=== PATIENT | male | born 1995 | race Caucasian/White ===

== ENCOUNTER 2018-03-20 15:54 | Emergency (ER) | payer SELFPAY ==
[2018-03-20 16:16] VITALS: BP 108/64; PULSE 96; RESP 18; TEMP 36.8; O2SAT 95
[2018-03-20] MEDS: Dexamethasone 4 MG TAB 10 MG PO (17:12)
--- NOTE | 2018-03-20 20:30 | ED.GENADUL_ITS ---
Discharge Plan Disposition Patient Disposition: HOME Condition: Good Discharge Details Chief Complaint: Sorethroat Clinical Impression: Acute sore throat Primary Care Provider: Manuel Monroy ED Provider: Richy Eagle Home Meds and New Rx's Prescriptions: New acetaminophen [Mapap Extra Strength] 500 MG tablet 1,000 mg PO Q6H 5 Days Qty: 60 RF: 0 ibuprofen [Motrin IB] 200 MG tablet 600 mg PO Q6H 5 Days Qty: 60 RF: 0 No Action acetaminophen [Mapap Extra Strength] 500 MG tablet 1,000 mg PO Q6H 5 Days Qty: 60 RF: 0 cephalexin [Keflex] 500 MG capsule 500 mg PO Q6H Qty: 28 RF: 0 Ibuprofen [Motrin Ib] 200 MG Tablet 600 mg PO Q6H 5 Days Qty: 60 RF: 0 Discharge Instructions Instructions: Upper Respiratory Infection (ED) Additional Instructions: Please take the Tylenol and Motrin as directed. Please drink 8-10 cups of water per day. If you notice any worsening of your symptoms, or any new symptoms such as vomiting, diarrhea, fever, chills, shortness of breath, chest pain, numbness, weakness, or fainting , please return immediately to the emergency department for reevaluation. Please follow up with your primary care provider as soon as possible for reassessment and reevaluation. As always, it was a pleasure participating in your medical care today. Referrals: Manuel Monroy MD [Primary Care Provider] - Discharge Data Discharge Date/Time-TO BE ENTERED AT DEPARTURE: 03/20/18 17:13 Medical Decision Making This is a 22-year-old male who presents with 2 days of sore throat, no associated fever, no difficulty swallowing. No red flags on physical exam or history. No fever with normal vital signs. Strep test was negative. At this time I feel he has a viral upper respiratory infection. We will treat with Decadron, and Tylenol and Motrin for home use. We discussed red flags for which to return including the importance of close follow-up and good hydration and the patient understands. I have extensively reviewed the treatment plan and discharge instructions with the patient. I have addressed all patient concerns at this time. The patient was made aware of what symptoms to monitor for that would warrant a return to the emergency department. Discussed the plan with the patient, they demonstrate verbal understanding and agreement with our assessment and plan at this time. HPI General Date/Time Provider Initiated Documentation: 03/20/18 16:19 . HPI Narrative: This is a 22-year-old male with no significant past medical history who does not smoke or drink alcohol. He presents today with 2 days of sore throat. He denies any cough, chest pain or wheeze. He denies any ear pain. He denies any fever or chills. He describes the sore throat as achy and sharp in nature. He has no difficulty swallowing, controlling his secretions, or drinking. He does have some associated symptoms of congestion in the nares, and a mild runny nose. He has not taken any medications for improvement of his symptoms. He denies any aggravating or relieving factors. He denies any other associated symptoms. He does have some sick contacts that he works with at work. Patient denies any previous surgeries. He has no other complaints. He denies any pertinent family history or IV or illicit drug use. Related Data Home Medications Medication Instructions Recorded Confirmed Ibuprofen [Motrin Ib] 600 mg PO Q6H 5 Days #60 tablet 12/21/17 acetaminophen [Tylenol Extra 1,000 mg PO Q6H 5 Days #60 tab 12/21/17 Strength] cephalexin [Keflex] 500 mg PO Q6H #28 capsule 12/21/17 acetaminophen [Mapap Extra 1,000 mg PO Q6H 5 Days #60 tab 03/20/18 Strength] ibuprofen [Motrin Ib] 600 mg PO Q6H 5 Days #60 tab 03/20/18 Previous Rx's Medication Instructions Recorded Ibuprofen [Motrin Ib] 600 mg PO Q6H 5 Days #60 tablet 12/21/17 acetaminophen [Tylenol Extra 1,000 mg PO Q6H 5 Days #60 tab 12/21/17 Strength] cephalexin [Keflex] 500 mg PO Q6H #28 capsule 12/21/17 acetaminophen [Mapap Extra 1,000 mg PO Q6H 5 Days #60 tab 03/20/18 Strength] ibuprofen [Motrin Ib] 600 mg PO Q6H 5 Days #60 tab 03/20/18 Allergies Allergy/AdvReac Type Severity Reaction Status Date / Time codeine Allergy Intermediate Unverified 12/21/17 18:13 General Stated Complaint: Sorethroat ADRIANA: 4 Review of Systems Review of Systems All systems reviewed & are unremarkable except as noted in HPI and below PFSH Social History Smoking/Tobacco Use Status: Never Exam Narrative Exam Narrative: 1.Const: Well-nourished, Well-developed, appearing stated age 2.Eyes: PERRL, no conjunctival injection, and symmetrical lids. 3.ENT: Atraumatic external nose and ears. Moist MM. Neck: Symmetric, trachea midline, No thyromegaly. Minimal erythema in the posterior oropharynx. Trachea is midline, uvula is midline, no significant peritonsillar exudates, or swelling. No signs of airway compromise. Minimal cervical lymphadenopathy. Ears demonstrate no evidence of effusion or infection 4.CVS: +S1/S2, No murmurs or gallops. Peripheral pulses 2+ and equal in all extremities. Brisk capillary refill in all extremities. 5.RESP: Unlabored respiratory effort. Clear to auscultation bilaterally. No wheezes rales or rhonchi 6.GI: Soft, Nontender/Nondistended, No hepatosplenomegaly. No guarding or rebound. 7.MSK: Normocephalic/Atraumatic, Extremities w/o deformity or ttp No cyanosis or clubbing, Normal movement of all extremities 8.Skin: Warm, Dry. No rashes or lesions. 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 Sensation grossly intact, no focal neurologic deficits. 10.Psych: (AAO) x3. Appropriate mood and affect Course Vital Signs Temperature 36.8 C 03/20/18 16:16 Pulse 96 H 03/20/18 16:16 Respiratory Rate 18 03/20/18 16:16 Blood Pressure 108/64 03/20/18 16:16 Pulse Oximetry 95 03/20/18 16:16 Temperature 36.8 C 03/20/18 16:16 Temperature Source Temporal Artery Scan 03/20/18 16:16 Pulse 96 H 03/20/18 16:16 Respiratory Rate 18 03/20/18 16:16 Respiratory Effort 03/20/18 16:18 Blood Pressure 108/64 03/20/18 16:16 Blood Pressure Position Sitting 03/20/18 16:16 Pulse Oximetry 95 03/20/18 16:16 Oxygen Delivery Method Room Air 03/20/18 16:16 Oxygen Flow Rate 0 03/20/18 16:16 Pain Level 10 03/20/18 17:12 Lab/Test Results Lab/Test Results: 03/20/18 16:41 Pharynx Streptococcus Screen (SHERICE) - Pending POC Strep Test-DEBBY(Rapid) Start: 03/20/18 16: 19 Freq: .Rapid Strep Test Status: Active Protocol: Document 03/20/18 16:37 GO (Rec: 03/20/18 16:37 GO [email or web address]) Strep test-DEBBY(Rapid)-POC POC-Strep test-DEBBY (Rapid) Negative POC-Strep test-DEBBY (Rapid) Negative
== END 2018-03-20 18:00 | disposition home or self-care (01) ==
PROVIDERS: Emergency Provider Student in an Organized Health Care Education/Training Program; PCP Pediatrics
DX: J02.8 Acute pharyngitis due to other specified organisms (principal)
CPT/HCPCS: 87880; 99283; 87081; J8540

== ENCOUNTER 2018-04-06 19:46 | Emergency (ER) | payer SELFPAY ==
[2018-04-06 19:53] VITALS: BP 139/89; PULSE 77; RESP 18; TEMP 37.3; O2SAT 99
--- NOTE | 2018-04-06 20:07 | W.ED.GENAD ---
Discharge Plan Disposition Patient Disposition: HOME Condition: Stable Discharge Details Chief Complaint: Orthopedic Clinical Impression: Peripheral neuropathy Primary Care Provider: Manuel Monroy ED Provider: Breonna Bates Home Meds and New Rx's Prescriptions: Continue acetaminophen [Mapap Extra Strength] 500 MG tablet 1,000 mg PO Q6H 5 Days Qty: 60 RF: 0 Ibuprofen [Motrin Ib] 200 MG Tablet 600 mg PO Q6H 5 Days Qty: 60 RF: 0 Discharge Instructions Instructions: Carpal Tunnel Syndrome (GEN), Peripheral Neuropathy (ED) Additional Instructions: You have possible carpal tunnel syndrome. Rest your hands as much as possible. Apply ice to the affected area several times daily for 20 minutes at a time. Alternate Tylenol and Motrin as needed and directed for pain. Follow-up at the [facility] for referral to orthopedics or neurology if symptoms persist or worsen. Return to the emergency department with any worsening or new concerning symptoms. Discharge Data Discharge Date/Time-TO BE ENTERED AT DEPARTURE: 04/06/18 20:15 Discharge Physician: Breonna Bates Medical Decision Making 22-year-old male who presents with paresthesias in right first through third fingers and possibly in right fourth and fifth fingers of the past 3 days. Has a history of previous right wrist scaphoid fracture and surgery. Denies recent injury. 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 Vitals within normal limits. Altered two-point discrimination noted in right first and third fingers but remainder of neurological exam grossly intact. Normal motor function right hand. Neurovascularly intact. Patient has no other acute CVA symptoms or signs. Discussed with patient that considering his profession with frequent use of his hands, his previous wrist injury and surgery, lack of other acute focal deficits, this is most likely a peripheral neuropathy. Patient is in agreement and wanted an evaluation. Patient is declining any CT imaging of his head or x-ray of his wrist. [facility] Will [facility] a wrist splint. Patient is instructed on the importance of rest, ice, Motrin, Tylenol as well as follow-up with orthopedics or neurology at the [facility] as indicated. HPI General Mode of arrival: ambulatory. Date/Time Provider Initiated Documentation: 04/06/18 19:47. Limitations to Documentation: no limitations. Information obtained by: patient. HPI Narrative: Patient is a 22-year-old male who presents to the ED w/ a c/o tingling mainly in right first through third fingers and possibly in 4th and 5th fingers for the past 3 days. Pt has a h/o R wrist scaphoid fracture several years ago and had previous wrist surgery and was told that he could possibly need repeat wrist surgery at some point but has not followed up again. Pt states he does have some R wrist pain. 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 States he awoke with the pain 3 days ago and thinks he may also could have slept on it wrong. He denies headache, blurry vision, dizziness, right hand weakness, right leg weakness or numbness, chest pain, shortness of breath. Past medical history: None Surgical history: None Social history: Denies tobacco, alcohol, or drugs Meds: None Allergies: None [facility] Related Data Home Medications Medication Instructions Recorded Confirmed Ibuprofen [Motrin Ib] 600 mg PO Q6H 5 Days #60 tablet 12/21/17 04/06/18 acetaminophen [Mapap Extra 1,000 mg PO Q6H 5 Days #60 tab 12/21/17 04/06/18 Strength] Previous Rx's Medication Instructions Recorded Ibuprofen [Motrin Ib] 600 mg PO Q6H 5 Days #60 tablet 12/21/17 acetaminophen [Mapap Extra 1,000 mg PO Q6H 5 Days #60 tab 12/21/17 Strength] Allergies Allergy/AdvReac Type Severity Reaction Status Date / Time codeine Allergy Intermediate Unverified 04/06/18 19:53 General Stated Complaint: Orthopedic ADRIANA: 4 Review of Systems Review of Systems All systems reviewed & are unremarkable except as noted in HPI and below Constitutional Reports as per HPI, Denies chills, Denies fever(s) and Denies weakness Eyes Denies blurry vision ENT Denies dizziness, Denies sore throat and Denies throat swelling Cardiovascular Denies chest pain and Denies dyspnea Respiratory Denies dyspnea Gastrointestinal Denies abdominal pain, Denies diarrhea and Denies vomiting Genitourinary Denies hematuria and Denies dysuria Musculoskeletal Denies back pain and Denies numbness Integumentary/Breasts Denies lesions and Denies rash Neurologic Denies dizziness, Denies numbness, Reports paresthesias and Denies weakness Allergic/Immunologic Denies throat swelling PFSH Social History Smoking/Tobacco Use Status: Never Exam Const General: cooperative, healthy appearing and no acute distress HENMT Head: normal to inspection Mouth: oral mucosae normal Eyes General: appearance normal, both eyes and all related structures Pupils: PERRL EOM: EOM intact bilaterally Neck Neck: normal visual inspection Resp Effort & Inspection: normal respiratory effort and able to speak in complete sentences Auscultation: clear to auscultation bilaterally Cardio Rate: regular rate Rhythm: regular rhythm Skin General skin exam: no rashes or lesions noted Neuro General: alert, awake and oriented x3 Cranial Nerves: CN's II-XI intact bilaterally Motor: muscle tone normal throughout, strength 5/5 throughout and other Sensory Exam: other Extrem General: normal to inspection, full ROM and normal capillary refill Right upper extremity: wrist (Mild tenderness to palpation of right volar wrist without erythema, edema, ecchymosis, deformity. Positive Phalen's test on right. Negative Tinel's) Other: B/L radial/ulnar pulses intact. Psych Appearance: grossly normal Affect: normal affect Course Vital Signs Temperature 99.1 F 04/06/18 19:53 Pulse 77 04/06/18 19:53 Respiratory Rate 18 04/06/18 19:53 Blood Pressure 139/89 04/06/18 19:53 Pulse Oximetry 99 04/06/18 19:53 Temperature 99.1 F 04/06/18 19:53 Temperature Source Temporal Artery Scan 04/06/18 19:53 Pulse 77 04/06/18 19:53 Respiratory Rate 18 04/06/18 19:53 Respiratory Effort 04/06/18 19:53 Blood Pressure 139/89 04/06/18 19:53 Blood Pressure Position Sitting 04/06/18 19:53 Pulse Oximetry 99 04/06/18 19:53 Oxygen Delivery Method Room Air 04/06/18 19:53 Oxygen Flow Rate 0 04/06/18 19:53 Pain Level 0 04/06/18 19:53
--- NOTE | 2018-04-06 20:10 | ED.GENADUL_ITS ---
Discharge Plan Disposition Patient Disposition: HOME Condition: Stable Discharge Details Chief Complaint: Orthopedic Clinical Impression: Peripheral neuropathy Primary Care Provider: Manuel Monroy ED Provider: Breonna Bates Home Meds and New Rx's Prescriptions: Continue acetaminophen [Mapap Extra Strength] 500 MG tablet 1,000 mg PO Q6H 5 Days Qty: 60 RF: 0 Ibuprofen [Motrin Ib] 200 MG Tablet 600 mg PO Q6H 5 Days Qty: 60 RF: 0 Discharge Instructions Instructions: Carpal Tunnel Syndrome (GEN), Peripheral Neuropathy (ED) Additional Instructions: You have possible carpal tunnel syndrome. Rest your hands as much as possible. Apply ice to the affected area several times daily for 20 minutes at a time. Alternate Tylenol and Motrin as needed and directed for pain. Follow-up at the [facility] for referral to orthopedics or neurology if symptoms persist or worsen. Return to the emergency department with any worsening or new concerning symptoms. Discharge Data Discharge Date/Time-TO BE ENTERED AT DEPARTURE: 04/06/18 20:15 Discharge Physician: Breonna Bates Medical Decision Making 22-year-old male who presents with paresthesias in right first through third fingers and possibly in right fourth and fifth fingers of the past 3 days. Has a history of previous right wrist scaphoid fracture and surgery. Denies recent injury. 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 Vitals within normal limits. Altered two-point discrimination noted in right first and third fingers but remainder of neurological exam grossly intact. Normal motor function right hand. Neurovascularly intact. Patient has no other acute CVA symptoms or signs. Discussed with patient that considering his profession with frequent use of his hands, his previous wrist injury and surgery , lack of other acute focal deficits, this is most likely a peripheral neuropathy. Patient is in agreement and wanted an evaluation. Patient is declining any CT imaging of his head or x-ray of his wrist. [facility] Will [facility] a wrist splint. Patient is instructed on the importance of rest, ice, Motrin, Tylenol as well as follow-up with orthopedics or neurology at the [facility] as indicated. HPI General Mode of arrival: ambulatory . Date/Time Provider Initiated Documentation: 04/06/18 19:47 . Limitations to Documentation: no limitations . Information obtained by: patient . HPI Narrative: Patient is a 22-year-old male who presents to the ED w/ a c/o tingling mainly in right first through third fingers and possibly in 4th and 5th fingers for the past 3 days. Pt has a h/o R wrist scaphoid fracture several years ago and had previous wrist surgery and was told that he could possibly need repeat wrist surgery at some point but has not followed up again. Pt states he does have some R wrist pain. 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 States he awoke with the pain 3 days ago and thinks he may also could have slept on it wrong. He denies headache, blurry vision, dizziness, right hand weakness, right leg weakness or numbness, chest pain, shortness of breath. Past medical history: None Surgical history: None Social history: Denies tobacco, alcohol, or drugs Meds: None Allergies: None [facility]CP: [facility] Related Data Home Medications Medication Instructions Recorded Confirmed Ibuprofen [Motrin Ib] 600 mg PO Q6H 5 Days #60 tablet 12/21/17 04/06/18 acetaminophen [Mapap Extra 1,000 mg PO Q6H 5 Days #60 tab 12/21/17 04/06/18 Strength] Previous Rx's Medication Instructions Recorded Ibuprofen [Motrin Ib] 600 mg PO Q6H 5 Days #60 tablet 12/21/17 acetaminophen [Mapap Extra 1,000 mg PO Q6H 5 Days #60 tab 12/21/17 Strength] Allergies Allergy/AdvReac Type Severity Reaction Status Date / Time codeine Allergy Intermediate Unverified 04/06/18 19:53 General Stated Complaint: Orthopedic ADRIANA: 4 Review of Systems Review of Systems All systems reviewed & are unremarkable except as noted in HPI and below Constitutional Reports as per HPI, Denies chills, Denies fever(s) and Denies weakness Eyes Denies blurry vision ENT Denies dizziness, Denies sore throat and Denies throat swelling Cardiovascular Denies chest pain and Denies dyspnea Respiratory Denies dyspnea Gastrointestinal Denies abdominal pain, Denies diarrhea and Denies vomiting Genitourinary Denies hematuria and Denies dysuria Musculoskeletal Denies back pain and Denies numbness Integumentary/Breasts Denies lesions and Denies rash Neurologic Denies dizziness, Denies numbness, Reports paresthesias and Denies weakness Allergic/Immunologic Denies throat swelling PFSH Social History Smoking/Tobacco Use Status: Never Exam Const General: cooperative, healthy appearing and no acute distress HENMT Head: normal to inspection Mouth: oral mucosae normal Eyes General: appearance normal, both eyes and all related structures Pupils: PERRL EOM: EOM intact bilaterally Neck Neck: normal visual inspection Resp Effort & Inspection: normal respiratory effort and able to speak in complete sentences Auscultation: clear to auscultation bilaterally Cardio Rate: regular rate Rhythm: regular rhythm Skin General skin exam: no rashes or lesions noted Neuro General: alert, awake and oriented x3 Cranial Nerves: CN's II-XI intact bilaterally Motor: muscle tone normal throughout, strength 5/5 throughout and other Sensory Exam: other Extrem General: normal to inspection, full ROM and normal capillary refill Right upper extremity: wrist (Mild tenderness to palpation of right volar wrist without erythema, edema, ecchymosis, deformity. Positive Phalen's test on right. Negative Tinel's) Other: B/L radial/ulnar pulses intact. Psych Appearance: grossly normal Affect: normal affect Course Vital Signs Temperature 99.1 F 04/06/18 19:53 Pulse 77 04/06/18 19:53 Respiratory Rate 18 04/06/18 19:53 Blood Pressure 139/89 04/06/18 19:53 Pulse Oximetry 99 04/06/18 19:53 Temperature 99.1 F 04/06/18 19:53 Temperature Source Temporal Artery Scan 04/06/18 19:53 Pulse 77 04/06/18 19:53 Respiratory Rate 18 04/06/18 19:53 Respiratory Effort 04/06/18 19:53 Blood Pressure 139/89 04/06/18 19:53 Blood Pressure Position Sitting 04/06/18 19:53 Pulse Oximetry 99 04/06/18 19:53 Oxygen Delivery Method Room Air 04/06/18 19:53 Oxygen Flow Rate 0 04/06/18 19:53 Pain Level 0 04/06/18 19:53
== END 2018-04-06 20:15 | disposition home or self-care (01) ==
LOC: ER 20:11
PROVIDERS: Emergency Provider Physician Assistant; PCP Pediatrics
DX: G90.09 Other idiopathic peripheral autonomic neuropathy (principal)
CPT/HCPCS: 99283; L3908

== ENCOUNTER 2018-11-24 22:16 | Emergency (ER) | payer SELFPAY ==
[2018-11-24 22:26] VITALS: BP 122/79; PULSE 71; RESP 16; TEMP 36.9; O2SAT 96
--- NOTE | 2018-11-24 23:26 | W.ED.GENAD ---
Discharge Plan Disposition Patient Disposition: HOME Condition: Stable Discharge Details Chief Complaint: EyeProblem Clinical Impression: Acute foreign body of right cornea Primary Care Provider: Manuel Monroy ED Provider: Crow Gama Home Meds and New Rx's Prescriptions: Continued acetaminophen [Mapap Extra Strength] 500 MG tablet 1,000 mg PO Q6H 5 Days Qty: 60 RF: 0 Ibuprofen [Motrin Ib] 200 MG Tablet 600 mg PO Q6H 5 Days Qty: 60 RF: 0 Discharge Instructions Instructions: Eye Foreign Body (ED) Additional Instructions: Please use the provided ointment 4 times daily for the next 5 to 7 days. You should call or go to [facility] tomorrow for reassessment and any further treatment as needed. Return to the emergency department for any significant or new symptoms. Referrals: [facility] [Outside] - 1 day Discharge Data Discharge Date/Time-TO BE ENTERED AT DEPARTURE: 11/24/18 23:47 Medical Decision Making 1 day ago patient was grinding metal and does not remember any foreign body getting in his eye but this morning when he woke up he had a irritated red right eye that felt similar to previous episodes of getting metal in his eye. Patient denies any visual loss but does state blurry vision. Slit lamp examination along with Pineda lamp and dye does show a metallic appearing foreign body just medial to the pupil in the 4 o'clock position. Attempted to remove with cotton swab which was unsuccessful but was able to remove a small metallic foreign body using a 18-gauge needle. Reexamine the eye with slit lamp and there does appear to be a rust ring versus small retained metallic foreign body but given patient's light sensitivity and difficulty even performing the procedure the first time I do not feel it beneficial to continue to keep attempting as I think this is more than likely a rust ring. Patient placed up on erythromycin ointment and given ketorolac IM injection for pain control. Patient already sees [facility] so he was recommended to call their office tomorrow morning for arrangement of follow-up appointment. Patient states he was in the and is for sure that he has had a tetanus within the last 5 years. After discussion of diagnosis and plan of care patient has no further needs, questions, or concerns and states clear understanding to return to the emergency department for any worsening symptoms. HPI General Mode of arrival: ambulatory. Date/Time Provider Initiated Documentation: 11/24/18 22:20. Limitations to Documentation: no limitations. Information obtained by: patient and RN notes reviewed. History of Present Illness 23 year old M presents to the emergency department with the chief complaint of Right eye pain, described as severe, with intensity rated at 8. Quality is described as burning and sharp, and is localized to the eyes and right. Patient started experiencing this hour(s) (14) and it has been constant. No relieving factors improve symptom(s), Patient notes no other symptoms.. Patient did receive the following treatments prior to arrival, none Related Data Home Medications Medication Instructions Recorded Confirmed Ibuprofen [Motrin Ib] 600 mg PO Q6H 5 Days #60 tablet 12/21/17 04/06/18 acetaminophen [Mapap Extra 1,000 mg PO Q6H 5 Days #60 tab 12/21/17 11/24/18 Strength] Previous Rx's Medication Instructions Recorded Ibuprofen [Motrin Ib] 600 mg PO Q6H 5 Days #60 tablet 12/21/17 acetaminophen [Mapap Extra 1,000 mg PO Q6H 5 Days #60 tab 12/21/17 Strength] Allergies Allergy/AdvReac Type Severity Reaction Status Date / Time codeine Allergy Intermediate Unverified 04/06/18 19:53 General Stated Complaint: EyeProblem ADRIANA: 3 Review of Systems Constitutional Denies fever(s) and Denies headache(s) Eyes Reports as per HPI, Denies blind spots, Reports blurry vision, Reports irritation, Denies other visual disturbances, Reports eye pain and Reports photophobia ENT Denies headache(s) Neurologic Denies headache(s) REPLACED BY [facility] Social History Smoking/Tobacco Use Status: Never Drug use: Never Do you feel safe in your relationship?: Yes Exam HENMT Head: normal to inspection, normocephalic and atraumatic Eyes Visual Rahman: normal visual rahman by confrontation Alignment and Position: alignment normal Periorbital: periorbital findings normal Eyelids: eyelids normal Conjunctivae: conjunctival abnormality right conjunctival injection diffuse Sclera: sclerae normal Cornea: corneas abnormal on the right fluorescein used and foreign body (4 o'clock) metallic and with rust ring present and fluorescein used Pupils: PERRL and accommodation normal Course Vital Signs Temperature 36.9 C 11/24/18 22:26 Pulse 71 11/24/18 22:26 Respiratory Rate 16 11/24/18 22:26 Blood Pressure 122/79 11/24/18 22:26 Pulse Oximetry 96 11/24/18 22:26 Temperature 36.9 C 11/24/18 22:26 Temperature Source Tympanic 11/24/18 22:26 Pulse 71 11/24/18 22:26 Respiratory Rate 16 11/24/18 22:26 Respiratory Effort Non-Labored 11/24/18 22:31 Blood Pressure 122/79 11/24/18 22:26 Blood Pressure Position Sitting 11/24/18 22:26 Pulse Oximetry 96 11/24/18 22:26 Oxygen Delivery Method Room Air 11/24/18 22:26 Oxygen Flow Rate 0 11/24/18 22:26 Pain Level 8 11/24/18 22:26
--- NOTE | 2018-11-24 23:31 | ED.GENADUL_ITS ---
Discharge Plan Disposition Patient Disposition: HOME Condition: Stable Discharge Details Chief Complaint: EyeProblem Clinical Impression: Acute foreign body of right cornea Primary Care Provider: Manuel Monroy ED Provider: Crow Gama Home Meds and New Rx's Prescriptions: Continued acetaminophen [Mapap Extra Strength] 500 MG tablet 1,000 mg PO Q6H 5 Days Qty: 60 RF: 0 Ibuprofen [Motrin Ib] 200 MG Tablet 600 mg PO Q6H 5 Days Qty: 60 RF: 0 Discharge Instructions Instructions: Eye Foreign Body (ED) Additional Instructions: Please use the provided ointment 4 times daily for the next 5 to 7 days. You should call or go to [facility] tomorrow for reassessment and any further treatment as needed. Return to the emergency department for any significant or new symptoms. Referrals: [facility] [Outside] - 1 day Discharge Data Discharge Date/Time-TO BE ENTERED AT DEPARTURE: 11/24/18 23:47 Medical Decision Making 1 day ago patient was grinding metal and does not remember any foreign body getting in his eye but this morning when he woke up he had a irritated red right eye that felt similar to previous episodes of getting metal in his eye. Patient denies any visual loss but does state blurry vision. Slit lamp exam ination along with Pineda lamp and dye does show a metallic appearing foreign body just medial to the pupil in the 4 o'clock position. Attempted to remove with cotton swab which was unsuccessful but was able to remove a small metallic foreign body using a 18-gauge needle. Reexamine the eye with slit lamp and there does appear to be a rust ring versus small retained metallic foreign body but given patient's light sensitivity and difficulty even performing the procedure the first time I do not feel it beneficial to continue to keep attempting as I think this is more than likely a rust ring. Patient placed up on erythromycin ointment and given ketorolac IM injection for pain control. Patient already sees [facility] so he was recommended to call their office tomorrow morning for arrangement of follow-up appointment. Patient states he was in the and is for sure that he has had a tetanus within the last 5 years. After discussion of diagnosis and plan of care patient has no further needs, questions, or concerns and states clear understanding to return to the emergency department for any worsening symptoms. HPI General Mode of arrival: ambulatory . Date/Time Provider Initiated Documentation: 11/24/18 22:20 . Limitations to Documentation: no limitations . Information obtained by: patient and RN notes reviewed . History of Present Illness 23 year old M presents to the emergency department with the chief complaint of Right eye pain, described as severe, with intensity rated at 8. Quality is described as burning and sharp, and is localized to the eyes and right. Patient started experiencing this hour(s) (14) and it has been constant. No relieving factors improve symptom(s), Patient notes no other symptoms.. Patient did receive the following treatments prior to arrival, none Related Data Home Medications Medication Instructions Recorded Confirmed Ibuprofen [Motrin Ib] 600 mg PO Q6H 5 Days #60 tablet 12/21/17 04/06/18 acetaminophen [Mapap Extra 1,000 mg PO Q6H 5 Days #60 tab 12/21/17 11/24/18 Strength] Previous Rx's Medication Instructions Recorded Ibuprofen [Motrin Ib] 600 mg PO Q6H 5 Days #60 tablet 12/21/17 acetaminophen [Mapap Extra 1,000 mg PO Q6H 5 Days #60 tab 12/21/17 Strength] Allergies Allergy/AdvReac Type Severity Reaction Status Date / Time codeine Allergy Intermediate Unverified 04/06/18 19:53 General Stated Complaint: EyeProblem ADRIANA: 3 Review of Systems Constitutional Denies fever(s) and Denies headache(s) Eyes Reports as per HPI, Denies blind spots, Reports blurry vision, Reports irritation, Denies other visual disturbances, Reports eye pain and Reports photophobia ENT Denies headache(s) Neurologic Denies headache(s) [facility] Social History Smoking/Tobacco Use Status: Never Drug use: Never Do you feel safe in your relationship?: Yes Exam HENMT Head: normal to inspection, normocephalic and atraumatic Eyes Visual Rahman: normal visual rahman by confrontation Alignment and Position: alignment normal Periorbital: periorbital findings normal Eyelids: eyelids normal Conjunctivae: conjunctival abnormality right conjunctival injection diffuse Sclera: sclerae normal Cornea: corneas abnormal on the right fluorescein used and foreign body (4 o'clock) metallic and with rust ring present and fluorescein used Pupils: PERRL and accommodation normal Course Vital Signs Temperature 36.9 C 11/24/18 22:26 Pulse 71 11/24/18 22:26 Respiratory Rate 16 11/24/18 22:26 Blood Pressure 122/79 11/24/18 22:26 Pulse Oximetry 96 11/24/18 22:26 Temperature 36.9 C 11/24/18 22:26 Temperature Source Tympanic 11/24/18 22:26 Pulse 71 11/24/18 22:26 Respiratory Rate 16 11/24/18 22:26 Respiratory Effort Non-Labored 11/24/18 22:31 Blood Pressure 122/79 11/24/18 22:26 Blood Pressure Position Sitting 11/24/18 22:26 Pulse Oximetry 96 11/24/18 22:26 Oxygen Delivery Method Room Air 11/24/18 22:26 Oxygen Flow Rate 0 11/24/18 22:26 Pain Level 8 11/24/18 22:26
[2018-11-24] MEDS: Ketorolac 30 MG/ML VIAL IM (23:41)
[2018-11-24 23:45] VITALS: BP 122/79; PULSE 71; RESP 16; O2SAT 96
== END 2018-11-24 23:47 | disposition home or self-care (01) ==
PROVIDERS: Emergency Provider Nurse Practitioner Family; PCP Pediatrics
DX: T15.01XA Foreign body in cornea, right eye, initial encounter (principal); X58.XXXA Exposure to other specified factors, initial encounter
CPT/HCPCS: 96372; 99284; J1885

== ENCOUNTER 2019-02-01 06:59 | Emergency (ER) | payer OTHER, SELFPAY ==
[2019-02-01 07:04] VITALS: BP 133/83; PULSE 108; RESP 20; TEMP 37.3; O2SAT 98
[2019-02-01] MEDS: cloNIDine 0.1 MG PATCH TD (07:37)
--- NOTE | 2019-02-01 09:25 | W.ED.FU ---
Follow Up Plan: Pt was present in the emergency department at a time of high volume/Pt acuity. I had a brief encounter requesting that the Pt wait for further evaluation/treatment while other Pts were stabilized. Pt was amenable to waiting. He was well and non-toxic appearing, in no distress. Pt apparently eloped from the emergency department per nursing prior to full evaluation.
== END 2019-02-01 08:30 | disposition other institution (70) ==
PROVIDERS: Emergency Provider Student in an Organized Health Care Education/Training Program
DX: Z53.21 Procedure and treatment not carried out due to patient leaving prior to being seen by health care provider (principal)

== ENCOUNTER 2020-10-17 10:55 | Emergency (ER) | payer OTHER, SELFPAY ==
[2020-10-17 11:06] VITALS: BP 134/83; PULSE 98; RESP 20; TEMP 36.2; O2SAT 96
--- NOTE | 2020-10-17 11:41 | W.ED.GENAD ---
Discharge Plan Disposition Patient Disposition: HOME Condition: Stable Discharge Details Clinical Impression: Cellulitis Primary Care Provider: Elicia,Local ED Provider: Barrington Arciniega Home Meds and New Rx's Prescriptions: New cephalexin 500 mg capsule 500 mg PO QID 10 Days Qty: 40 RF: 0 Continued methadone 10 mg/mL Concentrate 105 mg PO DAILY RF: 0 Discharge Instructions Instructions: Cellulitis (ED) Additional Instructions: Keflex as directed. [id number] Tylenol and/or Motrin as directed for discomfort. Cool and/or warm compresses every 2 hours for 20 minutes. Epson salt soaks as tolerated. Please watch for new or worsening symptoms and return to the ER for any concerns. I have placed you on the podiatry list to help expedite outpatient definitive care. Contact their office later today to discuss outpatient evaluation. Stand Alone Forms: Work Release Referrals: Lazaro Voss DPM [[facility] STAFF PHYSICIAN] - Discharge Data Discharge Date/Time-TO BE ENTERED AT DEPARTURE: 10/17/20 11:49 Medical Decision Making 25-year-old male presents with 4-month history of right great toe pain. Clinically there is no evidence of a pointing paronychia, or need for emergent procedure to decompress an entrapped nail at this time. Will initiate Keflex antibiotic therapy, give a work note for the next 2 days, and place him on the podiatry list to help expedite more definitive care if this was to recur again. Patient agreeable to this plan, has no additional questions or concerns at this time Medical Records Medical records reviewed: Yes I reviewed the patient's medical records. HPI General Mode of arrival: ambulatory. Date/Time Provider Initiated Documentation: 10/17/20 11:09. Limitations to Documentation: no limitations. Information obtained by: patient. HPI Narrative: This is a 25-year-old gentleman who denies significant past medical history presenting for toe pain. He reports right great toe x4-month, worsening in general. He states that he has needed his toenail partially removed 3 times previous for 3 separate episodes of an ingrown toenail. He reports redness, drainage, but denies any red streaking up his foot or leg, fever, joint pain. He has to wear boots at work and reports that the boots make his pain. He has not taken any medication for his symptoms. He has never seen a credit risk modeler. Related Data Home Medications Medication Instructions Recorded Confirmed cephalexin 500 mg PO QID 10 Days #40 cap 10/17/20 methadone 105 mg PO DAILY 10/17/20 10/17/20 Previous Rx's Medication Instructions Recorded cephalexin 500 mg PO QID 10 Days #40 cap 10/17/20 Allergies Allergy/AdvReac Type Severity Reaction Status Date / Time codeine Allergy Intermediate Unverified 10/17/20 11:08 General Stated Complaint: Cellulitis ADRIANA: 4 Review of Systems Constitutional Constitutional: Denies fever(s) Musculoskeletal Musculoskeletal: Denies arthralgias, Denies numbness and Denies tingling Integumentary/Breasts Skin/Breast: Reports erythema Neurologic Neurologic: Denies numbness and Denies tingling [facility] Social History Smoking/Tobacco Use Status: Never Smoking risk assessment performed?: Yes Alcohol Intake: never Drug use: Never Do you feel safe at home: Yes Do you feel safe in your relationship?: Yes Exam Const General: cooperative, healthy appearing, comfortable and no acute distress Orientation: alert and awake [facility] Head: normal to inspection, normocephalic and atraumatic Eyes Conjunctivae: conjunctivae normal Neck Neck: normal visual inspection, trachea midline and supple Resp Effort & Inspection: normal respiratory effort and able to speak in complete sentences Cardio Rate: regular rate Rhythm: regular rhythm Skin Lesions: no lesions Neuro General: patient alert, patient awake, moves all extremities and no focal motor deficits Cognition: normal cognition Speech: speech normal Gait: normal gait Sensory Exam: no sensory deficits noted Extrem General: full ROM and capillary refill normal Other: Right great toe, erythema along the entire border of the nailbed. Warmth, tenderness, minimal swelling, slightly worse along the lateral aspect. There is no fluctuance, abscess, current drainage. Normal capillary refill. Skin is intact. Neuro, vascular, tendon intact. There is no erythema or tenderness over the 1st MTC joint Psych Appearance: grossly normal Mental Status: mental status grossly normal Course Vital Signs Vital signs: Vital Signs Temperature 36.2 C L 10/17/20 11:06 Pulse 98 H 10/17/20 11:06 Respiratory Rate 20 10/17/20 11:06 Blood Pressure 134/83 10/17/20 11:06 Pulse Oximetry 96 10/17/20 11:06 Temperature 36.2 C L 10/17/20 11:06 Temperature Source Skin 10/17/20 11:06 Pulse 98 H 10/17/20 11:06 Respiratory Rate 20 10/17/20 11:06 Blood Pressure 134/83 10/17/20 11:06 Blood Pressure Position Sitting 10/17/20 11:06 Pulse Oximetry 96 10/17/20 11:06 Oxygen Delivery Method Room Air 10/17/20 11:06 Oxygen Flow Rate 0 10/17/20 11:06 Pain Level 7 10/17/20 11:06
== END 2020-10-17 11:49 | disposition home or self-care (01) ==
PROVIDERS: Emergency Provider Physician Assistant
DX: L60.0 Ingrowing nail (principal); L03.031 Cellulitis of right toe
CPT/HCPCS: 99283

== ENCOUNTER 2021-07-04 00:15 | Emergency (ER) | payer OTHER, MEDICAID, SELFPAY ==
--- NOTE | 2021-07-04 00:15 | RT.EKG_ITS ---
APPROVED REPORT Exam: Resting ECG Reason for Exam: sob, chest pain Patient Location: E HR:71 bpm ECG Measurements Heart Rate 71 AXIS ME 210 P 37 QRSd 96 QRS 74 QT 392 T 42 QTc 425 Conclusion Sinus rhythm...normal P axis, V-rate 60- 99 Prolonged ME interval...ME >210, V-rate 50- 90
[2021-07-04 00:23] VITALS: BP 126/62; PULSE 62; RESP 18; TEMP 36.8; O2SAT 100
--- NOTE | 2021-07-04 00:30 | DI.CT_ITS ---
Exam(s) CT CHEST PE ABD PELVIS W EXAM: CT CHEST PE ABD PELVIS W TECHNIQUE: CT angiography of the chest, abdomen and pelvis was performed with bolus infusion of 100 cc of Omnipaque 350. Axial CT angiography was performed with multi-slice acquisition and multi-planar and/or 3D reconstruc tions. COMPARISON: No exams were available for comparison FINDINGS: The lungs are clear except for a questionable minimal changes of bibasilar dependent atelectasis.. No pleural effusion. No evidence of pulmonary embolic disease. No thoracic aortic dissection or aneur ysm. Major branches of the thoracic aorta appear normal. No pleural effusion. No mediastinal or lauren r adenopathy. Tracheobronchial tree appears intact. No focal hepatic or renal abnormality seen. Gallbladder and bile ducts are CT normal. Pancreas is unr emarkable. Spleen is unremarkable. No abdominal aortic aneurysm or dissection. Major branches of the abdominal aorta appear normal. No a bdominal or pelvic adenopathy. Normal appendix. No significant abdominal wall hernia. No focal bowel pathology. IMPRESSION: No evidence of acute vascular abnormality of the chest, abdomen or pelvis. No other abnormalities are seen. RADIATION DOSE DELIVERED: 1,797.17mGy.cm Total DLP 1,797.17mGy.cm Total DLP 23.91mGy CTDIvol DATA REPOSITORY: All CT scans at this facility are submitted to the National Radiology Data Registry (NRDR) Dose Index Registry (DIR) with the [employer] ([employer]). RADIATION OPTIMIZATION: All CT scans at this facility use at least one of these dose optimization te chniques: automated exposure control; mA and/or kV adjustment per patient size (includes targeted exa ms where dose is matched to clinical indication); or iterative reconstruction.
--- NOTE | 2021-07-04 00:30 | W.ED.GENAD ---
Discharge Plan Disposition Patient Disposition: AGAINST MEDICAL ADVICE Condition: Stable Discharge Details Clinical Impression: Chest pain, Abdominal pain Primary Care Provider: Elicia,Local ED Provider: Ricardo Crabtree Home Meds and New Rx's Prescriptions: Continued methadone 10 mg/mL Concentrate 105 mg PO DAILY RF: 0 Discontinued cephalexin 500 mg capsule 500 mg PO QID 10 Days Qty: 40 RF: 0 Discharge Instructions Additional Instructions: your cat scan did not show a clear reason for your pain you should be contacted with a time to return to have an ultrasound done follow up with your primary care provider if you feel more ill, have fevers or severe worsening pain return to the emergency department Medical Decision Making 25 yo male who denies chronic medical problems comes in with cc of right sided pleuritic chest pain starting an hour or so ago while watching television. States during the day felt fine and has not had any fevers, chills, dyspnea. He has never had pain like this before. Deep breaths make the pain worse, otherwise no exacerbating factors and no pain with exertion. Arrives stable and points to anterior right lower chest where his pain is. No crepitus on exam but is tender on the right anterior chest and also has ruq tenderness in his abdomen, no lower abdomen tenderness. Clear lungs without murmurs, no leg swelling. Could be chest wall pain vs pleurisy but given acute onset of pain will obtain ecg and troponin, cta to evaluate for pe and ptx, and also ct abdomen/pelvis given the ruq pain for possible cholecystitis. labs show mild leukocytosis, lfts are elevated and this appears new for him. Denies alcohol use and no ivdu, will add on hepatitis panel. CT shows no pe or findings in the chest, abdomen shows potential colitis/proctocolitis but has no diarrhea or urinary symptoms. I recommended having him stay for an u/s and delta troponin/ecg but he declined and is requesting to go home. HE has capacity to make his own decisions and understands risks of leaving including potential and permanent disability with delayed diagnosis of cholecystitis and also nstemi and is he is still requesting to go home. He is leaving against my medical advise. I will place an order for him to have a gallbladder u/s and advised if he doesn't return to the ED to follow up with his pcp and also discussed he can return to the ED at any time if he changes his mind Differential Diagnosis Differential Diagnosis: chest wall pain, pe, cholecystitis Imaging Data Radiologic Study: Attestation: I personally reviewed and interpreted this imaging study as follows: Imaging: CT Scan Radiologist's impression: IMPRESSION: No active disease is seen in the chest Apparent mural thickening through compartment collapsed well evacuated segments of the proximal sigmoid colon, distal sigmoid colon, and rectum. Artifact of incomplete distention or acute colitis/proctocolitis could have this appearance. Clinical correlation is recommended. Lab Data Lab results reviewed: Yes I reviewed the patient's lab results. ECG Data Attestation: I personally reviewed and interpreted this ECG (s) as follows: Prior ECG tracings: not available for review Interpretation: sinus rhythm, rate of 71, no acute st t wave ischemic findings HPI General Mode of arrival: ambulatory. Date/Time Provider Initiated Documentation: 07/04/21 00:20. Limitations to Documentation: no limitations. Information obtained by: patient. History of Present Illness 25 year old M presents to the emergency department with the chief complaint of chest pain, described as moderate, Quality is described as stabbing, and is localized to the chest. Patient reports no radiation. Patient started experiencing this hour(s) (1) and it has been constant. No relieving factors improve symptom(s), Other factors that worsen symptoms (deep breathing) . Patient notes denies fever/chills. Patient did receive the following treatments prior to arrival, none Related Data Home Medications Medication Instructions Recorded Confirmed methadone 105 mg PO DAILY 10/17/20 10/17/20 Allergies Allergy/AdvReac Type Severity Reaction Status Date / Time codeine Allergy Intermediate Unverified 10/17/20 11:08 General Stated Complaint: Chest Pain ADRIANA: 3 Review of Systems All systems reviewed & are unremarkable except as noted in HPI and below Constitutional Constitutional: Denies chills, Denies fever(s) and Denies weakness Cardiovascular Cardiovascular: Denies dyspnea Respiratory Respiratory: Denies cough and Denies dyspnea Gastrointestinal Gastrointestinal: Denies nausea and Denies vomiting Genitourinary Genitourinary: Denies dysuria Neurologic Neurologic: Denies weakness Psychiatric Psychiatric: Denies depression [facility] All Active Problems (Updated 07/04/21 @ 01:41 by Ricardo Crabtree MD) Cellulitis (Acute) Chest pain (Acute) Abdominal pain (Acute) Social History Smoking/Tobacco Use Status: Never Smoking risk assessment performed?: Yes Alcohol Intake: never Drug use: Never Do you feel safe at home: Yes Do you feel safe in your relationship?: Yes Exam Const General: no acute distress Orientation: alert HENMT Head: normal to inspection Ears: external ears normal General nose exam: external nose normal Mouth: moist mucous membranes Eyes General: appearance normal, both eyes and all related structures Neck Neck: normal visual inspection Chest Chest: tenderness Resp Effort & Inspection: normal respiratory effort and able to speak in complete sentences Cardio Rate: regular rate GI Palpation: soft and tender Skin General skin exam: no rashes or lesions noted Neuro General: patient alert and patient oriented x3 Extrem General: normal to inspection Psych Mental Status: mental status grossly normal Course Vital Signs Vital signs: Vital Signs Temperature 36.8 C 07/04/21 00:23 Pulse 62 07/04/21 00:23 Respiratory Rate 18 07/04/21 00:23 Blood Pressure 126/62 07/04/21 00:23 Pulse Oximetry 100 07/04/21 00:23 Temperature 36.8 C 07/04/21 00:23 Temperature Source Temporal Artery Scan 07/04/21 00:23 Pulse 62 07/04/21 00:23 Respiratory Rate 18 07/04/21 00:23 Respiratory Effort 07/04/21 00:26 Respiratory Depth Normal 07/04/21 00:26 Respiratory Pattern Normal 07/04/21 00:26 Blood Pressure 126/62 07/04/21 00:23 Blood Pressure Position Supine 07/04/21 00:23 Pulse Oximetry 100 07/04/21 00:23 Oxygen Delivery Method Room Air 07/04/21 00:23 Oxygen Flow Rate 0 07/04/21 00:23 Pain Level 7 07/04/21 00:23
[2021-07-04 00:46] LABS: Abs Immature Grans 0.03 10^3/uL (0.0-0.06); Absolute Basophil Count 0.02 10^3/uL (0.0-0.2); Absolute Eosinophil Count 0.19 10^3/uL (0.0-0.7); Absolute Lymphocyte Count 2.86 10^3/uL (1.2-3.4); Absolute Monocyte Count 0.91 10^3/uL (0.1-0.8); Absolute Neutrophil Count 7.62 10^3/uL (1.2-6.7); Basophils % 0.2; Eosinophils % 1.6; HCT 37.5 % (40.0-50.0); HGB 12.2 g/dL (13.5-17.5); Immature Grans % 0.3; Lymphocytes % 24.6; MCH 29.8 pg (27.0-33.0); MCHC 32.5 % (32.0-36.0); MCV 91.5 fL (80-95); MPV 11.8 fL (8.0-11.0); Monocytes % 7.8; Neutrophils % 65.5; Nucleated RBC 0 %; Platelet Count 225 10^3/uL (130-400); RDW 11.7 % (11.8-14.1); RDW-SD 39.3 fL; WBC 11.63 10^3/uL (4.4-10.8)
[2021-07-04 01:03] LABS: ALT 95 U/L (16-63); AST 147 U/L (15-37); Albumin 3.5 g/dL (3.4-5.0); Alkaline Phosphatase 163 U/L (46-116); Anion Gap 5.8 mmol/L (3-11); BUN 9 mg/dL (7-18); Bilirubin, Total 0.4 mg/dL (0.2-1.0); CO2 29.2 mmol/L (21.0-32.0); CREATININE 1.1 mg/dL (0.70-1.30); Calcium 10.2 mg/dL (8.5-10.1); Chloride 104 mmol/L (98-107); Glucose 99 mg/dL (74-106); Lipase 57 U/L (73-393); Magnesium 1.7 mg/dL (1.8-2.4); Potassium 3.5 mmol/L (3.5-5.1); Sodium 139 mmol/L (136-145); Total Protein 7.3 g/dL (6.4-8.2); Troponin I < 50 ng/L (<or=60)
[2021-07-04] MEDS: Ketorolac 15 MG/ML VIAL IVP (01:04)
[2021-07-04] MEDS: Ondansetron 4 MG/2 ML VIAL IVP (01:05)
[2021-07-04] MEDS: MAGNESIUM SULFATE 1 GM/100 ML BAG IVPB (01:23)
--- NOTE | 2021-07-04 01:27 | DI.VRAD_ITS ---
PROCEDURE INFORMATION: Exam: CTA Chest With Contrast Exam date and time: 07/04/2021 12:31 AM Age: 25 years old Clinical indication: Other: Pleuritic right sided chest/abdomen pain TECHNIQUE: Imaging protocol: Computed tomographic angiography of the chest with contrast. 3D rendering (Not supervised by radiologist): MIP and/or 3D reconstructed images were created by the technologist. Radiation optimization: All CT scans at this facility use at least one of these dose optimization techniques: automated exposure control; mA and/or kV adjustment per patient size (includes targeted exams where dose is matched to clinical indication); or iterative reconstruction. Contrast material: OMNI 350; Contrast volume: 100 ml; Contrast route: INTRAVENOUS (IV); COMPARISON: No relevant prior studies available. FINDINGS: Pulmonary arteries: No pulmonary embolism identified. Aorta: No thoracic aortic aneurysm or dissection. Thyroid: Thyroid gland partially obscured by artifact but grossly unremarkable, as seen. Thyroid gland partially obscured by artifact but grossly unremarkable, as seen. Lungs: Lung beckett partially obscured by artifact from breathing motion. Symmetric dependent ground-glass opacities. Atelectasis suspected. No region of miguelina pulmonary consolidation. Pleural spaces: No pleural effusion or pneumothorax. Heart: Normal-sized heart. Lymph nodes: Shotty mediastinal and hilar lymph nodes. Bones/joints: Well corticated defect through the lateral aspect of the left 1st rib suspicious for chronic nonunion of an old fracture or possibly a developmental appearance. No acute fracture seen among the bones of the chest. Soft tissues: No gross soft tissue mass or fluid collection seen in the chest wall. IMPRESSION: No active disease is seen in the chest. PROCEDURE INFORMATION: Exam: CTA Abdomen and Pelvis With Contrast Exam date and time: 07/04/2021 12:31 AM Age: 25 years old Clinical indication: Other: Pleuritic right sided chest/abdomen pain TECHNIQUE: Imaging protocol: Computed tomographic angiography of the abdomen and pelvis with contrast material. 3D rendering (Not supervised by radiologist): MIP and/or 3D reconstructed images were created by the technologist. Contrast material: OMNI 350; Contrast volume: 100 ml; Contrast route: INTRAVENOUS (IV); COMPARISON: No relevant prior studies available. FINDINGS: Aorta: Normal caliber abdominal aorta. No aneurysmal dilatation or dissection. Celiac trunk and mesenteric arteries: Celiac artery, superior mesenteric artery, and inferior mesenteric artery widely patent. Renal arteries: Right renal artery widely patent. Left renal artery widely patent. Right iliac arteries: Right common iliac, internal iliac, and external iliac arteries widely patent. Left iliac arteries: Left common iliac, internal iliac, and external iliac arteries widely patent. Liver: Normal appearing liver. Gallbladder and bile ducts: Gallbladder partially collapsed. No calcified gallstones seen. No biliary dilatation. Pancreas: Normal appearing pancreas. Spleen: Normal appearing spleen. Adrenal glands: Normal appearing adrenal glands. Kidneys and ureters: Normal appearing kidneys. No hydronephrosis. No obstructing ureteral stones. Stomach and bowel: No oral contrast. Stomach moderately distended with ingested material. No small bowel dilatation to suggest obstruction. Moderate retained fecal material through the cecum, ascending colon, and transverse colon. Apparent mural thickening through collapsed well evacuated segments of the proximal sigmoid colon, distal sigmoid colon, and rectum. Artifact of incomplete distention? Segments of acute colitis? No evidence of focal acute diverticulitis. Appendix: Normal appendix. Intraperitoneal space: No gross ascites or free air. Lymph nodes: Scattered shotty mesenteric lymph nodes, nonspecific. Urinary bladder: Normal appearing urinary bladder. Reproductive: Normal-appearing prostate gland and seminal vesicles. Bones/joints: No acute fracture seen among the bones of the abdomen or pelvis. Soft tissues: No significant ventral or inguinal hernia. IMPRESSION: Apparent mural thickening through compartment collapsed well evacuated segments of the proximal sigmoid colon, distal sigmoid colon, and rectum. Artifact of incomplete distention or acute colitis/proctocolitis could have this appearance. Clinical correlation is recommended. Dictated and Authenticated by: Norbert Fields MD. Ordering:SHEMAR Silva MD
[2021-07-04 01:56] LABS: Bilirubin Negative (Negative); Blood Negative (Negative); Clarity Clear (Clear); Glucose Negative (Negative); Ketones Negative (Negative); Leukocyte Esterase Negative (Negative); Nitrite Negative (Negative); Specific Gravity 1.015 (1.005-1.025)
[2021-07-04] MEDS: Omnipaque 350 MG/ML 100 ML BTL IJ (02:04)
== END 2021-07-04 02:23 | disposition left against medical advice (07) ==
LOC: ER 02:49
PROVIDERS: Emergency Provider Emergency Medicine
DX: R07.9 Chest pain, unspecified (principal); R07.1 Chest pain on breathing; D72.829 Elevated white blood cell count, unspecified; R94.5 Abnormal results of liver function studies; Z53.29 Procedure and treatment not carried out because of patient's decision for other reasons; R10.11 Right upper quadrant pain; R06.02 Shortness of breath
CPT/HCPCS: 71275; 74177; 80053; 83690; 93005; 96365; 96375; 99285; 81003; 83735; 84484; 85025; 93010; 99284; J1885; J2405; J3475; J3490

== ENCOUNTER 2021-08-09 15:40 | Emergency (ER) | payer OTHER, MEDICAID, SELFPAY ==
[2021-08-09 15:45] VITALS: BP 134/53; PULSE 118; RESP 18; TEMP 37; O2SAT 96
--- NOTE | 2021-08-09 15:45 | DI.RAD_ITS ---
Exam(s) XR WRIST RT COMPLETE EXAM: XR WRIST RT COMPLETE CLINICAL HISTORY: s/p fall onto outstretched wrist, r/o fx. TECHNIQUE: 2D digital imaging was performed. COMPARISON: CR RT WRIST COMPLETE + NAVICULAR from 11/11/2017 FINDINGS: There is no evidence of acute fracture or dislocation. Again noted is evidence of prior scaphoid waist fracture. The scapholunate distance is again noted b e slightly wide but unchanged. There has been progressive narrowing of the lateral aspect of the rad iocarpal joint. No significant ulnar variance. Calcific density again noted distal to the ulnar sty loid which is not an acute fracture fragment. On the lateral view there is a corticated ossified den sity now evident which was not seen on the previous lateral view of 2018. This measures approximatel y 5 by 2.5 millimeters. It is corticated appearance implies that it is probably not an acute fractur e fragment. IMPRESSION: As above. No acute fracture evident DATA REPOSITORY: RADIATION DOSE DELIVERED:
--- NOTE | 2021-08-09 16:00 | ED.GENADUL_ITS ---
Discharge Plan Disposition Patient Disposition: HOME Condition: Stable Discharge Details Clinical Impression: Right wrist sprain Primary Care Provider: Elicia,Local ED Provider: Breonna Bates Home Meds and New Rx's Prescriptions: Continued methadone 10 mg/mL Concentrate 100 mg PO DAILY 0RF Discharge Instructions Instructions: Wrist Sprain (ED) Additional Instructions: Your wrist x-ray shows evidence of an old fracture and injury but no evidence of new or acute findings. You are being placed in a wrist splint to help with pain and support. Rest, ice, and elevate the affected area as much as possible. Alternate tylenol and motrin as needed and directed for pain. You have been placed on care management's list to arrange for a follow-up appointment with a primary care doctor in 1 week to establish care and for reevaluation and referral for repeat x-ray if your symptoms persist or worsen. Return immediately to the emergency department if you develop any worsening or new concerning symptoms. Referrals: Dash Hernandez MD [ [facility] STAFF PHYSICIAN] - Discharge Data Discharge Date/Time-TO BE ENTERED AT DEPARTURE: 08/09/21 17:15 Discharge Physician: Breonna Bates Medical Decision Making 25-year-old male who presents with right wrist pain after fall onto outstretched wrist when he moved out of the way when a car fell off the [place] at work. Mild edema and tenderness to palpation and pain with right dorsal lateral wrist. There is no obvious deformity. He has neurovascularly intact. No pain with range of motion at right shoulder or tenderness overlying right clavicle or shoulder. Patient referred for x-rays which notes evidence of previous injury and fracture but no acute findings. As patient has pain with range of motion and tenderness at the site, will place in a wrist splint. Patient does not have a PCP. He was placed on care management list to arrange for follow-up appointment with a primary care doctor to establish care and for referral for repeat x-ray in 1 week if pain persists or worsens. Patient was also given orthopedic follow-up information if needed. Usual and customary return precautions given prior to discharge. Medical Records Medical records reviewed: Yes I reviewed the patient's medical records. Imaging Data Radiologic Study: Radiologist's impression: XR WRIST RT COMPLETE CLINICAL HISTORY: ? s/p fall onto outstretched wrist, r/o fx. ? TECHNIQUE:? 2D digital imaging was performed. COMPARISON:? CR RT WRIST COMPLETE + NAVICULAR from 11/11/2017 FINDINGS: There is no evidence of acute fracture or dislocation. Again noted is evidence of prior scaphoid waist fracture.? The scapholunate distance is again noted be slightly wide but unchanged.? There has been progressive narrowing of the lateral aspect of the radiocarpal joint.? No significant ulnar variance.? Calcific density again noted distal to the ulnar styloid which is not an acute fracture fragment.? On the lateral view there is a corticated ossified density now evident which was not seen on the previous lateral view of 2018.? This measures approximately 5 by 2.5 millimeters.? It is corticated appearance implies that it is probably not an acute fracture fragment. IMPRESSION: As above.? No acute fracture evident HPI General Mode of arrival: ambulatory . Date/Time Provider Initiated Documentation: 08/09/21 15:42 . Limitations to Documentation: no limitations . Information obtained by: patient . HPI Narrative: Patient is a 25-year-old male who presents to the ED with complaint of right wrist pain after fall onto outstretched wrist prior to arrival. Patient states he was at work when a car he was working on fell off the [place] and to avoid dir ect impact he fell backwards onto his right wrist. He denies any direct hit of the car or ant[place] to his extremity. He was having some pain in his right shoulder but states this is now resolved and states his main area of pain is his right wrist. He states he has not taken any medication for pain. He denies any head injury. Related Data Home Medications Medication Instructions Recorded Confirmed methadone 10 mg/mL oral concentrate 100 mg PO DAILY 10/17/20 08/09/21 Allergies Allergy/AdvReac Type Severity Reaction Status Date / Time codeine Allergy Intermediate Unverified 08/09/21 15:50 General Stated Complaint: Orthopedic ADRIANA: 3 Review of Systems All systems reviewed & are unremarkable except as noted in HPI and below Constitutional Constitutional: Reports as per HPI, Denies chills and Denies fever(s) Eyes Eyes: Denies blurry vision ENT Ears, Nose, Mouth, and Throat: Denies dizziness, Denies sore throat and Denies throat swelling Cardiovascular Cardiovascular: Denies chest pain and Denies dyspnea Respiratory Respiratory: Denies cough and Denies dyspnea Gastrointestinal Gastrointestinal: Denies abdominal pain, Denies diarrhea and Denies vomiting Genitourinary Genitourinary: Denies hematuria and Denies dysuria Musculoskeletal Musculoskeletal: Denies back pain and Denies numbness Comments: R wrist pain, minimal R shoulder pain Integumentary/Breasts Skin/Breast: Denies lesions and Denies rash Neurologic Neurologic: Denies dizziness, Denies localized weakness and Denies numbness Allergic/Immunologic Allergic/Immunologic: Denies throat swelling PFSH All Active Problems (Updated 08/09/21 @ 16:55 by Breonna Bates DO) Cellulitis (Acute) Right wrist sprain (Acute) Social History Smoking/Tobacco Use Status: Never Smoking risk assessment performed?: Yes Alcohol Intake: never Drug use: Current Sobriety Do you feel safe at home: Yes Do you feel safe in your relationship?: Yes Exam Const General: cooperative, healthy appearing and no acute distress HENMT Head: normal to inspection Mouth: oral mucosae normal Eyes General: appearance normal, both eyes and all related structures Neck Neck: normal visual inspection Resp Effort & Inspection: normal respiratory effort and able to speak in complete sentences Cardio Rate: regular rate Skin General skin exam: no rashes or lesions noted Neuro General: patient alert, patient awake and patient oriented x3 Motor: muscle tone normal throughout Extrem Hand/finger images: 1. Mild edema and tenderness to palpation overlying right dorsal lateral wrist. There is no obvious deformity. Other: Right radial and ulnar pulses intact. Remainder of right upper extremity including clavicle, shoulder, upper arm, elbow and proximal forearm without tenderness or evidence of trauma. Psych Appearance: grossly normal Affect: normal affect Course Vital Signs Vital signs: Vital Signs Temperature 98.6 F 08/09/21 15:45 Pulse 118 H 08/09/21 15:45 Respiratory Rate 18 08/09/21 15:45 Blood Pressure 134/53 L 08/09/21 15:45 Pulse Oximetry 96 08/09/21 15:45 Temperature 98.6 F 08/09/21 15:45 Pulse 118 H 08/09/21 15:45 Respiratory Rate 18 08/09/21 15:45 Respiratory Effort Non-Labored 08/09/21 15:49 Blood Pressure 134/53 L 08/09/21 15:45 Blood Pressure Position Supine 08/09/21 15:45 Pulse Oximetry 96 08/09/21 15:45 Oxygen Delivery Method Room Air 08/09/21 15:45 Oxygen Flow Rate 0 08/09/21 15:45 Pain Level 8 08/09/21 15:51 Procedures Orthopedic Splinting/Casting Injury #1: Side: right Upper Extremity Injury Location: wrist Upper Extremity Immobilizer: aluminum form splint
[2021-08-09] MEDS: Ibuprofen 600 MG TAB PO (16:01)
--- NOTE | 2021-08-09 16:16 | NUR.NOTE ---
Nursing Note: Pt ambulatory to and from DI, no change in complaints, awaiting exam results.
--- NOTE | 2021-08-09 17:39 | NUR.NOTE ---
Dr. Jon requesting PCP establishment with repeat wrist xray in 1 wk. listed request on the care management page.
--- NOTE | 2021-08-10 15:14 | PDOC.ERCMACT ---
- If Service Date Differs Date of service: 08/10/21 Time of Service: 15:14 Care Management Activity Note Pedro Pablo is seen in the ED for a right wrist sprain. ED provider requests that CM arrange a follow up appointment with a primary care doctor. A review of his chart [facility] telephones Pedro Pablo to inquire who his PCP is. There is no answer, so a message is left asking that Pedro Pablo return the phone call.
== END 2021-08-09 17:15 | disposition home or self-care (01) ==
PROVIDERS: Emergency Provider Physician Assistant
DX: S63.591A Other specified sprain of right wrist, initial encounter (principal); W18.39XA Other fall on same level, initial encounter; Y99.0 Civilian activity done for income or pay
CPT/HCPCS: 29125; 99283; 73110

== ENCOUNTER 2021-09-13 19:44 | Emergency (ER) | payer OTHER, MEDICAID, SELFPAY ==
[2021-09-13] VITALS (12 sets, daily range): BP systolic 115–151; BP diastolic 68–90; PULSE 69–114; RESP 9–24; TEMP 36.7; O2SAT 95–100
--- NOTE | 2021-09-13 19:45 | DI.RAD_ITS ---
Exam(s) XR PORTABLE CHEST AP EXAM: XR PORTABLE CHEST AP CLINICAL HISTORY: chest pain TECHNIQUE: 2D digital imaging was performed of the chest. One image was obtained. An AP view was ob tained. COMPARISON: No exams were available for comparison FINDINGS: MEDIASTINUM: Normal. HEART: Normal. PULMONARY VASCULATURE: Normal. LUNGS: Clear. PLEURAL SPACE: No pleural effusion or pneumothorax. BONE:Within normal limits for the patient's age. OTHER FINDINGS:Normal. IMPRESSION: No acute pulmonary findings. DATA REPOSITORY: RADIATION DOSE DELIVERED:
--- NOTE | 2021-09-13 19:45 | RT.EKG_ITS ---
APPROVED REPORT Exam: Resting ECG Reason for Exam: chest pain Patient Location: E HR:105 bpm ECG Measurements Heart Rate 105 AXIS LA 176 P 58 QRSd 96 QRS 61 QT 322 T 12 QTc 426 Conclusion Sinus tachycardia...rate> 99. Sinus. Normal axis. No STEMI. I have reviewed and interpreted ECG and agree with software generated interpretation.
[2021-09-13 19:59] LABS: Abs Immature Grans 0.03 10^3/uL (0.0-0.06); Absolute Basophil Count 0.06 10^3/uL (0.0-0.2); Absolute Eosinophil Count 0.17 10^3/uL (0.0-0.7); Absolute Lymphocyte Count 2.83 10^3/uL (1.2-3.4); Absolute Neutrophil Count 6.76 10^3/uL (1.2-6.7); Basophils % 0.6; Eosinophils % 1.6; HCT 43.9 % (40.0-50.0); HGB 14.7 g/dL (13.5-17.5); Immature Grans % 0.3; Lymphocytes % 26.1; MCH 30.4 pg (27.0-33.0); MCHC 33.5 % (32.0-36.0); MCV 90.7 fL (80-95); MPV 11.3 fL (8.0-11.0); Neutrophils % 62.4; Nucleated RBC 0 %; Platelet Count 278 10^3/uL (130-400); RBC 4.84 10^6/uL (4.36-5.78); RDW 12.2 % (11.8-14.1); RDW-SD 40.1 fL; WBC 10.83 10^3/uL (4.4-10.8)
[2021-09-13 20:00] LABS: Absolute Monocyte Count 0.97 10^3/uL (0.1-0.8)
[2021-09-13] MEDS: Normal Saline 1,000 ML 125 ML IV (20:03)
[2021-09-13] MEDS: Aspirin 81 MG CHEW 324 MG CH (20:03)
--- NOTE | 2021-09-13 20:09 | W.ED.GENAD ---
Discharge Plan Disposition Patient Disposition: HOME Condition: Improving Discharge Details Clinical Impression: Chest pain, Cocaine use Primary Care Provider: EliciaLocal ED Provider: Barrington Arciniega Home Meds and New Rx's Prescriptions: Continued methadone 10 mg/mL Concentrate 100 mg PO DAILY 0RF Discharge Instructions Instructions: Chest Pain (ED), Cocaine Abuse (ED) Additional Instructions: Rapid cardiac rule out here in the ER was unremarkable, you are asymptomatic, and you have remained hemodynamically stable. Please stop using illicit drugs. Watch for new or worsening symptoms and return to the ER for any concerns. Please contact your primary care provider at the [facility] tomorrow to discuss your ER visit and need for outpatient reevaluation. Medical Decision Making This is a 25-year-old gentleman, currently takes methadone daily, reports smoking crack cocaine this morning, presenting to the ER reporting chest pressure, symptoms radiated to his left shoulder-neck, nausea that began approximately 1 hour ago. He reports he had a fleeting sensation of discomfort between his shoulder blades. He looked this up online, was concerned he could be having a heart attack, and came to the ER for evaluation. He reports that he became scared, hyperventilated, and anxious but upon arrival is feeling much improved, is calming down, denies any chest pressure whatsoever. Denies any history of cardiac disease. He does appear slightly anxious, and his vital signs upon arrival reveal mild hypertension, tachycardia, he is afebrile, satting 99% on room air. During my examination, his blood pressure is normal, pulse in the 80s, and he appears well, nontoxic. He reports now that he is asymptomatic. No given his presentation low suspicion for ACS, PE, etc. More likely cocaine induced, subsequent anxiety. Plan is to provide a single dose of full dose aspirin, obtain a cardiac work-up including a delta troponin and D-dimer. Patient is agreeable to this plan and has no additional questions or concerns Initial laboratory values are unremarkable for any obvious emergent process. Initial troponin less than 50. Drug screen positive for methadone and cocaine. Chest x-ray unremarkable. Mild nonspecific leukocytosis of 10.83. Potassium 3.3, will supplement with 40 p.o. Discussed initial work-up. He remains asymptomatic and hemodynamically stable. Awaiting D-dimer. Patient is agreeable to awaiting delta troponin. D-dimer is normal at 412. Will not pursue CTA of the chest. Patient remains hemodynamically stable and asymptomatic. He is agreeable to awaiting a delta troponin. Delta troponin drawn at least 3-hour from onset of symptoms. Repeat troponin remains less than 50. Patient remains asymptomatic and hemodynamically stable. Patient is requesting to be discharged home. Strict discharge and return precautions were provided. This documentation was generated using [employer] system, please disregard any oddities of phrase or misspellings. Medical Records Medical records reviewed: Yes I reviewed the patient's medical records. Imaging Data Radiologic Study: Attestation: I personally reviewed and interpreted this imaging study as follows: Imaging: X-Ray Radiologist's impression: PROCEDURE INFORMATION: Exam: XR Chest Exam date and time: 09/13/2021 7:59 PM Age: 25 years old Clinical indication: Pain; Chest pressure TECHNIQUE: Imaging protocol: XR of the chest. Views: 1 view. COMPARISON: CT CHEST PE ABD PELVIS W 07/04/2021 12:46 AM FINDINGS: Lungs: The lungs are clear. There is no pulmonary vascular congestion. Pleural spaces: There are no pleural effusions present. There is no evidence of pneumothorax. Heart/Mediastinum: The cardiomediastinal silhouette is within normal limits. Bones/joints: Unremarkable. IMPRESSION: No active cardiopulmonary disease identified. Lab Data Lab results reviewed: Yes I reviewed the patient's lab results. Labs: Laboratory Tests Range/Units 09/13/21 09/13/21 09/13/21 19:53 19:53 20:44 WBC (4.4-10.8) 10^3/uL 10.83 H RBC (4.36-5.78) 10^6/uL 4.84 Hgb (13.5-17.5) g/dL 14.7 Hct (40.0-50.0) % 43.9 MCV (80-95) fL 90.7 MCH (27.0-33.0) pg 30.4 MCHC (32.0-36.0) % 33.5 RDW (11.8-14.1) % 12.2 Plt Count (130-400) 10^3/uL 278 MPV (8.0-11.0) fL 11.3 H Immature Gran % 0.3 Neutrophils % 62.4 Lymphocytes % 26.1 Monocytes % 9.0 Eosinophils % 1.6 Basophils % 0.6 Nucleated RBC % % 0 Absolute Neutrophils (1.2-6.7) 10^3/uL 6.76 H Absolute Lymphocytes (1.2-3.4) 10^3/uL 2.83 Absolute Monocytes (0.1-0.8) 10^3/uL 0.97 H Absolute Eosinophils (0.0-0.7) 10^3/uL 0.17 Absolute Basophils (0.0-0.2) 10^3/uL 0.06 PT (9.3-11.0) sec INR (0.9-1.1) APTT (21.0-27.5) sec D-Dimer (<500) ng/mlFEU Sodium (136-145) mmol/L 139 Potassium (3.5-5.1) mmol/L 3.3 L Chloride (98-107) mmol/L 104 Carbon Dioxide (21.0-32.0) mmol/L 26.5 Anion Gap (3-11) mmol/L 8.5 BUN (7-18) mg/dL 10 Creatinine (0.70-1.30) mg/dL 1.1 Estimated GFR/1.73 m2 (mL/min/1.73m2) >= 60.00 Glucose (74-106) mg/dL 118 H Calcium (8.5-10.1) mg/dL 11.3 H Magnesium (1.8-2.4) mg/dL 2.1 Total Bilirubin (0.2-1.0) mg/dL 0.4 AST (15-37) U/L 16 ALT (16-63) U/L 27 Alkaline Phosphatase (46-116) U/L 138 H Troponin I (<or=60) ng/L < 50 Total Protein (6.4-8.2) g/dL 8.2 Albumin (3.4-5.0) g/dL 4.3 Urine Opiates Screen (Negative) Negative Urine Methadone Screen (Negative) Positive A Ur Barbiturates Screen (Negative) Negative Ur Tricyclics Screen (Negative) Negative Ur Amphetamines Screen (Negative) Negative U Benzodiazepines Scrn (Negative) Negative Urine Cocaine Screen (Negative) Positive A Ur THC Screen (Negative) Negative Range/Units 09/13/21 09/13/21 20:50 22:00 WBC (4.4-10.8) 10^3/uL RBC (4.36-5.78) 10^6/uL Hgb (13.5-17.5) g/dL Hct (40.0-50.0) % MCV (80-95) fL MCH (27.0-33.0) pg MCHC (32.0-36.0) % RDW (11.8-14.1) % Plt Count (130-400) 10^3/uL MPV (8.0-11.0) fL Immature Gran % Neutrophils % Lymphocytes % Monocytes % Eosinophils % Basophils % Nucleated RBC % % Absolute Neutrophils (1.2-6.7) 10^3/uL Absolute Lymphocytes (1.2-3.4) 10^3/uL Absolute Monocytes (0.1-0.8) 10^3/uL Absolute Eosinophils (0.0-0.7) 10^3/uL Absolute Basophils (0.0-0.2) 10^3/uL PT (9.3-11.0) sec 10.9 INR (0.9-1.1) 1.1 APTT (21.0-27.5) sec 24.2 D-Dimer (<500) ng/mlFEU 412 Sodium (136-145) mmol/L Potassium (3.5-5.1) mmol/L Chloride (98-107) mmol/L Carbon Dioxide (21.0-32.0) mmol/L Anion Gap (3-11) mmol/L BUN (7-18) mg/dL Creatinine (0.70-1.30) mg/dL Estimated GFR/1.73 m2 (mL/min/1.73m2) Glucose (74-106) mg/dL Calcium (8.5-10.1) mg/dL Magnesium (1.8-2.4) mg/dL Total Bilirubin (0.2-1.0) mg/dL AST (15-37) U/L ALT (16-63) U/L Alkaline Phosphatase (46-116) U/L Troponin I (<or=60) ng/L < 50 Total Protein (6.4-8.2) g/dL Albumin (3.4-5.0) g/dL Urine Opiates Screen (Negative) Urine Methadone Screen (Negative) Ur Barbiturates Screen (Negative) Ur Tricyclics Screen (Negative) Ur Amphetamines Screen (Negative) U Benzodiazepines Scrn (Negative) Urine Cocaine Screen (Negative) Ur THC Screen (Negative) ECG Data Attestation: I personally reviewed and interpreted this ECG (s) as follows: Interpretation: Please see official report by Dr. Quiles. Sinus tachycardia, ventricular rate of 105, no STEMI. HPI General Mode of arrival: ambulatory. Date/Time Provider Initiated Documentation: 09/13/21 19:45. Limitations to Documentation: no limitations. Information obtained by: patient. HPI Narrative: This is a 25-year-old gentleman, reports that he takes methadone daily, smoked crack cocaine this morning, last use was 3 days ago, presenting to the ER for chest pressure. Patient reports that roughly 1 hour ago he developed some anterior chest pressure that seem to radiate up into his left neck and shoulder. He states that he looked up his symptoms online and was concerned that he may be having a heart attack. He states that this caused him to become scared and anxious, began hyperventilating, and subsequently came to the ER for further evaluation. He denies any significant cardiac family history. Patient denies smoking cigarettes and denies any other drug use except for cocaine. He denies recent illness or trauma. He tells me that upon arrival he is asymptomatic. He denies headache, fever, visual changes, current neck pain, chest pain, shortness of breath, abdominal pain, nausea, vomiting, change in bowel or bladder function, numbness, tingling, weakness. He reports that when his symptoms were present he felt a pressure but no true pain, has a hard time stating just how severe the pressure was. Also reports having felt mild nausea but no vomiting. He did not take any medications prior to arrival. Patient reports that he has a counselor for his ongoing drug problem and does not want any additional help this evening. Related Data Home Medications Medication Instructions Recorded Confirmed methadone 10 mg/mL oral concentrate 100 mg PO DAILY 10/17/20 09/13/21 Allergies Allergy/AdvReac Type Severity Reaction Status Date / Time codeine Allergy Intermediate Unverified 09/13/21 19:50 General Stated Complaint: Chest Pain ADRIANA: 2 Review of Systems Constitutional Constitutional: Denies fatigue, Denies fever(s), Denies headache(s) and Denies weakness Eyes Eyes: Denies change in vision ENT Ears, Nose, Mouth, and Throat: Denies headache(s) and Denies neck pain Cardiovascular Cardiovascular: Reports chest pain (Pressure) and Denies dyspnea Respiratory Respiratory: Denies cough and Denies dyspnea Gastrointestinal Gastrointestinal: Denies abdominal pain, Reports nausea and Denies vomiting Genitourinary Genitourinary: Denies dysuria Musculoskeletal Musculoskeletal: Reports back pain (Dull ache between his shoulder blades, resolved), Denies neck pain, Denies numbness and Denies tingling Integumentary/Breasts Skin/Breast: Denies rash Neurologic Neurologic: Denies headache(s), Denies numbness, Denies tingling and Denies weakness Psychiatric Psychiatric: Reports anxiety Endocrine Endocrine: Denies fatigue Hematologic/Lymphatic Hematologic/Lymphatic: Denies easy bleeding and Denies easy bruising PFSH All Active Problems Cellulitis (Acute) Chest pain (Acute) Cocaine use (Acute) Social History Smoking/Tobacco Use Status: Never Smoking risk assessment performed?: Yes Alcohol Intake: never Drug use: Rarely Substance use type: crack/cocaine Details: used cocaine this morning - usual amount Do you feel safe at home: Yes Do you feel safe in your relationship?: Yes Exam Const General: cooperative, healthy appearing, comfortable, no acute distress and anxious Orientation: alert and awake HENMT Head: normal to inspection, normocephalic and atraumatic Face and sinus: normal facial exam Mouth: moist mucous membranes Eyes General: appearance normal, both eyes and all related structures Conjunctivae: conjunctivae normal Neck Neck: normal visual inspection, full ROM, no meningeal signs, trachea midline, supple and nontender Chest Chest: normal inspection of the chest and normal palpation of entire chest wall Resp Effort & Inspection: normal respiratory effort and able to speak in complete sentences Auscultation: clear to auscultation bilaterally Cardio Rate: regular rate Rhythm: regular rhythm GI Inspection: normal to inspection Palpation: soft, not firm, no guarding, no pulsatile masses and nontender Auscultation: normal bowel sounds Back/Spine/Pelvis Back: No back tenderness Skin General skin exam: no rashes or lesions noted Neuro General: patient alert, patient awake, patient oriented x3, moves all extremities and no focal motor deficits Cognition: normal cognition Speech: speech normal Gait: normal gait Motor: muscle tone normal throughout Sensory Exam: no sensory deficits noted Extrem General: normal to inspection, full ROM, capillary refill normal, no pedal edema and no calf tenderness Psych Appearance: grossly normal Mental Status: mental status grossly normal Course Vital Signs Vital signs: Vital Signs Temperature 36.7 C 09/13/21 19:46 Pulse 106 H 09/13/21 19:46 Respiratory Rate 10 L 09/13/21 19:46 Blood Pressure 151/89 H 09/13/21 19:46 Pulse Oximetry 99 09/13/21 19:46 Temperature 36.7 C 09/13/21 19:46 Temperature Source Skin 09/13/21 19:46 Pulse 106 H 09/13/21 19:46 Respiratory Rate 10 L 09/13/21 19:46 Respiratory Effort 09/13/21 20:03 Respiratory Depth Normal 09/13/21 20:03 Respiratory Pattern Normal 09/13/21 20:03 Blood Pressure 151/89 H 09/13/21 19:46 Pulse Oximetry 99 09/13/21 19:46 Oxygen Delivery Method Room Air 09/13/21 19:46 Oxygen Flow Rate 0 09/13/21 19:46 Pain Level 6 09/13/21 19:46 Lab/Test Results Lab/Test Results: Laboratory Tests Range/Units 09/13/21 19:53 WBC (4.4-10.8) 10^3/uL 10.83 H RBC (4.36-5.78) 10^6/uL 4.84 Hgb (13.5-17.5) g/dL 14.7 Hct (40.0-50.0) % 43.9 MCV (80-95) fL 90.7 MCH (27.0-33.0) pg 30.4 MCHC (32.0-36.0) % 33.5 RDW (11.8-14.1) % 12.2 Plt Count (130-400) 10^3/uL 278 MPV (8.0-11.0) fL 11.3 H Immature Gran % 0.3 Neutrophils % 62.4 Lymphocytes % 26.1 Monocytes % 9.0 Eosinophils % 1.6 Basophils % 0.6 Nucleated RBC % % 0 Absolute Neutrophils (1.2-6.7) 10^3/uL 6.76 H Absolute Lymphocytes (1.2-3.4) 10^3/uL 2.83 Absolute Monocytes (0.1-0.8) 10^3/uL 0.97 H Absolute Eosinophils (0.0-0.7) 10^3/uL 0.17 Absolute Basophils (0.0-0.2) 10^3/uL 0.06
[2021-09-13 20:15] LABS: ALT 27 U/L (16-63); AST 16 U/L (15-37); Albumin 4.3 g/dL (3.4-5.0); Alkaline Phosphatase 138 U/L (46-116); Anion Gap 8.5 mmol/L (3-11); BUN 10 mg/dL (7-18); Bilirubin, Total 0.4 mg/dL (0.2-1.0); CO2 26.5 mmol/L (21.0-32.0); CREATININE 1.1 mg/dL (0.70-1.30); Calcium 11.3 mg/dL (8.5-10.1); Chloride 104 mmol/L (98-107); Glucose 118 mg/dL (74-106); Magnesium 2.1 mg/dL (1.8-2.4); Potassium 3.3 mmol/L (3.5-5.1); Sodium 139 mmol/L (136-145); Total Protein 8.2 g/dL (6.4-8.2); Troponin I < 50 ng/L (<or=60)
[2021-09-13] MEDS: Potassium Chloride 20 MEQ TABCR 40 MEQ PO (20:49)
--- NOTE | 2021-09-13 20:49 | DI.VRAD_ITS ---
PROCEDURE INFORMATION: Exam: XR Chest Exam date and time: 09/13/2021 7:59 PM Age: 25 years old Clinical indication: Pain; Chest pressure TECHNIQUE: Imaging protocol: XR of the chest. Views: 1 view. COMPARISON: CT CHEST PE ABD PELVIS W 07/04/2021 12:46 AM FINDINGS: Lungs: The lungs are clear. There is no pulmonary vascular congestion. Pleural spaces: There are no pleural effusions present. There is no evidence of pneumothorax. Heart/Mediastinum: The cardiomediastinal silhouette is within normal limits. Bones/joints: Unremarkable. IMPRESSION: No active cardiopulmonary disease identified. Dictated and Authenticated by: Pedro Wetzel MD. Ordering:NILE Ferris MD
[2021-09-13 21:01] LABS: *AMPHETAMINES SCREEN URINE Negative (Negative); *BARBITURATES SCREEN URINE Negative (Negative); *BENZODIAZEPINES SCREEN URINE Negative (Negative); Cannabinoids THC Negative (Negative); Cocaine Screen,Urine Positive (Negative); METHADONE URINE SCREEN Positive (Negative); OPIATES URINE SCREEN Negative (Negative)
[2021-09-13 21:02] LABS: Tricyclic Antidepressants Negative (Negative)
[2021-09-13 21:22] LABS: INR 1.1 (0.9-1.1); PTT Activated 24.2 sec (21.0-27.5); Prothrombin Time 10.9 sec (9.3-11.0)
[2021-09-13 21:39] LABS: D-Dimer 412 ng/mlFEU (<500)
[2021-09-13 22:25] LABS: Troponin I < 50 ng/L (<or=60)
== END 2021-09-13 23:13 | disposition home or self-care (01) ==
PROVIDERS: Emergency Provider Physician Assistant
DX: R07.9 Chest pain, unspecified (principal); F14.10 Cocaine abuse, uncomplicated; Z79.899 Other long term (current) drug therapy; E87.6 Hypokalemia
CPT/HCPCS: 80053; 80307; 93005; 99284; 71045; 83735; 84484; 85025; 85379; 85610; 85730; 93010

== ENCOUNTER 2021-09-14 17:50 | Emergency (ER) | payer MEDICAID, SELFPAY ==
[2021-09-14] VITALS (32 sets, daily range): BP systolic 99–122; BP diastolic 53–73; PULSE 48–79; RESP 7–17; TEMP 36.5–36.6; O2SAT 94–99
--- NOTE | 2021-09-14 17:45 | RT.EKG_ITS ---
APPROVED REPORT Exam: Resting ECG Reason for Exam: chest pain Patient Location: E HR:64 bpm ECG Measurements Heart Rate 64 AXIS MO 177 P 32 QRSd 91 QRS 70 QT 395 T 25 QTc 408 Conclusion Sinus rhythm...normal P axis, V-rate 60- 99
[2021-09-14 18:20] LABS: Abs Immature Grans 0.02 10^3/uL (0.0-0.06); Absolute Basophil Count 0.04 10^3/uL (0.0-0.2); Absolute Eosinophil Count 0.26 10^3/uL (0.0-0.7); Absolute Lymphocyte Count 1.95 10^3/uL (1.2-3.4); Absolute Monocyte Count 0.71 10^3/uL (0.1-0.8); Absolute Neutrophil Count 4.86 10^3/uL (1.2-6.7); Basophils % 0.5; Eosinophils % 3.3; HCT 40.4 % (40.0-50.0); HGB 13.3 g/dL (13.5-17.5); Immature Grans % 0.3; Lymphocytes % 24.9; MCHC 32.9 % (32.0-36.0); MCV 91.2 fL (80-95); MPV 11.4 fL (8.0-11.0); Monocytes % 9.1; Neutrophils % 61.9; Nucleated RBC 0 %; Platelet Count 224 10^3/uL (130-400); RBC 4.43 10^6/uL (4.36-5.78); RDW 12.5 % (11.8-14.1); RDW-SD 41.3 fL; WBC 7.84 10^3/uL (4.4-10.8)
[2021-09-14 18:42] LABS: ALT 24 U/L (16-63); AST 14 U/L (15-37); Albumin 3.7 g/dL (3.4-5.0); Alkaline Phosphatase 118 U/L (46-116); Anion Gap 7.2 mmol/L (3-11); BUN 10 mg/dL (7-18); Bilirubin, Total 0.3 mg/dL (0.2-1.0); CO2 26.8 mmol/L (21.0-32.0); Calcium 10.8 mg/dL (8.5-10.1); Chloride 106 mmol/L (98-107); Glucose 119 mg/dL (74-106); Potassium 4.1 mmol/L (3.5-5.1); Sodium 140 mmol/L (136-145); Total Protein 7.3 g/dL (6.4-8.2); Troponin I < 50 ng/L (<or=60)
--- NOTE | 2021-09-14 19:17 | ED.GENADUL_ITS ---
Discharge Plan Disposition Patient Disposition: HOME Discharge Details Chief Complaint: Chest Pain Clinical Impression: Chest pain Primary Care Provider: Elicia,Local ED Provider: Lester Bundy Home Meds and New Rx's Prescriptions: No Action methadone 10 mg/mL Concentrate 100 mg PO DAILY 0RF Discharge Instructions Instructions: Against Medical Advice (ED) Additional Instructions: I recommend you have a stress test done as soon as possible. Please follow-up with your primary care physician as soon as possible. Return to the emergency department at any time for further work-up as recommended. Medical Decision Making 1923 --25-year-old male here with intermittent chest discomfort started yesterday after smoking cocaine. Patient was seen here yesterday and had negative work-up including 2 - troponins and negative D-dimer and was discharged home. Patient is medically stable. No pain at this time. EKG was reviewed and interpreted by me: Please see report, sinus rhythm, 64 bpm, no STEMI. Initial labs reviewed and troponin normal. 2044 --initial troponin negative. Plan for delta troponin and continued monitoring. Patient is agreeable to having a second troponin drawn early but will not wait for results or allow for continued monitoring. Patient notes pain completely resolved and has had no pain since he has been here. I had a discussion with the patient about my diagnostic/treatment plan. Patient declines plan and wishes to leave against medical advise. I reiterated my concerns to the patient and explained the risks of leaving prior to completion of workup and treatment. I specifically emphasized the possibility of life- threatening or lifestyle modifying disease that would not be appropriately tr eated if they leave. Patient verbalized understanding of my concerns and the potential for life threatening or lifestyle modifying disease. Patient has capacity to make informed decision. I again explained my concerns and urged the patient to stay for treatment as outlined. Patient continued to refuse. I then discussed potential less ideal alternatives to diagnostic/treatment plan as outlines and patient refused. I encouraged the patient follow-up with primary care physician ERNESTINE or return to the Emergency Department at any time for further treatment. Medical Records Medical records reviewed: Yes I reviewed the patient's medical records. Lab Data Lab results reviewed: Yes I reviewed the patient's lab results. HPI General Mode of arrival: ambulatory . Date/Time Provider Initiated Documentation: 09/14/21 17:55 . Limitations to Documentation: no limitations . Information obtained by: patient . HPI Narrative: 25-year-old male presents with chief complaint of chest discomfort. Patient was seen here yesterday with tachycardia and chest discomfort after smoking cocaine. Patient had negative diagnostic work-up including initial troponin and subsequent delta troponin as well as D-dimer and x-ray. Symptoms resolved and he was discharged home. He notes that today he has had intermittent chest discomfort described as heaviness. He specifically notes that he has been thinking about his chest and worrying and subsequently developed mild heaviness. Discomfort does radiate into his left shoulder. He denies associated shortness of breath. No nausea vomiting. No diaphoresis. He is not used any illicit substances since discharge yesterday. Related Data Home Medications Medication Instructions Recorded Confirmed methadone 10 mg/mL oral concentrate 100 mg PO DAILY 10/17/20 09/14/21 Allergies Allergy/AdvReac Type Severity Reaction Status Date / Time codeine Allergy Intermediate Unverified 09/14/21 18:11 General Stated Complaint: Chest Pain ADRIANA: 2 Review of Systems All systems reviewed & are unremarkable except as noted in HPI and below Constitutional Constitutional: Denies fever(s) Cardiovascular Cardiovascular: Reports as per HPI PFSH All Active Problems (Updated 09/14/21 @ 20:51 by Lester Bundy MD) Cellulitis (Acute) Chest pain (Acute) Cocaine use (Acute) Chest pain (Acute) Social History Smoking/Tobacco Use Status: Never Smoking risk assessment performed?: Yes Alcohol Intake: never Drug use: Rarely Substance use type: crack/cocaine Details: used cocaine yesterday morning Do you feel safe at home: Yes Do you feel safe in your relationship?: Yes Exam Const General: cooperative and no acute distress HENMT Mouth: moist mucous membranes Eyes Conjunctivae: normal conjunctivae Sclera: normal sclerae EOM: EOM intact bilaterally Neck Neck: trachea midline and supple Resp Auscultation: clear to auscultation bilaterally, no rales, no rhonchi and no wheezes Cardio Rate: regular rate and not tachycardic Rhythm: regular rhythm Heart Sounds: S1 normal, S2 normal, no gallops, no murmurs and no rubs GI Palpation: soft, not firm, no guarding, no masses, not rigid and nontender Skin General skin exam: no rashes or lesions noted Neuro General: patient alert, patient awake, patient oriented x3 and tone normal Extrem General: no calf tenderness and no edema Psych Appearance: grossly normal Mental Status: mental status grossly normal Course Vital Signs Vital signs: Vital Signs Pulse Oximetry 95 09/14/21 18:02 Temperature 36.6 C 09/14/21 18:06 Temperature Source Skin 09/14/21 18:06 Pulse 64 09/14/21 18:16 Pulse 71 09/14/21 18:20 Respiratory Rate 16 09/14/21 18:20 Respiratory Effort 09/14/21 18:15 Respiratory Depth Normal 09/14/21 18:15 Respiratory Pattern Normal 09/14/21 18:15 Blood Pressure 113/73 09/14/21 18:16 Blood Pressure Mean 81 09/14/21 18:16 Pulse Oximetry 95 09/14/21 18:20 Oxygen Delivery Method Room Air 09/14/21 18:06 Oxygen Flow Rate 0 09/14/21 18:06 Pain Level 5 09/14/21 18:06 Lab/Test Results Lab/Test Results: Laboratory Tests Range/Units 09/14/21 09/14/21 18:13 18:13 WBC (4.4-10.8) 10^3/uL 7.84 RBC (4.36-5.78) 10^6/uL 4.43 Hgb (13.5-17.5) g/dL 13.3 L Hct (40.0-50.0) % 40.4 MCV (80-95) fL 91.2 MCH (27.0-33.0) pg 30.0 MCHC (32.0-36.0) % 32.9 RDW (11.8-14.1) % 12.5 Plt Count (130-400) 10^3/uL 224 MPV (8.0-11.0) fL 11.4 H Immature Gran % 0.3 Neutrophils % 61.9 Lymphocytes % 24.9 Monocytes % 9.1 Eosinophils % 3.3 Basophils % 0.5 Nucleated RBC % % 0 Absolute Neutrophils (1.2-6.7) 10^3/uL 4.86 Absolute Lymphocytes (1.2-3.4) 10^3/uL 1.95 Absolute Monocytes (0.1-0.8) 10^3/uL 0.71 Absolute Eosinophils (0.0-0.7) 10^3/uL 0.26 Absolute Basophils (0.0-0.2) 10^3/uL 0.04 Sodium (136-145) mmol/L 140 Potassium (3.5-5.1) mmol/L 4.1 D Chloride (98-107) mmol/L 106 Carbon Dioxide (21.0-32.0) mmol/L 26.8 Anion Gap (3-11) mmol/L 7.2 BUN (7-18) mg/dL 10 Creatinine (0.70-1.30) mg/dL 1.0 Estimated GFR/1.73 m2 (mL/min/1.73m2) >= 60.00 Glucose (74-106) mg/dL 119 H Calcium (8.5-10.1) mg/dL 10.8 H Total Bilirubin (0.2-1.0) mg/dL 0.3 AST (15-37) U/L 14 L ALT (16-63) U/L 24 Alkaline Phosphatase (46-116) U/L 118 H Troponin I (<or=60) ng/L < 50 Total Protein (6.4-8.2) g/dL 7.3 Albumin (3.4-5.0) g/dL 3.7
[2021-09-14 21:12] LABS: Troponin I < 50 ng/L (<or=60)
== END 2021-09-14 21:10 | disposition home or self-care (01) ==
PROVIDERS: Emergency Provider Student in an Organized Health Care Education/Training Program
DX: R07.9 Chest pain, unspecified (principal); F14.988 Cocaine use, unspecified with other cocaine-induced disorder; Z53.29 Procedure and treatment not carried out because of patient's decision for other reasons
CPT/HCPCS: 36415; 80053; 93005; 99284; 84484; 85025; 93010

== ENCOUNTER 2021-09-19 10:32 | Emergency (ER) | payer MEDICAID, SELFPAY ==
--- NOTE | 2021-09-19 10:30 | RT.EKG_ITS ---
APPROVED REPORT Exam: Resting ECG Reason for Exam: Patient Location: E HR:98 bpm ECG Measurements Heart Rate 98 AXIS CA 173 P 63 QRSd 92 QRS 71 QT 333 T 11 QTc 427 Conclusion Sinus rhythm...normal P axis, V-rate 60- 99
[2021-09-19 10:36] VITALS: BP 127/78; PULSE 89; RESP 18; TEMP 36.5; O2SAT 98
--- NOTE | 2021-09-19 10:45 | DI.RAD_ITS ---
Exam(s) XR CHEST 2V PA LATERAL EXAM: XR CHEST 2V PA LATERAL CLINICAL HISTORY: shortness of breath. TECHNIQUE: 2D digital imaging was performed. COMPARISON: CR,XR XR PORTABLE CHEST AP from 09/13/2021 FINDINGS: 2 views: Heart size is normal. The mediastinum is not widened. Lungs are clear. No infiltrates nor pleural effusions. IMPRESSION: No acute pulmonary findings. DATA REPOSITORY: RADIATION DOSE DELIVERED:
[2021-09-19 10:46] VITALS: BP 125/79; PULSE 101; O2SAT 99
[2021-09-19 12:13] LABS: Abs Immature Grans 0.05 10^3/uL (0.0-0.06); Absolute Basophil Count 0.03 10^3/uL (0.0-0.2); Absolute Eosinophil Count 0.08 10^3/uL (0.0-0.7); Absolute Lymphocyte Count 1.16 10^3/uL (1.2-3.4); Absolute Monocyte Count 0.89 10^3/uL (0.1-0.8); Basophils % 0.2; Eosinophils % 0.6; HCT 41.9 % (40.0-50.0); HGB 13.9 g/dL (13.5-17.5); Immature Grans % 0.4; Lymphocytes % 9.2; MCH 30.1 pg (27.0-33.0); MCHC 33.2 % (32.0-36.0); MCV 90.7 fL (80-95); MPV 11.1 fL (8.0-11.0); Monocytes % 7.1; Neutrophils % 82.5; Nucleated RBC 0 %; Platelet Count 256 10^3/uL (130-400); RBC 4.62 10^6/uL (4.36-5.78); RDW 12.1 % (11.8-14.1)
[2021-09-19] MEDS: Ondansetron O.D.T. 4 MG TABEF PO (12:17)
[2021-09-19 12:32] LABS: ALT 21 U/L (16-63); AST 12 U/L (15-37); Albumin 3.9 g/dL (3.4-5.0); Alkaline Phosphatase 129 U/L (46-116); Anion Gap 5.8 mmol/L (3-11); BUN 13 mg/dL (7-18); Bilirubin, Total 0.4 mg/dL (0.2-1.0); CO2 30.2 mmol/L (21.0-32.0); CREATININE 0.8 mg/dL (0.70-1.30); Calcium 11.2 mg/dL (8.5-10.1); Chloride 102 mmol/L (98-107); Glucose 125 mg/dL (74-106); NT-proBNP 30 pg/mL (<300); Potassium 4.5 mmol/L (3.5-5.1); Sodium 138 mmol/L (136-145); Total Protein 7.6 g/dL (6.4-8.2)
--- NOTE | 2021-09-19 12:51 | ED.GENADUL_ITS ---
Discharge Plan Disposition Patient Disposition: HOME Condition: Good Discharge Details Clinical Impression: Chest pain Primary Care Provider: Elicia,Local ED Provider: Luh Tsai Home Meds and New Rx's Prescriptions: New ondansetron 4 mg tablet,disintegrating 4 mg PO TID-QID PRN4 Days Qty: 10 0RF Continued methadone 10 mg/mL Concentrate 100 mg PO DAILY 0RF Discharge Instructions Additional Instructions: Please follow-up with Dr. Sidhu Follow-up with Dr. Skip Paniagua as needed for nausea and vomiting Refrain from any drug use Follow-up for your stress test and return earlier should you have new or worsening complaint Referrals: Jose C Sidhu MD [ NON-[facility] STAFF PHYSICIAN] - Discharge Data Discharge Date/Time-TO BE ENTERED AT DEPARTURE: 09/19/21 13:08 Medical Decision Making Patient appears well, this is his third visit for similar symptoms, I did review his prior examination and diagnosed test, he said to know but negative x-rays and negative D-dimer, to negative He has no evidence of endocarditis or myocarditis clinically I also considered cocaine induced cardiomyopathy, however I do not see any signs or symptoms consistent with this Patient was ambulated around the emergency department and did not exhibit any signs or symptoms of dyspnea His EKG does not show acute abnormality Troponin is negative today Chest x-ray does not show any evidence of cardiac enlargement Given his persistent symptoms, he was scheduled for outpatient stress test and care management follow-up this with his PCP, he believes he has an appointment scheduled with Dr. Sidhu He is feeling symptomatically improved from the nausea standpoint and he will be discharged home with Zofran, several tabs given QTC prolongation rest as he is also taking methadone He is encouraged to refrain from any sort of illicit drug use and made aware that this may exacerbate his symptoms dramatically Given the threshold to return should he have new or worsening complaints and I see no clear indication for admission to the hospital at this time Vitals reviewed on several occasions with stable Patient alert, oriented, decisional capacity Medical Records Medical records reviewed: Yes I reviewed the patient's medical records. Lab Data Lab results reviewed: Yes I reviewed the patient's lab results. ECG Data Prior ECG tracings: available for review HPI General Date/Time Provider Initiated Documentation: 09/19/21 10:45 . HPI Narrative: 25-year-old gentleman with history of cocaine and methadone use presents with repor of ongoing shortness of breath and nausea and vomiting which started this morning. Has not followed up with PCP. Denies any chest discomfort. Has not used cocaine since Friday. Denies any pleuritic component to her symptoms. Denies any peripheral edema. Denies any strength or sensation changes distally. Denies any additional complaints at this time. Denies prior history of pulmonary embolism. Denies any history of IV drug abuse. Related Data Home Medications Medication Instructions Recorded Confirmed methadone 10 mg/mL oral concentrate 100 mg PO DAILY 10/17/20 09/19/21 ondansetron 4 mg disintegrating 4 mg PO TID-QID PRN 4 Days #10 tab 09/19/21 tablet Previous Rx's Medication Instructions Recorded ondansetron 4 mg disintegrating 4 mg PO TID-QID PRN 4 Days #10 tab 09/19/21 tablet Allergies Allergy/AdvReac Type Severity Reaction Status Date / Time codeine Allergy Intermediate Unverified 09/19/21 10:40 General Stated Complaint: Chest Pain ADRIANA: 2 Review of Systems All systems reviewed & are unremarkable except as noted in HPI and below PFSH All Active Problems (Updated 09/19/21 @ 13:01 by ANDREW Arriaga) Cellulitis (Acute) Chest pain (Acute) Cocaine use (Acute) Chest pain (Acute) Social History Smoking/Tobacco Use Status: Never Smoking risk assessment performed?: Yes Alcohol Intake: never Drug use: Rarely Substance use type: crack/cocaine Details: used cocaine friday Do you feel safe at home: Yes Do you feel safe in your relationship?: Yes Exam Const General: cooperative, comfortable and no acute distress Neck Other: No JVD Chest Chest: normal inspection of the chest Resp Effort & Inspection: normal respiratory effort Auscultation: clear to auscultation bilaterally Cardio Rate: regular rate Rhythm: regular rhythm Heart Sounds: no murmurs GI Inspection: normal to inspection Other: Nontender abdominal exam Skin General skin exam: no rashes or lesions noted Neuro General: patient alert and patient oriented x3 Extrem Other: No calf swelling or tenderness, distal pulses intact Course Vital Signs Vital signs: Vital Signs Temperature 36.5 C 09/19/21 10:36 Pulse 89 09/19/21 10:36 Respiratory Rate 18 09/19/21 10:36 Blood Pressure 127/78 09/19/21 10:36 Pulse Oximetry 98 09/19/21 10:36 Temperature 36.5 C 09/19/21 10:36 Temperature Source Skin 09/19/21 10:36 Pulse 101 H 09/19/21 10:46 Respiratory Rate 18 09/19/21 10:36 Respiratory Effort 09/19/21 12:11 Blood Pressure 125/79 09/19/21 10:46 Blood Pressure Position Sitting 09/19/21 10:36 Pulse Oximetry 99 09/19/21 10:46 Oxygen Delivery Method Room Air 09/19/21 10:46 Oxygen Flow Rate 0 09/19/21 10:46 Pain Level 0 09/19/21 12:11 Lab/Test Results Lab/Test Results: Laboratory Tests Range/Units 09/19/21 09/19/21 12:07 12:07 WBC (4.4-10.8) 10^3/uL 12.60 H RBC (4.36-5.78) 10^6/uL 4.62 Hgb (13.5-17.5) g/dL 13.9 Hct (40.0-50.0) % 41.9 MCV (80-95) fL 90.7 MCH (27.0-33.0) pg 30.1 MCHC (32.0-36.0) % 33.2 RDW (11.8-14.1) % 12.1 Plt Count (130-400) 10^3/uL 256 MPV (8.0-11.0) fL 11.1 H Immature Gran % 0.4 Neutrophils % 82.5 Lymphocytes % 9.2 Monocytes % 7.1 Eosinophils % 0.6 Basophils % 0.2 Nucleated RBC % % 0 Absolute Neutrophils (1.2-6.7) 10^3/uL 10.40 H Absolute Lymphocytes (1.2-3.4) 10^3/uL 1.16 L Absolute Monocytes (0.1-0.8) 10^3/uL 0.89 H Absolute Eosinophils (0.0-0.7) 10^3/uL 0.08 Absolute Basophils (0.0-0.2) 10^3/uL 0.03 Sodium (136-145) mmol/L 138 Potassium (3.5-5.1) mmol/L 4.5 Chloride (98-107) mmol/L 102 Carbon Dioxide (21.0-32.0) mmol/L 30.2 Anion Gap (3-11) mmol/L 5.8 BUN (7-18) mg/dL 13 Creatinine (0.70-1.30) mg/dL 0.8 Estimated GFR/1.73 m2 (mL/min/1.73m2) >= 60.00 Glucose (74-106) mg/dL 125 H Calcium (8.5-10.1) mg/dL 11.2 H Total Bilirubin (0.2-1.0) mg/dL 0.4 AST (15-37) U/L 12 L ALT (16-63) U/L 21 Alkaline Phosphatase (46-116) U/L 129 H NT-Pro-B Natriuret Pep (<300) pg/mL 30 Total Protein (6.4-8.2) g/dL 7.6 Albumin (3.4-5.0) g/dL 3.9
[2021-09-19 13:00] LABS: Troponin I < 50 ng/L (<or=60)
[2021-09-19 13:02] VITALS: BP 128/74; PULSE 69; RESP 14; TEMP 36.9; O2SAT 98
--- NOTE | 2021-09-19 13:07 | NUR.NOTE ---
PCP referral done to establish care for CP within 1 week.
[2021-09-20 13:17] LABS: COVID-19 RT-PCR UVMMC Result Negative (Negative)
== END 2021-09-19 13:08 | disposition home or self-care (01) ==
PROVIDERS: Emergency Provider Physician Assistant
DX: R07.9 Chest pain, unspecified (principal); R06.02 Shortness of breath; Z20.822 Contact with and (suspected) exposure to COVID-19
CPT/HCPCS: 36415; 80053; 93005; 99284; U0003; 71046; 83880; 84484; 85025; 93010

== ENCOUNTER 2021-09-24 12:58 | Emergency (ER) | payer MEDICAID, SELFPAY ==
[2021-09-24] VITALS (12 sets, daily range): BP systolic 112–119; BP diastolic 59–65; PULSE 60–86; RESP 15–16; TEMP 36.3–37.1; O2SAT 96–98
--- NOTE | 2021-09-24 13:00 | RT.EKG_ITS ---
APPROVED REPORT Exam: Resting ECG Reason for Exam: chest pain, numbness, tingling Patient Location: E HR:61 bpm ECG Measurements Heart Rate 61 AXIS MA 186 P 49 QRSd 92 QRS 60 QT 367 T 32 QTc 370 Conclusion Sinus rhythm...normal P axis, V-rate 60- 99 no STEMI, non-diagnostic EKG I have reviewed and interpreted ECG and agree with software generated interpretation.
[2021-09-24 14:07] LABS: Abs Immature Grans 0.04 10^3/uL (0.0-0.06); Absolute Basophil Count 0.06 10^3/uL (0.0-0.2); Absolute Eosinophil Count 0.38 10^3/uL (0.0-0.7); Absolute Lymphocyte Count 1.76 10^3/uL (1.2-3.4); Absolute Monocyte Count 0.84 10^3/uL (0.1-0.8); Absolute Neutrophil Count 5.61 10^3/uL (1.2-6.7); Basophils % 0.7; Eosinophils % 4.4; HCT 40.5 % (40.0-50.0); HGB 13.8 g/dL (13.5-17.5); Immature Grans % 0.5; Lymphocytes % 20.3; MCH 31.2 pg (27.0-33.0); MCHC 34.1 % (32.0-36.0); MCV 91.6 fL (80-95); MPV 11.5 fL (8.0-11.0); Monocytes % 9.7; Neutrophils % 64.4; Nucleated RBC 0 %; Platelet Count 254 10^3/uL (130-400); RBC 4.42 10^6/uL (4.36-5.78); RDW-SD 40.5 fL; WBC 8.69 10^3/uL (4.4-10.8)
--- NOTE | 2021-09-24 14:15 | DI.RAD_ITS ---
Exam(s) XR CHEST 2V PA LATERAL EXAM: XR CHEST 2V PA LATERAL CLINICAL HISTORY: chest pain TECHNIQUE: 2D digital imaging was performed. COMPARISON: CR XR CHEST 2V PA LATERAL from 09/19/2021 FINDINGS: MEDIASTINUM: Normal. HEART: Normal. PULMONARY VASCULATURE: Normal. LUNGS: Clear. PLEURAL SPACE: No pleural effusion or pneumothorax. BONE:Unremarkable for age. IMPRESSION: No acute abnormality. DATA REPOSITORY: RADIATION DOSE DELIVERED:
[2021-09-24 14:26] LABS: ALT 25 U/L (16-63); AST 13 U/L (15-37); Albumin 3.7 g/dL (3.4-5.0); Alkaline Phosphatase 119 U/L (46-116); Anion Gap 5.3 mmol/L (3-11); BUN 12 mg/dL (7-18); Bilirubin, Total 0.3 mg/dL (0.2-1.0); CO2 30.7 mmol/L (21.0-32.0); CREATININE 0.9 mg/dL (0.70-1.30); Calcium 10.8 mg/dL (8.5-10.1); Chloride 104 mmol/L (98-107); Glucose 106 mg/dL (74-106); Magnesium 2.1 mg/dL (1.8-2.4); NT-proBNP 9 pg/mL (<300); Potassium 3.8 mmol/L (3.5-5.1); Sodium 140 mmol/L (136-145); Total Protein 7.1 g/dL (6.4-8.2); Troponin I < 50 ng/L (<or=60)
[2021-09-24] MEDS: hydrOXYzine HCL 25 MG TAB PO (14:41)
--- NOTE | 2021-09-24 14:48 | ED.GENADUL_ITS ---
Discharge Plan Disposition Patient Disposition: HOME Condition: Improving Discharge Details Clinical Impression: Chest pain, Anxiety in acute stress reaction Primary Care Provider: Jose C Sidhu ED Provider: Crow Gama Home Meds and New Rx's Prescriptions: New hydroxyzine HCl 25 mg tablet 25 mg PO TID PRN (Reason: anxiety) Qty: 10 0RF Continued methadone 10 mg/mL Concentrate 100 mg PO DAILY 0RF ondansetron 4 mg tablet,disintegrating 4 mg PO TID-QID PRN4 Days Qty: 10 0RF Discharge Instructions Instructions: Chest Pain (ED), Anxiety (ED) Additional Instructions: Please keep your scheduled appointment with your stress test tomorrow as this is important to rule out other possible causes of your chest pain. As discussed if you have any new or significant worsening of your symptoms or change in your symptoms feel free to return to the emergency department for reassessment. Please stay well-hydrated and do not take any further Tums and follow-up with your primary care provider for reassessment after your stress test is completed. Referrals: Jose C Sidhu MD [Primary Care Provider] - 5 days Discharge Data Discharge Date/Time-TO BE ENTERED AT DEPARTURE: 09/24/21 15:48 Medical Decision Making Patient presented with chest pain of uncertain etiology. Patient does state stress has been elevated along with multiple social situations creating increased anxiety. Based on on their history, lab analysis, EKG (which showed no evidence of ischemia or infarction), and imaging, in addition to the patient's physical exam, I see no evidence at this time for a malignant etiology for the patient's chest pain. There is no acute evidence for pulmonary embolus, acute myocardial infarction, pneumothorax, esophageal rupture, cardiac tamponade, thoracic artery dissection, or any other emergent cardiac, pulmonary or aortic pathology at this time. Based on the nature and long duration of the patient's pain, paucity of EKG findings, and normal cardiac enzymatic blood anal ysis, acute coronary syndrome is exceedingly unlikely. It is highly likely that cardiac enzymes would be abnormal in chest pain of this duration if their chest pain was attributable to ACS. Today's labs are unremarkable for signs of acute ACS, D-dimer is negative, calcium slightly high at 10.8 AST low alk phos slightly elevated at 119. BNP is negative. Patient does state that he has been using Tums given that he was evaluated in different emergency department and they thought he might have GERD. He was recommended to not further take any further Tums. This patient may require cardiac stress testing on an outpatient basis and arrangements have actually already been arranged for patient to be stress test tomorrow morning by their primary care physician. The patient understands that at this time there is no evidence for a more malignant underlying process, but the patient also understands that early in the process of an illness, an emergency department workup can be falsely reassuring. Routine discharge counseling was given to the patient and the patient understands that worsening, changing, or persistent symptoms should prompt an immediate call or follow up with their primary physician or the emergency department immediately. The importance of close follow up was also discussed with the patient. Lab Data Lab results reviewed: Yes I reviewed the patient's lab results. Labs: Laboratory Tests Range/Units 09/24/21 09/24/21 09/24/21 13:45 13:45 13:45 WBC (4.4-10.8) 10^3/uL 8.69 RBC (4.36-5.78) 10^6/uL 4.42 Hgb (13.5-17.5) g/dL 13.8 Hct (40.0-50.0) % 40.5 MCV (80-95) fL 91.6 MCH (27.0-33.0) pg 31.2 MCHC (32.0-36.0) % 34.1 RDW (11.8-14.1) % 12.0 Plt Count (130-400) 10^3/uL 254 MPV (8.0-11.0) fL 11.5 H Immature Gran % 0.5 Neutrophils % 64.4 Lymphocytes % 20.3 Monocytes % 9.7 Eosinophils % 4.4 Basophils % 0.7 Nucleated RBC % % 0 Absolute Neutrophils (1.2-6.7) 10^3/uL 5.61 Absolute Lymphocytes (1.2-3.4) 10^3/uL 1.76 Absolute Monocytes (0.1-0.8) 10^3/uL 0.84 H Absolute Eosinophils (0.0-0.7) 10^3/uL 0.38 Absolute Basophils (0.0-0.2) 10^3/uL 0.06 D-Dimer (<500) ng/mlFEU 322 Sodium (136-145) mmol/L 140 Potassium (3.5-5.1) mmol/L 3.8 Chloride (98-107) mmol/L 104 Carbon Dioxide (21.0-32.0) mmol/L 30.7 Anion Gap (3-11) mmol/L 5.3 BUN (7-18) mg/dL 12 Creatinine (0.70-1.30) mg/dL 0.9 Estimated GFR/1.73 m2 (mL/min/1.73m2) >= 60.00 Glucose (74-106) mg/dL 106 Calcium (8.5-10.1) mg/dL 10.8 H Magnesium (1.8-2.4) mg/dL 2.1 Total Bilirubin (0.2-1.0) mg/dL 0.3 AST (15-37) U/L 13 L ALT (16-63) U/L 25 Alkaline Phosphatase (46-116) U/L 119 H Troponin I (<or=60) ng/L < 50 NT-Pro-B Natriuret Pep (<300) pg/mL 9 Total Protein (6.4-8.2) g/dL 7.1 Albumin (3.4-5.0) g/dL 3.7 HPI General Mode of arrival: ambulatory . Date/Time Provider Initiated Documentation: 09/24/21 13:28 . Limitations to Documentation: no limitations . Information obtained by: patient, RN notes reviewed and old records reviewed . History of Present Illness 25 year old M presents to the emergency department with the chief complaint of Chest pain, intermittent muscle cramps, intermittent random tingling, described as moderate, with intensity rated at 8. Quality is described as aching, and is localized to the chest. Patient reports no radiation. Patient started experiencing this week(s) (2) and it has been constant. improves with No relieving factors improve symptom(s), Other factors that worsen symptoms (stress) . Patient did receive the following treatments prior to arrival, none Related Data Home Medications Medication Instructions Recorded Confirmed methadone 10 mg/mL oral concentrate 100 mg PO DAILY 10/17/20 09/24/21 ondansetron 4 mg disintegrating 4 mg PO TID-QID PRN 4 Days #10 tab 09/19/21 09/24/21 tablet hydroxyzine HCl 25 mg tablet 25 mg PO TID PRN #10 tab 09/24/21 Previous Rx's Medication Instructions Recorded ondansetron 4 mg disintegrating 4 mg PO TID-QID PRN 4 Days #10 tab 09/19/21 tablet hydroxyzine HCl 25 mg tablet 25 mg PO TID PRN #10 tab 09/24/21 Allergies Allergy/AdvReac Type Severity Reaction Status Date / Time codeine Allergy Intermediate Unverified 09/19/21 10:40 General Stated Complaint: GenMedical ADRIANA: 2 Review of Systems Constitutional Constitutional: Denies chills, Denies fever(s) and Denies malaise Cardiovascular Cardiovascular: Reports as per HPI, Reports chest pain, Denies chest pain with activity, Denies syncope, Denies irregular heart rhythm, Denies palpitations and Denies dyspnea Respiratory Respiratory: Denies cough, Denies hemoptysis and Denies dyspnea Gastrointestinal Gastrointestinal: Denies abdominal pain, Denies nausea and Denies vomiting Musculoskeletal Musculoskeletal: Reports muscle cramps and Reports tingling Neurologic Neurologic: Denies syncope and Reports tingling Psychiatric Psychiatric: Reports anxiety Endocrine Endocrine: Denies cold intolerance, Denies heat intolerance and Denies palpitations PFSH All Active Problems (Updated 09/24/21 @ 15:35 by Crow Gama NP) Cellulitis (Acute) Chest pain (Acute) Cocaine use (Acute) Chest pain (Acute) Anxiety in acute stress reaction (Acute) Social History Smoking/Tobacco Use Status: Never Smoking risk assessment performed?: Yes Alcohol Intake: never Drug use: Rarely Substance use type: crack/cocaine Details: used cocaine x 1 3 nweeks ago Do you feel safe at home: Yes Do you feel safe in your relationship?: Yes Exam Const General: cooperative, healthy appearing, comfortable, no acute distress, not diaphoretic and not ill appearing Nutritional Appearance: average body habitus Orientation: alert, awake and oriented x3 Limitations: mental status not altered Neck Neck: normal visual inspection, full ROM, trachea midline, supple and no anterior neck swelling Carotids: normal carotid upstroke and no bruits Chest Chest: normal inspection of the chest Resp Effort & Inspection: normal respiratory effort and able to speak in complete sentences Auscultation: clear to auscultation bilaterally Cardio Jugular venous pressure: no JVD Palpation: normal PMI Rate: regular rate Rhythm: regular rhythm Heart Sounds: S1 normal, S2 normal, no click, no gallops, no murmurs and no rubs Bruits: no abdominal aortic bruits and no carotid bruits Pulses: radial pulses present bilaterally 2+ GI Inspection: normal to inspection Palpation: soft, no aortic enlargement, no pulsatile masses and nontender Auscultation: normal bowel sounds Skin General skin exam: no rashes or lesions noted Neuro General: patient alert, patient awake, patient oriented x3, tone normal and moves all extremities Course Vital Signs Vital signs: Vital Signs Temperature 36.3 C L 09/24/21 13:21 Pulse 76 09/24/21 13:21 Respiratory Rate 15 09/24/21 13:21 Blood Pressure 119/59 L 09/24/21 13:21 Pulse Oximetry 98 09/24/21 13:21 Temperature 37.1 C 09/24/21 14:07 Temperature Source Tympanic 09/24/21 14:07 Pulse 61 09/24/21 14:07 Pulse 78 09/24/21 14:40 Respiratory Rate 16 09/24/21 14:07 Respiratory Effort Non-Labored 09/24/21 13:34 Respiratory Depth Normal 09/24/21 13:34 Respiratory Pattern Normal 09/24/21 13:34 Blood Pressure 112/65 09/24/21 14:07 Blood Pressure Position Sitting 09/24/21 13:21 Pulse Oximetry 96 09/24/21 14:07 Oxygen Delivery Method Room Air 09/24/21 14:07 Oxygen Flow Rate 0 09/24/21 14:07 Pain Level 6 09/24/21 14:07 Lab/Test Results Lab/Test Results: Laboratory Tests Range/Units 09/24/21 09/24/21 13:45 13:45 WBC (4.4-10.8) 10^3/uL 8.69 RBC (4.36-5.78) 10^6/uL 4.42 Hgb (13.5-17.5) g/dL 13.8 Hct (40.0-50.0) % 40.5 MCV (80-95) fL 91.6 MCH (27.0-33.0) pg 31.2 MCHC (32.0-36.0) % 34.1 RDW (11.8-14.1) % 12.0 Plt Count (130-400) 10^3/uL 254 MPV (8.0-11.0) fL 11.5 H Immature Gran % 0.5 Neutrophils % 64.4 Lymphocytes % 20.3 Monocytes % 9.7 Eosinophils % 4.4 Basophils % 0.7 Nucleated RBC % % 0 Absolute Neutrophils (1.2-6.7) 10^3/uL 5.61 Absolute Lymphocytes (1.2-3.4) 10^3/uL 1.76 Absolute Monocytes (0.1-0.8) 10^3/uL 0.84 H Absolute Eosinophils (0.0-0.7) 10^3/uL 0.38 Absolute Basophils (0.0-0.2) 10^3/uL 0.06 Sodium (136-145) mmol/L 140 Potassium (3.5-5.1) mmol/L 3.8 Chloride (98-107) mmol/L 104 Carbon Dioxide (21.0-32.0) mmol/L 30.7 Anion Gap (3-11) mmol/L 5.3 BUN (7-18) mg/dL 12 Creatinine (0.70-1.30) mg/dL 0.9 Estimated GFR/1.73 m2 (mL/min/1.73m2) >= 60.00 Glucose (74-106) mg/dL 106 Calcium (8.5-10.1) mg/dL 10.8 H Magnesium (1.8-2.4) mg/dL 2.1 Total Bilirubin (0.2-1.0) mg/dL 0.3 AST (15-37) U/L 13 L ALT (16-63) U/L 25 Alkaline Phosphatase (46-116) U/L 119 H Troponin I (<or=60) ng/L < 50 NT-Pro-B Natriuret Pep (<300) pg/mL 9 Total Protein (6.4-8.2) g/dL 7.1 Albumin (3.4-5.0) g/dL 3.7
[2021-09-24 14:55] LABS: D-Dimer 322 ng/mlFEU (<500)
== END 2021-09-24 15:48 | disposition home or self-care (01) ==
PROVIDERS: Emergency Provider Nurse Practitioner Family; PCP Family Medicine
DX: R07.9 Chest pain, unspecified (principal); F41.1 Generalized anxiety disorder; F43.0 Acute stress reaction; R20.2 Paresthesia of skin
CPT/HCPCS: 36415; 80053; 93005; 99284; 71046; 83735; 83880; 84484; 85025; 85379; 93010; 99283

== ENCOUNTER → 2021-09-25 01:13 | Outpatient (CLI) | payer MEDICAID, SELFPAY ==
--- NOTE | 2021-09-25 09:00 | ETT_ITS ---
APPROVED REPORT Exam: Exercise Treadmill Patient Location: Out-Patient Room/Bed: Stress Nurse: Lynette Lozoya RN Ordering Provider:JESSICA HUGGINS, Contact Number: BMI: 31.05 Baseline Rhythm: Sinus Rhythm Indications: CHEST PAIN Medical History Medical History: No significant medical history Cardiac Medications: Methadone, Allergies: Codeine Cardiac Risk Factors: FHX of CAD Previous Cardiac Procedures: None Pretest Chest Pain Characteristics: No chest pain Exercise History: Sedentary Physical Disabilities: None Lung Sounds: Clear to auscultation Heart Sounds: Regular Stress Test Details Test: Exercise stress testing was performed using a Tonny protocol. Rest Stress HR Resting HR Supine: 80 bpm Max Heart Rate (APMHR): 193 bpm Resting HR Standin bpm Target HR (85% APMHR): 164 bpm Max HR Achieved: 169 bpm % of APMHR: 87 Recovery HR: 90 bpm HR response to stress: Normal HR response to stress BP Resting BP Supine: 130/70 mmHg Resting BP Standin/78 mmHg Max BP: 172/74 mmHg Recovery BP: 124/60 mmHg BP response to stress: Normal blood pressure response to stress. ECG Resting ECG: Sinus Rhythm/Arrythmia Ectopy: None Comment: T wave inversion in lead III Stress ECG: Sinus Tachycardia ST Change: No significant ST segment changes noted Arrhythmia: None Comment: Periods of sinus arrhythmia Recovery ECG: Sinus Rhythm Recovery ST Change: No significant ST segment changes noted Recovery Arrhythmia: None Comment: Lead III T wave flipped upright in recovery; returned to baseline T wave inversion by 6 min recovery. Clinical Reason for Termination: Fatigue Stress Symptoms: Chest pain, Dyspnea, General Fatigue Exercise duration: 12 min02 sec Highest Stage Reached: Stage 5: 5.0 mph at 18% grade. Exercise capacity: 13.50 METs Jean Treadmill Score: 7.0 Rate Pressure Product: [id number] Stress ECG Conclusion 1. The resting electrocardiogram showed vertical axis, otherwise normal 2. Patient exercised on the Tonny protocol and completed a workload of 13.5 METS 3. Normal hemodynamic response to exercise. Patient achieved 87% of predicted heart rate for age 4. There was no electrocardiographic evidence of myocardial ischemia 5. There were no significant dysrhythmias Jean Treadmill Score is 7.0 which is Low risk. Stress Test Summary STAGE Time (mins) Speed (mph) Grade (%) HR BP SYMPTOMS METS Supine 80 130/70 Standing 75 124/78 1 3 1.7 10 102 132/70 4.6 2 6 2.5 12 112 150/72 Onset of chest pain. 7 3 9 3.4 14 122 162/68 10.2 4 12 4.2 16 164 12.9 1 min recovery 118 172/74 3 min recovery 93 146/60 6 min recovery 90 124/60 Patient reports 2/10 sternal chest pressure starting at 03:38 of exercise. Chest pressure described a s nonradiating. Reports associated tingling sensation of toes on left foot and 4th and 5th digits on left hand. Chest pressure increased in intensity to a max of 8/10 just prior to cessation of exercis e. Chest pressure decreased in intensity starting at 2 min into recovery. Chest pressure reported as resolved by 7 min into recovery period.
== END ==
PROVIDERS: PCP Family Medicine; Visit Provider Physician Assistant
DX: R07.89 Other chest pain (principal)
CPT/HCPCS: 93017

== ENCOUNTER 2021-09-26 11:19 | Emergency (ER) | payer MEDICAID, SELFPAY ==
[2021-09-26] VITALS (10 sets, daily range): BP systolic 107–135; BP diastolic 51–77; PULSE 48–80; RESP 12–22; TEMP 36.6–36.8; O2SAT 96–100
--- NOTE | 2021-09-26 11:15 | RT.EKG_ITS ---
APPROVED REPORT Exam: Resting ECG Reason for Exam: chest pain Patient Location: E HR:58 bpm ECG Measurements Heart Rate 58 AXIS OK 167 P 7 QRSd 98 QRS 75 QT 410 T 65 QTc 405 Conclusion Sinus bradycardia...rate< 60 Nonspecific T abnormalities, lateral leads...T <-0.10mV, I aVL V5 V6 no STEMI, non-diagnostic EKG I have reviewed and interpreted ECG and agree with software generated interpretation.
--- NOTE | 2021-09-26 11:27 | W.ED.GENAD ---
Discharge Plan Disposition Patient Disposition: HOME Condition: Improving Discharge Details Clinical Impression: Chest pain, Anxiety in acute stress reaction, Abdominal pain Primary Care Provider: Jose C Sidhu ED Provider: Barrington Arciniega Home Meds and New Rx's Prescriptions: Continued methadone 10 mg/mL Concentrate 110 mg PO DAILY 0RF ondansetron 4 mg tablet,disintegrating 4 mg PO TID-QID PRN4 Days Qty: 10 0RF Label Comments: has not used hydroxyzine HCl 25 mg tablet 25 mg PO TID PRN (Reason: anxiety) Qty: 10 0RF Discharge Instructions Instructions: Abdominal Pain (ED), Anxiety (ED), Chest Pain (ED) Additional Instructions: Work-up in the ER does not reveal any obvious emergent process. It was recommended to await a repeat troponin but you have declined. Please watch for new or worsening symptoms and return to the ER for any concerns. [id number] Pepcid as directed. Please contact your primary care provider later today or tomorrow to discuss your ongoing symptoms, need for outpatient reevaluation, and likely referral to GI for endoscopy. Medical Decision Making 25-year-old gentleman who reports symptoms off-and-on for the past couple of weeks, has been seen multiple times in the ER, and just had a stress test. He initially reported chest pain but upon further evaluation he is pointing more at his epigastric region, reports a sensation that feels like heartburn, and reports increased anxiety and stress in general. Clinically he appears well, nontoxic, hemodynamically stable. Given his multiple, recent, and extensive cardiac work-ups, extremely low suspicion for ACS. He tells me he is no longer using cocaine. He reports that the sensation takes his breath away, will obtain D-dimer although extremely low suspicion for PE. Clinically this appears to be anxiety and/or stress with component of GERD. Will initiate a cardiac work-up and provide a single full dose aspirin as well as a GI cocktail Upon reevaluation patient is asymptomatic. Reports that he feels as though this was simply GERD and stress. We discussed the importance of outpatient GI follow-up for potential endoscopy for his ongoing symptoms. We discussed his work-up is pending, he is agreeable to awaiting the initial work-up but does not want to wait for a delta troponin Initial laboratory values do not reveal any obvious emergent process. D-dimer 482, troponin less than 50, lipase 57. Tox screen pending Discussed work-up with patient. He remains asymptomatic. He feels well and requesting discharge. He does understand the risks of not obtaining a delta troponin. He plans to reach out to his primary care provider to discuss outpatient GI referral. We did discuss [id number] Pepcid for symptomatic control in the meantime. Standard discharge and return precautions were provided. This documentation was generated using [employer] system, please disregard any oddities of phrase or misspellings. Medical Records Medical records reviewed: Yes I reviewed the patient's medical records. Imaging Data Radiologic Study: Attestation: I personally reviewed and interpreted this imaging study as follows: Imaging: X-Ray Radiologist's impression: Exam(s) XR CHEST 2V PA LATERAL EXAM: XR CHEST 2V PA LATERAL CLINICAL HISTORY: chest pain TECHNIQUE: 2D digital imaging was performed. COMPARISON: CR XR CHEST 2V PA LATERAL from 09/24/2021 FINDINGS: MEDIASTINUM: Normal. HEART: Normal. PULMONARY VASCULATURE: Normal. LUNGS: Clear. PLEURAL SPACE: No pleural effusion or pneumothorax. BONE:Stable mild anterior wedging of mid thoracic vertebral bodies. IMPRESSION: No acute abnormality. Lab Data Lab results reviewed: Yes I reviewed the patient's lab results. Labs: Laboratory Tests Range/Units 09/26/21 09/26/21 09/26/21 11:00 11:00 11:00 WBC (4.4-10.8) 10^3/uL 11.30 H RBC (4.36-5.78) 10^6/uL 4.28 L Hgb (13.5-17.5) g/dL 12.9 L Hct (40.0-50.0) % 39.8 L MCV (80-95) fL 93.0 MCH (27.0-33.0) pg 30.1 MCHC (32.0-36.0) % 32.4 RDW (11.8-14.1) % 12.2 Plt Count (130-400) 10^3/uL 237 MPV (8.0-11.0) fL 11.4 H Immature Gran % 0.4 Neutrophils % 53.3 Lymphocytes % 29.1 Monocytes % 12.0 Eosinophils % 4.4 Basophils % 0.8 Nucleated RBC % % 0 Absolute Neutrophils (1.2-6.7) 10^3/uL 6.02 Absolute Lymphocytes (1.2-3.4) 10^3/uL 3.29 Absolute Monocytes (0.1-0.8) 10^3/uL 1.36 H Absolute Eosinophils (0.0-0.7) 10^3/uL 0.50 Absolute Basophils (0.0-0.2) 10^3/uL 0.09 D-Dimer (<500) ng/mlFEU 482 Sodium (136-145) mmol/L 139 Potassium (3.5-5.1) mmol/L 3.7 Chloride (98-107) mmol/L 104 Carbon Dioxide (21.0-32.0) mmol/L 31.3 Anion Gap (3-11) mmol/L 3.7 BUN (7-18) mg/dL 15 Creatinine (0.70-1.30) mg/dL 1.1 Estimated GFR/1.73 m2 (mL/min/1.73m2) >= 60.00 Glucose (74-106) mg/dL 133 H Calcium (8.5-10.1) mg/dL 10.8 H Magnesium (1.8-2.4) mg/dL 1.9 Total Bilirubin (0.2-1.0) mg/dL 0.3 AST (15-37) U/L 47 H ALT (16-63) U/L 46 Alkaline Phosphatase (46-116) U/L 123 H Troponin I (<or=60) ng/L < 50 Total Protein (6.4-8.2) g/dL 7.0 Albumin (3.4-5.0) g/dL 3.6 Lipase (73-393) U/L 57 Urine Color (Yellow) Urine Clarity (Clear) Urine pH (5-8) Ur Specific [place] (1.005-1.025) Urine Protein (Negative) mg/dL Urine Ketones (Negative) mg/dL Urine Blood (Negative) Urine Nitrite (Negative) Urine Bilirubin (Negative) Urine Urobilinogen (Up TO 0.2) EU/dL Ur Leukocyte Esterase (Negative) Urine Glucose (Negative) mg/dL Range/Units 09/26/21 09/26/21 11:00 12:50 WBC (4.4-10.8) 10^3/uL RBC (4.36-5.78) 10^6/uL Hgb (13.5-17.5) g/dL Hct (40.0-50.0) % MCV (80-95) fL MCH (27.0-33.0) pg MCHC (32.0-36.0) % RDW (11.8-14.1) % Plt Count (130-400) 10^3/uL MPV (8.0-11.0) fL Immature Gran % Neutrophils % Lymphocytes % Monocytes % Eosinophils % Basophils % Nucleated RBC % % Absolute Neutrophils (1.2-6.7) 10^3/uL Absolute Lymphocytes (1.2-3.4) 10^3/uL Absolute Monocytes (0.1-0.8) 10^3/uL Absolute Eosinophils (0.0-0.7) 10^3/uL Absolute Basophils (0.0-0.2) 10^3/uL D-Dimer (<500) ng/mlFEU Sodium (136-145) mmol/L Potassium (3.5-5.1) mmol/L Chloride (98-107) mmol/L Carbon Dioxide (21.0-32.0) mmol/L Anion Gap (3-11) mmol/L BUN (7-18) mg/dL Creatinine (0.70-1.30) mg/dL Estimated GFR/1.73 m2 (mL/min/1.73m2) Glucose (74-106) mg/dL Calcium (8.5-10.1) mg/dL Magnesium (1.8-2.4) mg/dL Total Bilirubin (0.2-1.0) mg/dL AST (15-37) U/L ALT (16-63) U/L Alkaline Phosphatase (46-116) U/L Troponin I (<or=60) ng/L Total Protein (6.4-8.2) g/dL Albumin (3.4-5.0) g/dL Lipase (73-393) U/L Cancelled Urine Color (Yellow) Yellow Urine Clarity (Clear) Clear Urine pH (5-8) 6.0 Ur Specific [place] (1.005-1.025) 1.020 Urine Protein (Negative) mg/dL Negative Urine Ketones (Negative) mg/dL Negative Urine Blood (Negative) Negative Urine Nitrite (Negative) Negative Urine Bilirubin (Negative) Negative Urine Urobilinogen (Up TO 0.2) EU/dL 0.2 Ur Leukocyte Esterase (Negative) Negative Urine Glucose (Negative) mg/dL Negative ECG Data Attestation: I personally reviewed and interpreted this ECG (s) as follows: Interpretation: Please see official report by Dr. Bundy. Sinus bradycardia, ventricular to 58, nonspecific T wave abnormalities, no STEMI. HPI General Mode of arrival: ambulatory. Date/Time Provider Initiated Documentation: 09/26/21 11:27. Limitations to Documentation: no limitations. Information obtained by: patient. History of Present Illness 25 year old M presents to the emergency department with the chief complaint of Chest pain/epigastric pain, described as severe, with intensity rated at 8. Quality is described as burning and stabbing, and is localized to the chest and abdomen. Patient reports no radiation. Patient started experiencing this minute(s) (25) and it has been constant. improves with No relieving factors improve symptom(s), Other factors that worsen symptoms (walking up hill when sx began) . Patient notes no other symptoms.. Patient did receive the following treatments prior to arrival, none Related Data Home Medications Medication Instructions Recorded Confirmed methadone 10 mg/mL oral concentrate 110 mg PO DAILY 10/17/20 09/26/21 ondansetron 4 mg disintegrating 4 mg PO TID-QID PRN 4 Days #10 tab 09/19/21 09/26/21 tablet hydroxyzine HCl 25 mg tablet 25 mg PO TID PRN #10 tab 09/24/21 09/26/21 Previous Rx's Medication Instructions Recorded ondansetron 4 mg disintegrating 4 mg PO TID-QID PRN 4 Days #10 tab 09/19/21 tablet hydroxyzine HCl 25 mg tablet 25 mg PO TID PRN #10 tab 09/24/21 Allergies Allergy/AdvReac Type Severity Reaction Status Date / Time codeine Allergy Intermediate Unverified 09/26/21 11:30 General ADRIANA: 2 Review of Systems Constitutional Constitutional: Denies fever(s) and Denies headache(s) ENT Ears, Nose, Mouth, and Throat: Denies headache(s) and Denies neck pain Cardiovascular Cardiovascular: Reports chest pain and Reports dyspnea (pain takes breath away) Respiratory Respiratory: Denies cough and Reports dyspnea (pain takes breath away) Gastrointestinal Gastrointestinal: Reports abdominal pain, Denies nausea and Denies vomiting Musculoskeletal Musculoskeletal: Denies back pain and Denies neck pain Integumentary/Breasts Skin/Breast: Denies rash Neurologic Neurologic: Denies headache(s) Psychiatric Psychiatric: Reports other (increased stress) Hematologic/Lymphatic Hematologic/Lymphatic: Denies easy bleeding and Denies easy bruising PFSH All Active Problems (Updated 09/26/21 @ 13:39 by ANDREW Chow) Cellulitis (Acute) Chest pain (Acute) Cocaine use (Acute) Chest pain (Acute) Anxiety in acute stress reaction (Acute) Abdominal pain (Acute) Social History Smoking/Tobacco Use Status: Never Smoking risk assessment performed?: Yes Alcohol Intake: never Drug use: Rarely Substance use type: crack/cocaine Details: used cocaine day of first visit for chest pain Do you feel safe at home: Yes Do you feel safe in your relationship?: Yes Exam Const General: cooperative, healthy appearing, comfortable, no acute distress and anxious Orientation: alert, awake and oriented x3 HENMT Head: normal to inspection, normocephalic and atraumatic Face and sinus: normal facial exam Mouth: moist mucous membranes Eyes General: appearance normal, both eyes and all related structures Conjunctivae: conjunctivae normal Neck Neck: normal visual inspection, full ROM, no meningeal signs, trachea midline and supple Chest Chest: normal inspection of the chest and normal palpation of entire chest wall Resp Effort & Inspection: normal respiratory effort and able to speak in complete sentences Auscultation: clear to auscultation bilaterally Cardio Rate: regular rate Rhythm: regular rhythm GI Palpation: soft, not firm, no guarding, no pulsatile masses and nontender Back/Spine/Pelvis Back: No back tenderness Skin General skin exam: no rashes or lesions noted Neuro General: patient alert, patient awake, moves all extremities and no focal motor deficits Cognition: normal cognition Speech: speech normal Gait: normal gait Sensory Exam: no sensory deficits noted Extrem General: normal to inspection, full ROM, capillary refill normal, no pedal edema and no calf tenderness Psych Appearance: grossly normal Mental Status: mental status grossly normal
--- NOTE | 2021-09-26 11:30 | DI.RAD_ITS ---
Exam(s) XR CHEST 2V PA LATERAL EXAM: XR CHEST 2V PA LATERAL CLINICAL HISTORY: chest pain TECHNIQUE: 2D digital imaging was performed. COMPARISON: CR XR CHEST 2V PA LATERAL from 09/24/2021 FINDINGS: MEDIASTINUM: Normal. HEART: Normal. PULMONARY VASCULATURE: Normal. LUNGS: Clear. PLEURAL SPACE: No pleural effusion or pneumothorax. BONE:Stable mild anterior wedging of mid thoracic vertebral bodies. IMPRESSION: No acute abnormality. DATA REPOSITORY: RADIATION DOSE DELIVERED:
[2021-09-26] MEDS: Aspirin 81 MG CHEW 324 MG CH (11:47)
[2021-09-26 11:48] LABS: Abs Immature Grans 0.04 10^3/uL (0.0-0.06); Absolute Basophil Count 0.09 10^3/uL (0.0-0.2); Absolute Lymphocyte Count 3.29 10^3/uL (1.2-3.4); Absolute Monocyte Count 1.36 10^3/uL (0.1-0.8); Absolute Neutrophil Count 6.02 10^3/uL (1.2-6.7); Basophils % 0.8; Eosinophils % 4.4; HCT 39.8 % (40.0-50.0); HGB 12.9 g/dL (13.5-17.5); Immature Grans % 0.4; Lymphocytes % 29.1; MCH 30.1 pg (27.0-33.0); MCHC 32.4 % (32.0-36.0); MPV 11.4 fL (8.0-11.0); Neutrophils % 53.3; Nucleated RBC 0 %; Platelet Count 237 10^3/uL (130-400); RBC 4.28 10^6/uL (4.36-5.78); RDW 12.2 % (11.8-14.1)
[2021-09-26 12:04] LABS: ALT 46 U/L (16-63); AST 47 U/L (15-37); Albumin 3.6 g/dL (3.4-5.0); Alkaline Phosphatase 123 U/L (46-116); Anion Gap 3.7 mmol/L (3-11); BUN 15 mg/dL (7-18); Bilirubin, Total 0.3 mg/dL (0.2-1.0); CO2 31.3 mmol/L (21.0-32.0); CREATININE 1.1 mg/dL (0.70-1.30); Calcium 10.8 mg/dL (8.5-10.1); Chloride 104 mmol/L (98-107); Glucose 133 mg/dL (74-106); Lipase 57 U/L (73-393); Magnesium 1.9 mg/dL (1.8-2.4); Potassium 3.7 mmol/L (3.5-5.1); Sodium 139 mmol/L (136-145); Troponin I < 50 ng/L (<or=60)
[2021-09-26 12:22] LABS: D-Dimer 482 ng/mlFEU (<500)
[2021-09-26 13:07] LABS: Bilirubin Negative (Negative); Blood Negative (Negative); Clarity Clear (Clear); Glucose Negative (Negative); Ketones Negative (Negative); Leukocyte Esterase Negative (Negative); Nitrite Negative (Negative); Urobilinogen 0.2 EU/dL (Up TO 0.2)
[2021-09-26 13:54] LABS: *AMPHETAMINES SCREEN URINE Negative (Negative); *BARBITURATES SCREEN URINE Negative (Negative); *BENZODIAZEPINES SCREEN URINE Negative (Negative); Cannabinoids THC Negative (Negative); Cocaine Screen,Urine Negative (Negative); METHADONE URINE SCREEN Positive (Negative); OPIATES URINE SCREEN Negative (Negative)
[2021-09-26 13:59] LABS: Tricyclic Antidepressants Negative (Negative)
== END 2021-09-26 14:11 | disposition home or self-care (01) ==
PROVIDERS: Emergency Provider Physician Assistant; PCP Family Medicine
DX: R07.9 Chest pain, unspecified (principal); R10.9 Unspecified abdominal pain; F41.9 Anxiety disorder, unspecified; F43.0 Acute stress reaction; F14.11 Cocaine abuse, in remission; F11.20 Opioid dependence, uncomplicated
CPT/HCPCS: 36415; 80053; 80307; 83690; 93005; 99284; 71046; 81003; 83735; 84484; 85025; 85379; 93010

== ENCOUNTER 2021-09-27 14:04 | Emergency (ER) | payer MEDICAID, SELFPAY ==
--- NOTE | 2021-09-27 14:12 | ED.GENADUL_ITS ---
Discharge Plan Disposition Patient Disposition: HOME Condition: Improving Discharge Details Clinical Impression: Chest pain, Elevated liver enzymes Primary Care Provider: Jose C Sidhu ED Provider: Breonna Bates Home Meds and New Rx's Prescriptions: Continued methadone 10 mg/mL Concentrate 110 mg PO DAILY 0RF omeprazole 20 mg capsule,delayed release(DR/EC) 20 mg PO DAILY PRN0RF Label Comments: TAKE ONE CAPSULE BY MOUTH EVERY DAY ondansetron 4 mg tablet,disintegrating 4 mg PO TID-QID PRN4 Days Qty: 10 0RF Label Comments: has not used hydroxyzine HCl 25 mg tablet 25 mg PO TID PRN (Reason: anxiety) Qty: 10 0RF Discharge Instructions Instructions: Chest Pain (ED) Additional Instructions: Your EKG and imaging today is reassuring and shows no evidence of acute concerning or significant findings. Your liver function tests were elevated today and it is recommended that you follow-up with your primary care doctor for recheck of your liver function tests within the next few weeks. Drink plenty of fluids and get plenty of rest. Call your primary care doctor's office tomorrow to schedule a follow-up appointment for reevaluation. Return immediately to the emergency department if you develop any worsening or new concerning symptoms. Discharge Data Discharge Physician: Breonna Bates Medical Decision Making 25-year-old male with a history of methadone use and cocaine use with frequent visits to the ED for anxiety and chest pain presents for concern for allergic reaction. Patient endorsed a left-sided neck rash after taking omeprazole followed by a tingling in his left arm and fourth and fifth fingers. He states since arrival to the ED he has had left-sided chest pain. He denies any drug use. Of note, this is patient's eighth visit here in the last 6 weeks for similar symptoms, he was last seen here yesterday for similar symptoms and had negative labs including negative dimer, troponin, lipase, urinalysis and chest x-ray. His UDS was positive for opiates. His vitals are within normal limits. He appears significantly anxious. He has reproducible left anterior chest wall tenderness. He otherwise is neurovascularly intact. There is no evidence of rash to his face or neck. Normal oropharynx. Lungs clear b/l. Differential diagnosis includes anxiety, chest wall strain, costochondritis. History and presentation does not appear consistent with ACS, PE or dissection. He states his father of [place] at age 50. Will obtain screening labs and EKG and give a dose of Ativan and Toradol and reassess. Labs and imaging reviewed. Normal white blood cell count. D-dimer elevated to 899 compared to normal result yesterday. He has elevation of his LFTs which are slightly increased from yesterday. Troponin negative. Covid negative. Chest x-ray negative. Due to elevated D-dimer, will obtain a CT chest CT chest negative. Repeat troponin EKG unchanged. Patient reassessed and he admitted to significant relief of his symptoms with Ativan and Toradol and he feels comfortable going home. Advised to call his PCP tomorrow for follow-up and for recheck of his liver enzymes. Discussed that I would not recommend giving additional Ativan due to risk of respiratory depression and dependence with his methadone use. Advised that he discuss other medication options for anxiety with his primary care doctor. Usual and customary return precautions given prior to discharge. Medical Records Medical records reviewed: Yes I reviewed the patient's medical records. Imaging Data Radiologic Study: Radiologist's impression: XR Chest Exam date and time: 09/27/2021 5:25 PM Age: 25 years old Clinical indication: Other: L sided chest pain, R/O acute disease TECHNIQUE: Imaging protocol: XR of the chest. Views: 2 views. COMPARISON: CR XR CHEST 2V PA LATERAL 09/26/2021 1:07 PM FINDINGS: Lungs: Clear lungs. Pleural spaces: No sizable pleural effusion. No pneumothorax. Heart/Mediastinum: Cardiomediastinal silhouette is within normal limits. Bones/joints: No acute displaced fracture or dislocation. IMPRESSION: No acute cardiopulmonary process. CTA Chest With Contrast Exam date and time: 09/27/2021 7:11 PM Age: 25 years old Clinical indication: Pain; Left-sided; Additional info: Left sided cp, R/O pe TECHNIQUE: Imaging protocol: Computed tomographic angiography of the chest with contrast. 3D rendering (Not supervised by radiologist): MIP and/or 3D reconstructed images were created by the technologist. Radiation optimization: All CT scans at this facility use at least one of these dose optimization techniques: automated exposure control; mA and/or kV adjustment per patient size (includes targeted exams where dose is matched to clinical indication); or iterative reconstruction. Contrast material: OMNI 350; Contrast volume: 100 ml; Contrast route: INTRAVENOUS (IV);? COMPARISON: CT CHEST PE ABD PELVIS W 07/04/2021 12:46 AM FINDINGS: Pulmonary arteries: Normal. No pulmonary emboli. Aorta: Unremarkable. No aortic aneurysm. No aortic dissection. Lungs: No consolidation. No ground-glass opacity. No significant endobronchial mucus. Pleural spaces: Unremarkable. No pneumothorax. No pleural effusion. Heart: Unremarkable. No cardiomegaly. No pericardial effusion. Lymph nodes: Unremarkable. No enlarged lymph nodes. Bones/joints: Unremarkable. No acute fracture. Soft tissues: Mild gynecomastia. IMPRESSION: 1. Negative for pulmonary embolism. 2. Negative for aortic dissection. 3. No significant pneumonia. Lab Data Lab results reviewed: Yes I reviewed the patient's lab results. Labs: Laboratory Tests Range/Units 09/27/21 09/27/21 09/27/21 16:35 16:35 16:35 WBC (4.4-10.8) 10^3/uL 9.36 RBC (4.36-5.78) 10^6/uL 4.36 Hgb (13.5-17.5) g/dL 13.3 L Hct (40.0-50.0) % 40.3 MCV (80-95) fL 92.4 MCH (27.0-33.0) pg 30.5 MCHC (32.0-36.0) % 33.0 RDW (11.8-14.1) % 12.4 Plt Count (130-400) 10^3/uL 217 MPV (8.0-11.0) fL 11.1 H Immature Gran % 0.2 Neutrophils % 73.2 Lymphocytes % 15.7 Monocytes % 7.6 Eosinophils % 2.9 Basophils % 0.4 Nucleated RBC % (0.0-0.3) % 0.0 Absolute Neutrophils (1.2-6.7) 10^3/uL 6.85 H Absolute Lymphocytes (1.2-3.4) 10^3/uL 1.47 Absolute Monocytes (0.1-0.8) 10^3/uL 0.71 Absolute Eosinophils (0.0-0.7) 10^3/uL 0.27 Absolute Basophils (0.0-0.2) 10^3/uL 0.04 D-Dimer (<500) ng/mlFEU 899 H Sodium (136-145) mmol/L 142 Potassium (3.5-5.1) mmol/L 3.5 Chloride (98-107) mmol/L 107 Carbon Dioxide (21.0-32.0) mmol/L 28.8 Anion Gap (3-11) mmol/L 6.2 BUN (7-18) mg/dL 6 L Creatinine (0.70-1.30) mg/dL 0.8 Estimated GFR/1.73 m2 (mL/min/1.73m2) >= 60.00 Glucose (74-106) mg/dL 111 H Calcium (8.5-10.1) mg/dL 10.4 H Magnesium (1.8-2.4) mg/dL 1.9 Total Bilirubin (0.2-1.0) mg/dL 0.3 AST (15-37) U/L 57 H ALT (16-63) U/L 196 H Alkaline Phosphatase (46-116) U/L 134 H Troponin I (<or=60) ng/L < 50 Total Protein (6.4-8.2) g/dL 6.8 Albumin (3.4-5.0) g/dL 3.4 COVID-19 Source SARS-CoV-2 (PCR) (Negative) Range/Units 09/27/21 09/27/21 18:11 19:30 WBC (4.4-10.8) 10^3/uL RBC (4.36-5.78) 10^6/uL Hgb (13.5-17.5) g/dL Hct (40.0-50.0) % MCV (80-95) fL MCH (27.0-33.0) pg MCHC (32.0-36.0) % RDW (11.8-14.1) % Plt Count (130-400) 10^3/uL MPV (8.0-11.0) fL Immature Gran % Neutrophils % Lymphocytes % Monocytes % Eosinophils % Basophils % Nucleated RBC % (0.0-0.3) % Absolute Neutrophils (1.2-6.7) 10^3/uL Absolute Lymphocytes (1.2-3.4) 10^3/uL Absolute Monocytes (0.1-0.8) 10^3/uL Absolute Eosinophils (0.0-0.7) 10^3/uL Absolute Basophils (0.0-0.2) 10^3/uL D-Dimer (<500) ng/mlFEU Sodium (136-145) mmol/L Potassium (3.5-5.1) mmol/L Chloride (98-107) mmol/L Carbon Dioxide (21.0-32.0) mmol/L Anion Gap (3-11) mmol/L BUN (7-18) mg/dL Creatinine (0.70-1.30) mg/dL Estimated GFR/1.73 m2 (mL/min/1.73m2) Glucose (74-106) mg/dL Calcium (8.5-10.1) mg/dL Magnesium (1.8-2.4) mg/dL Total Bilirubin (0.2-1.0) mg/dL AST (15-37) U/L ALT (16-63) U/L Alkaline Phosphatase (46-116) U/L Troponin I (<or=60) ng/L < 50 Total Protein (6.4-8.2) g/dL Albumin (3.4-5.0) g/dL COVID-19 Source Nasal/Nares SARS-CoV-2 (PCR) (Negative) Negative ECG Data Attestation: I personally reviewed and interpreted this ECG (s) as follows: Interpretation: #1 -- Rate of 75, sinus, normal axis, no STEMI. #2 -- Rate of 71, sinus, normal axis, no STEMI. HPI General Mode of arrival: ambulatory . Date/Time Provider Initiated Documentation: 09/27/21 14:06 . Limitations to Documentation: no limitations . Information obtained by: patient . HPI Narrative: Patient is a 25-year-old male with a history of anxiety, previous opiate use on methadone, with frequent ED visits for anxiety, stress reaction and chest pain who presents for concern for allergic reaction 1 hour after taking omeprazole. Patient has been seen here 8 times in the last several weeks for similar co mplaints, last seen yesterday for chest pain and discharged home with negative work-up. He states yesterday he was told he may have GERD and took omeprazole this afternoon. He states 1 hour later he developed rash to the left side of his neck with tingling in his left arm and twitching in his left fourth and fifth fingers. He states he feels the rash is now resolved but since being in the emergency department his sharp left-sided chest pain. He states it is similar to chest pain he has had in the past but more intense. He does admit to occasional shortness of breath but denies any fever, coughing, vomiting or diarrhea. Related Data Home Medications Medication Instructions Recorded Confirmed methadone 10 mg/mL oral concentrate 110 mg PO DAILY 10/17/20 09/27/21 ondansetron 4 mg disintegrating 4 mg PO TID-QID PRN 4 Days #10 tab 09/19/21 09/27/21 tablet hydroxyzine HCl 25 mg tablet 25 mg PO TID PRN #10 tab 09/24/21 09/27/21 omeprazole 20 mg capsule,delayed 20 mg PO DAILY PRN 09/27/21 09/27/21 release Previous Rx's Medication Instructions Recorded ondansetron 4 mg disintegrating 4 mg PO TID-QID PRN 4 Days #10 tab 09/19/21 tablet hydroxyzine HCl 25 mg tablet 25 mg PO TID PRN #10 tab 09/24/21 Allergies Allergy/AdvReac Type Severity Reaction Status Date / Time codeine Allergy Intermediate Unverified 09/27/21 14:17 General Stated Complaint: GenMedical ADRIANA: 2 Review of Systems All systems reviewed & are unremarkable except as noted in HPI and below Constitutional Constitutional: Reports as per HPI, Denies chills and Denies fever(s) Eyes Eyes: Denies blurry vision ENT Ears, Nose, Mouth, and Throat: Denies dizziness, Denies sore throat and Denies throat swelling Cardiovascular Cardiovascular: Reports chest pain and Denies dyspnea Respiratory Respiratory: Denies cough and Denies dyspnea Gastrointestinal Gastrointestinal: Denies abdominal pain, Denies diarrhea and Denies vomiting Genitourinary Genitourinary: Denies hematuria and Denies dysuria Musculoskeletal Musculoskeletal: Denies back pain and Denies numbness Integumentary/Breasts Skin/Breast: Denies lesions and Reports rash Neurologic Neurologic: Denies dizziness, Denies localized weakness and Denies numbness Allergic/Immunologic Allergic/Immunologic: Denies throat swelling PFSH All Active Problems (Updated 09/27/21 @ 20:14 by Breonna Bates DO) Chest pain (Acute) Elevated liver enzymes (Acute) Cellulitis (Acute) Chest pain (Acute) Chest pain (Acute) Abdominal pain (Acute) Medical History Anxiety in acute stress reaction Cocaine use Surgical History (Updated 09/27/21 @ 16:28 by Breonna Bates DO) No significant past surgical history Social History Smoking/Tobacco Use Status: Never Smoking risk assessment performed?: Yes Alcohol Intake: never Drug use: Rarely Substance use type: crack/cocaine Details: used cocaine day of first visit for chest pain Do you feel safe at home: Yes Do you feel safe in your relationship?: Yes Exam Const General: cooperative and anxious Orientation: alert, awake and oriented x3 HENMT Head: normal to inspection Mouth: oral mucosae normal Eyes General: appearance normal, both eyes and all related structures Neck Neck: normal visual inspection Chest Chest/axillae images: 1. Tender to palpation. No rash, lesions, erythema, ecchymosis. Resp Effort & Inspection: normal respiratory effort and able to speak in complete sentences Auscultation: clear to auscultation bilaterally Cardio Rate: regular rate Rhythm: regular rhythm GI Inspection: normal to inspection Palpation: soft, not firm, no guarding, not rigid and nontender Skin General skin exam: no rashes or lesions noted Neuro General: patient alert, patient awake and patient oriented x3 Motor: muscle tone normal throughout Extrem General: normal to inspection and full ROM Psych Appearance: grossly normal Affect: normal affect
[2021-09-27 14:13] VITALS: BP 136/67; PULSE 80; RESP 18; TEMP 37.6; O2SAT 99
[2021-09-27 16:06] VITALS: PULSE 98; RESP 18; O2SAT 98
--- NOTE | 2021-09-27 16:10 | RT.EKG_ITS ---
APPROVED REPORT Exam: Resting ECG Reason for Exam: chest pain Patient Location: E HR:75 bpm ECG Measurements Heart Rate 75 AXIS NC 169 P 44 QRSd 96 QRS 57 QT 376 T 24 QTc 419 Conclusion Sinus rhythm...normal P axis, V-rate 60- 99. Sinus. Normal axis. No STEMI. I have reviewed and interpreted ECG and agree with software generated interpretation.
[2021-09-27] MEDS: Ketorolac 60 MG/2 ML VIAL IM (16:24)
[2021-09-27] MEDS: LORazepam 1 MG TAB PO (16:24)
--- NOTE | 2021-09-27 16:30 | DI.RAD_ITS ---
Exam(s) XR CHEST 2V PA LATERAL EXAM: XR CHEST 2V PA LATERAL CLINICAL HISTORY: L sided chest pain, r/o acute disease TECHNIQUE: 2D digital imaging was performed of the chest. Two images were obtained. PA and lateral views were obtained. COMPARISON: CR XR CHEST 2V PA LATERAL from 09/26/2021 FINDINGS: MEDIASTINUM: Normal. HEART: Normal. PULMONARY VASCULATURE: Normal. LUNGS: Clear. PLEURAL SPACE: No pleural effusion or pneumothorax. BONE:Within normal limits for the patient's age. OTHER FINDINGS:Normal. IMPRESSION: No acute pulmonary findings. DATA REPOSITORY: RADIATION DOSE DELIVERED:
[2021-09-27 16:46] LABS: Abs Immature Grans 0.02 10^3/uL (0.0-0.06); Absolute Basophil Count 0.04 10^3/uL (0.0-0.2); Absolute Eosinophil Count 0.27 10^3/uL (0.0-0.7); Absolute Lymphocyte Count 1.47 10^3/uL (1.2-3.4); Absolute Monocyte Count 0.71 10^3/uL (0.1-0.8); Absolute Neutrophil Count 6.85 10^3/uL (1.2-6.7); Basophils % 0.4; Eosinophils % 2.9; HCT 40.3 % (40.0-50.0); HGB 13.3 g/dL (13.5-17.5); Immature Grans % 0.2; Lymphocytes % 15.7; MCH 30.5 pg (27.0-33.0); MCV 92.4 fL (80-95); MPV 11.1 fL (8.0-11.0); Monocytes % 7.6; Neutrophils % 73.2; Platelet Count 217 10^3/uL (130-400); RBC 4.36 10^6/uL (4.36-5.78); RDW 12.4 % (11.8-14.1); RDW-SD 42.3 fL; WBC 9.36 10^3/uL (4.4-10.8)
[2021-09-27 17:03] LABS: ALT 196 U/L (16-63); AST 57 U/L (15-37); Albumin 3.4 g/dL (3.4-5.0); Alkaline Phosphatase 134 U/L (46-116); Anion Gap 6.2 mmol/L (3-11); BUN 6 mg/dL (7-18); Bilirubin, Total 0.3 mg/dL (0.2-1.0); CO2 28.8 mmol/L (21.0-32.0); CREATININE 0.8 mg/dL (0.70-1.30); Calcium 10.4 mg/dL (8.5-10.1); Chloride 107 mmol/L (98-107); Glucose 111 mg/dL (74-106); Magnesium 1.9 mg/dL (1.8-2.4); Potassium 3.5 mmol/L (3.5-5.1); Sodium 142 mmol/L (136-145); Total Protein 6.8 g/dL (6.4-8.2); Troponin I < 50 ng/L (<or=60)
[2021-09-27 17:22] LABS: D-Dimer 899 ng/mlFEU (<500)
--- NOTE | 2021-09-27 17:30 | DI.CT_ITS ---
Exam(s) CT CHEST PE CTA EXAM: CT CHEST PE CTA CLINICAL HISTORY: L sided chest pain, r/o PE. TECHNIQUE: Imaging Protocol: Axial CT angiography was performed with multi-slice acquisition and mu lti-planar and/or 3D reconstructions. CONTRAST MATERIAL: Intravenous: Omnipaque 350 Contrast volume:100 mL COMPARISON: CT CT CHEST PE ABD PELVIS W from 07/04/2021 FINDINGS: Tracheobronchial tree: Patent where visualized. Pulmonary parenchyma: No consolidation or dominant measurable mass. No architectural distortion. Pulmonary Arteries: No evidence of filling defect to suggest pulmonary emboli. Mediastinum and Jessika: No dominant adenopathy or fluid collection. The esophagus is unremarkable. Visualized thyroid gland: Unremarkable. Pleura: No effusion or pneumothorax. Heart: The heart is not dilated. No coronary artery calcifications are seen. No pericardial effusion. Aorta: Thoracic aorta non-dilated. No evidence of dissection. Upper abdomen: Unremarkable. Soft tissues: Unremarkable. Bones: Within normal limits for the patient's age. IMPRESSION: No evidence of pulmonary embolism, thoracic aortic dissection or aneurysm. RADIATION DOSE DELIVERED: 480.62mGy.cm Total DLP DATA REPOSITORY: All CT scans at this facility are submitted to the National Radiology Data Registry (NRDR) Dose Index Registry (DIR) with the [employer] (ACR). RADIATION OPTIMIZATION: All CT scans at this facility use at least one of these dose optimization te chniques: automated exposure control; mA and/or kV adjustment per patient size (includes targeted exa ms where dose is matched to clinical indication); or iterative reconstruction.
--- NOTE | 2021-09-27 17:49 | DI.VRAD_ITS ---
PROCEDURE INFORMATION: Exam: XR Chest Exam date and time: 09/27/2021 5:25 PM Age: 25 years old Clinical indication: Other: L sided chest pain, R/O acute disease TECHNIQUE: Imaging protocol: XR of the chest. Views: 2 views. COMPARISON: CR XR CHEST 2V PA LATERAL 09/26/2021 1:07 PM FINDINGS: Lungs: Clear lungs. Pleural spaces: No sizable pleural effusion. No pneumothorax. Heart/Mediastinum: Cardiomediastinal silhouette is within normal limits. Bones/joints: No acute displaced fracture or dislocation. IMPRESSION: No acute cardiopulmonary process. Dictated and Authenticated by: Freddy Billingsley MD. Ordering:JOSEPH Ravi MD
[2021-09-27 18:35] LABS: Source Nasal/Nares
[2021-09-27 19:04] VITALS: PULSE 65; TEMP 36.9; O2SAT 97
--- NOTE | 2021-09-27 19:15 | RT.EKG_ITS ---
APPROVED REPORT Exam: Resting ECG Reason for Exam: chest pain Patient Location: E HR:71 bpm ECG Measurements Heart Rate 71 AXIS VA 180 P 57 QRSd 96 QRS 67 QT 385 T 35 QTc 419 Conclusion Sinus rhythm...normal P axis, V-rate 60- 99. Sinus. Normal axis. No STEMI. I have reviewed and interpreted ECG and agree with software generated interpretation.
[2021-09-27 19:17] LABS: COVID-19 PCR Negative (Negative)
[2021-09-27] MEDS: Omnipaque 350 MG/ML 100 ML BTL IJ (19:20)
[2021-09-27 19:50] LABS: Troponin I < 50 ng/L (<or=60)
--- NOTE | 2021-09-27 19:54 | DI.VRAD_ITS ---
PROCEDURE INFORMATION: Exam: CTA Chest With Contrast Exam date and time: 09/27/2021 7:11 PM Age: 25 years old Clinical indication: Pain; Left-sided; Additional info: Left sided cp, R/O pe TECHNIQUE: Imaging protocol: Computed tomographic angiography of the chest with contrast. 3D rendering (Not supervised by radiologist): MIP and/or 3D reconstructed images were created by the technologist. Radiation optimization: All CT scans at this facility use at least one of these dose optimization techniques: automated exposure control; mA and/or kV adjustment per patient size (includes targeted exams where dose is matched to clinical indication); or iterative reconstruction. Contrast material: OMNI 350; Contrast volume: 100 ml; Contrast route: INTRAVENOUS (IV); COMPARISON: CT CHEST PE ABD PELVIS W 07/04/2021 12:46 AM FINDINGS: Pulmonary arteries: Normal. No pulmonary emboli. Aorta: Unremarkable. No aortic aneurysm. No aortic dissection. Lungs: No consolidation. No ground-glass opacity. No significant endobronchial mucus. Pleural spaces: Unremarkable. No pneumothorax. No pleural effusion. Heart: Unremarkable. No cardiomegaly. No pericardial effusion. Lymph nodes: Unremarkable. No enlarged lymph nodes. Bones/joints: Unremarkable. No acute fracture. Soft tissues: Mild gynecomastia. IMPRESSION: 1. Negative for pulmonary embolism. 2. Negative for aortic dissection. 3. No significant pneumonia. Dictated and Authenticated by: Ricardo Casper MD. Ordering:JOSEPH Ravi MD
[2021-09-27 20:12] VITALS: BP 126/75; PULSE 79; TEMP 36; O2SAT 95
== END 2021-09-27 20:20 | disposition home or self-care (01) ==
PROVIDERS: Emergency Provider Physician Assistant; PCP Family Medicine
DX: R07.9 Chest pain, unspecified (principal); R79.89 Other specified abnormal findings of blood chemistry; F11.20 Opioid dependence, uncomplicated; R20.2 Paresthesia of skin; R79.1 Abnormal coagulation profile
CPT/HCPCS: 36415; 71275; 80053; 87635; 93005; 96372; 99284; 71046; 83735; 84484; 85025; 85379; 93010; J1885; J3490

== ENCOUNTER 2021-10-01 18:15 | Outpatient (REF) | payer MEDICAID, SELFPAY ==
[2021-10-03 12:04] LABS: COVID-19 RT-PCR UVMMC Result Negative (Negative)
== END 2021-10-01 18:16 | disposition home or self-care (01) ==
LOC: LBN 18:15
PROVIDERS: PCP Family Medicine; Visit Provider Nurse Practitioner Family
DX: Z20.822 Contact with and (suspected) exposure to COVID-19 (principal); J06.9 Acute upper respiratory infection, unspecified
CPT/HCPCS: U0003

== ENCOUNTER 2021-10-04 18:11 | Emergency (ER) | payer MEDICAID, SELFPAY ==
[2021-10-04 18:22] VITALS: BP 115/74; PULSE 71; RESP 11; TEMP 36.6; O2SAT 96
[2021-10-04] MEDS: Dexamethasone 10 MG/ML VIAL IVP (18:58)
--- NOTE | 2021-10-04 19:01 | ED.GENADUL_ITS ---
Discharge Plan Disposition Patient Disposition: HOME Condition: Stable Discharge Details Chief Complaint: RespSymp Clinical Impression: Acute viral syndrome Primary Care Provider: Jose C Sidhu ED Provider: Ajay Kennedy Home Meds and New Rx's Prescriptions: No Action methadone 10 mg/mL Concentrate 110 mg PO DAILY 0RF omeprazole 20 mg capsule,delayed release(DR/EC) 20 mg PO DAILY PRN0RF Label Comments: TAKE ONE CAPSULE BY MOUTH EVERY DAY ondansetron 4 mg tablet,disintegrating 4 mg PO TID-QID PRN4 Days Qty: 10 0RF Label Comments: has not used hydroxyzine HCl 25 mg tablet 25 mg PO TID PRN (Reason: anxiety) Qty: 10 0RF Discharge Instructions Instructions: Viral Syndrome (ED) Additional Instructions: Please be sure to stay hydrated, consider Gatorade and or Pedialyte, use i buprofen and Tylenol for body aches and fevers. Please return to the emergency department if you develop worsening breathing cough or other abnormal symptoms. Medical Decision Making 25-year-old male no past medical history presents with dry cough body aches subjective fevers and nasal congestion over the past several days, 2 sick contacts at home that were negative for COVID, resting comfortably no acute distress hemodynamically stable normoxic no respiratory stress lungs clear bilaterally, likely viral syndrome versus less likely bacterial pneumonia. Must consider COVID-19. We will swab patient, will dose dexamethasone for inflammatory symptoms. Home care instructions and return precautions given. At this time given stable young healthy patient with likely viral syndrome labs and imaging are not warranted. Given HPI General Date/Time Provider Initiated Documentation: 10/04/21 18:18 . HPI Narrative: 25-year-old male denies past medical history presents with dry cough body aches and nasal congestion over the past several days, to family numbers at home have pneumonia. They are negative for COVID. Related Data Home Medications Medication Instructions Recorded Confirmed methadone 10 mg/mL oral concentrate 110 mg PO DAILY 10/17/20 10/04/21 ondansetron 4 mg disintegrating 4 mg PO TID-QID PRN 4 Days #10 tab 09/19/21 10/04/21 tablet hydroxyzine HCl 25 mg tablet 25 mg PO TID PRN #10 tab 09/24/21 10/04/21 omeprazole 20 mg capsule,delayed 20 mg PO DAILY PRN 09/27/21 10/04/21 release Previous Rx's Medication Instructions Recorded ondansetron 4 mg disintegrating 4 mg PO TID-QID PRN 4 Days #10 tab 09/19/21 tablet hydroxyzine HCl 25 mg tablet 25 mg PO TID PRN #10 tab 09/24/21 Allergies Allergy/AdvReac Type Severity Reaction Status Date / Time codeine Allergy Intermediate Unverified 10/04/21 18:27 General Stated Complaint: RespSymp ADRIANA: 3 Review of Systems Narrative: Review of Systems Constitutional: Body aches Eyes: negative ENT: negative Cardiovascular: negative Respiratory: Cough Gastrointestinal: negative : negative Musculoskeletal: negative Skin: negative Neurologic: negative Psych: negative PFSH All Active Problems (Updated 10/04/21 @ 19:05 by Ajay Kennedy MD) Chest pain (Acute) Elevated liver enzymes (Acute) Acute viral syndrome (Acute) Cellulitis (Acute) Chest pain (Acute) Chest pain (Acute) Abdominal pain (Acute) Medical History Anxiety in acute stress reaction Cocaine use Surgical History (Updated 09/27/21 @ 16:28 by Breonna Bates DO) No significant past surgical history Social History Smoking/Tobacco Use Status: Never Smoking risk assessment performed?: Yes Alcohol Intake: never Drug use: Rarely Substance use type: crack/cocaine Details: used cocaine day of first visit for chest pain Do you feel safe at home: Yes Do you feel safe in your relationship?: Yes Exam Narrative Exam Narrative: Physical Examination General: alert, awake, cooperative, resting comfortably, no acute distress HEENT: normocephalic, atraumatic; PERRL, EOM intact, conjunctiva normal; no nasal discharge; moist mucous membranes, oral and pharyngeal mucosa normal, tolerating secretions Neck: supple, trachea midline; full ROM Chest: normal to inspection Respiratory: normal respiratory effort, speaking in full sentences, clear to auscultation, no wheezing, rales or rhonchi Cardiac: regular rate, regular rhythm, S1S2 intact, no murmurs rubs or gallops GI: abdomen soft, non-tender, non-distended; no palpable mass or hepatosplenomegaly Skin: no lesions, rashes or trauma appreciated Neuro: AAOx3, normal speech, moving all extremities Extremities: Psych: Appropriate mood and affect Course Vital Signs Vital signs: Vital Signs Temperature 36.6 C 10/04/21 18:22 Pulse 71 10/04/21 18:22 Respiratory Rate 11 L 10/04/21 18:22 Blood Pressure 115/74 10/04/21 18:22 Pulse Oximetry 96 10/04/21 18:22 Temperature 36.6 C 10/04/21 18:22 Temperature Source Oral 10/04/21 18:22 Pulse 71 10/04/21 18:22 Respiratory Rate 11 L 10/04/21 18:22 Respiratory Effort 10/04/21 18:28 Respiratory Depth Normal 10/04/21 18:28 Blood Pressure 115/74 10/04/21 18:22 Blood Pressure Position Supine 10/04/21 18:22 Pulse Oximetry 96 10/04/21 18:22 Oxygen Delivery Method Room Air 10/04/21 18:22 Oxygen Flow Rate 0 10/04/21 18:22 Pain Level 3 10/04/21 18:22
[2021-10-04 19:09] VITALS: BP 108/82; PULSE 72; RESP 16; TEMP 36.6; O2SAT 99
[2021-10-06 12:33] LABS: COVID-19 RT-PCR UVMMC Result Negative (Negative)
--- NOTE | 2021-10-15 11:39 | NUR.NOTE ---
Nursing Note: Patient presented asking for a copy of his discharge instructions. Jade Vernon
== END 2021-10-04 19:12 | disposition home or self-care (01) ==
PROVIDERS: Emergency Provider Emergency Medicine; PCP Family Medicine
DX: B34.9 Viral infection, unspecified (principal); R05.1 Acute cough; R50.9 Fever, unspecified; Z20.822 Contact with and (suspected) exposure to COVID-19
CPT/HCPCS: 96374; 99283; 99284; U0003; J1100

== ENCOUNTER 2021-10-07 10:58 | Emergency (ER) | payer MEDICAID, SELFPAY ==
--- NOTE | 2021-10-07 11:15 | RT.EKG_ITS ---
APPROVED REPORT Exam: Resting ECG Reason for Exam: CP Patient Location: E HR:69 bpm ECG Measurements Heart Rate 69 AXIS LA 169 P 40 QRSd 95 QRS 50 QT 382 T 27 QTc 411 Conclusion Sinus rhythm...normal P axis, V-rate 60- 99. Sinus. Normal axis. No STEMI. I have reviewed and interpreted ECG and agree with software generated interpretation.
--- NOTE | 2021-10-07 11:16 | ED.GENADUL_ITS ---
Discharge Plan Disposition Patient Disposition: HOME Condition: Stable Discharge Details Clinical Impression: Blood in stool, Chronic chest pain, Stress, Anxiety, Insomnia Primary Care Provider: Jose C Sidhu ED Provider: Breonna Bates Home Meds and New Rx's Prescriptions: Continued methadone 10 mg/mL Concentrate 110 mg PO DAILY 0RF omeprazole 20 mg capsule,delayed release(DR/EC) 20 mg PO DAILY PRN0RF Label Comments: TAKE ONE CAPSULE BY MOUTH EVERY DAY hydroxyzine HCl 25 mg tablet 50 mg PO TID PRN (Reason: anxiety) 0RF ondansetron 4 mg tablet,disintegrating 4 mg PO TID-QID PRN4 Days Qty: 10 0RF Label Comments: has not used Discharge Instructions Instructions: Chest Pain (ED), Stress (ED), Anxiety (ED), Melena (ED) Additional Instructions: Your lab work, EKG and imaging today is reassuring and shows no evidence of acute concerning or significant findings. You are being sent home with Ativan to take as needed and directed for feelings of stress, anxiety, chest pain or to help with sleep. Call your primary care doctor's office tomorrow to schedule a follow-up appointment for reevaluation and for consideration for referral for outpatient echocardiogram and to consider starting regular medication for your anxiety. Return immediately to the emergency department if you develop any worsening or new concerning symptoms such as fever, worsening rectal bleeding, worsening abdominal pain or any other concerns. Discharge Data Discharge Date/Time-TO BE ENTERED AT DEPARTURE: 10/07/21 13:00 Discharge Physician: Breonna Bates Medical Decision Making 26-year-old male who is well-known to the emergency department with multiple visits for various complaints presents with episode of blood in stool this morning. Records note that this is patient's eighth visit in the last 3 weeks. Also complains of his usual chronic chest pain and shortness of breath that he has had over the past few weeks. EKG notes a rate of 69, sinus, normal axis and no STEMI. His vitals are within normal limits. He appears tearful and anxious and is crying during exam. He admits to significant amount of stress. History and presentation appears consistent with stress and anxiety. He has had multiple recent work-ups including normal lab work, negative CT chest and normal outpatient exercise stress test. Labs reviewed and unremarkable. White blood cell count is 13 which may be a stress response but he denies any fever cough and chest x-ray is within normal limits. Troponin negative. Normal hemoglobin. Patient declined rectal exam. As he has had normal bowel movements without bleeding since then and denies any rectal pain and has normal hemoglobin and hemodynamically stable, discussed that his symptoms could be secondary to an internal hemorrhoid. As for his intermittent right-sided abdominal pain, his abdomen is essentially soft and nontender at this time. Discussed that we could consider obtaining a CT abdomen and pelvis to rule out diverticulitis but he is declining this at this time. As for patient's level of stress and anxiety and insomnia, I will send home with a few tabs of Ativan to take as needed and directed. He was advised to call his primary care doctor tomorrow for reevaluation and consideration for referral for outpatient echocardiogram if his symptoms do not improve or worsen. Also discussed that he might need to start an SSRI for his anxiety and stress as benzodiazepines can be habit-forming. Usual and customary return precautions gi ashvin prior to discharge. Medical Records Medical records reviewed: Yes I reviewed the patient's medical records. Imaging Data Radiologic Study: Radiologist's impression: XR Chest Exam date and time: 10/07/2021 11:46 AM Age: 26 years old Clinical indication: Pain; Shortness of breath; Other: Cp TECHNIQUE: Imaging protocol: XR of the chest. Views: 2 views. COMPARISON: CR XR CHEST 2V PA LATERAL 09/27/2021 5:25 PM FINDINGS: Lungs: Unremarkable. No consolidation. Pleural spaces: Unremarkable. No pleural effusion. No pneumothorax. Heart/Mediastinum: Unremarkable. No cardiomegaly. Bones/joints: Unremarkable. IMPRESSION: No acute findings. Lab Data Lab results reviewed: Yes I reviewed the patient's lab results. Labs: Laboratory Tests Range/Units 10/07/21 10/07/21 10/07/21 11:42 11:42 11:42 WBC (4.4-10.8) 10^3/uL 13.16 H RBC (4.36-5.78) 10^6/uL 4.88 Hgb (13.5-17.5) g/dL 14.7 Hct (40.0-50.0) % 46.0 MCV (80-95) fL 94.3 MCH (27.0-33.0) pg 30.1 MCHC (32.0-36.0) % 32.0 RDW (11.8-14.1) % 12.0 Plt Count (130-400) 10^3/uL 253 MPV (8.0-11.0) fL 11.0 Immature Gran % 0.5 Neutrophils % 70.6 Lymphocytes % 18.0 Monocytes % 9.3 Eosinophils % 1.2 Basophils % 0.4 Nucleated RBC % (0.0-0.3) % 0.0 Absolute Neutrophils (1.2-6.7) 10^3/uL 9.29 H Absolute Lymphocytes (1.2-3.4) 10^3/uL 2.37 Absolute Monocytes (0.1-0.8) 10^3/uL 1.22 H Absolute Eosinophils (0.0-0.7) 10^3/uL 0.16 Absolute Basophils (0.0-0.2) 10^3/uL 0.05 Sodium Cancelled 141 Potassium Cancelled 4.0 Chloride Cancelled 103 Carbon Dioxide Cancelled 32.9 H Anion Gap Cancelled 5.1 BUN Cancelled 9 Creatinine Cancelled 1.0 Estimated GFR/1.73 m2 Cancelled >= 60.00 Glucose Cancelled 99 Calcium Cancelled 11.4 H Magnesium (1.8-2.4) mg/dL 2.0 Total Bilirubin Cancelled 0.4 AST Cancelled 14 L ALT Cancelled 48 Alkaline Phosphatase Cancelled 134 H Troponin I (<or=60) ng/L < 50 Total Protein Cancelled 7.7 Albumin Cancelled 3.8 ECG Data Attestation: I personally reviewed and interpreted this ECG (s) as follows: Interpretation: Rate of 69, sinus, normal axis, no stemi. HPI General Mode of arrival: ambulatory . Date/Time Provider Initiated Documentation: 10/07/21 11:15 . Limitations to Documentation: no limitations . Information obtained by: patient . HPI Narrative: Patient is a 26-year-old male well-known to the emergency department with multiple visits for various complaints, most specifically chest pain and shortness of breath frequently who presents for his usual chest pain and shortness of breath for the past 2 weeks and now with blood in stool this morning. Of note, this is patient's eighth visit to the emergency department in the past 3 weeks. He states his chest pain and shortness of breath is constant and is there all day every day the past several weeks. He has had multiple work-ups including CT chest and outpatient stress test which have been normal. Patient states he has a significant amount of stress and anxiety and the chest pain or shortness of breath keeps him up at night. He states also today when he awoke and had a formed brown bowel movement there was maroon-colored blood mixed in with the stool and in the toilet. He denies any fever, nausea, vomiting, urinary symptoms or diarrhea or rectal pain. He states he has had a few bowel movements since then without any rectal bleeding. He states since yesterday he has had intermittent right-sided abdominal pain but denies any present. Related Data Home Medications Medication Instructions Recorded Confirmed methadone 10 mg/mL oral concentrate 110 mg PO DAILY 10/17/20 10/07/21 ondansetron 4 mg disintegrating 4 mg PO TID-QID PRN 4 Days #10 tab 09/19/21 10/04/21 tablet omeprazole 20 mg capsule,delayed 20 mg PO DAILY PRN 09/27/21 10/04/21 release hydroxyzine HCl 25 mg tablet 50 mg PO TID PRN 10/07/21 10/07/21 Previous Rx's Medication Instructions Recorded ondansetron 4 mg disintegrating 4 mg PO TID-QID PRN 4 Days #10 tab 09/19/21 tablet Allergies Allergy/AdvReac Type Severity Reaction Status Date / Time codeine Allergy Intermediate Unverified 10/07/21 11:27 General Stated Complaint: Chest Pain ADRIANA: 3 Review of Systems All systems reviewed & are unremarkable except as noted in HPI and below Constitutional Constitutional: Reports as per HPI, Denies chills and Denies fever(s) Eyes Eyes: Denies blurry vision ENT Ears, Nose, Mouth, and Throat: Denies dizziness, Denies sore throat and Denies throat swelling Cardiovascular Cardiovascular: Reports chest pain and Reports dyspnea Respiratory Respiratory: Denies cough and Reports dyspnea Gastrointestinal Gastrointestinal: Denies abdominal pain, Reports hematochezia (melena), Denies diarrhea and Denies vomiting Genitourinary Genitourinary: Denies hematuria and Denies dysuria Musculoskeletal Musculoskeletal: Denies back pain and Denies numbness Integumentary/Breasts Skin/Breast: Denies lesions and Denies rash Neurologic Neurologic: Denies dizziness, Denies localized weakness and Denies numbness Allergic/Immunologic Allergic/Immunologic: Denies throat swelling PFSH All Active Problems (Updated 10/07/21 @ 12:50 by Breonna Bates DO) Chest pain (Acute) Elevated liver enzymes (Acute) Acute viral syndrome (Acute) Blood in stool (Acute) Chronic chest pain (Acute) Stress (Acute) Anxiety (Chronic) Insomnia (Acute) Cellulitis (Acute) Chest pain (Acute) Chest pain (Acute) Abdominal pain (Acute) Medical History Anxiety in acute stress reaction Cocaine use Surgical History (Updated 09/27/21 @ 16:28 by Breonna Bates DO) No significant past surgical history Social History Smoking/Tobacco Use Status: Never Smoking risk assessment performed?: Yes Alcohol Intake: never Drug use: Rarely Substance use type: crack/cocaine Details: used cocaine day of first visit for chest pain Do you feel safe at home: Yes Do you feel safe in your relationship?: Yes Exam Const General: cooperative, anxious and other (tearful, crying during exam) Orientation: alert, awake and oriented x3 HENMT Head: normal to inspection Mouth: oral mucosae normal Eyes General: appearance normal, both eyes and all related structures Neck Neck: normal visual inspection Resp Effort & Inspection: normal respiratory effort and able to speak in complete sentences Auscultation: clear to auscultation bilaterally Cardio Rate: regular rate Rhythm: regular rhythm GI Inspection: normal to inspection Palpation: soft, not firm, no guarding, not rigid and nontender Skin General skin exam: no rashes or lesions noted Neuro General: patient alert, patient awake and patient oriented x3 Motor: muscle tone normal throughout Extrem General: normal to inspection, full ROM and no edema Psych Appearance: grossly normal Affect: normal affect
[2021-10-07 11:22] VITALS: BP 124/67; PULSE 79; RESP 18; TEMP 37.4; O2SAT 99
--- NOTE | 2021-10-07 11:30 | DI.RAD_ITS ---
Exam(s) XR CHEST 2V PA LATERAL EXAM: XR CHEST 2V PA LATERAL CLINICAL HISTORY: chest pain/sob, r/o acute disease TECHNIQUE: 2D digital imaging was performed. COMPARISON: CR,XR XR CHEST 2V PA LATERAL from 09/27/2021 FINDINGS: The heart is not enlarged. The lungs are clear and well expanded. No pleural effusion seen. Mediastin al contours appear intact. IMPRESSION: Normal chest. RADIATION DOSE DELIVERED: Total DLP
[2021-10-07 11:59] LABS: Abs Immature Grans 0.06 10^3/uL (0.0-0.06); Absolute Basophil Count 0.05 10^3/uL (0.0-0.2); Absolute Eosinophil Count 0.16 10^3/uL (0.0-0.7); Absolute Lymphocyte Count 2.37 10^3/uL (1.2-3.4); Absolute Monocyte Count 1.22 10^3/uL (0.1-0.8); Absolute Neutrophil Count 9.29 10^3/uL (1.2-6.7); Basophils % 0.4; Eosinophils % 1.2; HGB 14.7 g/dL (13.5-17.5); Immature Grans % 0.5; MCH 30.1 pg (27.0-33.0); MCV 94.3 fL (80-95); Monocytes % 9.3; Neutrophils % 70.6; Platelet Count 253 10^3/uL (130-400); RBC 4.88 10^6/uL (4.36-5.78); RDW-SD 42.3 fL; WBC 13.16 10^3/uL (4.4-10.8)
--- NOTE | 2021-10-07 12:10 | DI.VRAD_ITS ---
PROCEDURE INFORMATION: Exam: XR Chest Exam date and time: 10/07/2021 11:46 AM Age: 26 years old Clinical indication: Pain; Shortness of breath; Other: Cp TECHNIQUE: Imaging protocol: XR of the chest. Views: 2 views. COMPARISON: CR XR CHEST 2V PA LATERAL 09/27/2021 5:25 PM FINDINGS: Lungs: Unremarkable. No consolidation. Pleural spaces: Unremarkable. No pleural effusion. No pneumothorax. Heart/Mediastinum: Unremarkable. No cardiomegaly. Bones/joints: Unremarkable. IMPRESSION: No acute findings. Dictated and Authenticated by: Maddi Live MD. Ordering:JOSEPH Ravi MD
[2021-10-07 12:17] LABS: ALT 48 U/L (16-63); AST 14 U/L (15-37); Albumin 3.8 g/dL (3.4-5.0); Alkaline Phosphatase 134 U/L (46-116); Anion Gap 5.1 mmol/L (3-11); BUN 9 mg/dL (7-18); Bilirubin, Total 0.4 mg/dL (0.2-1.0); CO2 32.9 mmol/L (21.0-32.0); Calcium 11.4 mg/dL (8.5-10.1); Chloride 103 mmol/L (98-107); Glucose 99 mg/dL (74-106); Sodium 141 mmol/L (136-145); Total Protein 7.7 g/dL (6.4-8.2); Troponin I < 50 ng/L (<or=60)
[2021-10-07 12:24] VITALS: BP 113/65; PULSE 68; RESP 17; TEMP 36.5; O2SAT 98
[2021-10-07] MEDS: LORazepam 0.5 MG TAB PO (12:55)
[2021-10-07] MEDS: LORazepam 0.5 MG TAB 2 MG PO (12:56)
--- NOTE | 2021-10-15 11:38 | NUR.NOTE ---
Nursing Note: Patient presented asking for a copy of his discharge instructions. They were printed and given to patient. Chris Vernon
== END 2021-10-07 13:00 | disposition home or self-care (01) ==
PROVIDERS: Emergency Provider Physician Assistant; PCP Family Medicine
DX: K92.1 Melena (principal); R07.89 Other chest pain; F41.9 Anxiety disorder, unspecified; G47.00 Insomnia, unspecified; R06.02 Shortness of breath
CPT/HCPCS: 36415; 80053; 93005; 99284; 71046; 83735; 84484; 85025; 93010; 99283

== ENCOUNTER 2021-10-20 21:43 | Emergency (ER) | payer MEDICAID, SELFPAY ==
[2021-10-20 22:04] VITALS: BP 100/64; PULSE 72; TEMP 37.1; O2SAT 98
--- NOTE | 2021-10-20 22:22 | W.ED.GENAD ---
Discharge Plan Disposition Patient Disposition: HOME Condition: Stable Discharge Details Clinical Impression: Depression, Anxiety Primary Care Provider: Brendon Vivar ED Provider: Lester Bundy Home Meds and New Rx's Prescriptions: No Action methadone 10 mg/5 mL solution 100 mg PO Q4H buspirone 10 mg tablet 10 mg PO BID Qty: 60 0RF doxepin 3 mg tablet 3 mg PO QHS PRN (Reason: sleep) Qty: 30 0RF Label Comments: no longer takes trazodone 50 mg tablet 50 mg PO QHS PRN (Reason: sleep) Qty: 30 0RF lorazepam 1 mg tablet 1 mg PO BID PRN (Reason: anxiety) Qty: 14 0RF Discharge Instructions Instructions: Depression (ED), Anxiety (ED) Additional Instructions: Please follow-up with with [facility] [employer] services Please refer to safety plan developed with [facility] services crisis screener. Please contact your primary care physician to arrange follow-up. Return to the ER immediately for any worsening or new concerning symptoms. Referrals: [facility] [Outside] Brendon Vivar DO [Primary Care Provider] - Discharge Data Discharge Date/Time-TO BE ENTERED AT DEPARTURE: 10/21/21 00:50 Medical Decision Making 26-year-old gentleman with past medical history of PTSD, stress, anxiety, insomnia, presents to the ER requesting a mental health evaluation for ongoing and worsening stress and anxiety causing him to have thoughts about not caring if he lives or not because he is so tired of what he is currently going through. He denies any SI or HI, reports no plan to harm himself. He does not feel as though he will require any hospitalization but would like to talk to mental health. Has no acute medical concerns or complaints, denies any alcohol or drug use. At this time I see no indication to initiate a CPSO. Will request a mental health evaluation. Medical Records Medical records reviewed: Yes I reviewed the patient's medical records. HPI General Mode of arrival: ambulatory. Date/Time Provider Initiated Documentation: 10/20/21 21:45. Limitations to Documentation: no limitations. Information obtained by: patient. HPI Narrative: This is a 26-year-old gentleman, past medical history of anxiety, stress, insomnia, PTSD, presenting to the ER requesting a mental health evaluation for ongoing and worsening anxiety that is making him feel hopeless and intrusive thoughts. At times he feels as though he just is sick and tired of it but he is denying any active SI or HI. He feels as though it would be very helpful to speak with someone. He denies recent illness or trauma. Patient states that he does not believe that he will require any inpatient hospitalization and if that is not what he is seeking by presenting to the ER tonight. He denies any alcohol or drug use Related Data Home Medications Medication Instructions Recorded Confirmed buspirone 10 mg tablet 10 mg PO BID #60 tabs 10/18/21 10/28/21 doxepin 3 mg tablet 3 mg PO QHS PRN sleep #30 tabs 10/18/21 10/25/21 methadone 10 mg/5 mL oral solution 100 mg PO Q4H 10/18/21 10/28/21 lorazepam 1 mg tablet 1 mg PO BID PRN anxiety #14 tabs 10/25/21 10/28/21 trazodone 50 mg tablet 50 mg PO QHS PRN sleep #30 tabs 10/25/21 10/28/21 Previous Rx's Medication Instructions Recorded buspirone 10 mg tablet 10 mg PO BID #60 tabs 10/18/21 doxepin 3 mg tablet 3 mg PO QHS PRN sleep #30 tabs 10/18/21 lorazepam 1 mg tablet 1 mg PO BID PRN anxiety #14 tabs 10/25/21 trazodone 50 mg tablet 50 mg PO QHS PRN sleep #30 tabs 10/25/21 Allergies Allergy/AdvReac Type Severity Reaction Status Date / Time codeine Allergy Intermediate Verified 10/28/21 13:22 General Stated Complaint: Anxiety ADRIANA: 2 Review of Systems Constitutional Constitutional: Denies fever(s) and Denies headache(s) ENT Ears, Nose, Mouth, and Throat: Denies headache(s) Cardiovascular Cardiovascular: Denies chest pain and Denies dyspnea Respiratory Respiratory: Denies dyspnea Gastrointestinal Gastrointestinal: Denies abdominal pain, Denies nausea and Denies vomiting Musculoskeletal Musculoskeletal: Denies back pain Integumentary/Breasts Skin/Breast: Denies rash Neurologic Neurologic: Denies headache(s) Psychiatric Psychiatric: Reports anxiety, Reports depression, Denies homicidal ideation and Denies suicidal ideation PFSH All Active Problems (Updated 10/28/21 @ 14:54 by Crow Gama NP) Arm pain, left (Acute) Anemia (Chronic) Elevated parathyroid hormone (Acute) Hyperlipidemia (Acute) Depression (Chronic) Anxiety (Chronic) Vomiting (Acute) Family history of coronary arteriosclerosis (Chronic) Father of IN at 50, mother had IN at 42 Family history of multiple endocrine neoplasia, type 1 (Acute) Severe anxiety with panic (Acute) Hypercalcemia (Acute) PTSD (post-traumatic stress disorder) (Acute) Acute viral syndrome (Acute) Blood in stool (Acute) Chronic chest pain (Acute) Stress (Acute) Anxiety (Chronic) Insomnia (Acute) Cellulitis (Acute) Medical History Anxiety in acute stress reaction Cocaine use History of heroin abuse Surgical History No significant past surgical history Family History Mother Anxiety Asthma Depression Sister Anxiety Depression Father Cancer lung & stomach Depression Diabetes Hypertension MEN 1 (multiple endocrine neoplasia) Social History Smoking/Tobacco Use Status: Never Smoking risk assessment performed?: Yes Alcohol Intake: never Drug use: Current Sobriety Substance use type: heroin Adopted: No Caregiver/Support person: No Foster care: No Household members: none Housing: house Number of Children: 0 Communication Needs: None Education Level: high school Do you need help understanding health information?: Never 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 and animals: Yes (Ally) Pets and animals: dog(s) Sexually active: No Do you think of yourself as: straight/heterosexual Current gender identity: male What is your relationship status?: How often do you talk on the phone with friends or family?: twice per week How often do you get together with friends or relatives?: never Do you belong to any clubs or organized social groups?: no Panel score (0-1 are the most socially isolated patients): 0 What type of physical activity do you participate in: walking Duration: 15-30 minutes/day Frequency: 5-6 times per week Maryam/Jainism: Amish Special maryam needs: No Seatbelt use: always Helmet use: Yes Helmet use: always Drive 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 dumpster 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 Exam Const General: cooperative, healthy appearing, comfortable and no acute distress Orientation: alert, awake and oriented x3 HENMT Head: normal to inspection, normocephalic and atraumatic Face and sinus: normal facial exam Mouth: moist mucous membranes Eyes General: appearance normal, both eyes and all related structures Conjunctivae: conjunctivae normal Neck Neck: normal visual inspection, trachea midline and supple Resp Effort & Inspection: normal respiratory effort and able to speak in complete sentences Auscultation: clear to auscultation bilaterally Cardio Rate: regular rate Rhythm: regular rhythm GI Palpation: soft and nontender Back/Spine/Pelvis Back: No back tenderness Skin General skin exam: no rashes or lesions noted Neuro General: patient alert, patient awake, patient oriented x3, moves all extremities and no focal motor deficits Cognition: normal cognition Speech: speech normal Gait: normal gait Sensory Exam: no sensory deficits noted Psych Appearance: grossly normal Mental Status: mental status grossly normal Speech and Movement: speech and movement normal Mood: anxious mood Affect: anxious affect Attitude: cooperative Thought Process: normal Thought Content: normal and suicidality Insight: fair Judgment: fair Course Vital Signs Vital signs: Vital Signs Temperature 37.1 C 10/20/21 22:04 Pulse 72 10/20/21 22:04 Blood Pressure 100/64 10/20/21 22:04 Pulse Oximetry 98 10/20/21 22:04 Temperature 37.1 C 10/20/21 22:04 Temperature Source Oral 10/20/21 22:04 Pulse 72 10/20/21 22:04 Respiratory Effort Non-Labored 10/20/21 22:18 Respiratory Depth Normal 10/20/21 22:18 Respiratory Pattern Normal 10/20/21 22:18 Blood Pressure 100/64 10/20/21 22:04 Pulse Oximetry 98 10/20/21 22:04 Oxygen Delivery Method Room Air 10/20/21 22:04 Oxygen Flow Rate 0 10/20/21 22:04 Pain Level 0 10/20/21 22:04 Sign Out Sign Out Data: Sign Out Comment: Worsening anxiety, intrusive thoughts. Requesting mental health evaluation. Denies SI or HI. Last updated by Barrington Arciniega PA at 10/20/21 23:23
--- NOTE | 2021-10-21 00:23 | W.EDPROG ---
Date of service: 10/21/21 Time of Service: 00:25 Medical Decision Making Care was signed out by ANDREW Arciniega with plan to follow-up on recommendations from crisis screener. Patient was assessed by crisis screener and determined safe for discharge with safety plan and outpatient follow-up to be scheduled. I spoke with the patient who is agreeable with this plan and understands he can return to the emergency department at anytime for worsening or new concerning symptoms. Sign Out Sign Out Data: Sign Out Comment: Worsening anxiety, intrusive thoughts. Requesting mental health evaluation. Denies SI or HI. Last updated by Barrington Arciniega PA at 10/20/21 23:23 Discharge Plan Disposition Patient Disposition: HOME Condition: Stable Discharge Details Clinical Impression: Depression, Anxiety Primary Care Provider: Brendon Vivar ED Provider: Barrington Arciniega Home Meds and New Rx's Prescriptions: No Action methadone 10 mg/5 mL solution 50 mg PO Q4H 0RF buspirone 10 mg tablet 10 mg PO BID Qty: 60 0RF doxepin 3 mg tablet 3 mg PO QHS PRN (Reason: sleep) Qty: 30 0RF lorazepam 1 mg tablet 1 mg PO BID PRN (Reason: anxiety) Qty: 14 0RF Discharge Instructions Instructions: Depression (ED), Anxiety (ED) Additional Instructions: Please follow-up with with [facility] services Please refer to safety plan developed with [facility] services crisis screener. Please contact your primary care physician to arrange follow-up. Return to the ER immediately for any worsening or new concerning symptoms. Referrals: [facility] [Outside] Brendon Vivar DO [Primary Care Provider] -
== END 2021-10-21 00:50 | disposition home or self-care (01) ==
PROVIDERS: Emergency Provider Student in an Organized Health Care Education/Training Program; PCP Family Medicine
DX: F32.A Depression, unspecified (principal); F41.9 Anxiety disorder, unspecified
CPT/HCPCS: 36415; 99283

== ENCOUNTER 2021-10-22 01:19 | Emergency (ER) | payer MEDICAID, SELFPAY ==
[2021-10-22 01:21] VITALS: BP 112/78; PULSE 86; RESP 18; TEMP 36.6; O2SAT 98
[2021-10-22 01:25] VITALS: RESP 18
--- NOTE | 2021-10-22 01:26 | ED.GENADUL_ITS ---
Discharge Plan Disposition Patient Disposition: HOME Condition: Improving Discharge Details Chief Complaint: GenMedical Clinical Impression: Vomiting Primary Care Provider: Brendon Vivar ED Provider: Ajay Kennedy Home Meds and New Rx's Prescriptions: No Action methadone 10 mg/5 mL solution 50 mg PO Q4H 0RF buspirone 10 mg tablet 10 mg PO BID Qty: 60 0RF doxepin 3 mg tablet 3 mg PO QHS PRN (Reason: sleep) Qty: 30 0RF lorazepam 1 mg tablet 1 mg PO BID PRN (Reason: anxiety) Qty: 14 0RF Discharge Instructions Instructions: Acute Nausea and Vomiting (ED) Additional Instructions: Please follow-up with your safety plan follow-up appointments today as scheduled. Please return to the emergency department if you develop any further nausea or vomiting or if you develop any symptoms worsening depression such as suicidal thoughts or homicidal thoughts or if you feel unsafe. Take your medications as prescribed. Medical Decision Making 26-year-old male history of anxiety, depression presents endorsing nausea in the setting of taking his gabapentin which is an old prescription that he used in the past to help him sleep, just wanted to sleep and get some rest, did not want to be alone tonight, denies SI denies HI. Does have a safety plan in place for psychiatric follow-up today. Patient is alert and oriented neurologically intact no signs of trauma hemodynamically stable. Nausea without active vomiting. Consider med reaction versus anxiety reaction versus unlikely toxicologic process. Patient took 4 mg of Ativan does feel slightly sleepy. Will allow patient to rest will provide Zofran ODT, close reassessment of patient's medical and psychiatric needs. Likely to be discharged this morning and encouraged to follow-up with safety plan. Low suspicion for infectious proc ess metabolic derangement dehydration or obstructive process. 6: 24 patient resting comfortably no acute distress. Feeling much better after some sleep/rest. No vomiting during his stay in the department. Denies any SI or HI. Is going to follow-up with his safety plan as scheduled today. Given strict return precautions for any worsening symptomatology specifically any worsening depression or if he develops any thoughts of harming himself or others. Patient has a contact that we will be able to pick him up this morning to get him home. Patient feels safe going home. HPI General Date/Time Provider Initiated Documentation: 10/22/21 01:24 . HPI Narrative: 26-year-old male history of depression, presents with nausea and vomiting, endorses he took his gabapentin which is an old prescription because in the past that has helped him sleep also took 4 mg of Ativan due to anxiety inability to sleep, endorses depression no definitive SI or HI. Believes the gabapentin has made him nauseous. Has been dealing with stressors in his personal life; endorses feeling safe at home however did not want to be alone tonight, has a safety plan placed for psychiatric Related Data Home Medications Medication Instructions Recorded Confirmed buspirone 10 mg tablet 10 mg PO BID #60 tab 10/18/21 10/18/21 doxepin 3 mg tablet 3 mg PO QHS PRN #30 tab 10/18/21 10/18/21 lorazepam 1 mg tablet 1 mg PO BID PRN #14 tab 10/18/21 10/18/21 methadone 10 mg/5 mL oral solution 50 mg PO Q4H ml 10/18/21 Previous Rx's Medication Instructions Recorded buspirone 10 mg tablet 10 mg PO BID #60 tab 10/18/21 doxepin 3 mg tablet 3 mg PO QHS PRN #30 tab 10/18/21 lorazepam 1 mg tablet 1 mg PO BID PRN #14 tab 10/18/21 Allergies Allergy/AdvReac Type Severity Reaction Status Date / Time codeine Allergy Intermediate Verified 10/22/21 01:28 General Stated Complaint: GenMedical ADRIANA: 3 Review of Systems Narrative: Review of Systems Constitutional: negative Eyes: negative ENT: negative Cardiovascular: negative Respiratory: negative Gastrointestinal: Nausea, vomiting : negative Musculoskeletal: negative Skin: negative Neurologic: negative Psych: Depression, anxiety PFSH All Active Problems (Updated 10/22/21 @ 06:27 by Ajay Kennedy MD) Depression (Chronic) Anxiety (Chronic) Vomiting (Acute) Family history of coronary arteriosclerosis (Chronic) Father of [place] at 50, mother had [place] at 42 Family history of multiple endocrine neoplasia, type 1 (Acute) Severe anxiety with panic (Acute) Hypercalcemia (Acute) PTSD (post-traumatic stress disorder) (Acute) Chest pain (Acute) Elevated liver enzymes (Acute) Acute viral syndrome (Acute) Blood in stool (Acute) Chronic chest pain (Acute) Stress (Acute) Anxiety (Chronic) Insomnia (Acute) Cellulitis (Acute) Abdominal pain (Acute) Medical History Anxiety in acute stress reaction Cocaine use History of heroin abuse Surgical History No significant past surgical history Family History Mother Anxiety Asthma Depression Sister Anxiety Depression Father Cancer lung & stomach Depression Diabetes Hypertension MEN 1 (multiple endocrine neoplasia) Social History Smoking/Tobacco Use Status: Never Smoking risk assessment performed?: Yes Alcohol Intake: never Drug use: Current Sobriety Substance use type: heroin Adopted: No Caregiver/Support person: No Foster care: No Household members: none Housing: house Number of Children: 0 Communication Needs: None Education Level: high school Do you need help understanding health information?: Never 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 and animals: Yes (Ally) Pets and animals: dog(s) Sexually active: No Do you think of yourself as: straight/heterosexual Current gender identity: male What is your relationship status?: How often do you talk on the phone with friends or family?: twice per week How often do you get together with friends or relatives?: never Do you belong to any clubs or organized social groups?: no Panel score (0-1 are the most socially isolated patients): 0 What type of physical activity do you participate in: walking Duration: 15-30 minutes/day Frequency: 5-6 times per week Maryam/Zoroastrianism: Buddhist Special maryam needs: No Seatbelt use: always Helmet use: Yes Helmet use: always Drive 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 school bus driver/teacher assistant: No Do you feel safe at home: Yes Do you feel safe in your relationship?: Yes Exam Narrative Exam Narrative: Physical Examination General: alert, awake, cooperative, resting comfortably, no acute distress HEENT: normocephalic, atraumatic; PERRL, EOM intact, conjunctiva normal; no nasal discharge; moist mucous membranes, oral and pharyngeal mucosa normal, tolerating secretions Neck: supple, trachea midline; full ROM Chest: normal to inspection Respiratory: normal respiratory effort, speaking in full sentences, clear to auscultation, no wheezing, rales or rhonchi Cardiac: regular rate, regular rhythm, S1S2 intact, no murmurs rubs or gallops GI: abdomen soft, non-tender, non-distended; no palpable mass or hepatosplenomegaly Skin: no lesions, rashes or trauma appreciated Neuro: AAOx3, normal speech, moving all extremities Psych: Sad appearing, anxiety, depression Course Vital Signs Vital signs: Vital Signs Temperature 36.6 C 10/22/21 01:21 Pulse 86 10/22/21 01:21 Respiratory Rate 18 10/22/21 01:21 Blood Pressure 112/78 10/22/21 01:21 Pulse Oximetry 98 10/22/21 01:21 Temperature 36.6 C 10/22/21 01:21 Temperature Source Oral 10/22/21 01:21 Pulse 86 10/22/21 01:21 Respiratory Rate 18 10/22/21 01:21 Blood Pressure 112/78 10/22/21 01:21 Blood Pressure Position Sitting 10/22/21 01:21 Pulse Oximetry 98 10/22/21 01:21 Oxygen Delivery Method Room Air 10/22/21 01:21 Oxygen Flow Rate 0 10/22/21 01:21 Pain Level 0 10/22/21 01:21
[2021-10-22] MEDS: Ondansetron O.D.T. 4 MG TABEF PO (01:36)
[2021-10-22 06:24] VITALS: BP 111/66; PULSE 92; RESP 18; O2SAT 94
== END 2021-10-22 06:29 | disposition home or self-care (01) ==
PROVIDERS: Emergency Provider Emergency Medicine; PCP Family Medicine
DX: R11.2 Nausea with vomiting, unspecified (principal)
CPT/HCPCS: 99283

== ENCOUNTER 2021-10-22 01:36 | Outpatient (CLI) | payer MEDICAID, SELFPAY ==
[2021-10-22 08:24] LABS: TSH (W/Ref FT4) 1.92 uIU/mL (0.36-3.74)
[2021-10-22 08:40] LABS: Calculated LDL 151 mg/dL (<100); Cholesterol 234 mg/dL (<200); HDL Cholesterol 65 mg/dL (40-60); Triglyceride 94 mg/dL (<150)
[2021-10-23 09:21] LABS: Parathyroid Hormone,Intact 208 pg/mL (19-88)
== END 2021-10-22 01:37 | disposition home or self-care (01) ==
LOC: LBO 01:36
PROVIDERS: PCP Family Medicine; Visit Provider Family Medicine
DX: E83.52 Hypercalcemia (principal); Z82.49 Family history of ischemic heart disease and other diseases of the circulatory system; Z83.41 Family history of multiple endocrine neoplasia [MEN] syndrome; F41.0 Panic disorder [episodic paroxysmal anxiety]; E78.00 Pure hypercholesterolemia, unspecified
CPT/HCPCS: 36415; 80061; 83970; 84443

== ENCOUNTER 2021-10-28 13:15 | Emergency (ER) | payer MEDICAID, SELFPAY ==
[2021-10-28 13:17] VITALS: BP 126/77; PULSE 72; RESP 16; TEMP 36.1; O2SAT 97
--- NOTE | 2021-10-28 13:45 | RT.EKG_ITS ---
APPROVED REPORT Exam: Resting ECG Reason for Exam: chest and left arm pain Patient Location: E HR:56 bpm ECG Measurements Heart Rate 56 AXIS RI 202 P 52 QRSd 90 QRS 67 QT 402 T 38 QTc 389 Conclusion Sinus bradycardia...rate< 60 Borderline prolonged RI interval...RI >202, V-rate 50- 90. Sinus. Normal axis. No STEMI. I have reviewed and interpreted ECG and agree with software generated interpretation.
[2021-10-28 14:15] LABS: Abs Immature Grans 0.01 10^3/uL (0.0-0.06); Absolute Basophil Count 0.04 10^3/uL (0.0-0.2); Absolute Eosinophil Count 0.24 10^3/uL (0.0-0.7); Absolute Lymphocyte Count 2.03 10^3/uL (1.2-3.4); Absolute Monocyte Count 0.71 10^3/uL (0.1-0.8); Absolute Neutrophil Count 4.34 10^3/uL (1.2-6.7); Basophils % 0.5; Eosinophils % 3.3; HGB 12.7 g/dL (13.5-17.5); Immature Grans % 0.1; Lymphocytes % 27.5; MCH 29.7 pg (27.0-33.0); MCHC 32.6 % (32.0-36.0); MCV 91 fL (80-95); MPV 10.5 fL (8.0-11.0); Monocytes % 9.6; Platelet Count 327 10^3/uL (130-400); RBC 4.28 10^6/uL (4.36-5.78); RDW 11.3 % (11.8-14.1); RDW-SD 37.7 fL; WBC 7.37 10^3/uL (4.4-10.8)
[2021-10-28 14:31] LABS: ALT 27 U/L (16-63); AST 17 U/L (15-37); Albumin 3.4 g/dL (3.4-5.0); Alkaline Phosphatase 136 U/L (46-116); Anion Gap 3.9 mmol/L (3-11); BUN 9 mg/dL (7-18); Bilirubin, Total 0.4 mg/dL (0.2-1.0); CO2 31.1 mmol/L (21.0-32.0); Calcium 10.5 mg/dL (8.5-10.1); Chloride 104 mmol/L (98-107); Glucose 95 mg/dL (74-106); Potassium 4.1 mmol/L (3.5-5.1); Sodium 139 mmol/L (136-145); Total Protein 7.2 g/dL (6.4-8.2); Troponin I < 50 ng/L (<or=60)
--- NOTE | 2021-10-28 14:49 | ED.GENADUL_ITS ---
Discharge Plan Disposition Patient Disposition: HOME Condition: Stable Discharge Details Clinical Impression: Arm pain, left, Hypercalcemia, Anemia Primary Care Provider: Brendon Vivar ED Provider: Crow Gama Home Meds and New Rx's Prescriptions: Continued methadone 10 mg/5 mL solution 100 mg PO Q4H buspirone 10 mg tablet 10 mg PO BID Qty: 60 0RF doxepin 3 mg tablet 3 mg PO QHS PRN (Reason: sleep) Qty: 30 0RF Label Comments: no longer takes trazodone 50 mg tablet 50 mg PO QHS PRN (Reason: sleep) Qty: 30 0RF lorazepam 1 mg tablet 1 mg PO BID PRN (Reason: anxiety) Qty: 14 0RF Discharge Instructions Additional Instructions: Your emergency evaluation today was unremarkable for any life-threatening cause. Given that this is similar to previous instances I am reassured with your labs and EKG today. If you have any change in your symptoms feel free to return the emergency department otherwise continue the evaluation you are already undergoing for your parathyroid as this may be contributing to your symptoms Referrals: Brendon Vivar DO [Primary Care Provider] - (As previously arranged) Discharge Data Discharge Date/Time-TO BE ENTERED AT DEPARTURE: 10/28/21 15:05 Medical Decision Making Patient presenting to the emergency department for chief complaint of left arm neck and chest pain. Patient states this is similar to previous presentations. Patient denies any other new or changes in symptoms. Physical exam is unremarkable for acute cause. Reviewed history and spoke with patient about recent parathyroid elevated labs and he states he is undergoing evaluation by primary care provider for possible tumor which his father also had and needed surgery. No acute signs of hypercalcemia on exam but will plan on checking labs and performing EKG. Labs are reviewed and show a anemia near baseline, CBC is unremarkable except except for slightly elevated calcium at 10.5 but no signs of emergent hypercalcemia, alk phos is slightly elevated at 136. Troponin is negative and EKG shows sinus bradycardia with a rate of 56, no acute signs of ischemia or worrisome findings. Given that pain has not changed I do feel that there is potential for slight underlying anxiety given that symptoms started around the same time he was informed of possible tumor. While patient denies this at this time I do think this is a contributing factor given patient's history. Patient encouraged to continue to take his medications and was reassured on work-up for emergent findings today. After discussion of diagnosis and plan of care patient has no further needs, questions, or concerns and states clear understanding to return to the emergency department for any worsening symptoms. Lab Data Lab results reviewed: Yes I reviewed the patient's lab results. Labs: Laboratory Tests Range/Units 10/28/21 10/28/21 14:08 14:08 WBC (4.4-10.8) 10^3/uL 7.37 RBC (4.36-5.78) 10^6/uL 4.28 L Hgb (13.5-17.5) g/dL 12.7 L Hct (40.0-50.0) % 39.0 L MCV (80-95) fL 91 MCH (27.0-33.0) pg 29.7 MCHC (32.0-36.0) % 32.6 RDW (11.8-14.1) % 11.3 L Plt Count (130-400) 10^3/uL 327 MPV (8.0-11.0) fL 10.5 Immature Gran % 0.1 Neutrophils % 59.0 Lymphocytes % 27.5 Monocytes % 9.6 Eosinophils % 3.3 Basophils % 0.5 Nucleated RBC % (0.0-0.3) % 0.0 Absolute Neutrophils (1.2-6.7) 10^3/uL 4.34 Absolute Lymphocytes (1.2-3.4) 10^3/uL 2.03 Absolute Monocytes (0.1-0.8) 10^3/uL 0.71 Absolute Eosinophils (0.0-0.7) 10^3/uL 0.24 Absolute Basophils (0.0-0.2) 10^3/uL 0.04 Sodium (136-145) mmol/L 139 Potassium (3.5-5.1) mmol/L 4.1 Chloride (98-107) mmol/L 104 Carbon Dioxide (21.0-32.0) mmol/L 31.1 Anion Gap (3-11) mmol/L 3.9 BUN (7-18) mg/dL 9 Creatinine (0.70-1.30) mg/dL 1.0 Estimated GFR/1.73 m2 (mL/min/1.73m2) >= 60.00 Glucose (74-106) mg/dL 95 Calcium (8.5-10.1) mg/dL 10.5 H Total Bilirubin (0.2-1.0) mg/dL 0.4 AST (15-37) U/L 17 ALT (16-63) U/L 27 Alkaline Phosphatase (46-116) U/L 136 H Troponin I (<or=60) ng/L < 50 Total Protein (6.4-8.2) g/dL 7.2 Albumin (3.4-5.0) g/dL 3.4 HPI General Mode of arrival: ambulatory . Date/Time Provider Initiated Documentation: 10/28/21 13:32 . Limitations to Documentation: no limitations . Information obtained by: patient, RN notes reviewed and old records reviewed . History of Present Illness 26 year old M presents to the emergency department with the chief complaint of Left arm, neck, and shoulder pain, described as moderate and similar to prior episodes, with intensity rated at 4. Quality is described as aching, and is localized to the left and upper extremity. Patient started experiencing this day(s) (3) and it has been constant. No relieving factors improve symptom(s), No exacerbating factors reported . Patient notes no other symptoms.. Patient did receive the following treatments prior to arrival, none Related Data Home Medications Medication Instructions Recorded Confirmed buspirone 10 mg tablet 10 mg PO BID #60 tabs 10/18/21 10/28/21 doxepin 3 mg tablet 3 mg PO QHS PRN sleep #30 tabs 10/18/21 10/25/21 methadone 10 mg/5 mL oral solution 100 mg PO Q4H 10/18/21 10/28/21 lorazepam 1 mg tablet 1 mg PO BID PRN anxiety #14 tabs 10/25/21 10/28/21 trazodone 50 mg tablet 50 mg PO QHS PRN sleep #30 tabs 10/25/21 10/28/21 Previous Rx's Medication Instructions Recorded buspirone 10 mg tablet 10 mg PO BID #60 tabs 10/18/21 doxepin 3 mg tablet 3 mg PO QHS PRN sleep #30 tabs 10/18/21 lorazepam 1 mg tablet 1 mg PO BID PRN anxiety #14 tabs 10/25/21 trazodone 50 mg tablet 50 mg PO QHS PRN sleep #30 tabs 10/25/21 Allergies Allergy/AdvReac Type Severity Reaction Status Date / Time codeine Allergy Intermediate Verified 10/28/21 13:22 General Stated Complaint: GenMedical ADRIANA: 3 Review of Systems Constitutional Constitutional: Denies chills, Denies fever(s) and Denies malaise ENT Ears, Nose, Mouth, and Throat: Reports neck pain Cardiovascular Cardiovascular: Reports as per HPI, Reports chest pain, Denies chest pain with activity, Denies syncope, Denies irregular heart rhythm, Denies palpitations and Denies dyspnea Respiratory Respiratory: Denies cough, Denies hemoptysis and Denies dyspnea Gastrointestinal Gastrointestinal: Denies abdominal pain, Denies nausea and Denies vomiting Musculoskeletal Musculoskeletal: Reports as per HPI, Denies back pain, Denies joint swelling, Denies limited range of motion, Denies muscle cramps, Denies muscle weakness, Reports neck pain, Denies numbness and Denies tingling Integumentary/Breasts Skin/Breast: Denies rash Neurologic Neurologic: Denies syncope, Denies numbness and Denies tingling Psychiatric Psychiatric: Denies anxiety Endocrine Endocrine: Denies palpitations PFSH All Active Problems Arm pain, left (Acute) Anemia (Chronic) Elevated parathyroid hormone (Acute) Hyperlipidemia (Acute) Depression (Chronic) Anxiety (Chronic) Vomiting (Acute) Family history of coronary arteriosclerosis (Chronic) Father of [place] at 50, mother had [place] at 42 Family history of multiple endocrine neoplasia, type 1 (Acute) Severe anxiety with panic (Acute) Hypercalcemia (Acute) PTSD (post-traumatic stress disorder) (Acute) Acute viral syndrome (Acute) Blood in stool (Acute) Chronic chest pain (Acute) Stress (Acute) Anxiety (Chronic) Insomnia (Acute) Cellulitis (Acute) Medical History Anxiety in acute stress reaction Cocaine use History of heroin abuse Surgical History No significant past surgical history Family History Mother Anxiety Asthma Depression Sister Anxiety Depression Father Cancer lung & stomach Depression Diabetes Hypertension MEN 1 (multiple endocrine neoplasia) Social History Smoking/Tobacco Use Status: Never Smoking risk assessment performed?: Yes Alcohol Intake: never Drug use: Current Sobriety Substance use type: heroin Adopted: No Caregiver/Support person: No Foster care: No Household members: none Housing: house Number of Children: 0 Communication Needs: None Education Level: high school Do you need help understanding health information?: Never 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 and animals: Yes (Ally) Pets and animals: dog(s) Sexually active: No Do you think of yourself as: straight/heterosexual Current gender identity: male What is your relationship status?: How often do you talk on the phone with friends or family?: twice per week How often do you get together with friends or relatives?: never Do you belong to any clubs or organized social groups?: no Panel score (0-1 are the most socially isolated patients): 0 What type of physical activity do you participate in: walking Duration: 15-30 minutes/day Frequency: 5-6 times per week Maryam/Anglican: Mormon Special maryam needs: No Seatbelt use: always Helmet use: Yes Helmet use: always Drive 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 buggy 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 Exam Const General: cooperative, healthy appearing, comfortable, no acute distress, not diaphoretic and not ill appearing Nutritional Appearance: average body habitus Orientation: alert, awake and oriented x3 Limitations: mental status not altered Neck Neck: normal visual inspection, full ROM, no lymphadenopathy, trachea midline, supple, no anterior neck swelling, nontender, no torticollis and no JVD Thyroid: thyroid normal Resp Effort & Inspection: normal respiratory effort and able to speak in complete sentences Auscultation: clear to auscultation bilaterally Cardio Jugular venous pressure: no JVD Palpation: normal PMI Rate: regular rate Rhythm: regular rhythm Heart Sounds: S1 normal, S2 normal, no click, no gallops, no murmurs and no rubs Pulses: radial pulses present bilaterally 2+ Skin General skin exam: no rashes or lesions noted Neuro General: patient alert, patient awake, patient oriented x3, tone normal and moves all extremities Extrem General: no joint enlargement and normal gait Right upper extremity: normal to inspection, full ROM and normal capillary refill Left upper extremity: normal to inspection, full ROM and normal capillary refill Course Vital Signs Vital signs: Vital Signs Temperature 36.1 C L 10/28/21 13:17 Pulse 72 10/28/21 13:17 Respiratory Rate 16 10/28/21 13:17 Blood Pressure 126/77 10/28/21 13:17 Pulse Oximetry 97 10/28/21 13:17 Temperature 36.1 C L 10/28/21 13:17 Temperature Source Skin 10/28/21 13:17 Pulse 72 10/28/21 13:17 Respiratory Rate 16 10/28/21 13:17 Respiratory Effort 10/28/21 13:23 Blood Pressure 126/77 10/28/21 13:17 Blood Pressure Position Sitting 10/28/21 13:17 Pulse Oximetry 97 10/28/21 13:17 Oxygen Delivery Method Room Air 10/28/21 13:17 Oxygen Flow Rate 0 10/28/21 13:17 Pain Level 4 10/28/21 13:17 Comment 10/28/21 13:17 Lab/Test Results Lab/Test Results: Laboratory Tests Range/Units 10/28/21 10/28/21 14:08 14:08 WBC (4.4-10.8) 10^3/uL 7.37 RBC (4.36-5.78) 10^6/uL 4.28 L Hgb (13.5-17.5) g/dL 12.7 L Hct (40.0-50.0) % 39.0 L MCV (80-95) fL 91 MCH (27.0-33.0) pg 29.7 MCHC (32.0-36.0) % 32.6 RDW (11.8-14.1) % 11.3 L Plt Count (130-400) 10^3/uL 327 MPV (8.0-11.0) fL 10.5 Immature Gran % 0.1 Neutrophils % 59.0 Lymphocytes % 27.5 Monocytes % 9.6 Eosinophils % 3.3 Basophils % 0.5 Nucleated RBC % (0.0-0.3) % 0.0 Absolute Neutrophils (1.2-6.7) 10^3/uL 4.34 Absolute Lymphocytes (1.2-3.4) 10^3/uL 2.03 Absolute Monocytes (0.1-0.8) 10^3/uL 0.71 Absolute Eosinophils (0.0-0.7) 10^3/uL 0.24 Absolute Basophils (0.0-0.2) 10^3/uL 0.04 Sodium (136-145) mmol/L 139 Potassium (3.5-5.1) mmol/L 4.1 Chloride (98-107) mmol/L 104 Carbon Dioxide (21.0-32.0) mmol/L 31.1 Anion Gap (3-11) mmol/L 3.9 BUN (7-18) mg/dL 9 Creatinine (0.70-1.30) mg/dL 1.0 Estimated GFR/1.73 m2 (mL/min/1.73m2) >= 60.00 Glucose (74-106) mg/dL 95 Calcium (8.5-10.1) mg/dL 10.5 H Total Bilirubin (0.2-1.0) mg/dL 0.4 AST (15-37) U/L 17 ALT (16-63) U/L 27 Alkaline Phosphatase (46-116) U/L 136 H Troponin I (<or=60) ng/L < 50 Total Protein (6.4-8.2) g/dL 7.2 Albumin (3.4-5.0) g/dL 3.4
[2021-10-28 15:06] VITALS: BP 120/79; PULSE 67; RESP 16; O2SAT 98
== END 2021-10-28 15:05 | disposition home or self-care (01) ==
PROVIDERS: Emergency Provider Nurse Practitioner Family; PCP Family Medicine
DX: M79.622 Pain in left upper arm (principal); R07.9 Chest pain, unspecified; E83.52 Hypercalcemia; D64.9 Anemia, unspecified
CPT/HCPCS: 36415; 80053; 93005; 99283; 84484; 85025; 93010

== ENCOUNTER 2021-11-07 02:36 | Emergency (ER) | payer MEDICAID, SELFPAY ==
[2021-11-07 02:44] VITALS: BP 136/81; PULSE 98; RESP 18; TEMP 36.6; O2SAT 99
--- NOTE | 2021-11-07 03:06 | ED.GENADUL_ITS ---
Discharge Plan Disposition Patient Disposition: HOME Condition: Good Discharge Details Clinical Impression: Pneumonia Primary Care Provider: Brendon Vivar ED Provider: Richy Eagle Home Meds and New Rx's Prescriptions: New azithromycin 250 mg tablet 250 mg PO DAILY 4 Days Qty: 4 0RF Rx Instructions: start on day 2 of therapy No Action prednisone 50 mg tablet 50 mg PO DAILY Qty: 7 0RF methadone 10 mg/5 mL solution 100 mg PO Q4H buspirone 10 mg tablet 10 mg PO BID Qty: 60 0RF doxepin 3 mg tablet 3 mg PO QHS PRN (Reason: sleep) Qty: 30 0RF Label Comments: no longer takes trazodone 50 mg tablet 50 mg PO QHS PRN (Reason: sleep) Qty: 30 0RF lorazepam 1 mg tablet 1 mg PO BID PRN (Reason: anxiety) Qty: 14 0RF Discharge Instructions Instructions: Pneumonia (ED) Additional Instructions: At this time your symptoms appear consistent with mild community-acquired pneumonia. Please take the antibiotic as directed. The first dose is been given to you here, and the remainder of your prescription has been sent to your pharmacy on file. Please use the inhaler, 2 puffs every 4-6 hours as needed for any shortness of breath. If you notice any worsening of your symptoms, or any new symptoms such as vomiting, diarrhea, fever, chills, shortness of breath, chest pain, numbness, weakness, or fainting , please return immediately to the emergency department for reevaluation. Please follow up with your primary care provider as soon as possible for reassessment and reevaluation. As always, it was a pleasure participating in your medical care today. Referrals: Brendon Vivar DO [Primary Care Provider] - Discharge Data Discharge Date/Time-TO BE ENTERED AT DEPARTURE: 11/07/21 03:14 Medical Decision Making 26-year-old male with a past medical history of anxiety, previous cocaine and heroin use in the past, current methadone use, depression, high cholesterol, presents today for evaluation of cough, sore throat, runny nose, congestion and fever. Patient states her symptoms have been present for the last 36 hours. He denies any chest pain or shortness of breath. He does admit to productivity of his cough with green sputum. He does not smoke. He has received his COVID shot, as well as his flu shot last fall. He denies any other sick contacts. He denies any neck pain. No other complaints at this time. No other modifying factors. Physical exam demonstrates minimal crackles in the right lower lung field, minimal scattered wheeze. No meningeal chills. Posterior oropharynx is unremarkable. Strep test was ordered and is negative. We will test for COVID and flu. Additionally the patient's symptoms appear consistent with a mild bacterial pneumonia with his wheeze and crackle in the right lower lung. We will treat with azithromycin. He did have a single episode of vomiting today, so I do not think that doxycycline would be beneficial for his stomach. Discussed red flags which return. Patient demonstrates no hypoxemia, fever, or profound tachycardia. We will give azithromycin dose here, and an albuterol inhaler for home use. Short course of azithromycin I feel is reasonable with his low to moderate dose of methadone at this stage. I have extensively reviewed the treatment plan and discharge instructions with the patient. I have addressed all patient concerns at this time. The patient was made aware of what symptoms to monitor for that would warrant a return to the emergency department. Discussed the plan with the patient, they demonstrate verbal understanding and agreement with our assessment and plan at this time. The documentation in this chart was dictated using [employer] dictation software. Please excuse any dictation errors. COVID flu and RSV are all negative. HPI General Date/Time Provider Initiated Documentation: 11/07/21 02:48 . HPI Narrative: 26-year-old male with a past medical history of anxiety, previous cocaine and heroin use in the past, current methadone use, depression, high cholesterol, presents today for evaluation of cough, sore throat, runny nose, congestion and fever. Patient states her symptoms have been present for the last 36 hours. He denies any chest pain or shortness of breath. He does admit to productivity of his cough with green sputum. He does not smoke. He has received his COVID shot, as well as his flu shot last fall. He denies any other sick contacts. He denies any neck pain. No other complaints at this time. No other modifying factors. Related Data Home Medications Medication Instructions Recorded Confirmed buspirone 10 mg tablet 10 mg PO BID #60 tabs 10/18/21 11/05/21 doxepin 3 mg tablet 3 mg PO QHS PRN sleep #30 tabs 10/18/21 11/05/21 methadone 10 mg/5 mL oral solution 100 mg PO Q4H 10/18/21 11/05/21 lorazepam 1 mg tablet 1 mg PO BID PRN anxiety #14 tabs 10/25/21 11/05/21 trazodone 50 mg tablet 50 mg PO QHS PRN sleep #30 tabs 10/25/21 11/05/21 prednisone 50 mg tablet 50 mg PO DAILY #7 tabs 11/05/21 11/05/21 azithromycin 250 mg tablet 250 mg PO DAILY 4 days #4 tabs 11/07/21 Previous Rx's Medication Instructions Recorded buspirone 10 mg tablet 10 mg PO BID #60 tabs 10/18/21 doxepin 3 mg tablet 3 mg PO QHS PRN sleep #30 tabs 10/18/21 lorazepam 1 mg tablet 1 mg PO BID PRN anxiety #14 tabs 10/25/21 trazodone 50 mg tablet 50 mg PO QHS PRN sleep #30 tabs 10/25/21 prednisone 50 mg tablet 50 mg PO DAILY #7 tabs 11/05/21 azithromycin 250 mg tablet 250 mg PO DAILY 4 days #4 tabs 11/07/21 Allergies Allergy/AdvReac Type Severity Reaction Status Date / Time codeine Allergy Intermediate Verified 11/07/21 02:47 General Stated Complaint: Fever ADRIANA: 4 Review of Systems All systems reviewed & are unremarkable except as noted in HPI and below PFSH All Active Problems Pneumonia (Acute) Arm pain, left (Acute) Anemia (Chronic) Elevated parathyroid hormone (Acute) Hyperlipidemia (Acute) Depression (Chronic) Anxiety (Chronic) Vomiting (Acute) Family history of coronary arteriosclerosis (Chronic) Father of [place] at 50, mother had [place] at 42 Family history of multiple endocrine neoplasia, type 1 (Acute) Severe anxiety with panic (Acute) Hypercalcemia (Acute) PTSD (post-traumatic stress disorder) (Acute) Cellulitis (Acute) Medical History Anxiety in acute stress reaction Cocaine use History of heroin abuse Surgical History No significant past surgical history Family History Mother Anxiety Asthma Depression Sister Anxiety Depression Father Cancer lung & stomach Depression Diabetes Hypertension MEN 1 (multiple endocrine neoplasia) Social History Smoking/Tobacco Use Status: Never Smoking risk assessment performed?: Yes Alcohol Intake: never Drug use: Current Sobriety Substance use type: heroin Adopted: No Caregiver/Support person: No Foster care: No Household members: none Housing: house Number of Children: 0 Communication Needs: None Education Level: high school Do you need help understanding health information?: Never 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 and animals: Yes (Ally) Pets and animals: dog(s) Sexually active: No Do you think of yourself as: straight/heterosexual Current gender identity: male What is your relationship status?: How often do you talk on the phone with friends or family?: twice per week How often do you get together with friends or relatives?: never Do you belong to any clubs or organized social groups?: no Panel score (0-1 are the most socially isolated patients): 0 What type of physical activity do you participate in: walking Duration: 15-30 minutes/day Frequency: 5-6 times per week Maryam/Restorationist: Adventist Special maryam needs: No Seatbelt use: always Helmet use: Yes Helmet use: always Drive 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 delivery driver/customer service: No Do you feel safe at home: Yes Do you feel safe in your relationship?: Yes Exam Narrative Exam Narrative: 1.Const: Well-nourished, Well-developed, appearing stated age 2.Eyes: PERRL, no conjunctival injection, and symmetrical lids. 3.ENT: Atraumatic external nose and ears. Moist MM. Neck: Symmetric, trachea midline, No thyromegaly. No erythema in the posterior oropharynx. No tonsillar exudate. Patient demonstrates good movement of cervical neck. There is no nuchal rigidity, no nuchal tenderness. Patient is able to flex the neck without any difficulty or significant pain. Negative Kernig's and Brudzinski sign. 4.CVS: +S1/S2, No murmurs or gallops. Peripheral pulses 2+ and equal in all extremities. Brisk capillary refill in all extremities. 5.RESP: Unlabored respiratory effort. Mild crackles on the right lower lung field, minimal scattered wheezes well. No rhonchi. 6.GI: Soft, Nontender/Nondistended, No hepatosplenomegaly. No guarding or rebound. 7.MSK: Normocephalic/Atraumatic, Extremities w/o deformity or ttp No cyanosis or clubbing, Normal movement of all extremities 8.Skin: Warm, Dry. No rashes or lesions. 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 Sensation grossly intact, no focal neurologic deficits. 10.Psych: (AAO) x3. Appropriate mood and affect Course Vital Signs Vital signs: Vital Signs Temperature 36.6 C 11/07/21 02:44 Pulse 98 H 11/07/21 02:44 Respiratory Rate 18 11/07/21 02:44 Blood Pressure 136/81 11/07/21 02:44 Pulse Oximetry 99 11/07/21 02:44 Temperature 36.6 C 11/07/21 02:44 Temperature Source Oral 11/07/21 02:44 Pulse 98 H 11/07/21 02:44 Respiratory Rate 18 11/07/21 02:44 Respiratory Effort 11/07/21 02:46 Blood Pressure 136/81 11/07/21 02:44 Blood Pressure Position Sitting 11/07/21 02:44 Pulse Oximetry 99 11/07/21 02:44 Oxygen Delivery Method Room Air 11/07/21 02:44 Oxygen Flow Rate 0 11/07/21 02:44 Pain Level 5 11/07/21 02:44 Lab/Test Results Lab/Test Results: POC Strep Test-DEBBY(Rapid) Start: 11/07/21 02:48 Freq: .Rapid Strep Test Status: Active Protocol: Document 11/07/21 03:01 TM (Rec: 11/07/21 03:01 [id number]) Strep test-DEBBY(Rapid)-POC POC-Strep test-DEBBY (Rapid) Negative POC-Strep test-DEBBY (Rapid) Negative
[2021-11-07] MEDS: Albuterol HFA 8 GM 60 PUFF INH IH (03:13)
[2021-11-07] MEDS: Inhaler, Assist Device 1 EACH MC (03:14)
[2021-11-07] MEDS: Azithromycin 250 MG TAB 500 MG PO (03:14)
[2021-11-07 03:41] LABS: COVID-19 PCR Negative (Negative); Influenza A PCR Negative (Negative); Influenza B PCR Negative (Negative); RSV PCR Negative (Negative)
[2021-11-07 03:43] LABS: Source Nasopharynx
== END 2021-11-07 03:14 | disposition home or self-care (01) ==
PROVIDERS: Emergency Provider Student in an Organized Health Care Education/Training Program; PCP Family Medicine
DX: J18.9 Pneumonia, unspecified organism (principal)
CPT/HCPCS: 87637; 87880; 99283; 87081

== ENCOUNTER 2021-11-12 06:49 | Emergency (ER) | payer MEDICAID, SELFPAY ==
[2021-11-12] VITALS (30 sets, daily range): BP systolic 99–119; BP diastolic 48–71; PULSE 59–88; RESP 11–16; TEMP 36.8; O2SAT 95–100
--- NOTE | 2021-11-12 06:45 | RT.EKG_ITS ---
APPROVED REPORT Exam: Resting ECG Reason for Exam: chest pain Patient Location: E HR:76 bpm ECG Measurements Heart Rate 76 AXIS DE 194 P 47 QRSd 93 QRS 63 QT 355 T 30 QTc 400 Conclusion Sinus rhythm...normal P axis, V-rate 60- 99 Physician: no stemi. no significant st elevation or depression
--- NOTE | 2021-11-12 07:10 | ED.GENADUL_ITS ---
Discharge Plan Disposition Patient Disposition: STILL A PATIENT Condition: Stable Discharge Details Clinical Impression: Left-sided chest pain Primary Care Provider: Brendon Vivar ED Provider: Richy Eagle Home Meds and New Rx's Prescriptions: No Action methadone 10 mg/5 mL solution 100 mg PO Q4H buspirone 10 mg tablet 10 mg PO BID Qty: 60 0RF trazodone 50 mg tablet 50 mg PO QHS PRN (Reason: sleep) Qty: 30 0RF lorazepam 1 mg tablet 1 mg PO BID PRN (Reason: anxiety) Qty: 14 0RF Medical Decision Making 26-year-old male with a past medical history of PTSD, depression, high cholesterol, anxiety, methadone use, who presents today for evaluation of left- sided chest pain. Patient was here about 5 days ago at which time he was diagnosed with pneumonia. He was started on azithromycin. Patient states that his cough is resolved since then he has been doing well however he developed mild left-sided chest pain this morning at 3:30 AM. It woke him sleep. He states he classically gets chest pain with anxiety attacks but this felt different. It was sharp in nature, and radiated to his left armpit, and was accompanied by mild achiness in the entire left side of his body. He states he has been having milder symptoms of this pain on and off for the last few months. He denies any significant exertional component. He does admit to it feeling worse when he breathes deeply. It is also made worse when he leans forward. He denies any numbness or tingling. He denies any vomiting or diarrhea. He denies any fever or chills. He denies previous history of blood clots. No other complaints at this time. No other modifying factors. Exam demonstrates reproducible tenderness over the lateral insertion components of the pectoralis major minor muscle on the left. Vascular exam is normal, brisk capillary refill and +2 pulses bilaterally for the upper extremities and lower extremities. Lungs are clear. Bedside limited echo demonstrates normal ejection fraction, no evidence of severe right-sided heart strain. No peric ardial effusion. Differential includes anxiety component, musculoskeletal strain. No evidence of significant pneumothorax on bedside ultrasound. Cardiac etiology is of concern but less likely given his age and lack of risk factors. PE is also considered. We will get a D-dimer and proBNP to evaluate for signs of strain. We will give Toradol, will monitor closely and reassess. Case will be signed out to my colleague Dr. Mecca Bundy for follow-up on labs and imaging. EKG 6: 57 Sinus rhythm, no significant ST elevations or depressions. No STEMI. HPI General Date/Time Provider Initiated Documentation: 11/12/21 06:56 . HPI Narrative: 26-year-old male with a past medical history of PTSD, depression, high cholesterol, anxiety, methadone use, who presents today for evaluation of left- sided chest pain. Patient was here about 5 days ago at which time he was diagno sed with pneumonia. He was started on azithromycin. Patient states that his cough is resolved since then he has been doing well however he developed mild left-sided chest pain this morning at 3:30 AM. It woke him sleep. He states he classically gets chest pain with anxiety attacks but this felt different. It was sharp in nature, and radiated to his left armpit, and was accompanied by mild achiness in the entire left side of his body. He states he has been having milder symptoms of this pain on and off for the last few months. He denies any significant exertional component. He does admit to it feeling worse when he breathes deeply. It is also made worse when he leans forward. He denies any numbness or tingling. He denies any vomiting or diarrhea. He denies any fever or chills. He denies previous history of blood clots. No other complaints at this time. No other modifying factors. Related Data Home Medications Medication Instructions Recorded Confirmed buspirone 10 mg tablet 10 mg PO BID #60 tabs 10/18/21 11/08/21 methadone 10 mg/5 mL oral solution 100 mg PO Q4H 10/18/21 11/08/21 lorazepam 1 mg tablet 1 mg PO BID PRN anxiety #14 tabs 10/25/21 11/08/21 trazodone 50 mg tablet 50 mg PO QHS PRN sleep #30 tabs 10/25/21 11/08/21 Previous Rx's Medication Instructions Recorded buspirone 10 mg tablet 10 mg PO BID #60 tabs 10/18/21 lorazepam 1 mg tablet 1 mg PO BID PRN anxiety #14 tabs 10/25/21 trazodone 50 mg tablet 50 mg PO QHS PRN sleep #30 tabs 10/25/21 Allergies Allergy/AdvReac Type Severity Reaction Status Date / Time codeine Allergy Intermediate Verified 11/12/21 07:01 General Stated Complaint: Chest Pain ADRIANA: 2 Review of Systems All systems reviewed & are unremarkable except as noted in HPI and below PFSH All Active Problems (Updated 11/12/21 @ 07:16 by Richy Eagle DO) Pneumonia (Acute) Left-sided chest pain (Acute) Arm pain, left (Acute) Anemia (Chronic) Elevated parathyroid hormone (Acute) Hyperlipidemia (Acute) Depression (Chronic) Anxiety (Chronic) Vomiting (Acute) Family history of coronary arteriosclerosis (Chronic) Father of [place] at 50, mother had [place] at 42 Family history of multiple endocrine neoplasia, type 1 (Acute) Severe anxiety with panic (Acute) Hypercalcemia (Acute) PTSD (post-traumatic stress disorder) (Acute) Cellulitis (Acute) Medical History Anxiety in acute stress reaction Cocaine use History of heroin abuse Surgical History No significant past surgical history Family History Mother Anxiety Asthma Depression Sister Anxiety Depression Father Cancer lung & stomach Depression Diabetes Hypertension MEN 1 (multiple endocrine neoplasia) Social History Smoking/Tobacco Use Status: Never Smoking risk assessment performed?: Yes Alcohol Intake: never Drug use: Current Sobriety Substance use type: crack/cocaine and heroin Adopted: No Caregiver/Support person: No Foster care: No Household members: none Housing: house Number of Children: 0 Communication Needs: None Education Level: high school Do you need help understanding health information?: Never 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 and animals: Yes (Ally) Pets and animals: dog(s) Sexually active: No Do you think of yourself as: straight/heterosexual Current gender identity: male What is your relationship status?: How often do you talk on the phone with friends or family?: twice per week How often do you get together with friends or relatives?: never Do you belong to any clubs or organized social groups?: no Panel score (0-1 are the most socially isolated patients): 0 What type of physical activity do you participate in: walking Duration: 15-30 minutes/day Frequency: 5-6 times per week Maryam/Holiness: Bahai Special maryam needs: No Seatbelt use: always Helmet use: Yes Helmet use: always Drive 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 driver sales: No Do you feel safe at home: Yes Do you feel safe in your relationship?: Yes Exam Narrative Exam Narrative: 1.Const: Well-nourished, Well-developed, appearing stated age 2.Eyes: PERRL, no conjunctival injection, and symmetrical lids. 3.ENT: Atraumatic external nose and ears. Moist MM. Neck: Symmetric, trachea midline, No thyromegaly. 4.CVS: +S1/S2, No murmurs or gallops. Peripheral pulses 2+ and equal in all extremities. Brisk capillary refill in all extremities. 5.RESP: Unlabored respiratory effort. Clear to auscultation bilaterally. No wheezes rales or rhonchi. Reproducible left-sided chest wall tenderness on palpation of the pectoralis major and minor muscles of the lateral aspect. No rib tenderness otherwise. No evidence of rash or shingles. 6.GI: Soft, Nontender/Nondistended, No hepatosplenomegaly. No guarding or rebound. 7.MSK: Normocephalic/Atraumatic, Extremities w/o deformity or ttp No cyanosis or clubbing, Normal movement of all extremities 8.Skin: Warm, Dry. No rashes or lesions. 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 Sensation grossly intact, no focal neurologic deficits. 10.Psych: (AAO) x3. Appropriate mood and affect Course Vital Signs Vital signs: Vital Signs Temperature 36.8 C 11/12/21 06:55 Pulse 84 11/12/21 06:55 Respiratory Rate 16 11/12/21 06:55 Blood Pressure 119/69 11/12/21 06:55 Pulse Oximetry 100 11/12/21 06:55 Temperature 36.8 C 11/12/21 06:55 Temperature Source Temporal Artery Scan 11/12/21 06:55 Pulse 84 11/12/21 06:55 Respiratory Rate 15 11/12/21 06:59 Respiratory Effort 11/12/21 07:00 Respiratory Depth Normal 11/12/21 06:59 Respiratory Pattern Normal 11/12/21 06:59 Blood Pressure 119/69 11/12/21 06:55 Blood Pressure Position Supine 11/12/21 06:55 Pulse Oximetry 100 11/12/21 06:55 Oxygen Delivery Method Room Air 11/12/21 06:55 Oxygen Flow Rate 0 11/12/21 06:55 Pain Level 5 11/12/21 06:59
[2021-11-12 07:17] LABS: Abs Immature Grans 0.02 10^3/uL (0.0-0.06); Absolute Basophil Count 0.05 10^3/uL (0.0-0.2); Absolute Eosinophil Count 0.31 10^3/uL (0.0-0.7); Absolute Lymphocyte Count 1.89 10^3/uL (1.2-3.4); Absolute Monocyte Count 0.68 10^3/uL (0.1-0.8); Absolute Neutrophil Count 3.22 10^3/uL (1.2-6.7); Basophils % 0.8; HCT 38.7 % (40.0-50.0); HGB 12.7 g/dL (13.5-17.5); Immature Grans % 0.3; Lymphocytes % 30.6; MCH 30.3 pg (27.0-33.0); MCHC 32.8 % (32.0-36.0); MCV 92 fL (80-95); MPV 11.4 fL (8.0-11.0); Neutrophils % 52.3; Platelet Count 210 10^3/uL (130-400); RBC 4.19 10^6/uL (4.36-5.78); RDW 11.7 % (11.8-14.1); RDW-SD 39.5 fL; WBC 6.17 10^3/uL (4.4-10.8)
[2021-11-12] MEDS: Normal Saline 500 ML IV (07:21)
[2021-11-12] MEDS: Ketorolac 15 MG/ML VIAL IVP (07:21)
[2021-11-12 07:37] LABS: ALT 21 U/L (16-63); AST 15 U/L (15-37); Albumin 3.4 g/dL (3.4-5.0); Alkaline Phosphatase 128 U/L (46-116); Anion Gap 1.6 mmol/L (3-11); BUN 7 mg/dL (7-18); Bilirubin, Total 0.2 mg/dL (0.2-1.0); CO2 33.4 mmol/L (21.0-32.0); CREATININE 0.9 mg/dL (0.70-1.30); Calcium 10.9 mg/dL (8.5-10.1); Chloride 106 mmol/L (98-107); Glucose 108 mg/dL (74-106); Lipase 48 U/L (73-393); NT-proBNP 20 pg/mL (<300); Potassium 4.4 mmol/L (3.5-5.1); Sodium 141 mmol/L (136-145); Total Protein 6.8 g/dL (6.4-8.2); Troponin I < 50 ng/L (<or=60)
[2021-11-12 07:57] LABS: D-Dimer 394 ng/mlFEU (<500)
--- NOTE | 2021-11-12 08:54 | DI.RAD_ITS ---
Exam(s) XR CHEST 2V PA LATERAL EXAM: XR CHEST 2V PA LATERAL CLINICAL HISTORY: chest pain TECHNIQUE: 2D digital imaging was performed of the chest. Two images were obtained. PA and lateral views were obtained. COMPARISON: CR,XR XR CHEST 2V PA LATERAL from 10/07/2021 FINDINGS: MEDIASTINUM: Normal. HEART: Normal. PULMONARY VASCULATURE: Normal. LUNGS: Clear. PLEURAL SPACE: No pleural effusion or pneumothorax. BONE:Within normal limits for the patient's age. OTHER FINDINGS:Normal. IMPRESSION: No acute pulmonary findings. DATA REPOSITORY: RADIATION DOSE DELIVERED:
--- NOTE | 2021-11-12 09:16 | W.EDPROG ---
Date of service: 11/12/21 Time of Service: 07:30 Medical Decision Making Pedro Pablo Cortes was signed out to me at time of shift change by Dr. Eagle with labs, imaging pending D-dimer result, reassessment pending. Labs reviewed, troponin negative, D-dimer negative. Plan for chest x-ray. Chest x-ray negative. Repeat troponin and EKG negative. Patient reassessed, continued tenderness to palpation over the pectoralis that reproduces pain. Suspect musculoskeletal etiology of pain. Exam/history at this time not consistent with acute coronary syndrome, acute aortic pathology, pulmonary embolism, other acute emergent life-threatening process. Plan for outpatient follow-up. I had a discussion with Patient regarding return to emergency department precautions, home care, and importance of outpatient follow-up. Pt verbalizes understanding of the plan and is amenable. Patient discharged to home with clear plan for outpatient follow-up. All questions were answered. Disposition decision was made weighing the risks and benefits of hospitalization versus outpatient treatment, the risk for further decompensation, and the patient's wishes. After discharge patient noted that he had missed his methadone dosing this morning and requests methadone administration here in the emergency department. Dr. Lea of [facility] was contacted ([facility] currently closed holiday). Dr. Lea recommends administration of 50 mg of methadone after UDS, she states that methadone not to be administered in benzos positive on UDS, okay to administer if opiates, other substances positive on UDS. Discussed with patient who is amenable. UDS obtained, negative for benzodiazepines, plan for 50 mg methadone. This was ordered from pharmacy. Patient stated to nursing that he had to leave as his ride was here, left from the waiting room without receiving methadone. Medical Records Medical records reviewed: Yes I reviewed the patient's medical records. Imaging Data Radiologic Study: Attestation: I personally reviewed and interpreted this imaging study as follows: Radiologist's impression: EXAM:? XR CHEST 2V PA ? LATERAL CLINICAL HISTORY:? chest pain TECHNIQUE:? 2D digital imaging was performed of the chest.? Two images were obtained.? PA and lateral views were obtained. COMPARISON:? CR,XR XR CHEST 2V PA ? LATERAL from 10/07/2021 FINDINGS: MEDIASTINUM: Normal.? HEART: Normal. PULMONARY VASCULATURE: Normal. LUNGS: Clear. ? PLEURAL SPACE: No pleural effusion or pneumothorax. BONE:Within normal limits for the patient's age.? OTHER FINDINGS:Normal.? IMPRESSION: No acute pulmonary findings. Lab Data Lab results reviewed: Yes I reviewed the patient's lab results. Labs: Laboratory Tests Range/Units 11/12/21 11/12/21 11/12/21 07:10 07:10 07:10 WBC (4.4-10.8) 10^3/uL 6.17 RBC (4.36-5.78) 10^6/uL 4.19 L Hgb (13.5-17.5) g/dL 12.7 L Hct (40.0-50.0) % 38.7 L MCV (80-95) fL 92 MCH (27.0-33.0) pg 30.3 MCHC (32.0-36.0) % 32.8 RDW (11.8-14.1) % 11.7 L Plt Count (130-400) 10^3/uL 210 MPV (8.0-11.0) fL 11.4 H Immature Gran % 0.3 Neutrophils % 52.3 Lymphocytes % 30.6 Monocytes % 11.0 Eosinophils % 5.0 Basophils % 0.8 Nucleated RBC % (0.0-0.3) % 0.0 Absolute Neutrophils (1.2-6.7) 10^3/uL 3.22 Absolute Lymphocytes (1.2-3.4) 10^3/uL 1.89 Absolute Monocytes (0.1-0.8) 10^3/uL 0.68 Absolute Eosinophils (0.0-0.7) 10^3/uL 0.31 Absolute Basophils (0.0-0.2) 10^3/uL 0.05 D-Dimer (<500) ng/mlFEU 394 Sodium (136-145) mmol/L 141 Potassium (3.5-5.1) mmol/L 4.4 Chloride (98-107) mmol/L 106 Carbon Dioxide (21.0-32.0) mmol/L 33.4 H Anion Gap (3-11) mmol/L 1.6 L BUN (7-18) mg/dL 7 Creatinine (0.70-1.30) mg/dL 0.9 Estimated GFR/1.73 m2 (mL/min/1.73m2) >= 60.00 Glucose (74-106) mg/dL 108 H Calcium (8.5-10.1) mg/dL 10.9 H Total Bilirubin (0.2-1.0) mg/dL 0.2 AST (15-37) U/L 15 ALT (16-63) U/L 21 Alkaline Phosphatase (46-116) U/L 128 H Troponin I (<or=60) ng/L < 50 NT-Pro-B Natriuret Pep (<300) pg/mL 20 Total Protein (6.4-8.2) g/dL 6.8 Albumin (3.4-5.0) g/dL 3.4 Lipase (73-393) U/L 48 Urine Opiates Screen (Negative) Urine Methadone Screen (Negative) Ur Barbiturates Screen (Negative) Ur Tricyclics Screen (Negative) Ur Amphetamines Screen (Negative) U Benzodiazepines Scrn (Negative) Urine Cocaine Screen (Negative) Ur THC Screen (Negative) Range/Units 11/12/21 11/12/21 10:07 11:21 WBC (4.4-10.8) 10^3/uL RBC (4.36-5.78) 10^6/uL Hgb (13.5-17.5) g/dL Hct (40.0-50.0) % MCV (80-95) fL MCH (27.0-33.0) pg MCHC (32.0-36.0) % RDW (11.8-14.1) % Plt Count (130-400) 10^3/uL MPV (8.0-11.0) fL Immature Gran % Neutrophils % Lymphocytes % Monocytes % Eosinophils % Basophils % Nucleated RBC % (0.0-0.3) % Absolute Neutrophils (1.2-6.7) 10^3/uL Absolute Lymphocytes (1.2-3.4) 10^3/uL Absolute Monocytes (0.1-0.8) 10^3/uL Absolute Eosinophils (0.0-0.7) 10^3/uL Absolute Basophils (0.0-0.2) 10^3/uL D-Dimer (<500) ng/mlFEU Sodium (136-145) mmol/L Potassium (3.5-5.1) mmol/L Chloride (98-107) mmol/L Carbon Dioxide (21.0-32.0) mmol/L Anion Gap (3-11) mmol/L BUN (7-18) mg/dL Creatinine (0.70-1.30) mg/dL Estimated GFR/1.73 m2 (mL/min/1.73m2) Glucose (74-106) mg/dL Calcium (8.5-10.1) mg/dL Total Bilirubin (0.2-1.0) mg/dL AST (15-37) U/L ALT (16-63) U/L Alkaline Phosphatase (46-116) U/L Troponin I (<or=60) ng/L < 50 NT-Pro-B Natriuret Pep (<300) pg/mL Total Protein (6.4-8.2) g/dL Albumin (3.4-5.0) g/dL Lipase (73-393) U/L Urine Opiates Screen (Negative) Positive A Urine Methadone Screen (Negative) Positive A Ur Barbiturates Screen (Negative) Negative Ur Tricyclics Screen (Negative) Negative Ur Amphetamines Screen (Negative) Negative U Benzodiazepines Scrn (Negative) Negative Urine Cocaine Screen (Negative) Positive A Ur THC Screen (Negative) Negative ECG Data Attestation: I personally reviewed and interpreted this ECG (s) as follows: Interpretation: Repeat EKG 10:09 shows sinus bradycardia at 57, normal axis, first-degree block, no acute ischemic changes, no STEMI, nondiagnostic EKG Sign Out Sign Out Data: Sign Out Comment: Chest pain, follow-up on labs and imaging and D-dimer. Determine imaging based on D-dimer. Last updated by Richy Eagle DO at 11/12/21 07:25 Discharge Plan Disposition Patient Disposition: HOME Condition: Stable Discharge Details Clinical Impression: Left-sided chest pain Primary Care Provider: Brendon Vivar ED Provider: Liseth Bundy Home Meds and New Rx's Prescriptions: Continued methadone 10 mg/5 mL solution 100 mg PO Q4H buspirone 10 mg tablet 10 mg PO BID Qty: 60 0RF trazodone 50 mg tablet 50 mg PO QHS PRN (Reason: sleep) Qty: 30 0RF lorazepam 1 mg tablet 1 mg PO BID PRN (Reason: anxiety) Qty: 14 0RF Discharge Instructions Instructions: Chest Pain (ED), Chest Wall Pain (ED) Additional Instructions: Please return immediately to the emergency department if you develop any new or worsening symptoms, if your condition does not improve as expected, or if you become otherwise concerned. It is extremely important that you call soon as possible to make an appointment to be seen in follow-up for this visit by your primary care doctor. Referrals: Brendon Vivar DO [Primary Care Provider] -
--- NOTE | 2021-11-12 09:26 | DI.VRAD_ITS ---
PROCEDURE INFORMATION: Exam: XR Chest Exam date and time: 11/12/2021 8:51 AM Age: 26 years old Clinical indication: Other: Chest pain TECHNIQUE: Imaging protocol: XR of the chest. Views: 2 views. COMPARISON: CR XR CHEST 2V PA LATERAL 10/07/2021 11:46 AM FINDINGS: Lungs: Stable density within the left lung apex. This relates to a superimposed osseous abnormality based on previous CT imaging. No evidence of acute consolidation. Pleural spaces: Unremarkable. No pleural effusion. No pneumothorax. Heart/Mediastinum: Unremarkable. No cardiomegaly. Bones/joints: Unremarkable. IMPRESSION: No evidence of acute consolidation. Dictated and Authenticated by: Sixto Moore MD. Ordering:MARGE Childers MD
--- NOTE | 2021-11-12 10:00 | RT.EKG_ITS ---
APPROVED REPORT Exam: Resting ECG Reason for Exam: repeat Patient Location: E HR:57 bpm ECG Measurements Heart Rate 57 AXIS WA 220 P 45 QRSd 89 QRS 47 QT 383 T 27 QTc 373 Conclusion Sinus bradycardia...rate< 60 Prolonged WA interval...WA >210, V-rate 50- 90 sinus bradycardia at 57, normal axis, first-degree block, no acute ischemic changes, no STEMI, nondia gnostic EKG
[2021-11-12 10:26] LABS: Troponin I < 50 ng/L (<or=60)
[2021-11-12 11:42] LABS: *AMPHETAMINES SCREEN URINE Negative (Negative); *BARBITURATES SCREEN URINE Negative (Negative); *BENZODIAZEPINES SCREEN URINE Negative (Negative); Cannabinoids THC Negative (Negative); Cocaine Screen,Urine Positive (Negative); METHADONE URINE SCREEN Positive (Negative); OPIATES URINE SCREEN Positive (Negative); Tricyclic Antidepressants Negative (Negative)
== END 2021-11-12 12:07 | disposition home or self-care (01) ==
PROVIDERS: Student in an Organized Health Care Education/Training Program; Emergency Provider Student in an Organized Health Care Education/Training Program; PCP Family Medicine
DX: R07.9 Chest pain, unspecified (principal); F11.20 Opioid dependence, uncomplicated
CPT/HCPCS: 36415; 80053; 80307; 83690; 93005; 96361; 96374; 99283; 99284; 71046; 83880; 84484; 85025; 85379; 93010; J1885

== ENCOUNTER 2021-11-12 18:51 | Emergency (ER) | payer MEDICAID, SELFPAY ==
[2021-11-12] VITALS (35 sets, daily range): BP systolic 96–114; BP diastolic 53–75; PULSE 63–103; RESP 9–20; TEMP 36.4–37.5; O2SAT 94–100
--- NOTE | 2021-11-12 18:45 | RT.EKG_ITS ---
APPROVED REPORT Exam: Resting ECG Reason for Exam: chest pain Patient Location: E HR:98 bpm ECG Measurements Heart Rate 98 AXIS TN 210 P 42 QRSd 90 QRS 46 QT 330 T 22 QTc 422 Conclusion Sinus rhythm...normal P axis, V-rate 60- 99 Prolonged TN interval...TN >205, V-rate 91-120
--- NOTE | 2021-11-12 18:54 | W.ED.GENAD ---
Discharge Plan Disposition Patient Disposition: HOME Discharge Details Clinical Impression: Chest wall pain Primary Care Provider: Brendon Vivar ED Provider: Ryne De Leon Home Meds and New Rx's Prescriptions: No Action methadone 10 mg/5 mL solution 100 mg PO Q4H buspirone 10 mg tablet 10 mg PO BID Qty: 60 0RF trazodone 50 mg tablet 50 mg PO QHS PRN (Reason: sleep) Qty: 30 0RF lorazepam 1 mg tablet 1 mg PO BID PRN (Reason: anxiety) Qty: 14 0RF Discharge Instructions Instructions: Chest Wall Pain (ED) Additional Instructions: Please continue taking all your regular medications and follow-up with your doctor as needed Medical Decision Making Patient is a normal EKG on presentation. No signs of ischemia. When compared to previous EKGs no significant change. He had 2 sets of troponins both were normal. He was given aspirin on arrival. He did request to get his methadone but unfortunately this time of night hit his not available. Slept well in the emergency department no acute distress. Resolution of symptoms. HPI General Date/Time Provider Initiated Documentation: 11/12/21 18:54. HPI Narrative: 18-year-old presents to the emergency room with a chief complaint of left-sided chest pain as well as epigastric pain this been going on throughout the day. He was seen for the same this morning. After his work-up 50 mg of methadone were referred but unfortunately he left home before getting the medication. He states that he tried to rest throughout the day but that the pain persisted throughout the day. No nausea no vomiting. No back pain. Pain described as moderate. No diaphoresis. He states that he was having this pain for the past month. Related Data Home Medications Medication Instructions Recorded Confirmed buspirone 10 mg tablet 10 mg PO BID #60 tabs 10/18/21 11/12/21 methadone 10 mg/5 mL oral solution 100 mg PO Q4H 10/18/21 11/12/21 lorazepam 1 mg tablet 1 mg PO BID PRN anxiety #14 tabs 10/25/21 11/12/21 trazodone 50 mg tablet 50 mg PO QHS PRN sleep #30 tabs 10/25/21 11/12/21 Previous Rx's Medication Instructions Recorded buspirone 10 mg tablet 10 mg PO BID #60 tabs 10/18/21 lorazepam 1 mg tablet 1 mg PO BID PRN anxiety #14 tabs 10/25/21 trazodone 50 mg tablet 50 mg PO QHS PRN sleep #30 tabs 10/25/21 Allergies Allergy/AdvReac Type Severity Reaction Status Date / Time codeine Allergy Intermediate Verified 11/12/21 19:06 General ADRIANA: 2 Review of Systems All systems reviewed & are unremarkable except as noted in HPI and below PFSH All Active Problems (Updated 11/12/21 @ 22:55 by Ryne De Leon MD) Pneumonia (Acute) Left-sided chest pain (Acute) Chest wall pain (Acute) Arm pain, left (Acute) Anemia (Chronic) Elevated parathyroid hormone (Acute) Hyperlipidemia (Acute) Depression (Chronic) Anxiety (Chronic) Vomiting (Acute) Family history of coronary arteriosclerosis (Chronic) Father of MN at 50, mother had MN at 42 Family history of multiple endocrine neoplasia, type 1 (Acute) Severe anxiety with panic (Acute) Hypercalcemia (Acute) PTSD (post-traumatic stress disorder) (Acute) Cellulitis (Acute) Medical History Anxiety in acute stress reaction Cocaine use History of heroin abuse Surgical History No significant past surgical history Family History Mother Anxiety Asthma Depression Sister Anxiety Depression Father Cancer lung & stomach Depression Diabetes Hypertension MEN 1 (multiple endocrine neoplasia) Social History Smoking/Tobacco Use Status: Never Smoking risk assessment performed?: Yes Alcohol Intake: never Drug use: Current Sobriety Substance use type: crack/cocaine and heroin Adopted: No Caregiver/Support person: No Foster care: No Household members: none Housing: house Number of Children: 0 Communication Needs: None Education Level: high school Do you need help understanding health information?: Never 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 and animals: Yes (Ally) Pets and animals: dog(s) Sexually active: No Do you think of yourself as: straight/heterosexual Current gender identity: male What is your relationship status?: How often do you talk on the phone with friends or family?: twice per week How often do you get together with friends or relatives?: never Do you belong to any clubs or organized social groups?: no Panel score (0-1 are the most socially isolated patients): 0 What type of physical activity do you participate in: walking Duration: 15-30 minutes/day Frequency: 5-6 times per week Maryam/Oriental Orthodox: Rastafarian Special maryam needs: No Seatbelt use: always Helmet use: Yes Helmet use: always Drive 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 tank 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 Exam Narrative Exam Narrative: 1.Const: Well-nourished, Well-developed, appearing stated age 2.Eyes: PERRL, no conjunctival injection, and symmetrical lids. 3.ENT: Atraumatic external nose and ears. Moist MM. Neck: Symmetric, trachea midline, No thyromegaly. 4.CVS: +S1/S2, No murmurs or gallops. Peripheral pulses 2+ and equal in all extremities. Brisk capillary refill in all extremities. 5.RESP: Unlabored respiratory effort. Clear to auscultation bilaterally. No wheezes rales or rhonchi. Reproducible left-sided chest wall tenderness on palpation of the pectoralis major and minor muscles of the lateral aspect. No rib tenderness otherwise. No evidence of rash or shingles. 6.GI: Soft, Nontender/Nondistended, No hepatosplenomegaly. No guarding or rebound. 7.MSK: Normocephalic/Atraumatic, Extremities w/o deformity or ttp No cyanosis or clubbing, Normal movement of all extremities 8.Skin: Warm, Dry. No rashes or lesions. 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 Sensation grossly intact, no focal neurologic deficits. 10.Psych: (AAO) x3. Appropriate mood and affect
[2021-11-12 20:14] LABS: Troponin I < 50 ng/L (<or=60)
[2021-11-12] MEDS: LORazepam 1 MG TAB 2 MG PO (20:20)
[2021-11-12] MEDS: Aspirin 81 MG CHEW 162 MG PO (20:26)
[2021-11-12 22:41] LABS: Troponin I < 50 ng/L (<or=60)
== END 2021-11-12 23:36 | disposition home or self-care (01) ==
PROVIDERS: Emergency Provider Emergency Medicine; PCP Family Medicine
DX: R07.89 Other chest pain (principal); R07.9 Chest pain, unspecified
CPT/HCPCS: 36415; 93005; 99283; 84484; 93010

== ENCOUNTER 2021-11-13 20:36 | Emergency (ER) | payer MEDICAID, SELFPAY ==
[2021-11-13 20:40] VITALS: BP 119/76; PULSE 104; RESP 18; TEMP 36.7; O2SAT 99
--- NOTE | 2021-11-13 20:43 | W.ED.GENAD ---
Discharge Plan Disposition Patient Disposition: HOME Condition: Stable Discharge Details Clinical Impression: Viral URI with cough, Laryngitis Primary Care Provider: Brendon Vivar ED Provider: Breonna Bates Home Meds and New Rx's Prescriptions: Continued methadone 10 mg/5 mL solution 110 mg PO Q4H buspirone 10 mg tablet 10 mg PO BID Qty: 60 0RF trazodone 50 mg tablet 50 mg PO QHS PRN (Reason: sleep) Qty: 30 0RF lorazepam 1 mg tablet 1 mg PO BID PRN (Reason: anxiety) Qty: 14 0RF Discharge Instructions Instructions: Laryngitis (ED), Upper Respiratory Infection (ED), Acute Cough (ED) Additional Instructions: Your exam today is reassuring as you do not have a fever and your oxygen level is within normal limits. Your symptoms are most likely due to a viral illness such as an upper respiratory infection or laryngitis which can cause your voice to sound hoarse. Viruses are best treated with increasing your fluids, rest and taking [id number] cough and cold medication as needed and directed. You can take Tylenol every 4 hours and ibuprofen every 6 hours for pain or fever. Be sure to quarantine until your COVID test result is available and if confirmed to be negative. Follow-up with your primary care doctor in 1 week. Return to the emergency department with any worsening or new concerning symptoms. Stand Alone Forms: PENDING COVID-19 TESTING Discharge Data Discharge Physician: Breonna Bates Medical Decision Making 26-year-old male well-known to the emergency department with a total of 18 visits in 2021 and 8 visits in the last month to the emergency department including 2 visits yesterday for chest pain with negative work-up presents for nasal congestion, rhinorrhea, cough, hoarse voice and shortness of breath since last night. Patient appears anxious at his baseline. Heart rate within normal limits on my evaluation. He is afebrile with normal oxygen saturation and respiratory rate. He appears nontoxic. Normal ENT exam. Lungs clear bilaterally. No meningeal signs. Discussed with patient that losing his voice in setting of nasal congestion, rhinorrhea, presentation could be consistent with viral URI and/or laryngitis. He has been fully vaccinated for COVID but does admit to recent exposures. As he had a negative work-up yesterday including a total of 4 negative troponins yesterday over 2 visits over a 24 hour period, negative D-dimer, negative chest x-ray I do not see an indication for additional lab work or imaging as he is agreeable. History and presentation does not appear consistent with ACS, PE, pneumonia, dissection. Will obtain a send out COVID. Patient is advised to increase fluids, rest, alternate Tylenol Motrin and take [id number] cough and cold medication. Advised to follow up with the primary care doctor for re-evaluation. Usual and customary return precautions given prior to discharge. HPI General Mode of arrival: ambulatory. Date/Time Provider Initiated Documentation: 11/13/21 20:38. Limitations to Documentation: no limitations. Information obtained by: patient. HPI Narrative: Patient is a 26-year-old male well-known to the emergency department with in visits in 2021 and 8 visits in the past month to the emergency department who presents for nasal congestion, runny nose, cough and feeling like he is losing his voice with shortness of breath since last night. Patient was seen here twice yesterday for chest pain and diagnosed with chest wall pain in the setting of an negative work-up. Patient states his chest pain is resolved and he is presenting here mainly with nasal congestion and a feeling like he is losing his voice. He states he felt warm this morning but is unaware of any fever. He states he has received a total of 4 COVID vaccines and states he has been exposed to COVID recently. Related Data Home Medications Medication Instructions Recorded Confirmed buspirone 10 mg tablet 10 mg PO BID #60 tabs 10/18/21 11/13/21 methadone 10 mg/5 mL oral solution 110 mg PO Q4H 10/18/21 11/13/21 lorazepam 1 mg tablet 1 mg PO BID PRN anxiety #14 tabs 10/25/21 11/13/21 trazodone 50 mg tablet 50 mg PO QHS PRN sleep #30 tabs 10/25/21 11/13/21 Previous Rx's Medication Instructions Recorded buspirone 10 mg tablet 10 mg PO BID #60 tabs 10/18/21 lorazepam 1 mg tablet 1 mg PO BID PRN anxiety #14 tabs 10/25/21 trazodone 50 mg tablet 50 mg PO QHS PRN sleep #30 tabs 10/25/21 Allergies Allergy/AdvReac Type Severity Reaction Status Date / Time codeine Allergy Intermediate Verified 11/13/21 20:44 General Stated Complaint: GenMedical ADRIANA: 2 Review of Systems All systems reviewed & are unremarkable except as noted in HPI and below Constitutional Constitutional: Denies chills, Denies excessive sweating, Denies fatigue, Denies fever(s), Denies weakness and Denies weight loss Eyes Eyes: Reports system reviewed and no additional complaints, except as documented and Denies blurry vision ENT Ears, Nose, Mouth, and Throat: Denies vertigo, Denies dizziness, Denies otalgia, Reports hoarseness, Reports nasal congestion, Reports nasal discharge, Denies sore throat and Denies throat swelling Cardiovascular Cardiovascular: Denies chest pain, Denies syncope, Denies rapid heart rate and Reports dyspnea Respiratory Respiratory: Denies chest congestion, Denies cough, Denies pain on inspiration and Reports dyspnea Gastrointestinal Gastrointestinal: Denies abdominal pain, Denies diarrhea and Denies vomiting Genitourinary Genitourinary: Denies hematuria, Denies dysuria and Denies flank pain Musculoskeletal Musculoskeletal: Denies back pain and Denies joint swelling Integumentary/Breasts Skin/Breast: Denies lesions and Denies rash Neurologic Neurologic: Denies behavioral changes, Denies confusion, Denies vertigo, Denies dizziness, Denies syncope, Denies localized weakness and Denies weakness Psychiatric Psychiatric: Denies behavioral changes, Denies confusion and Denies depression Endocrine Endocrine: Denies excessive sweating and Denies fatigue Hematologic/Lymphatic Hematologic/Lymphatic: Denies easy bruising and Denies lymphadenopathy Allergic/Immunologic Allergic/Immunologic: Denies throat swelling PFSH All Active Problems (Updated 11/13/21 @ 20:54 by Breonna Bates DO) Pneumonia (Acute) Left-sided chest pain (Acute) Chest wall pain (Acute) Viral URI with cough (Acute) Laryngitis (Acute) Arm pain, left (Acute) Anemia (Chronic) Elevated parathyroid hormone (Acute) Hyperlipidemia (Acute) Depression (Chronic) Anxiety (Chronic) Vomiting (Acute) Family history of coronary arteriosclerosis (Chronic) Father of MO at 50, mother had MO at 42 Family history of multiple endocrine neoplasia, type 1 (Acute) Severe anxiety with panic (Acute) Hypercalcemia (Acute) PTSD (post-traumatic stress disorder) (Acute) Cellulitis (Acute) Medical History Anxiety in acute stress reaction Cocaine use History of heroin abuse Surgical History No significant past surgical history Family History Mother Anxiety Asthma Depression Sister Anxiety Depression Father Cancer lung & stomach Depression Diabetes Hypertension MEN 1 (multiple endocrine neoplasia) Social History Smoking/Tobacco Use Status: Never Smoking risk assessment performed?: Yes Alcohol Intake: never Drug use: Current Sobriety Substance use type: crack/cocaine and heroin Adopted: No Caregiver/Support person: No Foster care: No Household members: none Housing: house Number of Children: 0 Communication Needs: None Education Level: high school Do you need help understanding health information?: Never 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 and animals: Yes (Ally) Pets and animals: dog(s) Sexually active: No Do you think of yourself as: straight/heterosexual Current gender identity: male What is your relationship status?: How often do you talk on the phone with friends or family?: twice per week How often do you get together with friends or relatives?: never Do you belong to any clubs or organized social groups?: no Panel score (0-1 are the most socially isolated patients): 0 What type of physical activity do you participate in: walking Duration: 15-30 minutes/day Frequency: 5-6 times per week Maryam/Hoahaoism: Mandaeism Special maryam needs: No Seatbelt use: always Helmet use: Yes Helmet use: always Drive 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 team truck 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 Exam Const General: cooperative, healthy appearing and anxious Orientation: alert, awake and oriented x3 HENMT Head: normal to inspection Ears: hearing grossly normal bilaterally, external ears normal and TM's normal bilaterally General nose exam: external nose normal Face and sinus: normal facial exam Mouth: oral mucosae normal Teeth and gingiva: dentition normal Throat: posterior oropharynx normal Eyes General: appearance normal, both eyes and all related structures Eyelids: eyelids normal Pupils: PERRL EOM: EOM intact bilaterally Neck Neck: normal visual inspection Lymphatic: no lymphadenopathy noted Chest Chest: normal inspection of the chest Resp Effort & Inspection: normal respiratory effort and able to speak in complete sentences Auscultation: clear to auscultation bilaterally Cardio Rate: regular rate Rhythm: regular rhythm Back/Spine/Pelvis Back: no CVA tenderness Skin General skin exam: no rashes or lesions noted Neuro General: patient alert and patient awake Cognition: normal cognition Speech: speech normal Gait: normal gait Motor: muscle tone normal throughout Sensory Exam: no sensory deficits noted Extrem General: normal to inspection, full ROM and capillary refill normal Psych Appearance: grossly normal Mental Status: mental status grossly normal Speech and Movement: speech and movement normal Affect: normal affect Thought Process: normal
[2021-11-15 11:13] LABS: COVID-19 RT-PCR UVMMC Result Negative (Negative)
== END 2021-11-13 21:04 | disposition home or self-care (01) ==
PROVIDERS: Emergency Provider Physician Assistant; PCP Family Medicine
DX: J06.9 Acute upper respiratory infection, unspecified (principal); R05.1 Acute cough; J04.0 Acute laryngitis; Z20.822 Contact with and (suspected) exposure to COVID-19
CPT/HCPCS: 99282; U0003

== ENCOUNTER 2021-11-16 16:42 | Outpatient (REF) | payer MEDICAID, SELFPAY ==
[2021-11-16 17:19] LABS: Vitamin B12 326 pg/mL (193-986)
== END 2021-11-16 16:43 | disposition home or self-care (01) ==
LOC: LBN 16:42
PROVIDERS: PCP Family Medicine; Visit Provider Family Medicine
DX: D64.9 Anemia, unspecified (principal); R20.2 Paresthesia of skin
CPT/HCPCS: 82607

== ENCOUNTER 2021-11-22 18:26 | Emergency (ER) | payer MEDICAID, SELFPAY ==
[2021-11-22] VITALS (29 sets, daily range): BP systolic 100–133; BP diastolic 56–73; PULSE 62–97; RESP 11–22; TEMP 36.8; O2SAT 95–99
--- NOTE | 2021-11-22 18:15 | RT.EKG_ITS ---
APPROVED REPORT Exam: Resting ECG Reason for Exam: chest pain Patient Location: E HR:82 bpm ECG Measurements Heart Rate 82 AXIS IA 181 P 48 QRSd 89 QRS 74 QT 355 T 29 QTc 415 Conclusion Sinus rhythm...normal P axis, V-rate 60- [address] elevation, anterior leads...ST >0.15mV in V1-V4. Sinus. Normal axis. No STEMI. I have reviewed and interpreted ECG and agree with software generated interpretation.
--- NOTE | 2021-11-22 18:32 | ED.GENADUL_ITS ---
Discharge Plan Disposition Patient Disposition: HOME Condition: Stable Discharge Details Clinical Impression: Chest pain, Indigestion Primary Care Provider: Brendon Vivar ED Provider: Lester Bundy Home Meds and New Rx's Prescriptions: New famotidine [Pepcid] 20 mg tablet 20 mg PO BID Qty: 60 0RF Continued buspirone 10 mg tablet 10 mg PO BID Qty: 60 0RF methadone 10 mg/5 mL solution 110 mg PO QAM trazodone 50 mg tablet 50 mg PO QHS PRN (Reason: sleep) Qty: 30 0RF lorazepam 1 mg tablet 1 mg PO BID PRN (Reason: anxiety) Qty: 14 0RF Discharge Instructions Instructions: Chest Pain (ED), Indigestion (ED) Additional Instructions: Your lab work, EKG and imaging today is reassuring and shows no evidence of acute concerning or significant findings. Follow-up with your primary care doctor in 1 week. Return to the emergency department with any worsening or new concerning symptoms. Referrals: Brendon Vivar DO [Primary Care Provider] - Discharge Data Discharge Date/Time-TO BE ENTERED AT DEPARTURE: 11/22/21 23:02 Discharge Physician: Breonna Bates Medical Decision Making 26-year-old male with a history of anxiety, panic attacks, PTSD well-known to the emergency department for multiple visits for chest pain with negative workups presents with burning chest and throat pain with a sensation of indigestion that started 1 hour prior to arrival. He admits to bilateral lower leg and foot pain prior to onset of chest pain. Of note, he has family history of MEN 1 and a suspected parathyroidoma, for which he is following up with [facility] general surgery on 12/13/21. Patient appears anxious at his baseline. His vitals are within normal limits. His EKG notes a rate of 66, sinus, normal axis with borderline ST elevation in V2 and V3 but this does not appear significantly different than previous EKG and does not meet official criteria for STEMI. There are no reciprocal ST depressions. Due to an abnormal EKG, will obtain a screening work-up with troponin and chest x-ray. History and presentation does not appear consistent with PE but considering his potential parathyroidoma, will add a D-dimer. Suspect his symptoms are GI in etiology and will give a GI cocktail, Pepcid, Carafate in addition to IV fluids and Ativan IV. Case endorsed to Dr. Bundy to follow-up on labs and imaging and final disposition. We will plan for delta troponin and EKG. Medical Records Medical records reviewed: Yes I reviewed the patient's medical records. Medical records narrative: 09/25/21 Exercise Treadmill Stress test Stress ECG Conclusion 1. The resting electrocardiogram showed vertical axis, otherwise normal 2. Patient exercised on the Tonny protocol and completed a workload of 13.5 METS 3. Normal hemodynamic response to exercise.? Patient achieved 87% of predicted heart rate for age 4. There was no electrocardiographic evidence of myocardial ischemia 5. There were no significant dysrhythmias Lab Data Lab results reviewed: Yes I reviewed the patient's lab results. ECG Data Attestation: I personally reviewed and interpreted this ECG (s) as follows: Interpretation: rate of 82, sinus, normal axis, borderline ST elevation in V2-3 but no official criteria for STEMI. HPI General Mode of arrival: ambulatory . Date/Time Provider Initiated Documentation: 11/22/21 18:27 . Limitations to Documentation: no limitations . Information obtained by: patient . HPI Narrative: Patient is a 26-year-old male with a history of anxiety, panic attacks, PTSD, well-known to the emergency department with multiple visits for chest pain presents with a complaint of indigestion and burning sensation in his throat and chest that started 1 hour ago. He states he tried to burp but had no improvement. Patient states his symptoms for started with pain in his distal lower legs and feet and then he noted the burning chest pain. He also admits to feelings of anxiety with lightheadedness and shortness of breath. He states he took an Ativan as he thought it was possibly anxiety but denies any relief with that. He denies any fever, nausea, vomiting, or new cough. This is patient's 10th visit in the last month for similar symptoms. On his last visit here 1 week ago he had an extensive cardiac work-up including 4 negative troponins, negative COVID, negative D-dimer, negative chest x-ray. Of note, patient had been noted to have elevated calcium and parathyroid hormone per his PCP and was suspected of having a parathyroidoma and a family history of MEN 1. He has been referred to [facility] endocrine with plan for possible excision on December 13. Related Data Home Medications Medication Instructions Recorded Confirmed buspirone 10 mg tablet 10 mg PO BID #60 tabs 10/18/21 11/22/21 lorazepam 1 mg tablet 1 mg PO BID PRN anxiety #14 tabs 10/25/21 11/22/21 trazodone 50 mg tablet 50 mg PO QHS PRN sleep #30 tabs 10/25/21 11/22/21 methadone 10 mg/5 mL oral solution 110 mg PO QAM 11/16/21 11/22/21 famotidine 20 mg tablet (Pepcid) 20 mg PO BID #60 tabs 11/22/21 Previous Rx's Medication Instructions Recorded buspirone 10 mg tablet 10 mg PO BID #60 tabs 10/18/21 lorazepam 1 mg tablet 1 mg PO BID PRN anxiety #14 tabs 10/25/21 trazodone 50 mg tablet 50 mg PO QHS PRN sleep #30 tabs 10/25/21 famotidine 20 mg tablet (Pepcid) 20 mg PO BID #60 tabs 11/22/21 Allergies Allergy/AdvReac Type Severity Reaction Status Date / Time codeine Allergy Intermediate Verified 11/22/21 18:34 General Stated Complaint: Chest Pain ADRIANA: 2 Review of Systems All systems reviewed & are unremarkable except as noted in HPI and below Constitutional Constitutional: Denies chills, Denies excessive sweating, Denies fatigue, Denies fever(s), Denies weakness and Denies weight loss Eyes Eyes: Reports system reviewed and no additional complaints, except as documented and Denies blurry vision ENT Ears, Nose, Mouth, and Throat: Denies vertigo, Denies dizziness, Denies otalgia, Denies nasal congestion, Denies sore throat and Denies throat swelling Cardiovascular Cardiovascular: Reports chest pain, Denies syncope, Denies rapid heart rate and Denies dyspnea Respiratory Respiratory: Denies chest congestion, Denies cough, Denies pain on inspiration and Denies dyspnea Gastrointestinal Gastrointestinal: Denies abdominal pain, Reports dyspepsia, Denies diarrhea and Denies vomiting Genitourinary Genitourinary: Denies hematuria, Denies dysuria and Denies flank pain Musculoskeletal Musculoskeletal: Denies back pain and Denies joint swelling Integumentary/Breasts Skin/Breast: Denies lesions and Denies rash Neurologic Neurologic: Denies behavioral changes, Denies confusion, Denies vertigo, Denies dizziness, Denies syncope, Denies localized weakness and Denies weakness Psychiatric Psychiatric: Denies behavioral changes, Denies confusion and Denies depression Endocrine Endocrine: Denies excessive sweating and Denies fatigue Hematologic/Lymphatic Hematologic/Lymphatic: Denies easy bruising and Denies lymphadenopathy Allergic/Immunologic Allergic/Immunologic: Denies throat swelling PFSH All Active Problems (Updated 11/22/21 @ 19:29 by Breonna Bates DO) Chest pain (Acute) Indigestion (Acute) Pneumonia (Acute) Left-sided chest pain (Acute) Chest wall pain (Acute) Viral URI with cough (Acute) Laryngitis (Acute) Arm pain, left (Acute) Anemia (Chronic) Elevated parathyroid hormone (Acute) Hyperlipidemia (Acute) Family history of coronary arteriosclerosis (Chronic) Father of IA at 50, mother had IA at 42 Family history of multiple endocrine neoplasia, type 1 (Acute) Severe anxiety with panic (Acute) Hypercalcemia (Acute) PTSD (post-traumatic stress disorder) (Acute) Cellulitis (Acute) Medical History Anxiety in acute stress reaction Cocaine use History of heroin abuse Surgical History No significant past surgical history Family History Mother Anxiety Asthma Depression Sister Anxiety Depression Father Cancer lung & stomach Depression Diabetes Hypertension MEN 1 (multiple endocrine neoplasia) Social History Smoking/Tobacco Use Status: Never Smoking risk assessment performed?: Yes Alcohol Intake: never Drug use: Current Sobriety Substance use type: crack/cocaine and heroin Adopted: No Caregiver/Support person: No Foster care: No Household members: none Housing: house Number of Children: 0 Communication Needs: None Education Level: high school Do you need help understanding health information?: Never 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 and animals: Yes (Ally) Pets and animals: dog(s) Sexually active: No Do you think of yourself as: straight/heterosexual Current gender identity: male What is your relationship status?: How often do you talk on the phone with friends or family?: twice per week How often do you get together with friends or relatives?: never Do you belong to any clubs or organized social groups?: no Panel score (0-1 are the most socially isolated patients): 0 What type of physical activity do you participate in: walking Duration: 15-30 minutes/day Frequency: 5-6 times per week Maryam/Denominational: Congregational Special maryam needs: No Seatbelt use: always Helmet use: Yes Helmet use: always Drive 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 residential 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 Exam Const General: cooperative and anxious Orientation: alert, awake and oriented x3 HENMT Head: normal to inspection Ears: hearing grossly normal bilaterally, external ears normal and TM's normal bilaterally General nose exam: external nose normal Face and sinus: normal facial exam Mouth: oral mucosae normal Teeth and gingiva: dentition normal Throat: posterior oropharynx normal Eyes General: appearance normal, both eyes and all related structures Eyelids: eyelids normal Pupils: PERRL EOM: EOM intact bilaterally Neck Neck: normal visual inspection Lymphatic: no lymphadenopathy noted Chest Chest: normal inspection of the chest and tenderness (anterior chest) Resp Effort & Inspection: normal respiratory effort and able to speak in complete sentences Auscultation: clear to auscultation bilaterally Cardio Rate: regular rate Rhythm: regular rhythm GI Inspection: normal to inspection and obesity Palpation: soft, not firm, no guarding, no hepatosplenomegaly, no masses and nontender Auscultation: normal bowel sounds Back/Spine/Pelvis Back: no CVA tenderness Skin General skin exam: no rashes or lesions noted Neuro General: patient alert and patient awake Cognition: normal cognition Speech: speech normal Gait: normal gait Motor: muscle tone normal throughout Sensory Exam: no sensory deficits noted Extrem General: normal to inspection, full ROM, capillary refill normal, no calf tenderness and no edema Psych Appearance: grossly normal Mental Status: mental status grossly normal Speech and Movement: speech and movement normal Affect: normal affect Thought Process: normal Sign Out Sign Out Data: Sign Out Comment: Follow-up on labs and imaging with plan for delta troponin and EKG. If patient's symptoms improve and work-up unremarkable, will plan for discharge to home with follow-up with his primary doctor. Last updated by Breonna Bates DO at 11/22/21 19:12
--- NOTE | 2021-11-22 19:00 | DI.RAD_ITS ---
Exam(s) XR CHEST 2V PA LATERAL EXAM: XR CHEST 2V PA LATERAL CLINICAL HISTORY: chest pain, r/o acute disease TECHNIQUE: 2D digital imaging was performed of the chest. Two images were obtained. PA and lateral views were obtained. COMPARISON: CR,XR XR CHEST 2V PA LATERAL from 11/12/2021 FINDINGS: MEDIASTINUM: Normal. HEART: Normal. PULMONARY VASCULATURE: Normal. LUNGS: Clear. PLEURAL SPACE: No pleural effusion or pneumothorax. BONE:Within normal limits for the patient's age. OTHER FINDINGS:Normal. IMPRESSION: No acute pulmonary findings. DATA REPOSITORY: RADIATION DOSE DELIVERED:
--- NOTE | 2021-11-22 19:00 | RT.EKG_ITS ---
APPROVED REPORT Exam: Resting ECG Reason for Exam: chest pain Patient Location: E HR:69 bpm ECG Measurements Heart Rate 69 AXIS VT 190 P 26 QRSd 92 QRS 51 QT 397 T 25 QTc 424 Conclusion Sinus rhythm...normal P axis, V-rate 60- 99
[2021-11-22 19:27] LABS: Abs Immature Grans 0.02 10^3/uL (0.0-0.06); Absolute Basophil Count 0.03 10^3/uL (0.0-0.2); Absolute Eosinophil Count 0.14 10^3/uL (0.0-0.7); Absolute Lymphocyte Count 1.73 10^3/uL (1.2-3.4); Absolute Monocyte Count 0.56 10^3/uL (0.1-0.8); Absolute Neutrophil Count 5.28 10^3/uL (1.2-6.7); Basophils % 0.4; Eosinophils % 1.8; HCT 40.5 % (40.0-50.0); HGB 13.6 g/dL (13.5-17.5); Immature Grans % 0.3; Lymphocytes % 22.3; MCH 30.3 pg (27.0-33.0); MCHC 33.6 % (32.0-36.0); MCV 90 fL (80-95); MPV 10.8 fL (8.0-11.0); Monocytes % 7.2; Platelet Count 258 10^3/uL (130-400); RBC 4.49 10^6/uL (4.36-5.78); RDW 11.7 % (11.8-14.1); RDW-SD 38.5 fL; WBC 7.76 10^3/uL (4.4-10.8)
[2021-11-22] MEDS: Normal Saline 1,000 ML 1000 ML IV (19:34)
[2021-11-22] MEDS: LORazepam 2 MG/ML VIAL 1 MG IVP (19:34)
[2021-11-22] MEDS: Sucralfate 1 GM TAB PO (19:34)
[2021-11-22] MEDS: Famotidine 20 MG/2 ML VIAL IVP (19:34)
[2021-11-22 19:46] LABS: ALT 23 U/L (16-63); AST 20 U/L (15-37); Albumin 3.7 g/dL (3.4-5.0); Alkaline Phosphatase 126 U/L (46-116); Anion Gap 4.6 mmol/L (3-11); BUN 6 mg/dL (7-18); Bilirubin, Total 0.5 mg/dL (0.2-1.0); CO2 29.4 mmol/L (21.0-32.0); CREATININE 0.9 mg/dL (0.70-1.30); Calcium 11.2 mg/dL (8.5-10.1); Chloride 104 mmol/L (98-107); Glucose 90 mg/dL (74-106); Magnesium 1.9 mg/dL (1.8-2.4); Potassium 4.4 mmol/L (3.5-5.1); Sodium 138 mmol/L (136-145); Total Protein 7.6 g/dL (6.4-8.2); Troponin I < 50 ng/L (<or=60)
[2021-11-22 20:05] LABS: D-Dimer 376 ng/mlFEU (<500)
--- NOTE | 2021-11-22 20:23 | DI.VRAD_ITS ---
PROCEDURE INFORMATION: Exam: XR Chest Exam date and time: 11/22/2021 7:45 PM Age: 26 years old Clinical indication: Pain; Chest pressure; Additional info: Acute chest pain TECHNIQUE: Imaging protocol: XR of the chest. Views: 2 views. COMPARISON: CR XR CHEST 2V PA LATERAL 11/12/2021 8:51 AM FINDINGS: Lungs: Unremarkable. No consolidation. Pleural spaces: Unremarkable. No pleural effusion. No pneumothorax. Heart/Mediastinum: Unremarkable. No cardiomegaly. Bones/joints: Unremarkable. IMPRESSION: No acute findings. Dictated and Authenticated by: Brendon Wilson MD. Ordering:JOSEPH Ravi MD
[2021-11-22 22:10] LABS: Troponin I < 50 ng/L (<or=60)
--- NOTE | 2021-11-22 22:40 | ED.PROG_ITS ---
Date of service: 11/22/21 Time of Service: 22:41 Medical Decision Making Care signed out by Dr. Bates, please see documentation regarding initial ED presentation and course. Plan at signout was to follow-up on delta troponin as well as D-dimer and repeat EKG. Repeat EKG was reviewed and interpreted by me: Please see report, no significant changes from prior, no STEMI. Repeat troponin normal with no increase. D-dimer normal. Patient will be discharged to follow-up with primary care physician. Of note patient has had multiple visits to the emergency department with negative work- up to date for discomfort. I am concerned that anxiety is contributing to his presentations. I will ask that care management follow-up with PCP office to ensure timely follow-up . Patient does have hypercalcemia that is being followed by PCP with referral to general surgery for potential parathyroidectomy. Lab Data Lab results reviewed: Yes I reviewed the patient's lab results. Labs: Laboratory Tests Range/Units 11/22/21 11/22/21 11/22/21 19:18 19:18 19:18 WBC (4.4-10.8) 10^3/uL 7.76 RBC (4.36-5.78) 10^6/uL 4.49 Hgb (13.5-17.5) g/dL 13.6 Hct (40.0-50.0) % 40.5 MCV (80-95) fL 90 MCH (27.0-33.0) pg 30.3 MCHC (32.0-36.0) % 33.6 RDW (11.8-14.1) % 11.7 L Plt Count (130-400) 10^3/uL 258 MPV (8.0-11.0) fL 10.8 Immature Gran % 0.3 Neutrophils % 68.0 Lymphocytes % 22.3 Monocytes % 7.2 Eosinophils % 1.8 Basophils % 0.4 Nucleated RBC % (0.0-0.3) % 0.0 Absolute Neutrophils (1.2-6.7) 10^3/uL 5.28 Absolute Lymphocytes (1.2-3.4) 10^3/uL 1.73 Absolute Monocytes (0.1-0.8) 10^3/uL 0.56 Absolute Eosinophils (0.0-0.7) 10^3/uL 0.14 Absolute Basophils (0.0-0.2) 10^3/uL 0.03 D-Dimer (<500) ng/mlFEU 376 Sodium (136-145) mmol/L 138 Potassium (3.5-5.1) mmol/L 4.4 Chloride (98-107) mmol/L 104 Carbon Dioxide (21.0-32.0) mmol/L 29.4 Anion Gap (3-11) mmol/L 4.6 BUN (7-18) mg/dL 6 L Creatinine (0.70-1.30) mg/dL 0.9 Estimated GFR/1.73 m2 (mL/min/1.73m2) >= 60.00 Glucose (74-106) mg/dL 90 Calcium (8.5-10.1) mg/dL 11.2 H Magnesium (1.8-2.4) mg/dL 1.9 Total Bilirubin (0.2-1.0) mg/dL 0.5 AST (15-37) U/L 20 ALT (16-63) U/L 23 Alkaline Phosphatase (46-116) U/L 126 H Troponin I (<or=60) ng/L < 50 Total Protein (6.4-8.2) g/dL 7.6 Albumin (3.4-5.0) g/dL 3.7 Range/Units 11/22/21 21:46 WBC (4.4-10.8) 10^3/uL RBC (4.36-5.78) 10^6/uL Hgb (13.5-17.5) g/dL Hct (40.0-50.0) % MCV (80-95) fL MCH (27.0-33.0) pg MCHC (32.0-36.0) % RDW (11.8-14.1) % Plt Count (130-400) 10^3/uL MPV (8.0-11.0) fL Immature Gran % Neutrophils % Lymphocytes % Monocytes % Eosinophils % Basophils % Nucleated RBC % (0.0-0.3) % Absolute Neutrophils (1.2-6.7) 10^3/uL Absolute Lymphocytes (1.2-3.4) 10^3/uL Absolute Monocytes (0.1-0.8) 10^3/uL Absolute Eosinophils (0.0-0.7) 10^3/uL Absolute Basophils (0.0-0.2) 10^3/uL D-Dimer (<500) ng/mlFEU Sodium (136-145) mmol/L Potassium (3.5-5.1) mmol/L Chloride (98-107) mmol/L Carbon Dioxide (21.0-32.0) mmol/L Anion Gap (3-11) mmol/L BUN (7-18) mg/dL Creatinine (0.70-1.30) mg/dL Estimated GFR/1.73 m2 (mL/min/1.73m2) Glucose (74-106) mg/dL Calcium (8.5-10.1) mg/dL Magnesium (1.8-2.4) mg/dL Total Bilirubin (0.2-1.0) mg/dL AST (15-37) U/L ALT (16-63) U/L Alkaline Phosphatase (46-116) U/L Troponin I (<or=60) ng/L < 50 Total Protein (6.4-8.2) g/dL Albumin (3.4-5.0) g/dL Sign Out Sign Out Data: Sign Out Comment: Follow-up on labs and imaging with plan for delta troponin and EKG. If patient's symptoms improve and work-up unremarkable, will plan for discharge to home with follow-up with his primary doctor. Last updated by Breonna Bates DO at 11/22/21 19:12 Discharge Plan Disposition Patient Disposition: HOME Condition: Stable Discharge Details Clinical Impression: Chest pain, Indigestion Primary Care Provider: Brendon Vivar ED Provider: Lester Bundy Home Meds and New Rx's Prescriptions: New famotidine [Pepcid] 20 mg tablet 20 mg PO BID Qty: 60 0RF Continued buspirone 10 mg tablet 10 mg PO BID Qty: 60 0RF methadone 10 mg/5 mL solution 110 mg PO QAM trazodone 50 mg tablet 50 mg PO QHS PRN (Reason: sleep) Qty: 30 0RF lorazepam 1 mg tablet 1 mg PO BID PRN (Reason: anxiety) Qty: 14 0RF Discharge Instructions Instructions: Chest Pain (ED), Indigestion (ED) Additional Instructions: Your lab work, EKG and imaging today is reassuring and shows no evidence of acute concerning or significant findings. Follow-up with your primary care doctor in 1 week. Return to the emergency department with any worsening or new concerning symptoms. Referrals: Brendon Vivar DO [Primary Care Provider] - Discharge Data Discharge Date/Time-TO BE ENTERED AT DEPARTURE: 11/22/21 23:02 Discharge Physician: Breonna Bates
--- NOTE | 2021-11-23 01:18 | NUR.NOTE ---
Referral to Care Management/frequent ED visits.Nursing Note:
== END 2021-11-22 23:02 | disposition home or self-care (01) ==
PROVIDERS: Physician Assistant; Emergency Provider Student in an Organized Health Care Education/Training Program; PCP Family Medicine
DX: R07.9 Chest pain, unspecified (principal); K30 Functional dyspepsia
CPT/HCPCS: 80053; 93005; 96361; 96374; 96375; 99284; 71046; 83735; 84484; 85025; 85379; 93010; J2060

== ENCOUNTER 2021-11-24 20:07 | Emergency (ER) | payer MEDICAID, SELFPAY ==
[2021-11-24 20:17] VITALS: BP 111/82; PULSE 95; RESP 14; TEMP 36.5; O2SAT 99
[2021-11-24 20:20] VITALS: RESP 18
--- NOTE | 2021-11-24 20:50 | W.ED.GENAD ---
Discharge Plan Disposition Patient Disposition: HOME Condition: Improving Discharge Details Clinical Impression: Anxiety Primary Care Provider: Brendon Vivar ED Provider: Barrington Arciniega Home Meds and New Rx's Prescriptions: Continued buspirone 10 mg tablet 10 mg PO BID Qty: 60 0RF methadone 10 mg/5 mL solution 110 mg PO QAM trazodone 50 mg tablet 50 mg PO QHS PRN (Reason: sleep) Qty: 30 0RF lorazepam 1 mg tablet 1 mg PO BID PRN (Reason: anxiety) Qty: 14 0RF famotidine [Pepcid] 20 mg tablet 20 mg PO BID Qty: 60 0RF Discharge Instructions Instructions: Anxiety (ED) Additional Instructions: I have given you a single dose of lorazepam to take today and again tomorrow night. You have declined to speak with mental health. As we discussed lorazepam is a controlled substance and this medication needs to come from a single provider, please contact your primary care provider on Friday to discuss your medication refill needs, symptoms and need for outpatient reevaluation. I also recommend you check to see if he can be seen by your mental health team sooner than already scheduled on the . Discharge Data Discharge Date/Time-TO BE ENTERED AT DEPARTURE: 11/24/21 21:19 Medical Decision Making This is a 26-year-old gentleman well-known to our ER for similar visits reporting anxiety having run out of his lorazepam Friday night. He states that he is scheduled to be seen by a new outpatient mental health team on the of this month. He has no acute medical concerns or complaints. He is not request to speak with [facility] human services crisis team. He denies any suicidal or homicidal ideations and reports feeling safe. We had a long conversation regarding his anxiety and his lorazepam which is a controlled substance. This needs to be monitored and coming from one provider. I explained to him that I would give him a single 1 mg tablet to go home with tonight and a single tablet to take tomorrow night before bed any additional medication but need to go through his primary care provider. He is thankful and agreeable to this plan. Standard discharge and return precautions were provided. Patient understands, is agreeable to this plan, and has no additional questions or concerns upon discharge. This documentation was generated using [employer] system, please disregard any oddities of phrase or misspellings. Medical Records Medical records reviewed: Yes I reviewed the patient's medical records. HPI General Mode of arrival: ambulatory. Date/Time Provider Initiated Documentation: 11/24/21 20:17. Limitations to Documentation: no limitations. Information obtained by: patient. HPI Narrative: Is a 26-year-old gentleman, past medical history that includes anxiety, former drug user but denies any over the past couple of months, PTSD, presenting to the ER reporting that he ran out of his lorazepam Friday night, is having worsening anxiety this evening and states that he feels as though a stressor is that his uncle recently . He denies any suicidal or homicidal ideations. He denies any acute medical concerns or complaints. Denies recent illness or trauma. Denies fever, chest pain, shortness of breath. Patient does not believe that he needs to speak with mental health at this time. He feels safe and feels as though he can be safely discharged if his anxiety is better controlled. He is requesting a refill for his lorazepam. Related Data Home Medications Medication Instructions Recorded Confirmed buspirone 10 mg tablet 10 mg PO BID #60 tabs 10/18/21 11/24/21 lorazepam 1 mg tablet 1 mg PO BID PRN anxiety #14 tabs 10/25/21 11/24/21 trazodone 50 mg tablet 50 mg PO QHS PRN sleep #30 tabs 10/25/21 11/24/21 methadone 10 mg/5 mL oral solution 110 mg PO QAM 11/16/21 11/24/21 famotidine 20 mg tablet (Pepcid) 20 mg PO BID #60 tabs 11/22/21 Previous Rx's Medication Instructions Recorded buspirone 10 mg tablet 10 mg PO BID #60 tabs 10/18/21 lorazepam 1 mg tablet 1 mg PO BID PRN anxiety #14 tabs 10/25/21 trazodone 50 mg tablet 50 mg PO QHS PRN sleep #30 tabs 10/25/21 famotidine 20 mg tablet (Pepcid) 20 mg PO BID #60 tabs 11/22/21 Allergies Allergy/AdvReac Type Severity Reaction Status Date / Time codeine Allergy Intermediate Verified 11/24/21 20:24 General Stated Complaint: Anxiety ADRIANA: 4 Review of Systems Constitutional Constitutional: Denies fever(s) and Denies weakness Cardiovascular Cardiovascular: Denies chest pain and Denies dyspnea Respiratory Respiratory: Denies cough and Denies dyspnea Gastrointestinal Gastrointestinal: Denies abdominal pain, Denies nausea and Denies vomiting Musculoskeletal Musculoskeletal: Denies numbness and Denies tingling Integumentary/Breasts Skin/Breast: Denies rash Neurologic Neurologic: Denies numbness, Denies tingling and Denies weakness Psychiatric Psychiatric: Reports anxiety, Reports depression, Denies homicidal ideation and Denies suicidal ideation FORMERLY [facility], [facility]–1983 All Active Problems Chest pain (Acute) Indigestion (Acute) Anxiety (Chronic) Pneumonia (Acute) Left-sided chest pain (Acute) Chest wall pain (Acute) Viral URI with cough (Acute) Laryngitis (Acute) Arm pain, left (Acute) Anemia (Chronic) Elevated parathyroid hormone (Acute) Hyperlipidemia (Acute) Family history of coronary arteriosclerosis (Chronic) Father of LA at 50, mother had LA at 42 Family history of multiple endocrine neoplasia, type 1 (Acute) Severe anxiety with panic (Acute) Hypercalcemia (Acute) PTSD (post-traumatic stress disorder) (Acute) Cellulitis (Acute) Medical History Anxiety in acute stress reaction Cocaine use History of heroin abuse Surgical History No significant past surgical history Family History Mother Anxiety Asthma Depression Sister Anxiety Depression Father Cancer lung & stomach Depression Diabetes Hypertension MEN 1 (multiple endocrine neoplasia) Social History Smoking/Tobacco Use Status: Never Smoking risk assessment performed?: Yes Alcohol Intake: never Drug use: Current 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: 2-weeks Adopted: No Caregiver/Support person: No Foster care: No Household members: none Housing: house Number of Children: 0 Communication Needs: None Education Level: high school Do you need help understanding health information?: Never 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 and animals: Yes (Ally) Pets and animals: dog(s) Sexually active: No Do you think of yourself as: straight/heterosexual Current gender identity: male What is your relationship status?: How often do you talk on the phone with friends or family?: twice per week How often do you get together with friends or relatives?: never Do you belong to any clubs or organized social groups?: no Panel score (0-1 are the most socially isolated patients): 0 What type of physical activity do you participate in: walking Duration: 15-30 minutes/day Frequency: 5-6 times per week Maryam/Evangelical: Sabianism Special maryam needs: No Seatbelt use: always Helmet use: Yes Helmet use: always Drive 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 otr flatbed 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 Exam Const General: cooperative, healthy appearing, comfortable, no acute distress and anxious Orientation: alert and awake [facility] Head: normal to inspection, normocephalic and atraumatic Eyes General: appearance normal, both eyes and all related structures Conjunctivae: conjunctivae normal Neck Neck: normal visual inspection, full ROM, trachea midline and supple Resp Effort & Inspection: normal respiratory effort and able to speak in complete sentences Auscultation: clear to auscultation bilaterally Cardio Rate: regular rate Rhythm: regular rhythm GI Palpation: soft and nontender Skin General skin exam: no rashes or lesions noted Neuro General: patient alert, patient awake, patient oriented x3, moves all extremities and no focal motor deficits Cognition: normal cognition Speech: speech normal Gait: normal gait Motor: muscle tone normal throughout Sensory Exam: no sensory deficits noted Extrem General: normal to inspection and full ROM Psych Appearance: grossly normal Mental Status: mental status grossly normal Speech and Movement: speech and movement normal Mood: anxious mood Affect: anxious affect Attitude: cooperative Thought Process: normal Thought Content: normal, no homicidality and suicidality Insight: fair Judgment: fair Course Vital Signs Vital signs: Vital Signs Temperature 36.5 C 11/24/21 20:17 Pulse 95 H 11/24/21 20:17 Respiratory Rate 14 11/24/21 20:17 Blood Pressure 111/82 11/24/21 20:17 Pulse Oximetry 99 11/24/21 20:17 Temperature 36.5 C 11/24/21 20:17 Temperature Source Temporal Artery Scan 11/24/21 20:17 Pulse 95 H 11/24/21 20:17 Respiratory Rate 18 11/24/21 20:20 Respiratory Effort Non-Labored 11/24/21 20:20 Respiratory Depth Normal 11/24/21 20:20 Respiratory Pattern Normal 11/24/21 20:20 Blood Pressure 111/82 11/24/21 20:17 Blood Pressure Position Sitting 11/24/21 20:17 Pulse Oximetry 99 11/24/21 20:17 Oxygen Delivery Method Room Air 11/24/21 20:17 Oxygen Flow Rate 0 11/24/21 20:17 Pain Level 0 11/24/21 20:17
[2021-11-24] MEDS: LORazepam 1 MG TAB 2 MG PO (21:19)
[2021-11-24 21:20] VITALS: BP 111/82; PULSE 95; RESP 18; TEMP 36.5; O2SAT 99
== END 2021-11-24 21:19 | disposition home or self-care (01) ==
PROVIDERS: Emergency Provider Physician Assistant; PCP Family Medicine
DX: F41.8 Other specified anxiety disorders (principal); Z76.0 Encounter for issue of repeat prescription; F19.21 Other psychoactive substance dependence, in remission; Z79.899 Other long term (current) drug therapy; F43.10 Post-traumatic stress disorder, unspecified
CPT/HCPCS: 99283

== ENCOUNTER 2021-11-26 15:42 | Emergency (ER) | payer MEDICAID, SELFPAY ==
[2021-11-26] VITALS (42 sets, daily range): BP systolic 90–127; BP diastolic 54–87; PULSE 60–115; RESP 7–27; TEMP 36.6–36.8; O2SAT 90–100
--- NOTE | 2021-11-26 15:30 | RT.EKG_ITS ---
APPROVED REPORT Exam: Resting ECG Reason for Exam: chest pain Patient Location: E HR:93 bpm ECG Measurements Heart Rate 93 AXIS UT 180 P 43 QRSd 91 QRS 62 QT 339 T 12 QTc 421 Conclusion Sinus rhythm...normal P axis, V-rate 60- [address] elevation, anterior leads...ST >0.15mV in V1-V4 Physician: minimal less than 1mm elevation in V2 similiar to previous ekg from 11/22/21. no depressions . no stemi.
--- NOTE | 2021-11-26 15:45 | DI.RAD_ITS ---
Exam(s) XR CHEST 2V PA LATERAL EXAM: XR CHEST 2V PA LATERAL CLINICAL HISTORY: Chest Pain, SOB. TECHNIQUE: 2D digital imaging was performed. COMPARISON: CR,XR XR CHEST 2V PA LATERAL from 11/22/2021 FINDINGS: 2 views: Heart size is normal. The mediastinum is not widened. Lungs are clear. No infiltrates nor pleural effusions. IMPRESSION: No acute pulmonary findings.No significant change compared to 11/22/2021 DATA REPOSITORY: RADIATION DOSE DELIVERED:
--- NOTE | 2021-11-26 15:54 | ED.GENADUL_ITS ---
Discharge Plan Disposition Patient Disposition: HOME Condition: Stable Discharge Details Clinical Impression: Left-sided chest pain, Chest wall pain, MEN 1 syndrome Primary Care Provider: Brendon Vivar ED Provider: Antoinette Templeton Home Meds and New Rx's Prescriptions: Continued buspirone 10 mg tablet 10 mg PO BID Qty: 60 0RF methadone 10 mg/5 mL solution 110 mg PO QAM lorazepam 1 mg tablet 1 mg PO BID PRN (Reason: anxiety) Qty: 14 0RF famotidine [Pepcid] 20 mg tablet 20 mg PO BID Qty: 60 0RF No Action trazodone 50 mg tablet 50 mg PO QHS PRN (Reason: sleep) Qty: 30 0RF Discharge Instructions Instructions: Chest Wall Pain (ED) Additional Instructions: At this time there is no indication that you are having a heart attack. please keep your PCP appt as previously scheduled tomorrow. Keep your [facility] appt also. Discuss a possible CT chest with your PCP if indicated. Take Ibuprofen or tyenol every 4-6 hours as needed for pain. Referrals: Brendon Vivar DO [Primary Care Provider] - 1 day (As previously scheduled) Discharge Data Discharge Date/Time-TO BE ENTERED AT DEPARTURE: 11/26/21 21:08 Medical Decision Making 26 year old male presents with mideepigastric abd pain and left-sided chest pain which began 1 hr ago while working in garage. He reports increased pain with taking a deep breath and moving. He has a past medical history of PTSD, hypercalcemia, severe anxiety, MEN1 syndrome, parathyroidnoma, hyperlipidemia, family history of chronic urinary arteriosclerosis. EKG reviewed by ER MD Dr. Eagle, ST elevation in V1, V2 old EKG available for review, please see his official report. Cardiac workup ordered including Serial troponins, Aspirin 324mg, GI cocktail and toradol 15mg IV. 1954: Patient reevaluation he reports he is having some left-sided chest pain. Patient has been seen multiple times in the emergency department most recently 2 days ago has had multiple cardiac work-ups including D-dimer negative, chest x- ray has had a negative stress test mid September. He has been referred to [facility] for parathyroidoma. At this time I am awaiting a second troponin EKG, EKG is unchanged from previous. Serial troponins within normal limit. I did discuss to keep PCP appointment as previously scheduled with patient. He verbalizes understanding. Discussed taking Tylenol or ibuprofen Medical Records Medical records reviewed: Yes I reviewed the patient's medical records. Lab Data Lab results reviewed: Yes I reviewed the patient's lab results. Labs: Laboratory Tests Range/Units 11/26/21 11/26/21 11/26/21 16:25 16:25 19:45 WBC (4.4-10.8) 10^3/uL 9.46 RBC (4.36-5.78) 10^6/uL 4.51 Hgb (13.5-17.5) g/dL 13.9 Hct (40.0-50.0) % 39.3 L MCV (80-95) fL 87 MCH (27.0-33.0) pg 30.8 MCHC (32.0-36.0) % 35.4 D RDW (11.8-14.1) % 11.8 Plt Count (130-400) 10^3/uL 267 MPV (8.0-11.0) fL 11.0 Immature Gran % 0.3 Neutrophils % 64.8 Lymphocytes % 24.2 Monocytes % 9.4 Eosinophils % 0.7 Basophils % 0.6 Nucleated RBC % (0.0-0.3) % 0.0 Absolute Neutrophils (1.2-6.7) 10^3/uL 6.12 Absolute Lymphocytes (1.2-3.4) 10^3/uL 2.29 Absolute Monocytes (0.1-0.8) 10^3/uL 0.89 H Absolute Eosinophils (0.0-0.7) 10^3/uL 0.07 Absolute Basophils (0.0-0.2) 10^3/uL 0.06 Sodium (136-145) mmol/L 137 Potassium (3.5-5.1) mmol/L 3.7 Chloride (98-107) mmol/L 102 Carbon Dioxide (21.0-32.0) mmol/L 28.3 Anion Gap (3-11) mmol/L 6.7 BUN (7-18) mg/dL 7 Creatinine (0.70-1.30) mg/dL 1.0 Estimated GFR/1.73 m2 (mL/min/1.73m2) >= 60.00 Glucose (74-106) mg/dL 99 Calcium (8.5-10.1) mg/dL 11.5 H Magnesium (1.8-2.4) mg/dL 1.8 Total Bilirubin (0.2-1.0) mg/dL 0.4 AST (15-37) U/L 15 ALT (16-63) U/L 26 Alkaline Phosphatase (46-116) U/L 128 H Troponin I (<or=60) ng/L < 50 < 50 Total Protein (6.4-8.2) g/dL 7.7 Albumin (3.4-5.0) g/dL 3.8 ECG Data Prior ECG tracings: available for review HPI General Mode of arrival: ambulatory . Date/Time Provider Initiated Documentation: 11/26/21 15:45 . Limitations to Documentation: no limitations . Information obtained by: patient and RN notes reviewed . HPI Narrative: 26 year old male presents with mideepigastric abd pain and left-sided chest pain which began 1 hr ago while working in garage. He reports increased pain with taking a deep breath and moving. He has a past medical history of PTSD, hypercalcemia, severe anxiety, MEN1 syndrome, parathyroidnoma, hyperlipidemia, family history of chronic urinary arteriosclerosis. Related Data Home Medications Medication Instructions Recorded Confirmed buspirone 10 mg tablet 10 mg PO BID #60 tabs 10/18/21 11/26/21 lorazepam 1 mg tablet 1 mg PO BID PRN anxiety #14 tabs 10/25/21 11/26/21 trazodone 50 mg tablet 50 mg PO QHS PRN sleep #30 tabs 10/25/21 11/26/21 methadone 10 mg/5 mL oral solution 110 mg PO QAM 11/16/21 11/26/21 famotidine 20 mg tablet (Pepcid) 20 mg PO BID #60 tabs 11/22/21 11/26/21 Previous Rx's Medication Instructions Recorded buspirone 10 mg tablet 10 mg PO BID #60 tabs 10/18/21 lorazepam 1 mg tablet 1 mg PO BID PRN anxiety #14 tabs 10/25/21 trazodone 50 mg tablet 50 mg PO QHS PRN sleep #30 tabs 10/25/21 famotidine 20 mg tablet (Pepcid) 20 mg PO BID #60 tabs 11/22/21 Allergies Allergy/AdvReac Type Severity Reaction Status Date / Time codeine Allergy Intermediate Verified 11/26/21 15:48 General Stated Complaint: Chest Pain ADRIANA: 3 Review of Systems All systems reviewed & are unremarkable except as noted in HPI and below Cardiovascular Cardiovascular: Reports chest pain, Reports chest pain at rest, Reports chest pain with activity, Denies diaphoresis, Denies syncope, Denies leg edema, Denies radiating jaw, neck or arm pain and Reports dyspnea Respiratory Respiratory: Denies chest congestion, Denies cough, Reports pain with cough, Reports dyspnea, Denies stridor and Denies wheezing Gastrointestinal Gastrointestinal: Denies diarrhea, Denies nausea and Denies vomiting Neurologic Neurologic: Denies syncope Allergic/Immunologic Allergic/Immunologic: Denies wheezing PFSH All Active Problems (Updated 11/26/21 @ 20:40 by Antoinette Templeton) Chest pain (Acute) Indigestion (Acute) Anxiety (Chronic) MEN 1 syndrome (Acute) Pneumonia (Acute) Left-sided chest pain (Acute) Chest wall pain (Acute) Viral URI with cough (Acute) Laryngitis (Acute) Arm pain, left (Acute) Anemia (Chronic) Elevated parathyroid hormone (Acute) Hyperlipidemia (Acute) Family history of coronary arteriosclerosis (Chronic) Father of [place] at 50, mother had [place] at 42 Family history of multiple endocrine neoplasia, type 1 (Acute) Severe anxiety with panic (Acute) Hypercalcemia (Acute) PTSD (post-traumatic stress disorder) (Acute) Cellulitis (Acute) Medical History Anxiety in acute stress reaction Cocaine use History of heroin abuse Surgical History No significant past surgical history Family History Mother Anxiety Asthma Depression Sister Anxiety Depression Father Cancer lung & stomach Depression Diabetes Hypertension MEN 1 (multiple endocrine neoplasia) Social History Smoking/Tobacco Use Status: Never Smoking risk assessment performed?: Yes Alcohol Intake: never Drug use: Current 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: 2-weeks Adopted: No Caregiver/Support person: No Foster care: No Household members: none Housing: house Number of Children: 0 Communication Needs: None Education Level: high school Do you need help understanding health information?: Never 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 and animals: Yes (Ally) Pets and animals: dog(s) Sexually active: No Do you think of yourself as: straight/heterosexual Current gender identity: male What is your relationship status?: How often do you talk on the phone with friends or family?: twice per week How often do you get together with friends or relatives?: never Do you belong to any clubs or organized social groups?: no Panel score (0-1 are the most socially isolated patients): 0 What type of physical activity do you participate in: walking Duration: 15-30 minutes/day Frequency: 5-6 times per week Maryam/Spiritism: Jehovah'S Witness Special maryam needs: No Seatbelt use: always Helmet use: Yes Helmet use: always Drive 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 passenger coach 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 Exam Narrative Exam Narrative: Constitutional: Alert and oriented x3. Appears stated age. Normal body habitus. Head: Normocephalic, no trauma. Eyes: Pupils PERRL, Red reflex noted, EOM's intact. Eyelids symmetrical without lesions, discharge, or swelling. ENT: Bilateral TM's WNL, External ear normal to inspection, no mastoid TTP, swelling, or erythema, Nasal turbinates WNL, no nasal discharge. Normal dentition, Posterior pharynx WNL, no exudate. Chest: RRR, Normal S1, S2, distal pulses intact. No rubs murmurs. He does have pinpoint tenderness to his left axillary area, questionable lymph node palpated which reports increased pain with palpation. Resp: Lungs clear to auscultation bilaterally, no wheezes, rales, or rhonchi. Abdomen: Soft, non-distended, Normoactive bowel sounds all 4 quads. Musculoskeletal: Normal gait, 5/5 strength to all four extremities. Skin: No suspicious rashes or lesions. Capillary refill less than 2 sec. Neurologic: Cranial nerves II-XII intact. Alert and oriented x 3. Motor: No deficits noted. Hematologic/Lymphatic: No ecchymosis, no lymphadenopathy. Course Vital Signs Vital signs: Vital Signs Temperature 36.8 C 11/26/21 15:45 Pulse 115 H 11/26/21 15:45 Blood Pressure 115/70 11/26/21 15:45 Pulse Oximetry 98 11/26/21 15:45 Temperature 36.8 C 11/26/21 15:45 Temperature Source Temporal Artery Scan 11/26/21 15:45 Pulse 115 H 11/26/21 15:45 Respiratory Rate 18 11/26/21 15:51 Respiratory Effort Short of Breath 11/26/21 15:51 Respiratory Depth Normal 11/26/21 15:51 Respiratory Pattern Normal 11/26/21 15:51 Blood Pressure 115/70 11/26/21 15:45 Blood Pressure Position Sitting 11/26/21 15:45 Pulse Oximetry 98 11/26/21 15:45 Oxygen Delivery Method Room Air 11/26/21 15:45 Oxygen Flow Rate 0 11/26/21 15:45
[2021-11-26] MEDS: Aspirin 81 MG CHEW 324 MG CH (16:34)
[2021-11-26] MEDS: Ketorolac 15 MG/ML VIAL IVP (16:34)
[2021-11-26 16:38] LABS: Abs Immature Grans 0.03 10^3/uL (0.0-0.06); Absolute Basophil Count 0.06 10^3/uL (0.0-0.2); Absolute Eosinophil Count 0.07 10^3/uL (0.0-0.7); Absolute Lymphocyte Count 2.29 10^3/uL (1.2-3.4); Absolute Monocyte Count 0.89 10^3/uL (0.1-0.8); Absolute Neutrophil Count 6.12 10^3/uL (1.2-6.7); Basophils % 0.6; Eosinophils % 0.7; HCT 39.3 % (40.0-50.0); HGB 13.9 g/dL (13.5-17.5); Immature Grans % 0.3; Lymphocytes % 24.2; MCH 30.8 pg (27.0-33.0); MCV 87 fL (80-95); Monocytes % 9.4; Neutrophils % 64.8; Platelet Count 267 10^3/uL (130-400); RBC 4.51 10^6/uL (4.36-5.78); RDW 11.8 % (11.8-14.1); RDW-SD 37.5 fL; WBC 9.46 10^3/uL (4.4-10.8)
[2021-11-26 16:41] LABS: MCHC 35.4 % (32.0-36.0)
[2021-11-26 17:11] LABS: ALT 26 U/L (16-63); AST 15 U/L (15-37); Albumin 3.8 g/dL (3.4-5.0); Alkaline Phosphatase 128 U/L (46-116); Anion Gap 6.7 mmol/L (3-11); BUN 7 mg/dL (7-18); Bilirubin, Total 0.4 mg/dL (0.2-1.0); CO2 28.3 mmol/L (21.0-32.0); Calcium 11.5 mg/dL (8.5-10.1); Chloride 102 mmol/L (98-107); Glucose 99 mg/dL (74-106); Magnesium 1.8 mg/dL (1.8-2.4); Potassium 3.7 mmol/L (3.5-5.1); Sodium 137 mmol/L (136-145); Total Protein 7.7 g/dL (6.4-8.2); Troponin I < 50 ng/L (<or=60)
--- NOTE | 2021-11-26 18:02 | DI.VRAD_ITS ---
PROCEDURE INFORMATION: Exam: XR Chest Exam date and time: 11/26/2021 4:58 PM Age: 26 years old Clinical indication: Shortness of breath; Patient HX: Chest pain, SOB TECHNIQUE: Imaging protocol: XR of the chest. Views: 2 views. COMPARISON: CR XR CHEST 2V PA LATERAL 11/22/2021 7:45 PM FINDINGS: Lungs: The lungs are clear. There is no pulmonary vascular congestion. Pleural spaces: There are no pleural effusions present. There is no evidence of pneumothorax. Heart/Mediastinum: The cardiomediastinal silhouette is within normal limits. Bones/joints: Unremarkable. IMPRESSION: No active cardiopulmonary disease identified. Dictated and Authenticated by: Pedro Wetzel MD. Ordering:CHRYSTAL Curry MD
[2021-11-26] MEDS: Normal Saline 500 ML 999 ML IV (18:40)
--- NOTE | 2021-11-26 19:30 | RT.EKG_ITS ---
APPROVED REPORT Exam: Resting ECG Reason for Exam: chest pain Patient Location: E HR:66 bpm ECG Measurements Heart Rate 66 AXIS SC 215 P 45 QRSd 91 QRS 45 QT 368 T 21 QTc 387 Conclusion Sinus rhythm...normal P axis, V-rate 60- 99 Prolonged SC interval...SC >210, V-rate 50- 90 Physician: Physician: continued minimal less than 1mm elevation in V2 similiar to previous ekg from and earlier ekg.. no depressions. no stemi. unchanged.
[2021-11-26 20:22] LABS: Troponin I < 50 ng/L (<or=60)
== END 2021-11-26 21:08 | disposition home or self-care (01) ==
PROVIDERS: Emergency Provider Registered Nurse Emergency; PCP Family Medicine
DX: R07.89 Other chest pain (principal); E31.21 Multiple endocrine neoplasia [MEN] type I
CPT/HCPCS: 36415; 80053; 93005; 96361; 96374; 99284; 71046; 83735; 84484; 85025; 93010; J1885

== ENCOUNTER → 2021-11-30 00:19 | Outpatient (CLI) | payer MEDICAID, SELFPAY | PROVIDERS: PCP Family Medicine; Visit Provider Physician Assistant Medical ==

== ENCOUNTER 2021-11-30 20:06 | Observation (INO) | payer MEDICAID, SELFPAY ==
[2021-11-30 20:14] VITALS: BP 120/69; PULSE 102; RESP 18; TEMP 36.6; O2SAT 94
--- NOTE | 2021-11-30 20:41 | ED.GENADUL_ITS ---
Discharge Plan Disposition Patient Disposition: STILL A PATIENT Condition: Stable Discharge Details Clinical Impression: Depression, Suicidal ideation Admit Date/Time: 12/01/21 11:35 Admit Provider: Barrington Gupta Attending Provider: Barrington Gupta Primary Care Provider: Brendon Vivar ED Provider: Lester Bundy Discharge Data Discharge Date/Time-TO BE ENTERED AT DEPARTURE: 12/01/21 12:19 Medical Decision Making <Breonna aBtes DO - Last Filed: 11/30/21 23:20> 2019 -- 26-year-old male with a history of anxiety, panic attacks, PTSD and elevated parathyroid hormone who presents to the ED for depression and suicidal ideation. Has experienced multiple recent losses of family members. Denies having a support system. He admits to visual hallucinations yesterday but is nontoxic-appearing with normal vitals. He is well-known to the emergency department and he appears that neurologic baseline. No labs indicated based on smart medical clearance form. We will call mental health for evaluation. 2129 --patient evaluated by [facility] and plan is to seek placement. Patient is voluntary. [facility] notes that there will likely not be any availability for placement this weekend. Nursing cage/vault supervisor advised holding in the ED at this time pending bed availability. 0 --Case endorsed to Dr. Crabtree to continue to monitor overnight while awaiting placement. Consider admission if there is bed availability on the floor. Medical Records Medical records reviewed: Yes I reviewed the patient's medical records. <Ricardo Crabtree MD - Last Filed: 12/01/21 02:56> 2019 -- 26-year-old male with a history of anxiety, panic attacks, PTSD and elevated parathyroid hormone who presents to the ED for depression and suicidal ideation. Has experienced multiple recent losses of family members. Denies having a support system. He admits to visual hallucinations yesterday but is nontoxic-appearing with normal vitals. He is well-known to the emergency department and he appears that neurologic baseline. No labs indicated based on smart medical clearance form. We will call mental health for evaluation. 2129 --patient evaluated by [facility] and plan is to seek placement. Patient is voluntary. [facility] notes that there will likely not be any availability for placement this weekend. Nursing cage/vault supervisor advised holding in the ED at this time pending bed availability. 2320 --Case endorsed to Dr. Crabtree to continue to monitor overnight while awaiting placement. Consider admission if there is bed availability on the floor. pt signed out to me, Dr. crabtree, and he is here for depression/si and is voluntary, currently calm and cooperative. Will continue to monitor until bed placement is found or admit to inpatient here if beds available HPI <Breonna Giuseppe Stonetesha, - Last Filed: 11/30/21 23:20> General Mode of arrival: ambulatory . Date/Time Provider Initiated Documentation: 11/30/21 20:25 . Limitations to Documentation: no limitations . Information obtained by: patient . HPI Narrative: Patient is a 26-year-old male well-known to the emergency department with multiple visits with a history of anxiety, panic attacks, PTSD, elevated parathyroid hormone presents to the ED with depression and suicidal ideation. Patient states he has been thinking about the of his father that occurred 1 year ago in addition to his aunt who hung herself 1 month ago and his uncle who 2 weeks ago and states it all came down it once today and he is feeling depressed and suicidal. Patient states he has a plan to overdose on pills which she states he has done previously approximately 1 to 2 months ago. Patient states she does not have access to firearms. Patient admits to a visual hallucination yesterday and states that I thought I saw a ghost at home. He denies any fever, vomiting, diarrhea, alcohol or drug use or auditory hallucinations. He states he spoke to Augustus with [facility] and was advised to come to the emergency department. Patient drove himself here. He also states he has not taken his methadone for the past week as he does not want to take methadone anymore. He denies any withdrawal symptoms at this time. Related Data Home Medications Medication Instructions Recorded Confirmed lorazepam 1 mg tablet 1 mg PO BID PRN anxiety #14 tabs 10/25/21 12/01/21 trazodone 50 mg tablet 50 mg PO QHS PRN sleep #30 tabs 10/25/21 12/01/21 methadone 10 mg/5 mL oral solution 110 mg PO QAM 11/16/21 12/01/21 buspirone 10 mg tablet 10 mg PO QHS 12/01/21 12/01/21 Previous Rx's Medication Instructions Recorded lorazepam 1 mg tablet 1 mg PO BID PRN anxiety #14 tabs 10/25/21 trazodone 50 mg tablet 50 mg PO QHS PRN sleep #30 tabs 10/25/21 Allergies Allergy/AdvReac Type Severity Reaction Status Date / Time codeine Allergy Intermediate Verified 12/01/21 21:12 General Stated Complaint: PsychEval ADRIANA: 2 Review of Systems <Breonna Bates DO - Last Filed: 11/30/21 23:20> All systems reviewed & are unremarkable except as noted in HPI and below Constitutional Constitutional: Denies chills, Denies excessive sweating, Denies fatigue, Denies fever(s), Denies weakness and Denies weight loss Eyes Eyes: Reports system reviewed and no additional complaints, except as documented and Denies blurry vision ENT Ears, Nose, Mouth, and Throat: Denies vertigo, Denies dizziness, Denies otalgia, Denies nasal congestion, Denies sore throat and Denies throat swelling Cardiovascular Cardiovascular: Denies chest pain, Denies syncope, Denies rapid heart rate and Denies dyspnea Respiratory Respiratory: Denies chest congestion, Denies cough, Denies pain on inspiration and Denies dyspnea Gastrointestinal Gastrointestinal: Denies abdominal pain, Denies diarrhea and Denies vomiting Genitourinary Genitourinary: Denies hematuria, Denies dysuria and Denies flank pain Musculoskeletal Musculoskeletal: Denies back pain and Denies joint swelling Integumentary/Breasts Skin/Breast: Denies lesions and Denies rash Neurologic Neurologic: Denies behavioral changes, Denies confusion, Denies vertigo, Denies dizziness, Denies syncope, Denies localized weakness and Denies weakness Psychiatric Psychiatric: Denies behavioral changes, Denies confusion, Reports depression, Reports visual hallucinations and Reports suicidal ideation Endocrine Endocrine: Denies excessive sweating and Denies fatigue Hematologic/Lymphatic Hematologic/Lymphatic: Denies easy bruising and Denies lymphadenopathy Allergic/Immunologic Allergic/Immunologic: Denies throat swelling PFSH <DO Dasha Hernandez Last Filed: 11/30/21 23:20> All Active Problems (Updated 12/02/21 @ 00:03 by HAMMAD WILEY) History of heroin abuse (Acute) Chest pain (Acute) Indigestion (Acute) Anxiety (Chronic) MEN 1 syndrome (Acute) Depression (Chronic) Suicidal ideation (Acute) Pneumonia (Acute) Left-sided chest pain (Acute) Chest wall pain (Acute) Viral URI with cough (Acute) Laryngitis (Acute) Elevated parathyroid hormone (Acute) Hyperlipidemia (Acute) Family history of coronary arteriosclerosis (Chronic) Father of [place] at 50, mother had [place] at 42 Family history of multiple endocrine neoplasia, type 1 (Acute) Severe anxiety with panic (Acute) Hypercalcemia (Acute) PTSD (post-traumatic stress disorder) (Acute) Cellulitis (Acute) Medical History Anxiety in acute stress reaction Cocaine use History of heroin abuse Surgical History No significant past surgical history Family History Mother Anxiety Asthma Depression Sister Anxiety Depression Father Cancer lung & stomach Depression Diabetes Hypertension MEN 1 (multiple endocrine neoplasia) Social History Smoking/Tobacco Use Status: Never Smoking risk assessment performed?: Yes Alcohol Intake: never Drug use: Current 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: 1 month clean Adopted: No Caregiver/Support person: No Foster care: No Household members: none Housing: house Number of Children: 0 Communication Needs: None Education Level: high school Do you need help understanding health information?: Never 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 and animals: Yes (Ally) Pets and animals: dog(s) Sexually active: No Do you think of yourself as: straight/heterosexual Current gender identity: male What is your relationship status?: How often do you talk on the phone with friends or family?: twice per week How often do you get together with friends or relatives?: never Do you belong to any clubs or organized social groups?: no Panel score (0-1 are the most socially isolated patients): 0 What type of physical activity do you participate in: walking Duration: 15-30 minutes/day Frequency: 5-6 times per week Maryam/Caodaism: Restoration Special maryam needs: No Seatbelt use: always Helmet use: Yes Helmet use: always Drive 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 auto carrier driver: No Do you feel safe at home: No (not with myself) Exam <Breonna J Bugbee, DO - Last Filed: 11/30/21 23:20> Const General: cooperative and other (tearful, crying) Orientation: alert, awake and oriented x3 HENMT Head: normal to inspection Ears: hearing grossly normal bilaterally, external ears normal and TM's normal bilaterally General nose exam: external nose normal Face and sinus: normal facial exam Mouth: oral mucosae normal Teeth and gingiva: dentition normal Throat: posterior oropharynx normal Eyes General: appearance normal, both eyes and all related structures Eyelids: eyelids normal Pupils: PERRL EOM: EOM intact bilaterally Neck Neck: normal visual inspection Lymphatic: no lymphadenopathy noted Chest Chest: normal inspection of the chest Resp Effort & Inspection: normal respiratory effort and able to speak in complete sentences Auscultation: clear to auscultation bilaterally Cardio Rate: regular rate Rhythm: regular rhythm Back/Spine/Pelvis Back: no CVA tenderness Skin General skin exam: no rashes or lesions noted Neuro General: patient alert and patient awake Cognition: normal cognition Speech: speech normal Gait: normal gait Motor: muscle tone normal throughout Sensory Exam: no sensory deficits noted Extrem General: normal to inspection, full ROM and capillary refill normal Psych Appearance: grossly normal Mental Status: mental status grossly normal Speech and Movement: speech and movement normal Affect: normal affect Thought Process: normal Course <Breonna Bates DO - Last Filed: 11/30/21 23:20> Vital Signs Vital signs: Vital Signs Temperature 97.9 F 11/30/21 20:14 Pulse 102 H 11/30/21 20:14 Respiratory Rate 18 11/30/21 20:14 Blood Pressure 120/69 11/30/21 20:14 Pulse Oximetry 94 11/30/21 20:14 Temperature 97.9 F 11/30/21 20:14 Temperature Source Skin 11/30/21 20:14 Pulse 102 H 11/30/21 20:14 Respiratory Rate 18 11/30/21 20:14 Blood Pressure 120/69 11/30/21 20:14 Blood Pressure Position Sitting 11/30/21 20:14 Pulse Oximetry 94 11/30/21 20:14 Pain Level 0 11/30/21 20:14 Sign Out <Breonna Bates DO - Last Filed: 11/30/21 23:20> Sign Out Data: Sign Out Comment: Depressed and suicidal. Voluntary. Medically cleared with use of smart clearance form. Mental health is seeking placement and likely no placement available this weekend. Consider admission to the floor if bed availability. Last updated by Breonna Bates DO at 11/30/21 22:42 Sign Out Comment: voluntary for depression and SI no issues overnight Last updated by Ricardo Crabtree MD at 12/01/21 00:26
[2021-11-30 23:49] LABS: Source Nasal/Nares
[2021-12-01 00:38] LABS: COVID-19 PCR Negative (Negative)
[2021-12-01] MEDS: Methadone Liquid 10 MG/ML 110 MG PO (08:40)
--- NOTE | 2021-12-01 11:39 | W.PM.HP.N ---
Date of service: 12/01/21 Time of Service: 11:40 Assessment and Plan Assessment and plan (1) Suicidal ideation: Status: Acute Assessment and plan: here on a voluntary basis awaiting an inpatient psychiatric bed no behavioral issues will continue CPSO and routine suicidal precautions was medically cleared in the ED and remains medically stable. (2) History of heroin abuse: Status: Acute Assessment and plan: given home dosing in the ED this am. (3) Discharge planning issues: Status: Acute Assessment and plan: mental health and case management following awaiting an inpatient psychiatric bed, voluntary discussed with DR Gupta History of Present Illness History of Present Illness Chief Complaint: suicidal ideation Narrative: see discharge summary, patient admitted and discharged same day Review of Systems All systems reviewed & are unremarkable except as noted in HPI and below PFSH All Active Problems (Updated 12/01/21 @ 12:07 by Anna Ocampo NP) Discharge planning issues (Acute) History of heroin abuse (Acute) Chest pain (Acute) Indigestion (Acute) Anxiety (Chronic) MEN 1 syndrome (Acute) Depression (Chronic) Suicidal ideation (Acute) Pneumonia (Acute) Left-sided chest pain (Acute) Chest wall pain (Acute) Viral URI with cough (Acute) Laryngitis (Acute) Elevated parathyroid hormone (Acute) Hyperlipidemia (Acute) Family history of coronary arteriosclerosis (Chronic) Father of [place] at 50, mother had [place] at 42 Family history of multiple endocrine neoplasia, type 1 (Acute) Severe anxiety with panic (Acute) Hypercalcemia (Acute) PTSD (post-traumatic stress disorder) (Acute) Cellulitis (Acute) Medical History Anxiety in acute stress reaction Cocaine use History of heroin abuse Surgical History No significant past surgical history Family History Mother Anxiety Asthma Depression Sister Anxiety Depression Father Cancer lung & stomach Depression Diabetes Hypertension MEN 1 (multiple endocrine neoplasia) Social History Smoking/Tobacco Use Status: Never Smoking risk assessment performed?: Yes Alcohol Intake: never Drug use: Current 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: 2-weeks Adopted: No Caregiver/Support person: No Foster care: No Household members: none Housing: house Number of Children: 0 Communication Needs: None Education Level: high school Do you need help understanding health information?: Never 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 and animals: Yes (Ally) Pets and animals: dog(s) Sexually active: No Do you think of yourself as: straight/heterosexual Current gender identity: male What is your relationship status?: How often do you talk on the phone with friends or family?: twice per week How often do you get together with friends or relatives?: never Do you belong to any clubs or organized social groups?: no Panel score (0-1 are the most socially isolated patients): 0 What type of physical activity do you participate in: walking Duration: 15-30 minutes/day Frequency: 5-6 times per week Maryam/Rastafarian: Faith Special maryam needs: No Seatbelt use: always Helmet use: Yes Helmet use: always Drive 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 Meds Allergies and Home Medications Allergies Allergy/AdvReac Type Severity Reaction Status Date / Time codeine Allergy Intermediate Verified 11/30/21 20:23 Home Medications Medication Instructions Recorded Confirmed Type lorazepam 1 mg tablet 1 mg PO BID PRN anxiety #14 tabs 10/25/21 11/30/21 Rx trazodone 50 mg tablet 50 mg PO QHS PRN sleep #30 tabs 10/25/21 11/30/21 Rx methadone 10 mg/5 mL oral solution 110 mg PO QAM 11/16/21 11/30/21 History buspirone 10 mg tablet 20 mg PO QHS 12/01/21 12/01/21 History Exam Const General: cooperative Orientation: alert, awake and oriented x3 HENMT Head: normal to inspection Ears: external ears normal Face and sinus: normal facial exam Mouth: oral mucosae normal Eyes General: appearance normal, both eyes and all related structures Neck Neck: normal visual inspection Chest Chest: normal inspection of the chest Resp Effort & Inspection: normal respiratory effort and able to speak in complete sentences Cardio Rate: regular rate Rhythm: regular rhythm Skin General skin exam: no rashes or lesions noted Neuro General: patient alert and patient awake Cognition: normal cognition Speech: speech normal Gait: normal gait Motor: muscle tone normal throughout Sensory Exam: no sensory deficits noted Extrem General: normal to inspection, full ROM and capillary refill normal Psych Appearance: grossly normal Mental Status: mental status grossly normal Speech and Movement: speech and movement normal Mood: congruent mood Affect: normal affect Thought Process: normal Results Labs Labs: Laboratory Results - last 24 hr 11/30/21 23:40 COVID-19 Source Nasal/Nares SARS-CoV-2 (PCR) Negative Last Vital Signs Temp 36.6 C 11/30/21 20:14 Pulse 102 H 11/30/21 20:14 Resp 18 11/30/21 20:14 BP 120/69 11/30/21 20:14 Pulse Ox 94 11/30/21 20:14
[2021-12-01 12:30] VITALS: BP 123/79; PULSE 66; RESP 22; TEMP 36.5; O2SAT 99
--- NOTE | 2021-12-01 14:05 | W.PM.DS.N ---
Date of service: 12/01/21 Time of Service: 14:05 DS: Diagnosis Discharge Diagnosis (1) Suicidal ideation: Status: Acute (2) History of heroin abuse: Status: Acute Discharge Plan Disposition Patient Disposition: HOME Condition: Stable Discharge Details Reason For Visit: suicidal ideation Admit Date/Time: 12/01/21 11:35 Admit Provider: Barrington Gupta Attending Provider: Barrington Gupta Primary Care Provider: Brendon Vivar Hospital Course Hospital Course: Patient is a 26-year-old male well-known to the emergency department with multiple visits with a history of anxiety, panic attacks, PTSD, elevated parathyroid hormone presents to the ED with depression and suicidal ideation due to multiple recent losses of family members. ?He was also experiencing visual hallucination. He was medically screened in the ED and cleared for voluntary inpatient psychiatric treatment. Apparently a contributing factor to his symptoms were lack of sleep and now after having a restful night, he denies suicidal ideation. He was screened again by mental health and is deemed appropriate for a safety plan with outpatient follow up. He is discharged to home with no new services or medication changes. discussed with Dr Gupta Home Meds and New Rx's Prescriptions: Continued methadone 10 mg/5 mL solution 110 mg PO QAM trazodone 50 mg tablet 50 mg PO QHS PRN (Reason: sleep) Qty: 30 0RF lorazepam 1 mg tablet 1 mg PO BID PRN (Reason: anxiety) Qty: 14 0RF buspirone 10 mg tablet 20 mg PO QHS Discharge Instructions Instructions: Depression (DC), Suicide Prevention (DC) Additional Instructions: follow safety plan as outlined. return to ED for new or worsening symptoms. Stand Alone Forms: Nursing Discharge Form Referrals: [facility] [Provider Group] Brendon Vivar DO [Primary Care Provider] - Activity:: Activity as Tolerated Equipment/Supplies:: No Equipment Needed Diet:: As Tolerated Discharge Orders Discharge Orders: Discharge Order (Routine); Ordered 12/01/21 Ordered By: Anna Ocampo DS: Summary Time Spent with Patient providing and/or coordinating discharge services: Less than 30 minutes Status at Discharge Functional status at discharge: independent ambulation Overall status at discharge: patient is back to baseline Mental Status: mental status grossly normal Speech and Movement: speech and movement normal Mood: congruent mood Affect: normal affect Exam Const General: cooperative Orientation: alert, awake and oriented x3 HENMT Head: normal to inspection Ears: external ears normal Face and sinus: normal facial exam Mouth: oral mucosae normal Eyes General: appearance normal, both eyes and all related structures Neck Neck: normal visual inspection Chest Chest: normal inspection of the chest Resp Effort & Inspection: normal respiratory effort and able to speak in complete sentences Cardio Rate: regular rate Rhythm: regular rhythm Skin General skin exam: no rashes or lesions noted Neuro General: patient alert and patient awake Cognition: normal cognition Speech: speech normal Gait: normal gait Motor: muscle tone normal throughout Sensory Exam: no sensory deficits noted Extrem General: normal to inspection, full ROM and capillary refill normal Psych Appearance: grossly normal Mental Status: mental status grossly normal Speech and Movement: speech and movement normal Mood: congruent mood Affect: normal affect Thought Process: normal DS: Data Vitals/I&O Vitals and I&O: Vital Signs Temperature 36.5 C 12/01/21 12:30 Temperature Source Tympanic 12/01/21 12:30 Pulse 66 12/01/21 12:30 Pulse Rhythm Regular 12/01/21 12:49 Respiratory Rate 22 12/01/21 12:30 Respiratory Effort Non-Labored 12/01/21 12:49 Respiratory Depth Normal 12/01/21 12:49 Respiratory Pattern Normal 12/01/21 12:49 Blood Pressure 123/79 12/01/21 12:30 Blood Pressure Position Sitting 11/30/21 20:14 Pulse Oximetry 99 12/01/21 12:30 Oxygen Delivery Method Room Air 12/01/21 12:30 Oxygen Flow Rate 0 12/01/21 12:30 Pain Level 0 12/01/21 12:19 Intake & Output 11/30/21 12/01/21 12/01/21 23:59 11:59 23:59 Weight 96.615 kg Data Completed and Pending Labs on day of discharge: Labs from last 24 hours 11/30/21 23:40 COVID-19 Source Nasal/Nares SARS-CoV-2 (PCR) Negative PFSH All Active Problems (Updated 12/01/21 @ 12:07 by Anna Ocampo NP) Discharge planning issues (Acute) History of heroin abuse (Acute) Chest pain (Acute) Indigestion (Acute) Anxiety (Chronic) MEN 1 syndrome (Acute) Depression (Chronic) Suicidal ideation (Acute) Pneumonia (Acute) Left-sided chest pain (Acute) Chest wall pain (Acute) Viral URI with cough (Acute) Laryngitis (Acute) Elevated parathyroid hormone (Acute) Hyperlipidemia (Acute) Family history of coronary arteriosclerosis (Chronic) Father of [place] at 50, mother had [place] at 42 Family history of multiple endocrine neoplasia, type 1 (Acute) Severe anxiety with panic (Acute) Hypercalcemia (Acute) PTSD (post-traumatic stress disorder) (Acute) Cellulitis (Acute) Medical History Anxiety in acute stress reaction Cocaine use History of heroin abuse Surgical History No significant past surgical history Family History Mother Anxiety Asthma Depression Sister Anxiety Depression Father Cancer lung & stomach Depression Diabetes Hypertension MEN 1 (multiple endocrine neoplasia) Social History Smoking/Tobacco Use Status: Never Smoking risk assessment performed?: Yes Alcohol Intake: never Drug use: Current 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: 2-weeks Adopted: No Caregiver/Support person: No Foster care: No Household members: none Housing: house Number of Children: 0 Communication Needs: None Education Level: high school Do you need help understanding health information?: Never 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 and animals: Yes (Ally) Pets and animals: dog(s) Sexually active: No Do you think of yourself as: straight/heterosexual Current gender identity: male What is your relationship status?: How often do you talk on the phone with friends or family?: twice per week How often do you get together with friends or relatives?: never Do you belong to any clubs or organized social groups?: no Panel score (0-1 are the most socially isolated patients): 0 What type of physical activity do you participate in: walking Duration: 15-30 minutes/day Frequency: 5-6 times per week Maryam/Samaritan: Scientologist Special mrayam needs: No Seatbelt use: always Helmet use: Yes Helmet use: always Drive 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
== END 2021-12-01 14:45 | disposition home or self-care (01) ==
LOC: ER 12-01 08:15 → MS 12-01 12:21
PROVIDERS: Physician Assistant; Admitting Provider Internal Medicine; Emergency Provider Student in an Organized Health Care Education/Training Program; PCP Family Medicine; Visit Provider Internal Medicine
DX: F32.A Depression, unspecified (principal); R45.851 Suicidal ideations; F41.0 Panic disorder [episodic paroxysmal anxiety]; F43.10 Post-traumatic stress disorder, unspecified; R44.1 Visual hallucinations; F11.20 Opioid dependence, uncomplicated; E31.21 Multiple endocrine neoplasia [MEN] type I; R79.89 Other specified abnormal findings of blood chemistry; Z82.49 Family history of ischemic heart disease and other diseases of the circulatory system; Z72.820 Sleep deprivation; Z20.822 Contact with and (suspected) exposure to COVID-19
CPT/HCPCS: 87635; 99285; 99219; G0378

== ENCOUNTER 2021-12-01 20:58 | Inpatient (IN) | payer MEDICAID, SELFPAY ==
--- NOTE | 2021-12-01 21:00 | RT.EKG_ITS ---
APPROVED REPORT Exam: Resting ECG Reason for Exam: chest pain Patient Location: E HR:103 bpm ECG Measurements Heart Rate 103 AXIS KS 181 P 65 QRSd 98 QRS 66 QT 341 T 29 QTc 448 Conclusion Sinus tachycardia...rate> [address] elevation, anterior leads...ST >0.15mV in V1-V4 sinus tachycardia, normal axis, likely J point early repol in anterior leads, unchanged from recent e kg
[2021-12-01 21:02] VITALS: BP 122/78; PULSE 109; RESP 20; TEMP 37.2; O2SAT 100
[2021-12-01] MEDS: LORazepam 1 MG TAB 2 MG PO (21:29)
[2021-12-01 22:04] VITALS: PULSE 74; O2SAT 97
--- NOTE | 2021-12-01 22:04 | W.ED.GENAD ---
Discharge Plan Disposition Patient Disposition: [facility] INPATIENT Condition: Serious Discharge Details Clinical Impression: Feeling suicidal, Anxiety, Depression Admit Date/Time: 12/02/21 09:22 Admit Provider: Barrington Gupta Attending Provider: Barrington Gupta Primary Care Provider: Brendon Vivar ED Provider: Lester Bundy Discharge Data Discharge Date/Time-TO BE ENTERED AT DEPARTURE: 12/02/21 10:07 Medical Decision Making Patient has likely having anxiety attack upon initial assessment, after 2 mg of p.o. Ativan he states that he is feeling significantly improved He has not hypoxic, his lungs are clear to auscultation and he is resting comfortably in the room He was experiencing some suicidality earlier today but denies any attempts at harming self. Mental health have reevaluated this patient and are seeking voluntary placement at this time Patient has been calm and cooperative His tox screen is positive for cocaine and methadone both of which she tested positive for in the last couple days Is pending His EKG does not show acute abnormality I see no indication for ordering additional testing at this time as patient has been evaluated numerous times at the facility His smart form is now negative after performing EKG Fully alert, oriented, of decisional capacity Care will be transitioned to Dr. Cm pending likely admission in the morning as a voluntary status pt Medical Records Medical records reviewed: Yes I reviewed the patient's medical records. Lab Data Lab results reviewed: Yes I reviewed the patient's lab results. HPI General Date/Time Provider Initiated Documentation: 12/01/21 21:00. HPI Narrative: This 26-year-old male with history of chronic chest pain, M EN 1 syndrome, heroin abuse on methadone with depression and anxiety presents with recurrent suicidal ideation, depression, and worsening anxiety. He states he was actually hospitalized in preparation for placement and felt safe this morning and was therefore discharged home with safety plan in place. He states that he became frustrated with his situation with the family at home and has now had recurrent suicidal ideation patient and is having a panic attack. He is a but he developed chest pain and shortness of breath similar to his previous. He did not take any medication prior to arrival. He denies any calf pain or swelling. He denies any illicit drug use. He denies specific plan to harm himself. Related Data Home Medications Medication Instructions Recorded Confirmed lorazepam 1 mg tablet 1 mg PO BID PRN anxiety #14 tabs 05/12/22 06/18/22 trazodone 50 mg tablet 50 mg PO QHS PRN sleep #30 tabs 10/25/21 12/01/21 methadone 10 mg/5 mL oral solution 110 mg PO QAM 11/16/21 12/01/21 buspirone 10 mg tablet 10 mg PO QHS 12/01/21 12/01/21 Previous Rx's Medication Instructions Recorded lorazepam 1 mg tablet 1 mg PO BID PRN anxiety #14 tabs 10/25/21 trazodone 50 mg tablet 50 mg PO QHS PRN sleep #30 tabs 10/25/21 Allergies Allergy/AdvReac Type Severity Reaction Status Date / Time codeine Allergy Intermediate Verified 12/01/21 21:12 General Stated Complaint: PsychEval ADRIANA: 2 Review of Systems All systems reviewed & are unremarkable except as noted in HPI and below PFSH All Active Problems (Updated 12/04/21 @ 00:04 by HAMMAD WILEY) Anxiety (Chronic) Depression (Chronic) Chest pain (Acute) Indigestion (Acute) Anxiety (Chronic) MEN 1 syndrome (Acute) Depression (Chronic) Suicidal ideation (Acute) Pneumonia (Acute) Left-sided chest pain (Acute) Chest wall pain (Acute) Viral URI with cough (Acute) Laryngitis (Acute) Elevated parathyroid hormone (Acute) Hyperlipidemia (Acute) Family history of coronary arteriosclerosis (Chronic) Father of [place] at 50, mother had [place] at 42 Family history of multiple endocrine neoplasia, type 1 (Acute) Severe anxiety with panic (Acute) Hypercalcemia (Acute) PTSD (post-traumatic stress disorder) (Acute) Cellulitis (Acute) Medical History Anxiety in acute stress reaction Cocaine use Surgical History No significant past surgical history Family History Mother Anxiety Asthma Depression Sister Anxiety Depression Father Cancer lung & stomach Depression Diabetes Hypertension MEN 1 (multiple endocrine neoplasia) Social History Smoking/Tobacco Use Status: Never Smoking risk assessment performed?: Yes Alcohol Intake: never Drug use: Current 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: 1 month clean Adopted: No Caregiver/Support person: No Foster care: No Household members: none Housing: house Number of Children: 0 Communication Needs: None Education Level: high school Do you need help understanding health information?: Never 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 and animals: Yes (Ally) Pets and animals: dog(s) Sexually active: No Do you think of yourself as: straight/heterosexual Current gender identity: male What is your relationship status?: How often do you talk on the phone with friends or family?: twice per week How often do you get together with friends or relatives?: never Do you belong to any clubs or organized social groups?: no Panel score (0-1 are the most socially isolated patients): 0 What type of physical activity do you participate in: walking Duration: 15-30 minutes/day Frequency: 5-6 times per week Maryam/Restoration: Jainism Special maryam needs: No Seatbelt use: always Helmet use: Yes Helmet use: always Drive 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 commercial collections 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: No Do you feel safe at home: No (not with myself) Exam Const General: cooperative and acute distress Other: anxious HENMT Mouth: oral mucosae normal Eyes Pupils: PERRL Chest Chest: normal inspection of the chest Resp Effort & Inspection: normal respiratory effort Auscultation: clear to auscultation bilaterally Cardio Rate: regular rate Rhythm: regular rhythm Heart Sounds: no murmurs Other: no murmur GI Inspection: normal to inspection Skin General skin exam: no rashes or lesions noted Neuro General: patient alert and patient oriented x3 Extrem Other: no calf swelling or tenderness Psych Appearance: well kempt Course Vital Signs Vital signs: Vital Signs Temperature 37.2 C 12/01/21 21:02 Pulse 109 H 12/01/21 21:02 Respiratory Rate 20 12/01/21 21:02 Blood Pressure 122/78 12/01/21 21:02 Pulse Oximetry 100 12/01/21 21:02 Temperature 37.2 C 12/01/21 21:02 Temperature Source Skin 12/01/21 21:02 Pulse 74 12/01/21 22:04 Respiratory Rate 20 12/01/21 21:02 Respiratory Effort 12/01/21 21:10 Blood Pressure 122/78 12/01/21 21:02 Blood Pressure Position Sitting 12/01/21 21:02 Pulse Oximetry 97 12/01/21 22:04 Oxygen Delivery Method Room Air 12/01/21 21:02 Oxygen Flow Rate 0 12/01/21 21:02 Pain Level 8 12/01/21 21:02 Sign Out Sign Out Data: Sign Out Comment: voluntary MH status seeking placement Last updated by Luh Tsai PA at 12/01/21 23:04 Sign Out Comment: voluntary, anxiety, SI; awaiting re-eval this AM Last updated by Ajay Kennedy MD at 12/02/21 07:54
[2021-12-01 22:37] LABS: Source Nasal/Nares
[2021-12-01 22:41] LABS: *AMPHETAMINES SCREEN URINE Negative (Negative); *BARBITURATES SCREEN URINE Negative (Negative); *BENZODIAZEPINES SCREEN URINE Negative (Negative); Cannabinoids THC Negative (Negative); Cocaine Screen,Urine Positive (Negative); METHADONE URINE SCREEN Positive (Negative); OPIATES URINE SCREEN Negative (Negative)
[2021-12-01 22:43] LABS: Tricyclic Antidepressants Negative (Negative)
[2021-12-01 23:34] LABS: COVID-19 PCR Negative (Negative)
--- NOTE | 2021-12-02 08:58 | ED.PROG_ITS ---
Date of service: 12/02/21 Time of Service: 08:58 Medical Decision Making Care signed out by Dr. Kennedy, please see his documentation regarding initial ED presentation and course. Mr. Cortes was admitted yesterday for psychiatric illness, depression suicidal thoughts. He was discharged shortly after admission with home safety plan. He has failed home safety plan and returns feeling unsafe. He is here voluntarily requesting treatment. Patient has been here in the emergency department for 12 hours and has been cooperative with care plan. I called and spoke with the milk house worker recommended hospitalizing patient in transition beds. I will discuss case with the hospitalist. Sign Out Sign Out Data: Sign Out Comment: voluntary MH status seeking placement Last updated by Luh Tsai PA at 12/01/21 23:04 Sign Out Comment: voluntary, anxiety, SI; awaiting re-eval this AM Last updated by Ajay Kennedy MD at 12/02/21 07:54 Discharge Plan Disposition Patient Disposition: [facility] INPATIENT Condition: Serious Discharge Details Clinical Impression: Feeling suicidal, Anxiety, Depression Admit Date/Time: 12/02/21 09:22 Admit Provider: Barrington Gupta Attending Provider: Barrington Gupta Primary Care Provider: Brendon Vivar ED Provider: Lester Bundy Discharge Data Discharge Date/Time-TO BE ENTERED AT DEPARTURE: 12/02/21 10:07
[2021-12-02] MEDS: Methadone Liquid 10 MG/ML 110 MG PO (09:21)
[2021-12-02 09:44] VITALS: BP 128/80; PULSE 80; TEMP 36.7; O2SAT 96
[2021-12-02 09:58] VITALS: BP 119/78; PULSE 70; RESP 16; TEMP 36.8; O2SAT 97
--- NOTE | 2021-12-02 10:17 | HPE_ITS ---
Date of service: 12/02/21 Time of Service: 10:17 Assessment and Plan Assessment and plan (1) Suicidal ideation: Status: Acute Assessment and plan: here on a voluntary basis awaiting an inpatient psychiatric bed no behavioral issues will continue CPSO and routine suicidal precautions was medically cleared in the ED and remains medically stable. (2) Depression: Status: Chronic Assessment and plan: continue buspirone and trazodone (3) History of heroin abuse: Status: Acute Assessment and plan: continue home dosing (4) Discharge planning issues: Status: Deleted Assessment and plan: mental health and case management following awaiting an inpatient psychiatric bed, voluntary discussed with DR Gupta History of Present Illness History of Present Illness Chief Complaint: suicidal ideation Narrative: This is a 26 year old male who was evaluated yesterday in the ED for suicidal ideation. he was medically screen and cleared for mental health evaluation. initially plan was to voluntarily wait for inpatient psychiatric bed but on the second certification he denied suicidal ideation and was deemed safe for discharge home. his plan was to go to his sisters and continue outpatient psychiatric care. he returned to the ED today for ongoing suicidal ideation and is seeking inpatient treatment. He is again medically cleared in the ED and will stay here until an inpatient bed is available Review of Systems All systems reviewed & are unremarkable except as noted in HPI and below Psychiatric Psychiatric: Reports depression and Reports suicidal ideation PFSH All Active Problems (Updated 12/02/21 @ 09:01 by Lester Bundy MD) Feeling suicidal (Acute) Anxiety (Chronic) Depression (Chronic) History of heroin abuse (Acute) Chest pain (Acute) Indigestion (Acute) Anxiety (Chronic) MEN 1 syndrome (Acute) Depression (Chronic) Suicidal ideation (Acute) Pneumonia (Acute) Left-sided chest pain (Acute) Chest wall pain (Acute) Viral URI with cough (Acute) Laryngitis (Acute) Elevated parathyroid hormone (Acute) Hyperlipidemia (Acute) Family history of coronary arteriosclerosis (Chronic) Father of [place] at 50, mother had [place] at 42 Family history of multiple endocrine neoplasia, type 1 (Acute) Severe anxiety with panic (Acute) Hypercalcemia (Acute) PTSD (post-traumatic stress disorder) (Acute) Cellulitis (Acute) Medical History Anxiety in acute stress reaction Cocaine use History of heroin abuse Surgical History No significant past surgical history Family History Mother Anxiety Asthma Depression Sister Anxiety Depression Father Cancer lung & stomach Depression Diabetes Hypertension MEN 1 (multiple endocrine neoplasia) Social History Smoking/Tobacco Use Status: Never Smoking risk assessment performed?: Yes Alcohol Intake: never Drug use: Current 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: 1 month clean Adopted: No Caregiver/Support person: No Foster care: No Household members: none Housing: house Number of Children: 0 Communication Needs: None Education Level: high school Do you need help understanding health information?: Never 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 and animals: Yes (Ally) Pets and animals: dog(s) Sexually active: No Do you think of yourself as: straight/heterosexual Current gender identity: male What is your relationship status?: How often do you talk on the phone with friends or family?: twice per week How often do you get together with friends or relatives?: never Do you belong to any clubs or organized social groups?: no Panel score (0-1 are the most socially isolated patients): 0 What type of physical activity do you participate in: walking Duration: 15-30 minutes/day Frequency: 5-6 times per week Maryam/Methodist: Uatsdin Special maryam needs: No Seatbelt use: always Helmet use: Yes Helmet use: always Drive 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 local [place] truck driver: No Do you feel safe at home: No (not with myself) Meds Allergies and Home Medications Allergies Allergy/AdvReac Type Severity Reaction Status Date / Time codeine Allergy Intermediate Verified 12/01/21 21:12 Home Medications Medication Instructions Recorded Confirmed Type lorazepam 1 mg tablet 1 mg PO BID PRN anxiety #14 tabs 10/25/21 12/01/21 Rx trazodone 50 mg tablet 50 mg PO QHS PRN sleep #30 tabs 10/25/21 12/01/21 Rx methadone 10 mg/5 mL oral solution 110 mg PO QAM 11/16/21 12/01/21 History buspirone 10 mg tablet 10 mg PO QHS 12/01/21 12/01/21 History Exam Const General: cooperative and acute distress HENMT Mouth: oral mucosae normal Eyes Pupils: PERRL Chest Chest: normal inspection of the chest Resp Effort & Inspection: normal respiratory effort Auscultation: clear to auscultation bilaterally Cardio Rate: regular rate Rhythm: regular rhythm Heart Sounds: no murmurs Other: no murmur GI Inspection: normal to inspection Skin General skin exam: no rashes or lesions noted Neuro General: patient alert and patient oriented x3 Extrem Other: no calf swelling or tenderness Results Labs Labs: Laboratory Results - last 24 hr 12/01/21 12/01/21 22:15 22:28 Urine Opiates Screen Negative Urine Methadone Screen Positive A Ur Barbiturates Screen Negative Ur Tricyclics Screen Negative Ur Amphetamines Screen Negative U Benzodiazepines Scrn Negative Urine Cocaine Screen Positive A Ur THC Screen Negative COVID-19 Source Nasal/Nares SARS-CoV-2 (PCR) Negative Last Vital Signs Temp 36.7 C 12/02/21 09:44 Pulse 80 12/02/21 09:44 Resp 20 12/01/21 21:02 BP 128/80 12/02/21 09:44 Pulse Ox 96 12/02/21 09:44
[2021-12-02] MEDS: Methylnaltrexone 12 MG/0.6 ML VIAL SC (13:57)
--- NOTE | 2021-12-02 14:01 | PDOC.CMSAFE ---
- If Service Date Differs Date of service: 12/02/21 Time of Service: 14:01 Care Management Safety Plan Status: Voluntary - Reason for Wait Reason for Wait: Inpatient Admission Pedro Pablo was discharged yesterday afternoon with a safety plan that he created with [facility]. He arrived in the ED later in the evening, stating that he cannot manage at home and feels that he would benefit from inpatient psychiatric treatment. He has been cooperative in all interactions with staff. He has asked to take a shower, which has been updated on this safety plan. His sister, Maura ([phone]), has called and asked to talk with him. Pedro Pablo identified her as a support, therefore she will be added as contact for incoming/outgoing calls using the [facility] phone. Maura stated that she is caring for his dog while he is away. He also has a side table and remote in the room, and has demonstrated safe use of these items. Per [facility], [place], , , [facility] and [facility]. CM will continue to follow. VOLUNTARY FOR INPATIENT PSYCHIATRIC STABILIZATION. Patient is appropriate in all interactions since arriving at [facility]; Pt has demonstrated appropriate coping and communication skills, has articulated his or her needs and concerns and is fully engaged during staff interactions. Safety plan has been established with patient, and care team, to adhere to patient goals, identify restrictions based on behavioral status, address nutrition, and determine allowed personal belongings, tools for hygiene and personal care. Determine level of activity including ambulation, level of supervision, visitors, and determine privileges based on behaviors and level of engagement by pt. SAFETY PLAN: 1. Will remain on suicide precautions. In Paper Clothes 2. Will remain in room under direct supervision of one-on-one staff at all times provided by CPSO; SHITAL, CORE RESCUER athletic monitor. 3. May have paper cups, plates, finger foods as well as a cardboard spoon with which to eat meals. 4. Follow [facility] Management of the Admitted Behavioral Health Patient policy. 5. Comfort bath system or shower permitted with escort at RN discretion. 6. No personal belongings-soft items permitted at RN discretion. 7. Visitors-none at this time. 8. Activities: soft cart items approved per RN discretion. 9. Bathroom privileges with escort in the ED, available in room without limitation on M/S. 10. Phone: contact limited to family at this time, via cordless phone at RN discretion. Sister, Maura ([phone]) is supportive. 11. Due to VOLUNTARY status, if patient wishes to leave [facility], staff will contact [facility] Crisis Screener ([phone]) and On-Call Conference Center Manager ([phone]) as soon as possible. In the event of elopement, notify [facility] Police ([phone]). Patient is currently voluntarily at [facility] and seeking inpatient admission when a bed becomes available. [facility] Frontline Steel Erecting Pusher will continue seeking placement. Please contact the Requirements Engineer Conference Center Manager ([phone]) and [facility] Steel Erecting Pusher ([phone]) for any needed changes in the Safety Plan. Safety plan has been provided to interdepartmental care team.
[2021-12-02] MEDS: Ondansetron O.D.T. 4 MG TABEF PO (15:28)
[2021-12-02] MEDS: Calcium Carbonate *TUMS* 500 MG CHEW PO (16:07)
[2021-12-02] MEDS: Simethicone 80 MG CHEW 160 MG PO (16:07)
[2021-12-02 20:34] VITALS: BP 118/73; PULSE 76; RESP 18; TEMP 36.6; O2SAT 99
[2021-12-02] MEDS: Docusate Sodium 100 MG CAP PO (21:55)
[2021-12-02] MEDS: busPIRone 5 MG TAB 10 MG PO (21:55)
[2021-12-03] MEDS: Methadone Liquid 10 MG/ML 110 MG PO (08:13)
[2021-12-03] MEDS: Docusate Sodium 100 MG CAP PO (08:13)
[2021-12-03 08:22] VITALS: BP 121/75; PULSE 60; RESP 17; TEMP 36.8; O2SAT 96
--- NOTE | 2021-12-03 12:33 | W.PM.DS.N ---
Date of service: 12/03/21 Time of Service: 12:33 DS: Diagnosis Discharge Diagnosis (1) Suicidal ideation: Status: Acute (2) Depression: Status: Chronic (3) History of heroin abuse: Status: Acute Discharge Plan Disposition Patient Disposition: [facility] Condition: Serious Discharge Details Reason For Visit: DEPRESSION, SUICIDAL IDEATION Admit Date/Time: 12/02/21 09:22 Admit Provider: Barrington Gupta Attending Provider: Barrington Gupta Primary Care Provider: Brendon Vivar [facility] Course Hospital Course: Pedro Pablo is a 26 year old male patient, with pmhx of depression, anxietey and addiction to cocain and heroin; he came to the emergency department complaining of feeling suicidal. A plan was developed and he went home with his sister. The next day he was feeling worse and returned to the emergency department where he agreed to voluntary admission awaiting placement at a psychiatric facility. He has been seen in the emergency department multiple times in the past 2 months. He is willing to go to [facility] and is accepted by Dr Guru Araujo. Home Meds and New Rx's Prescriptions: No Action methadone 10 mg/5 mL solution 110 mg PO QAM trazodone 50 mg tablet 50 mg PO QHS PRN (Reason: sleep) Qty: 30 0RF lorazepam 1 mg tablet 1 mg PO BID PRN (Reason: anxiety) Qty: 14 0RF buspirone 10 mg tablet 10 mg PO QHS Discharge Instructions Instructions: Depression (DC), Suicide Prevention (DC) Stand Alone Forms: Nursing Discharge Form Referrals: Brendon Vivar DO [Primary Care Provider] - (Please make a follow up appointment when dicharged from [place] ) Activity:: Activity as Tolerated Diet:: As Tolerated DS: Summary Time Spent with Patient providing and/or coordinating discharge services: Less than 30 minutes Status at Discharge Functional status at discharge: independent ambulation Overall status at discharge: patient is progressing back to baseline Mental Status: mental status grossly normal Speech and Movement: speech and movement normal Mood: congruent mood Affect: normal affect Exam Const General: cooperative and acute distress HENMT Mouth: oral mucosae normal Eyes Pupils: PERRL Chest Chest: normal inspection of the chest Resp Effort & Inspection: normal respiratory effort Auscultation: clear to auscultation bilaterally Cardio Rate: regular rate Rhythm: regular rhythm Heart Sounds: no murmurs Other: no murmur GI Inspection: normal to inspection Skin General skin exam: no rashes or lesions noted Neuro General: patient alert and patient oriented x3 Extrem Other: no calf swelling or tenderness Psych Mental Status: mental status grossly normal Speech and Movement: speech and movement normal Mood: congruent mood Affect: normal affect DS: Data Vitals/I&O Vitals and I&O: Vital Signs Temperature 36.8 C 12/03/21 08:22 Temperature Source Tympanic 12/03/21 08:22 Pulse 60 12/03/21 08:22 Pulse Rhythm Regular 12/03/21 09:21 Respiratory Rate 17 12/03/21 08:22 Respiratory Effort Non-Labored 12/03/21 09:21 Respiratory Depth Normal 12/03/21 09:21 Respiratory Pattern Normal 12/03/21 09:21 Blood Pressure 121/75 12/03/21 08:22 Blood Pressure Position Sitting 12/01/21 21:02 Pulse Oximetry 96 12/03/21 08:22 Oxygen Delivery Method Room Air 12/03/21 08:22 Oxygen Flow Rate 0 12/03/21 08:22 Pain Level 0 12/02/21 20:34 Intake & Output 12/02/21 12/03/21 12/03/21 23:59 11:59 23:59 Intake Total 118 / 118 480 / 480 Balance 118 / 118 480 / 480 Intake: Oral 118 / 118 480 / 480 Other: Urine Appearance Clear Clear Stool Size Large Voiding Methods Toilet Toilet PFSH All Active Problems Feeling suicidal (Acute) Anxiety (Chronic) Depression (Chronic) History of heroin abuse (Acute) Chest pain (Acute) Indigestion (Acute) Anxiety (Chronic) MEN 1 syndrome (Acute) Depression (Chronic) Suicidal ideation (Acute) Pneumonia (Acute) Left-sided chest pain (Acute) Chest wall pain (Acute) Viral URI with cough (Acute) Laryngitis (Acute) Elevated parathyroid hormone (Acute) Hyperlipidemia (Acute) Family history of coronary arteriosclerosis (Chronic) Father of [place] at 50, mother had [place] at 42 Family history of multiple endocrine neoplasia, type 1 (Acute) Severe anxiety with panic (Acute) Hypercalcemia (Acute) PTSD (post-traumatic stress disorder) (Acute) Cellulitis (Acute) Medical History Anxiety in acute stress reaction Cocaine use Surgical History No significant past surgical history Family History Mother Anxiety Asthma Depression Sister Anxiety Depression Father Cancer lung & stomach Depression Diabetes Hypertension MEN 1 (multiple endocrine neoplasia) Social History Smoking/Tobacco Use Status: Never Smoking risk assessment performed?: Yes Alcohol Intake: never Drug use: Current 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: 1 month clean Adopted: No Caregiver/Support person: No Foster care: No Household members: none Housing: house Number of Children: 0 Communication Needs: None Education Level: high school Do you need help understanding health information?: Never 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 and animals: Yes (Ally) Pets and animals: dog(s) Sexually active: No Do you think of yourself as: straight/heterosexual Current gender identity: male What is your relationship status?: How often do you talk on the phone with friends or family?: twice per week How often do you get together with friends or relatives?: never Do you belong to any clubs or organized social groups?: no Panel score (0-1 are the most socially isolated patients): 0 What type of physical activity do you participate in: walking Duration: 15-30 minutes/day Frequency: 5-6 times per week Maryam/Latter Day: Hinduism Special maryam needs: No Seatbelt use: always Helmet use: Yes Helmet use: always Drive 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 mechanic welder truck driver: No Do you feel safe at home: No (not with myself)
--- NOTE | 2021-12-03 17:23 | PDOC.CMDIS ---
- If Service Date Differs Date of service: 12/03/21 Time of Service: 17:23 LACE Index Scoring Tool - Questions: Length of Stay (in days): 1 Acuity (Admit via E.D.?): Yes E.D. Visits: 22 - Answers: Total Score: 8 Risk of Readmission: Low Risk Care Management Discharge Reason for Hospitalization: depression, SI Discharge Plan: Pedro Pablo was transferred to [facility] for inpatient psychiatric care. He was transported via [place], as there was no available Product Management Specialist to provide secure transport. He will follow up with [facility], his PCP, and his discharge plan of care. He was agreeable to this plan. Patient/Family Education Needs: Review discharge instructions and limitations, discussion of self care needs including ask me three. Services Needed at Discharge: Psychiatric Facility ([place]), [facility] - Disposition Disposition: [place]
== END 2021-12-03 14:57 | disposition short-term general hospital (02) | DRG 881 ==
LOC: ER 12-02 09:01 → MS 12-02 10:21
PROVIDERS: Physician Assistant; Admitting Provider Internal Medicine; Emergency Provider Student in an Organized Health Care Education/Training Program; PCP Family Medicine; Visit Provider Internal Medicine
DX: F32.A Depression, unspecified (principal); R45.851 Suicidal ideations; E31.21 Multiple endocrine neoplasia [MEN] type I; F41.0 Panic disorder [episodic paroxysmal anxiety]; G89.29 Other chronic pain; R07.9 Chest pain, unspecified; F11.10 Opioid abuse, uncomplicated; E78.5 Hyperlipidemia, unspecified; Z82.49 Family history of ischemic heart disease and other diseases of the circulatory system; F43.10 Post-traumatic stress disorder, unspecified
CPT/HCPCS: 80307; 87635; 93005; 99285; 93010; 99223; 99239

== ENCOUNTER 2021-12-15 11:11 | Emergency (ER) | payer MEDICAID, SELFPAY ==
--- NOTE | 2021-12-15 11:15 | RT.EKG_ITS ---
APPROVED REPORT Exam: Resting ECG Reason for Exam: chest pain Patient Location: E HR:90 bpm ECG Measurements Heart Rate 90 AXIS OH 189 P 63 QRSd 95 QRS 41 QT 356 T 15 QTc 436 Conclusion Sinus rhythm...normal P axis, V-rate 60- [address] elevation, anterior leads.Similar to previous
[2021-12-15 11:18] VITALS: BP 119/68; PULSE 85; RESP 18; TEMP 37.2; O2SAT 96
--- NOTE | 2021-12-15 11:27 | ED.GENADUL_ITS ---
Discharge Plan Disposition Patient Disposition: HOME Condition: Improving Discharge Details Clinical Impression: Anxiety Primary Care Provider: Brendon Vivar ED Provider: Mp Quiles Home Meds and New Rx's Prescriptions: Continued methadone 10 mg/5 mL solution 110 mg PO QAM trazodone 50 mg tablet 50 mg PO QHS PRN (Reason: sleep) Qty: 30 0RF lorazepam 1 mg tablet 1 mg PO BID PRN (Reason: anxiety) Qty: 14 0RF buspirone 10 mg tablet 10 mg PO QHS Discharge Instructions Instructions: Anxiety (ED) Additional Instructions: Home to rest today. Continue small sips of fluids for good hydration. Continue routine medications Medical Decision Making 18-year-old male who was anxious at home developed transient chest pressure for which he took a lorazepam. He is now improved. Feels better. Does feel the need to belch but says this is not uncommon. Patient underwent screening EKG which is unremarkable and similar to previous. Discussed with him that I do not feel he requires further work-up. He is stable and appropriate for discharge at this time. HPI General Mode of arrival: ambulatory . Date/Time Provider Initiated Documentation: 12/15/21 11:11 . Limitations to Documentation: no limitations . Information obtained by: patient . History of Present Illness 26 year old M presents to the emergency department with the chief complaint of Anxiety with chest pressure at home, and is localized to the chest. Patient reports no radiation. Patient started experiencing this minute(s) and it has been now resolved. No relieving factors improve symptom(s), No exacerbating factors reported . Patient notes denies cough, nausea/vomiting and shortness of breath. Patient did receive the following treatments prior to arrival, none Related Data Home Medications Medication Instructions Recorded Confirmed lorazepam 1 mg tablet 1 mg PO BID PRN anxiety #14 tabs 10/25/21 12/15/21 trazodone 50 mg tablet 50 mg PO QHS PRN sleep #30 tabs 10/25/21 12/15/21 methadone 10 mg/5 mL oral solution 110 mg PO QAM 11/16/21 12/15/21 buspirone 10 mg tablet 10 mg PO QHS 12/01/21 12/15/21 Previous Rx's Medication Instructions Recorded lorazepam 1 mg tablet 1 mg PO BID PRN anxiety #14 tabs 10/25/21 trazodone 50 mg tablet 50 mg PO QHS PRN sleep #30 tabs 10/25/21 Allergies Allergy/AdvReac Type Severity Reaction Status Date / Time codeine Allergy Intermediate Verified 12/15/21 11:22 General Stated Complaint: Chest Pain ADRIANA: 3 Review of Systems Narrative: 6 systems reviewed and otherwise PFSH All Active Problems (Updated 12/15/21 @ 11:30 by Mp Quiles MD) Anxiety (Chronic) Anxiety (Chronic) Depression (Chronic) Chest pain (Acute) Indigestion (Acute) Anxiety (Chronic) MEN 1 syndrome (Acute) Depression (Chronic) Suicidal ideation (Acute) Elevated parathyroid hormone (Acute) Hyperlipidemia (Acute) Family history of coronary arteriosclerosis (Chronic) Father of [place] at 50, mother had [place] at 42 Family history of multiple endocrine neoplasia, type 1 (Acute) Severe anxiety with panic (Acute) Hypercalcemia (Acute) PTSD (post-traumatic stress disorder) (Acute) Cellulitis (Acute) Medical History Anxiety in acute stress reaction Cocaine use History of heroin abuse Surgical History No significant past surgical history Family History Mother Anxiety Asthma Depression Sister Anxiety Depression Father Cancer lung & stomach Depression Diabetes Hypertension MEN 1 (multiple endocrine neoplasia) Social History Smoking/Tobacco Use Status: Never Smoking risk assessment performed?: Yes Alcohol Intake: never Drug use: Current 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: 1 month clean Adopted: No Caregiver/Support person: No Foster care: No Household members: none Housing: house Number of Children: 0 Communication Needs: None Education Level: high school Do you need help understanding health information?: Never 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 and animals: Yes (Ally) Pets and animals: dog(s) Sexually active: No Do you think of yourself as: straight/heterosexual Current gender identity: male What is your relationship status?: How often do you talk on the phone with friends or family?: twice per week How often do you get together with friends or relatives?: never Do you belong to any clubs or organized social groups?: no Panel score (0-1 are the most socially isolated patients): 0 What type of physical activity do you participate in: walking Duration: 15-30 minutes/day Frequency: 5-6 times per week Maryam/Jew: Episcopalian Special maryam needs: No Seatbelt use: always Helmet use: Yes Helmet use: always Drive 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 motorcoach driver: No Do you feel safe at home: No (not with myself) Exam Narrative Exam Narrative: GEN: awake, alert, oriented 3. Pleasant, well groomed, interactive. HEAD: Normocephalic, atraumatic ENT: Mucous membranes moist, oropharynx unremarkable, External ear exam unremarkable EYES: PERRL, EOMI NECK: Full ROM, no DENY, no menigismus CHEST/RESP: Nontender, clear to auscultation bilateral, no wheeze/rhonchi/rales CARDIOVASCULAR: RRR, no murmur, rub joshua. 2+ Rad pulse bilateral ABDOMEN: Soft, nontender, no mass. +Bowel sounds EXT: Full ROM, no edema, no rash Neuro: Grossly normal neurologic exam, conversant, interactive. Psych: Speech fluent, thoughts congruent, affect normal Course Vital Signs Vital signs: Vital Signs Temperature 37.2 C 12/15/21 11:18 Pulse 85 12/15/21 11:18 Respiratory Rate 18 12/15/21 11:18 Blood Pressure 119/68 12/15/21 11:18 Pulse Oximetry 96 12/15/21 11:18 Temperature 37.2 C 12/15/21 11:18 Temperature Source Temporal Artery Scan 12/15/21 11:18 Pulse 85 12/15/21 11:18 Respiratory Rate 18 12/15/21 11:18 Blood Pressure 119/68 12/15/21 11:18 Blood Pressure Position Sitting 12/15/21 11:18 Pulse Oximetry 96 12/15/21 11:18 Oxygen Delivery Method Room Air 12/15/21 11:18 Oxygen Flow Rate 0 12/15/21 11:18
[2021-12-15 11:37] VITALS: RESP 18
== END 2021-12-15 11:37 | disposition home or self-care (01) ==
PROVIDERS: Emergency Provider Emergency Medicine; PCP Family Medicine
DX: F41.9 Anxiety disorder, unspecified (principal); R07.89 Other chest pain
CPT/HCPCS: 93005; 99283; 93010; 99282

== ENCOUNTER 2021-12-20 14:13 | Observation (INO) | payer OTHER, SELFPAY ==
[2021-12-20 14:41] VITALS: BP 129/69; PULSE 87; TEMP 36.7; O2SAT 95
--- NOTE | 2021-12-20 14:49 | W.ED.GENAD ---
Discharge Plan Disposition Patient Disposition: [facility] INPATIENT Condition: Serious Discharge Details Chief Complaint: PsychEval Clinical Impression: Depression, Suicidal ideation Primary Care Provider: Brendon Vivar ED Provider: Barrington Arciniega Home Meds and New Rx's Prescriptions: No Action methadone 10 mg/5 mL solution 110 mg PO QAM trazodone 50 mg tablet 50 mg PO QHS PRN (Reason: sleep) Qty: 30 0RF lorazepam 1 mg tablet 1 mg PO BID PRN (Reason: anxiety) Qty: 14 0RF buspirone 10 mg tablet 10 mg PO QHS sennosides [senna] 8.6 mg tablet PO DAILY Label Comments: TAKE TWO TABLETS BY MOUTH AT BEDTIME famotidine 20 mg tablet 20 mg PO DAILY Label Comments: TAKE ONE TABLET BY MOUTH EVERY DAY gabapentin 300 mg capsule 300 mg PO PRN PRN Label Comments: TAKE ONE CAPSULE BY MOUTH EVERY 6 HOURS NEEDED NOT TO EXCEED 2 IN 24 HOURS fluoxetine 20 mg capsule 20 mg PO DAILY Label Comments: TAKE ONE CAPSULE BY MOUTH EVERY DAY Medical Decision Making 26-year-old male presents to the ER with depression and SI, plan to overdose with pills, requesting voluntary placement. Will initiate a care plan, mental health evaluation, and a CPSO. Will obtain routine screening laboratory values for placement as well as a COVID swab. Mental health eval completed, patient to be a voluntary mental health placement, unlikely to happen this evening. Laboratory values that have resulted thus far do not reveal any obvious emergent process that would inhibit placement. Plan is to discuss the case with our hospitalist team for admission until placement is found. He does not have morning Case discussed with Anna Ocampo NURSE PRACTITIONER PHYSICIAN ASSISTANT who is agreeable to admit to the hospitalist team and will place admission orders This documentation was generated using More Designation system, please disregard any oddities of phrase or misspellings. Medical Records Medical records reviewed: Yes I reviewed the patient's medical records. Lab Data Lab results reviewed: Yes I reviewed the patient's lab results. Labs: Laboratory Tests Range/Units 12/20/21 12/20/21 15:05 15:05 WBC (4.4-10.8) 10^3/uL 7.77 RBC (4.36-5.78) 10^6/uL 4.67 Hgb (13.5-17.5) g/dL 14.1 Hct (40.0-50.0) % 41.6 MCV (80-95) fL 89 MCH (27.0-33.0) pg 30.2 MCHC (32.0-36.0) % 33.9 RDW (11.8-14.1) % 11.9 Plt Count (130-400) 10^3/uL 230 MPV (8.0-11.0) fL 11.5 H Immature Gran % 0.3 Neutrophils % 80.0 Lymphocytes % 11.1 Monocytes % 7.6 Eosinophils % 0.5 Basophils % 0.5 Nucleated RBC % (0.0-0.3) % 0.0 Absolute Neutrophils (1.2-6.7) 10^3/uL 6.22 Absolute Lymphocytes (1.2-3.4) 10^3/uL 0.86 L Absolute Monocytes (0.1-0.8) 10^3/uL 0.59 Absolute Eosinophils (0.0-0.7) 10^3/uL 0.04 Absolute Basophils (0.0-0.2) 10^3/uL 0.04 COVID-19 Source Nasal/Nares HPI General Mode of arrival: EMS. Date/Time Provider Initiated Documentation: 12/20/21 14:47. Limitations to Documentation: no limitations. Information obtained by: patient and EMS. HPI Narrative: This is a 26-year-old gentleman with a past sickle history of anxiety, depression, SI, PTSD, reports being discharged from the [facility] on Friday and subsequently developing increasing depression and SI with a plan to overdose on Friday and symptoms have been present and worsening since that time. Patient feels as though he was not ready to be discharged from the [facility]. Patient denies any alcohol, drugs, or smoking. He denies any medical concerns or complaints at this time. He did not take any medications today or perform any actions to harm himself. Patient believes that he needs to be hospitalized for his ongoing depression and SI. Related Data Home Medications Medication Instructions Recorded Confirmed lorazepam 1 mg tablet 1 mg PO BID PRN anxiety #14 tabs 10/25/21 12/20/21 trazodone 50 mg tablet 50 mg PO QHS PRN sleep #30 tabs 10/25/21 12/20/21 methadone 10 mg/5 mL oral solution 110 mg PO QAM 11/16/21 12/20/21 buspirone 10 mg tablet 10 mg PO QHS 12/01/21 12/20/21 famotidine 20 mg tablet 20 mg PO DAILY 12/20/21 12/20/21 fluoxetine 20 mg capsule 20 mg PO DAILY 12/20/21 12/20/21 gabapentin 300 mg capsule 300 mg PO PRN PRN 12/20/21 12/20/21 sennosides 8.6 mg tablet (senna) tab PO DAILY 12/20/21 Previous Rx's Medication Instructions Recorded lorazepam 1 mg tablet 1 mg PO BID PRN anxiety #14 tabs 10/25/21 trazodone 50 mg tablet 50 mg PO QHS PRN sleep #30 tabs 10/25/21 Allergies Allergy/AdvReac Type Severity Reaction Status Date / Time codeine Allergy Intermediate Verified 12/20/21 14:21 General Stated Complaint: PsychEval ADRIANA: 2 Review of Systems Constitutional Constitutional: Denies fatigue, Denies fever(s), Denies headache(s) and Denies weakness ENT Ears, Nose, Mouth, and Throat: Denies headache(s) and Denies neck pain Cardiovascular Cardiovascular: Denies chest pain and Denies dyspnea Respiratory Respiratory: Denies cough and Denies dyspnea Gastrointestinal Gastrointestinal: Denies abdominal pain, Denies nausea and Denies vomiting Musculoskeletal Musculoskeletal: Denies back pain and Denies neck pain Integumentary/Breasts Skin/Breast: Denies rash Neurologic Neurologic: Denies headache(s) and Denies weakness Psychiatric Psychiatric: Reports anxiety, Reports depression, Denies homicidal ideation and Reports suicidal ideation Endocrine Endocrine: Denies fatigue PFSH All Active Problems (Updated 12/20/21 @ 15:53 by ANDREW Chow) Anxiety (Chronic) Anxiety (Chronic) Depression (Chronic) Chest pain (Acute) Indigestion (Acute) Anxiety (Chronic) MEN 1 syndrome (Acute) Depression (Chronic) Suicidal ideation (Acute) Elevated parathyroid hormone (Acute) Hyperlipidemia (Acute) Family history of coronary arteriosclerosis (Chronic) Father of [place] at 50, mother had [place] at 42 Family history of multiple endocrine neoplasia, type 1 (Acute) Severe anxiety with panic (Acute) Hypercalcemia (Acute) PTSD (post-traumatic stress disorder) (Acute) Cellulitis (Acute) Medical History Anxiety in acute stress reaction Cocaine use History of heroin abuse Surgical History No significant past surgical history Family History Mother Anxiety Asthma Depression Sister Anxiety Depression Father Cancer lung & stomach Depression Diabetes Hypertension MEN 1 (multiple endocrine neoplasia) Social History Smoking/Tobacco Use Status: Never Smoking risk assessment performed?: Yes Alcohol Intake: never Drug use: Current 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: 1 month clean Adopted: No Caregiver/Support person: No Foster care: No Household members: none Housing: house Number of Children: 0 Communication Needs: None Education Level: high school Do you need help understanding health information?: Never 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 and animals: Yes (Ally) Pets and animals: dog(s) Sexually active: No Do you think of yourself as: straight/heterosexual Current gender identity: male What is your relationship status?: How often do you talk on the phone with friends or family?: twice per week How often do you get together with friends or relatives?: never Do you belong to any clubs or organized social groups?: no Panel score (0-1 are the most socially isolated patients): 0 What type of physical activity do you participate in: walking Duration: 15-30 minutes/day Frequency: 5-6 times per week Maryam/Episcopalian: Temple Special maryam needs: No Seatbelt use: always Helmet use: Yes Helmet use: always Drive 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 driver operator: No Do you feel safe at home: No (not with myself) Exam Const General: cooperative, healthy appearing, comfortable and no acute distress Orientation: alert, awake and oriented x3 HENMT Head: normal to inspection, normocephalic and atraumatic Face and sinus: normal facial exam Mouth: moist mucous membranes Eyes General: appearance normal, both eyes and all related structures Conjunctivae: conjunctivae normal Neck Neck: normal visual inspection, full ROM, trachea midline and supple Resp Effort & Inspection: normal respiratory effort and able to speak in complete sentences Auscultation: clear to auscultation bilaterally Cardio Rate: regular rate Rhythm: regular rhythm GI Palpation: soft and nontender Back/Spine/Pelvis Back: No back tenderness Skin General skin exam: no rashes or lesions noted Neuro General: patient alert, patient awake, patient oriented x3, moves all extremities and no focal motor deficits Cognition: normal cognition Speech: speech normal Gait: normal gait Motor: muscle tone normal throughout Sensory Exam: no sensory deficits noted Extrem General: normal to inspection, full ROM and capillary refill normal Psych Appearance: grossly normal Mental Status: mental status grossly normal Speech and Movement: speech and movement normal Mood: dysthymic mood Affect: sad Attitude: cooperative Thought Process: normal Thought Content: suicidality Insight: fair Judgment: fair Course Vital Signs Vital signs: Vital Signs Temperature 36.7 C 12/20/21 14:41 Pulse 87 12/20/21 14:41 Blood Pressure 129/69 12/20/21 14:41 Pulse Oximetry 95 12/20/21 14:41 Temperature 36.7 C 12/20/21 14:41 Temperature Source Oral 12/20/21 14:41 Pulse 87 12/20/21 14:41 Respiratory Effort Non-Labored 12/20/21 14:24 Blood Pressure 129/69 12/20/21 14:41 Pulse Oximetry 95 12/20/21 14:41 Oxygen Delivery Method Room Air 12/20/21 14:41 Oxygen Flow Rate 0 12/20/21 14:41
[2021-12-20 15:12] LABS: Source Nasal/Nares
[2021-12-20 15:13] LABS: Abs Immature Grans 0.02 10^3/uL (0.0-0.06); Absolute Basophil Count 0.04 10^3/uL (0.0-0.2); Absolute Eosinophil Count 0.04 10^3/uL (0.0-0.7); Absolute Lymphocyte Count 0.86 10^3/uL (1.2-3.4); Absolute Monocyte Count 0.59 10^3/uL (0.1-0.8); Absolute Neutrophil Count 6.22 10^3/uL (1.2-6.7); Basophils % 0.5; Eosinophils % 0.5; HCT 41.6 % (40.0-50.0); HGB 14.1 g/dL (13.5-17.5); Immature Grans % 0.3; Lymphocytes % 11.1; MCH 30.2 pg (27.0-33.0); MCHC 33.9 % (32.0-36.0); MCV 89 fL (80-95); MPV 11.5 fL (8.0-11.0); Monocytes % 7.6; Platelet Count 230 10^3/uL (130-400); RBC 4.67 10^6/uL (4.36-5.78); RDW 11.9 % (11.8-14.1); RDW-SD 38.5 fL; WBC 7.77 10^3/uL (4.4-10.8)
[2021-12-20 15:43] LABS: ALT 23 U/L (16-63); AST 12 U/L (15-37); Albumin 3.8 g/dL (3.4-5.0); Alkaline Phosphatase 121 U/L (46-116); BUN 10 mg/dL (7-18); Bilirubin, Total 0.9 mg/dL (0.2-1.0); CREATININE 1.1 mg/dL (0.70-1.30); Calcium 11.2 mg/dL (8.5-10.1); Chloride 103 mmol/L (98-107); Glucose 111 mg/dL (74-106); Potassium 3.9 mmol/L (3.5-5.1); Sodium 137 mmol/L (136-145); TSH (W/Ref FT4) 0.15 uIU/mL (0.36-3.74); Total Protein 7.4 g/dL (6.4-8.2)
--- NOTE | 2021-12-20 15:56 | HPE_ITS ---
Date of service: 12/20/21 Time of Service: 15:56 Assessment and Plan Assessment and plan (1) Suicidal ideation: Status: Acute Assessment and plan: here on a voluntary basis awaiting an inpatient psychiatric bed no behavioral issues will continue CPSO and routine suicidal precautions was medically cleared in the ED and remains medically stable. (2) Depression: Status: Chronic Assessment and plan: continue buspirone and trazodone (3) History of heroin abuse: Status: Acute Assessment and plan: continue home dosing of methadone (4) Discharge planning issues: Status: Acute Assessment and plan: mental health and case management following awaiting an inpatient psychiatric bed, voluntary discussed with DR Gupta History of Present Illness History of Present Illness Chief Complaint: suicidal ideation Narrative: This is an 26 year old male with history of major depression and suicidal ideation recently discharged from [facility] who presents to the ED with recurrent worsening symptoms. He is medically cleared in the ED and underwent a mental health evaluation and plan is for voluntary inpatient psychiatric admission. no beds available so will remain here until a bed opens up. Review of Systems All systems reviewed & are unremarkable except as noted in HPI and below Psychiatric Psychiatric: Reports depression, Denies homicidal ideation and Reports suicidal ideation PFSH All Active Problems (Updated 12/20/21 @ 18:00 by Anna Ocampo NP) Discharge planning issues (Acute) History of heroin abuse (Acute) Anxiety (Chronic) Anxiety (Chronic) Depression (Chronic) Chest pain (Acute) Indigestion (Acute) Anxiety (Chronic) MEN 1 syndrome (Acute) Depression (Chronic) Suicidal ideation (Acute) Elevated parathyroid hormone (Acute) Hyperlipidemia (Acute) Family history of coronary arteriosclerosis (Chronic) Father of [place] at 50, mother had [place] at 42 Family history of multiple endocrine neoplasia, type 1 (Acute) Severe anxiety with panic (Acute) Hypercalcemia (Acute) PTSD (post-traumatic stress disorder) (Acute) Cellulitis (Acute) Medical History Anxiety in acute stress reaction Cocaine use History of heroin abuse Surgical History No significant past surgical history Family History Mother Anxiety Asthma Depression Sister Anxiety Depression Father Cancer lung & stomach Depression Diabetes Hypertension MEN 1 (multiple endocrine neoplasia) Social History Smoking/Tobacco Use Status: Never Smoking risk assessment performed?: Yes Alcohol Intake: never Drug use: Current 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: 1 month clean Adopted: No Caregiver/Support person: No Foster care: No Household members: none Housing: house Number of Children: 0 Communication Needs: None Education Level: high school Do you need help understanding health information?: Never 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 and animals: Yes (Ally) Pets and animals: dog(s) Sexually active: No Do you think of yourself as: straight/heterosexual Current gender identity: male What is your relationship status?: How often do you talk on the phone with friends or family?: twice per week How often do you get together with friends or relatives?: never Do you belong to any clubs or organized social groups?: no Panel score (0-1 are the most socially isolated patients): 0 What type of physical activity do you participate in: walking Duration: 15-30 minutes/day Frequency: 5-6 times per week Maryam/Orthodoxy: Mandaen Special maryam needs: No Seatbelt use: always Helmet use: Yes Helmet use: always Drive 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 gas truck driver: No Do you feel safe at home: No (not with myself) Meds Allergies and Home Medications Allergies Allergy/AdvReac Type Severity Reaction Status Date / Time codeine Allergy Intermediate Verified 12/20/21 14:21 Home Medications Medication Instructions Recorded Confirmed Type lorazepam 1 mg tablet 1 mg PO BID PRN anxiety #14 tabs 10/25/21 12/20/21 Rx trazodone 50 mg tablet 50 mg PO QHS PRN sleep #30 tabs 10/25/21 12/20/21 Rx methadone 10 mg/5 mL oral solution 110 mg PO QAM 11/16/21 12/20/21 History buspirone 10 mg tablet 10 mg PO QHS 12/01/21 12/20/21 History famotidine 20 mg tablet 20 mg PO DAILY 12/20/21 12/20/21 History fluoxetine 20 mg capsule 20 mg PO DAILY 12/20/21 12/20/21 History gabapentin 300 mg capsule 300 mg PO PRN PRN 12/20/21 12/20/21 History sennosides 8.6 mg tablet (senna) tab PO DAILY 12/20/21 History Exam Const General: cooperative, healthy appearing, comfortable and no acute distress Orientation: alert, awake and oriented x3 HENMT Head: normal to inspection, normocephalic and atraumatic Face and sinus: normal facial exam Mouth: moist mucous membranes Eyes General: appearance normal, both eyes and all related structures Conjunctivae: conjunctivae normal Neck Neck: normal visual inspection, full ROM, trachea midline and supple Resp Effort & Inspection: normal respiratory effort and able to speak in complete sentences Auscultation: clear to auscultation bilaterally Cardio Rate: regular rate Rhythm: regular rhythm GI Palpation: soft and nontender Back/Spine/Pelvis Back: No back tenderness Skin General skin exam: no rashes or lesions noted Neuro General: patient alert, patient awake, patient oriented x3, moves all extremities and no focal motor deficits Cognition: normal cognition Speech: speech normal Gait: normal gait Motor: muscle tone normal throughout Sensory Exam: no sensory deficits noted Extrem General: normal to inspection, full ROM and capillary refill normal Psych Appearance: grossly normal Mental Status: mental status grossly normal Speech and Movement: speech and movement normal Mood: dysthymic mood Affect: sad Attitude: cooperative Thought Process: normal Thought Content: suicidality Insight: fair Judgment: fair Results Labs Result diagrams: 12/20/21 15:05 12/20/21 15:05 Labs: Laboratory Results - last 24 hr 12/20/21 12/20/21 12/20/21 15:05 15:05 15:05 WBC 7.77 RBC 4.67 Hgb 14.1 Hct 41.6 MCV 89 MCH 30.2 MCHC 33.9 RDW 11.9 Plt Count 230 MPV 11.5 H Immature Gran % 0.3 Neutrophils % 80.0 Lymphocytes % 11.1 Monocytes % 7.6 Eosinophils % 0.5 Basophils % 0.5 Nucleated RBC % 0.0 Absolute Neutrophils 6.22 Absolute Lymphocytes 0.86 L Absolute Monocytes 0.59 Absolute Eosinophils 0.04 Absolute Basophils 0.04 Sodium 137 Potassium 3.9 Chloride 103 Carbon Dioxide 27.0 Anion Gap 7.0 BUN 10 Creatinine 1.1 Estimated GFR/1.73 m2 >= 60.00 Glucose 111 H Calcium 11.2 H Total Bilirubin 0.9 AST 12 L ALT 23 Alkaline Phosphatase 121 H Total Protein 7.4 Albumin 3.8 TSH 0.15 L COVID-19 Source Nasal/Nares Last Vital Signs Temp 36.7 C 12/20/21 14:41 Pulse 87 12/20/21 14:41 BP 129/69 12/20/21 14:41 Pulse Ox 95 12/20/21 14:41
[2021-12-20 16:02] LABS: COVID-19 PCR Negative (Negative)
[2021-12-20 16:14] LABS: ETHANOL BLOOD < 3.0 mg/dL (<10)
[2021-12-20 16:15] LABS: FREE T4 0.96 ng/dL (0.76-1.46)
[2021-12-20 16:20] LABS: Salicylate < 2.8 mg/dL (<2.8)
--- NOTE | 2021-12-20 16:20 | CMSP_ITS ---
- If Service Date Differs Date of service: 12/20/21 Time of Service: 16:20 Care Management Safety Plan Status: Voluntary - Reason for Wait Reason for Wait: Inpatient Admission CHIEF COMPLAINT: Pedro Pablo presents in the ED via EMS, seeking a voluntary placement. He reports ongoing depression and suicidal ideation with a plan of overdosing on pills. Pedro Pablo was recently hospitalized at [facility] for similar complaints and discharged home last Friday. He tells CM he was discharged from the [place] even though he did not feel ready to leave. He states when he got home, it was a mess and his mood progressively worsened. 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 He names his sister Maura as a source of support and states he no longer has any friends, as he lost all of them when he quit using illicit drugs. He states he would like to leave the area and get a fresh start somewhere away from [place] but before he can do that, he needs to be emotionally stable. Pedro Pablo was evaluated by [facility]. Plan is for him to remain at [facility] voluntarily and to be reassessed daily by [facility] until a placement can be secured for him. VOLUNTARY FOR INPATIENT PSYCHIATRIC STABILIZATION. Patient is appropriate in all interactions since arriving at [facility]; Pt has demonstrated appropriate coping and communication skills, has articulated his or her needs and concerns and is fully engaged during staff interactions. Safety plan has been established with patient, and care team, to adhere to patient goals, identify restrictions based on behavioral status, address nutrition, and determine allowed personal belongings, tools for hygiene and personal care. Determine level of activity including ambulation, level of supervision, visitors, and determine privileges based on behaviors and level of engagement by pt. SAFETY PLAN: 1. Will remain on suicide precautions. In Paper Clothes 2. Will remain in room under direct supervision of one-on-one staff at all times provided by CPSO, SENIOR PROJECT ARCHITECT, SCRAP HANDLER centrifugal supervisor. 3. May have paper cups, plates, finger foods as well as a cardboard spoon with which to eat meals. 4. Follow [facility] Management of the Admitted Behavioral Health Patient policy. 5. Shower permitted with escort at RN discretion. 6. No personal belongings-soft items permitted at RN discretion. 7. Visitors-none at this time. 8. Activities: soft cart items, music tablet, television, and other activities at RN discretion. 9. Bathroom privileges with escort in the ED, available in room without limitation on M/S. 10. Phone: contact limited to family at this time, via [employer] hospital phone at RN discretion. SisterMaura ([phone]) is supportive. 11. Due to VOLUNTARY status, if patient wishes to leave [facility], staff will contact [facility] Crisis Screener ([phone]) and On-Call Assembler Installer Structures ([phone]) as soon as possible. In the event of elopement, notify [facility] Police ([phone]). Patient is currently voluntarily at [facility] and seeking inpatient admission when a bed becomes available. [facility] Frontline Insurance Sales Associate will continue seeking placement. Please contact the Airport Operations Supervisor Assembler Installer Structures ([phone]) and [facility] Insurance Sales Associate ([phone]) for any needed changes in the Safety Plan. Safety plan has been provided to interdepartmental care team.
[2021-12-20 16:21] LABS: Acetaminophen < 2 ug/mL (10-30)
--- NOTE | 2021-12-20 16:26 | PDOC.MHCN ---
Date of service: 12/20/21 Time of Service: 15:12 Mental Health Crisis Note Presenting Issue How did you arrive at the ED and why did you come: Client was brought to the ED via ambulance due to client's activie suicidal ideation. Client called [facility] stating he needed to go back to treatment. Precipitating Factors Client is having active suicidal thoughts. Client states he would have acted on these thoughts if he did not come into the emergency room. Client had a plan to attempt to hang himself or attempt to overdose on his prescriptions. Client's previous suicide attempt was an overdose. Disposition BEHAVIOR: Unremarkable EYE CONTACT: Unremarkable MOOD: Sad, Depressed, Anxious AFFECT: Congruent with mood APPETITE: Minimal to no appetite. Client states he has not eaten in two days. SLEEP(trouble falling/staying asleep: Client reports he has had a hard time sleeping all together. Client states he has not slept in two days. Plan Client will wait at [facility] for voluntary placement. DEAN Candelario will be completing this client's note and send referrals marietta 12/20/21. Signature Clinician's Name/Title: Kaitlynn Dickey, DEAN, [facility]
--- NOTE | 2021-12-20 16:29 | NUR.NOTE ---
attempt to find out if pt got his methadone today at [facility] . they are closed. a message was left on the control systems developer line at [id number] Note:
[2021-12-20 16:46] LABS: Bilirubin Negative (Negative); Blood Negative (Negative); Clarity Clear (Clear); Glucose Negative (Negative); Ketones Negative (Negative); Leukocyte Esterase Negative (Negative); Nitrite Negative (Negative)
[2021-12-20 16:51] VITALS: BP 129/69; PULSE 87; RESP 14; TEMP 36.7; O2SAT 95
[2021-12-20 16:52] VITALS: BP 117/71; PULSE 91; RESP 18; TEMP 35.8; O2SAT 97
[2021-12-20 16:59] LABS: *AMPHETAMINES SCREEN URINE Negative (Negative); *BARBITURATES SCREEN URINE Negative (Negative); *BENZODIAZEPINES SCREEN URINE Negative (Negative); Cannabinoids THC Negative (Negative); Cocaine Screen,Urine Positive (Negative); METHADONE URINE SCREEN Positive (Negative); OPIATES URINE SCREEN Negative (Negative)
[2021-12-20 17:07] LABS: Tricyclic Antidepressants Negative (Negative)
[2021-12-20] MEDS: busPIRone 5 MG TAB 10 MG PO (22:02)
[2021-12-20] MEDS: traZODone 50 MG TAB PO (22:04)
[2021-12-20] MEDS: Gabapentin 300 MG CAP PO (22:05)
[2021-12-20] MEDS: LORazepam 1 MG TAB PO (23:48)
[2021-12-21] MEDS: Acetaminophen 325 MG TAB 650 MG PO (06:06)
--- NOTE | 2021-12-21 08:51 | W.PM.DS.N ---
Date of service: 12/21/21 Time of Service: 08:51 DS: Diagnosis Discharge Diagnosis (1) Suicidal ideation: Status: Acute (2) Depression: Status: Chronic Discharge Plan Disposition Patient Disposition: [facility] Condition: Serious Discharge Details Reason For Visit: Major Depression with Suicidal Ideation Admit Date/Time: 12/20/21 15:51 Admit Provider: Barrington Gupta Attending Provider: Barrington Gupta Primary Care Provider: Brendon Vivar Hospital Course Hospital Course: This is an 26 year old male with history of major depression and suicidal ideation recently discharged from [facility] who presented to the [facility] ED with recurrent worsening symptoms.? He was medically cleared in the ED and underwent a mental health evaluation. He was admitted to the medical surgical unit for a voluntary inpatient psychiatric admission. He was accepted to [facility] and transferred. Home Meds and New Rx's Prescriptions: Continued methadone 10 mg/5 mL solution 110 mg PO QAM trazodone 50 mg tablet 50 mg PO QHS PRN (Reason: sleep) Qty: 30 0RF lorazepam 1 mg tablet 1 mg PO BID PRN (Reason: anxiety) Qty: 14 0RF buspirone 10 mg tablet 10 mg PO QHS sennosides [senna] 8.6 mg tablet PO DAILY Label Comments: TAKE TWO TABLETS BY MOUTH AT BEDTIME famotidine 20 mg tablet 20 mg PO DAILY Label Comments: TAKE ONE TABLET BY MOUTH EVERY DAY gabapentin 300 mg capsule 300 mg PO PRN PRN Label Comments: TAKE ONE CAPSULE BY MOUTH EVERY 6 HOURS NEEDED NOT TO EXCEED 2 IN 24 HOURS fluoxetine 20 mg capsule 20 mg PO DAILY Label Comments: TAKE ONE CAPSULE BY MOUTH EVERY DAY Discharge Instructions Stand Alone Forms: Nursing Discharge Form Activity:: Activity as Tolerated Equipment/Supplies:: No Equipment Needed Diet:: As Tolerated Discharge Orders Discharge Orders: Discharge Order (Routine); Ordered 12/21/21 Ordered By: Mandi Evans Discharge Data Discharge Date/Time-TO BE ENTERED AT DEPARTURE: 12/21/21 11:43 DS: Summary Time Spent with Patient providing and/or coordinating discharge services: Less than 30 minutes Status at Discharge Functional status at discharge: independent ambulation Overall status at discharge: patient is not back to baseline Mental Status: mental status grossly normal Speech and Movement: speech and movement normal Mood: congruent mood Affect: normal affect Exam Psych Mental Status: mental status grossly normal Speech and Movement: speech and movement normal Mood: congruent mood Affect: normal affect DS: Data Vitals/I&O Vitals and I&O: Vital Signs Temperature 35.8 C L 12/20/21 16:52 Temperature Source Tympanic 12/20/21 16:52 Pulse 91 H 12/20/21 16:52 Pulse Rhythm Regular 12/21/21 00:00 Respiratory Rate 18 12/20/21 16:52 Respiratory Effort Non-Labored 12/21/21 00:00 Respiratory Depth Normal 12/21/21 00:00 Respiratory Pattern Normal 12/21/21 00:00 Blood Pressure 117/71 12/20/21 16:52 Pulse Oximetry 97 12/20/21 16:52 Oxygen Delivery Method Room Air 12/20/21 16:52 Oxygen Flow Rate 0 12/20/21 16:52 Pain Level 7 12/20/21 16:52 Intake & Output 12/20/21 12/20/21 12/21/21 11:59 23:59 11:59 Intake Total 360 / 560 600 / 600 Balance 360 / 560 600 / 600 Weight 95.254 kg Intake: Oral 360 / 560 600 / 600 Other: Comment void x 1 Voiding Methods Toilet Toilet # Voids 1 Data Completed and Pending Labs on day of discharge: Labs from last 24 hours 12/20/21 12/20/21 12/20/21 16:38 16:38 15:05 WBC RBC Hgb Hct MCV MCH MCHC RDW Plt Count MPV Immature Gran % Neutrophils % Lymphocytes % Monocytes % Eosinophils % Basophils % Nucleated RBC % Absolute Neutrophils Absolute Lymphocytes Absolute Monocytes Absolute Eosinophils Absolute Basophils Sodium Potassium Chloride Carbon Dioxide Anion Gap BUN Creatinine Estimated GFR/1.73 m2 Glucose Calcium Total Bilirubin AST ALT Alkaline Phosphatase Total Protein Albumin TSH Free T4 Urine Color Yellow Urine Clarity Clear Urine pH 7.0 Ur Specific [place] 1.010 Urine Protein Negative Urine Ketones Negative Urine Blood Negative Urine Nitrite Negative Urine Bilirubin Negative Urine Urobilinogen 4.0 H Ur Leukocyte Esterase Negative Urine Glucose Negative Salicylates Urine Opiates Screen Negative Urine Methadone Screen Positive A Acetaminophen Ur Barbiturates Screen Negative Ur Tricyclics Screen Negative Ur Amphetamines Screen Negative U Benzodiazepines Scrn Negative Urine Cocaine Screen Positive A Ur THC Screen Negative Ethyl Alcohol COVID-19 Source Nasal/Nares SARS-CoV-2 (PCR) Negative 12/20/21 12/20/21 12/20/21 15:05 15:05 15:05 WBC 7.77 RBC 4.67 Hgb 14.1 Hct 41.6 MCV 89 MCH 30.2 MCHC 33.9 RDW 11.9 Plt Count 230 MPV 11.5 H Immature Gran % 0.3 Neutrophils % 80.0 Lymphocytes % 11.1 Monocytes % 7.6 Eosinophils % 0.5 Basophils % 0.5 Nucleated RBC % 0.0 Absolute Neutrophils 6.22 Absolute Lymphocytes 0.86 L Absolute Monocytes 0.59 Absolute Eosinophils 0.04 Absolute Basophils 0.04 Sodium 137 Potassium 3.9 Chloride 103 Carbon Dioxide 27.0 Anion Gap 7.0 BUN 10 Creatinine 1.1 Estimated GFR/1.73 m2 >= 60.00 Glucose 111 H Calcium 11.2 H Total Bilirubin 0.9 AST 12 L ALT 23 Alkaline Phosphatase 121 H Total Protein 7.4 Albumin 3.8 TSH 0.15 L Free T4 0.96 Urine Color Urine Clarity Urine pH Ur Specific [place] Urine Protein Urine Ketones Urine Blood Urine Nitrite Urine Bilirubin Urine Urobilinogen Ur Leukocyte Esterase Urine Glucose Salicylates < 2.8 Urine Opiates Screen Urine Methadone Screen Acetaminophen < 2 Ur Barbiturates Screen Ur Tricyclics Screen Ur Amphetamines Screen U Benzodiazepines Scrn Urine Cocaine Screen Ur THC Screen Ethyl Alcohol < 3.0 COVID-19 Source SARS-CoV-2 (PCR) PFSH All Active Problems (Updated 12/22/21 @ 00:01 by HAMMAD WILEY) Anxiety (Chronic) Anxiety (Chronic) Depression (Chronic) Chest pain (Acute) Indigestion (Acute) Anxiety (Chronic) MEN 1 syndrome (Acute) Depression (Chronic) Suicidal ideation (Acute) Elevated parathyroid hormone (Acute) Hyperlipidemia (Acute) Family history of coronary arteriosclerosis (Chronic) Father of AR at 50, mother had AR at 42 Family history of multiple endocrine neoplasia, type 1 (Acute) Severe anxiety with panic (Acute) Hypercalcemia (Acute) PTSD (post-traumatic stress disorder) (Acute) Cellulitis (Acute) Medical History Anxiety in acute stress reaction Cocaine use Surgical History No significant past surgical history Family History Mother Anxiety Asthma Depression Sister Anxiety Depression Father Cancer lung & stomach Depression Diabetes Hypertension MEN 1 (multiple endocrine neoplasia) Social History Smoking/Tobacco Use Status: Never Smoking risk assessment performed?: Yes Alcohol Intake: never Drug use: Current 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: 1 month clean Adopted: No Caregiver/Support person: No Foster care: No Household members: none Housing: house Number of Children: 0 Communication Needs: None Education Level: high school Do you need help understanding health information?: Never 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 and animals: Yes (Ally) Pets and animals: dog(s) Sexually active: No Do you think of yourself as: straight/heterosexual Current gender identity: male What is your relationship status?: How often do you talk on the phone with friends or family?: twice per week How often do you get together with friends or relatives?: never Do you belong to any clubs or organized social groups?: no Panel score (0-1 are the most socially isolated patients): 0 What type of physical activity do you participate in: walking Duration: 15-30 minutes/day Frequency: 5-6 times per week Maryam/Mormon: Mormonism Special maryam needs: No Seatbelt use: always Helmet use: Yes Helmet use: always 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
[2021-12-21] MEDS: Famotidine 20 MG TAB PO (08:57)
[2021-12-21] MEDS: FLUoxetine 20 MG CAP PO (08:57)
[2021-12-21] MEDS: Senna TAB 1 TAB PO (08:57)
[2021-12-21] MEDS: Methadone Liquid 10 MG/ML 110 MG PO (08:58)
[2021-12-21] MEDS: LORazepam 1 MG TAB PO (11:24)
--- NOTE | 2021-12-21 12:24 | PDOC.CMDIS ---
- If Service Date Differs Date of service: 12/21/21 Time of Service: 12:24 LACE Index Scoring Tool - Questions: Length of Stay (in days): 1 Acuity (Admit via E.D.?): Yes E.D. Visits: 22 - Answers: Total Score: 8 Risk of Readmission: Low Risk Care Management Discharge Reason for Hospitalization: Major depression with SI Discharge Plan: Pedro Pablo was accepted and transferred to [facility] today, which he was agreeable to. He transported via [facility], due to no available Operation Manager departments. He will follow up with [facility], his PCP, and his discharge plan of care. He is happy to be going for treatment. Patient/Family Education Needs: Review discharge instructions and limitations, discussion of self care needs including ask me three. Services Needed at Discharge: Psychiatric Facility ([facility]), Transportation ([facility]) - Disposition Disposition: [place] Transport via of: EMS
== END 2021-12-21 11:43 | disposition short-term general hospital (02) ==
LOC: ER 16:25 → MS 16:47
PROVIDERS: Admitting Provider Internal Medicine; Emergency Provider Physician Assistant; PCP Family Medicine; Visit Provider Internal Medicine
DX: F32.9 Major depressive disorder, single episode, unspecified (principal); F11.20 Opioid dependence, uncomplicated; R45.851 Suicidal ideations; R07.89 Other chest pain; E31.21 Multiple endocrine neoplasia [MEN] type I; E78.5 Hyperlipidemia, unspecified; R79.89 Other specified abnormal findings of blood chemistry; F41.0 Panic disorder [episodic paroxysmal anxiety]; Z82.49 Family history of ischemic heart disease and other diseases of the circulatory system; Z83.41 Family history of multiple endocrine neoplasia [MEN] syndrome; Z20.822 Contact with and (suspected) exposure to COVID-19; E83.52 Hypercalcemia; F43.10 Post-traumatic stress disorder, unspecified
CPT/HCPCS: 36415; 80053; 80307; 87635; 99285; 80320; 80329; 81003; 84439; 84443; 85025; 99217; 99219; G0378

== ENCOUNTER 2022-03-06 14:12 | Emergency (ER) | payer MEDICAID, SELFPAY ==
[2022-03-06 14:46] VITALS: BP 126/87; PULSE 94; RESP 16; TEMP 37; O2SAT 98
--- NOTE | 2022-03-06 15:00 | DI.CT_ITS ---
Exam(s) CT ABDOMEN PELVIS W EXAM: CT ABDOMEN PELVIS W CLINICAL HISTORY: RLQ abd pain. TECHNIQUE: Imaging Protocol: Axial computed tomography images with coronal and sagittal reformatted images were created and reviewed CONTRAST MATERIAL: Intravenous: Omnipaque 100cc Oral: None COMPARISON: CT CT CHEST PE CTA from 09/27/2021 FINDINGS: VISUALIZED LUNG BASES: No nodules nor pleural effusions evident. ABDOMEN: There is no ascites. LIVER: There is mild dilatation of intrahepatic ducts. CBD diameter is 8-9 millimeters. There is no calculus in the lower CBD. There is a subcapsular area of hypodensity at the junction of right and left hepatic lobes which prob ably represents fatty parenchymal change. GALLBLADDER/BILIARY: No obvious gallbladder pathology. Slightly dilated measuring 8-9 millimeters. PANCREAS: No evidence of pancreatic mass nor dilatation of the pancreatic duct. SPLEEN: Spleen size upper normal. Small calcified granuloma in the lateral spleen noted. No ominous splenic masses. Splenic and portal veins are patent. ADRENALS: There are no significant adrenal masses. KIDNEYS:Small 9 millimeter benign cyst in left kidney. No solid renal masses, calculi, or hydronephr osis.. ABDOMINAL AORTA: Abdominal aorta is not enlarged. LYMPH NODES:There is no retroperitoneal nor paraaortic adenopathy. ABDOMINAL WALL: No evidence of significant anterior abdominal wall nor inguinal hernia. GI: There is no evidence of bowel obstruction, free air, nor abscess. PELVIS: GI: Abundant fecal material noted throughout the colon. No evidence of appendicitis.No evidence of s igmoid diverticulitis.Abundant fecal material in the rectum also noted. LYMPH NODES: Both small mesenteric lymph nodes noted all measuring less than 1 cm. REPRODUCTIVE: Prostate not enlarged. Seminal vesicles unremarkable URINARY BLADDER: No calculi nor obvious masses evident OSSEOUS: No significant osseous lesions. SI joints unremarkable. No fractures IMPRESSION: 1. Gallbladder appears unremarkable. There is mild dilatation of the biliary tree, both intra and ex trahepatic. Recommend ultrasound of the gallbladder/biliary tree and correlation with appropriate bl ood work. 2. There is abundant fecal material throughout the colon, including the rectosigmoid. No significant diverticular disease. No appendicitis. No colitis pattern evident. No bowel obstruction. 3. No evidence of ascites. 4. RADIATION DOSE DELIVERED: 1,062.63mGy.cm Total DLP DATA REPOSITORY: All CT scans at this facility are submitted to the National Radiology Data Registry (NRDR) Dose Index Registry (DIR) with the [employer] (ACR). RADIATION OPTIMIZATION: All CT scans at this facility use at least one of these dose optimization te chniques: automated exposure control; mA and/or kV adjustment per patient size (includes targeted exa ms where dose is matched to clinical indication); or iterative reconstruction.
[2022-03-06 15:31] LABS: Bilirubin Negative (Negative); Blood Negative (Negative); Clarity Clear (Clear); Glucose Negative (Negative); Ketones Negative (Negative); Leukocyte Esterase Negative (Negative); Nitrite Negative (Negative)
[2022-03-06 15:32] LABS: Abs Immature Grans 0.01 10^3/uL (0.0-0.06); Absolute Basophil Count 0.06 10^3/uL (0.0-0.2); Absolute Eosinophil Count 0.27 10^3/uL (0.0-0.7); Absolute Lymphocyte Count 2.09 10^3/uL (1.2-3.4); Absolute Monocyte Count 0.92 10^3/uL (0.1-0.8); Absolute Neutrophil Count 3.01 10^3/uL (1.2-6.7); Basophils % 0.9; Eosinophils % 4.2; HCT 38.6 % (40.0-50.0); HGB 12.9 g/dL (13.5-17.5); Immature Grans % 0.2; Lymphocytes % 32.9; MCH 30.8 pg (27.0-33.0); MCHC 33.4 % (32.0-36.0); MCV 92 fL (80-95); MPV 10.9 fL (8.0-11.0); Monocytes % 14.5; Neutrophils % 47.3; Platelet Count 245 10^3/uL (130-400); RBC 4.19 10^6/uL (4.36-5.78); RDW 12.4 % (11.8-14.1); RDW-SD 41.7 fL; WBC 6.36 10^3/uL (4.4-10.8)
--- NOTE | 2022-03-06 15:38 | ED.GENADUL_ITS ---
Discharge Plan Disposition Patient Disposition: HOME Condition: Stable Discharge Details Clinical Impression: Abdominal pain Primary Care Provider: Brendon Vivar ED Provider: Barrington Arciniega Home Meds and New Rx's Prescriptions: Continued methadone 10 mg/5 mL solution 110 mg PO QAM trazodone 50 mg tablet 50 mg PO QHS PRN (Reason: sleep) Qty: 30 0RF buspirone 10 mg tablet 20 mg PO QAM sennosides [senna] 8.6 mg tablet PO DAILY Label Comments: TAKE TWO TABLETS BY MOUTH AT BEDTIME gabapentin 300 mg capsule 600 mg PO TID Label Comments: TAKE ONE CAPSULE BY MOUTH EVERY 6 HOURS NEEDED NOT TO EXCEED 2 IN 24 HOURS Discharge Instructions Instructions: Abdominal Pain (ED) Additional Instructions: Work-up does not reveal any obvious emergent process. As we discussed your CT findings reveals that your gallbladder is slightly dilated, will obtain ultrasound tomorrow. I have set this up for you. CT also reveals some constipation. Discussed the importance of adequate hydration, [id number] stool softeners, laxatives, bulking agents, etc. Please watch for new or worsening symptoms and return to the ER for any concerns. Lastly, I would like you to contact your primary care provider tomorrow to discuss your ongoing symptoms and need for reevaluation. If symptoms are to persist an outpatient referral to GI and/or surgical services may be required Discharge Data Discharge Date/Time-TO BE ENTERED AT DEPARTURE: 03/06/22 17:44 Medical Decision Making Patient presenting to the emergency department for chief complaint of abdominal pain for the last hour to an hour and a half. He does report some constipation issues and today when he had bowel movement it had blood noted. Patient denies any injury or trauma. Does state that he is on methadone and does have constipation and stool softeners have not worked. Patient is significantly tender in the right lower quadrant with otherwise benign exam. We will plan on checking labs and CT imaging for rule out of acute appendicitis versus bowel obstruction versus other intra-abdominal pathology. Pt signed out to Minh MORALES pending results. HPI General Mode of arrival: ambulatory . Date/Time Provider Initiated Documentation: 03/06/22 14:39 . Limitations to Documentation: no limitations . Information obtained by: patient and RN notes reviewed . History of Present Illness 26 year old M presents to the emergency department with the chief complaint of abd pain , described as moderate and similar to prior episodes, with intensity rated at 8. Quality is described as aching and sharp, and is localized to the right. Patient reports radiation to back. Patient started experiencing this hour(s) (2) and it has been constant. No relieving factors improve symptom(s), No exacerbating factors reported . Patient did receive the following treatments prior to arrival, none Related Data Home Medications Medication Instructions Recorded Confirmed trazodone 50 mg tablet 50 mg PO QHS PRN sleep #30 tabs 10/25/21 03/06/22 methadone 10 mg/5 mL oral solution 110 mg PO QAM 11/16/21 03/06/22 buspirone 10 mg tablet 20 mg PO QAM 12/01/21 03/06/22 gabapentin 300 mg capsule 600 mg PO TID 12/20/21 03/06/22 sennosides 8.6 mg tablet (senna) tab PO DAILY 12/20/21 Previous Rx's Medication Instructions Recorded trazodone 50 mg tablet 50 mg PO QHS PRN sleep #30 tabs 10/25/21 Allergies Allergy/AdvReac Type Severity Reaction Status Date / Time codeine Allergy Intermediate Verified 03/06/22 14:52 General Stated Complaint: Abd Prob ADRIANA: 3 Review of Systems Constitutional Constitutional: Denies chills, Denies fever(s) and Denies poor appetite Cardiovascular Cardiovascular: Denies chest pain and Denies dyspnea Respiratory Respiratory: Denies cough and Denies dyspnea Gastrointestinal Gastrointestinal: Reports as per HPI, Reports abdominal pain, Denies melena, Reports hematochezia, Denies change in bowel habits, Denies constipation, Reports diarrhea, Reports nausea and Denies vomiting Genitourinary Genitourinary: Denies hematuria, Denies difficulty urinating, Denies urinary hesitancy, Denies urinary incontinence and Denies urinary urgency Integumentary/Breasts Skin/Breast: Denies rash PFSH All Active Problems (Updated 03/06/22 @ 17:32 by ANDREW Chow) Abdominal pain (Acute) Anxiety (Chronic) Depression (Chronic) Depression (Chronic) Suicidal ideation (Acute) Elevated parathyroid hormone (Acute) Hyperlipidemia (Acute) Family history of coronary arteriosclerosis (Chronic) Father of [place] at 50, mother had VT at 42 Family history of multiple endocrine neoplasia, type 1 (Acute) Severe anxiety with panic (Acute) Hypercalcemia (Acute) PTSD (post-traumatic stress disorder) (Acute) Cellulitis (Acute) Medical History Anxiety in acute stress reaction Cocaine use Surgical History No significant past surgical history Family History Mother Anxiety Asthma Depression Sister Anxiety Depression Father Cancer lung & stomach Depression Diabetes Hypertension MEN 1 (multiple endocrine neoplasia) Social History Smoking/Tobacco Use Status: Never Smoking risk assessment performed?: Yes Alcohol Intake: never Drug use: Current 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: 1 month clean Adopted: No Caregiver/Support person: No Foster care: No Household members: none Housing: house Number of Children: 0 Communication Needs: None Education Level: high school Do you need help understanding health information?: Never 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 and animals: Yes (Ally) Pets and animals: dog(s) Sexually active: No Do you think of yourself as: straight/heterosexual Current gender identity: male What is your relationship status?: How often do you talk on the phone with friends or family?: twice per week How often do you get together with friends or relatives?: never Do you belong to any clubs or organized social groups?: no Panel score (0-1 are the most socially isolated patients): 0 What type of physical activity do you participate in: walking Duration: 15-30 minutes/day Frequency: 5-6 times per week Maryam/Methodist: Anabaptist Special maryam needs: No Seatbelt use: always Helmet use: Yes Helmet use: always 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 Exam Const General: cooperative Orientation: alert, awake and oriented x3 Resp Effort & Inspection: normal respiratory effort and able to speak in complete sentences Auscultation: clear to auscultation bilaterally Cardio Rate: regular rate Rhythm: regular rhythm Heart Sounds: S1 normal and S2 normal GI Palpation: soft, no hepatosplenomegaly, not firm, no guarding, no masses, no pulsatile masses, not rigid, no splenomegaly and tender in the RUQ and at McBurney's point; Cedillo's sign negative, psoas sign negative and with no rebound tenderness Auscultation: normal bowel sounds Back/Spine/Pelvis Back: no CVA tenderness Neuro General: patient alert, patient awake, patient oriented x3, gait normal and moves all extremities Course Vital Signs Vital signs: Vital Signs Temperature 37.0 C 03/06/22 14:46 Pulse 94 H 03/06/22 14:46 Respiratory Rate 16 03/06/22 14:46 Blood Pressure 126/87 03/06/22 14:46 Pulse Oximetry 98 03/06/22 14:46 Temperature 37.0 C 03/06/22 14:46 Temperature Source Temporal Artery Scan 03/06/22 14:46 Pulse 94 H 03/06/22 14:46 Respiratory Rate 16 03/06/22 14:46 Respiratory Effort Non-Labored 03/06/22 14:50 Blood Pressure 126/87 03/06/22 14:46 Blood Pressure Position Sitting 03/06/22 14:46 Pulse Oximetry 98 03/06/22 14:46 Oxygen Delivery Method Room Air 03/06/22 14:46 Oxygen Flow Rate 0 03/06/22 14:46 Pain Level 6 03/06/22 14:46 Lab/Test Results Lab/Test Results: Laboratory Tests Range/Units 03/06/22 03/06/22 15:23 15:25 WBC (4.4-10.8) 10^3/uL 6.36 RBC (4.36-5.78) 10^6/uL 4.19 L Hgb (13.5-17.5) g/dL 12.9 L Hct (40.0-50.0) % 38.6 L MCV (80-95) fL 92 MCH (27.0-33.0) pg 30.8 MCHC (32.0-36.0) % 33.4 RDW (11.8-14.1) % 12.4 Plt Count (130-400) 10^3/uL 245 MPV (8.0-11.0) fL 10.9 Immature Gran % 0.2 Neutrophils % 47.3 Lymphocytes % 32.9 Monocytes % 14.5 Eosinophils % 4.2 Basophils % 0.9 Nucleated RBC % (0.0-0.3) % 0.0 Absolute Neutrophils (1.2-6.7) 10^3/uL 3.01 Absolute Lymphocytes (1.2-3.4) 10^3/uL 2.09 Absolute Monocytes (0.1-0.8) 10^3/uL 0.92 H Absolute Eosinophils (0.0-0.7) 10^3/uL 0.27 Absolute Basophils (0.0-0.2) 10^3/uL 0.06 Urine Color (Yellow) Yellow Urine Clarity (Clear) Clear Urine pH (5-8) 7.0 Ur Specific [place] (1.005-1.025) 1.020 Urine Protein (Negative) mg/dL Negative Urine Ketones (Negative) mg/dL Negative Urine Blood (Negative) Negative Urine Nitrite (Negative) Negative Urine Bilirubin (Negative) Negative Urine Urobilinogen (Up TO 0.2) EU/dL 1.0 H Ur Leukocyte Esterase (Negative) Negative Urine Glucose (Negative) mg/dL Negative Sign Out Sign Out Data: Sign Out Comment: Patient pending labs and CT imaging along with disposition for chief complaint of abdominal pain with constipation and report of blood noted when wiping. Last updated by Crow Gama NP at 03/06/22 15:41
--- NOTE | 2022-03-06 15:45 | RT.EKG_ITS ---
APPROVED REPORT Exam: Resting ECG Reason for Exam: chest pain Patient Location: E HR:71 bpm ECG Measurements Heart Rate 71 AXIS VA 195 P 43 QRSd 93 QRS 54 QT 376 T 28 QTc 410 Conclusion Sinus rhythm...normal P axis, V-rate 60- 99
[2022-03-06 15:47] LABS: ALT 23 U/L (16-63); AST 16 U/L (15-37); Albumin 3.6 g/dL (3.4-5.0); Alkaline Phosphatase 135 U/L (46-116); Anion Gap 3.4 mmol/L (3-11); BUN 10 mg/dL (7-18); Bilirubin, Total 0.3 mg/dL (0.2-1.0); CO2 32.6 mmol/L (21.0-32.0); Calcium 10.7 mg/dL (8.5-10.1); Chloride 103 mmol/L (98-107); Estimated GFR 105.14 (mL/min/1.73m2); Glucose 99 mg/dL (74-106); Lipase 60 U/L (73-393); Magnesium 1.8 mg/dL (1.8-2.4); Potassium 4.1 mmol/L (3.5-5.1); Sodium 139 mmol/L (136-145); Total Protein 7.6 g/dL (6.4-8.2)
[2022-03-06 16:04] VITALS: TEMP 37
[2022-03-06] MEDS: Ketorolac 15 MG/ML VIAL IVP (16:04)
[2022-03-06] MEDS: Normal Saline 1,000 ML 1000 ML IV (16:04)
[2022-03-06] MEDS: Ondansetron 4 MG/2 ML VIAL IVP (16:05)
[2022-03-06 16:21] VITALS: BP 120/82; PULSE 78; RESP 24; TEMP 37; O2SAT 99
[2022-03-06 16:33] LABS: Troponin I < 50 ng/L (<or=60)
[2022-03-06] MEDS: Omnipaque 350 MG/ML 100 ML BTL IJ (16:36)
[2022-03-06] MEDS: Normal Saline Flush 10 ML SYR IVP (16:39)
--- NOTE | 2022-03-06 17:21 | ED.PROG_ITS ---
Date of service: 03/06/22 Time of Service: 17:22 Medical Decision Making I assumed care of this 26-year-old gentleman from my colleague MANPREET Gama, please see his initial HPI and examination. Awaiting laboratory values and CT imaging. Upon my evaluation patient reports chronic constipation for at least a month or so. Clinically he appears well, nontoxic. Understands we are awaiting laboratory values and CT imaging. Laboratory values do not reveal any evidence of leukocytosis. Mild chronic anemia with a hemoglobin of 12.9 and hematocrit 38.6 platelet count appropriate at 245. Electrolytes unremarkable. Creatinine 1.0 with a GFR of 105.14. Glucose 99. Magnesium 1.8 total bili 0.3 AST 16 ALT 23 alk phosphatase 135. Troponin less than 50. Lipase 60, urinalysis without evidence of infection. CT imaging reveals gallbladder appears unremarkable but there is mild dilatation of the biliary tree, recommend ultrasound. There is abundant fecal matter throughout the colon including rectosigmoid. No appendicitis. No obstruction. Discussed CT findings with patient. We will set up for an ultrasound of his gallbladder tomorrow. We discussed his laboratory values and entire work-up. Patient will continue his constipation regimen we discussed the importance of stool softeners, laxatives, bulking agents, ample fluids to avoid dehydration. Patient patient plans to follow-up with his PCP to discuss his ongoing constipation and potential need for outpatient referral to surgical services or GI team. Standard discharge and return precautions were provided. Patient understands, is agreeable to this plan, and has no additional questions or concerns upon discharge. This documentation was generated using [employer] dictation system, please disregard any oddities of phrase or misspellings. Medical Records Medical records reviewed: Yes I reviewed the patient's medical records. Lab Data Lab results reviewed: Yes I reviewed the patient's lab results. Labs: Laboratory Tests Range/Units 03/06/22 03/06/22 03/06/22 15:23 15:25 15:25 WBC (4.4-10.8) 10^3/uL 6.36 RBC (4.36-5.78) 10^6/uL 4.19 L Hgb (13.5-17.5) g/dL 12.9 L Hct (40.0-50.0) % 38.6 L MCV (80-95) fL 92 MCH (27.0-33.0) pg 30.8 MCHC (32.0-36.0) % 33.4 RDW (11.8-14.1) % 12.4 Plt Count (130-400) 10^3/uL 245 MPV (8.0-11.0) fL 10.9 Immature Gran % 0.2 Neutrophils % 47.3 Lymphocytes % 32.9 Monocytes % 14.5 Eosinophils % 4.2 Basophils % 0.9 Nucleated RBC % (0.0-0.3) % 0.0 Absolute Neutrophils (1.2-6.7) 10^3/uL 3.01 Absolute Lymphocytes (1.2-3.4) 10^3/uL 2.09 Absolute Monocytes (0.1-0.8) 10^3/uL 0.92 H Absolute Eosinophils (0.0-0.7) 10^3/uL 0.27 Absolute Basophils (0.0-0.2) 10^3/uL 0.06 Sodium (136-145) mmol/L 139 Potassium (3.5-5.1) mmol/L 4.1 Chloride (98-107) mmol/L 103 Carbon Dioxide (21.0-32.0) mmol/L 32.6 H Anion Gap (3-11) mmol/L 3.4 BUN (7-18) mg/dL 10 Creatinine (0.70-1.30) mg/dL 1.0 Est GFR (CKD-EPI 2020) (mL/min/1.73m2) 105.14 Glucose (74-106) mg/dL 99 Calcium (8.5-10.1) mg/dL 10.7 H Magnesium (1.8-2.4) mg/dL 1.8 Total Bilirubin (0.2-1.0) mg/dL 0.3 AST (15-37) U/L 16 ALT (16-63) U/L 23 Alkaline Phosphatase (46-116) U/L 135 H Troponin I (<or=60) ng/L Total Protein (6.4-8.2) g/dL 7.6 Albumin (3.4-5.0) g/dL 3.6 Lipase (73-393) U/L 60 Urine Color (Yellow) Yellow Urine Clarity (Clear) Clear Urine pH (5-8) 7.0 Ur Specific [place] (1.005-1.025) 1.020 Urine Protein (Negative) mg/dL Negative Urine Ketones (Negative) mg/dL Negative Urine Blood (Negative) Negative Urine Nitrite (Negative) Negative Urine Bilirubin (Negative) Negative Urine Urobilinogen (Up TO 0.2) EU/dL 1.0 H Ur Leukocyte Esterase (Negative) Negative Urine Glucose (Negative) mg/dL Negative Range/Units 03/06/22 15:25 WBC (4.4-10.8) 10^3/uL RBC (4.36-5.78) 10^6/uL Hgb (13.5-17.5) g/dL Hct (40.0-50.0) % MCV (80-95) fL MCH (27.0-33.0) pg MCHC (32.0-36.0) % RDW (11.8-14.1) % Plt Count (130-400) 10^3/uL MPV (8.0-11.0) fL Immature Gran % Neutrophils % Lymphocytes % Monocytes % Eosinophils % Basophils % Nucleated RBC % (0.0-0.3) % Absolute Neutrophils (1.2-6.7) 10^3/uL Absolute Lymphocytes (1.2-3.4) 10^3/uL Absolute Monocytes (0.1-0.8) 10^3/uL Absolute Eosinophils (0.0-0.7) 10^3/uL Absolute Basophils (0.0-0.2) 10^3/uL Sodium (136-145) mmol/L Potassium (3.5-5.1) mmol/L Chloride (98-107) mmol/L Carbon Dioxide (21.0-32.0) mmol/L Anion Gap (3-11) mmol/L BUN (7-18) mg/dL Creatinine (0.70-1.30) mg/dL Est GFR (CKD-EPI 2020) (mL/min/1.73m2) Glucose (74-106) mg/dL Calcium (8.5-10.1) mg/dL Magnesium (1.8-2.4) mg/dL Total Bilirubin (0.2-1.0) mg/dL AST (15-37) U/L ALT (16-63) U/L Alkaline Phosphatase (46-116) U/L Troponin I (<or=60) ng/L < 50 Total Protein (6.4-8.2) g/dL Albumin (3.4-5.0) g/dL Lipase (73-393) U/L Urine Color (Yellow) Urine Clarity (Clear) Urine pH (5-8) Ur Specific [place] (1.005-1.025) Urine Protein (Negative) mg/dL Urine Ketones (Negative) mg/dL Urine Blood (Negative) Urine Nitrite (Negative) Urine Bilirubin (Negative) Urine Urobilinogen (Up TO 0.2) EU/dL Ur Leukocyte Esterase (Negative) Urine Glucose (Negative) mg/dL ECG Data Attestation: I personally reviewed and interpreted this ECG (s) as follows: Interpretation: Sinus rhythm, ventricular to 71, no STEMI. Exam Const General: cooperative, healthy appearing, comfortable and no acute distress Orientation: alert and awake HENIN Head: normal to inspection, normocephalic and atraumatic Face and sinus: normal facial exam Mouth: moist mucous membranes Eyes Conjunctivae: conjunctivae normal Neck Neck: normal visual inspection, full ROM, trachea midline and supple GI Inspection: normal to inspection Palpation: soft, not firm, no guarding, no pulsatile masses and tender (Lower, slightly worse right lower quadrant) not at McBurney's point, Cedillo's sign negative and with no rebound tenderness Back/Spine/Pelvis Back: No back tenderness Skin General skin exam: no rashes or lesions noted Neuro General: patient alert, patient awake, moves all extremities and no focal motor deficits Cognition: normal cognition Speech: speech normal Gait: normal gait Sensory Exam: no sensory deficits noted Psych Appearance: grossly normal Mental Status: mental status grossly normal Sign Out Sign Out Data: Sign Out Comment: Patient pending labs and CT imaging along with disposition for chief complaint of abdominal pain with constipation and report of blood noted when wiping. Last updated by Crow Gama NP at 03/06/22 15:41 Discharge Plan Disposition Patient Disposition: HOME Condition: Stable Discharge Details Clinical Impression: Abdominal pain Primary Care Provider: Brendon Vivar ED Provider: Barrington Arciniega Home Meds and New Rx's Prescriptions: Continued methadone 10 mg/5 mL solution 110 mg PO QAM trazodone 50 mg tablet 50 mg PO QHS PRN (Reason: sleep) Qty: 30 0RF buspirone 10 mg tablet 20 mg PO QAM sennosides [senna] 8.6 mg tablet PO DAILY Label Comments: TAKE TWO TABLETS BY MOUTH AT BEDTIME gabapentin 300 mg capsule 600 mg PO TID Label Comments: TAKE ONE CAPSULE BY MOUTH EVERY 6 HOURS NEEDED NOT TO EXCEED 2 IN 24 HOURS Discharge Instructions Instructions: Abdominal Pain (ED) Additional Instructions: Work-up does not reveal any obvious emergent process. As we discussed your CT findings reveals that your gallbladder is slightly dilated, will obtain ultrasound tomorrow. I have set this up for you. CT also reveals some constipation. Discussed the importance of adequate hydration, yatu-xnt-nxtjpys stool softeners, laxatives, bulking agents, etc. Please watch for new or worsening symptoms and return to the ER for any concerns. Lastly, I would like you to contact your primary care provider tomorrow to discuss your ongoing symptoms and need for reevaluation. If symptoms are to persist an outpatient referral to GI and/or surgical services may be required
[2022-03-06 17:23] VITALS: BP 100/62; PULSE 79; TEMP 36.4; O2SAT 98
[2022-03-06 17:42] VITALS: PULSE 77; RESP 17; TEMP 37.2; O2SAT 100
--- NOTE | 2022-03-06 18:53 | NUR.NOTE ---
Request for RUQ US for diltation of biliary tree to be done 03/07/22 follow up in ED Nursing Note:
== END 2022-03-06 17:44 | disposition home or self-care (01) ==
PROVIDERS: Nurse Practitioner Family; Emergency Provider Physician Assistant; PCP Family Medicine
DX: R10.31 Right lower quadrant pain (principal); R07.9 Chest pain, unspecified; K92.1 Melena; K59.00 Constipation, unspecified
CPT/HCPCS: 36415; 80053; 83690; 93005; 96361; 96374; 96375; 99285; 74177; 81003; 83735; 84484; 85025; 93010; 99284; J1885; J2405; J3490

== ENCOUNTER → 2022-03-07 09:00 | Outpatient (CLI) | payer MEDICAID, SELFPAY ==
--- NOTE | 2022-03-07 | DI.US_ITS ---
Exam(s) US ABDOMEN LIMITED EXAM: US ABDOMEN LIMITED CLINICAL HISTORY: DILATION OF BILIARY TREE TECHNIQUE: Ultrasound abdomen performed using standard protocol. COMPARISON: CT CT CHEST PE ABD PELVIS W from 07/04/[address] CHEST PE CTA from 09/27/[address] ABDOMEN PELVIS W from 03/06/2022 FINDINGS: LIVER: Normal size and echogenicity. No focal liver lesions are seen.. Left lobe of the liver was partially obscured by bowel gas. GALLBLADDER: No evidence of cholelithiasis. No evidence of wall thickening. No pericholecystic fluid identified. GUERRA'S SIGN: Negative. BILIARY SYSTEM: The common bile duct is measured at 10 millimeters, dilated for the patient's age. T he biliary dilatation appears stable since at least since June of 2021. The entire length of the common bile duct was not well seen due to bowel gas. No intrahepatic biliary ductal dilation. RIGHT KIDNEY: Normal size. No evidence of renal calculi. No evidence of hydronephrosis. No suspicious renal mass. No cyst identified. PANCREAS: Normal where visualized. Partially obscured by bowel gas. ABDOMINAL AORTA AND IVC: Visualized portions normal caliber. ASCITES: None seen. IMPRESSION: Mild dilatation of the common bile duct, stable compared to prior CT of June 2021 DATA REPOSITORY:
--- OUTSIDE RECORDS SUMMARY | 2022-03-07 09:03 | XMS_ITS | Continuity of Care Document ---
:1995 Author Organization [facility] Address [address] [place] [address]- Care Team Providers Name Role Phone Jacquie Steward Primary Care Physician Unavailable Encounter BVT Date(s): 01/21/22 - 01/21/[address] [address]- [phone] Encounter Diagnosis Cough on exercise (Discharge Diagnosis) - 01/21/22 Discharge Disposition: Home or Self Care Attending Physician: PRAKASH GARRISON Admitting Physician: PRAKASH GARRISON Allergies, Adverse Reactions, Alerts Substance Reaction Severity Status codeine1 Severe Active 1I pass out Assessment and Plan Extracted from: Title: General Medical Problem *ED Author: PRAKASH GARRISON Date: 01/21/22 History of Present Illness 26-year-old male with history of PTSD, a nxiety, and depression presents for evaluation of cough. Patient states that he had dinner in [place] and was walking up a hill when he began feeling short of breath and had a deep cough. He did not have a cough earlier in the day. He did have COVID 2 weeks ago but tested negative. The hospital this morning. He is currently awaiting placement at [facility]. This time he no longer has a co [facility]. He has not any fevers or chills. No leg pain or swelling. It is very hot outside today. No history of asthma. Review of Systems Constitutional symptoms: Negative except as documented in HPI. Skin symptoms: Negative except as docume nted in HPI. ENMT symptoms: Negative except as docume nted in HPI. Respiratory symptoms: Cough. Cardiovascular symptoms: Negative except as documented in HPI. Gastrointestinal symptoms: Negative exce pt as documented in HPI. Genitourinary symptoms: Negative except as documented in HPI. Musculoskeletal symptoms: Negative excep t as documented in HPI. Neurologic symptoms: Negative except as documented in HPI. Psychiatric symptoms: Anxiety, depressio n. Health Status Allergies: Allergic Reactions (Selected) Severe Codeine- No reactions were documented.. Medications: (Selected) Inpatient Medications Ordered Tessalon Perles: 200 mg = 2 cap(s), Oral , Once Documented Medications Documented FLUoxetine 60 mg oral tablet: 60 mg = 1 tab(s), Oral, Daily, 0 Refill(s) busPIRone: 20 mg, Oral, TID, 0 Refill(s) cloNIDine 0.1 mg oral tablet: 0.1 mg = 1 tab(s), Oral, Daily, 0 Refill(s) cloNIDine 0.1 mg oral tablet: Q 4 hours, PRN: Anxiety, 0 Refill(s) famotidine 20 mg oral tablet: 0 Refill(s ) gabapentin 300 mg oral capsule: 300 mg = 1 cap(s), TID, 0 Refill(s) senna 8.6 mg oral tablet: 17.2 mg = 2 ta b(s), Once a day (at bedtime), 0 Refill(s) traZODone 100 mg oral tablet: 100 mg = 1 tab(s), Once a day (at bedtime), 0 Refill(s). Past Medical/ Family/ Social History Medical history: No active or resolved past medical histo ry items have been selected or recorded.. Surgical history: No active procedure history items have b een selected or recorded.. Family history: No family history items have been select ed or recorded.. Social history: Social & Psychosocial History Social History Alcohol Never Substance Abuse Past, Cocaine Tobacco Never tobacco user Tobacco Use:. Electronic Cigarette/Vaping Electronic Cigarette Use: Never. Psychosocial History No active psychosocial history has been recorded . Problem list: Active Problems (3) Anxiety Multiple endocrine tumasia PTSD (post-traumatic stress disorder) . Physical Examination Vital Signs Vital Signs 01/21/2022 20:11 EDT Temperature Temporal Artery 36.5 DegC Peripheral Pulse Rate 76 bpm Respiratory Rate 14 br/min Systolic Blood Pressure 129 mmHg Diastolic Blood Pressure 77 mmHg SpO2 99 % 01/21/2022 8:44 EDT Temperature Temporal Artery 36.4 DegC Peripheral Pulse Rate 91 bpm Systolic Blood Pressure 119 mmHg Diastolic Blood Pressure 70 mmHg SpO2 97 % 01/20/2022 10:32 EDT Temperature Temporal Artery 37.1 DegC Peripheral Pulse Rate 76 bpm Respiratory Rate 18 br/min Systolic Blood Pressure 115 mmHg Diastolic Blood Pressure 76 mmHg SpO2 96 % . Measurements 01/21/2022 20:20 EDT Weight Dosing 102.000 kg 01/21/2022 20:20 EDT Height/Length Dosing 175.000 cm 01/21/2022 20:11 EDT Height/Length Estimated 175.000 cm Weight Estimated 102.000 kg 01/21/2022 8:57 EDT Weight Dosing 102.000 kg 01/21/2022 8:57 EDT Height/Length Dosing 175.000 cm 01/21/2022 8:44 EDT Height/Length Estimated 175.000 cm Weight Estimated 102.000 kg 01/20/2022 10:42 EDT Height/Length Dosing 175.000 cm Weight Dosing 99.790 kg 01/20/2022 10:32 EDT Height/Length Estimated 175.000 cm Weight Estimated 99.790 kg . Basic Oxygen Information 01/21/2022 20:11 EDT Oxygen Therapy Room air 01/20/2022 10:32 EDT Oxygen Therapy Room air . General: Nontoxic, no respiratory distre ss, comfortable HEENT: Normocephalic, atraumatic, lids a nd lashes normal, PERRL, EOMI, anicteric sclera, no conjunctival injection, moist oral mucosa Cards: Regular rate and rhythm, S1S2, no murmurs rubs or gallops Lungs: Good air entry, clear to ausculta tion bilaterally. No wheezes, rales, rhonchi or retractions Abdomen: Soft, nontender, nondistended, normal bowel sounds, no rebound or guarding, no peritoneal signs Musculoskeletal: Full range of motion of arms and legs, no tenderness to palpation. No clubbing, cyanosis, or edema Neurological: Appropriate for age, stren gth normal Psych: Alert and oriented Skin: No petechiae, no lesions, warm and dry Medical Decision Making 26-year-old male presents for evaluation of cough and chest discomfort after coughing when walking up a hill after eating dinner in the heat. He did have recent COVID infection. At time of my evaluation he no longer has a cough. His lung soun ds are clear. He is not hypoxic or tachycardic. EKG does not show any acute ischemic changes. Do not feel that imaging or further interventions are warranted at t his time. He will be treated symptomatic ally with Tessalon. He understands indications to return. Electrocardiogram: Time 01/21/2022 20:27:0 0, rate 74. Impression and Plan Diagnosis Cough on exercise ([id number] R05.8, Disch arge, Medical) Plan Condition: Stable. Disposition: Discharged: to home. Prescriptions: Launch prescriptions Pharmacy: Tessalon Perles 100 mg oral capsule (Pre scribe): 200 mg = 2 cap(s), Oral, TID, for 7 day(s), 42 cap(s), 0 Refill(s). Patient was given the following educatio nal materials: Cough, Adult, Neto-ip-Iyvd, Cough, Adult, Glig-rq-Cvyw. Follow up with: Jacquie oakley 1 to 2 days. Counseled: Patient. Functional Status 01/21/22 Recent Travel History No recent travel Family Member Travel History No recent travel COVID-19 Screening None Medications busPIRone 20 mg, Oral, TID, 0 Refill(s) Start Date: 01/20/22 Status: OrderedcloNIDine 0.1 mg oral tablet PRN PRN Anxiety, Q 4 hours, 0 Refill(s) Start Date: 01/21/22 Status: OrderedcloNIDine 0.1 mg oral tablet 0.1 mg = 1 tab(s), Oral, Daily, 0 Refill(s) Start Date: 01/20/22 Status: Orderedfamotidine 20 mg oral tablet 0 Refill(s) Start Date: 01/20/22 Status: OrderedFLUoxetine 60 mg oral tablet 60 mg = 1 tab(s), Oral, Daily, 0 Refill(s) Start Date: 01/20/22 Status: Orderedgabapentin 300 mg oral capsule 300 mg = 1 cap(s), TID, 0 Refill(s) Start Date: 01/20/22 Status: Orderedsenna 8.6 mg oral tablet 17.2 mg = 2 tab(s), Once a day (at bedtime), 0 Refill(s) Start Date: 01/20/22 Status: OrderedTessalon Perles 100 mg oral capsule 200 mg = 2 cap(s), Oral, TID, X 7 day(s), # 42 cap(s), 0 Refill(s), 01/28/22, [id number], 2 cap(s) Oral TID,x7 day(s), 175, cm, 01/21/22 20:20:00 EDT, Height/Length Dosing, 102, kg, 01/21/22 20:20:00 EDT, Weight Dosing Start Date: 01/21/22 Stop Date: 01/28/22 Status: OrderedtraZODone 100 mg oral tablet 100 mg = 1 tab(s), Once a day (at bedtime), 0 Refill(s) Start Date: 01/20/22 Status: Ordered Mental Status 01/21/22 Level of Consciousness Alert Problem List Condition Effective Dates Status Health Status Informant Anxiety(Confirmed) Active Multiple endocrine tumasia(Confirmed) Active PTSD (post-traumatic stress Active disorder)(Confirmed) Vital Signs Most recent to oldest [Reference Range]: 1 Temperature Temporal Artery [36.3-37.8 DegC] 36.5 DegC (01/21/22 8:11 PM) Peripheral Pulse Rate [60-100 bpm] 76 bpm (01/21/22 8:11 PM) Respiratory Rate [14-20 br/min] 14 br/min (01/21/22 8:11 PM) Blood Pressure [90-140/60-90 mmHg] 129/77 mmHg (01/21/22 8:11 PM) SpO2 [92-100 %] 99 % (01/21/22 8:11 PM) Height/Length Estimated 175.000 cm (01/21/22 8:11 PM) Height/Length Dosing 175.000 cm (01/21/22 8:20 PM) Weight Estimated 102.000 kg (01/21/22 8:11 PM) Weight Dosing 102.000 kg (01/21/22 8:20 PM) Social History Social History Type Response Tobacco Never tobacco user Tobacco U se:. Sex Hospital Discharge Instructions Patient Btoosvvag79/08/2022 20:30:46Cough, Adult, Gwhx-fa-SjoxXevrx, Adult A cough helps to clear your throat and lungs. A cough may be a sign of an illness or another medicalcondition. An acute cough may only last 2???3 weeks, while a chronic cough may last 8 or more weeks. Many things can cause a cough. They include: ??? Germs (viruses or bacteria) that attack the airway. ??? Breathing in things that bother (irritate) your lungs. ??? Allergies. ??? Asthma. ??? Mucus that runs down the back of your throat (postnasal drip). ??? Smoking. ??? Acid backing up from the stomach into the tube that moves food from the mouth to the stomach (gastroesophageal reflux). ??? Some medicines. ??? Lung problems. ??? Other medical conditions, such as heart failure or a blood clot in the lung (pulmonary embolism). Follow these instructions at home: Medicines ??? Take vbif-brt-zkfwjuv and prescription medicines only as told by your doctor. ??? Talk with your doctor before you take medicines that stop a cough (cough suppressants). Lifestyle ??? Do not smoke, and try not to be around smoke. Do not use any products that contain nicotine or tobacco, such as cigarettes, e-cigarettes, and chewing tobacco. If you need help quitting, ask your doctor. ??? Drink enough fluid to keep your pee (urine) pale yellow. ??? Avoid caffeine. ??? Do not drink alcohol if your doctor tells you not to drink. General instructions ??? Watch for any changes in your cough. Tell your doctor about them. ??? Always cover your mouth when you cough. ??? Stay away from things that make you cough, such as perfume, candles, campfire smoke, or cleaningproducts. ??? If the air is dry, use a cool mist vaporizer or humidifier in your home. ??? If your cough is worse at night, try using extra pillows to raise your head up higher while you sleep. ??? Rest as needed. ??? Keep all follow-up visits as told by your doctor. This is important. Contact a doctor if: ??? You have new symptoms. ??? You cough up pus. ??? Your cough does not get better after 2???3 weeks, or your cough gets worse. ??? Cough medicine does not help your cough and you are not sleeping well. ??? You have pain that gets worse or pain that is not helped with medicine. ??? You have a fever. ??? You are losing weight and you do not know why. ??? You have night sweats. Get help right away if: ??? You cough up blood. ??? You have trouble breathing. ??? Your heartbeat is very fast. These symptoms may be an emergency. Do not wait to see if the symptoms will go away. Get medical help right away. Call your local emergency services (911 in the [place] Do not drive yourself to the hospital. Summary ??? A cough helps to clear your throat and lungs. Many things can cause a cough. ??? Take dgpi-ude-trvxbty and prescription medicines only as told by your doctor. ??? Always cover your mouth when you cough. ??? Contact a doctor if you have new symptoms or you have a cough that does not get better or gets worse. This information is not intended to replace advice given to you by your health care provider. Make sure you discuss any questions you have with your health care provider. Document Revised: 07/21/2020 Document Reviewed: 06/21/2019 [employer] Patient Education ?? 2021 [employer]. Follow Up Care01/21/2022 20:09:56With:Jacquie Steward Address:Unknown When:1 to 2 days Care Team PersonnelName: Jacquie Steward
--- OUTSIDE RECORDS SUMMARY | 2022-03-07 09:03 | XMS_ITS | Continuity of Care Document ---
:[address] [facility] Address [address] [place] [address]- Care Team Providers Name Role Phone Jacquie Steward Primary Care Physician Unavailable Encounter BVT Date(s): 02/26/22 - 02/26/[address] [address]- [phone] Encounter Diagnosis Malignancy associated hypercalcemia (Discharge Diagnosis) - 02/26/22 Discharge Disposition: Home or Self Care Attending Physician: KIRT HITCHCOCK Admitting Physician: KIRT HITCHCOCK Allergies, Adverse Reactions, Alerts Substance Reaction Severity Status codeine1 Severe Active 1I pass out Assessment and Plan Extracted from: Title: General Medical Problem *ED Author: KIRT HITCHCOCK Date: 02/26/22 History of Present Illness Additional history: A 18-year-old male w ith a history of recent MENS 1 diagnosis approximately 1 year ago, presents to the emergency care center with a chief complaint of chest pain, shortness of breat h, palpitations, chills, sore throat, co ugh, that began x days ago. The patient has been suffering from an acute onset of chest pain, shortness of breath, palpitations that began today while lying in b ed. 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 He states that the work-up is continuing. He has not experienced any injury o r illness recently. He has noted some re cent chills, cough beginning over the last couple of days. More recently, the patient developed chest pain and shortness of breath that he describes was crushing. He additionally had some palpitations. He complains of some abdominal pains that are generalized. He has experienced nausea but not vomiting. He is without fever here. The patient was given 325 of aspi rin in route by prehospital providers. Skyler lara arrives with some anxiety. His states that his father passed as a result of the same issue in his 50s. He has not noted any unilateral leg swelling, hemoptysis, syncope. He denies recent long car ride s, plane trips. He denies history of thrombosis. He has no history of coronary artery disease. He denies cocaine use.. Review of Systems Constitutional symptoms: Negative except as documented in HPI. Skin symptoms: Negative except as docume nted in HPI. Eye symptoms: Negative except as documen kayleen in HPI. ENMT symptoms: Negative except as docume nted in HPI. Respiratory symptoms: Negative except as documented in HPI. Cardiovascular symptoms: Negative except as documented in HPI. Gastrointestinal symptoms: Negative exce pt as documented in HPI. Genitourinary symptoms: Negative except as documented in HPI. Musculoskeletal symptoms: Negative excep t as documented in HPI. Neurologic symptoms: Negative except as documented in HPI. Psychiatric symptoms: Negative except as documented in HPI. Endocrine symptoms: Negative except as d ocumented in HPI. Hematologic/Lymphatic symptoms: Negative except as documented in HPI. Allergy/immunologic symptoms: Negative e xcept as documented in HPI. Additional review of systems informatio n: All other systems reviewed and otherwise negative. Health Status Allergies: Allergic Reactions (Selected) Severe Codeine- No reactions were documented.. Past Medical/ Family/ Social History Medical history: No active or resolved past medical histo ry items have been selected or recorded.. Surgical history: No active procedure history items have b een selected or recorded.. Family history: No family history items have been select ed or recorded.. Social history: Social & Psychosocial History Social History Alcohol Never Never Substance Abuse Past, Cocaine Past, Cocaine Tobacco Never tobacco user Tobacco Use:. Never tobacco user Tobacco Use:. Never tobacco user Tobacco Use:. Electronic Cigarette/Vaping Electronic Cigarette Use: Never. Electronic Cigarette Use: Never. Psychosocial History No active psychosocial history has been recorded . Problem list: Active Problems (3) Anxiety Multiple endocrine tumasia PTSD (post-traumatic stress disorder) . Physical Examination Vital Signs Vital Signs 02/26/2022 12:45 EDT Peripheral Pulse Rate 109 bpm HI Heart Rate Monitored 104 bpm HI Respiratory Rate 19 br/min Systolic Blood Pressure 139 mmHg Diastolic Blood Pressure 87 mmHg Mean Arterial Pressure, Cuff 104 mmHg HI Mean Arterial Pressure Cufff-Monitor 104 mmHg SpO2 99 % 02/26/2022 12:30 EDT Peripheral Pulse Rate 95 bpm Heart Rate Monitored 90 bpm Respiratory Rate 11 br/min LOW Systolic Blood Pressure 137 mmHg Diastolic Blood Pressure 84 mmHg Mean Arterial Pressure, Cuff 102 mmHg HI Mean Arterial Pressure Cufff-Monitor 99 mmHg SpO2 100 % 02/26/2022 12:21 EDT Temperature Temporal Artery 36.5 DegC Peripheral Pulse Rate 101 bpm HI Respiratory Rate 26 br/min HI Systolic Blood Pressure 158 mmHg HI Diastolic Blood Pressure 101 mmHg HI SpO2 100 % . Measurements 02/26/2022 12:23 EDT Weight Dosing 102.000 kg 02/26/2022 12:23 EDT Height/Length Dosing 175.000 cm 02/26/2022 12:21 EDT Height/Length Estimated 175.000 cm Weight Estimated 102.000 kg . Basic Oxygen Information 02/26/2022 12:21 EDT Oxygen Therapy Room air . General: Alert, no acute distress. Skin: Warm, dry, pink, intact. Head: Normocephalic, atraumatic. Neck: Supple, trachea midline. Eye: Extraocular movements are intact, n ormal conjunctiva. Ears, nose, mouth and throat: Oral mucos a moist. Cardiovascular: Normal peripheral perfus ion. Respiratory: Respirations are non-labore d, Symmetrical chest wall expansion. Gastrointestinal: Soft abdomen with some generalized tenderness, nothing specific. No masses. Normal bowel sounds.. Musculoskeletal: Normal ROM, normal stre ngth, no tenderness, no swelling, no deformity. Neurological: Alert and oriented to pers on, place, time, and situation, No focal neurological deficit observed, normal sensory observed, normal motor observed, normal speech observed, normal coordination observed. Psychiatric: Cooperative, appropriate mo od & affect, normal judgment, non-suicidal. Medical Decision Making Rationale: Anxious appearing 26-year-old male presenting with crushing chest pain associated with shortness of breath that began this morning while lying in bed. I have never felt anything like this be fore, according to the patient. 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 His father had this issue as well and perished in his 50s. The patient states that his been fairly uneventful and he is un dergoing work-up and he may have some different tumors, 1 possibly in his brain however he is unsure if they are benign at this time. The patient has experienced some nausea today but no vomiting. His c hest pain continues on arrival however the patient is not experiencing any concerning EKG changes that would suggest ischemia such as ST elevation or depression. The patient's EKG is nondiagnostic for S DINO on arrival. The patient states that he has experienc ed cough and chills recently, he is afebrile here and is not experiencing acute hypoxemic respiratory failure. His lungs are clear and he is experienci ng normal sinus rhythm not murmurs, gallops or rubs. Patient has a supple neck. He is alert a nd oriented. Patient's calcium has returned elevated. This is likely responsible for his abdominal discomfort, perhaps his chest pain, body aches however his level has been elevated recently without symptoms. Perhaps he is volumn depleted.. Results review: Lab results : Lab View 02/26/2022 15:57 EDT Troponin-T <0.010 ng/mL 02/26/2022 13:01 EDT SARS-CoV-2 (COVID-19) PCR ([facility]) Negative Employed in healthcare? No Symptomatic as defined by CDC? No Hospitalized due to COVID-19? No In ICU? No Group care resident? No status? Not 02/26/2022 12:54 EDT TSH 1.520 uIU/mL 02/26/2022 12:37 EDT WBC 10.5 x10(3)/uL HI RBC 4.35 x10(6)/uL LOW Hgb 13.4 gm/dL LOW Hct 38.0 % LOW MCV 87.4 fL MCH 30.8 pg MCHC 35.3 gm/dL RDW-CV 12.2 % Platelet 289 x10(3)/uL MPV 11.0 fL Neutro Auto 63.0 % Lymph Auto 25.7 % Cidra Auto 8.9 % Eos Auto 1.7 % Basophil Auto 0.5 % NRBC Auto Pct 0.00 % Neutro Absolute 6.61 x10(3)/uL HI Lymph Absolute 2.69 x10(3)/uL Cidra Absolute 0.93 x10(3)/uL HI Eos Absolute 0.18 x10(3)/uL NRBC Absolute 0.00 x10(3)/uL Basophil Absolute 0.05 x10(3)/uL Immature Gran % 0.20 % Immature Gran Absolute 0.02 x10(3)/uL NA Sodium Lvl 135 mmol/L LOW Potassium Lvl 3.8 mmol/L Chloride 102 mmol/L CO2 24 mmol/L AGAP 12.8 mmol/L BUN 10 mg/dL Creatinine 0.87 mg/dL GFR NonAfrican Lebanese 104 mL/min/1.73 m2 Glucose Lvl 114 mg/dL HI Calcium Lvl 11.1 mg/dL HI Lipase Lvl 15 IntUnit/L Osmolality 270.0 mOsm/kg Troponin-T <0.010 ng/mL . Radiology results: X-ray (ST) X-Ray: ?? XR Chest 1 View Portable ?? 02/26/22 12:56:08 EXAMINATION: XR Chest 1 View Portable CLINICAL HISTORY: Chest pain Technique: AP portable Upright chest rad iograph Comparison:None Findings: The heart and mediastinum are normal. Lungs are clear. No pleural effusions, pneumothorax or cardiac failu re. Interpretation: Normal study Thank you for letting us participate in the care of this patient. If you are a health care provider and have any questi ons regarding this report, please contact the number below. For patients w ho have questions please contact the health morning caregiver that requested your imaging first. Electronically signed by: Monica Morocho, [facility] ([phone]), at 02/26/2022 12:56 PM ?? Signed By: WILIAN DOS SANTOS Reexamination/ Reevaluation Notes: Patient chest pain free, feeling better. Plan DC. D/w MD Cobb.. Impression and Plan Diagnosis Malignancy associated hypercalcemia (ICD 10-CM E83.52, Discharge, Medical) Plan Condition: Improved. Disposition: Medically cleared, Discharg ed: time 02/26/2022 16:40:00. Patient was given the following educatio nal materials: Hypercalcemia. Limitations: Limited activity. Follow up with: ; PCP Referral Within 1 to 2 days, PCP Referral Within 1 to 2 days. Counseled: Patient, Regarding diagnosis, Regarding diagnostic results, Regarding treatment plan, Regarding prescription, Patient indicated understanding of instructions. Functional Status 02/26/22 Recent Travel History No recent travel Family [...] bedtime), 0 Refill(s) Start Date: 01/20/22 Status: OrderedtraZODone 100 mg oral tablet 100 mg = 1 tab(s), Once a day (at bedtime), 0 Refill(s) Start Date: 01/20/22 Status: Ordered Mental Status 02/26/22 Level of Consciousness Alert Problem List Condition Effective Dates Status Health Status Informant Anxiety(Confirmed) Active Multiple endocrine tumasia(Confirmed) Active PTSD (post-traumatic stress Active disorder)(Confirmed) Results Laboratory List Name Date Troponin-T 02/26/22 SARS-CoV-2 (COVID-19) PCR ([facility]) 02/26/22 TSH [place] 02/26/22 Automated Differential Standard 02/26/22 Basic Metabolic Panel Standard (BMP Standard) 02/26/22 CBC w/Diff Standard 02/26/22 Lipase Level 02/26/22 Troponin-T 02/26/22 Most recent to oldest [Reference Range]: 1 2 NRBC Auto Pct [0.00-0.20 %] 0.00 % (02/26/22 12:37 PM) Creatinine [0.70-1.20 mg/dL] 0.87 mg/dL (02/26/22 12:37 PM) AGAP [10.0-18.0 mmol/L] 12.8 mmol/L (02/26/22 12:37 PM) Glucose Lvl [70-100 mg/dL] 114 mg/dL *HI* (02/26/22:37 PM) Hct [40.1-51.0 %] 38.0 % *LOW* (02/26/22:37 PM) Hgb [13.7-17.5 gm/dL] 13.4 gm/dL *LOW* (02/26/22:37 PM) Lipase Lvl [13-60 IntUnit/L] 15 IntUnit/L (02/26/22:37 PM) Lymph Auto [15.0-45.0 %] 25.7 % (02/26/22:37 PM) MCH [25.6-32.2 pg] 30.8 pg (02/26/22:37 PM) MCHC [32.3-36.5 gm/dL] 35.3 gm/dL (02/26/22:37 PM) MCV [79.0-92.2 fL] 87.4 fL (02/26/22:37 PM) Cidra Auto [4.0-14.0 %] 8.9 % (02/26/22:37 PM) MPV [9.4-12.4 fL] 11.0 fL (02/26/22:37 PM) Neutro Auto [50.0-75.0 %] 63.0 % (02/26/22:37 PM) Osmolality [268.0-291.0 mOsm/kg] 270.0 mOsm/kg (02/26/22:37 PM) Platelet [150-400 x10(3)/uL] 289 x10(3)/uL (02/26/22 12:37 PM) RBC [4.63-6.08 x10(6)/uL] 4.35 x10(6)/uL *LOW* (02/26/22:37 PM) Sodium Lvl [136-145 mmol/L] 135 mmol/L *LOW* (02/26/22 12:37 PM) TSH [0.270-4.200 uIU/mL] 1.520 uIU/mL (02/26/22 12:54 PM) Basophil Auto [0.0-2.0 %] 0.5 % (9/13/22 12:37 PM) CO2 [22-29 mmol/L] 24 mmol/L (02/26/22 12:37 PM) Eos Auto [0.0-8.0 %] 1.7 % (02/26/22 12:37 PM) WBC [4.2-9.1 x10(3)/uL] 10.5 x10(3)/uL *HI* (02/26/22 12:37 PM) BUN [6-23 mg/dL] 10 mg/dL (02/26/22 12:37 PM) Calcium Lvl [8.6-10.2 mg/dL] 11.1 mg/dL *HI* (02/26/22 12:37 PM) Chloride [98-107 mmol/L] 102 mmol/L (02/26/22 12:37 PM) Potassium Lvl [3.5-5.1 mmol/L] 3.8 mmol/L (02/26/22 12:37 PM) Troponin-T [0.000-0.029 ng/mL] <0.010 ng/mL <0.010 ng /mL (02/26/22 3:57 PM) (02/26/22 12:37 PM) Lymph Absolute [1.30-3.60 x10(3)/uL] 2.69 x10(3)/uL (02/26/22 12:37 PM) Cidra Absolute [0.30-0.80 x10(3)/uL] 0.93 x10(3)/uL *HI* (02/26/22 12:37 PM) Eos Absolute [0.04-0.36 x10(3)/uL] 0.18 x10(3)/uL (02/26/22 12:37 PM) NRBC Absolute [0.00-0.01 x10(3)/uL] 0.00 x10(3)/uL (02/26/22 12:37 PM) Neutro Absolute [1.78-5.38 x10(3)/uL] 6.61 x10(3)/uL *HI* (02/26/22 12:37 PM) RDW-CV [11.6-14.4 %] 12.2 % (02/26/22 12:37 PM) GFR NonAfrican Lebanese [>=60 mL/min/1.73 m2] 104 mL/min/1.7 3 m2 (02/26/22 12:37 PM) SARS-CoV-2 (COVID-19) PCR ([facility]) Negative [Negative] (02/26/22 1:01 PM) Immature Gran % [0.00-2.30 %] 0.20 % (02/26/22 12:37 PM) Immature Gran Absolute 0.02 x10(3)/uL *NA* (02/26/22 12:37 PM) Basophil Absolute [0.00-0.10 x10(3)/uL] 0.05 x10(3)/uL (02/26/22 12:37 PM) Employed in healthcare? No *NA* (02/26/22 1:01 PM) Symptomatic as defined by CDC? No *NA* (02/26/22 1:01 PM) Hospitalized due to COVID-19? No *NA* (02/26/22 1:01 PM) In ICU? No *NA* (02/26/22 1:01 PM) Group care resident? No *NA* (02/26/22 1:01 PM) status? Not *NA* (02/26/22 1:01 PM) Radiology Reports Exam Date Time Procedure Performing Provider Status 02/26/22 12:36 PM XR Chest 1 View Portable Milly Nance; Auth (Verified) Notes:(XR Chest 1 View Portable) Reason For Exam: Chest painXR Chest 1 View Portable EXAMINATION: XR Chest 1 View Portable CLINICAL HISTORY: Chest pain Technique: AP portable Upright chest radiograph Comparison:None Findings: The heart and mediastinum are normal. Lungs are clear. No pleural effusions, pneumothorax or cardiac failure. Interpretation: Normal study Thank you for letting us participate in the care of this patient. If you are a health care provider and have any questions regarding this report, please contact the number below. For patients who have questions please contact the health morning caregiver that requested your imaging first. Electronically signed by: Wilian Dos Santos MD, [facility] ([phone]), at 02/26/2022 12:56 PM Final Dictated: 02/26/2022 12:56 pm WILIAN DOS SANTOS Signed (Electronic Signature): 02/26/2022 12:56 pm Signed by: WILIAN DOS SANTOS Vital Signs Most recent to oldest 1 2 3 [Reference Range]: Temperature Temporal Artery 36.5 DegC [36.3-37.8 DegC] (02/26/22 12:21 PM) Peripheral Pulse Rate [60-100 59 bpm 57 bpm 80 bpm bpm] *LOW* *LOW* (02/26/22 4:15 PM ) (02/26/22 4:45 PM) (02/26/22 4:30 PM) Heart Rate Monitored [60-100 63 bpm 57 bpm 73 bpm bpm] (02/26/22 4:45 PM) *LOW* (02/26/22 4:15 PM) (02/26/22 4:30 PM) Respiratory Rate [14-20 16 br/min 12 br/min 15 br/mi n br/min] (02/26/22 4:45 PM) *LOW* (02/26/22 4:15 PM) (02/26/22 4:30 PM) Blood Pressure [90-140/60-90 107/66 mmHg 110/64 mmHg 111 /63 mmHg mmHg] (02/26/22 4:45 PM) (02/26/22 4:30 PM) (02/26/22 4:1 5 PM) Mean Arterial Pressure, Cuff 80 mmHg 79 mmHg 79 mmHg [65-100 mmHg] (02/26/22 4:45 PM) (02/26/22 4:30 PM) (02/26/22 4:1 5 PM) Mean Arterial Pressure 78 mmHg 76 mmHg 75 mmHg Cuff-Monitor (02/26/22 4:45 PM) (02/26/22 4:30 PM) (02/26/22 4:1 5 PM) SpO2 [92-100 %] 96 % 94 % 94 % (02/26/22 4:45 PM) (02/26/22 4:30 PM) (02/26/22 4:1 5 PM) Height/Length Estimated 175.000 cm (02/26/22 12:21 PM) Height/Length Dosing 175.000 cm (02/26/22 12:23 PM) Weight Estimated 102.000 kg (02/26/22 12:21 PM) Weight Dosing 102.000 kg (02/26/22 12:23 PM) Social History Social History Type Response Tobacco Never tobacco user Tobacco U se:. Sex Hospital Discharge Instructions Patient Tcpvdnfrr54/13/2022 16:52:[id number]. Drink plenty fluids, get plenty sleep. Avoid calcium supplementation. 2. If you do not have a primary care doctor call the PCP referral line to establish a primary care doctor in our system. If you have a primary care doctor, call them to arrange follow-up. 3. Take your medications as directed. 4 . If you develop new or worsening symptoms including but not limited to fainting, severe chest pain associated with shortness of breath, coughing up blood or other concerning abnormality, return for reevaluation. Hypercalcemia Hypercalcemia is when the level of calcium in a person's blood is above normal. The body needs calcium to make bones and keep them strong. Calcium also helps the muscles, nerves, brain, and heart work the way they should. Most of the calcium in the body is in the bones. There is also some calcium in the blood. Hypercalcemia can happen when calcium comes out of the bones, or when the kidneys are not able to remove calcium from the blood. Hypercalcemia can be mild or severe. What are the causes? There are many possible causes of hypercalcemia. Common causes of this condition include: ??? Hyperparathyroidism. This is a condition in which the body produces too much parathyroid hormone. There are four parathyroid glands in your neck. These glands produce a chemical messenger (hormone)that helps the body absorb calcium from foods and helps your bones release calcium. ??? Certain kinds of cancer. Less common causes of hypercalcemia include: ??? Getting too much calcium or vitamin D from your diet. ??? Kidney failure. ??? Hyperthyroidism. ??? Severe dehydration. ??? Being on bed rest or being inactive for a long time. ??? Certain medicines. ??? Infections. What increases the risk? You are more likely to develop this condition if you: ??? Are female. ??? Are 60 years of age or older. ??? Have a family history of hypercalcemia. What are the signs or symptoms? Mild hypercalcemia that starts slowly may not cause symptoms. Severe, sudden hypercalcemia is more likely to cause symptoms, such as: ??? Being more thirsty than usual. ??? Needing to urinate more often than usual. ??? Abdominal pain. ??? Nausea and vomiting. ??? Constipation. ??? Muscle pain, twitching, or weakness. ??? Feeling very tired. How is this diagnosed? Hypercalcemia is usually diagnosed with a blood test. You may also have tests to help determine whatis causing this condition, such as imaging tests and more blood tests. How is this treated? Treatment for hypercalcemia depends on the cause. Treatment may include: ??? Receiving fluids through an IV. ??? Medicines that: ??? Keep calcium levels steady after receiving fluids (loop diuretics). ??? Keep calcium in your bones (bisphosphonates). ??? Lower the calcium level in your blood. ??? Surgery to remove overactive parathyroid glands. ??? A procedure that filters your blood to correct calcium levels (hemodialysis). Follow these instructions at home: ??? Take wptk-aym-xyhnvkq and prescription medicines only as told by your health care provider. ??? Follow instructions from your health care provider about eating or drinking restrictions. ??? Drink enough fluid to keep your urine pale yellow. ??? Stay active. Weight-bearing exercise helps to keep calcium in your bones. Follow instructions from your health care provider about what type and level of exercise is safe for you. ??? Keep all follow-up visits as told by your health care provider. This is important. Contact a health care provider if you have: ??? A fever. ??? A heartbeat that is irregular or very fast. ??? Changes in mood, memory, or personality. Get help right away if you: ??? Have severe abdominal pain. ??? Have chest pain. ??? Have trouble breathing. ??? Become very confused and sleepy. ??? Lose consciousness. Summary ??? Hypercalcemia is when the level of calcium in a person's blood is above normal. The body needs calcium to make bones and keep them strong. Calcium also helps the muscles, nerves, brain, and heart work the way they should. ??? There are many possible causes of hypercalcemia, and treatment depends on the cause. ??? Take zutd-roy-hgrqpgy and prescription medicines only as told by your health care provider. ??? Follow instructions from your health care provider about eating or drinking restrictions. This information is not intended to replace advice given to you by your health care provider. Make sure you discuss any questions you have with your health care provider. Document Revised: 06/29/2019 Document Reviewed: 03/08/2019 [email or web address] Patient Education ?? 2021 [employer]. Follow Up Care02/26/2022 12:17:21With:PCP Referral Address: N/A Business (1) When:1 to 2 days Portable XR Chest Views WILIAN DOS SANTOS: VERIFY, VERIFY, PERFORM Event Display: Report Authored Date: EXAMINATION: XR Chest 1 View Portable CLINICAL HISTORY: Chest pain Technique: AP portable Upright chest radiograph Comparison:None Findings: The heart and mediastinum are normal. Lungs are clear. No pleural effusions, pneumothorax or cardiac failure. Interpretation: Normal study Thank you for letting us participate in the care of this patient. If you are a health care provider and have any questions regarding this report, please contact the number below. For patients who have questions please contact the health morning caregiver that requested your imaging first. Electronically signed by: Wilian Dos Santos MD, [facility] ([phone]), at 02/26/2022 12:56 PM Final Dictated: 02/26/2022 12:56 pm WILIAN DOS SANTOS Signed (Electronic Signature): 02/26/2022 12:56 pm Signed by: WILIAN DOS SANTOS Patient Care team information PersonnelName: Jacquie Steward
--- OUTSIDE RECORDS SUMMARY | 2022-03-07 09:03 | XMS_ITS | Clinical Summary ---
:1995 Author Organization [place] [address] Care Team Providers Name Role Phone None Primary Care Provider Unavailable Allergies Active Allergy Reactions Severity Noted Date Comments Codeine 02/21/2022 Tightening of c hest, wheezing Medications Medication Sig Dispensed Refills Start Date End Date Status busPIRone (Buspar) Take 2 tablets by 0 02/08/2022 Active 10 mg Tablet mouth 3 times daily. cloNIDine 0.1 mg. 0 02/08/2022 Active (Catapres) 0.1 mg Tablet docusate sodium 0 02/07/2022 Act alvarez (Colace) 100 mg Capsule doxepin (Silenor) 3 0 10/25/2021 Active mg Tablet escitalopram Take 20 mg by mouth 0 10/01/2021 Active (Lexapro) 20 mg daily. Tablet famotidine (Pepcid) TAKE ONE TABLET BY 0 02/11/2022 02/12/2023 Active 20 mg Tablet MOUTH TWICE A DAY FOR STOMACH ACID FLUoxetine (PROzac) Take 3 capsules by 0 02/08/2022 Active 20 mg Capsule mouth daily. gabapentin 0 02/07/2022 Active (NEURONTIN) 600 mg Tablet lidocaine APPLY 1 PATCH 0 02/11/2022 02/12/2023 Acti ve (Lidoderm) 5% TOPICALLY EVERY DAY Adhesive Patch, FOR PAIN, PRESS Medicated PATCH ON SKIN FOR 10-15 SECONDS TO ACTIVATE ADHESIVE, APPLY ONLY ONCE FOR UP TO 12 HOURS WITHIN A 24 HOUR PERIOD methadone 105 mg Daily. 0 Active (Dolophine) 10 mg/mL Concentrate omeprazole Take 20 mg by mouth 0 09/23/2021 Active (PriLOSEC) 20 mg daily. Capsule, Delayed Release(E.C.) QUEtiapine 50 mg. 0 02/11/2022 Active (SEROquel) 100 mg Tablet senna-docusate TAKE ONE TABLET BY 0 02/11/202202/12 Active (Pericolace) 8.6-50 MOUTH TWICE A DAY mg Tablet FOR CONSTIPATION traZODone (Desyrel) Take 100 mg by 0 01/17/2022 Active 100 mg Tablet mouth nightly. Encounters Date Type Specialty Care Team Description 02/26/2022 Interpretation Only Kirt Tyson PA 02/21/2022 Office Visit General Surgery Siomara Gorman MEN 1 (la nena Chin MD endocrine neoplasia) Joan Covington, YASSINE 02/09/2022 Hospital Encounter Radiology Santiago Carroll DO Low er extremity pain, right 02/09/2022 Interpretation Only Santiago Carroll DO 12/10/2021 External Results General Surgery 12/05/2021 Transcribe Orders Primary Care Ashley Juan, Hyper calcemia; [employer] PROF[employer] Parathyroid dis ease from Last 3 Months Social History Tobacco Use Types Packs/Day Years Used Date Never Smoker Sex Assigned at Date Recorded Not on file Last Filed Vital Signs Vital Sign Reading Time Taken Comments Blood Pressure 109/53 02/21/2022 2:08 PM EDT Pulse 70 02/21/2022 2:08 PM EDT Temperature - - Respiratory Rate 16 02/21/2022 2:08 PM EDT Oxygen Saturation 98% 02/21/2022 2:08 PM EDT Inhaled Oxygen Concentration - - Weight 96 kg (211 lb 9.6 oz) 02/21/2022 2:08 PM EDT Height 172.5 cm (5' 7.91) 02/21/2022 2:08 PM EDT Body Mass Index 32.26 02/21/2022 2:08 PM EDT Plan of Treatment Upcoming Encounters Date Type Specialty Care Team Description 03/12/2022 Appointment Radiology Kim Gorman MD [facility] GENERAL SURGERY [place], [place] [address] (Irving reeder) 03/12/2022 Hospital Encounter Radiology Elida Gorman MD [facility] SURG[facility] [place], [place] [address] (Irving reeder) Health Maintenance Due Date Last Done Comments Covid-19 Vaccine (#1) 1998 HIV screen 10/08/2011 Hepatitis C Screening 10/08/2011 Lipid Screening 10/08/2011 Tdap adult 2012 Tetanus vaccine 2012 Influenza (Flu) vaccine (1 of 1 - Influenza standard 02/14/2022 series) Procedures Procedure Name Priority Date/Time Associated Comments Diagnosis XR CHEST ONE VIEW STAT 02/26/2022 12:36 Result s for this PM EDT procedure are i n the results section. GASTRIN Routine 02/21/2022 3:36 PM Results f or this EDT procedure are i n the results section. HC PARATHYROID Routine 02/21/2022 3:36 PM MEN 1 (multiple Resu lts for this HORMONE(PTH INTACT EDT endocrine procedure are in neoplasia) the results section. BASIC METABOLIC PANEL Routine 02/21/2022 3:36 PM MEN 1 (multip le Results for this (NON-FASTING) EDT endocrine procedure are in neoplasia) the results section. HC PROLACTIN ASSAY, Routine 02/21/2022 3:36 PM MEN 1 (multiple Results for this SERUM EDT endocrine procedure are i n neoplasia) the results section. HC VENIPUNCTURE Routine 02/21/2022 3:36 PM MEN 1 (multiple Res ults for this EDT endocrine procedure are i n neoplasia) the results section. VASCULAR IMAGING Routine 02/09/2022 3:05 PM Lower extremity Re sults for this VENOUS LOWER EDT pain, right procedure are i n EXTREMITY UNILATERAL the res ults section. VASCULAR STUDY SCAN 02/09/2022 12:00 Resu lts for this AM EDT procedure are i n the results section. EKG 12-LEAD Routine 02/04/2022 10:43 Results for this AM EDT procedure are i n the results section. from Last 3 Months Results XR Chest One View (02/26/2022 12:36 PM EDT) [facility] Method Time Signature PT CLASS E DH RAD ADMITDTTM [id number] RAD PT RAD MD INFO [id number]^CARLOS RAD LS^KIRT^O EXAM DESC XCXR1^XR Chest 1 RAD View Portable^RIS Anatomical Region Laterality Modality Chest N/A Radiographic Imaging Specimen (Source) Anatomical Collection Method Collection Time Re ceived Time Location / / Volume Laterality 02/26/2022 12:36 PM EDT Narrative 02/26/2022 12:56 PM EDT EXAMINATION: XR Chest 1 View Portable CLINICAL HISTORY: Chest pain Technique: AP portable Upright chest rad iograph Comparison:None Findings: The heart and mediastinum are normal. Lungs are clear. No pleural effusions, pneumothorax or cardiac failu re. Interpretation: Normal study Thank you for letting us participate in the care of this patient. ??If you are a health care provider and have any questi ons regarding this report, please contact the number below. ??For patients who have questions please contact the health certified social workers in health care that requested your imaging first. ? Procedure Note Stella Dos Santos MD - 02/26/2022Formattin g of this note might be different from the original. EXAMINATION: XR Chest 1 View Portable CLINICAL [...] ho have questions please contact the health certified social workers in health care that requested your imaging first. Kirt MORALES IMG DX ORDERABLES (ABNORMAL) PTH (02/21/2022 3:36 PM EDT) athologist Signature PTH 152 (H) 15 - 65 [facility] pg/mL [facility] Specimen Anatomical Collection Method Collection Time Receive d Time (Source) Location / / Volume Laterality Blood 02/21/2022 3:36 PM 3:48 EDT PM EDT Resulting Agency Comment Spec In Lab Siomara Gorman MD CHEMISTRY ORDERABLES Performing Organization Address City/State/[place] [address] Chromogranin A (02/21/2022 3:36 PM EDT) athologist Signature Chromogranin A 81 <93 ng/mL [facility] Comment: ADDITIONAL INFORMATIO N This test was developed and its performa nce characteristics determined by [facility] in a manner co nsistent with CLIA requirements. This test has not been zander ared or approved by the U.S. Food and Drug Administration. In some immunoassays, the presence of un usually high concentrations of analyte may result in a high-dose hook effect. This may result in a lowe r or even normal measured analyte concentration. If the r eported result is inconsistent with the clinical presen tation, the laboratory should be alerted for trouble shooting. For diagnostic purposes, these immunoassay r esults should always be assessed in conjunction with t he patients medical history, clinical examination and other findings. The testing method is a homogeneous time -resolved immunofluorescent assay manufactured by [employer] and performed on the [employer] Kryptor Comp act Plus. Values obtained with different assay met hods or kits may be different and cannot be used interchange ably. Test results cannot be interpreted as ab solute evidence for the presence or absence of malignant dis ease. Test Performed by: [facility] [address] [id number] Compensation Expert: Bo Valladares M.D. Ph. D.; CLIA# [id number] Specimen Anatomical Collection Method Collection Time Receive d Time (Source) Location / / Volume Laterality Blood 02/21/2022 3:36 PM 2 4:16 EDT PM EDT Resulting Agency Comment Spec In Lab Siomara Gorman MD CHEMISTRY ORDERABLES Performing Organization Address City/[facility]/ZIP Code Phon e Number [address] (ABNORMAL) Prolactin (02/21/2022 3:36 PM EDT) P athologist Signature Prolactin 17.8 (H) 4.0 - 15.2 [facility] ng/mL [facility] Specimen Anatomical Collection Method Collection Time Receive d Time (Source) Location / / Volume Laterality Blood 02/21/2022 3:36 PM 2 3:48 EDT PM EDT Resulting Agency Comment Spec In Lab Siomara Gorman MD CHEMISTRY ORDERABLES Performing Organization Address City/[facility]/ZIP [facility] [place] [address] (ABNORMAL) Gastrin (02/21/2022 3:36 PM EDT) P athologist Signature Gastrin 146 (H) pg/mL [facility] Comment: REFERENCE VALUE------ <100 Reference ranges valid for >= 8 hour fast. Test Performed by: [facility] [address] [place] [address] 43 Compensation Expert: Bo Valladares M.D. Ph. D.; CLIA# [id number] Specimen Anatomical Collection Method Collection Time Receive d Time (Source) Location / / Volume Laterality Blood Venous Draw / 02/21/2022 3:36 PM 02/23/20 22 4:21 Unknown EDT PM EDT Resulting Agency Comment Spec In Lab Siomara Gorman MD CHEMISTRY ORDERABLES Performing Organization Address City/[facility]/[place] [address] (ABNORMAL) Basic Metabolic Panel (non-fasting) (02/21/2022 3:36 PM EDT) P athologist Signature Glucose Lvl 103 65 - 199 [facility] mg/dL [facility] Comment: Diabetes: >=200 mg/dL plus symp toms BUN 11 10 - 20 mg/dL [facility] Creatinine 0.96 0.80 - 1.50 mg/dL [facility] Sodium 136 135 - 145 mmol/L [facility] Potassium 4.1 3.5 - 5.0 mmol/L [facility] Comment: Please note: ??Patients with WBC >100,00 0 may have falsely elevated Potassium levels. ??For accurate Potassium quantif ication in these patients send serum separator tube (gold top) for subsequent determinations. ??Contact the Clinical Chemistry Laboratory if there are any qu estions. Chloride 101 98 - 107 mmol/L [facility] CO2 29 22 - 31 mmol/L [facility] Anion Gap 6 5 - 15 mmol/L [facility] Calcium 11.3 (H) 8.5 - 10.5 mg/dL [facility] Estimated GFR 110 >=60 mL/min/1.73 m?? [facility] Comment: This patient's estimated GFR was calcula kayleen using the 2020 CKD-EPI equation. The estimated GFR can vary from the ezequiel ured GFR by up to 30% in the absence of rapidly changing kidney function. Assess ment of the estimated GFR is not appropriate when creatinine concentratio ns are rapidly changing. For clinical situations in which a more precise estim ate of GFR is necessary, consider alternative methods of GFR estimation ashton ch as a 24-hour urine creatinine clearance. Assignment of CKD stage 1-5 for patients with an eGFR near the transition point between stages may be based on clinical assessment of muscle mass and symptoms in addition to eGFR. Specimen Anatomical Collection Method Collection Time Receive d Time (Source) Location / / Volume Laterality Blood 02/21/2022 3:36 PM 2 3:48 EDT PM EDT Resulting Agency Comment Spec In Lab Siomara Gorman MD CHEMISTRY ORDERABLES Performing Organization Address City/State/ZIP Code Phon e Number [place] [phone] Vascular Imaging Venous Lower Extremity Unilateral (02/09/2022 3:05 PM EDT) Anatomical Region Laterality Modality VASC Specimen (Source) Anatomical Location Collection Method / Collectio n Time Received Time / Laterality Volume Impressions 02/09/2022 3:15 PM EDT Negative study. No evidence for right lower extremity deep vein thrombosis. Thank you for letting us participate in the care of this patient. ??If you are a health care provider and have any questi ons regarding this report, please contact the number below. ??For patients who have questions please contact the health certified social workers in health care that requested your imaging first. ? Electronically signed by: MIKE WHIETHEAD MD, [facility] ([phone]), at 02/09/2022 3:15 PM Narrative 02/09/2022 3:15 PM EDT EXAMINATION: VASCULAR IMAGING VENOUS LOWER EXTREMITY UNILATERAL CLINICAL HISTORY: rle pain TECHNIQUE: A duplex doppler study was performed thr ough the right lower extremity. FINDINGS: The deep veins throughout the right lowe r extremity are clear and compressible. Flow is spontaneous, phasic, and augment able. I see no evidence for deep vein thrombosis. The right greater saphenous and left common femoral veins are clear. Procedure Note Mike Whitehead MD - 02/09/2022Formatti ng of this note might be different from the original. EXAMINATION: VASCULAR IMAGING VENOUS LOW ER EXTREMITY UNILATERAL CLINICAL HISTORY: rle pain TECHNIQUE: A duplex doppler study was performed thr ough the right lower extremity. FINDINGS: The deep veins throughout the right lowe r extremity are clear and compressible. Flow is spontaneous, phasic, and augment able. I see no evidence for deep vein thrombosis. The right greater saphenous and left common femoral veins are clear. IMPRESSION Negative study. No evidence for right lo wer extremity deep vein thrombosis. Thank you for letting us participate in the care of this patient. If you are a health care provider and have any questi ons regarding this report, please contact the number below. For patients w ho have questions please contact the health certified social workers in health care that requested your imaging first. Electronically signed by: MIKE WHITEHEAD MD, [facility] ([phone]), at 02/09/2022 3:15 PM Santiago Carroll DO IMG AFFIL VASCULAR ORDERABLE S SCAN DOC: VASCULAR STUDY (02/09/2022 12:00 AM EDT) Narrative 02/09/2022 12:00 AM EDT This result has an attachment that is no t available. Ordered by an unspecified provider. Scanning Provider MEDIA MGR SCAN EXT ORDR/RSLT EKG 12 Lead (02/04/2022 10:43 AM EDT) [facility] gist Method Time Signature Ventricular rate 74 BPM MUSE SYSTEM P-R Interval 160 ms MUSE SYSTEM QRS Duration 105 ms MUSE SYSTEM Q-T Interval 307 ms MUSE SYSTEM QTC Calculated 341 ms MUSE SYSTEM (Bezet) Calculated P [place] 69 degrees MUSE SYSTEM Calculated R [place] 65 degrees MUSE SYSTEM Calculated T [place] 47 degrees MUSE SYSTEM INTERPRETATION Normal sinus rhythm MUSE SYSTEM Normal ECG Confirmed by MD Javier, Sta bharath ([id number]), associate editor KASSIE MCDONALD ([id number]) on 02/04/2022 2:37:31 PM Specimen Anatomical Collection Method Collection Time Receive d Time (Source) Location / / Volume Laterality 02/04/2022 10:43 02/04/2022 2:37 AM EDT PM EDT Narrative This result has an attachment that is no t available. Unknown ECG ORDERABLES Performing Organization Address City/State/ZIP Code Phon e Number MUSE SYSTEM from Last 3 Months Insurance Payer Benefit Plan / Subscriber ID Effective Dates Phone Addre ss Type [place] [id number] 2022-Prese [phone] [address] [facility] [address] [place], [place] [id number] Care Teams Vocational Ed Instructor Relationship Specialty Start Date End Date None PCP - General 02/09/22 None
--- OUTSIDE RECORDS SUMMARY | 2022-03-07 09:03 | XMS_ITS | Clinical Summary ---
:1995 Demographics Home Phone Preferred Language Unknown Marital Status Unknown Baptism Affiliation Unknown Race Unknown Ethnic Group Unknown Author Organization [facility] Address [address] [place] [id number] Care Team Providers Name Role Phone Unavailable Primary Care Provider Unavailable Social History Tobacco Use Types Packs/Day Years Used Date Never Assessed Sex Assigned at Date Recorded Not on file Plan of Treatment Not on file
--- OUTSIDE RECORDS SUMMARY | 2022-03-07 09:03 | XMS_ITS | Continuity of Care Document ---
:1995 Author Organization [facility] Address [address] [place] [address]- Care Team Providers Name Role Phone Jacquie Steward Primary Care Physician Unavailable Encounter BVT Date(s): 02/09/22 - 02/09/[address] [address]- [phone] Encounter Diagnosis Musculoskeletal leg pain (Discharge Diagnosis) - 02/09/22 Soft tissue injury of right lower leg (Discharge Diagnosis) - 02/09/22 Discharge Disposition: Home or Self Care Attending Physician: DIANE SAUCEDO Admitting Physician: DIANE SAUCEDO Allergies, Adverse Reactions, Alerts Substance Reaction Severity Status codeine1 Severe Active 1I pass out Assessment and Plan Extracted from: Title: General Medical Problem *ED Author: DIANE SAUCEDO Da te: 02/09/22 History of Present Illness 26-year-old male non-smoker with history of anxiety, SI, PTSD, and methadone use presenting with complaint I have all the symptoms of a blood clot in my leg. The patient states that he woke up 4 days ago with some pain in the right upper ca lf medially and continued to have discomfort there which is now shifted into the right groin area up to the lower abdomen. He states that it hurts when he savannah ses it with his hand. He has had no feve r, he has had no injuries, he has no prior history of blood dyscrasias or DVT. He reports no rash.. Review of Systems Constitutional symptoms: Negative except as documented in HPI. Skin symptoms: Negative except as docume nted in HPI. Cardiovascular symptoms: Negative except as documented in HPI. Gastrointestinal symptoms: Negative exce pt as documented in HPI. Genitourinary symptoms: Negative except as documented in HPI. Musculoskeletal symptoms: Negative excep t as documented in HPI. Additional review of systems informatio n: All other systems reviewed and otherwise negative. Health Status Allergies: Allergic Reactions (Selected) Severe Codeine- No reactions were documented.. Medications: (Selected) Documented Medications Documented FLUoxetine 60 mg oral [...] . Physical Examination Vital Signs Vital Signs 02/09/2022 10:19 EDT Temperature Temporal Artery 36.3 DegC Peripheral Pulse Rate 72 bpm Respiratory Rate 18 br/min Systolic Blood Pressure 108 mmHg Diastolic Blood Pressure 66 mmHg SpO2 97 % . Measurements 02/09/2022 10:23 EDT Weight Dosing 102.000 kg 02/09/2022 10:23 EDT Height/Length Dosing 175.000 cm 02/09/2022 10:19 EDT Height/Length Estimated 175.000 cm Weight Estimated 102.000 kg . Additional physical exam information: A lert, well-developed, well-nourished, well-hydrated. Vital signs reviewed. Skin: [place], warm, dry. No rash. HEENT: Conjunctiva clear with no scleral icterus. Pupils equal and reactive to light. Extraocular muscles full and intact. COR: Heart rate and rhythm regular, no m urmur, click, gallop, or rub. Chest: Clear. Abdomen: Bowel sounds present and normal ly active throughout. Soft with minimal right lower quadrant tenderness at the level of the groin with no mass, organomegaly, or rebound. Extremities: There is no swelling, eryth evelyn, or deformity of either lower extremity. Measurement of the calf 12 cm below the inferior border of the patella is 41 cm right, 40.5 cm left. There is no appr eciable pain response on compression of the calf. He has some mild tenderness over the medial aspect of the hip abductors of the thigh. There is no increased heat radiance at any location. There are no palpable cords or visible varicosities.. Medical Decision Making Notes: The patient's Wells score for DVT is -1 predicting low likelihood of thromboembolic event. On this basis a D-dimer was ordered and was elevated to 1780. CBC and basic metabolic profile are norm al. [facility] Confirmed availability, order written, transfer arrangements by EMS for ultrasound study and return completed at 1310. At 1650 the vascular imaging ultrasound study is complete and is negative for DVT. Patient will be discharged with a prescr iption for NSAID, and general care for musculotendinous complaints. Instructions given.. Impression and Plan Diagnosis Soft tissue injury of right lower leg (I CD10-CM S89.91XA, Discharge, Medical) Musculoskeletal leg pain ([id number] M79.6 06, Discharge, Medical) Plan Disposition: Discharged: Time 02/09/2022 16:58:00, to home. Prescriptions: Launch prescriptions Pharmacy: etodolac 400 mg oral tablet (Prescribe): 400 mg = 1 tab(s), Oral, BID, Take with food, 30 tab(s), 0 Refill(s). Patient was given the following educatio nal materials: Musculoskeletal Pain, Musculoskeletal Pain. Follow up with: ; Primary healthcare project manager of choice Within 5 to 7 days. Counseled: Patient. Functional Status 02/09/22 COVID-19 Screening None Medications busPIRone 20 mg, Oral, TID, 0 Refill(s) Start Date: 01/20/22 Status: OrderedcloNIDine 0.1 mg oral tablet PRN PRN Anxiety, Q 4 hours, 0 Refill(s) Start Date: 01/21/22 Status: OrderedcloNIDine 0.1 mg oral tablet 0.1 mg = 1 tab(s), Oral, Daily, 0 Refill(s) Start Date: 01/20/22 Status: Orderedetodolac 400 mg oral tablet 400 mg = 1 tab(s), Oral, BID, Take with food, # 30 tab(s), 0 Refill(s), 02/23/22, Pharmacy: [facility]#[id number], 1 tab(s) Oral BID,Instr:Take with food, 175, cm, 02/09/22 10:23:00 EDT, Height/Length Dosing, 102, kg, 02/09/22 10:23:00 EDT, Weight Dosing Start Date: 02/09/22 Stop Date: 02/23/22 Status: Orderedfamotidine 20 mg oral tablet 0 [...] Start Date: 01/20/22 Status: Ordered Mental Status 02/09/22 Level of Consciousness Alert Problem List Condition Effective Dates Status Health Status Informant Anxiety(Confirmed) Active Multiple endocrine tumasia(Confirmed) Active PTSD (post-traumatic stress Active disorder)(Confirmed) Results Laboratory List Name Date Automated Differential Standard 02/09/22 Basic Metabolic Panel Standard (BMP Standard) 02/09/22 CBC w/Diff Standard 02/09/22 D-Dimer 02/09/22 PT (PT/INR) 02/09/22 Most recent to oldest [Reference Range]: 1 NRBC Auto Pct [0.00-0.20 %] 0.00 % (02/09/22 12:20 PM) Creatinine [0.70-1.20 mg/dL] 0.80 mg/dL (02/09/22 12:20 PM) D-Dimer [0.000-0.500 FEU ug/mL] 1.780 FEU ug/mL *HI* (02/09/22 12:20 PM) INR 1.04 *NA* (02/09/22 12:20 PM) AGAP [10.0-18.0 mmol/L] 12.4 mmol/L (02/09/22 12:20 PM) Glucose Lvl [70-100 mg/dL] 93 mg/dL (02/09/22 12:20 PM) Hct [40.1-51.0 %] 37.1 % *LOW* (02/09/22 12:20 PM) Hgb [13.7-17.5 gm/dL] 12.7 gm/dL *LOW* (02/09/22 12:20 PM) Lymph Auto [15.0-45.0 %] 28.5 % (02/09/22 12:20 PM) MCH [25.6-32.2 pg] 30.9 pg (02/09/22 12:20 PM) MCHC [32.3-36.5 gm/dL] 34.2 gm/dL (02/09/22 12:20 PM) MCV [79.0-92.2 fL] 90.3 fL (02/09/22 12:20 PM) [place] Auto [4.0-14.0 %] 8.9 % (02/09/22 12:20 PM) MPV [9.4-12.4 fL] 11.2 fL (02/09/22 12:20 PM) Neutro Auto [50.0-75.0 %] 55.9 % (02/09/22 12:20 PM) Osmolality [268.0-291.0 mOsm/kg] 277.0 mOsm/kg (02/09/22 12:20 PM) Platelet [150-400 x10(3)/uL] 242 x10(3)/uL (02/09/22 12:20 PM) PT [11.0-14.5 second(s)] 13.2 second(s) (02/09/22 12:20 PM) RBC [4.63-6.08 x10(6)/uL] 4.11 x10(6)/uL *LOW* (02/09/22 12:20 PM) Sodium Lvl [136-145 mmol/L] 139 mmol/L (02/09/22 12:20 PM) Basophil Auto [0.0-2.0 %] 0.4 % (02/09/22 12:20 PM) CO2 [22-29 mmol/L] 29 mmol/L (02/09/22:20 PM) Eos Auto [0.0-8.0 %] 6.1 % (02/09/22 12:20 PM) WBC [4.2-9.1 x10(3)/uL] 8.0 x10(3)/uL (02/09/22 12:20 PM) BUN [6-23 mg/dL] 12 mg/dL (02/09/22 12:20 PM) Calcium Lvl [8.6-10.2 mg/dL] 11.1 mg/dL *HI* (02/09/22 12:20 PM) Chloride [98-107 mmol/L] 102 mmol/L (02/09/22 12:20 PM) Potassium Lvl [3.5-5.1 mmol/L] 4.4 mmol/L (02/09/22 12:20 PM) Lymph Absolute [1.30-3.60 x10(3)/uL] 2.28 x10(3)/uL (02/09/22 12:20 PM) [place] Absolute [0.30-0.80 x10(3)/uL] 0.71 x10(3)/uL (02/09/22 12:20 PM) Eos Absolute [0.04-0.36 x10(3)/uL] 0.49 x10(3)/uL *HI* (02/09/22 12:20 PM) NRBC Absolute [0.00-0.01 x10(3)/uL] 0.00 x10(3)/uL (02/09/22 12:20 PM) Neutro Absolute [1.78-5.38 x10(3)/uL] 4.48 x10(3)/uL (02/09/22 12:20 PM) RDW-CV [11.6-14.4 %] 11.9 % (02/09/22 12:20 PM) GFR NonAfrican Croatian [>=60 mL/min/1.73 m2] 115 mL/m in/1.73 m2 (02/09/22 12:20 PM) Immature Gran % [0.00-2.30 %] 0.20 % (02/09/22 12:20 PM) Immature Gran Absolute 0.02 x10(3)/uL *NA* (02/09/22 12:20 PM) Basophil Absolute [0.00-0.10 x10(3)/uL] 0.03 x10(3)/uL (02/09/22 12:20 PM) Vital Signs Most recent to oldest [Reference Range]: 1 2 Temperature Temporal Artery [36.3-37.8 DegC] 36.3 DegC (02/09/22 10:19 AM) Peripheral Pulse Rate [60-100 bpm] 68 bpm 72 bp m (02/09/22 3:51 PM) (02/09/22 10:19 AM) Respiratory Rate [14-20 br/min] 18 br/min 18 br/mi n (02/09/22 3:51 PM) (02/09/22 10:19 AM) Blood Pressure [90-140/60-90 mmHg] 121/67 mmHg 108/6 6 mmHg (02/09/22 3:51 PM) (02/09/22 10:19 AM) Mean Arterial Pressure, Cuff [65-100 mmHg] 85 mmHg (02/09/22 3:51 PM) SpO2 [92-100 %] 98 % 97 % (02/09/22 3:51 PM) (02/09/22 10:19 AM) Height/Length Estimated 175.000 cm (02/09/22 10:19 AM) Height/Length Dosing 175.000 cm (02/09/22 10:23 AM) Weight Estimated 102.000 kg (02/09/22 10:19 AM) Weight Dosing 102.000 kg (02/09/22 10:23 AM) Social History Social History Type Response Tobacco Never tobacco user Tobacco U se:. Sex Hospital Discharge Instructions Patient Lrlifayud59/27/2022 17:17:26Musculoskeletal PainMusculoskeletal Pain Musculoskeletal pain refers to aches and pains in your bones, joints, muscles, and the tissues that surround them. This pain can occur in any part of the body. It can last for a short time (acute) or along time (chronic). A physical exam, lab tests, and imaging studies may be done to find the cause of your musculoskeletal pain. Follow these instructions at home: Lifestyle ??? Try to control or lower your stress levels. Stress increases muscle tension and can worsen musculoskeletal pain. It is important to recognize when you are anxious or stressed and learn ways to manage it. This may include: ??? Meditation or yoga. ??? Cognitive or behavioral therapy. ??? Acupuncture or massage therapy. ??? You may continue all activities unless the activities cause more pain. When the pain gets better, slowly resume your normal activities. Gradually increase the intensity and duration of your activities or exercise. Managing pain, stiffness, and swelling ??? Treatment may include medicines for pain and inflammation that are taken by mouth or applied to the skin. Take [id number] and prescription medicines only as told by your health care provider. ??? When your pain is severe, bed rest may be helpful. Lie or sit in any position that is comfortable, but get out of bed and walk around at least every couple of hours. ??? If directed, apply heat to the affected area as often as told by your health care provider. Use the heat source that your health care provider recommends, such as a moist heat pack or a heating pad. ??? Place a towel between your skin and the heat source. ??? Leave the heat on for 20???30 minutes. ??? Remove the heat if your skin turns bright red. This is especially important if you are unable tofeel pain, heat, or cold. You may have a greater risk of getting burned. ??? If directed, put ice on the painful area. To do this: ??? Put ice in a plastic bag. ??? Place a towel between your skin and the bag. ??? Leave the ice on for 20 minutes, 2???3 times a day. ??? Remove the ice if your skin turns bright red. This is very important. If you cannot feel pain, heat, or cold, you have a greater risk of damage to the area. General instructions ??? Your health care provider may recommend that you see a physical therapist. This person can help you come up with a safe exercise program. ??? If told by your health care provider, do physical therapy exercises to improve movement and strength in the affected area. ??? Keep all follow-up visits. This is important. This includes any physical therapy visits. Contact a health care provider if: ??? Your pain gets worse. ??? Medicines do not help ease your pain. ??? You cannot use the part of your body that hurts, such as your arm, leg, or neck. ??? You have trouble sleeping. ??? You have trouble doing your normal activities. Get help right away if: ??? You have a new injury and your pain is worse or different. ??? You feel numb or you have tingling in the painful area. Summary ??? Musculoskeletal pain refers to aches and pains in your bones, joints, muscles, and the tissues that surround them. ??? This pain can occur in any part of the body. ??? Your health care provider may recommend that you see a physical therapist. This person can help you come up with a safe exercise program. Do any exercises as told by your physical therapist. ??? Lower your stress level. Stress can worsen musculoskeletal pain. Ways to lower stress may include meditation, yoga, cognitive or behavioral therapy, acupuncture, and massage therapy. This information is not intended to replace advice given to you by your health care provider. Make sure you discuss any questions you have with your health care provider. Document Revised: 10/05/2020 Document Reviewed: 09/13/2020 [email or web address] Patient Education ?? 2021 [employer] Cold packs or moist heat, whichever feels better to you can be used as desired and effective. Gentle stretching of your right leg should be done 2 or 3 times daily flexing at the hip and extending the knee and ankle, followed by extending the hip backward. Do not overwork your leg. Etodolac 400 mg, take 1 every 12 hours with food as needed for pain. Do not use ibuprofen with this or neither one will work. Tylenol 500 mg, take 2 every 6 hours as needed for additional pain control. Primary care follow-up in a few days is recommended. Follow Up Care02/09/2022 10:16:11With:Primary healthcare project manager of choice Address:Unknown When:5 to 7 days Patient Care team information PersonnelName: Jacquie Steward
--- OUTSIDE RECORDS SUMMARY | 2022-03-07 09:03 | XMS_ITS | Encounter Summary ---
:1995 Demographics Home Phone Preferred Language Unknown Marital Status Unknown Restorationism Affiliation Unknown Race Unknown Ethnic Group Unknown Author Organization [facility] Address [address] [place] [address] Care Team Providers Name Role Phone Unavailable Primary Care Provider Unavailable Encounter Details Date Type Department Care Team Description 11/14/2021 Lab Requisition [facility] Outr Resulting Lab, Pathology & Laboratory Provider [facility] [address] [place] [address] Social History Tobacco Use Types Packs/Day Years Used Date Never Assessed Sex Assigned at Date Recorded Not on file documented as of this encounter Plan of Treatment Not on filedocumented as of this encounter Procedures Procedure Name Priority Date/Time Associated Diagnosis Comme nts COVID-19 TEST [facility] Today 11/13/2021 20:53 LAB PCR EDT COVID-19 TESTING Routine 11/13/2021 20:53 Results for this EDT procedure are i n the results section. documented in this encounter Results COVID-19 TEST [facility] LAB PCR (11/13/2021 20:53 EDT) Specimen Swab Performing Organization Address City/State/ZIP Code Phon e Number [facility] [address] [place] [address] SERVICES COVID-19 TESTING (11/13/2021 20:53 EDT) COVID-19 rt-PCR Negative Negative [facility] Result Comment: [facility] This test has not been FDA c leared or approved. This test has been authorized by FDA under an EUA for use by authorized laboratories. This test has been authorized only for detection of nucleic acid fro SERVICES m 2019-nCoV, not for any oth er viruses or pathogens. This test is only authorized for the duration of the declaration that circumstances exist justifying the authorization of emergency use of in vitro d iagnostic tests for detectio n and/or diagnosis of 2019-nCoV under section 564(b)(1) of Act, 21 U.S.C ?? 360bbb-3(b) (1), unless the authorization is terminated or revoked sooner. Negative results do not prec lude 2019-nCoV infection and should not be used as the sole basis for treatment or other patient management decisions. Negative results must be combined with clinical observa tions, patient history, and epidemiological informatio n. Testing was performed using the gabriele SARS-CoV-2 assay ([employer] on the Gabriele 6800 System Performing Lab [address] [address] [facility] Lab [facility] SERVICES Specimen Swab Performing Organization Address City/State/ZIP Code Phon e Number [facility] [address] [place] [phone] SERVICES documented in this encounter Visit Diagnoses Not on filedocumented in this encounter
--- OUTSIDE RECORDS SUMMARY | 2022-03-07 09:03 | XMS_ITS | Continuity of Care Document ---
:1995 Author Organization [facility] Address [address] [place] [address]- Care Team Providers Name Role Phone Jacquie Steward Primary Care Physician Unavailable Encounter BVT Date(s): 01/22/22 - 01/22/[address] [address]- [phone] Encounter Diagnosis Suicidal ideation (Discharge Diagnosis) - 01/22/22 Discharge Disposition: Home or Self Care Attending Physician: Demetrice Cobb Admitting Physician: Demetrice Cobb Allergies, Adverse Reactions, Alerts Substance Reaction Severity Status codeine1 Severe Active 1I pass out Assessment and Plan Extracted from: Title: Addendum *ED Author: PRAKASH GARRISON Date: 01/22/22 Medical Decision Making No new issues identified. Transfer paper work completed. Patient accepted at [facility]. Patient opted to decline transfer to [facility]. He instead wants to admitted to [facility]. Apparently they will likely accept patient tomorrow. Patient once again changed his mind and agreed to transfer to [facility]. He was complaining of diffuse body aches as well as chest discomfort. An EKG was obtained prior to transfer and did not show any acute ischemic changes. Impression and Plan Diagnosis Suicidal ideation ([id number] R45.851, Dis charge, Medical) Plan Disposition: Medically cleared. Extracted from: Title: General Medical Problem *ED Author: Demetrice Cobb Eugenio e: 01/22/22 History of Present Illness 26 yoM w/ PMH of depression, PTSD, anxie ty presents complaining of ongoing suicidal thoughts and depression. Patient reports that since he was released from [facility] he continues to feel as t jalen things are not going well. He repo rts that despite being able to follow the safety plan set out for him on his previous ER visit, he continues to feel worse and has ongoing suicidal thoughts. Heather ent reports no new drug or alcohol use s roya his previous evaluation. He denies medical complaints. He reports he did not receive his methadone dose or any of his normal medications today.. Review of Systems Constitutional symptoms: No fever, ENMT symptoms: No sore throat, Respiratory symptoms: No cough, Cardiovascular symptoms: No chest pain, Gastrointestinal symptoms: No abdominal pain, Neurologic symptoms: No headache, Psychiatric symptoms: Depression. Health Status Allergies: Allergic Reactions (Selected) Severe [...] . Physical Examination Vital Signs Vital Signs 01/22/2022 7:36 EDT Temperature Temporal Artery 36.7 DegC Peripheral Pulse Rate 77 bpm Respiratory Rate 18 br/min Systolic Blood Pressure 115 mmHg Diastolic Blood Pressure 69 mmHg 01/21/2022 20:11 EDT Temperature Temporal Artery 36.5 DegC Peripheral Pulse Rate 76 bpm Respiratory Rate 14 br/min Systolic Blood Pressure 129 mmHg Diastolic Blood Pressure 77 mmHg SpO2 99 % 01/21/2022 8:44 EDT Temperature Temporal Artery 36.4 DegC Peripheral Pulse Rate 91 bpm Systolic Blood Pressure 119 mmHg Diastolic Blood Pressure 70 mmHg SpO2 97 % . Measurements 01/22/2022 7:44 EDT Weight Dosing 102.000 kg 01/22/2022 7:44 EDT Height/Length Dosing 175.000 cm 01/22/2022 7:36 EDT Height/Length Estimated 175.000 cm Weight Estimated 102.000 kg 01/21/2022 20:20 EDT Weight Dosing 102.000 kg 01/21/2022 20:20 EDT Height/Length Dosing 175.000 cm 01/21/2022 20:11 EDT Height/Length Estimated 175.000 cm Weight Estimated 102.000 kg 01/21/2022 8:57 EDT Weight Dosing 102.000 kg 01/21/2022 8:57 EDT Height/Length Dosing 175.000 cm 01/21/2022 8:44 EDT Height/Length Estimated 175.000 cm Weight Estimated 102.000 kg . Basic Oxygen Information 01/22/2022 7:36 EDT Oxygen Therapy Room air 01/21/2022 20:11 EDT Oxygen Therapy Room air . General: Alert, no acute distress. Skin: Warm, dry. Head: Normocephalic, atraumatic. Eye: Pupils are equal, round and reactiv e to light, extraocular movements are intact. Ears, nose, mouth and throat: Oral mucos a moist. Cardiovascular: Regular rate and rhythm, No murmur. Respiratory: Lungs are clear to ausculta tion. Gastrointestinal: Soft, Nontender, Non d istended. Neurological: Alert and oriented to pers on, place, time, and situation. Psychiatric: Flat affect. Medical Decision Making Rationale: 26 yoM w/ PMH of PTSD, anxiet y, depression presents complaining of ongoing SI and worsening depression symptoms since recent hospitalization and discharge. Patient medically cleared using SMA RT clearance; no indication for repeat l abs as Utox/COVID testing completed within last 24 hours. Patient methadone dose was confirmed through [facility]. and provided in ED, 110 mg. Home medications or dered. Patient remained calm and coopera tive throughout my shift; evaluated by HCRS and behavioral health, accepted to [facility]. Doc-to-doc completed with Dr. Ayaz Borrego. Patient remains in ED awaiting transfer.. Impression and Plan Diagnosis Suicidal ideation ([id number] R45.851, Dis charge, Medical) Plan Disposition: Patient care transitioned t o: PRAKASH GARRISON. Functional Status 01/22/22 History of Fall in Last 3 Months [place] No Recent Travel History No recent travel Family [...] # 42 cap(s), 0 Refill(s), 01/28/22, Pharmacy: [facility] #[id number], 2 cap(s) Oral TID,x7 day(s), 175, cm, 01/21/22 20:20:00 EDT, Height/Length Dosing, 102, kg, 01/21/22 20:20:00 EDT, Weight Dosing Start Date: 01/21/22 Stop Date: 01/28/22 Status: OrderedtraZODone 100 mg oral tablet 100 mg = 1 tab(s), Once a day (at bedtime), 0 Refill(s) Start Date: 01/20/22 Status: Ordered Mental Status 01/22/22 Level of Consciousness Alert Problem List Condition Effective Dates Status Health Status Informant Anxiety(Confirmed) Active Multiple endocrine tumasia(Confirmed) Active PTSD (post-traumatic stress Active disorder)(Confirmed) Vital Signs Most recent to oldest [Reference Range]: 1 2 Temperature Temporal Artery [36.3-37.8 DegC] 36.2 DegC 36.7 DegC *LOW* (01/22/22 7:36 AM) (01/22/22 5:00 PM) Peripheral Pulse Rate [60-100 bpm] 75 bpm 77 bp m (01/22/22 5:00 PM) (01/22/22 7:36 AM) Respiratory Rate [14-20 br/min] 19 br/min 18 br/mi n (01/22/22 5:00 PM) (01/22/22 7:36 AM) Blood Pressure [90-140/60-90 mmHg] 108/71 mmHg 115/6 9 mmHg (01/22/22 5:00 PM) (01/22/22 7:36 AM) Height/Length Estimated 175.000 cm (01/22/22 7:36 AM) Height/Length Dosing 175.000 cm (01/22/22 7:44 AM) Weight Estimated 102.000 kg (01/22/22 7:36 AM) Weight Dosing 102.000 kg (01/22/22 7:44 AM) Social History Social History Type Response Tobacco Never tobacco user Tobacco U se:. Sex Care Team PersonnelName: Jacquie Steward
--- OUTSIDE RECORDS SUMMARY | 2022-03-07 09:03 | XMS_ITS | Encounter Summary ---
:1995 Author Organization [facility] [place] [address] Care Team Providers Name Role Phone None Primary Care Provider Unavailable Encounter Details Date Type Department Care Team Description 02/09/2022 Interpretation Only [facility] Panda Carroll, [address] [id number] [phone] Social History Tobacco Use Types Packs/Day Years Used Date Never Assessed Sex Assigned at Date Recorded Not on file documented as of this encounter Plan of Treatment Upcoming Encounters Date Type Specialty Care Team Description 03/12/2022 Appointment Radiology Kim Gorman MD [facility] [place], [place] [address] (Wo rk) 03/12/2022 Hospital Encounter Radiology Elida Gorman MD [facility] [place], [place] [address] (Wo rk) documented as of this encounter Visit Diagnoses Not on filedocumented in this encounter Care Teams Peeler Operator Relationship Specialty Start Date End Date None PCP - General 02/09/22 None documented as of this encounter
--- OUTSIDE RECORDS SUMMARY | 2022-03-07 09:03 | XMS_ITS | Continuity of Care Document ---
:1995 Author Organization [facility] Address [address] [place] [address]- Care Team Providers Name Role Phone Jacquie Steward Primary Care Physician Unavailable Encounter BVT Date(s): 01/28/22 - 01/29/[address] [address] [phone] Encounter Diagnosis PTSD (post-traumatic stress disorder) (Discharge Diagnosis) - 01/29/22 Anxiety (Discharge Diagnosis) - 01/29/22 Suicidal ideation (Discharge Diagnosis) - 01/29/22 Suicidal ideations (Final) - Anxiety disorder, unspecified (Final) - Post-traumatic stress disorder, unspecified (Final) - Encounter for screening for COVID-19 (Final) - Discharge Disposition: Home or Self Care Attending Physician: Billie Prakash Admitting Physician: Billie Prakash Allergies, Adverse Reactions, Alerts Substance Reaction Severity Status [id number] Severe Active 1I pass out Assessment and Plan Extracted from: Title: Addendum *ED Author: Demetrice Cobb Date: 01/29/22 Medical Decision Making Notes: Briefly, this is a 26 yoM w/ PMH of PTSD, opioid use disorder in remission on methadone, anxiety who presents with ongoing suicidal thoughts in the setting of social stressors and recent discharg e from [facility]. Patient medically cleared, received in signout pending voluntary psychiatric admission.. Reexamination/ Reevaluation Notes: On my shift, patient accepted to [facility], Guru Garcia accepting. Patient's morning methadone dose of 110mg was provided after verification through habit op Co.. Impression and Plan Diagnosis Anxiety (HKH91-SP F41.9, Discharge, Medi raul) PTSD (post-traumatic stress disorder) (I CD10-CM F43.10, Discharge, Medical) Suicidal ideation (SDN61-GB R45.851, Dis charge, Medical) Plan Disposition: Patient care transitioned t o: [facility]. Extracted from: Title: General Medical Problem *ED Author: Billie Prakash Date: 01/28/22 History of Present Illness 26-year-old male past medical history of anxiety, PTSD, depression presents to the ER for medical clearance for admission to the [facility]. Patient reports that he has intermittent SI no active SI or plan currently at this time. Patient reports that he has severe PTSD, his anxiety has become quite debilitating. He reports that he does not feel as though it is necessarily worth living if life feels this way. He feels that his anxiety so debilitating he does not ofte n wish to leave his home. 2 weeks ago he left the [facility]. He reports he had a very positive experience, he is hoping to return back there. He does not wish to have any VA services. He denies any drug or alcohol use. Denie s any prior attempts at harming himself. Denies any active SI currently but repor ts he can intermittently feel suicidal. There have been no new medication change s. Patient reports in regards to his physic al health he denies any chest pain shortness of breath fevers chills nausea vomiting abdominal pain. PTSD served two tours [place] with [employer]. Review of Systems Constitutional symptoms: No fever, Skin symptoms: No rash, Eye symptoms: No recent vision problems, ENMT symptoms: No sore throat, Respiratory symptoms: No shortness of br eath, no cough. Cardiovascular symptoms: No chest pain, Gastrointestinal symptoms: No abdominal pain, no nausea, no vomiting. Genitourinary symptoms: No dysuria, no h ematuria. Musculoskeletal symptoms: No back pain, Neurologic symptoms: No headache, Psychiatric symptoms: Anxiety, depressio n, suicidal. Endocrine symptoms: No polyuria, Health Status Allergies: Allergic Reactions (Selected) Severe Codeine- No reactions were documented.. Medications: (Selected) Prescriptions Prescribed Tessalon Perles 100 mg oral capsule: 200 mg = 2 cap(s), Oral, TID, for 7 day(s), 42 cap(s), 0 Refill(s) Documented Medications Documented FLUoxetine 60 mg oral [...] . Physical Examination Vital Signs Vital Signs 01/28/2022 12:32 EDT Temperature Temporal Artery 36.7 DegC Peripheral Pulse Rate 94 bpm Respiratory Rate 18 br/min Systolic Blood Pressure 103 mmHg Diastolic Blood Pressure 60 mmHg SpO2 94 % . Measurements 01/28/2022 12:38 EDT Height/Length Dosing 175.000 cm Weight Dosing 102.000 kg 01/28/2022 12:32 EDT Height/Length Estimated 175.000 cm Weight Estimated 102.000 kg . Basic Oxygen Information 01/28/2022 12:32 EDT Oxygen Therapy Room air . General: Alert, no acute distress. Skin: Warm, dry, no rash. Head: Atraumatic. Neck: Supple. Eye: Normal conjunctiva. Cardiovascular: Regular rate and rhythm. Respiratory: Lungs are clear to ausculta tion, respirations are non-labored, breath sounds are equal. Gastrointestinal: Soft, Nontender, Non d istended, Normal bowel sounds. Neurological: Alert and oriented to pers on, place, time, and situation, No focal neurological deficit observed. Psychiatric: Cooperative. Medical Decision Making Results review: Lab results : Lab View 01/28/2022 13:34 EDT SARS-CoV-2 (COVID-19) PCR (GeneXpert) Negative Employed in healthcare? No Symptomatic as defined by CDC? No Hospitalized due to COVID-19? No In ICU? No Group care resident? No status? Not U Amph Scr Negative U Gloria Scr Negative U Benzodia Scr Positive U Buprenorphine Scr Negative U Cocaine Scr Negative U mAMP Scr Negative U Methadone Scr Positive U Opiate Scr Negative U OXY Scr Negative U PCP Scr Negative U PPX Scr Negative U TCA Scr Negative U THC Scr Negative Fentanyl Interp Negative . Reexamination/ Reevaluation Vital signs Basic Oxygen Information 01/28/2022 12:32 EDT Oxygen Therapy Room air Impression and Plan This is a pleasant afebrile 26-year-old male past medical history of anxiety, PTSD, depression presents to the ER for [facility]. Patient reports that he has intermit tent SI no active SI or plan currently a t this time. Patient reports that he has severe PTSD, his anxiety has become quite debilitating. He reports that he does not feel as though it is necessarily worth living if life feels this way. He feels that his an xiety so debilitating he does not often wish to leave his home. 2 weeks ago he left the [facility] eat. He reports he had a very positive experience, he is hoping to return back there. He does not wish to have any VA services. 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 On exam, patient does appear mildly anxi ous, he makes appropriate eye contact. Patient is looking for structure he did quite well at [facility] and is hoping to go's there. He does deny any act alvarez suicidal ideation but does display p assive suicidal ideation with comments such as I cannot cannot keep living like this he feels that his mood is worse and he will have episodic thoughts of SI. Skyler lara was recently at the [facility] 01/14, but left as there is not much structure and did not feel that he was receiving services. Urine drug screen is positive for methad one and benzodiazepine. Patient is COVID-negative. Pt has remained calm, cooperative withou t issues on shift. Home medications have been ordered. [facility]. methadone dose does need to be confirmed tomorrow am. Signout given to Dr. Nelson 0. Should pt wish to leave recommend a repeat eval. He is currently voluntary. Functional Status 01/28/22 Recent Travel History No recent travel Family [...] Start Date: 01/20/22 Status: Ordered Mental Status 01/28/22 Level of Consciousness Alert Problem List Condition Effective Dates Status Health Status Informant Anxiety(Confirmed) Active Multiple endocrine tumasia(Confirmed) Active PTSD (post-traumatic stress Active disorder)(Confirmed) Results Laboratory List Name Date Fentanyl Level 01/28/22 SARS-CoV-2 (COVID-19) PCR (GeneXpert) 01/28/22 Urine Drug Screen Standard (UDS Standard) 01/28/22 Most recent to oldest [Reference Range]: 1 U Buprenorphine Scr [Negative] Negative (01/28/22 1:34 PM) U Benzodia Scr [Negative] Positive *ABN* (01/28/22 1:34 PM) U Cocaine Scr [Negative] Negative (01/28/22 1:34 PM) U Opiate Scr [Negative] Negative (01/28/22 1:34 PM) U PCP Scr [Negative] Negative (01/28/22 1:34 PM) U Amph Scr [Negative] Negative (01/28/22 1:34 PM) U Gloria Scr [Negative] Negative (01/28/22 1:34 PM) U TCA Scr [Negative] Negative (01/28/22 1:34 PM) U mAMP Scr [Negative] Negative (01/28/22 1:34 PM) U OXY Scr [Negative] Negative (01/28/22 1:34 PM) U PPX Scr [Negative] Negative (01/28/22 1:34 PM) Fentanyl Interp [Negative] Negative (01/28/22 1:34 PM) U THC Scr [Negative] Negative (01/28/22 1:34 PM) U Methadone Scr [Negative] Positive *ABN* (01/28/22 1:34 PM) SARS-CoV-2 (COVID-19) PCR (GeneXpert) [Negative] Negat alvarez (01/28/22 1:34 PM) Employed in healthcare? No *NA* (01/28/22 1:34 PM) Symptomatic as defined by CDC? No *NA* (01/28/22 1:34 PM) Hospitalized due to COVID-19? No *NA* (01/28/22 1:34 PM) In ICU? No *NA* (01/28/22 1:34 PM) Group care resident? No *NA* (01/28/22 1:34 PM) status? Not *NA* (01/28/22 1:34 PM) Vital Signs Most recent to oldest 1 2 3 [Reference Range]: Temperature Temporal Artery 36.4 DegC 36.7 DegC [36.3-37.8 DegC] (01/28/22 9:53 PM) (01/28/22 12:32 PM) Temperature Temporal Artery 97.52 DegF (DegF) (01/28/22 9:53 PM) Peripheral Pulse Rate 87 bpm 87 bpm 94 bpm [60-100 bpm] (01/29/22 8:26 AM) (01/28/22 9:53 PM) (01/28/22 12: 32 PM) Respiratory Rate [14-20 16 br/min 16 br/min 18 br/mi n br/min] (01/29/22 8:26 AM) (01/28/22 9:53 PM) (01/28/22 12: 32 PM) Blood Pressure [90-140/60-90 104/77 mmHg 107/54 mmHg 103 /60 mmHg mmHg] (01/29/22 8:26 AM) (01/28/22 9:53 PM) (01/28/22 12: 32 PM) Mean Arterial Pressure, Cuff 72 mmHg [65-100 mmHg] (01/28/22 9:53 PM) SpO2 [92-100 %] 100 % 95 % 94 % (01/29/22 8:26 AM) (01/28/22 9:53 PM) (01/28/22 12: 32 PM) Height/Length Estimated 175.000 cm (01/28/22 12:32 PM) Height/Length Dosing 175.000 cm (01/28/22 12:38 PM) Weight Estimated 102.000 kg (01/28/22 12:32 PM) Weight Dosing 102.000 kg (01/28/22 12:38 PM) Social History Social History Type Response Tobacco Never tobacco user Tobacco U se:. Sex Care Team PersonnelName: Jacquie Steward
--- OUTSIDE RECORDS SUMMARY | 2022-03-07 09:03 | XMS_ITS | Encounter Summary ---
:1995 Demographics Home Phone Preferred Language Unknown Marital Status Unknown Religion Affiliation Unknown Race Unknown Ethnic Group Unknown Author Organization [facility] Address [address] [place] [address] Care Team Providers Name Role Phone Unavailable Primary Care Provider Unavailable Encounter Details Date Type Department Care Team Description 10/02/2021 Lab Requisition [facility] Outr Resulting Lab, Pathology & Laboratory Provider [facility] [address] [place] [address] Social History Tobacco Use Types Packs/Day Years Used Date Never Assessed Sex Assigned at Date Recorded Not on file documented as of this encounter Plan of Treatment Not on filedocumented as of this encounter Procedures Procedure Name Priority Date/Time Associated Diagnosis Comme nts COVID[facility]19 [facility] Today 10/01/2021 12:00 LAB PCR EDT COVID-19 TESTING Routine 10/01/2021 12:00 Results for this EDT procedure are i n the results section. documented in this encounter Results COVID-19 TEST [facility] PCR (10/01/2021 12:00 EDT) Specimen Swab Performing Organization Address City/State/ZIP Code Phon e Number [facility] [address] [place] [address] SERVICES COVID-19 TESTING (10/01/2021 12:00 EDT) COVID-19 rt-PCR Negative Negative [facility] Result Comment: [facility] This test has not been FDA [...] was performed using the gabriele SARS-CoV-2 assay ([employer] on the Gabriele 6800 System Performing Lab [place] [address] [facility] Lab [facility] SERVICES Specimen Swab Performing Organization Address City/State/ZIP Code Phon e Number [facility] [address] [phone] SERVICES documented in this encounter Visit Diagnoses Not on filedocumented in this encounter
--- OUTSIDE RECORDS SUMMARY | 2022-03-07 09:03 | XMS_ITS | Encounter Summary ---
:1995 Author Organization [facility] [place] [address] Care Team Providers Name Role Phone Porfirio Johnson MD, Manuel Primary Care Provider Reason for Referral Consultation (Routine) - Closed Specialty Diagnoses / Procedures Referred By Contact Refer red To Contact General Surgery Diagnoses Endocrine disorder, unspecified Family history of multiple endocrine neoplasia (MEN) syndrome Hypercalcemia Ashley Juan APRN Sorensen, Meredith J, [address] [place] [address] [address] [place], [place] [address] [facility] SUR[facility] [place], [place] [address] Phone: Fax: Referral ID Status Reason Start Date Expiration Date Visits V isits Requested Authorized [id number] Closed Consult, 11/09/2021 11/09/2022 1 1 Test & Treat Encounter Details Date Type Department Care Team Description 11/09/2021 Transcribe Orders eDH Incoming Drake, Endocrine disorder, unspecified; Referrals YASSINE Ramirez Family history of multiple endocrine rahel plasia (MEN) syndrome; [phone] [place] [address] Hypercalcemia [place], [place] [id number] Social History Tobacco Use Types Packs/Day Years Used Date Never Assessed Sex Assigned at Date Recorded Not on file documented as of this encounter Plan of Treatment Upcoming Encounters Date Type Specialty Care Team Description 03/12/2022 Appointment Radiology Kim Gorman MD [facility] SUR[facility] [place], [place] [address] (Wo rk) 03/12/2022 Hospital Encounter Radiology Elida Gorman MD [facility] [place], [place] [address] (Wo rk) Scheduled Referrals Name Type Priority Associated Diagnoses Order S chedule Referral to Outpatient Referral Routine Endocrine disorder, O rdered: General Surgery unspecified 11/09/2021 Family history of multiple endocrine neoplasia (MEN) syndrome Hypercalcemia documented as of this encounter Visit Diagnoses Diagnosis Endocrine disorder, unspecified Family history of multiple endocrine rahel plasia (MEN) syndrome Family history of multiple endocrine rahel plasia [MEN] syndrome Hypercalcemia documented in this encounter Care Teams Supervisor Facepiece Line Relationship Specialty Start Date End Date Manuel Monroy MD PCP - General 05/08/10 02/08/22 [place] [address] documented as of this encounter
--- OUTSIDE RECORDS SUMMARY | 2022-03-07 09:03 | XMS_ITS | Continuity of Care Document ---
:1995 Author Organization [facility] Address [address] [place] [address]- Care Team Providers Name Role Phone Jacquie Steward Primary Care Physician Unavailable Encounter BVT Date(s): 01/21/22 - 01/21/[address] [address]- [phone] Encounter Diagnosis Suicidal ideation (Discharge Diagnosis) - 01/21/22 Discharge Disposition: Home or Self Care Attending Physician: Nisreen Suárez MD Admitting Physician: Nisreen Suárez MD Allergies, Adverse Reactions, Alerts Substance Reaction Severity Status codeine1 Severe Active 1I pass out Assessment and Plan Extracted from: Title: Mental health Author: Nisreen Suárez MD Date: History of Present Illness This is a 26-year-old man with past [facility] history of PTSD, was in the ED yesterday with suicidal ideation, [facility] but unfortunately patient has had worsening s ymptoms, worsening suicidal thoughts sin ce hospital discharge yesterday. Has not attempted to harm himself. Denies any acute medical concerns. Has been eating and drinking normally, has some chronic jeff n in his left leg from a femur fracture sustained while in the , but this is no worse than normal. Has had thoughts of hanging himself. Review of Systems Additional review of systems informatio n: All systems reviewed as documented in chart. Constitutional: No fever, no chills, no weakness Skin: No rashes Eyes: No visual changes, no discharge Ear nose and throat: No sore throat, no nasal congestion, no difficulty swallowing Respiratory: No shortness of breath, no cough, no wheezing Cardiovascular: No chest pain, no palpit ations, no syncope Gastrointestinal: No abdominal pain, no nausea, no vomiting, no diarrhea Genitourinary: No dysuria, no hematuria Musculoskeletal: No back pain, no neck p ain, no joint pain Neurologic: No headache, no dizziness, n o numbness or tingling, no slurred speech Health Status Allergies: Allergic Reactions (Selected) Severe Codeine- No reactions were documented.. Medications: (Selected) Documented Medications Documented FLUoxetine 60 mg oral tablet: 60 mg = 1 tab(s), Oral, Daily, 0 Refill(s) busPIRone: 20 mg, Oral, TID, 0 Refill(s) cloNIDine 0.1 mg oral tablet: 0.1 mg = 1 tab(s), Oral, Daily, 0 Refill(s) famotidine 20 mg oral tablet: [...] history has been recorded . Problem list: No qualifying data available . Physical Examination Vital Signs Vital Signs 01/21/2022 8:44 EDT Temperature Temporal Artery 36.4 DegC Peripheral Pulse Rate 91 bpm Systolic Blood Pressure 119 mmHg Diastolic Blood Pressure 70 mmHg SpO2 97 % 01/20/2022 10:32 EDT Temperature Temporal Artery 37.1 DegC Peripheral Pulse Rate 76 bpm Respiratory Rate 18 br/min Systolic Blood Pressure 115 mmHg Diastolic Blood Pressure 76 mmHg SpO2 96 % . Measurements 01/21/2022 8:57 EDT Weight Dosing 102.000 kg 01/21/2022 8:57 EDT Height/Length Dosing 175.000 cm 01/21/2022 8:44 EDT Height/Length Estimated 175.000 cm Weight Estimated 102.000 kg 01/20/2022 10:42 EDT Height/Length Dosing 175.000 cm Weight Dosing 99.790 kg 01/20/2022 10:32 EDT Height/Length Estimated 175.000 cm Weight Estimated 99.790 kg . Basic Oxygen Information 01/20/2022 10:32 EDT Oxygen Therapy Room a ir . General: Awake and alert, no acute distr ess, cooperative, well-appearing normal weight HEENT: Normocephalic, atraumatic, pupils equal, round, and reactive to light and accommodation, no nystagmus Neck: Trachea is midline, no lymphadenop athy Cardiovascular: S1-S2, regular rate and rhythm, no murmurs rubs or gallops Pulmonary: Clear to auscultation, no res piratory distress, no wheezes Extremities: Well perfused, no edema, no ntender, no deformity Neurologic: Face is symmetrical, speech is clear, moves all 4 with full power, normal gait Psych: Normal mood and affect Skin: Warm and dry, no rashes Reexamination/ Reevaluation Vital signs Basic Oxygen Information 01/20/2022 10:32 EDT Oxygen Therapy Room a ir SMART medical clearance (if all 5 of the following are answered no the patient is considered medically cleared and no testing is indicated): Suspect new onset psychiatric condition or features? No Medical conditions that require screenin g? No Diabetes (FSBS less than 60 or greater than 250)? Possibility of (age 12-50)? Other complaints that require screening ? Abnormal vital signs? No Temp: Greater than 38.0 ??C (100.4 ??F) Heart rate: Less than 50 or greater peter n 110 BP: Less than 100 systolic or greater t singh 180/100 (2 consecutive readings 10 minutes apart) Respiratory rate: Less than 8 or greate r than 22 O2 sat: Less than 95% on room air Mental status? Cannot answer name, month/year and loca tion (minimum A/O x3) If clinically intoxicated, HII score 4 or more? Physical exam (unclothed)? Risky presentation? No Age less than 12 or greater than 55 Possibility of ingestion (screen all ashton icidal patients) Eating disorders Potential for alcohol withdrawal (daily use greater than or equal to 2 weeks) Ill-appearing, significant injury, prol onged struggle or found down Therapeutic level needed? No Phenytoin, valproic acid, lithium, digo katerina, warfarin, carbamazepine Impression and Plan Diagnosis Suicidal ideation ([id number] R45.851, Dis charge, Medical) Plan Condition: Stable. Disposition: Discharged: to home. Patient was given the following educatio nal materials: Suicidal Feelings: How to Help Yourself, Suicidal Feelings: How to Help Yourself. Follow up with: Jacquie oakley 1 to 2 days; Skyler PATEL Within 1 to 2 days. Counseled: Patient, Regarding diagnosis, Regarding treatment plan, Patient indicated understanding of instructions. Functional Status 01/21/22 COVID-19 Screening None Medications busPIRone 20 mg, [...] # 42 cap(s), 0 Refill(s), 01/28/22, Pharmacy: [id number], 2 cap(s) Oral TID,x7 day(s), 175, cm, [...] Results Laboratory List Name Date Fentanyl Level 01/21/22 SARS-CoV-2 (COVID-19) PCR (GeneXpert) 01/21/22 Urine Drug Screen Standard (Drug Screen Urine) 01/21/22 Most recent to oldest [Reference Range]: 1 U Buprenorphine Scr [Negative] Negative (01/21/22 10:17 AM) U Benzodia Scr [Negative] Positive *ABN* (01/21/22 10:17 AM) U Cocaine Scr [Negative] Negative (01/21/22 10:17 AM) U Opiate Scr [Negative] Negative (01/21/22 10:17 AM) U PCP Scr [Negative] Negative (01/21/22 10:17 AM) U Amph Scr [Negative] Negative (01/21/22 10:17 AM) U Gloria Scr [Negative] Negative (01/21/22 10:17 AM) U TCA Scr [Negative] Negative (01/21/22 10:17 AM) U mAMP Scr [Negative] Negative (01/21/22 10:17 AM) U OXY Scr [Negative] Negative (01/21/22 10:17 AM) U PPX Scr [Negative] Negative (01/21/22 10:17 AM) Fentanyl Interp [Negative] Negative (01/21/22 10:17 AM) U THC Scr [Negative] Negative (01/21/22 10:17 AM) U Methadone Scr [Negative] Positive *ABN* (01/21/22 10:17 AM) SARS-CoV-2 (COVID-19) PCR (GeneXpert) [Negative] Negat alvarez (01/21/22 10:17 AM) Employed in healthcare? No *NA* (01/21/22 10:17 AM) Symptomatic as defined by CDC? No *NA* (01/21/22 10:17 AM) Hospitalized due to COVID-19? No *NA* (01/21/22 10:17 AM) In ICU? No *NA* (01/21/22 10:17 AM) Group care resident? No *NA* (01/21/22 10:17 AM) status? Not *NA* (01/21/22 10:17 AM) Vital Signs Most recent to oldest [Reference Range]: 1 Temperature Temporal Artery [36.3-37.8 DegC] 36.4 DegC (01/21/22 8:44 AM) Peripheral Pulse Rate [60-100 bpm] 91 bpm (01/21/22 8:44 AM) Blood Pressure [90-140/60-90 mmHg] 119/70 mmHg (01/21/22 8:44 AM) SpO2 [92-100 %] 97 % (01/21/22 8:44 AM) Height/Length Estimated 175.000 cm (01/21/22 8:44 AM) Height/Length Dosing 175.000 cm (01/21/22 8:57 AM) Weight Estimated 102.000 kg (01/21/22 8:44 AM) Weight Dosing 102.000 kg (01/21/22 8:57 AM) Social History Social History Type Response Tobacco Never tobacco user Tobacco U se:. Sex Hospital Discharge Instructions Patient Qacmovujt30/08/2022 15:17:37Suicidal Feelings: How to Help Yourself Suicidal Feelings: How to Help Yourself Suicide is when you end your own life. There are many things you can do to help yourself feel betterwhen struggling with these feelings. Many services and people are available to support you and others who struggle with similar feelings. If you ever feel like you may hurt yourself or others, or have thoughts about taking your own life, get help right away. To get help: ??? Call your local emergency services (911 in the [place] ??? The [facility] and human services helpline (211 in the [place] ??? Go to your nearest emergency department. ??? Call a suicide hotline to speak with a trained counselor. The following suicide hotlines are available in the [place]: ??? 9-924-694-TALK ( ). ??? 4-044-FFJTWRH ( ). ??? . This is a hotline for Occitan speakers. ??? . This is a hotline for TTY users. ??? 4-945-2-U-JUAN C ( ). This is a hotline for lesbian, olsen, bisexual, transgender, orquestioning youth. ??? For a list of hotlines in [place], visit www.suicide.org/hotlines/international/wttzsy-sajqqbu-fsiesnex.html ??? Contact a crisis center or a local suicide prevention center. To find a crisis center or suicideprevention center: ??? Call your local hospital, clinic, community service organization, mental health center, social service provider, or health department. Ask for help with connecting to a crisis center. ??? For a list of crisis centers in the [place], visit: suicidepreventionlifeline.org ??? For a list of crisis centers in [place], visit: suicideprevention.wy How to help yourself feel better ??? Promise yourself that you will not do anything extreme when you have suicidal feelings. Rememberthe times you have felt hopeful. Many people have gotten through suicidal thoughts and feelings, andyou can too. If you have had these feelings before, remind yourself that you can get through them again. ??? Let family, friends, teachers, or counselors know how you are feeling. Try not to separate yourself from those who care about you and want to help you. Talk with someone every day, even if you do not feel sociable. Ziei-we-yzrt conversation is best to help them understand your feelings. ??? Contact a mental health care provider and work with this person regularly. ??? Make a safety plan that you can follow during a crisis. Include phone numbers of suicide prevention hotlines, mental health professionals, and trusted friends and family members you can call duringan emergency. Save these numbers on your phone. ??? If you are thinking of taking a lot of medicine, give your medicine to someone who can give it to you as prescribed. If you are on antidepressants and are concerned you will overdose, tell your health care provider so that he or she can give you safer medicines. ??? Try to stick to your routines and follow a schedule every day. Make self- care a priority. ??? Make a list of realistic goals, and cross them off when you achieve them. Accomplishments can give you a sense of worth. ??? Wait until you are feeling better before doing things that you find difficult or unpleasant. ??? Do things that you have always enjoyed to take your mind off your feelings. Try reading a book, or listening to or playing music. Spending time outside, in nature, may help you feel better. Follow these instructions at home: ??? Visit your primary health care provider every year for a checkup. ??? Work with a mental health care provider as needed. ??? Eat a well-balanced diet, and eat regular meals. ??? Get plenty of rest. ??? Exercise if you are able. Just 30 minutes of exercise each day can help you feel better. ??? Take exoa-fpd-kvitypj and prescription medicines only as told by your health care provider. Ask your mental health care provider about the possible side effects of any medicines you are taking. ??? Do not use alcohol or drugs, and remove these substances from your home. ??? Remove weapons, poisons, knives, and other deadly items from your home. General recommendations ??? Keep your living space well lit. ??? When you are feeling well, write yourself a letter with tips and support that you can read when you are not feeling well. ??? Remember that life's difficulties can be sorted out with help. Conditions can be treated, and you can learn behaviors and ways of thinking that will help you. Where to find more information ??? National Suicide Prevention Lifeline: www.suicidepreventionlifeline.org ??? Hopeline: www.hopeline.com ??? [place] [employer] Foundation for Suicide Prevention: www.afsp.org ??? The Juan C Project (for lesbian, olsen, bisexual, transgender, or questioning youth): www.theNaturVentionvorproject.org ??? National [place] of Mental Health: https://www.nimh.nih.gov/health/topics/suicide-prevention Contact a health care provider if: ??? You feel as though you are a burden to others. ??? You feel agitated, angry, vengeful, or have extreme mood swings. ??? You have withdrawn from family and friends. Get help right away if: ??? You are talking about suicide or wishing to . ??? You start making plans for how to commit suicide. ??? You feel that you have no reason to live. ??? You start making plans for putting your affairs in order, saying goodbye, or giving your possessions away. ??? You feel guilt, shame, or unbearable pain, and it seems like there is no way out. ??? You are frequently using drugs or alcohol. ??? You are engaging in risky behaviors that could lead to . If you have any of these symptoms, get help right away. Call emergency services, go to your nearest emergency department or crisis center, or call a suicide crisis helpline. Summary ??? Suicide is when you take your own life. ??? Promise yourself that you will not do anything extreme when you have suicidal feelings. ??? Let family, friends, teachers, or counselors know how you are feeling. ??? Get help right away if you start making plans for how to commit suicide. This information is not intended to replace advice given to you by your health care provider. Make sure you discuss any questions you have with your health care provider. Document Revised: 02/14/2021 Document Reviewed: 02/16/2021 Elsevier Patient Education ?? 2021 [employer] Follow Up [facility]01/21/2022 08:39:01With:H [facility] Address:Unknown When:1 to 2 daysWith:Jacquie Steward Address:Unknown When:1 to 2 days Care Team PersonnelName: Jacquie Steward
--- OUTSIDE RECORDS SUMMARY | 2022-03-07 09:03 | XMS_ITS | Encounter Summary ---
:1995 Author Organization [facility] [place] [address] Care Team Providers Name Role Phone None Primary Care Provider Unavailable Reason for Referral Diagnostic Test (Routine) - Closed Specialty Diagnoses / Procedures Referred By Contact Refer red To Contact Diagnoses Lower extremity pain, right Santiago Carroll DO [facility] Rad Ultrasound Procedures Vascular Imaging Venous Lower Extremity Unilateral [address] [facility] [address] [place], [place] [address] [address] [place] [address] Referral ID Status Reason Start Date Expiration Date Visits V isits Requested Authorized [id number] Closed Specialty 02/09/2022 08/12/2023 1 1 Service Requested Reason for Visit Diagnostic Test (Routine) - Closed Specialty Diagnoses / Procedures Referred By Contact Refer red To Contact Diagnoses Lower extremity pain, right Santiago Carroll DO [facility] Ultrasound Procedures Vascular Imaging Venous Lower Extremity Unilateral [address] [place], [place] [address] [address] [place] [address] Referral ID Status Reason Start Date Expiration Date Visits V isits Requested Authorized [id number] Closed Specialty 02/09/2022 08/12/2023 1 1 Service Requested Encounter Details Date Type Department Care Team Description 02/09/2022 Hospital Encounter Ultrasound at Santiago Carroll Lower extremity Murray DO pain, right [address] [facility] [address] [place] [id number] [phone] Social History Tobacco Use Types Packs/Day Years Used Date Never Assessed Sex Assigned at Date Recorded Not on file documented as of this encounter Medications at Time of Discharge Medication Sig Dispensed Refills Start Date End Date busPIRone (Buspar) 10 mg Take 2 tablets by 0 /2 11/2021 Tablet mouth 3 times daily. cloNIDine (Catapres) 0.1 0.1 mg. 0 02/08/2022 mg Tablet docusate sodium (Colace) 0 02/07/2022 100 mg Capsule doxepin (Silenor) 3 mg 0 10/25/2021 Tablet escitalopram (Lexapro) 20 Take 20 mg by mouth 0 0 10/01/2021 mg Tablet daily. FLUoxetine (PROzac) 20 mg Take 3 capsules by 0 Capsule mouth daily. gabapentin (NEURONTIN) 600 0 2 mg Tablet omeprazole (PriLOSEC) 20 Take 20 mg by mouth 0 mg Capsule, Delayed daily. Release(E.C.) traZODone (Desyrel) 100 mg Take 100 mg by mouth 0 01/17/2022 Tablet nightly. documented as of this encounter Plan of Treatment Upcoming Encounters Date Type Specialty Care Team Description 03/12/2022 Appointment Radiology Kim Gorman MD [place], [place] [address] (Wo rk) 03/12/2022 Hospital Encounter Radiology Elida Gorman MD [place], [place] [address] (Wo rk) documented as of this encounter Procedures Procedure Name Priority Date/Time Associated Comments Diagnosis VASCULAR IMAGING Routine 02/09/2022 3:05 PM Lower extremity Re sults for this VENOUS LOWER EDT pain, right procedure are i n EXTREMITY UNILATERAL the res ults section. VASCULAR STUDY SCAN 02/09/2022 12:00 AM R esults for this EDT procedure are i n the results section. documented in this encounter Results Vascular Imaging Venous Lower Extremity Unilateral (02/09/2022 [...] who have questions please contact the health daycare assistant that requested your imaging first. ? Electronically signed by: MIKE WHITEHEAD MD, [facility] ([phone]), at 02/09/2022 3:15 PM Narrative 02/09/2022 3:15 [...] ho have questions please contact the health daycare assistant that requested your imaging first. Electronically signed by: MIKE WHITEHEAD MD, [facility] ([phone]), at 02/09/2022 3:15 PM Santiago Carroll DO IMG AFFIL VASCULAR ORDERABLE S SCAN DOC: VASCULAR STUDY (02/09/2022 12:00 AM EDT) Narrative 02/09/2022 12:00 AM EDT This result has an attachment that is no t available. Ordered by an unspecified provider. Scanning Provider MEDIA MGR SCAN EXT ORDR/RSLT documented in this encounter Visit Diagnoses Diagnosis Lower extremity pain, right Pain in limb documented in this encounter Care Teams [employer] Relationship Specialty Start Date End Date None PCP - General 02/09/22 None documented as of this encounter
--- OUTSIDE RECORDS SUMMARY | 2022-03-07 09:03 | XMS_ITS | Encounter Summary ---
:1995 Author Organization [facility] [place] [address] Care Team Providers Name Role Phone None Primary Care Provider Unavailable Reason for Referral Diagnostic Test (Routine) - Authorized Specialty Diagnoses / Procedures Referred By Contact Refer red To Contact Radiology Diagnoses MEN 1 (multiple endocrine neoplasia) Siomara Nelson MD [facility] Rad Mri Procedures MRI Pituitary wwo Contrast MRI Brain wwo Contrast (Generic) [facility] [place] [address] [place] [address] Referral ID Status Reason Start Expiration Visits Visits Date Date Requested Authorized [id number] Authorized Specialty 02/21/2022 08/22/2023 1 1 Service Requested Reason for Visit Reason Comments Establish Care Encounter Details Date Type Department Care Team Description 02/21/2022 Office Visit General Surgery at Elida Nelson MD [facility] [place] [address] MEN 1 (multiple [facility] Joan Covington APRN [facility] [place] [address] endocrine neoplasia) [place] [address] Social History Tobacco Use Types Packs/Day Years Used Date Never Smoker Sex Assigned at Date Recorded Not on file documented as of this encounter Last Filed Vital Signs Vital Sign Reading [...] Mass Index 32.26 02/21/2022 2:08 PM EDT documented in this encounter Progress Notes Siomara Nelson MD - 02/21/2022 2:00 PM EDT Endocrine Surgery Initial Consultation HPI: Mr. Pedro Pablo Cortes is a very pleasant 26 y.o. year old male who presents for evaluation of primary hyperparathyroidism as a referral from Ashley Juan APRN, in the setting of MEN-1. He is accompanied by his mother today, who is able to provide more history about his father who of [id number] tumors. They report that he had lung cancer, stomach cancer, tumors in his pancreas, kidneys, and intestines, and lumps on his skin in addition to being s/p parathyroidectomy. His sister (Pedro Pablo's paternal aunt) in her 30s reportedly of thyroid cancer. His dad was adopted, and they do not know family history beyond that. Pedro Pablo has one sister who has tested negative and another who has refused genetic testing so far. Pedro Pablo states that he tested positive at the age of 18 (tested due to his father's diagnosis) at [facility] in [place]. He has had no subsequent follow-up. Recently, he was feeling poorly and sought care from his PCP. On basic labs, he was found to be hypercalcemic and also had a high PTH. There is a history of nephrolithiasis. There is not a recent history of fractures. He reports a number of other systemic symptoms including pain in chest and neck, trouble swallowing, trouble breathing, voice changes, blurry vision, headaches, generalized weakness, bones ache, and nocturia x 6-7. He has severe constipation (can go 1 month without having a bowel movement) and stomach cramps. He does experience frequent heartburn and takes famotidine for it. There is not a history of previous anterior neck surgery. He has a relevant family history as outlined above. He saw Dr. Borja in October. According to those notes, he was complaining of hoarseness at that time aswell. Flexible laryngoscopy was normal. Recent labs: Serum calcium 11.4 mg/dL PTH 208 pg/mL 25-OH Vitamin D ng/mL Ionized Calcium mmol/L Phosphorus mg/dL 24 hour urine calcium mg/24hr Recent studies: Recent DEXA scan: never performed Sestamibi scan: never performed Cervical ultrasound has not yet been performed. Past Medical History: Diagnosis Date ??? Anxiety ??? History of drug abuse ??? Hypercholesteremia No past surgical history on file. Current Outpatient Medications on File Prior to Visit Medication Sig Dispense Refill ??? busPIRone (Buspar) 10 mg Tablet Take 2 tablets by mouth 3 times daily. ??? docusate sodium (Colace) 100 mg Capsule ??? doxepin (Silenor) 3 mg Tablet ??? escitalopram (Lexapro) 20 mg Tablet Take 20 mg by mouth daily. ??? famotidine (Pepcid) 20 mg Tablet TAKE ONE TABLET BY MOUTH TWICE A DAY FOR STOMACH ACID ??? FLUoxetine (PROzac) 20 mg Capsule Take 3 capsules by mouth daily. ??? gabapentin (NEURONTIN) 600 mg Tablet ??? lidocaine (Lidoderm) 5% Adhesive Patch, Medicated APPLY 1 PATCH TOPICALLY EVERY DAY FOR PAIN, PRESS PATCH ON SKIN FOR 10-15 SECONDS TO ACTIVATE ADHESIVE, APPLY ONLY ONCE FOR UP TO 12 HOURS WITHIN A24 HOUR PERIOD ??? methadone (Dolophine) 10 mg/mL Concentrate 105 mg Daily. ??? omeprazole (PriLOSEC) 20 mg Capsule, Delayed Release(E.C.) Take 20 mg by mouth daily. ??? QUEtiapine (SEROquel) 100 mg Tablet 50 mg. ??? senna-docusate (Pericolace) 8.6-50 mg Tablet TAKE ONE TABLET BY MOUTH TWICE A DAY FOR CONSTIPATION ??? traZODone (Desyrel) 100 mg Tablet Take 100 mg by mouth nightly. ??? cloNIDine (Catapres) 0.1 mg Tablet 0.1 mg. No current facility-administered medications on file prior to visit. Allergies as of 02/21/2022 - never reviewed Allergen Reaction Noted ??? Codeine 02/21/2022 Family History: Father had MEN 1 and multiple endocrinopathies as outlined in HPI. Paternal aunt nilsa had thyroid cancer. Social History: He is not working. We was in the [employer] for 8 years. He does not smoke. No alcohol. He has a history of drug abuse and is on methadone. No professional public speaking or singing Review of Systems: 10 of 14 systems reviewed and all negative except as per HPI Encounter Vitals: BP 109/53 (BP Location (NBP): Right arm) Pulse 70 Resp 16 Ht 172.5 cm (5' 7.91) Wt 96 kg (211 lb 9.6 oz) SpO2 98% BMI 32.26 kg/m?? Physical Exam: System Normal Abnl Findings General [x] [] Well nourished, appears well Skin [x] [] Warm and dry Neck [x] [] No thyromegaly, no masses, trachea midline Lymph Nodes [x] [] No cervical lymphadenopathy Lungs [x] [] Normal respiratory effort, clear to auscultation bilaterally Cardiovascular [x] [] Regular rate and rhythm, no murmurs Extremities [x] [] Warm, no edema, full ROM Neuro [x] [] Motor intact, voice normal Psych [x] [] Normal mood and affect; responds to questions appropriately Procedures performed this visit: Thyroid, Parathyroid and Cervical Ultrasound I performed a thyroid, parathyroid and cervical ultrasound at the time of the clinic visit today using the 12 mHz linear ultrasound transducer. The thyroid, parathyroid and central and bilateral lateral neck lymph node basins were evaluated. The findings include: Thyroid Isthmus: Thickness: 0.24 cm Nodules: none Right lobe: Lobe: 4.88 x 1.50 x 1.53 cm Nodules: none Left lobe: Lobe: 4.81 x 1.18 x 1.80 cm Nodules: None Just posterior to the left lobe is an oblong hypoechoic structure measuring 2.17 x 0.76 x 1.04cm without calcifications or hypervascularity In the left lower parathyroid location is a hypoechoic nodule measuring 0.74 x 0.56 x 0.57cm Cervical lymph nodes Central neck: Normal ultrasonographic appearing lymph nodes Right lateral neck: Normal ultrasonographic appearing lymph nodes Left lateral neck: Normal ultrasonographic appearing lymph nodes Assessment and Plan: Mr. Pedro Pablo Cortes is a 26 y.o. 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 Since his genetic testing 7-8 years ago, he has had no surveillance. He clearly has hyperparathyroidism, which I explained affects nearly 100% of MEN-1 patients. There is at least one abnormal parathyroid (left lower) visualized on ultrasound and another neck mass posterior to the left thyroid lobe that I suspect is a markedly enlarged left upper parathyroid. No right-sided parathyroids were seen, but I explained that all hyperparathyroidism in MEN-1 is multigland hyperplasia, and he will ultimately need a subtotal parathyroidectomy with bilateral cervical thymectomy. Prior to planning for that operation, however, he needs baseline MEN-1 screening. His headaches and blurry vision is concerning for pituitary pathology, and I recommended a prolactin level and brain MRI. His GERD, need for famotidine, and voice hoarseness raise suspicion for gastrinoma, and his multiple abdominal complaints (while they could reflect hypercalcemia) may also be manifestations of intraabdominal neuroendocrine tumors. I recommended starting with gastrin and chromogranin A levels, and will have a low threshold to follow up with a CT scan and/or EUS. He will have labs done today, and I will order imaging based on what the labs demonstrate and will call him once those are all back to discuss next steps. documented in this encounter Miscellaneous Notes Addendum Note - Siomara Nelson MD - 02/21/2022 2:00 PM EDT Addended by: SIOMARA NELSON on: 02/21/2022 05:04 PM Modules accepted: Orders Addendum Note - Siomara Nelson MD - 02/21/2022 2:00 PM EDT Addended by: SIOMARA NELSON on: 02/22/2022 02:13 PM Modules accepted: Orders documented in this encounter Plan of Treatment Upcoming Encounters Date Type Specialty Care Team Description 03/12/2022 Appointment Radiology Kim Nelson MD [facility] MEDICAL [facility] GENERAL SURGERY [place], [place] [address] (Wo rk) 03/12/2022 Hospital Encounter Radiology Elida Nelson MD [facility] [place], [place] [address] (Wo rk) Scheduled Orders Name Type Priority Associated Diagnoses Order S chedule MRI Pituitary wwo Imaging Routine MEN 1 (multiple Expecte d: 02/21/2022 Contrast endocrine neoplasia) (Approx imate), Expires: 2022 XR Pre MRI Orbits Imaging Routine MEN 1 (multiple Expecte d: 02/22/2022 (Generic) endocrine neoplasia) (Approx imate), Expires: 2022 documented as of this encounter Procedures Procedure Name Priority Date/Time Associated Comments Diagnosis HC PARATHYROID Routine 02/21/2022 3:36 PM MEN 1 (multiple Resu lts for this HORMONE(PTH INTACT EDT endocrine procedure are in neoplasia) the results section. HC VENIPUNCTURE Routine 02/21/2022 3:36 PM MEN 1 (multiple Res ults for this EDT endocrine procedure are i n neoplasia) the results section. HC PROLACTIN ASSAY, Routine 02/21/2022 3:36 PM MEN 1 (multiple Results for this SERUM EDT endocrine procedure are i n neoplasia) the results section. GASTRIN Routine 02/21/2022 3:36 PM Results f or this EDT procedure are i n the results section. BASIC METABOLIC PANEL Routine 02/21/2022 3:36 PM MEN 1 (multip le Results for this (NON-FASTING) EDT endocrine procedure are in neoplasia) the results section. documented in this encounter Results (ABNORMAL) Gastrin (02/21/2022 3:36 PM EDT) P athologist Signature Gastrin 146 (H) pg/mL [facility] Comment: REFERENCE VALUE------ <100 Reference ranges valid for >= 8 hour fast. Test Performed by: [facility] [address] [place] [phone] Chairman President And Chief Executive Officer: Bo Valladares M.D. Ph. D.; CLIA# [id number] Specimen Anatomical Collection Method Collection Time Receive d Time (Source) Location / / Volume Laterality Blood Venous Draw / 02/21/2022 3:36 PM 02/23/20 22 4:21 Unknown EDT PM EDT Resulting Agency Comment Spec In Lab Siomara Nelson MD CHEMISTRY ORDERABLES Performing Organization Address City/State/[place] [address] [facility] [address] Chromogranin A (02/21/2022 3:36 PM EDT) athologist Signature Chromogranin A 81 <93 ng/mL [facility] Comment: ADDITIONAL INFORMATIO N This test was developed and its performa nce characteristics determined by [facility] in a manner co nsistent with CLIA [...] homogeneous time -resolved immunofluorescent assay manufactured by [employer] and performed on the [employer] Comp act Plus. Values obtained with different assay met hods or kits may be different and cannot be used interchange ably. Test results cannot be interpreted as ab solute evidence for the presence or absence of malignant dis ease. Test Performed by: [facility] [address] [place] [id number] [phone] Chairman President And Chief Executive Officer: Bo Valladares M.D. Ph. D.; CLIA# [id number] Specimen Anatomical Collection Method Collection Time Receive d Time (Source) Location / / Volume Laterality Blood 02/21/2022 3:36 PM 2 4:16 EDT PM EDT Resulting Agency Comment Spec In Lab Siomara Nelson MD CHEMISTRY ORDERABLES Performing Organization Address City/[facility]/ZIP Code Phon e Number [address] (ABNORMAL) Prolactin (02/21/2022 3:36 PM EDT) P athologist Signature Prolactin 17.8 (H) 4.0 - 15.2 [facility] ng/mL [facility] Specimen Anatomical Collection Method Collection Time Receive d Time (Source) Location / / Volume Laterality Blood 02/21/2022 3:36 PM 2 3:48 EDT PM EDT Resulting Agency Comment Spec In Lab Siomara Nelson MD CHEMISTRY ORDERABLES Performing Organization Address City/[facility]/[place] [address] (ABNORMAL) Basic Metabolic Panel (non-fasting) (02/21/2022 3:36 PM EDT) P athologist Signature Glucose Lvl 103 65 - 199 [facility] mg/dL [facility] Comment: Diabetes: >=200 mg/dL plus symp toms BUN 11 10 - 20 mg/dL [facility] Creatinine 0.96 0.80 - 1.50 mg/dL [facility] Sodium 136 135 - 145 mmol/L [facility] Potassium 4.1 3.5 - 5.0 mmol/L [facility] Comment: Please note: ??Patients with WBC >100,00 0 may have falsely elevated Potassium levels. ??For accurate Potassium quantif ication in these patients send serum separator tube (gold top) for subsequent determinations. ??Contact the Clinical Chemistry Laboratory if there are any qu estions. Chloride 101 98 - 107 mmol/L [facility] CO2 29 22 - 31 mmol/L [facility] Anion Gap 6 5 - 15 mmol/L [facility] Calcium 11.3 (H) 8.5 - 10.5 mg/dL [facility] Estimated GFR 110 >=60 mL/min/1.73 m?? [facility] Comment: This patient's estimated GFR was [...] Resulting Agency Comment Spec In Lab Siomara Nelson MD CHEMISTRY ORDERABLES Performing Organization Address City/[facility]/ZIP Code Phon e Number [address] (ABNORMAL) PTH (02/21/2022 3:36 PM EDT) P athologist Signature PTH 152 (H) 15 - 65 [facility] pg[facility]mL [facility] Specimen Anatomical Collection Method Collection Time Receive d Time (Source) Location / / Volume Laterality Blood 02/21/2022 3:36 PM 2 3:48 EDT PM EDT Resulting Agency Comment Spec In Lab Siomara Nelson MD CHEMISTRY ORDERABLES Performing Organization Address City/[facility]/[place] [address] documented in this encounter Visit Diagnoses Diagnosis MEN 1 (multiple endocrine neoplasia) Multiple endocrine neoplasia [MEN] type I documented in this encounter Care Teams School Crossing Guard Relationship Specialty Start Date End Date None PCP - General 8/27/22 None documented as of this encounter
--- OUTSIDE RECORDS SUMMARY | 2022-03-07 09:03 | XMS_ITS | Encounter Summary ---
:1995 Author Organization [facility] [place] [address] Care Team Providers Name Role Phone None Primary Care Provider Unavailable Encounter Details Date Type Department Care Team Description 02/26/2022 Interpretation Only [facility] John Tyson, [address] [place] [address] [place] [address] [phone] (Wo rk) Social History Tobacco Use Types Packs/Day Years Used Date Never Smoker Sex Assigned at Date Recorded Not on file documented as of this encounter Plan of Treatment Upcoming Encounters Date Type Specialty Care Team Description 03/12/2022 Appointment Radiology Kim Gorman MD [place], [place] [address] (Wo rk) 03/12/2022 Hospital Encounter Radiology Elida Gorman MD [place], [place] [address] (Wo rk) documented as of this encounter Procedures Procedure Name Priority Date/Time Associated Diagnosis Comme nts XR CHEST ONE VIEW STAT 02/26/2022 12:36 PM Res ults for this EDT procedure are i n the results section. documented in this encounter Results XR Chest One View (02/26/2022 12:36 PM EDT) [facility] Method Time Signature PT CLASS E DH RAD ADMITDTTM [id number] DH RAD PT MARILU TRUJILLO MD INFO [phone]^[facility] LS^KIRT^O EXAM DESC XCXR1^XR Chest 1 [facility] View Portable^RIS Anatomical Region Laterality Modality Chest [...] who have questions please contact the health career resource technician that requested your imaging first. ? Electronically signed by: Monica Morocho, [facility] ([phone]), at 02/26/2022 12:56 PM Procedure Note Stella Dos Santos MD - [...] ho have questions please contact the health career resource technician that requested your imaging first. Electronically signed by: Monica Morocho, [facility] ([phone]), at 02/26/2022 12:56 PM Kirt MORALES IMG DX ORDERABLES documented in this encounter Visit Diagnoses Not on filedocumented in this encounter Care Teams Press Technician Relationship Specialty Start Date End Date None PCP - General 02/09/22 None documented as of this encounter
--- OUTSIDE RECORDS SUMMARY | 2022-03-07 09:03 | XMS_ITS | Encounter Summary ---
:1995 Demographics Home Phone Preferred Language Unknown Marital Status Unknown Synagogue Affiliation Unknown Race Unknown Ethnic Group Unknown Author Organization [facility] Address [address] [place] [address] Care Team Providers Name Role Phone Unavailable Primary Care Provider Unavailable Encounter Details Date Type Department Care Team Description 10/04/2021 Lab Requisition [facility] Outr Resulting Lab, Pathology & Laboratory Provider [facility] [address] [place] [address] Social History Tobacco Use Types Packs/Day Years Used Date Never Assessed Sex Assigned at Date Recorded Not on file documented as of this encounter Plan of Treatment Not on filedocumented as of this encounter Procedures Procedure Name Priority Date/Time Associated Diagnosis Comme nts COVID-19 TEST [facility] Today 10/04/2021 19:02 LAB PCR EDT COVID-19 TESTING Routine 10/04/2021 19:02 Results for this EDT procedure are i n the results section. documented in this encounter Results COVID-19 TEST [facility] LAB PCR (10/04/2021 19:02 EDT) Specimen Swab Performing Organization Address City/State/ZIP Code Phon e Number [facility] [address] [place] [address] SERVICES COVID-19 TESTING (10/04/2021 19:02 EDT) COVID-19 rt-PCR Negative Negative [facility] MEDICAL Result Comment: [facility] This test has not been FDA [...] was performed using the gabriele SARS-CoV-2 assay ([employer] on the Gabriele 6800 System Performing Lab [place]le [address] [facility] Lab [facility] SERVICES Specimen Swab Performing Organization Address City/State/ZIP Code Phon e Number [facility] [address] [phone] SERVICES documented in this encounter Visit Diagnoses Not on filedocumented in this encounter
--- OUTSIDE RECORDS SUMMARY | 2022-03-07 09:03 | XMS_ITS | Continuity of Care Document ---
:1995 Author Organization [facility] Address [address] [place] [address]- Care Team Providers Name Role Phone Jacquie Steward Primary Care Physician Unavailable Encounter BVT Date(s): 01/01/22 - 01/01/[address] [address]- [phone] Discharge Disposition: Home Attending Physician: GLORIA ALEMAN Admitting Physician: GLORIA ALEMAN Results Laboratory List Name Date D-Dimer 01/01/22 Lipid Panel Standard 01/01/22 Most recent to oldest [Reference Range]: 1 D-Dimer [0.000-0.500 FEU ug/mL] 0.560 FEU ug/mL *HI* (01/01/22 8:30 AM) Trig [0.0-149.0 mg/dL] 102.1 mg/dL (01/01/22 8:30 AM) Cholesterol Total [0-200 mg/dL] 144 mg/dL (01/01/22 8:30 AM) HDL Cholesterol [40-60 mg/dL] 47 mg/dL (01/01/22 8:30 AM) LDL Calculated 77 mg/dL *NA* (01/01/22 8:30 AM) Care Team PersonnelName: Jacquie Steward
--- OUTSIDE RECORDS SUMMARY | 2022-03-07 09:03 | XMS_ITS | Encounter Summary ---
:1995 Author Organization [place] [address] Care Team Providers Name Role Phone Porfirio Johnson MD, Manuel Primary Care Provider Reason for Referral Consultation (Routine) - Duplicate Referral Specialty Diagnoses / Procedures Referred By Contact Refer red To Contact General Surgery Diagnoses Hypercalcemia Parathyroid disease Ashley Juan APRN [place]en, Meredith [address] [place], [place] [address] [facility] GENERAL SURGERY [place], [place] [address] Phone: Fax: Referral ID Status Reason Start Expiration Visits Visits Date Date Requested Authorized [id number] Duplicate Consult, 12/05/2021 12/05/2022 1 1 Referral Test & Treat Encounter Details Date Type Department Care Team Description 12/05/2021 Transcribe Orders eDH Incoming Ashley Juan, Hyper calcemia; Referrals RELATIONS MANAGER Parathyroid disease [phone] [place] [address] [place] [address] Social History Tobacco Use Types Packs/Day Years Used Date Never Assessed Sex Assigned at Date Recorded Not on file documented as of this encounter Plan of Treatment Upcoming Encounters Date Type Specialty Care Team Description 03/12/2022 Appointment Radiology Kim Gorman MD [facility] ER GENERAL SURGERY [place], [place] [address] (Wo rk) 03/12/2022 Hospital Encounter Radiology Elida Gorman MD [facility] MEDICAL [facility] GENERAL SURGERY [place], [place] [address] (Wo rk) Scheduled Referrals Name Type Priority Associated Diagnoses Order S chedule Referral to Outpatient Referral Routine Hypercalcemi a Ordered: General Surgery Parathyroid disease 12/05 documented as of this encounter Visit Diagnoses Diagnosis Hypercalcemia Parathyroid disease Unspecified disorder of parathyroid glan d documented in this encounter Care Teams Director Adult Relationship Specialty Start Date End Date Manuel Monroy MD PCP - General 05/08/10 02/08/22 [place] [address] documented as of this encounter
--- OUTSIDE RECORDS SUMMARY | 2022-03-07 09:03 | XMS_ITS | Encounter Summary ---
:1995 Demographics Home Phone Preferred Language Unknown Marital Status Unknown Mandaen Affiliation Unknown Race Unknown Ethnic Group Unknown Author Organization [facility] Address [address] [place] [address] Care Team Providers Name Role Phone Unavailable Primary Care Provider Unavailable Encounter Details Date Type Department Care Team Description 09/19/2021 Lab Requisition [facility] Outr Resulting Lab, Pathology & Laboratory Provider [facility] [address] [place] [address] Social History Tobacco Use Types Packs/Day Years Used Date Never Assessed Sex Assigned at Date Recorded Not on file documented as of this encounter Plan of Treatment Not on filedocumented as of this encounter Procedures Procedure Name Priority Date/Time Associated Diagnosis Comme nts COVID-19 TEST [facility] Today 09/19/2021 12:12 LAB PCR EDT COVID-19 TESTING Routine 09/19/2021 12:12 Results for this EDT procedure are i n the results section. documented in this encounter Results COVID-19 TEST [facility] LAB PCR (09/19/2021 12:12 EDT) Specimen Swab Performing Organization Address City/State/ZIP Code Phon e Number [facility] [address] [place] [address] SERVICES COVID-19 TESTING (09/19/2021 12:12 EDT) COVID-19 rt-PCR Negative Negative [facility] Result Comment: [facility] This test has not been FDA [...] was performed using the gabriele SARS-CoV-2 assay ([employer] on the Gabriele 6800 System Performing Lab [facility] [address] [facility] Lab [facility] SERVICES Specimen Swab Performing Organization Address City/State/ZIP Code Phon e Number [facility] [address] [phone] SERVICES documented in this encounter Visit Diagnoses Not on filedocumented in this encounter
--- OUTSIDE RECORDS SUMMARY | 2022-03-07 09:03 | XMS_ITS | Continuity of Care Document ---
:1995 Author Organization [facility] Address [address] [place] [address]- Care Team Providers Name Role Phone Jacquie Steward Primary Care Physician Unavailable Encounter BVT Date(s): 01/20/22 - 01/20/[address] [address]- [phone] Encounter Diagnosis Depression with suicidal ideation (Discharge Diagnosis) - 01/20/22 Discharge Disposition: Home or Self Care Attending Physician: MACHELLE LUNSFORD Admitting Physician: MACHELLE LUNSFORD Allergies, Adverse Reactions, Alerts Substance Reaction Severity Status codeine1 Severe Active 1I pass out Assessment and Plan Extracted from: Title: General Medical Problem *ED Author: MACHELLE LUNSFORD Date: 01/20/22 History of Present Illness The patient presents with Depression wit h RADHARubia Chamorro is a 26-year-old male with a history of depression, PTSD, anxiety, prior suicide attempt, who presents emergency department via private vehicle with r eport of increasing depression with suic idal ideation. He denies current plan, but in the past has had thoughts of hanging himself. He was recent released from [facility] after a month of hospi talization last week. He states his symp toms have been increasing daily since and he does not feel safe, feels these to be back at the [facility]. Pedro Pablo denies any recent injury or illnes s. He has had no fevers, chills, episodes of sweating. He denies any cough, sinus congestion, or sore throat. He has no current headache. He denies feelings of di zziness. He has no pain in his neck, amie k, chest, or abdomen. He denies any trouble breathing. He is had no nausea, vomiting, diarrhea. Denies any urinary symptoms. New Past medical history: Femur fracture PTSD Depression Anxiety Prior suicide attempt Past surgical history: Femur repair Home Medications (7) Active busPIRone 20 mg, Oral, TID cloNIDine 0.1 mg oral tablet 0.1 mg = 1 tab(s), Oral, Daily famotidine 20 mg oral tablet FLUoxetine 60 mg oral tablet 60 mg = 1 t ab(s), Oral, Daily gabapentin 300 mg oral capsule 300 mg = 1 cap(s), TID senna 8.6 mg oral tablet 17.2 mg = 2 tab (s), Once a day (at bedtime) traZODone 100 mg oral tablet 100 mg = 1 tab(s), Once a day (at bedtime) Allergies: codeine Social history: Pedro Pablo does not smoke cigarettes. He does not drink alcohol. He does not use illicit drugs. His roommate drove him to the hospital today. He reports he is currently unemployed. He is receiving disability from the [employer]. 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 Review of Systems Constitutional symptoms: No fever, no ch ills, no sweats. ENMT symptoms: No sore throat, no nasal congestion. Respiratory symptoms: No shortness of br eath, no cough. Cardiovascular symptoms: No chest pain, Gastrointestinal symptoms: No abdominal pain, no nausea, no vomiting, no diarrhea. Genitourinary symptoms: No urinary urgen cy, frequency, or dysuria. There is no current hematuria.. Musculoskeletal symptoms: No neck pain., No back pain, Neurologic symptoms: No headache, no diz ziness. Psychiatric symptoms: Anxiety, depressio n, suicidal. Health Status Allergies: Allergic Reactions (Selected) Severe [...] . Physical Examination Vital Signs Vital Signs 01/20/2022 10:32 EDT Temperature Temporal Artery 37.1 DegC Peripheral Pulse Rate 76 bpm Respiratory Rate 18 br/min Systolic Blood Pressure 115 mmHg Diastolic Blood Pressure 76 mmHg SpO2 96 % . General: Alert, no acute distress, Pedro Pablo is sitting on the examination stretcher. He is awake and alert. His skin is warm and dry. His respirations are even and unlabored. He is conversant, able speak i n full sentences and currently appears t o be in no acute distress.. Skin: Warm, dry. Head: Normocephalic. Neck: Supple. Eye: Pupils are equal, round and reactiv e to light, extraocular movements are intact, normal conjunctiva. Cardiovascular: Regular rate and rhythm, No murmur, Normal peripheral perfusion. Respiratory: Lungs are clear to ausculta tion, respirations are non-labored, breath sounds are equal. Gastrointestinal: Soft, Nontender. Musculoskeletal: Normal ROM. Neurological: Alert and oriented to pers on, place, time, and situation, No focal neurological deficit observed, normal sensory observed, normal motor observed, normal speech observed, normal coordination observed. Psychiatric: Cooperative, appropriate mo od & affect. Medical Decision Making Rationale: Pleasant 26-year-old male wit history of PTSD, chronic anxiety, depression, prior suicidal ideation [facility]. Patient been fe eling increasingly depressed, unsafe wit h increasing suicidal ideations self presents for voluntary readmission to the retreat. He is currently calm and cooperative. He has had no recent injury or medic al illness. He is cleared through [facility] medical clearing. Consultation with [facility]CRS has been requested and is pending.. Documents reviewed: Emergency department nurses' notes. Reexamination/ Reevaluation Notes: Pedro Pablo has been screened by Skyler PATEL. Plan is for admission, patient is voluntary. No bed available for the foreseeable future. Patient would prefer to wait at home. He denies suicidal plan or intent and expresses capacity to return. Skyler PATEL has drafted a treatment plan. Is felt patient is safe for discharge no indication for involuntary admission. I reviewed general illness management with Pedro Pablo jerad luding return precautions to the emergen cy department. Plan at this time is for discharge home.. Impression and Plan Diagnosis Depression with suicidal ideation (ICD10 -CM F32.A, Discharge, Medical) Plan Condition: Stable. Disposition: Discharged: to home. Patient was given the following educatio nal materials: Suicidal Feelings: How to Help Yourself. Follow up with: ; Follow up with primary care provider Follow treatment plan as outlined by HCRS Please return directly to the emergency department should any of your symptoms change or worsen.. Counseled: Patient, Regarding diagnosis, Regarding diagnostic results, Regarding treatment plan, Regarding prescription, Patient indicated understanding of instructions. Functional Status 01/20/22 History of Fall in Last 3 Months Holly No Recent Travel History No recent travel Family Member Travel History No recent travel COVID-19 Screening None Medications busPIRone 20 mg, Oral, TID, 0 Refill(s) Start Date: 01/20/22 Status: OrderedcloNIDine 0.1 mg oral tablet 0.1 [...] Start Date: 01/20/22 Status: Ordered Mental Status 01/20/22 Level of Consciousness Alert Results Laboratory List Name Date SARS-CoV-2 (COVID-19) PCR ([facility]) 01/20/22 Most recent to oldest [Reference Range]: 1 SARS-CoV-2 (COVID-19) PCR ([facility]pert) [Negative] Negat alvarez (01/20/22 2:06 PM) Employed in healthcare? No *NA* (01/20/22 2:06 PM) Symptomatic as defined by CDC? No *NA* (01/20/22 2:06 PM) Hospitalized due to COVID-19? No *NA* (01/20/22 2:06 PM) In ICU? No *NA* (01/20/22 2:06 PM) Group care resident? No *NA* (01/20/22 2:06 PM) status? Not *NA* (01/20/22 2:06 PM) Vital Signs Most recent to oldest [Reference Range]: 1 Temperature Temporal Artery [36.3-37.8 DegC] 37.1 DegC (01/20/22 10:32 AM) Peripheral Pulse Rate [60-100 bpm] 76 bpm (01/20/22 10:32 AM) Respiratory Rate [14-20 br/min] 18 br/min (01/20/22 10:32 AM) Blood Pressure [90-140/60-90 mmHg] 115/76 mmHg (01/20/22 10:32 AM) SpO2 [92-100 %] 96 % (01/20/22 10:32 AM) Height/Length Estimated 175.000 cm (01/20/22 10:32 AM) Height/Length Dosing 175.000 cm (01/20/22 10:42 AM) Weight Estimated 99.790 kg (01/20/22 10:32 AM) Weight Dosing 99.790 kg (01/20/22 10:42 AM) Social History Social History Type Response Tobacco Never tobacco user Tobacco U se:. Sex Hospital Discharge Instructions Patient Duoddnmss30/07/2022 17:09:17Suicidal Feelings: How to Help Yourself Suicidal Feelings: [...] services (911 in the [place] ??? The [facility] and human services helpline (211 in the [place] ??? Go to your nearest emergency department. ??? Call a suicide hotline to speak with a trained counselor. The following suicide hotlines are available in the [place]: ??? 1-559-351-TALK ( ). ??? 9-625-EYVCUBB ( ). ??? . This is a hotline for Uzbek speakers. ??? . This is a hotline for TTY users. ??? 8-481-9-U-JUAN C ( ). This is a hotline for lesbian, olsen, bisexual, transgender, orquestioning youth. ??? For a list of hotlines in [place], visit www.suicide.org/hotlines/international/oakzen-dlkszce-izmdtkii.html ??? Contact a crisis center or a [...] list of crisis centers in [place], visit: suicideprevention.pa How to help yourself feel better ??? [...] even if you do not feel sociable. Rqat-pt-vysm conversation is best to help them understand [...] can help you feel better. ??? Take hrob-hvg-wytfhlj and prescription medicines only as told by [...] Prevention Lifeline: www.suicidepreventionlifeline.org ??? Hopeline: www.hopeline.com ??? [employer] Foundation for Suicide Prevention: www.afsp.org ??? The Juan C Project (for lesbian, olsen, bisexual, transgender, or questioning youth): www.theMedboxvorproject.org ??? National [place] of Mental Health: https://www.nimh.nih.gov/health/topics/suicide-prevention Contact a health [...] provider. Document Revised: 02/14/2021 Document Reviewed: 02/16/2021 [employer] Patient Education ?? 2021 [employer] Follow Up Care01/20/2022 10:22:51With:Follow up with primary care provider Address:Unknown When: Unknown Comments:Follow treatment plan as outlined by HCRS Please return directly to the emergency department should any of your symptoms change or worsen. Care Team PersonnelName: Jacquie Steward
== END ==
PROVIDERS: PCP Family Medicine; Visit Provider Physician Assistant
DX: R93.89 Abnormal findings on diagnostic imaging of other specified body structures (principal)
CPT/HCPCS: 76705

== ENCOUNTER 2022-03-07 13:00 | Emergency (ER) | payer MEDICAID, SELFPAY ==
[2022-03-07 13:08] VITALS: BP 127/70; PULSE 90; RESP 18; TEMP 36.8; O2SAT 100
--- NOTE | 2022-03-07 13:17 | ED.GENADUL_ITS ---
Discharge Plan Disposition Patient Disposition: HOME Condition: Improving Discharge Details Chief Complaint: Recheck Clinical Impression: Abdominal pain Primary Care Provider: Brendon Vivar ED Provider: Crow Gama Home Meds and New Rx's Prescriptions: No Action methadone 10 mg/5 mL solution 110 mg PO QAM trazodone 50 mg tablet 50 mg PO QHS PRN (Reason: sleep) Qty: 30 0RF magnesium citrate Solution 300 ml PO ONCE Qty: 296 0RF Rx Instructions: as a single dose buspirone 10 mg tablet 20 mg PO QAM sennosides [senna] 8.6 mg tablet PO DAILY Label Comments: TAKE TWO TABLETS BY MOUTH AT BEDTIME gabapentin 300 mg capsule 600 mg PO TID Label Comments: TAKE ONE CAPSULE BY MOUTH EVERY 6 HOURS NEEDED NOT TO EXCEED 2 IN 24 HOURS Discharge Instructions Referrals: Brendon Vivar, [Primary Care Provider] - Return if symptoms worsen Discharge Data Discharge Date/Time-TO BE ENTERED AT DEPARTURE: 03/07/22 13:56 Medical Decision Making Patient presenting to the emergency department for follow-up on his ultrasound. Patient states improvement of symptoms after starting to have BMs. I feel that this may be due to patient methadone. Reviewed ultrasound imaging and radiologist interpretation that shows mild dilation of the common bile duct but has been stable since earlier this year. Given that patient is improving I do feel that discharge disposition is appropriate and patient was instructed on return and follow-up precautions. Did discuss with patient possible consideration of starting to taper off of methadone as he states he has been on this for years and has not had any issues with opioid abuse. Informed him to follow-up with his primary care to further discuss this after discussion of diagnosis and plan of care patient has no further needs, questions, or concerns and states clear understanding to return to the emergency department for any worsening symptoms. This documentation was generated using [employer] dictation system, please disregard any oddities of phrase or misspellings. Imaging Data Radiologic Study: Attestation: I personally reviewed and interpreted this imaging study as follows: Imaging: Ultrasound Radiologist's impression: FINDINGS: LIVER: Normal size and echogenicity. No focal liver lesions are seen.. Left lobe of the liver was partially obscured by bowel gas. GALLBLADDER: No evidence of cholelithiasis. No evidence of wall thickening. No pericholecystic fluid identified. GUERRA'S SIGN: Negative. BILIARY SYSTEM: The common bile duct is measured at 10 millimeters, dilated for the patient's age. The biliary dilatation appears stable since at least since June of 2021. The entire length of the common bile duct was not well seen due to bowel gas. No intrahepatic biliary ductal dilation. RIGHT KIDNEY: Normal size. No evidence of renal calculi. No evidence of hyd ronephrosis. No suspicious renal mass. No cyst identified. PANCREAS: Normal where visualized. Partially obscured by bowel gas. ABDOMINAL AORTA AND IVC: Visualized portions normal caliber. ASCITES: None seen. IMPRESSION: Mild dilatation of the common bile duct, stable compared to prior CT of June 2021 HPI General Mode of arrival: ambulatory . Date/Time Provider Initiated Documentation: 03/07/22 13:05 . Limitations to Documentation: no limitations . Information obtained by: patient, RN notes reviewed and old records reviewed . History of Present Illness 26 year old M presents to the emergency department with the chief complaint of abd pain , described as mild and similar to prior episodes, with intensity rated at 3. Quality is described as aching, and is localized to the abdomen. Patient reports no radiation. and it has been other (improving after BM). No exacerbating factors reported . Patient notes no other symptoms.. Patient did receive the following treatments prior to arrival, other (OTC laxitives) Related Data Home Medications Medication Instructions Recorded Confirmed trazodone 50 mg tablet 50 mg PO QHS PRN sleep #30 tabs 10/25/21 03/08/22 methadone 10 mg/5 mL oral solution 110 mg PO QAM 11/16/21 03/08/22 buspirone 10 mg tablet 20 mg PO QAM 12/01/21 03/06/22 gabapentin 300 mg capsule 600 mg PO TID 12/20/21 03/08/22 sennosides 8.6 mg tablet (senna) tab PO DAILY 12/20/21 magnesium citrate 300 ml PO ONCE #296 mL 03/08/22 03/08/22 Previous Rx's Medication Instructions Recorded trazodone 50 mg tablet 50 mg PO QHS PRN sleep #30 tabs 10/25/21 magnesium citrate 300 ml PO ONCE #296 mL 03/08/22 Allergies Allergy/AdvReac Type Severity Reaction Status Date / Time codeine Allergy Intermediate Verified 03/08/22 12:05 General Stated Complaint: Recheck ADRIANA: 5 Review of Systems Narrative: 6 systems reviewed and unremarkable except what is marked below. Gastrointestinal Gastrointestinal: Reports as per HPI, Reports abdominal pain, Reports constipation, Denies diarrhea and Denies vomiting PFSH All Active Problems (Updated 03/11/22 @ 13:52 by Crow Gama NP) Abdominal pain (Acute) Abdominal pain (Acute) Abdominal pain (Acute) Anxiety (Chronic) Depression (Chronic) Depression (Chronic) Suicidal ideation (Acute) Elevated parathyroid hormone (Acute) Hyperlipidemia (Acute) Family history of coronary arteriosclerosis (Chronic) Father of NE at 50, mother had NE at 42 Family history of multiple endocrine neoplasia, type 1 (Acute) Severe anxiety with panic (Acute) Hypercalcemia (Acute) PTSD (post-traumatic stress disorder) (Acute) Cellulitis (Acute) Medical History Anxiety in acute stress reaction Cocaine use Surgical History No significant past surgical history Family History Mother Anxiety Asthma Depression Sister Anxiety Depression Father Cancer lung & stomach Depression Diabetes Hypertension MEN 1 (multiple endocrine neoplasia) Social History Smoking/Tobacco Use Status: Never Smoking risk assessment performed?: Yes Alcohol Intake: never Drug use: Current 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: 1 month clean Adopted: No Caregiver/Support person: No Foster care: No Household members: none Housing: house Number of Children: 0 Communication Needs: None Education Level: high school Do you need help understanding health information?: Never 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 and animals: Yes (Ally) Pets and animals: dog(s) Sexually active: No Do you think of yourself as: straight/heterosexual Current gender identity: male What is your relationship status?: How often do you talk on the phone with friends or family?: twice per week How often do you get together with friends or relatives?: never Do you belong to any clubs or organized social groups?: no Panel score (0-1 are the most socially isolated patients): 0 What type of physical activity do you participate in: walking Duration: 15-30 minutes/day Frequency: 5-6 times per week Maryam/Scientology: Synagogue Special maryam needs: No Seatbelt use: always Helmet use: Yes Helmet use: always Drive 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 driver license examiner: No Do you feel safe at home: Yes Do you feel safe in your relationship?: Yes Exam Const General: cooperative Orientation: alert, awake and oriented x3 Resp Effort & Inspection: normal respiratory effort and able to speak in complete sentences GI Palpation: soft, no hepatosplenomegaly, not firm, no guarding, no masses, no pulsatile masses, not rigid and no splenomegaly Auscultation: normal bowel sounds Back/Spine/Pelvis Back: no CVA tenderness Neuro General: patient alert, patient awake, patient oriented x3, gait normal and moves all extremities Course Vital Signs Vital signs: Vital Signs Temperature 36.8 C 03/07/22 13:08 Pulse 90 03/07/22 13:08 Respiratory Rate 18 03/07/22 13:08 Blood Pressure 127/70 03/07/22 13:08 Pulse Oximetry 100 03/07/22 13:08 Temperature 36.8 C 03/07/22 13:08 Temperature Source Temporal Artery Scan 03/07/22 13:08 Pulse 90 03/07/22 13:08 Respiratory Rate 18 03/07/22 13:08 Blood Pressure 127/70 03/07/22 13:08 Blood Pressure Position Sitting 03/07/22 13:08 Pulse Oximetry 100 03/07/22 13:08 Oxygen Delivery Method Room Air 03/07/22 13:08 Oxygen Flow Rate 0 03/07/22 13:08
== END 2022-03-07 13:56 | disposition home or self-care (01) ==
LOC: ER 13:10
PROVIDERS: Emergency Provider Nurse Practitioner Family; PCP Family Medicine
DX: R10.9 Unspecified abdominal pain (principal)
CPT/HCPCS: 99281; 99282

== ENCOUNTER 2022-03-08 07:36 | Emergency (ER) | payer OTHER, MEDICAID, SELFPAY ==
[2022-03-08 07:44] VITALS: BP 124/82; PULSE 81; RESP 17; TEMP 37.1; O2SAT 99
[2022-03-08] MEDS: Simethicone 80 MG CHEW 40 MG PO (08:32)
--- NOTE | 2022-03-09 09:42 | ED.GENADUL_ITS ---
Discharge Plan Disposition Patient Disposition: HOME Condition: Stable Discharge Details Clinical Impression: Abdominal pain Primary Care Provider: Brendon Vivar ED Provider: Luh Tsai Home Meds and New Rx's Prescriptions: New magnesium citrate Solution 300 ml PO ONCE Qty: 296 0RF Rx Instructions: as a single dose Continued methadone 10 mg/5 mL solution 110 mg PO QAM trazodone 50 mg tablet 50 mg PO QHS PRN (Reason: sleep) Qty: 30 0RF buspirone 10 mg tablet 20 mg PO QAM sennosides [senna] 8.6 mg tablet PO DAILY Label Comments: TAKE TWO TABLETS BY MOUTH AT BEDTIME gabapentin 300 mg capsule 600 mg PO TID Label Comments: TAKE ONE CAPSULE BY MOUTH EVERY 6 HOURS NEEDED NOT TO EXCEED 2 IN 24 HOURS Discharge Instructions Instructions: Constipation (ED), High Fiber Diet (ED), Abdominal Pain (ED), Fleet Enema (ED) Additional Instructions: continue with your meds take the magnesium citrate glycerin 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 gas-x for your discomfort sit in a warm bath and light massage to abdomen may try a fleet enema if this is ineffective recommend colonoscopy and further assessment with pcp with persistent constipation Referrals: Brendon Vivar DO [Primary Care Provider] - Discharge Data Discharge Date/Time-TO BE ENTERED AT DEPARTURE: 03/08/22 09:43 Medical Decision Making Patient have significant stool burden on his last CT scan which was performed 48 hours prior to this assessment and had ultrasound that did not show evidence of acute abnormality 24 hours prior to assessment, I see no clear indication for repeat CT imaging, patient also has had 2 sets of blood work that did not show evidence of acute abnormality I see no indication to repeat blood work at this time as patient is he has not changed I will give patient prescription for magnesium citrate as he prefers both of her enema at this time in an attempt to alleviate his stool burden He is discharged home in stable condition with Medical Records Medical records reviewed: Yes I reviewed the patient's medical records. Lab Data Lab results reviewed: Yes I reviewed the patient's lab results. HPI General Date/Time Provider Initiated Documentation: 03/08/22 07:36 . HPI Narrative: This 26-year-old gentleman with history of cocaine use and methadone dependence, anxiety, chronic chest pain presents with report of abdominal pain. (Third visit to the emergency department for similar complaint. He states he had both CT scan and ultrasound or work-up that did not show acute abnormality. He is presenting secondary to persistent he states he has not been able to move his bowels for the past month. He suspects is secondary to methadone she is on been on for approximately a year. She denies any relapse of IV drug abuse or cocaine use. She denies any fever or chills. He does take [id number] laxatives which have been ineffective. He states the pain is persistent but not necessarily worsening. He describes the pain as sharp. He states they feel like gas pains . He denies any intra-abdominal surgeries. Denies prior history of bowel obstruction. Related Data Home Medications Medication Instructions Recorded Confirmed trazodone 50 mg tablet 50 mg PO QHS PRN sleep #30 tabs 10/25/21 03/08/22 methadone 10 mg/5 mL oral solution 110 mg PO QAM 11/16/21 03/08/22 buspirone 10 mg tablet 20 mg PO QAM 12/01/21 03/06/22 gabapentin 300 mg capsule 600 mg PO TID 12/20/21 03/08/22 sennosides 8.6 mg tablet (senna) tab PO DAILY 12/20/21 magnesium citrate 300 ml PO ONCE #296 mL 03/08/22 03/08/22 Previous Rx's Medication Instructions Recorded trazodone 50 mg tablet 50 mg PO QHS PRN sleep #30 tabs 10/25/21 magnesium citrate 300 ml PO ONCE #296 mL 03/08/22 Allergies Allergy/AdvReac Type Severity Reaction Status Date / Time codeine Allergy Intermediate Verified 03/08/22 12:05 General Stated Complaint: Abd Prob ADRIANA: 3 Review of Systems All systems reviewed & are unremarkable except as noted in HPI and below PFSH All Active Problems (Updated 03/08/22 @ 16:01 by ANDREW Arriaga) Abdominal pain (Acute) Abdominal pain (Acute) Abdominal pain (Acute) Anxiety (Chronic) Depression (Chronic) Depression (Chronic) Suicidal ideation (Acute) Elevated parathyroid hormone (Acute) Hyperlipidemia (Acute) Family history of coronary arteriosclerosis (Chronic) Father of [place] at 50, mother had [place] at 42 Family history of multiple endocrine neoplasia, type 1 (Acute) Severe anxiety with panic (Acute) Hypercalcemia (Acute) PTSD (post-traumatic stress disorder) (Acute) Cellulitis (Acute) Medical History Anxiety in acute stress reaction Cocaine use Surgical History No significant past surgical history Family History Mother Anxiety Asthma Depression Sister Anxiety Depression Father Cancer lung & stomach Depression Diabetes Hypertension MEN 1 (multiple endocrine neoplasia) Social History Smoking/Tobacco Use Status: Never Smoking risk assessment performed?: Yes Alcohol Intake: never Drug use: Current 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: 1 month clean Adopted: No Caregiver/Support person: No Foster care: No Household members: none Housing: house Number of Children: 0 Communication Needs: None Education Level: high school Do you need help understanding health information?: Never 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 and animals: Yes (Ally) Pets and animals: dog(s) Sexually active: No Do you think of yourself as: straight/heterosexual Current gender identity: male What is your relationship status?: How often do you talk on the phone with friends or family?: twice per week How often do you get together with friends or relatives?: never Do you belong to any clubs or organized social groups?: no Panel score (0-1 are the most socially isolated patients): 0 What type of physical activity do you participate in: walking Duration: 15-30 minutes/day Frequency: 5-6 times per week Maryam/Restorationism: Mormon Special maryam needs: No Seatbelt use: always Helmet use: Yes Helmet use: always Drive 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 lumber 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 Exam Const General: cooperative, comfortable and no acute distress Eyes Sclera: sclerae normal Resp Effort & Inspection: normal respiratory effort Cardio Rate: regular rate GI Inspection: normal to inspection Other: Mild diffuse tenderness without rebound or guarding Skin General skin exam: no rashes or lesions noted Neuro General: patient alert and patient oriented x3 Extrem General: normal to inspection Other: No calf swelling or tenderness Course Vital Signs Vital signs: Vital Signs Temperature 37.1 C 03/08/22 07:44 Pulse 81 03/08/22 07:44 Respiratory Rate 17 09/23/22 07:44 Blood Pressure 124/82 03/08/22 07:44 Pulse Oximetry 99 03/08/22 07:44 Temperature 37.1 C 03/08/22 07:44 Temperature Source Temporal Artery Scan 03/08/22 07:44 Pulse 81 03/08/22 07:44 Respiratory Rate 17 03/08/22 07:44 Respiratory Effort Non-Labored 03/08/22 08:24 Blood Pressure 124/82 03/08/22 07:44 Blood Pressure Position Sitting 03/08/22 07:44 Pulse Oximetry 99 03/08/22 07:44 Oxygen Delivery Method Room Air 03/08/22 07:44 Oxygen Flow Rate 0 03/08/22 07:44 Pain Level 8 03/08/22 07:44
== END 2022-03-08 09:43 | disposition home or self-care (01) ==
PROVIDERS: Emergency Provider Physician Assistant; PCP Family Medicine
DX: R10.84 Generalized abdominal pain (principal)
CPT/HCPCS: 99283; 74022; 99282; 99284

== ENCOUNTER 2022-03-08 11:56 | Emergency (ER) | payer MEDICAID, SELFPAY ==
[2022-03-08 12:01] VITALS: BP 111/75; PULSE 72; RESP 18; TEMP 36.8; O2SAT 96
--- NOTE | 2022-03-08 12:30 | DI.RAD_ITS ---
Exam(s) XR ABD FLAT UPRIGHT PA CHEST CLINICAL HISTORY: abdominal pain, no bm for 3 weeks. COMPARISON: No exams were available for comparison FINDINGS: LUNGS: Clear. No pleural abnormality seen. HEART: Normal. MEDIASTINUM: Normal. BOWEL GAS PATTERN: Nondistended bowel loops. No air-fluid levels seen. ABNORMAL COLLECTIONS OF AIR: No abnormal collection of air. No pneumoperitoneum. CALCIFICATIONS: None. No radiopaque renal, ureteral, or bladder calcification. OTHER FINDINGS: None. IMPRESSION: 1. Nonobstructive bowel gas pattern. 2. No acute pulmonary findings.
--- NOTE | 2022-03-08 16:03 | W.ED.GENAD ---
Discharge Plan Disposition Patient Disposition: HOME Condition: Stable Discharge Details Clinical Impression: Abdominal pain Primary Care Provider: Brendon Vivar ED Provider: Luh Tsai Home Meds and New Rx's Prescriptions: Continued methadone 10 mg/5 mL solution 110 mg PO QAM trazodone 50 mg tablet 50 mg PO QHS PRN (Reason: sleep) Qty: 30 0RF magnesium citrate Solution 300 ml PO ONCE Qty: 296 0RF Rx Instructions: as a single dose buspirone 10 mg tablet 20 mg PO QAM sennosides [senna] 8.6 mg tablet PO DAILY Label Comments: TAKE TWO TABLETS BY MOUTH AT BEDTIME gabapentin 300 mg capsule 600 mg PO TID Label Comments: TAKE ONE CAPSULE BY MOUTH EVERY 6 HOURS NEEDED NOT TO EXCEED 2 IN 24 HOURS Discharge Instructions Instructions: Abdominal Pain (ED) Additional Instructions: Add MiraLAX to her regimen Increase fluids Prune juice daily and increase fiber in your diet Recommend outpatient follow-up with primary care physician and colonoscopy should you continue to have symptoms Referrals: Brendon Vivar DO [Primary Care Provider] - Discharge Data Discharge Date/Time-TO BE ENTERED AT DEPARTURE: 03/08/22 16:05 Medical Decision Making Secondary to recurrent visits and lack of bowel evacuation with at home meds, enema was performed with good effect, patient reports marked improvement in symptoms Return precautions discussed and patient expressed understanding, discharged home in stable condition with stable vitals and exam Medical Records Medical records reviewed: Yes I reviewed the patient's medical records. Lab Data Lab results reviewed: Yes I reviewed the patient's lab results. HPI General Date/Time Provider Initiated Documentation: 03/08/22 12:10. HPI Narrative: This 26-year-old male with frequent visits to the emergency department presents with report of persistent abdominal pain. He has evaluated in the emergency department just prior to recurrent assessment and states that he utilize the medications instructed now presenting secondary to persistent pain. Has not had bowel movement for approximately a month per patient. Is on methadone therapy. Denies any nausea or vomiting. Describes persistent colicky abdominal pain. Denies any fever or chills. Did take magnesium citrate just prior to arrival without bowel movement per patient. Related Data Home Medications Medication Instructions Recorded Confirmed trazodone 50 mg tablet 50 mg PO QHS PRN sleep #30 tabs 10/25/21 03/08/22 methadone 10 mg/5 mL oral solution 110 mg PO QAM 11/16/21 03/08/22 buspirone 10 mg tablet 20 mg PO QAM 12/01/21 03/06/22 gabapentin 300 mg capsule 600 mg PO TID 12/20/21 03/08/22 sennosides 8.6 mg tablet (senna) tab PO DAILY 12/20/21 magnesium citrate 300 ml PO ONCE #296 mL 03/08/22 03/08/22 Previous Rx's Medication Instructions Recorded trazodone 50 mg tablet 50 mg PO QHS PRN sleep #30 tabs 10/25/21 magnesium citrate 300 ml PO ONCE #296 mL 03/08/22 Allergies Allergy/AdvReac Type Severity Reaction Status Date / Time codeine Allergy Intermediate Verified 03/08/22 12:05 General Stated Complaint: Abd Prob ADRIANA: 3 Review of Systems All systems reviewed & are unremarkable except as noted in HPI and below PFSH All Active Problems (Updated 03/08/22 @ 16:01 by ANDREW Arriaga) Abdominal pain (Acute) Abdominal pain (Acute) Abdominal pain (Acute) Anxiety (Chronic) Depression (Chronic) Depression (Chronic) Suicidal ideation (Acute) Elevated parathyroid hormone (Acute) Hyperlipidemia (Acute) Family history of coronary arteriosclerosis (Chronic) Father of [place] at 50, mother had [place] at 42 Family history of multiple endocrine neoplasia, type 1 (Acute) Severe anxiety with panic (Acute) Hypercalcemia (Acute) PTSD (post-traumatic stress disorder) (Acute) Cellulitis (Acute) Medical History Anxiety in acute stress reaction Cocaine use Surgical History No significant past surgical history Family History Mother Anxiety Asthma Depression Sister Anxiety Depression Father Cancer lung & stomach Depression Diabetes Hypertension MEN 1 (multiple endocrine neoplasia) Social History Smoking/Tobacco Use Status: Never Smoking risk assessment performed?: Yes Alcohol Intake: never Drug use: Current 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: 1 month clean Adopted: No Caregiver/Support person: No Foster care: No Household members: none Housing: house Number of Children: 0 Communication Needs: None Education Level: high school Do you need help understanding health information?: Never 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 and animals: Yes (Ally) Pets and animals: dog(s) Sexually active: No Do you think of yourself as: straight/heterosexual Current gender identity: male What is your relationship status?: How often do you talk on the phone with friends or family?: twice per week How often do you get together with friends or relatives?: never Do you belong to any clubs or organized social groups?: no Panel score (0-1 are the most socially isolated patients): 0 What type of physical activity do you participate in: walking Duration: 15-30 minutes/day Frequency: 5-6 times per week Maryam/Confucianism: Moravian Special maryam needs: No Seatbelt use: always Helmet use: Yes Helmet use: always Drive 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 Exam Const General: cooperative, comfortable and no acute distress Resp Effort & Inspection: normal respiratory effort Cardio Rate: regular rate GI Inspection: normal to inspection Other: tenderness generalized without rebound or guarding Skin General skin exam: no rashes or lesions noted Neuro General: patient alert Course Vital Signs Vital signs: Vital Signs Temperature 36.8 C 03/08/22 12:01 Pulse 72 03/08/22 12:01 Respiratory Rate 18 03/08/22 12:01 Blood Pressure 111/75 03/08/22 12:01 Pulse Oximetry 96 03/08/22 12:01 Temperature 36.8 C 03/08/22 12:01 Temperature Source Temporal Artery Scan 03/08/22 12:01 Pulse 72 03/08/22 12:01 Respiratory Rate 18 03/08/22 12:01 Respiratory Effort Non-Labored 03/08/22 12:05 Blood Pressure 111/75 03/08/22 12:01 Blood Pressure Position Sitting 03/08/22 12:01 Pulse Oximetry 96 03/08/22 12:01 Oxygen Delivery Method Room Air 03/08/22 12:01 Oxygen Flow Rate 0 03/08/22 12:01
[2022-03-08 16:05] VITALS: BP 111/75; PULSE 72; RESP 18; TEMP 36.8; O2SAT 96
== END 2022-03-08 16:05 | disposition home or self-care (01) ==
PROVIDERS: Emergency Provider Physician Assistant; PCP Family Medicine
DX: R10.84 Generalized abdominal pain (principal)
CPT/HCPCS: 99283; 74022; 99282

== ENCOUNTER 2022-03-13 18:07 | Emergency (ER) | payer MEDICAID, SELFPAY ==
[2022-03-13 18:12] VITALS: BP 120/67; PULSE 91; RESP 22; TEMP 37.3; O2SAT 100
[2022-03-13 19:03] LABS: Abs Immature Grans 0.02 10^3/uL (0.0-0.06); Absolute Basophil Count 0.05 10^3/uL (0.0-0.2); Absolute Eosinophil Count 0.13 10^3/uL (0.0-0.7); Absolute Monocyte Count 1.14 10^3/uL (0.1-0.8); Absolute Neutrophil Count 5.78 10^3/uL (1.2-6.7); Basophils % 0.5; Eosinophils % 1.2; HCT 39.3 % (40.0-50.0); HGB 13.6 g/dL (13.5-17.5); Immature Grans % 0.2; Lymphocytes % 32.3; MCH 30.5 pg (27.0-33.0); MCHC 34.6 % (32.0-36.0); MCV 88 fL (80-95); MPV 11.3 fL (8.0-11.0); Monocytes % 10.8; Platelet Count 263 10^3/uL (130-400); RBC 4.46 10^6/uL (4.36-5.78); RDW 11.9 % (11.8-14.1); RDW-SD 38.1 fL; WBC 10.52 10^3/uL (4.4-10.8)
[2022-03-13] MEDS: ACETAMINOPHEN 1,000 MG/100 ML BTL 400 MG IVPB (19:13)
[2022-03-13] MEDS: Normal Saline 1,000 ML 1000 ML IV ×2 (19:14→20:26)
[2022-03-13 19:28] LABS: ALT 19 U/L (16-63); AST 17 U/L (15-37); Albumin 4.2 g/dL (3.4-5.0); Alkaline Phosphatase 133 U/L (46-116); Anion Gap 5.5 mmol/L (3-11); BUN 9 mg/dL (7-18); Bilirubin, Total 0.6 mg/dL (0.2-1.0); CO2 30.5 mmol/L (21.0-32.0); Chloride 103 mmol/L (98-107); Estimated GFR 105.14 (mL/min/1.73m2); Glucose 100 mg/dL (74-106); Lipase 80 U/L (73-393); Sodium 139 mmol/L (136-145); Total Protein 7.9 g/dL (6.4-8.2)
[2022-03-13 19:32] LABS: Bilirubin Negative (Negative); Blood Trace-intact (Negative); Clarity Clear (Clear); Glucose Negative (Negative); Ketones Negative (Negative); Leukocyte Esterase Negative (Negative); Nitrite Negative (Negative)
--- NOTE | 2022-03-13 19:33 | W.ED.GENAD ---
Discharge Plan Disposition Patient Disposition: HOME Condition: Good Discharge Details Clinical Impression: Hypercalcemia, Abdominal pain Primary Care Provider: Brendon Vivar ED Provider: Richy Eagle Home Meds and New Rx's Prescriptions: New sucralfate [Carafate] 1 gram tablet 1 g PO BID Qty: 60 0RF docusate sodium [Colace] 100 mg capsule 100 mg PO DAILY Qty: 60 0RF No Action methadone 10 mg/5 mL solution 110 mg PO QAM trazodone 50 mg tablet 50 mg PO QHS PRN (Reason: sleep) Qty: 30 0RF magnesium citrate Solution 300 ml PO ONCE Qty: 296 0RF Rx Instructions: as a single dose buspirone 10 mg tablet 20 mg PO QAM sennosides [senna] 8.6 mg tablet PO DAILY Label Comments: TAKE TWO TABLETS BY MOUTH AT BEDTIME gabapentin 300 mg capsule 600 mg PO TID Label Comments: TAKE ONE CAPSULE BY MOUTH EVERY 6 HOURS NEEDED NOT TO EXCEED 2 IN 24 HOURS Discharge Instructions Instructions: Hypercalcemia (ED) Additional Instructions: At this time your calcium level has improved but is still slightly elevated. Please drink plenty of water and stay well-hydrated. Drink 10 cups of water per day. Prescription for Carafate has been sent to your pharmacy. Please take this to help with your stomach irritation. A prescription for Colace has also been sent to your pharmacy, please take this to help with your constipation. Please follow-up tomorrow with [facility] for your scheduled CT scan. If in the meantime your symptoms change or worsen or return, please return immediately and we can again discuss potential emergent CT imaging. If you notice any worsening of your symptoms, or any new symptoms such as vomiting, diarrhea, fever, chills, shortness of breath, chest pain, numbness, weakness, or fainting , please return immediately to the emergency department for reevaluation. Please follow up with your primary care provider as soon as possible for reassessment and reevaluation. As always, it was a pleasure participating in your medical care today. Referrals: Brendon Vivar DO [Primary Care Provider] - Medical Decision Making 26-year-old male with a past medical history of familial multiple endocrine neoplasia type I, chronic abdominal pain with multiple visits in the last few days, methadone use, who presents today for evaluation of abdominal pain. Patient was here in the ER a few days ago, CT scan was performed at that time which showed a notable amount of stool burden, he was given an enema 2 days after this, and had some improvement of his pain, but states that since then he has had continued on and off epigastric pain and discomfort and generalized abdominal achiness. He admits to vomiting over the last 2 days, no diarrhea. He has some burning when he does poop and does admit to some continued hard stools. He has noticed some small amount of red streaking. He is scheduled with [facility] to have a CT abdomen and pelvis with contrast that is specialized at [facility] at this time. It is scheduled for tomorrow morning. Patient denies any other complaints at this time. No blood in his vomit. He admits to a notable burning sensation in the left upper quadrant and symptoms of reflux. He has not taken any medications to help with this. No other complaints at this time. Exam demonstrates mild abdominal achiness throughout, mild left upper quadrant epigastric tenderness. Remainder the exam is unremarkable with no signs of an acute surgical abdomen whatsoever. He does admit to some mild chills and myalgias. I suspect he has gastric irritation and potential ulcer. We will give GI cocktail. We will hold off on CT imaging at this time per patient request after discussion of risk and benefits of multiple radiation exposures especially with his recent CT scans. We will gently rehydrate, monitor closely and reassess. 10:53 PM Work-up has returned, patient has no white count bandemia or left shift. Patient's renal function is excellent. Patient's calcium is high at 12. Repeat calcium is now down to 10. Although I still think that the patient has clinical evidence of gastric irritation, I suspect that the hypercalcemia may also be causing his abdominal pain and constipation. On reassessment after 2 L of normal saline the patient is feeling much better. We will get a repeat calcium, but I do feel the patient stable for discharge. Repeat exam demonstrates no evidence of an acute surgical abdomen whatsoever. Patient would like to hold off on CT scan for. After GI cocktail the patient's abdominal pain notably improved, and he feels well and would like to go home. He continues to prefer to hold off on the CT at this time and will follow up with [facility] tomorrow for his scheduled CT done there per their protocol. No indication for bisphosphonates or calcitonin at this stage with his calcium only being 12. Will recommend continued fluids and hydration at home. We will give Carafate for home use, as well as Colace to help with his constipation. I have extensively reviewed the treatment plan and discharge instructions with the patient and their family. I have addressed all patient concerns at this time. The patient and family was made aware of what symptoms to monitor for that would warrant a return to the emergency department. Discussed the plan with the patient and family, they demonstrate verbal understanding and agreement with our assessment and plan at this time. The documentation in this chart was dictated using [employer] dictation software. Please excuse any dictation errors. HPI General Date/Time Provider Initiated Documentation: 03/13/22 18:26. HPI Narrative: 26-year-old male with a past medical history of familial multiple endocrine neoplasia type I, chronic abdominal pain with multiple visits in the last few days, methadone use, who presents today for evaluation of abdominal pain. Patient was here in the ER a few days ago, CT scan was performed at that time which showed a notable amount of stool burden, he was given an enema 2 days after this, and had some improvement of his pain, but states that since then he has had continued on and off epigastric pain and discomfort and generalized abdominal achiness. He admits to vomiting over the last 2 days, no diarrhea. He has some burning when he does poop and does admit to some continued hard stools. He has noticed some small amount of red streaking. He is scheduled with [facility] to have a CT abdomen and pelvis with contrast that is specialized at [facility] at this time. It is scheduled for tomorrow morning. Patient denies any other complaints at this time. No blood in his vomit. He admits to a notable burning sensation in the left upper quadrant and symptoms of reflux. He has not taken any medications to help with this. No other complaints at this time. Related Data Home Medications Medication Instructions Recorded Confirmed trazodone 50 mg tablet 50 mg PO QHS PRN sleep #30 tabs 10/25/21 03/13/22 methadone 10 mg/5 mL oral solution 110 mg PO QAM 11/16/21 03/13/22 buspirone 10 mg tablet 20 mg PO QAM 12/01/21 03/13/22 gabapentin 300 mg capsule 600 mg PO TID 12/20/21 03/13/22 sennosides 8.6 mg tablet (senna) tab PO DAILY 12/20/21 magnesium citrate 300 ml PO ONCE #296 mL 03/08/22 03/13/22 docusate sodium 100 mg capsule 100 mg PO DAILY #60 caps 03/13/22 (Colace) sucralfate 1 gram tablet (Carafate) 1 g PO BID #60 tabs 03/13/22 Previous Rx's Medication Instructions Recorded trazodone 50 mg tablet 50 mg PO QHS PRN sleep #30 tabs 10/25/21 magnesium citrate 300 ml PO ONCE #296 mL 03/08/22 docusate sodium 100 mg capsule 100 mg PO DAILY #60 caps 03/13/22 (Colace) sucralfate 1 gram tablet (Carafate) 1 g PO BID #60 tabs 03/13/22 Allergies Allergy/AdvReac Type Severity Reaction Status Date / Time codeine Allergy Intermediate Verified 03/08/22 12:05 General Stated Complaint: [employer] ADRIANA: 3 Review of Systems All systems reviewed & are unremarkable except as noted in HPI and below PFSH All Active Problems (Updated 03/13/22 @ 22:01 by Richy Eagle DO) Abdominal pain (Acute) Abdominal pain (Acute) Abdominal pain (Acute) Hypercalcemia (Acute) Abdominal pain (Acute) Anxiety (Chronic) Depression (Chronic) Depression (Chronic) Suicidal ideation (Acute) Elevated parathyroid hormone (Acute) Hyperlipidemia (Acute) Family history of coronary arteriosclerosis (Chronic) Father of ME at 50, mother had ME at 42 Family history of multiple endocrine neoplasia, type 1 (Acute) Severe anxiety with panic (Acute) Hypercalcemia (Acute) PTSD (post-traumatic stress disorder) (Acute) Cellulitis (Acute) Medical History Anxiety in acute stress reaction Cocaine use History of heroin abuse Surgical History No significant past surgical history Family History Mother Anxiety Asthma Depression Sister Anxiety Depression Father Cancer lung & stomach Depression Diabetes Hypertension MEN 1 (multiple endocrine neoplasia) Social History Smoking/Tobacco Use Status: Never Smoking risk assessment performed?: Yes Alcohol Intake: never Drug use: Current 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: 1 month clean Adopted: No Caregiver/Support person: No Foster care: No Household members: none Housing: house Number of Children: 0 Communication Needs: None Education Level: high school Do you need help understanding health information?: Never 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 and animals: Yes (Ally) Pets and animals: dog(s) Sexually active: No Do you think of yourself as: straight/heterosexual Current gender identity: male What is your relationship status?: How often do you talk on the phone with friends or family?: twice per week How often do you get together with friends or relatives?: never Do you belong to any clubs or organized social groups?: no Panel score (0-1 are the most socially isolated patients): 0 What type of physical activity do you participate in: walking Duration: 15-30 minutes/day Frequency: 5-6 times per week Maryam/Hoahaoism: Jehovah'S Witness Special maryam needs: No Seatbelt use: always Helmet use: Yes Helmet use: always Drive 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 yard 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 Exam Narrative Exam Narrative: 1.Const: Well-nourished, Well-developed, appearing stated age 2.Eyes: PERRL, no conjunctival injection, and symmetrical lids. 3.ENT: Atraumatic external nose and ears. Moist MM. Neck: Symmetric, trachea midline, No thyromegaly. 4.CVS: +S1/S2, No murmurs or gallops. Peripheral pulses 2+ and equal in all extremities. Brisk capillary refill in all extremities. 5.RESP: Unlabored respiratory effort. Clear to auscultation bilaterally. No wheezes rales or rhonchi 6.GI: Soft, nondistended, mild generalized achiness throughout. Mild pain in the epigastric region on the left. No pain at McBurney's point, negative Cedillo sign. Negative Rovsing test. No guarding or rebound. 7.MSK: Normocephalic/Atraumatic, Extremities w/o deformity or ttp No cyanosis or clubbing, Normal movement of all extremities 8.Skin: Warm, Dry. No rashes or lesions. 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 Sensation grossly intact, no focal neurologic deficits. 10.Psych: (AAO) x3. Appropriate mood and affect Course Vital Signs Vital signs: Vital Signs Temperature 37.3 C 03/13/22 18:12 Pulse 91 H 03/13/22 18:12 Respiratory Rate 22 03/13/22 18:12 Blood Pressure 120/67 03/13/22 18:12 Pulse Oximetry 100 03/13/22 18:12 Temperature 37.3 C 03/13/22 18:12 Temperature Source Oral 03/13/22 18:12 Pulse 91 H 03/13/22 18:12 Respiratory Rate 22 03/13/22 18:12 Respiratory Effort 03/13/22 19:01 Respiratory Depth Normal 03/13/22 19:01 Respiratory Pattern Normal 03/13/22 19:01 Blood Pressure 120/67 03/13/22 18:12 Blood Pressure Position Sitting 03/13/22 18:12 Pulse Oximetry 100 03/13/22 18:12 Oxygen Delivery Method Room Air 03/13/22 18:12 Oxygen Flow Rate 0 03/13/22 18:12 Pain Level 5 03/13/22 18:12 Comment 03/13/22 18:12 Lab/Test Results Lab/Test Results: Laboratory Tests Range/Units 03/13/22 18:55 WBC (4.4-10.8) 10^3/uL 10.52 RBC (4.36-5.78) 10^6/uL 4.46 Hgb (13.5-17.5) g/dL 13.6 Hct (40.0-50.0) % 39.3 L MCV (80-95) fL 88 MCH (27.0-33.0) pg 30.5 MCHC (32.0-36.0) % 34.6 RDW (11.8-14.1) % 11.9 Plt Count (130-400) 10^3/uL 263 MPV (8.0-11.0) fL 11.3 H Immature Gran % 0.2 Neutrophils % 55.0 Lymphocytes % 32.3 Monocytes % 10.8 Eosinophils % 1.2 Basophils % 0.5 Nucleated RBC % (0.0-0.3) % 0.0 Absolute Neutrophils (1.2-6.7) 10^3/uL 5.78 Absolute Lymphocytes (1.2-3.4) 10^3/uL 3.40 Absolute Monocytes (0.1-0.8) 10^3/uL 1.14 H Absolute Eosinophils (0.0-0.7) 10^3/uL 0.13 Absolute Basophils (0.0-0.2) 10^3/uL 0.05
[2022-03-13 19:40] LABS: Bacteria Negative HPF (Negative); C & S Indicated? No; Casts Negative LPF (Negative); Crystals Negative HPF (Negative); Epithelial Cells Moderate HPF (Negative); Mucus Negative (Negative); Other Cells Negative (Negative); RBC 0-2 HPF (0-2); WBC 0-2 HPF (0-5)
[2022-03-13 19:42] LABS: COVID-19 PCR Negative (Negative); Influenza A PCR Negative (Negative); Influenza B PCR Negative (Negative); RSV PCR Negative (Negative)
[2022-03-13 19:43] LABS: Source Nasopharynx
[2022-03-13 22:34] LABS: Anion Gap 6.7 mmol/L (3-11); BUN 8 mg/dL (7-18); CO2 27.3 mmol/L (21.0-32.0); CREATININE 0.9 mg/dL (0.70-1.30); Calcium 10.7 mg/dL (8.5-10.1); Chloride 106 mmol/L (98-107); Estimated GFR 119.31 (mL/min/1.73m2); Glucose 75 mg/dL (74-106); Potassium 3.7 mmol/L (3.5-5.1); Sodium 140 mmol/L (136-145)
== END 2022-03-13 22:36 | disposition home or self-care (01) ==
PROVIDERS: Emergency Provider Student in an Organized Health Care Education/Training Program; PCP Family Medicine
DX: E83.52 Hypercalcemia (principal); R10.13 Epigastric pain; R10.84 Generalized abdominal pain; R10.12 Left upper quadrant pain; Z20.822 Contact with and (suspected) exposure to COVID-19
CPT/HCPCS: 80048; 80053; 83690; 87637; 96361; 96374; 99284; 81003; 81015; 85025; J0131

== ENCOUNTER 2022-03-25 14:10 | Emergency (ER) | payer MEDICAID, SELFPAY ==
[2022-03-25] VITALS (8 sets, daily range): BP systolic 105–122; BP diastolic 59–83; PULSE 77–83; RESP 11–18; TEMP 36.6; O2SAT 94–98
--- NOTE | 2022-03-25 14:15 | RT.EKG_ITS ---
APPROVED REPORT Exam: Resting ECG Reason for Exam: chest pain, sob Patient Location: E HR:76 bpm ECG Measurements Heart Rate 76 AXIS NH 187 P 62 QRSd 96 QRS 59 QT 385 T 19 QTc 434 Conclusion Sinus rhythm...normal P axis, V-rate 60- 99 Probable lateral infarct, old...Q>35mS, abnormal ST-T, V5-6 I aVL
--- NOTE | 2022-03-25 14:45 | DI.RAD_ITS ---
Exam(s) XR CHEST 2V PA LATERAL EXAM: XR CHEST 2V PA LATERAL CLINICAL HISTORY: chest discomfort TECHNIQUE: 2D digital imaging was performed. COMPARISON: CR XR ABD FLAT UPRIGHT PA CHEST from 03/08/2022 FINDINGS: HEART: Normal size. Aorta: PULMONARY VASCULATURE: Normal. LUNGS: Clear. PLEURAL SPACE: No pleural effusion or pneumothorax. BONE:Unremarkable for age. IMPRESSION: No acute abnormality. DATA REPOSITORY: RADIATION DOSE DELIVERED:
--- NOTE | 2022-03-25 14:51 | ED.GENADUL_ITS ---
Discharge Plan Disposition Patient Disposition: HOME Condition: Good Discharge Details Clinical Impression: Dental infection, Anxiety, Chest pain Primary Care Provider: Brendon Vivar ED Provider: Steph Jones Home Meds and New Rx's Prescriptions: New penicillin V potassium 500 mg tablet 500 mg PO QID 7 Days Qty: 28 0RF Continued methadone 10 mg/5 mL solution 110 mg PO QAM trazodone 100 mg tablet 1 tab PO HS Label Comments: TAKE ONE TABLET BY MOUTH AT BEDTIME fluoxetine 20 mg capsule Label Comments: TAKE THREE CAPSULES BY MOUTH EVERY MORNING escitalopram oxalate 20 mg tablet 1 tab PO DAILY Label Comments: TAKE ONE TABLET BY MOUTH EVERY DAY buspirone 10 mg tablet 20 mg PO QAM sennosides [senna] 8.6 mg tablet 1 tab PO DAILY Label Comments: TAKE TWO TABLETS BY MOUTH AT BEDTIME gabapentin 300 mg capsule 600 mg PO TID Label Comments: TAKE ONE CAPSULE BY MOUTH EVERY 6 HOURS NEEDED NOT TO EXCEED 2 IN 24 HOURS sucralfate [Carafate] 1 gram tablet 1 g PO BID Qty: 60 0RF docusate sodium [Colace] 100 mg capsule 100 mg PO DAILY Qty: 60 0RF Discharge Instructions Instructions: Chest Pain (ED), Dental Abscess (ED), Anxiety (ED) Additional Instructions: As discussed, your dental pain is concerning for infection. Please take the penicillin as prescribed. You will need definitive care for your teeth, please call local dentist to schedule follow-up appointment. There is a list of local dentists for numbers attached. Please contact your general surgeon to discuss today's concerns and discuss your upcoming procedure. I am concerned that some of her chest discomfort is associated with increased stress and anxiety around her procedure tomorrow. Please consider counseling further and reach back out to [facility] human services to schedule [phone]. Your laboratory work-up here and imaging were reassuring. However, if you develop increased pain, shortness of breath, difficulty breathing or other new/worsening symptoms to seek care urgently once again. Referrals: Brendon Vivar DO [Primary Care Provider] - Discharge Data Discharge Date/Time-TO BE ENTERED AT DEPARTURE: 03/25/22 16:47 Medical Decision Making <ANDREW Magaña - Last Filed: 03/28/22 10:20> Patient is a pleasant 26-year-old male presented with chief complaint of chest discomfort. He reports that it was present when he woke this morning and has persisted throughout the course of the day. States that it is relieved with laying back. No improvement with leaning forward. States that he has chronic shortness of breath but no increase or change in this. No recent change in medications. Denies any fevers or chills. No cough. Pain has been reproducible for him with palpation and can radiate up towards the left shoulder. Also reports that he has had some increased discomfort with eating. Patient has been here for chest pain in the past that he states that this pain is different than historically. Denies it being a true pain and more that it is discomfort. No exertional component to his discomfort. Reports that he is doing well today. He is prepping for surgery tomorrow to have a parat hyroidectomy at [facility]. He states he did contact his surgeon and let her know about this. He denies any recent trauma. No change in medications. Is very stressed and anxious regarding his upcoming surgical intervention. Reports that he is been without any illicit drug use for the past 7 months. On exam, patient appears anxious. He is hemodynamically stable. He is not hypoxic, normal pulse rate. Lungs are clear. Normal cardiac exam, no murmurs rubs or gallops. Does have pain with palpation over the left lateral aspect of his chest wall. No rash or evidence of deformity. Swelling, erythema. No epigastric tenderness with palpation. No pain radiating to the back. 2+ distal pulses. Patient also began reporting that he is having some dental pain, particular the left lower dentition. He does have poor dentition generally, tender with palpation over the buccal side of the gumline near the #23-20. No lingual sided pain. No appreciable swelling or erythema. Has been out of the swelling. No lymphadenopathy. With the patient's remote history of drug abuse as well as his positional chest discomfort and shortness of breath, I did consider potential pericarditis. This does not follow the classic improvement with leaning forward but actually is to reverse. However, will screen with an ESR and CRP. We will also obtain baseline labs with patient including a troponin. We will obtain chest x-ray. Patient is PERC negative. He has not had worsening SOB, no increased CP with deep inspiration. ECG reviwed by attending physician, no acute ischemic findings, no change from prior. Labs reviewed. Troponin WNL. ESR and CRP WNL. No leukocytosis. Calcium elevated but not critical. He is scheduled for his parathyroidectomy tomorrow at [facility]. HEART: Normal size.? Aorta: PULMONARY VASCULATURE: Normal. LUNGS: Clear. ? PLEURAL SPACE: No pleural effusion or pneumothorax. BONE:Unremarkable for age.? IMPRESSION: No acute abnormality.? I discussed these findings with [facility]. Given that I already have low suspiciion for ACS with no exertional symptoms, some association with food and position, and that the discomfort began at 0600, I do not see need for repeat troponin. Patient does acknowledge a large amount of stress/anxiety around his surgery tomorrow. He has been in touch with his surgical team and will call them now to discuss the results here. I encouraged that he also have f/u with counseling and PCP. He has his appointment tomorrow, will call PCP for close f/u. Strict return precautions discussed. All of his quesitons and concerns were addressed, eh is in agreement with this plan. Barrington Arciniega PA-C [id number] This patient was in my chart signing queue; however, this patient was evaluated by my colleague ANDREW Jones and was not signed out to me. I had no interaction with the patient nor any medical decision making in this case. <ANDREW Chow - Last Filed: 03/25/22 17:02> Patient is a pleasant 26-year-old male presented with chief complaint of chest discomfort. He reports that it was present when he woke this morning and has persisted throughout the course of the day. States that it is relieved with laying back. No improvement with leaning forward. States that he has chronic shortness of breath but no increase or change in this. No recent change in medications. Denies any fevers or chills. No cough. Pain has been reproducible for him with palpation and can radiate up towards the left shoulder. Also reports that he has had some increased discomfort with eating. Patient has been here for chest pain in the past that he states that this pain is different than historically. Denies it being a true pain and more that it is discomfort. No exertional component to his discomfort. Reports that he is doing well today. He is prepping for surgery tomorrow to have a parathyroidectomy at [facility]. He states he did contact his surgeon and let her know about this. He denies any recent trauma. No change in medications. Is very stressed and anxious regarding his upcoming surgical intervention. Reports that he is been without any illicit drug use for the past 7 months. On exam, patient appears anxious. He is hemodynamically stable. He is not hypoxic, normal pulse rate. Lungs are clear. Normal cardiac exam, no murmurs rubs or gallops. Does have pain with palpation over the left lateral aspect of his chest wall. No rash or evidence of deformity. Swelling, erythema. No epigastric tenderness with palpation. No pain radiating to the back. 2+ distal pulses. Patient also began reporting that he is having some dental pain, particular the left lower dentition. He does have poor dentition generally, tender with palpation over the buccal side of the gumline near the #23-20. No lingual sided pain. No appreciable swelling or erythema. Has been out of the swelling. No lymphadenopathy. With the patient's remote history of drug abuse as well as his positional chest discomfort and shortness of breath, I did consider potential pericarditis. This does not follow the classic improvement with leaning forward but actually is to reverse. However, will screen with an ESR and CRP. We will also obtain baseline labs with patient including a troponin. We will obtain chest x-ray. Patient is PERC negative. He has not had worsening SOB, no increased CP with deep inspiration. Barrington Arciniega PA-C [id number] This patient was in my chart signing queue; however, this patient was evaluated by my colleague ANDREW Jones and was not signed out to me. I had no interaction with the patient nor any medical decision making in this case. HPI <ANDREW Magaña - Last Filed: 03/28/22 10:20> General Date/Time Provider Initiated Documentation: 03/25/22 14:12 . Limitations to Documentation: no limitations . Information obtained by: patient, RN notes reviewed and old records reviewed . History of Present Illness 26 year old M presents to the emergency department with the chief complaint of chest pain, described as moderate and similar to prior episodes, Quality is described as aching, and is localized to the chest. Patient reports no radiation. Patient started experiencing this hour(s) (0600) and it has been intermittent. other things that improve symptom(s), (laying flat) No exacerbating factors reported (no exertional component) . Patient notes chest pain; denies cough, diaphoresis, fever/chills, loss of appetite, malaise, nausea/vomiting, rash, shortness of breath, syncope and weakness. Patient did receive the following treatments prior to arrival, none Related Data Home Medications Medication Instructions Recorded Confirmed methadone 10 mg/5 mL oral solution 110 mg PO QAM 11/16/21 03/25/22 buspirone 10 mg tablet 20 mg PO QAM 12/01/21 03/13/22 gabapentin 300 mg capsule 600 mg PO TID 12/20/21 03/13/22 sennosides 8.6 mg tablet (senna) 1 tab PO DAILY 12/20/21 docusate sodium 100 mg capsule 100 mg PO DAILY #60 caps 03/13/22 (Colace) sucralfate 1 gram tablet (Carafate) 1 g PO BID #60 tabs 03/13/22 03/25/22 escitalopram oxalate 20 mg tablet 1 tab PO DAILY 03/25/22 03/25/22 fluoxetine 20 mg capsule cap 03/25/22 penicillin V potassium 500 mg 500 mg PO QID 7 days #28 tabs 03/25/22 tablet trazodone 100 mg tablet 1 tab PO HS 03/25/22 03/25/22 Previous Rx's Medication Instructions Recorded docusate sodium 100 mg capsule 100 mg PO DAILY #60 caps 03/13/22 (Colace) sucralfate 1 gram tablet (Carafate) 1 g PO BID #60 tabs 03/13/22 penicillin V potassium 500 mg 500 mg PO QID 7 days #28 tabs 03/25/22 tablet Allergies Allergy/AdvReac Type Severity Reaction Status Date / Time codeine Allergy Intermediate Verified 03/25/22 14:58 General Stated Complaint: Chest Pain ADRIANA: 2 Review of Systems <ANDREW Magaña - Last Filed: 03/28/22 10:20> Constitutional Constitutional: Reports as per HPI, Denies chills, Denies fever(s), Denies headache(s) and Denies poor appetite Eyes Eyes: Denies change in vision ENT Ears, Nose, Mouth, and Throat: Denies dizziness and Denies headache(s) Cardiovascular Cardiovascular: Reports as per HPI, Denies dyspnea and Denies dyspnea on exertion Respiratory Respiratory: Reports as per HPI, Denies chest congestion, Denies cough, Denies pain on inspiration, Denies pain with cough, Denies dyspnea and Denies dyspnea on exertion Gastrointestinal Gastrointestinal: Reports as per HPI, Denies abdominal pain, Denies diarrhea, Denies nausea and Denies vomiting Genitourinary Genitourinary: Denies system reviewed and no additional complaints, except as documented (denies change in urinary habits) Musculoskeletal Musculoskeletal: Reports as per HPI and Denies back pain Integumentary/Breasts Skin/Breast: Reports as per HPI and Denies rash Neurologic Neurologic: Reports as per HPI, Denies dizziness and Denies headache(s) PFSH <ANDREW Magaña - Last Filed: 03/28/22 10:20> All Active Problems (Updated 03/25/22 @ 16:19 by ANDREW Magaña) Abdominal pain (Acute) Abdominal pain (Acute) Abdominal pain (Acute) Hypercalcemia (Acute) Abdominal pain (Acute) Dental infection (Acute) Anxiety (Chronic) Chest pain (Acute) Anxiety (Chronic) Depression (Chronic) Depression (Chronic) Suicidal ideation (Acute) Elevated parathyroid hormone (Acute) Hyperlipidemia (Acute) Family history of coronary arteriosclerosis (Chronic) Father of NM at 50, mother had NM at 42 Family history of multiple endocrine neoplasia, type 1 (Acute) Severe anxiety with panic (Acute) Hypercalcemia (Acute) PTSD (post-traumatic stress disorder) (Acute) Cellulitis (Acute) Medical History Anxiety in acute stress reaction Cocaine use History of heroin abuse Surgical History No significant past surgical history Family History Mother Anxiety Asthma Depression Sister Anxiety Depression Father Cancer lung & stomach Depression Diabetes Hypertension MEN 1 (multiple endocrine neoplasia) Social History Smoking/Tobacco Use Status: Never Smoking risk assessment performed?: Yes Alcohol Intake: never Drug use: Current 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: 1 month clean Adopted: No Caregiver/Support person: No Foster care: No Household members: none Housing: house Number of Children: 0 Communication Needs: None Education Level: high school Do you need help understanding health information?: Never 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 and animals: Yes (Ally) Pets and animals: dog(s) Sexually active: No Do you think of yourself as: straight/heterosexual Current gender identity: male What is your relationship status?: How often do you talk on the phone with friends or family?: twice per week How often do you get together with friends or relatives?: never Do you belong to any clubs or organized social groups?: no Panel score (0-1 are the most socially isolated patients): 0 What type of physical activity do you participate in: walking Duration: 15-30 minutes/day Frequency: 5-6 times per week Maryam/Spiritism: Mormon Special maryam needs: No Seatbelt use: always Helmet use: Yes Helmet use: always Drive 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 patient transportation 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 Exam <ANDREW Magaña - Last Filed: 03/28/22 10:20> Const General: cooperative, healthy appearing, comfortable, no acute distress, well developed and anxious Nutritional Appearance: average body habitus and well nourished Orientation: alert, awake and oriented x3 HENMT Head: normal to inspection Ears: hearing grossly normal bilaterally Mouth: moist mucous membranes Chest Chest: normal inspection of the chest, normal palpation of entire chest wall and no crepitus Resp Effort & Inspection: normal respiratory effort, able to speak in complete sentences and no respiratory distress Auscultation: clear to auscultation bilaterally, no rales, no rhonchi and no wheezes Cardio Rate: regular rate Rhythm: regular rhythm Heart Sounds: S1 normal and S2 normal GI Inspection: normal to inspection, no edema and non-distended Palpation: soft, no hepatosplenomegaly, not firm, no guarding, not rigid and nontender Auscultation: normal bowel sounds Back/Spine/Pelvis Back: no CVA tenderness Thoracic/Lumbar Spine: thoracic and lumbar spine normal to inspection Skin General skin exam: no rashes or lesions noted Trauma: no lacerations or abrasions Neuro General: patient alert, patient awake and patient oriented x3 Cognition: normal cognition Speech: speech normal Gait: normal gait Extrem General: normal to inspection, capillary refill normal, no pedal edema, no calf tenderness and normal gait Psych Appearance: grossly normal and well kempt Mental Status: mental status grossly normal Speech and Movement: speech and movement normal Course <ANDREW Magaña - Last Filed: 03/28/22 10:20> Vital Signs Vital signs: Vital Signs Temperature 36.6 C 03/25/22 14:17 Pulse 82 03/25/22 14:17 Respiratory Rate 16 03/25/22 14:17 Blood Pressure 108/60 03/25/22 14:17 Pulse Oximetry 98 03/25/22 14:17 Temperature 36.6 C 03/25/22 14:17 Pulse 82 03/25/22 14:17 Respiratory Rate 16 03/25/22 14:17 Blood Pressure 108/60 03/25/22 14:17 Blood Pressure Position Sitting 03/25/22 14:17 Pulse Oximetry 98 03/25/22 14:17 Oxygen Delivery Method Room Air 03/25/22 14:17 Oxygen Flow Rate 0 03/25/22 14:17
[2022-03-25 15:16] LABS: ESR 7 mm/hr (0-15)
[2022-03-25 15:19] LABS: Abs Immature Grans 0.03 10^3/uL (0.0-0.06); Absolute Basophil Count 0.04 10^3/uL (0.0-0.2); Absolute Eosinophil Count 0.24 10^3/uL (0.0-0.7); Absolute Lymphocyte Count 1.56 10^3/uL (1.2-3.4); Absolute Monocyte Count 0.97 10^3/uL (0.1-0.8); Absolute Neutrophil Count 3.99 10^3/uL (1.2-6.7); Basophils % 0.6; Eosinophils % 3.5; HCT 36.9 % (40.0-50.0); HGB 12.1 g/dL (13.5-17.5); Immature Grans % 0.4; Lymphocytes % 22.8; MCH 30.3 pg (27.0-33.0); MCHC 32.8 % (32.0-36.0); MCV 93 fL (80-95); MPV 10.9 fL (8.0-11.0); Monocytes % 14.2; Neutrophils % 58.5; Platelet Count 196 10^3/uL (130-400); RBC 3.99 10^6/uL (4.36-5.78); RDW 12.4 % (11.8-14.1); RDW-SD 42.5 fL; WBC 6.83 10^3/uL (4.4-10.8)
[2022-03-25 15:37] LABS: ALT 31 U/L (16-63); AST 21 U/L (15-37); Albumin 3.3 g/dL (3.4-5.0); Alkaline Phosphatase 106 U/L (46-116); Anion Gap 4.5 mmol/L (3-11); BUN 10 mg/dL (7-18); Bilirubin, Total 0.2 mg/dL (0.2-1.0); C-Reactive Protein 0.19 mg/dL (0.0-0.3); CO2 28.5 mmol/L (21.0-32.0); CREATININE 0.9 mg/dL (0.70-1.30); Calcium 10.6 mg/dL (8.5-10.1); Chloride 106 mmol/L (98-107); Estimated GFR 119.31 (mL/min/1.73m2); Glucose 108 mg/dL (74-106); Magnesium 1.7 mg/dL (1.8-2.4); Potassium 3.8 mmol/L (3.5-5.1); Sodium 139 mmol/L (136-145); Troponin I < 50 ng/L (<or=60)
== END 2022-03-25 16:47 | disposition home or self-care (01) ==
PROVIDERS: Emergency Provider Physician Assistant; PCP Family Medicine
DX: K04.7 Periapical abscess without sinus (principal); F41.9 Anxiety disorder, unspecified; R07.9 Chest pain, unspecified
CPT/HCPCS: 36415; 80053; 85652; 93005; 99284; 71046; 83735; 84484; 85025; 85379; 86140; 93010; 99285

== ENCOUNTER 2022-03-28 12:31 | Emergency (ER) | payer MEDICAID, SELFPAY ==
[2022-03-28 12:48] VITALS: BP 106/70; PULSE 88; RESP 18; TEMP 36.7; O2SAT 98
--- NOTE | 2022-03-28 13:45 | RT.EKG_ITS ---
APPROVED REPORT Exam: Resting ECG Reason for Exam: palpitations Patient Location: E HR:76 bpm ECG Measurements Heart Rate 76 AXIS [place] 191 P 42 QRSd 97 QRS 49 QT 408 T 23 QTc 458 Conclusion Sinus rhythm...normal P axis, V-rate 60- 99. Sinus. Normal axis. No STEMI. I have reviewed and interpreted ECG and agree with software generated interpretation.
[2022-03-28 13:59] LABS: Abs Immature Grans 0.03 10^3/uL (0.0-0.06); Absolute Basophil Count 0.05 10^3/uL (0.0-0.2); Absolute Eosinophil Count 0.17 10^3/uL (0.0-0.7); Absolute Lymphocyte Count 2.96 10^3/uL (1.2-3.4); Absolute Monocyte Count 1.16 10^3/uL (0.1-0.8); Absolute Neutrophil Count 5.56 10^3/uL (1.2-6.7); Basophils % 0.5; Eosinophils % 1.7; HCT 36.5 % (40.0-50.0); HGB 12.1 g/dL (13.5-17.5); Immature Grans % 0.3; Lymphocytes % 29.8; MCH 31.1 pg (27.0-33.0); MCHC 33.2 % (32.0-36.0); MCV 94 fL (80-95); MPV 10.7 fL (8.0-11.0); Monocytes % 11.7; Platelet Count 216 10^3/uL (130-400); RBC 3.89 10^6/uL (4.36-5.78); RDW 12.7 % (11.8-14.1); RDW-SD 43.6 fL; WBC 9.93 10^3/uL (4.4-10.8)
[2022-03-28] MEDS: Lactated Ringers 1,000 ML 1000 ML IV (14:10)
[2022-03-28 14:16] LABS: ALT 88 U/L (16-63); AST 32 U/L (15-37); Albumin 3.5 g/dL (3.4-5.0); Alkaline Phosphatase 116 U/L (46-116); BUN 20 mg/dL (7-18); Bilirubin, Total 0.3 mg/dL (0.2-1.0); CREATININE 1.5 mg/dL (0.70-1.30); Calcium 8.1 mg/dL (8.5-10.1); Chloride 101 mmol/L (98-107); Estimated GFR 64.63 (mL/min/1.73m2); Glucose 84 mg/dL (74-106); Magnesium 1.6 mg/dL (1.8-2.4); Potassium 3.5 mmol/L (3.5-5.1); Sodium 139 mmol/L (136-145); Total Protein 7.4 g/dL (6.4-8.2)
[2022-03-28] MEDS: ACETAMINOPHEN 1,000 MG/100 ML BTL 400 MG IVPB (15:09)
[2022-03-28] MEDS: MAGNESIUM SULFATE 1 GM/100 ML BAG IVPB (15:19)
[2022-03-28] MEDS: LORazepam 2 MG/ML VIAL 1 MG IVP (15:20)
[2022-03-28 15:21] VITALS: BP 105/60; PULSE 81; RESP 16; O2SAT 97
--- NOTE | 2022-03-28 15:37 | ED.GENADUL_ITS ---
Discharge Plan Disposition Patient Disposition: HOME Condition: Stable Discharge Details Clinical Impression: Hypocalcemia, H/O parathyroidectomy Primary Care Provider: Brendon Vivar ED Provider: Luh Tsai Home Meds and New Rx's Prescriptions: New calcitriol 0.25 mcg capsule 0.25 mcg PO DAILY Qty: 14 0RF magnesium gluconate 27 mg magnesium (500 mg) tablet 27 mg PO BID Qty: 10 0RF Continued methadone 10 mg/5 mL solution 110 mg PO QAM trazodone 100 mg tablet 1 tab PO HS Label Comments: TAKE ONE TABLET BY MOUTH AT BEDTIME penicillin V potassium 500 mg tablet 500 mg PO QID 7 Days Qty: 28 0RF buspirone 10 mg Tablet 20 mg PO TID sennosides [senna] 8.6 mg tablet 1 tab PO DAILY Label Comments: TAKE TWO TABLETS BY MOUTH AT BEDTIME gabapentin 300 mg capsule 600 mg PO TID Label Comments: TAKE ONE CAPSULE BY MOUTH EVERY 6 HOURS NEEDED NOT TO EXCEED 2 IN 24 HOURS docusate sodium [Colace] 100 mg capsule 100 mg PO DAILY Qty: 60 0RF Discharge Instructions Additional Instructions: Take 4000 mg of Tums daily or 2400 mg of calcium daily Take calcitriol twice daily Take magnesium as prescribed Your doctor will follow up with you on Friday of next week The calcium and calcitriol is very important, please be sure you are taking your medications Return earlier should you have new or worsening complaints Referrals: Brendon Vivar DO [Primary Care Provider] - Discharge Data Discharge Date/Time-TO BE ENTERED AT DEPARTURE: 03/28/22 17:40 Medical Decision Making Spoke with Joan Covington, nurse practitioner for Dr. Gorman and she recommend 4000 mg of Tums daily or 2400 mg of calcium daily and 0.25 mg of calcitriol twice daily for the next 7 days Patient was given magnesium supplementation in the emergency department, This is likely secondary to dehydration, he was given 1 L of fluids and able to tolerate p.o. A parathyroid hormone test was ordered Discharged home in stable condition with stable vital HPI General Date/Time Provider Initiated Documentation: 03/28/22 13:02 . HPI Narrative: This 26-year-old gentleman with history of M EN 1 syndrome, parathyroidectomy, hyperlipidemia, chronic chest pain presents with report of sore throat and paresthesias. He states he feels anxious. He is status post parathyroidectomy at [facility] by Dr. Gorman on 26 March. He states that he has dehydrated and has had paresthesias of his why he presents. He denies any globus sensation in his throat. He states he is able to tolerate the medication. He denies any abdominal pain or bleeding complaints. He states his pain in his peripheral present since he was discharged and has not changed. Related Data Home Medications Medication Instructions Recorded Confirmed methadone 10 mg/5 mL oral solution 110 mg PO QAM 11/16/21 03/29/22 gabapentin 300 mg capsule 600 mg PO TID 12/20/21 03/29/22 sennosides 8.6 mg tablet (senna) 1 tab PO DAILY 12/20/21 03/29/22 docusate sodium 100 mg capsule 100 mg PO DAILY #60 caps 03/13/22 03/29/22 (Colace) penicillin V potassium 500 mg 500 mg PO QID 7 days #28 tabs 03/25/22 03/29/22 tablet trazodone 100 mg tablet 1 tab PO HS 03/25/22 03/29/22 buspirone 10 mg tablet 20 mg PO TID 03/28/22 03/29/22 calcitriol 0.25 mcg capsule 0.25 mcg PO DAILY #14 caps 03/28/22 03/29/22 magnesium gluconate 27 mg 27 mg PO BID #10 tabs 03/28/22 03/29/22 magnesium (500 mg) tablet Previous Rx's Medication Instructions Recorded docusate sodium 100 mg capsule 100 mg PO DAILY #60 caps 03/13/22 (Colace) penicillin V potassium 500 mg 500 mg PO QID 7 days #28 tabs 03/25/22 tablet calcitriol 0.25 mcg capsule 0.25 mcg PO DAILY #14 caps 03/28/22 magnesium gluconate 27 mg 27 mg PO BID #10 tabs 03/28/22 magnesium (500 mg) tablet Allergies Allergy/AdvReac Type Severity Reaction Status Date / Time codeine Allergy Intermediate Verified 03/29/22 21:35 General Stated Complaint: Sorethroat ADRIANA: 2 PFSH All Active Problems (Updated 03/30/22 @ 02:41 by Richy Eagle DO) Abdominal pain (Acute) Abdominal pain (Acute) Abdominal pain (Acute) Hypercalcemia (Acute) Abdominal pain (Acute) Dental infection (Acute) Anxiety (Chronic) Chest pain (Acute) Hypocalcemia (Acute) H/O parathyroidectomy (Acute) Hypocalcemia (Acute) Hypomagnesemia (Acute) Cramping of hands (Acute) Anxiety (Chronic) Depression (Chronic) Depression (Chronic) Suicidal ideation (Acute) Elevated parathyroid hormone (Acute) Hyperlipidemia (Acute) Family history of coronary arteriosclerosis (Chronic) Father of PR at 50, mother had PR at 42 Family history of multiple endocrine neoplasia, type 1 (Acute) Severe anxiety with panic (Acute) Hypercalcemia (Acute) PTSD (post-traumatic stress disorder) (Acute) Cellulitis (Acute) Medical History Anxiety in acute stress reaction Cocaine use History of heroin abuse Surgical History No significant past surgical history Family History Mother Anxiety Asthma Depression Sister Anxiety Depression Father Cancer lung & stomach Depression Diabetes Hypertension MEN 1 (multiple endocrine neoplasia) Social History Smoking/Tobacco Use Status: Never Smoking risk assessment performed?: Yes Alcohol Intake: never Drug use: Current 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: 1 month clean Adopted: No Caregiver/Support person: No Foster care: No Household members: none Housing: house Number of Children: 0 Communication Needs: None Education Level: high school Do you need help understanding health information?: Never 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 and animals: Yes (Ally) Pets and animals: dog(s) Sexually active: No Do you think of yourself as: straight/heterosexual Current gender identity: male What is your relationship status?: How often do you talk on the phone with friends or family?: twice per week How often do you get together with friends or relatives?: never Do you belong to any clubs or organized social groups?: no Panel score (0-1 are the most socially isolated patients): 0 What type of physical activity do you participate in: walking Duration: 15-30 minutes/day Frequency: 5-6 times per week Maryam/Baptism: Zoroastrianism Special maryam needs: No Seatbelt use: always Helmet use: Yes Helmet use: always Drive 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 wedding transportation 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 Exam Const General: cooperative and no acute distress HENMT Other: Well-healing and approximated surgical site Eyes Pupils: PERRL Resp Effort & Inspection: normal respiratory effort Auscultation: clear to auscultation bilaterally Cardio Rate: regular rate Rhythm: regular rhythm Skin General skin exam: no rashes or lesions noted Neuro General: patient alert and patient oriented x3 Course Vital Signs Vital signs: Vital Signs Temperature 36.7 C 03/28/22 12:48 Pulse 88 03/28/22 12:48 Respiratory Rate 18 03/28/22 12:48 Blood Pressure 106/70 03/28/22 12:48 Pulse Oximetry 98 03/28/22 12:48 Temperature 36.7 C 03/28/22 12:48 Temperature Source Tympanic 03/28/22 12:48 Pulse 81 03/28/22 15:21 Respiratory Rate 16 03/28/22 15:21 Respiratory Effort 03/28/22 12:52 Blood Pressure 105/60 03/28/22 15:21 Blood Pressure Position Sitting 03/28/22 12:48 Pulse Oximetry 97 03/28/22 15:21 Oxygen Delivery Method Room Air 03/28/22 12:48 Oxygen Flow Rate 0 03/28/22 12:48 Pain Level 7 03/28/22 12:48 Comment 03/28/22 12:48 Lab/Test Results Lab/Test Results: Laboratory Tests Range/Units 03/28/22 03/28/22 13:50 13:50 WBC (4.4-10.8) 10^3/uL 9.93 RBC (4.36-5.78) 10^6/uL 3.89 L Hgb (13.5-17.5) g/dL 12.1 L Hct (40.0-50.0) % 36.5 L MCV (80-95) fL 94 MCH (27.0-33.0) pg 31.1 MCHC (32.0-36.0) % 33.2 RDW (11.8-14.1) % 12.7 Plt Count (130-400) 10^3/uL 216 MPV (8.0-11.0) fL 10.7 Immature Gran % 0.3 Neutrophils % 56.0 Lymphocytes % 29.8 Monocytes % 11.7 Eosinophils % 1.7 Basophils % 0.5 Nucleated RBC % (0.0-0.3) % 0.0 Absolute Neutrophils (1.2-6.7) 10^3/uL 5.56 Absolute Lymphocytes (1.2-3.4) 10^3/uL 2.96 Absolute Monocytes (0.1-0.8) 10^3/uL 1.16 H Absolute Eosinophils (0.0-0.7) 10^3/uL 0.17 Absolute Basophils (0.0-0.2) 10^3/uL 0.05 Sodium (136-145) mmol/L 139 Potassium (3.5-5.1) mmol/L 3.5 Chloride (98-107) mmol/L 101 Carbon Dioxide (21.0-32.0) mmol/L 33.0 H Anion Gap (3-11) mmol/L 5.0 BUN (7-18) mg/dL 20 H Creatinine (0.70-1.30) mg/dL 1.5 H Est GFR (CKD-EPI 2020) (mL/min/1.73m2) 64.63 Glucose (74-106) mg/dL 84 Calcium (8.5-10.1) mg/dL 8.1 L Magnesium (1.8-2.4) mg/dL 1.6 L Total Bilirubin (0.2-1.0) mg/dL 0.3 AST (15-37) U/L 32 ALT (16-63) U/L 88 H Alkaline Phosphatase (46-116) U/L 116 Total Protein (6.4-8.2) g/dL 7.4 Albumin (3.4-5.0) g/dL 3.5
[2022-03-28 16:23] VITALS: BP 103/63; PULSE 61; RESP 16; TEMP 37.2; O2SAT 100
[2022-03-28 16:27] VITALS: BP 103/63; PULSE 61; RESP 16; TEMP 37.2; O2SAT 100
[2022-04-03 15:58] LABS: PTH-Related Peptide <0.4 pmol/L (< or = 4.2)
== END 2022-03-28 17:40 | disposition home or self-care (01) ==
PROVIDERS: Emergency Provider Physician Assistant; PCP Family Medicine
DX: E83.51 Hypocalcemia (principal); Z90.89 Acquired absence of other organs; R00.2 Palpitations
CPT/HCPCS: 36415; 80053; 93005; 96361; 96365; 96375; 99284; 82397; 83735; 85025; 93010; J0131; J2060; J3475

== ENCOUNTER 2022-03-29 21:26 | Emergency (ER) | payer MEDICAID, SELFPAY ==
[2022-03-29 21:30] VITALS: BP 131/85; PULSE 83; RESP 18; TEMP 36.7; O2SAT 99
[2022-03-29] MEDS: LORazepam 1 MG TAB PO (22:10)
[2022-03-29 22:13] LABS: HCT 34.6 % (40.0-50.0); HGB 11.5 g/dL (13.5-17.5); MCH 30.6 pg (27.0-33.0); MCHC 33.2 % (32.0-36.0); MCV 92 fL (80-95); MPV 10.6 fL (8.0-11.0); Platelet Count 205 10^3/uL (130-400); RBC 3.76 10^6/uL (4.36-5.78); RDW 12.4 % (11.8-14.1); RDW-SD 41.6 fL; WBC 7.45 10^3/uL (4.4-10.8)
[2022-03-29 22:34] LABS: ALT 60 U/L (16-63); AST 24 U/L (15-37); Albumin 3.2 g/dL (3.4-5.0); Alkaline Phosphatase 112 U/L (46-116); Anion Gap 2.8 mmol/L (3-11); BUN 12 mg/dL (7-18); Bilirubin, Total 0.2 mg/dL (0.2-1.0); CO2 35.2 mmol/L (21.0-32.0); CREATININE 1.1 mg/dL (0.70-1.30); Calcium 6.7 mg/dL (8.5-10.1); Chloride 102 mmol/L (98-107); Estimated GFR 93.77 (mL/min/1.73m2); Glucose 101 mg/dL (74-106); Magnesium 1.3 mg/dL (1.8-2.4); Potassium 3.5 mmol/L (3.5-5.1); Sodium 140 mmol/L (136-145); Total Protein 6.7 g/dL (6.4-8.2)
--- NOTE | 2022-03-29 22:40 | W.ED.GENAD ---
Discharge Plan Disposition Patient Disposition: HOME Condition: Good Discharge Details Clinical Impression: Hypocalcemia, Hypomagnesemia, Cramping of hands Primary Care Provider: Brendon Vivar ED Provider: Richy Eagle Home Meds and New Rx's Prescriptions: No Action methadone 10 mg/5 mL solution 110 mg PO QAM trazodone 100 mg tablet 1 tab PO HS Label Comments: TAKE ONE TABLET BY MOUTH AT BEDTIME penicillin V potassium 500 mg tablet 500 mg PO QID 7 Days Qty: 28 0RF buspirone 10 mg Tablet 20 mg PO TID calcitriol 0.25 mcg capsule 0.25 mcg PO DAILY Qty: 14 0RF magnesium gluconate 27 mg magnesium (500 mg) tablet 27 mg PO BID Qty: 10 0RF sennosides [senna] 8.6 mg tablet 1 tab PO DAILY Label Comments: TAKE TWO TABLETS BY MOUTH AT BEDTIME gabapentin 300 mg capsule 600 mg PO TID Label Comments: TAKE ONE CAPSULE BY MOUTH EVERY 6 HOURS NEEDED NOT TO EXCEED 2 IN 24 HOURS docusate sodium [Colace] 100 mg capsule 100 mg PO DAILY Qty: 60 0RF lorazepam [Ativan] 1 mg Tablet 1 mg PO QID Discharge Instructions Instructions: Hypocalcemia (ED), Hypomagnesemia (ED) Additional Instructions: Your magnesium levels and calcium levels have been replaced here in the emergency department. Please continue your home calcium regiment as directed by [facility]: increase your calcitriol to 0.25 BID. TUMS 1000 with meals, total of 3000 daily. and follow-up extremely closely with [facility]. If you notice any worsening of your symptoms, or any new symptoms such as vomiting, diarrhea, fever, chills, shortness of breath, chest pain, numbness, weakness, or fainting , please return immediately to the emergency department for reevaluation. Please follow up with your primary care provider as soon as possible for reassessment and reevaluation. As always, it was a pleasure participating in your medical care today. Referrals: Brendon Vivar DO [Primary Care Provider] - Discharge Data Discharge Date/Time-TO BE ENTERED AT DEPARTURE: 03/30/22 02:54 Medical Decision Making <ANDREW Magaña - Last Filed: 04/12/22 09:19> Patient is a 26 year old male, accompanied by mom, with c/c of BUE tingling, cramping, fatigue and general unwell. [place] [facility] [place] Was here yesterday with similar. Was started on TUMS for hypocalcemia, started calcium supplementations. He reports that despite this after a nap he woke noting hand tingling and spasms. Denies any difficulty swallowing. Has some general discomfort in the neck but states that this is progressively been improving since surgery. On exam, patient appears nontoxic. Vitals are stable. Lungs are clear. Surgical incision appears to be healing well with no surrounding erythema, warmth or drainage. I do not appreciate any evidence of carpopedal spasm at this time. Normal reflexes. No tremor. Patient does appear profoundly anxious. Concern for potential electrolyte abnormality, primarily hypocalcemia. However, he did have this checked yesterday and was 8.1 at that time and will increase his supplementation since then. Alternatively, this could be associated with anxiety. Given the baseline level of anxiety, will give p.o. Ativan for anxiolysis. Magnesium 1.3, calcium 6.7. We will begin replenishment. We will also plan to consult with endocrinology for further guidance. Consulted with endocrinology. They recommended increasing calcitriol to 0.25 BID. 1g calcium gluconate infusion. Recommends TUMS 1000 with meals, total of 3000 daily. She is questioning if this is not being taken with meals and that is why the patient is decreasing his Ca+. If on a PPI, recommends calcium citrate 950 TID. Follow up appointment on May 14. Recommendds calling them if he is low again. They will schedule appointment in 2 wks for more rapid f/u. Discussed with patient. He reports that he has been taking it with food. She is not taking any PPI. At the end of my shift, care transition to Dr. Eagle. Patient is receiving 1 g magnesium, 1 g calcium gluconate. Plan to recheck and likely discharged home with increase in tums and calcitriol as above. Dr. Eagle's documentation Case is signed out to me by Steph Leger. Please refer to HPI, physical exam assessment and plan. Patient was reassessed after his initial treatment with magnesium and calcium. Calcium slightly improved, magnesium notably improved on laboratory reassessment. However the patient's symptoms did not completely resolve for his hand cramping. It improved but did not resolve. A second amp of calcium gluconate was administered, and the patient tolerated this very well. After this his cramping had completely resolved he feels well and requested discharge home. Reassessment demonstrated well-appearing male, vital signs stable. No signs of cramping weakness or reflex abnormality. Patient is stable for discharge. Calcium trending in the correct direction. Magnesium repleted. I have extensively reviewed the treatment plan and discharge instructions with the patient. I have addressed all patient concerns at this time. The patient was made aware of what symptoms to monitor for that would warrant a return to the emergency department. Discussed the plan with the patient, they demonstrate verbal understanding and agreement with our assessment and plan at this time. The documentation in this chart was dictated using [employer] dictation software. Please excuse any dictation errors. <Richy Eagle, DO - Last Filed: 03/30/22 02:41> Patient is a 26 year old male, accompanied by mom, with c/c of BUE tingling, cramping, fatigue and general unwell. [place] [facility] [place] Was here yesterday with similar. Was started on TUMS for hypocalcemia, started calcium supplementations. He reports that despite this after a nap he woke noting hand tingling and spasms. Denies any difficulty swallowing. Has some general discomfort in the neck but states that this is progressively been improving since surgery. On exam, patient appears nontoxic. Vitals are stable. Lungs are clear. Surgical incision appears to be healing well with no surrounding erythema, warmth or drainage. I do not appreciate any evidence of carpopedal spasm at this time. Normal reflexes. No tremor. Patient does appear profoundly anxious. Concern for potential electrolyte abnormality, primarily hypocalcemia. However, he did have this checked yesterday and was 8.1 at that time and will increase his supplementation since then. Alternatively, this could be associated with anxiety. Given the baseline level of anxiety, will give p.o. Ativan for anxiolysis. Magnesium 1.3, calcium 6.7. We will begin replenishment. We will also plan to consult with endocrinology for further guidance. Consulted with endocrinology. They recommended increasing calcitriol to 0.25 BID. 1g calcium gluconate infusion. Recommends TUMS 1000 with meals, total of 3000 daily. She is questioning if this is not being taken with meals and that is why the patient is decreasing his Ca+. If on a PPI, recommends calcium citrate 950 TID. Follow up appointment on May 14. Recommendds calling them if he is low again. They will schedule appointment in 2 wks for more rapid f/u. Discussed with patient. He reports that he has been taking it with food. She is not taking any PPI. Shanti enema shift, care transition to Dr. Eagle. Patient is receiving 1 g magnesium, 1 g calcium gluconate. Plan to recheck and likely discharged home with increase in tums and calcitriol as above. Dr. Eagle's documentation Case is signed out to me by Steph Leger. Please refer to HPI, physical exam assessment and plan. Patient was reassessed after his initial treatment with magnesium and calcium. Calcium slightly improved, magnesium notably improved on laboratory reassessment. However the patient's symptoms did not completely resolve for his hand cramping. It improved but did not resolve. A second amp of calcium gluconate was administered, and the patient tolerated this very well. After this his cramping had completely resolved he feels well and requested discharge home. Reassessment demonstrated well-appearing male, vital signs stable. No signs of cramping weakness or reflex abnormality. Patient is stable for discharge. Calcium trending in the correct direction. Magnesium repleted. I have extensively reviewed the treatment plan and discharge instructions with the patient. I have addressed all patient concerns at this time. The patient was made aware of what symptoms to monitor for that would warrant a return to the emergency department. Discussed the plan with the patient, they demonstrate verbal understanding and agreement with our assessment and plan at this time. The documentation in this chart was dictated using [employer] dictation software. Please excuse any dictation errors. HPI <ANDREW Magaña - Last Filed: 04/12/22 09:19> General Date/Time Provider Initiated Documentation: 03/29/22 21:27. Limitations to Documentation: no limitations. Information obtained by: patient, family (mom), RN notes reviewed and old records reviewed. History of Present Illness 26 year old M presents to the emergency department with the chief complaint of paresthesias, cramping to hands, described as severe and similar to prior episodes, with intensity rated at 7. and is localized to the left, right and upper extremity. Patient started experiencing this hour(s) and it has been intermittent. No relieving factors improve symptom(s), No exacerbating factors reported (cramping sensation woke him from nap) . Patient notes no other symptoms.. Patient did receive the following treatments prior to arrival, other (tums) Related Data Home Medications Medication Instructions Recorded Confirmed methadone 10 mg/5 mL oral solution 110 mg PO QAM 11/16/21 04/01/22 gabapentin 300 mg capsule 600 mg PO TID 12/20/21 04/01/22 sennosides 8.6 mg tablet (senna) 1 tab PO DAILY 12/20/21 04/01/22 docusate sodium 100 mg capsule 100 mg PO DAILY #60 caps 03/13/22 04/01/22 (Colace) penicillin V potassium 500 mg 500 mg PO QID 7 days #28 tabs 03/25/22 04/01/22 tablet trazodone 100 mg tablet 1 tab PO HS 03/25/22 04/01/22 buspirone 10 mg tablet 20 mg PO TID 03/28/22 04/01/22 calcitriol 0.25 mcg capsule 0.25 mcg PO DAILY #14 caps 03/28/22 04/01/22 magnesium gluconate 27 mg 27 mg PO BID #10 tabs 03/28/22 04/01/22 magnesium (500 mg) tablet lorazepam 1 mg tablet (Ativan) 1 mg PO QID 04/01/22 04/01/22 Previous Rx's Medication Instructions Recorded docusate sodium 100 mg capsule 100 mg PO DAILY #60 caps 03/13/22 (Colace) penicillin V potassium 500 mg 500 mg PO QID 7 days #28 tabs 03/25/22 tablet calcitriol 0.25 mcg capsule 0.25 mcg PO DAILY #14 caps 03/28/22 magnesium gluconate 27 mg 27 mg PO BID #10 tabs 03/28/22 magnesium (500 mg) tablet Allergies Allergy/AdvReac Type Severity Reaction Status Date / Time codeine Allergy Intermediate Verified 04/01/22 06:15 General Stated Complaint: GenMedical ADRIANA: 3 Review of Systems <ANDREW Magaña - Last Filed: 04/12/22 09:19> Constitutional Constitutional: Reports as per HPI, Denies chills, Denies fever(s) and Denies headache(s) ENT Ears, Nose, Mouth, and Throat: Denies dizziness and Denies headache(s) Cardiovascular Cardiovascular: Reports as per HPI, Denies dyspnea and Denies dyspnea on exertion Respiratory Respiratory: Reports as per HPI, Denies chest congestion, Denies cough, Denies dyspnea and Denies dyspnea on exertion Gastrointestinal Gastrointestinal: Reports as per HPI, Denies abdominal pain, Denies diarrhea, Denies nausea and Denies vomiting Musculoskeletal Musculoskeletal: Reports as per HPI Integumentary/Breasts Skin/Breast: Reports as per HPI and Denies rash Neurologic Neurologic: Reports as per HPI, Denies dizziness and Denies headache(s) PFSH <ANDREW Magaña - Last Filed: 04/12/22 09:19> All Active Problems (Updated 04/08/22 @ 00:08 by HAMMAD WILEY) Hypercalcemia (Acute) Abdominal pain (Acute) Dental infection (Acute) Anxiety (Chronic) Chest pain (Acute) Hypocalcemia (Acute) H/O parathyroidectomy (Acute) Hypocalcemia (Acute) Hypomagnesemia (Acute) Cramping of hands (Acute) Hypomagnesemia (Acute) Hypocalcemia (Acute) Muscle cramping (Acute) Hypocalcemia (Acute) Hypomagnesemia (Acute) Anxiety (Chronic) Depression (Chronic) Depression (Chronic) Suicidal ideation (Acute) Elevated parathyroid hormone (Acute) Hyperlipidemia (Acute) Family history of coronary arteriosclerosis (Chronic) Father of AR at 50, mother had AR at 42 Family history of multiple endocrine neoplasia, type 1 (Acute) Severe anxiety with panic (Acute) Hypercalcemia (Acute) PTSD (post-traumatic stress disorder) (Acute) Cellulitis (Acute) Medical History Anxiety in acute stress reaction Cocaine use History of heroin abuse Surgical History No significant past surgical history Family History Mother Anxiety Asthma Depression Sister Anxiety Depression Father Cancer lung & stomach Depression Diabetes Hypertension MEN 1 (multiple endocrine neoplasia) Social History Smoking/Tobacco Use Status: Never Smoking risk assessment performed?: Yes Alcohol Intake: never Drug use: Current 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: 1 month clean Adopted: No Caregiver/Support person: No Foster care: No Household members: none Housing: house Number of Children: 0 Communication Needs: None Education Level: high school Do you need help understanding health information?: Never 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 and animals: Yes (Ally) Pets and animals: dog(s) Sexually active: No Do you think of yourself as: straight/heterosexual Current gender identity: male What is your relationship status?: How often do you talk on the phone with friends or family?: twice per week How often do you get together with friends or relatives?: never Do you belong to any clubs or organized social groups?: no Panel score (0-1 are the most socially isolated patients): 0 What type of physical activity do you participate in: walking Duration: 15-30 minutes/day Frequency: 5-6 times per week Maryam/Jew: [employer] Special maryam needs: No Seatbelt use: always Helmet use: Yes Helmet use: always Drive 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 route delivery service 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 Exam <ANDREW Magaña - Last Filed: 04/12/22 09:19> Const General: cooperative, healthy appearing, comfortable, no acute distress, well developed and anxious Nutritional Appearance: average body habitus and well nourished Orientation: alert, awake and oriented x3 HENMT Head: normal to inspection Ears: hearing grossly normal bilaterally Mouth: moist mucous membranes Chest Chest: normal inspection of the chest, normal palpation of entire chest wall and no crepitus Resp Effort & Inspection: normal respiratory effort, able to speak in complete sentences and no respiratory distress Auscultation: clear to auscultation bilaterally, no rales, no rhonchi and no wheezes Cardio Rate: regular rate Rhythm: regular rhythm Heart Sounds: S1 normal and S2 normal GI Inspection: normal to inspection, no edema and non-distended Palpation: soft, no hepatosplenomegaly, not firm, no guarding, not rigid and nontender Auscultation: normal bowel sounds Back/Spine/Pelvis Back: no CVA tenderness Thoracic/Lumbar Spine: thoracic and lumbar spine normal to inspection Skin General skin exam: no rashes or lesions noted Trauma: no lacerations or abrasions Neuro General: patient alert, patient awake and patient oriented x3 Cognition: normal cognition Speech: speech normal Gait: normal gait Motor: muscle tone normal throughout, strength 5/5 throughout and no fasciculations Sensory Exam: no sensory deficits noted Extrem General: normal to inspection, capillary refill normal, no pedal edema, no calf tenderness and normal gait Psych Appearance: grossly normal and well kempt Mental Status: mental status grossly normal Speech and Movement: speech and movement normal Course <ANDREW Magaña - Last Filed: 04/12/22 09:19> Vital Signs Vital signs: Vital Signs Temperature 36.7 C 03/29/22 21:30 Pulse 83 03/29/22 21:30 Respiratory Rate 18 03/29/22 21:30 Blood Pressure 131/85 03/29/22 21:30 Pulse Oximetry 99 03/29/22 21:30 Temperature 36.7 C 03/29/22 21:30 Temperature Source Oral 03/29/22 21:30 Pulse 83 03/29/22 21:30 Respiratory Rate 18 03/29/22 21:30 Respiratory Effort Non-Labored 03/29/22 21:33 Respiratory Depth Normal 03/29/22 21:33 Respiratory Pattern Normal 03/29/22 21:33 Blood Pressure 131/85 03/29/22 21:30 Blood Pressure Position Sitting 03/29/22 21:30 Pulse Oximetry 99 03/29/22 21:30 Oxygen Delivery Method Room Air 03/29/22 21:30 Oxygen Flow Rate 0 03/29/22 21:30 Pain Level 7 03/29/22 21:30 Comment 03/29/22 21:30 Lab/Test Results Lab/Test Results: Laboratory Tests Range/Units 03/29/22 03/29/22 21:50 21:50 WBC (4.4-10.8) 10^3/uL 7.45 RBC (4.36-5.78) 10^6/uL 3.76 L Hgb (13.5-17.5) g/dL 11.5 L Hct (40.0-50.0) % 34.6 L MCV (80-95) fL 92 MCH (27.0-33.0) pg 30.6 MCHC (32.0-36.0) % 33.2 RDW (11.8-14.1) % 12.4 Plt Count (130-400) 10^3/uL 205 MPV (8.0-11.0) fL 10.6 Sodium (136-145) mmol/L 140 Potassium (3.5-5.1) mmol/L 3.5 Chloride (98-107) mmol/L 102 Carbon Dioxide (21.0-32.0) mmol/L 35.2 H Anion Gap (3-11) mmol/L 2.8 L BUN (7-18) mg/dL 12 Creatinine (0.70-1.30) mg/dL 1.1 Est GFR (CKD-EPI 2020) (mL/min/1.73m2) 93.77 Glucose (74-106) mg/dL 101 Calcium (8.5-10.1) mg/dL 6.7 L Magnesium (1.8-2.4) mg/dL 1.3 L Total Bilirubin (0.2-1.0) mg/dL 0.2 AST (15-37) U/L 24 ALT (16-63) U/L 60 Alkaline Phosphatase (46-116) U/L 112 Total Protein (6.4-8.2) g/dL 6.7 Albumin (3.4-5.0) g/dL 3.2 L <Richy Eagle DO - Last Filed: 03/30/22 02:41> Critical Care Time Critical Care Time: Yes Total Critical Care Time: 30 Attestation: Upon my evaluation, this patient had a high probability of imminent or life-threatening deterioration, which required my direct attention, intervention, and personal management. I have personally provided 30 minutes of critical care time exclusive of time spent on separately billable procedures. Time includes review of laboratory data, radiology results, discussion with consultants, and monitoring for potential decompensation. Interventions were performed as documented. Sign Out <ANDREW Magaña - Last Filed: 04/12/22 09:19> Sign Out Data: Sign Out Comment: Recent parathyroidectomy. Hypomagesemic, hypocalcemic. Received 1g mag, 1g calcium. Awaiting repeat and disposition. Spokewith endocrine at for recommendations. Last updated by Steph Jones PA at 03/30/22 00:42
--- NOTE | 2022-03-29 22:45 | RT.EKG_ITS ---
APPROVED REPORT Exam: Resting ECG Reason for Exam: hypocalcemic Patient Location: E HR:71 bpm ECG Measurements Heart Rate 71 AXIS MD 195 P 37 QRSd 95 QRS 71 QT 421 T 33 QTc 457 Conclusion Sinus rhythm...normal P axis, V-rate 60- 99 Physician: no stemi, intervals stable
[2022-03-29] MEDS: CALCIUM GLUCONATE in NaCl 1 GM/50 ML BAG IVPB (23:45)
[2022-03-29] MEDS: MAGNESIUM SULFATE 1 GM/100 ML BAG IVPB (23:45)
[2022-03-30 00:40] LABS: Calcium 6.8 mg/dL (8.5-10.1)
[2022-03-30] MEDS: Normal Saline 100 ML 200 ML (01:39)
[2022-03-30] MEDS: Calcium Gluconate 4.65 MEQ/10 ML VIAL 4.65 MG IVP (01:39)
[2022-03-30 02:53] VITALS: BP 124/78; PULSE 79; RESP 16; O2SAT 99
== END 2022-03-30 02:54 | disposition home or self-care (01) ==
PROVIDERS: Physician Assistant; Emergency Provider Student in an Organized Health Care Education/Training Program; PCP Family Medicine
DX: E83.51 Hypocalcemia (principal); E83.42 Hypomagnesemia; R25.2 Cramp and spasm; R20.2 Paresthesia of skin; R53.83 Other fatigue; M54.2 Cervicalgia; F41.9 Anxiety disorder, unspecified
CPT/HCPCS: 80053; 85027; 93005; 96365; 96368; 99291; 82310; 83735; 93010; J0610; J3475

== ENCOUNTER 2022-03-31 02:14 | Emergency (ER) | payer MEDICAID, SELFPAY ==
[2022-03-31] VITALS (16 sets, daily range): BP systolic 97–125; BP diastolic 50–75; PULSE 65–97; RESP 12–27; TEMP 36.8; O2SAT 99
--- NOTE | 2022-03-31 02:30 | RT.EKG_ITS ---
APPROVED REPORT Exam: Resting ECG Reason for Exam: chest pain Patient Location: E HR:133 bpm ECG Measurements Heart Rate 133 AXIS CA 122 P 48 QRSd 96 QRS 65 QT 313 T -47 QTc 466 Conclusion Sinus tachycardia...rate> 99 Nonspecific repol abnormality, inferior leads...ST dep, T neg, II III aVF Physician: Rate 133, sinus tachycardia, intervals normal. No significant ST elevation or depression
[2022-03-31] MEDS: Cyclobenzaprine 10 MG TAB PO (03:01)
--- NOTE | 2022-03-31 03:12 | ED.GENADUL_ITS ---
Discharge Plan Disposition Patient Disposition: HOME Condition: Good Discharge Details Clinical Impression: Hypomagnesemia, Hypocalcemia, Muscle cramping Primary Care Provider: Brendon Vivar ED Provider: Richy Eagle Home Meds and New Rx's Prescriptions: No Action methadone 10 mg/5 mL solution 110 mg PO QAM trazodone 100 mg tablet 1 tab PO HS Label Comments: TAKE ONE TABLET BY MOUTH AT BEDTIME penicillin V potassium 500 mg tablet 500 mg PO QID 7 Days Qty: 28 0RF buspirone 10 mg Tablet 20 mg PO TID calcitriol 0.25 mcg capsule 0.25 mcg PO DAILY Qty: 14 0RF magnesium gluconate 27 mg magnesium (500 mg) tablet 27 mg PO BID Qty: 10 0RF sennosides [senna] 8.6 mg tablet 1 tab PO DAILY Label Comments: TAKE TWO TABLETS BY MOUTH AT BEDTIME gabapentin 300 mg capsule 600 mg PO TID Label Comments: TAKE ONE CAPSULE BY MOUTH EVERY 6 HOURS NEEDED NOT TO EXCEED 2 IN 24 HOURS docusate sodium [Colace] 100 mg capsule 100 mg PO DAILY Qty: 60 0RF Discharge Instructions Instructions: Hypocalcemia (ED), Hypomagnesemia (ED) Additional Instructions: At this time your calcium and magnesium levels have improved. Please continue taking the increased supplemental regiment that John have been recommended. I have copied their instructions below. Increase your calcitriol to 0.25 BID. TUMS 1000 with meals, total of 3000 daily. If you notice any worsening of your symptoms, or any new symptoms such as vomiting, diarrhea, fever, chills, shortness of breath, chest pain, numbness, weakness, or fainting , please return immediately to the emergency department for reevaluation. Please follow up with your primary care provider as soon as possible for reassessment and reevaluation. As always, it was a pleasure participating in your medical care today. Referrals: Brendon Vivar DO [Primary Care Provider] - Medical Decision Making 26-year-old male with past medical history of anxiety, high cholesterol, history of men type I, multiple electrolyte abnormalities, with subsequent parathyroidectomy last week at [facility] [place], and PTSD. He presents today for spasms. Over the last week he has been here 3 times for similar symptoms. At his last visit he was noted to have a calcium level of 6.7. His magnesium was low at 1.3. His magnesium was replaced, and 2 A of calcium gluconate were eventually infused. After this the patient's cramping resolved and he was discharged. [facility] endocrine had been contacted and at that time they recommended increasing his calcitriol to 0.25 mg twice daily, and having Tums 1000 mg 3 times daily. Patient was discharged, went home, slept throughout the whole day, and then in the evening developed cramping in his feet and his hands and his back this continued for the next 3 to 4 hours until he came to the ER for further assessment. He denies any vomiting or diarrhea. He states that he has been taking the new medication as directed. No other complaints at this time. No other modifying factors. Exam demonstrates anxious appearing male, mild subjective spasms in his feet bilaterally and objective paraspinal back spasms on the left. EKG demonstrates stable intervals. Concern again for electrolyte abnormalities. We will evaluate for these, give a mild muscle relaxant to help with spasms. Monitor closely and reassess 5:23 AM Patient demonstrates magnesium that has dropped again down to 1.3, calcium is only slightly decreased from yesterday at 7.4. I still do feel at this time that these are related to the patient's symptomatology. We will give 2 g of IV calcium slowly and 4 g of IV midnight magnesium slowly to replenish this. We will reassess. 6:24 AM On reassessment the patient is feeling much better. His cramps have resolved. He is slightly sore. Waiting on repeat labs at this time. However if he remains clinically improved as well as improved from a laboratory perspective I do feel that he can likely be discharged with his continued high-dose outpatient calcium plan as recommended by [facility] endocrine. 6:55 AM Calcium levels have increased slightly to 7.5, however after discharge yesterday he still jumped an entire point afterwards. Clinically the patient symptoms have completely resolved. He has no more spasms, or tetany. Magnesium is 2.5 which is minimally elevated. We will recommend continuation for his home calcium and electrolyte supplementation. recommend continued close follow-up with [facility] endocrinology. Patient no longer clinically demonstrates any sig ns of hypomagnesemia or hypocalcemia. He also does not show any signs of toxic hypermagnesemia clinically either. DTRs remain intact. Muscle strength intact. I have extensively reviewed the treatment plan and discharge instructions with the patient and their family. I have addressed all patient concerns at this time. The patient and family was made aware of what symptoms to monitor for that would warrant a return to the emergency department. Discussed the plan with the patient and family, they demonstrate verbal understanding and agreement with our assessment and plan at this time. The documentation in this chart was dictated using [employer] dictation software. Please excuse any dictation errors. EKG 2: 53 Rate 133, sinus tachycardia, intervals normal. No significant ST elevation or depression. FINDINGS: Lungs: Unremarkable. No consolidation. Pleural spaces: Unremarkable. No pleural effusion. No pneumothorax. Heart/Mediastinum: Unremarkable. No cardiomegaly. Bones/joints: Unremarkable. IMPRESSION: No acute findings. Thank you for allowing us to participate in the care of your patient. Dictated and Authenticated by: Ricardo Bowens MD 03/31/2022 4:11 AM Eastern Time ([place] & [place]) HPI General Date/Time Provider Initiated Documentation: 03/31/22 02:23 . HPI Narrative: 26-year-old male with past medical history of anxiety, high cholesterol, history of men type I, multiple electrolyte abnormalities, with subsequent parathyroidectomy last week at [facility] [place], and PTSD. He presents today for spasms. Over the last week he has been here 3 times for similar symptoms. At his last visit he was noted to have a calcium level of 6.7. His magnesium was low at 1.3. His magnesium was replaced, and 2 A of calcium gluconate were eventually infused. After this the patient's cramping resolved and he was discharged. [facility] endocrine had been contacted and at that time they recommended increasing his calcitriol to 0.25 mg twice daily, and having Tums 1000 mg 3 times daily. Patient was discharged, went home, slept throughout the whole day, and then in the evening developed cramping in his feet and his hands and his back this continued for the next 3 to 4 hours until he came to the ER for further assessment. He denies any vomiting or diarrhea. He states that he has been taking the new medication as directed. No other complaints at this time. No other modifying factors. Related Data Home Medications Medication Instructions Recorded Confirmed methadone 10 mg/5 mL oral solution 110 mg PO QAM 11/16/21 03/31/22 gabapentin 300 mg capsule 600 mg PO TID 12/20/21 03/31/22 sennosides 8.6 mg tablet (senna) 1 tab PO DAILY 12/20/21 03/31/22 docusate sodium 100 mg capsule 100 mg PO DAILY #60 caps 03/13/22 03/31/22 (Colace) penicillin V potassium 500 mg 500 mg PO QID 7 days #28 tabs 03/25/22 03/31/22 tablet trazodone 100 mg tablet 1 tab PO HS 03/25/22 03/31/22 buspirone 10 mg tablet 20 mg PO TID 03/28/22 03/31/22 calcitriol 0.25 mcg capsule 0.25 mcg PO DAILY #14 caps 03/28/22 03/31/22 magnesium gluconate 27 mg 27 mg PO BID #10 tabs 03/28/22 03/31/22 magnesium (500 mg) tablet Previous Rx's Medication Instructions Recorded docusate sodium 100 mg capsule 100 mg PO DAILY #60 caps 03/13/22 (Colace) penicillin V potassium 500 mg 500 mg PO QID 7 days #28 tabs 03/25/22 tablet calcitriol 0.25 mcg capsule 0.25 mcg PO DAILY #14 caps 03/28/22 magnesium gluconate 27 mg 27 mg PO BID #10 tabs 03/28/22 magnesium (500 mg) tablet Allergies Allergy/AdvReac Type Severity Reaction Status Date / Time codeine Allergy Intermediate Verified 03/31/22 02:25 General Stated Complaint: Nk/Back Pain ADRIANA: 3 Review of Systems All systems reviewed & are unremarkable except as noted in HPI and below PFSH All Active Problems (Updated 03/31/22 @ 06:26 by Richy Eagle DO) Abdominal pain (Acute) Abdominal pain (Acute) Abdominal pain (Acute) Hypercalcemia (Acute) Abdominal pain (Acute) Dental infection (Acute) Anxiety (Chronic) Chest pain (Acute) Hypocalcemia (Acute) H/O parathyroidectomy (Acute) Hypocalcemia (Acute) Hypomagnesemia (Acute) Cramping of hands (Acute) Hypomagnesemia (Acute) Hypocalcemia (Acute) Muscle cramping (Acute) Anxiety (Chronic) Depression (Chronic) Depression (Chronic) Suicidal ideation (Acute) Elevated parathyroid hormone (Acute) Hyperlipidemia (Acute) Family history of coronary arteriosclerosis (Chronic) Father of NE at 50, mother had NE at 42 Family history of multiple endocrine neoplasia, type 1 (Acute) Severe anxiety with panic (Acute) Hypercalcemia (Acute) PTSD (post-traumatic stress disorder) (Acute) Cellulitis (Acute) Medical History Anxiety in acute stress reaction Cocaine use History of heroin abuse Surgical History No significant past surgical history Family History Mother Anxiety Asthma Depression Sister Anxiety Depression Father Cancer lung & stomach Depression Diabetes Hypertension MEN 1 (multiple endocrine neoplasia) Social History Smoking/Tobacco Use Status: Never Smoking risk assessment performed?: Yes Alcohol Intake: never Drug use: Current 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: 1 month clean Adopted: No Caregiver/Support person: No Foster care: No Household members: none Housing: house Number of Children: 0 Communication Needs: None Education Level: high school Do you need help understanding health information?: Never 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 and animals: Yes (Ally) Pets and animals: dog(s) Sexually active: No Do you think of yourself as: straight/heterosexual Current gender identity: male What is your relationship status?: How often do you talk on the phone with friends or family?: twice per week How often do you get together with friends or relatives?: never Do you belong to any clubs or organized social groups?: no Panel score (0-1 are the most socially isolated patients): 0 What type of physical activity do you participate in: walking Duration: 15-30 minutes/day Frequency: 5-6 times per week Maryam/Church: [employer] Special maryam needs: No Seatbelt use: always Helmet use: Yes Helmet use: always Drive 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 driver education road instructor: No Do you feel safe at home: Yes Do you feel safe in your relationship?: Yes Exam Narrative Exam Narrative: 1.Const: Well-nourished, Well-developed, appearing stated age 2.Eyes: PERRL, no conjunctival injection, and symmetrical lids. 3.ENT: Atraumatic external nose and ears. Moist MM. Neck: Symmetric, trachea midline, No thyromegaly. 4.CVS: +S1/S2, No murmurs or gallops. Peripheral pulses 2+ and equal in all extremities. Brisk capillary refill in all extremities. 5.RESP: Unlabored respiratory effort. Clear to auscultation bilaterally. No wheezes rales or rhonchi 6.GI: Soft, Nontender/Nondistended, No hepatosplenomegaly. No guarding or rebound. 7.MSK: Normocephalic/Atraumatic, Extremities w/o deformity or ttp No cyanosis or clubbing, subjective cramping in his feet and back. Calf muscles do appear somewhat tense but not spasmed. Toes do demonstrate flexibility. Negative Chvostek and Trousseau sign at this time. Mild paraspinal back spasm bilaterally. 8.Skin: Warm, Dry. No rashes or lesions. 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 Sensation grossly intact, no focal neurologic deficits. 10.Psych: (AAO) x3. Appropriate mood and affect Course Vital Signs Vital signs: Vital Signs Temperature 36.8 C 03/31/22 02:20 Pulse 95 H 03/31/22 02:20 Respiratory Rate 19 03/31/22 02:20 Blood Pressure 125/70 03/31/22 02:20 Pulse Oximetry 99 03/31/22 02:20 Temperature 36.8 C 03/31/22 02:20 Pulse 95 H 03/31/22 02:20 Respiratory Rate 19 03/31/22 02:20 Respiratory Effort Non-Labored 03/31/22 02:23 Blood Pressure 125/70 03/31/22 02:20 Blood Pressure Position Sitting 03/31/22 02:20 Pulse Oximetry 99 03/31/22 02:20 Oxygen Delivery Method Room Air 03/31/22 02:20 Oxygen Flow Rate 0 03/31/22 02:20 Pain Level 7 03/31/22 02:23
[2022-03-31 03:17] LABS: Abs Immature Grans 0.05 10^3/uL (0.0-0.06); Absolute Basophil Count 0.04 10^3/uL (0.0-0.2); Absolute Eosinophil Count 0.11 10^3/uL (0.0-0.7); Absolute Lymphocyte Count 2.64 10^3/uL (1.2-3.4); Absolute Monocyte Count 0.99 10^3/uL (0.1-0.8); Absolute Neutrophil Count 6.54 10^3/uL (1.2-6.7); Basophils % 0.4; Eosinophils % 1.1; HCT 39.2 % (40.0-50.0); HGB 13.2 g/dL (13.5-17.5); Immature Grans % 0.5; Lymphocytes % 25.5; MCH 30.4 pg (27.0-33.0); MCHC 33.7 % (32.0-36.0); MCV 90 fL (80-95); MPV 10.5 fL (8.0-11.0); Monocytes % 9.5; Platelet Count 285 10^3/uL (130-400); RBC 4.34 10^6/uL (4.36-5.78); RDW 11.8 % (11.8-14.1); RDW-SD 38.7 fL; WBC 10.37 10^3/uL (4.4-10.8)
--- NOTE | 2022-03-31 03:24 | DI.RAD_ITS ---
Exam(s) XR PORTABLE CHEST AP EXAM: XR PORTABLE CHEST AP CLINICAL HISTORY: chest pain, central TECHNIQUE: 2D digital imaging was performed of the chest. One image was obtained. An AP view was ob tained. COMPARISON: CR XR CHEST 2V PA LATERAL from 03/25/2022 FINDINGS: MEDIASTINUM: Normal. HEART: Normal. PULMONARY VASCULATURE: Normal. LUNGS: Clear. PLEURAL SPACE: No pleural effusion or pneumothorax. BONE:Within normal limits for the patient's age. OTHER FINDINGS:Normal. IMPRESSION: No acute pulmonary findings. DATA REPOSITORY: RADIATION DOSE DELIVERED:
[2022-03-31 03:32] LABS: ALT 53 U/L (16-63); AST 20 U/L (15-37); Albumin 3.9 g/dL (3.4-5.0); Alkaline Phosphatase 139 U/L (46-116); Anion Gap 11.8 mmol/L (3-11); BUN 12 mg/dL (7-18); Bilirubin, Total 0.5 mg/dL (0.2-1.0); CO2 29.2 mmol/L (21.0-32.0); CREATININE 1.1 mg/dL (0.70-1.30); Calcium 7.4 mg/dL (8.5-10.1); Chloride 99 mmol/L (98-107); Estimated GFR 93.77 (mL/min/1.73m2); Glucose 128 mg/dL (74-106); Magnesium 1.3 mg/dL (1.8-2.4); Potassium 3.5 mmol/L (3.5-5.1); Sodium 140 mmol/L (136-145); Total Protein 8.4 g/dL (6.4-8.2)
[2022-03-31] MEDS: MAGNESIUM SULFATE 4 GM/100 ML BAG IVPB (04:07)
--- NOTE | 2022-03-31 04:11 | DI.VRAD_ITS ---
PROCEDURE INFORMATION: Exam: XR Chest Exam date and time: 03/31/2022 3:04 AM Age: 26 years old Clinical indication: Chest pressure; Patient HX: Chest pain, central TECHNIQUE: Imaging protocol: Radiologic exam of the chest. Views: 1 view. COMPARISON: CR XR CHEST 2V PA LATERAL 03/25/2022 3:20 PM FINDINGS: Lungs: Unremarkable. No consolidation. Pleural spaces: Unremarkable. No pleural effusion. No pneumothorax. Heart/Mediastinum: Unremarkable. No cardiomegaly. Bones/joints: Unremarkable. IMPRESSION: No acute findings. Dictated and Authenticated by: Ricardo Bowens MD. Ordering:MIS Lockhart MD
[2022-03-31] MEDS: Calcium Gluconate 4.65 MEQ/10 ML VIAL 4.65 MG IVP ×2 (04:20)
[2022-03-31] MEDS: Normal Saline 250 ML 135 ML (04:20)
[2022-03-31] MEDS: Ondansetron 4 MG/2 ML VIAL (04:40)
[2022-03-31] MEDS: Calcium Citrate 950 MG TAB PO (04:45)
[2022-03-31 06:43] LABS: Anion Gap 7.4 mmol/L (3-11); BUN 10 mg/dL (7-18); CO2 31.6 mmol/L (21.0-32.0); CREATININE 0.9 mg/dL (0.70-1.30); Calcium 7.5 mg/dL (8.5-10.1); Chloride 102 mmol/L (98-107); Estimated GFR 119.31 (mL/min/1.73m2); Glucose 109 mg/dL (74-106); Magnesium 2.5 mg/dL (1.8-2.4); Potassium 3.8 mmol/L (3.5-5.1); Sodium 141 mmol/L (136-145)
== END 2022-03-31 07:09 | disposition home or self-care (01) ==
PROVIDERS: Emergency Provider Student in an Organized Health Care Education/Training Program; PCP Family Medicine
DX: E83.42 Hypomagnesemia (principal); E83.51 Hypocalcemia; M62.830 Muscle spasm of back; M62.838 Other muscle spasm
CPT/HCPCS: 36415; 80048; 80053; 93005; 96365; 96372; 96374; 96375; 99284; 71045; 83735; 85025; 93010; 99285; J0610; J2405; J3360; J3475

== ENCOUNTER 2022-03-31 07:58 | Emergency (ER) | payer MEDICAID, SELFPAY ==
[2022-03-31 08:03] VITALS: BP 126/78; PULSE 85; RESP 18; TEMP 37.2; O2SAT 98
--- NOTE | 2022-03-31 08:20 | W.ED.GENAD ---
Discharge Plan Disposition Patient Disposition: HOME Condition: Improving Discharge Details Clinical Impression: Hypocalcemia Primary Care Provider: Brendon Vivar ED Provider: Barrington Arciniega Home Meds and New Rx's Prescriptions: Continued methadone 10 mg/5 mL solution 110 mg PO QAM trazodone 100 mg tablet 1 tab PO HS Label Comments: TAKE ONE TABLET BY MOUTH AT BEDTIME penicillin V potassium 500 mg tablet 500 mg PO QID 7 Days Qty: 28 0RF buspirone 10 mg Tablet 20 mg PO TID calcitriol 0.25 mcg capsule 0.25 mcg PO DAILY Qty: 14 0RF magnesium gluconate 27 mg magnesium (500 mg) tablet 27 mg PO BID Qty: 10 0RF sennosides [senna] 8.6 mg tablet 1 tab PO DAILY Label Comments: TAKE TWO TABLETS BY MOUTH AT BEDTIME gabapentin 300 mg capsule 600 mg PO TID Label Comments: TAKE ONE CAPSULE BY MOUTH EVERY 6 HOURS NEEDED NOT TO EXCEED 2 IN 24 HOURS docusate sodium [Colace] 100 mg capsule 100 mg PO DAILY Qty: 60 0RF Discharge Instructions Additional Instructions: Please watch for new or worsening symptoms and return to the ER for any concerns. Be sure to begin taking your gabapentin that you stopped. I spoke with endocrinology at [facility], they will put a blood test order in for Friday and they will be contacting you for reevaluation in the office on . Increase your magnesium to a total of 3 times a day, a total of Tums 2003 times a day, and calcitriol 1 mcg twice a day. Medical Decision Making 26-year-old gentleman with multiple electrolyte abnormalities, recent parathyroidectomy at [facility], presents for ongoing spasms, tremulous, having been just discharged from the ER for the same, calcium and magnesium replenished, had a 15-second episode prior to arrival so decided to come back to the ER. Does not have endocrinology follow-up at [facility] for at least another 2-3 weeks. Patient also reports that he stopped taking his gabapentin 600 mg 3 times daily last week after the surgery. He tells me he has been compliant. Denies recent illness or trauma. Clinically he appears well but slightly anxious and occasionally tremulous, no obvious spasm. Neurologically intact. Plan to obtain IV access, give IV Valium, obtain routine screening laboratory values including repeat electrolytes and magnesium level. We will provide 600 p.o. gabapentin. EKG performed earlier today and shows no interval changes, I do not believe this needs to be rechecked now unless his electrolytes are grossly abnormal. Plan to request a endocrinology consultation for [facility]. Patient given 5 mg IV Valium for anxiety, tremors, muscle spasms. Upon reevaluation he is sleeping, resting comfortably, wakes easily to verbal stimuli. Reports significant improvement of his symptoms. Recheck of laboratory values reveal his calcium is stable at 7.4 magnesium of 1.9. Patient remains neurologically intact. Case discussed with endocrinology at [facility], Dr. Montalvo. She will put an order in for blood work on Friday, they will see him in the office on . Recommend increasing magnesium 3 times daily. Increasing Tums to a total of 2000 3 times daily, and increasing his calcitriol to 1 mcg twice daily. This plan was discussed both with mother and patient. No additional questions or concerns Standard discharge and return precautions were provided. Patient understands, is agreeable to this plan, and has no additional questions or concerns upon discharge. This documentation was generated using Zipanoation system, please disregard any oddities of phrase or misspellings. Medical Records Medical records reviewed: Yes I reviewed the patient's medical records. Lab Data Lab results reviewed: Yes I reviewed the patient's lab results. Labs: Laboratory Tests Range/Units 03/31/22 03/31/22 09:00 09:00 WBC (4.4-10.8) 10^3/uL 7.86 RBC (4.36-5.78) 10^6/uL 4.26 L Hgb (13.5-17.5) g/dL 12.9 L Hct (40.0-50.0) % 37.9 L MCV (80-95) fL 89 MCH (27.0-33.0) pg 30.3 MCHC (32.0-36.0) % 34.0 RDW (11.8-14.1) % 11.9 Plt Count (130-400) 10^3/uL 277 MPV (8.0-11.0) fL 10.3 Immature Gran % 0.3 Neutrophils % 73.4 Lymphocytes % 17.3 Monocytes % 8.4 Eosinophils % 0.3 Basophils % 0.3 Nucleated RBC % (0.0-0.3) % 0.0 Absolute Neutrophils (1.2-6.7) 10^3/uL 5.78 Absolute Lymphocytes (1.2-3.4) 10^3/uL 1.36 Absolute Monocytes (0.1-0.8) 10^3/uL 0.66 Absolute Eosinophils (0.0-0.7) 10^3/uL 0.02 Absolute Basophils (0.0-0.2) 10^3/uL 0.02 Sodium (136-145) mmol/L 142 Potassium (3.5-5.1) mmol/L 4.0 Chloride (98-107) mmol/L 102 Carbon Dioxide (21.0-32.0) mmol/L 31.9 Anion Gap (3-11) mmol/L 8.1 BUN (7-18) mg/dL 9 Creatinine (0.70-1.30) mg/dL 1.0 Est GFR (CKD-EPI 2020) (mL/min/1.73m2) 105.14 Glucose (74-106) mg/dL 118 H Calcium (8.5-10.1) mg/dL 7.4 L Magnesium (1.8-2.4) mg/dL 1.9 Total Bilirubin (0.2-1.0) mg/dL 0.6 AST (15-37) U/L 20 ALT (16-63) U/L 50 Alkaline Phosphatase (46-116) U/L 132 H Total Protein (6.4-8.2) g/dL 7.4 Albumin (3.4-5.0) g/dL 3.7 HPI General Mode of arrival: ambulatory. Date/Time Provider Initiated Documentation: 03/31/22 08:03. Limitations to Documentation: no limitations. Information obtained by: patient and family. HPI Narrative: This is a 26-year-old gentleman with a past medical history of parathyroidectomy last week at [facility], PTSD, anxiety, high cholesterol, men type I, presenting to the ER for ongoing muscle spasms, anxiety, electrolyte abnormalities. Patient was seen in the ER earlier this morning, electrolytes were replenished, given a muscle relaxer, and left feeling much better, less than 1 hour ago, reports that since that time he had a 15-second episode of muscle spasms, worsened anxiety and shaking. That has since resolved. He states that he is scheduled to be seen by his endocrinology team at [facility] next month but does not think he can wait that long. He denies recent illness or trauma. He tells me he has been compliant with all of his medication. He states that he has been compliant with the increased recommendations of his medications through the endocrinology team at [facility]. Subsequently he tells me that he stopped taking his gabapentin 600 mg 3 times daily last week after his surgery, was afraid to mix any of his medications. Related Data Home Medications Medication Instructions Recorded Confirmed methadone 10 mg/5 mL oral solution 110 mg PO QAM 11/16/21 03/31/22 gabapentin 300 mg capsule 600 mg PO TID 12/20/21 03/31/22 sennosides 8.6 mg tablet (senna) 1 tab PO DAILY 12/20/21 03/31/22 docusate sodium 100 mg capsule 100 mg PO DAILY #60 caps 03/13/22 03/31/22 (Colace) penicillin V potassium 500 mg 500 mg PO QID 7 days #28 tabs 03/25/22 03/31/22 tablet trazodone 100 mg tablet 1 tab PO HS 03/25/22 03/31/22 buspirone 10 mg tablet 20 mg PO TID 03/28/22 03/31/22 calcitriol 0.25 mcg capsule 0.25 mcg PO DAILY #14 caps 03/28/22 03/31/22 magnesium gluconate 27 mg 27 mg PO BID #10 tabs 03/28/22 03/31/22 magnesium (500 mg) tablet Previous Rx's Medication Instructions Recorded docusate sodium 100 mg capsule 100 mg PO DAILY #60 caps 03/13/22 (Colace) penicillin V potassium 500 mg 500 mg PO QID 7 days #28 tabs 03/25/22 tablet calcitriol 0.25 mcg capsule 0.25 mcg PO DAILY #14 caps 03/28/22 magnesium gluconate 27 mg 27 mg PO BID #10 tabs 03/28/22 magnesium (500 mg) tablet Allergies Allergy/AdvReac Type Severity Reaction Status Date / Time codeine Allergy Intermediate Verified 03/31/22 08:05 General Stated Complaint: Nk/Back Pain ADRIANA: 4 Review of Systems Constitutional Constitutional: Denies fatigue, Denies fever(s), Denies headache(s) and Denies weakness Eyes Eyes: Denies change in vision ENT Ears, Nose, Mouth, and Throat: Denies headache(s) and Denies neck pain Cardiovascular Cardiovascular: Denies chest pain and Denies dyspnea Respiratory Respiratory: Denies cough and Denies dyspnea Gastrointestinal Gastrointestinal: Denies abdominal pain, Denies nausea and Denies vomiting Musculoskeletal Musculoskeletal: Reports back pain, Denies neck pain, Denies numbness and Denies tingling Integumentary/Breasts Skin/Breast: Denies rash Neurologic Neurologic: Denies headache(s), Denies numbness, Denies tingling and Denies weakness Psychiatric Psychiatric: Reports anxiety Endocrine Endocrine: Denies fatigue PFSH All Active Problems (Updated 03/31/22 @ 10:12 by ANDREW Chow) Abdominal pain (Acute) Abdominal pain (Acute) Abdominal pain (Acute) Hypercalcemia (Acute) Abdominal pain (Acute) Dental infection (Acute) Anxiety (Chronic) Chest pain (Acute) Hypocalcemia (Acute) H/O parathyroidectomy (Acute) Hypocalcemia (Acute) Hypomagnesemia (Acute) Cramping of hands (Acute) Hypomagnesemia (Acute) Hypocalcemia (Acute) Muscle cramping (Acute) Anxiety (Chronic) Depression (Chronic) Depression (Chronic) Suicidal ideation (Acute) Elevated parathyroid hormone (Acute) Hyperlipidemia (Acute) Family history of coronary arteriosclerosis (Chronic) Father of [place] at 50, mother had [place] at 42 Family history of multiple endocrine neoplasia, type 1 (Acute) Severe anxiety with panic (Acute) Hypercalcemia (Acute) PTSD (post-traumatic stress disorder) (Acute) Cellulitis (Acute) Medical History Anxiety in acute stress reaction Cocaine use History of heroin abuse Surgical History No significant past surgical history Family History Mother Anxiety Asthma Depression Sister Anxiety Depression Father Cancer lung & stomach Depression Diabetes Hypertension MEN 1 (multiple endocrine neoplasia) Social History Smoking/Tobacco Use Status: Never Smoking risk assessment performed?: Yes Alcohol Intake: never Drug use: Current 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: 1 month clean Adopted: No Caregiver/Support person: No Foster care: No Household members: none Housing: house Number of Children: 0 Communication Needs: None Education Level: high school Do you need help understanding health information?: Never 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 and animals: Yes (Ally) Pets and animals: dog(s) Sexually active: No Do you think of yourself as: straight/heterosexual Current gender identity: male What is your relationship status?: How often do you talk on the phone with friends or family?: twice per week How often do you get together with friends or relatives?: never Do you belong to any clubs or organized social groups?: no Panel score (0-1 are the most socially isolated patients): 0 What type of physical activity do you participate in: walking Duration: 15-30 minutes/day Frequency: 5-6 times per week Maryam/Adventist: Cheondoism Special maryam needs: No Seatbelt use: always Helmet use: Yes Helmet use: always Drive 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 test car 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 Exam Const General: cooperative, healthy appearing, comfortable, no acute distress and anxious Orientation: alert, awake and oriented x3 Other: Occasionally tremulous HENMT Head: normal to inspection, normocephalic and atraumatic Face and sinus: normal facial exam Mouth: moist mucous membranes Throat: posterior oropharynx normal Eyes General: appearance normal, both eyes and all related structures Conjunctivae: conjunctivae normal Neck Neck: normal visual inspection, full ROM, no meningeal signs, trachea midline, supple and nontender Other: Anterior scar from recent parathyroidectomy, appears well, no signs of infection. Resp Effort & Inspection: normal respiratory effort and able to speak in complete sentences Auscultation: clear to auscultation bilaterally Cardio Rate: regular rate Rhythm: regular rhythm GI Palpation: soft and nontender Back/Spine/Pelvis Back: no CVA tenderness and back tenderness (Diffuse mild thoracic, no spasm) Skin General skin exam: no rashes or lesions noted Neuro General: patient alert, patient awake, patient oriented x3, moves all extremities and no focal motor deficits Cognition: normal cognition Speech: speech normal Gait: normal gait Motor: muscle tone normal throughout Sensory Exam: no sensory deficits noted Extrem General: normal to inspection, full ROM, capillary refill normal, no pedal edema and no calf tenderness Psych Appearance: grossly normal Mental Status: mental status grossly normal Course Vital Signs Vital signs: Vital Signs Temperature 37.2 C 03/31/22 08:03 Pulse 85 03/31/22 08:03 Respiratory Rate 18 03/31/22 08:03 Blood Pressure 126/78 03/31/22 08:03 Pulse Oximetry 98 03/31/22 08:03 Temperature 37.2 C 03/31/22 08:03 Temperature Source Tympanic 03/31/22 08:03 Pulse 85 03/31/22 08:03 Respiratory Rate 18 03/31/22 08:03 Respiratory Effort Non-Labored 03/31/22 08:06 Blood Pressure 126/78 03/31/22 08:03 Blood Pressure Position Sitting 03/31/22 08:03 Pulse Oximetry 98 03/31/22 08:03 Oxygen Delivery Method Room Air 03/31/22 08:03 Oxygen Flow Rate 0 03/31/22 08:03
[2022-03-31] MEDS: diazePAM 10 MG/2 ML SYR 5 MG IVP (08:57)
[2022-03-31] MEDS: Gabapentin 300 MG CAP 600 MG PO (08:57)
[2022-03-31 09:09] LABS: Abs Immature Grans 0.02 10^3/uL (0.0-0.06); Absolute Basophil Count 0.02 10^3/uL (0.0-0.2); Absolute Eosinophil Count 0.02 10^3/uL (0.0-0.7); Absolute Lymphocyte Count 1.36 10^3/uL (1.2-3.4); Absolute Monocyte Count 0.66 10^3/uL (0.1-0.8); Absolute Neutrophil Count 5.78 10^3/uL (1.2-6.7); Basophils % 0.3; Eosinophils % 0.3; HCT 37.9 % (40.0-50.0); HGB 12.9 g/dL (13.5-17.5); Immature Grans % 0.3; Lymphocytes % 17.3; MCH 30.3 pg (27.0-33.0); MCV 89 fL (80-95); MPV 10.3 fL (8.0-11.0); Monocytes % 8.4; Neutrophils % 73.4; Platelet Count 277 10^3/uL (130-400); RBC 4.26 10^6/uL (4.36-5.78); RDW 11.9 % (11.8-14.1); RDW-SD 38.2 fL; WBC 7.86 10^3/uL (4.4-10.8)
[2022-03-31 09:38] LABS: ALT 50 U/L (16-63); AST 20 U/L (15-37); Albumin 3.7 g/dL (3.4-5.0); Alkaline Phosphatase 132 U/L (46-116); Anion Gap 8.1 mmol/L (3-11); BUN 9 mg/dL (7-18); Bilirubin, Total 0.6 mg/dL (0.2-1.0); CO2 31.9 mmol/L (21.0-32.0); Calcium 7.4 mg/dL (8.5-10.1); Chloride 102 mmol/L (98-107); Estimated GFR 105.14 (mL/min/1.73m2); Glucose 118 mg/dL (74-106); Magnesium 1.9 mg/dL (1.8-2.4); Sodium 142 mmol/L (136-145); Total Protein 7.4 g/dL (6.4-8.2)
--- NOTE | 2022-03-31 12:56 | NUR.NOTE ---
I spoke with nurse want ad supervisor([place]) who said it was ok to send notes,labs and DI info to [facility] -ED [facility] Nursing Note:
== END 2022-03-31 10:27 | disposition home or self-care (01) ==
PROVIDERS: Emergency Provider Physician Assistant; PCP Family Medicine
DX: E83.51 Hypocalcemia (principal); M62.838 Other muscle spasm
CPT/HCPCS: 36415; 80053; 96374; 99284; 83735; 85025; J3360

== ENCOUNTER 2022-04-01 06:04 | Emergency (ER) | payer MEDICAID, SELFPAY ==
[2022-04-01] VITALS (41 sets, daily range): BP systolic 99–144; BP diastolic 51–93; PULSE 66–103; RESP 9–49; TEMP 36.8; O2SAT 91–97
--- NOTE | 2022-04-01 06:12 | ED.GENADUL_ITS ---
Discharge Plan Disposition Patient Disposition: STILL A PATIENT Condition: Stable Discharge Details Chief Complaint: GenMedical Clinical Impression: Hypocalcemia, Hypomagnesemia Primary Care Provider: Brendon iVvar ED Provider: Richy Eagle Home Meds and New Rx's Prescriptions: No Action methadone 10 mg/5 mL solution 110 mg PO QAM trazodone 100 mg tablet 1 tab PO HS Label Comments: TAKE ONE TABLET BY MOUTH AT BEDTIME penicillin V potassium 500 mg tablet 500 mg PO QID 7 Days Qty: 28 0RF buspirone 10 mg Tablet 20 mg PO TID calcitriol 0.25 mcg capsule 0.25 mcg PO DAILY Qty: 14 0RF magnesium gluconate 27 mg magnesium (500 mg) tablet 27 mg PO BID Qty: 10 0RF sennosides [senna] 8.6 mg tablet 1 tab PO DAILY Label Comments: TAKE TWO TABLETS BY MOUTH AT BEDTIME gabapentin 300 mg capsule 600 mg PO TID Label Comments: TAKE ONE CAPSULE BY MOUTH EVERY 6 HOURS NEEDED NOT TO EXCEED 2 IN 24 HOURS docusate sodium [Colace] 100 mg capsule 100 mg PO DAILY Qty: 60 0RF lorazepam [Ativan] 1 mg Tablet 1 mg PO QID Medical Decision Making 26-year-old male with past medical history of anxiety, high cholesterol,? history of men type I, multiple electrolyte abnormalities, with subsequent parathyroidectomy last week on 03/26/2022 at [facility], and PTSD.? He presents today for spasms. Since the patient's parathyroidectomy he has been to the emergency department at [facility] 5 times, and [place] emergency department 1 time over the last 6 days. Each time the patient presents with spasms, tetany, and pain. His calcium is usually low, as is his magnesium. On the last 5 visits these have been replaced, and after consultation with [facility] it had been recommended that his calcitriol be increased to 0.25 mg twice daily and his Tums increased to 2000 mg 3 times daily, and also increasing his magnesium to 3 times daily. Unfortunately in spite of this on the last visit this morning, he had another episode while in [facility], went to the [place] ER. He states that they did not give me anything, but did give me Ativan to go home with. Patient still has continued symptoms this morning. He states he has been taking his medications as directed. No other complaints at this time. Exam demonstrates mildly tachycardic slightly tense appearing male with a positive chvostic sign and Trousseau sign. Concern for magnesium and calcium depletion again. We will evaluate for these and again reach out to [facility] as the patient's outpatient therapy appears to be notably inconsistent with therapeutic management, even with the multiple increases that have been made 7:19 AM Patient's magnesium and calcium have just returned. Calcium is again low at 6.9 and magnesium is 1.3. I do feel that with these continued low numbers he still does need replenishment and we will recheck department again. Case to be signed out to my colleague Dr. Mecca Bundy for follow-up on [facility] recommendations HPI General Date/Time Provider Initiated Documentation: 04/01/22 06:06 . HPI Narrative: 26-year-old male with past medical history of anxiety, high cholesterol,? history of men type I, multiple electrolyte abnormalities, with subsequent parathyroidectomy last week on 03/26/2022 at [facility], and PTSD.? He presents today for spasms. Since the patient's parathyroidectomy he has been to the emergency department at [facility] 5 times, and [place] emergency department 1 time over the last 6 days. Each time the patient presents with spasms, tetany, and pain. His calcium is usually low, as is his magnesium. On the last 5 visits these have been replaced, and after consultation with [facility] it had been recommended that his calcitriol be increased to 0.25 mg twice daily and his Tums increased to 2000 mg 3 times daily, and also increasing his magnesium to 3 times daily. Unfortunately in spite of this on the last visit this morning, he had another episode while in [facility], went to the [place] ER. He states that they did not give me anything, but did give me Ativan to go home with. Patient still has continued symptoms this morning. He states he has been taking his medications as directed. No other complaints at this time. Related Data Home Medications Medication Instructions Recorded Confirmed methadone 10 mg/5 mL oral solution 110 mg PO QAM 11/16/21 04/01/22 gabapentin 300 mg capsule 600 mg PO TID 12/20/21 04/01/22 sennosides 8.6 mg tablet (senna) 1 tab PO DAILY 12/20/21 04/01/22 docusate sodium 100 mg capsule 100 mg PO DAILY #60 caps 03/13/22 04/01/22 (Colace) penicillin V potassium 500 mg 500 mg PO QID 7 days #28 tabs 03/25/22 04/01/22 tablet trazodone 100 mg tablet 1 tab PO HS 03/25/22 04/01/22 buspirone 10 mg tablet 20 mg PO TID 03/28/22 04/01/22 calcitriol 0.25 mcg capsule 0.25 mcg PO DAILY #14 caps 03/28/22 04/01/22 magnesium gluconate 27 mg 27 mg PO BID #10 tabs 03/28/22 04/01/22 magnesium (500 mg) tablet lorazepam 1 mg tablet (Ativan) 1 mg PO QID 04/01/22 04/01/22 Previous Rx's Medication Instructions Recorded docusate sodium 100 mg capsule 100 mg PO DAILY #60 caps 03/13/22 (Colace) penicillin V potassium 500 mg 500 mg PO QID 7 days #28 tabs 03/25/22 tablet calcitriol 0.25 mcg capsule 0.25 mcg PO DAILY #14 caps 03/28/22 magnesium gluconate 27 mg 27 mg PO BID #10 tabs 03/28/22 magnesium (500 mg) tablet Allergies Allergy/AdvReac Type Severity Reaction Status Date / Time codeine Allergy Intermediate Verified 04/01/22 06:15 General ADRIANA: 4 Review of Systems All systems reviewed & are unremarkable except as noted in HPI and below PFSH All Active Problems (Updated 04/01/22 @ 07:21 by Richy Eagle DO) Abdominal pain (Acute) Abdominal pain (Acute) Abdominal pain (Acute) Hypercalcemia (Acute) Abdominal pain (Acute) Dental infection (Acute) Anxiety (Chronic) Chest pain (Acute) Hypocalcemia (Acute) H/O parathyroidectomy (Acute) Hypocalcemia (Acute) Hypomagnesemia (Acute) Cramping of hands (Acute) Hypomagnesemia (Acute) Hypocalcemia (Acute) Muscle cramping (Acute) Hypocalcemia (Acute) Hypomagnesemia (Acute) Anxiety (Chronic) Depression (Chronic) Depression (Chronic) Suicidal ideation (Acute) Elevated parathyroid hormone (Acute) Hyperlipidemia (Acute) Family history of coronary arteriosclerosis (Chronic) Father of [place] at 50, mother had [place] at 42 Family history of multiple endocrine neoplasia, type 1 (Acute) Severe anxiety with panic (Acute) Hypercalcemia (Acute) PTSD (post-traumatic stress disorder) (Acute) Cellulitis (Acute) Medical History Anxiety in acute stress reaction Cocaine use History of heroin abuse Surgical History No significant past surgical history Family History Mother Anxiety Asthma Depression Sister Anxiety Depression Father Cancer lung & stomach Depression Diabetes Hypertension MEN 1 (multiple endocrine neoplasia) Social History Smoking/Tobacco Use Status: Never Smoking risk assessment performed?: Yes Alcohol Intake: never Drug use: Current 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: 1 month clean Adopted: No Caregiver/Support person: No Foster care: No Household members: none Housing: house Number of Children: 0 Communication Needs: None Education Level: high school Do you need help understanding health information?: Never 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 and animals: Yes (Ally) Pets and animals: dog(s) Sexually active: No Do you think of yourself as: straight/heterosexual Current gender identity: male What is your relationship status?: How often do you talk on the phone with friends or family?: twice per week How often do you get together with friends or relatives?: never Do you belong to any clubs or organized social groups?: no Panel score (0-1 are the most socially isolated patients): 0 What type of physical activity do you participate in: walking Duration: 15-30 minutes/day Frequency: 5-6 times per week Maryam/Mormon: Caodaism Special maryam needs: No Seatbelt use: always Helmet use: Yes Helmet use: always Drive 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 ems 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 Exam Narrative Exam Narrative: 1.Const: Well-nourished, Well-developed, appearing stated age 2.Eyes: PERRL, no conjunctival injection, and symmetrical lids. 3.ENT: Atraumatic external nose and ears. Moist MM. Neck: Symmetric, trachea midline, No thyromegaly. Positive chvostic sign 4.CVS: +S1/S2, No murmurs or gallops. Peripheral pulses 2+ and equal in all extremities. Brisk capillary refill in all extremities. 5.RESP: Unlabored respiratory effort. Clear to auscultation bilaterally. No wheezes rales or rhonchi 6.GI: Soft, Nontender/Nondistended, No hepatosplenomegaly. No guarding or rebound. 7.MSK: Normocephalic/Atraumatic, Extremities w/o deformity or ttp No cyanosis or clubbing, patient's muscles are somewhat tense. Positive Trousseau sign 8.Skin: Warm, Dry. No rashes or lesions. 9.Neuro: terrazzo tile setter II-XII grossly intact. Sensation grossly intact, no focal neurologic deficits. 10.Psych: (AAO) x3. Appropriate mood and affect
[2022-04-01 06:54] LABS: Anion Gap 9.5 mmol/L (3-11); BUN 14 mg/dL (7-18); CO2 30.5 mmol/L (21.0-32.0); CREATININE 1.2 mg/dL (0.70-1.30); Calcium 6.9 mg/dL (8.5-10.1); Chloride 102 mmol/L (98-107); Estimated GFR 84.48 (mL/min/1.73m2); Glucose 104 mg/dL (74-106); Magnesium 1.3 mg/dL (1.8-2.4); Potassium 3.5 mmol/L (3.5-5.1); Sodium 142 mmol/L (136-145)
[2022-04-01] MEDS: CALCIUM GLUCONATE in NaCl 1 GM/50 ML BAG IVPB (07:49)
[2022-04-01] MEDS: MAGNESIUM SULFATE 2 GM/50 ML BAG IVPB (08:04)
[2022-04-01] MEDS: Methadone Liquid 10 MG/ML 110 MG PO (08:18)
--- NOTE | 2022-04-01 08:43 | W.EDPROG ---
Date of service: 04/01/22 Time of Service: 07:30 Medical Decision Making Patient signed out to me by Dr. Eagle at time of shift change with admission/transfer pending for recurrent hypocalcemia/hypomagnesemia. No available beds in the hospital when I assumed care. Very limited beds in the region, awaiting callback from [facility] and [facility], Pt already refused [place] multiple hospitals [place] [facility] 8:30: No availability at [facility]. 9:30 no availability at [place]. ED department secretary continuing to call [facility]. 10:30 patient accepted in transfer by Dr. Velasco of hospital medicine at [facility] in [place], [place] Pt transferred without further issue. Medical Records Medical records reviewed: Yes I reviewed the patient's medical records. ECG Data Attestation: I personally reviewed and interpreted this ECG (s) as follows: Interpretation: EKG shows sinus rhythm at 80, normal axis, QTC 481, no STEMI Sign Out Sign Out Data: Sign Out Comment: Chronic recurrent hypocalcemia and hypomagnesemia. Pending [facility] call back. Giving 2 A of calcium gluconate and 2 g of magnesium Last updated by Richy Eagle DO at 04/01/22 07:22 Discharge Plan Disposition Patient Disposition: STILL A PATIENT Condition: Stable Discharge Details Clinical Impression: Hypocalcemia, Hypomagnesemia Primary Care Provider: Brendon Vivar ED Provider: Liseth Bundy Home Meds and New Rx's Prescriptions: No Action methadone 10 mg/5 mL solution 110 mg PO QAM trazodone 100 mg tablet 1 tab PO HS Label Comments: TAKE ONE TABLET BY MOUTH AT BEDTIME penicillin V potassium 500 mg tablet 500 mg PO QID 7 Days Qty: 28 0RF buspirone 10 mg Tablet 20 mg PO TID calcitriol 0.25 mcg capsule 0.25 mcg PO DAILY Qty: 14 0RF magnesium gluconate 27 mg magnesium (500 mg) tablet 27 mg PO BID Qty: 10 0RF sennosides [senna] 8.6 mg tablet 1 tab PO DAILY Label Comments: TAKE TWO TABLETS BY MOUTH AT BEDTIME gabapentin 300 mg capsule 600 mg PO TID Label Comments: TAKE ONE CAPSULE BY MOUTH EVERY 6 HOURS NEEDED NOT TO EXCEED 2 IN 24 HOURS docusate sodium [Colace] 100 mg capsule 100 mg PO DAILY Qty: 60 0RF lorazepam [Ativan] 1 mg Tablet 1 mg PO QID Discharge Data Discharge Date/Time-TO BE ENTERED AT DEPARTURE: 04/01/22 11:37
[2022-04-01] MEDS: Calcium Gluconate 4.65 MEQ/10 ML VIAL 13.95 MG IVP (08:45)
--- NOTE | 2022-04-01 09:00 | RT.EKG_ITS ---
APPROVED REPORT Exam: Resting ECG Reason for Exam: hypocalcemia Patient Location: E HR:80 bpm ECG Measurements Heart Rate 80 AXIS MD 158 P 42 QRSd 94 QRS 41 QT 416 T 40 QTc 481 Conclusion Sinus rhythm...normal P axis, V-rate 60- 99 sinus rhythm at 80, normal axis, QTC 481, no STEMI I have reviewed and interpreted ECG and agree with software generated interpretation.
[2022-04-01 11:40] LABS: Source Nasal/Nares
[2022-04-01] MEDS: LORazepam 2 MG/ML VIAL (11:40)
[2022-04-01 12:13] LABS: COVID-19 PCR Negative (Negative)
== END 2022-04-01 11:37 | disposition still patient (30) ==
PROVIDERS: Student in an Organized Health Care Education/Training Program; Emergency Provider Student in an Organized Health Care Education/Training Program; PCP Family Medicine
DX: E83.51 Hypocalcemia (principal); E83.42 Hypomagnesemia; R25.2 Cramp and spasm; Z20.822 Contact with and (suspected) exposure to COVID-19
CPT/HCPCS: 36415; 80048; 87635; 93005; 96365; 96366; 96368; 96372; 96375; 99285; 83735; 93010; J0610; J2060

== ENCOUNTER 2022-04-16 10:11 | Emergency (ER) | payer MEDICAID, SELFPAY ==
[2022-04-16] VITALS (26 sets, daily range): BP systolic 97–113; BP diastolic 54–71; PULSE 69–102; RESP 8–23; TEMP 36.9; O2SAT 89–98
--- NOTE | 2022-04-16 10:00 | RT.EKG_ITS ---
APPROVED REPORT Exam: Resting ECG Reason for Exam: chest pain Patient Location: E HR:88 bpm ECG Measurements Heart Rate 88 AXIS OK 172 P 42 QRSd 90 QRS 36 QT 370 T 27 QTc 447 Conclusion Sinus rhythm...normal P axis, V-rate 60- 99
[2022-04-16 10:53] LABS: Abs Immature Grans 0.01 10^3/uL (0.0-0.06); Absolute Basophil Count 0.03 10^3/uL (0.0-0.2); Absolute Eosinophil Count 0.23 10^3/uL (0.0-0.7); Absolute Lymphocyte Count 2.08 10^3/uL (1.2-3.4); Absolute Monocyte Count 1.04 10^3/uL (0.1-0.8); Absolute Neutrophil Count 5.58 10^3/uL (1.2-6.7); Basophils % 0.3; Eosinophils % 2.6; HCT 35.7 % (40.0-50.0); HGB 11.9 g/dL (13.5-17.5); Immature Grans % 0.1; Lymphocytes % 23.2; MCH 30.7 pg (27.0-33.0); MCHC 33.3 % (32.0-36.0); MCV 92 fL (80-95); MPV 11.1 fL (8.0-11.0); Monocytes % 11.6; Neutrophils % 62.2; Platelet Count 261 10^3/uL (130-400); RBC 3.88 10^6/uL (4.36-5.78); RDW 11.5 % (11.8-14.1); RDW-SD 39.1 fL; WBC 8.97 10^3/uL (4.4-10.8)
[2022-04-16 11:10] LABS: ALT 59 U/L (16-63); AST 24 U/L (15-37); Albumin 3.6 g/dL (3.4-5.0); Alkaline Phosphatase 121 U/L (46-116); BUN 12 mg/dL (7-18); Bilirubin, Total 0.3 mg/dL (0.2-1.0); Calcium 8.8 mg/dL (8.5-10.1); Chloride 101 mmol/L (98-107); Estimated GFR 105.14 (mL/min/1.73m2); Glucose 81 mg/dL (74-106); Magnesium 1.5 mg/dL (1.8-2.4); Potassium 4.1 mmol/L (3.5-5.1); Sodium 139 mmol/L (136-145); Total Protein 7.5 g/dL (6.4-8.2); Troponin I < 50 ng/L (<or=60)
[2022-04-16] MEDS: MAGNESIUM SULFATE 1 GM/100 ML BAG IVPB (11:33)
--- NOTE | 2022-04-16 11:44 | ED.GENADUL_ITS ---
Discharge Plan Disposition Patient Disposition: HOME Condition: Stable Discharge Details Clinical Impression: Pain, dental, Hypomagnesemia Primary Care Provider: Brendon Vivar ED Provider: Luh Tsai Home Meds and New Rx's Prescriptions: Continued methadone 10 mg/5 mL solution 110 mg PO QAM trazodone 100 mg tablet 1 tab PO HS Label Comments: TAKE ONE TABLET BY MOUTH AT BEDTIME penicillin V potassium 500 mg tablet 500 mg PO QID 7 Days Qty: 28 0RF buspirone 10 mg Tablet 20 mg PO TID calcitriol 0.25 mcg capsule 0.25 mcg PO DAILY Qty: 14 0RF magnesium gluconate 27 mg magnesium (500 mg) tablet 27 mg PO BID Qty: 10 0RF sennosides [senna] 8.6 mg tablet 1 tab PO DAILY Label Comments: TAKE TWO TABLETS BY MOUTH AT BEDTIME gabapentin 300 mg capsule 600 mg PO TID Label Comments: TAKE ONE CAPSULE BY MOUTH EVERY 6 HOURS NEEDED NOT TO EXCEED 2 IN 24 HOURS docusate sodium [Colace] 100 mg capsule 100 mg PO DAILY Qty: 60 0RF lorazepam [Ativan] 1 mg Tablet 1 mg PO QID calcium carbonate [Tums] 200 mg calcium (500 mg) Tablet,Chewable 5,000 mg PO DIRECTED Discharge Instructions Instructions: Hypomagnesemia (ED), Toothache (ED) Additional Instructions: Please follow-up for your lab work tomorrow Continue take your magnesium and all your electrolyte therapy Called to see if the dentist might be able to see you earlier, and giving you some additional options, please return earlier should you have new or worsening complaints Your dental block will likely wear off in 12 hours Referrals: Brendon Vivar DO [Primary Care Provider] - Medical Decision Making Dental block performed to inferior alveolar nerve with good effect On appropriate antibiotics Has an appointment in June Hypomagnesemia, 1.5, was given 1 g of mag, on mag and calcium at home We will continue on his antibiotics Will follow up with dentist Have an appointment for lab draw regarding his electrolytes tomorrow Return precautions discussed and patient expressed understanding Medical Records Medical records reviewed: Yes I reviewed the patient's medical records. Lab Data Lab results reviewed: Yes I reviewed the patient's lab results. HPI General Date/Time Provider Initiated Documentation: 04/16/22 10:13 . HPI Narrative: This 26-year-old male with history of recent parathyroidectomy, subsequent electrolyte abnormalities, calcium and magnesium, depression, anxiety, polysubstance abuse presents with report of left-sided dental pain with radiation into his jaw and chest. Denies any fever or chills. States he is currently taking antibiotics for this. He was discharged from [facility] where he had a parathyroidectomy yesterday and appropriate electrolyte therapy, he is actually scheduled to have blood work drawn tomorrow for [facility]. He otherwise denies any difficulty swallowing or shortness of breath. He does have an appointment scheduled with the [place] dentist for June for an emergency appointment reportedly. Related Data Home Medications Medication Instructions Recorded Confirmed methadone 10 mg/5 mL oral solution 110 mg PO QAM 11/16/21 04/16/22 gabapentin 300 mg capsule 600 mg PO TID 12/20/21 04/16/22 sennosides 8.6 mg tablet (senna) 1 tab PO DAILY 12/20/21 04/16/22 docusate sodium 100 mg capsule 100 mg PO DAILY #60 caps 03/13/22 04/16/22 (Colace) penicillin V potassium 500 mg 500 mg PO QID 7 days #28 tabs 03/25/22 04/16/22 tablet trazodone 100 mg tablet 1 tab PO HS 03/25/22 04/16/22 buspirone 10 mg tablet 20 mg PO TID 03/28/22 04/16/22 calcitriol 0.25 mcg capsule 0.25 mcg PO DAILY #14 caps 03/28/22 04/16/22 magnesium gluconate 27 mg 27 mg PO BID #10 tabs 03/28/22 04/16/22 magnesium (500 mg) tablet lorazepam 1 mg tablet (Ativan) 1 mg PO QID 04/01/22 04/16/22 calcium carbonate 200 mg calcium 5,000 mg PO DIRECTED 04/16/22 04/16/22 (500 mg) chewable tablet (Tums) Previous Rx's Medication Instructions Recorded docusate sodium 100 mg capsule 100 mg PO DAILY #60 caps 03/13/22 (Colace) penicillin V potassium 500 mg 500 mg PO QID 7 days #28 tabs 03/25/22 tablet calcitriol 0.25 mcg capsule 0.25 mcg PO DAILY #14 caps 03/28/22 magnesium gluconate 27 mg 27 mg PO BID #10 tabs 03/28/22 magnesium (500 mg) tablet Allergies Allergy/AdvReac Type Severity Reaction Status Date / Time codeine Allergy Intermediate Verified 04/16/22 10:20 General Stated Complaint: Chest Pain ADRIANA: 2 Review of Systems All systems reviewed & are unremarkable except as noted in HPI and below PFSH All Active Problems (Updated 04/16/22 @ 11:53 by ANDREW Arriaga) Dental infection (Acute) Anxiety (Chronic) Chest pain (Acute) Hypocalcemia (Acute) H/O parathyroidectomy (Acute) Hypocalcemia (Acute) Hypomagnesemia (Acute) Cramping of hands (Acute) Hypomagnesemia (Acute) Hypocalcemia (Acute) Muscle cramping (Acute) Hypocalcemia (Acute) Hypomagnesemia (Acute) Pain, dental (Acute) Hypomagnesemia (Acute) Anxiety (Chronic) Depression (Chronic) Depression (Chronic) Suicidal ideation (Acute) Elevated parathyroid hormone (Acute) Hyperlipidemia (Acute) Family history of coronary arteriosclerosis (Chronic) Father of MT at 50, mother had MT at 42 Family history of multiple endocrine neoplasia, type 1 (Acute) Severe anxiety with panic (Acute) Hypercalcemia (Acute) PTSD (post-traumatic stress disorder) (Acute) Cellulitis (Acute) Medical History Anxiety in acute stress reaction Cocaine use History of heroin abuse Surgical History No significant past surgical history Family History Mother Anxiety Asthma Depression Sister Anxiety Depression Father Cancer lung & stomach Depression Diabetes Hypertension MEN 1 (multiple endocrine neoplasia) Social History Smoking/Tobacco Use Status: Never Smoking risk assessment performed?: Yes Alcohol Intake: never Drug use: Current 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: 8 mths clean. Adopted: No Caregiver/Support person: No Foster care: No Household members: none Housing: house Number of Children: 0 Communication Needs: None Education Level: high school Do you need help understanding health information?: Never 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 and animals: Yes (Ally) Pets and animals: dog(s) Sexually active: No Do you think of yourself as: straight/heterosexual Current gender identity: male What is your relationship status?: How often do you talk on the phone with friends or family?: twice per week How often do you get together with friends or relatives?: never Do you belong to any clubs or organized social groups?: no Panel score (0-1 are the most socially isolated patients): 0 What type of physical activity do you participate in: walking Duration: 15-30 minutes/day Frequency: 5-6 times per week Maryam/Anabaptism: Worship Special maryam needs: No Seatbelt use: always Helmet use: Yes Helmet use: always Drive 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 bobcat driver/labor: No Do you feel safe at home: Yes Do you feel safe in your relationship?: Yes Exam Const General: cooperative, comfortable and no acute distress [facility] Teeth image: 1. Fracture noted, tenderness Other: Induration, uvula midline, no evidence of deep space infection Eyes Pupils: PERRL Resp Effort & Inspection: normal respiratory effort Auscultation: clear to auscultation bilaterally Cardio Rate: regular rate Rhythm: regular rhythm GI Inspection: normal to inspection Neuro General: patient alert and patient oriented x3 Course Vital Signs Vital signs: Vital Signs Temperature 36.9 C 04/16/22 10:15 Pulse 102 H 04/16/22 10:15 Respiratory Rate 18 04/16/22 10:15 Blood Pressure 108/64 04/16/22 10:15 Pulse Oximetry 97 04/16/22 10:15 Temperature 36.9 C 04/16/22 10:15 Pulse 102 H 04/16/22 10:15 Respiratory Rate 18 04/16/22 10:24 Respiratory Effort Non-Labored 04/16/22 10:24 Respiratory Depth Normal 04/16/22 10:24 Respiratory Pattern Normal 04/16/22 10:24 Blood Pressure 108/64 04/16/22 10:15 Blood Pressure Position Sitting 04/16/22 10:15 Pulse Oximetry 97 04/16/22 10:15 Oxygen Delivery Method Room Air 04/16/22 10:15 Oxygen Flow Rate 0 04/16/22 10:15 Pain Level 5 04/16/22 10:15 Lab/Test Results Lab/Test Results: Laboratory Tests Range/Units 04/16/22 04/16/22 04/16/22 10:35 10:35 10:35 WBC (4.4-10.8) 10^3/uL 8.97 RBC (4.36-5.78) 10^6/uL 3.88 L Hgb (13.5-17.5) g/dL 11.9 L Hct (40.0-50.0) % 35.7 L MCV (80-95) fL 92 MCH (27.0-33.0) pg 30.7 MCHC (32.0-36.0) % 33.3 RDW (11.8-14.1) % 11.5 L Plt Count (130-400) 10^3/uL 261 MPV (8.0-11.0) fL 11.1 H Immature Gran % 0.1 Neutrophils % 62.2 Lymphocytes % 23.2 Monocytes % 11.6 Eosinophils % 2.6 Basophils % 0.3 Nucleated RBC % (0.0-0.3) % 0.0 Absolute Neutrophils (1.2-6.7) 10^3/uL 5.58 Absolute Lymphocytes (1.2-3.4) 10^3/uL 2.08 Absolute Monocytes (0.1-0.8) 10^3/uL 1.04 H Absolute Eosinophils (0.0-0.7) 10^3/uL 0.23 Absolute Basophils (0.0-0.2) 10^3/uL 0.03 Sodium (136-145) mmol/L 139 Potassium (3.5-5.1) mmol/L 4.1 Chloride (98-107) mmol/L 101 Carbon Dioxide (21.0-32.0) mmol/L 36.0 H Anion Gap (3-11) mmol/L 2.0 L BUN (7-18) mg/dL 12 Creatinine (0.70-1.30) mg/dL 1.0 Est GFR (CKD-EPI 2020) (mL/min/1.73m2) 105.14 Glucose (74-106) mg/dL 81 Calcium (8.5-10.1) mg/dL 8.8 Magnesium (1.8-2.4) mg/dL 1.5 L Cancelled Total Bilirubin (0.2-1.0) mg/dL 0.3 AST (15-37) U/L 24 ALT (16-63) U/L 59 Alkaline Phosphatase (46-116) U/L 121 H Troponin I (<or=60) ng/L < 50 Total Protein (6.4-8.2) g/dL 7.5 Albumin (3.4-5.0) g/dL 3.6 Procedures Nerve Block Nerve Block 1: Time out performed: Yes Local Anesthetic: Bupivicaine 0.5% Amount of anesthesia used (mL): 1.5 Side: left Intraoral Nerve Block: inferior alveolar Procedure Successful: Yes Patient Tolerated Procedure: well Complications: none
== END 2022-04-16 12:35 | disposition home or self-care (01) ==
PROVIDERS: Emergency Provider Physician Assistant; PCP Family Medicine
DX: S02.5XXA Fracture of tooth (traumatic), initial encounter for closed fracture (principal); E83.42 Hypomagnesemia; X58.XXXA Exposure to other specified factors, initial encounter
CPT/HCPCS: 80053; 93005; 83735; 84484; 85025; 93010; J3475

== ENCOUNTER 2022-04-18 14:06 | Emergency (ER) | payer MEDICAID, SELFPAY ==
--- OUTSIDE RECORDS SUMMARY | 2022-04-18 14:11 | XMS_ITS | Continuity of Care Document ---
:1995 Author Organization [facility] e Address [address] [place] [address] Encounter LTTL_SC FIN NBR [id number] Date(s): 03/31/22 - 03/31/22 [facility] [address] [place] [address]- Encounter Diagnosis Anxiety (Discharge Diagnosis) - 03/31/22 Hypocalcemia (Discharge Diagnosis) - 03/31/22 Discharge Disposition: Home or Self Care Attending Physician: Berto Davis MD Admitting Physician: Berto Davis MD Allergies, Adverse Reactions, Alerts Substance Reaction Severity Status codeine Unknown Active Assessment and Plan Diagnostic Tests PendingTroponin-I 03/31/22 Functional Status 03/31/22 Other exposure to Infectious Disease None Medications Ativan 1 mg oral tablet 1 mg = 1 tab, Oral, TID, PRN as needed for anxiety, # 12 tab, 0 Refill(s) Start Date: 03/31/22 Status: OrderedbusPIRone 0 Refill(s) Start Date: 03/31/22 Status: Orderedgabapentin 0 Refill(s) Start Date: 03/31/22 Status: Orderedmethadone 0 Refill(s) Start Date: 03/31/22 Status: OrderedTums Antacid Naturals 0 Refill(s) Start Date: 03/31/22 Status: Ordered Mental Status 03/31/22 Eye Opening Response Arthur Spontaneously Best Verbal Response Arthur Oriented Best Motor Response Arthur Obeys commands Arthur Coma Score 15 Results Laboratory List Name Date Automated Diff 03/31/22 CBC w/ Diff 03/31/22 Comprehensive Metabolic Panel 03/31/22 Magnesium Level 03/31/22 Troponin-I 03/31/22 Most recent to oldest [Reference Range]: 1 WBC [4.8-10.8 K/mcL] 7.0 K/mcL (03/31/22 12:52 PM) RBC [4.20-6.10 Million/mcL] 4.15 Million/mcL *LOW* (03/31/22 12:52 PM) Neutro Auto [42.2-75.2 %] 74.1 % (03/31/22 12:52 PM) Lymph Auto [20.5-51.1 %] 16.8 % *LOW* (03/31/22: PM) [place] Auto [1.7-9.3 %] 8.6 % (03/31/22:52 PM) Basophil Auto [0.0-0.2 %] 0.1 % (03/31/22:52 PM) BUN [8-26 mg/dL] 10 mg/dL (03/31/22 PM) Glucose Level [74-106 mg/dL] 127 mg/dL *HI* (03/31/22: PM) Potassium Level [3.5-5.1 mmol/L] 3.1 mmol/L *LOW* (03/31/22 PM) Baso Absolute [0.0-0.2 K/mcL] 0.0 K/mcL (03/31/22:52 PM) MCV [80.0-99.0 fL] 90.1 fL (03/31/22:52 PM) AST [15-41 IntlUnit/L] 24 IntlUnit/L (03/31/22:52 PM) ALT [17-63 IntlUnit/L] 36 IntlUnit/L (03/31/22 12:52 PM) MCHC [32.0-36.0 g/dL] 34.2 g/dL (03/31/22:52 PM) Osmolality [275-295 mOsm/kg] 273 mOsm/kg *LOW* (03/31/22: PM) Troponin-I [<=0.05 ng/mL] <0.01 ng/mL *NA* (03/31/22 PM) Sodium Level [134-143 mmol/L] 136 mmol/L (03/31/22 12:52 PM) Lymph Absolute [1.2-3.4 K/mcL] 1.2 K/mcL (03/31/22:52 PM) Hct [37.0-52.0 %] 37.4 % (03/31/22 12:52 PM) Calcium Level [8.9-10.3 mg/dL] 7.2 mg/dL *LOW* (03/31/22 12:52 PM) [place] Absolute [0.1-0.6 K/mcL] 0.6 K/mcL (03/31/22 12:52 PM) Albumin Level [3.5-5.0 g/dL] 3.7 g/dL (03/31/22 12:52 PM) Protein Total [6.5-8.1 g/dL] 7.6 g/dL (03/31/22 12:52 PM) MCH [27.0-31.0 pg] 30.8 pg (03/31/22:52 PM) Magnesium Level [1.8-2.5 mg/dL] 1.6 mg/dL *LOW* (03/31/22 12:52 PM) Neutro Absolute [1.4-6.5 K/mcL] 5.2 K/mcL (03/31/22 12:52 PM) Bilirubin Total [0.2-1.2 mg/dL] 0.8 mg/dL (03/31/22 12:52 PM) Hgb [12.0-18.0 g/dL] 12.8 g/dL (03/31/22 12:52 PM) Alk Phos [38-130 IntlUnit/L] 111 IntlUnit/L (03/31/22 12:52 PM) MPV [7.4-10.4 fL] 10.5 fL *HI* (03/31/22 12:52 PM) Platelets [130-400 K/mcL] 271 K/mcL (03/31/22 12:52 PM) CO2 [22-32 mmol/L] 25 mmol/L (03/31/22 12:52 PM) Eos Absolute [0.0-0.2 K/mcL] 0.0 K/mcL (03/31/22 12:52 PM) eGFR Non-AA 122 *NA* (03/31/22 12:52 PM) eGFR AA 122 *NA* (03/31/22 12:52 PM) Chloride Level [98-111 mmol/L] 99 mmol/L (03/31/22 12:52 PM) RDW-CV [11.5-14.5 %] 11.9 % (03/31/22 12:52 PM) A/G Ratio 0.9 *NA* (03/31/22 12:52 PM) BUN/Creat Ratio [8.0-20.0] 11.9 (03/31/22 12:52 PM) Globulin 3.9 *NA* (03/31/22 12:52 PM) Imm Gran Absolute 0.02 *NA* (03/31/22 12:52 PM) Imm Gran Auto [0.0-0.5 %] 0.3 % (03/31/22 12:52 PM) NRBC Auto 0 *NA* (03/31/22 12:52 PM) NRBC Absolute 0 *NA* (03/31/22 12:52 PM) Creatinine Level [0.61-1.24 mg/dL] 0.84 mg/dL (03/31/22 12:52 PM) Anion Gap [3.0-12.0] 12.0 (03/31/22 12:52 PM) Eos, Auto [0.00-3.00 %] 0.10 % (03/31/22 12:52 PM) Vital Signs Most recent to oldest 1 2 3 [Reference Range]: Temperature Temporal Artery 36.1 Deg C [36-38 Deg C] (03/31/22 12:33 PM) Peripheral Pulse Rate 79 bpm 69 bpm 68 bpm [60-100 bpm] (03/31/22 3:30 PM) (03/31/22 3:00 PM) (03/31/22 2:30 PM) Heart Rate Monitored 94 bpm 94 bpm 94 bpm [60-100 bpm] (03/31/22 2:30 PM) (03/31/22 2:00 PM) (03/31/22 1:30 PM) Respiratory Rate [12-24 20 br/min br/min] (03/31/22 12:33 PM) Blood Pressure 113/73 mmHg 112/77 mmHg 115/84 mmHg [90-140/60-90 mmHg] (03/31/22 3:30 PM) (03/31/22 3:00 PM) (03/31 2:30 PM) Mean Arterial Pressure Cuff 85 mmHg 87 mmHg 93 m mHg (03/31/22 3:30 PM) (03/31/22 3:00 PM) (03/31/22 2:30 PM) Weight Dosing 95.00 kg (03/31/22 12:48 PM) Height/Length Dosing 175.000 cm (03/31/22 12:48 PM) Social History Social History Type Response Tobacco Never tobacco user Tobacco U se:. Sex Hospital Discharge Instructions Patient [id number]/16/2022 14:47:36Hypocalcemia, AdultHypocalcemia, Adult Hypocalcemia is when the level of calcium in a person's blood is below normal. Calcium is a mineral that is used by the body in many ways. Not having enough blood calcium can affect the nervous system.This can lead to problems with muscles, the heart, and the brain. What are the causes? This condition may be caused by: ??? A deficiency of vitamin D or magnesium or both. ??? Decreased levels of parathyroid hormone (hypoparathyroidism). ??? Kidney function problems. ??? Low levels of a body protein called albumin. ??? Inflammation of the pancreas (pancreatitis). ??? Not taking in enough vitamins and minerals in the diet or having intestinal problems that interfere with nutrient absorption. ??? Certain medicines. What are the signs or symptoms? Some people may not have any symptoms, especially if they have long-term (chronic) hypocalcemia. Symptoms of this condition may include: ??? Numbness and tingling in the fingers, toes, or around the mouth. ??? Muscle twitching, aches, or cramps, especially in the legs, feet, and back. ??? Spasm of the voice box (laryngospasm). This may make it difficult to breath or speak. ??? Fast heartbeats (palpitations) and abnormal heart rhythms (arrhythmias). ??? Shaking uncontrollably (seizures). ??? Memory problems, confusion, or difficulty thinking. ??? Depression, anxiety, irritability, or changes in personality. Long-term symptoms of this condition may include: ??? Coarse, brittle hair and nails. ??? Dry skin or lasting skin diseases (psoriasis, eczema, or dermatitis). ??? Dental cavities. ??? Clouding of the eye lens (cataracts). How is this diagnosed? This condition is usually diagnosed with a blood test. You may also have other tests to help determine the underlying cause of the condition. This may include more blood tests and imaging tests. How is this treated? This condition may be treated with: ??? Calcium given by mouth (orally) or given through an IV. The method used for giving calcium will depend on the severity of the condition. If your condition is severe, you may need to be closely monitored in the hospital. ??? Giving other minerals (electrolytes), such as magnesium. Other treatment will depend on the cause of the condition. Follow these instructions at home: ??? Follow diet instructions from your health care provider or dietitian. ??? Take supplements only as told by your health care provider. ??? Keep all follow-up visits as told by your health care provider. This is important. Contact a health care provider if you: ??? Have increased muscle twitching or cramps. ??? Have new swelling in the feet, ankles, or legs. ??? Develop changes in mood, memory, or personality. Get help right away if you: ??? Have chest pain. ??? Have persistent rapid or irregular heartbeats. ??? Have difficulty breathing. ??? Faint. ??? Start to have seizures. ??? Have confusion. Summary ??? Hypocalcemia is when the level of calcium in a person's blood is below normal. Not having enoughblood calcium can affect the nervous system. This can lead to problems with muscles, the heart, and the brain. ??? This condition may be treated with calcium given by mouth or through an IV, taking other minerals, and treating the underlying cause of hypocalcemia. ??? Take supplements only as told by your health care provider. ??? Contact a health care provider if you have new or worsening symptoms. ??? Keep all follow-up visits as told by your health care provider. This is important. This information is not intended to replace advice given to you by your health care provider. Make sure you discuss any questions you have with your health care provider. Document Revised: 06/11/2019 Document Reviewed: 06/11/2019 [employer] Patient Education ?? 2021 [employer]. 03/31/2022 14:47:34Generalized Anxiety Disorder, AdultGeneralized Anxiety Disorder, Adult Generalized anxiety disorder (DYLLAN) is a mental health condition. Unlike normal worries, anxiety related to DYLLAN is not triggered by a specific event. These worries do not fade or get better with time. DYLLAN interferes with relationships, work, and school. DYLLAN symptoms can vary from mild to severe. People with severe DYLLAN can have intense waves of anxiety with physical symptoms that are similar to panic attacks. What are the causes? The exact cause of DYLLAN is not known, but the following are believed to have an impact: ??? Differences in natural brain chemicals. ??? Genes passed down from parents to children. ??? Differences in the way threats are perceived. ??? Development during childhood. ??? Personality. What increases the risk? The following factors may make you more likely to develop this condition: ??? Being female. ??? Having a family history of anxiety disorders. ??? Being very shy. ??? Experiencing very stressful life events, such as the of a loved one. ??? Having a very stressful family environment. What are the signs or symptoms? People with DYLLAN often worry excessively about many things in their lives, such as their health and family. Symptoms may also include: ??? Mental and emotional symptoms: ??? Worrying excessively about natural disasters. ??? Fear of being late. ??? Difficulty concentrating. ??? Fears that others are judging your performance. ??? Physical symptoms: ??? Fatigue. ??? Headaches, muscle tension, muscle twitches, trembling, or feeling shaky. ??? Feeling like your heart is pounding or beating very fast. ??? Feeling out of breath or like you cannot take a deep breath. ??? Having trouble falling asleep or staying asleep, or experiencing restlessness. ??? Sweating. ??? Nausea, diarrhea, or irritable bowel syndrome (IBS). ??? Behavioral symptoms: ??? Experiencing erratic moods or irritability. ??? Avoidance of new situations. ??? Avoidance of people. ??? Extreme difficulty making decisions. How is this diagnosed? This condition is diagnosed based on your symptoms and medical history. You will also have a physical exam. Your health care provider may perform tests to rule out other possible causes of your symptoms. To be diagnosed with DYLLAN, a person must have anxiety that: ??? Is out of his or her control. ??? Affects several different aspects of his or her life, such as work and relationships. ??? Causes distress that makes him or her unable to take part in normal activities. ??? Includes at least three symptoms of DYLLAN, such as restlessness, fatigue, trouble concentrating, irritability, muscle tension, or sleep problems. Before your health care provider can confirm a diagnosis of DYLLAN, these symptoms must be present moredays than they are not, and they must last for 6 months or longer. How is this treated? This condition may be treated with: ??? Medicine. Antidepressant medicine is usually prescribed for long-term daily control. Anti-anxiety medicines may be added in severe cases, especially when panic attacks occur. ??? Talk therapy (psychotherapy). Certain types of talk therapy can be helpful in treating DYLLAN by providing support, education, and guidance. Options include: ??? Cognitive behavioral therapy (CBT). People learn coping skills and self- calming techniques to ease their physical symptoms. They learn to identify unrealistic thoughts and behaviors and to replace them with more appropriate thoughts and behaviors. ??? Acceptance and commitment therapy (ACT). This treatment teaches people how to be mindful as a way to cope with unwanted thoughts and feelings. ??? Biofeedback. This process trains you to manage your body's response (physiological response) through breathing techniques and relaxation methods. You will work with a therapist while machines are used to monitor your physical symptoms. ??? Stress management techniques. These include yoga, meditation, and exercise. A mental health specialist can help determine which treatment is best for you. Some people see improvement with one type of therapy. However, other people require a combination of therapies. Follow these instructions at home: Lifestyle ??? Maintain a consistent routine and schedule. ??? Anticipate stressful situations. Create a plan, and allow extra time to work with your plan. ??? Practice stress management or self-calming techniques that you have learned from your therapist or your health care provider. General instructions ??? Take [id number] and prescription medicines only as told by your health care provider. ??? Understand that you are likely to have setbacks. Accept this and be kind to yourself as you persist to take better care of yourself. ??? Recognize and accept your accomplishments, even if you property investor them as small. ??? Keep all follow-up visits as told by your health care provider. This is important. Contact a health care provider if: ??? Your symptoms do not get better. ??? Your symptoms get worse. ??? You have signs of depression, such as: ??? A persistently sad or irritable mood. ??? Loss of enjoyment in activities that used to bring you álvaro. ??? Change in weight or eating. ??? Changes in sleeping habits. ??? Avoiding friends or family members. ??? Loss of energy for normal tasks. ??? Feelings of guilt or worthlessness. Get help right away if: ??? You have serious thoughts about hurting yourself or others. If you ever feel like you may hurt yourself or others, or have thoughts about taking your own life, get help right away. Go to your nearest emergency department or: ??? Call your local emergency services (911 in the [place] ??? Call a suicide crisis helpline, such as the National Suicide Prevention Lifeline at . This is open 24 hours a day in the [place] ??? Text the Crisis Text Line at 251924 (in the [place] Summary ??? Generalized anxiety disorder (DYLLAN) is a mental health condition that involves worry that is not triggered by a specific event. ??? People with DYLLAN often worry excessively about many things in their lives, such as their health and family. ??? DYLLAN may cause symptoms such as restlessness, trouble concentrating, sleep problems, frequent sweating, nausea, diarrhea, headaches, and trembling or muscle twitching. ??? A mental health specialist can help determine which treatment is best for you. Some people see improvement with one type of therapy. However, other people require a combination of therapies. This information is not intended to replace advice given to you by your health care provider. Make sure you discuss any questions you have with your health care provider. Document Revised: 03/22/2020 Document Reviewed: 03/22/2020 [email or web address] Patient Education ?? 2021 [employer] Follow Up Care03/31/2022 12:33:44With:Follow up with specialist Address: When:1 week
--- OUTSIDE RECORDS SUMMARY | 2022-04-18 14:12 | XMS_ITS | Encounter Summary ---
:1995 [place] [address] Care Team Providers Name Role Phone Brendon Vivar Primary Care Provider Reason for Visit Reason Comments Post-op Problem parathyroid Auth/Cert Specialty Diagnoses / Procedures Referred By Contact Refer red To Contact Diagnoses Hypocalcemia Oscar Zazueta MD [facility] [place] [address] Referral ID Status Reason Start Date Expiration Date Visits Requ ested Visits Authorized [id number] 1 1 Encounter Details Date Type Department Care Team Description 04/06/2022 - [address] Rosangela Jean MD [facility] [place] [address] Hypocalcemia (Primary Dx); 04/15/2022 Encounter [facility] [place] [address] Chest pain, unspecified type [facility] Pauline Kincaid MD [facility] [place] [address] [facility] [place] [address] [place] [address] Social History Tobacco Use Types Packs/Day Years Used Date Never Smoker Smokeless Tobacco: Never Used Alcohol Use Standard Drinks/Week Comments Not Currently 0 (1 standard drink = 0.6 oz pure alcoho l) Sex Assigned at Date Recorded Not on file documented as of this encounter Last Filed Vital Signs Vital Sign Reading Time Taken Comments Blood Pressure 108/64 04/15/2022 12:57 PM EDT Pulse 98 04/14/2022 5:00 PM EDT Temperature 36.5 ??C (97.7 ??F) 04/15/2022 12:57 PM EDT Respiratory Rate 16 04/15/2022 12:57 PM EDT Oxygen Saturation 96% 04/15/2022 12:57 PM EDT Inhaled Oxygen Concentration - - Weight 93 kg (205 lb) 04/07/2022 3:27 PM EDT Height 177.8 cm (5' 10) 04/07/2022 3:27 PM EDT Body Mass Index 29.41 04/07/2022 3:27 PM EDT documented in this encounter Discharge Summaries Jeff Dhillon MD - 04/15/2022 11:50 AM EDT Inpatient - Discharge Summary Patient Name: Pedro Pablo Cortes Patient Age: 26 y.o. Birthdate: 1995 Admit date: 04/06/2022 Discharge date and time: 04/15/2022 Attending Physician: Elicia att. providers found Code Status: Full Code ID: Pedro Pablo Cortes is a 26 y.o. male with ??anxiety/PTSD,??polysubstance abuse??and??MEN1-associated primary hyperparathyroidism??s/p??parathyroidectomy??03/26/2022 c/b refractory hypocalcemia, who presents to the ED??reporting muscle stiffness,??twitches??as well as??tingling in hands, feet, face, and around his mouth.?? Follow-up Recommendations for Providers: #Please follow-up repeat BMP, mag, phosphorus, albumin #Patient to complete 24-hour urinary collection as an outpatient #Patient to begin chlorthalidone after 24-hour urinary collection Discharge Diagnoses (Hospital Problems) and Secondary Diagnoses (Chronic Problems): Active Hospital Problems Diagnosis ??? Hypocalcemia Resolved Hospital Problems No resolved problems to display. There are no active non-hospital problems to display for this patient. Procedures: Operations: * No surgery found * Other Major Procedures: History of Presentation (per 04/06/2022 Admission H&P): ??Pedro Pablo Cortes??is a 26 y.o.??year old male??with anxiety/PTSD, polysubstance abuse and MEN1-associated primary hyperparathyroidism s/p parathyroidectomy 03/26/2022 c/b refractory hypocalcemia, who presents to the ED reporting muscle stiffness, twitches as well as tingling in hands, feet, face, and around his mouth. ?? States that he has had multiple similar ER presentations since surgery. States he had an episode of muscle spasm and was intubated briefly for airway protection at OSH last week. He endorses muscle twitching, numbness, right sided weakness, blurry vision in his right eye, fatigue, confusion. Reports chest pain, PRABHAKAR which get better with anxiety medications. He also reports 1 week history of rash/skinirritation where the EKG electrodes were attached. Denies nausea, vomiting, abdominal pain, bowel orurinary habit changes. Denies fever, chills, appetite or weight changes. States that he is compliantwith home medications. Denies smoking, drinking alcohol and illicit drug use. Hospital Course: Pedro Pablo Cortes was admitted to the Medicine Service on 04/06/2022 in stable condition. The followingissues were addressed during this admission and he was discharged on 04/15/2022 #MEN1-associated primary hyperparathyroidism??s/p??subtotal??parathyroidectomy??c/b refractory hypoca lcemia #Hypomagnesemia #Hyperphosphatemia Mr. Cortes was admitted to the hospital medicine service. Endocrinology were consulted. He was initially repleted with IV calcium with an initial calcium kim of 7.0 associated with facial paresthesias. His PTH and vitamin D levels returned low. He was treated with calcitriol and ergocalciferol. He was given aggressive calcium repletion with calcium carbonate with subsequent improvement of his calcium levels. Treatment with teriparatide was attempted, but patient did not tolerate injections due to itching at the injection site and development of chest tightness and generalized discomfort which he attributed to the injection. As such, this medication was discontinued. Patient had episodes of chest pain during his stay. High-sensitivity troponins were negative and EKGwas without acute ischemic changes. As such, chest pain was not thought to be due to a cardiac etiology. Patient continues to have intermittent episodes of perioral paresthesias into soreness which shesaid were typical of hypocalcemia for him. Of note, the symptoms also occurred during periods when his calcium was normal. He also complained of acute on chronic diffuse back pain. Plain films were normal. He was also found to be hypomagnesemic. He was given IV magnesium repletion and started on oral magnesium. He will follow-up with endocrinology for additional testing and MEN surveillance. He was discharged on the following regimen: -Calcitriol 1 mcg twice daily -Ergocalciferol 50,000 units weekly x8 weeks -Calcium carbonate 2000 mg 5 times daily -Magnesium oxide 400 mg 4 times daily #Anxiety #PTSD Patient was continued on buspirone 20 mg??TID, fluoxetine 60 mg daily, gabapentin 600 mg TID. ?? #Polysubstance abuse Patient was continued on methadone 110mg QD. ?? #Constipation Patient was continued on home pericolace Day of discharge exam: Patient Vitals for the past 24 hrs: Temp Heart Rate From SP02 Pulse Resp BP SpO2 O2 Device 04/14/22 1700 36.8 ??C (98.2 ??F) 98 bpm 98 16 110/65 94 % RA 04/14/22 2104 37 ??C (98.6 ??F) 66 bpm -- 16 109/63 96 % RA 04/15/22 0841 36.4 ??C (97.5 ??F) 85 bpm -- 16 105/64 98 % RA 04/15/22 1257 36.5 ??C (97.7 ??F) 91 bpm -- 16 108/64 96 % RA Gen: well-appearing, no acute distress, interactive HEENT: normocephalic, anicteric, EOMI, nares patent, OP clear without exudates or ulcers Neck: supple CV: JVP not elevated, regular rate and rhythm with normal s1/2, no murmurs, rubs, or gallops; radialand dorsalis pedis pulses are 2+ bilaterally Pulm: normal work of breathing, lungs are clear to auscultation bilaterally without focal wheezes, rales, or rhonchi Abd: soft, non-distended, non-tender to palpation with normoactive bowel sounds Ext: no cyanosis or clubbing, no lower extremity edema bilaterally Skin: warm, well-perfused without rashes Neuro: alert and oriented to person, place, time; moving all extremities grossly with symmetric facies, fluent language Important Studies and Lab Data: ADMISSION LABS: Recent Labs 04/07/22 0515 04/06/221919 WBC 8.1 8.3 HGB 11.3* 12.5* HCT 32.9* 36.6* PLATELET 227 274 Recent Labs 04/07/22 0515 04/06/221919 NA 139 142 K 3.9 4.1 CL 101 102 CO2 30 29 BUN 9* 8* CREATININE 0.77* 0.84 MAGNESIUM 0.76 0.63* PHOS 7.0* 5.9* Recent Labs 04/07/22514 BILITOT 0.3 BILIDIR 0.1 AST 15 ALT 17 ALKPHOS 119 DISCHARGE BASIC LABS Recent Labs 04/09/22 0100 WBC 8.5 HGB 11.1* HCT 33.2* PLATELET 241 Recent Labs 04/15/22 0451 04/14/22 1351 04/14/22 0317 04/13/22 0522 NA 138 -- 138 137 K 4.4 -- 4.4 4.6 CL 101 -- 100 98 CO2 29 -- 28 31 BUN 14 -- 18 17 CREATININE 0.83 -- 0.88 0.99 MAGNESIUM 0.69 1.00 0.66* 0.75 PHOS 5.7* -- 5.9* 5.6* Lab Results Component Value Date PTH 6 (L) 04/06/2022 CALCIUM 8.0 (L) 04/15/2022 PHOS 5.7 (H) 04/15/2022 25-OH Vit D Total (ng/mL) Date Value Status 04/12/2022 16 (L) Final OTHER LABS: Microbiology: Microbiology Results (Last 30 days) Procedure Component Value Units Date/Time COVID-19 PCR [[id number]] Collected: 04/11/22 1114 Lab Status: Final result Specimen: Nasopharyngeal Swab Updated: 04/11/222054 SARS-CoV-2 RNA PCR Not Detected Comment: This result should be interpreted in combination with the clinical observations, patient history and epidemiological information. For testing of asymptomatic individuals, assay performance characteristics and clinical utility have not been evaluated. Testing for SARS-CoV-2 (Severe acute respiratory syndrome coronavirus 2, formerly known as 2019 novel coronavirus or 2019-nCoV) to aid in the diagnosis of COVID-19 is performed using the Simplexa COVID-19 Direct Assay by [employer] as authorized by the FDA issued Emergency Use Authorization (EUA). This assay is intended for In-vitro Diagnostic (IVD) use with nasopharyngeal swabs collected from individuals meeting the CDC criteria for testing. The assay is performed based on the instructions for use and additional guidance provided by the FDA. Testing is performed in the Microbiology Laboratory within the Department of Pathology and Laboratory Medicine at [facility], certified under the Clinical Laboratory Improvement Amendments of 1988 (CLIA), 42 U.S.C. section 263a, to perform high complexity tests. Assay performance has been verified according to clinical laboratory regulatory requirements. Test results are provided above. A result of Not Detected indicates that the viral RNA target is not present but does not preclude SARS-CoV-2 infection. False negative results may occur if a specimen is improperly collected, transported or handled; if amplification inhibitors are present; or if inadequate numbers of viral particles are present in the specimen. A result of Detected suggests a current or recent infection and the patient is presumed to be infected. Positive and negative predictive values for this test are highly dependent on disease prevalence. A result of Invalid indicates the inability to conclusively determine the presence or absence of SARS-CoV-2 RNA in the sample which can be due to a variety of factors. Recollection is recommended in the case of an invalid result. CDC COVID-19 criteria for testing on human specimens and clinical management guidance information are available at the CDC Coronavirus Disease 2019 (COVID-19) webpage under Information for Healthcare Professionals (https://www.cdc.gov/coronavirus/2019-ncov/hcp/index.html). Additional information about this and other EUA tests can be found in provider and patient fact sheets at the following FDA website: https://www.fda.gov/medical-devices/cqsktocboim-mionmft-3228-fphwd-71-kdkckfpvb- jio-psitqdkpusumem-keadaey-devices/ponwv-nektulnfelw-kkde SARS-CoV-2 Source [employer]BER Swab Pertinent radiology/diagnostic studies: Results for orders placed or performed during the hospital encounter of 04/06/22 CT Head wo Contrast (Generic) (Exam End: 04/06/2022 9:45 PM) Impression No acute intracranial abnormality. Thank you for letting us participate in the care of this patient. If you are a health care provider and have any questions regarding this report, please contact the number below. For patients who have questions please contact the health summer child caregiver that requested your imaging first. Electronically signed by: Brenda Estevez MD, [facility] ([phone]), at 04/06/2022 9:56 PM XR Lumbar Spine 2 Or 3 Views (Generic) (Exam End: 04/14/2022 4:13 PM) Impression Normal lumbar spine. Thank you for letting us participate in the care of this patient. If you are a health care provider and have any questions regarding this report, please contact the number below. For patients who have questions please contact the health summer child caregiver that requested your imaging first. Electronically signed by: Bharath Angel MD, [facility] ([phone]), at 04/14/2022 4:31 PM XR Thoracic Spine 2 views (Exam End: 04/14/2022 4:13 PM) Impression Negative exam of the thoracic spine. Thank you for letting us participate in the care of this patient. If you are a health care provider and have any questions regarding this report, please contact the number below. For patients who have questions please contact the health summer child caregiver that requested your imaging first. Electronically signed by: Bharath Angel MD, [facility] ([phone]), at 04/14/2022 4:30 PM Discharge Conditions/Prognosis: Upon discharge the pt is hemodynamically stable, fully ambulatory without requiring supplemental oxygen, holding down food/drink, afebrile and pain controlled with stable oral regimen. Discharge to: home Discharge Medications: Your Medications New Medications Dose Details amoxicillin-clavulanate 875-125 mg Tab Commonly known as: Augmentin Take 1 tablet by mouth 2 times daily for 9 days. 1 tablet Quantity: 18 tablet Refills: 0 chlorthalidone 15 mg Tab Commonly known as: HYGROTEN Take 1 tablet by mouth daily. Do not start taking until after you have completed your 24 hour urine collection Start taking on: April 22, 2022 15 mg Quantity: 90 tablet Refills: 3 cyclobenzaprine 10 mg Tab Commonly known as: Flexeril Take 1 tablet by mouth 3 times daily as needed for Muscle spasms. 10 mg Quantity: 15 tablet Refills: 0 ergocalciferoL (vitamin D2) 50,000 unit Cap Commonly known as: vitamin D2 Take 1 capsule by mouth once a week. Start taking on: April 20, 2022 50,000 Units Quantity: 4 capsule Refills: 1 magnesium oxide 400 mg (241.3 mg magnesium) Tab Commonly known as: Mag-Ox Take 1 tablet by mouth 4 times daily. 400 mg Quantity: 30 tablet Refills: 12 Continued medications with new dosing Dose Details calciTRIoL 0.5 mcg Cap Commonly known as: Rocaltrol Take 2 capsules by mouth 2 times daily. What changed: how much to take 1 mcg Quantity: 120 capsule Refills: 1 calcium carbonate 200 mg calcium (500 mg) Chew Commonly known as: Tums Take 4 tablets by mouth 5 times daily. What changed: when to take this 2,000 mg Quantity: 360 tablet Refills: 3 senna-docusate 8.6-50 mg Tab Commonly known as: Pericolace Take 2 tablets by mouth 2 times daily. What changed: See the new instructions. 2 tablet Quantity: 60 tablet Refills: 11 Continued medications, unchanged Dose Details busPIRone 10 mg Tab Commonly known as: Buspar Take 2 tablets by mouth 3 times daily. 2 tablet Refills: 0 gabapentin 600 mg Tab Commonly known as: NEURONTIN Take 600 mg by mouth 3 times daily. 600 mg Refills: 0 LORazepam 1 mg Tab Commonly known as: Ativan Take 1 tablet by mouth 3 times daily as needed. 1 mg Quantity: 6 tablet Refills: 0 methadone 10 mg/mL Conc Commonly known as: Dolophine Take 110 mg by mouth every morning. 110 mg Refills: 0 Senna 8.6 mg Tab Take 2 tablets by mouth nightly. Generic drug: senna 2 tablet Refills: 0 traZODone 100 mg Tab Commonly known as: Desyrel Take 1 tablet by mouth nightly. 100 mg Quantity: 30 tablet Refills: 0 STOPPED Medications cloNIDine 0.1 mg Tab Commonly known as: Catapres docusate sodium 100 mg Cap Commonly known as: Colace doxepin 3 mg Tab Commonly known as: Silenor escitalopram 20 mg Tab Commonly known as: Lexapro famotidine 20 mg Tab Commonly known as: Pepcid FLUoxetine 20 mg Cap Commonly known as: PROzac lidocaine 5% Ptmd Commonly known as: Lidoderm omeprazole 20 mg Cpdr Commonly known as: PriLOSEC QUEtiapine 100 mg Tab Commonly known as: SEROquel Slow-Mag 71.5 mg Tbec Generic drug: magnesium chloride Updated Allergies/ADRs: Allergies Allergen Reactions ??? Codeine Tightening of chest, wheezing ??? Morphine Other (See Comments) unknown Instructions Given to Patient at Discharge: Patient Instructions You were hospitalized for low calcium levels (hypocalcemia). 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 You also had other lab abnormalities including low magnesium levels and high phosphorus levels. You were given intravenous supplementation of calcium and have been transitioned to oral calcium supplements. You have also been started on an oral magnesium supplement. In addition, we have started you on vitamin D repletion with both calcitriol and ergocalciferol. You should have repeat lab work done within 3 to 4 days of your discharge. We need to recheck your calcium, magnesium, and phosphorus levels. I have put orders in the system for this to be done. You can come to the [facility] laboratory to have these drawn. You do not need an appointment generally, but I recommend that you call ahead to ensure there have been no policy changes due to COVID. Alternatively, I have submitted lab orders for the [facility] if that is more convenient for you. [facility] and contact lens manufacturer can follow-up on the results. The endocrinology team has started you on a medication called chlorthalidone. This is a diuretic medication. Please do not start taking this until you complete your 24-hour urine collection. Please see below for details of your prescriptions and follow-up appointments. Also, please see below for additional instructions from the endocrinology team. Future Appointments Date Time Provider Department Center 04/25/2022 10:45 AM LAB, [facility] Lab [address] [place] [address] 04/25/2022 11:45 AM Joyce Nelson MD [facility] SURG [facility] 05/14/2022 11:00 AM Karina Montalvo MD [facility] Appointments: You have a hospital follow up appointment scheduled with your primary care provider, Dr. Brendon Vivar, Tuesday April 19, 2022 11:15 General Instructions Endocrine discharge instruction - If you experience tingling/numbness on your extremities, you can take extra Tums 1-2 tablets at a time. - If you have any concerns about worsening of your symptoms, please call our clinic number - You are scheduled to follow up with us in the next 4 weeks. We will be in touch with you about thetest results that are done prior to your schedule. [facility] Endocrinology clinic [phone] Future Appointments and Orders Future Appointments and Orders Future Appointments Provider Department Dept Phone 04/25/2022 10:45 AM LAB, [facility] Lab [address] [place] [address] Arrive at: Employee Placement Specialist Area 3L [phone] 04/25/2022 11:45 AM Joyce Nelson MD General Surgery at [facility] Arrive at: Employee Placement Specialist Area 4L [phone] 05/14/2022 11:00 AM Karina Montalvo MD Endocrinology at [facility] Arrive at: Employee Placement Specialist Area 3A [phone] Future Orders Complete By Expires Albumin Level [LAB45 Custom] 04/15/2022 10/15/2022 Process Instructions: Scheduling Instructions: Comments: Questions: Basic Metabolic Panel (non-fasting) [LAB15 Custom] 04/15/2022 (Approximate) 10/15/2022 Process Instructions: INCLUDES: Calcium, BUN, Creat, GFR, Glucose, Lytes Scheduling Instructions: Comments: Questions: Magnesium [VHU826 Custom] 04/15/2022 (Approximate) 10/15/2022 Process Instructions: Scheduling Instructions: Comments: Questions: Phosphorus [HKQ099 Custom] 04/15/2022 (Approximate) 10/15/2022 Process Instructions: Scheduling Instructions: Comments: Questions: [employer] Devices [EQ161 Custom] As directed Process Instructions: Scheduling Instructions: Comments: Straight can 177.8cm Questions: Device Needed: CANE (E0100) Provider Contact Information: Brendon Vivar DO [address] [place] [address] / [facility] [id number] Discharge References/Attachments: Discharge References/Attachments None documented in this encounter Discharge Instructions Discharge InstructionsKarina Montalvo MD - 04/13/2022 11:37 AM EDT Endocrine discharge instruction - If you experience tingling/numbness on your extremities, you can take extra Tums 1-2 tablets at a time. - If you have any concerns about worsening of your symptoms, please call our clinic number - You are scheduled to follow up with us in the next 4 weeks. We will be in touch with you about thetest results that are done prior to your schedule. [facility] Endocrinology clinic [phone] Patient InstructionsJeff Dhillon MD - 04/12/2022 2:43 PM EDT You were hospitalized for low calcium levels (hypocalcemia). 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 You also had other lab abnormalities including low magnesium levels and high phosphorus levels. You were given intravenous supplementation of calcium and have been transitioned to oral calcium supplements. You have also been started on an oral magnesium supplement. In addition, we have started you on vitamin D repletion with both calcitriol and ergocalciferol. You should have repeat lab work done within 3 to 4 days of your discharge. We need to recheck your calcium, magnesium, and phosphorus levels. I have put orders in the system for this to be done. You can come to the [facility] laboratory to have these drawn. You do not need an appointment generally, but I recommend that you call ahead to ensure there have been no policy changes due to COVID. Alternatively, I have submitted lab orders for the [facility] if that is more convenient for you. [facility] and contact lens manufacturer can follow-up on the results. The endocrinology team has started you on a medication called chlorthalidone. This is a diuretic medication. Please do not start taking this until you complete your 24-hour urine collection. Please see below for details of your prescriptions and follow-up appointments. Also, please see below for additional instructions from the endocrinology team. Future Appointments Date Time Provider Department Center 04/25/2022 10:45 AM LAB, [facility] Lab 3L [facility] 04/25/2022 11:45 AM Joyce Nelson MD [facility] 05/14/2022 11:00 AM Karina Montalvo MD [facility] Appointments: You have a hospital follow up appointment scheduled with your primary care provider, Dr. Brendon Vivar, Tuesday April 19, 2022 11:15 documented in this encounter Medications at Time of Discharge Medication Sig Dispensed Refills Start Date End Date busPIRone (Buspar) 10 mg Take 2 tablets by 0 /2 11/2021 Tablet mouth 3 times daily. gabapentin (NEURONTIN) Take 600 mg by 0 600 mg Tablet mouth 3 times daily. methadone (Dolophine) 10 Take 110 mg by 0 mg/mL Concentrate mouth every morning. calcium carbonate (Tums) Take 4 tablets by 360 tablet 3 03/18 200 mg calcium (500 mg) mouth 5 times Tablet, Chewable daily. ergocalciferoL, vitamin Take 1 capsule by 4 capsule 1 04/20 D2, (vitamin D2) 50,000 mouth once a week. unit Capsule senna-docusate Take 2 tablets by 60 tablet 11 04/15/2022 (Pericolace) 8.6-50 mg mouth 2 times Tablet daily. calciTRIoL (Rocaltrol) Take 2 capsules by 120 capsule 1 03/18 0.5 mcg Capsule mouth 2 times daily. magnesium oxide (Mag-Ox) Take 1 tablet by 30 tablet 12 04/15 400 mg (241.3 mg mouth 4 times magnesium) Tablet daily. amoxicillin-clavulanate Take 1 tablet by 18 tablet 0 202104/24/2022 (Augmentin) 875-125 mg mouth 2 times daily Tablet for 9 days. cyclobenzaprine Take 1 tablet by 15 tablet 0 04/15/2022 (Flexeril) 10 mg Tablet mouth 3 times daily as needed for Muscle spasms. LORazepam (Ativan) 1 mg Take 1 tablet by 6 tablet 0 2021 Tablet mouth 3 times daily as needed. traZODone (Desyrel) 100 Take 1 tablet by 30 tablet 0 2021 mg Tablet mouth nightly. chlorthalidone Take 1 tablet by 90 tablet 3 04/22/2022 (HYGROTEN) 15 mg Tablet mouth daily. Do not start taking until after you have completed your 24 hour urine collection Senna 8.6 mg Tablet Take 2 tablets by 0 2 mouth nightly. documented as of this encounter Progress Notes Roxanne Lanye RN - 04/15/2022 2:53 PM EDT Discharge teaching completed with patient. PIVs d/c'd WNL. Pt walked with cane to main entrance with nurse. D/C home in private vehicle. NAD noted Sonido Peres MD - 04/15/2022 1:52 PM EDT Images from the original note were not included. Endocrinology Follow up Note Name: Pedro Pablo Cortes Date: 04/15/22 Room: [address] [place] [address] Subjective Patient is overall feeling better though still has some numbness/tingling at times. Vitals BP 108/64 (BP Location (NBP): Left arm, Patient Position: Lying) Pulse 98 Temp 36.5 ??C (97.7 ??F) (Oral) Resp 16 Ht 177.8 cm (5' 10) Wt 93 kg (205 lb) SpO2 96% BMI 29.41 kg/m?? Physical Exam: Physical Exam Constitutional: General: He is not in acute distress. Appearance: He is not ill-appearing. Neurological: Mental Status: He is alert. Psychiatric: Behavior: Behavior normal. Current Medications: Scheduled Meds: ??? magnesium oxide 400 mg Oral 4 Times Daily ??? calciTRIoL 1 mcg Oral BID ??? amoxicillin-clavulanate 1 tablet Oral BID ??? acetaminophen 975 mg Oral Q6H LUIS ENRIQUE ??? diclofenac Topical (Top) 4 Times Daily ??? ergocalciferoL (vitamin D2) 50,000 Units Oral Weekly ??? calcium carbonate 2,000 mg Oral 5 Times Daily ??? sodium chloride 0.9 % (flush) 5 mL Intravenous BID ??? enoxaparin 40 mg Subcutaneous Nightly ??? busPIRone 20 mg Oral TID ??? docusate sodium 100 mg Oral Daily ??? famotidine 20 mg Oral BID ??? FLUoxetine 60 mg Oral Daily ??? methadone (Methadose) oral liquid 110 mg Oral Daily ??? gabapentin 600 mg Oral TID ??? senna-docusate 2 tablet Oral BID ??? traZODone 100 mg Oral Nightly Continuous Infusions: PRN Meds:.cyclobenzaprine, ketorolac, hydrocortisone, diphenhydrAMINE, phenoL 1.4%, sodium chloride 0.9 % (flush), lidocaine, LORazepam Labs: Latest Reference Range & Units 02/21/22 15:36 03/26/22 14:27 03/26/22 17:05 04/06/22 19:20 04/07/22 05:15 04/07/22 12:03 04/08/22 04:53 04/08/22 15:47 04/08/22 19:55 04/09/22 01:00 04/09/22 04:39 Calcium 8.5 - 10.5 mg/dL 11.3 (H) 7.7 (L) 7.2 (L) 7.5 (L) 7.0 (L) 7.3 (L) 8.3 (L) 8.6 8.6 8.5 Magnesium 0.69 - 1.07 mmol/L 0.63 (L) 0.76 0.67 (L) 0.76 0.78 Phosphorus 2.5 - 4.5 mg/dL 5.9 (H) 7.0 (H) 6.8 (H) 6.9 (H) 25-OH Vit D Total 21 - 100 ng/mL 11 (L) 25-OH Vit D Interp Deficient Prolactin 4.0 - 15.2 ng/mL 17.8 (H) PTH 15 - 65 pg/mL 152 (H) 12 (L) 6 (L) Intraoper PTH 15 - 65 pg/mL 1,887 (H) Gastrin pg/mL 146 (H) (H): Data is abnormally high (L): Data is abnormally low Assessment and plan: Pedro Pablo Cortes is a 26 y.o.male with PMH significant for MEN 1 diagnosed at age 18 with primary hyperparathyroidism s/p subtotal parathyroidectomy (3.5 glands removed) on 03/26, who was admitted 04/06/2022 after presenting with tingling in his face, hands and feet and now treated for symptomatic hypocalcemia. We were consulted for refractory hypocalcemia. ?? Hypocalcemia 2/2 hypoparathyroidism after parathyroidectomy on 04/06/22 Has been difficult to get patient's calcium into an acceptable range. Currently he is taking Tums 2 g five times daily and calcitriol 1 mcg twice daily. His vitamin D was very low and he was started onhigh-dose replacement weekly dosing for 8 weeks. Teriparatide was attempted for PTH replacement however he had side effects and so this was discontinued. He will be at high risk of nephrolithiasis going forward (he has had many kidney stones in the past with hyperparathyroidism). He will have labs drawn in a few days at [facility] which is close to where he lives to check his calcium level. He will also complete a 24- hour urine collection around that time. After this is done we recommended that he preemptively start on chlorthalidone 15mg to avoid kidney stone formation. I discussed with him that if he is having dizziness/lightheadedness or low blood pressure he may need to discontinue chlorthalidone. He does have a blood pressure machine at home. ?? MEN1 ?? Will plan for further work up as OP. ?? Plan - calcitriol 1 mcg twice daily - calcium carbonate 2000 mg 5 times daily now. Recommend TUMS extra strength (1000 mg) tab 2000 mg 5times daily at home if possible - continue magnesium oxide to 400 mg three times daily - continue vitamin D2 50,000 units to weekly dosing then recheck vit D level in 8 weeks -He will need surveillance in outpatient endocrine clinic for MEN1-related tumors, scheduled in 4 weeks - repeat calcium, albumin, phos, mag in 2-3 days -outpatient 24 hour urine calcium and then start chlorthalidone 25mg daily - Endo clinic number is provided in AVS for concerns of worsening symptoms Thank you for allowing us to participate in the care of this patient. Discussed with attending, Dr. Peres. Jose White Endocrinology Fellow Pager: [phone] Jeff Dhillon MD - 04/15/2022 1:25 PM EDT Hospital Medicine - Attending Day of Discharge Documentation Discharge diagnosis Active Hospital Problems Diagnosis ??? Hypocalcemia Resolved Hospital Problems No resolved problems to display. Secondary Issues There are no active non-hospital problems to display for this patient. I have personally seen and examined the patient and they are ready for discharge. I spent >30 minutes (Day of Discharge Code 42677) involved in the final examination of the patient, discussion of the hospital stay, instructions for continuing care to all relevant caregivers, and preparation of discharge records, prescriptions and referral forms. Plans ? Discharge to home ? Follow-up scheduled with PCP, endocrinology ? Please see the Discharge Summary for complete details of any medication changes and additional plans. Jeff Dhillon MD Precious Paez RN - 04/15/2022 12:38 PM EDT I reviewed a list of DME vendors with patient which serve the preferred geographic area. If patient chooses one of our affiliates, I will provide our affiliate letter. Education was provided about the right to choose where referrals are placed. Patient requests referral to [facility] [place], [place] Expected date of discharge: 04/15/2022. Referral routed to the Mult Au Matic Operator for matching with agency/vendor and to provide any required information. Jeff Dhillon MD - 04/14/2022 11:40 AM EDT Hospital Medicine Attending Daily Progress Note Admit Date: 04/06/2022 ( Hospital Day 8 days ) Active Hospital Problems Diagnosis ??? Hypocalcemia Resolved Hospital Problems No resolved problems to display. Assessment: 26 y.o.??year old male??with??anxiety/PTSD,?polysubstance abuse and MEN1-associated primary hyperparathyroidism??s/p??subtotal??parathyroidectomy??03/26/2022 c/b refractory hypocalcemia here with recurrent symptomatic hypocalcemia Unfortunately, calcium drifted down today and patient developed perioral paresthesias and possible Chovstek's sign. Gave 1 g of IV calcium gluconate and will increase calcitriol to 1 mcg twice daily. Magnesium also low today and will give IV repletion. We will continue to monitor. Hopeful for discharge tomorrow. Plan: #MEN1-associated primary hyperparathyroidism??s/p??subtotal??parathyroidectomy??c/b refractory hypoca lcemia #Hypomagnesemia #Hyperphosphatemia -Recheck calcium this afternoon - Repletion of Vit D per Endocrine recs - Consults to endocrinology and surgical oncology; appreciate recs . -Increase calcitriol to 1.0 mcg twice daily -??Increased??calcium carbonate??to 2000 mg 5x a day .?? -Replete with IV magnesium, increase oral magnesium oxide to 400 mg 4 times daily -Per endocrine, he will need surveillance in outpatient endocrine clinic for??MEN1-related tumors. -Patient has not tolerated teriparatide injections; per discussion with endocrinology, will discontinue for now ?? #Anxiety #PTSD - Continue??buspirone 20 mg??TID - Continue fluoxetine 60 mg daily - Continue gabapentin 600 mg daily -OK to continue previously started ativan for now due to patient having severe anxiety ?? #Polysubstance abuse - Continue methadone 110mg QD ?? #Constipation - Continue home Colace and sennosides/docusate ?? #Chronic Pain -Multifactorial -Tylenol scheduled -Ketorolac and cyclobenzaprine as needed -Continue gabapentin ?? #Post Dental Extraction -Augmentin BID (continuation of INFORMATION SUPPORT PROJECT MANAGER medication) #Routine: -DVT Prophylaxis: Enoxaparin -Diet: Regular -Bowel meds ordered -Lines/Drain/De Luna: PIV -Code Status: Full Jeff Dhillon MD Attending, Hospital Medicine Service Pager # [phone] 04/14/2022 24 Hour Events: None Subjective: Endorses numbness around his mouth and aches in his teeth which is typical when his calcium is low. Also endorses pain in hands. Continues to have chronic back pain which is somewhat worse than baseline. No chest pain or dyspnea. No fevers or chills. Physical Exam Vitals Range last 24 hrs Temperature Temp: [36.7 ??C (98.1 ??F)-36.8 ??C (98.3 ??F)] Heart Rate Heart Rate: -- Blood Pressure BP: (89-121)/(47-75) Respiratory Rate Resp: [13-20] SpO2 SpO2: [94 %-97 %] Intake/Output Summary (Last 24 hours) at 04/14/2022 1140 Last data filed at 04/14/2022 0339 Gross per 24 hour Intake 1150 ml Output -- Net 1150 ml Patient Vitals for the past 168 hrs: Weight 04/07/22 1527 93 kg (205 lb) Weight: Last Weight: 93 kg (205 lb) Admit Weight: 96 kg Body mass index is 29.41 kg/m??. Gen: well-appearing, no acute distress, interactive HEENT: normocephalic, anicteric, EOMI, nares patent, OP clear without exudates or ulcers Neck: supple CV: JVP not elevated, regular rate and rhythm with normal s1/2, no murmurs, rubs, or gallops; radialand dorsalis pedis pulses are 2+ bilaterally Pulm: normal work of breathing, lungs are clear to auscultation bilaterally without focal wheezes, rales, or rhonchi Abd: soft, non-distended, non-tender to palpation with normoactive bowel sounds Ext: no cyanosis or clubbing, no lower extremity edema bilaterally Skin: warm, well-perfused without rashes Neuro: alert and oriented to person, place, time; moving all extremities grossly with symmetric facies, fluent language Studies reviewed in eDH. Remarkable for the following: Labs: Recent Labs 04/09/22 0100 04/08/22 0453 WBC 8.5 6.5 HGB 11.1* 13.6* PLATELET 241 226 Recent Labs 04/14/22 0317 04/13/22 0522 04/12/22 0522 NA 138 137 137 K 4.4 4.6 4.1 CL 100 98 99 CO2 28 31 30 BUN 18 17 13 CREATININE 0.88 0.99 0.86 Recent Labs 04/14/22 0926 04/14/22 0317 04/13/22 1738 04/13/2252104/12/22 1631 04/12/22 05 CALCIUM 7.8* 7.7* 8.3* 8.5 9.7 9.2 MAGNESIUM -- 0.66* -- 0.75 -- 0.71 PHOS -- 5.9* -- 5.6* 4.1 5.7* No results for input(s): AST, ALT, ALKPHOS, BILITOT, BILIDIR in the last 168 hours. No results for input(s): TROPONINT, CK in the last 168 hours. No results for input(s): PHART, PFL7RKQ, PO2ART, NLR2BPS in the last 168 hours. Micro: No results found for: URINECULTURE No results found for: GRAMSTAIN, BFCX, LOWERRESPCX, TISSUECX No results found for: BLOODCX ECG: Lab Results Component Value Date/Time DIAGLINE 04/13/20222312 Normal sinus rhythm Normal ECG When compared with ECG of 12-APR-2022 13:25, No significant change was found QTCCALC 450 04/13/20222312 Imaging: Results for orders placed or performed during the hospital encounter of 04/06/22 CT Head wo Contrast (Generic) (Exam End: 04/06/2022 9:45 PM) Impression No acute intracranial abnormality. Thank you for letting us participate in the care of this patient. If you are a health care provider and have any questions regarding this report, please contact the number below. For patients who have questions please contact the health summer child caregiver that requested your imaging first. Electronically signed by: Brenda Estevez MD, [facility] ([phone]), at 04/06/2022 9:56 PM Inpatient Medications: Scheduled ??? magnesium oxide 400 mg Oral 4 Times Daily ??? magnesium sulfate 2 g Intravenous Q2H ??? calciTRIoL 1 mcg Oral BID ??? calciTRIoL 0.5 mcg Oral Once ??? amoxicillin-clavulanate 1 tablet Oral BID ??? acetaminophen 975 mg Oral Q6H LUIS ENRIQUE ??? diclofenac Topical (Top) 4 Times Daily ??? ergocalciferoL (vitamin D2) 50,000 Units Oral Weekly ??? calcium carbonate 2,000 mg Oral 5 Times Daily ??? sodium chloride 0.9 % (flush) 5 mL Intravenous BID ??? enoxaparin 40 mg Subcutaneous Nightly ??? busPIRone 20 mg Oral TID ??? cloNIDine 0.1 mg Oral Daily ??? docusate sodium 100 mg Oral Daily ??? famotidine 20 mg Oral BID ??? FLUoxetine 60 mg Oral Daily ??? methadone (Methadose) oral liquid 110 mg Oral Daily ??? gabapentin 600 mg Oral TID ??? senna-docusate 2 tablet Oral BID ??? traZODone 100 mg Oral Nightly Continuous infusions: PRN: cyclobenzaprine, ketorolac, hydrocortisone, diphenhydrAMINE, phenoL 1.4%, sodium chloride 0.9 %(flush), lidocaine, LORazepam IPI Certification I certify that I am a [facility] credentialed attending provider with admitting privileges and that the patient meets or has met medical necessity to require an inpatient IPI level of care meeting a minimum of two midnights or is on the [facility] inpatient only procedure list (status C) due to: monitoring of fluidstatus given an inability to regulate fluid balance and the need for administration or restriction of fluids and hypocalcemia requiring IV correction and endocrine consultation Jeff Dhillon MD Alan Dinero MD - 04/14/2022 9:04 AM EDT Images from the original note were not included. Endocrinology Follow up Note Name: Pedro Pablo Cortes Date: 04/14/22 Room: [address] [place] [address] Reason for Consult: hypocalcemia ID: Pedro Pablo Cortes is a 26 y.o.male with PMH significant for MEN 1 diagnosed at age 18 with primary hyperparathyroidism s/p subtotal parathyroidectomy (3.5 glands removed) on 03/26, who was admitted 04/06/2022 after presenting with tingling in his face, hands and feet and now treated for symptomatic hypocalcemia. We were consulted for refractory hypocalcemia. Interim Events: Patient resumed teriparatide at noon yesterday but did not tolerate the medication. Also complaint about chest pain, lightheadedness and jaw pain overnight. Troponin was negative. His calcium was 8.0 (corrected) this morning with facial numbness. He is getting mag and calcium IV. Review of Systems Cardio: chest pain MSK: jaw pain Neuro: facial numbness Vitals BP 95/61 (BP Location (NBP): Left arm, Patient Position: Lying) Pulse 98 Temp 36.7 ??C (98.1 ??F) (Oral) Resp 16 Ht 177.8 cm (5' 10) Wt 93 kg (205 lb) SpO2 95% BMI 29.41 kg/m?? Physical Exam: HEENT: Chovstek's sign positive Current Medications: Scheduled Meds: ??? magnesium oxide 400 mg Oral 4 Times Daily ??? calcium gluconate 1 g Intravenous Once ??? magnesium sulfate 2 g Intravenous Q2H ??? amoxicillin-clavulanate 1 tablet Oral BID ??? acetaminophen 975 mg Oral Q6H LUIS ENRIQUE ??? diclofenac Topical (Top) 4 Times Daily ??? calciTRIoL 0.5 mcg Oral BID ??? ergocalciferoL (vitamin D2) 50,000 Units Oral Weekly ??? calcium carbonate 2,000 mg Oral 5 Times Daily ??? sodium chloride 0.9 % (flush) 5 mL Intravenous BID ??? enoxaparin 40 mg Subcutaneous Nightly ??? busPIRone 20 mg Oral TID ??? cloNIDine 0.1 mg Oral Daily ??? docusate sodium 100 mg Oral Daily ??? famotidine 20 mg Oral BID ??? FLUoxetine 60 mg Oral Daily ??? methadone (Methadose) oral liquid 110 mg Oral Daily ??? gabapentin 600 mg Oral TID ??? senna-docusate 2 tablet Oral BID ??? traZODone 100 mg Oral Nightly Continuous Infusions: PRN Meds:.cyclobenzaprine, ketorolac, hydrocortisone, diphenhydrAMINE, phenoL 1.4%, sodium chloride 0.9 % (flush), lidocaine, LORazepam Imagin03/13/2022 Narrative & Impression EXAMINATION: MRI PITUITARY WWO CONTRAST ?? CLINICAL HISTORY: Patient with MEN-1 (not followed); reports headaches, vision changes, has elevated prolactin Patient with MEN-1 (not followed); reports headaches, vision changes, has elevated prolactin ? TECHNIQUE: MRI of the brain was performed before and following the intravenous administration of 19 cc Dotarem. ?? COMPARISON: None ?? FINDINGS: The pituitary gland is normal in appearance with normal posterior pituitary T1 hyperintensity. There is normal uniform enhancement of the pituitary gland. The cavernous sinuses are normal. The optic chiasm, prechiasmatic optic nerves and visualized post chiasmatic optic pathways are normal. Unremarkable appearance of the infundibulum in the hypothalamus. The visualized cerebral parenchyma is unremarkable. The ventricles are normal in size and configuration. Major intracranial flow voids are patent. The visualized paranasal sinuses are clear. ?? IMPRESSION Normal MRI of the pituitary gland. ?? 03/15/2022 ?? Narrative & Impression EXAMINATION: CT ABDOMEN AND PELVIS W CONTRAST ?? 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 TECHNIQUE: Helical CT of the abdomen ??was performed following the intravenous administration of contrast. Administered 115.0 ml of OMNIPAQUE 350.00 mg/ml. Oral contrast was administered. Arterial and portal venous phase images were obtained. Although an abdomen and pelvis exam was ordered and protocol for, only images of the abdomen were obtained. The patient will return for additional images of the pelvis. ?? COMPARISON: None ?? FINDINGS: ?? Lower chest: Normal. ?? Liver: Normal size. No enhancing lesions. A 1.7 cm region of low attenuation is seen adjacent to the falciform ligament, felt to be focal fatty change or focal hypoperfusion. It is not a suspicious lesion. Bile ducts: Nondilated. Gallbladder: No calcified gallstones. Normal caliber wall. Pancreas: Normal attenuation without ductal dilatation. Spleen: Normal. Adrenals: Normal. Kidneys: 11 mm cyst upper pole LEFT kidney. No renal masses. No collecting system obstruction bilaterally. Vasculature: No aneurysm. Lymph Nodes: No enlarged lymph nodes. Bowel: Nondilated, no wall thickening. ?? Peritoneum and mesentery: No ascites, free air, or loculated fluid collection. No mesenteric inflammation. Abdominal wall: Normal. ? Osseous structures: No suspicious lesions. ?? IMPRESSION ?? Normal abdominal exam. As described above, due to technical error, the pelvis was not imaged. The patient will return for additional images of the pelvis. ?? Pathology: 03/26/22 DIAGNOSIS A - Right lower parathyroid, excision: Parathyroid gland and adipose tissue B - Right upper parathyroid, excision: Parathyroid ??gland and one benign ??lymph node C - Right central neck content, excision: One benign lymph node D - Left upper parathyroid, excision: Enlarged, hypercellular parathyroid gland E - Left cervical thymus, excision: Benign thymic tissue F - Left lower parathyroid, excision: Parathyroid gland and adipose tissue Labs: Recent Labs 04/14/22 0317 04/13/22 1738 04/13/22 0522 04/12/22 1631 04/12/22 0522 04/11/22 1812 04/11/22 0759 04/10/22 1723 04/10/22 1027 04/10/22 0443 04/10/22 0026 04/09/22 1954 CALCIUM 7.7* 8.3* 8.5 9.7 9.2 9.5 Not Perf 8.0* 9.2 8.7 8.0* 8.6 8.5 Recent Labs 04/14/22 0317 04/13/22 0522 04/12/22 0522 04/11/22 0759 04/09/22 0100 04/08/22 1547 04/08/22 0453 MAGNESIUM 0.66* 0.75 0.71 0.72 0.78 0.76 0.67* Recent Labs 04/14/22 0317 04/13/22 0522 04/12/22 1631 04/12/22 0522 04/11/22 0759 04/09/22 0100 04/08/22 0453 PHOS 5.9* 5.6* 4.1 5.7* 5.4* 6.9* 6.8* ?? Latest Reference Range & Units 04/06/22 19:20 04/07/22 05:15 Creatinine 0.80 - 1.50 mg/dL 0.84 0.77 (L) Albumin 3.2 - 5.2 g/dL ?? 3.5 PTH 15 - 65 pg/mL 6 (L) ?? Latest Reference Range & Units 04/06/22 19:20 04/12/22 05:22 25-OH Vit D Total 21 - 100 ng/mL 11 (L) 16 (L) Latest Reference Range & Units 04/08/22 12:40 Ca/Cre Ratio ratio 0.11 U Calcium mg/dL 3.8 U Creatinine mg/dL 36 ? Latest Reference Range & Units 02/21/22 15:36 Chromogranin A <93 ng/mL 81 Prolactin 4.0 - 15.2 ng/mL 17.8 (H) Gastrin pg/mL 146 (H) Assessment and plan: Pedro Pablo Cortes is a 26 y.o.male with PMH significant for MEN 1 diagnosed at age 18 with primary hyperparathyroidism s/p subtotal parathyroidectomy (3.5 glands removed) on 03/26, who was admitted 04/06/2022 after presenting with tingling in his face, hands and feet and now treated for symptomatic hypocalcemia. We were consulted for refractory hypocalcemia. Hypocalcemia 2/2 hypoparathyroidism after post-op parathyroidectomy on 04/06/22 His calcium is still fluctuated and now down to 8.0 with symptoms while on TUMS 5 times a day. Sincehe cannot tolerate teriparatide, we will increase calcitriol to 1 mcg bid to maintain his calcium. If experiencing numbness/tingling, can give extra TUMS and avoid IV calcium to prepare patient for discharge. Will monitor phos while on high dose active vit D. MEN1 ?? Will plan for further work up as OP. Plan - increase calcitriol to 1 mcg twice daily - calcium carbonate to 2000 mg 5 times daily now. Recommend TUMS extra strength (1000 mg) tab 2000 mg 5 times daily at home if possible - continue magnesium oxide to 400 mg three times daily - continue vitamin D2 50,000 units to weekly dosing then recheck vit D level in 8 weeks -He will need surveillance in outpatient endocrine clinic for MEN1-related tumors, scheduled in 4 weeks - If he were to be discharged, will need repeat calcium, albumin, phos, mag in 2-3 days - Endo clinic number is provided in AVS for concerns of worsening symptoms Thank you for allowing us to participate in the care of this patient. D/W Dr. Dinero. Karina Montalvo MD [facility] PGY-4, Fellow Pager #[phone] I have seen the patient and reviewed Dr Marc's history and I agree with the details as written. The assessment and plan were formulated in discussion with me and I agree with them as documented. Alan Dinero MD Plant Physiology Teachersubstance abuse prevention coordinator Endocrinology Section [facility] Jeff Dhillon MD - 04/13/2022 2:00 PM EDT Hospital Medicine Attending Daily Progress Note Admit Date: 04/06/2022 ( Hospital Day 7 days ) Active Hospital Problems Diagnosis ??? Hypocalcemia Resolved Hospital Problems No resolved problems to display. Assessment: 26 y.o.??year old male??with??anxiety/PTSD,?polysubstance abuse and MEN1-associated primary hyperparathyroidism??s/p??subtotal??parathyroidectomy??03/26/2022 c/b refractory hypocalcemia here with recurrent symptomatic hypocalcemia Patient remains clinically stable. Reattempted teriparatide injection today. Did not tolerate well. Discussed with endocrinology, and will stop teriparatide. Hopeful for discharge tomorrow. Plan: #MEN1-associated primary hyperparathyroidism??s/p??subtotal??parathyroidectomy??c/b refractory hypoca lcemia #Hypomagnesemia #Hyperphosphatemia - Calcium every 12 hours with goal of >8-8.5 - Repletion of Vit D per Endocrine recs - Consults to endocrinology and surgical oncology; appreciate recs . -Continue calcitriol at 0.5 mcg twice daily -??Increased??calcium carbonate??to 2000 mg 5x a day .?? -Increase??magnesium oxide to??400 mg TID -Per endocrine, he will need surveillance in outpatient endocrine clinic for??MEN1-related tumors. -patient will need teriparatide 20 mcg BID which will need a prior auth, being administered to see if tolerated. Patient attempting to have consistent dosing for 24 hours prior to discharge ?? #Anxiety #PTSD - Continue??buspirone 20 mg??TID - Continue fluoxetine 60 mg daily - Continue gabapentin 600 mg daily -OK to continue previously started ativan for now due to patient having severe anxiety ?? #Polysubstance abuse - Continue methadone 110mg QD ?? #Constipation - Continue home Colace and sennosides/docusate ?? #Chronic Pain -Multifactorial -Adding NSAID - toradol, can be switched to ibuprofen -Tylenol scheduled -Cyclobenzaprine -Consider adding gabapentin ?? #Post Dental Extraction -Augmentin BID (continuation of INFORMATION SUPPORT PROJECT MANAGER medication) #Routine: -DVT Prophylaxis: Enoxaparin -Diet: Regular -Bowel meds ordered -Lines/Drain/De Luna: PIV -Code Status: Full Jeff Dhillon MD Attending, Hospital Medicine Service Pager # [phone] 04/13/2022 24 Hour Events: None Subjective: Endorses chronic back pain little worse than baseline. No numbness or tingling in his lower extremities. No fevers or chills. No chest pain or dyspnea. No abdominal pain, nausea, vomiting, diarrhea. Physical Exam Vitals Range last 24 hrs Temperature Temp: [36.2 ??C (97.2 ??F)-36.8 ??C (98.2 ??F)] Heart Rate Heart Rate: -- Blood Pressure BP: (87-113)/(47-82) Respiratory Rate Resp: [14-20] SpO2 SpO2: [93 %-98 %] Intake/Output Summary (Last 24 hours) at 04/13/2022 1400 Last data filed at 04/13/2022 1200 Gross per 24 hour Intake 1920 ml Output -- Net 1920 ml Patient Vitals for the past 168 hrs: Weight 04/07/22 1527 93 kg (205 lb) 04/06/22 1814 96 kg (211 lb 10.3 oz) Weight: Last Weight: 93 kg (205 lb) Admit Weight: 96 kg Body mass index is 29.41 kg/m??. Gen: well-appearing, no acute distress, interactive HEENT: normocephalic, anicteric, EOMI, nares patent, OP clear without exudates or ulcers Neck: supple CV: JVP not elevated, regular rate and rhythm with normal s1/2, no murmurs, rubs, or gallops; radialand dorsalis pedis pulses are 2+ bilaterally Pulm: normal work of breathing, lungs are clear to auscultation bilaterally without focal wheezes, rales, or rhonchi Abd: soft, non-distended, non-tender to palpation with normoactive bowel sounds Ext: no cyanosis or clubbing, no lower extremity edema bilaterally Skin: warm, well-perfused without rashes Neuro: alert and oriented to person, place, time; moving all extremities grossly with symmetric facies, fluent language Studies reviewed in eDH. Remarkable for the following: Labs: Recent Labs 04/09/22 0100 04/08/22 0453 04/07/22 0515 WBC 8.5 6.5 8.1 HGB 11.1* 13.6* 11.3* PLATELET 241 226 227 Recent Labs 04/13/22 0504/12/22 0522 04/11/22 0759 NA 137 137 139 K 4.6 4.1 4.3 CL 98 99 98 CO2 31 30 Not Perf BUN 17 13 9* CREATININE 0.99 0.86 0.77* Recent Labs 04/13/22 0522 04/12/22 1631 04/12/22 0522 04/11/22 1812 04/11/22 0759 CALCIUM 8.5 9.7 9.2 < > Not Perf 8.0* MAGNESIUM 0.75 -- 0.71 -- 0.72 PHOS 5.6* 4.1 5.7* -- 5.4* < > = values in this interval not displayed. Recent Labs 04/07/22 05 AST 15 ALT 17 ALKPHOS 119 BILITOT 0.3 BILIDIR 0.1 No results for input(s): TROPONINT, CK in the last 168 hours. No results for input(s): PHART, BFP4IIK, PO2ART, AXO1ZNH in the last 168 hours. Micro: No results found for: URINECULTURE No results found for: GRAMSTAIN, BFCX, LOWERRESPCX, TISSUECX No results found for: BLOODCX ECG: Lab Results Component Value Date/Time DIAGLINE 04/12/2022 1325 Normal sinus rhythm Poor R wave progression Abnormal ECG When compared with ECG of 11-APR-2022 10:34, (unconfirmed) QT has shortened Confirmed by MD Aaron, John ([id number]) on 04/12/2022 2:52:40 PM QTCCALC 411 04/12/2022 1325 Imaging: Results for orders placed or performed during the hospital encounter of 04/06/22 CT Head wo Contrast (Generic) (Exam End: 04/06/2022 9:45 PM) Impression No acute intracranial abnormality. Thank you for letting us participate in the care of this patient. If you are a health care provider and have any questions regarding this report, please contact the number below. For patients who have questions please contact the health summer child caregiver that requested your imaging first. Inpatient Medications: Scheduled ??? amoxicillin-clavulanate 1 tablet Oral BID ??? acetaminophen 975 mg Oral Q6H LUIS ENRIQUE ??? diclofenac Topical (Top) 4 Times Daily ??? calciTRIoL 0.5 mcg Oral BID ??? ergocalciferoL (vitamin D2) 50,000 Units Oral Weekly ??? calcium carbonate 2,000 mg Oral 5 Times Daily ??? magnesium oxide 400 mg Oral TID ??? sodium chloride 0.9 % (flush) 5 mL Intravenous BID ??? enoxaparin 40 mg Subcutaneous Nightly ??? busPIRone 20 mg Oral TID ??? cloNIDine 0.1 mg Oral Daily ??? docusate sodium 100 mg Oral Daily ??? famotidine 20 mg Oral BID ??? FLUoxetine 60 mg Oral Daily ??? methadone (Methadose) oral liquid 110 mg Oral Daily ??? gabapentin 600 mg Oral TID ??? senna-docusate 2 tablet Oral BID ??? traZODone 100 mg Oral Nightly Continuous infusions: PRN: cyclobenzaprine, ketorolac, hydrocortisone, diphenhydrAMINE, phenoL 1.4%, sodium chloride 0.9 %(flush), lidocaine, LORazepam IPI Certification I certify that I am a [facility] credentialed attending provider with admitting privileges and that the patient meets or has met medical necessity to require an inpatient IPI level of care meeting a minimum of two midnights or is on the [facility] inpatient only procedure list (status C) due to: monitoring of fluidstatus given an inability to regulate fluid balance and the need for administration or restriction of fluids and hypocalcemia requiring IV correction and endocrine consultation Jeff Dhillon MD Alan Dinero MD - 04/13/2022 10:50 AM EDT Images from the original note were not included. Endocrinology Follow up Note Name: Pedro Pablo Cortes Date: 04/13/22 Room: [address] [place] [address] Reason for Consult: hypocalcemia ID: Pedro Pablo Cortes is a 26 y.o.male with PMH significant for MEN 1 diagnosed at age 18 with primary hyperparathyroidism s/p subtotal parathyroidectomy (3.5 glands removed) on 03/26, who was admitted 04/06/2022 after presenting with tingling in his face, hands and feet and now treated for symptomatic hypocalcemia. We were consulted for refractory hypocalcemia. Interim Events: Patient refused to get the injection of teriparatide. He endorsed moderate- severe back pain and facial flushing after the injection and reluctant to be on the medication. [place] better without injection last night and this morning. Otherwise does not have any tingling sensation. Review of Systems MSK: back pain Vitals BP 99/54 (BP Location (NBP): Left arm) Pulse 98 Temp 36.6 ??C (97.8 ??F) (Oral) Resp 14 Ht 177.8 cm (5' 10) Wt 93 kg (205 lb) SpO2 93% BMI 29.41 kg/m?? Physical Exam: GA: lying in bed without acute distress Neuro: no numbness/tingling Current Medications: Scheduled Meds: ??? amoxicillin-clavulanate 1 tablet Oral BID ??? acetaminophen 975 mg Oral Q6H LUIS ENRIQUE ??? diclofenac Topical (Top) 4 Times Daily ??? calciTRIoL 0.5 mcg Oral BID ??? ergocalciferoL (vitamin D2) 50,000 Units Oral Weekly ??? teriparatide 20 mcg Subcutaneous BID ??? calcium carbonate 2,000 mg Oral 5 Times Daily ??? magnesium oxide 400 mg Oral TID ??? sodium chloride 0.9 % (flush) 5 mL Intravenous BID ??? enoxaparin 40 mg Subcutaneous Nightly ??? busPIRone 20 mg Oral TID ??? cloNIDine 0.1 mg Oral Daily ??? docusate sodium 100 mg Oral Daily ??? famotidine 20 mg Oral BID ??? FLUoxetine 60 mg Oral Daily ??? methadone (Methadose) oral liquid 110 mg Oral Daily ??? gabapentin 600 mg Oral TID ??? senna-docusate 2 tablet Oral BID ??? traZODone 100 mg Oral Nightly Continuous Infusions: PRN Meds:.cyclobenzaprine, ketorolac, hydrocortisone, diphenhydrAMINE, phenoL 1.4%, sodium chloride 0.9 % (flush), lidocaine, LORazepam Imagin03/13/2022 Narrative & Impression EXAMINATION: MRI PITUITARY WWO CONTRAST ?? CLINICAL HISTORY: Patient with MEN-1 (not followed); reports headaches, vision changes, has elevated prolactin Patient with MEN-1 (not followed); reports headaches, vision changes, has elevated prolactin ? TECHNIQUE: MRI of the brain was performed before and following the intravenous administration of 19 cc Dotarem. ?? COMPARISON: None ?? FINDINGS: The pituitary gland is normal in appearance with normal posterior pituitary T1 hyperintensity. There is normal uniform enhancement of the pituitary gland. The cavernous sinuses are normal. The optic chiasm, prechiasmatic optic nerves and visualized post chiasmatic optic pathways are normal. Unremarkable appearance of the infundibulum in the hypothalamus. The visualized cerebral parenchyma is unremarkable. The ventricles are normal in size and configuration. Major intracranial flow voids are patent. The visualized paranasal sinuses are clear. ?? IMPRESSION Normal MRI of the pituitary gland. ?? 03/15/2022 ?? Narrative & Impression EXAMINATION: CT ABDOMEN AND PELVIS W CONTRAST ?? 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 TECHNIQUE: Helical CT of the abdomen ??was performed following the intravenous administration of contrast. Administered 115.0 ml of OMNIPAQUE 350.00 mg/ml. Oral contrast was administered. Arterial and portal venous phase images were obtained. Although an abdomen and pelvis exam was ordered and protocol for, only images of the abdomen were obtained. The patient will return for additional images of the pelvis. ?? COMPARISON: None ?? FINDINGS: ?? Lower chest: Normal. ?? Liver: Normal size. No enhancing lesions. A 1.7 cm region of low attenuation is seen adjacent to the falciform ligament, felt to be focal fatty change or focal hypoperfusion. It is not a suspicious lesion. Bile ducts: Nondilated. Gallbladder: No calcified gallstones. Normal caliber wall. Pancreas: Normal attenuation without ductal dilatation. Spleen: Normal. Adrenals: Normal. Kidneys: 11 mm cyst upper pole LEFT kidney. No renal masses. No collecting system obstruction bilaterally. Vasculature: No aneurysm. Lymph Nodes: No enlarged lymph nodes. Bowel: Nondilated, no wall thickening. ?? Peritoneum and mesentery: No ascites, free air, or loculated fluid collection. No mesenteric inflammation. Abdominal wall: Normal. ? Osseous structures: No suspicious lesions. ?? IMPRESSION ?? Normal abdominal exam. As described above, due to technical error, the pelvis was not imaged. The patient will return for additional images of the pelvis. ?? Pathology: 03/26/22 DIAGNOSIS A - Right lower parathyroid, excision: Parathyroid gland and adipose tissue B - Right upper parathyroid, excision: Parathyroid ??gland and one benign ??lymph node C - Right central neck content, excision: One benign lymph node D - Left upper parathyroid, excision: Enlarged, hypercellular parathyroid gland E - Left cervical thymus, excision: Benign thymic tissue F - Left lower parathyroid, excision: Parathyroid gland and adipose tissue Labs: Recent Labs 04/13/22 0522 04/12/22 1631 04/12/22 0522 04/11/22 1812 04/11/22 0759 04/10/22 1723 04/10/22 1027 04/10/22 0443 04/10/22 0026 04/09/22 1954 04/09/22 1625 04/09/22 1237 CALCIUM 8.5 9.7 9.2 9.5 Not Perf 8.0* 9.2 8.7 8.0* 8.6 8.5 8.3* 8.4* Recent Labs 04/13/22 0522 04/12/22 0522 04/11/22 0759 04/09/22 0100 04/08/22 1547 04/08/22 0453 04/07/22 0515 04/06/22 1920 MAGNESIUM 0.75 0.71 0.72 0.78 0.76 0.67* 0.76 0.63* Recent Labs 04/13/22 0522 04/12/22 1631 04/12/22 0522 04/11/22 0759 04/09/22 0100 04/08/22 0453 04/07/22 0515 04/06/22 1920 PHOS 5.6* 4.1 5.7* 5.4* 6.9* 6.8* 7.0* 5.9* ?? Latest Reference Range & Units 04/06/22 19:20 04/07/22 05:15 Creatinine 0.80 - 1.50 mg/dL 0.84 0.77 (L) Albumin 3.2 - 5.2 g/dL ?? 3.5 PTH 15 - 65 pg/mL 6 (L) ?? Latest Reference Range & Units 04/06/22 19:20 04/12/22 05:22 25-OH Vit D Total 21 - 100 ng/mL 11 (L) 16 (L) Latest Reference Range & Units 04/08/22 12:40 Ca/Cre Ratio ratio 0.11 U Calcium mg/dL 3.8 U Creatinine mg/dL 36 ? Latest Reference Range & Units 02/21/22 15:36 Chromogranin A <93 ng/mL 81 Prolactin 4.0 - 15.2 ng/mL 17.8 (H) Gastrin pg/mL 146 (H) Assessment and plan: Pedro Pablo Cortes is a 26 y.o.male with PMH significant for MEN 1 diagnosed at age 18 with primary hyperparathyroidism s/p subtotal parathyroidectomy (3.5 glands removed) on 03/26, who was admitted 04/06/2022 after presenting with tingling in his face, hands and feet and now treated for symptomatic hypocalcemia. We were consulted for refractory hypocalcemia. Hypocalcemia 2/2 hypoparathyroidism after post-op parathyroidectomy on 04/06/22 His calcium is now stable and on higher normal side. Patient stated he cannot tolerate injection. Will forego the injection and continue the current oral regimen. Does not need phosphate binder due to Phos<6.5. Patient can be discharged from our stand point. He is scheduled for clinic f/u in in 4 weeks. Recommend f/u labs in 3-4 days. MEN1 ?? Will plan for further work up as OP. Plan - stop teriparatide - continue calcitriol to 0.5 mcg twice daily - decrease calcium carbonate to 2000 mg 4 times daily (recommend TUMS extra strength (1000 mg) tab 2000 mg 4 times daily if possible) - continue magnesium oxide to 400 mg three times daily - continue vitamin D2 50,000 units to weekly dosing then recheck vit D level in 8 weeks -He will need surveillance in outpatient endocrine clinic for MEN1-related tumors, scheduled in 4 weeks - If he were to be discharged, will need repeat calcium, albumin, phos, mag in 3-4 days. - Endo clinic number is provided in AVS for concerns of worsening symptoms. Thank you for allowing us to participate in the care of this patient. D/W Dr. Dinero. Karina Montalvo MD [facility] PGY-4, Fellow Pager #[phone] I have seen the patient and reviewed Dr Marc's history and I agree with the details as written. The assessment and plan were formulated in discussion with me and I agree with them as documented. Alan Dinero MD Plant Physiology Teachersubstance abuse prevention coordinator Endocrinology Section [facility] Alan Dinero MD - 04/12/2022 5:28 PM EDT Images from the original note were not included. Endocrinology Follow up Note Name: Pedro Pablo Cortes Date: 04/12/22 Room: 149/149-B Reason for Consult: hypocalcemia ID: Pedro Pablo Cortes is a 26 y.o.male with PMH significant for MEN 1 diagnosed at age 18 with primary hyperparathyroidism s/p subtotal parathyroidectomy (3.5 glands removed) on 03/26, who was admitted 04/06/2022 after presenting with tingling in his face, hands and feet and now treated for symptomatic hypocalcemia. We were consulted for refractory hypocalcemia. Interim Events: Patient had tiny rash after receiving the second dose of teriparatide. The rash is about dime-size and not expanding. He still has some neck pain in the back of his neck and pain at the incision site which surgery already examined. No concern for post-op complication. He denied further tingling of hishands and feet. Noted before surgery patient had multiple episodes of kidney stones that he passed spontaneously and he also had 3 fractures of his wrists/forearm. Also endorsed some fatigue, brain fog, polyuria, and bony ache before surgery. Review of Systems HEENT: tenderness at the incision site MSK: neck pain Vitals BP 113/82 (BP Location (NBP): Left arm, Patient Position: Lying) Pulse 98 Temp 36.7 ??C (98 ??F)(Oral) Resp 20 Ht 177.8 cm (5' 10) Wt 93 kg (205 lb) SpO2 98% BMI 29.41 kg/m?? Physical Exam: HEENT: tenderness at the incision area Chest wall: tenderness around nipple area bilaterally without palpable of breast tissue Skin: tiny erythematous rash at the injection site Current Medications: Scheduled Meds: ??? amoxicillin-clavulanate 1 tablet Oral BID ??? acetaminophen 975 mg Oral Q6H LUIS ENRIQUE ??? diclofenac Topical (Top) 4 Times Daily ??? calciTRIoL 0.5 mcg Oral BID ??? teriparatide 20 mcg Subcutaneous BID ??? calcium carbonate 2,000 mg Oral 5 Times Daily ??? ergocalciferoL (vitamin D2) 50,000 Units Oral Daily ??? magnesium oxide 400 mg Oral TID ??? sodium chloride 0.9 % (flush) 5 mL Intravenous BID ??? enoxaparin 40 mg Subcutaneous Nightly ??? busPIRone 20 mg Oral TID ??? cloNIDine 0.1 mg Oral Daily ??? docusate sodium 100 mg Oral Daily ??? famotidine 20 mg Oral BID ??? FLUoxetine 60 mg Oral Daily ??? methadone (Methadose) oral liquid 110 mg Oral Daily ??? gabapentin 600 mg Oral TID ??? senna-docusate 2 tablet Oral BID ??? traZODone 100 mg Oral Nightly Continuous Infusions: PRN Meds:.cyclobenzaprine, ketorolac, hydrocortisone, diphenhydrAMINE, phenoL 1.4%, sodium chloride 0.9 % (flush), lidocaine, LORazepam Imagin03/13/2022 Narrative & Impression EXAMINATION: MRI PITUITARY WWO CONTRAST ?? CLINICAL HISTORY: Patient with MEN-1 (not followed); reports headaches, vision changes, has elevated prolactin Patient with MEN-1 (not followed); reports headaches, vision changes, has elevated prolactin ? TECHNIQUE: MRI of the brain was performed before and following the intravenous administration of 19 cc Dotarem. ?? COMPARISON: None ?? FINDINGS: The pituitary gland is normal in appearance with normal posterior pituitary T1 hyperintensity. There is normal uniform enhancement of the pituitary gland. The cavernous sinuses are normal. The optic chiasm, prechiasmatic optic nerves and visualized post chiasmatic optic pathways are normal. Unremarkable appearance of the infundibulum in the hypothalamus. The visualized cerebral parenchyma is unremarkable. The ventricles are normal in size and configuration. Major intracranial flow voids are patent. The visualized paranasal sinuses are clear. ?? IMPRESSION Normal MRI of the pituitary gland. ?? 03/15/2022 ?? Narrative & Impression EXAMINATION: CT ABDOMEN AND PELVIS W CONTRAST ?? 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 TECHNIQUE: Helical CT of the abdomen ??was performed following the intravenous administration of contrast. Administered 115.0 ml of OMNIPAQUE 350.00 mg/ml. Oral contrast was administered. Arterial and portal venous phase images were obtained. Although an abdomen and pelvis exam was ordered and protocol for, only images of the abdomen were obtained. The patient will return for additional images of the pelvis. ?? COMPARISON: None ?? FINDINGS: ?? Lower chest: Normal. ?? Liver: Normal size. No enhancing lesions. A 1.7 cm region of low attenuation is seen adjacent to the falciform ligament, felt to be focal fatty change or focal hypoperfusion. It is not a suspicious lesion. Bile ducts: Nondilated. Gallbladder: No calcified gallstones. Normal caliber wall. Pancreas: Normal attenuation without ductal dilatation. Spleen: Normal. Adrenals: Normal. Kidneys: 11 mm cyst upper pole LEFT kidney. No renal masses. No collecting system obstruction bilaterally. Vasculature: No aneurysm. Lymph Nodes: No enlarged lymph nodes. Bowel: Nondilated, no wall thickening. ?? Peritoneum and mesentery: No ascites, free air, or loculated fluid collection. No mesenteric inflammation. Abdominal wall: Normal. ? Osseous structures: No suspicious lesions. ?? IMPRESSION ?? Normal abdominal exam. As described above, due to technical error, the pelvis was not imaged. The patient will return for additional images of the pelvis. ?? Pathology: 03/26/22 DIAGNOSIS A - Right lower parathyroid, excision: Parathyroid gland and adipose tissue B - Right upper parathyroid, excision: Parathyroid ??gland and one benign ??lymph node C - Right central neck content, excision: One benign lymph node D - Left upper parathyroid, excision: Enlarged, hypercellular parathyroid gland E - Left cervical thymus, excision: Benign thymic tissue F - Left lower parathyroid, excision: Parathyroid gland and adipose tissue Labs: Recent Labs 04/12/22 0522 04/11/22 1812 04/11/22 0759 04/10/22 1723 04/10/22 1027 04/10/22 0443 04/10/22 0026 04/09/22 1954 04/09/22 1625 04/09/22 1237 04/09/22 0838 04/09/22 0439 CALCIUM 9.2 9.5 Not Perf 8.0* 9.2 8.7 8.0* 8.6 8.5 8.3* 8.4* 7.7* 8.5 Recent Labs 04/12/22 0522 04/11/22 0759 04/09/22 0100 04/08/22 1547 04/08/22 0453 04/07/22 0515 04/06/22 1920 MAGNESIUM 0.71 0.72 0.78 0.76 0.67* 0.76 0.63* Recent Labs 04/12/22 0522 04/11/22 0759 04/09/22 0100 04/08/22 0453 04/07/22 0515 04/06/22 1920 PHOS 5.7* 5.4* 6.9* 6.8* 7.0* 5.9* ?? Latest Reference Range & Units 04/06/22 19:20 04/07/22 05:15 Creatinine 0.80 - 1.50 mg/dL 0.84 0.77 (L) Albumin 3.2 - 5.2 g/dL ?? 3.5 PTH 15 - 65 pg/mL 6 (L) ?? Latest Reference Range & Units 04/06/22 19:20 25-OH Vit D Total 21 - 100 ng/mL 11 (L) Latest Reference Range & Units 04/08/22 12:40 Ca/Cre Ratio ratio 0.11 U Calcium mg/dL 3.8 U Creatinine mg/dL 36 ? Latest Reference Range & Units 02/21/22 15:36 Chromogranin A <93 ng/mL 81 Prolactin 4.0 - 15.2 ng/mL 17.8 (H) Gastrin pg/mL 146 (H) Assessment and plan: Pedro Pablo Cortes is a 26 y.o.male with PMH significant for MEN 1 diagnosed at age 18 with primary hyperparathyroidism s/p subtotal parathyroidectomy (3.5 glands removed) on 03/26, who was admitted 04/06/2022 after presenting with tingling in his face, hands and feet and now treated for symptomatic hypocalcemia. We were consulted for refractory hypocalcemia. Hypocalcemia 2/2 hypoparathyroidism after post-op parathyroidectomy on 04/06/22 His calcium is now stable and on higher normal side. His reaction to teriparatide is minimal which we think he can safely continue on the medication. His Phos level decreased after the injection, whilemag is still on the low normal. We recommend decreasing calcitriol to 0.5 mcg bid to help decreasingphos level. Will reassess if patient is still willing to take the injection. If patient refuses the medication or developing more side effects, he can continue on this current regimen of high dose calcium and calcitriol. His vitamin D level now improved to 16, so he can continue with vit D 50,000 weekly from now on and reassess vit D level in 8 weeks. MEN1 ?? Work up prior to surgery revealed elevated gastrin level, mildly elevated prolactin and normal chromogranin A. He had an MRI of his pituitary that did not reveal any abnormalities and he had a CT abdomen that also did not show any evidence of neuroendocrine tumors. He has not yet established care with endocrinology but has a visit scheduled with our clinic in the near future (appears to be scheduled on both 04/11/22 and 05/14/22, can keep whichever is first after his discharge). ?? - continue teriparatide 20 mcg bid - decrease calcitriol to 0.5 mcg twice daily - continue calcium carbonate to 2000 mg 5 times daily. This is 4000 mg of elemental calcium. - continue magnesium oxide to 400 mg three times daily -Check calcium bid with goal Ca >8-8.5, check phos and Mg daily - switch vitamin D2 50,000 units to weekly dosing then recheck vit D level in 8 weeks -He will need surveillance in outpatient endocrine clinic for MEN1-related tumors, scheduled in 4 weeks - If he were to discharge, will repeat calcium, albumin, phos, mag in 3-4 days. Thank you for allowing us to participate in the care of this patient. D/W Dr. Dinero. Karina Montalvo MD [facility] [place] PGY-4, Fellow Pager #[phone] Marc's history and I agree with the details as written. The assessment and plan were formulated in discussion with me and I agree with them as documented. Alan Dinero MD Plant Physiology Teachersubstance abuse prevention coordinator Endocrinology Section [facility] Pauline Kincaid MD - 04/12/2022 4:21 PM EDT [facility] Hospital Medicine Attending Daily Progress Note Patient Name: Pedro Pablo Cortes Service: Hospital Medicine Admit Date: 04/06/2022 Hospital Day: 6 Date of Service: 04/12/2022 Patient Description: Pedro Pablo Cortes is a 26 y.o. male with ??anxiety/PTSD,??polysubstance abuse??and??MEN1-associated primary hyperparathyroidism??s/p??parathyroidectomy??03/26/2022 c/b refractory hypoc alcemia, who presents to the ED??reporting muscle stiffness,??twitches??as well as??tingling in hands, feet, face, and around his mouth. ASSESSMENT AND PLAN Active Problems: Active Hospital Problems Diagnosis ??? Hypocalcemia Resolved Hospital Problems No resolved problems to display. 26 y.o.??year old male??with??anxiety/PTSD,?polysubstance abuse and MEN1- associated primary hyperp arathyroidism??s/p??subtotal??parathyroidectomy??03/26/2022 c/b refractory hypocalcemia, who presents to the ED??reporting muscle stiffness,??twitches??as well as??tingling in hands, feet, face, and around his mouth, found to have??hypocalcemia 7.7, hypomagnesemia 0.63, hypophosphatemia 5.9. Patient had multiple recent ER presentations he underwent parathyroidectomy for refractory hypocalcemia. EKG showed normal sinus rhythm??with??normal intervals.. ?? #MEN1-associated primary hyperparathyroidism??s/p??subtotal??parathyroidectomy??c/b refractory hypoca lcemia #Hypomagnesemia #Hyperphosphatemia - Calcium every 12 hours with goal of >8-8.5 - Repletion of Vit D per Endocrine recs - Consults to endocrinology and surgical oncology; appreciate recs . -Continue calcitriol at 0.5 mcg twice daily - Increased calcium carbonate to 2000 mg 5x a day . -Increase magnesium oxide to 400 mg TID -Per endocrine, he will need surveillance in outpatient endocrine clinic for MEN1-related tumors. -patient will need teriparatide 20 mcg BID which will need a prior auth, being administered to see if tolerated. Patient attempting to have consistent dosing for 24 hours prior to discharge ?? #Anxiety #PTSD - Continue??buspirone 20 mg??TID - Continue fluoxetine 60 mg daily - Continue gabapentin 600 mg daily -OK to continue previously started ativan for now due to patient having severe anxiety ?? #Polysubstance abuse - Confirm home methadone dose - Check urine drug screen - Continue methadone 110mg QD ?? #Constipation - Continue home Colace and sennosides/docusate ?? #Chronic Pain -Multifactorial -Adding NSAID - toradol, can be switched to ibuprofen -Tylenol scheduled -Cyclobenzaprine -Consider adding gabapentin #Post Dental Extraction -Augmentin BID (continuation of INFORMATION SUPPORT PROJECT MANAGER medication) # Routine: - Prophylaxis: DVT: Lovenox Glycemic control: As above - Nutrition: Regular diet - Code Status: Attempt Cardiopulmonary Resuscitation - Inpatient - Family Communication- Deferred -Disposition: Home without services SUBJECTIVE -Major 24 Hour Events: - Patient had another dose of the teriparatide and patient had iv infiltrate around the same time. Patient was evaluated and examined at bedside.Still having generalized malaise and total body aches.Overall feeling unwell. OBJECTIVE BP 113/82 (BP Location (NBP): Left arm, Patient Position: Lying) Pulse 98 Temp 36.7 ??C (98 ??F)(Oral) Resp 20 Ht 177.8 cm (5' 10) Wt 93 kg (205 lb) SpO2 98% BMI 29.41 kg/m?? Temp (24hrs), Av.7 ??C (98 ??F), Min:36.2 ??C (97.2 ??F), Max:36.9 ??C (98.4 ??F) Intake/Output Summary (Last 24 hours) at 04/12/2022 1621 Last data filed at 04/12/2022 1541 Gross per 24 hour Intake 1805 ml Output -- Net 1805 ml Vitals: Last Value Range Last 24 hrs Temperature Temp: 36.7 ??C (98 ??F) Temp: [36.2 ??C (97.2 ??F)-36.9 ??C (98.4 ??F)] Heart Rate Heart Rate: 98 Heart Rate: [94-98] Blood Pressure BP: 113/82 BP: (89-127)/(54-82) Respiratory Rate Resp: 20 Resp: [16-22] SpO2 SpO2: 98 % SpO2: [93 %-98 %] Weight: Last: 93 kg (205 lb) I/Os: 04/11 0701 - 04/12 0700 In: 1095 [P.O.:1095] Out: - Admit: 96 kg Physical Exam Constitutional: General: He is not in acute distress. Appearance: He is not ill-appearing or diaphoretic. HENT: Head: Normocephalic and atraumatic. Nose: No congestion. Mouth/Throat: Mouth: Mucous membranes are moist. Pharynx: No oropharyngeal exudate. Eyes: General: No scleral icterus. Extraocular Movements: Extraocular movements intact. Pupils: Pupils are equal, round, and reactive to light. Cardiovascular: Rate and Rhythm: Normal rate and regular rhythm. Heart sounds: No murmur heard. Pulmonary: Effort: Pulmonary effort is normal. No respiratory distress. Breath sounds: Normal breath sounds. No stridor. No wheezing, rhonchi or rales. Abdominal: General: Abdomen is flat. Bowel sounds are normal. There is no distension. Palpations: Abdomen is soft. Tenderness: There is no abdominal tenderness. There is no guarding. Musculoskeletal: General: No swelling or deformity. Normal range of motion. Right lower leg: No edema. Left lower leg: No edema. Skin: General: Skin is warm and dry. Coloration: Skin is not jaundiced or pale. Findings: No bruising, erythema, lesion or rash. Neurological: General: No focal deficit present. Mental Status: He is alert and oriented to person, place, and time. Cranial Nerves: No cranial nerve deficit. Sensory: No sensory deficit. Psychiatric: Mood and Affect: Mood normal. Behavior: Behavior normal. LABS CBC: Recent Labs 04/09/22 0100 04/08/223 04/07/22 0515 WBC 8.5 6.5 8.1 HGB 11.1* 13.6* 11.3* PLATELET 241 226 227 BMP: Recent Labs 04/12/2252104/11/229 04/09/22 0100 NA 137 139 138 K 4.1 4.3 4.2 CL 99 98 101 CO2 30 Not Perf 28 BUN 13 9* 11 CREATININE 0.86 0.77* 0.82 GLUCOSE 94 87 120 Calcium, Magnesium, Phosphate: Recent Labs 04/12/2252104/11/22 1812 04/11/229 04/09/22 0439 04/09/22 0100 CALCIUM 9.2 9.5 Not Perf 8.0* < > 8.6 8.6 MAGNESIUM 0.71 -- 0.72 -- 0.78 PHOS 5.7* -- 5.4* -- 6.9* < > = values in this interval not displayed. LFTs: Recent Labs 04/07/22514 AST 15 ALT 17 ALKPHOS 119 BILITOT 0.3 BILIDIR 0.1 Troponin: No results for input(s): TROPONINT, CK in the last 168 hours. ABG: No results for input(s): PHART, ZHJ5TJN, PO2ART, BAH6KYO in the last 168 hours. Coags: No results for input(s): PT, PTT, INR in the last 7068 hours. MICRO Microbiology Results (Last 30 days) Procedure Component Value Units Date/Time COVID-19 PCR [[id number]] Collected: 04/11/22 1114 Lab Status: Final result Specimen: Nasopharyngeal Swab Updated: 04/11/222054 SARS-CoV-2 RNA PCR Not Detected Comment: This result should be interpreted in combination with the clinical observations, patient history and epidemiological information. For testing of asymptomatic individuals, assay performance characteristics and clinical utility have not been evaluated. Testing for SARS-CoV-2 (Severe acute respiratory syndrome coronavirus 2, formerly known as 2019 novel coronavirus or 2019-nCoV) to aid in the diagnosis of COVID-19 is performed using the Simplexa COVID-19 Direct Assay by [employer] as authorized by the FDA issued Emergency Use Authorization (EUA). This assay is intended for In-vitro Diagnostic (IVD) use with nasopharyngeal swabs collected from individuals meeting the CDC criteria for testing. The assay is performed based on the instructions for use and additional guidance provided by the FDA. Testing is performed in the Microbiology Laboratory within the Department of Pathology and Laboratory Medicine at [facility], certified under the Clinical Laboratory Improvement Amendments of 1988 (CLIA), 42 U.S.C. section 263a, to perform high complexity tests. Assay performance has been verified according to clinical laboratory regulatory requirements. Test results are provided above. A result of Not Detected indicates that the viral RNA target is not present but does not preclude SARS-CoV-2 infection. False negative results may occur if a specimen is improperly collected, transported or handled; if amplification inhibitors are present; or if inadequate numbers of viral particles are present in the specimen. A result of Detected suggests a current or recent infection and the patient is presumed to be infected. Positive and negative predictive values for this test are highly dependent on disease prevalence. A result of Invalid indicates the inability to conclusively determine the presence or absence of SARS-CoV-2 RNA in the sample which can be due to a variety of factors. Recollection is recommended in the case of an invalid result. CDC COVID-19 criteria for testing on human specimens and clinical management guidance information are available at the CDC Coronavirus Disease 2019 (COVID-19) webpage under Information for Healthcare Professionals (https://www.cdc.gov/coronavirus/2019-ncov/hcp/index.html). Additional information about this and other EUA tests can be found in provider and patient fact sheets at the following FDA website: https://www.fda.gov/medical-devices/robsmuhzmhc-xhagqkt-3204-uwkig-10-ecxydwubo- vhq-ljxpdaasphxnbq-hhvytrl-devices/zmdms-mhbvflgrxat-dqpn SARS-CoV-2 Source FORESTR[employer]ACULTY MEMBER Swab RECENT IMAGING No results found for this visit on 04/06/22 (from the past 24 hour(s)). Signed: Pauline Kincaid MD 04/12/2022 4:21 PM Hospital Medicine Team Pager: [phone] IPI Certification I certify that I am a D-H credentialed attending provider with admitting privileges and that the patient meets or has met medical necessity to require an inpatient IPI level of care meeting a minimum of two midnights or is on the [facility] inpatient only procedure list (status C) due to: monitoring of fluidstatus given an inability to regulate fluid balance and the need for administration or restriction of fluids and hypocalcemia requiring IV correction and endocrine consultation Brie Dowling RN - 04/12/2022 2:34 AM EDT OUTCOME EVALUATION NOTE: ?? OUTCOME SUMMARY: ?? Assumed care of patient. AOx4. VSS on RA. On telemetry, no events. Pt denies any pain overnight, including thoat pain and general malaise. Covid PCR resulted negative, removed from airborne/contact precautions. Pt denies any numbness or tingling overnight. Meds given per order. Sleeping comfortably between care. No acute issues. Will notify MD of changes.? PLAN MOVING FORWARD: ?? BID calcium checks. Monitor labs. Monitor VS.? INDIVIDUALIZED FALL PREVENTION INTERVENTIONS: ?? Patient-specific fall risk factors per assessment: [current deficits]:?Medical equipment.? Assistance [level of assistance required for transfers and ambulation]:?IND ?? Supervision [direct monitoring required during toileting and ADLs]:?Ears on ?? Surveillance [continuous indirect monitoring]:?Call ennis within reach. Purposeful rounding. Room near nursing station. ?? Patient-specific fall prevention interventions for sensory deficits provided, if applicable:?[X] No ? CARE PLAN GOAL OUTCOME EVALUATION:? Jordan Marinelli MD - 04/11/2022 7:04 PM EDT Endocrine Surgery Brief Update Pedro Pablo Cortes is a 26 y.o. male s/p parathyroidectomy on 03/26/22. Currently admitted for hypocalcemia, hyperphosphatemia. His primary team reached out regarding new onset difficulty swallowing, and pain with swallowing and head movement. It feels like something is stretching that shouldn't be. He reports hacking something up last evening with some associated coughing, after which he felt hoarse and developed some throat pain and a globus sensation. When he turns his head he feels like its stretching at the edges of his incision and also deeper down, occasionally radiating to his shoulder. The difficulty swallowing in particular is improving, as are the rest of his associated symptoms. Denies sore throat, congestion, runny nose, cough, chest pain, and shortness of breath. Tolerating thin liquids and a regular diet. Voice seems normal to him today. He still has a little tooth pain for which he was on antibiotics prior to admission, but doesn't feel this has changed much or is related to his other complaint. His numbness and tingling has resolved. On exam his neck is supple, with normal range of motion. Incision intact, almost completely healed. Very small ridge of healing at the corners. No erythema or swelling. Some tenderness with axial rotation of his neck, all muscles are somewhat tense. Poor dentition. No pharyngitis appreciated. Otherwise normal exam. Overall, Pedro Pablo continues to heal well from a surgical standpoint. New symptoms of pain/stretching with swallowing seem related to his hacking episode last night. Could be some muscular tightness related to relative immobility since surgery. No evidence of complication or worrisome difficulty swallowing. The symptoms are improving without much intervention. Recommend monitoring for worsening, range ofmotion exercises, scar and muscle massage. Please don't hesitate to call with questions concerns. Jordan Marinelli MD 04/11/2022 Surgical Oncology [id number] Pauline Kincaid MD - 04/11/2022 6:05 PM EDT [facility] Medicine Attending Daily Progress Note Patient Name: Pedro Pablo Cortes Service: Hospital Medicine Admit Date: 04/06/2022 Hospital Day: 5 Date of Service: 04/11/2022 Patient Description: Pedro Pablo Cortes is a 26 y.o. male with ??anxiety/PTSD,??polysubstance abuse??and??MEN1-associated primary hyperparathyroidism??s/p??parathyroidectomy??03/26/2022 c/b refractory hypoc alcemia, who presents to the ED??reporting muscle stiffness,??twitches??as well as??tingling in hands, feet, face, and around his mouth. ASSESSMENT AND PLAN Active Problems: Active Hospital Problems Diagnosis ??? Hypocalcemia Resolved Hospital Problems No resolved problems to display. 26 y.o.??year old male??with??anxiety/PTSD,?polysubstance abuse and MEN1- associated primary hyperp arathyroidism??s/p??subtotal??parathyroidectomy??03/26/2022 c/b refractory hypocalcemia, who presents to the ED??reporting muscle stiffness,??twitches??as well as??tingling in hands, feet, face, and around his mouth, found to have??hypocalcemia 7.7, hypomagnesemia 0.63, hypophosphatemia 5.9. Patient had multiple recent ER presentations he underwent parathyroidectomy for refractory hypocalcemia. EKG showed normal sinus rhythm??with??normal intervals.. ?? #MEN1-associated primary hyperparathyroidism??s/p??subtotal??parathyroidectomy??c/b refractory hypoca lcemia #Hypomagnesemia #Hyperphosphatemia - Calcium every 12 hours >8-8.5 - Check vitD and urine spot calcium creatinine ratio - Consults to endocrinology and surgical oncology; appreciate recs -Stop calcium gluconate drip for now due to calcium levels. -Continue calcitriol 1 mcg twice daily - Increase calcium carbonate to 2000 mg 5x a day . -Increase magnesium oxide to 400 mg TID -Per endocrine, he will need surveillance in outpatient endocrine clinic for MEN1-related tumors. -patient will need teriparatide 20 mcg BID which will need a prior auth, contacting med admit to getit approved for inpatient use for now ?? #Anxiety #PTSD - Continue??buspirone 20 mg??TID - Continue fluoxetine 60 mg daily - Continue gabapentin 600 mg daily ?? #Polysubstance abuse - Confirm home methadone dose - Check urine drug screen - Continue methadone 110mg QD ?? #Constipation - Continue home Colace and sennosides/docusate ?? # Routine: - Prophylaxis: DVT: Lovenox Glycemic control: As above - Nutrition: Regular diet - Code Status: Attempt Cardiopulmonary Resuscitation - Inpatient - Family Communication- Deferred -Disposition: Home without services SUBJECTIVE -Major 24 Hour Events: - Calcium improved. Administration approval for teriparatide 20 mcg BID, but patient had a small rash shortly after first injection. Will reevaluate tomorrow and try another dose if possible Patient was evaluated and examined at bedside. Having cough and total body aches. Overall feeling generalized malaise. OBJECTIVE BP 109/70 (BP Location (NBP): Right arm, Patient Position: Lying) Pulse 67 Temp 36.5 ??C (97.7 ??F) (Oral) Resp 18 Ht 177.8 cm (5' 10) Wt 93 kg (205 lb) SpO2 98% BMI 29.41 kg/m?? Temp (24hrs), Av.7 ??C (98.1 ??F), Min:36.5 ??C (97.7 ??F), Max:37 ??C (98.6 ??F) Intake/Output Summary (Last 24 hours) at 04/11/2022 1805 Last data filed at 04/11/2022 1600 Gross per 24 hour Intake 980 ml Output -- Net 980 ml Vitals: Last Value Range Last 24 hrs Temperature Temp: 36.5 ??C (97.7 ??F) Temp: [36.5 ??C (97.7 ??F)-37 ??C (98.6 ??F)] Heart Rate Heart Rate: 67 Heart Rate: [67] Blood Pressure BP: 109/70 BP: (106-115)/(57-70) Respiratory Rate Resp: 18 Resp: [12-18] SpO2 SpO2: 98 % SpO2: [93 %-98 %] Weight: Last: 93 kg (205 lb) I/Os: 04/10 0701 - 04/11 0700 In: 1908 [P.O.:1908] Out: - Admit: 96 kg Physical Exam Constitutional: General: He is not in acute distress. Appearance: He is not ill-appearing or diaphoretic. HENT: Head: Normocephalic and atraumatic. Nose: No congestion. Mouth/Throat: Mouth: Mucous membranes are moist. Pharynx: No oropharyngeal exudate. Eyes: General: No scleral icterus. Extraocular Movements: Extraocular movements intact. Pupils: Pupils are equal, round, and reactive to light. Cardiovascular: Rate and Rhythm: Normal rate and regular rhythm. Heart sounds: No murmur heard. Pulmonary: Effort: Pulmonary effort is normal. No respiratory distress. Breath sounds: Normal breath sounds. No stridor. No wheezing, rhonchi or rales. Abdominal: General: Abdomen is flat. Bowel sounds are normal. There is no distension. Palpations: Abdomen is soft. Tenderness: There is no abdominal tenderness. There is no guarding. Musculoskeletal: General: No swelling or deformity. Normal range of motion. Right lower leg: No edema. Left lower leg: No edema. Skin: General: Skin is warm and dry. Coloration: Skin is not jaundiced or pale. Findings: No bruising, erythema, lesion or rash. Neurological: General: No focal deficit present. Mental Status: He is alert and oriented to person, place, and time. Cranial Nerves: No cranial nerve deficit. Sensory: No sensory deficit. Psychiatric: Mood and Affect: Mood normal. Behavior: Behavior normal. LABS CBC: Recent Labs 04/09/22 0100 04/08/22 0453 04/07/22 0515 WBC 8.5 6.5 8.1 HGB 11.1* 13.6* 11.3* PLATELET 241 226 227 BMP: Recent Labs 04/11/22 0759 04/09/22 0100 04/08/22 0453 NA 139 138 136 K 4.3 4.2 4.1 CL 98 101 97* CO2 Not Perf 28 22 BUN 9* 11 9* CREATININE 0.77* 0.82 0.76* GLUCOSE 87 120 78 Calcium, Magnesium, Phosphate: Recent Labs 04/11/22 0759 04/10/22 1723 04/10/22 1027 04/09/22 0439 04/09/22 0100 04/08/22 1955 04/08/22 1547 04/08/22 0453 CALCIUM Not Perf 8.0* 9.2 8.7 < > 8.6 8.6 < > 7.3* 7.0* MAGNESIUM 0.72 -- -- -- 0.78 -- 0.76 0.67* PHOS 5.4* -- -- -- 6.9* -- -- 6.8* < > = values in this interval not displayed. LFTs: Recent Labs 04/07/22 0515 AST 15 ALT 17 ALKPHOS 119 BILITOT 0.3 BILIDIR 0.1 Troponin: No results for input(s): TROPONINT, CK in the last 168 hours. ABG: No results for input(s): PHART, UOY9UAL, PO2ART, HOL6PPL in the last 168 hours. Coags: No results for input(s): PT, PTT, INR in the last 7068 hours. MICRO Microbiology Results (Last 30 days) No results found for the last 720 hours. RECENT IMAGING No results found for this visit on 04/06/22 (from the past 24 hour(s)). Signed: Pauline Kincaid MD 04/11/2022 6:05 PM Hospital Medicine Team Pager: [phone] IPI Certification I certify that I am a D-H credentialed attending provider with admitting privileges and that the patient meets or has met medical necessity to require an inpatient IPI level of care meeting a minimum of two midnights or is on the [facility] inpatient only procedure list (status C) due to: monitoring of fluidstatus given an inability to regulate fluid balance and the need for administration or restriction of fluids and hypocalcemia requiring IV correction and endocrine consultation Alan Dinero MD - 04/11/2022 5:31 PM EDT Images from the original note were not included. Endocrinology Follow up Note Name: Pedro Pablo Cortes Date: 04/11/22 Room: [address] [place] [address] Reason for Consult: hypocalcemia ID: Pedro Pablo Cortes is a 26 y.o.male with PMH significant for MEN 1 diagnosed at age 18 with primary hyperparathyroidism s/p subtotal parathyroidectomy (3.5 glands removed) on 03/26, who was admitted 04/06/2022 after presenting with tingling in his face, hands and feet and now treated for symptomatic hypocalcemia. We were consulted for refractory hypocalcemia. Interim Events: Patient's calcium has been stable on current regimen. Lowest calcium was 8.0 in the morning. He did not have any tingling of the extremities any more. Today he endorses some chest pressure, blurry vision, headache and ear pain, difficulty swallowing feeling like throat is closing up. Stated he was on Abx before hospitalization due to tooth infection but the course got interrupted. Patient also has some cough which is currently ruling out for COVID. Patient received teriparatide this morning and developed 2 small dime-size rash. Review of Systems HEENT: headache, ear pain GI: difficulty swallowing Resp: cough Musculoskeletal: Chest discomfort Vitals BP 109/70 (BP Location (NBP): Right arm, Patient Position: Lying) Pulse 67 Temp 36.5 ??C (97.7 ??F) (Oral) Resp 18 Ht 177.8 cm (5' 10) Wt 93 kg (205 lb) SpO2 98% BMI 29.41 kg/m?? Physical Exam: Defer Current Medications: Scheduled Meds: ??? [START ON 04/12/2022] teriparatide 20 mcg Subcutaneous BID ??? calcium carbonate 2,000 mg Oral 5 Times Daily ??? ergocalciferoL (vitamin D2) 50,000 Units Oral Daily ??? magnesium oxide 400 mg Oral TID ??? sodium chloride 0.9 % (flush) 5 mL Intravenous BID ??? enoxaparin 40 mg Subcutaneous Nightly ??? busPIRone 20 mg Oral TID ??? cloNIDine 0.1 mg Oral Daily ??? docusate sodium 100 mg Oral Daily ??? famotidine 20 mg Oral BID ??? FLUoxetine 60 mg Oral Daily ??? methadone (Methadose) oral liquid 110 mg Oral Daily ??? gabapentin 600 mg Oral TID ??? senna-docusate 2 tablet Oral BID ??? traZODone 100 mg Oral Nightly ??? calciTRIoL 1 mcg Oral BID Continuous Infusions: PRN Meds:.diphenhydrAMINE, phenoL 1.4%, acetaminophen, sodium chloride 0.9 % (flush), lidocaine, LORazepam Imagin03/13/2022 Narrative & Impression EXAMINATION: MRI PITUITARY WWO CONTRAST ?? CLINICAL HISTORY: Patient with MEN-1 (not followed); reports headaches, vision changes, has elevated prolactin Patient with MEN-1 (not followed); reports headaches, vision changes, has elevated prolactin ? TECHNIQUE: MRI of the brain was performed before and following the intravenous administration of 19 cc Dotarem. ?? COMPARISON: None ?? FINDINGS: The pituitary gland is normal in appearance with normal posterior pituitary T1 hyperintensity. There is normal uniform enhancement of the pituitary gland. The cavernous sinuses are normal. The optic chiasm, prechiasmatic optic nerves and visualized post chiasmatic optic pathways are normal. Unremarkable appearance of the infundibulum in the hypothalamus. The visualized cerebral parenchyma is unremarkable. The ventricles are normal in size and configuration. Major intracranial flow voids are patent. The visualized paranasal sinuses are clear. ?? IMPRESSION Normal MRI of the pituitary gland. ?? 03/15/2022 ?? Narrative & Impression EXAMINATION: CT ABDOMEN AND PELVIS W CONTRAST ?? 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 TECHNIQUE: Helical CT of the abdomen ??was performed following the intravenous administration of contrast. Administered 115.0 ml of OMNIPAQUE 350.00 mg/ml. Oral contrast was administered. Arterial and portal venous phase images were obtained. Although an abdomen and pelvis exam was ordered and protocol for, only images of the abdomen were obtained. The patient will return for additional images of the pelvis. ?? COMPARISON: None ?? FINDINGS: ?? Lower chest: Normal. ?? Liver: Normal size. No enhancing lesions. A 1.7 cm region of low attenuation is seen adjacent to the falciform ligament, felt to be focal fatty change or focal hypoperfusion. It is not a suspicious lesion. Bile ducts: Nondilated. Gallbladder: No calcified gallstones. Normal caliber wall. Pancreas: Normal attenuation without ductal dilatation. Spleen: Normal. Adrenals: Normal. Kidneys: 11 mm cyst upper pole LEFT kidney. No renal masses. No collecting system obstruction bilaterally. Vasculature: No aneurysm. Lymph Nodes: No enlarged lymph nodes. Bowel: Nondilated, no wall thickening. ?? Peritoneum and mesentery: No ascites, free air, or loculated fluid collection. No mesenteric inflammation. Abdominal wall: Normal. ? Osseous structures: No suspicious lesions. ?? IMPRESSION ?? Normal abdominal exam. As described above, due to technical error, the pelvis was not imaged. The patient will return for additional images of the pelvis. ?? Pathology: 03/26/22 DIAGNOSIS A - Right lower parathyroid, excision: Parathyroid gland and adipose tissue B - Right upper parathyroid, excision: Parathyroid ??gland and one benign ??lymph node C - Right central neck content, excision: One benign lymph node D - Left upper parathyroid, excision: Enlarged, hypercellular parathyroid gland E - Left cervical thymus, excision: Benign thymic tissue F - Left lower parathyroid, excision: Parathyroid gland and adipose tissue Labs: Recent Labs 04/11/22 0759 04/10/22 1723 04/10/22 1027 04/10/22 0443 04/10/22 0026 04/09/22 1954 04/09/22 1625 04/09/22 1237 04/09/22 0838 04/09/22 0439 04/09/22 0100 04/08/22 195 CALCIUM Not Perf 8.0* 9.2 8.7 8.0* 8.6 8.5 8.3* 8.4* 7.7* 8.5 8.6 8.6 8.3* Recent Labs 04/11/22 0759 04/09/22 0100 04/08/22 1547 04/08/22 0453 04/07/22 0515 10/22/22 1920 MAGNESIUM 0.72 0.78 0.76 0.67* 0.76 0.63* Recent Labs 04/11/22 0759 04/09/22 0100 04/08/22 0453 04/07/22 0515 04/06/220 PHOS 5.4* 6.9* 6.8* 7.0* 5.9* ?? Latest Reference Range & Units 04/06/22 19:20 04/07/22 05:15 Creatinine 0.80 - 1.50 mg/dL 0.84 0.77 (L) Albumin 3.2 - 5.2 g/dL ?? 3.5 PTH 15 - 65 pg/mL 6 (L) ?? Latest Reference Range & Units 04/06/22 19:20 25-OH Vit D Total 21 - 100 ng/mL 11 (L) Latest Reference Range & Units 04/08/22 12:40 Ca/Cre Ratio ratio 0.11 U Calcium mg/dL 3.8 U Creatinine mg/dL 36 ? Latest Reference Range & Units 02/21/22 15:36 Chromogranin A <93 ng/mL 81 Prolactin 4.0 - 15.2 ng/mL 17.8 (H) Gastrin pg/mL 146 (H) Assessment and plan: Pedro Pablo Cortes is a 26 y.o.male with PMH significant for MEN 1 diagnosed at age 18 with primary hyperparathyroidism s/p subtotal parathyroidectomy (3.5 glands removed) on 03/26, who was admitted 04/06/2022 after presenting with tingling in his face, hands and feet and now treated for symptomatic hypocalcemia. We were consulted for refractory hypocalcemia. Hypocalcemia 2/2 hypoparathyroidism after post-op parathyroidectomy on 04/06/22 Patient was symptomatic with tingling in his face, hands, feet and back when his calcium is in 7's range. His calcium is still low despite high dose of calcium and active vitamin D. His vit D was very low at 11. Urine calcium excretion was also low, which is correlating with hypocalcemia. Hypocalcemiais likely due to hypoparathyroidism (PTH 6) from surgery and concomitant hungry bone syndrome. Currently patient is on 4 g elemental calcium per day, calcitriol 1 mcg bid, mag supplement and ergocalciferol 50,000 u daily. His calcium is still fluctuated throughout the day but are above 8 with normal magnesium. He received his first teriparatide injection today but developed small rash. Unsure if thisrash is the allergic reaction to the medication. We will observe for now and maybe repeat the injection tmr if the rash improves. If he truly has allergic reaction to the medication, we can continue this current regimen and discharge the patient if he is stable. Will need repeat blood work frequently as outpatient. The goal calcium level is 8-8.5. We don't think that chest pain and difficulty swallowing is related to low calcium. If there's concern for post-op complication, team should contact general surgery. MEN1 ?? Work up prior to surgery revealed elevated gastrin level, mildly elevated prolactin and normal chromogranin A. He had an MRI of his pituitary that did not reveal any abnormalities and he had a CT abdomen that also did not show any evidence of neuroendocrine tumors. He has not yet established care with endocrinology but has a visit scheduled with our clinic in the near future (appears to be scheduled on both 04/11/22 and 05/14/22, can keep whichever is first after his discharge). ?? - hold teriparatide for now and reassess allergic reaction again tmr -Continue calcitriol 1 mcg twice daily - continue calcium carbonate to 2000 mg 5 times daily. This is 4000 mg of elemental calcium. - continue magnesium oxide to 400 mg three times daily -Check calcium bid with goal Ca >8-8.5, check phos and Mg daily - continue vitamin D2 50,000 units daily then recheck vit D level tmr - consider reaching out to general surgery team if concerns for post-op complication -He will need surveillance in outpatient endocrine clinic for MEN1-related tumors. Thank you for allowing us to participate in the care of this patient. D/W Dr. Dinero. Karina Montalvo MD [facility] [place]Y-4, Fellow Pager #[phone] Jeovany Zambrano RN - 04/11/2022 1:18 PM EDT Patient has 2 Nickel to quarter-sized red, circular plaques that developed at the injection site ofthe Forteo (generic brand administered) about 30 minutes after administration. MD notified via page.No difficulty breathing nor swallowing. Jeovany Zambrano RN - 04/11/2022 11:08 AM EDT Patient was having chest pain about about 1025. MD was notified and EKG performed that showed NSR with arrhythmia (QTC 470ms). MD evaluated patient. VSS. No further work-up at this time. Brie Dowling RN - 04/11/2022 3:55 AM EDT OUTCOME EVALUATION NOTE: ?? OUTCOME SUMMARY: ?? Assumed care of patient. AOx4. VSS on RA. On telemetry, no events. Pt c/o sore throat overnight, stating that it is difficult for him to swallow. Pt states he has not felt anything getting stuck in histhroat while swallowing. Throat did not appear erythematic. Not tender to palpation. Symmetrical. MDnotified. PRN chloraseptic spray ordered. Pt instructed to notify RN if he identifies difficulty swallowing food or drink, or if pain worsens. No further issues. Pt also c/o baseline back pain, heatingpad at bedside. Pt denies any numbness or tingling overnight. Meds given per order. No acute issues.Will notify MD of changes. ?? PLAN MOVING FORWARD: ?? BID calcium checks. Monitor labs. Monitor VS. ?? INDIVIDUALIZED FALL PREVENTION INTERVENTIONS: ?? Patient-specific fall risk factors per assessment: [current deficits]: Medical equipment. ?? Assistance [level of assistance required for transfers and ambulation]: IND ?? Supervision [direct monitoring required during toileting and ADLs]: Ears on ?? Surveillance [continuous indirect monitoring]: Call ennis within reach. Purposeful rounding. Room near nursing station. ?? Patient-specific fall prevention interventions for sensory deficits provided, if applicable: [X] No ? CARE PLAN GOAL OUTCOME EVALUATION: Vicenta Joel RN - 04/10/2022 6:35 PM EDT Patient Name:Pedro Pablo Cortes [facility] Telemetry Note Diagnosis r/t telemetry:Electrolyte abnomalities Subjective:I just feel so tired Objective: No chest pain, no dizziness. Last value Range last 24 hrs Temperature Temp: 37 ??C (98.6 ??F) Temp: [36.4 ??C (97.6 ??F)-37 ??C (98.6 ??F)] Heart Rate Heart Rate: 60 Heart Rate: -- Blood Pressure BP: 117/77 BP: (93-117)/(54-77) Respiratory Rate Resp: 16 Resp: [-] SpO2 SpO2: 93 % SpO2: [91 %-95 %] See MAR. Assessment:Sinus rhythm, sinus bradycardia, sinus tachycardia. HR 55-120. Plan: Monitor labs and replace as necessary, continue tele monitoring, assess hemodynamic tolerance of dysrythmia, see tele strip (attached) Pauline Kincaid MD - 04/10/2022 5:26 PM EDT [facility] Hospital Medicine Attending Daily Progress Note Patient Name: Pedro Pablo Cortes Service: Hospital Medicine Admit Date: 04/06/2022 Hospital Day: 4 Date of Service: 04/10/2022 Patient Description: Pedro Pablo Cortes is a 26 y.o. male with ??anxiety/PTSD,??polysubstance abuse??and??MEN1-associated primary hyperparathyroidism??s/p??parathyroidectomy??03/26/2022 c/b refractory hypoc alcemia, who presents to the ED??reporting muscle stiffness,??twitches??as well as??tingling in hands, feet, face, and around his mouth. ASSESSMENT AND PLAN Active Problems: Active Hospital Problems Diagnosis ??? Hypocalcemia Resolved Hospital Problems No resolved problems to display. 26 y.o.??year old male??with??anxiety/PTSD,?polysubstance abuse and MEN1- associated primary hyperp arathyroidism??s/p??subtotal??parathyroidectomy??03/26/2022 c/b refractory hypocalcemia, who presents to the ED??reporting muscle stiffness,??twitches??as well as??tingling in hands, feet, face, and around his mouth, found to have??hypocalcemia 7.7, hypomagnesemia 0.63, hypophosphatemia 5.9. Patient had multiple recent ER presentations he underwent parathyroidectomy for refractory hypocalcemia. EKG showed normal sinus rhythm??with??normal intervals.. ?? #MEN1-associated primary hyperparathyroidism??s/p??subtotal??parathyroidectomy??c/b refractory hypoca lcemia #Hypomagnesemia #Hyperphosphatemia - Calcium every 4 hours with goal Ca >8-8.5 - Check vitD and urine spot calcium creatinine ratio - Consults to endocrinology and surgical oncology; appreciate recs -Stop calcium gluconate drip for now due to calcium levels. -Continue calcitriol 1 mcg twice daily - Increase calcium carbonate to 2000 mg 5x a day . -Increase magnesium oxide to 400 mg TID -Per endocrine, he will need surveillance in outpatient endocrine clinic for MEN1-related tumors. -patient will need teriparatide 20 mcg BID which will need a prior auth[facility] for now ?? #Anxiety #PTSD - Continue??buspirone 20 mg??TID - Continue fluoxetine 60 mg daily - Continue gabapentin 600 mg daily ?? #Polysubstance abuse - Confirm home methadone dose - Check urine drug screen - Continue methadone 110mg QD ?? #Constipation - Continue home Colace and sennosides/docusate ?? # Routine: - Prophylaxis: DVT: Lovenox Glycemic control: As above - Nutrition: Regular diet - Code Status: Attempt Cardiopulmonary Resuscitation - Inpatient - Family Communication- Deferred -Disposition: Home without services SUBJECTIVE -Major 24 Hour Events: - Calcium improved. Administration approval for teriparatide 20 mcg BID, but it will not be able to be here until tomorrow. Patient was evaluated and examined at bedside. Tingling somewhat worse again. Feeling fatigued and tired, but overall doing well. OBJECTIVE BP 117/77 (BP Location (NBP): Right arm, Patient Position: Lying) Pulse 60 Temp 37 ??C (98.6 ??F) (Oral) Resp 16 Ht 177.8 cm (5' 10) Wt 93 kg (205 lb) SpO2 93% BMI 29.41 kg/m?? Temp (24hrs), Av.7 ??C (98.1 ??F), Min:36.4 ??C (97.6 ??F), Max:37 ??C (98.6 ??F) Intake/Output Summary (Last 24 hours) at 04/10/2022 1726 Last data filed at 04/10/2022 1328 Gross per 24 hour Intake 2022 ml Output -- Net 2022 ml Vitals: Last Value Range Last 24 hrs Temperature Temp: 37 ??C (98.6 ??F) Temp: [36.4 ??C (97.6 ??F)-37 ??C (98.6 ??F)] Heart Rate Heart Rate: 60 Heart Rate: -- Blood Pressure BP: 117/77 BP: (93-117)/(54-77) Respiratory Rate Resp: 16 Resp: [10-16] SpO2 SpO2: 93 % SpO2: [91 %-95 %] Weight: Last: 93 kg (205 lb) I/Os: 04/09 0701 - 04/10 0700 In: 835 [P.O.:835] Out: - Admit: 96 kg Physical Exam Constitutional: General: He is not in acute distress. Appearance: He is not ill-appearing or diaphoretic. HENT: Head: Normocephalic and atraumatic. Nose: No congestion. Mouth/Throat: Mouth: Mucous membranes are moist. Pharynx: No oropharyngeal exudate. Eyes: General: No scleral icterus. Extraocular Movements: Extraocular movements intact. Pupils: Pupils are equal, round, and reactive to light. Cardiovascular: Rate and Rhythm: Normal rate and regular rhythm. Heart sounds: No murmur heard. Pulmonary: Effort: Pulmonary effort is normal. No respiratory distress. Breath sounds: Normal breath sounds. No stridor. No wheezing, rhonchi or rales. Abdominal: General: Abdomen is flat. Bowel sounds are normal. There is no distension. Palpations: Abdomen is soft. Tenderness: There is no abdominal tenderness. There is no guarding. Musculoskeletal: General: No swelling or deformity. Normal range of motion. Right lower leg: No edema. Left lower leg: No edema. Skin: General: Skin is warm and dry. Coloration: Skin is not jaundiced or pale. Findings: No bruising, erythema, lesion or rash. Neurological: General: No focal deficit present. Mental Status: He is alert and oriented to person, place, and time. Cranial Nerves: No cranial nerve deficit. Sensory: No sensory deficit. Psychiatric: Mood and Affect: Mood normal. Behavior: Behavior normal. LABS CBC: Recent Labs 04/09/22 0100 04/08/22 0453 04/07/22 0515 WBC 8.5 6.5 8.1 HGB 11.1* 13.6* 11.3* PLATELET 241 226 227 BMP: Recent Labs 04/09/22 0100 04/08/22 0453 04/07/22 1203 NA 138 136 141 K 4.2 4.1 4.1 CL 101 97* 100 CO2 28 22 30 BUN 11 9* 7* CREATININE 0.82 0.76* 0.74* GLUCOSE 120 78 97 Calcium, Magnesium, Phosphate: Recent Labs 04/10/22 1027 04/10/22 0443 04/10/22 0026 04/09/22 0439 04/09/22 0100 04/08/22 1955 04/08/22 1547 04/08/22 0453 04/07/22 1203 04/07/22 0515 CALCIUM 8.7 8.0* 8.6 < > 8.6 8.6 < > 7.3* 7.0* < > 7.2* MAGNESIUM -- -- -- -- 0.78 -- 0.76 0.67* -- 0.76 PHOS -- -- -- -- 6.9* -- -- 6.8* -- 7.0* < > = values in this interval not displayed. LFTs: Recent Labs 04/07/22 0515 AST 15 ALT 17 ALKPHOS 119 BILITOT 0.3 BILIDIR 0.1 Troponin: No results for input(s): TROPONINT, CK in the last 168 hours. ABG: No results for input(s): PHART, XTG5BFA, PO2ART, GKV4MHV in the last 168 hours. Coags: No results for input(s): PT, PTT, INR in the last 7068 hours. MICRO Microbiology Results (Last 30 days) No results found for the last 720 hours. RECENT IMAGING No results found for this visit on 04/06/22 (from the past 24 hour(s)). Signed: Pauline Kincaid MD 04/10/2022 5:26 PM Hospital Medicine Team Pager: [phone] IPI Certification I certify that I am a D-H credentialed attending provider with admitting privileges and that the patient meets or has met medical necessity to require an inpatient IPI level of care meeting a minimum of two midnights or is on the [facility] inpatient only procedure list (status C) due to: monitoring of fluidstatus given an inability to regulate fluid balance and the need for administration or restriction of fluids and hypocalcemia requiring IV correction and endocrine consultation Brie Dowling RN - 04/10/2022 3:44 AM EDT OUTCOME EVALUATION NOTE: OUTCOME SUMMARY: Assumed care of patient. AOx4. VSS on RA. On telemetry, no events. Pt c/o 8/10 back pain. Pt states this pain is baseline. Medical offered but refused. Heating pad ordered. Pt continues to experience mild tingling in lips and fingers. States it has not increased in severity compared to the morning. Calcium levels monitored q4h, uptrending. See Results. Meds given per order. PRN ativan given x1 with effect. No acute issues. Will notify MD of changes. PLAN MOVING FORWARD: Q4h calcium checks. Monitor labs. Monitor VS. INDIVIDUALIZED FALL PREVENTION INTERVENTIONS: Patient-specific fall risk factors per assessment: [current deficits]: Medical equipment. Assistance [level of assistance required for transfers and ambulation]: IND Supervision [direct monitoring required during toileting and ADLs]: Ears on Surveillance [continuous indirect monitoring]: Call ennis within reach. Purposeful rounding. Room near nursing station. Patient-specific fall prevention interventions for sensory deficits provided, if applicable: [X] No CARE PLAN GOAL OUTCOME EVALUATION: Pauline Kincaid MD - 04/09/2022 6:43 PM EDT [facility] Medicine Attending Daily Progress Note Patient Name: Pedro Pablo Cortes Service: Hospital Medicine Admit Date: 04/06/2022 Hospital Day: 3 Date of Service: 04/09/2022 Patient Description: Pedro Pablo Cortes is a 26 y.o. male with ??anxiety/PTSD,??polysubstance abuse??and??MEN1-associated primary hyperparathyroidism??s/p??parathyroidectomy??03/26/2022 c/b refractory hypoc alcemia, who presents to the ED??reporting muscle stiffness,??twitches??as well as??tingling in hands, feet, face, and around his mouth. ASSESSMENT AND PLAN Active Problems: Active Hospital Problems Diagnosis ??? Hypocalcemia Resolved Hospital Problems No resolved problems to display. 26 y.o.??year old male??with??anxiety/PTSD,?polysubstance abuse and MEN1- associated primary hyperp arathyroidism??s/p??subtotal??parathyroidectomy??03/26/2022 c/b refractory hypocalcemia, who presents to the ED??reporting muscle stiffness,??twitches??as well as??tingling in hands, feet, face, and around his mouth, found to have??hypocalcemia 7.7, hypomagnesemia 0.63, hypophosphatemia 5.9. Patient had multiple recent ER presentations he underwent parathyroidectomy for refractory hypocalcemia. EKG showed normal sinus rhythm??with??normal intervals.??Endocrinology??recommended repletion of magnesium, and resuming his home regimen Calcitrol??1mcg twice daily and calcium carbonate 2gm QID. ?? #MEN1-associated primary hyperparathyroidism??s/p??subtotal??parathyroidectomy??c/b refractory hypoca lcemia #Hypomagnesemia #Hyperphosphatemia - Calcium every 4 hours with goal Ca >8-8.5 - Check vitD and urine spot calcium creatinine ratio - Consults to endocrinology and surgical oncology; appreciate recs -Stop calcium gluconate drip for now due to calcium levels. -Continue calcitriol 1 mcg twice daily - Increase calcium carbonate to 2000 mg q 4 hrs. -Increase magnesium oxide to 400 mg TID -Per endocrine, he will need surveillance in outpatient endocrine clinic for MEN1-related tumors. -patient will need teriparatide 20 mcg BID which will need a prior auth, contacting med admit to getit approved for inpatient use for now ?? #Anxiety #PTSD - Continue??buspirone 20 mg??TID - Continue fluoxetine 60 mg daily - Continue gabapentin 600 mg daily ?? #Polysubstance abuse - Confirm home methadone dose - Check urine drug screen - Continue methadone 110mg QD ?? #Constipation - Continue home Colace and sennosides/docusate ?? # Routine: - Prophylaxis: DVT: Lovenox Glycemic control: As above - Nutrition: Regular diet - Code Status: Attempt Cardiopulmonary Resuscitation - Inpatient - Family Communication- Deferred -Disposition: Home without services SUBJECTIVE -Major 24 Hour Events: - Calcium improved with calcium gluconate drip, but now downtrending so drip was replaced. Endocrinefollowing and assisting. Patient was evaluated and examined at bedside. Tingling in fingers improved, but patient did complain of chest discomfort when calcium gluconate was resumed. OBJECTIVE BP 112/56 (BP Location (NBP): Left arm, Patient Position: Lying) Pulse 60 Temp 37.1 ??C (98.8 ??F) (Oral) Resp 16 Ht 177.8 cm (5' 10) Wt 93 kg (205 lb) SpO2 92% BMI 29.41 kg/m?? Temp (24hrs), Av.7 ??C (98 ??F), Min:36.2 ??C (97.2 ??F), Max:37.1 ??C (98.8 ??F) Intake/Output Summary (Last 24 hours) at 04/09/2022 1843 Last data filed at 04/09/2022 0800 Gross per 24 hour Intake 2912 ml Output 950 ml Net 1962 ml Vitals: Last Value Range Last 24 hrs Temperature Temp: 37.1 ??C (98.8 ??F) Temp: [36.2 ??C (97.2 ??F)-37.1 ??C (98.8 ??F)] Heart Rate Heart Rate: 60 Heart Rate: [58-74] Blood Pressure BP: 112/56 BP: (97-112)/(53-57) Respiratory Rate Resp: 16 Resp: [16] SpO2 SpO2: 92 % SpO2: [92 %-96 %] Weight: Last: 93 kg (205 lb) I/Os: 04/08 0701 - 04/09 0700 In: 3012 [P.O.:2242; I.V.:770] Out: 950 [Urine:950] Admit: 96 kg Physical Exam Constitutional: General: He is not in acute distress. Appearance: He is not ill-appearing or diaphoretic. HENT: Head: Normocephalic and atraumatic. Nose: No congestion. Mouth/Throat: Mouth: Mucous membranes are moist. Pharynx: No oropharyngeal exudate. Eyes: General: No scleral icterus. Extraocular Movements: Extraocular movements intact. Pupils: Pupils are equal, round, and reactive to light. Cardiovascular: Rate and Rhythm: Normal rate and regular rhythm. Heart sounds: No murmur heard. Pulmonary: Effort: Pulmonary effort is normal. No respiratory distress. Breath sounds: Normal breath sounds. No stridor. No wheezing, rhonchi or rales. Abdominal: General: Abdomen is flat. Bowel sounds are normal. There is no distension. Palpations: Abdomen is soft. Tenderness: There is no abdominal tenderness. There is no guarding. Musculoskeletal: General: No swelling or deformity. Normal range of motion. Right lower leg: No edema. Left lower leg: No edema. Skin: General: Skin is warm and dry. Coloration: Skin is not jaundiced or pale. Findings: No bruising, erythema, lesion or rash. Neurological: General: No focal deficit present. Mental Status: He is alert and oriented to person, place, and time. Cranial Nerves: No cranial nerve deficit. Sensory: No sensory deficit. Psychiatric: Mood and Affect: Mood normal. Behavior: Behavior normal. LABS CBC: Recent Labs 04/09/22 0100 04/08/22 0453 04/07/22 0515 WBC 8.5 6.5 8.1 HGB 11.1* 13.6* 11.3* PLATELET 241 226 227 BMP: Recent Labs 04/09/22 0100 04/08/22 0453 04/07/22 1203 NA 138 136 141 K 4.2 4.1 4.1 CL 101 97* 100 CO2 28 22 30 BUN 11 9* 7* CREATININE 0.82 0.76* 0.74* GLUCOSE 120 78 97 Calcium, Magnesium, Phosphate: Recent Labs 04/09/22 1625 04/09/22 1237 04/09/22 0838 04/09/22 0439 04/09/22 0100 04/08/22 1955 04/08/22 1547 04/08/22 0453 04/07/22 1203 04/07/22 0515 CALCIUM 8.3* 8.4* 7.7* < > 8.6 8.6 < > 7.3* 7.0* < > 7.2* MAGNESIUM -- -- -- -- 0.78 -- 0.76 0.67* -- 0.76 PHOS -- -- -- -- 6.9* -- -- 6.8* -- 7.0* < > = values in this interval not displayed. LFTs: Recent Labs 04/07/22 0515 AST 15 ALT 17 ALKPHOS 119 BILITOT 0.3 BILIDIR 0.1 Troponin: No results for input(s): TROPONINT, CK in the last 168 hours. ABG: No results for input(s): PHART, SSU3PQK, PO2ART, DKH5CKP in the last 168 hours. Coags: No results for input(s): PT, PTT, INR in the last 7068 hours. MICRO Microbiology Results (Last 30 days) No results found for the last 720 hours. RECENT IMAGING No results found for this visit on 04/06/22 (from the past 24 hour(s)). Signed: Pauline Kincaid MD 04/09/2022 6:43 PM Hospital Medicine Team Pager: #[phone] IPI Certification I certify that I am a D-H credentialed attending provider with admitting privileges and that the patient meets or has met medical necessity to require an inpatient IPI level of care meeting a minimum of two midnights or is on the [facility] inpatient only procedure list (status C) due to: monitoring of fluidstatus given an inability to regulate fluid balance and the need for administration or restriction of fluids and hypocalcemia requiring IV correction and endocrine consultation Alan Dinero MD - 04/09/2022 6:39 PM EDT Images from the original note were not included. Endocrinology Follow up Note Name: Pedro Pablo Cortes Date: 04/09/22 Room: [address] [place] [id number] Reason for Consult: hypocalcemia ID: Pedro Pablo Cortes is a 26 y.o.male with PMH significant for MEN 1 diagnosed at age 18 with primary hyperparathyroidism s/p subtotal parathyroidectomy (3.5 glands removed) on 03/26, who was admitted 04/06/2022 after presenting with tingling in his face, hands and feet and now treated for symptomatic hypocalcemia. We were consulted for refractory hypocalcemia. Interim Events: Patient received IV calcium gluconate drip yesterday which improved his calcium level to about 8.6. The drip was discontinued around 3 AM. Again his calcium dropped to 7.7 this morning. Drip was restarted due to low calcium but calcium at noon came back later at 8.4 so it was discontinued. Patient felt better today without any tingling sensation but endorsed some L chest discomfort and L arm pain. Review of Systems Neurological: Pain in L arm Musculoskeletal: Chest discomfort Vitals BP 112/56 (BP Location (NBP): Left arm, Patient Position: Lying) Pulse 60 Temp 37.1 ??C (98.8 ??F) (Oral) Resp 16 Ht 177.8 cm (5' 10) Wt 93 kg (205 lb) SpO2 92% BMI 29.41 kg/m?? Physical Exam: HEENT: Chovstek's sign negative Ext: no carpopedal spasm Current Medications: Scheduled Meds: ??? ergocalciferoL (vitamin D2) 50,000 Units Oral Daily ??? calcium carbonate 2,000 mg Oral Q4H ??? teriparatide 20 mcg Subcutaneous BID ??? magnesium oxide 400 mg Oral TID ??? sodium chloride 0.9 % (flush) 5 mL Intravenous BID ??? enoxaparin 40 mg Subcutaneous Nightly ??? busPIRone 20 mg Oral TID ??? cloNIDine 0.1 mg Oral Daily ??? docusate sodium 100 mg Oral Daily ??? famotidine 20 mg Oral BID ??? FLUoxetine 60 mg Oral Daily ??? methadone (Methadose) oral liquid 110 mg Oral Daily ??? gabapentin 600 mg Oral TID ??? senna-docusate 2 tablet Oral BID ??? traZODone 100 mg Oral Nightly ??? calciTRIoL 1 mcg Oral BID Continuous Infusions: PRN Meds:.acetaminophen, sodium chloride 0.9 % (flush), lidocaine, LORazepam Imagin03/13/2022 Narrative & Impression EXAMINATION: MRI PITUITARY WWO CONTRAST ?? CLINICAL HISTORY: Patient with MEN-1 (not followed); reports headaches, vision changes, has elevated prolactin Patient with MEN-1 (not followed); reports headaches, vision changes, has elevated prolactin ? TECHNIQUE: MRI of the brain was performed before and following the intravenous administration of 19 cc Dotarem. ?? COMPARISON: None ?? FINDINGS: The pituitary gland is normal in appearance with normal posterior pituitary T1 hyperintensity. There is normal uniform enhancement of the pituitary gland. The cavernous sinuses are normal. The optic chiasm, prechiasmatic optic nerves and visualized post chiasmatic optic pathways are normal. Unremarkable appearance of the infundibulum in the hypothalamus. The visualized cerebral parenchyma is unremarkable. The ventricles are normal in size and configuration. Major intracranial flow voids are patent. The visualized paranasal sinuses are clear. ?? IMPRESSION Normal MRI of the pituitary gland. ?? 03/15/2022 ?? Narrative & Impression EXAMINATION: CT ABDOMEN AND PELVIS W CONTRAST ?? 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 TECHNIQUE: Helical CT of the abdomen ??was performed following the intravenous administration of contrast. Administered 115.0 ml of OMNIPAQUE 350.00 mg/ml. Oral contrast was administered. Arterial and portal venous phase images were obtained. Although an abdomen and pelvis exam was ordered and protocol for, only images of the abdomen were obtained. The patient will return for additional images of the pelvis. ?? COMPARISON: None ?? FINDINGS: ?? Lower chest: Normal. ?? Liver: Normal size. No enhancing lesions. A 1.7 cm region of low attenuation is seen adjacent to the falciform ligament, felt to be focal fatty change or focal hypoperfusion. It is not a suspicious lesion. Bile ducts: Nondilated. Gallbladder: No calcified gallstones. Normal caliber wall. Pancreas: Normal attenuation without ductal dilatation. Spleen: Normal. Adrenals: Normal. Kidneys: 11 mm cyst upper pole LEFT kidney. No renal masses. No collecting system obstruction bilaterally. Vasculature: No aneurysm. Lymph Nodes: No enlarged lymph nodes. Bowel: Nondilated, no wall thickening. ?? Peritoneum and mesentery: No ascites, free air, or loculated fluid collection. No mesenteric inflammation. Abdominal wall: Normal. ? Osseous structures: No suspicious lesions. ?? IMPRESSION ?? Normal abdominal exam. As described above, due to technical error, the pelvis was not imaged. The patient will return for additional images of the pelvis. ?? Pathology: 03/26/22 DIAGNOSIS A - Right lower parathyroid, excision: Parathyroid gland and adipose tissue B - Right upper parathyroid, excision: Parathyroid ??gland and one benign ??lymph node C - Right central neck content, excision: One benign lymph node D - Left upper parathyroid, excision: Enlarged, hypercellular parathyroid gland E - Left cervical thymus, excision: Benign thymic tissue F - Left lower parathyroid, excision: Parathyroid gland and adipose tissue Labs: Recent Labs 04/09/22 1625 04/09/22 1237 04/09/22 0838 04/09/22 0439 04/09/22 0100 04/08/22 1955 04/08/22 1547 04/08/22 0453 04/07/22 1203 04/07/22 0515 04/06/22 1920 CALCIUM 8.3* 8.4* 7.7* 8.5 8.6 8.6 8.3* 7.3* 7.0* 7.5* 7.2* 7.7* Recent Labs 04/09/22 0100 04/08/22 1547 04/08/22 0453 04/07/22 0515 04/06/22 1920 MAGNESIUM 0.78 0.76 0.67* 0.76 0.63* Recent Labs 04/09/22 0100 04/08/22 0453 04/07/22 0515 10/22/22 1920 PHOS 6.9* 6.8* 7.0* 5.9* ?? Latest Reference Range & Units 04/06/22 19:20 04/07/22 05:15 Creatinine 0.80 - 1.50 mg/dL 0.84 0.77 (L) Albumin 3.2 - 5.2 g/dL ?? 3.5 PTH 15 - 65 pg/mL 6 (L) ?? Latest Reference Range & Units 04/06/22 19:20 25-OH Vit D Total 21 - 100 ng/mL 11 (L) Latest Reference Range & Units 04/08/22 12:40 Ca/Cre Ratio ratio 0.11 U Calcium mg/dL 3.8 U Creatinine mg/dL 36 ? Latest Reference Range & Units 02/21/22 15:36 Chromogranin A <93 ng/mL 81 Prolactin 4.0 - 15.2 ng/mL 17.8 (H) Gastrin pg/mL 146 (H) Assessment and plan: Pedro Pablo Cortes is a 26 y.o.male with PMH significant for MEN 1 diagnosed at age 18 with primary hyperparathyroidism s/p subtotal parathyroidectomy (3.5 glands removed) on 03/26, who was admitted 04/06/2022 after presenting with tingling in his face, hands and feet and now treated for symptomatic hypocalcemia. We were consulted for refractory hypocalcemia. Hypocalcemia 2/2 hypoparathyroidism after post-op parathyroidectomy on 04/06/22 Patient was symptomatic with tingling in his face, hands, feet and back when his calcium is in 7's range. His calcium is still low despite high dose of calcium and active vitamin D. His vit D was very low at 11. Urine calcium excretion was also low, which is correlating with hypocalcemia. Hypocalcemiais likely due to hypoparathyroidism (PTH 6) from surgery and concomitant hungry bone syndrome. We recommend optimizing his calcium to about 4 g elemental calcium per day and optimizing magnesium as this will help improve PTH level and calcium level. His calcium is still fluctuated throughout the day. We plan for teriparatide 20 mcg twice daily injection (into the thigh) to improve refractory hypocalcemia. Since Natpara was being recalled, Endocrine society and ASBMR recommend teriparatide to be usedin the interim. The goal calcium level is 8-8.5. Calcium infusion can be continued while waiting forteriparatide to maintain calcium in 8-8.5 range. MEN1 ?? Work up prior to surgery revealed elevated gastrin level, mildly elevated prolactin and normal chromogranin A. He had an MRI of his pituitary that did not reveal any abnormalities and he had a CT abdomen that also did not show any evidence of neuroendocrine tumors. He has not yet established care with endocrinology but has a visit scheduled with our clinic in the near future (appears to be scheduled on both 04/11/22 and 05/14/22, can keep whichever is first after his discharge). ?? - If calcium<8, start calcium gluconate drip (add 11g of calcium gluconate (1000 mg of elemental calcium) to normal saline to provide final volume of 1000 ml, infusion rate 50 ml/hr - 50 mg of elemental calcium/hour) -Continue calcitriol 1 mcg twice daily - Increase calcium carbonate to 2000 mg 5 times daily. This is 4000 mg of elemental calcium. -Increase magnesium oxide to 400 mg three times daily -Check calcium q 4 hrs with goal Ca >8-8.5 - Start vitamin D2 50,000 units daily for 7 days then recheck vit D level -He will need surveillance in outpatient endocrine clinic for MEN1-related tumors. Thank you for allowing us to participate in the care of this patient. D/W Dr. Dinero. Karina Montalvo MD [facility] [place]Y-4, Fellow Pager #[phone] I have seen the patient and reviewed Dr Marc's history and I agree with the details as written. The assessment and plan were formulated in discussion with me and I agree with them as documented. He has ongoing hypocalcemia related to combination of postoperative hungry bone syndrome, postoperative hypoparathyroidism, severe vitamin D deficiency, and hypomagnesemia He has been tapered off calcium gtt and as of 19:54 today, corrected Ca is around 8.9. I agree with starting teriparatide (truncated PTH analog) 20 mcg BID. This should allow him to stay off the calcium gtt and reduce the burden of large quantities of calcium carbonate. The goal calcium is low normal (8.5) Please continue to monitor serum Ca at least q8h, and daily Magnesium and albumin. If next Ca at target (corrected Ca 8.5 or higher), I recommend reducing calcitriol to 0.5 mcg BID. Continue high dose ergocalciferol daily as described. Alan Dinero MD Plant Physiology Teachersubstance abuse prevention coordinator Endocrinology Section [facility] Roxanne Layne RN - 04/09/2022 5:05 PM EDT OUTCOME EVALUATION NOTE: ?? OUTCOME SUMMARY: ?? Pt alert and oriented during shift. Calcium levels being monitored and replaced with PO calcium carbonate. Endocrinology to bedside during shift, see notes. Pt reported feeling heaviness in chest this afternoon when calcium gluconate drip started, gtt stopped per orders. Chest heaviness went away. Pt on telemetry monitoring. VSS. NAD noted. Pt remains on RA. ?? PLAN MOVING FORWARD: ?? Monitor labs Monitor Neuro Endo consult DC planning ?? INDIVIDUALIZED FALL PREVENTION INTERVENTIONS: ?? Patient-specific fall risk factors per assessment: [current deficits]:?Tingling, weakness ?? Assistance [level of assistance required for transfers and ambulation]:??X 1 stand by ?? Supervision [direct monitoring required during toileting and ADLs]:?Stand by assist ?? Surveillance [continuous indirect monitoring]:?Masimo, hourly rounding, room near unit station? Patient-specific fall prevention interventions for sensory deficits provided, if applicable:?[X] N/A ? CARE PLAN GOAL OUTCOME EVALUATION:? Radha London RN - 04/09/2022 7:29 AM EDT Patient Name:Pedro Pablo Cortes 1 [facility] Telemetry Note Diagnosis r/t telemetry: electrolyte imbalance Subjective: none Objective: Pt on tele, rhythm shows SR/ST/SA, HR 60-111. No reports of chest pain or chest discomfort. Last value Range last 12 hrs Temperature Temp: 36.7 ??C (98 ??F) Temp: [36.6 ??C (97.8 ??F)-36.7 ??C (98 ??F)] Heart Rate Heart Rate: 60 Heart Rate: [58-74] Blood Pressure BP: 109/53 BP: (97-111)/(53-56) Respiratory Rate Resp: 16 Resp: [16] SpO2 SpO2: 95 % SpO2: [94 %-95 %] Cardiac meds: see MAR Assessment: stable at present on tele Plan: continue tele monitoring, assess hemodynamic tolerance of dysrythmia, see tele strip in patient medical record. Radha London RN - 04/09/2022 12:52 AM EDT Patient refusing to wear continuous masimo but does allow spot checks with routine VS. The reason pt gave for this refusal was I just don't want to be connected to that thing all the time, it drives me crazy and gets in the way. Nursing actions taken during this shift to address patient???s refusal included continued education about importance of continuous monitoring. Plan to address patient???s refusal include nursing leadership notified (charge nurse). Roxanne Layne RN - 04/08/2022 6:28 PM EDT OUTCOME EVALUATION NOTE: ?? OUTCOME SUMMARY: ?? Pt alert and oriented during shift. Sleeping for majority of morning. Calcium levels being monitoredand replaced with PO calcium carbonate and IV calcium gluconate gtt infusing per AUG. Pt on telemetry monitoring. VSS. NAD noted. Pt remains on RA. Endorsing tingling in feet and hands during shift, with no resolution. ?? PLAN MOVING FORWARD: ?? Monitor labs Monitor Neuro Endo consult DC planning ?? INDIVIDUALIZED FALL PREVENTION INTERVENTIONS: ?? Patient-specific fall risk factors per assessment: [current deficits]: Tingling, weakness ?? Assistance [level of assistance required for transfers and ambulation]: X 1 stand by ?? Supervision [direct monitoring required during toileting and ADLs]: Stand by assist ?? Surveillance [continuous indirect monitoring]: Masimo, hourly rounding, room near unit station ?? Patient-specific fall prevention interventions for sensory deficits provided, if applicable: [X] N/A ? CARE PLAN GOAL OUTCOME EVALUATION: Pauline Kincaid MD - 04/08/2022 4:09 PM EDT [facility] Medicine Attending Daily Progress Note Patient Name: Pedro Pablo Cortes Service: Hospital Medicine Admit Date: 04/06/2022 Hospital Day: 2 Date of Service: 04/08/2022 Patient Description: PedroP ablo Cortes is a 26 y.o. male with ??anxiety/PTSD,??polysubstance abuse??and??MEN1-associated primary hyperparathyroidism??s/p??parathyroidectomy??03/26/2022 c/b refractory hypoc alcemia, who presents to the ED??reporting muscle stiffness,??twitches??as well as??tingling in hands, feet, face, and around his mouth. ASSESSMENT AND PLAN Active Problems: Active Hospital Problems Diagnosis ??? Hypocalcemia Resolved Hospital Problems No resolved problems to display. 26 y.o.??year old male??with??anxiety/PTSD,?polysubstance abuse and MEN1- associated primary hyperp arathyroidism??s/p??subtotal??parathyroidectomy??03/26/2022 c/b refractory hypocalcemia, who presents to the ED??reporting muscle stiffness,??twitches??as well as??tingling in hands, feet, face, and around his mouth, found to have??hypocalcemia 7.7, hypomagnesemia 0.63, hypophosphatemia 5.9. Patient had multiple recent ER presentations he underwent parathyroidectomy for refractory hypocalcemia. EKG showed normal sinus rhythm??with??normal intervals.??Endocrinology??recommended repletion of magnesium, and resuming his home regimen Calcitrol??1mcg twice daily and calcium carbonate 2gm QID. ?? #MEN1-associated primary hyperparathyroidism??s/p??subtotal??parathyroidectomy??c/b refractory hypoca lcemia #Hypomagnesemia #Hyperphosphatemia - Calcium every 4 hours with goal Ca >8-8.5 - Check vitD and urine spot calcium creatinine ratio - Consults to endocrinology and surgical oncology; appreciate recs -start calcium gluconate drip (add 11g of calcium gluconate (1000 mg of elemental calcium) to normalsaline to provide final volume of 1000 ml, infusion rate 50 ml/hr - 50 mg of elemental calcium/hour) -Continue calcitriol 1 mcg twice daily - Increase calcium carbonate to 1,500 mg q 4 hrs. This is 4000 mg of elemental calcium. -Increase magnesium oxide to 400 mg TID -Per endocrine, he will need surveillance in outpatient endocrine clinic for MEN1-related tumors. -As an outpatient, patient will need teriparatide 20 mcg BID which will need a prior auth ?? #Anxiety #PTSD - Continue??buspirone 20 mg??TID - Continue fluoxetine 60 mg daily - Continue gabapentin 600 mg daily ?? #Polysubstance abuse - Confirm home methadone dose - Check urine drug screen - Continue methadone 110mg QD ?? #Constipation - Continue home Colace and sennosides/docusate ?? # Routine: - Prophylaxis: DVT: Lovenox Glycemic control: As above - Nutrition: Regular diet - Code Status: Attempt Cardiopulmonary Resuscitation - Inpatient - Family Communication- Deferred -Disposition: Home without services SUBJECTIVE -Major 24 Hour Events: - Calcium down to 7. Endocrine recommended calcium gluconate as well as optimization of oral regimen. Patient was evaluated and examined at bedside. Reports tingling in his fingers is coming back. Denies CP or shortness of breath. Denies significant discomfort. Reports he is having bowel movements. OBJECTIVE BP 92/51 (BP Location (NBP): Right arm, Patient Position: Lying) Pulse 73 Temp 36.5 ??C (97.7 ??F) (Oral) Resp 16 Ht 177.8 cm (5' 10) Wt 93 kg (205 lb) SpO2 94% BMI 29.41 kg/m?? Temp (24hrs), Av.5 ??C (97.7 ??F), Min:36.4 ??C (97.5 ??F), Max:36.6 ??C (97.8 ??F) Intake/Output Summary (Last 24 hours) at 04/08/2022 1609 Last data filed at 04/08/2022 1200 Gross per 24 hour Intake 2863 ml Output 700 ml Net 2163 ml Vitals: Last Value Range Last 24 hrs Temperature Temp: 36.5 ??C (97.7 ??F) Temp: [36.4 ??C (97.5 ??F)-36.6 ??C (97.8 ??F)] Heart Rate Heart Rate: 73 Heart Rate: [73-76] Blood Pressure BP: 92/51 BP: (92-107)/(49-67) Respiratory Rate Resp: 16 Resp: [16] SpO2 SpO2: 94 % SpO2: [94 %-98 %] Weight: Last: 93 kg (205 lb) I/Os: 04/07 0701 - 04/08 0700 In: 2650.9 [P.O.:2373; I.V.:177.9] Out: 700 [Urine:700] Admit: 96 kg Physical Exam Constitutional: General: He is not in acute distress. Appearance: He is not ill-appearing or diaphoretic. HENT: Head: Normocephalic and atraumatic. Nose: No congestion. Mouth/Throat: Mouth: Mucous membranes are moist. Pharynx: No oropharyngeal exudate. Eyes: General: No scleral icterus. Extraocular Movements: Extraocular movements intact. Pupils: Pupils are equal, round, and reactive to light. Cardiovascular: Rate and Rhythm: Normal rate and regular rhythm. Heart sounds: No murmur heard. Pulmonary: Effort: Pulmonary effort is normal. No respiratory distress. Breath sounds: Normal breath sounds. No stridor. No wheezing, rhonchi or rales. Abdominal: General: Abdomen is flat. Bowel sounds are normal. There is no distension. Palpations: Abdomen is soft. Tenderness: There is no abdominal tenderness. There is no guarding. Musculoskeletal: General: No swelling or deformity. Normal range of motion. Right lower leg: No edema. Left lower leg: No edema. Skin: General: Skin is warm and dry. Coloration: Skin is not jaundiced or pale. Findings: No bruising, erythema, lesion or rash. Neurological: General: No focal deficit present. Mental Status: He is alert and oriented to person, place, and time. Cranial Nerves: No cranial nerve deficit. Sensory: No sensory deficit. Psychiatric: Mood and Affect: Mood normal. Behavior: Behavior normal. LABS CBC: Recent Labs 04/08/2245204/07/2215 04/06/221919 WBC 6.5 8.1 8.3 HGB 13.6* 11.3* 12.5* PLATELET 226 227 274 BMP: Recent Labs 04/08/2245204/07/22 1203 04/07/22 0515 NA 136 141 139 K 4.1 4.1 3.9 CL 97* 100 101 CO2 22 30 30 BUN 9* 7* 9* CREATININE 0.76* 0.74* 0.77* GLUCOSE 78 97 85 Calcium, Magnesium, Phosphate: Recent Labs 04/08/2245204/07/22120204/07/2251404/06/221919 CALCIUM 7.0* 7.5* 7.2* 7.7* MAGNESIUM 0.67* -- 0.76 0.63* PHOS 6.8* -- 7.0* 5.9* LFTs: Recent Labs 04/07/22514 AST 15 ALT 17 ALKPHOS 119 BILITOT 0.3 BILIDIR 0.1 Troponin: No results for input(s): TROPONINT, CK in the last 168 hours. ABG: No results for input(s): PHART, USL3VSS, PO2ART, SAM8OMB in the last 168 hours. Coags: No results for input(s): PT, PTT, INR in the last 7068 hours. MICRO Microbiology Results (Last 30 days) No results found for the last 720 hours. RECENT IMAGING No results found for this visit on 04/06/22 (from the past 24 hour(s)). Signed: Pauline Kincaid MD 04/08/2022 4:09 PM Hospital Medicine Team Pager: #[phone] IPI Certification I certify that I am a [facility] credentialed attending provider with admitting privileges and that the patient meets or has met medical necessity to require an inpatient IPI level of care meeting a minimum of two midnights or is on the [facility] inpatient only procedure list (status C) due to: monitoring of fluidstatus given an inability to regulate fluid balance and the need for administration or restriction of fluids and hypocalcemia requiring IV correction and endocrine consultation Alan Dinero MD - 04/08/2022 10:36 AM EDT Images from the original note were not included. Endocrinology Follow up Note Name: Pedro Pablo Cortes Date: 04/08/22 Room: [address] [place] [id number] Reason for Consult: hypocalcemia ID: Pedro Pablo Cortes is a 26 y.o.male with PMH significant for MEN 1 diagnosed at age 18 with primary hyperparathyroidism s/p subtotal parathyroidectomy (3.5 glands removed) on 03/26, who was admitted 04/06/2022 after presenting with tingling in his face, hands and feet and now treated for symptomatic hypocalcemia. We were consulted for refractory hypocalcemia. Interim Events: Patient got IV calcium gluconate 1 g x 4 doses in the past 2 days. Received Mag 2 g IV x 2. Currently on TUMS 2000 mg qid and mag ox 400 mg bid. Repeat Ca this morning was 7.0 with Mag 0.67. He was symptomatic with tingling in his feet, hands, legs and back but felt better than yesterday. Review of Systems Constitutional: No tiredness, recent weight change, no heat or cold intolerance Endocrine: No thyroid problems. No abnormal sweating or flushing. No galactorrhea or breast tenderness. Normal sexual desire. Integument: No excessive hair growth, balding, acne or oily skin. No ulcerations. No easily bruising. Neurological: Tingling in his feet, hands, legs and back. No headache or weakness. No seizure, fainting or dizziness Eyes: No recent vision changes ENT: No dysphagia, dental issues Cardiovascular: No chest pain or palpitations Respiratory: No cough, wheezing, shortness of breath GI: Normal appetite. No nausea, vomiting, diarrhea, constipation : No frequent urinary tract infections or polyuria Musculoskeletal: No joint aches, muscle pain. No back pain Psychiatric: No depression, anxiety Vitals BP 93/49 Pulse 73 Temp 36.4 ??C (97.5 ??F) (Oral) Resp 16 Ht 177.8 cm (5' 10) Wt 93 kg (205 lb) SpO2 98% BMI 29.41 kg/m?? Physical Exam: Deferred Current Medications: Scheduled Meds: ??? magnesium sulfate 2 g Intravenous Once ??? sodium chloride 0.9 % (flush) 5 mL Intravenous BID ??? enoxaparin 40 mg Subcutaneous Nightly ??? busPIRone 20 mg Oral TID ??? cloNIDine 0.1 mg Oral Daily ??? docusate sodium 100 mg Oral Daily ??? famotidine 20 mg Oral BID ??? FLUoxetine 60 mg Oral Daily ??? methadone (Methadose) oral liquid 110 mg Oral Daily ??? magnesium oxide 400 mg Oral BID ??? gabapentin 600 mg Oral TID ??? senna-docusate 2 tablet Oral BID ??? traZODone 100 mg Oral Nightly ??? calciTRIoL 1 mcg Oral BID ??? calcium carbonate 2,000 mg Oral 4 Times Daily Continuous Infusions: PRN Meds:.sodium chloride 0.9 % (flush), lidocaine, LORazepam Imagin03/13/2022 Narrative & Impression EXAMINATION: MRI PITUITARY WWO CONTRAST ?? CLINICAL HISTORY: Patient with MEN-1 (not followed); reports headaches, vision changes, has elevated prolactin Patient with MEN-1 (not followed); reports headaches, vision changes, has elevated prolactin ? TECHNIQUE: MRI of the brain was performed before and following the intravenous administration of 19 cc Dotarem. ?? COMPARISON: None ?? FINDINGS: The pituitary gland is normal in appearance with normal posterior pituitary T1 hyperintensity. There is normal uniform enhancement of the pituitary gland. The cavernous sinuses are normal. The optic chiasm, prechiasmatic optic nerves and visualized post chiasmatic optic pathways are normal. Unremarkable appearance of the infundibulum in the hypothalamus. The visualized cerebral parenchyma is unremarkable. The ventricles are normal in size and configuration. Major intracranial flow voids are patent. The visualized paranasal sinuses are clear. ?? IMPRESSION Normal MRI of the pituitary gland. ?? 03/15/2022 ?? Narrative & Impression EXAMINATION: CT ABDOMEN AND PELVIS W CONTRAST ?? 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 TECHNIQUE: Helical CT of the abdomen ??was performed following the intravenous administration of contrast. Administered 115.0 ml of OMNIPAQUE 350.00 mg/ml. Oral contrast was administered. Arterial and portal venous phase images were obtained. Although an abdomen and pelvis exam was ordered and protocol for, only images of the abdomen were obtained. The patient will return for additional images of the pelvis. ?? COMPARISON: None ?? FINDINGS: ?? Lower chest: Normal. ?? Liver: Normal size. No enhancing lesions. A 1.7 cm region of low attenuation is seen adjacent to the falciform ligament, felt to be focal fatty change or focal hypoperfusion. It is not a suspicious lesion. Bile ducts: Nondilated. Gallbladder: No calcified gallstones. Normal caliber wall. Pancreas: Normal attenuation without ductal dilatation. Spleen: Normal. Adrenals: Normal. Kidneys: 11 mm cyst upper pole LEFT kidney. No renal masses. No collecting system obstruction bilaterally. Vasculature: No aneurysm. Lymph Nodes: No enlarged lymph nodes. Bowel: Nondilated, no wall thickening. ?? Peritoneum and mesentery: No ascites, free air, or loculated fluid collection. No mesenteric inflammation. Abdominal wall: Normal. ? Osseous structures: No suspicious lesions. ?? IMPRESSION ?? Normal abdominal exam. As described above, due to technical error, the pelvis was not imaged. The patient will return for additional images of the pelvis. ?? Pathology: 03/26/22 DIAGNOSIS A - Right lower parathyroid, excision: Parathyroid gland and adipose tissue B - Right upper parathyroid, excision: Parathyroid ??gland and one benign ??lymph node C - Right central neck content, excision: One benign lymph node D - Left upper parathyroid, excision: Enlarged, hypercellular parathyroid gland E - Left cervical thymus, excision: Benign thymic tissue F - Left lower parathyroid, excision: Parathyroid gland and adipose tissue Labs: Recent Labs 04/08/22 0453 04/07/22 1203 04/07/22 0515 04/06/22 192 CALCIUM 7.0* 7.5* 7.2* 7.7* Recent Labs 04/08/22 0453 04/07/22 0515 04/06/221919 MAGNESIUM 0.67* 0.76 0.63* Recent Labs 04/08/22 0453 04/07/22 0515 04/06/22 192 PHOS 6.8* 7.0* 5.9* ?? Latest Reference Range & Units 04/06/22 19:20 04/07/22 05:15 Creatinine 0.80 - 1.50 mg/dL 0.84 0.77 (L) Albumin 3.2 - 5.2 g/dL ?? 3.5 PTH 15 - 65 pg/mL 6 (L) ? Latest Reference Range & Units 02/21/22 15:36 Chromogranin A <93 ng/mL 81 Prolactin 4.0 - 15.2 ng/mL 17.8 (H) Gastrin pg/mL 146 (H) Assessment and plan: Pedro Pablo Cortes is a 26 y.o.male with PMH significant for MEN 1 diagnosed at age 18 with primary hyperparathyroidism s/p subtotal parathyroidectomy (3.5 glands removed) on 03/26, who was admitted 04/06/2022 after presenting with tingling in his face, hands and feet and now treated for symptomatic hypocalcemia. We were consulted for refractory hypocalcemia. Hypocalcemia 2/2 hypoparathyroidism after post-op parathyroidectomy on 04/06/22 Patient was symptomatic with tingling in his face, hands, feet and back when his calcium is in 7's range. His calcium is still low despite high dose of calcium and active vitamin D. This is likely due to hypoparathyroidism (PTH 6) from surgery, still cannot rule out hungry bone syndrome as we don't have vit D level pre-op. We recommend optimizing his calcium to about 4 g elemental calcium per day andoptimizing magnesium as this will help improve PTH level and calcium level. Also please get vit D level and urine calcium/albumin ratio to assess if he needs inactive vitamin D and assess if patient islosing calcium through urine, respectively. Currently his calcium is at 7.0 which can predispose himto arrhythmia. We recommend starting calcium gluconate infusion, putting patient on telemetry and recheck calcium q 4 hrs. The goal calcium level is 8-8.5. Calcium infusion can be discontinued if calcium remains in 8-8.5 range. MEN1 ?? Work up prior to surgery revealed elevated gastrin level, mildly elevated prolactin and normal chromogranin A. He had an MRI of his pituitary that did not reveal any abnormalities and he had a CT abdomen that also did not show any evidence of neuroendocrine tumors. He has not yet established care with endocrinology but has a visit scheduled with our clinic in the near future (appears to be scheduled on both 04/11/22 and 05/14/22, can keep whichever is first after his discharge). ?? - start calcium gluconate drip (add 11g of calcium gluconate (1000 mg of elemental calcium) to normal saline to provide final volume of 1000 ml, infusion rate 50 ml/hr - 50 mg of elemental calcium/hour) -Continue calcitriol 1 mcg twice daily - Increase calcium carbonate to 1,500 mg q 4 hrs. This is 4000 mg of elemental calcium. -Increase magnesium oxide to 400 mg three times daily -Check calcium q 4 hrs with goal Ca >8-8.5 - check vitD and urine spot calcium creatinine ratio -He will need surveillance in outpatient endocrine clinic for MEN1-related tumors. Thank you for allowing us to participate in the care of this patient. D/W Dr. Dinero. Karina Montalvo MD [facility] [place] PGY-4, Fellow Pager #[phone] I have seen the patient and reviewed Dr Montalvo's history and I agree with the details as written. The assessment and plan were formulated in discussion with me and I agree with them as documented. Subjective: patient denies paresthesias but does have ongoing brain fog VS reviewed General: pleasant, sitting comfortably, no distress Eyes: EOMI, no proptosis, no periorbital edema Head/mouth: normocephalic/atraumatic, +[place] sign Neck: no supraclavicular fat pads, trachea midline Resp: breathing comfortably on room air, no audible stridor, normal respiratory effort Psych: normal affect, alert and oriented to person/place/time A/P: Profound hypocalcemia related to postoperative hungry bone syndrome and postop hypoparathyroidism Agree with increasing calcium supplementation to 1 gram elemental q6h Replete magnesium to normal range as described Calcium gtt is essentially in near term given severe symptomatic hypocalcemia, with ongoing symptoms Check calcium, magnesium levels q4-6h. Calcium gtt rate should be titrated to increase the correctedserum Ca to at least close to the low normal range (8-8.5 mg/dL) Please place order for telemetry for this patient. Given very low calcium he is at risk for arrhythmias If he is still requiring calcium gtt to maintain calcium near the normal range, we will recommend starting teriparatide (truncated PTH analog) Please page endocrinology with questions Alan Dinero MD Plant Physiology Teachersubstance abuse prevention coordinator Endocrinology Section [facility] Crow Pagan MD - 04/08/2022 7:23 AM EDT General Surgery Resident Inpatient Progress Note ID: Pedro Pablo Cortes is a 26 y.o. male with a history of MEN1, anxiety, polysubstance abuse on methadone, PTSD who presents with hypocalcemia following parathyroidectomy 03/26/22. Hospital Day: 2 Operations: None 24hr events/Subjective ?? Numbness around mouth and in fingertips and toes improved this AM versus yesterday ?? Still with moderate fatigue and weakness, but also improved O: Last value Range last 24hrs Temperature Temp: 36.4 ??C (97.5 ??F) Temp: [36.1 ??C (97 ??F)-37 ??C (98.6 ??F)] Heart Rate Heart Rate: 73 Heart Rate: [63-77] Blood Pressure BP: 103/65 BP: (94-111)/(61-69) Respiratory Rate Resp: 16 Resp: [13-16] SpO2 SpO2: 98 % SpO2: [95 %-98 %] 04/07 0701 - 04/08 0700 In: 2650.9 [P.O.:2373; I.V.:177.9] Out: 700 [Urine:700] Physical Exam: General: NAD, fatigued, pleasant, conversant CVS: RRR Pulm: unlabored Abd: soft, nontender, non-distended Ext: wwp Neuro: nonfocal,moving all four extremities spontaneously, improved configuration developer strength Labs Last 3 wbc, hgb, hct plt Recent Labs 04/08/22 0453 04/07/22 0515 04/06/22 1920 WBC 6.5 8.1 8.3 HGB 13.6* 11.3* 12.5* HCT 41.6 32.9* 36.6* PLATELET 226 227 274 Last 3 Lytes Recent Labs 04/08/22 0453 04/07/22 1203 04/07/22 0515 NA 136 141 139 K 4.1 4.1 3.9 CL 97* 100 101 CO2 22 30 30 BUN 9* 7* 9* CREATININE 0.76* 0.74* 0.77* Last Ca, Mg, Phos Recent Labs 04/08/22 0453 CALCIUM 7.0* PHOS 6.8* MAGNESIUM 0.67* Imaging: Reviewed in eDH. Notable for normal CT head. Assessment: Pedro Pablo Cortes is a 26 y.o. male s/p parathyroidectomy on 03/26/22, now admitted with symptomatic hypocalcemia. PTH 6. Admitted to medicine, endocrinology following, appreciate their care. No new recommendations. We will continue to follow. Crow Pagan MD 04/08/2022 Surg Onc [id number] Jordan Marinelli MD - 04/07/2022 9:51 AM EDT General Surgery Resident Inpatient Progress Note ID: Pedro Pablo Cortes is a 26 y.o. male with a history of MEN1, anxiety, polysubstance abuse on methadone, PTSD who presents with hypocalcemia following parathyroidectomy 03/26/22. Hospital Day: 1 Operations: None 24hr events/Subjective ?? Admitted to medicine service ?? Continues with fatigue, weakness. Numbness/tingling slightly improved. O: Last value Range last 24hrs Temperature Temp: 37.2 ??C (98.9 ??F) Temp: [37.2 ??C (98.9 ??F)] Heart Rate Heart Rate: 74 Heart Rate: [55-97] Blood Pressure BP: 101/60 BP: (93-117)/(49-80) Respiratory Rate Resp: 13 Resp: [9-20] SpO2 SpO2: 98 % SpO2: [92 %-100 %] No intake/output data recorded. Physical Exam: General: NAD, fatigued, pleasant, conversant CVS: RRR Pulm: unlabored Abd: soft, nontender, non-distended Ext: wwp Neuro: nonfocal,moving all four extremities spontaneously, slightly weaker configuration developer than expected Labs Reviewed in eDH. Notable for hypocalcemia, hyperphosphatemia Imaging: Reviewed in eDH. Notable for normal CT head. Assessment: Pedro Pablo Cortes is a 26 y.o. male s/p parathyroidectomy on 03/26/22, now admitted with symptomatic hypocalcemia. PTH 6. Admitted to medicine, endocrinology following, appreciate their care. No new recommendations. We will continue to follow. Jordan Marinelli MD 04/07/2022 Surg Onc [id number] Britni Gonzalez MD - 04/07/2022 9:02 AM EDT Hospital Medicine Attending Daily Progress Note Date of Admission: 04/06/2022 ( Hospital Day 1 day ) ID: 26 y.o. 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 Hospital Problem List: Active Hospital Problems Diagnosis ??? Hypocalcemia Resolved Hospital Problems No resolved problems to display. PMH: Past Medical History: Diagnosis Date ??? Anxiety ??? History of drug abuse ??? Hypercholesteremia ??? PTSD (post-traumatic stress disorder) 24 Hour Events/Subjective: - No acute events overnight - Improved tingling this morning - Denies headaches, fevers/chills, appetite changes Inpatient Medications: Scheduled Meds: ??? sodium chloride 0.9 % (flush) 5 mL Intravenous BID ??? enoxaparin 40 mg Subcutaneous Nightly ??? busPIRone 20 mg Oral TID ??? cloNIDine 0.1 mg Oral Daily ??? docusate sodium 100 mg Oral Daily ??? famotidine 20 mg Oral BID ??? FLUoxetine 60 mg Oral Daily ??? gabapentin 600 mg Oral Daily ??? senna-docusate 1 tablet Oral BID ??? methadone (Methadose) oral liquid 110 mg Oral Daily ??? methadone (Methadose) oral liquid 10 mg Oral Daily ??? calciTRIoL 1 mcg Oral BID ??? calcium carbonate 2,000 mg Oral 4 Times Daily Continuous Infusions: PRN Meds: sodium chloride 0.9 % (flush), lidocaine Vitals: Last value Range last 24 hrs Temperature Temp: 37.2 ??C (98.9 ??F) Temp: [37.2 ??C (98.9 ??F)] Heart Rate Heart Rate: 74 Heart Rate: [55-97] Blood Pressure BP: 101/60 BP: (93-117)/(49-80) Respiratory Rate Resp: 13 Resp: [9-20] SpO2 SpO2: 98 % SpO2: [92 %-100 %] Ins/Outs: Intake/Output Summary (Last 24 hours) at 04/07/2022 09 Last data filed at 04/07/2022 0857 Gross per 24 hour Intake 267.92 ml Output -- Net 267.92 ml Physical Exam: Gen: WDWN man lying in bed in NAD HEENT: NCAT, EOMI CV: Regular rate and rhythm, no murmurs/rubs/gallops Pulm: Normal respiratory effort, speaking normally, no audible respiratory sounds, clear to auscultation bilaterally, normal expiratory phase, no rales/rhonchi/wheezes, Abd: +BS, soft, non-tender/distended, no HSM Ext: No pedal edema Skin: Warm, dry Neuro: Awake, alert, answers questions appropriately Labs: CBC: Recent Labs 04/07/2215 04/06/221919 WBC 8.1 8.3 HGB 11.3* 12.5* PLATELET 227 274 Chemistry: Recent Labs 04/07/22 0515 04/06/22191902/21/22 1536 NA 139 142 136 K 3.9 4.1 4.1 CL 101 102 101 CO2 30 29 29 BUN 9* 8* 11 CREATININE 0.77* 0.84 0.96 GLUCOSE 85 102 103 Recent Labs 04/07/22 0515 04/06/22191902/21/22 1536 CALCIUM 7.2* 7.7* 11.3* MAGNESIUM 0.76 0.63* -- PHOS 7.0* 5.9* -- LFT's: Recent Labs 04/07/22514 BILITOT 0.3 BILIDIR 0.1 ALBUMIN 3.5 ALKPHOS 119 ALT 17 AST 15 Microbiology: None new Pertinent Radiology/Diagnostic Studies: CT Head wo Contrast (04/06/2022) No acute intracranial abnormality. Assessment/Plan: 26 y.o.??year old male??with anxiety/PTSD, polysubstance abuse and MEN1-associated primary hyperparathyroidism s/p subtotal parathyroidectomy 03/26/2022 c/b refractory hypocalcemia, who presents to the ED reporting muscle stiffness, twitches as well as tingling in hands, feet, face, and around his mouth, found to have hypocalcemia 7.7, hypomagnesemia 0.63, hypophosphatemia 5.9. Patient had multiple recent ER presentations he underwent parathyroidectomy for refractory hypocalcemia. EKG showed normal sinus rhythm with normal intervals. Endocrinology recommended repletion of magnesium, and resuming his home regimen Calcitrol 1mcg twice daily and calcium carbonate 2gm QID. ?? #MEN1-associated primary hyperparathyroidism s/p subtotal parathyroidectomy c/b refractory hypocalcemia #Hypomagnesemia #Hyperphosphatemia - BMP BID - Repletion of Ca, and Mg as needed - Continue home Calcitrol 1mcg twice daily and calcium carbonate 2gm QID - Seizure precautions - Consults to endocrinology and surgical oncology; appreciate recs ?? #Anxiety #PTSD - Continue buspirone 20 mg TID - Continue fluoxetine 60 mg daily - Continue gabapentin 600 mg daily ?? #Polysubstance abuse - Confirm home methadone dose (closed on Friday) - Check urine drug screen - Continue methadone 110mg QD ?? #Constipation - Continue home Colace and sennosides/docusate #Housekeeping: - DVT PPx: Enoxaparin - GI PPx: None - Diet: Regular diet - IV/Tubes/Drains: PIV - Code status: Attempt Cardiopulmonary Resuscitation - Inpatient - Dispo: pending course IPI Certification I certify that I am a [facility] credentialed attending provider with admitting privileges and that the patient meets or has met medical necessity to require an inpatient IPI level of care meeting a minimum of two midnights or is on the [facility] inpatient only procedure list (status C) due to: monitoring of fluidstatus given an inability to regulate fluid balance and the need for administration or restriction of fluids and severe symptomatic hypocalcemia Team Pager ( Coverage 06/01): #[phone] PCP: None Britni Gonzalez MD 04/07/22 documented in this encounter H&P Notes Oscar Zazueta MD - 04/06/2022 10:30 PM EDT Inpatient Hospital Medicine - Admission Note Problem List: Active Hospital Problems Diagnosis ??? Hypocalcemia Resolved Hospital Problems No resolved problems to display. History of Present Illness: ??Pedro Pablo Cortes??is a 26 y.o.??year old male??with anxiety/PTSD, polysubstance abuse and MEN1-associated primary hyperparathyroidism s/p parathyroidectomy 03/26/2022 c/b refractory hypocalcemia, who presents to the ED reporting muscle stiffness, twitches as well as tingling in hands, feet, face, and around his mouth. States that he has had multiple similar ER presentations since surgery. States he had an episode of muscle spasm and was intubated briefly for airway protection at OSH last week. He endorses muscle twitching, numbness, right sided weakness, blurry vision in his right eye, fatigue, confusion. Reports chest pain, PRABHAKAR which get better with anxiety medications. He also reports 1 week history of rash/skinirritation where the EKG electrodes were attached. Denies nausea, vomiting, abdominal pain, bowel orurinary habit changes. Denies fever, chills, appetite or weight changes. States that he is compliantwith home medications. Denies smoking, drinking alcohol and illicit drug use. Review of Systems: Negative except as noted above ED course: -Vital signs: Temp 37.2 ??C, pulse 97, BP 111/80, RR 18, SPO2 96% on RA -Lab tests: CBC remarkable for low H&H at 12.5 and 36.6 BMP remarkable for hypocalcemia 7.7, hypomagnesemia 0.63, hypophosphatemia 5.9 VBG pH 7.35 -EKG shows normal sinus rhythm. Nonspecific T wave abnormality. Normal intervals. -CT Head wo Contrast IMPRESSION No acute intracranial abnormality. -Endocrinology recommended repletion of magnesium, and resuming his home regimen Calcitrol 1mcg twice daily and calcium carbonate 2gm QID -Surgery recommended checking PTH level -Management: Calcium gluconate 1 g IV x2, magnesium 2 g IV, Calcitrol 1 mcg p.o., calcium carbonate 2 g p.o. -Family History: Father with MEN type I Past Medical and Surgical History: Past Medical History: Diagnosis Date ??? Anxiety ??? History of drug abuse ??? Hypercholesteremia ??? PTSD (post-traumatic stress disorder) Past Surgical History: Procedure Laterality Date ??? PRG EMG, LARYNX N/A 03/26/2022 FACIAL NERVE MONITORING, SETUP LARYNGEAL (WRVU 1.57) performed by Joyce Nelson MD at [facility] ??? PRO EXPLORE PARATHYROID GLANDS N/A 03/26/2022 PARATHYROIDECTOMY OR EXPLORATION OF PARATHYROID(S) (WRVU 15.6) performed by Joyce Nelson MD at [facility] Prior To Admission Medications: (Not in a hospital admission) Allergies: Allergies Allergen Reactions ??? Codeine Tightening of chest, wheezing ??? Morphine Other (See Comments) unknown Family History: No family history on file. Social History and Habits: Social History Socioeconomic History ??? Marital status: Single Spouse name: Not on file ??? Number of children: Not on file ??? Years of education: Not on file ??? Highest education level: Not on file Occupational History ??? Not on file Tobacco Use ??? Smoking status: Never Smoker ??? Smokeless tobacco: Never Used Substance and Sexual Activity ??? Alcohol use: Not on file ??? Drug use: Not on file ??? Sexual activity: Not on file Other Topics Concern ??? Not on file Social History Narrative ??? Not on file Social Determinants of Health Financial Resource Strain: Not on file Food Insecurity: Not on file Transportation Needs: Not on file Physical Activity: Not on file Housing Stability: Not on file Immunizations: There is no immunization history on file for this patient. Physical Exam: Last Set of Vitals and range of vitals over past 24 hours: Last value Range last 24 hrs Temperature Temp: 37.2 ??C (98.9 ??F) Temp: [37.2 ??C (98.9 ??F)] Heart Rate Heart Rate: 76 Heart Rate: [74-97] Blood Pressure BP: 111/60 BP: (106-111)/(60-80) Respiratory Rate Resp: 13 Resp: [13-18] SpO2 SpO2: 96 % SpO2: [93 %-96 %] Body mass index is 32.26 kg/m??. Physical Exam Constitutional: General: He is in acute distress (mild). Appearance: Normal appearance. HENT: Head: Normocephalic and atraumatic. Nose: Nose normal. Mouth/Throat: Pharynx: Oropharynx is clear. Eyes: Extraocular Movements: Extraocular movements intact. Pupils: Pupils are equal, round, and reactive to light. Cardiovascular: Rate and Rhythm: Normal rate and regular rhythm. Heart sounds: No murmur heard. Pulmonary: Effort: No respiratory distress. Abdominal: General: There is no distension. Tenderness: There is no abdominal tenderness. Musculoskeletal: Right lower leg: No edema. Left lower leg: No edema. Skin: Findings: Rash present. Neurological: Mental Status: He is alert and oriented to person, place, and time. Sensory: No sensory deficit. Motor: No weakness. Psychiatric: Mood and Affect: Mood normal. Behavior: Behavior normal. Laboratory (Last 24 Hours): Recent Results (from the past 24 hour(s)) Basic Metabolic Panel (non-fasting) Result Value Ref Range Glucose Lvl 102 65 - 199 mg/dL BUN 8 (L) 10 - 20 mg/dL Creatinine 0.84 0.80 - 1.50 mg/dL Sodium 142 135 - 145 mmol/L Potassium 4.1 3.5 - 5.0 mmol/L Chloride 102 98 - 107 mmol/L CO2 29 22 - 31 mmol/L Anion Gap 11 5 - 15 mmol/L Calcium 7.7 (L) 8.5 - 10.5 mg/dL Estimated GFR 122 >=60 mL/min/1.73 m?? Magnesium Result Value Ref Range Magnesium 0.63 (L) 0.69 - 1.07 mmol/L Phosphorus Result Value Ref Range Phosphorus 5.9 (H) 2.5 - 4.5 mg/dL Hemogram Result Value Ref Range WBC 8.3 4.0 - 9.5 x10(3)/mcL RBC 4.09 (L) 4.58 - 5.54 x10(6)/mcL Hemoglobin 12.5 (L) 13.7 - 16.5 g/dL Hematocrit 36.6 (L) 40.5 - 48.5 % MCV 89.5 82.9 - 93.1 fL MCH 30.6 27.5 - 32.1 pg MCHC 34.2 32.0 - 35.7 g/dL Platelets 274 145 - 357 x10(3)/mcL RDWSD 37.6 36.0 - 45.0 fL RDWCV 11.6 11.4 - 13.8 % MPV 10.8 7.6 - 12.9 fL nRBC % Auto 0.0 % nRBC Abs Auto 0.000 0.000 - 0.000 x10(3)/mcL Differential, Automated Result Value Ref Range Neutrophils % 61.0 % Neutr Abs (ANC) 5.09 1.70 - 6.10 x10(3)/mcL Lymphocytes % 26.7 % Lymphocytes Abs 2.2 0.9 - 3.2 x10(3)/mcL Monocytes % 9.2 % Monocyte Abs 0.8 0.3 - 0.9 x10(3)/mcL Eosinophils % 2.2 % Eosinophils Abs 0.2 0.0 - 0.4 x10(3)/mcL Basophils % 0.5 % Basophils Abs 0.0 0.0 - 0.1 x10(3)/mcL Immature Gran % 0.40 % Ana Gran Abs 0.03 0.00 - 0.04 x10(3)/mcL Gold Tube HOLD Result Value Ref Range Gold Hold Sample in lab. Calcium Ionized Whole Blood, ADAM Result Value Ref Range pH Adam 7.35 7.32 - 7.42 ICa Whole Blood 0.99 (L) 1.15 - 1.33 mmol/L Assessment and plan: ??Pedro Pablo Cortes??is a 26 y.o.??year old male??with anxiety/PTSD, polysubstance abuse and MEN1-associated primary hyperparathyroidism s/p subtotal parathyroidectomy 03/26/2022 c/b refractory hypocalcemia, who presents to the ED reporting muscle stiffness, twitches as well as tingling in hands, feet, face, and around his mouth, found to have hypocalcemia 7.7, hypomagnesemia 0.63, hypophosphatemia 5.9. Patient had multiple recent ER presentations he underwent parathyroidectomy for refractory hypocalcemia. EKG showed normal sinus rhythm with normal intervals. Endocrinology recommended repletion of magnesium, and resuming his home regimen Calcitrol 1mcg twice daily and calcium carbonate 2gm QID. #MEN1-associated primary hyperparathyroidism s/p subtotal parathyroidectomy c/b refractory hypocalcemia #Hypomagnesemia #Hyperphosphatemia -BMP BID -Repletion of Ca, and Mg as needed -Continue home Calcitrol 1mcg twice daily and calcium carbonate 2gm QID -Seizure precautions -Consults to endocrinology and surgical oncology; appreciate recs #Anxiety #PTSD -Continue buspirone 20 mg TID -Continue fluoxetine 60 mg daily -Continue gabapentin 600 mg daily #Polysubstance abuse -Confirm home methadone dose -Check urine drug screen #Constipation -Continue home Colace and sennosides/docusate -IV Access: PIV -Diet: Regular -DVT PX: Lovenox SC -GI PPx: Home Pepcid -CODE STATUS: Full code A copy of this document will be sent to the patient's Primary Care Physician and/or Referring Physician. Oscar Zazueta MD 04/06/2022 documented in this encounter ED Notes Guru Sauer RN - 04/07/2022 8:41 AM EDT Pt states he is on methadone 110mg daily in the morning. Gets filled at: [facility] Address: [address] [place], [place] [id number] Paged admitting team for request of medication Guru Sauer RN - 04/07/2022 8:10 AM EDT Pt resting in the room with no distress. Updated PT on POC. Breakfast provided and at thjis time PT express no further needs. Mandi Chamorro RN - 04/07/2022 12:59 AM EDT Patient placed on Hospital bed for comfort. Call ennis within reach. Instructed patient on use of bed Roberta Izaguirre MD - 04/06/2022 7:22 PM EDT ED Resident Note HPI: Pedro Pablo Cortes is a 26 y.o. male with recent parathyroidectomy on 03/26/22 for MEN1 primary hyperparathyroidism who presents to the Emergency Department for I feel my calcium is low. He reports a lot of numbness and tingling around his mouth and in his feet, hands, arms, and face. Symptoms would improve with calcium repletion. He feels that my bones will lock up and I will have these weird seizure-like things/muscle twitching where my hand, feet, and neck muscles will start tensing up. He feels nervous about having another muscle spasm spell. He currently reports that he feels shaky and cold. He reports that he has spells where his jaw and every part of my body locks up. Per pt, at [facility] in the past week (sometime around Mar 29 or ), he had a 30 minute episode where all his muscles locked up and required intubation; he also reports that he feels stupid, like something happened to his brain ever since that episode. He reports that he has had right-sided weakness (arms and legs), heavy and blurry R eye vision (normally 20/20), and increased confusion, all ongoing every since this episode that had required intubation. He was just discharged from [facility] in [place] this morning after a 5 day hospital stay for the same symptoms; he was told that his calcium and magnesium levels were still low, and he doesn't know why he was discharged home when they were still low. Before that hospital, he went to [facility] and [facility] emergency departments who gave him calcium and then transferred him to [facility] for admission for IV calcium gluconate. He reports that he had specifically talked to [facility] [place] who said that he was supposed to stay admitted if he feels unwell, which he still feels unwell and never felt well before discharge. He denies any palpitations. ROS negative for headache, sore throat, or recent illness. He has an upcoming new patient appointment with [facility] [place] on 04/11/22. He was discharged from [facility] with the following recommendations: Tums 2000mg three to four times a day with meals; Calcitriol 0.5 mcg tablet twice a day; and magnesium 71.5-119mg 2 tablet by mouth 3 times a day. If takes a PPI, calcium citrate 950 mg 2 tablets three times daily PMH: - MEN1 with primary hyperparathyroidism - PTSD - Anxiety, on lorazepam 1mg up to three times daily as needed. Last taken earlier today upon hospital discharge Pt was seen under the supervision of an attending physician. Review of Systems Constitutional: Positive for fatigue. HENT: Negative for sore throat. Eyes: Positive for visual disturbance (R eye heaviness/blurred vision). Respiratory: Negative for shortness of breath. Cardiovascular: Positive for chest pain (associated with anxiety, per pt). Endocrine: MEN1 with primary hyperparathyroidism s/p parathyroidectomy (03/26/22) Genitourinary: Negative for difficulty urinating. Musculoskeletal: Negative for neck pain. Muscle spasms Skin: Positive for rash (secondary to adhesives from EKG in the last week). Negative for wound. Neurological: Positive for tremors and numbness. Psychiatric/Behavioral: Positive for confusion. Negative for agitation. Pertinent positives and negatives are included in the HPI, otherwise at least ten systems were reviewed and negative. Past Medical and Surgical Histories, Social History, Medications, Allergies were reviewed in the chart. Vitals: ED Triage Vitals [04/06/224] BP: 111/80 Heart Rate: 97 Resp: 18 Temp: 37.2 ??C (98.9 ??F) Temp src: n/a SpO2: 96 % O2 Device: O2 Flow Rate (L/min): n/a Physical Exam Constitutional: Appearance: Normal appearance. He is ill-appearing. HENT: Head: Normocephalic and atraumatic. Eyes: Extraocular Movements: Extraocular movements intact. Cardiovascular: Rate and Rhythm: Normal rate and regular rhythm. Pulses: Normal pulses. Heart sounds: Normal heart sounds. Pulmonary: Effort: Pulmonary effort is normal. Breath sounds: Normal breath sounds. Abdominal: General: There is no distension. Palpations: Abdomen is soft. Tenderness: There is no abdominal tenderness. There is no guarding. Musculoskeletal: General: No swelling or deformity. Cervical back: Neck supple. Right lower leg: No edema. Left lower leg: No edema. Skin: General: Skin is warm and dry. Coloration: Skin is not jaundiced. Findings: Rash (faint erythematous geometric patches in areas of previous EKG stickers) present. Neurological: Mental Status: He is disoriented. Motor: Weakness (3-4/5 strength RUE and RLE, 5/5 str LUE and LLE) present. Coordination: Coordination abnormal (shaky R leg [id number] test, normal coordination for L leg). Comments: Not oriented to date. Subtle R Chvostek's sign. Patient reports right-sided feels weirdto sensation for bilateral upper and lower extremities, initially denied numbness but later endorsednumbness when re-evaluated later Psychiatric: Mood and Affect: Mood normal. Thought Content: Thought content normal. ED Course: I have reviewed labs and imaging, images and available reports, and they are significant for: CBC: mild anemia (Hb 12.5, HCT 36.6), no leukocytosis or left shift BMP: low Ca (7.7), low Mg (0.63), increased phosphorus (5.9) Ionized Ca: low Ca (0.99) Venous pH: 7.35, wnl I reviewed the EKG tracing: Rhythm: normal sinus rhythm Rate: 76 bpm Relevant findings: Qtc wnl (396) CT head without contrast: pending CBC: Recent Labs 04/06/221919 WBC 8.3 HGB 12.5* HCT 36.6* PLATELET 274 NEUTROABS 5.09 Chemistry: Recent Labs 04/06/22191902/21/22 1536 NA 142 136 K 4.1 4.1 CL 102 101 CO2 29 29 BUN 8* 11 CREATININE 0.84 0.96 GLUCOSE 102 103 ANIONGAP 11 6 Recent Labs 04/06/22191902/21/22 1536 CALCIUM 7.7* 11.3* MAGNESIUM 0.63* -- PHOS 5.9* -- VBG (Venous Blood Gas): Recent Labs 04/06/22 2110 PHVEN 7.35 No orders to display Procedures None Assessment and Plan: 26 y.o. male with post-surgical symptomatic hypocalcemia s/p recent parathyroidectomy on 03/26/22 for MEN1 primary hyperparathyroidism. Patient presented with numbness and tingling. Hypocalcemia was confirmed on labwork. In the ED, patient is due to receive IV calcium gluconate 1g and IV magnesium 1g f or hypocalcemia and hypomagnesia treatment, which has helped improve symptoms in his previous recenthospitalizations. CT head was obtained to evaluate for intracranial etiology for right-sided weakness and increased confusion, present for the past week, per patient, who reports that he did not receive any imaging for this. Patient was signed out to another ED resident, Vicenta Fonseca, at 10:02pm. Roberta Izaguirre MD Resident 04/06/222203 Associated attestation - Kuldeep Rooney MD - 04/06/2022 10:51 PM EDT ED ATTENDING ATTESTATION The patient was seen in conjunction with the resident physician. I have independently performed the farias portions of the history and physical exam. I have personally reviewed nursing notes, vital signs,and diagnostic studies including labs, imaging studies and EKGs. I have discussed the details of the case with the resident and agree with the assessment and plan as described in the resident's note. Ongoing hypoCa s/p parathyroidectomy. COnsult endocrine. We will also consult surgery. Did this case involve critical care? No documented in this encounter Miscellaneous Notes Care Management Discharge - Precious Paez RN - 04/15/2022 1:29 PM EDT CARE MANAGEMENT FINAL DISCHARGE NOTE Chart reviewed, care reviewed with primary team and at interdisciplinary rounds. Patient is medically ready for discharge to home. Needs for Transition of Care: NA Plan for discharge is: Outpatient Agency/Support Group Needs: None Agency Referrals & Follow-up Care: NA Transportation: family or friend will provide Wheelchair van/Ambulance? No Functional status prior to admission: Independent Home Environment: Others in the home: sibling(s). Current Living Arrangements: home/apartment/condo. Accessibility Concerns:8 steps into the home. Lives on the 3rd floor. Has an elevator. No concerns.. Current Functional Ability: Independent DME used at home: none DME Needed at Discharge: Patient is insured through: Primary Insurance: [place] Payor[place] / Plan: [place] PRIMARY CARE [place] / Product Type: *No Product type* / Secondary Insurance: N/A Prescription Coverage: Yes This plan was formulated with input from patient and team. All are in agreement with plan. Precious Paez [facility] [phone] Plan of Care - Jodi Little RN - 04/14/2022 2:42 AM EDT OUTCOME EVALUATION NOTE: OUTCOME SUMMARY: Pt remains free from falls/injuries this shift, bed in low position. Pt c/o back pain- scheduled Tylenol administered. Pt additionally c/o chest pain, dizziness & jaw pain overnight- MD notified, VSS. STAT Troponin x2 & EKG ordered & obtained, see results review. PRN 1mg PO Ativan additionally administered. Sleeping between care. Call ennis maintained within reach at all times, pt encouraged to use in order to make needs known. Will continue to monitor. PLAN MOVING FORWARD: Continue to monitor Monitor labs INDIVIDUALIZED FALL PREVENTION INTERVENTIONS: Patient-specific fall risk factors per assessment: [current deficits]: IV sites Assistance [level of assistance required for transfers and ambulation]: Indep Supervision [direct monitoring required during toileting and ADLs]: Indep Surveillance [continuous indirect monitoring]: Room near unit station, purposeful rounding Patient-specific fall prevention interventions for sensory deficits provided, if applicable: NA CARE PLAN GOAL OUTCOME EVALUATION: Plan of Care - Lion Gaona RN - 04/13/2022 4:23 PM EDT OUTCOME EVALUATION NOTE: OUTCOME SUMMARY: Patient A&Ox4, VSS and reported chronic back pain this morning. Given teriparatide injection this morning, and pt reported worsening back pain, chest tightness, and facial flushing ~ 2 hours post injection with anxiety. Given PRN Flexeril and Toradol with good effect. No acute changes, will continue to monitor. PLAN MOVING FORWARD: D/c tomorrow? INDIVIDUALIZED FALL PREVENTION INTERVENTIONS: Patient-specific fall risk factors per assessment: [current deficits]: IV sites, generalized weakness Assistance [level of assistance required for transfers and ambulation]: IND Supervision [direct monitoring required during toileting and ADLs]: IND Surveillance [continuous indirect monitoring]: no bello Plan of Care - Jodi Little RN - 04/13/2022 6:04 AM EDT OUTCOME EVALUATION NOTE: OUTCOME SUMMARY: Pt remains free from falls/injuries this shift, bed in low position. PRN Flexeril administered for muscle spasms per pt request. Sleeping between care. Call ennis maintained within reach at all times, pt encouraged to use in order to make needs known. Will continue to monitor. PLAN MOVING FORWARD: Continue to monitor Monitor labs INDIVIDUALIZED FALL PREVENTION INTERVENTIONS: Patient-specific fall risk factors per assessment: [current deficits]: Generalized weakness, IV sites Assistance [level of assistance required for transfers and ambulation]: Independent Supervision [direct monitoring required during toileting and ADLs]: Eyes on Surveillance [continuous indirect monitoring]: Room near unit station, purposeful rounding Patient-specific fall prevention interventions for sensory deficits provided, if applicable: NA CARE PLAN GOAL OUTCOME EVALUATION: Plan of Care - Lion Gaona RN - 04/12/2022 5:23 PM EDT OUTCOME EVALUATION NOTE: OUTCOME SUMMARY: Patient A&Ox4, VSS, and continues to report back pain. Heating pack applied with good effect this morning. Pt supervised when self administering his teriparatide injection. This afternoon, pt reported chest pain, developed small rash on R forearm where old PIV site was, had facial flushing, and endorsed 8/10 back pain. VSS throughout and EKG showed NSR, pt visually anxious. PRN Benadryl and Tylenol given with little effect. PRN Ativan and Flexeril later given with good effect. Hydrocortisone applied to R forearm rash. Ambulating around unit independently this evening. No other changes, will continue to monitor. PLAN MOVING FORWARD: Continue to monitor labs (Phos and Ca), VS, pain control INDIVIDUALIZED FALL PREVENTION INTERVENTIONS: Patient-specific fall risk factors per assessment: [current deficits]: IV sites, tele, generalized weakness, back pain Assistance [level of assistance required for transfers and ambulation]: IND Supervision [direct monitoring required during toileting and ADLs]: IND Surveillance [continuous indirect monitoring]: masimo, tele, purposeful roudning Plan of Care - Jeovany Zambrano RN - 04/11/2022 3:25 PM EDT OUTCOME EVALUATION NOTE: OUTCOME SUMMARY: Pedro Pablo Cortes is an alert and oriented x4 26-year-old male who was admitted with muscle stiffness, twitching r/t low calcium, low magnesium, and low phosphorous. Patient also had a parathyroidectomy (03/26/2022) and took his first dose of Teriparatide 20mcg subcutaneous injection today. Patient had skin reaction with 2 red, annular nickel-sized lesion near the injection site. 25mg of Benadryl was administered. Patient is currently on telemetry. During the morning before his first dose of Teriparatide, the patient was complaining of chest pain. MD was informed and and EKG was ordered that show sinus arrhythmia. Patient was evaluated by the physician. Vital signs have been stale. Will continue to [facility]. PLAN MOVING FORWARD: Continue to monitor for adverse reactions with the new medication (Teriparatide) Monitor calcium levels (8.3): Continue with Tums INDIVIDUALIZED FALL PREVENTION INTERVENTIONS: Patient-specific fall risk factors per assessment: [current deficits]: Teriparatide can cause hypotension. Patient was made aware of this side effect. Assistance [level of assistance required for transfers and ambulation]: Independent Supervision [direct monitoring required during toileting and ADLs]: Independent Surveillance [continuous indirect monitoring]: Intentional rounding. Patient calls appropriately as needed. Patient-specific fall prevention interventions for sensory deficits provided, if applicable: [X] N/A Care Management - Precious Paez RN - 04/11/2022 1:29 PM EDT OFFICE OF CARE MANAGEMENT PROGRESS NOTE LOS: Hospital Day 5 days Chart reviewed, care reviewed with primary team and at interdisciplinary rounds. Patient continues to meet inpatient level of care related to: Hypocalcemia Decision Maker: Self Functional status prior to admission: Independent Home Environment: Others in the home: sibling(s). Current Living Arrangements: home/apartment/condo. Accessibility Concerns: 8 steps into the home. Lives on the 3rd floor. Has an elevator. No concerns.. Current Functional Ability: Independent DME used at home: none DME Needed at Discharge: None Patient is insured through: Primary Insurance: [place] / Plan[place] PRIMARY CARE [place] / Product Type: *No Product type* / Secondary Insurance: N/A Last Physical Therapy Recommendation: with Last Occupational Therapy Recommendation: with Plan for discharge is: Outpatient Agency/Support Group Needs: None Agency Referrals: Not Applicable Transportation: family or friend will provide Barriers to discharge: None Plan going forward: Care Management will continue to follow and assist with discharge planning and coordination of care as indicated. Anticipated Date of Discharge: 04/12/2022 Precious Paez [facility] [phone] Plan of Care - Vicenta Joel RN - 04/10/2022 7:35 PM EDT OUTCOME EVALUATION NOTE: OUTCOME SUMMARY: AxOx4. VSS on room air. C/o pain to back and right lower leg.Tylenol given x1 w/ good effect. Heating pad used with good effect as well. Calcium resulting at 8.7 at 1030 check and 9.2 at 1800 check. Frequency of calcium checks changed to 2x daily. IV magnesium given this evening. Ambulating around unit multiple times. Up for shower independently. Telemetry continues. PRN ativan given x2. Good PO intake. Pt reports adequate UOP. Will continue to monitor and page with any changes. PLAN MOVING FORWARD: Monitor labs Encourage mobility. Pain management. Await medication on order (per pharmacy it will arrive tomorrow 04/11). INDIVIDUALIZED FALL PREVENTION INTERVENTIONS: Patient-specific fall risk factors per assessment: [current deficits]: Pain Assistance [level of assistance required for transfers and ambulation]: IND Supervision [direct monitoring required during toileting and ADLs]: IND Surveillance [continuous indirect monitoring]: Hourly rounding, room near unit station, call ennis within reach. Patient-specific fall prevention interventions for sensory deficits provided, if applicable: [X] N/A CARE PLAN GOAL OUTCOME EVALUATION: Patient Refusal of Care - Vicenta Joel RN - 04/10/2022 9:05 AM EDT Patient refusing to wear Masimo. The reason pt gave for this refusal was I have a media monitor. Nursing actions taken during this shift to address patient???s refusal included Education about importance of care Plan to address patient???s refusal include Modify plan of care to frequent spot checks Plan of Care - Radha London RN - 04/09/2022 2:34 AM EDT OUTCOME EVALUATION NOTE: OUTCOME SUMMARY: Pt admitted 04/06/22 with muscle stiffness and twitching r/t electrolyte imbalance from MEN-1 associated primary hyperparathyroidism. Pt stable overnight, VSS. IV calcium gluconate infusing as per MD orders. Supplemental IV magnesium sulfate also given x 1. All other po meds given as o rdered. Blood drawn q 4 hours as ordered. See results review for details. Pt did report back pain - requested and received prn tylenol with good effect. Will continue to monitor and will inform MD of any changes. PLAN MOVING FORWARD: Closely monitor VS, labs, assessments. Medicate as needed and as ordered. Electrolyte replacement as per MD order. Q 4 hour lab draws as ordered. Inform MD of any changes. INDIVIDUALIZED FALL PREVENTION INTERVENTIONS: Patient-specific fall risk factors per assessment: [current deficits]: none, pt up independently Assistance [level of assistance required for transfers and ambulation]: none, pt up independently for transfers and ambulation Supervision [direct monitoring required during toileting and ADLs]: independent with toileting and ADLs Surveillance [continuous indirect monitoring]: hourly rounding Patient-specific fall prevention interventions for sensory deficits provided, if applicable: [X] Yes, call ennis within easy reach, side rails up x 2, nonslip socks on if OOB CPG GOAL OUTCOME EVALUATION: Plan of Care - Radha London RN - 04/08/2022 3:55 AM EDT OUTCOME EVALUATION NOTE: OUTCOME SUMMARY: Pt admitted 04/06/22 with electrolyte imbalance, numbness and tingling in bilateralhands in the setting of recent parathyroidectomy. Pt continues to endorse numbness and tingling in bilateral fingers. Denies pain. Pt has been stable overnight, VSS. BP soft in 90's (baseline per pt), pt asymptomatic. Await AM labs. Will inform MD of any changes. PLAN MOVING FORWARD: Monitor VS, labs, assessments. Medicate as needed and as ordered. Await AM labs, replace lytes as needed and as ordered. Inform MD of any changes. INDIVIDUALIZED FALL PREVENTION INTERVENTIONS: Patient-specific fall risk factors per assessment: [current deficits]: weakness, fatigue Assistance [level of assistance required for transfers and ambulation]: independent with transfers and ambulation Supervision [direct monitoring required during toileting and ADLs]: independent with toileting, 1 minimal assist with ADLs Surveillance [continuous indirect monitoring]: hourly rounding Patient-specific fall prevention interventions for sensory deficits provided, if applicable: [X] Yes, call ennis within easy reach, side rails up x 2, nonslip socks on if OOB, PT consult if needed CPG GOAL OUTCOME EVALUATION: Consult Note - Shira Allen [facility] - 04/07/2022 6:00 PM EDT TelePharmacy Home Medication List Update for Medication Reconciliation 04/07/22 6:00 PM Pedro Pablo Cortes 1995 Allergies Allergen Reactions ??? Codeine Tightening of chest, wheezing ??? Morphine Other (See Comments) unknown Pt reports that he's not allergic to morphine and he doesn't know why this got added. ??? Person Interviewed: patient ??? Quality of Interview/accuracy of medication list: good ??? Sources used to compile medication list: [x] Epic medication list [x] SureScripts [] PCP/Specialist list [] Retail pharmacy [x] Patient list [] MAR [x] Other- PDMP ??? Changes made to home medication list: o Additions: - Calcitriol 0.5 mcg po bid - Calcium carbonate 2000 mg po qid - Lorazepam 1 mg po tid prn (see additional notes) - MgCl 71.5 mg/Ca carbonate 119 mg tabs, 2 tabs po tid - Senna 8.6 mg 2 tabs po qhs o Deletions: - Clonidine - Doxepin - Escitalopram - Famotidine - Fluoxetine - Lidocaine patches - Omeprazole - Quetiapine - Senna/docusate o Changes: - Docusate 100 mg po bid - Gabapentin 600 mg po tid - Methadone 110 mg po qam ??? Additional Notes: o Methadone dose unable to be verified by inpt pharmacist due to clinic being closed. o Pt reports that he takes lorazepam 1 mg po qid and prn, SureScripts indicates pt supposed to be taking tid prn, PDMP supports 1 tab po tid prn. ??? Recommended changes: None. The home medication list is now updated to the best of my knowledge and is ready to be reconciled bythe provider. Please contact the TelePharmacy Medication Reconciliation Pharmacist at for any questions. Shira Allen RPH Plan of Care - Roxanne Layne RN - 04/07/2022 4:50 PM EDT OUTCOME EVALUATION NOTE: OUTCOME SUMMARY: Pt alert and oriented upon arrival from ED. Pt does not report feeling tingling in feet, face, hands, or mouth. Pt denies reports of pain. VSS, pt on RA. Pt oriented to unit. PRN ativan given for anxiety. NAD noted. Lab work being monitored. PLAN MOVING FORWARD: Monitor labs Monitor Neuro Endo consult DC planning INDIVIDUALIZED FALL PREVENTION INTERVENTIONS: Patient-specific fall risk factors per assessment: [current deficits]: Tingling, weakness Assistance [level of assistance required for transfers and ambulation]: X 1 stand by Supervision [direct monitoring required during toileting and ADLs]: Stand by assist Surveillance [continuous indirect monitoring]: No, bertrand rounding, room near unit station Patient-specific fall prevention interventions for sensory deficits provided, if applicable: [X] N/A CARE PLAN GOAL OUTCOME EVALUATION: Consult Note - Jose White DO - 04/07/2022 12:02 PM EDT Images from the original note were not included. Endocrinology Consult Note Name: Pedro Pablo Cortes : 1995 Date: 04/07/22 Reason for Consult: Hypocalcemia HPI: Per history obtained from chart review the patient has a history of MEN 1 diagnosed at age 18. This was found due to genetic testing done because his father also had MEN 1 and from complications secondary to MEN1 related tumors. He also has a paternal aunt who in her 30s because of thyroid cancer. The patient presented to endocrine surgery here after being found to be hypercalcemic with a high PTH. On 03/26/2022 he underwent subtotal parathyroidectomy. After this, he presented to an outside hospital with symptoms of hypocalcemia. He was admitted there5 days and discharged yesterday. After going home he felt his symptoms of tingling in his face, hands and feet worsen so he came back to the hospital. He tells me that when he was home he was continuedon the regimen from the outside hospital which was calcitriol 1 mcg twice daily, calcium carbonate 2g 4 times daily. He does feel better after he takes a dose of the calcium carbonate but then his symptoms return. Currently he is feeling better though still has some tingling in his fingers and toes. In the ED last night calcium 7.7. He received IV calcium gluconate and IV magnesium replacement. He was resumed on his home p.o. regimen as well. Past Medical History: Diagnosis Date ??? Anxiety ??? History of drug abuse ??? Hypercholesteremia ??? PTSD (post-traumatic stress disorder) Past Surgical History: Procedure Laterality Date ??? PRG EMG, LARYNX N/A 03/26/2022 FACIAL NERVE MONITORING, SETUP LARYNGEAL (WRVU 1.57) performed by Joyce Nelson MD at [facility] ??? PRO EXPLORE PARATHYROID GLANDS N/A 03/26/2022 PARATHYROIDECTOMY OR EXPLORATION OF PARATHYROID(S) (WRVU 15.6) performed by Joyce Nelson MD at [facility] No family history on file. Social History Socioeconomic History ??? Marital status: Single Spouse name: Not on file ??? Number of children: Not on file ??? Years of education: Not on file ??? Highest education level: Not on file Occupational History ??? Not on file Tobacco Use ??? Smoking status: Never Smoker ??? Smokeless tobacco: Never Used Substance and Sexual Activity ??? Alcohol use: Not on file ??? Drug use: Not on file ??? Sexual activity: Not on file Other Topics Concern ??? Not on file Social History Narrative ??? Not on file Social Determinants of Health Financial Resource Strain: Not on file Food Insecurity: Not on file Transportation Needs: Not on file Physical Activity: Not on file Housing Stability: Not on file Current Medications: Scheduled Meds: ??? sodium chloride 0.9 % (flush) 5 mL Intravenous BID ??? enoxaparin 40 mg Subcutaneous Nightly ??? busPIRone 20 mg Oral TID ??? cloNIDine 0.1 mg Oral Daily ??? docusate sodium 100 mg Oral Daily ??? famotidine 20 mg Oral BID ??? FLUoxetine 60 mg Oral Daily ??? methadone (Methadose) oral liquid 110 mg Oral Daily ??? magnesium oxide 400 mg Oral BID ??? gabapentin 600 mg Oral TID ??? senna-docusate 2 tablet Oral BID ??? calciTRIoL 1 mcg Oral BID ??? calcium carbonate 2,000 mg Oral 4 Times Daily Continuous Infusions: PRN Meds:.sodium chloride 0.9 % (flush), lidocaine Allergies Allergen Reactions ??? Codeine Tightening of chest, wheezing ??? Morphine Other (See Comments) unknown Vitals BP 101/60 Pulse 74 Temp 37.2 ??C (98.9 ??F) Resp 13 Wt 96 kg (211 lb 10.3 oz) SpO2 98% BMI 32.26 kg/m?? Physical Exam: Physical Exam Constitutional: General: He is not in acute distress. Appearance: He is not ill-appearing or toxic-appearing. HENT: Head: Comments: Negative Chvostek Neurological: Mental Status: He is alert. Psychiatric: Behavior: Behavior normal. Radiology: 03/13/2022 Narrative & Impression EXAMINATION: MRI PITUITARY WWO CONTRAST ?? CLINICAL HISTORY: Patient with MEN-1 (not followed); reports headaches, vision changes, has elevated prolactin Patient with MEN-1 (not followed); reports headaches, vision changes, has elevated prolactin ? TECHNIQUE: MRI of the brain was performed before and following the intravenous administration of 19 cc Dotarem. ?? COMPARISON: None ?? FINDINGS: The pituitary gland is normal in appearance with normal posterior pituitary T1 hyperintensity. There is normal uniform enhancement of the pituitary gland. The cavernous sinuses are normal. The optic chiasm, prechiasmatic optic nerves and visualized post chiasmatic optic pathways are normal. Unremarkable appearance of the infundibulum in the hypothalamus. The visualized cerebral parenchyma is unremarkable. The ventricles are normal in size and configuration. Major intracranial flow voids are patent. The visualized paranasal sinuses are clear. ?? IMPRESSION Normal MRI of the pituitary gland. 03/15/2022 Narrative & Impression EXAMINATION: CT ABDOMEN AND PELVIS W CONTRAST ?? 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 TECHNIQUE: Helical CT of the abdomen was performed following the intravenous administration of contrast. Administered 115.0 ml of OMNIPAQUE 350.00 mg/ml. Oral contrast was administered. Arterial and portal venous phase images were obtained. Although an abdomen and pelvis exam was ordered and protocol for, only images of the abdomen were obtained. The patient will return for additional images of the pelvis. ?? COMPARISON: None ?? FINDINGS: ?? Lower chest: Normal. ?? Liver: Normal size. No enhancing lesions. A 1.7 cm region of low attenuation is seen adjacent to the falciform ligament, felt to be focal fatty change or focal hypoperfusion. It is not a suspicious lesion. Bile ducts: Nondilated. Gallbladder: No calcified gallstones. Normal caliber wall. Pancreas: Normal attenuation without ductal dilatation. Spleen: Normal. Adrenals: Normal. Kidneys: 11 mm cyst upper pole LEFT kidney. No renal masses. No collecting system obstruction bilaterally. Vasculature: No aneurysm. Lymph Nodes: No enlarged lymph nodes. Bowel: Nondilated, no wall thickening. Peritoneum and mesentery: No ascites, free air, or loculated fluid collection. No mesenteric inflammation. Abdominal wall: Normal. ?? Osseous structures: No suspicious lesions. ?? IMPRESSION ?? Normal abdominal exam. As described above, due to technical error, the pelvis was not imaged. The patient will return for additional images of the pelvis. Labs: Latest Reference Range & Units 04/06/22 19:20 04/06/22 21:10 04/07/22 05:15 Creatinine 0.80 - 1.50 mg/dL 0.84 0.77 (L) Calcium 8.5 - 10.5 mg/dL 7.7 (L) 7.2 (L) ICa Whole Blood 1.15 - 1.33 mmol/L 0.99 (L) Magnesium 0.69 - 1.07 mmol/L 0.63 (L) 0.76 Phosphorus 2.5 - 4.5 mg/dL 5.9 (H) 7.0 (H) Albumin 3.2 - 5.2 g/dL 3.5 PTH 15 - 65 pg/mL 6 (L) (L): Data is abnormally low (H): Data is abnormally high Latest Reference Range & Units 02/21/22 15:36 Chromogranin A <93 ng/mL 81 Prolactin 4.0 - 15.2 ng/mL 17.8 (H) Gastrin pg/mL 146 (H) (H): Data is abnormally high Assessment and plan: Patient is a 26-year-old male with M EN type I. This was found because his father from MEN1 related tumors and he also had a paternal aunt who at a young age from thyroid cancer. Patient was diagnosed at age 18 but only recently had medical follow-up at which time he was found to be hypercalcemic. He was evaluated by endocrine surgery who diagnosed hyperparathyroidism and he underwent a subtotal parathyroidectomy on 03/26/2022. Since that time he has had difficulty maintaining adequate calcium levels and he was just hospitalized for 5 days in outside hospital. He was discharged yesterday but presented to our hospital today with symptoms of hypocalcemia. His regimen at the time of discharge yesterday was calcitriol 1 mcg twice daily and calcium carbonate 2 g 4 times daily. Last night he received IV repletion in the ED and was resumed on the PO regimen.At the outside hospital he was getting Slow-Mag TID. Here we will give magnesium oxide 400 mg twice daily to maintain magnesium in the normal range. Our goal is a serum calcium close to the lower limitof normal. Additionally, prior to his parathyroid surgery, additional labs and imaging were done to evaluate for other MEN1 related tumors. These included an elevated gastrin level, mildly elevated prolactin and normal chromogranin A. He had an MRI of his pituitary that did not reveal any abnormalities and he had a CT abdomen that also did not show any evidence of neuroendocrine tumors. He has not yet established care with endocrinology but has a visit scheduled with our clinic in the near future (appears to be scheduled on both 04/11/22 and 05/14/22, can keep whichever is first after his discharge). -Continue calcitriol 1 mcg twice daily -Continue calcium carbonate 2 g four times daily for now. This is 3200 mg of elemental calcium. -Start magnesium oxide 400 mg twice daily -check calcium BID for now -He will need surveillance in outpatient endocrine clinic for me in 1 related tumors. Thank you for allowing us to participate in the care of this patient. Patient was discussed with Dr. Garces. Jose White, Endocrinology Fellow Pager: [phone] Associated attestation - Jamarcus Garces MD - 04/07/2022 1:56 PM EDT Patient seen and examined with Dr. White in the ED. Physical Exam: General: NAD, awake, alert HEENT: no goiter, [place] sign negative CV: no lower extremity edema Lungs: no respiratory distress, bilateral chest expansion Abdomen: soft, non-tender, non-distended Skin: warm to touch, no jaundice Agree with plan and assessment as outlined in Dr. White's note. Resume calcitriol 1 mcg BID and calcium carbonate 2 grams TID. Start oral magnesium supplementation. Trend calcium BID - goal calcium8-8.5 in this patient with hypoparathyroidism. Has endocrine follow up scheduled. Jamarcus Garces MD Plant Physiology Teachersubstance abuse prevention coordinator Endocrinology Section [facility] Initial Assessments - Kimberli Gamble, ENVIRONMENTAL SERVICES ATTENDANT - 04/07/2022 8:25 AM EDT Office of Care Management Initial Assessment Medical record reviewed. Plan of care and patient status discussed with direct care Registered Nurseand/or Care Team in multidisciplinary rounds. Reason for Hospitalization: Post OP, presents to the ED reporting muscle stiffness, twitches as wellas tingling in hands, feet, face, and around his mouth. ?? Last COVID test: Pending. Present on Admission: ??? Hypocalcemia Hospitalizations Within the Past 30 Days: unable to assess Patient receiving hospital care under Inpatient status. Admission order reviewed. Health/Prescription Coverage: Primary Insurance: [place] Payor: [place] / Plan: [place] PRIMARY CARE PLUS / Product Type: *No Product type* / Secondary Insurance: N/A Secondary Insurance? (Only Medicare A&B): No ; Why not?: Has Medicaid. Prescription Coverage: Yes Preferred Pharmacy: [id number] [address] Advance Care Planning: Attempt Cardiopulmonary Resuscitation - Inpatient <no information> -Advanced Directive: No, declines Current Functional Ability: Independent Functional Status Prior to Admission: Independent Home Environment: Others in the home: sibling(s). Current Living Arrangements: home/apartment/condo. Accessibility Concerns:8 steps into the home. Lives on the 3rd floor. Has an elevator. No concerns.. Current DME: none [address] [facility] [id number] Social & Family Supports: All names listed below confirmed with patient as current and correct Extended Emergency Contact Information Primary Emergency Contact: Annabella Cortes Mobile Relation: Mother Current Care Provided by: self Transportation: no concerns Transportation Anticipated: family or friend will provide (Mother-Annabella Cortes will cook pickled meat.) Assessment: Patient with no apparent RNCM/SW needs at this time. No housing, transportation, insurance, resources concerns identified at this time. Supports in place to achieve a safe post-hospital transition. No identified barriers to accessing necessary care and/or follow-up after discharge. Plan: Patient to d/c to home via private vehicle when medically ready. Registered Nurse Clinical Tech / Director Of Partnerships will continue to follow patient???s progress and remain available if situation changes for coordination of care, psychosocial support and/or discharge planning. Office of Care Management Kimberli Gamble [facility] Office of Case Management-Director Of Partnerships Clinical Director Of Partnerships ED CDU SDP Pager [phone] Consult Note - Jaky Arellano MD - 04/06/2022 11:37 PM EDT [facility] Department of Surgery Inpatient Consult Note Consultation Requested by: Oscar Zazueta MD History of Present Illness: Pedro Pablo Cortes is a 26 y.o. male with a past medical history significantfor MEN 1 primary hyperparathyroidism, anxiety, history of polysubstance abuse, hypercholesterolemia, PTSD who underwent a subtotal parathyroidectomy on 03/26/2022 who is representing with symptoms of h ypocalcemia. He initially felt fine the day after surgery however then next day on postop day 2 he started to feel numbness and tingling in his hands and feet. This progressed to muscle twitching and although he increased his calcium intake this appeared to worsen. He ultimately presented to [facility] where his muscleslocked up. He states that since this episode he has had mental slowing as well as increased confusion. Ultimately he was discharged earlier today however still was symptomatic and was also told his calcium was still low. He had continued symptoms at home and ultimately presented to [facility] for further evaluation and care. Currently he is still having some numbness and tingling though he states that thisis better when he is receiving the IV calcium. Overall he has not slept very much since surgery and is extremely fatigued. He states he has been able to eat a regular diet and has normal bowel function. He has been on the regimen recommended by endocrine with calcitriol twice daily as well as Tums 2g 4 times daily. PMH/PSH: Past Medical History: Diagnosis Date ??? Anxiety ??? History of drug abuse ??? Hypercholesteremia ??? PTSD (post-traumatic stress disorder) Past Surgical History: Procedure Laterality Date ??? PRG EMG, LARYNX N/A 03/26/2022 FACIAL NERVE MONITORING, SETUP LARYNGEAL (WRVU 1.57) performed by Joyce Nelson MD at [facility] ??? PRO EXPLORE PARATHYROID GLANDS N/A 03/26/2022 PARATHYROIDECTOMY OR EXPLORATION OF PARATHYROID(S) (WRVU 15.6) performed by Joyce Nelson MD at [facility] Medications No current facility-administered medications on file prior to encounter. Current Outpatient Medications on File Prior to Encounter Medication Sig Dispense Refill ??? busPIRone (Buspar) 10 mg Tablet Take 2 tablets by mouth 3 times daily. ??? cloNIDine (Catapres) 0.1 mg Tablet 0.1 mg. ??? docusate sodium (Colace) 100 mg Capsule [...] Tablet Take 100 mg by mouth nightly. Allergies Allergies Allergen Reactions ??? Codeine Tightening of chest, wheezing ??? Morphine Other (See Comments) unknown Family History: No family history on file. Social History: Social History Socioeconomic History ??? Marital status: Single Spouse name: Not on file ??? Number of children: Not on file ??? Years of education: Not on file ??? Highest education level: Not on file Occupational History ??? Not on file Tobacco Use ??? Smoking status: Never Smoker ??? Smokeless tobacco: Never Used Substance and Sexual Activity ??? Alcohol use: Not on file ??? Drug use: Not on file ??? Sexual activity: Not on file Other Topics Concern ??? Not on file Social History Narrative ??? Not on file Social Determinants of Health Financial Resource Strain: Not on file Food Insecurity: Not on file Transportation Needs: Not on file Physical Activity: Not on file Housing Stability: Not on file Review of Systems: As stated above, otherwise ten system review negative Physical Exam: Temp: [37.2 ??C (98.9 ??F)] Heart Rate: [74-97] Resp: [13-18] BP: (106-111)/(60-80) SpO2: [93 %-96 %] Heart Rate from SpO2: [74 bpm-78 bpm] Gen: NAD, A0x3 HEENT: MALENA, MMM, neck incision clean dry intact with no significant edema, erythema, or drainage CVS: RRR, no m/r/g Pulm: Breathing comfortably on room air GI: nontender; nondistended MSK: WWP, no edema Neuro: moving all 4 extremities spontaneously, nonfocal Data independently reviewed: Recent Results (from the past 24 hour(s)) Basic Metabolic Panel (non-fasting) Result Value Ref Range Glucose Lvl 102 65 - 199 mg/dL BUN 8 (L) 10 - 20 mg/dL Creatinine 0.84 0.80 - 1.50 mg/dL Sodium 142 135 - 145 mmol/L Potassium 4.1 3.5 - 5.0 mmol/L Chloride 102 98 - 107 mmol/L CO2 29 22 - 31 mmol/L Anion Gap 11 5 - 15 mmol/L Calcium 7.7 (L) 8.5 - 10.5 mg/dL Estimated GFR 122 >=60 mL/min/1.73 m?? Magnesium Result Value Ref Range Magnesium 0.63 (L) 0.69 - 1.07 mmol/L Phosphorus Result Value Ref Range Phosphorus 5.9 (H) 2.5 - 4.5 mg/dL Hemogram Result Value Ref Range WBC 8.3 4.0 - 9.5 x10(3)/mcL RBC 4.09 (L) 4.58 - 5.54 x10(6)/mcL Hemoglobin 12.5 (L) 13.7 - 16.5 g/dL Hematocrit 36.6 (L) 40.5 - 48.5 % MCV 89.5 82.9 - 93.1 fL MCH 30.6 27.5 - 32.1 pg MCHC 34.2 32.0 - 35.7 g/dL Platelets 274 145 - 357 x10(3)/mcL RDWSD 37.6 36.0 - 45.0 fL RDWCV 11.6 11.4 - 13.8 % MPV 10.8 7.6 - 12.9 fL nRBC % Auto 0.0 % nRBC Abs Auto 0.000 0.000 - 0.000 x10(3)/mcL Differential, Automated Result Value Ref Range Neutrophils % 61.0 % Neutr Abs (ANC) 5.09 1.70 - 6.10 x10(3)/mcL Lymphocytes % 26.7 % Lymphocytes Abs 2.2 0.9 - 3.2 x10(3)/mcL Monocytes % 9.2 % Monocyte Abs 0.8 0.3 - 0.9 x10(3)/mcL Eosinophils % 2.2 % Eosinophils Abs 0.2 0.0 - 0.4 x10(3)/mcL Basophils % 0.5 % Basophils Abs 0.0 0.0 - 0.1 x10(3)/mcL Immature Gran % 0.40 % Ana Gran Abs 0.03 0.00 - 0.04 x10(3)/mcL Gold Tube HOLD Result Value Ref Range Gold Hold Sample in lab. Calcium Ionized Whole Blood, ADAM Result Value Ref Range pH Adam 7.35 7.32 - 7.42 ICa Whole Blood 0.99 (L) 1.15 - 1.33 mmol/L Imaging: CT head 04/06/2022: IMPRESSION No acute intracranial abnormality. Impression: Pedro Pablo Cortes is a 26 y.o. male with a past medical history significant for MEN 1 primary hyperparathyroidism, anxiety, history of polysubstance abuse, hypercholesterolemia, PTSD who underwent a subtotal parathyroidectomy on 03/26/2022 now representing with symptomatic hypocalcemia. Given his continued symptoms recommend admission to medicine with endocrine recommendations and monitoring of calcium levels. Given that he had a subtotal parathyroidectomy a PTH should also be checkedas it is possible that his parathyroid is stunned or potentially not functional at all. Either way fernando jacquelin would be the same in the acute setting. Recommendation: - Admission to medicine with endocrine consult for management of hypoparathyroidism - Home medications - Check PTH - Surgical oncology will continue to follow, please page [phone] for questions or concerns This patient was discussed with Dr. Nelson over the phone. Jaky Arellano MD PGY-5 04/06/2022 Surgical oncology pager [phone] Associated attestation - Joyce Nelson MD - 04/08/2022 7:42 AM EDT I have reviewed the resident???s above note and all relevant information available in the chart. We do not yet have records from his recent hospitalization at [facility]. Appreciate endocrinology service's assistance in management of post-operative hypocalcemia. JOYCE NELSON MD Plan of Care - Jose White DO - 04/06/2022 10:19 PM EDT Paged regarding patient presenting with hypocalcemia following recent parathyroidectomy. -Recommend repletion of magnesium into normal range. -resume his regimen tonight of calcitriol 1mcg twice daily and calcium carbonate 2gm QID Jose White DO Endocrinology Fellow ED Triage - Mandi Chamorro, RN - 04/06/2022 6:12 PM EDT I had my parathyroid taken out last week. My calcium and magnesium levels have been low. I keep going to the hospital and they keep sending me home. I can feel my calcium is low. documented in this encounter Plan of Treatment Upcoming Encounters Date Type Specialty Care Team Description 04/25/2022 Laboratory Appointment Lab 04/25/2022 Office Visit General Surgery Joyce Nelson MD [facility] GENERAL SURGERY [place], [place] [address] (Wo rk) 05/14/2022 Office Visit Endocrinology Karina Montalvo MD [facility] ENDOCRINOLOGY DE PT [place], [place] [address] (Wo rk) Pending Results Name Type Priority Associated Diagnoses Date/Ti me EKG 12 Lead ECG STAT Hypocalcemia 04/11/2022 10:3 4 AM EDT Scheduled Orders Name Type Priority Associated Diagnoses Order S chedule EKG 12 Lead ECG STAT Hypocalcemia One Time for 1 Occurrences sta rting 04/12/2022 unti l 04/12/2022 Basic Metabolic Panel Lab Routine Hypocalcemia Expect ed: 04/15/2022 (non-fasting) (Approximate), Expires: 10/15/2022 Magnesium Lab Routine Hypocalcemia Expected: 04/15 (Approximate), Expires: 10/15/2022 Phosphorus Lab Routine Hypocalcemia Expected: 04/15 (Approximate), Expires: 10/15/2022 Albumin Level Lab Routine Hypocalcemia Expected: 03/18, Expires: 2022 documented as of this encounter Procedures Procedure Name Priority Date/Time Associated Diagnosis Comme nts HC PHOSPHORUS, SERUM Routine 04/15/2022 4:51 AM R esults for this EDT procedure are i n the results section. HC MAGNESIUM, SERUM Routine 04/15/2022 4:51 AM Re sults for this EDT procedure are i n the results section. HC VENIPUNCTURE Routine 04/15/2022 4:51 AM Result s for this EDT procedure are i n the results section. XR LUMBAR SPINE 2 OR Routine 04/14/2022 4:13 PM R esults for this 3 VIEWS EDT procedure are i n the results section. XR THORACIC SPINE 2 Routine 04/14/2022 4:13 PM Re sults for this VIEWS EDT procedure are i n the results section. HC MAGNESIUM, SERUM Routine 04/14/2022 1:51 PM Re sults for this EDT procedure are i n the results section. HC VENIPUNCTURE Routine 04/14/2022 1:51 PM Result s for this EDT procedure are i n the results section. HC VENIPUNCTURE Routine 04/14/2022 9:26 AM Result s for this EDT procedure are i n the results section. HC VENIPUNCTURE STAT 04/14/2022 3:17 AM Result s for this EDT procedure are i n the results section. HC PHOSPHORUS, SERUM Routine 04/14/2022 3:17 AM R esults for this EDT procedure are i n the results section. HC MAGNESIUM, SERUM Routine 04/14/2022 3:17 AM Re sults for this EDT procedure are i n the results section. BASIC METABOLIC PANEL Routine 04/14/2022 3:17 AM Results for this (NON-FASTING) EDT procedure are in the results section. HC TROPONIN T STAT 04/13/2022 11:23 Results fo r this PM EDT procedure are i n the results section. EKG 12-LEAD STAT 04/13/2022 11:13 Chest pain, Results for this PM EDT unspecified type procedure a re in the results section. HC VENIPUNCTURE Routine 04/13/2022 5:38 PM Result s for this EDT procedure are i n the results section. HC PHOSPHORUS, SERUM Routine 04/13/2022 5:22 AM R esults for this EDT procedure are i n the results section. HC MAGNESIUM, SERUM Routine 04/13/2022 5:22 AM Re sults for this EDT procedure are i n the results section. HC VENIPUNCTURE Routine 04/13/2022 5:22 AM Result s for this EDT procedure are i n the results section. PHOSPHORUS Routine 04/12/2022 4:31 PM Results f or this EDT procedure are i n the results section. HC CALCIUM, SERUM Routine 04/12/2022 4:31 PM Resu lts for this EDT procedure are i n the results section. EKG 12-LEAD Routine 04/12/2022 1:25 PM Hypocalcemia Results f or this EDT procedure are i n the results section. LAVENDER TUBE HOLD Routine 04/12/2022 5:22 AM Res ults for this EDT procedure are i n the results section. HC VITAMIN D TOTAL-25 Routine 04/12/2022 5:22 AM Results for this HYDROXY EDT procedure are i n the results section. PHOSPHORUS Routine 04/12/2022 5:22 AM Results f or this EDT procedure are i n the results section. HC MAGNESIUM, SERUM Routine 04/12/2022 5:22 AM Re sults for this EDT procedure are i n the results section. HC VENIPUNCTURE Routine 04/12/2022 5:22 AM Result s for this EDT procedure are i n the results section. HC CALCIUM, SERUM Routine 04/11/2022 6:12 PM Resu lts for this EDT procedure are i n the results section. RAPID COVID-19 PCR Routine 04/11/2022 11:14 Resul ts for this ([facility]) AM EDT procedure are in the results section. EKG 12-LEAD STAT 04/11/2022 10:34 Hypocalcemia AM EDT POCT GLUCOSE Routine 04/11/2022 10:29 Results for this AM EDT procedure are i n the results section. PHOSPHORUS Routine 04/11/2022 7:59 AM Results f or this EDT procedure are i n the results section. MAGNESIUM Routine 04/11/2022 7:59 AM Results f or this EDT procedure are i n the results section. HC VENIPUNCTURE Routine 04/11/2022 7:59 AM Result s for this EDT procedure are i n the results section. ALBUMIN LEVEL Routine 04/11/2022 7:59 AM Results for this EDT procedure are i n the results section. BASIC METABOLIC PANEL Routine 04/11/2022 7:59 AM Results for this (NON-FASTING) EDT procedure are in the results section. HC VENIPUNCTURE Routine 04/10/2022 5:23 PM Result s for this EDT procedure are i n the results section. HC VENIPUNCTURE Routine 04/10/2022 10:27 Results for this AM EDT procedure are i n the results section. HC CALCIUM, SERUM Routine 04/10/2022 4:43 AM Resu lts for this EDT procedure are i n the results section. HC VENIPUNCTURE Routine 04/10/2022 12:26 Results for this AM EDT procedure are i n the results section. HC VENIPUNCTURE Routine 04/09/2022 7:54 PM Result s for this EDT procedure are i n the results section. HC VENIPUNCTURE Routine 04/09/2022 4:25 PM Result s for this EDT procedure are i n the results section. HC VENIPUNCTURE Routine 04/09/2022 12:37 Results for this PM EDT procedure are i n the results section. HC VENIPUNCTURE Routine 04/09/2022 8:38 AM Result s for this EDT procedure are i n the results section. HC VENIPUNCTURE Routine 04/09/2022 4:39 AM Result s for this EDT procedure are i n the results section. HEMOGRAM Routine 04/09/2022 1:00 AM Results f or this EDT procedure are i n the results section. DIFFERENTIAL, Routine 04/09/2022 1:00 AM Results for this AUTOMATED EDT procedure are i n the results section. HC CBC,PLT & AUTO Routine 04/09/2022 1:00 AM DIFF EDT HC PHOSPHORUS, SERUM Routine 04/09/2022 1:00 AM R esults for this EDT procedure are i n the results section. HC MAGNESIUM, SERUM Routine 04/09/2022 1:00 AM Re sults for this EDT procedure are i n the results section. HC VENIPUNCTURE Routine 04/09/2022 1:00 AM Result s for this EDT procedure are i n the results section. BASIC METABOLIC PANEL Routine 04/09/2022 1:00 AM Results for this (NON-FASTING) EDT procedure are in the results section. HC CALCIUM, SERUM Routine 04/08/2022 7:55 PM Resu lts for this EDT procedure are i n the results section. MAGNESIUM Routine 04/08/2022 3:47 PM Results f or this EDT procedure are i n the results section. HC CALCIUM, SERUM Routine 04/08/2022 3:47 PM Resu lts for this EDT procedure are i n the results section. URINE HOLD Routine 04/08/2022 12:40 Results for this PM EDT procedure are i n the results section. HC CREATININE - NON Routine 04/08/2022 12:40 Resu lts for this BLOOD PM EDT procedure are i n the results section. HEMOGRAM Routine 04/08/2022 4:53 AM Results f or this EDT procedure are i n the results section. DIFFERENTIAL, Routine 04/08/2022 4:53 AM Results for this AUTOMATED EDT procedure are i n the results section. HC VENIPUNCTURE Routine 04/08/2022 4:53 AM EDT HC PHOSPHORUS, SERUM Routine 04/08/2022 4:53 AM R esults for this EDT procedure are i n the results section. HC MAGNESIUM, SERUM Routine 04/08/2022 4:53 AM Re sults for this EDT procedure are i n the results section. BASIC METABOLIC PANEL Routine 04/08/2022 4:53 AM Results for this (NON-FASTING) EDT procedure are in the results section. RAPID DRUG SCREEN, Routine 04/07/2022 10:05 Resul ts for this URINE (TANNER REQUEST) PM EDT procedur e are in the results section. RAPID DRUG SCREEN W/O Routine 04/07/2022 10:05 Re sults for this CONFIRMATION, URINE PM EDT procedur e are in the results section. BASIC METABOLIC PANEL Routine 04/07/2022 12:03 Re sults for this (NON-FASTING) PM EDT procedure are in the results section. HEMOGRAM Routine 04/07/2022 5:15 AM Results f or this EDT procedure are i n the results section. DIFFERENTIAL, Routine 04/07/2022 5:15 AM Results for this AUTOMATED EDT procedure are i n the results section. HC CBC,PLT & AUTO Routine 04/07/2022 5:15 AM DIFF EDT HC PHOSPHORUS, SERUM Routine 04/07/2022 5:15 AM R esults for this EDT procedure are i n the results section. HC MAGNESIUM, SERUM Routine 04/07/2022 5:15 AM Re sults for this EDT procedure are i n the results section. HEPATIC FUNCTION Routine 04/07/2022 5:15 AM Resul ts for this PANEL EDT procedure are i n the results section. BASIC METABOLIC PANEL Routine 04/07/2022 5:15 AM Results for this (NON-FASTING) EDT procedure are in the results section. CT HEAD WO CONTRAST STAT 04/06/2022 9:45 PM Re sults for this (GENERIC) EDT procedure are i n the results section. HC PH DETERMINATION, STAT 04/06/2022 9:10 PM R esults for this ARTERIAL EDT procedure are i n the results section. EKG 12-LEAD STAT 04/06/2022 7:52 PM Results f or this EDT procedure are i n the results section. PTH STAT 04/06/2022 7:20 PM Results f or this EDT procedure are i n the results section. HEMOGRAM STAT 04/06/2022 7:20 PM Results f or this EDT procedure are i n the results section. DIFFERENTIAL, STAT 04/06/2022 7:20 PM Results for this AUTOMATED EDT procedure are i n the results section. GOLD TUBE HOLD STAT 04/06/2022 7:20 PM Results for this EDT procedure are i n the results section. VITAMIN D, 25-HYDROXY STAT 04/06/2022 7:20 PM Results for this EDT procedure are i n the results section. HC CBC,PLT & AUTO STAT 04/06/2022 7:20 PM DIFF EDT HC PHOSPHORUS, SERUM STAT 04/06/2022 7:20 PM R esults for this EDT procedure are i n the results section. HC MAGNESIUM, SERUM STAT 04/06/2022 7:20 PM Re sults for this EDT procedure are i n the results section. BASIC METABOLIC PANEL STAT 04/06/2022 7:20 PM Results for this (NON-FASTING) EDT procedure are in the results section. documented in this encounter Results (ABNORMAL) Phosphorus (04/15/2022 4:51 AM EDT) athologist Signature Phosphorus 5.7 (H) 2.5 - 4.5 [facility] Specimen Anatomical Collection Method Collection Time Receive d Time (Source) Location / / Volume Laterality Blood 04/15/2022 4:51 AM 2 5:11 EDT AM EDT Resulting Agency Comment Spec In Lab Pauline Kincaid MD CHEMISTRY ORDERABLES Performing Organization Address City/State/[place] [address] Magnesium (04/15/2022 4:51 AM EDT) athologist Signature Magnesium 0.69 0.69 - 1.07 [facility] mmol/L [facility] Specimen Anatomical Collection Method Collection Time Receive d Time (Source) Location / / Volume Laterality Blood 04/15/2022 4:51 AM 2 5:11 EDT AM EDT Resulting Agency Comment Spec In Lab Pauline Kincaid MD CHEMISTRY ORDERABLES Performing Organization Address City/State/[place] [address] (ABNORMAL) Basic Metabolic Panel (non-fasting) (04/15/2022 4:51 AM EDT) P athologist Signature Glucose Lvl 82 65 - 199 [facility] mg/dL [facility] Comment: Diabetes: >=200 mg/dL plus symp toms BUN 14 10 - 20 mg/dL [facility] Creatinine 0.83 0.80 - 1.50 mg/dL [facility] Sodium 138 135 - 145 mmol/L [facility] Potassium 4.4 3.5 - 5.0 mmol/L [facility] Comment: Please note: ??Patients with WBC >100,00 0 may have falsely elevated Potassium levels. ??For accurate Potassium quantif ication in these patients send serum separator tube (gold top) for subsequent determinations. ??Contact the Clinical Chemistry Laboratory if there are any qu estions. Chloride 101 98 - 107 mmol/L [facility] CO2 29 22 - 31 mmol/L [facility] Anion Gap 8 5 - 15 mmol/L [facility] Calcium 8.0 (L) 8.5 - 10.5 mg/dL [facility] Estimated GFR 122 >=60 mL/min/1.73 m?? [facility] Comment: This patient's estimated GFR [...] (Source) Location / / Volume Laterality Blood 04/15/2022 4:51 AM 5:11 EDT AM EDT Resulting Agency Comment Spec In Lab Pauline Kincaid MD CHEMISTRY ORDERABLES Performing Organization Address City/State/[place] [address] XR Thoracic Spine 2 views (04/14/2022 4:13 PM EDT) Anatomical Region Laterality Modality N/A Digital Radiography Specimen (Source) Anatomical Location Collection Method / Collectio n Time Received Time / Laterality Volume Impressions 04/14/2022 4:30 PM EDT Negative exam of the thoracic spine. Thank you for letting us participate in the care of this patient. ??If you are a health care provider and have any questi ons regarding this report, please contact the number below. ??For patients who have questions please contact the health summer child caregiver that requested your imaging first. ? Electronically signed by: Monica Gleason, [facility] ([phone]), at 04/14/2022 4:30 PM Narrative 04/14/2022 4:30 PM EDT EXAMINATION: XR THORACIC SPINE 2 VIEWS CLINICAL HISTORY: h/o IVDU - acute on ch ronic back pain - mid thoracic midline w paraspinous soft tissue tenderness TECHNIQUE: 2 views of the thoracic spine COMPARISON: None FINDINGS: There is no significant abnormality of a lignment. No acute osseous abnormality is seen. No significant developmental fi ndings. Procedure Note Bharath Angel MD - 04/14/2022Formattin g of this note might be different from the original. EXAMINATION: XR THORACIC SPINE 2 VIEWS CLINICAL HISTORY: h/o IVDU - acute on ch ronic back pain - mid thoracic midline w paraspinous soft tissue tenderness TECHNIQUE: 2 views of the thoracic spine COMPARISON: None FINDINGS: There is no significant abnormality of a lignment. No acute osseous abnormality is seen. No significant developmental fi ndings. IMPRESSION Negative exam of the thoracic spine. Thank you for letting us participate in the care of this patient. If you are a health care provider and have any questi ons regarding this report, please contact the number below. For patients w ho have questions please contact the health summer child caregiver that requested your imaging first. Electronically signed by: Monica Gleason, [facility] ([phone]), at 04/14/2022 4:30 PM Jeff Dhillon MD IMG DX ORDERABLES XR Lumbar Spine 2 Or 3 Views (Generic) (04/14/2022 4:13 PM EDT) Anatomical Region Laterality Modality L-spine N/A Digital Radiography Specimen (Source) Anatomical Location Collection Method / Collectio n Time Received Time / Laterality Volume Impressions 04/14/2022 4:31 PM EDT Normal lumbar spine. Thank you for letting us participate in the care of this patient. ??If you are a health care provider and have any questi ons regarding this report, please contact the number below. ??For patients who have questions please contact the health summer child caregiver that requested your imaging first. ? Electronically signed by: Monica Gleason, [facility] ([phone]), at 04/14/2022 4:31 PM Narrative 04/14/2022 4:31 PM EDT EXAMINATION: XR LUMBAR SPINE 2 OR 3 VIEWS (GENERIC) CLINICAL HISTORY: h/o IVDU - chronic LBP - mid lumbar midline w paraspinous soft tissue tenderness TECHNIQUE: 2 views of the lumbar spine AP and later al COMPARISON: None FINDINGS: The alignment of the vertebral bodies is normal. No acute osseous abnormality is seen. No lytic or blastic lesion is iden tified. No significant developmental abnormality. Procedure Note Bharath Angel MD - 04/14/2022Formattin g of this note might be different from the original. EXAMINATION: XR LUMBAR SPINE 2 OR 3 VIEW S (GENERIC) CLINICAL HISTORY: h/o IVDU - chronic LBP - mid lumbar midline w paraspinous soft tissue tenderness TECHNIQUE: 2 views of the lumbar spine AP and later al COMPARISON: None FINDINGS: The alignment of the vertebral bodies is normal. No acute osseous abnormality is seen. No lytic or blastic lesion is iden tified. No significant developmental abnormality. IMPRESSION Normal lumbar spine. Thank you for letting us participate in the care of this patient. If you are a health care provider and have any questi ons regarding this report, please contact the number below. For patients w ho have questions please contact the health summer child caregiver that requested your imaging first. Jeff Dhillon MD IMG DX ORDERABLES Magnesium (04/14/2022 1:51 PM EDT) athologist Signature Magnesium 1.00 0.69 - 1.07 [facility] mmol/L [facility] Comment: result rechecked-SS Specimen Anatomical Collection Method Collection Time Receive d Time (Source) Location / / Volume Laterality Blood 04/14/2022 1:51 PM 2 2:20 EDT PM EDT Resulting Agency Comment Spec In Lab Jeff Dhillon MD CHEMISTRY ORDERABLES Performing Organization Address City/State/Z[place] [address] (ABNORMAL) Calcium (04/14/2022 1:51 PM EDT) athologist Signature Calcium 8.2 (L) 8.5 - 10.5 [facility] Specimen Anatomical Collection Method Collection Time Receive d Time (Source) Location / / Volume Laterality Blood 04/14/2022 1:51 PM 2 2:20 EDT PM EDT Resulting Agency Comment Spec In Lab Jeff Dhillon MD CHEMISTRY ORDERABLES Performing Organization Address City/[facility]/[place] [address] (ABNORMAL) Calcium (04/14/2022 9:26 AM EDT) P athologist Signature Calcium 7.8 (L) 8.5 - 10.5 [facility] JESSICA mg/dL [facility] Specimen Anatomical Collection Method Collection Time Receive d Time (Source) Location / / Volume Laterality Blood 04/14/2022 9:26 AM 2 9:51 EDT AM EDT Resulting Agency Comment Spec In Lab Pauline Kincaid MD CHEMISTRY ORDERABLES Performing Organization Address City/[facility]/[place] [address] (ABNORMAL) Phosphorus (04/14/2022 3:17 AM EDT) P athologist Signature Phosphorus 5.9 (H) 2.5 - 4.5 [facility] JESSICA mg/dL [facility] Specimen Anatomical Collection Method Collection Time Receive d Time (Source) Location / / Volume Laterality Blood 04/14/2022 3:17 AM 2 3:34 EDT AM EDT Resulting Agency Comment Spec In Lab Pauline Kincaid MD CHEMISTRY ORDERABLES Performing Organization Address City/[facility]/[place] [address] (ABNORMAL) Magnesium (04/14/2022 3:17 AM EDT) P athologist Signature Magnesium 0.66 (L) 0.69 - 1.07 [facility] JESSICA mmol/L [facility] Specimen Anatomical Collection Method Collection Time Receive d Time (Source) Location / / Volume Laterality Blood 04/14/2022 3:17 AM 2 3:34 EDT AM EDT Resulting Agency Comment Spec In Lab Pauline Kincaid MD CHEMISTRY ORDERABLES Performing Organization Address City/[facility]/[place] [address] (ABNORMAL) Basic Metabolic Panel (non-fasting) (04/14/2022 3:17 AM EDT) P athologist Signature Glucose Lvl 88 65 - 199 [facility] mg/dL [facility] Comment: Diabetes: >=200 mg/dL plus symp toms BUN 18 10 - 20 mg/dL [facility] Creatinine 0.88 0.80 - 1.50 mg/dL [facility] Sodium 138 135 - 145 mmol/L [facility] Potassium 4.4 3.5 - 5.0 mmol/L [facility] Comment: Please note: ??Patients with WBC >100,00 0 may have falsely elevated Potassium levels. ??For accurate Potassium quantif ication in these patients send serum separator tube (gold top) for subsequent determinations. ??Contact the Clinical Chemistry Laboratory if there are any qu estions. Chloride 100 98 - 107 mmol/L [facility] CO2 28 22 - 31 mmol/L [facility] Anion Gap 10 5 - 15 mmol/L [facility] Calcium 7.7 (L) 8.5 - 10.5 mg/dL [facility] Estimated GFR 120 >=60 mL/min/1.73 m?? [facility] Comment: This patient's estimated GFR [...] (Source) Location / / Volume Laterality Blood 04/14/2022 3:17 AM 2 3:34 EDT AM EDT Resulting Agency Comment Spec In Lab Pauline Kincaid MD CHEMISTRY ORDERABLES Performing Organization Address City/State/ZIP Code Phon e Number [address] Troponin (04/14/2022 3:17 AM EDT) P athologist Signature Troponin-T HS <6 <=22 ng/L [facility] Comment: This patient's troponin T concentration was determined using the Kevin 5th Generation troponin T assay. The 99th pe rcentile for Troponin T for this test is 14 ng/L for females, and 22 ng/L for males. According to the fourth universal defini tion of myocardial infarction, the term acute myocardial infarction should be used when there is acute myocardial injury with clinical evidence of acute m yocardial ischemia and with detection of a rise and/or fall of cardiac troponi n values with at least one value above the 99th percentile and at least one of the following: - Symptoms of myocardial ischemia; - New ischemic ECG changes; - Development of pathological Q waves; - Imaging evidence of new loss of viable myocardium or new regional wall motion abnormality in a pattern consistent with an ischemic etiology; - Identification of a coronary thrombus by angiography or autopsy (not for type 2 or 3 MIs) Serial measurement of troponin and the c hange in troponin concentration over time (delta) is crucial for the diagnosi s of acute myocardial infarction. Guidance on the interpretation of the ne w 5th Generation Troponin T values and the delta troponin value can be found in the [facility] Laboratory Test Catalog Troponin - [facility] Laboratory Test Catalog Reference: Fourth Haiku Definition of Myocardia l Infarction. Journal of the [employer] [employer] 2018;72:8374-7665 Specimen Anatomical Collection Method Collection Time Receive d Time (Source) Location / / Volume Laterality Blood 04/14/2022 3:17 AM 3:34 EDT AM EDT Resulting Agency Comment Spec In Lab Oscar Alfred MD CHEMISTRY ORDERABLES Performing Organization Address City/State/[place] [address] Troponin (04/13/2022 11:23 PM EDT) P athologist Signature Troponin-T HS <6 <=22 ng/L [facility] Comment: This patient's troponin T concentration was determined using the Kevin 5th Generation troponin T assay. The 99th pe rcentile for Troponin T for this test is 14 ng/L for females, and 22 ng/L for males. According to the fourth universal defini tion of myocardial infarction, the term acute myocardial infarction should be used when there is acute myocardial injury with clinical evidence of acute m yocardial ischemia and with detection of a rise and/or fall of cardiac troponi n values with at least one value above the 99th percentile and at least one of the following: - Symptoms of myocardial ischemia; - New ischemic ECG changes; - Development of pathological Q waves; - Imaging evidence of new loss of viable myocardium or new regional wall motion abnormality in a pattern consistent with an ischemic etiology; - Identification of a coronary thrombus by angiography or autopsy (not for type 2 or 3 MIs) Serial measurement of troponin and the c hange in troponin concentration over time (delta) is crucial for the diagnosi s of acute myocardial infarction. Guidance on the interpretation of the ne w 5th Generation Troponin T values and the delta troponin value can be found in the [facility] Laboratory Test Catalog Troponin - [facility] Test Catalog Reference: Fourth Haiku Definition of Myocardia l Infarction. Journal of the [place] [employer] 2018;72:3054-1201 Specimen Anatomical Collection Method Collection Time Receive d Time (Source) Location / / Volume Laterality Blood 04/13/2022 11:23 04/13/2022 PM EDT 11:28 PM EDT Resulting Agency Comment Spec In Lab Oscar Alfred MD CHEMISTRY ORDERABLES Performing Organization Address City/State/Z[place] [address] EKG 12 Lead (04/13/2022 11:13 PM EDT) Component Value Ref Range Test Analysis Performed Pathologis t Method Time At Signature Ventricular rate 67 BPM MUSE SYSTEM Atrial Rate 67 BPM MUSE SYSTEM P-R Interval 184 ms MUSE SYSTEM QRS Duration 90 ms MUSE SYSTEM Q-T Interval 426 ms MUSE SYSTEM QTC Calculated 450 ms MUSE SYSTEM (Bezet) Calculated P [place] 34 degrees MUSE SYSTEM Calculated R [place] 46 degrees MUSE SYSTEM Calculated T [place] 33 degrees MUSE SYSTEM INTERPRETATION Normal sinus rhythm MUSE SYSTEM Normal ECG When compared with ECG of 12-APR-2022 13:25, No significant change was found Confirmed by MD Rashad, Jean Carlos Perez ([id number]) on 04/15/2022 12:27 :54 AM Specimen Anatomical Collection Method Collection Time Receive d Time (Source) Location / / Volume Laterality 04/13/2022 11:13 04/15/2022 PM EDT 12:27 AM EDT Oscar Alfred MD ECG ORDERABLES Performing Organization Address City/State/ZIP Code Phon e Number MUSE SYSTEM (ABNORMAL) Calcium (04/13/2022 5:38 PM EDT) P athologist Signature Calcium 8.3 (L) 8.5 - 10.5 [facility] JESSICA mg/dL [facility] Specimen Anatomical Collection Method Collection Time Receive d Time (Source) Location / / Volume Laterality Blood 04/13/2022 5:38 PM 5:50 EDT PM EDT Resulting Agency Comment Spec In Lab Pauline Kincaid MD CHEMISTRY ORDERABLES Performing Organization Address City/[facility]/ZIP Code Phon e Number [address] (ABNORMAL) Phosphorus (04/13/2022 5:22 AM EDT) P athologist Signature Phosphorus 5.6 (H) 2.5 - 4.5 [facility] Specimen Anatomical Collection Method Collection Time Receive d Time (Source) Location / / Volume Laterality Blood 04/13/2022 5:22 AM 2 5:57 EDT AM EDT Resulting Agency Comment Spec In Lab Pauline Kincaid MD CHEMISTRY ORDERABLES Performing Organization Address City/[facility]/ZIP Code Phon e Number [address] Magnesium (04/13/2022 5:22 AM EDT) P athologist Signature Magnesium 0.75 0.69 - 1.07 [facility] mmol/L [facility] Specimen Anatomical Collection Method Collection Time Receive d Time (Source) Location / / Volume Laterality Blood 04/13/2022 5:22 AM 2 5:57 EDT AM EDT Resulting Agency Comment Spec In Lab Pauline Kincaid MD CHEMISTRY ORDERABLES Performing Organization Address City/State/Z[place] [address] Basic Metabolic Panel (non-fasting) (04/13/2022 5:22 AM EDT) P athologist Signature Glucose Lvl 92 65 - 199 [facility] mg/dL [facility] Comment: Diabetes: >=200 mg/dL plus symp toms BUN 17 10 - 20 mg/dL [facility] Creatinine 0.99 0.80 - 1.50 mg/dL [facility] Sodium 137 135 - 145 mmol/L [facility] Potassium 4.6 3.5 - 5.0 mmol/L [facility] Comment: Please note: ??Patients with WBC >100,00 0 may have falsely elevated Potassium levels. ??For accurate Potassium quantif ication in these patients send serum separator tube (gold top) for subsequent determinations. ??Contact the Clinical Chemistry Laboratory if there are any qu estions. Chloride 98 98 - 107 mmol/L [facility] CO2 31 22 - 31 mmol/L [facility] Anion Gap 8 5 - 15 mmol/L [facility] Calcium 8.5 8.5 - 10.5 mg/dL [facility] Comment: result rechecked-KS Estimated GFR 106 >=60 mL/min/1.73 m?? [facility] Comment: This patient's estimated GFR [...] (Source) Location / / Volume Laterality Blood 04/13/2022 5:22 AM 2 5:57 EDT AM EDT Resulting Agency Comment Spec In Lab Pauline Kincaid MD CHEMISTRY ORDERABLES Performing Organization Address City/[facility]/ZIP Code Phon e Number [address] Phosphorus (04/12/2022 4:31 PM EDT) P athologist Signature Phosphorus 4.1 2.5 - 4.5 [facility] JESSICA mg/dL [facility] Specimen Anatomical Collection Method Collection Time Receive d Time (Source) Location / / Volume Laterality Blood Venous Draw / 04/12/2022 4:31 PM 04/12/20 5:09 Unknown EDT PM EDT Resulting Agency Comment Spec In Lab Pauline Kincaid MD CHEMISTRY ORDERABLES Performing Organization Address City/[facility]/[place] [address] Calcium (04/12/2022 4:31 PM EDT) P athologist Signature Calcium 9.7 8.5 - 10.5 [facility] JESSICA mg/dL [facility] Specimen Anatomical Collection Method Collection Time Receive d Time (Source) Location / / Volume Laterality Blood 04/12/2022 4:31 PM 2 5:03 EDT PM EDT Resulting Agency Comment Spec In Lab Pauline Kincaid MD CHEMISTRY ORDERABLES Performing Organization Address City/[facility]/ZIP [facility] [place] [address] EKG 12 Lead (04/12/2022 1:25 PM EDT) Component Value Ref Range Test Analysis Performed Pathologis t Method Time At Signature Ventricular rate 88 BPM MUSE SYSTEM Atrial Rate 88 BPM MUSE SYSTEM P-R Interval 170 ms MUSE SYSTEM QRS Duration 90 ms MUSE SYSTEM Q-T Interval 340 ms MUSE SYSTEM QTC Calculated 411 ms MUSE SYSTEM (Bezet) Calculated P [place] 47 degrees MUSE SYSTEM Calculated R [place] 60 degrees MUSE SYSTEM Calculated T [place] 28 degrees MUSE SYSTEM INTERPRETATION Normal sinus rhythm MUSE SYSTEM Poor R wave progression Abnormal ECG When compared with ECG of 11-APR-2022 10:34, (unconfirmed) QT has shortened Confirmed by MD Aaron, John ([id number]) on 04/12/2022 2:52:40 PM Specimen Anatomical Collection Method Collection Time Receive d Time (Source) Location / / Volume Laterality 04/12/2022 1:25 PM 2:52 EDT PM EDT Pauline Kincaid MD ECG ORDERABLES Performing Organization Address City/[facility]/ZIP Code Phon e Number MUSE SYSTEM (ABNORMAL) Phosphorus (04/12/2022 5:22 AM EDT) athologist Signature Phosphorus 5.7 (H) 2.5 - 4.5 [facility] mg/dL [facility] Specimen Anatomical Collection Method Collection Time Receive d Time (Source) Location / / Volume Laterality Blood Venous Draw / 04/12/2022 5:22 AM 04/12/20 22 5:42 Unknown EDT AM EDT Resulting Agency Comment Spec In Lab Pauline Kincaid MD CHEMISTRY ORDERABLES Performing Organization Address City/[facility] Phon e Number [address] Lavender Tube HOLD (04/12/2022 5:22 AM EDT) Patholo gist Method Time Signature Lavender Hold Sample in [facility]. [facility] Specimen Anatomical Collection Method Collection Time Receive d Time (Source) Location / / Volume Laterality Blood Venous Draw / 04/12/2022 5:22 AM 04/12/20 22 5:35 Unknown EDT AM EDT Pauline Kincaid MD HEMATOLOGY ORDERABLES Performing Organization Address City/[facility]/ZIP [facility] Phon e Number [address] Magnesium (04/12/2022 5:22 AM EDT) P athologist Signature Magnesium 0.71 0.69 - 1.07 [facility] mmol/L [facility] Specimen Anatomical Collection Method Collection Time Receive d Time (Source) Location / / Volume Laterality Blood 04/12/2022 5:22 AM 5:35 EDT AM EDT Resulting Agency Comment Spec In Lab Pauline Kincaid MD CHEMISTRY ORDERABLES Performing Organization Address City/State/ZIP [place] [address] Basic Metabolic Panel (non-fasting) (04/12/2022 5:22 AM EDT) athologist Signature Glucose Lvl 94 65 - 199 [facility] mg/dL [facility] Comment: Diabetes: >=200 mg/dL plus symp toms BUN 13 10 - 20 mg/dL [facility] Creatinine 0.86 0.80 - 1.50 mg/dL [facility] Sodium 137 135 - 145 mmol/L [facility] Potassium 4.1 3.5 - 5.0 mmol/L [facility] Comment: Please note: ??Patients with WBC >100,00 0 may have falsely elevated Potassium levels. ??For accurate Potassium quantif ication in these patients send serum separator tube (gold top) for subsequent determinations. ??Contact the Clinical Chemistry Laboratory if there are any qu estions. Chloride 99 98 - 107 mmol/L [facility] CO2 30 22 - 31 mmol/L [facility] Anion Gap 8 5 - 15 mmol/L [facility] Calcium 9.2 8.5 - 10.5 mg/dL [facility] Estimated GFR 121 >=60 mL/min/1.73 m?? [facility] Comment: This patient's estimated GFR [...] (Source) Location / / Volume Laterality Blood 04/12/2022 5:22 AM 2 5:42 EDT AM EDT Resulting Agency Comment Spec In Lab Pauline Kincaid MD CHEMISTRY ORDERABLES Performing Organization Address City/[facility]/[place] [address] (ABNORMAL) Vitamin D, 25-Hydroxy (04/12/2022 5:22 AM EDT) [facility] Hip[employer] Method Time Signature 25-OH Vit D 16 (L) 21 - 100 [facility] Total ng/mL [facility] 25-OH Vit D Deficient [facility] LABORATORY Specimen Anatomical Collection Method Collection Time Receive d Time (Source) Location / / Volume Laterality Blood 04/12/2022 5:22 AM 2 5:35 EDT AM EDT Resulting Agency Comment Spec In Lab Pauline Kincaid MD CHEMISTRY ORDERABLES Performing Organization Address City/[facility]/[place] [address] Calcium (04/11/2022 6:12 PM EDT) P athologist Signature Calcium 9.5 8.5 - 10.5 [facility] JESSICA mg/dL [facility] Specimen Anatomical Collection Method Collection Time Receive d Time (Source) Location / / Volume Laterality Blood 04/11/2022 6:12 PM 2 6:47 EDT PM EDT Resulting Agency Comment Spec In Lab Pauline Kincaid MD CHEMISTRY ORDERABLES Performing Organization Address City/[facility]/[place] [address] COVID-19 PCR (04/11/2022 11:14 AM EDT) [facility] [employer] Method Time Signature SARS-CoV-2 Not Detected Not Detected [place] RNA PCR [facility] Comment: This result should be interpreted in com bination with the clinical observations, patient history and epidem iological information. For testing of asymptomatic individuals, assay performa nce characteristics and clinical utility have not been evaluated. Testing for SARS-CoV-2 (Severe acute respiratory syndrome coronavirus 2, form erly known as 2019 novel coronavirus or 2019-nCoV) to aid in the diagnosis of CO VID-19 is performed using the Simplexa COVID-19 Direct Assay by TeraViewleslye fontanez as authorized by the FDA issued Emergency Use Authorization (EUA). This assay is intended for In-vitro Diagnostic (IVD) use with nasopharyngeal swabs collected from individuals meeting the CDC criteria for testing. e assay is performed based on the instructions for use and additional guid ance provided by the FDA. Testing is performed in the Microbiology Laboratory within the Department of Pathology and Laboratory Medicine at [facility], certified under the Clinical Laboratory Improvement Amendmen ts of 1988 (CLIA), 42 U.S.C. section 263a, to perform high complexity tests. Assay performance has been verified according to clinical laboratory regulat ory requirements. Test results are provided above. A resul t of Not Detected indicates that the viral RNA target is not present but does not preclude SARS-CoV-2 infection. False negative results may occur if a sp ecimen is improperly collected, transported or handled; if amplification inhibitors are present; or if inadequate numbers of viral particles ar e present in the specimen. A result of Detected suggests a current or recent infection and the patient is presumed to be infected. Positive and negative pr edictive values for this test are highly dependent on disease prevalence. A result of Invalid indicates the inability to conclusively determine the presence or absence of SARS-CoV-2 RNA in the sample which can be due to a vari ety of factors. Recollection is recommended in the case of an invalid re sult. CDC COVID-19 criteria for testing on hum an specimens and clinical management guidance information are available at e CDC Coronavirus Disease 2019 (COVID-19) webpage under Information fo r Healthcare Professionals (https://www.cdc.gov/coronavirus/2019-nc ov/hcp/index.html). Additional information about this and ot her EUA tests can be found in provider and patient fact sheets at the following FDA website: https://www.fda.gov/medical-devices/zpnofgnsvwf-aeyclge-5635-xqffm-50-ygdhtpkmk- dab-apijubvpwtqiti-beiwmkl-devices/asjiq-lbtmofduljs-lfvy SARS-CoV-2 Source [employer] Swab [facility] Specimen (Source) Anatomical Collection Method Collection Time Re ceived Time Location / / Volume Laterality Nasopharyngeal Swab 04/11/2022 11:14 1012/2021 AM EDT 7:14 PM EDT Comment: Symptoms->COVID-19 Suspected Resulting Agency Comment Spec In Lab Pauline Kincaid MD MICROBIOLOGY - GENERAL ORDER WILIAM Performing Organization Address City/[facility]/ZIP Code Phon e Number [address] POCT Glucose (04/11/2022 10:29 AM EDT) athologist Signature POC Glucose 118 65 - 199 [facility] JESSICA mg/dL [facility] Comment: Supplemental ranges: <140 mg/dL before meals <180 mg/dL all other times of the day Specimen Anatomical Collection Method Collection Time Receive d Time (Source) Location / / Volume Laterality Blood 04/11/2022 10:29 04/11/2022 AM EDT 10:29 AM EDT Pauline Kincaid MD POINT OF CARE TEST ORDERABLE S Performing Organization Address City/[facility]/ZIP Code Phon e Number [address] Albumin Level (04/11/2022 7:59 AM EDT) athologist Signature Albumin 3.6 3.2 - 5.2 [facility] JESSICA g/dL [facility] Specimen Anatomical Collection Method Collection Time Receive d Time (Source) Location / / Volume Laterality Blood Venous Draw / 04/11/2022 7:59 AM 04/11/20 22 8:33 Unknown EDT AM EDT Resulting Agency Comment Spec In Lab Karina Montalvo MD CHEMISTRY ORDERABLES Performing Organization Address City/[facility]/ZIP Code Phon e Number [address] (ABNORMAL) Phosphorus (04/11/2022 7:59 AM EDT) athologist Signature Phosphorus 5.4 (H) 2.5 - 4.5 [place] JESSICA mg/dL [facility] Specimen Anatomical Collection Method Collection Time Receive d Time (Source) Location / / Volume Laterality Blood Venous Draw / 04/11/2022 7:59 AM 04/11/20 22 8:33 Unknown EDT AM EDT Resulting Agency Comment Spec In Lab Karina Montalvo MD CHEMISTRY ORDERABLES Performing Organization Address City/[facility]/ZIP Code Phon e Number [address] Magnesium (04/11/2022 7:59 AM EDT) P athologist Signature Magnesium 0.72 0.69 - 1.07 [facility] mmol/L [facility] Specimen Anatomical Collection Method Collection Time Receive d Time (Source) Location / / Volume Laterality Blood Venous Draw / 04/11/2022 7:59 AM 04/11/20 22 8:33 Unknown EDT AM EDT Resulting Agency Comment Spec In Lab Pauline Kincaid MD CHEMISTRY ORDERABLES Performing Organization Address City/[facility]/[place] [address] (ABNORMAL) Basic Metabolic Panel (non-fasting) (04/11/2022 7:59 AM EDT) athologist Signature Glucose Lvl 87 65 - 199 [facility] mg/dL [facility] Comment: Diabetes: >=200 mg/dL plus symp toms BUN 9 (L) 10 - 20 mg/dL [facility] Creatinine 0.77 (L) 0.80 - 1.50 mg/dL [facility] Sodium 139 135 - 145 mmol/L [facility] Potassium 4.3 3.5 - 5.0 mmol/L [facility] Comment: Please note: ??Patients with WBC >100,00 0 may have falsely elevated Potassium levels. ??For accurate Potassium quantif ication in these patients send serum separator tube (gold top) for subsequent determinations. ??Contact the Clinical Chemistry Laboratory if there are any qu estions. Chloride 98 98 - 107 mmol/L [facility] CO2 Not Perf 22 - 31 [facility] Comment: Add-on request. Sample too old to perform test. Anion Gap Not Calculated 5 - 15 mmol/L [facility] Comment: Add-on request. Sample too old to perform test. Calcium Not Perf 8.5 - 10.5 [facility] Comment: Duplicate order Estimated GFR 125 >=60 mL/min/1.73 m?? [facility] Comment: This patient's estimated GFR [...] / Volume Laterality Blood Venous Draw / 04/11/2022 7:59 AM 04/11/20 22 8:33 Unknown EDT AM EDT Resulting Agency Comment Spec In Lab Pauline Kincaid MD CHEMISTRY ORDERABLES Performing Organization Address City/State/[place] [address] (ABNORMAL) Calcium (04/11/2022 7:59 AM EDT) P athologist Signature Calcium 8.0 (L) 8.5 - 10.5 [facility] mg/dL [facility] Comment: result rechecked-el Specimen Anatomical Collection Method Collection Time Receive d Time (Source) Location / / Volume Laterality Blood 04/11/2022 7:59 AM 2 8:33 EDT AM EDT Resulting Agency Comment Spec In Lab Pauline Kincaid MD CHEMISTRY ORDERABLES Performing Organization Address City/State/[place] [address] Calcium (04/10/2022 5:23 PM EDT) P athologist Signature Calcium 9.2 8.5 - 10.5 [place]ESSICA mg/dL [facility] Specimen Anatomical Collection Method Collection Time Receive d Time (Source) Location / / Volume Laterality Blood 04/10/2022 5:23 PM 2 5:42 EDT PM EDT Resulting Agency Comment Spec In Lab Pauline Kincaid MD CHEMISTRY ORDERABLES Performing Organization Address City/[facility]/[place] [address] Calcium (04/10/2022 10:27 AM EDT) athologist Signature Calcium 8.7 8.5 - 10.5 [facility] JESSICA mg/dL [facility] Specimen Anatomical Collection Method Collection Time Receive d Time (Source) Location / / Volume Laterality Blood 04/10/2022 10:27 04/10/2022 AM EDT 10:49 AM EDT Resulting Agency Comment Spec In Lab Pauline Kincaid MD CHEMISTRY ORDERABLES Performing Organization Address City/[facility]/[place] [address] (ABNORMAL) Calcium (04/10/2022 4:43 AM EDT) athologist Signature Calcium 8.0 (L) 8.5 - 10.5 [facility] JESSICA mg/dL [facility] Specimen Anatomical Collection Method Collection Time Receive d Time (Source) Location / / Volume Laterality Blood 04/10/2022 4:43 AM 2 5:14 EDT AM EDT Resulting Agency Comment Spec In Lab Pauline Kincaid MD CHEMISTRY ORDERABLES Performing Organization Address City/[facility]/[place] [address] Calcium (04/10/2022 12:26 AM EDT) P athologist Signature Calcium 8.6 8.5 - 10.5 [place] JESSICA mg/dL [facility] Specimen Anatomical Collection Method Collection Time Receive d Time (Source) Location / / Volume Laterality Blood 04/10/2022 12:26 04/10/2022 AM EDT 12:33 AM EDT Resulting Agency Comment Spec In Lab Pauline Kincaid MD CHEMISTRY ORDERABLES Performing Organization Address [facility] [place] [address] Calcium (04/09/2022 7:54 PM EDT) P athologist Signature Calcium 8.5 8.5 - 10.5 [place]ESSICA mg/dL [facility] Specimen Anatomical Collection Method Collection Time Receive d Time (Source) Location / / Volume Laterality Blood 04/09/2022 7:54 PM 8:08 EDT PM EDT Resulting Agency Comment Spec In Lab Pauline Kincaid MD CHEMISTRY ORDERABLES Performing Organization Address [facility] [place] [address] (ABNORMAL) Calcium (04/09/2022 4:25 PM EDT) P athologist Signature Calcium 8.3 (L) 8.5 - 10.5 [place] JESSICA mg/dL [facility] Specimen Anatomical Collection Method Collection Time Receive d Time (Source) Location / / Volume Laterality Blood 04/09/2022 4:25 PM 4:41 EDT PM EDT Resulting Agency Comment Spec In Lab Pauline Kincaid MD CHEMISTRY ORDERABLES Performing Organization Address City/[facility] [place] [address] (ABNORMAL) Calcium (04/09/2022 12:37 PM EDT) P athologist Signature Calcium 8.4 (L) 8.5 - 10.5 [place]ESSICA mg/dL [facility] Specimen Anatomical Collection Method Collection Time Receive d Time (Source) Location / / Volume Laterality Blood 04/09/2022 12:37 04/09/2022 PM EDT 12:44 PM EDT Resulting Agency Comment Spec In Lab Pauline Kincaid MD CHEMISTRY ORDERABLES Performing Organization Address City/State/ZIP Code Phon e Number [address] (ABNORMAL) Calcium (04/09/2022 8:38 AM EDT) athologist Signature Calcium 7.7 (L) 8.5 - 10.5 [facility] Specimen Anatomical Collection Method Collection Time Receive d Time (Source) Location / / Volume Laterality Blood 04/09/2022 8:38 AM 2 8:43 EDT AM EDT Resulting Agency Comment Spec In Lab Pauline Kincaid MD CHEMISTRY ORDERABLES Performing Organization Address City/State/ZIP Code Phon e Number [address] Calcium (04/09/2022 4:39 AM EDT) athologist Signature Calcium 8.5 8.5 - 10.5 [facility]/dL [facility] Specimen Anatomical Collection Method Collection Time Receive d Time (Source) Location / / Volume Laterality Blood 04/09/2022 4:39 AM 2 5:11 EDT AM EDT Resulting Agency Comment Spec In Lab Pauline Kincaid MD CHEMISTRY ORDERABLES Performing Organization Address City/State/ZIP Code Phon e Number [address] Differential, Automated (04/09/2022 1:00 AM EDT) athologist Signature Neutrophils % 51.0 % [facility] Neutr Abs (ANC) 4.34 1.70 - [facility] 6.10 [facility] x10(3)/[facility] LABORATORY Lymphocytes % 34.9 % [facility] Lymphocytes Abs 3.0 0.9 - 3.2 [facility] x10(3)/[facility] LABORATORY Monocytes % 9.4 % [facility] Monocyte Abs 0.8 0.3 - 0.9 [facility] x10(3)/[facility] LABORATORY Eosinophils % 3.7 % [facility] Eosinophils Abs 0.3 0.0 - 0.4 [facility] x10(3)/[facility] LABORATORY Basophils % 0.6 % [facility] Basophils Abs 0.0 0.0 - 0.1 [facility] x10(3)/[facility] LABORATORY Immature Gran % 0.40 % [facility] Comment: Immature granulocytes(IG's)percentage an d absolute count will include metamyelocytes, myelocytes, and promyelo cytes. Blood smears from CBCs yielding IG's will be scanned manually for concor dance. If this scan disagrees with the automated IG or if promyelocytes are not ed, a manual differential will be performed. Ana Gran Abs 0.03 0.00 - 0.04 x10(3)/[facility] MAR Y [facility] LABORATORY Specimen Anatomical Collection Method Collection Time Receive d Time (Source) Location / / Volume Laterality Blood 04/09/2022 1:00 AM 1:04 EDT AM EDT Resulting Agency Comment Spec In Lab Oscar Zazueta MD HEMATOLOGY ORDERABLES Performing Organization Address City/State/Z[place] [address] (ABNORMAL) Hemogram (04/09/2022 1:00 AM EDT) Analysis Performed At Patho logist Time Signature WBC 8.5 4.0 - 9.5 [facility] x10(3)/[facility] LABORATORY RBC 3.65 (L) 4.58 - [facility] JESSICA 5.54 [facility] x10(6)/[facility] LABORATORY Hemoglobin 11.1 (L) 13.7 - [facility] 16.5 g/dL [facility] Hematocrit 33.2 (L) 40.5 - [facility] JESSICA 48.5 % [facility] MCV 91.0 82.9 - [facility] 93.1 fL [facility] MCH 30.4 27.5 - [facility] 32.1 pg [facility] MCHC 33.4 32.0 - [facility] 35.7 g/dL [facility] Platelets 241 145 - 357 [facility] x10(3)/[facility] LABORATORY RDWSD 38.6 36.0 - [facility] 45.0 [facility] LABORATORY RDWCV 11.5 11.4 - [facility] 13.8 % [facility] MPV 11.1 7.6 - 12.9 [facility] LABORATORY nRBC % Auto 0.0 % [facility] nRBC Abs Auto 0.000 0.000 - [facility] 0.000 [facility] x10(3)/[facility] LABORATORY Specimen Anatomical Collection Method Collection Time Receive d Time (Source) Location / / Volume Laterality Blood 04/09/2022 1:00 AM 2 1:04 EDT AM EDT Resulting Agency Comment Spec In Lab Oscar Zazueta MD HEMATOLOGY ORDERABLES Performing Organization Address City/State/ZIP Code Phon e Number [address] Calcium (04/09/2022 1:00 AM EDT) P athologist Signature Calcium 8.6 8.5 - 10.5 [facility] Specimen Anatomical Collection Method Collection Time Receive d Time (Source) Location / / Volume Laterality Blood 04/09/2022 1:00 AM 2 1:04 EDT AM EDT Resulting Agency Comment Spec In Lab Pauline Kincaid MD CHEMISTRY ORDERABLES Performing Organization Address City/[facility]/ZIP Code Phon e Number [address] (ABNORMAL) Phosphorus (04/09/2022 1:00 AM EDT) P athologist Signature Phosphorus 6.9 (H) 2.5 - 4.5 [facility] mg/dL [facility] Specimen Anatomical Collection Method Collection Time Receive d Time (Source) Location / / Volume Laterality Blood 04/09/2022 1:00 AM 2 1:04 EDT AM EDT Resulting Agency Comment Spec In Lab Oscar Zazueta MD CHEMISTRY ORDERABLES Performing Organization Address City/State/ZIP Code Phon e Number [address] Magnesium (04/09/2022 1:00 AM EDT) athologist Signature Magnesium 0.78 0.69 - 1.07 [facility] mmol/L [facility] Specimen Anatomical Collection Method Collection Time Receive d Time (Source) Location / / Volume Laterality Blood 04/09/2022 1:00 AM 1:04 EDT AM EDT Resulting Agency Comment Spec In Lab Oscar Zazueta MD CHEMISTRY ORDERABLES Performing Organization Address City/State/ZIP [place] [address] Basic Metabolic Panel (non-fasting) (04/09/2022 1:00 AM EDT) athologist Signature Glucose Lvl 120 65 - 199 [facility] mg/dL [facility] Comment: Diabetes: >=200 mg/dL plus symp toms BUN 11 10 - 20 mg/dL [facility] Creatinine 0.82 0.80 - 1.50 mg/dL [facility] Sodium 138 135 - 145 mmol/L [facility] Potassium 4.2 3.5 - 5.0 mmol/L [facility] Comment: Please note: ??Patients with WBC >100,00 0 may have falsely elevated Potassium levels. ??For accurate Potassium quantif ication in these patients send serum separator tube (gold top) for subsequent determinations. ??Contact the Clinical Chemistry Laboratory if there are any qu estions. Chloride 101 98 - 107 mmol/L [facility] CO2 28 22 - 31 mmol/L [facility] Anion Gap 9 5 - 15 mmol/L [facility] Calcium 8.6 8.5 - 10.5 mg/dL [facility] Estimated GFR 123 >=60 mL/min/1.73 m?? [facility] Comment: This patient's estimated GFR [...] (Source) Location / / Volume Laterality Blood 04/09/2022 1:00 AM 2 1:04 EDT AM EDT Resulting Agency Comment Spec In Lab Oscar Zazueta MD CHEMISTRY ORDERABLES Performing Organization Address City/[facility] Phon e Number [address] (ABNORMAL) Calcium (04/08/2022 7:55 PM EDT) athologist Signature Calcium 8.3 (L) 8.5 - 10.5 [facility] mg/dL [facility] Comment: result rechecked-nb Specimen Anatomical Collection Method Collection Time Receive d Time (Source) Location / / Volume Laterality Blood 04/08/2022 7:55 PM 2 8:02 EDT PM EDT Resulting Agency Comment Spec In Lab Pauline Kincaid MD CHEMISTRY ORDERABLES Performing Organization Address City/[facility]/[place] [address] Magnesium (04/08/2022 3:47 PM EDT) athologist Signature Magnesium 0.76 0.69 - 1.07 [facility] JESSICA mmol/L [facility] Specimen Anatomical Collection Method Collection Time Receive d Time (Source) Location / / Volume Laterality Blood Venous Draw / 04/08/2022 3:47 PM 04/08/20 22 4:16 Unknown EDT PM EDT Resulting Agency Comment Spec In Lab Pauline Kincaid MD CHEMISTRY ORDERABLES Performing Organization Address City/[facility]/ZIP [facility] [place] [address] (ABNORMAL) Calcium (04/08/2022 3:47 PM EDT) athologist Signature Calcium 7.3 (L) 8.5 - 10.5 [facility] mg/dL [facility] Specimen Anatomical Collection Method Collection Time Receive d Time (Source) Location / / Volume Laterality Blood 04/08/2022 3:47 PM 4:16 EDT PM EDT Resulting Agency Comment Spec In Lab Pauline Kincaid MD CHEMISTRY ORDERABLES Performing Organization Address City/[facility]/ZIP [facility] Phon e Number [address] Urine Hold (04/08/2022 12:40 PM EDT) athologist [facility] Urine Hold Sample in [facility] LABORATORY Specimen Anatomical Collection Method Collection Time Receive d Time (Source) Location / / Volume Laterality Urine Urine / Unknown 04/08/2022 12:40 04/08/20 22 8:20 PM EDT PM EDT Pauline Kincaid MD URINE ORDERABLES Performing Organization Address City/[facility] Code Phon e Number [address] Calcium Creatinine Ratio, random urine (04/08/2022 12:40 PM EDT) athologist Signature U Calcium 3.8 mg/dL [facility] U Creatinine 36 mg/dL [facility] Ca/Cre Ratio 0.11 ratio [facility] Specimen Anatomical Collection Method Collection Time Receive d Time (Source) Location / / Volume Laterality Urine 04/08/2022 12:40 04/08/2022 2:42 PM EDT PM EDT Resulting Agency Comment Spec In Lab Pauline Kincaid MD URINE ORDERABLES Performing Organization Address City/[facility] Phon e Number [address] Differential, Automated (04/08/2022 4:53 AM EDT) athologist Signature Neutrophils % 44.4 % [facility] Neutr Abs (ANC) 2.87 1.70 - [facility] 6.10 [facility] x10(3)/[facility] LABORATORY Lymphocytes % 40.5 % [facility] Lymphocytes Abs 2.6 0.9 - 3.2 [facility] x10(3)/[facility] LABORATORY Monocytes % 10.5 % [facility] Monocyte Abs 0.7 0.3 - 0.9 [facility] x10(3)/[facility] LABORATORY Eosinophils % 3.1 % [facility] Eosinophils Abs 0.2 0.0 - 0.4 [facility] x10(3)/[facility] LABORATORY Basophils % 0.9 % [facility] LABORATORY Basophils Abs 0.1 0.0 - 0.1 [place] [id number](3)/[facility] LABORATORY Immature Gran % 0.60 % [facility] LABORATORY Comment: Immature granulocytes(IG's)percentage an d absolute count will include metamyelocytes, myelocytes, and promyelo cytes. Blood smears from CBCs yielding IG's will be scanned manually for concor dance. If this scan disagrees with the automated IG or if promyelocytes are not ed, a manual differential will be performed. Ana Gran Abs 0.04 0.00 - 0.04 x10(3)/[facility] MAR Y [facility] LABORATORY Specimen Anatomical Collection Method Collection Time Receive d Time (Source) Location / / Volume Laterality Blood 04/08/2022 4:53 AM 5:31 EDT AM EDT Resulting Agency Comment Spec In Lab Oscar Zazueta MD HEMATOLOGY ORDERABLES Performing Organization Address City/State/[place] [address] (ABNORMAL) Hemogram (04/08/2022 4:53 AM EDT) Analysis Performed At Patho logist Time Signature WBC 6.5 4.0 - 9.5 [facility] x10(3)/[facility] LABORATORY RBC 4.44 (L) 4.58 - [facility] 5.54 [facility] x10(6)/[facility] LABORATORY Hemoglobin 13.6 (L) 13.7 - [facility] 16.5 g/dL [facility] LABORAT[facility] Hematocrit 41.6 40.5 - CYNTHIA LOPEZ 48.5 % [facility] MCV 93.7 (H) 82.9 - [place] MADSENCK 93.1 [facility] LABORATORY MCH 30.6 27.5 - [place]RED[place]OCK 32.1 pg [facility] MCHC 32.7 32.0 - [place] 35.7 g/dL [facility] Platelets 226 145 - 357 [facility] x10(3)/[facility] LABORATORY RDWSD 40.4 36.0 - [place] ARREDON[place]OCK 45.0 [facility] LABORATORY RDWCV 11.8 11.4 - [place]IA OLPEZ 13.8 % [facility] MPV 11.2 7.6 - 12.9 [place]NTHIA LOPEZ [facility] LABORATORY nRBC % Auto 0.0 % [facility] LABORATORY nRBC Abs Auto 0.000 0.000 - [place] MOONJESSICA 0.000 [facility] x10(3)/[facility] LABORATORY Specimen Anatomical Collection Method Collection Time Receive d Time (Source) Location / / Volume Laterality Blood 04/08/2022 4:53 AM 2 5:31 EDT AM EDT Resulting Agency Comment Spec In Lab Oscar Zazueta MD HEMATOLOGY ORDERABLES Performing Organization Address City/State/ZIP Code Phon e Number [address] (ABNORMAL) Phosphorus (04/08/2022 4:53 AM EDT) P athologist Signature Phosphorus 6.8 (H) 2.5 - 4.5 [facility] JESSICA mg/dL [facility]ORAT[facility] Specimen Anatomical Collection Method Collection Time Receive d Time (Source) Location / / Volume Laterality Blood 04/08/2022 4:53 AM 2 5:31 EDT AM EDT Resulting Agency Comment Spec In Lab Oscar Zazueta MD CHEMISTRY ORDERABLES Performing Organization Address City/[facility]/ZIP [facility] Phon e Number [address] (ABNORMAL) Magnesium (04/08/2022 4:53 AM EDT) P athologist Signature Magnesium 0.67 (L) 0.69 - 1.07 [facility] mmol/L [facility] Specimen Anatomical Collection Method Collection Time Receive d Time (Source) Location / / Volume Laterality Blood 04/08/2022 4:53 AM 5:31 EDT AM EDT Resulting Agency Comment Spec In Lab Oscar Zazueta MD CHEMISTRY ORDERABLES Performing Organization Address City/State/ZIP [place] [address] (ABNORMAL) Basic Metabolic Panel (non-fasting) (04/08/2022 4:53 AM EDT) P athologist Signature Glucose Lvl 78 65 - 199 [facility] mg/dL [facility] Comment: Diabetes: >=200 mg/dL plus symp toms BUN 9 (L) 10 - 20 mg/dL [facility] LABORATORY Creatinine 0.76 (L) 0.80 - 1.50 mg/dL [facility] LABORATORY Sodium 136 135 - 145 mmol/L [facility] LABORATORY Potassium 4.1 3.5 - 5.0 mmol/L [facility] LABORATORY Comment: Please note: ??Patients with WBC >100,00 0 may have falsely elevated Potassium levels. ??For accurate Potassium quantif ication in these patients send serum separator tube (gold top) for subsequent determinations. ??Contact the Clinical Chemistry Laboratory if there are any qu estions. Chloride 97 (L) 98 - 107 mmol/L [facility] LABORATORY CO2 22 22 - 31 mmol/L [facility] LABORATORY Anion Gap 17 (H) 5 - 15 mmol/L [facility] LABORATORY Calcium 7.0 (L) 8.5 - 10.5 mg/dL [facility] LABORATORY Estimated GFR 126 >=60 mL/min/1.73 m?? [facility] LABORATORY Comment: This patient's estimated GFR [...] (Source) Location / / Volume Laterality Blood 04/08/2022 4:53 AM 5:31 EDT AM EDT Resulting Agency Comment Spec In Lab Oscar Zazueta MD CHEMISTRY ORDERABLES Performing Organization Address City/State/Z[place] [address] (ABNORMAL) Rapid Drug Screen w/o Confirmation, Urine (04/07/2022 10:05 PM EDT) [facility] Method Time Signature U Barbiturates None None [facility] Screen Detected [facility] LABORATORY Comment: The barbiturate screen detects barbitura ousmane at concentrations >200 ng/mL. Note: Not all barbiturates cross-react equally with antibody used in this screen. A ? Presumptive Positive? result indicates that the screening result was positive but has not yet been confirmed by a highly-specific method. As with any screen, occasional false positive re sults from cross-reacting substances may occur. Not for Medico-Legal Purposes. U Benzodiazepines Screen None Detected None Detected [facility] LABORATORY Comment: The benzodiazepines screen detects benzo diazepines at concentrations >100 ng/mL. Not all benzodiazepines cross-pieter ct equally with antibody used in this screen. Due to the low dosage of clonaze arden, false negatives may be obtained due to low concentration of clonazepam m etabolites. A ? Presumptive Positive? result indicates that the screening result was positive but has not yet been confirmed by a highly-specific method. As with any screen, occasional false positive re sults from cross-reacting substances may occur. Not for Medico-Legal Purposes. U Cocaine Screen None Detected None Detected [facility] LABORATORY Comment: The cocaine metabolites screen detects b enzoylecgonine (Cocaine Metabolite) at concentrations >150 ng/mL. A ? Presumptive Positive? result indicates that the screening result was positive but has not yet been confirmed by a highly-specific method. As with any screen, occasional false positive re sults from cross-reacting substances may occur. Not for Medico-Legal Purposes. U Methadone Metabolites Presumptive Pos (A) None Detected [facility] LABORATORY Comment: The methadone metabolite screen detects EDDP (major methadone metabolite) at concentrations >100 ng/mL. A ? Presumptive Positive? result indicates that the screening result was positive but has not yet been confirmed by a highly-specific method. As with any screen, occasional false positive re sults from cross-reacting substances may occur. Not for Medico-Legal Purposes. U Opiate Screen None Detected None Detected [facility] LABORATORY Comment: The opiates screen detects opiates at co ncentrations >300 ng/mL. Please note that oxycodone, oxymorphone, fentanyl, tramadol, and other synthetic opioids are not detected [facility]. A ? Presumptive Positive? result indicates that the screening result was positive but has not yet been confirmed by a highly-specific method. As with any screen, occasional false positive re sults from cross-reacting substances may occur. Not for Medico-Legal Purposes. U Cannabinoid Screen None Detected None Detected Monica DENG [facility] LABORATORY Comment: The marijuana metabolites screen detects the THC metabolite (59-zne-7-carboxy-delta 9-THC) at concen trations >20 ng/mL. A ? Presumptive Positive? result indicates that the screening result was positive but has not yet been confirmed by a highly-specific method. As with any screen, occasional false positive re sults from cross-reacting substances may occur. Not for Medico-Legal Purposes. U Oxycodone Screen None Detected None Detected [facility] LABORATORY Comment: The oxycodone screen detects oxycodone a nd oxymorphone at concentrations >100 ng/mL. A ? Presumptive Positive? result indicates that the screening result was positive but has not yet been confirmed by a highly-specific method. As with any screen, occasional false positive re sults from cross-reacting substances may occur. Not for Medico-Legal Purposes. U Buprenorphine Screen None Detected None Detected [facility] LABORATORY Comment: The buprenorphine screen detects bupreno rphine at concentrations >=5 ng/mL. A ? Presumptive Positive? result indicates that the screening result was positive but has not yet been confirmed by a highly-specific method. As with any screen, occasional false positive re sults from cross-reacting substances may occur. Not for Medico-Legal Purposes. This test has not been cleared by the [place] FDA. Performance characteristics of this test were determined by [facility] in accordance with CLIA requirements. This laboratory is qualified under CLIA to perform high-complexity testing. U Fentanyl Screen None Detected None Detected Monica DENG [facility] LABORATORY Comment: The fentanyl screen detects fentanyl at concentrations >=2 ng/mL. A ? Presumptive Positive? result indicates that the screening result was positive but has not yet been confirmed by a highly-specific method. As with any screen, occasional false positive re sults from cross-reacting substances may occur. Not for Medico-Legal Purposes. This test has not been cleared by the [place] FDA. Performance characteristics of this test were determined by [facility] in accordance with CLIA requirements. This laboratory is qualifi ed under CLIA to perform high-complexity testing. U Tricyclics Screen None Detected None Detected [facility] LABORATORY Comment: The tricyclics screen detects tricyclic antidepressants at concentrations >=150 ng/mL. Not all tricyclics cross-react eq ually with the antibody used in this screen. A ? Presumptive Positive? result indicates that the screening result was positive but has not yet been confirmed by a highly-specific method. As with any screen, occasional false positive re sults from cross-reacting substances may occur. Not for Medico-Legal Purposes. This test has not been cleared by the [place] FDA. Performance characteristics of this test were determined by [facility] in accordance with CLIA requirements. This laboratory is qualified under CLIA to perform high-complexity testing. U Ethanol Screen None Detected None Detected [facility] LABORATORY Comment: This urine ethanol assay detect s ethanol at concentrations >/= 100 mg/L. U Amphetamines Screen None Detected None Detected [facility] LABORATORY Comment: The amphetamine screen detects d-ampheta mine and d-methamphetamine at concentrations >300 ng/mL. A ? Presumptive Positive? result indicates that the screening result was positive but has not yet been confirmed by a highly-specific method. As with any screen, occasional false positive re sults from cross-reacting substances may occur. Not for Medico-Legal Purposes. U Adulterants Screen None Detected None Detected Monica DENG [facility] LABORATORY Comment: No adulteration or dilution of this urin e sample was detected. All urine samples submitted for urine drugs of abu se analysis are tested for creatinine concentration, pH, and for the presence of oxidants, nitrites, and chromate. Specimen Anatomical Collection Method Collection Time Receive d Time (Source) Location / / Volume Laterality Urine 04/07/2022 10:05 04/07/2022 PM EDT 10:15 PM EDT Resulting Agency Comment Spec In Lab Oscar Zazueta MD CHEMISTRY ORDERABLES Performing Organization Address City/[facility]/ZIP [place] [address] Rapid Drug Screen, Urine (TANNER Request) (04/07/2022 10:05 PM EDT) P athologist Signature TANNER Conf No [facility] LABORATORY Comment: Collection date/time has been modified t o: 22:05:00. ??Previous collection date/time: 22:03:00 . Corrected from No [NA] on 04/07/22 22:15 :29 EDT by Dallin Adams. TANNER Requested See Comment [facility] LABORATORY Comment: Refer to Rapid Drug Screen w/o Confirmat ion, Urine for results. Collection date/time has been modified to: 2 22:05:00. ??Previous collection date/time: 22:03:00. Corrected from See Comment [NA] on 04/07 22:15:29 EDT by Dallin Adams. Specimen Anatomical Collection Method Collection Time Receive d Time (Source) Location / / Volume Laterality Urine 04/07/2022 10:05 04/07/2022 PM EDT 10:15 PM EDT Resulting Agency Comment Spec In Lab Oscar Zazueta MD URINE ORDERABLES Performing Organization Address City/[facility]/ZIP [place] [address] (ABNORMAL) Basic Metabolic Panel (non-fasting) (04/07/2022 12:03 PM EDT) P athologist Signature Glucose Lvl 97 65 - 199 [facility] mg/dL [facility]ORATORY Comment: Diabetes: >=200 mg/dL plus symp toms BUN 7 (L) 10 - 20 mg/dL [facility] LABORATORY Creatinine 0.74 (L) 0.80 - 1.50 mg/dL [facility] LABORATORY Sodium 141 135 - 145 mmol/L [facility] LABORATORY Potassium 4.1 3.5 - 5.0 mmol/L [facility] LABORATORY Comment: Please note: ??Patients with WBC >100,00 0 may have falsely elevated Potassium levels. ??For accurate Potassium quantif ication in these patients send serum separator tube (gold top) for subsequent determinations. ??Contact the Clinical Chemistry Laboratory if there are any qu estions. Chloride 100 98 - 107 mmol/L [facility] LABORATORY CO2 30 22 - 31 mmol/L [facility] LABORATORY Anion Gap 11 5 - 15 mmol/L [facility] LABORATORY Calcium 7.5 (L) 8.5 - 10.5 mg/dL [facility] LABORATORY Estimated GFR 127 >=60 mL/min/1.73 m?? [facility] LABORATORY Comment: This patient's estimated GFR [...] (Source) Location / / Volume Laterality Blood 04/07/2022 12:03 04/07/2022 PM EDT 12:25 PM EDT Resulting Agency Comment Spec In Lab Britni Gonzalez MD CHEMISTRY ORDERABLES Performing Organization Address City/State/[place] [address] Differential, Automated (04/07/2022 5:15 AM EDT) P athologist Signature Neutrophils % 47.5 % [facility] LABORATORY Neutr Abs (ANC) 3.83 1.70 - [facility] 6.10 [facility] x10(3)/[facility] LABORATORY Lymphocytes % 39.4 % [facility] LABORATORY Lymphocytes Abs 3.2 0.9 - 3.2 [facility] x10(3)/[facility] LABORATORY Monocytes % 10.0 % [facility] LABORATORY Monocyte Abs 0.8 0.3 - 0.9 [facility] x10(3)/[facility] LABORATORY Eosinophils % 2.2 % [facility] LABORATORY Eosinophils Abs 0.2 0.0 - 0.4 [facility] x10(3)/[facility] LABORATORY Basophils % 0.7 % [facility] LABORATORY Basophils Abs 0.1 0.0 - 0.1 [facility] x10(3)/[facility] LABORATORY Immature Gran % 0.20 % [facility] LABORATORY Comment: Immature granulocytes(IG's)percentage an d absolute count will include metamyelocytes, myelocytes, and promyelo cytes. Blood smears from CBCs yielding IG's will be scanned manually for concor dance. If this scan disagrees with the automated IG or if promyelocytes are not ed, a manual differential will be performed. Naa Gran Abs 0.02 0.00 - 0.04 x10(3)/[facility] LABORATORY Specimen Anatomical Collection Method Collection Time Receive d Time (Source) Location / / Volume Laterality Blood 04/07/2022 5:15 AM 5:21 EDT AM EDT Resulting Agency Comment Spec In Lab Oscar Zazueta MD HEMATOLOGY ORDERABLES Performing Organization Address City/[facility]/ZIP [place] [address] (ABNORMAL) Hemogram (04/07/2022 5:15 AM EDT) Analysis Performed At Patho logist Time Signature WBC 8.1 4.0 - 9.5 [facility] x10(3)/[facility] LABORATORY RBC 3.71 (L) 4.58 - CYNTHIA JESSICA 5.54 [facility] x10(6)/[facility] LABORATORY Hemoglobin 11.3 (L) 13.7 - [facility] 16.[facility] g/dL [facility] Hematocrit 32.9 (L) 40.5 - [facility] 48.5 % [facility] MCV 88.7 82.9 - [facility] 93.1 [facility] LABORATORY MCH 30.5 27.5 - [facility] 32.1 pg [facility] MCHC 34.3 32.0 - [facility] 35.7 g/dL [facility] Platelets 227 145 - 357 [facility] x10(3)/[facility] LABORATORY RDWSD 37.4 36.0 - [facility] JESSICA 45.0 [facility] LABORATORY RDWCV 11.6 11.4 - [facility] JESSICA 13.8 % [facility] MPV 10.9 7.6 - 12.9 [facility] LABORATORY nRBC % Auto 0.0 % [facility] LABORATORY nRBC Abs Auto 0.000 0.000 - [facility] JESSICA 0.000 [facility] x10(3)/[facility] LABORATORY Specimen Anatomical Collection Method Collection Time Receive d Time (Source) Location / / Volume Laterality Blood 04/07/2022 5:15 AM 5:21 EDT AM EDT Resulting Agency Comment Spec In Lab Oscar Zazueta MD HEMATOLOGY ORDERABLES Performing Organization Address City/State/[place] [address] Hepatic Function Panel (04/07/2022 5:15 AM EDT) P athologist Signature Total Protein 6.4 6.1 - 8.0 [facility] Albumin 3.5 3.2 - 5.2 CYNTHIA MOONJESSICA g/dL [facility] AST 15 0 - 39 CYNTHIA MOONJESSICA unit/L [facility] ALT 17 0 - 55 CYNTHIA JESSICA unit/L [facility] Alk Phos 119 40 - 130 [facility] JESSICA unit/L [facility] Total 0.3 0.2 - 1.3 [place] ARREDON[place]OCK Bilirubin mg/dL [facility] Bili, Direct 0.1 0.0 - 0.3 [facility] JESSICA mg/dL [facility] Specimen Anatomical Collection Method Collection Time Receive d Time (Source) Location / / Volume Laterality Blood 04/07/2022 5:15 AM 2 5:21 EDT AM EDT Resulting Agency Comment Spec In Lab Oscar Zazueta MD CHEMISTRY ORDERABLES Performing Organization Address City/[facility] Code Phon e Number [address] (ABNORMAL) Phosphorus (04/07/2022 5:15 AM EDT) P athologist Signature Phosphorus 7.0 (H) 2.5 - 4.5 [facility] JESSICA mg/dL [facility] Specimen Anatomical Collection Method Collection Time Receive d Time (Source) Location / / Volume Laterality Blood 04/07/2022 5:15 AM 2 5:21 EDT AM EDT Resulting Agency Comment Spec In Lab Oscar Zazueta MD CHEMISTRY ORDERABLES Performing Organization Address City/[facility]/ZIP [place] [address] Magnesium (04/07/2022 5:15 AM EDT) P athologist Signature Magnesium 0.76 0.69 - 1.07 [facility] JESSICA mmol/L [facility] Specimen Anatomical Collection Method Collection Time Receive d Time (Source) Location / / Volume Laterality Blood 04/07/2022 5:15 AM 2 5:21 EDT AM EDT Resulting Agency Comment Spec In Lab Oscar Zazueta MD CHEMISTRY ORDERABLES Performing Organization Address City/[facility]/ZIP [place] [address] (ABNORMAL) Basic Metabolic Panel (non-fasting) (04/07/2022 5:15 AM EDT) P athologist Signature Glucose Lvl 85 65 - 199 [facility] mg/dL [facility] Comment: Diabetes: >=200 mg/dL plus symp toms BUN 9 (L) 10 - 20 mg/dL [facility] Creatinine 0.77 (L) 0.80 - 1.50 mg/dL [facility] LABORATORY Sodium 139 135 - 145 mmol/L [facility] Potassium 3.9 3.5 - 5.0 mmol/L [facility] Comment: Please note: ??Patients with WBC >100,00 0 may have falsely elevated Potassium levels. ??For accurate Potassium quantif ication in these patients send serum separator tube (gold top) for subsequent determinations. ??Contact the Clinical Chemistry Laboratory if there are any qu estions. Chloride 101 98 - 107 mmol/L [facility] LABORATORY CO2 30 22 - 31 mmol/L [facility] LABORATORY Anion Gap 8 5 - 15 mmol/L [facility] Calcium 7.2 (L) 8.5 - 10.5 mg/dL [facility] Estimated GFR 125 >=60 mL/min/1.73 m?? [facility] LAB[facility]ORY Comment: This patient's estimated GFR [...] (Source) Location / / Volume Laterality Blood 04/07/2022 5:15 AM 5:21 EDT AM EDT Resulting Agency Comment Spec In Lab Oscar Zazueta MD CHEMISTRY ORDERABLES Performing Organization Address City/State/ZIP Code Phon e Number [place] [id number] HOSPITAL LABORATORY Drive CT Head wo Contrast (Generic) (04/06/2022 9:45 PM EDT) Anatomical Region Laterality Modality Head Computed Tomography Specimen (Source) Anatomical Location Collection Method / Collectio n Time Received Time / Laterality Volume Impressions 04/06/2022 9:56 PM EDT No acute intracranial abnormality. Thank you for letting us participate in the care of this patient. ??If you are a health care provider and have any questi ons regarding this report, please contact the number below. ??For patients who have questions please contact the health summer child caregiver that requested your imaging first. ? Electronically signed by: Monica Arteaga, [facility] ([phone]), at 04/06/2022 9:56 PM Narrative 04/06/2022 9:56 PM EDT EXAMINATION: CT HEAD WO CONTRAST (GENERIC) CLINICAL HISTORY: Neuro deficit, acute, stroke suspected; 26M with reproducible R-sided weakness ongoing since intubatio n at OSH one week ago; per pt, has not had head imaging. TECHNIQUE: CT head performed without intravenous co ntrast administration. COMPARISON: MR pituitary 03/12/2022. FINDINGS: Ryan-white interface appears well differ entiated. Lateral ventricles are symmetric. Basal cisterns are patent. No global mass effect, midline shift, he rniation, large space-occupying process appreciated. No acute intracranial hemorrhage. Orbits: Normal Included paranasal sinuses: Minimal muco alfonso thickening in left maxillary and frontal sinuses.. Mastoid air cells: Clear. Osseous structures: Within normal limits Extracranial soft tissues: Unremarkable. Procedure Note Geo Estevez MD - 04/06/2022Formattin g of this note might be different from the original. EXAMINATION: CT HEAD WO CONTRAST (GENERI C) CLINICAL HISTORY: Neuro deficit, acute, stroke suspected; 26M with reproducible R-sided weakness ongoing since intubatio n at OSH one week ago; per pt, has not had head imaging. TECHNIQUE: CT head performed without intravenous co ntrast administration. COMPARISON: MR pituitary 03/12/2022. FINDINGS: Ryan-white interface appears well differ entiated. Lateral ventricles are symmetric. Basal cisterns are patent. No global mass effect, midline shift, he rniation, large space-occupying process appreciated. No acute intracranial hemorrhage. Orbits: Normal Included paranasal sinuses: Minimal muco alfonso thickening in left maxillary and frontal sinuses.. Mastoid air cells: Clear. Osseous structures: Within normal limits Extracranial soft tissues: Unremarkable. IMPRESSION No acute intracranial abnormality. Thank you for letting us participate in the care of this patient. If you are a health care provider and have any questi ons regarding this report, please contact the number below. For patients w ho have questions please contact the health summer child caregiver that requested your imaging first. Kuldeep Rooney MD IMG CT ORDERABLES (ABNORMAL) Calcium Ionized Whole Blood, ADAM (04/06/2022 9:10 PM EDT) Analysis Performed At Patho logist Time Signature pH Adam 7.35 7.32 - [facility] 7.42 [facility] ICa Whole 0.99 (L) 1.15 - [facility] Blood 1.33 [facility] mmol/L [facility] Comment: Note: ??Total bilirubin higher than 20 m g/dL may lead to falsely low ionized calcium. Specimen Anatomical Collection Method Collection Time Receive d Time (Source) Location / / Volume Laterality Blood 04/06/2022 9:10 PM 9:18 EDT PM EDT Resulting Agency Comment Spec In Lab Kuldeep Rooney MD CHEMISTRY ORDERABLES Performing Organization Address City/State/[place] [address] EKG 12 Lead (04/06/2022 7:52 PM EDT) Component Value Ref Range Test Analysis Performed Pathologis t Method Time At Signature Ventricular rate 76 BPM MUSE SYSTEM Atrial Rate 76 BPM MUSE SYSTEM P-R Interval 176 ms MUSE SYSTEM QRS Duration 92 ms MUSE SYSTEM Q-T Interval 352 ms MUSE SYSTEM QTC Calculated 396 ms MUSE SYSTEM (Bezet) Calculated P [place] 40 degrees MUSE SYSTEM Calculated R [place] 57 degrees MUSE SYSTEM Calculated T [place] 65 degrees MUSE SYSTEM INTERPRETATION Normal sinus rhythm MUSE SYSTEM Nonspecific T wave abnormality Abnormal ECG When compared with ECG of 04-FEB-2022 10:43, No significant change was found Confirmed by MD Javier, [facility] ([id number]) on 04/07/2022 10: 09:14 AM Specimen Anatomical Collection Method Collection Time Receive d Time (Source) Location / / Volume Laterality 04/06/2022 7:52 PM EDT 10:09 AM EDT Kuldeep Rooney MD ECG ORDERABLES Performing Organization Address City/State/ZIP Code Phon e Number MUSE SYSTEM (ABNORMAL) Vitamin D, 25-Hydroxy (04/06/2022 7:20 PM EDT) Patholo gist Method Time Signature 25-OH Vit D 11 (L) 21 - 100 [facility] Total ng/mL [facility] 25-OH Vit D Deficient [facility] LABORATORY Specimen Anatomical Collection Method Collection Time Receive d Time (Source) Location / / Volume Laterality Blood Venous Draw / 04/06/2022 7:20 PM 04/06/20 7:40 Unknown EDT PM EDT Resulting Agency Comment Spec In Lab Pauline Kincaid MD CHEMISTRY ORDERABLES Performing Organization Address City/State/[place] [address] (ABNORMAL) PTH (04/06/2022 7:20 PM EDT) P athologist Signature PTH 6 (L) 15 - 65 [facility] Specimen Anatomical Collection Method Collection Time Receive d Time (Source) Location / / Volume Laterality Blood Venous Draw / 04/06/2022 7:20 PM 04/07/20 Unknown EDT 12:09 AM EDT Resulting Agency Comment Spec In Lab Oscar Zazueta MD CHEMISTRY ORDERABLES Performing Organization Address City/State/ZIP Code Phon e Number [address] Gold Tube HOLD (04/06/2022 7:20 PM EDT) P athologist Signature Gold Hold Sample in [facility]. [facility] Specimen Anatomical Collection Method Collection Time Receive d Time (Source) Location / / Volume Laterality Blood Venous Draw / 04/06/2022 7:20 PM 04/06/20 7:25 Unknown EDT PM EDT Kimberli Armas MD CHEMISTRY ORDERABLES Performing Organization Address City/[facility]/ZIP Code Phon e Number [address] Differential, Automated (04/06/2022 7:20 PM EDT) athologist Signature Neutrophils % 61.0 % [facility] Neutr Abs (ANC) 5.09 1.70 - [facility] 6.10 [facility] x10(3)/[facility] LABORATORY Lymphocytes % 26.7 % [facility] Lymphocytes Abs 2.2 0.9 - 3.2 [facility] x10(3)/[facility] LABORATORY Monocytes % 9.2 % [facility] Monocyte Abs 0.8 0.3 - 0.9 [facility] x10(3)/[facility] LABORATORY Eosinophils % 2.2 % [facility] Eosinophils Abs 0.2 0.0 - 0.4 [facility] x10(3)/[facility] LABORATORY Basophils % 0.5 % [facility] Basophils Abs 0.0 0.0 - 0.1 [facility] x10(3)/[facility] LABORATORY Immature Gran % 0.40 % [facility] Comment: Immature granulocytes(IG's)percentage an d absolute count will include metamyelocytes, myelocytes, and promyelo cytes. Blood smears from CBCs yielding IG's will be scanned manually for concor dance. If this scan disagrees with the automated IG or if promyelocytes are not ed, a manual differential will be performed. Ana Gran Abs 0.03 0.00 - 0.04 x10(3)/[facility] MAR Y [facility] LAB[facility]ATORY Specimen Anatomical Collection Method Collection Time Receive d Time (Source) Location / / Volume Laterality Blood 04/06/2022 7:20 PM 7:25 EDT PM EDT Resulting Agency Comment Spec In Lab Alejandro Elam APRN HEMATOLOGY ORDERABLES Performing Organization Address City/State/ZIP [place] [address] (ABNORMAL) Hemogram (04/06/2022 7:20 PM EDT) Analysis Performed At Patho logist Time Signature WBC 8.3 4.0 - 9.5 [facility] x10(3)/[facility] LABORATORY RBC 4.09 (L) 4.58 - [facility] 5.54 [facility] x10(6)/[facility] LABORATORY Hemoglobin 12.5 (L) 13.7 - [facility] 16.5 g/dL [facility] Hematocrit 36.6 (L) 40.5 - [facility] 48.5 % [facility] MCV 89.5 82.9 - [facility] 93.1 [facility]ORATORY MCH 30.6 27.5 - [facility] 32.1 pg [facility] MCHC 34.2 32.0 - [facility] 35.[facility] g/dL [facility] Platelets 274 145 - 357 [facility] x10(3)/[facility] LABORATORY RDWSD 37.6 36.0 - [facility] 45.0 [facility] LABORATORY RDWCV 11.6 11.4 - [facility] 13.8 % [facility] MPV 10.8 7.6 - 12.9 [facility] LABORATORY nRBC % Auto 0.0 % [facility]ORY nRBC Abs Auto 0.000 0.000 - [facility] 0.000 [facility] x10(3)/[facility] LABORATORY Specimen Anatomical Collection Method Collection Time Receive d Time (Source) Location / / Volume Laterality Blood 04/06/2022 7:20 PM 10/22/202 2 7:25 EDT PM EDT Resulting Agency Comment Spec In Lab Alejandro Garciaechojoe METZGER HEMATOLOGY ORDERABLES Performing Organization Address City/[facility]/ZIP Code Phon e Number [address] (ABNORMAL) Phosphorus (04/06/2022 7:20 PM EDT) P athologist Signature Phosphorus 5.9 (H) 2.5 - 4.5 [facility] mg/dL [facility] Specimen Anatomical Collection Method Collection Time Receive d Time (Source) Location / / Volume Laterality Blood 04/06/2022 7:20 PM 2 7:24 EDT PM EDT Resulting Agency Comment Spec In Lab Kimberli Armas MD CHEMISTRY ORDERABLES Performing Organization Address City/[facility]/[place] [address] (ABNORMAL) Magnesium (04/06/2022 7:20 PM EDT) athologist Signature Magnesium 0.63 (L) 0.69 - 1.07 [facility] mmol/L [facility] Specimen Anatomical Collection Method Collection Time Receive d Time (Source) Location / / Volume Laterality Blood 04/06/2022 7:20 PM 2 7:24 EDT PM EDT Resulting Agency Comment Spec In Lab Kimberli Armas MD CHEMISTRY ORDERABLES Performing Organization Address City/[facility]/ZIP [facility] [place] [address] (ABNORMAL) Basic Metabolic Panel (non-fasting) (04/06/2022 7:20 PM EDT) P athologist Signature Glucose Lvl 102 65 - 199 [facility] mg/dL [facility] Comment: Diabetes: >=200 mg/dL plus symp toms BUN 8 (L) 10 - 20 mg/dL [facility] Creatinine 0.84 0.80 - 1.50 mg/dL [facility] Sodium 142 135 - 145 mmol/L [facility] Potassium 4.1 3.5 - 5.0 mmol/L [facility] Comment: Please note: ??Patients with WBC >100,00 0 may have falsely elevated Potassium levels. ??For accurate Potassium quantif ication in these patients send serum separator tube (gold top) for subsequent determinations. ??Contact the Clinical Chemistry Laboratory if there are any qu estions. Chloride 102 98 - 107 mmol/L [facility] CO2 29 22 - 31 mmol/L [facility] Anion Gap 11 5 - 15 mmol/L [facility] Calcium 7.7 (L) 8.5 - 10.5 mg/dL [facility] Estimated GFR 122 >=60 mL/min/1.73 m?? [facility] Comment: This patient's estimated GFR [...] (Source) Location / / Volume Laterality Blood 04/06/2022 7:20 PM 7:24 EDT PM EDT Resulting Agency Comment Spec In Lab Kimberli Armas MD CHEMISTRY ORDERABLES Performing Organization Address City/State/ZIP [place] [address] documented in this encounter Visit Diagnoses Diagnosis Hypocalcemia - Primary Chest pain, unspecified type documented in this encounter Admitting Diagnoses Diagnosis Hypocalcemia documented in this encounter Administered Medications Inactive Administered Medications - up to 3 most recent administrations Medication Order MAR Action Action Date Dose Rate Site acetaminophen (Tylenol) tablet Given 04/12/2022 12:55 PM EDT 650 mg 650 mg 650 mg, Oral, EVERY 6 HOURS PRN, Starting on 04/08/22 at 2008, Until Fri04/12/22 at 1508, Pain, Maximum dose of acetaminophen is 4000 mg from all sources in 24 hours. When ordered for pain, acetaminophen should be given even when other ordered pain medications are indicated. , Routine Given 04/10/2022 5:51 PM EDT 650 mg Given 04/08/2022 8:19 PM EDT 650 mg acetaminophen (Tylenol) tablet 975 mg Given 04/15/2022 1:36 PM EDT 975 mg 975 mg, Oral, EVERY 6 HOURS SCHEDULED, First dose (after last modification) on Fri04/12/22 at 1800, Until Discontinued, Maximum dose of acetaminophen is 4000 mg from all sources in 24 hours. When ordered for pain, acetaminophen should be given even when other ordered pain medications are indicated. , Routine Given 04/14/2022 5:51 PM EDT 975 mg Given 04/14/2022 11:44 AM EDT 975 mg amoxicillin-clavulanate (Augmentin) 875-125 Given 03/18 8:16 AM EDT 1 tablet mg per tablet 1 tablet 1 tablet, Oral, 2 TIMES DAILY, First dose on Fri04/12/22 at 1600, Until Discontinued, Routine, Indication for (Active or Suspected): Other (See comment) Given 04/14/2022 9:06 PM EDT 1 tablet Given 04/14/2022 8:21 AM EDT 1 tablet busPIRone (Buspar) tablet 20 mg Given 04/15/2022 2:20 PM EDT 20 mg 20 mg, Oral, 3 TIMES DAILY, First dose on Fri04/07/22 at 0900, Until Discontinued, Routine Given 04/15/2022 8:17 AM EDT 20 mg Given 04/14/2022 9:05 PM EDT 20 mg calciTRIoL (Rocaltrol) capsule 0.5 mcg Given 04/14/2022 8:23 AM EDT 0.5 mcg 0.5 mcg, Oral, 2 TIMES DAILY, First dose (after last modification) on Fri04/12/22 at 2100, Until Discontinued, Routine Given 04/13/2022 9:03 PM EDT 0.5 mcg Given 04/13/2022 9:14 AM EDT 0.5 mcg calciTRIoL (Rocaltrol) capsule 0.5 mcg Given 04/14/2022 12:35 PM EDT 0.5 mcg 0.5 mcg, Oral, ONCE, 1 dose, On 04/14/22 at 1230, Routine calciTRIoL (Rocaltrol) capsule 1 mcg Given 04/12/2022 8:57 AM EDT 1 mcg 1 mcg, Oral, 2 TIMES DAILY, First dose on 04/06/22 at 2300, Until Discontinued, Routine Given 04/11/2022 9:45 PM EDT 1 mcg Given 04/11/2022 9:39 AM EDT 1 mcg calciTRIoL (Rocaltrol) capsule 1 mcg Given 04/15/2022 8:16 AM EDT 1 mcg 1 mcg, Oral, 2 TIMES DAILY, First dose (after last modification) on 04/14/22 at 2100, Until Discontinued, Routine Given 04/14/2022 9:08 PM EDT 1 mcg calcium carbonate (Tums) chewable tablet Given 04/09/2022 11 :12 AM EDT 1,500 mg 1,500 mg 1,500 mg, Oral, EVERY 4 HOURS, First dose (after last modification) on 04/08/22 at 1330, Until Discontinued, Routine Given 04/09/2022 8:49 AM EDT 1,500 mg Given 04/09/2022 3:44 AM EDT 1,500 mg calcium carbonate (Tums) chewable tablet Given 04/08/2022 8:40 A M EDT 2,000 mg 2,000 mg 2,000 mg, Oral, 4 TIMES DAILY, First dose (after last modification) on 04/06/22 at 2321, Until Discontinued, Routine Given 04/07/2022 8:23 PM EDT 2,000 mg Given 04/07/2022 4:28 PM EDT 2,000 mg calcium carbonate (Tums) chewable tablet Given 04/10/2022 3:38 P M EDT 2,000 mg 2,000 mg 2,000 mg, Oral, EVERY 4 HOURS, First dose (after last modification) on 04/09/22 at 1600, Until Discontinued, Routine Given 04/10/2022 12:45 PM EDT 2,000 mg Given 04/10/2022 8:42 AM EDT 2,000 mg calcium carbonate (Tums) chewable tablet Given 04/15/2022 2:19 P M EDT 2,000 mg 2,000 mg 2,000 mg, Oral, 5 TIMES DAILY, First dose (after last modification) on Julianna 04/11/22 at 0700, Until Discontinued, Routine Given 04/15/2022 12:03 PM EDT 2,000 mg Given 04/15/2022 8:15 AM EDT 2,000 mg calcium carbonate (Tums) chewable tablet Given 04/15/2022 9:43 A M EDT 2,000 mg 2,000 mg 2,000 mg, Oral, ONCE, 1 dose, On 04/15/22 at 1030, Routine calcium gluconate 1g in sodium New Bag 04/06/2022 10:44 PM EDT 1 g 50 mL/hr chloride 0.9% 50mL 1 g, Intravenous, EVERY HOUR, 2 doses, First dose on 04/06/22 at 2100, Last dose on 04/06/22 at 2200, Administer over 60 Minutes, After his initial IV calcium lab is drawn Warning Vesicant/Irritant Medication New Bag 04/06/2022 9:54 PM EDT 1 g 50 mL/hr calcium gluconate 1g in sodium chloride New Bag 04/07/2022 8:0 0 AM EDT 1 g 50 mL/hr 0.9% 50mL 1 g, Intravenous, EVERY HOUR, 2 doses, First dose (after last reorder) on 04/07/22 at 0700, Last dose on 04/07/22 at 0800, Administer over 60 Minutes, After his initial IV calcium lab is drawn Warning Vesicant/Irritant Medication New Bag 04/07/2022 7:02 AM EDT 1 g 50 mL/hr calcium gluconate 1g in sodium chloride New Bag 04/14/2022 8:3 4 AM EDT 1 g 50 mL/hr 0.9% 50mL 1 g, Intravenous, ONCE, 1 dose, On 04/14/22 at 0915, Administer over 60 Minutes, Warning Vesicant/Irritant Medication cloNIDine (Catapres) tablet 0.1 mg Given 04/13/2022 9:14 AM EDT 0.1 mg 0.1 mg, Oral, DAILY, First dose on 04/07/22 at 0900, Until Discontinued, Routine Given 04/08/2022 8:42 AM EDT 0.1 mg cyclobenzaprine (Flexeril) tablet 10 mg Given 04/15/2022 10:44 AM EDT 10 mg 10 mg, Oral, 3 TIMES DAILY PRN, Starting on Fri04/12/22 at 1503, Until 04/15/22 at 1653, Muscle spasms, Routine Given 04/14/2022 11:44 AM EDT 10 mg Given 04/13/2022 3:59 PM EDT 10 mg diclofenac (Voltaren) gel Given 04/15/2022 8:18 AM EDT 4 g Topical (Top), 4 TIMES DAILY, First dose on Fri04/12/22 at 1700, Until Discontinued, Apply topically to back . Total dose not to exceed 32 grams per day over all affected joints. Doses should be measured using the dosing cards supplied with the product., Where is this medication being applied? Please also specify in administration instructions. Other, Dose of medication being applied? 4 gram dose Given 04/14/2022 9:06 PM EDT 2 g Given 04/14/2022 2:42 PM EDT 4 g diphenhydrAMINE (Benadryl) capsule 25 mg Given 04/12/2022 12:49 PM EDT 25 mg 25 mg, Oral, EVERY 4 HOURS PRN, Starting on Julianna 04/11/22 at 1334, Until 04/15/22 at 1653, Itching, Routine Given 04/11/2022 1:43 PM EDT 25 mg docusate sodium (Colace) capsule 100 mg Given 04/15/2022 8:17 AM EDT 100 mg 100 mg, Oral, DAILY, First dose on 04/07/22 at 0900, Until Discontinued, Routine Given 04/14/2022 8:21 AM EDT 100 mg Given 04/13/2022 9:13 AM EDT 100 mg enoxaparin (Lovenox) (40 mg/0.4 mL) Given 04/11/2022 9:48 PM EDT 40 mg subcutaneous injection 40 mg 40 mg, Subcutaneous, NIGHTLY, First dose on 04/07/22 at 2100, Until Discontinued, Routine Given 04/10/2022 9:36 PM EDT 40 mg Given 04/09/2022 9:44 PM EDT 40 mg ergocalciferoL (vitamin D2) (vitamin Given 04/12/2022 8:58 AM ED T 50,000 Units D2) capsule 50,000 Units 50,000 Units, Oral, DAILY, 7 doses, First dose on Fri04/09/22 at 1300, Last dose on Fri04/15/22 at 0900, Routine Given 04/11/2022 9:43 AM EDT 50,000 Units Given 04/10/2022 8:42 AM EDT 50,000 Units ergocalciferoL (vitamin D2) (vitamin Given 04/13/2022 9:14 AM ED T 50,000 Units D2) capsule 50,000 Units 50,000 Units, Oral, WEEKLY, First dose (after last modification) on 04/13/22 at 0900, Until Discontinued, Routine famotidine (Pepcid) tablet 20 mg Given 04/15/2022 8:15 AM EDT 20 mg 20 mg, Oral, 2 TIMES DAILY, First dose on 04/07/22 at 0900, Until Discontinued, Routine Given 04/14/2022 9:05 PM EDT 20 mg Given 04/14/2022 8:22 AM EDT 20 mg FLUoxetine (PROzac) capsule 60 mg Given 04/13/2022 9:13 AM EDT 60 mg 60 mg, Oral, DAILY, First dose on 04/07/22 at 0900, Until Discontinued, Routine Given 04/08/2022 8:41 AM EDT 60 mg gabapentin (Neurontin) capsule 600 mg Given 04/07/2022 9:26 AM EDT 600 mg 600 mg, Oral, DAILY, First dose on 04/07/22 at 0900, Until Discontinued, Routine gabapentin (Neurontin) capsule 600 mg Given 04/15/2022 2:20 PM EDT 600 mg 600 mg, Oral, 3 TIMES DAILY, First dose (after last modification) on 04/07/22 at 1500, Until Discontinued, Routine Given 04/15/2022 8:16 AM EDT 600 mg Given 04/14/2022 9:06 PM EDT 600 mg hydrocortisone 1 % cream Given 04/12/2022 5:35 PM EDT Topical (Top), 3 TIMES DAILY PRN, itching, Starting on Fri04/12/22 at 1511, Until Fri04/15/22 at 1653, Application Site: itching or rash ketorolac (Toradol) (30 mg/mL) injection 30 mg Given 04/14/2022 4:34 PM EDT 30 mg 30 mg, Intravenous, EVERY 6 HOURS PRN, Starting on Fri04/12/22 at 1509, Until Fri04/15/22 at 1653, Pain, Routine Given 04/14/2022 9:47 AM EDT 30 mg Given 04/13/2022 10:04 PM EDT 30 mg LORazepam (Ativan) tablet 1 mg Given 04/15/2022 12:32 PM EDT 1 mg 1 mg, Oral, EVERY 8 HOURS PRN, Starting on Fri04/07/22 at 1600, Until Fri04/15/22 at 1653, Anxiety, Routine Given 04/14/2022 9:05 PM EDT 1 mg Given 04/14/2022 12:35 PM EDT 1 mg magnesium oxide (Mag-Ox) tablet 400 mg Given 04/08/2022 8:42 AM EDT 400 mg 400 mg, Oral, 2 TIMES DAILY, First dose on Fri04/07/22 at 1154, Until Discontinued, Routine Given 04/07/2022 8:24 PM EDT 400 mg Given 04/07/2022 12:11 PM EDT 400 mg magnesium oxide (Mag-Ox) tablet 400 mg Given 04/13/2022 9:03 PM EDT 400 mg 400 mg, Oral, 3 TIMES DAILY, First dose (after last modification) on Fri04/08/22 at 1500, Until Discontinued, Routine Given 04/13/2022 3:59 PM EDT 400 mg Given 04/13/2022 9:14 AM EDT 400 mg magnesium oxide (Mag-Ox) tablet 400 mg Given 04/15/2022 2:20 PM EDT 400 mg 400 mg, Oral, 4 TIMES DAILY, First dose (after last modification) on Fri04/14/22 at 0900, Until Discontinued, Routine Given 04/15/2022 8:16 AM EDT 400 mg Given 04/14/2022 9:06 PM EDT 400 mg magnesium sulfate 1 g in dextrose 5% New Bag 04/06/2022 10:00 PM EDT 1 g 100 mL/hr 100 mL infusion 1 g, Intravenous, ONCE, 1 dose, On Fri04/06/22 at 2002, Administer over 60 Minutes magnesium sulfate 2 g in sterile water New Bag 04/06/2022 11:5 3 PM EDT 2 g 25 mL/hr 50 mL infusion 2 g, Intravenous, ONCE, 1 dose, On Fri04/06/22 at 2319, Administer over 120 Minutes magnesium sulfate 2 g in sterile water New Bag 04/07/2022 6:57 AM EDT 2 g 25 mL/hr 50 mL infusion 2 g, Intravenous, ONCE, 1 dose, On Fri04/07/22 at 0652, Administer over 120 Minutes magnesium sulfate 2 g in sterile water New Bag 04/08/2022 9:30 AM EDT 2 g 25 mL/hr 50 mL infusion 2 g, Intravenous, ONCE, 1 dose, On Fri04/08/22 at 0945, Administer over 120 Minutes magnesium sulfate 2 g in sterile water New Bag 04/08/2022 8:22 PM EDT 2 g 25 mL/hr 50 mL infusion 2 g, Intravenous, ONCE, 1 dose, On Fri04/08/22 at 2045, Administer over 120 Minutes magnesium sulfate 2 g in sterile water New Bag 04/10/2022 5:57 PM EDT 2 g 25 mL/hr 50 mL infusion 2 g, Intravenous, ONCE, 1 dose, On Fri04/10/22 at 1830, Administer over 120 Minutes magnesium sulfate 2 g in sterile water New Bag 04/12/2022 12:0 4 PM EDT 2 g 25 mL/hr 50 mL infusion 2 g, Intravenous, EVERY 2 HOURS, 2 doses, First dose on Fri04/12/22 at 1015, Last dose on Fri04/12/22 at 1215, Administer over 120 Minutes New 04/12/2022 9:51 AM EDT 2 g 25 mL/hr magnesium sulfate 2 g in sterile water New Bag 04/14/2022 11:4 5 AM EDT 2 g 25 mL/hr 50 mL infusion 2 g, Intravenous, EVERY 2 HOURS, 2 doses, First dose (after last modification) on Fri04/14/22 at 0915, Last dose on Fri04/14/22 at 1115, Administer over 120 Minutes New Bag 04/14/2022 8:29 AM EDT 2 g 25 mL/hr magnesium sulfate 2 g in sterile water New Bag 04/15/2022 9:27 AM EDT 2 g 25 mL/hr 50 mL infusion 2 g, Intravenous, ONCE, 1 dose, On Fri04/15/22 at 0900, Administer over 120 Minutes methadone (Dolophine) (10 mg/mL) oral liquid Given 8:15 AM EDT 110 mg 110 mg 110 mg, Oral, DAILY, First dose (after last modification) on 04/07/22 at 0911, Until Discontinued, Liquid methadone should be used to avoid diversion, and a mouth check should be performed after each dose. Unable to verify date or dose at this time due to clinic being closed. Clinic is open Friday through Friday, Routine, Name of patient's Methadone clinic? [facility], Methadone clinic phone: , Date last Methadone dose was given at the Outpatient Clinic? 04/06/2022, Dose of Methadone provided at the clinic? 110mg Given 04/14/2022 8:23 AM EDT 110 mg Given 04/13/2022 9:14 AM EDT 110 mg phenoL 1.4% (Chloraseptic) spray 1 spray 1 spray, Oral, EVERY 2 HOURS PRN, Starting on 03/17 at 2136, Until Fri04/15/22 at 1653, Irritation, Routine senna-docusate (Pericolace) 8.6-50 mg per Given 2021 8:17 AM EDT 2 tablets tablet 2 tablet 2 tablet, Oral, 2 TIMES DAILY, First dose (after last modification) on Fri04/07/22 at 2100, Until Discontinued, Routine Given 04/14/2022 9:06 PM EDT 2 tablets Given 04/14/2022 8:22 AM EDT 2 tablets sodium chloride 0.9 % (flush) (BD PosiFlush Given 04/15/2022 8:1 7 AM EDT 5 mLs Normal Saline 0.9) flush 5 mL 5 mL, Intravenous, 2 TIMES DAILY, First dose on 04/07/22 at 0102, Until Discontinued, Routine Given 04/14/2022 9:06 PM EDT 5 mLs Given 04/14/2022 9:00 AM EDT 5 mLs sodium chloride 0.9% 1,000 mL with New Bag 04/08/2022 2:41 PM EDT 50 mL/hr calcium gluconate 11 g infusion at 50 mL/hr, Intravenous, ONCE, 1 dose, On Fri04/08/22 at 1330 sodium chloride 0.9% 1,000 mL Rate/Dose Change 04/08/2022 8:01 PM EDT 75 mL/hr with calcium gluconate 11 g infusion at 75 mL/hr, Intravenous, CONTINUOUS, Starting on Fri04/08/22 at 2045, Until Fri04/09/22 at 0250 sodium chloride 0.9% 1,000 mL Rate/Dose Change 04/09/2022 2:43 PM EDT 50 mL/hr with calcium gluconate 11 g infusion at 50 mL/hr, Intravenous, CONTINUOUS, Starting on Fri04/09/22 at 1300, Until Fri04/09/22 at 1522 New Bag 04/09/2022 1:34 PM EDT 75 mL/hr teriparatide PnIj 20 mcg Given 04/11/2022 9:00 AM EDT 20 mcg 20 mcg, Subcutaneous, 2 TIMES DAILY, First dose on Fri04/10/22 at 0900, Until Discontinued, Use 31G pen needles supplied with medication and use paper guidance document for administration instructions Per endocrine refractory hypocalcemia teriparatide PnIj 20 mcg Given 04/13/2022 12:15 PM EDT 20 mcg 20 mcg, Subcutaneous, 2 TIMES DAILY, First dose (after last modification) on Fri04/12/22 at 0900, Until Discontinued, Use 31G pen needles supplied with medication and use paper guidance document for administration instructions Per endocrine refractory hypocalcemia Given 04/12/2022 9:52 AM EDT 20 mcg traZODone (Desyrel) tablet 100 mg Given 04/14/2022 9:06 PM EDT 100 mg 100 mg, Oral, NIGHTLY, First dose on 04/07/22 at 2130, Until Discontinued, Routine Given 04/13/2022 9:02 PM EDT 100 mg Given 04/12/2022 9:17 PM EDT 100 mg documented in this encounter Active and Recently Administered Medications Times are shown in EDT. Scheduled Medication Order 04/13/2022 04/14/2022 04/15/2022 acetaminophen (Tylenol) tablet 975 mg 0000 (Not Given - Provider: Jodi Little RN - Reason: See comment - Comment: pt sleeping)0638 (Given - Provider: Jodi Little RN)1110 (Given - Provider: Lion Gaona RN)1629 (Given - Provider: Lion Gaona RN) 0000 (Not Given - Provider: Jodi Little RN - Reason: See comment - Comment: see previous admin @2203)0623 (Given - Provider: Jodi Little RN)1144 (Given - Provider: Kuldeep Su RN)1751 (Given - Provider: Kuldeep Su RN) 0000 (Not Given - Provider: John Barraza RN - Reason: Patient/family refused)0600 (Not Given - Provider: Roxanne Layne RN - Reason: Patient/family refused)1336 (Given - Provider: Nicolasa Mckeon RN) 975 mg, Oral, EVERY 6 HOURS SCHEDULED, F irst dose (after last modification) on Fri04/12/22 at 1800, Until Discontinued, Maximum dose of acetaminophen is 4000 mg from all sources in 24 hours. When order 1800 (Not Given - Provider: Lion Gaona RN - Reason: See comment - Comment: med given early)2203 (Given - Provider: Whitney Kincaid RN) ed for pain, acetaminophen should be giv en even when other ordered pain medications are indicated. , Routine amoxicillin-clavulanate (Augmentin) 875-125 mg per tab let 1 tablet 0913 (Given - Provider: Lion Gaona RN)210 (Given - Provider: oJdi Little RN) 0821 (Given - Provider: Kuldeep Su RN)210 (Given - Provider: John Barraza, SHWETHA) 0816 (Given - Provider: Roxanne Layne, SHWETHA) 1 tablet, Oral, 2 TIMES DAILY, First dos e on Fri04/12/22 at 1600, Until Discontinued, Routine, Indication for (Active or Suspected): Other (See comment) busPIRone (Buspar) tablet 20 mg 0913 (Given - Provider : Lion Gaona RN)1559 (Given - Provider: Lion Gaona RN)2102 (Given - Provider: Jodi Little RN) 0822 (Given - Provider: Kuldeep Su RN)1441 (Given - Provider: Kuldeep Su RN)2105 (Given - Provider: John Barraza RN) 0817 (Given - Provider: Roxanne Layne RN)1420 (Given - Provider: Roxanne Layne RN) 20 mg, Oral, 3 TIMES DAILY, First dose o n 04/07/22 at 0900, Until Discontinued, Routine calciTRIoL (Rocaltrol) capsule 0.5 mcg (CANCELED) 0914 (Given - Provider: Lion Gaona RN)2103 (Given - Provider: Jodi Little RN) 0823 (Given - Provider: Kuldeep Su RN) 0.5 mcg, Oral, 2 TIMES DAILY, First dose (after last modification) on Fri04/12/22 at 2100, Until Discontinued, Routine calciTRIoL (Rocaltrol) capsule 0.5 mcg (COMPLETED) 1235 (Given - Provider: Kuldeep Su RN) 0.5 mcg, Oral, ONCE, 1 dose, On 04/14/22 at 1230, Routine calciTRIoL (Rocaltrol) capsule 1 mcg 210 8 (Given - Provider: John Barraza RN) 0816 (Given - Provider: Roxanne Layne RN) 1 mcg, Oral, 2 TIMES DAILY, First dose ( after last modification) on 04/14/22 at 2100, Until Discontinued, Routine calcium carbonate (Tums) chewable tablet 2,000 mg 0640 (Given - Provider: Jodi Little RN)1110 (Given - Provider: Lion Gaona RN)1558 (Given - Provider: Lion Gaona RN)1809 (Given - Provider: Lion Gaona RN)2104 (Given - Provider: Jodi Little RN) 0624 (Given - Provider: Jodi Little RN)1100 (Given - Provider: Kuldeep uS RN)1351 (Given - Provider: Kuldeep Su RN)1751 (Given - Provider: Kuldeep Su RN)2105 (Given - Provider: John Barraza RN) 0815 (Given - Provider: Roxanne Layne RN)1203 (Given - Provider: Roxanne Layne RN)1419 (Given - Provider: Roxanne Layne RN) 2,000 mg, Oral, 5 TIMES DAILY, First dos e (after last modification) on Julianna 04/11/22 at 0700, Until Discontinued, Routine calcium carbonate (Tums) chewable tablet 2,000 mg (COMPLETED) 0943 (Given - Provider: Roxanne Layne RN) 2,000 mg, Oral, ONCE, 1 dose, On 04/15/22 at 1030, Routine calcium gluconate 1g in sodium chloride 0.9% 50mL (COMPLETED ) 0834 (New Bag - Provider: Kuldeep Su RN)0934 (Stopped - Provider: Kuldeep Su RN) 1 g, Intravenous, ONCE, 1 dose, On Sun 1 at 0915, Administer over 60 Minutes, Warning Vesicant/Irritant Medication cloNIDine (Catapres) tablet 0.1 mg (CANCELED) 0914 (Gi adam - Provider: Lion Gaona RN) 0822 (Not Given - Provider: Kuldeep lock RN - Reason: Contraindicated) 0815 (Not Given - Provider: Roxanne wiggins RN - Reason: Patient/family refused) 0.1 mg, Oral, DAILY, First dose on Sun 1 at 0900, Until Discontinued, Routine diclofenac (Voltaren) gel 0900 (Not Given - Provider: Lion Gaona RN - Reason: Patient/family refused)1300 (Not Given - Provider: Lion Gaona RN - Reason: Patient/family refused)1700 (Not Given - Provider: Lion Gaona RN - Reason: Patient/family refused) 0900 (Not Given - Provider: Kuldeep lock RN - Reason: Patient/family refused)1300 (Not Given - Provider: Kuldeep Su RN - Reason: Patient/family refused)1442 (Given - Provider: Kuldeep Su RN) 0818 (Given - Provider: Roxanne Layne RN)1300 (Due) Topical (Top), 4 TIMES DAILY, First dose on Fri04/12/22 at 1700, Until Discontinued, Apply topically to back . Total dose not to exceed 32 grams per day over all affected joints. Doses should be measur 2100 (Not Given - Provider: Jodi Little RN - Reason: Patient/family refused) 170 (Not Given - Provider: Kuldeep Su RN - Reason: Patient/family refused)2105 (Given - Provider: John Barraza, SHWETHA) ed using the dosing cards supplied with the product., Where is this medication being applied? Please also specify in administration instructions. Other, Dose of medication being applied? 4 gram dose docusate sodium (Colace) capsule 100 mg 09 (Given - Provider: Lion Gaona RN) 08 (Given - Provider: Kuldeep Su RN) 816 (Giv en - Provider: Roxanne Layne RN) 100 mg, Oral, DAILY, First dose on Sun 1 at 0900, Until Discontinued, Routine enoxaparin (Lovenox) (40 mg/0.4 mL) subcutaneous injec tion 40 mg 2100 (Not Given - Provider: Jodi Little RN - Reason: Patient/family refused) 2099 (Not Given - Provider: John Barraza RN - Reason: Patient/family refused) 40 mg, Subcutaneous, NIGHTLY, First dose on 04/07/22 at 2100, Until Discontinued, Routine ergocalciferoL (vitamin D2) (vitamin D2) capsule 50,00 0 Units 913 (Given - Provider: Lion Gaona RN) 50,000 Units, Oral, WEEKLY, First dose ( after last modification) on 04/13/22 at 0900, Until Discontinued, Routine famotidine (Pepcid) tablet 20 mg 917 (Given - Provide r: Lion Gaona RN)2102 (Given - Provider: Jodi Little RN) 821 (Given - Provider: Kuldeep Su RN)2104 (Given - Provider: John Barraza, SHWETHA) 814 (Given - Provider: Roxanne Layne RN) 20 mg, Oral, 2 TIMES DAILY, First dose o n 04/07/22 at 0900, Until Discontinued, Routine FLUoxetine (PROzac) capsule 60 mg 912 (Given - Provider: Arabella Gaona RN) 0822 (Not Given - Provider: Kuldeep Su RN - Reason: Patient/family refused) 0815 (Not Given - Provider: Roxanne wiggins RN - Reason: Patient/family refused) 60 mg, Oral, DAILY, First dose on Fri at 0900, Until Discontinued, Routine gabapentin (Neurontin) capsule 600 mg 0913 (Given - Pr ovider: Lion Gaona RN)1559 (Given - Provider: Lion Gaona RN)2103 (Given - Provider: Jodi Little RN) 0821 (Given - Provider: Kuldeep Su RN)1441 (Given - Provider: Kuldeep Su RN)210 (Given - Provider: John Barraza RN) 0816 (Given - Provider: Roxanne Layne RN)1420 (Given - Provider: Roxanne Layne RN) 600 mg, Oral, 3 TIMES DAILY, First dose (after last modification) on Fri04/07/22 at 1500, Until Discontinued, Routine magnesium oxide (Mag-Ox) tablet 400 mg (CANCELED) 0914 (Given - Provider: Lion Gaona RN)1559 (Given - Provider: Lion Gaona RN)2103 (Given - Provider: Jodi Little RN) 400 mg, Oral, 3 TIMES DAILY, First dose (after last modification) on Fri04/08/22 at 1500, Until Discontinued, Routine magnesium oxide (Mag-Ox) tablet 400 mg 0 822 (Given - Provider: Kuldeep Su RN)1235 (Given - Provider: Kuldeep Su RN)1634 (Given - Provider: Kuldeep Su RN)2106 (Given - Provider: John Barraza RN) 0816 (Given - Provider: Roxanne Layne RN)1420 (Given - Provider: Roxanne Layne RN) 400 mg, Oral, 4 TIMES DAILY, First dose (after last modification) on Fri04/14/22 at 0900, Until Discontinued, Routine magnesium sulfate 2 g in sterile water 50 mL infusion (COMPL ETED) 0829 (New Bag - Provider: Kuldeep Su RN)1029 (Stopped - Provider: Kuldeep Su RN)1145 (New Bag - Provider: Kuldeep Su RN)1345 (Stopped - Provider: Kuldeep Su RN) 2 g, Intravenous, EVERY 2 HOURS, 2 doses , First dose (after last modification) on 04/14/22 at 0915, Last dose on 04/14/22 at 1115, Administer over 120 Minutes magnesium sulfate 2 g in sterile water 50 mL infusion (COMPLETED ) 926 (New Bag - Provider: Roxanne Layne, RN)112 (Stopped - Provider: Roxanne Layne RN) 2 g, Intravenous, ONCE, 1 dose, On Fri at 0900, Administer over 120 Minutes methadone (Dolophine) (10 mg/mL) oral liquid 110 mg 09 (Given - Provider: Lion Gaona RN) 08 (Given - Provider: Kuldeep Su RN) 0815 (Giv en - Provider: Roxanne Layne RN) 110 mg, Oral, DAILY, First dose (after l ast modification) on 04/07/22 at 0911, Until Discontinued, Liquid methadone should be used to avoid diversion, and a mouth check should be performed after eac h dose. Unable to verify date or dose at this time due to clinic being closed. Clinic is open Friday through Friday, Routine, [facility] , Date las t Methadone dose was given at the Outpatient Clinic? 04/06/2022, Dose of Methadone provided at the clinic? 110mg senna-docusate (Pericolace) 8.6-50 mg per tablet 2 tab let 09 (Given - Provider: Lion Gaona RN)2100 (Not Given - Provider: Jodi Little RN - Reason: Patient/family refused) 821 (Given - Provider: Kuldeep Su RN)2105 (Given - Provider: John Barraza RN) 816 (Given - Provider: Roxanne Layne RN) 2 tablet, Oral, 2 TIMES DAILY, First dos e (after last modification) on 04/07/22 at 2100, Until Discontinued, Routine sodium chloride 0.9 % (flush) (BD PosiFlush Normal Alfonso ine 0.9) flush 5 mL 09 (Given - Provider: Lion Gaona RN)2104 (Given - Provider: Jodi Little, SHWETHA) 0900 (Given - Provider: Kuldeep Su RN)2105 (Given - Provider: John Barraza, SHWETHA) 0817 (Given - Provider: Roxanne Layne, RN) 5 mL, Intravenous, 2 TIMES DAILY, First dose on Fri04/07/22 at 0102, Until Discontinued, Routine teriparatide PnIj 20 mcg (CANCELED) 0900 (Not Given - Provider: Lion Gaona RN - Reason: Patient/family refused)1215 (Given - Provider: Lion Gaona RN - Comment: given per endo ) 20 mcg, Subcutaneous, 2 TIMES DAILY, Fir st dose (after last modification) on Fri04/12/22 at 0900, Until Discontinued, Use 31G pen needles supplied with medication and use paper guidance document for ad ministration instructions Per endocrine refractory hypocalcemia traZODone (Desyrel) tablet 100 mg 2101 (Given - Provid er: Jodi Little RN) 2105 (Given - Provider: John Barraza RN) 100 mg, Oral, NIGHTLY, First dose on Fri04/07/22 at 2130, Until Discontinued, Routine PRN Medication Order 04/13/2022 04/14/2022 04/15/2022 cyclobenzaprine (Flexeril) tablet 10 mg 1134 (Given - Provider: Malika Cuellar LPN)1559 (Given - Provider: Lion Gaona RN) 1144 (Given - Provider: Kuldeep Su RN) 1044 (Given - Provider: Roxanne Layne RN) 10 mg, Oral, 3 TIMES DAILY PRN, Starting on Fri04/12/22 at 1503, Until Fri04/15/22 at 1653, Muscle spasms, Routine diphenhydrAMINE (Benadryl) capsule 25 mg 25 mg, Oral, EVERY 4 HOURS PRN, Starting on Julianna 04/11/22 at 1334, Until 04/15/22 at 1653, Itching, Routine hydrocortisone 1 % cream Topical (Top), 3 TIMES DAILY PRN, itchin g, Starting on Fri04/12/22 at 1511, Until Fri04/15/22 at 1653, Application Site: itching or rash ketorolac (Toradol) (30 mg/mL) injection 30 mg 1353 (Veronica muñoz - Provider: Lion Gaona RN)2204 (Given - Provider: Whitney Kincaid RN) 0947 (Given - Provider: Kuldeep Su RN)1634 (Given - Provider: Kuldeep Su RN) 30 mg, Intravenous, EVERY 6 HOURS PRN, S tarting on Fri04/12/22 at 1509, Until Fri04/15/22 at 1653, Pain, Routine lidocaine (Xylocaine) 1% (10 mg/mL) injection 3 mg 3 mg (0.3 mL), Subcutaneous, ONCE PRN, 1 dose, Starting on Fri04/07/22 at 0100, Until Fri04/15/22 at 1653, for discomfort with PIV insertion, Routine LORazepam (Ativan) tablet 1 mg 2225 (Given - Provider: Zoë Little RN) 1235 (Given - Provider: Kuldeep Su RN)210 (Given - Provider: John Barraza RN) 1232 (Given - Provider: Roxanne Layne RN) 1 mg, Oral, EVERY 8 HOURS PRN, Starting on Fri04/07/22 at 1600, Until Fri04/15/22 at 1653, Anxiety, Routine phenoL 1.4% (Chloraseptic) spray 1 spray 1 spray, Oral, EVERY 2 HOURS PRN, Starti ng on Fri04/10/22 at 2136, Until Fri04/15/22 at 1653, Irritation, Routine sodium chloride 0.9 % (flush) (BD PosiFlush Normal Saline 0.9) f lush 5-20 mL 5-20 mL, Intravenous, EVERY 1 MIN PRN, S tarting on Fri04/07/22 at 0100, Until Fri04/15/22 at 1653, flush, Flush pertains to all indwelling lines. Flush per protocol found in the job aid using the link provided on this medication record., Routine documented in this encounter Additional Health Concerns Infection Onset Date Last Indicated Resolved Time Rule Out COVID-19 04/11/2022 04/11/2022 04/11/2022 8:5 5 PM EDT documented as of this encounter Care Teams Lead Cook Relationship Specialty Start Date End Date Brendon Vivar DO PCP - General Family Medicine 04/12/[address] [place] [id number] documented as of this encounter
--- OUTSIDE RECORDS SUMMARY | 2022-04-18 14:12 | XMS_ITS | Clinical Summary ---
:1995 Author Organization [facility] [place] [address] Care Team Providers Name Role Phone Brendon Vivar Dex AVILA Primary Care Provider Allergies Active Allergy Reactions Severity Noted Date Comments Codeine 02/21/2022 Tightening of c hest, wheezing Morphine Other (See Comments) 07/18/2012 unknown Medications Medication Sig Dispensed Refills Start Date End Date Status busPIRone (Buspar) 10 Take 2 tablets 0 02/08/2022 Active mg Tablet by mouth 3 times daily. gabapentin Take 600 mg by 0 02/07/2022 Act alvarez (NEURONTIN) 600 mg mouth 3 times Tablet daily. methadone (Dolophine) Take 110 mg by 0 Active 10 mg/mL Concentrate mouth every morning. Senna 8.6 mg Tablet Take 2 tablets 0 02/07/2022 Active by mouth nightly. calcium carbonate Take 4 tablets 360 tablet 3 04/15/2022 Active (Tums) 200 mg calcium by mouth 5 times (500 mg) Tablet, daily. Chewable ergocalciferoL, Take 1 capsule 4 capsule 1 04/20/2022 Active vitamin D2, (vitamin by mouth once a D2) 50,000 unit week. Capsule senna-docusate Take 2 tablets 60 tablet 11 04/15/2022 Active (Pericolace) 8.6-50 by mouth 2 times mg Tablet daily. calciTRIoL Take 2 capsules 120 capsule 1 04/15/2022 Active (Rocaltrol) 0.5 mcg by mouth 2 times Capsule daily. magnesium oxide Take 1 tablet by 30 tablet 12 04/15/2022 Active (Mag-Ox) 400 mg mouth 4 times (241.3 mg magnesium) daily. Tablet amoxicillin-clavulana Take 1 tablet by 18 tablet 0 04/15/2022 04/24/2022 Active te (Augmentin) mouth 2 times 875-125 mg Tablet daily for 9 days. cyclobenzaprine Take 1 tablet by 15 tablet 0 04/15/2022 Active (Flexeril) 10 mg mouth 3 times Tablet daily as needed for Muscle spasms. LORazepam (Ativan) 1 Take 1 tablet by 6 tablet 0 04/15/2022 Active mg Tablet mouth 3 times daily as needed. traZODone (Desyrel) Take 1 tablet by 30 tablet 0 04/15/2022 Active 100 mg Tablet mouth nightly. chlorthalidone Take 1 tablet by 90 tablet 3 04/22/2022 Active (HYGROTEN) 15 mg mouth daily. Do Tablet not start taking until after you have completed your 24 hour urine collection Active Problems Problem Noted Date Hypocalcemia 04/06/2022 Encounters Date Type Specialty Care Team Description 04/15/2022 Orders Only Endocrinology Christopher, Hypoparathyroi dism, Jose R, DO unspecified hypoparathyroid ism type 04/12/2022 Telephone Hospitalist Kimberli Bahena CMA 04/09/2022 [place] 04/[place]22 Telephone Hospitalist Kimberli Bahena [facility] 04/06/2022 Hospital Encounter [place], Hypocalce aleyda (Primary Dx); - Kirt Mosqueda MD Chest pain, unspecified type 04/15/2022 Oscar Zazueta MD Mueller, Catherine L, MD Kehas, Arthur J, MD 04/02/2022 Telephone Endocrinology Italia Sanford 03/31/2022 Telephone Endocrinology Karina Montalvo MD 03/29/2022 Telephone Endocrinology Karina Montalvo MD 03/29/2022 Telephone General Surgery Ana Escudero RN 03/28/2022 Telephone General Surgery Joan Covington APRN 03/26/2022 Anesthesia Event Surgery Hung Black MD Nguyen, Tung T, MD 03/26/2022 Surgery Surgery Sherif, PARATHYROIDECTO MY OR Siomara Chin MD EXPLORATION O F PARATHYROID(S) (WRVU 15.6) 03/26/2022 Hospital Encounter Surgery Sherif, Primary Siomara Chin MD hyperparathyr oidismally 03/18/2022 Telephone General Surgery Siomara Gorman MD 03/14/2022 Hospital Encounter Radiology RASHAD Gorman [address] Chin MD 03/12/2022 Hospital Encounter Radiology RASHAD Gorman 1 (wayne Chin MD endocrine rahel plasia) 03/12/2022 Hospital Encounter Radiology RASHAD Gorman (wayne Chin MD endocrine rahel plasia) 03/11/2022 Orders Only General Surgery RASHAD Gorman 1 syndro me Siomara Chin MD 03/11/2022 Orders Only General Surgery Siomara Gorman MD 02/26/2022 Interpretation Only Kirt Tyson PA 02/21/2022 Office Visit General Surgery RASHAD Gorman (dejuan ple Siomara Chin MD endocrine neoplasia) Joan Covington, YASSINE 02/09/2022 Hospital Encounter Radiology Santiago Carroll Lower ext remity Giuseppe garces, DO right 02/09/2022 Interpretation Only Santiago Carroll DO from Last 3 Months Social History Tobacco [...] Mass Index 29.41 04/07/2022 3:27 PM EDT Plan of Treatment Upcoming Encounters Date Type Specialty Care Team Description 04/25/2022 Laboratory Appointment Lab 04/25/2022 Office Visit General Surgery Siomara Gorman MD [facility] GENERAL SURGERY [place], [place] [address] (Wo rk) 05/14/2022 Office Visit Endocrinology Karina Montalvo MD [facility] ENDOCRINOLOGY DE PT [place], [place] [address] (Wo rk) Health Maintenance Due Date Last Done Comments Covid-19 Vaccine (#1) 04/08/1994 HIV screen 10/08/2011 Hepatitis C Screening 10/08/2011 Tdap adult 2012 Tetanus vaccine 2012 Influenza (Flu) vaccine (1 of - Influenza standard 02/14/2022 series) Procedures Procedure Name Priority Date/Time Associated Comments Diagnosis HC PHOSPHORUS, SERUM Routine 04/15/2022 4:51 Resu lts for this AM EDT procedure are i n the results section. HC MAGNESIUM, SERUM Routine 04/15/2022 4:51 Resul ts for this AM EDT procedure are i n the results section. HC VENIPUNCTURE Routine 04/15/2022 4:51 Results f or this AM EDT procedure are i n the results section. SCAN DOC: TELEMETRY 04/15/2022 4:17 Resul ts for this STRIPS AM EDT procedure are i n the results section. SCAN DOC: TELEMETRY 04/14/2022 5:28 Resul ts for this STRIPS PM EDT procedure are i n the results section. SCAN DOC: TELEMETRY 04/14/2022 5:26 Resul ts for this STRIPS PM EDT procedure are i n the results section. XR THORACIC SPINE 2 VIEWS Routine 04/14/2022 4:13 Results for this PM EDT procedure are i n the results section. XR LUMBAR SPINE 2 OR 3 Routine 04/14/2022 4:13 Re sults for this VIEWS PM EDT procedure are i n the results section. HC MAGNESIUM, SERUM Routine 04/14/2022 1:51 Resul ts for this PM EDT procedure are i n the results section. HC VENIPUNCTURE Routine 04/14/2022 1:51 Results f or this PM EDT procedure are i n the results section. SCAN DOC: TELEMETRY 04/14/2022 1:04 Resul ts for this STRIPS PM EDT procedure are i n the results section. HC VENIPUNCTURE Routine 04/14/2022 9:26 Results f or this AM EDT procedure are i n the results section. SCAN DOC: TELEMETRY 04/14/2022 6:18 Resul ts for this STRIPS AM EDT procedure are i n the results section. HC VENIPUNCTURE STAT 04/14/2022 3:17 Results f or this AM EDT procedure are i n the results section. HC PHOSPHORUS, SERUM Routine 04/14/2022 3:17 Resu lts for this AM EDT procedure are i n the results section. HC MAGNESIUM, SERUM Routine 04/14/2022 3:17 Resul ts for this AM EDT procedure are i n the results section. BASIC METABOLIC PANEL Routine 04/14/2022 3:17 Res ults for this (NON-FASTING) AM EDT procedure are in the results section. HC TROPONIN T STAT 04/13/2022 11:23 Results fo r this PM EDT procedure are i n the results section. EKG 12-LEAD STAT 04/13/2022 11:13 Chest pain, Results for this PM EDT unspecified type procedure a re in the results section. HC VENIPUNCTURE Routine 04/13/2022 5:38 Results f or this PM EDT procedure are i n the results section. SCAN DOC: TELEMETRY 04/13/2022 4:52 Resul ts for this STRIPS PM EDT procedure are i n the results section. HC PHOSPHORUS, SERUM Routine 04/13/2022 5:22 Resu lts for this AM EDT procedure are i n the results section. HC MAGNESIUM, SERUM Routine 04/13/2022 5:22 Resul ts for this AM EDT procedure are i n the results section. HC VENIPUNCTURE Routine 04/13/2022 5:22 Results f or this AM EDT procedure are i n the results section. SCAN DOC: TELEMETRY 04/13/2022 4:30 Resul ts for this STRIPS AM EDT procedure are i n the results section. SCAN DOC: TELEMETRY 04/12/2022 6:41 Resul ts for this STRIPS PM EDT procedure are i n the results section. PHOSPHORUS Routine 04/12/2022 4:31 Results for this PM EDT procedure are i n the results section. HC CALCIUM, SERUM Routine 04/12/2022 4:31 Results for this PM EDT procedure are i n the results section. EKG 12-LEAD Routine 04/12/2022 1:25 Hypocalcemia Results for this PM EDT procedure are i n the results section. PHOSPHORUS Routine 04/12/2022 5:22 Results for this AM EDT procedure are i n the results section. LAVENDER TUBE HOLD Routine 04/12/2022 5:22 Result s for this AM EDT procedure are i n the results section. HC VITAMIN D TOTAL-25 Routine 04/12/2022 5:22 Res ults for this HYDROXY AM EDT procedure are i n the results section. HC MAGNESIUM, SERUM Routine 04/12/2022 5:22 Resul ts for this AM EDT procedure are i n the results section. HC VENIPUNCTURE Routine 04/12/2022 5:22 Results f or this AM EDT procedure are i n the results section. SCAN DOC: TELEMETRY 04/12/2022 4:30 Resul ts for this STRIPS AM EDT procedure are i n the results section. HC CALCIUM, SERUM Routine 04/11/2022 6:12 Results for this PM EDT procedure are i n the results section. SCAN DOC: TELEMETRY 04/11/2022 5:21 Resul ts for this STRIPS PM EDT procedure are i n the results section. RAPID COVID-19 PCR Routine 04/11/2022 11:14 Resul ts for this ([facility]) AM EDT procedure are in the results section. EKG 12-LEAD STAT 04/11/2022 10:34 Hypocalcemia AM EDT POCT GLUCOSE Routine 04/11/2022 10:29 Results for this AM EDT procedure are i n the results section. ALBUMIN LEVEL Routine 04/11/2022 7:59 Results for this AM EDT procedure are i n the results section. PHOSPHORUS Routine 04/11/2022 7:59 Results for this AM EDT procedure are i n the results section. MAGNESIUM Routine 04/11/2022 7:59 Results for this AM EDT procedure are i n the results section. BASIC METABOLIC PANEL Routine 04/11/2022 7:59 Res ults for this (NON-FASTING) AM EDT procedure are in the results section. HC VENIPUNCTURE Routine 04/11/2022 7:59 Results f or this AM EDT procedure are i n the results section. SCAN DOC: TELEMETRY 04/11/2022 4:35 Resul ts for this STRIPS AM EDT procedure are i n the results section. HC VENIPUNCTURE Routine 04/10/2022 5:23 Results f or this PM EDT procedure are i n the results section. SCAN DOC: TELEMETRY 04/10/2022 5:10 Resul ts for this STRIPS PM EDT procedure are i n the results section. HC VENIPUNCTURE Routine 04/10/2022 10:27 Results for this AM EDT procedure are i n the results section. SCAN DOC: TELEMETRY 04/10/2022 5:14 Resul ts for this STRIPS AM EDT procedure are i n the results section. HC CALCIUM, SERUM Routine 04/10/2022 4:43 Results for this AM EDT procedure are i n the results section. HC VENIPUNCTURE Routine 04/10/2022 12:26 Results for this AM EDT procedure are i n the results section. HC VENIPUNCTURE Routine 04/09/2022 7:54 Results f or this PM EDT procedure are i n the results section. SCAN DOC: TELEMETRY 04/09/2022 4:25 Resul ts for this STRIPS PM EDT procedure are i n the results section. HC VENIPUNCTURE Routine 04/09/2022 4:25 Results f or this PM EDT procedure are i n the results section. HC VENIPUNCTURE Routine 04/09/2022 12:37 Results for this PM EDT procedure are i n the results section. HC VENIPUNCTURE Routine 04/09/2022 8:38 Results f or this AM EDT procedure are i n the results section. SCAN DOC: TELEMETRY 04/09/2022 5:14 Resul ts for this STRIPS AM EDT procedure are i n the results section. HC VENIPUNCTURE Routine 04/09/2022 4:39 Results f or this AM EDT procedure are i n the results section. DIFFERENTIAL, AUTOMATED Routine 04/09/2022 1:00 R esults for this AM EDT procedure are i n the results section. HEMOGRAM Routine 04/09/2022 1:00 Results for this AM EDT procedure are i n the results section. HC PHOSPHORUS, SERUM Routine 04/09/2022 1:00 Resu lts for this AM EDT procedure are i n the results section. HC MAGNESIUM, SERUM Routine 04/09/2022 1:00 Resul ts for this AM EDT procedure are i n the results section. BASIC METABOLIC PANEL Routine 04/09/2022 1:00 Res ults for this (NON-FASTING) AM EDT procedure are in the results section. HC CBC,PLT & AUTO DIFF Routine 04/09/2022 1:00 AM EDT HC VENIPUNCTURE Routine 04/09/2022 1:00 Results f or this AM EDT procedure are i n the results section. HC CALCIUM, SERUM Routine 04/08/2022 7:55 Results for this PM EDT procedure are i n the results section. MAGNESIUM Routine 04/08/2022 3:47 Results for this PM EDT procedure are i n the results section. HC CALCIUM, SERUM Routine 04/08/2022 3:47 Results for this PM EDT procedure are i n the results section. URINE HOLD Routine 04/08/2022 12:40 Results for this PM EDT procedure are i n the results section. HC CREATININE - NON BLOOD Routine 04/08/2022 12:40 Results for this PM EDT procedure are i n the results section. DIFFERENTIAL, AUTOMATED Routine 04/08/2022 4:53 R esults for this AM EDT procedure are i n the results section. HEMOGRAM Routine 04/08/2022 4:53 Results for this AM EDT procedure are i n the results section. HC PHOSPHORUS, SERUM Routine 04/08/2022 4:53 Resu lts for this AM EDT procedure are i n the results section. HC MAGNESIUM, SERUM Routine 04/08/2022 4:53 Resul ts for this AM EDT procedure are i n the results section. BASIC METABOLIC PANEL Routine 04/08/2022 4:53 Res ults for this (NON-FASTING) AM EDT procedure are in the results section. HC VENIPUNCTURE Routine 04/08/2022 4:53 AM EDT RAPID DRUG SCREEN W/O Routine 04/07/2022 10:05 Re sults for this CONFIRMATION, URINE PM EDT procedur e are in the results section. RAPID DRUG SCREEN, URINE Routine 04/07/2022 10:05 Results for this (TANNER REQUEST) PM EDT procedure are in the results section. BASIC METABOLIC PANEL Routine 04/07/2022 12:03 Re sults for this (NON-FASTING) PM EDT procedure are in the results section. DIFFERENTIAL, AUTOMATED Routine 04/07/2022 5:15 R esults for this AM EDT procedure are i n the results section. HEMOGRAM Routine 04/07/2022 5:15 Results for this AM EDT procedure are i n the results section. HC PHOSPHORUS, SERUM Routine 04/07/2022 5:15 Resu lts for this AM EDT procedure are i n the results section. HC MAGNESIUM, SERUM Routine 04/07/2022 5:15 Resul ts for this AM EDT procedure are i n the results section. BASIC METABOLIC PANEL Routine 04/07/2022 5:15 Res ults for this (NON-FASTING) AM EDT procedure are in the results section. HC CBC,PLT & AUTO DIFF Routine 04/07/2022 5:15 AM EDT HEPATIC FUNCTION PANEL Routine 04/07/2022 5:15 Re sults for this AM EDT procedure are i n the results section. CT HEAD WO CONTRAST STAT 04/06/2022 9:45 Resul ts for this (GENERIC) PM EDT procedure are i n the results section. HC PH DETERMINATION, STAT 04/06/2022 9:10 Resu lts for this ARTERIAL PM EDT procedure are i n the results section. EKG 12-LEAD STAT 04/06/2022 7:52 Results for this PM EDT procedure are i n the results section. VITAMIN D, 25-HYDROXY STAT 04/06/2022 7:20 Res ults for this PM EDT procedure are i n the results section. PTH STAT 04/06/2022 7:20 Results for this PM EDT procedure are i n the results section. GOLD TUBE HOLD STAT 04/06/2022 7:20 Results fo r this PM EDT procedure are i n the results section. DIFFERENTIAL, AUTOMATED STAT 04/06/2022 7:20 R esults for this PM EDT procedure are i n the results section. HEMOGRAM STAT 04/06/2022 7:20 Results for this PM EDT procedure are i n the results section. HC CBC,PLT & AUTO DIFF STAT 04/06/2022 7:20 PM EDT HC PHOSPHORUS, SERUM STAT 04/06/2022 7:20 Resu lts for this PM EDT procedure are i n the results section. HC MAGNESIUM, SERUM STAT 04/06/2022 7:20 Resul ts for this PM EDT procedure are i n the results section. BASIC METABOLIC PANEL STAT 04/06/2022 7:20 Res ults for this (NON-FASTING) PM EDT procedure are in the results section. HC PARATHYROID STAT 03/26/2022 5:05 Results fo r this HORMONE(PTH INTACT PM EDT procedure are in the results section. SPECIMEN TO PATHOLOGY Routine 03/26/2022 4:02 Res ults for this PM EDT procedure are i n the results section. SPECIMEN TO PATHOLOGY Routine 03/26/2022 3:53 Res ults for this PM EDT procedure are i n the results section. SPECIMEN TO PATHOLOGY Routine 03/26/2022 3:41 Res ults for this PM EDT procedure are i n the results section. SPECIMEN TO PATHOLOGY Routine 03/26/2022 3:22 Res ults for this PM EDT procedure are i n the results section. SPECIMEN TO PATHOLOGY Routine 03/26/2022 3:19 Res ults for this PM EDT procedure are i n the results section. SURGICAL PATHOLOGY REPORT Routine 03/26/2022 3:07 Results for this PM EDT procedure are i n the results section. SPECIMEN TO PATHOLOGY Routine 03/26/2022 3:07 Res ults for this PM EDT procedure are i n the results section. HC INTRAOPERATIVE PTH STAT 03/26/2022 2:27 Res ults for this PM EDT procedure are i n the results section. FACIAL NERVE MONITORING, Yes 03/26/2022 1:32 MEN 1 SYNDROM E SETUP LARYNGEAL (WRVU PM EDT 1.57) PARATHYROIDECTOMY OR Yes 03/26/2022 1:32 MEN 1 SYNDROME EXPLORATION OF PM EDT PARATHYROID(S) (WRVU 15.6) CT ABDOMEN AND PELVIS W Routine 03/14/2022 5:45 MEN 1 syndrome Results for this CONTRAST PM EDT procedure are i n the results section. MRI PITUITARY WWO Routine 03/12/2022 5:30 MEN 1 (multiple Resu lts for this CONTRAST PM EDT endocrine procedure are i n neoplasia) the results section. XR PRE MRI ORBITS Routine 03/12/2022 3:32 MEN 1 (multiple Resu lts for this PM EDT endocrine procedure are i n neoplasia) the results section. XR CHEST ONE VIEW STAT 02/26/2022 12:36 Result s for this PM EDT procedure are i n the results section. GASTRIN Routine 02/21/2022 3:36 Results for this PM EDT procedure are i n the results section. HC PARATHYROID Routine 02/21/2022 3:36 MEN 1 (multiple Results for this HORMONE(PTH INTACT PM EDT endocrine procedure are in neoplasia) the results section. BASIC METABOLIC PANEL Routine 02/21/2022 3:36 MEN 1 (multiple Results for this (NON-FASTING) PM EDT endocrine procedure are in neoplasia) the results section. HC PROLACTIN ASSAY, SERUM Routine 02/21/2022 3:36 MEN 1 (multi ple Results for this PM EDT endocrine procedure are i n neoplasia) the results section. HC VENIPUNCTURE Routine 02/21/2022 3:36 MEN 1 (multiple Result s for this PM EDT endocrine procedure are i n neoplasia) the results section. VASCULAR IMAGING VENOUS Routine 02/09/2022 3:05 Lower extremit y Results for this LOWER EXTREMITY PM EDT pain, right procedure ar e in UNILATERAL the results section. VASCULAR STUDY SCAN 02/09/2022 12:00 Resu lts for this AM EDT procedure are i n the results section. EKG 12-LEAD Routine 02/04/2022 10:43 Results for this AM EDT procedure are i n the results section. from Last 3 Months Results (ABNORMAL) Phosphorus (04/15/2022 4:51 AM EDT)Only the most recent of10 results within the time period is included. athologist Signature Phosphorus 5.7 (H) 2.5 - 4.5 [facility] mg/dL [facility] Specimen Anatomical Collection Method Collection Time Receive d Time (Source) Location / / Volume Laterality Blood 04/15/2022 4:51 AM 5:11 EDT AM EDT Resulting Agency Comment Spec In Lab Pauline Kincaid MD CHEMISTRY ORDERABLES Performing Organization Address City/State/[place] [address] Magnesium (04/15/2022 4:51 AM EDT)Only the most recent of11 resultswithin the time period is included. athologist Signature Magnesium 0.69 0.69 - 1.07 [facility] mmol/L [facility] Specimen Anatomical Collection Method Collection Time Receive d Time (Source) Location / / Volume Laterality Blood 04/15/2022 4:51 AM 5:11 EDT AM EDT Resulting Agency Comment Spec In Lab Pauline Kincaid MD CHEMISTRY ORDERABLES Performing Organization Address City/State/[place] [address] (ABNORMAL) Basic Metabolic Panel (non-fasting) (04/15/2022 4:51 AM EDT)Only the most recent of11 resultswithin the time period is included. athologist Signature Glucose Lvl 82 65 - 199 [facility] mg/dL [facility] Comment: Diabetes: >=200 mg/dL plus symp toms BUN 14 10 - 20 mg/dL [facility] Creatinine 0.83 0.80 - 1.50 mg/dL [facility] Sodium 138 135 - 145 mmol/L [facility] Potassium 4.4 3.5 - 5.0 mmol/L [facility] Comment: Please note: ??Patients with WBC >100,00 0 may have falsely elevated Potassium levels. ??For accurate Potassium quantif ication in these patients send serum separator tube (gold top) for subsequent determinations. ??Contact the Clinical Chemistry Laboratory if there are any qu estions. Chloride 101 98 - 107 mmol/L [facility] CO2 29 22 - 31 mmol/L [facility] Anion Gap 8 5 - 15 mmol/L [facility] Calcium 8.0 (L) 8.5 - 10.5 mg/dL [facility] Estimated GFR 122 >=60 mL/min/1.73 m?? [facility] Comment: This patient's estimated GFR [...] Organization Address City/State/ZIP Code Phon e Number [place] [phone] SCAN DOC: TELEMETRY STRIPS (04/15/2022 4:17 AM EDT)Only the most recent of15 resultswithin the time period is included. Narrative 04/15/2022 4:17 AM EDT This result has an attachment that is no t available. Ordered by an unspecified provider. Scanning Provider MEDIA MGR SCAN EXT ORDR/RSLT XR Lumbar Spine 2 Or 3 Views [...] who have questions please contact the health acute care nurse practitioner that requested your imaging first. ? Narrative 04/14/2022 4:31 PM EDT EXAMINATION: XR [...] ho have questions please contact the health acute care nurse practitioner that requested your imaging first. Jeff Dhillon MD IMG DX ORDERABLES XR Thoracic Spine 2 views (04/14/2022 4:13 [...] who have questions please contact the health acute care nurse practitioner that requested your imaging first. ? Narrative 04/14/2022 4:30 PM EDT EXAMINATION: XR [...] ho have questions please contact the health acute care nurse practitioner that requested your imaging first. Jeff Dhillon MD IMG DX ORDERABLES (ABNORMAL) Calcium (04/14/2022 1:51 PM EDT)Only the most recent of18 results within the time period is included. P athologist Signature Calcium 8.2 (L) 8.5 - 10.5 [facility] Specimen Anatomical Collection Method Collection Time Receive d Time (Source) Location / / Volume Laterality Blood 04/14/2022 1:51 PM 2 2:20 EDT PM EDT Resulting Agency Comment Spec In Lab Jeff Dhillon MD CHEMISTRY ORDERABLES Performing Organization Address City/State/[place] [address] Troponin (04/14/2022 3:17 AM EDT)Only the most recent of2 resultswithin the time period is included. P athologist Signature Troponin-T HS <6 <=22 ng/L [facility] Comment: This patient's troponin T [...] troponin value can be found in the [facility] Laboratory Test Catalog Troponin - [facility] Laboratory Test Catalog Reference: Fourth [place] Definition of Myocardia l Infarction. Journal of the [place] 2018;72:6834-1953 Specimen Anatomical Collection Method Collection Time Receive d Time (Source) Location / / Volume Laterality Blood 04/14/2022 3:17 AM 2 3:34 EDT AM EDT Resulting Agency Comment Spec In Lab Oscar Alfred MD CHEMISTRY ORDERABLES Performing Organization Address City/State/[place] [address] EKG 12 Lead (04/13/2022 11:13 PM EDT)Only the most recent of4 resultswithin the time period is included. Component Value Ref Range Test Analysis Performed Pathologis t Method Time At Signature Ventricular rate 67 BPM MUSE SYSTEM Atrial Rate 67 BPM MUSE SYSTEM P-R Interval 184 ms MUSE SYSTEM QRS Duration 90 ms MUSE SYSTEM Q-T Interval 426 ms MUSE SYSTEM QTC Calculated 450 ms MUSE SYSTEM (Bezet) Calculated P [place] 34 degrees MUSE SYSTEM Calculated R [place] 46 degrees MUSE SYSTEM Calculated T [place] 33 degrees MUSE SYSTEM INTERPRETATION Normal sinus rhythm MUSE SYSTEM Normal ECG When compared with ECG of 12-APR-2022 13:25, No significant change was found Confirmed by MD Rashad, Jean Carlos Perez ([id number]) on 04/15/2022 12:27 :54 AM Specimen Anatomical Collection Method Collection Time Receive d Time (Source) Location / / Volume Laterality 04/13/2022 11:13 04/15/2022 PM EDT 12:27 AM EDT Oscar Alfred MD ECG ORDERABLES Performing Organization Address City/[facility]/ZIP Code Phon e Number MUSE SYSTEM Lavender Tube HOLD (04/12/2022 5:22 AM EDT) [facility] Method Time Signature Lavender Hold Sample in [facility]. [facility] LABORATORY Specimen Anatomical Collection Method Collection Time Receive d Time (Source) Location / / Volume Laterality Blood Venous Draw / 04/12/2022 5:22 AM 04/12/20 5:35 Unknown EDT AM EDT Pauline Kincaid MD HEMATOLOGY ORDERABLES Performing Organization Address City/State/[place] [address] (ABNORMAL) Vitamin D, 25-Hydroxy (04/12/2022 5:22 AM EDT)Only the most recent of 2 resultswithin the time period is included. [facility] Method Time Signature 25-OH Vit D 16 (L) 21 - 100 [facility] Total ng/mL [facility] LABOR[facility]ORY 25-OH Vit D Deficient [facility] LABORATORY Specimen Anatomical Collection Method Collection Time Receive d Time (Source) Location / / Volume Laterality Blood 04/12/2022 5:22 AM 5:35 EDT AM EDT Resulting Agency Comment Spec In Lab Pauline Kincaid MD CHEMISTRY ORDERABLES Performing Organization Address City/State/ZIP Code [place] [address] COVID-19 PCR (04/11/2022 11:14 AM EDT) [facility] Method Time Signature SARS-CoV-2 Not Detected Not Detected [place] RNA PCR [facility] LABORATORY Comment: This result should be interpreted in com bination with the clinical observations, patient history and epidem iological information. For testing of asymptomatic individuals, assay performa nce characteristics and clinical utility have not been evaluated. Testing for SARS-CoV-2 (Severe acute respiratory syndrome coronavirus 2, form erly known as 2018 novel coronavirus or 2018-nCoV) to aid in the diagnosis of CO VID-19 is performed using the Simplexa COVID-19 Direct Assay by [employer] as authorized by the FDA issued Emergency Use Authorization (EUA). This assay is intended for In-vitro Diagnostic (IVD) use with nasopharyngeal swabs collected from individuals meeting the CDC criteria for testing. Th e assay is performed based on the instructions for use and additional guid ance provided by the FDA. Testing is performed in the Microbiology Laboratory within the Department of Pathology and Laboratory Medicine at [facility], certified under the Clinical Laboratory Improvement Amendmen [...] clinical management guidance information are available at [facility] CDC Coronavirus Disease 2019 (COVID-19) webpage under Information fo r Healthcare Professionals (https://www.cdc.gov/coronavirus/2019-nc ov/hcp/index.html). Additional information about this and ot her EUA tests can be found in provider and patient fact sheets at the following FDA website: https://www.fda.gov/medical-devices/mlsymilfhrw-bppyjob-8848-jsvym-64-dxnqwijdv- vih-yodxoapchamhce-guqfaqs-devices/iqtyg-brbasiafuhe-qnpr SARS-CoV-2 Source PHYSICAL THERAPIST Swab [facility] LABORATORY Specimen (Source) Anatomical Collection Method Collection Time Re ceived Time Location / / Volume Laterality Nasopharyngeal Swab 04/11/2022 11:14 03/17 AM EDT 7:14 PM EDT Comment: Symptoms->COVID-19 Suspected Resulting Agency Comment Spec In Lab Pauline Kincaid MD MICROBIOLOGY - GENERAL ORDER WILIAM Performing Organization Address City/State/ZIP Code Phon e Number [address] POCT Glucose (04/11/2022 10:29 AM EDT) athologist Signature POC Glucose 118 65 - 199 [facility] mg/dL [facility] Comment: Supplemental ranges: <140 mg/dL before meals <180 mg/dL all other times of the day Specimen Anatomical Collection Method Collection Time Receive d Time (Source) Location / / Volume Laterality Blood 04/11/2022 10:29 04/11/2022 AM EDT 10:29 AM EDT Pauline Kincaid MD POINT OF CARE TEST ORDERABLE S Performing Organization Address City/State/[place] [address] Albumin Level (04/11/2022 7:59 AM EDT) P athologist Signature Albumin 3.6 3.2 - 5.2 [place] g/dL [facility] LABORATORY Specimen Anatomical Collection Method Collection Time Receive d Time (Source) Location / / Volume Laterality Blood Venous Draw / 04/11/2022 7:59 AM 04/11/20 8:33 Unknown EDT AM EDT Resulting Agency Comment Spec In Lab Karina Montalvo MD CHEMISTRY ORDERABLES Performing Organization Address City/State/[place] [address] (ABNORMAL) Hemogram (04/09/2022 1:00 AM EDT)Only the most recent of4 results within the time period is included. Analysis Performed At Patho logist Time Signature WBC 8.5 4.0 - 9.5 [place] [facility] x10(3)/[facility] LABORATORY RBC 3.65 (L) 4.58 - [facility] JESSICA 5.54 [facility] x10(6)/[facility] LABORATORY Hemoglobin 11.1 (L) 13.7 - [facility] 16.5 g/dL [facility] LABORATORY Hematocrit 33.2 (L) 40.5 - [facility] JESSICA 48.5 % [facility] LABORATORY MCV 91.0 82.9 - [facility] JESSICA 93.1 [facility] LABORATORY MCH 30.4 27.5 - [facility] 32.1 pg [facility] LABORATORY MCHC 33.4 32.0 - [place] JESSICA 35.7 g/dL [facility] LABORATORY Platelets 241 145 - 357 [place] [facility] x[facility](3)/[facility] LABORATORY RDWSD 38.6 36.0 - [facility] 45.0 [facility] LABORATORY RDWCV 11.5 11.4 - [place] JESSICA 13.8 % [facility] LABORATORY MPV 11.1 7.6 - 12.9 [facility] [facility] LABORATORY nRBC % Auto 0.0 % [facility] LABORATORY nRBC Abs Auto 0.000 0.000 - [place] JESSICA 0.000 [facility] x10(3)/[facility] LABORATORY Specimen Anatomical Collection Method Collection Time Receive d Time (Source) Location / / Volume Laterality Blood 04/09/2022 1:00 AM 2 1:04 EDT AM EDT Resulting Agency Comment Spec In Lab Oscar Zazueta MD HEMATOLOGY ORDERABLES Performing Organization Address City/State/[place] [address] Differential, Automated (04/09/2022 1:00 AM EDT)Only the most recent of4 results within the time period is included. athologist Signature Neutrophils % 51.0 % [facility] LABORATORY Neutr Abs (ANC) 4.34 1.70 - [facility] 6.10 [facility] x10(3)/[facility] LABORATORY Lymphocytes % 34.9 % [facility] LABORATORY Lymphocytes Abs 3.0 0.9 - 3.2 [facility] x10(3)/[facility] LABORATORY Monocytes % 9.4 % [facility] LABORATORY Monocyte Abs 0.8 0.3 - 0.9 [facility] x10(3)/[facility] LABORATORY Eosinophils % 3.7 % [facility] LABORATORY Eosinophils Abs 0.3 0.0 - 0.4 [facility] x10(3)/[facility] LABORATORY Basophils % 0.6 % [facility] LABORATORY Basophils Abs 0.0 0.0 - 0.1 [facility] x10(3)/[facility] LABORATORY Immature Gran % 0.40 % [facility] LABORATORY Comment: Immature granulocytes(IG's)percentage an d absolute count will include metamyelocytes, myelocytes, and promyelo cytes. Blood smears from CBCs yielding IG's will be scanned manually for concor dance. If this scan disagrees with the automated IG or if promyelocytes are not ed, a manual differential will be performed. Ana Gran Abs 0.03 0.00 - 0.04 x10(3)/[facility] Y [facility] LABORATORY Specimen Anatomical Collection Method Collection Time Receive d Time (Source) Location / / Volume Laterality Blood 04/09/2022 1:00 AM 2 1:04 EDT AM EDT Resulting Agency Comment Spec In Lab Oscar Zazueta MD HEMATOLOGY ORDERABLES Performing Organization Address City/State/[place] [address] Urine Hold (04/08/2022 12:40 PM EDT) athologist Signature Urine Hold Sample in [facility] LABORATORY Specimen Anatomical Collection Method Collection Time Receive d Time (Source) Location / / Volume Laterality Urine Urine / Unknown 04/08/2022 12:40 04/08/20 8:20 PM EDT PM EDT Pauline Kincaid MD URINE ORDERABLES Performing Organization Address City/[facility]/ZIP Code Phon e Number [address] Calcium Creatinine Ratio, random urine (04/08/2022 12:40 PM EDT) P athologist Signature U Calcium 3.8 mg/dL [facility] LABORATORY U Creatinine 36 mg/dL [facility] LABORATORY Ca/Cre Ratio 0.11 ratio [facility] LABORATORY Specimen Anatomical Collection Method Collection Time Receive d Time (Source) Location / / Volume Laterality Urine 04/08/2022 12:40 04/08/2022 2:42 PM EDT PM EDT Resulting Agency Comment Spec In Lab Pauline Kincaid MD URINE ORDERABLES Performing Organization Address City/[facility]/[place] [address] Rapid Drug Screen, Urine (TANNER Request) (04/07/2022 10:05 PM EDT) athologist Signature TANNER Conf No [facility] LABORATORY Comment: Collection date/time has been modified t o: 22:05:00. ??Previous collection date/time: 22:03:00 . Corrected from No [NA] on 04/07/22 22:15 :29 EDT by Dallin Adams. TANNER Requested See Comment [facility] LABORATORY Comment: Refer to Rapid Drug [...] Zazueta MD URINE ORDERABLES Performing Organization Address City/State/[place] [address] (ABNORMAL) Rapid Drug Screen w/o Confirmation, Urine (04/07/2022 10:05 PM EDT) [facility] Method Time Signature U Barbiturates None None [facility] Screen Detected Detected [facility] LABORATORY Comment: The barbiturate screen detects barbitura [...] U Benzodiazepines Screen None Detected None Detected [facility] LABORATORY Comment: The benzodiazepines screen detects [...] U Cocaine Screen None Detected None Detected [facility] LABORATORY Comment: The cocaine metabolites screen [...] Methadone Metabolites Presumptive Pos (A) None Detected [facility] LABORATORY Comment: The methadone metabolite screen detects EDDP (major methadone metabolite) at concentrations >100 ng/mL. A ? Presumptive Positive? result indicates that the screening result was positive but has not yet been confirmed by a highly-specific method. As with any screen, occasional false positive re sults from cross-reacting substances may occur. Not for Medico-Legal Purposes. U Opiate Screen None Detected None Detected [facility] LABORATORY Comment: The opiates screen detects opiates at co ncentrations >300 ng/mL. Please note that oxycodone, oxymorphone, fentanyl, tramadol, and other synthetic opioids are not detected by [facility] opiate screen. A ? Presumptive Positive? result indicates that the screening result was positive but has not yet been confirmed by a highly-specific method. As with any screen, occasional false positive re sults from cross-reacting substances may occur. Not for Medico-Legal Purposes. U Cannabinoid Screen None Detected None Detected Mally DENG [facility] LABORATORY Comment: The marijuana metabolites screen detects the THC metabolite (42-edh-1-carboxy-delta 9-THC) at concen trations >20 ng/mL. A ? Presumptive Positive? result indicates that the screening result was positive but has not yet been confirmed by a highly-specific method. As with any screen, occasional false positive re sults from cross-reacting substances may occur. Not for Medico-Legal Purposes. U Oxycodone Screen None Detected None Detected [facility] LABORAT[facility] Comment: The oxycodone screen detects oxycodone a nd oxymorphone at concentrations >100 ng/mL. A ? Presumptive Positive? result indicates that the screening result was positive but has not yet been confirmed by a highly-specific method. As with any screen, occasional false positive re sults from cross-reacting substances may occur. Not for Medico-Legal Purposes. U Buprenorphine Screen None Detected None Detected [facility] LABORAT[facility] Comment: The buprenorphine screen detects [...] U Fentanyl Screen None Detected None Detected Mally DENG [facility] Comment: The fentanyl screen [...] characteristics of this test were determined by [facility] in accordance with CLIA requirements. This laboratory is qualifi ed under CLIA to perform high-complexity testing. U Tricyclics Screen None Detected None Detected JEANNETTE PERKINS [facility] LABORATORY Comment: The tricyclics screen detects tricyclic [...] U Ethanol Screen None Detected None Detected [facility] Comment: This urine ethanol assay detect s ethanol at concentrations >/= 100 mg/L. U Amphetamines Screen None Detected None Detected [facility] LABOR[facility]ORY Comment: The amphetamine screen detects d-ampheta mine and d-methamphetamine at concentrations >300 ng/mL. A ? Presumptive Positive? result indicates that the screening result was positive but has not yet been confirmed by a highly-specific method. As with any screen, occasional false positive re sults from cross-reacting substances may occur. Not for Medico-Legal Purposes. U Adulterants Screen None Detected None Detected Mally DENG [facility] LABORATORY Comment: No adulteration or [...] Zazueta MD CHEMISTRY ORDERABLES Performing Organization Address City/[facility]/ZIP Code Phon e Number [address] Hepatic Function Panel (04/07/2022 5:15 AM EDT) P athologist Signature Total Protein 6.4 6.1 - 8.0 [place] JESS[place] g/dL [facility] LABORATORY Albumin 3.5 3.2 - 5.2 [place] g/dL [facility] AST 15 0 - 39 [place] unit/L [facility]ORY ALT 17 0 - 55 [place] unit/L [facility]ORY Alk Phos 119 40 - 130 [place] unit/L [facility] LAB[facility]ATORY Total 0.3 0.2 - 1.3 [place] Bilirubin mg/dL [facility] LABORATORY Bili, Direct 0.1 0.0 - 0.3 [place] mg/dL [facility] LABORATORY Specimen Anatomical Collection Method Collection Time Receive d Time (Source) Location / / Volume Laterality Blood 04/07/2022 5:15 AM 5:21 EDT AM EDT Resulting Agency Comment Spec In Lab Oscar Zazueta MD CHEMISTRY ORDERABLES Performing Organization Address City/[facility] [place] [address] Head wo Contrast [...] who have questions please contact the health acute care nurse practitioner that requested your imaging first. ? Narrative 04/06/2022 9:56 PM EDT EXAMINATION: CT [...] Orbits: Normal Included paranasal sinuses: Minimal muco shakira thickening in left maxillary and frontal sinuses.. [...] Orbits: Normal Included paranasal sinuses: Minimal muco shakira thickening in left maxillary and frontal sinuses.. [...] ho have questions please contact the health acute care nurse practitioner that requested your imaging first. Kirt Rooney MD IMG CT ORDERABLES (ABNORMAL) Calcium Ionized Whole Blood, ADAM (04/06/2022 9:10 PM EDT) Analysis Performed At Patho logist Time Signature pH Adam 7.35 7.32 - [facility] 7.42 [facility] LABORATORY ICa Whole 0.99 (L) 1.15 - [facility] Blood 1.33 [facility] mmol/L [facility] LABORATORY Comment: Note: ??Total bilirubin higher than 20 m g/dL may lead to falsely low ionized calcium. Specimen Anatomical Collection Method Collection Time Receive d Time (Source) Location / / Volume Laterality Blood 04/06/2022 9:10 PM 9:18 EDT PM EDT Resulting Agency Comment Spec In Lab Kirt Rooney MD CHEMISTRY ORDERABLES Performing Organization Address City/State/[place] [address] (ABNORMAL) PTH (04/06/2022 7:20 PM EDT)Only the most recent of3 resultswithin the time period is included. P athologist Signature PTH 6 (L) 15 - 65 [facility] pg/mL [facility] LABORATORY Specimen Anatomical Collection Method Collection Time Receive d Time (Source) Location / / Volume Laterality Blood Venous Draw / 04/06/2022 7:20 PM 04/07/20 Unknown EDT 12:09 AM EDT Resulting Agency Comment Spec In Lab Oscar Zazueta MD CHEMISTRY ORDERABLES Performing Organization Address City/State/ZIP Code Phon e Number [address] Gold Tube HOLD (04/06/2022 7:20 PM EDT) P athologist Signature Gold Hold Sample in [facility] lab. [facility] LABORATORY Specimen Anatomical Collection Method Collection Time Receive d Time (Source) Location / / Volume Laterality Blood Venous Draw / 04/06/2022 7:20 PM 04/06/20 7:25 Unknown EDT PM EDT Kimberli Armas MD CHEMISTRY ORDERABLES Performing Organization Address City/[facility]/ZIP Code Phon e Number [address] Specimen to Pathology (03/26/2022 4:02 PM EDT)Only the most recent of6 results within the time period is included. Specimen Anatomical Collection Method Collection Time Receive d Time (Source) Location / / Volume Laterality AP Specimen 03/26/2022 4:02 PM 4:02 EDT PM EDT Narrative [facility] LABORAT ORY - 03/26/2022 4:02 PM EDT Specimen requisition ordered. ??Separate Pathology report to follow Siomara Gorman MD PATHOLOGY/CYTOLOGY ORDERABLE S Performing Organization Address City/[facility]/ZIP Code Phon e Number [address] Surgical Pathology Report (03/26/2022 3:07 PM EDT) Component Value Ref Test Analysis Performed At Patholo gist Range Method Time Signature Surgical [id number] ? Location: [facility] Report The signing pathologist has (i) examined the relevant preparation(s) for the [facility] specimen(s) and (ii) rendered or confirmed the diagnosis(es) . HOSPITAL LABORATORY . ?Surgic al Pathology DIAGNOSIS A - Right lower parathyroid, excision: [...] parathyroid, excision: Parathyroid gland and adipose tissue Electronically signed by: ?Kimber HERNANDEZ, Chanell Chin Verified: ??04/03/2022 11:47 ??Pathologist Performed at: ??-[facility] Dept. of Pathology, [place], [place] SPECIMEN(S) SUBMITTED A - right lower parathyroid versus lymph node, excision (1) ?for frozen section B - right upper parathyroid, excision (1) C - right central neck content, excision (1) D - left upper parathyroid, excision (1) E - left cervical thymus, excision (1) F - left lower parathyroid, excision (1) CLINICAL INFORMATION MEN 1 syndrome SPECIMEN PROCESSING A - Labeled/Fixative: Right lower parathyroid versus lymph node, fresh for frozen section. Quantity/Size/Weight: Single, 1.0 x 0.7 x 0.4 cm, 0.17 g. Tissue Description: Hightower-pink soft tissue and attached adipos e tissue. Sections/Processing: The following tissue is subm itted for frozen section: Entirely submitted, AFS1. Entirely submitted in 1 cassette labeled A1. B - Labeled/Fixative: Right upper parathyroid, formalin. Quantity/Size/Weight: Single, 0.9-0.5 x 0.3 cm, 0.6 g, post fixation. Tissue Description: Rubbery hightower-pink soft tissue. Sections/Processing: Entirely submitted in 1 cassette labeled B1. . SPECIMEN PROCESSING C - Labeled/Fixative: Right central neck content, formalin. Quantity/Size: Single, 1.5 x 1.2 x 0.3 cm. Tissue Description: One rubb jose hightower-pink lymph node candidate measuring 0.9 x 0.7 x 0.2 cm with attached adipose tissue Sections/Processing: Submitted en toto ??in 1 cassette labeled C1. D - Labeled/Fixative: Left upper parathyroid, formalin. Quantity/Size/Weight: Single, 2.4 x 1.8 x 0.8 cm, 2.27 g pos t fixation. Tissue Description: Lobulated, rubbery red-brown soft tissue . Sections/Processing: Entirely submitted in 4 cassettes labeled D1-D4. E - Labeled/Fixative: Left cervical thymus, formalin. Quantity/Size: Single, 2.6 x 1.8 x 0.6 cm, 0.79 g. Tissue Description: Intact, lobulated hightower-pink soft tissue. Ink: External surface inked black Sections/Processing: Serially sectioned and entirely submitted in 2 cassettes lab eled E1-E2. F - Labeled/Fixative: Left lower parathyroid, formalin. Quantity/Size/Weight: Two, 0 .5 x 0.5 x 0.2 cm in aggregate, 0.02 Grams post fixation. Tissue Description: Fragments of hightower-pink soft tissue. Sections/Processing: Entirely submitted in 1 cassette labeled F1. ??po ?Fro hector Section FROZEN SECTION DIAGNOSIS AFS1 - Right lower parathyro id versus lymph node, excision, ?frozen section: - Parathyroid tissue present; mildly hypercellular. 03/26/22 15:44 / DAK Electronically signed by: ?Sandra Lemus MD Verified: ??03/26/2022 15:47 ??Pathologist Performed at: ??-[facility] Dept. of Pathology, [place], [place] This intraoperative consultation should be interpreted as a preliminary diagnosis pending review of the entire specimen and sp ecial studies, if any. A final Surgical Pathology report will follow th is preliminary Frozen Section report(s). Specimen (Source) Anatomical Collection Method Collection Time Re ceived Time Location / / Volume Laterality 03/26/2022 3:07 PM EDT Siomara Gorman MD PATHOLOGY/CYTOLOGY ORDERABLE S Performing Organization Address City/State/Z[place] [address] (ABNORMAL) Intraoperative PTH ([facility]) (03/26/2022 2:27 PM EDT) [facility] gist Method Time Signature Intraoper PTH 1,887 (H) 15 - 65 [facility] LABORATORY Comment: Called by: dave, Read back by: Amador fraser, Date/Time:03/26/22 15:06. IOP-PTH baseline A 50 % decrease in venous iPTH levels at 10 min post adenoma excision is expected if all the hypersecreting parat hyroid tissue has been removed (Jose GL et al. Surgery 1993:114; [id number]) Specimen Anatomical Collection Method Collection Time Receive d Time (Source) Location / / Volume Laterality Blood 03/26/2022 2:27 PM 2:39 EDT PM EDT Resulting Agency Comment Spec In Lab Siomara Gorman MD CHEMISTRY ORDERABLES Performing Organization Address City/State/[place] [address] Abdomen & Pelvis w Contrast (03/14/2022 5:45 PM EDT) Anatomical Region Laterality Modality Abdomen, Pelvis Computed Tomography Specimen (Source) Anatomical Collection Method Collection Time Re ceived Time Location / / Volume Laterality 03/14/2022 6:03 PM EDT Impressions 03/15/2022 9:23 AM EDT Normal abdominal exam. As described abov e, due to technical error, the pelvis was not imaged. The patient will return for additional images of the pelvis. Thank you for letting us participate in the care of this patient. ??If you are a health care provider and have any questi ons regarding this report, please contact the number below. ??For patients who have questions please contact the health acute care nurse practitioner that requested your imaging first. ? 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 Administered 115.0 ml of OMNIPAQUE 350.00 mg/ml. Oral contrast was administered. Arterial and portal venous phase images were obtained. Although an abdomen and pelvis exam was ordered and protocol for, only images of the abdomen were obtained. The patient will return for additional images of the pelvis. COMPARISON: None FINDINGS: Lower chest: Normal. Liver: Normal size. No enhancing lesions . A 1.7 cm region of low attenuation is seen adjacent to the falciform ligament, felt to be focal fatty change or focal hypoperfusion. It is not a suspicious le gonzalo. Bile ducts: Nondilated. Gallbladder: No calcified gallstones. No rmal caliber wall. Pancreas: Normal attenuation without azam patricia dilatation. Spleen: Normal. Adrenals: Normal. Kidneys: 11 mm cyst upper pole LEFT kidn ey. No renal masses. No collecting system obstruction bilaterally. Vasculature: No aneurysm. Lymph Nodes: No enlarged lymph nodes. Bowel: Nondilated, no wall thickening. ? ? Peritoneum and mesentery: No ascites, fr ee air, or loculated fluid collection. No mesenteric inflammation. Abdominal wall: Normal. Osseous structures: No suspicious lesion s. Procedure Note Ricardo Unger MD - 03/15/2022Form atting of this note might be different from the original. 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 Administered 115.0 ml of OMNIPAQUE 350.00 mg/ml. Oral contrast was administered. Arterial and portal venous phase images were obtained. Although an abdomen and pelvis exam was ordered and protocol for, only images of the abdomen were obtained. The patient will return for additional images of the pelvis. COMPARISON: None FINDINGS: Lower chest: Normal. Liver: Normal size. No enhancing lesions . A 1.7 cm region of low attenuation is seen adjacent to the falciform ligament, felt to be focal fatty change or focal hypoperfusion. It is not a suspicious le gonzalo. Bile ducts: Nondilated. Gallbladder: No calcified gallstones. No rmal caliber wall. Pancreas: Normal attenuation without azam patricia dilatation. Spleen: Normal. Adrenals: Normal. Kidneys: 11 mm cyst upper pole LEFT kidn ey. No renal masses. No collecting system obstruction bilaterally. Vasculature: No aneurysm. Lymph Nodes: No enlarged lymph nodes. Bowel: Nondilated, no wall thickening. Peritoneum and mesentery: No ascites, fr ee air, or loculated fluid collection. No mesenteric inflammation. Abdominal wall: Normal. Osseous structures: No suspicious lesion s. IMPRESSION Normal abdominal exam. As described abov e, due to technical error, the pelvis was not imaged. The patient will return for additional images of the pelvis. Thank you for letting us participate in the care of this patient. If you are a health care provider and have any questi ons regarding this report, please contact the number below. For patients w ho have questions please contact the health acute care nurse practitioner that requested your imaging first. Siomara Gorman MD IMG CT ORDERABLES MRI Pituitary wwo Contrast (03/12/2022 5:30 PM EDT) Anatomical Region Laterality Modality Head Magnetic Resonance Specimen (Source) Anatomical Location Collection Method / Collectio n Time Received Time / Laterality Volume Impressions 03/13/2022 9:33 AM EDT Normal MRI of the pituitary gland. I have personally reviewed the image(s) and the resident's interpretation and agree with the findings, Jamaal English MD at 03/13/2022 9:33 AM Thank you for letting us participate in the care of this patient. ??If you are a health care provider and have any questi ons regarding this report, please contact the number below. ??For patients who have questions please contact the health acute care nurse practitioner that requested your imaging first. ? Narrative 03/13/2022 9:33 AM EDT EXAMINATION: MRI PITUITARY WWO CONTRAST CLINICAL HISTORY: Patient with MEN-1 (no t followed); reports headaches, vision changes, has elevated prolactin Patient with MEN-1 (not followed); repor ts headaches, vision changes, has elevated prolactin TECHNIQUE: MRI of the brain was performed before an d following the intravenous administration of 19 cc Dotarem. COMPARISON: None FINDINGS: The pituitary gland is normal in appeara nce with normal posterior pituitary T1 hyperintensity. There is normal uniform enhancement of the pituitary gland. The cavernous sinuses are normal. The optic chiasm, prechiasmatic optic nerves and visualized post chiasmatic optic pathway s are normal. Unremarkable appearance of the infundibulum in the hypothalamus. Th e visualized cerebral parenchyma is unremarkable. The ventricles are normal in size and configuration. Major intracranial flow voids are patent. The visualized paranasal sinuses are clear. Procedure Note Jamaal English MD - 03/13/2022Format ting of this note might be different from the original. EXAMINATION: MRI PITUITARY WWO CONTRAST CLINICAL HISTORY: Patient with MEN-1 (no t followed); reports headaches, vision changes, has elevated prolactin Patient with MEN-1 (not followed); repor ts headaches, vision changes, has elevated prolactin TECHNIQUE: MRI of the brain was performed before an d following the intravenous administration of 19 cc Dotarem. COMPARISON: None FINDINGS: The pituitary gland is normal in appeara nce with normal posterior pituitary T1 hyperintensity. There is normal uniform enhancement of the pituitary gland. The cavernous sinuses are normal. The optic chiasm, prechiasmatic optic nerves and visualized post chiasmatic optic pathway s are normal. Unremarkable appearance of the infundibulum in the hypothalamus. Th e visualized cerebral parenchyma is unremarkable. The ventricles are normal in size and configuration. Major intracranial flow voids are patent. The visualized paranasal sinuses are clear. IMPRESSION Normal MRI of the pituitary gland. I have personally reviewed the image(s) and the resident's interpretation and agree with the findings, Jamaal English MD at 03/13/2022 9:33 AM Thank you for letting us participate in the care of this patient. If you are a health care provider and have any questi ons regarding this report, please contact the number below. For patients w ho have questions please contact the health acute care nurse practitioner that requested your imaging first. Siomara Gorman MD IMG MRI ORDERABLES XR Pre MRI Orbits (Generic) (03/12/2022 3:32 PM EDT) Anatomical Region Laterality Modality Head N/A Digital Radiography Specimen (Source) Anatomical Location Collection Method / Collectio n Time Received Time / Laterality Volume Impressions 03/12/2022 4:17 PM EDT No radiodense or metallic foreign bodies overlying the orbits. Thank you for letting us participate in the care of this patient. ??If you are a health care provider and have any questi ons regarding this report, please contact the number below. ??For patients who have questions please contact the health acute care nurse practitioner that requested your imaging first. ? Narrative 03/12/2022 4:17 PM EDT EXAMINATION: XR PRE MRI ORBITS (GENERIC) CLINICAL HISTORY: ? metal fragments TECHNIQUE: 2 views orbits COMPARISON: None FINDINGS: And Procedure Note Kierra Barillas MD - 03/12/2022Formatt ing of this note might be different from the original. EXAMINATION: XR PRE MRI ORBITS (GENERIC) CLINICAL HISTORY: ? metal fragments TECHNIQUE: 2 views orbits COMPARISON: None FINDINGS: And IMPRESSION No radiodense or metallic foreign bodies overlying the orbits. Thank you for letting us participate in the care of this patient. If you are a health care provider and have any questi ons regarding this report, please contact the number below. For patients w ho have questions please contact the health acute care nurse practitioner that requested your imaging first. Siomara oGrman MD IMG DX ORDERABLES XR Chest One View (02/26/2022 12:36 PM EDT) [facility] gist Method Time Signature PT CLASS E RAD ADMITDTTM [id number] RAD PT [facility] INFO [id number]^CARLOS RAD LS^KIRT^O EXAM DESC XCXR1^XR Chest 1 [facility] View Portable^RIS Anatomical Region Laterality Modality [...] who have questions please contact the health acute care nurse practitioner that requested your imaging first. ? Procedure [...] ho have questions please contact the health acute care nurse practitioner that requested your imaging first. Kirt MORALES IMG DX ORDERABLES Chromogranin A (02/21/2022 3:36 PM EDT) athologist Signature Chromogranin A 81 <93 ng/mL [facility] Comment: ADDITIONAL INFORMATIO N This test was developed and its performa nce characteristics determined by [facility] in a manner co nsistent with [...] homogeneous time -resolved immunofluorescent assay manufactured by [employer] and performed on the [employer] act Plus. Values obtained with different assay met hods or kits may be different and cannot be used interchange ably. Test results cannot be interpreted as ab solute evidence for the presence or absence of malignant dis ease. Test Performed by: [facility] [address] [place] [address] Public Relations: Bo Valladares M.D. Ph. D.; CLIA# [id number] Specimen Anatomical Collection Method Collection Time Receive d Time (Source) Location / / Volume Laterality Blood 02/21/2022 3:36 PM 2 4:16 EDT PM EDT Resulting Agency Comment Spec In Lab Siomara Gorman MD CHEMISTRY ORDERABLES Performing Organization Address City/[facility]/ZIP Code Phon e Number [address] (ABNORMAL) Prolactin (02/21/2022 3:36 PM EDT) P athologist Signature Prolactin 17.8 (H) 4.0 - 15.2 [facility] ng/mL [facility] Specimen Anatomical Collection Method Collection Time Receive d Time (Source) Location / / Volume Laterality Blood 02/21/2022 3:36 PM 2 3:48 EDT PM EDT Resulting Agency Comment Spec In Lab Siomara Gorman MD CHEMISTRY ORDERABLES Performing Organization Address City/[facility]/ZIP [facility] [place] [address] (ABNORMAL) Gastrin (02/21/2022 3:36 PM EDT) P athologist Signature Gastrin 146 (H) pg/mL [facility] Comment: REFERENCE VALUE------ <100 Reference ranges valid for >= 8 hour fast. Test Performed by: [facility] [address] [place] [address] Public Relations: Bo Valladares M.D. Ph. D.; CLIA# [id number] Specimen Anatomical Collection Method Collection Time Receive d Time (Source) Location / / Volume Laterality Blood Venous Draw / 02/21/2022 3:36 PM 02/23/20 22 4:21 Unknown EDT PM EDT Resulting Agency Comment Spec In Lab Siomara Gorman MD CHEMISTRY ORDERABLES Performing Organization Address City/State/ZIP Code Phon e Number [place] [id number] Vascular Imaging Venous Lower [...] who have questions please contact the health acute care nurse practitioner that requested your imaging first. ? Electronically signed by: MIKE PEARL MD, [facility] ([phone]), at 02/09/2022 3:15 PM Narrative 02/09/2022 3:15 [...] femoral veins are clear. Procedure Note Mike Pearl MD - 02/09/2022Formatti ng of this note [...] ho have questions please contact the health acute care nurse practitioner that requested your imaging first. Electronically signed by: MIKE PEARL MD, [facility] ([phone]), at 02/09/2022 3:15 PM Santiago Carroll DO [facility] AFFIL VASCULAR ORDERABLE S SCAN DOC: VASCULAR STUDY (02/09/2022 12:00 AM EDT) Narrative 02/09/2022 12:00 AM EDT This result has an attachment that is no t available. Ordered by an unspecified provider. Scanning Provider MEDIA MGR SCAN EXT ORDR/RSLT from Last 3 Months Insurance Payer Benefit Plan / Subscriber ID Effective Dates Phone Addre ss Type Group [place] [id number] 2022-Prese [phone] [address] PRIMARY CARE nt 7 [facility] [id number] Advance Directives Latest Code Status on File Code Status Date Activated Date Inactivated Comments Attempt Cardiopulmonary Resuscitation 04/07/2022 12:08 AM 2021 4:58 PM - Inpatient Code Status decision made by: Patient Care Teams Body Designer Relationship Specialty Start Date End Date Brendon Vivar DO PCP - General Family Medicine 04/12/22 [address] [place] [address]
--- OUTSIDE RECORDS SUMMARY | 2022-04-18 14:12 | XMS_ITS | Encounter Summary ---
:1995 Author Organization [facility] Address [address] [place] [address] Care Team Providers Name Role Phone Brendon Vivar Primary Care Provider Encounter Details Date Type Department Care Team Description 04/15/2022 Orders Only Endocrinology at [facility] Minh Guzman Hypoparathyroidism, [facility] Jose Mosqueda DO unspecified [address] [facility] hypoparathyroidism type [place], [place] [address] ENDOCRINOLOGY [phone] [place] [address] Social History Tobacco Use Types Packs/Day Years Used Date Never Smoker Smokeless Tobacco: Never Used Alcohol Use Standard Drinks/Week Comments Not Currently 0 (1 standard drink = 0.6 oz pure alcoho l) Sex Assigned at Date Recorded Not on file documented as of this encounter Miscellaneous Notes Addendum Note - Jose Guzman DO - 04/15/2022 1:53 PM EDT Addended by: JOSE GUZMAN on: 04/15/2022 02:08 PM Modules accepted: Orders documented in this encounter Plan of Treatment Upcoming Encounters Date Type Specialty Care Team Description 04/25/2022 Laboratory Appointment Lab 04/25/2022 Office Visit General Surgery Siomara Gorman MD [facility] ER GENERAL SURGERY [place], [place] [address] (Wo rk) 05/14/2022 Office Visit Endocrinology Karina Montalvo MD [facility] ENDOCRINOLOGY [place], [place] [address] (Wo rk) Scheduled Orders Name Type Priority Associated Diagnoses Order S chedule Basic Metabolic Panel Lab Routine Hypoparathyroidism, Expected: (non-fasting) unspecified hypoparathyroid ism 04/15/2022, type Expires: 2022 Albumin Level Lab Routine Hypoparathyroidism, Expecte d: unspecified hypoparathyroidi 04/15/2022, type Expires: 2022 Phosphorus Lab Routine Hypoparathyroidism, Expected : unspecified hypoparathyroidi 04/15/2022, type Expires: 2022 Calcium, urine, 24 Lab Routine Hypoparathyroidism, Ex pected: hour unspecified hypoparathyroidi 04/15/2022, type Expires: 2022 Creatinine, urine, 24 Lab Routine Hypoparathyroidism, Expected: hour unspecified hypoparathyroidi 04/15/2022, type Expires: 2022 documented as of this encounter Visit Diagnoses Diagnosis Hypoparathyroidism, unspecified hypopara thyroidism type documented in this encounter Care Teams Turret Punch Operator Relationship Specialty Start Date End Date Brendon Vivar DO PCP - General Family Medicine 04/12/[address] [place] [id number] documented as of this encounter
--- OUTSIDE RECORDS SUMMARY | 2022-04-18 14:12 | XMS_ITS | Encounter Summary ---
:1995 Author Organization [facility] [place] [address] Care Team Providers Name Role Phone None Primary Care Provider Unavailable Encounter Details Date Type Department Care Team Description 03/29/2022 Telephone General Surgery at [facility] Ana Escudero, RN [facility] [place] [address] Social History Tobacco Use Types Packs/Day Years Used Date Never Smoker Smokeless Tobacco: Never Used Sex Assigned at Date Recorded Not on file documented as of this encounter Miscellaneous Notes Telephone Encounter - Ana Escudero RN - 03/29/2022 12:31 PM EDT Pedro Pablo called the clinic line to follow up about his unresolved tingling. So far today Pedro Pablo has taken a total of 4 500 mg Mamadou tablets. He has not yet picked up his calcitriol prescription that was ordered yesterday. I spoke with Dr. Gorman about the statement noted above. Per Dr. Gorman Pedro Pablo was advised to take 4,000 mg of Tums daily (1,000 mg QID) with food for better absorption. I also recommended he hot die picker his calcitriol prescription today to start the recommended dose of 0.25 mcg BID for the next 7 days. I explained the importance of taking both the Tums as directed as well as the calcitriol. I explained that it may take his body a day or two to catch up on calcium absorption, he can take additional 1,000 mg doses of Tums PRN in addition to the recommended 4,000 mg/daily. He was advised to keep a logof medication intake for the next few days. Pedro Pablo verbalized his understanding of this plan and he agrees with it. He was encouraged to call us back at the clinic with any additional questions, concerns or worsening symptoms. This note will be routed to Dr. Gorman. documented in this encounter Plan of Treatment Upcoming Encounters Date Type Specialty Care Team Description 04/25/2022 Laboratory Appointment Lab 04/25/2022 Office Visit General Surgery Siomara Gorman MD [facility] GENERAL SURGERY [place], [place] [address] (Wo rk) 05/14/2022 Office Visit Endocrinology Karina Montalvo MD [facility] ENDOCRINOLOGY DE PT [place], [place] [address] (Wo rk) documented as of this encounter Visit Diagnoses Not on filedocumented in this encounter Care Teams Heavy Equipment Plumbing Supervisor Relationship Specialty Start Date End Date None PCP - General 02/09/22 04/11/22 None documented as of this encounter
--- OUTSIDE RECORDS SUMMARY | 2022-04-18 14:12 | XMS_ITS | Encounter Summary ---
:1995 [place] [address] Care Team Providers Name Role Phone None Primary Care Provider Unavailable Encounter Details Date Type Department Care Team Description 03/28/2022 Telephone General Surgery at [facility] Joan Covington APRN [facility] [place] [phone] GENERAL SURGERY [phone] [place], [place] [address] (Wo rk) Social History Tobacco Use Types Packs/Day Years Used Date Never Smoker Smokeless Tobacco: Never Used Sex Assigned at Date Recorded Not on file documented as of this encounter Miscellaneous Notes Telephone Encounter - Joan Covington APRN - 03/28/2022 3:28 PM EDT I received a phone call from a PA at [facility] in regards to Pedro Pablo. He is POD 2 from a subtotal parathyroidectomy. He presented with paraesthesias and discomfort of his neck. His calcium was 8.1. A PTH was not drawn, it will be added to labs with a result in 24-48 hours per the PA as it is a send out. Creatinine was slightly elevated. She was unclear if he had been taking calcium supplementation. I have recommended she advise him to take calcium in the form of TUMs if he is having difficulty swallowing. He should take 4,000 mg daily. I also recommended he take calcitriol 0.25mcg bid for the next 7 days. 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 I will have our team reach out to Pedro Pablo tomorrow to check status. Joan Covington APRN documented in this encounter Plan of Treatment Upcoming Encounters Date Type Specialty Care Team Description 04/25/2022 Laboratory Appointment Lab 04/25/2022 Office Visit General Surgery Siomara Gorman MD [facility] GENERAL SURGERY [place], [place] [address] (Wo rk) 05/14/2022 Office Visit Endocrinology Karina Montalvo MD [facility] ENDOCRINOLOGY DE PT [place], [place] [address] (Wo rk) documented as of this encounter Visit Diagnoses Not on filedocumented in this encounter Care Teams Lead Janitor Relationship Specialty Start Date End Date None PCP - General 02/09/22 04/11/22 None documented as of this encounter
--- OUTSIDE RECORDS SUMMARY | 2022-04-18 14:12 | XMS_ITS | Encounter Summary ---
:1995 Author Organization [facility] [place] [address] Care Team Providers Name Role Phone Brendon Vivar Primary Care Provider Encounter Details Date Type Department Care Team Description 04/09/2022 Telephone Hospitalist Kimberli Bahena, [place] [address] Social History Tobacco Use Types Packs/Day Years Used Date Never Smoker Smokeless Tobacco: Never Used Alcohol Use Standard Drinks/Week Comments Not Currently 0 (1 standard drink = 0.6 oz pure alcoho l) Sex Assigned at Date Recorded Not on file documented as of this encounter Miscellaneous Notes Telephone Encounter - Kimberli Bahena, [facility] - 04/09/2022 12:49 PM EDT Medication Prior Authorization Request received via: Hospitalist Patient: Pedro Pablo Cortes Patient : 1995 Insurance Company: Medicaid [place] [employer] Sent via: [facility] Garcia: [id number] Physician: Dr. Pauline Kincaid Medication Requested: Teriparatide 20 mcg Pen injector Strength: 20 mcg (620mcg/2.48ml Frequency/Sig: Inject 20 mcg subcutaneously 2 times daily for 30 days Disp: 4.96 ml Refills: 0 Currently taking: no If yes, how long: n/a Diagnosis for this medication: Hypocalcemia E83.51 Prior medications trialed in this patient: Medication: Calcitriol Approx Dates: n/a Outcome/Adverse Reactions: Inadequate response Medication:Calcium carbonate (not added to PA in CMM) Approx Dates:n/a Outcome/Adverse Reactions: Inadequate response Additional Notes: marco Chamorro Cortes To Whom This May Concern, This patient is currently admitted at [facility] due to 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 Despite being on high dose of calcium supplement and active vitaminD. His calcium is still around 7 range in which he is having symptoms of tingling on his extremities. We write this letter to inform that teriparatide is deemed medical necessary in this patient. Giventhat Natpara (recombinant human parathyroid hormone) is being recalled from the market, teriparatideis currently the only option for treatment of hypoparathyroidism. Please feel free to reach us if you have any questions. Sincerely, Karina Montalvo MD Department of Endocrinology Forwarded recent labs (including BMP, Magnesium, Calcium, Phosphorus) Letter of necessity attached as well documented in this encounter Plan of Treatment Upcoming Encounters Date Type Specialty Care Team Description 04/25/2022 Laboratory Appointment Lab 04/25/2022 Office Visit General Surgery Siomara Gorman MD [facility] GENERAL SURGERY [place], [place] [address] (Wo rk) 05/14/2022 Office Visit Endocrinology Karina Montalvo MD [facility] ENDOCRINOLOGY [place], [place] [address] (Wo rk) documented as of this encounter Visit Diagnoses Not on filedocumented in this encounter Additional Health Concerns Infection Onset Date Last Indicated Resolved Time Rule Out COVID-19 04/11/2022 04/11/2022 04/11/2022 8:5 5 PM EDT documented as of this encounter Care Teams Leather Belt Maker Relationship Specialty Start Date End Date Brendon Vivar DO PCP - General Family Medicine 04/12/22 [address] [place] [address] documented as of this encounter
--- OUTSIDE RECORDS SUMMARY | 2022-04-18 14:12 | XMS_ITS | Encounter Summary ---
:1995 Author Organization [facility] [place] [address] Care Team Providers Name Role Phone None Primary Care Provider Unavailable Encounter Details Date Type Department Care Team Description 03/31/2022 Telephone [facility]ocrinology at [facility] [place] [address] [facility] [phone] ENDOCRINOLOGY [place], [place] [address] (Wo rk) Social History Tobacco Use Types Packs/Day Years Used Date Never Smoker Smokeless Tobacco: Never Used Sex Assigned at Date Recorded Not on file documented as of this encounter Miscellaneous Notes Telephone Encounter - Karina Montalvo MD - 03/31/2022 12:42 PM EDT Received call from [facility] re hypocalcemia Patient still has refractory hypocalcemia since parathyroidectomy. His Ca went down to 6.7 and Mg 1.3. After IV calcium went up to 7.5 and IV mag went up to 2.5. Recommend TUMS 2000 tid with meals and calcitriol 1 mcg twice daily, and magnesium supplement. Will arrange follow up for this patient in [address] Ja Montalvo MD [facility] Endocrinology PGY-4, Fellow Pager #[phone] documented in this encounter Plan of Treatment Upcoming Encounters Date Type Specialty Care Team Description 04/25/2022 Laboratory Appointment Lab 04/25/2022 Office Visit General Surgery Siomara Gorman MD [facility] ER GENERAL SURGERY [place], [place] [address] (Wo rk) 05/14/2022 Office Visit Endocrinology Karina Montalvo MD [facility] ER ENDOCRINOLOGY DE PT [place], [place] [address] (Wo rk) documented as of this encounter Visit Diagnoses Not on filedocumented in this encounter Care Teams Tagman Relationship Specialty Start Date End Date None PCP - General 02/09/22 04/11/22 None documented as of this encounter
--- OUTSIDE RECORDS SUMMARY | 2022-04-18 14:12 | XMS_ITS | Encounter Summary ---
:1995 Author Organization [facility] [place] [address] Care Team Providers Name Role Phone None Primary Care Provider Unavailable Encounter Details Date Type Department Care Team Description 04/09/2022 Telephone Gastroenterology at [facility] Floresita Miller [facility] [place] [address] Social History Tobacco Use Types Packs/Day Years Used Date Never Smoker Smokeless Tobacco: Never Used Alcohol Use Standard Drinks/Week Comments Not Currently 0 (1 standard drink = 0.6 oz pure alcoho l) Sex Assigned at Date Recorded Not on file documented as of this encounter Miscellaneous Notes Telephone Encounter - Floresita Miller - 04/09/2022 4:00 PM EDT Placed outgoing phone call to patient in order to schedule a procedure. Phone Call Outcome: Left voicemail asking for return call. This was the 2nd attempt If the call is returned, it can be handled by: Any Endoscopy Venetian Blind Cleaner Letter also sent documented in this encounter Plan of Treatment Upcoming Encounters Date Type Specialty Care Team Description 04/25/2022 Laboratory Appointment Lab 04/25/2022 Office Visit General Surgery Siomara Gorman MD [facility] ER GENERAL SURGERY [place], [place] [address] (Wo rk) 05/14/2022 Office Visit Endocrinology Karina Montalvo MD [facility] ER ENDOCRINOLOGY DE PT [place], [place] [address] (Wo rk) documented as of this encounter Visit Diagnoses Not on filedocumented in this encounter Care Teams Identity Access Management Architect Relationship Specialty Start Date End Date None PCP - General 02/09/22 04/11/22 None documented as of this encounter
--- OUTSIDE RECORDS SUMMARY | 2022-04-18 14:12 | XMS_ITS | Encounter Summary ---
:1995 Author Organization [facility] [place] [address] Care Team Providers Name Role Phone Brendon Vivar Primary Care Provider Encounter Details Date Type Department Care Team Description 04/12/2022 Telephone Hospitalist [place] [address] Social History Tobacco Use Types Packs/Day Years Used Date Never Smoker Smokeless Tobacco: Never Used Alcohol Use Standard Drinks/Week Comments Not Currently 0 (1 standard drink = 0.6 oz pure alcoho l) Sex Assigned at Date Recorded Not on file documented as of this encounter Miscellaneous Notes Telephone Encounter - Mony Whipple CMA - 04/12/2022 12:39 PM EDT Medication Prior Authorization Approval Approved: Teriparatide Start Date: 04/12/2022 End Date: 10/11/2022 Case/Reference #: [id number] See Approval Letter in scanned documents. Telephone Encounter - Kimberli Bahena CMA - 04/12/2022 10:05 AM EDT To Pharmacy/PA Review Tracking # [id number] In reference to Prior Authorization for Pedro Pablo Cortes, I am sending you quantity per dose. Signature for Teriparatide Inject 20 mcg subcutaneously 2 times daily for 30 days Kimberli Chef Saucier Fax Response/PA outcome to [phone] documented in this encounter Plan of Treatment Upcoming Encounters Date Type Specialty Care Team Description 04/25/2022 Laboratory Appointment Lab 04/25/2022 Office Visit General Surgery Siomara Gorman MD [facility] GENERAL SURGERY [place], [place] [address] (Wo rk) 05/14/2022 Office Visit Endocrinology Karina Montalvo MD [facility] ER ENDOCRINOLOGY DE PT [place], [place] [address] (Wo rk) documented as of this encounter Visit Diagnoses Not on filedocumented in this encounter Care Teams Inspection Manager Relationship Specialty Start Date End Date Brendon Vivar DO PCP - General Family Medicine 04/12/22 [address] [facility] [place] [address] documented as of this encounter
--- OUTSIDE RECORDS SUMMARY | 2022-04-18 14:12 | XMS_ITS | Encounter Summary ---
:1995 Author Organization [facility] [place] [address] Care Team Providers Name Role Phone None Primary Care Provider Unavailable Encounter Details Date Type Department Care Team Description 03/29/2022 Telephone Endocrinology at [facility] Minh Montalvo, [facility] [place] [address] [facility] [phone] ENDOCRINOLOGY [place], [place] [address] (Wo rk) Social History Tobacco Use Types Packs/Day Years Used Date Never Smoker Smokeless Tobacco: Never Used Sex Assigned at Date Recorded Not on file documented as of this encounter Miscellaneous Notes Telephone Encounter - Karina Montalvo MD - 03/29/2022 10:56 PM EDT Received call from ANDREW Magaña, at [facility]. 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 Started to have tingling bilat lower ext. Took 8 TUMS today and just picked up calcitriol 0.25 mg today. Mg1.3, Ca 6.7. I recommend IV calcium gluconate, magnesium replacement, continue TUMS 1000 mg tid-qid with meals, and calcitriol 0.25 mg twice a day. If he takes PPI, recommend calcium citrate 950 mg 2 tabs tid. Will arrange the follow up in 1 week in our clinic. Karina Montalvo MD [facility] Endocrinology PGY-4, Fellow Pager #[phone] documented in this encounter Plan of Treatment Upcoming Encounters Date Type Specialty Care Team Description 04/25/2022 Laboratory Appointment Lab 04/25/2022 Office Visit General Surgery Siomara Gorman MD [facility] ER GENERAL SURGERY [place], [place] [address] (Wo rk) 05/14/2022 Office Visit Endocrinology Karina Montalvo MD [facility] ER ENDOCRINOLOGY DE PT [place], [place] [address] (Wo rk) documented as of this encounter Visit Diagnoses Not on filedocumented in this encounter Care Teams Staff Nurse Midwife Relationship Specialty Start Date End Date None PCP - General 02/09/22 04/11/22 None documented as of this encounter
--- OUTSIDE RECORDS SUMMARY | 2022-04-18 14:13 | XMS_ITS | Encounter Summary ---
:1995 Author Organization [facility] Address [place] [id number] Care Team Providers Name Role Phone None Primary Care Provider Unavailable Reason for Referral Diagnostic Test (Routine) - Closed Specialty Diagnoses / Procedures Referred By Contact Refer red To Contact Radiology Diagnoses MEN 1 syndrome Siomara Gorman MD [facility] Rad Ct Scan Procedures CT Abdomen & Pelvis w Contrast CT Abdomen & Pelvis wwo Contrast (Generic) [place] [address] [place] [address] Referral ID Status Reason Start Date Expiration Date Visits V isits Requested Authorized [id number] Closed Specialty 03/11/2022 09/09/2023 1 1 Service Requested Reason for Visit Diagnostic Test (Routine) - Closed Specialty Diagnoses / Procedures Referred By Contact Refer red To Contact Radiology Diagnoses MEN 1 syndrome Siomara Gorman MD [facility] Rad Ct Scan Procedures CT Abdomen & Pelvis w Contrast CT Abdomen & Pelvis wwo Contrast (Generic) [facility] [place] [address] [place] [address] Referral ID Status Reason Start Date Expiration Date Visits V isits Requested Authorized [id number] Closed Specialty 03/11/2022 09/09/2023 1 1 Service Requested Encounter Details Date Type Department Care Team Description 03/14/[address] [facility] Siomara Gorman MEN 1 syndrome [facility] [place] [place] [address] GENERAL SURGERY [phone] [place], [place] [address] (Wo rk) Social History Tobacco Use Types Packs/Day Years Used Date Never Smoker Sex Assigned at Date Recorded Not on file documented as of this encounter Medications at Time of Discharge Medication Sig Dispensed Refills Start Date End Date busPIRone (Buspar) 10 Take 2 tablets by 0 022 mg Tablet mouth 3 times daily. gabapentin (NEURONTIN) Take 600 mg by mouth 3 0 0 02/07/2022 600 mg Tablet times daily. methadone (Dolophine) Take 110 mg by mouth 0 10 mg/mL Concentrate every morning. Senna 8.6 mg Tablet Take 2 tablets by 0 mouth nightly. docusate sodium Take 100 mg by mouth 2 0 02/08/20 22 04/15/2022 (Colace) 100 mg Capsule times daily. traZODone (Desyrel) 100 Take 100 mg by mouth 0 04/15/2022 mg Tablet nightly. cloNIDine (Catapres) 0.1 mg. 0 02/08/202203/17 0.1 mg Tablet doxepin (Silenor) 3 mg 0 10/25/2021 Tablet escitalopram (Lexapro) Take 20 mg by mouth 0 09/1404/07/2022 20 mg Tablet daily. famotidine (Pepcid) 20 TAKE ONE TABLET BY 0 02/1104/07/2022 mg Tablet MOUTH TWICE A DAY FOR STOMACH ACID FLUoxetine (PROzac) 20 Take 3 capsules by 0 02/0804/07/2022 mg Capsule mouth daily. lidocaine (Lidoderm) 5% APPLY 1 PATCH 0 2 04/07/2022 Adhesive Patch, TOPICALLY EVERY DAY Medicated FOR PAIN, PRESS PATCH ON SKIN FOR 10-15 SECONDS TO ACTIVATE ADHESIVE, APPLY ONLY ONCE FOR UP TO 12 HOURS WITHIN A 24 HOUR PERIOD omeprazole (PriLOSEC) Take 20 mg by mouth 0 09/2304/07/2022 20 mg Capsule, Delayed daily. Release(E.C.) QUEtiapine (SEROquel) 50 mg. 0 02/11/2022 100 mg Tablet senna-docusate TAKE ONE TABLET BY 0 02/11/2022 (Pericolace) 8.6-50 mg MOUTH TWICE A DAY FOR Tablet CONSTIPATION documented as of this encounter Plan of Treatment Upcoming Encounters Date Type Specialty Care Team Description 04/25/2022 Laboratory Appointment Lab 04/25/2022 Office Visit General Surgery Siomara Gorman MD [facility] ER GENERAL SURGERY [place], [place] [address] (Wo rk) 05/14/2022 Office Visit Endocrinology Karina Montalvo MD [facility] ER ENDOCRINOLOGY DE PT [place], [place] [address] (Wo rk) documented as of this encounter Procedures Procedure Name Priority Date/Time Associated Diagnosis Comme nts CT ABDOMEN AND Routine 03/14/2022 5:45 PM MEN 1 syndrome Resul ts for this PELVIS W CONTRAST EDT procedure are in the results section. documented in this encounter Results CT Abdomen & Pelvis w Contrast (03/14/2022 [...] who have questions please contact the health rn care transition that requested your imaging first. ? Narrative [...] ho have questions please contact the health rn care transition that requested your imaging first. 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 documented in this encounter Administered Medications Inactive Administered Medications - up to 3 most recent administrations Medication Order MAR Action Action Date Dose Rate Site barium sulfate (Readi-Cat) 2.0 % Given 03/14/2022 5:45 PM EDT 90 0 mLs (w/v) oral liquid 450-900 mL 450-900 mL, Oral, ONCE PRN, 1 dose, Starting on Julianna 03/14/22 at 1745, Until Julianna 03/14/22 at 1745, Per Protocol, Radiology Contrast, Routine iohexoL (Omnipaque) (350 mg/mL) solution Given 03/14/2022 5:45 P M EDT 115 mLs 0-200 mL 0-200 mL, Intravenous, ONCE PRN, 1 dose, Starting on Julianna 03/14/22 at 1745, Until Julianna 03/14/22 at 1745, Per Protocol, Warning Vesicant/Irritant Medication , Radiology Contrast, Routine documented in this encounter Care Teams Multineedle Shirrer Relationship Specialty Start Date End Date None PCP - General 02/09/22 04/11/22 None documented as of this encounter
--- OUTSIDE RECORDS SUMMARY | 2022-04-18 14:13 | XMS_ITS | Encounter Summary ---
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 Joyce Nelson MD [facility] Procedures PRO EXPLORE PARATHYROID GLANDS PRG EMG, LARYNX PARATHYROIDECTOMY OR EXPLORATION OF PARATHYROID(S) (WRVU 15.6) FACIAL NERVE MONITORING, SETUP LARYNGEAL (WRVU 1.57) [facility] [address] Referral ID Status Reason Start Date Expiration Date Visits Requ ested Visits Authorized [id number] 1 1 Encounter Details Date Type Department Care Team Description 03/26/2022 Hospital Outpatient [place], Primary Encounter Surgery Center Joyce Chin MD hyperparathyroidism [facility] DR Philip Strange GENERAL SURGERY [place] [id number] [phone] Social History Tobacco Use Types Packs/Day Years Used Date Never Smoker Smokeless Tobacco: Never Used Sex Assigned at Date Recorded Not on file documented as of this encounter Last Filed Vital Signs Vital Sign Reading Time Taken Comments Blood Pressure 116/78 03/26/2022 5:45 PM EDT Pulse 82 03/26/2022 5:45 PM EDT Temperature 36.7 ??C (98.1 ??F) 03/26/2022 4:29 PM EDT Respiratory Rate 12 03/26/2022 5:15 PM EDT Oxygen Saturation 95% 03/26/2022 6:15 PM EDT Inhaled Oxygen Concentration - - Weight - - Height - - Body Mass Index - - documented in this encounter Discharge Instructions Discharge InstructionsAdrianna Henao RN - 03/26/2022 11:31 AM EDT General Anesthesia Discharge Instructions Go home and rest. You may be sleepy for several hours. Take it easy as sudden position changes may cause nausea and/or dizziness. Use caution on stairs. Follow a light to regular diet as tolerated today. If nausea occurs, start with clear liquids, and progress slowly to a regular diet. Do not drive, operate machinery, drink alcoholic beverages or make any legal decisions after having general anesthesia. The medications given change your reaction time and alter your judgement. IV site -- slight redness is normal, you can use warm compresses. If tenderness and redness increases or foul drainage occurs, please contact your M.D. Patients who have had endotracheal tubes/LMA (tubes used by the anesthesia staff to ensure a safe airway during your operation) may have a sore throat. This is normal and cold liquids or soothing lozenges will help ease this discomfort. Narcotic pain medications can cause constipation, please ask the surgeons office what they recommendfor prevention of this. Some non-pharmaceutical means of constipation prevention include increasing intake of fluids, eating more fruits and vegetables as well as fruit juices. If you are uncomfortable and/or unable to urinate within 8 hours of discharge and it is before 5 pm,call your physician. If it is after 5pm go to the closest emergency room or call the hospital cinder crane operator at [phone] and ask for physician fabrication mig welder covering for your physician. Questions or problems after 5pm or on a weekend: Call the [facility] cinder crane operator at and ask for the physician fabrication mig welder covering for your doctor. At 11:30 am you received 1000 mg of acetaminophen- Your next dose should not be taken before 8 hourshave passed. Next dose not before- 7:30 pm You should not take more than a total of 3000 mg of acetaminophen in a 24 hour period. SCOPOLAMINE PATCH DISCHARGE INSTRUCTIONS You are wearing a scopolamine patch.This is a medication patch used to prevent and treat nausea and vomiting after surgery. The patch is located behind your left ear. Please follow these instructions while you are wearing the patch. Try not to touch the patch. If you do touch the patch, wash your hands right away. Make sure to remove all traces of medication from your hands. If the medication gets on your hands and then you touch your eyes, your vision may become blurry or your pupils may widen. These are both normal and temporary reactions; they will go away shortly. You may remove the patch as early as: tonight BUT must remove it no later than 1:00 pm on 03/28 There will still be some active ingredients on the patch, so fold it in half (with the sticky sides together) and throw it in the trash. This will help prevent others from coming into contact with it. After removing the patch, carefully wash your hands and behind your ear (or wherever the patch was placed) with soap and water. If you have not urinated in 6-8 hours after your surgery, remove the patch and call your surgeon. Patient InstructionsJoAshely marshall MD - 03/26/2022 4:37 PM EDT PARATHYROIDECTOMY PATIENT DISCHARGE INSTRUCTIONS What to Expect Following Surgery: Swelling and/or bruising under and around the incision is normal. It is usually greatest on the second or third day following surgery. You may also feel the sensation of swelling or firmness that can last for a month or more Your scar will be most visible for 1-2 months following your operation and will gradually fade over the next 6-8 months. As it heals, a scar often looks more pink or red than the skin around it. You may feel a ???healing ridge?? directly under the incision. This is completely normal and is theresult of swelling, healing, and scar formation. Usually, this will go away when healing is completein 3-6 months. The skin just above and below your incision will feel numb. This will improve over several months but some patients may have long-term decrease in sensation over these areas. You may notice minor difficulty in swallowing which will improve over time. Your voice may be hoarse or weak at first--this is normal and does not mean there was damage done tothe nerves that make the vocal cords move. Your voice will usually go back to normal after several days to a few weeks. Incision Care: Neck incisions heal rapidly--usually within a week or two. The incision can get wet in the shower 24 hours after surgery. However, do not submerge the incisionunderwater (i.e. bath tub, swimming pool, hot tub, etc.) for at least 2 weeks after your operation. Pat the incision dry immediately following your shower. Do not scrub the area vigorously for the next2 weeks. You have a skin glue closure, and you may notice tiny pieces of yellow/white/sexton material on your washcloth or there may be a thin clear or purplish/sexton crust around the edges of the incision. This is normal. The glue will start to come off about a week after surgery. Do not pull off the skin glue in order to allow time for the incision to heal completely. If there is still some glue on your skin 2weeks after surgery, you may gently wash it away. Do not use any ointments/salves/Vitamin E on the incision for 2 weeks as these may impair early wound healing. After 2 weeks (and after the skin glue is gone), you may apply vitamin E oil or scar creams to the incision. Gentle massage may help soften your scar tissue. Incisions are sensitive to sunlight. For at least 1 year after surgery you should use sunscreen whenoutdoors for long periods of time to prevent permanent darkening of the scar. This includes tanning booths. Pain Management: You may apply ice or cold packs to the incision for 15-20 minutes several times a day for the first 2-3 days following surgery to help with discomfort. You may feel some stiffness/soreness in your shoulders, back, and neck. This may take a few days or weeks to go away completely. You may use moist warm heat, a heating pad, or massage to these areas for 15-20 minutes several times a day. Do not be afraid to move your neck - gently flexing and stretching your neck muscles and light massage will help prevent stiffness NSAIDs (non-steroidal anti-inflammatory drugs) such as ibuprofen (Motrin, Advil) and naproxen (Naprosyn, Aleve) or acetaminophen (Tylenol) are most helpful for the pain experienced after surgery. Generally, these are even more effective than the stronger pain medications (narcotics or opioids) after parathyroid surgery. Take NSAIDS or Tylenol every 6 hours [id number] for the first 3-5 days following surgery to help minimize pain. It is unusual to require opioid pain medications after parathyroid surgery. If you were prescribed oxycodone, use only for severe pain, and never take with alcohol. Opioid medications typically cause constipation, so we suggest using a stool softener in addition (metamucil, colace...etc.). Diet & Activity: No restrictions in your diet are necessary. Activity as tolerated by your comfort level. You may return to work as soon as you would like. However, if your job requires heavy lifting or strenuous physical activity, your surgeon may ask you to wait to return to work for two weeks. NO DRIVING for at least 8 hours following any dose of an opioid pain medication if one was prescribed for you. Pathology Report: All specimens removed at surgery are analyzed by a pathologist. This report usually takes approximately 5-7 business days to be ready. As of September 2020, the reports are released directly to your electronic patient portal as soon as they are available. THIS MAY MEAN THAT YOU WILL SEE THE RESULTS BEFOREYOUR SURGEON DOES!!! Dr. Nelson or Joan Covington APRN, will call you to discuss the report [id number] hours of its release. Follow-up Appointment: Will be scheduled with Dr. Nelson and/or Joan Covington APRN, in 6 weeks If you do not already have a follow up appointment, the date and time as well as any required labs will be mailed to you Please call [phone] to confirm the date and time of your appointment if you do not hear from usin the next 2 weeks Call Doctor for: Call if you have trouble talking or breathing (call 911 if this is severe) Call if you develop numbness or tingling around your mouth/lips or on the tips of your fingers or your hands, as this may mean your calcium is low. This may also be related to pain medication, where the breathing tube was positioned against your lips, the positioning of your arms and hands in the operating room, or how you were positioned when sleeping. If the sensation does not go away within a halfhour, or if it worsens prior to that, call us immediately so we can discuss increasing your calcium if we think you need it. Call if your incision becomes red or begins to drain fluid. Call if you have fevers greater than 101 degrees F Call if you have persistent nausea or vomiting (this may be related to opioid pain medications). Call if you begin feeling worse, rather than better, several days after surgery. Information about Calcium Supplementation WHAT IS THE EFFECT OF SURGERY ON MY CALCIUM LEVELS? The parathyroid glands are responsible for controlling the body???s calcium levels, and you probablyneeded parathyroid surgery because your calcium level was too high. However, after we remove the abnormal gland(s), the remaining parathyroids frequently do not work perfectly right away. This can result in a decrease in blood calcium levels. This is usually temporary and the remaining parathyroid glands almost always make a full recovery. WHAT ARE THE SYMPTOMS OF LOW CALCIUM? If the calcium level in the blood stream decreases after surgery, you may experience symptoms of numbness, tingling, or cramps in the fingers, toes, legs, or around the mouth. WHAT ARE CALCIUM SUPPLEMENTS? Each over the counter calcium supplement tablet is approximately 500-600 mg. There are several different types of calcium sold over the counter. Some of the more common brands you will see include: Tums, Viactiv, Citracal, Caltrate. The two main forms of calcium in supplements are carbonate and citrate. Calcium carbonate (Tums, Viactiv) is absorbed most efficiently when taken with food, whereas calcium citrate (Citracal) is absorbed equally well when taken with or without food. HOW MUCH CALCIUM SHOULD I TAKE AFTER SURGERY? The exact dose of calcium that is right for you after surgery depends on several factors including the type and extent of surgery. Most patients will temporarily require some extra calcium as the parathyroid glands recover. You probably already purchased calcium supplements after reviewing your preoperative handout. A good guideline is to start with 600-1200 mg (1-2 over the counter supplements) twice a day. If younotice symptoms of numbness/tingling, you may need to take it more frequently (up to 3-4 times per day). If you have no symptoms, the dose can be gradually decreased and the extra calcium stopped altogether within a few days of surgery. WHAT ABOUT VITAMIN D? Vitamin D can be very helpful with calcium levels, as adequate vitamin D stores in the body help your body absorb calcium. If you were on Vitamin D prior to surgery, this can be resumed post-operatively. Additional Vitamin D may be included in your calcium supplement, this is fine as well. If you are not on Vitamin D and would like to start after surgery, an over the counter supplement [id number] IU is the usual recommended dosage, however, if you are on other medications or have other health issues, you will want to discuss this with your PCP. If your surgeon is concerned about your calcium levels, (s)he may prescribe a different form of vitamin D called Rocaltrol (Calcitriol). This should be taken as instructed. Note that this is not a replacement for calcium, it should be taken in addition to the recommended calcium supplements to help with absorption. COMMONLY ASKED QUESTIONS: Are there side effects to calcium supplements? The most common side effect is constipation and stomach upset. If you are taking high doses of calcium after surgery, be sure to include a stool softener or laxative as needed. Minimize narcotics, as these can also cause constipation. Finally, decrease your calcium supplements if you note no symptoms of low calcium as noted above. Do I need a blood test after surgery to check my calcium levels? Your calcium level will be checkedat your routine follow up visit to make sure it has returned to normal. You will most likely be off the postoperative supplements by then. Our bodies will signal us that the calcium level is low with the symptoms noted above. If you do not have these symptoms, then most likely your calcium level is just fine. Should I take a long-term calcium supplement? Routine calcium supplements can be good for general bone health, especially if you have osteoporosis as a result of your hyperparathyroidism. We recommendthat you discuss long-term supplementation with your PCP. Phone number for questions: [phone] before 5 PM on weekdays [phone] after 5 PM and on weekends/holidays. Ask for the general surgery resident fabrication mig welder. documented in this encounter Medications at Time [...] 2 tablets by 0 2 mouth nightly. docusate sodium Take 100 mg [...] Tablet CONSTIPATION documented as of this encounter Progress Notes Adrianna Henao RN - 03/26/2022 6:32 PM EDTSummary: [facility] discharge Patient settled into post, no airway noted, on arrival noted nailbeds had a dusky blue tinge, Pox at88, NEWBORN HEARING SCREENER held jaw thrust with good effect. Continued pauses in respirations, Pox low 90s, Nasal and oral airway and jaw thrust until patient settled down and maintained airway on own, sats upper 90's. Continued monitoring VS as indicated, report from NEWBORN HEARING SCREENER / Anesthesia. Report from Resident, verbal order for PTH to be drawn in post, confirmed patient does not need to wait for results. PTH drawn and sent to lab. Patient resting in bed, airways in place, no distress noted at this time, call ennis and nurse at bedside. Noted pauses at time in respirations, question un-dx'd JOSE JUAN, anesthesia aware. 1730, pa christian moving on own, confused and lethargic, followed commands to open mouth and oral airway removed. Patient then falls back asleep. Mother in to bed side. Patient discharge instructions and medications reviewed with patient and mother prior to discharge, all questions answered, both verbalized understanding. Written instructions and medication log sent home with mother for patient. Patient assistedto bathroom and car by [facility] staff, gait steady, no complaints and all personal items with patient on discharge. documented in this encounter H&P Notes Ashely Templeton MD - 03/26/2022 1:15 PM EDT General Surgery Interval H&P HPI: Pedro Pablo Cortes is a 26 y.o. male with MEN-1 (genetic testing results not available to me at this time) and symptomatic biochemical primary hyperparathyroidism who presents for parathyroidectomy. Patient denies any interval changes in health. No recent fevers or infections. No new medications or medical diagnoses. O: Patient Vitals for the past 24 hrs: Temp Pulse Resp BP SpO2 O2 Device 03/26/22 1104 37.2 ??C (99 ??F) 100 20 116/70 98 % RA Physical Exam: General: NAD, resting comfortably, pleasant, conversant HEENT: NCAT, EOMI CVS: Regular rate Pulm: nonlabored breathing on room air Skin: warm, dry Ext: no cyanosis, cap refill <2sec Neuro: grossly intact, nonfocal, moving all four extremities spontaneously ASSESSMENT/PLAN: Pedro Pablo Cortes is a 26 y.o. here for parathyroidectomy with IOPTH. A consent was signed, all questions were answered, and the patient would like to proceed as planned. Ashely Templeton MD PGY-3, General Surgery documented in this encounter Miscellaneous Notes Brief Op Note - Joyce Nelson MD - 03/26/2022 4:08 PM EDT Brief Operative Note Patient Name: Pedro Pablo Cortes : [id number] MR#: [id number] Case Date: 03/26/2022 Surgeon: Surgeon(s) and Role: * Joyce Nelson MD - Primary * Ashely Templeton MD - Resident Preoperative diagnosis: MEN 1 SYNDROME Postoperative diagnosis: MEN 1 SYNDROME Procedure(s) (LRB): PARATHYROIDECTOMY OR EXPLORATION OF PARATHYROID(S) (WRVU 15.6) (N/A) FACIAL NERVE MONITORING, SETUP LARYNGEAL (WRVU 1.57) (N/A) Anesthesia: General Findings: asymmetrical four-gland parathyroid hyperplasia. NORMAN>>>RU>RL ~LL. Normal-sized remnant created from the right lower (confirmed on frozen), marked with metal clip and is located just inferior to right thyroid lobe. Right central neck dissection (no obvious tongue of cervical thymuson the right) and left cervical thymectomy done. Right RLN intact throughout. Left RLN never clearlyvisualized, but consistently intact vagus nerve signal. Complications: none apparent Intake: Intraprocedure Crystalloid Total Intake Lactated Ringers 500.00 mL Total Intake 500 mL Transfusion No data found in the last 1 encounters. Output: Estimated Blood Loss: Urine Output:: (no urine output recorded) Other Output: (no other output recorded) Drains: none Specimens removed during surgery: Order Name Source Comment Collection Info Order Time PATHOLOGY ORDER UPDATE 03/26/2022 2:26 PM Additional information: Cancellation Enter requested changes: cancel eD-H Order Id number [id number] SPECIMEN TO PATHOLOGY Frozen specimen MEN 1 SYNDROME right lower parathyroid versus lymph node excision No 03/26/2022 3:07 PM Time specimen removed from patient: 3:04 PM Number of tissue samples (in container) 1 SPECIMEN TO PATHOLOGY Right upper parathyroid MEN 1 SYNDROME right upper parathyroid excision No 03/26/2022 3:19 PM Time specimen removed from patient: 3:16 PM Number of tissue samples (in container) 1 SPECIMEN TO PATHOLOGY right central neck content MEN 1 SYNDROME right central neck content excision No 03/26/2022 3:22 PM Time specimen removed from patient: 3:21 PM Number of tissue samples (in container) 1 SPECIMEN TO PATHOLOGY left upper parathyroid MEN 1 SYNDROME left upper parathyroid excision No 03/26/2022 3:41 PM Time specimen removed from patient: 3:39 PM Number of tissue samples (in container) 1 SPECIMEN TO PATHOLOGY Left cervical thymus MEN 1 SYNDROME left cervical thymus excision No 03/26/2022 3:53 PM Time specimen removed from patient: 3:50 PM Number of tissue samples (in container) 1 SPECIMEN TO PATHOLOGY Left lower parathyroid MEN 1 SYNDROME left lower parathyroid excision No 03/26/2022 4:02 PM Time specimen removed from patient: 4:01 PM Number of tissue samples (in container) 1 Disposition: awakened from anesthesia, extubated and taken to the recovery room in a stable condition, having suffered no apparent untoward event. Condition: doing well without problems Attestation: Case Date: 03/26/2022 I was present and I participated during the entire procedure (does not need to include opening and closing). (Please see the Surgical Encounter Summary for any Implant and Specimen details pertinent to this patient.) Surgical Infection Prevention Bundle Used? N/A Op Note - Joyce Nelson MD - 03/26/2022 2:08 PM EDT [facility] [place] Patient Name: Pedro Pablo Cortes : [id number] MR#: [id number] Case Date: 03/26/2022 Surgeon: Surgeon(s) and Role: * Joyce Nelson MD - Primary * Ashely Templeton MD - Resident Preoperative diagnosis: MEN 1 SYNDROME Postoperative diagnosis: MEN 1 SYNDROME Procedure(s) (LRB): PARATHYROIDECTOMY OR EXPLORATION OF PARATHYROID(S) (WRVU 15.6) (N/A) FACIAL NERVE MONITORING, SETUP LARYNGEAL (WRVU 1.57) (N/A) Anesthesia: General Estimated Blood Loss: 17 mL Specimens removed during surgery: Order Name Source Comment Collection Info Order Time PATHOLOGY ORDER UPDATE 03/26/2022 2:26 PM Additional information: Cancellation Enter requested changes: cancel eD-H Order Id number [id number] SPECIMEN TO PATHOLOGY Frozen specimen MEN 1 SYNDROME right lower parathyroid versus lymph node excision No 03/26/2022 3:07 PM Time specimen removed from patient: 3:04 PM Number of tissue samples (in container) 1 SPECIMEN TO PATHOLOGY Right upper parathyroid MEN 1 SYNDROME right upper parathyroid excision No 03/26/2022 3:19 PM Time specimen removed from patient: 3:16 PM Number of tissue samples (in container) 1 SPECIMEN TO PATHOLOGY right central neck content MEN 1 SYNDROME right central neck content excision No 03/26/2022 3:22 PM Time specimen removed from patient: 3:21 PM Number of tissue samples (in container) 1 SPECIMEN TO PATHOLOGY left upper parathyroid MEN 1 SYNDROME left upper parathyroid excision No 03/26/2022 3:41 PM Time specimen removed from patient: 3:39 PM Number of tissue samples (in container) 1 SPECIMEN TO PATHOLOGY Left cervical thymus MEN 1 SYNDROME left cervical thymus excision No 03/26/2022 3:53 PM Time specimen removed from patient: 3:50 PM Number of tissue samples (in container) 1 SPECIMEN TO PATHOLOGY Left lower parathyroid MEN 1 SYNDROME left lower parathyroid excision No 03/26/2022 4:02 PM Time specimen removed from patient: 4:01 PM Number of tissue samples (in container) 1 Drains: * No LDAs found * Surgical Closure: Primary Closure - skin incision is completely closed without any wires, hiram, drains or other devices Disposition: awakened from anesthesia, extubated and taken to the recovery room in a stable condition, having suffered no apparent untoward event. Condition: doing well without problems (Please see the Surgical Encounter Summary for any Implant and Specimen details pertinent to this patient.) HPI/Surgical Indications: Mr. Pedro Pablo Cortes is a 26 y.o. 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 Since his genetic testing 7-8 years ago, he has had no surveillance. His subsequent workup revealed elevations in both prolactin and gastrin, but imaging has been negative so far. He presents today for subtotal parathyroidectomy. Procedure Description: The patient was taken to the operating room and placed on the operating tablein the supine position. Adequate general anesthesia was completed by anesthesiology with the [employer] recurrent laryngeal nerve monitoring system. A crease on the anterior neck was identified and marked, and this area was infiltrated with 10 cc 0.25% marcaine with epinephrine. He was then prepped anddraped in the usual sterile fashion over the anterior neck. A timeout procedure was done, and all members of the OR team were in agreement. The procedure began by making a curvilinear incision along the lower anterior neck along the previously marked skin crease with a scalpel. Electrocautery was used to continue dissection through the subcutaneous tissue and through the platysma muscle. Subplatysmal flaps were created in cranial and caudal directions. The median raphe of the strap muscles was divided with electrocautery. We developed a plane between the left strap muscles down to the left internal jugular vein, and rissa a baseline PTH from the internal jugular vein. IOPTH levels are noted in the table below. We then dissected the strap muscles off the thyroid lobe out to its lateral aspect. The middle thyroidal veins were ligated. Wedissected into the paratracheal and paraesophageal space and identified the recurrent laryngeal nerve as it ran into the tracheoesophageal groove and carefully preserved this. We identified a left upper parathyroid gland in the normal anatomic position which was markedly enlarged. We dissected it freeonto its vascular pedicle. We then identified a candidate left lower parathyroid gland that was relatively normal in appearance adherent to the left inferior pole of the thyroid. We then turned our attention to the right side. Exposure was obtained in an identical way by dissecting the strap muscles off the anterior and lateral surface of the thyroid and retracting the lobe medially. An enlarged right upper parathyroid (but not nearly as much as the left upper) was identified in normal anatomic position. This was removed by ligating its vascular pedicle with a silk tie. We then identified a candidate right lower parathyroid in the thyrothymic ligament, just inferior to the right thyroid lobe that appeared very slightly enlarged. We divided that gland in half and sent the removed portion to pathology for confirmation that it was parathyroid tissue (it was). The remnant was marked with a medium metal clip. We did not see an obvious tongue of right cervical thymus, but a limited right central neck dissection was done and the central neck contents were sent to pathology. We turned back to the left side and removed the markedly enlarged left upper parathyroid. We then worked on dissecting the left lower parathyroid off the thyroid capsule, thinking it might be a good candidate for the remnant, but in the process of dissecting it away from the thyroid lobe, we were not convinced it was viable and decided to remove the entire thing to be sent to pathology. Before we didthis, we visualized the right lower remnant again and confirmed that it still remained viable. We then identified a tongue of left cervical thymus and pulled it up out of the mediastinum until it no longer delivered easily. It was amputated with the Ligasure device and sent to pathology. We then irrigated the operative field on both sides. A Valsalva to 30 millimeters of mercury was accomplished by Anesthesia. Hemostasis was assured. The right recurrent laryngeal nerve was tested again, and it was fully functional on the nerve monitor. The left recurrent laryngeal nerve was never well-visualized, but there was a signal in the TE groove and in the vagus nerve with the NIM, so it was assumed to be intact. We placed Surgicel in the paratracheal spaces bilaterally, closed the strap muscles using running 3-0 Vicryl suture, the platysma with interrupted 3-0 Vicryl suture, and the skin wit h running 5-0 Prolene subcuticular suture. We then placed Dermabond on the incision and removed the Prolene suture. A final PTH level will be checked in recovery. Surgical Infection Prevention Bundle Used? N/A Attestation: Case Date: 03/26/2022 I was present and I participated during the entire procedure (does not need to include opening and closing). JOYCE NELSON MD 03/26/2022 documented in this encounter Plan of Treatment Upcoming Encounters Date Type Specialty Care Team Description 04/25/2022 Laboratory Appointment Lab 04/25/2022 Office Visit General Surgery Joyce Nelson MD [facility] GENERAL SURGERY [place], [place] [address] (Wo rk) 05/14/2022 Office Visit Endocrinology Karina Montalvo MD [facility] ENDOCRINOLOGY [place], [place] [address] (Wo rk) Scheduled Orders Name Type Priority Associated Diagnoses Order S chedule Calcium Lab Routine Primary hyperparathyroidism Expected: 05/07/2022 (Approximate), Expires: 2022 PTH Lab Routine Primary hyperparathyroidism Expected: 05/07/2022 (Approximate), Expires: 2022 documented as of this encounter Procedures Procedure Name Priority Date/Time Associated Comments Diagnosis HC PARATHYROID STAT 03/26/2022 5:05 Results fo [...] EXPLORATION OF PM EDT PARATHYROID(S) (WRVU 15.6) documented in this encounter Results (ABNORMAL) PTH (03/26/2022 5:05 PM EDT) P athologist Signature PTH 12 (L) 15 - 65 [facility] pg/mL [facility] Specimen Anatomical Collection Method Collection Time Receive d Time (Source) Location / / Volume Laterality Blood 03/26/2022 5:05 PM 2 5:38 EDT PM EDT Resulting Agency Comment Spec In Lab Joyce Nelson MD CHEMISTRY ORDERABLES Performing Organization Address [facility] [place] [address] Specimen to Pathology (03/26/2022 4:02 PM EDT) Specimen Anatomical Collection Method Collection Time Receive d Time (Source) Location / / Volume Laterality AP Specimen 03/26/2022 4:02 PM 2 4:02 EDT PM EDT Narrative [facility] [place] 03/26/2022 4:02 PM EDT Specimen requisition ordered. ??Separate Pathology report to follow Joyce Nelson MD PATHOLOGY/CYTOLOGY ORDERABLE S Performing Organization Address [facility] [place] [address] Specimen to Pathology (03/26/2022 3:53 PM EDT) Specimen Anatomical Collection Method Collection Time Receive d Time (Source) Location / / Volume Laterality AP Specimen 03/26/2022 3:53 PM 2 3:53 EDT PM EDT Narrative [facility] [place] 03/26/2022 3:53 PM EDT Specimen requisition ordered. ??Separate Pathology report to follow Joyce Nelson MD PATHOLOGY/CYTOLOGY ORDERABLE S Performing Organization Address City/[facility]/[place] [address] Specimen to Pathology (03/26/2022 3:41 PM EDT) Specimen Anatomical Collection Method Collection Time Receive d Time (Source) Location / / Volume Laterality AP Specimen 03/26/2022 3:41 PM 2 3:41 EDT PM EDT Narrative [facility] [place] 03/26/2022 3:41 PM EDT Specimen requisition ordered. ??Separate Pathology report to follow Joyce Nelson MD PATHOLOGY/CYTOLOGY ORDERABLE S Performing Organization Address City/[facility]/[place] [address] Specimen to Pathology (03/26/2022 3:22 PM EDT) Specimen Anatomical Collection Method Collection Time Receive d Time (Source) Location / / Volume Laterality AP Specimen 03/26/2022 3:22 PM 2 3:22 EDT PM EDT Narrative [facility] OR - 03/26/2022 3:22 PM EDT Specimen requisition ordered. ??Separate Pathology report to follow Joyce Nelson MD PATHOLOGY/CYTOLOGY ORDERABLE S Performing Organization Address City/State/ZIP Code Phon e Number [address] Specimen to Pathology (03/26/2022 3:19 PM EDT) Specimen Anatomical Collection Method Collection Time Receive d Time (Source) Location / / Volume Laterality AP Specimen 03/26/2022 3:19 PM 2 3:19 EDT PM EDT Narrative [facility] [place] 03/26/2022 3:19 PM EDT Specimen requisition ordered. ??Separate Pathology report to follow Joyce Nelson MD PATHOLOGY/CYTOLOGY ORDERABLE S Performing Organization Address City/[facility]/ZIP Code Phon e Number [address] Surgical Pathology Report (03/26/2022 3:07 PM EDT) Component Value Ref Test Analysis Performed At [facility] Method Time [facility] [id number] ? Location: [facility] Report The signing pathologist has (i) examined the relevant preparation(s) for the MEMORIAL specimen(s) and (ii) rendered or confirmed the [...] Chin Verified: ??04/03/2022 11:47 ??Pathologist Performed at: ??-[facility] [place], [place], [place] SPECIMEN(S) SUBMITTED A - right lower [...] MD Verified: ??03/26/2022 15:47 ??Pathologist Performed at: ??-[facility] [place], [place], [place] This intraoperative consultation should be interpreted as a preliminary diagnosis pending review of the entire specimen and sp ecial studies, if any. A final Surgical Pathology report will follow th is preliminary Frozen Section report(s). Specimen (Source) Anatomical Collection Method Collection Time Re ceived Time Location / / Volume Laterality 03/26/2022 3:07 PM EDT Joyce Nelson MD PATHOLOGY/CYTOLOGY ORDERABLE S Performing Organization Address City/State/[place] [address] Specimen to Pathology (03/26/2022 3:07 PM EDT) Specimen Anatomical Collection Method Collection Time Receive d Time (Source) Location / / Volume Laterality AP Specimen 03/26/2022 3:07 PM 3:07 EDT PM EDT Narrative [facility] - 03/26/2022 3:07 PM EDT Specimen requisition ordered. ??Separate Pathology report to follow Joyce Nelson MD PATHOLOGY/CYTOLOGY ORDERABLE S Performing Organization Address City/State/[place] [address] (ABNORMAL) Intraoperative PTH ([facility] (03/26/2022 2:27 PM EDT) Patholo gist Method Time Signature Intraoper PTH 1,887 (H) 15 - [facility] Comment: Called by: dvae, Read back by: Amador fraser, Date/Time:03/26/22 15:06. IOP-PTH baseline A 50 % decrease in venous iPTH levels at 10 min post adenoma excision is expected if all the hypersecreting parat hyroid tissue has been removed (Jose GL et al. Surgery 1993:114; [id number]) Specimen Anatomical Collection Method Collection Time Receive d Time (Source) Location / / Volume Laterality Blood 03/26/2022 2:27 PM 2 2:39 EDT PM EDT Resulting Agency Comment Spec In Lab Joyce Nelson MD CHEMISTRY ORDERABLES Performing Organization Address [facility]/ZIP Code Phon e Number [address] documented in this encounter Visit Diagnoses Diagnosis Primary hyperparathyroidism documented in this encounter Administered Medications Inactive Administered Medications - up to 3 most recent administrations Medication Order MAR Action Action Date Dose Rate Site acetaminophen (Tylenol) tablet Given 03/26/2022 11:09 AM EDT 1,0 00 mg 1,000 mg 1,000 mg, Oral, ONCE, 1 dose, On Fri03/26/22 at 1115, Administer with SIP of H2O only. Maximum dose of acetaminophen is 4,000 mg from all sources in 24 hours., Day of Surgery (Day of Procedure), Routine acetaminophen (Tylenol) tablet 1,000 mg Given 03/26/2022 6:08 PM EDT 1,000 mg 1,000 mg, Oral, EVERY 6 HOURS PRN, Starting on Fri03/26/22 at 1807, Until Fri03/26/22 at 1833, Pain, Maximum dose of acetaminophen is 4000 mg from all sources in 24 hours. When ordered for pain, acetaminophen should be given even when other ordered pain medications are indicated. , PACU Recovery, Routine lactated ringers infusion New Bag 03/26/2022 11:31 AM EDT 1,000 mLs 100 mL/hr 1,000 mL, at 100 mL/hr, Intravenous, CONTINUOUS, Starting on Fri03/26/22 at 1115, Until Fri03/26/22 at 1833, Day of Surgery (Day of Procedure) scopolamine (Transderm Patch Applied 03/26/2022 1:01 PM 1 patch 01- Ear Behind Scop) 1 mg over 3 days EDT (L eft) patch 1 patch 1 patch, Transdermal, ONCE, 1 dose, On Fri03/26/22 at 1315, Day of Surgery (Day of Procedure), Routine scopolamine (Transderm-Scop) 1 mg patch Patch Removal Transdermal, ONCE, 1 dose, On Fri at 1300, Remove scopolamine 1 mg patch, Recovery (Recovery-Hospital Unit) scopolamine (Transderm-Scop) 1 mg patch Patch Verification Transdermal, 2 TIMES DAILY, 2 doses, Fir st dose on Fri03/27/22 at 0100, Last dose on Fri03/27/22 at 0900, Verify scopolamine 1 mg patch ., Recovery (Recovery-Hospital Unit) documented in this encounter Active and Recently Administered Medications Times are shown in EDT. Scheduled Medication Order 03/24/2022 03/25/2022 03/26/2022 acetaminophen (Tylenol) tablet 1,000 mg (COMPLETED) 1109 (Given - Provider: Pamela Armas RN) 1,000 mg, Oral, ONCE, 1 dose, On 05/07 at 1115, Administer with SIP of H2O only. Maximum dose of acetaminophen is 4,000 mg from all sources in 24 hours., Day of Surgery (Day of Procedure), Routine scopolamine (Transderm Scop) 1 mg over 3 days patch 1 patch (COM PLETED) 1301 (Patch Applied - Provider: Vaishnavi Fernandez RN) 1 patch, Transdermal, ONCE, 1 dose, On T u03/26/22 at 1315, Day of Surgery (Day of Procedure), Routine scopolamine (Transderm-Scop) 1 mg patch Patch Removal Transdermal, ONCE, 1 dose, On Fri at 1300, Remove scopolamine 1 mg patch, Recovery (Recovery-Hospital Unit) scopolamine (Transderm-Scop) 1 mg patch Patch Verification Transdermal, 2 TIMES DAILY, 2 doses, Fir st dose on Fri03/27/22 at 0100, Last dose on Fri03/27/22 at 0900, Verify scopolamine 1 mg patch., Recovery (Recovery-Hospital Unit) Continuous Medication Order 03/24/2022 03/25/2022 03/26/2022 lactated ringers infusion (CANCELED) 1131 (New Bag - Provider: Pamela Dick V, SHWETHA) 1,000 mL, at 100 mL/hr, Intravenous, CON TINUOUS, Starting on Fri03/26/22 at 1115, Until Fri03/26/22 at 1833, Day of Surgery (Day of Procedure) PRN Medication Order 03/24/2022 03/25/2022 03/26/2022 acetaminophen (Tylenol) tablet 1,000 mg (CANCELED) 1808 (Given - Provider: Adrianna Henao, SHWETHA) 1,000 mg, Oral, EVERY 6 HOURS PRN, Start ing on Fri03/26/22 at 1807, Until Fri03/26/22 at 1833, Pain, Maximum dose of acetaminophen is 4000 mg from all sources in 24 hours. When ordered for pain, aceta minophen should be given even when other ordered pain medications are indicated. , PACU Recovery, Routine BUpivacaine-EPINEPHrine (Marcaine-epiNEP Hrine) 0.25 %-1:200,000 injection (CANCELED) 1429 (Given - Provid er: Ashely Templeton MD) ONCE PRN, Starting on Fri03/26/22 at 14 29, Until Fri03/26/22 at 2105, Intra- Operative (Intra-Procedure), Routine documented in this encounter Care Teams Hot Dip Galvanizer Relationship Specialty Start Date End Date None PCP - General 02/09/22 04/11/22 None documented as of this encounter
--- OUTSIDE RECORDS SUMMARY | 2022-04-18 14:13 | XMS_ITS | Encounter Summary ---
:1995 Author Organization [facility] [place] [address] Care Team Providers Name Role Phone None Primary Care Provider Unavailable Encounter Details Date Type Department Care Team Description 03/11/2022 Orders Only General Surgery at [facility] [place] Siomara Gorman MD [facility] [place] [phone] GENERAL SURGERY [phone] [place], [place] [address] (Wo rk) Social History Tobacco Use Types Packs/Day Years Used Date Never Smoker Sex Assigned at Date Recorded Not on file documented as of this encounter Plan of Treatment Upcoming Encounters Date Type Specialty Care Team Description 04/25/2022 Laboratory Appointment Lab 04/25/2022 Office Visit General Surgery Siomara Gorman MD [facility] GENERAL SURGERY [place], [place] [address] (Wo rk) 05/14/2022 Office Visit Endocrinology Karina Montalvo MD [facility] ENDOCRINOLOGY DE PT [place], [place] [address] (Wo rk) documented as of this encounter Visit Diagnoses Not on filedocumented in this encounter Care Teams Ear Pull Machine Operator Relationship Specialty Start Date End Date None PCP - General 02/09/22 04/11/22 None documented as of this encounter
--- OUTSIDE RECORDS SUMMARY | 2022-04-18 14:13 | XMS_ITS | Encounter Summary ---
:1995 Author Organization [facility] [place] [address] Care Team Providers Name Role Phone None Primary Care Provider Unavailable Encounter Details Date Type Department Care Team Description 02/09/2022 Interpretation Only [facility] Panda Carroll, [address] [id number] [phone] Social History Tobacco Use Types Packs/Day Years Used Date Never Assessed Sex Assigned at Date Recorded Not on file documented as of this encounter Plan of Treatment Upcoming Encounters Date Type Specialty Care Team Description 04/25/2022 Laboratory Appointment Lab 04/25/2022 Office Visit General Surgery Siomara Gorman MD [facility] GENERAL SURGERY [place], [place] [address] (Wo rk) 05/14/2022 Office Visit Endocrinology Karina Montalvo MD [facility] ER ENDOCRINOLOGY DE PT [place], [place] [address] (Wo rk) documented as of this encounter Visit Diagnoses Not on filedocumented in this encounter Care Teams Occupational Health And Safety Officer Relationship Specialty Start Date End Date None PCP - General 02/09/22 04/11/22 None documented as of this encounter
--- OUTSIDE RECORDS SUMMARY | 2022-04-18 14:13 | XMS_ITS | Encounter Summary ---
:1995 Author Organization [facility] Address [place] [id number] Care Team Providers Name Role Phone None Primary Care Provider Unavailable Reason for Referral Diagnostic Test (Routine) - Closed Specialty Diagnoses / Procedures Referred By Contact Refer red To Contact Radiology Diagnoses MEN 1 (multiple endocrine neoplasia) Siomara Gorman MD [facility] Rad Mri Procedures MRI Pituitary wwo Contrast MRI Brain wwo Contrast (Generic) [place] [address] [place] [address] Referral ID Status Reason Start Date Expiration Date Visits V isits Requested Authorized [id number] Closed Specialty 02/21/2022 08/22/2023 1 1 Service Requested Reason for Visit Diagnostic Test (Routine) - Closed Specialty Diagnoses / Procedures Referred By Contact Refer red To Contact Radiology Diagnoses MEN 1 (multiple endocrine neoplasia) Siomara Gorman MD [facility] Rad Mri Procedures MRI Pituitary wwo Contrast MRI Brain wwo Contrast (Generic) [place] [address] [place] [address] Referral ID Status Reason Start Date Expiration Date Visits V isits Requested Authorized [id number] Closed Specialty 02/21/2022 08/22/2023 1 1 Service Requested Encounter Details Date Type Department Care Team Description 03/12/2022 [place] [facility] [place] RASHAD 1 (multiple [facility] Monica Valentino endocrine neoplasia) Drive [place], [place] [address] GENERAL SURGERY [phone] [place], [place] [address] Social History Tobacco Use Types Packs/Day Years [...] MD [facility] GENERAL SURGERY [place], [place] [address] (Wo rk) 05/14/2022 Office Visit Endocrinology Karina Montalvo MD [facility] ENDOCRINOLOGY DE PT [place], [place] [address] (Wo rk) documented as of this encounter Procedures Procedure Name Priority Date/Time Associated Diagnosis Comme nts MRI PITUITARY WWO Routine 03/12/2022 5:30 PM MEN 1 (multiple R esults for this CONTRAST EDT endocrine neoplasia) procedu re are in the results section. documented in this encounter Results MRI Pituitary wwo Contrast (03/12/2022 5:30 PM [...] who have questions please contact the health landcare facilitator that requested your imaging first. ? Electronically signed by: Jamaal English MD, [facility] ([phone]), at 03/13/2022 9:33 AM Narrative 03/13/2022 9:33 AM EDT EXAMINATION: MRI [...] ho have questions please contact the health landcare facilitator that requested your imaging first. 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 documented in this encounter Administered Medications Inactive Administered Medications - up to 3 most recent administrations Medication Order MAR Action Action Date Dose Rate Site gadoterate meglumine (Dotarem) Given 03/12/2022 5:30 PM EDT 19 m Ls (0.5 mMol/mL) injection solution 0-100 mL 0-100 mL, Intravenous, ONCE PRN, 1 dose, Starting on Fri03/12/22 at 1654, Until Fri03/12/22 at 1730, Per Protocol, Radiology Contrast, Routine documented in this encounter Care Teams Rod Puller Relationship Specialty Start Date End Date None PCP - General 02/09/22 04/11/22 None documented as of this encounter
--- OUTSIDE RECORDS SUMMARY | 2022-04-18 14:13 | XMS_ITS | Encounter Summary ---
:1995 Author Organization [facility] Address [address] [place] [place] [address] Care Team Providers Name Role Phone None Primary Care Provider Unavailable Encounter Details Date Type Department Care Team Description 03/12/2022 Hospital Encounter XRay at [facility] RASHAD Gorman 1 ([address] Siomara Chin MD endocrine neoplasia) [facility] [address] [place] [phone] GENERAL SURGERY [place], [place] [address] Social History Tobacco Use Types [...] Tablet nightly. cloNIDine (Catapres) 0.1 mg. 0 02/08/2022 1008/2021 0.1 mg Tablet doxepin (Silenor) 3 mg 0 10/25/2021 Tablet escitalopram (Lexapro) Take 20 mg by mouth 0 04/01/202204/07/2022 20 mg Tablet daily. famotidine (Pepcid) 20 [...] Office Visit General Surgery Siomara Gorman MD [facility] GENERAL SURGERY [place], [place] [address] (Wo rk) 05/14/2022 Office Visit Endocrinology Karina Montalvo MD [facility] ENDOCRINOLOGY [place], [place] [address] (Wo rk) documented as of this encounter Procedures Procedure Name Priority Date/Time Associated Diagnosis Comme nts XR PRE MRI ORBITS Routine 03/12/2022 3:32 PM MEN 1 (multiple R esults for this EDT endocrine neoplasia) procedu re are in the results section. documented in this encounter Results XR Pre MRI Orbits (Generic) (03/12/2022 3:32 [...] who have questions please contact the health health care consultant that requested your imaging first. ? Electronically signed by: Kierra Barillas MD, [facility] ([phone]), at 03/12/2022 4:17 PM Narrative 03/12/2022 4:17 PM EDT EXAMINATION: XR [...] ho have questions please contact the health health care consultant that requested your imaging first. 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
--- OUTSIDE RECORDS SUMMARY | 2022-04-18 14:13 | XMS_ITS | Encounter Summary ---
:1995 Author Organization [facility] [place] [address] Care Team Providers Name Role Phone None Primary Care Provider Unavailable Reason for Referral Diagnostic Test (Routine) - Closed Specialty Diagnoses / Procedures Referred By Contact Refer red To Contact Radiology Diagnoses MEN 1 syndrome Siomara Gorman MD [facility] Rad Ct Scan Procedures CT Abdomen & Pelvis w Contrast CT Abdomen & Pelvis wwo Contrast (Generic) [facility] [place] [address] [place] [address] Referral ID Status Reason Start Date Expiration Date Visits V isits Requested Authorized [id number] Closed Specialty 03/11/2022 09/09/2023 1 1 Service Requested Encounter Details Date Type Department Care Team Description 03/11/2022 Orders Only General Surgery at [facility] Siomara Gorman, MEN 1 syndrome [facility] [place] [address] [facility] [phone] GENERAL SURGERY [place], [place] [address] (Wo rk) Social History Tobacco Use Types Packs/Day Years Used Date Never Smoker Sex Assigned at Date Recorded Not on file documented as of this encounter Plan of Treatment Upcoming Encounters Date Type Specialty Care Team Description 04/25/2022 Laboratory Appointment Lab 04/25/2022 Office Visit General Surgery Siomara Gorman MD [facility] ER GENERAL SURGERY [place], [place] [address] (Wo rk) 05/14/2022 Office Visit Endocrinology Karina Montalvo MD [facility] ER ENDOCRINOLOGY [place], [place] [address] (Wo rk) documented as of this encounter Results CT Abdomen & Pelvis [...] who have questions please contact the health care asst that requested your imaging first. ? Electronically signed by: Ricardo pitts MD, [facility] ([phone]), at 03/15/2022 9:23 AM Narrative 03/15/2022 9:23 AM EDT EXAMINATION: CT [...] ho have questions please contact the health care asst that requested your imaging first. 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
--- OUTSIDE RECORDS SUMMARY | 2022-04-18 14:13 | XMS_ITS | Encounter Summary ---
:1995 Author Organization [facility] [place] [address] Care Team Providers Name Role Phone None Primary Care Provider Unavailable Encounter Details Date Type Department Care Team Description 02/26/2022 Interpretation Only [facility] John Tyson, [address] [place] [address] [place] [address] [phone] (Wo rk) Social History Tobacco Use Types Packs/Day Years Used Date Never Smoker Sex Assigned at Date Recorded Not on file documented as of this encounter Plan of Treatment Upcoming Encounters Date Type Specialty Care Team Description 04/25/2022 Laboratory Appointment Lab 04/25/2022 Office Visit General Surgery Siomara G[facility] MD [facility] GENERAL SURGERY [place], [place] [address] (Wo rk) 05/14/2022 Office Visit Endocrinology Karina Montalvo MD [facility] ENDOCRINOLOGY DE PT [place], [place] [address] (Wo rk) documented as of this encounter Procedures Procedure Name Priority Date/Time Associated Diagnosis Comme nts XR CHEST ONE VIEW STAT 02/26/2022 12:36 PM Res ults for this EDT procedure are i n the results section. documented in this encounter Results XR Chest One View (02/26/2022 12:36 PM EDT) [facility] Method Time Signature PT CLASS E DH RAD ADMITDTTM [id number] DH RAD PT [facility] INFO [id number]^CARLOS [facility] LS^KIRT^O EXAM DESC XCXR1^XR Chest 1 [facility] View Portable^RIS Anatomical Region Laterality Modality Chest [...] who have questions please contact the health group care worker that requested your imaging first. ? Procedure [...] ho have questions please contact the health group care worker that requested your imaging first. Kirt MORALES IMVeronica DX ORDERABLES documented in this encounter Visit Diagnoses Not on filedocumented in this encounter Care Teams Patent Engineer Relationship Specialty Start Date End Date None PCP - General 02/09/22 04/11/22 None documented as of this encounter
--- OUTSIDE RECORDS SUMMARY | 2022-04-18 14:13 | XMS_ITS | Encounter Summary ---
:1995 Author Organization [facility] [place] [address] Care Team Providers Name Role Phone Porfirio Johnson MD, Manuel Primary Care Provider Reason for Referral Consultation (Routine) - Closed Specialty Diagnoses / Procedures Referred By Contact Refer red To Contact General Surgery Diagnoses Endocrine disorder, unspecified Family history of multiple endocrine neoplasia (MEN) syndrome Hypercalcemia Ashley Juan APRN Sorensen, Meredith [address] [place] [place], [place] [address] [facility] GENERAL SURGERY [place], [place] [address] Phone: Fax: Referral ID Status Reason Start Date Expiration Date Visits V isits Requested Authorized [id number] Closed Consult, 11/09/2021 11/09/2022 1 1 Test & Treat Encounter Details Date Type Department Care Team Description 11/09/2021 Transcribe Orders eDH Incoming Drake, Endocrine disorder, unspecified; Referrals YASSINE Ramirez Family history of multiple endocrine rahel plasia (MEN) syndrome; [phone] [place] [address] Hypercalcemia [place], [place] [id number] Social History Tobacco Use Types Packs/Day Years Used Date Never Assessed Sex Assigned at Date Recorded Not on file documented as of this encounter Plan of Treatment Upcoming Encounters Date Type Specialty Care Team Description 04/25/2022 Laboratory Appointment Lab 04/25/2022 Office Visit General Surgery Siomara Gorman MD [facility] GENERAL SURGERY [place], [place] [address] (Wo rk) 05/14/2022 Office Visit Endocrinology Karina Montalvo MD [facility] ENDOCRINOLOG[facility] DE PT [place], [place] [address] (Wo rk) Scheduled Referrals Name [...] Hypercalcemia documented in this encounter Care Teams Electroencephalographic Technician Relationship Specialty Start Date End Date Manuel Monroy MD PCP - General 05/08/10 02/08/22 [place] [address] documented as of this encounter
--- OUTSIDE RECORDS SUMMARY | 2022-04-18 14:13 | XMS_ITS | Encounter Summary ---
:1995 Author Organization [facility] [place] [address] Care Team Providers Name Role Phone Porfirio Johnson MD, Manuel Primary Care Provider Reason for Referral Consultation (Routine) - Duplicate Referral Specialty Diagnoses / Procedures Referred By Contact Refer red To Contact General Surgery Diagnoses Hypercalcemia Parathyroid disease Ashley Juan APRN Sorensen, Meredith J, [address] [place] [address] [address] HERNA[address] [place], [place] [address] 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 METAL MODEL BUILDER Parathyroid disease [phone] [place] [address] [place] [address] Social History Tobacco Use Types Packs/Day Years Used Date Never Assessed Sex Assigned at Date Recorded Not on file documented as of this encounter Plan of Treatment Upcoming Encounters Date Type Specialty Care Team Description 04/25/2022 Laboratory Appointment Lab 04/25/2022 Office Visit General Surgery Siomara Gorman MD [facility] GENERAL SURGERY [place], [place] [address] (Wo rk) 05/14/2022 Office Visit Endocrinology Karina Montalvo MD [facility] ENDOCRINOLOGY [place], [place] [address] (Wo rk) Scheduled Referrals Name Type Priority Associated Diagnoses Order S chedule Referral to Outpatient Referral Routine Hypercalcemi a Ordered: General Surgery Parathyroid disease 12/05 documented as of this encounter Visit Diagnoses Diagnosis Hypercalcemia Parathyroid disease Unspecified disorder of parathyroid glan d documented in this encounter Care Teams Machining Engineer Relationship Specialty Start Date End Date Manuel Monroy MD PCP - General 05/08/10 02/08/22 [place] [address] documented as of this encounter
--- OUTSIDE RECORDS SUMMARY | 2022-04-18 14:13 | XMS_ITS | Encounter Summary ---
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 Procedures PRO EXPLORE PARATHYROID GLANDS PRG EMG, LARYNX PARATHYROIDECTOMY OR EXPLORATION OF PARATHYROID(S) (WRVU 15.6) FACIAL NERVE MONITORING, SETUP LARYNGEAL (WRVU 1.57) [facility] [place] [address] Referral ID Status Reason Start Date Expiration Date Visits Requ ested Visits Authorized [id number] 1 1 Encounter Details Date Type Department Care Team Description 03/26/2022 Anesthesia Event Outpatient Surgery Hung Black MD [facility] [place] [address] [place] Dylan Walter MD [facility] [place] [address] [facility] [place] [address] Anesthesia Record Procedure Summary Procedure Name Responsible Anesthesia Start Anesthesia Stop Anesthesiologist Time Time PARATHYROIDECTOMY OR Hung Black MD 03/26/22 1333 05/07 1627 EXPLORATION OF PARATHYROID(S) (WRVU 15.6) (N/A Neck) Events Date Time Event Comment 03/26/2022 1251 1332 AN Verify 1333 Start 1333 An Start Data 1333 An Induction 1335 An Intubation 1335 Quick Note Very poor dentit ion. Jagged upper and lower right molars. 1350 Anesthesia Ready 1407 Procedure Start 1414 An Data Art 1614 An Data Art 1627 Extubation/LMA Out 1627 an stop data 1627 Recovery or ICU Handoff Patient care was transferred to the destination unit staff after review of the patient's medica l history, current anesthetic/surgi raul status and plan, according to the Provider Handoff Checklist. 1627 Stop Name Total Midazolam 2 mg fentaNYL 100 mcg Propofol 250 mg PHENYLephrine 400 mcg Ondansetron 8 mg Dexamethasone 8 mg Succinylcholine 100 mg Propofol INF 1,411.2 mg ketorolac (Toradol) (30 mg/mL) injection 30 mg Lactated Ringers 1,000 mL Agents Name O2 Air N2O Sevoflurane (et) Blood No blood administrations on file. Lines, Drains, and Airways Type Details Placement Removal Incision 03/26/22; 1422; neck; 03/26/22 1422 by freedom Small Jr., RN PIV 03/26/22; 1130; metacarpal 03/26/22 1130 by Kapil , 03/26/22 1825 by Juliano, vein (top of hand), left; SHWETHA Childers RN [id number] catheter system; Anatomical Landmarks; 20 gauge; lh; intradermal injection, age-appropriate response; no longer indicated, catheter/device intact, removed per policy/procedure; 03/26/22; 1825 ETT Mask Ventilation: Not 03/26/22 1335 by Ajay, 1 1627 by Attempted (0); ETT Type: Vincent B, COMPLAINTS COORDINATOR Ajay, Carlaent B, COMPLAINTS COORDINATOR Cuffed, Oral, NIM; ETT Size: 6 mm; Mac Blade: 4; Notes: Asleep, Pre-O2, RSI, Cricoid Pressure, Stylette; Attempts: 1; Laryngoscopy Grade: 1; ETT Placement Verified By: Auscultation, Capnometry, Visual; Secured at Teeth: 24 cm; Inserted by: PATRICIO documented in this encounter Social History Tobacco Use Types Packs/Day Years Used Date Never Smoker Smokeless Tobacco: Never Used Sex Assigned at Date Recorded Not on file documented as of this encounter OR Notes Anesthesia Postprocedure Evaluation - Hung Black MD - 03/26/2022 4:35 PM EDT Department of Anesthesiology Post-procedure Note Patient: Pedro Pablo Cortes Procedure Summary Date: 03/26/22 Room / Location: [address] [facility] Anesthesia Start: 1333 Anesthesia Stop: 1627 Procedures: PARATHYROIDECTOMY OR EXPLORATION OF PARATHYROID(S) (WRVU 15.6) (N/A Neck) FACIAL NERVE MONITORING, SETUP LARYNGEAL (WRVU 1.57) (N/A Neck) Diagnosis: (MEN 1 SYNDROME) Surgeons: Siomara Gorman MD Responsible Provider: Hung Black MD Anesthesia Type: general ASA Status: 3 All Anesthesia Providers: Anesthesiologist: Shaneka Palacios MD; Hung Black MD COMPLAINTS COORDINATOR: Rome Moss CRNA Vitals Value Taken Time BP 120/76 03/26/22 1630 Temp Pulse 88 03/26/22 1634 Resp SpO2 99 % 03/26/22 1634 Pain Level Vitals shown include unvalidated device data. Patient Location: PACU/[facility] Level of Consciousness: Conscious but Sleepy Pain Management: Satisfactory Analgesia PONV: None Cardiovascular Status: Hemodynamically Stable Respiratory Status: Stable Respiratory Status Postoperative Fluid Status: Intravascular EUvolemia Possible Anesthetic Complications: NONE apparent at time of evaluation Final Primary Anesthesia Type: General (The anesthetic type performed was the same as planned.) Comments: Anesthesia Preprocedure Evaluation - Shaneka Palacios MD - 03/25/2022 2:55 PM EDT Pre-Anesthesia Evaluation for: Pedro Pablo Cortes a 26 y.o. male. Procedure(s): PARATHYROIDECTOMY OR EXPLORATION OF PARATHYROID(S) (WRVU 15.6) FACIAL NERVE MONITORING, SETUP LARYNGEAL (WRVU 1.57) There are no problems to display for this patient. Past Medical History: Diagnosis Date ??? Anxiety ??? History of drug abuse ??? Hypercholesteremia ??? PTSD (post-traumatic stress disorder) No past surgical history on file. Social History Tobacco Use ??? Smoking status: Never Smoker ??? Smokeless tobacco: Not on file Substance Use Topics ??? Alcohol use: Not on file Social History Substance and Sexual Activity Drug Use Not on file Allergies Allergen Reactions ??? Codeine Tightening of chest, wheezing Medications: MAR and/or home medications have been reviewed. Physical Exam: Preprocedure Vitals Current as of 03/25/22 1455 No BP, pulse, respiration, SpO2, or temperature recorded. 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 He was feeling poorly,diagnosed with hypercalcemia and referred to Dr. Gorman. He also report generalized pain, trouble breathing and swallowing, heartburn on famotidine, and constipation. MRI head negative for pituitary adenoma & CT abdomen negative for mass. Flexible laryngoscopy was normal in October. Also with chronic pain on methadone (110mg daily, took this AM), gabapentin. Allergies: -- Codeine -- Tightening of chest, wheezing Anesthetic hx: No reported prior complications with anesthesia Airway hx: no records Lab Results Component Value Date NA 136 02/21/2022 K 4.1 02/21/2022 CREATININE 0.96 02/21/2022 No results for input(s): ABORH in the last 7068 hours. Anesthetic Plan: GA w Nim Tube, RSI given GERD sxs, PONV ppx Region - Other Informed Consent: Anesthetic plan and risks discussed with patient. Plan discussed with COMPLAINTS COORDINATOR. Anesthesia Screening documented in this encounter Plan of Treatment Upcoming Encounters Date Type Specialty Care Team Description 04/25/2022 Laboratory Appointment Lab 04/25/2022 Office Visit General Surgery Siomara Gorman MD [facility] GENERAL SURGERY [place] [address] (Wo rk) 05/14/2022 Office Visit Endocrinology Karina Montalvo MD [facility] ENDOCRINOLOGY [place], [place] [address] (Wo rk) documented as of this encounter Visit Diagnoses Not on filedocumented in this encounter Administered Medications Inactive Administered Medications - up to 3 most recent administrations Medication Order MAR Action Action Date Dose Rate Site dexAMETHasone (Decadron) injection Given 03/26/2022 1:33 PM EDT 8 mg Intravenous, PRN, Starting on Fri03/26/22 at 1333, Until Fri03/26/22 at 1627, Anesthesia Intra-op, Routine fentaNYL (pf) (50 mcg/mL) multi-dose Given 03/26/2022 2:46 PM ED T 25 mcg injection Intravenous, PRN, Starting on Fri03/26/22 at 1346, Until Fri03/26/22 at 1627, Anesthesia Intra-op, Routine Given 03/26/2022 2:39 PM EDT 25 mcg Given 03/26/2022 1:46 PM EDT 50 mcg ketorolac (Toradol) (30 mg/mL) injection Given 03/26/2022 4:02 PM EDT 30 mg Intravenous, PRN, Starting on Fri03/26/22 at 1602, Until Fri03/26/22 at 1627, Anesthesia Intra-op, Routine lactated ringers infusion New Bag 03/26/2022 1:33 PM EDT Intravenous, CONTINUOUS PRN, Starting on Fri03/26/22 at 1333, Until Fri03/26/22 at 1627, Anesthesia Intra-op midazolam (pf) (Versed) (1 mg/mL) multi-dose Given 03/26/2022 1: 31 PM EDT 2 mg injection Intravenous, PRN, Starting on Fri03/26/22 at 1331, Until Fri03/26/22 at 1627, Anesthesia Intra-op, Routine ondansetron (pf) (Zofran) (2 mg/mL) inje ction Given 03/26/2022 4:02 PM EDT 4 mg Intravenous, PRN, Starting on Fri03/26/22 at 1333, Until Fri03/26/22 at 1627, Anesthesia Intra-op, Routine Given 03/26/2022 1:33 PM EDT 4 mg PHENYLephrine in NS (PF) (ANT-SYNEPHRINE) Given 03/26/2022 2:24 PM EDT 160 mcg 0.8 mg/10 mL (80 mcg/mL) multi-dose injection Syrg Intravenous, PRN, Starting on Fri03/26/22 at 1357, Until Fri03/26/22 at 1627, Anesthesia Intra-op, Routine Given 03/26/2022 2:16 PM EDT 80 mcg Given 03/26/2022 2:03 PM EDT 80 mcg propofoL (Diprivan) (10 mg/mL) New Bag 03/26/2022 1:33 PM 100 mcg/kg/min 57.6 mL/hr infusion EDT Intravenous, CONTINUOUS PRN, Starting on Fri03/26/22 at 1333, Until Fri03/26/22 at 1627, Anesthesia Intra-op, Routine propofoL (Diprivan) 10 mg/mL bolus injection Given 1:45 PM EDT 50 mg (Anesthesia) Intravenous, PRN, Starting on Fri03/26/22 at 1333, Until Fri03/26/22 at 1627, Anesthesia Intra-op Given 03/26/2022 1:33 PM EDT 200 mg succinylcholine (Anectine;Quelicin) (20 Given 03/26/2022 1:33 PM EDT 100 mg mg/mL) injection Intravenous, PRN, Starting on Fri03/26/22 at 1333, Until Fri03/26/22 at 1627, Anesthesia Intra-op, Routine documented in this encounter Care Teams Acquisitions Logistics Analyst Relationship Specialty Start Date End Date None PCP - General 02/09/22 04/11/22 None documented as of this encounter
--- OUTSIDE RECORDS SUMMARY | 2022-04-18 14:13 | XMS_ITS | Encounter Summary ---
:1995 Author Organization [facility] [place] [address] Care Team Providers Name Role Phone None Primary Care Provider Unavailable Reason for Referral Diagnostic Test (Routine) - Closed Specialty Diagnoses / Procedures Referred By Contact Refer red To Contact Diagnoses Lower extremity pain, right Santiago Carroll DO [facility] Procedures Vascular Imaging Venous Lower Extremity Unilateral [address] [place], [place] [address] [address] [place] [address] Referral ID Status Reason Start Date Expiration Date Visits V isits Requested Authorized [id number] Closed Specialty 02/09/2022 08/12/2023 1 1 Service Requested Reason for Visit Diagnostic Test (Routine) - Closed Specialty Diagnoses / Procedures Referred By Contact Refer red To Contact Diagnoses Lower extremity pain, right Santiago Carroll DO [facility] Procedures Vascular Imaging Venous Lower Extremity Unilateral [address] [place], [place] [address] 1 [place] [address] Referral ID Status Reason Start Date Expiration Date Visits V isits Requested Authorized [id number] Closed Specialty 02/09/2022 08/12/2023 1 1 Service Requested Encounter Details Date Type Department Care Team Description 02/09/2022 Hospital Encounter Ultrasound at Santiago Carroll Lower extremity Tom DO pain, right [address] [place] [address] [phone] Social History Tobacco Use Types Packs/Day Years Used Date Never Assessed Sex Assigned at Date Recorded Not on file documented as of this encounter Medications at Time of Discharge Medication Sig Dispensed Refills Start Date End Date busPIRone (Buspar) 10 mg Take 2 tablets by 0 /2 11/2021 Tablet mouth 3 times daily. gabapentin (NEURONTIN) Take 600 mg by mouth 0 600 mg Tablet 3 times daily. Senna 8.6 mg Tablet Take 2 tablets by 0 2 mouth nightly. docusate sodium (Colace) Take 100 mg by mouth 0 0 02/07/2022 04/15/2022 100 mg Capsule 2 times daily. traZODone (Desyrel) 100 Take 100 mg by mouth 0 04/15/2022 mg Tablet nightly. cloNIDine (Catapres) 0.1 0.1 mg. 0 02/08/2022 04/07/2022 mg Tablet doxepin (Silenor) 3 mg 0 10/25/2021 Tablet escitalopram (Lexapro) 20 Take 20 mg by mouth 0 0 10/01/2021 04/07/2022 mg Tablet daily. FLUoxetine (PROzac) 20 mg Take 3 capsules by 0 04/07/2022 Capsule mouth daily. omeprazole (PriLOSEC) 20 Take 20 mg by mouth 0 04/07/2022 mg Capsule, Delayed daily. Release(E.C.) documented as of this encounter Plan of Treatment Upcoming Encounters Date Type Specialty Care Team Description 04/25/2022 Laboratory Appointment Lab 04/25/2022 Office Visit General Surgery Siomara Gorman MD [facility] GENERAL SURGERY [place], [place] [address] (Wo rk) 05/14/2022 Office Visit Endocrinology Karina Montalvo MD [facility] ENDOCRINOLOGY [place], [place] [address] (Wo rk) documented as of [...] who have questions please contact the health clinical care coordinator that requested your imaging first. ? Electronically signed by: MIKE WHITEHEAD MD, [facility] ([phone]), at 02/09/2022 3:15 PM Narrative 02/09/2022 3:15 [...] ho have questions please contact the health clinical care coordinator that requested your imaging first. Electronically signed by: MIKE WHITEHEAD MD, [facility] ([phone]), at 02/09/2022 3:15 PM Santiago Carroll DO [...] limb documented in this encounter Care Teams University Manager Relationship Specialty Start Date End Date None PCP - General 02/09/22 04/11/22 None documented as of this encounter
--- OUTSIDE RECORDS SUMMARY | 2022-04-18 14:13 | XMS_ITS | Encounter Summary ---
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 Joyce Nelson MD [facility] Procedures PRO EXPLORE PARATHYROID GLANDS PRG EMG, LARYNX PARATHYROIDECTOMY OR EXPLORATION OF PARATHYROID(S) (WRVU 15.6) FACIAL NERVE MONITORING, SETUP LARYNGEAL (WRVU 1.57) [facility] [place] [address] Referral ID Status Reason Start Date Expiration Date Visits Requ ested Visits Authorized [id number] 1 1 Encounter Details Date Type Department Care Team Description 03/26/2022 Surgery Outpatient Surgery Joyce Nelson PAR ATHYROIDECTOMY OR Center Evonne Chin MD EXPLORATION OF [facility] PARATHYROID(S) (WRVU 15.6) [facility] [address] [place] [id number] [phone] Social History Tobacco Use Types Packs/Day Years Used Date Never Smoker Smokeless Tobacco: Never Used Sex Assigned at Date Recorded Not on file documented as of this encounter Last Filed Vital Signs Vital Sign Reading Time Taken Comments Blood Pressure 116/70 03/26/2022 11:04 AM EDT Pulse 100 03/26/2022 11:04 AM EDT Temperature 37.2 ??C (99 ??F) 03/26/2022 11:04 AM EDT Respiratory Rate 20 03/26/2022 11:04 AM EDT Oxygen Saturation 98% 03/26/2022 11:04 AM EDT Inhaled Oxygen Concentration - - Weight [...] closest emergency room or call the hospital lease operator at [phone] and ask for physician tax professional covering for your physician. Questions or problems after 5pm or on a weekend: Call the [facility] lease operator at and ask for the physician tax professional covering for your doctor. At 11:30 am [...] Take NSAIDS or Tylenol every 6 hours [id number] for the first 3-5 days following surgery [...] will call you to discuss the report hours of its release. Follow-up Appointment: Will be scheduled with Dr. Nelson and/or Joan Covington APRN, in 6 weeks If you do not already have a follow up appointment, the date and time as well as any required labs will be mailed to you Please call [phone] to confirm the date and time of your appointment if you do not hear from usin the next 2 weeks Call Doctor for: Call if you have trouble talking or breathing (call [phone] if this is severe) Call if you [...] after surgery, an over the counter supplement [id number] IU is the usual recommended dosage, however, [...] with your PCP. Phone number for questions: [phone] before 5 PM on weekdays [phone] after 5 PM and on weekends/holidays. Ask for the general surgery resident tax professional. documented in this encounter Medications at Time [...] nightly. cloNIDine (Catapres) 0.1 mg. 0 02/08/2022 10/08/2021 0.1 mg Tablet doxepin (Silenor) 3 mg [...] as of this encounter Progress Notes Adrianna Henao, RN - 03/26/2022 6:32 PM EDTSummary: OSC discharge Patient settled into post, no airway noted, on arrival noted nailbeds had a dusky blue tinge, Pox at88, RUBBER COMPOUNDER SUPERVISOR held jaw thrust with good effect. Continued pauses in respirations, Pox low 90s, Nasal and oral airway and jaw thrust until patient settled down and maintained airway on own, sats upper 90's. Continued monitoring VS as indicated, report from RUBBER COMPOUNDER SUPERVISOR / Anesthesia. Report from Resident, verbal order for PTH to be drawn in post, confirmed patient does not need to wait for results. PTH drawn and sent to lab. Patient resting in bed, airways in place, no distress noted at this time, call ennis and nurse at bedside. Noted pauses at time in respirations, question un-dx'd JOSE JUAN, anesthesia aware. 1730, reynaldo tietal moving on own, confused and lethargic, followed [...] Note Patient Name: Pedro Pablo Cortes : [id number] MR#: [id number] Case Date: 03/26/2022 Surgeon: Surgeon(s) and Role: [...] requested changes: cancel eD-H Order Id number [id number] SPECIMEN TO PATHOLOGY Frozen specimen MEN 1 [...] Nelson MD - 03/26/2022 2:08 PM EDT [facility] Operative Note Patient Name: Pedro Pablo Cortes : [id number] MR#: [id number] Case Date: 03/26/2022 Surgeon: Surgeon(s) and Role: [...] requested changes: cancel eD-H Order Id number [id number] SPECIMEN TO PATHOLOGY Frozen specimen MEN 1 [...] anesthesia was completed by anesthesiology with the [employer] recurrent laryngeal nerve monitoring system. A crease [...] Office Visit General Surgery Joyce Nelson MD [facility] GENERAL SURGERY [place], [place] [address] (Wo rk) 05/14/2022 Office Visit Endocrinology Karina Montalvo MD [facility] ENDOCRINOLOGY [place], [place] [address] (Wo rk) Scheduled Orders Name Type [...] Signature PTH 12 (L) 15 - 65 [facility] pg/[facility] LABORATORY Specimen Anatomical Collection Method Collection Time Receive d Time (Source) Location / / Volume Laterality Blood 03/26/2022 5:05 PM 2 5:38 EDT PM EDT Resulting Agency Comment Spec In Lab Joyce Nelson MD CHEMISTRY ORDERABLES Performing Organization Address City/[facility]/[place] [address] Specimen to Pathology (03/26/2022 4:02 PM EDT) Specimen Anatomical Collection Method Collection Time Receive d Time (Source) Location / / Volume Laterality AP Specimen 03/26/2022 4:02 PM 2 4:02 EDT PM EDT Narrative [facility] - 03/26/2022 4:02 PM EDT Specimen requisition ordered. ??Separate Pathology report to follow Joyce Nelson MD PATHOLOGY/CYTOLOGY ORDERABLE S Performing Organization Address City/[facility]/[place] [address] Specimen to Pathology (03/26/2022 3:53 PM EDT) Specimen Anatomical Collection Method Collection Time Receive d Time (Source) Location / / Volume Laterality AP Specimen 03/26/2022 3:53 PM 2 3:53 EDT PM EDT Narrative [facility] - 03/26/2022 3:53 PM EDT Specimen requisition ordered. ??Separate Pathology report to follow Joyce Nelson MD PATHOLOGY/CYTOLOGY ORDERABLE S Performing Organization Address City/[facility]/[place] [address] Specimen to Pathology (03/26/2022 3:41 PM EDT) Specimen Anatomical Collection Method Collection Time Receive d Time (Source) Location / / Volume Laterality AP Specimen 03/26/2022 3:41 PM 2 3:41 EDT PM EDT Narrative [facility] - 03/26/2022 3:41 PM EDT Specimen requisition ordered. ??Separate Pathology report to follow Joyce Nelson MD PATHOLOGY/CYTOLOGY ORDERABLE S Performing Organization Address City/State/[place] [address] Specimen to Pathology (03/26/2022 3:22 PM EDT) Specimen Anatomical Collection Method Collection Time Receive d Time (Source) Location / / Volume Laterality AP Specimen 03/26/2022 3:22 PM 2 3:22 EDT PM EDT Narrative [facility] OR - 03/26/2022 3:22 PM EDT Specimen requisition ordered. ??Separate Pathology report to follow Joyce Nelson MD PATHOLOGY/CYTOLOGY ORDERABLE S Performing Organization Address City/[facility]/[place] [address] Specimen to Pathology (03/26/2022 3:19 PM EDT) Specimen Anatomical Collection Method Collection Time Receive d Time (Source) Location / / Volume Laterality AP Specimen 03/26/2022 3:19 PM 2 3:19 EDT PM EDT Narrative [facility] - 03/26/2022 3:19 PM EDT Specimen requisition ordered. ??Separate Pathology report to follow Joyce Nelson MD PATHOLOGY/CYTOLOGY ORDERABLE S Performing Organization Address City/[facility]/[place] [address] Surgical Pathology Report (03/26/2022 3:07 PM EDT) Component Value Ref Test Analysis Performed At [facility] Method Time [facility] [id number] ? Location: [facility] Report The signing pathologist has (i) examined [...] Chin Verified: ??04/03/2022 11:47 ??Pathologist Performed at: ??-[facility] Dept. of Pathology, [place], [place] SPECIMEN(S) SUBMITTED A - right lower [...] MD Verified: ??03/26/2022 15:47 ??Pathologist Performed at: ??-[facility] Dept. of Pathology, [place], [place] This intraoperative consultation should be interpreted [...] Organization Address City/State/[place] [address] Specimen to Pathology (03/26/2022 3:07 PM EDT) Specimen Anatomical Collection Method Collection Time Receive d Time (Source) Location / / Volume Laterality AP Specimen 03/26/2022 3:07 PM 3:07 EDT PM EDT Narrative [facility] LABORAT [facility] - 03/26/2022 3:07 PM EDT Specimen requisition ordered. ??Separate Pathology report to follow Joyce Nelson MD PATHOLOGY/CYTOLOGY ORDERABLE S Performing Organization Address City/[facility]/[place] [address] (ABNORMAL) Intraoperative PTH ([facility]/CGP) (03/26/2022 2:27 PM EDT) [facility] g[facility] Method Time Signature Intraoper PTH 1,887 (H) 15 - 65 [facility] pg/mL [facility] LABORATORY Comment: Called by: dave, Read back by: Amador fraser, Date/Time:03/26/22 15:06. IOP-PTH baseline A 50 % decrease in venous iPTH levels at 10 min post adenoma excision is expected if all the hypersecreting parat hyroid tissue has been removed (Jose GL et al. Surgery 1993:114; [id number]) Specimen Anatomical Collection Method Collection Time Receive d Time (Source) Location / / Volume Laterality Blood 03/26/2022 2:27 PM 2:39 EDT PM EDT Resulting Agency Comment Spec In Lab Joyce Nelson MD CHEMISTRY ORDERABLES Performing Organization Address City/[facility]/[place] [address] documented in this encounter Visit Diagnoses Not [...] are indicated. , PACU Recovery, Routine BUpivacaine-EPINEPHrine Given 03/26/2022 2:29 PM 10 mLs 19- Surgical Site (Marcaine-epiNEPHrine) 0.25 EDT %-1:200,000 injection ONCE PRN, Starting on Fri03/26/22 at 1429, Until Fri03/26/22 at 2105, Intra-Operative (Intra-Procedure), Routine lactated ringers infusion New Bag 03/26/2022 [...] PLETED) 1301 (Patch Applied - Provider: Vaishnavi Fernandez, RN) 1 patch, Transdermal, ONCE, 1 dose, On T 03/26/22 at 1315, Day of Surgery (Day of [...] (CANCELED) 1131 (New Bag - Provider: Pamela Armas RN) 1,000 mL, at 100 mL/hr, Intravenous, CON [...] Routine documented in this encounter Care Teams Returned Case Inspector Relationship Specialty Start Date End Date None PCP - General 02/09/22 04/11/22 None documented as of this encounter
--- OUTSIDE RECORDS SUMMARY | 2022-04-18 14:13 | XMS_ITS | Encounter Summary ---
:1995 Author Organization [facility] [address] Care Team Providers Name Role Phone Porfirio Johnson MD, Manuel Primary Care Provider Encounter Details Date Type Department Care Team Description 12/10/2021 External [place] [phone] Social History Tobacco Use Types Packs/Day Years Used Date Never Assessed Sex Assigned at Date Recorded Not on file documented as of this encounter Plan of Treatment Upcoming Encounters Date Type Specialty Care Team Description 04/25/2022 Laboratory Appointment Lab 04/25/2022 Office Visit General Surgery Siomara Gorman MD [facility] GENERAL SURGERY [place], [place] [address] (Wo rk) 05/14/2022 Office Visit Endocrinology Karina Montalvo MD [facility] ENDOCRINOLOGY DE PT [place], [place] [address] (Wo rk) documented as of this encounter Procedures Procedure Name Priority Date/Time Associated Diagnosis Comme nts LAB SCAN Routine 10/22/2021 Results for thi s procedure are in the resu lts section. documented in this encounter Results Scan Doc: Lab (10/22/2021) Narrative This result has an attachment that is no t available. Historical Provider MD GARZA MGR SCAN EXT ORDR/RSLT documented in this encounter Visit Diagnoses Not on filedocumented in this encounter Care Teams Manager Machine Relationship Specialty Start Date End Date Manuel Monroy MD PCP - General 05/08/10 02/08/22 [place] [id number] documented as of this encounter
--- OUTSIDE RECORDS SUMMARY | 2022-04-18 14:13 | XMS_ITS | Encounter Summary ---
:1995 Author Organization [facility] [place] [address] Care Team Providers Name Role Phone None Primary Care Provider Unavailable Reason for Referral Diagnostic Test (Routine) - Closed Specialty Diagnoses / Procedures Referred By Contact Refer red To Contact Radiology Diagnoses MEN 1 (multiple endocrine neoplasia) Siomara Nelson MD [facility] Rad Mri Procedures MRI Pituitary wwo Contrast MRI Brain wwo Contrast (Generic) [facility] [place] [address] [place] [address] Referral ID Status Reason Start Date Expiration Date Visits V isits Requested Authorized [id number] Closed Specialty 02/21/2022 08/22/2023 1 1 Service Requested Reason for Visit Reason Comments Establish Care Encounter Details Date Type Department Care Team Description 02/21/2022 Office Visit General Surgery at Elida Nelson MD [facility] [place] [place] [address] MEN 1 (multiple [facility] Joan Covington APRN [facility] [place] [place] [address] endocrine neoplasia) [place] [address] Social History Tobacco Use Types [...] more history about his father who of AKY-9-beyghlh tumors. They report that he had lung [...] (tested due to his father's diagnosis) at [facility] in [place]. He has had no subsequent follow-up. Recently, [...] is not working. We was in the [employer] for 8 years. He does not smoke. [...] Lab 04/25/2022 Office Visit General Surgery Siomara Nelson MD [facility] GENERAL SURGERY [place], [place] [address] (Wo rk) 05/14/2022 Office Visit Endocrinology Karina Montalvo MD [facility] ENDOCRINOLOGY DE PT [place], [place] [address] (Wo rk) documented as of [...] who have questions please contact the health childcare center administrator that requested your imaging first. ? Electronically signed by: Jamaal English MD, [facility] ([phone]), at 03/13/2022 9:33 AM Narrative 03/13/2022 9:33 [...] ho have questions please contact the health childcare center administrator that requested your imaging first. Electronically signed by: Jamaal English MD, [facility] ([phone]), at 03/13/2022 9:33 AM Siomara Nelson MD IMG MRI ORDERABLES XR Pre MRI [...] who have questions please contact the health childcare center administrator that requested your imaging first. ? Electronically signed by: Kierra Barillas MD, [facility] ([phone]), at 03/12/2022 4:17 PM Narrative 03/12/2022 4:17 [...] ho have questions please contact the health childcare center administrator that requested your imaging first. Siomara Nelson MD IMG DX ORDERABLES (ABNORMAL) Gastrin (02/21/2022 3:36 PM EDT) athologist Signature Gastrin 146 (H) pg/mL [facility] LABORATORY Comment: REFERENCE VALUE------ <100 Reference ranges valid for >= 8 hour fast. Test Performed by: [facility] [address] [place] [id number] Field Training Manager: Bo Valladares M.D. Ph. D.; CLIA# [id number] Specimen Anatomical Collection Method Collection Time Receive d Time (Source) Location / / Volume Laterality Blood Venous Draw / 02/21/2022 3:36 PM 02/23/20 22 4:21 Unknown EDT PM EDT Resulting Agency Comment Spec In Lab Siomara Nelson MD CHEMISTRY ORDERABLES Performing Organization Address City/State/[place] [address] Chromogranin A (02/21/2022 3:36 PM EDT) athologist Signature Chromogranin A 81 <93 ng/mL [facility] Comment: ADDITIONAL INFORMATIO N This test was developed and its performa nce characteristics determined by [facility] in a manner co nsistent with [...] homogeneous time -resolved immunofluorescent assay manufactured by [employer] and performed on the [employer] Comp act Plus. Values obtained with different assay met hods or kits may be different and cannot be used interchange ably. Test results cannot be interpreted as ab solute evidence for the presence or absence of malignant dis ease. Test Performed by: [facility] [address] [place] [address] Field Training Manager: Bo Valladares M.D. Ph. D.; CLIA# [id number] Specimen Anatomical Collection Method Collection Time Receive d Time (Source) Location / / Volume Laterality Blood 02/21/2022 3:36 PM 2 4:16 EDT PM EDT Resulting Agency Comment Spec In Lab Siomara Nelson MD CHEMISTRY ORDERABLES Performing Organization Address City/State/ZIP Code Phon e Number [facility] [address] (ABNORMAL) Prolactin (02/21/2022 3:36 PM EDT) P athologist Signature Prolactin 17.8 (H) 4.0 - 15.2 [facility] ng[facility] LABORATORY Specimen Anatomical Collection Method Collection Time Receive d Time (Source) Location / / Volume Laterality Blood 02/21/2022 3:36 PM 2 3:48 EDT PM EDT Resulting Agency Comment Spec In Lab Siomara Nelson MD CHEMISTRY ORDERABLES Performing Organization Address City/State/ZIP [place] [address] (ABNORMAL) Basic Metabolic Panel (non-fasting) (02/21/2022 3:36 PM EDT) P athologist Signature Glucose Lvl 103 65 - 199 [facility] mg/dL [facility] LABORATORY Comment: Diabetes: >=200 mg/dL plus symp toms BUN 11 10 - 20 mg/dL [facility] LABORATORY Creatinine 0.96 0.80 - 1.50 mg/dL [facility] LABOR[facility] Sodium 136 135 - 145 mmol/L [facility] LABOR[facility] Potassium 4.1 3.5 - 5.0 mmol/L [facility] Comment: Please note: ??Patients with WBC >100,00 0 may have falsely elevated Potassium levels. ??For accurate Potassium quantif ication in these patients send serum separator tube (gold top) for subsequent determinations. ??Contact the Clinical Chemistry Laboratory if there are any qu estions. Chloride 101 98 - 107 mmol/L [facility] CO2 29 22 - 31 mmol/L [facility] Anion Gap 6 5 - 15 mmol/L [facility]ORY Calcium 11.3 (H) 8.5 - 10.5 mg/dL [facility] LABOR[facility]ORY Estimated GFR 110 >=60 mL/min/1.73 m?? [facility] Comment: This patient's estimated GFR [...] Organization Address City/State/ZIP Code Phon e Number [address] (ABNORMAL) PTH (02/21/2022 3:36 PM EDT) P athologist Signature PTH 152 (H) 15 - 65 [facility]OR[facility]ORY Specimen Anatomical Collection Method Collection Time Receive d Time (Source) Location / / Volume Laterality Blood 02/21/2022 3:36 PM 2 3:48 EDT PM EDT Resulting Agency Comment Spec In Lab Siomara Nelson MD CHEMISTRY ORDERABLES Performing Organization Address City/[facility]/[place] [address] documented in this encounter Visit Diagnoses Diagnosis MEN 1 (multiple endocrine neoplasia) Multiple endocrine neoplasia [MEN] type I MEN 1 (multiple endocrine neoplasia) Multiple endocrine neoplasia [MEN] type I MEN 1 (multiple endocrine neoplasia) Multiple endocrine neoplasia [MEN] type I documented in this encounter Care Teams Payroll Tax Analyst Relationship Specialty Start Date End Date None PCP - General 02/09/22 04/11/22 None documented as of this encounter
--- OUTSIDE RECORDS SUMMARY | 2022-04-18 14:13 | XMS_ITS | Encounter Summary ---
:1995 Author Organization [facility] [place] [address] Care Team Providers Name Role Phone None Primary Care Provider Unavailable Reason for Referral Consultation (ERNESTINE) - Authorized Specialty Diagnoses / Procedures Referred By Contact Refer red To Contact Gastroenterology Diagnoses MEN 1 syndrome Patient with MEN-1, elevated gastrin level, negative CT. 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 Martinez and this is an EGD and EUS. Within 1 month please. Gil Otoole MD [facility] ([facility] [place] [address] [place] [address] Referral ID Status Reason Start Date Expiration Visits Visits Date Requested Authorized [id number] Authorized Consult, 03/18/2022 03/18/2023 1 1 Test & Treat Consultation (Routine) - Closed Specialty Diagnoses / Procedures Referred By Contact Refer red To Contact Endocrinology Diagnoses MEN 1 syndrome Siomara Gorman, [facility] Endocrinology [address] [place] [address] [place] [address] Referral ID Status Reason Start Date Expiration Date Visits V isits Requested Authorized [id number] Closed Consult, 03/18/2022 03/18/2023 1 1 Test & Treat Encounter Details Date Type Department Care Team Description 03/18/2022 Telephone General Surgery at [facility] Siomara Gorman MD [facility] [place] [address] GENERAL SURGERY [phone] [place], [place] [address] (Wo rk) Social History Tobacco Use Types Packs/Day Years Used Date Never Smoker Sex Assigned at Date Recorded Not on file documented as of this encounter Miscellaneous Notes Telephone Encounter - Siomara Gorman MD - 03/18/2022 4:53 PM EDT Called patient to let him know his results of his MRI and CT abdomen. The MRI was negative for pituitary adenoma. I explained that this does not then explain why his prolactin was a little bit elevated. It is possible that there is some pituitary pathology developing on a microscopic level, but we cannot see it grossly yet, so there is no indication for surgery at this time. His CT abdomen was negative for an obvious pancreatic or duodenal tumor, there was no lymphadenopathy. However, his gastrin level that I checked last week was elevated, and he continues to have severe stomach problems, for which he tells me he went to the hospital last week. He describes this as gas pains in his chest, and severe reflux. 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 I willplace a referral for this. I also am placing a referral to endocrinology for them to help manage andsurveilled his MEN-1. In the meantime, we did not discover any reason that he cannot have the parathy roidectomy, so we again briefly discussed subtotal parathyroidectomy, and I will have my hard candy batch mixer start looking for a time for him to have this done. documented in this encounter Plan of Treatment Upcoming Encounters Date Type Specialty Care Team Description 04/25/2022 Laboratory Appointment Lab 04/25/2022 Office Visit General Surgery Siomara Gorman MD [facility] GENERAL SURGERY [place] [phone] (Wo rk) 05/14/2022 Office Visit Endocrinology Karina Montalvo MD [facility] ENDOCRINOLOGY [place] [phone] (Wo rk) Scheduled Referrals Name Type Priority Associated Order Schedule Diagnoses Referral to Outpatient Routine MEN 1 syndrome Ordered: Endocrinology Referral 03/18/2022 Referral to Outpatient Routine MEN 1 syndrome Ordered: Gastroenterology Referral 03/18/2022 documented as of this encounter Visit Diagnoses Diagnosis MEN 1 syndrome Multiple endocrine neoplasia [MEN] type I documented in this encounter Care Teams Brickmason Supervisor Relationship Specialty Start Date End Date None PCP - General 02/09/22 04/11/22 None documented as of this encounter
[2022-04-18 14:15] VITALS: BP 129/72; PULSE 118; TEMP 37.3; O2SAT 95
--- OUTSIDE RECORDS SUMMARY | 2022-04-18 14:15 | XMS_ITS | Encounter Summary ---
:1995 Demographics Home Phone Preferred Language Unknown Marital Status Unknown Adventist Affiliation Unknown Race Unknown Ethnic Group Unknown Author Organization [facility] Address [address] [place] [address] Care Team Providers Name Role Phone Unavailable Primary Care Provider Unavailable Encounter Details Date Type Department Care Team Description 10/04/2021 Lab Requisition [facility] Outr Resulting Lab, Pathology & Laboratory Provider [facility] [address] [place] [address] Social History Tobacco Use Types Packs/Day Years Used Date Never Assessed Sex Assigned at Date Recorded Not on file documented as of this encounter Plan of Treatment Not on filedocumented as of this encounter Procedures Procedure Name Priority Date/Time Associated Diagnosis Comme nts COVID-19 TEST [facility] Today 10/04/2021 19:02 LAB PCR EDT COVID-19 TESTING Routine 10/04/2021 19:02 Results for this EDT procedure are i n the results section. documented in this encounter Results COVID-19 TEST [facility] LAB PCR (10/04/2021 19:02 EDT) Specimen Swab Performing Organization Address City/State/ZIP Code Phon e Number [facility] [address] [place] [address] SERVICES COVID-19 TESTING (10/04/2021 19:02 EDT) COVID-19 rt-PCR Negative Negative [facility] Result Comment: [facility] This test has not been FDA [...] was performed using the gabriele SARS-CoV-2 assay ([employer] on the [address]le [address] System Performing Lab [place] [address] [facility] Lab [facility] SERVICES Specimen Swab Performing Organization Address City/State/ZIP Code Phon e Number [facility] [address] [place] [phone] SERVICES documented in this encounter Visit Diagnoses Not on filedocumented in this encounter
--- OUTSIDE RECORDS SUMMARY | 2022-04-18 14:15 | XMS_ITS | Clinical Summary ---
:1995 Demographics Home Phone Preferred Language Unknown Marital Status Unknown Adventist Affiliation Unknown Race Unknown Ethnic Group Unknown Author Organization [facility] Address [address] [place] [address] Care Team Providers Name Role Phone Unavailable Primary Care Provider Unavailable Social History Tobacco Use Types Packs/Day Years Used Date Never Assessed Sex Assigned at Date Recorded Not on file Plan of Treatment Not on file
--- OUTSIDE RECORDS SUMMARY | 2022-04-18 14:15 | XMS_ITS | Encounter Summary ---
:1995 Demographics Home Phone Preferred Language Unknown Marital Status Unknown Yarsani Affiliation Unknown Race Unknown Ethnic Group Unknown Author Organization [facility] Address [address] [place] [address] Care Team Providers Name Role Phone Unavailable Primary Care Provider Unavailable Encounter Details Date Type Department Care Team Description 11/14/2021 Lab Requisition [facility] Outr Resulting Lab, Pathology & Laboratory Provider [facility] [address] [place] [address] Social History Tobacco Use Types Packs/Day Years Used Date Never Assessed Sex Assigned at Date Recorded Not on file documented as of this encounter Plan of Treatment Not on filedocumented as of this encounter Procedures Procedure Name Priority Date/Time Associated Diagnosis Comme nts COVID-19 TEST [facility] Today 11/13/2021 20:53 LAB PCR EDT COVID-19 TESTING Routine 11/13/2021 20:53 Results for this EDT procedure are i n the results section. documented in this encounter Results COVID-19 TEST [facility] LAB PCR (11/13/2021 20:53 EDT) Specimen Swab Performing Organization Address City/State/ZIP Code Phon e Number [facility] [address] [place] [address] SERVICES COVID-19 TESTING (11/13/2021 20:53 EDT) COVID-19 rt-PCR Negative Negative [facility] Result Comment: [facility] This test has not been FDA [...] was performed using the gabriele SARS-CoV-2 assay ([employer] on the [place] System Performing Lab [place] [address] [facility] Lab [facility] SERVICES Specimen Swab Performing Organization Address City/State/ZIP Code Phon e Number [facility] [address] [place] [phone] SERVICES documented in this encounter Visit Diagnoses Not on filedocumented in this encounter
--- OUTSIDE RECORDS SUMMARY | 2022-04-18 14:15 | XMS_ITS | Encounter Summary ---
:1995 Demographics Home Phone Preferred Language Unknown Marital Status Unknown Faith Affiliation Unknown Race Unknown Ethnic Group Unknown Author Organization [facility] Address [address] [place] [address] Care Team Providers Name Role Phone Unavailable Primary Care Provider Unavailable Encounter Details Date Type Department Care Team Description 10/22/2021 Lab Requisition [facility] Outr Resulting Lab, Pathology & Laboratory Provider [facility] [address] [place] [address] Social History Tobacco Use Types Packs/Day Years Used Date Never Assessed Sex Assigned at Date Recorded Not on file documented as of this encounter Plan of Treatment Not on filedocumented as of this encounter Procedures Procedure Name Priority Date/Time Associated Diagnosis Comme nts PTH INTACT Routine 10/22/2021 7:17 EDT Results for this procedure are i n the results section . documented in this encounter Results (ABNORMAL) PTH INTACT (10/22/2021 7:17 EDT) Pathologist Sig nature Intact PTH 208 (H) 19 - 88 pg/mL [facility] SERVICES Specimen Blood - Venous blood (substance) Performing Organization Address City/State/ZIP Code Phon e Number [facility] [address] [place] [address] SERVICES documented in this encounter Visit Diagnoses Not on filedocumented in this encounter
--- OUTSIDE RECORDS SUMMARY | 2022-04-18 14:15 | XMS_ITS | Encounter Summary ---
:1995 Demographics Home Phone Preferred Language Unknown Marital Status Unknown Religion Affiliation Unknown Race Unknown Ethnic Group Unknown Author Organization [facility] Address [address] [place] [address] Care Team Providers Name Role Phone Unavailable Primary Care Provider Unavailable Encounter Details Date Type Department Care Team Description 09/19/[address] [facility] Outr Resulting Lab, Pathology & Laboratory Provider [facility] [address] [place] [address] Social History Tobacco Use Types Packs/Day Years Used Date Never Assessed Sex Assigned at Date Recorded Not on file documented as of this encounter Plan of Treatment Not on filedocumented as of this encounter Procedures Procedure Name Priority Date/Time Associated Diagnosis Comme nts COVID-19 TEST [facility] Today 09/19/2021 12:12 LAB PCR EDT COVID-19 TESTING Routine 09/19/2021 12:12 Results for this EDT procedure are i n the results section. documented in this encounter Results COVID-19 TEST [facility] LAB PCR (09/19/2021 12:12 EDT) Specimen Swab Performing Organization Address City/State/ZIP Code Phon e Number [facility] [address] [place] [address] SERVICES COVID-19 TESTING (09/19/2021 12:12 EDT) COVID-19 rt-PCR Negative Negative [facility] Result Comment: [facility] This test has not been FDA [...] was performed using the gabriele SARS-CoV-2 assay ([employer] on the [place] [address] System Performing Lab [place] [address] [facility] Lab [facility] SERVICES Specimen Swab Performing Organization Address City/State/ZIP Code Phon e Number [facility] [address] [place] [phone] SERVICES documented in this encounter Visit Diagnoses Not on filedocumented in this encounter
[2022-04-18 14:17] VITALS: BP 112/69; PULSE 86; RESP 20; TEMP 37; O2SAT 95
--- NOTE | 2022-04-18 15:00 | DI.US_ITS ---
Exam(s) US HERNIA EXAM: US HERNIA CLINICAL HISTORY: eval for inguinal hernia TECHNIQUE: Ultrasound performed using standard protocol. COMPARISON: No exams were available for comparison FINDINGS: Soft tissue ultrasound was performed to evaluate for clinically suspected inguinal hernia. No hernia is identified by ultrasound criteria. No other significant findings. IMPRESSION: DATA REPOSITORY:
[2022-04-18 15:39] LABS: Bilirubin Negative (Negative); Blood Negative (Negative); Clarity Sl Cloudy (Clear); Glucose Negative (Negative); Ketones Negative (Negative); Leukocyte Esterase Negative (Negative); Nitrite Negative (Negative); Urobilinogen 0.2 EU/dL (Up TO 0.2)
[2022-04-18 15:58] LABS: Abs Immature Grans 0.02 10^3/uL (0.0-0.06); Absolute Basophil Count 0.07 10^3/uL (0.0-0.2); Absolute Eosinophil Count 0.33 10^3/uL (0.0-0.7); Absolute Lymphocyte Count 2.27 10^3/uL (1.2-3.4); Absolute Monocyte Count 1.01 10^3/uL (0.1-0.8); Absolute Neutrophil Count 6.23 10^3/uL (1.2-6.7); Basophils % 0.7; Eosinophils % 3.3; HGB 12.1 g/dL (13.5-17.5); Immature Grans % 0.2; Lymphocytes % 22.9; MCH 30.8 pg (27.0-33.0); MCHC 33.6 % (32.0-36.0); MCV 92 fL (80-95); Monocytes % 10.2; Neutrophils % 62.7; Platelet Count 281 10^3/uL (130-400); RBC 3.93 10^6/uL (4.36-5.78); RDW 11.4 % (11.8-14.1); RDW-SD 38.6 fL; WBC 9.93 10^3/uL (4.4-10.8)
--- NOTE | 2022-04-18 16:08 | W.ED.GENAD ---
Discharge Plan Disposition Patient Disposition: HOME Condition: Stable Discharge Details Clinical Impression: Hypercalcemia, Hypomagnesemia Primary Care Provider: Brendon Vivar ED Provider: Antoinette Templeton Home Meds and New Rx's Prescriptions: Continued methadone 10 mg/5 mL solution 110 mg PO QAM buspirone 10 mg Tablet 20 mg PO TID lorazepam [Ativan] 1 mg Tablet 1 mg PO QID No Action trazodone 100 mg tablet 1 tab PO HS Label Comments: TAKE ONE TABLET BY MOUTH AT BEDTIME penicillin V potassium 500 mg tablet 500 mg PO QID 7 Days Qty: 28 0RF calcitriol 0.25 mcg capsule 0.25 mcg PO DAILY Qty: 14 0RF magnesium gluconate 27 mg magnesium (500 mg) tablet 27 mg PO BID Qty: 10 0RF sennosides [senna] 8.6 mg tablet 1 tab PO DAILY Label Comments: TAKE TWO TABLETS BY MOUTH AT BEDTIME gabapentin 300 mg capsule 600 mg PO TID Label Comments: TAKE ONE CAPSULE BY MOUTH EVERY 6 HOURS NEEDED NOT TO EXCEED 2 IN 24 HOURS docusate sodium [Colace] 100 mg capsule 100 mg PO DAILY Qty: 60 0RF calcium carbonate [Tums] 200 mg calcium (500 mg) Tablet,Chewable 5,000 mg PO DIRECTED cyclobenzaprine 10 mg tablet Discharge Instructions Instructions: Hypomagnesemia (ED) Additional Instructions: Your calcium was slightly elevated today at 10.8, please do not take any Tums. Please discuss with endocrinology at [facility] regarding this. There is no evidence of hernia noted on ultrasound. Follow up with primary care provider in 3-5 days. Return to ED sooner if any worsening or concerns. Increase oral fluids. Please take Tylenol or Ibuprofen with food every 4-6 hours as needed for pain and swelling. Referrals: [facility] [Outside] - 1 day Brendon Vivar DO [Primary Care Provider] - 3 days Discharge Data Discharge Date/Time-TO BE ENTERED AT DEPARTURE: 04/18/22 17:51 Medical Decision Making 26-year-old male with past medical history of parathyroidectomy, hypocalcemia, anxiety chest pain hypomagnesemia presents to the ER with chief complaint of left groin pain that started few days ago. Work-up was ordered by my colleague prior to my arrival. CBC shows no leukocytosis hemoglobin 12.1 hematocrit 36.0 which is at patient's baseline, glucose 102 calcium was 10.8, magnesium was 1.6 alk phos is 125 urinalysis is within normal limits. Ultrasound shows no evidence of hernia. 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 He is remained hemodynamically stable throughout his stay here. He did get a liter of saline and a gram of mag IV. This text was generated using [employer] dictation system, please disregard any oddities of phrase or misspellings. Medical Records Medical records reviewed: Yes I reviewed the patient's medical records. Imaging Data Radiologic Study: Imaging: Ultrasound Radiologist's impression: EXAM: US HERNIA CLINICAL HISTORY: eval for inguinal hernia TECHNIQUE: Ultrasound performed using standard protocol. COMPARISON: No exams were available for comparison FINDINGS: Soft tissue ultrasound was performed to evaluate for clinically suspected inguinal hernia. No hernia is identified by ultrasound criteria. No other significant findings. Lab Data Lab results reviewed: Yes I reviewed the patient's lab results. Labs: Laboratory Tests Range/Units 04/18/22 04/18/22 04/18/22 15:30 15:50 15:50 WBC (4.4-10.8) 10^3/uL 9.93 RBC (4.36-5.78) 10^6/uL 3.93 L Hgb (13.5-17.5) g/dL 12.1 L Hct (40.0-50.0) % 36.0 L MCV (80-95) fL 92 MCH (27.0-33.0) pg 30.8 MCHC (32.0-36.0) % 33.6 RDW (11.8-14.1) % 11.4 L Plt Count (130-400) 10^3/uL 281 MPV (8.0-11.0) fL 11.0 Immature Gran % 0.2 Neutrophils % 62.7 Lymphocytes % 22.9 Monocytes % 10.2 Eosinophils % 3.3 Basophils % 0.7 Nucleated RBC % (0.0-0.3) % 0.0 Absolute Neutrophils (1.2-6.7) 10^3/uL 6.23 Absolute Lymphocytes (1.2-3.4) 10^3/uL 2.27 Absolute Monocytes (0.1-0.8) 10^3/uL 1.01 H Absolute Eosinophils (0.0-0.7) 10^3/uL 0.33 Absolute Basophils (0.0-0.2) 10^3/uL 0.07 Sodium (136-145) mmol/L 139 Potassium (3.5-5.1) mmol/L 4.1 Chloride (98-107) mmol/L 99 Carbon Dioxide (21.0-32.0) mmol/L 38.0 H Anion Gap (3-11) mmol/L 2.0 L BUN (7-18) mg/dL 15 Creatinine (0.70-1.30) mg/dL 1.3 Est GFR (CKD-EPI 2020) (mL/min/1.73m2) 76.74 Glucose (74-106) mg/dL 102 Calcium (8.5-10.1) mg/dL 10.8 H Magnesium (1.8-2.4) mg/dL 1.6 L Total Bilirubin (0.2-1.0) mg/dL 0.3 AST (15-37) U/L 26 ALT (16-63) U/L 54 Alkaline Phosphatase (46-116) U/L 125 H Total Protein (6.4-8.2) g/dL 7.7 Albumin (3.4-5.0) g/dL 3.6 Urine Color (Yellow) Yellow Urine Clarity (Clear) Sl Cloudy Urine pH (5-8) 7.0 Ur Specific [place] (1.005-1.025) 1.020 Urine Protein (Negative) mg/dL Negative Urine Ketones (Negative) mg/dL Negative Urine Blood (Negative) Negative Urine Nitrite (Negative) Negative Urine Bilirubin (Negative) Negative Urine Urobilinogen (Up TO 0.2) EU/dL 0.2 Ur Leukocyte Esterase (Negative) Negative Urine Glucose (Negative) mg/dL Negative HPI General Mode of arrival: ambulatory. Date/Time Provider Initiated Documentation: 04/18/22 14:59. Limitations to Documentation: no limitations. Information obtained by: patient, RN notes reviewed and old records reviewed. HPI Narrative: 26-year-old male with past medical history of parathyroidectomy, hypocalcemia, anxiety chest pain hypomagnesemia presents to the ER with chief complaint of left groin pain that started few days ago. He also reports that his leg feels swollen. Upon entering room he also states that he is having some chest pain shortness of breath. He said that started a few days ago as well. He was seen here couple days ago for dental pain and some low magnesium which she was treated for with 1 g IV. He has no other associated symptoms or complaints. Related Data Home Medications Medication Instructions Recorded Confirmed methadone 10 mg/5 mL oral solution 110 mg PO QAM 11/16/21 04/18/22 gabapentin 300 mg capsule 600 mg PO TID 12/20/21 04/18/22 sennosides 8.6 mg tablet (senna) 1 tab PO DAILY 12/20/21 04/18/22 docusate sodium 100 mg capsule 100 mg PO DAILY #60 caps 03/13/22 04/18/22 (Colace) penicillin V potassium 500 mg 500 mg PO QID 7 days #28 tabs 03/25/22 04/18/22 tablet trazodone 100 mg tablet 1 tab PO HS 03/25/22 04/18/22 buspirone 10 mg tablet 20 mg PO TID 03/28/22 04/18/22 calcitriol 0.25 mcg capsule 0.25 mcg PO DAILY #14 caps 03/28/22 04/18/22 magnesium gluconate 27 mg 27 mg PO BID #10 tabs 03/28/22 04/18/22 magnesium (500 mg) tablet lorazepam 1 mg tablet (Ativan) 1 mg PO QID 04/01/22 04/18/22 calcium carbonate 200 mg calcium 5,000 mg PO DIRECTED 04/16/22 04/18/22 (500 mg) chewable tablet (Tums) cyclobenzaprine 10 mg tablet tab 04/18/22 04/18/22 Previous Rx's Medication Instructions Recorded docusate sodium 100 mg capsule 100 mg PO DAILY #60 caps 03/13/22 (Colace) penicillin V potassium 500 mg 500 mg PO QID 7 days #28 tabs 03/25/22 tablet calcitriol 0.25 mcg capsule 0.25 mcg PO DAILY #14 caps 03/28/22 magnesium gluconate 27 mg 27 mg PO BID #10 tabs 03/28/22 magnesium (500 mg) tablet Allergies Allergy/AdvReac Type Severity Reaction Status Date / Time codeine Allergy Intermediate Verified 04/16/22 10:20 General Stated Complaint: GenMedical ADRIANA: 3 Review of Systems All systems reviewed & are unremarkable except as noted in HPI and below Cardiovascular Cardiovascular: Reports chest pain and Reports dyspnea Respiratory Respiratory: Reports dyspnea Genitourinary Genitourinary: Reports other (groin pain) [facility] All Active Problems (Updated 04/18/22 @ 17:40 by Antoinette Templeton NP) Dental infection (Acute) Anxiety (Chronic) Chest pain (Acute) Hypocalcemia (Acute) H/O parathyroidectomy (Acute) Hypocalcemia (Acute) Hypomagnesemia (Acute) Cramping of hands (Acute) Hypomagnesemia (Acute) Hypocalcemia (Acute) Muscle cramping (Acute) Hypocalcemia (Acute) Hypomagnesemia (Acute) Pain, dental (Acute) Hypomagnesemia (Acute) Anxiety (Chronic) Depression (Chronic) Depression (Chronic) Suicidal ideation (Acute) Elevated parathyroid hormone (Acute) Hyperlipidemia (Acute) Family history of coronary arteriosclerosis (Chronic) Father of LA at 50, mother had LA at 42 Family history of multiple endocrine neoplasia, type 1 (Acute) Severe anxiety with panic (Acute) Hypercalcemia (Acute) PTSD (post-traumatic stress disorder) (Acute) Cellulitis (Acute) Medical History Anxiety in acute stress reaction Cocaine use History of heroin abuse Surgical History No significant past surgical history Family History Mother Anxiety Asthma Depression Sister Anxiety Depression Father Cancer lung & stomach Depression Diabetes Hypertension MEN 1 (multiple endocrine neoplasia) Social History Smoking/Tobacco Use Status: Never Smoking risk assessment performed?: Yes Alcohol Intake: never Drug 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 Adopted: No Caregiver/Support person: No Foster care: No Household members: none Housing: house Number of Children: 0 Communication Needs: None Education Level: high school Do you need help understanding health information?: Never 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 and animals: Yes (Ally) Pets and animals: dog(s) Sexually active: No Do you think of yourself as: straight/heterosexual Current gender identity: male What is your relationship status?: How often do you talk on the phone with friends or family?: twice per week How often do you get together with friends or relatives?: never Do you belong to any clubs or organized social groups?: no Panel score (0-1 are the most socially isolated patients): 0 What type of physical activity do you participate in: walking Duration: 15-30 minutes/day Frequency: 5-6 times per week Maryam/Islam: Worship Special maryam needs: No Seatbelt use: always Helmet use: Yes Helmet use: always Drive 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 diesel pile driver operator: No Do you feel safe at home: Yes Do you feel safe in your relationship?: Yes Exam Narrative Exam Narrative: Constitutional: Alert and oriented x3. Appears stated age. Normal body habitus. Head: Normocephalic, no trauma. Eyes: Pupils PERRL, Red reflex noted, EOM's intact. Eyelids symmetrical without lesions, discharge, or swelling. ENT: Bilateral TM's WNL, External ear normal to inspection, no mastoid TTP, swelling, or erythema, Nasal turbinates WNL, no nasal discharge. Normal dentition, Posterior pharynx WNL, no exudate. Chest: RRR, Normal S1, S2, distal pulses intact. Resp: Lungs clear to auscultation bilaterally, no wheezes, rales, or rhonchi. Abdomen: Soft, non-distended, Normoactive bowel sounds all 4 quads. Left groin pain with palpation no masses. Musculoskeletal: Normal gait, 5/5 strength to all four extremities. Skin: No suspicious rashes or lesions. Capillary refill less than 2 sec. Neurologic: Cranial nerves II-XII intact. Alert and oriented x 3. Motor: No deficits noted. Sensory: Intact bilaterally all 4 extremities. Reflexes: DTR's intact bilaterally.. Hematologic/Lymphatic: No ecchymosis, no lymphadenopathy. Course Vital Signs Vital signs: Vital Signs Temperature 37.3 C 04/18/22 14:15 Pulse 118 H 04/18/22 14:15 Blood Pressure 129/72 04/18/22 14:15 Pulse Oximetry 95 04/18/22 14:15 Temperature 37 C 04/18/22 14:17 Temperature Source Temporal Artery Scan 04/18/22 14:17 Pulse 86 04/18/22 14:17 Respiratory Rate 20 04/18/22 14:17 Respiratory Effort 04/18/22 16:03 Blood Pressure 112/69 04/18/22 14:17 Pulse Oximetry 95 04/18/22 14:17 Oxygen Delivery Method Room Air 04/18/22 14:17 Oxygen Flow Rate 0 04/18/22 14:17 Pain Level 5 04/18/22 14:17 Lab/Test Results Lab/Test Results: Laboratory Tests Range/Units 04/18/22 04/18/22 15:30 15:50 WBC (4.4-10.8) 10^3/uL 9.93 RBC (4.36-5.78) 10^6/uL 3.93 L Hgb (13.5-17.5) g/dL 12.1 L Hct (40.0-50.0) % 36.0 L MCV (80-95) fL 92 MCH (27.0-33.0) pg 30.8 MCHC (32.0-36.0) % 33.6 RDW (11.8-14.1) % 11.4 L Plt Count (130-400) 10^3/uL 281 MPV (8.0-11.0) fL 11.0 Immature Gran % 0.2 Neutrophils % 62.7 Lymphocytes % 22.9 Monocytes % 10.2 Eosinophils % 3.3 Basophils % 0.7 Nucleated RBC % (0.0-0.3) % 0.0 Absolute Neutrophils (1.2-6.7) 10^3/uL 6.23 Absolute Lymphocytes (1.2-3.4) 10^3/uL 2.27 Absolute Monocytes (0.1-0.8) 10^3/uL 1.01 H Absolute Eosinophils (0.0-0.7) 10^3/uL 0.33 Absolute Basophils (0.0-0.2) 10^3/uL 0.07 Urine Color (Yellow) Yellow Urine Clarity (Clear) Sl Cloudy Urine pH (5-8) 7.0 Ur Specific [place] (1.005-1.025) 1.020 Urine Protein (Negative) mg/dL Negative Urine Ketones (Negative) mg/dL Negative Urine Blood (Negative) Negative Urine Nitrite (Negative) Negative Urine Bilirubin (Negative) Negative Urine Urobilinogen (Up TO 0.2) EU/dL 0.2 Ur Leukocyte Esterase (Negative) Negative Urine Glucose (Negative) mg/dL Negative
[2022-04-18 16:12] LABS: ALT 54 U/L (16-63); AST 26 U/L (15-37); Albumin 3.6 g/dL (3.4-5.0); Alkaline Phosphatase 125 U/L (46-116); BUN 15 mg/dL (7-18); Bilirubin, Total 0.3 mg/dL (0.2-1.0); CREATININE 1.3 mg/dL (0.70-1.30); Calcium 10.8 mg/dL (8.5-10.1); Chloride 99 mmol/L (98-107); Estimated GFR 76.74 (mL/min/1.73m2); Glucose 102 mg/dL (74-106); Magnesium 1.6 mg/dL (1.8-2.4); Potassium 4.1 mmol/L (3.5-5.1); Sodium 139 mmol/L (136-145); Total Protein 7.7 g/dL (6.4-8.2)
[2022-04-18] MEDS: MAGNESIUM SULFATE 1 GM/100 ML BAG IVPB (16:33)
[2022-04-18] MEDS: Normal Saline 1,000 ML 1000 ML IV (16:33)
[2022-04-18 17:39] VITALS: BP 109/65; PULSE 89; TEMP 36.8; O2SAT 98
== END 2022-04-18 17:51 | disposition home or self-care (01) ==
PROVIDERS: Physician Assistant; Emergency Provider Registered Nurse Emergency; PCP Family Medicine
DX: E83.52 Hypercalcemia (principal); E83.42 Hypomagnesemia; R10.32 Left lower quadrant pain
CPT/HCPCS: 36415; 76857; 80053; 96361; 96365; 99284; 81003; 83735; 85025; J3475

== ENCOUNTER 2022-04-19 12:26 | Emergency (ER) | payer MEDICAID, SELFPAY ==
[2022-04-19] VITALS (36 sets, daily range): BP systolic 86–121; BP diastolic 52–66; PULSE 62–97; RESP 8–27; TEMP 36.1–36.5; O2SAT 96–98
--- NOTE | 2022-04-19 12:30 | RT.EKG_ITS ---
APPROVED REPORT Exam: Resting ECG Reason for Exam: chest pain Patient Location: E HR:92 bpm ECG Measurements Heart Rate 92 AXIS MN 183 P 39 QRSd 92 QRS 44 QT 394 T 8 QTc 489 Conclusion Sinus rhythm...normal P axis, V-rate 60- 99 Prolonged QT interval...QTc >488mS. Sinus. Normal axis. No STEMI. I have reviewed and interpreted ECG and agree with software generated interpretation.
--- NOTE | 2022-04-19 12:36 | W.ED.GENAD ---
Discharge Plan Disposition Patient Disposition: HOME Condition: Stable Discharge Details Clinical Impression: Chest wall pain, Chronic chest pain, Acute thoracic myofascial strain Primary Care Provider: Brendon Vivar ED Provider: Breonna Bates Home Meds and New Rx's Prescriptions: Continued buspirone 10 mg tablet 20 mg PO TID Qty: 180 11RF cyclobenzaprine 10 mg tablet 10 mg PO BID Qty: 180 3RF gabapentin 600 mg tablet 600 mg PO TID Qty: 270 3RF trazodone 100 mg tablet 100 mg PO HS Qty: 90 3RF lorazepam [Ativan] 1 mg tablet 1 mg PO TID PRN (Reason: anxiety) Qty: 42 0RF methadone 10 mg/5 mL solution 110 mg PO QAM penicillin V potassium 500 mg tablet 500 mg PO QID 7 Days Qty: 28 0RF calcitriol 0.25 mcg capsule 0.25 mcg PO DAILY Qty: 14 0RF magnesium gluconate 27 mg magnesium (500 mg) tablet 27 mg PO BID Qty: 10 0RF sennosides [senna] 8.6 mg tablet 1 tab PO DAILY Label Comments: TAKE TWO TABLETS BY MOUTH AT BEDTIME docusate sodium [Colace] 100 mg capsule 100 mg PO DAILY Qty: 60 0RF calcium carbonate [Tums] 200 mg calcium (500 mg) Tablet,Chewable 5,000 mg PO DIRECTED Discharge Instructions Instructions: Chronic Pain (ED), Chest Wall Pain (ED) Additional Instructions: Your blood tests, EKG and imaging today are reassuring and show no evidence of acute concerning or significant findings. Drink plenty of fluids and get plenty of rest. Alternate tylenol and motrin as needed and directed for pain. Follow-up with your primary care doctor in 1 week. Return to the emergency department with any worsening or new concerning symptoms. Discharge Data Discharge Date/Time-TO BE ENTERED AT DEPARTURE: 04/19/22 15:39 Discharge Physician: Breonna Bates Medical Decision Making 26-year-old male with a history of multiple emergency department visits for various complaints, usually chest and abdominal pain with 43 visits since June 2021 and last seen here yesterday for groin pain presents for left upper back, left chest and diffuse abdominal pain since 40 minutes ago that started while sitting at his PCP office for a follow-up status post a recent [facility] visit. EKG on arrival notes a rate of 92, sinus, normal axis, no STEMI. Vitals within normal limits. Patient appears nontoxic but mildly anxious. He has reproducible left thoracic paraspinal tenderness and left anterior superior chest tenderness. There is no evidence of cellulitis, rash or trauma. His abdomen is soft and nontender. His lungs are clear bilaterally. Suspect chest wall strain and pain. We will obtain a cardiac work-up, D-dimer, chest x-ray and give a dose of Toradol. Labs and imaging reviewed. Normal white blood cell count. Normal LFTs. Normal lipase. Magnesium mildly low at 1.6. Will replete. Calcium within normal limits. Patient was seen here yesterday and was noted to have slightly elevated calcium with a low magnesium and was given magnesium supplementation. Patient has been taking Tums, calcitriol and magnesium status post his parathyroidectomy. Troponin within normal limits. D-dimer within normal limits. Chest x-ray negative. Patient reassessed and he is pain-free. He has had a few lower blood pressures with systolic of 80s to 90s. Blood pressure now 93/57. Review of records notes that patient has had similar blood pressures with systolic of 90s to 100s in the past. Patient is requesting to go home. Advised to continue taking his regular medications and potentially increase magnesium in his diet. Advised to follow-up with his scheduled appointment with endocrinology this month. Advised to follow up with the primary care doctor for re-evaluation. Usual and customary return precautions given prior to discharge. Medical Records Medical records reviewed: Yes I reviewed the patient's medical records. Imaging Data Radiologic Study: Radiologist's impression: XR CHEST 2V PA ? LATERAL CLINICAL HISTORY: ? chest and back pain, r/o acute disease. ? TECHNIQUE:? 2D digital imaging was performed. COMPARISON:? CR,XR XR PORTABLE CHEST AP from 03/31/2022 FINDINGS: 2 views: Heart size is normal.? The mediastinum is not widened. Lungs are clear.? No infiltrates nor pleural effusions. IMPRESSION: No acute pulmonary findings. Lab Data Lab results reviewed: Yes I reviewed the patient's lab results. Labs: Laboratory Tests Range/Units 04/19/22 04/19/22 04/19/22 12:40 12:40 12:40 WBC (4.4-10.8) 10^3/uL 7.85 RBC (4.36-5.78) 10^6/uL 3.67 L Hgb (13.5-17.5) g/dL 11.4 L Hct (40.0-50.0) % 33.9 L MCV (80-95) fL 92 MCH (27.0-33.0) pg 31.1 MCHC (32.0-36.0) % 33.6 RDW (11.8-14.1) % 11.4 L Plt Count (130-400) 10^3/uL 262 MPV (8.0-11.0) fL 10.7 Immature Gran % 0.4 Neutrophils % 46.2 Lymphocytes % 36.6 Monocytes % 11.6 Eosinophils % 4.3 Basophils % 0.9 Nucleated RBC % (0.0-0.3) % 0.0 Absolute Neutrophils (1.2-6.7) 10^3/uL 3.63 Absolute Lymphocytes (1.2-3.4) 10^3/uL 2.87 Absolute Monocytes (0.1-0.8) 10^3/uL 0.91 H Absolute Eosinophils (0.0-0.7) 10^3/uL 0.34 Absolute Basophils (0.0-0.2) 10^3/uL 0.07 D-Dimer (<500) ng/mlFEU 356 Sodium (136-145) mmol/L 143 Potassium (3.5-5.1) mmol/L 4.0 Chloride (98-107) mmol/L 102 Carbon Dioxide (21.0-32.0) mmol/L 35.1 H Anion Gap (3-11) mmol/L 5.9 BUN (7-18) mg/dL 12 Creatinine (0.70-1.30) mg/dL 1.2 Est GFR (CKD-EPI 2020) (mL/min/1.73m2) 84.48 Glucose (74-106) mg/dL 97 Calcium (8.5-10.1) mg/dL 8.7 Magnesium (1.8-2.4) mg/dL 1.6 L Total Bilirubin (0.2-1.0) mg/dL 0.3 AST (15-37) U/L 21 ALT (16-63) U/L 46 Alkaline Phosphatase (46-116) U/L 113 Troponin I (<or=60) ng/L < 50 Total Protein (6.4-8.2) g/dL 7.2 Albumin (3.4-5.0) g/dL 3.4 ECG Data Attestation: I personally reviewed and interpreted this ECG (s) as follows: Interpretation: Rate of 92, sinus, normal axis, QTC elevated at 454, no stemi. HPI General Mode of arrival: ambulatory. Date/Time Provider Initiated Documentation: 04/19/22 12:29. Limitations to Documentation: no limitations. Information obtained by: patient. HPI Narrative: Pt is a 26yo M who has been seen 43 times in the emergency department since June 2021 for frequent complaints of chest, back, and abdominal pain presents for chest, back, abdominal pain since 40 minutes ago that started while he was sitting at his pcp office for follow up of his recent [facility] visit status post his parathyroidectomy at [facility] on March 26. Patient states he was sitting at work today when he developed left upper back pain that radiated to his left upper chest along with diffuse abdominal pain. Related Data Home Medications Medication Instructions Recorded Confirmed methadone 10 mg/5 mL oral solution 110 mg PO QAM 11/16/21 04/19/22 sennosides 8.6 mg tablet (senna) 1 tab PO DAILY 12/20/21 04/19/22 docusate sodium 100 mg capsule 100 mg PO DAILY #60 caps 03/13/22 04/19/22 (Colace) penicillin V potassium 500 mg 500 mg PO QID 7 days #28 tabs 03/25/22 04/19/22 tablet calcitriol 0.25 mcg capsule 0.25 mcg PO DAILY #14 caps 03/28/22 04/19/22 magnesium gluconate 27 mg 27 mg PO BID #10 tabs 03/28/22 04/19/22 magnesium (500 mg) tablet calcium carbonate 200 mg calcium 5,000 mg PO DIRECTED 04/16/22 04/19/22 (500 mg) chewable tablet (Tums) buspirone 10 mg tablet 20 mg PO TID #180 tabs 04/19/22 04/19/22 cyclobenzaprine 10 mg tablet 10 mg PO BID #180 tabs 04/19/22 04/19/22 gabapentin 600 mg tablet 600 mg PO TID #270 tabs 04/19/22 04/19/22 lorazepam 1 mg tablet (Ativan) 1 mg PO TID PRN anxiety #42 tabs 04/19/22 04/19/22 trazodone 100 mg tablet 100 mg PO HS #90 tabs 04/19/22 04/19/22 Previous Rx's Medication Instructions Recorded docusate sodium 100 mg capsule 100 mg PO DAILY #60 caps 03/13/22 (Colace) penicillin V potassium 500 mg 500 mg PO QID 7 days #28 tabs 03/25/22 tablet calcitriol 0.25 mcg capsule 0.25 mcg PO DAILY #14 caps 03/28/22 magnesium gluconate 27 mg 27 mg PO BID #10 tabs 03/28/22 magnesium (500 mg) tablet buspirone 10 mg tablet 20 mg PO TID #180 tabs 04/19/22 cyclobenzaprine 10 mg tablet 10 mg PO BID #180 tabs 04/19/22 gabapentin 600 mg tablet 600 mg PO TID #270 tabs 04/19/22 lorazepam 1 mg tablet (Ativan) 1 mg PO TID PRN anxiety #42 tabs 04/19/22 trazodone 100 mg tablet 100 mg PO HS #90 tabs 04/19/22 Allergies Allergy/AdvReac Type Severity Reaction Status Date / Time codeine Allergy Intermediate Verified 04/19/22 12:33 General Stated Complaint: Chest Pain ADRIANA: 3 Review of Systems All systems reviewed & are unremarkable except as noted in HPI and below Constitutional Constitutional: Reports as per HPI, Denies chills and Denies fever(s) Eyes Eyes: Denies blurry vision ENT Ears, Nose, Mouth, and Throat: Denies dizziness, Denies sore throat and Denies throat swelling Cardiovascular Cardiovascular: Reports chest pain and Denies dyspnea Respiratory Respiratory: Denies cough and Denies dyspnea Gastrointestinal Gastrointestinal: Reports abdominal pain, Denies diarrhea and Denies vomiting Genitourinary Genitourinary: Denies hematuria and Denies dysuria Musculoskeletal Musculoskeletal: Reports back pain and Denies numbness Integumentary/Breasts Skin/Breast: Denies lesions and Denies rash Neurologic Neurologic: Denies dizziness, Denies localized weakness and Denies numbness Allergic/Immunologic Allergic/Immunologic: Denies throat swelling PFSH All Active Problems (Updated 04/19/22 @ 15:16 by Breonna Bates DO) Chest wall pain (Acute) Chronic chest pain (Acute) Acute thoracic myofascial strain (Acute) Dental infection (Acute) Anxiety (Chronic) Chest pain (Acute) Hypocalcemia (Acute) H/O parathyroidectomy (Acute) Hypocalcemia (Acute) Hypomagnesemia (Acute) Cramping of hands (Acute) Hypomagnesemia (Acute) Hypocalcemia (Acute) Muscle cramping (Acute) Hypocalcemia (Acute) Hypomagnesemia (Acute) Pain, dental (Acute) Hypomagnesemia (Acute) Anxiety (Chronic) Depression (Chronic) Depression (Chronic) Suicidal ideation (Acute) Elevated parathyroid hormone (Acute) Hyperlipidemia (Acute) Family history of coronary arteriosclerosis (Chronic) Father of CO at 50, mother had CO at 42 Family history of multiple endocrine neoplasia, type 1 (Acute) Severe anxiety with panic (Acute) Hypercalcemia (Acute) PTSD (post-traumatic stress disorder) (Acute) Cellulitis (Acute) Medical History Anxiety in acute stress reaction Cocaine use History of heroin abuse Surgical History No significant past surgical history Family History Mother Anxiety Asthma Depression Sister Anxiety Depression Father Cancer lung & stomach Depression Diabetes Hypertension MEN 1 (multiple endocrine neoplasia) Social History Smoking/Tobacco Use Status: Never Smoking risk assessment performed?: Yes Alcohol Intake: never Drug 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 Adopted: No Caregiver/Support person: No Foster care: No Household members: none Housing: house Number of Children: 0 Communication Needs: None Education Level: high school Do you need help understanding health information?: Never 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 and animals: Yes (Ally) Pets and animals: dog(s) Sexually active: No Do you think of yourself as: straight/heterosexual Current gender identity: male What is your relationship status?: How often do you talk on the phone with friends or family?: twice per week How often do you get together with friends or relatives?: never Do you belong to any clubs or organized social groups?: no Panel score (0-1 are the most socially isolated patients): 0 What type of physical activity do you participate in: walking Duration: 15-30 minutes/day Frequency: 5-6 times per week Maryam/Buddhism: Anglican Special maryam needs: No Seatbelt use: always Helmet use: Yes Helmet use: always 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 Exam Const General: cooperative, no acute distress and anxious Orientation: alert, awake and oriented x3 HENMT Head: normal to inspection Face and sinus: normal facial exam Eyes General: appearance normal, both eyes and all related structures Pupils: PERRL EOM: EOM intact bilaterally Neck Neck: normal visual inspection and No submandibular swelling Lymphatic: no lymphadenopathy noted Chest Chest: normal inspection of the chest and no tenderness Resp Effort & Inspection: normal respiratory effort and able to speak in complete sentences Auscultation: clear to auscultation bilaterally Cardio Rate: regular rate Rhythm: regular rhythm GI Inspection: normal to inspection Palpation: soft, not firm, not rigid and nontender Auscultation: hypoactive bowel sounds Back/Spine/Pelvis Thoracic/Lumbar Spine: thoracic and lumbar spine normal to inspection Back/spine/pelvis image: 1. Localized area of tenderness to palpation Left thoracic paraspinal region. There is no edema, erythema, ecchymoses, rash or lesions. Pain reproducible to movement of head. Skin General skin exam: no rashes or lesions noted Neuro General: patient alert, patient awake and patient oriented x3 Cognition: normal cognition Speech: speech normal Motor: muscle tone normal throughout and strength 5/5 throughout Sensory Exam: no sensory deficits noted Extrem General: normal to inspection, full ROM, capillary refill normal, no calf tenderness bilaterally and no edema Psych Appearance: grossly normal Mental Status: mental status grossly normal Speech and Movement: speech and movement normal Affect: normal affect Course Vital Signs Vital signs: Vital Signs Temperature 97.7 F 04/19/22 12:29 Pulse 94 H 04/19/22 12:29 Respiratory Rate 18 04/19/22 12:29 Blood Pressure 121/61 04/19/22 12:29 Pulse Oximetry 96 04/19/22 12:29 Temperature 97.7 F 04/19/22 12:29 Temperature Source Tympanic 04/19/22 12:29 Pulse 94 H 04/19/22 12:29 Respiratory Rate 18 04/19/22 12:29 Respiratory Effort Non-Labored 04/19/22 12:34 Blood Pressure 121/61 04/19/22 12:29 Blood Pressure Position Sitting 04/19/22 12:29 Pulse Oximetry 96 04/19/22 12:29
[2022-04-19 12:51] LABS: Abs Immature Grans 0.03 10^3/uL (0.0-0.06); Absolute Basophil Count 0.07 10^3/uL (0.0-0.2); Absolute Eosinophil Count 0.34 10^3/uL (0.0-0.7); Absolute Lymphocyte Count 2.87 10^3/uL (1.2-3.4); Absolute Monocyte Count 0.91 10^3/uL (0.1-0.8); Absolute Neutrophil Count 3.63 10^3/uL (1.2-6.7); Basophils % 0.9; Eosinophils % 4.3; HCT 33.9 % (40.0-50.0); HGB 11.4 g/dL (13.5-17.5); Immature Grans % 0.4; Lymphocytes % 36.6; MCH 31.1 pg (27.0-33.0); MCHC 33.6 % (32.0-36.0); MCV 92 fL (80-95); MPV 10.7 fL (8.0-11.0); Monocytes % 11.6; Neutrophils % 46.2; Platelet Count 262 10^3/uL (130-400); RBC 3.67 10^6/uL (4.36-5.78); RDW 11.4 % (11.8-14.1); RDW-SD 38.7 fL; WBC 7.85 10^3/uL (4.4-10.8)
--- NOTE | 2022-04-19 13:11 | DI.RAD_ITS ---
Exam(s) XR CHEST 2V PA LATERAL EXAM: XR CHEST 2V PA LATERAL CLINICAL HISTORY: chest and back pain, r/o acute disease. TECHNIQUE: 2D digital imaging was performed. COMPARISON: CR,XR XR PORTABLE CHEST AP from 03/31/2022 FINDINGS: 2 views: Heart size is normal. The mediastinum is not widened. Lungs are clear. No infiltrates nor pleural effusions. IMPRESSION: No acute pulmonary findings. DATA REPOSITORY: RADIATION DOSE DELIVERED:
[2022-04-19 13:27] LABS: ALT 46 U/L (16-63); AST 21 U/L (15-37); Albumin 3.4 g/dL (3.4-5.0); Alkaline Phosphatase 113 U/L (46-116); Anion Gap 5.9 mmol/L (3-11); BUN 12 mg/dL (7-18); Bilirubin, Total 0.3 mg/dL (0.2-1.0); CO2 35.1 mmol/L (21.0-32.0); CREATININE 1.2 mg/dL (0.70-1.30); Calcium 8.7 mg/dL (8.5-10.1); Chloride 102 mmol/L (98-107); Estimated GFR 84.48 (mL/min/1.73m2); Glucose 97 mg/dL (74-106); Magnesium 1.6 mg/dL (1.8-2.4); Sodium 143 mmol/L (136-145); Total Protein 7.2 g/dL (6.4-8.2); Troponin I < 50 ng/L (<or=60)
[2022-04-19 13:30] LABS: D-Dimer 356 ng/mlFEU (<500)
[2022-04-19] MEDS: Ketorolac 30 MG/ML VIAL IVP (13:33)
[2022-04-19] MEDS: MAGNESIUM SULFATE 1 GM/100 ML BAG IVPB (14:11)
[2022-04-19 15:30] LABS: Lipase 56 U/L (73-393)
== END 2022-04-19 15:39 | disposition home or self-care (01) ==
PROVIDERS: Emergency Provider Physician Assistant; PCP Family Medicine
DX: S29.012A Strain of muscle and tendon of back wall of thorax, initial encounter (principal); R07.89 Other chest pain; X58.XXXA Exposure to other specified factors, initial encounter; Y99.0 Civilian activity done for income or pay
CPT/HCPCS: 36415; 80053; 83690; 93005; 96365; 96375; 99284; 71046; 83735; 84484; 85025; 85379; 93010; J1885; J3475

== ENCOUNTER 2022-04-23 16:28 | Emergency (ER) | payer OTHER, MEDICAID, SELFPAY ==
[2022-04-23 16:54] VITALS: BP 126/80; PULSE 92; RESP 16; TEMP 36.5; O2SAT 96
[2022-04-23 17:49] LABS: Abs Immature Grans 0.06 10^3/uL (0.0-0.06); Absolute Basophil Count 0.06 10^3/uL (0.0-0.2); Absolute Eosinophil Count 0.45 10^3/uL (0.0-0.7); Absolute Lymphocyte Count 2.68 10^3/uL (1.2-3.4); Absolute Monocyte Count 1.48 10^3/uL (0.1-0.8); Basophils % 0.6; Eosinophils % 4.3; HCT 30.9 % (40.0-50.0); HGB 10.4 g/dL (13.5-17.5); Immature Grans % 0.6; Lymphocytes % 25.7; MCH 30.7 pg (27.0-33.0); MCHC 33.7 % (32.0-36.0); MCV 91 fL (80-95); MPV 10.7 fL (8.0-11.0); Monocytes % 14.2; Neutrophils % 54.6; Platelet Count 241 10^3/uL (130-400); RBC 3.39 10^6/uL (4.36-5.78); RDW 11.5 % (11.8-14.1); RDW-SD 38.4 fL; WBC 10.43 10^3/uL (4.4-10.8)
[2022-04-23 18:09] LABS: ALT 39 U/L (16-63); AST 24 U/L (15-37); Alkaline Phosphatase 99 U/L (46-116); Anion Gap 2.9 mmol/L (3-11); BUN 12 mg/dL (7-18); Bilirubin, Total 0.2 mg/dL (0.2-1.0); CO2 38.1 mmol/L (21.0-32.0); CREATININE 1.4 mg/dL (0.70-1.30); Calcium 11.5 mg/dL (8.5-10.1); Chloride 103 mmol/L (98-107); Estimated GFR 70.21 (mL/min/1.73m2); Glucose 86 mg/dL (74-106); Magnesium 1.7 mg/dL (1.8-2.4); Potassium 4.1 mmol/L (3.5-5.1); Sodium 144 mmol/L (136-145); Total Protein 6.4 g/dL (6.4-8.2); Troponin I < 50 ng/L (<or=60)
--- NOTE | 2022-04-23 18:34 | W.ED.GENAD ---
Discharge Plan Disposition Patient Disposition: HOME Condition: Stable Discharge Details Chief Complaint: Dizzy/Sync Clinical Impression: Anemia, Fatigue Primary Care Provider: Brendon Vivar ED Provider: Lester Bundy Home Meds and New Rx's Prescriptions: Continued buspirone 10 mg tablet 20 mg PO TID Qty: 180 11RF cyclobenzaprine 10 mg tablet 10 mg PO BID Qty: 180 3RF gabapentin 600 mg tablet 600 mg PO TID Qty: 270 3RF trazodone 100 mg tablet 100 mg PO HS Qty: 90 3RF lorazepam [Ativan] 1 mg tablet 1 mg PO TID PRN (Reason: anxiety) Qty: 42 0RF methadone 10 mg/5 mL solution 110 mg PO QAM calcitriol 0.25 mcg capsule 0.25 mcg PO DAILY Qty: 14 0RF magnesium gluconate 27 mg magnesium (500 mg) tablet 27 mg PO BID Qty: 10 0RF sennosides [senna] 8.6 mg tablet 1 tab PO DAILY Label Comments: TAKE TWO TABLETS BY MOUTH AT BEDTIME docusate sodium [Colace] 100 mg capsule 100 mg PO DAILY Qty: 60 0RF calcium carbonate [Tums] 200 mg calcium (500 mg) Tablet,Chewable 5,000 mg PO DIRECTED Discharge Instructions Instructions: Rectal Bleeding (ED), Fatigue (ED), Anemia (ED) Additional Instructions: Rest at home over the next couple days. Please contact your primary care physician to arrange follow-up. Call tomorrow. Please follow-up with general surgery. Return to the ER immediately for any worsening or new concerning symptoms. Referrals: [facility] [Provider Group] Brendon Vivar DO [Primary Care Provider] - Discharge Data Discharge Date/Time-TO BE ENTERED AT DEPARTURE: 04/23/22 20:38 Medical Decision Making 1842??26-year-old male here with generalized fatigue over the past few weeks, had parathyroidectomy about a month ago. Consider hypothyroidism versus acute electrolyte abnormality. Initial labs reviewed and magnesium mildly low. I will give Mag-Ox 400 mg. Patient does have anemia. 1999 --significant delay waiting for TSH. TSH reviewed and negative. Concerned that it may be related to anemia. Hemoglobin has dropped from 12 to 11 to 10 over the past week. Patient does note he had some blood in his stool today. No melena. I recommended rectal exam and patient provided informed refusal. Plan to repeat hemoglobin as patient now 3 hours. 2029 --hemoglobin is stable at 10.5. Patient hemodynamically stable. Plan for discharge with close outpatient follow-up. Will refer to general surgery for potential scope. HPI General Mode of arrival: ambulatory. Date/Time Provider Initiated Documentation: 04/23/22 16:36. Limitations to Documentation: no limitations. Information obtained by: patient. HPI Narrative: 26-year-old male with multiple medical problems listed including history of recent parathyroidectomy about a month ago, concern for MEN, here with chief complaint of fatigue. Patient notes moderate to severe fatigue over the past few weeks. No modifiers. Patient does note he is not sleeping well at home. Patient is concerned that he may be hypocalcemic or have low magnesium. Related Data Home Medications Medication Instructions Recorded Confirmed methadone 10 mg/5 mL oral solution 110 mg PO QAM 11/16/21 04/30/22 sennosides 8.6 mg tablet (senna) 1 tab PO DAILY 12/20/21 04/30/22 docusate sodium 100 mg capsule 100 mg PO DAILY #60 caps 03/13/22 04/30/22 (Colace) calcitriol 0.25 mcg capsule 0.25 mcg PO DAILY #14 caps 03/28/22 04/30/22 magnesium gluconate 27 mg 27 mg PO BID #10 tabs 03/28/22 04/30/22 magnesium (500 mg) tablet calcium carbonate 200 mg calcium 5,000 mg PO DIRECTED 04/16/22 04/30/22 (500 mg) chewable tablet (Tums) buspirone 10 mg tablet 20 mg PO TID #180 tabs 04/19/22 04/30/22 cyclobenzaprine 10 mg tablet 10 mg PO BID #180 tabs 04/19/22 04/30/22 gabapentin 600 mg tablet 600 mg PO TID #270 tabs 04/19/22 04/30/22 lorazepam 1 mg tablet (Ativan) 1 mg PO TID PRN anxiety #42 tabs 04/19/22 04/30/22 trazodone 100 mg tablet 100 mg PO HS #90 tabs 04/19/22 04/30/22 Previous Rx's Medication Instructions Recorded docusate sodium 100 mg capsule 100 mg PO DAILY #60 caps 03/13/22 (Colace) calcitriol 0.25 mcg capsule 0.25 mcg PO DAILY #14 caps 03/28/22 magnesium gluconate 27 mg 27 mg PO BID #10 tabs 03/28/22 magnesium (500 mg) tablet buspirone 10 mg tablet 20 mg PO TID #180 tabs 04/19/22 cyclobenzaprine 10 mg tablet 10 mg PO BID #180 tabs 04/19/22 gabapentin 600 mg tablet 600 mg PO TID #270 tabs 04/19/22 lorazepam 1 mg tablet (Ativan) 1 mg PO TID PRN anxiety #42 tabs 04/19/22 trazodone 100 mg tablet 100 mg PO HS #90 tabs 04/19/22 Allergies Allergy/AdvReac Type Severity Reaction Status Date / Time codeine Allergy Intermediate Verified 04/30/22 05:38 General Stated Complaint: Dizzy/Sync ADRIANA: 3 Review of Systems All systems reviewed & are unremarkable except as noted in HPI and below Cardiovascular Cardiovascular: Denies chest pain Gastrointestinal Gastrointestinal: Denies abdominal pain PFSH All Active Problems (Updated 05/02/22 @ 07:08 by Uday Whitaker) Chronic constipation (Chronic) Primary hyperparathyroidism (Chronic) Viral syndrome (Acute) Vomiting (Acute) Abdominal pain (Acute) Depression (Chronic) Suicidal ideations (Acute) Chest wall pain (Acute) Chronic chest pain (Acute) Acute thoracic myofascial strain (Acute) Anemia (Chronic) Fatigue (Acute) Hypocalcemia (Chronic) Hypomagnesemia (Chronic) Pain, dental (Acute) Hypomagnesemia (Acute) Depression (Chronic) Suicidal ideation (Acute) Elevated parathyroid hormone (Acute) Family history of coronary arteriosclerosis (Chronic) Father of [place] at 50, mother had [place] at 42 Severe anxiety with panic (Acute) Hypercalcemia (Acute) Cellulitis (Acute) Medical History Anxiety Depression Family history of multiple endocrine neoplasia, type 1 Hyperlipidemia Hypocalcemia PTSD (post-traumatic stress disorder) Surgical History H/O parathyroidectomy Family History Mother Anxiety Asthma Depression Sister Anxiety Depression Father Cancer lung & stomach Depression Diabetes Hypertension MEN 1 (multiple endocrine neoplasia) Social History Smoking/Tobacco Use Status: Never Smoking risk assessment performed?: Yes Alcohol Intake: never Drug 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 Adopted: No Caregiver/Support person: No Foster care: No Household members: none Housing: house Number of Children: 0 Communication Needs: None Education Level: high school Do you need help understanding health information?: Never 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 and animals: Yes (Ally) Pets and animals: dog(s) Sexually active: No Do you think of yourself as: straight/heterosexual Current gender identity: male What is your relationship status?: How often do you talk on the phone with friends or family?: twice per week How often do you get together with friends or relatives?: never Do you belong to any clubs or organized social groups?: no Panel score (0-1 are the most socially isolated patients): 0 What type of physical activity do you participate in: walking Duration: 15-30 minutes/day Frequency: 5-6 times per week Maryam/Anglican: Mormonism Special maryam needs: No Seatbelt use: always Helmet use: Yes Helmet use: always Drive 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 Do you feel safe at home: Yes Do you feel safe in your relationship?: Yes Exam Const General: cooperative and no acute distress Other: fatigued HENMT Mouth: moist mucous membranes Eyes Conjunctivae: normal conjunctivae Sclera: normal sclerae Neck Neck: trachea midline and supple Resp Auscultation: clear to auscultation bilaterally, no rales, no rhonchi and no wheezes Cardio Rate: regular rate and not tachycardic Rhythm: regular rhythm GI Palpation: soft, not firm, no guarding, no masses, not rigid and nontender Skin General skin exam: no rashes or lesions noted Neuro General: patient alert, patient awake, patient oriented x3 and tone normal Extrem General: no edema Psych Appearance: grossly normal Mental Status: mental status grossly normal Course Vital Signs Vital signs: Vital Signs Temperature 36.5 C 04/23/22 16:54 Pulse 92 H 04/23/22 16:54 Respiratory Rate 16 04/23/22 16:54 Blood Pressure 126/80 04/23/22 16:54 Pulse Oximetry 96 04/23/22 16:54 Temperature 36.5 C 04/23/22 16:54 Temperature Source Tympanic 04/23/22 16:54 Pulse 92 H 04/23/22 16:54 Respiratory Rate 16 04/23/22 16:54 Respiratory Effort Non-Labored 04/23/22 16:58 Blood Pressure 126/80 04/23/22 16:54 Blood Pressure Position Sitting 04/23/22 16:54 Pulse Oximetry 96 04/23/22 16:54 Oxygen Delivery Method Room Air 04/23/22 16:54 Oxygen Flow Rate 0 04/23/22 16:54 Pain Level 0 04/23/22 16:54 Lab/Test Results Lab/Test Results: Laboratory Tests Range/Units 04/23/22 04/23/22 17:45 17:45 WBC (4.4-10.8) 10^3/uL 10.43 RBC (4.36-5.78) 10^6/uL 3.39 L Hgb (13.5-17.5) g/dL 10.4 L Hct (40.0-50.0) % 30.9 L MCV (80-95) fL 91 MCH (27.0-33.0) pg 30.7 MCHC (32.0-36.0) % 33.7 RDW (11.8-14.1) % 11.5 L Plt Count (130-400) 10^3/uL 241 MPV (8.0-11.0) fL 10.7 Immature Gran % 0.6 Neutrophils % 54.6 Lymphocytes % 25.7 Monocytes % 14.2 Eosinophils % 4.3 Basophils % 0.6 Nucleated RBC % (0.0-0.3) % 0.0 Absolute Neutrophils (1.2-6.7) 10^3/uL 5.70 Absolute Lymphocytes (1.2-3.4) 10^3/uL 2.68 Absolute Monocytes (0.1-0.8) 10^3/uL 1.48 H Absolute Eosinophils (0.0-0.7) 10^3/uL 0.45 Absolute Basophils (0.0-0.2) 10^3/uL 0.06 Sodium (136-145) mmol/L 144 Potassium (3.5-5.1) mmol/L 4.1 Chloride (98-107) mmol/L 103 Carbon Dioxide (21.0-32.0) mmol/L 38.1 H Anion Gap (3-11) mmol/L 2.9 L BUN (7-18) mg/dL 12 Creatinine (0.70-1.30) mg/dL 1.4 H Est GFR (CKD-EPI 2020) (mL/min/1.73m2) 70.21 Glucose (74-106) mg/dL 86 Calcium (8.5-10.1) mg/dL 11.5 H Magnesium (1.8-2.4) mg/dL 1.7 L Total Bilirubin (0.2-1.0) mg/dL 0.2 AST (15-37) U/L 24 ALT (16-63) U/L 39 Alkaline Phosphatase (46-116) U/L 99 Troponin I (<or=60) ng/L < 50 Total Protein (6.4-8.2) g/dL 6.4 Albumin (3.4-5.0) g/dL 3.0 L
[2022-04-23 19:12] LABS: TSH (W/Ref FT4) 1.94 uIU/mL (0.36-3.74)
[2022-04-23] MEDS: Magnesium Oxide 400 MG TAB PO (20:15)
[2022-04-23 20:18] LABS: HCT 31.4 % (40.0-50.0); HGB 10.5 g/dL (13.5-17.5); MCH 30.7 pg (27.0-33.0); MCHC 33.4 % (32.0-36.0); MCV 92 fL (80-95); MPV 10.6 fL (8.0-11.0); Platelet Count 233 10^3/uL (130-400); RBC 3.42 10^6/uL (4.36-5.78); RDW 11.5 % (11.8-14.1); RDW-SD 38.6 fL; WBC 9.37 10^3/uL (4.4-10.8)
--- NOTE | 2022-04-24 00:14 | NUR.NOTE ---
Referral faxed to [facility] to f/u radha for rectal bleeding/anemia.Nursing Note:
== END 2022-04-23 20:38 | disposition home or self-care (01) ==
PROVIDERS: Emergency Provider Student in an Organized Health Care Education/Training Program; PCP Family Medicine
DX: D64.9 Anemia, unspecified (principal); R53.83 Other fatigue; Z90.89 Acquired absence of other organs; E83.42 Hypomagnesemia; K92.1 Melena
CPT/HCPCS: 80053; 85027; 99282; 83735; 84443; 84484; 85025

== ENCOUNTER 2022-04-26 12:32 | Emergency (ER) | payer MEDICAID, SELFPAY ==
[2022-04-26 12:34] VITALS: BP 112/66; PULSE 105; RESP 18; TEMP 37.2; O2SAT 99
[2022-04-26 13:19] LABS: Abs Immature Grans 0.04 10^3/uL (0.0-0.06); Absolute Basophil Count 0.05 10^3/uL (0.0-0.2); Absolute Lymphocyte Count 2.03 10^3/uL (1.2-3.4); Absolute Monocyte Count 0.96 10^3/uL (0.1-0.8); Absolute Neutrophil Count 6.18 10^3/uL (1.2-6.7); Basophils % 0.5; Eosinophils % 2.1; HCT 39.1 % (40.0-50.0); HGB 13.1 g/dL (13.5-17.5); Immature Grans % 0.4; Lymphocytes % 21.5; MCH 30.1 pg (27.0-33.0); MCHC 33.5 % (32.0-36.0); MCV 90 fL (80-95); MPV 10.3 fL (8.0-11.0); Monocytes % 10.1; Neutrophils % 65.4; Platelet Count 324 10^3/uL (130-400); RBC 4.35 10^6/uL (4.36-5.78); RDW 11.5 % (11.8-14.1); RDW-SD 37.7 fL; WBC 9.46 10^3/uL (4.4-10.8)
[2022-04-26 13:40] LABS: ALT 44 U/L (16-63); AST 26 U/L (15-37); Albumin 3.9 g/dL (3.4-5.0); Alkaline Phosphatase 127 U/L (46-116); Anion Gap 7.6 mmol/L (3-11); BUN 16 mg/dL (7-18); Bilirubin, Total 0.5 mg/dL (0.2-1.0); CO2 32.4 mmol/L (21.0-32.0); CREATININE 1.7 mg/dL (0.70-1.30); Chloride 98 mmol/L (98-107); Estimated GFR 55.62 (mL/min/1.73m2); Glucose 113 mg/dL (74-106); Potassium 4.6 mmol/L (3.5-5.1); Sodium 138 mmol/L (136-145); Total Protein 8.7 g/dL (6.4-8.2)
[2022-04-26 13:46] LABS: Calcium 11.7 mg/dL (8.5-10.1)
[2022-04-26 14:05] LABS: Magnesium 1.9 mg/dL (1.8-2.4)
[2022-04-26] MEDS: Normal Saline Flush 10 ML SYR IVP (14:10)
[2022-04-26] MEDS: Normal Saline 1,000 ML 1000 ML IV (14:10)
--- NOTE | 2022-04-26 14:15 | ED.GENADUL_ITS ---
Discharge Plan Disposition Patient Disposition: HOME Condition: Improving Discharge Details Chief Complaint: RespSymp Clinical Impression: Viral syndrome, Vomiting Primary Care Provider: Brendon Vivar ED Provider: Breonna Bates Home Meds and New Rx's Prescriptions: Continued buspirone 10 mg tablet 20 mg PO TID Qty: 180 11RF cyclobenzaprine 10 mg tablet 10 mg PO BID Qty: 180 3RF gabapentin 600 mg tablet 600 mg PO TID Qty: 270 3RF trazodone 100 mg tablet 100 mg PO HS Qty: 90 3RF lorazepam [Ativan] 1 mg tablet 1 mg PO TID PRN (Reason: anxiety) Qty: 42 0RF methadone 10 mg/5 mL solution 110 mg PO QAM calcitriol 0.25 mcg capsule 0.25 mcg PO DAILY Qty: 14 0RF magnesium gluconate 27 mg magnesium (500 mg) tablet 27 mg PO BID Qty: 10 0RF sennosides [senna] 8.6 mg tablet 1 tab PO DAILY Label Comments: TAKE TWO TABLETS BY MOUTH AT BEDTIME docusate sodium [Colace] 100 mg capsule 100 mg PO DAILY Qty: 60 0RF calcium carbonate [Tums] 200 mg calcium (500 mg) Tablet,Chewable 5,000 mg PO DIRECTED Discharge Instructions Instructions: Viral Syndrome (ED) Additional Instructions: Your blood tests today revealed that your calcium was slightly elevated. The remainder of your lab tests are reassuring and showed no evidence of acute concerning or significant findings. You tested negative today for influenza and COVID. If your symptoms persist or worsen, it is recommended to be retested for influenza and COVID. Drink plenty of fluids and get plenty of rest. Alternate tylenol and motrin as needed and directed for pain. Follow-up with your primary care doctor in 1 week. Return to the emergency department with any worsening or new concerning symptoms. Discharge Data Discharge Date/Time-TO BE ENTERED AT DEPARTURE: 04/26/22 16:08 Discharge Physician: Breonna Bates Medical Decision Making 18-year-old male well-known to the emergency department with multiple visits for various complaints with a history of anxiety, depression, PTSD, hyperlipidemia, parathyroidectomy who presents from home for generalized fatigue, body aches, headache, rhinorrhea, sore throat, vomiting and dizziness for the past 2 days. Recent contact with COVID-positive patient in his building. Heart rate mildly elevated on arrival. He appears comfortable and nontoxic. He is afebrile. Normal ENT exam. Lungs clear throughout. Abdomen soft and nontender. No meningeal signs. Differential diagnosis includes viral illness, COVID, influenza, dehydration, electrolyte abnormality. History of presentation does not appear consistent with pneumonia, meningitis or PE. Will place an IV, bolus IV fluids, screening labs, IV toradol, IV tylenol, IV antiemetic and reassess. Labs reviewed. Normal white blood cell count. Hemoglobin 13. Calcium minimally elevated 11.7. Normal magnesium. Creatinine 1.7 which is minimally elevated compared to recent baseline and may be consistent with mild dehydration in the setting of vomiting. Fluvid negative. Patient reassessed and he feels much better and would like to go home. Advised to follow up with the primary care doctor for re-evaluation. Usual and customary return precautions given prior to discharge. Medical Records Medical records reviewed: Yes I reviewed the patient's medical records. Lab Data Lab results reviewed: Yes I reviewed the patient's lab results. Labs: Laboratory Tests Range/Units 04/26/22 04/26/22 04/26/22 13:13 13:13 13:13 WBC (4.4-10.8) 10^3/uL 9.46 RBC (4.36-5.78) 10^6/uL 4.35 L Hgb (13.5-17.5) g/dL 13.1 L D Hct (40.0-50.0) % 39.1 L MCV (80-95) fL 90 MCH (27.0-33.0) pg 30.1 MCHC (32.0-36.0) % 33.5 RDW (11.8-14.1) % 11.5 L Plt Count (130-400) 10^3/uL 324 MPV (8.0-11.0) fL 10.3 Immature Gran % 0.4 Neutrophils % 65.4 Lymphocytes % 21.5 Monocytes % 10.1 Eosinophils % 2.1 Basophils % 0.5 Nucleated RBC % (0.0-0.3) % 0.0 Absolute Neutrophils (1.2-6.7) 10^3/uL 6.18 Absolute Lymphocytes (1.2-3.4) 10^3/uL 2.03 Absolute Monocytes (0.1-0.8) 10^3/uL 0.96 H Absolute Eosinophils (0.0-0.7) 10^3/uL 0.20 Absolute Basophils (0.0-0.2) 10^3/uL 0.05 Sodium (136-145) mmol/L 138 Potassium (3.5-5.1) mmol/L 4.6 Chloride (98-107) mmol/L 98 Carbon Dioxide (21.0-32.0) mmol/L 32.4 H Anion Gap (3-11) mmol/L 7.6 BUN (7-18) mg/dL 16 Creatinine (0.70-1.30) mg/dL 1.7 H Est GFR (CKD-EPI 2020) (mL/min/1.73m2) 55.62 Glucose (74-106) mg/dL 113 H Calcium (8.5-10.1) mg/dL 11.7 H* Magnesium (1.8-2.4) mg/dL 1.9 Total Bilirubin (0.2-1.0) mg/dL 0.5 AST (15-37) U/L 26 ALT (16-63) U/L 44 Alkaline Phosphatase (46-116) U/L 127 H Total Protein (6.4-8.2) g/dL 8.7 H Albumin (3.4-5.0) g/dL 3.9 COVID-19 Source SARS-CoV-2 (PCR) (Negative) Influenza Type A (PCR) (Negative) Influenza Type B (PCR) (Negative) RSV (PCR) (Negative) Range/Units 04/26/22 14:18 WBC (4.4-10.8) 10^3/uL RBC (4.36-5.78) 10^6/uL Hgb (13.5-17.5) g/dL Hct (40.0-50.0) % MCV (80-95) fL MCH (27.0-33.0) pg MCHC (32.0-36.0) % RDW (11.8-14.1) % Plt Count (130-400) 10^3/uL MPV (8.0-11.0) fL Immature Gran % Neutrophils % Lymphocytes % Monocytes % Eosinophils % Basophils % Nucleated RBC % (0.0-0.3) % Absolute Neutrophils (1.2-6.7) 10^3/uL Absolute Lymphocytes (1.2-3.4) 10^3/uL Absolute Monocytes (0.1-0.8) 10^3/uL Absolute Eosinophils (0.0-0.7) 10^3/uL Absolute Basophils (0.0-0.2) 10^3/uL Sodium (136-145) mmol/L Potassium (3.5-5.1) mmol/L Chloride (98-107) mmol/L Carbon Dioxide (21.0-32.0) mmol/L Anion Gap (3-11) mmol/L BUN (7-18) mg/dL Creatinine (0.70-1.30) mg/dL Est GFR (CKD-EPI 2020) (mL/min/1.73m2) Glucose (74-106) mg/dL Calcium (8.5-10.1) mg/dL Magnesium (1.8-2.4) mg/dL Total Bilirubin (0.2-1.0) mg/dL AST (15-37) U/L ALT (16-63) U/L Alkaline Phosphatase (46-116) U/L Total Protein (6.4-8.2) g/dL Albumin (3.4-5.0) g/dL COVID-19 Source Nasopharynx SARS-CoV-2 (PCR) (Negative) Negative Influenza Type A (PCR) (Negative) Negative Influenza Type B (PCR) (Negative) Negative RSV (PCR) (Negative) Negative HPI General Mode of arrival: EMS . Date/Time Provider Initiated Documentation: 04/26/22 12:46 . Limitations to Documentation: no limitations . Information obtained by: patient . HPI Narrative: Patient is a 26-year-old male with a history of multiple emergency department visits for various complaints presents from home after he called the ambulance for generalized fatigue, body aches, headache, runny nose, sore throat, vomiting and dizziness over the past few days. Patient states a neighbor was recently diagnosed with COVID. Patient states he is unvaccinated for COVID and has had COVID 2 previous times and states her symptoms feel similar. Patient states he has been unable to keep down his medications secondary to the vomiting and fatigue. He states he generalized weakness and fatigue is bothering him the most. He denies any significant cough or difficulty breathing. He states he is able to drink some water in the waiting room and denies any vomiting after this. Related Data Home Medications Medication Instructions Recorded Confirmed methadone 10 mg/5 mL oral solution 110 mg PO QAM 11/16/21 04/30/22 sennosides 8.6 mg tablet (senna) 1 tab PO DAILY 12/20/21 04/30/22 docusate sodium 100 mg capsule 100 mg PO DAILY #60 caps 03/13/22 04/30/22 (Colace) calcitriol 0.25 mcg capsule 0.25 mcg PO DAILY #14 caps 03/28/22 04/30/22 magnesium gluconate 27 mg 27 mg PO BID #10 tabs 03/28/22 04/30/22 magnesium (500 mg) tablet calcium carbonate 200 mg calcium 5,000 mg PO DIRECTED 04/16/22 04/30/22 (500 mg) chewable tablet (Tums) buspirone 10 mg tablet 20 mg PO TID #180 tabs 04/19/22 04/30/22 cyclobenzaprine 10 mg tablet 10 mg PO BID #180 tabs 04/19/22 04/30/22 gabapentin 600 mg tablet 600 mg PO TID #270 tabs 04/19/22 04/30/22 lorazepam 1 mg tablet (Ativan) 1 mg PO TID PRN anxiety #42 tabs 04/19/22 04/30/22 trazodone 100 mg tablet 100 mg PO HS #90 tabs 04/19/22 04/30/22 Previous Rx's Medication Instructions Recorded docusate sodium 100 mg capsule 100 mg PO DAILY #60 caps 03/13/22 (Colace) calcitriol 0.25 mcg capsule 0.25 mcg PO DAILY #14 caps 03/28/22 magnesium gluconate 27 mg 27 mg PO BID #10 tabs 03/28/22 magnesium (500 mg) tablet buspirone 10 mg tablet 20 mg PO TID #180 tabs 04/19/22 cyclobenzaprine 10 mg tablet 10 mg PO BID #180 tabs 04/19/22 gabapentin 600 mg tablet 600 mg PO TID #270 tabs 04/19/22 lorazepam 1 mg tablet (Ativan) 1 mg PO TID PRN anxiety #42 tabs 04/19/22 trazodone 100 mg tablet 100 mg PO HS #90 tabs 04/19/22 Allergies Allergy/AdvReac Type Severity Reaction Status Date / Time codeine Allergy Intermediate Verified 04/30/22 05:38 General Stated Complaint: RespSymp ADRIANA: 3 Review of Systems All systems reviewed & are unremarkable except as noted in HPI and below Constitutional Constitutional: Reports as per HPI, Reports body ache(s), Denies chills, Reports fatigue, Denies fever(s) and Reports headache(s) Eyes Eyes: Denies blurry vision ENT Ears, Nose, Mouth, and Throat: Reports dizziness, Reports headache(s), Reports sore throat and Denies throat swelling Cardiovascular Cardiovascular: Denies chest pain and Denies dyspnea Respiratory Respiratory: Denies cough and Denies dyspnea Gastrointestinal Gastrointestinal: Denies abdominal pain, Denies diarrhea and Reports vomiting Genitourinary Genitourinary: Denies hematuria and Denies dysuria Musculoskeletal Musculoskeletal: Denies back pain and Denies numbness Integumentary/Breasts Skin/Breast: Denies lesions and Denies rash Neurologic Neurologic: Reports dizziness, Reports headache(s), Denies localized weakness and Denies numbness Endocrine Endocrine: Reports fatigue Allergic/Immunologic Allergic/Immunologic: Denies throat swelling [facility] All Active Problems (Updated 05/02/22 @ 07:08 by Uday Whitaker) Chronic constipation (Chronic) Primary hyperparathyroidism (Chronic) Viral syndrome (Acute) Vomiting (Acute) Abdominal pain (Acute) Depression (Chronic) Suicidal ideations (Acute) Chest wall pain (Acute) Chronic chest pain (Acute) Acute thoracic myofascial strain (Acute) Anemia (Chronic) Fatigue (Acute) Hypocalcemia (Chronic) Hypomagnesemia (Chronic) Pain, dental (Acute) Hypomagnesemia (Acute) Depression (Chronic) Suicidal ideation (Acute) Elevated parathyroid hormone (Acute) Family history of coronary arteriosclerosis (Chronic) Father of RI at 50, mother had RI at 42 Severe anxiety with panic (Acute) Hypercalcemia (Acute) Cellulitis (Acute) Medical History Anxiety Depression Family history of multiple endocrine neoplasia, type 1 Hyperlipidemia Hypocalcemia PTSD (post-traumatic stress disorder) Surgical History H/O parathyroidectomy Family History Mother Anxiety Asthma Depression Sister Anxiety Depression Father Cancer lung & stomach Depression Diabetes Hypertension MEN 1 (multiple endocrine neoplasia) Social History Smoking/Tobacco Use Status: Never Smoking risk assessment performed?: Yes Alcohol Intake: never Drug 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 Adopted: No Caregiver/Support person: No Foster care: No Household members: none Housing: house Number of Children: 0 Communication Needs: None Education Level: high school Do you need help understanding health information?: Never 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 and animals: Yes (Ally) Pets and animals: dog(s) Sexually active: No Do you think of yourself as: straight/heterosexual Current gender identity: male What is your relationship status?: How often do you talk on the phone with friends or family?: twice per week How often do you get together with friends or relatives?: never Do you belong to any clubs or organized social groups?: no Panel score (0-1 are the most socially isolated patients): 0 What type of physical activity do you participate in: walking Duration: 15-30 minutes/day Frequency: 5-6 times per week Maryam/Jew: Nondenominational Special maryam needs: No Seatbelt use: always Helmet use: Yes Helmet use: always Drive 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 passenger coach 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 Exam Const General: cooperative and no acute distress Orientation: alert, awake and oriented x3 HENMT Head: normal to inspection Ears: hearing grossly normal bilaterally and external ears normal Face and sinus: normal facial exam Mouth: oral mucosae normal Eyes General: appearance normal, both eyes and all related structures Pupils: PERRL EOM: EOM intact bilaterally Neck Neck: normal visual inspection and No submandibular swelling Lymphatic: no lymphadenopathy noted Chest Chest: normal inspection of the chest and no tenderness Resp Effort & Inspection: normal respiratory effort and able to speak in complete sentences Auscultation: clear to auscultation bilaterally Cardio Rate: tachycardic Rhythm: regular rhythm GI Inspection: normal to inspection Palpation: soft, not firm, not rigid and nontender Auscultation: hypoactive bowel sounds Skin General skin exam: no rashes or lesions noted Neuro General: patient alert, patient awake and patient oriented x3 Cognition: normal cognition Speech: speech normal Motor: muscle tone normal throughout Sensory Exam: no sensory deficits noted Extrem General: normal to inspection, full ROM, capillary refill normal, no calf tenderness bilaterally and no edema Psych Appearance: grossly normal Mental Status: mental status grossly normal Speech and Movement: speech and movement normal Affect: normal affect Course Vital Signs Vital signs: Vital Signs Temperature 98.9 F 04/26/22 12:34 Pulse 105 H 04/26/22 12:34 Respiratory Rate 18 04/26/22 12:34 Blood Pressure 112/66 04/26/22 12:34 Pulse Oximetry 99 04/26/22 12:34 Temperature 98.9 F 04/26/22 12:34 Temperature Source Tympanic 04/26/22 12:34 Pulse 105 H 04/26/22 12:34 Respiratory Rate 18 04/26/22 12:34 Respiratory Effort 04/26/22 12:49 Respiratory Depth Normal 04/26/22 12:49 Blood Pressure 112/66 04/26/22 12:34 Blood Pressure Position Sitting 04/26/22 12:34 Pulse Oximetry 99 04/26/22 12:34 Oxygen Delivery Method Room Air 04/26/22 12:34 Oxygen Flow Rate 0 04/26/22 12:34 Pain Level 5 04/26/22 12:34 Lab/Test Results Lab/Test Results: Laboratory Tests Range/Units 04/26/22 04/26/22 04/26/22 13:13 13:13 13:13 WBC (4.4-10.8) 10^3/uL 9.46 RBC (4.36-5.78) 10^6/uL 4.35 L Hgb (13.5-17.5) g/dL 13.1 L D Hct (40.0-50.0) % 39.1 L MCV (80-95) fL 90 MCH (27.0-33.0) pg 30.1 MCHC (32.0-36.0) % 33.5 RDW (11.8-14.1) % 11.5 L Plt Count (130-400) 10^3/uL 324 MPV (8.0-11.0) fL 10.3 Immature Gran % 0.4 Neutrophils % 65.4 Lymphocytes % 21.5 Monocytes % 10.1 Eosinophils % 2.1 Basophils % 0.5 Nucleated RBC % (0.0-0.3) % 0.0 Absolute Neutrophils (1.2-6.7) 10^3/uL 6.18 Absolute Lymphocytes (1.2-3.4) 10^3/uL 2.03 Absolute Monocytes (0.1-0.8) 10^3/uL 0.96 H Absolute Eosinophils (0.0-0.7) 10^3/uL 0.20 Absolute Basophils (0.0-0.2) 10^3/uL 0.05 Sodium (136-145) mmol/L 138 Potassium (3.5-5.1) mmol/L 4.6 Chloride (98-107) mmol/L 98 Carbon Dioxide (21.0-32.0) mmol/L 32.4 H Anion Gap (3-11) mmol/L 7.6 BUN (7-18) mg/dL 16 Creatinine (0.70-1.30) mg/dL 1.7 H Est GFR (CKD-EPI 2020) (mL/min/1.73m2) 55.62 Glucose (74-106) mg/dL 113 H Calcium (8.5-10.1) mg/dL 11.7 H* Magnesium (1.8-2.4) mg/dL 1.9 Total Bilirubin (0.2-1.0) mg/dL 0.5 AST (15-37) U/L 26 ALT (16-63) U/L 44 Alkaline Phosphatase (46-116) U/L 127 H Total Protein (6.4-8.2) g/dL 8.7 H Albumin (3.4-5.0) g/dL 3.9
[2022-04-26] MEDS: Ketorolac 30 MG/ML VIAL IVP (14:52)
[2022-04-26] MEDS: ACETAMINOPHEN 1,000 MG/100 ML BTL 400 MG IVPB (14:54)
[2022-04-26 15:13] LABS: COVID-19 PCR Negative (Negative); Influenza A PCR Negative (Negative); Influenza B PCR Negative (Negative); RSV PCR Negative (Negative); Source Nasopharynx
--- NOTE | 2022-04-26 15:27 | NUR.NOTE ---
pt provided with meal tray Nursing Note:
[2022-04-26 15:55] VITALS: BP 118/79; PULSE 92; RESP 16; TEMP 35.8; O2SAT 94
== END 2022-04-26 16:08 | disposition home or self-care (01) ==
PROVIDERS: Emergency Provider Physician Assistant; PCP Family Medicine
DX: B34.9 Viral infection, unspecified (principal); E83.52 Hypercalcemia; R00.0 Tachycardia, unspecified; R94.4 Abnormal results of kidney function studies; Z20.822 Contact with and (suspected) exposure to COVID-19; Z28.310 Unvaccinated for COVID-19
CPT/HCPCS: 80053; 87637; 96361; 96374; 96375; 99284; 83735; 85025; J0131; J1885

== ENCOUNTER 2022-04-29 12:17 | Emergency (ER) | payer MEDICAID, SELFPAY ==
[2022-04-29] VITALS (101 sets, daily range): BP systolic 111–146; BP diastolic 65–114; PULSE 68–153; RESP 7–28; TEMP 36.6; O2SAT 91–100
--- NOTE | 2022-04-29 12:30 | RT.EKG_ITS ---
APPROVED REPORT Exam: Resting ECG Reason for Exam: chest pain Patient Location: E HR:107 bpm ECG Measurements Heart Rate 107 AXIS AZ 170 P 50 QRSd 93 QRS 58 QT 348 T 15 QTc 465 Conclusion Sinus tachycardia...rate> 99 sinus tachycardia at 107, normal axis, QTC 465, no STEMI, nondiagnostic EKG
--- NOTE | 2022-04-29 12:56 | NUR.NOTE ---
Patient has complaints of burning with urination. Urine sample collected Nursing Note:
[2022-04-29 13:38] LABS: Abs Immature Grans 0.04 10^3/uL (0.0-0.06); Absolute Basophil Count 0.05 10^3/uL (0.0-0.2); Absolute Eosinophil Count 0.34 10^3/uL (0.0-0.7); Absolute Lymphocyte Count 2.71 10^3/uL (1.2-3.4); Absolute Neutrophil Count 4.92 10^3/uL (1.2-6.7); Basophils % 0.6; Eosinophils % 3.8; HCT 33.4 % (40.0-50.0); HGB 11.2 g/dL (13.5-17.5); Immature Grans % 0.4; Lymphocytes % 29.9; MCH 30.7 pg (27.0-33.0); MCHC 33.5 % (32.0-36.0); MCV 92 fL (80-95); MPV 10.5 fL (8.0-11.0); Neutrophils % 54.3; Platelet Count 269 10^3/uL (130-400); RBC 3.65 10^6/uL (4.36-5.78); RDW 11.5 % (11.8-14.1); RDW-SD 38.6 fL; WBC 9.06 10^3/uL (4.4-10.8)
[2022-04-29] MEDS: LORazepam 2 MG/ML VIAL 0.5 MG IVP (13:39)
[2022-04-29] MEDS: Normal Saline 1,000 ML 1000 ML IV ×2 (13:40→17:46)
[2022-04-29 14:12] LABS: ALT 31 U/L (16-63); AST 19 U/L (15-37); Albumin 3.4 g/dL (3.4-5.0); Alkaline Phosphatase 92 U/L (46-116); Anion Gap 5.8 mmol/L (3-11); BUN 18 mg/dL (7-18); Bilirubin, Total 0.3 mg/dL (0.2-1.0); CO2 34.2 mmol/L (21.0-32.0); CREATININE 1.4 mg/dL (0.70-1.30); Calcium 9.2 mg/dL (8.5-10.1); Chloride 103 mmol/L (98-107); Estimated GFR 70.21 (mL/min/1.73m2); Glucose 109 mg/dL (74-106); Magnesium 1.6 mg/dL (1.8-2.4); Potassium 3.3 mmol/L (3.5-5.1); Sodium 143 mmol/L (136-145); TSH (W/Ref FT4) 2.25 uIU/mL (0.36-3.74); Total Protein 7.4 g/dL (6.4-8.2); Troponin I < 50 ng/L (<or=60)
[2022-04-29 14:23] LABS: D-Dimer 392 ng/mlFEU (<500)
[2022-04-29] MEDS: MAGNESIUM SULFATE 1 GM/100 ML BAG IVPB (14:38)
[2022-04-29 16:48] LABS: Bilirubin Negative (Negative); Blood Negative (Negative); Clarity Clear (Clear); Glucose Negative (Negative); Ketones Negative (Negative); Leukocyte Esterase Negative (Negative); Nitrite Negative (Negative); Urobilinogen 0.2 EU/dL (Up TO 0.2); pH 7.5 (5-8)
[2022-04-29 16:50] LABS: Troponin I < 50 ng/L (<or=60)
--- NOTE | 2022-04-29 17:18 | ED.GENADUL_ITS ---
Discharge Plan Disposition Patient Disposition: HOME Condition: Stable Discharge Details Chief Complaint: GenMedical Clinical Impression: Hypomagnesemia Primary Care Provider: Brendon Vivar ED Provider: Ricardo Crabtree Home Meds and New Rx's Prescriptions: Continued buspirone 10 mg tablet 20 mg PO TID Qty: 180 11RF cyclobenzaprine 10 mg tablet 10 mg PO BID Qty: 180 3RF gabapentin 600 mg tablet 600 mg PO TID Qty: 270 3RF trazodone 100 mg tablet 100 mg PO HS Qty: 90 3RF lorazepam [Ativan] 1 mg tablet 1 mg PO TID PRN (Reason: anxiety) Qty: 42 0RF methadone 10 mg/5 mL solution 110 mg PO QAM calcitriol 0.25 mcg capsule 0.25 mcg PO DAILY Qty: 14 0RF magnesium gluconate 27 mg magnesium (500 mg) tablet 27 mg PO BID Qty: 10 0RF sennosides [senna] 8.6 mg tablet 1 tab PO DAILY Label Comments: TAKE TWO TABLETS BY MOUTH AT BEDTIME docusate sodium [Colace] 100 mg capsule 100 mg PO DAILY Qty: 60 0RF calcium carbonate [Tums] 200 mg calcium (500 mg) Tablet,Chewable 5,000 mg PO DIRECTED Discharge Instructions Additional Instructions: follow up with your primary care provider within 1 week if you feel more ill, have severe pain or persistent vomiting return to the emergency department Discharge Data Discharge Date/Time-TO BE ENTERED AT DEPARTURE: 04/29/22 19:05 Medical Decision Making Concern for dehydration, metabolic/lyte derangment, bowel obstruction, other. Doubt ACS, PE. Exam/hx at this time is not c/w CVA, acute pathology of the sp inal cord, sepsis, acute emergent intracranial pathology, acute aortic pathology. Plan for EKG, IV placement, IVF hydration, screening labs, CT a/p. CT negative for acute process. Mag 1.6. Will replete. Pt reports feeling improved after IVF, denies chest pain or abdominal pain. Prior to d/c Pt states that he feels he has been urinating too much and feeling very thirsty. He requests 2nd liter IVF. Denies any other symptoms. Will send urine osm, urine specfic gravity okay. I discussed Pt presentation and results with PCP Dr. Vivar over the phone, will f/u outpt with Pt and look for osm results. Pt signed out at time of shift change with IVF, reassessment pending. Medical Records Medical records reviewed: Yes I reviewed the patient's medical records. Imaging Data Radiologic Study: Radiologist's impression: CT ABDOMEN ? PELVIS W EXAM: ? CT ABDOMEN ? PELVIS W CLINICAL HISTORY: ? abdominal pain. ? TECHNIQUE:? Imaging Protocol: Axial computed tomography images with coronal and sagittal reformatted images were created and reviewed CONTRAST MATERIAL:? Intravenous: Omnipaque 100cc Oral: None COMPARISON:? CT CT ABDOMEN ? PELVIS W from 03/06/2022 FINDINGS: VISUALIZED LUNG BASES: No nodules nor pleural effusions evident.? ABDOMEN: There is no ascites. LIVER: There are no focal hepatic lesions evident.? Minimally dilated ducts are again noted in the left hepatic lobe. GALLBLADDER/BILIARY: No obvious gallbladder pathology.? CBD diameter is upper normal. PANCREAS: No evidence of pancreatic mass nor dilatation of the pancreatic duct.? SPLEEN: Spleen is not enlarged.? Small calcified splenic granulomas noted.? No significant intrasplenic lesions.? Splenic and portal veins are patent. ADRENALS: There are no significant adrenal masses. KIDNEYS:No cysts evident.? No solid renal masses.? No calculi nor hydronephrosis.. ABDOMINAL AORTA: Abdominal aorta is not enlarged. LYMPH NODES:There is no retroperitoneal nor paraaortic adenopathy. ABDOMINAL WALL: No evidence of significant anterior abdominal wall nor inguinal hernia. GI: Abundant fecal material in the colon but no distinct transition point.? There is no significant sigmoid diverticular disease. PELVIS:? GI: No evidence of appendicitis.No evidence of sigmoid diverticulitis. LYMPH NODES: There is no intrapelvic nor inguinal adenopathy. REPRODUCTIVE: Prostate not enlarged URINARY BLADDER: No calculi nor obvious masses evident OSSEOUS: No significant osseous lesions. IMPRESSION: 1. No significant acute findings in the abdomen pelvis. 2. Abundant fecal material is noted in the colon no bowel obstruction. 3. No ascites. Lab Data Lab results reviewed: Yes I reviewed the patient's lab results. Labs: Laboratory Tests Range/Units 04/29/22 04/29/22 04/29/22 13:25 13:25 13:25 WBC (4.4-10.8) 10^3/uL 9.06 RBC (4.36-5.78) 10^6/uL 3.65 L Hgb (13.5-17.5) g/dL 11.2 L Hct (40.0-50.0) % 33.4 L MCV (80-95) fL 92 MCH (27.0-33.0) pg 30.7 MCHC (32.0-36.0) % 33.5 RDW (11.8-14.1) % 11.5 L Plt Count (130-400) 10^3/uL 269 MPV (8.0-11.0) fL 10.5 Immature Gran % 0.4 Neutrophils % 54.3 Lymphocytes % 29.9 Monocytes % 11.0 Eosinophils % 3.8 Basophils % 0.6 Nucleated RBC % (0.0-0.3) % 0.0 Absolute Neutrophils (1.2-6.7) 10^3/uL 4.92 Absolute Lymphocytes (1.2-3.4) 10^3/uL 2.71 Absolute Monocytes (0.1-0.8) 10^3/uL 1.00 H Absolute Eosinophils (0.0-0.7) 10^3/uL 0.34 Absolute Basophils (0.0-0.2) 10^3/uL 0.05 D-Dimer (<500) ng/mlFEU 392 Sodium (136-145) mmol/L 143 Potassium (3.5-5.1) mmol/L 3.3 L Chloride (98-107) mmol/L 103 Carbon Dioxide (21.0-32.0) mmol/L 34.2 H Anion Gap (3-11) mmol/L 5.8 BUN (7-18) mg/dL 18 Creatinine (0.70-1.30) mg/dL 1.4 H Est GFR (CKD-EPI 2020) (mL/min/1.73m2) 70.21 Glucose (74-106) mg/dL 109 H Calcium (8.5-10.1) mg/dL 9.2 Magnesium (1.8-2.4) mg/dL 1.6 L Total Bilirubin (0.2-1.0) mg/dL 0.3 AST (15-37) U/L 19 ALT (16-63) U/L 31 Alkaline Phosphatase (46-116) U/L 92 Troponin I (<or=60) ng/L < 50 Total Protein (6.4-8.2) g/dL 7.4 Albumin (3.4-5.0) g/dL 3.4 TSH (0.36-3.74) uIU/mL 2.25 Urine Color (Yellow) Urine Clarity (Clear) Urine pH (5-8) Ur Specific [place] (1.005-1.025) Urine Protein (Negative) mg/dL Urine Ketones (Negative) mg/dL Urine Blood (Negative) Urine Nitrite (Negative) Urine Bilirubin (Negative) Urine Urobilinogen (Up TO 0.2) EU/dL Ur Leukocyte Esterase (Negative) Urine Osmolality (150-1150) mOsm/kg Urine Glucose (Negative) mg/dL Range/Units 04/29/22 04/29/22 04/29/22 16:12 16:20 16:20 WBC (4.4-10.8) 10^3/uL RBC (4.36-5.78) 10^6/uL Hgb (13.5-17.5) g/dL Hct (40.0-50.0) % MCV (80-95) fL MCH (27.0-33.0) pg MCHC (32.0-36.0) % RDW (11.8-14.1) % Plt Count (130-400) 10^3/uL MPV (8.0-11.0) fL Immature Gran % Neutrophils % Lymphocytes % Monocytes % Eosinophils % Basophils % Nucleated RBC % (0.0-0.3) % Absolute Neutrophils (1.2-6.7) 10^3/uL Absolute Lymphocytes (1.2-3.4) 10^3/uL Absolute Monocytes (0.1-0.8) 10^3/uL Absolute Eosinophils (0.0-0.7) 10^3/uL Absolute Basophils (0.0-0.2) 10^3/uL D-Dimer (<500) ng/mlFEU Sodium (136-145) mmol/L Potassium (3.5-5.1) mmol/L Chloride (98-107) mmol/L Carbon Dioxide (21.0-32.0) mmol/L Anion Gap (3-11) mmol/L BUN (7-18) mg/dL Creatinine (0.70-1.30) mg/dL Est GFR (CKD-EPI 2020) (mL/min/1.73m2) Glucose (74-106) mg/dL Calcium (8.5-10.1) mg/dL Magnesium (1.8-2.4) mg/dL Total Bilirubin (0.2-1.0) mg/dL AST (15-37) U/L ALT (16-63) U/L Alkaline Phosphatase (46-116) U/L Troponin I (<or=60) ng/L < 50 Total Protein (6.4-8.2) g/dL Albumin (3.4-5.0) g/dL TSH (0.36-3.74) uIU/mL Urine Color (Yellow) Straw Urine Clarity (Clear) Clear Urine pH (5-8) 7.5 Ur Specific [place] (1.005-1.025) 1.020 Urine Protein (Negative) mg/dL Negative Urine Ketones (Negative) mg/dL Negative Urine Blood (Negative) Negative Urine Nitrite (Negative) Negative Urine Bilirubin (Negative) Negative Urine Urobilinogen (Up TO 0.2) EU/dL 0.2 Ur Leukocyte Esterase (Negative) Negative Urine Osmolality (150-1150) mOsm/kg 259 Urine Glucose (Negative) mg/dL Negative ECG Data Attestation: I personally reviewed and interpreted this ECG (s) as follows: Interpretation: EKG shows sinus tachycardia at 107, normal axis, QTC 465, no STEMI, nondiagnostic EKG HPI General Mode of arrival: ambulatory . Date/Time Provider Initiated Documentation: 04/29/22 12:44 . Limitations to Documentation: no limitations . Information obtained by: patient, RN notes reviewed and old records reviewed . HPI Narrative: Pedro Pablo Cortes is a 26 y/o man with h/o MEN 1, HLD, s/p recent parathyroidectomy presenting to the ED with generalized weakness. [place] [facility] [place] Had multiple subsequent ED visits for hypocalcemia, was [place] [facility] [place] Pt reports that he was discharged from that admission approximately 3 weeks ago. States that since discharge he has had good days and bad days, where bad days consist of lightheadedess, general weakness, chest pain, abdominal pain. Pt reports that he had been feeling well yesterday and this morning. He reports that he has had chronic constipation. States that this morning had a large, hard bowel movement. States that since that time has been feeling unwell. He reports general weakness, lightheadedness, chest pain, abdominal pain, and numbness in both feet. Pt reports that there was no sudden change, symptoms presented gradually and at different times, and are waxing and waning. Pt reports that he has been feeling very thirst and has been drinking copious amounts of water. Related Data Home Medications Medication Instructions Recorded Confirmed methadone 10 mg/5 mL oral solution 110 mg PO QAM 11/16/21 04/30/22 sennosides 8.6 mg tablet (senna) 1 tab PO DAILY 12/20/21 04/30/22 docusate sodium 100 mg capsule 100 mg PO DAILY #60 caps 03/13/22 04/30/22 (Colace) calcitriol 0.25 mcg capsule 0.25 mcg PO DAILY #14 caps 03/28/22 04/30/22 magnesium gluconate 27 mg 27 mg PO BID #10 tabs 03/28/22 04/30/22 magnesium (500 mg) tablet calcium carbonate 200 mg calcium 5,000 mg PO DIRECTED 04/16/22 04/30/22 (500 mg) chewable tablet (Tums) buspirone 10 mg tablet 20 mg PO TID #180 tabs 04/19/22 04/30/22 cyclobenzaprine 10 mg tablet 10 mg PO BID #180 tabs 04/19/22 04/30/22 gabapentin 600 mg tablet 600 mg PO TID #270 tabs 04/19/22 04/30/22 lorazepam 1 mg tablet (Ativan) 1 mg PO TID PRN anxiety #42 tabs 04/19/22 04/30/22 trazodone 100 mg tablet 100 mg PO HS #90 tabs 04/19/22 04/30/22 Previous Rx's Medication Instructions Recorded docusate sodium 100 mg capsule 100 mg PO DAILY #60 caps 03/13/22 (Colace) calcitriol 0.25 mcg capsule 0.25 mcg PO DAILY #14 caps 03/28/22 magnesium gluconate 27 mg 27 mg PO BID #10 tabs 03/28/22 magnesium (500 mg) tablet buspirone 10 mg tablet 20 mg PO TID #180 tabs 04/19/22 cyclobenzaprine 10 mg tablet 10 mg PO BID #180 tabs 04/19/22 gabapentin 600 mg tablet 600 mg PO TID #270 tabs 04/19/22 lorazepam 1 mg tablet (Ativan) 1 mg PO TID PRN anxiety #42 tabs 04/19/22 trazodone 100 mg tablet 100 mg PO HS #90 tabs 04/19/22 Allergies Allergy/AdvReac Type Severity Reaction Status Date / Time codeine Allergy Intermediate Verified 04/30/22 05:38 General Stated Complaint: GenMedical ADRIANA: 3 Review of Systems Narrative: Constitutional: denies fevers, reports general weakness Eyes: denies eye pain ENT: denies ear pain, dental pain, sore throat Cardiovascular: denies edema, reports chest pain Respiratory: denies SOB, cough GI: denies vomiting, diarrhea, reports abdominal pain, chronic constipation : denies flank pain, dysuria MSK: denies back pain, neck pain, arthralgias, myalgias Skin: denies rash Neuro: denies headaches, focal weakness, reports numbness both feet Endo: reports poldipsia, polyuria PFSH All Active Problems Chronic constipation (Chronic) Primary hyperparathyroidism (Chronic) Viral syndrome (Acute) Vomiting (Acute) Abdominal pain (Acute) Depression (Chronic) Chest wall pain (Acute) Chronic chest pain (Acute) Acute thoracic myofascial strain (Acute) Anemia (Chronic) Fatigue (Acute) Hypocalcemia (Chronic) Hypomagnesemia (Chronic) Pain, dental (Acute) Hypomagnesemia (Acute) Depression (Chronic) Suicidal ideation (Acute) Elevated parathyroid hormone (Acute) Family history of coronary arteriosclerosis (Chronic) Father of VT at 50, mother had VT at 42 Severe anxiety with panic (Acute) Hypercalcemia (Acute) Cellulitis (Acute) Medical History Anxiety Depression Family history of multiple endocrine neoplasia, type 1 Hyperlipidemia Hypocalcemia PTSD (post-traumatic stress disorder) Surgical History H/O parathyroidectomy Family History Mother Anxiety Asthma Depression Sister Anxiety Depression Father Cancer lung & stomach Depression Diabetes Hypertension MEN 1 (multiple endocrine neoplasia) Social History Smoking/Tobacco Use Status: Never Smoking risk assessment performed?: Yes Alcohol Intake: never Drug 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 Adopted: No Caregiver/Support person: No Foster care: No Household members: none Housing: house Number of Children: 0 Communication Needs: None Education Level: high school Do you need help understanding health information?: Never 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 and animals: Yes (Ally) Pets and animals: dog(s) Sexually active: No Do you think of yourself as: straight/heterosexual Current gender identity: male What is your relationship status?: How often do you talk on the phone with friends or family?: twice per week How often do you get together with friends or relatives?: never Do you belong to any clubs or organized social groups?: no Panel score (0-1 are the most socially isolated patients): 0 What type of physical activity do you participate in: walking Duration: 15-30 minutes/day Frequency: 5-6 times per week Maryam/Protestant: Gnosticist Special maryam needs: No Seatbelt use: always Helmet use: Yes Helmet use: always Drive 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 bulk tank 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 Exam Narrative Exam Narrative: Constitutional: well and [id number], anxious, conversing normally HENT: head atraumatic/normocephalic/normal inspection, mucous membranes somewhat dry Eyes: conjunctiva normal, sclera normal, pupils 3mm b/l ERRLA, EOMI without nystagmus Neck: no stridor, normal ROM, trachea midline Chest: normal inspection Resp: normal work of breathing, LCTAB Cardio: tachycardic rate, normal rhythm, no murmur appreciated GI: abdomen soft, generalized TTP without rebound or guarding, non-distended Back: normal inspection, no rash Skin: warm, dry, normal color, no rash Neuro: alert, not altered, motor 5/5 throughout, mud tank operator 2-12 intact, sensation intact throughout, normal tone Ext: no edema, no posterior calf TTP Psych: normal mood, normal affect, normal behavior Course Vital Signs Vital signs: Vital Signs Temperature 36.6 C 04/29/22 12:34 Pulse 113 H 04/29/22 12:34 Respiratory Rate 20 04/29/22 12:34 Blood Pressure 144/114 H 04/29/22 12:34 Pulse Oximetry 98 04/29/22 12:34 Temperature 36.6 C 04/29/22 12:34 Temperature Source Oral 04/29/22 12:34 Pulse 92 H 04/29/22 14:16 Pulse 92 H 04/29/22 14:20 Respiratory Rate 13 04/29/22 14:20 Respiratory Effort 04/29/22 16:17 Respiratory Depth Normal 04/29/22 16:17 Respiratory Pattern Normal 04/29/22 16:17 Blood Pressure 127/71 04/29/22 14:16 Blood Pressure Mean 84 04/29/22 14:16 Blood Pressure Position Sitting 04/29/22 12:34 Pulse Oximetry 95 04/29/22 14:20 Oxygen Delivery Method Room Air 04/29/22 12:34 Oxygen Flow Rate 0 04/29/22 12:34 Pain Level 10 04/29/22 12:34 Lab/Test Results Lab/Test Results: Laboratory Tests Range/Units 04/29/22 04/29/22 04/29/22 13:25 13:25 13:25 WBC (4.4-10.8) 10^3/uL 9.06 RBC (4.36-5.78) 10^6/uL 3.65 L Hgb (13.5-17.5) g/dL 11.2 L Hct (40.0-50.0) % 33.4 L MCV (80-95) fL 92 MCH (27.0-33.0) pg 30.7 MCHC (32.0-36.0) % 33.5 RDW (11.8-14.1) % 11.5 L Plt Count (130-400) 10^3/uL 269 MPV (8.0-11.0) fL 10.5 Immature Gran % 0.4 Neutrophils % 54.3 Lymphocytes % 29.9 Monocytes % 11.0 Eosinophils % 3.8 Basophils % 0.6 Nucleated RBC % (0.0-0.3) % 0.0 Absolute Neutrophils (1.2-6.7) 10^3/uL 4.92 Absolute Lymphocytes (1.2-3.4) 10^3/uL 2.71 Absolute Monocytes (0.1-0.8) 10^3/uL 1.00 H Absolute Eosinophils (0.0-0.7) 10^3/uL 0.34 Absolute Basophils (0.0-0.2) 10^3/uL 0.05 D-Dimer (<500) ng/mlFEU 392 Sodium (136-145) mmol/L 143 Potassium (3.5-5.1) mmol/L 3.3 L Chloride (98-107) mmol/L 103 Carbon Dioxide (21.0-32.0) mmol/L 34.2 H Anion Gap (3-11) mmol/L 5.8 BUN (7-18) mg/dL 18 Creatinine (0.70-1.30) mg/dL 1.4 H Est GFR (CKD-EPI 2020) (mL/min/1.73m2) 70.21 Glucose (74-106) mg/dL 109 H Calcium (8.5-10.1) mg/dL 9.2 Magnesium (1.8-2.4) mg/dL 1.6 L Total Bilirubin (0.2-1.0) mg/dL 0.3 AST (15-37) U/L 19 ALT (16-63) U/L 31 Alkaline Phosphatase (46-116) U/L 92 Troponin I (<or=60) ng/L < 50 Total Protein (6.4-8.2) g/dL 7.4 Albumin (3.4-5.0) g/dL 3.4 TSH (0.36-3.74) uIU/mL 2.25 Urine Color (Yellow) Urine Clarity (Clear) Urine pH (5-8) Ur Specific [place] (1.005-1.025) Urine Protein (Negative) mg/dL Urine Ketones (Negative) mg/dL Urine Blood (Negative) Urine Nitrite (Negative) Urine Bilirubin (Negative) Urine Urobilinogen (Up TO 0.2) EU/dL Ur Leukocyte Esterase (Negative) Urine Glucose (Negative) mg/dL Range/Units 04/29/22 04/29/22 16:12 16:20 WBC (4.4-10.8) 10^3/uL RBC (4.36-5.78) 10^6/uL Hgb (13.5-17.5) g/dL Hct (40.0-50.0) % MCV (80-95) fL MCH (27.0-33.0) pg MCHC (32.0-36.0) % RDW (11.8-14.1) % Plt Count (130-400) 10^3/uL MPV (8.0-11.0) fL Immature Gran % Neutrophils % Lymphocytes % Monocytes % Eosinophils % Basophils % Nucleated RBC % (0.0-0.3) % Absolute Neutrophils (1.2-6.7) 10^3/uL Absolute Lymphocytes (1.2-3.4) 10^3/uL Absolute Monocytes (0.1-0.8) 10^3/uL Absolute Eosinophils (0.0-0.7) 10^3/uL Absolute Basophils (0.0-0.2) 10^3/uL D-Dimer (<500) ng/mlFEU Sodium (136-145) mmol/L Potassium (3.5-5.1) mmol/L Chloride (98-107) mmol/L Carbon Dioxide (21.0-32.0) mmol/L Anion Gap (3-11) mmol/L BUN (7-18) mg/dL Creatinine (0.70-1.30) mg/dL Est GFR (CKD-EPI 2020) (mL/min/1.73m2) Glucose (74-106) mg/dL Calcium (8.5-10.1) mg/dL Magnesium (1.8-2.4) mg/dL Total Bilirubin (0.2-1.0) mg/dL AST (15-37) U/L ALT (16-63) U/L Alkaline Phosphatase (46-116) U/L Troponin I (<or=60) ng/L < 50 Total Protein (6.4-8.2) g/dL Albumin (3.4-5.0) g/dL TSH (0.36-3.74) uIU/mL Urine Color (Yellow) Straw Urine Clarity (Clear) Clear Urine pH (5-8) 7.5 Ur Specific [place] (1.005-1.025) 1.020 Urine Protein (Negative) mg/dL Negative Urine Ketones (Negative) mg/dL Negative Urine Blood (Negative) Negative Urine Nitrite (Negative) Negative Urine Bilirubin (Negative) Negative Urine Urobilinogen (Up TO 0.2) EU/dL 0.2 Ur Leukocyte Esterase (Negative) Negative Urine Glucose (Negative) mg/dL Negative Sign Out Sign Out Data: Sign Out Comment: Pt signed out to Dr. Crabtree at shift change with IVF, reassessment pending. Last updated by Liseth Bundy MD at 04/29/22 17:45
--- NOTE | 2022-04-29 18:39 | W.EDPROG ---
Date of service: 04/29/22 Time of Service: 18:39 Medical Decision Making pt signed out to me pending evaluation after 2nd liter done of iv fluids. He has about 100cc left and feels well, no abdominal tenderness and tolerating po with vomiting. He is stable for d/c, advised to f/u with his pcp, return precautions given Sign Out Sign Out Data: Sign Out Comment: Pt signed out to Dr. Crabtree at shift change with IVF, reassessment pending. Last updated by Liseth Bundy MD at 04/29/22 17:45 Discharge Plan Disposition Patient Disposition: HOME Condition: Stable Discharge Details Clinical Impression: Hypomagnesemia Primary Care Provider: Brendon Vivar ED Provider: Ricardo Crabtree Home Meds and New Rx's Prescriptions: Continued buspirone 10 mg tablet 20 mg PO TID Qty: 180 11RF cyclobenzaprine 10 mg tablet 10 mg PO BID Qty: 180 3RF gabapentin 600 mg tablet 600 mg PO TID Qty: 270 3RF trazodone 100 mg tablet 100 mg PO HS Qty: 90 3RF lorazepam [Ativan] 1 mg tablet 1 mg PO TID PRN (Reason: anxiety) Qty: 42 0RF methadone 10 mg/5 mL solution 110 mg PO QAM penicillin V potassium 500 mg tablet 500 mg PO QID 7 Days Qty: 28 0RF calcitriol 0.25 mcg capsule 0.25 mcg PO DAILY Qty: 14 0RF magnesium gluconate 27 mg magnesium (500 mg) tablet 27 mg PO BID Qty: 10 0RF sennosides [senna] 8.6 mg tablet 1 tab PO DAILY Label Comments: TAKE TWO TABLETS BY MOUTH AT BEDTIME docusate sodium [Colace] 100 mg capsule 100 mg PO DAILY Qty: 60 0RF calcium carbonate [Tums] 200 mg calcium (500 mg) Tablet,Chewable 5,000 mg PO DIRECTED Discharge Instructions Instructions: Hypomagnesemia (ED) Additional Instructions: follow up with your primary care provider within 1 week if you feel more ill, have severe pain or persistent vomiting return to the emergency department
[2022-04-30 17:05] LABS: Osmolality, Urine 259 mOsm/kg (150-1150)
== END 2022-04-29 19:05 | disposition home or self-care (01) ==
PROVIDERS: Student in an Organized Health Care Education/Training Program; Emergency Provider Emergency Medicine; PCP Family Medicine
DX: E83.42 Hypomagnesemia (principal); E78.5 Hyperlipidemia, unspecified
CPT/HCPCS: 36416; 80053; 82962; 83935; 93005; 96361; 96365; 96375; 99284; 81003; 83735; 84443; 84484; 85025; 85379; 93010; J2060; J3475

== ENCOUNTER 2022-04-29 19:29 | Emergency (ER) | payer MEDICAID, SELFPAY ==
[2022-04-29 19:33] VITALS: BP 142/81; PULSE 84; RESP 16; TEMP 37; O2SAT 98
--- NOTE | 2022-04-29 19:45 | DI.CT_ITS ---
Exam(s) CT ABDOMEN PELVIS W EXAM: CT ABDOMEN PELVIS W CLINICAL HISTORY: abdominal pain. TECHNIQUE: Imaging Protocol: Axial computed tomography images with coronal and sagittal reformatted images were created and reviewed CONTRAST MATERIAL: Intravenous: Omnipaque 100cc Oral: None COMPARISON: CT CT ABDOMEN PELVIS W from 03/06/2022 FINDINGS: VISUALIZED LUNG BASES: No nodules nor pleural effusions evident. ABDOMEN: There is no ascites. LIVER: There are no focal hepatic lesions evident. Minimally dilated ducts are again noted in the le ft hepatic lobe. GALLBLADDER/BILIARY: No obvious gallbladder pathology. CBD diameter is upper normal. PANCREAS: No evidence of pancreatic mass nor dilatation of the pancreatic duct. SPLEEN: Spleen is not enlarged. Small calcified splenic granulomas noted. No significant intrasplen ic lesions. Splenic and portal veins are patent. ADRENALS: There are no significant adrenal masses. KIDNEYS:No cysts evident. No solid renal masses. No calculi nor hydronephrosis.. ABDOMINAL AORTA: Abdominal aorta is not enlarged. LYMPH NODES:There is no retroperitoneal nor paraaortic adenopathy. ABDOMINAL WALL: No evidence of significant anterior abdominal wall nor inguinal hernia. GI: Abundant fecal material in the colon but no distinct transition point. There is no significant s igmoid diverticular disease. PELVIS: GI: No evidence of appendicitis.No evidence of sigmoid diverticulitis. LYMPH NODES: There is no intrapelvic nor inguinal adenopathy. REPRODUCTIVE: Prostate not enlarged URINARY BLADDER: No calculi nor obvious masses evident OSSEOUS: No significant osseous lesions. IMPRESSION: 1. No significant acute findings in the abdomen pelvis. 2. Abundant fecal material is noted in the colon no bowel obstruction. 3. No ascites. RADIATION DOSE DELIVERED: 1,246.18mGy.cm Total DLP DATA REPOSITORY: All CT scans at this facility are submitted to the National Radiology Data Registry (NRDR) Dose Index Registry (DIR) with the [employer] (A[employer]). RADIATION OPTIMIZATION: All CT scans at this facility use at least one of these dose optimization te chniques: automated exposure control; mA and/or kV adjustment per patient size (includes targeted exa ms where dose is matched to clinical indication); or iterative reconstruction.
--- NOTE | 2022-04-29 19:51 | ED.GENADUL_ITS ---
Discharge Plan Disposition Patient Disposition: HOME Condition: Stable Discharge Details Clinical Impression: Abdominal pain Primary Care Provider: Brendon Vivar ED Provider: Ricardo Crabtree Home Meds and New Rx's Prescriptions: Continued buspirone 10 mg tablet 20 mg PO TID Qty: 180 11RF cyclobenzaprine 10 mg tablet 10 mg PO BID Qty: 180 3RF gabapentin 600 mg tablet 600 mg PO TID Qty: 270 3RF trazodone 100 mg tablet 100 mg PO HS Qty: 90 3RF lorazepam [Ativan] 1 mg tablet 1 mg PO TID PRN (Reason: anxiety) Qty: 42 0RF methadone 10 mg/5 mL solution 110 mg PO QAM penicillin V potassium 500 mg tablet 500 mg PO QID 7 Days Qty: 28 0RF calcitriol 0.25 mcg capsule 0.25 mcg PO DAILY Qty: 14 0RF magnesium gluconate 27 mg magnesium (500 mg) tablet 27 mg PO BID Qty: 10 0RF sennosides [senna] 8.6 mg tablet 1 tab PO DAILY Label Comments: TAKE TWO TABLETS BY MOUTH AT BEDTIME docusate sodium [Colace] 100 mg capsule 100 mg PO DAILY Qty: 60 0RF calcium carbonate [Tums] 200 mg calcium (500 mg) Tablet,Chewable 5,000 mg PO DIRECTED Discharge Instructions Instructions: Abdominal Pain (ED) Additional Instructions: your blood work and cat scan did not show concerning findings follow up with your primary care provider within 1 week if you feel more ill, have severe worsening pain or persistent vomiting return to the emergency department Medical Decision Making 26 yo male who in the past year had a parathyoidectomy and has multiple endocrine neoplasia, who has had months of complaints of dizziness, fatigue, abdominal pain, who comes in with abodminal pain. Seen earlier today and had reassuring electrolytes other than mag of 1.4, was repleted and discharged. He states he continues to feel fatigued and has abdominal pain now is his primary complaint. He states he has had the pain for months, has had ct and u/s showing no acute findings, had mild dilation of his biliary tree on ct and u/s in february. He states he is sick of dealing with this on initial history and physical and is anxious on exam. He is tearful. He is caox4, has normal gait, no focal motor or sensation deficits. Also notes a headache that he gets frequently, slowly started worsening earlier today and not the worst of his life. He has no cranial nerve deficits, no meningismus, normal lung and heart sounds, soft abdomen though he is stating it hurts just above the umbilicus, no palpable or visible deformities. Discussed with him and he would like to pursue a repeat ct abdomen/pelvis after discussing risks/benefits. Will also obtain lipase, given he had cmp, two troponins and cbc earlier and ua that were unremarkable do not feel repeat lab testing for these indicated. HEadcahe is not the worst of his life and not thunderclap so do not feel ct head indicated, no findings on history or physical to suggest hemorrhage or innersole maker infection. I do feel some of his symptoms could be due to stress and anxiety, no si/hi, will treat with ativan and reassess. ct shows no acute findings, ?ileus, lipase and cmp unremarkable. He feels better after ativan, has no abdominal tenderness now. Suspect partially anxiety related. He is stable for d/c, advised to f/u with his pcp, return precautions given Differential Diagnosis Differential Diagnosis: gastritis, pancreatitis, anxiety, Medical Records Medical records reviewed: Yes I reviewed the patient's medical records. Imaging Data Radiologic Study: Attestation: I personally reviewed and interpreted this imaging study as follows: Imaging: CT Scan Radiologist's impression: IMPRESSION: 1. No acute process within the abdomen or pelvis identified. 2. Increased moderate to large amount of stool throughout the colon as well as findings suggesting mild small bowel ileus, as described above. 3. The prior mild biliary ductal dilatation is improved, as described above. Lab Data Lab results reviewed: Yes I reviewed the patient's lab results. HPI General Mode of arrival: ambulatory . Date/Time Provider Initiated Documentation: 04/29/22 19:29 . Limitations to Documentation: no limitations . Information obtained by: patient . History of Present Illness 26 year old M presents to the emergency department with the chief complaint of abdominal pain, described as moderate, Patient started experiencing this month(s) (3) and it has been constant. No relieving factors improve symptom(s), No exacerbating factors reported . Patient did receive the following treatments prior to arrival, none Related Data Home Medications Medication Instructions Recorded Confirmed methadone 10 mg/5 mL oral solution 110 mg PO QAM 11/16/21 04/29/22 sennosides 8.6 mg tablet (senna) 1 tab PO DAILY 12/20/21 04/29/22 docusate sodium 100 mg capsule 100 mg PO DAILY #60 caps 03/13/22 04/29/22 (Colace) penicillin V potassium 500 mg 500 mg PO QID 7 days #28 tabs 03/25/22 04/29/22 tablet calcitriol 0.25 mcg capsule 0.25 mcg PO DAILY #14 caps 03/28/22 04/29/22 magnesium gluconate 27 mg 27 mg PO BID #10 tabs 03/28/22 04/29/22 magnesium (500 mg) tablet calcium carbonate 200 mg calcium 5,000 mg PO DIRECTED 04/16/22 04/29/22 (500 mg) chewable tablet (Tums) buspirone 10 mg tablet 20 mg PO TID #180 tabs 04/19/22 04/29/22 cyclobenzaprine 10 mg tablet 10 mg PO BID #180 tabs 04/19/22 04/29/22 gabapentin 600 mg tablet 600 mg PO TID #270 tabs 04/19/22 04/29/22 lorazepam 1 mg tablet (Ativan) 1 mg PO TID PRN anxiety #42 tabs 04/19/22 04/29/22 trazodone 100 mg tablet 100 mg PO HS #90 tabs 04/19/22 04/29/22 Previous Rx's Medication Instructions Recorded docusate sodium 100 mg capsule 100 mg PO DAILY #60 caps 03/13/22 (Colace) penicillin V potassium 500 mg 500 mg PO QID 7 days #28 tabs 03/25/22 tablet calcitriol 0.25 mcg capsule 0.25 mcg PO DAILY #14 caps 03/28/22 magnesium gluconate 27 mg 27 mg PO BID #10 tabs 03/28/22 magnesium (500 mg) tablet buspirone 10 mg tablet 20 mg PO TID #180 tabs 04/19/22 cyclobenzaprine 10 mg tablet 10 mg PO BID #180 tabs 04/19/22 gabapentin 600 mg tablet 600 mg PO TID #270 tabs 04/19/22 lorazepam 1 mg tablet (Ativan) 1 mg PO TID PRN anxiety #42 tabs 04/19/22 trazodone 100 mg tablet 100 mg PO HS #90 tabs 04/19/22 Allergies Allergy/AdvReac Type Severity Reaction Status Date / Time codeine Allergy Intermediate Verified 04/29/22 19:39 General Stated Complaint: GenMedical ADRIANA: 3 Review of Systems All systems reviewed & are unremarkable except as noted in HPI and below Constitutional Constitutional: Denies chills and Denies fever(s) Cardiovascular Cardiovascular: Denies dyspnea Respiratory Respiratory: Denies cough and Denies dyspnea Gastrointestinal Gastrointestinal: Denies nausea and Denies vomiting Integumentary/Breasts Skin/Breast: Denies rash PFSH All Active Problems (Updated 04/29/22 @ 21:27 by Ricardo Crabtree MD) Viral syndrome (Acute) Vomiting (Acute) Abdominal pain (Acute) Chest wall pain (Acute) Chronic chest pain (Acute) Acute thoracic myofascial strain (Acute) Anemia (Chronic) Fatigue (Acute) Hypocalcemia (Acute) Hypomagnesemia (Acute) Cramping of hands (Acute) Hypomagnesemia (Acute) Hypocalcemia (Acute) Muscle cramping (Acute) Hypocalcemia (Acute) Hypomagnesemia (Acute) Pain, dental (Acute) Hypomagnesemia (Acute) Depression (Chronic) Suicidal ideation (Acute) Elevated parathyroid hormone (Acute) Family history of coronary arteriosclerosis (Chronic) Father of MO at 50, mother had MO at 42 Severe anxiety with panic (Acute) Hypercalcemia (Acute) Cellulitis (Acute) Medical History (Updated 04/29/22 @ 21:27 by Ricardo Crabtree MD) Anxiety Depression Family history of multiple endocrine neoplasia, type 1 Hyperlipidemia Hypocalcemia PTSD (post-traumatic stress disorder) Surgical History (Updated 04/28/22 @ 00:06 by HAMMAD WILEY) H/O parathyroidectomy Family History Mother Anxiety Asthma Depression Sister Anxiety Depression Father Cancer lung & stomach Depression Diabetes Hypertension MEN 1 (multiple endocrine neoplasia) Social History Smoking/Tobacco Use Status: Never Smoking risk assessment performed?: Yes Alcohol Intake: never Drug 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 Adopted: No Caregiver/Support person: No Foster care: No Household members: none Housing: house Number of Children: 0 Communication Needs: None Education Level: high school Do you need help understanding health information?: Never 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 and animals: Yes (Ally) Pets and animals: dog(s) Sexually active: No Do you think of yourself as: straight/heterosexual Current gender identity: male What is your relationship status?: How often do you talk on the phone with friends or family?: twice per week How often do you get together with friends or relatives?: never Do you belong to any clubs or organized social groups?: no Panel score (0-1 are the most socially isolated patients): 0 What type of physical activity do you participate in: walking Duration: 15-30 minutes/day Frequency: 5-6 times per week Maryam/Mandaeism: Anabaptist Special maryam needs: No Seatbelt use: always Helmet use: Yes Helmet use: always Drive 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 flatbed company 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 Exam Const General: no acute distress and anxious Orientation: alert HENMT Head: normal to inspection Ears: external ears normal General nose exam: external nose normal Mouth: moist mucous membranes Eyes General: appearance normal, both eyes and all related structures Neck Neck: normal visual inspection Resp Effort & Inspection: normal respiratory effort and able to speak in complete sentences Cardio Rate: regular rate GI Palpation: soft Skin General skin exam: no rashes or lesions noted Neuro General: patient alert and patient oriented x3 Extrem General: normal to inspection Psych Mental Status: mental status grossly normal Course Vital Signs Vital signs: Vital Signs Temperature 37.0 C 04/29/22 19:33 Pulse 84 04/29/22 19:33 Respiratory Rate 16 04/29/22 19:33 Blood Pressure 142/81 H 04/29/22 19:33 Pulse Oximetry 98 04/29/22 19:33 Temperature 37.0 C 04/29/22 19:33 Temperature Source Temporal Artery Scan 04/29/22 19:33 Pulse 84 04/29/22 19:33 Respiratory Rate 16 04/29/22 19:33 Respiratory Effort 04/29/22 19:33 Blood Pressure 142/81 H 04/29/22 19:33 Blood Pressure Position Sitting 04/29/22 19:33 Pulse Oximetry 98 04/29/22 19:33 Oxygen Delivery Method Room Air 04/29/22 19:33 Oxygen Flow Rate 0 04/29/22 19:33 Pain Level 7 04/29/22 19:33
[2022-04-29] MEDS: LORazepam 2 MG/ML VIAL 1 MG IVP (20:10)
[2022-04-29] MEDS: Normal Saline Flush 10 ML SYR IVP ×2 (20:19→20:39)
[2022-04-29 20:30] LABS: Lipase 48 U/L (73-393)
[2022-04-29] MEDS: Omnipaque 350 MG/ML 100 ML BTL IJ (20:33)
[2022-04-29 20:36] LABS: ALT 27 U/L (16-63); AST 19 U/L (15-37); Albumin 3.1 g/dL (3.4-5.0); Alkaline Phosphatase 87 U/L (46-116); Anion Gap 4.9 mmol/L (3-11); BUN 15 mg/dL (7-18); Bilirubin, Total 0.3 mg/dL (0.2-1.0); CO2 32.1 mmol/L (21.0-32.0); CREATININE 1.3 mg/dL (0.70-1.30); Calcium 8.3 mg/dL (8.5-10.1); Chloride 104 mmol/L (98-107); Estimated GFR 76.74 (mL/min/1.73m2); Glucose 97 mg/dL (74-106); Potassium 3.7 mmol/L (3.5-5.1); Sodium 141 mmol/L (136-145); Total Protein 6.8 g/dL (6.4-8.2)
[2022-04-29] MEDS: Normal Saline - Diluent 50 ML VIAL IJ (20:38)
--- NOTE | 2022-04-29 21:19 | DI.VRAD_ITS ---
PROCEDURE INFORMATION: Exam: CT Abdomen And Pelvis With Contrast Exam date and time: 04/29/2022 8:37 PM Age: 26 years old Clinical indication: Patient HX: Epigastric pain, frequent urination with pain, abdominal pain TECHNIQUE: Imaging protocol: Computed tomography of the abdomen and pelvis with contrast. Radiation optimization: All CT scans at this facility use at least one of these dose optimization techniques: automated exposure control; mA and/or kV adjustment per patient size (includes targeted exams where dose is matched to clinical indication); or iterative reconstruction. Contrast material: OMNIPAQUE 350; Contrast volume: 100 ml; Contrast route: INTRAVENOUS (IV); COMPARISON: CT ABDOMEN PELVIS W 03/06/2022 4:32 PM FINDINGS: Liver: Normal. No mass. Gallbladder and bile ducts: The gallbladder appears unremarkable. The prior mild biliary ductal dilatation is improved, with the common bile duct now measuring up to 8 mm diameter. There is no evidence for distal CBD stone or lesion. Pancreas: The pancreas is moderately atrophic but appears otherwise unremarkable without focal lesion or evidence of acute inflammation. Spleen: The spleen demonstrates punctate calcifications, consistent with remote granulomatous organism exposure. Adrenal glands: Normal. No mass. Kidneys and ureters: No renal or ureteral stones are identified. There is no hydronephrosis or hydroureter. There are multiple subcentimeter low-dense renal lesions which are too small to characterize but likely represent benign cysts. Stomach and bowel: There is overall mild increase in moderate to large amount of stool throughout the colon. Again noted are multiple prominent nondilated air and fluid-filled small bowel loops without transition point, mildly increased from prior study, suggesting ileus. There is no evidence for acute bowel inflammation. Appendix: The appendix is visualized and appears normal. Intraperitoneal space: There is no free intraperitoneal air. There is no evidence of free intraperitoneal fluid. Vasculature: Unremarkable. No abdominal aortic aneurysm. Lymph nodes: Unremarkable. No enlarged lymph nodes. Urinary bladder: No bladder stones are identified. Reproductive: Unremarkable as visualized. Bones/joints: Unremarkable. No acute fracture. Soft tissues: Unremarkable. IMPRESSION: 1. No acute process within the abdomen or pelvis identified. 2. Increased moderate to large amount of stool throughout the colon as well as findings suggesting mild small bowel ileus, as described above. 3. The prior mild biliary ductal dilatation is improved, as described above. Dictated and Authenticated by: Pedro Wetzel MD. Ordering:SHEMAR Silva MD
[2022-04-29 21:46] VITALS: BP 110/67; PULSE 67; RESP 17; TEMP 36.6; O2SAT 95
== END 2022-04-29 21:45 | disposition home or self-care (01) ==
PROVIDERS: Emergency Provider Emergency Medicine; PCP Family Medicine
DX: R10.9 Unspecified abdominal pain (principal); R42 Dizziness and giddiness; R53.83 Other fatigue; R51.9 Headache, unspecified
CPT/HCPCS: 36415; 80053; 83690; 96374; 99285; 74177; 99284; J2060; J3490

== ENCOUNTER 2022-04-30 05:26 | Observation (INO) | payer OTHER, SELFPAY ==
[2022-04-30 05:31] VITALS: BP 155/81; PULSE 87; RESP 16; TEMP 36.8; O2SAT 98
--- NOTE | 2022-04-30 05:42 | ED.GENADUL_ITS ---
Discharge Plan Disposition Patient Disposition: STILL A PATIENT Condition: Stable Discharge Details Chief Complaint: PsychEval Clinical Impression: Depression Primary Care Provider: Brendon Vivar ED Provider: Richy Eagle Home Meds and New Rx's Prescriptions: No Action buspirone 10 mg tablet 20 mg PO TID Qty: 180 11RF cyclobenzaprine 10 mg tablet 10 mg PO BID Qty: 180 3RF gabapentin 600 mg tablet 600 mg PO TID Qty: 270 3RF trazodone 100 mg tablet 100 mg PO HS Qty: 90 3RF lorazepam [Ativan] 1 mg tablet 1 mg PO TID PRN (Reason: anxiety) Qty: 42 0RF methadone 10 mg/5 mL solution 110 mg PO QAM calcitriol 0.25 mcg capsule 0.25 mcg PO DAILY Qty: 14 0RF magnesium gluconate 27 mg magnesium (500 mg) tablet 27 mg PO BID Qty: 10 0RF sennosides [senna] 8.6 mg tablet 1 tab PO DAILY Label Comments: TAKE TWO TABLETS BY MOUTH AT BEDTIME docusate sodium [Colace] 100 mg capsule 100 mg PO DAILY Qty: 60 0RF calcium carbonate [Tums] 200 mg calcium (500 mg) Tablet,Chewable 5,000 mg PO DIRECTED Medical Decision Making This is a 26-year-old male with a past medical history significant for anxiety, high cholesterol, men type I, multiple electrolyte abnormalities with [place] [facility] [place], and multiple subsequent visits here in the emergency department for highly fluctuant electrolyte levels as well as chronic abdominal pain. He presents today for evaluation of depression. Patient was just here twice last night where he was seen and managed for his abdominal pain and electrolyte abnormalities. CT scans and laboratory work-up were stable. He was not able to get a ride home because his mother did not pick him up. He slept in room 10 during the whole night, and then this morning at around 5 AM he woke up and felt like life is no longer worth living secondary to his frustrations of not feeling that his medical health is being managed to the point that he feels well, and also that his mental health has declined secondary to what he feels is rejection and a lack of help from his mother, and the multiple stressful episodes that he has had here. He denies any specific plan on how he would end his life. He states that he just feels like he needs help and does not feel like he would be safe if he goes home. He denies any homicidal ideations. He denies any auditory or visual hallucinations. No other complaints at this time. Additionally he has not taken any of his medications for the last 2 days secondary to him not being home secondary to him not being able to find a way to get home as his mother has not been able to pick him up. Exam demonstrates a stable appearing male, however he appears emotionally at his wits with end. We will give him his home medications, additionally we will contact mental health for further discussion. Patient is requesting voluntary admission. Patient is medically stable, however I do suspect that he will have some electrolyte abnormalities that will require potential management but do not at this time inhibit the ability for him to be assessed by mental health. I have recommended to mental [facility] that if the patient does qualify for admission to a facility it be to a facility where there is a medical management component available 7:58 AM Mental health agrees on the need for voluntary admission. Patient is hemodynamically stable. Electrolytes stable. Home medications have been started. We will keep the patient here pending placement. Patient will be signed out to my colleague Dr. Lester Bundy for disposition HPI General Date/Time Provider Initiated Documentation: 04/30/22 05:27 . HPI Narrative: This is a 26-year-old male with a past medical history significant for anxiety, high cholesterol, men type I, multiple electrolyte abnormalities with [place] [facility] [place], and multiple subsequent visits here in the emergency department for highly fluctuant electrolyte levels as well as chronic abdominal pain. He presents today for evaluation of depression. Patient was just here twice last night where he was seen and managed for his abdominal pain and electrolyte abnormalities. CT scans and laboratory work-up were stable. He was not able to get a ride home because his mother did not pick him up. He slept in room 10 during the whole night, and then this morning at around 5 AM he woke up and felt like life is no longer worth living secondary to his frustrations of not feeling that his medical health is being managed to the point that he feels well, and also that his mental health has declined secondary to what he feels is rejection and a lack of help from his mother, and the multiple stressful episodes that he has had here. He denies any specific plan on how he would end his life. He states that he just feels like he needs help and does not feel like he would be safe if he goes home. He denies any homicidal ideations. He denies any auditory or visual hallucinations. No other complaints at this time. Additionally he has not taken any of his medications for the last 2 days secondary to him not being home secondary to him not being able to find a way to get home as his mother has not been able to pick him up. Related Data Home Medications Medication Instructions Recorded Confirmed methadone 10 mg/5 mL oral solution 110 mg PO QAM 11/16/21 04/30/22 sennosides 8.6 mg tablet (senna) 1 tab PO DAILY 12/20/21 04/30/22 docusate sodium 100 mg capsule 100 mg PO DAILY #60 caps 03/13/22 04/30/22 (Colace) calcitriol 0.25 mcg capsule 0.25 mcg PO DAILY #14 caps 03/28/22 04/30/22 magnesium gluconate 27 mg 27 mg PO BID #10 tabs 03/28/22 04/30/22 magnesium (500 mg) tablet calcium carbonate 200 mg calcium 5,000 mg PO DIRECTED 04/16/22 04/30/22 (500 mg) chewable tablet (Tums) buspirone 10 mg tablet 20 mg PO TID #180 tabs 04/19/22 04/30/22 cyclobenzaprine 10 mg tablet 10 mg PO BID #180 tabs 04/19/22 04/30/22 gabapentin 600 mg tablet 600 mg PO TID #270 tabs 04/19/22 04/30/22 lorazepam 1 mg tablet (Ativan) 1 mg PO TID PRN anxiety #42 tabs 04/19/22 04/30/22 trazodone 100 mg tablet 100 mg PO HS #90 tabs 04/19/22 04/30/22 Previous Rx's Medication Instructions Recorded docusate sodium 100 mg capsule 100 mg PO DAILY #60 caps 03/13/22 (Colace) calcitriol 0.25 mcg capsule 0.25 mcg PO DAILY #14 caps 03/28/22 magnesium gluconate 27 mg 27 mg PO BID #10 tabs 03/28/22 magnesium (500 mg) tablet buspirone 10 mg tablet 20 mg PO TID #180 tabs 04/19/22 cyclobenzaprine 10 mg tablet 10 mg PO BID #180 tabs 04/19/22 gabapentin 600 mg tablet 600 mg PO TID #270 tabs 04/19/22 lorazepam 1 mg tablet (Ativan) 1 mg PO TID PRN anxiety #42 tabs 04/19/22 trazodone 100 mg tablet 100 mg PO HS #90 tabs 04/19/22 Allergies Allergy/AdvReac Type Severity Reaction Status Date / Time codeine Allergy Intermediate Verified 04/30/22 05:38 General Stated Complaint: PsychEval ADRIANA: 2 Review of Systems All systems reviewed & are unremarkable except as noted in HPI and below PFSH All Active Problems (Updated 04/30/22 @ 07:59 by Richy Eagle DO) Viral syndrome (Acute) Vomiting (Acute) Abdominal pain (Acute) Depression (Chronic) Chest wall pain (Acute) Chronic chest pain (Acute) Acute thoracic myofascial strain (Acute) Anemia (Chronic) Fatigue (Acute) Hypomagnesemia (Acute) Hypocalcemia (Acute) Muscle cramping (Acute) Hypocalcemia (Acute) Hypomagnesemia (Acute) Pain, dental (Acute) Hypomagnesemia (Acute) Depression (Chronic) Suicidal ideation (Acute) Elevated parathyroid hormone (Acute) Family history of coronary arteriosclerosis (Chronic) Father of RI at 50, mother had RI at 42 Severe anxiety with panic (Acute) Hypercalcemia (Acute) Cellulitis (Acute) Medical History Anxiety Depression Family history of multiple endocrine neoplasia, type 1 Hyperlipidemia Hypocalcemia PTSD (post-traumatic stress disorder) Surgical History H/O parathyroidectomy Family History Mother Anxiety Asthma Depression Sister Anxiety Depression Father Cancer lung & stomach Depression Diabetes Hypertension MEN 1 (multiple endocrine neoplasia) Social History Smoking/Tobacco Use Status: Never Smoking risk assessment performed?: Yes Alcohol Intake: never Drug 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 Adopted: No Caregiver/Support person: No Foster care: No Household members: none Housing: house Number of Children: 0 Communication Needs: None Education Level: high school Do you need help understanding health information?: Never 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 and animals: Yes (Ally) Pets and animals: dog(s) Sexually active: No Do you think of yourself as: straight/heterosexual Current gender identity: male What is your relationship status?: How often do you talk on the phone with friends or family?: twice per week How often do you get together with friends or relatives?: never Do you belong to any clubs or organized social groups?: no Panel score (0-1 are the most socially isolated patients): 0 What type of physical activity do you participate in: walking Duration: 15-30 minutes/day Frequency: 5-6 times per week Maryam/Buddhism: Latter-Day Special maryam needs: No Seatbelt use: always Helmet use: Yes Helmet use: always Drive 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 driver sales: No Do you feel safe at home: Yes Do you feel safe in your relationship?: Yes Exam Narrative Exam Narrative: 1.Const: Well-nourished, Well-developed, appearing stated age 2.Eyes: PERRL, no conjunctival injection, and symmetrical lids. 3.ENT: Atraumatic external nose and ears. Moist MM. Neck: Symmetric, trachea midline, No thyromegaly. 4.CVS: +S1/S2, No murmurs or gallops. Peripheral pulses 2+ and equal in all extremities. Brisk capillary refill in all extremities. 5.RESP: Unlabored respiratory effort. Clear to auscultation bilaterally. No wheezes rales or rhonchi 6.GI: Soft, Nontender/Nondistended, No hepatosplenomegaly. No guarding or rebound. 7.MSK: Normocephalic/Atraumatic, Extremities w/o deformity or ttp No cyanosis or clubbing, Normal movement of all extremities 8.Skin: Warm, Dry. No rashes or lesions. 9.Neuro: exhibitions and collections manager II-XII grossly intact. Sensation grossly intact, no focal neurologic deficits. 10.Psych: (AAO) x3. Appropriate mood and affect Course Vital Signs Vital signs: Vital Signs Temperature 36.8 C 04/30/22 05:31 Pulse 16 L 04/30/22 05:31 Respiratory Rate 87 H 04/30/22 05:31 Blood Pressure 155/81 H 04/30/22 05:31 Pulse Oximetry 98 04/30/22 05:31 Temperature 36.8 C 04/30/22 05:31 Temperature Source Temporal Artery Scan 04/30/22 05:31 Pulse 16 L 04/30/22 05:31 Respiratory Rate 87 H 04/30/22 05:31 Respiratory Effort 04/30/22 05:31 Blood Pressure 155/81 H 04/30/22 05:31 Blood Pressure Position Sitting 04/30/22 05:31 Pulse Oximetry 98 04/30/22 05:31 Oxygen Delivery Method Room Air 04/30/22 05:31 Oxygen Flow Rate 0 04/30/22 05:31 Pain Level 5 04/30/22 05:31 Comment 04/30/22 05:31
[2022-04-30 06:12] LABS: Abs Immature Grans 0.02 10^3/uL (0.0-0.06); Absolute Basophil Count 0.05 10^3/uL (0.0-0.2); Absolute Eosinophil Count 0.26 10^3/uL (0.0-0.7); Absolute Lymphocyte Count 2.63 10^3/uL (1.2-3.4); Absolute Monocyte Count 0.77 10^3/uL (0.1-0.8); Basophils % 0.6; Eosinophils % 3.2; HCT 37.5 % (40.0-50.0); HGB 12.2 g/dL (13.5-17.5); Immature Grans % 0.2; MCH 30.5 pg (27.0-33.0); MCHC 32.5 % (32.0-36.0); MCV 94 fL (80-95); MPV 10.6 fL (8.0-11.0); Monocytes % 9.4; Neutrophils % 54.6; Platelet Count 308 10^3/uL (130-400); RDW 11.8 % (11.8-14.1); RDW-SD 40.5 fL; WBC 8.23 10^3/uL (4.4-10.8)
[2022-04-30 06:29] LABS: ALT 34 U/L (16-63); AST 17 U/L (15-37); Albumin 3.7 g/dL (3.4-5.0); Alkaline Phosphatase 102 U/L (46-116); Anion Gap 6.6 mmol/L (3-11); BUN 16 mg/dL (7-18); Bilirubin, Total 0.2 mg/dL (0.2-1.0); CO2 32.4 mmol/L (21.0-32.0); CREATININE 1.3 mg/dL (0.70-1.30); Calcium 8.6 mg/dL (8.5-10.1); Chloride 100 mmol/L (98-107); Estimated GFR 76.74 (mL/min/1.73m2); Glucose 98 mg/dL (74-106); Magnesium 1.7 mg/dL (1.8-2.4); Potassium 3.7 mmol/L (3.5-5.1); Sodium 139 mmol/L (136-145); Total Protein 8.1 g/dL (6.4-8.2)
[2022-04-30 06:31] LABS: *AMPHETAMINES SCREEN URINE Negative (Negative); *BARBITURATES SCREEN URINE Negative (Negative); *BENZODIAZEPINES SCREEN URINE Negative (Negative); Cannabinoids THC Negative (Negative); Cocaine Screen,Urine Negative (Negative); METHADONE URINE SCREEN Positive (Negative); OPIATES URINE SCREEN Negative (Negative)
[2022-04-30 06:32] LABS: Tricyclic Antidepressants Negative (Negative)
[2022-04-30 06:32] LABS: ETHANOL BLOOD < 3.0 mg/dL (<10); TSH (W/Ref FT4) 2.77 uIU/mL (0.36-3.74)
[2022-04-30 06:35] LABS: Salicylate < 2.8 mg/dL (<2.8)
[2022-04-30 06:36] LABS: Acetaminophen < 2 ug/mL (10-30)
[2022-04-30] MEDS: Acetaminophen 500 MG TAB 1000 MG PO (06:38)
--- NOTE | 2022-04-30 08:07 | NUR.NOTE ---
Nursing Note: refferal to cm forn pcp follow up
[2022-04-30] MEDS: busPIRone 5 MG TAB 10 MG PO (08:37)
[2022-04-30] MEDS: Calcitriol 0.25 MCG CAP PO (08:38)
[2022-04-30] MEDS: Calcium Carbonate *TUMS* 500 MG CHEW 2000 MG PO (08:38)
[2022-04-30] MEDS: Docusate Sodium 100 MG CAP PO (08:39)
[2022-04-30] MEDS: Gabapentin 600 MG TAB PO (08:39)
[2022-04-30] MEDS: Cyclobenzaprine 10 MG TAB PO (08:39)
[2022-04-30] MEDS: Methadone Liquid 10 MG/ML 110 MG PO (08:40)
[2022-04-30] MEDS: Magnesium Gluconate 500 MG TAB 250 MG PO (08:40)
--- NOTE | 2022-04-30 09:05 | PDOC.MHCN_ITS ---
Date of service: 04/30/22 Time of Service: 06:15 PHQ-9 Over the last 2 weeks, how often have you been bothered by any of the following problems? 1. Little interest or pleasure in doing things: nearly every day 2. Feeling down, depressed, or hopeless: nearly every day 3. Trouble falling or staying asleep, or sleeping too much: nearly every day 4. Feeling tired or having little energy: nearly every day 5. Poor appetite or overeating: nearly every day 6. Feeling bad about yourself - or that you are a failure or have let yourself and your family down: more than half the days 7. Trouble concentrating on things, such as reading the newspaper or watching television: not at all 8. Moving or speaking so slowly that other people could have noticed? - Or the opposite - being so fidgety or restless that you have been moving around a lot more than usual: more than half the days 9. Thoughts that you would be better off or of hurting yourself in some way: nearly every day Total score: 22 If you checked off any problems, how difficult have these problems made it for you to do your work, take care of things at home, or get along with other people?: extremely difficult Source: Developed by Drs. Santiago Olivares, Yany Walker, Allan Guzman and colleagues, with an educational lauren from [employer]. Suicide Severity Rate CSSRS Have you wished you were or wished you could go to sleep and not wake up?: Yes Have you actually had any thoughts of killing yourself?: Yes CSSRS2 Have you been thinking about how you might do this?: Yes Have you had these thoughts and had some intention of acting on them?: No Have you started to work out or worked out the details of how to kill yourself? Do you intend to carry out this plan?: Yes CSSRS3 Have you ever done anything, started to do anything or prepared to do anything to end your life?: Yes CSSRS4 Was this within the past three months?: No Screening Score Total Score: 6 Screening: Positive Mental Health Emergency Note Release [facility] release signed:: Yes Reason for Visit Client presented to [facility] ED on 04/29/22 2x due to medical reasons. Per collateral contact with ED provider [place] client is having significant medical issues related to his thyroid and para thyroid gland and has been utilizing the ED for medical reasons almost daily sometimes up to 2x daily. Client presented 2x yesterday for medical reasons and when mother did not pick him up this morning at 4a he re-checked into the ED endorsing suicidal ideations. Client states I just can't do this anymore I have nothing to live for especially feeling like this. In the last 2 weeks has the pt presented for ES prior to today?: Yes, presented at [facility] ED (Medical reasons associated with thyroid. ) Client Information Client is: Adult Outpatient Non Suicidal Self Injury Current: No History: yes, hx of NSSI via intentional overdose on medications. Safety Risk/Harm to Self or Others Current Ideation to Harm Self or Others: Yes to self. (Client currently endorsing persistent suicidal ideations rating intent 8/10 and plan to overdose on medications. ) Intent: yes, has intent. Plan: yes,has a plan. History of angelika cide attempt: yes,history of suicide attempt reported. Details of previous suicide attempt: intentional overdose of medications. Risk: Does risk to harm exist?: yes. Access to means: No. Risk: Moderate Risk Asssessment/Mental Status Appearance: Disheveled Attitude: Guarded Behavior: Unremarkable Speech: Normal Affect: Flat Mood: Depressed Thought process: Unremarkable Hallucinations: No Delusions: No Attention: Poor concentration Perception: Not impaired Orientation: Fully orientated Memory: Intact Insight: Poor Judgement: Poor Neurovegetative Symptoms Sleep: Decrease (Client reports he gets on average about 3-4 hours a day) Appetitie: Decrease Interests: Decrease Energy: Decrease Libido: Decrease Substance Use: Do you use nicotine?: Yes Have you used substances in the last 7 days?: No Additional Issues: Assaultive/Threatening Behavior: No Medical Concerns: Yes Client engaged in active self harm w/weapon: No Threatening to run away: No Child reported abuse/neglect: No Voluntarily presenting for services: No Domestic violence is a concern: Yes Extreme Psychosis or extreme behavior is present: No Impression Client is a 26 y/o single male who is currently staying with family members. 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 chart review client is a . Client presents with symptoms most congruent with major depressive disorder as evidenced by self report of poor appetite, decrease in sleep and loss of interest in things that used to bring him álvaro. Clients depressive symptoms appear to be exacerbated by his current medical conditions and client self reports that he has no desire to go on living with the way he is feeling and always being sick. It should be noted that client presents with very flat affect and appears to be guarded answering questions with one word answers. Client reports that he sleeps during the day and is awake all night, however reporting that he is only averaging about 3-4 hours of sleep daily. Client has been seen by crisis at [facility] and was hospitalized voluntarily in December of 2021 at [facility]. Client is in need of inpatient treatment to explore suicidal ideations and to learn coping skills he can utilize when he completes treatment. Client also needs wrap around outpatient services once he is out of treatment. Plan/Disposition Recommended Disposition: Hospitalization ([place] [place]and [facility]) facilities contacted. Plan: Due to clients guarded behavior he will remain at [facility] ED on voluntary status. Client will be re-assessed by [facility] later in the day. Referrals will be [place]ed [place] [facility], , and , however per conversation with ED provider [facility] client would benefit from a medical bed due to address his medical concerns as well. Client will be re-assessed daily by [facility] ES until placement is secured or client can be safety planned home. Person reported agreement to plan: Yes Facilities contacted if Applicable [facility] (send referral) Not accepted, No bed available [facility] (send referral) Not accepted, No bed available [facility] (only accepting in house referrals) [facility], [facility] No bed available Reports/communication Outcome discussed with: ED/Personnel (verbal passover given to ED provider . )
[2022-04-30 09:15] VITALS: BP 115/70; PULSE 98; RESP 18; TEMP 36.9; O2SAT 96
--- NOTE | 2022-04-30 10:00 | RT.EKG_ITS ---
APPROVED REPORT Exam: Resting ECG Reason for Exam: chest pain Patient Location: E HR:98 bpm ECG Measurements Heart Rate 98 AXIS SC 176 P 47 QRSd 100 QRS 58 QT 380 T 23 QTc 486 Conclusion Sinus rhythm...normal P axis, V-rate 60- 99
[2022-04-30] MEDS: Ondansetron O.D.T. 4 MG TABEF PO (10:25)
[2022-04-30] MEDS: Famotidine 20 MG TAB PO (10:26)
--- NOTE | 2022-04-30 14:11 | CMSP_ITS ---
- If Service Date Differs Date of service: 04/30/22 Time of Service: 14:11 Care Management Safety Plan Status: Voluntary - Reason for Wait Reason for Wait: Inpatient Admission Pedro Pablo is a 26 year old young man who presented to the ED yesterday with medical issues that have been ongoing. As he was preparing for discharge he informed the staff that he did not feel safe to go home and was having suicidal thoughts. Pedro Pablo is well known to [facility] and presents regularly to the ED (43 times so far in 2021) with medical concerns and well as anxiety and depression. He has been hospitalized at least twice this year at [facility]. Pedro Pablo was screened by [facility] crisis screener this morning and was determined to meet criteria for voluntary inpatient admission. VOLUNTARY FOR INPATIENT PSYCHIATRIC STABILIZATION. Patient is appropriate in all interactions since arriving at [facility]; Pt has demonstrated appropriate coping and communication skills, has articulated his or her needs and concerns and is fully engaged during staff interactions. Safety plan has been established with patient, and care team, to adhere to patient goals, identify restrictions based on behavioral status, address nutrition, and determine allowed personal belongings, tools for hygiene and personal care. Determine level of activity including ambulation, level of supervision, visitors, and determine privileges based on behaviors and level of engagement by pt. SAFETY PLAN: 1. Will remain on suicide precautions. In Paper Clothes 2. Will remain in room under direct supervision of one-on-one staff at all times provided by [employer]; [employer], [employer]OD HE[employer]AP RUBBER real estate appraiser supervisor. 3. May have paper cups, plates, finger foods as well as a cardboard spoon with which to eat meals. 4. Follow [facility] Management of the Admitted Behavioral Health Patient policy. 5. Comfort bath system only, shower permitted with escort at RN discretion. 6. No personal belongings-soft items permitted at RN discretion. 7. Visitors-none at this time. 8. Activities: soft cart items approved per RN discretion. 9. Bathroom privileges with escort in the ED, available in room without limitation on M/S. 10. Phone: contact limited to junior paralegal at this time, via cordless phone at RN discretion. 11. Due to VOLUNTARY status, if patient wishes to leave [facility], staff will contact [facility] Crisis Screener ([phone]) and On-Call Housekeeping Aide ([phone]) as soon as possible. In the event of elopement, notify [facility] Police ([phone]). Patient is currently voluntarily at [facility] and seeking inpatient admission when a bed becomes available. [facility] Frontline Ground Intelligence Officer will continue seeking [employer]. Please contact the Assistant Clinical Nurse Manager Housekeeping Aide ([phone]) and [facility] Ground Intelligence Officer ([phone]) for any needed changes in the Safety Plan. Safety plan has been provided to interdepartmental care team.
--- NOTE | 2022-04-30 19:14 | W.EDPROG ---
Date of service: 04/30/22 Time of Service: 19:14 Medical Decision Making Patient complained of nausea and chest discomfort. EKG was obtained and reviewed and interpreted by me: Please see report, nondiagnostic, normal sinus 98 bpm. Patient had some anxiety today and requested benzodiazepine. Ativan 1 mg was administered. Patient noted to be resting comfortably. I spoke with [facility] crisis screener and I recommended given patient's underlying medical conditions that he be hospitalized at a psychiatric treatment facility that has medical services. I do think he would be best served at [facility] [place] if there is bed available as he his specialists are at [facility]. Care plan developed with care management and nursing. Patient safety observer initiated. Sign Out Sign Out Data: Sign Out Comment: Depression, follow-up on disposition by mental health and placement Last updated by Richy Eagle DO at 04/30/22 08:12 Discharge Plan Disposition Patient Disposition: STILL A PATIENT Condition: Stable Discharge Details Clinical Impression: Depression Primary Care Provider: Brendon Vivar ED Provider: Lester Bundy Home Meds and New Rx's Prescriptions: No Action buspirone 10 mg tablet 20 mg PO TID Qty: 180 11RF cyclobenzaprine 10 mg tablet 10 mg PO BID Qty: 180 3RF gabapentin 600 mg tablet 600 mg PO TID Qty: 270 3RF trazodone 100 mg tablet 100 mg PO HS Qty: 90 3RF lorazepam [Ativan] 1 mg tablet 1 mg PO TID PRN (Reason: anxiety) Qty: 42 0RF methadone 10 mg/5 mL solution 110 mg PO QAM calcitriol 0.25 mcg capsule 0.25 mcg PO DAILY Qty: 14 0RF magnesium gluconate 27 mg magnesium (500 mg) tablet 27 mg PO BID Qty: 10 0RF sennosides [senna] 8.6 mg tablet 1 tab PO DAILY Label Comments: TAKE TWO TABLETS BY MOUTH AT BEDTIME docusate sodium [Colace] 100 mg capsule 100 mg PO DAILY Qty: 60 0RF calcium carbonate [Tums] 200 mg calcium (500 mg) Tablet,Chewable 5,000 mg PO DIRECTED
[2022-05-01] MEDS: LORazepam 0.5 MG TAB PO (02:37)
[2022-05-01] MEDS: Calcium Carbonate *TUMS* 500 MG CHEW 2000 MG PO ×5 (03:10→19:26)
[2022-05-01 04:00] LABS: Anion Gap 7.1 mmol/L (3-11); BUN 19 mg/dL (7-18); CO2 32.9 mmol/L (21.0-32.0); CREATININE 1.4 mg/dL (0.70-1.30); Calcium 8.3 mg/dL (8.5-10.1); Chloride 101 mmol/L (98-107); Estimated GFR 70.21 (mL/min/1.73m2); Glucose 102 mg/dL (74-106); Potassium 3.6 mmol/L (3.5-5.1); Sodium 141 mmol/L (136-145)
[2022-05-01] MEDS: Calcium Gluconate 4.65 MEQ/10 ML VIAL 4.65 MG IVP (04:24)
[2022-05-01 04:25] LABS: Magnesium 1.4 mg/dL (1.8-2.4)
[2022-05-01] MEDS: MAGNESIUM SULFATE 4 GM/100 ML BAG IVPB (04:58)
[2022-05-01] MEDS: Normal Saline 500 ML IV (05:40)
[2022-05-01 06:37] VITALS: BP 154/79; PULSE 93; RESP 18; TEMP 36.9; O2SAT 99
[2022-05-01] MEDS: Ondansetron 4 MG/2 ML VIAL IVP (07:24)
--- NOTE | 2022-05-01 07:39 | W.EDPROG ---
Date of service: 05/01/22 Time of Service: 07:39 Medical Decision Making Patient was stable throughout the night. He did have some cramps in the watch crystal grinder. It was discussed with me by nursing staff at 7 AM that they had accidentally forgotten to give him his nighttime medications. We did get a repeat electrolyte check and his magnesium and calcium are slightly low. We will replace these with an amp of calcium gluconate, 2000 mg of Tums, and a slow drip of 4 g of magnesium over the next 4 to 6 hours. Patient will be signed out to my colleague Dr. Bundy for continued monitoring until placement is available. Sign Out Yes Sign Out Sign Out Data: Sign Out Comment: Depression, follow-up on disposition by mental health and placement Last updated by Richy Eagle DO at 04/30/22 08:12 Sign Out Comment: Follow-up with mental health regarding placement. Last updated by Lester Bundy MD at 04/30/22 19:20 Discharge Plan Disposition Patient Disposition: STILL A PATIENT Condition: Stable Discharge Details Clinical Impression: Depression Primary Care Provider: Brendon Vivar ED Provider: Richy Eagle Home Meds and New Rx's Prescriptions: No Action buspirone 10 mg tablet 20 mg PO TID Qty: 180 11RF cyclobenzaprine 10 mg tablet 10 mg PO BID Qty: 180 3RF gabapentin 600 mg tablet 600 mg PO TID Qty: 270 3RF trazodone 100 mg tablet 100 mg PO HS Qty: 90 3RF lorazepam [Ativan] 1 mg tablet 1 mg PO TID PRN (Reason: anxiety) Qty: 42 0RF methadone 10 mg/5 mL solution 110 mg PO QAM calcitriol 0.25 mcg capsule 0.25 mcg PO DAILY Qty: 14 0RF magnesium gluconate 27 mg magnesium (500 mg) tablet 27 mg PO BID Qty: 10 0RF sennosides [senna] 8.6 mg tablet 1 tab PO DAILY Label Comments: TAKE TWO TABLETS BY MOUTH AT BEDTIME docusate sodium [Colace] 100 mg capsule 100 mg PO DAILY Qty: 60 0RF calcium carbonate [Tums] 200 mg calcium (500 mg) Tablet,Chewable 5,000 mg PO DIRECTED
[2022-05-01] MEDS: Methadone Liquid 10 MG/ML 110 MG PO (08:54)
[2022-05-01] MEDS: Magnesium Gluconate 500 MG TAB 250 MG PO (08:55)
[2022-05-01] MEDS: busPIRone 5 MG TAB 10 MG PO ×3 (08:56→19:26)
[2022-05-01] MEDS: Gabapentin 600 MG TAB PO ×3 (08:56→19:28)
[2022-05-01] MEDS: Calcitriol 0.25 MCG CAP PO (08:57)
[2022-05-01] MEDS: Docusate Sodium 100 MG CAP PO (08:57)
[2022-05-01] MEDS: Cyclobenzaprine 10 MG TAB PO ×2 (08:57→19:27)
[2022-05-01 09:00] LABS: Anion Gap 6.9 mmol/L (3-11); BUN 17 mg/dL (7-18); CO2 32.1 mmol/L (21.0-32.0); CREATININE 1.3 mg/dL (0.70-1.30); Calcium 8.7 mg/dL (8.5-10.1); Chloride 102 mmol/L (98-107); Estimated GFR 76.74 (mL/min/1.73m2); Glucose 99 mg/dL (74-106); Magnesium 1.7 mg/dL (1.8-2.4); Potassium 4.1 mmol/L (3.5-5.1); Sodium 141 mmol/L (136-145)
--- NOTE | 2022-05-01 11:01 | PDOC.CMSAFED ---
- If Service Date Differs Date of service: 05/01/22 Time of Service: 11:01 Care Management Safety Plan Status: Voluntary - Reason for Wait Reason for Wait: Inpatient Admission Pedro Pablo is a 26 year old young man who presented to the ED with ongoing medical issues. As he was preparing for discharge he informed the staff that he did not feel safe to go home and was having suicidal thoughts. Pedro Pablo is well known to [facility] and presents regularly to the ED (43 times so far in 2021) with medical concerns and well as anxiety and depression. He has been hospitalized at least twice this year at [facility]. Pedro Pablo was screened by [facility] crisis screener this morning and was determined to meet criteria for voluntary inpatient admission. VOLUNTARY FOR INPATIENT PSYCHIATRIC STABILIZATION. Patient is appropriate in all interactions since arriving at [facility]; Pt has demonstrated appropriate coping and communication skills, has articulated his or her needs and concerns and is fully engaged during staff interactions. Safety plan has been established with patient, and care team, to adhere to patient goals, identify restrictions based on behavioral status, address nutrition, and determine allowed personal belongings, tools for hygiene and personal care. Determine level of activity including ambulation, level of supervision, visitors, and determine privileges based on behaviors and level of engagement by pt. VOLUNTARY SAFETY PLAN: 1. Will remain on suicide precautions. In Paper Clothes 2. Will remain in room under direct supervision of one-on-one staff at all times provided by [employer]; [employer], GLUE JOINTER FEEDER upkeep worker. 3. May have paper cups, plates, finger foods as well as a cardboard spoon with which to eat meals. 4. Follow [facility] Management of the Admitted Behavioral Health Patient policy. 5. Comfort bath system only, shower permitted with escort at RN discretion. 6. No personal belongings-soft items permitted at RN discretion. 7. Visitors-none at this time. 8. Activities: soft cart items approved per RN discretion. 9. Bathroom privileges with escort in the ED, available in room without limitation on M/S. 10. Phone: contact limited to insurance defense paralegal at this time, via cordless phone at RN discretion. 11. Due to VOLUNTARY status, if patient wishes to leave [facility], staff will contact [facility] Crisis Screener ([phone]) and On-Call Leather Cleaner ([phone]) as soon as possible. In the event of elopement, notify [facility] Police ([phone]). Patient is currently voluntarily at [facility] and seeking inpatient admission when a bed becomes available. [facility] Frontline Oncologist will continue seeking placement. Please contact the Lactation Consultant Leather Cleaner ([phone]) and [facility] Oncologist ([phone]) for any needed changes in the Safety Plan. Safety plan has been provided to interdepartmental care team.
--- NOTE | 2022-05-01 11:23 | MHPN_ITS ---
Date of service: 05/01/22 Time of Service: 11:07 Mental Health Emergency Note Release [facility] release signed:: Yes Reason for Visit Pedro Pablo is at [facility] due to his current medical conditions and suicidal ideation. In the last 2 weeks has the pt presented for ES prior to today?: Unknown Client Information Client is: Adult Outpatient Well Housed: Yes Non Suicidal Self Injury Current: No History: No Safety Risk/Harm to Self or Others Current Ideation to Harm Self or Others: Yes to self. (Pedro Pablo reports he is currently endorsing SI but reports his thoughts are due to his medical complications.) Intent: no, has no intent. Plan: no.does not have a plan. History of suicide attempt: yes,history of suicide attempt reported. Details of previous suicide attempt: Pedro Pablo previously reported to this television script writer that he has attempted suicide. Risk: Does risk to harm exist?: No Risk: N/A Duty to warn indicated: No Asssessment/Mental Status Appearance: Disheveled Attitude: Cooperative and Passive Behavior: Unremarkable Speech: Soft and Slow Affect: Flat and Cogruent with mood Mood: Sad, Stressed, Depressed and Anxious Thought process: Goal directed Hallucinations: No evidence Delusions: No evidence Attention: Unremarkable Perception: Not impaired Orientation: Fully orientated Memory: Intact Insight: Fair Judgement: Fair Neurovegetative Symptoms Sleep: Decrease (Pedro Pablo reports he slept yesterday but slept awful last night. Pedro Pablo reports he sleeps well from his medications.) Appetitie: Decrease (Pedro Pablo has not been able to eat well.) Interests: Decrease Energy: Decrease Libido: Not applicable Substance Use: Do you use nicotine?: No Have you used substances in the last 7 days?: No Additional Issues: Assaultive/Threatening Behavior: No Medical Concerns: Yes Client engaged in active self harm w/weapon: No Threatening to run away: No Child reported abuse/neglect: No Voluntarily presenting for services: Yes Domestic violence is a concern: No Extreme Psychosis or extreme behavior is present: No Impression Pedro Pablo presents as disheveled with a flat affect reporting he is not doing to well. Pedro Pablo reports fleeting thoughts of suicide with no intention or plan; but is often having thoughts of wanting to be or feeling he would rather than continue to live how he is now. Pedro Pablo reports he is unsure how he would feel if he was not experiencing these medical concerns but feels his suicidal ideation could be influenced by his medical concerns. Pedro Pablo reports he wants to leave [facility] and get to [facility] but he knows there is a process to get him to any other hospital. Pedro Pablo reports he is tired of being sick and he is perseverating on getting to [facility]. Pedro Pablo has not been eating or sleeping well and reports he still continues to feel he is a medical patient. Pedro Pablo had surgery on his thyroid one month and reports feeling this way ever since. Pedro Pablo is in need of treatment due to his suicidal ideation and per Pedro Pablo's report he feels he also needs medical attention. Please see the advising physician for medical concerns and/or documentation. Plan/Disposition Recommended Disposition: Hospitalization facilities contacted. Plan: Pedro Pablo will continue to wait at [facility] until he can be transferred to another hospital for psychiatric care in addition to his medical needs. Pedro Pablo's goal is to get to [facility] but he will be transported to the hospital that can take him first. Person reported agreement to plan: Yes Facilities contacted if Applicable [facility] Not accepted, Medical reasons [facility] Not accepted, No bed available [facility] Not accepted, ([facility] cannot accept him today, call [facility] in the morning. ) No bed available [facility] Not accepted, Only accepting in house referrals, [facility] Not accepted, Only accepting in house referrals [facility] Not accepted, Medical reasons Reports/communication Outcome discussed with: ED/Personnel (Dr Bundy)
[2022-05-01] MEDS: LORazepam 1 MG TAB PO ×2 (11:36→19:13)
--- NOTE | 2022-05-01 15:41 | ED.PROG_ITS ---
Date of service: 05/01/22 Time of Service: 15:45 Medical Decision Making 1535-brief signout received and patient is stable and awaiting psychiatric bed availability due to suicidal ideations. Patient in bed resting with no stated needs at my time of signout. We will continue to monitor. 2014-was contacted by house carpenter helper and stated that inpatient holding bed was available. Contacted hospitalist and discussed patient's medical history along with voluntary admission to psychiatric facility. He agreed to have patient admitted for further observation patient pending psychiatric bed availability. Did discuss with nursing staff and all of patient's daily meds were given today. Patient is only due for trazodone this evening before bed. Patient in stable condition with no other changes noted. ER admission orders were placed Sign Out No Exam Const General: cooperative, no acute distress and not ill appearing Orientation: alert, awake and oriented x3 Resp Effort & Inspection: normal respiratory effort, able to speak in complete sentences and no respiratory distress Skin General skin exam: no rashes or lesions noted Neuro General: patient alert, patient awake, patient oriented x3 and moves all extremities Sign Out Sign Out Data: Sign Out Comment: Depression, follow-up on disposition by mental health and placement Last updated by Richy Eagle DO at 04/30/22 08:12 Sign Out Comment: Follow-up with mental health regarding placement. Last updated by Lester Bundy MD at 04/30/22 19:20 Discharge Plan Disposition Patient Disposition: Admit to [facility] Condition: Stable Discharge Details Clinical Impression: Depression, Suicidal ideations Admit Date/Time: 05/01/22 20:37 Admit Provider: Uday Whitaker Attending Provider: Uday Whitaker Primary Care Provider: Brendon Vivar ED Provider: Crow Gama Discharge Data Discharge Date/Time-TO BE ENTERED AT DEPARTURE: 05/01/22 21:45
[2022-05-01 21:15] VITALS: BP 126/76; PULSE 79; RESP 18; TEMP 36.6; O2SAT 96
--- NOTE | 2022-05-01 21:25 | HPE_ITS ---
Date of service: 05/01/22 Time of Service: 21:25 Assessment and Plan Assessment and plan (1) Suicidal ideations: Start date: 05/01/22 Status: Acute Assessment and plan: This is a 26-year-old gentleman who came to the ED most recently for suicidal ideation and hopelessness. He did not have a plan. He is on multiple psychiatric medical therapy and will be placed for inpatient psychiatric care. He is medically cleared and no further lab or medical interventions are necessary at this time. He will be admitted for observation and monitoring until placement for inpatient psychiatric care. His usual medications will be continued the same. Patient is a full code. (2) Depression: Status: Chronic Assessment and plan: Continue usual outpatient medical therapy while awaiting inpatient psychiatric care. (3) Primary hyperparathyroidism: Status: Chronic Assessment and plan: Now status post parathyroidectomy for adenoma and on high-dose calcium supplementation. He also has magnesium supplement. He occasionally has increased somatic complaints when his electrolytes are abnormal but he is compliant with medical therapy. Continue oral supplement while hospitalized. (4) Hypomagnesemia: Status: Chronic Assessment and plan: Status post IV supplement in the ED during his hospitalization with continued oral supplement as needed. (5) Hypocalcemia: Status: Chronic Assessment and plan: Chronic status post parathyroidectomy and will need high-dose supplement for the near future. Compliance will help decrease his somatic complaints. (6) Chronic constipation: Status: Chronic Assessment and plan: Continue daily cathartic and as needed cathartics while hospitalized. Patient needs to consider long-term MiraLAX if this continues to be a problem on daily senna at this time. Imaging revealed an increased stool load. History of Present Illness History of Present Illness Chief Complaint: Suicidal ideation without plan Narrative: This is a 26-year-old male patient who has a past medical history of PTSD with anxiety and severe psychiatric dysfunction with frequent ER visits, up to 90 over the last year according to ED physician, for somatic complaints associated with electrolyte abnormalities status post parathyroidectomy 03/26/2022 now with hypocalcemia on high supplement. [place] [facility] He does have a history of hyperlipidemia and MEN type I. His medical therapy is mostly for psychiatric disease. In the ED he reported suicidal ideation during this visit with his usual physical complaints which are usually musculoskeletal. He said that he was feeling hopeless with his continued medical problems and suicidal though he had no plan. He was in the ED holding over the last couple of days and does have plans for inpatient psychiatric evaluation and treatment requiring supervision until that time. He will be admitted to observation with a sitter. He denies any psychotic complaints with no hallucinations but does feel that he would not be safe going home. He is medically cleared for placement for inpatient psychiatric care at this time is not requiring any further labs or IV administration. He did receive IV magnesium upon admission to the ED initially. He is a full code. Review of Systems Narrative: 13 point review of systems otherwise unrevealing or stable. Patient has minimal conversation. Patient does have chronic constipation with imaging revealing this problem. [facility], [facility] All Active Problems (Updated 05/02/22 @ 07:08 by Uday Whitaker) Chronic constipation (Chronic) Primary hyperparathyroidism (Chronic) Viral syndrome (Acute) Vomiting (Acute) Abdominal pain (Acute) Depression (Chronic) Suicidal ideations (Acute) Chest wall pain (Acute) Chronic chest pain (Acute) Acute thoracic myofascial strain (Acute) Anemia (Chronic) Fatigue (Acute) Hypocalcemia (Chronic) Hypomagnesemia (Chronic) Pain, dental (Acute) Hypomagnesemia (Acute) Depression (Chronic) Suicidal ideation (Acute) Elevated parathyroid hormone (Acute) Family history of coronary arteriosclerosis (Chronic) Father of MS at 50, mother had MS at 42 Severe anxiety with panic (Acute) Hypercalcemia (Acute) Cellulitis (Acute) Medical History Anxiety Depression Family history of multiple endocrine neoplasia, type 1 Hyperlipidemia Hypocalcemia PTSD (post-traumatic stress disorder) Surgical History H/O parathyroidectomy Family History Mother Anxiety Asthma Depression Sister Anxiety Depression Father Cancer lung & stomach Depression Diabetes Hypertension MEN 1 (multiple endocrine neoplasia) Social History Smoking/Tobacco Use Status: Never Smoking risk assessment performed?: Yes Alcohol Intake: never Drug 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 Adopted: No Caregiver/Support person: No Foster care: No Household members: none Housing: house Number of Children: 0 Communication Needs: None Education Level: high school Do you need help understanding health information?: Never 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 and animals: Yes (Ally) Pets and animals: dog(s) Sexually active: No Do you think of yourself as: straight/heterosexual Current gender identity: male What is your relationship status?: How often do you talk on the phone with friends or family?: twice per week How often do you get together with friends or relatives?: never Do you belong to any clubs or organized social groups?: no Panel score (0-1 are the most socially isolated patients): 0 What type of physical activity do you participate in: walking Duration: 15-30 minutes/day Frequency: 5-6 times per week Maryam/Mormon: Catholic Special maryam needs: No Seatbelt use: always Helmet use: Yes Helmet use: always Drive 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 hazardous materials 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 Meds Allergies and Home Medications Allergies Allergy/AdvReac Type Severity Reaction Status Date / Time codeine Allergy Intermediate Verified 04/30/22 05:38 Home Medications Medication Instructions Recorded Confirmed Type methadone 10 mg/5 mL oral solution 110 mg PO QAM 11/16/21 04/30/22 History sennosides 8.6 mg tablet (senna) 1 tab PO DAILY 12/20/21 04/30/22 History docusate sodium 100 mg capsule 100 mg PO DAILY #60 caps 03/13/22 04/30/22 Rx (Colace) calcitriol 0.25 mcg capsule 0.25 mcg PO DAILY #14 caps 03/28/22 04/30/22 Rx magnesium gluconate 27 mg 27 mg PO BID #10 tabs 03/28/22 04/30/22 Rx magnesium (500 mg) tablet calcium carbonate 200 mg calcium 5,000 mg PO DIRECTED 04/16/22 04/30/22 History (500 mg) chewable tablet (Tums) buspirone 10 mg tablet 20 mg PO TID #180 tabs 04/19/22 04/30/22 Rx cyclobenzaprine 10 mg tablet 10 mg PO BID #180 tabs 04/19/22 04/30/22 Rx gabapentin 600 mg tablet 600 mg PO TID #270 tabs 04/19/22 04/30/22 Rx lorazepam 1 mg tablet (Ativan) 1 mg PO TID PRN anxiety #42 tabs 04/19/22 04/30/22 Rx trazodone 100 mg tablet 100 mg PO HS #90 tabs 04/19/22 04/30/22 Rx Exam Narrative Exam Narrative: General: Patient appears appropriate for age, moderately obese, withdrawn with flattened affect and poor eye contact. He does not appear in acute distress and is alert and oriented to person, place and time. He does have dysmorphic featur es over his face. HEENT: Normocephalic, face slightly puffy without pitting edema. Eyes with pupils equal and react to light symmetrically, extraocular movement tact and sclera anicteric. Oropharynx with slightly dry mucosa and fair dentition. Neck: Supple without JVD. No palpable masses with well-healed surgical scar. Back: Stooped posture without CVA tenderness. Lungs: Fair aeration and clear to auscultation and percussion. Heart: Regular rate and rhythm with no murmurs or gallops appreciated. Abdomen: Obese contour, soft and nontender to palpation with no palpable hepatosplenomegaly. Genitalia/rectal: Exam deferred. Extremities: Without clubbing, cyanosis or pitting edema with moderate nonpitting edema over lower extremities with obesity. Peripheral pulses intact. Skin: Normal color, warm and dry. Neuro: Cranial nerves II through XII gross intact, no focalized motor deficits or tremor. Psych: Flattened affect with depressed mood. Minimal conversation with monotonous tone and slow benny to speech. No abnormal thought processes manifested. Remote and recent memory appear to be grossly intact though patient converses minimally as stated. Results Imaging Imaging Studies: Exam(s) CT ABDOMEN ? PELVIS W EXAM: ? CT ABDOMEN ? PELVIS W CLINICAL HISTORY: ? abdominal pain. ? TECHNIQUE:? Imaging Protocol: Axial computed tomography images with coronal and sagittal reformatted images were created and reviewed CONTRAST MATERIAL:? Intravenous: Omnipaque 100cc Oral: None COMPARISON:? CT CT ABDOMEN ? PELVIS W from 03/06/2022 FINDINGS: VISUALIZED LUNG BASES: No nodules nor pleural effusions evident.? ABDOMEN: There is no ascites. LIVER: There are no focal hepatic lesions evident.? Minimally dilated ducts are again noted in the left hepatic lobe. GALLBLADDER/BILIARY: No obvious gallbladder pathology.? CBD diameter is upper normal. PANCREAS: No evidence of pancreatic mass nor dilatation of the pancreatic duct.? SPLEEN: Spleen is not enlarged.? Small calcified splenic granulomas noted.? No significant intrasplenic lesions.? Splenic and portal veins are patent. ADRENALS: There are no significant adrenal masses. KIDNEYS:No cysts evident.? No solid renal masses.? No calculi nor hydronephrosis.. ABDOMINAL AORTA: Abdominal aorta is not enlarged. LYMPH NODES:There is no retroperitoneal nor paraaortic adenopathy. ABDOMINAL WALL: No evidence of significant anterior abdominal wall nor inguinal hernia. GI: Abundant fecal material in the colon but no distinct transition point.? There is no significant sigmoid diverticular disease. PELVIS:? GI: No evidence of appendicitis.No evidence of sigmoid diverticulitis. LYMPH NODES: There is no intrapelvic nor inguinal adenopathy. REPRODUCTIVE: Prostate not enlarged URINARY BLADDER: No calculi nor obvious masses evident OSSEOUS: No significant osseous lesions. IMPRESSION: 1. No significant acute findings in the abdomen pelvis. 2. Abundant fecal material is noted in the colon no bowel obstruction. 3. No ascites. Labs Result diagrams: 04/30/22 05:56 05/01/22 08:49 Labs: Laboratory Results - last 24 hr 05/01/22 05/01/22 05/01/22 03:34 03:34 08:49 Sodium 141 141 Potassium 3.6 4.1 Chloride 101 102 Carbon Dioxide 32.9 H 32.1 H Anion Gap 7.1 6.9 BUN 19 H 17 Creatinine 1.4 H 1.3 Est GFR (CKD-EPI 2020) 70.21 76.74 Glucose 102 99 Calcium 8.3 L 8.7 Magnesium 1.4 L 1.7 L Last Vital Signs Temp 36.6 C 05/01/22 21:15 Pulse 79 05/01/22 21:15 Resp 18 05/01/22 21:15 BP 126/76 05/01/22 21:15 Pulse Ox 96 05/01/22 21:15
[2022-05-01 21:26] LABS: Source Nasal/Nares
[2022-05-01] MEDS: traZODone 50 MG TAB 100 MG PO (21:30)
[2022-05-01 21:52] VITALS: BP 124/73; PULSE 76; RESP 18; TEMP 36.7; O2SAT 95
[2022-05-01 21:57] LABS: COVID-19 PCR Negative (Negative)
[2022-05-01] MEDS: Acetaminophen 325 MG TAB PO (22:49)
[2022-05-02 06:47] VITALS: BP 102/66; PULSE 75; RESP 18; TEMP 36.6; O2SAT 95
[2022-05-02] MEDS: busPIRone 5 MG TAB 10 MG PO ×3 (08:05→20:35)
[2022-05-02] MEDS: Calcium Carbonate *TUMS* 500 MG CHEW 2000 MG PO ×4 (08:06→20:48)
[2022-05-02] MEDS: Calcitriol 0.25 MCG CAP PO (08:06)
[2022-05-02] MEDS: Gabapentin 600 MG TAB PO ×3 (08:06→20:35)
[2022-05-02] MEDS: Cyclobenzaprine 10 MG TAB PO ×2 (08:06→20:35)
[2022-05-02] MEDS: Magnesium Gluconate 500 MG TAB PO ×2 (08:07→12:21)
[2022-05-02] MEDS: Methadone Liquid 10 MG/ML 110 MG PO (08:07)
[2022-05-02] MEDS: Senna TAB 1 TAB PO (08:07)
[2022-05-02 08:26] LABS: Anion Gap 5.6 mmol/L (3-11); BUN 17 mg/dL (7-18); CO2 31.4 mmol/L (21.0-32.0); CREATININE 1.2 mg/dL (0.70-1.30); Calcium 7.6 mg/dL (8.5-10.1); Chloride 102 mmol/L (98-107); Estimated GFR 84.48 (mL/min/1.73m2); Glucose 92 mg/dL (74-106); Magnesium 1.4 mg/dL (1.8-2.4); Potassium 3.7 mmol/L (3.5-5.1); Sodium 139 mmol/L (136-145)
[2022-05-02 11:17] LABS: Lab Add On Test DONE
[2022-05-02] MEDS: LORazepam 1 MG TAB PO ×2 (11:22→17:41)
[2022-05-02 11:27] LABS: Albumin 3.2 g/dL (3.4-5.0)
[2022-05-02] MEDS: MAGNESIUM SULFATE 4 GM/100 ML BAG IVPB (12:22)
--- NOTE | 2022-05-02 13:28 | PDOC.MHPN2 ---
Date of service: 05/02/22 Time of Service: 13:28 PHQ-9 Over the last 2 weeks, how often have you been bothered by any of the following problems? 1. Little interest or pleasure in doing things: nearly every day 2. Feeling down, depressed, or hopeless: nearly every day 3. Trouble falling or staying asleep, or sleeping too much: nearly every day 4. Feeling tired or having little energy: nearly every day 5. Poor appetite or overeating: nearly every day 6. Feeling bad about yourself - or that you are a failure or have let yourself and your family down: more than half the days 7. Trouble concentrating on things, such as reading the newspaper or watching television: not at all 8. Moving or speaking so slowly that other people could have noticed? - Or the opposite - being so fidgety or restless that you have been moving around a lot more than usual: more than half the days 9. Thoughts that you would be better off or of hurting yourself in some way: nearly every day Total score: 22 If you checked off any problems, how difficult have these problems made it for you to do your work, take care of things at home, or get along with other people?: extremely difficult Source: Developed by Drs. Santiago Olivares, Yany Walker, Allan Guzman and colleagues, with an educational lauren from [employer]. Suicide Severity Rate CSSRS Have you wished you were or wished you could go to sleep and not wake up?: Yes Have you actually had any thoughts of killing yourself?: Yes CSSRS2 Have you been thinking about how you might do this?: Yes Have you had these thoughts and had some intention of acting on them?: No Have you started to work out or worked out the details of how to kill yourself? Do you intend to carry out this plan?: Yes CSSRS3 Have you ever done anything, started to do anything or prepared to do anything to end your life?: Yes CSSRS4 Was this within the past three months?: No Screening Score Total Score: 6 Screening: Positive Mental Health Emergency Note Release [facility] release signed:: Yes Reason for Visit Imported from [facility] Samm[facility] crisis note: Client presented to [facility] ED on 04/29/22 2x due to medical reasons. Per collateral contact with ED provider [facility] client is having significant medical issues related to his thyroid and para thyroid gland and has been utilizing the ED for medical reasons almost daily sometimes up to 2x daily. Client presented 2x yesterday for medical reasons and when mother did not pick him up this morning at 4a he re-checked into the ED endorsing suicidal ideations. Client states I just can't do this anymore I have nothing to live for especially feeling like this. This assessment is done face to face. Client presents to day endorsing significant depression and continued seeking of psychiatric placement. Per record review he was last hospitalized at [facility] in November 2021. In the last 2 weeks has the pt presented for ES prior to today?: Yes, presented at [facility] ED Client Information Client is: Adult Outpatient Well Housed: Yes Non Suicidal Self Injury Current: No History: No Safety Risk/Harm to Self or Others Current Ideation to Harm Self or Others: No Risk: Does risk to harm exist?: No Risk: Low Risk Duty to warn indicated: No Asssessment/Mental Status Appearance: Disheveled Attitude: Cooperative and Friendly Behavior: Unremarkable Speech: Normal Affect: Flat and Cogruent with mood Mood: Depressed Thought process: Goal directed Hallucinations: No Delusions: No Attention: Unremarkable Perception: Not impaired Orientation: Fully orientated Memory: Intact Insight: Fair Judgement: Fair Neurovegetative Symptoms Sleep: Decrease Appetitie: No change Interests: No change Energy: No change Libido: Not applicable Substance Use: Do you use nicotine?: No Have you used substances in the last 7 days?: No Additional Issues: Assaultive/Threatening Behavior: No Medical Concerns: No Client engaged in active self harm w/weapon: No Threatening to run away: No Child reported abuse/neglect: No Voluntarily presenting for services: Yes Domestic violence is a concern: No Extreme Psychosis or extreme behavior is present: No Impression Client presented to the ED on 04.29.2022 twice seeking medical attention. When his mother did not show at 4am to pick him up he re-admitted himself stating that he was suicidal. Client presents today sleeping but fairly easy to wake. He appeared depressed and answered questions with short responses. Client has a known history of depression and treatment and his medical condition complicates those symptoms as well. He is still seeking a voluntary placement to address his depressive symptoms so that he can return home feeling better. Plan/Disposition Recommended Disposition: Hospitalization facilities contacted. Plan: Client will remain at [facility] pending acceptance to a psychiatric facility or he is able to safety plan home. He will be re-assessed daliy by [facility]. Facilities contacted if Applicable [facility] Not accepted, Medical reasons [facility] Not accepted, No bed available [facility] Not accepted, Only accepting in house referrals [facility] Not accepted, Other (referral faxed they will review in the am. ), [facility] Not accepted, Only accepting in house referrals [facility] Not accepted, Medical reasons Other: Other ([facility] not [facility] No bed available Reports/communication Outcome discussed with: ED/Personnel
[2022-05-02 16:03] VITALS: BP 97/60; PULSE 69; RESP 16; TEMP 36.3; O2SAT 95
[2022-05-02] MEDS: Hydrocortisone 1% CR 30 GM TUBE TP (16:24)
--- NOTE | 2022-05-02 16:30 | PDOC.CMSAFE ---
- If Service Date Differs Date of service: 05/02/22 Time of Service: 16:30 Care Management Safety Plan Status: Voluntary - Reason for Wait Reason for Wait: Inpatient Admission Pedro Pablo is a 26 year old young man who presented to the ED with ongoing medical issues. As he was preparing for discharge he informed the staff that he did not feel safe to go home and was having suicidal thoughts. Pedro Pablo is well known to [facility] and presents regularly to the ED (43 times so far in 2021) with medical concerns and well as anxiety and depression. He has been hospitalized at least twice this year at [facility]. Pedro Pablo was screened by [facility] crisis screener this morning and was determined to meet criteria for voluntary inpatient admission. VOLUNTARY FOR INPATIENT PSYCHIATRIC STABILIZATION. Patient is appropriate in all interactions since arriving at [facility]; Pt has demonstrated appropriate coping and communication skills, has articulated his or her needs and concerns and is fully engaged during staff interactions. Safety plan has been established with patient, and care team, to adhere to patient goals, identify restrictions based on behavioral status, address nutrition, and determine allowed personal belongings, tools for hygiene and personal care. Determine level of activity including ambulation, level of supervision, visitors, and determine privileges based on behaviors and level of engagement by pt. VOLUNTARY SAFETY PLAN: 1. Will remain on suicide precautions. In Paper Clothes 2. Will remain in room under direct supervision of one-on-one staff at all times provided by [employer]; [employer], SYSTEM DESIGNER robotic machine operator. 3. May have paper cups, plates, finger foods as well as a cardboard spoon with which to eat meals. 4. Follow [facility] Management of the Admitted Behavioral Health Patient policy. 5. Comfort bath system only, shower permitted with escort at RN discretion. 6. No personal belongings-soft items permitted at RN discretion. 7. Visitors-none at this time. 8. Activities: soft cart items approved per RN discretion. 9. Bathroom privileges with escort in the ED, available in room without limitation on M/S. 10. Phone: contact limited to immigration paralegal at this time, via cordless phone at RN discretion. 11. Due to VOLUNTARY status, if patient wishes to leave [facility], staff will contact [facility] Crisis Screener ([phone]) and On-Call Labeling Specialist ([phone]) as soon as possible. In the event of elopement, notify [facility] Police ([phone]). Patient is currently voluntarily at [facility] and seeking inpatient admission when a bed becomes available. [facility] Frontline Packaging Line Attendant will continue seeking placement. Please contact the Ict Developer Labeling Specialist ([phone]) and [facility] Packaging Line Attendant ([phone]) for any needed changes in the Safety Plan. Safety plan has been provided to interdepartmental care team.
--- NOTE | 2022-05-02 16:32 | PDOC.CMPRO ---
- If Service Date Differs Date of service: 05/02/22 Time of Service: 16:32 Care Management Progress Note S/O: Pedro Pablo was sitting up in bed when CM met with him. He stated that he is feeling ok medically today, but feels that he will benefit from psychiatric stabilization. He prefers to go to [facility], which currently has no beds available. [facility], screened him this morning and followed up with all hospitals. He has been medically declined by [facility]. There are no beds at [facility], [facility], [facility], [facility], or the [facility]. Pedro Pablo is agreeable to go to the first available bed at a psychiatric facility. CM will continue to follow. A: Pedro Pablo is a 26 year old male admitted to [facility] on 05/01/22 with depression, SI. P: Pedro Pablo will transfer for inpatient psychiatric stabilization once a bed becomes available, and he is accepted for treatment. He will transfer via Property Accountant vs EMS, depending on availability at the time of transport. He will follow up with his PCP and discharge plan of care. CM will continue to follow.
--- NOTE | 2022-05-02 17:55 | PGE_ITS ---
Date of Service Date of service: 05/02/22 Time of Service: 10:30 Assessment and Plan Assessment and plan (1) Suicidal ideations: Start date: 05/02/22 Status: Acute Assessment and plan: Observation for suicidal ideation and hopelessness, no plan. He is on multiple psychiatric medical therapy and the plan is that he will be transferred to inpatient psychiatric care. He is medically cleared/ (2) Depression: Status: Chronic Assessment and plan: Continue usual outpatient medical therapy and medications while awaiting inpatient psychiatric care. (3) Primary hyperparathyroidism: Status: Chronic Assessment and plan: Now status post parathyroidectomy for adenoma and on high-dose calcium supplementation. He also has magnesium supplement. He occasionally has increased somatic complaints when his electrolytes are abnormal but he is compliant with medical therapy. Continue oral supplement while hospitalized. (4) Hypomagnesemia: Status: Chronic Assessment and plan: Status post IV supplement in the ED during his hospitalization with continued oral supplement; doubled magnesium dose to 1000 mg twice a day. Did receive IV magnesium today for 1.4 mag (5) Hypocalcemia: Status: Chronic Assessment and plan: Chronic status post parathyroidectomy and will need high-dose supplement. Com pliance will help decrease his somatic complaints. (6) Chronic constipation: Status: Chronic Assessment and plan: Continue daily cathartic and as needed cathartics while hospitalized. Encourage MiraLAX, lots of stool in his colon per xray. Subjective Subjective Patient reports: no new complaints Exam Const General: cooperative, no acute distress and not ill appearing Orientation: alert, awake and oriented x3 Resp Effort & Inspection: normal respiratory effort, able to speak in complete sentences and no respiratory distress Skin General skin exam: no rashes or lesions noted Neuro General: patient alert, patient awake, patient oriented x3 and moves all extremities Psych Appearance: disheveled Mental Status: mental status grossly normal Speech and Movement: delayed speech and slowed movement Mood: labile mood Affect: labile affect, sad and blunted Attitude: cooperative Thought Process: tangential Thought Content: suicidality Insight: limited Judgment: poor Objective Last Vital Signs Temp 36.3 C L 05/02/22 16:03 Pulse 69 05/02/22 16:03 Resp 16 05/02/22 16:03 BP 97/60 L 05/02/22 16:03 Pulse Ox 95 05/02/22 16:03 Laboratory Results - last 24 hr 05/01/22 05/02/22 05/02/22 21:25 08:09 08:13 Sodium 139 Potassium 3.7 Chloride 102 Carbon Dioxide 31.4 Anion Gap 5.6 BUN 17 Creatinine 1.2 Est GFR (CKD-EPI 2020) 84.48 Glucose 92 Calcium 7.6 L Magnesium 1.4 L Albumin COVID-19 Source Nasal/Nares SARS-CoV-2 (PCR) Negative Add-On Test Request DONE 05/02/22 08:15 Sodium Potassium Chloride Carbon Dioxide Anion Gap BUN Creatinine Est GFR (CKD-EPI 2020) Glucose Calcium Magnesium Albumin 3.2 L COVID-19 Source SARS-CoV-2 (PCR) Add-On Test Request
[2022-05-02] MEDS: Magnesium Gluconate 500 MG TAB 1000 MG PO (20:34)
[2022-05-02] MEDS: traZODone 100 MG TAB PO (21:58)
[2022-05-03 01:47] VITALS: BP 103/66; PULSE 78; RESP 16; TEMP 36.7; O2SAT 98
[2022-05-03 06:58] LABS: Abs Immature Grans 0.02 10^3/uL (0.0-0.06); Absolute Basophil Count 0.04 10^3/uL (0.0-0.2); Absolute Eosinophil Count 0.26 10^3/uL (0.0-0.7); Absolute Lymphocyte Count 2.55 10^3/uL (1.2-3.4); Absolute Monocyte Count 0.59 10^3/uL (0.1-0.8); Absolute Neutrophil Count 2.55 10^3/uL (1.2-6.7); Basophils % 0.7; Eosinophils % 4.3; HCT 32.4 % (40.0-50.0); HGB 10.6 g/dL (13.5-17.5); Immature Grans % 0.3; Lymphocytes % 42.4; MCH 30.3 pg (27.0-33.0); MCHC 32.7 % (32.0-36.0); MCV 93 fL (80-95); MPV 10.5 fL (8.0-11.0); Monocytes % 9.8; Neutrophils % 42.5; Platelet Count 252 10^3/uL (130-400); RDW 11.7 % (11.8-14.1); RDW-SD 39.8 fL; WBC 6.01 10^3/uL (4.4-10.8)
[2022-05-03 07:13] LABS: Anion Gap 4.6 mmol/L (3-11); BUN 18 mg/dL (7-18); CO2 34.4 mmol/L (21.0-32.0); CREATININE 1.3 mg/dL (0.70-1.30); Calcium 7.8 mg/dL (8.5-10.1); Chloride 101 mmol/L (98-107); Estimated GFR 76.74 (mL/min/1.73m2); Glucose 93 mg/dL (74-106); Magnesium 1.8 mg/dL (1.8-2.4); Potassium 4.1 mmol/L (3.5-5.1); Sodium 140 mmol/L (136-145)
[2022-05-03 07:50] VITALS: BP 97/58; PULSE 67; RESP 18; TEMP 36.5; O2SAT 94
[2022-05-03] MEDS: Magnesium Gluconate 500 MG TAB 1000 MG PO (09:09)
[2022-05-03] MEDS: Hydrocortisone 1% CR 30 GM TUBE TP ×2 (09:09→13:44)
[2022-05-03] MEDS: Gabapentin 600 MG TAB PO ×2 (09:09→13:44)
[2022-05-03] MEDS: Calcitriol 0.25 MCG CAP PO (09:10)
[2022-05-03] MEDS: busPIRone 5 MG TAB 10 MG PO ×2 (09:10→13:44)
[2022-05-03] MEDS: Cyclobenzaprine 10 MG TAB PO (09:10)
[2022-05-03] MEDS: Senna TAB 1 TAB PO (09:10)
[2022-05-03] MEDS: Calcium Carbonate *TUMS* 500 MG CHEW 2000 MG PO ×2 (09:10→11:52)
[2022-05-03] MEDS: Methadone Liquid 10 MG/ML 110 MG PO (09:11)
[2022-05-03] MEDS: LORazepam 1 MG TAB PO (10:29)
--- NOTE | 2022-05-03 10:42 | PDOC.CMSAFE ---
- If Service Date Differs Date of service: 05/03/22 Time of Service: 10:42 Care Management Safety Plan Status: Voluntary - Reason for Wait Reason for Wait: Inpatient Admission Pedro Pablo is a 26 year old young man who presented to the ED with ongoing medical issues. As he was preparing for discharge he informed the staff that he did not feel safe to go home and was having suicidal thoughts. Pedro Pablo is well known to [facility] and presents regularly to the ED (43 times so far in 2021) with medical concerns and well as anxiety and depression. He has been hospitalized at least twice this year at [facility]. Pedro Pablo was screened by [facility] crisis screener this morning and was determined to meet criteria for voluntary inpatient admission. VOLUNTARY FOR INPATIENT PSYCHIATRIC STABILIZATION. Patient is appropriate in all interactions since arriving at [facility]; Pt has demonstrated appropriate coping and communication skills, has articulated his or her needs and concerns and is fully engaged during staff interactions. Safety plan has been established with patient, and care team, to adhere to patient goals, identify restrictions based on behavioral status, address nutrition, and determine allowed personal belongings, tools for hygiene and personal care. Determine level of activity including ambulation, level of supervision, visitors, and determine privileges based on behaviors and level of engagement by pt. VOLUNTARY SAFETY PLAN: 1. Will remain on suicide precautions. In Paper Clothes 2. Will remain in room under direct supervision of one-on-one staff at all times provided by [employer]; SHITAL, SMALL PRODUCTS I ASSEMBLER clerical and office support workers. 3. May have paper cups, plates, finger foods as well as a cardboard spoon with which to eat meals. 4. Follow [facility] Management of the Admitted Behavioral Health Patient policy. 5. Comfort bath system only, shower permitted with escort at RN discretion. 6. No personal belongings-soft items permitted at RN discretion. 7. Visitors-none at this time. 8. Activities: soft cart items approved per RN discretion. 9. Bathroom privileges with escort in the ED, available in room without limitation on M/S. 10. Phone: contact limited to legal paraprofessional at this time, via cordless phone at RN discretion. 11. Due to VOLUNTARY status, if patient wishes to leave [facility], staff will contact [facility] Crisis Screener ([phone]) and On-Call Stone Polisher ([phone]) as soon as possible. In the event of elopement, notify [facility] Police ([phone]). Patient is currently voluntarily at [facility] and seeking inpatient admission when a bed becomes available. [facility] Frontline Fur Dressing Supervisor will continue seeking placement. Please contact the Natural Resource Economist Stone Polisher ([phone]) and [facility] Fur Dressing Supervisor ([phone]) for any needed changes in the Safety Plan. Safety plan has been provided to interdepartmental care team.
--- NOTE | 2022-05-03 10:43 | PDOC.CMPRO ---
- If Service Date Differs Date of service: 05/03/22 Time of Service: 10:43 Care Management Progress Note S/O: A: Pedro Pablo is a 26 year old male admitted to [facility] on 05/01/22 with depression, SI. P: Pedro Pablo will transfer for inpatient psychiatric stabilization once a bed becomes available, and he is accepted for treatment. He will transfer via [facility] vs EMS, depending on availability at the time of transport. He will follow up with his PCP and discharge plan of care. CM will continue to follow. - Status Status: Voluntary - Reason for Wait Reason for Wait: Inpatient Admission
--- NOTE | 2022-05-03 12:09 | DSE_ITS ---
Date of service: 05/03/22 Time of Service: 12:09 DS: Diagnosis Discharge Diagnosis (1) Suicidal ideations: Status: Acute (2) Depression: Status: Chronic (3) Primary hyperparathyroidism: Status: Chronic (4) Hypomagnesemia: Status: Chronic (5) Hypocalcemia: Status: Chronic (6) Chronic constipation: Status: Chronic Discharge Plan Disposition Patient Disposition: Home Condition: Stable Discharge Details Reason For Visit: Depression, Suicidal Ideation Admit Date/Time: 05/01/22 20:37 Admit Provider: Uday Whitaker Attending Provider: Uday Whitaker Primary Care Provider: Brendon Vivar [facility] Hospital Course: This is a 26-year-old male patient who has a past medical history of PTSD with anxiety and severe psychiatric dysfunction with frequent ER visits, up to 90 over the last year according to ED physician, for somatic complaints associated with electrolyte abnormalities status post parathyroidectomy 03/26/2022 now with hypocalcemia on high supplement.? [place] [facility] [place] He does have a history of hyperlipidemia and MEN type I.? His medical therapy is mostly for psychiatric disease.? In the ED he reported suicidal ideation during this visit with his usual physical complaints which are usually musculoskeletal.? He said that he was feeling hopeless with his continued medical problems and suicidal though he had no plan.? He was in the ED holding over the last couple of days and does have plans for inpatient psychiatric evaluation and treatment requiring supervision until that time.? He was admitted to observation with a sitter.? He denied any psychotic complaints with no hallucinations but did feel that he would not be safe going home.? He was medically cleared for placement for inpatient psychiatric care at this time is not requiring any further labs or IV administration.? He did receive IV magnesium upon admission to the ED initially.? He is a full code. Day two of observation he did receive more IV magnesium. Hir oral dose was doubled to 1000 mg twice a day. He met with [facility] and did agree to a safety plan and wanted to go home. He asked for a refill of muscle relaxants. Upon investigation it was found that he filled his Rx 3 weeks ago and has 3 refills left. He was not given a prescription for any muscle relaxants. He was discharged stable improved to home, denying any suicidal ideation. Home Meds and New Rx's Prescriptions: Continued buspirone 10 mg tablet 20 mg PO TID Qty: 180 11RF cyclobenzaprine 10 mg tablet 10 mg PO BID Qty: 180 3RF gabapentin 600 mg tablet 600 mg PO TID Qty: 270 3RF trazodone 100 mg tablet 100 mg PO HS Qty: 90 3RF lorazepam [Ativan] 1 mg tablet 1 mg PO TID PRN (Reason: anxiety) Qty: 42 0RF methadone 10 mg/5 mL solution 110 mg PO QAM calcitriol 0.25 mcg capsule 0.25 mcg PO DAILY Qty: 14 0RF magnesium gluconate 27 mg magnesium (500 mg) tablet 27 mg PO BID Qty: 10 0RF sennosides [senna] 8.6 mg tablet 1 tab PO DAILY Label Comments: TAKE TWO TABLETS BY MOUTH AT BEDTIME docusate sodium [Colace] 100 mg capsule 100 mg PO DAILY Qty: 60 0RF calcium carbonate [Tums] 200 mg calcium (500 mg) Tablet,Chewable 5,000 mg PO DIRECTED Discharge Instructions Instructions: Depression (DC), Suicide Prevention (DC) Additional Instructions: Follow safety plan with [facility] Stand Alone Forms: Nursing Discharge Form Referrals: Brendon Vivar DO [Primary Care Provider] - 05/07/22 10:15 am () Activity:: Activity as Tolerated Equipment/Supplies:: No Equipment Needed Diet:: As Tolerated Discharge Orders Discharge Orders: Discharge Order (Routine); Ordered 05/03/22 Ordered By: Mandi Evans Discharge Data Discharge Date/Time-TO BE ENTERED AT DEPARTURE: 05/03/22 14:41 DS: Summary Time Spent with Patient providing and/or coordinating discharge services: Greater than 30 minutes Status at Discharge Functional status at discharge: independent ambulation Overall status at discharge: patient is progressing back to baseline Mental Status: mental status grossly normal Speech and Movement: delayed speech and slowed movement Mood: labile mood Affect: blunted Exam Narrative Exam Narrative: General: Patient appears appropriate for age, moderately obese. He is not in acute distress and is alert and oriented to person, place and time. He does have dysmorphic features over his face. He is sitting up in bed, leaning forward, states he has no needs and currently no complaints. HEENT: Normocephalic, face slightly puffy without pitting edema. Eyes with pupils equal and react to light symmetrically, extraocular movement tact and sclera anicteric. Oropharynx with slightly dry mucosa and fair dentition. Neck: Supple without JVD. No palpable masses with well-healed surgical scar from recent parathyroidectomy Back: Stooped foward leaning while seated in bed, without CVA tenderness. Lungs: Fair aeration and clear to auscultation and percussion. Heart: Regular rate and rhythm with no murmurs or gallops appreciated. Abdomen: Obese contour, soft and nontender to palpation with no palpable hepatosplenomegaly. Genitalia/rectal: Exam deferred. Extremities: Without clubbing, cyanosis or pitting edema with moderate nonpitting edema over lower extremities with obesity. Peripheral pulses intact. Skin: Normal color, warm and dry. Neuro: Cranial nerves II through XII gross intact, no focalized motor deficits or tremor. Psych: Flattened affect with depressed mood. Minimal conversation with monotonous tone and slow benny to speech. No abnormal thought processes manifested. Remote and recent memory appear to be grossly intact though patient converses minimally as stated. Psych Mental Status: mental status grossly normal Speech and Movement: delayed speech and slowed movement Mood: labile mood Affect: blunted DS: Data Vitals/I&O Vitals and I&O: Vital Signs Temperature 36.5 C 05/03/22 07:50 Temperature Source Tympanic 05/03/22 07:50 Pulse 67 05/03/22 07:50 Pulse Rhythm Regular 05/03/22 10:55 Respiratory Rate 18 05/03/22 07:50 Respiratory Effort Non-Labored 05/03/22 10:55 Respiratory Depth Normal 05/03/22 10:55 Respiratory Pattern Normal 05/03/22 10:55 Blood Pressure 97/58 L 05/03/22 07:50 Blood Pressure Position Sitting 04/30/22 05:31 Pulse Oximetry 94 05/03/22 07:50 Oxygen Delivery Method Room Air 05/03/22 07:50 Oxygen Flow Rate 0 05/03/22 07:50 Pain Level 0 05/03/22 07:50 Comment 05/03/22 07:50 Intake & Output 05/02/22 05/03/22 05/03/22 23:59 11:59 23:59 Intake Total 100 / 340 110 / 110 Balance 100 / 340 110 / 110 Intake: IV 100 / 100 Oral 110 / 110 Other: Urine Appearance Clear Clear Comment independent to the bathroom Voiding Methods Toilet Toilet Data Completed and Pending Labs on day of discharge: Labs from last 24 hours 05/03/22 05/03/22 06:45 06:45 WBC 6.01 RBC 3.50 L Hgb 10.6 L Hct 32.4 L MCV 93 MCH 30.3 MCHC 32.7 RDW 11.7 L Plt Count 252 MPV 10.5 Immature Gran % 0.3 Neutrophils % 42.5 Lymphocytes % 42.4 Monocytes % 9.8 Eosinophils % 4.3 Basophils % 0.7 Nucleated RBC % 0.0 Absolute Neutrophils 2.55 Absolute Lymphocytes 2.55 Absolute Monocytes 0.59 Absolute Eosinophils 0.26 Absolute Basophils 0.04 Sodium 140 Potassium 4.1 Chloride 101 Carbon Dioxide 34.4 H Anion Gap 4.6 BUN 18 Creatinine 1.3 Est GFR (CKD-EPI 2020) 76.74 Glucose 93 Calcium 7.8 L Magnesium 1.8 PFSH All Active Problems (Updated 05/02/22 @ 07:08 by Uday Whitaker) Chronic constipation (Chronic) Primary hyperparathyroidism (Chronic) Viral syndrome (Acute) Vomiting (Acute) Abdominal pain (Acute) Depression (Chronic) Suicidal ideations (Acute) Chest wall pain (Acute) Chronic chest pain (Acute) Acute thoracic myofascial strain (Acute) Anemia (Chronic) Fatigue (Acute) Hypocalcemia (Chronic) Hypomagnesemia (Chronic) Pain, dental (Acute) Hypomagnesemia (Acute) Depression (Chronic) Suicidal ideation (Acute) Elevated parathyroid hormone (Acute) Family history of coronary arteriosclerosis (Chronic) Father of NM at 50, mother had NM at 42 Severe anxiety with panic (Acute) Hypercalcemia (Acute) Cellulitis (Acute) Medical History Anxiety Depression Family history of multiple endocrine neoplasia, type 1 Hyperlipidemia Hypocalcemia PTSD (post-traumatic stress disorder) Surgical History H/O parathyroidectomy Family History Mother Anxiety Asthma Depression Sister Anxiety Depression Father Cancer lung & stomach Depression Diabetes Hypertension MEN 1 (multiple endocrine neoplasia) Social History Smoking/Tobacco Use Status: Never Smoking risk assessment performed?: Yes Alcohol Intake: never Drug 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 Adopted: No Caregiver/Support person: No Foster care: No Household members: none Housing: house Number of Children: 0 Communication Needs: None Education Level: high school Do you need help understanding health information?: Never 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 and animals: Yes (Ally) Pets and animals: dog(s) Sexually active: No Do you think of yourself as: straight/heterosexual Current gender identity: male What is your relationship status?: How often do you talk on the phone with friends or family?: twice per week How often do you get together with friends or relatives?: never Do you belong to any clubs or organized social groups?: no Panel score (0-1 are the most socially isolated patients): 0 What type of physical activity do you participate in: walking Duration: 15-30 minutes/day Frequency: 5-6 times per week Maryam/Buddhism: Adventism Special maryam needs: No Seatbelt use: always Helmet use: Yes Helmet use: always Drive 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 entry driver operator: No Do you feel safe at home: Yes Do you feel safe in your relationship?: Yes
--- NOTE | 2022-05-03 12:32 | PDOC.CMDIS ---
- If Service Date Differs Date of service: 05/03/22 Time of Service: 12:32 LACE Index Scoring Tool - Questions: Length of Stay (in days): 3 Acuity (Admit via E.D.?): Yes E.D. Visits: 43 - Answers: Total Score: 10 Risk of Readmission: High Risk Care Management Discharge Reason for Hospitalization: SI, depression Discharge Plan: Pedro Pablo will return home today with a contract for safety that he created with [facility]. He stated that he will be staying with his sister, who is supportive. His mother will drive him home via private vehicle when ready. CM provided a last dose letter for Ortega will follow up with his PCP and discharge plan of care. He is looking forward to returning home. Patient/Family Education Needs: Review discharge instructions and limitations, discussion of self care needs including ask me three and participating in safety plan with [facility]. - MH Services (Omit if N/A) Current MH Services: NK (safety plan for the community) - Disposition Disposition: Community Discharge Transport via of: [employer]
== END 2022-05-03 14:41 | disposition home or self-care (01) ==
LOC: ER 05-01 20:45 → MS 05-01 21:47
PROVIDERS: Internal Medicine; Nurse Practitioner Family; Student in an Organized Health Care Education/Training Program; Admitting Provider Family Medicine; Emergency Provider Nurse Practitioner Family; PCP Family Medicine; Visit Provider Family Medicine
DX: F32.A Depression, unspecified (principal); R45.851 Suicidal ideations; E83.42 Hypomagnesemia; K59.09 Other constipation; Z79.899 Other long term (current) drug therapy; E78.00 Pure hypercholesterolemia, unspecified; F43.10 Post-traumatic stress disorder, unspecified; E31.21 Multiple endocrine neoplasia [MEN] type I; E89.2 Postprocedural hypoparathyroidism; D64.9 Anemia, unspecified; F11.20 Opioid dependence, uncomplicated; Z20.822 Contact with and (suspected) exposure to COVID-19
CPT/HCPCS: 36415; 80048; 80053; 80307; 87635; 93005; 96365; 96366; 80320; 80329; 82040; 83735; 84443; 85025; 93010; 99217; 99220; 99225; G0378; J0610; J2405; J3475

== ENCOUNTER 2022-05-10 16:11 | Inpatient (IN) | payer OTHER, SELFPAY ==
[2022-05-10] VITALS (22 sets, daily range): BP systolic 120–158; BP diastolic 78–97; PULSE 90–141; RESP 11–26; TEMP 36.6–37.2; O2SAT 97–99
--- NOTE | 2022-05-10 16:15 | RT.EKG_ITS ---
APPROVED REPORT Exam: Resting ECG Reason for Exam: chest pain Patient Location: E HR:145 bpm ECG Measurements Heart Rate 145 AXIS OR 102 P 60 QRSd 94 QRS 106 QT 315 T -50 QTc 488 Conclusion Sinus tachycardia...rate> 99 Nonspecific T abnormalities, inferior leads...T <-0.10mV, II III aVF
[2022-05-10 16:55] LABS: Abs Immature Grans 0.05 10^3/uL (0.0-0.06); Absolute Basophil Count 0.02 10^3/uL (0.0-0.2); Basophils % 0.1; Eosinophils % 2.2; HCT 36.6 % (40.0-50.0); HGB 12.3 g/dL (13.5-17.5); Immature Grans % 0.3; Lymphocytes % 16.1; MCH 30.4 pg (27.0-33.0); MCHC 33.6 % (32.0-36.0); MCV 91 fL (80-95); MPV 11.1 fL (8.0-11.0); Monocytes % 7.5; Neutrophils % 73.8; Platelet Count 315 10^3/uL (130-400); RBC 4.04 10^6/uL (4.36-5.78); RDW 11.6 % (11.8-14.1); RDW-SD 38.6 fL; WBC 15.69 10^3/uL (4.4-10.8)
[2022-05-10 16:56] LABS: Absolute Eosinophil Count 0.35 10^3/uL (0.0-0.7); Absolute Lymphocyte Count 2.53 10^3/uL (1.2-3.4); Absolute Monocyte Count 1.18 10^3/uL (0.1-0.8); Absolute Neutrophil Count 11.58 10^3/uL (1.2-6.7)
[2022-05-10 17:13] LABS: ALT 37 U/L (16-63); AST 28 U/L (15-37); Albumin 3.7 g/dL (3.4-5.0); Alkaline Phosphatase 112 U/L (46-116); Anion Gap 5.4 mmol/L (3-11); BUN 30 mg/dL (7-18); Bilirubin, Total 0.4 mg/dL (0.2-1.0); CO2 34.6 mmol/L (21.0-32.0); CREATININE 2.4 mg/dL (0.70-1.30); Chloride 96 mmol/L (98-107); Estimated GFR 36.77 (mL/min/1.73m2); Glucose 97 mg/dL (74-106); Lipase 43 U/L (73-393); Magnesium 1.8 mg/dL (1.8-2.4); Potassium 3.7 mmol/L (3.5-5.1); Sodium 136 mmol/L (136-145); Total Protein 8.2 g/dL (6.4-8.2); Troponin I < 50 ng/L (<or=60)
[2022-05-10 17:14] LABS: Calcium 13.6 mg/dL (8.5-10.1)
[2022-05-10] MEDS: Lactated Ringers 500 ML 1000 ML IV (17:22)
[2022-05-10] MEDS: Famotidine 20 MG/2 ML VIAL IVP (17:22)
[2022-05-10] MEDS: Prochlorperazine 10 MG/2 ML VIAL IVP (17:23)
--- NOTE | 2022-05-10 17:25 | ED.GENADUL_ITS ---
Discharge Plan Disposition Patient Disposition: Admit to [facility] Condition: Serious Discharge Details Clinical Impression: Hypercalcemia, Hypovolemia Admit Date/Time: 05/10/22 19:04 Admit Provider: Uday Whitaker Attending Provider: Uday Whitaker Primary Care Provider: Brendon Vivar ED Provider: Lester Bundy Discharge Data Discharge Date/Time-TO BE ENTERED AT DEPARTURE: 05/10/22 21:23 Medical Decision Making --26yo m with multiple medical problems including history of primary hyperparathyroidism, status post parathyroidectomy, here with nausea, vomiting and loose stool over the past day with associated abdominal and back pain. Patient is tender to the left upper quadrant. No peritoneal findings. Patient appears clinically hypovolemic. He is quite tachycardic on arrival and normotensive. Will give Pepcid IV and Compazine IV for nausea. Will give IV fluid bolus. -- Labs reviewed and hypercalcemia noted. Plan to continue IV fluid and will plan for admission. Lab Data Lab results reviewed: Yes I reviewed the patient's lab results. Labs: Laboratory Tests Range/Units 05/10/22 05/10/22 16:45 16:45 WBC (4.4-10.8) 10^3/uL 15.69 H RBC (4.36-5.78) 10^6/uL 4.04 L Hgb (13.5-17.5) g/dL 12.3 L Hct (40.0-50.0) % 36.6 L MCV (80-95) fL 91 MCH (27.0-33.0) pg 30.4 MCHC (32.0-36.0) % 33.6 RDW (11.8-14.1) % 11.6 L Plt Count (130-400) 10^3/uL 315 MPV (8.0-11.0) fL 11.1 H Immature Gran % 0.3 Neutrophils % 73.8 Lymphocytes % 16.1 Monocytes % 7.5 Eosinophils % 2.2 Basophils % 0.1 Nucleated RBC % (0.0-0.3) % 0.0 Absolute Neutrophils (1.2-6.7) 10^3/uL 11.58 H Absolute Lymphocytes (1.2-3.4) 10^3/uL 2.53 Absolute Monocytes (0.1-0.8) 10^3/uL 1.18 H Absolute Eosinophils (0.0-0.7) 10^3/uL 0.35 Absolute Basophils (0.0-0.2) 10^3/uL 0.02 Sodium (136-145) mmol/L 136 Potassium (3.5-5.1) mmol/L 3.7 Chloride (98-107) mmol/L 96 L Carbon Dioxide (21.0-32.0) mmol/L 34.6 H Anion Gap (3-11) mmol/L 5.4 BUN (7-18) mg/dL 30 H Creatinine (0.70-1.30) mg/dL 2.4 H Est GFR (CKD-EPI 2020) (mL/min/1.73m2) 36.77 Glucose (74-106) mg/dL 97 Calcium (8.5-10.1) mg/dL 13.6 H* Magnesium (1.8-2.4) mg/dL 1.8 Total Bilirubin (0.2-1.0) mg/dL 0.4 AST (15-37) U/L 28 ALT (16-63) U/L 37 Alkaline Phosphatase (46-116) U/L 112 Troponin I (<or=60) ng/L < 50 Total Protein (6.4-8.2) g/dL 8.2 Albumin (3.4-5.0) g/dL 3.7 Lipase (73-393) U/L 43 Sign Out No HPI General Mode of arrival: ambulatory . Date/Time Provider Initiated Documentation: 05/10/22 16:13 . Limitations to Documentation: no limitations . Information obtained by: patient . HPI Narrative: 26-year-old male with history of primary hyperparathyroidism, status post parathyroidectomy, here today generally not feeling well over the past day. He notes nausea vomiting and diarrhea. Patient also with abdominal pain and back pain. He has diffuse body aches. Pain is moderate to severe. Nausea and vomiting is severe. He is not able to keep any fluids down. Related Data Home Medications Medication Instructions Recorded Confirmed methadone 10 mg/5 mL oral solution 110 mg PO QAM 11/16/21 05/18/22 sennosides 8.6 mg tablet (senna) 1 tab PO DAILY 12/20/21 05/18/22 docusate sodium 100 mg capsule 100 mg PO DAILY #60 caps 03/13/22 05/18/22 (Colace) cyclobenzaprine 10 mg tablet 10 mg PO BID #180 tabs 04/19/22 05/18/22 gabapentin 600 mg tablet 600 mg PO TID #270 tabs 04/19/22 05/18/22 calcium carbonate 200 mg calcium 2,000 mg PO QID #0 tabs 05/12/22 05/18/22 (500 mg) chewable tablet (Tums) calcitriol 0.5 mcg capsule 1 mcg PO BID #360 caps 05/13/22 05/18/22 lorazepam 1 mg tablet (Ativan) 1 mg PO TID PRN anxiety #42 tabs 05/13/22 05/18/22 sertraline 150 mg capsule 150 mg PO DAILY #60 caps 05/13/22 05/18/22 trazodone 100 mg tablet 100 mg PO HS #90 tabs 05/13/22 05/18/22 magnesium gluconate 27 mg 1,000 mg PO TID #90 tabs 05/17/22 05/18/22 magnesium (500 mg) tablet Previous Rx's Medication Instructions Recorded docusate sodium 100 mg capsule 100 mg PO DAILY #60 caps 03/13/22 (Colace) cyclobenzaprine 10 mg tablet 10 mg PO BID #180 tabs 04/19/22 gabapentin 600 mg tablet 600 mg PO TID #270 tabs 04/19/22 calcium carbonate 200 mg calcium 2,000 mg PO QID #0 tabs 05/12/22 (500 mg) chewable tablet (Tums) calcitriol 0.5 mcg capsule 1 mcg PO BID #360 caps 05/13/22 lorazepam 1 mg tablet (Ativan) 1 mg PO TID PRN anxiety #42 tabs 05/13/22 sertraline 150 mg capsule 150 mg PO DAILY #60 caps 05/13/22 trazodone 100 mg tablet 100 mg PO HS #90 tabs 05/13/22 magnesium gluconate 27 mg 1,000 mg PO TID #90 tabs 05/17/22 magnesium (500 mg) tablet Allergies Allergy/AdvReac Type Severity Reaction Status Date / Time codeine Allergy Intermediate Verified 05/18/22 18:12 General Stated Complaint: Nausea/Vomit/Diar ADRIANA: 3 Review of Systems All systems reviewed & are unremarkable except as noted in HPI and below Constitutional Constitutional: Reports lethargy Gastrointestinal Gastrointestinal: Reports as per HPI PFSH All Active Problems (Updated 05/27/22 @ 00:05 by HAMMAD WILEY) Abdominal pain (Acute) Back pain (Acute) Nausea and vomiting (Acute) Abnormal CT scan, kidney (Acute) Intrahepatic bile duct dilation (Acute) Common bile duct dilatation (Acute) Hypomagnesemia (Acute) Abdominal pain (Acute) Iatrogenic hypocalcemia (Acute) Multiple endocrine neoplasia type I (Chronic) Chronic constipation (Chronic) Primary hyperparathyroidism (Chronic) Depression (Chronic) Hypocalcemia (Chronic) Hypomagnesemia (Chronic) Depression (Chronic) Suicidal ideation (Acute) Elevated parathyroid hormone (Acute) Family history of coronary arteriosclerosis (Chronic) Father of PR at 50, mother had PR at 42 Severe anxiety with panic (Acute) Cellulitis (Acute) Medical History Anxiety Depression Family history of multiple endocrine neoplasia, type 1 Hyperlipidemia Hypocalcemia PTSD (post-traumatic stress disorder) Surgical History H/O parathyroidectomy Family History Mother Anxiety Asthma Depression Sister Anxiety Depression Father Cancer lung & stomach Depression Diabetes Hypertension MEN 1 (multiple endocrine neoplasia) Social History Smoking/Tobacco Use Status: Never Smoking risk assessment performed?: Yes Alcohol Intake: never Drug 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 Adopted: No Caregiver/Support person: No Foster care: No Household members: none Housing: house Number of Children: 0 Communication Needs: None Education Level: high school Do you need help understanding health information?: Never 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 and animals: Yes (Ally) Pets and animals: dog(s) Sexually active: No Do you think of yourself as: straight/heterosexual Current gender identity: male What is your relationship status?: How often do you talk on the phone with friends or family?: twice per week How often do you get together with friends or relatives?: never Do you belong to any clubs or organized social groups?: no Panel score (0-1 are the most socially isolated patients): 0 What type of physical activity do you participate in: walking Duration: 15-30 minutes/day Frequency: 5-6 times per week Maryam/Scientology: Mosque Special maryam needs: No Seatbelt use: always Helmet use: Yes Helmet use: always 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 Exam Const General: cooperative and no acute distress HENMT Mouth: mucous membranes dry Eyes Conjunctivae: normal conjunctivae Sclera: normal sclerae Neck Neck: trachea midline Resp Auscultation: clear to auscultation bilaterally, no rales, no rhonchi and no wheezes Cardio Rhythm: regular rhythm GI Palpation: soft, not firm, no guarding, no masses, not rigid and tender in the LUQ Skin General skin exam: no rashes or lesions noted Neuro General: patient alert, patient awake and tone normal Extrem General: no edema Psych Appearance: grossly normal Mental Status: mental status grossly normal Course Vital Signs Vital signs: Vital Signs Temperature 36.6 C 05/10/22 16:15 Pulse 141 H 05/10/22 16:15 Respiratory Rate 18 05/10/22 16:15 Blood Pressure 127/78 05/10/22 16:15 Pulse Oximetry 99 05/10/22 16:15 Temperature 36.6 C 05/10/22 16:15 Temperature Source Oral 05/10/22 16:15 Pulse 141 H 05/10/22 16:15 Respiratory Rate 18 05/10/22 16:15 Respiratory Effort 05/10/22 16:24 Blood Pressure 127/78 05/10/22 16:15 Blood Pressure Position Sitting 05/10/22 16:15 Pulse Oximetry 99 05/10/22 16:15 Oxygen Delivery Method Room Air 05/10/22 16:15 Oxygen Flow Rate 0 05/10/22 16:15 Pain Level 7 05/10/22 16:15 Comment 05/10/22 16:15 Lab/Test Results Lab/Test Results: Laboratory Tests Range/Units 05/10/22 05/10/22 16:45 16:45 WBC (4.4-10.8) 10^3/uL 15.69 H RBC (4.36-5.78) 10^6/uL 4.04 L Hgb (13.5-17.5) g/dL 12.3 L Hct (40.0-50.0) % 36.6 L MCV (80-95) fL 91 MCH (27.0-33.0) pg 30.4 MCHC (32.0-36.0) % 33.6 RDW (11.8-14.1) % 11.6 L Plt Count (130-400) 10^3/uL 315 MPV (8.0-11.0) fL 11.1 H Immature Gran % 0.3 Neutrophils % 73.8 Lymphocytes % 16.1 Monocytes % 7.5 Eosinophils % 2.2 Basophils % 0.1 Nucleated RBC % (0.0-0.3) % 0.0 Absolute Neutrophils (1.2-6.7) 10^3/uL 11.58 H Absolute Lymphocytes (1.2-3.4) 10^3/uL 2.53 Absolute Monocytes (0.1-0.8) 10^3/uL 1.18 H Absolute Eosinophils (0.0-0.7) 10^3/uL 0.35 Absolute Basophils (0.0-0.2) 10^3/uL 0.02 Sodium (136-145) mmol/L 136 Potassium (3.5-5.1) mmol/L 3.7 Chloride (98-107) mmol/L 96 L Carbon Dioxide (21.0-32.0) mmol/L 34.6 H Anion Gap (3-11) mmol/L 5.4 BUN (7-18) mg/dL 30 H Creatinine (0.70-1.30) mg/dL 2.4 H Est GFR (CKD-EPI 2020) (mL/min/1.73m2) 36.77 Glucose (74-106) mg/dL 97 Calcium (8.5-10.1) mg/dL 13.6 H* Magnesium (1.8-2.4) mg/dL 1.8 Total Bilirubin (0.2-1.0) mg/dL 0.4 AST (15-37) U/L 28 ALT (16-63) U/L 37 Alkaline Phosphatase (46-116) U/L 112 Troponin I (<or=60) ng/L < 50 Total Protein (6.4-8.2) g/dL 8.2 Albumin (3.4-5.0) g/dL 3.7 Lipase (73-393) U/L 43
[2022-05-10] MEDS: Normal Saline 1,000 ML 1000 ML IV (19:15)
--- NOTE | 2022-05-10 20:42 | HPE_ITS ---
Date of service: 05/10/22 Time of Service: 20:42 Assessment and Plan Assessment and plan (1) Hypercalcemia: Status: Acute Assessment and plan: This is a 26-year-old gentleman status post parathyroidectomy for primary hyperparathyroidism presenting with 2 days of fluid loss with bowel syndrome having nausea, vomiting and diarrhea resulting in acute dehydration with hypercalcemia. He would continue to try to take his Calcitrol while ill which may have worsened this problem. He will be admitted for IV hydration and close trending of labs to assure resolution of his acute kidney injury and hyperc alcemia. He is fairly asymptomatic. He is generally anxious and recently was hospitalized with depression and suicidal ideation with poor coping skills. He chronically is on methadone and psychiatric meds. He is a full code. (2) Acute dehydration: Start date: 05/10/22 Status: Acute Assessment and plan: IV hydration with normal saline and trend labs. (3) Viral syndrome: Start date: 05/08/22 Status: Acute Assessment and plan: Mostly GI symptoms with patient chronically constipated. Advance diet as tolerated and IV hydration to correct acute dehydrated state and hypercalcemia. Symptomatic care. (4) Hypomagnesemia: Status: Chronic Assessment and plan: IV magnesium supplementation as needed. (5) Primary hyperparathyroidism: Status: Chronic Assessment and plan: Now status post parathyroidectomy and hypocalcemia as a problem. Patient has inherited MEN 1. He is not coping well with his endocrinological diseases and close monitoring of medical problems. He does have some support at home with his mother and sister. History of Present Illness History of Present Illness Chief Complaint: Nausea and vomiting with diarrhea for 2 days Narrative: This is a 26-year-old gentleman who has had problems with hyperparathyroidism over the last several months now status post parathyroidectomy and having issues with hypocalcemia rather than hypercalcemia as a rule. He recently was hospitalized with suicidal ideation and was transferred to inpatient psychiatric care for 2 days with counseling but no change in medical therapy. His family does have MEN type I and II with his father having type I and sister type II with patient diagnosed with MEN type I. He has problems with chronic constipation and has large stool burden on imaging in ED. He is on chronic methadone as well. He presented with a 2-day history of nausea and vomiting with diarrhea and not keeping fluids down well but did continue trying to take his usual medications which included oral Calcitrol which may have caused his hypercalcemia to be exaggerated. In the ED was found to be hypercalcemic with level above 13 with some muscle twitching but no other significant sequela. Also he was found to be dry with his creatinine which is usually normal above 2 during the ED visit. He was given IV fluid resuscitation and first labs repeated did show trending of creatinine and calcium downward. He was feeling better with IV hydration but was having difficulty with IV access and maintenance. The patient's other chronic medical problems appear to be fairly stable. He was admitted for treatment of hypercalcemia with dehydration and this may take up to 72 hours for correction. His usual medications have been held while IV fluid resuscitation is ongoing. He is a full code. Review of Systems Narrative: 13 point review of systems otherwise unrevealing or stable. [facility] All Active Problems (Updated 05/11/22 @ 07:25 by Uday Whitaker) Acute dehydration (Acute) Hypovolemia (Acute) Chronic constipation (Chronic) Primary hyperparathyroidism (Chronic) Viral syndrome (Acute) Vomiting (Acute) Abdominal pain (Acute) Depression (Chronic) Chest wall pain (Acute) Chronic chest pain (Acute) Acute thoracic myofascial strain (Acute) Anemia (Chronic) Fatigue (Acute) Hypocalcemia (Chronic) Hypomagnesemia (Chronic) Pain, dental (Acute) Hypomagnesemia (Chronic) Depression (Chronic) Suicidal ideation (Acute) Elevated parathyroid hormone (Acute) Family history of coronary arteriosclerosis (Chronic) Father of [place] at 50, mother had [place] at 42 Severe anxiety with panic (Acute) Hypercalcemia (Acute) Cellulitis (Acute) Medical History Anxiety Depression Family history of multiple endocrine neoplasia, type 1 Hyperlipidemia Hypocalcemia PTSD (post-traumatic stress disorder) Surgical History H/O parathyroidectomy Family History Mother Anxiety Asthma Depression Sister Anxiety Depression Father Cancer lung & stomach Depression Diabetes Hypertension MEN 1 (multiple endocrine neoplasia) Social History Smoking/Tobacco Use Status: Never Smoking risk assessment performed?: Yes Alcohol Intake: never Drug 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 Adopted: No Caregiver/Support person: No Foster care: No Household members: none Housing: house Number of Children: 0 Communication Needs: None Education Level: high school Do you need help understanding health information?: Never 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 and animals: Yes (Ally) Pets and animals: dog(s) Sexually active: No Do you think of yourself as: straight/heterosexual Current gender identity: male What is your relationship status?: How often do you talk on the phone with friends or family?: twice per week How often do you get together with friends or relatives?: never Do you belong to any clubs or organized social groups?: no Panel score (0-1 are the most socially isolated patients): 0 What type of physical activity do you participate in: walking Duration: 15-30 minutes/day Frequency: 5-6 times per week Maryam/Roman Catholic: Gnosticist Special maryam needs: No Seatbelt use: always Helmet use: Yes Helmet use: always 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 Meds Allergies and Home Medications Allergies Allergy/AdvReac Type Severity Reaction Status Date / Time codeine Allergy Intermediate Verified 04/30/22 05:38 Home Medications Medication Instructions Recorded Confirmed Type methadone 10 mg/5 mL oral solution 110 mg PO QAM 11/16/21 05/10/22 History sennosides 8.6 mg tablet (senna) 1 tab PO DAILY 12/20/21 05/10/22 History docusate sodium 100 mg capsule 100 mg PO DAILY #60 caps 03/13/22 05/10/22 Rx (Colace) calcitriol 0.25 mcg capsule 0.25 mcg PO DAILY #14 caps 03/28/22 05/10/22 Rx magnesium gluconate 27 mg 27 mg PO BID #10 tabs 03/28/22 05/10/22 Rx magnesium (500 mg) tablet calcium carbonate 200 mg calcium 5,000 mg PO DIRECTED 04/16/22 05/10/22 History (500 mg) chewable tablet (Tums) buspirone 10 mg tablet 20 mg PO TID #180 tabs 04/19/22 05/10/22 Rx cyclobenzaprine 10 mg tablet 10 mg PO BID #180 tabs 04/19/22 05/10/22 Rx gabapentin 600 mg tablet 600 mg PO TID #270 tabs 04/19/22 05/10/22 Rx lorazepam 1 mg tablet (Ativan) 1 mg PO TID PRN anxiety #42 tabs 04/19/22 05/10/22 Rx trazodone 100 mg tablet 100 mg PO HS #90 tabs 04/19/22 05/10/22 Rx Exam Narrative Exam Narrative: General: Patient appears slightly older than stated age, alert and oriented x3 but flattened affect with fair eye contact. He is in no acute distress. He has a slowed speech with monotonous tone. HEENT: Normocephalic, eyes with pupils equal and react to light symmetrically, extraocular movement intact and sclera anicteric. Oropharynx with dry mucosa an d poor dentition with carious and missing teeth. Neck: Supple without JVD. Back: Stooped posture without CVA tenderness. Lungs: Clear to auscultation and percussion. Heart: Regular rate and rhythm with no murmurs gallops appreciated. Abdomen: Slightly obese contour, soft and no focalizing tenderness or guarding. No palpable hepatosplenomegaly. Bowel sounds positive but decreased in all quadrants. Genitalia/rectal: Exam deferred. Extremity: Without clubbing, cyanosis or pitting edema. Peripheral pulses intact. Skin: Normal color, warm and dry. Neuro: Cranial nerves II through XII grossly intact, no focalizing motor deficits. No tremor. Psych: Flattened affect with depressed mood. No abnormal thought processes. Remote and recent memory intact. Results Imaging Imaging Studies: CT ABDOMEN ? PELVIS W EXAM: ? CT ABDOMEN ? PELVIS W CLINICAL HISTORY: ? abdominal pain. ? TECHNIQUE:? Imaging Protocol: Axial computed tomography images with coronal and sagittal reformatted images were created and reviewed CONTRAST MATERIAL:? Intravenous: Omnipaque 100cc Oral: None COMPARISON:? CT CT ABDOMEN ? PELVIS W from 03/06/2022 FINDINGS: VISUALIZED LUNG BASES: No nodules nor pleural effusions evident.? ABDOMEN: There is no ascites. LIVER: There are no focal hepatic lesions evident.? Minimally dilated ducts are again noted in the left hepatic lobe. GALLBLADDER/BILIARY: No obvious gallbladder pathology.? CBD diameter is upper normal. PANCREAS: No evidence of pancreatic mass nor dilatation of the pancreatic duct.? SPLEEN: Spleen is not enlarged.? Small calcified splenic granulomas noted.? No significant intrasplenic lesions.? Splenic and portal veins are patent. ADRENALS: There are no significant adrenal masses. KIDNEYS:No cysts evident.? No solid renal masses.? No calculi nor hydronephrosis.. ABDOMINAL AORTA: Abdominal aorta is not enlarged. LYMPH NODES:There is no retroperitoneal nor paraaortic adenopathy. ABDOMINAL WALL: No evidence of significant anterior abdominal wall nor inguinal hernia. GI: Abundant fecal material in the colon but no distinct transition point.? There is no significant sigmoid diverticular disease. PELVIS:? GI: No evidence of appendicitis.No evidence of sigmoid diverticulitis. LYMPH NODES: There is no intrapelvic nor inguinal adenopathy. REPRODUCTIVE: Prostate not enlarged URINARY BLADDER: No calculi nor obvious masses evident OSSEOUS: No significant osseous lesions. IMPRESSION: 1. No significant acute findings in the abdomen pelvis. 2. Abundant fecal material is noted in the colon no bowel obstruction. 3. No ascites. Labs Result diagrams: 05/11/22 06:30 05/11/22 06:30 Labs: Laboratory Results - last 24 hr 05/10/22 05/10/22 16:45 16:45 WBC 15.69 H RBC 4.04 L Hgb 12.3 L Hct 36.6 L MCV 91 MCH 30.4 MCHC 33.6 RDW 11.6 L Plt Count 315 MPV 11.1 H Immature Gran % 0.3 Neutrophils % 73.8 Lymphocytes % 16.1 Monocytes % 7.5 Eosinophils % 2.2 Basophils % 0.1 Nucleated RBC % 0.0 Absolute Neutrophils 11.58 H Absolute Lymphocytes 2.53 Absolute Monocytes 1.18 H Absolute Eosinophils 0.35 Absolute Basophils 0.02 Sodium 136 Potassium 3.7 Chloride 96 L Carbon Dioxide 34.6 H Anion Gap 5.4 BUN 30 H Creatinine 2.4 H Est GFR (CKD-EPI 2020) 36.77 Glucose 97 Calcium 13.6 H* Magnesium 1.8 Total Bilirubin 0.4 AST 28 ALT 37 Alkaline Phosphatase 112 Troponin I < 50 Total Protein 8.2 Albumin 3.7 Lipase 43 Last Vital Signs Temp 36.6 C 05/10/22 16:15 Pulse 136 H 05/10/22 16:31 Resp 14 05/10/22 18:50 BP 149/94 H 05/10/22 16:31 Pulse Ox 99 05/10/22 16:15
[2022-05-10] MEDS: traZODone 100 MG TAB PO (22:02)
[2022-05-10] MEDS: LORazepam 1 MG TAB PO (22:26)
[2022-05-10 22:27] LABS: Calcium 12.3 mg/dL (8.5-10.1)
[2022-05-10] MEDS: Acetaminophen 325 MG TAB PO (22:27)
[2022-05-10] MEDS: Normal Saline Flush 10 ML SYR IVP ×2 (22:28→23:52)
[2022-05-10] MEDS: Enoxaparin 30 MG/0.3 ML SYR SC (22:28)
[2022-05-10] MEDS: Normal Saline 1,000 ML 150 ML IV (23:52)
[2022-05-11] VITALS (9 sets, daily range): BP systolic 106–124; BP diastolic 67–84; PULSE 79–140; RESP 16–21; TEMP 36.4–37.2; O2SAT 95–98
--- NOTE | 2022-05-11 | DI.CT_ITS ---
Exam(s) CT RENAL COLIC WO EXAM: CT RENAL COLIC WO CLINICAL HISTORY: back pain, dysuria. TECHNIQUE: Imaging Protocol: Axial computed tomography images with coronal and sagittal reformatted images were created and reviewed. CONTRAST MATERIAL: Noncontrast COMPARISON: CT CT ABDOMEN PELVIS W from 04/29/2022 FINDINGS: ABDOMEN: Lung Bases: Normal where visualized. Liver: Normal attenuation. No measurable mass. Gallbladder and biliary tract: No radiodense calculus or dilation. Pancreas: Normal density, no calcifications or inflammatory process. Spleen: Normal. Kidneys: Normal size, contour and axis. Tiny stone lower pole left kidney. No obstructive uropathy. No masses seen. Adrenal glands: No masses seen. Abdominal Aorta: Abdominal portion non-dilated. PELVIS: Bladder: Mild diffuse wall thickening.. No evidence of stones.No visible mass. Bowel: No obstruction or bowel wall thickening. Reproductive: Prostate normal size. Peritoneal cavity: Multiple mildly enlarged mesenteric lymph nodes and stranding in the mesentery. T hese were not present on the previous exam. Bones: Unremarkable for age.. IMPRESSION: Enlarged mesenteric lymph nodes and mesenteric stranding consistent with mesenteric adenitis. Mild diffuse bladder wall thickening. This could represent cystitis. RADIATION DOSE DELIVERED: 1,190.3mGy.cm Total DLP DATA REPOSITORY: All CT scans at this facility are submitted to the National Radiology Data Registry (NRDR) Dose Index Registry (DIR) with the [employer] (ACR). RADIATION OPTIMIZATION: All CT scans at this facility use at least one of these dose optimization te chniques: automated exposure control; mA and/or kV adjustment per patient size (includes targeted exa ms where dose is matched to clinical indication); or iterative reconstruction.
[2022-05-11] MEDS: Normal Saline 1,000 ML 150 ML IV ×2 (06:33→13:54)
[2022-05-11 06:43] LABS: HCT 30.4 % (40.0-50.0); HGB 10.1 g/dL (13.5-17.5); MCH 30.9 pg (27.0-33.0); MCHC 33.2 % (32.0-36.0); MCV 93 fL (80-95); MPV 11.1 fL (8.0-11.0); Platelet Count 243 10^3/uL (130-400); RBC 3.27 10^6/uL (4.36-5.78); RDW 11.8 % (11.8-14.1); RDW-SD 39.6 fL; WBC 14.13 10^3/uL (4.4-10.8)
[2022-05-11 06:55] LABS: ALT 24 U/L (16-63); AST 10 U/L (15-37); Albumin 2.8 g/dL (3.4-5.0); Alkaline Phosphatase 91 U/L (46-116); Anion Gap 1.3 mmol/L (3-11); BUN 28 mg/dL (7-18); Bilirubin, Total 0.5 mg/dL (0.2-1.0); CO2 31.7 mmol/L (21.0-32.0); CREATININE 2.1 mg/dL (0.70-1.30); Calcium 10.9 mg/dL (8.5-10.1); Chloride 101 mmol/L (98-107); Estimated GFR 43.16 (mL/min/1.73m2); Glucose 77 mg/dL (74-106); Magnesium 1.6 mg/dL (1.8-2.4); Potassium 4.1 mmol/L (3.5-5.1); Sodium 134 mmol/L (136-145); Total Protein 6.3 g/dL (6.4-8.2)
[2022-05-11] MEDS: busPIRone 5 MG TAB PO ×3 (08:14→19:32)
[2022-05-11] MEDS: busPIRone 15 MG TAB PO ×3 (08:14→19:32)
[2022-05-11] MEDS: Gabapentin 600 MG TAB PO ×3 (08:14→19:32)
[2022-05-11] MEDS: Cyclobenzaprine 10 MG TAB PO ×2 (08:14→19:32)
[2022-05-11 09:46] LABS: COVID-19 PCR Negative (Negative); Influenza A PCR Negative (Negative); Influenza B PCR Negative (Negative); RSV PCR Negative (Negative)
[2022-05-11 10:00] LABS: Source Nasopharynx
[2022-05-11] MEDS: Methadone Liquid 10 MG/ML 110 MG PO (10:11)
--- NOTE | 2022-05-11 11:08 | PDOC.CMIN ---
- If Service Date Differs Date of service: 05/11/22 Time of Service: 11:09 Care Management Initial Assess REASON FOR HOSPITALIZATION:: Hypercalcemia, acute dehydration
--- NOTE | 2022-05-11 12:44 | INITIAL_ITS ---
- If Service Date Differs Date of service: 05/11/22 Time of Service: 12:44 Care Management Initial Assess REASON FOR HOSPITALIZATION:: Hypercalemia, acute dehydration PAST MEDICAL HISTORY/PAST SURGICAL HISTORY:: Pedro Pablo reports recent surgery that removed most of his thyroid, shares that he has to take tums throughout the day to train the 1/2 half of thyoid he has left. Pedro Pablo shares calcium balance is a severe issue for him, and results in panic attacks. Medical History . Anxiety. Depression. Family history of multiple endocrine neoplasia, type 1. Hyperlipidemia. Hypocalcemia. PTSD (post-traumatic stress disorder). Surgical History . H/O parathyroidectomy PREVIOUS FUNCTIONAL STATUS/SOCIAL/FAMILY SUPPORTS:: Pedro Pablo resides locally, either with his mother in [place] or his sister in [facility]. He has a history of PTSD, anciety and depression as well as recent parathyroidectomy (tumor removal). He has had over 40 visits to the ED this year alone. He has a history of RINA (crack/cocaine, heroin) and has been sober for 9 months. He is also a and served in the [employer] from [id number], he has PTSD which presents in nightmares 2-3 times a week and limits sleep. He also has a TBI which occured in 2014. CURRENT FUNCTIONAL STATUS:: Pedro Pablo was lying in bed, watching [place] when CM met with him. He was pleasant in interaction and forthcoming with information, advocating for discharging home. Pedro Pablo reports history of TBI in 2014: untreated and did not apply for TBI services. [facility] and did not find this helpful. Thyroid removal in March has resulted in panic attacks, ongoing back pain and when calcium is low he reports his lips tingle. He is on 5000mg of Tums daily. Pedro Pablo reports having an mill platform supervisor at [facility] that he really needs to see but has been unable to get transport to appointments as his sister and mother work multimedia teacher and he does not drive; RCT discussed (may not be eligible due to car in household). Pedro Pablo attends NA group on Friday, which he finds helpful and attends regularly. Pedro Pablo reports Brendon Vivar his PCP prescribes short acting benzos for anxiety management which is successful if taken prior to attack, otherwise is not effective. CM provided psychoeducation central to intermission coordinator use of short acting benzos, addictiveness and negative cycle of increased anxiety when not taken; Pedro Pablo reports this was validating for his experience with the medication. Pedro Pablo states anxiety and panic attacks are almost immediate and feel like he is having a heart attack. He states he immediately goes to the floor, wrapped up in position, as they are so intense and unpredictable. He also reports almost constant back pain since his recent tumor/thyroid removal surgery in March. As well, Pedro Pablo outlines recent losses, losing his father in 2019, his aunt this year when she hung herself, and his Uncle who worked with him-running his Dad's business-who also recently of lung cancer. 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 He reports his TBI causes unpredictable seizures and is the reason he no longer drives. ADVANCE DIRECTIVES:: None on file. Has patient been provided with info about the portal/API?: Yes Did the patient sign up for the portal?: No CODE STATUS:: Full Code INSURANCE COVERAGE / FINANCIAL ISSUES:: Medicaid. [facility] CURRENT HOME/COMMUNITY SERVICES/EQUIPMENT:: Attends NA. Endocrinology at [facility]. PRIMARY CARE PHYSICIAN:: Brendon Vivar POTENTIAL DISCHARGE NEEDS:: RCT referral; [facility] referral. PATIENT/FAMILY EDUCATION NEEDS:: Review of discharge instructions, discuss Ask Me Three. ANTICIPATED BARRIERS TO DISCHARGE:: None identified. TRANSPORTATION:: Via private vehicle with family. PLAN:: Pedro Pablo is advocating for discharge. He will return to his sister, Maura's home in [facility] where he has been residing. Pedro Pablo will have a new referral to [facility] to determine eligiblity for transport support to attend mill platform supervisor appointments at [facility]. He will transport via private vehicle with his sister.
[2022-05-11 14:49] LABS: Anion Gap 1.8 mmol/L (3-11); BUN 25 mg/dL (7-18); CO2 33.2 mmol/L (21.0-32.0); CREATININE 2.2 mg/dL (0.70-1.30); Calcium 10.7 mg/dL (8.5-10.1); Chloride 102 mmol/L (98-107); Estimated GFR 40.82 (mL/min/1.73m2); Glucose 87 mg/dL (74-106); Potassium 3.9 mmol/L (3.5-5.1); Sodium 137 mmol/L (136-145)
--- NOTE | 2022-05-11 16:26 | W.PM.PROGNOT ---
Date of Service Date of service: 05/11/22 Time of Service: 16:26 Assessment and Plan Assessment and plan (1) Acute dehydration: Status: Acute Assessment and plan: Improving. Continue IV fluid hydration. We will change his normal saline over to LR and continue at a rate of 100 mL/h. Encourage oral intake. Recheck BMP in the morning. Professional time spent interviewing and examining patient, discussion of goals of care with hospital team (care management, nursing and consulting professionals) was 30 minutes. (2) Azotemia: Status: Acute Assessment and plan: Improving but not resolved. (3) Dysuria: Status: Acute Assessment and plan: We will check urinalysis and urine culture as well as renal CT (4) Leukocytosis, unspecified: Status: Acute Assessment and plan: Work-up for possible UTI (5) Hypercalcemia: Status: Acute Assessment and plan: Probably secondary to continued intake of calcitriol and calcium carbonate in the setting of acute renal and deficiency hydration. Now has been corrected with IV fluid high he should. (6) Multiple endocrine neoplasia type I: Status: Acute Assessment and plan: We will resume his medications with his Trial in the morning. Subjective Subjective Interval history since last seen: Pedro Pablo has hx of MEN I and is s/p parathyroidectomy and usually has to take calcitriol to prevent hypocalcemia however he developed severe nausea and vomiting on night and into Friday morning and continued through the day on Friday and presented to the hospital w/ dehydration and FLORESITA and hypercalcemia. He was put on iv fluids overnight and antiemetics. He is feeling better from this and has tolerated diet today. He was wanting to return home this afternoon however repeat labs this afternoon shows persistently elevated BUN and creatinine. BUN last night was elevated at 30 creatinine 2.4 came down to BUN of 28 creatinine 2.1 this morning but this afternoon remains persistently elevated with a BUN of 25 creatinine 2.2. Calcium is now corrected down to 10.7. Patient has had no further nausea or vomiting but does complain of dysuria and low back pain but no CVA tenderness. He is afebrile. Does have an elevated white count of 14,000 this been persistent this morning. No urinalysis was performed on admission. We ordered a stat urinalysis. We will get a renal CT of his abdomen to rule out nephrolithiasis. I told Pedro Pablo that he needs to remain in the hospital overnight while we continue to give him IV fluid hydration and treat his dysuria. I would like to see an improvement in his BUN and creatinine. Overall clinically he has improved and that he is been tolerating a diet he has drank over a liter of fluid this afternoon and his urine output is picked up considerably. Urine output since midnight last night has been 2500. Oral intake was 1100 mL today. Exam Narrative Exam Narrative: Pedro Pablo does not appear to be toxic. He is alert and oriented person place time circumstance Lungs are clear to auscultation Heart is regular rate and rhythm no murmur rub or gallop Some minimal lower back tenderness over the lumbosacral joint but there is no CVA tenderness. Abdomen is obese soft nontender no guarding or rebound tenderness he has normal bowel sounds. He has some mild suprapubic tenderness. Objective Last Vital Signs Temp 36.9 C 05/11/22 11:07 Pulse 101 H 05/11/22 15:36 Resp 16 05/11/22 11:07 BP 120/78 05/11/22 11:07 Pulse Ox 96 05/11/22 11:07 Laboratory Results - last 24 hr 05/10/22 05/10/22 05/10/22 16:45 16:45 22:08 WBC 15.69 H RBC 4.04 L Hgb 12.3 L Hct 36.6 L MCV 91 MCH 30.4 MCHC 33.6 RDW 11.6 L Plt Count 315 MPV 11.1 H Immature Gran % 0.3 Neutrophils % 73.8 Lymphocytes % 16.1 Monocytes % 7.5 Eosinophils % 2.2 Basophils % 0.1 Nucleated RBC % 0.0 Absolute Neutrophils 11.58 H Absolute Lymphocytes 2.53 Absolute Monocytes 1.18 H Absolute Eosinophils 0.35 Absolute Basophils 0.02 Sodium 136 Potassium 3.7 Chloride 96 L Carbon Dioxide 34.6 H Anion Gap 5.4 BUN 30 H Creatinine 2.4 H Est GFR (CKD-EPI 2020) 36.77 Glucose 97 Calcium 13.6 H* 12.3 H* Phosphorus 3.0 Magnesium 1.8 Total Bilirubin 0.4 AST 28 ALT 37 Alkaline Phosphatase 112 Troponin I < 50 Total Protein 8.2 Albumin 3.7 Lipase 43 COVID-19 Source SARS-CoV-2 (PCR) Influenza Type A (PCR) Influenza Type B (PCR) RSV (PCR) 05/11/22 05/11/22 05/11/22 06:30 06:30 08:50 WBC 14.13 H RBC 3.27 L Hgb 10.1 L D Hct 30.4 L MCV 93 MCH 30.9 MCHC 33.2 RDW 11.8 Plt Count 243 MPV 11.1 H Immature Gran % Neutrophils % Lymphocytes % Monocytes % Eosinophils % Basophils % Nucleated RBC % Absolute Neutrophils Absolute Lymphocytes Absolute Monocytes Absolute Eosinophils Absolute Basophils Sodium 134 L Potassium 4.1 Chloride 101 Carbon Dioxide 31.7 Anion Gap 1.3 L BUN 28 H Creatinine 2.1 H Est GFR (CKD-EPI 2020) 43.16 Glucose 77 Calcium 10.9 H Phosphorus Magnesium 1.6 L Total Bilirubin 0.5 AST 10 L ALT 24 Alkaline Phosphatase 91 Troponin I Total Protein 6.3 L Albumin 2.8 L Lipase COVID-19 Source Nasopharynx SARS-CoV-2 (PCR) Negative Influenza Type A (PCR) Negative Influenza Type B (PCR) Negative RSV (PCR) Negative 05/11/22 14:35 WBC RBC Hgb Hct MCV MCH MCHC RDW Plt Count MPV Immature Gran % Neutrophils % Lymphocytes % Monocytes % Eosinophils % Basophils % Nucleated RBC % Absolute Neutrophils Absolute Lymphocytes Absolute Monocytes Absolute Eosinophils Absolute Basophils Sodium 137 Potassium 3.9 Chloride 102 Carbon Dioxide 33.2 H Anion Gap 1.8 L BUN 25 H Creatinine 2.2 H Est GFR (CKD-EPI 2020) 40.82 Glucose 87 Calcium 10.7 H Phosphorus Magnesium Total Bilirubin AST ALT Alkaline Phosphatase Troponin I Total Protein Albumin Lipase COVID-19 Source SARS-CoV-2 (PCR) Influenza Type A (PCR) Influenza Type B (PCR) RSV (PCR)
[2022-05-11 16:46] LABS: Bilirubin Negative (Negative); Blood Negative (Negative); Clarity Clear (Clear); Glucose Negative (Negative); Ketones Negative (Negative); Leukocyte Esterase Negative (Negative); Nitrite Negative (Negative); Specific Gravity 1.015 (1.005-1.025); Urobilinogen 0.2 EU/dL (Up TO 0.2)
[2022-05-11] MEDS: Normal Saline Flush 10 ML SYR IVP (16:50)
[2022-05-11] MEDS: Acetaminophen 325 MG TAB PO (16:50)
[2022-05-11] MEDS: LORazepam 1 MG TAB PO (17:31)
[2022-05-11] MEDS: Phenazopyridine 200 MG TAB PO (17:32)
[2022-05-11] MEDS: Lactated Ringers 1,000 ML 85 ML IV (17:32)
--- NOTE | 2022-05-11 17:42 | DI.VRAD_ITS ---
PROCEDURE INFORMATION: Exam: CT Abdomen And Pelvis Without Contrast Exam date and time: 05/11/2022 4:35 PM Age: 26 years old Clinical indication: Other: Back pain, dyruria TECHNIQUE: Imaging protocol: Computed tomography of the abdomen and pelvis without contrast. COMPARISON: CT ABDOMEN PELVIS W 04/29/2022 8:37 PM FINDINGS: Liver: Mild hepatomegaly. Gallbladder and bile ducts: Probable gallbladder debris. Pancreas: Normal. No ductal dilation. Spleen: Normal. No splenomegaly. Adrenal glands: Normal. No mass. Kidneys and ureters: Normal. No hydronephrosis. Stomach and bowel: Unremarkable. No obstruction. No mucosal thickening. Appendix: No evidence of appendicitis. Intraperitoneal space: See Lymph nodes finding. Vasculature: Unremarkable. No abdominal aortic aneurysm. Lymph nodes: Moderate to severe mesenteric adenopathy. There is some soft tissue stranding in the mesenteric with minimal fluid within the mesenteric sleeves. Urinary bladder: The bladder is not well distended, however allowing for this there appears to be mild bladder thickening. Reproductive: Unremarkable as visualized. Bones/joints: Unremarkable. No acute fracture. Soft tissues: Unremarkable. Other findings: Moderate fecal retention pattern. Respiratory motion noted. IMPRESSION: Suspect mesenteric adenitis. Mild associated cystitis is not excludable. Dictated and Authenticated by: Ramona Moura MD. Ordering:[facility] Candy Ferris MD
[2022-05-11] MEDS: Phenazopyridine 100 MG TAB PO (19:32)
[2022-05-11] MEDS: traZODone 100 MG TAB PO (21:59)
[2022-05-12 03:07] VITALS: BP 105/66; PULSE 86; RESP 19; TEMP 36.5; O2SAT 95
[2022-05-12] MEDS: Lactated Ringers 1,000 ML 85 ML IV (04:32)
[2022-05-12 06:48] VITALS: BP 109/72; PULSE 94; RESP 16; TEMP 36.4; O2SAT 95
[2022-05-12 07:40] VITALS: PULSE 85
[2022-05-12] MEDS: Gabapentin 600 MG TAB PO ×2 (07:42→13:32)
[2022-05-12] MEDS: Phenazopyridine 100 MG TAB PO ×2 (07:42→13:32)
[2022-05-12] MEDS: busPIRone 5 MG TAB PO ×2 (07:42→13:33)
[2022-05-12] MEDS: busPIRone 15 MG TAB PO ×2 (07:43→13:33)
[2022-05-12] MEDS: Cyclobenzaprine 10 MG TAB PO (07:43)
[2022-05-12] MEDS: Methadone Liquid 10 MG/ML 110 MG PO (09:26)
--- NOTE | 2022-05-12 09:36 | NUR.NOTE ---
Nursing Note: ICU nurse roxanna notified of tele D/C at 09:35
[2022-05-12 12:00] LABS: Abs Immature Grans 0.04 10^3/uL (0.0-0.06); Absolute Basophil Count 0.01 10^3/uL (0.0-0.2); Absolute Eosinophil Count 0.46 10^3/uL (0.0-0.7); Absolute Lymphocyte Count 1.66 10^3/uL (1.2-3.4); Absolute Monocyte Count 0.89 10^3/uL (0.1-0.8); Absolute Neutrophil Count 6.75 10^3/uL (1.2-6.7); Basophils % 0.1; Eosinophils % 4.7; HCT 31.8 % (40.0-50.0); HGB 10.3 g/dL (13.5-17.5); Immature Grans % 0.4; Lymphocytes % 16.9; MCH 30.3 pg (27.0-33.0); MCHC 32.4 % (32.0-36.0); MCV 94 fL (80-95); MPV 11.3 fL (8.0-11.0); Monocytes % 9.1; Neutrophils % 68.8; Platelet Count 238 10^3/uL (130-400); RDW 11.8 % (11.8-14.1); RDW-SD 40.3 fL; WBC 9.81 10^3/uL (4.4-10.8)
[2022-05-12 12:08] LABS: Anion Gap 5.2 mmol/L (3-11); BUN 16 mg/dL (7-18); CO2 32.8 mmol/L (21.0-32.0); CREATININE 1.9 mg/dL (0.70-1.30); Chloride 102 mmol/L (98-107); Estimated GFR 48.67 (mL/min/1.73m2); Glucose 93 mg/dL (74-106); Potassium 3.4 mmol/L (3.5-5.1); Sodium 140 mmol/L (136-145)
--- NOTE | 2022-05-12 12:49 | PDOC.CMDIS ---
- If Service Date Differs Date of service: 05/12/22 Time of Service: 12:49 LACE Index Scoring Tool - Questions: Length of Stay (in days): 2 Acuity (Admit via E.D.?): Yes E.D. Visits: 44 - Answers: Total Score: 9 Risk of Readmission: Low Risk Care Management Discharge Reason for Hospitalization: Hypercalemia, acute dehydration Discharge Plan: Referral faxed to [facility] to follow up with barriers of care; transporation to medical appointments including endocrinology follow up at [facility] [place]. Pedro Pablo will discharge to his sister's home in [facility], she will transport via private vehicle. He will follow up with community providers and resume NA support group. Patient/Family Education Needs: Review discharge instructions, discuss Ask Me Three.
--- NOTE | 2022-05-12 13:29 | W.PM.DS.N ---
Date of service: 05/12/22 Time of Service: 13:29 DS: Diagnosis Discharge Diagnosis (1) Acute dehydration: Status: Resolved (2) Azotemia: Status: Acute Asessment and Plan: Improving. Patient is encouraged to continue drinking couple liters of fluid per day and recheck a BMP in 5 days. (3) Dysuria: Status: Resolved (4) Leukocytosis, unspecified: Status: Resolved Asessment and Plan: Probably secondary to mesenteric lymphadenitis (5) Hypercalcemia: Status: Resolved Asessment and Plan: Secondary to dehydration causing FLORESITA. Patient's calcitriol and calcium carbonate have been resumed. Repeat BMP next week (6) Multiple endocrine neoplasia type I: Status: Chronic Discharge Plan Disposition Patient Disposition: Home Condition: Good Discharge Details Reason For Visit: hypercalcemia, acute dehydration Admit Date/Time: 05/10/22 19:04 Admit Provider: Uday Whitaker Attending Provider: Uday Whitaker [facility] [place] [facility] Hospital Course: 26-year-old male status post parathyroidectomy for hyperparathyroidism, history of multiple endocrine neoplasia type I present with GI symptoms including nausea vomiting and diarrhea and presented with acute dehydration/FLORESITA and hypercalcemia. Normally he suffers from hypocalcemia secondary to his parathyroidectomy and takes calcitriol as well as 10 g of Tums per day. On admission his calcium level was 13.6 and his BUN was 30 and creatinine 2.4. He was placed on IV fluid hydration overnight and his calcium level came down to 10.9 but his BUN/creatinine remain elevated at 28 and 2.1. On the day after admission he was complaining of dysuria and low back pain. Renal CT was ordered along with urinalysis. Renal CT showed evidence of mesenteric lymphadenitis mild diffuse bladder wall thickening but no hydronephrosis and a small left lower pole stone but no obstruction. Urinalysis was unremarkable. Specifically it was negative for protein ketones blood nitrites bilirubin or leukocyte Estrace. Patient was started on Pyridium which improved his dysuria. He remained on IV fluid hydration for another day and then was discharged the following morning on 05/12/2022 after repeat labs showed improvement in his renal dysfunction. BUN was down to 16 creatinine 1.9. Patient was eating and drinking well no nausea or vomiting. His calcium level is down to 10.0. He was restarted on his calcitriol. Of note his home medication dose was incorrectly entered as calcitriol 0.25 mcg daily. After I spoke with [facility] and spoke with the endocrinology fellow on-call he reviewed the patient's chart and indicated that he supposed to be taking calcitriol 1 mcg twice a day. When I asked the patient about that he confirmed that he takes for tablets of 0.25 mcg twice a day. Upon discharge I did reduce his daily dose of Tums down to 8 g/day but kept his calcitriol dose the same. He will get a repeat BMP in 5 days. At the time of his discharge home, his urine culture was pending. However at the time of this dictation preliminary report on his urine culture shows no growth. Nevertheless the patient was given a one-time dose of fosfomycin. His dysuria had resolved at the time of his discharge home. Patient's to [place] with [place] [facility] [place] 2 [place] 4 [place]. Home Meds and New Rx's Prescriptions: Continued buspirone 10 mg tablet 20 mg PO TID Qty: 180 11RF cyclobenzaprine 10 mg tablet 10 mg PO BID Qty: 180 3RF gabapentin 600 mg tablet 600 mg PO TID Qty: 270 3RF trazodone 100 mg tablet 100 mg PO HS Qty: 90 3RF lorazepam [Ativan] 1 mg tablet 1 mg PO TID PRN (Reason: anxiety) Qty: 42 0RF methadone 10 mg/5 mL solution 110 mg PO QAM magnesium gluconate 27 mg magnesium (500 mg) tablet 27 mg PO BID Qty: 10 0RF sennosides [senna] 8.6 mg tablet 1 tab PO DAILY Label Comments: TAKE TWO TABLETS BY MOUTH AT BEDTIME docusate sodium [Colace] 100 mg capsule 100 mg PO DAILY Qty: 60 0RF Changed calcium carbonate [Tums] 200 mg calcium (500 mg) Tablet,Chewable 2,000 mg PO QID Qty: 0 0RF calcitriol 0.25 mcg capsule 1 mcg PO BID Qty: 14 0RF Discharge Instructions Instructions: Hypercalcemia (DC) Additional Instructions: You were treated for hypercalcemia (high calcium) probably caused by your acute kidney abnormality brought on by your dehydration. Your kidney function is improving but not yet back to normal. Continue to rehydrate w/ drinking water and electrolyte replacement fluids such as Gatorade. Get follow up lab work in 5 days to recheck your kidnye function and calcium and magnesium levels. We will make referral to [facility] [place]. You should follow up w/ them and they should be adjusting your calcium and vitamin D supplements. Stand Alone Forms: Nursing Discharge Form Referrals: [place]OCR[place]OLOGY,[facility] [place] - (patient needs follow up of his MEN type I and hypocalcemia/hypercalcemia in the next 2 to 4 weeks. We will call you with appointment.) Brendon Vivar DO [Primary Care Provider] - (Please call Friday to make a follow up appointment for 1-2 weeks) Activity:: Activity as Tolerated Equipment/Supplies:: No Equipment Needed Diet:: Normal Diet Discharge Orders Discharge Orders: Discharge Order (Routine); Ordered 05/12/22 Ordered By: Barrington Gupta Other Ambulatory Orders: Basic Metabolic Panel (Routine) Timeframe: 3 Days Facility: [facility] - Location: Laboratory Outpatient - [facility] Ordered By: Barrington Gupta Ionized Calcium (Routine) Timeframe: 5 Days Facility: [facility] - Location: Laboratory Nonpatient Ordered By: Barrington Gupta Magnesium (Routine) Timeframe: 5 Days Facility: [facility] - Location: Laboratory Outpatient - [facility] Ordered By: Barrington Gupta Discharge Data Discharge Date/Time-TO BE ENTERED AT DEPARTURE: 05/12/22 14:12 DS: Summary Time Spent with Patient providing and/or coordinating discharge services: Less than 30 minutes Status at Discharge Functional status at discharge: independent ambulation Overall status at discharge: patient is progressing back to baseline Mental Status: mental status grossly normal Speech and Movement: speech and movement normal Mood: congruent mood Affect: normal affect Exam Psych Mental Status: mental status grossly normal Speech and Movement: speech and movement normal Mood: congruent mood Affect: normal affect DS: Data Vitals/I&O Vitals and I&O: Vital Signs Temperature 36.4 C L 05/12/22 06:48 Temperature Source Tympanic 05/12/22 06:48 Pulse 85 05/12/22 07:40 Pulse Rhythm Regular 05/12/22 07:43 Pulse 106 H 05/10/22 18:50 Respiratory Rate 16 05/12/22 06:48 Respiratory Effort 05/12/22 07:43 Respiratory Depth Normal 05/12/22 07:43 Respiratory Pattern Normal 05/12/22 07:43 Blood Pressure 109/72 05/12/22 06:48 Blood Pressure Mean 107 05/10/22 16:31 Blood Pressure Position Sitting 05/10/22 16:15 Pulse Oximetry 95 05/12/22 06:48 Oxygen Delivery Method Room Air 05/12/22 06:48 Oxygen Flow Rate 0 05/12/22 06:48 Pain Level 0 05/12/22 03:07 Comment 05/10/22 23:00 Intake & Output 05/11/22 05/12/22 05/12/22 23:59 11:59 23:59 Intake Total 3145 / 4645 935 / 935 Output Total 2330 / 3280 1500 / 1500 Balance 815 / 1365 -565 / -565 Weight 100.4 kg Intake: IV 2045 / 3545 935 / 935 Oral 1100 / 1100 Output: Urine 2330 / 3280 1500 / 1500 Other: Urine Color Godfrey Godfrey Urine Appearance Clear Clear Urine Odor Normal Normal Voiding Methods Toilet Toilet Data Completed and Pending Labs on day of discharge: Labs from last 24 hours 05/12/22 05/12/22 05/11/22 11:44 11:44 16:00 WBC 9.81 RBC 3.40 L Hgb 10.3 L Hct 31.8 L MCV 94 MCH 30.3 MCHC 32.4 RDW 11.8 Plt Count 238 MPV 11.3 H Immature Gran % 0.4 Neutrophils % 68.8 Lymphocytes % 16.9 Monocytes % 9.1 Eosinophils % 4.7 Basophils % 0.1 Nucleated RBC % 0.0 Absolute Neutrophils 6.75 H Absolute Lymphocytes 1.66 Absolute Monocytes 0.89 H Absolute Eosinophils 0.46 Absolute Basophils 0.01 Sodium 140 Potassium 3.4 L Chloride 102 Carbon Dioxide 32.8 H Anion Gap 5.2 BUN 16 Creatinine 1.9 H Est GFR (CKD-EPI 2020) 48.67 Glucose 93 Calcium 10.0 Urine Color Yellow Urine Clarity Clear Urine pH 7.0 Ur Specific [place] 1.015 Urine Protein Negative Urine Ketones Negative Urine Blood Negative Urine Nitrite Negative Urine Bilirubin Negative Urine Urobilinogen 0.2 Ur Leukocyte Esterase Negative Urine Glucose Negative 05/11/22 14:35 WBC RBC Hgb Hct MCV MCH MCHC RDW Plt Count MPV Immature Gran % Neutrophils % Lymphocytes % Monocytes % Eosinophils % Basophils % Nucleated RBC % Absolute Neutrophils Absolute Lymphocytes Absolute Monocytes Absolute Eosinophils Absolute Basophils Sodium 137 Potassium 3.9 Chloride 102 Carbon Dioxide 33.2 H Anion Gap 1.8 L BUN 25 H Creatinine 2.2 H Est GFR (CKD-EPI 2020) 40.82 Glucose 87 Calcium 10.7 H Urine Color Urine Clarity Urine pH Ur Specific [place] Urine Protein Urine Ketones Urine Blood Urine Nitrite Urine Bilirubin Urine Urobilinogen Ur Leukocyte Esterase Urine Glucose 05/11/22 16:00 Urine - Voided Urine Culture - Pending Preliminary micro results at discharge 05/11/22 16:00 Urine Culture - Pending Urine - Voided PFSH All Active Problems (Updated 05/12/22 @ 18:01 by Barrington Gupta MD) Multiple endocrine neoplasia type I (Chronic) Azotemia (Acute) Hypovolemia (Acute) Chronic constipation (Chronic) Primary hyperparathyroidism (Chronic) Viral syndrome (Acute) Vomiting (Acute) Abdominal pain (Acute) Depression (Chronic) Chest wall pain (Acute) Chronic chest pain (Acute) Acute thoracic myofascial strain (Acute) Anemia (Chronic) Fatigue (Acute) Hypocalcemia (Chronic) Hypomagnesemia (Chronic) Pain, dental (Acute) Hypomagnesemia (Chronic) Depression (Chronic) Suicidal ideation (Acute) Elevated parathyroid hormone (Acute) Family history of coronary arteriosclerosis (Chronic) Father of MA at 50, mother had MA at 42 Severe anxiety with panic (Acute) Cellulitis (Acute) Medical History Anxiety Depression Family history of multiple endocrine neoplasia, type 1 Hyperlipidemia Hypocalcemia PTSD (post-traumatic stress disorder) Surgical History H/O parathyroidectomy Family History Mother Anxiety Asthma Depression Sister Anxiety Depression Father Cancer lung & stomach Depression Diabetes Hypertension MEN 1 (multiple endocrine neoplasia) Social History Smoking/Tobacco Use Status: Never Smoking risk assessment performed?: Yes Alcohol Intake: never Drug 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 Adopted: No Caregiver/Support person: No Foster care: No Household members: none Housing: house Number of Children: 0 Communication Needs: None Education Level: high school Do you need help understanding health information?: Never 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 and animals: Yes (Ally) Pets and animals: dog(s) Sexually active: No Do you think of yourself as: straight/heterosexual Current gender identity: male What is your relationship status?: How often do you talk on the phone with friends or family?: twice per week How often do you get together with friends or relatives?: never Do you belong to any clubs or organized social groups?: no Panel score (0-1 are the most socially isolated patients): 0 What type of physical activity do you participate in: walking Duration: 15-30 minutes/day Frequency: 5-6 times per week Maryam/Adventism: Catholic Special maryam needs: No Seatbelt use: always Helmet use: Yes Helmet use: always Drive 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 otr flatbed company truck 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
[2022-05-12 13:30] VITALS: BP 114/73; PULSE 89; RESP 18; TEMP 36.4; O2SAT 95
[2022-05-12] MEDS: LORazepam 1 MG TAB PO (13:33)
== END 2022-05-12 14:12 | disposition home or self-care (01) | DRG 641 ==
LOC: ER 19:11 → MS 21:25
PROVIDERS: Internal Medicine; Admitting Provider Family Medicine; Emergency Provider Student in an Organized Health Care Education/Training Program; PCP Family Medicine; Visit Provider Family Medicine
DX: E83.52 Hypercalcemia (principal); F11.20 Opioid dependence, uncomplicated; E86.0 Dehydration; F32.A Depression, unspecified; E78.5 Hyperlipidemia, unspecified; F43.10 Post-traumatic stress disorder, unspecified; Z79.899 Other long term (current) drug therapy; E89.2 Postprocedural hypoparathyroidism; R00.0 Tachycardia, unspecified; K59.09 Other constipation; G89.29 Other chronic pain; R07.9 Chest pain, unspecified; D64.9 Anemia, unspecified; F41.0 Panic disorder [episodic paroxysmal anxiety]; E31.21 Multiple endocrine neoplasia [MEN] type I; E83.51 Hypocalcemia; D72.829 Elevated white blood cell count, unspecified; R30.0 Dysuria
CPT/HCPCS: 36415; 80048; 80053; 83690; 85027; 87637; 93005; 96361; 96374; 96375; 99285; 74176; 81003; 82310; 83735; 84100; 84484; 85025; 87086; 93010; 99223; 99232; 99238; J0780; J1650

== ENCOUNTER 2022-05-14 07:10 | Emergency (ER) | payer MEDICAID, SELFPAY ==
[2022-05-14] VITALS (7 sets, daily range): BP systolic 122–131; BP diastolic 78–83; PULSE 87–151; RESP 10–30; TEMP 36.8; O2SAT 91–98
[2022-05-14] MEDS: Normal Saline 1,000 ML 1000 ML IV (07:35)
[2022-05-14 08:03] LABS: Abs Immature Grans 0.13 10^3/uL (0.0-0.06); Absolute Basophil Count 0.03 10^3/uL (0.0-0.2); Absolute Eosinophil Count 0.47 10^3/uL (0.0-0.7); Absolute Lymphocyte Count 2.14 10^3/uL (1.2-3.4); Absolute Monocyte Count 1.02 10^3/uL (0.1-0.8); Absolute Neutrophil Count 11.25 10^3/uL (1.2-6.7); Basophils % 0.2; Eosinophils % 3.1; HGB 12.2 g/dL (13.5-17.5); Immature Grans % 0.9; Lymphocytes % 14.2; MCH 30.7 pg (27.0-33.0); MCHC 33.9 % (32.0-36.0); MCV 91 fL (80-95); MPV 11.4 fL (8.0-11.0); Monocytes % 6.8; Neutrophils % 74.8; Platelet Count 306 10^3/uL (130-400); RBC 3.97 10^6/uL (4.36-5.78); RDW 11.4 % (11.8-14.1); WBC 15.04 10^3/uL (4.4-10.8)
--- NOTE | 2022-05-14 08:03 | W.ED.GENAD ---
Discharge Plan Disposition Patient Disposition: Home Condition: Good Discharge Details Clinical Impression: Hypomagnesemia, Vomiting, Abdominal pain Primary Care Provider: Brendon Vivar ED Provider: Richy Eagle Home Meds and New Rx's Prescriptions: No Action cyclobenzaprine 10 mg tablet 10 mg PO BID Qty: 180 3RF gabapentin 600 mg tablet 600 mg PO TID Qty: 270 3RF calcitriol 0.5 mcg capsule 1 mcg PO BID Qty: 360 3RF sertraline 150 mg capsule 150 mg PO DAILY Qty: 60 0RF trazodone 100 mg tablet 100 mg PO HS Qty: 90 3RF lorazepam [Ativan] 1 mg tablet 1 mg PO TID PRN (Reason: anxiety) Qty: 42 0RF magnesium gluconate 27 mg magnesium (500 mg) tablet 27 mg PO TID methadone 10 mg/5 mL solution 110 mg PO QAM sennosides [senna] 8.6 mg tablet 1 tab PO DAILY Label Comments: TAKE TWO TABLETS BY MOUTH AT BEDTIME docusate sodium [Colace] 100 mg capsule 100 mg PO DAILY Qty: 60 0RF calcium carbonate [Tums] 200 mg calcium (500 mg) Tablet,Chewable 2,000 mg PO QID Qty: 0 0RF Discharge Instructions Instructions: Abdominal Pain (ED), Hypomagnesemia (ED) Additional Instructions: At this time your electrolytes are slightly off but they have been corrected. You have been given supplemental potassium and magnesium. Please continue to take your home medications as needed/directed. If you notice any worsening of your symptoms, or any new symptoms such as vomiting, diarrhea, fever, chills, shortness of breath, chest pain, numbness, weakness, or fainting , please return immediately to the emergency department for reevaluation. Please follow up with your primary care provider as soon as possible for reassessment and reevaluation. As always, it was a pleasure participating in your medical care today. Referrals: Brendon Vivar DO [Primary Care Provider] - Medical Decision Making This is a 26-year-old male with a past medical history significant for anxiety, high cholesterol, men type I, multiple electrolyte abnormalities with subsequent [place]ide[place] on [place]26/2022 [place] [facility] [place] PTSD, and multiple subsequent visits here in the emergency department for highly fluctuant electrolyte levels as well as chronic abdominal pain. He presents today for abdominal pain and vomiting. Patient states that last night he was nauseous and began vomiting throughout the night. He was not able to keep any of his medications down this morning. He admits to achiness in the epigastric region. He states he otherwise has been taking his medications as directed. Denies any blood. No other sick contacts. Exam demonstrates dry mucous membranes, no abdominal tenderness, no signs of surgical abdomen whatsoever. Negative Chvostek and Trousseau sign. Concern that symptoms are consistent with his chronic abdominal pain secondary to electrolyte abnormalities, however pancreatitis is also on the differential. No pain or McBurney's point, negative Cedillo sign. We will rehydrate, treat his electrolyte abnormalities given antiemetics and reassess. No indication for emergent CT imaging at this time clinically. 8:58 AM On reassessment patient is feeling much better. He feels well and has been able to tolerate p.o. Electrolytes demonstrate a minimally low potassium at 3.4, calcium is normal, and magnesium is low at 1.3. Lipase normal. Patient feels well. Repeat exam shows no evidence of an acute surgical abdomen. We will finish the supplemental 2 g of magnesium and 10 mill equivalents of potassium IV, as well as a oral GI cocktail and Tums and then the patient will be able to be discharged. I have extensively reviewed the treatment plan and discharge instructions with the patient. I have addressed all patient concerns at this time. The patient was made aware of what symptoms to monitor for that would warrant a return to the emergency department. Discussed the plan with the patient, they demonstrate verbal understanding and agreement with our assessment and plan at this time. The documentation in this chart was dictated using [email or web address] dictation software. Please excuse any dictation errors. Sign Out No HPI General Date/Time Provider Initiated Documentation: 05/14/22 07:18. HPI Narrative: This is a 26-year-old male with a past medical history significant for anxiety, high cholesterol, men type I, multiple electrolyte abnormalities with subsequent [place]roide[place] on 03/26/2022 [place] [facility] [place] PTSD, and multiple subsequent visits here in the emergency department for highly fluctuant electrolyte levels as well as chronic abdominal pain. He presents today for abdominal pain and vomiting. Patient states that last night he was nauseous and began vomiting throughout the night. He was not able to keep any of his medications down this morning. He admits to achiness in the epigastric region. He states he otherwise has been taking his medications as directed. Denies any blood. No other sick contacts. Related Data Home Medications Medication Instructions Recorded Confirmed methadone 10 mg/5 mL oral solution 110 mg PO QAM 11/16/21 05/14/22 sennosides 8.6 mg tablet (senna) 1 tab PO DAILY 12/20/21 05/14/22 docusate sodium 100 mg capsule 100 mg PO DAILY #60 caps 03/13/22 05/14/22 (Colace) cyclobenzaprine 10 mg tablet 10 mg PO BID #180 tabs 04/19/22 05/14/22 gabapentin 600 mg tablet 600 mg PO TID #270 tabs 04/19/22 05/14/22 calcium carbonate 200 mg calcium 2,000 mg PO QID #0 tabs 05/12/22 05/14/22 (500 mg) chewable tablet (Tums) calcitriol 0.5 mcg capsule 1 mcg PO BID #360 caps 05/13/22 05/14/22 lorazepam 1 mg tablet (Ativan) 1 mg PO TID PRN anxiety #42 tabs 05/13/22 05/14/22 magnesium gluconate 27 mg 27 mg PO TID 05/13/22 05/14/22 magnesium (500 mg) tablet sertraline 150 mg capsule 150 mg PO DAILY #60 caps 05/13/22 05/14/22 trazodone 100 mg tablet 100 mg PO HS #90 tabs 05/13/22 05/14/22 Previous Rx's Medication Instructions Recorded docusate sodium 100 mg capsule 100 mg PO DAILY #60 caps 03/13/22 (Colace) cyclobenzaprine 10 mg tablet 10 mg PO BID #180 tabs 04/19/22 gabapentin 600 mg tablet 600 mg PO TID #270 tabs 04/19/22 calcium carbonate 200 mg calcium 2,000 mg PO QID #0 tabs 05/12/22 (500 mg) chewable tablet (Tums) calcitriol 0.5 mcg capsule 1 mcg PO BID #360 caps 05/13/22 lorazepam 1 mg tablet (Ativan) 1 mg PO TID PRN anxiety #42 tabs 05/13/22 sertraline 150 mg capsule 150 mg PO DAILY #60 caps 05/13/22 trazodone 100 mg tablet 100 mg PO HS #90 tabs 05/13/22 Allergies Allergy/AdvReac Type Severity Reaction Status Date / Time codeine Allergy Intermediate Verified 05/14/22 07:19 General Stated Complaint: Abd Prob ADRIANA: 3 Review of Systems All systems reviewed & are unremarkable except as noted in HPI and below PFSH All Active Problems (Updated 05/14/22 @ 09:00 by Richy Eagle DO) Hypomagnesemia (Acute) Vomiting (Acute) Abdominal pain (Acute) Iatrogenic hypocalcemia (Acute) Multiple endocrine neoplasia type I (Chronic) Chronic constipation (Chronic) Primary hyperparathyroidism (Chronic) Depression (Chronic) Chest wall pain (Acute) Chronic chest pain (Acute) Acute thoracic myofascial strain (Acute) Anemia (Chronic) Fatigue (Acute) Hypocalcemia (Chronic) Hypomagnesemia (Chronic) Pain, dental (Acute) Hypomagnesemia (Chronic) Depression (Chronic) Suicidal ideation (Acute) Elevated parathyroid hormone (Acute) Family history of coronary arteriosclerosis (Chronic) Father of [place] at 50, mother had [place] at 42 Severe anxiety with panic (Acute) Cellulitis (Acute) Medical History Anxiety Depression Family history of multiple endocrine neoplasia, type 1 Hyperlipidemia Hypocalcemia PTSD (post-traumatic stress disorder) Surgical History H/O parathyroidectomy Family History Mother Anxiety Asthma Depression Sister Anxiety Depression Father Cancer lung & stomach Depression Diabetes Hypertension MEN 1 (multiple endocrine neoplasia) Social History Smoking/Tobacco Use Status: Never Smoking risk assessment performed?: Yes Alcohol Intake: never Drug 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 Adopted: No Caregiver/Support person: No Foster care: No Household members: none Housing: house Number of Children: 0 Communication Needs: None Education Level: high school Do you need help understanding health information?: Never 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 and animals: Yes (Ally) Pets and animals: dog(s) Sexually active: No Do you think of yourself as: straight/heterosexual Current gender identity: male What is your relationship status?: How often do you talk on the phone with friends or family?: twice per week How often do you get together with friends or relatives?: never Do you belong to any clubs or organized social groups?: no Panel score (0-1 are the most socially isolated patients): 0 What type of physical activity do you participate in: walking Duration: 15-30 minutes/day Frequency: 5-6 times per week Maryam/Scientology: Hinduism Special maryam needs: No Seatbelt use: always Helmet use: Yes Helmet use: always Drive 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 guard 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 Exam Narrative Exam Narrative: 1.Const: Well-nourished, Well-developed, appearing stated age 2.Eyes: PERRL, no conjunctival injection, and symmetrical lids. 3.ENT: Atraumatic external nose and ears. Dry MM. Neck: Symmetric, trachea midline, No thyromegaly. 4.CVS: +S1/S2, No murmurs or gallops. Peripheral pulses 2+ and equal in all extremities. Brisk capillary refill in all extremities. 5.RESP: Unlabored respiratory effort. Clear to auscultation bilaterally. No wheezes rales or rhonchi 6.GI: Soft, Nontender/Nondistended, No hepatosplenomegaly. No guarding or rebound. No pain or McBurney's point, negative Cedillo sign. 7.MSK: Normocephalic/Atraumatic, Extremities w/o deformity or ttp No cyanosis or clubbing, Normal movement of all extremities, negative Chvostek and Trousseau sign 8.Skin: Warm, Dry. No rashes or lesions. 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 Sensation grossly intact, no focal neurologic deficits. 10.Psych: (AAO) x3. Appropriate mood and affect Course Vital Signs Vital signs: Vital Signs Temperature 36.8 C 05/14/22 07:13 Pulse 151 H 05/14/22 07:13 Respiratory Rate 18 05/14/22 07:13 Blood Pressure 122/83 05/14/22 07:13 Pulse Oximetry 98 05/14/22 07:13 Temperature 36.8 C 05/14/22 07:13 Temperature Source Tympanic 11/29/22 07:13 Pulse 151 H 05/14/22 07:13 Respiratory Rate 18 05/14/22 07:13 Respiratory Effort Non-Labored 05/14/22 07:16 Blood Pressure 122/83 05/14/22 07:13 Blood Pressure Position Sitting 05/14/22 07:13 Pulse Oximetry 98 05/14/22 07:13 Oxygen Delivery Method Room Air 05/14/22 07:13 Oxygen Flow Rate 0 05/14/22 07:13 Pain Level 6 05/14/22 07:13
[2022-05-14 08:07] LABS: ALT 27 U/L (16-63); AST 13 U/L (15-37); Albumin 3.5 g/dL (3.4-5.0); Alkaline Phosphatase 118 U/L (46-116); Anion Gap 6.9 mmol/L (3-11); BUN 18 mg/dL (7-18); Bilirubin, Total 0.2 mg/dL (0.2-1.0); CO2 33.1 mmol/L (21.0-32.0); CREATININE 1.7 mg/dL (0.70-1.30); Calcium 9.9 mg/dL (8.5-10.1); Chloride 98 mmol/L (98-107); Estimated GFR 55.62 (mL/min/1.73m2); Glucose 137 mg/dL (74-106); Lipase 40 U/L (73-393); Magnesium 1.3 mg/dL (1.8-2.4); Potassium 3.4 mmol/L (3.5-5.1); Sodium 138 mmol/L (136-145); Total Protein 7.9 g/dL (6.4-8.2)
[2022-05-14] MEDS: Ondansetron 4 MG/2 ML VIAL IVP (08:10)
[2022-05-14] MEDS: Ondansetron O.D.T. 4 MG TABEF, 3 TABS/BTL PO (09:31)
[2022-05-14] MEDS: Calcium Carbonate *TUMS* 500 MG CHEW 2000 MG PO (09:31)
[2022-05-14] MEDS: Normal Saline Flush 10 ML SYR IVP (09:31)
[2022-05-14] MEDS: POTASSIUM CHLORIDE 10 MEQ/100 ML BAG 100 MEQ IVPB (09:32)
[2022-05-14] MEDS: MAGNESIUM SULFATE 2 GM/50 ML BAG IVPB (09:33)
== END 2022-05-14 10:44 | disposition home or self-care (01) ==
PROVIDERS: Emergency Medicine; Emergency Provider Student in an Organized Health Care Education/Training Program; PCP Family Medicine
DX: E83.42 Hypomagnesemia (principal); R11.10 Vomiting, unspecified; R10.9 Unspecified abdominal pain
CPT/HCPCS: 36415; 80053; 83690; 96361; 96365; 96368; 96375; 99284; 81003; 83735; 85025; 99283; J2405; J3480

== ENCOUNTER 2022-05-14 14:53 | Inpatient (IN) | payer OTHER, MEDICAID, SELFPAY ==
[2022-05-14 15:16] VITALS: BP 124/92; PULSE 130; RESP 18; TEMP 38.3; O2SAT 96
--- NOTE | 2022-05-14 15:30 | RT.EKG_ITS ---
APPROVED REPORT Exam: Resting ECG Reason for Exam: tachycardia Patient Location: E HR:135 bpm ECG Measurements Heart Rate 135 AXIS RI 139 P 52 QRSd 90 QRS 75 QT 295 T -6 QTc 443 Conclusion Sinus tachycardia...rate> 99 Physician: no stemi
[2022-05-14 15:50] LABS: Lactate 1.5 mmol/L (0.6-1.4)
[2022-05-14 15:52] LABS: Absolute Basophil Count 0.03 10^3/uL (0.0-0.2); Absolute Eosinophil Count 0.32 10^3/uL (0.0-0.7); Absolute Lymphocyte Count 1.53 10^3/uL (1.2-3.4); Absolute Monocyte Count 1.15 10^3/uL (0.1-0.8); Basophils % 0.2; Eosinophils % 2.3; HCT 35.7 % (40.0-50.0); HGB 12.2 g/dL (13.5-17.5); Immature Grans % 0.7; Lymphocytes % 11.1; MCH 30.7 pg (27.0-33.0); MCHC 34.2 % (32.0-36.0); MCV 90 fL (80-95); Monocytes % 8.3; Neutrophils % 77.4; Platelet Count 327 10^3/uL (130-400); RBC 3.97 10^6/uL (4.36-5.78); RDW 11.6 % (11.8-14.1); RDW-SD 37.6 fL; WBC 13.82 10^3/uL (4.4-10.8)
[2022-05-14] MEDS: Lactated Ringers 1,000 ML 1000 ML IV ×2 (15:58→18:18)
[2022-05-14 16:19] LABS: ALT 21 U/L (16-63); AST 13 U/L (15-37); Albumin 3.4 g/dL (3.4-5.0); Alkaline Phosphatase 116 U/L (46-116); Amylase 27 U/L (25-115); BUN 17 mg/dL (7-18); Bilirubin, Total 0.3 mg/dL (0.2-1.0); C-Reactive Protein 1.26 mg/dL (0.0-0.3); CREATININE 1.5 mg/dL (0.70-1.30); Calcium 8.6 mg/dL (8.5-10.1); Chloride 100 mmol/L (98-107); Creatine Kinase 41 U/L (39-308); Estimated GFR 64.63 (mL/min/1.73m2); Glucose 105 mg/dL (74-106); Lipase 54 U/L (73-393); Magnesium 1.8 mg/dL (1.8-2.4); Potassium 3.5 mmol/L (3.5-5.1); Sodium 138 mmol/L (136-145); TSH (W/Ref FT4) 0.69 uIU/mL (0.36-3.74); Total Protein 7.9 g/dL (6.4-8.2)
[2022-05-14 16:25] LABS: Procalcitonin < 0.1 ng/mL
[2022-05-14 16:28] LABS: COVID-19 PCR Negative (Negative); Influenza A PCR Negative (Negative); Influenza B PCR Negative (Negative); RSV PCR Negative (Negative)
[2022-05-14 16:31] LABS: Source Nasopharynx
[2022-05-14 16:37] VITALS: TEMP 38.3
[2022-05-14] MEDS: Acetaminophen 500 MG TAB 1000 MG PO (16:37)
--- NOTE | 2022-05-14 16:45 | DI.CT_ITS ---
Exam(s) CT ABDOMEN PELVIS W EXAM: CT ABDOMEN PELVIS W CLINICAL HISTORY: abdominal pain, fever. TECHNIQUE: Imaging Protocol: Axial computed tomography images with coronal and sagittal reformatted images were created and reviewed CONTRAST MATERIAL: Intravenous: Omnipaque 100cc Oral: None COMPARISON: CT CT RENAL COLIC WO from 05/11/2022 FINDINGS: VISUALIZED LUNG BASES: No nodules nor pleural effusions evident. ABDOMEN: There is no ascites. LIVER: There are no focal hepatic lesions evident . GALLBLADDER/BILIARY: No obvious gallbladder pathology. CBD is not dilated. PANCREAS: No evidence of pancreatic mass nor dilatation of the pancreatic duct. SPLEEN: Spleen is not enlarged. No obvious intrasplenic lesions. Splenic and portal veins are paten t. ADRENALS: There are no significant adrenal masses. KIDNEYS:Small 8 millimeter cyst in the superior pole of the left kidney noted. No solid renal masses . No calculi nor hydronephrosis.. ABDOMINAL AORTA: Abdominal aorta is not enlarged. LYMPH NODES:There are multiple slightly prominent mesenteric lymph nodes measuring up to 1.5 cm. The re is no prominent para-aortic adenopathy. ABDOMINAL WALL: No evidence of significant anterior abdominal wall nor inguinal hernia. GI: Stomach is slightly prominent in size. Duodenum is fluid-filled and moderately dilated to approx imately 3 cm. Small bowel loops are fluid-filled but do not appear obstructed and exhibit upper norm al diameters. PELVIS: GI: There is a calcification within the distal appendix lumen but no evidence of acute appendicitis.A bundant fecal material noted throughout the colon. No significant diverticular disease. LYMPH NODES: There are few slightly prominent lymph nodes around the aortic bifurcation. There is no adenopathy along the iliac chains nor inguinal adenopathy. REPRODUCTIVE: Prostate size normal. Seminal vesicles unremarkable. URINARY BLADDER: No calculi nor obvious masses evident OSSEOUS: No significant osseous lesions. No fractures. IMPRESSION: 1. Compared to the recent noninfused CT scan of 05/11/2022 there are again noted multiple slightly pr ominent mesenteric lymph nodes although I note that the amount of mesenteric streaking has somewhat d ecreased. There is no ascites. No splenomegaly. 2. Abundant fecal material noted throughout the colon consistent with constipation. The small bowel loops are now more fluid-filled and more prominent in size, including the duodenum. This may be rela kayleen to an element of functional obstruction from colonic constipation and/or an element of enteritis. However, there does not appear to be obvious small bowel wall edema and there is no ascites. 3. There is calcified appendicolith within the otherwise normal appearing appendix lumen. No eviden ce of acute appendicitis. No diverticulitis. RADIATION DOSE DELIVERED: 1,225.69mGy.cm Total DLP DATA REPOSITORY: All CT scans at this facility are submitted to the National Radiology Data Registry (NRDR) Dose Index Registry (DIR) with the [employer] ([employer]). RADIATION OPTIMIZATION: All CT scans at this facility use at least one of these dose optimization te chniques: automated exposure control; mA and/or kV adjustment per patient size (includes targeted exa ms where dose is matched to clinical indication); or iterative reconstruction.
--- NOTE | 2022-05-14 16:45 | DI.RAD_ITS ---
Exam(s) XR CHEST 2V PA LATERAL EXAM: XR CHEST 2V PA LATERAL CLINICAL HISTORY: fever. TECHNIQUE: 2D digital imaging was performed. COMPARISON: CR XR CHEST 2V PA LATERAL from 04/19/2022 FINDINGS: 2 views: Heart size is normal. The mediastinum is not widened. Lungs are clear. No infiltrates nor pleural effusions. IMPRESSION: No acute pulmonary findings. DATA REPOSITORY: RADIATION DOSE DELIVERED:
[2022-05-14 17:04] LABS: Bilirubin Negative (Negative); Blood Negative (Negative); Clarity Clear (Clear); Glucose Negative (Negative); Ketones Negative (Negative); Leukocyte Esterase Negative (Negative); Nitrite Negative (Negative); Urobilinogen 0.2 EU/dL (Up TO 0.2); pH 7.5 (5-8)
[2022-05-14] MEDS: Famotidine 20 MG/2 ML VIAL IVP (17:41)
[2022-05-14] MEDS: LORazepam 2 MG/ML VIAL 1 MG IVP (17:41)
--- NOTE | 2022-05-14 18:03 | DI.VRAD_ITS ---
PROCEDURE INFORMATION: Exam: XR Chest Exam date and time: 05/14/2022 5:35 PM Age: 26 years old Clinical indication: Fever TECHNIQUE: Imaging protocol: Radiologic exam of the chest. Views: 2 views. COMPARISON: CR XR CHEST 2V PA LATERAL 04/19/2022 1:08 PM FINDINGS: Lungs: Normal pulmonary expansion. Pulmonary vasculature grossly normal. No gross pulmonary infiltrates or edema pattern. Pleural spaces: No pleural effusion. No pneumothorax. Heart/Mediastinum: Heart size normal. No tracheal/mediastinal shift. Bones/joints: No acute osseous abnormalities are identified. IMPRESSION: No acute thoracic process. Dictated and Authenticated by: Pedro Kenney MD. Ordering:JOYCE Arvizu MD
--- NOTE | 2022-05-14 18:18 | DI.VRAD_ITS ---
PROCEDURE INFORMATION: Exam: CT Abdomen And Pelvis With Contrast Exam date and time: 05/14/2022 5:22 PM Age: 26 years old Clinical indication: Localized; Left lower quadrant (llq); Patient HX: Abdominal pain, fever TECHNIQUE: Imaging protocol: Computed tomography of the abdomen and pelvis with contrast. COMPARISON: CT RENAL COLIC WO 05/11/2022 4:35 PM FINDINGS: Lungs: Visualized lung bases are clear. Heart: Heart size normal. Mediastinal space: The visualized distal esophagus is largely contracted without gross abnormality. Liver: Normal contour. No mass lesions. No intrahepatic biliary ductal dilatation. Gallbladder and bile ducts: The gallbladder is unremarkable. There is dilatation of the common hepatic duct measuring 12 mm diameter, and dilatation of the common bile duct measuring 9 mm diameter. No gross obstructive mass lesions or calcified duct stones are visualized by CT. Clinical/laboratory correlation recommended to exclude evidence of biliary obstruction. Consider sonographic assessment as clinically indicated. Pancreas: Mild pancreatic atrophy in the head/neck distribution. No changes of pancreatitis. No significant ductal dilatation. Spleen: Splenomegaly measuring 13.8 cm. Adrenal glands: Normal. No adrenal mass. Kidneys and ureters: No acute abnormalities. No hydronephrosis or hydroureter. No urinary tract stones are identified. There is a 12 mm low-density lesion in the medial upper pole cortex of the left kidney measuring 30 Hounsfield units average density. It is not well delineated on the recent noncontrast CT. This is an indeterminate lesion. Recommend nonemergent assessment with pre and postcontrast MRI. Stomach and bowel: The stomach is moderately distended with fluid and food content without gross dilatation. Mildly excessive fluid content in the small bowel and proximal colon with equivocal slight increase in bowel wall enhancement. This is suspicious for mild gastroenteritis and developing diarrheal state. No miguelina bowel dilatation or transition point. No evidence of bowel obstruction, perforation, or abscess. Large volume colonic stool in the mid to distal segments consistent with constipation. Appendix: The appendix is normal in caliber and demonstrates no evidence of appendicitis. There is a 6 mm appendicolith in the distal appendiceal lumen. Intraperitoneal space: No free fluid or air. Vasculature: No acute process. No abdominal aortic aneurysm. Lymph nodes: There is central mesenteric stranding/haziness with multiple mildly enlarged nonspecific mesenteric lymph nodes present. This can be seen in mesenteric adenitis, sclerosing mesenteritis, mesenteric edema, or less likely lymphoma. Clinical correlation is recommended. Urinary bladder: The urinary bladder is partially contracted without gross abnormality. Reproductive: Unremarkable as visualized. Bones/joints: No acute osseous abnormalities. Soft tissues: Unremarkable. IMPRESSION: 1. Findings suspicious for gastroenteritis and developing diarrheal state. No evidence of bowel obstruction, perforation, or abscess. 2. Mild dilatation of the common hepatic duct and common bile duct. No obstructive mass lesions or calcified duct stones are visualized by CT. Clinical/laboratory correlation recommended to exclude evidence of biliary obstruction. Consider sonographic assessment as clinically indicated. 3. Large volume colonic stool in the mid and distal colonic segments suggesting constipation. 4. Central mesenteric stranding with enlarged central mesenteric nodes, statistically mesenteric adenitis or reactive nodes, lymphoproliferative disease less likely although correlate clinically. 5. Splenomegaly. 6. There is a 12 mm indeterminate lesion in the medial upper pole cortex of the left kidney. Recommend nonemergent evaluation with pre and postcontrast MRI to exclude solid features. 7. Additional nonemergent findings detailed above. Dictated and Authenticated by: Pedro Kenney MD. Ordering:JOYCE Arvizu MD
[2022-05-14] MEDS: Normal Saline - Diluent 50 ML VIAL IV (19:25)
[2022-05-14] MEDS: Omnipaque 350 MG/ML 100 ML BTL IJ (19:25)
[2022-05-14] MEDS: Normal Saline Flush 10 ML SYR IVP ×2 (19:27→22:04)
[2022-05-14] MEDS: PIPERACILLIN/TAZO 3.375 GM in Normal Saline 50 ML IVPB (20:10)
[2022-05-14 20:23] VITALS: BP 99/63; PULSE 78; RESP 18; TEMP 36.7; O2SAT 95
--- NOTE | 2022-05-14 20:38 | W.PM.HP.N ---
Date of service: 05/14/22 Time of Service: 20:38 Assessment and Plan Assessment and plan (1) Abdominal pain: Status: Acute Assessment and plan: His description of his abdominal pain (periumbilical w/ radiation to LUQ) does not fit his CT findings and his exam is rather benign. Other than his fever and mild leukocytosis, I can find little else to support an acute infectious process. His procalcitonin is normal. As he has been vomiting and subjectively complaining of pain and his CT has questionable enlarged intrahepatic and CBD dilatation, we will proceed w/ MRCP. He will be hospitalized on observation status and surgical consult has been requested. I personally spoke w/ Dr. Han and she indicated that either she or one of her team will see the patient in the morning. I will repeat his labs tomorrow to be sure his lipase or his hepatic enzymes are not rising. I have ordered antiemetics. He does not require narcotic analgesics for this and it would only constipate him further. He already suffers from constipation. 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 current calcium and vitamin D supplementation to treat his hypocalcemia (6) Abnormal CT scan, kidney: Status: Acute Assessment and plan: 12 mm indeterminate lesion in the medial upper pole cortex of the left kidney seen on CT scan of abdomen and pelvis Will check renal US in the morning. If still unclear then can get MRI of kidney History of Present Illness History of Present Illness Chief Complaint: abdominal pain, fever, nausea and vomiting Narrative: 26-year-old male with a history of multiple endocrine neoplasia type I, status post parathyroidectomy was just hospitalized at [facility] from 05/10/2022 through 05/12/2022 for acute nausea vomiting dehydration, azotemia, hypercalcemia. At the time of discharge she was eating and drinking well with no abdominal pain or nausea or vomiting. At the time of discharge she was afebrile and had normal white cell count. He now presented to the emergency department twice today with complaints of nausea and vomiting and abdominal pain. First time he was evaluated and treated with IV fluids. His clinical abdominal exam was benign and therefore no imaging was obtained. He presented to the emergency department again this afternoon and was found to be febrile with a temperature of 38.3 whereas he been afebrile this morning. He was also noted to have a leukocytosis of 13,800 although he also had a leukocytosis this morning of 15,000. There is a leftward shift and his white cell count. Chemistry panel this morning was fairly benign other than some mild hypokalemia and hypomagnesemia but his LFTs were normal. Labs were repeated this afternoon his electrolyte abnormalities have been corrected his potassium is now 3.5 creatinine was slightly down at 1.5 his BUN was normal at 17 and again his LFTs were normal with a total bilirubin 0.3, ALT 21, AST 13, alkaline phosphatase 116. Lipase was normal at 54 and had been normal this morning at 40. CRP is slightly elevated 1.26 and procalcitonin is normal at less than 0.1. This time CT imaging was performed a chest x-ray was performed. Chest x-ray showed no acute pulmonary process CT of the abdomen pelvis showed some mild intrahepatic and and biliary ductal dilatation. Common hepatic duct measured 12 mm in the common bile duct measured 9 mm. No obstructive mass lesion or calcified ductal stones were seen. He was also noted to have some mesenteric adenitis. An incidental finding is a 12 mm indeterminate lesion in the medial pole of the upper cortex of left kidney. ANDREW Arriaga, spoke with Dr. Jolanta Han, general surgeon who recommended admission for observation and MRCP in the morning. Patient was treated in the ER with IV Pepcid and IV Tylenol and given a liter of IV fluids and given Ativan 1 mg. He was started on Zosyn empirically for possible biliary tract pathogens and blood cultures were obtained. Review of Systems All systems reviewed & are unremarkable except as noted in HPI and below Gastrointestinal Gastrointestinal: Reports as per HPI PFSH All Active Problems (Updated 05/14/22 @ 20:57 by Barrington Gupta MD) Abnormal CT scan, kidney (Acute) Intrahepatic bile duct dilation (Acute) Common bile duct dilatation (Acute) Hypomagnesemia (Acute) Vomiting (Acute) Abdominal pain (Acute) Iatrogenic hypocalcemia (Acute) Multiple endocrine neoplasia type I (Chronic) Chronic constipation (Chronic) Primary hyperparathyroidism (Chronic) Depression (Chronic) Chest wall pain (Acute) Chronic chest pain (Acute) Acute thoracic myofascial strain (Acute) Anemia (Chronic) Fatigue (Acute) Hypocalcemia (Chronic) Hypomagnesemia (Chronic) Pain, dental (Acute) Hypomagnesemia (Chronic) Depression (Chronic) Suicidal ideation (Acute) Elevated parathyroid hormone (Acute) Family history of coronary arteriosclerosis (Chronic) Father of KS at 50, mother had KS at 42 Severe anxiety with panic (Acute) Cellulitis (Acute) Medical History Anxiety Depression Family history of multiple endocrine neoplasia, type 1 Hyperlipidemia Hypocalcemia PTSD (post-traumatic stress disorder) Surgical History H/O parathyroidectomy Family History Mother Anxiety Asthma Depression Sister Anxiety Depression Father Cancer lung & stomach Depression Diabetes Hypertension MEN 1 (multiple endocrine neoplasia) Social History Smoking/Tobacco Use Status: Never Smoking risk assessment performed?: Yes Alcohol Intake: never Drug 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 Adopted: No Caregiver/Support person: No Foster care: No Household members: none Housing: house Number of Children: 0 Communication Needs: None Education Level: high school Do you need help understanding health information?: Never 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 and animals: Yes (Ally) Pets and animals: dog(s) Sexually active: No Do you think of yourself as: straight/heterosexual Current gender identity: male What is your relationship status?: How often do you talk on the phone with friends or family?: twice per week How often do you get together with friends or relatives?: never Do you belong to any clubs or organized social groups?: no Panel score (0-1 are the most socially isolated patients): 0 What type of physical activity do you participate in: walking Duration: 15-30 minutes/day Frequency: 5-6 times per week Maryam/Uatsdin: Bahai Special mayram needs: No Seatbelt use: always Helmet use: Yes Helmet use: always Drive 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 rental car ferry 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 Meds Allergies and Home Medications Allergies Allergy/AdvReac Type Severity Reaction Status Date / Time codeine Allergy Intermediate Verified 05/14/22 07:19 Home Medications Medication Instructions Recorded Confirmed Type methadone 10 mg/5 mL oral solution 110 mg PO QAM 11/16/21 05/14/22 History sennosides 8.6 mg tablet (senna) 1 tab PO DAILY 12/20/21 05/14/22 History docusate sodium 100 mg capsule 100 mg PO DAILY #60 caps 03/13/22 05/14/22 Rx (Colace) cyclobenzaprine 10 mg tablet 10 mg PO BID #180 tabs 04/19/22 05/14/22 Rx gabapentin 600 mg tablet 600 mg PO TID #270 tabs 04/19/22 05/14/22 Rx calcium carbonate 200 mg calcium 2,000 mg PO QID #0 tabs 05/12/22 05/14/22 Rx (500 mg) chewable tablet (Tums) calcitriol 0.5 mcg capsule 1 mcg PO BID #360 caps 05/13/22 05/14/22 Rx lorazepam 1 mg tablet (Ativan) 1 mg PO TID PRN anxiety #42 tabs 05/13/22 05/14/22 Rx magnesium gluconate 27 mg 27 mg PO TID 05/13/22 05/14/22 History magnesium (500 mg) tablet sertraline 150 mg capsule 150 mg PO DAILY #60 caps 05/13/22 05/14/22 Rx trazodone 100 mg tablet 100 mg PO HS #90 tabs 05/13/22 05/14/22 Rx Exam Narrative Exam Narrative: Pedro Pablo appears to be toxic, skin is warm and dry HEENT mucous membranes are dry Neck is supple nontender no meningismus Lungs are clear to auscultation Heart is regular no murmur rub Abdomen is obese with normal bowel sounds it is soft and doughy and nontender to deep palpation. He has no Cedillo sign and no rebound tenderness. I cannot detect any organomegaly or palpable masses. Extremities without peripheral cyanosis or edema Neuro exam grossly intact no focal motor or sensory deficits Results Labs Result diagrams: 05/14/22 15:50 05/14/22 15:50 Labs: Laboratory Results - last 24 hr 05/14/22 05/14/22 05/14/22 15:23 15:35 15:37 WBC RBC Hgb Hct MCV MCH MCHC RDW Plt Count MPV Immature Gran % Neutrophils % Lymphocytes % Monocytes % Eosinophils % Basophils % Nucleated RBC % Absolute Neutrophils Absolute Lymphocytes Absolute Monocytes Absolute Eosinophils Absolute Basophils VBG Lactate Sodium Potassium Chloride Carbon Dioxide Anion Gap BUN Creatinine Est GFR (CKD-EPI 2020) Glucose Calcium Magnesium Total Bilirubin AST ALT Alkaline Phosphatase Creatine Kinase Cancelled C-Reactive Protein Cancelled Total Protein Albumin Amylase Cancelled Lipase Cancelled Procalcitonin TSH Cancelled Urine Color Urine Clarity Urine pH Ur Specific [place] Urine Protein Urine Ketones Urine Blood Urine Nitrite Urine Bilirubin Urine Urobilinogen Ur Leukocyte Esterase Urine Glucose COVID-19 Source SARS-CoV-2 (PCR) Influenza Type A (PCR) Influenza Type B (PCR) RSV (PCR) 05/14/22 05/14/22 05/14/22 15:45 15:45 15:50 WBC RBC Hgb Hct MCV MCH MCHC RDW Plt Count MPV Immature Gran % Neutrophils % Lymphocytes % Monocytes % Eosinophils % Basophils % Nucleated RBC % Absolute Neutrophils Absolute Lymphocytes Absolute Monocytes Absolute Eosinophils Absolute Basophils VBG Lactate 1.5 H Sodium 138 Potassium 3.5 Chloride 100 Carbon Dioxide 31.0 Anion Gap 7.0 BUN 17 Creatinine 1.5 H Est GFR (CKD-EPI 2020) 64.63 Glucose 105 Calcium 8.6 Magnesium 1.8 Total Bilirubin 0.3 AST 13 L ALT 21 Alkaline Phosphatase 116 Creatine Kinase 41 C-Reactive Protein 1.26 H Total Protein 7.9 Albumin 3.4 Amylase 27 Lipase 54 Procalcitonin TSH 0.69 Urine Color Urine Clarity Urine pH Ur Specific [place] Urine Protein Urine Ketones Urine Blood Urine Nitrite Urine Bilirubin Urine Urobilinogen Ur Leukocyte Esterase Urine Glucose COVID-19 Source Nasopharynx SARS-CoV-2 (PCR) Negative Influenza Type A (PCR) Negative Influenza Type B (PCR) Negative RSV (PCR) Negative 05/14/22 05/14/22 05/14/22 15:50 15:50 16:40 WBC 13.82 H RBC 3.97 L Hgb 12.2 L Hct 35.7 L MCV 90 MCH 30.7 MCHC 34.2 RDW 11.6 L Plt Count 327 MPV 11.0 Immature Gran % 0.7 Neutrophils % 77.4 Lymphocytes % 11.1 Monocytes % 8.3 Eosinophils % 2.3 Basophils % 0.2 Nucleated RBC % 0.0 Absolute Neutrophils 10.70 H Absolute Lymphocytes 1.53 Absolute Monocytes 1.15 H Absolute Eosinophils 0.32 Absolute Basophils 0.03 VBG Lactate Sodium Potassium Chloride Carbon Dioxide Anion Gap BUN Creatinine Est GFR (CKD-EPI 2020) Glucose Calcium Magnesium Total Bilirubin AST ALT Alkaline Phosphatase Creatine Kinase C-Reactive Protein Total Protein Albumin Amylase Lipase Procalcitonin < 0.1 TSH Urine Color Yellow Urine Clarity Clear Urine pH 7.5 Ur Specific [place] 1.020 Urine Protein Negative Urine Ketones Negative Urine Blood Negative Urine Nitrite Negative Urine Bilirubin Negative Urine Urobilinogen 0.2 Ur Leukocyte Esterase Negative Urine Glucose Negative COVID-19 Source SARS-CoV-2 (PCR) Influenza Type A (PCR) Influenza Type B (PCR) RSV (PCR) Last Vital Signs Temp 36.7 C 05/14/22 20:23 Pulse 78 05/14/22 20:23 Resp 18 05/14/22 20:23 BP 99/63 L 05/14/22 20:23 Pulse Ox 95 05/14/22 20:23
--- NOTE | 2022-05-14 20:52 | ED.GENADUL_ITS ---
Discharge Plan Disposition Patient Disposition: Home Condition: Stable Discharge Details Clinical Impression: Intrahepatic bile duct dilation, Chronic constipation, Abdominal pain, Common bile duct dilatation, Intractable vomiting Primary Care Provider: Brendon Vivar ED Provider: Luh Tsai Discharge Data Discharge Date/Time-TO BE ENTERED AT DEPARTURE: 05/14/22 20:54 Medical Decision Making Patient is febrile at 38.3 and tachycardic in the 130s He has persistent abdominal pain and white count of 13,000, on CT scan of abdomen and pelvis which was ordered secondary to persistent symptoms and fever, patient has dilation of his hepatic and biliary ducts without any evidence of abnormalities to his liver bilirubin, lipase is also within normal limits Case was discussed with Dr. Han and recommendation for admission for MRCP and IV antibiotics Zosyn was initiated Patient is feeling mild improvement but still reporting significant discomfort. He does not notable retained stool on his CT scan, may benefit from bowel regimen Case was discussed with Dr. Humphries who is agreeable to admit patient COVID, flu, and RSV negative Received 2 L of IV LR in the emergency department, Phenergan, Ativan, and Zosyn Agreeable to admission at this time Creatinine 1.5, actually improved compared to prior Electrolytes within normal limits, electrolyte repletion this morning Medical Records Medical records reviewed: Yes I reviewed the patient's medical records. Lab Data Lab results reviewed: Yes I reviewed the patient's lab results. ECG Data Prior ECG tracings: available for review Sign Out No HPI General Date/Time Provider Initiated Documentation: 05/14/22 15:06 . HPI Narrative: This 26-year-old male with history of recent parathyroidectomy, recurrent electrolyte abnormalities, chronic abdominal pain, chronic chest pain presents with report of abdominal pain and persistent nausea and vomiting. He states he was assessed earlier today and received electrolyte repletion. He presents secondary to being unable to hold down his calcitriol and calcium. He states that he has had persistent abdominal pain radiating to his back that is not improving. He denies any blood in vomitus. He denies any diarrhea. He denies any new medications. He thinks he vomited between 8-10 times since being discharged this morning. He states he has had chills. Related Data Home Medications Medication Instructions Recorded Confirmed methadone 10 mg/5 mL oral solution 110 mg PO QAM 11/16/21 05/14/22 sennosides 8.6 mg tablet (senna) 1 tab PO DAILY 12/20/21 05/14/22 docusate sodium 100 mg capsule 100 mg PO DAILY #60 caps 03/13/22 05/14/22 (Colace) cyclobenzaprine 10 mg tablet 10 mg PO BID #180 tabs 04/19/22 05/14/22 gabapentin 600 mg tablet 600 mg PO TID #270 tabs 04/19/22 05/14/22 calcium carbonate 200 mg calcium 2,000 mg PO QID #0 tabs 05/12/22 05/14/22 (500 mg) chewable tablet (Tums) calcitriol 0.5 mcg capsule 1 mcg PO BID #360 caps 05/13/22 05/14/22 lorazepam 1 mg tablet (Ativan) 1 mg PO TID PRN anxiety #42 tabs 05/13/22 05/14/22 sertraline 150 mg capsule 150 mg PO DAILY #60 caps 05/13/22 05/14/22 trazodone 100 mg tablet 100 mg PO HS #90 tabs 05/13/22 05/14/22 magnesium gluconate 500 mg tablet 500 mg PO TID 05/15/22 05/15/22 Previous Rx's Medication Instructions Recorded docusate sodium 100 mg capsule 100 mg PO DAILY #60 caps 03/13/22 (Colace) cyclobenzaprine 10 mg tablet 10 mg PO BID #180 tabs 04/19/22 gabapentin 600 mg tablet 600 mg PO TID #270 tabs 04/19/22 calcium carbonate 200 mg calcium 2,000 mg PO QID #0 tabs 05/12/22 (500 mg) chewable tablet (Tums) calcitriol 0.5 mcg capsule 1 mcg PO BID #360 caps 05/13/22 lorazepam 1 mg tablet (Ativan) 1 mg PO TID PRN anxiety #42 tabs 05/13/22 sertraline 150 mg capsule 150 mg PO DAILY #60 caps 05/13/22 trazodone 100 mg tablet 100 mg PO HS #90 tabs 05/13/22 Allergies Allergy/AdvReac Type Severity Reaction Status Date / Time codeine Allergy Intermediate Verified 05/14/22 07:19 General Stated Complaint: Abd Prob ADRIANA: 3 Review of Systems All systems reviewed & are unremarkable except as noted in HPI and below PFSH All Active Problems (Updated 05/15/22 @ 17:29 by ANDREW Arriaga) Intractable vomiting (Acute) Discharge planning issues (Acute) DVT prophylaxis (Acute) Abnormal CT scan, kidney (Acute) Intrahepatic bile duct dilation (Acute) Common bile duct dilatation (Acute) Hypomagnesemia (Acute) Abdominal pain (Acute) Iatrogenic hypocalcemia (Acute) Multiple endocrine neoplasia type I (Chronic) Chronic constipation (Chronic) Primary hyperparathyroidism (Chronic) Depression (Chronic) Chest wall pain (Acute) Chronic chest pain (Acute) Acute thoracic myofascial strain (Acute) Anemia (Chronic) Fatigue (Acute) Hypocalcemia (Chronic) Hypomagnesemia (Chronic) Pain, dental (Acute) Hypomagnesemia (Chronic) Depression (Chronic) Suicidal ideation (Acute) Elevated parathyroid hormone (Acute) Family history of coronary arteriosclerosis (Chronic) Father of OK at 50, mother had OK at 42 Severe anxiety with panic (Acute) Cellulitis (Acute) Medical History Anxiety Depression Family history of multiple endocrine neoplasia, type 1 Hyperlipidemia Hypocalcemia PTSD (post-traumatic stress disorder) Surgical History H/O parathyroidectomy Family History Mother Anxiety Asthma Depression Sister Anxiety Depression Father Cancer lung & stomach Depression Diabetes Hypertension MEN 1 (multiple endocrine neoplasia) Social History Smoking/Tobacco Use Status: Never Smoking risk assessment performed?: Yes Alcohol Intake: never Drug 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 Adopted: No Caregiver/Support person: No Foster care: No Household members: none Housing: house Number of Children: 0 Communication Needs: None Education Level: high school Do you need help understanding health information?: Never 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 and animals: Yes (Ally) Pets and animals: dog(s) Sexually active: No Do you think of yourself as: straight/heterosexual Current gender identity: male What is your relationship status?: How often do you talk on the phone with friends or family?: twice per week How often do you get together with friends or relatives?: never Do you belong to any clubs or organized social groups?: no Panel score (0-1 are the most socially isolated patients): 0 What type of physical activity do you participate in: walking Duration: 15-30 minutes/day Frequency: 5-6 times per week Maryam/Mormonism: Mandaeism Special maryam needs: No Seatbelt use: always Helmet use: Yes Helmet use: always Drive 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 jinriksha 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 Exam Const General: cooperative and ill appearing HENMT Other: moist mucous membranes Eyes Sclera: sclerae normal Resp Effort & Inspection: normal respiratory effort Cardio Rate: regular rate GI Inspection: normal to inspection Other: tenderness with palpation diffusely, no rebound or guarding Skin General skin exam: no rashes or lesions noted Neuro General: patient alert and patient oriented x3 Course Vital Signs Vital signs: Vital Signs Temperature 38.3 C H 05/14/22 15:16 Pulse 130 H 05/14/22 15:16 Respiratory Rate 18 05/14/22 15:16 Blood Pressure 124/92 H 05/14/22 15:16 Pulse Oximetry 96 05/14/22 15:16 Temperature 36.7 C 05/14/22 20:23 Temperature Source Oral 05/14/22 20:23 Pulse 78 05/14/22 20:23 Respiratory Rate 18 05/14/22 20:23 Respiratory Effort 05/14/22 15:20 Blood Pressure 99/63 L 05/14/22 20:23 Blood Pressure Position Supine 05/14/22 15:16 Pulse Oximetry 95 05/14/22 20:23 Oxygen Delivery Method Room Air 05/14/22 20:23 Oxygen Flow Rate 0 05/14/22 20:23 Pain Level 6 05/14/22 16:37 Lab/Test Results Lab/Test Results: 05/14/22 16:18 Blood Blood Culture - Pending 05/14/22 16:03 Blood Blood Culture - Pending Laboratory Tests Range/Units 05/14/22 05/14/22 05/14/22 15:23 15:35 15:37 WBC (4.4-10.8) 10^3/uL RBC (4.36-5.78) 10^6/uL Hgb (13.5-17.5) g/dL Hct (40.0-50.0) % MCV (80-95) fL MCH (27.0-33.0) pg MCHC (32.0-36.0) % RDW (11.8-14.1) % Plt Count (130-400) 10^3/uL MPV (8.0-11.0) fL Immature Gran % Neutrophils % Lymphocytes % Monocytes % Eosinophils % Basophils % Nucleated RBC % (0.0-0.3) % Absolute Neutrophils (1.2-6.7) 10^3/uL Absolute Lymphocytes (1.2-3.4) 10^3/uL Absolute Monocytes (0.1-0.8) 10^3/uL Absolute Eosinophils (0.0-0.7) 10^3/uL Absolute Basophils (0.0-0.2) 10^3/uL VBG Lactate (0.6-1.4) mmol/L Sodium (136-145) mmol/L Potassium (3.5-5.1) mmol/L Chloride (98-107) mmol/L Carbon Dioxide (21.0-32.0) mmol/L Anion Gap (3-11) mmol/L BUN (7-18) mg/dL Creatinine (0.70-1.30) mg/dL Est GFR (CKD-EPI 2020) (mL/min/1.73m2) Glucose (74-106) mg/dL Calcium (8.5-10.1) mg/dL Magnesium (1.8-2.4) mg/dL Total Bilirubin (0.2-1.0) mg/dL AST (15-37) U/L ALT (16-63) U/L Alkaline Phosphatase (46-116) U/L Creatine Kinase Cancelled C-Reactive Protein Cancelled Total Protein (6.4-8.2) g/dL Albumin (3.4-5.0) g/dL Amylase Cancelled Lipase Cancelled Procalcitonin ng/mL TSH Cancelled Urine Color (Yellow) Urine Clarity (Clear) Urine pH (5-8) Ur Specific [place] (1.005-1.025) Urine Protein (Negative) mg/dL Urine Ketones (Negative) mg/dL Urine Blood (Negative) Urine Nitrite (Negative) Urine Bilirubin (Negative) Urine Urobilinogen (Up TO 0.2) EU/dL Ur Leukocyte Esterase (Negative) Urine Glucose (Negative) mg/dL COVID-19 Source SARS-CoV-2 (PCR) (Negative) Influenza Type A (PCR) (Negative) Influenza Type B (PCR) (Negative) RSV (PCR) (Negative) Range/Units 05/14/22 05/14/22 05/14/22 15:45 15:45 15:50 WBC (4.4-10.8) 10^3/uL RBC (4.36-5.78) 10^6/uL Hgb (13.5-17.5) g/dL Hct (40.0-50.0) % MCV (80-95) fL MCH (27.0-33.0) pg MCHC (32.0-36.0) % RDW (11.8-14.1) % Plt Count (130-400) 10^3/uL MPV (8.0-11.0) fL Immature Gran % Neutrophils % Lymphocytes % Monocytes % Eosinophils % Basophils % Nucleated RBC % (0.0-0.3) % Absolute Neutrophils (1.2-6.7) 10^3/uL Absolute Lymphocytes (1.2-3.4) 10^3/uL Absolute Monocytes (0.1-0.8) 10^3/uL Absolute Eosinophils (0.0-0.7) 10^3/uL Absolute Basophils (0.0-0.2) 10^3/uL VBG Lactate (0.6-1.4) mmol/L 1.5 H Sodium (136-145) mmol/L 138 Potassium (3.5-5.1) mmol/L 3.5 Chloride (98-107) mmol/L 100 Carbon Dioxide (21.0-32.0) mmol/L 31.0 Anion Gap (3-11) mmol/L 7.0 BUN (7-18) mg/dL 17 Creatinine (0.70-1.30) mg/dL 1.5 H Est GFR (CKD-EPI 2020) (mL/min/1.73m2) 64.63 Glucose (74-106) mg/dL 105 Calcium (8.5-10.1) mg/dL 8.6 Magnesium (1.8-2.4) mg/dL 1.8 Total Bilirubin (0.2-1.0) mg/dL 0.3 AST (15-37) U/L 13 L ALT (16-63) U/L 21 Alkaline Phosphatase (46-116) U/L 116 Creatine Kinase 41 C-Reactive Protein 1.26 H Total Protein (6.4-8.2) g/dL 7.9 Albumin (3.4-5.0) g/dL 3.4 Amylase 27 Lipase 54 Procalcitonin ng/mL TSH 0.69 Urine Color (Yellow) Urine Clarity (Clear) Urine pH (5-8) Ur Specific [place] (1.005-1.025) Urine Protein (Negative) mg/dL Urine Ketones (Negative) mg/dL Urine Blood (Negative) Urine Nitrite (Negative) Urine Bilirubin (Negative) Urine Urobilinogen (Up TO 0.2) EU/dL Ur Leukocyte Esterase (Negative) Urine Glucose (Negative) mg/dL COVID-19 Source Nasopharynx SARS-CoV-2 (PCR) (Negative) Negative Influenza Type A (PCR) (Negative) Negative Influenza Type B (PCR) (Negative) Negative RSV (PCR) (Negative) Negative Range/Units 05/14/22 05/14/22 05/14/22 15:50 15:50 16:40 WBC (4.4-10.8) 10^3/uL 13.82 H RBC (4.36-5.78) 10^6/uL 3.97 L Hgb (13.5-17.5) g/dL 12.2 L Hct (40.0-50.0) % 35.7 L MCV (80-95) fL 90 MCH (27.0-33.0) pg 30.7 MCHC (32.0-36.0) % 34.2 RDW (11.8-14.1) % 11.6 L Plt Count (130-400) 10^3/uL 327 MPV (8.0-11.0) fL 11.0 Immature Gran % 0.7 Neutrophils % 77.4 Lymphocytes % 11.1 Monocytes % 8.3 Eosinophils % 2.3 Basophils % 0.2 Nucleated RBC % (0.0-0.3) % 0.0 Absolute Neutrophils (1.2-6.7) 10^3/uL 10.70 H Absolute Lymphocytes (1.2-3.4) 10^3/uL 1.53 Absolute Monocytes (0.1-0.8) 10^3/uL 1.15 H Absolute Eosinophils (0.0-0.7) 10^3/uL 0.32 Absolute Basophils (0.0-0.2) 10^3/uL 0.03 VBG Lactate (0.6-1.4) mmol/L Sodium (136-145) mmol/L Potassium (3.5-5.1) mmol/L Chloride (98-107) mmol/L Carbon Dioxide (21.0-32.0) mmol/L Anion Gap (3-11) mmol/L BUN (7-18) mg/dL Creatinine (0.70-1.30) mg/dL Est GFR (CKD-EPI 2020) (mL/min/1.73m2) Glucose (74-106) mg/dL Calcium (8.5-10.1) mg/dL Magnesium (1.8-2.4) mg/dL Total Bilirubin (0.2-1.0) mg/dL AST (15-37) U/L ALT (16-63) U/L Alkaline Phosphatase (46-116) U/L Creatine Kinase C-Reactive Protein Total Protein (6.4-8.2) g/dL Albumin (3.4-5.0) g/dL Amylase Lipase Procalcitonin ng/mL < 0.1 TSH Urine Color (Yellow) Yellow Urine Clarity (Clear) Clear Urine pH (5-8) 7.5 Ur Specific [place] (1.005-1.025) 1.020 Urine Protein (Negative) mg/dL Negative Urine Ketones (Negative) mg/dL Negative Urine Blood (Negative) Negative Urine Nitrite (Negative) Negative Urine Bilirubin (Negative) Negative Urine Urobilinogen (Up TO 0.2) EU/dL 0.2 Ur Leukocyte Esterase (Negative) Negative Urine Glucose (Negative) mg/dL Negative COVID-19 Source SARS-CoV-2 (PCR) (Negative) Influenza Type A (PCR) (Negative) Influenza Type B (PCR) (Negative) RSV (PCR) (Negative)
[2022-05-14 20:57] VITALS: BP 124/72; PULSE 79; RESP 16; TEMP 36.2; O2SAT 97
[2022-05-14] MEDS: Calcium Carbonate *TUMS* 500 MG CHEW 2000 MG PO (22:03)
[2022-05-14] MEDS: Lactated Ringers 1,000 ML 150 ML IV (22:04)
[2022-05-14] MEDS: traZODone 100 MG TAB PO (22:04)
[2022-05-14] MEDS: Enoxaparin 40 MG/0.4 ML SYR SC (22:14)
[2022-05-14 22:56] VITALS: BP 97/58; PULSE 77; RESP 19; TEMP 36.3; O2SAT 96
[2022-05-15] VITALS (7 sets, daily range): BP systolic 95–124; BP diastolic 60–82; PULSE 80–104; RESP 16–18; TEMP 36.1–37.3; O2SAT 95–98
[2022-05-15] MEDS: Lactated Ringers 1,000 ML 150 ML IV ×2 (04:44→18:24)
[2022-05-15] MEDS: Normal Saline Flush 10 ML SYR IVP (04:44)
[2022-05-15] MEDS: PIPERACILLIN/TAZO 4.5 GM in Normal Saline 100 ML IVPB ×3 (04:45→19:31)
[2022-05-15] MEDS: Acetaminophen 325 MG TAB PO (04:52)
[2022-05-15] MEDS: Calcium Carbonate *TUMS* 500 MG CHEW 2000 MG PO ×5 (05:46→23:28)
[2022-05-15 06:29] LABS: Abs Immature Grans 0.06 10^3/uL (0.0-0.06); HCT 30.3 % (40.0-50.0); HGB 10.3 g/dL (13.5-17.5); MCH 30.9 pg (27.0-33.0); MCV 91 fL (80-95); MPV 11.5 fL (8.0-11.0); Platelet Count 225 10^3/uL (130-400); RBC 3.33 10^6/uL (4.36-5.78); RDW 11.8 % (11.8-14.1); RDW-SD 39.2 fL; WBC 9.72 10^3/uL (4.4-10.8)
[2022-05-15 06:44] LABS: Lipase 38 U/L (73-393); Magnesium 1.7 mg/dL (1.8-2.4)
[2022-05-15 06:46] LABS: ALT 16 U/L (16-63); AST 12 U/L (15-37); Albumin 2.7 g/dL (3.4-5.0); Alkaline Phosphatase 99 U/L (46-116); Anion Gap 3.4 mmol/L (3-11); BUN 14 mg/dL (7-18); Bilirubin, Total 0.1 mg/dL (0.2-1.0); CO2 32.6 mmol/L (21.0-32.0); CREATININE 1.6 mg/dL (0.70-1.30); Calcium 7.7 mg/dL (8.5-10.1); Chloride 104 mmol/L (98-107); Estimated GFR 59.82 (mL/min/1.73m2); Glucose 84 mg/dL (74-106); Potassium 3.3 mmol/L (3.5-5.1); Sodium 140 mmol/L (136-145); Total Protein 6.2 g/dL (6.4-8.2)
[2022-05-15 06:55] LABS: Absolute Eosinophil Count 0.19 10^3/uL (0.0-0.7); Absolute Lymphocyte Count 2.53 10^3/uL (1.2-3.4); Absolute Monocyte Count 1.26 10^3/uL (0.1-0.8); Absolute Neutrophil Count 5.73 10^3/uL (1.2-6.7); Atypical Lymphocytes % 4
[2022-05-15 06:56] LABS: Diff Comment Manual Differential; RBC Morphology Normal
--- NOTE | 2022-05-15 07:00 | DI.MRI_ITS ---
Exam(s) MR ABDOMEN WO EXAM: MR ABDOMEN WO CLINICAL HISTORY: abdominal pain; hepatic ductal dilatation TECHNIQUE: Multiplanar multisequence MRI was performed with both pre and post contrast infused seque nces. Contrast injected sequences were performed following IV injection of cc of Dotarem. COMPARISON: CT CT ABDOMEN PELVIS W from 05/14/2022 FINDINGS: VISUALIZED LUNG BASES: No pleural effusions evident. There is no ascites evident. LIVER: Liver size is normal. There are no ominous focal hepatic lesions. There is mild prominence o f intrahepatic ducts. CBD diameter is minimally prominent measuring 8 millimeters above the pancreat ic head and 7 millimeters within the pancreas. BILIARY: There are multiple tiny gallstones layered on the dependent wall of the gallbladder. Gallbl adder is slightly distended but not edematous and there is no pericholecystic fluid. CBD diameter is slightly increased. There are no obvious calculi in the lower CBD. No evidence of pancreatic head mass PANCREAS: There is no evidence of pancreatic mass nor dilatation of the pancreatic duct.Pancreatic du ct diameter is upper normal. SPLEEN: Spleen is not enlarged and there are no intrasplenic lesions.Splenic and portal veins are pat ent ADRENALS: There are no significant adrenal masses. KIDNEYS: No solid renal masses. No hydronephrosis.Two small benign cysts noted in the left kidney. No other focal renal findings. No hydronephrosis. ABDOMINAL AORTA: Not enlarged and there is no significant para-aortic adenopathy. ANTERIOR ABDOMINAL WALL/GI: There is no evidence of significant anterior abdominal wall hernia in the field of view of this study.Is no evidence of obvious bowel obstruction. OSSEOUS: There are no lytic osseous lesions in the field of view of this study. IMPRESSION: 1. Cholelithiasis. There are multiple tiny gallstones layered on the posterior dependent wall of the mildly distend gallbladder. There is, however, no gallbladder wall edema nor pericholecystic fluid. Nevertheless, the biliary tree is slightly enlarged both intra and extrahepatic. Do not see an obv ious calculus in the lower CBD and no evidence of pancreatic head mass. Pancreatic duct is not dilat ed. Correlation with blood work recommended. 2. Two small benign cysts noted in left kidney. No other significant renal findings. DATA REPOSITORY:
--- NOTE | 2022-05-15 07:18 | W.SURGCON ---
Documented by User: ANDREW Hoffman 05/15/22 07:28 Date of service: 05/15/22 Time of Service: 07:18 Assessment and Plan Assessment and plan (1) Common bile duct dilatation: Status: Acute Assessment and plan: Patients pain is moderately controlled. Last BM 2-3 days ago, full bowel regimen has been ordered. Given patient's dx of MEN I, concern for possible pathology related to his pancrea's. Encouraged patient to ambulate and sit in the chair as tolerated. NPO; Ice chips only. Will await results of US and MRCP for further evaluation of common bile duct and hepatic duct dilation. 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 Patient was admitted to the medical services for further evaluation of fever, tachycardia and new CT findings of dilation of his hepatic and biliary ducts. Of note patient reports that he has had severe back pain for the past 2-3 days. Patient currently denies any nausea or vomiting. He states his last BM was 2-3 days ago. He states that his abdominal pain is located across his upper abdomen. PFSH All Active Problems (Updated 05/14/22 @ 20:57 by Barrington Gupta MD) Abnormal CT scan, kidney (Acute) Intrahepatic bile duct dilation (Acute) Common bile duct dilatation (Acute) Hypomagnesemia (Acute) Vomiting (Acute) Abdominal pain (Acute) Iatrogenic hypocalcemia (Acute) Multiple endocrine neoplasia type I (Chronic) Chronic constipation (Chronic) Primary hyperparathyroidism (Chronic) Depression (Chronic) Chest wall pain (Acute) Chronic chest pain (Acute) Acute thoracic myofascial strain (Acute) Anemia (Chronic) Fatigue (Acute) Hypocalcemia (Chronic) Hypomagnesemia (Chronic) Pain, dental (Acute) Hypomagnesemia (Chronic) Depression (Chronic) Suicidal ideation (Acute) Elevated parathyroid hormone (Acute) Family history of coronary arteriosclerosis (Chronic) Father of ND at 50, mother had ND at 42 Severe anxiety with panic (Acute) Cellulitis (Acute) Medical History Anxiety Depression Family history of multiple endocrine neoplasia, type 1 Hyperlipidemia Hypocalcemia PTSD (post-traumatic stress disorder) Surgical History H/O parathyroidectomy Family History Mother Anxiety Asthma Depression Sister Anxiety Depression Father Cancer lung & stomach Depression Diabetes Hypertension MEN 1 (multiple endocrine neoplasia) Social History Smoking/Tobacco Use Status: Never Smoking risk assessment performed?: Yes Alcohol Intake: never Drug 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 Adopted: No Caregiver/Support person: No Foster care: No Household members: none Housing: house Number of Children: 0 Communication Needs: None Education Level: high school Do you need help understanding health information?: Never 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 and animals: Yes (Ally) Pets and animals: dog(s) Sexually active: No Do you think of yourself as: straight/heterosexual Current gender identity: male What is your relationship status?: How often do you talk on the phone with friends or family?: twice per week How often do you get together with friends or relatives?: never Do you belong to any clubs or organized social groups?: no Panel score (0-1 are the most socially isolated patients): 0 What type of physical activity do you participate in: walking Duration: 15-30 minutes/day Frequency: 5-6 times per week Maryam/Sikh: Sikh Special maryam needs: No Seatbelt use: always Helmet use: Yes Helmet use: always Drive 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 industrial tractor 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 Exam Const General: cooperative and ill appearing Orientation: alert, awake and oriented x3 Resp Effort & Inspection: normal respiratory effort, no audible wheezes and no cough GI Inspection: normal to inspection Palpation: soft, no guarding and tender Results Last Vital Signs Temp 36.7 C 05/15/22 07:12 Pulse 101 H 05/15/22 07:12 Resp 18 05/15/22 07:12 BP 114/73 05/15/22 07:12 Pulse Ox 97 05/15/22 07:12 Labs Result diagrams: 05/15/22 05:56 05/15/22 05:56 Labs: Laboratory Results - last 24 hr 05/14/22 05/14/22 05/14/22 15:23 15:35 15:37 WBC RBC Hgb Hct MCV MCH MCHC RDW Plt Count MPV Immature Gran % Neutrophils % Lymphocytes % Atypical Lymphs % Monocytes % Eosinophils % Basophils % Nucleated RBC % Absolute Neutrophils Absolute Lymphocytes Absolute Monocytes Absolute Eosinophils Absolute Basophils RBC Morphology VBG Lactate Sodium Potassium Chloride Carbon Dioxide Anion Gap BUN Creatinine Est GFR (CKD-EPI 2020) Glucose Calcium Magnesium Total Bilirubin AST ALT Alkaline Phosphatase Creatine Kinase Cancelled C-Reactive Protein Cancelled Total Protein Albumin Amylase Cancelled Lipase Cancelled Procalcitonin TSH Cancelled Urine Color Urine Clarity Urine pH Ur Specific [place] Urine Protein Urine Ketones Urine Blood Urine Nitrite Urine Bilirubin Urine Urobilinogen Ur Leukocyte Esterase Urine Glucose COVID-19 Source SARS-CoV-2 (PCR) Influenza Type A (PCR) Influenza Type B (PCR) RSV (PCR) 05/14/22 05/14/22 05/14/22 15:45 15:45 15:50 WBC RBC Hgb Hct MCV MCH MCHC RDW Plt Count MPV Immature Gran % Neutrophils % Lymphocytes % Atypical Lymphs % Monocytes % Eosinophils % Basophils % Nucleated RBC % Absolute Neutrophils Absolute Lymphocytes Absolute Monocytes Absolute Eosinophils Absolute Basophils RBC Morphology VBG Lactate 1.5 H Sodium 138 Potassium 3.5 Chloride 100 Carbon Dioxide 31.0 Anion Gap 7.0 BUN 17 Creatinine 1.5 H Est GFR (CKD-EPI 2020) 64.63 Glucose 105 Calcium 8.6 Magnesium 1.8 Total Bilirubin 0.3 AST 13 L ALT 21 Alkaline Phosphatase 116 Creatine Kinase 41 C-Reactive Protein 1.26 H Total Protein 7.9 Albumin 3.4 Amylase 27 Lipase 54 Procalcitonin TSH 0.69 Urine Color Urine Clarity Urine pH Ur Specific [place] Urine Protein Urine Ketones Urine Blood Urine Nitrite Urine Bilirubin Urine Urobilinogen Ur Leukocyte Esterase Urine Glucose COVID-19 Source Nasopharynx SARS-CoV-2 (PCR) Negative Influenza Type A (PCR) Negative Influenza Type B (PCR) Negative RSV (PCR) Negative 05/14/22 05/14/22 05/14/22 15:50 15:50 16:40 WBC 13.82 H RBC 3.97 L Hgb 12.2 L Hct 35.7 L MCV 90 MCH 30.7 MCHC 34.2 RDW 11.6 L Plt Count 327 MPV 11.0 Immature Gran % 0.7 Neutrophils % 77.4 Lymphocytes % 11.1 Atypical Lymphs % Monocytes % 8.3 Eosinophils % 2.3 Basophils % 0.2 Nucleated RBC % 0.0 Absolute Neutrophils 10.70 H Absolute Lymphocytes 1.53 Absolute Monocytes 1.15 H Absolute Eosinophils 0.32 Absolute Basophils 0.03 RBC Morphology VBG Lactate Sodium Potassium Chloride Carbon Dioxide Anion Gap BUN Creatinine Est GFR (CKD-EPI 2020) Glucose Calcium Magnesium Total Bilirubin AST ALT Alkaline Phosphatase Creatine Kinase C-Reactive Protein Total Protein Albumin Amylase Lipase Procalcitonin < 0.1 TSH Urine Color Yellow Urine Clarity Clear Urine pH 7.5 Ur Specific [place] 1.020 Urine Protein Negative Urine Ketones Negative Urine Blood Negative Urine Nitrite Negative Urine Bilirubin Negative Urine Urobilinogen 0.2 Ur Leukocyte Esterase Negative Urine Glucose Negative COVID-19 Source SARS-CoV-2 (PCR) Influenza Type A (PCR) Influenza Type B (PCR) RSV (PCR) 05/15/22 05/15/22 05/15/22 05:56 05:56 05:56 WBC 9.72 RBC 3.33 L Hgb 10.3 L Hct 30.3 L MCV 91 MCH 30.9 MCHC 34.0 RDW 11.8 Plt Count 225 MPV 11.5 H Immature Gran % 0.0 Neutrophils % 59.0 Lymphocytes % 22.0 Atypical Lymphs % 4 Monocytes % 13.0 Eosinophils % 2.0 Basophils % 0.0 Nucleated RBC % 0.0 Absolute Neutrophils 5.73 Absolute Lymphocytes 2.53 Absolute Monocytes 1.26 H Absolute Eosinophils 0.19 Absolute Basophils 0.00 RBC Morphology Normal VBG Lactate Sodium 140 Potassium 3.3 L Chloride 104 Carbon Dioxide 32.6 H Anion Gap 3.4 BUN 14 Creatinine 1.6 H Est GFR (CKD-EPI 2020) 59.82 Glucose 84 Calcium 7.7 L Magnesium 1.7 L Total Bilirubin 0.1 L AST 12 L ALT 16 Alkaline Phosphatase 99 Creatine Kinase C-Reactive Protein 0.90 H Total Protein 6.2 L Albumin 2.7 L Amylase Lipase 38 Procalcitonin TSH Urine Color Urine Clarity Urine pH Ur Specific [place] Urine Protein Urine Ketones Urine Blood Urine Nitrite Urine Bilirubin Urine Urobilinogen Ur Leukocyte Esterase Urine Glucose COVID-19 Source SARS-CoV-2 (PCR) Influenza Type A (PCR) Influenza Type B (PCR) RSV (PCR) Documented by User: Issac Pulido MD 05/15/22 12:54 Assessment and Plan Assessment and plan (1) Common bile duct dilatation: Status: Acute Assessment and plan: Patients pain is moderately controlled. Last BM 2-3 days ago, full bowel regimen has been ordered. Given patient's dx of MEN I, concern for possible pathology related to his pancrea's. Encouraged patient to ambulate and sit in the chair as tolerated. NPO; Ice chips only. Will await results of US and MRCP for further evaluation of common bile duct and hepatic duct dilation. I saw and examined earlier this morning, and I agree Patricia's assessment. I reviewed the MRI. The pancreas is totally normal. The biliary ductal dilatation is very mild. Although there is some cholelithiasis, there is no evidence of acute cholecystitis. On exam, his abdomen is soft. He is not distended. There is no tenderness in the right upper quadrant. I think will be very reasonable to advance his diet, and try to discharge him home. 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 (4) Chronic constipation: Status: Chronic PFSH All Active Problems (Updated 05/14/22 @ 20:57 by Barrington Gupta MD) Abnormal CT scan, kidney (Acute) Intrahepatic bile duct dilation (Acute) Common bile duct dilatation (Acute) Hypomagnesemia (Acute) Vomiting (Acute) Abdominal pain (Acute) Iatrogenic hypocalcemia (Acute) Multiple endocrine neoplasia type I (Chronic) Chronic constipation (Chronic) Primary hyperparathyroidism (Chronic) Depression (Chronic) Chest wall pain (Acute) Chronic chest pain (Acute) Acute thoracic myofascial strain (Acute) Anemia (Chronic) Fatigue (Acute) Hypocalcemia (Chronic) Hypomagnesemia (Chronic) Pain, dental (Acute) Hypomagnesemia (Chronic) Depression (Chronic) Suicidal ideation (Acute) Elevated parathyroid hormone (Acute) Family history of coronary arteriosclerosis (Chronic) Father of ND at 50, mother had ND at 42 Severe anxiety with panic (Acute) Cellulitis (Acute) Medical History Anxiety Depression Family history of multiple endocrine neoplasia, type 1 Hyperlipidemia Hypocalcemia PTSD (post-traumatic stress disorder) Surgical History H/O parathyroidectomy Family History Mother Anxiety Asthma Depression Sister Anxiety Depression Father Cancer lung & stomach Depression Diabetes Hypertension MEN 1 (multiple endocrine neoplasia) Social History Smoking/Tobacco Use Status: Never Smoking risk assessment performed?: Yes Alcohol Intake: never Drug 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 Adopted: No Caregiver/Support person: No Foster care: No Household members: none Housing: house Number of Children: 0 Communication Needs: None Education Level: high school Do you need help understanding health information?: Never 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 and animals: Yes (Ally) Pets and animals: dog(s) Sexually active: No Do you think of yourself as: straight/heterosexual Current gender identity: male What is your relationship status?: How often do you talk on the phone with friends or family?: twice per week How often do you get together with friends or relatives?: never Do you belong to any clubs or organized social groups?: no Panel score (0-1 are the most socially isolated patients): 0 What type of physical activity do you participate in: walking Duration: 15-30 minutes/day Frequency: 5-6 times per week Maryam/Sikh: Sikh Special maryam needs: No Seatbelt use: always Helmet use: Yes Helmet use: always Drive 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 industrial tractor 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 Results Labs Result diagrams: 05/15/22 05:56 05/15/22 05:56
[2022-05-15] MEDS: Calcitriol 0.25 MCG CAP 1 MCG PO ×2 (07:47→19:35)
[2022-05-15] MEDS: Senna TAB 1 TAB PO (07:47)
[2022-05-15] MEDS: Gabapentin 600 MG TAB PO ×3 (07:48→19:31)
[2022-05-15] MEDS: Sertraline 50 MG TAB 150 MG PO (07:48)
[2022-05-15] MEDS: LORazepam 1 MG TAB PO ×2 (07:48→18:35)
[2022-05-15] MEDS: Docusate Sodium 100 MG CAP PO (07:48)
[2022-05-15] MEDS: Cyclobenzaprine 10 MG TAB PO ×2 (07:48→19:31)
[2022-05-15] MEDS: Methadone Liquid 10 MG/ML 110 MG PO (07:55)
[2022-05-15] MEDS: MAGNESIUM SULFATE 2 GM/50 ML BAG IVPB (09:07)
[2022-05-15] MEDS: Magnesium Gluconate 500 MG TAB PO ×3 (09:52→19:31)
--- NOTE | 2022-05-15 10:07 | INITIAL_ITS ---
- If Service Date Differs Date of service: 05/15/22 Time of Service: 10:07 Care Management Initial Assess REASON FOR HOSPITALIZATION:: fever, vomiting PAST MEDICAL HISTORY/PAST SURGICAL HISTORY:: All Active Problems. Abnormal CT scan, kidney (Acute). Intrahepatic bile duct dilation (Acute). Common bile duct dilatation (Acute). Hypomagnesemia (Acute). Vomiting (Acute). Abdominal pain (Acute). Iatrogenic hypocalcemia (Acute). Multiple endocrine neoplasia type I (Chronic). Chronic constipation (Chronic). Primary hyperparathyroidism (Chronic). Depression (Chronic). Chest wall pain (Acute). Chronic chest pain (Acute). Acute thoracic myofascial strain (Acute). Anemia (Chronic). Fatigue (Acute). Hypocalcemia (Chronic). Hypomagnesemia (Chronic). Pain, dental (Acute). Hypomagnesemia (Chronic). Depression (Chronic). Suicidal ideation (Acute). Elevated parathyroid hormone (Acute). Family history of coronary arteriosclerosis (Chronic). Father of MT at 50, mother had MT at 42. Severe anxiety with panic (Acute). Cellulitis (Acute). Medical History. Anxiety. Depression. Family history of multiple endocrine neoplasia, type 1. Hyperlipidemia. Hypocalcemia. PTSD (post-traumatic stress disorder). Surgical History. H/O parathyroidectomy PREVIOUS FUNCTIONAL STATUS/SOCIAL/FAMILY SUPPORTS:: Pedro Pablo resides locally, either with his mother in [place] or his sister in [facility]. He has a h istory of PTSD, anciety and depression as well as recent parathyroidectomy (tumor removal). He has had over 40 visits to the ED this year alone. He has a history of RINA (crack/cocaine, heroin) and has been sober for 9 months. He is also a and served in the [employer] from [id number], he has PTSD which presents in nightmares 2-3 times a week and limits sleep. He also has a TBI which occured in 2014. CURRENT FUNCTIONAL STATUS:: Pedro Pablo was lying in bed when CM met with him. He stated that he is feeling very sick, and he is tired. ENRIQUE discussed his readmission to [facility], as he was discharged three days prior to this admission. He stated that he wanted to return home, but did not feel ready to be home. He reported that he asked to be discharged because he wanted to be with his family over the holiday weekend. He stated that he had an MRI today, which was difficult for him due to the enclosed space. CM will continue to follow. ADVANCE DIRECTIVES:: None on file. Has patient been provided with info about the portal/API?: Yes Did the patient sign up for the portal?: No CODE STATUS:: Full Code INSURANCE COVERAGE / FINANCIAL ISSUES:: [facility] CURRENT HOME/COMMUNITY SERVICES/EQUIPMENT:: Attends NA. Endocrinology at [facility]. PRIMARY CARE PHYSICIAN:: Brendon Vivar POTENTIAL DISCHARGE NEEDS:: Follow up with [facility]/RCT referral, PCP appointment. PATIENT/FAMILY EDUCATION NEEDS:: Review of discharge instructions, discuss Ask Me Three. ANTICIPATED BARRIERS TO DISCHARGE:: None identified. TRANSPORTATION:: Via private vehicle with family. PLAN:: Pedro Pablo will likely return to his mother's or his sister's home when medically cleared. He will have a surgical consult today, and will meet with [facility] to discuss the recent referral for RCT. He will be transported home via private vehicle by family. He will follow up with his PCP and discharge plan of care. CM will continue to follow. Readmission - Within the Past 30 Days Yes or No: Y - Date of First Admission Date of 1st Admission: 05/10/22 - Date of this Admission Date of Admission: 05/14/22 This admission was: Through ED - Office Visit Since 1st Admission Have you seen your PCP in the office since discharge?: No Had an appointment Been Scheduled?: Yes Date of Scheduled Appointment: 05/27/22 - Speicalist Appointments Have you seen any other specialist since your 1st Admission?: No - I. Interview patient and/or Family Difficulty reaching your doctor or getting an office appt?: Yes If patient did not receive services, were there orders at: No What were the barriers for not receiving services?: [facility] referral was sent, but he has not met with them yet. - ED visits How many ED visits in the past 12 months: 46 - Assessment for Readmission Summary of readmission circumstances, based upon interviews: Pedro Pablo reported that he did not feel ready to be discharged home on his most previous admission, but that he asked to be discharged because he wanted to be with his family over the long holiday weekend. He was feeling very sick when CM met with him, so the visit was short. He prefers to have his care at [facility], and has verbalized a desire to be transferred, but he understands that his condition must warrant an acute transfer. He is happy with the care he is receiving at [facility].
[2022-05-15] MEDS: POTASSIUM CHLORIDE 20 MEQ/100 ML BAG 50 MEQ IVPB (10:15)
[2022-05-15] MEDS: POTASSIUM CHLORIDE 20 MEQ/100 ML BAG 30 MEQ IVPB (14:56)
--- NOTE | 2022-05-15 17:03 | W.PM.PROGNOT ---
Date of Service Date of service: 05/15/22 Time of Service: 17:04 Assessment and Plan Assessment and plan (1) Abdominal pain: Status: Acute Assessment and plan: MRCP ruled out choledocholithiasis, though he does have both cholelithiasis and mildly dilated ducts. At this point, n/v have resolved. Continue to advance diet. If tolerates, would discharge home tomorrow. No intervention needed on this admission. F[facility] with [facility] [place] as outpatient. 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 (6) Abnormal CT scan, kidney: Status: Acute Assessment and plan: 12 mm indeterminate lesion in the medial upper pole cortex of the left kidney seen on CT. Await US renal. (7) DVT prophylaxis: Status: Acute Assessment and plan: SC enoxaparin (8) Discharge planning issues: Status: Acute Assessment and plan: Anticipate discharge home tomorrow. Discussed with Dr Han Subjective Subjective Interval history since last seen: Pedro Pablo is not nauseated. He has tolerated a clear liquid lunch and some Mcgregor's pie. He denies dizziness, chest pain, shortness of breath. Continues to report epigastric pain. We agreed if he ate a regular tray today and it didn't make his pain worse, he would be discharged home tomorrow. Exam Narrative Exam Narrative: General: Pleasant male who is uncomfortable from the potassium chloride infusion, A&Ox3 HEENT: EOMI, MMM Heart: RRR, no m/r/g Lungs: CTAB Abdomen: soft, tender in epigastrium, nondistended Extremities: no edema BLEs Objective Last Vital Signs Temp 36.1 C L 05/15/22 14:56 Pulse 80 05/15/22 14:56 Resp 18 05/15/22 14:56 BP 124/82 05/15/22 14:56 Pulse Ox 97 05/15/22 14:56 Laboratory Results - last 24 hr 05/14/22 05/15/22 05/15/22 16:40 05:56 05:56 WBC RBC Hgb Hct MCV MCH MCHC RDW Plt Count MPV Immature Gran % Neutrophils % Lymphocytes % Atypical Lymphs % Monocytes % Eosinophils % Basophils % Nucleated RBC % Absolute Neutrophils Absolute Lymphocytes Absolute Monocytes Absolute Eosinophils Absolute Basophils RBC Morphology Sodium 140 Potassium 3.3 L Chloride 104 Carbon Dioxide 32.6 H Anion Gap 3.4 BUN 14 Creatinine 1.6 H Est GFR (CKD-EPI 2020) 59.82 Glucose 84 Calcium 7.7 L Magnesium 1.7 L Total Bilirubin 0.1 L AST 12 L ALT 16 Alkaline Phosphatase 99 C-Reactive Protein 0.90 H Total Protein 6.2 L Albumin 2.7 L Lipase 38 Urine Color Yellow Urine Clarity Clear Urine pH 7.5 Ur Specific [place] 1.020 Urine Protein Negative Urine Ketones Negative Urine Blood Negative Urine Nitrite Negative Urine Bilirubin Negative Urine Urobilinogen 0.2 Ur Leukocyte Esterase Negative Urine Glucose Negative 05/15/22 05:56 WBC 9.72 RBC 3.33 L Hgb 10.3 L Hct 30.3 L MCV 91 MCH 30.9 MCHC 34.0 RDW 11.8 Plt Count 225 MPV 11.5 H Immature Gran % 0.0 Neutrophils % 59.0 Lymphocytes % 22.0 Atypical Lymphs % 4 Monocytes % 13.0 Eosinophils % 2.0 Basophils % 0.0 Nucleated RBC % 0.0 Absolute Neutrophils 5.73 Absolute Lymphocytes 2.53 Absolute Monocytes 1.26 H Absolute Eosinophils 0.19 Absolute Basophils 0.00 RBC Morphology Normal Sodium Potassium Chloride Carbon Dioxide Anion Gap BUN Creatinine Est GFR (CKD-EPI 2020) Glucose Calcium Magnesium Total Bilirubin AST ALT Alkaline Phosphatase C-Reactive Protein Total Protein Albumin Lipase Urine Color Urine Clarity Urine pH Ur Specific [place] Urine Protein Urine Ketones Urine Blood Urine Nitrite Urine Bilirubin Urine Urobilinogen Ur Leukocyte Esterase Urine Glucose
[2022-05-15] MEDS: Prochlorperazine 10 MG TAB PO (21:01)
[2022-05-15] MEDS: traZODone 100 MG TAB PO (23:27)
[2022-05-15] MEDS: Enoxaparin 40 MG/0.4 ML SYR SC (23:29)
[2022-05-16] VITALS (7 sets, daily range): BP systolic 95–113; BP diastolic 56–76; PULSE 79–94; RESP 14–17; TEMP 36.1–36.7; O2SAT 95–96
[2022-05-16] MEDS: PIPERACILLIN/TAZO 4.5 GM in Normal Saline 100 ML IVPB ×2 (04:30→12:34)
--- NOTE | 2022-05-16 07:00 | DI.US_ITS ---
Exam(s) US RENAL EXAM: US RENAL CLINICAL HISTORY: 12 mm quetionable lesion L. kidney upper pole TECHNIQUE: Ultrasound performed using standard protocol. COMPARISON: CT CT ABDOMEN PELVIS W from 05/14/2022 MR MR ABDOMEN WO from 05/15/2022 FINDINGS: The kidneys are normal in size and shape. There is no evidence of hydronephrosis or nephrolithiasis. No renal mass identified. There are a couple of small cortical cysts which were also noted on rece nt MR examination in the left kidney. No solid mass lesion by ultrasound criteria. Urinary bladder is unremarkable in appearance with pre and postvoid urinary bladder volume 179 cc and 12 cc respectively. Ureteral jets were noted bilaterally. IMPRESSION: Negative renal ultrasound. Small simple cysts of left kidney noted. DATA REPOSITORY:
[2022-05-16 07:39] LABS: Abs Immature Grans 0.12 10^3/uL (0.0-0.06); Absolute Basophil Count 0.03 10^3/uL (0.0-0.2); Absolute Eosinophil Count 0.51 10^3/uL (0.0-0.7); Absolute Lymphocyte Count 2.64 10^3/uL (1.2-3.4); Absolute Monocyte Count 0.84 10^3/uL (0.1-0.8); Absolute Neutrophil Count 3.82 10^3/uL (1.2-6.7); Basophils % 0.4; Eosinophils % 6.4; HCT 29.6 % (40.0-50.0); HGB 9.8 g/dL (13.5-17.5); Immature Grans % 1.5; Lymphocytes % 33.2; MCH 30.6 pg (27.0-33.0); MCHC 33.1 % (32.0-36.0); MCV 93 fL (80-95); MPV 10.6 fL (8.0-11.0); Monocytes % 10.6; Neutrophils % 47.9; Platelet Count 239 10^3/uL (130-400); RDW 11.9 % (11.8-14.1); WBC 7.96 10^3/uL (4.4-10.8)
[2022-05-16 07:55] LABS: ALT 27 U/L (16-63); AST 17 U/L (15-37); Albumin 2.7 g/dL (3.4-5.0); Alkaline Phosphatase 142 U/L (46-116); Anion Gap 3.6 mmol/L (3-11); BUN 11 mg/dL (7-18); Bilirubin, Direct 0.1 mg/dL (0.0-0.2); Bilirubin, Total 0.1 mg/dL (0.2-1.0); CO2 31.4 mmol/L (21.0-32.0); CREATININE 1.5 mg/dL (0.70-1.30); Calcium 7.2 mg/dL (8.5-10.1); Chloride 104 mmol/L (98-107); Estimated GFR 64.63 (mL/min/1.73m2); Glucose 79 mg/dL (74-106); Magnesium 1.7 mg/dL (1.8-2.4); Potassium 3.6 mmol/L (3.5-5.1); Sodium 139 mmol/L (136-145); Total Protein 6.2 g/dL (6.4-8.2)
[2022-05-16] MEDS: Calcitriol 0.25 MCG CAP 1 MCG PO ×3 (08:36→19:08)
[2022-05-16] MEDS: Gabapentin 600 MG TAB PO ×3 (08:36→19:07)
[2022-05-16] MEDS: Senna TAB 1 TAB PO (08:37)
[2022-05-16] MEDS: Magnesium Gluconate 500 MG TAB PO ×2 (08:37→14:11)
[2022-05-16] MEDS: Sertraline 50 MG TAB 150 MG PO (08:37)
[2022-05-16] MEDS: Docusate Sodium 100 MG CAP PO ×2 (08:37→19:07)
[2022-05-16] MEDS: Cyclobenzaprine 10 MG TAB PO ×2 (08:37→19:08)
[2022-05-16] MEDS: Methadone Liquid 10 MG/ML 110 MG PO (08:37)
[2022-05-16] MEDS: Calcium Carbonate *TUMS* 500 MG CHEW 2000 MG PO ×4 (09:39→21:07)
[2022-05-16] MEDS: Polyethylene Glycol 3350 17 GM PACKET PO (10:11)
[2022-05-16] MEDS: Normal Saline Flush 10 ML SYR IVP (10:12)
[2022-05-16] MEDS: Pantoprazole 40 MG VIAL IVP (10:12)
[2022-05-16] MEDS: LORazepam 1 MG TAB PO ×2 (10:59→17:24)
[2022-05-16] MEDS: Sucralfate 1 GM TAB PO ×3 (10:59→21:07)
[2022-05-16] MEDS: Acetaminophen 325 MG TAB PO ×2 (10:59→16:06)
[2022-05-16] MEDS: Lactated Ringers 1,000 ML 150 ML IV ×2 (11:11→22:39)
--- NOTE | 2022-05-16 12:00 | PDOC.CMPRO ---
- If Service Date Differs Date of service: 05/16/22 Time of Service: 12:00 Care Management Progress Note S/O: Pedro Pablo was sitting up in his chair when CM met with him. He reported that he is on clear liquids currently, and he is still having a lot of pain in his abdomen and back. Per report, he is having an EGD tomorrow, which he is agreeable to. CM will continue to follow. A: Pedro Pablo is a 26 year old male admitted to [facility] on 05/14/22 with fever, vomiting. P: Pedro Pablo will likely return to his mother's or his sister's home when medically cleared. He will have a surgical consult today, and will meet with SHAYNA to discuss the recent referral for RCT. He will be transported home via private vehicle by family. He will follow up with his PCP and discharge plan of care. CM will continue to follow.
[2022-05-16] MEDS: Normal Saline 500 ML 100 ML IV (12:33)
--- NOTE | 2022-05-16 13:30 | W.PM.PROGNOT ---
Date of Service Date of service: 05/16/22 Time of Service: 13:31 Assessment and Plan Assessment and plan (1) Abdominal pain: Status: Acute Assessment and plan: We talked for a little while about peptic ulcer disease as a potential source of his abdominal pain. I think it is reasonable to start a proton pump inhibitor, and we can plan for an EGD tomorrow. Subjective Subjective Interval history since last seen: Pedro Pablo had more. Umbilical and midepigastric pain as his diet was resumed last night. He says it is a stabbing pain that is going to his back. It is the same in character as the pain that he has been experiencing in the weeks prior. He denies any nausea or vomiting. Exam GI Inspection: normal to inspection Palpation: soft, no guarding and nontender Percussion: normal to percussion Objective Last Vital Signs Temp 97.5 F L 05/16/22 11:30 Pulse 94 H 05/16/22 11:30 Resp 17 05/16/22 11:30 BP 111/73 05/16/22 11:30 Pulse Ox 96 05/16/22 11:30 Laboratory Results - last 24 hr 05/16/22 05/16/22 05/16/22 06:45 06:45 07:30 WBC Cancelled 7.96 RBC Cancelled 3.20 L Hgb Cancelled 9.8 L Hct Cancelled 29.6 L MCV Cancelled 93 MCH Cancelled 30.6 MCHC Cancelled 33.1 RDW Cancelled 11.9 Plt Count Cancelled 239 MPV Cancelled 10.6 Immature Gran % Cancelled 1.5 Neutrophils % Cancelled 47.9 Band Neutrophils % Cancelled Lymphocytes % Cancelled 33.2 Atypical Lymphs % Cancelled Monocytes % Cancelled 10.6 Eosinophils % Cancelled 6.4 Basophils % Cancelled 0.4 Metamyelocytes % Cancelled Myelocytes % Cancelled Promyelocytes % Cancelled Other Cells % Cancelled Nucleated RBC % Cancelled 0.0 Absolute Neutrophils Cancelled 3.82 Absolute Lymphocytes Cancelled 2.64 Absolute Monocytes Cancelled 0.84 H Absolute Eosinophils Cancelled 0.51 Absolute Basophils Cancelled 0.03 RBC Morphology Cancelled Polychromasia Cancelled Hypochromasia Cancelled Poikilocytosis Cancelled Basophilic Stippling Cancelled Anisocytosis Cancelled Microcytosis Cancelled Macrocytosis Cancelled Spherocytes Cancelled Tear Drop Cells Cancelled Ovalocytes Cancelled Stomatocytes Cancelled [place] Bodies Cancelled [place] Cells/Echinocytes Cancelled Acanthocytes (Spur) Cancelled Schistocytes Cancelled Sodium Cancelled Potassium Cancelled Chloride Cancelled Carbon Dioxide Cancelled Anion Gap Cancelled BUN Cancelled Creatinine Cancelled Est GFR (CKD-EPI 2020) Cancelled Glucose Cancelled Calcium Cancelled Magnesium Cancelled Total Bilirubin Cancelled Conjugated Bilirubin Cancelled AST Cancelled ALT Cancelled Alkaline Phosphatase Cancelled Total Protein Cancelled Albumin Cancelled 05/16/22 07:30 WBC RBC Hgb Hct MCV MCH MCHC RDW Plt Count MPV Immature Gran % Neutrophils % Band Neutrophils % Lymphocytes % Atypical Lymphs % Monocytes % Eosinophils % Basophils % Metamyelocytes % Myelocytes % Promyelocytes % Other Cells % Nucleated RBC % Absolute Neutrophils Absolute Lymphocytes Absolute Monocytes Absolute Eosinophils Absolute Basophils RBC Morphology Polychromasia Hypochromasia Poikilocytosis Basophilic Stippling Anisocytosis Microcytosis Macrocytosis Spherocytes Tear Drop Cells Ovalocytes Stomatocytes [place] Bodies [place] Cells/Echinocytes Acanthocytes (Spur) Schistocytes Sodium 139 Potassium 3.6 Chloride 104 Carbon Dioxide 31.4 Anion Gap 3.6 BUN 11 Creatinine 1.5 H Est GFR (CKD-EPI 2020) 64.63 Glucose 79 Calcium 7.2 L Magnesium 1.7 L Total Bilirubin 0.1 L Conjugated Bilirubin 0.1 AST 17 ALT 27 Alkaline Phosphatase 142 H Total Protein 6.2 L Albumin 2.7 L
--- NOTE | 2022-05-16 14:47 | W.PM.PROGNOT ---
Date of Service Date of service: 05/16/22 Time of Service: 14:47 Assessment and Plan Assessment and plan (1) Abdominal pain: Status: Acute Assessment and plan: MRCP ruled out choledocholithiasis, though he does have both cholelithiasis and mildly dilated ducts. At this point, n/v have resolved. Discussed with Dr Pulido - plan an EGD tomorrow. NPO after midnight. Started on PPI and carafate. (2) Vomiting: Status: Resolved Assessment and plan: as above (3) Common bile duct dilatation: Status: Acute Assessment and plan: as above MRCP negative for choledocholithiasis. 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 (6) Abnormal CT scan, kidney: Status: Acute Assessment and plan: 12 mm indeterminate lesion in the medial upper pole cortex of the left kidney seen on CT. No renal mass was seen on ultrasound, but a couple of small cysts were seen. US renal was left as negative. Consider outpatient follow up. (7) DVT prophylaxis: Status: Acute Assessment and plan: SC enoxaparin on hold in anticipation of (8) Discharge planning issues: Status: Acute Assessment and plan: Full code Continues to require hospitalization Subjective Subjective Interval history since last seen: Pedro Pablo states that he has had worsening of his abdominal pain after eating. The pain is described as epigastric/periumbilical and also in RUQ. He states he has never had an EGD. He denies nausea. Last time he had a BM was yesterday. It was hard. Denies dizziness, chest pain, reports a little shortness of breath at rest. Exam Narrative Exam Narrative: General: Pleasant male who does not look like he is feeling well, A&Ox3 HEENT: EOMI, MMM Heart: RRR, no m/r/g Lungs: CTAB Abdomen: soft, tender in epigastrium, nondistended Extremities: no edema BLEs Objective Last Vital Signs Temp 36.4 C L 05/16/22 11:30 Pulse 94 H 05/16/22 11:30 Resp 17 05/16/22 11:30 BP 111/73 05/16/22 11:30 Pulse Ox 96 05/16/22 11:30 Laboratory Results - last 24 hr 12/01/22 12/01/22 12/01/22 06:45 06:45 07:30 WBC Cancelled 7.96 RBC Cancelled 3.20 L Hgb Cancelled 9.8 L Hct Cancelled 29.6 L MCV Cancelled 93 MCH Cancelled 30.6 MCHC Cancelled 33.1 RDW Cancelled 11.9 Plt Count Cancelled 239 MPV Cancelled 10.6 Immature Gran % Cancelled 1.5 Neutrophils % Cancelled 47.9 Band Neutrophils % Cancelled Lymphocytes % Cancelled 33.2 Atypical Lymphs % Cancelled Monocytes % Cancelled 10.6 Eosinophils % Cancelled 6.4 Basophils % Cancelled 0.4 Metamyelocytes % Cancelled Myelocytes % Cancelled Promyelocytes % Cancelled Other Cells % Cancelled Nucleated RBC % Cancelled 0.0 Absolute Neutrophils Cancelled 3.82 Absolute Lymphocytes Cancelled 2.64 Absolute Monocytes Cancelled 0.84 H Absolute Eosinophils Cancelled 0.51 Absolute Basophils Cancelled 0.03 RBC Morphology Cancelled Polychromasia Cancelled Hypochromasia Cancelled Poikilocytosis Cancelled Basophilic Stippling Cancelled Anisocytosis Cancelled Microcytosis Cancelled Macrocytosis Cancelled Spherocytes Cancelled Tear Drop Cells Cancelled Ovalocytes Cancelled Stomatocytes Cancelled Rivera-[place] Bodies Cancelled [place] Cells/Echinocytes Cancelled Acanthocytes (Spur) Cancelled Schistocytes Cancelled Sodium Cancelled Potassium Cancelled Chloride Cancelled Carbon Dioxide Cancelled Anion Gap Cancelled BUN Cancelled Creatinine Cancelled Est GFR (CKD-EPI 2020) Cancelled Glucose Cancelled Calcium Cancelled Magnesium Cancelled Total Bilirubin Cancelled Conjugated Bilirubin Cancelled AST Cancelled ALT Cancelled Alkaline Phosphatase Cancelled Total Protein Cancelled Albumin Cancelled 05/16/22 07:30 WBC RBC Hgb Hct MCV MCH MCHC RDW Plt Count MPV Immature Gran % Neutrophils % Band Neutrophils % Lymphocytes % Atypical Lymphs % Monocytes % Eosinophils % Basophils % Metamyelocytes % Myelocytes % Promyelocytes % Other Cells % Nucleated RBC % Absolute Neutrophils Absolute Lymphocytes Absolute Monocytes Absolute Eosinophils Absolute Basophils RBC Morphology Polychromasia Hypochromasia Poikilocytosis Basophilic Stippling Anisocytosis Microcytosis Macrocytosis Spherocytes Tear Drop Cells Ovalocytes Stomatocytes Rivera-[place] Bodies [place] Cells/Echinocytes Acanthocytes (Spur) Schistocytes Sodium 139 Potassium 3.6 Chloride 104 Carbon Dioxide 31.4 Anion Gap 3.6 BUN 11 Creatinine 1.5 H Est GFR (CKD-EPI 2020) 64.63 Glucose 79 Calcium 7.2 L Magnesium 1.7 L Total Bilirubin 0.1 L Conjugated Bilirubin 0.1 AST 17 ALT 27 Alkaline Phosphatase 142 H Total Protein 6.2 L Albumin 2.7 L
[2022-05-16] MEDS: Magnesium Gluconate 500 MG TAB 1000 MG PO (19:07)
[2022-05-16] MEDS: traZODone 100 MG TAB PO (21:07)
[2022-05-17] VITALS (10 sets, daily range): BP systolic 94–120; BP diastolic 59–79; PULSE 68–90; RESP 14–18; TEMP 36.3–37.2; O2SAT 91–99; BMI 34.2
[2022-05-17] MEDS: Acetaminophen 325 MG TAB PO (05:04)
[2022-05-17] MEDS: Calcium Carbonate *TUMS* 500 MG CHEW 2000 MG PO ×3 (05:04→14:03)
[2022-05-17] MEDS: Lactated Ringers 1,000 ML 150 ML IV (05:28)
[2022-05-17] MEDS: Prochlorperazine 10 MG TAB PO (06:01)
[2022-05-17 07:20] LABS: Anion Gap 5.9 mmol/L (3-11); BUN 9 mg/dL (7-18); CO2 32.1 mmol/L (21.0-32.0); CREATININE 1.4 mg/dL (0.70-1.30); Calcium 7.8 mg/dL (8.5-10.1); Chloride 103 mmol/L (98-107); Estimated GFR 70.21 (mL/min/1.73m2); Glucose 87 mg/dL (74-106); Magnesium 1.6 mg/dL (1.8-2.4); Potassium 3.9 mmol/L (3.5-5.1); Sodium 141 mmol/L (136-145)
[2022-05-17 07:21] LABS: Abs Immature Grans 0.19 10^3/uL (0.0-0.06); Absolute Basophil Count 0.04 10^3/uL (0.0-0.2); Absolute Eosinophil Count 0.32 10^3/uL (0.0-0.7); Absolute Lymphocyte Count 3.18 10^3/uL (1.2-3.4); Absolute Monocyte Count 0.86 10^3/uL (0.1-0.8); Absolute Neutrophil Count 5.35 10^3/uL (1.2-6.7); Basophils % 0.4; Eosinophils % 3.2; HCT 32.9 % (40.0-50.0); HGB 10.7 g/dL (13.5-17.5); Immature Grans % 1.9; MCH 30.3 pg (27.0-33.0); MCHC 32.5 % (32.0-36.0); MCV 93 fL (80-95); Monocytes % 8.7; Neutrophils % 53.8; Platelet Count 270 10^3/uL (130-400); Prothrombin Time 10.4 sec (9.3-11.0); RBC 3.53 10^6/uL (4.36-5.78); RDW 11.9 % (11.8-14.1); RDW-SD 41.1 fL; WBC 9.94 10^3/uL (4.4-10.8)
[2022-05-17] MEDS: Methadone Liquid 10 MG/ML 110 MG PO (08:22)
[2022-05-17] MEDS: Senna TAB 1 TAB PO (08:23)
[2022-05-17] MEDS: Sertraline 50 MG TAB 150 MG PO (08:24)
[2022-05-17] MEDS: Pantoprazole 40 MG TABCR PO (08:24)
[2022-05-17] MEDS: Cyclobenzaprine 10 MG TAB PO (08:25)
[2022-05-17] MEDS: Gabapentin 600 MG TAB PO ×2 (08:25→14:02)
[2022-05-17] MEDS: Sucralfate 1 GM TAB PO ×3 (08:25→16:18)
[2022-05-17] MEDS: Docusate Sodium 100 MG CAP PO (08:25)
[2022-05-17] MEDS: MAGNESIUM SULFATE 2 GM/50 ML BAG IVPB (08:26)
[2022-05-17] MEDS: Magnesium Gluconate 500 MG TAB 1000 MG PO ×2 (08:59→14:03)
[2022-05-17] MEDS: Calcitriol 0.25 MCG CAP 1 MCG PO (09:00)
[2022-05-17] MEDS: LORazepam 1 MG TAB PO (10:35)
--- NOTE | 2022-05-17 11:14 | W.ANESPRE ---
General Info Date of Service Date Performed: 05/17/22 Height: 5 ft 8 in Weight: 102 kg Body Mass Index (BMI): 34.2 Surgical Procedure: Operation Date: 05/17/22 11:20 Proposed Procedure Side Surgeon p Gastroscopy Issac Pulido MD Meds Allergies and Home Medications Allergies Allergy/AdvReac Type Severity Reaction Status Date / Time codeine Allergy Intermediate Verified 05/14/22 07:19 Home Medication Medication Instructions Recorded methadone 10 mg/5 mL oral solution 110 mg PO QAM 11/16/21 sennosides 8.6 mg tablet (senna) 1 tab PO DAILY 12/20/21 docusate sodium 100 mg capsule 100 mg PO DAILY #60 caps 03/13/22 (Colace) cyclobenzaprine 10 mg tablet 10 mg PO BID #180 tabs 04/19/22 gabapentin 600 mg tablet 600 mg PO TID #270 tabs 04/19/22 calcium carbonate 200 mg calcium 2,000 mg PO QID #0 tabs 05/12/22 (500 mg) chewable tablet (Tums) calcitriol 0.5 mcg capsule 1 mcg PO BID #360 caps 05/13/22 lorazepam 1 mg tablet (Ativan) 1 mg PO TID PRN anxiety #42 tabs 05/13/22 sertraline 150 mg capsule 150 mg PO DAILY #60 caps 05/13/22 trazodone 100 mg tablet 100 mg PO HS #90 tabs 05/13/22 magnesium gluconate 500 mg tablet 500 mg PO TID 05/15/22 Current Visit Medications: Current Medications Generic Name Dose Route Start Last Admin Trade Name Freq PRN Reason Stop Dose Admin Acetaminophen 0 mg 05/14/22 20:14 05/17/22 05:04 Acetaminophen 325 Mg Tab PO 650 mg Q4H PRN PRN Administration Al Hydrox/Mg Hydrox/Simethicone 30 ml 05/14/22 20:14 Mylanta Suspension 30 Ml Cup PO Q2H PRN PRN Calcitriol 1 mcg 05/15/22 08:30 05/17/22 09:00 Calcitriol 0.25 Mcg Cap PO 1 mcg BID LUIS ENRIQUE Administration Calcium Carbonate 2,000 mg 05/14/22 22:00 05/17/22 09:17 Calcium Carbonate *Tums* 500 Mg Chew PO 2,000 mg 5X/DAY LUIS ENRIQUE Administration Cyclobenzaprine HCl 10 mg 05/15/22 08:30 12/02/22 08:25 Cyclobenzaprine 10 Mg Tab PO 10 mg BID LUIS ENRIQUE Administration Dimethicone/Zinc Oxide 0 gm 05/14/22 20:14 Katarzyna Protect Cream 142 Gm Tube TP PRN PRN Docusate Sodium 100 mg 05/16/22 20:00 05/17/22 08:25 Docusate Sodium 100 Mg Cap PO 100 mg BID LUIS ENRIQUE Administration Enoxaparin Sodium 40 mg 05/14/22 22:00 05/15/22 23:29 Enoxaparin 40 Mg/0.4 Ml Syr SC 40 mg Q24H LUIS ENRIQUE Administration Gabapentin 600 mg 05/15/22 08:30 05/17/22 08:25 Gabapentin 600 Mg Tab PO 600 mg TID LUIS ENRIQUE Administration Ringer's Solution 1,000 mls @ 150 mls/hr 05/14/22 20:15 05/17/22 05:28 IV 150 mls/hr INFUSION LUIS ENRIQUE Administration Sodium Chloride 500 mls @ 0 mls/hr 05/16/22 12:55 05/16/22 12:34 Saline 500ml Bag IV 0 mls/hr PRN PRN Infusion As Directed IV Miscellaneous Supplies 1 each 05/14/22 15:30 Iv Access IV DIRECTED LUIS ENRIQUE Lorazepam 1 mg 05/15/22 08:06 05/17/22 10:35 Lorazepam 1 Mg Tab PO 1 mg TID PRN PRN Administration anxiety Magnesium Gluconate 1,000 mg 05/16/22 20:00 05/17/22 08:59 Magnesium Gluconate 500 Mg Tab PO 1,000 mg TID LUIS ENRIQUE Administration Magnesium Hydroxide 30 ml 05/14/22 20:14 Milk Of Magnesia 30 Ml Cup PO DAILY PRN PRN Methadone HCl 110 mg 05/15/22 08:30 05/17/22 08:22 Methadone Liquid 10 Mg/Ml PO 110 mg QAM LUIS ENRIQUE Administration Pantoprazole Sodium 40 mg 05/17/22 07:30 05/17/22 08:24 Pantoprazole 40 Mg Tabcr PO 40 mg DAILY@0730 LUIS ENRIQUE Administration Polyethylene Glycol 17 gm 05/17/22 08:30 05/17/22 08:22 Polyethylene Glycol 3350 17 Gm Packet PO Not Given DAILY LUIS ENRIQUE Prochlorperazine Maleate 10 mg 05/15/22 19:43 05/17/22 06:01 Prochlorperazine 10 Mg Tab PO 10 mg Q8H PRN PRN Administration Sennosides 1 tab 05/15/22 08:30 05/17/22 08:23 Senna Tab PO 1 tab DAILY LUIS ENRIQUE Administration Sertraline HCl 150 mg 05/15/22 08:30 05/17/22 08:24 Sertraline 50 Mg Tab PO 150 mg DAILY LUIS ENRIQUE Administration Sodium Chloride 0 ml 05/14/22 15:23 05/16/22 10:12 Normal Saline Flush 10 Ml Syr IVP 20 ml PRN PRN Administration Sucralfate 1 gm 05/16/22 11:30 05/17/22 08:25 Sucralfate 1 Gm Tab PO 1 gm AC & HS LUIS ENRIQUE Administration Trazodone HCl 100 mg 05/14/22 22:00 05/16/22 21:07 Trazodone 100 Mg Tab PO 100 mg HS LUIS ENRIQUE Administration Trimethobenzamide HCl 200 mg 05/14/22 20:29 Trimethobenzamide 200 Mg/2 Ml Vial IM QID PRN PRN nausea PFSH Active Problems Active Problems: Problem Status Onset Code Intractable vomiting R11.10 Discharge planning issues Z02.9 DVT prophylaxis Z29.[address] scan, kidney R93.429 Intrahepatic bile duct dilation K83.8 Common bile duct dilatation K83.8 Hypomagnesemia E83.42 Vomiting R11.10 Abdominal pain R10.9 Iatrogenic hypocalcemia E83.51 Multiple endocrine neoplasia type I E31.21 Chronic constipation K59.09 Primary hyperparathyroidism E21.0 Depression F32.A Chest wall pain R07.89 Chronic chest pain R07.9, G89.29 Acute thoracic myofascial strain S29.019A Anemia D64.9 Fatigue R53.83 Hypocalcemia E83.51 Hypomagnesemia E83.42 Depression F32.A Suicidal ideation R45.851 Elevated parathyroid hormone E34.9 Family history of coronary arteriosclerosis Z82.49 Severe anxiety with panic F41.0 Cellulitis L03.90 Medical History Medical History Anxiety Depression Family history of multiple endocrine neoplasia, type 1 Hyperlipidemia Hypocalcemia PTSD (post-traumatic stress disorder) Surgical History Surgical History H/O parathyroidectomy Tobacco Smoking/Tobacco Use Status: Never Alcohol Alcohol Intake: never Substance Use Substance 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 Vital Signs and Lab Results Vital Signs Most Recent Vital Signs in EMR: Most Recent Vital Signs Temp Pulse Resp BP Pulse Ox 37.2 C 90 18 104/63 95 05/17/22 10:45 05/17/22 10:45 05/17/22 10:45 05/17/22 10:45 05/17/22 10:45 Lab Results Result Diagrams: 05/17/22 06:40 05/17/22 06:40 Blood Type / Crossmatch: No Data to Display Complete Blood Count: White Blood Count 9.94 10^3/uL (4.4-10.8) 05/17/22 06:40 Red Blood Count 3.53 10^6/uL (4.36-5.78) L 05/17/22 06:40 Hemoglobin 10.7 g/dL (13.5-17.5) L 05/17/22 06:40 Hematocrit 32.9 % (40.0-50.0) L 05/17/22 06:40 Platelet Count 270 10^3/uL (130-400) 05/17/22 06:40 Venous Blood Lactate 1.5 mmol/L (0.6-1.4) H 05/14/22 15:45 Complete Metabolic Panel: Sodium 141 mmol/L (136-145) 05/17/22 06:40 Potassium 3.9 mmol/L (3.5-5.1) 05/17/22 06:40 Chloride 103 mmol/L (98-107) 05/17/22 06:40 Carbon Dioxide 32.1 mmol/L (21.0-32.0) H 05/17/22 06:40 BUN 9 mg/dL (7-18) 05/17/22 06:40 Creatinine 1.4 mg/dL (0.70-1.30) H 05/17/22 06:40 Est GFR (CKD-EPI 2020) 70.21 (mL/min/1.73m2) 05/17/22 06:40 Magnesium 1.6 mg/dL (1.8-2.4) L 05/17/22 06:40 Calcium 7.8 mg/dL (8.5-10.1) L 05/17/22 06:40 Albumin 2.7 g/dL (3.4-5.0) L 05/16/22 07:30 Glucose 87 mg/dL (74-106) 05/17/22 06:40 C-Reactive Protein 0.90 mg/dL (0.0-0.3) H 05/15/22 05:56 Liver Function Panel: Alanine Aminotransferase (ALT/SGPT) 27 U/L (16-63) 05/16/22 07:30 Aspartate Amino Transf (AST/SGOT) 17 U/L (15-37) 05/16/22 07:30 Coagulation Panel: INR International Normalized Ratio 1.0 (0.9-1.1) 05/17/22 06:40 Prothrombin Time 10.4 sec (9.3-11.0) 05/17/22 06:40 D-Dimer 392 ng/mlFEU (<500) 04/29/22 13:25 Cardiac Panel: Troponin I < 50 ng/L (<or=60) 05/10/22 Creatine Kinase 41 U/L (39-308) 05/14/22 Arterial Blood Gas: No Data to Display Venous Blood Gas: No Data to Display Pancreas Panel: Amylase Level 27 U/L (25-115) 05/14/22 15:50 Lipase 38 U/L (73-393) 05/15/22 05:56 Thyroid Panel: Thyroid Stimulating Hormone (TSH) 0.69 uIU/mL (0.36-3.74) 05/14/22 15:50 Infectious Disease: Coronavirus (COVID-19)(PCR) Negative (Negative) 05/14/22 15:45 Coronavirus 2019 Source Nasopharynx 05/14/22 15:45 Influenza Virus Type A (PCR) Negative (Negative) 05/14/22 15:45 Influenza Virus Type B (PCR) Negative (Negative) 05/14/22 15:45 Respiratory Syncytial Virus (PCR) Negative (Negative) 05/14/22 15:45 Blood Cultures: No Data to Display Toxicology Panel: Ethyl Alcohol Level < 3.0 mg/dL (<10) 04/30/22 05:56 Urine Amphetamines Screen Negative (Negative) 04/30/22 06:05 Urine Benzodiazepines Screen Negative (Negative) 04/30/22 06:05 Urine Barbiturates Screen Negative (Negative) 04/30/22 06:05 Urine Cocaine Screen Negative (Negative) 04/30/22 06:05 Urine Methadone Screen Positive (Negative) A 04/30/22 06:05 Urine Opiates Screen Negative (Negative) 04/30/22 06:05 Ur Tricyclic Antidepressants Screen Negative (Negative) 04/30/22 06:05 Ur Tetrahydrocannabinol (THC) Scrn Negative (Negative) 04/30/22 06:05 Imaging and Studies Imaging and Studies Study information below may be from another EMR and interpreted by another provider. Please see original notes in EMR for more complete details. EKG Summary: DATE/TIME OF SERVICE: 05/14/22 1608 : 1995PERFORMING LOCATION: [place] APPROVED REPORT Exam: Resting ECG Reason for Exam: tachycardia Patient Location: E HR:135 bpm ECG Measurements Heart Rate 135 AXIS CA 139 P 52 QRSd 90 QRS 75 QT 295 T-6 QTc 443 Conclusion Sinus tachycardia...rate> 99 Physician: no stemi Stress Test Summary: 09/25/21: Stress ECG Conclusion 1. The resting electrocardiogram showed vertical axis, otherwise normal 2. Patient exercised on the Ton[place] protocol and completed a workload of 13.5 METS 3. Normal hemodynamic response to exercise. Patient achieved 87% of predicted heart rate for age 4. There was no electrocardiographic evidence of myocardial ischemia 5. There were no significant dysrhythmias Jean Treadmill Score is 7.0 which is Low risk. Anesthesia Assessment and Plan Anesthesia History Personal History: Delayed Emergence Family History: No Family History of Anesthesia Complications Exercise Tolerance Exercise Tolerance: Metabolic Equivalents>4 Pertinent Negatives Pertinent Negatives: No Symptoms of GERD Cardiac & Pulmonary Exam Cardiac Exam: Normal S1/S2 Heart Sounds Pulmonary Exam: Clear Bilateral Breath Sounds Implantable Cardiac Device Does patient have a Pacemaker or an ICD?: No Airway Exam Known Difficult Airway: No Mallampati Class: 1 Mouth Opening: Normal (> 3cm) Thyromental Distance: Greater than 3 cm Neck Range of Motion: Full ROM Neck Circumference: Normal Teeth Condition: Generalized Poor Dentition ASA Classification ASA Score: ASA 3 Emergency Case?: No NPO Status NPO Status: NPO Clears >2 hours, Solids >8 hours Anesthesia Plan Resuscitation Status: Full Code Anesthesia Technique: General Anesthesia Airway Planned: Natural Airway Monitors Used: Standard Monitors
[2022-05-17] MEDS: Lactated Ringers 1,000 ML 30 ML IV (11:40)
--- NOTE | 2022-05-17 11:54 | W.PM.PROGNOT ---
Date of Service Date of service: 05/17/22 Time of Service: 11:54 Objective Last Vital Signs Temp 37.2 C 05/17/22 10:45 Pulse 90 05/17/22 10:45 Resp 18 05/17/22 10:45 BP 104/63 05/17/22 10:45 Pulse Ox 95 05/17/22 10:45 Laboratory Results - last 24 hr 05/17/22 05/17/22 05/17/22 06:40 06:40 06:40 WBC 9.94 RBC 3.53 L Hgb 10.7 L Hct 32.9 L MCV 93 MCH 30.3 MCHC 32.5 RDW 11.9 Plt Count 270 MPV 11.0 Immature Gran % 1.9 Neutrophils % 53.8 Lymphocytes % 32.0 Monocytes % 8.7 Eosinophils % 3.2 Basophils % 0.4 Nucleated RBC % 0.0 Absolute Neutrophils 5.35 Absolute Lymphocytes 3.18 Absolute Monocytes 0.86 H Absolute Eosinophils 0.32 Absolute Basophils 0.04 PT 10.4 INR 1.0 Sodium 141 Potassium 3.9 Chloride 103 Carbon Dioxide 32.1 H Anion Gap 5.9 BUN 9 Creatinine 1.4 H Est GFR (CKD-EPI 2020) 70.21 Glucose 87 Calcium 7.8 L Magnesium 1.6 L
--- NOTE | 2022-05-17 12:00 | STOM_PTH ---
PATIENT: Pedro Pablo Cortes LOC: U#:[id number] AGE/SX: 26/M ROOM: 206 RE05/16/[address]: Barrington Gupta : 1995 BED: A DIS: 05/17/2022 SPEC #: [id number] RECD: 05/17/22 12:51 STATUS: NIKO REQ #: [id number] IDANIA: 05/17/22 12:[address]: Barrington Gupta DEPT: Surgical Specimen RECD BY: Luh Martinez ENTERED: 05/17/22 12:52 SP TYPE: STOMACH OTHR DR: MD Brendon Garcia DO Tissues: 1 - STOMACH BIOPSY Procedures: GROSS AND MICRO LEVEL 4 IMMUNOPEROXIDASE STAIN Comments: [id number]
--- NOTE | 2022-05-17 12:21 | W.PM.ENDDOP ---
Date of service: 05/17/22 Time of Service: 12:21 Endoscopy Report DATE OF PROCEDURE: 05/17/22 PRE-OP DIAGNOSIS: Dyspepsia POST-OP DIAGNOSIS: other (Gastritis) PROCEDURE: Diagnostic esophagogastroduodenoscopy SURGEON: Issac Pulido ANESTHESIA TYPE: General:No Airway ESTIMATED BLOOD LOSS: 10 PATHOLOGY: other (Biopsies from gastric cardia inflammation) COMPLICATIONS: None DISPOSITION: floor INDICATIONS: Pedro Pablo is a 26-year-old male with nonspecific abdominal pain. He is undergone extensive work-up. Given his symptoms overlap with dyspepsia, we thought that gastritis may remain in the differential diagnosis. He was started on some proton pump inhibition therapy, with some mild response PROCEDURE START TIME: 11:48 PROCEDURE END TIME: 12:00 FINDINGS: Mild gastritis of the gastric cardia and body PROCEDURE DESCRIPTION: After the initiation of monitored anesthetic care, and with the assistance of a bite block, I advanced a standard gastroscope through the mouth past the hypopharynx and into the esophagus.? Under the direct vision of the scope, I advanced down the esophagus into the stomach.? Once I entered the stomach, I performed a brief inspection, followed by retroflexion towards the gastric cardia.? There was reticular erythema of the gastric mucosa and small patchy areas mostly involving the gastric body and cardia..? After that, I gently advanced the scope around the incisura angularis and examined the pylorus.? This also appeared normal.? Next, I advanced the scope through the pylorus into the duodenum.? The mucosa was pink and healthy appearing.? There were no abnormalities.? I was able to visualize bile draining into the duodenum through the ampulla Vater. ?Next, I began retracting the endoscope.? I performed biopsies of the inflammation in the stomach..? I then gently desufflated some of the stomach, and withdrew the endoscope into the distal esophagus. The GE junction was normal at 39 cm, with a normal Z-line at 38 cm. ?Finally, I withdrew the scope along the length of the esophagus taking great care to examine the entirety of the mucosa.? I did not appreciate any abnormalities.
[2022-05-17 13:22] LABS: Lab Add On Test DONE
[2022-05-17 13:39] LABS: Albumin 2.9 g/dL (3.4-5.0)
--- NOTE | 2022-05-17 14:25 | W.ANESPOSTOP ---
Postoperative Evaluation Date, Time and Location Date Performed: 05/17/22 Time Performed: 14:25 Patient Location: Day Surgery Unit Vital Signs Most Recent Imported Vital Signs: Most Recent Vital Signs Temp Pulse Resp BP Pulse Ox 36.6 C 85 14 106/69 94 05/17/22 12:43 05/17/22 12:43 05/17/22 12:43 05/17/22 12:43 05/17/22 12:43 Pain Score Most Recent Pain Score: Most Recent Pain Score Pain Level [Right Mid Abdomen] 4 05/16/22 11:00 Pain Level 3 05/17/22 1245 Assessment Mental Status: Awake (Alert & Oriented to Patient Baseline) Airway and Respiratory Function: Patent airway with normal (patient baseline) respiratory exam Cardiovascular Function: Hemodynamically Stable Hydration Status: Adequately Hydrated Nausea & Vomiting: No Nausea or Vomiting Pain: Pt. Denies Any Pain Peripheral Nerve Block: Patient did not receive a nerve block
--- NOTE | 2022-05-17 16:00 | PDOC.CMDIS ---
- If Service Date Differs Date of service: 05/17/22 Time of Service: 16:00 LACE Index Scoring Tool - Questions: Length of Stay (in days): 3 Acuity (Admit via E.D.?): Yes E.D. Visits: 44 - Answers: Total Score: 10 Risk of Readmission: High Risk Care Management Discharge Reason for Hospitalization: fever, vomiting Discharge Plan: Pedro Pablo will return his sister's home when medically cleared. He will follow up with his PCP, SHAYNA and discharge plan of care and transport home via private vehicle with his sister. Patient/Family Education Needs: Review discharge instructions, discuss Ask Me Three.
--- NOTE | 2022-05-17 16:03 | W.PM.DS.N ---
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 (6) Abnormal CT scan, kidney: Status: Acute (7) DVT prophylaxis: Status: Acute (8) Discharge planning issues: Status: Acute Discharge Plan Disposition Patient Disposition: Home Condition: Good Discharge Details Reason For Visit: Fever,Vomiting Admit Date/Time: 05/16/22 14:52 Admit Provider: Barrington Gupta Attending Provider: Barrington Gupta Primary Care Provider: Brendon Vivar [facility] Hospital Course: 26-year-old male with a history of multiple endocrine neoplasia type I, status post parathyroidectomy was just hospitalized at [facility] from 05/10/2022 through 05/12/2022 for acute nausea vomiting dehydration, azotemia, hypercalcemia.? At the time of discharge he was eating and drinking well with no abdominal pain or nausea or vomiting.? At the time of discharge he was afebrile and had normal white cell count.? He presented to the [facility] ED 05/15/2022 twice with complaints of nausea and vomiting and abdominal pain.? First time he was evaluated and treated with IV fluids.?His vital signs were stable and he had no fever. His clinical abdominal exam was benign and therefore no imaging was obtained.? He presented to the emergency department again several hours later and was found to be febrile with a temperature of 38.3. He was also noted to have a leukocytosis of 13,800. Chemistry's showed hypokalemia and hypomagnesemia but his LFTs were normal, creatinine was slightly down at 1.5 his BUN was normal at 17.? Lipase was normal. CRP was slightly elevated 1.26 and procalcitonin was normal at less than 0.1.?CT imaging was performed and a chest x-ray was performed.? Chest x-ray showed no acute pulmonary process CT of the abdomen pelvis showed some mild intrahepatic and and biliary ductal dilatation.? Common hepatic duct measured 12 mm in the common bile duct measured 9 mm.? No obstructive mass lesion or calcified ductal stones were seen.? He was also noted to have some mesenteric adenitis.? An incidental finding is a 12 mm indeterminate lesion in the medial pole of the upper cortex of left kidney. Dr. Jolanta Han, general surgeon, recommended admission for observation and MRCP in the morning? Patient was treated in the ER with IV Pepcid and IV Tylenol and given a liter of IV fluids and given Ativan 1 mg.? He was started on Zosyn empirically for possible biliary tract pathogens and blood cultures were obtained. His MRCP was negative. He was then consented for EGD. Endoscopy here perfomed by Dr Pulido found no abnormalities. He was able to eat this afternoon and was stable and wanting to go home. He continues to be hypogmagnesemic and is being sent home with his usual dose of magnesium doubled; he will follow up with PCP. He was told to keep his appointment for [place] [facility]. He was discharged to home stable with no services. Discussed with Dr Blanton? Home Meds and New Rx's Prescriptions: New magnesium gluconate 27 mg magnesium (500 mg) Tablet 1,000 mg PO TID Qty: 90 0RF Continued cyclobenzaprine 10 mg tablet 10 mg PO BID Qty: 180 3RF gabapentin 600 mg tablet 600 mg PO TID Qty: 270 3RF calcitriol 0.5 mcg capsule 1 mcg PO BID Qty: 360 3RF sertraline 150 mg capsule 150 mg PO DAILY Qty: 60 0RF trazodone 100 mg tablet 100 mg PO HS Qty: 90 3RF lorazepam [Ativan] 1 mg tablet 1 mg PO TID PRN (Reason: anxiety) Qty: 42 0RF methadone 10 mg/5 mL solution 110 mg PO QAM sennosides [senna] 8.6 mg tablet 1 tab PO DAILY Label Comments: TAKE TWO TABLETS BY MOUTH AT BEDTIME docusate sodium [Colace] 100 mg capsule 100 mg PO DAILY Qty: 60 0RF calcium carbonate [Tums] 200 mg calcium (500 mg) Tablet,Chewable 2,000 mg PO QID Qty: 0 0RF Discontinued magnesium gluconate 500 mg Tablet 500 mg PO TID Discharge Instructions Instructions: Acute Nausea and Vomiting (GEN) Additional Instructions: [place] [facility] [place] [place]. Stand Alone Forms: Nursing Discharge Form Activity:: Activity as Tolerated Equipment/Supplies:: No Equipment Needed Diet:: As Tolerated Discharge Orders Discharge Orders: Discharge Order (Routine); Ordered 05/17/22 Ordered By: Mandi Evans Discharge Data Discharge Date/Time-TO BE ENTERED AT DEPARTURE: 05/17/22 17:14 DS: Summary Time Spent with Patient providing and/or coordinating discharge services: Greater than 30 minutes Status at Discharge Functional status at discharge: independent ambulation Overall status at discharge: patient is back to baseline Mental Status: mental status grossly normal Speech and Movement: speech and movement normal Mood: congruent mood Affect: normal affect Exam Psych Mental Status: mental status grossly normal Speech and Movement: speech and movement normal Mood: congruent mood Affect: normal affect DS: Data Vitals/I&O Vitals and I&O: Vital Signs Temperature 36.7 C 05/17/22 15:32 Temperature Source Tympanic 05/17/22 15:32 Pulse 70 05/17/22 15:32 Pulse Rhythm Regular 05/17/22 15:55 Respiratory Rate 16 05/17/22 15:32 Respiratory Effort 05/17/22 15:55 Respiratory Depth Normal 05/17/22 15:55 Respiratory Pattern Normal 05/17/22 15:55 Blood Pressure 94/59 L 05/17/22 15:32 Blood Pressure Position Supine 05/14/22 15:16 Pulse Oximetry 94 05/17/22 15:32 Oxygen Delivery Method Room Air 05/17/22 15:32 Oxygen Flow Rate 0 05/17/22 15:32 Pain Level 0 05/17/22 15:32 Comment 05/16/22 23:45 Intake & Output 05/16/22 05/17/22 05/17/22 23:59 11:59 23:59 Intake Total 1934.167 / 4114.167 20190 999 / 3020 Output Total 3500 / 4400 Balance -1565.833 / -071.138 7245 / 3020 1000 / 3020 Weight 102 kg Intake: IV 1074.167 / 2174.167 2019 / 3020 1000 / 3020 Oral 860 / 1940 Output: Urine 3500 / 4400 Other: Urine Color Yellow Urine Appearance Clear Clear Clear Urine Odor None Comment Void x1 in the toilet. Voiding Methods Toilet Data Completed and Pending Labs on day of discharge: Labs from last 24 hours 05/17/22 05/17/22 05/17/22 06:40 06:40 06:40 WBC RBC Hgb Hct MCV MCH MCHC RDW Plt Count MPV Immature Gran % Neutrophils % Lymphocytes % Monocytes % Eosinophils % Basophils % Nucleated RBC % Absolute Neutrophils Absolute Lymphocytes Absolute Monocytes Absolute Eosinophils Absolute Basophils PT 10.4 INR 1.0 Sodium Potassium Chloride Carbon Dioxide Anion Gap BUN Creatinine Est GFR (CKD-EPI 2020) Glucose Calcium Magnesium Albumin 2.9 L Add-On Test Request DONE 05/17/22 05/17/22 06:40 06:40 WBC 9.94 RBC 3.53 L Hgb 10.7 L Hct 32.9 L MCV 93 MCH 30.3 MCHC 32.5 RDW 11.9 Plt Count 270 MPV 11.0 Immature Gran % 1.9 Neutrophils % 53.8 Lymphocytes % 32.0 Monocytes % 8.7 Eosinophils % 3.2 Basophils % 0.4 Nucleated RBC % 0.0 Absolute Neutrophils 5.35 Absolute Lymphocytes 3.18 Absolute Monocytes 0.86 H Absolute Eosinophils 0.32 Absolute Basophils 0.04 PT INR Sodium 141 Potassium 3.9 Chloride 103 Carbon Dioxide 32.1 H Anion Gap 5.9 BUN 9 Creatinine 1.4 H Est GFR (CKD-EPI 2020) 70.21 Glucose 87 Calcium 7.8 L Magnesium 1.6 L Albumin Add-On Test Request Preliminary micro results at discharge 05/14/22 16:18 Blood Culture - Preliminary Blood NO GROWTH 48 HOURS 05/14/22 16:03 Blood Culture - Preliminary Blood NO GROWTH 48 HOURS PFSH All Active Problems (Updated 05/17/22 @ 00:03 by HAMMAD WILEY) Intractable vomiting (Acute) Discharge planning issues (Acute) DVT prophylaxis (Acute) Abnormal CT scan, kidney (Acute) Intrahepatic bile duct dilation (Acute) Common bile duct dilatation (Acute) Hypomagnesemia (Acute) Abdominal pain (Acute) Iatrogenic hypocalcemia (Acute) Multiple endocrine neoplasia type I (Chronic) Chronic constipation (Chronic) Primary hyperparathyroidism (Chronic) Depression (Chronic) Chest wall pain (Acute) Chronic chest pain (Acute) Acute thoracic myofascial strain (Acute) Anemia (Chronic) Fatigue (Acute) Hypocalcemia (Chronic) Hypomagnesemia (Chronic) Depression (Chronic) Suicidal ideation (Acute) Elevated parathyroid hormone (Acute) Family history of coronary arteriosclerosis (Chronic) Father of PA at 50, mother had PA at 42 Severe anxiety with panic (Acute) Cellulitis (Acute) Medical History Anxiety Depression Family history of multiple endocrine neoplasia, type 1 Hyperlipidemia Hypocalcemia PTSD (post-traumatic stress disorder) Surgical History H/O parathyroidectomy Family History Mother Anxiety Asthma Depression Sister Anxiety Depression Father Cancer lung & stomach Depression Diabetes Hypertension MEN 1 (multiple endocrine neoplasia) Social History Smoking/Tobacco Use Status: Never Smoking risk assessment performed?: Yes Alcohol Intake: never Drug 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 Adopted: No Caregiver/Support person: No Foster care: No Household members: none Housing: house Number of Children: 0 Communication Needs: None Education Level: high school Do you need help understanding health information?: Never 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 and animals: Yes (Ally) Pets and animals: dog(s) Sexually active: No Do you think of yourself as: straight/heterosexual Current gender identity: male What is your relationship status?: How often do you talk on the phone with friends or family?: twice per week How often do you get together with friends or relatives?: never Do you belong to any clubs or organized social groups?: no Panel score (0-1 are the most socially isolated patients): 0 What type of physical activity do you participate in: walking Duration: 15-30 minutes/day Frequency: 5-6 times per week Maryam/Zoroastrianism: Holiness Special maryam needs: No Seatbelt use: always Helmet use: Yes Helmet use: always Drive 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 solo truck 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
== END 2022-05-17 17:14 | disposition home or self-care (01) | DRG 392 ==
LOC: ER 20:38 → MS 20:56
PROVIDERS: Internal Medicine; Nurse Practitioner Family; Surgery; Admitting Provider Internal Medicine; Emergency Provider Physician Assistant; PCP Family Medicine; Visit Provider Internal Medicine
PROC: 0DJ68ZZ Inspection of Stomach, Via Natural or Artificial Opening Endoscopic (ICD-10-PCS; CPT 43235; principal; 2022-05-17 11:15)
DX: R10.13 Epigastric pain (principal); E86.0 Dehydration; R11.2 Nausea with vomiting, unspecified; K82.8 Other specified diseases of gallbladder; R50.9 Fever, unspecified; E31.21 Multiple endocrine neoplasia [MEN] type I; K59.09 Other constipation; R93.422 Abnormal radiologic findings on diagnostic imaging of left kidney; E83.42 Hypomagnesemia; E87.6 Hypokalemia; E89.2 Postprocedural hypoparathyroidism; F32.A Depression, unspecified; R07.89 Other chest pain; G89.29 Other chronic pain; E83.51 Hypocalcemia; F41.0 Panic disorder [episodic paroxysmal anxiety]; F11.11 Opioid abuse, in remission; K80.20 Calculus of gallbladder without cholecystitis without obstruction; K29.70 Gastritis, unspecified, without bleeding; I88.0 Nonspecific mesenteric lymphadenitis; D72.829 Elevated white blood cell count, unspecified
CPT/HCPCS: 43239; 36415; 76770; 80048; 80053; 80076; 82550; 83690; 84145; 87040; 87637; 88305; 93005; 96361; 96365; 96366; 96367; 96375; 99285; J1650; 71046; 74177; 74181; 81003; 82040; 82150; 83605; 83735; 84443; 85025; 85610; 86140; 88361; 93010; 99219; 99226; 99233; 99239; G0378; J2060; J2250; J2543; J3480; J3490

== ENCOUNTER 2022-05-18 18:03 | Emergency (ER) | payer OTHER, SELFPAY ==
[2022-05-18] VITALS (23 sets, daily range): BP systolic 114–136; BP diastolic 72–120; PULSE 90–139; RESP 11–28; TEMP 36.8–37; O2SAT 94–98
--- NOTE | 2022-05-18 18:45 | RT.EKG_ITS ---
APPROVED REPORT Exam: Resting ECG Reason for Exam: chest pain Patient Location: E HR:113 bpm ECG Measurements Heart Rate 113 AXIS TN 179 P 69 QRSd 93 QRS 58 QT 336 T 12 QTc 461 Conclusion Sinus tachycardia...rate> 99 sinus tachycardia, normal axis, non iscemic
--- NOTE | 2022-05-18 19:13 | ED.GENADUL_ITS ---
Discharge Plan Disposition Patient Disposition: Home Condition: Improving Discharge Details Clinical Impression: Abdominal pain, Back pain, Nausea and vomiting Primary Care Provider: Brendon Vivar ED Provider: Breonna Bates Home Meds and New Rx's Prescriptions: Continued cyclobenzaprine 10 mg tablet 10 mg PO BID Qty: 180 3RF gabapentin 600 mg tablet 600 mg PO TID Qty: 270 3RF calcitriol 0.5 mcg capsule 1 mcg PO BID Qty: 360 3RF sertraline 150 mg capsule 150 mg PO DAILY Qty: 60 0RF trazodone 100 mg tablet 100 mg PO HS Qty: 90 3RF lorazepam [Ativan] 1 mg tablet 1 mg PO TID PRN (Reason: anxiety) Qty: 42 0RF methadone 10 mg/5 mL solution 110 mg PO QAM magnesium gluconate 27 mg magnesium (500 mg) Tablet 1,000 mg PO TID Qty: 90 0RF sennosides [senna] 8.6 mg tablet 1 tab PO DAILY Label Comments: TAKE TWO TABLETS BY MOUTH AT BEDTIME docusate sodium [Colace] 100 mg capsule 100 mg PO DAILY Qty: 60 0RF calcium carbonate [Tums] 200 mg calcium (500 mg) Tablet,Chewable 2,000 mg PO QID Qty: 0 0RF Discharge Instructions Instructions: Acute Nausea and Vomiting (ED), Abdominal Pain (ED), Back Pain (ED) Additional Instructions: Your magnesium level today was low and you were given magnesium supplementation here in the emergency department. Your calcium level was reassuring and close to normal levels. Your CT scan showed the previously noted biliary dilatation but no evidence of gallstones. Your chest x-ray showed no evidence of acute disease. It is recommended that you drink plenty of fluids and get plenty of rest. Take the Phenergan as needed and directed for nausea and vomiting. Follow-up with your primary care doctor in 1 week. Return to the emergency department with any worsening or new concerning s ymptoms. Discharge Data Discharge Date/Time-TO BE ENTERED AT DEPARTURE: 05/19/22 06:50 Discharge Physician: Breonna Bates Medical Decision Making <Ajay Kennedy MD - Last Filed: 05/18/22 19:17> 26-year-old male history of parathyroidectomy, presents with recurrent abdominal discomfort nausea and vomiting, normal bowel movements, no history of abdominal surgeries, patient is afebrile nontoxic however appears uncomfortable, subjective discomfort in the epigastrium without guarding or rebounding. No palpable mass no distention nonperitoneal. Consider biliary colic versus gastritis versus pancreatitis versus unlikely bowel obstruction versus symptomatic hypocalcemia versus medication related versus consider withdrawal from methadone. Screening labs imaging fluids antiemetics anti-inflammatory close reassessment. <Breonna Bates, - Last Filed: 05/19/22 07:35> Dr. Kennedy 26-year-old male history of parathyroidectomy, presents with recurrent abdominal discomfort nausea and vomiting, normal bowel movements, no history of abdominal surgeries, patient is afebrile nontoxic however appears uncomfortable, subjective discomfort in the epigastrium without guarding or rebounding. No pal pable mass no distention nonperitoneal. Consider biliary colic versus gastritis versus pancreatitis versus unlikely bowel obstruction versus symptomatic hypocalcemia versus medication related versus consider withdrawal from methadone. Screening labs imaging fluids antiemetics anti-inflammatory close reassessment. Dr. Bates [id number] --please see Dr. Cm's note for initial presentation, exam and plan. Case endorsed to follow-up on CT imaging and reassess. CT Abdomen/Pelvis notes: IMPRESSION: 1. Mild intrahepatic and extrahepatic biliary dilatation. No definable obstructing focus. Recommend correlation with bilirubin. No acute gallbladder pathology or gallstones evident. 2. Mild splenomegaly. Granulomatous calcification within the spleen. 3. No acute renal pathology. Left renal small cysts and a punctate lower pole nonobstructive calculus. 4. Nonobstructive bowel pattern. 5. Can not exclude bladder wall thickening. Under distended at time of imaging. Recommend correlation with urinalysis to exclude cystitis. With addendum The impression should also contain a statement regarding early infiltrative changes of the left lung base with minor tree-in-bud opacification. Patient reassessed --he has no improvement of his nausea, vomiting or pain. He states his pain is mainly across his lower abdomen and his left lower back. His last bowel movement yesterday. Case discussed with Dr. Han --no other surgical recommendations as he had negative MRCP and EGD. He has no diarrhea so a bacterial diarrheal illness appears less likely as cause of his leukocytosis and pain. Consider pneumonia as he has a left lower lobe infiltrate and complains of left lower back pain in the setting of leukocytosis as well. We will obtain a chest x-ray. We will give another liter of IV fluids, IV Dilaudid, IV Phenergan, p.o. Valium and reassess. 0100 --chest x-ray negative for acute findings. Patient reassessed and he admits to improvement in nausea but still is complaining of pain of this lower abdominal and left sided lower back pain that he has had while admitted here recently twice. He is moving all extremities without focal deficits. We will give another dose of Dilaudid and plan for p.o. challenge. 0300 --patient drowsy after Dilaudid but able to tolerate a p.o. challenge and feels better. Vitals within normal limits. He is requesting to stay here to rest and does not have a ride home. Will hold in the ED until able to get a ride. Will send home with Phenergan to help with nausea and vomiting. Advised to follow up with the primary care doctor for re-evaluation. Usual and customary return precautions given prior to discharge. Medical Records Medical records reviewed: Yes I reviewed the patient's medical records. Imaging Data Radiologic Study: Radiologist's impression: Addendum created by Jean Marie Pierson MD on 05/18/2022 8:25:11 PM EST: The impression should also contain a statement regarding early infiltrative changes of the left lung base with minor tree-in-bud opacification. CT Abdomen And Pelvis With Contrast Exam date and time: 05/18/2022 7:40 PM Age: 26 years old Clinical indication: Nausea and vomiting; Abdominal pain; Patient HX: Upper abd pain, nausea, vomiting TECHNIQUE: Imaging protocol: Computed tomography of the abdomen and pelvis with contrast. COMPARISON: MR ABDOMEN WO 05/15/2022 10:40 AM FINDINGS: Lungs: Left lung base with minor tree-in-bud type opacification suggesting a developing left lower lobe infiltrate. See series 4, images 1 through 10 with application of lung window. Pleural spaces: No pleural effusion. Heart: Normal heart size. No pericardial effusion. No coronary artery atherosclerotic calcium. Liver: Liver is normal in size and contour. No focal hepatic lesions. Gallbladder and bile ducts: Gallbladder is distended. This is nonspecific. There is no gallbladder wall thickening or inflammation. There is mild intrahepatic biliary dilatation. This is nonspecific. Recommend correlation with serum bilirubin. Common bile duct at the level of the pancreatic head is also mildly prominent at 9 mm. There is no intraluminal obstructing focus evident. Pancreas: Mild pancreatic atrophy is suggested. No focal pancreatic disease. Pancreatic duct at the level of the pancreatic head measuring approximately 4.5 mm. Spleen: Spleen is mildly enlarged at 14 cm AP length. No focal splenic lesions. Punctate lower pole splenic calcification consistent with an old granuloma. Adrenal glands: Normal. No mass. Kidneys and ureters: No acute renal pathology. Left kidney with 2 low-attenuation foci most consistent with cysts. Largest is in the medial upper pole measuring 11 mm. Posterior midpole 8 mm cyst. Small cyst in the lower pole of the left kidney measuring 8 mm. There is a punctate lower pole left renal calculus. No imaging follow-up is recommended based on MIPS criteria. Stomach and bowel: Gastric morphology is unremarkable. No edema. No gastric outlet obstruction. Small bowel loops are normal in course and caliber. There is no mucosal edema or bowel wall thickening. No obstructive features. Large bowel with moderate quantity of formed feces. No edema. No mechanical obstruction. Appendix: No evidence of appendicitis. Intraperitoneal space: No free fluid. No free air. Vasculature: Unremarkable. No abdominal aortic aneurysm. Lymph nodes: No intra-abdominal or retroperitoneal lymphadenopathy. Urinary bladder: Urinary bladder is under distended. Can not exclude wall thickening. Recommend correlation with urinalysis to exclude cystitis. Reproductive: Unremarkable as visualized. Bones/joints: Unremarkable. No acute fracture. Soft tissues: Focal subcutaneous air in the right lower abdominal wall is likely related to a recent medication injection. See series 5, image 541.. IMPRESSION: 1. Mild intrahepatic and extrahepatic biliary dilatation. No definable obstructing focus. Recommend correlation with bilirubin. No acute gallbladder pathology or gallstones evident. 2. Mild splenomegaly. Granulomatous calcification within the spleen. 3. No acute renal pathology. Left renal small cysts and a punctate lower pole nonobstructive calculus. 4. Nonobstructive bowel pattern. 5. Can not exclude bladder wall thickening. Under distended at time of imaging. Recommend correlation with urinalysis to exclude cystitis. XR Chest Exam date and time: 05/19/2022 12:05 AM Age: 26 years old Clinical indication: Cough TECHNIQUE: Imaging protocol: Radiologic exam of the chest. Views: 2 views. COMPARISON: CR XR CHEST 2V PA LATERAL 05/14/2022 5:35 PM FINDINGS: Lungs: Unremarkable. No consolidation. Pleural spaces: Unremarkable. No pleural effusion. No pneumothorax. Heart/Mediastinum: Unremarkable. No cardiomegaly. Bones/joints: Unremarkable. IMPRESSION: 1. No acute findings. 2. No infiltrates. 3. No pleural effusion. 4. Stable exam since 05/14/2022. Lab Data Lab results reviewed: Yes I reviewed the patient's lab results. Labs: Laboratory Tests Range/Units 05/18/22 05/18/22 05/18/22 19:05 19:05 19:25 WBC (4.4-10.8) 10^3/uL 15.10 H RBC (4.36-5.78) 10^6/uL 3.83 L Hgb (13.5-17.5) g/dL 11.8 L Hct (40.0-50.0) % 34.3 L MCV (80-95) fL 90 MCH (27.0-33.0) pg 30.8 MCHC (32.0-36.0) % 34.4 RDW (11.8-14.1) % 11.5 L Plt Count (130-400) 10^3/uL 306 MPV (8.0-11.0) fL 10.9 Immature Gran % 1.9 Neutrophils % 71.9 Lymphocytes % 12.0 Monocytes % 9.6 Eosinophils % 4.2 Basophils % 0.4 Nucleated RBC % (0.0-0.3) % 0.0 Absolute Neutrophils (1.2-6.7) 10^3/uL 10.86 H Absolute Lymphocytes (1.2-3.4) 10^3/uL 1.81 Absolute Monocytes (0.1-0.8) 10^3/uL 1.45 H Absolute Eosinophils (0.0-0.7) 10^3/uL 0.63 Absolute Basophils (0.0-0.2) 10^3/uL 0.06 Sodium (136-145) mmol/L 142 Potassium (3.5-5.1) mmol/L 3.4 L Chloride (98-107) mmol/L 101 Carbon Dioxide (21.0-32.0) mmol/L 31.7 Anion Gap (3-11) mmol/L 9.3 BUN (7-18) mg/dL 12 Creatinine (0.70-1.30) mg/dL 1.3 Est GFR (CKD-EPI 2020) (mL/min/1.73m2) 76.74 Glucose (74-106) mg/dL 106 Calcium (8.5-10.1) mg/dL 8.4 L Magnesium (1.8-2.4) mg/dL 1.5 L Total Bilirubin (0.2-1.0) mg/dL 0.2 AST (15-37) U/L 16 ALT (16-63) U/L 27 Alkaline Phosphatase (46-116) U/L 163 H Total Protein (6.4-8.2) g/dL 7.8 Albumin (3.4-5.0) g/dL 3.4 Lipase (73-393) U/L 70 TSH (0.36-3.74) uIU/mL 1.00 Urine Color (Yellow) Yellow Urine Clarity (Clear) Clear Urine pH (5-8) 7.0 Ur Specific [place] (1.005-1.025) 1.025 Urine Protein (Negative) mg/dL Negative Urine Ketones (Negative) mg/dL Negative Urine Blood (Negative) Negative Urine Nitrite (Negative) Negative Urine Bilirubin (Negative) Negative Urine Urobilinogen (Up TO 0.2) EU/dL 0.2 Ur Leukocyte Esterase (Negative) Negative Urine Glucose (Negative) mg/dL Negative Sign Out No HPI <Ajay Kennedy MD - Last Filed: 05/18/22 19:17> General Date/Time Provider Initiated Documentation: 05/18/22 19:04 . HPI Narrative: 26-year-old male history of parathyroidectomy presents with recurrent abdominal discomfort upper and in nature associate with nausea and vomiting, normal stool earlier today. No history of abdominal surgeries. Related Data Home Medications Medication Instructions Recorded Confirmed methadone 10 mg/5 mL oral solution 110 mg PO QAM 11/16/21 05/18/22 sennosides 8.6 mg tablet (senna) 1 tab PO DAILY 12/20/21 05/18/22 docusate sodium 100 mg capsule 100 mg PO DAILY #60 caps 03/13/22 05/18/22 (Colace) cyclobenzaprine 10 mg tablet 10 mg PO BID #180 tabs 04/19/22 05/18/22 gabapentin 600 mg tablet 600 mg PO TID #270 tabs 04/19/22 05/18/22 calcium carbonate 200 mg calcium 2,000 mg PO QID #0 tabs 05/12/22 05/18/22 (500 mg) chewable tablet (Tums) calcitriol 0.5 mcg capsule 1 mcg PO BID #360 caps 05/13/22 05/18/22 lorazepam 1 mg tablet (Ativan) 1 mg PO TID PRN anxiety #42 tabs 05/13/22 05/18/22 sertraline 150 mg capsule 150 mg PO DAILY #60 caps 05/13/22 05/18/22 trazodone 100 mg tablet 100 mg PO HS #90 tabs 05/13/22 05/18/22 magnesium gluconate 27 mg 1,000 mg PO TID #90 tabs 05/17/22 05/18/22 magnesium (500 mg) tablet Previous Rx's Medication Instructions Recorded docusate sodium 100 mg capsule 100 mg PO DAILY #60 caps 03/13/22 (Colace) cyclobenzaprine 10 mg tablet 10 mg PO BID #180 tabs 04/19/22 gabapentin 600 mg tablet 600 mg PO TID #270 tabs 04/19/22 calcium carbonate 200 mg calcium 2,000 mg PO QID #0 tabs 05/12/22 (500 mg) chewable tablet (Tums) calcitriol 0.5 mcg capsule 1 mcg PO BID #360 caps 05/13/22 lorazepam 1 mg tablet (Ativan) 1 mg PO TID PRN anxiety #42 tabs 05/13/22 sertraline 150 mg capsule 150 mg PO DAILY #60 caps 05/13/22 trazodone 100 mg tablet 100 mg PO HS #90 tabs 05/13/22 magnesium gluconate 27 mg 1,000 mg PO TID #90 tabs 05/17/22 magnesium (500 mg) tablet Allergies Allergy/AdvReac Type Severity Reaction Status Date / Time codeine Allergy Intermediate Verified 05/18/22 18:12 General Stated Complaint: Abd Prob ADRIANA: 3 Review of Systems <Ajay Kennedy MD - Last Filed: 05/18/22 19:17> Narrative: Review of Systems Constitutional: negative Eyes: negative ENT: negative Cardiovascular: negative Respiratory: negative Gastrointestinal: Nausea vomiting : negative Musculoskeletal: negative Skin: negative Neurologic: negative Psych: negative PFSH <Ajay Kennedy MD - Last Filed: 05/18/22 19:17> All Active Problems (Updated 05/19/22 @ 03:01 by Breonna Bates DO) Abdominal pain (Acute) Back pain (Acute) Nausea and vomiting (Acute) Abnormal CT scan, kidney (Acute) Intrahepatic bile duct dilation (Acute) Common bile duct dilatation (Acute) Hypomagnesemia (Acute) Abdominal pain (Acute) Iatrogenic hypocalcemia (Acute) Multiple endocrine neoplasia type I (Chronic) Chronic constipation (Chronic) Primary hyperparathyroidism (Chronic) Depression (Chronic) Chest wall pain (Acute) Chronic chest pain (Acute) Acute thoracic myofascial strain (Acute) Anemia (Chronic) Fatigue (Acute) Hypocalcemia (Chronic) Hypomagnesemia (Chronic) Depression (Chronic) Suicidal ideation (Acute) Elevated parathyroid hormone (Acute) Family history of coronary arteriosclerosis (Chronic) Father of HI at 50, mother had HI at 42 Severe anxiety with panic (Acute) Cellulitis (Acute) Medical History Anxiety Depression Family history of multiple endocrine neoplasia, type 1 Hyperlipidemia Hypocalcemia PTSD (post-traumatic stress disorder) Surgical History H/O parathyroidectomy Family History Mother Anxiety Asthma Depression Sister Anxiety Depression Father Cancer lung & stomach Depression Diabetes Hypertension MEN 1 (multiple endocrine neoplasia) Social History Smoking/Tobacco Use Status: Never Smoking risk assessment performed?: Yes Alcohol Intake: never Drug 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 Adopted: No Caregiver/Support person: No Foster care: No Household members: none Housing: house Number of Children: 0 Communication Needs: None Education Level: high school Do you need help understanding health information?: Never 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 and animals: Yes (Ally) Pets and animals: dog(s) Sexually active: No Do you think of yourself as: straight/heterosexual Current gender identity: male What is your relationship status?: How often do you talk on the phone with friends or family?: twice per week How often do you get together with friends or relatives?: never Do you belong to any clubs or organized social groups?: no Panel score (0-1 are the most socially isolated patients): 0 What type of physical activity do you participate in: walking Duration: 15-30 minutes/day Frequency: 5-6 times per week Maryam/Islam: Orthodox Special maryam needs: No Seatbelt use: always Helmet use: Yes Helmet use: always Drive 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 day haul or farm charter bus 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 Exam <Ajay Kennedy MD - Last Filed: 05/18/22 19:17> Narrative Exam Narrative: Physical Examination General: alert, awake, cooperative, appears uncomfortable HEENT: normocephalic, atraumatic; PERRL, EOM intact, conjunctiva normal; no nasal discharge; moist mucous membranes, oral and pharyngeal mucosa normal, tolerating secretions Neck: supple, trachea midline; full ROM Chest: normal to inspection Respiratory: normal respiratory effort, speaking in full sentences, clear to auscultation, no wheezing, rales or rhonchi Cardiac: regular rate, regular rhythm, S1S2 intact, no murmurs rubs or gallops GI: abdomen soft, non-tender, non-distended; no palpable mass or hepatosplenomegaly Skin: no lesions, rashes or trauma appreciated Neuro: AAOx3, normal speech, moving all extremities Psych: Appropriate mood and affect Course <Ajay Kennedy MD - Last Filed: 05/18/22 19:17> Vital Signs Vital signs: Vital Signs Temperature 36.8 C 05/18/22 18:09 Pulse 129 H 05/18/22 18:09 Respiratory Rate 16 05/18/22 18:09 Blood Pressure 136/120 H 05/18/22 18:09 Pulse Oximetry 94 05/18/22 18:09 Temperature 36.8 C 05/18/22 18:09 Temperature Source Oral 05/18/22 18:09 Pulse 131 H 05/18/22 18:16 Respiratory Rate 16 05/18/22 18:16 Respiratory Effort Non-Labored 05/18/22 18:14 Blood Pressure 117/72 05/18/22 18:16 Blood Pressure Position Sitting 05/18/22 18:09 Pulse Oximetry 95 05/18/22 18:16 Oxygen Delivery Method Room Air 05/18/22 18:16 Oxygen Flow Rate 0 05/18/22 18:16 Pain Level 7 05/18/22 18:09 Sign Out <Ajay Kennedy MD - Last Filed: 05/18/22 19:17> Sign Out Data: Sign Out Comment: abd pain nausea vomiting; followup labs and CT for dispo Last updated by Ajay Kennedy MD at 05/18/22 19:57
[2022-05-18] MEDS: Normal Saline 1,000 ML 1000 ML IV ×2 (19:22→23:15)
[2022-05-18] MEDS: Ondansetron 4 MG/2 ML VIAL IVP (19:22)
[2022-05-18] MEDS: Ketorolac 15 MG/ML VIAL IVP (19:22)
[2022-05-18 19:30] LABS: Abs Immature Grans 0.28 10^3/uL (0.0-0.06); Absolute Basophil Count 0.06 10^3/uL (0.0-0.2); Absolute Eosinophil Count 0.63 10^3/uL (0.0-0.7); Absolute Lymphocyte Count 1.81 10^3/uL (1.2-3.4); Absolute Monocyte Count 1.45 10^3/uL (0.1-0.8); Absolute Neutrophil Count 10.86 10^3/uL (1.2-6.7); Basophils % 0.4; Eosinophils % 4.2; HCT 34.3 % (40.0-50.0); HGB 11.8 g/dL (13.5-17.5); Immature Grans % 1.9; MCH 30.8 pg (27.0-33.0); MCHC 34.4 % (32.0-36.0); MCV 90 fL (80-95); MPV 10.9 fL (8.0-11.0); Monocytes % 9.6; Neutrophils % 71.9; Platelet Count 306 10^3/uL (130-400); RBC 3.83 10^6/uL (4.36-5.78); RDW 11.5 % (11.8-14.1); RDW-SD 37.2 fL
[2022-05-18 19:34] LABS: Bilirubin Negative (Negative); Blood Negative (Negative); Clarity Clear (Clear); Glucose Negative (Negative); Ketones Negative (Negative); Leukocyte Esterase Negative (Negative); Nitrite Negative (Negative); Specific Gravity 1.025 (1.005-1.025); Urobilinogen 0.2 EU/dL (Up TO 0.2)
[2022-05-18] MEDS: Omnipaque 350 MG/ML 100 ML BTL IJ (19:42)
--- NOTE | 2022-05-18 19:47 | DI.CT_ITS ---
Exam(s) CT ABDOMEN PELVIS W EXAM: CT ABDOMEN PELVIS W CLINICAL HISTORY: upper abd pain, nausea, vomiting TECHNIQUE: COMPARISON: CT CT ABDOMEN PELVIS W from 05/14/2022 FINDINGS: CT examination of the abdomen and pelvis was performed with bolus infusion of 100 cc of Omnipaque 350 . Images obtained through the lung bases are unremarkable. The liver appears normal with no evidence of a focal mass. Spleen is unremarkable in appearance.. The gallbladder is mildly distended and there is dilatation of extrahepatic bile ducts, common bile d uct measures up to about 12 millimeters in diameter. No definite intraluminal calcification seen per iod. Pancreas is unremarkable in appearance. Adrenals appear normal bilaterally. There is a tiny nonobstructing left lower pole renal calculus and a couple of small apparent left kriss al cysts period no evidence of hydronephrosis of either right or left kidney. No ureterolithiasis. Urinary bladder nearly empty period. Unremarkable bladder. There is no evidence of abdominal or pelvic adenopathy. Abdominal aorta is of normal diameter and no abnormality is seen involving major visceral branches.. Appendix is normal. No evidence diverticulitis or bowel obstruction. No significant abdominal wall hernia seen. Impression: Biliary dilatation noted, please correlate with serum bilirubin. Additional evaluation with MRCP may be considered if clinically appropriate.. RADIATION DOSE DELIVERED: 1,267.51mGy.cm Total DLP 1,267.51mGy.cm Total DLP DATA REPOSITORY: All CT scans at this facility are submitted to the National Radiology Data Registry (NRDR) Dose Index Registry (DIR) with the [employer] (ACR). RADIATION OPTIMIZATION: All CT scans at this facility use at least one of these dose optimization te chniques: automated exposure control; mA and/or kV adjustment per patient size (includes targeted exa ms where dose is matched to clinical indication); or iterative reconstruction.
[2022-05-18 19:51] LABS: ALT 27 U/L (16-63); AST 16 U/L (15-37); Albumin 3.4 g/dL (3.4-5.0); Alkaline Phosphatase 163 U/L (46-116); Anion Gap 9.3 mmol/L (3-11); BUN 12 mg/dL (7-18); Bilirubin, Total 0.2 mg/dL (0.2-1.0); CO2 31.7 mmol/L (21.0-32.0); CREATININE 1.3 mg/dL (0.70-1.30); Calcium 8.4 mg/dL (8.5-10.1); Chloride 101 mmol/L (98-107); Estimated GFR 76.74 (mL/min/1.73m2); Glucose 106 mg/dL (74-106); Lipase 70 U/L (73-393); Magnesium 1.5 mg/dL (1.8-2.4); Potassium 3.4 mmol/L (3.5-5.1); Sodium 142 mmol/L (136-145); Total Protein 7.8 g/dL (6.4-8.2)
[2022-05-18] MEDS: Normal Saline - Diluent 50 ML VIAL IJ (19:52)
--- NOTE | 2022-05-18 20:20 | DI.VRAD_ITS ---
Addendum created by Jean Marie Pierson MD on 05/18/2022 8:25:11 PM EST: The impression should also contain a statement regarding early infiltrative changes of the left lung base with minor tree-in-bud opacification. Initial report created on 05/18/2022 8:20:16 PM EST: PROCEDURE INFORMATION: Exam: CT Abdomen And Pelvis With Contrast Exam date and time: 05/18/2022 7:40 PM Age: 26 years old Clinical indication: Nausea and vomiting; Abdominal pain; Patient HX: Upper abd pain, nausea, vomiting TECHNIQUE: Imaging protocol: Computed tomography of the abdomen and pelvis with contrast. COMPARISON: MR ABDOMEN WO 05/15/2022 10:40 AM FINDINGS: Lungs: Left lung base with minor tree-in-bud type opacification suggesting a developing left lower lobe infiltrate. See series 4, images 1 through 10 with application of lung window. Pleural spaces: No pleural effusion. Heart: Normal heart size. No pericardial effusion. No coronary artery atherosclerotic calcium. Liver: Liver is normal in size and contour. No focal hepatic lesions. Gallbladder and bile ducts: Gallbladder is distended. This is nonspecific. There is no gallbladder wall thickening or inflammation. There is mild intrahepatic biliary dilatation. This is nonspecific. Recommend correlation with serum bilirubin. Common bile duct at the level of the pancreatic head is also mildly prominent at 9 mm. There is no intraluminal obstructing focus evident. Pancreas: Mild pancreatic atrophy is suggested. No focal pancreatic disease. Pancreatic duct at the level of the pancreatic head measuring approximately 4.5 mm. Spleen: Spleen is mildly enlarged at 14 cm AP length. No focal splenic lesions. Punctate lower pole splenic calcification consistent with an old granuloma. Adrenal glands: Normal. No mass. Kidneys and ureters: No acute renal pathology. Left kidney with 2 low-attenuation foci most consistent with cysts. Largest is in the medial upper pole measuring 11 mm. Posterior midpole 8 mm cyst. Small cyst in the lower pole of the left kidney measuring 8 mm. There is a punctate lower pole left renal calculus. No imaging follow-up is recommended based on MIPS criteria. Stomach and bowel: Gastric morphology is unremarkable. No edema. No gastric outlet obstruction. Small bowel loops are normal in course and caliber. There is no mucosal edema or bowel wall thickening. No obstructive features. Large bowel with moderate quantity of formed feces. No edema. No mechanical obstruction. Appendix: No evidence of appendicitis. Intraperitoneal space: No free fluid. No free air. Vasculature: Unremarkable. No abdominal aortic aneurysm. Lymph nodes: No intra-abdominal or retroperitoneal lymphadenopathy. Urinary bladder: Urinary bladder is under distended. Can not exclude wall thickening. Recommend correlation with urinalysis to exclude cystitis. Reproductive: Unremarkable as visualized. Bones/joints: Unremarkable. No acute fracture. Soft tissues: Focal subcutaneous air in the right lower abdominal wall is likely related to a recent medication injection. See series 5, image 541.. IMPRESSION: 1. Mild intrahepatic and extrahepatic biliary dilatation. No definable obstructing focus. Recommend correlation with bilirubin. No acute gallbladder pathology or gallstones evident. 2. Mild splenomegaly. Granulomatous calcification within the spleen. 3. No acute renal pathology. Left renal small cysts and a punctate lower pole nonobstructive calculus. 4. Nonobstructive bowel pattern. 5. Can not exclude bladder wall thickening. Under distended at time of imaging. Recommend correlation with urinalysis to exclude cystitis. Dictated and Authenticated by: Jean Marie Pierson MD. Ordering:TOBI Moss MD
[2022-05-18] MEDS: MAGNESIUM SULFATE 2 GM/50 ML BAG IVPB (20:46)
--- NOTE | 2022-05-18 23:00 | DI.RAD_ITS ---
Exam(s) XR CHEST 2V PA LATERAL EXAM: XR CHEST 2V PA LATERAL CLINICAL HISTORY: possible infiltrate LLL on CT, r/o pneumonia TECHNIQUE: 2D digital imaging was performed. COMPARISON: CR,XR XR CHEST 2V PA LATERAL from 05/14/2022 FINDINGS: The heart is not enlarged. The lungs are clear and well expanded. No pleural effusion seen. Mediastin al contours appear intact. IMPRESSION: Normal chest. Please note that CT of the abdomen obtained yesterday showed left basilar intrapulmona ry opacities suspicious for pneumonia, the negative chest radiograph does not exclude pneumonia since chest CT is more sensitive in detecting pneumonia than is chest radiography. RADIATION DOSE DELIVERED: Total DLP
[2022-05-18] MEDS: diazePAM 5 MG TAB PO (23:14)
[2022-05-18] MEDS: HYDROmorphone 2 MG/ML SYR 1 MG IVP (23:14)
[2022-05-19 00:16] LABS: Bilirubin Negative (Negative); Blood Negative (Negative); Clarity Clear (Clear); Glucose Negative (Negative); Ketones Negative (Negative); Leukocyte Esterase Negative (Negative); Nitrite Negative (Negative); Specific Gravity 1.015 (1.005-1.025); Urobilinogen 0.2 EU/dL (Up TO 0.2)
--- NOTE | 2022-05-19 00:16 | DI.VRAD_ITS ---
PROCEDURE INFORMATION: Exam: XR Chest Exam date and time: 05/19/2022 12:05 AM Age: 26 years old Clinical indication: Cough TECHNIQUE: Imaging protocol: Radiologic exam of the chest. Views: 2 views. COMPARISON: CR XR CHEST 2V PA LATERAL 05/14/2022 5:35 PM FINDINGS: Lungs: Unremarkable. No consolidation. Pleural spaces: Unremarkable. No pleural effusion. No pneumothorax. Heart/Mediastinum: Unremarkable. No cardiomegaly. Bones/joints: Unremarkable. IMPRESSION: 1. No acute findings. 2. No infiltrates. 3. No pleural effusion. 4. Stable exam since 05/14/2022. Dictated and Authenticated by: Jean Marie Pierson MD. Ordering:JOSEPH Ravi MD
[2022-05-19] MEDS: HYDROmorphone 2 MG/ML SYR 1 MG IVP (01:22)
[2022-05-19 03:17] VITALS: BP 109/72; PULSE 70; RESP 15; TEMP 36.7; O2SAT 95
[2022-05-19 03:30] VITALS: BP 109/72; PULSE 70; RESP 15; TEMP 36.7; O2SAT 95
== END 2022-05-19 06:50 | disposition home or self-care (01) ==
PROVIDERS: Emergency Medicine; Emergency Provider Physician Assistant; PCP Family Medicine
DX: R11.2 Nausea with vomiting, unspecified (principal); R10.13 Epigastric pain; M54.9 Dorsalgia, unspecified; E83.42 Hypomagnesemia
CPT/HCPCS: 36415; 80053; 83690; 93005; 96361; 96365; 96366; 96375; 96376; 99285; 71046; 74177; 81003; 83735; 84443; 85025; 93010; J1170; J1885; J2405; J3490

== ENCOUNTER 2022-06-04 12:55 | Emergency (ER) | payer OTHER, SELFPAY ==
--- NOTE | 2022-06-04 12:45 | RT.EKG_ITS ---
APPROVED REPORT Exam: Resting ECG Reason for Exam: chest pain Patient Location: E HR:99 bpm ECG Measurements Heart Rate 99 AXIS ME 171 P 44 QRSd 96 QRS 46 QT 370 T 1 QTc 475 Conclusion Sinus rhythm...normal P axis, V-rate 60- 99
[2022-06-04 13:01] VITALS: BP 111/79; PULSE 98; RESP 18; TEMP 36.8; O2SAT 95
[2022-06-04 13:07] VITALS: RESP 16
--- NOTE | 2022-06-04 14:29 | NUR.NOTE ---
left without being seen
== END 2022-06-04 14:28 | disposition left against medical advice (07) ==
PROVIDERS: PCP Family Medicine
DX: Z53.21 Procedure and treatment not carried out due to patient leaving prior to being seen by health care provider (principal)
CPT/HCPCS: 93005; 93010

== ENCOUNTER 2022-06-11 14:20 | Emergency (ER) | payer OTHER, SELFPAY ==
--- NOTE | 2022-06-11 14:15 | RT.EKG_ITS ---
APPROVED REPORT Exam: Resting ECG Reason for Exam: CHEST PAIN Patient Location: E HR:81 bpm ECG Measurements Heart Rate 81 AXIS AZ 190 P 71 QRSd 102 QRS 60 QT 391 T 31 QTc 455 Conclusion Sinus rhythm...normal P axis, V-rate 60- 99
[2022-06-11 14:28] VITALS: BP 145/97; PULSE 80; RESP 20; TEMP 37; O2SAT 97
[2022-06-11 14:45] VITALS: RESP 18
--- NOTE | 2022-06-11 14:45 | DI.CT_ITS ---
Exam(s) CT HEAD WO EXAM: CT HEAD WO CLINICAL HISTORY: Headache. TECHNIQUE: Imaging Protocol: Axial computed tomography images with coronal and sagittal reformatted images were created and reviewed COMPARISON: CT HEAD WITHOUT CONTRAST from 04/04/2008 FINDINGS: There are no skull fractures. There is mild mucosal thickening in the posterior wall the left maxilla ry sinus, but not associated with a fluid level. There is no evidence of intracranial hemorrhage, mass effect, or shift of midline structures. There are no extra-axial fluid collections. The ventricles are not enlarged or shifted and there is no blo od within the ventricular system nor within the basal cisterns. IMPRESSION: No acute intracranial findings on this noninfused CT scan of the brain. Mild mucosal thickening incidentally noted in the left maxillary sinus. Called by myself to ER RADIATION DOSE DELIVERED: 778.91mGy.cm Total DLP DATA REPOSITORY: All CT scans at this facility are submitted to the National Radiology Data Registry (NRDR) Dose Index Registry (DIR) with the [employer] ([employer]). RADIATION OPTIMIZATION: All CT scans at this facility use at least one of these dose optimization te chniques: automated exposure control; mA and/or kV adjustment per patient size (includes targeted exa ms where dose is matched to clinical indication); or iterative reconstruction.
--- NOTE | 2022-06-11 14:59 | W.ED.GENAD ---
Discharge Plan Disposition Patient Disposition: Home Condition: Improving Discharge Details Clinical Impression: Hypercalcemia due to a drug, FLORESITA (acute kidney injury) Primary Care Provider: Brendon Vivar ED Provider: Crow Gama Home Meds and New Rx's Prescriptions: Continued cyclobenzaprine 10 mg tablet 10 mg PO BID Qty: 180 3RF calcitriol 0.5 mcg capsule 1 mcg PO BID Qty: 360 3RF Hold Instructions: Resume on 06/15/22. trazodone 100 mg tablet 100 mg PO HS Qty: 90 3RF lorazepam [Ativan] 1 mg tablet 1 mg PO TID PRN (Reason: anxiety) Qty: 42 0RF acetaminophen 325 mg capsule 650 mg PO Q6H PRN polyethylene glycol 3350 [Miralax] 17 gram powder in packet 17 g PO DAILY naloxegol 12.5 mg tablet 12.5 mg PO QAM Qty: 60 0RF Rx Instructions: must be taken on empty stomach; no food 1 hr after or 2-3 hrs before dose methadone 10 mg/5 mL solution 110 mg PO QAM magnesium gluconate 27 mg magnesium (500 mg) Tablet 1,000 mg PO TID Qty: 90 0RF gabapentin 600 mg tablet 800 mg PO TID Changed calcium carbonate [Tums] 200 mg calcium (500 mg) tablet,chewable 2,000 mg PO BID Qty: 0 0RF Hold Instructions: Resume on 06/15/22. No Action fluoxetine 20 mg capsule 60 mg PO DAILY Qty: 90 0RF Discharge Instructions Instructions: Acute Kidney Injury (DC), Hypercalcemia (ED) Additional Instructions: As discussed please take your medication as prescribed and recommended at time of discharge from [facility]. Also as discussed you may hold your evening medication and only take a half dose tomorrow morning then resume your standard dosing. While on this medication and in general it is very important that you try to drink 3 L of water daily. We have put in a referral for you to follow-up with your primary care provider in 48 hours for a lab recheck but if you develop any new or worsening symptoms return immediately to the emergency department for reassessment. Referrals: Brendon Vivar DO [Primary Care Provider] - 2 days Discharge Data Discharge Date/Time-TO BE ENTERED AT DEPARTURE: 06/11/22 19:06 Medical Decision Making <Antoinette Templeton NP - Last Filed: 06/13/22 08:43> 26-year-old male with a past medical history of recent parathyroidectomy in March, iatrogenic hypocalcemia, multiple endocrine neoplasia, PTSD, anxiety depression hyperlipidemia presents to the ER with a chief complaint of chest pain which he reports spread over to his right side which is atypical for his recurrent chest pain. He also endorses frontal headache, blurry vision, being forgetful and dropping items for the last 2 weeks. Work-up ordered including EKG, troponin, head CT, CBC CMP. MP shows critical lab value of calcium of 14.0, potassium 3.4, BUN 18 creatinine 2.1 GFR 43 Patient has been taking Calcitrol and 2000 mg of Tums twice daily which he reports has been decreased from 5 times daily. He was recently admitted and discharged from [facility] 2 weeks ago. Liter of normal saline ordered. Care is to be handed off to oncoming provider Scooter Gama pending endocrinology consult and further work-up and evaluation. 40 mEq of potassium ordered p.o. ND 1600-patient signed out to me pending 2 L of NS and repeat of calcium due to hypercalcemia. Please see previous documentation for initial work-up by Antoinette Templeton NP. We will continue to monitor patient, due to patient being symptomatic and limited bed availability we will plan on touching base with [facility] endocrinology for further discussion of care patient. Medical Records Medical records reviewed: Yes I reviewed the patient's medical records. Lab Data Lab results reviewed: Yes I reviewed the patient's lab results. Labs: Laboratory Tests Range/Units 06/11/22 06/11/22 14:40 14:40 WBC (4.4-10.8) 10^3/uL 8.46 RBC (4.36-5.78) 10^6/uL 3.82 L Hgb (13.5-17.5) g/dL 11.8 L Hct (40.0-50.0) % 35.2 L MCV (80-95) fL 92 MCH (27.0-33.0) pg 30.9 MCHC (32.0-36.0) % 33.5 RDW (11.8-14.1) % 12.1 Plt Count (130-400) 10^3/uL 296 MPV (8.0-11.0) fL 10.8 Immature Gran % 0.4 Neutrophils % 61.6 Lymphocytes % 22.9 Monocytes % 9.5 Eosinophils % 4.8 Basophils % 0.8 Nucleated RBC % (0.0-0.3) % 0.0 Absolute Neutrophils (1.2-6.7) 10^3/uL 5.21 Absolute Lymphocytes (1.2-3.4) 10^3/uL 1.94 Absolute Monocytes (0.1-0.8) 10^3/uL 0.80 Absolute Eosinophils (0.0-0.7) 10^3/uL 0.41 Absolute Basophils (0.0-0.2) 10^3/uL 0.07 Sodium (136-145) mmol/L 139 Potassium (3.5-5.1) mmol/L 3.4 L Chloride (98-107) mmol/L 100 Carbon Dioxide (21.0-32.0) mmol/L 35.5 H Anion Gap (3-11) mmol/L 3.5 BUN (7-18) mg/dL 18 Creatinine (0.70-1.30) mg/dL 2.1 H Est GFR (CKD-EPI 2020) (mL/min/1.73m2) 43.16 Glucose (74-106) mg/dL 120 H Calcium (8.5-10.1) mg/dL 14.0 H* Magnesium (1.8-2.4) mg/dL 2.2 Total Bilirubin (0.2-1.0) mg/dL 0.5 AST (15-37) U/L 15 ALT (16-63) U/L 27 Alkaline Phosphatase (46-116) U/L 145 H Troponin I (<or=60) ng/L < 50 Total Protein (6.4-8.2) g/dL 8.4 H Albumin (3.4-5.0) g/dL 3.8 <Crow Gama HALL PORTER - Last Filed: 06/11/22 21:47> 26-year-old male with a past medical history of recent parathyroidectomy in March, iatrogenic hypocalcemia, multiple endocrine neoplasia, PTSD, anxiety depression hyperlipidemia presents to the ER with a chief complaint of chest pain which he reports spread over to his right side which is atypical for his recurrent chest pain. He also endorses frontal headache, blurry vision, being forgetful and dropping items for the last 2 weeks. Work-up ordered including EKG, troponin, head CT, CBC CMP. MP shows critical lab value of calcium of 14.0, potassium 3.4, BUN 18 creatinine 2.1 GFR 43 Patient has been taking Calcitrol and 2000 mg of Tums twice daily which he reports has been decreased from 5 times daily. He was recently admitted and discharged from [facility] 2 weeks ago. Liter of normal saline ordered. Care is to be handed off to oncoming provider Scooter Gama pending endocrinology consult and further work-up and evaluation. 40 mEq of potassium ordered p.o. ND 1600-patient signed out to me pending 2 L of NS and repeat of calcium due to hypercalcemia. Please see previous documentation for initial work-up by Antoinette Templeton NP. We will continue to monitor patient, due to patient being symptomatic and limited bed availability we will plan on touching base with [facility] endocrinology for further discussion of care patient. 1650-patient reassessed and states improvement of symptoms and is requesting to go home. Patient still has an additional liter of normal saline to finish before consideration of repeat labs for hypercalcemia patient is agreeable to receiving additional liter of labs and will call endocrinology prior to repeat testing. Patient does endorse that he has been taking 2000 mg of calcium a day along with 8 doses of the Calcitrol. Spoke with endocrinology that recommended to recheck patient's calcium after the 2 L of fluids. They did state that patient is not taking medications appropriately and that he should be taking 2000 mg of calcium carbonate twice daily and 1mcg of Calcitrol twice daily. I did state that if patient's calcium did improve given that he is now asymptomatic that he would be appropriate for discharge with the recommended dose changes. Otherwise they recommended continuing to observe patient. Reassessed patient after completion of second liter of fluids and review of labs. Patient continues to endorse feeling significantly better. Patient's repeat calcium was still elevated at 12.6. Creatinine and GFR did improve after additional fluids. Thoroughly discussed with patient further hydration and observation in the emergency department with repeat of labs but again patient is wanting to go home. Given that I do feel we identified the source of patient's hypercalcemia being that he was not taking his medications correctly I am comfortable discharging patient at this point. He does state clear understanding to return to the emergency department for any change in symptoms. Patient will hold his calcium and Calcitrol this evening and will do a half dose tomorrow morning. Then he will resume his normally prescribed medications that were discussed given that he was taking the twice the amount of Calcitrol as prescribed. Will recommend patient have follow-up with his primary care provider in 48 hours for lab recheck. After discussion of diagnosis and plan of care patient has no further needs, questions, or concerns and states clear understanding to return to the emergency department for any worsening symptoms. This documentation was generated using [employer] dictation system, please disregard any oddities of phrase or misspellings. HPI <Antoinette Templeton NP - Last Filed: 06/13/22 08:43> General Mode of arrival: ambulatory. Date/Time Provider Initiated Documentation: 06/11/22 14:36. Limitations to Documentation: no limitations. Information obtained by: patient, RN notes reviewed and old records reviewed. HPI Narrative: 26-year-old male with a past medical history of recent parathyroidectomy in March, iatrogenic hypocalcemia, multiple endocrine neoplasia, PTSD, anxiety depression hyperlipidemia presents to the ER with a chief complaint of chest pain which he reports spread over to his right side which is atypical for his recurrent chest pain. He also endorses frontal headache, blurry vision, being forgetful and dropping items for the last 2 weeks. Related Data Home Medications Medication Instructions Recorded Confirmed methadone 10 mg/5 mL oral solution 110 mg PO QAM 11/16/21 06/12/22 cyclobenzaprine 10 mg tablet 10 mg PO BID #180 tabs 04/19/22 06/12/22 calcitriol 0.5 mcg capsule 1 mcg PO BID #360 caps 05/13/22 06/12/22 lorazepam 1 mg tablet (Ativan) 1 mg PO TID PRN anxiety #42 tabs 05/13/22 06/12/22 trazodone 100 mg tablet 100 mg PO HS #90 tabs 05/13/22 06/12/22 magnesium gluconate 27 mg 1,000 mg PO TID #90 tabs 05/17/22 06/12/22 magnesium (500 mg) tablet gabapentin 600 mg tablet 800 mg PO TID 06/04/22 06/12/22 acetaminophen 325 mg capsule 650 mg PO Q6H PRN 06/07/22 06/12/22 naloxegol 12.5 mg tablet 12.5 mg PO QAM #60 tabs 06/07/22 06/12/22 polyethylene glycol 3350 17 gram 17 g PO DAILY 06/07/22 06/12/22 oral powder packet (Miralax) calcium carbonate 200 mg calcium 2,000 mg PO BID #0 tabs 06/11/22 06/12/22 (500 mg) chewable tablet (Tums) fluoxetine 20 mg capsule 60 mg PO DAILY #90 caps 06/12/22 06/12/22 Previous Rx's Medication Instructions Recorded cyclobenzaprine 10 mg tablet 10 mg PO BID #180 tabs 04/19/22 calcitriol 0.5 mcg capsule 1 mcg PO BID #360 caps 05/13/22 lorazepam 1 mg tablet (Ativan) 1 mg PO TID PRN anxiety #42 tabs 05/13/22 trazodone 100 mg tablet 100 mg PO HS #90 tabs 05/13/22 magnesium gluconate 27 mg 1,000 mg PO TID #90 tabs 05/17/22 magnesium (500 mg) tablet naloxegol 12.5 mg tablet 12.5 mg PO QAM #60 tabs 06/07/22 calcium carbonate 200 mg calcium 2,000 mg PO BID #0 tabs 06/11/22 (500 mg) chewable tablet (Tums) fluoxetine 20 mg capsule 60 mg PO DAILY #90 caps 06/12/22 Allergies Allergy/AdvReac Type Severity Reaction Status Date / Time codeine Allergy Intermediate Verified 06/12/22 12:06 General Stated Complaint: Chest Pain ADRIANA: 3 Review of Systems <Antoinette Templeton NP - Last Filed: 06/13/22 08:43> All systems reviewed & are unremarkable except as noted in HPI and below Constitutional Constitutional: Reports as per HPI, Denies chills, Denies fever(s) and Reports headache(s) ENT Ears, Nose, Mouth, and Throat: Reports headache(s) Neurologic Neurologic: Reports headache(s) PFSH <Antoinette Templeton NP - Last Filed: 06/13/22 08:43> All Active Problems Hypercalcemia due to a drug (Acute) FLORESITA (acute kidney injury) (Acute) Hypercalcemia (Acute) Acute renal insufficiency (Acute) Acute left flank pain (Acute) Therapeutic opioid induced constipation (Acute) Sphincter of Oddi dysfunction (Acute) Abdominal pain (Acute) Back pain (Acute) Nausea and vomiting (Acute) Abnormal CT scan, kidney (Acute) Intrahepatic bile duct dilation (Acute) Common bile duct dilatation (Acute) Hypomagnesemia (Acute) Abdominal pain (Acute) Iatrogenic hypocalcemia (Acute) Multiple endocrine neoplasia type I (Chronic) Chronic constipation (Chronic) Primary hyperparathyroidism (Chronic) Depression (Chronic) Hypocalcemia (Chronic) Hypomagnesemia (Chronic) Depression (Chronic) Suicidal ideation (Acute) Elevated parathyroid hormone (Acute) Family history of coronary arteriosclerosis (Chronic) Father of VA at 50, mother had VA at 42 Severe anxiety with panic (Acute) Cellulitis (Acute) Medical History Anxiety Depression Family history of multiple endocrine neoplasia, type 1 Hyperlipidemia Hypocalcemia PTSD (post-traumatic stress disorder) Surgical History H/O parathyroidectomy Family History Mother Anxiety Asthma Depression Sister Anxiety Depression Father Cancer lung & stomach Depression Diabetes Hypertension MEN 1 (multiple endocrine neoplasia) Social History Smoking/Tobacco Use Status: Never Smoking risk assessment performed?: Yes Alcohol Intake: never Drug 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 Adopted: No Caregiver/Support person: No Foster care: No Household members: none Housing: house Number of Children: 0 Communication Needs: None Education Level: high school Do you need help understanding health information?: Never 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 and animals: Yes (Ally) Pets and animals: dog(s) Sexually active: No Do you think of yourself as: straight/heterosexual Current gender identity: male What is your relationship status?: How often do you talk on the phone with friends or family?: twice per week How often do you get together with friends or relatives?: never Do you belong to any clubs or organized social groups?: no Panel score (0-1 are the most socially isolated patients): 0 What type of physical activity do you participate in: walking Duration: 15-30 minutes/day Frequency: 5-6 times per week Maryam/Buddhist: Jehovah'S Witness Special maryam needs: No Seatbelt use: always Helmet use: Yes Helmet use: always Drive 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 company 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 Exam <Antoinette Templeton NP - Last Filed: 06/13/22 08:43> Narrative Exam Narrative: Constitutional: Alert and oriented x3. Appears stated age. Normal body habitus. Head: Normocephalic, no trauma. Eyes: Pupils PERRL, Red reflex noted, EOM's intact. Eyelids symmetrical without lesions, discharge, or swelling. ENT: Bilateral TM's WNL, External ear normal to inspection, no mastoid TTP, swelling, or erythema, Nasal turbinates WNL, no nasal discharge. Normal dentition, Posterior pharynx WNL, no exudate. Chest: RRR, Normal S1, S2, distal pulses intact. Resp: Lungs clear to auscultation bilaterally, no wheezes, rales, or rhonchi. Abdomen: Soft, non-distended, Normoactive bowel sounds all 4 quads. Musculoskeletal: Normal gait, 5/5 strength to all four extremities. Skin: No suspicious rashes or lesions. Capillary refill less than 2 sec. Neurologic: Cranial nerves II-XII intact. Alert and oriented x 3. Motor: No deficits noted. Sensory: Intact bilaterally all 4 extremities. Reflexes: DTR's intact bilaterally.. Does have some fasciculations with dorsiflexion pedal flexion bilaterally. Hematologic/Lymphatic: No ecchymosis, no lymphadenopathy. Course <Antoinette Templeton NP - Last Filed: 06/13/22 08:43> Vital Signs Vital signs: Vital Signs Temperature 37.0 C 06/11/22 14:28 Pulse 80 06/11/22 14:28 Respiratory Rate 20 06/11/22 14:28 Blood Pressure 145/97 H 06/11/22 14:28 Pulse Oximetry 97 06/11/22 14:28 Temperature 37.0 C 06/11/22 14:28 Temperature Source Temporal Artery Scan 06/11/22 14:28 Pulse 80 06/11/22 14:28 Respiratory Rate 18 06/11/22 14:45 Respiratory Effort Non-Labored 06/11/22 14:45 Respiratory Depth Normal 06/11/22 14:45 Respiratory Pattern Normal 06/11/22 14:45 Blood Pressure 145/97 H 06/11/22 14:28 Blood Pressure Position Supine 06/11/22 14:28 Pulse Oximetry 97 06/11/22 14:28 Oxygen Delivery Method Room Air 06/11/22 14:28 Oxygen Flow Rate 0 06/11/22 14:28 Pain Level 4 06/11/22 14:45 Sign Out <Antoinette Templeton NP - Last Filed: 06/13/22 08:43> Sign Out Data: Sign Out Comment: History of parathyroidectomy, calcium is 14, complains of chest pain headache CT is negative, he does have tremors to his bilateral lower extremities. Pending endocrinology consult at [facility] and or treatment for the hypercalcemia. Last updated by Antoinette Templeton NP at 06/11/22 15:45
[2022-06-11 15:03] LABS: Abs Immature Grans 0.03 10^3/uL (0.0-0.06); Absolute Basophil Count 0.07 10^3/uL (0.0-0.2); Absolute Eosinophil Count 0.41 10^3/uL (0.0-0.7); Absolute Lymphocyte Count 1.94 10^3/uL (1.2-3.4); Absolute Neutrophil Count 5.21 10^3/uL (1.2-6.7); Basophils % 0.8; Eosinophils % 4.8; HCT 35.2 % (40.0-50.0); HGB 11.8 g/dL (13.5-17.5); Immature Grans % 0.4; Lymphocytes % 22.9; MCH 30.9 pg (27.0-33.0); MCHC 33.5 % (32.0-36.0); MCV 92 fL (80-95); MPV 10.8 fL (8.0-11.0); Monocytes % 9.5; Neutrophils % 61.6; Platelet Count 296 10^3/uL (130-400); RBC 3.82 10^6/uL (4.36-5.78); RDW 12.1 % (11.8-14.1); RDW-SD 40.6 fL; WBC 8.46 10^3/uL (4.4-10.8)
[2022-06-11 15:19] LABS: ALT 27 U/L (16-63); AST 15 U/L (15-37); Albumin 3.8 g/dL (3.4-5.0); Alkaline Phosphatase 145 U/L (46-116); Anion Gap 3.5 mmol/L (3-11); BUN 18 mg/dL (7-18); Bilirubin, Total 0.5 mg/dL (0.2-1.0); CO2 35.5 mmol/L (21.0-32.0); CREATININE 2.1 mg/dL (0.70-1.30); Chloride 100 mmol/L (98-107); Estimated GFR 43.16 (mL/min/1.73m2); Glucose 120 mg/dL (74-106); Magnesium 2.2 mg/dL (1.8-2.4); Potassium 3.4 mmol/L (3.5-5.1); Sodium 139 mmol/L (136-145); Total Protein 8.4 g/dL (6.4-8.2); Troponin I < 50 ng/L (<or=60)
[2022-06-11] MEDS: Normal Saline 1,000 ML 1000 ML IV (15:46)
[2022-06-11] MEDS: Potassium Chloride 20 MEQ TABCR PO (17:20)
[2022-06-11 18:38] LABS: Anion Gap 2.7 mmol/L (3-11); BUN 18 mg/dL (7-18); CO2 34.3 mmol/L (21.0-32.0); CREATININE 1.9 mg/dL (0.70-1.30); Chloride 103 mmol/L (98-107); Estimated GFR 48.67 (mL/min/1.73m2); Glucose 95 mg/dL (74-106); Sodium 140 mmol/L (136-145)
[2022-06-11 18:40] LABS: Calcium 12.6 mg/dL (8.5-10.1)
--- NOTE | 2022-06-11 19:01 | NUR.NOTE ---
Referral faxed to [facility] to f/u in 48 hours to have lab rechecked, elevated magnesium.Nursing Note:
[2022-06-11 19:03] VITALS: BP 139/88; PULSE 74; RESP 16; TEMP 36.7; O2SAT 74
== END 2022-06-11 19:06 | disposition home or self-care (01) ==
PROVIDERS: Registered Nurse Emergency; Emergency Provider Nurse Practitioner Family; PCP Family Medicine
DX: E83.52 Hypercalcemia (principal); T50.995A Adverse effect of other drugs, medicaments and biological substances, initial encounter; N17.9 Acute kidney failure, unspecified; R07.9 Chest pain, unspecified
CPT/HCPCS: 36415; 80048; 80053; 93005; 96360; 96361; 99284; 70450; 83735; 84484; 85025; 93010

== ENCOUNTER 2022-06-12 11:57 | Emergency (ER) | payer OTHER, SELFPAY ==
--- NOTE | 2022-06-12 12:00 | RT.EKG_ITS ---
APPROVED REPORT Exam: Resting ECG Reason for Exam: chest tightness Patient Location: E HR:75 bpm ECG Measurements Heart Rate 75 AXIS UT 170 P 49 QRSd 94 QRS 58 QT 406 T 28 QTc 454 Conclusion Sinus rhythm...normal P axis, V-rate 60- 99
[2022-06-12 12:03] VITALS: BP 128/82; PULSE 88; RESP 16; TEMP 36.6; O2SAT 96
--- NOTE | 2022-06-12 13:24 | W.ED.GENAD ---
Discharge Plan Disposition Patient Disposition: Home Condition: Stable Discharge Details Clinical Impression: Hypercalcemia, Acute renal insufficiency Primary Care Provider: Brendon Vivar ED Provider: Luh Tsai Home Meds and New Rx's Prescriptions: Continued cyclobenzaprine 10 mg tablet 10 mg PO BID Qty: 180 3RF calcitriol 0.5 mcg capsule 1 mcg PO BID Qty: 360 3RF Hold Instructions: Resume on 06/15/22. trazodone 100 mg tablet 100 mg PO HS Qty: 90 3RF lorazepam [Ativan] 1 mg tablet 1 mg PO TID PRN (Reason: anxiety) Qty: 42 0RF acetaminophen 325 mg capsule 650 mg PO Q6H PRN polyethylene glycol 3350 [Miralax] 17 gram powder in packet 17 g PO DAILY naloxegol 12.5 mg tablet 12.5 mg PO QAM Qty: 60 0RF Rx Instructions: must be taken on empty stomach; no food 1 hr after or 2-3 hrs before dose methadone 10 mg/5 mL solution 110 mg PO QAM magnesium gluconate 27 mg magnesium (500 mg) Tablet 1,000 mg PO TID Qty: 90 0RF gabapentin 600 mg tablet 800 mg PO TID calcium carbonate [Tums] 200 mg calcium (500 mg) tablet,chewable 2,000 mg PO BID Qty: 0 0RF Hold Instructions: Resume on 06/15/22. No Action fluoxetine 20 mg capsule 60 mg PO DAILY Qty: 90 0RF Discharge Instructions Additional Instructions: Skip your calcitriol and Tums for the next 2 days, have your blood work rechecked on Friday, I have ordered labs for you Drink 3 L of water daily Return earlier should you have new or worsening complaints If your urinalysis has any abnormalities I will call Discharge Data Discharge Date/Time-TO BE ENTERED AT DEPARTURE: 06/12/22 14:25 Medical Decision Making This 26-year-old male with history of parathyroidectomy and hypocalcemia Reviewed calcium 12.9, recommendation for IV fluids, patient also instructed to stop taking his calcium for the next 48 hours, repeat calcium in 48 hours, loss of supply Patient is refusing IV fluids at this time, he states he needs to leave as his ride is leaving He is exhibiting no physical exams findings consistent with hypercalcemia is decreased from his prior assessment return precautions reviewed and patient expressed understanding Medical Records Medical records reviewed: Yes I reviewed the patient's medical records. Lab Data Lab results reviewed: Yes I reviewed the patient's lab results. HPI General Date/Time Provider Initiated Documentation: 06/12/22 11:58. HPI Narrative: This 26-year-old male known to this hospital for frequent visits presents with past medical history of parathyroidectomy, M EN 1, iatrogenic hypocalcemia, intrahepatic biliary duct dilatation, depression, and anxiety presents for report of needing to recheck his calcium level. He denies any current complaints aside from some mild dysuria, feels as though he cannot empty completely per patient. He denies any pain, specifically no flank pain or pain with urination. States symptoms started yesterday. He has decreased his medications secondary to hypercalcemia, specifically is not taking his calcitriol, he did take 2 Tums today, decreased from 4 per patient. Related Data Home Medications Medication Instructions Recorded Confirmed methadone 10 mg/5 mL oral solution 110 mg PO QAM 11/16/21 06/12/22 cyclobenzaprine 10 mg tablet 10 mg PO BID #180 tabs 04/19/22 06/12/22 calcitriol 0.5 mcg capsule 1 mcg PO BID #360 caps 05/13/22 06/12/22 lorazepam 1 mg tablet (Ativan) 1 mg PO TID PRN anxiety #42 tabs 05/13/22 06/12/22 trazodone 100 mg tablet 100 mg PO HS #90 tabs 05/13/22 06/12/22 magnesium gluconate 27 mg 1,000 mg PO TID #90 tabs 05/17/22 06/12/22 magnesium (500 mg) tablet gabapentin 600 mg tablet 800 mg PO TID 06/04/22 06/12/22 acetaminophen 325 mg capsule 650 mg PO Q6H PRN 06/07/22 06/12/22 naloxegol 12.5 mg tablet 12.5 mg PO QAM #60 tabs 06/07/22 06/12/22 polyethylene glycol 3350 17 gram 17 g PO DAILY 06/07/22 06/12/22 oral powder packet (Miralax) calcium carbonate 200 mg calcium 2,000 mg PO BID #0 tabs 06/11/22 06/12/22 (500 mg) chewable tablet (Tums) fluoxetine 20 mg capsule 60 mg PO DAILY #90 caps 06/12/22 06/12/22 Previous Rx's Medication Instructions Recorded cyclobenzaprine 10 mg tablet 10 mg PO BID #180 tabs 04/19/22 calcitriol 0.5 mcg capsule 1 mcg PO BID #360 caps 05/13/22 lorazepam 1 mg tablet (Ativan) 1 mg PO TID PRN anxiety #42 tabs 05/13/22 trazodone 100 mg tablet 100 mg PO HS #90 tabs 05/13/22 magnesium gluconate 27 mg 1,000 mg PO TID #90 tabs 05/17/22 magnesium (500 mg) tablet naloxegol 12.5 mg tablet 12.5 mg PO QAM #60 tabs 06/07/22 calcium carbonate 200 mg calcium 2,000 mg PO BID #0 tabs 06/11/22 (500 mg) chewable tablet (Tums) fluoxetine 20 mg capsule 60 mg PO DAILY #90 caps 06/12/22 Allergies Allergy/AdvReac Type Severity Reaction Status Date / Time codeine Allergy Intermediate Verified 06/12/22 12:06 General Stated Complaint: Recheck ADRIANA: 3 Review of Systems All systems reviewed & are unremarkable except as noted in HPI and below PFSH All Active Problems (Updated 06/14/22 @ 00:03 by HAMMAD WILEY) Hypercalcemia due to a drug (Acute) FLORESITA (acute kidney injury) (Acute) Hypercalcemia (Acute) Acute renal insufficiency (Acute) Acute left flank pain (Acute) Therapeutic opioid induced constipation (Acute) Sphincter of Oddi dysfunction (Acute) Abdominal pain (Acute) Back pain (Acute) Nausea and vomiting (Acute) Abnormal CT scan, kidney (Acute) Intrahepatic bile duct dilation (Acute) Common bile duct dilatation (Acute) Abdominal pain (Acute) Iatrogenic hypocalcemia (Acute) Multiple endocrine neoplasia type I (Chronic) Chronic constipation (Chronic) Primary hyperparathyroidism (Chronic) Depression (Chronic) Hypocalcemia (Chronic) Hypomagnesemia (Chronic) Depression (Chronic) Suicidal ideation (Acute) Elevated parathyroid hormone (Acute) Family history of coronary arteriosclerosis (Chronic) Father of [place] at 50, mother had [place] at 42 Severe anxiety with panic (Acute) Cellulitis (Acute) Medical History Anxiety Depression Family history of multiple endocrine neoplasia, type 1 Hyperlipidemia Hypocalcemia PTSD (post-traumatic stress disorder) Surgical History H/O parathyroidectomy Family History Mother Anxiety Asthma Depression Sister Anxiety Depression Father Cancer lung & stomach Depression Diabetes Hypertension MEN 1 (multiple endocrine neoplasia) Social History Smoking/Tobacco Use Status: Never Smoking risk assessment performed?: Yes Alcohol Intake: never Drug 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 Adopted: No Caregiver/Support person: No Foster care: No Household members: none Housing: house Number of Children: 0 Communication Needs: None Education Level: high school Do you need help understanding health information?: Never 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 and animals: Yes (Ally) Pets and animals: dog(s) Sexually active: No Do you think of yourself as: straight/heterosexual Current gender identity: male What is your relationship status?: How often do you talk on the phone with friends or family?: twice per week How often do you get together with friends or relatives?: never Do you belong to any clubs or organized social groups?: no Panel score (0-1 are the most socially isolated patients): 0 What type of physical activity do you participate in: walking Duration: 15-30 minutes/day Frequency: 5-6 times per week Maryam/Worship: Evangelical Special maryam needs: No Seatbelt use: always Helmet use: Yes Helmet use: always Drive 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 Exam Const General: cooperative, comfortable and no acute distress Eyes General: appearance normal, both eyes and all related structures Resp Effort & Inspection: normal respiratory effort Auscultation: clear to auscultation bilaterally Cardio Rate: regular rate Rhythm: regular rhythm GI Inspection: normal to inspection Other: No CVA tenderness, no suprapubic tenderness Skin General skin exam: no rashes or lesions noted Neuro General: patient alert and patient oriented x3 Course Vital Signs Vital signs: Vital Signs Temperature 36.6 C 06/12/22 12:03 Pulse 88 06/12/22 12:03 Respiratory Rate 16 06/12/22 12:03 Blood Pressure 128/82 06/12/22 12:03 Pulse Oximetry 96 06/12/22 12:03 Temperature 36.6 C 06/12/22 12:03 Temperature Source Temporal Artery Scan 06/12/22 12:03 Pulse 88 06/12/22 12:03 Respiratory Rate 16 06/12/22 12:03 Respiratory Effort Non-Labored 06/12/22 12:05 Blood Pressure 128/82 06/12/22 12:03 Blood Pressure Position Sitting 06/12/22 12:03 Pulse Oximetry 96 06/12/22 12:03 Oxygen Delivery Method Room Air 06/12/22 12:03 Oxygen Flow Rate 0 06/12/22 12:03 Pain Level 5 06/12/22 12:03
[2022-06-12 13:34] LABS: Anion Gap 5.3 mmol/L (3-11); BUN 17 mg/dL (7-18); CO2 33.7 mmol/L (21.0-32.0); Chloride 101 mmol/L (98-107); Estimated GFR 45.76 (mL/min/1.73m2); Glucose 105 mg/dL (74-106); Potassium 3.8 mmol/L (3.5-5.1); Sodium 140 mmol/L (136-145)
[2022-06-12 13:37] LABS: Calcium 12.9 mg/dL (8.5-10.1)
[2022-06-12 13:49] VITALS: BP 133/90; PULSE 78; RESP 16; TEMP 36.5; O2SAT 97
[2022-06-12 13:57] LABS: Bilirubin Negative (Negative); Blood Negative (Negative); Clarity Clear (Clear); Glucose Negative (Negative); Ketones Negative (Negative); Leukocyte Esterase Negative (Negative); Nitrite Negative (Negative); Urobilinogen 0.2 EU/dL (Up TO 0.2)
== END 2022-06-12 14:25 | disposition home or self-care (01) ==
PROVIDERS: Emergency Provider Physician Assistant; PCP Family Medicine
DX: N28.9 Disorder of kidney and ureter, unspecified (principal); E83.52 Hypercalcemia
CPT/HCPCS: 80048; 93005; 96360; 99284; 81003; 93010

== ENCOUNTER 2022-06-12 15:18 | Emergency (ER) | payer OTHER, SELFPAY ==
[2022-06-12 15:49] VITALS: BP 132/87; PULSE 106; RESP 18; TEMP 36.9; O2SAT 96
[2022-06-12] MEDS: Normal Saline 1,000 ML 1000 ML IV (16:52)
[2022-06-12 16:53] LABS: Abs Immature Grans 0.03 10^3/uL (0.0-0.06); Absolute Basophil Count 0.08 10^3/uL (0.0-0.2); Absolute Eosinophil Count 0.94 10^3/uL (0.0-0.7); Absolute Lymphocyte Count 1.94 10^3/uL (1.2-3.4); Absolute Neutrophil Count 5.78 10^3/uL (1.2-6.7); Basophils % 0.8; Eosinophils % 9.6; HGB 11.1 g/dL (13.5-17.5); Immature Grans % 0.3; Lymphocytes % 19.9; MCH 30.7 pg (27.0-33.0); MCHC 33.6 % (32.0-36.0); MCV 91 fL (80-95); MPV 10.7 fL (8.0-11.0); Monocytes % 10.2; Neutrophils % 59.2; Platelet Count 282 10^3/uL (130-400); RBC 3.61 10^6/uL (4.36-5.78); RDW 12.1 % (11.8-14.1); RDW-SD 40.7 fL; WBC 9.77 10^3/uL (4.4-10.8)
--- NOTE | 2022-06-12 17:00 | DI.CT_ITS ---
Exam(s) CT RENAL COLIC WO EXAM: CT RENAL COLIC WO CLINICAL HISTORY: left flank pain. TECHNIQUE: Imaging Protocol: Axial computed tomography images with coronal and sagittal reformatted images were created and reviewed CONTRAST MATERIAL: Intravenous: none Oral: None COMPARISON: CT CT ABDOMEN PELVIS W from 05/18/2022 FINDINGS: VISUALIZED LUNG BASES: No nodules nor pleural effusions evident. ABDOMEN: There is no ascites. LIVER: There are no obvious focal hepatic lesions evident of this noninfused study. GALLBLADDER/BILIARY: No obvious gallbladder pathology. CBD is not dilated. PANCREAS: No evidence of pancreatic mass nor dilatation of the pancreatic duct. SPLEEN: Spleen size upper normal. Tiny splenic granuloma noted. No concerning splenic lesions. ADRENALS: There are no significant adrenal masses. KIDNEYS:There is a punctate 1 millimeter calculus in the lower pole of the left kidney, nonobstructiv e. Both ureters exhibit normal size. No calculi at the ureterovesical junctions of nor within the u rinary bladder. No solid renal masses. No calculi nor hydronephrosis. . ABDOMINAL AORTA: Abdominal aorta is not enlarged. LYMPH NODES: There is no retroperitoneal nor paraaortic adenopathy. ABDOMINAL WALL: No evidence of significant anterior abdominal wall nor inguinal hernia. GI: There is no evidence of bowel obstruction, free air, nor abscess. PELVIS: LYMPH NODES: There is no intrapelvic nor inguinal adenopathy. GI: No evidence of appendicitis.No evidence of sigmoid diverticulitis. URINARY BLADDER: No calculi nor obvious masses evident REPRODUCTIVE: Prostate not enlarged. OSSEOUS: No significant osseous lesions. No fractures. IMPRESSION: 1. There is a solitary punctate nonobstructive calculus in lower pole the left kidney. No other sign ificant renal findings. No hydronephrosis. No calculi within the nondistended ureters nor within th e nondistended urinary bladder. RADIATION DOSE DELIVERED: 1,455.99mGy.cm Total DLP DATA REPOSITORY: All CT scans at this facility are submitted to the National Radiology Data Registry (NRDR) Dose Index Registry (DIR) with the [employer] (ACR). RADIATION OPTIMIZATION: All CT scans at this facility use at least one of these dose optimization te chniques: automated exposure control; mA and/or kV adjustment per patient size (includes targeted exa ms where dose is matched to clinical indication); or iterative reconstruction.
[2022-06-12 17:07] LABS: ALT 23 U/L (16-63); AST 14 U/L (15-37); Albumin 3.7 g/dL (3.4-5.0); Alkaline Phosphatase 128 U/L (46-116); Anion Gap 4.6 mmol/L (3-11); BUN 17 mg/dL (7-18); Bilirubin, Total 0.3 mg/dL (0.2-1.0); CO2 33.4 mmol/L (21.0-32.0); CREATININE 1.9 mg/dL (0.70-1.30); Chloride 100 mmol/L (98-107); Estimated GFR 48.67 (mL/min/1.73m2); Glucose 98 mg/dL (74-106); Magnesium 1.8 mg/dL (1.8-2.4); Potassium 3.8 mmol/L (3.5-5.1); Sodium 138 mmol/L (136-145)
[2022-06-12 17:09] LABS: Bilirubin Negative (Negative); Blood Negative (Negative); Clarity Clear (Clear); Glucose Negative (Negative); Ketones Negative (Negative); Leukocyte Esterase Negative (Negative); Nitrite Negative (Negative); Urobilinogen 0.2 EU/dL (Up TO 0.2)
[2022-06-12 17:09] LABS: Calcium 12.1 mg/dL (8.5-10.1)
--- NOTE | 2022-06-12 19:00 | DI.VRAD_ITS ---
PROCEDURE INFORMATION: Exam: CT Abdomen And Pelvis Without Contrast Exam date and time: 06/12/2022 6:22 PM Age: 26 years old Clinical indication: Other: Left flank pain TECHNIQUE: Imaging protocol: Computed tomography of the abdomen and pelvis without contrast. COMPARISON: CT ABDOMEN PELVIS W 05/18/2022 7:40 PM FINDINGS: Liver: Subtle ill-defined hypoattenuation along the falciform ligament, most consistent with focal fatty deposition. Normal liver contour. Gallbladder and bile ducts: Normal. No calcified stones. No ductal dilation. Pancreas: Normal. No ductal dilation. Spleen: Normal. No splenomegaly. Adrenal glands: Normal. No mass. Kidneys and ureters: 1 mm nonobstructing left kidney stones. 7 mm hyperdensity within the right kidney may reflect a partially calcified stone, parenchymal calcification or a complex cyst and is too small to further characterize. No hydronephrosis. No perinephric fat stranding. Stomach and bowel: Unremarkable. No obstruction. No mucosal thickening. Appendix: Normal appendix. Intraperitoneal space: Unremarkable. No free air. No significant fluid collection. Vasculature: Unremarkable. No abdominal aortic aneurysm. Lymph nodes: Unremarkable. No enlarged lymph nodes. Urinary bladder: Unremarkable as visualized. Reproductive: Unremarkable as visualized. Bones/joints: Unremarkable. No acute fracture. Soft tissues: Unremarkable. IMPRESSION: Punctate nonobstructing left kidney stones. Dictated and Authenticated by: Perez Zelaya MD. Ordering:ANDREW Maria MD
--- NOTE | 2022-06-12 19:12 | ED.GENADUL_ITS ---
Discharge Plan Disposition Patient Disposition: Home Condition: Stable Discharge Details Clinical Impression: Hypercalcemia due to a drug, FLORESITA (acute kidney injury), Acute left flank pain Primary Care Provider: Brendon Vivar ED Provider: Crow Gama Home Meds and New Rx's Prescriptions: Continued cyclobenzaprine 10 mg tablet 10 mg PO BID Qty: 180 3RF trazodone 100 mg tablet 100 mg PO HS Qty: 90 3RF lorazepam [Ativan] 1 mg tablet 1 mg PO TID PRN (Reason: anxiety) Qty: 42 0RF acetaminophen 325 mg capsule 650 mg PO Q6H PRN polyethylene glycol 3350 [Miralax] 17 gram powder in packet 17 g PO DAILY naloxegol 12.5 mg tablet 12.5 mg PO QAM Qty: 60 0RF Rx Instructions: must be taken on empty stomach; no food 1 hr after or 2-3 hrs before dose methadone 10 mg/5 mL solution 110 mg PO QAM fluoxetine 20 mg capsule 60 mg PO DAILY Qty: 90 0RF magnesium gluconate 27 mg magnesium (500 mg) Tablet 1,000 mg PO TID Qty: 90 0RF gabapentin 600 mg tablet 800 mg PO TID Held calcitriol 0.5 mcg capsule 1 mcg PO BID Qty: 360 3RF Hold Instructions: Resume on 06/15/22. calcium carbonate [Tums] 200 mg calcium (500 mg) tablet,chewable 2,000 mg PO BID Qty: 0 0RF Hold Instructions: Resume on 06/15/22. Discharge Instructions Instructions: Flank Pain (ED) Additional Instructions: It is very important that you hold your medications including Tums and calcitriol for the next 48 hours. Then you will need to follow-up with your primary care provider for reassessment of your labs. It is very important for you to stay well-hydrated and again it is preferred that you do have intake of 3 L of fluid per day over the next 48 hours as well. Referrals: Brendon Vivar DO [Primary Care Provider] - Medical Decision Making Patient returning to the emergency department now with chief complaint of left flank pain. Patient was seen by myself and also earlier today for evaluation of hypercalcemia. Patient decided to not receive IV fluids earlier today and stated he would just p.o. hydrate at home. He states approximately an hour after returning home he started having some left flank pain. He does state some slight decrease of urination but otherwise denies all other symptoms. Physical exam shows left CVA tenderness otherwise unremarkable exam. Patient is producing urine. Given patient's high calcium secondary to inappropriate medication usage I am concerned for possible calculus. Also in reviewing patient's previous records he has had acute kidney injury intermittently. We will plan on giving patient's normal saline and rechecking labs along with renal CT image. Review of patient's labs show a slight anemia but otherwise nondiagnostic CBC, CMP does show elevated carbon dioxide, creatinine of 1.9 and GFR 48 which is slightly improving from previous labs. Calcium is 12.1 which again is slightly improving although the labs are nondiagnostic. Patient's urine is clear no signs of blood. CT imaging reviewed and radiologist interpretation shows left intrarenal small calculi but no obstructing stones. We will plan on continuing plan of care for patient to hold any of his Tums or calcitriol and follow-up with primary care provider for reassessment and repeat labs. After discussion of diagnosis and plan of care patient has no further needs, questions, or concerns and states clear understanding to return to the emergency department for any worsening symptoms. This documentation was generated using [employer] dictation system, please disregard any oddities of phrase or misspellings. Imaging Data Radiologic Study: Imaging: CT Scan Radiologist's impression: Exam: CT Abdomen And Pelvis Without Contrast Exam date and time: 06/12/2022 6:22 PM Age: 26 years old Clinical indication: Other: Left flank pain TECHNIQUE: Imaging protocol: Computed tomography of the abdomen and pelvis without contrast. COMPARISON: CT ABDOMEN PELVIS W 05/18/2022 7:40 PM FINDINGS: Liver: Subtle ill-defined hypoattenuation along the falciform ligament, most consistent with focal fatty deposition. Normal liver contour. Gallbladder and bile ducts: Normal. No calcified stones. No ductal dilation. Pancreas: Normal. No ductal dilation. Spleen: Normal. No splenomegaly. Adrenal glands: Normal. No mass. Kidneys and ureters: 1 mm nonobstructing left kidney stones. 7 mm hyperdensity within the right kidney may reflect a partially calcified stone, parenchymal calcification or a complex cyst and is too small to further characterize. No hydronephrosis. No perinephric fat stranding. Stomach and bowel: Unremarkable. No obstruction. No mucosal thickening. Appendix: Normal appendix. Intraperitoneal space: Unremarkable. No free air. No significant fluid collection. Vasculature: Unremarkable. No abdominal aortic aneurysm. Lymph nodes: Unremarkable. No enlarged lymph nodes. Urinary bladder: Unremarkable as visualized. Reproductive: Unremarkable as visualized. Bones/joints: Unremarkable. No acute fracture. Soft tissues: Unremarkable. IMPRESSION: Punctate nonobstructing left kidney stones. Lab Data Lab results reviewed: Yes I reviewed the patient's lab results. HPI General Mode of arrival: ambulatory . Date/Time Provider Initiated Documentation: 06/12/22 15:19 . Limitations to Documentation: no limitations . Information obtained by: RN notes reviewed and old records reviewed . History of Present Illness 26 year old M presents to the emergency department with the chief complaint of flank pain difficulty urinating, with intensity rated at 6. Quality is described as aching, and is localized to the left (Flank). Patient reports no radiation. Patient started experiencing this hour(s) (3) and it has been constant. No relieving factors improve symptom(s), No exacerbating factors reported . Patient did receive the following treatments prior to arrival, none Related Data Home Medications Medication Instructions Recorded Confirmed methadone 10 mg/5 mL oral solution 110 mg PO QAM 11/16/21 06/12/22 cyclobenzaprine 10 mg tablet 10 mg PO BID #180 tabs 04/19/22 06/12/22 calcitriol 0.5 mcg capsule 1 mcg PO BID #360 caps 05/13/22 06/12/22 lorazepam 1 mg tablet (Ativan) 1 mg PO TID PRN anxiety #42 tabs 05/13/22 06/12/22 trazodone 100 mg tablet 100 mg PO HS #90 tabs 05/13/22 06/12/22 magnesium gluconate 27 mg 1,000 mg PO TID #90 tabs 05/17/22 06/12/22 magnesium (500 mg) tablet gabapentin 600 mg tablet 800 mg PO TID 06/04/22 06/12/22 acetaminophen 325 mg capsule 650 mg PO Q6H PRN 06/07/22 06/12/22 naloxegol 12.5 mg tablet 12.5 mg PO QAM #60 tabs 06/07/22 06/12/22 polyethylene glycol 3350 17 gram 17 g PO DAILY 06/07/22 06/12/22 oral powder packet (Miralax) calcium carbonate 200 mg calcium 2,000 mg PO BID #0 tabs 06/11/22 06/12/22 (500 mg) chewable tablet (Tums) fluoxetine 20 mg capsule 60 mg PO DAILY #90 caps 06/12/22 06/12/22 Previous Rx's Medication Instructions Recorded cyclobenzaprine 10 mg tablet 10 mg PO BID #180 tabs 04/19/22 calcitriol 0.5 mcg capsule 1 mcg PO BID #360 caps 05/13/22 lorazepam 1 mg tablet (Ativan) 1 mg PO TID PRN anxiety #42 tabs 05/13/22 trazodone 100 mg tablet 100 mg PO HS #90 tabs 05/13/22 magnesium gluconate 27 mg 1,000 mg PO TID #90 tabs 05/17/22 magnesium (500 mg) tablet naloxegol 12.5 mg tablet 12.5 mg PO QAM #60 tabs 06/07/22 calcium carbonate 200 mg calcium 2,000 mg PO BID #0 tabs 06/11/22 (500 mg) chewable tablet (Tums) fluoxetine 20 mg capsule 60 mg PO DAILY #90 caps 06/12/22 Allergies Allergy/AdvReac Type Severity Reaction Status Date / Time codeine Allergy Intermediate Verified 06/12/22 12:06 General Stated Complaint: Urinary ADRIANA: 3 Review of Systems Constitutional Constitutional: Denies chills, Denies fever(s) and Denies poor appetite Cardiovascular Cardiovascular: Denies chest pain and Denies dyspnea Respiratory Respiratory: Denies cough and Denies dyspnea Gastrointestinal Gastrointestinal: Denies as per HPI, Denies abdominal pain, Denies melena, Denies change in bowel habits, Denies constipation, Denies diarrhea, Denies nausea and Denies vomiting Genitourinary Genitourinary: Reports as per HPI, Denies hematuria, Reports oliguria, Denies difficulty urinating, Reports flank pain, Denies urinary hesitancy, Denies urinary incontinence and Denies urinary urgency Integumentary/Breasts Skin/Breast: Denies rash PFSH All Active Problems Hypercalcemia due to a drug (Acute) FLORESITA (acute kidney injury) (Acute) Hypercalcemia (Acute) Acute renal insufficiency (Acute) Acute left flank pain (Acute) Therapeutic opioid induced constipation (Acute) Sphincter of Oddi dysfunction (Acute) Abdominal pain (Acute) Back pain (Acute) Nausea and vomiting (Acute) Abnormal CT scan, kidney (Acute) Intrahepatic bile duct dilation (Acute) Common bile duct dilatation (Acute) Hypomagnesemia (Acute) Abdominal pain (Acute) Iatrogenic hypocalcemia (Acute) Multiple endocrine neoplasia type I (Chronic) Chronic constipation (Chronic) Primary hyperparathyroidism (Chronic) Depression (Chronic) Hypocalcemia (Chronic) Hypomagnesemia (Chronic) Depression (Chronic) Suicidal ideation (Acute) Elevated parathyroid hormone (Acute) Family history of coronary arteriosclerosis (Chronic) Father of [place] at 50, mother had [place] at 42 Severe anxiety with panic (Acute) Cellulitis (Acute) Medical History Anxiety Depression Family history of multiple endocrine neoplasia, type 1 Hyperlipidemia Hypocalcemia PTSD (post-traumatic stress disorder) Surgical History H/O parathyroidectomy Family History Mother Anxiety Asthma Depression Sister Anxiety Depression Father Cancer lung & stomach Depression Diabetes Hypertension MEN 1 (multiple endocrine neoplasia) Social History Smoking/Tobacco Use Status: Never Smoking risk assessment performed?: Yes Alcohol Intake: never Drug 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 Adopted: No Caregiver/Support person: No Foster care: No Household members: none Housing: house Number of Children: 0 Communication Needs: None Education Level: high school Do you need help understanding health information?: Never 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 and animals: Yes (Ally) Pets and animals: dog(s) Sexually active: No Do you think of yourself as: straight/heterosexual Current gender identity: male What is your relationship status?: How often do you talk on the phone with friends or family?: twice per week How often do you get together with friends or relatives?: never Do you belong to any clubs or organized social groups?: no Panel score (0-1 are the most socially isolated patients): 0 What type of physical activity do you participate in: walking Duration: 15-30 minutes/day Frequency: 5-6 times per week Maryam/Mandaeism: Denominational Special maryam needs: No Seatbelt use: always Helmet use: Yes Helmet use: always Drive 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 driver merchandiser: No Do you feel safe at home: Yes Do you feel safe in your relationship?: Yes Exam Const General: cooperative Orientation: alert, awake and oriented x3 Resp Effort & Inspection: normal respiratory effort and able to speak in complete sentences Auscultation: clear to auscultation bilaterally Cardio Rate: regular rate Rhythm: regular rhythm Heart Sounds: S1 normal and S2 normal GI Palpation: soft, no hepatosplenomegaly, not firm, no guarding, no masses, no pulsatile masses, not rigid, no splenomegaly and nontender Auscultation: normal bowel sounds General: CVA tenderness on the left Back/Spine/Pelvis Back: CVA tenderness Neuro General: patient alert, patient awake, patient oriented x3, gait normal and moves all extremities Course Vital Signs Vital signs: Vital Signs Temperature 36.9 C 06/12/22 15:49 Pulse 106 H 06/12/22 15:49 Respiratory Rate 18 06/12/22 15:49 Blood Pressure 132/87 06/12/22 15:49 Pulse Oximetry 96 06/12/22 15:49 Temperature 36.9 C 06/12/22 15:49 Temperature Source Tympanic 06/12/22 15:49 Pulse 106 H 06/12/22 15:49 Respiratory Rate 18 06/12/22 15:49 Respiratory Effort Non-Labored 06/12/22 17:11 Blood Pressure 132/87 06/12/22 15:49 Blood Pressure Position Supine 06/12/22 15:49 Pulse Oximetry 96 06/12/22 15:49 Oxygen Delivery Method Room Air 06/12/22 15:49 Oxygen Flow Rate 0 06/12/22 15:49 Pain Level 6 06/12/22 15:49 Lab/Test Results Lab/Test Results: Laboratory Tests Range/Units 06/12/22 06/12/22 06/12/22 16:40 16:40 17:00 WBC (4.4-10.8) 10^3/uL 9.77 RBC (4.36-5.78) 10^6/uL 3.61 L Hgb (13.5-17.5) g/dL 11.1 L Hct (40.0-50.0) % 33.0 L MCV (80-95) fL 91 MCH (27.0-33.0) pg 30.7 MCHC (32.0-36.0) % 33.6 RDW (11.8-14.1) % 12.1 Plt Count (130-400) 10^3/uL 282 MPV (8.0-11.0) fL 10.7 Immature Gran % 0.3 Neutrophils % 59.2 Lymphocytes % 19.9 Monocytes % 10.2 Eosinophils % 9.6 Basophils % 0.8 Nucleated RBC % (0.0-0.3) % 0.0 Absolute Neutrophils (1.2-6.7) 10^3/uL 5.78 Absolute Lymphocytes (1.2-3.4) 10^3/uL 1.94 Absolute Monocytes (0.1-0.8) 10^3/uL 1.00 H Absolute Eosinophils (0.0-0.7) 10^3/uL 0.94 H Absolute Basophils (0.0-0.2) 10^3/uL 0.08 Sodium (136-145) mmol/L 138 Potassium (3.5-5.1) mmol/L 3.8 Chloride (98-107) mmol/L 100 Carbon Dioxide (21.0-32.0) mmol/L 33.4 H Anion Gap (3-11) mmol/L 4.6 BUN (7-18) mg/dL 17 Creatinine (0.70-1.30) mg/dL 1.9 H Est GFR (CKD-EPI 2020) (mL/min/1.73m2) 48.67 Glucose (74-106) mg/dL 98 Calcium (8.5-10.1) mg/dL 12.1 H* Magnesium (1.8-2.4) mg/dL 1.8 Total Bilirubin (0.2-1.0) mg/dL 0.3 AST (15-37) U/L 14 L ALT (16-63) U/L 23 Alkaline Phosphatase (46-116) U/L 128 H Total Protein (6.4-8.2) g/dL 8.0 Albumin (3.4-5.0) g/dL 3.7 Urine Color (Yellow) Yellow Urine Clarity (Clear) Clear Urine pH (5-8) 6.0 Ur Specific [place] (1.005-1.025) 1.010 Urine Protein (Negative) mg/dL Negative Urine Ketones (Negative) mg/dL Negative Urine Blood (Negative) Negative Urine Nitrite (Negative) Negative Urine Bilirubin (Negative) Negative Urine Urobilinogen (Up TO 0.2) EU/dL 0.2 Ur Leukocyte Esterase (Negative) Negative Urine Glucose (Negative) mg/dL Negative
[2022-06-12 19:20] VITALS: BP 130/88; PULSE 87; RESP 18; TEMP 37.1; O2SAT 97
== END 2022-06-12 19:27 | disposition home or self-care (01) ==
PROVIDERS: Emergency Provider Nurse Practitioner Family; PCP Family Medicine
DX: N17.9 Acute kidney failure, unspecified (principal); D64.9 Anemia, unspecified; E83.52 Hypercalcemia; N20.0 Calculus of kidney; T50.905A Adverse effect of unspecified drugs, medicaments and biological substances, initial encounter
CPT/HCPCS: 80053; 96360; 99284; 74176; 81003; 83735; 85025

== ENCOUNTER 2022-06-14 12:00 | Outpatient (CLI) | payer OTHER, SELFPAY ==
[2022-06-14 09:30] LABS: Calcium 9.6 mg/dL (8.5-10.1)
== END 2022-06-14 12:01 | disposition home or self-care (01) ==
LOC: LBO 12:00
PROVIDERS: PCP Family Medicine; Visit Provider Family Medicine
DX: E83.52 Hypercalcemia (principal)
CPT/HCPCS: 36415; 82310

== ENCOUNTER 2022-06-18 22:01 | Emergency (ER) | payer OTHER, SELFPAY ==
[2022-06-18 22:13] VITALS: BP 132/86; PULSE 106; RESP 20; TEMP 37.1; O2SAT 96
--- NOTE | 2022-06-18 22:37 | ED.GENADUL_ITS ---
Discharge Plan Disposition Patient Disposition: Home Condition: Stable Discharge Details Clinical Impression: Pain, dental Primary Care Provider: Brendon Vivar ED Provider: Barrington Arciniega Home Meds and New Rx's Prescriptions: New amoxicillin 875 mg tablet 875 mg PO BID Qty: 20 0RF Continued cyclobenzaprine 10 mg tablet 10 mg PO BID Qty: 180 3RF trazodone 100 mg tablet 100 mg PO HS Qty: 90 3RF lorazepam [Ativan] 1 mg tablet 1 mg PO TID PRN (Reason: anxiety) Qty: 42 0RF acetaminophen 325 mg capsule 650 mg PO Q6H PRN polyethylene glycol 3350 [Miralax] 17 gram powder in packet 17 g PO DAILY naloxegol 12.5 mg tablet 12.5 mg PO QAM Qty: 60 0RF Rx Instructions: must be taken on empty stomach; no food 1 hr after or 2-3 hrs before dose methadone 10 mg/5 mL solution 110 mg PO QAM fluoxetine 20 mg capsule 60 mg PO DAILY Qty: 90 0RF calcium carbonate [Tums] 200 mg calcium (500 mg) tablet,chewable 1,000 mg PO BID Qty: 0 0RF Hold Instructions: Resume on 06/15/22. calcitriol 0.5 mcg capsule 0.5 mcg PO BID Qty: 360 3RF Hold Instructions: Resume on 06/15/22. magnesium gluconate 27 mg magnesium (500 mg) Tablet 1,000 mg PO TID Qty: 90 0RF gabapentin 600 mg tablet 800 mg PO TID Discharge Instructions Instructions: Toothache (ED) Additional Instructions: Amoxicillin as directed. [id number] medications as directed for symptomatic control. Salt water swish and spit as tolerated. Please watch for new or worsening symptoms and return to the ER for any concerns. Lastly, please contact your dentist tomorrow to make them aware of your ER visit and discuss a sooner appointment than already scheduled. Medical Decision Making 26-year-old gentleman reports roughly 1 month history of left lower dental pain, not scheduled to see his dentist until next month. Poor dentition throughout but no evidence of trismus, pointing abscess, etc. Airway is patent. He appears well, afebrile. Plan to initiate viscous lidocaine for analgesia as well as amoxicillin. Recommend [id number] medications for symptomatic control as well as salt water swish and spit. Recommend that he contact his dentist tomorrow to discuss his ER visit and hopeful sooner appointment. Standard discharge and return precautions were provided. Patient understands, is agreeable to this plan, and has no additional questions or concerns upon discharge. This documentation was generated using [employer] system, please disregard any oddities of phrase or misspellings. Medical Records Medical records reviewed: Yes I reviewed the patient's medical records. HPI General Mode of arrival: ambulatory . Date/Time Provider Initiated Documentation: 06/18/22 22:32 . Limitations to Documentation: no limitations . Information obtained by: patient . History of Present Illness 26 year old M presents to the emergency department with the chief complaint of Left lower dental infection, described as moderate, with intensity rated at 6. Quality is described as aching, and is localized to the mouth. Patient repor ts no radiation. Patient started experiencing this week(s) (4) and it has been constant. No relieving factors improve symptom(s), No exacerbating factors reported . Patient notes no other symptoms.. Patient did receive the following treatments prior to arrival, none Related Data Home Medications Medication Instructions Recorded Confirmed methadone 10 mg/5 mL oral solution 110 mg PO QAM 11/16/21 06/12/22 cyclobenzaprine 10 mg tablet 10 mg PO BID #180 tabs 04/19/22 06/12/22 lorazepam 1 mg tablet (Ativan) 1 mg PO TID PRN anxiety #42 tabs 05/13/22 06/12/22 trazodone 100 mg tablet 100 mg PO HS #90 tabs 05/13/22 06/12/22 magnesium gluconate 27 mg 1,000 mg PO TID #90 tabs 05/17/22 06/12/22 magnesium (500 mg) tablet gabapentin 600 mg tablet 800 mg PO TID 06/04/22 06/12/22 acetaminophen 325 mg capsule 650 mg PO Q6H PRN 06/07/22 06/12/22 naloxegol 12.5 mg tablet 12.5 mg PO QAM #60 tabs 06/07/22 06/12/22 polyethylene glycol 3350 17 gram 17 g PO DAILY 06/07/22 06/12/22 oral powder packet (Miralax) fluoxetine 20 mg capsule 60 mg PO DAILY #90 caps 06/12/22 06/12/22 calcitriol 0.5 mcg capsule 0.5 mcg PO BID #360 caps 06/14/22 calcium carbonate 200 mg calcium 1,000 mg PO BID #0 tabs 06/14/22 (500 mg) chewable tablet (Tums) amoxicillin 875 mg tablet 875 mg PO BID #20 tabs 06/18/22 Previous Rx's Medication Instructions Recorded cyclobenzaprine 10 mg tablet 10 mg PO BID #180 tabs 04/19/22 lorazepam 1 mg tablet (Ativan) 1 mg PO TID PRN anxiety #42 tabs 05/13/22 trazodone 100 mg tablet 100 mg PO HS #90 tabs 05/13/22 magnesium gluconate 27 mg 1,000 mg PO TID #90 tabs 05/17/22 magnesium (500 mg) tablet naloxegol 12.5 mg tablet 12.5 mg PO QAM #60 tabs 06/07/22 fluoxetine 20 mg capsule 60 mg PO DAILY #90 caps 06/12/22 calcitriol 0.5 mcg capsule 0.5 mcg PO BID #360 caps 06/14/22 calcium carbonate 200 mg calcium 1,000 mg PO BID #0 tabs 06/14/22 (500 mg) chewable tablet (Tums) amoxicillin 875 mg tablet 875 mg PO BID #20 tabs 06/18/22 Allergies Allergy/AdvReac Type Severity Reaction Status Date / Time codeine Allergy Intermediate Verified 06/12/22 12:06 General Stated Complaint: DentalOral ADRIANA: 4 Review of Systems Constitutional Constitutional: Denies fever(s) and Denies headache(s) ENT Ears, Nose, Mouth, and Throat: Denies headache(s), Denies neck pain and Denies sore throat Musculoskeletal Musculoskeletal: Denies neck pain Integumentary/Breasts Skin/Breast: Denies erythema Neurologic Neurologic: Denies headache(s) PFSH All Active Problems (Updated 06/18/22 @ 22:43 by ANDREW Chow) Hypercalcemia due to a drug (Acute) FLORESITA (acute kidney injury) (Acute) Hypercalcemia (Acute) Acute renal insufficiency (Acute) Acute left flank pain (Acute) Pain, dental (Acute) Therapeutic opioid induced constipation (Acute) Sphincter of Oddi dysfunction (Acute) Abdominal pain (Acute) Back pain (Acute) Nausea and vomiting (Acute) Abnormal CT scan, kidney (Acute) Intrahepatic bile duct dilation (Acute) Common bile duct dilatation (Acute) Abdominal pain (Acute) Iatrogenic hypocalcemia (Acute) Multiple endocrine neoplasia type I (Chronic) Chronic constipation (Chronic) Primary hyperparathyroidism (Chronic) Depression (Chronic) Hypocalcemia (Chronic) Hypomagnesemia (Chronic) Depression (Chronic) Suicidal ideation (Acute) Elevated parathyroid hormone (Acute) Family history of coronary arteriosclerosis (Chronic) Father of [place] at 50, mother had [place] at 42 Severe anxiety with panic (Acute) Cellulitis (Acute) Medical History Anxiety Depression Family history of multiple endocrine neoplasia, type 1 Hyperlipidemia Hypocalcemia PTSD (post-traumatic stress disorder) Surgical History H/O parathyroidectomy Family History Mother Anxiety Asthma Depression Sister Anxiety Depression Father Cancer lung & stomach Depression Diabetes Hypertension MEN 1 (multiple endocrine neoplasia) Social History Smoking/Tobacco Use Status: Never Smoking risk assessment performed?: Yes Alcohol Intake: never Drug 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 Adopted: No Caregiver/Support person: No Foster care: No Household members: none Housing: house Number of Children: 0 Communication Needs: None Education Level: high school Do you need help understanding health information?: Never 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 and animals: Yes (Ally) Pets and animals: dog(s) Sexually active: No Do you think of yourself as: straight/heterosexual Current gender identity: male What is your relationship status?: How often do you talk on the phone with friends or family?: twice per week How often do you get together with friends or relatives?: never Do you belong to any clubs or organized social groups?: no Panel score (0-1 are the most socially isolated patients): 0 What type of physical activity do you participate in: walking Duration: 15-30 minutes/day Frequency: 5-6 times per week Maryam/Rastafarian: Yazidism Special maryam needs: No Seatbelt use: always Helmet use: Yes Helmet use: always Drive 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 backhaul 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 Exam Const General: cooperative, healthy appearing, comfortable and no acute distress Orientation: alert and awake [facility] Head: normal to inspection, normocephalic and atraumatic Ears: external ears normal, TM's normal bilaterally and EAC's normal General nose exam: external nose normal Face images: 1. Tenderness, skin is intact. No erythema, warmth, induration or fluctuance. No pointing abscess. Mouth: oral mucosae normal, lip normal, tongue normal and moist mucous membranes Teeth and gingiva: poor dentition (Throughout) Teeth image: 1. Poor dentition throughout. Tooth 19 with point tenderness, the lateral aspect is decayed to the buccal mucosa. There is no pointing abscess. No trismus. Airway is patent. Eyes General: appearance normal, both eyes and all related structures Conjunctivae: conjunctivae normal Neck Neck: normal visual inspection, full ROM, no lymphadenopathy, no meningeal signs, trachea midline, supple and nontender Resp Effort & Inspection: normal respiratory effort and able to speak in complete sentences Auscultation: clear to auscultation bilaterally Cardio Rate: tachycardic (102) Rhythm: regular rhythm Skin General skin exam: no rashes or lesions noted Neuro General: patient alert, patient awake, moves all extremities and no focal motor deficits Cognition: normal cognition Speech: speech normal Gait: normal gait Sensory Exam: no sensory deficits noted Psych Appearance: grossly normal Mental Status: mental status grossly normal Course Vital Signs Vital signs: Vital Signs Temperature 37.1 C 06/18/22 22:13 Pulse 106 H 06/18/22 22:13 Respiratory Rate 20 06/18/22 22:13 Blood Pressure 132/86 06/18/22 22:13 Pulse Oximetry 96 06/18/22 22:13 Temperature 37.1 C 06/18/22 22:13 Temperature Source Oral 06/18/22 22:13 Pulse 106 H 06/18/22 22:13 Respiratory Rate 20 06/18/22 22:13 Blood Pressure 132/86 06/18/22 22:13 Blood Pressure Position Sitting 06/18/22 22:13 Pulse Oximetry 96 06/18/22 22:13 Oxygen Delivery Method Room Air 06/18/22 22:13 Oxygen Flow Rate 0 06/18/22 22:13
[2022-06-18] MEDS: Amoxicillin 875 MG TAB PO (23:00)
[2022-06-18] MEDS: Lidocaine 2% Viscous 15 ML CUP PO (23:00)
== END 2022-06-18 23:11 | disposition home or self-care (01) ==
PROVIDERS: Emergency Provider Physician Assistant; PCP Family Medicine
DX: K08.89 Other specified disorders of teeth and supporting structures (principal)
CPT/HCPCS: 99283; 99284

== ENCOUNTER 2022-06-19 14:58 | Emergency (ER) | payer OTHER, SELFPAY ==
[2022-06-19 15:23] VITALS: BP 138/91; PULSE 105; RESP 18; TEMP 37; O2SAT 96
[2022-06-19] MEDS: Bupivacaine 0.5% Pres-Free 30 ML VIAL IJ (15:40)
--- NOTE | 2022-06-19 15:42 | W.ED.GENAD ---
Discharge Plan Disposition Patient Disposition: Home Condition: Improving Discharge Details Chief Complaint: DentalOral Clinical Impression: Odontalgia Primary Care Provider: Brendon Vivar ED Provider: Mp Quiles Home Meds and New Rx's Prescriptions: No Action cyclobenzaprine 10 mg tablet 10 mg PO BID Qty: 180 3RF trazodone 100 mg tablet 100 mg PO HS Qty: 90 3RF lorazepam [Ativan] 1 mg tablet 1 mg PO TID PRN (Reason: anxiety) Qty: 42 0RF acetaminophen 325 mg capsule 650 mg PO Q6H PRN polyethylene glycol 3350 [Miralax] 17 gram powder in packet 17 g PO DAILY naloxegol 12.5 mg tablet 12.5 mg PO QAM Qty: 60 0RF Rx Instructions: must be taken on empty stomach; no food 1 hr after or 2-3 hrs before dose methadone 10 mg/5 mL solution 110 mg PO QAM fluoxetine 20 mg capsule 60 mg PO DAILY Qty: 90 0RF calcium carbonate [Tums] 200 mg calcium (500 mg) tablet,chewable 1,000 mg PO BID Qty: 0 0RF Hold Instructions: Resume on 06/15/22. calcitriol 0.5 mcg capsule 0.5 mcg PO BID Qty: 360 3RF Hold Instructions: Resume on 06/15/22. magnesium gluconate 27 mg magnesium (500 mg) Tablet 1,000 mg PO TID Qty: 90 0RF gabapentin 600 mg tablet 800 mg PO TID amoxicillin 875 mg tablet 875 mg PO BID Qty: 20 0RF Medical Decision Making 26-year-old male presents from home with persistent left lower dental pain after being seen in the ER yesterday. He started amoxicillin, has been taking [id number] analgesics. He does not have evidence of buccal or lingual aspect fluctuance. No abscess. He consented to a inferior alveolar regional anesthetic block after the risks and benefits were discussed. I will provide him with a small amount of oral analgesics for which she was can scented. He has plans to follow-up with dentistry. HPI General Mode of arrival: ambulatory. Date/Time Provider Initiated Documentation: 06/19/22 15:21. Limitations to Documentation: no limitations. Information obtained by: patient. History of Present Illness 26 year old M presents to the emergency department with the chief complaint of Left lower tooth pain persistent, described as moderate, Quality is described as dull and constant, and is localized to the mouth and left. Patient reports no radiation. Patient started experiencing this day(s) and it has been constant. No relieving factors improve symptom(s), No exacerbating factors reported . Patient notes denies fever/chills. Patient did receive the following treatments prior to arrival, none Related Data Home Medications Medication Instructions Recorded Confirmed methadone 10 mg/5 mL oral solution 110 mg PO QAM 11/16/21 06/12/22 cyclobenzaprine 10 mg tablet 10 mg PO BID #180 tabs 04/19/22 06/12/22 lorazepam 1 mg tablet (Ativan) 1 mg PO TID PRN anxiety #42 tabs 05/13/22 06/12/22 trazodone 100 mg tablet 100 mg PO HS #90 tabs 05/13/22 06/12/22 magnesium gluconate 27 mg 1,000 mg PO TID #90 tabs 05/17/22 06/12/22 magnesium (500 mg) tablet gabapentin 600 mg tablet 800 mg PO TID 06/04/22 06/12/22 acetaminophen 325 mg capsule 650 mg PO Q6H PRN 06/07/22 06/12/22 naloxegol 12.5 mg tablet 12.5 mg PO QAM #60 tabs 06/07/22 06/12/22 polyethylene glycol 3350 17 gram 17 g PO DAILY 06/07/22 06/12/22 oral powder packet (Miralax) fluoxetine 20 mg capsule 60 mg PO DAILY #90 caps 06/12/22 06/12/22 calcitriol 0.5 mcg capsule 0.5 mcg PO BID #360 caps 06/14/22 calcium carbonate 200 mg calcium 1,000 mg PO BID #0 tabs 06/14/22 (500 mg) chewable tablet (Tums) amoxicillin 875 mg tablet 875 mg PO BID #20 tabs 06/18/22 Previous Rx's Medication Instructions Recorded cyclobenzaprine 10 mg tablet 10 mg PO BID #180 tabs 04/19/22 lorazepam 1 mg tablet (Ativan) 1 mg PO TID PRN anxiety #42 tabs 05/13/22 trazodone 100 mg tablet 100 mg PO HS #90 tabs 05/13/22 magnesium gluconate 27 mg 1,000 mg PO TID #90 tabs 05/17/22 magnesium (500 mg) tablet naloxegol 12.5 mg tablet 12.5 mg PO QAM #60 tabs 06/07/22 fluoxetine 20 mg capsule 60 mg PO DAILY #90 caps 06/12/22 calcitriol 0.5 mcg capsule 0.5 mcg PO BID #360 caps 06/14/22 calcium carbonate 200 mg calcium 1,000 mg PO BID #0 tabs 06/14/22 (500 mg) chewable tablet (Tums) amoxicillin 875 mg tablet 875 mg PO BID #20 tabs 06/18/22 Allergies Allergy/AdvReac Type Severity Reaction Status Date / Time codeine Allergy Intermediate Verified 06/12/22 12:06 General Stated Complaint: DentalOral ADRIANA: 5 Review of Systems Narrative: No drooling, no trismus, no change to voice, swallowing. 8 systems were reviewed and otherwise negative. PFSH All Active Problems (Updated 06/19/22 @ 15:47 by Mp Quiles MD) Hypercalcemia due to a drug (Acute) FLORESITA (acute kidney injury) (Acute) Hypercalcemia (Acute) Acute renal insufficiency (Acute) Acute left flank pain (Acute) Pain, dental (Acute) Odontalgia (Acute) Therapeutic opioid induced constipation (Acute) Sphincter of Oddi dysfunction (Acute) Abnormal CT scan, kidney (Acute) Intrahepatic bile duct dilation (Acute) Common bile duct dilatation (Acute) Abdominal pain (Acute) Iatrogenic hypocalcemia (Acute) Multiple endocrine neoplasia type I (Chronic) Chronic constipation (Chronic) Primary hyperparathyroidism (Chronic) Depression (Chronic) Hypocalcemia (Chronic) Hypomagnesemia (Chronic) Depression (Chronic) Suicidal ideation (Acute) Elevated parathyroid hormone (Acute) Family history of coronary arteriosclerosis (Chronic) Father of [place] at 50, mother had [place] at 42 Severe anxiety with panic (Acute) Cellulitis (Acute) Medical History Anxiety Depression Family history of multiple endocrine neoplasia, type 1 Hyperlipidemia Hypocalcemia PTSD (post-traumatic stress disorder) Surgical History H/O parathyroidectomy Family History Mother Anxiety Asthma Depression Sister Anxiety Depression Father Cancer lung & stomach Depression Diabetes Hypertension MEN 1 (multiple endocrine neoplasia) Social History Smoking/Tobacco Use Status: Never Smoking risk assessment performed?: Yes Alcohol Intake: never Drug 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 Adopted: No Caregiver/Support person: No Foster care: No Household members: none Housing: house Number of Children: 0 Communication Needs: None Education Level: high school Do you need help understanding health information?: Never 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 and animals: Yes (Ally) Pets and animals: dog(s) Sexually active: No Do you think of yourself as: straight/heterosexual Current gender identity: male What is your relationship status?: How often do you talk on the phone with friends or family?: twice per week How often do you get together with friends or relatives?: never Do you belong to any clubs or organized social groups?: no Panel score (0-1 are the most socially isolated patients): 0 What type of physical activity do you participate in: walking Duration: 15-30 minutes/day Frequency: 5-6 times per week Maryam/Protestant: Evangelical Special maryam needs: No Seatbelt use: always Helmet use: Yes Helmet use: always 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 Pleasant, well groomed, interactive. HEAD: Normocephalic, atraumatic ENT: Mucous membranes moist, oropharynx with generally poor dentition, numerous dental caries. Pain at left lower first visible molar, no buccal or lingual fluctuance. Dental caries present on the anterior buccal aspect, tympanic membranes unremarkable, External ear exam unremarkable EYES: PERRL, EOMI NECK: Full ROM, no DENY, no menigismus CHEST/RESP: No respiratory distress Neuro: Grossly normal neurologic exam, conversant, interactive. Psych: Speech fluent, thoughts congruent, affect normal Course Vital Signs Vital signs: Vital Signs Temperature 37.0 C 06/19/22 15:23 Pulse 105 H 06/19/22 15:23 Respiratory Rate 18 06/19/22 15:23 Blood Pressure 138/91 H 06/19/22 15:23 Pulse Oximetry 96 06/19/22 15:23 Temperature 37.0 C 06/19/22 15:23 Temperature Source Skin 06/19/22 15:23 Pulse 105 H 06/19/22 15:23 Respiratory Rate 18 06/19/22 15:23 Respiratory Effort 06/19/22 15:28 Blood Pressure 138/91 H 06/19/22 15:23 Blood Pressure Position Sitting 06/19/22 15:23 Pulse Oximetry 96 06/19/22 15:23 Oxygen Delivery Method Room Air 06/19/22 15:23 Oxygen Flow Rate 0 06/19/22 15:23 Pain Level 7 06/19/22 15:23 Procedures Other Description: Left inferior alveolar dental block performed without difficulty
== END 2022-06-19 16:02 | disposition home or self-care (01) ==
PROVIDERS: Emergency Provider Emergency Medicine; PCP Family Medicine
DX: K08.89 Other specified disorders of teeth and supporting structures (principal)
CPT/HCPCS: 64400

== ENCOUNTER 2022-06-20 12:35 | Emergency (ER) | payer OTHER, SELFPAY ==
[2022-06-20 12:51] VITALS: BP 139/94; PULSE 97; RESP 18; TEMP 36.9; O2SAT 96
--- NOTE | 2022-06-20 14:31 | W.ED.GENAD ---
Discharge Plan Disposition Patient Disposition: Home Condition: Stable Discharge Details Clinical Impression: Pain, dental, Medication reaction Primary Care Provider: Brendon Vivar ED Provider: Luh Tsai Home Meds and New Rx's Prescriptions: New clindamycin HCl 150 mg capsule 450 mg PO TID Qty: 90 0RF Continued cyclobenzaprine 10 mg tablet 10 mg PO BID Qty: 180 3RF trazodone 100 mg tablet 100 mg PO HS Qty: 90 3RF lorazepam [Ativan] 1 mg tablet 1 mg PO TID PRN (Reason: anxiety) Qty: 42 0RF acetaminophen 325 mg capsule 650 mg PO Q6H PRN polyethylene glycol 3350 [Miralax] 17 gram powder in packet 17 g PO DAILY naloxegol 12.5 mg tablet 12.5 mg PO QAM Qty: 60 0RF Rx Instructions: must be taken on empty stomach; no food 1 hr after or 2-3 hrs before dose methadone 10 mg/5 mL solution 110 mg PO QAM fluoxetine 20 mg capsule 60 mg PO DAILY Qty: 90 0RF calcium carbonate [Tums] 200 mg calcium (500 mg) tablet,chewable 1,000 mg PO BID Qty: 0 0RF Hold Instructions: Resume on 06/15/22. calcitriol 0.5 mcg capsule 0.5 mcg PO BID Qty: 360 3RF Hold Instructions: Resume on 06/15/22. gabapentin 600 mg tablet 800 mg PO TID ketorolac 10 mg tablet 10 mg PO TID PRN7 Days Qty: 20 0RF Rx Instructions: No additional ibuprofen/Motrin/Advil No Action magnesium gluconate 27 mg magnesium (500 mg) tablet 1,000 mg PO TID Qty: 90 3RF Discharge Instructions Instructions: Toothache (ED) Additional Instructions: You are likely having allergic reaction to amoxicillin, discontinue the amoxicillin you may take Benadryl as needed Take the clindamycin as prescribed Take Tylenol as needed for discomfort Follow-up with your dentist at your scheduled appointment and return earlier should you have new or worsening complaints Referrals: Brendon Vivar DO [Primary Care Provider] - Discharge Data Discharge Date/Time-TO BE ENTERED AT DEPARTURE: 06/20/22 14:41 Medical Decision Making This 26-year-old male known to this facility with multiple comorbidities presents with report of possible adverse effect versus allergic reaction to taking amoxicillin was prescribed for dental infection Take the first dose today and shortly thereafter felt short of breath and nauseous Patient without any clinical evidence of anaphylaxis Given antiemetics and switched to clindamycin Will follow-up with primary care physician Discharged home in stable condition with stable vitals Return precautions reviewed and patient states understanding No evidence of Yolanda's angina, no evidence of anaphylaxis Medical Records Medical records reviewed: Yes I reviewed the patient's medical records. Lab Data Lab results reviewed: Yes I reviewed the patient's lab results. HPI General Date/Time Provider Initiated Documentation: 06/20/22 14:25. HPI Narrative: This 26-year-old gentleman with multiple comorbidities presents with reports of nausea and anxiety after taking his first dose of amoxicillin for dental pain. He states that he is still mildly nauseous but overall feeling improved. He denies any chest pain or current shortness of breath. Denies any difficulty swallowing. Denies fever or chills. Related Data Home Medications Medication Instructions Recorded Confirmed methadone 10 mg/5 mL oral solution 110 mg PO QAM 11/16/21 06/12/22 cyclobenzaprine 10 mg tablet 10 mg PO BID #180 tabs 04/19/22 06/12/22 lorazepam 1 mg tablet (Ativan) 1 mg PO TID PRN anxiety #42 tabs 05/13/22 06/12/22 trazodone 100 mg tablet 100 mg PO HS #90 tabs 05/13/22 06/12/22 gabapentin 600 mg tablet 800 mg PO TID 06/04/22 06/12/22 acetaminophen 325 mg capsule 650 mg PO Q6H PRN 06/07/22 06/12/22 naloxegol 12.5 mg tablet 12.5 mg PO QAM #60 tabs 06/07/22 06/12/22 polyethylene glycol 3350 17 gram 17 g PO DAILY 06/07/22 06/12/22 oral powder packet (Miralax) fluoxetine 20 mg capsule 60 mg PO DAILY #90 caps 06/12/22 06/12/22 calcitriol 0.5 mcg capsule 0.5 mcg PO BID #360 caps 06/14/22 calcium carbonate 200 mg calcium 1,000 mg PO BID #0 tabs 06/14/22 (500 mg) chewable tablet (Tums) ketorolac 10 mg tablet 10 mg PO TID PRN 7 days #20 tabs 06/19/22 clindamycin HCl 150 mg capsule 450 mg PO TID #90 caps 06/20/22 magnesium gluconate 27 mg 1,000 mg PO TID #90 tabs 06/21/22 06/21/22 magnesium (500 mg) tablet Previous Rx's Medication Instructions Recorded cyclobenzaprine 10 mg tablet 10 mg PO BID #180 tabs 04/19/22 lorazepam 1 mg tablet (Ativan) 1 mg PO TID PRN anxiety #42 tabs 05/13/22 trazodone 100 mg tablet 100 mg PO HS #90 tabs 05/13/22 naloxegol 12.5 mg tablet 12.5 mg PO QAM #60 tabs 06/07/22 fluoxetine 20 mg capsule 60 mg PO DAILY #90 caps 06/12/22 calcitriol 0.5 mcg capsule 0.5 mcg PO BID #360 caps 06/14/22 calcium carbonate 200 mg calcium 1,000 mg PO BID #0 tabs 06/14/22 (500 mg) chewable tablet (Tums) ketorolac 10 mg tablet 10 mg PO TID PRN 7 days #20 tabs 06/19/22 clindamycin HCl 150 mg capsule 450 mg PO TID #90 caps 06/20/22 magnesium gluconate 27 mg 1,000 mg PO TID #90 tabs 06/21/22 magnesium (500 mg) tablet Allergies Allergy/AdvReac Type Severity Reaction Status Date / Time amoxicillin Allergy Intermediate Nausea Verified 06/21/22 09:24 codeine Allergy Intermediate Verified 06/21/22 09:24 General Stated Complaint: GenMedical ADRIANA: 4 Review of Systems All systems reviewed & are unremarkable except as noted in HPI and below PFSH All Active Problems (Updated 06/20/22 @ 14:37 by ANDREW Arriaga) Hypercalcemia due to a drug (Acute) FLORESITA (acute kidney injury) (Acute) Hypercalcemia (Acute) Acute renal insufficiency (Acute) Acute left flank pain (Acute) Pain, dental (Acute) Odontalgia (Acute) Pain, dental (Acute) Medication reaction (Acute) Therapeutic opioid induced constipation (Acute) Sphincter of Oddi dysfunction (Acute) Abnormal CT scan, kidney (Acute) Intrahepatic bile duct dilation (Acute) Common bile duct dilatation (Acute) Abdominal pain (Acute) Iatrogenic hypocalcemia (Acute) Multiple endocrine neoplasia type I (Chronic) Chronic constipation (Chronic) Primary hyperparathyroidism (Chronic) Depression (Chronic) Hypocalcemia (Chronic) Hypomagnesemia (Chronic) Depression (Chronic) Suicidal ideation (Acute) Elevated parathyroid hormone (Acute) Family history of coronary arteriosclerosis (Chronic) Father of [place] at 50, mother had [place] at 42 Severe anxiety with panic (Acute) Cellulitis (Acute) Medical History Anxiety Depression Family history of multiple endocrine neoplasia, type 1 Hyperlipidemia Hypocalcemia PTSD (post-traumatic stress disorder) Surgical History H/O parathyroidectomy Family History Mother Anxiety Asthma Depression Sister Anxiety Depression Father Cancer lung & stomach Depression Diabetes Hypertension MEN 1 (multiple endocrine neoplasia) Social History Smoking/Tobacco Use Status: Never Smoking risk assessment performed?: Yes Alcohol Intake: never Drug 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 Adopted: No Caregiver/Support person: No Foster care: No Household members: none Housing: house Number of Children: 0 Communication Needs: None Education Level: high school Do you need help understanding health information?: Never 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 and animals: Yes (Ally) Pets and animals: dog(s) Sexually active: No Do you think of yourself as: straight/heterosexual Current gender identity: male What is your relationship status?: How often do you talk on the phone with friends or family?: twice per week How often do you get together with friends or relatives?: never Do you belong to any clubs or organized social groups?: no Panel score (0-1 are the most socially isolated patients): 0 What type of physical activity do you participate in: walking Duration: 15-30 minutes/day Frequency: 5-6 times per week Maryam/Hoahaoism: Religious Special maryam needs: No Seatbelt use: always Helmet use: Yes Helmet use: always 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 Do you feel safe at home: Yes Do you feel safe in your relationship?: Yes Exam Const General: cooperative, comfortable and no acute distress Orientation: alert and oriented x3 HENMT Other: No visible swelling to jawline, uvula midline, oropharynx patent, no stridor, no tongue or lip swelling appreciated Resp Effort & Inspection: normal respiratory effort Auscultation: clear to auscultation bilaterally Cardio Rate: regular rate GI Inspection: normal to inspection Neuro General: patient alert and patient oriented x3 Course Vital Signs Vital signs: Vital Signs Temperature 36.9 C 06/20/22 12:51 Pulse 97 H 06/20/22 12:51 Respiratory Rate 18 06/20/22 12:51 Blood Pressure 139/94 H 06/20/22 12:51 Pulse Oximetry 96 06/20/22 12:51 Temperature 36.9 C 06/20/22 12:51 Temperature Source Oral 06/20/22 12:51 Pulse 97 H 06/20/22 12:51 Respiratory Rate 18 06/20/22 12:51 Respiratory Effort Non-Labored 06/20/22 14:28 Blood Pressure 139/94 H 06/20/22 12:51 Blood Pressure Position Sitting 06/20/22 12:51 Pulse Oximetry 96 06/20/22 12:51 Oxygen Delivery Method Room Air 06/20/22 12:51 Oxygen Flow Rate 0 06/20/22 12:51 Pain Level 0 06/20/22 12:51
[2022-06-20] MEDS: Acetaminophen 325 MG TAB 650 MG PO (14:37)
== END 2022-06-20 14:41 | disposition home or self-care (01) ==
PROVIDERS: Emergency Provider Physician Assistant; PCP Family Medicine
DX: K08.89 Other specified disorders of teeth and supporting structures (principal); R11.0 Nausea; R06.02 Shortness of breath; T36.0X5A Adverse effect of penicillins, initial encounter
CPT/HCPCS: 99283; 99284

== ENCOUNTER 2022-06-20 14:58 | Outpatient (CLI) | payer OTHER, SELFPAY ==
[2022-06-20 15:39] LABS: Calcium 9.7 mg/dL (8.5-10.1)
== END 2022-06-20 14:59 | disposition home or self-care (01) ==
PROVIDERS: PCP Family Medicine; Visit Provider Family Medicine
DX: E83.52 Hypercalcemia (principal); T50.905A Adverse effect of unspecified drugs, medicaments and biological substances, initial encounter
CPT/HCPCS: 36415; 82310

== ENCOUNTER 2022-06-22 11:42 | Emergency (ER) | payer OTHER, SELFPAY ==
[2022-06-22 11:44] VITALS: BP 135/83; PULSE 91; RESP 20; TEMP 36.7; O2SAT 94
--- NOTE | 2022-06-22 11:45 | DI.RAD_ITS ---
Exam(s) XR CHEST 2V PA LATERAL EXAM: XR CHEST 2V PA LATERAL CLINICAL HISTORY: left sided chest pain TECHNIQUE: 2D digital imaging was performed. COMPARISON: CR,XR XR CHEST 2V PA LATERAL from 05/19/2022 FINDINGS: HEART: Normal size. Aorta: Not dilated. PULMONARY VASCULATURE: Normal. LUNGS: Clear. PLEURAL SPACE: No pleural effusion or pneumothorax. BONE:Unremarkable for age. IMPRESSION: No acute abnormality. DATA REPOSITORY: RADIATION DOSE DELIVERED:
--- NOTE | 2022-06-22 11:56 | ED.GENADUL_ITS ---
Discharge Plan Disposition Patient Disposition: Home Condition: Stable Discharge Details Clinical Impression: Pain, dental, Chest pain Primary Care Provider: Brendon Vivar ED Provider: Ricardo Crabtree Home Meds and New Rx's Prescriptions: Continued cyclobenzaprine 10 mg tablet 10 mg PO BID Qty: 180 3RF trazodone 100 mg tablet 100 mg PO HS Qty: 90 3RF lorazepam [Ativan] 1 mg tablet 1 mg PO TID PRN (Reason: anxiety) Qty: 42 0RF acetaminophen 325 mg capsule 650 mg PO Q6H PRN polyethylene glycol 3350 [Miralax] 17 gram powder in packet 17 g PO DAILY naloxegol 12.5 mg tablet 12.5 mg PO QAM Qty: 60 0RF Rx Instructions: must be taken on empty stomach; no food 1 hr after or 2-3 hrs before dose magnesium gluconate 27 mg magnesium (500 mg) tablet 1,000 mg PO TID Qty: 90 3RF methadone 10 mg/5 mL solution 110 mg PO QAM fluoxetine 20 mg capsule 60 mg PO DAILY Qty: 90 0RF calcium carbonate [Tums] 200 mg calcium (500 mg) tablet,chewable 1,000 mg PO BID Qty: 0 0RF Hold Instructions: Resume on 06/15/22. calcitriol 0.5 mcg capsule 0.5 mcg PO BID Qty: 360 3RF Hold Instructions: Resume on 06/15/22. gabapentin 600 mg tablet 800 mg PO TID ketorolac 10 mg tablet 10 mg PO TID PRN7 Days Qty: 20 0RF Rx Instructions: No additional ibuprofen/Motrin/Advil clindamycin HCl 150 mg capsule 450 mg PO TID Qty: 90 0RF Discharge Instructions Additional Instructions: your blood work and xray did not show concerning findings follow up with your primary care provider and dentist as soon as possible if you feel more ill, have persistent vomiting or difficulty breathing return to the emergency department Medical Decision Making 26 yo male with hx of MENI who comes in with cc of nausea and diarrhea today and continued left lower dental pain. Has been seen for the left lower molar pain in the ED and started on amoxicillin and then switched to clindamycin as he reported feeling short of breath after taking amoxicillin though the prescriber who switched him did not note any other signs of an allergic reaction. He has been taking the clindamycin and today woke up feeling nausea with diarrhea. Denies fevers, chills, abdominal pain. He denies rashes or dyspnea. HE also has noted a pain in his left chest in the breast area and is tender when he touches the area. HE arrives stable speaking clearly caox4. He has a severely eroded left posterior molar where he has the pain, has no periapical abscess, normal posterior pharynx, no submandibular swelling. Suspect the pain is due to the tooth erosion and no findings to suggest ludwigs. No signs of an allergic reaction, has no abdominal tenderness to suggest pathology such sbo or cholecystitis or other surgical pathology. He has pain just superior to the left areola and is tender on palpation here, no palpable or visible deformities, no nipple drainage, no erythema or warmth. Unclear etiology for his constellation of symptoms, will obtain cbc, cmp, troponin, ekg and portable chest xray to further evaluate. HE is wells low and perc negative so doubt PE and no tearing back pain to suggest dissection imaging and labs unremarkable, provided a stool sample but was fully formed not diarrhea so could not test for c diff. He remainst able and appears well tolerating po, topical benzocaine helped his dental pain. He is stable for d/c, will f/u with his pcp and dentist, return precautions given Differential Diagnosis Differential Diagnosis: pulpitis, caries, medication reaction, colitis Medical Records Medical records reviewed: Yes I reviewed the patient's medical records. Imaging Data Radiologic Study: Attestation: I personally reviewed and interpreted this imaging study as follows: Imaging: X-Ray Radiologist's impression: no acute findings Lab Data Lab results reviewed: Yes I reviewed the patient's lab results. ECG Data Attestation: I personally reviewed and interpreted this ECG (s) as follows: Prior ECG tracings: available for review Interpretation: sinus rhythm, rate of 88, pr 166, no acute st t wave ischemic findings HPI General Mode of arrival: ambulatory . Date/Time Provider Initiated Documentation: 06/22/22 11:46 . Limitations to Documentation: no limitations . Information obtained by: patient . History of Present Illness 26 year old M presents to the emergency department with the chief complaint of diarrhea, described as moderate, Patient started experiencing this day(s) (1) No relieving factors improve symptom(s), No exacerbating factors reported . Patient notes other (nausea). Related Data Home Medications Medication Instructions Recorded Confirmed methadone 10 mg/5 mL oral solution 110 mg PO QAM 11/16/21 06/22/22 cyclobenzaprine 10 mg tablet 10 mg PO BID #180 tabs 04/19/22 06/22/22 lorazepam 1 mg tablet (Ativan) 1 mg PO TID PRN anxiety #42 tabs 05/13/22 06/22/22 trazodone 100 mg tablet 100 mg PO HS #90 tabs 05/13/22 06/22/22 gabapentin 600 mg tablet 800 mg PO TID 06/04/22 06/22/22 acetaminophen 325 mg capsule 650 mg PO Q6H PRN 06/07/22 06/22/22 naloxegol 12.5 mg tablet 12.5 mg PO QAM #60 tabs 06/07/22 06/22/22 polyethylene glycol 3350 17 gram 17 g PO DAILY 06/07/22 06/22/22 oral powder packet (Miralax) fluoxetine 20 mg capsule 60 mg PO DAILY #90 caps 06/12/22 06/22/22 calcitriol 0.5 mcg capsule 0.5 mcg PO BID #360 caps 06/14/22 06/22/22 calcium carbonate 200 mg calcium 1,000 mg PO BID #0 tabs 06/14/22 06/22/22 (500 mg) chewable tablet (Tums) ketorolac 10 mg tablet 10 mg PO TID PRN 7 days #20 tabs 06/19/22 06/22/22 clindamycin HCl 150 mg capsule 450 mg PO TID #90 caps 06/20/22 06/22/22 magnesium gluconate 27 mg 1,000 mg PO TID #90 tabs 06/21/22 06/22/22 magnesium (500 mg) tablet Previous Rx's Medication Instructions Recorded cyclobenzaprine 10 mg tablet 10 mg PO BID #180 tabs 04/19/22 lorazepam 1 mg tablet (Ativan) 1 mg PO TID PRN anxiety #42 tabs 05/13/22 trazodone 100 mg tablet 100 mg PO HS #90 tabs 05/13/22 naloxegol 12.5 mg tablet 12.5 mg PO QAM #60 tabs 06/07/22 fluoxetine 20 mg capsule 60 mg PO DAILY #90 caps 06/12/22 calcitriol 0.5 mcg capsule 0.5 mcg PO BID #360 caps 06/14/22 calcium carbonate 200 mg calcium 1,000 mg PO BID #0 tabs 06/14/22 (500 mg) chewable tablet (Tums) ketorolac 10 mg tablet 10 mg PO TID PRN 7 days #20 tabs 06/19/22 clindamycin HCl 150 mg capsule 450 mg PO TID #90 caps 06/20/22 magnesium gluconate 27 mg 1,000 mg PO TID #90 tabs 06/21/22 magnesium (500 mg) tablet Allergies Allergy/AdvReac Type Severity Reaction Status Date / Time amoxicillin Allergy Intermediate Nausea Verified 06/22/22 11:47 codeine Allergy Intermediate Verified 06/22/22 11:47 General Stated Complaint: Abd Prob ADRIANA: 3 Review of Systems All systems reviewed & are unremarkable except as noted in HPI and below Constitutional Constitutional: Denies chills, Denies fever(s) and Denies weakness Cardiovascular Cardiovascular: Denies dyspnea Respiratory Respiratory: Denies cough and Denies dyspnea Gastrointestinal Gastrointestinal: Denies abdominal pain Integumentary/Breasts Skin/Breast: Denies rash Neurologic Neurologic: Denies weakness PFSH All Active Problems (Updated 06/22/22 @ 13:33 by Ricardo Crabtree MD) Pain, dental (Acute) Chest pain (Acute) Hypercalcemia due to a drug (Acute) FLORESITA (acute kidney injury) (Acute) Hypercalcemia (Acute) Acute renal insufficiency (Acute) Acute left flank pain (Acute) Pain, dental (Acute) Odontalgia (Acute) Pain, dental (Acute) Medication reaction (Acute) Therapeutic opioid induced constipation (Acute) Sphincter of Oddi dysfunction (Acute) Abnormal CT scan, kidney (Acute) Intrahepatic bile duct dilation (Acute) Common bile duct dilatation (Acute) Abdominal pain (Acute) Iatrogenic hypocalcemia (Acute) Multiple endocrine neoplasia type I (Chronic) Chronic constipation (Chronic) Primary hyperparathyroidism (Chronic) Depression (Chronic) Hypocalcemia (Chronic) Hypomagnesemia (Chronic) Depression (Chronic) Suicidal ideation (Acute) Elevated parathyroid hormone (Acute) Family history of coronary arteriosclerosis (Chronic) Father of OH at 50, mother had OH at 42 Severe anxiety with panic (Acute) Cellulitis (Acute) Medical History Anxiety Depression Family history of multiple endocrine neoplasia, type 1 Hyperlipidemia Hypocalcemia PTSD (post-traumatic stress disorder) Surgical History H/O parathyroidectomy Family History Mother Anxiety Asthma Depression Sister Anxiety Depression Father Cancer lung & stomach Depression Diabetes Hypertension MEN 1 (multiple endocrine neoplasia) Social History Smoking/Tobacco Use Status: Never Smoking risk assessment performed?: Yes Alcohol Intake: never Drug 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 Adopted: No Caregiver/Support person: No Foster care: No Household members: none Housing: house Number of Children: 0 Communication Needs: None Education Level: high school Do you need help understanding health information?: Never 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 and animals: Yes (Ally) Pets and animals: dog(s) Sexually active: No Do you think of yourself as: straight/heterosexual Current gender identity: male What is your relationship status?: How often do you talk on the phone with friends or family?: twice per week How often do you get together with friends or relatives?: never Do you belong to any clubs or organized social groups?: no Panel score (0-1 are the most socially isolated patients): 0 What type of physical activity do you participate in: walking Duration: 15-30 minutes/day Frequency: 5-6 times per week Maryam/Caodaism: Lutheran Special maryam needs: No Seatbelt use: always Helmet use: Yes Helmet use: always 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 Exam Const General: no acute distress Orientation: alert HENMT Head: normal to inspection Ears: external ears normal General nose exam: external nose normal Mouth: moist mucous membranes Eyes General: appearance normal, both eyes and all related structures Neck Neck: normal visual inspection Chest Chest: normal inspection of the chest and tenderness Resp Effort & Inspection: normal respiratory effort and able to speak in complete sentences Cardio Rate: regular rate GI Palpation: soft and nontender Skin General skin exam: no rashes or lesions noted Neuro General: patient alert and patient oriented x3 Extrem General: normal to inspection Psych Mental Status: mental status grossly normal Course Vital Signs Vital signs: Vital Signs Temperature 36.7 C 06/22/22 11:44 Pulse 91 H 06/22/22 11:44 Respiratory Rate 20 06/22/22 11:44 Blood Pressure 135/83 06/22/22 11:44 Pulse Oximetry 94 06/22/22 11:44 Temperature 36.7 C 06/22/22 11:44 Temperature Source Skin 06/22/22 11:44 Pulse 91 H 06/22/22 11:44 Respiratory Rate 20 06/22/22 11:44 Respiratory Effort Non-Labored 06/22/22 11:48 Blood Pressure 135/83 06/22/22 11:44 Blood Pressure Position Sitting 06/22/22 11:44 Pulse Oximetry 94 06/22/22 11:44 Oxygen Delivery Method Room Air 06/22/22 11:44 Oxygen Flow Rate 0 06/22/22 11:44 Pain Level 5 06/22/22 11:44
--- NOTE | 2022-06-22 12:00 | RT.EKG_ITS ---
APPROVED REPORT Exam: Resting ECG Reason for Exam: chest pain Patient Location: E HR:88 bpm ECG Measurements Heart Rate 88 AXIS MT 166 P 68 QRSd 98 QRS 59 QT 388 T 19 QTc 471 Conclusion Sinus rhythm...normal P axis, V-rate 60- 99
[2022-06-22 12:05] LABS: Abs Immature Grans 0.02 10^3/uL (0.0-0.06); Absolute Basophil Count 0.06 10^3/uL (0.0-0.2); Absolute Eosinophil Count 0.36 10^3/uL (0.0-0.7); Absolute Lymphocyte Count 1.66 10^3/uL (1.2-3.4); Absolute Monocyte Count 0.78 10^3/uL (0.1-0.8); Absolute Neutrophil Count 4.66 10^3/uL (1.2-6.7); Basophils % 0.8; Eosinophils % 4.8; HCT 35.7 % (40.0-50.0); Immature Grans % 0.3; MCH 30.8 pg (27.0-33.0); MCHC 33.6 % (32.0-36.0); MCV 92 fL (80-95); MPV 10.4 fL (8.0-11.0); Monocytes % 10.3; Neutrophils % 61.8; Platelet Count 362 10^3/uL (130-400); RBC 3.89 10^6/uL (4.36-5.78); RDW-SD 40.1 fL; WBC 7.54 10^3/uL (4.4-10.8)
[2022-06-22] MEDS: Benzocaine 20% Gel 30 GM JAR MM (12:05)
[2022-06-22] MEDS: Normal Saline 1,000 ML 1000 ML IV (12:06)
[2022-06-22] MEDS: Prochlorperazine 10 MG/2 ML VIAL IVP (12:06)
[2022-06-22 12:22] LABS: ALT 23 U/L (16-63); AST 24 U/L (15-37); Albumin 3.8 g/dL (3.4-5.0); Alkaline Phosphatase 107 U/L (46-116); Anion Gap 3.2 mmol/L (3-11); BUN 17 mg/dL (7-18); Bilirubin, Total 0.4 mg/dL (0.2-1.0); CO2 32.8 mmol/L (21.0-32.0); CREATININE 1.6 mg/dL (0.70-1.30); Calcium 9.6 mg/dL (8.5-10.1); Chloride 102 mmol/L (98-107); Estimated GFR 59.82 (mL/min/1.73m2); Glucose 109 mg/dL (74-106); Sodium 138 mmol/L (136-145); Total Protein 8.1 g/dL (6.4-8.2)
[2022-06-22 12:23] LABS: Troponin I < 50 ng/L (<or=60)
--- NOTE | 2022-06-22 12:42 | DI.VRAD_ITS ---
PROCEDURE INFORMATION: Exam: XR Chest Exam date and time: 06/22/2022 12:21 PM Age: 26 years old Clinical indication: Other: Chest pain TECHNIQUE: Imaging protocol: Radiologic exam of the chest. Views: 2 views. COMPARISON: CR XR CHEST 2V PA LATERAL 05/19/2022 12:05 AM FINDINGS: Lungs: Unremarkable. No consolidation. Pleural spaces: Unremarkable. No pleural effusion. No pneumothorax. Heart/Mediastinum: The cardiomediastinal silhouette is fairly stable in appearance. Bones/joints: Unremarkable. IMPRESSION: No evidence for acute pulmonary disease. Dictated and Authenticated by: Ricardo Herbert MD. Ordering:SHEMAR Silva MD
[2022-06-22 13:49] VITALS: BP 122/77; PULSE 83; TEMP 36.7; O2SAT 97
== END 2022-06-22 13:50 | disposition home or self-care (01) ==
PROVIDERS: Emergency Provider Emergency Medicine; PCP Family Medicine
DX: R07.9 Chest pain, unspecified (principal); K08.89 Other specified disorders of teeth and supporting structures; R11.2 Nausea with vomiting, unspecified; R19.7 Diarrhea, unspecified
CPT/HCPCS: 36415; 80053; 87493; 93005; 96361; 96374; 99284; 71046; 83735; 84484; 85025; 93010; J0780

== ENCOUNTER 2022-06-23 13:07 | Emergency (ER) | payer OTHER, SELFPAY ==
[2022-06-23 13:09] VITALS: BP 131/86; PULSE 123; RESP 18; TEMP 37.3; O2SAT 96
--- NOTE | 2022-06-23 13:36 | ED.GENADUL_ITS ---
Discharge Plan Disposition Patient Disposition: Home Condition: Improving Discharge Details Clinical Impression: Anxiety, Dyspnea Primary Care Provider: Brendon Vivar ED Provider: Barrington Arciniega Home Meds and New Rx's Prescriptions: Continued cyclobenzaprine 10 mg tablet 10 mg PO BID Qty: 180 3RF trazodone 100 mg tablet 100 mg PO HS Qty: 90 3RF lorazepam [Ativan] 1 mg tablet 1 mg PO TID PRN (Reason: anxiety) Qty: 42 0RF acetaminophen 325 mg capsule 650 mg PO Q6H PRN polyethylene glycol 3350 [Miralax] 17 gram powder in packet 17 g PO DAILY naloxegol 12.5 mg tablet 12.5 mg PO QAM Qty: 60 0RF Rx Instructions: must be taken on empty stomach; no food 1 hr after or 2-3 hrs before dose magnesium gluconate 27 mg magnesium (500 mg) tablet 1,000 mg PO TID Qty: 90 3RF methadone 10 mg/5 mL solution 110 mg PO QAM fluoxetine 20 mg capsule 60 mg PO DAILY Qty: 90 0RF calcium carbonate [Tums] 200 mg calcium (500 mg) tablet,chewable 1,000 mg PO BID Qty: 0 0RF Hold Instructions: Resume on 06/15/22. calcitriol 0.5 mcg capsule 0.5 mcg PO BID Qty: 360 3RF Hold Instructions: Resume on 06/15/22. gabapentin 600 mg tablet 800 mg PO TID ketorolac 10 mg tablet 10 mg PO TID PRN7 Days Qty: 20 0RF Rx Instructions: No additional ibuprofen/Motrin/Advil clindamycin HCl 150 mg capsule 450 mg PO TID Qty: 90 0RF doxycycline hyclate 100 mg Capsule 100 mg PO BID Discharge Instructions Instructions: Anxiety (ED), Dyspnea (ED) Additional Instructions: Your blood test is negative so further evaluation of a potential blood clot is not indicated. Please continue taking your medications as directed. Please follow the instructions given to you by the mental health team. Please watch for new or worsening symptoms and return to the ER for any concerns. Lastly, contact your primary care provider tomorrow to discuss your ER visit, ongoing symptoms, need for outpatient reevaluation. Medical Decision Making <ANDREW Magaña - Last Filed: 06/23/22 15:25> The patient is a 26-year-old male presenting today with chief complaint of shortness of breath. Patient was seen here yesterday for the same. Patient also went to [place] ER yesterday after being seen here. He reports that he was diagnosed with pneumonia and was started on doxycycline when at [facility]. Patient had already been on clindamycin for dental infection and was advised to stop this and continue the doxycycline. He states that he did take his dose this morning. Patient denies any cough, fevers or chills, congestion, sore throat. States that this shortness of breath woke him from sleep last night. States that he also is very anxious when he has these episodes. He took a dose of his as needed Ativan and symptoms improved. Patient denies any exertional component to his symptoms. He reports that symptoms can wax and wane. Endorses some discomfort when this is maximal at the left upper chest wall. Yesterday, patient was evaluated with troponin which was found to be negative. He does not have any personal or familial history of blood clots but patient's primarily concern at this time for blood clot given his persistent symptoms from yesterday. Reviewed notes from [facility]. While there, chest x-ray was obtained and was concerned for mild focal infiltrate versus soft tissue attenuation artifact involving the peripheral left mid lower lung field. Otherwise no acute abnormality. He did have a normal chest x-ray here yesterday. His patient is not having any cough or fevers, I have low suspicion for pneumonia. Patient was also screened both here and at [facility] with a CBC, CMP, UA, troponin and all of these were found to be within normal limits. On exam, patient is noted to be tachycardic but otherwise nontoxic. He appears incredibly anxious but is not having any respiratory distress. His lungs are clear in all beckett. He has no lower extremity edema. No pain elicited with palpation although he reports that he has chronic pain in his bilateral calves. At this time, I do not believe that a repeat CBC and CMP is warranted. Normal I feel that he needs a repeat chest x-ray as he has had the studies x2 yesterday. Does not feel that he needs repeat troponin is he has not had any significant substernal chest pain or any exertional component to his symptoms. His symptoms are more consistent with a anxiety attack. He does admit that he is been having increased anxiety. He does not have a therapist. He does have a psychiatrist and is on fluoxetine. He denies any thoughts of self-harm. He is interested in speaking with mental health and working with counseling. With we also discussed that the numerous imaging studies he has had over the past year can increase risks for cancer as well as other medical induced risks. I do understand where his concern for PE is coming from given his shortness of breath. He does not have any risk factors currently. He did have surgery last fall but is out of the range for an acute PE associated with this. However, with the tachycardia I do feel that it would be appropriate to screen with a D- dimer. D-dimer obtained and found to be well within normal limits. Patient feeling significantly improved after some IV Ativan. Patient is also receiving hydration. At the end of my shift, care transition to for Daniel Arciniega PA-C with mental health consultation pending. <ANDREW Chow - Last Filed: 06/23/22 16:46> The patient is a 26-year-old male presenting today with chief complaint of shortness of breath. Patient was seen here yesterday for the same. Patient also went to [place] ER yesterday after being seen here. He reports that he was diagnosed with pneumonia and was started on doxycycline when at [facility]. Patient had already been on clindamycin for dental infection and was advised to stop this and continue the doxycycline. He states that he did take his dose this morning. Patient denies any cough, fevers or chills, congestion, sore throat. States that this shortness of breath woke him from sleep last night. States that he also is very anxious when he has these episodes. He took a dose of his as needed Ativan and symptoms improved. Patient denies any exertional component to his symptoms. He reports that symptoms can wax and wane. Endorses some discomfort when this is maximal at the left upper chest wall. Yesterday, patient was evaluated with troponin which was found to be negative. He does not have any personal or familial history of blood clots but patient's primarily concern at this time for blood clot given his persistent symptoms from yesterday. Reviewed notes from [facility]. While there, chest x-ray was obtained and was concerned for mild focal infiltrate versus soft tissue attenuation artifact involving the peripheral left mid lower lung field. Otherwise no acute abnorm ality. He did have a normal chest x-ray here yesterday. His patient is not having any cough or fevers, I have low suspicion for pneumonia. Patient was also screened both here and at [facility] with a CBC, CMP, UA, troponin and all of these were found to be within normal limits. On exam, patient is noted to be tachycardic but otherwise nontoxic. He appears incredibly anxious but is not having any respiratory distress. His lungs are clear in all beckett. He has no lower extremity edema. No pain elicited with palpation although he reports that he has chronic pain in his bilateral calves. At this time, I do not believe that a repeat CBC and CMP is warranted. Normal I feel that he needs a repeat chest x-ray as he has had the studies x2 yesterday. Does not feel that he needs repeat troponin is he has not had any significant substernal chest pain or any exertional component to his symptoms. His symptoms are more consistent with a anxiety attack. He does admit that he is been having increased anxiety. He does not have a therapist. He does have a psychiatrist and is on fluoxetine. He denies any thoughts of self-harm. He is interested in speaking with mental health and working with counseling. With we also discussed that the numerous imaging studies he has had over the past year can increase risks for cancer as well as other medical induced risks. I do understand where his concern for PE is coming from given his shortness of breath. He does not have any risk factors currently. He did have surgery last fall but is out of the range for an acute PE associated with this. However, with the tachycardia I do feel that it would be appropriate to screen with a D- dimer. D-dimer obtained and found to be well within normal limits. Patient feeling significantly improved after some IV Ativan. Patient is also receiving hydration. At the end of my shift, care transition to for Daniel Arciniega PA-C with mental health consultation pending. 1530: Barrington Arciniega PA-C I assumed care of this 26-year-old male from my colleague ANDREW Jones, please see her initial HPI and examination. Patient is currently on antibiotics for potential pneumonia, D-dimer today was negative. Medical work-up completed. Patient appears well, nontoxic, hemodynamically stable. Upon my evaluation heart rate of 92. Patient is currently asymptomatic. Speaks in full sentences. No respiratory distress. He is awaiting mental health evaluation. He does state if the mental health evaluation does not soon he would like to be discharged. Mental health evaluation completed, please see their note. Standard discharge and return precautions were provided. Patient understands, is agreeable to this plan, and has no additional questions or concerns upon discharge. This documentation was generated using [employer] system, please disregard any oddities of phrase or misspellings. Medical Records Medical records reviewed: Yes I reviewed the patient's medical records. Lab Data Lab results reviewed: Yes I reviewed the patient's lab results. Labs: Laboratory Tests Range/Units 06/23/22 06/23/22 06/23/22 13:32 13:32 13:45 WBC Cancelled RBC Cancelled Hgb Cancelled Hct Cancelled MCV Cancelled MCH Cancelled MCHC Cancelled RDW Cancelled Plt Count Cancelled MPV Cancelled D-Dimer (<500) ng/mlFEU 253 Sodium Cancelled Potassium Cancelled Chloride Cancelled Carbon Dioxide Cancelled Anion Gap Cancelled BUN Cancelled Creatinine Cancelled Est GFR (CKD-EPI 2020) Cancelled Glucose Cancelled Calcium Cancelled HPI <ANDREW Magaña - Last Filed: 06/23/22 15:25> General Date/Time Provider Initiated Documentation: 06/23/22 13:09 . Limitations to Documentation: no limitations . Information obtained by: patient, RN notes reviewed and old records reviewed . History of Present Illness 26 year old M presents to the emergency department with the chief complaint of shortness of breath, described as severe and similar to prior episodes, and is localized to the chest. Patient reports no radiation. Patient started experiencing this day(s) and it has been intermittent. No relieving factors improve symptom(s), No exacerbating factors reported (woke him from sleep) . Patient notes no other symptoms.. Patient did receive the following treatments prior to arrival, other (on Doxycycline) Related Data Home Medications Medication Instructions Recorded Confirmed methadone 10 mg/5 mL oral solution 110 mg PO QAM 11/16/21 06/23/22 cyclobenzaprine 10 mg tablet 10 mg PO BID #180 tabs 04/19/22 06/23/22 lorazepam 1 mg tablet (Ativan) 1 mg PO TID PRN anxiety #42 tabs 05/13/22 06/23/22 trazodone 100 mg tablet 100 mg PO HS #90 tabs 05/13/22 06/23/22 gabapentin 600 mg tablet 800 mg PO TID 06/04/22 06/23/22 acetaminophen 325 mg capsule 650 mg PO Q6H PRN 06/07/22 06/23/22 naloxegol 12.5 mg tablet 12.5 mg PO QAM #60 tabs 06/07/22 06/23/22 polyethylene glycol 3350 17 gram 17 g PO DAILY 06/07/22 06/23/22 oral powder packet (Miralax) fluoxetine 20 mg capsule 60 mg PO DAILY #90 caps 06/12/22 06/23/22 calcitriol 0.5 mcg capsule 0.5 mcg PO BID #360 caps 06/14/22 06/23/22 calcium carbonate 200 mg calcium 1,000 mg PO BID #0 tabs 06/14/22 06/23/22 (500 mg) chewable tablet (Tums) ketorolac 10 mg tablet 10 mg PO TID PRN 7 days #20 tabs 06/19/22 06/23/22 clindamycin HCl 150 mg capsule 450 mg PO TID #90 caps 06/20/22 06/23/22 magnesium gluconate 27 mg 1,000 mg PO TID #90 tabs 06/21/22 06/23/22 magnesium (500 mg) tablet doxycycline hyclate 100 mg capsule 100 mg PO BID 06/23/22 06/23/22 Previous Rx's Medication Instructions Recorded cyclobenzaprine 10 mg tablet 10 mg PO BID #180 tabs 04/19/22 lorazepam 1 mg tablet (Ativan) 1 mg PO TID PRN anxiety #42 tabs 05/13/22 trazodone 100 mg tablet 100 mg PO HS #90 tabs 05/13/22 naloxegol 12.5 mg tablet 12.5 mg PO QAM #60 tabs 06/07/22 fluoxetine 20 mg capsule 60 mg PO DAILY #90 caps 06/12/22 calcitriol 0.5 mcg capsule 0.5 mcg PO BID #360 caps 06/14/22 calcium carbonate 200 mg calcium 1,000 mg PO BID #0 tabs 06/14/22 (500 mg) chewable tablet (Tums) ketorolac 10 mg tablet 10 mg PO TID PRN 7 days #20 tabs 06/19/22 clindamycin HCl 150 mg capsule 450 mg PO TID #90 caps 06/20/22 magnesium gluconate 27 mg 1,000 mg PO TID #90 tabs 06/21/22 magnesium (500 mg) tablet Allergies Allergy/AdvReac Type Severity Reaction Status Date / Time amoxicillin Allergy Intermediate Nausea Verified 06/22/22 11:47 codeine Allergy Intermediate Verified 06/22/22 11:47 General Stated Complaint: SOB ADRIANA: 3 Review of Systems <ANDREW Magaña - Last Filed: 06/23/22 15:25> Constitutional Constitutional: Reports as per HPI, Denies chills, Denies fever(s), Denies headache(s) and Denies poor appetite ENT Ears, Nose, Mouth, and Throat: Denies headache(s) Cardiovascular Cardiovascular: Reports as per HPI and Denies dyspnea on exertion Respiratory Respiratory: Reports as per HPI, Denies chest congestion, Denies cough, Denies pain on inspiration, Denies pain with cough and Denies dyspnea on exertion Gastrointestinal Gastrointestinal: Reports as per HPI, Denies abdominal pain, Denies diarrhea, Denies nausea and Denies vomiting Integumentary/Breasts Skin/Breast: Reports as per HPI and Denies rash Neurologic Neurologic: Reports as per HPI and Denies headache(s) Psychiatric Psychiatric: Reports anxiety and Reports panic attacks PFSH <ANDREW Magaña - Last Filed: 06/23/22 15:25> All Active Problems (Updated 06/23/22 @ 16:44 by ANDREW Chow) Pain, dental (Acute) Chest pain (Acute) Anxiety (Chronic) Dyspnea (Acute) Hypercalcemia due to a drug (Acute) FLORESITA (acute kidney injury) (Acute) Hypercalcemia (Acute) Acute renal insufficiency (Acute) Acute left flank pain (Acute) Pain, dental (Acute) Odontalgia (Acute) Pain, dental (Acute) Medication reaction (Acute) Therapeutic opioid induced constipation (Acute) Sphincter of Oddi dysfunction (Acute) Abnormal CT scan, kidney (Acute) Intrahepatic bile duct dilation (Acute) Common bile duct dilatation (Acute) Abdominal pain (Acute) Iatrogenic hypocalcemia (Acute) Multiple endocrine neoplasia type I (Chronic) Chronic constipation (Chronic) Primary hyperparathyroidism (Chronic) Depression (Chronic) Hypocalcemia (Chronic) Hypomagnesemia (Chronic) Depression (Chronic) Suicidal ideation (Acute) Elevated parathyroid hormone (Acute) Family history of coronary arteriosclerosis (Chronic) Father of AL at 50, mother had AL at 42 Severe anxiety with panic (Acute) Cellulitis (Acute) Medical History Anxiety Depression Family history of multiple endocrine neoplasia, type 1 Hyperlipidemia Hypocalcemia PTSD (post-traumatic stress disorder) Surgical History H/O parathyroidectomy Family History Mother Anxiety Asthma Depression Sister Anxiety Depression Father Cancer lung & stomach Depression Diabetes Hypertension MEN 1 (multiple endocrine neoplasia) Social History Smoking/Tobacco Use Status: Never Smoking risk assessment performed?: Yes Alcohol Intake: never Drug 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 Adopted: No Caregiver/Support person: No Foster care: No Household members: none Housing: house Number of Children: 0 Communication Needs: None Education Level: high school Do you need help understanding health information?: Never 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 and animals: Yes (Ally) Pets and animals: dog(s) Sexually active: No Do you think of yourself as: straight/heterosexual Current gender identity: male What is your relationship status?: How often do you talk on the phone with friends or family?: twice per week How often do you get together with friends or relatives?: never Do you belong to any clubs or organized social groups?: no Panel score (0-1 are the most socially isolated patients): 0 What type of physical activity do you participate in: walking Duration: 15-30 minutes/day Frequency: 5-6 times per week Maryam/Scientology: Hinduism Special maryam needs: No Seatbelt use: always Helmet use: Yes Helmet use: always Drive 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 Exam <ANDREW Magaña - Last Filed: 06/23/22 15:25> Const General: cooperative, healthy appearing, comfortable, no acute distress, well developed and anxious Nutritional Appearance: average body habitus and well nourished Orientation: alert, awake and oriented x3 HENMT Head: normal to inspection Ears: hearing grossly normal bilaterally Mouth: moist mucous membranes Chest Chest: normal inspection of the chest, normal palpation of entire chest wall and no crepitus Resp Effort & Inspection: normal respiratory effort, able to speak in complete sentences and no respiratory distress Auscultation: clear to auscultation bilaterally, no rales, no rhonchi and no wheezes Cardio Rate: regular rate Rhythm: regular rhythm Heart Sounds: S1 normal and S2 normal GI Inspection: normal to inspection, no edema and non-distended Palpation: soft, no hepatosplenomegaly, not firm, no guarding, not rigid and nontender Auscultation: normal bowel sounds Back/Spine/Pelvis Back: no CVA tenderness Thoracic/Lumbar Spine: thoracic and lumbar spine normal to inspection Skin General skin exam: no rashes or lesions noted Trauma: no lacerations or abrasions Neuro General: patient alert, patient awake and patient oriented x3 Cognition: normal cognition Speech: speech normal Gait: normal gait Extrem General: normal to inspection, capillary refill normal, no pedal edema, no calf tenderness and normal gait Psych Appearance: grossly normal and well kempt Mental Status: mental status grossly normal Speech and Movement: speech and movement normal Course <ANDREW Magaña - Last Filed: 06/23/22 15:25> Vital Signs Vital signs: Vital Signs Temperature 37.3 C 06/23/22 13:09 Pulse 123 H 06/23/22 13:09 Respiratory Rate 18 06/23/22 13:09 Blood Pressure 131/86 06/23/22 13:09 Pulse Oximetry 96 06/23/22 13:09 Temperature 37.3 C 06/23/22 13:09 Temperature Source Temporal Artery Scan 06/23/22 13:09 Pulse 123 H 06/23/22 13:09 Respiratory Rate 18 06/23/22 13:09 Respiratory Effort 06/23/22 13:13 Blood Pressure 131/86 06/23/22 13:09 Blood Pressure Position Sitting 06/23/22 13:09 Pulse Oximetry 96 06/23/22 13:09 Oxygen Delivery Method Room Air 06/23/22 13:09 Oxygen Flow Rate 0 06/23/22 13:09 Pain Level 6 06/23/22 13:09 Lab/Test Results Lab/Test Results: Laboratory Tests Range/Units 06/23/22 06/23/22 13:32 13:32 WBC Cancelled RBC Cancelled Hgb Cancelled Hct Cancelled MCV Cancelled MCH Cancelled MCHC Cancelled RDW Cancelled Plt Count Cancelled MPV Cancelled Sodium Cancelled Potassium Cancelled Chloride Cancelled Carbon Dioxide Cancelled Anion Gap Cancelled BUN Cancelled Creatinine Cancelled Est GFR (CKD-EPI 2020) Cancelled Glucose Cancelled Calcium Cancelled Sign Out <ANDREW Magaña - Last Filed: 06/23/22 15:25> Sign Out Data: Sign Out Comment: Care transition to Daniel Arciniega PA-C, with mental health consultation pending. Patient here with shortness of breath. Had 2 chest x-rays as well as troponin and other labs yesterday. D-dimer completed today as he was primarily concerned for PE and found to be within normal limits. He is also questioning if this could be significant anxiety as his symptoms do improve with Ativan. Disposition likely to home with safety plan and intake for continued mental health therapy. Last updated by Steph Jones PA at 06/23/22 15:26
[2022-06-23] MEDS: LORazepam 2 MG/ML VIAL 1 MG IVP (14:10)
[2022-06-23] MEDS: Lactated Ringers 1,000 ML 1000 ML IV (14:10)
[2022-06-23 14:20] LABS: D-Dimer 253 ng/mlFEU (<500)
--- NOTE | 2022-06-23 14:44 | NUR.NOTE ---
Pt resting in bed. acknowledges that anxiety is better at this time. O2 sat 100%. Pt ambulatory to restroom w/ steady gait. Nursing Note:
[2022-06-23 15:20] VITALS: BP 140/90; PULSE 105; RESP 18; O2SAT 99
[2022-06-23 16:59] VITALS: BP 132/89; PULSE 109; RESP 18; O2SAT 99
--- NOTE | 2022-06-23 23:09 | PDOC.MHCN_ITS ---
Date of service: 06/23/22 Time of Service: 23:09 PHQ-9 Over the last 2 weeks, how often have you been bothered by any of the following problems? 1. Little interest or pleasure in doing things: several days 2. Feeling down, depressed, or hopeless: several days 3. Trouble falling or staying asleep, or sleeping too much: more than half the days 4. Feeling tired or having little energy: nearly every day 5. Poor appetite or overeating: more than half the days 6. Feeling bad about yourself - or that you are a failure or have let yourself and your family down: not at all 7. Trouble concentrating on things, such as reading the newspaper or watching television: several days 8. Moving or speaking so slowly that other people could have noticed? - Or the opposite - being so fidgety or restless that you have been moving around a lot more than usual: not at all 9. Thoughts that you would be better off or of hurting yourself in some way: not at all Total score: 10 If you checked off any problems, how difficult have these problems made it for you to do your work, take care of things at home, or get along with other people?: somewhat difficult Source: Developed by Drs. Santiago Olivares, Yany Walker, Allan Guzman and colleagues, with an educational lauren from [employer]. Suicide Severity Rate CSSRS Have you wished you were or wished you could go to sleep and not wake up?: Yes Have you actually had any thoughts of killing yourself?: No CSSRS4 Was this within the past three months?: Yes Screening Score Total Score: 4 Screening: Positive Mental Health Emergency Note Release [facility] release signed:: Yes Reason for Visit This clinician was in the middle of another assessment at home when the page came in and the page had two individuals at [facility]. This clinician attended to the higher risk client upon arriving before this client which is why she did to respond in the 30 min request. Client presented to the ED with somatic complaint per the ED attending regarding breathing issues. Client informed ED personnel that he had gone ot [facility] after discharged from [facility] on 06.22.2022 and was informed he had pneumonia and was put on an antibiotic. ED attending Steph Jones reported that the client has been to the ED 7 times in just 2022 for somatic complaints and has had numerous work ups to include several CT and MRI scans and she worries for his physical health as a result. She reported that he is healthy and does not have said pneumonia per their imaging on 06.22.2022 however, he is known to frequent [facility], [facility] and [facility]. She believes his symptoms are related to an anxiety disorder and he denied having any supports. In the last 2 weeks has the pt presented for ES prior to today?: Yes, presented at [facility] ED and ED at another facility Client Information Client is: Adult Outpatient Well Housed: Yes Non Suicidal Self Injury Current: No History: No Safety Risk/Harm to Self or Others Current Ideation to Harm Self or Others: No Risk: Does risk to harm exist?: No Risk: N/A Duty to warn indicated: No Asssessment/Mental Status Appearance: Well groomed Attitude: Cooperative Behavior: Unremarkable Speech: Normal Affect: Normal Mood: Anxious Thought process: Goal directed Hallucinations: No Delusions: No Attention: Unremarkable Perception: Not impaired Orientation: Fully orientated Memory: Intact Insight: Fair Judgement: Fair Neurovegetative Symptoms Sleep: No change Appetitie: Decrease Interests: Decrease Energy: Decrease Libido: Not applicable Substance Use: Other (Sober 5 years ) Do you use nicotine?: No Have you used substances in the last 7 days?: No Additional Issues: Assaultive/Threatening Behavior: No Medical Concerns: No Client engaged in active self harm w/weapon: No Threatening to run away: No Child reported abuse/neglect: No Voluntarily presenting for services: Yes Domestic violence is a concern: No Extreme Psychosis or extreme behavior is present: Yes Impression Client is a 26 year old, single, male who lives in [facility]. He is currently in the process of moving. In additions he has had a recent scare of possible breast cancer and has a diagnosis of Men's One. Client has been to the ED at [facility] 7 times in the new year and has also frequented [facility] and [facility] for emergency care. It is the attendings professional opinion and that of this clinician that the client may be struggling with severe anxiety and due to his history of substance abuse should likely avoid prescriptions like Ativan even if they are PRN due to said history. Client's frequent visits to the ED for somatic complaints as well as, his breathing issues and worries of not being able to breathe suggest an anxiety disorder. This should be treated and he was directed to outreach to his PCP for this and has agreed to a referral in house at [facility] for counseling. Resources Arya reviewed and given:: [facility] and [facility] Plan/Disposition Recommended Disposition: PCP/Office visit, [facility] Services [facility] Services: Therapy and Therapy. Plan: Client encouraged to outreach to [facility] or [facility] before going to a hospital to see if support over the phone would be beneficial for symptoms. Client encouraged to outreach to his PCP to discuss medications such as non-addictive and longer lasting anxiety medications. Person reported agreement to plan: Yes Reports/communication Outcome discussed with: ED/Personnel
== END 2022-06-23 17:00 | disposition home or self-care (01) ==
PROVIDERS: Physician Assistant; Emergency Provider Physician Assistant; PCP Family Medicine
DX: F41.9 Anxiety disorder, unspecified (principal); R06.02 Shortness of breath; R07.89 Other chest pain; R00.0 Tachycardia, unspecified
CPT/HCPCS: 36415; 80048; 85027; 96361; 96374; 99284; 85379; J2060

== ENCOUNTER 2022-06-28 07:34 | Emergency (ER) | payer OTHER, SELFPAY ==
[2022-06-28 07:43] VITALS: BP 130/76; PULSE 109; RESP 18; TEMP 36.5; O2SAT 97
--- NOTE | 2022-06-28 07:45 | RT.EKG_ITS ---
APPROVED REPORT Exam: Resting ECG Reason for Exam: Chest pain Patient Location: E HR:103 bpm ECG Measurements Heart Rate 103 AXIS KS 176 P 38 QRSd 97 QRS 53 QT 383 T 12 QTc 501 Conclusion Sinus tachycardia...rate> 99 Prolonged QT interval...QTc >488mS sinsu tachycardia, normal axis, non ischemic
[2022-06-28 07:47] VITALS: RESP 18
--- NOTE | 2022-06-28 08:00 | DI.US_ITS ---
Exam(s) US LOWER EXTREMITY VENOUS RT EXAM: US LOWER EXTREMITY VENOUS RT CLINICAL HISTORY: swelling, fam hx of DVT TECHNIQUE: Right lower extremity venous ultrasound performed using grayscale, color-flow, and spectr al Doppler analysis. COMPARISON: No exams were available for comparison FINDINGS: The right common femoral, femoral and popliteal veins demonstrate normal compressibility, augmentatio n, and color Doppler. The posterior tibial veins are patent. The saphenofemoral junction is unremark able. There is no evidence of a Almazna cyst. The soft tissues are unremarkable. IMPRESSION: 1. No evidence of a right lower extremity DVT. 2. Findings were discussed with the emergency department at 9:43 a.m. on 06/28/2022. DATA REPOSITORY:
--- NOTE | 2022-06-28 08:10 | ED.GENADUL_ITS ---
Discharge Plan Disposition Patient Disposition: Home Condition: Improving Discharge Details Chief Complaint: Chest Pain Clinical Impression: Chest pain Primary Care Provider: Brendon Vivar ED Provider: Ajay Kennedy Home Meds and New Rx's Prescriptions: No Action cyclobenzaprine 10 mg tablet 10 mg PO BID Qty: 180 3RF trazodone 100 mg tablet 100 mg PO HS Qty: 90 3RF lorazepam [Ativan] 1 mg tablet 1 mg PO TID PRN (Reason: anxiety) Qty: 42 0RF acetaminophen 325 mg capsule 650 mg PO Q6H PRN polyethylene glycol 3350 [Miralax] 17 gram powder in packet 17 g PO DAILY naloxegol 12.5 mg tablet 12.5 mg PO QAM Qty: 60 0RF Rx Instructions: must be taken on empty stomach; no food 1 hr after or 2-3 hrs before dose magnesium gluconate 27 mg magnesium (500 mg) tablet 1,000 mg PO TID Qty: 90 3RF methadone 10 mg/5 mL solution 110 mg PO QAM fluoxetine 20 mg capsule 60 mg PO DAILY Qty: 90 0RF calcium carbonate [Tums] 200 mg calcium (500 mg) tablet,chewable 1,000 mg PO BID Qty: 0 0RF Hold Instructions: Resume on 06/15/22. calcitriol 0.5 mcg capsule 0.5 mcg PO BID Qty: 360 3RF Hold Instructions: Resume on 06/15/22. gabapentin 600 mg tablet 800 mg PO TID ketorolac 10 mg tablet 10 mg PO TID PRN7 Days Qty: 20 0RF Rx Instructions: No additional ibuprofen/Motrin/Advil clindamycin HCl 150 mg capsule 450 mg PO TID Qty: 90 0RF doxycycline hyclate 100 mg Capsule 100 mg PO BID Discharge Instructions Instructions: Chest Pain (ED) Additional Instructions: Please follow closely with your primary care physician. Medical Decision Making 26-year-old male family history of paternal DVT and PE which was fatal in 2019, patient presents with 1 day of intermittent sharp anterior chest pain nonexertional associated with swelling of right lower extremity, patient resting comfortably no respiratory distress no oxygen requirement, hemodynamically stable, mild tachycardia sinus rhythm on EKG. On examination possible slight right ankle edema nonpitting compared to left. Given family history tachycardia must assess for DVT and PE lower suspicion for ACS or aortic pathology pneumothorax or pneumonia, muscles consider musculoskeletal etiology such as costochondritis pleurisy or anxiety. Screening labs imaging including ultrasound right lower extremity and CT chest. Disposition pending results and imaging 11: 33 patient asymptomatic resting comfortably. CTA as well as ultrasound negative for thromboembolic process. Patient will follow with his primary care physician Home care instructions and return precautions given HPI General Date/Time Provider Initiated Documentation: 06/28/22 07:55 . HPI Narrative: 26-year-old male paternal history of DVT and PE which was fatal in 2019, presents with sharp chest pain intermittent over the last day associate with right lower extremity swelling. Related Data Home Medications Medication Instructions Recorded Confirmed methadone 10 mg/5 mL oral solution 110 mg PO QAM 11/16/21 06/28/22 cyclobenzaprine 10 mg tablet 10 mg PO BID #180 tabs 04/19/22 06/28/22 lorazepam 1 mg tablet (Ativan) 1 mg PO TID PRN anxiety #42 tabs 05/13/22 06/28/22 trazodone 100 mg tablet 100 mg PO HS #90 tabs 05/13/22 06/28/22 gabapentin 600 mg tablet 800 mg PO TID 06/04/22 06/28/22 acetaminophen 325 mg capsule 650 mg PO Q6H PRN 06/07/22 06/28/22 naloxegol 12.5 mg tablet 12.5 mg PO QAM #60 tabs 06/07/22 06/28/22 polyethylene glycol 3350 17 gram 17 g PO DAILY 06/07/22 06/28/22 oral powder packet (Miralax) fluoxetine 20 mg capsule 60 mg PO DAILY #90 caps 06/12/22 06/28/22 calcitriol 0.5 mcg capsule 0.5 mcg PO BID #360 caps 06/14/22 06/28/22 calcium carbonate 200 mg calcium 1,000 mg PO BID #0 tabs 06/14/22 06/28/22 (500 mg) chewable tablet (Tums) ketorolac 10 mg tablet 10 mg PO TID PRN 7 days #20 tabs 06/19/22 06/28/22 clindamycin HCl 150 mg capsule 450 mg PO TID #90 caps 06/20/22 06/28/22 magnesium gluconate 27 mg 1,000 mg PO TID #90 tabs 06/21/22 06/28/22 magnesium (500 mg) tablet doxycycline hyclate 100 mg capsule 100 mg PO BID 06/23/22 06/28/22 Previous Rx's Medication Instructions Recorded cyclobenzaprine 10 mg tablet 10 mg PO BID #180 tabs 04/19/22 lorazepam 1 mg tablet (Ativan) 1 mg PO TID PRN anxiety #42 tabs 05/13/22 trazodone 100 mg tablet 100 mg PO HS #90 tabs 05/13/22 naloxegol 12.5 mg tablet 12.5 mg PO QAM #60 tabs 06/07/22 fluoxetine 20 mg capsule 60 mg PO DAILY #90 caps 06/12/22 calcitriol 0.5 mcg capsule 0.5 mcg PO BID #360 caps 06/14/22 calcium carbonate 200 mg calcium 1,000 mg PO BID #0 tabs 06/14/22 (500 mg) chewable tablet (Tums) ketorolac 10 mg tablet 10 mg PO TID PRN 7 days #20 tabs 06/19/22 clindamycin HCl 150 mg capsule 450 mg PO TID #90 caps 06/20/22 magnesium gluconate 27 mg 1,000 mg PO TID #90 tabs 06/21/22 magnesium (500 mg) tablet Allergies Allergy/AdvReac Type Severity Reaction Status Date / Time amoxicillin Allergy Intermediate Nausea Verified 06/28/22 07:46 codeine Allergy Intermediate Verified 06/28/22 07:46 General Stated Complaint: Chest Pain ADRIANA: 3 Review of Systems Narrative: Review of Systems Constitutional: negative Eyes: negative ENT: negative Cardiovascular: Chest pain Respiratory: negative Gastrointestinal: negative : negative Musculoskeletal: Leg swelling Skin: negative Neurologic: negative Psych: negative PFSH All Active Problems (Updated 06/28/22 @ 11:33 by Ajay Kennedy MD) Pain, dental (Acute) Chest pain (Acute) Anxiety (Chronic) Dyspnea (Acute) Hypercalcemia due to a drug (Acute) FLORESITA (acute kidney injury) (Acute) Hypercalcemia (Acute) Acute renal insufficiency (Acute) Acute left flank pain (Acute) Pain, dental (Acute) Odontalgia (Acute) Pain, dental (Acute) Medication reaction (Acute) Therapeutic opioid induced constipation (Acute) Sphincter of Oddi dysfunction (Acute) Abnormal CT scan, kidney (Acute) Intrahepatic bile duct dilation (Acute) Common bile duct dilatation (Acute) Abdominal pain (Acute) Iatrogenic hypocalcemia (Acute) Multiple endocrine neoplasia type I (Chronic) Chronic constipation (Chronic) Primary hyperparathyroidism (Chronic) Depression (Chronic) Hypocalcemia (Chronic) Hypomagnesemia (Chronic) Depression (Chronic) Suicidal ideation (Acute) Elevated parathyroid hormone (Acute) Family history of coronary arteriosclerosis (Chronic) Father of DC at 50, mother had DC at 42 Severe anxiety with panic (Acute) Cellulitis (Acute) Medical History Anxiety Depression Family history of multiple endocrine neoplasia, type 1 Hyperlipidemia Hypocalcemia PTSD (post-traumatic stress disorder) Surgical History H/O parathyroidectomy Family History Mother Anxiety Asthma Depression Sister Anxiety Depression Father Cancer lung & stomach Depression Diabetes Hypertension MEN 1 (multiple endocrine neoplasia) Social History Smoking/Tobacco Use Status: Never Smoking risk assessment performed?: Yes Alcohol Intake: never Drug 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 Adopted: No Caregiver/Support person: No Foster care: No Household members: none Housing: house Number of Children: 0 Communication Needs: None Education Level: high school Do you need help understanding health information?: Never 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 and animals: Yes (Ally) Pets and animals: dog(s) Sexually active: No Do you think of yourself as: straight/heterosexual Current gender identity: male What is your relationship status?: How often do you talk on the phone with friends or family?: twice per week How often do you get together with friends or relatives?: never Do you belong to any clubs or organized social groups?: no Panel score (0-1 are the most socially isolated patients): 0 What type of physical activity do you participate in: walking Duration: 15-30 minutes/day Frequency: 5-6 times per week Maryam/Jew: [employer] maryam needs: No Seatbelt use: always Helmet use: Yes Helmet use: always Drive 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 driver material handler: No Do you feel safe at home: Yes Do you feel safe in your relationship?: Yes Exam Narrative Exam Narrative: Physical Examination General: alert, awake, cooperative, resting comfortably, no acute distress HEENT: normocephalic, atraumatic; PERRL, EOM intact, conjunctiva normal; no nasal discharge; moist mucous membranes, oral and pharyngeal mucosa normal, tolerating secretions Neck: supple, trachea midline; full ROM Chest: normal to inspection Respiratory: normal respiratory effort, speaking in full sentences, clear to auscultation, no wheezing, rales or rhonchi Cardiac: Tachycardia, regular rhythm, S1S2 intact, no murmurs rubs or gallops GI: abdomen soft, non-tender, non-distended; no palpable mass or hepatosplenomegaly Skin: no lesions, rashes or trauma appreciated Neuro: AAOx3, normal speech, moving all extremities Extremities: Possible slight edema to right ankle nonpitting compared to left Psych: Appropriate mood and affect Course Vital Signs Vital signs: Vital Signs Temperature 36.5 C 06/28/22 07:43 Pulse 109 H 06/28/22 07:43 Respiratory Rate 18 06/28/22 07:43 Blood Pressure 130/76 06/28/22 07:43 Pulse Oximetry 97 06/28/22 07:43 Temperature 36.5 C 06/28/22 07:43 Temperature Source Temporal Artery Scan 06/28/22 07:43 Pulse 109 H 06/28/22 07:43 Respiratory Rate 18 06/28/22 07:47 Respiratory Effort Non-Labored 06/28/22 07:47 Respiratory Depth Normal 06/28/22 07:47 Respiratory Pattern Normal 06/28/22 07:47 Blood Pressure 130/76 06/28/22 07:43 Blood Pressure Position Sitting 06/28/22 07:43 Pulse Oximetry 97 06/28/22 07:43 Oxygen Delivery Method Room Air 06/28/22 07:43 Oxygen Flow Rate 0 06/28/22 07:43
[2022-06-28 08:52] LABS: Abs Immature Grans 0.02 10^3/uL (0.0-0.06); Absolute Basophil Count 0.05 10^3/uL (0.0-0.2); Absolute Eosinophil Count 0.42 10^3/uL (0.0-0.7); Absolute Neutrophil Count 3.65 10^3/uL (1.2-6.7); Basophils % 0.7; Eosinophils % 5.7; HGB 11.2 g/dL (13.5-17.5); Immature Grans % 0.3; Lymphocytes % 31.3; MCH 30.9 pg (27.0-33.0); MCHC 33.9 % (32.0-36.0); MCV 91 fL (80-95); MPV 10.6 fL (8.0-11.0); Monocytes % 12.3; Neutrophils % 49.7; Platelet Count 264 10^3/uL (130-400); RBC 3.62 10^6/uL (4.36-5.78); RDW 11.9 % (11.8-14.1); RDW-SD 39.6 fL; WBC 7.34 10^3/uL (4.4-10.8)
[2022-06-28 09:12] LABS: ALT 20 U/L (16-63); AST 19 U/L (15-37); Albumin 3.5 g/dL (3.4-5.0); Alkaline Phosphatase 91 U/L (46-116); Anion Gap 2.1 mmol/L (3-11); BUN 8 mg/dL (7-18); Bilirubin, Total 0.3 mg/dL (0.2-1.0); CO2 33.9 mmol/L (21.0-32.0); CREATININE 1.3 mg/dL (0.70-1.30); Calcium 8.8 mg/dL (8.5-10.1); Chloride 100 mmol/L (98-107); Estimated GFR 76.74 (mL/min/1.73m2); Glucose 96 mg/dL (74-106); Potassium 3.7 mmol/L (3.5-5.1); Sodium 136 mmol/L (136-145); Total Protein 7.6 g/dL (6.4-8.2); Troponin I < 50 ng/L (<or=60)
[2022-06-28 09:14] LABS: NT-proBNP 29 pg/mL (<300)
[2022-06-28 10:02] VITALS: BP 121/70; PULSE 81; O2SAT 98
--- NOTE | 2022-06-28 10:41 | DI.CT_ITS ---
Exam(s) CT CHEST PE CTA EXAM: CT CHEST PE CTA CLINICAL HISTORY: chest pain, leg swelling, fam hx PE. TECHNIQUE: Imaging Protocol: Axial CT angiography was performed with multi-slice acquisition and mu lti-planar and/or 3D reconstructions. CONTRAST MATERIAL: Intravenous: Omnipaque 350 contrast volume:100 mL COMPARISON: CT CT RENAL COLIC WO from 06/12/2022 FINDINGS: Tracheobronchial tree: Patent where visualized. Pulmonary parenchyma: No consolidation or dominant measurable mass. No architectural distortion. Pulmonary Arteries: No evidence of filling defect to suggest pulmonary emboli. Mediastinum and Jessika: No dominant adenopathy or fluid collection. The esophagus is unremarkable. Visualized thyroid gland: Unremarkable. Pleura: No effusion or pneumothorax. Heart: The heart is not dilated. No coronary artery calcifications are seen. No pericardial effusion. Aorta: Thoracic aorta non-dilated. No evidence of dissection. Upper abdomen: Unremarkable. Soft tissues: There is bilateral gynecomastia. Bones: Within normal limits for the patient's age. IMPRESSION: 1. No evidence of pulmonary embolism, thoracic aortic dissection or aneurysm. 2. Findings were discussed with the Antoinette Templeton at 11:29 a.m. on 06/28/2022. RADIATION DOSE DELIVERED: 499.08mGy.cm Total DLP DATA REPOSITORY: All CT scans at this facility are submitted to the National Radiology Data Registry (NRDR) Dose Index Registry (DIR) with the [employer] (A[employer]). RADIATION OPTIMIZATION: All CT scans at this facility use at least one of these dose optimization te chniques: automated exposure control; mA and/or kV adjustment per patient size (includes targeted exa ms where dose is matched to clinical indication); or iterative reconstruction.
[2022-06-28] MEDS: Normal Saline - Diluent 50 ML VIAL IV (10:53)
[2022-06-28] MEDS: Omnipaque 350 MG/ML 500 ML BTL-Imaging package 100 ML IJ (10:54)
[2022-06-28] MEDS: Ibuprofen 400 MG TAB PO (11:00)
== END 2022-06-28 11:51 | disposition home or self-care (01) ==
PROVIDERS: Emergency Provider Emergency Medicine; PCP Family Medicine
DX: R07.89 Other chest pain (principal); R00.0 Tachycardia, unspecified; Z86.718 Personal history of other venous thrombosis and embolism; Z86.711 Personal history of pulmonary embolism
CPT/HCPCS: 36415; 71275; 80053; 93005; 99285; 83880; 84484; 85025; 93010; 93971

== ENCOUNTER 2022-07-04 20:00 | Emergency (ER) | payer OTHER, MEDICAID, SELFPAY ==
--- NOTE | 2022-07-04 20:00 | RT.EKG_ITS ---
APPROVED REPORT Exam: Resting ECG Reason for Exam: chest pain Patient Location: E HR:122 bpm ECG Measurements Heart Rate 122 AXIS [place] 147 P 78 QRSd 95 QRS 92 QT 338 T 11 QTc 482 Conclusion Sinus tachycardia...rate> 99 Ventricular premature complex...V complex w/ short R-R interval. Sinus. Normal axis. No STEMI.
[2022-07-04 20:04] VITALS: BP 121/84; PULSE 127; RESP 22; TEMP 36.6; O2SAT 99
--- NOTE | 2022-07-04 20:29 | NUR.NOTE ---
Nursing Note: Pt comes to the ED states that he is currently on abx for dental infection and was originally given abx amoxicillin and then it was changed due to history of allergic rx. tonight the pts mother gave her son have of a abx pill, the pt was the abx he is allergic to, the pt arrives anxious c/o palpations and not feeling well NARD, no hives noted, no angioedema. pt able to speak full sentences. EKG at triage done du to the pts HR and stating he is having left sided chest pain. Pt brought back to room and placed onto the monitor. IV established provider at bedside
[2022-07-04 20:40] LABS: Abs Immature Grans 0.03 10^3/uL (0.0-0.06); Absolute Basophil Count 0.05 10^3/uL (0.0-0.2); Absolute Eosinophil Count 0.35 10^3/uL (0.0-0.7); Absolute Lymphocyte Count 2.68 10^3/uL (1.2-3.4); Absolute Neutrophil Count 4.68 10^3/uL (1.2-6.7); Basophils % 0.6; Eosinophils % 4.1; HCT 33.9 % (40.0-50.0); HGB 11.6 g/dL (13.5-17.5); Immature Grans % 0.3; Lymphocytes % 31.2; MCH 31.3 pg (27.0-33.0); MCHC 34.2 % (32.0-36.0); MCV 91 fL (80-95); MPV 10.8 fL (8.0-11.0); Monocytes % 9.3; Neutrophils % 54.5; Platelet Count 284 10^3/uL (130-400); RBC 3.71 10^6/uL (4.36-5.78); RDW-SD 39.8 fL; WBC 8.59 10^3/uL (4.4-10.8)
[2022-07-04] MEDS: Acetaminophen 500 MG TAB 1000 MG PO (20:40)
[2022-07-04] MEDS: diphenhydrAMINE 50 MG/ML VIAL 25 MG IVP (20:40)
[2022-07-04] MEDS: Lactated Ringers 1,000 ML 1000 ML IV (20:41)
--- NOTE | 2022-07-04 20:45 | NUR.NOTE ---
Nursing Note: pt medicated
[2022-07-04 20:57] LABS: ALT 26 U/L (16-63); AST 21 U/L (15-37); Albumin 3.6 g/dL (3.4-5.0); Alkaline Phosphatase 99 U/L (46-116); Anion Gap 5.4 mmol/L (3-11); BUN 11 mg/dL (7-18); Bilirubin, Total 0.2 mg/dL (0.2-1.0); CO2 32.6 mmol/L (21.0-32.0); CREATININE 1.5 mg/dL (0.70-1.30); Calcium 8.7 mg/dL (8.5-10.1); Chloride 101 mmol/L (98-107); Estimated GFR 64.63 (mL/min/1.73m2); Glucose 136 mg/dL (74-106); Lipase 52 U/L (73-393); Potassium 3.2 mmol/L (3.5-5.1); Sodium 139 mmol/L (136-145); TSH (W/Ref FT4) 2.35 uIU/mL (0.36-3.74); Total Protein 7.7 g/dL (6.4-8.2)
[2022-07-04 21:13] LABS: Troponin I < 50 ng/L (<or=60)
[2022-07-04 21:15] VITALS: RESP 17
[2022-07-04 21:16] VITALS: BP 123/88; PULSE 109; RESP 17; O2SAT 98
--- NOTE | 2022-07-04 22:02 | NUR.NOTE ---
Referral to Care Management to refer patient to [facility] for Beckers Cyst.Nursing Note:
[2022-07-04 22:06] VITALS: BP 130/85; PULSE 98; RESP 18; O2SAT 96
--- NOTE | 2022-07-04 22:07 | NUR.NOTE ---
Nursing Note:Pt is anxious and has been sitting at the edge of his bed watching the heart monitor. the pt has had his arm bent so the IV fluids are still infusing. reassurance given to the pt
--- NOTE | 2022-07-04 22:16 | W.ED.GENAD ---
Discharge Plan Disposition Patient Disposition: Home Condition: Stable Discharge Details Clinical Impression: Heart palpitations, Acute hypokalemia Primary Care Provider: Brendon Vivar ED Provider: Luh Tsai Home Meds and New Rx's Prescriptions: New potassium chloride [K-Tab] 20 mEq tablet extended release 20 meq PO DAILY Qty: 7 0RF Continued cyclobenzaprine 10 mg tablet 10 mg PO BID Qty: 180 3RF trazodone 100 mg tablet 100 mg PO HS Qty: 90 3RF lorazepam [Ativan] 1 mg tablet 1 mg PO TID PRN (Reason: anxiety) Qty: 42 0RF acetaminophen 325 mg capsule 650 mg PO Q6H PRN polyethylene glycol 3350 [Miralax] 17 gram powder in packet 17 g PO DAILY naloxegol 12.5 mg tablet 12.5 mg PO QAM Qty: 60 0RF Rx Instructions: must be taken on empty stomach; no food 1 hr after or 2-3 hrs before dose magnesium gluconate 27 mg magnesium (500 mg) tablet 1,000 mg PO TID Qty: 90 3RF methadone 10 mg/5 mL solution 110 mg PO QAM fluoxetine 20 mg capsule 60 mg PO DAILY Qty: 90 0RF calcium carbonate [Tums] 200 mg calcium (500 mg) tablet,chewable 1,000 mg PO BID Qty: 0 0RF Hold Instructions: Resume on 06/15/22. calcitriol 0.5 mcg capsule 0.5 mcg PO BID Qty: 360 3RF Hold Instructions: Resume on 06/15/22. gabapentin 600 mg tablet 800 mg PO TID clindamycin HCl 150 mg capsule 450 mg PO TID Qty: 90 0RF doxycycline hyclate 100 mg Capsule 100 mg PO BID Discharge Instructions Instructions: Heart Palpitations (ED), Hypokalemia (ED) Additional Instructions: Start the potassium tomorrow You may take another dose of Benadryl when you arrive home if you need to You continue on your other prescribed medications Return earlier should you have new or worsening complaints Referrals: Brendon Vivar DO [Primary Care Provider] - 1 day Discharge Data Discharge Date/Time-TO BE ENTERED AT DEPARTURE: 07/04/22 22:32 Medical Decision Making This 26-year-old male who presents with report of possible allergic reaction to amoxicillin appears well, he is tachycardic on initial presentation however upon reviewing, he is typically tachycardic upon initial presentation, after fluids, Tylenol, and Benadryl, his tachycardia has essentially resolved and is at his baseline resting heart rate when compared to prior Labs are baseline for him, he has mild hypokalemia, will place him on potassium The remainder of his labs are baseline for him including his CBC, he has mild anemia that is unchanged He actually appears symptomatically improved at time of reassessment Low clinical suspicion for pulmonary embolism, no persistent hypoxia or tachycardia/tachypnea He is instructed to follow-up with his primary care physician for reassessment and to move his amoxicillin supply so that he does not take this in air again He is discharged home in stable condition with stable vitals, negative troponin, with symptoms greater than 24 hours, no obvious indication to repeat this at this time, no ischemia on patient's EKG HPI General Date/Time Provider Initiated Documentation: 07/04/22 20:32. HPI Narrative: This 26-year-old male known well to this facility presents with report of possible allergic reaction to amoxicillin. He reportedly was on amoxicillin previously for a dental infection for which she has been switched to clindamycin in the past week. Accidentally his mother gave him half a tablet of amoxicillin and he developed palpitations and mild shortness of breath immediately thereafter which is his reported complaint and allergy. He denies any difficulty swallowing. He has had intermittent chest pain since yesterday which is baseline for him. He denies any fever or chills. He denies any hemoptysis. Denies any calf pain or swelling or history of pulmonary embolism. He denies recent surgeries, flights, long drives, and is taking his medications as prescribed. Related Data Home Medications Medication Instructions Recorded Confirmed methadone 10 mg/5 mL oral solution 110 mg PO QAM 11/16/21 06/28/22 cyclobenzaprine 10 mg tablet 10 mg PO BID #180 tabs 04/19/22 06/28/22 lorazepam 1 mg tablet (Ativan) 1 mg PO TID PRN anxiety #42 tabs 05/13/22 06/28/22 trazodone 100 mg tablet 100 mg PO HS #90 tabs 05/13/22 06/28/22 gabapentin 600 mg tablet 800 mg PO TID 06/04/22 06/28/22 acetaminophen 325 mg capsule 650 mg PO Q6H PRN 06/07/22 06/28/22 naloxegol 12.5 mg tablet 12.5 mg PO QAM #60 tabs 06/07/22 06/28/22 polyethylene glycol 3350 17 gram 17 g PO DAILY 06/07/22 06/28/22 oral powder packet (Miralax) fluoxetine 20 mg capsule 60 mg PO DAILY #90 caps 06/12/22 06/28/22 calcitriol 0.5 mcg capsule 0.5 mcg PO BID #360 caps 06/14/22 06/28/22 calcium carbonate 200 mg calcium 1,000 mg PO BID #0 tabs 06/14/22 06/28/22 (500 mg) chewable tablet (Tums) clindamycin HCl 150 mg capsule 450 mg PO TID #90 caps 06/20/22 06/28/22 magnesium gluconate 27 mg 1,000 mg PO TID #90 tabs 06/21/22 06/28/22 magnesium (500 mg) tablet doxycycline hyclate 100 mg capsule 100 mg PO BID 06/23/22 06/28/22 potassium chloride 20 mEq 20 meq PO DAILY #7 tabs 07/04/22 tablet,extended release (K-Tab) Previous Rx's Medication Instructions Recorded cyclobenzaprine 10 mg tablet 10 mg PO BID #180 tabs 04/19/22 lorazepam 1 mg tablet (Ativan) 1 mg PO TID PRN anxiety #42 tabs 05/13/22 trazodone 100 mg tablet 100 mg PO HS #90 tabs 05/13/22 naloxegol 12.5 mg tablet 12.5 mg PO QAM #60 tabs 06/07/22 fluoxetine 20 mg capsule 60 mg PO DAILY #90 caps 06/12/22 calcitriol 0.5 mcg capsule 0.5 mcg PO BID #360 caps 06/14/22 calcium carbonate 200 mg calcium 1,000 mg PO BID #0 tabs 06/14/22 (500 mg) chewable tablet (Tums) clindamycin HCl 150 mg capsule 450 mg PO TID #90 caps 06/20/22 magnesium gluconate 27 mg 1,000 mg PO TID #90 tabs 06/21/22 magnesium (500 mg) tablet potassium chloride 20 mEq 20 meq PO DAILY #7 tabs 07/04/22 tablet,extended release (K-Tab) Allergies Allergy/AdvReac Type Severity Reaction Status Date / Time amoxicillin Allergy Intermediate Nausea Verified 06/28/22 07:46 codeine Allergy Intermediate Verified 06/28/22 07:46 General Stated Complaint: Allergic ADRIANA: 3 PFSH All Active Problems (Updated 07/05/22 @ 11:43 by Ryne De Leon MD) Pain, dental (Acute) Chest pain (Acute) Anxiety (Chronic) Dyspnea (Acute) Heart palpitations (Acute) Acute hypokalemia (Acute) Hypercalcemia due to a drug (Acute) FLORESITA (acute kidney injury) (Acute) Hypercalcemia (Acute) Acute renal insufficiency (Acute) Acute left flank pain (Acute) Pain, dental (Acute) Odontalgia (Acute) Pain, dental (Acute) Medication reaction (Acute) Therapeutic opioid induced constipation (Acute) Sphincter of Oddi dysfunction (Acute) Abnormal CT scan, kidney (Acute) Intrahepatic bile duct dilation (Acute) Common bile duct dilatation (Acute) Abdominal pain (Acute) Iatrogenic hypocalcemia (Acute) Multiple endocrine neoplasia type I (Chronic) Chronic constipation (Chronic) Primary hyperparathyroidism (Chronic) Depression (Chronic) Hypocalcemia (Chronic) Hypomagnesemia (Chronic) Depression (Chronic) Suicidal ideation (Acute) Elevated parathyroid hormone (Acute) Family history of coronary arteriosclerosis (Chronic) Father of [place] at 50, mother had [place] at 42 Severe anxiety with panic (Acute) Cellulitis (Acute) Medical History Anxiety Depression Family history of multiple endocrine neoplasia, type 1 Hyperlipidemia Hypocalcemia PTSD (post-traumatic stress disorder) Surgical History H/O parathyroidectomy Family History Mother Anxiety Asthma Depression Sister Anxiety Depression Father Cancer lung & stomach Depression Diabetes Hypertension MEN 1 (multiple endocrine neoplasia) Social History Smoking/Tobacco Use Status: Never Smoking risk assessment performed?: Yes Alcohol Intake: never Drug 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 Adopted: No Caregiver/Support person: No Foster care: No Household members: none Housing: house Number of Children: 0 Communication Needs: None Education Level: high school Do you need help understanding health information?: Never 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 and animals: Yes (Ally) Pets and animals: dog(s) Sexually active: No Do you think of yourself as: straight/heterosexual Current gender identity: male What is your relationship status?: How often do you talk on the phone with friends or family?: twice per week How often do you get together with friends or relatives?: never Do you belong to any clubs or organized social groups?: no Panel score (0-1 are the most socially isolated patients): 0 What type of physical activity do you participate in: walking Duration: 15-30 minutes/day Frequency: 5-6 times per week Maryam/Methodist: Yazidi Special maryam needs: No Seatbelt use: always Helmet use: Yes Helmet use: always 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 Exam Narrative Exam Narrative: Patient is alert and oriented, appears anxious Cooperative, fully alert and oriented Nipples equal round reactive to light and accommodation, no tachypnea, lungs clear to auscultation, mild tachycardia without murmur Nontender abdominal exam, oropharynx patent, uvula midline, no rashes or lesions, no calf swelling or tenderness, distal pulses intact Course Vital Signs Vital signs: Vital Signs Temperature 36.6 C 07/04/22 20:04 Pulse 127 H 07/04/22 20:04 Respiratory Rate 22 07/04/22 20:04 Blood Pressure 121/84 07/04/22 20:04 Pulse Oximetry 99 07/04/22 20:04 Temperature 36.6 C 07/04/22 20:04 Temperature Source Temporal Artery Scan 07/04/22 20:04 Pulse 98 H 07/04/22 22:06 Respiratory Rate 18 07/04/22 22:06 Respiratory Effort Non-Labored 07/04/22 21:15 Respiratory Depth Normal 07/04/22 21:15 Respiratory Pattern Normal 07/04/22 20:09 Blood Pressure 130/85 07/04/22 22:06 Blood Pressure Position Sitting 07/04/22 20:04 Pulse Oximetry 96 07/04/22 22:06 Oxygen Delivery Method Room Air 07/04/22 22:06 Oxygen Flow Rate 0 07/04/22 22:06 Lab/Test Results Lab/Test Results: Laboratory Tests Range/Units 0107/04/22 07/04/22 20:20 20:20 20:20 WBC (4.4-10.8) 10^3/uL 8.59 RBC (4.36-5.78) 10^6/uL 3.71 L Hgb (13.5-17.5) g/dL 11.6 L Hct (40.0-50.0) % 33.9 L MCV (80-95) fL 91 MCH (27.0-33.0) pg 31.3 MCHC (32.0-36.0) % 34.2 RDW (11.8-14.1) % 12.0 Plt Count (130-400) 10^3/uL 284 MPV (8.0-11.0) fL 10.8 Immature Gran % 0.3 Neutrophils % 54.5 Lymphocytes % 31.2 Monocytes % 9.3 Eosinophils % 4.1 Basophils % 0.6 Nucleated RBC % (0.0-0.3) % 0.0 Absolute Neutrophils (1.2-6.7) 10^3/uL 4.68 Absolute Lymphocytes (1.2-3.4) 10^3/uL 2.68 Absolute Monocytes (0.1-0.8) 10^3/uL 0.80 Absolute Eosinophils (0.0-0.7) 10^3/uL 0.35 Absolute Basophils (0.0-0.2) 10^3/uL 0.05 Sodium (136-145) mmol/L 139 Potassium (3.5-5.1) mmol/L 3.2 L Chloride (98-107) mmol/L 101 Carbon Dioxide (21.0-32.0) mmol/L 32.6 H Anion Gap (3-11) mmol/L 5.4 BUN (7-18) mg/dL 11 Creatinine (0.70-1.30) mg/dL 1.5 H Est GFR (CKD-EPI 2020) (mL/min/1.73m2) 64.63 Glucose (74-106) mg/dL 136 H Calcium (8.5-10.1) mg/dL 8.7 Total Bilirubin (0.2-1.0) mg/dL 0.2 AST (15-37) U/L 21 ALT (16-63) U/L 26 Alkaline Phosphatase (46-116) U/L 99 Troponin I (<or=60) ng/L < 50 Total Protein (6.4-8.2) g/dL 7.7 Albumin (3.4-5.0) g/dL 3.6 Lipase (73-393) U/L 52 TSH (0.36-3.74) uIU/mL 2.35
[2022-07-04 22:34] VITALS: BP 130/85; PULSE 101; RESP 20; O2SAT 99
== END 2022-07-04 22:32 | disposition home or self-care (01) ==
PROVIDERS: Emergency Provider Physician Assistant; PCP Family Medicine
DX: R00.2 Palpitations (principal); E87.6 Hypokalemia; D64.9 Anemia, unspecified
CPT/HCPCS: 80053; 83690; 93005; 96361; 96374; 99284; 84443; 84484; 85025; 93010; 99283; J1200

== ENCOUNTER 2022-07-05 10:07 | Emergency (ER) | payer OTHER, MEDICAID, SELFPAY ==
--- NOTE | 2022-07-05 10:00 | RT.EKG_ITS ---
APPROVED REPORT Exam: Resting ECG Reason for Exam: Chest pain Patient Location: E HR:84 bpm ECG Measurements Heart Rate 84 AXIS VT 170 P 62 QRSd 102 QRS 56 QT 401 T 36 QTc 474 Conclusion Sinus rhythm...normal P axis, V-rate 60- 99
[2022-07-05 10:11] VITALS: BP 130/67; PULSE 85; RESP 18; TEMP 36.9; O2SAT 94
--- NOTE | 2022-07-05 10:18 | W.ED.GENAD ---
Discharge Plan Discharge Details Chief Complaint: Chest Pain Primary Care Provider: Brendon Vivar ED Provider: Ryne De Leon Home Meds and New Rx's Prescriptions: No Action cyclobenzaprine 10 mg tablet 10 mg PO BID Qty: 180 3RF trazodone 100 mg tablet 100 mg PO HS Qty: 90 3RF lorazepam [Ativan] 1 mg tablet 1 mg PO TID PRN (Reason: anxiety) Qty: 42 0RF acetaminophen 325 mg capsule 650 mg PO Q6H PRN polyethylene glycol 3350 [Miralax] 17 gram powder in packet 17 g PO DAILY naloxegol 12.5 mg tablet 12.5 mg PO QAM Qty: 60 0RF Rx Instructions: must be taken on empty stomach; no food 1 hr after or 2-3 hrs before dose magnesium gluconate 27 mg magnesium (500 mg) tablet 1,000 mg PO TID Qty: 90 3RF methadone 10 mg/5 mL solution 110 mg PO QAM fluoxetine 20 mg capsule 60 mg PO DAILY Qty: 90 0RF calcium carbonate [Tums] 200 mg calcium (500 mg) tablet,chewable 1,000 mg PO BID Qty: 0 0RF Hold Instructions: Resume on 06/15/22. calcitriol 0.5 mcg capsule 0.5 mcg PO BID Qty: 360 3RF Hold Instructions: Resume on 06/15/22. gabapentin 600 mg tablet 800 mg PO TID clindamycin HCl 150 mg capsule 450 mg PO TID Qty: 90 0RF doxycycline hyclate 100 mg Capsule 100 mg PO BID potassium chloride [K-Tab] 20 mEq tablet extended release 20 meq PO DAILY Qty: 7 0RF HPI General Date/Time Provider Initiated Documentation: 07/05/22 10:14. HPI Narrative: 26-year-old male developed some anxiety and chest pains during his workout at the gym today. States that after 30 minutes on the bicycle he got anxious and did also chest pain. He states he was sweating at the time. No nausea no vomiting. No radiation of the chest pain. No nausea no vomiting. He has had these episodes multiple times. He states he felt very anxious and that he had not taken his 1 mg clonazepam this morning. Related Data Home Medications Medication Instructions Recorded Confirmed methadone 10 mg/5 mL oral solution 110 mg PO QAM 11/16/21 06/28/22 cyclobenzaprine 10 mg tablet 10 mg PO BID #180 tabs 04/19/22 06/28/22 lorazepam 1 mg tablet (Ativan) 1 mg PO TID PRN anxiety #42 tabs 05/13/22 06/28/22 trazodone 100 mg tablet 100 mg PO HS #90 tabs 05/13/22 06/28/22 gabapentin 600 mg tablet 800 mg PO TID 06/04/22 06/28/22 acetaminophen 325 mg capsule 650 mg PO Q6H PRN 06/07/22 06/28/22 naloxegol 12.5 mg tablet 12.5 mg PO QAM #60 tabs 06/07/22 06/28/22 polyethylene glycol 3350 17 gram 17 g PO DAILY 06/07/22 06/28/22 oral powder packet (Miralax) fluoxetine 20 mg capsule 60 mg PO DAILY #90 caps 06/12/22 06/28/22 calcitriol 0.5 mcg capsule 0.5 mcg PO BID #360 caps 06/14/22 06/28/22 calcium carbonate 200 mg calcium 1,000 mg PO BID #0 tabs 06/14/22 06/28/22 (500 mg) chewable tablet (Tums) clindamycin HCl 150 mg capsule 450 mg PO TID #90 caps 06/20/22 06/28/22 magnesium gluconate 27 mg 1,000 mg PO TID #90 tabs 06/21/22 06/28/22 magnesium (500 mg) tablet doxycycline hyclate 100 mg capsule 100 mg PO BID 06/23/22 06/28/22 potassium chloride 20 mEq 20 meq PO DAILY #7 tabs 07/04/22 tablet,extended release (K-Tab) Previous Rx's Medication Instructions Recorded cyclobenzaprine 10 mg tablet 10 mg PO BID #180 tabs 04/19/22 lorazepam 1 mg tablet (Ativan) 1 mg PO TID PRN anxiety #42 tabs 05/13/22 trazodone 100 mg tablet 100 mg PO HS #90 tabs 05/13/22 naloxegol 12.5 mg tablet 12.5 mg PO QAM #60 tabs 06/07/22 fluoxetine 20 mg capsule 60 mg PO DAILY #90 caps 06/12/22 calcitriol 0.5 mcg capsule 0.5 mcg PO BID #360 caps 06/14/22 calcium carbonate 200 mg calcium 1,000 mg PO BID #0 tabs 06/14/22 (500 mg) chewable tablet (Tums) clindamycin HCl 150 mg capsule 450 mg PO TID #90 caps 06/20/22 magnesium gluconate 27 mg 1,000 mg PO TID #90 tabs 06/21/22 magnesium (500 mg) tablet potassium chloride 20 mEq 20 meq PO DAILY #7 tabs 07/04/22 tablet,extended release (K-Tab) Allergies Allergy/AdvReac Type Severity Reaction Status Date / Time amoxicillin Allergy Intermediate Nausea Verified 06/28/22 07:46 codeine Allergy Intermediate Verified 06/28/22 07:46 General Stated Complaint: Chest Pain ADRIANA: 3 Review of Systems Narrative: Review of systems of systems essentially negative unless otherwise noted in the HPI PFSH All Active Problems (Updated 07/04/22 @ 22:23 by ANDREW Arriaga) Pain, dental (Acute) Chest pain (Acute) Anxiety (Chronic) Dyspnea (Acute) Heart palpitations (Acute) Acute hypokalemia (Acute) Hypercalcemia due to a drug (Acute) FLORESITA (acute kidney injury) (Acute) Hypercalcemia (Acute) Acute renal insufficiency (Acute) Acute left flank pain (Acute) Pain, dental (Acute) Odontalgia (Acute) Pain, dental (Acute) Medication reaction (Acute) Therapeutic opioid induced constipation (Acute) Sphincter of Oddi dysfunction (Acute) Abnormal CT scan, kidney (Acute) Intrahepatic bile duct dilation (Acute) Common bile duct dilatation (Acute) Abdominal pain (Acute) Iatrogenic hypocalcemia (Acute) Multiple endocrine neoplasia type I (Chronic) Chronic constipation (Chronic) Primary hyperparathyroidism (Chronic) Depression (Chronic) Hypocalcemia (Chronic) Hypomagnesemia (Chronic) Depression (Chronic) Suicidal ideation (Acute) Elevated parathyroid hormone (Acute) Family history of coronary arteriosclerosis (Chronic) Father of [place] at 50, mother had [place] at 42 Severe anxiety with panic (Acute) Cellulitis (Acute) Medical History Anxiety Depression Family history of multiple endocrine neoplasia, type 1 Hyperlipidemia Hypocalcemia PTSD (post-traumatic stress disorder) Surgical History H/O parathyroidectomy Family History Mother Anxiety Asthma Depression Sister Anxiety Depression Father Cancer lung & stomach Depression Diabetes Hypertension MEN 1 (multiple endocrine neoplasia) Social History Smoking/Tobacco Use Status: Never Smoking risk assessment performed?: Yes Alcohol Intake: never Drug 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 Adopted: No Caregiver/Support person: No Foster care: No Household members: none Housing: house Number of Children: 0 Communication Needs: None Education Level: high school Do you need help understanding health information?: Never 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 and animals: Yes (Ally) Pets and animals: dog(s) Sexually active: No Do you think of yourself as: straight/heterosexual Current gender identity: male What is your relationship status?: How often do you talk on the phone with friends or family?: twice per week How often do you get together with friends or relatives?: never Do you belong to any clubs or organized social groups?: no Panel score (0-1 are the most socially isolated patients): 0 What type of physical activity do you participate in: walking Duration: 15-30 minutes/day Frequency: 5-6 times per week Maryam/Anabaptism: Rastafarian Special maryam needs: No Seatbelt use: always Helmet use: Yes Helmet use: always 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 BMI is 32 Normocephalic atraumatic PERRLA EOMI MMM Anicteric Supple neck Chest is clear to auscultation bilaterally Heart regular rate no murmurs Abdomen soft nondistended nontender Extremities no edema Neuro grossly intact Skin no rashes Psych positive anxiety Course Patient arrives to the emergency department anxious and with residual chest pains. His EKG shows a normal sinus rhythm. Rate of 84. Normal ST segments and T waves. No signs of ischemia. I will give him his dose of clonazepam and observe him. 11:45 AM patient is symptom-free Vital Signs Vital signs: Vital Signs Temperature 36.9 C 07/05/22 10:11 Pulse 85 07/05/22 10:11 Respiratory Rate 18 07/05/22 10:11 Blood Pressure 130/67 07/05/22 10:11 Pulse Oximetry 94 07/05/22 10:11 Temperature 36.9 C 07/05/22 10:11 Temperature Source Oral 07/05/22 10:11 Pulse 85 07/05/22 10:11 Respiratory Rate 18 07/05/22 10:11 Blood Pressure 130/67 07/05/22 10:11 Pulse Oximetry 94 07/05/22 10:11 Oxygen Delivery Method Room Air 07/05/22 10:11 Oxygen Flow Rate 0 07/05/22 10:11 Pain Level 6 07/05/22 10:11
[2022-07-05] MEDS: clonazePAM 1 MG TAB PO (10:54)
[2022-07-05 11:04] VITALS: RESP 15
[2022-07-05 11:55] VITALS: BP 121/69; PULSE 85; RESP 18; O2SAT 96
== END 2022-07-05 11:56 | disposition home or self-care (01) ==
PROVIDERS: Emergency Provider Emergency Medicine; PCP Family Medicine
DX: R07.9 Chest pain, unspecified (principal); F41.9 Anxiety disorder, unspecified
CPT/HCPCS: 93005; 99283; 93010; 99284

== ENCOUNTER 2022-07-09 18:44 | Emergency (ER) | payer OTHER, MEDICAID, SELFPAY ==
[2022-07-09 18:53] VITALS: BP 124/86; PULSE 81; RESP 16; TEMP 36.2; O2SAT 96
--- NOTE | 2022-07-09 19:59 | NUR.NOTE ---
Nursing Note: Pt states that when he presses hard on his left bicep he can feel a lump, tender to the touch with hard pressure
== END 2022-07-09 20:15 ==
PROVIDERS: Emergency Provider Physician Assistant; PCP Family Medicine
DX: Z53.21 Procedure and treatment not carried out due to patient leaving prior to being seen by health care provider (principal)

== ENCOUNTER 2022-07-10 14:20 | Emergency (ER) | payer OTHER, SELFPAY ==
--- NOTE | 2022-07-10 14:15 | RT.EKG_ITS ---
APPROVED REPORT Exam: Resting ECG Reason for Exam: chest pain Patient Location: E HR:101 bpm ECG Measurements Heart Rate 101 AXIS ID 155 P 50 QRSd 92 QRS 71 QT 347 T 4 QTc 451 Conclusion Sinus tachycardia...rate> 99
[2022-07-10 14:24] VITALS: BP 138/83; PULSE 97; RESP 18; TEMP 37.7; O2SAT 98
[2022-07-10 14:31] VITALS: TEMP 36.6
--- NOTE | 2022-07-10 14:44 | ED.GENADUL_ITS ---
Discharge Plan Disposition Patient Disposition: Home Condition: Stable Discharge Details Clinical Impression: Lesion of tongue Primary Care Provider: Brendon Vivar ED Provider: Ricardo Crabtree Home Meds and New Rx's Prescriptions: New lorazepam 1 mg tablet 1 mg PO BID PRN (Reason: anxiety) Qty: 10 0RF Continued cyclobenzaprine 10 mg tablet 10 mg PO BID Qty: 180 3RF trazodone 100 mg tablet 100 mg PO HS Qty: 90 3RF lorazepam [Ativan] 1 mg tablet 1 mg PO TID PRN (Reason: anxiety) Qty: 42 0RF acetaminophen 325 mg capsule 650 mg PO Q6H PRN polyethylene glycol 3350 [Miralax] 17 gram powder in packet 17 g PO DAILY naloxegol 12.5 mg tablet 12.5 mg PO QAM Qty: 60 0RF Rx Instructions: must be taken on empty stomach; no food 1 hr after or 2-3 hrs before dose magnesium gluconate 27 mg magnesium (500 mg) tablet 1,000 mg PO TID Qty: 90 3RF methadone 10 mg/5 mL solution 110 mg PO QAM fluoxetine 20 mg capsule 60 mg PO DAILY Qty: 90 0RF calcium carbonate [Tums] 200 mg calcium (500 mg) tablet,chewable 1,000 mg PO BID Qty: 0 0RF Hold Instructions: Resume on 06/15/22. calcitriol 0.5 mcg capsule 0.5 mcg PO BID Qty: 360 3RF Hold Instructions: Resume on 06/15/22. gabapentin 600 mg tablet 800 mg PO TID potassium chloride [K-Tab] 20 mEq tablet extended release 20 meq PO DAILY Qty: 7 0RF No Action clindamycin HCl 150 mg capsule 450 mg PO TID Qty: 90 0RF doxycycline hyclate 100 mg Capsule 100 mg PO BID Discharge Instructions Additional Instructions: your tongue lesion is due to a virus and will heal on it's own follow up with your primary care provider in 1-2 weeks Medical Decision Making 26 yo male with hx of MENI, multiple visits for chest and abdominal complaints in the past, comes in with complaint of a tongue lesion he noticed this morning. HE did have some upper abdominal cramping earlier but that has resolved. no fe vers, chills, chest pain. Arrives stable speaking in full sentences in no distress caox4. HE does have 3small 2mm vesicles on the distal tongue otherwise no lesions, normal posterior pharynx, clear lungs, soft nontender abdomen. HE does note increase in his anxiety and states he ran out of his lorazepam 3 days ago. Suspect viral cause of his tongue lesion or possible due to stress, do not feel labs or imaging indicated given well appearances and reassuring vitals and exam. Will provide short course of lorazepam and advised to f/u with pcp, return precautions given Differential Diagnosis Differential Diagnosis: stress, anxiety, viral illness HPI General Mode of arrival: ambulatory . Date/Time Provider Initiated Documentation: 07/10/22 14:21 . Limitations to Documentation: no limitations . Information obtained by: patient . History of Present Illness 26 year old M presents to the emergency department with the chief complaint of tongue lesion, described as moderate, Patient started experiencing this day(s) (1) and it has been constant. No relieving factors improve symptom(s), No exacerbating factors reported . Patient notes denies fever/chills. Patient did receive the following treatments prior to arrival, none Related Data Home Medications Medication Instructions Recorded Confirmed methadone 10 mg/5 mL oral solution 110 mg PO QAM 11/16/21 06/28/22 cyclobenzaprine 10 mg tablet 10 mg PO BID #180 tabs 04/19/22 06/28/22 lorazepam 1 mg tablet (Ativan) 1 mg PO TID PRN anxiety #42 tabs 05/13/22 06/28/22 trazodone 100 mg tablet 100 mg PO HS #90 tabs 05/13/22 06/28/22 gabapentin 600 mg tablet 800 mg PO TID 06/04/22 06/28/22 acetaminophen 325 mg capsule 650 mg PO Q6H PRN 06/07/22 06/28/22 naloxegol 12.5 mg tablet 12.5 mg PO QAM #60 tabs 06/07/22 06/28/22 polyethylene glycol 3350 17 gram 17 g PO DAILY 06/07/22 06/28/22 oral powder packet (Miralax) fluoxetine 20 mg capsule 60 mg PO DAILY #90 caps 06/12/22 06/28/22 calcitriol 0.5 mcg capsule 0.5 mcg PO BID #360 caps 06/14/22 06/28/22 calcium carbonate 200 mg calcium 1,000 mg PO BID #0 tabs 06/14/22 06/28/22 (500 mg) chewable tablet (Tums) clindamycin HCl 150 mg capsule 450 mg PO TID #90 caps 06/20/22 06/28/22 magnesium gluconate 27 mg 1,000 mg PO TID #90 tabs 06/21/22 06/28/22 magnesium (500 mg) tablet doxycycline hyclate 100 mg capsule 100 mg PO BID 06/23/22 06/28/22 potassium chloride 20 mEq 20 meq PO DAILY #7 tabs 07/04/22 tablet,extended release (K-Tab) lorazepam 1 mg tablet 1 mg PO BID PRN anxiety #10 tabs 07/10/22 Previous Rx's Medication Instructions Recorded cyclobenzaprine 10 mg tablet 10 mg PO BID #180 tabs 04/19/22 lorazepam 1 mg tablet (Ativan) 1 mg PO TID PRN anxiety #42 tabs 05/13/22 trazodone 100 mg tablet 100 mg PO HS #90 tabs 05/13/22 naloxegol 12.5 mg tablet 12.5 mg PO QAM #60 tabs 06/07/22 fluoxetine 20 mg capsule 60 mg PO DAILY #90 caps 06/12/22 calcitriol 0.5 mcg capsule 0.5 mcg PO BID #360 caps 06/14/22 calcium carbonate 200 mg calcium 1,000 mg PO BID #0 tabs 06/14/22 (500 mg) chewable tablet (Tums) clindamycin HCl 150 mg capsule 450 mg PO TID #90 caps 06/20/22 magnesium gluconate 27 mg 1,000 mg PO TID #90 tabs 06/21/22 magnesium (500 mg) tablet potassium chloride 20 mEq 20 meq PO DAILY #7 tabs 07/04/22 tablet,extended release (K-Tab) lorazepam 1 mg tablet 1 mg PO BID PRN anxiety #10 tabs 07/10/22 Allergies Allergy/AdvReac Type Severity Reaction Status Date / Time amoxicillin Allergy Intermediate Nausea Verified 06/28/22 07:46 codeine Allergy Intermediate Verified 06/28/22 07:46 General Stated Complaint: GenMedical ADRIANA: 3 Review of Systems All systems reviewed & are unremarkable except as noted in HPI and below Constitutional Constitutional: Denies chills, Denies fever(s) and Denies weakness Cardiovascular Cardiovascular: Denies chest pain Respiratory Respiratory: Denies cough Gastrointestinal Gastrointestinal: Denies nausea and Denies vomiting Integumentary/Breasts Skin/Breast: Denies rash Neurologic Neurologic: Denies weakness PFSH All Active Problems (Updated 07/10/22 @ 14:45 by Ricardo Crabtree MD) Pain, dental (Acute) Chest pain (Acute) Anxiety (Chronic) Dyspnea (Acute) Heart palpitations (Acute) Acute hypokalemia (Acute) Lesion of tongue (Acute) Hypercalcemia due to a drug (Acute) FLORESITA (acute kidney injury) (Acute) Hypercalcemia (Acute) Acute renal insufficiency (Acute) Acute left flank pain (Acute) Pain, dental (Acute) Odontalgia (Acute) Pain, dental (Acute) Medication reaction (Acute) Therapeutic opioid induced constipation (Acute) Sphincter of Oddi dysfunction (Acute) Abnormal CT scan, kidney (Acute) Intrahepatic bile duct dilation (Acute) Common bile duct dilatation (Acute) Abdominal pain (Acute) Iatrogenic hypocalcemia (Acute) Multiple endocrine neoplasia type I (Chronic) Chronic constipation (Chronic) Primary hyperparathyroidism (Chronic) Depression (Chronic) Hypocalcemia (Chronic) Hypomagnesemia (Chronic) Depression (Chronic) Suicidal ideation (Acute) Elevated parathyroid hormone (Acute) Family history of coronary arteriosclerosis (Chronic) Father of [place] at 50, mother had [place] at 42 Severe anxiety with panic (Acute) Cellulitis (Acute) Medical History Anxiety Depression Family history of multiple endocrine neoplasia, type 1 Hyperlipidemia Hypocalcemia PTSD (post-traumatic stress disorder) Surgical History H/O parathyroidectomy Family History Mother Anxiety Asthma Depression Sister Anxiety Depression Father Cancer lung & stomach Depression Diabetes Hypertension MEN 1 (multiple endocrine neoplasia) Social History Smoking/Tobacco Use Status: Never Smoking risk assessment performed?: Yes Alcohol Intake: never Drug 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 Adopted: No Caregiver/Support person: No Foster care: No Household members: none Housing: house Number of Children: 0 Communication Needs: None Education Level: high school Do you need help understanding health information?: Never 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 and animals: Yes (Ally) Pets and animals: dog(s) Sexually active: No Do you think of yourself as: straight/heterosexual Current gender identity: male What is your relationship status?: How often do you talk on the phone with friends or family?: twice per week How often do you get together with friends or relatives?: never Do you belong to any clubs or organized social groups?: no Panel score (0-1 are the most socially isolated patients): 0 What type of physical activity do you participate in: walking Duration: 15-30 minutes/day Frequency: 5-6 times per week Maryam/Congregation: Jew Special maryam needs: No Seatbelt use: always Helmet use: Yes Helmet use: always Drive 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 solid waste truck 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 Exam Const General: no acute distress Orientation: alert HENMT Head: normal to inspection Ears: external ears normal General nose exam: external nose normal Mouth: moist mucous membranes Eyes General: appearance normal, both eyes and all related structures Neck Neck: normal visual inspection Resp Effort & Inspection: normal respiratory effort, able to speak in complete sentences and no audible wheezes Auscultation: clear to auscultation bilaterally Cardio Rate: regular rate Heart Sounds: no murmurs GI Palpation: soft and nontender Skin General skin exam: no rashes or lesions noted Neuro General: patient alert and patient oriented x3 Extrem General: normal to inspection Psych Mental Status: mental status grossly normal Course Vital Signs Vital signs: Vital Signs Temperature 37.7 C H 07/10/22 14:24 Pulse 97 H 07/10/22 14:24 Respiratory Rate 18 07/10/22 14:24 Blood Pressure 138/83 07/10/22 14:24 Pulse Oximetry 98 07/10/22 14:24 Temperature 36.6 C 07/10/22 14:31 Temperature Source Oral 07/10/22 14:31 Pulse 97 H 07/10/22 14:24 Respiratory Rate 18 07/10/22 14:24 Respiratory Effort 07/10/22 14:27 Blood Pressure 138/83 07/10/22 14:24 Blood Pressure Position Supine 07/10/22 14:24 Pulse Oximetry 98 07/10/22 14:24 Oxygen Delivery Method Room Air 07/10/22 14:24 Oxygen Flow Rate 0 07/10/22 14:24 Pain Level 5 07/10/22 14:24
== END 2022-07-10 14:55 | disposition home or self-care (01) ==
LOC: ER 15:09
PROVIDERS: Emergency Provider Emergency Medicine; PCP Family Medicine
DX: K14.9 Disease of tongue, unspecified (principal); F41.9 Anxiety disorder, unspecified; F32.A Depression, unspecified; F43.10 Post-traumatic stress disorder, unspecified; R07.9 Chest pain, unspecified
CPT/HCPCS: 93005; 99283; 93010; 99284

== ENCOUNTER 2022-07-10 16:05 | Emergency (ER) | payer OTHER, SELFPAY ==
[2022-07-10] VITALS (15 sets, daily range): BP systolic 105–123; BP diastolic 56–83; PULSE 70–100; RESP 6–18; TEMP 37; O2SAT 94–97
[2022-07-10 16:51] LABS: Abs Immature Grans 0.03 10^3/uL (0.0-0.06); Absolute Basophil Count 0.03 10^3/uL (0.0-0.2); Absolute Eosinophil Count 0.16 10^3/uL (0.0-0.7); Absolute Lymphocyte Count 1.12 10^3/uL (1.2-3.4); Absolute Monocyte Count 0.57 10^3/uL (0.1-0.8); Absolute Neutrophil Count 6.14 10^3/uL (1.2-6.7); Basophils % 0.4; HCT 31.8 % (40.0-50.0); HGB 10.9 g/dL (13.5-17.5); Immature Grans % 0.4; Lymphocytes % 13.9; MCH 31.3 pg (27.0-33.0); MCHC 34.3 % (32.0-36.0); MCV 91 fL (80-95); MPV 10.5 fL (8.0-11.0); Monocytes % 7.1; Neutrophils % 76.2; Platelet Count 252 10^3/uL (130-400); RBC 3.48 10^6/uL (4.36-5.78); RDW-SD 39.8 fL; WBC 8.05 10^3/uL (4.4-10.8)
--- NOTE | 2022-07-10 16:51 | ED.GENADUL_ITS ---
Discharge Plan Disposition Patient Disposition: Home Condition: Good Discharge Details Chief Complaint: GenMedical Clinical Impression: Tingling, Hypomagnesemia Primary Care Provider: Brendon Vivar ED Provider: Richy Eagle Home Meds and New Rx's Prescriptions: No Action cyclobenzaprine 10 mg tablet 10 mg PO BID Qty: 180 3RF trazodone 100 mg tablet 100 mg PO HS Qty: 90 3RF lorazepam [Ativan] 1 mg tablet 1 mg PO TID PRN (Reason: anxiety) Qty: 42 0RF acetaminophen 325 mg capsule 650 mg PO Q6H PRN polyethylene glycol 3350 [Miralax] 17 gram powder in packet 17 g PO DAILY naloxegol 12.5 mg tablet 12.5 mg PO QAM Qty: 60 0RF Rx Instructions: must be taken on empty stomach; no food 1 hr after or 2-3 hrs before dose magnesium gluconate 27 mg magnesium (500 mg) tablet 1,000 mg PO TID Qty: 90 3RF methadone 10 mg/5 mL solution 110 mg PO QAM fluoxetine 20 mg capsule 60 mg PO DAILY Qty: 90 0RF calcium carbonate [Tums] 200 mg calcium (500 mg) tablet,chewable 1,000 mg PO BID Qty: 0 0RF Hold Instructions: Resume on 06/15/22. calcitriol 0.5 mcg capsule 0.5 mcg PO BID Qty: 360 3RF Hold Instructions: Resume on 06/15/22. gabapentin 600 mg tablet 800 mg PO TID clindamycin HCl 150 mg capsule 450 mg PO TID Qty: 90 0RF doxycycline hyclate 100 mg Capsule 100 mg PO BID potassium chloride [K-Tab] 20 mEq tablet extended release 20 meq PO DAILY Qty: 7 0RF lorazepam 1 mg tablet 1 mg PO BID PRN (Reason: anxiety) Qty: 10 0RF Discharge Instructions Instructions: Hypomagnesemia (ED) Additional Instructions: At this time your magnesium was slightly low. Please continue to take your regular supplements. Follow-up closely with your [facility] physician. If you notice any worsening of your symptoms, or any new symptoms such as vomiting, diarrhea, fever, chills, shortness of breath, chest pain, numbness, weakness, or fainting , please return immediately to the emergency department for reevaluation. Please follow up with your primary care provider as soon as possible for reassessment and reevaluation. As always, it was a pleasure participating in your medical care today. Referrals: Brendon Vivar, [Primary Care Provider] - Medical Decision Making This is a 26-year-old male with a past medical history significant for anxiety, high cholesterol, men type I, multiple electrolyte abnormalities with subsequent parathyroidectomy on 03/26/2022 at [facility] [place], PTSD, and multiple subsequent visits here in the emergency department for highly fluctuant electrolyte levels as well as chronic abdominal pain. He presents today for evaluation of tingling in his fingers. He was seen here just a few hours ago, he states that over the last few hours he has had mild tingling in his fingers. States he has been taking his multiple home medications for calcium supplementation as directed. He denies any other headaches abdominal pain or other acute complaints. No other modifying factors. Physical exam demonstrates a well-appearing male, and negative chvosticks and Trousseau sign. Exam is otherwise reassuring. Vital signs notably stable. I do suspect he may have a mild electrolyte abnormality, will monitor closely and reassess. 6:10 PM Patient's laboratory work-up is stable, magnesium is low, calcium is baseline. Magnesium is 1.6. We will replete this, give an amp of calcium gluconate as well, with subsequent expected discharge. 6:45 PM Patient is requesting discharge. He looks well, symptoms resolved. Discussed red flags for which to return. I have extensively reviewed the treatment plan and discharge instructions with the patient. I have addressed all patient concerns at this time. The patient was made aware of what symptoms to monitor for that would warrant a return to the emergency department. Discussed the plan with the patient, they demonstrate verbal understanding and agreement with our assessment and plan at this time. The documentation in this chart was dictated using [employer] dictation software. Please excuse any dictation errors. HPI General Date/Time Provider Initiated Documentation: 07/10/22 16:23 . HPI Narrative: This is a 26-year-old male with a past medical history significant for anxiety, high cholesterol, men type I, multiple electrolyte abnormalities with subsequent parathyroidectomy on 03/26/2022 at [facility] [place], PTSD, and multiple subsequent visits here in the emergency department for highly fluctuant electrolyte levels as well as chronic abdominal pain. He presents today for evaluation of tingling in his fingers. He was seen here just a few hours ago, he states that over the last few hours he has had mild tingling in his fingers. States he has been taking his multiple home medications for calcium supplementation as directed. He denies any other headaches abdominal pain or other acute complaints. No other modifying factors. Related Data Home Medications Medication Instructions Recorded Confirmed methadone 10 mg/5 mL oral solution 110 mg PO QAM 11/16/21 07/10/22 cyclobenzaprine 10 mg tablet 10 mg PO BID #180 tabs 04/19/22 07/10/22 lorazepam 1 mg tablet (Ativan) 1 mg PO TID PRN anxiety #42 tabs 05/13/22 07/10/22 trazodone 100 mg tablet 100 mg PO HS #90 tabs 05/13/22 07/10/22 gabapentin 600 mg tablet 800 mg PO TID 06/04/22 07/10/22 acetaminophen 325 mg capsule 650 mg PO Q6H PRN 06/07/22 07/10/22 naloxegol 12.5 mg tablet 12.5 mg PO QAM #60 tabs 06/07/22 07/10/22 polyethylene glycol 3350 17 gram 17 g PO DAILY 06/07/22 07/10/22 oral powder packet (Miralax) fluoxetine 20 mg capsule 60 mg PO DAILY #90 caps 06/12/22 07/10/22 calcitriol 0.5 mcg capsule 0.5 mcg PO BID #360 caps 06/14/22 07/10/22 calcium carbonate 200 mg calcium 1,000 mg PO BID #0 tabs 06/14/22 07/10/22 (500 mg) chewable tablet (Tums) clindamycin HCl 150 mg capsule 450 mg PO TID #90 caps 06/20/22 07/10/22 magnesium gluconate 27 mg 1,000 mg PO TID #90 tabs 06/21/22 07/10/22 magnesium (500 mg) tablet doxycycline hyclate 100 mg capsule 100 mg PO BID 06/23/22 07/10/22 potassium chloride 20 mEq 20 meq PO DAILY #7 tabs 07/04/22 07/10/22 tablet,extended release (K-Tab) lorazepam 1 mg tablet 1 mg PO BID PRN anxiety #10 tabs 07/10/22 07/10/22 Previous Rx's Medication Instructions Recorded cyclobenzaprine 10 mg tablet 10 mg PO BID #180 tabs 04/19/22 lorazepam 1 mg tablet (Ativan) 1 mg PO TID PRN anxiety #42 tabs 05/13/22 trazodone 100 mg tablet 100 mg PO HS #90 tabs 05/13/22 naloxegol 12.5 mg tablet 12.5 mg PO QAM #60 tabs 06/07/22 fluoxetine 20 mg capsule 60 mg PO DAILY #90 caps 06/12/22 calcitriol 0.5 mcg capsule 0.5 mcg PO BID #360 caps 06/14/22 calcium carbonate 200 mg calcium 1,000 mg PO BID #0 tabs 06/14/22 (500 mg) chewable tablet (Tums) clindamycin HCl 150 mg capsule 450 mg PO TID #90 caps 06/20/22 magnesium gluconate 27 mg 1,000 mg PO TID #90 tabs 06/21/22 magnesium (500 mg) tablet potassium chloride 20 mEq 20 meq PO DAILY #7 tabs 07/04/22 tablet,extended release (K-Tab) lorazepam 1 mg tablet 1 mg PO BID PRN anxiety #10 tabs 07/10/22 Allergies Allergy/AdvReac Type Severity Reaction Status Date / Time amoxicillin Allergy Intermediate Nausea Verified 07/10/22 16:36 codeine Allergy Intermediate Verified 07/10/22 16:36 General Stated Complaint: GenMedical ADRIANA: 3 Review of Systems All systems reviewed & are unremarkable except as noted in HPI and below PFSH All Active Problems (Updated 07/10/22 @ 18:44 by Richy Eagle DO) Pain, dental (Acute) Chest pain (Acute) Anxiety (Chronic) Dyspnea (Acute) Heart palpitations (Acute) Acute hypokalemia (Acute) Lesion of tongue (Acute) Tingling (Acute) Hypomagnesemia (Acute) Hypercalcemia due to a drug (Acute) FLORESITA (acute kidney injury) (Acute) Hypercalcemia (Acute) Acute renal insufficiency (Acute) Acute left flank pain (Acute) Pain, dental (Acute) Odontalgia (Acute) Pain, dental (Acute) Medication reaction (Acute) Therapeutic opioid induced constipation (Acute) Sphincter of Oddi dysfunction (Acute) Abnormal CT scan, kidney (Acute) Intrahepatic bile duct dilation (Acute) Common bile duct dilatation (Acute) Abdominal pain (Acute) Iatrogenic hypocalcemia (Acute) Multiple endocrine neoplasia type I (Chronic) Chronic constipation (Chronic) Primary hyperparathyroidism (Chronic) Depression (Chronic) Hypocalcemia (Chronic) Hypomagnesemia (Chronic) Depression (Chronic) Suicidal ideation (Acute) Elevated parathyroid hormone (Acute) Family history of coronary arteriosclerosis (Chronic) Father of [place] at 50, mother had [place] at 42 Severe anxiety with panic (Acute) Cellulitis (Acute) Medical History Anxiety Depression Family history of multiple endocrine neoplasia, type 1 Hyperlipidemia Hypocalcemia PTSD (post-traumatic stress disorder) Surgical History H/O parathyroidectomy Family History Mother Anxiety Asthma Depression Sister Anxiety Depression Father Cancer lung & stomach Depression Diabetes Hypertension MEN 1 (multiple endocrine neoplasia) Social History Smoking/Tobacco Use Status: Never Smoking risk assessment performed?: Yes Alcohol Intake: never Drug 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 Adopted: No Caregiver/Support person: No Foster care: No Household members: none Housing: house Number of Children: 0 Communication Needs: None Education Level: high school Do you need help understanding health information?: Never 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 and animals: Yes (Ally) Pets and animals: dog(s) Sexually active: No Do you think of yourself as: straight/heterosexual Current gender identity: male What is your relationship status?: How often do you talk on the phone with friends or family?: twice per week How often do you get together with friends or relatives?: never Do you belong to any clubs or organized social groups?: no Panel score (0-1 are the most socially isolated patients): 0 What type of physical activity do you participate in: walking Duration: 15-30 minutes/day Frequency: 5-6 times per week Maryam/Christian: Lutheran Special maryam needs: No Seatbelt use: always Helmet use: Yes Helmet use: always Drive 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 driver/guide: No Do you feel safe at home: Yes Do you feel safe in your relationship?: Yes Exam Narrative Exam Narrative: 1.Const: Well-nourished, Well-developed, appearing stated age 2.Eyes: PERRL, no conjunctival injection, and symmetrical lids. 3.ENT: Atraumatic external nose and ears. Moist MM. Neck: Symmetric, trachea midline, No thyromegaly. 4.CVS: +S1/S2, No murmurs or gallops. Peripheral pulses 2+ and equal in all extremities. Brisk capillary refill in all extremities. 5.RESP: Unlabored respiratory effort. Clear to auscultation bilaterally. No wheezes rales or rhonchi 6.GI: Soft, Nontender/Nondistended, No hepatosplenomegaly. No guarding or rebound. 7.MSK: Normocephalic/Atraumatic, Extremities w/o deformity or ttp No cyanosis or clubbing, Normal movement of all extremities. Negative for chvosticTrousseau sign 8.Skin: Warm, Dry. No rashes or lesions. 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 Sensation grossly intact, no focal neurologic deficits. 10.Psych: (AAO) x3. Appropriate mood and affect Course Vital Signs Vital signs: Vital Signs Temperature 37.0 C 07/10/22 16:09 Pulse 100 H 07/10/22 16:09 Respiratory Rate 18 07/10/22 16:09 Blood Pressure 123/83 07/10/22 16:09 Pulse Oximetry 97 07/10/22 16:09 Temperature 37.0 C 07/10/22 16:09 Temperature Source Tympanic 07/10/22 16:09 Pulse 100 H 07/10/22 16:09 Respiratory Rate 18 07/10/22 16:09 Respiratory Effort 07/10/22 16:34 Respiratory Depth Normal 07/10/22 16:34 Respiratory Pattern Normal 07/10/22 16:34 Blood Pressure 123/83 07/10/22 16:09 Blood Pressure Position Supine 07/10/22 16:09 Pulse Oximetry 97 07/10/22 16:09 Oxygen Delivery Method Room Air 07/10/22 16:09 Oxygen Flow Rate 0 07/10/22 16:09 Pain Level 5 07/10/22 16:09
[2022-07-10 17:00] LABS: ALT 27 U/L (16-63); AST 19 U/L (15-37); Albumin 3.7 g/dL (3.4-5.0); Alkaline Phosphatase 93 U/L (46-116); Anion Gap 4.7 mmol/L (3-11); BUN 13 mg/dL (7-18); Bilirubin, Total 0.4 mg/dL (0.2-1.0); CO2 32.3 mmol/L (21.0-32.0); CREATININE 1.3 mg/dL (0.70-1.30); Calcium 8.8 mg/dL (8.5-10.1); Chloride 101 mmol/L (98-107); Estimated GFR 76.74 (mL/min/1.73m2); Glucose 137 mg/dL (74-106); Magnesium 1.6 mg/dL (1.8-2.4); Potassium 3.9 mmol/L (3.5-5.1); Sodium 138 mmol/L (136-145); Total Protein 7.9 g/dL (6.4-8.2)
[2022-07-10] MEDS: Calcium Gluconate 4.65 MEQ/10 ML VIAL 4.65 MG IVP (17:48)
[2022-07-10] MEDS: MAGNESIUM SULFATE 2 GM/50 ML BAG IVPB (18:00)
== END 2022-07-10 18:52 | disposition home or self-care (01) ==
PROVIDERS: Emergency Provider Student in an Organized Health Care Education/Training Program; PCP Family Medicine
DX: E83.42 Hypomagnesemia (principal); R20.2 Paresthesia of skin; E78.00 Pure hypercholesterolemia, unspecified
CPT/HCPCS: 36415; 80053; 96365; 96375; 99284; 83735; 85025; J0610

== ENCOUNTER 2022-07-17 04:39 | Emergency (ER) | payer OTHER, SELFPAY ==
[2022-07-17 04:42] VITALS: BP 118/91; PULSE 100; RESP 20; TEMP 36.7; O2SAT 98
--- NOTE | 2022-07-17 04:50 | NUR.NOTE ---
MD Fco at bedside for FAST exam
--- NOTE | 2022-07-17 04:52 | W.ED.GENAD ---
Discharge Plan Disposition Patient Disposition: Home Condition: Good Discharge Details Chief Complaint: GenMedical Clinical Impression: Phlebitis Primary Care Provider: Brendon Vivar ED Provider: Richy Eagle Home Meds and New Rx's Prescriptions: No Action cyclobenzaprine 10 mg tablet 10 mg PO BID Qty: 180 3RF trazodone 100 mg tablet 100 mg PO HS Qty: 90 3RF lorazepam [Ativan] 1 mg tablet 1 mg PO TID PRN (Reason: anxiety) Qty: 42 0RF acetaminophen 325 mg capsule 650 mg PO Q6H PRN polyethylene glycol 3350 [Miralax] 17 gram powder in packet 17 g PO DAILY naloxegol 12.5 mg tablet 12.5 mg PO QAM Qty: 60 0RF Rx Instructions: must be taken on empty stomach; no food 1 hr after or 2-3 hrs before dose magnesium gluconate 27 mg magnesium (500 mg) tablet 1,000 mg PO TID Qty: 90 3RF methadone 10 mg/5 mL solution 110 mg PO QAM calcium carbonate [Tums] 200 mg calcium (500 mg) tablet,chewable 1,000 mg PO BID Qty: 0 0RF Hold Instructions: Resume on 06/15/22. calcitriol 0.5 mcg capsule 0.5 mcg PO BID Qty: 360 3RF Hold Instructions: Resume on 06/15/22. fluoxetine 20 mg capsule 60 mg PO DAILY Qty: 270 3RF gabapentin 800 mg tablet 800 mg PO TID Qty: 270 2RF gabapentin 600 mg tablet 800 mg PO TID clindamycin HCl 150 mg capsule 450 mg PO TID Qty: 90 0RF doxycycline hyclate 100 mg Capsule 100 mg PO BID potassium chloride [K-Tab] 20 mEq tablet extended release 20 meq PO DAILY Qty: 7 0RF lorazepam 1 mg tablet 1 mg PO BID PRN (Reason: anxiety) Qty: 10 0RF Discharge Instructions Instructions: Phlebitis (ED) Additional Instructions: At this time you have irritation of the vessels in your left arm. No evidence of infection or blood clot at this time. Please take Tylenol and Motrin as needed for pain. You can use ice primarily to help with the inflammation, but sometimes heat can also be beneficial if the ice is not. If you notice any worsening of your symptoms, or any new symptoms such as vomiting, diarrhea, fever, chills, shortness of breath, chest pain, numbness, weakness, or fainting , please return immediately to the emergency department for reevaluation. Please follow up with your primary care provider as soon as possible for reassessment and reevaluation. As always, it was a pleasure participating in your medical care today. Referrals: Brendon Vivar DO [Primary Care Provider] - Medical Decision Making 26-year-old male with a very complex past medical history presents today for left arm pain. He has mild irritation at the sites where he has had his IVs recently. He states that he has been tender for the last few hours. Most recent time that he had any IVs was 4 days ago. He denies any fever chills, cough, shortness of breath or chest pain. No history of blood clots. He has not taken any Tylenol or Motrin for the pain. No other complaints at this time. The patient's physical exam demonstrates 2 small bruises on the left forearm, one at the AC, 1 at the mid forearm. No redness, warmth or evidence of infection or significant phlebitis. Bedside ultrasound was performed from the wrist to the axillary region and all vessels are compressible with no evidence of acute blood clot. Symptoms are consistent with very mild phlebitis or irritation. Recommend Tylenol Motrin for pain, ice and heat as needed. Discussed red flags for which to return. Symptoms are inconsistent with cellulitis, abscess, DVT, or necrotizing fasciitis. I have extensively reviewed the treatment plan and discharge instructions with the patient. I have addressed all patient concerns at this time. The patient was made aware of what symptoms to monitor for that would warrant a return to the emergency department. Discussed the plan with the patient, they demonstrate verbal understanding and agreement with our assessment and plan at this time. The documentation in this chart was dictated using [employer] dictation software. Please excuse any dictation errors. HPI General Date/Time Provider Initiated Documentation: 07/17/22 04:44. HPI Narrative: 26-year-old male with a very complex past medical history presents today for left arm pain. He has mild irritation at the sites where he has had his IVs recently. He states that he has been tender for the last few hours. Most recent time that he had any IVs was 4 days ago. He denies any fever chills, cough, shortness of breath or chest pain. No history of blood clots. He has not taken any Tylenol or Motrin for the pain. No other complaints at this time. Related Data Home Medications Medication Instructions Recorded Confirmed methadone 10 mg/5 mL oral solution 110 mg PO QAM 11/16/21 07/10/22 cyclobenzaprine 10 mg tablet 10 mg PO BID #180 tabs 04/19/22 07/10/22 lorazepam 1 mg tablet (Ativan) 1 mg PO TID PRN anxiety #42 tabs 05/13/22 07/10/22 trazodone 100 mg tablet 100 mg PO HS #90 tabs 05/13/22 07/10/22 gabapentin 600 mg tablet 800 mg PO TID 06/04/22 07/10/22 acetaminophen 325 mg capsule 650 mg PO Q6H PRN 06/07/22 07/10/22 naloxegol 12.5 mg tablet 12.5 mg PO QAM #60 tabs 06/07/22 07/10/22 polyethylene glycol 3350 17 gram 17 g PO DAILY 06/07/22 07/10/22 oral powder packet (Miralax) calcitriol 0.5 mcg capsule 0.5 mcg PO BID #360 caps 06/14/22 07/10/22 calcium carbonate 200 mg calcium 1,000 mg PO BID #0 tabs 06/14/22 07/10/22 (500 mg) chewable tablet (Tums) clindamycin HCl 150 mg capsule 450 mg PO TID #90 caps 06/20/22 07/10/22 magnesium gluconate 27 mg 1,000 mg PO TID #90 tabs 06/21/22 07/10/22 magnesium (500 mg) tablet doxycycline hyclate 100 mg capsule 100 mg PO BID 06/23/22 07/10/22 potassium chloride 20 mEq 20 meq PO DAILY #7 tabs 07/04/22 07/10/22 tablet,extended release (K-Tab) lorazepam 1 mg tablet 1 mg PO BID PRN anxiety #10 tabs 07/10/22 07/10/22 fluoxetine 20 mg capsule 60 mg PO DAILY #270 caps 07/16/22 gabapentin 800 mg tablet 800 mg PO TID #270 tabs 07/16/22 Previous Rx's Medication Instructions Recorded cyclobenzaprine 10 mg tablet 10 mg PO BID #180 tabs 04/19/22 lorazepam 1 mg tablet (Ativan) 1 mg PO TID PRN anxiety #42 tabs 05/13/22 trazodone 100 mg tablet 100 mg PO HS #90 tabs 05/13/22 naloxegol 12.5 mg tablet 12.5 mg PO QAM #60 tabs 06/07/22 calcitriol 0.5 mcg capsule 0.5 mcg PO BID #360 caps 06/14/22 calcium carbonate 200 mg calcium 1,000 mg PO BID #0 tabs 06/14/22 (500 mg) chewable tablet (Tums) clindamycin HCl 150 mg capsule 450 mg PO TID #90 caps 06/20/22 magnesium gluconate 27 mg 1,000 mg PO TID #90 tabs 06/21/22 magnesium (500 mg) tablet potassium chloride 20 mEq 20 meq PO DAILY #7 tabs 07/04/22 tablet,extended release (K-Tab) lorazepam 1 mg tablet 1 mg PO BID PRN anxiety #10 tabs 07/10/22 fluoxetine 20 mg capsule 60 mg PO DAILY #270 caps 07/16/22 gabapentin 800 mg tablet 800 mg PO TID #270 tabs 07/16/22 Allergies Allergy/AdvReac Type Severity Reaction Status Date / Time amoxicillin Allergy Intermediate Nausea Verified 07/10/22 16:36 codeine Allergy Intermediate Verified 07/10/22 16:36 General Stated Complaint: GenMedical ADRIANA: 4 Review of Systems All systems reviewed & are unremarkable except as noted in HPI and below PFSH All Active Problems Pain, dental (Acute) Chest pain (Acute) Anxiety (Chronic) Dyspnea (Acute) Heart palpitations (Acute) Acute hypokalemia (Acute) Lesion of tongue (Acute) Tingling (Acute) Hypomagnesemia (Acute) Phlebitis (Acute) Pain, dental (Acute) Odontalgia (Acute) Pain, dental (Acute) Medication reaction (Acute) Therapeutic opioid induced constipation (Acute) Sphincter of Oddi dysfunction (Acute) Abnormal CT scan, kidney (Acute) Intrahepatic bile duct dilation (Acute) Common bile duct dilatation (Acute) Abdominal pain (Acute) Iatrogenic hypocalcemia (Acute) Multiple endocrine neoplasia type I (Chronic) Chronic constipation (Chronic) Primary hyperparathyroidism (Chronic) Depression (Chronic) Hypocalcemia (Chronic) Hypomagnesemia (Chronic) Depression (Chronic) Suicidal ideation (Acute) Elevated parathyroid hormone (Acute) Family history of coronary arteriosclerosis (Chronic) Father of DC at 50, mother had DC at 42 Severe anxiety with panic (Acute) Cellulitis (Acute) Medical History Anxiety Depression Family history of multiple endocrine neoplasia, type 1 Hyperlipidemia Hypocalcemia PTSD (post-traumatic stress disorder) Surgical History H/O parathyroidectomy Family History Mother Anxiety Asthma Depression Sister Anxiety Depression Father Cancer lung & stomach Depression Diabetes Hypertension MEN 1 (multiple endocrine neoplasia) Social History Smoking/Tobacco Use Status: Never Smoking risk assessment performed?: Yes Alcohol Intake: never Drug 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 Adopted: No Caregiver/Support person: No Foster care: No Household members: none Housing: house Number of Children: 0 Communication Needs: None Education Level: high school Do you need help understanding health information?: Never 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 and animals: Yes (Ally) Pets and animals: dog(s) Sexually active: No Do you think of yourself as: straight/heterosexual Current gender identity: male What is your relationship status?: How often do you talk on the phone with friends or family?: twice per week How often do you get together with friends or relatives?: never Do you belong to any clubs or organized social groups?: no Panel score (0-1 are the most socially isolated patients): 0 What type of physical activity do you participate in: walking Duration: 15-30 minutes/day Frequency: 5-6 times per week Maryam/Baptism: Anabaptist Special maryam needs: No Seatbelt use: always Helmet use: Yes Helmet use: always Drive 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 3.ENT: Atraumatic external nose and ears. Moist MM. Neck: Symmetric, trachea midline, No thyromegaly. 4.CVS: +S1/S2, No murmurs or gallops. Peripheral pulses 2+ and equal in all extremities. Brisk capillary refill in all extremities. 5.RESP: Unlabored respiratory effort. Clear to auscultation bilaterally. No wheezes rales or rhonchi 6.GI: Soft, Nontender/Nondistended, No hepatosplenomegaly. No guarding or rebound. 7.MSK: Normocephalic/Atraumatic, Extremities w/o deformity or ttp No cyanosis or clubbing, Normal movement of all extremities. There are 2 small bruises noted where he had his most recent IV sites on his left arm, 1 at the AC, and 1 at the mid forearm on the ventral aspect. Minimal tenderness. No swelling, redness or edema. No asymmetric warmth. Bedside ultrasound was performed from the wrist all the way up to the axillary region and all vessels/veins are compressible without any evidence of clot 8.Skin: Warm, Dry. No rashes or lesions. 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 Sensation grossly intact, no focal neurologic deficits. 10.Psych: (AAO) x3. Appropriate mood and affect Course Vital Signs Vital signs: Vital Signs Temperature 36.7 C 07/17/22 04:42 Pulse 100 H 07/17/22 04:42 Respiratory Rate 20 07/17/22 04:42 Blood Pressure 118/91 H 07/17/22 04:42 Pulse Oximetry 98 07/17/22 04:42 Temperature 36.7 C 07/17/22 04:42 Temperature Source Oral 07/17/22 04:42 Pulse 100 H 07/17/22 04:42 Respiratory Rate 20 07/17/22 04:42 Respiratory Effort Non-Labored 07/17/22 04:48 Respiratory Depth Normal 07/17/22 04:48 Respiratory Pattern Normal 07/17/22 04:48 Blood Pressure 118/91 H 07/17/22 04:42 Blood Pressure Position Sitting 07/17/22 04:42 Pulse Oximetry 98 07/17/22 04:42 Oxygen Delivery Method Room Air 07/17/22 04:42 Oxygen Flow Rate 0 07/17/22 04:42 Pain Level 7 07/17/22 04:42
[2022-07-17] MEDS: Acetaminophen 500 MG TAB (05:06)
[2022-07-17] MEDS: Ibuprofen 400 MG TAB (05:07)
== END 2022-07-17 05:02 | disposition home or self-care (01) ==
PROVIDERS: Emergency Provider Student in an Organized Health Care Education/Training Program; PCP Family Medicine
DX: I80.8 Phlebitis and thrombophlebitis of other sites (principal)
CPT/HCPCS: 99282; 99283

== ENCOUNTER 2022-07-17 08:12 | Emergency (ER) | payer OTHER, SELFPAY ==
[2022-07-17 08:19] VITALS: BP 124/87; PULSE 110; RESP 20; TEMP 36.9; O2SAT 98
--- NOTE | 2022-07-17 08:30 | RT.EKG_ITS ---
APPROVED REPORT Exam: Resting ECG Reason for Exam: chest pain Patient Location: E HR:116 bpm ECG Measurements Heart Rate 116 AXIS HI 167 P 63 QRSd 97 QRS 77 QT 321 T -2 QTc 447 Conclusion Sinus tachycardia...rate> 99. Sinus. Normal axis. No STEMI. I have reviewed and interpreted ECG and agree with software generated interpretation.
--- NOTE | 2022-07-17 08:45 | DI.RAD_ITS ---
Exam(s) XR PORTABLE CHEST AP EXAM: XR PORTABLE CHEST AP CLINICAL HISTORY: chest pain TECHNIQUE: 2D digital imaging was performed. COMPARISON: CT CT CHEST PE CTA from 06/28/2022 FINDINGS: LUNGS: Clear. No pleural abnormality seen. HEART: Normal size. AORTA: Normal diameter. BONES: Unremarkable for age. Soft tissues: Unremarkable. IMPRESSION: No acute findings. DATA REPOSITORY: RADIATION DOSE DELIVERED:
[2022-07-17] MEDS: Lactated Ringers 1,000 ML 1000 ML IV (09:04)
[2022-07-17] MEDS: Ketorolac 15 MG/ML VIAL IVP (09:04)
[2022-07-17] MEDS: LORazepam 1 MG TAB PO ×2 (09:05→10:42)
[2022-07-17 09:13] LABS: Abs Immature Grans 0.05 10^3/uL (0.0-0.06); Absolute Basophil Count 0.08 10^3/uL (0.0-0.2); Absolute Eosinophil Count 0.36 10^3/uL (0.0-0.7); Absolute Lymphocyte Count 3.97 10^3/uL (1.2-3.4); Absolute Monocyte Count 1.22 10^3/uL (0.1-0.8); Absolute Neutrophil Count 6.88 10^3/uL (1.2-6.7); Basophils % 0.6; Eosinophils % 2.9; HGB 12.3 g/dL (13.5-17.5); Immature Grans % 0.4; Lymphocytes % 31.6; MCH 30.8 pg (27.0-33.0); MCHC 33.2 % (32.0-36.0); MCV 93 fL (80-95); MPV 10.4 fL (8.0-11.0); Monocytes % 9.7; Neutrophils % 54.8; Platelet Count 373 10^3/uL (130-400); RDW-SD 40.5 fL; WBC 12.55 10^3/uL (4.4-10.8)
[2022-07-17 09:31] LABS: ALT 47 U/L (16-63); AST 26 U/L (15-37); Albumin 3.9 g/dL (3.4-5.0); Alkaline Phosphatase 102 U/L (46-116); Anion Gap 7.3 mmol/L (3-11); BUN 20 mg/dL (7-18); Bilirubin, Total 0.2 mg/dL (0.2-1.0); CO2 32.7 mmol/L (21.0-32.0); CREATININE 1.6 mg/dL (0.70-1.30); Calcium 9.5 mg/dL (8.5-10.1); Chloride 100 mmol/L (98-107); Creatine Kinase 104 U/L (39-308); Estimated GFR 59.82 (mL/min/1.73m2); Glucose 103 mg/dL (74-106); Lipase 33 U/L (16-77); Magnesium 1.6 mg/dL (1.8-2.4); Potassium 3.8 mmol/L (3.5-5.1); Sodium 140 mmol/L (136-145); Total Protein 7.8 g/dL (6.4-8.2)
[2022-07-17 09:51] LABS: COVID-19 PCR Negative (Negative); Influenza A PCR Negative (Negative); Influenza B PCR Negative (Negative); RSV PCR Negative (Negative); Source Nasopharynx
--- NOTE | 2022-07-17 10:23 | W.ED.GENAD ---
Discharge Plan Disposition Patient Disposition: Home Condition: Stable Discharge Details Clinical Impression: Hypomagnesemia, Back pain Primary Care Provider: Brendon Vivar ED Provider: Luh Tsai Home Meds and New Rx's Prescriptions: New magnesium gluconate 27 mg magnesium (500 mg) tablet 27 mg PO BID Qty: 30 0RF Continued cyclobenzaprine 10 mg tablet 10 mg PO BID Qty: 180 3RF trazodone 100 mg tablet 100 mg PO HS Qty: 90 3RF lorazepam [Ativan] 1 mg tablet 1 mg PO TID PRN (Reason: anxiety) Qty: 42 0RF acetaminophen 325 mg capsule 650 mg PO Q6H PRN polyethylene glycol 3350 [Miralax] 17 gram powder in packet 17 g PO DAILY naloxegol 12.5 mg tablet 12.5 mg PO QAM Qty: 60 0RF Rx Instructions: must be taken on empty stomach; no food 1 hr after or 2-3 hrs before dose magnesium gluconate 27 mg magnesium (500 mg) tablet 1,000 mg PO TID Qty: 90 3RF methadone 10 mg/5 mL solution 110 mg PO QAM calcium carbonate [Tums] 200 mg calcium (500 mg) tablet,chewable 1,000 mg PO BID Qty: 0 0RF Hold Instructions: Resume on 06/15/22. calcitriol 0.5 mcg capsule 0.5 mcg PO BID Qty: 360 3RF Hold Instructions: Resume on 06/15/22. fluoxetine 20 mg capsule 60 mg PO DAILY Qty: 270 3RF gabapentin 800 mg tablet 800 mg PO TID Qty: 270 2RF gabapentin 600 mg tablet 800 mg PO TID clindamycin HCl 150 mg capsule 450 mg PO TID Qty: 90 0RF doxycycline hyclate 100 mg Capsule 100 mg PO BID potassium chloride [K-Tab] 20 mEq tablet extended release 20 meq PO DAILY Qty: 7 0RF lorazepam 1 mg tablet 1 mg PO BID PRN (Reason: anxiety) Qty: 10 0RF Discharge Instructions Instructions: Hypomagnesemia (ED), Back Pain (ED) Additional Instructions: Take the magnesium as prescribed You have a single dose of Ativan for later today if you need it call your doctor for another prescription Please return earlier should you have new or worsening complaints Recheck in 24 to 48 hours recommended with your doctor Referrals: Myrter,Brendon, DO [Primary Care Provider] - 1 day Medical Decision Making This 26-year-old gentleman presents with back and abdominal pain, similar to patient's prior presentations I did review his prior CT of his abdomen and pelvis approximately a month ago that did not show acute abnormality, he also had a CT of his chest performed a week or so ago that did not show acute abnormality Chest x-ray per radiology interpretation my review is within normal limits Diagnostic labs appear baseline for patient, creatinine 1.6 which does not appear to be acute CPK negative Fluid negative Denies any urinary symptoms Magnesium is low, patient states that he ran out of his magnesium 4 days ago, magnesium 1.6 Given magnesium for home, will start today Patient reports symptomatic improvement, he thinks he may have had an anxiety attack He is given a single dose of Ativan for home and encouraged to call For refill of his Ativan prescription He denies any suicidal or homicidal ideation I think he stable for discharge home at this time Return precautions reviewed and patient expressed understanding Medical Records Medical records reviewed: Yes I reviewed the patient's medical records. Lab Data Lab results reviewed: Yes I reviewed the patient's lab results. HPI General Date/Time Provider Initiated Documentation: 07/17/22 08:36. HPI Narrative: This 26-year-old gentleman known to us Who presents with abdominal pain and back pain. He states that he has had this numerous times in the past but was worse today felt like he might be having an anxiety attack which is why he presents. He did receive his dose of methadone prior to arrival in the emergency department does not feel it has helped his pain. He denies any known injuries. He has begun a new workout regimen but has not been for 2 days per patient. He denies any calf pain or swelling. No history of coagulopathy. He denies any fever or chills although he feels like he might have broke with patient. Denies any rashes or lesions. Denies any suicidal or homicidal ideation Related Data Home Medications Medication Instructions Recorded Confirmed methadone 10 mg/5 mL oral solution 110 mg PO QAM 11/16/21 07/10/22 cyclobenzaprine 10 mg tablet 10 mg PO BID #180 tabs 04/19/22 07/10/22 lorazepam 1 mg tablet (Ativan) 1 mg PO TID PRN anxiety #42 tabs 05/13/22 07/10/22 trazodone 100 mg tablet 100 mg PO HS #90 tabs 05/13/22 07/10/22 gabapentin 600 mg tablet 800 mg PO TID 06/04/22 07/10/22 acetaminophen 325 mg capsule 650 mg PO Q6H PRN 06/07/22 07/10/22 naloxegol 12.5 mg tablet 12.5 mg PO QAM #60 tabs 06/07/22 07/10/22 polyethylene glycol 3350 17 gram 17 g PO DAILY 06/07/22 07/10/22 oral powder packet (Miralax) calcitriol 0.5 mcg capsule 0.5 mcg PO BID #360 caps 06/14/22 07/10/22 calcium carbonate 200 mg calcium 1,000 mg PO BID #0 tabs 06/14/22 07/10/22 (500 mg) chewable tablet (Tums) clindamycin HCl 150 mg capsule 450 mg PO TID #90 caps 06/20/22 07/10/22 magnesium gluconate 27 mg 1,000 mg PO TID #90 tabs 06/21/22 07/10/22 magnesium (500 mg) tablet doxycycline hyclate 100 mg capsule 100 mg PO BID 06/23/22 07/10/22 potassium chloride 20 mEq 20 meq PO DAILY #7 tabs 07/04/22 07/10/22 tablet,extended release (K-Tab) lorazepam 1 mg tablet 1 mg PO BID PRN anxiety #10 tabs 07/10/22 07/10/22 fluoxetine 20 mg capsule 60 mg PO DAILY #270 caps 07/16/22 gabapentin 800 mg tablet 800 mg PO TID #270 tabs 07/16/22 magnesium gluconate 27 mg 27 mg PO BID #30 tabs 07/17/22 magnesium (500 mg) tablet Previous Rx's Medication Instructions Recorded cyclobenzaprine 10 mg tablet 10 mg PO BID #180 tabs 04/19/22 lorazepam 1 mg tablet (Ativan) 1 mg PO TID PRN anxiety #42 tabs 05/13/22 trazodone 100 mg tablet 100 mg PO HS #90 tabs 05/13/22 naloxegol 12.5 mg tablet 12.5 mg PO QAM #60 tabs 06/07/22 calcitriol 0.5 mcg capsule 0.5 mcg PO BID #360 caps 06/14/22 calcium carbonate 200 mg calcium 1,000 mg PO BID #0 tabs 06/14/22 (500 mg) chewable tablet (Tums) clindamycin HCl 150 mg capsule 450 mg PO TID #90 caps 06/20/22 magnesium gluconate 27 mg 1,000 mg PO TID #90 tabs 06/21/22 magnesium (500 mg) tablet potassium chloride 20 mEq 20 meq PO DAILY #7 tabs 07/04/22 tablet,extended release (K-Tab) lorazepam 1 mg tablet 1 mg PO BID PRN anxiety #10 tabs 07/10/22 fluoxetine 20 mg capsule 60 mg PO DAILY #270 caps 07/16/22 gabapentin 800 mg tablet 800 mg PO TID #270 tabs 07/16/22 magnesium gluconate 27 mg 27 mg PO BID #30 tabs 07/17/22 magnesium (500 mg) tablet Allergies Allergy/AdvReac Type Severity Reaction Status Date / Time amoxicillin Allergy Intermediate Nausea Verified 07/10/22 16:36 codeine Allergy Intermediate Verified 07/10/22 16:36 General Stated Complaint: Abd Prob ADRIANA: 3 PFSH All Active Problems (Updated 07/17/22 @ 10:25 by ANDREW Arriaga) Pain, dental (Acute) Chest pain (Acute) Anxiety (Chronic) Dyspnea (Acute) Heart palpitations (Acute) Acute hypokalemia (Acute) Lesion of tongue (Acute) Tingling (Acute) Hypomagnesemia (Acute) Phlebitis (Acute) Back pain (Acute) Pain, dental (Acute) Odontalgia (Acute) Pain, dental (Acute) Medication reaction (Acute) Therapeutic opioid induced constipation (Acute) Sphincter of Oddi dysfunction (Acute) Abnormal CT scan, kidney (Acute) Intrahepatic bile duct dilation (Acute) Common bile duct dilatation (Acute) Abdominal pain (Acute) Iatrogenic hypocalcemia (Acute) Multiple endocrine neoplasia type I (Chronic) Chronic constipation (Chronic) Primary hyperparathyroidism (Chronic) Depression (Chronic) Hypocalcemia (Chronic) Hypomagnesemia (Chronic) Depression (Chronic) Suicidal ideation (Acute) Elevated parathyroid hormone (Acute) Family history of coronary arteriosclerosis (Chronic) Father of [place] at 50, mother had [place] at 42 Severe anxiety with panic (Acute) Cellulitis (Acute) Medical History Anxiety Depression Family history of multiple endocrine neoplasia, type 1 Hyperlipidemia Hypocalcemia PTSD (post-traumatic stress disorder) Surgical History H/O parathyroidectomy Family History Mother Anxiety Asthma Depression Sister Anxiety Depression Father Cancer lung & stomach Depression Diabetes Hypertension MEN 1 (multiple endocrine neoplasia) Social History Smoking/Tobacco Use Status: Never Smoking risk assessment performed?: Yes Alcohol Intake: never Drug 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 Adopted: No Caregiver/Support person: No Foster care: No Household members: none Housing: house Number of Children: 0 Communication Needs: None Education Level: high school Do you need help understanding health information?: Never 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 and animals: Yes (Ally) Pets and animals: dog(s) Sexually active: No Do you think of yourself as: straight/heterosexual Current gender identity: male What is your relationship status?: How often do you talk on the phone with friends or family?: twice per week How often do you get together with friends or relatives?: never Do you belong to any clubs or organized social groups?: no Panel score (0-1 are the most socially isolated patients): 0 What type of physical activity do you participate in: walking Duration: 15-30 minutes/day Frequency: 5-6 times per week Maryam/Hoahaoism: Sabianist Special maryam needs: No Seatbelt use: always Helmet use: Yes Helmet use: always Drive 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 straight truck 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 Exam Const General: cooperative, comfortable and no acute distress Orientation: alert and oriented x3 Resp Effort & Inspection: normal respiratory effort Auscultation: clear to auscultation bilaterally Cardio Rate: regular rate Rhythm: regular rhythm Heart Sounds: no murmurs GI Inspection: normal to inspection Skin General skin exam: no rashes or lesions noted Neuro General: patient alert and patient oriented x3 Extrem General: normal to inspection Other: Distal pulses intact Course Vital Signs Vital signs: Vital Signs Temperature 36.9 C 07/17/22 08:19 Pulse 110 H 07/17/22 08:19 Respiratory Rate 20 07/17/22 08:19 Blood Pressure 124/87 07/17/22 08:19 Pulse Oximetry 98 07/17/22 08:19 Temperature 36.9 C 07/17/22 08:19 Temperature Source Oral 07/17/22 08:19 Pulse 110 H 07/17/22 08:19 Respiratory Rate 20 07/17/22 08:19 Respiratory Effort Non-Labored 07/17/22 08:21 Blood Pressure 124/87 07/17/22 08:19 Pulse Oximetry 98 07/17/22 08:19 Oxygen Delivery Method Room Air 07/17/22 08:19 Oxygen Flow Rate 0 07/17/22 08:19 Lab/Test Results Lab/Test Results: Laboratory Tests Range/Units 07/17/22 07/17/22 07/17/22 08:56 08:56 08:56 WBC (4.4-10.8) 10^3/uL 12.55 H RBC (4.36-5.78) 10^6/uL 4.00 L Hgb (13.5-17.5) g/dL 12.3 L Hct (40.0-50.0) % 37.0 L MCV (80-95) fL 93 MCH (27.0-33.0) pg 30.8 MCHC (32.0-36.0) % 33.2 RDW (11.8-14.1) % 12.0 Plt Count (130-400) 10^3/uL 373 MPV (8.0-11.0) fL 10.4 Immature Gran % 0.4 Neutrophils % 54.8 Lymphocytes % 31.6 Monocytes % 9.7 Eosinophils % 2.9 Basophils % 0.6 Nucleated RBC % (0.0-0.3) % 0.0 Absolute Neutrophils (1.2-6.7) 10^3/uL 6.88 H Absolute Lymphocytes (1.2-3.4) 10^3/uL 3.97 H Absolute Monocytes (0.1-0.8) 10^3/uL 1.22 H Absolute Eosinophils (0.0-0.7) 10^3/uL 0.36 Absolute Basophils (0.0-0.2) 10^3/uL 0.08 Sodium (136-145) mmol/L 140 Potassium (3.5-5.1) mmol/L 3.8 Chloride (98-107) mmol/L 100 Carbon Dioxide (21.0-32.0) mmol/L 32.7 H Anion Gap (3-11) mmol/L 7.3 BUN (7-18) mg/dL 20 H Creatinine (0.70-1.30) mg/dL 1.6 H Est GFR (CKD-EPI 2020) (mL/min/1.73m2) 59.82 Glucose (74-106) mg/dL 103 Calcium (8.5-10.1) mg/dL 9.5 Magnesium (1.8-2.4) mg/dL 1.6 L Total Bilirubin (0.2-1.0) mg/dL 0.2 AST (15-37) U/L 26 ALT (16-63) U/L 47 Alkaline Phosphatase (46-116) U/L 102 Creatine Kinase (39-308) U/L 104 Total Protein (6.4-8.2) g/dL 7.8 Albumin (3.4-5.0) g/dL 3.9 Lipase (16-77) U/L 33 COVID-19 Source Nasopharynx SARS-CoV-2 (PCR) (Negative) Negative Influenza Type A (PCR) (Negative) Negative Influenza Type B (PCR) (Negative) Negative RSV (PCR) (Negative) Negative
[2022-07-17 10:42] VITALS: PULSE 99; RESP 18; O2SAT 99
== END 2022-07-17 10:43 | disposition home or self-care (01) ==
PROVIDERS: Emergency Provider Physician Assistant; PCP Family Medicine
DX: E83.42 Hypomagnesemia (principal); M54.9 Dorsalgia, unspecified; Z20.822 Contact with and (suspected) exposure to COVID-19
CPT/HCPCS: 36415; 80053; 82550; 83690; 87637; 93005; 96361; 96374; 99284; 71045; 83735; 85025; 93010; 99285; J1885

== ENCOUNTER 2022-07-18 21:01 | Emergency (ER) | payer OTHER, SELFPAY ==
[2022-07-18 21:05] VITALS: BP 155/94; PULSE 124; RESP 18; TEMP 37.1; O2SAT 97
--- NOTE | 2022-07-18 21:49 | W.ED.GENAD ---
Discharge Plan Disposition Patient Disposition: Home Condition: Stable Discharge Details Clinical Impression: Hypomagnesemia, Headache Primary Care Provider: Brendon Vivar ED Provider: Antoinette Templeton Home Meds and New Rx's Prescriptions: Continued cyclobenzaprine 10 mg tablet 10 mg PO BID Qty: 180 3RF trazodone 100 mg tablet 100 mg PO HS Qty: 90 3RF acetaminophen 325 mg capsule 650 mg PO Q6H PRN polyethylene glycol 3350 [Miralax] 17 gram powder in packet 17 g PO DAILY naloxegol 12.5 mg tablet 12.5 mg PO QAM Qty: 60 0RF Rx Instructions: must be taken on empty stomach; no food 1 hr after or 2-3 hrs before dose magnesium gluconate 27 mg magnesium (500 mg) tablet 1,000 mg PO TID Qty: 90 3RF clonazepam 1 mg tablet 1 mg PO BID Qty: 14 0RF fluoxetine 20 mg capsule 60 mg PO DAILY Qty: 270 3RF gabapentin 800 mg tablet 800 mg PO TID Qty: 270 2RF methadone 10 mg/5 mL solution 110 mg PO QAM calcitriol 0.5 mcg capsule 0.5 mcg PO BID Qty: 360 3RF Hold Instructions: Resume on 06/15/22. gabapentin 600 mg tablet 800 mg PO TID potassium chloride [K-Tab] 20 mEq tablet extended release 20 meq PO DAILY Qty: 7 0RF magnesium gluconate 27 mg magnesium (500 mg) tablet 27 mg PO BID Qty: 30 0RF No Action calcium carbonate [Tums] 200 mg calcium (500 mg) tablet,chewable 1,000 mg PO BID Qty: 0 0RF Hold Instructions: Resume on 06/15/22. Discharge Instructions Instructions: Hypomagnesemia (ED), General Headache (ED) Additional Instructions: Please take the magnesium supplement in the morning. You were given 1 here and some potassium. Please increase foods with potassium and magnesium over the next few days. Including green leafy vegetables, nuts, whole grains. Please get your prescriptions filled as prescribed. Take them as directed. Follow up with primary care provider in 3-5 days. Increase oral fluids. Please take Tylenol or Ibuprofen with food every 4-6 hours as needed for pain and swelling. Referrals: Brendon Vivar DO [Primary Care Provider] - 5 days Medical Decision Making 26-year-old male who is very well-known to the department with a past medical history of hyperparathyroidism and parathyroidectomy, hypomagnesemia and hypocalcemia, hypercalcemia, anxiety depression PTSD presents to the ER with a chief complaint of severe frontal headache which began approximately 30 minutes prior to arrival. He did take a gram of Tylenol with little to no relief. He reports that he was unable to fill his magnesium that he was prescribed yesterday. He did see his PCP today who prescribed clonazepam which he also has not filled yet.. He denies any chest pain shortness of breath or any other associated symptoms. He is slightly tachycardic with a heart rate of 124 upon arrival and is complaining of anxiety. CBC is largely at baseline, potassium is slightly low at 3.4, magnesium 1.6 which was the same as yesterday. I did give 20 mEq of liquid potassium p.o. and 4 mg magnesium oxide. Tablet of magnesium oxide to go. Calcium 8.6. Patient was given a milligram of Ativan, 500 cc bolus of normal saline here. Patient was feeling improved prior to discharge. Scheduled to follow-up with PCP. and get his prescriptions filled. This text was generated using [employer] dictation system, please disregard any oddities of phrase or misspellings. Medical Records Medical records reviewed: Yes I reviewed the patient's medical records. Lab Data Lab results reviewed: Yes I reviewed the patient's lab results. Labs: Laboratory Tests Range/Units 07/18/22 07/18/22 22:05 22:05 WBC (4.4-10.8) 10^3/uL 10.86 H RBC (4.36-5.78) 10^6/uL 3.80 L Hgb (13.5-17.5) g/dL 11.7 L Hct (40.0-50.0) % 35.0 L MCV (80-95) fL 92 MCH (27.0-33.0) pg 30.8 MCHC (32.0-36.0) % 33.4 RDW (11.8-14.1) % 12.0 Plt Count (130-400) 10^3/uL 330 MPV (8.0-11.0) fL 10.3 Immature Gran % 0.4 Neutrophils % 59.9 Lymphocytes % 26.1 Monocytes % 9.6 Eosinophils % 3.4 Basophils % 0.6 Nucleated RBC % (0.0-0.3) % 0.0 Absolute Neutrophils (1.2-6.7) 10^3/uL 6.51 Absolute Lymphocytes (1.2-3.4) 10^3/uL 2.83 Absolute Monocytes (0.1-0.8) 10^3/uL 1.04 H Absolute Eosinophils (0.0-0.7) 10^3/uL 0.37 Absolute Basophils (0.0-0.2) 10^3/uL 0.07 Sodium (136-145) mmol/L 141 Potassium (3.5-5.1) mmol/L 3.4 L Chloride (98-107) mmol/L 104 Carbon Dioxide (21.0-32.0) mmol/L 32.6 H Anion Gap (3-11) mmol/L 4.4 BUN (7-18) mg/dL 12 Creatinine (0.70-1.30) mg/dL 1.3 Est GFR (CKD-EPI 2020) (mL/min/1.73m2) 76.74 Glucose (74-106) mg/dL 96 Calcium (8.5-10.1) mg/dL 8.6 Magnesium (1.8-2.4) mg/dL 1.6 L Total Bilirubin (0.2-1.0) mg/dL 0.2 AST (15-37) U/L 21 ALT (16-63) U/L 36 Alkaline Phosphatase (46-116) U/L 92 Total Protein (6.4-8.2) g/dL 7.5 Albumin (3.4-5.0) g/dL 3.5 HPI General Mode of arrival: ambulatory. Date/Time Provider Initiated Documentation: 07/18/22 21:04. Limitations to Documentation: no limitations. Information obtained by: patient, RN notes reviewed and old records reviewed. HPI Narrative: 26-year-old male who is very well-known to the department with a past medical history of hyperparathyroidism and parathyroidectomy, hypomagnesemia and hypocalcemia, hypercalcemia, anxiety depression PTSD presents to the ER with a chief complaint of severe frontal headache which began approximately 30 minutes prior to arrival. He did take a gram of Tylenol with little to no relief. He reports that he was unable to fill his magnesium that he was prescribed yesterday. He did see his PCP today who prescribed clonazepam which he also has not filled yet.. He denies any chest pain shortness of breath or any other associated symptoms. He is slightly tachycardic with a heart rate of 124 upon arrival and is complaining of anxiety. He is alert and oriented x3 no focal neurodeficits noted. Related Data Home Medications Medication Instructions Recorded Confirmed methadone 10 mg/5 mL oral solution 110 mg PO QAM 11/16/21 07/10/22 cyclobenzaprine 10 mg tablet 10 mg PO BID #180 tabs 04/19/22 07/10/22 trazodone 100 mg tablet 100 mg PO HS #90 tabs 05/13/22 07/10/22 gabapentin 600 mg tablet 800 mg PO TID 06/04/22 07/10/22 acetaminophen 325 mg capsule 650 mg PO Q6H PRN 06/07/22 07/10/22 naloxegol 12.5 mg tablet 12.5 mg PO QAM #60 tabs 06/07/22 07/10/22 polyethylene glycol 3350 17 gram 17 g PO DAILY 06/07/22 07/10/22 oral powder packet (Miralax) calcitriol 0.5 mcg capsule 0.5 mcg PO BID #360 caps 06/14/22 07/10/22 calcium carbonate 200 mg calcium 1,000 mg PO BID #0 tabs 06/14/22 07/10/22 (500 mg) chewable tablet (Tums) magnesium gluconate 27 mg 1,000 mg PO TID #90 tabs 06/21/22 07/10/22 magnesium (500 mg) tablet potassium chloride 20 mEq 20 meq PO DAILY #7 tabs 07/04/22 07/10/22 tablet,extended release (K-Tab) magnesium gluconate 27 mg 27 mg PO BID #30 tabs 07/17/22 magnesium (500 mg) tablet clonazepam 1 mg tablet 1 mg PO BID #14 tabs 07/18/22 07/18/22 fluoxetine 20 mg capsule 60 mg PO DAILY #270 caps 07/18/22 07/18/22 gabapentin 800 mg tablet 800 mg PO TID #270 tabs 07/18/22 07/18/22 Previous Rx's Medication Instructions Recorded cyclobenzaprine 10 mg tablet 10 mg PO BID #180 tabs 04/19/22 trazodone 100 mg tablet 100 mg PO HS #90 tabs 05/13/22 naloxegol 12.5 mg tablet 12.5 mg PO QAM #60 tabs 06/07/22 calcitriol 0.5 mcg capsule 0.5 mcg PO BID #360 caps 06/14/22 calcium carbonate 200 mg calcium 1,000 mg PO BID #0 tabs 06/14/22 (500 mg) chewable tablet (Tums) magnesium gluconate 27 mg 1,000 mg PO TID #90 tabs 06/21/22 magnesium (500 mg) tablet potassium chloride 20 mEq 20 meq PO DAILY #7 tabs 07/04/22 tablet,extended release (K-Tab) magnesium gluconate 27 mg 27 mg PO BID #30 tabs 07/17/22 magnesium (500 mg) tablet clonazepam 1 mg tablet 1 mg PO BID #14 tabs 07/18/22 fluoxetine 20 mg capsule 60 mg PO DAILY #270 caps 07/18/22 gabapentin 800 mg tablet 800 mg PO TID #270 tabs 07/18/22 Allergies Allergy/AdvReac Type Severity Reaction Status Date / Time amoxicillin Allergy Intermediate Nausea Verified 07/18/22 15:24 codeine Allergy Intermediate Verified 07/18/22 15:24 General Stated Complaint: Headache ADRIANA: 3 Review of Systems All systems reviewed & are unremarkable except as noted in HPI and below Constitutional Constitutional: Reports headache(s) ENT Ears, Nose, Mouth, and Throat: Reports headache(s) Cardiovascular Cardiovascular: Reports as per HPI, Denies chest pain and Reports rapid heart rate Neurologic Neurologic: Reports headache(s) PFSH All Active Problems (Updated 07/18/22 @ 22:58 by Antoinette Templeton NP) Headache (Acute) Pulmonary nodule 1 cm or greater in diameter (Acute) Pain, dental (Acute) Chest pain (Acute) Anxiety (Chronic) Dyspnea (Acute) Heart palpitations (Acute) Acute hypokalemia (Acute) Lesion of tongue (Acute) Tingling (Acute) Hypomagnesemia (Acute) Phlebitis (Acute) Back pain (Acute) Pain, dental (Acute) Odontalgia (Acute) Pain, dental (Acute) Medication reaction (Acute) Therapeutic opioid induced constipation (Acute) Sphincter of Oddi dysfunction (Acute) Abnormal CT scan, kidney (Acute) Intrahepatic bile duct dilation (Acute) Common bile duct dilatation (Acute) Abdominal pain (Acute) Iatrogenic hypocalcemia (Acute) Multiple endocrine neoplasia type I (Chronic) Chronic constipation (Chronic) Primary hyperparathyroidism (Chronic) Depression (Chronic) Hypocalcemia (Chronic) Hypomagnesemia (Chronic) Depression (Chronic) Suicidal ideation (Acute) Elevated parathyroid hormone (Acute) Family history of coronary arteriosclerosis (Chronic) Father of OK at 50, mother had OK at 42 Severe anxiety with panic (Acute) Cellulitis (Acute) Medical History Anxiety Depression Family history of multiple endocrine neoplasia, type 1 Hyperlipidemia Hypocalcemia PTSD (post-traumatic stress disorder) Surgical History H/O parathyroidectomy Family History Mother Anxiety Asthma Depression Sister Anxiety Depression Father Cancer lung & stomach Depression Diabetes Hypertension MEN 1 (multiple endocrine neoplasia) Social History Smoking/Tobacco Use Status: Never Smoking risk assessment performed?: Yes Alcohol Intake: never Drug 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 Adopted: No Caregiver/Support person: No Foster care: No Household members: none Housing: house Number of Children: 0 Communication Needs: None Education Level: high school Do you need help understanding health information?: Never 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 and animals: Yes (Ally) Pets and animals: dog(s) Sexually active: No Do you think of yourself as: straight/heterosexual Current gender identity: male What is your relationship status?: How often do you talk on the phone with friends or family?: twice per week How often do you get together with friends or relatives?: never Do you belong to any clubs or organized social groups?: no Panel score (0-1 are the most socially isolated patients): 0 What type of physical activity do you participate in: walking Duration: 15-30 minutes/day Frequency: 5-6 times per week Maryam/Confucianist: Sabianist Special maryam needs: No Seatbelt use: always Helmet use: Yes Helmet use: always Drive 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 charter bus 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 Exam Narrative Exam Narrative: Constitutional: Alert and oriented x3. Appears stated age. Normal body habitus. Head: Normocephalic, no trauma. Eyes: Pupils PERRL, Red reflex noted, EOM's intact. Eyelids symmetrical without lesions, discharge, or swelling. ENT: Bilateral TM's WNL, External ear normal to inspection, no mastoid TTP, swelling, or erythema, Nasal turbinates WNL, no nasal discharge. Normal dentition, Posterior pharynx WNL, no exudate. Chest: Slightly tachycardic, normal S1, S2, distal pulses intact. Resp: Lungs clear to auscultation bilaterally, no wheezes, rales, or rhonchi. Abdomen: Soft, non-distended, Normoactive bowel sounds all 4 quads. Musculoskeletal: Normal gait, 5/5 strength to all four extremities. Skin: No suspicious rashes or lesions. Capillary refill less than 2 sec. Neurologic: Cranial nerves II-XII intact. Alert and oriented x 3. Motor: No deficits noted. Sensory: Intact bilaterally all 4 extremities. Reflexes: DTR's intact bilaterally.. Hematologic/Lymphatic: No ecchymosis, no lymphadenopathy. Course Vital Signs Vital signs: Vital Signs Temperature 37.1 C 07/18/22 21:05 Pulse 124 H 07/18/22 21:05 Respiratory Rate 18 07/18/22 21:05 Blood Pressure 155/94 H 07/18/22 21:05 Pulse Oximetry 97 07/18/22 21:05 Temperature 37.1 C 07/18/22 21:05 Temperature Source Oral 07/18/22 21:05 Pulse 124 H 07/18/22 21:05 Respiratory Rate 18 07/18/22 21:05 Respiratory Effort 07/18/22 21:11 Blood Pressure 155/94 H 07/18/22 21:05 Blood Pressure Position Sitting 07/18/22 21:05 Pulse Oximetry 97 07/18/22 21:05 Oxygen Delivery Method Room Air 07/18/22 21:05 Oxygen Flow Rate 0 07/18/22 21:05 Pain Level 8 07/18/22 21:05
[2022-07-18 22:15] LABS: Abs Immature Grans 0.04 10^3/uL (0.0-0.06); Absolute Eosinophil Count 0.37 10^3/uL (0.0-0.7); Absolute Lymphocyte Count 2.83 10^3/uL (1.2-3.4); Absolute Monocyte Count 1.04 10^3/uL (0.1-0.8); Basophils % 0.6; Eosinophils % 3.4; HGB 11.7 g/dL (13.5-17.5); Immature Grans % 0.4; Lymphocytes % 26.1; MCH 30.8 pg (27.0-33.0); MCHC 33.4 % (32.0-36.0); MCV 92 fL (80-95); MPV 10.3 fL (8.0-11.0); Monocytes % 9.6; Neutrophils % 59.9; Platelet Count 330 10^3/uL (130-400); RDW-SD 40.1 fL; WBC 10.86 10^3/uL (4.4-10.8)
[2022-07-18] MEDS: LORazepam 2 MG/ML VIAL 1 MG IVP (22:17)
[2022-07-18] MEDS: Normal Saline 500 ML IV (22:17)
[2022-07-18 22:19] LABS: Absolute Basophil Count 0.07 10^3/uL (0.0-0.2); Absolute Neutrophil Count 6.51 10^3/uL (1.2-6.7)
[2022-07-18 22:30] LABS: ALT 36 U/L (16-63); AST 21 U/L (15-37); Albumin 3.5 g/dL (3.4-5.0); Alkaline Phosphatase 92 U/L (46-116); Anion Gap 4.4 mmol/L (3-11); BUN 12 mg/dL (7-18); Bilirubin, Total 0.2 mg/dL (0.2-1.0); CO2 32.6 mmol/L (21.0-32.0); CREATININE 1.3 mg/dL (0.70-1.30); Calcium 8.6 mg/dL (8.5-10.1); Chloride 104 mmol/L (98-107); Estimated GFR 76.74 (mL/min/1.73m2); Glucose 96 mg/dL (74-106); Magnesium 1.6 mg/dL (1.8-2.4); Potassium 3.4 mmol/L (3.5-5.1); Sodium 141 mmol/L (136-145); Total Protein 7.5 g/dL (6.4-8.2)
[2022-07-18] MEDS: Magnesium Oxide 400 MG TAB PO ×2 (22:43→23:10)
[2022-07-18] MEDS: Potassium Chloride Liquid 20 MEQ PKT PO (22:43)
[2022-07-18 23:13] VITALS: BP 125/78; PULSE 118; RESP 22; TEMP 36.8; O2SAT 98
== END 2022-07-18 23:15 | disposition home or self-care (01) ==
PROVIDERS: Emergency Provider Registered Nurse Emergency; PCP Family Medicine
DX: R51.9 Headache, unspecified (principal); E83.42 Hypomagnesemia; R00.0 Tachycardia, unspecified; F41.9 Anxiety disorder, unspecified
CPT/HCPCS: 80053; 96361; 96374; 99284; 83735; 85025; J2060

== ENCOUNTER 2022-07-20 15:18 | Emergency (ER) | payer OTHER, SELFPAY ==
[2022-07-20 15:31] VITALS: BP 145/85; PULSE 81; TEMP 37.2; O2SAT 98
--- NOTE | 2022-07-20 15:38 | W.ED.GENAD ---
Discharge Plan Disposition Patient Disposition: Home Condition: Improving Discharge Details Clinical Impression: Medication reaction Primary Care Provider: Brendon Vivar ED Provider: Barrington Arciniega Home Meds and New Rx's Prescriptions: Continued cyclobenzaprine 10 mg tablet 10 mg PO BID Qty: 180 3RF trazodone 100 mg tablet 100 mg PO HS Qty: 90 3RF acetaminophen 325 mg capsule 650 mg PO Q6H PRN polyethylene glycol 3350 [Miralax] 17 gram powder in packet 17 g PO DAILY naloxegol 12.5 mg tablet 12.5 mg PO QAM Qty: 60 0RF Rx Instructions: must be taken on empty stomach; no food 1 hr after or 2-3 hrs before dose magnesium gluconate 27 mg magnesium (500 mg) tablet 1,000 mg PO TID Qty: 90 3RF clonazepam 1 mg tablet 1 mg PO BID Qty: 14 0RF fluoxetine 20 mg capsule 60 mg PO DAILY Qty: 270 3RF gabapentin 800 mg tablet 800 mg PO TID Qty: 270 2RF methadone 10 mg/5 mL solution 110 mg PO QAM calcium carbonate [Tums] 200 mg calcium (500 mg) tablet,chewable 1,000 mg PO BID Qty: 0 0RF Hold Instructions: Resume on 06/15/22. calcitriol 0.5 mcg capsule 0.5 mcg PO BID Qty: 360 3RF Hold Instructions: Resume on 06/15/22. gabapentin 600 mg tablet 800 mg PO TID potassium chloride [K-Tab] 20 mEq tablet extended release 20 meq PO DAILY Qty: 7 0RF magnesium gluconate 27 mg magnesium (500 mg) tablet 27 mg PO BID Qty: 30 0RF Discharge Instructions Additional Instructions: At this time you have been given a medical screening examination, no emergent process identified. You have also been evaluated by mental health, please follow their instructions. This very well may be a reaction to your new medication today. Please watch for new or worsening symptoms and return to the ER for any concerns. Please contact your primary care provider on Friday to discuss your ER visit, ongoing symptoms, need for outpatient reevaluation and potential change in your medication regimen. Medical Decision Making 26-year-old gentleman with a past medical history of anxiety, depression, PTSD, hyperparathyroidism, presents to the ER having taken his first dose of clonazepam today, discontinued his lorazepam, feels as though that he is having a reaction. States he took the medication roughly 2 hours ago, shortly after developed a head fog, increased anxiety, felt as though he was hearing whispering but denies any visual hallucinations. He could not make out any distinct voices. Denies SI or HI. Patient is requesting to speak with the mental health team. Clinically he appears well, nontoxic, neurologically intact, hemodynamically stable. I have a low suspicion that he will require emergent hospitalization, will not perform a COVID swab. Given he is currently no risk to himself or others will not initiate a interim care plan or CPSO. We will request a mental health evaluation. Mental health evaluation completed, please see their note. At this time he is not seeking voluntary placement, no indication for involuntary placement, feels as though they he can be discharged safely. Patient is comfortable with this plan. Standard discharge and return precautions were provided. Patient understands, is agreeable to this plan, and has no additional questions or concerns upon discharge. This documentation was generated using [employer] system, please disregard any oddities of phrase or misspellings. Medical Records Medical records reviewed: Yes I reviewed the patient's medical records. HPI General Mode of arrival: ambulatory. Date/Time Provider Initiated Documentation: 07/20/22 15:20. Limitations to Documentation: no limitations. Information obtained by: patient. HPI Narrative: This is a 26-year-old male with a past medical history of anxiety, depression, PTSD, palpitations, multiple endocrine neoplasm type I, hyperparathyroidism, presents to the ER stating that his medications were changed, he was taking lorazepam but this medication was not working, today took his first dose of the clonazepam about 2 hours ago, shortly after he felt as though his head was in a fog, had increased anxiety, felt scared, felt as though he was hearing people whispering, but could not make out any distinct words. He denies recent illness or trauma. Otherwise he has no concerns or complaints at this time. He denies SI or HI. Related Data Home Medications Medication Instructions Recorded Confirmed methadone 10 mg/5 mL oral solution 110 mg PO QAM 11/16/21 07/20/22 cyclobenzaprine 10 mg tablet 10 mg PO BID #180 tabs 04/19/22 07/20/22 trazodone 100 mg tablet 100 mg PO HS #90 tabs 05/13/22 07/20/22 gabapentin 600 mg tablet 800 mg PO TID 06/04/22 07/20/22 acetaminophen 325 mg capsule 650 mg PO Q6H PRN 06/07/22 07/20/22 naloxegol 12.5 mg tablet 12.5 mg PO QAM #60 tabs 06/07/22 07/20/22 polyethylene glycol 3350 17 gram 17 g PO DAILY 06/07/22 07/20/22 oral powder packet (Miralax) calcitriol 0.5 mcg capsule 0.5 mcg PO BID #360 caps 06/14/22 07/20/22 calcium carbonate 200 mg calcium 1,000 mg PO BID #0 tabs 06/14/22 07/20/22 (500 mg) chewable tablet (Tums) magnesium gluconate 27 mg 1,000 mg PO TID #90 tabs 06/21/22 07/20/22 magnesium (500 mg) tablet potassium chloride 20 mEq 20 meq PO DAILY #7 tabs 07/04/22 07/20/22 tablet,extended release (K-Tab) magnesium gluconate 27 mg 27 mg PO BID #30 tabs 07/17/22 07/20/22 magnesium (500 mg) tablet clonazepam 1 mg tablet 1 mg PO BID #14 tabs 07/18/22 07/20/22 fluoxetine 20 mg capsule 60 mg PO DAILY #270 caps 07/18/22 07/20/22 gabapentin 800 mg tablet 800 mg PO TID #270 tabs 07/18/22 07/20/22 Previous Rx's Medication Instructions Recorded cyclobenzaprine 10 mg tablet 10 mg PO BID #180 tabs 04/19/22 trazodone 100 mg tablet 100 mg PO HS #90 tabs 05/13/22 naloxegol 12.5 mg tablet 12.5 mg PO QAM #60 tabs 06/07/22 calcitriol 0.5 mcg capsule 0.5 mcg PO BID #360 caps 06/14/22 calcium carbonate 200 mg calcium 1,000 mg PO BID #0 tabs 06/14/22 (500 mg) chewable tablet (Tums) magnesium gluconate 27 mg 1,000 mg PO TID #90 tabs 06/21/22 magnesium (500 mg) tablet potassium chloride 20 mEq 20 meq PO DAILY #7 tabs 07/04/22 tablet,extended release (K-Tab) magnesium gluconate 27 mg 27 mg PO BID #30 tabs 07/17/22 magnesium (500 mg) tablet clonazepam 1 mg tablet 1 mg PO BID #14 tabs 07/18/22 fluoxetine 20 mg capsule 60 mg PO DAILY #270 caps 07/18/22 gabapentin 800 mg tablet 800 mg PO TID #270 tabs 07/18/22 Allergies Allergy/AdvReac Type Severity Reaction Status Date / Time codeine Allergy Intermediate Verified 07/20/22 15:56 amoxicillin AdvReac Intermediate Nausea Verified 07/20/22 15:56 General Stated Complaint: GenMedical ADRIANA: 3 Review of Systems Constitutional Constitutional: Denies fever(s) and Denies weakness Cardiovascular Cardiovascular: Denies chest pain and Denies dyspnea Respiratory Respiratory: Denies cough and Denies dyspnea Gastrointestinal Gastrointestinal: Denies abdominal pain, Denies nausea and Denies vomiting Integumentary/Breasts Skin/Breast: Denies rash Neurologic Neurologic: Denies weakness Psychiatric Psychiatric: Reports anxiety, Denies homicidal ideation and Denies suicidal ideation PFSH All Active Problems (Updated 07/20/22 @ 16:44 by ANDREW Chow) Headache (Acute) Medication reaction (Acute) Pulmonary nodule 1 cm or greater in diameter (Acute) Pain, dental (Acute) Chest pain (Acute) Anxiety (Chronic) Dyspnea (Acute) Heart palpitations (Acute) Acute hypokalemia (Acute) Lesion of tongue (Acute) Tingling (Acute) Hypomagnesemia (Acute) Phlebitis (Acute) Back pain (Acute) Pain, dental (Acute) Medication reaction (Acute) Therapeutic opioid induced constipation (Acute) Sphincter of Oddi dysfunction (Acute) Abnormal CT scan, kidney (Acute) Intrahepatic bile duct dilation (Acute) Common bile duct dilatation (Acute) Abdominal pain (Acute) Iatrogenic hypocalcemia (Acute) Multiple endocrine neoplasia type I (Chronic) Chronic constipation (Chronic) Primary hyperparathyroidism (Chronic) Depression (Chronic) Hypocalcemia (Chronic) Hypomagnesemia (Chronic) Depression (Chronic) Suicidal ideation (Acute) Elevated parathyroid hormone (Acute) Family history of coronary arteriosclerosis (Chronic) Father of MT at 50, mother had MT at 42 Severe anxiety with panic (Acute) Cellulitis (Acute) Medical History Anxiety Depression Family history of multiple endocrine neoplasia, type 1 Hyperlipidemia Hypocalcemia PTSD (post-traumatic stress disorder) Surgical History H/O parathyroidectomy Family History Mother Anxiety Asthma Depression Sister Anxiety Depression Father Cancer lung & stomach Depression Diabetes Hypertension MEN 1 (multiple endocrine neoplasia) Social History Smoking/Tobacco Use Status: Never Smoking risk assessment performed?: Yes Alcohol Intake: never Drug 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 Adopted: No Caregiver/Support person: No Foster care: No Household members: none Housing: house Number of Children: 0 Communication Needs: None Education Level: high school Do you need help understanding health information?: Never 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 and animals: Yes (Ally) Pets and animals: dog(s) Sexually active: No Do you think of yourself as: straight/heterosexual Current gender identity: male What is your relationship status?: How often do you talk on the phone with friends or family?: twice per week How often do you get together with friends or relatives?: never Do you belong to any clubs or organized social groups?: no Panel score (0-1 are the most socially isolated patients): 0 What type of physical activity do you participate in: walking Duration: 15-30 minutes/day Frequency: 5-6 times per week Maryam/Nondenominational: Yazidi Special maryam needs: No Seatbelt use: always Helmet use: Yes Helmet use: always Drive 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 over the road 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 Exam Const General: cooperative, healthy appearing, comfortable, no acute distress and anxious Orientation: alert, awake and oriented x3 HENMT Head: normal to inspection, normocephalic and atraumatic Face and sinus: normal facial exam Mouth: moist mucous membranes Eyes General: appearance normal, both eyes and all related structures Conjunctivae: conjunctivae normal Neck Neck: normal visual inspection, full ROM, no meningeal signs, trachea midline and supple Resp Effort & Inspection: normal respiratory effort and able to speak in complete sentences Auscultation: clear to auscultation bilaterally Cardio Rate: regular rate Rhythm: regular rhythm GI Palpation: soft, not firm, no guarding and nontender Back/Spine/Pelvis Back: No back tenderness Skin General skin exam: no rashes or lesions noted Neuro General: patient alert, patient awake, moves all extremities and no focal motor deficits Cognition: normal cognition Speech: speech normal Gait: normal gait Sensory Exam: no sensory deficits noted Extrem General: normal to inspection and full ROM Psych Appearance: grossly normal Mental Status: mental status grossly normal Speech and Movement: speech and movement normal Mood: anxious mood Affect: anxious affect Attitude: cooperative Thought Process: normal Thought Content: normal Insight: fair Judgment: fair Course Vital Signs Vital signs: Vital Signs Temperature 37.2 C 07/20/22 15:31 Pulse 81 07/20/22 15:31 Blood Pressure 145/85 H 07/20/22 15:31 Pulse Oximetry 98 07/20/22 15:31 Temperature 37.2 C 07/20/22 15:31 Temperature Source Oral 07/20/22 15:31 Pulse 81 07/20/22 15:31 Blood Pressure 145/85 H 07/20/22 15:31 Blood Pressure Position Sitting 07/20/22 15:31 Pulse Oximetry 98 07/20/22 15:31 Oxygen Delivery Method Room Air 07/20/22 15:31 Oxygen Flow Rate 0 07/20/22 15:31
[2022-07-20 15:53] VITALS: RESP 17
--- NOTE | 2022-07-20 16:36 | PDOC.MHCN ---
Date of service: 07/20/22 Time of Service: 16:36 PHQ-9 Over the last 2 weeks, how often have you been bothered by any of the following problems? 1. Little interest or pleasure in doing things: more than half the days 2. Feeling down, depressed, or hopeless: nearly every day 3. Trouble falling or staying asleep, or sleeping too much: more than half the days 4. Feeling tired or having little energy: nearly every day 5. Poor appetite or overeating: several days 6. Feeling bad about yourself - or that you are a failure or have let yourself and your family down: not at all 7. Trouble concentrating on things, such as reading the newspaper or watching television: several days 8. Moving or speaking so slowly that other people could have noticed? - Or the opposite - being so fidgety or restless that you have been moving around a lot more than usual: not at all 9. Thoughts that you would be better off or of hurting yourself in some way: not at all Total score: 12 If you checked off any problems, how difficult have these problems made it for you to do your work, take care of things at home, or get along with other people?: somewhat difficult Source: Developed by Drs. Santiago Olivares, Yany Walker, Allan Guzman and colleagues, with an educational lauren from [employer]. Suicide Severity Rate CSSRS Have you wished you were or wished you could go to sleep and not wake up?: Yes Have you actually had any thoughts of killing yourself?: Yes CSSRS2 Have you been thinking about how you might do this?: No Have you had these thoughts and had some intention of acting on them?: No Have you started to work out or worked out the details of how to kill yourself? Do you intend to carry out this plan?: No CSSRS3 Have you ever done anything, started to do anything or prepared to do anything to end your life?: Yes Screening Score Total Score: 6 Screening: Positive Mental Health Emergency Note Release [facility] release signed:: Yes Reason for Visit Pedro Pablo presented to [facility] due to a recent medication change. Pedro Pablo began his new medication today and reports he was hearing a whisper and had head fog. In the last 2 weeks has the pt presented for ES prior to today?: Unknown Client Information Client is: Adult Outpatient Well Housed: Yes Non Suicidal Self Injury Current: No History: yes, Pedro Pablo has previous history of suicidal ideation and suicide attempts via overdosing. Safety Risk/Harm to Self or Others Current Ideation to Harm Self or Others: No Risk: Does risk to harm exist?: No Risk: N/A Duty to warn indicated: No Asssessment/Mental Status Appearance: Unremarkable Attitude: Cooperative Behavior: Unremarkable Speech: Normal Affect: Cogruent with mood Mood: Anxious Thought process: Unremarkable Hallucinations: yes, (Pedro Pablo reports he could hear whispering but could not identify what the voices were saying.) Auditory Delusions: No evidence Attention: Unremarkable Perception: Not impaired Orientation: Fully orientated Memory: Intact Insight: Fair Judgement: Good Neurovegetative Symptoms Sleep: No change Appetitie: No change Interests: No change Energy: No change Libido: Not applicable Substance Use: Do you use nicotine?: No Have you used substances in the last 7 days?: No Additional Issues: Assaultive/Threatening Behavior: No Medical Concerns: Yes Client engaged in active self harm w/weapon: No Threatening to run away: No Child reported abuse/neglect: No Voluntarily presenting for services: Yes Domestic violence is a concern: No Extreme Psychosis or extreme behavior is present: No Impression Pedro Pablo presented to [facility] after taking his first dosage of a new medication. Pedro Pablo reports this medication made his head foggy, he was hearing whispering, and he felt unsafe to be alone. Pedro Pablo reports he is not endorsing SI/HI/NSSI and has not endorsed recently. Pedro Pablo is hoping to just discuss his medication issue, get some feedback, and then call his mom to go home with her. Pedro Pablo and this clinical writer discussed calling his PCP to inform them of these symptoms, monitoring symptoms as he continues to take this medication, and making sure natural supports are available for the first few days of his new prescription. Pedro Pablo agreed those were good ideas and stated he would ask his mom or sister to be available. Pedro Pablo reports wanting more time for the medicine to kick in and allow him to sleep a little bit.Pedro Pablo will be discharged home from [facility]. Resources Reosurces reviewed and given:: Kaitlin, Community therapist and [facility] Plan/Disposition Recommended Disposition: PCP/Office visit. Plan: Pedro Pablo will be discharged home. Pedro Pablo and this clinical writer did not create a safety plan as Pedro Pablo report he feels safe and does not think a safety plan or check ins with [facility] would be beneficial at this time. Pedro Pablo plans to call his PCP office and inform them of these symptoms while also monitoring these symptoms and reporting back to his prescriber. Pedro Pablo will take his medication on 07/21/22 with natural supports around. Person reported agreement to plan: Yes Reports/communication Outcome discussed with: ED/Personnel
== END 2022-07-20 16:59 | disposition home or self-care (01) ==
PROVIDERS: Emergency Provider Physician Assistant; PCP Family Medicine
DX: F41.9 Anxiety disorder, unspecified (principal); R44.0 Auditory hallucinations; T42.4X5A Adverse effect of benzodiazepines, initial encounter
CPT/HCPCS: 99283

== ENCOUNTER 2022-07-21 14:45 | Emergency (ER) | payer OTHER, SELFPAY ==
[2022-07-21 14:42] VITALS: BP 151/94; PULSE 111; RESP 16; TEMP 37.6; O2SAT 97
--- NOTE | 2022-07-21 16:01 | W.ED.GENAD ---
Discharge Plan Disposition Patient Disposition: Home Condition: Stable Discharge Details Clinical Impression: Anxiety Primary Care Provider: Brendon Vivar ED Provider: Ricardo Crabtree Home Meds and New Rx's Prescriptions: Continued cyclobenzaprine 10 mg tablet 10 mg PO BID Qty: 180 3RF trazodone 100 mg tablet 100 mg PO HS Qty: 90 3RF acetaminophen 325 mg capsule 650 mg PO Q6H PRN polyethylene glycol 3350 [Miralax] 17 gram powder in packet 17 g PO DAILY naloxegol 12.5 mg tablet 12.5 mg PO QAM Qty: 60 0RF Rx Instructions: must be taken on empty stomach; no food 1 hr after or 2-3 hrs before dose magnesium gluconate 27 mg magnesium (500 mg) tablet 1,000 mg PO TID Qty: 90 3RF fluoxetine 20 mg capsule 60 mg PO DAILY Qty: 270 3RF gabapentin 800 mg tablet 800 mg PO TID Qty: 270 2RF methadone 10 mg/5 mL solution 110 mg PO QAM calcium carbonate [Tums] 200 mg calcium (500 mg) tablet,chewable 1,000 mg PO BID Qty: 0 0RF Hold Instructions: Resume on 06/15/22. calcitriol 0.5 mcg capsule 0.5 mcg PO BID Qty: 360 3RF Hold Instructions: Resume on 06/15/22. gabapentin 600 mg tablet 800 mg PO TID potassium chloride [K-Tab] 20 mEq tablet extended release 20 meq PO DAILY Qty: 7 0RF magnesium gluconate 27 mg magnesium (500 mg) tablet 27 mg PO BID Qty: 30 0RF No Action clonazepam 1 mg tablet 1 mg PO BID Qty: 14 0RF Discharge Instructions Instructions: Anxiety (ED) Additional Instructions: follow up with your primary care provider within 1 week if you feel more ill, have persistent vomiting or fevers return to the emergency department Medical Decision Making 26 yo male with hx of MENI, anxiety, who comes in with continued complaint of not feeling well. He has been seen multiple times for similar complaints, had multiple lab studies and imaging including a CTA of his chest 3 weeks ago. Today he felt nausea and didn't feel well so came here. He states he has been under a lot of stress at home which causes him to be anxious. He beto chest pain, vomiting, fevers, chills. He told nursing he coughed blood but when I ask him about this he states he has not had any hemoptysis. He is anxious on exam, has clear lung sounds, no murmurs, no leg swelling or calf tenderness and has no abdominal tenderness. Given he recently had a negative cta of his chest doubt pe and do not feel another cta indicated. Offered to perform screening labs but after discussion he wants to try medication for anxiety to see if this helps. Will provide 1mg ativan and 4mg ondansetron and reassess. pt sleeping on reassessment, awakens easily to voice, symptoms have all resolved and has no complaints now. Suspect anxiety vs panic attack. He stopped taking clonazepam and will provide 3 lorazepam for him to use at home. NO si/hi. He is stable for d/c, return precautions given Differential Diagnosis Differential Diagnosis: anxiety, stress, pneumonia HPI General Mode of arrival: ambulatory. Date/Time Provider Initiated Documentation: 07/21/22 14:53. Limitations to Documentation: no limitations. Information obtained by: patient. History of Present Illness 26 year old M presents to the emergency department with the chief complaint of nausea, described as moderate, Patient started experiencing this week(s) (1) and it has been constant. No relieving factors improve symptom(s), No exacerbating factors reported . Patient notes other (anxiety). Patient did receive the following treatments prior to arrival, none Related Data Home Medications Medication Instructions Recorded Confirmed methadone 10 mg/5 mL oral solution 110 mg PO QAM 11/16/21 07/21/22 cyclobenzaprine 10 mg tablet 10 mg PO BID #180 tabs 04/19/22 07/21/22 trazodone 100 mg tablet 100 mg PO HS #90 tabs 05/13/22 07/21/22 gabapentin 600 mg tablet 800 mg PO TID 06/04/22 07/21/22 acetaminophen 325 mg capsule 650 mg PO Q6H PRN 06/07/22 07/21/22 naloxegol 12.5 mg tablet 12.5 mg PO QAM #60 tabs 06/07/22 07/21/22 polyethylene glycol 3350 17 gram 17 g PO DAILY 06/07/22 07/21/22 oral powder packet (Miralax) calcitriol 0.5 mcg capsule 0.5 mcg PO BID #360 caps 06/14/22 07/21/22 calcium carbonate 200 mg calcium 1,000 mg PO BID #0 tabs 06/14/22 07/21/22 (500 mg) chewable tablet (Tums) magnesium gluconate 27 mg 1,000 mg PO TID #90 tabs 06/21/22 07/21/22 magnesium (500 mg) tablet potassium chloride 20 mEq 20 meq PO DAILY #7 tabs 07/04/22 07/21/22 tablet,extended release (K-Tab) magnesium gluconate 27 mg 27 mg PO BID #30 tabs 07/17/22 07/21/22 magnesium (500 mg) tablet clonazepam 1 mg tablet 1 mg PO BID #14 tabs 07/18/22 07/21/22 fluoxetine 20 mg capsule 60 mg PO DAILY #270 caps 07/18/22 07/21/22 gabapentin 800 mg tablet 800 mg PO TID #270 tabs 07/18/22 07/21/22 Previous Rx's Medication Instructions Recorded cyclobenzaprine 10 mg tablet 10 mg PO BID #180 tabs 04/19/22 trazodone 100 mg tablet 100 mg PO HS #90 tabs 05/13/22 naloxegol 12.5 mg tablet 12.5 mg PO QAM #60 tabs 06/07/22 calcitriol 0.5 mcg capsule 0.5 mcg PO BID #360 caps 06/14/22 calcium carbonate 200 mg calcium 1,000 mg PO BID #0 tabs 06/14/22 (500 mg) chewable tablet (Tums) magnesium gluconate 27 mg 1,000 mg PO TID #90 tabs 06/21/22 magnesium (500 mg) tablet potassium chloride 20 mEq 20 meq PO DAILY #7 tabs 07/04/22 tablet,extended release (K-Tab) magnesium gluconate 27 mg 27 mg PO BID #30 tabs 07/17/22 magnesium (500 mg) tablet clonazepam 1 mg tablet 1 mg PO BID #14 tabs 07/18/22 fluoxetine 20 mg capsule 60 mg PO DAILY #270 caps 07/18/22 gabapentin 800 mg tablet 800 mg PO TID #270 tabs 07/18/22 Allergies Allergy/AdvReac Type Severity Reaction Status Date / Time codeine Allergy Intermediate Verified 07/21/22 14:46 amoxicillin AdvReac Intermediate Nausea Verified 07/21/22 14:46 General Stated Complaint: GenMedical ADRIANA: 3 Review of Systems All systems reviewed & are unremarkable except as noted in HPI and below Constitutional Constitutional: Denies chills and Denies fever(s) Cardiovascular Cardiovascular: Denies chest pain and Denies dyspnea Respiratory Respiratory: Denies dyspnea Gastrointestinal Gastrointestinal: Denies abdominal pain, Denies nausea and Denies vomiting Musculoskeletal Musculoskeletal: Denies joint swelling PFSH All Active Problems (Updated 07/21/22 @ 17:31 by Ricardo Crabtree MD) Headache (Acute) Medication reaction (Acute) Anxiety (Chronic) Pulmonary nodule 1 cm or greater in diameter (Acute) Pain, dental (Acute) Chest pain (Acute) Anxiety (Chronic) Dyspnea (Acute) Heart palpitations (Acute) Acute hypokalemia (Acute) Lesion of tongue (Acute) Tingling (Acute) Hypomagnesemia (Acute) Phlebitis (Acute) Back pain (Acute) Therapeutic opioid induced constipation (Acute) Sphincter of Oddi dysfunction (Acute) Abnormal CT scan, kidney (Acute) Intrahepatic bile duct dilation (Acute) Common bile duct dilatation (Acute) Abdominal pain (Acute) Iatrogenic hypocalcemia (Acute) Multiple endocrine neoplasia type I (Chronic) Chronic constipation (Chronic) Primary hyperparathyroidism (Chronic) Depression (Chronic) Hypocalcemia (Chronic) Hypomagnesemia (Chronic) Depression (Chronic) Suicidal ideation (Acute) Elevated parathyroid hormone (Acute) Family history of coronary arteriosclerosis (Chronic) Father of [place] at 50, mother had [place] at 42 Severe anxiety with panic (Acute) Cellulitis (Acute) Medical History Anxiety Depression Family history of multiple endocrine neoplasia, type 1 Hyperlipidemia Hypocalcemia PTSD (post-traumatic stress disorder) Surgical History H/O parathyroidectomy Family History Mother Anxiety Asthma Depression Sister Anxiety Depression Father Cancer lung & stomach Depression Diabetes Hypertension MEN 1 (multiple endocrine neoplasia) Social History Smoking/Tobacco Use Status: Never Smoking risk assessment performed?: Yes Alcohol Intake: never Drug 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 Adopted: No Caregiver/Support person: No Foster care: No Household members: none Housing: house Number of Children: 0 Communication Needs: None Education Level: high school Do you need help understanding health information?: Never 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 and animals: Yes (Ally) Pets and animals: dog(s) Sexually active: No Do you think of yourself as: straight/heterosexual Current gender identity: male What is your relationship status?: How often do you talk on the phone with friends or family?: twice per week How often do you get together with friends or relatives?: never Do you belong to any clubs or organized social groups?: no Panel score (0-1 are the most socially isolated patients): 0 What type of physical activity do you participate in: walking Duration: 15-30 minutes/day Frequency: 5-6 times per week Maryam/Druze: Hinduism Special maryam needs: No Seatbelt use: always Helmet use: Yes Helmet use: always 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: No Do you feel safe at home: Yes Do you feel safe in your relationship?: Yes Exam Const Orientation: alert HENPA Head: normal to inspection Ears: external ears normal General nose exam: external nose normal Mouth: moist mucous membranes Eyes General: appearance normal, both eyes and all related structures Neck Neck: normal visual inspection Resp Effort & Inspection: normal respiratory effort and able to speak in complete sentences Auscultation: clear to auscultation bilaterally Cardio Rate: regular rate Heart Sounds: no murmurs Skin General skin exam: no rashes or lesions noted Neuro General: patient alert and patient oriented x3 Extrem General: normal to inspection Psych Mental Status: mental status grossly normal Course Vital Signs Vital signs: Vital Signs Temperature 37.6 C 07/21/22 14:42 Pulse 111 H 07/21/22 14:42 Respiratory Rate 16 07/21/22 14:42 Blood Pressure 151/94 H 07/21/22 14:42 Pulse Oximetry 97 07/21/22 14:42 Temperature 37.6 C 07/21/22 14:42 Temperature Source Axillary 07/21/22 14:42 Pulse 111 H 07/21/22 14:42 Respiratory Rate 16 07/21/22 14:42 Respiratory Effort 07/21/22 15:34 Respiratory Depth Normal 07/21/22 15:34 Respiratory Pattern Normal 07/21/22 15:34 Blood Pressure 151/94 H 07/21/22 14:42 Blood Pressure Position Sitting 07/21/22 14:42 Pulse Oximetry 97 07/21/22 14:42 Oxygen Delivery Method Room Air 07/21/22 14:42 Oxygen Flow Rate 0 07/21/22 14:42 Pain Level 0 07/21/22 14:42
[2022-07-21] MEDS: Ondansetron O.D.T. 4 MG TABEF (16:11)
[2022-07-21] MEDS: LORazepam 1 MG TAB PO (16:12)
[2022-07-21 17:31] VITALS: BP 129/72; PULSE 86; TEMP 36.6; O2SAT 95
[2022-07-21] MEDS: LORazepam 1 MG TAB 3 MG PO (17:41)
== END 2022-07-21 17:41 | disposition home or self-care (01) ==
PROVIDERS: Emergency Provider Emergency Medicine; PCP Family Medicine
DX: F41.9 Anxiety disorder, unspecified (principal); R11.0 Nausea
CPT/HCPCS: 99283; 99284

== ENCOUNTER 2022-07-22 19:26 | Emergency (ER) | payer OTHER, SELFPAY ==
[2022-07-22 19:29] VITALS: BP 125/93; PULSE 120; RESP 22; TEMP 36.7; O2SAT 98
[2022-07-22 19:44] LABS: Bilirubin Negative (Negative); Blood Large (Negative); Clarity Clear (Clear); Glucose Negative (Negative); Ketones Negative (Negative); Leukocyte Esterase Negative (Negative); Nitrite Negative (Negative); Urobilinogen 0.2 EU/dL (Up TO 0.2)
--- NOTE | 2022-07-22 19:44 | ED.GENADUL_ITS ---
Discharge Plan Disposition Patient Disposition: Home Condition: Stable Discharge Details Clinical Impression: Hematuria Primary Care Provider: Brendon Vivar ED Provider: Ricardo Crabtree Home Meds and New Rx's Prescriptions: Continued cyclobenzaprine 10 mg tablet 10 mg PO BID Qty: 180 3RF trazodone 100 mg tablet 100 mg PO HS Qty: 90 3RF acetaminophen 325 mg capsule 650 mg PO Q6H PRN polyethylene glycol 3350 [Miralax] 17 gram powder in packet 17 g PO DAILY naloxegol 12.5 mg tablet 12.5 mg PO QAM Qty: 60 0RF Rx Instructions: must be taken on empty stomach; no food 1 hr after or 2-3 hrs before dose magnesium gluconate 27 mg magnesium (500 mg) tablet 1,000 mg PO TID Qty: 90 3RF clonazepam 1 mg tablet 1 mg PO BID Qty: 14 0RF fluoxetine 20 mg capsule 60 mg PO DAILY Qty: 270 3RF gabapentin 800 mg tablet 800 mg PO TID Qty: 270 2RF methadone 10 mg/5 mL solution 110 mg PO QAM calcium carbonate [Tums] 200 mg calcium (500 mg) tablet,chewable 1,000 mg PO BID Qty: 0 0RF Hold Instructions: Resume on 06/15/22. calcitriol 0.5 mcg capsule 0.5 mcg PO BID Qty: 360 3RF Hold Instructions: Resume on 06/15/22. gabapentin 600 mg tablet 800 mg PO TID potassium chloride [K-Tab] 20 mEq tablet extended release 20 meq PO DAILY Qty: 7 0RF magnesium gluconate 27 mg magnesium (500 mg) tablet 27 mg PO BID Qty: 30 0RF Discharge Instructions Instructions: Hematuria (ED) Additional Instructions: You are likely passing a kidney stone follow up with your primary care provider within a week if you develop high fevers, persistent vomiting or severe worsening pain return to the emergency department Medical Decision Making 26 yo male with hx of MEN1, prior kidney stone who has a small left punctate kidney stone in the lower pole on renal CT in may of 2022, comes in with a few hours of bloody urine and left lower back pain. Denies fevers, chills, chest pain, dyspnea, dysuria. HE localizes the pain to the left lower back, and states it radiates to the abdomen. His abdomen is not tender to palpation, no cva tenderness. Suspect his kidney stone is now in the ureter, will check cbc, cmp, ua and treat with toradol and reassess. labs show wbc of 16 which is likely stress response, has no findings to suggest uti and no fevers or infetious symptoms. He has red cells on microscopy, his cpk could not be done due to issues with the analyzer but doesn't have any diffuse muscle pain or myalgias and has red cells on micrscopy so doubt rhabdo. Pt feels well, no pain now. Discussed performing another renal colic ct but given he has had numerous imaging studies and his relative young age after discussion with him will defer ct at this time. He feels well enough for d/c and is stable for d/c, he will f/u with his pcp, return precautions given. Differential Diagnosis Differential Diagnosis: kidney stone, uti HPI General Mode of arrival: ambulatory . Date/Time Provider Initiated Documentation: 07/22/22 19:29 . Limitations to Documentation: no limitations . Information obtained by: patient . History of Present Illness 26 year old M presents to the emergency department with the chief complaint of hematuria, described as moderate, Patient started experiencing this hour(s) (3) and it has been intermittent. No relieving factors improve symptom(s), No exacerbating factors reported . Patient notes other (left lower back pain). Patient did receive the following treatments prior to arrival, none Related Data Home Medications Medication Instructions Recorded Confirmed methadone 10 mg/5 mL oral solution 110 mg PO QAM 11/16/21 07/21/22 cyclobenzaprine 10 mg tablet 10 mg PO BID #180 tabs 04/19/22 07/21/22 trazodone 100 mg tablet 100 mg PO HS #90 tabs 05/13/22 07/21/22 gabapentin 600 mg tablet 800 mg PO TID 06/04/22 07/21/22 acetaminophen 325 mg capsule 650 mg PO Q6H PRN 06/07/22 07/21/22 naloxegol 12.5 mg tablet 12.5 mg PO QAM #60 tabs 06/07/22 07/21/22 polyethylene glycol 3350 17 gram 17 g PO DAILY 06/07/22 07/21/22 oral powder packet (Miralax) calcitriol 0.5 mcg capsule 0.5 mcg PO BID #360 caps 06/14/22 07/21/22 calcium carbonate 200 mg calcium 1,000 mg PO BID #0 tabs 06/14/22 07/21/22 (500 mg) chewable tablet (Tums) magnesium gluconate 27 mg 1,000 mg PO TID #90 tabs 06/21/22 07/21/22 magnesium (500 mg) tablet potassium chloride 20 mEq 20 meq PO DAILY #7 tabs 07/04/22 07/21/22 tablet,extended release (K-Tab) magnesium gluconate 27 mg 27 mg PO BID #30 tabs 07/17/22 07/21/22 magnesium (500 mg) tablet clonazepam 1 mg tablet 1 mg PO BID #14 tabs 07/18/22 07/21/22 fluoxetine 20 mg capsule 60 mg PO DAILY #270 caps 07/18/22 07/21/22 gabapentin 800 mg tablet 800 mg PO TID #270 tabs 07/18/22 07/21/22 Previous Rx's Medication Instructions Recorded cyclobenzaprine 10 mg tablet 10 mg PO BID #180 tabs 04/19/22 trazodone 100 mg tablet 100 mg PO HS #90 tabs 05/13/22 naloxegol 12.5 mg tablet 12.5 mg PO QAM #60 tabs 06/07/22 calcitriol 0.5 mcg capsule 0.5 mcg PO BID #360 caps 06/14/22 calcium carbonate 200 mg calcium 1,000 mg PO BID #0 tabs 06/14/22 (500 mg) chewable tablet (Tums) magnesium gluconate 27 mg 1,000 mg PO TID #90 tabs 06/21/22 magnesium (500 mg) tablet potassium chloride 20 mEq 20 meq PO DAILY #7 tabs 07/04/22 tablet,extended release (K-Tab) magnesium gluconate 27 mg 27 mg PO BID #30 tabs 07/17/22 magnesium (500 mg) tablet clonazepam 1 mg tablet 1 mg PO BID #14 tabs 07/18/22 fluoxetine 20 mg capsule 60 mg PO DAILY #270 caps 07/18/22 gabapentin 800 mg tablet 800 mg PO TID #270 tabs 07/18/22 Allergies Allergy/AdvReac Type Severity Reaction Status Date / Time codeine Allergy Intermediate Verified 07/21/22 14:46 amoxicillin AdvReac Intermediate Nausea Verified 07/21/22 14:46 General Stated Complaint: FlankPain ADRIANA: 3 Review of Systems All systems reviewed & are unremarkable except as noted in HPI and below Constitutional Constitutional: Denies chills, Denies fever(s) and Denies weakness Cardiovascular Cardiovascular: Denies chest pain and Denies dyspnea Respiratory Respiratory: Denies cough and Denies dyspnea Gastrointestinal Gastrointestinal: Denies nausea and Denies vomiting Genitourinary Genitourinary: Denies dysuria Musculoskeletal Musculoskeletal: Denies joint swelling Integumentary/Breasts Skin/Breast: Denies rash Neurologic Neurologic: Denies weakness PFSH All Active Problems (Updated 07/22/22 @ 21:30 by Ricardo Crabtree MD) Headache (Acute) Medication reaction (Acute) Anxiety (Chronic) Hematuria (Acute) Pulmonary nodule 1 cm or greater in diameter (Acute) Pain, dental (Acute) Chest pain (Acute) Anxiety (Chronic) Dyspnea (Acute) Heart palpitations (Acute) Acute hypokalemia (Acute) Lesion of tongue (Acute) Tingling (Acute) Hypomagnesemia (Acute) Phlebitis (Acute) Back pain (Acute) Therapeutic opioid induced constipation (Acute) Sphincter of Oddi dysfunction (Acute) Abnormal CT scan, kidney (Acute) Intrahepatic bile duct dilation (Acute) Common bile duct dilatation (Acute) Abdominal pain (Acute) Iatrogenic hypocalcemia (Acute) Multiple endocrine neoplasia type I (Chronic) Chronic constipation (Chronic) Primary hyperparathyroidism (Chronic) Depression (Chronic) Hypocalcemia (Chronic) Hypomagnesemia (Chronic) Depression (Chronic) Suicidal ideation (Acute) Elevated parathyroid hormone (Acute) Family history of coronary arteriosclerosis (Chronic) Father of [place] at 50, mother had [place] at 42 Severe anxiety with panic (Acute) Cellulitis (Acute) Medical History Anxiety Depression Family history of multiple endocrine neoplasia, type 1 Hyperlipidemia Hypocalcemia PTSD (post-traumatic stress disorder) Surgical History H/O parathyroidectomy Family History Mother Anxiety Asthma Depression Sister Anxiety Depression Father Cancer lung & stomach Depression Diabetes Hypertension MEN 1 (multiple endocrine neoplasia) Social History Smoking/Tobacco Use Status: Never Smoking risk assessment performed?: Yes Alcohol Intake: never Drug 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 Adopted: No Caregiver/Support person: No Foster care: No Household members: none Housing: house Number of Children: 0 Communication Needs: None Education Level: high school Do you need help understanding health information?: Never 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 and animals: Yes (Ally) Pets and animals: dog(s) Sexually active: No Do you think of yourself as: straight/heterosexual Current gender identity: male What is your relationship status?: How often do you talk on the phone with friends or family?: twice per week How often do you get together with friends or relatives?: never Do you belong to any clubs or organized social groups?: no Panel score (0-1 are the most socially isolated patients): 0 What type of physical activity do you participate in: walking Duration: 15-30 minutes/day Frequency: 5-6 times per week Maryam/Jehovah'S Witness: Hindu Special maryam needs: No Seatbelt use: always Helmet use: Yes Helmet use: always 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 Exam Const General: no acute distress Orientation: alert HENMT Head: normal to inspection Ears: external ears normal General nose exam: external nose normal Mouth: moist mucous membranes Eyes General: appearance normal, both eyes and all related structures Neck Neck: normal visual inspection Resp Effort & Inspection: normal respiratory effort and able to speak in complete sentences Cardio Rate: regular rate GI Palpation: soft and nontender Back/Spine/Pelvis Back: no CVA tenderness Skin General skin exam: no rashes or lesions noted Neuro General: patient alert and patient oriented x3 Extrem General: normal to inspection Psych Mental Status: mental status grossly normal Course Vital Signs Vital signs: Vital Signs Temperature 36.7 C 07/22/22 19:29 Pulse 120 H 07/22/22 19:29 Respiratory Rate 07/22/22 19:29 Blood Pressure 125/93 H 07/22/22 19:29 Pulse Oximetry 98 07/22/22 19:29 Temperature 36.7 C 07/22/22 19:29 Temperature Source Oral 07/22/22 19:29 Pulse 120 H 07/22/22 19:29 Respiratory Rate 07/22/22 19:29 Blood Pressure 125/93 H 07/22/22 19:29 Blood Pressure Position Sitting 07/22/22 19:29 Pulse Oximetry 98 07/22/22 19:29 Oxygen Delivery Method Room Air 07/22/22 19:29 Oxygen Flow Rate 0 07/22/22 19:29 Pain Level 4 07/22/22 19:29
[2022-07-22 19:54] LABS: Bacteria Negative HPF (Negative); C & S Indicated? No; Casts Negative LPF (Negative); Crystals Negative HPF (Negative); Epithelial Cells Few HPF (Negative); Mucus Negative (Negative); Other Cells Negative (Negative); RBC >50 HPF (0-2); WBC 0-2 HPF (0-5)
[2022-07-22] MEDS: Normal Saline 1,000 ML 1000 ML IV (20:00)
[2022-07-22] MEDS: Ketorolac 15 MG/ML VIAL IVP (20:01)
[2022-07-22 20:03] LABS: Abs Immature Grans 0.08 10^3/uL (0.0-0.06); Absolute Basophil Count 0.05 10^3/uL (0.0-0.2); Absolute Neutrophil Count 13.96 10^3/uL (1.2-6.7); Basophils % 0.3; Eosinophils % 0.6; HCT 37.1 % (40.0-50.0); HGB 12.8 g/dL (13.5-17.5); Immature Grans % 0.5; Lymphocytes % 8.2; MCH 31.1 pg (27.0-33.0); MCHC 34.5 % (32.0-36.0); MCV 90 fL (80-95); MPV 10.2 fL (8.0-11.0); Monocytes % 5.5; Neutrophils % 84.9; Platelet Count 326 10^3/uL (130-400); RBC 4.12 10^6/uL (4.36-5.78); RDW 11.9 % (11.8-14.1); RDW-SD 38.9 fL; WBC 16.44 10^3/uL (4.4-10.8)
[2022-07-22 20:07] LABS: Absolute Lymphocyte Count 1.35 10^3/uL (1.2-3.4)
[2022-07-22 20:17] LABS: INR 0.9 (0.9-1.1); Prothrombin Time 9.4 sec (9.3-11.0)
[2022-07-22 20:43] LABS: ALT 154 U/L (16-63); AST 1132 U/L (15-37); Albumin 3.6 g/dL (3.4-5.0); Alkaline Phosphatase 109 U/L (46-116); BUN 17 mg/dL (7-18); Bilirubin, Total 0.3 mg/dL (0.2-1.0); CREATININE 1.4 mg/dL (0.70-1.30); Calcium 8.2 mg/dL (8.5-10.1); Chloride 99 mmol/L (98-107); Estimated GFR 70.21 (mL/min/1.73m2); Glucose 117 mg/dL (74-106); Potassium 3.7 mmol/L (3.5-5.1); Sodium 136 mmol/L (136-145); Total Protein 7.9 g/dL (6.4-8.2)
[2022-07-22 21:52] VITALS: BP 118/80; PULSE 97; RESP 16; TEMP 37; O2SAT 96
== END 2022-07-22 21:51 | disposition home or self-care (01) ==
PROVIDERS: Emergency Provider Emergency Medicine; PCP Family Medicine
DX: R31.9 Hematuria, unspecified (principal)
CPT/HCPCS: 80053; 82550; 96361; 96374; 99284; 81003; 81015; 83735; 85025; 85610; 85730; J1885

== ENCOUNTER 2022-07-22 21:09 | Outpatient (REF) | payer MEDICAID, SELFPAY ==
[2022-07-22 21:46] LABS: RBC 20-50 HPF (0-2); WBC 0-2 HPF (0-5)
[2022-07-22 21:47] LABS: Bacteria Negative HPF (Negative); C & S Indicated? No; Casts Negative LPF (Negative); Crystals Negative HPF (Negative); Epithelial Cells Few HPF (Negative); Mucus Negative (Negative); Other Cells Negative (Negative)
== END 2022-07-22 21:10 | disposition home or self-care (01) ==
LOC: LBN 21:09
PROVIDERS: PCP Family Medicine; Visit Provider Nurse Practitioner Family
DX: R31.9 Hematuria, unspecified (principal)
CPT/HCPCS: 81015; 87086

== ENCOUNTER 2022-07-26 10:52 | Emergency (ER) | payer OTHER, SELFPAY ==
--- NOTE | 2022-07-26 10:45 | RT.EKG_ITS ---
APPROVED REPORT Exam: Resting ECG Reason for Exam: chest pain Patient Location: E HR:79 bpm ECG Measurements Heart Rate 79 AXIS OR 67 P 0 QRSd 100 QRS 51 QT 396 T 23 QTc 455 Conclusion Sinus rhythm...normal P axis, V-rate 60- 99 Normal Hickman I have reviewed and interpreted ECG and agree with software generated interpretation. Normal Electrocardiogram
[2022-07-26 10:57] VITALS: BP 149/93; PULSE 91; RESP 18; TEMP 36.8; O2SAT 98
--- NOTE | 2022-07-26 11:00 | ED.GENADUL_ITS ---
Discharge Plan Disposition Patient Disposition: Home Discharge Details Clinical Impression: Costochondritis Primary Care Provider: Brendon Vivar ED Provider: Santiago Ibarra [facility] Meds and New Rx's Prescriptions: Continued cyclobenzaprine 10 mg tablet 10 mg PO BID Qty: 180 3RF trazodone 100 mg tablet 100 mg PO HS Qty: 90 3RF acetaminophen 325 mg capsule 650 mg PO Q6H PRN polyethylene glycol 3350 [Miralax] 17 gram powder in packet 17 g PO DAILY naloxegol 12.5 mg tablet 12.5 mg PO QAM Qty: 60 0RF Rx Instructions: must be taken on empty stomach; no food 1 hr after or 2-3 hrs before dose fluoxetine 20 mg capsule 60 mg PO DAILY Qty: 270 3RF gabapentin 800 mg tablet 800 mg PO TID Qty: 270 2RF methadone 10 mg/5 mL solution 110 mg PO QAM calcium carbonate [Tums] 200 mg calcium (500 mg) tablet,chewable 1,000 mg PO BID Qty: 0 0RF Hold Instructions: Resume on 06/15/22. calcitriol 0.5 mcg capsule 0.5 mcg PO BID Qty: 360 3RF Hold Instructions: Resume on 06/15/22. clonazepam 1 mg tablet 0.5 mg PO BID potassium chloride [K-Tab] 20 mEq tablet extended release 20 meq PO DAILY Qty: 7 0RF magnesium gluconate 27 mg magnesium (500 mg) tablet 27 mg PO BID Qty: 30 0RF Discharge Instructions Instructions: Costochondritis (ED) Additional Instructions: You were seen in the ED for chest pain that is localized and easily reproducible and consistent with costochondritis as we discussed. Your EKG is normal. Recommend ibuprofen 400 to 600 mg 3 times a day for the next 4 to 5 days which should improve your symptoms. Follow-up with primary care next week if not improving. Return to ED for new or worsening pain, fever, shortness of breath, other concerns. Medical Decision Making Patient presents to ED with concern for chest pain. EKG from triage normal per my read. Chest pain is easily reproducible and increased with movement. Vital signs are normal. Lungs are clear. Patient with multiple ED visits and previous full chest pain work-up 1 month ago. His chest pain seems to be costochondritis in nature. He has a normal EKG with normal pulse oximetry and reproducible pain. Patient is reassured and is comfortable being started on ibuprofen and following up with primary care. Return precautions discussed. Medical Records Medical records reviewed: Yes I reviewed the patient's medical records. ECG Data Attestation: I personally reviewed and interpreted this ECG (s) as follows: Interpretation: see EKG HPI General Date/Time Provider Initiated Documentation: 07/26/22 10:54 . Information obtained by: patient and old records reviewed . HPI Narrative: Patient presents to ED with concern for chest pain. Patient reports for the last 2 days he has noticed pain in his lower sternal area and feels like there is swelling there. Pain is worse with a deep breath as well as with movement. He denies any injury. He denies any fever, cough, shortness of breath. He has no leg pain or leg swelling. Denies any radiation of pain. Of note patient has multiple visits to the ED almost on a daily basis for myriad of complaints. He has had previous full work-up for chest pain most recently mid June. Related Data Home Medications Medication Instructions Recorded Confirmed methadone 10 mg/5 mL oral solution 110 mg PO QAM 11/16/21 07/26/22 cyclobenzaprine 10 mg tablet 10 mg PO BID #180 tabs 04/19/22 07/26/22 trazodone 100 mg tablet 100 mg PO HS #90 tabs 05/13/22 07/26/22 acetaminophen 325 mg capsule 650 mg PO Q6H PRN 06/07/22 07/26/22 naloxegol 12.5 mg tablet 12.5 mg PO QAM #60 tabs 06/07/22 07/26/22 polyethylene glycol 3350 17 gram 17 g PO DAILY 06/07/22 07/26/22 oral powder packet (Miralax) calcitriol 0.5 mcg capsule 0.5 mcg PO BID #360 caps 06/14/22 07/26/22 calcium carbonate 200 mg calcium 1,000 mg PO BID #0 tabs 06/14/22 07/26/22 (500 mg) chewable tablet (Tums) potassium chloride 20 mEq 20 meq PO DAILY #7 tabs 07/04/22 07/26/22 tablet,extended release (K-Tab) magnesium gluconate 27 mg 27 mg PO BID #30 tabs 07/17/22 07/26/22 magnesium (500 mg) tablet fluoxetine 20 mg capsule 60 mg PO DAILY #270 caps 07/18/22 07/26/22 gabapentin 800 mg tablet 800 mg PO TID #270 tabs 07/18/22 07/26/22 clonazepam 1 mg tablet 0.5 mg PO BID 07/26/22 07/26/22 Previous Rx's Medication Instructions Recorded cyclobenzaprine 10 mg tablet 10 mg PO BID #180 tabs 04/19/22 trazodone 100 mg tablet 100 mg PO HS #90 tabs 05/13/22 naloxegol 12.5 mg tablet 12.5 mg PO QAM #60 tabs 06/07/22 calcitriol 0.5 mcg capsule 0.5 mcg PO BID #360 caps 06/14/22 calcium carbonate 200 mg calcium 1,000 mg PO BID #0 tabs 06/14/22 (500 mg) chewable tablet (Tums) potassium chloride 20 mEq 20 meq PO DAILY #7 tabs 07/04/22 tablet,extended release (K-Tab) magnesium gluconate 27 mg 27 mg PO BID #30 tabs 07/17/22 magnesium (500 mg) tablet fluoxetine 20 mg capsule 60 mg PO DAILY #270 caps 07/18/22 gabapentin 800 mg tablet 800 mg PO TID #270 tabs 07/18/22 Allergies Allergy/AdvReac Type Severity Reaction Status Date / Time codeine Allergy Intermediate Verified 07/26/22 11:43 amoxicillin AdvReac Intermediate Nausea Verified 07/26/22 11:43 General Stated Complaint: Chest Pain ADRIANA: 3 Review of Systems Narrative: per HPI PFSH All Active Problems (Updated 07/26/22 @ 11:42 by Santiago Ibarra MD) Headache (Acute) Medication reaction (Acute) Anxiety (Chronic) Hematuria (Acute) Costochondritis (Acute) Pulmonary nodule 1 cm or greater in diameter (Acute) Heart palpitations (Acute) Acute hypokalemia (Acute) Lesion of tongue (Acute) Tingling (Acute) Hypomagnesemia (Acute) Phlebitis (Acute) Back pain (Acute) Therapeutic opioid induced constipation (Acute) Sphincter of Oddi dysfunction (Acute) Abnormal CT scan, kidney (Acute) Intrahepatic bile duct dilation (Acute) Common bile duct dilatation (Acute) Abdominal pain (Acute) Iatrogenic hypocalcemia (Acute) Multiple endocrine neoplasia type I (Chronic) Chronic constipation (Chronic) Primary hyperparathyroidism (Chronic) Depression (Chronic) Hypocalcemia (Chronic) Hypomagnesemia (Chronic) Depression (Chronic) Suicidal ideation (Acute) Elevated parathyroid hormone (Acute) Family history of coronary arteriosclerosis (Chronic) Father of [place] at 50, mother had [place] at 42 Severe anxiety with panic (Acute) Cellulitis (Acute) Medical History Anxiety Depression Family history of multiple endocrine neoplasia, type 1 Hyperlipidemia Hypocalcemia PTSD (post-traumatic stress disorder) Surgical History H/O parathyroidectomy Family History Mother Anxiety Asthma Depression Sister Anxiety Depression Father Cancer lung & stomach Depression Diabetes Hypertension MEN 1 (multiple endocrine neoplasia) Social History Smoking/Tobacco Use Status: Never Smoking risk assessment performed?: Yes Alcohol Intake: never Drug 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 Adopted: No Caregiver/Support person: No Foster care: No Household members: none Housing: house Number of Children: 0 Communication Needs: None Education Level: high school Do you need help understanding health information?: Never 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 and animals: Yes (Ally) Pets and animals: dog(s) Sexually active: No Do you think of yourself as: straight/heterosexual Current gender identity: male What is your relationship status?: How often do you talk on the phone with friends or family?: twice per week How often do you get together with friends or relatives?: never Do you belong to any clubs or organized social groups?: no Panel score (0-1 are the most socially isolated patients): 0 What type of physical activity do you participate in: walking Duration: 15-30 minutes/day Frequency: 5-6 times per week Maryam/Latter Day: Scientologist Special maryam needs: No Seatbelt use: always Helmet use: Yes Helmet use: always Drive 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 telephone directory distributor 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 Exam Narrative Exam Narrative: Const: WDWN male in NAD. HEENT: NC/AT. Normal facial exam. Eyes: Normal conjunctiva and sclera. Neck: Supple. Trachea midline. Chest: Tender to palpation along bilateral lower sternal border. Lungs: Normal respiratory effort. Lungs are clear. Cor: RRR without murmur/gallop. Good radial pulses. Neuro: A+O x 3. Normal speech, mentation, gait. Cranial nerves II - XII grossly intact. No gross motor or sensory deficit. Ext: No C/C/E. Skin: Warm and dry without rash. Course Vital Signs Vital signs: Vital Signs Temperature 98.3 F 07/26/22 10:57 Pulse 91 H 07/26/22 10:57 Respiratory Rate 18 07/26/22 10:57 Blood Pressure 149/93 H 07/26/22 10:57 Pulse Oximetry 98 07/26/22 10:57 Temperature 98.3 F 07/26/22 10:57 Pulse 91 H 07/26/22 10:57 Respiratory Rate 18 07/26/22 10:57 Respiratory Effort Normal, Non-Labored 07/26/22 10:58 Blood Pressure 149/93 H 07/26/22 10:57 Pulse Oximetry 98 07/26/22 10:57 Oxygen Delivery Method Room Air 07/26/22 10:57 Oxygen Flow Rate 0 07/26/22 10:57
[2022-07-26 11:41] VITALS: BP 124/67; PULSE 75; RESP 15; O2SAT 96
[2022-07-26] MEDS: Ibuprofen 600 MG TAB PO (11:45)
== END 2022-07-26 13:31 | disposition home or self-care (01) ==
LOC: ER 11:56
PROVIDERS: Emergency Provider Emergency Medicine; PCP Family Medicine
DX: M94.0 Chondrocostal junction syndrome [Tietze] (principal); R07.9 Chest pain, unspecified
CPT/HCPCS: 93005; 99283; 93010

== ENCOUNTER 2022-07-28 20:18 | Emergency (ER) | payer OTHER, SELFPAY ==
[2022-07-28 20:40] VITALS: BP 142/90; PULSE 98; RESP 20; TEMP 37.1; O2SAT 98
== END 2022-07-28 22:25 ==
PROVIDERS: Emergency Provider Physician Assistant; PCP Family Medicine
DX: K08.89 Other specified disorders of teeth and supporting structures (principal)

== ENCOUNTER 2022-07-29 01:31 | Emergency (ER) | payer OTHER, SELFPAY ==
[2022-07-29 01:47] VITALS: BP 137/97; PULSE 81; RESP 18; TEMP 36.6; O2SAT 98
--- NOTE | 2022-07-29 01:58 | ED.GENADUL_ITS ---
Discharge Plan Disposition Patient Disposition: Home Condition: Stable Discharge Details Clinical Impression: Pain, dental Primary Care Provider: Brendon Vivar ED Provider: Ricardo Crabtree Home Meds and New Rx's Prescriptions: Continued cyclobenzaprine 10 mg tablet 10 mg PO BID Qty: 180 3RF trazodone 100 mg tablet 100 mg PO HS Qty: 90 3RF acetaminophen 325 mg capsule 650 mg PO Q6H PRN polyethylene glycol 3350 [Miralax] 17 gram powder in packet 17 g PO DAILY naloxegol 12.5 mg tablet 12.5 mg PO QAM Qty: 60 0RF Rx Instructions: must be taken on empty stomach; no food 1 hr after or 2-3 hrs before dose fluoxetine 20 mg capsule 60 mg PO DAILY Qty: 270 3RF gabapentin 800 mg tablet 800 mg PO TID Qty: 270 2RF methadone 10 mg/5 mL solution 110 mg PO QAM calcium carbonate [Tums] 200 mg calcium (500 mg) tablet,chewable 1,000 mg PO BID Qty: 0 0RF Hold Instructions: Resume on 06/15/22. calcitriol 0.5 mcg capsule 0.5 mcg PO BID Qty: 360 3RF Hold Instructions: Resume on 06/15/22. clonazepam 1 mg tablet 0.5 mg PO BID potassium chloride [K-Tab] 20 mEq tablet extended release 20 meq PO DAILY Qty: 7 0RF magnesium gluconate 27 mg magnesium (500 mg) tablet 27 mg PO BID Qty: 30 0RF Discharge Instructions Instructions: Toothache (ED) Additional Instructions: follow up with your dentist as soon as possible if you feel more ill, have fevers or inability to swallow liquids return to the emergency department Medical Decision Making 26 yo male who has an eroded left lower mid molar tooth that he states is due for extraction later this month comes in with worsening pain in this tooth for a day. Denies fevers, chills, difficulty swallowing or breathing. He arrives stable speaking in full sentences and swallowing normally. He localizes the pain to the left lower mid molar and it is eroded on the lower outer half portion of the tooth. There is no drainage, no gum swelling, no facial swelling or submandibular swelling. Normal posterior pharynx, midline uvula. HE was recently on antibiotics for this same issue. Discussed with him risks benerits of restarting abx and he wants to hold off on restarting them and see his dentist and I feel this is reasonable since there's no evidence of abscess. Will provide topical analgesia. HE is stable for d/c. He has no findings to suggest ashok's or more serious pathology but was given return precautions if symptoms develop or if he has worsening symptoms Differential Diagnosis Differential Diagnosis: dental caries, pulpitis HPI General Mode of arrival: ambulatory . Date/Time Provider Initiated Documentation: 07/29/22 01:39 . Limitations to Documentation: no limitations . Information obtained by: patient . History of Present Illness 26 year old M presents to the emergency department with the chief complaint of left lower dental pain, described as moderate, Quality is described as aching, Patient started experiencing this day(s) (1) and it has been constant. No relieving factors improve symptom(s), No exacerbating factors reported . Patient notes no other symptoms.. Related Data Home Medications Medication Instructions Recorded Confirmed methadone 10 mg/5 mL oral solution 110 mg PO QAM 11/16/21 07/26/22 cyclobenzaprine 10 mg tablet 10 mg PO BID #180 tabs 04/19/22 07/26/22 trazodone 100 mg tablet 100 mg PO HS #90 tabs 05/13/22 07/26/22 acetaminophen 325 mg capsule 650 mg PO Q6H PRN 06/07/22 07/26/22 naloxegol 12.5 mg tablet 12.5 mg PO QAM #60 tabs 06/07/22 07/26/22 polyethylene glycol 3350 17 gram 17 g PO DAILY 06/07/22 07/26/22 oral powder packet (Miralax) calcitriol 0.5 mcg capsule 0.5 mcg PO BID #360 caps 06/14/22 07/26/22 calcium carbonate 200 mg calcium 1,000 mg PO BID #0 tabs 06/14/22 07/26/22 (500 mg) chewable tablet (Tums) potassium chloride 20 mEq 20 meq PO DAILY #7 tabs 07/04/22 07/26/22 tablet,extended release (K-Tab) magnesium gluconate 27 mg 27 mg PO BID #30 tabs 07/17/22 07/26/22 magnesium (500 mg) tablet fluoxetine 20 mg capsule 60 mg PO DAILY #270 caps 07/18/22 07/26/22 gabapentin 800 mg tablet 800 mg PO TID #270 tabs 07/18/22 07/26/22 clonazepam 1 mg tablet 0.5 mg PO BID 07/26/22 07/26/22 Previous Rx's Medication Instructions Recorded cyclobenzaprine 10 mg tablet 10 mg PO BID #180 tabs 04/19/22 trazodone 100 mg tablet 100 mg PO HS #90 tabs 05/13/22 naloxegol 12.5 mg tablet 12.5 mg PO QAM #60 tabs 06/07/22 calcitriol 0.5 mcg capsule 0.5 mcg PO BID #360 caps 06/14/22 calcium carbonate 200 mg calcium 1,000 mg PO BID #0 tabs 06/14/22 (500 mg) chewable tablet (Tums) potassium chloride 20 mEq 20 meq PO DAILY #7 tabs 07/04/22 tablet,extended release (K-Tab) magnesium gluconate 27 mg 27 mg PO BID #30 tabs 07/17/22 magnesium (500 mg) tablet fluoxetine 20 mg capsule 60 mg PO DAILY #270 caps 07/18/22 gabapentin 800 mg tablet 800 mg PO TID #270 tabs 07/18/22 Allergies Allergy/AdvReac Type Severity Reaction Status Date / Time codeine Allergy Intermediate Verified 07/26/22 11:43 amoxicillin AdvReac Intermediate Nausea Verified 07/26/22 11:43 General Stated Complaint: DentalOral ADRIANA: 4 Review of Systems All systems reviewed & are unremarkable except as noted in HPI and below Constitutional Constitutional: Denies chills, Denies fever(s) and Denies weakness ENT Ears, Nose, Mouth, and Throat: Denies change in voice Cardiovascular Cardiovascular: Denies chest pain and Denies dyspnea Respiratory Respiratory: Denies dyspnea Gastrointestinal Gastrointestinal: Denies abdominal pain, Denies nausea and Denies vomiting Integumentary/Breasts Skin/Breast: Denies rash Neurologic Neurologic: Denies weakness PFSH All Active Problems (Updated 07/29/22 @ 02:03 by Ricardo Crabtree MD) Headache (Acute) Medication reaction (Acute) Anxiety (Chronic) Hematuria (Acute) Costochondritis (Acute) Pain, dental (Acute) Pulmonary nodule 1 cm or greater in diameter (Acute) Heart palpitations (Acute) Acute hypokalemia (Acute) Lesion of tongue (Acute) Tingling (Acute) Hypomagnesemia (Acute) Phlebitis (Acute) Back pain (Acute) Therapeutic opioid induced constipation (Acute) Sphincter of Oddi dysfunction (Acute) Abnormal CT scan, kidney (Acute) Intrahepatic bile duct dilation (Acute) Common bile duct dilatation (Acute) Abdominal pain (Acute) Iatrogenic hypocalcemia (Acute) Multiple endocrine neoplasia type I (Chronic) Chronic constipation (Chronic) Primary hyperparathyroidism (Chronic) Depression (Chronic) Hypocalcemia (Chronic) Hypomagnesemia (Chronic) Depression (Chronic) Suicidal ideation (Acute) Elevated parathyroid hormone (Acute) Family history of coronary arteriosclerosis (Chronic) Father of [place] at 50, mother had [place] at 42 Severe anxiety with panic (Acute) Cellulitis (Acute) Medical History Anxiety Depression Family history of multiple endocrine neoplasia, type 1 Hyperlipidemia Hypocalcemia PTSD (post-traumatic stress disorder) Surgical History H/O parathyroidectomy Family History Mother Anxiety Asthma Depression Sister Anxiety Depression Father Cancer lung & stomach Depression Diabetes Hypertension MEN 1 (multiple endocrine neoplasia) Social History Smoking/Tobacco Use Status: Never Smoking risk assessment performed?: Yes Alcohol Intake: never Drug 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 Adopted: No Caregiver/Support person: No Foster care: No Household members: none Housing: house Number of Children: 0 Communication Needs: None Education Level: high school Do you need help understanding health information?: Never 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 and animals: Yes (Ally) Pets and animals: dog(s) Sexually active: No Do you think of yourself as: straight/heterosexual Current gender identity: male What is your relationship status?: How often do you talk on the phone with friends or family?: twice per week How often do you get together with friends or relatives?: never Do you belong to any clubs or organized social groups?: no Panel score (0-1 are the most socially isolated patients): 0 What type of physical activity do you participate in: walking Duration: 15-30 minutes/day Frequency: 5-6 times per week Maryam/Cheondoism: Cheondoism Special maryam needs: No Seatbelt use: always Helmet use: Yes Helmet use: always Drive 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 coach 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 Exam Const General: no acute distress Orientation: alert HENMT Head: normal to inspection Ears: external ears normal General nose exam: external nose normal Mouth: moist mucous membranes Eyes General: appearance normal, both eyes and all related structures Neck Neck: normal visual inspection Resp Effort & Inspection: normal respiratory effort and able to speak in complete sentences Cardio Rate: regular rate Skin General skin exam: no rashes or lesions noted Neuro General: patient alert and patient oriented x3 Extrem General: normal to inspection Psych Mental Status: mental status grossly normal Course Vital Signs Vital signs: Vital Signs Temperature 36.6 C 07/29/22 01:47 Pulse 81 07/29/22 01:47 Respiratory Rate 18 07/29/22 01:47 Blood Pressure 137/97 H 07/29/22 01:47 Pulse Oximetry 98 07/29/22 01:47 Temperature 36.6 C 07/29/22 01:47 Temperature Source Tympanic 07/29/22 01:47 Pulse 81 07/29/22 01:47 Respiratory Rate 18 07/29/22 01:47 Respiratory Effort Normal 07/29/22 01:52 Blood Pressure 137/97 H 07/29/22 01:47 Blood Pressure Position Sitting 07/29/22 01:47 Pulse Oximetry 98 07/29/22 01:47 Oxygen Delivery Method Room Air 07/29/22 01:47 Oxygen Flow Rate 0 07/29/22 01:47 Pain Level 8 07/29/22 01:47
[2022-07-29] MEDS: Benzocaine 20% Gel 30 GM JAR MM (02:45)
== END 2022-07-29 03:25 | disposition home or self-care (01) ==
PROVIDERS: Emergency Provider Emergency Medicine; PCP Family Medicine
DX: K08.89 Other specified disorders of teeth and supporting structures (principal)
CPT/HCPCS: 99283; 99284

== ENCOUNTER 2022-07-30 21:10 | Emergency (ER) | payer OTHER, SELFPAY ==
[2022-07-30 21:16] VITALS: TEMP 37
--- NOTE | 2022-07-30 21:28 | DI.RAD_ITS ---
Exam(s) XR CHEST 2V PA LATERAL EXAM: XR CHEST 2V PA LATERAL CLINICAL HISTORY: fever TECHNIQUE: 2D digital imaging was performed. COMPARISON: CR XR PORTABLE CHEST AP from 07/17/2022 FINDINGS: HEART: Normal size. Aorta: Not dilated. PULMONARY VASCULATURE: Normal. LUNGS: Clear. PLEURAL SPACE: No pleural effusion or pneumothorax. BONE:Unremarkable for age. IMPRESSION: No acute abnormality. DATA REPOSITORY: RADIATION DOSE DELIVERED:
[2022-07-30 21:57] VITALS: BP 145/65; PULSE 69; RESP 16; TEMP 37.3; O2SAT 97
--- NOTE | 2022-07-30 22:09 | ED.GENADUL_ITS ---
Discharge Plan Disposition Patient Disposition: Home Condition: Stable Discharge Details Clinical Impression: Headache, Acute viral syndrome, Chronic renal disease Primary Care Provider: Brendon Vivar ED Provider: Luh Tsai Home Meds and New Rx's Prescriptions: Continued cyclobenzaprine 10 mg tablet 10 mg PO BID Qty: 180 3RF trazodone 100 mg tablet 100 mg PO HS Qty: 90 3RF acetaminophen 325 mg capsule 650 mg PO Q6H PRN polyethylene glycol 3350 [Miralax] 17 gram powder in packet 17 g PO DAILY naloxegol 12.5 mg tablet 12.5 mg PO QAM Qty: 60 0RF Rx Instructions: must be taken on empty stomach; no food 1 hr after or 2-3 hrs before dose fluoxetine 20 mg capsule 60 mg PO DAILY Qty: 270 3RF gabapentin 800 mg tablet 800 mg PO TID Qty: 270 2RF methadone 10 mg/5 mL solution 110 mg PO QAM calcium carbonate [Tums] 200 mg calcium (500 mg) tablet,chewable 1,000 mg PO BID Qty: 0 0RF Hold Instructions: Resume on 06/15/22. calcitriol 0.5 mcg capsule 0.5 mcg PO BID Qty: 360 3RF Hold Instructions: Resume on 06/15/22. clonazepam 1 mg tablet 0.5 mg PO BID potassium chloride [K-Tab] 20 mEq tablet extended release 20 meq PO DAILY Qty: 7 0RF magnesium gluconate 27 mg magnesium (500 mg) tablet 27 mg PO BID Qty: 30 0RF Discharge Instructions Instructions: Viral Syndrome (ED), General Headache (ED) Additional Instructions: Your tests today look reassuring, your liver enzymes are still mildly elevated but significantly improved from your prior assessment Please call your doctor tomorrow Steroid from ibuprofen and Tylenol is much as possible and please have your labs rechecked by your primary care physician within the next week Return earlier should you have new or worsening complaints Referrals: Brendon Vivar DO [Primary Care Provider] - Discharge Data Discharge Date/Time-TO BE ENTERED AT DEPARTURE: 07/31/22 00:14 Medical Decision Making This 26-year-old gentleman known to the hospital presents with multiple complaints including fever and sore throat, hemoglobin and hematocrit are stable for patient Vitals are stable and afebrile in the emergency department, oropharynx patent, uvula midline, negative flu, COVID, RSV As patient's LFTs were elevated on his last visit, these were rechecked and have dramatically improved, he will need outpatient reassessment, his abdomen is completely nontender and has had numerous CAT scans and ultrasounds in the past 2 months Creatinine is 2.1, patient has it looks like history of creatinines ranging from 1.6-2, he is encouraged to drink fluids and follow-up with his doctor regarding this Patient appears well, his vitals are stable for him I do not see a clear etiology of patient's complaints, he is encouraged to be reevaluated by his doctor within the next 48 hours and to return earlier should he have new or worsening complaints Medical Records Medical records reviewed: Yes I reviewed the patient's medical records. Lab Data Lab results reviewed: Yes I reviewed the patient's lab results. HPI General Date/Time Provider Initiated Documentation: 07/30/22 21:22 . HPI Narrative: This 26-year-old male presents with report of fever, 102 prior to arrival today, sore throat, headache. He denies known sick contacts. He denies any abdominal pain, chest pain, shortness of breath. He denies any new sick contacts. Denies any rashes or lesions. Denies IV drug use, has not used for several years per patient. She denies alcohol consumption. Related Data Home Medications Medication Instructions Recorded Confirmed methadone 10 mg/5 mL oral solution 110 mg PO QAM 11/16/21 07/26/22 cyclobenzaprine 10 mg tablet 10 mg PO BID #180 tabs 04/19/22 07/26/22 trazodone 100 mg tablet 100 mg PO HS #90 tabs 05/13/22 07/26/22 acetaminophen 325 mg capsule 650 mg PO Q6H PRN 06/07/22 07/26/22 naloxegol 12.5 mg tablet 12.5 mg PO QAM #60 tabs 06/07/22 07/26/22 polyethylene glycol 3350 17 gram 17 g PO DAILY 06/07/22 07/26/22 oral powder packet (Miralax) calcitriol 0.5 mcg capsule 0.5 mcg PO BID #360 caps 06/14/22 07/26/22 calcium carbonate 200 mg calcium 1,000 mg PO BID #0 tabs 06/14/22 07/26/22 (500 mg) chewable tablet (Tums) potassium chloride 20 mEq 20 meq PO DAILY #7 tabs 07/04/22 07/26/22 tablet,extended release (K-Tab) magnesium gluconate 27 mg 27 mg PO BID #30 tabs 07/17/22 07/26/22 magnesium (500 mg) tablet fluoxetine 20 mg capsule 60 mg PO DAILY #270 caps 07/18/22 07/26/22 gabapentin 800 mg tablet 800 mg PO TID #270 tabs 07/18/22 07/26/22 clonazepam 1 mg tablet 0.5 mg PO BID 07/26/22 07/26/22 Previous Rx's Medication Instructions Recorded cyclobenzaprine 10 mg tablet 10 mg PO BID #180 tabs 04/19/22 trazodone 100 mg tablet 100 mg PO HS #90 tabs 05/13/22 naloxegol 12.5 mg tablet 12.5 mg PO QAM #60 tabs 06/07/22 calcitriol 0.5 mcg capsule 0.5 mcg PO BID #360 caps 06/14/22 calcium carbonate 200 mg calcium 1,000 mg PO BID #0 tabs 06/14/22 (500 mg) chewable tablet (Tums) potassium chloride 20 mEq 20 meq PO DAILY #7 tabs 07/04/22 tablet,extended release (K-Tab) magnesium gluconate 27 mg 27 mg PO BID #30 tabs 07/17/22 magnesium (500 mg) tablet fluoxetine 20 mg capsule 60 mg PO DAILY #270 caps 07/18/22 gabapentin 800 mg tablet 800 mg PO TID #270 tabs 07/18/22 Allergies Allergy/AdvReac Type Severity Reaction Status Date / Time codeine Allergy Intermediate Verified 07/26/22 11:43 amoxicillin AdvReac Intermediate Nausea Verified 07/26/22 11:43 General Stated Complaint: GenMedical ADRIANA: 3 PFSH All Active Problems (Updated 07/30/22 @ 23:49 by ANDREW Arriaga) Headache (Acute) Medication reaction (Acute) Anxiety (Chronic) Hematuria (Acute) Costochondritis (Acute) Pain, dental (Acute) Acute viral syndrome (Acute) Chronic renal disease (Chronic) Pulmonary nodule 1 cm or greater in diameter (Acute) Heart palpitations (Acute) Acute hypokalemia (Acute) Lesion of tongue (Acute) Tingling (Acute) Hypomagnesemia (Acute) Phlebitis (Acute) Back pain (Acute) Therapeutic opioid induced constipation (Acute) Sphincter of Oddi dysfunction (Acute) Abnormal CT scan, kidney (Acute) Intrahepatic bile duct dilation (Acute) Common bile duct dilatation (Acute) Abdominal pain (Acute) Iatrogenic hypocalcemia (Acute) Multiple endocrine neoplasia type I (Chronic) Chronic constipation (Chronic) Primary hyperparathyroidism (Chronic) Depression (Chronic) Hypocalcemia (Chronic) Hypomagnesemia (Chronic) Depression (Chronic) Suicidal ideation (Acute) Elevated parathyroid hormone (Acute) Family history of coronary arteriosclerosis (Chronic) Father of [place] at 50, mother had [place] at 42 Severe anxiety with panic (Acute) Cellulitis (Acute) Medical History Anxiety Depression Family history of multiple endocrine neoplasia, type 1 Hyperlipidemia Hypocalcemia PTSD (post-traumatic stress disorder) Surgical History H/O parathyroidectomy Family History Mother Anxiety Asthma Depression Sister Anxiety Depression Father Cancer lung & stomach Depression Diabetes Hypertension MEN 1 (multiple endocrine neoplasia) Social History Smoking/Tobacco Use Status: Never Smoking risk assessment performed?: Yes Alcohol Intake: never Drug 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 Adopted: No Caregiver/Support person: No Foster care: No Household members: none Housing: house Number of Children: 0 Communication Needs: None Education Level: high school Do you need help understanding health information?: Never 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 and animals: Yes (Ally) Pets and animals: dog(s) Sexually active: No Do you think of yourself as: straight/heterosexual Current gender identity: male What is your relationship status?: How often do you talk on the phone with friends or family?: twice per week How often do you get together with friends or relatives?: never Do you belong to any clubs or organized social groups?: no Panel score (0-1 are the most socially isolated patients): 0 What type of physical activity do you participate in: walking Duration: 15-30 minutes/day Frequency: 5-6 times per week Maryam/Denominational: Temple Special maryam needs: No Seatbelt use: always Helmet use: Yes Helmet use: always Drive 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 Exam Const General: cooperative, comfortable and no acute distress Neck Other: No meningismus Cardio Rate: regular rate Rhythm: regular rhythm GI Inspection: normal to inspection Auscultation: normal bowel sounds Skin General skin exam: no rashes or lesions noted Neuro General: patient alert and patient oriented x3 Cranial Nerves: CN's II-XI intact bilaterally and tongue midline Extrem General: normal to inspection Psych Appearance: grossly normal Course Vital Signs Vital signs: Vital Signs Temperature 37.0 C 07/30/22 21:16 Temperature 37.3 C 07/30/22 21:57 Temperature Source Oral 07/30/22 21:57 Pulse 69 07/30/22 21:57 Respiratory Rate 16 07/30/22 21:57 Blood Pressure 145/65 H 07/30/22 21:57 Pulse Oximetry 97 07/30/22 21:57 Oxygen Delivery Method Room Air 07/30/22 21:57 Oxygen Flow Rate 0 07/30/22 21:57
[2022-07-30 22:13] LABS: Bilirubin Negative (Negative); Blood Negative (Negative); Clarity Clear (Clear); Glucose Negative (Negative); Ketones Negative (Negative); Leukocyte Esterase Negative (Negative); Nitrite Negative (Negative); Urobilinogen 0.2 EU/dL (Up TO 0.2)
[2022-07-30 22:30] LABS: Abs Immature Grans 0.01 10^3/uL (0.0-0.06); Absolute Basophil Count 0.03 10^3/uL (0.0-0.2); Absolute Lymphocyte Count 2.04 10^3/uL (1.2-3.4); Absolute Monocyte Count 0.69 10^3/uL (0.1-0.8); Absolute Neutrophil Count 3.85 10^3/uL (1.2-6.7); Basophils % 0.4; Eosinophils % 2.9; HCT 31.8 % (40.0-50.0); HGB 11.1 g/dL (13.5-17.5); Immature Grans % 0.1; Lymphocytes % 29.9; MCH 31.1 pg (27.0-33.0); MCHC 34.9 % (32.0-36.0); MCV 89 fL (80-95); MPV 10.3 fL (8.0-11.0); Monocytes % 10.1; Neutrophils % 56.6; Platelet Count 288 10^3/uL (130-400); RBC 3.57 10^6/uL (4.36-5.78); RDW 11.5 % (11.8-14.1); RDW-SD 37.7 fL; WBC 6.82 10^3/uL (4.4-10.8)
[2022-07-30 22:44] LABS: ALT 83 U/L (16-63); AST 65 U/L (15-37); Albumin 3.4 g/dL (3.4-5.0); Alkaline Phosphatase 90 U/L (46-116); Anion Gap 3.7 mmol/L (3-11); BUN 21 mg/dL (7-18); Bilirubin, Total 0.1 mg/dL (0.2-1.0); CO2 34.3 mmol/L (21.0-32.0); CREATININE 2.1 mg/dL (0.70-1.30); Chloride 97 mmol/L (98-107); Estimated GFR 43.16 (mL/min/1.73m2); Glucose 87 mg/dL (74-106); Lipase 18 U/L (16-77); Potassium 3.6 mmol/L (3.5-5.1); Sodium 135 mmol/L (136-145); Total Protein 7.3 g/dL (6.4-8.2)
[2022-07-30 23:06] LABS: COVID-19 PCR Negative (Negative); Influenza A PCR Negative (Negative); Influenza B PCR Negative (Negative); RSV PCR Negative (Negative); Source Nasopharynx
--- NOTE | 2022-07-30 23:35 | DI.VRAD_ITS ---
PROCEDURE INFORMATION: Exam: XR Chest Exam date and time: 07/30/2022 10:55 PM Age: 26 years old Clinical indication: Fever TECHNIQUE: Imaging protocol: Radiologic exam of the chest. Views: 2 views. COMPARISON: CR XR PORTABLE CHEST AP 07/17/2022 8:48 AM FINDINGS: Lungs: Lungs are adequately inflated and symmetric. No focal consolidation or pulmonary edema. Pleural spaces: No pleural effusion. No pneumothorax. Heart/Mediastinum: Cardiomediastinal contours within normal limits. Bones/joints: No acute osseous finding. IMPRESSION: No focal consolidation. Dictated and Authenticated by: Hayden Long MD. Ordering:JOYCE Arvizu MD
[2022-07-30] MEDS: Orphenadrine 60 MG/2 ML VIAL IM (23:51)
[2022-07-31 00:12] VITALS: BP 126/82; PULSE 86; RESP 16; TEMP 37.2; O2SAT 96
== END 2022-07-31 00:14 | disposition home or self-care (01) ==
PROVIDERS: Emergency Provider Physician Assistant; PCP Family Medicine
DX: B34.9 Viral infection, unspecified (principal); N18.9 Chronic kidney disease, unspecified; Z20.822 Contact with and (suspected) exposure to COVID-19
CPT/HCPCS: 36415; 80053; 83690; 87637; 96372; 99284; J2360; 71046; 81003; 85025

== ENCOUNTER 2022-08-09 08:41 | Emergency (ER) | payer OTHER, SELFPAY ==
--- NOTE | 2022-08-09 08:30 | RT.EKG_ITS ---
APPROVED REPORT Exam: Resting ECG Reason for Exam: Chest Heaviness Patient Location: E HR:88 bpm ECG Measurements Heart Rate 88 AXIS [place] 137 P 63 QRSd 97 QRS 57 QT 382 T 34 QTc 462 Conclusion Sinus rhythm...normal P axis, V-rate 60- 99 I have reviewed and interpreted ECG and agree with software generated interpretation.
[2022-08-09 08:45] VITALS: BP 156/83; PULSE 105; O2SAT 100
--- NOTE | 2022-08-09 08:56 | ED.GENADUL_ITS ---
Discharge Plan Disposition Patient Disposition: Home Condition: Good Discharge Details Clinical Impression: Cough, Bronchitis, Breast lesion Primary Care Provider: Brendon Vivar ED Provider: Richy Eagle Home Meds and New Rx's Prescriptions: New benzonatate 100 mg capsule 100 mg PO TID Qty: 30 0RF azithromycin 250 mg tablet See Rx Instructions .ROUTE .COMPLEX Qty: 6 0RF Rx Instructions: For 250 mg dose pack: take 500 mg today (day 1), then 250 mg for 4 days (days 2-5) Continued cyclobenzaprine 10 mg tablet 10 mg PO BID Qty: 180 3RF trazodone 100 mg tablet 100 mg PO HS Qty: 90 3RF acetaminophen 325 mg capsule 650 mg PO Q6H PRN polyethylene glycol 3350 [Miralax] 17 gram powder in packet 17 g PO DAILY naloxegol 12.5 mg tablet 12.5 mg PO QAM Qty: 60 0RF Rx Instructions: must be taken on empty stomach; no food 1 hr after or 2-3 hrs before dose fluoxetine 20 mg capsule 60 mg PO DAILY Qty: 270 3RF gabapentin 800 mg tablet 800 mg PO TID Qty: 270 2RF methadone 10 mg/5 mL solution 110 mg PO QAM calcium carbonate [Tums] 200 mg calcium (500 mg) tablet,chewable 1,000 mg PO BID Qty: 0 0RF Hold Instructions: Resume on 06/15/22. calcitriol 0.5 mcg capsule 0.5 mcg PO BID Qty: 360 3RF Hold Instructions: Resume on 06/15/22. clonazepam 1 mg tablet 0.5 mg PO BID potassium chloride [K-Tab] 20 mEq tablet extended release 20 meq PO DAILY Qty: 7 0RF magnesium gluconate 27 mg magnesium (500 mg) tablet 27 mg PO BID Qty: 30 0RF Discharge Instructions Instructions: Acute Bronchitis (ED) Additional Instructions: At this time your symptoms appear consistent with mild bronchitis. On the ultrasound there may be a very very early developing pneumonia on the left. If you do not have any improvement over the next 48 hours with the Tessalon Perles, please take the antibiotic as directed. I will contact you if your flu/COVID/RSV comes back positive. We have placed a surgical referral for the lesion in your breast, please follow-up closely with surgery for reassessment when they contact you for the appointment time. If you notice any worsening of your symptoms, or any new symptoms such as vomiting, diarrhea, fever, chills, shortness of breath, chest pain, numbness, weakness, or fainting , please return immediately to the emergency department for reevaluation. Please follow up with your primary care provider as soon as possible for reassessment and reevaluation. As always, it was a pleasure participating in your medical care today. Referrals: Brendon Vivar DO [Primary Care Provider] - Issac Pulido MD [ [facility] STAFF PHYSICIAN] - Chanell Porter DO [OSTEOPATHIC DOCTOR] - Medical Decision Making This is a 26-year-old male with a past medical history significant for anxiety, high cholesterol, men type I, multiple electrolyte abnormalities with subsequent parathyroidectomy on 03/26/2022 at [facility], PTSD, and multiple subsequent visits here in the emergency department for highly fluctuant electrolyte levels as well as chronic abdominal pain.? Patient presents today for evaluation of cough for the last week. He denies any fever or chills. He states that the cough is dry and persistent. He denies any severe chest pain except for a mild achy sensation under his left nipple. He denies any numbness tingling or weakness. He denies any vomiting or diarrhea. No other complaints at this time. No other modifying factors. Additionally he has noticed that there is a small lesion under his left breast/nipple. He states that has been growing over the last few weeks. He does have a family history positive for breast cancer from his father at the age of 50. Exam demonstrates a well-appearing male, left breast demonstrates a small lesion under the nipple. No redness. No fluid collection on bedside ultrasound. Lungs are clear, however bedside ultrasound does show a very small amount of air bronchograms and streaking in the left midlung field. Concern for bronchitis versus early pneumonia. We will place a surgical referral for his breast lesion. We will give azithromycin for antibacterial treatment, and Tessalon Perles for cough suppressant. Patient otherwise stable and appropriate for discharge home. EKG is benign. I have extensively reviewed the treatment plan and discharge instructions with the patient. I have addressed all patient concerns at this time. The patient was made aware of what symptoms to monitor for that would warrant a return to the emergency department. Discussed the plan with the patient, they demonstrate verbal understanding and agreement with our assessment and plan at this time. The documentation in this chart was dictated using [employer] dictation software. Please excuse any dictation errors. COVID, flu, RSV are negative HPI General Date/Time Provider Initiated Documentation: 08/09/22 08:42 . HPI Narrative: This is a 26-year-old male with a past medical history significant for anxiety, high cholesterol, men type I, multiple electrolyte abnormalities with subsequent parathyroidectomy on 03/26/2022 at [facility], PTSD, and multiple subsequent visits here in the emergency department for highly fluctuant electrolyte levels as well as chronic abdominal pain.? Patient presents today for evaluation of cough for the last week. He denies any fever or chills. He states that the cough is dry and persistent. He denies any severe chest pain except for a mild achy sensation under his left nipple. He denies any numbness tingling or weakness. He denies any vomiting or diarrhea. No other complaints at this time. No other modifying factors. Additionally he has noticed that there is a small lesion under his left breast/nipple. He states that has been growing over the last few weeks. He does have a family history positive for breast cancer from his father at the age of 50. Related Data Home Medications Medication Instructions Recorded Confirmed methadone 10 mg/5 mL oral solution 110 mg PO QAM 11/16/21 08/09/22 cyclobenzaprine 10 mg tablet 10 mg PO BID #180 tabs 04/19/22 08/09/22 trazodone 100 mg tablet 100 mg PO HS #90 tabs 05/13/22 08/09/22 acetaminophen 325 mg capsule 650 mg PO Q6H PRN 06/07/22 08/09/22 naloxegol 12.5 mg tablet 12.5 mg PO QAM #60 tabs 06/07/22 08/09/22 polyethylene glycol 3350 17 gram 17 g PO DAILY 06/07/22 08/09/22 oral powder packet (Miralax) calcitriol 0.5 mcg capsule 0.5 mcg PO BID #360 caps 06/14/22 08/09/22 calcium carbonate 200 mg calcium 1,000 mg PO BID #0 tabs 06/14/22 08/09/22 (500 mg) chewable tablet (Tums) potassium chloride 20 mEq 20 meq PO DAILY #7 tabs 07/04/22 08/09/22 tablet,extended release (K-Tab) magnesium gluconate 27 mg 27 mg PO BID #30 tabs 07/17/22 08/09/22 magnesium (500 mg) tablet fluoxetine 20 mg capsule 60 mg PO DAILY #270 caps 07/18/22 08/09/22 gabapentin 800 mg tablet 800 mg PO TID #270 tabs 07/18/22 08/09/22 clonazepam 1 mg tablet 0.5 mg PO BID 07/26/22 08/09/22 azithromycin 250 mg tablet See Rx Instructions PO .COMPLEX #6 08/09/22 tabs benzonatate 100 mg capsule 100 mg PO TID #30 caps 08/09/22 Previous Rx's Medication Instructions Recorded cyclobenzaprine 10 mg tablet 10 mg PO BID #180 tabs 04/19/22 trazodone 100 mg tablet 100 mg PO HS #90 tabs 05/13/22 naloxegol 12.5 mg tablet 12.5 mg PO QAM #60 tabs 06/07/22 calcitriol 0.5 mcg capsule 0.5 mcg PO BID #360 caps 06/14/22 calcium carbonate 200 mg calcium 1,000 mg PO BID #0 tabs 06/14/22 (500 mg) chewable tablet (Tums) potassium chloride 20 mEq 20 meq PO DAILY #7 tabs 07/04/22 tablet,extended release (K-Tab) magnesium gluconate 27 mg 27 mg PO BID #30 tabs 07/17/22 magnesium (500 mg) tablet fluoxetine 20 mg capsule 60 mg PO DAILY #270 caps 07/18/22 gabapentin 800 mg tablet 800 mg PO TID #270 tabs 07/18/22 azithromycin 250 mg tablet See Rx Instructions PO .COMPLEX #6 08/09/22 tabs benzonatate 100 mg capsule 100 mg PO TID #30 caps 08/09/22 Allergies Allergy/AdvReac Type Severity Reaction Status Date / Time codeine Allergy Intermediate Verified 08/09/22 08:47 amoxicillin AdvReac Intermediate Nausea Verified 08/09/22 08:47 General Stated Complaint: Chest Pain ADRIANA: 3 Review of Systems All systems reviewed & are unremarkable except as noted in HPI and below PFSH All Active Problems Headache (Acute) Medication reaction (Acute) Anxiety (Chronic) Hematuria (Acute) Costochondritis (Acute) Pain, dental (Acute) Acute viral syndrome (Acute) Chronic renal disease (Chronic) Cough (Acute) Bronchitis (Acute) Breast lesion (Acute) Pulmonary nodule 1 cm or greater in diameter (Acute) Lesion of tongue (Acute) Tingling (Acute) Hypomagnesemia (Acute) Phlebitis (Acute) Back pain (Acute) Therapeutic opioid induced constipation (Acute) Sphincter of Oddi dysfunction (Acute) Abnormal CT scan, kidney (Acute) Intrahepatic bile duct dilation (Acute) Common bile duct dilatation (Acute) Abdominal pain (Acute) Iatrogenic hypocalcemia (Acute) Multiple endocrine neoplasia type I (Chronic) Chronic constipation (Chronic) Primary hyperparathyroidism (Chronic) Depression (Chronic) Hypocalcemia (Chronic) Hypomagnesemia (Chronic) Depression (Chronic) Suicidal ideation (Acute) Elevated parathyroid hormone (Acute) Family history of coronary arteriosclerosis (Chronic) Father of [place] at 50, mother had [place] at 42 Severe anxiety with panic (Acute) Cellulitis (Acute) Medical History Anxiety Depression Family history of multiple endocrine neoplasia, type 1 Hyperlipidemia Hypocalcemia PTSD (post-traumatic stress disorder) Surgical History H/O parathyroidectomy Family History Mother Anxiety Asthma Depression Sister Anxiety Depression Father Cancer lung & stomach Depression Diabetes Hypertension MEN 1 (multiple endocrine neoplasia) Social History Smoking/Tobacco Use Status: Never Smoking risk assessment performed?: Yes Alcohol Intake: never Drug 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 Adopted: No Caregiver/Support person: No Foster care: No Household members: none Housing: house Number of Children: 0 Communication Needs: None Education Level: high school Do you need help understanding health information?: Never 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 and animals: Yes (Ally) Pets and animals: dog(s) Sexually active: No Do you think of yourself as: straight/heterosexual Current gender identity: male What is your relationship status?: How often do you talk on the phone with friends or family?: twice per week How often do you get together with friends or relatives?: never Do you belong to any clubs or organized social groups?: no Panel score (0-1 are the most socially isolated patients): 0 What type of physical activity do you participate in: walking Duration: 15-30 minutes/day Frequency: 5-6 times per week Maryam/Buddhist: Episcopalian Special maryam needs: No Seatbelt use: always Helmet use: Yes Helmet use: always Drive 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 automation 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 Exam Narrative Exam Narrative: 1.Const: Well-nourished, Well-developed, appearing stated age 2.Eyes: PERRL, no conjunctival injection, and symmetrical lids. 3.ENT: Atraumatic external nose and ears. Moist MM. Neck: Symmetric, trachea midline, No thyromegaly. 4.CVS: +S1/S2, No murmurs or gallops. Peripheral pulses 2+ and equal in all extremities. Brisk capillary refill in all extremities. Left breast demonstrates a small lesion directly internal to the left nipple. On palpation it appears to be oblong, roughly 2 cm in lateral width, and 1 cm in vertical width. It is not fluctuant. Bedside ultrasound shows no evidence of fluid collection. 5.RESP: Unlabored respiratory effort. Clear to auscultation bilaterally. No wheezes rales or rhonchi 6.GI: Soft, Nontender/Nondistended, No hepatosplenomegaly. No guarding or rebound. 7.MSK: Normocephalic/Atraumatic, Extremities w/o deformity or ttp No cyanosis or clubbing, Normal movement of all extremities 8.Skin: Warm, Dry. No rashes or lesions. 9.Neuro: visual merchandising specialist II-XII grossly intact. Sensation grossly intact, no focal neurologic deficits. 10.Psych: (AAO) x3. Appropriate mood and affect Course Vital Signs Vital signs: Vital Signs Pulse 105 H 08/09/22 08:45 Blood Pressure 156/83 H 08/09/22 08:45 Pulse Oximetry 100 08/09/22 08:45 Pulse 105 H 08/09/22 08:45 Respiratory Effort Normal, Non-Labored 08/09/22 08:47 Blood Pressure 156/83 H 08/09/22 08:45 Blood Pressure Position Sitting 08/09/22 08:45 Pulse Oximetry 100 08/09/22 08:45 Oxygen Delivery Method Room Air 08/09/22 08:45 Oxygen Flow Rate 0 08/09/22 08:45 POCUS Exam (ED) Limited Thoracic Lung Exam DATE OF EXAM: 08/09/22 TIME OF EXAM: 09:07 PROVIDER THAT PERFORMED THE STUDY: Richy Eagle IS THIS A REPEAT EXAM DURING THIS ENCOUNTER: No REASON FOR EXAM: Pneumonia VISUALIZED STRUCTURES: right lateral, left lateral, right posterior and left posterior PERTINENT FINDINGS/IMPRESSION: B-lines/left side Exam complete
--- NOTE | 2022-08-09 09:00 | NUR.NOTE ---
Nursing Note: PT info faxed to Surgery for follow up in a month for a breast lesion, Pt has family Hx of breast cancer. [facility]
[2022-08-09 09:40] LABS: COVID-19 PCR Negative (Negative); Influenza A PCR Negative (Negative); Influenza B PCR Negative (Negative); RSV PCR Negative (Negative)
[2022-08-09 09:43] LABS: Source Nasopharynx
[2022-08-09 09:46] VITALS: RESP 18
== END 2022-08-09 09:06 | disposition home or self-care (01) ==
PROVIDERS: Emergency Provider Student in an Organized Health Care Education/Training Program; PCP Family Medicine
DX: R05.1 Acute cough (principal); J20.9 Acute bronchitis, unspecified; L98.8 Other specified disorders of the skin and subcutaneous tissue; R07.89 Other chest pain; Z20.822 Contact with and (suspected) exposure to COVID-19
CPT/HCPCS: 76604; 87637; 93005; 99284; 93010

== ENCOUNTER 2022-08-11 00:45 | Emergency (ER) | payer OTHER, SELFPAY ==
--- NOTE | 2022-08-11 00:45 | RT.EKG_ITS ---
APPROVED REPORT Exam: Resting ECG Reason for Exam: chest pain Patient Location: E HR:103 bpm ECG Measurements Heart Rate 103 AXIS [place] 189 P 47 QRSd 97 QRS 40 QT 358 T 24 QTc 468 Conclusion Sinus tachycardia...rate> 99. Sinus. Normal axis. No STEMI. I have reviewed and interpreted ECG and agree with software generated interpretation.
[2022-08-11 00:48] VITALS: BP 144/98; PULSE 98; RESP 18; TEMP 36.7; O2SAT 97
--- NOTE | 2022-08-11 00:54 | W.ED.GENAD ---
Discharge Plan Disposition Patient Disposition: Home Condition: Stable Discharge Details Clinical Impression: Back pain, Epigastric abdominal pain, Urinary hesitancy Primary Care Provider: Brendon Vivar ED Provider: Breonna Bates Home Meds and New Rx's Prescriptions: Continued cyclobenzaprine 10 mg tablet 10 mg PO BID Qty: 180 3RF trazodone 100 mg tablet 100 mg PO HS Qty: 90 3RF acetaminophen 325 mg capsule 650 mg PO Q6H PRN polyethylene glycol 3350 [Miralax] 17 gram powder in packet 17 g PO DAILY naloxegol 12.5 mg tablet 12.5 mg PO QAM Qty: 60 0RF Rx Instructions: must be taken on empty stomach; no food 1 hr after or 2-3 hrs before dose fluoxetine 20 mg capsule 60 mg PO DAILY Qty: 270 3RF gabapentin 800 mg tablet 800 mg PO TID Qty: 270 2RF methadone 10 mg/5 mL solution 110 mg PO QAM calcium carbonate [Tums] 200 mg calcium (500 mg) tablet,chewable 1,000 mg PO BID Qty: 0 0RF Hold Instructions: Resume on 06/15/22. calcitriol 0.5 mcg capsule 0.5 mcg PO BID Qty: 360 3RF Hold Instructions: Resume on 06/15/22. clonazepam 1 mg tablet 0.5 mg PO BID potassium chloride [K-Tab] 20 mEq tablet extended release 20 meq PO DAILY Qty: 7 0RF magnesium gluconate 27 mg magnesium (500 mg) tablet 27 mg PO BID Qty: 30 0RF benzonatate 100 mg capsule 100 mg PO TID Qty: 30 0RF azithromycin 250 mg tablet See Rx Instructions .ROUTE .COMPLEX Qty: 6 0RF Rx Instructions: For 250 mg dose pack: take 500 mg today (day 1), then 250 mg for 4 days (days 2-5) Discharge Instructions Instructions: Back Pain (ED), Epigastric Pain (ED) Additional Instructions: Your blood tests and imaging today are reassuring and show no evidence of acute concerning findings. Your potassium and magnesium were slightly low and you were given supplementation in the emergency department. You have been placed on urology follow-up list for your urinary hesitancy. Drink plenty of fluids and get plenty of rest. Start taking an [id number] Prilosec once daily as directed for the next 2 weeks. Follow-up with your primary care doctor in 1 week. Return to the emergency department with any worsening or new concerning symptoms. Referrals: Lester Casper MD [ [facility] STAFF PHYSICIAN] - Discharge Data Discharge Physician: Breonna Bates Medical Decision Making 005 -- 26-year-old male with a history of anxiety, depression, hyperlipidemia, PTSD and multiple endocrine neoplasia with history of parathyroidectomy who is well-known to the emergency department with multiple frequent visits presents with lower back pain since yesterday, epigastric pain since last night, and difficulty urinating for 2 months. EKG notes a rate of 103, sinus, normal axis, no STEMI and nondiagnostic. Patient appears at his baseline. He is well-known to the emergency department. This is his 69th visit to the emergency department in the last year. His back is normal to inspection. His abdomen is soft and nontender. Differential diagnosis includes GERD, gastritis, cholelithiasis, cholecystitis, UTI, pyelonephritis. History and presentation does not appear consistent with ACS, PE or dissection. 0300 --Labs and imaging reviewed. White blood cell count normal at 9. Potassium 3.2 and magnesium 1.7, will replete. Troponin within normal limits. Lipase within normal limits. D-dimer within normal limits. Urinalysis negative for infection. CT chest abdomen pelvis negative for acute findings. Patient reassessed and he feels much better and feels comfortable going home. Patient placed on urology follow-up was for urinary hesitancy. Advised to start taking a daily Prilosec for 2 weeks. Advised to follow up with the primary care doctor for re-evaluation. Usual and customary return precautions given prior to discharge. Medical Records Medical records reviewed: Yes I reviewed the patient's medical records. Imaging Data Radiologic Study: Radiologist's impression: XR Chest Exam date and time: 08/11/2022 1:36 AM Age: 26 years old Clinical indication: Pain; Chest pressure TECHNIQUE: Imaging protocol: Radiologic exam of the chest. Views: 2 views. COMPARISON: CR XR CHEST 2V PA LATERAL 07/30/2022 10:55 PM FINDINGS: Lungs:? No infiltrates. No no edema.? Pleural spaces: Unremarkable. No pleural effusion. No pneumothorax. Heart/Mediastinum: Unremarkable. No cardiomegaly. Bones/joints: Unremarkable. IMPRESSION: 1. ? No acute findings. CTA Chest With Contrast Exam date and time: 08/11/2022 2:10 AM Age: 26 years old Clinical indication: Abdominal pain; Flank; Left; Chest pressure TECHNIQUE: Imaging protocol: Computed tomographic angiography of the chest with contrast. 3D rendering (Not supervised by radiologist): MIP and/or 3D reconstructed images were created by the technologist. Contrast material: OMNIPAQUE 350; Contrast volume: 81 ml; Contrast route: INTRAVENOUS (IV);? COMPARISON: CT CHEST PE CTA 06/28/2022 10:41 AM FINDINGS: Pulmonary arteries: Normal. No pulmonary emboli. Aorta: Unremarkable. No aortic aneurysm. No aortic dissection. Lungs: Unremarkable. No consolidation. No masses. Pleural spaces: Unremarkable. No pneumothorax. No pleural effusion. Heart: Unremarkable. No cardiomegaly. No pericardial effusion. Lymph nodes: Unremarkable. No enlarged lymph nodes. Bones/joints: Unremarkable. No acute fracture. Soft tissues: Unremarkable. IMPRESSION: No acute findings. CT Abdomen And Pelvis With Contrast Exam date and time: 08/11/2022 2:10 AM Age: 26 years old Clinical indication: Abdominal pain; Flank; Left; Chest pressure TECHNIQUE: Imaging protocol: Computed tomography of the abdomen and pelvis with contrast. Contrast material: OMNIPAQUE 350; Contrast volume: 81 ml; Contrast route: INTRAVENOUS (IV);? COMPARISON: CT ABDOMEN PELVIS W 05/18/2022 7:40 PM FINDINGS: Liver: Normal. No mass. Gallbladder and bile ducts: Normal. No calcified stones. No ductal dilation. Pancreas: Normal. No ductal dilation. Spleen: Normal. No splenomegaly. Adrenal glands: Normal. No mass. Kidneys and ureters: Normal. No hydronephrosis. Stomach and bowel: Unremarkable. No obstruction. No mucosal thickening. Appendix: No evidence of appendicitis. Intraperitoneal space: Unremarkable. No free air. No significant fluid collection. Vasculature: Unremarkable. No abdominal aortic aneurysm. Lymph nodes: Unremarkable. No enlarged lymph nodes. Urinary bladder: Unremarkable as visualized. Reproductive: Unremarkable as visualized. Bones/joints: Unremarkable. No acute fracture. Soft tissues: Unremarkable. IMPRESSION: No acute findings. Lab Data Lab results reviewed: Yes I reviewed the patient's lab results. Labs: Laboratory Tests Range/Units 08/11/22 08/11/22 08/11/22 01:00 01:00 01:00 WBC (4.4-10.8) 10^3/uL 9.76 RBC (4.36-5.78) 10^6/uL 3.69 L Hgb (13.5-17.5) g/dL 11.5 L Hct (40.0-50.0) % 32.9 L MCV (80-95) fL 89 MCH (27.0-33.0) pg 31.2 MCHC (32.0-36.0) % 35.0 RDW (11.8-14.1) % 11.5 L Plt Count (130-400) 10^3/uL 319 MPV (8.0-11.0) fL 10.5 Immature Gran % 0.3 Neutrophils % 57.1 Lymphocytes % 29.2 Monocytes % 10.6 Eosinophils % 2.2 Basophils % 0.6 Nucleated RBC % (0.0-0.3) % 0.0 Absolute Neutrophils (1.2-6.7) 10^3/uL 5.58 Absolute Lymphocytes (1.2-3.4) 10^3/uL 2.85 Absolute Monocytes (0.1-0.8) 10^3/uL 1.03 H Absolute Eosinophils (0.0-0.7) 10^3/uL 0.21 Absolute Basophils (0.0-0.2) 10^3/uL 0.06 D-Dimer (<500) ng/mlFEU Sodium (136-145) mmol/L 139 Potassium (3.5-5.1) mmol/L 3.2 L Chloride (98-107) mmol/L 99 Carbon Dioxide (21.0-32.0) mmol/L 33.2 H Anion Gap (3-11) mmol/L 6.8 BUN (7-18) mg/dL 19 H Creatinine (0.70-1.30) mg/dL 1.5 H Est GFR (CKD-EPI 2020) (mL/min/1.73m2) 64.63 Glucose (74-106) mg/dL 110 H Calcium (8.5-10.1) mg/dL 8.8 Magnesium (1.8-2.4) mg/dL 1.7 L Total Bilirubin (0.2-1.0) mg/dL 0.3 AST (15-37) U/L 24 ALT (16-63) U/L 37 Alkaline Phosphatase (46-116) U/L 97 Troponin I (<or=60) ng/L < 50 Total Protein (6.4-8.2) g/dL 7.6 Albumin (3.4-5.0) g/dL 3.5 Lipase (16-77) U/L 21 Urine Color (Yellow) Yellow Urine Clarity (Clear) Clear Urine pH (5-8) 6.0 Ur Specific [place] (1.005-1.025) 1.010 Urine Protein (Negative) mg/dL Negative Urine Ketones (Negative) mg/dL Negative Urine Blood (Negative) Negative Urine Nitrite (Negative) Negative Urine Bilirubin (Negative) Negative Urine Urobilinogen (Up to 0.2) mg/dL 0.2 Ur Leukocyte Esterase (Negative) Negative Urine Glucose (Negative) mg/dL Negative Range/Units 08/11/22 01:23 WBC (4.4-10.8) 10^3/uL RBC (4.36-5.78) 10^6/uL Hgb (13.5-17.5) g/dL Hct (40.0-50.0) % MCV (80-95) fL MCH (27.0-33.0) pg MCHC (32.0-36.0) % RDW (11.8-14.1) % Plt Count (130-400) 10^3/uL MPV (8.0-11.0) fL Immature Gran % Neutrophils % Lymphocytes % Monocytes % Eosinophils % Basophils % Nucleated RBC % (0.0-0.3) % Absolute Neutrophils (1.2-6.7) 10^3/uL Absolute Lymphocytes (1.2-3.4) 10^3/uL Absolute Monocytes (0.1-0.8) 10^3/uL Absolute Eosinophils (0.0-0.7) 10^3/uL Absolute Basophils (0.0-0.2) 10^3/uL D-Dimer (<500) ng/mlFEU 358 Sodium (136-145) mmol/L Potassium (3.5-5.1) mmol/L Chloride (98-107) mmol/L Carbon Dioxide (21.0-32.0) mmol/L Anion Gap (3-11) mmol/L BUN (7-18) mg/dL Creatinine (0.70-1.30) mg/dL Est GFR (CKD-EPI 2020) (mL/min/1.73m2) Glucose (74-106) mg/dL Calcium (8.5-10.1) mg/dL Magnesium (1.8-2.4) mg/dL Total Bilirubin (0.2-1.0) mg/dL AST (15-37) U/L ALT (16-63) U/L Alkaline Phosphatase (46-116) U/L Troponin I (<or=60) ng/L Total Protein (6.4-8.2) g/dL Albumin (3.4-5.0) g/dL Lipase (16-77) U/L Urine Color (Yellow) Urine Clarity (Clear) Urine pH (5-8) Ur Specific [place] (1.005-1.025) Urine Protein (Negative) mg/dL Urine Ketones (Negative) mg/dL Urine Blood (Negative) Urine Nitrite (Negative) Urine Bilirubin (Negative) Urine Urobilinogen (Up to 0.2) mg/dL Ur Leukocyte Esterase (Negative) Urine Glucose (Negative) mg/dL ECG Data Attestation: I personally reviewed and interpreted this ECG (s) as follows: Interpretation: Rate of 103, sinus, normal axis, no STEMI. HPI General Mode of arrival: ambulatory. Date/Time Provider Initiated Documentation: 08/11/22 00:50. Limitations to Documentation: no limitations. Information obtained by: patient. HPI Narrative: Patient is a 26-year-old male with a history of anxiety, depression, hyperlipidemia, PTSD and multiple endocrine neoplasia with history of parathyroidectomy who is well-known to the emergency department with multiple frequent visits presents with lower back pain since yesterday, epigastric pain since last night, and difficulty urinating for the past 2 months. Patient states since yesterday afternoon he has had burning pain across his lower back. He denies any radiation of pain, saddle anesthesia, bowel or bladder incontinence. He denies any known injury. He states since last night he has had sharp epigastric pain and throbbing Related Data Home Medications Medication Instructions Recorded Confirmed methadone 10 mg/5 mL oral solution 110 mg PO QAM 11/16/21 08/09/22 cyclobenzaprine 10 mg tablet 10 mg PO BID #180 tabs 04/19/22 08/09/22 trazodone 100 mg tablet 100 mg PO HS #90 tabs 05/13/22 08/09/22 acetaminophen 325 mg capsule 650 mg PO Q6H PRN 06/07/22 08/09/22 naloxegol 12.5 mg tablet 12.5 mg PO QAM #60 tabs 06/07/22 08/09/22 polyethylene glycol 3350 17 gram 17 g PO DAILY 06/07/22 08/09/22 oral powder packet (Miralax) calcitriol 0.5 mcg capsule 0.5 mcg PO BID #360 caps 06/14/22 08/09/22 calcium carbonate 200 mg calcium 1,000 mg PO BID #0 tabs 06/14/22 08/09/22 (500 mg) chewable tablet (Tums) potassium chloride 20 mEq 20 meq PO DAILY #7 tabs 07/04/22 08/09/22 tablet,extended release (K-Tab) magnesium gluconate 27 mg 27 mg PO BID #30 tabs 07/17/22 08/09/22 magnesium (500 mg) tablet fluoxetine 20 mg capsule 60 mg PO DAILY #270 caps 07/18/22 08/09/22 gabapentin 800 mg tablet 800 mg PO TID #270 tabs 07/18/22 08/09/22 clonazepam 1 mg tablet 0.5 mg PO BID 07/26/22 08/09/22 azithromycin 250 mg tablet See Rx Instructions PO .COMPLEX #6 08/09/22 tabs benzonatate 100 mg capsule 100 mg PO TID #30 caps 08/09/22 Previous Rx's Medication Instructions Recorded cyclobenzaprine 10 mg tablet 10 mg PO BID #180 tabs 04/19/22 trazodone 100 mg tablet 100 mg PO HS #90 tabs 05/13/22 naloxegol 12.5 mg tablet 12.5 mg PO QAM #60 tabs 06/07/22 calcitriol 0.5 mcg capsule 0.5 mcg PO BID #360 caps 06/14/22 calcium carbonate 200 mg calcium 1,000 mg PO BID #0 tabs 06/14/22 (500 mg) chewable tablet (Tums) potassium chloride 20 mEq 20 meq PO DAILY #7 tabs 07/04/22 tablet,extended release (K-Tab) magnesium gluconate 27 mg 27 mg PO BID #30 tabs 07/17/22 magnesium (500 mg) tablet fluoxetine 20 mg capsule 60 mg PO DAILY #270 caps 07/18/22 gabapentin 800 mg tablet 800 mg PO TID #270 tabs 07/18/22 azithromycin 250 mg tablet See Rx Instructions PO .COMPLEX #6 08/09/22 tabs benzonatate 100 mg capsule 100 mg PO TID #30 caps 08/09/22 Allergies Allergy/AdvReac Type Severity Reaction Status Date / Time codeine Allergy Intermediate Verified 08/09/22 08:47 amoxicillin AdvReac Intermediate Nausea Verified 08/09/22 08:47 General Stated Complaint: Nk/Back Pain ADRIANA: 3 Review of Systems All systems reviewed & are unremarkable except as noted in HPI and below Constitutional Constitutional: Reports as per HPI, Denies chills and Denies fever(s) Eyes Eyes: Denies blurry vision ENT Ears, Nose, Mouth, and Throat: Denies dizziness, Denies sore throat and Denies throat swelling Cardiovascular Cardiovascular: Denies chest pain and Denies dyspnea Respiratory Respiratory: Denies cough and Denies dyspnea Gastrointestinal Gastrointestinal: Reports abdominal pain, Denies diarrhea and Denies vomiting Genitourinary Genitourinary: Denies hematuria and Denies dysuria Musculoskeletal Musculoskeletal: Reports back pain and Denies numbness Integumentary/Breasts Skin/Breast: Denies lesions and Denies rash Neurologic Neurologic: Denies dizziness, Denies localized weakness and Denies numbness Allergic/Immunologic Allergic/Immunologic: Denies throat swelling PFSH All Active Problems (Updated 08/11/22 @ 03:19 by Breonna Bates DO) Headache (Acute) Medication reaction (Acute) Anxiety (Chronic) Hematuria (Acute) Costochondritis (Acute) Pain, dental (Acute) Acute viral syndrome (Acute) Chronic renal disease (Chronic) Cough (Acute) Bronchitis (Acute) Breast lesion (Acute) Back pain (Acute) Epigastric abdominal pain (Acute) Urinary hesitancy (Acute) Pulmonary nodule 1 cm or greater in diameter (Acute) Phlebitis (Acute) Back pain (Acute) Therapeutic opioid induced constipation (Acute) Sphincter of Oddi dysfunction (Acute) Abnormal CT scan, kidney (Acute) Intrahepatic bile duct dilation (Acute) Common bile duct dilatation (Acute) Abdominal pain (Acute) Iatrogenic hypocalcemia (Acute) Multiple endocrine neoplasia type I (Chronic) Chronic constipation (Chronic) Primary hyperparathyroidism (Chronic) Depression (Chronic) Hypocalcemia (Chronic) Hypomagnesemia (Chronic) Depression (Chronic) Suicidal ideation (Acute) Elevated parathyroid hormone (Acute) Family history of coronary arteriosclerosis (Chronic) Father of IA at 50, mother had IA at 42 Severe anxiety with panic (Acute) Cellulitis (Acute) Medical History Anxiety Depression Family history of multiple endocrine neoplasia, type 1 Hyperlipidemia Hypocalcemia PTSD (post-traumatic stress disorder) Surgical History H/O parathyroidectomy Family History Mother Anxiety Asthma Depression Sister Anxiety Depression Father Cancer lung & stomach Depression Diabetes Hypertension MEN 1 (multiple endocrine neoplasia) Social History Smoking/Tobacco Use Status: Never Smoking risk assessment performed?: Yes Alcohol Intake: never Drug 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 Adopted: No Caregiver/Support person: No Foster care: No Household members: none Housing: house Number of Children: 0 Communication Needs: None Education Level: high school Do you need help understanding health information?: Never 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 and animals: Yes (Ally) Pets and animals: dog(s) Sexually active: No Do you think of yourself as: straight/heterosexual Current gender identity: male What is your relationship status?: How often do you talk on the phone with friends or family?: twice per week How often do you get together with friends or relatives?: never Do you belong to any clubs or organized social groups?: no Panel score (0-1 are the most socially isolated patients): 0 What type of physical activity do you participate in: walking Duration: 15-30 minutes/day Frequency: 5-6 times per week Maryam/Christian: Anglican Special maryam needs: No Seatbelt use: always Helmet use: Yes Helmet use: always 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 Exam Const General: cooperative and anxious Orientation: alert, awake and oriented x3 HENMT Head: normal to inspection Face and sinus: normal facial exam Eyes General: appearance normal, both eyes and all related structures Pupils: PERRL EOM: EOM intact bilaterally Neck Neck: normal visual inspection and No submandibular swelling Lymphatic: no lymphadenopathy noted Chest Chest: normal inspection of the chest and no tenderness Resp Effort & Inspection: normal respiratory effort and able to speak in complete sentences Auscultation: clear to auscultation bilaterally Cardio Rate: regular rate Rhythm: regular rhythm GI Inspection: normal to inspection Palpation: soft, not firm, not rigid and nontender Auscultation: hypoactive bowel sounds Back/Spine/Pelvis Back: no CVA tenderness Thoracic/Lumbar Spine: thoracic and lumbar spine normal to inspection Pelvis: no pain with anterior-posterior compression Skin General skin exam: no rashes or lesions noted Neuro General: patient alert, patient awake and patient oriented x3 Cognition: normal cognition Speech: speech normal Motor: muscle tone normal throughout Sensory Exam: no sensory deficits noted Extrem General: normal to inspection, full ROM, capillary refill normal, no calf tenderness bilaterally and no edema Psych Appearance: grossly normal Mental Status: mental status grossly normal Speech and Movement: speech and movement normal Affect: normal affect Course Vital Signs Vital signs: Vital Signs Temperature 98.1 F 08/11/22 00:48 Pulse 98 H 08/11/22 00:48 Respiratory Rate 18 08/11/22 00:48 Blood Pressure 144/98 H 08/11/22 00:48 Pulse Oximetry 97 08/11/22 00:48 Temperature 98.1 F 08/11/22 00:48 Temperature Source Oral 08/11/22 00:48 Pulse 98 H 08/11/22 00:48 Respiratory Rate 18 08/11/22 00:48 Respiratory Effort Normal, Non-Labored 08/11/22 00:52 Blood Pressure 144/98 H 08/11/22 00:48 Blood Pressure Position Sitting 08/11/22 00:48 Pulse Oximetry 97 08/11/22 00:48 Oxygen Delivery Method Room Air 08/11/22 00:48 Oxygen Flow Rate 0 08/11/22 00:48 Pain Level 7 08/11/22 00:48
[2022-08-11 01:12] LABS: Abs Immature Grans 0.03 10^3/uL (0.0-0.06); Absolute Basophil Count 0.06 10^3/uL (0.0-0.2); Absolute Eosinophil Count 0.21 10^3/uL (0.0-0.7); Absolute Lymphocyte Count 2.85 10^3/uL (1.2-3.4); Absolute Monocyte Count 1.03 10^3/uL (0.1-0.8); Absolute Neutrophil Count 5.58 10^3/uL (1.2-6.7); Basophils % 0.6; Eosinophils % 2.2; HCT 32.9 % (40.0-50.0); HGB 11.5 g/dL (13.5-17.5); Immature Grans % 0.3; Lymphocytes % 29.2; MCH 31.2 pg (27.0-33.0); MCV 89 fL (80-95); MPV 10.5 fL (8.0-11.0); Monocytes % 10.6; Neutrophils % 57.1; Platelet Count 319 10^3/uL (130-400); RBC 3.69 10^6/uL (4.36-5.78); RDW 11.5 % (11.8-14.1); RDW-SD 37.2 fL; WBC 9.76 10^3/uL (4.4-10.8)
[2022-08-11 01:13] LABS: Bilirubin Negative (Negative); Blood Negative (Negative); Clarity Clear (Clear); Glucose Negative (Negative); Ketones Negative (Negative); Leukocyte Esterase Negative (Negative); Nitrite Negative (Negative); Urobilinogen 0.2 mg/dL (Up to 0.2)
--- NOTE | 2022-08-11 01:15 | DI.RAD_ITS ---
Exam(s) XR CHEST 2V PA LATERAL EXAM: XR CHEST 2V PA LATERAL CLINICAL HISTORY: sob, r/o acute disease TECHNIQUE: 2D digital imaging was performed of the chest. Two images were obtained. PA and lateral views were obtained. COMPARISON: CR,XR XR CHEST 2V PA LATERAL from 07/30/2022 FINDINGS: MEDIASTINUM: Normal. HEART: Normal. PULMONARY VASCULATURE: Normal. LUNGS: Clear. PLEURAL SPACE: No pleural effusion or pneumothorax. BONE:Within normal limits for the patient's age. OTHER FINDINGS:Normal. IMPRESSION: No acute pulmonary findings. DATA REPOSITORY: RADIATION DOSE DELIVERED:
[2022-08-11 01:28] LABS: ALT 37 U/L (16-63); AST 24 U/L (15-37); Albumin 3.5 g/dL (3.4-5.0); Alkaline Phosphatase 97 U/L (46-116); Anion Gap 6.8 mmol/L (3-11); BUN 19 mg/dL (7-18); Bilirubin, Total 0.3 mg/dL (0.2-1.0); CO2 33.2 mmol/L (21.0-32.0); CREATININE 1.5 mg/dL (0.70-1.30); Calcium 8.8 mg/dL (8.5-10.1); Chloride 99 mmol/L (98-107); Estimated GFR 64.63 (mL/min/1.73m2); Glucose 110 mg/dL (74-106); Lipase 21 U/L (16-77); Magnesium 1.7 mg/dL (1.8-2.4); Potassium 3.2 mmol/L (3.5-5.1); Sodium 139 mmol/L (136-145); Total Protein 7.6 g/dL (6.4-8.2)
[2022-08-11 01:32] LABS: Troponin I < 50 ng/L (<or=60)
[2022-08-11] MEDS: Famotidine 20 MG/2 ML VIAL IVP (01:43)
--- NOTE | 2022-08-11 01:45 | DI.CT_ITS ---
Exam(s) CT CHEST PE ABD PELVIS W EXAM: CT CHEST PE ABD PELVIS W CLINICAL HISTORY: SOB/epigastric/low back pain/diff urinating. TECHNIQUE: Imaging Protocol: Axial CT angiography was performed with multi-slice acquisition and mu lti-planar and/or 3D reconstructions. CONTRAST MATERIAL: Intravenous: Omnipaque 350contrast volume:81 mL COMPARISON: CT CT RENAL COLIC WO from 06/12/[address] CHEST PE CTA from 06/28/2022 FINDINGS: CHEST: Tracheobronchial tree: Patent where visualized. Pulmonary parenchyma: No consolidation or dominant measurable mass. No architectural distortion. Pulmonary Arteries: No evidence of filling defect to suggest pulmonary emboli. Mediastinum and Jessika: No dominant adenopathy or fluid collection. The esophagus is unremarkable. Ther e is soft tissue in the anterior mediastinum likely reflecting residual thymic tissue. Visualized thyroid gland: Unremarkable. Pleura: No effusion or pneumothorax. Heart: The heart is not dilated. No coronary artery calcifications are seen. No pericardial effusion. Aorta: Thoracic aorta non-dilated. No evidence of dissection. Bones: Within normal limits for the patient's age. Soft tissues: Bilateral gynecomastia. ABDOMEN: Liver: Normal density. No measurable mass. Portal, Superior Mesenteric, and Splenic Veins: Unremarkable. Gallbladder and Biliary Tract: No radiodense calculus or dilation. Pancreas: Normal density, no abnormal calcifications or inflammatory process. Spleen: Normal. Adrenals: No masses seen. Kidneys: Normal size, contour and axis. No radiodense stones or obstructive uropathy. There is a simp le cyst in the left kidney. No follow-up is recommended. Abdominal Aorta: Abdominal portion non-dilated. Bowel: No obstruction or bowel wall thickening. There is no evidence of appendicitis. Peritoneal Cavity: No ascites, collection or mesenteric inflammatory response. No free air. Lymph Nodes: Within normal limits. Bones: Within normal limits for the patient's age. Soft Tissues: Unremarkable. PELVIS: Bladder: Symmetric distention, no gross wall thickening. Reproductive Organs: Unremarkable as visualized. Lymph Nodes: Within normal limits. Bones: Within normal limits. IMPRESSION: 1. No evidence pulmonary embolism, thoracic aortic dissection or aneurysm. 2. No acute pulmonary process. 3. No acute abdominal or pelvic process. RADIATION DOSE DELIVERED: 1,828.8mGy.cm Total DLP DATA REPOSITORY: All CT scans at this facility are submitted to the National Radiology Data Registry (NRDR) Dose Index Registry (DIR) with the [employer] (ACR). RADIATION OPTIMIZATION: All CT scans at this facility use at least one of these dose optimization te chniques: automated exposure control; mA and/or kV adjustment per patient size (includes targeted exa ms where dose is matched to clinical indication); or iterative reconstruction.
[2022-08-11] MEDS: Potassium Chloride 20 MEQ TABCR 40 MEQ PO (01:47)
[2022-08-11] MEDS: MAGNESIUM SULFATE 1 GM/100 ML BAG IVPB (01:48)
[2022-08-11] MEDS: Normal Saline 1,000 ML 1000 ML IV (01:48)
--- NOTE | 2022-08-11 02:04 | DI.VRAD_ITS ---
PROCEDURE INFORMATION: Exam: XR Chest Exam date and time: 08/11/2022 1:36 AM Age: 26 years old Clinical indication: Pain; Chest pressure TECHNIQUE: Imaging protocol: Radiologic exam of the chest. Views: 2 views. COMPARISON: CR XR CHEST 2V PA LATERAL 07/30/2022 10:55 PM FINDINGS: Lungs: No infiltrates. No no edema. Pleural spaces: Unremarkable. No pleural effusion. No pneumothorax. Heart/Mediastinum: Unremarkable. No cardiomegaly. Bones/joints: Unremarkable. IMPRESSION: 1. No acute findings. Dictated and Authenticated by: Jean Marie Pierson MD. Ordering:JOSEPH Ravi MD
[2022-08-11 02:09] LABS: D-Dimer 358 ng/mlFEU (<500)
[2022-08-11] MEDS: Omnipaque 350 MG/ML 100 ML BTL IJ (02:27)
[2022-08-11] MEDS: Normal Saline - Diluent 50 ML VIAL IV (02:28)
--- NOTE | 2022-08-11 02:54 | DI.VRAD_ITS ---
PROCEDURE INFORMATION: Exam: CTA Chest With Contrast Exam date and time: 08/11/2022 2:10 AM Age: 26 years old Clinical indication: Abdominal pain; Flank; Left; Chest pressure TECHNIQUE: Imaging protocol: Computed tomographic angiography of the chest with contrast. 3D rendering (Not supervised by radiologist): MIP and/or 3D reconstructed images were created by the technologist. Contrast material: OMNIPAQUE 350; Contrast volume: 81 ml; Contrast route: INTRAVENOUS (IV); COMPARISON: CT CHEST PE CTA 06/28/2022 10:41 AM FINDINGS: Pulmonary arteries: Normal. No pulmonary emboli. Aorta: Unremarkable. No aortic aneurysm. No aortic dissection. Lungs: Unremarkable. No consolidation. No masses. Pleural spaces: Unremarkable. No pneumothorax. No pleural effusion. Heart: Unremarkable. No cardiomegaly. No pericardial effusion. Lymph nodes: Unremarkable. No enlarged lymph nodes. Bones/joints: Unremarkable. No acute fracture. Soft tissues: Unremarkable. IMPRESSION: No acute findings. PROCEDURE INFORMATION: Exam: CT Abdomen And Pelvis With Contrast Exam date and time: 08/11/2022 2:10 AM Age: 26 years old Clinical indication: Abdominal pain; Flank; Left; Chest pressure TECHNIQUE: Imaging protocol: Computed tomography of the abdomen and pelvis with contrast. Contrast material: OMNIPAQUE 350; Contrast volume: 81 ml; Contrast route: INTRAVENOUS (IV); COMPARISON: CT ABDOMEN PELVIS W 05/18/2022 7:40 PM FINDINGS: Liver: Normal. No mass. Gallbladder and bile ducts: Normal. No calcified stones. No ductal dilation. Pancreas: Normal. No ductal dilation. Spleen: Normal. No splenomegaly. Adrenal glands: Normal. No mass. Kidneys and ureters: Normal. No hydronephrosis. Stomach and bowel: Unremarkable. No obstruction. No mucosal thickening. Appendix: No evidence of appendicitis. Intraperitoneal space: Unremarkable. No free air. No significant fluid collection. Vasculature: Unremarkable. No abdominal aortic aneurysm. Lymph nodes: Unremarkable. No enlarged lymph nodes. Urinary bladder: Unremarkable as visualized. Reproductive: Unremarkable as visualized. Bones/joints: Unremarkable. No acute fracture. Soft tissues: Unremarkable. IMPRESSION: No acute findings. Dictated and Authenticated by: Ricardo Bowens MD. Ordering:JOSEPH Ravi MD
[2022-08-11] MEDS: Ketorolac 30 MG/ML VIAL IVP (03:05)
[2022-08-11 03:30] VITALS: BP 123/68; PULSE 63; RESP 16; TEMP 36.7; O2SAT 96
== END 2022-08-11 03:31 | disposition home or self-care (01) ==
PROVIDERS: Emergency Provider Physician Assistant; PCP Family Medicine
DX: M54.50 Low back pain, unspecified (principal); R10.13 Epigastric pain; R39.11 Hesitancy of micturition
CPT/HCPCS: 71275; 74177; 80053; 83690; 93005; 96361; 96374; 96375; 99285; 71046; 81003; 83735; 84484; 85025; 85379; 93010; J1885; J3475; J3490

== ENCOUNTER 2022-08-13 00:34 | Emergency (ER) | payer OTHER, SELFPAY ==
[2022-08-13 00:38] VITALS: BP 148/92; PULSE 110; RESP 18; TEMP 36.7; O2SAT 95
--- NOTE | 2022-08-13 00:44 | ED.GENADUL_ITS ---
Discharge Plan Disposition Patient Disposition: Home Condition: Good Discharge Details Clinical Impression: URI, acute Primary Care Provider: Brendon Vivar ED Provider: Richy Eagle Home Meds and New Rx's Prescriptions: New benzonatate 100 mg capsule 100 mg PO TID Qty: 30 0RF No Action cyclobenzaprine 10 mg tablet 10 mg PO BID Qty: 180 3RF trazodone 100 mg tablet 100 mg PO HS Qty: 90 3RF acetaminophen 325 mg capsule 650 mg PO Q6H PRN polyethylene glycol 3350 [Miralax] 17 gram powder in packet 17 g PO DAILY naloxegol 12.5 mg tablet 12.5 mg PO QAM Qty: 60 0RF Rx Instructions: must be taken on empty stomach; no food 1 hr after or 2-3 hrs before dose fluoxetine 20 mg capsule 60 mg PO DAILY Qty: 270 3RF gabapentin 800 mg tablet 800 mg PO TID Qty: 270 2RF methadone 10 mg/5 mL solution 110 mg PO QAM calcium carbonate [Tums] 200 mg calcium (500 mg) tablet,chewable 1,000 mg PO BID Qty: 0 0RF Hold Instructions: Resume on 06/15/22. calcitriol 0.5 mcg capsule 0.5 mcg PO BID Qty: 360 3RF Hold Instructions: Resume on 06/15/22. clonazepam 1 mg tablet 0.5 mg PO BID potassium chloride [K-Tab] 20 mEq tablet extended release 20 meq PO DAILY Qty: 7 0RF magnesium gluconate 27 mg magnesium (500 mg) tablet 27 mg PO BID Qty: 30 0RF benzonatate 100 mg capsule 100 mg PO TID Qty: 30 0RF azithromycin 250 mg tablet See Rx Instructions .ROUTE .COMPLEX Qty: 6 0RF Rx Instructions: For 250 mg dose pack: take 500 mg today (day 1), then 250 mg for 4 days (days 2-5) Discharge Instructions Instructions: Upper Respiratory Infection (ED) Additional Instructions: At this time your symptoms appear inconsistent with pneumonia. You do have symptoms of a mild upper respiratory infection. Please take the Tessalon Perles as directed. With your negative CAT scan that you had within the last 48 hours I suspect that your symptoms are little is most likely viral in origin. Please continue to drink plenty of fluids and do not miss any of your supplements. You can also take [id number]-qztciys 10 mg loratadine once daily to help with congestion and postnasal drip which could be a component of your cough. If you notice any worsening of your symptoms, or any new symptoms such as vomiting, diarrhea, fever, chills, shortness of breath, chest pain, numbness, weakness, or fainting , please return immediately to the emergency department for reevaluation. Please follow up with your primary care provider as soon as possible for reassessment and reevaluation. As always, it was a pleasure participating in your medical care today. Referrals: Brendon Vivar DO [Primary Care Provider] - Medical Decision Making This is a 26-year-old male with a past medical history significant for anxiety, depression, who presents today for evaluation of cough. High cholesterol, men type I, multiple electrolyte abnormalities with subsequent parathyroidectomy on 03/26/2022 at [facility] [place], PTSD,?who presents today for evaluation of congestion, mild cough. I saw the patient on 08/09/2022 which was 4 days ago. He was diagnosed with mild bronchitis and questionable early pneumonia on bedside ultrasound. He was given azithromycin and Tessalon Perles. He been doing well, however he still had some runny nose and congestion and presented 2 days ago on 08/11/2022 where he had a CTA of his chest, and a notably thorough laboratory work-up performed. All of which diagnostic evaluations were negative. He presents 2 days later today, for continued mild congestion, mild cough. He states that his mother has similar symptoms. He had a flu COVID and RSV test 4 days ago which was negative. He denies any fever currently. He denies any hemoptysis. No other change in his symptoms. He is almost out of Tessalon Perles. No other complaints at this pain. No chest pain, vomiting, diarrhea, numbness, tingling or weakness. Physical exam demonstrates well-appearing male, clear lung sounds, oxygenation is excellent/stable. Minimal elevation in his heart rate. Patient otherwise looks clinically stable. Posterior oropharynx is unremarkable, ears demonstrate no otitis media. Symptoms consistent with a mild viral upper respiratory infection. CTA 48 hours ago showed no evidence of pneumonia. Patient just finished his last dose of antibiotics today. Symptoms appear inconsistent with significant bacterial infection. We will perform repeat flu COVID/RSV test. Will recommend continued fluids and hydration at home. We will give a continued prescription for Tessalon Perles as needed. Will recommend HPI General Date/Time Provider Initiated Documentation: 08/13/22 00:35 . HPI Narrative: This is a 26-year-old male with a past medical history significant for anxiety, depression, who presents today for evaluation of cough. High cholesterol, men type I, multiple electrolyte abnormalities with subsequent parathyroidectomy on 03/26/2022 at [facility] [place], PTSD,?who presents today for evaluation of congestion, mild cough. I saw the patient on 08/09/2022 which was 4 days ago. He was diagnosed with mild bronchitis and questionable early pneumonia on bedside ultrasound. He was given azithromycin and Tessalon Perles. He been doing well, however he still had some runny nose and congestion and presented 2 days ago on 08/11/2022 where he had a CTA of his chest, and a notably thorough laboratory work-up performed. All of which diagnostic evaluations were negative. He presents 2 days later today, for continued mild congestion, mild cough. He states that his mother has similar symptoms. He had a flu COVID and RSV test 4 days ago which was negative. He denies any fever currently. He denies any hemoptysis. No other change in his symptoms. He is almost out of Tessalon Perles. No other complaints at this time. No chest pain, vomiting, diarrhea, numbness, tingling or weakness. Related Data Home Medications Medication Instructions Recorded Confirmed methadone 10 mg/5 mL oral solution 110 mg PO QAM 11/16/21 08/09/22 cyclobenzaprine 10 mg tablet 10 mg PO BID #180 tabs 04/19/22 08/09/22 trazodone 100 mg tablet 100 mg PO HS #90 tabs 05/13/22 08/09/22 acetaminophen 325 mg capsule 650 mg PO Q6H PRN 06/07/22 08/09/22 naloxegol 12.5 mg tablet 12.5 mg PO QAM #60 tabs 06/07/22 08/09/22 polyethylene glycol 3350 17 gram 17 g PO DAILY 06/07/22 08/09/22 oral powder packet (Miralax) calcitriol 0.5 mcg capsule 0.5 mcg PO BID #360 caps 06/14/22 08/09/22 calcium carbonate 200 mg calcium 1,000 mg PO BID #0 tabs 06/14/22 08/09/22 (500 mg) chewable tablet (Tums) potassium chloride 20 mEq 20 meq PO DAILY #7 tabs 07/04/22 08/09/22 tablet,extended release (K-Tab) magnesium gluconate 27 mg 27 mg PO BID #30 tabs 07/17/22 08/09/22 magnesium (500 mg) tablet fluoxetine 20 mg capsule 60 mg PO DAILY #270 caps 07/18/22 08/09/22 gabapentin 800 mg tablet 800 mg PO TID #270 tabs 07/18/22 08/09/22 clonazepam 1 mg tablet 0.5 mg PO BID 07/26/22 08/09/22 azithromycin 250 mg tablet See Rx Instructions PO .COMPLEX #6 08/09/22 tabs benzonatate 100 mg capsule 100 mg PO TID #30 caps 08/09/22 benzonatate 100 mg capsule 100 mg PO TID #30 caps 08/13/22 Previous Rx's Medication Instructions Recorded cyclobenzaprine 10 mg tablet 10 mg PO BID #180 tabs 04/19/22 trazodone 100 mg tablet 100 mg PO HS #90 tabs 05/13/22 naloxegol 12.5 mg tablet 12.5 mg PO QAM #60 tabs 06/07/22 calcitriol 0.5 mcg capsule 0.5 mcg PO BID #360 caps 06/14/22 calcium carbonate 200 mg calcium 1,000 mg PO BID #0 tabs 06/14/22 (500 mg) chewable tablet (Tums) potassium chloride 20 mEq 20 meq PO DAILY #7 tabs 07/04/22 tablet,extended release (K-Tab) magnesium gluconate 27 mg 27 mg PO BID #30 tabs 07/17/22 magnesium (500 mg) tablet fluoxetine 20 mg capsule 60 mg PO DAILY #270 caps 07/18/22 gabapentin 800 mg tablet 800 mg PO TID #270 tabs 07/18/22 azithromycin 250 mg tablet See Rx Instructions PO .COMPLEX #6 08/09/22 tabs benzonatate 100 mg capsule 100 mg PO TID #30 caps 08/09/22 benzonatate 100 mg capsule 100 mg PO TID #30 caps 08/13/22 Allergies Allergy/AdvReac Type Severity Reaction Status Date / Time codeine Allergy Intermediate Verified 08/09/22 08:47 amoxicillin AdvReac Intermediate Nausea Verified 08/09/22 08:47 General Stated Complaint: RespSymp ADRIANA: 4 Review of Systems All systems reviewed & are unremarkable except as noted in HPI and below PFSH All Active Problems Headache (Acute) Medication reaction (Acute) Anxiety (Chronic) Hematuria (Acute) Costochondritis (Acute) Pain, dental (Acute) Acute viral syndrome (Acute) Chronic renal disease (Chronic) Cough (Acute) Bronchitis (Acute) Breast lesion (Acute) Back pain (Acute) Epigastric abdominal pain (Acute) Urinary hesitancy (Acute) URI, acute (Acute) Pulmonary nodule 1 cm or greater in diameter (Acute) Phlebitis (Acute) Back pain (Acute) Therapeutic opioid induced constipation (Acute) Sphincter of Oddi dysfunction (Acute) Abnormal CT scan, kidney (Acute) Intrahepatic bile duct dilation (Acute) Common bile duct dilatation (Acute) Abdominal pain (Acute) Iatrogenic hypocalcemia (Acute) Multiple endocrine neoplasia type I (Chronic) Chronic constipation (Chronic) Primary hyperparathyroidism (Chronic) Depression (Chronic) Hypocalcemia (Chronic) Hypomagnesemia (Chronic) Depression (Chronic) Suicidal ideation (Acute) Elevated parathyroid hormone (Acute) Family history of coronary arteriosclerosis (Chronic) Father of MN at 50, mother had MN at 42 Severe anxiety with panic (Acute) Cellulitis (Acute) Medical History Anxiety Depression Family history of multiple endocrine neoplasia, type 1 Hyperlipidemia Hypocalcemia PTSD (post-traumatic stress disorder) Surgical History H/O parathyroidectomy Family History Mother Anxiety Asthma Depression Sister Anxiety Depression Father Cancer lung & stomach Depression Diabetes Hypertension MEN 1 (multiple endocrine neoplasia) Social History Smoking/Tobacco Use Status: Never Smoking risk assessment performed?: Yes Alcohol Intake: never Drug 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 Adopted: No Caregiver/Support person: No Foster care: No Household members: none Housing: house Number of Children: 0 Communication Needs: None Education Level: high school Do you need help understanding health information?: Never 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 and animals: Yes (Ally) Pets and animals: dog(s) Sexually active: No Do you think of yourself as: straight/heterosexual Current gender identity: male What is your relationship status?: How often do you talk on the phone with friends or family?: twice per week How often do you get together with friends or relatives?: never Do you belong to any clubs or organized social groups?: no Panel score (0-1 are the most socially isolated patients): 0 What type of physical activity do you participate in: walking Duration: 15-30 minutes/day Frequency: 5-6 times per week Maryam/Moravian: Muslim Special maryam needs: No Seatbelt use: always Helmet use: Yes Helmet use: always Drive 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 sales route 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 Exam Narrative Exam Narrative: 1.Const: Well-nourished, Well-developed, appearing stated age 2.Eyes: PERRL, no conjunctival injection, and symmetrical lids. 3.ENT: Atraumatic external nose and ears. Moist MM. Neck: Symmetric, trachea midline, No thyromegaly. 4.CVS: +S1/S2, No murmurs or gallops. Peripheral pulses 2+ and equal in all extremities. Brisk capillary refill in all extremities. 5.RESP: Unlabored respiratory effort. Clear to auscultation bilaterally. No wheezes rales or rhonchi 6.GI: Soft, Nontender/Nondistended, No hepatosplenomegaly. No guarding or rebound. 7.MSK: Normocephalic/Atraumatic, Extremities w/o deformity or ttp No cyanosis or clubbing, Normal movement of all extremities 8.Skin: Warm, Dry. No rashes or lesions. 9.Neuro: rate setter II-XII grossly intact. Sensation grossly intact, no focal neurologic deficits. 10.Psych: (AAO) x3. Appropriate mood and affect Course Vital Signs Vital signs: Vital Signs Temperature 36.7 C 08/13/22 00:38 Pulse 110 H 08/13/22 00:38 Respiratory Rate 18 08/13/22 00:38 Blood Pressure 148/92 H 08/13/22 00:38 Pulse Oximetry 95 08/13/22 00:38 Temperature 36.7 C 08/13/22 00:38 Temperature Source Skin 08/13/22 00:38 Pulse 110 H 08/13/22 00:38 Respiratory Rate 18 08/13/22 00:38 Blood Pressure 148/92 H 08/13/22 00:38 Blood Pressure Position Sitting 08/13/22 00:38 Pulse Oximetry 95 08/13/22 00:38 Oxygen Delivery Method Room Air 08/13/22 00:38 Oxygen Flow Rate 0 08/13/22 00:38
[2022-08-13 01:30] LABS: COVID-19 PCR Negative (Negative); Influenza A PCR Negative (Negative); Influenza B PCR Negative (Negative); RSV PCR Negative (Negative)
[2022-08-13 01:32] LABS: Source Nasopharynx
== END 2022-08-13 00:59 | disposition home or self-care (01) ==
PROVIDERS: Emergency Provider Student in an Organized Health Care Education/Training Program; PCP Family Medicine
DX: J06.9 Acute upper respiratory infection, unspecified (principal); R05.9 Cough, unspecified; J40 Bronchitis, not specified as acute or chronic; Z20.822 Contact with and (suspected) exposure to COVID-19
CPT/HCPCS: 87637; 99282; 99283

== ENCOUNTER 2022-08-16 08:27 | Emergency (ER) | payer OTHER, SELFPAY ==
--- NOTE | 2022-08-16 08:30 | DI.US_ITS ---
Exam(s) US LOWER EXTREMITY VENOUS LT EXAM: US LOWER EXTREMITY VENOUS LT CLINICAL HISTORY: inner thigh pain TECHNIQUE: Grayscale, color, and doppler imaging of the deep venous system of the left lower extremi ty was performed. COMPARISON: US POCUS EXAM from 08/09/2022 FINDINGS: There is no evidence of intraluminal thrombus and there is normal compression and augmentation demons trated within the common femoral vein, femoral vein, and popliteal vein. In the ipsilateral calf the interrogated veins also exhibit normal compression/ augmentation properti es. The ipsilateral saphenofemoral junction is patent. IMPRESSION: 1. No evidence of DVT in the LEFT lower extremity. DATA REPOSITORY:
[2022-08-16 08:31] VITALS: BP 125/82; PULSE 88; RESP 16; TEMP 36.4; O2SAT 97
[2022-08-16 08:35] VITALS: RESP 16
[2022-08-16] MEDS: Acetaminophen 500 MG TAB 1000 MG PO (08:39)
--- NOTE | 2022-08-16 08:41 | W.ED.GENAD ---
Discharge Plan Disposition Patient Disposition: Home Discharge Details Clinical Impression: Acute pain of left thigh Primary Care Provider: Brendon Vivar ED Provider: Crow Gama Home Meds and New Rx's Prescriptions: Continued cyclobenzaprine 10 mg tablet 10 mg PO BID Qty: 180 3RF trazodone 100 mg tablet 100 mg PO HS Qty: 90 3RF acetaminophen 325 mg capsule 650 mg PO Q6H PRN polyethylene glycol 3350 [Miralax] 17 gram powder in packet 17 g PO DAILY naloxegol 12.5 mg tablet 12.5 mg PO QAM Qty: 60 0RF Rx Instructions: must be taken on empty stomach; no food 1 hr after or 2-3 hrs before dose fluoxetine 20 mg capsule 60 mg PO DAILY Qty: 270 3RF gabapentin 800 mg tablet 800 mg PO TID Qty: 270 2RF methadone 10 mg/5 mL solution 110 mg PO QAM calcium carbonate [Tums] 200 mg calcium (500 mg) tablet,chewable 1,000 mg PO BID Qty: 0 0RF Hold Instructions: Resume on 06/15/22. calcitriol 0.5 mcg capsule 0.5 mcg PO BID Qty: 360 3RF Hold Instructions: Resume on 06/15/22. clonazepam 1 mg tablet 0.5 mg PO BID potassium chloride [K-Tab] 20 mEq tablet extended release 20 meq PO DAILY Qty: 7 0RF magnesium gluconate 27 mg magnesium (500 mg) tablet 27 mg PO BID Qty: 30 0RF benzonatate 100 mg capsule 100 mg PO TID Qty: 30 0RF azithromycin 250 mg tablet See Rx Instructions .ROUTE .COMPLEX Qty: 6 0RF Rx Instructions: For 250 mg dose pack: take 500 mg today (day 1), then 250 mg for 4 days (days 2-5) benzonatate 100 mg capsule 100 mg PO TID Qty: 30 0RF Discharge Instructions Instructions: Leg Pain (ED) Additional Instructions: At this time no signs of a DVT were found on ultrasound. More than likely you have a muscular or ligamentous strain of your left inner thigh. You may continue to take [id number] pain medication as needed and if not improving follow-up with your primary care provider for reassessment. Referrals: Brendon Vivar DO [Primary Care Provider] - Discharge Data Discharge Date/Time-TO BE ENTERED AT DEPARTURE: 08/16/22 09:29 Medical Decision Making Patient presenting to the emergency department for chief complaint of left thigh pain. Patient reports that 2 days ago he woke up with acute left thigh pain with no obvious injury or trauma stress or strenuous exercise that would have caused the discomfort. Patient denies any urinary or genital complaints denies all other complaints. Patient is well-known to myself in the department for health related anxiety. Physical exam does elicit tenderness to the medial thigh mostly over the soft tissue. Full range of motion exam is otherwise unremarkable. Patient does state concern for DVT. While I feel that patient is at low risk for this we will perform ultrasound imaging to rule out DVT. Pending results we will give patient acetaminophen as I do suspect muscular or ligamentous injury of occult nature. Reviewed emergency medical technician basic preliminary report which shows no acute DVT. Patient discharged with recommendations to continue to monitor symptoms and follow-up with primary care provider. After discussion of diagnosis and plan of care patient has no further needs, questions, or concerns and states clear understanding to return to the emergency department for any worsening symptoms. This documentation was generated using [employer] system, please disregard any oddities of phrase or misspellings. Imaging Data Radiologic Study: Imaging: Ultrasound HPI General Mode of arrival: ambulatory. Date/Time Provider Initiated Documentation: 08/16/22 08:30. Limitations to Documentation: no limitations. Information obtained by: patient and RN notes reviewed. History of Present Illness 26 year old M presents to the emergency department with the chief complaint of Left thigh pain, described as moderate, with intensity rated at 7. Quality is described as aching, and is localized to the left and lower extremity. Patient reports no radiation. Patient started experiencing this day(s) (2) and it has been constant. No relieving factors improve symptom(s), No exacerbating factors reported . Patient notes no other symptoms.. Patient did receive the following treatments prior to arrival, none Related Data Home Medications Medication Instructions Recorded Confirmed methadone 10 mg/5 mL oral solution 110 mg PO QAM 11/16/21 08/16/22 cyclobenzaprine 10 mg tablet 10 mg PO BID #180 tabs 04/19/22 08/16/22 trazodone 100 mg tablet 100 mg PO HS #90 tabs 05/13/22 08/16/22 acetaminophen 325 mg capsule 650 mg PO Q6H PRN 06/07/22 08/16/22 naloxegol 12.5 mg tablet 12.5 mg PO QAM #60 tabs 06/07/22 08/16/22 polyethylene glycol 3350 17 gram 17 g PO DAILY 06/07/22 08/16/22 oral powder packet (Miralax) calcitriol 0.5 mcg capsule 0.5 mcg PO BID #360 caps 06/14/22 08/16/22 calcium carbonate 200 mg calcium 1,000 mg PO BID #0 tabs 06/14/22 08/16/22 (500 mg) chewable tablet (Tums) potassium chloride 20 mEq 20 meq PO DAILY #7 tabs 07/04/22 08/16/22 tablet,extended release (K-Tab) magnesium gluconate 27 mg 27 mg PO BID #30 tabs 07/17/22 08/16/22 magnesium (500 mg) tablet fluoxetine 20 mg capsule 60 mg PO DAILY #270 caps 07/18/22 08/16/22 gabapentin 800 mg tablet 800 mg PO TID #270 tabs 07/18/22 08/16/22 clonazepam 1 mg tablet 0.5 mg PO BID 07/26/22 08/16/22 azithromycin 250 mg tablet See Rx Instructions PO .COMPLEX #6 08/09/22 08/16/22 tabs benzonatate 100 mg capsule 100 mg PO TID #30 caps 08/09/22 08/16/22 benzonatate 100 mg capsule 100 mg PO TID #30 caps 08/13/22 08/16/22 Previous Rx's Medication Instructions Recorded cyclobenzaprine 10 mg tablet 10 mg PO BID #180 tabs 04/19/22 trazodone 100 mg tablet 100 mg PO HS #90 tabs 05/13/22 naloxegol 12.5 mg tablet 12.5 mg PO QAM #60 tabs 06/07/22 calcitriol 0.5 mcg capsule 0.5 mcg PO BID #360 caps 06/14/22 calcium carbonate 200 mg calcium 1,000 mg PO BID #0 tabs 06/14/22 (500 mg) chewable tablet (Tums) potassium chloride 20 mEq 20 meq PO DAILY #7 tabs 07/04/22 tablet,extended release (K-Tab) magnesium gluconate 27 mg 27 mg PO BID #30 tabs 07/17/22 magnesium (500 mg) tablet fluoxetine 20 mg capsule 60 mg PO DAILY #270 caps 07/18/22 gabapentin 800 mg tablet 800 mg PO TID #270 tabs 07/18/22 azithromycin 250 mg tablet See Rx Instructions PO .COMPLEX #6 08/09/22 tabs benzonatate 100 mg capsule 100 mg PO TID #30 caps 08/09/22 benzonatate 100 mg capsule 100 mg PO TID #30 caps 08/13/22 Allergies Allergy/AdvReac Type Severity Reaction Status Date / Time codeine Allergy Intermediate Verified 08/16/22 08:35 amoxicillin AdvReac Intermediate Nausea Verified 08/16/22 08:35 General Stated Complaint: Vascular ADRIANA: 4 Review of Systems Constitutional Constitutional: Denies chills, Denies fever(s) and Denies headache(s) ENT Ears, Nose, Mouth, and Throat: Denies headache(s) Cardiovascular Cardiovascular: Denies chest pain, Denies irregular heart rhythm, Reports claudication, Reports leg edema, Denies lightheadedness and Denies dyspnea Respiratory Respiratory: Denies dyspnea Gastrointestinal Gastrointestinal: Denies abdominal pain Musculoskeletal Musculoskeletal: Reports as per HPI, Denies joint swelling and Denies radiating pain into limb Neurologic Neurologic: Denies headache(s) and Denies sensory deficit PFSH All Active Problems (Updated 08/17/22 @ 00:01 by HAMMAD WILEY) Headache (Acute) Medication reaction (Acute) Anxiety (Chronic) Hematuria (Acute) Costochondritis (Acute) Pain, dental (Acute) Acute viral syndrome (Acute) Chronic renal disease (Chronic) Cough (Acute) Bronchitis (Acute) Breast lesion (Acute) Back pain (Acute) Epigastric abdominal pain (Acute) Urinary hesitancy (Acute) URI, acute (Acute) Acute pain of left thigh (Acute) Pulmonary nodule 1 cm or greater in diameter (Acute) Therapeutic opioid induced constipation (Acute) Sphincter of Oddi dysfunction (Acute) Abnormal CT scan, kidney (Acute) Intrahepatic bile duct dilation (Acute) Common bile duct dilatation (Acute) Abdominal pain (Acute) Iatrogenic hypocalcemia (Acute) Multiple endocrine neoplasia type I (Chronic) Chronic constipation (Chronic) Primary hyperparathyroidism (Chronic) Depression (Chronic) Hypocalcemia (Chronic) Hypomagnesemia (Chronic) Depression (Chronic) Suicidal ideation (Acute) Elevated parathyroid hormone (Acute) Family history of coronary arteriosclerosis (Chronic) Father of [place] at 50, mother had [place] at 42 Severe anxiety with panic (Acute) Cellulitis (Acute) Medical History Anxiety Depression Family history of multiple endocrine neoplasia, type 1 Hyperlipidemia Hypocalcemia PTSD (post-traumatic stress disorder) Surgical History H/O parathyroidectomy Family History Mother Anxiety Asthma Depression Sister Anxiety Depression Father Cancer lung & stomach Depression Diabetes Hypertension MEN 1 (multiple endocrine neoplasia) Social History Smoking/Tobacco Use Status: Never Smoking risk assessment performed?: Yes Alcohol Intake: never 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 Adopted: No Caregiver/Support person: No Foster care: No Household members: none Housing: house Number of Children: 0 Communication Needs: None Education Level: high school Do you need help understanding health information?: Never 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 and animals: Yes (Ally) Pets and animals: dog(s) Sexually active: No Do you think of yourself as: straight/heterosexual Current gender identity: male What is your relationship status?: How often do you talk on the phone with friends or family?: twice per week How often do you get together with friends or relatives?: never Do you belong to any clubs or organized social groups?: no Panel score (0-1 are the most socially isolated patients): 0 What type of physical activity do you participate in: walking Duration: 15-30 minutes/day Frequency: 5-6 times per week Maryam/Roman Catholic: Yazidi Special maryam needs: No Seatbelt use: always Helmet use: Yes Helmet use: always 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 Do you feel safe at home: Yes Do you feel safe in your relationship?: Yes Exam Const General: cooperative, no acute distress and not ill appearing Orientation: alert, awake and oriented x3 Resp Effort & Inspection: normal respiratory effort, able to speak in complete sentences and no respiratory distress Cardio Rate: regular rate Rhythm: regular rhythm Pulses: normal peripheral pulses Skin General skin exam: no rashes or lesions noted Neuro General: patient alert, patient awake, patient oriented x3, moves all extremities and no focal motor deficits Sensory Exam: no sensory deficits noted Extrem General: normal exam except as noted Left lower extremity: hip/thigh Details: normal to inspection, tenderness Location: of the proximal upper leg Location: medially and of the mid upper leg Location: medially and normal ROM; no swelling and no ecchymosis and knee Details: normal to inspection and normal ROM; no tenderness and no swelling Course Vital Signs Vital signs: Vital Signs Temperature 36.4 C 08/16/22 08:31 Pulse 88 08/16/22 08:31 Respiratory Rate 16 08/16/22 08:31 Blood Pressure 125/82 08/16/22 08:31 Pulse Oximetry 97 08/16/22 08:31 Temperature 36.4 C 08/16/22 08:31 Temperature Source Tympanic 08/16/22 08:31 Pulse 88 08/16/22 08:31 Respiratory Rate 16 08/16/22 08:35 Respiratory Effort Normal 08/16/22 08:35 Respiratory Depth Normal 08/16/22 08:35 Respiratory Pattern Normal 08/16/22 08:35 Blood Pressure 125/82 08/16/22 08:31 Blood Pressure Position Sitting 08/16/22 08:31 Pulse Oximetry 97 08/16/22 08:31 Oxygen Delivery Method Room Air 08/16/22 08:31 Oxygen Flow Rate 0 08/16/22 08:31 Pain Level 4 08/16/22 08:39
== END 2022-08-16 09:29 | disposition home or self-care (01) ==
PROVIDERS: Emergency Provider Nurse Practitioner Family; PCP Family Medicine
DX: M79.652 Pain in left thigh (principal)
CPT/HCPCS: 99284; 93971; 99283

== ENCOUNTER 2022-08-23 07:58 | Emergency (ER) | payer OTHER, SELFPAY ==
[2022-08-23 08:03] VITALS: BP 138/88; PULSE 107; RESP 18; TEMP 36.9; O2SAT 97
--- NOTE | 2022-08-23 08:15 | RT.EKG_ITS ---
APPROVED REPORT Exam: Resting ECG Reason for Exam: Chest Pain Patient Location: E HR:100 bpm ECG Measurements Heart Rate 100 AXIS NE 178 P 49 QRSd 97 QRS 45 QT 391 T 24 QTc 505 Conclusion Sinus tachycardia...rate> 99 Prolonged QT interval...QTc >488mS
--- NOTE | 2022-08-23 08:18 | ED.GENADUL_ITS ---
Discharge Plan Disposition Patient Disposition: Home Discharge Details Clinical Impression: Constipation Primary Care Provider: Brendon Vivar ED Provider: Antoinette Templeton Home Meds and New Rx's Prescriptions: New polyethylene glycol 3350 [Miralax] 17 gram/dose powder 17 g PO BID PRN (Reason: constipation) 5 Days Qty: 170 0RF Rx Instructions: Mix powder with 8 ounces of fluid twice daily as needed for constipation. Please stop after bowel movement produced. Continued cyclobenzaprine 10 mg tablet 10 mg PO BID Qty: 180 3RF trazodone 100 mg tablet 100 mg PO HS Qty: 90 3RF acetaminophen 325 mg capsule 650 mg PO Q6H PRN polyethylene glycol 3350 [Miralax] 17 gram powder in packet 17 g PO DAILY naloxegol 12.5 mg tablet 12.5 mg PO QAM Qty: 60 0RF Rx Instructions: must be taken on empty stomach; no food 1 hr after or 2-3 hrs before dose fluoxetine 20 mg capsule 60 mg PO DAILY Qty: 270 3RF gabapentin 800 mg tablet 800 mg PO TID Qty: 270 2RF methadone 10 mg/5 mL solution 110 mg PO QAM calcium carbonate [Tums] 200 mg calcium (500 mg) tablet,chewable 1,000 mg PO BID Qty: 0 0RF Hold Instructions: Resume on 06/15/22. calcitriol 0.5 mcg capsule 0.5 mcg PO BID Qty: 360 3RF Hold Instructions: Resume on 06/15/22. clonazepam 1 mg tablet 0.5 mg PO BID potassium chloride [K-Tab] 20 mEq tablet extended release 20 meq PO DAILY Qty: 7 0RF magnesium gluconate 27 mg magnesium (500 mg) tablet 27 mg PO BID Qty: 30 0RF benzonatate 100 mg capsule 100 mg PO TID Qty: 30 0RF azithromycin 250 mg tablet See Rx Instructions .ROUTE .COMPLEX Qty: 6 0RF Rx Instructions: For 250 mg dose pack: take 500 mg today (day 1), then 250 mg for 4 days (days 2-5) benzonatate 100 mg capsule 100 mg PO TID Qty: 30 0RF Discharge Instructions Instructions: Constipation (ED) Additional Instructions: CT shows some constipation. No evidence of infection or urinary tract infection. Please take the laxative as directed. It was sent to the pharmacy on file. Increase oral fluids. You may also try prune juice or similar. Follow up with primary care provider in 3-5 days. Return to ED sooner if any worsening or concerns. Increase oral fluids. Referrals: Brendon Vivar DO [Primary Care Provider] - 3 days Medical Decision Making 26-year-old male presents to the ER with a chief complaint of periumbilical abdominal pain that radiates into the back which began 2 nights ago. Patient reports that gets worse when eating or drinking anything. He describes it as fullness. Reports nausea, chills no vomiting no diarrhea no dysuria or problems urinating. Does have a past medical history of MEN1 syndrome (Multiple endocrine neoplasia) anxiety depression hyperlipidemia hypocalcemia PTSD and a history of a parathyroidectomy in March 2022. Work-up ordered including CBC CMP, lipase, urinalysis CT abdomen pelvis with contrast. Liter normal saline, 20 of Pepcid IV and 4 Zofran ordered. Informed by staff scientist that patient is having some chest pressure feels as if someone sitting on his chest. EKG ordered. EKG was reviewed by Dr. Bundy, no STEMI old EKG available for review. Patient does have prolonged QT syndrome, Zofran canceled. CBC shows no leukocytosis hemoglobin 11.6 hematocrit 33.9, sodium potassium within normal limits, creatinine 1.5, magnesium 1.9, lipase 19 urinalysis within normal limits. No evidence of UTI. Received negative CT report from radiologist. Some possible constipation. Plan is to give patient a GI cocktail and MiraLAX and discharged home with follow-up with PCP. This text was generated using [employer] dictation system, please disregard any oddities of phrase or misspellings. Medical Records Medical records reviewed: Yes I reviewed the patient's medical records. Imaging Data Radiologic Study: Imaging: CT Scan Radiologist's impression: CT CT CHEST PE ABD PELVIS W from 08/11/2022 FINDINGS: ABDOMEN: Lung Bases: Normal where visualized. Liver: Normal density. No measurable mass. Portal, Superior Mesenteric, and Splenic Veins: Unremarkable. Gallbladder and Biliary Tract: No radiodense calculus or dilation. Pancreas: Normal density, no abnormal calcifications or inflammatory process. Spleen: Normal. There is a calcified granuloma in the spleen. Adrenals: No masses seen. Kidneys: Normal size, contour and axis. No radiodense stones or obstructive uropathy. There again seen left renal simple cysts. No follow-up is recommended. Abdominal Aorta: Abdominal portion non-dilated. Bowel: No obstruction or bowel wall thickening. No evidence of appendicitis. There is a moderate amount of stool throughout the colon which may represent constipation. Peritoneal Cavity: No ascites, collection or mesenteric inflammatory response. No free air. Lymph Nodes: Within normal limits. Bones: Within normal limits for the patient's age. Soft Tissues: Unremarkable. PELVIS: Bladder: Symmetric distention, no gross wall thickening. Reproductive Organs: Unremarkable as visualized. Lymph Nodes: Within normal limits. Bones: Within normal limits for the patient's age. IMPRESSION: 1. No acute abdominal or pelvic process. 2. Findings were discussed with the emergency department at 11:06 a.m. on 08/23/2022. Lab Data Lab results reviewed: Yes I reviewed the patient's lab results. Labs: Laboratory Tests Range/Units 08/23/22 08/23/22 08/23/22 08:32 08:32 09:15 WBC (4.4-10.8) 10^3/uL 8.55 RBC (4.36-5.78) 10^6/uL 3.69 L Hgb (13.5-17.5) g/dL 11.6 L Hct (40.0-50.0) % 33.9 L MCV (80-95) fL 92 MCH (27.0-33.0) pg 31.4 MCHC (32.0-36.0) % 34.2 RDW (11.8-14.1) % 12.0 Plt Count (130-400) 10^3/uL 289 MPV (8.0-11.0) fL 10.7 Immature Gran % 0.2 Neutrophils % 52.2 Lymphocytes % 30.8 Monocytes % 12.9 Eosinophils % 3.2 Basophils % 0.7 Nucleated RBC % (0.0-0.3) % 0.0 Absolute Neutrophils (1.2-6.7) 10^3/uL 4.47 Absolute Lymphocytes (1.2-3.4) 10^3/uL 2.63 Absolute Monocytes (0.1-0.8) 10^3/uL 1.10 H Absolute Eosinophils (0.0-0.7) 10^3/uL 0.27 Absolute Basophils (0.0-0.2) 10^3/uL 0.06 Sodium (136-145) mmol/L 142 Potassium (3.5-5.1) mmol/L 3.6 Chloride (98-107) mmol/L 101 Carbon Dioxide (21.0-32.0) mmol/L 34.6 H Anion Gap (3-11) mmol/L 6.4 BUN (7-18) mg/dL 13 Creatinine (0.70-1.30) mg/dL 1.5 H Est GFR (CKD-EPI 2020) (mL/min/1.73m2) 64.63 Glucose (74-106) mg/dL 103 Calcium (8.5-10.1) mg/dL 9.3 Magnesium (1.8-2.4) mg/dL 1.9 Total Bilirubin (0.2-1.0) mg/dL 0.1 L AST (15-37) U/L 17 ALT (16-63) U/L 25 Alkaline Phosphatase (46-116) U/L 109 Total Protein (6.4-8.2) g/dL 7.6 Albumin (3.4-5.0) g/dL 3.4 Lipase (16-77) U/L 19 Urine Color (Yellow) Yellow Urine Clarity (Clear) Clear Urine pH (5-8) 7.0 Ur Specific Nunez (1.005-1.025) 1.020 Urine Protein (Negative) mg/dL Negative Urine Ketones (Negative) mg/dL Negative Urine Blood (Negative) Negative Urine Nitrite (Negative) Negative Urine Bilirubin (Negative) Negative Urine Urobilinogen (Up to 0.2) mg/dL 0.2 Ur Leukocyte Esterase (Negative) Negative Urine Glucose (Negative) mg/dL Negative HPI General Mode of arrival: ambulatory . Date/Time Provider Initiated Documentation: 08/23/22 08:08 . Limitations to Documentation: no limitations . Information obtained by: patient, RN notes reviewed and old records reviewed . HPI Narrative: 26-year-old male presents to the ER with a chief complaint of periumbilical abd ominal pain that radiates into the back which began 2 nights ago. Patient reports that gets worse when eating or drinking anything. He describes it as fullness. Reports nausea, chills no vomiting no diarrhea no dysuria or problems urinating. Does have a past medical history of MEN1 syndrome (Multiple endocrine neoplasia) anxiety depression hyperlipidemia hypocalcemia PTSD and a history of a parathyroidectomy in March 2022. Related Data Home Medications Medication Instructions Recorded Confirmed methadone 10 mg/5 mL oral solution 110 mg PO QAM 11/16/21 08/23/22 cyclobenzaprine 10 mg tablet 10 mg PO BID #180 tabs 04/19/22 08/16/22 trazodone 100 mg tablet 100 mg PO HS #90 tabs 05/13/22 08/16/22 acetaminophen 325 mg capsule 650 mg PO Q6H PRN 06/07/22 08/23/22 naloxegol 12.5 mg tablet 12.5 mg PO QAM #60 tabs 06/07/22 08/16/22 polyethylene glycol 3350 17 gram 17 g PO DAILY 06/07/22 08/23/22 oral powder packet (Miralax) calcitriol 0.5 mcg capsule 0.5 mcg PO BID #360 caps 06/14/22 08/23/22 calcium carbonate 200 mg calcium 1,000 mg PO BID #0 tabs 06/14/22 08/23/22 (500 mg) chewable tablet (Tums) potassium chloride 20 mEq 20 meq PO DAILY #7 tabs 07/04/22 08/16/22 tablet,extended release (K-Tab) magnesium gluconate 27 mg 27 mg PO BID #30 tabs 07/17/22 08/23/22 magnesium (500 mg) tablet fluoxetine 20 mg capsule 60 mg PO DAILY #270 caps 07/18/22 08/23/22 gabapentin 800 mg tablet 800 mg PO TID #270 tabs 07/18/22 08/23/22 clonazepam 1 mg tablet 0.5 mg PO BID 07/26/22 08/23/22 azithromycin 250 mg tablet See Rx Instructions PO .COMPLEX #6 08/09/22 08/16/22 tabs benzonatate 100 mg capsule 100 mg PO TID #30 caps 08/09/22 08/16/22 benzonatate 100 mg capsule 100 mg PO TID #30 caps 08/13/22 08/16/22 polyethylene glycol 3350 17 17 g PO BID PRN constipation 5 08/23/22 gram/dose oral powder (Miralax) days #170 grams Previous Rx's Medication Instructions Recorded cyclobenzaprine 10 mg tablet 10 mg PO BID #180 tabs 04/19/22 trazodone 100 mg tablet 100 mg PO HS #90 tabs 05/13/22 naloxegol 12.5 mg tablet 12.5 mg PO QAM #60 tabs 06/07/22 calcitriol 0.5 mcg capsule 0.5 mcg PO BID #360 caps 06/14/22 calcium carbonate 200 mg calcium 1,000 mg PO BID #0 tabs 06/14/22 (500 mg) chewable tablet (Tums) potassium chloride 20 mEq 20 meq PO DAILY #7 tabs 07/04/22 tablet,extended release (K-Tab) magnesium gluconate 27 mg 27 mg PO BID #30 tabs 07/17/22 magnesium (500 mg) tablet fluoxetine 20 mg capsule 60 mg PO DAILY #270 caps 07/18/22 gabapentin 800 mg tablet 800 mg PO TID #270 tabs 07/18/22 azithromycin 250 mg tablet See Rx Instructions PO .COMPLEX #6 08/09/22 tabs benzonatate 100 mg capsule 100 mg PO TID #30 caps 08/09/22 benzonatate 100 mg capsule 100 mg PO TID #30 caps 08/13/22 polyethylene glycol 3350 17 17 g PO BID PRN constipation 5 08/23/22 gram/dose oral powder (Miralax) days #170 grams Allergies Allergy/AdvReac Type Severity Reaction Status Date / Time codeine Allergy Intermediate Verified 08/23/22 08:05 amoxicillin AdvReac Intermediate Nausea Verified 08/23/22 08:05 General Stated Complaint: Abd Prob ADRIANA: 3 Review of Systems All systems reviewed & are unremarkable except as noted in HPI and below Gastrointestinal Gastrointestinal: Reports abdominal pain, Denies diarrhea, Reports nausea and Denies vomiting Genitourinary Genitourinary: Denies dysuria and Denies flank pain PFSH All Active Problems (Updated 08/23/22 @ 11:12 by Antoinette Templeton NP) Costochondritis (Acute) Pain, dental (Acute) Acute viral syndrome (Acute) Chronic renal disease (Chronic) Cough (Acute) Bronchitis (Acute) Breast lesion (Acute) Back pain (Acute) Epigastric abdominal pain (Acute) Urinary hesitancy (Acute) URI, acute (Acute) Acute pain of left thigh (Acute) Constipation (Acute) Pulmonary nodule 1 cm or greater in diameter (Acute) Therapeutic opioid induced constipation (Acute) Sphincter of Oddi dysfunction (Acute) Abnormal CT scan, kidney (Acute) Intrahepatic bile duct dilation (Acute) Common bile duct dilatation (Acute) Abdominal pain (Acute) Iatrogenic hypocalcemia (Acute) Multiple endocrine neoplasia type I (Chronic) Chronic constipation (Chronic) Primary hyperparathyroidism (Chronic) Depression (Chronic) Hypocalcemia (Chronic) Hypomagnesemia (Chronic) Depression (Chronic) Suicidal ideation (Acute) Elevated parathyroid hormone (Acute) Family history of coronary arteriosclerosis (Chronic) Father of IA at 50, mother had IA at 42 Severe anxiety with panic (Acute) Cellulitis (Acute) Medical History Anxiety Depression Family history of multiple endocrine neoplasia, type 1 Hyperlipidemia Hypocalcemia PTSD (post-traumatic stress disorder) Surgical History H/O parathyroidectomy Family History Mother Anxiety Asthma Depression Sister Anxiety Depression Father Cancer lung & stomach Depression Diabetes Hypertension MEN 1 (multiple endocrine neoplasia) Social History Smoking/Tobacco Use Status: Never Smoking risk assessment performed?: Yes Alcohol Intake: never 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 Adopted: No Caregiver/Support person: No Foster care: No Household members: none Housing: house Number of Children: 0 Communication Needs: None Education Level: high school Do you need help understanding health information?: Never 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 and animals: Yes (Ally) Pets and animals: dog(s) Sexually active: No Do you think of yourself as: straight/heterosexual Current gender identity: male What is your relationship status?: How often do you talk on the phone with friends or family?: twice per week How often do you get together with friends or relatives?: never Do you belong to any clubs or organized social groups?: no Panel score (0-1 are the most socially isolated patients): 0 What type of physical activity do you participate in: walking Duration: 15-30 minutes/day Frequency: 5-6 times per week Maryam/Jew: [employer] Special maryam needs: No Seatbelt use: always Helmet use: Yes Helmet use: always Drive 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 Appears stated age. Normal body habitus. Head: Normocephalic, no trauma. Eyes: Pupils PERRL, Red reflex noted, EOM's intact. Eyelids symmetrical without lesions, discharge, or swelling. ENT: Bilateral TM's WNL, External ear normal to inspection, no mastoid TTP, swelling, or erythema, Nasal turbinates WNL, no nasal discharge. Normal dentition, Posterior pharynx WNL, no exudate. Chest: RRR, Normal S1, S2, distal pulses intact. Resp: Lungs clear to auscultation bilaterally, no wheezes, rales, or rhonchi. Abdomen: Soft, non-distended, Normoactive bowel sounds all 4 quads. Tenderness with palpation mid periumbilical. No masses no guarding noted. Musculoskeletal: Normal gait, 5/5 strength to all four extremities. Skin: No suspicious rashes or lesions. Capillary refill less than 2 sec. Neurologic: Cranial nerves II-XII intact. Alert and oriented x 3. Motor: No deficits noted. Sensory: Intact bilaterally all 4 extremities. Hematologic/Lymphatic: No ecchymosis, no lymphadenopathy. Course Vital Signs Vital signs: Vital Signs Temperature 36.9 C 08/23/22 08:03 Pulse 107 H 08/23/22 08:03 Respiratory Rate 18 08/23/22 08:03 Blood Pressure 138/88 08/23/22 08:03 Pulse Oximetry 97 08/23/22 08:03 Temperature 36.9 C 08/23/22 08:03 Temperature Source Oral 08/23/22 08:03 Pulse 107 H 08/23/22 08:03 Respiratory Rate 18 08/23/22 08:03 Respiratory Effort Normal, Non-Labored 08/23/22 08:04 Blood Pressure 138/88 08/23/22 08:03 Pulse Oximetry 97 08/23/22 08:03 Oxygen Delivery Method Room Air 08/23/22 08:03 Oxygen Flow Rate 0 08/23/22 08:03
[2022-08-23 08:41] LABS: Abs Immature Grans 0.02 10^3/uL (0.0-0.06); Absolute Basophil Count 0.06 10^3/uL (0.0-0.2); Absolute Eosinophil Count 0.27 10^3/uL (0.0-0.7); Absolute Lymphocyte Count 2.63 10^3/uL (1.2-3.4); Absolute Neutrophil Count 4.47 10^3/uL (1.2-6.7); Basophils % 0.7; Eosinophils % 3.2; HCT 33.9 % (40.0-50.0); HGB 11.6 g/dL (13.5-17.5); Immature Grans % 0.2; Lymphocytes % 30.8; MCH 31.4 pg (27.0-33.0); MCHC 34.2 % (32.0-36.0); MCV 92 fL (80-95); MPV 10.7 fL (8.0-11.0); Monocytes % 12.9; Neutrophils % 52.2; Platelet Count 289 10^3/uL (130-400); RBC 3.69 10^6/uL (4.36-5.78); RDW-SD 39.7 fL; WBC 8.55 10^3/uL (4.4-10.8)
[2022-08-23 09:03] LABS: ALT 25 U/L (16-63); AST 17 U/L (15-37); Albumin 3.4 g/dL (3.4-5.0); Alkaline Phosphatase 109 U/L (46-116); Anion Gap 6.4 mmol/L (3-11); BUN 13 mg/dL (7-18); Bilirubin, Total 0.1 mg/dL (0.2-1.0); CO2 34.6 mmol/L (21.0-32.0); CREATININE 1.5 mg/dL (0.70-1.30); Calcium 9.3 mg/dL (8.5-10.1); Chloride 101 mmol/L (98-107); Estimated GFR 64.63 (mL/min/1.73m2); Glucose 103 mg/dL (74-106); Lipase 19 U/L (16-77); Magnesium 1.9 mg/dL (1.8-2.4); Potassium 3.6 mmol/L (3.5-5.1); Sodium 142 mmol/L (136-145); Total Protein 7.6 g/dL (6.4-8.2)
[2022-08-23] MEDS: Famotidine 20 MG/2 ML VIAL IVP (09:18)
[2022-08-23] MEDS: Normal Saline 1,000 ML 1000 ML IV (09:18)
[2022-08-23 09:24] LABS: Bilirubin Negative (Negative); Blood Negative (Negative); Clarity Clear (Clear); Glucose Negative (Negative); Ketones Negative (Negative); Leukocyte Esterase Negative (Negative); Nitrite Negative (Negative); Urobilinogen 0.2 mg/dL (Up to 0.2)
--- NOTE | 2022-08-23 10:24 | DI.CT_ITS ---
Exam(s) CT ABDOMEN PELVIS W EXAM: CT ABDOMEN PELVIS W CLINICAL HISTORY: Periumbilical abdominal pain TECHNIQUE: Imaging Protocol: Axial computed tomography images with coronal and sagittal reformatted images were created and reviewed CONTRAST MATERIAL: Intravenous: Omnipaque 350 Contrast volume:100 mL Oral: No COMPARISON: CT CT ABDOMEN PELVIS W from 05/18/[address] CHEST PE CTA from 06/28/[address] CHEST PE ABD PELVIS W from 08/11/2022 FINDINGS: ABDOMEN: Lung Bases: Normal where visualized. Liver: Normal density. No measurable mass. Portal, Superior Mesenteric, and Splenic Veins: Unremarkable. Gallbladder and Biliary Tract: No radiodense calculus or dilation. Pancreas: Normal density, no abnormal calcifications or inflammatory process. Spleen: Normal. There is a calcified granuloma in the spleen. Adrenals: No masses seen. Kidneys: Normal size, contour and axis. No radiodense stones or obstructive uropathy. There again see n left renal simple cysts. No follow-up is recommended. Abdominal Aorta: Abdominal portion non-dilated. Bowel: No obstruction or bowel wall thickening. No evidence of appendicitis. There is a moderate idalia unt of stool throughout the colon which may represent constipation. Peritoneal Cavity: No ascites, collection or mesenteric inflammatory response. No free air. Lymph Nodes: Within normal limits. Bones: Within normal limits for the patient's age. Soft Tissues: Unremarkable. PELVIS: Bladder: Symmetric distention, no gross wall thickening. Reproductive Organs: Unremarkable as visualized. Lymph Nodes: Within normal limits. Bones: Within normal limits for the patient's age. IMPRESSION: 1. No acute abdominal or pelvic process. 2. Findings were discussed with the emergency department at 11:06 a.m. on 08/23/2022. RADIATION DOSE DELIVERED: 1,308.27mGy.cm Total DLP DATA REPOSITORY: All CT scans at this facility are submitted to the National Radiology Data Registry (NRDR) Dose Index Registry (DIR) with the [employer] ([employer]). RADIATION OPTIMIZATION: All CT scans at this facility use at least one of these dose optimization te chniques: automated exposure control; mA and/or kV adjustment per patient size (includes targeted exa ms where dose is matched to clinical indication); or iterative reconstruction.
[2022-08-23] MEDS: Normal Saline - Diluent 50 ML VIAL IV (10:26)
[2022-08-23] MEDS: Omnipaque 350 MG/ML 500 ML BTL-Imaging package 100 ML IJ (10:27)
--- NOTE | 2022-08-23 11:07 | NUR.NOTE ---
radiologist called about CT results to inform they are negative. This RN took verbal report over the phone
== END 2022-08-23 11:26 | disposition home or self-care (01) ==
PROVIDERS: Emergency Provider Registered Nurse Emergency; PCP Family Medicine
DX: K59.00 Constipation, unspecified (principal); R07.9 Chest pain, unspecified
CPT/HCPCS: 36415; 80053; 83690; 93005; 96361; 96374; 96375; 99284; 99285; 74177; 81003; 83735; 85025; 93010

== ENCOUNTER 2022-08-25 10:59 | Emergency (ER) | payer OTHER, SELFPAY ==
[2022-08-25 11:01] VITALS: BP 137/85; PULSE 100; RESP 18; TEMP 37.1; O2SAT 97
--- NOTE | 2022-08-25 11:30 | RT.EKG_ITS ---
APPROVED REPORT Exam: Resting ECG Reason for Exam: chest pain Patient Location: E HR:95 bpm ECG Measurements Heart Rate 95 AXIS ID 189 P 36 QRSd 99 QRS 38 QT 396 T 17 QTc 498 Conclusion Sinus rhythm...normal P axis, V-rate 60- 99 Prolonged QT interval...QTc >488mS sinus rhythm, normal axis, prolonged QT, nonischemic
--- NOTE | 2022-08-25 11:34 | ED.GENADUL_ITS ---
Discharge Plan Disposition Patient Disposition: Home Condition: Improving Discharge Details Chief Complaint: Abd Prob Clinical Impression: Nausea Primary Care Provider: Brendon Vivar ED Provider: Ajay Kennedy Home Meds and New Rx's Prescriptions: No Action cyclobenzaprine 10 mg tablet 10 mg PO BID Qty: 180 3RF trazodone 100 mg tablet 100 mg PO HS Qty: 90 3RF acetaminophen 325 mg capsule 650 mg PO Q6H PRN polyethylene glycol 3350 [Miralax] 17 gram powder in packet 17 g PO DAILY naloxegol 12.5 mg tablet 12.5 mg PO QAM Qty: 60 0RF Rx Instructions: must be taken on empty stomach; no food 1 hr after or 2-3 hrs before dose fluoxetine 20 mg capsule 60 mg PO DAILY Qty: 270 3RF gabapentin 800 mg tablet 800 mg PO TID Qty: 270 2RF methadone 10 mg/5 mL solution 110 mg PO QAM calcium carbonate [Tums] 200 mg calcium (500 mg) tablet,chewable 1,000 mg PO BID Qty: 0 0RF Hold Instructions: Resume on 06/15/22. calcitriol 0.5 mcg capsule 0.5 mcg PO BID Qty: 360 3RF Hold Instructions: Resume on 06/15/22. clonazepam 1 mg tablet 0.5 mg PO BID polyethylene glycol 3350 [Miralax] 17 gram/dose powder 17 g PO BID PRN (Reason: constipation) 5 Days Qty: 170 0RF Rx Instructions: Mix powder with 8 ounces of fluid twice daily as needed for constipation. Please stop after bowel movement produced. potassium chloride [K-Tab] 20 mEq tablet extended release 20 meq PO DAILY Qty: 7 0RF magnesium gluconate 27 mg magnesium (500 mg) tablet 27 mg PO BID Qty: 30 0RF benzonatate 100 mg capsule 100 mg PO TID Qty: 30 0RF azithromycin 250 mg tablet See Rx Instructions .ROUTE .COMPLEX Qty: 6 0RF Rx Instructions: For 250 mg dose pack: take 500 mg today (day 1), then 250 mg for 4 days (days 2-5) benzonatate 100 mg capsule 100 mg PO TID Qty: 30 0RF Discharge Instructions Instructions: Acute Nausea and Vomiting (ED) Additional Instructions: Please follow-up with your primary care physician Medical Decision Making 26-year-old male history of chronic recurrent chest discomfort, left breast discomfort, presents with nausea and vomiting over the last day. No diarrhea no fevers afebrile nontoxic. Abdomen soft nontender nondistended. Normal chest wall, and normal breast tissue, no active vomiting. Appears well-hydrated. Consider resolving enteritis versus gastritis versus anxiety lower suspicion for ACS cholecystitis appendicitis bowel obstruction or serious bacterial infection. Counseled patient and family regarding trial of medications as patient has had multiple negative work-ups over the past several months I do not wish to put him through further blood test and imaging. At this time they are amenable to trial of medications, will obtain a screening EKG. likely to be discharged home with close follow-up. Comfortably no acute distress. No vomiting. EKG nonischemic. HPI General Date/Time Provider Initiated Documentation: 08/25/22 11:27 . HPI Narrative: 26-year-old male presents with nausea and vomiting, chronic left breast pain and chest discomfort. Is scheduled for a biopsy of left breast tissue given chronic tenderness. No diarrhea no fever. Of note GI illness ran through the family approximately 1 week ago. Related Data Home Medications Medication Instructions Recorded Confirmed methadone 10 mg/5 mL oral solution 110 mg PO QAM 11/16/21 08/25/22 cyclobenzaprine 10 mg tablet 10 mg PO BID #180 tabs 04/19/22 08/25/22 trazodone 100 mg tablet 100 mg PO HS #90 tabs 05/13/22 08/25/22 acetaminophen 325 mg capsule 650 mg PO Q6H PRN 06/07/22 08/25/22 naloxegol 12.5 mg tablet 12.5 mg PO QAM #60 tabs 06/07/22 08/25/22 polyethylene glycol 3350 17 gram 17 g PO DAILY 06/07/22 08/25/22 oral powder packet (Miralax) calcitriol 0.5 mcg capsule 0.5 mcg PO BID #360 caps 06/14/22 08/25/22 calcium carbonate 200 mg calcium 1,000 mg PO BID #0 tabs 06/14/22 08/25/22 (500 mg) chewable tablet (Tums) potassium chloride 20 mEq 20 meq PO DAILY #7 tabs 07/04/22 08/25/22 tablet,extended release (K-Tab) magnesium gluconate 27 mg 27 mg PO BID #30 tabs 07/17/22 08/25/22 magnesium (500 mg) tablet fluoxetine 20 mg capsule 60 mg PO DAILY #270 caps 07/18/22 08/25/22 gabapentin 800 mg tablet 800 mg PO TID #270 tabs 07/18/22 08/25/22 clonazepam 1 mg tablet 0.5 mg PO BID 07/26/22 08/25/22 azithromycin 250 mg tablet See Rx Instructions PO .COMPLEX #6 08/09/22 08/25/22 tabs benzonatate 100 mg capsule 100 mg PO TID #30 caps 08/09/22 08/25/22 benzonatate 100 mg capsule 100 mg PO TID #30 caps 08/13/22 08/25/22 polyethylene glycol 3350 17 17 g PO BID PRN constipation 5 08/23/22 08/25/22 gram/dose oral powder (Miralax) days #170 grams Previous Rx's Medication Instructions Recorded cyclobenzaprine 10 mg tablet 10 mg PO BID #180 tabs 04/19/22 trazodone 100 mg tablet 100 mg PO HS #90 tabs 05/13/22 naloxegol 12.5 mg tablet 12.5 mg PO QAM #60 tabs 06/07/22 calcitriol 0.5 mcg capsule 0.5 mcg PO BID #360 caps 06/14/22 calcium carbonate 200 mg calcium 1,000 mg PO BID #0 tabs 06/14/22 (500 mg) chewable tablet (Tums) potassium chloride 20 mEq 20 meq PO DAILY #7 tabs 07/04/22 tablet,extended release (K-Tab) magnesium gluconate 27 mg 27 mg PO BID #30 tabs 07/17/22 magnesium (500 mg) tablet fluoxetine 20 mg capsule 60 mg PO DAILY #270 caps 07/18/22 gabapentin 800 mg tablet 800 mg PO TID #270 tabs 07/18/22 azithromycin 250 mg tablet See Rx Instructions PO .COMPLEX #6 08/09/22 tabs benzonatate 100 mg capsule 100 mg PO TID #30 caps 08/09/22 benzonatate 100 mg capsule 100 mg PO TID #30 caps 08/13/22 polyethylene glycol 3350 17 17 g PO BID PRN constipation 5 08/23/22 gram/dose oral powder (Miralax) days #170 grams Allergies Allergy/AdvReac Type Severity Reaction Status Date / Time codeine Allergy Intermediate Verified 08/25/22 11:06 amoxicillin AdvReac Intermediate Nausea Verified 08/25/22 11:06 General Stated Complaint: Abd Prob ADRIANA: 3 Review of Systems Narrative: Review of Systems Constitutional: negative Eyes: negative ENT: negative Cardiovascular: Chest pain Respiratory: negative Gastrointestinal: Nausea vomiting abdominal pain : negative Musculoskeletal: negative Skin: negative Neurologic: negative Psych: negative PFSH All Active Problems (Updated 08/25/22 @ 13:02 by Ajay Kennedy MD) Costochondritis (Acute) Pain, dental (Acute) Acute viral syndrome (Acute) Chronic renal disease (Chronic) Cough (Acute) Bronchitis (Acute) Breast lesion (Acute) Back pain (Acute) Epigastric abdominal pain (Acute) Urinary hesitancy (Acute) URI, acute (Acute) Acute pain of left thigh (Acute) Constipation (Acute) Nausea (Acute) Pulmonary nodule 1 cm or greater in diameter (Acute) Therapeutic opioid induced constipation (Acute) Sphincter of Oddi dysfunction (Acute) Abnormal CT scan, kidney (Acute) Intrahepatic bile duct dilation (Acute) Common bile duct dilatation (Acute) Abdominal pain (Acute) Iatrogenic hypocalcemia (Acute) Multiple endocrine neoplasia type I (Chronic) Chronic constipation (Chronic) Primary hyperparathyroidism (Chronic) Depression (Chronic) Hypocalcemia (Chronic) Hypomagnesemia (Chronic) Depression (Chronic) Suicidal ideation (Acute) Elevated parathyroid hormone (Acute) Family history of coronary arteriosclerosis (Chronic) Father of [place] at 50, mother had [place] at 42 Severe anxiety with panic (Acute) Cellulitis (Acute) Medical History Anxiety Depression Family history of multiple endocrine neoplasia, type 1 Hyperlipidemia Hypocalcemia PTSD (post-traumatic stress disorder) Surgical History H/O parathyroidectomy Family History Mother Anxiety Asthma Depression Sister Anxiety Depression Father Cancer lung & stomach Depression Diabetes Hypertension MEN 1 (multiple endocrine neoplasia) Social History Smoking/Tobacco Use Status: Never Smoking risk assessment performed?: Yes Alcohol Intake: never 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 Adopted: No Caregiver/Support person: No Foster care: No Household members: none Housing: house Number of Children: 0 Communication Needs: None Education Level: high school Do you need help understanding health information?: Never 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 and animals: Yes (Ally) Pets and animals: dog(s) Sexually active: No Do you think of yourself as: straight/heterosexual Current gender identity: male What is your relationship status?: How often do you talk on the phone with friends or family?: twice per week How often do you get together with friends or relatives?: never Do you belong to any clubs or organized social groups?: no Panel score (0-1 are the most socially isolated patients): 0 What type of physical activity do you participate in: walking Duration: 15-30 minutes/day Frequency: 5-6 times per week Maryam/Christianity: Alevism Special maryam needs: No Seatbelt use: always Helmet use: Yes Helmet use: always Drive 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 Exam Narrative Exam Narrative: Physical Examination General: alert, awake, cooperative, resting comfortably, no acute distress HEENT: normocephalic, atraumatic; PERRL, EOM intact, conjunctiva normal; no nasal discharge; moist mucous membranes, oral and pharyngeal mucosa normal, tolerating secretions Neck: supple, trachea midline; full ROM Chest: normal to inspection; normal breast tissue Respiratory: normal respiratory effort, speaking in full sentences, clear to auscultation, no wheezing, rales or rhonchi Cardiac: regular rate, regular rhythm, S1S2 intact, no murmurs rubs or gallops GI: abdomen soft, non-tender, non-distended; no palpable mass or hepatosplenomegaly Skin: no lesions, rashes or trauma appreciated Neuro: AAOx3, normal speech, moving all extremities Psych: Anxious appearing Course Vital Signs Vital signs: Vital Signs Temperature 37.1 C 08/25/22 11:01 Pulse 100 H 08/25/22 11:01 Respiratory Rate 18 08/25/22 11:01 Blood Pressure 137/85 08/25/22 11:01 Pulse Oximetry 97 08/25/22 11:01 Temperature 37.1 C 08/25/22 11:01 Temperature Source Skin 08/25/22 11:01 Pulse 100 H 08/25/22 11:01 Respiratory Rate 18 08/25/22 11:01 Blood Pressure 137/85 08/25/22 11:01 Blood Pressure Position Sitting 08/25/22 11:01 Pulse Oximetry 97 08/25/22 11:01 Oxygen Delivery Method Room Air 08/25/22 11:01 Oxygen Flow Rate 0 08/25/22 11:01 Pain Level 7 08/25/22 11:01
[2022-08-25] MEDS: Acetaminophen 325 MG TAB 650 MG PO (11:58)
[2022-08-25] MEDS: LORazepam 1 MG TAB PO (11:58)
[2022-08-25] MEDS: Ondansetron O.D.T. 4 MG TABEF SL (11:58)
--- NOTE | 2022-08-26 08:12 | NUR.NOTE ---
Nursing Note: Accessed patient chart to determine how many EKG orders were in the chart from the ED. There was an outstanding EKG in ordered status. There are no EKG's in the Owned [facility] system that are outstanding. EKG order was deleted.
== END 2022-08-25 13:08 | disposition home or self-care (01) ==
PROVIDERS: Emergency Provider Emergency Medicine; PCP Family Medicine
DX: R11.2 Nausea with vomiting, unspecified (principal); R07.89 Other chest pain; N64.4 Mastodynia; G89.29 Other chronic pain
CPT/HCPCS: 93005; 99283; 93010; 99284

== ENCOUNTER 2022-09-02 08:58 | Outpatient (REF) | payer OTHER, MEDICAID, SELFPAY ==
[2022-09-02 10:19] LABS: TSH 2.76 uIU/mL (0.36-3.74)
[2022-09-02 10:26] LABS: HCG Qual (Serum) Negative
[2022-09-02 17:59] LABS: Estradiol 33 pg/mL (<40)
[2022-09-06 02:54] LABS: Testosterone, Total 99 ng/dL (240-950)
== END 2022-09-02 08:59 | disposition home or self-care (01) ==
LOC: LBN 08:58
PROVIDERS: PCP Family Medicine; Visit Provider Surgery
DX: N64.89 Other specified disorders of breast (principal); Z80.3 Family history of malignant neoplasm of breast; E21.0 Primary hyperparathyroidism; N62 Hypertrophy of breast
CPT/HCPCS: 84403; 82670; 84443; 84703

== ENCOUNTER 2022-09-05 10:09 | Emergency (ER) | payer OTHER, MEDICAID, SELFPAY ==
--- NOTE | 2022-09-05 10:15 | RT.EKG_ITS ---
APPROVED REPORT Exam: Resting ECG Reason for Exam: chest pain Patient Location: E HR:112 bpm ECG Measurements Heart Rate 112 AXIS WY 178 P 60 QRSd 96 QRS 57 QT 335 T 16 QTc 459 Conclusion Sinus tachycardia...rate> 99 Probable left atrial enlargement...P >50mS, <-0.10mV V1 sinus rhythm, normal axis, normal intervals, non ischemic
[2022-09-05 10:24] VITALS: BP 141/83; PULSE 117; RESP 18; TEMP 36.9; O2SAT 98
--- NOTE | 2022-09-05 10:30 | DI.RAD_ITS ---
Exam(s) XR CHEST 2V PA LATERAL EXAM: XR CHEST 2V PA LATERAL CLINICAL HISTORY: chest pain TECHNIQUE: 2D digital imaging was performed of the chest. Two images were obtained. PA and lateral views were obtained. COMPARISON: CR,XR XR CHEST 2V PA LATERAL from 08/11/2022 FINDINGS: MEDIASTINUM: Normal. HEART: Normal. PULMONARY VASCULATURE: Normal. LUNGS: Clear. PLEURAL SPACE: No pleural effusion or pneumothorax. BONE:Within normal limits for the patient's age. OTHER FINDINGS:Normal. IMPRESSION: No acute pulmonary findings. DATA REPOSITORY: RADIATION DOSE DELIVERED:
--- NOTE | 2022-09-05 11:32 | W.ED.GENAD ---
Discharge Plan Disposition Patient Disposition: Home Discharge Details Clinical Impression: Acute epigastric pain, Gastroesophageal reflux disease Primary Care Provider: Brendon Vivar ED Provider: Luh Tsai Home Meds and New Rx's Prescriptions: New sucralfate [Carafate] 1 gram tablet 1 g PO BID Qty: 60 0RF esomeprazole magnesium [Nexium] 20 mg capsule,delayed release(DR/EC) 20 mg PO DAILY Qty: 30 0RF Continued cyclobenzaprine 10 mg tablet 10 mg PO BID Qty: 180 3RF acetaminophen 325 mg capsule 650 mg PO Q6H PRN fluoxetine 20 mg capsule 60 mg PO DAILY Qty: 270 3RF gabapentin 800 mg tablet 800 mg PO TID Qty: 270 2RF methadone 10 mg/5 mL solution 110 mg PO QAM calcium carbonate [Tums] 200 mg calcium (500 mg) tablet,chewable 1,000 mg PO BID Qty: 0 0RF Hold Instructions: Resume on 06/15/22. calcitriol 0.5 mcg capsule 0.5 mcg PO BID Qty: 360 3RF Hold Instructions: Resume on 06/15/22. clonazepam 1 mg tablet 0.5 mg PO BID magnesium gluconate 27 mg magnesium (500 mg) tablet 27 mg PO BID Qty: 30 0RF No Action sucralfate [Carafate] 1 gram tablet 1 gm PO QACHS Qty: 14 0RF Discharge Instructions Instructions: GERD (Gastroesophageal Reflux Disease) (ED), Abdominal Pain (ED) Additional Instructions: Please follow-up with your primary care physician, you may need endoscopy with persistent symptoms Take the Carafate as prescribed and start the Prilosec Stay away from spicy food, fatty food, acidic foods such as tomato and citrus Return she develop new or worsening complaints, small frequent meals recommended Referrals: Brendon Vivar DO [Primary Care Provider] - Discharge Data Discharge Date/Time-TO BE ENTERED AT DEPARTURE: 09/05/22 11:45 Medical Decision Making This 26-year-old male presents with epigastric pain for the past several weeks He has had numerous cardiac work-ups and my suspicion that this is cardiac is quite low, his EKG is within normal limits and his chest x-ray does not show evidence of acute abnormality Patient is tachycardic, this appears to be his baseline when compared to prior I will try Carafate and Prilosec and referred to PCP, he will likely need outpatient endoscopy I did review his labs from 2 weeks prior and I see no clear indication for repeat labs at this time, he is given the threshold to return should he have new or worsening complaints Discharged home in stable condition with stable vitals, return precautions reviewed HPI General Date/Time Provider Initiated Documentation: 09/05/22 10:31. HPI Narrative: This 26-year-old male presents with report of epigastric pain. He states that he states that when he eats and drinks and makes his pain worse. He states he has been having this over the course of the past several weeks. He denies any chest pain or shortness of breath. Denies any nausea or vomiting. He states he has a foul taste in his mouth. He denies any regular alcohol consumption. Related Data Home Medications Medication Instructions Recorded Confirmed methadone 10 mg/5 mL oral solution 110 mg PO QAM 11/16/21 09/09/22 cyclobenzaprine 10 mg tablet 10 mg PO BID #180 tabs 04/19/22 09/09/22 acetaminophen 325 mg capsule 650 mg PO Q6H PRN 06/07/22 09/09/22 calcitriol 0.5 mcg capsule 0.5 mcg PO BID #360 caps 06/14/22 09/09/22 calcium carbonate 200 mg calcium 1,000 mg PO BID #0 tabs 06/14/22 09/09/22 (500 mg) chewable tablet (Tums) magnesium gluconate 27 mg 27 mg PO BID #30 tabs 07/17/22 09/09/22 magnesium (500 mg) tablet fluoxetine 20 mg capsule 60 mg PO DAILY #270 caps 07/18/22 09/09/22 gabapentin 800 mg tablet 800 mg PO TID #270 tabs 07/18/22 09/09/22 clonazepam 1 mg tablet 0.5 mg PO BID 07/26/22 09/09/22 esomeprazole magnesium 20 mg 20 mg PO DAILY #30 caps 09/05/22 09/09/22 capsule,delayed release (Nexium) sucralfate 1 gram tablet (Carafate) 1 g PO BID #60 tabs 09/05/22 09/09/22 sucralfate 1 gram tablet (Carafate) 1 gm PO QACHS #14 tabs 09/08/22 09/09/22 Previous Rx's Medication Instructions Recorded cyclobenzaprine 10 mg tablet 10 mg PO BID #180 tabs 04/19/22 calcitriol 0.5 mcg capsule 0.5 mcg PO BID #360 caps 06/14/22 calcium carbonate 200 mg calcium 1,000 mg PO BID #0 tabs 06/14/22 (500 mg) chewable tablet (Tums) magnesium gluconate 27 mg 27 mg PO BID #30 tabs 07/17/22 magnesium (500 mg) tablet fluoxetine 20 mg capsule 60 mg PO DAILY #270 caps 07/18/22 gabapentin 800 mg tablet 800 mg PO TID #270 tabs 07/18/22 esomeprazole magnesium 20 mg 20 mg PO DAILY #30 caps 09/05/22 capsule,delayed release (Nexium) sucralfate 1 gram tablet (Carafate) 1 g PO BID #60 tabs 09/05/22 sucralfate 1 gram tablet (Carafate) 1 gm PO QACHS #14 tabs 09/08/22 Allergies Allergy/AdvReac Type Severity Reaction Status Date / Time codeine Allergy Intermediate Verified 09/10/22 09:55 amoxicillin AdvReac Intermediate Nausea Verified 09/10/22 09:55 General Stated Complaint: Chest Pain ADRIANA: 3 PFSH All Active Problems (Updated 09/09/22 @ 23:31 by Breonna Bates DO) Back pain (Acute) Epigastric abdominal pain (Acute) Urinary hesitancy (Acute) URI, acute (Acute) Acute pain of left thigh (Acute) Constipation (Acute) Nausea (Acute) Acute epigastric pain (Acute) Gastroesophageal reflux disease (Chronic) Gastritis (Acute) Chest pain (Acute) Anxiety (Chronic) Hypomagnesemia (Acute) Hypocalcemia (Acute) Epigastric abdominal pain (Acute) Encounter for medication administration (Acute) History of anxiety (Acute) Pulmonary nodule 1 cm or greater in diameter (Acute) Therapeutic opioid induced constipation (Acute) Sphincter of Oddi dysfunction (Acute) Abnormal CT scan, kidney (Acute) Intrahepatic bile duct dilation (Acute) Common bile duct dilatation (Acute) Abdominal pain (Acute) Iatrogenic hypocalcemia (Acute) Multiple endocrine neoplasia type I (Chronic) Chronic constipation (Chronic) Primary hyperparathyroidism (Chronic) Depression (Chronic) Hypocalcemia (Chronic) Hypomagnesemia (Chronic) Depression (Chronic) Suicidal ideation (Acute) Elevated parathyroid hormone (Acute) Family history of coronary arteriosclerosis (Chronic) Father of [place] at 50, mother had [place] at 42 Severe anxiety with panic (Acute) Cellulitis (Acute) Medical History Anxiety Depression Family history of multiple endocrine neoplasia, type 1 Hyperlipidemia Hypocalcemia PTSD (post-traumatic stress disorder) Surgical History H/O parathyroidectomy Family History Mother Anxiety Asthma Depression Sister Anxiety Depression Father Cancer lung & stomach Depression Diabetes Hypertension MEN 1 (multiple endocrine neoplasia) Social History Smoking/Tobacco Use Status: Never Smoking risk assessment performed?: Yes Alcohol Intake: never 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 Adopted: No Caregiver/Support person: No Foster care: No Household members: none Housing: house Number of Children: 0 Communication Needs: None Education Level: high school Do you need help understanding health information?: Never 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 and animals: Yes (Ally) Pets and animals: dog(s) Sexually active: No Do you think of yourself as: straight/heterosexual Current gender identity: male What is your relationship status?: How often do you talk on the phone with friends or family?: twice per week How often do you get together with friends or relatives?: never Do you belong to any clubs or organized social groups?: no Panel score (0-1 are the most socially isolated patients): 0 What type of physical activity do you participate in: walking Duration: 15-30 minutes/day Frequency: 5-6 times per week Maryam/Sabianism: Religious Special maryam needs: No Seatbelt use: always Helmet use: Yes Helmet use: always Drive 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 Exam Narrative Exam Narrative: Patient is alert and oriented, no scleral icterus, no chest wall tenderness, lungs clear to auscultation bilaterally, rate rhythm tachycardic, regular, epigastric tenderness on exam, no rebound or guarding, no pallor, fully alert and oriented, no peripheral edema, distal pulses intact Course Vital Signs Vital signs: Vital Signs Temperature 36.9 C 09/05/22 10:24 Pulse 117 H 09/05/22 10:24 Respiratory Rate 18 09/05/22 10:24 Blood Pressure 141/83 H 09/05/22 10:24 Pulse Oximetry 98 09/05/22 10:24 Temperature 36.9 C 09/05/22 10:24 Temperature Source Oral 09/05/22 10:24 Pulse 117 H 09/05/22 10:24 Respiratory Rate 18 09/05/22 10:24 Respiratory Effort Normal, Non-Labored 09/05/22 10:28 Blood Pressure 141/83 H 09/05/22 10:24 Pulse Oximetry 98 09/05/22 10:24 Pain Level 6 09/05/22 10:24
[2022-09-05 11:33] VITALS: RESP 18
[2022-09-05 11:43] VITALS: BP 133/82; PULSE 113; RESP 18; O2SAT 97
== END 2022-09-05 11:45 | disposition home or self-care (01) ==
PROVIDERS: Emergency Provider Physician Assistant; PCP Family Medicine
DX: K21.9 Gastro-esophageal reflux disease without esophagitis (principal); R10.13 Epigastric pain
CPT/HCPCS: 93005; 99284; 71046; 93010

== ENCOUNTER 2022-09-06 05:35 | Emergency (ER) | payer OTHER, MEDICAID, SELFPAY ==
[2022-09-06 05:38] VITALS: BP 126/77; PULSE 91; RESP 16; TEMP 37; O2SAT 96
--- NOTE | 2022-09-06 05:51 | ED.GENADUL_ITS ---
Discharge Plan Disposition Patient Disposition: Home Condition: Stable Discharge Details Clinical Impression: Gastritis Primary Care Provider: Berndon Vivar ED Provider: Ricardo Crabtree Home Meds and New Rx's Prescriptions: Continued cyclobenzaprine 10 mg tablet 10 mg PO BID Qty: 180 3RF acetaminophen 325 mg capsule 650 mg PO Q6H PRN fluoxetine 20 mg capsule 60 mg PO DAILY Qty: 270 3RF gabapentin 800 mg tablet 800 mg PO TID Qty: 270 2RF methadone 10 mg/5 mL solution 110 mg PO QAM calcium carbonate [Tums] 200 mg calcium (500 mg) tablet,chewable 1,000 mg PO BID Qty: 0 0RF Hold Instructions: Resume on 06/15/22. calcitriol 0.5 mcg capsule 0.5 mcg PO BID Qty: 360 3RF Hold Instructions: Resume on 06/15/22. clonazepam 1 mg tablet 0.5 mg PO BID magnesium gluconate 27 mg magnesium (500 mg) tablet 27 mg PO BID Qty: 30 0RF sucralfate [Carafate] 1 gram tablet 1 g PO BID Qty: 60 0RF esomeprazole magnesium [Nexium] 20 mg capsule,delayed release(DR/EC) 20 mg PO DAILY Qty: 30 0RF Discharge Instructions Instructions: Gastritis (ED) Additional Instructions: you can use over the counter remedies such as mylanta, follow dosing instructions on the packaging if you have gas discomfort you can try taking simethicone or gas-x follow up with your primary care provider within 1-2 weeks if you feel more ill, have severe worsening pain or persistent vomiting return to the emergency department Medical Decision Making 26 yo male who comes in with 2 days of epigastric burning and pain. He has had similar pain in the past and has had a CT at the end of July and also on 08/23 which did not show acute findings. HE was seen yesterday and was advised he could have an ulcer so was given medication and d/c'd. This was during a down time so the record of this visit isn't viewable as of now. HE states he still has a burning and pain in the epigastric region. No chest pain, dyspnea, fevers, vomiting. HE has a soft abdomen with mild tenderness in the epigastric area, no lower abdominal tenderness, no conrad's sign. Suspect this could be gastritis, unlikely cholecystitis or other surgical pathology especially with recent ct imaging that was normal. Will trial po gi cocktail and reassess. pt feels improved with no abdominal tenderness now, suspect gastritis, will have him use otc therapies, advised to f/u with pcp and return precautions given Differential Diagnosis Differential Diagnosis: gastritis, esophagitis, ulcer HPI General Mode of arrival: ambulatory . Date/Time Provider Initiated Documentation: 09/06/22 05:44 . Limitations to Documentation: no limitations . Information obtained by: patient . History of Present Illness 26 year old M presents to the emergency department with the chief complaint of epigastric pain, described as moderate, Quality is described as burning, and is localized to the abdomen. Patient reports no radiation. Patient started experiencing this day(s) (2) and it has been constant. No relieving factors improve symptom(s), No exacerbating factors reported . Patient notes no other symptoms.. Related Data Home Medications Medication Instructions Recorded Confirmed methadone 10 mg/5 mL oral solution 110 mg PO QAM 11/16/21 09/05/22 cyclobenzaprine 10 mg tablet 10 mg PO BID #180 tabs 04/19/22 09/05/22 acetaminophen 325 mg capsule 650 mg PO Q6H PRN 06/07/22 09/05/22 calcitriol 0.5 mcg capsule 0.5 mcg PO BID #360 caps 06/14/22 09/05/22 calcium carbonate 200 mg calcium 1,000 mg PO BID #0 tabs 06/14/22 09/05/22 (500 mg) chewable tablet (Tums) magnesium gluconate 27 mg 27 mg PO BID #30 tabs 07/17/22 09/05/22 magnesium (500 mg) tablet fluoxetine 20 mg capsule 60 mg PO DAILY #270 caps 07/18/22 09/05/22 gabapentin 800 mg tablet 800 mg PO TID #270 tabs 07/18/22 09/05/22 clonazepam 1 mg tablet 0.5 mg PO BID 07/26/22 09/05/22 esomeprazole magnesium 20 mg 20 mg PO DAILY #30 caps 09/05/22 capsule,delayed release (Nexium) sucralfate 1 gram tablet (Carafate) 1 g PO BID #60 tabs 09/05/22 Previous Rx's Medication Instructions Recorded cyclobenzaprine 10 mg tablet 10 mg PO BID #180 tabs 11/04/22 calcitriol 0.5 mcg capsule 0.5 mcg PO BID #360 caps 06/14/22 calcium carbonate 200 mg calcium 1,000 mg PO BID #0 tabs 06/14/22 (500 mg) chewable tablet (Tums) magnesium gluconate 27 mg 27 mg PO BID #30 tabs 07/17/22 magnesium (500 mg) tablet fluoxetine 20 mg capsule 60 mg PO DAILY #270 caps 07/18/22 gabapentin 800 mg tablet 800 mg PO TID #270 tabs 07/18/22 esomeprazole magnesium 20 mg 20 mg PO DAILY #30 caps 09/05/22 capsule,delayed release (Nexium) sucralfate 1 gram tablet (Carafate) 1 g PO BID #60 tabs 09/05/22 Allergies Allergy/AdvReac Type Severity Reaction Status Date / Time codeine Allergy Intermediate Verified 09/05/22 10:28 amoxicillin AdvReac Intermediate Nausea Verified 09/05/22 10:28 General Stated Complaint: Abd Prob ADRIANA: 3 Review of Systems All systems reviewed & are unremarkable except as noted in HPI and below Constitutional Constitutional: Denies chills, Denies fever(s) and Denies weakness Eyes Eyes: Denies loss of vision Cardiovascular Cardiovascular: Denies dyspnea Respiratory Respiratory: Denies cough and Denies dyspnea Gastrointestinal Gastrointestinal: Denies vomiting Musculoskeletal Musculoskeletal: Denies joint swelling Integumentary/Breasts Skin/Breast: Denies rash Neurologic Neurologic: Denies loss of vision and Denies weakness PFSH All Active Problems (Updated 09/06/22 @ 06:45 by Ricardo Crabtree MD) Cough (Acute) Bronchitis (Acute) Breast lesion (Acute) Back pain (Acute) Epigastric abdominal pain (Acute) Urinary hesitancy (Acute) URI, acute (Acute) Acute pain of left thigh (Acute) Constipation (Acute) Nausea (Acute) Acute epigastric pain (Acute) Gastroesophageal reflux disease (Chronic) Gastritis (Acute) Pulmonary nodule 1 cm or greater in diameter (Acute) Therapeutic opioid induced constipation (Acute) Sphincter of Oddi dysfunction (Acute) Abnormal CT scan, kidney (Acute) Intrahepatic bile duct dilation (Acute) Common bile duct dilatation (Acute) Abdominal pain (Acute) Iatrogenic hypocalcemia (Acute) Multiple endocrine neoplasia type I (Chronic) Chronic constipation (Chronic) Primary hyperparathyroidism (Chronic) Depression (Chronic) Hypocalcemia (Chronic) Hypomagnesemia (Chronic) Depression (Chronic) Suicidal ideation (Acute) Elevated parathyroid hormone (Acute) Family history of coronary arteriosclerosis (Chronic) Father of [place] at 50, mother had [place] at 42 Severe anxiety with panic (Acute) Cellulitis (Acute) Medical History Anxiety Depression Family history of multiple endocrine neoplasia, type 1 Hyperlipidemia Hypocalcemia PTSD (post-traumatic stress disorder) Surgical History H/O parathyroidectomy Family History Mother Anxiety Asthma Depression Sister Anxiety Depression Father Cancer lung & stomach Depression Diabetes Hypertension MEN 1 (multiple endocrine neoplasia) Social History Smoking/Tobacco Use Status: Never Smoking risk assessment performed?: Yes Alcohol Intake: never 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 Adopted: No Caregiver/Support person: No Foster care: No Household members: none Housing: house Number of Children: 0 Communication Needs: None Education Level: high school Do you need help understanding health information?: Never 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 and animals: Yes (Ally) Pets and animals: dog(s) Sexually active: No Do you think of yourself as: straight/heterosexual Current gender identity: male What is your relationship status?: How often do you talk on the phone with friends or family?: twice per week How often do you get together with friends or relatives?: never Do you belong to any clubs or organized social groups?: no Panel score (0-1 are the most socially isolated patients): 0 What type of physical activity do you participate in: walking Duration: 15-30 minutes/day Frequency: 5-6 times per week Maryam/Yazidism: Sabianist Special maryam needs: No Seatbelt use: always Helmet use: Yes Helmet use: always Drive 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 local combination truck 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 Exam Const General: no acute distress Orientation: alert HENMT Head: normal to inspection Ears: external ears normal General nose exam: external nose normal Mouth: moist mucous membranes Eyes General: appearance normal, both eyes and all related structures Neck Neck: normal visual inspection Resp Effort & Inspection: normal respiratory effort and able to speak in complete sentences Auscultation: clear to auscultation bilaterally Cardio Jugular venous pressure: no JVD Rate: regular rate Heart Sounds: no murmurs GI Palpation: soft and tender Skin General skin exam: no rashes or lesions noted Neuro General: patient alert and patient oriented x3 Extrem General: normal to inspection Psych Mental Status: mental status grossly normal Course Vital Signs Vital signs: Vital Signs Temperature 37.0 C 09/06/22 05:38 Pulse 91 H 09/06/22 05:38 Respiratory Rate 16 09/06/22 05:38 Blood Pressure 126/77 09/06/22 05:38 Pulse Oximetry 96 09/06/22 05:38 Temperature 37.0 C 09/06/22 05:38 Temperature Source Oral 09/06/22 05:38 Pulse 91 H 09/06/22 05:38 Respiratory Rate 16 09/06/22 05:38 Blood Pressure 126/77 09/06/22 05:38 Blood Pressure Position Sitting 09/06/22 05:38 Pulse Oximetry 96 09/06/22 05:38 Oxygen Delivery Method Room Air 09/06/22 05:38 Oxygen Flow Rate 0 09/06/22 05:38
== END 2022-09-06 10:54 | disposition home or self-care (01) ==
PROVIDERS: Emergency Provider Emergency Medicine; PCP Family Medicine
DX: K29.70 Gastritis, unspecified, without bleeding (principal)
CPT/HCPCS: 99283; 99284

== ENCOUNTER 2022-09-06 08:09 | Emergency (ER) | payer OTHER, SELFPAY ==
--- NOTE | 2022-09-06 08:00 | RT.EKG_ITS ---
APPROVED REPORT Exam: Resting ECG Reason for Exam: chest pain Patient Location: E HR:85 bpm ECG Measurements Heart Rate 85 AXIS AK 181 P 42 QRSd 100 QRS 45 QT 417 T 18 QTc 496 Conclusion Sinus rhythm...normal P axis, V-rate 60- 99 Prolonged QT interval...QTc >488mS sinus rhythm, left axis, prolonged QT, non ischemic
[2022-09-06 08:23] VITALS: BP 128/75; PULSE 104; RESP 18; O2SAT 96
--- NOTE | 2022-09-06 08:28 | W.ED.GENAD ---
Discharge Plan Disposition Patient Disposition: Home Discharge Details Chief Complaint: GenMedical Clinical Impression: Chest pain, Anxiety Primary Care Provider: Brendon Vivar ED Provider: Ajay Kennedy Home Meds and New Rx's Prescriptions: No Action cyclobenzaprine 10 mg tablet 10 mg PO BID Qty: 180 3RF acetaminophen 325 mg capsule 650 mg PO Q6H PRN fluoxetine 20 mg capsule 60 mg PO DAILY Qty: 270 3RF gabapentin 800 mg tablet 800 mg PO TID Qty: 270 2RF methadone 10 mg/5 mL solution 110 mg PO QAM calcium carbonate [Tums] 200 mg calcium (500 mg) tablet,chewable 1,000 mg PO BID Qty: 0 0RF Hold Instructions: Resume on 06/15/22. calcitriol 0.5 mcg capsule 0.5 mcg PO BID Qty: 360 3RF Hold Instructions: Resume on 06/15/22. clonazepam 1 mg tablet 0.5 mg PO BID magnesium gluconate 27 mg magnesium (500 mg) tablet 27 mg PO BID Qty: 30 0RF sucralfate [Carafate] 1 gram tablet 1 g PO BID Qty: 60 0RF esomeprazole magnesium [Nexium] 20 mg capsule,delayed release(DR/EC) 20 mg PO DAILY Qty: 30 0RF Discharge Instructions Instructions: Chest Pain (ED), Anxiety (ED) Additional Instructions: Please follow-up with counseling services provided by [facility]. 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 Hemodynamically stable afebrile nontoxic no tachypnea no hypoxia. Lungs clear bilaterally. Neurologically intact moving all extremities. Previously diagnosed with gastritis treated earlier today and discharged home. Patient has had multiple visits over the past several months to years with normal lab and imaging evaluations, of note patient has had at least 1 CT scan per month for the last 6 months. I discussed this at length with the patient and counseled him regarding the potential harms of continued radiation exposure. 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, he also has anxiety and PTSD related to the of his father and the medical issues of his mother. I discussed the real physical manifestations of anxiety and depression with patient and encouraged him to allow us to connect him with outpatient psychiatric resources. Have placed a call to [facility] for in person evaluation here in department. Patient is calm cooperative no SI no HI no harm to himself or others at this time however would greatly benefit from a formal plan by [facility] for close outpatient follow-up. Low suspicion for ACS PE aortic pathology pneumothorax pneumonia or other acute cardiopulmonary process. Patient does take daily clonazepam 1-2 times a day as needed panic symptoms, will dose here in department, will perform EKG. Likely to be discharged home with follow-up for mental health needs 8: 44 EKG normal sinus rhythm normal axis nonischemic Controlled 29 patient resting comfortably no acute distress. Was assessed in person by [facility] staff and set up with close outpatient follow-up. HPI General Date/Time Provider Initiated Documentation: 09/06/22 08:13. HPI Narrative: 46-year-old male history of anxiety, depression, prior substance use in recovery, presents with anterior chest discomfort was seen earlier today with nausea diagnosed with potential gastritis. Has sensation of lightheadedness and chest pain this morning while sitting on the couch, nonexertional nonradiating. Related Data Home Medications Medication Instructions Recorded Confirmed methadone 10 mg/5 mL oral solution 110 mg PO QAM 11/16/21 09/06/22 cyclobenzaprine 10 mg tablet 10 mg PO BID #180 tabs 04/19/22 09/06/22 acetaminophen 325 mg capsule 650 mg PO Q6H PRN 06/07/22 09/06/22 calcitriol 0.5 mcg capsule 0.5 mcg PO BID #360 caps 06/14/22 09/06/22 calcium carbonate 200 mg calcium 1,000 mg PO BID #0 tabs 06/14/22 09/06/22 (500 mg) chewable tablet (Tums) magnesium gluconate 27 mg 27 mg PO BID #30 tabs 07/17/22 09/06/22 magnesium (500 mg) tablet fluoxetine 20 mg capsule 60 mg PO DAILY #270 caps 07/18/22 09/06/22 gabapentin 800 mg tablet 800 mg PO TID #270 tabs 07/18/22 09/06/22 clonazepam 1 mg tablet 0.5 mg PO BID 07/26/22 09/06/22 esomeprazole magnesium 20 mg 20 mg PO DAILY #30 caps 09/05/22 09/06/22 capsule,delayed release (Nexium) sucralfate 1 gram tablet (Carafate) 1 g PO BID #60 tabs 09/05/22 09/06/22 Previous Rx's Medication Instructions Recorded cyclobenzaprine 10 mg tablet 10 mg PO BID #180 tabs 04/19/22 calcitriol 0.5 mcg capsule 0.5 mcg PO BID #360 caps 06/14/22 calcium carbonate 200 mg calcium 1,000 mg PO BID #0 tabs 06/14/22 (500 mg) chewable tablet (Tums) magnesium gluconate 27 mg 27 mg PO BID #30 tabs 07/17/22 magnesium (500 mg) tablet fluoxetine 20 mg capsule 60 mg PO DAILY #270 caps 07/18/22 gabapentin 800 mg tablet 800 mg PO TID #270 tabs 07/18/22 esomeprazole magnesium 20 mg 20 mg PO DAILY #30 caps 09/05/22 capsule,delayed release (Nexium) sucralfate 1 gram tablet (Carafate) 1 g PO BID #60 tabs 09/05/22 Allergies Allergy/AdvReac Type Severity Reaction Status Date / Time codeine Allergy Intermediate Verified 09/06/22 08:29 amoxicillin AdvReac Intermediate Nausea Verified 09/06/22 08:29 General ADRIANA: 3 Review of Systems Narrative: Review of Systems Constitutional: negative Eyes: negative ENT: negative Cardiovascular: Chest pain, lightheadedness Respiratory: negative Gastrointestinal: negative : negative Musculoskeletal: negative Skin: negative Neurologic: negative Psych: negative PFSH All Active Problems (Updated 09/06/22 @ 11:30 by Ajay Kennedy MD) Cough (Acute) Bronchitis (Acute) Breast lesion (Acute) Back pain (Acute) Epigastric abdominal pain (Acute) Urinary hesitancy (Acute) URI, acute (Acute) Acute pain of left thigh (Acute) Constipation (Acute) Nausea (Acute) Acute epigastric pain (Acute) Gastroesophageal reflux disease (Chronic) Gastritis (Acute) Chest pain (Acute) Anxiety (Chronic) Pulmonary nodule 1 cm or greater in diameter (Acute) Therapeutic opioid induced constipation (Acute) Sphincter of Oddi dysfunction (Acute) Abnormal CT scan, kidney (Acute) Intrahepatic bile duct dilation (Acute) Common bile duct dilatation (Acute) Abdominal pain (Acute) Iatrogenic hypocalcemia (Acute) Multiple endocrine neoplasia type I (Chronic) Chronic constipation (Chronic) Primary hyperparathyroidism (Chronic) Depression (Chronic) Hypocalcemia (Chronic) Hypomagnesemia (Chronic) Depression (Chronic) Suicidal ideation (Acute) Elevated parathyroid hormone (Acute) Family history of coronary arteriosclerosis (Chronic) Father of [place] at 50, mother had [place] at 42 Severe anxiety with panic (Acute) Cellulitis (Acute) Medical History Anxiety Depression Family history of multiple endocrine neoplasia, type 1 Hyperlipidemia Hypocalcemia PTSD (post-traumatic stress disorder) Surgical History H/O parathyroidectomy Family History Mother Anxiety Asthma Depression Sister Anxiety Depression Father Cancer lung & stomach Depression Diabetes Hypertension MEN 1 (multiple endocrine neoplasia) Social History Smoking/Tobacco Use Status: Never Smoking risk assessment performed?: Yes Alcohol Intake: never 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 Adopted: No Caregiver/Support person: No Foster care: No Household members: none Housing: house Number of Children: 0 Communication Needs: None Education Level: high school Do you need help understanding health information?: Never 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 and animals: Yes (Ally) Pets and animals: dog(s) Sexually active: No Do you think of yourself as: straight/heterosexual Current gender identity: male What is your relationship status?: How often do you talk on the phone with friends or family?: twice per week How often do you get together with friends or relatives?: never Do you belong to any clubs or organized social groups?: no Panel score (0-1 are the most socially isolated patients): 0 What type of physical activity do you participate in: walking Duration: 15-30 minutes/day Frequency: 5-6 times per week Maryam/Buddhist: Christianity Special maryam needs: No Seatbelt use: always Helmet use: Yes Helmet use: always Drive 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 driver starting gate: No Do you feel safe at home: Yes Do you feel safe in your relationship?: Yes Exam Narrative Exam Narrative: Physical Examination General: alert, awake, cooperative, anxious appearing HEENT: normocephalic, atraumatic; PERRL, EOM intact, conjunctiva normal; no nasal discharge; moist mucous membranes, oral and pharyngeal mucosa normal, tolerating secretions Neck: supple, trachea midline; full ROM Chest: normal to inspection Respiratory: normal respiratory effort, speaking in full sentences, clear to auscultation, no wheezing, rales or rhonchi Cardiac: regular rate, regular rhythm, S1S2 intact, no murmurs rubs or gallops GI: abdomen soft, non-tender, non-distended; no palpable mass or hepatosplenomegaly Skin: no lesions, rashes or trauma appreciated Neuro: AAOx3, normal speech, moving all extremities Psych: Anxiety
[2022-09-06 08:31] VITALS: RESP 18
[2022-09-06] MEDS: clonazePAM 0.5 MG TAB PO (08:38)
--- NOTE | 2022-09-06 11:38 | PDOC.MHCN ---
Date of service: 09/06/22 Time of Service: 10:06 PHQ-9 Over the last 2 weeks, how often have you been bothered by any of the following problems? 1. Little interest or pleasure in doing things: several days 2. Feeling down, depressed, or hopeless: several days 3. Trouble falling or staying asleep, or sleeping too much: nearly every day 4. Feeling tired or having little energy: more than half the days 5. Poor appetite or overeating: several days 6. Feeling bad about yourself - or that you are a failure or have let yourself and your family down: several days 7. Trouble concentrating on things, such as reading the newspaper or watching television: not at all 8. Moving or speaking so slowly that other people could have noticed? - Or the opposite - being so fidgety or restless that you have been moving around a lot more than usual: not at all 9. Thoughts that you would be better off or of hurting yourself in some way: not at all Total score: 9 If you checked off any problems, how difficult have these problems made it for you to do your work, take care of things at home, or get along with other people?: somewhat difficult Source: Developed by Drs. Santiago Olivares, Yany Walker, Allan Guzman and colleagues, with an educational lauren from [employer]. Suicide Severity Rate CSSRS Have you wished you were or wished you could go to sleep and not wake up?: No Have you actually had any thoughts of killing yourself?: No CSSRS3 Have you ever done anything, started to do anything or prepared to do anything to end your life?: Yes CSSRS4 Was this within the past three months?: No Screening Score Total Score: 2 Screening: Positive Mental Health Emergency Note Release [facility] release signed:: Yes Reason for Visit Client was assessed by this scientific technical writer for F2F screening in-person at [facility]. Client reports, I got nervous because I was having chest pains and my anxiety went up because I was having thoughts, I was going to have a heart attack and pass away like my father did 3/4 years ago. I came to the hospital this am and was discharged, however went home and was still having symptoms and came back to be see again. In the last 2 weeks has the pt presented for ES prior to today?: Unknown Client Information Client is: Adult Outpatient Well Housed: Yes Non Suicidal Self Injury Current: No History: No Safety Risk/Harm to Self or Others Current Ideation to Harm Self or Others: No Risk: Does risk to harm exist?: No Risk: Low Risk (Client denies currently endorsing SI/NSSI. Client denies intent/plan.) Duty to warn indicated: No Asssessment/Mental Status Appearance: Disheveled Attitude: Cooperative Behavior: Unremarkable Speech: Normal Affect: Flat and Cogruent with mood Mood: Sad, Stressed, Depressed and Anxious (Client reports current mood as tired) Thought process: Unremarkable Hallucinations: No evidence (Client denies) Delusions: No evidence (Client denies ) Attention: Wandering (Towards the end of the screening client appeared to be having difficulty focusing on what this scientific technical writer was stating ) Perception: Not impaired Orientation: Fully orientated Memory: Intact Insight: Good (Client was able to advocate what level of MH services he was in need of currently. Client declined care bed/IP tx referral due to not needing that level of care.) Judgement: Good (Client was able to advocate what level of MH services he was in need of currently. Client declined care bed/IP tx referral due to not needing that level of care. ) Neurovegetative Symptoms Sleep: Decrease (Client reports decrease in sleep habits within the past two weeks per PHQ-9. Client reports typically getting between 4 hrs. of rest per night. Client reports difficulties staying asleep. ) Appetitie: No change (Client reports typically eating three meals per day.) Interests: Decrease (Client reports decrease in interests within the past two weeks per PHQ-9. ) Energy: Decrease (Client reports decrease in energy within the past two weeks per PHQ-9. 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 ) Do you use nicotine?: No Have you used substances in the last 7 days?: No Additional Issues: Assaultive/Threatening Behavior: No Medical Concerns: Yes Client engaged in active self harm w/weapon: No Threatening to run away: No Child reported abuse/neglect: No Voluntarily presenting for services: Yes Domestic violence is a concern: No Extreme Psychosis or extreme behavior is present: No Impression Client is known to [facility] and is an open client. Client is a 26 yr. male that resides in [place], [place] with his mother Annabella. Client reports he presented to the ED twice on the morning of 09.06 for increased anxiety and chest pain. Client denies currently endorsing SI/NSSI/HI. Client denies intent/plan. Client reports on a self rated scale from 0-10, 0 being not at all to 10 being 100%, if he were to leave the ED he would find a way to harm himself in some way, client rated himself a 0. Client denies past hx of NSSI. Client reports past hx. of suicide attempt of intentional overdose of 15/20 pills of sleeping medication three/four years ago. Client reports in result to this incident, client sought medical attention and received IP MH tx. from . Client reports his father 3/4 years ago which contributed to his thoughts of SI. Client also reports past family hx of suicide, client reports his aunt ended her life by suicide one year prior. Client demostrates good insight/judgment and was able to advocate to this scientific technical writer he felt he did not need the level of care such as: carebed/IP MH tx. Resources Reosurces reviewed and given:: [id number], [facility] (Referral for therapy through [facility] will be submitted by this scientific technical writer on 09/06 on client's behalf ) and Other (06/01 contact number was provided to client. Client was encouraged to call ES for support as needed. ) Plan/Disposition Recommended Disposition: [facility] Services [facility] Services: Therapy. Plan: Client will be discharged from ED. It should be noted, client declined to partake/engage in developing a SP with this scientific technical writer. At this current time, client does not present as a risk to himself/others. Client is requesting to partake in least restrictive option of engaging in AOP services, such as: Therapy through [facility]. This scientific technical writer will submit therapy referral on client's behalf on 09/06. In addition, client has agreed to outreach to ES, as needed when experiencing heightened levels of anxiety. Person reported agreement to plan: Yes Reports/communication Outcome discussed with: ED/Personnel (This scientific technical writer consulted with attending physician Dr. Kennedy prior to and after conclusion of F2F screening. Dr. Kennedy reports agreeance of developed disposition plan. )
== END 2022-09-06 11:43 | disposition home or self-care (01) ==
PROVIDERS: Emergency Provider Emergency Medicine; PCP Family Medicine
DX: R07.89 Other chest pain (principal); F41.9 Anxiety disorder, unspecified
CPT/HCPCS: 36415; 93005; 99283; 93010; 99284

== ENCOUNTER 2022-09-07 15:08 | Outpatient (REF) | payer OTHER, MEDICAID, SELFPAY ==
[2022-09-10 23:52] LABS: Iron 56 ug/dL (65-175); Total Iron Binding Capacity 255 ug/dL (250-450); Transferrin Sat 22 % (20-55)
[2022-09-11 00:06] LABS: Ferritin 118 ng/mL (26-388); TSH 2.06 uIU/mL (0.36-3.74)
[2022-09-11 10:02] LABS: Lab Add On Test DONE
[2022-09-11 16:36] LABS: Lab Add On Test DONE
[2022-09-11 16:40] LABS: Lab Add On Test DONE
[2022-09-12 09:25] LABS: Prolactin 12.8 ng/mL
== END 2022-09-07 15:09 | disposition home or self-care (01) ==
LOC: LBN 15:08
PROVIDERS: PCP Family Medicine; Visit Provider Student in an Organized Health Care Education/Training Program
DX: D64.9 Anemia, unspecified (principal); E83.42 Hypomagnesemia; E83.51 Hypocalcemia; F32.A Depression, unspecified; K59.00 Constipation, unspecified; Z83.41 Family history of multiple endocrine neoplasia [MEN] syndrome
CPT/HCPCS: 82728; 83540; 83550; 84146; 84443

== ENCOUNTER 2022-09-07 21:15 | Emergency (ER) | payer OTHER, SELFPAY ==
[2022-09-07 21:22] VITALS: BP 135/96; PULSE 110; RESP 20; TEMP 37.6; O2SAT 98
--- NOTE | 2022-09-07 21:22 | ED.GENADUL_ITS ---
Discharge Plan Discharge Details Chief Complaint: Abd Prob Clinical Impression: Hypomagnesemia, Hypocalcemia Primary Care Provider: Brendon Vivar ED Provider: Pedro Wolfe Home Meds and New Rx's Prescriptions: No Action cyclobenzaprine 10 mg tablet 10 mg PO BID Qty: 180 3RF acetaminophen 325 mg capsule 650 mg PO Q6H PRN fluoxetine 20 mg capsule 60 mg PO DAILY Qty: 270 3RF gabapentin 800 mg tablet 800 mg PO TID Qty: 270 2RF methadone 10 mg/5 mL solution 110 mg PO QAM calcium carbonate [Tums] 200 mg calcium (500 mg) tablet,chewable 1,000 mg PO BID Qty: 0 0RF Hold Instructions: Resume on 06/15/22. calcitriol 0.5 mcg capsule 0.5 mcg PO BID Qty: 360 3RF Hold Instructions: Resume on 06/15/22. clonazepam 1 mg tablet 0.5 mg PO BID magnesium gluconate 27 mg magnesium (500 mg) tablet 27 mg PO BID Qty: 30 0RF sucralfate [Carafate] 1 gram tablet 1 g PO BID Qty: 60 0RF esomeprazole magnesium [Nexium] 20 mg capsule,delayed release(DR/EC) 20 mg PO DAILY Qty: 30 0RF Medical Decision Making This is a 26-year-old male well-known to the emergency department with 31 visits this year now with recurrent abdominal pain. He has not been vomiting to suggest small bowel obstruction and he has never had any abdominal surgeries making him lower risk for SBO. No testicular pain to suggest torsion. No pain out of proportion to suggest necrotizing soft tissue infection. No specific right lower quadrant tenderness to suggest appendicitis. No chest pain to suggest ACS. Given his elevated BMI pancreatitis is also a possibility so we will check lipase. Patient has attempted treatment at home with acetaminophen so we will attempt treatment with ketorolac. Patient does not have lateralizing pain to suggest ureterolithiasis. Patient did have a CT abdomen pelvis performed earlier this month showing no acute abnormalities. Patient had no radiodense stones on CT report from earlier this month. As a result and given the patient's frequent ED presentations I do not feel that he requires an emergent CT scan. We will attempt treatment for functional abdominal pain with famotidine in the event that there is a component of reflux, Maalox, and ondansetron for nausea in addition to fluids and ketorolac for analgesia. Patient has not had any recent foreign travel to suggest atypical infection. Given that it is the winter my suspicion for giardiasis is exceedingly low and furthermore patient has not had any diarrhea. Vital signs significant for tachycardia which the patient has had in the past. Will reassess following fluids. 10:04 PM CBC significant for mild leukocytosis slightly worse compared to prior but improved compared to last month. Baseline normocytic anemia not meeting transfusion requirement. No thrombocytopenia. 10:30 PM Comprehensive metabolic panel significant for mild hypocalcemia which is likely secondary to the patient's multiple endocrine neoplasm and his primary hyperparathyroidism for which he will receive both IV and oral repletion. Given that he is on methadone we will check an ECG to assess for QTc prolongation and add on a magnesium level. Limited bedside abdominal ultrasound significant for cholelithiasis but no signs of acute cholecystitis and no hydronephrosis bilaterally. 11 PM Patient's QTc was fortunately reassuring at 479 ms. His magnesium was slightly low for which she will receive oral repletion. He will have repeat calcium levels and magnesium levels drawn at 11:45 PM. We will sign patient out to overnight provider Dr. Bates. Patient will also require repeat heart rate. Patient has not been vomiting in the emergency department and so anticipate that he will benefit from an empiric trial of expectant outpatient management but will defer this decision to Dr. Bates after her reassessment of his labs and clinical course. I have initiated a p.o. trial in the emergency department. HPI General Date/Time Provider Initiated Documentation: 09/07/22 21:16 . 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 Patient reports that he feels as if his stomach is in a knot. He reports no appetite and nausea. He did have a small bowel movement earlier today. He reports being adherent with his home methadone and having constipation at baseline. He has never had any surgeries to his abdomen. He has not noticed any rashes to his abdomen. He has not taken any falls onto his abdomen. He reports feeling as if he has been sweating has not documented any fevers at home. Pain feels similar to prior episodes of pain in the past. Patient denies chest pain and shortness of eric th. Related Data Home Medications Medication Instructions Recorded Confirmed methadone 10 mg/5 mL oral solution 110 mg PO QAM 11/16/21 09/07/22 cyclobenzaprine 10 mg tablet 10 mg PO BID #180 tabs 04/19/22 09/07/22 acetaminophen 325 mg capsule 650 mg PO Q6H PRN 06/07/22 09/07/22 calcitriol 0.5 mcg capsule 0.5 mcg PO BID #360 caps 06/14/22 09/07/22 calcium carbonate 200 mg calcium 1,000 mg PO BID #0 tabs 06/14/22 09/07/22 (500 mg) chewable tablet (Tums) magnesium gluconate 27 mg 27 mg PO BID #30 tabs 07/17/22 09/07/22 magnesium (500 mg) tablet fluoxetine 20 mg capsule 60 mg PO DAILY #270 caps 07/18/22 09/07/22 gabapentin 800 mg tablet 800 mg PO TID #270 tabs 07/18/22 09/07/22 clonazepam 1 mg tablet 0.5 mg PO BID 07/26/22 09/07/22 esomeprazole magnesium 20 mg 20 mg PO DAILY #30 caps 09/05/22 09/07/22 capsule,delayed release (Nexium) sucralfate 1 gram tablet (Carafate) 1 g PO BID #60 tabs 09/05/22 09/07/22 Previous Rx's Medication Instructions Recorded cyclobenzaprine 10 mg tablet 10 mg PO BID #180 tabs 04/19/22 calcitriol 0.5 mcg capsule 0.5 mcg PO BID #360 caps 06/14/22 calcium carbonate 200 mg calcium 1,000 mg PO BID #0 tabs 06/14/22 (500 mg) chewable tablet (Tums) magnesium gluconate 27 mg 27 mg PO BID #30 tabs 07/17/22 magnesium (500 mg) tablet fluoxetine 20 mg capsule 60 mg PO DAILY #270 caps 07/18/22 gabapentin 800 mg tablet 800 mg PO TID #270 tabs 07/18/22 esomeprazole magnesium 20 mg 20 mg PO DAILY #30 caps 09/05/22 capsule,delayed release (Nexium) sucralfate 1 gram tablet (Carafate) 1 g PO BID #60 tabs 09/05/22 Allergies Allergy/AdvReac Type Severity Reaction Status Date / Time codeine Allergy Intermediate Verified 09/07/22 21:24 amoxicillin AdvReac Intermediate Nausea Verified 09/07/22 21:24 General ADRIANA: 3 PFSH All Active Problems (Updated 09/07/22 @ 23:01 by Pedro Wolfe MD) Cough (Acute) Bronchitis (Acute) Breast lesion (Acute) Back pain (Acute) Epigastric abdominal pain (Acute) Urinary hesitancy (Acute) URI, acute (Acute) Acute pain of left thigh (Acute) Constipation (Acute) Nausea (Acute) Acute epigastric pain (Acute) Gastroesophageal reflux disease (Chronic) Gastritis (Acute) Chest pain (Acute) Anxiety (Chronic) Hypomagnesemia (Acute) Hypocalcemia (Acute) Pulmonary nodule 1 cm or greater in diameter (Acute) Therapeutic opioid induced constipation (Acute) Sphincter of Oddi dysfunction (Acute) Abnormal CT scan, kidney (Acute) Intrahepatic bile duct dilation (Acute) Common bile duct dilatation (Acute) Abdominal pain (Acute) Iatrogenic hypocalcemia (Acute) Multiple endocrine neoplasia type I (Chronic) Chronic constipation (Chronic) Primary hyperparathyroidism (Chronic) Depression (Chronic) Hypocalcemia (Chronic) Hypomagnesemia (Chronic) Depression (Chronic) Suicidal ideation (Acute) Elevated parathyroid hormone (Acute) Family history of coronary arteriosclerosis (Chronic) Father of MA at 50, mother had MA at 42 Severe anxiety with panic (Acute) Cellulitis (Acute) Medical History Anxiety Depression Family history of multiple endocrine neoplasia, type 1 Hyperlipidemia Hypocalcemia PTSD (post-traumatic stress disorder) Surgical History H/O parathyroidectomy Family History Mother Anxiety Asthma Depression Sister Anxiety Depression Father Cancer lung & stomach Depression Diabetes Hypertension MEN 1 (multiple endocrine neoplasia) Social History Smoking/Tobacco Use Status: Never Smoking risk assessment performed?: Yes Alcohol Intake: never 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 Adopted: No Caregiver/Support person: No Foster care: No Household members: none Housing: house Number of Children: 0 Communication Needs: None Education Level: high school Do you need help understanding health information?: Never 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 and animals: Yes (Ally) Pets and animals: dog(s) Sexually active: No Do you think of yourself as: straight/heterosexual Current gender identity: male What is your relationship status?: How often do you talk on the phone with friends or family?: twice per week How often do you get together with friends or relatives?: never Do you belong to any clubs or organized social groups?: no Panel score (0-1 are the most socially isolated patients): 0 What type of physical activity do you participate in: walking Duration: 15-30 minutes/day Frequency: 5-6 times per week Maryam/Baptism: Confucianism Special maryam needs: No Seatbelt use: always Helmet use: Yes Helmet use: always Drive 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 bus 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 Exam Narrative Exam Narrative: General: Well-appearing in no acute distress speaking in complete sentences. Head: Normocephalic, atraumatic Ear, nose, mouth, throat: Grossly normal inspection. Normal voice, handling secretions normally. Neck: Trachea midline. Cardiovascular: Well-perfused distal extremities. Respiratory: Nonlabored respiration. Gastrointestinal: Nondistended abdomen. Generalized tenderness diffusely. No rebound. No guarding. Musculoskeletal: No edema. Moving all 4 extremities spontaneously. Skin: Normal for age and race, grossly normal temperature and turgor. No acute rash. Neurologic: Alert and appropriate, no apparent acute deficits. Psychiatric: Mood and manner are appropriate. Grooming and personal hygiene are appropriate. POCUS Exam (ED) Limited Gallbladder Exam DATE OF EXAM: 09/07/22 TIME OF EXAM: 22:29 REASON FOR VISIT: Abdominal pain VISUALIZED STRUCTURES: Gallbladder PERTINENT FINDINGS/IMPRESSION: Cholelithiasis and Other, Cholelithiasis but no sonographic Cedillo's, no gallbladder wall thickening, nor any pericholecystic fluid. ; No Pericholecystic fluid and No thickening of the gallbladder wall Exam complete Limited Retroperitoneal(Renal)Exam DATE OF EXAM: 09/07/22 TIME OF EXAM: 22:30 REASON FOR EXAM: Other indication: Abdominal pain VISUALIZED STRUCTURES: Left kidney and Right kidney PERTINENT FINDINGS/IMPRESSION: Other impression: No hydronephrosis bilaterally ; no hydronephrosis present Exam complete
[2022-09-07] MEDS: Ketorolac 15 MG/ML VIAL IVP (21:54)
[2022-09-07] MEDS: Ondansetron 4 MG/2 ML VIAL IVP (21:54)
[2022-09-07] MEDS: Famotidine 20 MG/2 ML VIAL 40 MG IVP (21:54)
[2022-09-07] MEDS: Mylanta Suspension 30 ML CUP PO (21:55)
[2022-09-07] MEDS: Normal Saline 1,000 ML 1000 ML IV (21:55)
[2022-09-07 22:00] LABS: Abs Immature Grans 0.03 10^3/uL (0.0-0.06); Absolute Basophil Count 0.03 10^3/uL (0.0-0.2); Absolute Eosinophil Count 0.06 10^3/uL (0.0-0.7); Absolute Lymphocyte Count 1.41 10^3/uL (1.2-3.4); Absolute Monocyte Count 0.92 10^3/uL (0.1-0.8); Absolute Neutrophil Count 9.17 10^3/uL (1.2-6.7); Basophils % 0.3; Eosinophils % 0.5; HCT 33.6 % (40.0-50.0); HGB 11.6 g/dL (13.5-17.5); Immature Grans % 0.3; Lymphocytes % 12.1; MCHC 34.5 % (32.0-36.0); MCV 90 fL (80-95); MPV 10.5 fL (8.0-11.0); Monocytes % 7.9; Neutrophils % 78.9; Platelet Count 278 10^3/uL (130-400); RBC 3.74 10^6/uL (4.36-5.78); RDW 11.9 % (11.8-14.1); RDW-SD 38.9 fL; WBC 11.62 10^3/uL (4.4-10.8)
[2022-09-07 22:15] LABS: ALT 29 U/L (16-63); AST 27 U/L (15-37); Albumin 3.6 g/dL (3.4-5.0); Alkaline Phosphatase 112 U/L (46-116); Anion Gap 7.8 mmol/L (3-11); BUN 20 mg/dL (7-18); Bilirubin, Total 0.4 mg/dL (0.2-1.0); CO2 30.2 mmol/L (21.0-32.0); CREATININE 1.5 mg/dL (0.70-1.30); Calcium 7.9 mg/dL (8.5-10.1); Chloride 100 mmol/L (98-107); Estimated GFR 64.63 (mL/min/1.73m2); Glucose 103 mg/dL (74-106); Lipase 19 U/L (16-77); Sodium 138 mmol/L (136-145); Total Protein 7.9 g/dL (6.4-8.2)
--- NOTE | 2022-09-07 22:15 | RT.EKG_ITS ---
APPROVED REPORT Exam: Resting ECG Reason for Exam: Hypocalcemia Patient Location: E HR:88 bpm ECG Measurements Heart Rate 88 AXIS KS 160 P 31 QRSd 101 QRS 28 QT 396 T 27 QTc 479 Conclusion Sinus rhythm...normal P axis, V-rate 60- 99 Normal sinus rhythm at a rate of 88. Normal axis. Interventricular conduction delay. Reassuring QT c. No ST segment abnormalities. Compared to prior dated earlier this month no acute abnormalities.
[2022-09-07 22:36] LABS: Magnesium 1.7 mg/dL (1.8-2.4)
[2022-09-07] MEDS: Calcium Carbonate 1.5 GM TAB 3 GM PO (22:51)
[2022-09-07] MEDS: Calcium Gluconate 4.65 MEQ/10 ML VIAL 9.3 MG IVP (22:52)
[2022-09-07] MEDS: Magnesium Oxide 400 MG TAB 800 MG PO (23:08)
[2022-09-08 00:19] LABS: Calcium 8.4 mg/dL (8.5-10.1); Magnesium 1.7 mg/dL (1.8-2.4)
--- NOTE | 2022-09-08 00:45 | ED.PROG_ITS ---
Date of service: 09/07/22 Time of Service: 23:00 Medical Decision Making 2299 -- please see Dr. Wolfe's note for initial presentation, exam and plan. Case endorsed to follow-up on repeat calcium and magnesium and patient reassessment. 0030 -- Patient is a 26-year-old male who is well-known to the emergency department with multiple frequent visits for various complaints, usually chest and abdominal pain. Of note, this is patient's 79th visit to the emergency department since June 2021. He presents with crampy and achy epigastric pain that he states is mainly worse with deep breath. He denies any chest pain or difficulty breathing. He admits to nausea but denies any vomiting. 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 He states he has been taking famotidine. He has been prescribed Carafate in the past. His repeat calcium is now near normal at 8.4. His magnesium remains stable at 1.7 but he was given an oral dose for repletion so this may take more time. Patient reassessed and he feels much better and feels comfortable going home. His abdomen is soft and nontender. History and presentation does not appear consistent with ACS, PE or dissection. Discussed with patient that his differential diagnosis can include GERD, gastritis, abdominal gas, cholelithiasis. His white blood cell count was minimally elevated at 11 but with normal liver enzymes, bilirubin and lipase. He has had 11 CT scans, mostly of his chest and abdomen within the last year with the last on August 23 which was unremarkable. We will order an outpatient gallbladder ultrasound for further assessment. He is advised to continue his Pepcid and Carafate as directed. Advised to consider starting a daily MiraLAX or stool softener for his constipation. Patient placed on care management list to try to devise a care plan with pcp office to minimize emergency department visits. Patient also placed on general surgery follow-up list for reevaluation and consideration for EGD. Usual and customary return precautions given prior to discharge. Medical Records Medical records reviewed: Yes I reviewed the patient's medical records. Lab Data Lab results reviewed: Yes I reviewed the patient's lab results. Labs: Laboratory Tests Range/Units 09/07/22 09/07/22 09/07/22 21:51 21:51 21:51 WBC (4.4-10.8) 10^3/uL 11.62 H RBC (4.36-5.78) 10^6/uL 3.74 L Hgb (13.5-17.5) g/dL 11.6 L Hct (40.0-50.0) % 33.6 L MCV (80-95) fL 90 MCH (27.0-33.0) pg 31.0 MCHC (32.0-36.0) % 34.5 RDW (11.8-14.1) % 11.9 Plt Count (130-400) 10^3/uL 278 MPV (8.0-11.0) fL 10.5 Immature Gran % 0.3 Neutrophils % 78.9 Lymphocytes % 12.1 Monocytes % 7.9 Eosinophils % 0.5 Basophils % 0.3 Nucleated RBC % (0.0-0.3) % 0.0 Absolute Neutrophils (1.2-6.7) 10^3/uL 9.17 H Absolute Lymphocytes (1.2-3.4) 10^3/uL 1.41 Absolute Monocytes (0.1-0.8) 10^3/uL 0.92 H Absolute Eosinophils (0.0-0.7) 10^3/uL 0.06 Absolute Basophils (0.0-0.2) 10^3/uL 0.03 Sodium (136-145) mmol/L 138 Potassium (3.5-5.1) mmol/L 4.0 Chloride (98-107) mmol/L 100 Carbon Dioxide (21.0-32.0) mmol/L 30.2 Anion Gap (3-11) mmol/L 7.8 BUN (7-18) mg/dL 20 H Creatinine (0.70-1.30) mg/dL 1.5 H Est GFR (CKD-EPI 2020) (mL/min/1.73m2) 64.63 Glucose (74-106) mg/dL 103 Calcium (8.5-10.1) mg/dL 7.9 L Magnesium (1.8-2.4) mg/dL 1.7 L Total Bilirubin (0.2-1.0) mg/dL 0.4 AST (15-37) U/L 27 ALT (16-63) U/L 29 Alkaline Phosphatase (46-116) U/L 112 Total Protein (6.4-8.2) g/dL 7.9 Albumin (3.4-5.0) g/dL 3.6 Lipase (16-77) U/L 19 Range/Units 09/07/22 23:45 WBC (4.4-10.8) 10^3/uL RBC (4.36-5.78) 10^6/uL Hgb (13.5-17.5) g/dL Hct (40.0-50.0) % MCV (80-95) fL MCH (27.0-33.0) pg MCHC (32.0-36.0) % RDW (11.8-14.1) % Plt Count (130-400) 10^3/uL MPV (8.0-11.0) fL Immature Gran % Neutrophils % Lymphocytes % Monocytes % Eosinophils % Basophils % Nucleated RBC % (0.0-0.3) % Absolute Neutrophils (1.2-6.7) 10^3/uL Absolute Lymphocytes (1.2-3.4) 10^3/uL Absolute Monocytes (0.1-0.8) 10^3/uL Absolute Eosinophils (0.0-0.7) 10^3/uL Absolute Basophils (0.0-0.2) 10^3/uL Sodium (136-145) mmol/L Potassium (3.5-5.1) mmol/L Chloride (98-107) mmol/L Carbon Dioxide (21.0-32.0) mmol/L Anion Gap (3-11) mmol/L BUN (7-18) mg/dL Creatinine (0.70-1.30) mg/dL Est GFR (CKD-EPI 2020) (mL/min/1.73m2) Glucose (74-106) mg/dL Calcium (8.5-10.1) mg/dL 8.4 L Magnesium (1.8-2.4) mg/dL 1.7 L Total Bilirubin (0.2-1.0) mg/dL AST (15-37) U/L ALT (16-63) U/L Alkaline Phosphatase (46-116) U/L Total Protein (6.4-8.2) g/dL Albumin (3.4-5.0) g/dL Lipase (16-77) U/L ECG Data Attestation: I personally reviewed and interpreted this ECG (s) as follows: Interpretation: rate of 88, sinus, normal axis, qtc reassuring and lower than recent baseline, no ischemic findings, no significant change compared to prior ekg. Discharge Plan Disposition Patient Disposition: Home Condition: Improving Discharge Details Clinical Impression: Hypomagnesemia, Hypocalcemia, Epigastric abdominal pain Primary Care Provider: Brendon Vivar ED Provider: Pedro Wolfe [place] Meds and New Rx's Prescriptions: New sucralfate [Carafate] 1 gram tablet 1 gm PO QACHS Qty: 14 0RF Continued cyclobenzaprine 10 mg tablet 10 mg PO BID Qty: 180 3RF acetaminophen 325 mg capsule 650 mg PO Q6H PRN fluoxetine 20 mg capsule 60 mg PO DAILY Qty: 270 3RF gabapentin 800 mg tablet 800 mg PO TID Qty: 270 2RF methadone 10 mg/5 mL solution 110 mg PO QAM calcium carbonate [Tums] 200 mg calcium (500 mg) tablet,chewable 1,000 mg PO BID Qty: 0 0RF Hold Instructions: Resume on 06/15/22. calcitriol 0.5 mcg capsule 0.5 mcg PO BID Qty: 360 3RF Hold Instructions: Resume on 06/15/22. clonazepam 1 mg tablet 0.5 mg PO BID magnesium gluconate 27 mg magnesium (500 mg) tablet 27 mg PO BID Qty: 30 0RF sucralfate [Carafate] 1 gram tablet 1 g PO BID Qty: 60 0RF esomeprazole magnesium [Nexium] 20 mg capsule,delayed release(DR/EC) 20 mg PO DAILY Qty: 30 0RF Discharge Instructions Instructions: Hypocalcemia (ED), Hypomagnesemia (ED), Epigastric Pain (ED) Additional Instructions: Your calcium and magnesium were noted to be low here and you were given calcium and magnesium supplementation here in the emergency department. Continue your regular medications as directed. A prescription for Carafate which can help with upper abdominal pain in the setting of a possible ulcer or gastritis was sent electronically to your pharmacy to take as needed and directed. Continue taking a daily famotidine as directed. You can also consider taking a daily [id number] omeprazole instead of famotidine. An order for an outpatient gallbladder ultrasound has been placed. Please contact the radiology department for scheduling of this test and follow-up with your primary care doctor for the results. You also have been placed on care management list to arrange for a follow-up appointment with general surgery for further evaluation of your chronic abdominal pain. Follow-up with your primary care doctor in 1 week. Return to the emergency department with any worsening or new concerning symptoms. Discharge Data Discharge Date/Time-TO BE ENTERED AT DEPARTURE: 09/08/22 01:07 Discharge Physician: Breonna Bates
[2022-09-08 00:54] VITALS: BP 122/72; PULSE 74; RESP 16; TEMP 36.4; O2SAT 97
--- NOTE | 2022-09-08 02:20 | NUR.NOTE ---
[facility] requistion faxed for abd ultrasound. Patient given a copy of req and abd ultrasound instruction sheet, advised to call [facility] on friday morning for appt. date and time. will f/u with pcp.Nursing Note:
--- NOTE | 2022-09-08 21:17 | NUR.NOTE ---
Referral to Care Management to get a care plan in place to reduce multiple ED visits.Nursing Note:
== END 2022-09-08 01:07 | disposition home or self-care (01) ==
PROVIDERS: Emergency Provider Emergency Medicine; PCP Family Medicine
DX: E83.42 Hypomagnesemia (principal); E83.51 Hypocalcemia; R10.13 Epigastric pain; D72.829 Elevated white blood cell count, unspecified
CPT/HCPCS: 36415; 76705; 76775; 80053; 83690; 93005; 96361; 96374; 96375; 99284; 82310; 83735; 85025; 93010; J0612; J1885; J2405

== ENCOUNTER 2022-09-09 23:01 | Emergency (ER) | payer OTHER, SELFPAY ==
[2022-09-09 23:06] VITALS: BP 142/81; PULSE 102; RESP 20; TEMP 36.8; O2SAT 99
[2022-09-09 23:10] VITALS: RESP 20
--- NOTE | 2022-09-09 23:30 | W.ED.GENAD ---
Discharge Plan Disposition Patient Disposition: Home Condition: Stable Discharge Details Clinical Impression: Encounter for medication administration, History of anxiety Primary Care Provider: Brendon Vivar ED Provider: Breonna Bates Home Meds and New Rx's Prescriptions: Continued cyclobenzaprine 10 mg tablet 10 mg PO BID Qty: 180 3RF acetaminophen 325 mg capsule 650 mg PO Q6H PRN fluoxetine 20 mg capsule 60 mg PO DAILY Qty: 270 3RF gabapentin 800 mg tablet 800 mg PO TID Qty: 270 2RF methadone 10 mg/5 mL solution 110 mg PO QAM calcium carbonate [Tums] 200 mg calcium (500 mg) tablet,chewable 1,000 mg PO BID Qty: 0 0RF Hold Instructions: Resume on 06/15/22. calcitriol 0.5 mcg capsule 0.5 mcg PO BID Qty: 360 3RF Hold Instructions: Resume on 06/15/22. clonazepam 1 mg tablet 0.5 mg PO BID magnesium gluconate 27 mg magnesium (500 mg) tablet 27 mg PO BID Qty: 30 0RF sucralfate [Carafate] 1 gram tablet 1 g PO BID Qty: 60 0RF esomeprazole magnesium [Nexium] 20 mg capsule,delayed release(DR/EC) 20 mg PO DAILY Qty: 30 0RF sucralfate [Carafate] 1 gram tablet 1 gm PO QACHS Qty: 14 0RF Discharge Instructions Instructions: Anxiety (ED) Additional Instructions: You were given 1 dose of clonazepam here and 2 doses to go to take tomorrow as directed. Follow-up with your scheduled appointment with your primary care doctor on Friday for medication refill and continued medication management. Return immediately to the emergency department if you develop any worsening or new concerning symptoms. Discharge Data Discharge Physician: Breonna Bates Medical Decision Making 26-year-old male well-known to the emergency department with multiple frequent visits for various complaints including anxiety presents for request for a few doses of his clonazepam as he states he ran out and will not see his doctor for 2 days. Patient appears anxious but nontoxic. His vitals are consistent with his usual baseline. Patient has had multiple recent extensive work-ups including 2 in the two weeks for complaints of abdominal pain. This is his 9th visit in the last month and 80th visit since Jun 2021 to the ED. Patient is only requesting a dose of his clonazepam now and 2 doses for tomorrow. Do not see an indication for labs or imaging at this time. He was given 1 dose of clonazepam now and 2 to go for tomorrow and will follow-up with his primary care doctor on Friday morning. Usual and customary return precautions given prior to discharge. Medical Records Medical records reviewed: Yes I reviewed the patient's medical records. HPI General Mode of arrival: ambulatory. Date/Time Provider Initiated Documentation: 09/09/22 23:10. Limitations to Documentation: no limitations. Information obtained by: patient. HPI Narrative: Patient is a 26-year-old male well-known to the emergency department with multiple frequent visits for various complaints including anxiety presents for request for a dose of his clonazepam as he states he ran out yesterday afternoon. He states he takes 0.5 mg of clonazepam twice daily. He states his last dose was yesterday afternoon at 430. Patient states he called his primary care doctor and he stated he would need to follow-up with him for refill of his medications and states he has a follow-up appointment with him in 2 days. Patient states he did take his methadone this morning. He states he has been having feelings of anxiety including his usual palpitations when he has not taken his medication. He denies any fever, vomiting, current chest pain or shortness of breath. Related Data Home Medications Medication Instructions Recorded Confirmed methadone 10 mg/5 mL oral solution 110 mg PO QAM 11/16/21 09/09/22 cyclobenzaprine 10 mg tablet 10 mg PO BID #180 tabs 04/19/22 09/09/22 acetaminophen 325 mg capsule 650 mg PO Q6H PRN 06/07/22 09/09/22 calcitriol 0.5 mcg capsule 0.5 mcg PO BID #360 caps 06/14/22 09/09/22 calcium carbonate 200 mg calcium 1,000 mg PO BID #0 tabs 06/14/22 09/09/22 (500 mg) chewable tablet (Tums) magnesium gluconate 27 mg 27 mg PO BID #30 tabs 07/17/22 09/09/22 magnesium (500 mg) tablet fluoxetine 20 mg capsule 60 mg PO DAILY #270 caps 07/18/22 09/09/22 gabapentin 800 mg tablet 800 mg PO TID #270 tabs 07/18/22 09/09/22 clonazepam 1 mg tablet 0.5 mg PO BID 07/26/22 09/09/22 esomeprazole magnesium 20 mg 20 mg PO DAILY #30 caps 09/05/22 09/09/22 capsule,delayed release (Nexium) sucralfate 1 gram tablet (Carafate) 1 g PO BID #60 tabs 09/05/22 09/09/22 sucralfate 1 gram tablet (Carafate) 1 gm PO QACHS #14 tabs 09/08/22 09/09/22 Previous Rx's Medication Instructions Recorded cyclobenzaprine 10 mg tablet 10 mg PO BID #180 tabs 04/19/22 calcitriol 0.5 mcg capsule 0.5 mcg PO BID #360 caps 06/14/22 calcium carbonate 200 mg calcium 1,000 mg PO BID #0 tabs 06/14/22 (500 mg) chewable tablet (Tums) magnesium gluconate 27 mg 27 mg PO BID #30 tabs 07/17/22 magnesium (500 mg) tablet fluoxetine 20 mg capsule 60 mg PO DAILY #270 caps 07/18/22 gabapentin 800 mg tablet 800 mg PO TID #270 tabs 07/18/22 esomeprazole magnesium 20 mg 20 mg PO DAILY #30 caps 09/05/22 capsule,delayed release (Nexium) sucralfate 1 gram tablet (Carafate) 1 g PO BID #60 tabs 09/05/22 sucralfate 1 gram tablet (Carafate) 1 gm PO QACHS #14 tabs 09/08/22 Allergies Allergy/AdvReac Type Severity Reaction Status Date / Time codeine Allergy Intermediate Verified 09/09/22 23:12 amoxicillin AdvReac Intermediate Nausea Verified 09/09/22 23:12 General Stated Complaint: Anxiety ADRIANA: 4 Review of Systems All systems reviewed & are unremarkable except as noted in HPI and below Constitutional Constitutional: Reports as per HPI, Denies chills and Denies fever(s) Eyes Eyes: Denies blurry vision ENT Ears, Nose, Mouth, and Throat: Denies dizziness, Denies sore throat and Denies throat swelling Cardiovascular Cardiovascular: Denies chest pain and Denies dyspnea Respiratory Respiratory: Denies cough and Denies dyspnea Gastrointestinal Gastrointestinal: Denies abdominal pain, Denies diarrhea and Denies vomiting Genitourinary Genitourinary: Denies hematuria and Denies dysuria Musculoskeletal Musculoskeletal: Denies back pain and Denies numbness Integumentary/Breasts Skin/Breast: Denies lesions and Denies rash Neurologic Neurologic: Denies dizziness, Denies localized weakness and Denies numbness Psychiatric Psychiatric: Reports anxiety Allergic/Immunologic Allergic/Immunologic: Denies throat swelling PFSH All Active Problems (Updated 09/09/22 @ 23:31 by Breonna Bates DO) Back pain (Acute) Epigastric abdominal pain (Acute) Urinary hesitancy (Acute) URI, acute (Acute) Acute pain of left thigh (Acute) Constipation (Acute) Nausea (Acute) Acute epigastric pain (Acute) Gastroesophageal reflux disease (Chronic) Gastritis (Acute) Chest pain (Acute) Anxiety (Chronic) Hypomagnesemia (Acute) Hypocalcemia (Acute) Epigastric abdominal pain (Acute) Encounter for medication administration (Acute) History of anxiety (Acute) Pulmonary nodule 1 cm or greater in diameter (Acute) Therapeutic opioid induced constipation (Acute) Sphincter of Oddi dysfunction (Acute) Abnormal CT scan, kidney (Acute) Intrahepatic bile duct dilation (Acute) Common bile duct dilatation (Acute) Abdominal pain (Acute) Iatrogenic hypocalcemia (Acute) Multiple endocrine neoplasia type I (Chronic) Chronic constipation (Chronic) Primary hyperparathyroidism (Chronic) Depression (Chronic) Hypocalcemia (Chronic) Hypomagnesemia (Chronic) Depression (Chronic) Suicidal ideation (Acute) Elevated parathyroid hormone (Acute) Family history of coronary arteriosclerosis (Chronic) Father of MS at 50, mother had MS at 42 Severe anxiety with panic (Acute) Cellulitis (Acute) Medical History Anxiety Depression Family history of multiple endocrine neoplasia, type 1 Hyperlipidemia Hypocalcemia PTSD (post-traumatic stress disorder) Surgical History H/O parathyroidectomy Family History Mother Anxiety Asthma Depression Sister Anxiety Depression Father Cancer lung & stomach Depression Diabetes Hypertension MEN 1 (multiple endocrine neoplasia) Social History Smoking/Tobacco Use Status: Never Smoking risk assessment performed?: Yes Alcohol Intake: never 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 Adopted: No Caregiver/Support person: No Foster care: No Household members: none Housing: house Number of Children: 0 Communication Needs: None Education Level: high school Do you need help understanding health information?: Never 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 and animals: Yes (Ally) Pets and animals: dog(s) Sexually active: No Do you think of yourself as: straight/heterosexual Current gender identity: male What is your relationship status?: How often do you talk on the phone with friends or family?: twice per week How often do you get together with friends or relatives?: never Do you belong to any clubs or organized social groups?: no Panel score (0-1 are the most socially isolated patients): 0 What type of physical activity do you participate in: walking Duration: 15-30 minutes/day Frequency: 5-6 times per week Maryam/Pentecostal: Anglican Special maryam needs: No Seatbelt use: always Helmet use: Yes Helmet use: always 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 Exam Const General: cooperative and anxious Orientation: alert, awake and oriented x3 HENMT Head: normal to inspection Face and sinus: normal facial exam Eyes General: appearance normal, both eyes and all related structures Pupils: PERRL EOM: EOM intact bilaterally Neck Neck: normal visual inspection and No submandibular swelling Lymphatic: no lymphadenopathy noted Chest Chest: normal inspection of the chest and no tenderness Resp Effort & Inspection: normal respiratory effort and able to speak in complete sentences Auscultation: clear to auscultation bilaterally Cardio Rate: regular rate Rhythm: regular rhythm GI Inspection: normal to inspection Palpation: soft, not firm, not rigid and nontender Auscultation: hypoactive bowel sounds Skin General skin exam: no rashes or lesions noted Neuro General: patient alert, patient awake, patient oriented x3 and no meningeal signs Cognition: normal cognition Speech: speech normal Extrem General: normal to inspection, full ROM, capillary refill normal, no calf tenderness bilaterally and no edema Psych Appearance: grossly normal Mental Status: mental status grossly normal Speech and Movement: speech and movement normal Affect: anxious affect Attitude: cooperative Thought Process: normal Thought Content: normal Insight: insight good Course Vital Signs Vital signs: Vital Signs Temperature 98.2 F 09/09/22 23:06 Pulse 102 H 09/09/22 23:06 Respiratory Rate 20 09/09/22 23:06 Blood Pressure 142/81 H 09/09/22 23:06 Pulse Oximetry 99 09/09/22 23:06 Temperature 98.2 F 09/09/22 23:06 Temperature Source Tympanic 09/09/22 23:06 Pulse 102 H 09/09/22 23:06 Respiratory Rate 20 09/09/22 23:10 Respiratory Effort Normal 09/09/22 23:10 Respiratory Depth Normal 09/09/22 23:10 Respiratory Pattern Normal 09/09/22 23:10 Blood Pressure 142/81 H 09/09/22 23:06 Blood Pressure Position Sitting 09/09/22 23:06 Pulse Oximetry 99 09/09/22 23:06 Oxygen Delivery Method Room Air 09/09/22 23:06 Oxygen Flow Rate 0 09/09/22 23:06
[2022-09-09] MEDS: clonazePAM 0.5 MG TAB 1 MG PO (23:37)
[2022-09-09] MEDS: clonazePAM 0.5 MG TAB PO (23:37)
== END 2022-09-09 23:21 | disposition home or self-care (01) ==
LOC: ER 23:32
PROVIDERS: Emergency Provider Physician Assistant; PCP Family Medicine
DX: Z76.0 Encounter for issue of repeat prescription (principal)
CPT/HCPCS: 99283; 82728; 83540; 83550; 84146; 84443; 99282

== ENCOUNTER 2022-09-19 14:03 | Emergency (ER) | payer OTHER, SELFPAY ==
[2022-09-19 14:09] VITALS: BP 119/77; PULSE 104; RESP 14; TEMP 36.6; O2SAT 99
[2022-09-19 17:43] LABS: Anion Gap 4.8 mmol/L (3-11); BUN 10 mg/dL (7-18); CO2 32.2 mmol/L (21.0-32.0); CREATININE 1.2 mg/dL (0.70-1.30); Calcium 8.5 mg/dL (8.5-10.1); Chloride 101 mmol/L (98-107); Estimated GFR 84.48 (mL/min/1.73m2); Glucose 105 mg/dL (74-106); Potassium 3.9 mmol/L (3.5-5.1); Sodium 138 mmol/L (136-145)
--- NOTE | 2022-09-19 17:49 | ED.GENADUL_ITS ---
Discharge Plan Disposition Patient Disposition: Eloped Condition: Stable Discharge Details Clinical Impression: Anxiety Primary Care Provider: Brendon Vivar ED Provider: Anna Ocampo Home Meds and New Rx's Prescriptions: Continued acetaminophen 325 mg capsule 650 mg PO Q6H PRN fluoxetine 20 mg capsule 60 mg PO DAILY Qty: 270 3RF clonazepam 1 mg tablet 1 mg PO BID MDD 2mg PRN (Reason: severe anxiety episodes) Qty: 28 0RF Rx Instructions: Continue increased dose for acute anxiety episodes methadone 10 mg/5 mL solution 110 mg PO QAM calcium carbonate [Tums] 200 mg calcium (500 mg) tablet,chewable 1,000 mg PO BID Qty: 0 0RF Hold Instructions: Resume on 06/15/22. calcitriol 0.5 mcg capsule 0.5 mcg PO BID Qty: 360 3RF Hold Instructions: Resume on 06/15/22. gabapentin 800 mg tablet 300 mg PO DAILY ibuprofen 200 mg Tablet 600 mg PO PRN PRN magnesium gluconate 27 mg magnesium (500 mg) tablet 27 mg PO BID Qty: 30 0RF esomeprazole magnesium [Nexium] 20 mg capsule,delayed release(DR/EC) 20 mg PO DAILY Qty: 30 0RF sucralfate [Carafate] 1 gram tablet 1 gm PO QACHS Qty: 14 0RF Discharge Instructions Instructions: Anxiety (ED) Additional Instructions: Continue usual medications as directed. Your lab work shows no electrolyte abnormalities follow-up with your primary care as needed Referrals: Brendon Vivar DO [Primary Care Provider] - Discharge Data Discharge Date/Time-TO BE ENTERED AT DEPARTURE: 09/19/22 18:13 Medical Decision Making <Anna Ocampo NP - Last Filed: 09/20/22 17:39> Frequent utilizer of the emergency department who presents with symptoms of numbness and discomfort in his jaw and hands which he says is consistent with low calcium levels. He has had no other complaints or recent illness. Vitals unremarkable physical exam unremarkable we will check basic metabolic panel as he does have history of electrolyte imbalance. This has been reviewed and unremarkable he is safe for discharge to home can follow-up with his outpatient team. Medical Records Medical records reviewed: Yes I reviewed the patient's medical records. Lab Data Lab results reviewed: Yes I reviewed the patient's lab results. Lab results narrative: Lab Results 09/19/22 Range/Units 17:27 Sodium 138 (136-145) mmol/L Potassium 3.9 (3.5-5.1) mmol/L Chloride 101 (98-107) mmol/L Carbon Dioxide 32.2 H (21.0-32.0) mmol/L Anion Gap 4.8 (3-11) mmol/L BUN 10 (7-18) mg/dL Creatinine 1.2 (0.70-1.30) mg/dL Est GFR (CKD-EPI 2020) 84.48 (mL/min/1.73m2) Glucose 105 (74-106) mg/dL Calcium 8.5 (8.5-10.1) mg/dL <Breonna Bates DO - Last Filed: 09/20/22 22:50> Frequent utilizer of the emergency department who presents with symptoms of numbness and discomfort in his jaw and hands which he says is consistent with low calcium levels. He has had no other complaints or recent illness. Vitals unremarkable physical exam unremarkable we will check basic metabolic panel as he does have history of electrolyte imbalance. This has been reviewed and unremarkable he is safe for discharge to home can follow-up with his outpatient team. Dr. Bates Patient not seen or examined by me but I was available for consult if needed. HPI <Anna Ocampo NP - Last Filed: 09/20/22 17:39> General Mode of arrival: ambulatory . Date/Time Provider Initiated Documentation: 09/19/22 14:16 . Limitations to Documentation: no limitations . Information obtained by: patient . HPI Narrative: presents for c/o tingling in hands and jaw which he says is consistent with low calcium levels. no new c/o Related Data Home Medications Medication Instructions Recorded Confirmed methadone 10 mg/5 mL oral solution 110 mg PO QAM 11/16/21 09/20/22 acetaminophen 325 mg capsule 650 mg PO Q6H PRN 06/07/22 09/20/22 calcitriol 0.5 mcg capsule 0.5 mcg PO BID #360 caps 06/14/22 09/20/22 calcium carbonate 200 mg calcium 1,000 mg PO BID #0 tabs 06/14/22 09/20/22 (500 mg) chewable tablet (Tums) magnesium gluconate 27 mg 27 mg PO BID #30 tabs 07/17/22 09/20/22 magnesium (500 mg) tablet fluoxetine 20 mg capsule 60 mg PO DAILY #270 caps 07/18/22 09/20/22 esomeprazole magnesium 20 mg 20 mg PO DAILY #30 caps 09/05/22 09/20/22 capsule,delayed release (Nexium) sucralfate 1 gram tablet (Carafate) 1 gm PO QACHS #14 tabs 09/08/22 09/20/22 clonazepam 1 mg tablet 1 mg PO BID PRN severe anxiety 09/10/22 09/20/22 episodes #28 tabs gabapentin 800 mg tablet 300 mg PO DAILY 09/19/22 09/20/22 ibuprofen 200 mg tablet 600 mg PO PRN PRN 09/19/22 09/20/22 Previous Rx's Medication Instructions Recorded calcitriol 0.5 mcg capsule 0.5 mcg PO BID #360 caps 06/14/22 calcium carbonate 200 mg calcium 1,000 mg PO BID #0 tabs 06/14/22 (500 mg) chewable tablet (Tums) magnesium gluconate 27 mg 27 mg PO BID #30 tabs 07/17/22 magnesium (500 mg) tablet fluoxetine 20 mg capsule 60 mg PO DAILY #270 caps 07/18/22 esomeprazole magnesium 20 mg 20 mg PO DAILY #30 caps 09/05/22 capsule,delayed release (Nexium) sucralfate 1 gram tablet (Carafate) 1 gm PO QACHS #14 tabs 09/08/22 clonazepam 1 mg tablet 1 mg PO BID PRN severe anxiety 09/10/22 episodes #28 tabs Allergies Allergy/AdvReac Type Severity Reaction Status Date / Time codeine Allergy Intermediate Verified 09/20/22 08:05 amoxicillin AdvReac Intermediate Nausea Verified 09/20/22 08:05 General Stated Complaint: GenMedical ADRIANA: 3 Review of Systems <Anna Ocampo NP - Last Filed: 09/20/22 17:39> All systems reviewed & are unremarkable except as noted in HPI and below PFSH <Anna Ocampo NP - Last Filed: 09/20/22 17:39> All Active Problems (Updated 09/20/22 @ 08:21 by Crow Gama NP) Gynecomastia, male (Acute) b/l, per CT (Jul 2022).. Possible 2' Methadone, Clnzpm (?). Surg eval (+)/No further action. CKD (chronic kidney disease) stage 2, GFR 60-89 ml/min (Acute) GFR 64-65, with Hx FLORESITA and GFR < 45 Complex medical condition (Acute) Serious electrolyte imbalances, with gynecomastia, possible MEN Dx, CKD and anemia with baseline anxiety and Hx PTSD. History of electrolyte imbalance (Acute) Neck pain on left side (Acute) with shoulder, upper back pain.. torticollis, radiating into left hip/leg Constipation (Acute) Nausea (Acute) Acute epigastric pain (Acute) Gastroesophageal reflux disease (Chronic) Gastritis (Acute) Chest pain (Acute) Anxiety (Chronic) Hypomagnesemia (Acute) Hypocalcemia (Acute) Epigastric abdominal pain (Acute) Encounter for medication administration (Acute) History of anxiety (Acute) Pulmonary nodule 1 cm or greater in diameter (Acute) Therapeutic opioid induced constipation (Acute) Sphincter of Oddi dysfunction (Acute) Abnormal CT scan, kidney (Acute) Intrahepatic bile duct dilation (Acute) Common bile duct dilatation (Acute) Abdominal pain (Acute) Iatrogenic hypocalcemia (Acute) Multiple endocrine neoplasia type I (Chronic) Chronic constipation (Chronic) Primary hyperparathyroidism (Chronic) Depression (Chronic) Hypocalcemia (Chronic) Hypomagnesemia (Chronic) Depression (Chronic) Suicidal ideation (Acute) Elevated parathyroid hormone (Acute) Family history of coronary arteriosclerosis (Chronic) Father of [place] at 50, mother had [place] at 42 Severe anxiety with panic (Acute) Cellulitis (Acute) Medical History Anxiety Depression Family history of multiple endocrine neoplasia, type 1 Hyperlipidemia Hypocalcemia PTSD (post-traumatic stress disorder) Surgical History H/O parathyroidectomy Family History Mother Anxiety Asthma Depression Sister Anxiety Depression Father Cancer lung & stomach Depression Diabetes Hypertension MEN 1 (multiple endocrine neoplasia) Social History Smoking/Tobacco Use Status: Never Smoking risk assessment performed?: Yes Alcohol Intake: never 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 Adopted: No Caregiver/Support person: No Foster care: No Household members: none Housing: house Number of Children: 0 Communication Needs: None Education Level: high school Do you need help understanding health information?: Never 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 and animals: Yes (Ally) Pets and animals: dog(s) Sexually active: No Do you think of yourself as: straight/heterosexual Current gender identity: male What is your relationship status?: How often do you talk on the phone with friends or family?: twice per week How often do you get together with friends or relatives?: never Do you belong to any clubs or organized social groups?: no Panel score (0-1 are the most socially isolated patients): 0 What type of physical activity do you participate in: walking Duration: 15-30 minutes/day Frequency: 5-6 times per week Maryam/Jewish: Yarsanism Special maryam needs: No Seatbelt use: always Helmet use: Yes Helmet use: always Drive 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 driver salesman: No Do you feel safe at home: Yes Do you feel safe in your relationship?: Yes Exam <Anna Ocampo NP - Last Filed: 09/20/22 17:39> Narrative Exam Narrative: Obese white male in no acute distress skin [place] warm dry well-perfused vital signs are stable head is atraumatic oral mucosa moist respirations even and unlabored moves all extremities no edema skin with no rashes or lesions Course <Anna Ocampo NP - Last Filed: 09/20/22 17:39> Vital Signs Vital signs: Vital Signs Temperature 36.6 C 09/19/22 14:09 Pulse 104 H 09/19/22 14:09 Respiratory Rate 14 09/19/22 14:09 Blood Pressure 119/77 09/19/22 14:09 Pulse Oximetry 99 09/19/22 14:09 Temperature 36.6 C 09/19/22 14:09 Temperature Source Tympanic 09/19/22 14:09 Pulse 104 H 09/19/22 14:09 Respiratory Rate 14 09/19/22 14:09 Respiratory Effort Normal 09/19/22 14:21 Blood Pressure 119/77 09/19/22 14:09 Blood Pressure Position Sitting 09/19/22 14:09 Pulse Oximetry 99 09/19/22 14:09 Oxygen Delivery Method Room Air 09/19/22 14:09 Oxygen Flow Rate 0 09/19/22 14:09 Pain Level 2 09/19/22 14:09 Lab/Test Results Lab/Test Results: Laboratory Tests Range/Units 09/19/22 17:27 Sodium (136-145) mmol/L 138 Potassium (3.5-5.1) mmol/L 3.9 Chloride (98-107) mmol/L 101 Carbon Dioxide (21.0-32.0) mmol/L 32.2 H Anion Gap (3-11) mmol/L 4.8 BUN (7-18) mg/dL 10 Creatinine (0.70-1.30) mg/dL 1.2 Est GFR (CKD-EPI 2020) (mL/min/1.73m2) 84.48 Glucose (74-106) mg/dL 105 Calcium (8.5-10.1) mg/dL 8.5
--- NOTE | 2022-09-19 18:14 | NUR.NOTE ---
Nursing Note: Anna Ocampo NP went to waiting room to give patient his results, but he was not found to be there. Pt. fisher.
== END 2022-09-19 18:13 | disposition left against medical advice (07) ==
PROVIDERS: Emergency Provider Nurse Practitioner Acute Care; PCP Family Medicine
DX: F41.9 Anxiety disorder, unspecified (principal); E83.51 Hypocalcemia
CPT/HCPCS: 80048; 99283

== ENCOUNTER 2022-09-20 07:55 | Emergency (ER) | payer OTHER, SELFPAY ==
[2022-09-20 08:01] VITALS: BP 130/81; PULSE 88; RESP 18; TEMP 36.2; O2SAT 98
[2022-09-20 08:09] VITALS: RESP 18
--- NOTE | 2022-09-20 08:19 | ED.GENADUL_ITS ---
Discharge Plan Disposition Patient Disposition: Home Discharge Details Clinical Impression: History of electrolyte imbalance, Anxiety Primary Care Provider: Brendon Vivar ED Provider: Crow Gama Home Meds and New Rx's Prescriptions: Continued acetaminophen 325 mg capsule 650 mg PO Q6H PRN fluoxetine 20 mg capsule 60 mg PO DAILY Qty: 270 3RF clonazepam 1 mg tablet 1 mg PO BID MDD 2mg PRN (Reason: severe anxiety episodes) Qty: 28 0RF Rx Instructions: Continue increased dose for acute anxiety episodes methadone 10 mg/5 mL solution 110 mg PO QAM calcium carbonate [Tums] 200 mg calcium (500 mg) tablet,chewable 1,000 mg PO BID Qty: 0 0RF Hold Instructions: Resume on 06/15/22. calcitriol 0.5 mcg capsule 0.5 mcg PO BID Qty: 360 3RF Hold Instructions: Resume on 06/15/22. gabapentin 800 mg tablet 300 mg PO DAILY ibuprofen 200 mg Tablet 600 mg PO PRN PRN magnesium gluconate 27 mg magnesium (500 mg) tablet 27 mg PO BID Qty: 30 0RF esomeprazole magnesium [Nexium] 20 mg capsule,delayed release(DR/EC) 20 mg PO DAILY Qty: 30 0RF sucralfate [Carafate] 1 gram tablet 1 gm PO QACHS Qty: 14 0RF Discontinued cyclobenzaprine 10 mg tablet 10 mg PO BID Qty: 180 3RF Patient Comments: not taking Discharge Instructions Instructions: Electrolyte/Mineral Supplement (By mouth) Additional Instructions: Please continue to take your medications as prescribed and follow-up with your primary care provider for reassessment as directed. It was noted in your care plan prior to coming to the emergency department when your complaints are similar to ones in the past you are to call the home care manager at your primary care office to see if they are able to see you or if the emergency department is needed. Referrals: Brendon Vivar DO [Primary Care Provider] - Medical Decision Making Patient presenting to the emergency department for chief complaint of tingling around mouth and hands. He states anxiety concerning previous episodes of having low calcium. Patient did present to the emergency department yesterday and had labs drawn for the same reason but did not stay for results due to significant volume in the department at that time. Patient denies any change in symptoms since yesterday and denies all other complaints. Physical exam is unremarkable, negative Trousseau sign and chvostek sign. Labs were reviewed and calcium is within normal range, and magnesium was slightly low at 1.7. Other results were nonworrisome. Patient did state that he had been off of his magnesium for a couple days and had restarted it recently. At this time I do not feel that we need to repeat labs and feel there may be a significant component of anxiety which was discussed with patient. Patient was not to contact primary care provider for any further lab rechecks unless change in symptoms occurs which he stated he already had a primary care follow-up. After discussion of diagnosis and plan of care patient has no further needs, questions, or concerns and states clear understanding to return to the emergency department for any worsening symptoms. This documentation was generated using [employer] system, please disregard any oddities of phrase or misspellings. Medical Records Medical records reviewed: Yes I reviewed the patient's medical records. Medical records narrative: Reviewed labs from yesterday Lab Data Lab results reviewed: Yes I reviewed the patient's lab results. HPI General Mode of arrival: ambulatory . Date/Time Provider Initiated Documentation: 09/20/22 08:00 . Limitations to Documentation: no limitations . Information obtained by: patient and RN notes reviewed . History of Present Illness 26 year old M presents to the emergency department with the chief complaint of Tingling around mouth and hands, described as mild and similar to prior episodes, Patient started experiencing this day(s) (2) No relieving factors improve symptom(s), No exacerbating factors reported . Patient notes no other symptoms.. Related Data Home Medications Medication Instructions Recorded Confirmed methadone 10 mg/5 mL oral solution 110 mg PO QAM 11/16/21 09/20/22 acetaminophen 325 mg capsule 650 mg PO Q6H PRN 06/07/22 09/20/22 calcitriol 0.5 mcg capsule 0.5 mcg PO BID #360 caps 06/14/22 09/20/22 calcium carbonate 200 mg calcium 1,000 mg PO BID #0 tabs 06/14/22 09/20/22 (500 mg) chewable tablet (Tums) magnesium gluconate 27 mg 27 mg PO BID #30 tabs 07/17/22 09/20/22 magnesium (500 mg) tablet fluoxetine 20 mg capsule 60 mg PO DAILY #270 caps 07/18/22 09/20/22 esomeprazole magnesium 20 mg 20 mg PO DAILY #30 caps 09/05/22 09/20/22 capsule,delayed release (Nexium) sucralfate 1 gram tablet (Carafate) 1 gm PO QACHS #14 tabs 09/08/22 09/20/22 clonazepam 1 mg tablet 1 mg PO BID PRN severe anxiety 09/10/22 09/20/22 episodes #28 tabs gabapentin 800 mg tablet 300 mg PO DAILY 09/19/22 09/20/22 ibuprofen 200 mg tablet 600 mg PO PRN PRN 09/19/22 09/20/22 Previous Rx's Medication Instructions Recorded calcitriol 0.5 mcg capsule 0.5 mcg PO BID #360 caps 06/14/22 calcium carbonate 200 mg calcium 1,000 mg PO BID #0 tabs 06/14/22 (500 mg) chewable tablet (Tums) magnesium gluconate 27 mg 27 mg PO BID #30 tabs 07/17/22 magnesium (500 mg) tablet fluoxetine 20 mg capsule 60 mg PO DAILY #270 caps 07/18/22 esomeprazole magnesium 20 mg 20 mg PO DAILY #30 caps 09/05/22 capsule,delayed release (Nexium) sucralfate 1 gram tablet (Carafate) 1 gm PO QACHS #14 tabs 09/08/22 clonazepam 1 mg tablet 1 mg PO BID PRN severe anxiety 09/10/22 episodes #28 tabs Allergies Allergy/AdvReac Type Severity Reaction Status Date / Time codeine Allergy Intermediate Verified 09/20/22 08:05 amoxicillin AdvReac Intermediate Nausea Verified 09/20/22 08:05 General Stated Complaint: GenMedical ADRIANA: 3 Review of Systems Narrative: 6 systems reviewed and unremarkable except what is marked below. Musculoskeletal Musculoskeletal: Reports tingling Neurologic Neurologic: Reports system reviewed and no additional complaints, except as documented, Reports as per HPI and Reports tingling PFSH All Active Problems (Updated 09/20/22 @ 08:21 by Crow Gama NP) Gynecomastia, male (Acute) b/l, per CT (Jul 2022).. Possible 2' Methadone, Clnzpm (?). Surg eval (+)/No further action. CKD (chronic kidney disease) stage 2, GFR 60-89 ml/min (Acute) GFR 64-65, with Hx FLORESITA and GFR < 45 Complex medical condition (Acute) Serious electrolyte imbalances, with gynecomastia, possible MEN Dx, CKD and anemia with baseline anxiety and Hx PTSD. History of electrolyte imbalance (Acute) Neck pain on left side (Acute) with shoulder, upper back pain.. torticollis, radiating into left hip/leg Constipation (Acute) Nausea (Acute) Acute epigastric pain (Acute) Gastroesophageal reflux disease (Chronic) Gastritis (Acute) Chest pain (Acute) Anxiety (Chronic) Hypomagnesemia (Acute) Hypocalcemia (Acute) Epigastric abdominal pain (Acute) Encounter for medication administration (Acute) History of anxiety (Acute) Pulmonary nodule 1 cm or greater in diameter (Acute) Therapeutic opioid induced constipation (Acute) Sphincter of Oddi dysfunction (Acute) Abnormal CT scan, kidney (Acute) Intrahepatic bile duct dilation (Acute) Common bile duct dilatation (Acute) Abdominal pain (Acute) Iatrogenic hypocalcemia (Acute) Multiple endocrine neoplasia type I (Chronic) Chronic constipation (Chronic) Primary hyperparathyroidism (Chronic) Depression (Chronic) Hypocalcemia (Chronic) Hypomagnesemia (Chronic) Depression (Chronic) Suicidal ideation (Acute) Elevated parathyroid hormone (Acute) Family history of coronary arteriosclerosis (Chronic) Father of [place] at 50, mother had [place] at 42 Severe anxiety with panic (Acute) Cellulitis (Acute) Medical History Anxiety Depression Family history of multiple endocrine neoplasia, type 1 Hyperlipidemia Hypocalcemia PTSD (post-traumatic stress disorder) Surgical History H/O parathyroidectomy Family History Mother Anxiety Asthma Depression Sister Anxiety Depression Father Cancer lung & stomach Depression Diabetes Hypertension MEN 1 (multiple endocrine neoplasia) Social History Smoking/Tobacco Use Status: Never Smoking risk assessment performed?: Yes Alcohol Intake: never 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 Adopted: No Caregiver/Support person: No Foster care: No Household members: none Housing: house Number of Children: 0 Communication Needs: None Education Level: high school Do you need help understanding health information?: Never 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 and animals: Yes (Ally) Pets and animals: dog(s) Sexually active: No Do you think of yourself as: straight/heterosexual Current gender identity: male What is your relationship status?: How often do you talk on the phone with friends or family?: twice per week How often do you get together with friends or relatives?: never Do you belong to any clubs or organized social groups?: no Panel score (0-1 are the most socially isolated patients): 0 What type of physical activity do you participate in: walking Duration: 15-30 minutes/day Frequency: 5-6 times per week Maryam/Oriental Orthodox: Worship Special maryam needs: No Seatbelt use: always Helmet use: Yes Helmet use: always Drive 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 swing 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 Exam Const General: cooperative, no acute distress and not ill appearing Orientation: alert, awake and oriented x3 HENMT Mouth: moist mucous membranes Resp Effort & Inspection: normal respiratory effort, able to speak in complete sentences and no respiratory distress Cardio Rate: regular rate Rhythm: regular rhythm Pulses: normal peripheral pulses Skin General skin exam: no rashes or lesions noted Neuro General: patient alert, patient awake, patient oriented x3, moves all extremities and no focal motor deficits Motor: muscle tone normal throughout, no fasciculations and other (Negative Trousseau sign and chvostek sign) Sensory Exam: no sensory deficits noted Course Vital Signs Vital signs: Vital Signs Temperature 36.2 C L 09/20/22 08:01 Pulse 88 09/20/22 08:01 Respiratory Rate 18 09/20/22 08:01 Blood Pressure 130/81 09/20/22 08:01 Pulse Oximetry 98 09/20/22 08:01 Temperature 36.2 C L 09/20/22 08:01 Temperature Source Temporal Artery Scan 09/20/22 08:01 Pulse 88 09/20/22 08:01 Respiratory Rate 18 09/20/22 08:09 Respiratory Effort Normal, Non-Labored 09/20/22 08:09 Respiratory Depth Normal 09/20/22 08:09 Respiratory Pattern Normal 09/20/22 08:09 Blood Pressure 130/81 09/20/22 08:01 Blood Pressure Position Sitting 09/20/22 08:01 Pulse Oximetry 98 09/20/22 08:01 Oxygen Delivery Method Room Air 09/20/22 08:01 Oxygen Flow Rate 0 09/20/22 08:01
== END 2022-09-20 08:29 | disposition home or self-care (01) ==
PROVIDERS: Emergency Provider Nurse Practitioner Family; PCP Family Medicine
DX: F41.9 Anxiety disorder, unspecified (principal); E87.8 Other disorders of electrolyte and fluid balance, not elsewhere classified
CPT/HCPCS: 99283; 99282

== ENCOUNTER 2022-09-23 14:08 | Emergency (ER) | payer OTHER, SELFPAY ==
[2022-09-23 14:10] VITALS: BP 121/77; PULSE 87; RESP 16; TEMP 37.1; O2SAT 97
--- NOTE | 2022-09-23 14:23 | ED.GENADUL_ITS ---
Discharge Plan Disposition Patient Disposition: Home Condition: Good Discharge Details Clinical Impression: Contusion of left leg Primary Care Provider: Brendon Vivar ED Provider: Steph Jones Home Meds and New Rx's Prescriptions: Continued acetaminophen 325 mg capsule 650 mg PO Q6H PRN fluoxetine 20 mg capsule 60 mg PO DAILY Qty: 270 3RF methadone 10 mg/5 mL solution 110 mg PO QAM calcium carbonate [Tums] 200 mg calcium (500 mg) tablet,chewable 1,000 mg PO BID Qty: 0 0RF Hold Instructions: Resume on 06/15/22. calcitriol 0.5 mcg capsule 0.5 mcg PO BID Qty: 360 3RF Hold Instructions: Resume on 06/15/22. gabapentin 800 mg tablet 300 mg PO DAILY ibuprofen 200 mg Tablet 600 mg PO PRN PRN magnesium gluconate 27 mg magnesium (500 mg) tablet 27 mg PO BID Qty: 30 0RF sucralfate [Carafate] 1 gram tablet 1 gm PO QACHS Qty: 14 0RF No Action prednisone 50 mg tablet 50 mg PO DAILY 7 Days Qty: 7 0RF clonazepam 1 mg tablet 1 mg PO BID MDD 2mg PRN (Reason: severe anxiety episodes) Qty: 28 0RF Rx Instructions: Continue increased dose for acute anxiety episodes esomeprazole magnesium [Nexium] 20 mg capsule,delayed release(DR/EC) 20 mg PO DAILY Qty: 30 0RF Discharge Instructions Instructions: Contusion in Adults (ED) Additional Instructions: Your ultrasound is reassuring here today. This is likely contusion. Please encourage rest, ice, elevation. Tylenol and ibuprofen as needed for discomfort. I am concerned that giving you crutches may increase your risk of falling and being more sedentary may increase your risk of blood clot in your lung. While heavy lifting or strenuous exercise it may be too uncomfortable for you to perform at this time, I do encourage gentle frequent activity as well as more engagement in your community at this will help with your physical and mental health. Please follow-up with primary care in the next 1 to 2 weeks for reevaluation. If you develop any new or worsening symptoms may seek care urgently once again. Referrals: Brendon Vivar DO [Primary Care Provider] - Discharge Data Discharge Date/Time-TO BE ENTERED AT DEPARTURE: 09/23/22 14:42 Medical Decision Making Patient is a 26-year-old male, well-known to myself in the department, presenting today with chief complaint of left lower extremity pain. He reports that yesterday he tripped on his stairs and fell forward striking the anterior aspect of his lower extremity. Since then has been having some pain in the calf. He was seen urgent care today who ordered outpatient ultrasound. All patient ultrasound is negative without evidence of DVT. Patient came to the ER after being seen in urgent care and diagnostic imaging because he would like crutches. Patient does live on the third floor of his building. On exam, patient appears nontoxic. He appears anxious as per his typical. Exam of the left lower extremity is nondiagnostic with no evidence of trauma. He has no discoloration, deformity. He is ligamentously intact with varus and valgus stress testing as well as Levon exam. He does have fairly diffuse discomfort but again nothing focal or suggestive of severe trauma. His calf is soft with no palpable cord or firmness in a of the compartments. He has intact mobility of the knee and ankle. Patient I discussed that his mechanism of injury as well as his inconsistent presentation with the pain being somewhat migratory and not consistent with the area or mechanism in which he injured himself, has been concerned for this being primarily anxiety driven. I did encourage him to begin looking for a hobby becoming more involved in his community. He advised that he cannot work because he is disabled. However, I did encourage more social interaction. I also advised that being sedentary you are on crutches for increased length of time may increase his risk for something like a DVT, increased risk of fall particularly given the number of stairs he has to go up. Rather, I feel it would be safer and more beneficial for the patient to keep him ambulatory and put an Eleno wrap around the area of discomfort. I did encourage rest, ice, elevation. Tylenol and ibuprofen as needed for discomfort. Follow-up with primary care in 1 week for reevaluation. All of his questions and concerns were addressed and he is agreement this plan. Of note, prior to patient getting discharge instruction, he eloped from the department. He was able to ambulate, unassisted. He and I had discussed the US as well as plan already. HPI General Date/Time Provider Initiated Documentation: 09/23/22 14:13 . Limitations to Documentation: no limitations . Information obtained by: patient, RN notes reviewed and old records reviewed . History of Present Illness 26 year old M presents to the emergency department with the chief complaint of left knee injury, results from DVT US, would like crutches, described as moderate (was seen at urgent care), and is localized to the left and lower extremity. Patient started experiencing this day(s) (1) Immobilization improves symptom(s), Movement worsens symptoms . Patient notes no other symptoms.. Patient did receive the following treatments prior to arrival, none Related Data Home Medications Medication Instructions Recorded Confirmed methadone 10 mg/5 mL oral solution 110 mg PO QAM 11/16/21 09/26/22 acetaminophen 325 mg capsule 650 mg PO Q6H PRN 06/07/22 09/26/22 calcitriol 0.5 mcg capsule 0.5 mcg PO BID #360 caps 06/14/22 09/26/22 calcium carbonate 200 mg calcium 1,000 mg PO BID #0 tabs 06/14/22 09/26/22 (500 mg) chewable tablet (Tums) magnesium gluconate 27 mg 27 mg PO BID #30 tabs 07/17/22 09/26/22 magnesium (500 mg) tablet fluoxetine 20 mg capsule 60 mg PO DAILY #270 caps 07/18/22 09/26/22 sucralfate 1 gram tablet (Carafate) 1 gm PO QACHS #14 tabs 09/08/22 09/26/22 gabapentin 800 mg tablet 300 mg PO DAILY 09/19/22 09/26/22 ibuprofen 200 mg tablet 600 mg PO PRN PRN 09/19/22 09/26/22 clonazepam 1 mg tablet 1 mg PO BID PRN severe anxiety 09/24/22 09/26/22 episodes #28 tabs esomeprazole magnesium 20 mg 20 mg PO DAILY #30 caps 09/24/22 09/26/22 capsule,delayed release (Nexium) prednisone 50 mg tablet 50 mg PO DAILY 7 days #7 tabs 09/24/22 09/26/22 Previous Rx's Medication Instructions Recorded calcitriol 0.5 mcg capsule 0.5 mcg PO BID #360 caps 06/14/22 calcium carbonate 200 mg calcium 1,000 mg PO BID #0 tabs 06/14/22 (500 mg) chewable tablet (Tums) magnesium gluconate 27 mg 27 mg PO BID #30 tabs 07/17/22 magnesium (500 mg) tablet fluoxetine 20 mg capsule 60 mg PO DAILY #270 caps 07/18/22 sucralfate 1 gram tablet (Carafate) 1 gm PO QACHS #14 tabs 09/08/22 clonazepam 1 mg tablet 1 mg PO BID PRN severe anxiety 09/24/22 episodes #28 tabs esomeprazole magnesium 20 mg 20 mg PO DAILY #30 caps 09/24/22 capsule,delayed release (Nexium) prednisone 50 mg tablet 50 mg PO DAILY 7 days #7 tabs 09/24/22 Allergies Allergy/AdvReac Type Severity Reaction Status Date / Time codeine Allergy Intermediate Verified 09/26/22 17:37 amoxicillin AdvReac Intermediate Nausea Verified 09/26/22 17:37 General Stated Complaint: Orthopedic ADRIANA: 4 Review of Systems Constitutional Constitutional: Reports as per HPI, Denies chills, Denies fever(s) and Denies weakness Cardiovascular Cardiovascular: Reports as per HPI Musculoskeletal Musculoskeletal: Reports as per HPI and Denies tingling Integumentary/Breasts Skin/Breast: Reports as per HPI, Denies rash and Denies wounds Neurologic Neurologic: Reports as per HPI, Denies tingling, Denies paresthesias and Denies weakness PFSH All Active Problems (Updated 09/26/22 @ 20:56 by Ajay Kennedy MD) Shortness of breath (Acute) Cervical radiculopathy (Acute) Contusion of left leg (Acute) Gynecomastia, male (Acute) b/l, per CT (Jul 2022).. Possible 2' Methadone, Clnzpm (?). Surg eval (+)/No further action. CKD (chronic kidney disease) stage 2, GFR 60-89 ml/min (Acute) GFR 64-65, with Hx FLORESITA and GFR < 45 Complex medical condition (Acute) Serious electrolyte imbalances, with gynecomastia, possible MEN Dx, CKD and anemia with baseline anxiety and Hx PTSD. History of electrolyte imbalance (Acute) Neck pain on left side (Acute) with shoulder, upper back pain.. torticollis, radiating into left hip/leg Acute epigastric pain (Acute) Gastroesophageal reflux disease (Chronic) Gastritis (Acute) Chest pain (Acute) Anxiety (Chronic) Hypomagnesemia (Acute) Hypocalcemia (Acute) Epigastric abdominal pain (Acute) Encounter for medication administration (Acute) History of anxiety (Acute) Pulmonary nodule 1 cm or greater in diameter (Acute) Therapeutic opioid induced constipation (Acute) Sphincter of Oddi dysfunction (Acute) Abnormal CT scan, kidney (Acute) Intrahepatic bile duct dilation (Acute) Common bile duct dilatation (Acute) Abdominal pain (Acute) Iatrogenic hypocalcemia (Acute) Multiple endocrine neoplasia type I (Chronic) Chronic constipation (Chronic) Primary hyperparathyroidism (Chronic) Depression (Chronic) Hypocalcemia (Chronic) Hypomagnesemia (Chronic) Depression (Chronic) Suicidal ideation (Acute) Elevated parathyroid hormone (Acute) Family history of coronary arteriosclerosis (Chronic) Father of OR at 50, mother had OR at 42 Severe anxiety with panic (Acute) Cellulitis (Acute) Medical History Anxiety Depression Family history of multiple endocrine neoplasia, type 1 Hyperlipidemia Hypocalcemia PTSD (post-traumatic stress disorder) Surgical History H/O parathyroidectomy Family History Mother Anxiety Asthma Depression Sister Anxiety Depression Father Cancer lung & stomach Depression Diabetes Hypertension MEN 1 (multiple endocrine neoplasia) Social History Smoking/Tobacco Use Status: Never Smoking risk assessment performed?: Yes Alcohol Intake: never 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 Adopted: No Caregiver/Support person: No Foster care: No Household members: none Housing: house Number of Children: 0 Communication Needs: None Education Level: high school Do you need help understanding health information?: Never 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 and animals: Yes (Ally) Pets and animals: dog(s) Sexually active: No Do you think of yourself as: straight/heterosexual Current gender identity: male What is your relationship status?: How often do you talk on the phone with friends or family?: twice per week How often do you get together with friends or relatives?: never Do you belong to any clubs or organized social groups?: no Panel score (0-1 are the most socially isolated patients): 0 What type of physical activity do you participate in: walking Duration: 15-30 minutes/day Frequency: 5-6 times per week Maryam/Sabianist: Jew Special maryam needs: No Seatbelt use: always Helmet use: Yes Helmet use: always Drive 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 driver license technician: No Do you feel safe at home: Yes Do you feel safe in your relationship?: Yes Exam Const General: cooperative, healthy appearing, comfortable, no acute distress, well developed and well groomed Nutritional Appearance: average body habitus and well nourished Orientation: alert and awake Resp Effort & Inspection: normal respiratory effort, able to speak in complete sentences and no respiratory distress Cardio Rate: regular rate Rhythm: regular rhythm Skin General skin exam: no rashes or lesions noted Lesions: no lesions Rashes: no rashes Trauma: no lacerations or abrasions Neuro General: patient alert and patient awake Cognition: normal cognition Speech: speech normal Gait: other (came in in wheelchair) Motor: muscle tone normal throughout Sensory Exam: no sensory deficits noted Extrem Left lower extremity: normal to inspection, full ROM, normal capillary refill, knee Details: normal to inspection, tenderness (diffuse discomfort), normal ROM, knee ligament exam normal Details: anterior drawer test normal, posterior drawer test normal, valgus stress test normal and varus stress test normal and Sin's Test Details: negative medially and laterally; no swelling, no ecchymosis, no crepitus, no deformity and no unusual warmth, lower leg Details: normal to inspection and no edema; no erythema, no tenderness, no localized swelling, no palpable cords, no ecchymosis, no deformity and no unusual warmth, ankle Details: normal to inspection and foot Details: normal capillary refill; no cyanosis and no edema Psych Appearance: grossly normal and well kempt Mental Status: mental status grossly normal Speech and Movement: speech and movement normal Course Vital Signs Vital signs: Vital Signs Temperature 37.1 C 09/23/22 14:10 Pulse 87 09/23/22 14:10 Respiratory Rate 16 09/23/22 14:10 Blood Pressure 121/77 09/23/22 14:10 Pulse Oximetry 97 09/23/22 14:10 Temperature 37.1 C 09/23/22 14:10 Temperature Source Oral 09/23/22 14:10 Pulse 87 09/23/22 14:10 Respiratory Rate 16 09/23/22 14:10 Respiratory Effort Normal 04/10/23 14:14 Blood Pressure 121/77 09/23/22 14:10 Blood Pressure Position Sitting 09/23/22 14:10 Pulse Oximetry 97 09/23/22 14:10 Oxygen Delivery Method Room Air 09/23/22 14:10 Oxygen Flow Rate 0 09/23/22 14:10
--- NOTE | 2022-09-23 14:52 | NUR.NOTE ---
Nursing Note: Provider spoke to patient about treatment. Patient left shortly after without lindsey wrap
== END 2022-09-23 14:42 | disposition home or self-care (01) ==
PROVIDERS: Emergency Provider Physician Assistant; PCP Family Medicine
DX: S80.12XA Contusion of left lower leg, initial encounter (principal); W19.XXXA Unspecified fall, initial encounter
CPT/HCPCS: 99281; 99282

== ENCOUNTER 2022-09-26 13:16 | Emergency (ER) | payer OTHER, SELFPAY ==
[2022-09-26 13:20] VITALS: BP 123/67; PULSE 86; RESP 16; TEMP 37.2; O2SAT 100
--- NOTE | 2022-09-26 14:36 | NUR.NOTE ---
Nursing Note: [facility]hat Nielson called stated that pt told them he did not want to wait and that he was leving. [id number]
== END 2022-09-26 14:36 | disposition left against medical advice (07) ==
PROVIDERS: PCP Family Medicine
DX: Z53.21 Procedure and treatment not carried out due to patient leaving prior to being seen by health care provider (principal)
CPT/HCPCS: 80053; 83735; 85025

== ENCOUNTER 2022-09-26 17:27 | Emergency (ER) | payer OTHER, SELFPAY ==
[2022-09-26 17:33] VITALS: BP 133/82; PULSE 104; RESP 18; TEMP 37.2; O2SAT 99
--- NOTE | 2022-09-26 19:47 | W.ED.GENAD ---
Discharge Plan Disposition Patient Disposition: Home Condition: Improving Discharge Details Chief Complaint: SOB Clinical Impression: Shortness of breath Primary Care Provider: Brendon Vivar ED Provider: Ajay Kennedy Home Meds and New Rx's Prescriptions: No Action acetaminophen 325 mg capsule 650 mg PO Q6H PRN fluoxetine 20 mg capsule 60 mg PO DAILY Qty: 270 3RF methadone 10 mg/5 mL solution 110 mg PO QAM prednisone 50 mg tablet 50 mg PO DAILY 7 Days Qty: 7 0RF clonazepam 1 mg tablet 1 mg PO BID MDD 2mg PRN (Reason: severe anxiety episodes) Qty: 28 0RF Rx Instructions: Continue increased dose for acute anxiety episodes esomeprazole magnesium [Nexium] 20 mg capsule,delayed release(DR/EC) 20 mg PO DAILY Qty: 30 0RF calcium carbonate [Tums] 200 mg calcium (500 mg) tablet,chewable 1,000 mg PO BID Qty: 0 0RF Hold Instructions: Resume on 06/15/22. calcitriol 0.5 mcg capsule 0.5 mcg PO BID Qty: 360 3RF Hold Instructions: Resume on 06/15/22. gabapentin 800 mg tablet 300 mg PO DAILY ibuprofen 200 mg Tablet 600 mg PO PRN PRN magnesium gluconate 27 mg magnesium (500 mg) tablet 27 mg PO BID Qty: 30 0RF sucralfate [Carafate] 1 gram tablet 1 gm PO QACHS Qty: 14 0RF Discharge Instructions Instructions: Dyspnea (ED) Additional Instructions: Please follow-up with your primary care physician and your record retrieval specialist Medical Decision Making <Breonna Bates DO - Last Filed: 09/26/22 20:08> 26-year-old male well-known to the emergency department with multiple frequent visits with a family history of multiple endocrine neoplasia and personal history of parathyroidectomy who is followed by [facility] endocrinology for management of recurrent hypocalcemia and hypomagnesemia presents for tingling in his head, bilateral hands and feet since yesterday. Patient states his record retrieval specialist decreased his Tums dose from 1000 mg twice daily to 750 mg twice daily and his calcitriol from 0.5 mg twice daily to 0.25 mg twice daily 2 days ago. He also complains of dizziness and fatigue. Patient appears comfortable and nontoxic. He has no focal deficits on exam. Will obtain screening labs including calcium and magnesium. Case endorsed to Dr. Kennedy to follow up on labs and final disposition. Medical Records Medical records reviewed: Yes I reviewed the patient's medical records. <Ajay Kennedy MD - Last Filed: 09/26/22 20:56> 26-year-old male well-known to the emergency department with multiple frequent visits with a family history of multiple endocrine neoplasia and personal history of parathyroidectomy who is followed by [facility] endocrinology for management of recurrent hypocalcemia and hypomagnesemia presents for tingling in his head, bilateral hands and feet since yesterday. Patient states his record retrieval specialist decreased his Tums dose from 1000 mg twice daily to 750 mg twice daily and his calcitriol from 0.5 mg twice daily to 0.25 mg twice daily 2 days ago. He also complains of dizziness and fatigue. Patient appears comfortable and nontoxic. He has no focal deficits on exam. Will obtain screening labs including calcium and magnesium. Case endorsed to Dr. Kennedy to follow up on labs and final disposition. 20: 55 patient resting comfortably no acute distress. Slightly low calcium. Counseled patient to go back to his normal dose of Tums and discuss his symptomatology with his record retrieval specialist. Patient comfortable with plan given home care instructions and return precautions HPI <Breonna Bates DO - Last Filed: 09/26/22 20:08> General Mode of arrival: ambulatory. Date/Time Provider Initiated Documentation: 09/26/22 17:47. Limitations to Documentation: no limitations. Information obtained by: patient. HPI Narrative: Patient is a 26-year-old male well-known to the emergency department with multiple frequent visits including one earlier today in which she left without being seen presents for tingling in his head, both hands and both feet since yesterday. Patient states he is concerned that his calcium or magnesium may be low. Patient states he is followed by [facility] endocrinology for his history of multiple endocrine neoplasia and is treated with Tums, calcitriol and magnesium. Patient states his record retrieval specialist lowered his Tums from 1000 mg twice daily to 750 mg twice daily and his calcitriol from 0.5 mcg to 0.25 mcg 2 days ago. Patient states the tingling in his head, hands and feet started yesterday. Patient also admits to feeling fatigued, dizzy and confused. Patient denies any fever, headache, blurry vision, nausea, vomiting, diarrhea or abdominal pain. He does admit to chronic chest pain and shortness of breath and states this is no worse than usual. Patient states he has been eating normally. Related Data Home Medications Medication Instructions Recorded Confirmed methadone 10 mg/5 mL oral solution 110 mg PO QAM 11/16/21 09/26/22 acetaminophen 325 mg capsule 650 mg PO Q6H PRN 06/07/22 09/26/22 calcitriol 0.5 mcg capsule 0.5 mcg PO BID #360 caps 06/14/22 09/26/22 calcium carbonate 200 mg calcium 1,000 mg PO BID #0 tabs 06/14/22 09/26/22 (500 mg) chewable tablet (Tums) magnesium gluconate 27 mg 27 mg PO BID #30 tabs 07/17/22 09/26/22 magnesium (500 mg) tablet fluoxetine 20 mg capsule 60 mg PO DAILY #270 caps 07/18/22 09/26/22 sucralfate 1 gram tablet (Carafate) 1 gm PO QACHS #14 tabs 09/08/22 09/26/22 gabapentin 800 mg tablet 300 mg PO DAILY 09/19/22 09/26/22 ibuprofen 200 mg tablet 600 mg PO PRN PRN 09/19/22 09/26/22 clonazepam 1 mg tablet 1 mg PO BID PRN severe anxiety 09/24/22 09/26/22 episodes #28 tabs esomeprazole magnesium 20 mg 20 mg PO DAILY #30 caps 09/24/22 09/26/22 capsule,delayed release (Nexium) prednisone 50 mg tablet 50 mg PO DAILY 7 days #7 tabs 09/24/22 09/26/22 Previous Rx's Medication Instructions Recorded calcitriol 0.5 mcg capsule 0.5 mcg PO BID #360 caps 06/14/22 calcium carbonate 200 mg calcium 1,000 mg PO BID #0 tabs 06/14/22 (500 mg) chewable tablet (Tums) magnesium gluconate 27 mg 27 mg PO BID #30 tabs 07/17/22 magnesium (500 mg) tablet fluoxetine 20 mg capsule 60 mg PO DAILY #270 caps 07/18/22 sucralfate 1 gram tablet (Carafate) 1 gm PO QACHS #14 tabs 09/08/22 clonazepam 1 mg tablet 1 mg PO BID PRN severe anxiety 09/24/22 episodes #28 tabs esomeprazole magnesium 20 mg 20 mg PO DAILY #30 caps 09/24/22 capsule,delayed release (Nexium) prednisone 50 mg tablet 50 mg PO DAILY 7 days #7 tabs 09/24/22 Allergies Allergy/AdvReac Type Severity Reaction Status Date / Time codeine Allergy Intermediate Verified 09/26/22 17:37 amoxicillin AdvReac Intermediate Nausea Verified 09/26/22 17:37 General Stated Complaint: SOB ADRIANA: 3 Review of Systems <Breonna Bates DO - Last Filed: 09/26/22 20:08> All systems reviewed & are unremarkable except as noted in HPI and below Constitutional Constitutional: Reports as per HPI, Denies chills and Denies fever(s) Eyes Eyes: Denies blurry vision ENT Ears, Nose, Mouth, and Throat: Denies dizziness, Denies sore throat and Denies throat swelling Cardiovascular Cardiovascular: Denies chest pain and Denies dyspnea Respiratory Respiratory: Denies cough and Denies dyspnea Gastrointestinal Gastrointestinal: Denies abdominal pain, Denies diarrhea and Denies vomiting Genitourinary Genitourinary: Denies hematuria and Denies dysuria Musculoskeletal Musculoskeletal: Denies back pain, Denies numbness and Reports tingling (in head, hands and feet) Integumentary/Breasts Skin/Breast: Denies lesions and Denies rash Neurologic Neurologic: Denies dizziness, Denies localized weakness, Denies numbness and Reports tingling (in head, hands and feet) Allergic/Immunologic Allergic/Immunologic: Denies throat swelling PFSH <DO Dasha Hernandez Last Filed: 09/26/22 20:08> All Active Problems (Updated 09/26/22 @ 20:56 by Ajay Kennedy MD) Shortness of breath (Acute) Cervical radiculopathy (Acute) Contusion of left leg (Acute) Gynecomastia, male (Acute) b/l, per CT (Jul 2022).. Possible 2' Methadone, Clnzpm (?). Surg eval (+)/No further action. CKD (chronic kidney disease) stage 2, GFR 60-89 ml/min (Acute) GFR 64-65, with Hx FLORESITA and GFR < 45 Complex medical condition (Acute) Serious electrolyte imbalances, with gynecomastia, possible MEN Dx, CKD and anemia with baseline anxiety and Hx PTSD. History of electrolyte imbalance (Acute) Neck pain on left side (Acute) with shoulder, upper back pain.. torticollis, radiating into left hip/leg Acute epigastric pain (Acute) Gastroesophageal reflux disease (Chronic) Gastritis (Acute) Chest pain (Acute) Anxiety (Chronic) Hypomagnesemia (Acute) Hypocalcemia (Acute) Epigastric abdominal pain (Acute) Encounter for medication administration (Acute) History of anxiety (Acute) Pulmonary nodule 1 cm or greater in diameter (Acute) Therapeutic opioid induced constipation (Acute) Sphincter of Oddi dysfunction (Acute) Abnormal CT scan, kidney (Acute) Intrahepatic bile duct dilation (Acute) Common bile duct dilatation (Acute) Abdominal pain (Acute) Iatrogenic hypocalcemia (Acute) Multiple endocrine neoplasia type I (Chronic) Chronic constipation (Chronic) Primary hyperparathyroidism (Chronic) Depression (Chronic) Hypocalcemia (Chronic) Hypomagnesemia (Chronic) Depression (Chronic) Suicidal ideation (Acute) Elevated parathyroid hormone (Acute) Family history of coronary arteriosclerosis (Chronic) Father of [place] at 50, mother had [place] at 42 Severe anxiety with panic (Acute) Cellulitis (Acute) Medical History Anxiety Depression Family history of multiple endocrine neoplasia, type 1 Hyperlipidemia Hypocalcemia PTSD (post-traumatic stress disorder) Surgical History H/O parathyroidectomy Family History Mother Anxiety Asthma Depression Sister Anxiety Depression Father Cancer lung & stomach Depression Diabetes Hypertension MEN 1 (multiple endocrine neoplasia) Social History Smoking/Tobacco Use Status: Never Smoking risk assessment performed?: Yes Alcohol Intake: never 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 Adopted: No Caregiver/Support person: No Foster care: No Household members: none Housing: house Number of Children: 0 Communication Needs: None Education Level: high school Do you need help understanding health information?: Never 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 and animals: Yes (Ally) Pets and animals: dog(s) Sexually active: No Do you think of yourself as: straight/heterosexual Current gender identity: male What is your relationship status?: How often do you talk on the phone with friends or family?: twice per week How often do you get together with friends or relatives?: never Do you belong to any clubs or organized social groups?: no Panel score (0-1 are the most socially isolated patients): 0 What type of physical activity do you participate in: walking Duration: 15-30 minutes/day Frequency: 5-6 times per week Maryam/Mandaeism: Mandaeism Special maryam needs: No Seatbelt use: always Helmet use: Yes Helmet use: always Drive 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 p d 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 Exam <Breonna Bates DO - Last Filed: 09/26/22 20:08> Const General: cooperative, healthy appearing and no acute distress Orientation: alert, awake and oriented x3 HENMT Head: normal to inspection Face and sinus: normal facial exam Eyes General: appearance normal, both eyes and all related structures Pupils: PERRL EOM: EOM intact bilaterally Neck Neck: normal visual inspection and No submandibular swelling Lymphatic: no lymphadenopathy noted Chest Chest: normal inspection of the chest and no tenderness Resp Effort & Inspection: normal respiratory effort and able to speak in complete sentences Auscultation: clear to auscultation bilaterally Cardio Rate: regular rate Rhythm: regular rhythm GI Inspection: normal to inspection Palpation: soft, not firm, not rigid and nontender Auscultation: hypoactive bowel sounds Male General Exam: Yes normal external exam Back/Spine/Pelvis Thoracic/Lumbar Spine: thoracic and lumbar spine normal to inspection Pelvis: no pain with anterior-posterior compression Skin General skin exam: no rashes or lesions noted Neuro General: patient alert, patient awake, patient oriented x3, moves all extremities and no meningeal signs Cognition: normal cognition Speech: speech normal Motor: muscle tone normal throughout and strength 5/5 throughout Sensory Exam: no sensory deficits noted Extrem General: normal to inspection, full ROM, capillary refill normal, no calf tenderness bilaterally and no edema Other: Bilateral radial and PT pulses intact. Psych Appearance: grossly normal Mental Status: mental status grossly normal Speech and Movement: speech and movement normal Affect: normal affect Course <Breonna Bates DO - Last Filed: 09/26/22 20:08> Vital Signs Vital signs: Vital Signs Temperature 99.0 F 09/26/22 17:33 Pulse 104 H 09/26/22 17:33 Respiratory Rate 18 09/26/22 17:33 Blood Pressure 133/82 09/26/22 17:33 Pulse Oximetry 99 09/26/22 17:33 Temperature 99.0 F 09/26/22 17:33 Temperature Source Skin 09/26/22 17:33 Pulse 104 H 09/26/22 17:33 Respiratory Rate 18 09/26/22 17:33 Respiratory Effort Short of Breath 09/26/22 17:36 Blood Pressure 133/82 09/26/22 17:33 Blood Pressure Position Supine 09/26/22 17:33 Pulse Oximetry 99 09/26/22 17:33 Oxygen Delivery Method Room Air 09/26/22 17:33 Oxygen Flow Rate 0 09/26/22 17:33 Pain Level 0 09/26/22 17:33 Sign Out <Breonna Bates DO - Last Filed: 09/26/22 20:08> Sign Out Data: Sign Out Comment: Follow up on labs and final disposition. Last updated by Breonna Bates DO at 09/26/22 20:09
[2022-09-26 20:13] LABS: Abs Immature Grans 0.02 10^3/uL (0.0-0.06); Absolute Basophil Count 0.05 10^3/uL (0.0-0.2); Absolute Lymphocyte Count 2.41 10^3/uL (1.2-3.4); Absolute Monocyte Count 0.94 10^3/uL (0.1-0.8); Absolute Neutrophil Count 4.47 10^3/uL (1.2-6.7); Basophils % 0.6; Eosinophils % 3.7; HCT 32.7 % (40.0-50.0); HGB 11.4 g/dL (13.5-17.5); Immature Grans % 0.2; Lymphocytes % 29.4; MCH 31.2 pg (27.0-33.0); MCHC 34.9 % (32.0-36.0); MCV 90 fL (80-95); MPV 10.3 fL (8.0-11.0); Monocytes % 11.5; Neutrophils % 54.6; Platelet Count 265 10^3/uL (130-400); RBC 3.65 10^6/uL (4.36-5.78); RDW 11.9 % (11.8-14.1); RDW-SD 38.7 fL; WBC 8.19 10^3/uL (4.4-10.8)
[2022-09-26 20:14] VITALS: RESP 16
[2022-09-26 20:25] LABS: Magnesium 1.9 mg/dL (1.8-2.4)
[2022-09-26 20:31] LABS: ALT 42 U/L (16-63); AST 34 U/L (15-37); Albumin 3.2 g/dL (3.4-5.0); Alkaline Phosphatase 110 U/L (46-116); Anion Gap 5.5 mmol/L (3-11); BUN 19 mg/dL (7-18); Bilirubin, Total 0.1 mg/dL (0.2-1.0); CO2 30.5 mmol/L (21.0-32.0); CREATININE 1.3 mg/dL (0.70-1.30); Calcium 8.3 mg/dL (8.5-10.1); Chloride 103 mmol/L (98-107); Estimated GFR 76.74 (mL/min/1.73m2); Glucose 84 mg/dL (74-106); Potassium 3.7 mmol/L (3.5-5.1); Sodium 139 mmol/L (136-145); Total Protein 7.4 g/dL (6.4-8.2)
[2022-09-26 20:50] LABS: COVID-19 PCR Negative (Negative); Influenza A PCR Negative (Negative); Influenza B PCR Negative (Negative); RSV PCR Negative (Negative)
[2022-09-26 20:51] LABS: Source Nasopharynx
[2022-09-26 21:03] VITALS: BP 112/69; PULSE 77; RESP 17; TEMP 36.7; O2SAT 96
== END 2022-09-26 21:10 | disposition home or self-care (01) ==
PROVIDERS: Physician Assistant; Emergency Provider Emergency Medicine; PCP Family Medicine
DX: R06.02 Shortness of breath (principal); E83.51 Hypocalcemia; Z20.822 Contact with and (suspected) exposure to COVID-19; R20.2 Paresthesia of skin; R42 Dizziness and giddiness; R53.83 Other fatigue
CPT/HCPCS: 36415; 80053; 87637; 99283; 83735; 85025

== ENCOUNTER 2022-10-02 15:38 | Emergency (ER) | payer OTHER, SELFPAY ==
[2022-10-02 15:43] VITALS: BP 125/80; PULSE 92; RESP 16; TEMP 36.7
--- NOTE | 2022-10-02 17:18 | NUR.NOTE ---
Nursing Note: Fozia Gama [employer] went out to waiting room @ [phone] to see pt but he was not in waiting room. He was seen leaving the hospital.
== END 2022-10-02 17:16 | disposition left against medical advice (07) ==
PROVIDERS: PCP Family Medicine
DX: Z53.21 Procedure and treatment not carried out due to patient leaving prior to being seen by health care provider (principal)

== ENCOUNTER 2022-10-03 21:00 | Emergency (ER) | payer OTHER, SELFPAY ==
[2022-10-03] VITALS (10 sets, daily range): BP systolic 104–141; BP diastolic 62–83; PULSE 65–93; RESP 11–19; TEMP 36.9; O2SAT 92–97
--- NOTE | 2022-10-03 21:15 | DI.CT_ITS ---
Exam(s) CT HEAD CERVICAL SPINE WO EXAM: CT HEAD CERVICAL SPINE WO CLINICAL HISTORY: fall from latter, L neck pain/arm tingling. TECHNIQUE: Imaging Protocol: Axial computed tomography images with coronal and sagittal reformatted images were created and reviewed COMPARISON: CT CT HEAD WO from 06/11/2022 FINDINGS: BRAIN: There are no skull fractures. There is mucosal thickening in the floor both maxillary sinuses, not associated with fluid levels. N o fractures evident. There is no evidence of intracranial hemorrhage, mass effect, or shift of midline structures. There are no extra-axial fluid collections. The ventricles are not enlarged or shifted and there is no blo od within the ventricular system nor within the basal cisterns. CERVICAL SPINE: There is no evidence of fracture nor listhesis. No significant prevertebral soft tissue swelling. There is no significant facet joint malalignment. No significant osseous lesions evident. IMPRESSION: No acute intracranial findings on this noninfused CT scan of the brain. No evidence of cervical spine fracture, malalignment, nor acute compromise of the cervical spinal can al. RADIATION DOSE DELIVERED: 1,554.9mGy.cm Total DLP DATA REPOSITORY: All CT scans at this facility are submitted to the National Radiology Data Registry (NRDR) Dose Index Registry (DIR) with the [employer] ([employer]). RADIATION OPTIMIZATION: All CT scans at this facility use at least one of these dose optimization te chniques: automated exposure control; mA and/or kV adjustment per patient size (includes targeted exa ms where dose is matched to clinical indication); or iterative reconstruction.
--- NOTE | 2022-10-03 21:15 | DI.CT_ITS ---
Exam(s) CT CHEST WO EXAM: CT CHEST WO CLINICAL HISTORY: fall from latter, L neck pain/arm tingling, T5 jeff. TECHNIQUE: Multi planar reconstructions were performed. CONTRAST MATERIAL: None COMPARISON: CT CT ABDOMEN PELVIS W from 08/23/2022 FINDINGS: CHEST: LUNGS: No lung contusion or pleural effusion. No pneumothorax. No infiltrates. No incidental pulmo nary nodules. MEDIASTINUM: No sternal fracture nor mediastinal hematoma. No incidental adenopathy.Partially visual ized thyroid unremarkable. CARDIAC: Heart size is normal. There is no pericardial effusion.Caliber of the thoracic aorta is wit hin normal limits. Other: Bilateral gynecomastia noted. VISUALIZED UPPER ABDOMEN:No significant findings. OSSEOUS: No significant osseous lesions.. IMPRESSION: 1. No significant acute intrathoracic findings on this non infused CT scan. RADIATION DOSE DELIVERED: 1074.95 mGy.cm Total DLP DATA REPOSITORY: All CT scans at this facility are submitted to the National Radiology Data Registry (NRDR) Dose Index Registry (DIR) with the [employer] (ACR). RADIATION OPTIMIZATION: All CT scans at this facility use at least one of these dose optimization te chniques: automated exposure control; mA and/or kV adjustment per patient size (includes targeted exa ms where dose is matched to clinical indication); or iterative reconstruction.
--- NOTE | 2022-10-03 21:18 | DI.CT_ITS ---
Exam(s) CT THORACIC SPINE RECONS EXAM: CT THORACIC SPINE RECONS CLINICAL HISTORY: fall from latter, L neck pain/arm tingling, T5 jeff. TECHNIQUE: Imaging Protocol: Axial computed tomography images with coronal and sagittal reformatted images were created and reviewed. CONTRAST MATERIAL: Intravenous: Omnipaque 350 Contrast volume:structured data in ml Contrast route:I V - Oral: yes / no COMPARISON: CT CT CHEST WO from 10/03/2022 FINDINGS: Bones: No evidence of thoracic vertebral fractures. No listhesis. No facet malalignment. No disc s pace narrowing. IMPRESSION: No fractures of the thoracic vertebral bodies evident. RADIATION DOSE DELIVERED: Total DLP DATA REPOSITORY: All CT scans at this facility are submitted to the National Radiology Data Registry (NRDR) Dose Index Registry (DIR) with the [employer] (ACR). RADIATION OPTIMIZATION: All CT scans at this facility use at least one of these dose optimization te chniques: automated exposure control; mA and/or kV adjustment per patient size (includes targeted exa ms where dose is matched to clinical indication); or iterative reconstruction.
[2022-10-03 21:31] LABS: Abs Immature Grans 0.02 10^3/uL (0.0-0.06); Absolute Basophil Count 0.04 10^3/uL (0.0-0.2); Absolute Eosinophil Count 0.29 10^3/uL (0.0-0.7); Absolute Lymphocyte Count 2.12 10^3/uL (1.2-3.4); Absolute Monocyte Count 0.81 10^3/uL (0.1-0.8); Absolute Neutrophil Count 3.91 10^3/uL (1.2-6.7); Basophils % 0.6; HCT 36.2 % (40.0-50.0); HGB 12.2 g/dL (13.5-17.5); Immature Grans % 0.3; Lymphocytes % 29.5; MCH 30.7 pg (27.0-33.0); MCHC 33.7 % (32.0-36.0); MCV 91 fL (80-95); MPV 10.4 fL (8.0-11.0); Monocytes % 11.3; Neutrophils % 54.3; Platelet Count 301 10^3/uL (130-400); RBC 3.98 10^6/uL (4.36-5.78); RDW 12.2 % (11.8-14.1); RDW-SD 40.3 fL; WBC 7.19 10^3/uL (4.4-10.8)
[2022-10-03 21:41] LABS: Magnesium 1.9 mg/dL (1.8-2.4)
--- NOTE | 2022-10-03 21:43 | ED.GENADUL_ITS ---
Discharge Plan Disposition Patient Disposition: Home Condition: Stable Discharge Details Clinical Impression: Neck pain on left side, Neuralgia of left upper extremity Primary Care Provider: Brendon Vivar ED Provider: Richy Eagle Home Meds and New Rx's Prescriptions: No Action acetaminophen 325 mg capsule 650 mg PO Q6H PRN fluoxetine 20 mg capsule 60 mg PO DAILY Qty: 270 3RF methadone 10 mg/5 mL solution 110 mg PO QAM prednisone 50 mg tablet 50 mg PO DAILY 7 Days Qty: 7 0RF clonazepam 1 mg tablet 1 mg PO BID MDD 2mg PRN (Reason: severe anxiety episodes) Qty: 28 0RF Rx Instructions: Continue increased dose for acute anxiety episodes esomeprazole magnesium [Nexium] 20 mg capsule,delayed release(DR/EC) 20 mg PO DAILY Qty: 30 0RF calcium carbonate [Tums] 200 mg calcium (500 mg) tablet,chewable 1,000 mg PO BID Qty: 0 0RF Hold Instructions: Resume on 06/15/22. calcitriol 0.5 mcg capsule 0.5 mcg PO BID Qty: 360 3RF Hold Instructions: Resume on 06/15/22. gabapentin 800 mg tablet 300 mg PO DAILY ibuprofen 200 mg Tablet 600 mg PO PRN PRN magnesium gluconate 27 mg magnesium (500 mg) tablet 27 mg PO BID Qty: 30 0RF sucralfate [Carafate] 1 gram tablet 1 gm PO QACHS Qty: 14 0RF Discharge Instructions Instructions: Neck Pain (ED) Additional Instructions: As we discussed, it is our recommendation that you stay overnight to probably get the MRI tomorrow. Through shared decision-making process you have elected to go home tonight. You will be contacted for your appointment time for your MRI tomorrow. If you do not hear back from imaging by 9 AM, please contact the [facility] imaging department/radiology department to confirm your appointment time. Please leave the cervical collar on at all times. If you notice any worsening of your symptoms, or any new symptoms such as vomiting, diarrhea, fever, chills, shortness of breath, chest pain, numbness, weakness, or fainting , please return immediately to the emergency department for reevaluation. Please follow up with your primary care provider as soon as possible for reassessment and reevaluation. As always, it was a pleasure participating in your medical care today. Referrals: Brendon Vivar DO [Primary Care Provider] - Medical Decision Making This is a 26-year-old male with a past medical history significant for anxiety, depression, who presents today for evaluation of cough.? High cholesterol, men type I, multiple electrolyte abnormalities with subsequent parathyroidectomy on 03/26/2022 at [facility] [place], PTSD, presents today for evaluation after a fall. Patient states that he was on a wet ladder yesterday, when he fell from about 6 feet in height. He landed on his left shoulder and neck. He denies hitting his head. He denies any loss of consciousness. He had pain in his left neck and shoulder at that time, and initially came to the ER but noted just was too busy that day and then went home. He presents today with continued pain. He states that when he turns or bends his neck to the left he develops pain numbness and tingling going down his left arm to his left foot. He admits to mild headache. He denies any chest pain or shortness of breath. He denies any other complaints. He states that the numbness and tingling is not present when he does not move his neck. He was placed in a c-collar immediately on arrival. No other complaints at this time. No other modifying factors. Exam demonstrates tenderness over the midline cervical spine, as well as the upper thoracic spine. No numbness or tingling on exam or assessment, no diminishment in strength, however downward pressure on the head does elicit slight worsening of the patient's tingling on the left that he had experienced. Concern for mobility or nerve injury. We will get CT scan, monitor closely and reassess. 11:[address] imaging has returned and per radiology no acute process is noted. Patient is in the [place] collar. Because of the patient's symptoms I did recommend MRI to rule out acute impingement. Pedro Pablo does agree with this, but he does not want to stay in the ER this evening. It is my recommendation that he stays overnight in the ED until we can get the MRI in the morning. I did discuss the risks and benefits of going home, including the potential for worsening injury, worsening pain, and potential life-threatening injury, Pedro Pablo understands this but still like to go home at this time as he feels well. Respecting the patient's wishes he will go home, we have placed the outpatient order for immediate MRI. Discussed red flags which to return. I have extensively reviewed the treatment plan and discharge instructions with the patient. I have addressed all patient concerns at this time. The patient was made aware of what symptoms to monitor for that would warrant a return to the emergency department. Discussed the plan with the patient, they demonstrate verbal understanding and agreement with our assessment and plan at this time. The documentation in this chart was dictated using [employer] dictation software. Please excuse any dictation errors. FINDINGS: Brain: Mild volume loss. No hemorrhage. Unremarkable white matter. No mass effect. Cerebral ventricles: No ventriculomegaly. Paranasal sinuses: Mild mucosal thickening. No fluid levels. Mastoid air cells: Visualized mastoid air cells are well aerated. Bones/joints: Unremarkable. No acute fracture. Soft tissues: Unremarkable. IMPRESSION: No acute intracranial hemorrhag FINDINGS: Bones/joints: No acute fracture. Mild lordosis straightening. No significant disc bulge or herniation. No severe spinal canal stenosis. No significant neural foraminal narrowing. Lungs: Lung apices are normal. Soft tissues: Surgical clips surrounding the thyroid lobes may represent prior parathyroidectomy IMPRESSION: No acute cervical fracture Straightening of the cervical lordosis may be positional or related to muscle spasm. Thank you for allowing us to participate in the care of your patient. Dictated and Authenticated by: Kameron Granger MD 10/03/2022 9:59 PM Eastern Time ([place] & [place]) FINDINGS: Lungs: Unremarkable. No consolidation. No masses. Pleural spaces: Unremarkable. No pneumothorax. No pleural effusion. Heart: Unremarkable. No cardiomegaly. No pericardial effusion. Lymph nodes: Unremarkable. No enlarged lymph nodes. Vasculature: Unremarkable. No aortic aneurysm. Bones/joints: Chronic T1 spinous process fracture. Question chronic left 1st rib fracture No acute fracture. Soft tissues: Unremarkable. IMPRESSION: No acute findings. Thank you for allowing us to participate in the care of your patient. Dictated and Authenticated by: Kameron Granger MD 10/03/2022 10:04 PM Eastern Time ([place] & [place]) FINDINGS: Bones/joints: No acute fracture. Chronic T1 spinous process fracture Normal alignment. No significant disc bulge or herniation. No severe spinal canal stenosis. No significant neural foraminal narrowing. Soft tissues: Unremarkable. IMPRESSION: No acute findings Thank you for allowing us to participate in the care of your patient. Dictated and Authenticated by: Kameron Granger MD 10/03/2022 10:04 PM Eastern Time ([place] & [place]) FINDINGS: Bones/joints: No acute fracture. Chronic T1 spinous process fracture Normal alignment. No significant disc bulge or herniation. No severe spinal canal stenosis. No significant neural foraminal narrowing. Soft tissues: Unremarkable. IMPRESSION: No acute findings Thank you for allowing us to participate in the care of your patient. Dictated and Authenticated by: Kameron Granger MD 10/03/2022 10:04 PM Eastern Time ([place] & [place]) HPI General Date/Time Provider Initiated Documentation: 10/03/22 21:11 . HPI Narrative: This is a 26-year-old male with a past medical history significant for anxiety, depression, who presents today for evaluation of cough.? High cholesterol, men type I, multiple electrolyte abnormalities with subsequent parathyroidectomy on 03/26/2022 at [facility] [place], PTSD, presents today for evaluation after a fall. Patient states that he was on a wet ladder yesterday, when he fell from about 6 feet in height. He landed on his left shoulder and neck. He denies hitting his head. He denies any loss of consciousness. He had pain in his left neck and shoulder at that time, and initially came to the ER but noted just was too busy that day and then went home. He presents today with continued pain. He states that when he turns or bends his neck to the left he develops pain numbness and tingling going down his left arm to his left foot. He admits to mild headache. He denies any chest pain or shortness of breath. He denies any other complaints. He states that the numbness and tingling is not present when he does not move his neck. He was placed in a c-collar immediately on arrival. No other complaints at this time. No other modifying factors. Related Data Home Medications Medication Instructions Recorded Confirmed methadone 10 mg/5 mL oral solution 110 mg PO QAM 11/16/21 10/02/22 acetaminophen 325 mg capsule 650 mg PO Q6H PRN 06/07/22 10/02/22 calcitriol 0.5 mcg capsule 0.5 mcg PO BID #360 caps 06/14/22 10/02/22 calcium carbonate 200 mg calcium 1,000 mg PO BID #0 tabs 06/14/22 10/02/22 (500 mg) chewable tablet (Tums) magnesium gluconate 27 mg 27 mg PO BID #30 tabs 07/17/22 10/02/22 magnesium (500 mg) tablet fluoxetine 20 mg capsule 60 mg PO DAILY #270 caps 07/18/22 10/02/22 sucralfate 1 gram tablet (Carafate) 1 gm PO QACHS #14 tabs 09/08/22 10/02/22 gabapentin 800 mg tablet 300 mg PO DAILY 09/19/22 10/02/22 ibuprofen 200 mg tablet 600 mg PO PRN PRN 09/19/22 10/02/22 clonazepam 1 mg tablet 1 mg PO BID PRN severe anxiety 09/24/22 10/02/22 episodes #28 tabs esomeprazole magnesium 20 mg 20 mg PO DAILY #30 caps 09/24/22 10/02/22 capsule,delayed release (Nexium) prednisone 50 mg tablet 50 mg PO DAILY 7 days #7 tabs 09/24/22 10/02/22 Previous Rx's Medication Instructions Recorded calcitriol 0.5 mcg capsule 0.5 mcg PO BID #360 caps 06/14/22 calcium carbonate 200 mg calcium 1,000 mg PO BID #0 tabs 06/14/22 (500 mg) chewable tablet (Tums) magnesium gluconate 27 mg 27 mg PO BID #30 tabs 07/17/22 magnesium (500 mg) tablet fluoxetine 20 mg capsule 60 mg PO DAILY #270 caps 07/18/22 sucralfate 1 gram tablet (Carafate) 1 gm PO QACHS #14 tabs 09/08/22 clonazepam 1 mg tablet 1 mg PO BID PRN severe anxiety 09/24/22 episodes #28 tabs esomeprazole magnesium 20 mg 20 mg PO DAILY #30 caps 09/24/22 capsule,delayed release (Nexium) prednisone 50 mg tablet 50 mg PO DAILY 7 days #7 tabs 09/24/22 Allergies Allergy/AdvReac Type Severity Reaction Status Date / Time codeine Allergy Intermediate Verified 10/02/22 15:47 amoxicillin AdvReac Intermediate Nausea Verified 10/02/22 15:47 General Stated Complaint: Fall/Non TraumaCriteria ADRIANA: 3 Review of Systems All systems reviewed & are unremarkable except as noted in HPI and below PFSH All Active Problems (Updated 10/03/22 @ 23:26 by Richy Eagle DO) Shortness of breath (Acute) Neck pain on left side (Acute) Neuralgia of left upper extremity (Acute) Cervical radiculopathy (Acute) Contusion of left leg (Acute) Gynecomastia, male (Acute) b/l, per CT (Jul 2022).. Possible 2' Methadone, Clnzpm (?). Surg eval (+)/No further action. CKD (chronic kidney disease) stage 2, GFR 60-89 ml/min (Acute) GFR 64-65, with Hx FLORESITA and GFR < 45 Complex medical condition (Acute) Serious electrolyte imbalances, with gynecomastia, possible MEN Dx, CKD and anemia with baseline anxiety and Hx PTSD. History of electrolyte imbalance (Acute) Neck pain on left side (Acute) with shoulder, upper back pain.. torticollis, radiating into left hip/leg Acute epigastric pain (Acute) Gastroesophageal reflux disease (Chronic) Gastritis (Acute) Chest pain (Acute) Anxiety (Chronic) Hypomagnesemia (Acute) Hypocalcemia (Acute) Epigastric abdominal pain (Acute) Encounter for medication administration (Acute) History of anxiety (Acute) Pulmonary nodule 1 cm or greater in diameter (Acute) Therapeutic opioid induced constipation (Acute) Sphincter of Oddi dysfunction (Acute) Abnormal CT scan, kidney (Acute) Intrahepatic bile duct dilation (Acute) Common bile duct dilatation (Acute) Abdominal pain (Acute) Iatrogenic hypocalcemia (Acute) Multiple endocrine neoplasia type I (Chronic) Chronic constipation (Chronic) Primary hyperparathyroidism (Chronic) Depression (Chronic) Hypocalcemia (Chronic) Hypomagnesemia (Chronic) Depression (Chronic) Suicidal ideation (Acute) Elevated parathyroid hormone (Acute) Family history of coronary arteriosclerosis (Chronic) Father of WA at 50, mother had WA at 42 Severe anxiety with panic (Acute) Cellulitis (Acute) Medical History Anxiety Depression Family history of multiple endocrine neoplasia, type 1 Hyperlipidemia Hypocalcemia PTSD (post-traumatic stress disorder) Surgical History H/O parathyroidectomy Family History Mother Anxiety Asthma Depression Sister Anxiety Depression Father Cancer lung & stomach Depression Diabetes Hypertension MEN 1 (multiple endocrine neoplasia) Social History Smoking/Tobacco Use Status: Never Smoking risk assessment performed?: Yes Alcohol Intake: never 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 Adopted: No Caregiver/Support person: No Foster care: No Household members: none Housing: house Number of Children: 0 Communication Needs: None Education Level: high school Do you need help understanding health information?: Never 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 and animals: Yes (Ally) Pets and animals: dog(s) Sexually active: No Do you think of yourself as: straight/heterosexual Current gender identity: male What is your relationship status?: How often do you talk on the phone with friends or family?: twice per week How often do you get together with friends or relatives?: never Do you belong to any clubs or organized social groups?: no Panel score (0-1 are the most socially isolated patients): 0 What type of physical activity do you participate in: walking Duration: 15-30 minutes/day Frequency: 5-6 times per week Maryam/Episcopal: Taoism Special maryam needs: No Seatbelt use: always Helmet use: Yes Helmet use: always Drive 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 driver license technician: No Do you feel safe at home: Yes Do you feel safe in your relationship?: Yes Exam Narrative Exam Narrative: 1.Const: Well-nourished, Well-developed, appearing stated age 2.Eyes: PERRL, no conjunctival injection, and symmetrical lids. 3.ENT: Atraumatic external nose and ears. Moist MM. Neck: Symmetric, trachea midline, No thyromegaly. There is no evidence of raccoon eyes, anthony sign, CSF rhinorrhea, mastoid tenderness, cranial crepitus, hemotympanum, exophthalmos, or hyphema. Patient demonstrates intact dentition with no signs of tooth avulsion or fracture, no signs of jaw deformity, no evidence of a LeFort's fracture, with an intact palate, nose and orbital region. There is no evidence of a nasal septal hematoma. No proptosis. Jaw closes symmetrically. Airway is clear. 4.CVS: +S1/S2, No murmurs or gallops. Peripheral pulses 2+ and equal in all extremities. Brisk capillary refill in all extremities. 5.RESP: Unlabored respiratory effort. Clear to auscultation bilaterally. No wheezes rales or rhonchi 6.GI: Soft, Nontender/Nondistended, No hepatosplenomegaly. No guarding or rebound. 7.MSK: Normocephalic/Atraumatic, Extremities w/o deformity or ttp No cyanosis or clubbing, Normal movement of all extremities. Midline cervical spine tenderness for C3-C7, as well as T4-T5. C-collar remained in place. No lumbar spine tenderness. Patient has +5 out of 5 strength in the lower extremities in dorsiflexion and plantarflexion, knee flexion and extension, hip flexion and extension. Normal strength for dorsiflexion and plantar flexion of the great toe bilaterally. There is +2 over 2 dorsalis pedis pulses bilaterally. There is normal sensation to the skin with light touch at the foot, knee, and hip. Normal saddle sensation. Good sensation over the deep sural nerve area bilaterally. Rectal exam demonstrates good rectal tone with excellent aliyah-rectal sensation. Reflexes are +2 over 4 in the patellar reflex bilaterally. +5 out of 5 strength in the medial, ulnar, radial nerve distribution bilaterally in the hands as well as intact light touch sensation to these dermatomes on the hands 8.Skin: Warm, Dry. No rashes or lesions. 9.Neuro: hourly associate II-XII grossly intact. Sensation grossly intact, no focal neurologic deficits. 10.Psych: (AAO) x3. Appropriate mood and affect Course Vital Signs Vital signs: Vital Signs Temperature 36.9 C 10/03/22 21:10 Pulse 93 H 10/03/22 21:10 Respiratory Rate 15 10/03/22 21:10 Blood Pressure 141/83 H 10/03/22 21:10 Temperature 36.9 C 10/03/22 21:10 Temperature Source Tympanic 10/03/22 21:10 Pulse 93 H 10/03/22 21:10 Respiratory Rate 15 10/03/22 21:10 Respiratory Effort Normal 10/03/22 21:34 Respiratory Depth Normal 10/03/22 21:34 Respiratory Pattern Normal 10/03/22 21:34 Blood Pressure 141/83 H 04/20/23 21:10 Blood Pressure Position Supine 10/03/22 21:10 Oxygen Delivery Method Room Air 10/03/22 21:10 Oxygen Flow Rate 0 10/03/22 21:10 Pain Level 10 10/03/22 21:39 Lab/Test Results Lab/Test Results: Laboratory Tests Range/Units 10/03/22 21:20 WBC (4.4-10.8) 10^3/uL 7.19 RBC (4.36-5.78) 10^6/uL 3.98 L Hgb (13.5-17.5) g/dL 12.2 L Hct (40.0-50.0) % 36.2 L MCV (80-95) fL 91 MCH (27.0-33.0) pg 30.7 MCHC (32.0-36.0) % 33.7 RDW (11.8-14.1) % 12.2 Plt Count (130-400) 10^3/uL 301 MPV (8.0-11.0) fL 10.4 Immature Gran % 0.3 Neutrophils % 54.3 Lymphocytes % 29.5 Monocytes % 11.3 Eosinophils % 4.0 Basophils % 0.6 Nucleated RBC % (0.0-0.3) % 0.0 Absolute Neutrophils (1.2-6.7) 10^3/uL 3.91 Absolute Lymphocytes (1.2-3.4) 10^3/uL 2.12 Absolute Monocytes (0.1-0.8) 10^3/uL 0.81 H Absolute Eosinophils (0.0-0.7) 10^3/uL 0.29 Absolute Basophils (0.0-0.2) 10^3/uL 0.04
[2022-10-03 21:46] LABS: ALT 52 U/L (16-63); AST 29 U/L (15-37); Albumin 3.6 g/dL (3.4-5.0); Alkaline Phosphatase 123 U/L (46-116); Anion Gap 5.9 mmol/L (3-11); BUN 17 mg/dL (7-18); Bilirubin, Total 0.3 mg/dL (0.2-1.0); CO2 33.1 mmol/L (21.0-32.0); CREATININE 1.3 mg/dL (0.70-1.30); Chloride 100 mmol/L (98-107); Estimated GFR 76.74 (mL/min/1.73m2); Glucose 103 mg/dL (74-106); Potassium 3.8 mmol/L (3.5-5.1); Sodium 139 mmol/L (136-145); Total Protein 8.2 g/dL (6.4-8.2)
--- NOTE | 2022-10-03 22:00 | DI.VRAD_ITS ---
PROCEDURE INFORMATION: Exam: CT Head Without Contrast Exam date and time: 10/03/2022 9:39 PM Age: 26 years old Clinical indication: Injury or trauma; Fall; Blunt trauma (contusions or hematomas); Consciousness not specified; Additional info: Fall from latter, L neck pain/arm tingling TECHNIQUE: Imaging protocol: Computed tomography of the head without contrast. Radiation optimization: All CT scans at this facility use at least one of these dose optimization techniques: automated exposure control; mA and/or kV adjustment per patient size (includes targeted exams where dose is matched to clinical indication); or iterative reconstruction. COMPARISON: CT HEAD WO 06/11/2022 3:18 PM FINDINGS: Brain: Mild volume loss. No hemorrhage. Unremarkable white matter. No mass effect. Cerebral ventricles: No ventriculomegaly. Paranasal sinuses: Mild mucosal thickening. No fluid levels. Mastoid air cells: Visualized mastoid air cells are well aerated. Bones/joints: Unremarkable. No acute fracture. Soft tissues: Unremarkable. IMPRESSION: No acute intracranial hemorrhage PROCEDURE INFORMATION: Exam: CT Cervical Spine Without Contrast Exam date and time: 10/03/2022 9:39 PM Age: 26 years old Clinical indication: Injury or trauma; Fall; Blunt trauma (contusions or hematomas); Consciousness not specified; Additional info: Fall from latter, L neck pain/arm tingling TECHNIQUE: Imaging protocol: Computed tomography of the cervical spine without contrast. Radiation optimization: All CT scans at this facility use at least one of these dose optimization techniques: automated exposure control; mA and/or kV adjustment per patient size (includes targeted exams where dose is matched to clinical indication); or iterative reconstruction. COMPARISON: CT HEAD WO 06/11/2022 3:18 PM FINDINGS: Bones/joints: No acute fracture. Mild lordosis straightening. No significant disc bulge or herniation. No severe spinal canal stenosis. No significant neural foraminal narrowing. Lungs: Lung apices are normal. Soft tissues: Surgical clips surrounding the thyroid lobes may represent prior parathyroidectomy IMPRESSION: No acute cervical fracture Straightening of the cervical lordosis may be positional or related to muscle spasm. Dictated and Authenticated by: Kameron Granger MD. Ordering:MIS Lockhart MD
--- NOTE | 2022-10-03 22:05 | DI.VRAD_ITS ---
PROCEDURE INFORMATION: Exam: CT Chest Without Contrast; Diagnostic Exam date and time: 10/03/2022 9:46 PM Age: 26 years old Clinical indication: Injury or trauma; Fall; Blunt trauma (contusions or hematomas); Additional info: Fall from latter, L neck pain/arm tingling TECHNIQUE: Imaging protocol: Diagnostic computed tomography of the chest without contrast. 3D rendering (Not supervised by radiologist): MIP and/or 3D reconstructed images were created by the technologist. Radiation optimization: All CT scans at this facility use at least one of these dose optimization techniques: automated exposure control; mA and/or kV adjustment per patient size (includes targeted exams where dose is matched to clinical indication); or iterative reconstruction. COMPARISON: CT CHEST WO CONTRAST (GENERIC) 05/20/2022 1:22 AM FINDINGS: Lungs: Unremarkable. No consolidation. No masses. Pleural spaces: Unremarkable. No pneumothorax. No pleural effusion. Heart: Unremarkable. No cardiomegaly. No pericardial effusion. Lymph nodes: Unremarkable. No enlarged lymph nodes. Vasculature: Unremarkable. No aortic aneurysm. Bones/joints: Chronic T1 spinous process fracture. Question chronic left 1st rib fracture No acute fracture. Soft tissues: Unremarkable. IMPRESSION: No acute findings. Dictated and Authenticated by: Kameron Granger MD. Ordering:MIS Lockhart MD
--- NOTE | 2022-10-03 22:05 | DI.VRAD_ITS ---
PROCEDURE INFORMATION: Exam: CT Thoracic Spine Without Contrast Exam date and time: 10/03/2022 9:46 PM Age: 26 years old Clinical indication: Injury or trauma; Blunt trauma (contusions or hematomas); Injury details: Fall from latter, L neck pain/arm tingling TECHNIQUE: Imaging protocol: Computed tomography of the thoracic spine without contrast. Radiation optimization: All CT scans at this facility use at least one of these dose optimization techniques: automated exposure control; mA and/or kV adjustment per patient size (includes targeted exams where dose is matched to clinical indication); or iterative reconstruction. COMPARISON: CT HEAD CERVICAL SPINE WO 10/03/2022 9:39 PM FINDINGS: Bones/joints: No acute fracture. Chronic T1 spinous process fracture Normal alignment. No significant disc bulge or herniation. No severe spinal canal stenosis. No significant neural foraminal narrowing. Soft tissues: Unremarkable. IMPRESSION: No acute findings Dictated and Authenticated by: Kameron Granger MD. Ordering:MIS Lockhart MD
== END 2022-10-03 23:42 | disposition home or self-care (01) ==
PROVIDERS: Emergency Provider Student in an Organized Health Care Education/Training Program; PCP Family Medicine
DX: M54.2 Cervicalgia (principal); R05.9 Cough, unspecified; M25.512 Pain in left shoulder; R20.0 Anesthesia of skin; R20.2 Paresthesia of skin; R51.9 Headache, unspecified
CPT/HCPCS: 71250; 80053; 99284; 70450; 72125; 83735; 85025; 99283

== ENCOUNTER 2022-10-06 15:55 | Emergency (ER) | payer OTHER, MEDICAID, SELFPAY ==
[2022-10-06 16:01] VITALS: BP 124/66; PULSE 100; RESP 18; TEMP 37.1; O2SAT 97
--- NOTE | 2022-10-06 16:19 | ED.GENADUL_ITS ---
Discharge Plan Disposition Patient Disposition: Home Discharge Details Clinical Impression: Tingling Primary Care Provider: Brendon Vivar ED Provider: Antoinette Templeton Home Meds and New Rx's Prescriptions: Continued acetaminophen 325 mg capsule 650 mg PO Q6H PRN fluoxetine 20 mg capsule 60 mg PO DAILY Qty: 270 3RF methadone 10 mg/5 mL solution 110 mg PO QAM prednisone 50 mg tablet 50 mg PO DAILY 7 Days Qty: 7 0RF Patient Comments: not taking clonazepam 1 mg tablet 1 mg PO BID MDD 2mg PRN (Reason: severe anxiety episodes) Qty: 28 0RF Rx Instructions: Continue increased dose for acute anxiety episodes esomeprazole magnesium [Nexium] 20 mg capsule,delayed release(DR/EC) 20 mg PO DAILY Qty: 30 0RF calcium carbonate [Tums] 200 mg calcium (500 mg) tablet,chewable 1,000 mg PO BID Qty: 0 0RF Hold Instructions: Resume on 06/15/22. calcitriol 0.5 mcg capsule 0.5 mcg PO BID Qty: 360 3RF Hold Instructions: Resume on 06/15/22. gabapentin 800 mg tablet 300 mg PO DAILY ibuprofen 200 mg Tablet 600 mg PO PRN PRN magnesium gluconate 27 mg magnesium (500 mg) tablet 27 mg PO BID Qty: 30 0RF sucralfate [Carafate] 1 gram tablet 1 gm PO QACHS Qty: 14 0RF Discharge Instructions Instructions: Cervical Sprain (ED) Additional Instructions: Follow up with primary care provider in 3-5 days. Increase oral fluids. Please keep your MRI appointment tomorrow Referrals: Brendon Vivar DO [Primary Care Provider] - 3 days Medical Decision Making 26-year-old male presents to the ER with a chief complaint of arms tingling and generally feeling unwell. He states that he thinks his calcium is low. He was seen here 2 days ago after falling off a ladder and is scheduled for a MRI of his C-spine tomorrow. He denies any chest pain shortness of breath. Patient is well-known to our department has a past medical history of parathyroidectomy, anxiety, hypocalcemia, hypomagnesemia, gastritis, chronic kidney disease, PTSD CBC CMP ordered to evaluate calcium. Calcium 8.6, slightly lower than couple days ago at 9.0. Patient reports that he is still taking Calcitrol and 2000 mg of Tums. I did encourage him to keep his MRI appointment tomorrow. Patient to be discharged he verbalizes understanding. This text was generated using [employer] system, please disregard any oddities of phrase or misspellings. Medical Records Medical records reviewed: Yes I reviewed the patient's medical records. Medical records narrative: Patient has been here to the ER 9 times in the last month Lab Data Lab results reviewed: Yes I reviewed the patient's lab results. Labs: Laboratory Tests Range/Units 10/06/22 10/06/22 16:50 16:50 WBC (4.4-10.8) 10^3/uL 7.45 RBC (4.36-5.78) 10^6/uL 3.79 L Hgb (13.5-17.5) g/dL 11.7 L Hct (40.0-50.0) % 34.3 L MCV (80-95) fL 91 MCH (27.0-33.0) pg 30.9 MCHC (32.0-36.0) % 34.1 RDW (11.8-14.1) % 12.1 Plt Count (130-400) 10^3/uL 281 MPV (8.0-11.0) fL 10.4 Immature Gran % 0.4 Neutrophils % 63.8 Lymphocytes % 22.7 Monocytes % 9.1 Eosinophils % 3.5 Basophils % 0.5 Nucleated RBC % (0.0-0.3) % 0.0 Absolute Neutrophils (1.2-6.7) 10^3/uL 4.75 Absolute Lymphocytes (1.2-3.4) 10^3/uL 1.69 Absolute Monocytes (0.1-0.8) 10^3/uL 0.68 Absolute Eosinophils (0.0-0.7) 10^3/uL 0.26 Absolute Basophils (0.0-0.2) 10^3/uL 0.04 Sodium (136-145) mmol/L 137 Potassium (3.5-5.1) mmol/L 3.9 Chloride (98-107) mmol/L 102 Carbon Dioxide (21.0-32.0) mmol/L 32.5 H Anion Gap (3-11) mmol/L 2.5 L BUN (7-18) mg/dL 17 Creatinine (0.70-1.30) mg/dL 1.3 Est GFR (CKD-EPI 2020) (mL/min/1.73m2) 76.74 Glucose (74-106) mg/dL 90 Calcium (8.5-10.1) mg/dL 8.6 Total Bilirubin (0.2-1.0) mg/dL 0.3 AST (15-37) U/L 25 ALT (16-63) U/L 42 Alkaline Phosphatase (46-116) U/L 114 Total Protein (6.4-8.2) g/dL 7.7 Albumin (3.4-5.0) g/dL 3.4 HPI General Mode of arrival: ambulatory . Date/Time Provider Initiated Documentation: 10/06/22 16:07 . Limitations to Documentation: no limitations . Information obtained by: patient, RN notes reviewed and old records reviewed . HPI Narrative: 26-year-old male presents to the ER with a chief complaint of arms tingling and generally feeling unwell. He states that he thinks his calcium is low. He was seen here 2 days ago after falling off a ladder and is scheduled for a MRI of his C-spine tomorrow. He denies any chest pain shortness of breath. Patient is well-known to our department has a past medical history of parathyroidectomy, anxiety, hypocalcemia, hypomagnesemia, gastritis, chronic kidney disease, PTSD Related Data Home Medications Medication Instructions Recorded Confirmed methadone 10 mg/5 mL oral solution 110 mg PO QAM 11/16/21 10/06/22 acetaminophen 325 mg capsule 650 mg PO Q6H PRN 06/07/22 10/06/22 calcitriol 0.5 mcg capsule 0.5 mcg PO BID #360 caps 06/14/22 10/06/22 calcium carbonate 200 mg calcium 1,000 mg PO BID #0 tabs 06/14/22 10/06/22 (500 mg) chewable tablet (Tums) magnesium gluconate 27 mg 27 mg PO BID #30 tabs 07/17/22 10/06/22 magnesium (500 mg) tablet fluoxetine 20 mg capsule 60 mg PO DAILY #270 caps 07/18/22 10/06/22 sucralfate 1 gram tablet (Carafate) 1 gm PO QACHS #14 tabs 09/08/22 10/06/22 gabapentin 800 mg tablet 300 mg PO DAILY 09/19/22 10/06/22 ibuprofen 200 mg tablet 600 mg PO PRN PRN 09/19/22 10/06/22 clonazepam 1 mg tablet 1 mg PO BID PRN severe anxiety 09/24/22 10/06/22 episodes #28 tabs esomeprazole magnesium 20 mg 20 mg PO DAILY #30 caps 09/24/22 10/06/22 capsule,delayed release (Nexium) prednisone 50 mg tablet 50 mg PO DAILY 7 days #7 tabs 09/24/22 10/02/22 Previous Rx's Medication Instructions Recorded calcitriol 0.5 mcg capsule 0.5 mcg PO BID #360 caps 06/14/22 calcium carbonate 200 mg calcium 1,000 mg PO BID #0 tabs 06/14/22 (500 mg) chewable tablet (Tums) magnesium gluconate 27 mg 27 mg PO BID #30 tabs 07/17/22 magnesium (500 mg) tablet fluoxetine 20 mg capsule 60 mg PO DAILY #270 caps 07/18/22 sucralfate 1 gram tablet (Carafate) 1 gm PO QACHS #14 tabs 09/08/22 clonazepam 1 mg tablet 1 mg PO BID PRN severe anxiety 09/24/22 episodes #28 tabs esomeprazole magnesium 20 mg 20 mg PO DAILY #30 caps 09/24/22 capsule,delayed release (Nexium) prednisone 50 mg tablet 50 mg PO DAILY 7 days #7 tabs 09/24/22 Allergies Allergy/AdvReac Type Severity Reaction Status Date / Time codeine Allergy Intermediate Verified 10/06/22 16:04 amoxicillin AdvReac Intermediate Nausea Verified 10/06/22 16:04 General Stated Complaint: GenMedical ADRIANA: 3 Review of Systems All systems reviewed & are unremarkable except as noted in HPI and below Musculoskeletal Musculoskeletal: Reports tingling Neurologic Neurologic: Reports as per HPI and Reports tingling PFSH All Active Problems (Updated 10/06/22 @ 17:22 by Antoinette Templeton NP) Shortness of breath (Acute) Neck pain on left side (Acute) Neuralgia of left upper extremity (Acute) Tingling (Acute) Cervical radiculopathy (Acute) Contusion of left leg (Acute) Gynecomastia, male (Acute) b/l, per CT (Jul 2022).. Possible 2' Methadone, Clnzpm (?). Surg eval (+)/No further action. CKD (chronic kidney disease) stage 2, GFR 60-89 ml/min (Acute) GFR 64-65, with Hx FLORESITA and GFR < 45 Complex medical condition (Acute) Serious electrolyte imbalances, with gynecomastia, possible MEN Dx, CKD and anemia with baseline anxiety and Hx PTSD. History of electrolyte imbalance (Acute) Neck pain on left side (Acute) with shoulder, upper back pain.. torticollis, radiating into left hip/leg Gastritis (Acute) Chest pain (Acute) Anxiety (Chronic) Hypomagnesemia (Acute) Hypocalcemia (Acute) Epigastric abdominal pain (Acute) Encounter for medication administration (Acute) History of anxiety (Acute) Pulmonary nodule 1 cm or greater in diameter (Acute) Therapeutic opioid induced constipation (Acute) Sphincter of Oddi dysfunction (Acute) Abnormal CT scan, kidney (Acute) Intrahepatic bile duct dilation (Acute) Common bile duct dilatation (Acute) Abdominal pain (Acute) Iatrogenic hypocalcemia (Acute) Multiple endocrine neoplasia type I (Chronic) Chronic constipation (Chronic) Primary hyperparathyroidism (Chronic) Depression (Chronic) Hypocalcemia (Chronic) Hypomagnesemia (Chronic) Depression (Chronic) Suicidal ideation (Acute) Elevated parathyroid hormone (Acute) Family history of coronary arteriosclerosis (Chronic) Father of WA at 50, mother had WA at 42 Severe anxiety with panic (Acute) Cellulitis (Acute) Medical History Anxiety Depression Family history of multiple endocrine neoplasia, type 1 Hyperlipidemia Hypocalcemia PTSD (post-traumatic stress disorder) Surgical History H/O parathyroidectomy Family History Mother Anxiety Asthma Depression Sister Anxiety Depression Father Cancer lung & stomach Depression Diabetes Hypertension MEN 1 (multiple endocrine neoplasia) Social History Smoking/Tobacco Use Status: Never Smoking risk assessment performed?: Yes Alcohol Intake: never 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 Adopted: No Caregiver/Support person: No Foster care: No Household members: none Housing: house Number of Children: 0 Communication Needs: None Education Level: high school Do you need help understanding health information?: Never 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 and animals: Yes (Ally) Pets and animals: dog(s) Sexually active: No Do you think of yourself as: straight/heterosexual Current gender identity: male What is your relationship status?: How often do you talk on the phone with friends or family?: twice per week How often do you get together with friends or relatives?: never Do you belong to any clubs or organized social groups?: no Panel score (0-1 are the most socially isolated patients): 0 What type of physical activity do you participate in: walking Duration: 15-30 minutes/day Frequency: 5-6 times per week Maryam/Latter Day: Hindu Special maryam needs: No Seatbelt use: always Helmet use: Yes Helmet use: always Drive 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 local truck 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 Exam Narrative Exam Narrative: Constitutional: Alert and oriented x3. Appears stated age. Overweight body habitus. Head: Normocephalic, patient is wearing a c-collar. Eyes: Pupils PERRL, Red reflex noted, EOM's intact. Eyelids symmetrical without lesions, discharge, or swelling. ENT: Bilateral TM's WNL, External ear normal to inspection, no mastoid TTP, swelling, or erythema, Nasal turbinates WNL, no nasal discharge. Normal dentition, Posterior pharynx WNL, no exudate. Chest: RRR, Normal S1, S2, distal pulses intact. Resp: Lungs clear to auscultation bilaterally, no wheezes, rales, or rhonchi. Abdomen: Soft, non-distended, Normoactive bowel sounds all 4 quads. Musculoskeletal: Normal gait, 5/5 strength to all four extremities. Skin: No suspicious rashes or lesions. Capillary refill less than 2 sec. Neurologic: Cranial nerves II-XII intact. Alert and oriented x 3. Motor: No deficits noted. Sensory: Intact bilaterally all 4 extremities. Reflexes: DTR's intact bilaterally.. Hematologic/Lymphatic: No ecchymosis, no lymphadenopathy. Course Vital Signs Vital signs: Vital Signs Temperature 37.1 C 10/06/22 16:01 Pulse 100 H 10/06/22 16:01 Respiratory Rate 18 10/06/22 16:01 Blood Pressure 124/66 10/06/22 16:01 Pulse Oximetry 97 10/06/22 16:01 Temperature 37.1 C 10/06/22 16:01 Temperature Source Skin 10/06/22 16:01 Pulse 100 H 10/06/22 16:01 Respiratory Rate 18 10/06/22 16:01 Respiratory Effort Normal 10/06/22 16:05 Blood Pressure 124/66 10/06/22 16:01 Blood Pressure Position Sitting 10/06/22 16:01 Pulse Oximetry 97 10/06/22 16:01 Oxygen Delivery Method Room Air 10/06/22 16:01 Oxygen Flow Rate 0 10/06/22 16:01 Pain Level 0 10/06/22 16:01
[2022-10-06 16:43] VITALS: RESP 16
[2022-10-06 16:56] LABS: Abs Immature Grans 0.03 10^3/uL (0.0-0.06); Absolute Basophil Count 0.04 10^3/uL (0.0-0.2); Absolute Eosinophil Count 0.26 10^3/uL (0.0-0.7); Absolute Lymphocyte Count 1.69 10^3/uL (1.2-3.4); Absolute Monocyte Count 0.68 10^3/uL (0.1-0.8); Absolute Neutrophil Count 4.75 10^3/uL (1.2-6.7); Basophils % 0.5; Eosinophils % 3.5; HCT 34.3 % (40.0-50.0); HGB 11.7 g/dL (13.5-17.5); Immature Grans % 0.4; Lymphocytes % 22.7; MCH 30.9 pg (27.0-33.0); MCHC 34.1 % (32.0-36.0); MCV 91 fL (80-95); MPV 10.4 fL (8.0-11.0); Monocytes % 9.1; Neutrophils % 63.8; Platelet Count 281 10^3/uL (130-400); RBC 3.79 10^6/uL (4.36-5.78); RDW 12.1 % (11.8-14.1); RDW-SD 39.8 fL; WBC 7.45 10^3/uL (4.4-10.8)
[2022-10-06 17:12] LABS: ALT 42 U/L (16-63); AST 25 U/L (15-37); Albumin 3.4 g/dL (3.4-5.0); Alkaline Phosphatase 114 U/L (46-116); Anion Gap 2.5 mmol/L (3-11); BUN 17 mg/dL (7-18); Bilirubin, Total 0.3 mg/dL (0.2-1.0); CO2 32.5 mmol/L (21.0-32.0); CREATININE 1.3 mg/dL (0.70-1.30); Calcium 8.6 mg/dL (8.5-10.1); Chloride 102 mmol/L (98-107); Estimated GFR 76.74 (mL/min/1.73m2); Glucose 90 mg/dL (74-106); Potassium 3.9 mmol/L (3.5-5.1); Sodium 137 mmol/L (136-145); Total Protein 7.7 g/dL (6.4-8.2)
== END 2022-10-06 17:29 | disposition home or self-care (01) ==
PROVIDERS: Emergency Provider Registered Nurse Emergency; PCP Family Medicine
DX: R20.2 Paresthesia of skin (principal); E83.52 Hypercalcemia; E66.3 Overweight
CPT/HCPCS: 80053; 99284; 85025

== ENCOUNTER 2022-10-09 17:28 | Emergency (ER) | payer OTHER, SELFPAY ==
[2022-10-09 17:33] VITALS: BP 116/72; PULSE 98; RESP 18; TEMP 36.9; O2SAT 95
--- NOTE | 2022-10-09 17:45 | DI.CT_ITS ---
Exam(s) CT CERVICAL SPINE WO EXAM: CT CERVICAL SPINE WO CLINICAL HISTORY: Cervical radiculopathy. TECHNIQUE: Imaging Protocol: Axial computed tomography images with coronal and sagittal reformatted images were created and reviewed COMPARISON: CT CT HEAD CERVICAL SPINE WO from 10/03/2022 FINDINGS: Bones: No fracture or dislocations are seen. There is mild reversal of the normal cervical lordosis. This may be due to patient positioning or muscle spasm. C2-3: No focal disc herniation, central spinal canal or neural foraminal stenosis. C3-4: No focal disc herniation, central spinal canal or neural foraminal stenosis. C4-5: No focal disc herniation, central spinal canal or neural foraminal stenosis. C5-6: No focal disc herniation, central spinal canal or neural foraminal stenosis. C6-7: No focal disc herniation, central spinal canal or neural foraminal stenosis. C7-T1: No focal disc herniation, central spinal canal or neural foraminal stenosis. Soft Tissues: The soft tissues of the neck are unremarkable. The visualized lung apices are clear. There are scattered calcifications seen adjacent to the thyroid gland. IMPRESSION: 1. No acute fracture or subluxation in the cervical spine. 2. No significant central spinal canal or neural foraminal stenosis is seen in the cervical spine. RADIATION DOSE DELIVERED: 453.82mGy.cm Total DLP DATA REPOSITORY: All CT scans at this facility are submitted to the National Radiology Data Registry (NRDR) Dose Index Registry (DIR) with the [employer] (A[employer]). RADIATION OPTIMIZATION: All CT scans at this facility use at least one of these dose optimization te chniques: automated exposure control; mA and/or kV adjustment per patient size (includes targeted exa ms where dose is matched to clinical indication); or iterative reconstruction.
--- NOTE | 2022-10-09 17:56 | ED.GENADUL_ITS ---
Discharge Plan Disposition Patient Disposition: Home Discharge Details Clinical Impression: Cervical myofascial strain, Cervical radicular pain Primary Care Provider: Brendon Vivar ED Provider: Antoinette Templeton Home Meds and New Rx's Prescriptions: New cyclobenzaprine 10 mg tablet 10 mg PO TID PRN (Reason: muscle spasm) Qty: 10 0RF No Action acetaminophen 325 mg capsule 650 mg PO Q6H PRN fluoxetine 20 mg capsule 60 mg PO DAILY Qty: 270 3RF methadone 10 mg/5 mL solution 110 mg PO QAM prednisone 50 mg tablet 50 mg PO DAILY 7 Days Qty: 7 0RF Patient Comments: not taking clonazepam 1 mg tablet 1 mg PO BID MDD 2mg PRN (Reason: severe anxiety episodes) Qty: 28 0RF Rx Instructions: Continue increased dose for acute anxiety episodes esomeprazole magnesium [Nexium] 20 mg capsule,delayed release(DR/EC) 20 mg PO DAILY Qty: 30 0RF calcium carbonate [Tums] 200 mg calcium (500 mg) tablet,chewable 1,000 mg PO BID Qty: 0 0RF Hold Instructions: Resume on 06/15/22. calcitriol 0.5 mcg capsule 0.5 mcg PO BID Qty: 360 3RF Hold Instructions: Resume on 06/15/22. gabapentin 800 mg tablet 300 mg PO DAILY ibuprofen 200 mg Tablet 600 mg PO PRN PRN magnesium gluconate 27 mg magnesium (500 mg) tablet 27 mg PO BID Qty: 30 0RF sucralfate [Carafate] 1 gram tablet 1 gm PO QACHS Qty: 14 0RF Discharge Instructions Instructions: Cervical Strain (ED) Additional Instructions: Please take the muscle relaxer up to 3 times daily as needed. Continue to wear the collar that was previously given to you. Please keep your MRI appointment. The CT shows no acute changes, no fractures. everything is normal including the disc spaces. Follow up with primary care provider in 3-5 days. Increase oral fluids. Please take Tylenol or Ibuprofen with food every 4-6 hours as needed for pain and swelling. Referrals: Brendon Vivar DO [Primary Care Provider] - 3 days Discharge Data Discharge Date/Time-TO BE ENTERED AT DEPARTURE: 10/09/22 19:41 Medical Decision Making Patient given Flexeril, CT C-spine repeated which is within normal limits. Instructed on using the c-collar as previously instructed and keeping the MRI appointment as previously scheduled. Instructed to follow-up with PCP. This text was generated using [employer] dictation system, please disregard any oddities of phrase or misspellings. Imaging Data Radiologic Study: Imaging: CT Scan Radiologist's impression: Imaging protocol: Computed tomography of the cervical spine without contrast. COMPARISON: CT HEAD CERVICAL SPINE WO 10/03/2022 9:39 PM FINDINGS: Bones/joints: Straightening of the cervical lordosis. Vertebral body heights are maintained. No locked or perched facets. No acute cervical spine fracture. The dens is intact. Atlantoaxial intervals are normal. Disc space heights are normal. Lungs: Lung apices are clear. Thyroid: Small scattered calcifications surrounding the thyroid gland. Soft tissues: Unremarkable. IMPRESSION: 1. No acute cervical spine fracture. 2. Small scattered calcifications surrounding the thyroid gland. Recommend further evaluation with nonemergent thyroid ultrasound. Thank you for allowing us to participate in the care of your patient. Dictated and Authenticated by: Aris Koenig MD [facility] General Mode of arrival: ambulatory . Date/Time Provider Initiated Documentation: 10/09/22 17:32 . Limitations to Documentation: no limitations . Information obtained by: patient, RN notes reviewed and old records reviewed . HPI Narrative: 27-year-old male presents to the ER for the second time in the last 3 days with a chief complaint of neck pain and left arm numbness and tingling. He was seen here on the after a fall from a [address] had negative CT head C and T-spine performed. He was scheduled for an outpatient MRI which she reports he missed his appointment for. He states that he stood up prior to arrival and his whole left side of his body was numb. 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 He is able to move his left lower leg. He has not taken any Tylenol ibuprofen and is not on muscle relaxers at this time. He presents without his c-collar in place. He does have an [place] c-collar at home. He has paraspinous left lateral pain no midline C-spine tenderness with palpation. Denies any loss of bowel or bladder control. Related Data Home Medications Medication Instructions Recorded Confirmed methadone 10 mg/5 mL oral solution 110 mg PO QAM 11/16/21 10/09/22 acetaminophen 325 mg capsule 650 mg PO Q6H PRN 06/07/22 10/09/22 calcitriol 0.5 mcg capsule 0.5 mcg PO BID #360 caps 06/14/22 10/09/22 calcium carbonate 200 mg calcium 1,000 mg PO BID #0 tabs 06/14/22 10/09/22 (500 mg) chewable tablet (Tums) magnesium gluconate 27 mg 27 mg PO BID #30 tabs 07/17/22 10/09/22 magnesium (500 mg) tablet fluoxetine 20 mg capsule 60 mg PO DAILY #270 caps 07/18/22 10/09/22 sucralfate 1 gram tablet (Carafate) 1 gm PO QACHS #14 tabs 09/08/22 10/09/22 gabapentin 800 mg tablet 300 mg PO DAILY 09/19/22 10/09/22 ibuprofen 200 mg tablet 600 mg PO PRN PRN 09/19/22 10/09/22 clonazepam 1 mg tablet 1 mg PO BID PRN severe anxiety 09/24/22 10/09/22 episodes #28 tabs esomeprazole magnesium 20 mg 20 mg PO DAILY #30 caps 09/24/22 10/09/22 capsule,delayed release (Nexium) prednisone 50 mg tablet 50 mg PO DAILY 7 days #7 tabs 09/24/22 10/09/22 cyclobenzaprine 10 mg tablet 10 mg PO TID PRN muscle spasm #10 10/09/22 tabs Previous Rx's Medication Instructions Recorded calcitriol 0.5 mcg capsule 0.5 mcg PO BID #360 caps 06/14/22 calcium carbonate 200 mg calcium 1,000 mg PO BID #0 tabs 06/14/22 (500 mg) chewable tablet (Tums) magnesium gluconate 27 mg 27 mg PO BID #30 tabs 07/17/22 magnesium (500 mg) tablet fluoxetine 20 mg capsule 60 mg PO DAILY #270 caps 07/18/22 sucralfate 1 gram tablet (Carafate) 1 gm PO QACHS #14 tabs 09/08/22 clonazepam 1 mg tablet 1 mg PO BID PRN severe anxiety 09/24/22 episodes #28 tabs esomeprazole magnesium 20 mg 20 mg PO DAILY #30 caps 09/24/22 capsule,delayed release (Nexium) prednisone 50 mg tablet 50 mg PO DAILY 7 days #7 tabs 09/24/22 cyclobenzaprine 10 mg tablet 10 mg PO TID PRN muscle spasm #10 10/09/22 tabs Allergies Allergy/AdvReac Type Severity Reaction Status Date / Time codeine Allergy Intermediate Verified 10/09/22 17:34 amoxicillin AdvReac Intermediate Nausea Verified 10/09/22 17:34 General Stated Complaint: Nk/Back Pain ADRIANA: 4 Review of Systems All systems reviewed & are unremarkable except as noted in HPI and below ENT Ears, Nose, Mouth, and Throat: Reports neck pain Musculoskeletal Musculoskeletal: Reports as per HPI, Reports neck pain, Reports numbness and Reports tingling Neurologic Neurologic: Reports as per HPI, Reports numbness and Reports tingling PFSH All Active Problems (Updated 10/09/22 @ 18:49 by Antoinette Templeton NP) Cervical myofascial strain (Acute) Cervical radicular pain (Acute) Shortness of breath (Acute) Neck pain on left side (Acute) Neuralgia of left upper extremity (Acute) Tingling (Acute) Cervical radiculopathy (Acute) Contusion of left leg (Acute) Gynecomastia, male (Acute) b/l, per CT (Jul 2022).. Possible 2' Methadone, Clnzpm (?). Surg eval (+)/No further action. CKD (chronic kidney disease) stage 2, GFR 60-89 ml/min (Acute) GFR 64-65, with Hx FLORESITA and GFR < 45 Complex medical condition (Chronic) Serious electrolyte imbalances, with gynecomastia, possible MEN Dx, CKD and anemia with baseline anxiety and Hx PTSD. History of electrolyte imbalance (Acute) Neck pain on left side (Acute) with shoulder, upper back pain.. torticollis, radiating into left hip/leg Encounter for medication administration (Acute) History of anxiety (Acute) Pulmonary nodule 1 cm or greater in diameter (Chronic) Therapeutic opioid induced constipation (Acute) Sphincter of Oddi dysfunction (Chronic) Abnormal CT scan, kidney (Acute) Intrahepatic bile duct dilation (Acute) Common bile duct dilatation (Acute) Abdominal pain (Acute) Iatrogenic hypocalcemia (Acute) Multiple endocrine neoplasia type I (Chronic) Chronic constipation (Chronic) Primary hyperparathyroidism (Chronic) Depression (Chronic) Hypocalcemia (Chronic) Hypomagnesemia (Chronic) Depression (Chronic) Suicidal ideation (Acute) Elevated parathyroid hormone (Acute) Family history of coronary arteriosclerosis (Chronic) Father of [place] at 50, mother had [place] at 42 Severe anxiety with panic (Chronic) Cellulitis (Acute) Medical History Anxiety Depression Family history of multiple endocrine neoplasia, type 1 Hyperlipidemia Hypocalcemia PTSD (post-traumatic stress disorder) Surgical History H/O parathyroidectomy Family History Mother Anxiety Asthma Depression Sister Anxiety Depression Father Cancer lung & stomach Depression Diabetes Hypertension MEN 1 (multiple endocrine neoplasia) Social History Smoking/Tobacco Use Status: Never Smoking risk assessment performed?: Yes Alcohol Intake: never 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 Adopted: No Caregiver/Support person: No Foster care: No Household members: none Housing: house Number of Children: 0 Communication Needs: None Education Level: high school Do you need help understanding health information?: Never 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 and animals: Yes (Ally) Pets and animals: dog(s) Sexually active: No Do you think of yourself as: straight/heterosexual Current gender identity: male What is your relationship status?: How often do you talk on the phone with friends or family?: twice per week How often do you get together with friends or relatives?: never Do you belong to any clubs or organized social groups?: no Panel score (0-1 are the most socially isolated patients): 0 What type of physical activity do you participate in: walking Duration: 15-30 minutes/day Frequency: 5-6 times per week Maryam/Zoroastrianism: Voodoo Special maryam needs: No Seatbelt use: always Helmet use: Yes Helmet use: always Drive 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 straight truck 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 Exam Narrative Exam Narrative: Constitutional: Alert and oriented x3. Appears stated age. Normal body habitus. Head: Normocephalic, no trauma. Eyes: Pupils PERRL, Red reflex noted, EOM's intact. Eyelids symmetrical without lesions, discharge, or swelling. Chest: RRR, Normal S1, S2, distal pulses intact. Resp: Lungs clear to auscultation bilaterally, no wheezes, rales, or rhonchi. Abdomen: Soft, non-distended, Normoactive bowel sounds all 4 quads. Musculoskeletal: Normal gait, 5/5 strength to all four extremities. Patient is holding his neck to the right, increased pain with rotation to the left side. Skin: No suspicious rashes or lesions. Capillary refill less than 2 sec. Neurologic: Cranial nerves II-XII intact. Alert and oriented x 3. Motor: No deficits noted. Sensory: Intact bilaterally all 4 extremities. Reflexes: DTR's intact bilaterally.. Hematologic/Lymphatic: No ecchymosis, no lymphadenopathy. Course Vital Signs Vital signs: Vital Signs Temperature 36.9 C 10/09/22 17:33 Pulse 98 H 10/09/22 17:33 Respiratory Rate 18 10/09/22 17:33 Blood Pressure 116/72 10/09/22 17:33 Pulse Oximetry 95 10/09/22 17:33 Temperature 36.9 C 10/09/22 17:33 Temperature Source Temporal Artery Scan 10/09/22 17:33 Pulse 98 H 10/09/22 17:33 Respiratory Rate 18 10/09/22 17:33 Respiratory Effort Normal, Non-Labored 10/09/22 17:33 Blood Pressure 116/72 10/09/22 17:33 Pulse Oximetry 95 10/09/22 17:33
[2022-10-09] MEDS: Ibuprofen 600 MG TAB PO (18:21)
[2022-10-09] MEDS: Cyclobenzaprine 10 MG TAB PO (18:21)
--- NOTE | 2022-10-09 18:44 | DI.VRAD_ITS ---
PROCEDURE INFORMATION: Exam: CT Cervical Spine Without Contrast Exam date and time: 10/09/2022 6:26 PM Age: 27 years old Clinical indication: Cervical region; Patient HX: Cervical radiculopathy TECHNIQUE: Imaging protocol: Computed tomography of the cervical spine without contrast. COMPARISON: CT HEAD CERVICAL SPINE WO 10/03/2022 9:39 PM FINDINGS: Bones/joints: Straightening of the cervical lordosis. Vertebral body heights are maintained. No locked or perched facets. No acute cervical spine fracture. The dens is intact. Atlantoaxial intervals are normal. Disc space heights are normal. Lungs: Lung apices are clear. Thyroid: Small scattered calcifications surrounding the thyroid gland. Soft tissues: Unremarkable. IMPRESSION: 1. No acute cervical spine fracture. 2. Small scattered calcifications surrounding the thyroid gland. Recommend further evaluation with nonemergent thyroid ultrasound. Dictated and Authenticated by: Aris Koenig MD. Ordering:CHRYSTAL Curry MD
[2022-10-09] MEDS: Cyclobenzaprine 10 MG TAB, 3 TABS/BTL PO (19:38)
== END 2022-10-09 19:41 | disposition home or self-care (01) ==
PROVIDERS: Emergency Provider Registered Nurse Emergency; PCP Family Medicine
DX: S16.1XXA Strain of muscle, fascia and tendon at neck level, initial encounter (principal); X58.XXXA Exposure to other specified factors, initial encounter
CPT/HCPCS: 99284; 72125

== ENCOUNTER 2022-10-18 06:04 | Emergency (ER) | payer MEDICAID, SELFPAY ==
[2022-10-18] VITALS (10 sets, daily range): BP systolic 133; BP diastolic 87; PULSE 68–88; RESP 9–18; TEMP 36.8; O2SAT 98
--- NOTE | 2022-10-18 06:15 | DI.MRI_ITS ---
Exam(s) MR CERVICAL SPINE WO EXAM: MR CERVICAL SPINE WO CLINICAL HISTORY: left arm numbness and tingling TECHNIQUE: Multiplanar multisequence MRI of the cervical spine was performed without intravenous con trast. COMPARISON: CT CT CERVICAL SPINE WO from 10/09/2022 FINDINGS: CERVICOMEDULLARY JUNCTION: Intact with no evidence of cerebellar tonsillar ectopia. No obvious abnor mality of the odontoid process. No evidence of Chiari 1 malformation. CERVICAL SPINAL CORD: There is no abnormal signal in the cervical spinal cord and no evidence of foca l cord atrophy nor focal cord swelling. OSSEOUS:There are no cervical fractures evident. No significant osseous lesions in the cervical vert ebrae. INDIVIDUAL LEVELS: C2-3: No disc herniation nor central canal stenosis. No foraminal stenosis. No facet arthropathy. C3-4: No disc herniation nor central canal stenosis.No facet arthropathy. No foraminal stenosis. C4-5: No disc herniation nor central canal stenosis.No facet arthropathy. No foraminal stenosis C5-6: No disc herniation or canal stenosis. No facet arthropathy. No foraminal stenosis. C6-7: No disc herniation nor central canal stenosis. No facet arthropathy. No foraminal stenosis. C7-T1: No disc herniation nor central canal stenosis. No facet arthropathy.No foraminal stenosis. IMPRESSION: 1. No significant findings on this MRI scan of the cervical spine. 2. 3. DATA REPOSITORY:
[2022-10-18 06:27] LABS: Abs Immature Grans 0.03 10^3/uL (0.0-0.06); Absolute Basophil Count 0.04 10^3/uL (0.0-0.2); Absolute Eosinophil Count 0.31 10^3/uL (0.0-0.7); Absolute Lymphocyte Count 2.86 10^3/uL (1.2-3.4); Absolute Monocyte Count 0.96 10^3/uL (0.1-0.8); Absolute Neutrophil Count 3.53 10^3/uL (1.2-6.7); Basophils % 0.5; HCT 35.6 % (40.0-50.0); HGB 11.9 g/dL (13.5-17.5); Immature Grans % 0.4; MCH 30.6 pg (27.0-33.0); MCHC 33.4 % (32.0-36.0); MCV 92 fL (80-95); MPV 10.5 fL (8.0-11.0); Monocytes % 12.4; Neutrophils % 45.7; Platelet Count 258 10^3/uL (130-400); RBC 3.89 10^6/uL (4.36-5.78); RDW 11.9 % (11.8-14.1); RDW-SD 39.8 fL; WBC 7.73 10^3/uL (4.4-10.8)
--- NOTE | 2022-10-18 06:27 | W.ED.GENAD ---
Discharge Plan Discharge Details Chief Complaint: Recheck Primary Care Provider: Brendon Vivar ED Provider: Richy Eagle Home Meds and New Rx's Prescriptions: No Action acetaminophen 325 mg capsule 650 mg PO Q6H PRN fluoxetine 20 mg capsule 60 mg PO DAILY Qty: 270 3RF clonazepam 1 mg tablet 1 mg PO BID MDD 2mg PRN (Reason: severe anxiety episodes) Qty: 28 0RF Rx Instructions: Continue increased dose for acute anxiety episodes methadone 10 mg/5 mL solution 110 mg PO QAM esomeprazole magnesium [Nexium] 20 mg capsule,delayed release(DR/EC) 20 mg PO DAILY Qty: 30 0RF calcium carbonate [Tums] 200 mg calcium (500 mg) tablet,chewable 1,000 mg PO BID Qty: 0 0RF Hold Instructions: Resume on 06/15/22. calcitriol 0.5 mcg capsule 0.5 mcg PO BID Qty: 360 3RF Hold Instructions: Resume on 06/15/22. gabapentin 800 mg tablet 300 mg PO DAILY ibuprofen 200 mg Tablet 600 mg PO PRN PRN magnesium gluconate 27 mg magnesium (500 mg) tablet 27 mg PO BID Qty: 30 0RF cyclobenzaprine 10 mg tablet 10 mg PO TID PRN (Reason: muscle spasm) Qty: 10 0RF Medical Decision Making This is a 26-year-old male with a past medical history significant for anxiety, depression, who presents today for evaluation of cough.? High cholesterol, men type I, multiple electrolyte abnormalities with subsequent parathyroidectomy on 03/26/2022 at [facility], PTSD, presents today for evaluation of left hand tingling and spasms. Patient was here on 10/03 after falling off a high ladder. He hit his head and neck. CT imaging was negative, however at that time it was concern for potential cervical spine injury or irritation. I requested that the patient stay for MRI, he left against our recommendations. Unfortunately since then he has had persistent tingling in his left hand neck and arm, as well as intermittent weakness as well. He did not follow-up and get the MRI as requested afterwards. He denies any new fall or trauma. No headache. He states he has been taking his home medications as directed. No other complaints at this time. No other modifying factors. Exam demonstrates weakness on the left upper extremity compared to the right. Lower extremities appear relatively equal in strength. 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 Concern for potential cervical spine injury. The patient did not get the previously recommended MRI. We will get that this morning, evaluate for electrolyte concerns, monitor closely and reassess. HPI General Date/Time Provider Initiated Documentation: 10/18/22 06:11. HPI Narrative: This is a 26-year-old male with a past medical history significant for anxiety, depression, who presents today for evaluation of cough.? High cholesterol, men type I, multiple electrolyte abnormalities with subsequent parathyroidectomy on 03/26/2022 at [facility], PTSD, presents today for evaluation of left hand tingling and spasms. Patient was here on 10/03 after falling off a high ladder. He hit his head and neck. CT imaging was negative, however at that time it was concern for potential cervical spine injury or irritation. I requested that the patient stay for MRI, he left against our recommendations. Unfortunately since then he has had persistent tingling in his left hand neck and arm, as well as intermittent weakness as well. He did not follow-up and get the MRI as requested afterwards. He denies any new fall or trauma. No headache. He states he has been taking his home medications as directed. No other complaints at this time. No other modifying factors. Related Data Home Medications Medication Instructions Recorded Confirmed methadone 10 mg/5 mL oral solution 110 mg PO QAM 11/16/21 10/09/22 acetaminophen 325 mg capsule 650 mg PO Q6H PRN 06/07/22 10/09/22 calcitriol 0.5 mcg capsule 0.5 mcg PO BID #360 caps 06/14/22 10/09/22 calcium carbonate 200 mg calcium 1,000 mg PO BID #0 tabs 06/14/22 10/09/22 (500 mg) chewable tablet (Tums) magnesium gluconate 27 mg 27 mg PO BID #30 tabs 07/17/22 10/09/22 magnesium (500 mg) tablet fluoxetine 20 mg capsule 60 mg PO DAILY #270 caps 07/18/22 10/09/22 gabapentin 800 mg tablet 300 mg PO DAILY 09/19/22 10/09/22 ibuprofen 200 mg tablet 600 mg PO PRN PRN 09/19/22 10/09/22 esomeprazole magnesium 20 mg 20 mg PO DAILY #30 caps 09/24/22 10/09/22 capsule,delayed release (Nexium) cyclobenzaprine 10 mg tablet 10 mg PO TID PRN muscle spasm #10 10/09/22 tabs clonazepam 1 mg tablet 1 mg PO BID PRN severe anxiety 10/11/22 10/11/22 episodes #28 tabs Previous Rx's Medication Instructions Recorded calcitriol 0.5 mcg capsule 0.5 mcg PO BID #360 caps 06/14/22 calcium carbonate 200 mg calcium 1,000 mg PO BID #0 tabs 06/14/22 (500 mg) chewable tablet (Tums) magnesium gluconate 27 mg 27 mg PO BID #30 tabs 07/17/22 magnesium (500 mg) tablet fluoxetine 20 mg capsule 60 mg PO DAILY #270 caps 07/18/22 esomeprazole magnesium 20 mg 20 mg PO DAILY #30 caps 09/24/22 capsule,delayed release (Nexium) cyclobenzaprine 10 mg tablet 10 mg PO TID PRN muscle spasm #10 10/09/22 tabs clonazepam 1 mg tablet 1 mg PO BID PRN severe anxiety 10/11/22 episodes #28 tabs Allergies Allergy/AdvReac Type Severity Reaction Status Date / Time codeine Allergy Intermediate Verified 10/11/22 10:20 amoxicillin AdvReac Intermediate Nausea Verified 10/11/22 10:20 General Stated Complaint: Recheck ADRIANA: 3 Review of Systems All systems reviewed & are unremarkable except as noted in HPI and below PFSH All Active Problems C7 radiculopathy (Acute) Cervical myofascial strain (Acute) Cervical radicular pain (Acute) Shortness of breath (Acute) Neck pain on left side (Acute) Neuralgia of left upper extremity (Acute) Tingling (Acute) Cervical radiculopathy (Acute) Contusion of left leg (Acute) Gynecomastia, male (Acute) b/l, per CT (Jul 2022).. Possible 2' Methadone, Clnzpm (?). Surg eval (+)/No further action. CKD (chronic kidney disease) stage 2, GFR 60-89 ml/min (Acute) GFR 64-65, with Hx FLORESITA and GFR < 45 Complex medical condition (Chronic) Serious electrolyte imbalances, with gynecomastia, possible MEN Dx, CKD and anemia with baseline anxiety and Hx PTSD. History of electrolyte imbalance (Acute) Neck pain on left side (Acute) with shoulder, upper back pain.. torticollis, radiating into left hip/leg Pulmonary nodule 1 cm or greater in diameter (Chronic) Therapeutic opioid induced constipation (Acute) Sphincter of Oddi dysfunction (Chronic) Abnormal CT scan, kidney (Acute) Intrahepatic bile duct dilation (Acute) Common bile duct dilatation (Acute) Abdominal pain (Acute) Iatrogenic hypocalcemia (Acute) Multiple endocrine neoplasia type I (Chronic) Chronic constipation (Chronic) Primary hyperparathyroidism (Chronic) Depression (Chronic) Hypocalcemia (Chronic) Hypomagnesemia (Chronic) Depression (Chronic) Suicidal ideation (Acute) Elevated parathyroid hormone (Acute) Family history of coronary arteriosclerosis (Chronic) Father of [place] at 50, mother had NV at 42 Severe anxiety with panic (Chronic) Cellulitis (Acute) Medical History Anxiety Depression Family history of multiple endocrine neoplasia, type 1 Hyperlipidemia Hypocalcemia PTSD (post-traumatic stress disorder) Surgical History H/O parathyroidectomy Family History Mother Anxiety Asthma Depression Sister Anxiety Depression Father Cancer lung & stomach Depression Diabetes Hypertension MEN 1 (multiple endocrine neoplasia) Social History Smoking/Tobacco Use Status: Never Smoking risk assessment performed?: Yes Alcohol Intake: never 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 Adopted: No Caregiver/Support person: No Foster care: No Household members: none Housing: house Number of Children: 0 Communication Needs: None Education Level: high school Do you need help understanding health information?: Never 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 and animals: Yes (Ally) Pets and animals: dog(s) Sexually active: No Do you think of yourself as: straight/heterosexual Current gender identity: male What is your relationship status?: How often do you talk on the phone with friends or family?: twice per week How often do you get together with friends or relatives?: never Do you belong to any clubs or organized social groups?: no Panel score (0-1 are the most socially isolated patients): 0 What type of physical activity do you participate in: walking Duration: 15-30 minutes/day Frequency: 5-6 times per week Maryam/Gnosticism: Mandaeism Special maryam needs: No Seatbelt use: always Helmet use: Yes Helmet use: always Drive 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 tank 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 Exam Narrative Exam Narrative: 1.Const: Well-nourished, Well-developed, appearing stated age 2.Eyes: PERRL, no conjunctival injection, and symmetrical lids. 3.ENT: Atraumatic external nose and ears. Moist MM. Neck: Symmetric, trachea midline, No thyromegaly. 4.CVS: +S1/S2, No murmurs or gallops. Peripheral pulses 2+ and equal in all extremities. Brisk capillary refill in all extremities. 5.RESP: Unlabored respiratory effort. Clear to auscultation bilaterally. No wheezes rales or rhonchi 6.GI: Soft, Nontender/Nondistended, No hepatosplenomegaly. No guarding or rebound. 7.MSK: Normocephalic/Atraumatic, Extremities w/o deformity or ttp No cyanosis or clubbing, Normal movement of all extremities. No midline cervical thoracic or lumbar spine tenderness. Left upper extremity demonstrates intact institutional asset manager strength and movement, however it is somewhat weaker compared to the right. Diminished strength in all planes of movement. Diminished institutional asset manager strength. Sensation present in all fingers. 8.Skin: Warm, Dry. No rashes or lesions. 9.Neuro: pipe and boiler covers supervisor II-XII grossly intact. Sensation grossly intact, no focal neurologic deficits. 10.Psych: (AAO) x3. Appropriate mood and affect Course Vital Signs Vital signs: Vital Signs Temperature 36.8 C 10/18/22 06:10 Pulse 88 10/18/22 06:10 Respiratory Rate 18 10/18/22 06:10 Blood Pressure 133/87 10/18/22 06:10 Pulse Oximetry 98 10/18/22 06:10 Temperature 36.8 C 10/18/22 06:10 Temperature Source Oral 10/18/22 06:10 Pulse 88 10/18/22 06:10 Respiratory Rate 18 10/18/22 06:10 Blood Pressure 133/87 10/18/22 06:10 Blood Pressure Position Sitting 10/18/22 06:10 Pulse Oximetry 98 10/18/22 06:10 Oxygen Delivery Method Room Air 10/18/22 06:10 Oxygen Flow Rate 0 10/18/22 06:10 Pain Level 4 10/18/22 06:10
[2022-10-18 06:57] LABS: ALT 67 U/L (16-63); AST 33 U/L (15-37); Albumin 3.5 g/dL (3.4-5.0); Alkaline Phosphatase 116 U/L (46-116); Anion Gap 4.6 mmol/L (3-11); BUN 16 mg/dL (7-18); Bilirubin, Total 0.2 mg/dL (0.2-1.0); CO2 33.4 mmol/L (21.0-32.0); CREATININE 1.5 mg/dL (0.70-1.30); Calcium 9.5 mg/dL (8.5-10.1); Chloride 100 mmol/L (98-107); Estimated GFR 64.23 (mL/min/1.73m2); Glucose 101 mg/dL (74-106); Potassium 3.8 mmol/L (3.5-5.1); Sodium 138 mmol/L (136-145); Total Protein 7.4 g/dL (6.4-8.2)
--- NOTE | 2022-10-18 10:10 | W.EDPROG ---
Date of service: 10/18/22 Time of Service: 10:10 Medical Decision Making Patient resting comfortably no acute distress. MRI unremarkable. Sign Out Sign Out Data: Sign Out Comment: Follow-up on MRI and labs for electrolyte abnormality or cervical spine injury Last updated by Richy Eagle DO at 10/18/22 07:09 Discharge Plan Disposition Patient Disposition: Home Condition: Improving Discharge Details Chief Complaint: Recheck Clinical Impression: Paresthesia Primary Care Provider: Brendon Vivar ED Provider: Ajay Kennedy Home Meds and New Rx's Prescriptions: No Action acetaminophen 325 mg capsule 650 mg PO Q6H PRN fluoxetine 20 mg capsule 60 mg PO DAILY Qty: 270 3RF clonazepam 1 mg tablet 1 mg PO BID MDD 2mg PRN (Reason: severe anxiety episodes) Qty: 28 0RF Rx Instructions: Continue increased dose for acute anxiety episodes methadone 10 mg/5 mL solution 110 mg PO QAM esomeprazole magnesium [Nexium] 20 mg capsule,delayed release(DR/EC) 20 mg PO DAILY Qty: 30 0RF calcium carbonate [Tums] 200 mg calcium (500 mg) tablet,chewable 1,000 mg PO BID Qty: 0 0RF Hold Instructions: Resume on 06/15/22. calcitriol 0.5 mcg capsule 0.5 mcg PO BID Qty: 360 3RF Hold Instructions: Resume on 06/15/22. gabapentin 800 mg tablet 300 mg PO DAILY ibuprofen 200 mg Tablet 600 mg PO PRN PRN magnesium gluconate 27 mg magnesium (500 mg) tablet 27 mg PO BID Qty: 30 0RF cyclobenzaprine 10 mg tablet 10 mg PO TID PRN (Reason: muscle spasm) Qty: 10 0RF Discharge Instructions Instructions: Cervical Radiculopathy (ED) Additional Instructions: Please follow with your primary care physician.
== END 2022-10-18 10:24 | disposition home or self-care (01) ==
PROVIDERS: Student in an Organized Health Care Education/Training Program; Emergency Provider Emergency Medicine; PCP Family Medicine
DX: R20.2 Paresthesia of skin (principal); F32.A Depression, unspecified; F41.9 Anxiety disorder, unspecified
CPT/HCPCS: 36415; 80053; 99284; 72141; 83735; 85025; 99283

== ENCOUNTER 2022-10-21 18:53 | Emergency (ER) | payer OTHER, SELFPAY ==
[2022-10-21 19:00] VITALS: BP 130/109; PULSE 115; RESP 22; TEMP 37; O2SAT 97
--- NOTE | 2022-10-21 19:00 | RT.EKG_ITS ---
APPROVED REPORT Exam: Resting ECG Reason for Exam: CHEST PRESSURE Patient Location: E HR:106 bpm ECG Measurements Heart Rate 106 AXIS WV 171 P 38 QRSd 92 QRS 63 QT 336 T 2 QTc 446 Conclusion Sinus tachycardia...rate> 99 sinus tachycardia, normal axis, normal intervals, non ischemic
[2022-10-21 19:26] VITALS: RESP 22
--- NOTE | 2022-10-21 19:51 | ED.GENADUL_ITS ---
Discharge Plan Disposition Patient Disposition: Eloped Condition: Stable Discharge Details Chief Complaint: GenMedical Clinical Impression: Neck pain Primary Care Provider: Brendon Vivar ED Provider: Ajay Kennedy Home Meds and New Rx's Prescriptions: No Action acetaminophen 325 mg capsule 650 mg PO Q6H PRN fluoxetine 20 mg capsule 60 mg PO DAILY Qty: 270 3RF clonazepam 1 mg tablet 1 mg PO BID MDD 2mg PRN (Reason: severe anxiety episodes) Qty: 28 0RF Rx Instructions: Continue increased dose for acute anxiety episodes methadone 10 mg/5 mL solution 110 mg PO QAM esomeprazole magnesium [Nexium] 20 mg capsule,delayed release(DR/EC) 20 mg PO DAILY Qty: 30 0RF calcium carbonate [Tums] 200 mg calcium (500 mg) tablet,chewable 1,000 mg PO BID Qty: 0 0RF Hold Instructions: Resume on 06/15/22. calcitriol 0.5 mcg capsule 0.5 mcg PO BID Qty: 360 3RF Hold Instructions: Resume on 06/15/22. gabapentin 800 mg tablet 300 mg PO DAILY ibuprofen 200 mg Tablet 600 mg PO PRN PRN magnesium gluconate 27 mg magnesium (500 mg) tablet 27 mg PO BID Qty: 30 0RF cyclobenzaprine 10 mg tablet 10 mg PO TID PRN (Reason: muscle spasm) Qty: 10 0RF Medical Decision Making 27-year-old male remote fall from ladder, recent negative MRI of cervical spine presents with left neck discomfort rating to shoulder and left upper extremity intermittent paresthesia of left upper extremity left lower extremity self resolving. No new trauma. Shoulder discomfort radiating into left upper chest. No shortness of breath. Patient is afebrile nontoxic hypertense on arrival likely related to discomfort. Sinus tachycardia on EKG normal sinus rhythm normal axis normal intervals nonischemic. Point tenderness posterior lateral cervical soft tissue and trapezius no midline cervical tenderness. Range of motion of neck intact. Neurologic examination unremarkable. Likely component of musculoskeletal neck pain consider mild torticollis versus cervical radiculopathy versus posterior chain spasm low suspicion for spinal cord impingement or ACS. Low suspicion for CVA/TIA. Will trial anti-inflammatory and muscle relaxant. Home with close follow-up 20: 30 patient left before medication. HPI General Date/Time Provider Initiated Documentation: 10/21/22 19:31 . HPI Narrative: 27-year-old male history of remote injury fall from ladder presents with left posterior lateral neck discomfort radiating into shoulder and arm associated with intermittent paresthesia of arm and leg, recent MRI. No shortness of breath nausea vomiting or presyncope. Related Data Home Medications Medication Instructions Recorded Confirmed methadone 10 mg/5 mL oral solution 110 mg PO QAM 11/16/21 10/21/22 acetaminophen 325 mg capsule 650 mg PO Q6H PRN 06/07/22 10/21/22 calcitriol 0.5 mcg capsule 0.5 mcg PO BID #360 caps 06/14/22 10/21/22 calcium carbonate 200 mg calcium 1,000 mg PO BID #0 tabs 06/14/22 10/21/22 (500 mg) chewable tablet (Tums) magnesium gluconate 27 mg 27 mg PO BID #30 tabs 07/17/22 10/21/22 magnesium (500 mg) tablet fluoxetine 20 mg capsule 60 mg PO DAILY #270 caps 07/18/22 10/21/22 gabapentin 800 mg tablet 300 mg PO DAILY 09/19/22 10/21/22 ibuprofen 200 mg tablet 600 mg PO PRN PRN 09/19/22 10/21/22 esomeprazole magnesium 20 mg 20 mg PO DAILY #30 caps 09/24/22 10/21/22 capsule,delayed release (Nexium) cyclobenzaprine 10 mg tablet 10 mg PO TID PRN muscle spasm #10 10/09/22 10/21/22 tabs clonazepam 1 mg tablet 1 mg PO BID PRN severe anxiety 10/11/22 10/21/22 episodes #28 tabs Previous Rx's Medication Instructions Recorded calcitriol 0.5 mcg capsule 0.5 mcg PO BID #360 caps 06/14/22 calcium carbonate 200 mg calcium 1,000 mg PO BID #0 tabs 06/14/22 (500 mg) chewable tablet (Tums) magnesium gluconate 27 mg 27 mg PO BID #30 tabs 07/17/22 magnesium (500 mg) tablet fluoxetine 20 mg capsule 60 mg PO DAILY #270 caps 07/18/22 esomeprazole magnesium 20 mg 20 mg PO DAILY #30 caps 09/24/22 capsule,delayed release (Nexium) cyclobenzaprine 10 mg tablet 10 mg PO TID PRN muscle spasm #10 10/09/22 tabs clonazepam 1 mg tablet 1 mg PO BID PRN severe anxiety 10/11/22 episodes #28 tabs Allergies Allergy/AdvReac Type Severity Reaction Status Date / Time codeine Allergy Intermediate Verified 10/21/22 18:59 amoxicillin AdvReac Intermediate Nausea Verified 10/21/22 18:59 General Stated Complaint: GenMedical ADRIANA: 3 Review of Systems Narrative: Review of Systems Constitutional: negative Eyes: negative ENT: negative Cardiovascular: negative Respiratory: negative Gastrointestinal: negative : negative Musculoskeletal: Neck discomfort, arm paresthesia, leg paresthesia Skin: negative Neurologic: negative Psych: negative PFSH All Active Problems (Updated 10/21/22 @ 20:31 by Ajay Kennedy MD) Paresthesia (Acute) Neck pain (Acute) C7 radiculopathy (Acute) Cervical myofascial strain (Acute) Cervical radicular pain (Acute) Shortness of breath (Acute) Neck pain on left side (Acute) Neuralgia of left upper extremity (Acute) Tingling (Acute) Cervical radiculopathy (Acute) Contusion of left leg (Acute) Gynecomastia, male (Acute) b/l, per CT (Jul 2022).. Possible 2' Methadone, Clnzpm (?). Surg eval (+)/No further action. CKD (chronic kidney disease) stage 2, GFR 60-89 ml/min (Acute) GFR 64-65, with Hx FLORESITA and GFR < 45 Complex medical condition (Chronic) Serious electrolyte imbalances, with gynecomastia, possible MEN Dx, CKD and anemia with baseline anxiety and Hx PTSD. History of electrolyte imbalance (Acute) Neck pain on left side (Acute) with shoulder, upper back pain.. torticollis, radiating into left hip/leg Pulmonary nodule 1 cm or greater in diameter (Chronic) Therapeutic opioid induced constipation (Acute) Sphincter of Oddi dysfunction (Chronic) Abnormal CT scan, kidney (Acute) Intrahepatic bile duct dilation (Acute) Common bile duct dilatation (Acute) Abdominal pain (Acute) Iatrogenic hypocalcemia (Acute) Multiple endocrine neoplasia type I (Chronic) Chronic constipation (Chronic) Primary hyperparathyroidism (Chronic) Depression (Chronic) Hypocalcemia (Chronic) Hypomagnesemia (Chronic) Depression (Chronic) Suicidal ideation (Acute) Elevated parathyroid hormone (Acute) Family history of coronary arteriosclerosis (Chronic) Father of [place] at 50, mother had [place] at 42 Severe anxiety with panic (Chronic) Cellulitis (Acute) Medical History Anxiety Depression Family history of multiple endocrine neoplasia, type 1 Hyperlipidemia Hypocalcemia PTSD (post-traumatic stress disorder) Surgical History H/O parathyroidectomy Family History Mother Anxiety Asthma Depression Sister Anxiety Depression Father Cancer lung & stomach Depression Diabetes Hypertension MEN 1 (multiple endocrine neoplasia) Social History Smoking/Tobacco Use Status: Never Smoking risk assessment performed?: Yes Alcohol Intake: never 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 Adopted: No Caregiver/Support person: No Foster care: No Household members: none Housing: house Number of Children: 0 Communication Needs: None Education Level: high school Do you need help understanding health information?: Never 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 and animals: Yes (Ally) Pets and animals: dog(s) Sexually active: No Do you think of yourself as: straight/heterosexual Current gender identity: male What is your relationship status?: How often do you talk on the phone with friends or family?: twice per week How often do you get together with friends or relatives?: never Do you belong to any clubs or organized social groups?: no Panel score (0-1 are the most socially isolated patients): 0 What type of physical activity do you participate in: walking Duration: 15-30 minutes/day Frequency: 5-6 times per week Maryam/Roman Catholic: Yarsani Special maryam needs: No Seatbelt use: always Helmet use: Yes Helmet use: always Drive 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 Exam Narrative Exam Narrative: Physical Examination General: alert, awake, cooperative, resting comfortably, no acute distress HEENT: normocephalic, atraumatic; PERRL, EOM intact, conjunctiva normal; no nasal discharge; moist mucous membranes, oral and pharyngeal mucosa normal, tolerating secretions Neck: supple, trachea midline; full ROM; point tenderness along left posterior lateral paraspinal region into the trapezius Chest: normal to inspection Respiratory: normal respiratory effort, speaking in full sentences, clear to auscultation, no wheezing, rales or rhonchi Cardiac: regular rate, regular rhythm, S1S2 intact, no murmurs rubs or gallops GI: abdomen soft, non-tender, non-distended; no palpable mass or hepatosplenomegaly Skin: no lesions, rashes or trauma appreciated Neuro: AAOx3, normal speech, moving all extremities; cranial nerves intact, 5 out of 5 strength upper and lower extremities ambulatory without assistance, no ataxia Extremities: No evidence of trauma Psych: Appropriate mood and affect Course Vital Signs Vital signs: Vital Signs Temperature 37.0 C 10/21/22 19:00 Pulse 115 H 10/21/22 19:00 Respiratory Rate 22 10/21/22 19:00 Blood Pressure 130/109 H 10/21/22 19:00 Pulse Oximetry 97 10/21/22 19:00 Temperature 37.0 C 10/21/22 19:00 Temperature Source Oral 10/21/22 19:00 Pulse 115 H 10/21/22 19:00 Respiratory Rate 22 10/21/22 19:26 Respiratory Effort Normal, Non-Labored 10/21/22 19:26 Respiratory Depth Normal 10/21/22 19:26 Respiratory Pattern Normal 10/21/22 19:26 Blood Pressure 130/109 H 10/21/22 19:00 Blood Pressure Position Sitting 10/21/22 19:00 Pulse Oximetry 97 10/21/22 19:00 Oxygen Delivery Method Room Air 10/21/22 19:00 Oxygen Flow Rate 0 10/21/22 19:00 Pain Level 6 10/21/22 19:00
--- NOTE | 2022-10-21 19:52 | NUR.NOTE ---
Pt placed on care management referral for physical therapy for neck pain:
== END 2022-10-21 21:03 | disposition left against medical advice (07) ==
PROVIDERS: Emergency Provider Emergency Medicine; PCP Family Medicine
DX: M54.2 Cervicalgia (principal); W11.XXXS Fall on and from ladder, sequela; R20.2 Paresthesia of skin; Z53.29 Procedure and treatment not carried out because of patient's decision for other reasons
CPT/HCPCS: 93005; 99283; 93010; 99282

== ENCOUNTER 2022-10-22 12:32 | Outpatient (CLI) | payer MEDICAID, SELFPAY ==
--- NOTE | 2022-10-22 08:55 | DI.US_ITS ---
Exam(s) US SOFT TISSUE EXTREMITY EXAM: US SOFT TISSUE EXTREMITY CLINICAL HISTORY: PAIN IN LT ARM, M79.622, ASSESS AREA OF TENDERNESS FOR LUMP/MASS. TECHNIQUE: Ultrasound was performed using standard protocol. COMPARISON: US US LOWER EXTREMITY VENOUS LT from 09/23/2022 FINDINGS: Images are submitted for interpretation from an area clinical concern at the mid lateral aspect left upper extremity. Images reveal no evidence of significant mass nor abnormal collection. There does not appear to be tissue edema. IMPRESSION: No significant focal ultrasound findings on these images. DATA REPOSITORY:
== END 2022-10-22 12:52 ==
PROVIDERS: PCP Family Medicine; Visit Provider Nurse Practitioner Family
DX: M79.622 Pain in left upper arm (principal)
CPT/HCPCS: 76881

== ENCOUNTER 2022-10-25 22:12 | Emergency (ER) | payer OTHER, SELFPAY ==
[2022-10-25 22:16] VITALS: BP 143/78; PULSE 89; RESP 16; TEMP 36.6; O2SAT 99
[2022-10-25] MEDS: Benzocaine 20% Gel 30 GM JAR MM (22:44)
[2022-10-25] MEDS: Bupivacaine 0.5% Pres-Free 30 ML VIAL IJ (22:44)
--- NOTE | 2022-10-25 23:23 | ED.GENADUL_ITS ---
Discharge Plan Disposition Patient Disposition: Home Discharge Details Clinical Impression: Pain, dental Primary Care Provider: Brendon Vivar ED Provider: Luh Tsai Home Meds and New Rx's Prescriptions: New clindamycin HCl 300 mg capsule 450 mg PO Q8H 9 Days Qty: 41 0RF No Action acetaminophen 325 mg capsule 650 mg PO Q6H PRN fluoxetine 20 mg capsule 60 mg PO DAILY Qty: 270 3RF clonazepam 1 mg tablet 1 mg PO BID MDD 2mg PRN (Reason: severe anxiety episodes) Qty: 28 0RF Rx Instructions: Continue increased dose for acute anxiety episodes prednisone 50 mg tablet 50 mg PO DAILY Qty: 7 0RF methadone 10 mg/5 mL solution 110 mg PO QAM esomeprazole magnesium [Nexium] 20 mg capsule,delayed release(DR/EC) 20 mg PO DAILY Qty: 30 0RF calcium carbonate [Tums] 200 mg calcium (500 mg) tablet,chewable 1,000 mg PO BID Qty: 0 0RF Hold Instructions: Resume on 06/15/22. calcitriol 0.5 mcg capsule 0.5 mcg PO BID Qty: 360 3RF Hold Instructions: Resume on 06/15/22. gabapentin 800 mg tablet 300 mg PO DAILY ibuprofen 200 mg Tablet 600 mg PO PRN PRN magnesium gluconate 27 mg magnesium (500 mg) tablet 27 mg PO BID Qty: 30 0RF cyclobenzaprine 10 mg tablet 10 mg PO TID PRN (Reason: muscle spasm) Qty: 10 0RF Discharge Instructions Instructions: Toothache (ED) Additional Instructions: Please follow-up with your dentist on Friday Take the antibiotic as prescribed Ibuprofen and Tylenol as needed for pain Return earlier should you have new or worsening complaints Referrals: Brendon Vivar DO [Primary Care Provider] - Discharge Data Discharge Date/Time-TO BE ENTERED AT DEPARTURE: 10/25/22 23:40 Medical Decision Making 27 yo male known to this facility presents with dental pain, given dental block inferior alveolar with good success placed on antibiotics We will follow-up with dentist Return precautions reviewed and patient expressed understanding Medical Records Medical records reviewed: Yes I reviewed the patient's medical records. Lab Data Lab results reviewed: Yes I reviewed the patient's lab results. HPI General Date/Time Provider Initiated Documentation: 10/25/22 22:27 . HPI Narrative: This 27-year-old male known to this facility presents with left lower dental pain for the past 24 hours. Denies fever or chills. States water is the only thing that helps with this pain. Has seen the dentist for other issues in the past and does have establish care but did not visit for this complaint. Denies any current chest pain, shortness of breath, difficulty swallowing, fever. Related Data Home Medications Medication Instructions Recorded Confirmed methadone 10 mg/5 mL oral solution 110 mg PO QAM 11/16/21 10/25/22 acetaminophen 325 mg capsule 650 mg PO Q6H PRN 06/07/22 10/25/22 calcitriol 0.5 mcg capsule 0.5 mcg PO BID #360 caps 06/14/22 10/25/22 calcium carbonate 200 mg calcium 1,000 mg PO BID #0 tabs 06/14/22 10/25/22 (500 mg) chewable tablet (Tums) magnesium gluconate 27 mg 27 mg PO BID #30 tabs 07/17/22 10/25/22 magnesium (500 mg) tablet fluoxetine 20 mg capsule 60 mg PO DAILY #270 caps 07/18/22 10/25/22 gabapentin 800 mg tablet 300 mg PO DAILY 09/19/22 10/25/22 ibuprofen 200 mg tablet 600 mg PO PRN PRN 09/19/22 10/25/22 esomeprazole magnesium 20 mg 20 mg PO DAILY #30 caps 09/24/22 10/25/22 capsule,delayed release (Nexium) cyclobenzaprine 10 mg tablet 10 mg PO TID PRN muscle spasm #10 10/09/22 10/25/22 tabs clonazepam 1 mg tablet 1 mg PO BID PRN severe anxiety 10/11/22 10/25/22 episodes #28 tabs prednisone 50 mg tablet 50 mg PO DAILY #7 tabs 10/22/22 10/25/22 clindamycin HCl 300 mg capsule 450 mg PO Q8H 9 days #41 caps 10/25/22 Previous Rx's Medication Instructions Recorded calcitriol 0.5 mcg capsule 0.5 mcg PO BID #360 caps 06/14/22 calcium carbonate 200 mg calcium 1,000 mg PO BID #0 tabs 06/14/22 (500 mg) chewable tablet (Tums) magnesium gluconate 27 mg 27 mg PO BID #30 tabs 07/17/22 magnesium (500 mg) tablet fluoxetine 20 mg capsule 60 mg PO DAILY #270 caps 07/18/22 esomeprazole magnesium 20 mg 20 mg PO DAILY #30 caps 09/24/22 capsule,delayed release (Nexium) cyclobenzaprine 10 mg tablet 10 mg PO TID PRN muscle spasm #10 10/09/22 tabs clonazepam 1 mg tablet 1 mg PO BID PRN severe anxiety 10/11/22 episodes #28 tabs prednisone 50 mg tablet 50 mg PO DAILY #7 tabs 10/22/22 clindamycin HCl 300 mg capsule 450 mg PO Q8H 9 days #41 caps 10/25/22 Allergies Allergy/AdvReac Type Severity Reaction Status Date / Time codeine Allergy Intermediate Verified 10/25/22 22:19 amoxicillin AdvReac Intermediate Nausea Verified 10/25/22 22:19 General Stated Complaint: DentalOral ADRIANA: 4 PFSH All Active Problems (Updated 10/27/22 @ 00:04 by HAMMAD WILEY) Pain, dental (Acute) Paresthesia (Acute) Neck pain (Acute) C7 radiculopathy (Acute) Cervical myofascial strain (Acute) Cervical radicular pain (Acute) Neck pain on left side (Acute) Neuralgia of left upper extremity (Acute) Tingling (Acute) Cervical radiculopathy (Acute) Gynecomastia, male (Acute) b/l, per CT (Jul 2022).. Possible 2' Methadone, Clnzpm (?). Surg eval (+)/No further action. CKD (chronic kidney disease) stage 2, GFR 60-89 ml/min (Acute) GFR 64-65, with Hx FLORESITA and GFR < 45 Complex medical condition (Chronic) Serious electrolyte imbalances, with gynecomastia, possible MEN Dx, CKD and anemia with baseline anxiety and Hx PTSD. History of electrolyte imbalance (Acute) Neck pain on left side (Acute) with shoulder, upper back pain.. torticollis, radiating into left hip/leg Pulmonary nodule 1 cm or greater in diameter (Chronic) Therapeutic opioid induced constipation (Acute) Sphincter of Oddi dysfunction (Chronic) Abnormal CT scan, kidney (Acute) Intrahepatic bile duct dilation (Acute) Common bile duct dilatation (Acute) Abdominal pain (Acute) Iatrogenic hypocalcemia (Acute) Multiple endocrine neoplasia type I (Chronic) Chronic constipation (Chronic) Primary hyperparathyroidism (Chronic) Depression (Chronic) Hypocalcemia (Chronic) Hypomagnesemia (Chronic) Depression (Chronic) Suicidal ideation (Acute) Elevated parathyroid hormone (Acute) Family history of coronary arteriosclerosis (Chronic) Father of DE at 50, mother had DE at 42 Severe anxiety with panic (Chronic) Cellulitis (Acute) Medical History Anxiety Depression Family history of multiple endocrine neoplasia, type 1 Hyperlipidemia Hypocalcemia PTSD (post-traumatic stress disorder) Surgical History H/O parathyroidectomy Family History Mother Anxiety Asthma Depression Sister Anxiety Depression Father Cancer lung & stomach Depression Diabetes Hypertension MEN 1 (multiple endocrine neoplasia) Social History Smoking/Tobacco Use Status: Never Smoking risk assessment performed?: Yes Alcohol Intake: never 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 Adopted: No Caregiver/Support person: No Foster care: No Household members: none Housing: house Number of Children: 0 Communication Needs: None Education Level: high school Do you need help understanding health information?: Never 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 and animals: Yes (Ally) Pets and animals: dog(s) Sexually active: No Do you think of yourself as: straight/heterosexual Current gender identity: male What is your relationship status?: How often do you talk on the phone with friends or family?: twice per week How often do you get together with friends or relatives?: never Do you belong to any clubs or organized social groups?: no Panel score (0-1 are the most socially isolated patients): 0 What type of physical activity do you participate in: walking Duration: 15-30 minutes/day Frequency: 5-6 times per week Maryam/Synagogue: [employer] Special maryam needs: No Seatbelt use: always Helmet use: Yes Helmet use: always Drive 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 bobtail 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 Exam Const General: cooperative, comfortable and acute distress [facility] Teeth image: 1. 2. Course Vital Signs Vital signs: Vital Signs Temperature 36.6 C 10/25/22 22:16 Pulse 89 10/25/22 22:16 Respiratory Rate 16 10/25/22 22:16 Blood Pressure 143/78 H 10/25/22 22:16 Pulse Oximetry 99 10/25/22 22:16 Temperature 36.6 C 10/25/22 22:16 Temperature Source Oral 10/25/22 22:16 Pulse 89 10/25/22 22:16 Respiratory Rate 16 10/25/22 22:16 Respiratory Effort Normal 10/25/22 22:16 Blood Pressure 143/78 H 10/25/22 22:16 Blood Pressure Position Sitting 10/25/22 22:16 Pulse Oximetry 99 10/25/22 22:16 Oxygen Delivery Method Room Air 10/25/22 22:16 Oxygen Flow Rate 0 10/25/22 22:16 Pain Level 10 10/25/22 22:16 Procedures Nerve Block Nerve Block 1: Time out performed: Yes Local Anesthetic: Bupivicaine 0.25% Amount of anesthesia used (mL): 3 Procedure Successful: Yes Patient Tolerated Procedure: well
[2022-10-25] MEDS: Clindamycin 150 MG CAP, 12 CAPS/BTL 450 MG PO (23:29)
== END 2022-10-25 23:40 | disposition home or self-care (01) ==
PROVIDERS: Emergency Provider Physician Assistant; PCP Family Medicine
DX: K08.89 Other specified disorders of teeth and supporting structures (principal)
CPT/HCPCS: 64400; 99283

== ENCOUNTER 2022-11-01 11:41 | Emergency (ER) | payer OTHER, SELFPAY ==
[2022-11-01 11:46] VITALS: BP 134/91; PULSE 70; RESP 20; TEMP 37.1; O2SAT 97
[2022-11-01] MEDS: Famotidine 20 MG TAB 40 MG PO (12:57)
[2022-11-01] MEDS: Mylanta Suspension 30 ML CUP (13:08)
[2022-11-01] MEDS: Lidocaine 2% Viscous 15 ML CUP (13:08)
--- NOTE | 2022-11-01 13:51 | ED.GENADUL_ITS ---
Discharge Plan Disposition Patient Disposition: Home Condition: Stable Discharge Details Clinical Impression: GERD (gastroesophageal reflux disease) Primary Care Provider: Brendon Vivar ED Provider: Crow Gama Home Meds and New Rx's Prescriptions: Continued acetaminophen 325 mg capsule 650 mg PO Q6H PRN fluoxetine 20 mg capsule 60 mg PO DAILY Qty: 270 3RF clonazepam 1 mg tablet 1 mg PO BID MDD 2mg PRN (Reason: severe anxiety episodes) Qty: 28 0RF Rx Instructions: Continue increased dose for acute anxiety episodes prednisone 50 mg tablet 50 mg PO DAILY Qty: 7 0RF methadone 10 mg/5 mL solution 110 mg PO QAM esomeprazole magnesium [Nexium] 20 mg capsule,delayed release(DR/EC) 20 mg PO DAILY Qty: 30 0RF calcium carbonate [Tums] 200 mg calcium (500 mg) tablet,chewable 1,000 mg PO BID Qty: 0 0RF Hold Instructions: Resume on 06/15/22. calcitriol 0.5 mcg capsule 0.5 mcg PO BID Qty: 360 3RF Hold Instructions: Resume on 06/15/22. gabapentin 800 mg tablet 300 mg PO DAILY ibuprofen 200 mg Tablet 600 mg PO PRN PRN magnesium gluconate 27 mg magnesium (500 mg) tablet 27 mg PO BID Qty: 30 0RF cyclobenzaprine 10 mg tablet 10 mg PO TID PRN (Reason: muscle spasm) Qty: 10 0RF clindamycin HCl 300 mg capsule 450 mg PO Q8H 9 Days Qty: 41 0RF Discharge Instructions Instructions: GERD (Gastroesophageal Reflux Disease) (ED) Additional Instructions: Continue to take your medication as prescribed and follow-up with your primary care provider for reassessment. At this time I do not feel that you have any emergent findings and that your symptoms are most likely due to a gastritis or GERD. Referrals: Brendon Vivar DO [Primary Care Provider] - (As needed for reassessment) Medical Decision Making Patient presenting to the emergency department for chief complaint of epigastric pain. Patient states he was eating a chicken sandwich and within 15 to 30 minutes started having significant epigastric discomfort. Patient has history of GERD and gastritis and states that this feels similar to previous episodes. Patient denies any nausea or vomiting, fever chills, chest pain or shortness of breath. Physical exam shows epigastric tenderness without guarding, abdomen is otherwise soft and nontender with remainder of exam normal. We will give patient lidocaine Maalox and famotidine along with acetaminophen. 1345-Patient reassessed and states significant improvement of pain and discomfort so we will discharge patient to follow-up with primary care provider as needed for reassessment. After discussion of diagnosis and plan of care patient has no further needs, questions, or concerns and states clear understanding to return to the emergency department for any worsening symptoms. This documentation was generated using [employer] dictation system, please disregard any oddities of phrase or misspellings. HPI General Mode of arrival: ambulatory . Date/Time Provider Initiated Documentation: 11/01/22 12:47 . Limitations to Documentation: no limitations . Information obtained by: patient and RN notes reviewed . History of Present Illness 27 year old M presents to the emergency department with the chief complaint of Epigastric pain, described as moderate and similar to prior episodes, Quality is described as aching and sharp, and is localized to the abdomen. Patient started experiencing this minute(s) (30) and it has been co nstant. No relieving factors improve symptom(s), Eating worsens symptoms . Patient notes no other symptoms.. Patient did receive the following treatments prior to arrival, none Related Data Home Medications Medication Instructions Recorded Confirmed methadone 10 mg/5 mL oral solution 110 mg PO QAM 11/16/21 10/25/22 acetaminophen 325 mg capsule 650 mg PO Q6H PRN 06/07/22 10/25/22 calcitriol 0.5 mcg capsule 0.5 mcg PO BID #360 caps 06/14/22 10/25/22 calcium carbonate 200 mg calcium 1,000 mg PO BID #0 tabs 06/14/22 10/25/22 (500 mg) chewable tablet (Tums) magnesium gluconate 27 mg 27 mg PO BID #30 tabs 07/17/22 10/25/22 magnesium (500 mg) tablet fluoxetine 20 mg capsule 60 mg PO DAILY #270 caps 07/18/22 10/25/22 gabapentin 800 mg tablet 300 mg PO DAILY 09/19/22 10/25/22 ibuprofen 200 mg tablet 600 mg PO PRN PRN 09/19/22 10/25/22 esomeprazole magnesium 20 mg 20 mg PO DAILY #30 caps 09/24/22 10/25/22 capsule,delayed release (Nexium) cyclobenzaprine 10 mg tablet 10 mg PO TID PRN muscle spasm #10 10/09/22 10/25/22 tabs clonazepam 1 mg tablet 1 mg PO BID PRN severe anxiety 10/11/22 10/25/22 episodes #28 tabs prednisone 50 mg tablet 50 mg PO DAILY #7 tabs 10/22/22 10/25/22 clindamycin HCl 300 mg capsule 450 mg PO Q8H 9 days #41 caps 10/25/22 Previous Rx's Medication Instructions Recorded calcitriol 0.5 mcg capsule 0.5 mcg PO BID #360 caps 06/14/22 calcium carbonate 200 mg calcium 1,000 mg PO BID #0 tabs 06/14/22 (500 mg) chewable tablet (Tums) magnesium gluconate 27 mg 27 mg PO BID #30 tabs 07/17/22 magnesium (500 mg) tablet fluoxetine 20 mg capsule 60 mg PO DAILY #270 caps 07/18/22 esomeprazole magnesium 20 mg 20 mg PO DAILY #30 caps 09/24/22 capsule,delayed release (Nexium) cyclobenzaprine 10 mg tablet 10 mg PO TID PRN muscle spasm #10 10/09/22 tabs clonazepam 1 mg tablet 1 mg PO BID PRN severe anxiety 10/11/22 episodes #28 tabs prednisone 50 mg tablet 50 mg PO DAILY #7 tabs 10/22/22 clindamycin HCl 300 mg capsule 450 mg PO Q8H 9 days #41 caps 10/25/22 Allergies Allergy/AdvReac Type Severity Reaction Status Date / Time codeine Allergy Intermediate Verified 10/25/22 22:19 amoxicillin AdvReac Intermediate Nausea Verified 10/25/22 22:19 General Stated Complaint: Abd Prob ADRIANA: 3 Review of Systems Constitutional Constitutional: Denies chills, Denies fever(s) and Reports poor appetite Cardiovascular Cardiovascular: Denies chest pain and Denies dyspnea Respiratory Respiratory: Denies cough and Denies dyspnea Gastrointestinal Gastrointestinal: Reports as per HPI, Reports abdominal pain, Denies melena, Denies change in bowel habits, Denies constipation, Reports heartburn, Denies diarrhea, Denies nausea and Denies vomiting Genitourinary Genitourinary: Denies hematuria, Denies difficulty urinating, Denies urinary hesitancy, Denies urinary incontinence and Denies urinary urgency Integumentary/Breasts Skin/Breast: Denies rash PFSH All Active Problems Pain, dental (Acute) GERD (gastroesophageal reflux disease) (Chronic) Paresthesia (Acute) Neck pain (Acute) C7 radiculopathy (Acute) Cervical myofascial strain (Acute) Cervical radicular pain (Acute) Neck pain on left side (Acute) Neuralgia of left upper extremity (Acute) Tingling (Acute) Cervical radiculopathy (Acute) Gynecomastia, male (Acute) b/l, per CT (Jul 2022).. Possible 2' Methadone, Clnzpm (?). Surg eval (+)/No further action. CKD (chronic kidney disease) stage 2, GFR 60-89 ml/min (Acute) GFR 64-65, with Hx FLORESITA and GFR < 45 Complex medical condition (Chronic) Serious electrolyte imbalances, with gynecomastia, possible MEN Dx, CKD and anemia with baseline anxiety and Hx PTSD. History of electrolyte imbalance (Acute) Neck pain on left side (Acute) with shoulder, upper back pain.. torticollis, radiating into left hip/leg Pulmonary nodule 1 cm or greater in diameter (Chronic) Therapeutic opioid induced constipation (Acute) Sphincter of Oddi dysfunction (Chronic) Abnormal CT scan, kidney (Acute) Intrahepatic bile duct dilation (Acute) Common bile duct dilatation (Acute) Abdominal pain (Acute) Iatrogenic hypocalcemia (Acute) Multiple endocrine neoplasia type I (Chronic) Chronic constipation (Chronic) Primary hyperparathyroidism (Chronic) Depression (Chronic) Hypocalcemia (Chronic) Hypomagnesemia (Chronic) Depression (Chronic) Suicidal ideation (Acute) Elevated parathyroid hormone (Acute) Family history of coronary arteriosclerosis (Chronic) Father of PA at 50, mother had PA at 42 Severe anxiety with panic (Chronic) Cellulitis (Acute) Medical History Anxiety Depression Family history of multiple endocrine neoplasia, type 1 Hyperlipidemia Hypocalcemia PTSD (post-traumatic stress disorder) Surgical History H/O parathyroidectomy Family History Mother Anxiety Asthma Depression Sister Anxiety Depression Father Cancer lung & stomach Depression Diabetes Hypertension MEN 1 (multiple endocrine neoplasia) Social History Smoking/Tobacco Use Status: Never Smoking risk assessment performed?: Yes Alcohol Intake: never 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 Adopted: No Caregiver/Support person: No Foster care: No Household members: none Housing: house Number of Children: 0 Communication Needs: None Education Level: high school Do you need help understanding health information?: Never 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 and animals: Yes (Ally) Pets and animals: dog(s) Sexually active: No Do you think of yourself as: straight/heterosexual Current gender identity: male What is your relationship status?: How often do you talk on the phone with friends or family?: twice per week How often do you get together with friends or relatives?: never Do you belong to any clubs or organized social groups?: no Panel score (0-1 are the most socially isolated patients): 0 What type of physical activity do you participate in: walking Duration: 15-30 minutes/day Frequency: 5-6 times per week Maryam/Spiritism: Ho[employer]aoism Special maryam needs: No Seatbelt use: always Helmet use: Yes Helmet use: always Drive 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 bottom hoop 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 Exam Const General: cooperative Orientation: alert, awake and oriented x3 Resp Effort & Inspection: normal respiratory effort and able to speak in complete sentences Auscultation: clear to auscultation bilaterally Cardio Rate: regular rate Rhythm: regular rhythm Heart Sounds: S1 normal and S2 normal GI Palpation: soft, no hepatosplenomegaly, not firm, no guarding, no masses, no pulsatile masses, not rigid, no splenomegaly and tender in the epigastrum; not at McBurney's point, Cedillo's sign negative, psoas sign negative, with no rebound tenderness and Rovsing's sign negative Auscultation: normal bowel sounds Back/Spine/Pelvis Back: no CVA tenderness Neuro General: patient alert, patient awake, patient oriented x3, gait normal and moves all extremities Course Vital Signs Vital signs: Vital Signs Temperature 37.1 C 11/01/22 11:46 Pulse 70 11/01/22 11:46 Respiratory Rate 20 11/01/22 11:46 Blood Pressure 134/91 H 11/01/22 11:46 Pulse Oximetry 97 11/01/22 11:46 Temperature 37.1 C 11/01/22 11:46 Temperature Source Skin 11/01/22 11:46 Pulse 70 11/01/22 11:46 Respiratory Rate 20 11/01/22 11:46 Blood Pressure 134/91 H 11/01/22 11:46 Blood Pressure Position Sitting 11/01/22 11:46 Pulse Oximetry 97 11/01/22 11:46 Oxygen Delivery Method Room Air 11/01/22 11:46 Oxygen Flow Rate 0 11/01/22 11:46 Pain Level 8 11/01/22 11:46 Lab/Test Results Lab/Test Results: Laboratory Tests Range/Units 11/01/22 12:47 Acetaminophen Cancelled
[2022-11-01] MEDS: Acetaminophen 325 MG TAB 650 MG PO (13:54)
[2022-11-01 14:08] VITALS: BP 116/73; PULSE 90; RESP 16; TEMP 36.4; O2SAT 95
--- NOTE | 2022-11-02 23:02 | W.EDPROG ---
Date of service: 11/02/22 Time of Service: 23:02 Medical Decision Making Patient was seen and assessed by Scooter Gama last night. He has been prescribed calcitriol, and electrolyte management with part of his plan. Unfortunately his prescription for calcitriol was not able to be filled. He states that the pharmacy states that they are out of it until Friday morning. He is asking for the medication to hold him over until then. The medication that was part of his treatment plan for the last few visits. We did give the patient 4 mcg of calcitriol which we will hold him over for the next day and a half. He takes 1 mcg twice daily. I have extensively reviewed the treatment plan and discharge instructions with the patient. I have addressed all patient concerns at this time. The patient was made aware of what symptoms to monitor for that would warrant a return to the emergency department. Discussed the plan with the patient, they demonstrate verbal understanding and agreement with our assessment and plan at this time. The documentation in this chart was dictated using [employer] dictation software. Please excuse any dictation errors. Discharge Plan Disposition Patient Disposition: Home Condition: Stable Discharge Details Clinical Impression: GERD (gastroesophageal reflux disease) Primary Care Provider: Brendon Vivar ED Provider: Crow Gama Home Meds and New Rx's Prescriptions: Continued acetaminophen 325 mg capsule 650 mg PO Q6H PRN fluoxetine 20 mg capsule 60 mg PO DAILY Qty: 270 3RF clonazepam 1 mg tablet 1 mg PO BID MDD 2mg PRN (Reason: severe anxiety episodes) Qty: 28 0RF Rx Instructions: Continue increased dose for acute anxiety episodes prednisone 50 mg tablet 50 mg PO DAILY Qty: 7 0RF methadone 10 mg/5 mL solution 110 mg PO QAM esomeprazole magnesium [Nexium] 20 mg capsule,delayed release(DR/EC) 20 mg PO DAILY Qty: 30 0RF calcium carbonate [Tums] 200 mg calcium (500 mg) tablet,chewable 1,000 mg PO BID Qty: 0 0RF Hold Instructions: Resume on 06/15/22. calcitriol 0.5 mcg capsule 0.5 mcg PO BID Qty: 360 3RF Hold Instructions: Resume on 06/15/22. gabapentin 800 mg tablet 300 mg PO DAILY ibuprofen 200 mg Tablet 600 mg PO PRN PRN magnesium gluconate 27 mg magnesium (500 mg) tablet 27 mg PO BID Qty: 30 0RF cyclobenzaprine 10 mg tablet 10 mg PO TID PRN (Reason: muscle spasm) Qty: 10 0RF clindamycin HCl 300 mg capsule 450 mg PO Q8H 9 Days Qty: 41 0RF Discharge Instructions Instructions: GERD (Gastroesophageal Reflux Disease) (ED) Additional Instructions: Continue to take your medication as prescribed and follow-up with your primary care provider for reassessment. At this time I do not feel that you have any emergent findings and that your symptoms are most likely due to a gastritis or GERD. Referrals: Brendon Vivar DO [Primary Care Provider] - (As needed for reassessment) Discharge Data Discharge Date/Time-TO BE ENTERED AT DEPARTURE: 11/01/22 14:11
[2022-11-03] MEDS: Calcitriol 0.25 MCG CAP 4 MCG PO (08:00)
== END 2022-11-01 14:11 | disposition home or self-care (01) ==
PROVIDERS: Emergency Provider Nurse Practitioner Family; PCP Family Medicine
DX: K21.9 Gastro-esophageal reflux disease without esophagitis
CPT/HCPCS: 99283; 80329

== ENCOUNTER 2022-11-05 09:27 | Emergency (ER) | payer OTHER, SELFPAY ==
--- NOTE | 2022-11-05 09:15 | RT.EKG_ITS ---
APPROVED REPORT Exam: Resting ECG Reason for Exam: chest pain Patient Location: E HR:135 bpm ECG Measurements Heart Rate 135 AXIS ME 143 P 38 QRSd 84 QRS 56 QT 287 T 13 QTc 431 Conclusion Sinus tachycardia...rate> 99 Consider anterior infarct...Q >30mS in V2-V5 Borderline ST depression, anterolateral leads...ST <-0.07mV, I aVL V2-V6
[2022-11-05 09:36] VITALS: BP 130/81; PULSE 145; RESP 20; TEMP 37.7; O2SAT 100
[2022-11-05 09:42] VITALS: RESP 18
--- NOTE | 2022-11-05 10:00 | DI.RAD_ITS ---
Exam(s) XR PORTABLE CHEST AP EXAM: XR PORTABLE CHEST AP CLINICAL HISTORY: chest pain TECHNIQUE: 2D digital imaging was performed of the chest. One image was obtained. An AP view was ob tained. COMPARISON: CR XR PORTABLE CHEST AP from 07/17/2022 CR XR CHEST 2V PA LATERAL from 09/05/2022 FINDINGS: MEDIASTINUM: Normal. HEART: Normal. PULMONARY VASCULATURE: Normal. LUNGS: Clear. PLEURAL SPACE: No pleural effusion or pneumothorax. BONE:Within normal limits for the patient's age. OTHER FINDINGS:Normal. IMPRESSION: No acute pulmonary findings. DATA REPOSITORY: RADIATION DOSE DELIVERED:
--- NOTE | 2022-11-05 10:06 | ED.GENADUL_ITS ---
Discharge Plan Disposition Patient Disposition: Home Discharge Details Clinical Impression: Heart palpitations, Dehydration Primary Care Provider: Brendon Vivar ED Provider: Daniel Fleming Meds and New Rx's Prescriptions: Continued acetaminophen 325 mg capsule 650 mg PO Q6H PRN fluoxetine 20 mg capsule 60 mg PO DAILY Qty: 270 3RF clonazepam 1 mg tablet 1 mg PO BID MDD 2mg PRN (Reason: severe anxiety episodes) Qty: 28 0RF Rx Instructions: Continue increased dose for acute anxiety episodes prednisone 50 mg tablet 50 mg PO DAILY Qty: 7 0RF methadone 10 mg/5 mL solution 110 mg PO QAM esomeprazole magnesium [Nexium] 20 mg capsule,delayed release(DR/EC) 20 mg PO DAILY Qty: 30 0RF calcium carbonate [Tums] 200 mg calcium (500 mg) tablet,chewable 1,000 mg PO BID Qty: 0 0RF Hold Instructions: Resume on 06/15/22. calcitriol 0.5 mcg capsule 0.5 mcg PO BID Qty: 360 3RF Hold Instructions: Resume on 06/15/22. gabapentin 800 mg tablet 300 mg PO DAILY ibuprofen 200 mg Tablet 600 mg PO PRN PRN magnesium gluconate 27 mg magnesium (500 mg) tablet 27 mg PO BID Qty: 30 0RF cyclobenzaprine 10 mg tablet 10 mg PO TID PRN (Reason: muscle spasm) Qty: 10 0RF clindamycin HCl 300 mg capsule 450 mg PO Q8H 9 Days Qty: 41 0RF Discharge Instructions Instructions: Heart Palpitations (ED), Dehydration (ED) Discharge Data Discharge Physician: Daniel Fleming Medical Decision Making Patient presents to the emergency department with palpitations shortness of breath and anxiety was given IV fluids was also given Ativan and he has been sleeping quietly without any symptoms. EKG was done which shows sinus tachycardia but no acute ST-T changes Labs were obtained which include troponin and D-dimer which are both negative to consecutive troponins 3 hours apart were obtained which were negative. Most likely patient has anxiety accomplished with dehydration causing the palpitations. This point is noncardiac chest pain Differential Diagnosis Differential Diagnosis: 1. Anxiety disorder 2. Dehydration 3. Acute coronary syndrome Medical Records Medical records reviewed: Yes I reviewed the patient's medical records. Imaging Data Radiologic Study: Attestation: I personally reviewed and interpreted this imaging study as follows: Imaging: X-Ray My impression: No acute abnormality as read by me by the radiologist Lab Data Lab results reviewed: Yes I reviewed the patient's lab results. Lab results narrative: Labs which included 2 consecutive troponins are negative and D-dimer is negative with mild elevation of the white count and elevation of the BUN to creatinine ratio compatible with dehydration ECG Data Attestation: I personally reviewed and interpreted this ECG (s) as follows: Prior ECG tracings: available for review Interpretation: Sinus tachycardia normal axis no acute ST-T changes heart rate of 135 Core Measures Measure exclusions: not indicated HPI General Date/Time Provider Initiated Documentation: 11/05/22 09:54 . HPI Narrative: Patient presents to the emergency department complaining of feeling very anxious and palpitations with chest pain. Denies any fever denies any chills reports generalized aches Related Data Home Medications Medication Instructions Recorded Confirmed methadone 10 mg/5 mL oral solution 110 mg PO QAM 11/16/21 11/05/22 acetaminophen 325 mg capsule 650 mg PO Q6H PRN 06/07/22 11/05/22 calcitriol 0.5 mcg capsule 0.5 mcg PO BID #360 caps 06/14/22 11/05/22 calcium carbonate 200 mg calcium 1,000 mg PO BID #0 tabs 06/14/22 11/05/22 (500 mg) chewable tablet (Tums) magnesium gluconate 27 mg 27 mg PO BID #30 tabs 07/17/22 11/05/22 magnesium (500 mg) tablet fluoxetine 20 mg capsule 60 mg PO DAILY #270 caps 07/18/22 11/05/22 gabapentin 800 mg tablet 300 mg PO DAILY 09/19/22 11/05/22 ibuprofen 200 mg tablet 600 mg PO PRN PRN 09/19/22 11/05/22 esomeprazole magnesium 20 mg 20 mg PO DAILY #30 caps 09/24/22 11/05/22 capsule,delayed release (Nexium) cyclobenzaprine 10 mg tablet 10 mg PO TID PRN muscle spasm #10 10/09/22 11/05/22 tabs clonazepam 1 mg tablet 1 mg PO BID PRN severe anxiety 10/11/22 11/05/22 episodes #28 tabs prednisone 50 mg tablet 50 mg PO DAILY #7 tabs 10/22/22 11/05/22 clindamycin HCl 300 mg capsule 450 mg PO Q8H 9 days #41 caps 10/25/22 11/05/22 Previous Rx's Medication Instructions Recorded calcitriol 0.5 mcg capsule 0.5 mcg PO BID #360 caps 06/14/22 calcium carbonate 200 mg calcium 1,000 mg PO BID #0 tabs 06/14/22 (500 mg) chewable tablet (Tums) magnesium gluconate 27 mg 27 mg PO BID #30 tabs 07/17/22 magnesium (500 mg) tablet fluoxetine 20 mg capsule 60 mg PO DAILY #270 caps 07/18/22 esomeprazole magnesium 20 mg 20 mg PO DAILY #30 caps 09/24/22 capsule,delayed release (Nexium) cyclobenzaprine 10 mg tablet 10 mg PO TID PRN muscle spasm #10 10/09/22 tabs clonazepam 1 mg tablet 1 mg PO BID PRN severe anxiety 10/11/22 episodes #28 tabs prednisone 50 mg tablet 50 mg PO DAILY #7 tabs 10/22/22 clindamycin HCl 300 mg capsule 450 mg PO Q8H 9 days #41 caps 10/25/22 Allergies Allergy/AdvReac Type Severity Reaction Status Date / Time codeine Allergy Intermediate Verified 11/05/22 09:41 amoxicillin AdvReac Intermediate Nausea Verified 11/05/22 09:41 General Stated Complaint: GenMedical ADRIANA: 3 Review of Systems All systems reviewed & are unremarkable except as noted in HPI and below Constitutional Constitutional: Reports as per HPI and Reports system reviewed and no additional complaints, except as documented Eyes Eyes: Reports as per HPI and Reports system reviewed and no additional compl aints, except as documented ENT Ears, Nose, Mouth, and Throat: Reports system reviewed and no additional complaints, except as documented and Reports as per HPI Cardiovascular Cardiovascular: Reports as per HPI and Reports system reviewed and no additional complaints, except as documented Respiratory Respiratory: Reports as per HPI and Reports system reviewed and no additional complaints, except as documented Gastrointestinal Gastrointestinal: Reports as per HPI and Reports system reviewed and no additional complaints, except as documented Genitourinary Genitourinary: Reports system reviewed and no additional complaints, except as documented and Reports as per HPI Musculoskeletal Musculoskeletal: Reports system reviewed and no additional complaints, except as documented and Reports as per HPI Neurologic Neurologic: Reports system reviewed and no additional complaints, except as documented and Reports as per HPI Psychiatric Psychiatric: Reports system reviewed and no additional complaints, except as documented, Reports abnormal sleep pattern, Reports anxiety and Reports panic attacks PFSH All Active Problems (Updated 11/05/22 @ 14:06 by Daniel Fleming MD) Pain, dental (Acute) GERD (gastroesophageal reflux disease) (Chronic) Heart palpitations (Acute) Dehydration (Acute) Paresthesia (Acute) Neck pain (Acute) C7 radiculopathy (Acute) Cervical myofascial strain (Acute) Cervical radicular pain (Acute) Tingling (Acute) Cervical radiculopathy (Acute) Gynecomastia, male (Acute) b/l, per CT (Jul 2022).. Possible 2' Methadone, Clnzpm (?). Surg eval (+)/No further action. CKD (chronic kidney disease) stage 2, GFR 60-89 ml/min (Acute) GFR 64-65, with Hx FLORESITA and GFR < 45 Complex medical condition (Chronic) Serious electrolyte imbalances, with gynecomastia, possible MEN Dx, CKD and anemia with baseline anxiety and Hx PTSD. History of electrolyte imbalance (Acute) Neck pain on left side (Acute) with shoulder, upper back pain.. torticollis, radiating into left hip/leg Pulmonary nodule 1 cm or greater in diameter (Chronic) Therapeutic opioid induced constipation (Acute) Sphincter of Oddi dysfunction (Chronic) Abnormal CT scan, kidney (Acute) Intrahepatic bile duct dilation (Acute) Common bile duct dilatation (Acute) Abdominal pain (Acute) Iatrogenic hypocalcemia (Acute) Multiple endocrine neoplasia type I (Chronic) Chronic constipation (Chronic) Primary hyperparathyroidism (Chronic) Depression (Chronic) Hypocalcemia (Chronic) Hypomagnesemia (Chronic) Depression (Chronic) Suicidal ideation (Acute) Elevated parathyroid hormone (Acute) Family history of coronary arteriosclerosis (Chronic) Father of [place] at 50, mother had [place] at 42 Severe anxiety with panic (Chronic) Cellulitis (Acute) Medical History Anxiety Depression Family history of multiple endocrine neoplasia, type 1 Hyperlipidemia Hypocalcemia PTSD (post-traumatic stress disorder) Surgical History H/O parathyroidectomy Family History Mother Anxiety Asthma Depression Sister Anxiety Depression Father Cancer lung & stomach Depression Diabetes Hypertension MEN 1 (multiple endocrine neoplasia) Social History Smoking/Tobacco Use Status: Never Smoking risk assessment performed?: Yes Alcohol Intake: never 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 Adopted: No Caregiver/Support person: No Foster care: No Household members: none Housing: house Number of Children: 0 Communication Needs: None Education Level: high school Do you need help understanding health information?: Never 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 and animals: Yes (Ally) Pets and animals: dog(s) Sexually active: No Do you think of yourself as: straight/heterosexual Current gender identity: male What is your relationship status?: How often do you talk on the phone with friends or family?: twice per week How often do you get together with friends or relatives?: never Do you belong to any clubs or organized social groups?: no Panel score (0-1 are the most socially isolated patients): 0 What type of physical activity do you participate in: walking Duration: 15-30 minutes/day Frequency: 5-6 times per week Maryam/Sikhism: Pentecostal Special maryam needs: No Seatbelt use: always Helmet use: Yes Helmet use: always Drive 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 delivery motorcycle 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 Exam Const General: cooperative, healthy appearing and comfortable HENMT Head: normal to inspection General nose exam: external nose normal Face and sinus: normal facial exam Mouth: oral mucosae normal Eyes General: appearance normal, both eyes and all related structures Conjunctivae: conjunctivae normal Sclera: sclerae normal Pupils: PERRL EOM: EOM intact bilaterally Direct ophthalmoscopy: normal light reflex Neck Neck: normal visual inspection and full ROM Chest Chest: normal inspection of the chest Resp Effort & Inspection: normal respiratory effort and able to speak in complete sentences Cardio Jugular venous pressure: no JVD Palpation: normal PMI Rate: tachycardic Rhythm: regular rhythm Heart Sounds: S1 normal and S2 normal GI Inspection: normal to inspection Palpation: soft Percussion: normal to percussion Back/Spine/Pelvis Back: no CVA tenderness Cervical Spine: normal cervical lordosis Skin General skin exam: no rashes or lesions noted and elasticity normal Neuro General: patient alert, patient awake and patient oriented x3 Cranial Nerves: CN's II-XI intact bilaterally Cognition: normal cognition Speech: speech normal Gait: normal gait Motor: muscle tone normal throughout Sensory Exam: no sensory deficits noted Extrem General: normal to inspection and full ROM Right lower extremity: normal to inspection Psych Appearance: grossly normal Mood: anxious mood Course Patient presents to the emergency department with episode of palpitations clearly anxious tachycardic received IV fluids and Ativan IV as well as labs were obtained Vital Signs Vital signs: Vital Signs Temperature 37.7 C H 11/05/22 09:36 Pulse 145 H 11/05/22 09:36 Respiratory Rate 20 11/05/22 09:36 Blood Pressure 130/81 11/05/22 09:36 Pulse Oximetry 100 11/05/22 09:36 Temperature 37.7 C H 11/05/22 09:36 Temperature Source Temporal Artery Scan 11/05/22 09:36 Pulse 145 H 11/05/22 09:36 Respiratory Rate 18 11/05/22 09:42 Respiratory Effort Normal, Non-Labored 11/05/22 09:42 Respiratory Depth Normal 11/05/22 09:42 Respiratory Pattern Normal 11/05/22 09:42 Blood Pressure 130/81 11/05/22 09:36 Blood Pressure Position Sitting 11/05/22 09:36 Pulse Oximetry 100 11/05/22 09:36 Oxygen Delivery Method Room Air 11/05/22 09:36 Oxygen Flow Rate 0 11/05/22 09:36
[2022-11-05 10:12] LABS: Abs Immature Grans 0.05 10^3/uL (0.0-0.06); Absolute Eosinophil Count 0.21 10^3/uL (0.0-0.7); Absolute Lymphocyte Count 1.75 10^3/uL (1.2-3.4); Absolute Monocyte Count 1.38 10^3/uL (0.1-0.8); Basophils % 0.2; Eosinophils % 1.7; HCT 34.8 % (40.0-50.0); HGB 11.8 g/dL (13.5-17.5); Immature Grans % 0.4; Lymphocytes % 14.3; MCH 30.6 pg (27.0-33.0); MCHC 33.9 % (32.0-36.0); MCV 90 fL (80-95); MPV 10.5 fL (8.0-11.0); Monocytes % 11.3; Neutrophils % 72.1; Platelet Count 275 10^3/uL (130-400); RBC 3.86 10^6/uL (4.36-5.78); RDW 11.6 % (11.8-14.1); RDW-SD 37.7 fL; WBC 12.23 10^3/uL (4.4-10.8)
[2022-11-05 10:19] LABS: Absolute Basophil Count 0.02 10^3/uL (0.0-0.2); Absolute Neutrophil Count 8.82 10^3/uL (1.2-6.7)
[2022-11-05 10:27] LABS: *AMPHETAMINES SCREEN URINE Negative (Negative); *BARBITURATES SCREEN URINE Negative (Negative); *BENZODIAZEPINES SCREEN URINE Negative (Negative); Cannabinoids THC Negative (Negative); Cocaine Screen,Urine Negative (Negative); OPIATES URINE SCREEN Negative (Negative); Tricyclic Antidepressants Positive (Negative)
[2022-11-05 10:31] LABS: ALT 61 U/L (16-63); AST 27 U/L (15-37); Albumin 3.3 g/dL (3.4-5.0); Alkaline Phosphatase 132 U/L (46-116); Anion Gap 7.1 mmol/L (3-11); BUN 14 mg/dL (7-18); Bilirubin, Total 0.2 mg/dL (0.2-1.0); CO2 31.9 mmol/L (21.0-32.0); CREATININE 1.4 mg/dL (0.70-1.30); Calcium 8.4 mg/dL (8.5-10.1); Chloride 100 mmol/L (98-107); Estimated GFR 69.77 (mL/min/1.73m2); Glucose 114 mg/dL (74-106); Magnesium 1.5 mg/dL (1.8-2.4); Potassium 3.5 mmol/L (3.5-5.1); Sodium 139 mmol/L (136-145); Total Protein 7.8 g/dL (6.4-8.2); Troponin I < 50 ng/L (<or=60)
[2022-11-05] MEDS: Normal Saline 1,000 ML 1000 ML IV (10:31)
[2022-11-05] MEDS: LORazepam 2 MG/ML VIAL 1 MG IVP (10:31)
[2022-11-05 10:43] LABS: D-Dimer 484 ng/mlFEU (<500)
[2022-11-05 10:59] VITALS: BP 118/74; PULSE 86; RESP 9; TEMP 37.6; O2SAT 91
[2022-11-05 13:11] VITALS: BP 117/77; PULSE 78; RESP 18; TEMP 36.9; O2SAT 95
[2022-11-05 13:33] LABS: Troponin I < 50 ng/L (<or=60)
[2022-11-05 14:10] VITALS: BP 112/75; PULSE 78; RESP 18; O2SAT 97
== END 2022-11-05 14:10 | disposition home or self-care (01) ==
PROVIDERS: Emergency Provider Emergency Medicine Emergency Medical Services; PCP Family Medicine
DX: R00.2 Palpitations (principal); E86.0 Dehydration; R06.02 Shortness of breath; F41.9 Anxiety disorder, unspecified; R07.9 Chest pain, unspecified
CPT/HCPCS: 36415; 80053; 80307; 93005; 96361; 96374; 99284; 71045; 83735; 84484; 85025; 85379; 93010; J2060

== ENCOUNTER 2022-11-16 07:50 | Emergency (ER) | payer OTHER, SELFPAY ==
--- NOTE | 2022-11-16 07:45 | DI.CT_ITS ---
Exam(s) CT ABDOMEN PELVIS W EXAM: CT ABDOMEN PELVIS W CLINICAL HISTORY: RLQ abd Pain TECHNIQUE: Imaging Protocol: Axial computed tomography images with coronal and sagittal reformatted images were created and reviewed CONTRAST MATERIAL: Intravenous: Omnipaque 350 Contrast volume:100 mL Oral: No COMPARISON: CT CT ABDOMEN PELVIS W from 08/23/[address] THORACIC SPINE RECONS from 10/03/[address] CHEST WO from 10/03/2022 FINDINGS: The dome of the liver is not included on this examination. ABDOMEN: Lung Bases: Normal where visualized. Liver: Normal density. No measurable mass. Portal, Superior Mesenteric, and Splenic Veins: Unremarkable. Gallbladder and Biliary Tract: There are couple of foci of decreased attenuation in the gallbladder l ikely reflecting stones. (Series 6, image 196 and 194). There is mild intra and extrahepatic biliar y ductal dilatation the common duct measures 1 cm. No definite choledocholithiasis is identified. N o pericholecystic fluid is seen. Pancreas: Normal density, no abnormal calcifications or inflammatory process. Spleen: Normal. Adrenals: No masses seen. Kidneys: Normal size, contour and axis. No radiodense stones or obstructive uropathy. No masses seen. Abdominal Aorta: Abdominal portion non-dilated. Bowel: No obstruction or bowel wall thickening. There is a normal appendix seen. It is transversely oriented with the tip near the IVC. There is a moderate amount of stool throughout the colon which m ay represent constipation. Peritoneal Cavity: No ascites, collection or mesenteric inflammatory response. No free air. Lymph Nodes: Within normal limits. Bones: Within normal limits for the patient's age. Soft Tissues: Unremarkable. PELVIS: Bladder: Symmetric distention, no gross wall thickening. Reproductive Organs: Unremarkable as visualized. Lymph Nodes: Within normal limits. Bones: Within normal limits for the patient's age. IMPRESSION: 1. Findings suggestive of gallstones. Mild extrahepatic biliary ductal dilatation. No definite evid ence of choledocholithiasis. A abdominal ultrasound is recommended for further evaluation. 2. Stool throughout the colon suggesting constipation. 3. No evidence of appendicitis. Unexpected findings RADIATION DOSE DELIVERED: 1,183.18mGy.cm Total DLP DATA REPOSITORY: All CT scans at this facility are submitted to the National Radiology Data Registry (NRDR) Dose Index Registry (DIR) with the [employer] (A[employer]). RADIATION OPTIMIZATION: All CT scans at this facility use at least one of these dose optimization te chniques: automated exposure control; mA and/or kV adjustment per patient size (includes targeted exa ms where dose is matched to clinical indication); or iterative reconstruction.
[2022-11-16 07:55] VITALS: BP 116/69; PULSE 100; RESP 18; TEMP 36.7; O2SAT 98
--- NOTE | 2022-11-16 08:03 | ED.GENADUL_ITS ---
Discharge Plan Disposition Patient Disposition: Home Discharge Details Clinical Impression: Acute constipation Primary Care Provider: Brendon Vivar ED Provider: Antoinette Templeton Home Meds and New Rx's Prescriptions: Continued acetaminophen 325 mg capsule 650 mg PO Q6H PRN methadone 10 mg/5 mL solution 110 mg PO QAM esomeprazole magnesium [Nexium] 20 mg capsule,delayed release(DR/EC) 20 mg PO DAILY Qty: 30 0RF clonazepam 0.5 mg tablet 0.5 mg PO BID PRN (Reason: anxiety) Qty: 56 0RF magnesium gluconate 27 mg magnesium (500 mg) tablet 27 mg PO BID Qty: 60 3RF calcium carbonate [Tums] 200 mg calcium (500 mg) tablet,chewable 1,000 mg PO BID Qty: 0 0RF Hold Instructions: Resume on 06/15/22. calcitriol 0.5 mcg capsule 0.5 mcg PO BID Qty: 360 3RF Hold Instructions: Resume on 06/15/22. gabapentin 800 mg tablet 300 mg PO DAILY ibuprofen 200 mg Tablet 600 mg PO PRN PRN cyclobenzaprine 10 mg tablet 10 mg PO TID PRN (Reason: muscle spasm) Qty: 10 0RF Discharge Instructions Instructions: Constipation (ED) Additional Instructions: Increase oral fluids. He may try prunes or prune juice. He may also try a gentle laxative such as MiraLAX mixed with 8 ounces of liquid once daily she can get [id number]. If this is unsuccessful he may advance to glycerin suppositories or fleets enema which you can also get [id number]. CT shows moderate to severe constipation. No evidence of appendicitis or problems with your gallbladder. Follow up with primary care provider in 3-5 days. Return to ED sooner if any worsening abdominal pain despite the above methods, fever, continued vomiting or concerns. Increase oral fluids. Please take Tylenol or Ibuprofen with food every 4-6 hours as needed for pain and swelling. Referrals: Brendon Vivar DO [Primary Care Provider] - 3 days Medical Decision Making 27-year-old male who is well-known to the department presents to the ER with a chief complaint of right lower quadrant abdominal pain. Patient reports that he came on gradually over the last few days worsened last night. Associated with 2 episodes of emesis. He reports his last meal was this morning at breakfast he had cereal. He reports that it hurts worse when hepushes in and then lets it g o. No history of abdominal surgeries. He does have a past medical history of GERD, chronic kidney disease stage II, common bile duct dilatation, cellulitis, hypomagnesia and hypocalcemia, parathyroidectomy anxiety and depression. Work-up ordered including CBC CMP urinalysis CT abdomen pelvis to rule out appendicitis versus gastroenteritis versus urinary tract infection versus kidney stone. CBC shows no leukocytosis, patient does have some mild anemia with a hemoglobin 11.6 hematocrit 33.4 which is at patient's baseline, CMP shows calcium of 8.4 which is at baseline creatinine 1.4 GFR 69, alk phos [address] abdomen pelvis shows moderate to severe constipation no evidence for a ppendicitis. Does have a couple of enlarged lymph nodes in the right lower quadrant. Discussed home care for constipation with patient, he verbalized understanding. This text was generated using [employer] system, please disregard any oddities of phrase or misspellings. Medical Records Medical records reviewed: Yes I reviewed the patient's medical records. Imaging Data Radiologic Study: Imaging: CT Scan Radiologist's impression: COMPARISON: CT ABDOMEN PELVIS W 03/18/2023 10:21 FINDINGS: Lungs: Visualized lung bases are clear. Liver: Normal. No mass or intrahepatic biliary ductal dilatation. Gallbladder and bile ducts: Normal. No calcified stones. No ductal dilation. Pancreas: Normal. No mass or ductal dilation. Spleen: Normal. No splenomegaly. Adrenal glands: Normal. No mass. Kidneys and ureters: Normal. No hydronephrosis, calculus, cyst or mass. Stomach and bowel: Small bowel is normal. There is a large amount of retained fecal material throughout the colon. No wall thickening or inflammation. Appendix: No evidence of appendicitis. Intraperitoneal space: Unremarkable. No free air. No significant fluid collection. Vasculature: Unremarkable. No abdominal aortic aneurysm or significant atherosclerosis. Lymph nodes: Few small lymph nodes within the right lower quadrant mesentery measuring up to 10 mm. Urinary bladder: No mass or wall thickening. Reproductive: Unremarkable as visualized. Bones/joints: Unremarkable. No acute fracture. No lytic lesion. Soft tissues: Unremarkable. IMPRESSION: Moderately severe constipation. Thank you for allowing us to participate in the care of your patient. Dictated and Authenticated by: Mp Enamorado MD Differential Diagnosis Differential diagnosis: Likely abdominal pain, acute appendicitis, calculus of kidney, constipation, gastroenteritis and small bowel obstruction Medical Records Attestation: I reviewed the patient's medical records. Lab Data Attestation: I reviewed the patient's lab results. 11/16/22 08:23 11/16/22 08:23 HPI General Mode of arrival: ambulatory . Date/Time Provider Initiated Documentation: 11/16/22 07:55 . Limitations to Documentation: no limitations . Information obtained by: patient, RN notes reviewed and old records reviewed . HPI Narrative: 27-year-old male who is well-known to the department presents to the ER with a chief complaint of right lower quadrant abdominal pain. Patient reports that he came on gradually over the last few days worsened last night. Associated with 2 episodes of emesis. He reports his last meal was this morning at breakfast he had cereal. He reports that it hurts worse when hepushes in and then lets it go. No history of abdominal surgeries. He does have a past medical history of GERD, chronic kidney disease stage II, common bile duct dilatation, cellulitis, hypomagnesia and hypocalcemia, parathyroidectomy anxiety and depression. Related Data Home Medications Medication Instructions Recorded Confirmed methadone 10 mg/5 mL oral solution 110 mg PO QAM 11/16/21 11/08/22 acetaminophen 325 mg capsule 650 mg PO Q6H PRN 06/07/22 11/08/22 calcitriol 0.5 mcg capsule 0.5 mcg PO BID #360 caps 06/14/22 11/08/22 calcium carbonate 200 mg calcium 1,000 mg PO BID #0 tabs 06/14/22 11/08/22 (500 mg) chewable tablet (Tums) gabapentin 800 mg tablet 300 mg PO DAILY 09/19/22 11/08/22 ibuprofen 200 mg tablet 600 mg PO PRN PRN 09/19/22 11/08/22 esomeprazole magnesium 20 mg 20 mg PO DAILY #30 caps 09/24/22 11/08/22 capsule,delayed release (Nexium) cyclobenzaprine 10 mg tablet 10 mg PO TID PRN muscle spasm #10 10/09/22 11/08/22 tabs clonazepam 0.5 mg tablet 0.5 mg PO BID PRN anxiety #56 tabs 11/08/22 11/08/22 magnesium gluconate 27 mg 27 mg PO BID #60 tabs 11/08/22 11/08/22 magnesium (500 mg) tablet Previous Rx's Medication Instructions Recorded calcitriol 0.5 mcg capsule 0.5 mcg PO BID #360 caps 06/14/22 calcium carbonate 200 mg calcium 1,000 mg PO BID #0 tabs 06/14/22 (500 mg) chewable tablet (Tums) esomeprazole magnesium 20 mg 20 mg PO DAILY #30 caps 09/24/22 capsule,delayed release (Nexium) cyclobenzaprine 10 mg tablet 10 mg PO TID PRN muscle spasm #10 10/09/22 tabs clonazepam 0.5 mg tablet 0.5 mg PO BID PRN anxiety #56 tabs 11/08/22 magnesium gluconate 27 mg 27 mg PO BID #60 tabs 11/08/22 magnesium (500 mg) tablet Allergies Allergy/AdvReac Type Severity Reaction Status Date / Time codeine Allergy Intermediate Verified 11/08/22 08:28 amoxicillin AdvReac Intermediate Nausea Verified 11/08/22 08:28 General Stated Complaint: Abd Prob ADRIANA: 3 Review of Systems All systems reviewed & are unremarkable except as noted in HPI and below Gastrointestinal Gastrointestinal: Reports abdominal pain, Reports nausea and Reports vomiting Genitourinary Genitourinary: Reports dysuria PFSH All Active Problems (Updated 11/16/22 @ 09:36 by Antoinette Templeton NP) Acute constipation (Acute) Pain, dental (Acute) GERD (gastroesophageal reflux disease) (Chronic) Paresthesia (Acute) Neck pain (Acute) C7 radiculopathy (Acute) Cervical radiculopathy (Acute) Gynecomastia, male (Acute) b/l, per CT (Jul 2022).. Possible 2' Methadone, Clnzpm (?). Surg eval (+)/No further action. CKD (chronic kidney disease) stage 2, GFR 60-89 ml/min (Acute) GFR 64-65, with Hx FLORESITA and GFR < 45 Complex medical condition (Chronic) Serious electrolyte imbalances, with gynecomastia, possible MEN Dx, CKD and anemia with baseline anxiety and Hx PTSD. History of electrolyte imbalance (Acute) Neck pain on left side (Acute) with shoulder, upper back pain.. torticollis, radiating into left hip/leg Pulmonary nodule 1 cm or greater in diameter (Chronic) Therapeutic opioid induced constipation (Acute) Sphincter of Oddi dysfunction (Chronic) Abnormal CT scan, kidney (Acute) Intrahepatic bile duct dilation (Acute) Common bile duct dilatation (Acute) Abdominal pain (Acute) Iatrogenic hypocalcemia (Acute) Multiple endocrine neoplasia type I (Chronic) Chronic constipation (Chronic) Primary hyperparathyroidism (Chronic) Depression (Chronic) Hypocalcemia (Chronic) Hypomagnesemia (Chronic) Depression (Chronic) Suicidal ideation (Acute) Elevated parathyroid hormone (Acute) Family history of coronary arteriosclerosis (Chronic) Father of NM at 50, mother had NM at 42 Severe anxiety with panic (Chronic) Cellulitis (Acute) Medical History Anxiety Depression Family history of multiple endocrine neoplasia, type 1 Hyperlipidemia Hypocalcemia PTSD (post-traumatic stress disorder) Surgical History H/O parathyroidectomy Family History Mother Anxiety Asthma Depression Sister Anxiety Depression Father Cancer lung & stomach Depression Diabetes Hypertension MEN 1 (multiple endocrine neoplasia) Social History Smoking/Tobacco Use Status: Never Smoking risk assessment performed?: Yes Alcohol Intake: never 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 Adopted: No Caregiver/Support person: No Foster care: No Household members: none Housing: house Number of Children: 0 Communication Needs: None Education Level: high school Do you need help understanding health information?: Never 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 and animals: Yes (Ally) Pets and animals: dog(s) Sexually active: No Do you think of yourself as: straight/heterosexual Current gender identity: male What is your relationship status?: How often do you talk on the phone with friends or family?: twice per week How often do you get together with friends or relatives?: never Do you belong to any clubs or organized social groups?: no Panel score (0-1 are the most socially isolated patients): 0 What type of physical activity do you participate in: walking Duration: 15-30 minutes/day Frequency: 5-6 times per week Maryam/Restorationism: Presybeterian Special maryam needs: No Seatbelt use: always Helmet use: Yes Helmet use: always Drive 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 van driver helper: No Do you feel safe at home: Yes Do you feel safe in your relationship?: Yes Exam Narrative Exam Narrative: Constitutional: Alert and oriented x3. Appears stated age. Overweight body habitus. Head: Normocephalic, no trauma. Eyes: Pupils PERRL, Red reflex noted, EOM's intact. Eyelids symmetrical without lesions, discharge, or swelling. ENT: Bilateral TM's WNL, External ear normal to inspection, no mastoid TTP, swelling, or erythema, Nasal turbinates WNL, no nasal discharge. Normal dentition, Posterior pharynx WNL, no exudate. Chest: RRR, Normal S1, S2, distal pulses intact. Resp: Lungs clear to auscultation bilaterally, no wheezes, rales, or rhonchi. Abdomen: Soft, non-distended, Normoactive bowel sounds all 4 quads. Tenderness with RLQ palpation. Musculoskeletal: Normal gait, 5/5 strength to all four extremities. Skin: No suspicious rashes or lesions. Capillary refill less than 2 sec. Neurologic: Cranial nerves II-XII intact. Alert and oriented x 3. Motor: No deficits noted. Sensory: Intact bilaterally all 4 extremities. Reflexes: DTR's intact bilaterally.. Hematologic/Lymphatic: No ecchymosis, no lymphadenopathy. Course Vital Signs Vital signs: Vital Signs Temperature 36.7 C 11/16/22 07:55 Pulse 100 H 11/16/22 07:55 Respiratory Rate 18 11/16/22 07:55 Blood Pressure 116/69 11/16/22 07:55 Pulse Oximetry 98 11/16/22 07:55 Temperature 36.7 C 11/16/22 07:55 Temperature Source Oral 11/16/22 07:55 Pulse 100 H 11/16/22 07:55 Respiratory Rate 18 11/16/22 07:55 Blood Pressure 116/69 11/16/22 07:55 Blood Pressure Position Sitting 11/16/22 07:55 Pulse Oximetry 98 11/16/22 07:55 Oxygen Delivery Method Room Air 11/16/22 07:55 Oxygen Flow Rate 0 11/16/22 07:55 Pain Level 6 11/16/22 07:55
[2022-11-16 08:26] LABS: Abs Immature Grans 0.02 10^3/uL (0.0-0.06); Absolute Basophil Count 0.03 10^3/uL (0.0-0.2); Absolute Eosinophil Count 0.17 10^3/uL (0.0-0.7); Absolute Monocyte Count 0.74 10^3/uL (0.1-0.8); Absolute Neutrophil Count 4.83 10^3/uL (1.2-6.7); Basophils % 0.4; Eosinophils % 2.3; HCT 33.4 % (40.0-50.0); HGB 11.6 g/dL (13.5-17.5); Immature Grans % 0.3; Lymphocytes % 22.7; MCH 31.3 pg (27.0-33.0); MCHC 34.7 % (32.0-36.0); MCV 90 fL (80-95); MPV 10.3 fL (8.0-11.0); Monocytes % 9.9; Neutrophils % 64.4; Platelet Count 248 10^3/uL (130-400); RBC 3.71 10^6/uL (4.36-5.78); RDW 11.5 % (11.8-14.1); RDW-SD 37.3 fL; WBC 7.49 10^3/uL (4.4-10.8)
[2022-11-16] MEDS: Normal Saline - Diluent 50 ML VIAL IJ (08:34)
[2022-11-16] MEDS: Omnipaque 350 MG/ML 100 ML BTL IJ (08:35)
[2022-11-16] MEDS: Normal Saline 1,000 ML 1000 ML IV (08:38)
[2022-11-16] MEDS: Ondansetron 4 MG/2 ML VIAL 2 MG IVP (08:39)
[2022-11-16 08:42] LABS: ALT 39 U/L (16-63); AST 24 U/L (15-37); Albumin 3.1 g/dL (3.4-5.0); Alkaline Phosphatase 128 U/L (46-116); Anion Gap 3.8 mmol/L (3-11); BUN 12 mg/dL (7-18); Bilirubin, Total 0.3 mg/dL (0.2-1.0); CO2 34.2 mmol/L (21.0-32.0); CREATININE 1.4 mg/dL (0.70-1.30); Calcium 8.4 mg/dL (8.5-10.1); Chloride 101 mmol/L (98-107); Estimated GFR 69.77 (mL/min/1.73m2); Glucose 101 mg/dL (74-106); Potassium 3.6 mmol/L (3.5-5.1); Sodium 139 mmol/L (136-145); Total Protein 7.4 g/dL (6.4-8.2)
[2022-11-16] MEDS: Normal Saline Flush 10 ML SYR IVP (08:45)
--- NOTE | 2022-11-16 09:26 | DI.VRAD_ITS ---
PROCEDURE INFORMATION: Exam: CT Abdomen And Pelvis With Contrast Exam date and time: 11/16/2022 8:35 AM Age: 27 years old Clinical indication: Other: Rlq abd pain TECHNIQUE: Imaging protocol: Computed tomography of the abdomen and pelvis with contrast. Radiation optimization: All CT scans at this facility use at least one of these dose optimization techniques: automated exposure control; mA and/or kV adjustment per patient size (includes targeted exams where dose is matched to clinical indication); or iterative reconstruction. Contrast material: OMNIPAQUE 350; Contrast volume: 100 ml; Contrast route: INTRAVENOUS (IV); COMPARISON: CT ABDOMEN PELVIS W 03/18/2023 10:21 FINDINGS: Lungs: Visualized lung bases are clear. Liver: Normal. No mass or intrahepatic biliary ductal dilatation. Gallbladder and bile ducts: Normal. No calcified stones. No ductal dilation. Pancreas: Normal. No mass or ductal dilation. Spleen: Normal. No splenomegaly. Adrenal glands: Normal. No mass. Kidneys and ureters: Normal. No hydronephrosis, calculus, cyst or mass. Stomach and bowel: Small bowel is normal. There is a large amount of retained fecal material throughout the colon. No wall thickening or inflammation. Appendix: No evidence of appendicitis. Intraperitoneal space: Unremarkable. No free air. No significant fluid collection. Vasculature: Unremarkable. No abdominal aortic aneurysm or significant atherosclerosis. Lymph nodes: Few small lymph nodes within the right lower quadrant mesentery measuring up to 10 mm. Urinary bladder: No mass or wall thickening. Reproductive: Unremarkable as visualized. Bones/joints: Unremarkable. No acute fracture. No lytic lesion. Soft tissues: Unremarkable. IMPRESSION: Moderately severe constipation. Dictated and Authenticated by: Mp Enamorado MD. Ordering:CHRYSTAL Curry MD
[2022-11-16 09:53] LABS: Bilirubin Negative (Negative); Blood Negative (Negative); Clarity Clear (Clear); Glucose Negative (Negative); Ketones Negative (Negative); Leukocyte Esterase Negative (Negative); Nitrite Negative (Negative); Urobilinogen 0.2 mg/dL (Up to 0.2); pH 7.5 (5-8)
== END 2022-11-16 09:55 | disposition home or self-care (01) ==
PROVIDERS: Emergency Provider Registered Nurse Emergency; PCP Family Medicine
DX: K59.00 Constipation, unspecified (principal); N18.2 Chronic kidney disease, stage 2 (mild); K21.9 Gastro-esophageal reflux disease without esophagitis
CPT/HCPCS: 80053; 96361; 96374; 99285; 74177; 81003; 85025; 99284; J2405; J3490

== ENCOUNTER 2022-11-20 09:41 | Emergency (ER) | payer OTHER, SELFPAY ==
[2022-11-20 09:45] VITALS: BP 130/82; PULSE 76; RESP 18; O2SAT 98
--- NOTE | 2022-11-20 09:45 | DI.US_ITS ---
Exam(s) US ABDOMEN LIMITED EXAM: US ABDOMEN LIMITED CLINICAL HISTORY: epigastric, ruq pain, eval GB TECHNIQUE: Ultrasound abdomen performed using standard protocol. COMPARISON: US US ABDOMEN LIMITED from 03/07/[address] ABDOMEN PELVIS W from 11/16/2022 FINDINGS: PANCREAS: Normal where visualized. LIVER: Normal. Hepatopedal flow in the Portal Vein. The liver measures in 18.2 cm length. GALLBLADDER:The gallbladder is contracted which limits evaluation. No definite stones are appreciate d. BILIARY SYSTEM: The common bile duct could not be visualized due to overlying bowel gas. No intrahep atic biliary ductal dilation. GUERRA'S SIGN: Negative. RIGHT KIDNEY: Kidney is normal in size. No evidence of renal calculi. No evidence of hydronephrosis. No renal mass or cyst identified. ASCITES: None seen. IMPRESSION: 1. Examination limited by overlying bowel gas and contracted gallbladder. 2. No definite gallstones are seen. 3. Mild hepatomegaly. DATA REPOSITORY:
--- NOTE | 2022-11-20 09:50 | ED.GENADUL_ITS ---
Discharge Plan Disposition Patient Disposition: Home Condition: Good Discharge Details Clinical Impression: Biliary colic Primary Care Provider: Brendon Vivar ED Provider: Richy Eagle Home Meds and New Rx's Prescriptions: No Action acetaminophen 325 mg capsule 650 mg PO Q6H PRN methadone 10 mg/5 mL solution 110 mg PO QAM esomeprazole magnesium [Nexium] 20 mg capsule,delayed release(DR/EC) 20 mg PO DAILY Qty: 30 0RF clonazepam 0.5 mg tablet 0.5 mg PO BID PRN (Reason: anxiety) Qty: 56 0RF magnesium gluconate 27 mg magnesium (500 mg) tablet 27 mg PO BID Qty: 60 3RF calcium carbonate [Tums] 200 mg calcium (500 mg) tablet,chewable 1,000 mg PO BID Qty: 0 0RF Hold Instructions: Resume on 06/15/22. calcitriol 0.5 mcg capsule 0.5 mcg PO BID Qty: 360 3RF Hold Instructions: Resume on 06/15/22. gabapentin 800 mg tablet 300 mg PO DAILY ibuprofen 200 mg Tablet 600 mg PO PRN PRN cyclobenzaprine 10 mg tablet 10 mg PO TID PRN (Reason: muscle spasm) Qty: 10 0RF Discharge Instructions Instructions: Biliary Colic (ED) Additional Instructions: At this time your laboratory work-up is stable and unremarkable. Your ultrasound does show evidence of a contracted gallbladder which can sometimes cause spasm and symptoms identical to what you are having. Please take Tylenol and Motrin as needed if your pain returns. Avoid any fatty foods, greasy foods, or dairy products. If the symptoms recur you may need further assessment, and potential removal of your gallbladder in the future if it becomes a persistent recurrence. If you notice any worsening of your symptoms, or any new symptoms such as vomiting, diarrhea, fever, chills, shortness of breath, chest pain, numbness, weakness, or fainting , please return immediately to the emergency department for reevaluation. Please follow up with your primary care provider as soon as possible for reassessment and reevaluation. As always, it was a pleasure participating in your medical care today. Referrals: Brendon Vivar DO [Primary Care Provider] - Discharge Data Discharge Date/Time-TO BE ENTERED AT DEPARTURE: 11/20/22 13:07 Medical Decision Making This is a 26-year-old male with a past medical history significant for anxiety, depression, high cholesterol, men type I, multiple electrolyte abnormalities with subsequent parathyroidectomy on 03/26/[address] [facility], PTSD who presents today for epigastric pain. Patient states that he woke up this morning and felt fine, he had a bowl of Cheerios with whole milk, and shortly thereafter eating he developed immediate severe right upper quadrant and epigastric pain. He describes it as aching and stabbing. Does not radiate anywhere else. Does not radiate to his spine or back. He denies any vomiting but admits to nausea. No relieving factors. He states he has been taking his other medications regularly as directed. He has been avoiding any spicy foods. No other complaints at this time. He has never had symptoms like this before. Exam demonstrates evidence of right upper quadrant epigastric tenderness on palpation. Negative Cedillo sign. No pain to McBurney's point. No guarding or rebound. Mucous membranes moist. Differential includes biliary colic, pancreatitis. Symptoms appear inconsistent with cardiac or pulmonary etiology. No signs of an acute surgical abdomen. We will treat his pain, get an ultrasound of the gallbladder, check for pancreatitis, monitor closely and reassess. 1:01 PM Laboratory work-up has returned, no significant abnormalities. Bilirubin normal, renal function normal, transaminases normal, lipase normal. Urinalysis negative. On reassessment patient feels much better, symptoms resolved, he shows no evidence of an acute surgical abdomen at this time. He feels well. Ultrasound has returned and there is evidence of a contracted gallbladder but no other significant abnormalities per radiology/ultrasonography. On reassessment with the patient's resolved clinical symptomatology, I do suspect that he had a component of mild biliary colic potentially. He otherwise feels well. Recommend avoidance of dairy foods, greasy foods, fatty foods, and a more strict adherence to a high-fiber low-fat based diet. Discussed red flags for which to return. I have extensively reviewed the treatment plan and discharge instructions with the patient. I have addressed all patient concerns at this time. The patient was made aware of what symptoms to monitor for that would warrant a return to the emergency department. Discussed the plan with the patient, they demonstrate verbal understanding and agreement with our assessment and plan at this time. The documentation in this chart was dictated using [employer] dictation software. Please excuse any dictation errors. FINDINGS: PANCREAS: Normal where visualized. LIVER: Normal. Hepatopedal flow in the Portal Vein. The liver measures in 18.2 cm length. GALLBLADDER:The gallbladder is contracted which limits evaluation. No definite stones are appreciated. BILIARY SYSTEM: The common bile duct could not be visualized due to overlying bowel gas. No intrahepatic biliary ductal dilation. CEDILLO'S SIGN: Negative. RIGHT KIDNEY: Kidney is normal in size. No evidence of renal calculi. No evidence of hydronephrosis. No renal mass or cyst identified. ASCITES: None seen. IMPRESSION: 1. Examination limited by overlying bowel gas and contracted gallbladder. 2. No definite gallstones are seen. 3. Mild hepatomegaly HPI General Date/Time Provider Initiated Documentation: 11/20/22 09:42 . HPI Narrative: This is a 26-year-old male with a past medical history significant for anxiety, depression, high cholesterol, men type I, multiple electrolyte abnormalities with subsequent parathyroidectomy on 03/26/[address] [facility] [place], [facility] who presents today for epigastric pain. Patient states that he woke up this morning and felt fine, he had a bowl of Cheerios with whole milk, and shortly thereafter eating he developed immediate severe right upper quadrant and epigastric pain. He describes it as aching and stabbing. Does not radiate anywhere else. Does not radiate to his spine or back. He denies any vomiting but admits to nausea. No relieving factors. He states he has been taking his other medications regularly as directed. He has been avoiding any spicy foods. No other complaints at this time. He has never had symptoms like this before. Related Data Home Medications Medication Instructions Recorded Confirmed methadone 10 mg/5 mL oral solution 110 mg PO QAM 11/16/21 11/20/22 acetaminophen 325 mg capsule 650 mg PO Q6H PRN 06/07/22 11/20/22 calcitriol 0.5 mcg capsule 0.5 mcg PO BID #360 caps 06/14/22 11/20/22 calcium carbonate 200 mg calcium 1,000 mg PO BID #0 tabs 06/14/22 11/20/22 (500 mg) chewable tablet (Tums) gabapentin 800 mg tablet 300 mg PO DAILY 09/19/22 11/20/22 ibuprofen 200 mg tablet 600 mg PO PRN PRN 09/19/22 11/20/22 esomeprazole magnesium 20 mg 20 mg PO DAILY #30 caps 09/24/22 11/20/22 capsule,delayed release (Nexium) cyclobenzaprine 10 mg tablet 10 mg PO TID PRN muscle spasm #10 10/09/22 11/20/22 tabs clonazepam 0.5 mg tablet 0.5 mg PO BID PRN anxiety #56 tabs 11/08/22 11/20/22 magnesium gluconate 27 mg 27 mg PO BID #60 tabs 11/08/22 11/20/22 magnesium (500 mg) tablet Previous Rx's Medication Instructions Recorded calcitriol 0.5 mcg capsule 0.5 mcg PO BID #360 caps 06/14/22 calcium carbonate 200 mg calcium 1,000 mg PO BID #0 tabs 06/14/22 (500 mg) chewable tablet (Tums) esomeprazole magnesium 20 mg 20 mg PO DAILY #30 caps 09/24/22 capsule,delayed release (Nexium) cyclobenzaprine 10 mg tablet 10 mg PO TID PRN muscle spasm #10 10/09/22 tabs clonazepam 0.5 mg tablet 0.5 mg PO BID PRN anxiety #56 tabs 11/08/22 magnesium gluconate 27 mg 27 mg PO BID #60 tabs 11/08/22 magnesium (500 mg) tablet Allergies Allergy/AdvReac Type Severity Reaction Status Date / Time codeine Allergy Intermediate Verified 11/20/22 09:47 amoxicillin AdvReac Intermediate Nausea Verified 11/20/22 09:47 General Stated Complaint: Abd Prob ADRIANA: 3 Review of Systems All systems reviewed & are unremarkable except as noted in HPI and below PFSH All Active Problems (Updated 11/21/22 @ 00:08 by HAMMAD WILEY) Acute constipation (Acute) Biliary colic (Acute) Pain, dental (Acute) GERD (gastroesophageal reflux disease) (Chronic) C7 radiculopathy (Acute) Cervical radiculopathy (Acute) Gynecomastia, male (Acute) b/l, per CT (Jul 2022).. Possible 2' Methadone, Clnzpm (?). Surg eval (+)/No further action. CKD (chronic kidney disease) stage 2, GFR 60-89 ml/min (Acute) GFR 64-65, with Hx FLORESITA and GFR < 45 Complex medical condition (Chronic) Serious electrolyte imbalances, with gynecomastia, possible MEN Dx, CKD and anemia with baseline anxiety and Hx PTSD. History of electrolyte imbalance (Acute) Neck pain on left side (Acute) with shoulder, upper back pain.. torticollis, radiating into left hip/leg Pulmonary nodule 1 cm or greater in diameter (Chronic) Therapeutic opioid induced constipation (Acute) Sphincter of Oddi dysfunction (Chronic) Abnormal CT scan, kidney (Acute) Intrahepatic bile duct dilation (Acute) Common bile duct dilatation (Acute) Abdominal pain (Acute) Iatrogenic hypocalcemia (Acute) Multiple endocrine neoplasia type I (Chronic) Chronic constipation (Chronic) Primary hyperparathyroidism (Chronic) Depression (Chronic) Hypocalcemia (Chronic) Hypomagnesemia (Chronic) Depression (Chronic) Suicidal ideation (Acute) Elevated parathyroid hormone (Acute) Family history of coronary arteriosclerosis (Chronic) Father of MS at 50, mother had MS at 42 Severe anxiety with panic (Chronic) Cellulitis (Acute) Medical History Anxiety Depression Family history of multiple endocrine neoplasia, type 1 Hyperlipidemia Hypocalcemia PTSD (post-traumatic stress disorder) Surgical History H/O parathyroidectomy Family History Mother Anxiety Asthma Depression Sister Anxiety Depression Father Cancer lung & stomach Depression Diabetes Hypertension MEN 1 (multiple endocrine neoplasia) Social History Smoking/Tobacco Use Status: Never Smoking risk assessment performed?: Yes Alcohol Intake: never 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 Adopted: No Caregiver/Support person: No Foster care: No Household members: none Housing: house Number of Children: 0 Communication Needs: None Education Level: high school Do you need help understanding health information?: Never 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 and animals: Yes (Ally) Pets and animals: dog(s) Sexually active: No Do you think of yourself as: straight/heterosexual Current gender identity: male What is your relationship status?: How often do you talk on the phone with friends or family?: twice per week How often do you get together with friends or relatives?: never Do you belong to any clubs or organized social groups?: no Panel score (0-1 are the most socially isolated patients): 0 What type of physical activity do you participate in: walking Duration: 15-30 minutes/day Frequency: 5-6 times per week Maryam/Mandaeism: Yazdanism Special maryam needs: No Seatbelt use: always Helmet use: Yes Helmet use: always 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 3.ENT: Atraumatic external nose and ears. Moist MM. Neck: Symmetric, trachea midline, No thyromegaly. 4.CVS: +S1/S2, No murmurs or gallops. Peripheral pulses 2+ and equal in all extremities. Brisk capillary refill in all extremities. 5.RESP: Unlabored respiratory effort. Clear to auscultation bilaterally. No wheezes rales or rhonchi 6.GI: Soft, nondistended, mild reproducible right upper quadrant and epigastric tenderness on palpation. Negative Cedillo sign. No pain at McBurney's point. No other guarding or rebound. 7.MSK: Normocephalic/Atraumatic, Extremities w/o deformity or ttp No cyanosis or clubbing, Normal movement of all extremities 8.Skin: Warm, Dry. No rashes or lesions. 9.Neuro: cloth mercerizer back tender II-XII grossly intact. Sensation grossly intact, no focal neurologic deficits. 10.Psych: (AAO) x3. Appropriate mood and affect Course Vital Signs Vital signs: Vital Signs Pulse 76 11/20/22 09:45 Respiratory Rate 18 11/20/22 09:45 Blood Pressure 130/82 11/20/22 09:45 Pulse Oximetry 98 11/20/22 09:45 Pulse 76 11/20/22 09:45 Respiratory Rate 18 11/20/22 09:45 Blood Pressure 130/82 11/20/22 09:45 Blood Pressure Position Sitting 11/20/22 09:45 Pulse Oximetry 98 11/20/22 09:45 Oxygen Delivery Method Room Air 11/20/22 09:45 Oxygen Flow Rate 0 11/20/22 09:45 Pain Level 7 11/20/22 09:45
[2022-11-20 10:07] LABS: Abs Immature Grans 0.03 10^3/uL (0.0-0.06); Absolute Basophil Count 0.04 10^3/uL (0.0-0.2); Absolute Eosinophil Count 0.34 10^3/uL (0.0-0.7); Absolute Lymphocyte Count 3.03 10^3/uL (1.2-3.4); Absolute Monocyte Count 1.02 10^3/uL (0.1-0.8); Absolute Neutrophil Count 4.03 10^3/uL (1.2-6.7); Basophils % 0.5; HCT 34.9 % (40.0-50.0); HGB 12.2 g/dL (13.5-17.5); Immature Grans % 0.4; Lymphocytes % 35.7; MCH 31.7 pg (27.0-33.0); MCV 91 fL (80-95); MPV 10.5 fL (8.0-11.0); Neutrophils % 47.4; Platelet Count 267 10^3/uL (130-400); RBC 3.85 10^6/uL (4.36-5.78); RDW 11.9 % (11.8-14.1); RDW-SD 38.6 fL; WBC 8.49 10^3/uL (4.4-10.8)
[2022-11-20] MEDS: Ketorolac 15 MG/ML VIAL IVP (10:14)
[2022-11-20] MEDS: MORPHine 10 MG/ML VIAL 4 MG IVP (10:14)
[2022-11-20] MEDS: Ondansetron 4 MG/2 ML VIAL IVP (10:15)
[2022-11-20 10:19] LABS: Lipase 25 U/L (16-77)
[2022-11-20] MEDS: Mylanta Suspension 30 ML CUP (10:24)
[2022-11-20 10:25] LABS: ALT 39 U/L (16-63); AST 31 U/L (15-37); Albumin 3.2 g/dL (3.4-5.0); Alkaline Phosphatase 124 U/L (46-116); Anion Gap 2.8 mmol/L (3-11); BUN 17 mg/dL (7-18); Bilirubin, Total 0.2 mg/dL (0.2-1.0); CO2 34.2 mmol/L (21.0-32.0); CREATININE 1.3 mg/dL (0.70-1.30); Calcium 9.3 mg/dL (8.5-10.1); Chloride 101 mmol/L (98-107); Estimated GFR 76.26 (mL/min/1.73m2); Glucose 99 mg/dL (74-106); Potassium 3.9 mmol/L (3.5-5.1); Sodium 138 mmol/L (136-145); Total Protein 7.6 g/dL (6.4-8.2)
[2022-11-20 10:45] LABS: Bilirubin Negative (Negative); Blood Negative (Negative); Clarity Clear (Clear); Glucose Negative (Negative); Ketones Negative (Negative); Leukocyte Esterase Negative (Negative); Nitrite Negative (Negative); Specific Gravity 1.015 (1.005-1.025); Urobilinogen 0.2 mg/dL (Up to 0.2)
[2022-11-20] MEDS: Acetaminophen 500 MG TAB 1000 MG PO (12:12)
[2022-11-20 12:28] VITALS: BP 102/63; PULSE 73; TEMP 36.4; O2SAT 91
== END 2022-11-20 13:07 | disposition home or self-care (01) ==
PROVIDERS: Emergency Provider Student in an Organized Health Care Education/Training Program; PCP Family Medicine
DX: K80.50 Calculus of bile duct without cholangitis or cholecystitis without obstruction (principal)
CPT/HCPCS: 36415; 80053; 83690; 96374; 96375; 99284; 76705; 81003; 85025; J1885; J2270; J2405

== ENCOUNTER 2022-11-27 02:59 | Emergency (ER) | payer OTHER, SELFPAY ==
--- NOTE | 2022-11-27 03:00 | RT.EKG_ITS ---
APPROVED REPORT Exam: Resting ECG Reason for Exam: hx lonnie chaves Patient Location: E HR:78 bpm ECG Measurements Heart Rate 78 AXIS ND 187 P 44 QRSd 98 QRS 58 QT 414 T 34 QTc 472 Conclusion Sinus rhythm...normal P axis, V-rate 60- 99
[2022-11-27 03:02] VITALS: PULSE 97; RESP 16; TEMP 36.8; O2SAT 99
--- NOTE | 2022-11-27 03:18 | W.ED.GENAD ---
Discharge Plan Disposition Patient Disposition: Home Condition: Good Discharge Details Clinical Impression: Anxiety Primary Care Provider: Brendon Vivar ED Provider: Terri Andrade Home Meds and New Rx's Prescriptions: Continued acetaminophen 325 mg capsule 650 mg PO Q6H PRN methadone 10 mg/5 mL solution 110 mg PO QAM esomeprazole magnesium [Nexium] 20 mg capsule,delayed release(DR/EC) 20 mg PO DAILY Qty: 30 0RF clonazepam 0.5 mg tablet 0.5 mg PO BID PRN (Reason: anxiety) Qty: 56 0RF magnesium gluconate 27 mg magnesium (500 mg) tablet 27 mg PO BID Qty: 60 3RF calcium carbonate [Tums] 200 mg calcium (500 mg) tablet,chewable 1,000 mg PO BID Qty: 0 0RF Hold Instructions: Resume on 06/15/22. calcitriol 0.5 mcg capsule 0.5 mcg PO BID Qty: 360 3RF Hold Instructions: Resume on 06/15/22. gabapentin 800 mg tablet 300 mg PO DAILY ibuprofen 200 mg Tablet 600 mg PO PRN PRN cyclobenzaprine 10 mg tablet 10 mg PO TID PRN (Reason: muscle spasm) Qty: 10 0RF Discharge Instructions Instructions: Anxiety (ED) Medical Decision Making Patient was updated on his test results. He has IV fluid infusing and his BUN is a little bit elevated so this should help. He was reassured that his electrolytes were normal. I think he was just anxious when he came in. We will give him a small amount of Valium because he says he still feels like his feet hurt and he typically uses clonazepam for anxiety. Medical Records Medical records reviewed: Yes I reviewed the patient's medical records. Lab Data Lab results reviewed: Yes I reviewed the patient's lab results. Lab results narrative: Patient's electrolytes are all within normal limits. His albumin is a little bit low and this is baseline. ECG Data Attestation: I personally reviewed and interpreted this ECG (s) as follows: (NSR 80, nl intervals and EKG) HPI General Date/Time Provider Initiated Documentation: 11/27/22 03:01. HPI Narrative: This 27-year-old male patient with a history of anxiety, depression, multiple endocrine neoplasia type I, electrolyte abnormality, parathyroidectomy, and PTSD presents with a chief complaint of hand and foot spasm that began several hours ago. The patient states this happened previously when his calcium got really low. He states that this was really scary and he appears anxious when he talks about it. He was reassured that he is in the emergency department and is safe here with us. He states that earlier he felt like he was having some vague shortness of breath but this may be from his anxiety. He appears quite comfortable and when I ask him about this he says that maybe he needed to make a little bit more of an effort to get a good breath. He also states that he has some very mild belly cramping. He has had no fever, chills, chest pain, shortness of breath, nausea, vomiting, diarrhea or symptoms. He has no other focal neurologic complaints. Related Data Home Medications Medication Instructions Recorded Confirmed methadone 10 mg/5 mL oral solution 110 mg PO QAM 11/16/21 11/20/22 acetaminophen 325 mg capsule 650 mg PO Q6H PRN 06/07/22 11/20/22 calcitriol 0.5 mcg capsule 0.5 mcg PO BID #360 caps 06/14/22 11/20/22 calcium carbonate 200 mg calcium 1,000 mg PO BID #0 tabs 06/14/22 11/20/22 (500 mg) chewable tablet (Tums) gabapentin 800 mg tablet 300 mg PO DAILY 09/19/22 11/20/22 ibuprofen 200 mg tablet 600 mg PO PRN PRN 09/19/22 11/20/22 esomeprazole magnesium 20 mg 20 mg PO DAILY #30 caps 09/24/22 11/20/22 capsule,delayed release (Nexium) cyclobenzaprine 10 mg tablet 10 mg PO TID PRN muscle spasm #10 10/09/22 11/20/22 tabs clonazepam 0.5 mg tablet 0.5 mg PO BID PRN anxiety #56 tabs 11/08/22 11/20/22 magnesium gluconate 27 mg 27 mg PO BID #60 tabs 11/08/22 11/20/22 magnesium (500 mg) tablet Previous Rx's Medication Instructions Recorded calcitriol 0.5 mcg capsule 0.5 mcg PO BID #360 caps 06/14/22 calcium carbonate 200 mg calcium 1,000 mg PO BID #0 tabs 06/14/22 (500 mg) chewable tablet (Tums) esomeprazole magnesium 20 mg 20 mg PO DAILY #30 caps 09/24/22 capsule,delayed release (Nexium) cyclobenzaprine 10 mg tablet 10 mg PO TID PRN muscle spasm #10 10/09/22 tabs clonazepam 0.5 mg tablet 0.5 mg PO BID PRN anxiety #56 tabs 11/08/22 magnesium gluconate 27 mg 27 mg PO BID #60 tabs 11/08/22 magnesium (500 mg) tablet Allergies Allergy/AdvReac Type Severity Reaction Status Date / Time codeine Allergy Intermediate Verified 11/20/22 09:47 amoxicillin AdvReac Intermediate Nausea Verified 11/20/22 09:47 General Stated Complaint: GenMedical ADRIANA: 3 Review of Systems Constitutional Constitutional: Denies chills, Denies fever(s), Denies headache(s) and Denies weakness Eyes Eyes: Denies diplopia and Reports other (no redness) ENT Ears, Nose, Mouth, and Throat: Denies otalgia, Denies headache(s), Denies nasal congestion, Denies nasal discharge, Denies neck pain and Denies sore throat Cardiovascular Cardiovascular: Denies chest pain, Denies palpitations and Denies dyspnea Respiratory Respiratory: Denies cough and Denies dyspnea Gastrointestinal Gastrointestinal: Denies abdominal pain, Denies diarrhea, Denies nausea and Denies vomiting Genitourinary Genitourinary: Denies difficulty urinating and Denies dysuria Musculoskeletal Musculoskeletal: Denies myalgias, Denies muscle weakness, Denies neck pain, Denies numbness and Reports other (edema) Integumentary/Breasts Skin/Breast: Denies change in pigmentation and Denies rash Neurologic Neurologic: Denies headache(s), Denies numbness, Denies weakness and Reports other (Spasm in hands and feet) Endocrine Endocrine: Denies palpitations PFSH All Active Problems (Updated 11/27/22 @ 04:48 by Terri Andrade MD) Acute constipation (Acute) Biliary colic (Acute) Anxiety (Chronic) GERD (gastroesophageal reflux disease) (Chronic) C7 radiculopathy (Acute) Cervical radiculopathy (Acute) Gynecomastia, male (Acute) b/l, per CT (Jul 2022).. Possible 2' Methadone, Clnzpm (?). Surg eval (+)/No further action. CKD (chronic kidney disease) stage 2, GFR 60-89 ml/min (Acute) GFR 64-65, with Hx FLORESITA and GFR < 45 Complex medical condition (Chronic) Serious electrolyte imbalances, with gynecomastia, possible MEN Dx, CKD and anemia with baseline anxiety and Hx PTSD. History of electrolyte imbalance (Acute) Neck pain on left side (Acute) with shoulder, upper back pain.. torticollis, radiating into left hip/leg Pulmonary nodule 1 cm or greater in diameter (Chronic) Therapeutic opioid induced constipation (Acute) Sphincter of Oddi dysfunction (Chronic) Abnormal CT scan, kidney (Acute) Intrahepatic bile duct dilation (Acute) Common bile duct dilatation (Acute) Abdominal pain (Acute) Iatrogenic hypocalcemia (Acute) Multiple endocrine neoplasia type I (Chronic) Chronic constipation (Chronic) Primary hyperparathyroidism (Chronic) Depression (Chronic) Hypocalcemia (Chronic) Hypomagnesemia (Chronic) Depression (Chronic) Suicidal ideation (Acute) Elevated parathyroid hormone (Acute) Family history of coronary arteriosclerosis (Chronic) Father of NH at 50, mother had NH at 42 Severe anxiety with panic (Chronic) Cellulitis (Acute) Medical History Anxiety Depression Family history of multiple endocrine neoplasia, type 1 Hyperlipidemia Hypocalcemia PTSD (post-traumatic stress disorder) Surgical History H/O parathyroidectomy Family History Mother Anxiety Asthma Depression Sister Anxiety Depression Father Cancer lung & stomach Depression Diabetes Hypertension MEN 1 (multiple endocrine neoplasia) Social History Smoking/Tobacco Use Status: Never Smoking risk assessment performed?: Yes Alcohol Intake: never 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 Adopted: No Caregiver/Support person: No Foster care: No Household members: none Housing: house Number of Children: 0 Communication Needs: None Education Level: high school Do you need help understanding health information?: Never 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 and animals: Yes (Ally) Pets and animals: dog(s) Sexually active: No Do you think of yourself as: straight/heterosexual Current gender identity: male What is your relationship status?: How often do you talk on the phone with friends or family?: twice per week How often do you get together with friends or relatives?: never Do you belong to any clubs or organized social groups?: no Panel score (0-1 are the most socially isolated patients): 0 What type of physical activity do you participate in: walking Duration: 15-30 minutes/day Frequency: 5-6 times per week Maryam/Mandaeism: Restorationist Special maryam needs: No Seatbelt use: always Helmet use: Yes Helmet use: always 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 Exam Const General: no acute distress, well developed, well groomed, not in acute distress and other (Mildly anxious) Nutritional Appearance: well nourished Orientation: alert and oriented x3 HENMT Head: normocephalic and atraumatic Ears: external ears normal Mouth: oropharynx normal and moist mucous membranes Throat: posterior oropharynx normal Eyes Conjunctivae: conjunctivae normal Neck Neck: full ROM and supple Chest Chest: normal inspection of the chest Resp Effort & Inspection: normal respiratory effort Auscultation: clear to auscultation bilaterally Cardio Rate: regular rate Rhythm: regular rhythm Heart Sounds: no murmurs and no rubs GI Inspection: normal to inspection Palpation: soft, nontender and other (non distended) Auscultation: normal bowel sounds Skin General skin exam: no rashes or lesions noted and other (pink, warm, dry) Neuro General: patient alert, patient awake and patient oriented x3 Speech: speech normal Motor: other (CHISHOLM) Sensory Exam: no sensory deficits noted Extrem General: normal to inspection, full ROM and pedal edema present Psych Mental Status: mental status grossly normal Speech and Movement: speech and movement normal Affect: normal affect Course Vital Signs Vital signs: Vital Signs Temperature 36.8 C 11/27/22 03:02 Pulse 97 H 11/27/22 03:02 Respiratory Rate 16 11/27/22 03:02 Pulse Oximetry 99 11/27/22 03:02 Temperature 36.8 C 11/27/22 03:02 Temperature Source Oral 11/27/22 03:02 Pulse 97 H 11/27/22 03:02 Respiratory Rate 16 11/27/22 03:02 Blood Pressure Position Supine 06/14/23 03:02 Pulse Oximetry 99 11/27/22 03:02 Oxygen Delivery Method Room Air 11/27/22 03:02 Oxygen Flow Rate 0 11/27/22 03:02 Pain Level 5 11/27/22 03:02
[2022-11-27 04:09] LABS: HGB 11.2 g/dL (13.5-17.5); MCH 31.4 pg (27.0-33.0); MCV 90 fL (80-95); MPV 11.1 fL (8.0-11.0); Platelet Count 219 10^3/uL (130-400); RBC 3.57 10^6/uL (4.36-5.78); RDW 11.8 % (11.8-14.1); RDW-SD 38.4 fL; WBC 7.71 10^3/uL (4.4-10.8)
[2022-11-27 04:22] LABS: ALT 36 U/L (16-63); AST 23 U/L (15-37); Albumin 3.2 g/dL (3.4-5.0); Alkaline Phosphatase 111 U/L (46-116); Anion Gap 6.4 mmol/L (3-11); BUN 20 mg/dL (7-18); Bilirubin, Total 0.2 mg/dL (0.2-1.0); CO2 30.6 mmol/L (21.0-32.0); CREATININE 1.3 mg/dL (0.70-1.30); Calcium 9.4 mg/dL (8.5-10.1); Chloride 101 mmol/L (98-107); Estimated GFR 76.26 (mL/min/1.73m2); Glucose 100 mg/dL (74-106); Magnesium 1.8 mg/dL (1.8-2.4); Sodium 138 mmol/L (136-145); Total Protein 7.7 g/dL (6.4-8.2)
[2022-11-27 04:33] LABS: TSH 2.19 uIU/mL (0.36-3.74)
[2022-11-27] MEDS: diazePAM 10 MG/2 ML SYR 2.5 MG IVP (04:45)
[2022-11-27] MEDS: Normal Saline 1,000 ML 1000 ML IV (05:27)
--- NOTE | 2022-11-27 05:28 | NUR.NOTE ---
@0400- Difficult PIV start after x3 attempts w/ US. MD Raymond rissa labs and attempted US guided PIV as well w/o success. 20g R foot IV started.
== END 2022-11-27 05:25 | disposition home or self-care (01) ==
PROVIDERS: Emergency Provider Emergency Medicine; PCP Family Medicine
DX: F41.9 Anxiety disorder, unspecified (principal); F20.0 Paranoid schizophrenia
CPT/HCPCS: 80053; 85027; 93005; 96361; 96374; 99284; 83735; 84443; 93010; J3360

== ENCOUNTER 2022-12-01 13:18 | Emergency (ER) | payer OTHER, SELFPAY ==
[2022-12-01 13:25] VITALS: BP 121/82; PULSE 83; RESP 16; TEMP 37.2; O2SAT 97
--- NOTE | 2022-12-01 13:45 | DI.CT_ITS ---
Exam(s) CT HEAD WO EXAM: CT HEAD WO CLINICAL HISTORY: head injury. TECHNIQUE: Imaging Protocol: Axial computed tomography images with coronal and sagittal reformatted images were created and reviewed COMPARISON: CT CT HEAD CERVICAL SPINE WO from 10/03/2022 FINDINGS: There are no skull fractures. There is some mucosal thickening left maxillary sinus. No associated f luid level. Other paranasal sinuses are clear. There is no evidence of intracranial hemorrhage, mass effect, or shift of midline structures. There are no extra-axial fluid collections. The ventricles are not enlarged or shifted and there is no blo od within the ventricular system nor within the basal cisterns. IMPRESSION: No acute intracranial findings on this noninfused CT scan of the brain. RADIATION DOSE DELIVERED: 802.6mGy.cm Total DLP DATA REPOSITORY: All CT scans at this facility are submitted to the National Radiology Data Registry (NRDR) Dose Index Registry (DIR) with the [employer] ([employer]). RADIATION OPTIMIZATION: All CT scans at this facility use at least one of these dose optimization te chniques: automated exposure control; mA and/or kV adjustment per patient size (includes targeted exa ms where dose is matched to clinical indication); or iterative reconstruction.
[2022-12-01] MEDS: Ondansetron O.D.T. 4 MG TABEF PO (14:17)
[2022-12-01] MEDS: Acetaminophen 500 MG TAB 1000 MG PO (14:17)
--- NOTE | 2022-12-01 14:43 | ED.GENADUL_ITS ---
Discharge Plan Disposition Patient Disposition: Home Discharge Details Clinical Impression: Concussion, Anxiety Primary Care Provider: Brendon Vivar ED Provider: Crow Gama Home Meds and New Rx's Prescriptions: Continued acetaminophen 325 mg capsule 650 mg PO Q6H PRN methadone 10 mg/5 mL solution 110 mg PO QAM esomeprazole magnesium [Nexium] 20 mg capsule,delayed release(DR/EC) 20 mg PO DAILY Qty: 30 0RF clonazepam 0.5 mg tablet 0.5 mg PO BID PRN (Reason: anxiety) Qty: 56 0RF magnesium gluconate 27 mg magnesium (500 mg) tablet 27 mg PO BID Qty: 60 3RF calcium carbonate [Tums] 200 mg calcium (500 mg) tablet,chewable 1,000 mg PO BID Qty: 0 0RF Hold Instructions: Resume on 06/15/22. calcitriol 0.5 mcg capsule 0.5 mcg PO BID Qty: 360 3RF Hold Instructions: Resume on 06/15/22. gabapentin 800 mg tablet 300 mg PO DAILY ibuprofen 200 mg Tablet 600 mg PO PRN PRN cyclobenzaprine 10 mg tablet 10 mg PO TID PRN (Reason: muscle spasm) Qty: 10 0RF Discharge Instructions Instructions: Concussion (ED) Additional Instructions: Please continue to take acetaminophen/Tylenol no more than 4000 mg/day. You may use the Zofran that you already have at home as directed on packaging. Please stay well-hydrated and get plenty of rest over the next couple days and follow- up with primary care provider as needed for reassessment. Return to the ER as needed for recheck for any significant worsening of symptoms Stand Alone Forms: Work Release Referrals: Brendon Vivar DO [Primary Care Provider] - Discharge Data Discharge Date/Time-TO BE ENTERED AT DEPARTURE: 12/01/22 16:36 Medical Decision Making Patient presenting to the emergency department for chief complaint of head injury. Patient reports yesterday he stood up and hit the top of his head with a fair amount of force on a cabinet. Patient states right afterwards he only had local tenderness where the point of impact was. Later in the evening then he began having significant headache with nausea and vomiting along with some photophobia and generalized blurred vision. Patient denies any neck pain, syncope, loss of consciousness, other pain or discomfort. Physical exam is unremarkable except for noted photophobia on exam. Patient is well familiar to myself and has significant history of anxiety about health and I have suspicion this is more of a mild head injury with potential concussion but I do feel symptoms are somewhat being obscured by his anxiety magnifying situation. Discussed with patient risk versus benefit of head CT and patient said do what ever it takes. Attempted to use CT head imaging rules for trauma but because of patient's report of excessive vomiting and severe headache we will proceed with CT imaging given the patient already knows risk versus benefit of further imaging given that he has had multiple images in the past. Pending results will give Zofran and acetaminophen. Reviewed CT imaging of the head along with radiologist interpretation and no acute findings were noted. Reassessed patient and states significant improvement of pain discomfort and nausea. We will have patient continue Zofran and acetaminophen at home which she states he already has some Zofran that he just had not used. Do not feel that patient needs lumbar puncture for any further evaluation of acute intercranial hemorrhage given low mechanism of injury to begin with. Patient encouraged to monitor symptoms return for any new or worsening otherwise to follow-up with PCP as needed. After discussion of diagnosis and plan of care patient has no further needs, questions, or concerns and states clear understanding to return to the emergency department for any worsening symptoms. This documentation was generated using [employer] dictation system, please disregard any oddities of phrase or misspellings. Imaging Data Radiologic Study: Imaging: CT Scan Radiologist's impression: Exam(s) PROCEDURE INFORMATION: Exam: CT Head Without Contrast Exam date and time: 12/01/2022 2:07 PM Age: 27 years old Clinical indication: Other: Head injury TECHNIQUE: Imaging protocol: Computed tomography of the head without contrast. Radiation optimization: All CT scans at this facility use at least one of these dose optimization techniques: automated exposure control; mA and/or kV adjustment per patient size (includes targeted exams where dose is matched to clinical indication); or iterative reconstruction. COMPARISON: CT HEAD CERVICAL SPINE WO 10/03/2022 9:39 PM FINDINGS: Brain: Ventricles, sulci are within normal limits. There is no evidence of acute hemorrhage, mass or shift. There is no evidence of an acute cortical or major vascular territory infarct. No abnormal extra-axial collections are identified. Cerebral ventricles: No significant ventricular enlargement/hydrocephalus. Paranasal sinuses: No significant sinus opacification or fluid level. Mild sinus mucoperiosteal thickening is seen inferiorly in the maxillary antra. Mastoid air cells: No significant mastoid opacification Bones/joints: There is no acute bony abnormality Soft tissues: Subcutaneous soft tissues are unremarkable IMPRESSION: No acute findings. HPI General Mode of arrival: ambulatory . Date/Time Provider Initiated Documentation: 12/01/22 13:50 . Limitations to Documentation: no limitations . Information obtained by: old records reviewed . History of Present Illness 27 year old M presents to the emergency department with the chief complaint of Head injury, described as moderate and severe, Quality is described as sharp, and is localized to the head. Patient reports no radiation. Patient started experiencing this day(s) (1) and it has been constant. No relieving factors improve symptom(s), Patient notes nausea/vomiting. Patient did receive the following treatments prior to arrival, none Related Data Home Medications Medication Instructions Recorded Confirmed methadone 10 mg/5 mL oral solution 110 mg PO QAM 11/16/21 12/01/22 acetaminophen 325 mg capsule 650 mg PO Q6H PRN 06/07/22 12/01/22 calcitriol 0.5 mcg capsule 0.5 mcg PO BID #360 caps 06/14/22 12/01/22 calcium carbonate 200 mg calcium 1,000 mg PO BID #0 tabs 06/14/22 12/01/22 (500 mg) chewable tablet (Tums) gabapentin 800 mg tablet 300 mg PO DAILY 09/19/22 12/01/22 ibuprofen 200 mg tablet 600 mg PO PRN PRN 09/19/22 12/01/22 esomeprazole magnesium 20 mg 20 mg PO DAILY #30 caps 09/24/22 12/01/22 capsule,delayed release (Nexium) cyclobenzaprine 10 mg tablet 10 mg PO TID PRN muscle spasm #10 10/09/22 12/01/22 tabs clonazepam 0.5 mg tablet 0.5 mg PO BID PRN anxiety #56 tabs 11/08/22 12/01/22 magnesium gluconate 27 mg 27 mg PO BID #60 tabs 11/08/22 12/01/22 magnesium (500 mg) tablet Previous Rx's Medication Instructions Recorded calcitriol 0.5 mcg capsule 0.5 mcg PO BID #360 caps 06/14/22 calcium carbonate 200 mg calcium 1,000 mg PO BID #0 tabs 06/14/22 (500 mg) chewable tablet (Tums) esomeprazole magnesium 20 mg 20 mg PO DAILY #30 caps 09/24/22 capsule,delayed release (Nexium) cyclobenzaprine 10 mg tablet 10 mg PO TID PRN muscle spasm #10 10/09/22 tabs clonazepam 0.5 mg tablet 0.5 mg PO BID PRN anxiety #56 tabs 11/08/22 magnesium gluconate 27 mg 27 mg PO BID #60 tabs 11/08/22 magnesium (500 mg) tablet Allergies Allergy/AdvReac Type Severity Reaction Status Date / Time codeine Allergy Intermediate Verified 12/01/22 13:28 amoxicillin AdvReac Intermediate Nausea Verified 12/01/22 13:28 General Stated Complaint: HeadInjury ADRIANA: 3 Review of Systems Constitutional Constitutional: Denies body ache(s), Denies chills, Denies fever(s) and Reports headache(s) Eyes Eyes: Reports blurry vision and Reports photophobia ENT Ears, Nose, Mouth, and Throat: Denies dizziness and Reports headache(s) Cardiovascular Cardiovascular: Denies chest pain and Denies syncope Gastrointestinal Gastrointestinal: Reports nausea and Reports vomiting Neurologic Neurologic: Reports as per HPI, Denies dizziness, Denies syncope, Reports headache(s), Denies memory loss and Denies sensory deficit Psychiatric Psychiatric: Denies memory loss PFSH All Active Problems (Updated 12/02/22 @ 00:06 by HAMMAD WILEY) Cellulitis (Acute) Severe anxiety with panic (Chronic) Family history of coronary arteriosclerosis (Chronic) Father of NM at 50, mother had NM at 42 Elevated parathyroid hormone (Acute) Suicidal ideation (Acute) Depression (Chronic) Hypocalcemia (Chronic) Hypomagnesemia (Chronic) Depression (Chronic) Primary hyperparathyroidism (Chronic) Chronic constipation (Chronic) Multiple endocrine neoplasia type I (Chronic) Iatrogenic hypocalcemia (Acute) Abdominal pain (Acute) Common bile duct dilatation (Acute) Intrahepatic bile duct dilation (Acute) Abnormal CT scan, kidney (Acute) Sphincter of Oddi dysfunction (Chronic) Therapeutic opioid induced constipation (Acute) Pulmonary nodule 1 cm or greater in diameter (Chronic) Neck pain on left side (Acute) with shoulder, upper back pain.. torticollis, radiating into left hip/leg History of electrolyte imbalance (Acute) Complex medical condition (Chronic) Serious electrolyte imbalances, with gynecomastia, possible MEN Dx, CKD and anemia with baseline anxiety and Hx PTSD. CKD (chronic kidney disease) stage 2, GFR 60-89 ml/min (Acute) GFR 64-65, with Hx FLORESITA and GFR < 45 Gynecomastia, male (Acute) b/l, per CT (Jul 2022).. Possible 2' Methadone, Clnzpm (?). Surg eval (+)/No further action. 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 Adopted: No Caregiver/Support person: No Foster care: No Household members: none Housing: house Number of Children: 0 Communication Needs: None Education Level: high school Do you need help understanding health information?: Never 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 and animals: Yes (Ally) Pets and animals: dog(s) Sexually active: No Do you think of yourself as: straight/heterosexual Current gender identity: male What is your relationship status?: How often do you talk on the phone with friends or family?: twice per week How often do you get together with friends or relatives?: never Do you belong to any clubs or organized social groups?: no Panel score (0-1 are the most socially isolated patients): 0 What type of physical activity do you participate in: walking Duration: 15-30 minutes/day Frequency: 5-6 times per week Maryam/Quaker: Judaism Special maryam needs: No Seatbelt use: always Helmet use: Yes Helmet use: always Drive 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 special needs bus 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 Exam Const General: cooperative, healthy appearing, no acute distress and well groomed Orientation: alert, awake and oriented x3 HENMT Head: normal to inspection Ears: hearing grossly normal bilaterally and TM's normal bilaterally Mouth: oral mucosae normal and moist mucous membranes Throat: posterior oropharynx normal Eyes Visual Rahman: normal visual rahman by confrontation Alignment and Position: alignment normal Periorbital: periorbital findings normal Eyelids: eyelids normal Sclera: sclerae normal Cornea: corneas normal Pupils: PERRL EOM: EOM intact bilaterally Direct ophthalmoscopy: photophobia Neck Neck: normal visual inspection, full ROM, no lymphadenopathy and no meningeal signs Resp Effort & Inspection: normal respiratory effort and able to speak in complete sentences Auscultation: clear to auscultation bilaterally Cardio Rate: regular rate Rhythm: regular rhythm Heart Sounds: S1 normal and S2 normal Neuro General: patient alert, patient awake, patient oriented x3, gait normal, tone normal, moves all extremities, CN's II-XI intact bilaterally and not confused Cognition: normal cognition Speech: speech normal Motor: muscle tone normal throughout, strength 5/5 throughout, no pronator drift, no movement abnormalities noted and no fasciculations Sensory Exam: no sensory deficits noted Coordination: Does not sway with eyes open Course Vital Signs Vital signs: Vital Signs Temperature 37.2 C 12/01/22 13:25 Pulse 83 12/01/22 13:25 Respiratory Rate 16 12/01/22 13:25 Blood Pressure 121/82 12/01/22 13:25 Pulse Oximetry 97 12/01/22 13:25 Temperature 37.2 C 12/01/22 13:25 Temperature Source Skin 12/01/22 13:25 Pulse 83 12/01/22 13:25 Respiratory Rate 16 12/01/22 13:25 Respiratory Effort Normal, Non-Labored 12/01/22 13:38 Respiratory Depth Normal 12/01/22 13:38 Respiratory Pattern Normal 12/01/22 13:38 Blood Pressure 121/82 12/01/22 13:25 Blood Pressure Position Sitting 12/01/22 13:25 Pulse Oximetry 97 12/01/22 13:25 Oxygen Delivery Method Room Air 12/01/22 13:25 Oxygen Flow Rate 0 12/01/22 13:25 Pain Level 4 12/01/22 13:25
--- NOTE | 2022-12-01 15:09 | DI.VRAD_ITS ---
PROCEDURE INFORMATION: Exam: CT Head Without Contrast Exam date and time: 12/01/2022 2:07 PM Age: 27 years old Clinical indication: Other: Head injury TECHNIQUE: Imaging protocol: Computed tomography of the head without contrast. Radiation optimization: All CT scans at this facility use at least one of these dose optimization techniques: automated exposure control; mA and/or kV adjustment per patient size (includes targeted exams where dose is matched to clinical indication); or iterative reconstruction. COMPARISON: CT HEAD CERVICAL SPINE WO 10/03/2022 9:39 PM FINDINGS: Brain: Ventricles, sulci are within normal limits. There is no evidence of acute hemorrhage, mass or shift. There is no evidence of an acute cortical or major vascular territory infarct. No abnormal extra-axial collections are identified. Cerebral ventricles: No significant ventricular enlargement/hydrocephalus. Paranasal sinuses: No significant sinus opacification or fluid level. Mild sinus mucoperiosteal thickening is seen inferiorly in the maxillary antra. Mastoid air cells: No significant mastoid opacification Bones/joints: There is no acute bony abnormality Soft tissues: Subcutaneous soft tissues are unremarkable IMPRESSION: No acute findings. Dictated and Authenticated by: Susana Bonilla MD. Ordering:ANDREW Maria MD
[2022-12-01 15:39] VITALS: BP 121/82; PULSE 83; RESP 16; TEMP 37.2; O2SAT 97
== END 2022-12-01 16:36 | disposition home or self-care (01) ==
PROVIDERS: Emergency Provider Nurse Practitioner Family; PCP Family Medicine
DX: S06.0X0A Concussion without loss of consciousness, initial encounter (principal); F41.9 Anxiety disorder, unspecified
CPT/HCPCS: 99284; 70450; 99283

== ENCOUNTER 2022-12-06 10:41 | Emergency (ER) | payer OTHER, SELFPAY ==
[2022-12-06 10:44] VITALS: BP 122/80; PULSE 102; RESP 18; TEMP 37; O2SAT 99
--- NOTE | 2022-12-06 11:08 | W.ED.GENAD ---
Discharge Plan Disposition Patient Disposition: Home Discharge Details Clinical Impression: Dysuria Primary Care Provider: Brendon Vivar ED Provider: Ryne De Leon Home Meds and New Rx's Prescriptions: No Action methadone 10 mg/5 mL solution 110 mg PO QAM esomeprazole magnesium [Nexium] 20 mg capsule,delayed release(DR/EC) 20 mg PO DAILY Qty: 30 0RF magnesium gluconate 27 mg magnesium (500 mg) tablet 27 mg PO BID Qty: 60 3RF gabapentin 300 mg capsule 300 mg PO TID Qty: 270 3RF clonazepam 1 mg tablet 1 mg PO BID Qty: 56 0RF cyclobenzaprine 10 mg tablet 10 mg PO TID PRN (Reason: muscle spasm) Qty: 30 3RF calcium carbonate [Tums] 200 mg calcium (500 mg) tablet,chewable 1,000 mg PO BID Qty: 0 0RF Hold Instructions: Resume on 06/15/22. calcitriol 0.5 mcg capsule 0.5 mcg PO BID Qty: 360 3RF Hold Instructions: Resume on 06/15/22. ibuprofen 200 mg Tablet 600 mg PO PRN PRN Discharge Instructions Instructions: Dysuria (ED) Additional Instructions: you do not have a urinary tract infection nor findings that are concerning for a kidney stone. Please empty your bladder before going to bed and do not drink large quantitities of fluids before going to bed Medical Decision Making 27-year-old presents to the ED for evaluation of dysuria and incontinence during the night for the past week. States that his urine also does not smell well. Mild dysuria. He is concerned that he may have an infection or kidney stone. UA is normal. No hematuria. On my exam no flank pain. No signs symptoms consistent with a kidney stone. Patient reassured. He does not have any peritoneal symptomatology. No back pain. I do not think he requires imaging at this time. HPI General Date/Time Provider Initiated Documentation: 12/06/22 11:08. HPI Narrative: 27-year-old presents to the emergency department for evaluation of ongoing abdominal problems for months. has not lost or gained any weight. He is concerned because he has what has been 3 times in the past 10 days. At times he does endorse some right flank pain not currently. No fevers no chills. He is also concerned because he believes his urine is smelled strong. No discharge. He is not concerned regarding any STIs. No back injury. No peritoneal or genital paresthesias. No incontinence during the day. Related Data Home Medications Medication Instructions Recorded Confirmed methadone 10 mg/5 mL oral solution 110 mg PO QAM 11/16/21 12/05/22 calcitriol 0.5 mcg capsule 0.5 mcg PO BID #360 caps 06/14/22 12/05/22 calcium carbonate 200 mg calcium 1,000 mg PO BID #0 tabs 06/14/22 12/05/22 (500 mg) chewable tablet (Tums) ibuprofen 200 mg tablet 600 mg PO PRN PRN 09/19/22 12/05/22 esomeprazole magnesium 20 mg 20 mg PO DAILY #30 caps 09/24/22 12/05/22 capsule,delayed release (Nexium) magnesium gluconate 27 mg 27 mg PO BID #60 tabs 11/08/22 12/05/22 magnesium (500 mg) tablet clonazepam 1 mg tablet 1 mg PO BID #56 tabs 12/03/22 12/05/22 cyclobenzaprine 10 mg tablet 10 mg PO TID PRN muscle spasm #30 12/03/22 12/05/22 tabs gabapentin 300 mg capsule 300 mg PO TID #270 caps 12/03/22 12/05/22 Previous Rx's Medication Instructions Recorded calcitriol 0.5 mcg capsule 0.5 mcg PO BID #360 caps 06/14/22 calcium carbonate 200 mg calcium 1,000 mg PO BID #0 tabs 06/14/22 (500 mg) chewable tablet (Tums) esomeprazole magnesium 20 mg 20 mg PO DAILY #30 caps 09/24/22 capsule,delayed release (Nexium) magnesium gluconate 27 mg 27 mg PO BID #60 tabs 11/08/22 magnesium (500 mg) tablet clonazepam 1 mg tablet 1 mg PO BID #56 tabs 12/03/22 cyclobenzaprine 10 mg tablet 10 mg PO TID PRN muscle spasm #30 12/03/22 tabs gabapentin 300 mg capsule 300 mg PO TID #270 caps 12/03/22 Allergies Allergy/AdvReac Type Severity Reaction Status Date / Time codeine Allergy Intermediate Verified 12/05/22 14:59 amoxicillin AdvReac Intermediate Nausea Verified 12/05/22 14:59 General Stated Complaint: FlankPain ADRIANA: 3 Review of Systems Narrative: 10 point review of system is negative unless otherwise specified in the HPI PFSH All Active Problems (Updated 12/06/22 @ 12:27 by Ryne De Leon MD) Dysuria (Acute) Cellulitis (Acute) Severe anxiety with panic (Chronic) Family history of coronary arteriosclerosis (Chronic) Father of [place] at 50, mother had [place] at 42 Elevated parathyroid hormone (Acute) Suicidal ideation (Acute) Depression (Chronic) Hypocalcemia (Chronic) Hypomagnesemia (Chronic) Depression (Chronic) Primary hyperparathyroidism (Chronic) Chronic constipation (Chronic) Multiple endocrine neoplasia type I (Chronic) Iatrogenic hypocalcemia (Acute) Abdominal pain (Acute) Common bile duct dilatation (Acute) Intrahepatic bile duct dilation (Acute) Abnormal CT scan, kidney (Acute) Sphincter of Oddi dysfunction (Chronic) Therapeutic opioid induced constipation (Acute) Pulmonary nodule 1 cm or greater in diameter (Chronic) Neck pain on left side (Acute) with shoulder, upper back pain.. torticollis, radiating into left hip/leg History of electrolyte imbalance (Acute) Complex medical condition (Chronic) Serious electrolyte imbalances, with gynecomastia, possible MEN Dx, CKD and anemia with baseline anxiety and Hx PTSD. CKD (chronic kidney disease) stage 2, GFR 60-89 ml/min (Acute) GFR 64-65, with Hx FLORESITA and GFR < 45 Gynecomastia, male (Acute) b/l, per CT (Jul 2022).. Possible 2' Methadone, Clnzpm (?). Surg eval (+)/No further action. 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 Adopted: No Caregiver/Support person: No Foster care: No Household members: none Housing: house Number of Children: 0 Communication Needs: None Education Level: high school Do you need help understanding health information?: Never 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 and animals: Yes (Ally) Pets and animals: dog(s) Sexually active: No Do you think of yourself as: straight/heterosexual Current gender identity: male What is your relationship status?: How often do you talk on the phone with friends or family?: twice per week How often do you get together with friends or relatives?: never Do you belong to any clubs or organized social groups?: no Panel score (0-1 are the most socially isolated patients): 0 What type of physical activity do you participate in: walking Duration: 15-30 minutes/day Frequency: 5-6 times per week Maryam/Zoroastrian: Restorationism Special maryam needs: No Seatbelt use: always Helmet use: Yes Helmet use: always Drive 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 race car 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 Exam Narrative Exam Narrative: General: A,A Ox3, Calm, no apparent distress, well developed, pleasant and cooperative Head Size/Shape: normocephalic, atraumatic Eyes Pupils: PERRLA Extraocular Mobility: intact and symmetrical Conjunctiva: non-injected, anicteric, no discharge Ears, Nose, Throat Nares: patent bilaterally Respiratory Effort: no dyspnea Pulse Quality: +2 radial Abdomen Inspection and Palpation: soft, non-tender, non-distended, no hepatosplenomegaly Musculoskeletal System Joints, Bones, and Muscles: no deformities Extremities: warm and well-perfused, no cyanosis, capillary refill <2 seconds Skin Skin Inspection: no rash, no lesions, no bruising Neurological Motor: normal tone, normal strength, moving all extremities equally Psychiatric: good insight, good judgement, normal mood and affect Course Vital Signs Vital signs: Vital Signs Temperature 37.0 C 12/06/22 10:44 Pulse 102 H 12/06/22 10:44 Respiratory Rate 18 12/06/22 10:44 Blood Pressure 122/80 12/06/22 10:44 Pulse Oximetry 99 12/06/22 10:44 Temperature 37.0 C 12/06/22 10:44 Temperature Source Oral 12/06/22 10:44 Pulse 102 H 12/06/22 10:44 Respiratory Rate 18 12/06/22 10:44 Blood Pressure 122/80 12/06/22 10:44 Blood Pressure Position Sitting 12/06/22 10:44 Pulse Oximetry 99 12/06/22 10:44 Oxygen Delivery Method Room Air 12/06/22 10:44 Oxygen Flow Rate 0 12/06/22 10:44 Pain Level 4 12/06/22 10:44
[2022-12-06 12:15] LABS: Bilirubin Negative (Negative); Blood Negative (Negative); Clarity Sl Cloudy (Clear); Glucose Negative (Negative); Ketones Negative (Negative); Leukocyte Esterase Negative (Negative); Nitrite Negative (Negative); Specific Gravity 1.015 (1.005-1.025); Urobilinogen 0.2 mg/dL (Up to 0.2); pH 8.5 (5-8)
== END 2022-12-06 12:32 | disposition home or self-care (01) ==
PROVIDERS: Emergency Provider Emergency Medicine; PCP Family Medicine
DX: R30.0 Dysuria (principal)
CPT/HCPCS: 99283; 81003

== ENCOUNTER 2022-12-07 07:42 | Emergency (ER) | payer OTHER, SELFPAY ==
[2022-12-07 07:46] VITALS: BP 132/74; PULSE 76; RESP 18; TEMP 36.6; O2SAT 96
--- NOTE | 2022-12-07 08:19 | W.ED.GENAD ---
Discharge Plan Disposition Patient Disposition: Home Discharge Details Clinical Impression: Trapezius strain Primary Care Provider: Brendon Vivar ED Provider: Luh Tsai Home Meds and New Rx's Prescriptions: New diclofenac sodium 1 % gel 4 g topical QID Qty: 100 0RF Rx Instructions: apply to single knee, ankle, foot; for foot includes sole/toes/top of foot orphenadrine citrate 100 mg tablet extended release 100 mg PO BID Qty: 10 0RF Continued methadone 10 mg/5 mL solution 110 mg PO QAM esomeprazole magnesium [Nexium] 20 mg capsule,delayed release(DR/EC) 20 mg PO DAILY Qty: 30 0RF magnesium gluconate 27 mg magnesium (500 mg) tablet 27 mg PO BID Qty: 60 3RF gabapentin 300 mg capsule 300 mg PO TID Qty: 270 3RF clonazepam 1 mg tablet 1 mg PO BID Qty: 56 0RF cyclobenzaprine 10 mg tablet 10 mg PO TID PRN (Reason: muscle spasm) Qty: 30 3RF calcium carbonate [Tums] 200 mg calcium (500 mg) tablet,chewable 1,000 mg PO BID Qty: 0 0RF Hold Instructions: Resume on 06/15/22. calcitriol 0.5 mcg capsule 0.5 mcg PO BID Qty: 360 3RF Hold Instructions: Resume on 06/15/22. ibuprofen 200 mg Tablet 600 mg PO PRN PRN Discharge Instructions Additional Instructions: Apply Voltaren gel topically over the area of tenderness Take the orphenadrine as prescribed, do not take this within 24 hours of taking Flexeril, there are the similar medication and it can make you very sick Take ibuprofen 4 to 600 mg and Tylenol 650 mg as prescribed on the bottle for pain control Warm compresses as needed Recheck with primary care physician with persistent pain this upcoming week return earlier should you have new or worsening complaints Referrals: Brendon Vivar DO [Primary Care Provider] - Medical Decision Making 27-year-old male presents with upper back and arm pain after slipping on his arms over his head No indication for x-rays, no traumatic injury MRI from 615 patient cervical spine was reviewed and does not show evidence of acute abnormality Endorsing paresthesias to his left forearm, does not appreciated on exam Strength and sensation intact bilateral upper extremities and lower extremities Reproducible tenderness over left trapezius Trigger point injection was performed with 3 cc of bupivacaine, 0.5% into the left trapezius and patient tolerated this procedure without incident Good effect achieved Placed on orphenadrine and will apply Voltaren gel topically Return precautions reviewed and patient expressed understanding, discharged home in stable condition with stable vitals HPI General Date/Time Provider Initiated Documentation: 12/07/22 08:01. HPI Narrative: This 27-year-old male known to this facility with history of M EN 1 disorder, hypocalcemia, status post parathyroidectomy presents with report of left shoulder and upper back pain. He states he slept with his hands over his head and his pain increased at that time. He states he has had some paresthesias in his arms. He denies any chest pain or shortness of breath. Denies any weakness. He is under the care of neurology for report of paresthesias to his extremities. He had an MRI recently that did not show evidence of acute abnormality per prior documentation denies fever or chills. Denies headache. Related Data Home Medications Medication Instructions Recorded Confirmed methadone 10 mg/5 mL oral solution 110 mg PO QAM 11/16/21 12/07/22 calcitriol 0.5 mcg capsule 0.5 mcg PO BID #360 caps 06/14/22 12/07/22 calcium carbonate 200 mg calcium 1,000 mg PO BID #0 tabs 06/14/22 12/07/22 (500 mg) chewable tablet (Tums) ibuprofen 200 mg tablet 600 mg PO PRN PRN 09/19/22 12/07/22 esomeprazole magnesium 20 mg 20 mg PO DAILY #30 caps 09/24/22 12/07/22 capsule,delayed release (Nexium) magnesium gluconate 27 mg 27 mg PO BID #60 tabs 11/08/22 12/07/22 magnesium (500 mg) tablet clonazepam 1 mg tablet 1 mg PO BID #56 tabs 12/03/22 12/07/22 cyclobenzaprine 10 mg tablet 10 mg PO TID PRN muscle spasm #30 12/03/22 12/07/22 tabs gabapentin 300 mg capsule 300 mg PO TID #270 caps 12/03/22 12/07/22 diclofenac sodium 1 % topical gel 4 g topical QID #100 grams 12/07/22 orphenadrine citrate 100 mg 100 mg PO BID #10 tabs 12/07/22 tablet,extended release Previous Rx's Medication Instructions Recorded calcitriol 0.5 mcg capsule 0.5 mcg PO BID #360 caps 06/14/22 calcium carbonate 200 mg calcium 1,000 mg PO BID #0 tabs 06/14/22 (500 mg) chewable tablet (Tums) esomeprazole magnesium 20 mg 20 mg PO DAILY #30 caps 09/24/22 capsule,delayed release (Nexium) magnesium gluconate 27 mg 27 mg PO BID #60 tabs 11/08/22 magnesium (500 mg) tablet clonazepam 1 mg tablet 1 mg PO BID #56 tabs 12/03/22 cyclobenzaprine 10 mg tablet 10 mg PO TID PRN muscle spasm #30 12/03/22 tabs gabapentin 300 mg capsule 300 mg PO TID #270 caps 12/03/22 diclofenac sodium 1 % topical gel 4 g topical QID #100 grams 12/07/22 orphenadrine citrate 100 mg 100 mg PO BID #10 tabs 12/07/22 tablet,extended release Allergies Allergy/AdvReac Type Severity Reaction Status Date / Time codeine Allergy Intermediate Verified 12/07/22 07:49 amoxicillin AdvReac Intermediate Nausea Verified 12/07/22 07:49 General Stated Complaint: Orthopedic ADRIANA: 4 PFSH All Active Problems (Updated 12/07/22 @ 08:26 by ANDREW Arriaga) Dysuria (Acute) Trapezius strain (Acute) Cellulitis (Acute) Severe anxiety with panic (Chronic) Family history of coronary arteriosclerosis (Chronic) Father of [place] at 50, mother had [place] at 42 Elevated parathyroid hormone (Acute) Suicidal ideation (Acute) Depression (Chronic) Hypocalcemia (Chronic) Hypomagnesemia (Chronic) Depression (Chronic) Primary hyperparathyroidism (Chronic) Chronic constipation (Chronic) Multiple endocrine neoplasia type I (Chronic) Iatrogenic hypocalcemia (Acute) Abdominal pain (Acute) Common bile duct dilatation (Acute) Intrahepatic bile duct dilation (Acute) Abnormal CT scan, kidney (Acute) Sphincter of Oddi dysfunction (Chronic) Therapeutic opioid induced constipation (Acute) Pulmonary nodule 1 cm or greater in diameter (Chronic) Neck pain on left side (Acute) with shoulder, upper back pain.. torticollis, radiating into left hip/leg History of electrolyte imbalance (Acute) Complex medical condition (Chronic) Serious electrolyte imbalances, with gynecomastia, possible MEN Dx, CKD and anemia with baseline anxiety and Hx PTSD. CKD (chronic kidney disease) stage 2, GFR 60-89 ml/min (Acute) GFR 64-65, with Hx FLORESITA and GFR < 45 Gynecomastia, male (Acute) b/l, per CT (Jul 2022).. Possible 2' Methadone, Clnzpm (?). Surg eval (+)/No further action. 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 Adopted: No Caregiver/Support person: No Foster care: No Household members: none Housing: house Number of Children: 0 Communication Needs: None Education Level: high school Do you need help understanding health information?: Never 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 and animals: Yes (Ally) Pets and animals: dog(s) Sexually active: No Do you think of yourself as: straight/heterosexual Current gender identity: male What is your relationship status?: How often do you talk on the phone with friends or family?: twice per week How often do you get together with friends or relatives?: never Do you belong to any clubs or organized social groups?: no Panel score (0-1 are the most socially isolated patients): 0 What type of physical activity do you participate in: walking Duration: 15-30 minutes/day Frequency: 5-6 times per week Maryam/Faith: Yazdanism Special maryam needs: No Seatbelt use: always Helmet use: Yes Helmet use: always Drive 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 residential recycle 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 Course Vital Signs Vital signs: Vital Signs Temperature 36.6 C 12/07/22 07:46 Pulse 76 12/07/22 07:46 Respiratory Rate 18 12/07/22 07:46 Blood Pressure 132/74 12/07/22 07:46 Pulse Oximetry 96 12/07/22 07:46 Temperature 36.6 C 12/07/22 07:46 Temperature Source Temporal Artery Scan 12/07/22 07:46 Pulse 76 12/07/22 07:46 Respiratory Rate 18 12/07/22 07:46 Respiratory Effort Normal, Non-Labored 12/07/22 07:50 Blood Pressure 132/74 12/07/22 07:46 Pulse Oximetry 96 12/07/22 07:46 Oxygen Delivery Method Room Air 12/07/22 07:46 Oxygen Flow Rate 0 12/07/22 07:46
[2022-12-07] MEDS: Bupivacaine 0.5% Pres-Free 30 ML VIAL (08:23)
== END 2022-12-07 08:46 | disposition home or self-care (01) ==
PROVIDERS: Emergency Provider Physician Assistant; PCP Family Medicine
DX: S46.812A Strain of other muscles, fascia and tendons at shoulder and upper arm level, left arm, initial encounter (principal); X58.XXXA Exposure to other specified factors, initial encounter
CPT/HCPCS: 99283; 99284

== ENCOUNTER 2022-12-09 01:56 | Outpatient (CLI) | payer OTHER, SELFPAY ==
--- NOTE | 2022-12-09 | DI.MRI_ITS ---
Exam(s) MR BRAIN PITUITARY WO/W EXAM: MR BRAIN PITUITARY WO/W IV Contrast: mL of Magnevist contrast administered. CLINICAL HISTORY: H/O PARESTHESIA,HYPERREFLEXIA,H/O MEN1,[id number] TECHNIQUE: Multiplanar multisequence MRI of the brain and pituitary gland was performed. CONTRAST MATERIAL: IV Contrast: 20 mL of Magnevist contrast administered. COMPARISON: CT CT HEAD WO from 12/01/2022 Findings: The examination is limited due to patient motion artifact. VENTRICLES AND EXTRA AXIAL SPACES: Normal in size and morphology for the patient's age. HEMORRHAGE: None. CEREBRAL PARENCHYMA: No focus of restricted diffusion to suggest acute infarct. No space-occupying le gonzalo identified. MIDLINE SHIFT: None. BRAINSTEM/CEREBELLUM: Normal. CALVARIUM: Normal. ENHANCEMENT: No suspicious enhancement identified. VISUALIZED PARANASAL SINUSES/MASTOIDS: Clear. OTHER FINDINGS: None. PITUITARY: Pituitary stalk is midline. The gland demonstrates homogenous signal intensity with homogeneous enhan cement. No evidence of macroadenoma or microadenoma. The optic chiasm is unremarkable. The cavernous portions of both carotid arteries are unremarkable. Impression: Unremarkable MRI of the brain and pituitary gland. DATA REPOSITORY:
[2022-12-09] MEDS: Gadoterate meglumine 20 ML SYRINGE IVP (13:23)
[2022-12-09] MEDS: Normal Saline Flush 10 ML SYR IVP (13:23)
== END 2022-12-09 02:16 ==
PROVIDERS: PCP Family Medicine; Visit Provider Physician Assistant Medical
DX: R20.2 Paresthesia of skin (principal); R29.2 Abnormal reflex
CPT/HCPCS: 70553

== ENCOUNTER 2022-12-11 21:51 | Emergency (ER) | payer OTHER, SELFPAY ==
[2022-12-11] VITALS (11 sets, daily range): BP systolic 112–119; BP diastolic 66–80; PULSE 67–91; RESP 28; TEMP 36.8; O2SAT 94–98
--- NOTE | 2022-12-11 22:08 | ED.GENADUL_ITS ---
Discharge Plan Disposition Patient Disposition: Home Discharge Details Clinical Impression: Cough Primary Care Provider: Brendon Vivar ED Provider: Antoinette Templeton Home Meds and New Rx's Prescriptions: New benzonatate 100 mg capsule 100 mg PO TID PRN (Reason: cough) Qty: 14 0RF Rx Instructions: Take 1 capsule up to 3 times daily as needed for cough Continued methadone 10 mg/5 mL solution 110 mg PO QAM esomeprazole magnesium [Nexium] 20 mg capsule,delayed release(DR/EC) 20 mg PO DAILY Qty: 30 0RF magnesium gluconate 27 mg magnesium (500 mg) tablet 27 mg PO BID Qty: 60 3RF gabapentin 300 mg capsule 300 mg PO TID Qty: 270 3RF clonazepam 1 mg tablet 1 mg PO BID Qty: 56 0RF cyclobenzaprine 10 mg tablet 10 mg PO TID PRN (Reason: muscle spasm) Qty: 30 3RF calcium carbonate [Tums] 200 mg calcium (500 mg) tablet,chewable 1,000 mg PO BID Qty: 0 0RF Hold Instructions: Resume on 06/15/22. calcitriol 0.5 mcg capsule 0.5 mcg PO BID Qty: 360 3RF Hold Instructions: Resume on 06/15/22. ibuprofen 200 mg Tablet 600 mg PO PRN PRN diclofenac sodium 1 % gel 4 g topical QID Qty: 100 0RF Rx Instructions: apply to single knee, ankle, foot; for foot includes sole/toes/top of foot orphenadrine citrate 100 mg tablet extended release 100 mg PO BID Qty: 10 0RF Discharge Instructions Instructions: Acute Cough (ED) Additional Instructions: Negative Covid and flu swab. Use Vicks or similar [id number] on her chest. Take the cough medicine as directed. Follow up with primary care provider in 3-5 days. Return to ED sooner if any worsening or concerns. Increase oral fluids. Please take Tylenol or Ibuprofen with food every 4-6 hours as needed for pain and swelling. Referrals: Brendon Vivar DO [Primary Care Provider] - 3 days Medical Decision Making 27-year-old male who is well-known to the department presents to the ER with a chief complaint of trouble breathing and cough since yesterday. He did have an MRI of his thyroid and brain with contrast yesterday and he reports that symptoms began after that. He does have a dry cough. Lungs are clear to auscultation bilaterally no increased work of breathing. He is satting 97% on room air. He does report subjective fever of 102 at home he did take ibuprofen prior to arrival. Rapid COVID swab ordered. Fabian Flores. This text was generated using [employer] dictation system, please disregard any oddities of phrase or misspellings. HPI General Mode of arrival: ambulatory . Date/Time Provider Initiated Documentation: 12/11/22 21:54 . Limitations to Documentation: no limitations . Information obtained by: patient, RN notes reviewed and old records reviewed . HPI Narrative: 27-year-old male who is well-known to the department presents to the ER with a chief complaint of trouble breathing and cough since yesterday. He did have an MRI of his thyroid and brain with contrast yesterday and he reports that symptoms began after that. He does have a dry cough. Lungs are clear to auscultation bilaterally no increased work of breathing. He is satting 97% on room air. He does report subjective fever of 102 at home he did take ibuprofen prior to arrival. Related Data Home Medications Medication Instructions Recorded Confirmed methadone 10 mg/5 mL oral solution 110 mg PO QAM 11/16/21 12/07/22 calcitriol 0.5 mcg capsule 0.5 mcg PO BID #360 caps 06/14/22 12/07/22 calcium carbonate 200 mg calcium 1,000 mg PO BID #0 tabs 06/14/22 12/07/22 (500 mg) chewable tablet (Tums) ibuprofen 200 mg tablet 600 mg PO PRN PRN 09/19/22 12/07/22 esomeprazole magnesium 20 mg 20 mg PO DAILY #30 caps 09/24/22 12/07/22 capsule,delayed release (Nexium) magnesium gluconate 27 mg 27 mg PO BID #60 tabs 11/08/22 12/07/22 magnesium (500 mg) tablet clonazepam 1 mg tablet 1 mg PO BID #56 tabs 12/03/22 12/07/22 cyclobenzaprine 10 mg tablet 10 mg PO TID PRN muscle spasm #30 12/03/22 12/07/22 tabs gabapentin 300 mg capsule 300 mg PO TID #270 caps 12/03/22 12/07/22 diclofenac sodium 1 % topical gel 4 g topical QID #100 grams 12/07/22 orphenadrine citrate 100 mg 100 mg PO BID #10 tabs 12/07/22 tablet,extended release benzonatate 100 mg capsule 100 mg PO TID PRN cough #14 caps 12/11/22 Previous Rx's Medication Instructions Recorded calcitriol 0.5 mcg capsule 0.5 mcg PO BID #360 caps 06/14/22 calcium carbonate 200 mg calcium 1,000 mg PO BID #0 tabs 06/14/22 (500 mg) chewable tablet (Tums) esomeprazole magnesium 20 mg 20 mg PO DAILY #30 caps 09/24/22 capsule,delayed release (Nexium) magnesium gluconate 27 mg 27 mg PO BID #60 tabs 11/08/22 magnesium (500 mg) tablet clonazepam 1 mg tablet 1 mg PO BID #56 tabs 12/03/22 cyclobenzaprine 10 mg tablet 10 mg PO TID PRN muscle spasm #30 12/03/22 tabs gabapentin 300 mg capsule 300 mg PO TID #270 caps 12/03/22 diclofenac sodium 1 % topical gel 4 g topical QID #100 grams 12/07/22 orphenadrine citrate 100 mg 100 mg PO BID #10 tabs 12/07/22 tablet,extended release benzonatate 100 mg capsule 100 mg PO TID PRN cough #14 caps 12/11/22 Allergies Allergy/AdvReac Type Severity Reaction Status Date / Time codeine Allergy Intermediate Verified 12/07/22 07:49 amoxicillin AdvReac Intermediate Nausea Verified 12/07/22 07:49 General Stated Complaint: RespSymp ADRIANA: 3 Review of Systems All systems reviewed & are unremarkable except as noted in HPI and below Cardiovascular Cardiovascular: Reports dyspnea Respiratory Respiratory: Reports cough and Reports dyspnea PFSH All Active Problems (Updated 12/11/22 @ 22:55 by Antoinette Templeton NP) Dysuria (Acute) Trapezius strain (Acute) Cough (Acute) Cellulitis (Acute) Severe anxiety with panic (Chronic) Family history of coronary arteriosclerosis (Chronic) Father of [place] at 50, mother had MN at 42 Elevated parathyroid hormone (Acute) Suicidal ideation (Acute) Depression (Chronic) Hypocalcemia (Chronic) Hypomagnesemia (Chronic) Depression (Chronic) Primary hyperparathyroidism (Chronic) Chronic constipation (Chronic) Multiple endocrine neoplasia type I (Chronic) Iatrogenic hypocalcemia (Acute) Abdominal pain (Acute) Common bile duct dilatation (Acute) Intrahepatic bile duct dilation (Acute) Abnormal CT scan, kidney (Acute) Sphincter of Oddi dysfunction (Chronic) Therapeutic opioid induced constipation (Acute) Pulmonary nodule 1 cm or greater in diameter (Chronic) Neck pain on left side (Acute) with shoulder, upper back pain.. torticollis, radiating into left hip/leg History of electrolyte imbalance (Acute) Complex medical condition (Chronic) Serious electrolyte imbalances, with gynecomastia, possible MEN Dx, CKD and anemia with baseline anxiety and Hx PTSD. CKD (chronic kidney disease) stage 2, GFR 60-89 ml/min (Acute) GFR 64-65, with Hx FLORESITA and GFR < 45 Gynecomastia, male (Acute) b/l, per CT (Jul 2022).. Possible 2' Methadone, Clnzpm (?). Surg eval (+)/No further action. 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 Adopted: No Caregiver/Support person: No Foster care: No Household members: none Housing: house Number of Children: 0 Communication Needs: None Education Level: high school Do you need help understanding health information?: Never 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 and animals: Yes (Ally) Pets and animals: dog(s) Sexually active: No Do you think of yourself as: straight/heterosexual Current gender identity: male What is your relationship status?: How often do you talk on the phone with friends or family?: twice per week How often do you get together with friends or relatives?: never Do you belong to any clubs or organized social groups?: no Panel score (0-1 are the most socially isolated patients): 0 What type of physical activity do you participate in: walking Duration: 15-30 minutes/day Frequency: 5-6 times per week Maryam/Rastafari: Scientology Special maryam needs: No Seatbelt use: always Helmet use: Yes Helmet use: always 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 Appears stated age. Normal body habitus. Head: Normocephalic, no trauma. Eyes: Pupils PERRL, Red reflex noted, EOM's intact. Eyelids symmetrical without lesions, discharge, or swelling. ENT: Bilateral TM's WNL, External ear normal to inspection, no mastoid TTP, swelling, or erythema, Nasal turbinates WNL, no nasal discharge. Normal dentition, Posterior pharynx WNL, no exudate. Chest: RRR, Normal S1, S2, distal pulses intact. Resp: Lungs clear to auscultation bilaterally, no wheezes, rales, or rhonchi. Abdomen: Soft, non-distended, Normoactive bowel sounds all 4 quads. Musculoskeletal: Normal gait, 5/5 strength to all four extremities. Skin: No suspicious rashes or lesions. Capillary refill less than 2 sec. Neurologic: Cranial nerves II-XII intact. Alert and oriented x 3. Motor: No deficits noted. Sensory: Intact bilaterally all 4 extremities. Reflexes: DTR's intact bilaterally.. Hematologic/Lymphatic: No ecchymosis, no lymphadenopathy. Course Vital Signs Vital signs: Vital Signs Temperature 36.8 C 12/11/22 21:57 Pulse 91 H 12/11/22 21:57 Respiratory Rate 28 H 12/11/22 21:57 Blood Pressure 112/80 12/11/22 21:57 Pulse Oximetry 98 12/11/22 21:57 Temperature 36.8 C 12/11/22 21:57 Pulse 91 H 12/11/22 21:57 Respiratory Rate 28 H 12/11/22 21:57 Respiratory Effort Normal, Non-Labored 12/11/22 22:05 Respiratory Depth Normal 12/11/22 22:05 Blood Pressure 112/80 12/11/22 21:57 Pulse Oximetry 98 12/11/22 21:57 Oxygen Delivery Method Room Air 12/11/22 21:57 Oxygen Flow Rate 0 12/11/22 21:57
== END 2022-12-11 23:05 | disposition home or self-care (01) ==
PROVIDERS: Emergency Provider Registered Nurse Emergency; PCP Family Medicine
DX: R05.9 Cough, unspecified (principal); R50.9 Fever, unspecified
CPT/HCPCS: 87426; 99283; 99284

== ENCOUNTER 2022-12-16 06:13 | Emergency (ER) | payer OTHER, SELFPAY ==
[2022-12-16 06:26] VITALS: BP 133/80; PULSE 97; RESP 20; TEMP 36.9; O2SAT 99
[2022-12-16 06:27] VITALS: RESP 20
--- NOTE | 2022-12-16 06:32 | W.ED.GENAD ---
Discharge Plan Disposition Patient Disposition: Home Condition: Stable Discharge Details Chief Complaint: SOB Clinical Impression: Cough Primary Care Provider: Brendon Vivar ED Provider: Ajay Kennedy Home Meds and New Rx's Prescriptions: No Action methadone 10 mg/5 mL solution 110 mg PO QAM esomeprazole magnesium [Nexium] 20 mg capsule,delayed release(DR/EC) 20 mg PO DAILY Qty: 30 0RF magnesium gluconate 27 mg magnesium (500 mg) tablet 27 mg PO BID Qty: 60 3RF gabapentin 300 mg capsule 300 mg PO TID Qty: 270 3RF clonazepam 1 mg tablet 1 mg PO BID Qty: 56 0RF cyclobenzaprine 10 mg tablet 10 mg PO TID PRN (Reason: muscle spasm) Qty: 30 3RF calcium carbonate [Tums] 200 mg calcium (500 mg) tablet,chewable 1,000 mg PO BID Qty: 0 0RF Hold Instructions: Resume on 06/15/22. calcitriol 0.5 mcg capsule 0.5 mcg PO BID Qty: 360 3RF Hold Instructions: Resume on 06/15/22. ibuprofen 200 mg Tablet 600 mg PO PRN PRN diclofenac sodium 1 % gel 4 g topical QID Qty: 100 0RF Rx Instructions: apply to single knee, ankle, foot; for foot includes sole/toes/top of foot orphenadrine citrate 100 mg tablet extended release 100 mg PO BID Qty: 10 0RF benzonatate 100 mg capsule 100 mg PO TID PRN (Reason: cough) Qty: 14 0RF Rx Instructions: Take 1 capsule up to 3 times daily as needed for cough Discharge Instructions Instructions: Acute Cough (ED) Medical Decision Making 27-year-old male presents with congestion and cough in the setting to be exposed to black mold. Lungs clear bilaterally hemodynamically stable afebrile nontoxic, nonhypoxic. Trial of dexamethasone. Patient to follow-up with his primary care physician. Low suspicion for pneumonia PE ACS pneumothorax or aortic pathology HPI General Date/Time Provider Initiated Documentation: 12/16/22 06:32. HPI Narrative: 27-year-old male presents with cough and chest congestion in the setting of being exposed to black mold in his air conditioning unit. Related Data Home Medications Medication Instructions Recorded Confirmed methadone 10 mg/5 mL oral solution 110 mg PO QAM 11/16/21 12/07/22 calcitriol 0.5 mcg capsule 0.5 mcg PO BID #360 caps 06/14/22 12/07/22 calcium carbonate 200 mg calcium 1,000 mg PO BID #0 tabs 06/14/22 12/07/22 (500 mg) chewable tablet (Tums) ibuprofen 200 mg tablet 600 mg PO PRN PRN 09/19/22 12/07/22 esomeprazole magnesium 20 mg 20 mg PO DAILY #30 caps 09/24/22 12/07/22 capsule,delayed release (Nexium) magnesium gluconate 27 mg 27 mg PO BID #60 tabs 11/08/22 12/07/22 magnesium (500 mg) tablet clonazepam 1 mg tablet 1 mg PO BID #56 tabs 12/03/22 12/07/22 cyclobenzaprine 10 mg tablet 10 mg PO TID PRN muscle spasm #30 12/03/22 12/07/22 tabs gabapentin 300 mg capsule 300 mg PO TID #270 caps 12/03/22 12/07/22 diclofenac sodium 1 % topical gel 4 g topical QID #100 grams 12/07/22 orphenadrine citrate 100 mg 100 mg PO BID #10 tabs 12/07/22 tablet,extended release benzonatate 100 mg capsule 100 mg PO TID PRN cough #14 caps 12/11/22 Previous Rx's Medication Instructions Recorded calcitriol 0.5 mcg capsule 0.5 mcg PO BID #360 caps 06/14/22 calcium carbonate 200 mg calcium 1,000 mg PO BID #0 tabs 06/14/22 (500 mg) chewable tablet (Tums) esomeprazole magnesium 20 mg 20 mg PO DAILY #30 caps 09/24/22 capsule,delayed release (Nexium) magnesium gluconate 27 mg 27 mg PO BID #60 tabs 11/08/22 magnesium (500 mg) tablet clonazepam 1 mg tablet 1 mg PO BID #56 tabs 12/03/22 cyclobenzaprine 10 mg tablet 10 mg PO TID PRN muscle spasm #30 12/03/22 tabs gabapentin 300 mg capsule 300 mg PO TID #270 caps 12/03/22 diclofenac sodium 1 % topical gel 4 g topical QID #100 grams 12/07/22 orphenadrine citrate 100 mg 100 mg PO BID #10 tabs 12/07/22 tablet,extended release benzonatate 100 mg capsule 100 mg PO TID PRN cough #14 caps 12/11/22 Allergies Allergy/AdvReac Type Severity Reaction Status Date / Time codeine Allergy Intermediate Verified 12/07/22 07:49 amoxicillin AdvReac Intermediate Nausea Verified 12/07/22 07:49 General Stated Complaint: SOB ADRIANA: 4 Review of Systems Narrative: Review of Systems Constitutional: negative Eyes: negative ENT: negative Cardiovascular: negative Respiratory: Congestion Gastrointestinal: negative : negative Musculoskeletal: negative Skin: negative Neurologic: negative Psych: negative PFSH All Active Problems (Updated 12/16/22 @ 06:34 by Ajay Kennedy MD) Dysuria (Acute) Trapezius strain (Acute) Cough (Acute) Cough (Acute) Cellulitis (Acute) Severe anxiety with panic (Chronic) Family history of coronary arteriosclerosis (Chronic) Father of MD at 50, mother had MD at 42 Elevated parathyroid hormone (Acute) Suicidal ideation (Acute) Depression (Chronic) Hypocalcemia (Chronic) Hypomagnesemia (Chronic) Depression (Chronic) Primary hyperparathyroidism (Chronic) Chronic constipation (Chronic) Multiple endocrine neoplasia type I (Chronic) Iatrogenic hypocalcemia (Acute) Abdominal pain (Acute) Common bile duct dilatation (Acute) Intrahepatic bile duct dilation (Acute) Abnormal CT scan, kidney (Acute) Sphincter of Oddi dysfunction (Chronic) Therapeutic opioid induced constipation (Acute) Pulmonary nodule 1 cm or greater in diameter (Chronic) Neck pain on left side (Acute) with shoulder, upper back pain.. torticollis, radiating into left hip/leg History of electrolyte imbalance (Acute) Complex medical condition (Chronic) Serious electrolyte imbalances, with gynecomastia, possible MEN Dx, CKD and anemia with baseline anxiety and Hx PTSD. CKD (chronic kidney disease) stage 2, GFR 60-89 ml/min (Acute) GFR 64-65, with Hx FLORESITA and GFR < 45 Gynecomastia, male (Acute) b/l, per CT (Jul 2022).. Possible 2' Methadone, Clnzpm (?). Surg eval (+)/No further action. 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 Adopted: No Caregiver/Support person: No Foster care: No Household members: none Housing: apartment Number of Children: 0 Communication Needs: None Education Level: high school Do you need help understanding health information?: Never 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 and animals: Yes (Ally) Pets and animals: dog(s) Sexually active: No Do you think of yourself as: straight/heterosexual Current gender identity: male What is your relationship status?: How often do you talk on the phone with friends or family?: twice per week How often do you get together with friends or relatives?: never Do you belong to any clubs or organized social groups?: no Panel score (0-1 are the most socially isolated patients): 0 What type of physical activity do you participate in: walking Duration: 15-30 minutes/day Frequency: 5-6 times per week Maryam/Orthodoxy: Pentecostalism Special maryam needs: No Seatbelt use: always Helmet use: Yes Helmet use: always Drive 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 truck 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 Exam Narrative Exam Narrative: Physical Examination General: alert, awake, cooperative, resting comfortably, no acute distress HEENT: normocephalic, atraumatic; PERRL, EOM intact, conjunctiva normal; no nasal discharge; moist mucous membranes, oral and pharyngeal mucosa normal, tolerating secretions Neck: supple, trachea midline; full ROM Chest: normal to inspection Respiratory: normal respiratory effort, speaking in full sentences, clear to auscultation, no wheezing, rales or rhonchi; normal voice no stridor Cardiac: regular rate, regular rhythm, S1S2 intact, no murmurs rubs or gallops Course Vital Signs Vital signs: Vital Signs Temperature 36.9 C 12/16/22 06:26 Pulse 97 H 12/16/22 06:26 Respiratory Rate 20 12/16/22 06:26 Blood Pressure 133/80 12/16/22 06:26 Pulse Oximetry 99 12/16/22 06:26 Temperature 36.9 C 12/16/22 06:26 Temperature Source Temporal Artery Scan 12/16/22 06:26 Pulse 97 H 12/16/22 06:26 Respiratory Rate 20 12/16/22 06:27 Respiratory Effort Normal, Non-Labored 12/16/22 06:27 Respiratory Depth Deep 12/16/22 06:27 Respiratory Pattern Tachypnea 12/16/22 06:27 Blood Pressure 133/80 12/16/22 06:26 Blood Pressure Position Sitting 12/16/22 06:26 Pulse Oximetry 99 12/16/22 06:26 Oxygen Delivery Method Room Air 12/16/22 06:26 Oxygen Flow Rate 0 12/16/22 06:26 Pain Level 0 12/16/22 06:26
[2022-12-16] MEDS: Dexamethasone 10 MG/ML VIAL PO (06:35)
== END 2022-12-16 06:38 | disposition home or self-care (01) ==
LOC: ER 06:54
PROVIDERS: Emergency Provider Emergency Medicine; PCP Family Medicine
DX: R05.9 Cough, unspecified (principal); R06.02 Shortness of breath
CPT/HCPCS: 99283; J1100

== ENCOUNTER 2022-12-18 06:10 | Emergency (ER) | payer OTHER, SELFPAY ==
[2022-12-18 06:14] VITALS: BP 127/62; PULSE 83; RESP 16; TEMP 37; O2SAT 100
--- NOTE | 2022-12-18 06:15 | DI.RAD_ITS ---
Exam(s) XR ANKLE RT COMPLETE EXAM: XR ANKLE RT COMPLETE CLINICAL HISTORY: pain s/p fall. TECHNIQUE: 2D digital imaging was performed. Three views. COMPARISON: No exams were available for comparison FINDINGS: BONES: No acute fracture is present. No bony destructive lesion is seen. JOINTS: The ankle mortise is normally aligned. SOFT TISSUE: Normal. IMPRESSION: Unremarkable radiographs of the right ankle. DATA REPOSITORY: RADIATION DOSE DELIVERED:
--- NOTE | 2022-12-18 06:21 | ED.GENADUL_ITS ---
Discharge Plan Disposition Patient Disposition: Home Condition: Stable Discharge Details Clinical Impression: Right ankle sprain Primary Care Provider: Brendon Vivar ED Provider: Ricardo Crabtree Home Meds and New Rx's Prescriptions: Continued methadone 10 mg/5 mL solution 110 mg PO QAM esomeprazole magnesium [Nexium] 20 mg capsule,delayed release(DR/EC) 20 mg PO DAILY Qty: 30 0RF magnesium gluconate 27 mg magnesium (500 mg) tablet 27 mg PO BID Qty: 60 3RF gabapentin 300 mg capsule 300 mg PO TID Qty: 270 3RF clonazepam 1 mg tablet 1 mg PO BID Qty: 56 0RF cyclobenzaprine 10 mg tablet 10 mg PO TID PRN (Reason: muscle spasm) Qty: 30 3RF calcium carbonate [Tums] 200 mg calcium (500 mg) tablet,chewable 1,000 mg PO BID Qty: 0 0RF Hold Instructions: Resume on 06/15/22. calcitriol 0.5 mcg capsule 0.5 mcg PO BID Qty: 360 3RF Hold Instructions: Resume on 06/15/22. ibuprofen 200 mg Tablet 600 mg PO PRN PRN diclofenac sodium 1 % gel 4 g topical QID Qty: 100 0RF Rx Instructions: apply to single knee, ankle, foot; for foot includes sole/toes/top of foot orphenadrine citrate 100 mg tablet extended release 100 mg PO BID Qty: 10 0RF benzonatate 100 mg capsule 100 mg PO TID PRN (Reason: cough) Qty: 14 0RF Rx Instructions: Take 1 capsule up to 3 times daily as needed for cough Discharge Instructions Instructions: Ankle Sprain (ED) Additional Instructions: if pain continues in a week follow up with your primary care provider. Return to the emergency department if you feel more ill or have severe uncontrolled pain Medical Decision Making 27 yo male comes in after he was just walking his dog just prior to arrival and stepped off a curb and rolled his right ankle. Did not fall or hit his head. He has pain in the lateral right ankle and is able to bear weight though does have a limp. He localizes the pain to the lateral malleolus, has full rom of the ankle, no posterior ankle pain, intact sensaiton and pulses in the foot, no visible or palpable deformity, suspect sprain but will obtain xrays to evaluate for fracture xray negative, pt stable, will provide ankle support and crutches, advised to f/u with pcp if pain continues and return precautions given Differential Diagnosis Differential Diagnosis: sprain, fracture Imaging Data Radiologic Study: Attestation: I personally reviewed and interpreted this imaging study as follows: Imaging: X-Ray My impression: no acute findings HPI General Mode of arrival: ambulatory . Date/Time Provider Initiated Documentation: 12/18/22 06:16 . Limitations to Documentation: no limitations . Information obtained by: patient . History of Present Illness 27 year old M presents to the emergency department with the chief complaint of right ankle pain, described as moderate, Patient started experiencing this hour(s) (1) and it has been constant. Rest improves symptom(s), Movement worsens symptoms . Patient notes no other symptoms.. Patient did receive the following treatments prior to arrival, NSAID Related Data Home Medications Medication Instructions Recorded Confirmed methadone 10 mg/5 mL oral solution 110 mg PO QAM 11/16/21 12/18/22 calcitriol 0.5 mcg capsule 0.5 mcg PO BID #360 caps 06/14/22 12/18/22 calcium carbonate 200 mg calcium 1,000 mg PO BID #0 tabs 06/14/22 12/18/22 (500 mg) chewable tablet (Tums) ibuprofen 200 mg tablet 600 mg PO PRN PRN 09/19/22 12/18/22 esomeprazole magnesium 20 mg 20 mg PO DAILY #30 caps 09/24/22 12/18/22 capsule,delayed release (Nexium) magnesium gluconate 27 mg 27 mg PO BID #60 tabs 11/08/22 12/18/22 magnesium (500 mg) tablet clonazepam 1 mg tablet 1 mg PO BID #56 tabs 12/03/22 12/18/22 cyclobenzaprine 10 mg tablet 10 mg PO TID PRN muscle spasm #30 12/03/22 12/18/22 tabs gabapentin 300 mg capsule 300 mg PO TID #270 caps 12/03/22 12/18/22 diclofenac sodium 1 % topical gel 4 g topical QID #100 grams 12/07/22 12/18/22 orphenadrine citrate 100 mg 100 mg PO BID #10 tabs 12/07/22 12/18/22 tablet,extended release benzonatate 100 mg capsule 100 mg PO TID PRN cough #14 caps 12/11/22 12/18/22 Previous Rx's Medication Instructions Recorded calcitriol 0.5 mcg capsule 0.5 mcg PO BID #360 caps 06/14/22 calcium carbonate 200 mg calcium 1,000 mg PO BID #0 tabs 06/14/22 (500 mg) chewable tablet (Tums) esomeprazole magnesium 20 mg 20 mg PO DAILY #30 caps 09/24/22 capsule,delayed release (Nexium) magnesium gluconate 27 mg 27 mg PO BID #60 tabs 11/08/22 magnesium (500 mg) tablet clonazepam 1 mg tablet 1 mg PO BID #56 tabs 12/03/22 cyclobenzaprine 10 mg tablet 10 mg PO TID PRN muscle spasm #30 12/03/22 tabs gabapentin 300 mg capsule 300 mg PO TID #270 caps 12/03/22 diclofenac sodium 1 % topical gel 4 g topical QID #100 grams 12/07/22 orphenadrine citrate 100 mg 100 mg PO BID #10 tabs 12/07/22 tablet,extended release benzonatate 100 mg capsule 100 mg PO TID PRN cough #14 caps 12/11/22 Allergies Allergy/AdvReac Type Severity Reaction Status Date / Time codeine Allergy Intermediate Verified 12/18/22 06:20 amoxicillin AdvReac Intermediate Nausea Verified 12/18/22 06:20 General Stated Complaint: Orthopedic ADRIANA: 4 Review of Systems All systems reviewed & are unremarkable except as noted in HPI and below Constitutional Constitutional: Denies chills, Denies fever(s) and Denies weakness Cardiovascular Cardiovascular: Denies chest pain and Denies dyspnea Respiratory Respiratory: Denies cough and Denies dyspnea Gastrointestinal Gastrointestinal: Denies abdominal pain, Denies nausea and Denies vomiting Musculoskeletal Musculoskeletal: Denies joint swelling Integumentary/Breasts Skin/Breast: Denies rash Neurologic Neurologic: Denies weakness PFSH All Active Problems (Updated 12/18/22 @ 06:24 by Ricardo Crabtree MD) Dysuria (Acute) Trapezius strain (Acute) Cough (Acute) Cough (Acute) Right ankle sprain (Acute) Cellulitis (Acute) Severe anxiety with panic (Chronic) Family history of coronary arteriosclerosis (Chronic) Father of [place] at 50, mother had [place] at 42 Elevated parathyroid hormone (Acute) Suicidal ideation (Acute) Depression (Chronic) Hypocalcemia (Chronic) Hypomagnesemia (Chronic) Depression (Chronic) Primary hyperparathyroidism (Chronic) Chronic constipation (Chronic) Multiple endocrine neoplasia type I (Chronic) Iatrogenic hypocalcemia (Acute) Abdominal pain (Acute) Common bile duct dilatation (Acute) Intrahepatic bile duct dilation (Acute) Abnormal CT scan, kidney (Acute) Sphincter of Oddi dysfunction (Chronic) Therapeutic opioid induced constipation (Acute) Pulmonary nodule 1 cm or greater in diameter (Chronic) Neck pain on left side (Acute) with shoulder, upper back pain.. torticollis, radiating into left hip/leg History of electrolyte imbalance (Acute) Complex medical condition (Chronic) Serious electrolyte imbalances, with gynecomastia, possible MEN Dx, CKD and anemia with baseline anxiety and Hx PTSD. CKD (chronic kidney disease) stage 2, GFR 60-89 ml/min (Acute) GFR 64-65, with Hx FLORESITA and GFR < 45 Gynecomastia, male (Acute) b/l, per CT (Jul 2022).. Possible 2' Methadone, Clnzpm (?). Surg eval (+)/No further action. 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 Adopted: No Caregiver/Support person: No Foster care: No Household members: none Housing: apartment Number of Children: 0 Communication Needs: None Education Level: high school Do you need help understanding health information?: Never 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 and animals: Yes (Ally) Pets and animals: dog(s) Sexually active: No Do you think of yourself as: straight/heterosexual Current gender identity: male What is your relationship status?: How often do you talk on the phone with friends or family?: twice per week How often do you get together with friends or relatives?: never Do you belong to any clubs or organized social groups?: no Panel score (0-1 are the most socially isolated patients): 0 What type of physical activity do you participate in: walking Duration: 15-30 minutes/day Frequency: 5-6 times per week Maryam/Adventism: Buddhist Special maryam needs: No Seatbelt use: always Helmet use: Yes Helmet use: always Drive 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 Exam Const General: no acute distress Orientation: alert HENMT Head: normal to inspection Ears: external ears normal General nose exam: external nose normal Mouth: moist mucous membranes Eyes General: appearance normal, both eyes and all related structures Neck Neck: normal visual inspection Resp Effort & Inspection: normal respiratory effort and able to speak in complete sentences Cardio Rate: regular rate Skin General skin exam: no rashes or lesions noted Neuro General: patient alert and patient oriented x3 Extrem General: normal to inspection Psych Mental Status: mental status grossly normal Course Vital Signs Vital signs: Vital Signs Temperature 37.0 C 12/18/22 06:14 Pulse 83 12/18/22 06:14 Respiratory Rate 16 12/18/22 06:14 Blood Pressure 127/62 12/18/22 06:14 Pulse Oximetry 100 12/18/22 06:14 Temperature 37.0 C 12/18/22 06:14 Pulse 83 12/18/22 06:14 Respiratory Rate 16 12/18/22 06:14 Respiratory Effort Normal 12/18/22 06:17 Blood Pressure 127/62 12/18/22 06:14 Blood Pressure Position Sitting 12/18/22 06:14 Pulse Oximetry 100 12/18/22 06:14 Oxygen Delivery Method Room Air 12/18/22 06:14 Oxygen Flow Rate 0 12/18/22 06:14 Pain Level 7 12/18/22 06:14
--- NOTE | 2022-12-18 06:45 | DI.VRAD_ITS ---
PROCEDURE INFORMATION: Exam: XR Right Ankle Exam date and time: 12/18/2022 6:32 AM Age: 27 years old Clinical indication: Injury or trauma; Blunt trauma; Ankle; Right; Injury date: 12/18/22; Injury details: Pain S/P fall TECHNIQUE: Imaging protocol: Radiologic exam of the right ankle. Views: 3 or more views. COMPARISON: US SOFT TISSUE EXTREMITY 10/22/2022 8:37 AM FINDINGS: Bones/joints: There is no fracture or dislocation. Osseous structures are normal. Joint spaces are maintained. Soft tissues: Normal. IMPRESSION: No acute osseous pathology. Dictated and Authenticated by: Hayden Jiang MD. Ordering:SHEMAR Silva MD
== END 2022-12-18 06:59 | disposition home or self-care (01) ==
LOC: ER 06:46
PROVIDERS: Emergency Provider Emergency Medicine; PCP Family Medicine
DX: S93.401A Sprain of unspecified ligament of right ankle, initial encounter (principal); W10.1XXA Fall (on)(from) sidewalk curb, initial encounter; Y92.414 Local residential or business street as the place of occurrence of the external cause; Y99.9 Unspecified external cause status; Y93.K1 Activity, walking an animal
CPT/HCPCS: 99283; 73610

== ENCOUNTER 2022-12-24 00:31 | Emergency (ER) | payer MEDICAID, SELFPAY ==
[2022-12-24 00:35] VITALS: BP 126/84; PULSE 94; RESP 16; TEMP 37.1; O2SAT 98
--- NOTE | 2022-12-24 00:43 | W.ED.GENAD ---
Discharge Plan Disposition Patient Disposition: Home Condition: Stable Discharge Details Clinical Impression: Acute tension headache Primary Care Provider: Brendon Vivar ED Provider: Daniel Fleming Meds and New Rx's Prescriptions: New cyclobenzaprine 5 mg tablet 5 mg PO QHS PRNQty: 20 0RF Continued methadone 10 mg/5 mL solution 110 mg PO QAM esomeprazole magnesium [Nexium] 20 mg capsule,delayed release(DR/EC) 20 mg PO DAILY Qty: 30 0RF magnesium gluconate 27 mg magnesium (500 mg) tablet 27 mg PO BID Qty: 60 3RF gabapentin 300 mg capsule 300 mg PO TID Qty: 270 3RF clonazepam 1 mg tablet 1 mg PO BID Qty: 56 0RF cyclobenzaprine 10 mg tablet 10 mg PO TID PRN (Reason: muscle spasm) Qty: 30 3RF calcium carbonate [Tums] 200 mg calcium (500 mg) tablet,chewable 1,000 mg PO BID Qty: 0 0RF Hold Instructions: Resume on 06/15/22. calcitriol 0.5 mcg capsule 0.5 mcg PO BID Qty: 360 3RF Hold Instructions: Resume on 06/15/22. ibuprofen 200 mg Tablet 600 mg PO PRN PRN diclofenac sodium 1 % gel 4 g topical QID Qty: 100 0RF Rx Instructions: apply to single knee, ankle, foot; for foot includes sole/toes/top of foot orphenadrine citrate 100 mg tablet extended release 100 mg PO BID Qty: 10 0RF benzonatate 100 mg capsule 100 mg PO TID PRN (Reason: cough) Qty: 14 0RF Rx Instructions: Take 1 capsule up to 3 times daily as needed for cough Discharge Instructions Instructions: Tension Headache (ED) Stand Alone Forms: Work Release Discharge Data Discharge Physician: Daniel Fleming Medical Decision Making MDM: Summary: Patient presents emergency department complaining of headache most likely a tension headache for which from the scalp muscles to the back of his neck. Patient received Toradol IM and Valium and will be discharged with Flexeril. He requested a work note. Data Review Analysis All the data on this patient was reviewed by me including laboratory and imaging studies as well as bedside studies performed by me Independent review of Studies Imaging No imaging was necessary for this visit Lab: Risk Stratification: patient with the not very severe tension headache will be discharged Differential Diagnosis: 1. Tension headache 2. Migraine headache 3. Cluster headache 4. 5. Consultants: Shared disposition: Patient is status disposition and will do accordingly and will be off work for 2 days Impression: Medical Records Medical records reviewed: Yes I reviewed the patient's medical records. HPI General Date/Time Provider Initiated Documentation: 12/24/22 00:38. HPI Narrative: Patient is a frequent visitor of the emergency department returns today stating that he has a headache in the frontal temporal and occipital area of his head. States that he woke up and states he has a headache that radiates from the top of his head to the right of his neck. States that he was sleeping on the couch. Denies any nausea denies any vomiting reports the headache is about a 6/10 pain. Denies any fever denies any chills denies any neck rigidity. Centimeters with Collapsed easily so Related Data Home Medications Medication Instructions Recorded Confirmed methadone 10 mg/5 mL oral solution 110 mg PO QAM 11/16/21 12/18/22 calcitriol 0.5 mcg capsule 0.5 mcg PO BID #360 caps 06/14/22 12/18/22 calcium carbonate 200 mg calcium 1,000 mg PO BID #0 tabs 06/14/22 12/18/22 (500 mg) chewable tablet (Tums) ibuprofen 200 mg tablet 600 mg PO PRN PRN 09/19/22 12/18/22 esomeprazole magnesium 20 mg 20 mg PO DAILY #30 caps 09/24/22 12/18/22 capsule,delayed release (Nexium) magnesium gluconate 27 mg 27 mg PO BID #60 tabs 11/08/22 12/18/22 magnesium (500 mg) tablet clonazepam 1 mg tablet 1 mg PO BID #56 tabs 12/03/22 12/18/22 cyclobenzaprine 10 mg tablet 10 mg PO TID PRN muscle spasm #30 12/03/22 12/18/22 tabs gabapentin 300 mg capsule 300 mg PO TID #270 caps 12/03/22 12/18/22 diclofenac sodium 1 % topical gel 4 g topical QID #100 grams 12/07/22 12/18/22 orphenadrine citrate 100 mg 100 mg PO BID #10 tabs 12/07/22 12/18/22 tablet,extended release benzonatate 100 mg capsule 100 mg PO TID PRN cough #14 caps 12/11/22 12/18/22 cyclobenzaprine 5 mg tablet 5 mg PO QHS PRN #20 tabs 12/24/22 Previous Rx's Medication Instructions Recorded calcitriol 0.5 mcg capsule 0.5 mcg PO BID #360 caps 06/14/22 calcium carbonate 200 mg calcium 1,000 mg PO BID #0 tabs 06/14/22 (500 mg) chewable tablet (Tums) esomeprazole magnesium 20 mg 20 mg PO DAILY #30 caps 09/24/22 capsule,delayed release (Nexium) magnesium gluconate 27 mg 27 mg PO BID #60 tabs 11/08/22 magnesium (500 mg) tablet clonazepam 1 mg tablet 1 mg PO BID #56 tabs 12/03/22 cyclobenzaprine 10 mg tablet 10 mg PO TID PRN muscle spasm #30 12/03/22 tabs gabapentin 300 mg capsule 300 mg PO TID #270 caps 12/03/22 diclofenac sodium 1 % topical gel 4 g topical QID #100 grams 12/07/22 orphenadrine citrate 100 mg 100 mg PO BID #10 tabs 12/07/22 tablet,extended release benzonatate 100 mg capsule 100 mg PO TID PRN cough #14 caps 12/11/22 cyclobenzaprine 5 mg tablet 5 mg PO QHS PRN #20 tabs 12/24/22 Allergies Allergy/AdvReac Type Severity Reaction Status Date / Time codeine Allergy Intermediate Verified 12/18/22 06:20 amoxicillin AdvReac Intermediate Nausea Verified 12/18/22 06:20 General Stated Complaint: Headache ADRIANA: 3 Review of Systems Narrative: Review of Systems: Constitutional: No fevers, chills, sweats Eye: No recent visual problems ENT: No ear pain, nasal congestion, sore throat Respiratory: No shortness of breath, cough Cardiovascular: No Chest pain, palpitations, syncope Gastrointestinal: No nausea, vomiting, diarrhea Genitourinary: No hematuria Joaquín/Lymph: Negative for bruising tendency, swollen lymph glands Endocrine: Negative for excessive thirst, excessive hunger Musculoskeletal: No back pain, neck pain, joint pain, muscle pain, decreased range of motion Integumentary: No rash, pruritus, abrasions Neurologic: Alert & oriented X 4 Psychiatric: No anxiety, depression PFSH All Active Problems (Updated 12/24/22 @ 00:53 by Daniel Fleming MD) Acute tension headache (Acute) Costochondritis (Acute 12/13/22) [facility] ED Dysuria (Acute) Trapezius strain (Acute) Cough (Acute) Cough (Acute) Right ankle sprain (Acute) Cellulitis (Acute) Severe anxiety with panic (Chronic) Family history of coronary arteriosclerosis (Chronic) Father of [place] at 50, mother had [place] at 42 Elevated parathyroid hormone (Acute) Suicidal ideation (Acute) Depression (Chronic) Hypocalcemia (Chronic) Hypomagnesemia (Chronic) Depression (Chronic) Primary hyperparathyroidism (Chronic) Chronic constipation (Chronic) Multiple endocrine neoplasia type I (Chronic) Iatrogenic hypocalcemia (Acute) Abdominal pain (Acute) Common bile duct dilatation (Acute) Intrahepatic bile duct dilation (Acute) Abnormal CT scan, kidney (Acute) Sphincter of Oddi dysfunction (Chronic) Therapeutic opioid induced constipation (Acute) Pulmonary nodule 1 cm or greater in diameter (Chronic) Neck pain on left side (Acute) with shoulder, upper back pain.. torticollis, radiating into left hip/leg History of electrolyte imbalance (Acute) Complex medical condition (Chronic) Serious electrolyte imbalances, with gynecomastia, possible MEN Dx, CKD and anemia with baseline anxiety and Hx PTSD. CKD (chronic kidney disease) stage 2, GFR 60-89 ml/min (Acute) GFR 64-65, with Hx FLORESITA and GFR < 45 Gynecomastia, male (Acute) b/l, per CT (Jul 2022).. Possible 2' Methadone, Clnzpm (?). Surg eval (+)/No further action. 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 Adopted: No Caregiver/Support person: No Foster care: No Household members: none Housing: apartment Number of Children: 0 Communication Needs: None Education Level: high school Do you need help understanding health information?: Never 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 and animals: Yes (Ally) Pets and animals: dog(s) Sexually active: No Do you think of yourself as: straight/heterosexual Current gender identity: male What is your relationship status?: How often do you talk on the phone with friends or family?: twice per week How often do you get together with friends or relatives?: never Do you belong to any clubs or organized social groups?: no Panel score (0-1 are the most socially isolated patients): 0 What type of physical activity do you participate in: walking Duration: 15-30 minutes/day Frequency: 5-6 times per week Maryam/Episcopal: Pentecostalism Special maryam needs: No Seatbelt use: always Helmet use: Yes Helmet use: always Drive 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 dedicated intermodal truck 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 Exam Narrative Exam Narrative: Exam; vitals signs as reported above Constitutional; In no acute distress, afebrile General: cooperative, healthy appearing, comfortable and no acute distress HEENT: Head: normal to inspection, no palpable skull fracture and normocephalic Eyes: l: appearance normal, both eyes and all related structures ]Pupils: PERRL EOM: EOM intact bilaterally Direct ophthalmoscopy: normal light reflex, normal conjunctiva, normal visual acuity Neck no JVD, supple Neck: normal visual inspection, full ROM and no lymphadenopathy Chest Chest: normal inspection of the chest Respiratory : normal respiratory effort and able to speak in complete sentences Cardio Rate: regular rate Rhythm: regular rhythm normal heart sounds S1 and S2 no murmurs, gallops, or rubs GI Inspection: normal to inspection, normal bowel sounds, soft, non tender, non distended, no organomegally Back/Spine/ no CVA tenderness Thoracic/Lumbar Spine: no tenderness or deformities Skin no rashes or lesions Neuro: patient alert and no meningeal signs, Cranial Nerves: CN's II-XI intact bilaterally, Cognition: normal cognition, Speech: speech normal, Gait: normal gait, Depp tendon reflexes normal 2+ mild tenderness to palpation to the occipital scalp muscles and the neck but full range of motion Extremities, no edema, full range of motion, normal strength l Course Vital Signs Vital signs: Vital Signs Temperature 37.1 C 12/24/22 00:35 Pulse 94 H 12/24/22 00:35 Respiratory Rate 16 12/24/22 00:35 Blood Pressure 126/84 12/24/22 00:35 Pulse Oximetry 98 12/24/22 00:35 Temperature 37.1 C 12/24/22 00:35 Temperature Source Temporal Artery Scan 12/24/22 00:35 Pulse 94 H 12/24/22 00:35 Respiratory Rate 16 12/24/22 00:35 Blood Pressure 126/84 12/24/22 00:35 Blood Pressure Position Sitting 12/24/22 00:35 Pulse Oximetry 98 12/24/22 00:35 Oxygen Delivery Method Room Air 12/24/22 00:35 Oxygen Flow Rate 0 12/24/22 00:35 Pain Level 7 12/24/22 00:35
[2022-12-24] MEDS: diazePAM 5 MG TAB PO (00:48)
[2022-12-24] MEDS: Ketorolac 30 MG/ML VIAL IM (00:48)
== END 2022-12-24 01:03 | disposition home or self-care (01) ==
PROVIDERS: Emergency Provider Emergency Medicine Emergency Medical Services; PCP Family Medicine
DX: R51.9 Headache, unspecified (principal); M54.2 Cervicalgia
CPT/HCPCS: 96372; 99284; J1885

== ENCOUNTER 2022-12-28 08:32 | Emergency (ER) | payer OTHER, SELFPAY ==
--- NOTE | 2022-12-28 08:30 | RT.EKG_ITS ---
APPROVED REPORT Exam: Resting ECG Reason for Exam: chest pain Patient Location: E HR:114 bpm ECG Measurements Heart Rate 114 AXIS ME 167 P 46 QRSd 96 QRS 62 QT 344 T 0 QTc 473 Conclusion Sinus tachycardia...rate> 99 Probable left atrial enlargement...P >50mS, <-0.10mV V1
[2022-12-28 08:36] VITALS: BP 142/85; PULSE 112; RESP 18; TEMP 37.2; O2SAT 99
--- NOTE | 2022-12-28 09:02 | ED.GENADUL_ITS ---
Discharge Plan Discharge Details Chief Complaint: Chest Pain Primary Care Provider: Brendon Vivar ED Provider: Ryne De Leon Home Meds and New Rx's Prescriptions: No Action methadone 10 mg/5 mL solution 110 mg PO QAM esomeprazole magnesium [Nexium] 20 mg capsule,delayed release(DR/EC) 20 mg PO DAILY Qty: 30 0RF magnesium gluconate 27 mg magnesium (500 mg) tablet 27 mg PO BID Qty: 60 3RF gabapentin 300 mg capsule 300 mg PO TID Qty: 270 3RF clonazepam 1 mg tablet 1 mg PO BID Qty: 56 0RF cyclobenzaprine 10 mg tablet 10 mg PO TID PRN (Reason: muscle spasm) Qty: 30 3RF calcium carbonate [Tums] 200 mg calcium (500 mg) tablet,chewable 1,000 mg PO BID Qty: 0 0RF Hold Instructions: Resume on 06/15/22. calcitriol 0.5 mcg capsule 0.5 mcg PO BID Qty: 360 3RF Hold Instructions: Resume on 06/15/22. ibuprofen 200 mg Tablet 600 mg PO PRN PRN diclofenac sodium 1 % gel 4 g topical QID Qty: 100 0RF Rx Instructions: apply to single knee, ankle, foot; for foot includes sole/toes/top of foot orphenadrine citrate 100 mg tablet extended release 100 mg PO BID Qty: 10 0RF benzonatate 100 mg capsule 100 mg PO TID PRN (Reason: cough) Qty: 14 0RF Rx Instructions: Take 1 capsule up to 3 times daily as needed for cough cyclobenzaprine 5 mg tablet 5 mg PO QHS PRNQty: 20 0RF Medical Decision Making 27-year-old male with multiple emergency department visits related to anxiety and ill-defined chest pain arm pain. EKG done on arrival demonstrates a sinus tachycardia 115. ST segments are normal as well as T waves. No change from previous EKGs. This clinical is not consistent with ACS. I have told Pedro Pablo that we will observe him in the emergency department for l ittle while and reassess him. HPI General Date/Time Provider Initiated Documentation: 12/28/22 09:02 . HPI Narrative: 27-year-old presents to the emergency room for evaluation of foot pain and arm pain. He states that he was finished some work on the computer that he did not have time to finish yesterday when HE FELT LIKE A TRAUMA HORSE IN HIS LEFT LOWER EXTREMITY. THE CHARANNETTE HORSE EXTENDED TO THE BALL OF HIS FOOT. He then tried to relax and the pain in the foot went away but unfortunately he then developed some left arm pain and left chest pain like he usually does. He tried to call himself down but got worried and anxious and decided come to the emergency room to be evaluated. No nausea no vomiting no diaphoresis. No radiation of the pain. In the emergency department he is essentially anxious but pain-free. Related Data Home Medications Medication Instructions Recorded Confirmed methadone 10 mg/5 mL oral solution 110 mg PO QAM 11/16/21 12/28/22 calcitriol 0.5 mcg capsule 0.5 mcg PO BID #360 caps 06/14/22 12/28/22 calcium carbonate 200 mg calcium 1,000 mg PO BID #0 tabs 06/14/22 12/28/22 (500 mg) chewable tablet (Tums) ibuprofen 200 mg tablet 600 mg PO PRN PRN 09/19/22 12/28/22 esomeprazole magnesium 20 mg 20 mg PO DAILY #30 caps 09/24/22 12/28/22 capsule,delayed release (Nexium) magnesium gluconate 27 mg 27 mg PO BID #60 tabs 11/08/22 12/28/22 magnesium (500 mg) tablet clonazepam 1 mg tablet 1 mg PO BID #56 tabs 12/03/22 12/28/22 cyclobenzaprine 10 mg tablet 10 mg PO TID PRN muscle spasm #30 12/03/22 12/28/22 tabs gabapentin 300 mg capsule 300 mg PO TID #270 caps 12/03/22 12/28/22 diclofenac sodium 1 % topical gel 4 g topical QID #100 grams 12/07/22 12/28/22 orphenadrine citrate 100 mg 100 mg PO BID #10 tabs 12/07/22 12/28/22 tablet,extended release benzonatate 100 mg capsule 100 mg PO TID PRN cough #14 caps 12/11/22 12/28/22 cyclobenzaprine 5 mg tablet 5 mg PO QHS PRN #20 tabs 12/24/22 12/28/22 Previous Rx's Medication Instructions Recorded calcitriol 0.5 mcg capsule 0.5 mcg PO BID #360 caps 06/14/22 calcium carbonate 200 mg calcium 1,000 mg PO BID #0 tabs 06/14/22 (500 mg) chewable tablet (Tums) esomeprazole magnesium 20 mg 20 mg PO DAILY #30 caps 09/24/22 capsule,delayed release (Nexium) magnesium gluconate 27 mg 27 mg PO BID #60 tabs 11/08/22 magnesium (500 mg) tablet clonazepam 1 mg tablet 1 mg PO BID #56 tabs 12/03/22 cyclobenzaprine 10 mg tablet 10 mg PO TID PRN muscle spasm #30 12/03/22 tabs gabapentin 300 mg capsule 300 mg PO TID #270 caps 12/03/22 diclofenac sodium 1 % topical gel 4 g topical QID #100 grams 12/07/22 orphenadrine citrate 100 mg 100 mg PO BID #10 tabs 12/07/22 tablet,extended release benzonatate 100 mg capsule 100 mg PO TID PRN cough #14 caps 12/11/22 cyclobenzaprine 5 mg tablet 5 mg PO QHS PRN #20 tabs 12/24/22 Allergies Allergy/AdvReac Type Severity Reaction Status Date / Time codeine Allergy Intermediate Verified 12/28/22 08:42 amoxicillin AdvReac Intermediate Nausea Verified 12/28/22 08:42 General Stated Complaint: Chest Pain ADRIANA: 3 Review of Systems Narrative: 10 point review of systems negative unless otherwise specified in HPI. PFSH All Active Problems (Updated 12/28/22 @ 00:01 by HAMMAD WILEY) Acute tension headache (Acute) Costochondritis (Acute 12/13/22) [facility] Dysuria (Acute) Trapezius strain (Acute) Cough (Acute) Cough (Acute) Right ankle sprain (Acute) Cellulitis (Acute) Severe anxiety with panic (Chronic) Family history of coronary arteriosclerosis (Chronic) Father of [place] at 50, mother had [place] at 42 Elevated parathyroid hormone (Acute) Suicidal ideation (Acute) Depression (Chronic) Hypocalcemia (Chronic) Hypomagnesemia (Chronic) Depression (Chronic) Primary hyperparathyroidism (Chronic) Chronic constipation (Chronic) Multiple endocrine neoplasia type I (Chronic) Iatrogenic hypocalcemia (Acute) Abdominal pain (Acute) Common bile duct dilatation (Acute) Intrahepatic bile duct dilation (Acute) Abnormal CT scan, kidney (Acute) Sphincter of Oddi dysfunction (Chronic) Therapeutic opioid induced constipation (Acute) Pulmonary nodule 1 cm or greater in diameter (Chronic) Neck pain on left side (Acute) with shoulder, upper back pain.. torticollis, radiating into left hip/leg History of electrolyte imbalance (Acute) Complex medical condition (Chronic) Serious electrolyte imbalances, with gynecomastia, possible MEN Dx, CKD and anemia with baseline anxiety and Hx PTSD. CKD (chronic kidney disease) stage 2, GFR 60-89 ml/min (Acute) GFR 64-65, with Hx FLORESITA and GFR < 45 Gynecomastia, male (Acute) b/l, per CT (Jul 2022).. Possible 2' Methadone, Clnzpm (?). Surg eval (+)/No further action. 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 Adopted: No Caregiver/Support person: No Foster care: No Household members: none Housing: house Number of Children: 0 Communication Needs: None Education Level: high school Do you need help understanding health information?: Never 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 and animals: Yes (Ally) Pets and animals: dog(s) Sexually active: No Do you think of yourself as: straight/heterosexual Current gender identity: male What is your relationship status?: How often do you talk on the phone with friends or family?: twice per week How often do you get together with friends or relatives?: never Do you belong to any clubs or organized social groups?: no Panel score (0-1 are the most socially isolated patients): 0 What type of physical activity do you participate in: walking Duration: 15-30 minutes/day Frequency: 5-6 times per week Maryam/Evangelical: Episcopalian Special maryam needs: No Seatbelt use: always Helmet use: Yes Helmet use: always Drive 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 Exam Narrative Exam Narrative: General: A,A Ox3, Calm, no apparent distress, well developed, pleasant and cooperative Head Size/Shape: normocephalic, atraumatic Eyes Pupils: PERRLA Extraocular Mobility: intact and symmetrical Conjunctiva: non-injected, anicteric, no discharge Ears, Nose, Throat Nares: patent bilaterally Oral Cavity: moist Neck: Supple Respiratory Respiratory Effort: no dyspnea Auscultation: clear to auscultation bilaterally, normal breath sounds, no wheezing, no rales/crackles Cardiovascular Heart Auscultation: regular rate and rhythm, normal S1, normal S2, no murmurs, no rubs, no gallops, Pulse Quality: +2 equal bilaterally, location(s) radial Abdomen Inspection and Palpation: soft, non-tender, non-distended, no hepatosplenomegaly Musculoskeletal System Joints, Bones, and Muscles: no deformities Extremities: warm and well-perfused, no cyanosis, capillary refill <2 seconds Skin Skin Inspection: no rash, no lesions, no bruising Neurological Psychiatric: good insight, good judgement, normal mood and affect Course Vital Signs Vital signs: Vital Signs Temperature 37.2 C 12/28/22 08:36 Pulse 112 H 12/28/22 08:36 Respiratory Rate 18 12/28/22 08:36 Blood Pressure 142/85 H 12/28/22 08:36 Pulse Oximetry 99 12/28/22 08:36 Temperature 37.2 C 12/28/22 08:36 Temperature Source Skin 12/28/22 08:36 Pulse 112 H 12/28/22 08:36 Respiratory Rate 18 12/28/22 08:36 Blood Pressure 142/85 H 12/28/22 08:36 Pulse Oximetry 99 12/28/22 08:36 Oxygen Delivery Method Room Air 12/28/22 08:36 Oxygen Flow Rate 0 12/28/22 08:36 Pain Level 5 12/28/22 08:36
[2022-12-28 09:25] VITALS: RESP 16
== END 2022-12-28 10:10 | disposition home or self-care (01) ==
PROVIDERS: Emergency Provider Emergency Medicine; PCP Family Medicine
DX: F41.9 Anxiety disorder, unspecified (principal)
CPT/HCPCS: 93005; 99283; 93010

== ENCOUNTER 2023-01-02 08:23 | Emergency (ER) | payer OTHER, SELFPAY ==
[2023-01-02 08:29] VITALS: BP 118/70; PULSE 95; RESP 18; TEMP 37.1; O2SAT 94
--- NOTE | 2023-01-02 08:40 | ED.GENADUL_ITS ---
Discharge Plan Disposition Patient Disposition: Home Condition: Stable Discharge Details Clinical Impression: Tingling in extremities Primary Care Provider: Brendon Vivar ED Provider: Antoinette Templeton Home Meds and New Rx's Prescriptions: Continued methadone 10 mg/5 mL solution 110 mg PO QAM esomeprazole magnesium [Nexium] 20 mg capsule,delayed release(DR/EC) 20 mg PO DAILY Qty: 30 0RF magnesium gluconate 27 mg magnesium (500 mg) tablet 27 mg PO BID Qty: 60 3RF gabapentin 300 mg capsule 300 mg PO TID Qty: 270 3RF cyclobenzaprine 10 mg tablet 10 mg PO TID PRN (Reason: muscle spasm) Qty: 30 3RF calcium carbonate [Tums] 200 mg calcium (500 mg) tablet,chewable 1,000 mg PO BID Qty: 0 0RF Hold Instructions: Resume on 06/15/22. calcitriol 0.5 mcg capsule 0.5 mcg PO BID Qty: 360 3RF Hold Instructions: Resume on 06/15/22. clonazepam 1 mg tablet 1 mg PO BID Qty: 14 0RF ibuprofen 200 mg Tablet 600 mg PO PRN PRN diclofenac sodium 1 % gel 4 g topical QID Qty: 100 0RF Rx Instructions: apply to single knee, ankle, foot; for foot includes sole/toes/top of foot orphenadrine citrate 100 mg tablet extended release 100 mg PO BID Qty: 10 0RF benzonatate 100 mg capsule 100 mg PO TID PRN (Reason: cough) Qty: 14 0RF Rx Instructions: Take 1 capsule up to 3 times daily as needed for cough cyclobenzaprine 5 mg tablet 5 mg PO QHS PRNQty: 20 0RF Discharge Instructions Instructions: Hypocalcemia (ED) Additional Instructions: Calcium today was within normal limits. Please continue taking your medications as previously prescribed. Follow up with primary care provider in 3-5 days. Return to ED sooner if any worsening or concerns. Increase oral fluids. Consider doing some yard work, going outside, getting some sunshine! Referrals: Brendon Vivar DO [Primary Care Provider] - 5 days Discharge Data Discharge Date/Time-TO BE ENTERED AT DEPARTURE: 01/02/23 10:09 Medical Decision Making 27-year-old male with past medical history of anxiety depression hyperlipidemia hypocalcemia PTSD chronic kidney disease stage II, sphincter of Oddi dysfunction, and post parathyroidectomy in March 2022 presents to the ER after realizing he has not taken his 1000 mg of Tums which he takes daily for the last for 5 days. He reports that he accidentally placed them away from his other medications. He is complaining of tingling in his feet and arm pain. No other associated symptoms or complaints. He did take his 1000 mg of calcium carbonate chewable tablets this morning as prescribed. IV ordered and CMP. Calcium within normal limits 8.7. Discussed results with patient who verbalized understanding. Instructed to continue taking his previously prescribed medicati ons he verbalizes understanding. Vital signs within normal limits. Instructed to follow-up with PCP and increase oral fluids. This text was generated using [employer] dictation system, please disregard any oddities of phrase or misspellings. Medical Records Medical records reviewed: Yes I reviewed the patient's medical records. Lab Data Lab results reviewed: Yes I reviewed the patient's lab results. Labs: Laboratory Tests Range/Units 01/02/23 08:50 Sodium (136-145) mmol/L 140 Potassium (3.5-5.1) mmol/L 3.9 Chloride (98-107) mmol/L 103 Carbon Dioxide (21.0-32.0) mmol/L 32.9 H Anion Gap (3-11) mmol/L 4.1 BUN (7-18) mg/dL 19 H Creatinine (0.70-1.30) mg/dL 1.4 H Est GFR (CKD-EPI 2020) (mL/min/1.73m2) 69.77 Glucose (74-106) mg/dL 129 H Calcium (8.5-10.1) mg/dL 8.7 Total Bilirubin (0.2-1.0) mg/dL 0.2 AST (15-37) U/L 26 ALT (16-63) U/L 47 Alkaline Phosphatase (46-116) U/L 134 H Total Protein (6.4-8.2) g/dL 7.6 Albumin (3.4-5.0) g/dL 3.1 L HPI General Mode of arrival: ambulatory . Date/Time Provider Initiated Documentation: 01/02/23 08:37 . Limitations to Documentation: no limitations . Information obtained by: patient, RN notes reviewed and old records reviewed . HPI Narrative: 27-year-old male with past medical history of anxiety depression hyperlipidemia hypocalcemia PTSD chronic kidney disease stage II, sphincter of Oddi dysfunction, and post parathyroidectomy in March 2022 presents to the ER after realizing he has not taken his 1000 mg of Tums which he takes daily for the last for 5 days. He reports that he accidentally placed them away from his other medications. He is complaining of tingling in his feet and arm pain. No other associated symptoms or complaints. He did take his 1000 mg of calcium carbonate chewable tablets this morning as prescribed. Related Data Home Medications Medication Instructions Recorded Confirmed methadone 10 mg/5 mL oral solution 110 mg PO QAM 11/16/21 01/02/23 calcitriol 0.5 mcg capsule 0.5 mcg PO BID #360 caps 06/14/22 01/02/23 calcium carbonate 200 mg calcium 1,000 mg PO BID #0 tabs 06/14/22 01/02/23 (500 mg) chewable tablet (Tums) ibuprofen 200 mg tablet 600 mg PO PRN PRN 09/19/22 01/02/23 esomeprazole magnesium 20 mg 20 mg PO DAILY #30 caps 09/24/22 01/02/23 capsule,delayed release (Nexium) magnesium gluconate 27 mg 27 mg PO BID #60 tabs 11/08/22 01/02/23 magnesium (500 mg) tablet cyclobenzaprine 10 mg tablet 10 mg PO TID PRN muscle spasm #30 12/03/22 01/02/23 tabs gabapentin 300 mg capsule 300 mg PO TID #270 caps 12/03/22 01/02/23 diclofenac sodium 1 % topical gel 4 g topical QID #100 grams 12/07/22 01/02/23 orphenadrine citrate 100 mg 100 mg PO BID #10 tabs 12/07/22 01/02/23 tablet,extended release benzonatate 100 mg capsule 100 mg PO TID PRN cough #14 caps 12/11/22 01/02/23 cyclobenzaprine 5 mg tablet 5 mg PO QHS PRN #20 tabs 12/24/22 01/02/23 clonazepam 1 mg tablet 1 mg PO BID #14 tabs 12/30/22 01/02/23 Previous Rx's Medication Instructions Recorded calcitriol 0.5 mcg capsule 0.5 mcg PO BID #360 caps 06/14/22 calcium carbonate 200 mg calcium 1,000 mg PO BID #0 tabs 06/14/22 (500 mg) chewable tablet (Tums) esomeprazole magnesium 20 mg 20 mg PO DAILY #30 caps 09/24/22 capsule,delayed release (Nexium) magnesium gluconate 27 mg 27 mg PO BID #60 tabs 11/08/22 magnesium (500 mg) tablet cyclobenzaprine 10 mg tablet 10 mg PO TID PRN muscle spasm #30 12/03/22 tabs gabapentin 300 mg capsule 300 mg PO TID #270 caps 12/03/22 diclofenac sodium 1 % topical gel 4 g topical QID #100 grams 12/07/22 orphenadrine citrate 100 mg 100 mg PO BID #10 tabs 12/07/22 tablet,extended release benzonatate 100 mg capsule 100 mg PO TID PRN cough #14 caps 12/11/22 cyclobenzaprine 5 mg tablet 5 mg PO QHS PRN #20 tabs 12/24/22 clonazepam 1 mg tablet 1 mg PO BID #14 tabs 12/30/22 Allergies Allergy/AdvReac Type Severity Reaction Status Date / Time codeine Allergy Intermediate Verified 01/02/23 08:34 amoxicillin AdvReac Intermediate Nausea Verified 01/02/23 08:34 General Stated Complaint: GenMedical ADRIANA: 3 Review of Systems All systems reviewed & are unremarkable except as noted in HPI and below Musculoskeletal Musculoskeletal: Reports tingling Neurologic Neurologic: Reports as per HPI, Reports tingling and Reports other (Arm pain) [facility] All Active Problems (Updated 01/02/23 @ 09:47 by Antoinette Templeton NP) Acute tension headache (Acute) Anxiety (Chronic) Tingling in extremities (Acute) Costochondritis (Acute 12/13/22) [facility] Dysuria (Acute) Trapezius strain (Acute) Cough (Acute) Cough (Acute) Right ankle sprain (Acute) Cellulitis (Acute) Severe anxiety with panic (Chronic) Family history of coronary arteriosclerosis (Chronic) Father of [place] at 50, mother had [place] at 42 Elevated parathyroid hormone (Acute) Suicidal ideation (Acute) Depression (Chronic) Hypocalcemia (Chronic) Hypomagnesemia (Chronic) Depression (Chronic) Primary hyperparathyroidism (Chronic) Chronic constipation (Chronic) Multiple endocrine neoplasia type I (Chronic) Iatrogenic hypocalcemia (Acute) Abdominal pain (Acute) Common bile duct dilatation (Acute) Intrahepatic bile duct dilation (Acute) Abnormal CT scan, kidney (Acute) Sphincter of Oddi dysfunction (Chronic) Therapeutic opioid induced constipation (Acute) Pulmonary nodule 1 cm or greater in diameter (Chronic) Neck pain on left side (Acute) with shoulder, upper back pain.. torticollis, radiating into left hip/leg History of electrolyte imbalance (Acute) Complex medical condition (Chronic) Serious electrolyte imbalances, with gynecomastia, possible MEN Dx, CKD and anemia with baseline anxiety and Hx PTSD. CKD (chronic kidney disease) stage 2, GFR 60-89 ml/min (Acute) GFR 64-65, with Hx FLORESITA and GFR < 45 Gynecomastia, male (Acute) b/l, per CT (Jul 2022).. Possible 2' Methadone, Clnzpm (?). Surg eval (+)/No further action. 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 Adopted: No Caregiver/Support person: No Foster care: No Household members: none Housing: house Number of Children: 0 Communication Needs: None Education Level: high school Do you need help understanding health information?: Never 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 and animals: Yes (Ally) Pets and animals: dog(s) Sexually active: No Do you think of yourself as: straight/heterosexual Current gender identity: male What is your relationship status?: How often do you talk on the phone with friends or family?: twice per week How often do you get together with friends or relatives?: never Do you belong to any clubs or organized social groups?: no Panel score (0-1 are the most socially isolated patients): 0 What type of physical activity do you participate in: walking Duration: 15-30 minutes/day Frequency: 5-6 times per week Maryam/Samaritan: Adventism Special maryam needs: No Seatbelt use: always Helmet use: Yes Helmet use: always Drive 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 Appears stated age. Overweight body habitus. Head: Normocephalic, no trauma. Eyes: Pupils PERRL, Red reflex noted, EOM's intact. Eyelids symmetrical without lesions, discharge, or swelling. Chest: RRR, Normal S1, S2, distal pulses intact. Resp: Lungs clear to auscultation bilaterally, no wheezes, rales, or rhonchi. Abdomen: Soft, non-distended, Normoactive bowel sounds all 4 quads. Musculoskeletal: Normal gait, 5/5 strength to all four extremities. Skin: No suspicious rashes or lesions. Capillary refill less than 2 sec. Neurologic: Cranial nerves II-XII intact. Alert and oriented x 3. Motor: No deficits noted. Sensory: Intact bilaterally all 4 extremities. Hematologic/Lymphatic: No ecchymosis, no lymphadenopathy. Course Vital Signs Vital signs: Vital Signs Temperature 37.1 C 01/02/23 08:29 Pulse 95 H 01/02/23 08:29 Respiratory Rate 18 01/02/23 08:29 Blood Pressure 118/70 01/02/23 08:29 Pulse Oximetry 94 01/02/23 08:29 Temperature 37.1 C 01/02/23 08:29 Temperature Source Oral 01/02/23 08:29 Pulse 95 H 01/02/23 08:29 Respiratory Rate 18 01/02/23 08:29 Respiratory Effort Normal 01/02/23 08:33 Blood Pressure 118/70 01/02/23 08:29 Blood Pressure Position Supine 01/02/23 08:29 Pulse Oximetry 94 01/02/23 08:29 Oxygen Delivery Method Room Air 01/02/23 08:29 Oxygen Flow Rate 0 01/02/23 08:29 Pain Level 4 01/02/23 08:29
[2023-01-02 09:04] VITALS: RESP 18
[2023-01-02 09:20] LABS: ALT 47 U/L (16-63); AST 26 U/L (15-37); Albumin 3.1 g/dL (3.4-5.0); Alkaline Phosphatase 134 U/L (46-116); Anion Gap 4.1 mmol/L (3-11); BUN 19 mg/dL (7-18); Bilirubin, Total 0.2 mg/dL (0.2-1.0); CO2 32.9 mmol/L (21.0-32.0); CREATININE 1.4 mg/dL (0.70-1.30); Calcium 8.7 mg/dL (8.5-10.1); Chloride 103 mmol/L (98-107); Estimated GFR 69.77 (mL/min/1.73m2); Glucose 129 mg/dL (74-106); Potassium 3.9 mmol/L (3.5-5.1); Sodium 140 mmol/L (136-145); Total Protein 7.6 g/dL (6.4-8.2)
[2023-01-02 09:58] VITALS: BP 102/73; PULSE 88; O2SAT 96
[2023-01-02 10:05] VITALS: BP 102/73; PULSE 88; RESP 18; TEMP 37.1; O2SAT 96
== END 2023-01-02 10:09 | disposition home or self-care (01) ==
PROVIDERS: Emergency Provider Registered Nurse Emergency; PCP Family Medicine
DX: R20.2 Paresthesia of skin (principal); E83.51 Hypocalcemia; F41.9 Anxiety disorder, unspecified; F32.A Depression, unspecified; E78.5 Hyperlipidemia, unspecified; I12.9 Hypertensive chronic kidney disease with stage 1 through stage 4 chronic kidney disease, or unspecified chronic kidney disease; N18.2 Chronic kidney disease, stage 2 (mild); E89.2 Postprocedural hypoparathyroidism
CPT/HCPCS: 36415; 80053; 99283

== ENCOUNTER 2023-01-06 07:48 | Emergency (ER) | payer OTHER, SELFPAY ==
[2023-01-06 07:51] VITALS: BP 115/69; PULSE 90; RESP 16; TEMP 36.8; O2SAT 97
--- NOTE | 2023-01-06 08:41 | W.ED.GENAD ---
Discharge Plan Disposition Patient Disposition: Home Condition: Stable Discharge Details Clinical Impression: Dental infection Primary Care Provider: Brendon Vivar ED Provider: Lester Bundy Home Meds and New Rx's Prescriptions: New penicillin V potassium 500 mg tablet 500 mg PO QID Qty: 50 0RF Continued methadone 10 mg/5 mL solution 110 mg PO QAM esomeprazole magnesium [Nexium] 20 mg capsule,delayed release(DR/EC) 20 mg PO DAILY Qty: 30 0RF magnesium gluconate 27 mg magnesium (500 mg) tablet 27 mg PO BID Qty: 60 3RF gabapentin 300 mg capsule 300 mg PO TID Qty: 270 3RF cyclobenzaprine 10 mg tablet 10 mg PO TID PRN (Reason: muscle spasm) Qty: 30 3RF calcium carbonate [Tums] 200 mg calcium (500 mg) tablet,chewable 1,000 mg PO BID Qty: 0 0RF Hold Instructions: Resume on 06/15/22. calcitriol 0.5 mcg capsule 0.5 mcg PO BID Qty: 360 3RF Hold Instructions: Resume on 06/15/22. clonazepam 1 mg tablet 1 mg PO BID Qty: 14 0RF ibuprofen 200 mg Tablet 600 mg PO PRN PRN diclofenac sodium 1 % gel 4 g topical QID Qty: 100 0RF Rx Instructions: apply to single knee, ankle, foot; for foot includes sole/toes/top of foot orphenadrine citrate 100 mg tablet extended release 100 mg PO BID Qty: 10 0RF benzonatate 100 mg capsule 100 mg PO TID PRN (Reason: cough) Qty: 14 0RF Rx Instructions: Take 1 capsule up to 3 times daily as needed for cough cyclobenzaprine 5 mg tablet 5 mg PO QHS PRNQty: 20 0RF Discharge Instructions Instructions: Dental Abscess (ED) Additional Instructions: Please take the full course of antibiotic as prescribed. Please follow-up with your dentist. Please contact your primary care physician to arrange follow-up. Return to the ER immediately for any worsening or new concerning symptoms. Referrals: Brendon Vivar DO [Primary Care Provider] - Medical Decision Making 27-year-old male here with dental infection. No palpable abscess. Plan to treat with antibiotic. Patient notes he has adverse reaction of nausea to amoxicillin but has had penicillin without any reaction. Plan to treat with penicillin. Usual customary discharge instructions reviewed with the patient. He understands importance of timely follow-up with dentist and has a scheduled appointment. HPI General Mode of arrival: ambulatory. Date/Time Provider Initiated Documentation: 01/06/23 08:03. Limitations to Documentation: no limitations. Information obtained by: patient. HPI Narrative: 27-year-old male here with chief complaint of dental pain. Patient is concerned he has a dental infection over the past 1-1/2 weeks. Pain is localized to right lower molar. He has associated mild facial swelling and discomfort. He states he had low-grade fever last night. Patient states he has an appointment scheduled with a dentist in the next couple weeks. No difficulty swallowing. No change in speech Related Data Home Medications Medication Instructions Recorded Confirmed methadone 10 mg/5 mL oral solution 110 mg PO QAM 11/16/21 01/06/23 calcitriol 0.5 mcg capsule 0.5 mcg PO BID #360 caps 06/14/22 01/06/23 calcium carbonate 200 mg calcium 1,000 mg PO BID #0 tabs 06/14/22 01/06/23 (500 mg) chewable tablet (Tums) ibuprofen 200 mg tablet 600 mg PO PRN PRN 09/19/22 01/06/23 esomeprazole magnesium 20 mg 20 mg PO DAILY #30 caps 09/24/22 01/06/23 capsule,delayed release (Nexium) magnesium gluconate 27 mg 27 mg PO BID #60 tabs 11/08/22 01/06/23 magnesium (500 mg) tablet cyclobenzaprine 10 mg tablet 10 mg PO TID PRN muscle spasm #30 12/03/22 01/06/23 tabs gabapentin 300 mg capsule 300 mg PO TID #270 caps 12/03/22 01/06/23 diclofenac sodium 1 % topical gel 4 g topical QID #100 grams 12/07/22 01/06/23 orphenadrine citrate 100 mg 100 mg PO BID #10 tabs 12/07/22 01/06/23 tablet,extended release benzonatate 100 mg capsule 100 mg PO TID PRN cough #14 caps 12/11/22 01/06/23 cyclobenzaprine 5 mg tablet 5 mg PO QHS PRN #20 tabs 12/24/22 01/06/23 clonazepam 1 mg tablet 1 mg PO BID #14 tabs 12/30/22 01/06/23 penicillin V potassium 500 mg 500 mg PO QID #50 tabs 01/06/23 tablet Previous Rx's Medication Instructions Recorded calcitriol 0.5 mcg capsule 0.5 mcg PO BID #360 caps 06/14/22 calcium carbonate 200 mg calcium 1,000 mg PO BID #0 tabs 06/14/22 (500 mg) chewable tablet (Tums) esomeprazole magnesium 20 mg 20 mg PO DAILY #30 caps 09/24/22 capsule,delayed release (Nexium) magnesium gluconate 27 mg 27 mg PO BID #60 tabs 11/08/22 magnesium (500 mg) tablet cyclobenzaprine 10 mg tablet 10 mg PO TID PRN muscle spasm #30 12/03/22 tabs gabapentin 300 mg capsule 300 mg PO TID #270 caps 12/03/22 diclofenac sodium 1 % topical gel 4 g topical QID #100 grams 12/07/22 orphenadrine citrate 100 mg 100 mg PO BID #10 tabs 12/07/22 tablet,extended release benzonatate 100 mg capsule 100 mg PO TID PRN cough #14 caps 12/11/22 cyclobenzaprine 5 mg tablet 5 mg PO QHS PRN #20 tabs 12/24/22 clonazepam 1 mg tablet 1 mg PO BID #14 tabs 12/30/22 penicillin V potassium 500 mg 500 mg PO QID #50 tabs 01/06/23 tablet Allergies Allergy/AdvReac Type Severity Reaction Status Date / Time codeine Allergy Intermediate Verified 01/06/23 07:54 amoxicillin AdvReac Intermediate Nausea Verified 01/06/23 07:54 General Stated Complaint: DentalOral ADRIANA: 4 Review of Systems Narrative: As per HPI PFSH All Active Problems Acute tension headache (Acute) Anxiety (Chronic) Tingling in extremities (Acute) Dental infection (Acute) Costochondritis (Acute 12/13/22) [facility] ED Trapezius strain (Acute) Cough (Acute) Cough (Acute) Right ankle sprain (Acute) Cellulitis (Acute) Severe anxiety with panic (Chronic) Family history of coronary arteriosclerosis (Chronic) Father of [place] at 50, mother had [place] at 42 Elevated parathyroid hormone (Acute) Suicidal ideation (Acute) Depression (Chronic) Hypocalcemia (Chronic) Hypomagnesemia (Chronic) Depression (Chronic) Primary hyperparathyroidism (Chronic) Chronic constipation (Chronic) Multiple endocrine neoplasia type I (Chronic) Iatrogenic hypocalcemia (Acute) Abdominal pain (Acute) Common bile duct dilatation (Acute) Intrahepatic bile duct dilation (Acute) Abnormal CT scan, kidney (Acute) Sphincter of Oddi dysfunction (Chronic) Therapeutic opioid induced constipation (Acute) Pulmonary nodule 1 cm or greater in diameter (Chronic) Neck pain on left side (Acute) with shoulder, upper back pain.. torticollis, radiating into left hip/leg History of electrolyte imbalance (Acute) Complex medical condition (Chronic) Serious electrolyte imbalances, with gynecomastia, possible MEN Dx, CKD and anemia with baseline anxiety and Hx PTSD. CKD (chronic kidney disease) stage 2, GFR 60-89 ml/min (Acute) GFR 64-65, with Hx FLORESITA and GFR < 45 Gynecomastia, male (Acute) b/l, per CT (Jul 2022).. Possible 2' Methadone, Clnzpm (?). Surg eval (+)/No further action. 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 Adopted: No Caregiver/Support person: No Foster care: No Household members: none Housing: house Number of Children: 0 Communication Needs: None Education Level: high school Do you need help understanding health information?: Never 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 and animals: Yes (Ally) Pets and animals: dog(s) Sexually active: No Do you think of yourself as: straight/heterosexual Current gender identity: male What is your relationship status?: How often do you talk on the phone with friends or family?: twice per week How often do you get together with friends or relatives?: never Do you belong to any clubs or organized social groups?: no Panel score (0-1 are the most socially isolated patients): 0 What type of physical activity do you participate in: walking Duration: 15-30 minutes/day Frequency: 5-6 times per week Maryam/Religious: Pentecostalism Special maryam needs: No Seatbelt use: always Helmet use: Yes Helmet use: always Drive 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 bulk 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 Exam Const General: cooperative and no acute distress HENMT Mouth: moist mucous membranes Teeth and gingiva: poor dentition and other (chronic dental decay lower and upper molars, no fluctuance/palpable abscess) Throat: posterior oropharynx normal Other: no stridor, no trismus Eyes Conjunctivae: normal conjunctivae Sclera: normal sclerae EOM: EOM intact bilaterally Neck Neck: trachea midline and supple Course Vital Signs Vital signs: Vital Signs Temperature 36.8 C 01/06/23 07:51 Pulse 90 01/06/23 07:51 Respiratory Rate 16 01/06/23 07:51 Blood Pressure 115/69 01/06/23 07:51 Pulse Oximetry 97 01/06/23 07:51 Temperature 36.8 C 01/06/23 07:51 Temperature Source Skin 01/06/23 07:51 Pulse 90 01/06/23 07:51 Respiratory Rate 16 01/06/23 07:51 Respiratory Effort Non-Labored 01/06/23 07:59 Blood Pressure 115/69 01/06/23 07:51 Blood Pressure Position Sitting 01/06/23 07:51 Pulse Oximetry 97 01/06/23 07:51 Oxygen Delivery Method Room Air 01/06/23 07:51 Oxygen Flow Rate 0 01/06/23 07:51 Pain Level 7 01/06/23 07:51
[2023-01-06] MEDS: Penicillin V POTASSIUM 500 MG TAB PO (08:51)
[2023-01-06 08:52] VITALS: BP 126/74; PULSE 80; RESP 16; O2SAT 98
== END 2023-01-06 08:55 | disposition home or self-care (01) ==
PROVIDERS: Emergency Provider Student in an Organized Health Care Education/Training Program; PCP Family Medicine
DX: K04.7 Periapical abscess without sinus (principal)
CPT/HCPCS: 99283; 99284

== ENCOUNTER 2023-01-07 17:46 | Emergency (ER) | payer OTHER, SELFPAY ==
[2023-01-07 18:09] VITALS: BP 130/79; PULSE 114; RESP 20; TEMP 36.9; O2SAT 99
--- NOTE | 2023-01-07 18:55 | W.ED.GENAD ---
Discharge Plan Disposition Patient Disposition: Home Condition: Stable Discharge Details Clinical Impression: Allergic reaction to penicillin Primary Care Provider: Brendon Vivar ED Provider: Antoinette Templeton Home Meds and New Rx's Prescriptions: New clindamycin HCl 150 mg capsule 450 mg PO TID 7 Days Qty: 63 0RF Rx Instructions: Take 3 capsules 3 times a day for the next 7 days Continued methadone 10 mg/5 mL solution 110 mg PO QAM magnesium gluconate 27 mg magnesium (500 mg) tablet 27 mg PO BID Qty: 60 3RF gabapentin 300 mg capsule 300 mg PO TID Qty: 270 3RF cyclobenzaprine 10 mg tablet 10 mg PO TID PRN (Reason: muscle spasm) Qty: 30 3RF prednisone 50 mg tablet 50 mg PO DAILY 7 Days Qty: 7 0RF calcium carbonate [Tums] 200 mg calcium (500 mg) tablet,chewable 1,000 mg PO BID Qty: 0 0RF Hold Instructions: Resume on 06/15/22. calcitriol 0.5 mcg capsule 0.5 mcg PO BID Qty: 360 3RF Hold Instructions: Resume on 06/15/22. clonazepam 1 mg tablet 1 mg PO BID Qty: 14 0RF diclofenac sodium 1 % gel 4 g topical QID Qty: 100 0RF Rx Instructions: apply to single knee, ankle, foot; for foot includes sole/toes/top of foot benzonatate 100 mg capsule 100 mg PO TID PRN (Reason: cough) Qty: 14 0RF Rx Instructions: Take 1 capsule up to 3 times daily as needed for cough Discontinued penicillin V potassium 500 mg tablet 500 mg PO QID Qty: 50 0RF Discharge Instructions Instructions: General Allergic Reaction (ED) Additional Instructions: Please stop the penicillin. Begin clindamycin which you were given here. You may take Benadryl 1 or 2 tablets every 6-8 hours as needed for itching and rash. Take the clindamycin with yogurt or a probiotic. Follow up with primary care provider in 3-5 days. Return to ED sooner if any worsening or concerns. Increase oral fluids. Referrals: Brendon Vivar DO [Primary Care Provider] - 2 weeks Discharge Data Discharge Date/Time-TO BE ENTERED AT DEPARTURE: 01/07/23 19:33 Medical Decision Making 27-year-old male who is well-known to the department presents with possible allergic reaction to penicillin which he took for tooth infection earlier today. Approximately 3 hours ago he does have slight red rash noted to his chest. No wheezing noted. He reports that he thought his throat was about to swell up he is speaking in full sentences. Sleeping upon arrival to into the room. Vital signs are stable. He does have a allergy to amoxicillin listed on his allergy list. He also did physical therapy today. I will tell him to stop the penicillin and prescribed clindamycin. Lungs are clear to auscultation on physical exam. He does have a small amount of redness noted to his chest. I did instruct him to stop penicillin, take Benadryl at home no wheezing noted. Patient is speaking in full sentences. Clindamycin ordered in lieu of the penicillin. Patient discharged to home with HurriCaine gel she requested. This text was generated using [employer] system, please disregard any oddities of phrase or misspellings. Medical Records Medical records reviewed: Yes I reviewed the patient's medical records. HPI General Mode of arrival: ambulatory. Date/Time Provider Initiated Documentation: 01/07/23 18:02. Limitations to Documentation: no limitations. Information obtained by: RN notes reviewed and old records reviewed. HPI Narrative: 27-year-old male who is well-known to the department presents with possible allergic reaction to penicillin which he took for tooth infection earlier today. Approximately 3 hours ago he does have slight red rash noted to his chest. No wheezing noted. He reports that he thought his throat was about to swell up he is speaking in full sentences. Sleeping upon arrival to into the room. Vital signs are stable. He does have a allergy to amoxicillin listed on his allergy list. He also did physical therapy today. I will tell him to stop the penicillin and prescribed clindamycin. Related Data Home Medications Medication Instructions Recorded Confirmed methadone 10 mg/5 mL oral solution 110 mg PO QAM 11/16/21 01/06/23 calcitriol 0.5 mcg capsule 0.5 mcg PO BID #360 caps 06/14/22 01/06/23 calcium carbonate 200 mg calcium 1,000 mg PO BID #0 tabs 06/14/22 01/06/23 (500 mg) chewable tablet (Tums) magnesium gluconate 27 mg 27 mg PO BID #60 tabs 11/08/22 01/06/23 magnesium (500 mg) tablet cyclobenzaprine 10 mg tablet 10 mg PO TID PRN muscle spasm #30 12/03/22 01/06/23 tabs gabapentin 300 mg capsule 300 mg PO TID #270 caps 12/03/22 01/06/23 diclofenac sodium 1 % topical gel 4 g topical QID #100 grams 12/07/22 01/06/23 benzonatate 100 mg capsule 100 mg PO TID PRN cough #14 caps 12/11/22 01/06/23 clonazepam 1 mg tablet 1 mg PO BID #14 tabs 12/30/22 01/06/23 clindamycin HCl 150 mg capsule 450 mg PO TID tooth infection 7 01/07/23 days #63 caps prednisone 50 mg tablet 50 mg PO DAILY 7 days #7 tabs 01/07/23 01/07/23 Previous Rx's Medication Instructions Recorded calcitriol 0.5 mcg capsule 0.5 mcg PO BID #360 caps 06/14/22 calcium carbonate 200 mg calcium 1,000 mg PO BID #0 tabs 06/14/22 (500 mg) chewable tablet (Tums) magnesium gluconate 27 mg 27 mg PO BID #60 tabs 11/08/22 magnesium (500 mg) tablet cyclobenzaprine 10 mg tablet 10 mg PO TID PRN muscle spasm #30 12/03/22 tabs gabapentin 300 mg capsule 300 mg PO TID #270 caps 12/03/22 diclofenac sodium 1 % topical gel 4 g topical QID #100 grams 12/07/22 benzonatate 100 mg capsule 100 mg PO TID PRN cough #14 caps 12/11/22 clonazepam 1 mg tablet 1 mg PO BID #14 tabs 12/30/22 clindamycin HCl 150 mg capsule 450 mg PO TID tooth infection 7 01/07/23 days #63 caps prednisone 50 mg tablet 50 mg PO DAILY 7 days #7 tabs 01/07/23 Allergies Allergy/AdvReac Type Severity Reaction Status Date / Time codeine Allergy Intermediate Verified 01/07/23 18:15 amoxicillin AdvReac Intermediate Nausea Verified 01/07/23 18:15 General Stated Complaint: GenMedical ADRIANA: 4 Review of Systems All systems reviewed & are unremarkable except as noted in HPI and below Respiratory Respiratory: Reports as per HPI Integumentary/Breasts Skin/Breast: Reports as per HPI, Reports erythema and Reports rash PFSH All Active Problems (Updated 01/07/23 @ 19:09 by Antoinette Templeton NP) Allergic reaction to penicillin (Acute) Acute tension headache (Acute) Anxiety (Chronic) Tingling in extremities (Acute) Dental infection (Acute) Costochondritis (Acute 12/13/22) [facility] ED Cough (Acute) Cough (Acute) Right ankle sprain (Acute) Cellulitis (Acute) Severe anxiety with panic (Chronic) Family history of coronary arteriosclerosis (Chronic) Father of [place] at 50, mother had [place] at 42 Elevated parathyroid hormone (Acute) Suicidal ideation (Acute) Depression (Chronic) Hypocalcemia (Chronic) Hypomagnesemia (Chronic) Depression (Chronic) Primary hyperparathyroidism (Chronic) Chronic constipation (Chronic) Multiple endocrine neoplasia type I (Chronic) Iatrogenic hypocalcemia (Acute) Abdominal pain (Acute) Common bile duct dilatation (Acute) Intrahepatic bile duct dilation (Acute) Abnormal CT scan, kidney (Acute) Sphincter of Oddi dysfunction (Chronic) Therapeutic opioid induced constipation (Acute) Pulmonary nodule 1 cm or greater in diameter (Chronic) Neck pain on left side (Acute) with shoulder, upper back pain.. torticollis, radiating into left hip/leg History of electrolyte imbalance (Acute) Complex medical condition (Chronic) Serious electrolyte imbalances, with gynecomastia, possible MEN Dx, CKD and anemia with baseline anxiety and Hx PTSD. CKD (chronic kidney disease) stage 2, GFR 60-89 ml/min (Acute) GFR 64-65, with Hx FLORESITA and GFR < 45 Gynecomastia, male (Acute) b/l, per CT (Jul 2022).. Possible 2' Methadone, Clnzpm (?). Surg eval (+)/No further action. 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 Adopted: No Caregiver/Support person: No Foster care: No Household members: none Housing: house Number of Children: 0 Communication Needs: None Education Level: high school Do you need help understanding health information?: Never 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 and animals: Yes (Ally) Pets and animals: dog(s) Sexually active: No Do you think of yourself as: straight/heterosexual Current gender identity: male What is your relationship status?: How often do you talk on the phone with friends or family?: twice per week How often do you get together with friends or relatives?: never Do you belong to any clubs or organized social groups?: no Panel score (0-1 are the most socially isolated patients): 0 What type of physical activity do you participate in: walking Duration: 15-30 minutes/day Frequency: 5-6 times per week Maryam/Temple: Scientology Special maryam needs: No Seatbelt use: always Helmet use: Yes Helmet use: always Drive 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 driver salesman: No Do you feel safe at home: Yes Do you feel safe in your relationship?: Yes Exam Narrative Exam Narrative: Constitutional: Alert and oriented x3. Appears stated age. Normal body habitus. Head: Normocephalic, no trauma. Eyes: Pupils PERRL, Red reflex noted, EOM's intact. Eyelids symmetrical without lesions, discharge, or swelling. ENT: Bilateral TM's WNL, External ear normal to inspection, no mastoid TTP, swelling, or erythema, Nasal turbinates WNL, no nasal discharge. Normal dentition, Posterior pharynx WNL, no exudate. Chest: RRR, Normal S1, S2, distal pulses intact. Resp: Lungs clear to auscultation bilaterally, no wheezes, rales, or rhonchi. Abdomen: Soft, non-distended, Normoactive bowel sounds all 4 quads. Musculoskeletal: Normal gait, 5/5 strength to all four extremities. Skin: No suspicious rashes or lesions. Capillary refill less than 2 sec. small amount of redness noted to the chest no hives no uric area noted. Neurologic: Cranial nerves II-XII intact. Alert and oriented x 3. Motor: No deficits noted. Sensory: Intact bilaterally all 4 extremities. Course Vital Signs Vital signs: Vital Signs Temperature 36.9 C 01/07/23 18:09 Pulse 114 H 01/07/23 18:09 Respiratory Rate 20 01/07/23 18:09 Blood Pressure 130/79 01/07/23 18:09 Pulse Oximetry 99 01/07/23 18:09 Temperature 36.9 C 01/07/23 18:09 Pulse 114 H 01/07/23 18:09 Respiratory Rate 20 01/07/23 18:09 Blood Pressure 130/79 01/07/23 18:09 Blood Pressure Position Supine 01/07/23 18:09 Pulse Oximetry 99 01/07/23 18:09 Oxygen Delivery Method Room Air 01/07/23 18:09 Oxygen Flow Rate 0 01/07/23 18:09
[2023-01-07] MEDS: Benzocaine 20% Gel 30 GM JAR MM (19:32)
[2023-01-07] MEDS: Dexamethasone 4 MG/ML VIAL PO (19:32)
[2023-01-07] MEDS: diphenhydrAMINE 25 MG CAP PO (19:32)
[2023-01-07] MEDS: Clindamycin 150 MG CAP, 12 CAPS/BTL 450 MG PO (19:32)
== END 2023-01-07 19:33 | disposition home or self-care (01) ==
PROVIDERS: Emergency Provider Registered Nurse Emergency; PCP Family Medicine
DX: T36.0X5A Adverse effect of penicillins, initial encounter (principal)
CPT/HCPCS: 99283; 99284; J1100

== ENCOUNTER 2023-01-10 14:18 | Outpatient (RCR) | payer MEDICAID, SELFPAY ==
--- NOTE | 2023-01-10 14:15 | HOLTER_ITS ---
APPROVED REPORT Conclusion This is a Holter monitor ordered for palpitations. Patient was monitored for 17 hours and 10 minutes Rhythm throughout was sinus. Average heart rate was 81. Minimum was 62, maximum 114 There were no dysrhythmias recorded
== END 2023-01-13 23:59 | disposition home or self-care (01) ==
LOC: CARDOPNVT 14:18
PROVIDERS: PCP Family Medicine; Visit Provider Family Medicine
DX: R00.2 Palpitations (principal)
CPT/HCPCS: 93225

== ENCOUNTER 2023-01-11 07:54 | Emergency (ER) | payer OTHER, SELFPAY ==
[2023-01-11] VITALS (16 sets, daily range): BP systolic 98–131; BP diastolic 48–76; PULSE 68–90; RESP 18–20; TEMP 36.2; O2SAT 94–100
--- NOTE | 2023-01-11 08:00 | RT.EKG_ITS ---
APPROVED REPORT Exam: Resting ECG Reason for Exam: chest pain Patient Location: E HR:79 bpm ECG Measurements Heart Rate [address] 183 P 36 QRSd 99 QRS 46 QT 399 T 22 QTc 459 Conclusion Sinus rhythm...normal P axis, V-rate 60- [address]. [address] segment or T wave abnormalities to suggest occlusive DE
--- NOTE | 2023-01-11 08:21 | ED.GENADUL_ITS ---
Discharge Plan Disposition Patient Disposition: Home Discharge Details Clinical Impression: Anxiety Primary Care Provider: Brendon Vivar ED Provider: Crow Gama Home Meds and New Rx's Prescriptions: Continued methadone 10 mg/5 mL solution 110 mg PO QAM magnesium gluconate 27 mg magnesium (500 mg) tablet 27 mg PO BID Qty: 60 3RF gabapentin 300 mg capsule 300 mg PO TID Qty: 270 3RF cyclobenzaprine 10 mg tablet 10 mg PO TID PRN (Reason: muscle spasm) Qty: 30 3RF prednisone 50 mg tablet 50 mg PO DAILY 7 Days Qty: 7 0RF calcium carbonate [Tums] 200 mg calcium (500 mg) tablet,chewable 1,000 mg PO BID Qty: 0 0RF Hold Instructions: Resume on 06/15/22. calcitriol 0.5 mcg capsule 0.5 mcg PO BID Qty: 360 3RF Hold Instructions: Resume on 06/15/22. clindamycin HCl 150 mg capsule 450 mg PO TID 7 Days Qty: 63 0RF Rx Instructions: Take 3 capsules 3 times a day for the next 7 days diclofenac sodium 1 % gel 4 g topical QID Qty: 100 0RF Rx Instructions: apply to single knee, ankle, foot; for foot includes sole/toes/top of foot benzonatate 100 mg capsule 100 mg PO TID PRN (Reason: cough) Qty: 14 0RF Rx Instructions: Take 1 capsule up to 3 times daily as needed for cough clonazepam 1 mg tablet 1 mg PO BID Qty: 14 0RF Discharge Instructions Instructions: Anxiety (ED) Additional Instructions: It is very important that you follow-up with your primary care provider for reassessment and further refills of your anxiety medication. Otherwise continue to take your normally prescribed medications and follow-up with psychiatry and primary care to. Referrals: Brendon Vivar DO [Primary Care Provider] - Discharge Data Discharge Date/Time-TO BE ENTERED AT DEPARTURE: 01/11/23 09:22 Medical Decision Making Patient presenting to the emergency department for chief complaint of chest pain. Patient reports 2 hours prior to arrival he started having some chest heaviness and aching with abnormal feeling in his arms. He keeps stating that he is having restless leg and muscle twitching. He does report that this could be is anxiety given that he ran out of his clonazepam and took last dose yesterday evening and knows that he cannot get in touch with his primary care provider until Friday. Patient does state some hoarseness to his voice and chest congestion that is mild but denies all other symptoms. Physical exam is unremarkable, clear lung sounds, normal cardiac exam, otherwise benign presentation which is similar to previous presentations where patient has been seen by myself in the emergency department. Given patient's history of significant electrolyte abnormalities we will check labs, will perform initial troponin but I have very low suspicion of ACS given patient's history of significant anxiety, will also check EKG. Pending results we will give patient his clonazepam. Please see physician interpretation for full interpretation of EKG upon my review patient is in sinus rhythm, rate of 79, no findings to suggest acute STEMI and no obvious changes from previous EKG. Reviewed patient's labs and patient has a stable anemia, BUN and creatinine both elevated but at patient's baseline, GFR is appropriate, glucose of 131 and albumin of 3.2. Troponin is nondetected. Patient actually now requesting to go home as he states that he is feeling better with no further symptoms and full resolution of chest pain. We will give patient a 1 week supply of his clonazepam otherwise patient recommended to follow-up with primary care provider for further refills of his medication. After discussion of diagnosis and plan of care patient has no further needs, questions, or concerns and states clear understanding to return to the emergency department for any worsening symptoms. This documentation was generated using [employer] dictation system, please disregard any oddities of phrase or misspellings. Lab Data Lab results reviewed: Yes I reviewed the patient's lab results. HPI General Mode of arrival: ambulatory . Date/Time Provider Initiated Documentation: 01/11/23 08:00 . Limitations to Documentation: no limitations . Information obtained by: patient and RN notes reviewed . History of Present Illness 27 year old M presents to the emergency department with the chief complaint of Chest pain, anxiety, described as moderate and similar to prior episodes, Quality is described as aching, and is localized to the chest. Patient extremity. Patient started experiencing this hour(s) (2) and it has been constant. No relieving factors improve symptom(s), Other factors that worsen symptoms (Running out of medication) . Patient notes malaise. Patient did receive the following treatments prior to arrival, none Related Data Home Medications Medication Instructions Recorded Confirmed methadone 10 mg/5 mL oral solution 110 mg PO QAM 11/16/21 01/11/23 calcitriol 0.5 mcg capsule 0.5 mcg PO BID #360 caps 06/14/22 01/11/23 calcium carbonate 200 mg calcium 1,000 mg PO BID #0 tabs 06/14/22 01/11/23 (500 mg) chewable tablet (Tums) magnesium gluconate 27 mg 27 mg PO BID #60 tabs 11/08/22 01/11/23 magnesium (500 mg) tablet cyclobenzaprine 10 mg tablet 10 mg PO TID PRN muscle spasm #30 12/03/22 01/11/23 tabs gabapentin 300 mg capsule 300 mg PO TID #270 caps 12/03/22 01/11/23 diclofenac sodium 1 % topical gel 4 g topical QID #100 grams 12/07/22 01/11/23 benzonatate 100 mg capsule 100 mg PO TID PRN cough #14 caps 12/11/22 01/11/23 clindamycin HCl 150 mg capsule 450 mg PO TID tooth infection 7 01/07/23 01/11/23 days #63 caps prednisone 50 mg tablet 50 mg PO DAILY 7 days #7 tabs 01/07/23 01/11/23 clonazepam 1 mg tablet 1 mg PO BID #14 tabs 01/11/23 Previous Rx's Medication Instructions Recorded calcitriol 0.5 mcg capsule 0.5 mcg PO BID #360 caps 06/14/22 calcium carbonate 200 mg calcium 1,000 mg PO BID #0 tabs 06/14/22 (500 mg) chewable tablet (Tums) magnesium gluconate 27 mg 27 mg PO BID #60 tabs 11/08/22 magnesium (500 mg) tablet cyclobenzaprine 10 mg tablet 10 mg PO TID PRN muscle spasm #30 12/03/22 tabs gabapentin 300 mg capsule 300 mg PO TID #270 caps 12/03/22 diclofenac sodium 1 % topical gel 4 g topical QID #100 grams 12/07/22 benzonatate 100 mg capsule 100 mg PO TID PRN cough #14 caps 12/11/22 clindamycin HCl 150 mg capsule 450 mg PO TID tooth infection 7 01/07/23 days #63 caps prednisone 50 mg tablet 50 mg PO DAILY 7 days #7 tabs 07/25/23 clonazepam 1 mg tablet 1 mg PO BID #14 tabs 01/11/23 Allergies Allergy/AdvReac Type Severity Reaction Status Date / Time codeine Allergy Intermediate Verified 01/11/23 08:05 Penicillins Allergy Skin Rash Verified 01/11/23 08:05 amoxicillin AdvReac Intermediate Nausea Verified 01/11/23 08:05 General Stated Complaint: Chest Pain ADRIANA: 3 Review of Systems Constitutional Constitutional: Denies chills, Denies fever(s), Denies headache(s) and Reports malaise ENT Ears, Nose, Mouth, and Throat: Denies headache(s), Reports hoarseness and Denies throat swelling Cardiovascular Cardiovascular: Reports as per HPI, Reports chest pain, Denies syncope, Denies irregular heart rhythm, Denies palpitations and Denies dyspnea Respiratory Respiratory: Reports chest congestion, Denies cough and Denies dyspnea Gastrointestinal Gastrointestinal: Denies abdominal pain, Denies nausea and Denies vomiting Musculoskeletal Musculoskeletal: Denies numbness, Denies tingling and Reports other (Muscle twit satinder) Integumentary/Breasts Skin/Breast: Denies rash Neurologic Neurologic: Denies syncope, Denies headache(s), Denies numbness, Reports restless legs and Denies tingling Psychiatric Psychiatric: Reports anxiety (Ran out of clonazepam last night) Endocrine Endocrine: Denies palpitations Allergic/Immunologic Allergic/Immunologic: Denies throat swelling [facility] All Active Problems (Updated 01/11/23 @ 09:15 by Crow Gama NP) Allergic reaction to penicillin (Acute) Acute tension headache (Acute) Anxiety (Chronic) Tingling in extremities (Acute) Dental infection (Acute) Costochondritis (Acute 12/13/22) [facility] ED Cough (Acute) Right ankle sprain (Acute) Cellulitis (Acute) Severe anxiety with panic (Chronic) Family history of coronary arteriosclerosis (Chronic) Father of [place] at 50, mother had [place] at 42 Elevated parathyroid hormone (Acute) Suicidal ideation (Acute) Depression (Chronic) Hypocalcemia (Chronic) Hypomagnesemia (Chronic) Depression (Chronic) Primary hyperparathyroidism (Chronic) Chronic constipation (Chronic) Multiple endocrine neoplasia type I (Chronic) Iatrogenic hypocalcemia (Acute) Abdominal pain (Acute) Common bile duct dilatation (Acute) Intrahepatic bile duct dilation (Acute) Abnormal CT scan, kidney (Acute) Sphincter of Oddi dysfunction (Chronic) Therapeutic opioid induced constipation (Acute) Pulmonary nodule 1 cm or greater in diameter (Chronic) Neck pain on left side (Acute) with shoulder, upper back pain.. torticollis, radiating into left hip/leg History of electrolyte imbalance (Acute) Complex medical condition (Chronic) Serious electrolyte imbalances, with gynecomastia, possible MEN Dx, CKD and anemia with baseline anxiety and Hx PTSD. CKD (chronic kidney disease) stage 2, GFR 60-89 ml/min (Acute) GFR 64-65, with Hx FLORESITA and GFR < 45 Gynecomastia, male (Acute) b/l, per CT (Jul 2022).. Possible 2' Methadone, Clnzpm (?). Surg eval (+)/No further action. 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 Adopted: No Caregiver/Support person: No Foster care: No Household members: none Housing: house Number of Children: 0 Communication Needs: None Education Level: high school Do you need help understanding health information?: Never 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 and animals: Yes (Ally) Pets and animals: dog(s) Sexually active: No Do you think of yourself as: straight/heterosexual Current gender identity: male What is your relationship status?: How often do you talk on the phone with friends or family?: twice per week How often do you get together with friends or relatives?: never Do you belong to any clubs or organized social groups?: no Panel score (0-1 are the most socially isolated patients): 0 What type of physical activity do you participate in: walking Duration: 15-30 minutes/day Frequency: 5-6 times per week Maryam/Sabianist: Religious Special maryam needs: No Seatbelt use: always Helmet use: Yes Helmet use: always Drive 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 Exam Const General: cooperative, healthy appearing, comfortable, no acute distress, not diaphoretic and not ill appearing Nutritional Appearance: average body habitus Orientation: alert, awake and oriented x3 Limitations: mental status not altered Neck Neck: normal visual inspection, full ROM, trachea midline, supple and no anterior neck swelling Chest Chest: normal inspection of the chest Resp Effort & Inspection: normal respiratory effort and able to speak in complete sentences Auscultation: clear to auscultation bilaterally Cardio Jugular venous pressure: no JVD Palpation: normal PMI Rate: regular rate Rhythm: regular rhythm Heart Sounds: S1 normal, S2 normal, no click, no gallops, no murmurs and no rubs Pulses: radial pulses present bilaterally 2+ Skin General skin exam: no rashes or lesions noted Neuro General: patient alert, patient awake, patient oriented x3, tone normal and moves all extremities Course Vital Signs Vital signs: Vital Signs Temperature 36.2 C L 01/11/23 08:02 Pulse 90 01/11/23 08:02 Respiratory Rate 20 01/11/23 08:02 Blood Pressure 131/76 01/11/23 08:02 Pulse Oximetry 96 01/11/23 08:02 Temperature 36.2 C L 01/11/23 08:02 Temperature Source Tympanic 01/11/23 08:02 Pulse 90 01/11/23 08:02 Respiratory Rate 18 01/11/23 08:09 Respiratory Effort Normal, Non-Labored 01/11/23 08:09 Respiratory Depth Normal 01/11/23 08:09 Respiratory Pattern Normal 01/11/23 08:07 Blood Pressure 131/76 01/11/23 08:02 Blood Pressure Position Supine 01/11/23 08:02 Pulse Oximetry 96 01/11/23 08:02 Oxygen Delivery Method Room Air 01/11/23 08:02 Oxygen Flow Rate 0 01/11/23 08:02
[2023-01-11] MEDS: clonazePAM 1 MG TAB PO (08:29)
[2023-01-11 08:45] LABS: Abs Immature Grans 0.01 10^3/uL (0.0-0.06); Absolute Basophil Count 0.04 10^3/uL (0.0-0.2); Absolute Lymphocyte Count 1.96 10^3/uL (1.2-3.4); Absolute Monocyte Count 0.61 10^3/uL (0.1-0.8); Absolute Neutrophil Count 2.94 10^3/uL (1.2-6.7); Basophils % 0.7; Eosinophils % 3.5; HCT 33.3 % (40.0-50.0); HGB 11.5 g/dL (13.5-17.5); Immature Grans % 0.2; MCH 31.3 pg (27.0-33.0); MCHC 34.5 % (32.0-36.0); MCV 91 fL (80-95); MPV 10.9 fL (8.0-11.0); Monocytes % 10.6; Platelet Count 225 10^3/uL (130-400); RBC 3.68 10^6/uL (4.36-5.78); RDW 12.6 % (11.8-14.1); RDW-SD 40.7 fL; WBC 5.76 10^3/uL (4.4-10.8)
[2023-01-11 08:57] LABS: ALT 45 U/L (16-63); AST 25 U/L (15-37); Albumin 3.2 g/dL (3.4-5.0); Alkaline Phosphatase 115 U/L (46-116); Anion Gap 7.1 mmol/L (3-11); BUN 19 mg/dL (7-18); Bilirubin, Total 0.2 mg/dL (0.2-1.0); CO2 31.9 mmol/L (21.0-32.0); CREATININE 1.4 mg/dL (0.70-1.30); Calcium 8.9 mg/dL (8.5-10.1); Chloride 101 mmol/L (98-107); Estimated GFR 69.77 (mL/min/1.73m2); Glucose 131 mg/dL (74-106); Magnesium 1.8 mg/dL (1.8-2.4); Potassium 3.5 mmol/L (3.5-5.1); Sodium 140 mmol/L (136-145); Total Protein 7.5 g/dL (6.4-8.2); Troponin I < 50 ng/L (<or=60)
== END 2023-01-11 09:22 | disposition home or self-care (01) ==
PROVIDERS: Emergency Provider Nurse Practitioner Family; PCP Family Medicine
DX: F41.9 Anxiety disorder, unspecified (principal); D64.9 Anemia, unspecified; Z20.822 Contact with and (suspected) exposure to COVID-19
CPT/HCPCS: 80053; 93005; 83735; 84484; 85025; 93010; 99284

== ENCOUNTER 2023-01-15 15:40 | Outpatient (RCR) | payer MEDICAID, SELFPAY | END 2023-02-13 23:59 | disposition home or self-care (01) | LOC: CARDOPNVT 15:40 | PROVIDERS: PCP Family Medicine; Visit Provider Family Medicine | DX: R00.2 Palpitations (principal) | CPT/HCPCS: 93226 ==

== ENCOUNTER 2023-01-17 00:05 | Emergency (ER) | payer OTHER, SELFPAY ==
[2023-01-17 00:10] VITALS: BP 139/89; PULSE 87; RESP 18; TEMP 36.7; O2SAT 99
--- NOTE | 2023-01-17 00:18 | ED.GENADUL_ITS ---
Discharge Plan Disposition Patient Disposition: Home Condition: Stable Discharge Details Clinical Impression: Medication reaction Primary Care Provider: Brendon Vivar ED Provider: Ricardo Crabtree Home Meds and New Rx's Prescriptions: Continued methadone 10 mg/5 mL solution 110 mg PO QAM magnesium gluconate 27 mg magnesium (500 mg) tablet 27 mg PO BID Qty: 60 3RF gabapentin 300 mg capsule 300 mg PO TID Qty: 270 3RF cyclobenzaprine 10 mg tablet 10 mg PO TID PRN (Reason: muscle spasm) Qty: 30 3RF calcium carbonate [Tums] 200 mg calcium (500 mg) tablet,chewable 1,000 mg PO BID Qty: 0 0RF Hold Instructions: Resume on 06/15/22. calcitriol 0.5 mcg capsule 0.5 mcg PO BID Qty: 360 3RF Hold Instructions: Resume on 06/15/22. clindamycin HCl 150 mg capsule 450 mg PO TID 7 Days Qty: 63 0RF Rx Instructions: Take 3 capsules 3 times a day for the next 7 days diclofenac sodium 1 % gel 4 g topical QID Qty: 100 0RF Rx Instructions: apply to single knee, ankle, foot; for foot includes sole/toes/top of foot benzonatate 100 mg capsule 100 mg PO TID PRN (Reason: cough) Qty: 14 0RF Rx Instructions: Take 1 capsule up to 3 times daily as needed for cough clonazepam 1 mg tablet 1 mg PO BID Qty: 14 0RF Discontinued prednisone 50 mg tablet 50 mg PO DAILY 7 Days Qty: 7 0RF Discharge Instructions Additional Instructions: I would recommend holding your prednisone until you discuss it further with your primary care provider if you feel more ill, have severe pain or difficulty breathing return to the emergency department Medical Decision Making 27 yo male with hx of MEN, who states he was diagnosed with rheumatoid arthritis recently with his pcp and took his first dose of prednisone tonight, comes in stating he feels off. He states all day he felt well and had no symptoms, took the prednisone then an hour later started to feel tired and out of it. Denies loc, headaches, chest pain, dyspnea, n/v. He denies drug use. He comes in ambulatory with normal gait, caox4 speaking clearly. He has no focal motor deficitis, CN II-XII intact, clear speech, soft abdomen. Given the symptoms started after taking prednisone suspect he is experiencing side effects from this. Given reassuring exam and stable vitals do not feel further testing or lab work is indicated, he is going to discuss medication changes with his pcp and hold his prednisone, return precautions given Differential Diagnosis Differential Diagnosis: medication reaction, anxiety HPI General Mode of arrival: ambulatory . Date/Time Provider Initiated Documentation: 01/17/23 00:07 . Limitations to Documentation: no limitations . Information obtained by: patient . History of Present Illness 27 year old M presents to the emergency department with the chief complaint of feels out of it, described as moderate, Patient started experiencing this minute(s) (30) and it has been constant. No relieving factors improve symptom(s), No exacerbating factors reported . Patient did receive the following treatments prior to arrival, none Related Data Home Medications Medication Instructions Recorded Confirmed methadone 10 mg/5 mL oral solution 110 mg PO QAM 11/16/21 01/11/23 calcitriol 0.5 mcg capsule 0.5 mcg PO BID #360 caps 06/14/22 01/11/23 calcium carbonate 200 mg calcium 1,000 mg PO BID #0 tabs 06/14/22 01/11/23 (500 mg) chewable tablet (Tums) magnesium gluconate 27 mg 27 mg PO BID #60 tabs 11/08/22 01/11/23 magnesium (500 mg) tablet cyclobenzaprine 10 mg tablet 10 mg PO TID PRN muscle spasm #30 12/03/22 01/11/23 tabs gabapentin 300 mg capsule 300 mg PO TID #270 caps 12/03/22 01/11/23 diclofenac sodium 1 % topical gel 4 g topical QID #100 grams 12/07/22 01/11/23 benzonatate 100 mg capsule 100 mg PO TID PRN cough #14 caps 12/11/22 01/11/23 clindamycin HCl 150 mg capsule 450 mg PO TID tooth infection 7 01/07/23 01/11/23 days #63 caps clonazepam 1 mg tablet 1 mg PO BID #14 tabs 01/11/23 Previous Rx's Medication Instructions Recorded calcitriol 0.5 mcg capsule 0.5 mcg PO BID #360 caps 06/14/22 calcium carbonate 200 mg calcium 1,000 mg PO BID #0 tabs 06/14/22 (500 mg) chewable tablet (Tums) magnesium gluconate 27 mg 27 mg PO BID #60 tabs 11/08/22 magnesium (500 mg) tablet cyclobenzaprine 10 mg tablet 10 mg PO TID PRN muscle spasm #30 12/03/22 tabs gabapentin 300 mg capsule 300 mg PO TID #270 caps 12/03/22 diclofenac sodium 1 % topical gel 4 g topical QID #100 grams 12/07/22 benzonatate 100 mg capsule 100 mg PO TID PRN cough #14 caps 12/11/22 clindamycin HCl 150 mg capsule 450 mg PO TID tooth infection 7 01/07/23 days #63 caps clonazepam 1 mg tablet 1 mg PO BID #14 tabs 01/11/23 Allergies Allergy/AdvReac Type Severity Reaction Status Date / Time codeine Allergy Intermediate Verified 01/11/23 08:05 Penicillins Allergy Skin Rash Verified 01/11/23 08:05 amoxicillin AdvReac Intermediate Nausea Verified 01/11/23 08:05 General Stated Complaint: GenMedical ADRIANA: 5 Review of Systems All systems reviewed & are unremarkable except as noted in HPI and below Constitutional Constitutional: Denies chills and Denies fever(s) Cardiovascular Cardiovascular: Denies chest pain and Denies dyspnea Respiratory Respiratory: Denies cough and Denies dyspnea Gastrointestinal Gastrointestinal: Denies abdominal pain, Denies nausea and Denies vomiting Integumentary/Breasts Skin/Breast: Denies rash [facility] All Active Problems (Updated 01/17/23 @ 00:24 by Ricardo Crabtree MD) Allergic reaction to penicillin (Acute) Medication reaction (Acute) Acute tension headache (Acute) Anxiety (Chronic) Tingling in extremities (Acute) Dental infection (Acute) Costochondritis (Acute 12/13/22) [facility] ED Right ankle sprain (Acute) Cellulitis (Acute) Severe anxiety with panic (Chronic) Family history of coronary arteriosclerosis (Chronic) Father of [place] at 50, mother had [place] at 42 Elevated parathyroid hormone (Acute) Suicidal ideation (Acute) Depression (Chronic) Hypocalcemia (Chronic) Hypomagnesemia (Chronic) Depression (Chronic) Primary hyperparathyroidism (Chronic) Chronic constipation (Chronic) Multiple endocrine neoplasia type I (Chronic) Iatrogenic hypocalcemia (Acute) Abdominal pain (Acute) Common bile duct dilatation (Acute) Intrahepatic bile duct dilation (Acute) Abnormal CT scan, kidney (Acute) Sphincter of Oddi dysfunction (Chronic) Therapeutic opioid induced constipation (Acute) Pulmonary nodule 1 cm or greater in diameter (Chronic) Neck pain on left side (Acute) with shoulder, upper back pain.. torticollis, radiating into left hip/leg History of electrolyte imbalance (Acute) Complex medical condition (Chronic) Serious electrolyte imbalances, with gynecomastia, possible MEN Dx, CKD and anemia with baseline anxiety and Hx PTSD. CKD (chronic kidney disease) stage 2, GFR 60-89 ml/min (Acute) GFR 64-65, with Hx FLORESITA and GFR < 45 Gynecomastia, male (Acute) b/l, per CT (Jul 2022).. Possible 2' Methadone, Clnzpm (?). Surg eval (+)/No further action. 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 Adopted: No Caregiver/Support person: No Foster care: No Household members: none Housing: house Number of Children: 0 Communication Needs: None Education Level: high school Do you need help understanding health information?: Never 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 and animals: Yes (Ally) Pets and animals: dog(s) Sexually active: No Do you think of yourself as: straight/heterosexual Current gender identity: male What is your relationship status?: How often do you talk on the phone with friends or family?: twice per week How often do you get together with friends or relatives?: never Do you belong to any clubs or organized social groups?: no Panel score (0-1 are the most socially isolated patients): 0 What type of physical activity do you participate in: walking Duration: 15-30 minutes/day Frequency: 5-6 times per week Maryam/Buddhism: Sikh Special maryam needs: No Seatbelt use: always Helmet use: Yes Helmet use: always Drive 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 regional 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 Exam Const General: no acute distress Orientation: alert HENMT Head: normal to inspection Ears: external ears normal General nose exam: external nose normal Mouth: moist mucous membranes Eyes General: appearance normal, both eyes and all related structures Neck Neck: normal visual inspection Resp Effort & Inspection: normal respiratory effort and able to speak in complete sentences Auscultation: clear to auscultation bilaterally Cardio Jugular venous pressure: no JVD Rate: regular rate Heart Sounds: no murmurs GI Palpation: soft and nontender Skin General skin exam: no rashes or lesions noted Neuro General: patient alert and patient oriented x3 Extrem General: normal to inspection Psych Mental Status: mental status grossly normal Course Vital Signs Vital signs: Vital Signs Temperature 36.7 C 01/17/23 00:10 Pulse 87 01/17/23 00:10 Respiratory Rate 18 01/17/23 00:10 Blood Pressure 139/89 01/17/23 00:10 Pulse Oximetry 99 01/17/23 00:10 Temperature 36.7 C 01/17/23 00:10 Temperature Source Oral 01/17/23 00:10 Pulse 87 01/17/23 00:10 Respiratory Rate 18 01/17/23 00:10 Respiratory Effort Normal 01/17/23 00:16 Blood Pressure 139/89 01/17/23 00:10 Pulse Oximetry 99 01/17/23 00:10 Oxygen Delivery Method Room Air 01/17/23 00:10 Oxygen Flow Rate 0 01/17/23 00:10
== END 2023-01-17 00:28 | disposition home or self-care (01) ==
PROVIDERS: Emergency Provider Emergency Medicine; PCP Family Medicine
DX: R40.0 Somnolence (principal); T38.0X5A Adverse effect of glucocorticoids and synthetic analogues, initial encounter; M06.9 Rheumatoid arthritis, unspecified; F41.9 Anxiety disorder, unspecified; Z79.899 Other long term (current) drug therapy
CPT/HCPCS: 99282; 99284

== ENCOUNTER 2023-01-19 21:58 | Emergency (ER) | payer OTHER, SELFPAY ==
[2023-01-19 22:08] VITALS: BP 136/82; PULSE 99; RESP 16; TEMP 37.2; O2SAT 96
--- NOTE | 2023-01-19 22:10 | ED.GENADUL_ITS ---
Discharge Plan Disposition Patient Disposition: Home Condition: Good Discharge Details Clinical Impression: Constipation Primary Care Provider: Brendon Vivar ED Provider: Steph Jones Home Meds and New Rx's Prescriptions: Continued methadone 10 mg/5 mL solution 110 mg PO QAM magnesium gluconate 27 mg magnesium (500 mg) tablet 27 mg PO BID Qty: 60 3RF gabapentin 300 mg capsule 300 mg PO TID Qty: 270 3RF cyclobenzaprine 10 mg tablet 10 mg PO TID PRN (Reason: muscle spasm) Qty: 30 3RF calcium carbonate [Tums] 200 mg calcium (500 mg) tablet,chewable 1,000 mg PO BID Qty: 0 0RF Hold Instructions: Resume on 06/15/22. calcitriol 0.5 mcg capsule 0.5 mcg PO BID Qty: 360 3RF Hold Instructions: Resume on 06/15/22. clindamycin HCl 150 mg capsule 450 mg PO TID 7 Days Qty: 63 0RF Patient Comments: no longer taking Rx Instructions: Take 3 capsules 3 times a day for the next 7 days diclofenac sodium 1 % gel 4 g topical QID Qty: 100 0RF Rx Instructions: apply to single knee, ankle, foot; for foot includes sole/toes/top of foot benzonatate 100 mg capsule 100 mg PO TID PRN (Reason: cough) Qty: 14 0RF Patient Comments: no longer taking Rx Instructions: Take 1 capsule up to 3 times daily as needed for cough clonazepam 1 mg tablet 1 mg PO BID Qty: 14 0RF Discharge Instructions Instructions: Constipation (ED) Additional Instructions: You were given a dose of magnesium citrate here today. I am hoping that this will help you have a bowel movement. Please continue to encourage hydration. You may continue to use Mylanta as was previously advised to help with bowel movement. If you develop fever/chills, increased pain. This dehydrated, vomiting or diarrhea/worsening symptom please seek care urgently once again. Please follow-up with primary care this week for reevaluation. Referrals: Brendon Vivar DO [Primary Care Provider] - Medical Decision Making Patient is a pleasant 27-year-old male well-known to myself in department, presenting today with chief complaint of constipation. He reports that he has not had a bowel movement in about 3 weeks. He associates this with his methadone. He reports that he is not atypical for him to go a long periods of time without having a bowel movement. Typically he uses MiraLAX with good relief. Reports that he check that today and has not yet had a bowel movement. Instead, he began having some abdominal cramping particularly on the right side and feels like there is hands squeezing his bowels moving forward. He has not yet had a bowel movement. Has not had a past significant flatus. No bleeding from rectum. No change in his urinary habits. He does report that chronically he has had as a slower urinary flow than typical but no acute change. Denies any pain in his back. No nausea or vomiting On exam, patient appears nontoxic. He does appear anxious. Abdomen is benign with no focal areas of tenderness. He does indicate the right upper quadrant as area of maximal pain but not seem to be elicited with palpation at this time. Abdomen is otherwise soft. No CVA tenderness. Normal cardiac and respiratory exam. No peritoneal findings. Will obtain baseline labs. Patient I discussed treatment options and he would prefer to try oral regimens rather than rectal. We will give magnesium citrate and reevaluate Labs are reassuring. Patient is anemic but this is stable and unchanged from his baseline. Reevaluated the patient and he reports feeling improved although he has not yet produced a bowel movement. No Abdominal Pain, He Feels Safe for Discharge and Is Requesting Released to Home. I Encouraged Continued Hydration. Tylenol and Ibuprofen As Needed for Discomfort. We Will Continue with MiraLAX As Needed and advised Previously. Return Precautions Were Discussed. Encourage Follow-Up with Primary Care. All Questions and Concerns Were Addressed and He Is Agreement This Plan. [facility] General Date/Time Provider Initiated Documentation: 01/19/23 22:10 . Limitations to Documentation: no limitations . Information obtained by: patient, RN notes reviewed and old records reviewed . History of Present Illness 27 year old M presents to the emergency department with the chief complaint of constipation, described as moderate and similar to prior episodes, Quality is described as aching, and is localized to the abdomen. Patient reports no radiation. Patient started experiencing this week(s) (3) and it has been constant. No relieving factors improve symptom(s), Medication worsens symptoms (associates with methadone) . Patient notes no other symptoms.. Patient did receive the following treatments prior to arrival, other (one dose of myralax) Related Data Home Medications Medication Instructions Recorded Confirmed methadone 10 mg/5 mL oral solution 110 mg PO QAM 11/16/21 01/19/23 calcitriol 0.5 mcg capsule 0.5 mcg PO BID #360 caps 06/14/22 01/19/23 calcium carbonate 200 mg calcium 1,000 mg PO BID #0 tabs 06/14/22 01/19/23 (500 mg) chewable tablet (Tums) magnesium gluconate 27 mg 27 mg PO BID #60 tabs 11/08/22 01/19/23 magnesium (500 mg) tablet cyclobenzaprine 10 mg tablet 10 mg PO TID PRN muscle spasm #30 12/03/22 01/19/23 tabs gabapentin 300 mg capsule 300 mg PO TID #270 caps 12/03/22 01/19/23 diclofenac sodium 1 % topical gel 4 g topical QID #100 grams 12/07/22 01/19/23 benzonatate 100 mg capsule 100 mg PO TID PRN cough #14 caps 12/11/22 01/11/23 clindamycin HCl 150 mg capsule 450 mg PO TID tooth infection 7 01/07/23 01/11/23 days #63 caps clonazepam 1 mg tablet 1 mg PO BID #14 tabs 01/11/23 01/19/23 Previous Rx's Medication Instructions Recorded calcitriol 0.5 mcg capsule 0.5 mcg PO BID #360 caps 06/14/22 calcium carbonate 200 mg calcium 1,000 mg PO BID #0 tabs 06/14/22 (500 mg) chewable tablet (Tums) magnesium gluconate 27 mg 27 mg PO BID #60 tabs 11/08/22 magnesium (500 mg) tablet cyclobenzaprine 10 mg tablet 10 mg PO TID PRN muscle spasm #30 12/03/22 tabs gabapentin 300 mg capsule 300 mg PO TID #270 caps 12/03/22 diclofenac sodium 1 % topical gel 4 g topical QID #100 grams 12/07/22 benzonatate 100 mg capsule 100 mg PO TID PRN cough #14 caps 12/11/22 clindamycin HCl 150 mg capsule 450 mg PO TID tooth infection 7 01/07/23 days #63 caps clonazepam 1 mg tablet 1 mg PO BID #14 tabs 01/11/23 Allergies Allergy/AdvReac Type Severity Reaction Status Date / Time codeine Allergy Intermediate Verified 01/19/23 22:17 Penicillins Allergy Skin Rash Verified 01/19/23 22:17 amoxicillin AdvReac Intermediate Nausea Verified 01/19/23 22:17 General ADRIANA: 5 Review of Systems Constitutional Constitutional: Reports as per HPI, Denies chills and Denies fever(s) Cardiovascular Cardiovascular: Reports as per HPI, Denies chest pain and Denies dyspnea Respiratory Respiratory: Reports as per HPI, Denies cough and Denies dyspnea Gastrointestinal Gastrointestinal: Reports as per HPI Musculoskeletal Musculoskeletal: Reports as per HPI and Denies back pain Integumentary/Breasts Skin/Breast: Reports as per HPI and Denies rash Neurologic Neurologic: Reports as per HPI PFSH All Active Problems (Updated 01/19/23 @ 23:57 by ANDREW Magaña) Allergic reaction to penicillin (Acute) Medication reaction (Acute) Constipation (Acute) Acute tension headache (Acute) Anxiety (Chronic) Tingling in extremities (Acute) Dental infection (Acute) Costochondritis (Acute 12/13/22) [facility] ED Cellulitis (Acute) Severe anxiety with panic (Chronic) Family history of coronary arteriosclerosis (Chronic) Father of [place] at 50, mother had [place] at 42 Elevated parathyroid hormone (Acute) Suicidal ideation (Acute) Depression (Chronic) Hypocalcemia (Chronic) Hypomagnesemia (Chronic) Depression (Chronic) Primary hyperparathyroidism (Chronic) Chronic constipation (Chronic) Multiple endocrine neoplasia type I (Chronic) Iatrogenic hypocalcemia (Acute) Abdominal pain (Acute) Common bile duct dilatation (Acute) Intrahepatic bile duct dilation (Acute) Abnormal CT scan, kidney (Acute) Sphincter of Oddi dysfunction (Chronic) Therapeutic opioid induced constipation (Acute) Pulmonary nodule 1 cm or greater in diameter (Chronic) Neck pain on left side (Acute) with shoulder, upper back pain.. torticollis, radiating into left hip/leg History of electrolyte imbalance (Acute) Complex medical condition (Chronic) Serious electrolyte imbalances, with gynecomastia, possible MEN Dx, CKD and anemia with baseline anxiety and Hx PTSD. CKD (chronic kidney disease) stage 2, GFR 60-89 ml/min (Acute) GFR 64-65, with Hx FLORESITA and GFR < 45 Gynecomastia, male (Acute) b/l, per CT (Jul 2022).. Possible 2' Methadone, Clnzpm (?). Surg eval (+)/No further action. 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 Adopted: No Caregiver/Support person: No Foster care: No Household members: none Housing: house Number of Children: 0 Communication Needs: None Education Level: high school Do you need help understanding health information?: Never 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 and animals: Yes (Ally) Pets and animals: dog(s) Sexually active: No Do you think of yourself as: straight/heterosexual Current gender identity: male What is your relationship status?: How often do you talk on the phone with friends or family?: twice per week How often do you get together with friends or relatives?: never Do you belong to any clubs or organized social groups?: no Panel score (0-1 are the most socially isolated patients): 0 What type of physical activity do you participate in: walking Duration: 15-30 minutes/day Frequency: 5-6 times per week Maryam/Quaker: Protestant Special maryam needs: No Seatbelt use: always Helmet use: Yes Helmet use: always Drive 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 shuttle bus 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 Exam Const General: cooperative, healthy appearing, comfortable, no acute distress, well developed and anxious Nutritional Appearance: average body habitus and well nourished Orientation: alert and awake HENMT Head: normal to inspection Mouth: moist mucous membranes Resp Effort & Inspection: normal respiratory effort, able to speak in complete sentences and no respiratory distress Auscultation: clear to auscultation bilaterally, no rales, no rhonchi and no wheezes Cardio Rate: regular rate Rhythm: regular rhythm Heart Sounds: S1 normal and S2 normal GI Inspection: normal to inspection Palpation: soft, no hepatosplenomegaly, not firm, no guarding, no masses, not rigid and nontender (indicates RUQ but no pain at this time) Percussion: normal to percussion Auscultation: hypoactive bowel sounds Back/Spine/Pelvis Back: no CVA tenderness Skin General skin exam: no rashes or lesions noted Trauma: no lacerations or abrasions Neuro General: patient alert and patient awake Cognition: normal cognition Speech: speech normal Gait: normal gait
[2023-01-19] MEDS: Lactated Ringers 1,000 ML 1000 ML IV (22:41)
[2023-01-19] MEDS: Magnesium Citrate 300 ML BTL PO (22:41)
[2023-01-19 23:09] LABS: Abs Immature Grans 0.03 10^3/uL (0.0-0.06); Absolute Basophil Count 0.06 10^3/uL (0.0-0.2); Absolute Eosinophil Count 0.24 10^3/uL (0.0-0.7); Absolute Lymphocyte Count 2.94 10^3/uL (1.2-3.4); Absolute Monocyte Count 1.11 10^3/uL (0.1-0.8); Absolute Neutrophil Count 4.59 10^3/uL (1.2-6.7); Basophils % 0.7; Eosinophils % 2.7; HCT 32.2 % (40.0-50.0); HGB 11.1 g/dL (13.5-17.5); Immature Grans % 0.3; Lymphocytes % 32.8; MCH 31.7 pg (27.0-33.0); MCHC 34.5 % (32.0-36.0); MCV 92 fL (80-95); MPV 11.9 fL (8.0-11.0); Monocytes % 12.4; Neutrophils % 51.1; Platelet Count 289 10^3/uL (130-400); RDW 12.5 % (11.8-14.1); RDW-SD 41.3 fL; WBC 8.97 10^3/uL (4.4-10.8)
[2023-01-19 23:24] LABS: ALT 48 U/L (16-63); AST 39 U/L (15-37); Albumin 3.4 g/dL (3.4-5.0); Alkaline Phosphatase 138 U/L (46-116); Anion Gap 6.7 mmol/L (3-11); BUN 10 mg/dL (7-18); Bilirubin, Total 0.2 mg/dL (0.2-1.0); CO2 32.3 mmol/L (21.0-32.0); CREATININE 1.3 mg/dL (0.70-1.30); Calcium 8.6 mg/dL (8.5-10.1); Chloride 99 mmol/L (98-107); Estimated GFR 76.26 (mL/min/1.73m2); Glucose 97 mg/dL (74-106); Lipase 23 U/L (16-77); Magnesium 1.9 mg/dL (1.8-2.4); Potassium 3.9 mmol/L (3.5-5.1); Sodium 138 mmol/L (136-145); Total Protein 8.1 g/dL (6.4-8.2)
[2023-01-19 23:57] VITALS: BP 122/71; PULSE 82; RESP 14; O2SAT 99
== END 2023-01-20 00:01 | disposition home or self-care (01) ==
PROVIDERS: Emergency Provider Physician Assistant; PCP Family Medicine
DX: K59.00 Constipation, unspecified (principal)
CPT/HCPCS: 36415; 80053; 83690; 96360; 99284; 83735; 85025

== ENCOUNTER 2023-01-20 14:18 | Outpatient (CLI) | payer MEDICAID, SELFPAY ==
[2023-01-20 15:44] LABS: Calculated LDL 83 mg/dL (<100); Cholesterol 185 mg/dL (<200); HDL Cholesterol 46 mg/dL (40-60); Triglyceride 280 mg/dL (<150)
[2023-01-20 16:05] LABS: C-Reactive Protein 0.75 mg/dL (0.0-0.3)
[2023-01-20 21:53] LABS: Rheumatoid Factor <8.6 IU/mL (<12.0)
[2023-01-21 09:28] LABS: Cyclic Citrullinated Peptide <2.5 U/mL (<5.0)
[2023-01-21 10:31] LABS: Lyme Ab w Rflx to Lyme Confirm Negative (Negative)
[2023-01-23 07:55] LABS: Anaplasma phagocytophilum Negative (Negative); B. miyamotoi PCR Negative (Negative); Babesia divergens/MO-1 Negative (Negative); Babesia duncani Negative (Negative); Babesia microti Negative (Negative); Ehrlichia chaffeensis Negative (Negative); Ehrlichia ewingii/canis Negative (Negative); Ehrlichia muris eauclairensis Negative (Negative)
== END 2023-01-20 14:19 | disposition home or self-care (01) ==
LOC: LBO 14:27
PROVIDERS: PCP Family Medicine; Visit Provider Family Medicine
DX: M06.89 Other specified rheumatoid arthritis, multiple sites (principal); F41.8 Other specified anxiety disorders; Z82.49 Family history of ischemic heart disease and other diseases of the circulatory system; E78.1 Pure hyperglyceridemia; R79.82 Elevated C-reactive protein (CRP)
CPT/HCPCS: 36415; 80061; 86200; 87798; 86140; 86431; 86618

== ENCOUNTER 2023-01-22 13:35 | Emergency (ER) | payer OTHER, SELFPAY ==
--- NOTE | 2023-01-22 13:30 | RT.EKG_ITS ---
APPROVED REPORT Exam: Resting ECG Reason for Exam: chest pain Patient Location: E HR:118 bpm ECG Measurements Heart Rate 118 AXIS MT 169 P 56 QRSd 93 QRS 69 QT 325 T 18 QTc 456 Conclusion Sinus tachycardia...rate> 99 No change vs 01/05
[2023-01-22 13:39] VITALS: BP 106/63; PULSE 132; RESP 22; TEMP 36.6; O2SAT 94
[2023-01-22 13:50] VITALS: PULSE 114
[2023-01-22 14:10] VITALS: PULSE 93
[2023-01-22 14:13] VITALS: BP 107/69; PULSE 96; RESP 16; O2SAT 94
--- NOTE | 2023-01-22 14:15 | DI.RAD_ITS ---
Exam(s) XR CHEST 2V PA LATERAL EXAM: XR CHEST 2V PA LATERAL CLINICAL HISTORY: CP TECHNIQUE: 2D digital imaging was performed. COMPARISON: CR XR PORTABLE CHEST AP from 11/05/2022 FINDINGS: HEART: Normal size. Aorta: Not dilated. PULMONARY VASCULATURE: Normal. LUNGS: Clear. PLEURAL SPACE: No pleural effusion or pneumothorax. BONE:Unremarkable for age. IMPRESSION: No acute abnormality. DATA REPOSITORY: RADIATION DOSE DELIVERED:
[2023-01-22 14:24] LABS: Abs Immature Grans 0.02 10^3/uL (0.0-0.06); Absolute Basophil Count 0.04 10^3/uL (0.0-0.2); Absolute Eosinophil Count 0.22 10^3/uL (0.0-0.7); Absolute Lymphocyte Count 2.08 10^3/uL (1.2-3.4); Absolute Monocyte Count 0.87 10^3/uL (0.1-0.8); Absolute Neutrophil Count 4.62 10^3/uL (1.2-6.7); Basophils % 0.5; Eosinophils % 2.8; HCT 35.9 % (40.0-50.0); HGB 12.1 g/dL (13.5-17.5); Immature Grans % 0.3; Lymphocytes % 26.5; MCH 30.8 pg (27.0-33.0); MCHC 33.7 % (32.0-36.0); MCV 91 fL (80-95); MPV 11.4 fL (8.0-11.0); Monocytes % 11.1; Neutrophils % 58.8; Platelet Count 283 10^3/uL (130-400); RBC 3.93 10^6/uL (4.36-5.78); RDW 12.7 % (11.8-14.1); RDW-SD 41.5 fL; WBC 7.85 10^3/uL (4.4-10.8)
[2023-01-22] MEDS: LORazepam 2 MG/ML VIAL 1 MG IVP (14:24)
--- NOTE | 2023-01-22 14:56 | ED.GENADUL_ITS ---
Discharge Plan Discharge Details Chief Complaint: Chest Pain Primary Care Provider: Brendon Vivar ED Provider: Terri Andrade Home Meds and New Rx's Prescriptions: No Action prednisone 20 mg tablet 20 mg PO DAILY 5 Days Qty: 5 0RF clonazepam 1 mg tablet 1 mg PO BID Qty: 56 0RF methadone 10 mg/5 mL solution 110 mg PO QAM magnesium gluconate 27 mg magnesium (500 mg) tablet 27 mg PO BID Qty: 60 3RF gabapentin 300 mg capsule 300 mg PO TID Qty: 270 3RF cyclobenzaprine 10 mg tablet 10 mg PO TID PRN (Reason: muscle spasm) Qty: 30 3RF calcium carbonate [Tums] 200 mg calcium (500 mg) tablet,chewable 1,000 mg PO BID Qty: 0 0RF Hold Instructions: Resume on 06/15/22. calcitriol 0.5 mcg capsule 0.5 mcg PO BID Qty: 360 3RF Hold Instructions: Resume on 06/15/22. diclofenac sodium 1 % gel 4 g topical QID Qty: 100 0RF Rx Instructions: apply to single knee, ankle, foot; for foot includes sole/toes/top of foot benzonatate 100 mg capsule 100 mg PO TID PRN (Reason: cough) Qty: 14 0RF Patient Comments: no longer taking Rx Instructions: Take 1 capsule up to 3 times daily as needed for cough Medical Decision Making Imaging Data Radiologic Study: Imaging: X-Ray Radiologist's impression: Exam(s) XR CHEST 2V PA ? LATERAL EXAM:? XR CHEST 2V PA ? LATERAL CLINICAL HISTORY:? CP TECHNIQUE:? 2D digital imaging was performed. COMPARISON:? CR XR PORTABLE CHEST AP from 11/05/2022 FINDINGS: HEART: Normal size.? Aorta: Not dilated. PULMONARY VASCULATURE: Normal. LUNGS: Clear. ? PLEURAL SPACE: No pleural effusion or pneumothorax. BONE:Unremarkable for age.? IMPRESSION: No acute abnormality.? HPI General Date/Time Provider Initiated Documentation: 01/22/23 13:50 . HPI Narrative: This 27-year-old male patient is well-known to the ED for multiple ER visits. He presents today for substernal chest pain. First he says it feels like a numbness and he says it feels like frostbite later he says it feels like stinging. Related Data Home Medications Medication Instructions Recorded Confirmed methadone 10 mg/5 mL oral solution 110 mg PO QAM 11/16/21 01/20/23 calcitriol 0.5 mcg capsule 0.5 mcg PO BID #360 caps 06/14/22 01/20/23 calcium carbonate 200 mg calcium 1,000 mg PO BID #0 tabs 06/14/22 01/20/23 (500 mg) chewable tablet (Tums) magnesium gluconate 27 mg 27 mg PO BID #60 tabs 11/08/22 01/20/23 magnesium (500 mg) tablet cyclobenzaprine 10 mg tablet 10 mg PO TID PRN muscle spasm #30 12/03/22 01/20/23 tabs gabapentin 300 mg capsule 300 mg PO TID #270 caps 12/03/22 01/20/23 diclofenac sodium 1 % topical gel 4 g topical QID #100 grams 12/07/22 01/20/23 benzonatate 100 mg capsule 100 mg PO TID PRN cough #14 caps 12/11/22 01/20/23 clonazepam 1 mg tablet 1 mg PO BID #56 tabs 01/20/23 01/20/23 prednisone 20 mg tablet 20 mg PO DAILY 5 days #5 tabs 01/20/23 01/20/23 Previous Rx's Medication Instructions Recorded calcitriol 0.5 mcg capsule 0.5 mcg PO BID #360 caps 06/14/22 calcium carbonate 200 mg calcium 1,000 mg PO BID #0 tabs 06/14/22 (500 mg) chewable tablet (Tums) magnesium gluconate 27 mg 27 mg PO BID #60 tabs 11/08/22 magnesium (500 mg) tablet cyclobenzaprine 10 mg tablet 10 mg PO TID PRN muscle spasm #30 12/03/22 tabs gabapentin 300 mg capsule 300 mg PO TID #270 caps 12/03/22 diclofenac sodium 1 % topical gel 4 g topical QID #100 grams 12/07/22 benzonatate 100 mg capsule 100 mg PO TID PRN cough #14 caps 12/11/22 clonazepam 1 mg tablet 1 mg PO BID #56 tabs 01/20/23 prednisone 20 mg tablet 20 mg PO DAILY 5 days #5 tabs 01/20/23 Allergies Allergy/AdvReac Type Severity Reaction Status Date / Time codeine Allergy Intermediate Verified 01/20/23 13:13 Penicillins Allergy Skin Rash Verified 01/20/23 13:13 amoxicillin AdvReac Intermediate Nausea Verified 01/20/23 13:13 General Stated Complaint: Chest Pain ADRIANA: 2 PFSH All Active Problems (Updated 01/20/23 @ 13:52 by Brendon Vivar DO) Inflammatory arthritis (Acute) Allergic reaction to penicillin (Acute) Medication reaction (Acute) Constipation (Acute) Acute tension headache (Acute) Anxiety (Chronic) Tingling in extremities (Acute) Dental infection (Acute) Costochondritis (Acute 12/13/22) [facility] ED Cellulitis (Acute) Severe anxiety with panic (Chronic) Family history of coronary arteriosclerosis (Chronic) Father of [place] at 50, mother had [place] at 42 Elevated parathyroid hormone (Acute) Suicidal ideation (Acute) Depression (Chronic) Hypocalcemia (Chronic) Hypomagnesemia (Chronic) Depression (Chronic) Primary hyperparathyroidism (Chronic) Chronic constipation (Chronic) Multiple endocrine neoplasia type I (Chronic) Iatrogenic hypocalcemia (Acute) Abdominal pain (Acute) Common bile duct dilatation (Acute) Intrahepatic bile duct dilation (Acute) Abnormal CT scan, kidney (Acute) Sphincter of Oddi dysfunction (Chronic) Therapeutic opioid induced constipation (Acute) Pulmonary nodule 1 cm or greater in diameter (Chronic) Neck pain on left side (Acute) with shoulder, upper back pain.. torticollis, radiating into left hip/leg History of electrolyte imbalance (Acute) Complex medical condition (Chronic) Serious electrolyte imbalances, with gynecomastia, possible MEN Dx, CKD and anemia with baseline anxiety and Hx PTSD. CKD (chronic kidney disease) stage 2, GFR 60-89 ml/min (Acute) GFR 64-65, with Hx FLORESITA and GFR < 45 Gynecomastia, male (Acute) b/l, per CT (Jul 2022).. Possible 2' Methadone, Clnzpm (?). Surg eval (+)/No further action. 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 Adopted: No Caregiver/Support person: No Foster care: No Household members: none Housing: house Number of Children: 0 Communication Needs: None Education Level: high school Do you need help understanding health information?: Never 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 and animals: Yes (Ally) Pets and animals: dog(s) Sexually active: No Do you think of yourself as: straight/heterosexual Current gender identity: male What is your relationship status?: How often do you talk on the phone with friends or family?: twice per week How often do you get together with friends or relatives?: never Do you belong to any clubs or organized social groups?: no Panel score (0-1 are the most socially isolated patients): 0 What type of physical activity do you participate in: walking Duration: 15-30 minutes/day Frequency: 5-6 times per week Maryam/Christianity: Gnosticist Special maryam needs: No Seatbelt use: always Helmet use: Yes Helmet use: always Drive 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 [place] 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 Course Vital Signs Vital signs: Vital Signs Temperature 36.6 C 01/22/23 13:39 Pulse 132 H 01/22/23 13:39 Respiratory Rate 22 01/22/23 13:39 Blood Pressure 106/63 01/22/23 13:39 Pulse Oximetry 94 01/22/23 13:39 Temperature 36.6 C 01/22/23 13:39 Temperature Source Oral 01/22/23 13:39 Pulse 96 H 01/22/23 14:13 Pulse 93 H 01/22/23 14:10 Respiratory Rate 16 01/22/23 14:13 Respiratory Effort Normal, Non-Labored, Short of Breath 01/22/23 13:50 Respiratory Depth Normal 01/22/23 13:50 Respiratory Pattern Normal 01/22/23 13:50 Blood Pressure 107/69 01/22/23 14:13 Blood Pressure Position Sitting 01/22/23 13:39 Pulse Oximetry 94 01/22/23 14:13 Oxygen Delivery Method Room Air 01/22/23 14:13 Oxygen Flow Rate 0 01/22/23 14:13 Pain Level 7 01/22/23 13:39 Lab/Test Results Lab/Test Results: Laboratory Tests Range/Units 01/22/23 01/22/23 01/22/23 13:49 13:49 13:49 WBC (4.4-10.8) 10^3/uL 7.85 RBC (4.36-5.78) 10^6/uL 3.93 L Hgb (13.5-17.5) g/dL 12.1 L Hct (40.0-50.0) % 35.9 L MCV (80-95) fL 91 MCH (27.0-33.0) pg 30.8 MCHC (32.0-36.0) % 33.7 RDW (11.8-14.1) % 12.7 Plt Count (130-400) 10^3/uL 283 MPV (8.0-11.0) fL 11.4 H Immature Gran % 0.3 Neutrophils % 58.8 Lymphocytes % 26.5 Monocytes % 11.1 Eosinophils % 2.8 Basophils % 0.5 Nucleated RBC % (0.0-0.3) % 0.0 Absolute Neutrophils (1.2-6.7) 10^3/uL 4.62 Absolute Lymphocytes (1.2-3.4) 10^3/uL 2.08 Absolute Monocytes (0.1-0.8) 10^3/uL 0.87 H Absolute Eosinophils (0.0-0.7) 10^3/uL 0.22 Absolute Basophils (0.0-0.2) 10^3/uL 0.04 Sodium Cancelled Potassium Cancelled Chloride Cancelled Carbon Dioxide Cancelled Anion Gap Cancelled BUN Cancelled Creatinine Cancelled Est GFR (CKD-EPI 2020) Cancelled Glucose Cancelled Calcium Cancelled Total Bilirubin Cancelled AST Cancelled ALT Cancelled Alkaline Phosphatase Cancelled Troponin I Cancelled Total Protein Cancelled Albumin Cancelled Range/Units 01/22/23 17:14 WBC (4.4-10.8) 10^3/uL RBC (4.36-5.78) 10^6/uL Hgb (13.5-17.5) g/dL Hct (40.0-50.0) % MCV (80-95) fL MCH (27.0-33.0) pg MCHC (32.0-36.0) % RDW (11.8-14.1) % Plt Count (130-400) 10^3/uL MPV (8.0-11.0) fL Immature Gran % Neutrophils % Lymphocytes % Monocytes % Eosinophils % Basophils % Nucleated RBC % (0.0-0.3) % Absolute Neutrophils (1.2-6.7) 10^3/uL Absolute Lymphocytes (1.2-3.4) 10^3/uL Absolute Monocytes (0.1-0.8) 10^3/uL Absolute Eosinophils (0.0-0.7) 10^3/uL Absolute Basophils (0.0-0.2) 10^3/uL Sodium Potassium Chloride Carbon Dioxide Anion Gap BUN Creatinine Est GFR (CKD-EPI 2020) Glucose Calcium Total Bilirubin AST ALT Alkaline Phosphatase Troponin I Cancelled Total Protein Albumin
--- NOTE | 2023-01-22 15:03 | ED.GENADUL_ITS ---
Discharge Plan Disposition Patient Disposition: Home Discharge Details Clinical Impression: Chest pain, Gastroesophageal reflux disease, Anxiety Primary Care Provider: Brendon Vivar ED Provider: Terri Andrade Home Meds and New Rx's Prescriptions: Continued prednisone 20 mg tablet 20 mg PO DAILY 5 Days Qty: 5 0RF clonazepam 1 mg tablet 1 mg PO BID Qty: 56 0RF methadone 10 mg/5 mL solution 110 mg PO QAM magnesium gluconate 27 mg magnesium (500 mg) tablet 27 mg PO BID Qty: 60 3RF gabapentin 300 mg capsule 300 mg PO TID Qty: 270 3RF cyclobenzaprine 10 mg tablet 10 mg PO TID PRN (Reason: muscle spasm) Qty: 30 3RF calcium carbonate [Tums] 200 mg calcium (500 mg) tablet,chewable 1,000 mg PO BID Qty: 0 0RF Hold Instructions: Resume on 06/15/22. calcitriol 0.5 mcg capsule 0.5 mcg PO BID Qty: 360 3RF Hold Instructions: Resume on 06/15/22. diclofenac sodium 1 % gel 4 g topical QID Qty: 100 0RF Rx Instructions: apply to single knee, ankle, foot; for foot includes sole/toes/top of foot benzonatate 100 mg capsule 100 mg PO TID PRN (Reason: cough) Qty: 14 0RF Patient Comments: no longer taking Rx Instructions: Take 1 capsule up to 3 times daily as needed for cough Discharge Instructions Instructions: Chest Pain (ED), GERD (Gastroesophageal Reflux Disease) (ED), Anxiety (ED) Additional Instructions: Talk to your primary care doc about another medicine for anxiety. Start your Prilosec again to see if this helps with the stinging pain. Return to ED for crushing chest pain, difficulty breathing, fever, or any other concerns. Medical Decision Making Patient states the GI cocktail helped and he has some Prilosec at home. He will take this for a week to see if that helps. Gets chest pain on a daily basis and takes clonazepam as needed. I did ask him to speak to his primary care doctor about a different anxiety medication that might help him more. He feels better and is calling a taxi to go home. Medical Records Medical records reviewed: Yes I reviewed the patient's medical records. Lab Data Lab results reviewed: Yes I reviewed the patient's lab results. Lab results narrative: Labs are unremarkable. Calcium and troponin are normal. ECG Data Attestation: I personally reviewed and interpreted this ECG (s) as follows: (Sinus tachycardia at 120, no change when compared to December 2022.) HPI General Date/Time Provider Initiated Documentation: 01/22/23 13:50 . HPI Narrative: This 27-year-old male patient presents with a chief complaint of substernal chest pain that began about an hour prior to arrival. Patient states he has chest pain on a daily basis but it is not usually like this. He attributes it to his anxiety. He states that initially his chest felt numb and that it felt like frostbite. And he felt a little bit sharp. He feels it in his throat as well. He has not really tried anything for it so does not know whether anything makes it better or worse. We did give him a little bit of Ativan when he came in but this is made him sleepy but not changed chest pain. Pain is moderate in intensity. He has no fever, URI symptoms, or shortness of breath. There is no belly pain. Is no pedal edema or chest pain. Does have a number of medical problems including M EN 1, primary hyperparathyroidism, chronic kidney disease, history of electrolyte imbalance, Oddi dysfunction, etc. Related Data Home Medications Medication Instructions Recorded Confirmed methadone 10 mg/5 mL oral solution 110 mg PO QAM 11/16/21 01/20/23 calcitriol 0.5 mcg capsule 0.5 mcg PO BID #360 caps 06/14/22 01/20/23 calcium carbonate 200 mg calcium 1,000 mg PO BID #0 tabs 06/14/22 01/20/23 (500 mg) chewable tablet (Tums) magnesium gluconate 27 mg 27 mg PO BID #60 tabs 11/08/22 01/20/23 magnesium (500 mg) tablet cyclobenzaprine 10 mg tablet 10 mg PO TID PRN muscle spasm #30 12/03/22 01/20/23 tabs gabapentin 300 mg capsule 300 mg PO TID #270 caps 12/03/22 01/20/23 diclofenac sodium 1 % topical gel 4 g topical QID #100 grams 12/07/22 01/20/23 benzonatate 100 mg capsule 100 mg PO TID PRN cough #14 caps 06/28/23 08/07/23 clonazepam 1 mg tablet 1 mg PO BID #56 tabs 01/20/23 01/20/23 prednisone 20 mg tablet 20 mg PO DAILY 5 days #5 tabs 01/20/23 01/20/23 Previous Rx's Medication Instructions Recorded calcitriol 0.5 mcg capsule 0.5 mcg PO BID #360 caps 06/14/22 calcium carbonate 200 mg calcium 1,000 mg PO BID #0 tabs 06/14/22 (500 mg) chewable tablet (Tums) magnesium gluconate 27 mg 27 mg PO BID #60 tabs 11/08/22 magnesium (500 mg) tablet cyclobenzaprine 10 mg tablet 10 mg PO TID PRN muscle spasm #30 12/03/22 tabs gabapentin 300 mg capsule 300 mg PO TID #270 caps 12/03/22 diclofenac sodium 1 % topical gel 4 g topical QID #100 grams 12/07/22 benzonatate 100 mg capsule 100 mg PO TID PRN cough #14 caps 12/11/22 clonazepam 1 mg tablet 1 mg PO BID #56 tabs 01/20/23 prednisone 20 mg tablet 20 mg PO DAILY 5 days #5 tabs 01/20/23 Allergies Allergy/AdvReac Type Severity Reaction Status Date / Time codeine Allergy Intermediate Verified 01/20/23 13:13 Penicillins Allergy Skin Rash Verified 01/20/23 13:13 amoxicillin AdvReac Intermediate Nausea Verified 01/20/23 13:13 General Stated Complaint: Chest Pain ADRIANA: 2 Review of Systems Constitutional Constitutional: Denies chills, Denies fever(s), Denies headache(s) and Denies weakness Eyes Eyes: Denies diplopia and Reports other (no redness) ENT Ears, Nose, Mouth, and Throat: Denies otalgia, Denies headache(s), Denies nasal congestion, Denies nasal discharge, Denies neck pain and Denies sore throat Cardiovascular Cardiovascular: Reports chest pain, Denies palpitations and Denies dyspnea Respiratory Respiratory: Denies cough and Denies dyspnea Gastrointestinal Gastrointestinal: Denies abdominal pain, Denies diarrhea, Denies nausea and Denies vomiting Genitourinary Genitourinary: Denies difficulty urinating and Denies dysuria Musculoskeletal Musculoskeletal: Denies myalgias, Denies muscle weakness, Denies neck pain, Denies numbness and Reports other (edema) Integumentary/Breasts Skin/Breast: Denies change in pigmentation and Denies rash Neurologic Neurologic: Denies headache(s), Denies numbness and Denies weakness Endocrine Endocrine: Denies palpitations [facility] All Active Problems (Updated 01/22/23 @ 15:53 by Terri Andrade MD) Chest pain (Acute) Gastroesophageal reflux disease (Chronic) Anxiety (Chronic) Inflammatory arthritis (Acute) Allergic reaction to penicillin (Acute) Medication reaction (Acute) Constipation (Acute) Acute tension headache (Acute) Anxiety (Chronic) Tingling in extremities (Acute) Dental infection (Acute) Costochondritis (Acute 12/13/22) [facility] Cellulitis (Acute) Severe anxiety with panic (Chronic) Family history of coronary arteriosclerosis (Chronic) Father of [place] at 50, mother had [place] at 42 Elevated parathyroid hormone (Acute) Suicidal ideation (Acute) Depression (Chronic) Hypocalcemia (Chronic) Hypomagnesemia (Chronic) Depression (Chronic) Primary hyperparathyroidism (Chronic) Chronic constipation (Chronic) Multiple endocrine neoplasia type I (Chronic) Iatrogenic hypocalcemia (Acute) Abdominal pain (Acute) Common bile duct dilatation (Acute) Intrahepatic bile duct dilation (Acute) Abnormal CT scan, kidney (Acute) Sphincter of Oddi dysfunction (Chronic) Therapeutic opioid induced constipation (Acute) Pulmonary nodule 1 cm or greater in diameter (Chronic) Neck pain on left side (Acute) with shoulder, upper back pain.. torticollis, radiating into left hip/leg History of electrolyte imbalance (Acute) Complex medical condition (Chronic) Serious electrolyte imbalances, with gynecomastia, possible MEN Dx, CKD and anemia with baseline anxiety and Hx PTSD. CKD (chronic kidney disease) stage 2, GFR 60-89 ml/min (Acute) GFR 64-65, with Hx FLORESITA and GFR < 45 Gynecomastia, male (Acute) b/l, per CT (Jul 2022).. Possible 2' Methadone, Clnzpm (?). Surg eval (+)/No further action. 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 Adopted: No Caregiver/Support person: No Foster care: No Household members: none Housing: house Number of Children: 0 Communication Needs: None Education Level: high school Do you need help understanding health information?: Never 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 and animals: Yes (Ally) Pets and animals: dog(s) Sexually active: No Do you think of yourself as: straight/heterosexual Current gender identity: male What is your relationship status?: How often do you talk on the phone with friends or family?: twice per week How often do you get together with friends or relatives?: never Do you belong to any clubs or organized social groups?: no Panel score (0-1 are the most socially isolated patients): 0 What type of physical activity do you participate in: walking Duration: 15-30 minutes/day Frequency: 5-6 times per week Maryam/Adventism: Anglican Special maryam needs: No Seatbelt use: always Helmet use: Yes Helmet use: always Drive 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 frontload 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 Exam Const General: no acute distress, well developed, well groomed and not in acute d istress Nutritional Appearance: well nourished Orientation: alert and oriented x3 HENMT Head: normocephalic and atraumatic Ears: external ears normal Mouth: oropharynx normal and moist mucous membranes Throat: posterior oropharynx normal Eyes Conjunctivae: conjunctivae normal Neck Neck: full ROM and supple Chest Chest: normal inspection of the chest Resp Effort & Inspection: normal respiratory effort Auscultation: clear to auscultation bilaterally Cardio Rate: regular rate Rhythm: regular rhythm Heart Sounds: no murmurs and no rubs GI Inspection: normal to inspection Palpation: soft, nontender and other (non distended) Auscultation: normal bowel sounds Skin General skin exam: no rashes or lesions noted and other (pink, warm, dry) Neuro General: patient alert, patient awake and patient oriented x3 Speech: speech normal Motor: other (CHISHOLM) Sensory Exam: no sensory deficits noted Extrem General: normal to inspection, full ROM and pedal edema present Psych Mental Status: mental status grossly normal Speech and Movement: speech and movement normal Affect: normal affect Course Vital Signs Vital signs: Vital Signs Temperature 36.6 C 01/22/23 13:39 Pulse 132 H 01/22/23 13:39 Respiratory Rate 22 01/22/23 13:39 Blood Pressure 106/63 01/22/23 13:39 Pulse Oximetry 94 01/22/23 13:39 Temperature 36.6 C 01/22/23 13:39 Temperature Source Oral 01/22/23 13:39 Pulse 96 H 01/22/23 14:13 Pulse 93 H 01/22/23 14:10 Respiratory Rate 16 01/22/23 14:13 Respiratory Effort Normal, Non-Labored, Short of Breath 01/22/23 13:50 Respiratory Depth Normal 01/22/23 13:50 Respiratory Pattern Normal 01/22/23 13:50 Blood Pressure 107/69 01/22/23 14:13 Blood Pressure Position Sitting 01/22/23 13:39 Pulse Oximetry 94 01/22/23 14:13 Oxygen Delivery Method Room Air 01/22/23 14:13 Oxygen Flow Rate 0 01/22/23 14:13 Pain Level 7 01/22/23 13:39 Lab/Test Results Lab/Test Results: Laboratory Tests Range/Units 01/22/23 01/22/23 01/22/23 13:49 13:49 13:49 WBC (4.4-10.8) 10^3/uL 7.85 RBC (4.36-5.78) 10^6/uL 3.93 L Hgb (13.5-17.5) g/dL 12.1 L Hct (40.0-50.0) % 35.9 L MCV (80-95) fL 91 MCH (27.0-33.0) pg 30.8 MCHC (32.0-36.0) % 33.7 RDW (11.8-14.1) % 12.7 Plt Count (130-400) 10^3/uL 283 MPV (8.0-11.0) fL 11.4 H Immature Gran % 0.3 Neutrophils % 58.8 Lymphocytes % 26.5 Monocytes % 11.1 Eosinophils % 2.8 Basophils % 0.5 Nucleated RBC % (0.0-0.3) % 0.0 Absolute Neutrophils (1.2-6.7) 10^3/uL 4.62 Absolute Lymphocytes (1.2-3.4) 10^3/uL 2.08 Absolute Monocytes (0.1-0.8) 10^3/uL 0.87 H Absolute Eosinophils (0.0-0.7) 10^3/uL 0.22 Absolute Basophils (0.0-0.2) 10^3/uL 0.04 Sodium Cancelled Potassium Cancelled Chloride Cancelled Carbon Dioxide Cancelled Anion Gap Cancelled BUN Cancelled Creatinine Cancelled Est GFR (CKD-EPI 2020) Cancelled Glucose Cancelled Calcium Cancelled Total Bilirubin Cancelled AST Cancelled ALT Cancelled Alkaline Phosphatase Cancelled Troponin I Cancelled Total Protein Cancelled Albumin Cancelled Range/Units /03/08 17:14 WBC (4.4-10.8) 10^3/uL RBC (4.36-5.78) 10^6/uL Hgb (13.5-17.5) g/dL Hct (40.0-50.0) % MCV (80-95) fL MCH (27.0-33.0) pg MCHC (32.0-36.0) % RDW (11.8-14.1) % Plt Count (130-400) 10^3/uL MPV (8.0-11.0) fL Immature Gran % Neutrophils % Lymphocytes % Monocytes % Eosinophils % Basophils % Nucleated RBC % (0.0-0.3) % Absolute Neutrophils (1.2-6.7) 10^3/uL Absolute Lymphocytes (1.2-3.4) 10^3/uL Absolute Monocytes (0.1-0.8) 10^3/uL Absolute Eosinophils (0.0-0.7) 10^3/uL Absolute Basophils (0.0-0.2) 10^3/uL Sodium Potassium Chloride Carbon Dioxide Anion Gap BUN Creatinine Est GFR (CKD-EPI 2020) Glucose Calcium Total Bilirubin AST ALT Alkaline Phosphatase Troponin I Cancelled Total Protein Albumin
[2023-01-22 15:17] LABS: ALT 52 U/L (16-63); AST 29 U/L (15-37); Alkaline Phosphatase 124 U/L (46-116); BUN 13 mg/dL (7-18); Bilirubin, Total 0.3 mg/dL (0.2-1.0); CREATININE 1.3 mg/dL (0.70-1.30); Calcium 9.3 mg/dL (8.5-10.1); Chloride 107 mmol/L (98-107); Estimated GFR 76.26 (mL/min/1.73m2); Glucose 108 mg/dL (74-106); Sodium 147 mmol/L (136-145); Total Protein 7.1 g/dL (6.4-8.2)
[2023-01-22 15:19] LABS: Troponin I < 50 ng/L (<or=60)
[2023-01-22] MEDS: Mylanta Suspension 30 ML CUP (15:26)
[2023-01-22] MEDS: Lidocaine 2% Jelly 6 ML SYR (15:26)
[2023-01-22] MEDS: Lidocaine 2% Jelly 11 ML SYR (15:30)
[2023-01-22 16:00] VITALS: BP 108/73; PULSE 86; RESP 16; O2SAT 96
== END 2023-01-22 16:03 | disposition home or self-care (01) ==
PROVIDERS: Emergency Provider Emergency Medicine; PCP Family Medicine
DX: R07.9 Chest pain, unspecified (principal); F41.9 Anxiety disorder, unspecified; K21.9 Gastro-esophageal reflux disease without esophagitis
CPT/HCPCS: 80053; 93005; 96374; 99284; 71046; 84484; 85025; 93010; J2060; J3490

== ENCOUNTER 2023-01-26 09:35 | Emergency (ER) | payer OTHER, SELFPAY ==
[2023-01-26 09:44] VITALS: BP 137/84; PULSE 98; RESP 20; TEMP 37.1; O2SAT 97
--- NOTE | 2023-01-26 09:45 | DI.RAD_ITS ---
Exam(s) XR WRIST RT COMPLETE EXAM: XR WRIST RT COMPLETE CLINICAL HISTORY: fall. TECHNIQUE: 2D digital imaging was performed. Three views. COMPARISON: CR RIGHT WRIST COMPLETE from 03/09/2012 CR XR WRIST RT COMPLETE from 08/09/2021 FINDINGS: BONES: Old fracture deformity of the navicular. Dorsal tilt of the lunate. Proximal migration of th e capitate. Chronic widening of the scapholunate distance. No acute fracture is present. No bony de structive lesion is seen. SOFT TISSUE: Normal. IMPRESSION: Chronic scaphoid deformity. No acute abnormality. DATA REPOSITORY: RADIATION DOSE DELIVERED:
--- NOTE | 2023-01-26 09:54 | ED.GENADUL_ITS ---
Discharge Plan Discharge Details Chief Complaint: Orthopedic Primary Care Provider: Brendon Vivar ED Provider: Ryne De Leon Home Meds and New Rx's Prescriptions: No Action prednisone 20 mg tablet 20 mg PO DAILY 5 Days Qty: 5 0RF Patient Comments: no longer taking clonazepam 1 mg tablet 1 mg PO BID Qty: 56 0RF methadone 10 mg/5 mL solution 110 mg PO QAM magnesium gluconate 27 mg magnesium (500 mg) tablet 27 mg PO BID Qty: 60 3RF gabapentin 300 mg capsule 300 mg PO TID Qty: 270 3RF cyclobenzaprine 10 mg tablet 10 mg PO TID PRN (Reason: muscle spasm) Qty: 30 3RF calcium carbonate [Tums] 200 mg calcium (500 mg) tablet,chewable 1,000 mg PO BID Qty: 0 0RF Hold Instructions: Resume on 06/15/22. calcitriol 0.5 mcg capsule 0.5 mcg PO BID Qty: 360 3RF Hold Instructions: Resume on 06/15/22. diclofenac sodium 1 % gel 4 g topical QID Qty: 100 0RF Rx Instructions: apply to single knee, ankle, foot; for foot includes sole/toes/top of foot benzonatate 100 mg capsule 100 mg PO TID PRN (Reason: cough) Qty: 14 0RF Patient Comments: no longer taking Rx Instructions: Take 1 capsule up to 3 times daily as needed for cough Medical Decision Making X-rays of the right shoulder were negative. X-rays of the right wrist suggestive of prior trauma without any acute findings consistent with acute fracture. Given that he is having pain and radiology is considering a CT scan to better delineate the anatomy given his chronic injuries I believe that a cock-up splint with follow-up with Ortho as an outpatient in a week is recommended. HPI General Date/Time Provider Initiated Documentation: 01/26/23 09:53 . HPI Narrative: 27-year-old was playing softball this morning with his friends at 730. He tripped and fell and broke his fall with his wrist and also landed on his right shoulder. He has been icing the areas since then. Pain in the right wrist and right shoulder. No head trauma no chest trauma no shortness of breath. No abdominal pain no nausea no vomiting. He has not noticed any deformities. No weakness Related Data Home Medications Medication Instructions Recorded Confirmed methadone 10 mg/5 mL oral solution 110 mg PO QAM 11/16/21 01/26/23 calcitriol 0.5 mcg capsule 0.5 mcg PO BID #360 caps 06/14/22 01/26/23 calcium carbonate 200 mg calcium 1,000 mg PO BID #0 tabs 06/14/22 01/26/23 (500 mg) chewable tablet (Tums) magnesium gluconate 27 mg 27 mg PO BID #60 tabs 11/08/22 01/26/23 magnesium (500 mg) tablet cyclobenzaprine 10 mg tablet 10 mg PO TID PRN muscle spasm #30 12/03/22 01/26/23 tabs gabapentin 300 mg capsule 300 mg PO TID #270 caps 12/03/22 01/26/23 diclofenac sodium 1 % topical gel 4 g topical QID #100 grams 12/07/22 01/26/23 benzonatate 100 mg capsule 100 mg PO TID PRN cough #14 caps 12/11/22 01/20/23 clonazepam 1 mg tablet 1 mg PO BID #56 tabs 01/20/23 01/26/23 prednisone 20 mg tablet 20 mg PO DAILY 5 days #5 tabs 01/20/23 01/20/23 Previous Rx's Medication Instructions Recorded calcitriol 0.5 mcg capsule 0.5 mcg PO BID #360 caps 06/14/22 calcium carbonate 200 mg calcium 1,000 mg PO BID #0 tabs 06/14/22 (500 mg) chewable tablet (Tums) magnesium gluconate 27 mg 27 mg PO BID #60 tabs 11/08/22 magnesium (500 mg) tablet cyclobenzaprine 10 mg tablet 10 mg PO TID PRN muscle spasm #30 12/03/22 tabs gabapentin 300 mg capsule 300 mg PO TID #270 caps 12/03/22 diclofenac sodium 1 % topical gel 4 g topical QID #100 grams 12/07/22 benzonatate 100 mg capsule 100 mg PO TID PRN cough #14 caps 12/11/22 clonazepam 1 mg tablet 1 mg PO BID #56 tabs 01/20/23 prednisone 20 mg tablet 20 mg PO DAILY 5 days #5 tabs 01/20/23 Allergies Allergy/AdvReac Type Severity Reaction Status Date / Time codeine Allergy Intermediate Verified 01/26/23 09:47 Penicillins Allergy Skin Rash Verified 01/26/23 09:47 amoxicillin AdvReac Intermediate Nausea Verified 01/26/23 09:47 General Stated Complaint: Orthopedic ADRIANA: 4 Review of Systems Constitutional Comments: 10 point review of system is negative unless otherwise specified in the HPI [facility] All Active Problems (Updated 01/24/23 @ 00:04 by HAMMAD WILEY) Chest pain (Acute) Gastroesophageal reflux disease (Chronic) Anxiety (Chronic) Inflammatory arthritis (Acute) Allergic reaction to penicillin (Acute) Medication reaction (Acute) Constipation (Acute) Anxiety (Chronic) Tingling in extremities (Acute) Dental infection (Acute) Costochondritis (Acute 12/13/22) [facility] Cellulitis (Acute) Severe anxiety with panic (Chronic) Family history of coronary arteriosclerosis (Chronic) Father of [place] at 50, mother had [place] at 42 Elevated parathyroid hormone (Acute) Suicidal ideation (Acute) Depression (Chronic) Hypocalcemia (Chronic) Hypomagnesemia (Chronic) Depression (Chronic) Primary hyperparathyroidism (Chronic) Chronic constipation (Chronic) Multiple endocrine neoplasia type I (Chronic) Iatrogenic hypocalcemia (Acute) Abdominal pain (Acute) Common bile duct dilatation (Acute) Intrahepatic bile duct dilation (Acute) Abnormal CT scan, kidney (Acute) Sphincter of Oddi dysfunction (Chronic) Therapeutic opioid induced constipation (Acute) Pulmonary nodule 1 cm or greater in diameter (Chronic) Neck pain on left side (Acute) with shoulder, upper back pain.. torticollis, radiating into left hip/leg History of electrolyte imbalance (Acute) Complex medical condition (Chronic) Serious electrolyte imbalances, with gynecomastia, possible MEN Dx, CKD and anemia with baseline anxiety and Hx PTSD. CKD (chronic kidney disease) stage 2, GFR 60-89 ml/min (Acute) GFR 64-65, with Hx FLORESITA and GFR < 45 Gynecomastia, male (Acute) b/l, per CT (Jul 2022).. Possible 2' Methadone, Clnzpm (?). Surg eval (+)/No further action. 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 Adopted: No Caregiver/Support person: No Foster care: No Household members: none Housing: house Number of Children: 0 Communication Needs: None Education Level: high school Do you need help understanding health information?: Never 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 and animals: Yes (Ally) Pets and animals: dog(s) Sexually active: No Do you think of yourself as: straight/heterosexual Current gender identity: male What is your relationship status?: How often do you talk on the phone with friends or family?: twice per week How often do you get together with friends or relatives?: never Do you belong to any clubs or organized social groups?: no Panel score (0-1 are the most socially isolated patients): 0 What type of physical activity do you participate in: walking Duration: 15-30 minutes/day Frequency: 5-6 times per week Maryam/Congregational: Zoroastrianism Special maryam needs: No Seatbelt use: always Helmet use: Yes Helmet use: always Drive 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 Exam Narrative Exam Narrative: General: A,A Ox3, Calm, no apparent distress, well developed, pleasant and cooperative Head Size/Shape: normocephalic, atraumatic Eyes Pupils: PERRLA Extraocular Mobility: intact and symmetrical Conjunctiva: non-injected, anicteric, no discharge Ears, Nose, Throat Nares: patent bilaterally Oral Cavity: moist Neck: no masses, no crepitus Lymph Nodes: no cervical lymphadenopathy Respiratory Respiratory Effort: no dyspnea Auscultation: clear to auscultation bilaterally, normal breath sounds, no wheezing, no rales/crackles Cardiovascular Heart Auscultation: regular rate and rhythm, normal S1, normal S2, no murmurs, no rubs, no gallops, Pulse Quality: +2 equal bilaterally, location(s) Abdomen Inspection and Palpation: soft, non-tender, non-distended, no hepatosplenomegaly Musculoskeletal System Joints, Bones, and Muscles: no deformities there is tenderness overlying the right wrist and the right shoulder Extremities: warm and well-perfused, no cyanosis, capillary refill <2 seconds Skin Skin Inspection: no rash, no lesions, no bruising Neurological Motor: normal tone, normal strength, moving all extremities equally Psychiatric: good insight, good judgement, normal mood and affect Course Vital Signs Vital signs: Vital Signs Temperature 37.1 C 01/26/23 09:44 Pulse 98 H 01/26/23 09:44 Respiratory Rate 20 01/26/23 09:44 Blood Pressure 137/84 01/26/23 09:44 Pulse Oximetry 97 01/26/23 09:44 Temperature 37.1 C 01/26/23 09:44 Temperature Source Skin 01/26/23 09:44 Pulse 98 H 01/26/23 09:44 Respiratory Rate 20 01/26/23 09:44 Respiratory Effort Normal 01/26/23 09:49 Blood Pressure 137/84 01/26/23 09:44 Blood Pressure Position Sitting 01/26/23 09:44 Pulse Oximetry 97 01/26/23 09:44 Oxygen Delivery Method Room Air 01/26/23 09:44 Oxygen Flow Rate 0 01/26/23 09:44 Pain Level 5 01/26/23 09:49
--- NOTE | 2023-01-26 10:15 | DI.RAD_ITS ---
Exam(s) XR SHOULDER RT COMPLETE 2+V EXAM: XR SHOULDER RT COMPLETE 2+V CLINICAL HISTORY: fall. TECHNIQUE: 2D digital imaging was performed. Five views. COMPARISON: CR LEFT SHOULDER 1 VIEW from 02/28/2008 FINDINGS: BONES: No acute fracture is present. No bony destructive lesion is seen. JOINTS: No dislocation present. SOFT TISSUE: Surgical clips right-sided neck. IMPRESSION: Unremarkable radiographs of the right shoulder. DATA REPOSITORY: RADIATION DOSE DELIVERED:
--- NOTE | 2023-01-26 10:31 | DI.VRAD_ITS ---
PROCEDURE INFORMATION: Exam: XR Right Shoulder Exam date and time: 01/26/2023 10:22 AM Age: 27 years old Clinical indication: Injury or trauma; Fall; Blunt trauma (contusions or hematomas); Shoulder; Right TECHNIQUE: Imaging protocol: Radiologic exam of the right shoulder. Views: 2 or more views. COMPARISON: US SOFT TISSUE EXTREMITY 10/22/2022 8:37 AM FINDINGS: Tubes, catheters and devices: Surgical clips in the right neck. Bones/joints: Normal. Soft tissues: Normal. IMPRESSION: No acute bony abnormality. Dictated and Authenticated by: Ajay Mcdonald MD. Ordering:NAEL Michele MD
--- NOTE | 2023-01-26 10:33 | DI.VRAD_ITS ---
PROCEDURE INFORMATION: Exam: XR Right Wrist Exam date and time: 01/26/2023 10:24 AM Age: 27 years old Clinical indication: Pain; Wrist; Right; Patient HX: Fall TECHNIQUE: Imaging protocol: Radiologic exam of the right wrist. Views: 3 or more views. 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 Widening of the scapholunate joint as before. Old ulnar styloid fracture. Ventral carpal tilt is stable. Soft tissues: Mild soft tissue swelling adjacent to the carpus. IMPRESSION: Findings suggestive of prior trauma without convincing evidence of acute fracture. CT scan may be helpful in further evaluating the anatomy. Dictated and Authenticated by: Ajay Mcdonald MD. Ordering:NAEL Michele MD
== END 2023-01-26 10:51 | disposition home or self-care (01) ==
PROVIDERS: Emergency Provider Emergency Medicine; PCP Family Medicine
DX: M25.511 Pain in right shoulder (principal); M25.531 Pain in right wrist
CPT/HCPCS: 99282; 99283; 73030; 73110

== ENCOUNTER 2023-02-01 08:35 | Emergency (ER) | payer OTHER, SELFPAY ==
[2023-02-01 08:41] VITALS: BP 123/78; PULSE 105; RESP 20; TEMP 37.6; O2SAT 96
--- NOTE | 2023-02-01 08:54 | ED.GENADUL_ITS ---
Discharge Plan Disposition Patient Disposition: Home Condition: Good Discharge Details Clinical Impression: Dental infection Primary Care Provider: Brendon Vivar ED Provider: Steph Jones Home Meds and New Rx's Prescriptions: New clindamycin HCl 150 mg capsule 450 mg PO TID 7 Days Qty: 63 0RF Continued prednisone 20 mg tablet 20 mg PO DAILY 5 Days Qty: 5 0RF Patient Comments: no longer taking clonazepam 1 mg tablet 1 mg PO BID Qty: 56 0RF methadone 10 mg/5 mL solution 110 mg PO QAM magnesium gluconate 27 mg magnesium (500 mg) tablet 27 mg PO BID Qty: 60 3RF gabapentin 300 mg capsule 300 mg PO TID Qty: 270 3RF cyclobenzaprine 10 mg tablet 10 mg PO TID PRN (Reason: muscle spasm) Qty: 30 3RF calcium carbonate [Tums] 200 mg calcium (500 mg) tablet,chewable 1,000 mg PO BID Qty: 0 0RF Hold Instructions: Resume on 06/15/22. calcitriol 0.5 mcg capsule 0.5 mcg PO BID Qty: 360 3RF Hold Instructions: Resume on 06/15/22. diclofenac sodium 1 % gel 4 g topical QID Qty: 100 0RF Rx Instructions: apply to single knee, ankle, foot; for foot includes sole/toes/top of foot benzonatate 100 mg capsule 100 mg PO TID PRN (Reason: cough) Qty: 14 0RF Patient Comments: no longer taking Rx Instructions: Take 1 capsule up to 3 times daily as needed for cough Discharge Instructions Instructions: Dental Abscess (ED) Additional Instructions: Your urinalysis is reassuring here today. No infection. I am concerned that you have a dental infection as the previous was not completely treated. Please take the antibiotics as prescribed. Even if symptoms improve, please take the entire course. Please keep your appointment with your primary care and your dentist. If you develop new/worsening symptoms please seek care urgently once again. Referrals: Brendon Vivar DO [Primary Care Provider] - Medical Decision Making Patient is a pleasant 27-year-old male, well-known to myself in the department, presenting today with chief complaint of feeling warm and dysuria. He reports that this began last night. He states that he was treated last week by his dentist for dental infection on the right lower side. He scheduled to have this tooth removed this coming . He reports that at that time he had an acute onset of his chronic discomfort in the right lower dentition but it resolved after about 2 days of the clindamycin so he stopped the antibiotics. He states that his feeling warm started again last night and has given him general malaise. He is currently afebrile. States that he has been hydrating. He denies any cough. No nasal discharge, no ear pain, no difficulty swallowing or pain with swallowing, denies any acute shortness of breath, chest pain. Also endorses some dysuria, increased urgency but denies any frequency. He is never had a UTI historically. He states that when he urinates he has pain in the bladder. He denies any sexual activity or history of STI. Denies any penile discharge, penile lesions, testicular pain or swelling. On exam, patient appears nontoxic, resting comfortably. He has generally poor dentition and the right lower near the #32, appears to be eroding the gumline. There is no acute erythema, warmth, swelling or fluctuance. He reports that overall this area continues to be quite uncomfortable for him but is not as bad as it had been historically. I do not palpate any lymph nodes. No tonsillar swelling, uvular displacement or evidence of spreading abscess/infection. Abdomen is soft, no guarding, rebound or peritoneal findings. Mild left-sided CVA tenderness. We will obtain a urinalysis to evaluate for any potential infection. Given his sexual history, I do not see a risk for STI at this time. His pain is just with urination into the bladder so I do not have indication at this time for nephrolithiasis. Patient does not appear septic. Plan to put the patient back on antibiotics for his dental infection as this is most likely underlying source while he does not appear to be acutely worsening at this time or have significant fluid collection. I do not want him to delay his definitive care with acute infection as he does have this scheduled for this week. Urinalysis is reassuring here today, no evidence of infection. I discussed this with the patient again we discussed any potential sexual source of symptoms and he is adamant that he has not had any sexual experiences in several years. He is not having any symptoms of STI. I do not see indication for imaging at this time. We will begin him again on clindamycin. He is seeing his primary care in 3 days as well as the dentist in 5 days. He has had a history of kidney stones but states this is not the same. Return precautions discussed. He has f/u with PCP in 3 days, dentist in 5. All of his questions and concerns were addressed, he is in agreement wit faith aquino. HPI General Date/Time Provider Initiated Documentation: 02/01/23 08:37 . Limitations to Documentation: no limitations . Information obtained by: patient and RN notes reviewed . History of Present Illness 27 year old M presents to the emergency department with the chief complaint of warm at home, dysurea, dental infection, described as moderate, and is localized to the mouth and pelvis. Patient started experiencing this day(s) (1) and it has been constant. No relieving factors improve symptom(s), No exacerbating factors reported . Patient notes fever/chills, loss of appetite and malaise; denies chest pain, cough, diaphoresis, headaches, nausea/vomiting, rash and shortness of breath. Patient did receive the following treatments prior to arrival, none Related Data Home Medications Medication Instructions Recorded Confirmed methadone 10 mg/5 mL oral solution 110 mg PO QAM 11/16/21 02/01/23 calcitriol 0.5 mcg capsule 0.5 mcg PO BID #360 caps 06/14/22 02/01/23 calcium carbonate 200 mg calcium 1,000 mg PO BID #0 tabs 06/14/22 02/01/23 (500 mg) chewable tablet (Tums) magnesium gluconate 27 mg 27 mg PO BID #60 tabs 11/08/22 02/01/23 magnesium (500 mg) tablet cyclobenzaprine 10 mg tablet 10 mg PO TID PRN muscle spasm #30 12/03/22 02/01/23 tabs gabapentin 300 mg capsule 300 mg PO TID #270 caps 12/03/22 02/01/23 diclofenac sodium 1 % topical gel 4 g topical QID #100 grams 12/07/22 02/01/23 benzonatate 100 mg capsule 100 mg PO TID PRN cough #14 caps 12/11/22 02/01/23 clonazepam 1 mg tablet 1 mg PO BID #56 tabs 01/20/23 02/01/23 prednisone 20 mg tablet 20 mg PO DAILY 5 days #5 tabs 01/20/23 02/01/23 clindamycin HCl 150 mg capsule 450 mg PO TID 7 days #63 caps 02/01/23 Previous Rx's Medication Instructions Recorded calcitriol 0.5 mcg capsule 0.5 mcg PO BID #360 caps 06/14/22 calcium carbonate 200 mg calcium 1,000 mg PO BID #0 tabs 06/14/22 (500 mg) chewable tablet (Tums) magnesium gluconate 27 mg 27 mg PO BID #60 tabs 11/08/22 magnesium (500 mg) tablet cyclobenzaprine 10 mg tablet 10 mg PO TID PRN muscle spasm #30 12/03/22 tabs gabapentin 300 mg capsule 300 mg PO TID #270 caps 12/03/22 diclofenac sodium 1 % topical gel 4 g topical QID #100 grams 12/07/22 benzonatate 100 mg capsule 100 mg PO TID PRN cough #14 caps 12/11/22 clonazepam 1 mg tablet 1 mg PO BID #56 tabs 01/20/23 prednisone 20 mg tablet 20 mg PO DAILY 5 days #5 tabs 01/20/23 clindamycin HCl 150 mg capsule 450 mg PO TID 7 days #63 caps 02/01/23 Allergies Allergy/AdvReac Type Severity Reaction Status Date / Time codeine Allergy Intermediate Verified 02/01/23 09:32 Penicillins Allergy Skin Rash Verified 02/01/23 09:32 amoxicillin AdvReac Intermediate Nausea Verified 02/01/23 09:32 General Stated Complaint: GenMedical ADRIANA: 3 Review of Systems Constitutional Constitutional: Reports as per HPI ENT Ears, Nose, Mouth, and Throat: Reports as per HPI Cardiovascular Cardiovascular: Denies chest pain Respiratory Respiratory: Denies cough Gastrointestinal Gastrointestinal: Denies abdominal pain, Denies change in bowel habits and Denies vomiting Genitourinary Genitourinary: Reports as per HPI Integumentary/Breasts Skin/Breast: Reports as per HPI and Denies rash [facility] All Active Problems (Updated 02/01/23 @ 10:29 by ANDREW Magaña) Chest pain (Acute) Gastroesophageal reflux disease (Chronic) Anxiety (Chronic) Acute wrist pain (Acute) Dental infection (Acute) Inflammatory arthritis (Acute) Allergic reaction to penicillin (Acute) Medication reaction (Acute) Constipation (Acute) Tingling in extremities (Acute) Dental infection (Acute) Costochondritis (Acute 12/13/22) [facility] Cellulitis (Acute) Severe anxiety with panic (Chronic) Family history of coronary arteriosclerosis (Chronic) Father of NV at 50, mother had NV at 42 Elevated parathyroid hormone (Acute) Suicidal ideation (Acute) Depression (Chronic) Hypocalcemia (Chronic) Hypomagnesemia (Chronic) Depression (Chronic) Primary hyperparathyroidism (Chronic) Chronic constipation (Chronic) Multiple endocrine neoplasia type I (Chronic) Iatrogenic hypocalcemia (Acute) Abdominal pain (Acute) Common bile duct dilatation (Acute) Intrahepatic bile duct dilation (Acute) Abnormal CT scan, kidney (Acute) Sphincter of Oddi dysfunction (Chronic) Therapeutic opioid induced constipation (Acute) Pulmonary nodule 1 cm or greater in diameter (Chronic) Neck pain on left side (Acute) with shoulder, upper back pain.. torticollis, radiating into left hip/leg History of electrolyte imbalance (Acute) Complex medical condition (Chronic) Serious electrolyte imbalances, with gynecomastia, possible MEN Dx, CKD and anemia with baseline anxiety and Hx PTSD. CKD (chronic kidney disease) stage 2, GFR 60-89 ml/min (Acute) GFR 64-65, with Hx FLORESITA and GFR < 45 Gynecomastia, male (Acute) b/l, per CT (Jul 2022).. Possible 2' Methadone, Clnzpm (?). Surg eval (+)/No further action. 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 Adopted: No Caregiver/Support person: No Foster care: No Household members: none Housing: house Number of Children: 0 Communication Needs: None Education Level: high school Do you need help understanding health information?: Never 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 and animals: Yes (Ally) Pets and animals: dog(s) Sexually active: No Do you think of yourself as: straight/heterosexual Current gender identity: male What is your relationship status?: How often do you talk on the phone with friends or family?: twice per week How often do you get together with friends or relatives?: never Do you belong to any clubs or organized social groups?: no Panel score (0-1 are the most socially isolated patients): 0 What type of physical activity do you participate in: walking Duration: 15-30 minutes/day Frequency: 5-6 times per week Maryam/Restoration: Hindu Special maryam needs: No Seatbelt use: always Helmet use: Yes Helmet use: always Drive 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 transporter 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 Exam Const General: cooperative, healthy appearing, comfortable, no acute distress, well de veloped and well groomed Nutritional Appearance: average body habitus and well nourished Orientation: alert and awake HENMT Head: normal to inspection and normocephalic Ears: external ears normal and TM's normal bilaterally General nose exam: external nose normal and nares normal Face and sinus: normal facial exam and face symmetric Mouth: oral mucosae normal, lip normal, tongue normal, oropharynx normal and moist mucous membranes Teeth and gingiva: poor dentition (right lower has area of tenderness, gum eroding) Throat: posterior oropharynx normal, tonsils normal and uvula midline Eyes General: appearance normal, both eyes and all related structures Neck Neck: normal visual inspection, full ROM and no lymphadenopathy Resp Effort & Inspection: normal respiratory effort and no respiratory distress Auscultation: clear to auscultation bilaterally, no rales, no rhonchi and no wheezes Cardio Rate: regular rate Rhythm: regular rhythm Heart Sounds: S1 normal and S2 normal GI Inspection: normal to inspection Palpation: soft, no hepatosplenomegaly, not firm, no guarding, not rigid and nontender Back/Spine/Pelvis Back: no CVA tenderness Skin General skin exam: no rashes or lesions noted Trauma: no lacerations or abrasions Neuro General: patient alert and patient awake Cognition: normal cognition Speech: speech normal Gait: normal gait Psych Appearance: grossly normal and well kempt Mental Status: mental status grossly normal Speech and Movement: speech and movement normal Course Vital Signs Vital signs: Vital Signs Temperature 37.6 C 02/01/23 08:41 Pulse 105 H 02/01/23 08:41 Respiratory Rate 20 02/01/23 08:41 Blood Pressure 123/78 02/01/23 08:41 Pulse Oximetry 96 02/01/23 08:41 Temperature 37.6 C 02/01/23 08:41 Temperature Source Oral 02/01/23 08:41 Pulse 105 H 02/01/23 08:41 Respiratory Rate 20 02/01/23 08:41 Respiratory Effort Normal, Non-Labored 02/01/23 08:46 Blood Pressure 123/78 02/01/23 08:41 Blood Pressure Position Sitting 02/01/23 08:41 Pulse Oximetry 96 02/01/23 08:41 Oxygen Delivery Method Room Air 02/01/23 08:41 Oxygen Flow Rate 0 02/01/23 08:41 Pain Level 8 02/01/23 08:41
[2023-02-01] MEDS: Acetaminophen 325 MG TAB 650 MG PO (09:20)
[2023-02-01] MEDS: Ibuprofen 600 MG TAB PO (09:21)
[2023-02-01 09:22] VITALS: RESP 18
[2023-02-01 09:39] LABS: Bilirubin Negative (Negative); Blood Negative (Negative); Clarity Clear (Clear); Glucose Negative (Negative); Ketones Negative (Negative); Leukocyte Esterase Negative (Negative); Nitrite Negative (Negative); Specific Gravity 1.015 (1.005-1.025); Urobilinogen 0.2 mg/dL (Up to 0.2)
[2023-02-01 10:50] VITALS: BP 112/79; PULSE 75; RESP 18; O2SAT 98
== END 2023-02-01 10:52 | disposition home or self-care (01) ==
PROVIDERS: Emergency Provider Physician Assistant; PCP Family Medicine
DX: K04.7 Periapical abscess without sinus (principal)
CPT/HCPCS: 99283; 81003; 99282

== ENCOUNTER 2023-02-02 12:48 | Emergency (ER) | payer OTHER, SELFPAY ==
[2023-02-02 12:50] VITALS: BP 141/82; PULSE 96; RESP 14; TEMP 37.5; O2SAT 98
--- NOTE | 2023-02-02 13:30 | DI.RAD_ITS ---
Exam(s) XR ABDOMEN FLAT UPRIGHT EXAM: XR ABDOMEN FLAT UPRIGHT CLINICAL HISTORY: abdominal pain. TECHNIQUE: 2D digital imaging was performed. COMPARISON: CR ABD FLAT UPRIGHT PA CHEST from 11/03/2011 FINDINGS: Two views-supine and upright. The bowel gas pattern is nonspecific. No evidence of bowel obstruction or free air subjacent to the hemidiaphragms. Air is seen in the somewhat redundant sigmoid colon. No abnormal calcifications see n. Regional bones unremarkable. Slightly increased markings in left lung base retrocardiac region w hich are probably vascular. IMPRESSION: Nonspecific bowel gas pattern. No evidence of obvious bowel obstruction. No free intraperitoneal ai r. DATA REPOSITORY: RADIATION DOSE DELIVERED:
--- NOTE | 2023-02-02 14:02 | DI.VRAD_ITS ---
PROCEDURE INFORMATION: Exam: XR Abdomen Exam date and time: 02/02/2023 1:52 PM Age: 27 years old Clinical indication: Abdominal pain TECHNIQUE: Imaging protocol: Radiologic exam of the abdomen. Views: 2 Views. Upright and supine views. COMPARISON: CT ABDOMEN PELVIS W 08/19/2022 08:35 FINDINGS: Gastrointestinal tract: Moderate solid stool volume. Unremarkable small bowel. Intraperitoneal space: Normal. No free air. Bones/joints: Unremarkable for age. IMPRESSION: No acute findings. Dictated and Authenticated by: Kirti Mason MD. Ordering:JOYCE Arvizu MD
--- NOTE | 2023-02-02 14:49 | W.ED.GENAD ---
Discharge Plan Disposition Patient Disposition: Home Discharge Details Clinical Impression: Abdominal pain Primary Care Provider: Brendon Vivar ED Provider: Luh Tsai Home Meds and New Rx's Prescriptions: New Relistor 150 mg tablet 450 mg PO QAM Qty: 9 0RF Continued prednisone 20 mg tablet 20 mg PO DAILY 5 Days Qty: 5 0RF Patient Comments: no longer taking clonazepam 1 mg tablet 1 mg PO BID Qty: 56 0RF methadone 10 mg/5 mL solution 110 mg PO QAM magnesium gluconate 27 mg magnesium (500 mg) tablet 27 mg PO BID Qty: 60 3RF cyclobenzaprine 10 mg tablet 10 mg PO TID PRN (Reason: muscle spasm) Qty: 30 3RF calcitriol 0.5 mcg capsule 0.5 mcg PO BID Qty: 360 3RF Hold Instructions: Resume on 06/15/22. calcium carbonate [Tums] 200 mg calcium (500 mg) tablet,chewable 2,000 mg PO BID gabapentin 300 mg capsule 300 mg PO BID diclofenac sodium 1 % gel 4 g topical QID Qty: 100 0RF Rx Instructions: apply to single knee, ankle, foot; for foot includes sole/toes/top of foot benzonatate 100 mg capsule 100 mg PO TID PRN (Reason: cough) Qty: 14 0RF Patient Comments: no longer taking Rx Instructions: Take 1 capsule up to 3 times daily as needed for cough clindamycin HCl 150 mg capsule 450 mg PO TID 7 Days Qty: 63 0RF Discharge Instructions Instructions: Constipation (ED), Abdominal Pain (ED) Additional Instructions: Take the Relistor in the morning Follow-up with your doctor and talk about whether or not Relistor regimen with your history of methadone use may be beneficial You may take the methadone and the Relistor again tomorrow morning Have given you prescription for several days of relistor return earlier with new or worsening complaints Referrals: Brendon Vivar DO [Primary Care Provider] - Discharge Data Discharge Date/Time-TO BE ENTERED AT DEPARTURE: 02/02/23 16:03 Medical Decision Making 27-year-old male known to this facility presents with abdominal pain, diffusely tender on exam, no rebound or guarding, x-ray shows evidence of large stool burden, no evidence of free air or air-fluid levels Low suspicion for bowel obstruction Of note, I did review patient's diagnostic labs from 1 week prior and recent imaging from 12/06/2022 that does not show significant acute abnormality on abdomen and pelvis, I think the risk of ordering additional CT scan at this time outweighs benefit from d radiation risk Secondary to likely opioid induced constipation, Relistor was administered with good effect, patient had large bowel movement in the emergency department, will discharge on [facility] orally for the next several days Encouraged to talk with PCP regarding further management of his opioid-induced constipation secondary to methadone 110 mg daily Encouraged to return should he have new or worsening complaints Discharged home in stable condition with stable vitals HPI General Date/Time Provider Initiated Documentation: 02/02/23 12:58. HPI Narrative: This 27-year-old male known to this facility presents with report of constipation for the past 3 weeks, does take 110 mg of methadone daily. Has tried senna, Colace, MiraLAX, and magnesium citrate in addition to an enema without alleviation in his symptoms. He denies any fever or chills. He denies any back pain, he denies any recent IV drug use. Now has having some pressure in his left lower abdomen which is why he presents. Related Data Home Medications Medication Instructions Recorded Confirmed methadone 10 mg/5 mL oral solution 110 mg PO QAM 11/16/21 02/02/23 calcitriol 0.5 mcg capsule 0.5 mcg PO BID #360 caps 06/14/22 02/02/23 magnesium gluconate 27 mg 27 mg PO BID #60 tabs 11/08/22 02/02/23 magnesium (500 mg) tablet cyclobenzaprine 10 mg tablet 10 mg PO TID PRN muscle spasm #30 12/03/22 02/02/23 tabs diclofenac sodium 1 % topical gel 4 g topical QID #100 grams 12/07/22 02/02/23 benzonatate 100 mg capsule 100 mg PO TID PRN cough #14 caps 12/11/22 02/01/23 clonazepam 1 mg tablet 1 mg PO BID #56 tabs 01/20/23 02/02/23 prednisone 20 mg tablet 20 mg PO DAILY 5 days #5 tabs 01/20/23 02/01/23 clindamycin HCl 150 mg capsule 450 mg PO TID 7 days #63 caps 02/01/23 02/02/23 calcium carbonate 200 mg calcium 2,000 mg PO BID 02/02/23 02/02/23 (500 mg) chewable tablet (Tums) gabapentin 300 mg capsule 300 mg PO BID 02/02/23 02/02/23 methylnaltrexone 150 mg tablet 450 mg PO QAM #9 tabs 02/02/23 (Relistor) Previous Rx's Medication Instructions Recorded calcitriol 0.5 mcg capsule 0.5 mcg PO BID #360 caps 06/14/22 magnesium gluconate 27 mg 27 mg PO BID #60 tabs 11/08/22 magnesium (500 mg) tablet cyclobenzaprine 10 mg tablet 10 mg PO TID PRN muscle spasm #30 12/03/22 tabs diclofenac sodium 1 % topical gel 4 g topical QID #100 grams 12/07/22 benzonatate 100 mg capsule 100 mg PO TID PRN cough #14 caps 12/11/22 clonazepam 1 mg tablet 1 mg PO BID #56 tabs 01/20/23 prednisone 20 mg tablet 20 mg PO DAILY 5 days #5 tabs 01/20/23 clindamycin HCl 150 mg capsule 450 mg PO TID 7 days #63 caps 02/01/23 methylnaltrexone 150 mg tablet 450 mg PO QAM #9 tabs 02/02/23 (Relistor) Allergies Allergy/AdvReac Type Severity Reaction Status Date / Time codeine Allergy Intermediate Verified 02/02/23 12:55 Penicillins Allergy Skin Rash Verified 02/02/23 12:55 amoxicillin AdvReac Intermediate Nausea Verified 02/02/23 12:55 General Stated Complaint: Abd Prob ADRIANA: 3 PFSH All Active Problems (Updated 02/02/23 @ 15:32 by ANDREW Arriaga) Chest pain (Acute) Gastroesophageal reflux disease (Chronic) Anxiety (Chronic) Acute wrist pain (Acute) Dental infection (Acute) Inflammatory arthritis (Acute) Allergic reaction to penicillin (Acute) Medication reaction (Acute) Constipation (Acute) Dental infection (Acute) Costochondritis (Acute 12/13/22) [facility] Cellulitis (Acute) Severe anxiety with panic (Chronic) Family history of coronary arteriosclerosis (Chronic) Father of [place] at 50, mother had [place] at 42 Elevated parathyroid hormone (Acute) Suicidal ideation (Acute) Depression (Chronic) Hypocalcemia (Chronic) Hypomagnesemia (Chronic) Depression (Chronic) Primary hyperparathyroidism (Chronic) Chronic constipation (Chronic) Multiple endocrine neoplasia type I (Chronic) Iatrogenic hypocalcemia (Acute) Abdominal pain (Acute) Common bile duct dilatation (Acute) Intrahepatic bile duct dilation (Acute) Abnormal CT scan, kidney (Acute) Sphincter of Oddi dysfunction (Chronic) Therapeutic opioid induced constipation (Acute) Pulmonary nodule 1 cm or greater in diameter (Chronic) Neck pain on left side (Acute) with shoulder, upper back pain.. torticollis, radiating into left hip/leg History of electrolyte imbalance (Acute) Complex medical condition (Chronic) Serious electrolyte imbalances, with gynecomastia, possible MEN Dx, CKD and anemia with baseline anxiety and Hx PTSD. CKD (chronic kidney disease) stage 2, GFR 60-89 ml/min (Acute) GFR 64-65, with Hx FLORESITA and GFR < 45 Gynecomastia, male (Acute) b/l, per CT (Jul 2022).. Possible 2' Methadone, Clnzpm (?). Surg eval (+)/No further action. 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 Adopted: No Caregiver/Support person: No Foster care: No Household members: none Housing: house Number of Children: 0 Communication Needs: None Education Level: high school Do you need help understanding health information?: Never 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 and animals: Yes (Ally) Pets and animals: dog(s) Sexually active: No Do you think of yourself as: straight/heterosexual Current gender identity: male What is your relationship status?: How often do you talk on the phone with friends or family?: twice per week How often do you get together with friends or relatives?: never Do you belong to any clubs or organized social groups?: no Panel score (0-1 are the most socially isolated patients): 0 What type of physical activity do you participate in: walking Duration: 15-30 minutes/day Frequency: 5-6 times per week Maryam/Taoist: Restorationism Special maryam needs: No Seatbelt use: always Helmet use: Yes Helmet use: always 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 Do you feel safe at home: Yes Do you feel safe in your relationship?: Yes Additional Social history: on methadone Course Vital Signs Vital signs: Vital Signs Temperature 37.5 C 02/02/23 12:50 Pulse 96 H 02/02/23 12:50 Respiratory Rate 14 02/02/23 12:50 Blood Pressure 141/82 H 02/02/23 12:50 Pulse Oximetry 98 02/02/23 12:50 Temperature 37.5 C 02/02/23 12:50 Temperature Source Skin 02/02/23 12:50 Pulse 96 H 02/02/23 12:50 Respiratory Rate 14 02/02/23 12:50 Respiratory Effort Normal 02/02/23 14:04 Blood Pressure 141/82 H 02/02/23 12:50 Blood Pressure Position Sitting 02/02/23 12:50 Pulse Oximetry 98 02/02/23 12:50 Oxygen Delivery Method Room Air 02/02/23 12:50 Oxygen Flow Rate 0 02/02/23 12:50 Pain Level 7 02/02/23 12:50
[2023-02-02] MEDS: Methylnaltrexone 12 MG/0.6 ML VIAL SC (14:59)
[2023-02-02 15:11] LABS: Bilirubin Negative (Negative); Blood Negative (Negative); Clarity Clear (Clear); Glucose Negative (Negative); Ketones Negative (Negative); Leukocyte Esterase Negative (Negative); Nitrite Negative (Negative); Specific Gravity 1.015 (1.005-1.025); Urobilinogen 0.2 mg/dL (Up to 0.2); pH 7.5 (5-8)
[2023-02-02 15:50] VITALS: BP 135/75; PULSE 93; RESP 14; O2SAT 97
== END 2023-02-02 16:03 | disposition home or self-care (01) ==
PROVIDERS: Emergency Provider Physician Assistant; PCP Family Medicine
DX: K59.00 Constipation, unspecified (principal)
CPT/HCPCS: 74019; 81003; 99282; 99283

== ENCOUNTER 2023-02-10 08:57 | Emergency (ER) | payer OTHER, SELFPAY ==
[2023-02-10 09:00] VITALS: BP 114/76; PULSE 78; RESP 16; TEMP 36.8; O2SAT 96
--- NOTE | 2023-02-10 09:23 | W.ED.GENAD ---
Discharge Plan Disposition Patient Disposition: Home Condition: Stable Discharge Details Clinical Impression: Post-operative infection, Dental infection Primary Care Provider: Brendon Vivar ED Provider: Lester Bundy Home Meds and New Rx's Prescriptions: New clindamycin HCl 150 mg capsule 450 mg PO TID Qty: 90 0RF Continued clonazepam 1 mg tablet 1 mg PO BID Qty: 56 0RF methadone 10 mg/5 mL solution 110 mg PO QAM magnesium gluconate 27 mg magnesium (500 mg) tablet 27 mg PO BID Qty: 60 3RF cyclobenzaprine 10 mg tablet 10 mg PO TID PRN (Reason: muscle spasm) Qty: 30 3RF calcitriol 0.5 mcg capsule 0.5 mcg PO BID Qty: 360 3RF Hold Instructions: Resume on 06/15/22. calcium carbonate [Tums] 200 mg calcium (500 mg) tablet,chewable 2,000 mg PO BID gabapentin 300 mg capsule 300 mg PO BID diclofenac sodium 1 % gel 4 g topical QID Qty: 100 0RF Rx Instructions: apply to single knee, ankle, foot; for foot includes sole/toes/top of foot Discontinued Relistor 150 mg tablet 450 mg PO QAM Qty: 9 0RF Patient Comments: prescription done benzonatate 100 mg capsule 100 mg PO TID PRN (Reason: cough) Qty: 14 0RF Patient Comments: no longer taking Rx Instructions: Take 1 capsule up to 3 times daily as needed for cough Discharge Instructions Instructions: Dental Abscess (ED) Additional Instructions: Please take antibiotic as prescribed. You were given your initial dose here in the emergency department. Your next dose should be this afternoon. Please follow-up with your dentist today. You should have your operative wound assessed by your dentist. Please contact your primary care physician to arrange follow-up. Return to the ER immediately for any worsening or new concerning symptoms. Referrals: Brendon Vivar DO [Primary Care Provider] - Medical Decision Making 27-year-old male here 6 days status post right lower molar dental extraction with persistent discomfort and mild swelling and warmth of the face. Concern for postoperative infection versus post operative inflammatory changes. I will initiate coverage with clindamycin?patient notes allergy to penicillin and was on clindamycin prior to surgery. Initial dose of clindamycin was provided here in the emergency department to expedite care. I advised Mr. Cortes to call his dentist today to follow-up today for postoperative reassessment. He was encouraged to return immediately for any worsening or new concerning symptoms. Usual customary discharge instructions were reviewed. HPI General Mode of arrival: ambulatory. Date/Time Provider Initiated Documentation: 02/10/23 09:08. Limitations to Documentation: no limitations. Information obtained by: patient. HPI Narrative: 27-year-old male, presents with chief complaint of dental pain. Patient notes he had dental extraction 6 days ago of right lower molar. He has had pain and swelling right lower face since the extraction. He is concerned that it may be infected as he had some increased warmth in the right side of his face. No associated fever. No neck pain or difficulty swallowing. Related Data Home Medications Medication Instructions Recorded Confirmed methadone 10 mg/5 mL oral solution 110 mg PO QAM 11/16/21 02/10/23 calcitriol 0.5 mcg capsule 0.5 mcg PO BID #360 caps 06/14/22 02/10/23 magnesium gluconate 27 mg 27 mg PO BID #60 tabs 11/08/22 02/10/23 magnesium (500 mg) tablet cyclobenzaprine 10 mg tablet 10 mg PO TID PRN muscle spasm #30 12/03/22 02/10/23 tabs diclofenac sodium 1 % topical gel 4 g topical QID #100 grams 12/07/22 02/10/23 clonazepam 1 mg tablet 1 mg PO BID #56 tabs 01/20/23 02/10/23 calcium carbonate 200 mg calcium 2,000 mg PO BID 02/02/23 02/10/23 (500 mg) chewable tablet (Tums) gabapentin 300 mg capsule 300 mg PO BID 02/02/23 02/10/23 clindamycin HCl 150 mg capsule 450 mg PO TID #90 caps 02/10/23 Previous Rx's Medication Instructions Recorded calcitriol 0.5 mcg capsule 0.5 mcg PO BID #360 caps 06/14/22 magnesium gluconate 27 mg 27 mg PO BID #60 tabs 11/08/22 magnesium (500 mg) tablet cyclobenzaprine 10 mg tablet 10 mg PO TID PRN muscle spasm #30 12/03/22 tabs diclofenac sodium 1 % topical gel 4 g topical QID #100 grams 12/07/22 clonazepam 1 mg tablet 1 mg PO BID #56 tabs 01/20/23 clindamycin HCl 150 mg capsule 450 mg PO TID #90 caps 02/10/23 Allergies Allergy/AdvReac Type Severity Reaction Status Date / Time codeine Allergy Intermediate Verified 02/10/23 09:49 Penicillins Allergy Skin Rash Verified 02/10/23 09:49 amoxicillin AdvReac Intermediate Nausea Verified 02/10/23 09:49 General Stated Complaint: DentalOral ADRIANA: 3 Review of Systems Constitutional Constitutional: Denies fever(s) ENT Ears, Nose, Mouth, and Throat: Reports as per HPI [facility] All Active Problems (Updated 02/10/23 @ 09:25 by Lester Bundy MD) Chest pain (Acute) Gastroesophageal reflux disease (Chronic) Anxiety (Chronic) Acute wrist pain (Acute) Dental infection (Acute) Post-operative infection (Acute) Dental infection (Acute) Inflammatory arthritis (Acute) Medication reaction (Acute) Constipation (Acute) Costochondritis (Acute 12/13/22) [facility] ED Cellulitis (Acute) Severe anxiety with panic (Chronic) Family history of coronary arteriosclerosis (Chronic) Father of [place] at 50, mother had [place] at 42 Elevated parathyroid hormone (Acute) Suicidal ideation (Acute) Depression (Chronic) Hypocalcemia (Chronic) Hypomagnesemia (Chronic) Depression (Chronic) Primary hyperparathyroidism (Chronic) Chronic constipation (Chronic) Multiple endocrine neoplasia type I (Chronic) Iatrogenic hypocalcemia (Acute) Abdominal pain (Acute) Common bile duct dilatation (Acute) Intrahepatic bile duct dilation (Acute) Abnormal CT scan, kidney (Acute) Sphincter of Oddi dysfunction (Chronic) Therapeutic opioid induced constipation (Acute) Pulmonary nodule 1 cm or greater in diameter (Chronic) Neck pain on left side (Acute) with shoulder, upper back pain.. torticollis, radiating into left hip/leg History of electrolyte imbalance (Acute) Complex medical condition (Chronic) Serious electrolyte imbalances, with gynecomastia, possible MEN Dx, CKD and anemia with baseline anxiety and Hx PTSD. CKD (chronic kidney disease) stage 2, GFR 60-89 ml/min (Acute) GFR 64-65, with Hx FLORESITA and GFR < 45 Gynecomastia, male (Acute) b/l, per CT (Jul 2022).. Possible 2' Methadone, Clnzpm (?). Surg eval (+)/No further action. 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 Adopted: No Caregiver/Support person: No Foster care: No Household members: none Housing: house Number of Children: 0 Communication Needs: None Education Level: high school Do you need help understanding health information?: Never 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 and animals: Yes (Ally) Pets and animals: dog(s) Sexually active: No Do you think of yourself as: straight/heterosexual Current gender identity: male What is your relationship status?: How often do you talk on the phone with friends or family?: twice per week How often do you get together with friends or relatives?: never Do you belong to any clubs or organized social groups?: no Panel score (0-1 are the most socially isolated patients): 0 What type of physical activity do you participate in: walking Duration: 15-30 minutes/day Frequency: 5-6 times per week Maryam/Druze: Muslim Special maryam needs: No Seatbelt use: always Helmet use: Yes Helmet use: always 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 No sublingual edema. Right lower molar postextraction with mild swelling of the gum, no fluctuance. Right face mildly swollen and slightly red. Eyes Conjunctivae: normal conjunctivae Sclera: normal sclerae EOM: EOM intact bilaterally Neck Neck: normal visual inspection, no lymphadenopathy, trachea midline and supple Cardio Rate: regular rate and not tachycardic Skin General skin exam: no rashes or lesions noted Course Vital Signs Vital signs: Vital Signs Temperature 36.8 C 02/10/23 09:00 Pulse 78 02/10/23 09:00 Respiratory Rate 16 02/10/23 09:00 Blood Pressure 114/76 02/10/23 09:00 Pulse Oximetry 96 02/10/23 09:00 Temperature 36.8 C 02/10/23 09:00 Temperature Source Oral 02/10/23 09:00 Pulse 78 02/10/23 09:00 Respiratory Rate 16 02/10/23 09:00 Blood Pressure 114/76 02/10/23 09:00 Pulse Oximetry 96 02/10/23 09:00 Pain Level 7 02/10/23 09:00
[2023-02-10] MEDS: Clindamycin 150 MG CAP 450 MG PO (09:30)
== END 2023-02-10 10:16 | disposition home or self-care (01) ==
PROVIDERS: Emergency Provider Student in an Organized Health Care Education/Training Program; PCP Family Medicine
DX: K04.7 Periapical abscess without sinus (principal)
CPT/HCPCS: 99283; 99284

== ENCOUNTER 2023-02-12 08:05 | Emergency (ER) | payer OTHER, SELFPAY ==
[2023-02-12 08:06] VITALS: BP 130/84; PULSE 96; RESP 18; TEMP 36.6; O2SAT 99
--- NOTE | 2023-02-12 08:28 | ED.GENADUL_ITS ---
Discharge Plan Disposition Patient Disposition: Home Condition: Stable Discharge Details Clinical Impression: Chronic cervical radiculopathy, Arm pain, left Primary Care Provider: Brendon Vivar ED Provider: Lester Bundy Home Meds and New Rx's Prescriptions: Continued clonazepam 1 mg tablet 1 mg PO BID Qty: 56 0RF methadone 10 mg/5 mL solution 110 mg PO QAM magnesium gluconate 27 mg magnesium (500 mg) tablet 27 mg PO BID Qty: 60 3RF cyclobenzaprine 10 mg tablet 10 mg PO TID PRN (Reason: muscle spasm) Qty: 30 3RF calcitriol 0.5 mcg capsule 0.5 mcg PO BID Qty: 360 3RF Hold Instructions: Resume on 06/15/22. calcium carbonate [Tums] 200 mg calcium (500 mg) tablet,chewable 2,000 mg PO BID gabapentin 300 mg capsule 300 mg PO BID clindamycin HCl 150 mg capsule 450 mg PO TID Qty: 90 0RF diclofenac sodium 1 % gel 4 g topical QID Qty: 100 0RF Rx Instructions: apply to single knee, ankle, foot; for foot includes sole/toes/top of foot Discharge Instructions Instructions: Cervical Radiculopathy (ED) Additional Instructions: Please wear cervical collar continuously until cleared. Please follow-up with your primary care physician. Additional outpatient diagnostic imaging may be warranted should symptoms persist. Do not perform physical fitness or participate in any activities that worsen symptoms. Please contact your primary care physician to arrange follow-up. Return to the ER immediately for any worsening or new concerning symptoms. Referrals: Brendon Vivar DO [Primary Care Provider] - Medical Decision Making 842 -- 27yo male with multimedical problems including MEN1, here with cervical radiculopathy with certain neck positions its been chronic over the past 6 months. No recent trauma. CT of the cervical spine 10/03/22 as interpreted by radiology: No evidence of cervical spine fracture, malalignment, nor acute compromise of the cervical spinal canal. To maintain cervical immobility in [place] collar and have the patient follow-up with PCP who is following and treating neck pain. Patient also with subjective lump that he feels in his left upper arm and is concerned that his dad also had any unwanted had tumor in his arm. I do not appreciate any nodule on exam. [phone] -- I spoke with PROVISIONING SPECIALIST covering for PCP and disussed case. She will arrange for timely outpatient followup. I reviewed treatment plan with Mr. Cortes and he understands importance of timely follow-up. Disposition decision was made weighing the risks and benefits of hospitalization versus outpatient treatment, and the risk for further decompensation. The patient was stable and requested discharge. Prior to discharge, my usual and customary return precautions were reviewed with the patient - this included follow-up instructions and reason to return to the emergency department if condition worsens, does not improve as expected, or other new concerns arise. HPI General Mode of arrival: ambulatory . Date/Time Provider Initiated Documentation: 02/12/23 08:18 . Limitations to Documentation: no limitations . Information obtained by: patient . HPI Narrative: 27-year-old male well-known to the emergency department with multiple medical problems, presenting today with chief complaint of left arm pain. Patient notes he had pain in his left arm for the past 6 months. Pain radiates from his left neck down his lateral arm into his hand. He states yesterday he was at the gym and symptoms seemed worse today. He did not injure his neck yesterday. Patient states when he rotates his head to the left and angles his head toward his left shoulder he develops tingling sensation in his left first and third digits. This also has been chronic and ongoing for the past 6 months. Patient denies any recent trauma. Patient also notes concern for palpable lump in his left upper arm that again has been present chronically. Of note, patient was seen here 2 days ago for post dental extraction dental pain and swelling. He was treated with clindamycin for infection and did follow-up with his dentist who has continued antibiotic. Dental pain and swelling has significantly improved. Related Data Home Medications Medication Instructions Recorded Confirmed methadone 10 mg/5 mL oral solution 110 mg PO QAM 11/16/21 02/12/23 calcitriol 0.5 mcg capsule 0.5 mcg PO BID #360 caps 06/14/22 02/12/23 magnesium gluconate 27 mg 27 mg PO BID #60 tabs 11/08/22 02/12/23 magnesium (500 mg) tablet cyclobenzaprine 10 mg tablet 10 mg PO TID PRN muscle spasm #30 12/03/22 02/12/23 tabs diclofenac sodium 1 % topical gel 4 g topical QID #100 grams 12/07/22 02/12/23 clonazepam 1 mg tablet 1 mg PO BID #56 tabs 01/20/23 02/12/23 calcium carbonate 200 mg calcium 2,000 mg PO BID 02/02/23 02/12/23 (500 mg) chewable tablet (Tums) gabapentin 300 mg capsule 300 mg PO BID 02/02/23 02/12/23 clindamycin HCl 150 mg capsule 450 mg PO TID #90 caps 02/10/23 02/12/23 Previous Rx's Medication Instructions Recorded calcitriol 0.5 mcg capsule 0.5 mcg PO BID #360 caps 06/14/22 magnesium gluconate 27 mg 27 mg PO BID #60 tabs 11/08/22 magnesium (500 mg) tablet cyclobenzaprine 10 mg tablet 10 mg PO TID PRN muscle spasm #30 12/03/22 tabs diclofenac sodium 1 % topical gel 4 g topical QID #100 grams 12/07/22 clonazepam 1 mg tablet 1 mg PO BID #56 tabs 01/20/23 clindamycin HCl 150 mg capsule 450 mg PO TID #90 caps 02/10/23 Allergies Allergy/AdvReac Type Severity Reaction Status Date / Time codeine Allergy Intermediate Verified 02/12/23 08:09 Penicillins Allergy Skin Rash Verified 02/12/23 08:09 amoxicillin AdvReac Intermediate Nausea Verified 02/12/23 08:09 General Stated Complaint: Nk/Back Pain ADRIANA: 4 Review of Systems All systems reviewed & are unremarkable except as noted in HPI and below Constitutional Constitutional: Denies fever(s) PFSH All Active Problems (Updated 02/12/23 @ 09:35 by Lester Bundy MD) Chronic cervical radiculopathy (Acute) Arm pain, left (Acute) 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 (Acute) Chest pain (Acute) Gastroesophageal reflux disease (Chronic) Anxiety (Chronic) Acute wrist pain (Acute) Dental infection (Acute) Post-operative infection (Acute) Dental infection (Acute) Inflammatory arthritis (Acute) Medication reaction (Acute) Constipation (Acute) Costochondritis (Acute 12/13/22) LR ED Cellulitis (Acute) Severe anxiety with panic (Chronic) Family history of coronary arteriosclerosis (Chronic) Father of CT at 50, mother had CT at 42 Elevated parathyroid hormone (Acute) Suicidal ideation (Acute) Depression (Chronic) Hypocalcemia (Chronic) Hypomagnesemia (Chronic) Depression (Chronic) Primary hyperparathyroidism (Chronic) Chronic constipation (Chronic) Multiple endocrine neoplasia type I (Chronic) Iatrogenic hypocalcemia (Acute) Abdominal pain (Acute) Common bile duct dilatation (Acute) Intrahepatic bile duct dilation (Acute) Abnormal CT scan, kidney (Acute) Sphincter of Oddi dysfunction (Chronic) Therapeutic opioid induced constipation (Acute) Pulmonary nodule 1 cm or greater in diameter (Chronic) Neck pain on left side (Acute) with shoulder, upper back pain.. torticollis, radiating into left hip/leg History of electrolyte imbalance (Acute) Complex medical condition (Chronic) Serious electrolyte imbalances, with gynecomastia, possible MEN Dx, CKD and anemia with baseline anxiety and Hx PTSD. CKD (chronic kidney disease) stage 2, GFR 60-89 ml/min (Acute) GFR 64-65, with Hx FLORESITA and GFR < 45 Gynecomastia, male (Acute) b/l, per CT (Jul 2022).. Possible 2' Methadone, Clnzpm (?). Surg eval (+)/No further action. 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 Adopted: No Caregiver/Support person: No Foster care: No Household members: none Housing: house Number of Children: 0 Communication Needs: None Education Level: high school Do you need help understanding health information?: Never 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 and animals: Yes (Ally) Pets and animals: dog(s) Sexually active: No Do you think of yourself as: straight/heterosexual Current gender identity: male What is your relationship status?: How often do you talk on the phone with friends or family?: twice per week How often do you get together with friends or relatives?: never Do you belong to any clubs or organized social groups?: no Panel score (0-1 are the most socially isolated patients): 0 What type of physical activity do you participate in: walking Duration: 15-30 minutes/day Frequency: 5-6 times per week Maryam/Restorationist: Sabianist Special maryam needs: No Seatbelt use: always Helmet use: Yes Helmet use: always Drive 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 new car 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 Exam Const General: cooperative and no acute distress HENMT Head: normocephalic and atraumatic Mouth: moist mucous membranes Neck Neck: supple Resp Auscultation: clear to auscultation bilaterally, no rales, no rhonchi and no wheezes Cardio Rate: regular rate and not tachycardic Rhythm: regular rhythm Back/Spine/Pelvis Cervical Spine: cervical muscular tenderness (left paraspinal), No cervical spinal tenderness and No step off deformity Thoracic/Lumbar Spine: thoracic and lumbar spine normal to inspection Skin General skin exam: no rashes or lesions noted Neuro General: patient alert, patient awake and tone normal Motor: strength 5/5 throughout Other: sensation intact but tingling in left hand with neck tilted to left Extrem General: no edema Left upper extremity: shoulder/upper arm Details: tenderness (left upper arm), axillary nerve sensory function normal and normal ROM; no ecchymosis, elbow/forearm Details: normal to inspection, wrist Details: normal to inspection and hand Details: normal capillary refill, neuromotor exam normal, no swelling and other (patient notes when tilts head to left experiences tingling in left 1- 3 digits); no tenderness and no ecchymosis Course Vital Signs Vital signs: Vital Signs Temperature 36.6 C 02/12/23 08:06 Pulse 96 H 02/12/23 08:06 Respiratory Rate 18 02/12/23 08:06 Blood Pressure 130/84 02/12/23 08:06 Pulse Oximetry 99 02/12/23 08:06 Temperature 36.6 C 02/12/23 08:06 Temperature Source Skin 02/12/23 08:06 Pulse 96 H 02/12/23 08:06 Respiratory Rate 18 02/12/23 08:06 Respiratory Effort Normal 02/12/23 08:09 Blood Pressure 130/84 02/12/23 08:06 Blood Pressure Position Sitting 02/12/23 08:06 Pulse Oximetry 99 02/12/23 08:06 Oxygen Delivery Method Room Air 02/12/23 08:06 Oxygen Flow Rate 0 02/12/23 08:06 Pain Level 7 02/12/23 08:06
== END 2023-02-12 09:51 | disposition home or self-care (01) ==
PROVIDERS: Emergency Provider Student in an Organized Health Care Education/Training Program; PCP Family Medicine
DX: M54.12 Radiculopathy, cervical region (principal); M79.602 Pain in left arm; G89.29 Other chronic pain
CPT/HCPCS: 99282; 99284

== ENCOUNTER 2023-02-12 23:51 | Emergency (ER) | payer MEDICAID, SELFPAY ==
[2023-02-12 23:55] VITALS: BP 136/82; PULSE 90; RESP 20; TEMP 36.4; O2SAT 98
--- NOTE | 2023-02-13 00:01 | ED.GENADUL_ITS ---
Discharge Plan Disposition Patient Disposition: Home Condition: Good Discharge Details Clinical Impression: Gastritis Primary Care Provider: Brendon Vivar ED Provider: Richy Eagle Home Meds and New Rx's Prescriptions: New sucralfate [Carafate] 1 gram tablet 1 g PO BID Qty: 60 0RF pantoprazole [Protonix] [address] for susp in packet 40 mg PO DAILY Qty: 30 0RF No Action clonazepam 1 mg tablet 1 mg PO BID Qty: 56 0RF methadone 10 mg/5 mL solution 110 mg PO QAM magnesium gluconate 27 mg magnesium (500 mg) tablet 27 mg PO BID Qty: 60 3RF cyclobenzaprine 10 mg tablet 10 mg PO TID PRN (Reason: muscle spasm) Qty: 30 3RF calcitriol 0.5 mcg capsule 0.5 mcg PO BID Qty: 360 3RF Hold Instructions: Resume on 06/15/22. calcium carbonate [Tums] 200 mg calcium (500 mg) tablet,chewable 2,000 mg PO BID gabapentin 300 mg capsule 300 mg PO BID clindamycin HCl 150 mg capsule 450 mg PO TID Qty: 90 0RF diclofenac sodium 1 % gel 4 g topical QID Qty: 100 0RF Rx Instructions: apply to single knee, ankle, foot; for foot includes sole/toes/top of foot Discharge Instructions Instructions: Gastritis (ED) Additional Instructions: At this time your symptoms appear clinically consistent with a gastric irritation/ulcer. This is likely from your ibuprofen use. Please avoid the ibuprofen at this time. If you do need something for pain, you can take Tylenol alternatively. Please take the Protonix and Carafate as prescribed. These have been sent to your pharmacy on file. Continue to avoid any spicy foods, tomato-based products, or citrus products. Avoid any mint. Please take Pepto- Bismol or Maalox as needed for breakthrough irritation. If you notice any worsening of your symptoms, or any new symptoms such as vomiting, diarrhea, fever, chills, shortness of breath, chest pain, numbness, weakness, or fainting , please return immediately to the emergency department for reevaluation. Please follow up with your primary care provider as soon as possible for reassessment and reevaluation. As always, it was a pleasure participating in your medical care today. Referrals: Brendon Vivar DO [Primary Care Provider] - Medical Decision Making This is a 27-year-old male with a past medical history significant for anxiety, depression, high cholesterol, men type I, multiple electrolyte abnormalities with subsequent parathyroidectomy on 03/26/2022 at [facility], PTSD, GERD, who presents today for evaluation of epigastric pain. Patient states that he has a history of having gastric problems in the past, and has not taken his Protonix for quite some time as he no longer had a need for it since his symptoms resolved. He is quite cautious with his diet. Unfortunately about a week and a half ago he had a tooth removed and has been taking daily ibuprofen ever since that for treatment of the pain. Over the last 2 to 3 days he has had a gnawing burning sensation in the left upper quadrant. It is made worse when he eats food. Improved by nothing. He does take his daily Tums, but this has not changed it. He denies any dark or tarry stools. No vomiting or diarrhea. He also admits to some slight occasional burning when he pees. No other complaints at this time. No other modifying factors. No chest pain, shortness of breath or other complaints. Exam demonstrates well-appearing male, no abdominal tenderness on exam. Genital exam unremarkable. Symptoms at this time based on history and physical exam appear clinically consistent with gastric ulcer likely secondary to NSAID use. Symptoms inconsistent clinically with pancreatitis, cardiac etiology, aortic dissection or other acute life-threatening etiology. Will treat with GI cocktail, Protonix, and Carafate. We will test the patient's urine, monitor closely and reassess. Will recommend avoidance of NSAIDs moving forward. Patient additionally is not sexually active. He denies any discharge from his penis. Urinalysis is negative for any evidence of infection or other abnormality. Patient feeling better after GI cocktail. We will give prescription for Protonix, Carafate for home. Discussed red flags which to return. Recommend avoiding NSAIDs. I have extensively reviewed the treatment plan and discharge instructions with the patient. I have addressed all patient concerns at this time. The patient was made aware of what symptoms to monitor for that would warrant a return to the emergency department. Discussed the plan with the patie nt, they demonstrate verbal understanding and agreement with our assessment and plan at this time. The documentation in this chart was dictated using [employer] dictation software. Please excuse any dictation errors. HPI General Date/Time Provider Initiated Documentation: 02/13/23 00:00 . HPI Narrative: This is a 27-year-old male with a past medical history significant for anxiety, depression, high cholesterol, men type I, multiple electrolyte abnormalities with subsequent parathyroidectomy on 03/26/2022 at [facility], PTSD, GERD, who presents today for evaluation of epigastric pain. Patient states that he has a history of having gastric problems in the past, and has not taken his Protonix for quite some time as he no longer had a need for it since his symptoms resolved. He is quite cautious with his diet. Unfortunately about a week and a half ago he had a tooth removed and has been taking daily ibuprofen ever since that for treatment of the pain. Over the last 2 to 3 days he has had a gnawing burning sensation in the left upper quadrant. It is made worse when he eats food. Improved by nothing. He does take his daily Tums, but this has not changed it. He denies any dark or tarry stools. No vomiting or diarrhea. He also admits to some slight occasional burning when he pees. No other complaints at this time. No other modifying factors. No chest pain, shortness of breath or other complaints. Related Data Home Medications Medication Instructions Recorded Confirmed methadone 10 mg/5 mL oral solution 110 mg PO QAM 11/16/21 02/12/23 calcitriol 0.5 mcg capsule 0.5 mcg PO BID #360 caps 06/14/22 02/12/23 magnesium gluconate 27 mg 27 mg PO BID #60 tabs 11/08/22 02/12/23 magnesium (500 mg) tablet cyclobenzaprine 10 mg tablet 10 mg PO TID PRN muscle spasm #30 12/03/22 02/12/23 tabs diclofenac sodium 1 % topical gel 4 g topical QID #100 grams 12/07/22 02/12/23 clonazepam 1 mg tablet 1 mg PO BID #56 tabs 01/20/23 02/12/23 calcium carbonate 200 mg calcium 2,000 mg PO BID 02/02/23 02/12/23 (500 mg) chewable tablet (Tums) gabapentin 300 mg capsule 300 mg PO BID 02/02/23 02/12/23 clindamycin HCl 150 mg capsule 450 mg PO TID #90 caps 02/10/23 02/12/23 pantoprazole 40 mg granules 40 mg PO DAILY #30 ea 02/13/23 delayed-release for susp in packet (Protonix) sucralfate 1 gram tablet (Carafate) 1 g PO BID #60 tabs 02/13/23 Previous Rx's Medication Instructions Recorded calcitriol 0.5 mcg capsule 0.5 mcg PO BID #360 caps 06/14/22 magnesium gluconate 27 mg 27 mg PO BID #60 tabs 11/08/22 magnesium (500 mg) tablet cyclobenzaprine 10 mg tablet 10 mg PO TID PRN muscle spasm #30 12/03/22 tabs diclofenac sodium 1 % topical gel 4 g topical QID #100 grams 12/07/22 clonazepam 1 mg tablet 1 mg PO BID #56 tabs 01/20/23 clindamycin HCl 150 mg capsule 450 mg PO TID #90 caps 02/10/23 pantoprazole 40 mg granules 40 mg PO DAILY #30 ea 02/13/23 delayed-release for susp in packet (Protonix) sucralfate 1 gram tablet (Carafate) 1 g PO BID #60 tabs 02/13/23 Allergies Allergy/AdvReac Type Severity Reaction Status Date / Time codeine Allergy Intermediate Verified 02/12/23 08:09 Penicillins Allergy Skin Rash Verified 02/12/23 08:09 amoxicillin AdvReac Intermediate Nausea Verified 02/12/23 08:09 General Stated Complaint: Abd Prob ADRIANA: 3 Review of Systems All systems reviewed & are unremarkable except as noted in HPI and below PFSH All Active Problems (Updated 02/13/23 @ 00:09 by HAMMAD WILEY) Chronic cervical radiculopathy (Acute) Arm pain, left (Acute) 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 (Acute) Chest pain (Acute) Gastroesophageal reflux disease (Chronic) Anxiety (Chronic) Acute wrist pain (Acute) Dental infection (Acute) Post-operative infection (Acute) Dental infection (Acute) Inflammatory arthritis (Acute) Medication reaction (Acute) Constipation (Acute) Costochondritis (Acute 12/13/22) LR ED Cellulitis (Acute) Severe anxiety with panic (Chronic) Family history of coronary arteriosclerosis (Chronic) Father of HI at 50, mother had HI at 42 Elevated parathyroid hormone (Acute) Suicidal ideation (Acute) Depression (Chronic) Hypocalcemia (Chronic) Hypomagnesemia (Chronic) Depression (Chronic) Primary hyperparathyroidism (Chronic) Chronic constipation (Chronic) Multiple endocrine neoplasia type I (Chronic) Iatrogenic hypocalcemia (Acute) Abdominal pain (Acute) Common bile duct dilatation (Acute) Intrahepatic bile duct dilation (Acute) Abnormal CT scan, kidney (Acute) Sphincter of Oddi dysfunction (Chronic) Therapeutic opioid induced constipation (Acute) Pulmonary nodule 1 cm or greater in diameter (Chronic) Neck pain on left side (Acute) with shoulder, upper back pain.. torticollis, radiating into left hip/leg History of electrolyte imbalance (Acute) Complex medical condition (Chronic) Serious electrolyte imbalances, with gynecomastia, possible MEN Dx, CKD and anemia with baseline anxiety and Hx PTSD. CKD (chronic kidney disease) stage 2, GFR 60-89 ml/min (Acute) GFR 64-65, with Hx FLORESITA and GFR < 45 Gynecomastia, male (Acute) b/l, per CT (Jul 2022).. Possible 2' Methadone, Clnzpm (?). Surg eval (+)/No further action. 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 Adopted: No Caregiver/Support person: No Foster care: No Household members: none Housing: house Number of Children: 0 Communication Needs: None Education Level: high school Do you need help understanding health information?: Never 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 and animals: Yes (Ally) Pets and animals: dog(s) Sexually active: No Do you think of yourself as: straight/heterosexual Current gender identity: male What is your relationship status?: How often do you talk on the phone with friends or family?: twice per week How often do you get together with friends or relatives?: never Do you belong to any clubs or organized social groups?: no Panel score (0-1 are the most socially isolated patients): 0 What type of physical activity do you participate in: walking Duration: 15-30 minutes/day Frequency: 5-6 times per week Maryam/Cheondoism: Lutheran Special maryam needs: No Seatbelt use: always Helmet use: Yes Helmet use: always Drive 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 subway train 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 Exam Narrative Exam Narrative: 1.Const: Well-nourished, Well-developed, appearing stated age 2.Eyes: PERRL, no conjunctival injection, and symmetrical lids. 3.ENT: Atraumatic external nose and ears. Moist MM. Neck: Symmetric, trachea midline, No thyromegaly. 4.CVS: +S1/S2, No murmurs or gallops. Peripheral pulses 2+ and equal in all extremities. Brisk capillary refill in all extremities. 5.RESP: Unlabored respiratory effort. Clear to auscultation bilaterally. No wheezes rales or rhonchi 6.GI: Soft, Nontender/Nondistended, No hepatosplenomegaly. No guarding or rebound. No pain to McBurney's point. Negative Cedillo sign. Genital exam was performed with male nurse Simone at bedside. Genital exam demonstrates unremarkable genitalia, no discharge at the urethral meatus. No penile tenderness. 7.MSK: Normocephalic/Atraumatic, Extremities w/o deformity or ttp No cyanosis or clubbing, Normal movement of all extremities 8.Skin: Warm, Dry. No rashes or lesions. 9.Neuro: human resources partner II-XII grossly intact. Sensation grossly intact, no focal neurologic deficits. 10.Psych: (AAO) x3. Appropriate mood and affect Course Vital Signs Vital signs: Vital Signs Temperature 36.4 C 02/12/23 23:55 Pulse 90 02/12/23 23:55 Respiratory Rate 20 02/12/23 23:55 Blood Pressure 136/82 02/12/23 23:55 Pulse Oximetry 98 02/12/23 23:55 Temperature 36.4 C 02/12/23 23:55 Temperature Source Oral 02/12/23 23:55 Pulse 90 02/12/23 23:55 Respiratory Rate 20 02/12/23 23:55 Blood Pressure 136/82 02/12/23 23:55 Blood Pressure Position Sitting 02/12/23 23:55 Pulse Oximetry 98 02/12/23 23:55 Oxygen Delivery Method Room Air 02/12/23 23:55 Oxygen Flow Rate 0 02/12/23 23:55 Pain Level 6 02/12/23 23:55
[2023-02-13] MEDS: Sucralfate 1 GM TAB PO (00:10)
[2023-02-13] MEDS: Pantoprazole 40 MG TABCR PO (00:10)
[2023-02-13 00:20] LABS: Bilirubin Negative (Negative); Blood Negative (Negative); Clarity Clear (Clear); Glucose Negative (Negative); Ketones Negative (Negative); Leukocyte Esterase Negative (Negative); Nitrite Negative (Negative); Specific Gravity 1.015 (1.005-1.025); Urobilinogen 0.2 mg/dL (Up to 0.2)
== END 2023-02-13 00:33 | disposition home or self-care (01) ==
LOC: ER 02-13 00:32
PROVIDERS: Emergency Provider Student in an Organized Health Care Education/Training Program; PCP Family Medicine
DX: K29.70 Gastritis, unspecified, without bleeding; K21.9 Gastro-esophageal reflux disease without esophagitis; Z98.818 Other dental procedure status
CPT/HCPCS: 99283; 81003

== ENCOUNTER 2023-02-15 08:27 | Emergency (ER) | payer OTHER, SELFPAY ==
[2023-02-15 08:31] VITALS: BP 114/79; PULSE 90; RESP 20; TEMP 36.8; O2SAT 95
--- NOTE | 2023-02-15 09:00 | DI.US_ITS ---
Exam(s) US ABDOMEN LIMITED EXAM: US ABDOMEN LIMITED CLINICAL HISTORY: ruq, pain, scheduled for cholecystectomy TECHNIQUE: Ultrasound abdomen performed using standard protocol. COMPARISON: US US ABDOMEN LIMITED from 11/20/2022 FINDINGS: Examination limited by patient body habitus and overlying bowel. PANCREAS: Limited visualization but grossly unremarkable. LIVER: Portions of the liver are obscured due to patient body habitus. Hepatopedal flow in the Rebecca l Vein. The liver measures in 18.1 cm length. GALLBLADDER:Cholelithiasis. No evidence of wall thickening. No pericholecystic fluid identified. BILIARY SYSTEM: Common bile duct measures 7 mm. No intrahepatic biliary ductal dilation. GUERRA'S SIGN: Negative. RIGHT KIDNEY: Visualization was limited. There is thinning of the renal cortex which can be seen wit h medical renal disease. Correlate clinically. No evidence of renal calculi. No evidence of hydrone phrosis. No renal mass or cyst identified. ASCITES: None seen. ABDOMINAL AORTA AND IVC: Visualized portions normal caliber. IMPRESSION: 1. There is limited examination of the abdominal organs secondary to patient body habitus and overlyi ng bowel gas. 2. Cholelithiasis. The common duct measures 7 mm which is the upper limits of normal. No stones are seen in the duct sonographically. The choledocholithiasis cannot be excluded. DATA REPOSITORY:
[2023-02-15 09:29] LABS: HGB 11.5 g/dL (13.5-17.5); Lymphocytes % 28.5; MCH 31.6 pg (27.0-33.0); MCHC 34.8 % (32.0-36.0); MCV 91 fL (80-95); MPV 10.8 fL (8.0-11.0); Monocytes % 10.2; Neutrophils % 58.2; Platelet Count 249 10^3/uL (130-400); RBC 3.64 10^6/uL (4.36-5.78); RDW 12.1 % (11.8-14.1); RDW-SD 40.1 fL; WBC 5.76 10^3/uL (4.4-10.8)
[2023-02-15 09:30] LABS: Abs Immature Grans 0.01 10^3/uL (0.0-0.06); Absolute Basophil Count 0.03 10^3/uL (0.0-0.2); Absolute Eosinophil Count 0.14 10^3/uL (0.0-0.7); Absolute Lymphocyte Count 1.64 10^3/uL (1.2-3.4); Absolute Monocyte Count 0.59 10^3/uL (0.1-0.8); Absolute Neutrophil Count 3.35 10^3/uL (1.2-6.7); Basophils % 0.5; Eosinophils % 2.4; Immature Grans % 0.2
--- NOTE | 2023-02-15 09:30 | W.ED.GENAD ---
Discharge Plan Disposition Patient Disposition: Home Condition: Stable Discharge Details Clinical Impression: Cholelithiasis, Biliary colic Primary Care Provider: Brendon Vivar ED Provider: Lester Bundy Home Meds and New Rx's Prescriptions: Continued clonazepam 1 mg tablet 1 mg PO BID Qty: 56 0RF methadone 10 mg/5 mL solution 110 mg PO QAM magnesium gluconate 27 mg magnesium (500 mg) tablet 27 mg PO BID Qty: 60 3RF cyclobenzaprine 10 mg tablet 10 mg PO TID PRN (Reason: muscle spasm) Qty: 30 3RF calcitriol 0.5 mcg capsule 0.5 mcg PO BID Qty: 360 3RF Hold Instructions: Resume on 06/15/22. calcium carbonate [Tums] 200 mg calcium (500 mg) tablet,chewable 2,000 mg PO BID gabapentin 300 mg capsule 300 mg PO BID diclofenac sodium 1 % gel 4 g topical QID Qty: 100 0RF Rx Instructions: apply to single knee, ankle, foot; for foot includes sole/toes/top of foot pantoprazole [Protonix] [address] for susp in packet 40 mg PO DAILY Qty: 30 0RF Discharge Instructions Instructions: Biliary Colic (ED) Additional Instructions: Avoid fatty foods. Please follow-up with your surgeon as scheduled. Also noted on your ultrasound is enlarged liver that is similar to prior examination, small right kidney. Be sure to discuss these findings with your doctor. Return to the emergency department immediately for any worsening or new concerning symptoms. Referrals: Brendon Vivar DO [Primary Care Provider] - Medical Decision Making 930 -- 27-year-old male with multiple medical problems, recently diagnosed with cholelithiasis, scheduled for outpatient cholecystectomy on 02/19/2023 at [facility], presents today with worsening right upper quadrant pain, nausea and inability to tolerate oral intake. Plan to obtain right upper quadrant ultrasound and labs to assess for transaminitis. We will administer IV fluid bolus. -- Initial labs reviewed and no leukocytosis. LFTs and lipase pending. 1105 --labs reviewed, mild transaminitis noted. Normal bilirubin. No leukocytosis. Ultrasound of the right upper quadrant was interpreted by radiology: Cholelithiasis with possible choledocholithiasis, the common bile duct measures 0.7 cm in diameter. Hepatomegaly similar to prior examination. Small right kidney, does the patient have medical renal disease?. Results were discussed with Dr. Hyatt, on-call surgeon. Dr. Hyatt reviewed diagnostics and evaluated the patient and recommends discharge with outpatient follow-up. Patient is feeling better. Plan for discharge will be to follow-up for outpatient surgery as scheduled this week. Usual customary discharge instructions were reviewed with the patient. Lab Data Lab results reviewed: Yes I reviewed the patient's lab results. Labs: Laboratory Tests Range/Units 02/15/23 02/15/23 09:18 09:18 WBC (4.4-10.8) 10^3/uL 5.76 RBC (4.36-5.78) 10^6/uL 3.64 L Hgb (13.5-17.5) g/dL 11.5 L Hct (40.0-50.0) % 33.0 L MCV (80-95) fL 91 MCH (27.0-33.0) pg 31.6 MCHC (32.0-36.0) % 34.8 RDW (11.8-14.1) % 12.1 Plt Count (130-400) 10^3/uL 249 MPV (8.0-11.0) fL 10.8 Immature Gran % 0.2 Neutrophils % 58.2 Lymphocytes % 28.5 Monocytes % 10.2 Eosinophils % 2.4 Basophils % 0.5 Nucleated RBC % (0.0-0.3) % 0.0 Absolute Neutrophils (1.2-6.7) 10^3/uL 3.35 Absolute Lymphocytes (1.2-3.4) 10^3/uL 1.64 Absolute Monocytes (0.1-0.8) 10^3/uL 0.59 Absolute Eosinophils (0.0-0.7) 10^3/uL 0.14 Absolute Basophils (0.0-0.2) 10^3/uL 0.03 Sodium (136-145) mmol/L 138 Potassium (3.5-5.1) mmol/L 3.8 Chloride (98-107) mmol/L 100 Carbon Dioxide (21.0-32.0) mmol/L 30.8 Anion Gap (3-11) mmol/L 7.2 BUN (7-18) mg/dL 18 Creatinine (0.70-1.30) mg/dL 1.3 Est GFR (CKD-EPI 2020) (mL/min/1.73m2) 76.26 Glucose (74-106) mg/dL 96 Calcium (8.5-10.1) mg/dL 8.2 L Total Bilirubin (0.2-1.0) mg/dL 0.3 AST (15-37) U/L 138 H ALT (16-63) U/L 70 H Alkaline Phosphatase (46-116) U/L 110 Total Protein (6.4-8.2) g/dL 7.3 Albumin (3.4-5.0) g/dL 3.2 L Lipase (16-77) U/L 22 HPI General Mode of arrival: ambulatory. Date/Time Provider Initiated Documentation: 02/15/23 08:50. Limitations to Documentation: no limitations. Information obtained by: patient. HPI Narrative: 27-year-old male with multiple medical problems, frequent emergency department visits, here with chief complaint of right upper abdominal pain. Patient notes severe right upper abdominal pain and unable to tolerate food or drink. Patient states pain has been worsening over the past 2 days. Patient was seen at [facility] yesterday and had ultrasound of his right upper quadrant that revealed gallstones and is scheduled for cholecystectomy 02-19-2023 at [facility]. Patient denies fever. Related Data Home Medications Medication Instructions Recorded Confirmed methadone 10 mg/5 mL oral solution 110 mg PO QAM 11/16/21 02/15/23 calcitriol 0.5 mcg capsule 0.5 mcg PO BID #360 caps 06/14/22 02/15/23 magnesium gluconate 27 mg 27 mg PO BID #60 tabs 11/08/22 02/15/23 magnesium (500 mg) tablet cyclobenzaprine 10 mg tablet 10 mg PO TID PRN muscle spasm #30 12/03/22 02/15/23 tabs diclofenac sodium 1 % topical gel 4 g topical QID #100 grams 12/07/22 02/15/23 clonazepam 1 mg tablet 1 mg PO BID #56 tabs 01/20/23 02/15/23 calcium carbonate 200 mg calcium 2,000 mg PO BID 02/02/23 02/15/23 (500 mg) chewable tablet (Tums) gabapentin 300 mg capsule 300 mg PO BID 02/02/23 02/15/23 pantoprazole 40 mg granules 40 mg PO DAILY #30 ea 02/13/23 02/15/23 delayed-release for susp in packet (Protonix) Previous Rx's Medication Instructions Recorded calcitriol 0.5 mcg capsule 0.5 mcg PO BID #360 caps 06/14/22 magnesium gluconate 27 mg 27 mg PO BID #60 tabs 11/08/22 magnesium (500 mg) tablet cyclobenzaprine 10 mg tablet 10 mg PO TID PRN muscle spasm #30 12/03/22 tabs diclofenac sodium 1 % topical gel 4 g topical QID #100 grams 12/07/22 clonazepam 1 mg tablet 1 mg PO BID #56 tabs 01/20/23 pantoprazole 40 mg granules 40 mg PO DAILY #30 ea 02/13/23 delayed-release for susp in packet (Protonix) Allergies Allergy/AdvReac Type Severity Reaction Status Date / Time codeine Allergy Intermediate Verified 02/15/23 08:35 Penicillins Allergy Skin Rash Verified 02/15/23 08:35 amoxicillin AdvReac Intermediate Nausea Verified 02/15/23 08:35 General Stated Complaint: Nk/Back Pain ADRIANA: 4 PFS All Active Problems (Updated 02/15/23 @ 11:10 by Lester Bundy MD) Cholelithiasis (Acute) Biliary colic (Acute) Cholelithiases (Acute) Chronic cervical radiculopathy (Acute) Arm pain, left (Acute) 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 ED Cellulitis (Acute) Severe anxiety with panic (Chronic) Family history of coronary arteriosclerosis (Chronic) Father of MD at 50, mother had MD at 42 Elevated parathyroid hormone (Acute) Suicidal ideation (Acute) Depression (Chronic) Hypocalcemia (Chronic) Hypomagnesemia (Chronic) Depression (Chronic) Primary hyperparathyroidism (Chronic) Chronic constipation (Chronic) Multiple endocrine neoplasia type I (Chronic) Iatrogenic hypocalcemia (Acute) Abdominal pain (Acute) Common bile duct dilatation (Acute) Intrahepatic bile duct dilation (Acute) Abnormal CT scan, kidney (Acute) Sphincter of Oddi dysfunction (Chronic) Therapeutic opioid induced constipation (Acute) Pulmonary nodule 1 cm or greater in diameter (Chronic) Neck pain on left side (Acute) with shoulder, upper back pain.. torticollis, radiating into left hip/leg History of electrolyte imbalance (Acute) Complex medical condition (Chronic) Serious electrolyte imbalances, with gynecomastia, possible MEN Dx, CKD and anemia with baseline anxiety and Hx PTSD. CKD (chronic kidney disease) stage 2, GFR 60-89 ml/min (Acute) GFR 64-65, with Hx FLORESITA and GFR < 45 Gynecomastia, male (Acute) b/l, per CT (Jul 2022).. Possible 2' Methadone, Clnzpm (?). Surg eval (+)/No further action. 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 Adopted: No Caregiver/Support person: No Foster care: No Household members: none Housing: house Number of Children: 0 Communication Needs: None Education Level: high school Do you need help understanding health information?: Never 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 and animals: Yes (Ally) Pets and animals: dog(s) Sexually active: No Do you think of yourself as: straight/heterosexual Current gender identity: male What is your relationship status?: How often do you talk on the phone with friends or family?: twice per week How often do you get together with friends or relatives?: never Do you belong to any clubs or organized social groups?: no Panel score (0-1 are the most socially isolated patients): 0 What type of physical activity do you participate in: walking Duration: 15-30 minutes/day Frequency: 5-6 times per week Maryam/Scientologist: Mandaen Special maryam needs: No Seatbelt use: always Helmet use: Yes Helmet use: always Drive 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 Exam Const General: cooperative and no acute distress HENMT Mouth: moist mucous membranes Eyes Conjunctivae: normal conjunctivae Sclera: normal sclerae Neck Neck: trachea midline Resp Auscultation: clear to auscultation bilaterally, no rales, no rhonchi and no wheezes Cardio Rate: regular rate and not tachycardic Rhythm: regular rhythm GI Palpation: soft, not firm, no guarding, no masses, not rigid and tender in the RUQ and with rebound tenderness Auscultation: normal bowel sounds Skin General skin exam: no rashes or lesions noted Neuro General: patient alert, patient awake and tone normal Extrem General: no edema Course Vital Signs Vital signs: Vital Signs Temperature 36.8 C 02/15/23 08:31 Pulse 90 02/15/23 08:31 Respiratory Rate 20 02/15/23 08:31 Blood Pressure 114/79 02/15/23 08:31 Pulse Oximetry 95 02/15/23 08:31 Temperature 36.8 C 02/15/23 08:31 Temperature Source Oral 02/15/23 08:31 Pulse 90 02/15/23 08:31 Respiratory Rate 20 02/15/23 08:31 Respiratory Effort Normal, Non-Labored 02/15/23 08:38 Blood Pressure 114/79 02/15/23 08:31 Blood Pressure Position Sitting 02/15/23 08:31 Pulse Oximetry 95 02/15/23 08:31 Oxygen Delivery Method Room Air 02/15/23 08:31 Oxygen Flow Rate 0 02/15/23 08:31 Pain Level 7 02/15/23 08:31
[2023-02-15 09:41] LABS: ALT 70 U/L (16-63); AST 138 U/L (15-37); Albumin 3.2 g/dL (3.4-5.0); Alkaline Phosphatase 110 U/L (46-116); Anion Gap 7.2 mmol/L (3-11); BUN 18 mg/dL (7-18); Bilirubin, Total 0.3 mg/dL (0.2-1.0); CO2 30.8 mmol/L (21.0-32.0); CREATININE 1.3 mg/dL (0.70-1.30); Calcium 8.2 mg/dL (8.5-10.1); Chloride 100 mmol/L (98-107); Estimated GFR 76.26 (mL/min/1.73m2); Glucose 96 mg/dL (74-106); Lipase 22 U/L (16-77); Potassium 3.8 mmol/L (3.5-5.1); Sodium 138 mmol/L (136-145); Total Protein 7.3 g/dL (6.4-8.2)
--- NOTE | 2023-02-15 10:17 | DI.VRAD_ITS ---
PROCEDURE INFORMATION: Exam: US Abdomen, Limited; Right Upper Quadrant Exam date and time: 02/15/2023 9:27 AM Age: 27 years old Clinical indication: Abdominal pain and other: Ruq; Patient HX: Cholecystectomy scheduled TECHNIQUE: Imaging protocol: Real time ultrasound of the abdomen with image documentation. Limited exam focused on the right upper quadrant. COMPARISON: US ABDOMEN LIMITED 11/20/2022 12:35 PM FINDINGS: Liver: The liver is enlarged measuring 18.1 cm in craniocaudal length. There are no cysts or masses. Portal venous flow is towards the liver. Gallbladder: The gallbladder contains multiple intraluminal stones. There is no wall thickening or pericholecystic fluid. Biliary ducts: The common bile duct is borderline enlarged measuring nearly 0.7 cm in diameter. No definite choledocholithiasis. Pancreas: Visualized pancreas is unremarkable. Right kidney: The right kidney is small measuring 11.2 x 3.6 x 4.1 cm (88 cc; 155 cc normal). No mass. No hydronephrosis. There is thinning of the renal cortex. IMPRESSION: 1. Cholelithiasis with possible choledocholithiasis, the common bile duct measures 0.7 cm in diameter. 2. Hepatomegaly similar to the prior examination. 3. Small right kidney; does the patient have medical renal disease? Dictated and Authenticated by: Maldonado Sung MD. Ordering:YASIR Batista MD
[2023-02-15 10:24] VITALS: BP 109/71; PULSE 62; RESP 18; O2SAT 95
--- NOTE | 2023-02-15 10:49 | W.SURGCON ---
Date of service: 02/15/23 Time of Service: 10:49 Assessment and Plan Assessment and plan (1) Cholelithiases: Status: Acute Assessment and plan: 27-year-old man with biliary colic. Probably another gallbladder attack because he ate a large meal. He does not have a Cedillo sign. He has no white count. There is no fevers or chills. His abdominal pain has resolved subjectively as well. He is hemodynamically stable. He has no elevated bilirubin. His common bile duct is slightly distended at 7 mm which is probably consistent with passing a gallstone sometime within the last week, possibly on a couple of different occasions, possibly again last night. No evidence of infection on ultrasound and he is without wall thickening or pericholecystic fluid. I recommended that he follow-up with his surgeon and have his scheduled laparoscopic cholecystectomy this upcoming Friday. I really reiterated with him to stay on his clear liquid diet and not eat any significant meals until after his surgery. History of Present Illness Narrative: 27-year-old man has known gallstones and has had episodes of biliary colic as well as gallbladder attacks for the last couple of weeks. He has surgery scheduled electively this Friday. He admits that he was told to not eat regular food until after his surgery and to stay on a liquid, non-? fat diet however he says yesterday he was tired of doing that and ate a big meal. He then got recurrent abdominal pain and came to the emergency department. Here in the emergency department he says the pain is now gone and he is feeling a lot better. He has not had any fevers or chills. He does not really have any abdominal pain anymore. 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 (Acute) Chest pain (Acute) Gastroesophageal reflux disease (Chronic) Anxiety (Chronic) Acute wrist pain (Acute) Dental infection (Acute) Post-operative infection (Acute) Dental infection (Acute) Inflammatory arthritis (Acute) Medication reaction (Acute) Constipation (Acute) Costochondritis (Acute 12/13/22) [facility] ED Cellulitis (Acute) Severe anxiety with panic (Chronic) Family history of coronary arteriosclerosis (Chronic) Father of MD at 50, mother had MD at 42 Elevated parathyroid hormone (Acute) Suicidal ideation (Acute) Depression (Chronic) Hypocalcemia (Chronic) Hypomagnesemia (Chronic) Depression (Chronic) Primary hyperparathyroidism (Chronic) Chronic constipation (Chronic) Multiple endocrine neoplasia type I (Chronic) Iatrogenic hypocalcemia (Acute) Abdominal pain (Acute) Common bile duct dilatation (Acute) Intrahepatic bile duct dilation (Acute) Abnormal CT scan, kidney (Acute) Sphincter of Oddi dysfunction (Chronic) Therapeutic opioid induced constipation (Acute) Pulmonary nodule 1 cm or greater in diameter (Chronic) Neck pain on left side (Acute) with shoulder, upper back pain.. torticollis, radiating into left hip/leg History of electrolyte imbalance (Acute) Complex medical condition (Chronic) Serious electrolyte imbalances, with gynecomastia, possible MEN Dx, CKD and anemia with baseline anxiety and Hx PTSD. CKD (chronic kidney disease) stage 2, GFR 60-89 ml/min (Acute) GFR 64-65, with Hx FLORESITA and GFR < 45 Gynecomastia, male (Acute) b/l, per CT (Jul 2022).. Possible 2' Methadone, Clnzpm (?). Surg eval (+)/No further action. 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 Adopted: No Caregiver/Support person: No Foster care: No Household members: none Housing: house Number of Children: 0 Communication Needs: None Education Level: high school Do you need help understanding health information?: Never 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 and animals: Yes (Ally) Pets and animals: dog(s) Sexually active: No Do you think of yourself as: straight/heterosexual Current gender identity: male What is your relationship status?: How often do you talk on the phone with friends or family?: twice per week How often do you get together with friends or relatives?: never Do you belong to any clubs or organized social groups?: no Panel score (0-1 are the most socially isolated patients): 0 What type of physical activity do you participate in: walking Duration: 15-30 minutes/day Frequency: 5-6 times per week Maryam/Hoahaoism: Temple Special maryam needs: No Seatbelt use: always Helmet use: Yes Helmet use: always Drive 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 There is no Cedillo sign. Results Last Vital Signs Temp 98.2 F 02/15/23 08:31 Pulse 62 02/15/23 10:24 Resp 18 02/15/23 10:24 BP 109/71 02/15/23 10:24 Pulse Ox 95 02/15/23 10:24 Labs 02/15/23 09:18 02/15/23 09:18 Labs: Laboratory Results - last 24 hr 02/15/23 02/15/23 09:18 09:18 WBC 5.76 RBC 3.64 L Hgb 11.5 L Hct 33.0 L MCV 91 MCH 31.6 MCHC 34.8 RDW 12.1 Plt Count 249 MPV 10.8 Immature Gran % 0.2 Neutrophils % 58.2 Lymphocytes % 28.5 Monocytes % 10.2 Eosinophils % 2.4 Basophils % 0.5 Nucleated RBC % 0.0 Absolute Neutrophils 3.35 Absolute Lymphocytes 1.64 Absolute Monocytes 0.59 Absolute Eosinophils 0.14 Absolute Basophils 0.03 Sodium 138 Potassium 3.8 Chloride 100 Carbon Dioxide 30.8 Anion Gap 7.2 BUN 18 Creatinine 1.3 Est GFR (CKD-EPI 2020) 76.26 Glucose 96 Calcium 8.2 L Total Bilirubin 0.3 AST 138 H ALT 70 H Alkaline Phosphatase 110 Total Protein 7.3 Albumin 3.2 L Lipase 22
[2023-02-15 11:19] VITALS: BP 113/75; PULSE 72; RESP 18; O2SAT 96
== END 2023-02-15 11:22 | disposition home or self-care (01) ==
PROVIDERS: Emergency Provider Student in an Organized Health Care Education/Training Program; PCP Family Medicine
DX: K80.20 Calculus of gallbladder without cholecystitis without obstruction (principal); N18.2 Chronic kidney disease, stage 2 (mild); E21.0 Primary hyperparathyroidism; E78.5 Hyperlipidemia, unspecified; Z79.899 Other long term (current) drug therapy
CPT/HCPCS: 36415; 80053; 83690; 99284; 76705; 85025; 99283

== ENCOUNTER 2023-02-20 07:58 | Emergency (ER) | payer OTHER, SELFPAY ==
[2023-02-20 08:05] VITALS: BP 112/70; PULSE 112; RESP 18; TEMP 37.3; O2SAT 96
--- NOTE | 2023-02-20 08:15 | ED.GENADUL_ITS ---
Discharge Plan Disposition Patient Disposition: Eloped Discharge Details Chief Complaint: Nausea/Vomit/Diar Clinical Impression: Nausea Primary Care Provider: Brendon Vivar ED Provider: Lester Bundy Home Meds and New Rx's Prescriptions: No Action methadone 10 mg/5 mL solution 110 mg PO QAM magnesium gluconate 27 mg magnesium (500 mg) tablet 27 mg PO BID Qty: 60 3RF cyclobenzaprine 10 mg tablet 10 mg PO TID PRN (Reason: muscle spasm) Qty: 30 3RF calcitriol 0.5 mcg capsule 0.5 mcg PO BID Qty: 360 3RF Hold Instructions: Resume on 06/15/22. clonazepam 1 mg tablet 1 mg PO BID Qty: 12 0RF calcium carbonate [Tums] 200 mg calcium (500 mg) tablet,chewable 2,000 mg PO BID gabapentin 300 mg capsule 300 mg PO BID diclofenac sodium 1 % gel 4 g topical QID Qty: 100 0RF Rx Instructions: apply to single knee, ankle, foot; for foot includes sole/toes/top of foot pantoprazole [Protonix] [address] for susp in packet 40 mg PO DAILY Qty: 30 0RF Medical Decision Making 27-year-old male with multiple medical problems including cholelithiasis, here today with nausea since this morning. Patient is afebrile and has no abdominal pain or tenderness. He just came from receiving his methadone this morning. On my examination patient is not tachycardic and has a benign abdomen. Plan for treatment with antiemetic. I have ordered ondansetron. Plan to reassess. Plan discussed with the patient. I was raised the topic of frequent ED visits with the patient (>80 in the past 12 mo to this ED alone) and attempted to determine if there were social determinants of health or psychosocial aspects that we could help address and with the patient he became frustrated and eloped from the ED noting that he did not want further treatment. Patient threw out emesis bag as he was leaving. Patient observed ambulating from the ED in no distress. HPI General Mode of arrival: ambulatory . Date/Time Provider Initiated Documentation: 02/20/23 08:00 . Limitations to Documentation: no limitations . Information obtained by: patient . HPI Narrative: 27-year-old male with multiple medical problems, frequent presentations to the emergency department, here today with chief complaint of nausea. Patient notes he has been nauseous today. He does have cholelithiasis and is scheduled for outpatient surgery. Patient denies abdominal pain. Related Data Home Medications Medication Instructions Recorded Confirmed methadone 10 mg/5 mL oral solution 110 mg PO QAM 11/16/21 02/15/23 calcitriol 0.5 mcg capsule 0.5 mcg PO BID #360 caps 06/14/22 02/15/23 magnesium gluconate 27 mg 27 mg PO BID #60 tabs 11/08/22 02/15/23 magnesium (500 mg) tablet cyclobenzaprine 10 mg tablet 10 mg PO TID PRN muscle spasm #30 12/03/22 02/15/23 tabs diclofenac sodium 1 % topical gel 4 g topical QID #100 grams 12/07/22 02/15/23 calcium carbonate 200 mg calcium 2,000 mg PO BID 02/02/23 02/15/23 (500 mg) chewable tablet (Tums) gabapentin 300 mg capsule 300 mg PO BID 02/02/23 02/15/23 pantoprazole 40 mg granules 40 mg PO DAILY #30 ea 02/13/23 02/15/23 delayed-release for susp in packet (Protonix) clonazepam 1 mg tablet 1 mg PO BID #12 tabs 02/18/23 Previous Rx's Medication Instructions Recorded calcitriol 0.5 mcg capsule 0.5 mcg PO BID #360 caps 06/14/22 magnesium gluconate 27 mg 27 mg PO BID #60 tabs 11/08/22 magnesium (500 mg) tablet cyclobenzaprine 10 mg tablet 10 mg PO TID PRN muscle spasm #30 12/03/22 tabs diclofenac sodium 1 % topical gel 4 g topical QID #100 grams 12/07/22 pantoprazole 40 mg granules 40 mg PO DAILY #30 ea 02/13/23 delayed-release for susp in packet (Protonix) clonazepam 1 mg tablet 1 mg PO BID #12 tabs 02/18/23 Allergies Allergy/AdvReac Type Severity Reaction Status Date / Time codeine Allergy Intermediate Verified 02/15/23 08:35 Penicillins Allergy Skin Rash Verified 02/15/23 08:35 amoxicillin AdvReac Intermediate Nausea Verified 02/15/23 08:35 General Stated Complaint: Nausea/Vomit/Diar ADRIANA: 3 Review of Systems Constitutional Constitutional: Denies fever(s) Gastrointestinal Gastrointestinal: Denies abdominal pain and Reports nausea [facility] All Active Problems (Updated 02/20/23 @ 08:23 by Lester Bundy MD) Nausea (Acute) Cholelithiasis (Acute ~02/13/23) Biliary colic (Acute) Cholelithiases (Acute) Chronic cervical radiculopathy (Acute) Arm pain, left (Acute) 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 (Acute) Chest pain (Acute) Gastroesophageal reflux disease (Chronic) Anxiety (Chronic) Acute wrist pain (Acute) Dental infection (Acute) Post-operative infection (Acute) Dental infection (Acute) Inflammatory arthritis (Acute) Costochondritis (Acute 12/13/22) [facility] ED Cellulitis (Acute) Severe anxiety with panic (Chronic) Family history of coronary arteriosclerosis (Chronic) Father of DE at 50, mother had DE at 42 Elevated parathyroid hormone (Acute) Suicidal ideation (Acute) Depression (Chronic) Hypocalcemia (Chronic) Hypomagnesemia (Chronic) Depression (Chronic) Primary hyperparathyroidism (Chronic) Chronic constipation (Chronic) Multiple endocrine neoplasia type I (Chronic) Iatrogenic hypocalcemia (Acute) Abdominal pain (Acute) Common bile duct dilatation (Acute) Intrahepatic bile duct dilation (Acute) Abnormal CT scan, kidney (Acute) Sphincter of Oddi dysfunction (Chronic) Therapeutic opioid induced constipation (Acute) Pulmonary nodule 1 cm or greater in diameter (Chronic) Neck pain on left side (Acute) with shoulder, upper back pain.. torticollis, radiating into left hip/leg History of electrolyte imbalance (Acute) Complex medical condition (Chronic) Serious electrolyte imbalances, with gynecomastia, possible MEN Dx, CKD and anemia with baseline anxiety and Hx PTSD. CKD (chronic kidney disease) stage 2, GFR 60-89 ml/min (Acute) GFR 64-65, with Hx FLORESITA and GFR < 45 Gynecomastia, male (Acute) b/l, per CT (Jul 2022).. Possible 2' Methadone, Clnzpm (?). Surg eval (+)/No further action. 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 Adopted: No Caregiver/Support person: No Foster care: No Household members: none Housing: house Number of Children: 0 Communication Needs: None Education Level: high school Do you need help understanding health information?: Never 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 and animals: Yes (Ally) Pets and animals: dog(s) Sexually active: No Do you think of yourself as: straight/heterosexual Current gender identity: male What is your relationship status?: How often do you talk on the phone with friends or family?: twice per week How often do you get together with friends or relatives?: never Do you belong to any clubs or organized social groups?: no Panel score (0-1 are the most socially isolated patients): 0 What type of physical activity do you participate in: walking Duration: 15-30 minutes/day Frequency: 5-6 times per week Maryam/Orthodox: Evangelical Special maryam needs: No Seatbelt use: always Helmet use: Yes Helmet use: always Drive 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 driver medic: No Do you feel safe at home: Yes Do you feel safe in your relationship?: Yes Additional Social history: on methadone Exam Const General: no acute distress HENMT Mouth: moist mucous membranes Eyes Conjunctivae: normal conjunctivae Sclera: normal sclerae Resp Auscultation: clear to auscultation bilaterally, no rales, no rhonchi and no wheezes Cardio Rate: regular rate and not tachycardic Rhythm: regular rhythm GI Palpation: soft, not firm, no guarding, no masses, not rigid and nontender Neuro General: patient alert, patient awake and tone normal Course Vital Signs Vital signs: Vital Signs Temperature 37.3 C 02/20/23 08:05 Pulse 112 H 02/20/23 08:05 Respiratory Rate 18 02/20/23 08:05 Blood Pressure 112/70 02/20/23 08:05 Pulse Oximetry 96 02/20/23 08:05 Temperature 37.3 C 02/20/23 08:05 Temperature Source Temporal Artery Scan 02/20/23 08:05 Pulse 112 H 02/20/23 08:05 Respiratory Rate 18 02/20/23 08:05 Blood Pressure 112/70 02/20/23 08:05 Blood Pressure Position Sitting 02/20/23 08:05 Pulse Oximetry 96 02/20/23 08:05 Oxygen Delivery Method Room Air 02/20/23 08:05 Oxygen Flow Rate 0 02/20/23 08:05
--- NOTE | 2023-02-20 08:18 | NUR.NOTE ---
Nursing Note: Patient eloped
== END 2023-02-20 08:18 | disposition left against medical advice (07) ==
PROVIDERS: Emergency Provider Student in an Organized Health Care Education/Training Program; PCP Family Medicine
DX: Z53.21 Procedure and treatment not carried out due to patient leaving prior to being seen by health care provider (principal)

== ENCOUNTER → 2023-02-21 01:14 | Outpatient (CLI) | payer MEDICAID, SELFPAY ==
--- NOTE | 2023-02-21 07:00 | DI.CT_ITS ---
Exam(s) CT UPPER EXTREMITY RT WO EXAM: CT UPPER EXTREMITY RT WO CLINICAL HISTORY: ACUTE WRIST PAIN, SCAPHOID NONUNION,M25.539. TECHNIQUE: Imaging Protocol: Axial computed tomography images with coronal and sagittal reformatted images were created and reviewed. COMPARISON: CR,XR XR WRIST RT COMPLETE from 01/26/2023 FINDINGS: Bones: There is a nonunion of the fracture through the midpole of the scaphoid. The opposing surfac es are well corticated. Secondary degenerative changes are seen with subchondral cysts and sclerosis . There are 2 well corticated osseous densities on the dorsum of the wrist at the scapholunate regio n likely reflecting old chronic injury. No acute fracture is identified. There is a well corticated density at the tip of the ulnar styloid process which appears old. No cellulitic or osteomyelitic c hanges are identified. There is dorsal tilt of the lunate. No lytic or sclerotic lesions are identi fied. Soft Tissues: Normal. IMPRESSION: 1. Nonunion of the scaphoid fracture. 2. Secondary degenerative changes have developed at the scaphoid fracture. 3. No acute fracture or dislocation. RADIATION DOSE DELIVERED: 160.79mGy.cm Total DLP 160.79mGy.cm Total DLP DATA REPOSITORY: All CT scans at this facility are submitted to the National Radiology Data Registry (NRDR) Dose Index Registry (DIR) with the [employer] (A[employer]). RADIATION OPTIMIZATION: All CT scans at this facility use at least one of these dose optimization te chniques: automated exposure control; mA and/or kV adjustment per patient size (includes targeted exa ms where dose is matched to clinical indication); or iterative reconstruction.
== END ==
PROVIDERS: PCP Family Medicine; Visit Provider Student in an Organized Health Care Education/Training Program
DX: S62.021K Displaced fracture of middle third of navicular [scaphoid] bone of right wrist, subsequent encounter for fracture with nonunion (principal); S63.094D Other dislocation of right wrist and hand, subsequent encounter; X58.XXXD Exposure to other specified factors, subsequent encounter
CPT/HCPCS: 73200

== ENCOUNTER → 2023-02-22 14:18 | Outpatient (CLI) | payer MEDICAID, SELFPAY ==
--- NOTE | 2023-02-22 | DI.RAD_ITS ---
Exam(s) XR FOOT RT COMPLETE EXAM: XR FOOT RT COMPLETE CLINICAL HISTORY: PAIN IN RIGHT FOOT. TECHNIQUE: 2D digital imaging was performed. COMPARISON: No exams were available for comparison FINDINGS: 3 views There is some soft tissue swelling over the dorsal aspect of the metatarsals. There is no evidence o f fracture or diastasis of the Lisfranc joint. Bone density normal. No osseous lesions nor erosions . No degenerative changes. IMPRESSION: No acute osseous findings. DATA REPOSITORY: RADIATION DOSE DELIVERED:
--- NOTE | 2023-02-22 15:13 | DI.VRAD_ITS ---
PROCEDURE INFORMATION: Exam: XR Right Foot Exam date and time: 02/22/2023 3:02 PM Age: 27 years old Clinical indication: Patient HX: Pain in right foot TECHNIQUE: Imaging protocol: Radiologic exam of the right foot. Views: 3 or more views. COMPARISON: CR XR ANKLE RT COMPLETE 12/18/2022 6:32 AM FINDINGS: Bones/joints: Normal. Soft tissues: Normal. IMPRESSION: No acute findings. Dictated and Authenticated by: Kameron Granger MD. Ordering:ELENA WALTON MD
== END ==
PROVIDERS: PCP Family Medicine; Visit Provider Nurse Practitioner Family
DX: M79.671 Pain in right foot (principal)
CPT/HCPCS: 73630

== ENCOUNTER → 2023-02-24 00:42 | Outpatient (CLI) | payer MEDICAID, SELFPAY ==
--- NOTE | 2023-02-24 | DI.US_ITS ---
Exam(s) US BREAST LT COMPLETE US BREAST RT COMPLETE MG MAMMO DIAGNOSTIC BI EXAM: MG MAMMO DIAGNOSTIC BI BILATERAL COMPLETE BREAST ULTRASOUND CLINICAL HISTORY: Mastodynia, LT breast,n64.4. TECHNIQUE: Bilateral CC and MLO mammographic images were obtained with 3D tomosynthesis technique an d utilizing computer aided detection (CAD). Bilateral breast ultrasound was performed including all 4 quadrants, the retroareolar regions, and paula th axillary regions. This male patient has left greater than right retroareolar region breast pain. Significant family hi story. Apparently both mother and father diagnosed with breast cancer. COMPARISON: None FINDINGS: DIAGNOSTIC BILATERAL MAMMOGRAM: There is bilateral and relatively symmetrical gynecomastia in the retroareolar regions with typical f lame shaped densities extending from the nipple L towards the upper outer quadrants. Otherwise, there are no spiculated masses nor malignant-appearing microcalcification groups in either breast. Benign-appearing lymph nodes left axillary tail noted. There is also a benign appearing no dule in right breast lateral of center which has appearance benign intramammary lymph node. No significant architectural distortion or skin thickening-traction. BILATERAL COMPLETE BREAST ULTRASOUND: No evidence of solid or significant cystic lesions in all 4 quadrants of both breasts. Mild gynecoma stia noted bilaterally. No independent nodules evident. Scanning of both axillary regions negative for adenopathy. IMPRESSION: Findings are consistent with bilateral and relatively symmetrical gynecomastia. Benign intramammary lymph nodes also noted. Appropriate follow-up is repeat mammogram in 6 months. There is a very strong family history here. Apparently both mother and father have been diagnosed with breast cancer.. The patient was informed of the findings and follow-up recommendations by myself prior to leaving the department today. BI-RADS Category 3 - 6 month - Probably Benign Finding: Recommend follow-up mammography in 6 months Breast Density - Category B - Scattered areas of fibroglandular density Breast density Category C or D implies that the patient has dense breast tissue. Dense breast tissue can make it harder to find cancer on a mammogram. Dense breast tissue is also associated with an incr eased risk of breast cancer. This information about the result of the mammogram report was provided to the patient to raise their awareness. Use this report when you speak with the patient about their risks for breast cancer, which includes their family history. At that time, you may recommend additional screening tests (Ultrasoun d or MRI) as these tests may add significant information. A negative radiographic report should not delay biopsy if a dominant or clinically suspicious mass is present. Up to ten percent of cancers are not identified on mammography. A negative report may reinforce clinical impression. Adenosis and dense breasts may obscure an underlying neoplasm. False positive reports average 6 to 10%. Patient will receive a letter notifying them of these results.
== END ==
PROVIDERS: PCP Family Medicine; Visit Provider Family Medicine
DX: N64.4 Mastodynia (principal); Z12.31 Encounter for screening mammogram for malignant neoplasm of breast
CPT/HCPCS: 76642; 77062; 77066; G0279

== ENCOUNTER 2023-02-24 11:22 | Outpatient (CLI) | payer MEDICAID, SELFPAY ==
--- NOTE | 2023-02-24 11:15 | RT.EKG_ITS ---
APPROVED REPORT Exam: Resting ECG Reason for Exam: Chest discomfort Patient Location: O HR:76 bpm ECG Measurements Heart Rate 76 AXIS WI 175 P 56 QRSd 97 QRS 71 QT 394 T 39 QTc 444 Conclusion Sinus rhythm...normal P axis, V-rate 50- 99 Normal Electrocardiogram
== END 2023-02-24 11:23 | disposition home or self-care (01) ==
LOC: DI.CM 11:22
PROVIDERS: PCP Family Medicine; Visit Provider Physician Assistant
DX: R07.89 Other chest pain (principal)
CPT/HCPCS: 93010

== ENCOUNTER 2023-02-24 19:16 | Emergency (ER) | payer MEDICAID, SELFPAY ==
[2023-02-24 19:20] VITALS: BP 135/82; PULSE 102; RESP 18; TEMP 36.8; O2SAT 97
[2023-02-24 19:50] VITALS: O2SAT 97
[2023-02-24 20:00] VITALS: O2SAT 96
--- NOTE | 2023-02-24 20:00 | DI.RAD_ITS ---
Exam(s) XR CHEST 2V PA LATERAL EXAM: XR CHEST 2V PA LATERAL CLINICAL HISTORY: right chest wall pain TECHNIQUE: 2D digital imaging was performed. COMPARISON: CR XR CHEST 2V PA LATERAL from 01/22/2023 FINDINGS: HEART: Normal size. Aorta: Not dilated. PULMONARY VASCULATURE: Normal. LUNGS: Clear. PLEURAL SPACE: No pleural effusion or pneumothorax. BONE:Unremarkable for age. IMPRESSION: No acute abnormality. DATA REPOSITORY: RADIATION DOSE DELIVERED:
--- NOTE | 2023-02-24 20:00 | DI.RAD_ITS ---
Exam(s) XR SHOULDER RT COMPLETE 2+V EXAM: XR SHOULDER RT COMPLETE 2+V CLINICAL HISTORY: right shoulder pain. TECHNIQUE: 2D digital imaging was performed. Five views. COMPARISON: CR,XR XR SHOULDER RT COMPLETE 2+V from 01/26/2023 FINDINGS: BONES: No acute fracture is present. No bony destructive lesion is seen. JOINTS: No dislocation present. SOFT TISSUE: Surgical clips on right side of lower neck. IMPRESSION: Unremarkable radiographs of the right shoulder. DATA REPOSITORY: RADIATION DOSE DELIVERED:
--- NOTE | 2023-02-24 20:00 | DI.RAD_ITS ---
Exam(s) XR FOOT RT COMPLETE EXAM: XR FOOT RT COMPLETE CLINICAL HISTORY: right foot pain. TECHNIQUE: 2D digital imaging was performed. Three views. COMPARISON: CR,XR XR FOOT RT COMPLETE from 02/22/2023 FINDINGS: BONES: No acute fracture is present. No bony destructive lesion is seen. JOINTS: No dislocation present. SOFT TISSUE: Swelling over dorsum of metatarsal region. IMPRESSION: Tissue swelling. DATA REPOSITORY: RADIATION DOSE DELIVERED:
[2023-02-24 20:01] VITALS: BP 107/64; PULSE 76; O2SAT 96
[2023-02-24 20:10] VITALS: O2SAT 97
--- NOTE | 2023-02-24 20:48 | DI.VRAD_ITS ---
PROCEDURE INFORMATION: Exam: XR Chest Exam date and time: 02/24/2023 8:16 PM Age: 27 years old Clinical indication: Chest wall pain and right-sided; Patient HX: R chest wall pain TECHNIQUE: Imaging protocol: Radiologic exam of the chest. Views: 2 views. COMPARISON: CR XR CHEST 2V PA LATERAL 01/22/2023 2:36 PM FINDINGS: Lungs: Lungs are adequately inflated and symmetric. No focal consolidation or pulmonary edema. Pleural spaces: No pleural effusion. No pneumothorax. Heart/Mediastinum: Cardiomediastinal contours within normal limits. Bones/joints: No discrete or displaced fracture. IMPRESSION: No acute findings. Dictated and Authenticated by: Hayden Long MD. Ordering:JOYCE Arvizu MD
--- NOTE | 2023-02-24 20:50 | DI.VRAD_ITS ---
PROCEDURE INFORMATION: Exam: XR Right Shoulder Exam date and time: 02/24/2023 8:18 PM Age: 27 years old Clinical indication: Right; Patient HX: R shoulder pain TECHNIQUE: Imaging protocol: Radiologic exam of the right shoulder. Views: 2 or more views. COMPARISON: CR XR SHOULDER RT COMPLETE 2+V 01/26/2023 10:22 AM FINDINGS: Bones/joints: No suspicious osseous lytic or blastic lesion. No acute fracture or dislocation. Acromioclavicular and coracoclavicular intervals within normal limits. Soft tissues: Multiple surgical clips present within the right neck soft tissues. IMPRESSION: No acute fracture or dislocation. Dictated and Authenticated by: Hayden Long MD. Ordering:JOYCE Arvizu MD
--- NOTE | 2023-02-24 20:52 | DI.VRAD_ITS ---
PROCEDURE INFORMATION: Exam: XR Right Foot Exam date and time: 02/24/2023 8:21 PM Age: 27 years old Clinical indication: Pain; Right; Patient HX: Dropped motor on foot 3 days ago TECHNIQUE: Imaging protocol: Radiologic exam of the right foot. Views: 3 or more views. COMPARISON: CR XR FOOT RT COMPLETE 02/22/2023 3:02 PM FINDINGS: Bones/joints: No suspicious osseous lytic or blastic lesion. No acute fracture or dislocation. Soft tissues: Forefoot soft tissue edema. IMPRESSION: No acute fracture or dislocation. Dictated and Authenticated by: Hayden Long MD. Ordering:JOYCE Arvizu MD
--- NOTE | 2023-02-24 22:07 | ED.GENADUL_ITS ---
Discharge Plan Disposition Patient Disposition: Home Discharge Details Clinical Impression: Contusion of foot, Contusion of right chest wall Primary Care Provider: Brendon Vivar ED Provider: Luh Tsai Home Meds and New Rx's Prescriptions: Continued clonazepam 1 mg tablet 1 mg PO BID Qty: 56 1RF methadone 10 mg/5 mL solution 110 mg PO QAM magnesium gluconate 27 mg magnesium (500 mg) tablet 27 mg PO BID Qty: 60 3RF cyclobenzaprine 10 mg tablet 10 mg PO TID PRN (Reason: muscle spasm) Qty: 30 3RF calcitriol 0.5 mcg capsule 0.5 mcg PO BID Qty: 360 3RF Hold Instructions: Resume on 06/15/22. calcium carbonate [Tums] 200 mg calcium (500 mg) tablet,chewable 2,000 mg PO BID gabapentin 300 mg capsule 300 mg PO BID diclofenac sodium 1 % gel 4 g topical QID Qty: 100 0RF Rx Instructions: apply to single knee, ankle, foot; for foot includes sole/toes/top of foot pantoprazole [Protonix] [address] for susp in packet 40 mg PO DAILY Qty: 30 0RF Discharge Instructions Instructions: Contusion in Adults (ED), Foot Contusion (ED) Additional Instructions: Your x-rays do not show evidence of fracture, please take ibuprofen and Tylenol as needed for pain Return earlier should you have new or worsening, or persistent complaints Referrals: Brendon Vivar DO [Primary Care Provider] - Discharge Data Discharge Date/Time-TO BE ENTERED AT DEPARTURE: 02/24/23 21:03 Medical Decision Making 27-year-old male known to this facility presents with report of injury to right side, chest x-ray was ordered in addition to right foot and right shoulder, right shoulder, right chest, and right foot did not show evidence of acute abnormality per radiology interpretation and my review Encouraged ibuprofen and muscle relaxant Offered work note, patient declined Discharged home in stable condition with stable vitals Return precautions reviewed and patient expressed understanding HPI General Date/Time Provider Initiated Documentation: 02/24/23 20:03 . HPI Narrative: This 27-year-old male presents with reports of injury to right side of chest and right foot. He states he was moving a engine and it accidentally fell onto his chest and right foot. This is at work just prior to arrival. Denies any a dditional injuries. Was wearing steel toed boots. Has pain with palpation on his chest. Denies any shortness of breath per patient. Denies any abdominal pain or additional injuries. Denies history of coagulopathy. Related Data Home Medications Medication Instructions Recorded Confirmed methadone 10 mg/5 mL oral solution 110 mg PO QAM 11/16/21 02/24/23 calcitriol 0.5 mcg capsule 0.5 mcg PO BID #360 caps 06/14/22 02/24/23 magnesium gluconate 27 mg 27 mg PO BID #60 tabs 11/08/22 02/24/23 magnesium (500 mg) tablet cyclobenzaprine 10 mg tablet 10 mg PO TID PRN muscle spasm #30 12/03/22 02/24/23 tabs diclofenac sodium 1 % topical gel 4 g topical QID #100 grams 12/07/22 02/24/23 calcium carbonate 200 mg calcium 2,000 mg PO BID 02/02/23 02/24/23 (500 mg) chewable tablet (Tums) gabapentin 300 mg capsule 300 mg PO BID 02/02/23 02/24/23 pantoprazole 40 mg granules 40 mg PO DAILY #30 ea 02/13/23 02/24/23 delayed-release for susp in packet (Protonix) clonazepam 1 mg tablet 1 mg PO BID #56 tabs 02/24/23 02/24/23 Previous Rx's Medication Instructions Recorded calcitriol 0.5 mcg capsule 0.5 mcg PO BID #360 caps 06/14/22 magnesium gluconate 27 mg 27 mg PO BID #60 tabs 11/08/22 magnesium (500 mg) tablet cyclobenzaprine 10 mg tablet 10 mg PO TID PRN muscle spasm #30 12/03/22 tabs diclofenac sodium 1 % topical gel 4 g topical QID #100 grams 12/07/22 pantoprazole 40 mg granules 40 mg PO DAILY #30 ea 02/13/23 delayed-release for susp in packet (Protonix) clonazepam 1 mg tablet 1 mg PO BID #56 tabs 02/24/23 Allergies Allergy/AdvReac Type Severity Reaction Status Date / Time codeine Allergy Intermediate Verified 02/24/23 11:18 Penicillins Allergy Skin Rash Verified 02/24/23 11:18 amoxicillin AdvReac Intermediate Nausea Verified 02/24/23 11:18 General Stated Complaint: Chest/Rib ADRIANA: 3 PFSH All Active Problems (Updated 02/24/23 @ 20:50 by ANDREW Arriaga) Contusion of foot (Acute) Contusion of right chest wall (Acute) Nausea (Acute) Cholelithiasis (Acute ~02/13/23) Biliary colic (Acute) Cholelithiases (Acute) Chronic cervical radiculopathy (Acute) Arm pain, left (Acute) 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 (Acute) Acute wrist pain (Acute) Dental infection (Acute) Post-operative infection (Acute) Dental infection (Acute) Inflammatory arthritis (Acute) Costochondritis (Acute 12/13/22) [facility] Cellulitis (Acute) Severe anxiety with panic (Chronic) Family history of coronary arteriosclerosis (Chronic) Father of [place] at 50, mother had [place] at 42 Elevated parathyroid hormone (Acute) Suicidal ideation (Acute) Depression (Chronic) Hypocalcemia (Chronic) Hypomagnesemia (Chronic) Depression (Chronic) Primary hyperparathyroidism (Chronic) Chronic constipation (Chronic) Multiple endocrine neoplasia type I (Chronic) Iatrogenic hypocalcemia (Acute) Abdominal pain (Acute) Common bile duct dilatation (Acute) Intrahepatic bile duct dilation (Acute) Abnormal CT scan, kidney (Acute) Sphincter of Oddi dysfunction (Chronic) Therapeutic opioid induced constipation (Acute) Pulmonary nodule 1 cm or greater in diameter (Chronic) Neck pain on left side (Acute) with shoulder, upper back pain.. torticollis, radiating into left hip/leg History of electrolyte imbalance (Acute) Complex medical condition (Chronic) Serious electrolyte imbalances, with gynecomastia, possible MEN Dx, CKD and anemia with baseline anxiety and Hx PTSD. CKD (chronic kidney disease) stage 2, GFR 60-89 ml/min (Acute) GFR 64-65, with Hx FLORESITA and GFR < 45 Gynecomastia, male (Acute) b/l, per CT (Jul 2022).. Possible 2' Methadone, Clnzpm (?). Surg eval (+)/No further action. 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 Adopted: No Caregiver/Support person: No Foster care: No Household members: none Housing: house Number of Children: 0 Communication Needs: None Education Level: high school Do you need help understanding health information?: Never 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 and animals: Yes (Ally) Pets and animals: dog(s) Sexually active: No Do you think of yourself as: straight/heterosexual Current gender identity: male What is your relationship status?: How often do you talk on the phone with friends or family?: twice per week How often do you get together with friends or relatives?: never Do you belong to any clubs or organized social groups?: no Panel score (0-1 are the most socially isolated patients): 0 What type of physical activity do you participate in: walking Duration: 15-30 minutes/day Frequency: 5-6 times per week Maryam/Rastafarian: Sikh Special maryam needs: No Seatbelt use: always Helmet use: Yes Helmet use: always Drive 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 personal 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 Course Vital Signs Vital signs: Vital Signs Temperature 36.8 C 02/24/23 19:20 Pulse 102 H 02/24/23 19:20 Respiratory Rate 18 02/24/23 19:20 Blood Pressure 135/82 02/24/23 19:20 Pulse Oximetry 97 02/24/23 19:20 Temperature 36.8 C 02/24/23 19:20 Temperature Source Skin 02/24/23 19:20 Pulse 76 02/24/23 20:01 Respiratory Rate 18 02/24/23 19:20 Respiratory Effort Normal 02/24/23 20:15 Respiratory Depth Normal 02/24/23 20:15 Respiratory Pattern Normal 02/24/23 20:15 Blood Pressure 107/64 02/24/23 20:01 Blood Pressure Mean 76 02/24/23 20:01 Blood Pressure Position Sitting 02/24/23 19:20 Pulse Oximetry 97 02/24/23 20:10 Oxygen Delivery Method Room Air 02/24/23 19:20 Oxygen Flow Rate 0 02/24/23 19:20 Pain Level 4 02/24/23 19:20
== END 2023-02-24 21:03 | disposition home or self-care (01) ==
PROVIDERS: Emergency Provider Physician Assistant; PCP Family Medicine
DX: S90.31XA Contusion of right foot, initial encounter (principal); S20.211A Contusion of right front wall of thorax, initial encounter; X58.XXXA Exposure to other specified factors, initial encounter
CPT/HCPCS: 99284; 71046; 73030; 73630; 99283

== ENCOUNTER 2023-03-07 13:20 | Emergency (ER) | payer OTHER, SELFPAY ==
[2023-03-07 13:42] VITALS: BP 113/78; PULSE 112; RESP 20; O2SAT 97
== END 2023-03-07 14:19 | disposition left against medical advice (07) ==
LOC: ER 13:31
PROVIDERS: PCP Family Medicine
DX: Z53.21 Procedure and treatment not carried out due to patient leaving prior to being seen by health care provider (principal)

== ENCOUNTER 2023-03-07 17:54 | Emergency (ER) | payer OTHER, SELFPAY ==
[2023-03-07 18:07] VITALS: BP 123/98; PULSE 95; RESP 20; TEMP 36.6; O2SAT 98
[2023-03-07 19:31] LABS: Abs Immature Grans 0.03 10^3/uL (0.0-0.06); Absolute Basophil Count 0.03 10^3/uL (0.0-0.2); Absolute Eosinophil Count 0.16 10^3/uL (0.0-0.7); Absolute Lymphocyte Count 2.23 10^3/uL (1.2-3.4); Absolute Monocyte Count 0.94 10^3/uL (0.1-0.8); Absolute Neutrophil Count 6.74 10^3/uL (1.2-6.7); Basophils % 0.3; Eosinophils % 1.6; HCT 35.7 % (40.0-50.0); HGB 12.4 g/dL (13.5-17.5); Immature Grans % 0.3; MCH 31.2 pg (27.0-33.0); MCHC 34.7 % (32.0-36.0); MCV 90 fL (80-95); MPV 10.6 fL (8.0-11.0); Monocytes % 9.3; Neutrophils % 66.5; Platelet Count 309 10^3/uL (130-400); RBC 3.97 10^6/uL (4.36-5.78); RDW 11.9 % (11.8-14.1); RDW-SD 39.1 fL; WBC 10.13 10^3/uL (4.4-10.8)
[2023-03-07 19:56] LABS: ALT 37 U/L (16-63); AST 24 U/L (15-37); Albumin 3.4 g/dL (3.4-5.0); Alkaline Phosphatase 109 U/L (46-116); Anion Gap 7.9 mmol/L (3-11); BUN 15 mg/dL (7-18); Bilirubin, Total 0.2 mg/dL (0.2-1.0); CO2 32.1 mmol/L (21.0-32.0); CREATININE 1.3 mg/dL (0.70-1.30); Calcium 8.8 mg/dL (8.5-10.1); Chloride 100 mmol/L (98-107); Estimated GFR 76.26 (mL/min/1.73m2); Glucose 109 mg/dL (74-106); Potassium 4.2 mmol/L (3.5-5.1); Sodium 140 mmol/L (136-145); Total Protein 7.4 g/dL (6.4-8.2)
--- NOTE | 2023-03-07 20:27 | ED.GENADUL_ITS ---
Discharge Plan Disposition Patient Disposition: Home Condition: Stable Discharge Details Clinical Impression: Abdominal pain Primary Care Provider: Brendon Vivar ED Provider: Anna Ocampo Home Meds and New Rx's Prescriptions: Continued clonazepam 1 mg tablet 1 mg PO BID Qty: 56 1RF methadone 10 mg/5 mL solution 110 mg PO QAM magnesium gluconate 27 mg magnesium (500 mg) tablet 27 mg PO BID Qty: 60 3RF cyclobenzaprine 10 mg tablet 10 mg PO TID PRN (Reason: muscle spasm) Qty: 30 3RF calcitriol 0.5 mcg capsule 0.5 mcg PO BID Qty: 360 3RF Hold Instructions: Resume on 06/15/22. calcium carbonate [Tums] 200 mg calcium (500 mg) tablet,chewable 2,000 mg PO BID gabapentin 300 mg capsule 300 mg PO BID diclofenac sodium 1 % gel 4 g topical QID Qty: 100 0RF Rx Instructions: apply to single knee, ankle, foot; for foot includes sole/toes/top of foot pantoprazole [Protonix] [address] for susp in packet 40 mg PO DAILY Qty: 30 0RF Discharge Instructions Instructions: Abdominal Pain (ED) Additional Instructions: Clear liquids advance as tolerated Keep your scheduled outpatient appointments Referrals: Brendon Vivar DO [Primary Care Provider] - Medical Decision Making Seven 27-year-old male well-known to the emergency department followed by general surgery at [facility] awaiting an elective cholecystectomy presents for evaluation of abdominal pain. Has been able to take oral intake. We will just check CMP CBC his abdominal exam is benign. I do not suspect acute cholecystitis we will continue to monitor him and reassess his abdomen while labs are pending Labs have been reviewed and are unremarkable. His abdominal exam remains benign He is stable for discharge to home and will follow-up outpatient with surgery as previously planned Medical Records Medical records reviewed: Yes I reviewed the patient's medical records. Lab Data Lab results reviewed: Yes I reviewed the patient's lab results. Lab results narrative: Laboratory Results - last 24 hr 03/07/23 03/07/23 19:15 19:15 WBC 10.13 RBC 3.97 L Hgb 12.4 L Hct 35.7 L MCV 90 MCH 31.2 MCHC 34.7 RDW 11.9 Plt Count 309 MPV 10.6 Immature Gran % 0.3 Neutrophils % 66.5 Lymphocytes % 22.0 Monocytes % 9.3 Eosinophils % 1.6 Basophils % 0.3 Nucleated RBC % 0.0 Absolute Neutrophils 6.74 H Absolute Lymphocytes 2.23 Absolute Monocytes 0.94 H Absolute Eosinophils 0.16 Absolute Basophils 0.03 Sodium 140 Potassium 4.2 Chloride 100 Carbon Dioxide 32.1 H Anion Gap 7.9 BUN 15 Creatinine 1.3 Est GFR (CKD-EPI 2020) 76.26 Glucose 109 H Calcium 8.8 Total Bilirubin 0.2 AST 24 ALT 37 Alkaline Phosphatase 109 Total Protein 7.4 Albumin 3.4 HPI General Mode of arrival: ambulatory . Date/Time Provider Initiated Documentation: 03/07/23 18:20 . Limitations to Documentation: no limitations . Information obtained by: patient . HPI Narrative: Patient presents for complaints of abdominal pain which have been ongoing. He has been able to take clear liquids. He is reports he was supposed to have his gallbladder out last week but states it was delayed till April due to a possible COVID exposure. He has been asymptomatic otherwise with no shortness of breath chest pain cough fever. Again he is tolerating fluids well. He states has been sticking to his low-fat diet. On evaluation he appears at his baseline no acute distress vital signs are stable abdominal exam benign reporting tenderness on the right he states his bowels and bladder have been functioning Related Data Home Medications Medication Instructions Recorded Confirmed methadone 10 mg/5 mL oral solution 110 mg PO QAM 11/16/21 02/24/23 calcitriol 0.5 mcg capsule 0.5 mcg PO BID #360 caps 06/14/22 02/24/23 magnesium gluconate 27 mg 27 mg PO BID #60 tabs 11/08/22 02/24/23 magnesium (500 mg) tablet cyclobenzaprine 10 mg tablet 10 mg PO TID PRN muscle spasm #30 12/03/22 02/24/23 tabs diclofenac sodium 1 % topical gel 4 g topical QID #100 grams 12/07/22 02/24/23 calcium carbonate 200 mg calcium 2,000 mg PO BID 02/02/23 02/24/23 (500 mg) chewable tablet (Tums) gabapentin 300 mg capsule 300 mg PO BID 02/02/23 02/24/23 pantoprazole 40 mg granules 40 mg PO DAILY #30 ea 02/13/23 02/24/23 delayed-release for susp in packet (Protonix) clonazepam 1 mg tablet 1 mg PO BID #56 tabs 02/24/23 02/24/23 Previous Rx's Medication Instructions Recorded calcitriol 0.5 mcg capsule 0.5 mcg PO BID #360 caps 06/14/22 magnesium gluconate 27 mg 27 mg PO BID #60 tabs 11/08/22 magnesium (500 mg) tablet cyclobenzaprine 10 mg tablet 10 mg PO TID PRN muscle spasm #30 12/03/22 tabs diclofenac sodium 1 % topical gel 4 g topical QID #100 grams 12/07/22 pantoprazole 40 mg granules 40 mg PO DAILY #30 ea 02/13/23 delayed-release for susp in packet (Protonix) clonazepam 1 mg tablet 1 mg PO BID #56 tabs 02/24/23 Allergies Allergy/AdvReac Type Severity Reaction Status Date / Time codeine Allergy Intermediate Verified 03/07/23 18:09 Penicillins Allergy Skin Rash Verified 03/07/23 18:09 amoxicillin AdvReac Intermediate Nausea Verified 03/07/23 18:09 General Stated Complaint: Abd Prob ADRIANA: 3 Review of Systems All systems reviewed & are unremarkable except as noted in HPI and below PFSH All Active Problems (Updated 03/07/23 @ 20:31 by Anna Ocampo NP) Abdominal pain (Acute) Contusion of foot (Acute) Contusion of right chest wall (Acute) Nausea (Acute) Cholelithiasis (Acute ~02/13/23) Biliary colic (Acute) Cholelithiases (Acute) Chronic cervical radiculopathy (Acute) Arm pain, left (Acute) 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 (Acute) Post-operative infection (Acute) Dental infection (Acute) Inflammatory arthritis (Acute) Costochondritis (Acute 12/13/22) [facility] Cellulitis (Acute) Severe anxiety with panic (Chronic) Family history of coronary arteriosclerosis (Chronic) Father of [place] at 50, mother had [place] at 42 Elevated parathyroid hormone (Acute) Suicidal ideation (Acute) Depression (Chronic) Hypocalcemia (Chronic) Hypomagnesemia (Chronic) Depression (Chronic) Primary hyperparathyroidism (Chronic) Chronic constipation (Chronic) Multiple endocrine neoplasia type I (Chronic) Iatrogenic hypocalcemia (Acute) Abdominal pain (Acute) Common bile duct dilatation (Acute) Intrahepatic bile duct dilation (Acute) Abnormal CT scan, kidney (Acute) Sphincter of Oddi dysfunction (Chronic) Therapeutic opioid induced constipation (Acute) Pulmonary nodule 1 cm or greater in diameter (Chronic) Neck pain on left side (Acute) with shoulder, upper back pain.. torticollis, radiating into left hip/leg History of electrolyte imbalance (Acute) Complex medical condition (Chronic) Serious electrolyte imbalances, with gynecomastia, possible MEN Dx, CKD and anemia with baseline anxiety and Hx PTSD. CKD (chronic kidney disease) stage 2, GFR 60-89 ml/min (Acute) GFR 64-65, with Hx FLORESITA and GFR < 45 Gynecomastia, male (Acute) b/l, per CT (Jul 2022).. Possible 2' Methadone, Clnzpm (?). Surg eval (+)/No further action. 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 Adopted: No Caregiver/Support person: No Foster care: No Household members: none Housing: house Number of Children: 0 Communication Needs: None Education Level: high school Do you need help understanding health information?: Never 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 and animals: Yes (Ally) Pets and animals: dog(s) Sexually active: No Do you think of yourself as: straight/heterosexual Current gender identity: male What is your relationship status?: How often do you talk on the phone with friends or family?: twice per week How often do you get together with friends or relatives?: never Do you belong to any clubs or organized social groups?: no Panel score (0-1 are the most socially isolated patients): 0 What type of physical activity do you participate in: walking Duration: 15-30 minutes/day Frequency: 5-6 times per week Maryam/Anabaptism: Protestant Special maryam needs: No Seatbelt use: always Helmet use: Yes Helmet use: always Drive 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 milk pickup 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 Exam Const General: no acute distress HENMT Mouth: moist mucous membranes Eyes Conjunctivae: normal conjunctivae Sclera: normal sclerae Resp Auscultation: clear to auscultation bilaterally, no rales, no rhonchi and no wheezes Cardio Rate: regular rate Rhythm: regular rhythm GI Palpation: soft, not firm, no guarding, no masses, not rigid and tender in the RUQ Neuro General: patient alert, patient awake and tone normal Course Vital Signs Vital signs: Vital Signs Temperature 36.6 C 03/07/23 18:07 Pulse 95 H 03/07/23 18:07 Respiratory Rate 20 03/07/23 18:07 Blood Pressure 123/98 H 03/07/23 18:07 Pulse Oximetry 98 03/07/23 18:07 Temperature 36.6 C 03/07/23 18:07 Temperature Source Skin 03/07/23 18:07 Pulse 95 H 03/07/23 18:07 Respiratory Rate 20 03/07/23 18:07 Blood Pressure 123/98 H 03/07/23 18:07 Blood Pressure Position Sitting 03/07/23 18:07 Pulse Oximetry 98 03/07/23 18:07 Oxygen Delivery Method Room Air 03/07/23 18:07 Oxygen Flow Rate 0 03/07/23 18:07 Pain Level 7 03/07/23 18:07 Lab/Test Results Lab/Test Results: Laboratory Tests Range/Units 03/07/23 03/07/23 19:15 19:15 WBC (4.4-10.8) 10^3/uL 10.13 RBC (4.36-5.78) 10^6/uL 3.97 L Hgb (13.5-17.5) g/dL 12.4 L Hct (40.0-50.0) % 35.7 L MCV (80-95) fL 90 MCH (27.0-33.0) pg 31.2 MCHC (32.0-36.0) % 34.7 RDW (11.8-14.1) % 11.9 Plt Count (130-400) 10^3/uL 309 MPV (8.0-11.0) fL 10.6 Immature Gran % 0.3 Neutrophils % 66.5 Lymphocytes % 22.0 Monocytes % 9.3 Eosinophils % 1.6 Basophils % 0.3 Nucleated RBC % (0.0-0.3) % 0.0 Absolute Neutrophils (1.2-6.7) 10^3/uL 6.74 H Absolute Lymphocytes (1.2-3.4) 10^3/uL 2.23 Absolute Monocytes (0.1-0.8) 10^3/uL 0.94 H Absolute Eosinophils (0.0-0.7) 10^3/uL 0.16 Absolute Basophils (0.0-0.2) 10^3/uL 0.03 Sodium (136-145) mmol/L 140 Potassium (3.5-5.1) mmol/L 4.2 Chloride (98-107) mmol/L 100 Carbon Dioxide (21.0-32.0) mmol/L 32.1 H Anion Gap (3-11) mmol/L 7.9 BUN (7-18) mg/dL 15 Creatinine (0.70-1.30) mg/dL 1.3 Est GFR (CKD-EPI 2020) (mL/min/1.73m2) 76.26 Glucose (74-106) mg/dL 109 H Calcium (8.5-10.1) mg/dL 8.8 Total Bilirubin (0.2-1.0) mg/dL 0.2 AST (15-37) U/L 24 ALT (16-63) U/L 37 Alkaline Phosphatase (46-116) U/L 109 Total Protein (6.4-8.2) g/dL 7.4 Albumin (3.4-5.0) g/dL 3.4
== END 2023-03-07 20:51 | disposition home or self-care (01) ==
PROVIDERS: Emergency Provider Nurse Practitioner Acute Care; PCP Family Medicine
DX: R10.9 Unspecified abdominal pain (principal)
CPT/HCPCS: 80053; 99282; 85025; 99283

== ENCOUNTER 2023-03-09 03:01 | Emergency (ER) | payer OTHER, SELFPAY ==
[2023-03-09 03:06] VITALS: BP 135/99; PULSE 112; RESP 16; TEMP 36.3; O2SAT 96
--- NOTE | 2023-03-09 03:22 | ED.GENADUL_ITS ---
Discharge Plan Disposition Patient Disposition: Home Condition: Good Discharge Details Clinical Impression: Viral URI Primary Care Provider: Berndon Vivar ED Provider: Richy Eagle Home Meds and New Rx's Prescriptions: No Action clonazepam 1 mg tablet 1 mg PO BID Qty: 56 1RF methadone 10 mg/5 mL solution 110 mg PO QAM magnesium gluconate 27 mg magnesium (500 mg) tablet 27 mg PO BID Qty: 60 3RF cyclobenzaprine 10 mg tablet 10 mg PO TID PRN (Reason: muscle spasm) Qty: 30 3RF calcitriol 0.5 mcg capsule 0.5 mcg PO BID Qty: 360 3RF Hold Instructions: Resume on 06/15/22. calcium carbonate [Tums] 200 mg calcium (500 mg) tablet,chewable 2,000 mg PO BID gabapentin 300 mg capsule 300 mg PO BID diclofenac sodium 1 % gel 4 g topical QID Qty: 100 0RF Rx Instructions: apply to single knee, ankle, foot; for foot includes sole/toes/top of foot pantoprazole [Protonix] [address] for susp in packet 40 mg PO DAILY Qty: 30 0RF Discharge Instructions Instructions: Upper Respiratory Infection (ED) Additional Instructions: At this time your symptoms appear consistent with a viral upper respiratory infection. Thankfully your flu and COVID test were negative. Please take Tylenol and Motrin as needed for pain. Please considering taking extra Pepto- Bismol and Tums while taking that secondary to the irritation it can cause to your stomach. If you notice any worsening of your symptoms, or any new symptoms such as vomiting, diarrhea, fever, chills, shortness of breath, chest pain, numbness, weakness, or fainting , please return immediately to the emergency department for reevaluation. Please follow up with your primary care provider as soon as possible for reassessment and reevaluation. As always, it was a pleasure participating in your medical care today. Referrals: Brendon Vivar DO [Primary Care Provider] - Medical Decision Making This is a 27-year-old male with a past medical history significant for anxiety, depression, high cholesterol, men type I, multiple electrolyte abnormalities with [place] [facility] [place], GERD who is currently on clindamycin for a dental infection and is scheduled to have an elective cholecystectomy next week presents today for chills and myalgias. Patient states that his mother has runny nose congestion and chills, and he began to have the symptoms today. Mother has not tested for flu or COVID. Patient admits to generalized achiness throughout. He did take some Tylenol and Motrin and this did not improve his symptoms. He denies any cough or fever. He denies any headache. He does admit to a runny nose starting about an hour or so ago. No other complaints at this time. No other modifying factors. M demonstrates well-appearing male, no evidence of meningeal signs, no nuchal rigidity. No evidence of otitis media. Suspect viral etiology. Patient is on clindamycin. Doubt bacterial etiology or bacteremia secondary to dental infection as this appears to be notably improving. Will give Toradol. Will monitor closely and reassess. COVID and flu are negative. Patient remained stable. Suspect viral etiology. Recommend NSAIDs rest and fluids at home. Patient shows no signs of clinical instability at this time. No hypotension, no significant tachycardia. He remains afebrile. Discussed red flags for which to return. I have extensively reviewed the treatment plan and discharge instructions with the patient. I have addressed all patient concerns at this time. The patient was made aware of what symptoms to monitor for that would warrant a return to the emergency department. Discussed the plan with the patient, they demonstrate verbal understanding and agreement with our assessment and plan at this time. The documentation in this chart was dictated using [employer] dictation software. Please excuse any dictation errors. HPI General Date/Time Provider Initiated Documentation: 03/09/23 03:06 . HPI Narrative: This is a 27-year-old male with a past medical history significant for anxiety, depression, high cholesterol, men type I, multiple electrolyte abnormalities with subsequent [place]roide[place] on 03/26/20[place] [facility] [place], PTSD, GERD who is currently on clindamycin for a dental infection and is scheduled to have an elective cholecystectomy next week presents today for chills and myalgias. Patient states that his mother has runny nose congestion and chills, and he began to have the symptoms today. Mother has not tested for flu or COVID. Patient admits to generalized achiness throughout. He did take some Tylenol and Motrin and this did not improve his symptoms. He denies any cough or fever. He denies any headache. He does admit to a runny nose starting about an hour or so ago. No other complaints at this time. No other modifying factors. Related Data Home Medications Medication Instructions Recorded Confirmed methadone 10 mg/5 mL oral solution 110 mg PO QAM 11/16/21 03/09/23 calcitriol 0.5 mcg capsule 0.5 mcg PO BID #360 caps 06/14/22 03/09/23 magnesium gluconate 27 mg 27 mg PO BID #60 tabs 11/08/22 03/09/23 magnesium (500 mg) tablet cyclobenzaprine 10 mg tablet 10 mg PO TID PRN muscle spasm #30 12/03/22 03/09/23 tabs diclofenac sodium 1 % topical gel 4 g topical QID #100 grams 12/07/22 03/09/23 calcium carbonate 200 mg calcium 2,000 mg PO BID 02/02/23 03/09/23 (500 mg) chewable tablet (Tums) gabapentin 300 mg capsule 300 mg PO BID 02/02/23 03/09/23 pantoprazole 40 mg granules 40 mg PO DAILY #30 ea 02/13/23 03/09/23 delayed-release for susp in packet (Protonix) clonazepam 1 mg tablet 1 mg PO BID #56 tabs 02/24/23 03/09/23 Previous Rx's Medication Instructions Recorded calcitriol 0.5 mcg capsule 0.5 mcg PO BID #360 caps 06/14/22 magnesium gluconate 27 mg 27 mg PO BID #60 tabs 11/08/22 magnesium (500 mg) tablet cyclobenzaprine 10 mg tablet 10 mg PO TID PRN muscle spasm #30 12/03/22 tabs diclofenac sodium 1 % topical gel 4 g topical QID #100 grams 12/07/22 pantoprazole 40 mg granules 40 mg PO DAILY #30 ea 02/13/23 delayed-release for susp in packet (Protonix) clonazepam 1 mg tablet 1 mg PO BID #56 tabs 02/24/23 Allergies Allergy/AdvReac Type Severity Reaction Status Date / Time codeine Allergy Intermediate Verified 03/09/23 03:09 Penicillins Allergy Skin Rash Verified 03/09/23 03:09 amoxicillin AdvReac Intermediate Nausea Verified 03/09/23 03:09 General Stated Complaint: GenMedical ADRIANA: 3 Review of Systems All systems reviewed & are unremarkable except as noted in HPI and below PFSH All Active Problems (Updated 03/09/23 @ 03:50 by Richy Eagle DO) Abdominal pain (Acute) Viral URI (Acute) Contusion of foot (Acute) Contusion of right chest wall (Acute) Nausea (Acute) Cholelithiasis (Acute ~02/13/23) Biliary colic (Acute) Cholelithiases (Acute) Chronic cervical radiculopathy (Acute) Arm pain, left (Acute) 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 (Acute) Post-operative infection (Acute) Dental infection (Acute) Inflammatory arthritis (Acute) Costochondritis (Acute 12/13/22) [facility] ED Cellulitis (Acute) Severe anxiety with panic (Chronic) Family history of coronary arteriosclerosis (Chronic) Father of [place] at 50, mother had [place] at 42 Elevated parathyroid hormone (Acute) Suicidal ideation (Acute) Depression (Chronic) Hypocalcemia (Chronic) Hypomagnesemia (Chronic) Depression (Chronic) Primary hyperparathyroidism (Chronic) Chronic constipation (Chronic) Multiple endocrine neoplasia type I (Chronic) Iatrogenic hypocalcemia (Acute) Abdominal pain (Acute) Common bile duct dilatation (Acute) Intrahepatic bile duct dilation (Acute) Abnormal CT scan, kidney (Acute) Sphincter of Oddi dysfunction (Chronic) Therapeutic opioid induced constipation (Acute) Pulmonary nodule 1 cm or greater in diameter (Chronic) Neck pain on left side (Acute) with shoulder, upper back pain.. torticollis, radiating into left hip/leg History of electrolyte imbalance (Acute) Complex medical condition (Chronic) Serious electrolyte imbalances, with gynecomastia, possible MEN Dx, CKD and anemia with baseline anxiety and Hx PTSD. CKD (chronic kidney disease) stage 2, GFR 60-89 ml/min (Acute) GFR 64-65, with Hx FLORESITA and GFR < 45 Gynecomastia, male (Acute) b/l, per CT (Jul 2022).. Possible 2' Methadone, Clnzpm (?). Surg eval (+)/No further action. 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 Adopted: No Caregiver/Support person: No Foster care: No Household members: none Housing: house Number of Children: 0 Communication Needs: None Education Level: high school Do you need help understanding health information?: Never 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 and animals: Yes (Ally) Pets and animals: dog(s) Sexually active: No Do you think of yourself as: straight/heterosexual Current gender identity: male What is your relationship status?: How often do you talk on the phone with friends or family?: twice per week How often do you get together with friends or relatives?: never Do you belong to any clubs or organized social groups?: no Panel score (0-1 are the most socially isolated patients): 0 What type of physical activity do you participate in: walking Duration: 15-30 minutes/day Frequency: 5-6 times per week Maryam/Orthodoxy: Episcopal Special maryam needs: No Seatbelt use: always Helmet use: Yes Helmet use: always Drive 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 3.ENT: Atraumatic external nose and ears. Moist MM. Neck: Symmetric, trachea midline, No thyromegaly. Patient demonstrates good movement of cervical neck. There is no nuchal rigidity, no nuchal tenderness. Patient is able to flex the neck without any difficulty or significant pain. Negative Kernig's and Brudzinski sign. No evidence of effusion behind the tympanic membranes. 4.CVS: +S1/S2, No murmurs or gallops. Peripheral pulses 2+ and equal in all extremities. Brisk capillary refill in all extremities. 5.RESP: Unlabored respiratory effort. Clear to auscultation bilaterally. No wheezes rales or rhonchi 6.GI: Soft, Nontender/Nondistended, No hepatosplenomegaly. No guarding or rebound. 7.MSK: Normocephalic/Atraumatic, Extremities w/o deformity or ttp No cyanosis or clubbing, Normal movement of all extremities 8.Skin: Warm, Dry. No rashes or lesions. 9.Neuro: chip frier II-XII grossly intact. Sensation grossly intact, no focal neurologic deficits. 10.Psych: (AAO) x3. Appropriate mood and affect Course Vital Signs Vital signs: Vital Signs Temperature 36.3 C L 03/09/23 03:06 Pulse 112 H 03/09/23 03:06 Respiratory Rate 16 03/09/23 03:06 Blood Pressure 135/99 H 03/09/23 03:06 Pulse Oximetry 96 03/09/23 03:06 Temperature 36.3 C L 03/09/23 03:06 Temperature Source Temporal Artery Scan 03/09/23 03:06 Pulse 112 H 03/09/23 03:06 Respiratory Rate 16 03/09/23 03:06 Respiratory Effort Normal 03/09/23 03:06 Blood Pressure 135/99 H 03/09/23 03:06 Blood Pressure Position Sitting 03/09/23 03:06 Pulse Oximetry 96 03/09/23 03:06 Oxygen Delivery Method Room Air 03/09/23 03:06 Oxygen Flow Rate 0 03/09/23 03:06 Pain Level 7 03/09/23 03:06
[2023-03-09] MEDS: Ketorolac 30 MG/ML VIAL IM (03:25)
[2023-03-09 03:53] VITALS: PULSE 95; RESP 18; O2SAT 96
== END 2023-03-09 03:55 | disposition home or self-care (01) ==
PROVIDERS: Emergency Provider Student in an Organized Health Care Education/Training Program; PCP Family Medicine
DX: J06.9 Acute upper respiratory infection, unspecified (principal)
CPT/HCPCS: 87426; 96372; 99283; 99282; J1885

== ENCOUNTER 2023-03-09 22:11 | Emergency (ER) | payer OTHER, SELFPAY ==
[2023-03-09 22:21] VITALS: BP 131/84; PULSE 98; RESP 16; TEMP 37.3; O2SAT 98
--- NOTE | 2023-03-09 22:29 | ED.GENADUL_ITS ---
Discharge Plan Disposition Patient Disposition: Home Condition: Good Discharge Details Clinical Impression: Abdominal cramping Primary Care Provider: Brendon Vivar ED Provider: Richy Eagle Home Meds and New Rx's Prescriptions: No Action clonazepam 1 mg tablet 1 mg PO BID Qty: 56 1RF methadone 10 mg/5 mL solution 110 mg PO QAM magnesium gluconate 27 mg magnesium (500 mg) tablet 27 mg PO BID Qty: 60 3RF cyclobenzaprine 10 mg tablet 10 mg PO TID PRN (Reason: muscle spasm) Qty: 30 3RF calcitriol 0.5 mcg capsule 0.5 mcg PO BID Qty: 360 3RF Hold Instructions: Resume on 06/15/22. calcium carbonate [Tums] 200 mg calcium (500 mg) tablet,chewable 2,000 mg PO BID gabapentin 300 mg capsule 300 mg PO BID diclofenac sodium 1 % gel 4 g topical QID Qty: 100 0RF Rx Instructions: apply to single knee, ankle, foot; for foot includes sole/toes/top of foot pantoprazole [Protonix] [address] for susp in packet 40 mg PO DAILY Qty: 30 0RF Discharge Instructions Instructions: Dicyclomine (By mouth), Abdominal Pain (ED) Additional Instructions: Please take 1 tablet of Bentyl every 6-12 hours as needed for cramping. If you notice any worsening of your symptoms, or any new symptoms such as vomiting, diarrhea, fever, chills, shortness of breath, chest pain, numbness, weakness, or fainting , please return immediately to the emergency department for reevaluation. Please follow up with your primary care provider as soon as possible for reassessment and reevaluation. As always, it was a pleasure participating in your medical care today. Referrals: Brendon Vivar DO [Primary Care Provider] - Medical Decision Making This is a 27-year-old male with a past medical history significant for anxiety, depression, high cholesterol, men type I, multiple electrolyte abnormalities with [place] [facility] [place], [place] who is currently on clindamycin for a dental infection and is scheduled to have an elective cholecystectomy next week presents today for lower abdominal achiness and lower back pain. Patient was seen last night for diagnosed viral upper respiratory infection. He has been eating well at home, he had cereal and a turkey sandwich today. Bowel movements are normal. However he states that throughout the day he has had mild achiness in his lower abdomen and his back. He denies any vomiting or diarrhea. Stools have been soft. He denies any fever or chills. No other complaints at this time. No other modifying factors. No urinary complaints. Exam demonstrates a well-appearing male, no flank or CVA tenderness. No reproducible abdominal tenderness on exam. No pain at Yves's point, negative Cedillo sign. Mild achiness in the lower infraumbilical area with deep deep palpation. No evidence to suggest acute appendicitis, cholecystitis, diverticulitis. Differential includes potentially constipation, mild gastrointestinal cramping 11:15 PM On reassessment patient's pain has completely resolved after Bentyl and a GI cocktail. Patient appears notably clinically well, no evidence of acute surgical abdomen. Patient will be discharged home with a few tablets of Bentyl. Discussed red flags which to return. I have extensively reviewed the treatment plan and discharge instructions with the patient. I have addressed all patient concerns at this time. The patient was made aware of what symptoms to monitor for that would warrant a return to the emergency department. Discussed the plan with the patient, they demonstrate verbal understanding and agreement with our assessment and plan at this time. The documentation in this chart was dictated using [employer] dictation software. Please excuse any dictation errors. HPI General Date/Time Provider Initiated Documentation: 03/09/23 22:28 . HPI Narrative: This is a 27-year-old male with a past medical history significant for anxiety, depression, high cholesterol, men type I, multiple electrolyte abnormalities with subsequent [place]20[place] [facility] [place], GERD who is currently on clindamycin for a dental infection and is scheduled to have an elective cholecystectomy next week presents today for lower abdominal achiness and lower back pain. Patient was seen last night for diagnosed viral upper respiratory infection. He has been eating well at home, he had cereal and a turkey sandwich today. Bowel movements are normal. However he states that throughout the day he has had mild achiness in his lower abdomen and his back. He denies any vomiting or diarrhea. Stools have been soft. He denies any fever or chills. No other complaints at this time. No other modifying factors. No urinary complaints. Related Data Home Medications Medication Instructions Recorded Confirmed methadone 10 mg/5 mL oral solution 110 mg PO QAM 11/16/21 03/09/23 calcitriol 0.5 mcg capsule 0.5 mcg PO BID #360 caps 06/14/22 03/09/23 magnesium gluconate 27 mg 27 mg PO BID #60 tabs 11/08/22 03/09/23 magnesium (500 mg) tablet cyclobenzaprine 10 mg tablet 10 mg PO TID PRN muscle spasm #30 12/03/22 03/09/23 tabs diclofenac sodium 1 % topical gel 4 g topical QID #100 grams 12/07/22 03/09/23 calcium carbonate 200 mg calcium 2,000 mg PO BID 02/02/23 03/09/23 (500 mg) chewable tablet (Tums) gabapentin 300 mg capsule 300 mg PO BID 02/02/23 03/09/23 pantoprazole 40 mg granules 40 mg PO DAILY #30 ea 02/13/23 03/09/23 delayed-release for susp in packet (Protonix) clonazepam 1 mg tablet 1 mg PO BID #56 tabs 02/24/23 03/09/23 Previous Rx's Medication Instructions Recorded calcitriol 0.5 mcg capsule 0.5 mcg PO BID #360 caps 06/14/22 magnesium gluconate 27 mg 27 mg PO BID #60 tabs 11/08/22 magnesium (500 mg) tablet cyclobenzaprine 10 mg tablet 10 mg PO TID PRN muscle spasm #30 12/03/22 tabs diclofenac sodium 1 % topical gel 4 g topical QID #100 grams 12/07/22 pantoprazole 40 mg granules 40 mg PO DAILY #30 ea 02/13/23 delayed-release for susp in packet (Protonix) clonazepam 1 mg tablet 1 mg PO BID #56 tabs 02/24/23 Allergies Allergy/AdvReac Type Severity Reaction Status Date / Time codeine Allergy Intermediate Verified 03/09/23 03:09 Penicillins Allergy Skin Rash Verified 03/09/23 03:09 amoxicillin AdvReac Intermediate Nausea Verified 03/09/23 03:09 General Stated Complaint: Abd Prob ADRIANA: 4 Review of Systems All systems reviewed & are unremarkable except as noted in HPI and below PFSH All Active Problems (Updated 03/09/23 @ 23:14 by Richy Eagle DO) Abdominal pain (Acute) Viral URI (Acute) Abdominal cramping (Acute) Contusion of foot (Acute) Contusion of right chest wall (Acute) Nausea (Acute) Cholelithiasis (Acute ~02/13/23) Biliary colic (Acute) Cholelithiases (Acute) Chronic cervical radiculopathy (Acute) Arm pain, left (Acute) 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 (Acute) Post-operative infection (Acute) Dental infection (Acute) Inflammatory arthritis (Acute) Costochondritis (Acute 12/13/22) [facility] ED Cellulitis (Acute) Severe anxiety with panic (Chronic) Family history of coronary arteriosclerosis (Chronic) Father of [place] at 50, mother had [place] at 42 Elevated parathyroid hormone (Acute) Suicidal ideation (Acute) Depression (Chronic) Hypocalcemia (Chronic) Hypomagnesemia (Chronic) Depression (Chronic) Primary hyperparathyroidism (Chronic) Chronic constipation (Chronic) Multiple endocrine neoplasia type I (Chronic) Iatrogenic hypocalcemia (Acute) Abdominal pain (Acute) Common bile duct dilatation (Acute) Intrahepatic bile duct dilation (Acute) Abnormal CT scan, kidney (Acute) Sphincter of Oddi dysfunction (Chronic) Therapeutic opioid induced constipation (Acute) Pulmonary nodule 1 cm or greater in diameter (Chronic) Neck pain on left side (Acute) with shoulder, upper back pain.. torticollis, radiating into left hip/leg History of electrolyte imbalance (Acute) Complex medical condition (Chronic) Serious electrolyte imbalances, with gynecomastia, possible MEN Dx, CKD and anemia with baseline anxiety and Hx PTSD. CKD (chronic kidney disease) stage 2, GFR 60-89 ml/min (Acute) GFR 64-65, with Hx FLORESITA and GFR < 45 Gynecomastia, male (Acute) b/l, per CT (Jul 2022).. Possible 2' Methadone, Clnzpm (?). Surg eval (+)/No further action. 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 Adopted: No Caregiver/Support person: No Foster care: No Household members: none Housing: house Number of Children: 0 Communication Needs: None Education Level: high school Do you need help understanding health information?: Never 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 and animals: Yes (Ally) Pets and animals: dog(s) Sexually active: No Do you think of yourself as: straight/heterosexual Current gender identity: male What is your relationship status?: How often do you talk on the phone with friends or family?: twice per week How often do you get together with friends or relatives?: never Do you belong to any clubs or organized social groups?: no Panel score (0-1 are the most socially isolated patients): 0 What type of physical activity do you participate in: walking Duration: 15-30 minutes/day Frequency: 5-6 times per week Maryam/Pentecostal: Nondenominational Special maryam needs: No Seatbelt use: always Helmet use: Yes Helmet use: always Drive 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 route cdl 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 Exam Narrative Exam Narrative: 1.Const: Well-nourished, Well-developed, appearing stated age 2.Eyes: PERRL, no conjunctival injection, and symmetrical lids. 3.ENT: Atraumatic external nose and ears. Moist MM. Neck: Symmetric, trachea midline, No thyromegaly. 4.CVS: +S1/S2, No murmurs or gallops. Peripheral pulses 2+ and equal in all extremities. Brisk capillary refill in all extremities. 5.RESP: Unlabored respiratory effort. Clear to auscultation bilaterally. No wheezes rales or rhonchi 6.GI: Soft, Nontender/Nondistended, No hepatosplenomegaly. No guarding or rebound. No flank or CVA tenderness. No pain McBurney's point, negative Cedillo sign. Notably nonsurgical abdomen. 7.MSK: Normocephalic/Atraumatic, Extremities w/o deformity or ttp No cyanosis or clubbing, Normal movement of all extremities 8.Skin: Warm, Dry. No rashes or lesions. 9.Neuro: electrical prospecting observer II-XII grossly intact. Sensation grossly intact, no focal neurologic deficits. 10.Psych: (AAO) x3. Appropriate mood and affect Course Vital Signs Vital signs: Vital Signs Temperature 37.3 C 03/09/23 22:21 Pulse 98 H 03/09/23 22:21 Respiratory Rate 16 03/09/23 22:21 Blood Pressure 131/84 03/09/23 22:21 Pulse Oximetry 98 03/09/23 22:21 Temperature 37.3 C 03/09/23 22:21 Pulse 98 H 03/09/23 22:21 Respiratory Rate 16 03/09/23 22:21 Blood Pressure 131/84 03/09/23 22:21 Pulse Oximetry 98 03/09/23 22:21 Oxygen Delivery Method Room Air 03/09/23 22:21 Oxygen Flow Rate 0 03/09/23 22:21 Pain Level 6 03/09/23 22:21
[2023-03-09] MEDS: Dicyclomine 20 MG TAB PO (22:31)
[2023-03-09 22:37] LABS: Bilirubin Negative (Negative); Blood Negative (Negative); Clarity Clear (Clear); Glucose Negative (Negative); Ketones Negative (Negative); Leukocyte Esterase Negative (Negative); Nitrite Negative (Negative); Specific Gravity 1.015 (1.005-1.025); Urobilinogen 0.2 mg/dL (Up to 0.2)
[2023-03-09] MEDS: Dicyclomine 20 MG TAB 40 MG PO ×2 (23:20→23:21)
== END 2023-03-09 23:22 | disposition home or self-care (01) ==
PROVIDERS: Emergency Provider Student in an Organized Health Care Education/Training Program; PCP Family Medicine
DX: R10.30 Lower abdominal pain, unspecified (principal); M54.50 Low back pain, unspecified
CPT/HCPCS: 99282; 81003

== ENCOUNTER 2023-03-11 11:41 | Outpatient (REF) | payer MEDICAID, SELFPAY ==
[2023-03-11 14:49] LABS: Source Nasal/Nares
[2023-03-11 15:39] LABS: COVID-19 PCR Negative (Negative)
== END 2023-03-11 11:42 | disposition home or self-care (01) ==
LOC: LBN 11:41
PROVIDERS: PCP Family Medicine; Visit Provider Family Medicine
DX: Z01.818 Encounter for other preprocedural examination (principal); Z20.822 Contact with and (suspected) exposure to COVID-19
CPT/HCPCS: 87635

== ENCOUNTER 2023-03-14 09:40 | Emergency (ER) | payer OTHER, SELFPAY ==
[2023-03-14 09:43] VITALS: BP 145/97; PULSE 99; RESP 16; TEMP 37.3; O2SAT 100
--- NOTE | 2023-03-14 10:02 | ED.GENADUL_ITS ---
Discharge Plan Disposition Patient Disposition: Home Discharge Details Clinical Impression: Pain, dental Primary Care Provider: Brendon Vivar ED Provider: Antoinette Templeton Home Meds and New Rx's Prescriptions: No Action clonazepam 1 mg tablet 1 mg PO BID Qty: 56 1RF methadone 10 mg/5 mL solution 110 mg PO QAM magnesium gluconate 27 mg magnesium (500 mg) tablet 27 mg PO BID Qty: 60 3RF cyclobenzaprine 10 mg tablet 10 mg PO TID PRN (Reason: muscle spasm) Qty: 30 3RF calcitriol 0.5 mcg capsule 0.5 mcg PO BID Qty: 360 3RF Hold Instructions: Resume on 06/15/22. calcium carbonate [Tums] 200 mg calcium (500 mg) tablet,chewable 2,000 mg PO BID gabapentin 300 mg capsule 300 mg PO BID diclofenac sodium 1 % gel 4 g topical QID Qty: 100 0RF Rx Instructions: apply to single knee, ankle, foot; for foot includes sole/toes/top of foot pantoprazole [Protonix] [address] for susp in packet 40 mg PO DAILY Qty: 30 0RF Discharge Instructions Instructions: Toothache (ED) Additional Instructions: Please take Tylenol or Ibuprofen with food every 4-6 hours as needed for pain and swelling. The numbing medication will wear off in approximately 4 to 6 hours. You may continue to apply the topical NSAID cane cream as needed up to 3 times daily. You may also apply ice. Follow up with primary care provider in 3-5 days. Return to ED sooner if any worsening or concerns. Increase oral fluids. Referrals: Brendon Vivar DO [Primary Care Provider] - 3 days Medical Decision Making 27 year old male presents to the ED with chief complaint of right upper dental pain after having 2 teeth extracted yesterday. He is vomiting upon my initial examination. He has been using Tylenol and ibuprofen with little relief. He denies any bleeding no fever no chills no trismus. He is speaking in full sentences. Does have a past medical history of PTSD, hypocalcemia, hyperlipidemia depression anxiety and history of a parathyroidectomy in March 2022. Patient is requesting a dental block. We will give him topical benzocaine and perform dental block. Zofran ODT also ordered. On re-evaluation, patient is requesting additional infiltration of the inner gum line, small amount of medication given, relief was immediate. Patient feels much improved. Patient discharged after successful nerve block. Patient improved in pain. This text was generated using [employer] dictation system, please disregard any oddities of phrase or misspellings. Medical Records Medical records reviewed: Yes I reviewed the patient's medical records. HPI General Mode of arrival: ambulatory . Date/Time Provider Initiated Documentation: 03/14/23 09:51 . Limitations to Documentation: no limitations . Information obtained by: patient, RN notes reviewed and old records reviewed . HPI Narrative: 27 year old male presents to the ED with chief complaint of right upper dental pain after having 2 teeth extracted yesterday. He is vomiting upon my initial examination. He has been using Tylenol and ibuprofen with little relief. He denies any bleeding no fever no chills no trismus. He is speaking in full sentences. Does have a past medical history of PTSD, hypocalcemia, hyperlipidemia depression anxiety and history of a parathyroidectomy in March 2022. Related Data Home Medications Medication Instructions Recorded Confirmed methadone 10 mg/5 mL oral solution 110 mg PO QAM 11/16/21 03/14/23 calcitriol 0.5 mcg capsule 0.5 mcg PO BID #360 caps 06/14/22 03/14/23 magnesium gluconate 27 mg 27 mg PO BID #60 tabs 11/08/22 03/14/23 magnesium (500 mg) tablet cyclobenzaprine 10 mg tablet 10 mg PO TID PRN muscle spasm #30 12/03/22 03/14/23 tabs diclofenac sodium 1 % topical gel 4 g topical QID #100 grams 12/07/22 03/14/23 calcium carbonate 200 mg calcium 2,000 mg PO BID 02/02/23 03/14/23 (500 mg) chewable tablet (Tums) gabapentin 300 mg capsule 300 mg PO BID 02/02/23 03/14/23 pantoprazole 40 mg granules 40 mg PO DAILY #30 ea 02/13/23 03/14/23 delayed-release for susp in packet (Protonix) clonazepam 1 mg tablet 1 mg PO BID #56 tabs 02/24/23 03/14/23 Previous Rx's Medication Instructions Recorded calcitriol 0.5 mcg capsule 0.5 mcg PO BID #360 caps 06/14/22 magnesium gluconate 27 mg 27 mg PO BID #60 tabs 11/08/22 magnesium (500 mg) tablet cyclobenzaprine 10 mg tablet 10 mg PO TID PRN muscle spasm #30 12/03/22 tabs diclofenac sodium 1 % topical gel 4 g topical QID #100 grams 12/07/22 pantoprazole 40 mg granules 40 mg PO DAILY #30 ea 02/13/23 delayed-release for susp in packet (Protonix) clonazepam 1 mg tablet 1 mg PO BID #56 tabs 02/24/23 Allergies Allergy/AdvReac Type Severity Reaction Status Date / Time codeine Allergy Intermediate Verified 03/14/23 09:48 Penicillins Allergy Skin Rash Verified 03/14/23 09:48 amoxicillin AdvReac Intermediate Nausea Verified 03/14/23 09:48 General Stated Complaint: DentalOral ADRIANA: 4 Review of Systems All systems reviewed & are unremarkable except as noted in HPI and below ENT Ears, Nose, Mouth, and Throat: Reports as per HPI and Reports mouth pain PFSH All Active Problems (Updated 03/14/23 @ 10:50 by Antoinette Templeton NP) Abdominal pain (Acute) Viral URI (Acute) Abdominal cramping (Acute) Pain, dental (Acute) Contusion of foot (Acute) Contusion of right chest wall (Acute) Nausea (Acute) Cholelithiasis (Acute ~02/13/23) Biliary colic (Acute) Cholelithiases (Acute) Chronic cervical radiculopathy (Acute) Arm pain, left (Acute) 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 (Acute) Inflammatory arthritis (Acute) Costochondritis (Acute 12/13/22) [facility] ED Cellulitis (Acute) Severe anxiety with panic (Chronic) Family history of coronary arteriosclerosis (Chronic) Father of PA at 50, mother had PA at 42 Elevated parathyroid hormone (Acute) Suicidal ideation (Acute) Depression (Chronic) Hypocalcemia (Chronic) Hypomagnesemia (Chronic) Depression (Chronic) Primary hyperparathyroidism (Chronic) Chronic constipation (Chronic) Multiple endocrine neoplasia type I (Chronic) Iatrogenic hypocalcemia (Acute) Abdominal pain (Acute) Common bile duct dilatation (Acute) Intrahepatic bile duct dilation (Acute) Abnormal CT scan, kidney (Acute) Sphincter of Oddi dysfunction (Chronic) Therapeutic opioid induced constipation (Acute) Pulmonary nodule 1 cm or greater in diameter (Chronic) Neck pain on left side (Acute) with shoulder, upper back pain.. torticollis, radiating into left hip/leg History of electrolyte imbalance (Acute) Complex medical condition (Chronic) Serious electrolyte imbalances, with gynecomastia, possible MEN Dx, CKD and anemia with baseline anxiety and Hx PTSD. CKD (chronic kidney disease) stage 2, GFR 60-89 ml/min (Acute) GFR 64-65, with Hx FLORESITA and GFR < 45 Gynecomastia, male (Acute) b/l, per CT (Jul 2022).. Possible 2' Methadone, Clnzpm (?). Surg eval (+)/No further action. 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 Adopted: No Caregiver/Support person: No Foster care: No Household members: none Housing: house Number of Children: 0 Communication Needs: None Education Level: high school Do you need help understanding health information?: Never 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 and animals: Yes (Ally) Pets and animals: dog(s) Sexually active: No Do you think of yourself as: straight/heterosexual Current gender identity: male What is your relationship status?: How often do you talk on the phone with friends or family?: twice per week How often do you get together with friends or relatives?: never Do you belong to any clubs or organized social groups?: no Panel score (0-1 are the most socially isolated patients): 0 What type of physical activity do you participate in: walking Duration: 15-30 minutes/day Frequency: 5-6 times per week Maryam/Church: Muslim Special maryam needs: No Seatbelt use: always Helmet use: Yes Helmet use: always Drive 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 meals on wheels 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 Exam HENMT Teeth image: 1. Recent extractions, no surrounding swelling no bleeding. 2. Recent dental extraction, no surrounding swelling no bleeding. Course Vital Signs Vital signs: Vital Signs Temperature 37.3 C 03/14/23 09:43 Pulse 99 H 03/14/23 09:43 Respiratory Rate 16 03/14/23 09:43 Blood Pressure 145/97 H 03/14/23 09:43 Pulse Oximetry 100 03/14/23 09:43 Temperature 37.3 C 03/14/23 09:43 Temperature Source Skin 03/14/23 09:43 Pulse 99 H 03/14/23 09:43 Respiratory Rate 16 03/14/23 09:43 Blood Pressure 145/97 H 03/14/23 09:43 Blood Pressure Position Sitting 03/14/23 09:43 Pulse Oximetry 100 03/14/23 09:43 Oxygen Delivery Method Room Air 03/14/23 09:43 Oxygen Flow Rate 0 03/14/23 09:43 Pain Level 8 03/14/23 09:43 Procedures Nerve Block Nerve Block 1: Time out performed: No Local Anesthetic: Lidocaine 1% and Bupivicaine 0.5% Amount of anesthesia used (mL): 2 Side: right Intraoral Nerve Block: supraperiosteal Procedure Successful: Yes Patient Tolerated Procedure: well Complications: none
[2023-03-14] MEDS: Bupivacaine 0.5% Pres-Free 30 ML VIAL IJ (10:13)
[2023-03-14] MEDS: Benzocaine 20% Gel 30 GM JAR MM (10:13)
[2023-03-14] MEDS: Ondansetron O.D.T. 4 MG TABEF PO (10:13)
== END 2023-03-14 11:10 | disposition home or self-care (01) ==
PROVIDERS: Emergency Provider Registered Nurse Emergency; PCP Family Medicine
DX: K08.89 Other specified disorders of teeth and supporting structures (principal)
CPT/HCPCS: 64400

== ENCOUNTER 2023-03-15 23:37 | Emergency (ER) | payer OTHER, SELFPAY ==
[2023-03-15 23:41] VITALS: BP 145/94; PULSE 83; RESP 16; TEMP 36.7; O2SAT 100
--- NOTE | 2023-03-16 00:24 | W.ED.GENAD ---
Discharge Plan Disposition Patient Disposition: Home Condition: Improving Discharge Details Clinical Impression: Odontalgia, Dental caries Primary Care Provider: Brendon Vivar ED Provider: Terri Andrade Home Meds and New Rx's Prescriptions: Continued clonazepam 1 mg tablet 1 mg PO BID Qty: 56 1RF methadone 10 mg/5 mL solution 110 mg PO QAM magnesium gluconate 27 mg magnesium (500 mg) tablet 27 mg PO BID Qty: 60 3RF cyclobenzaprine 10 mg tablet 10 mg PO TID PRN (Reason: muscle spasm) Qty: 30 3RF calcitriol 0.5 mcg capsule 0.5 mcg PO BID Qty: 360 3RF Hold Instructions: Resume on 06/15/22. calcium carbonate [Tums] 200 mg calcium (500 mg) tablet,chewable 2,000 mg PO BID gabapentin 300 mg capsule 300 mg PO BID diclofenac sodium 1 % gel 4 g topical QID Qty: 100 0RF Rx Instructions: apply to single knee, ankle, foot; for foot includes sole/toes/top of foot pantoprazole [Protonix] [address] for susp in packet 40 mg PO DAILY Qty: 30 0RF Discharge Instructions Instructions: Dental Caries (ED), Toothache (ED) Additional Instructions: Ibuprofen 600 mg every 6 hours as needed for pain. You may alternate this with Tylenol 650 mg every 6 hours. Warm salt water rinses may help. Follow-up with your dentist Friday as planned for tooth removal. Return to ED for red swollen face, fever of 100.4 or above, any other concerns. Medical Decision Making Patient received an intraoral block around the affected tooth with good relief. Bupivacaine 0.5% & Xylocaine 1% used, approximately 1 mL. Patient knows to return for facial swelling, fever of 100.4 or above, any other concerns. He will see his dentist on Friday morning to have additional teeth pulled. Medical Records Medical records reviewed: Yes I reviewed the patient's medical records. HPI General Date/Time Provider Initiated Documentation: 03/16/23 00:11. HPI Narrative: This 27-year-old male patient with a history of dental caries presents with pain in an upper molar. The patient states that he is in the process of getting multiple teeth pulled and just had a tooth pulled several days ago. He says they have cracked third tooth at the time. He was seen last night and had a dental block because of pain in this tooth. He returns requesting same thing tonight. He is due to have the tooth pulled on Friday. There is no swelling or redness. He has no trismus or difficulty swallowing. There is no fever or chills. He states the tooth is very tender to touch. The pain at times has been stabbing and severe. Related Data Home Medications Medication Instructions Recorded Confirmed methadone 10 mg/5 mL oral solution 110 mg PO QAM 11/16/21 03/15/23 calcitriol 0.5 mcg capsule 0.5 mcg PO BID #360 caps 06/14/22 03/15/23 magnesium gluconate 27 mg 27 mg PO BID #60 tabs 11/08/22 03/15/23 magnesium (500 mg) tablet cyclobenzaprine 10 mg tablet 10 mg PO TID PRN muscle spasm #30 12/03/22 03/15/23 tabs diclofenac sodium 1 % topical gel 4 g topical QID #100 grams 12/07/22 03/15/23 calcium carbonate 200 mg calcium 2,000 mg PO BID 02/02/23 03/15/23 (500 mg) chewable tablet (Tums) gabapentin 300 mg capsule 300 mg PO BID 02/02/23 03/15/23 pantoprazole 40 mg granules 40 mg PO DAILY #30 ea 02/13/23 03/15/23 delayed-release for susp in packet (Protonix) clonazepam 1 mg tablet 1 mg PO BID #56 tabs 02/24/23 03/15/23 Previous Rx's Medication Instructions Recorded calcitriol 0.5 mcg capsule 0.5 mcg PO BID #360 caps 06/14/22 magnesium gluconate 27 mg 27 mg PO BID #60 tabs 11/08/22 magnesium (500 mg) tablet cyclobenzaprine 10 mg tablet 10 mg PO TID PRN muscle spasm #30 12/03/22 tabs diclofenac sodium 1 % topical gel 4 g topical QID #100 grams 12/07/22 pantoprazole 40 mg granules 40 mg PO DAILY #30 ea 02/13/23 delayed-release for susp in packet (Protonix) clonazepam 1 mg tablet 1 mg PO BID #56 tabs 02/24/23 Allergies Allergy/AdvReac Type Severity Reaction Status Date / Time codeine Allergy Intermediate Verified 03/15/23 23:45 Penicillins Allergy Skin Rash Verified 03/15/23 23:45 amoxicillin AdvReac Intermediate Nausea Verified 03/15/23 23:45 General Stated Complaint: DentalOral ADRIANA: 4 Review of Systems Constitutional Constitutional: Denies chills, Denies fever(s) and Denies headache(s) Eyes Eyes: Denies blurry vision and Reports other (no redness) ENT Ears, Nose, Mouth, and Throat: Denies otalgia, Denies headache(s), Denies mouth pain, Denies neck pain, Denies sore throat and Reports other (Has dental pain right upper mid molar) Cardiovascular Cardiovascular: Denies palpitations and Denies dyspnea Respiratory Respiratory: Denies dyspnea Gastrointestinal Gastrointestinal: Denies nausea and Denies vomiting Genitourinary Genitourinary: Denies difficulty urinating and Denies dysuria Musculoskeletal Musculoskeletal: Denies myalgias, Denies muscle weakness, Denies neck pain and Denies numbness Integumentary/Breasts Skin/Breast: Denies erythema and Reports other (No facial edema) Neurologic Neurologic: Denies headache(s) and Denies numbness Endocrine Endocrine: Denies palpitations [facility] All Active Problems Abdominal pain (Acute) Viral URI (Acute) Abdominal cramping (Acute) Pain, dental (Acute) Odontalgia (Acute) Dental caries (Acute) Contusion of foot (Acute) Contusion of right chest wall (Acute) Nausea (Acute) Cholelithiasis (Acute ~02/13/23) Biliary colic (Acute) Cholelithiases (Acute) 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 (Acute) Inflammatory arthritis (Acute) Costochondritis (Acute 12/13/22) [facility] ED Cellulitis (Acute) Severe anxiety with panic (Chronic) Family history of coronary arteriosclerosis (Chronic) Father of SC at 50, mother had SC at 42 Elevated parathyroid hormone (Acute) Suicidal ideation (Acute) Depression (Chronic) Hypocalcemia (Chronic) Hypomagnesemia (Chronic) Depression (Chronic) Primary hyperparathyroidism (Chronic) Chronic constipation (Chronic) Multiple endocrine neoplasia type I (Chronic) Iatrogenic hypocalcemia (Acute) Abdominal pain (Acute) Common bile duct dilatation (Acute) Intrahepatic bile duct dilation (Acute) Abnormal CT scan, kidney (Acute) Sphincter of Oddi dysfunction (Chronic) Therapeutic opioid induced constipation (Acute) Pulmonary nodule 1 cm or greater in diameter (Chronic) Neck pain on left side (Acute) with shoulder, upper back pain.. torticollis, radiating into left hip/leg History of electrolyte imbalance (Acute) Complex medical condition (Chronic) Serious electrolyte imbalances, with gynecomastia, possible MEN Dx, CKD and anemia with baseline anxiety and Hx PTSD. CKD (chronic kidney disease) stage 2, GFR 60-89 ml/min (Acute) GFR 64-65, with Hx FLORESITA and GFR < 45 Gynecomastia, male (Acute) b/l, per CT (Jul 2022).. Possible 2' Methadone, Clnzpm (?). Surg eval (+)/No further action. 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 Adopted: No Caregiver/Support person: No Foster care: No Household members: none Housing: house Number of Children: 0 Communication Needs: None Education Level: high school Do you need help understanding health information?: Never 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 and animals: Yes (Ally) Pets and animals: dog(s) Sexually active: No Do you think of yourself as: straight/heterosexual Current gender identity: male What is your relationship status?: How often do you talk on the phone with friends or family?: twice per week How often do you get together with friends or relatives?: never Do you belong to any clubs or organized social groups?: no Panel score (0-1 are the most socially isolated patients): 0 What type of physical activity do you participate in: walking Duration: 15-30 minutes/day Frequency: 5-6 times per week Maryam/Christianity: Denominational Special maryam needs: No Seatbelt use: always Helmet use: Yes Helmet use: always Drive 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 clark 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 Exam Const General: no acute distress, well developed, well groomed and not in acute distress Nutritional Appearance: well nourished Orientation: alert and oriented x3 HENMT Head: normocephalic and atraumatic Ears: external ears normal Mouth: oropharynx normal and moist mucous membranes Teeth and gingiva: gingiva normal and abnormal tooth or associated gingiva (Multiple caries with teeth rotted to the gumline, upper molar TTP) Throat: posterior oropharynx normal Eyes Conjunctivae: conjunctivae normal Neck Neck: full ROM, supple and no lymphadenopathy noted Chest Chest: normal inspection of the chest Resp Effort & Inspection: normal respiratory effort GI Inspection: normal to inspection Palpation: soft, nontender and other (non distended) Auscultation: normal bowel sounds Skin General skin exam: no rashes or lesions noted and other (pink, warm, dry) Neuro General: patient alert, patient awake and patient oriented x3 Speech: speech normal Motor: other (CHISHOLM) Sensory Exam: no sensory deficits noted Extrem General: normal to inspection, full ROM and pedal edema present Psych Mental Status: mental status grossly normal Speech and Movement: speech and movement normal Affect: normal affect Course Vital Signs Vital signs: Vital Signs Temperature 36.7 C 03/15/23 23:41 Pulse 83 03/15/23 23:41 Respiratory Rate 16 03/15/23 23:41 Blood Pressure 145/94 H 03/15/23 23:41 Pulse Oximetry 100 03/15/23 23:41 Temperature 36.7 C 03/15/23 23:41 Temperature Source Temporal Artery Scan 03/15/23 23:41 Pulse 83 03/15/23 23:41 Respiratory Rate 16 03/15/23 23:41 Respiratory Effort Normal 03/15/23 23:41 Blood Pressure 145/94 H 03/15/23 23:41 Blood Pressure Position Sitting 03/15/23 23:41 Pulse Oximetry 100 03/15/23 23:41 Oxygen Delivery Method Room Air 03/15/23 23:41 Oxygen Flow Rate 0 03/15/23 23:41 Pain Level 8 03/15/23 23:41
[2023-03-16] MEDS: Ketorolac 30 MG/ML VIAL IM (00:33)
== END 2023-03-16 00:35 | disposition home or self-care (01) ==
PROVIDERS: Emergency Provider Emergency Medicine; PCP Family Medicine
DX: R68.84 Jaw pain (principal)
CPT/HCPCS: 96372; 99283; J1885

== ENCOUNTER 2023-03-18 11:51 | Outpatient (CLI) | payer MEDICAID, SELFPAY ==
--- NOTE | 2023-03-18 11:45 | RT.EKG_ITS ---
APPROVED REPORT Exam: Resting ECG Reason for Exam: chest discomfort Patient Location: O HR:72 bpm ECG Measurements Heart Rate 72 AXIS IA 181 P 54 QRSd 95 QRS 50 QT 400 T 28 QTc 438 Conclusion Sinus rhythm...normal P axis, V-rate 50- 99 Normal Electrocardiogram
== END 2023-03-18 11:52 | disposition home or self-care (01) ==
LOC: DI.CM 11:51
PROVIDERS: PCP Family Medicine; Visit Provider Physician Assistant
DX: R07.89 Other chest pain (principal)
CPT/HCPCS: 93010

== ENCOUNTER 2023-03-20 09:22 | Emergency (ER) | payer OTHER, SELFPAY ==
[2023-03-20 09:28] VITALS: BP 155/85; PULSE 81; RESP 18; TEMP 36.8; O2SAT 97
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
--- NOTE | 2023-03-20 09:35 | ED.GENADUL_ITS ---
Discharge Plan Disposition Patient Disposition: Home Discharge Details Clinical Impression: Contusion Primary Care Provider: Brendon Vivar ED Provider: Richy Eagle Home Meds and New Rx's Prescriptions: No Action clonazepam 1 mg tablet 1 mg PO BID Qty: 56 1RF methadone 10 mg/5 mL solution 110 mg PO QAM magnesium gluconate 27 mg magnesium (500 mg) tablet 27 mg PO BID Qty: 60 3RF cyclobenzaprine 10 mg tablet 10 mg PO TID PRN (Reason: muscle spasm) Qty: 30 3RF calcitriol 0.5 mcg capsule 0.5 mcg PO BID Qty: 360 3RF Hold Instructions: Resume on 06/15/22. calcium carbonate [Tums] 200 mg calcium (500 mg) tablet,chewable 2,000 mg PO BID gabapentin 300 mg capsule 300 mg PO BID diclofenac sodium 1 % gel 4 g topical QID Qty: 100 0RF Rx Instructions: apply to single knee, ankle, foot; for foot includes sole/toes/top of foot pantoprazole [Protonix] [address] for susp in packet 40 mg PO DAILY Qty: 30 0RF Discharge Instructions Instructions: Contusion in Adults (ED) Additional Instructions: At this time your x-ray is negative for any evidence of fracture. Please take Tylenol as needed for pain. Please avoid Motrin as this can cause irritation to your stomach. You can also rub Voltaren/diclofenac gel on your shoulder where it is sore to help with the pain. This is an vwry-fwc-[id number] medication. If you notice any worsening of your symptoms, or any new symptoms such as vomiting, diarrhea, fever, chills, shortness of breath, chest pain, numbness, weakness, or fainting , please return immediately to the emergency department for reevaluation. Please follow up with your primary care provider as soon as possible for reassessment and reevaluation. As always, it was a pleasure participating in your medical care today. Stand Alone Forms: Work Release Referrals: Brendon Vivar DO [Primary Care Provider] - Medical Decision Making This is a 27-year-old male with a past medical history significant for anxiety, depression, high cholesterol, men type I, multiple electrolyte abnormalities with subsequent parathyroidectomy on 03/26/2022 at [facility], PTSD, GERD who presents today for evaluation of left shoulder and left rib pain. 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 This was 45 minutes prior to arrival. He had immediate pain in the area. Pain is made worse with movement and palpation. He did not take anything for it. He comes in for further assessment. He denies any other trauma or any other complaints. Physical exam demonstrates mild tenderness of the anterior left humeral head, as well as mild anterior rib tenderness. No clavicular tenderness. Questionable mild tenderness over the AC joint. No deformity or weakness otherwise. No clinical evidence of pneumothorax. Rib fracture less likely. We will get an x- ray to rule out AC joint disruption or other osseous injury. We will monitor closely and reassess and give Tylenol and Lidoderm patch. X-rays negative for acute process. Suspect contusion. Will give work note. Recommend Tylenol and Voltaren gel. I have extensively reviewed the treatment plan and discharge instructions with the patient. I have addressed all patient concerns at this time. The patient was made aware of what symptoms to monitor for that would warrant a return to the emergency department. Discussed the plan with the patient, they demonstrate verbal understanding and agreement with our assessment and plan at this time. The documentation in this chart was dictated using Reel[employer] dictation software. Please excuse any dictation errors. FINDINGS: RIBS 4 VIEWS-left There are no obvious acute rib fractures evident. No lytic rib lesions id entified. No adjacent pneumothorax. No lung contusion. FINDINGS: Four views No evidence of acute fracture or dislocation. No abnormal soft tissue calcifications evident. No joint space narrowing of the glenohumeral and AC joints. Three small benign bone islands are noted in the humeral head. Clavicle appears unremarkable. On the axial image there is os acromiale evident. HPI General Date/Time Provider Initiated Documentation: 03/20/23 09:26 . HPI Narrative: This is a 27-year-old male with a past medical history significant for anxiety, depression, high cholesterol, men type I, multiple electrolyte abnormalities with subsequent parathyroidectomy on 03/26/2022 at [facility], PTSD, GERD who presents today for evaluation of left shoulder and left rib pain. 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 This was 45 minutes prior to arrival. He had immediate pain in the area. Pain is made worse with movement and palpation. He did not take anything for it. He comes in for further assessment. He denies any other trauma or any other complaints. Related Data Home Medications Medication Instructions Recorded Confirmed methadone 10 mg/5 mL oral solution 110 mg PO QAM 11/16/21 03/20/23 calcitriol 0.5 mcg capsule 0.5 mcg PO BID #360 caps 06/14/22 03/20/23 magnesium gluconate 27 mg 27 mg PO BID #60 tabs 11/08/22 03/20/23 magnesium (500 mg) tablet cyclobenzaprine 10 mg tablet 10 mg PO TID PRN muscle spasm #30 12/03/22 03/20/23 tabs diclofenac sodium 1 % topical gel 4 g topical QID #100 grams 12/07/22 03/20/23 calcium carbonate 200 mg calcium 2,000 mg PO BID 02/02/23 03/20/23 (500 mg) chewable tablet (Tums) gabapentin 300 mg capsule 300 mg PO BID 02/02/23 03/20/23 pantoprazole 40 mg granules 40 mg PO DAILY #30 ea 02/13/23 03/20/23 delayed-release for susp in packet (Protonix) clonazepam 1 mg tablet 1 mg PO BID #56 tabs 02/24/23 03/20/23 Previous Rx's Medication Instructions Recorded calcitriol 0.5 mcg capsule 0.5 mcg PO BID #360 caps 06/14/22 magnesium gluconate 27 mg 27 mg PO BID #60 tabs 11/08/22 magnesium (500 mg) tablet cyclobenzaprine 10 mg tablet 10 mg PO TID PRN muscle spasm #30 12/03/22 tabs diclofenac sodium 1 % topical gel 4 g topical QID #100 grams 12/07/22 pantoprazole 40 mg granules 40 mg PO DAILY #30 ea 02/13/23 delayed-release for susp in packet (Protonix) clonazepam 1 mg tablet 1 mg PO BID #56 tabs 02/24/23 Allergies Allergy/AdvReac Type Severity Reaction Status Date / Time codeine Allergy Intermediate Verified 03/18/23 11:47 Penicillins Allergy Skin Rash Verified 03/18/23 11:47 amoxicillin AdvReac Intermediate Nausea Verified 03/18/23 11:47 General Stated Complaint: Orthopedic ADRIANA: 4 Review of Systems All systems reviewed & are unremarkable except as noted in HPI and below PFSH All Active Problems (Updated 03/20/23 @ 09:44 by Richy Eagle DO) Contusion (Acute) Abdominal pain (Acute) Viral URI (Acute) Abdominal cramping (Acute) Pain, dental (Acute) Odontalgia (Acute) Dental caries (Acute) Contusion of foot (Acute) Contusion of right chest wall (Acute) Nausea (Acute) Cholelithiases (Acute) 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 Cellulitis (Acute) Severe anxiety with panic (Chronic) Family history of coronary arteriosclerosis (Chronic) Father of [place] at 50, mother had [place] at 42 Elevated parathyroid hormone (Acute) Suicidal ideation (Acute) Depression (Chronic) Hypocalcemia (Chronic) Hypomagnesemia (Chronic) Depression (Chronic) Primary hyperparathyroidism (Chronic) Chronic constipation (Chronic) Multiple endocrine neoplasia type I (Chronic) Iatrogenic hypocalcemia (Acute) Abdominal pain (Acute) Common bile duct dilatation (Acute) Intrahepatic bile duct dilation (Acute) Abnormal CT scan, kidney (Acute) Sphincter of Oddi dysfunction (Chronic) Therapeutic opioid induced constipation (Acute) Pulmonary nodule 1 cm or greater in diameter (Chronic) Neck pain on left side (Acute) with shoulder, upper back pain.. torticollis, radiating into left hip/leg History of electrolyte imbalance (Acute) Complex medical condition (Chronic) Serious electrolyte imbalances, with gynecomastia, possible MEN Dx, CKD and anemia with baseline anxiety and Hx PTSD. CKD (chronic kidney disease) stage 2, GFR 60-89 ml/min (Acute) GFR 64-65, with Hx FLORESITA and GFR < 45 Gynecomastia, male (Acute) b/l, per CT (Jul 2022).. Possible 2' Methadone, Clnzpm (?). Surg eval (+)/No further action. 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 Adopted: No Caregiver/Support person: No Foster care: No Household members: none Housing: house Number of Children: 0 Communication Needs: None Education Level: high school Do you need help understanding health information?: Never 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 and animals: Yes (Ally) Pets and animals: dog(s) Sexually active: No Do you think of yourself as: straight/heterosexual Current gender identity: male What is your relationship status?: How often do you talk on the phone with friends or family?: twice per week How often do you get together with friends or relatives?: never Do you belong to any clubs or organized social groups?: no Panel score (0-1 are the most socially isolated patients): 0 What type of physical activity do you participate in: walking Duration: 15-30 minutes/day Frequency: 5-6 times per week Maryam/Latter-Day: Congregational Special maryam needs: No Seatbelt use: always Helmet use: Yes Helmet use: always Drive 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 3.ENT: Atraumatic external nose and ears. Moist MM. Neck: Symmetric, trachea midline, No thyromegaly. 4.CVS: +S1/S2, No murmurs or gallops. Peripheral pulses 2+ and equal in all ext remities. Brisk capillary refill in all extremities. 5.RESP: Unlabored respiratory effort. Clear to auscultation bilaterally. No wheezes rales or rhonchi 6.GI: Soft, Nontender/Nondistended, No hepatosplenomegaly. No guarding or rebound. 7.MSK: Minimal tenderness over the anterior humeral head, no clavicular tenderness. Mild tenderness over the AC joint. Patient demonstrates good movement and strength for internal and external rotation of the shoulder, adduction and abduction, and anterior and posterior movement. No joint laxity. No redness or to deformity or evidence of dislocation. Normal strength. Minimal tenderness over the left anterior lateral ribs. 8.Skin: Warm, Dry. No rashes or lesions. 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 Sensation grossly intact, no focal neuro logic deficits. 10.Psych: (AAO) x3. Appropriate mood and affect Course Vital Signs Vital signs: Vital Signs Temperature 36.8 C 03/20/23 09:28 Pulse 81 03/20/23 09:28 Respiratory Rate 18 03/20/23 09:28 Blood Pressure 155/85 H 03/20/23 09:28 Pulse Oximetry 97 03/20/23 09:28 Temperature 36.8 C 03/20/23 09:28 Temperature Source Oral 03/20/23 09:28 Pulse 81 03/20/23 09:28 Respiratory Rate 18 03/20/23 09:28 Blood Pressure 155/85 H 03/20/23 09:28 Blood Pressure Position Sitting 03/20/23 09:28 Pulse Oximetry 97 03/20/23 09:28 Pain Level 5 03/20/23 09:28
[2023-03-20] MEDS: Lidocaine 5% Patch 1 PATCH TP (09:46)
[2023-03-20] MEDS: Acetaminophen 500 MG TAB 1000 MG PO (09:46)
[2023-03-20 11:16] VITALS: BP 119/76; PULSE 76; RESP 18; O2SAT 99
== END 2023-03-20 11:19 | disposition home or self-care (01) ==
LOC: ER 09:47
PROVIDERS: Emergency Provider Student in an Organized Health Care Education/Training Program; PCP Family Medicine
DX: S40.011A Contusion of right shoulder, initial encounter (principal); N18.9 Chronic kidney disease, unspecified; E78.00 Pure hypercholesterolemia, unspecified; E31.21 Multiple endocrine neoplasia [MEN] type I; F32.A Depression, unspecified; F41.9 Anxiety disorder, unspecified; W22.8XXA Striking against or struck by other objects, initial encounter; Y92.89 Other specified places as the place of occurrence of the external cause; Y93.89 Activity, other specified; Y99.9 Unspecified external cause status
CPT/HCPCS: 99283; 71100; 73030

== ENCOUNTER 2023-03-20 20:26 | Emergency (ER) | payer OTHER, SELFPAY ==
[2023-03-20 20:51] VITALS: BP 129/71; PULSE 103; RESP 24; TEMP 37.3; O2SAT 94
[2023-03-20 21:18] VITALS: PULSE 103; RESP 23; TEMP 37.2; O2SAT 94
[2023-03-20 21:43] LABS: Influenza A PCR Negative (Negative); Influenza B PCR Negative (Negative); RSV PCR Negative (Negative)
[2023-03-20 21:49] LABS: COVID-19 PCR Positive (Negative)
[2023-03-20 21:50] LABS: Source NASOPHARYNX
--- NOTE | 2023-03-20 21:51 | W.ED.GENAD ---
Discharge Plan Disposition Patient Disposition: Home Condition: Stable Discharge Details Clinical Impression: COVID-19 Primary Care Provider: Brendon Vivar ED Provider: Antoinette Templeton Home Meds and New Rx's Prescriptions: No Action clonazepam 1 mg tablet 1 mg PO BID Qty: 56 1RF methadone 10 mg/5 mL solution 110 mg PO QAM magnesium gluconate 27 mg magnesium (500 mg) tablet 27 mg PO BID Qty: 60 3RF cyclobenzaprine 10 mg tablet 10 mg PO TID PRN (Reason: muscle spasm) Qty: 30 3RF calcitriol 0.5 mcg capsule 0.5 mcg PO BID Qty: 360 3RF Hold Instructions: Resume on 06/15/22. calcium carbonate [Tums] 200 mg calcium (500 mg) tablet,chewable 2,000 mg PO BID gabapentin 300 mg capsule 300 mg PO BID diclofenac sodium 1 % gel 4 g topical QID Qty: 100 0RF Rx Instructions: apply to single knee, ankle, foot; for foot includes sole/toes/top of foot pantoprazole [Protonix] [address] for susp in packet 40 mg PO DAILY Qty: 30 0RF Discharge Instructions Instructions: COVID-19 (Coronavirus Disease 2019) (ED) Additional Instructions: You have tested positive for COVID-19. Please take xzwy-bkp-[id number] cough suppressants and vitamins including zinc and vitamin C. You may also take vitamin D. Continue to quarantine and wear mask for the next 5 days. Please take Tylenol or Ibuprofen with food every 4-6 hours as needed for pain and swelling. Follow up with primary care provider in 3-5 days. Return to ED sooner if any worsening or concerns. Increase oral fluids. Referrals: Brendon Vivar DO [Primary Care Provider] - 5 days Medical Decision Making 27-year-old male who is well-known to the department presents to the ER with body aches. He reports that his mom is positive for COVID. He also endorses snorting heroin prior to arrival. He is alert and oriented vitally stable. COVID swab positive Discharged with home care. This text was generated using micecloud dictation system, please disregard any oddities of phrase or misspellings. HPI General Mode of arrival: ambulatory. Date/Time Provider Initiated Documentation: 03/20/23 21:11. Limitations to Documentation: no limitations. Information obtained by: patient, RN notes reviewed and old records reviewed. HPI Narrative: 27-year-old male who is well-known to the department presents to the ER with body aches. He reports that his mom is positive for COVID. He also endorses snorting heroin prior to arrival. He is alert and oriented vitally stable. Related Data Home Medications Medication Instructions Recorded Confirmed methadone 10 mg/5 mL oral solution 110 mg PO QAM 11/16/21 03/20/23 calcitriol 0.5 mcg capsule 0.5 mcg PO BID #360 caps 06/14/22 03/20/23 magnesium gluconate 27 mg 27 mg PO BID #60 tabs 11/08/22 03/20/23 magnesium (500 mg) tablet cyclobenzaprine 10 mg tablet 10 mg PO TID PRN muscle spasm #30 12/03/22 03/20/23 tabs diclofenac sodium 1 % topical gel 4 g topical QID #100 grams 12/07/22 03/20/23 calcium carbonate 200 mg calcium 2,000 mg PO BID 02/02/23 03/20/23 (500 mg) chewable tablet (Tums) gabapentin 300 mg capsule 300 mg PO BID 02/02/23 03/20/23 pantoprazole 40 mg granules 40 mg PO DAILY #30 ea 02/13/23 03/20/23 delayed-release for susp in packet (Protonix) clonazepam 1 mg tablet 1 mg PO BID #56 tabs 02/24/23 03/20/23 Previous Rx's Medication Instructions Recorded calcitriol 0.5 mcg capsule 0.5 mcg PO BID #360 caps 06/14/22 magnesium gluconate 27 mg 27 mg PO BID #60 tabs 11/08/22 magnesium (500 mg) tablet cyclobenzaprine 10 mg tablet 10 mg PO TID PRN muscle spasm #30 12/03/22 tabs diclofenac sodium 1 % topical gel 4 g topical QID #100 grams 12/07/22 pantoprazole 40 mg granules 40 mg PO DAILY #30 ea 02/13/23 delayed-release for susp in packet (Protonix) clonazepam 1 mg tablet 1 mg PO BID #56 tabs 02/24/23 Allergies Allergy/AdvReac Type Severity Reaction Status Date / Time codeine Allergy Intermediate Verified 03/18/23 11:47 Penicillins Allergy Skin Rash Verified 03/18/23 11:47 amoxicillin AdvReac Intermediate Nausea Verified 03/18/23 11:47 General Stated Complaint: GenMedical ADRIANA: 3 Review of Systems All systems reviewed & are unremarkable except as noted in HPI and below Constitutional Constitutional: Reports as per HPI and Reports body ache(s) [facility] All Active Problems Contusion (Acute) COVID-19 (Acute) Abdominal pain (Acute) Viral URI (Acute) Abdominal cramping (Acute) Pain, dental (Acute) Odontalgia (Acute) Dental caries (Acute) Contusion of foot (Acute) Contusion of right chest wall (Acute) Nausea (Acute) Cholelithiases (Acute) 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 (Acute) Inflammatory arthritis (Acute) Costochondritis (Acute 12/13/22) [facility] Cellulitis (Acute) Severe anxiety with panic (Chronic) Family history of coronary arteriosclerosis (Chronic) Father of [place] at 50, mother had [place] at 42 Elevated parathyroid hormone (Acute) Suicidal ideation (Acute) Depression (Chronic) Hypocalcemia (Chronic) Hypomagnesemia (Chronic) Depression (Chronic) Primary hyperparathyroidism (Chronic) Chronic constipation (Chronic) Multiple endocrine neoplasia type I (Chronic) Iatrogenic hypocalcemia (Acute) Abdominal pain (Acute) Common bile duct dilatation (Acute) Intrahepatic bile duct dilation (Acute) Abnormal CT scan, kidney (Acute) Sphincter of Oddi dysfunction (Chronic) Therapeutic opioid induced constipation (Acute) Pulmonary nodule 1 cm or greater in diameter (Chronic) Neck pain on left side (Acute) with shoulder, upper back pain.. torticollis, radiating into left hip/leg History of electrolyte imbalance (Acute) Complex medical condition (Chronic) Serious electrolyte imbalances, with gynecomastia, possible MEN Dx, CKD and anemia with baseline anxiety and Hx PTSD. CKD (chronic kidney disease) stage 2, GFR 60-89 ml/min (Acute) GFR 64-65, with Hx FLORESITA and GFR < 45 Gynecomastia, male (Acute) b/l, per CT (Jul 2022).. Possible 2' Methadone, Clnzpm (?). Surg eval (+)/No further action. Left arm numbness (Acute) Medical History Anxiety Depression Family history of multiple endocrine neoplasia, type 1 Hyperlipidemia Hypocalcemia PTSD (post-traumatic stress disorder) Surgical History H/O parathyroidectomy Family History Mother Anxiety Asthma Depression Sister Anxiety Depression Father Cancer lung & stomach Depression Diabetes Hypertension MEN 1 (multiple endocrine neoplasia) Social History Smoking/Tobacco Use Status: Never Smoking risk assessment performed?: Yes Alcohol Intake: never Drug use: Current Sobriety Substance use type: heroin Details: Relapse w/ snorting'small amount' of heroin 03/20/23 per pt Adopted: No Caregiver/Support person: No Foster care: No Household members: none Housing: house Number of Children: 0 Communication Needs: None Education Level: high school Do you need help understanding health information?: Never 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 and animals: Yes (Ally) Pets and animals: dog(s) Sexually active: No Do you think of yourself as: straight/heterosexual Current gender identity: male What is your relationship status?: How often do you talk on the phone with friends or family?: twice per week How often do you get together with friends or relatives?: never Do you belong to any clubs or organized social groups?: no Panel score (0-1 are the most socially isolated patients): 0 What type of physical activity do you participate in: walking Duration: 15-30 minutes/day Frequency: 5-6 times per week Maryam/Roman Catholic: Evangelical Special maryam needs: No Seatbelt use: always Helmet use: Yes Helmet use: always Drive 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 Exam Const General: cooperative, comfortable and well developed Nutritional Appearance: average body habitus Orientation: alert, awake and oriented x3 Course Vital Signs Vital signs: Vital Signs Temperature 37.3 C 03/20/23 20:51 Pulse 103 H 03/20/23 20:51 Respiratory Rate 24 03/20/23 20:51 Blood Pressure 129/71 03/20/23 20:51 Pulse Oximetry 94 03/20/23 20:51 Temperature 37.2 C 03/20/23 21:18 Temperature Source Temporal Artery Scan 03/20/23 21:18 Pulse 103 H 03/20/23 21:18 Respiratory Rate 23 03/20/23 21:18 Respiratory Effort Normal, Non-Labored, Short of Breath 03/20/23 21:18 Respiratory Depth Normal 03/20/23 21:18 Respiratory Pattern Normal 03/20/23 21:18 Blood Pressure 129/71 03/20/23 20:51 Blood Pressure Position Sitting 03/20/23 20:51 Pulse Oximetry 94 03/20/23 21:18 Oxygen Delivery Method Room Air 03/20/23 21:18 Oxygen Flow Rate 0 03/20/23 20:51 Pain Level 5 03/20/23 21:18 Lab/Test Results Lab/Test Results: Laboratory Tests Range/Units 03/20/23 21:02 COVID-19 Source NASOPHARYNX SARS-CoV-2 (PCR) (Negative) Positive A Influenza Type A (PCR) (Negative) Negative Influenza Type B (PCR) (Negative) Negative RSV (PCR) (Negative) Negative
== END 2023-03-20 22:13 | disposition home or self-care (01) ==
PROVIDERS: Emergency Medicine; Emergency Provider Registered Nurse Emergency; PCP Family Medicine
DX: U07.1 COVID-19 (principal); R53.81 Other malaise; R52 Pain, unspecified
CPT/HCPCS: 87637; 99282; 99283

== ENCOUNTER 2023-03-22 06:12 | Emergency (ER) | payer OTHER, SELFPAY ==
--- NOTE | 2023-03-22 06:15 | DI.RAD_ITS ---
Exam(s) XR PORTABLE CHEST AP EXAM: XR PORTABLE CHEST AP CLINICAL HISTORY: Shortness of breath TECHNIQUE: 2D digital imaging was performed of the chest. One image was obtained. An AP view was ob tained. COMPARISON: CR,XR XR CHEST 2V PA LATERAL from 02/24/2023 CR XR RIBS ONLY LT from 03/20/2023 FINDINGS: MEDIASTINUM: Normal. HEART: Normal. PULMONARY VASCULATURE: Normal. LUNGS: Clear. PLEURAL SPACE: No pleural effusion or pneumothorax. BONE:Within normal limits for the patient's age. OTHER FINDINGS:Normal. IMPRESSION: No acute pulmonary findings. DATA REPOSITORY: RADIATION DOSE DELIVERED:
[2023-03-22 06:18] VITALS: BP 132/76; PULSE 92; RESP 16; TEMP 36.3; O2SAT 96
--- NOTE | 2023-03-22 06:39 | ED.PROG_ITS ---
Date of service: 03/22/23 Time of Service: 06:39 Medical Decision Making This patient arrived towards the end of my shift in the setting of recent COVID infection causing him to vomit throughout the evening. He reports shortness of breath and generalized myalgias. He is quite well-appearing afebrile and not t achycardic with a normal room air oxygen saturation. He has been seen in the emergency department 2 days ago on 2 separate occasions and at [facility] earlier this month. I ordered a portable chest x-ray, 1 L of IV fluids, basic metabolic panel and a CBC. I also ordered IV acetaminophen and ondansetron. Discharge Plan Discharge Details Chief Complaint: GenMedical Primary Care Provider: Brendon Vivar ED Provider: Provider,Temporary Home Meds and New Rx's Prescriptions: No Action clonazepam 1 mg tablet 1 mg PO BID Qty: 56 1RF methadone 10 mg/5 mL solution 110 mg PO QAM magnesium gluconate 27 mg magnesium (500 mg) tablet 27 mg PO BID Qty: 60 3RF cyclobenzaprine 10 mg tablet 10 mg PO TID PRN (Reason: muscle spasm) Qty: 30 3RF calcitriol 0.5 mcg capsule 0.5 mcg PO BID Qty: 360 3RF Hold Instructions: Resume on 06/15/22. calcium carbonate [Tums] 200 mg calcium (500 mg) tablet,chewable 2,000 mg PO BID gabapentin 300 mg capsule 300 mg PO BID diclofenac sodium 1 % gel 4 g topical QID Qty: 100 0RF Rx Instructions: apply to single knee, ankle, foot; for foot includes sole/toes/top of foot pantoprazole [Protonix] [address] for susp in packet 40 mg PO DAILY Qty: 30 0RF
[2023-03-22] MEDS: Ondansetron 4 MG/2 ML VIAL IVP (06:40)
[2023-03-22] MEDS: Normal Saline 1,000 ML 1000 ML IV (06:40)
[2023-03-22] MEDS: ACETAMINOPHEN 1,000 MG/100 ML BTL 400 MG IVPB (06:46)
[2023-03-22 06:51] VITALS: RESP 16
[2023-03-22 07:01] LABS: Anion Gap 5.4 mmol/L (3-11); BUN 12 mg/dL (7-18); CO2 33.6 mmol/L (21.0-32.0); CREATININE 1.2 mg/dL (0.70-1.30); Chloride 97 mmol/L (98-107); Estimated GFR 83.95 (mL/min/1.73m2); Glucose 113 mg/dL (74-106); Potassium 3.8 mmol/L (3.5-5.1); Sodium 136 mmol/L (136-145)
[2023-03-22 07:12] LABS: Abs Immature Grans 0.01 10^3/uL (0.0-0.06); Absolute Basophil Count 0.04 10^3/uL (0.0-0.2); Absolute Eosinophil Count 0.14 10^3/uL (0.0-0.7); Absolute Lymphocyte Count 1.34 10^3/uL (1.2-3.4); Absolute Monocyte Count 1.14 10^3/uL (0.1-0.8); Absolute Neutrophil Count 3.54 10^3/uL (1.2-6.7); Basophils % 0.6; Eosinophils % 2.3; HCT 36.8 % (40.0-50.0); HGB 12.1 g/dL (13.5-17.5); Immature Grans % 0.2; Lymphocytes % 21.6; MCH 30.7 pg (27.0-33.0); MCHC 32.9 % (32.0-36.0); MCV 93 fL (80-95); MPV 10.9 fL (8.0-11.0); Monocytes % 18.4; Neutrophils % 56.9; Platelet Count 271 10^3/uL (130-400); RBC 3.94 10^6/uL (4.36-5.78); RDW 12.1 % (11.8-14.1); RDW-SD 42.3 fL; WBC 6.21 10^3/uL (4.4-10.8)
--- NOTE | 2023-03-22 07:42 | DI.VRAD_ITS ---
PROCEDURE INFORMATION: Exam: XR Chest Exam date and time: 03/22/2023 7:02 AM Age: 27 years old Clinical indication: Shortness of breath TECHNIQUE: Imaging protocol: Radiologic exam of the chest. Views: 1 view. COMPARISON: CR XR CHEST 2V PA LATERAL 02/24/2023 8:16 PM FINDINGS: Lungs: Unremarkable. No consolidation. Pleural spaces: Unremarkable. No pleural effusion. No pneumothorax. Heart/Mediastinum: Unremarkable. No cardiomegaly. Bones/joints: Unremarkable. IMPRESSION: No acute findings. Dictated and Authenticated by: Crow Bedolla MD. Ordering:VIDHI Vasquez MD
--- NOTE | 2023-03-22 07:44 | W.ED.GENAD ---
Discharge Plan Disposition Patient Disposition: Home Condition: Good Discharge Details Clinical Impression: COVID Primary Care Provider: Brendon Vivar ED Provider: Kimberli Martinez Home Meds and New Rx's Prescriptions: New ondansetron 4 mg tablet,disintegrating 4 mg PO Q8H Qty: 5 0RF No Action clonazepam 1 mg tablet 1 mg PO BID Qty: 56 1RF methadone 10 mg/5 mL solution 110 mg PO QAM magnesium gluconate 27 mg magnesium (500 mg) tablet 27 mg PO BID Qty: 60 3RF cyclobenzaprine 10 mg tablet 10 mg PO TID PRN (Reason: muscle spasm) Qty: 30 3RF calcitriol 0.5 mcg capsule 0.5 mcg PO BID Qty: 360 3RF Hold Instructions: Resume on 06/15/22. calcium carbonate [Tums] 200 mg calcium (500 mg) tablet,chewable 2,000 mg PO BID gabapentin 300 mg capsule 300 mg PO BID diclofenac sodium 1 % gel 4 g topical QID Qty: 100 0RF Rx Instructions: apply to single knee, ankle, foot; for foot includes sole/toes/top of foot pantoprazole [Protonix] [address] for susp in packet 40 mg PO DAILY Qty: 30 0RF Discharge Instructions Instructions: Viral Syndrome (ED) Additional Instructions: Take Tylenol and ibuprofen over the counter as needed; follow the directions on the bottle. You can take zofran for nausea up to every 8 hours. Call your primary care doctor today to schedule an appointment to follow up on your visit today. Return to the emergency department for new or worsening symptoms. Discharge Data Discharge Date/Time-TO BE ENTERED AT DEPARTURE: 03/22/23 08:20 Medical Decision Making 27yo M with week of malaise and cough, COVID + on 03/20, has persistent cough and now with nausea and vomiting. Vital signs and physical exam reassuring, no abdominal tenderness. Not septic. Not concerned for surgical intraabdominal pathology. No respiratory distress. Labs reviewed as below, CBC & CMP reassuring, no significant electrolyte abnormalities, Hg at baseline. CXR independently reviewed, no focal pneumonia or pneumothorax on my view, agree with radiology read below. Given zofran; PO challenged and tolerated well. Patient is on methadone; EKG on 03/18/23 with no QT prolongation. Prescribed short course of zofran and discharged home. Discharged home; discharge instructions including return precautions were reviewed with patient who verbalized understanding. All questions were answered and they are in full agreement with the plan. Imaging Data Radiologic Study: Imaging: X-Ray Radiologist's impression: IMPRESSION: No acute findings. Lab Data Lab results reviewed: Yes I reviewed the patient's lab results. Labs: Laboratory Tests Range/Units 03/22/23 03/22/23 06:30 06:30 WBC (4.4-10.8) 10^3/uL 6.21 RBC (4.36-5.78) 10^6/uL 3.94 L Hgb (13.5-17.5) g/dL 12.1 L Hct (40.0-50.0) % 36.8 L MCV (80-95) fL 93 MCH (27.0-33.0) pg 30.7 MCHC (32.0-36.0) % 32.9 RDW (11.8-14.1) % 12.1 Plt Count (130-400) 10^3/uL 271 MPV (8.0-11.0) fL 10.9 Immature Gran % 0.2 Neutrophils % 56.9 Lymphocytes % 21.6 Monocytes % 18.4 Eosinophils % 2.3 Basophils % 0.6 Nucleated RBC % (0.0-0.3) % 0.0 Absolute Neutrophils (1.2-6.7) 10^3/uL 3.54 Absolute Lymphocytes (1.2-3.4) 10^3/uL 1.34 Absolute Monocytes (0.1-0.8) 10^3/uL 1.14 H Absolute Eosinophils (0.0-0.7) 10^3/uL 0.14 Absolute Basophils (0.0-0.2) 10^3/uL 0.04 Sodium (136-145) mmol/L 136 Potassium (3.5-5.1) mmol/L 3.8 Chloride (98-107) mmol/L 97 L Carbon Dioxide (21.0-32.0) mmol/L 33.6 H Anion Gap (3-11) mmol/L 5.4 BUN (7-18) mg/dL 12 Creatinine (0.70-1.30) mg/dL 1.2 Est GFR (CKD-EPI 2020) (mL/min/1.73m2) 83.95 Glucose (74-106) mg/dL 113 H Calcium (8.5-10.1) mg/dL 9.0 HPI General Mode of arrival: ambulatory. Date/Time Provider Initiated Documentation: 03/22/23 06:16. Limitations to Documentation: no limitations. Information obtained by: patient. HPI Narrative: 27yo M presenting with nausea & vomiting. One week of malaise and cough, COVID + on 03/20, has persistent cough and now with nausea and vomiting. Several episodes of nonbloody nonbilious emesis last night. No fevers, rash, abdominal pain, or diarrhea. No chest pain or difficulty breathing. Diffuse body aches, no focal pain. Otherwise in his usual state of health. Related Data Home Medications Medication Instructions Recorded Confirmed methadone 10 mg/5 mL oral solution 110 mg PO QAM 11/16/21 03/22/23 calcitriol 0.5 mcg capsule 0.5 mcg PO BID #360 caps 06/14/22 03/22/23 magnesium gluconate 27 mg 27 mg PO BID #60 tabs 11/08/22 03/22/23 magnesium (500 mg) tablet cyclobenzaprine 10 mg tablet 10 mg PO TID PRN muscle spasm #30 12/03/22 03/22/23 tabs diclofenac sodium 1 % topical gel 4 g topical QID #100 grams 12/07/22 03/22/23 calcium carbonate 200 mg calcium 2,000 mg PO BID 02/02/23 03/22/23 (500 mg) chewable tablet (Tums) gabapentin 300 mg capsule 300 mg PO BID 02/02/23 03/22/23 pantoprazole 40 mg granules 40 mg PO DAILY #30 ea 02/13/23 03/22/23 delayed-release for susp in packet (Protonix) clonazepam 1 mg tablet 1 mg PO BID #56 tabs 02/24/23 03/22/23 ondansetron 4 mg disintegrating 4 mg PO Q8H #5 tabs 03/22/23 tablet Previous Rx's Medication Instructions Recorded calcitriol 0.5 mcg capsule 0.5 mcg PO BID #360 caps 06/14/22 magnesium gluconate 27 mg 27 mg PO BID #60 tabs 11/08/22 magnesium (500 mg) tablet cyclobenzaprine 10 mg tablet 10 mg PO TID PRN muscle spasm #30 12/03/22 tabs diclofenac sodium 1 % topical gel 4 g topical QID #100 grams 12/07/22 pantoprazole 40 mg granules 40 mg PO DAILY #30 ea 02/13/23 delayed-release for susp in packet (Protonix) clonazepam 1 mg tablet 1 mg PO BID #56 tabs 02/24/23 ondansetron 4 mg disintegrating 4 mg PO Q8H #5 tabs 03/22/23 tablet Allergies Allergy/AdvReac Type Severity Reaction Status Date / Time codeine Allergy Intermediate Verified 03/22/23 06:21 Penicillins Allergy Skin Rash Verified 03/22/23 06:21 amoxicillin AdvReac Intermediate Nausea Verified 03/22/23 06:21 General Stated Complaint: GenMedical ADRIANA: 3 Review of Systems Narrative: see HPI PFSH All Active Problems (Updated 03/22/23 @ 07:47 by Kimberli Martinez MD) Contusion (Acute) COVID-19 (Acute) COVID (Acute) Abdominal pain (Acute) Viral URI (Acute) Abdominal cramping (Acute) Pain, dental (Acute) Odontalgia (Acute) Dental caries (Acute) Contusion of foot (Acute) Contusion of right chest wall (Acute) Nausea (Acute) Cholelithiases (Acute) 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 (Acute) Inflammatory arthritis (Acute) Costochondritis (Acute 12/13/22) [facility] ED Cellulitis (Acute) Severe anxiety with panic (Chronic) Family history of coronary arteriosclerosis (Chronic) Father of [place] at 50, mother had [place] at 42 Elevated parathyroid hormone (Acute) Suicidal ideation (Acute) Depression (Chronic) Hypocalcemia (Chronic) Hypomagnesemia (Chronic) Depression (Chronic) Primary hyperparathyroidism (Chronic) Chronic constipation (Chronic) Multiple endocrine neoplasia type I (Chronic) Iatrogenic hypocalcemia (Acute) Abdominal pain (Acute) Common bile duct dilatation (Acute) Intrahepatic bile duct dilation (Acute) Abnormal CT scan, kidney (Acute) Sphincter of Oddi dysfunction (Chronic) Therapeutic opioid induced constipation (Acute) Pulmonary nodule 1 cm or greater in diameter (Chronic) Neck pain on left side (Acute) with shoulder, upper back pain.. torticollis, radiating into left hip/leg History of electrolyte imbalance (Acute) Complex medical condition (Chronic) Serious electrolyte imbalances, with gynecomastia, possible MEN Dx, CKD and anemia with baseline anxiety and Hx PTSD. CKD (chronic kidney disease) stage 2, GFR 60-89 ml/min (Acute) GFR 64-65, with Hx FLORESITA and GFR < 45 Gynecomastia, male (Acute) b/l, per CT (Jul 2022).. Possible 2' Methadone, Clnzpm (?). Surg eval (+)/No further action. Left arm numbness (Acute) Medical History Anxiety Depression Family history of multiple endocrine neoplasia, type 1 Hyperlipidemia Hypocalcemia PTSD (post-traumatic stress disorder) Surgical History H/O parathyroidectomy Family History Mother Anxiety Asthma Depression Sister Anxiety Depression Father Cancer lung & stomach Depression Diabetes Hypertension MEN 1 (multiple endocrine neoplasia) Social History Smoking/Tobacco Use Status: Never Smoking risk assessment performed?: Yes Alcohol Intake: never Drug use: Current Sobriety Substance use type: heroin Details: Relapse w/ snorting'small amount' of heroin 03/20/23 per pt Adopted: No Caregiver/Support person: No Foster care: No Household members: none Housing: house Number of Children: 0 Communication Needs: None Education Level: high school Do you need help understanding health information?: Never 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 and animals: Yes (Ally) Pets and animals: dog(s) Sexually active: No Do you think of yourself as: straight/heterosexual Current gender identity: male What is your relationship status?: How often do you talk on the phone with friends or family?: twice per week How often do you get together with friends or relatives?: never Do you belong to any clubs or organized social groups?: no Panel score (0-1 are the most socially isolated patients): 0 What type of physical activity do you participate in: walking Duration: 15-30 minutes/day Frequency: 5-6 times per week Maryam/Sikh: Roman Catholic Special maryam needs: No Seatbelt use: always Helmet use: Yes Helmet use: always Drive 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 industrial tractor 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 Exam Narrative Exam Narrative: General: Alert, well appearing, well nourished, in no acute distress. Head: Normocephalic, atraumatic Neck: Trachea midline, Neck supple. Cardiac: RRR, no murmurs appreciated Resp: No respiratory distress. CTAB. Abd: Soft, non-distended, nontender : No suprapubic tenderness. Extremities: No deformities. No peripheral edema. Neurologic: GCS 15. Moves all extremities freely against gravity Course Vital Signs Vital signs: Vital Signs Temperature 36.3 C L 03/22/23 06:18 Pulse 92 H 03/22/23 06:18 Respiratory Rate 16 03/22/23 06:18 Blood Pressure 132/76 03/22/23 06:18 Pulse Oximetry 96 03/22/23 06:18 Temperature 36.3 C L 03/22/23 06:18 Temperature Source Oral 03/22/23 06:18 Pulse 92 H 03/22/23 06:18 Respiratory Rate 16 03/22/23 06:51 Respiratory Effort Normal 03/22/23 06:51 Respiratory Depth Normal 03/22/23 06:51 Respiratory Pattern Normal 03/22/23 06:51 Blood Pressure 132/76 03/22/23 06:18 Blood Pressure Position Sitting 03/22/23 06:18 Pulse Oximetry 96 03/22/23 06:18 Oxygen Delivery Method Room Air 03/22/23 06:18 Oxygen Flow Rate 0 03/22/23 06:18 Pain Level 7 03/22/23 06:18 Lab/Test Results Lab/Test Results: Laboratory Tests Range/Units 03/22/23 03/22/23 06:30 06:30 WBC (4.4-10.8) 10^3/uL 6.21 RBC (4.36-5.78) 10^6/uL 3.94 L Hgb (13.5-17.5) g/dL 12.1 L Hct (40.0-50.0) % 36.8 L MCV (80-95) fL 93 MCH (27.0-33.0) pg 30.7 MCHC (32.0-36.0) % 32.9 RDW (11.8-14.1) % 12.1 Plt Count (130-400) 10^3/uL 271 MPV (8.0-11.0) fL 10.9 Immature Gran % 0.2 Neutrophils % 56.9 Lymphocytes % 21.6 Monocytes % 18.4 Eosinophils % 2.3 Basophils % 0.6 Nucleated RBC % (0.0-0.3) % 0.0 Absolute Neutrophils (1.2-6.7) 10^3/uL 3.54 Absolute Lymphocytes (1.2-3.4) 10^3/uL 1.34 Absolute Monocytes (0.1-0.8) 10^3/uL 1.14 H Absolute Eosinophils (0.0-0.7) 10^3/uL 0.14 Absolute Basophils (0.0-0.2) 10^3/uL 0.04 Sodium (136-145) mmol/L 136 Potassium (3.5-5.1) mmol/L 3.8 Chloride (98-107) mmol/L 97 L Carbon Dioxide (21.0-32.0) mmol/L 33.6 H Anion Gap (3-11) mmol/L 5.4 BUN (7-18) mg/dL 12 Creatinine (0.70-1.30) mg/dL 1.2 Est GFR (CKD-EPI 2020) (mL/min/1.73m2) 83.95 Glucose (74-106) mg/dL 113 H Calcium (8.5-10.1) mg/dL 9.0
[2023-03-22 08:13] VITALS: PULSE 97; O2SAT 96
== END 2023-03-22 08:20 | disposition home or self-care (01) ==
PROVIDERS: Emergency Medicine; Emergency Provider Student in an Organized Health Care Education/Training Program; PCP Family Medicine
DX: R11.0 Nausea (principal); R05.9 Cough, unspecified; R06.02 Shortness of breath; U07.1 COVID-19; N18.2 Chronic kidney disease, stage 2 (mild)
CPT/HCPCS: 36415; 80048; 96361; 96365; 96375; 99284; 71045; 85025; 99283; J0131; J2405

== ENCOUNTER 2023-03-26 22:52 | Emergency (ER) | payer OTHER, SELFPAY ==
[2023-03-26 22:58] VITALS: BP 123/41; PULSE 101; RESP 18; TEMP 38.7; O2SAT 96
--- NOTE | 2023-03-26 23:00 | DI.RAD_ITS ---
Exam(s) XR PORTABLE CHEST AP EXAM: XR PORTABLE CHEST AP CLINICAL HISTORY: cough TECHNIQUE: 2D digital imaging was performed of the chest. One image was obtained. An AP view was ob tained. COMPARISON: CR,XR XR CHEST 2V PA LATERAL from 02/24/2023 CR XR RIBS ONLY LT from 03/20/2023 CR,XR XR PORTABLE CHEST AP from 03/22/2023 FINDINGS: MEDIASTINUM: Normal. HEART: Normal. PULMONARY VASCULATURE: Normal. LUNGS: Clear. PLEURAL SPACE: No pleural effusion or pneumothorax. BONE:Within normal limits for the patient's age. OTHER FINDINGS:Normal. IMPRESSION: No acute pulmonary findings. DATA REPOSITORY: RADIATION DOSE DELIVERED:
--- NOTE | 2023-03-26 23:12 | W.ED.GENAD ---
Discharge Plan Disposition Patient Disposition: Home Condition: Stable Discharge Details Clinical Impression: COVID Primary Care Provider: Brendon Vivar ED Provider: Ricardo Crabtree Home Meds and New Rx's Prescriptions: Continued clonazepam 1 mg tablet 1 mg PO BID Qty: 56 1RF methadone 10 mg/5 mL solution 110 mg PO QAM magnesium gluconate 27 mg magnesium (500 mg) tablet 27 mg PO BID Qty: 60 3RF cyclobenzaprine 10 mg tablet 10 mg PO TID PRN (Reason: muscle spasm) Qty: 30 3RF calcitriol 0.5 mcg capsule 0.5 mcg PO BID Qty: 360 3RF Hold Instructions: Resume on 06/15/22. calcium carbonate [Tums] 200 mg calcium (500 mg) tablet,chewable 2,000 mg PO BID gabapentin 300 mg capsule 300 mg PO BID diclofenac sodium 1 % gel 4 g topical QID Qty: 100 0RF Rx Instructions: apply to single knee, ankle, foot; for foot includes sole/toes/top of foot pantoprazole [Protonix] [address] for susp in packet 40 mg PO DAILY Qty: 30 0RF ondansetron 4 mg tablet,disintegrating 4 mg PO Q8H Qty: 5 0RF Discharge Instructions Instructions: Viral Syndrome (ED) Additional Instructions: follow up with your primary care provider within 1 week if symptoms continue if you feel more ill, have severe shortness of breath or severe pain return to the emergency department Medical Decision Making 27 yo male with MEN type 1, who tested positive for covid a week ago and continues to have a cough and fevers at home, not vaccinated, who states he took nyquil tonight and shortly after felt red in the face and that he couldn't breath well so came here. He now has no symptoms other then the fever he has had for a week. HE denies to me chest pain, abdominal pain, denies ivdu. No neck stiffness. HE is caox4 on arrival, no flushed skin, stable vitals though is febrile. I suspect sensitivity to the nyquil and he states he took the recommended dose on the bottle of the nyquil so doubt anticholinergic toxicity and wouldn't expect such a rapid resolution of symptoms. Given he has no rash now, clear lungs and no gi symptoms doubt anaphylaxis. Will obtain xray to evaluate for pneumonia. HE appears well so doubt sepsis, I do suspect he's having a prolonged course of covid due to not being vaccinated. pt sleeping on reassessment with stable vitals, awakens easily to voice, xray unremarkable. Given unremarkable xray and no hypoxia, tachycardia and well appearance do not feel further testing indicated. HE is stable for d/c, return precautions given. Differential Diagnosis Differential Diagnosis: drug sensitivity, covid, pneumonia Imaging Data Radiologic Study: Attestation: I personally reviewed and interpreted this imaging study as follows: Imaging: X-Ray Radiologist's impression: no acute findings HPI General Mode of arrival: ambulatory. Date/Time Provider Initiated Documentation: 03/26/23 22:53. Limitations to Documentation: no limitations. Information obtained by: patient. History of Present Illness 27 year old M presents to the emergency department with the chief complaint of flushed sensation after taking nyquil, described as moderate, Patient started experiencing this hour(s) and it has been now resolved. No relieving factors improve symptom(s), No exacerbating factors reported . Patient notes cough. Patient did receive the following treatments prior to arrival, none Related Data Home Medications Medication Instructions Recorded Confirmed methadone 10 mg/5 mL oral solution 110 mg PO QAM 11/16/21 03/22/23 calcitriol 0.5 mcg capsule 0.5 mcg PO BID #360 caps 06/14/22 03/22/23 magnesium gluconate 27 mg 27 mg PO BID #60 tabs 11/08/22 03/22/23 magnesium (500 mg) tablet cyclobenzaprine 10 mg tablet 10 mg PO TID PRN muscle spasm #30 12/03/22 03/22/23 tabs diclofenac sodium 1 % topical gel 4 g topical QID #100 grams 12/07/22 03/22/23 calcium carbonate 200 mg calcium 2,000 mg PO BID 02/02/23 03/22/23 (500 mg) chewable tablet (Tums) gabapentin 300 mg capsule 300 mg PO BID 02/02/23 03/22/23 pantoprazole 40 mg granules 40 mg PO DAILY #30 ea 02/13/23 03/22/23 delayed-release for susp in packet (Protonix) clonazepam 1 mg tablet 1 mg PO BID #56 tabs 02/24/23 03/22/23 ondansetron 4 mg disintegrating 4 mg PO Q8H #5 tabs 03/22/23 tablet Previous Rx's Medication Instructions Recorded calcitriol 0.5 mcg capsule 0.5 mcg PO BID #360 caps 06/14/22 magnesium gluconate 27 mg 27 mg PO BID #60 tabs 11/08/22 magnesium (500 mg) tablet cyclobenzaprine 10 mg tablet 10 mg PO TID PRN muscle spasm #30 12/03/22 tabs diclofenac sodium 1 % topical gel 4 g topical QID #100 grams 12/07/22 pantoprazole 40 mg granules 40 mg PO DAILY #30 ea 02/13/23 delayed-release for susp in packet (Protonix) clonazepam 1 mg tablet 1 mg PO BID #56 tabs 02/24/23 ondansetron 4 mg disintegrating 4 mg PO Q8H #5 tabs 03/22/23 tablet Allergies Allergy/AdvReac Type Severity Reaction Status Date / Time codeine Allergy Intermediate Verified 03/22/23 06:21 Penicillins Allergy Skin Rash Verified 03/22/23 06:21 amoxicillin AdvReac Intermediate Nausea Verified 03/22/23 06:21 General Stated Complaint: Allergic ADRIANA: 4 Review of Systems All systems reviewed & are unremarkable except as noted in HPI and below Constitutional Constitutional: Reports chills, Reports fever(s) and Denies weakness Cardiovascular Cardiovascular: Denies dyspnea Respiratory Respiratory: Denies dyspnea Gastrointestinal Gastrointestinal: Denies abdominal pain, Denies nausea and Denies vomiting Musculoskeletal Musculoskeletal: Denies joint swelling Neurologic Neurologic: Denies weakness Endocrine Endocrine: Denies cold intolerance PFSH All Active Problems (Updated 03/26/23 @ 23:53 by Ricardo Crabtree MD) Contusion (Acute) COVID-19 (Acute) COVID (Acute) Abdominal pain (Acute) Viral URI (Acute) Abdominal cramping (Acute) Pain, dental (Acute) Odontalgia (Acute) Dental caries (Acute) Contusion of foot (Acute) Contusion of right chest wall (Acute) Cholelithiases (Acute) 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 ED Cellulitis (Acute) Severe anxiety with panic (Chronic) Family history of coronary arteriosclerosis (Chronic) Father of [place] at 50, mother had [place] at 42 Elevated parathyroid hormone (Acute) Suicidal ideation (Acute) Depression (Chronic) Hypocalcemia (Chronic) Hypomagnesemia (Chronic) Depression (Chronic) Primary hyperparathyroidism (Chronic) Chronic constipation (Chronic) Multiple endocrine neoplasia type I (Chronic) Iatrogenic hypocalcemia (Acute) Abdominal pain (Acute) Common bile duct dilatation (Acute) Intrahepatic bile duct dilation (Acute) Abnormal CT scan, kidney (Acute) Sphincter of Oddi dysfunction (Chronic) Therapeutic opioid induced constipation (Acute) Pulmonary nodule 1 cm or greater in diameter (Chronic) Neck pain on left side (Acute) with shoulder, upper back pain.. torticollis, radiating into left hip/leg History of electrolyte imbalance (Acute) Complex medical condition (Chronic) Serious electrolyte imbalances, with gynecomastia, possible MEN Dx, CKD and anemia with baseline anxiety and Hx PTSD. CKD (chronic kidney disease) stage 2, GFR 60-89 ml/min (Acute) GFR 64-65, with Hx FLORESITA and GFR < 45 Gynecomastia, male (Acute) b/l, per CT (Jul 2022).. Possible 2' Methadone, Clnzpm (?). Surg eval (+)/No further action. 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/20/23 per pt Adopted: No Caregiver/Support person: No Foster care: No Household members: none Housing: house Number of Children: 0 Communication Needs: None Education Level: high school Do you need help understanding health information?: Never 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 and animals: Yes (Ally) Pets and animals: dog(s) Sexually active: No Do you think of yourself as: straight/heterosexual Current gender identity: male What is your relationship status?: How often do you talk on the phone with friends or family?: twice per week How often do you get together with friends or relatives?: never Do you belong to any clubs or organized social groups?: no Panel score (0-1 are the most socially isolated patients): 0 What type of physical activity do you participate in: walking Duration: 15-30 minutes/day Frequency: 5-6 times per week Maryam/Latter Day: Islam Special maryam needs: No Seatbelt use: always Helmet use: Yes Helmet use: always Drive 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 clark 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 Exam Const General: no acute distress Orientation: alert HENMT Head: normal to inspection Ears: external ears normal General nose exam: external nose normal Mouth: moist mucous membranes Eyes General: appearance normal, both eyes and all related structures Neck Neck: normal visual inspection Resp Effort & Inspection: normal respiratory effort and able to speak in complete sentences Auscultation: clear to auscultation bilaterally Cardio Jugular venous pressure: no JVD Rate: regular rate Heart Sounds: no murmurs GI Palpation: soft and nontender Skin General skin exam: no rashes or lesions noted Neuro General: patient alert and patient oriented x3 Extrem General: normal to inspection Psych Mental Status: mental status grossly normal Course Vital Signs Vital signs: Vital Signs Temperature 38.7 C H 03/26/23 22:58 Pulse 101 H 03/26/23 22:58 Respiratory Rate 18 03/26/23 22:58 Blood Pressure 123/41 L 03/26/23 22:58 Pulse Oximetry 96 03/26/23 22:58 Temperature 38.7 C H 03/26/23 22:58 Temperature Source Temporal Artery Scan 03/26/23 22:58 Pulse 101 H 03/26/23 22:58 Respiratory Rate 18 03/26/23 22:58 Respiratory Effort Normal 03/26/23 23:02 Respiratory Pattern Normal 03/26/23 23:02 Blood Pressure 123/41 L 03/26/23 22:58 Blood Pressure Position Sitting 03/26/23 22:58 Pulse Oximetry 96 03/26/23 22:58 Oxygen Delivery Method Room Air 03/26/23 22:58 Oxygen Flow Rate 0 03/26/23 22:58 Pain Level 6 03/26/23 22:58
[2023-03-26] MEDS: Ibuprofen 600 MG TAB PO (23:20)
--- NOTE | 2023-03-26 23:59 | DI.VRAD_ITS ---
PROCEDURE INFORMATION: Exam: XR Chest Exam date and time: 03/26/2023 11:41 PM Age: 27 years old Clinical indication: Patient HX: Cough, covid + last week TECHNIQUE: Imaging protocol: Radiologic exam of the chest. Views: 1 view. COMPARISON: CR XR PORTABLE CHEST AP 03/22/2023 7:02 AM FINDINGS: Lungs: Unremarkable. No consolidation. Pleural spaces: Unremarkable. No pleural effusion. No pneumothorax. Heart/Mediastinum: Unremarkable. No cardiomegaly. Bones/joints: Unremarkable. IMPRESSION: No acute findings. Dictated and Authenticated by: Ricardo Bowens MD. Ordering:SHEMAR Silva MD
[2023-03-27 00:06] VITALS: BP 104/86; PULSE 84; RESP 18; TEMP 37.1; O2SAT 97
== END 2023-03-27 00:08 | disposition home or self-care (01) ==
PROVIDERS: Emergency Provider Emergency Medicine; PCP Family Medicine
DX: U07.1 COVID-19 (principal)
CPT/HCPCS: 99283; 71045; 99284

== ENCOUNTER 2023-03-31 14:40 | Emergency (ER) | payer OTHER, SELFPAY ==
[2023-03-31 14:42] VITALS: BP 140/84; PULSE 109; RESP 20; TEMP 37.1; O2SAT 97
--- NOTE | 2023-03-31 15:23 | ED.GENADUL_ITS ---
Discharge Plan Disposition Patient Disposition: Home Condition: Good Discharge Details Clinical Impression: Cough Primary Care Provider: Brendon Vivar ED Provider: Kimberli Martinez Home Meds and New Rx's Prescriptions: No Action clonazepam 1 mg tablet 1 mg PO BID Qty: 56 1RF methadone 10 mg/5 mL solution 100 mg PO QAM magnesium gluconate 27 mg magnesium (500 mg) tablet 27 mg PO BID Qty: 60 3RF cyclobenzaprine 10 mg tablet 10 mg PO TID PRN (Reason: muscle spasm) Qty: 30 3RF calcitriol 0.5 mcg capsule 0.5 mcg PO BID Qty: 360 3RF Hold Instructions: Resume on 06/15/22. calcium carbonate [Tums] 200 mg calcium (500 mg) tablet,chewable 2,000 mg PO BID gabapentin 300 mg capsule 300 mg PO BID diclofenac sodium 1 % gel 4 g topical QID Qty: 100 0RF Rx Instructions: apply to single knee, ankle, foot; for foot includes sole/toes/top of foot pantoprazole [Protonix] [address] for susp in packet 40 mg PO DAILY Qty: 30 0RF ondansetron 4 mg tablet,disintegrating 4 mg PO Q8H Qty: 5 0RF Discharge Instructions Instructions: Acute Cough (ED) Additional Instructions: Call your primary care doctor today to schedule an appointment within one week to follow up on your visit here. Return to the emergency department for new or worsening symptoms. Referrals: Brendon Vivar DO [Primary Care Provider] - Medical Decision Making 27yo M diagnosed with COVID 2 weeks ago presenting with persistent productive cough and body aches, symptoms initially improved but now worsening over the past several days. Slightly tachycardiac after ambualting into triage at 109, vital signs otherwise reassuring and patient is well appearing. Not septic. No hypoxia or pleurtic pain to suggest pulmonary embolism. Will not get labs. Given PO tylenol/IM tordadol for symptoms. Some concern for post-viral pneumonia given worsening symptoms though patient is afebrile; CXR independently reviewed, no focal pneumonia or pneumothorax on my view, agree with radiology read below. On reassessment remains non-toxic appearing, HR in 80's. Discharged home; discharge instructions including return precautions were r eviewed with patient who verbalized understanding. All questions were answered and they are in full agreement with the plan. Imaging Data Radiologic Study: Imaging: X-Ray Radiologist's impression: IMPRESSION: No acute pulmonary findings. HPI General Mode of arrival: ambulatory . Date/Time Provider Initiated Documentation: 03/31/23 14:51 . Limitations to Documentation: no limitations . Information obtained by: patient . HPI Narrative: 27yo M diagnosed with COVID 2 weeks ago presenting with persistent productive cough and body aches. Symptoms initially improved after a week and a half but for the past several days have been worsening. Cough is productive of greenish/brownish sputum. Cough worse with deep breathing and exertion, associated shortness of breath while coughing No pleurtic pain. No fevers or chills. Diffuse body aches, no focal pain. He is otherwise in his usual state of health with no headache, nausea, vomiting, abdominal pain, numbness, focal weakness, LE edema, or other concerns. Related Data Home Medications Medication Instructions Recorded Confirmed methadone 10 mg/5 mL oral solution 100 mg PO QAM 11/16/21 03/31/23 calcitriol 0.5 mcg capsule 0.5 mcg PO BID #360 caps 06/14/22 03/31/23 magnesium gluconate 27 mg 27 mg PO BID #60 tabs 11/08/22 03/31/23 magnesium (500 mg) tablet cyclobenzaprine 10 mg tablet 10 mg PO TID PRN muscle spasm #30 12/03/22 03/31/23 tabs diclofenac sodium 1 % topical gel 4 g topical QID #100 grams 12/07/22 03/31/23 calcium carbonate 200 mg calcium 2,000 mg PO BID 02/02/23 03/31/23 (500 mg) chewable tablet (Tums) gabapentin 300 mg capsule 300 mg PO BID 02/02/23 03/31/23 pantoprazole 40 mg granules 40 mg PO DAILY #30 ea 02/13/23 03/31/23 delayed-release for susp in packet (Protonix) clonazepam 1 mg tablet 1 mg PO BID #56 tabs 02/24/23 03/31/23 ondansetron 4 mg disintegrating 4 mg PO Q8H #5 tabs 03/22/23 03/31/23 tablet Previous Rx's Medication Instructions Recorded calcitriol 0.5 mcg capsule 0.5 mcg PO BID #360 caps 06/14/22 magnesium gluconate 27 mg 27 mg PO BID #60 tabs 11/08/22 magnesium (500 mg) tablet cyclobenzaprine 10 mg tablet 10 mg PO TID PRN muscle spasm #30 12/03/22 tabs diclofenac sodium 1 % topical gel 4 g topical QID #100 grams 12/07/22 pantoprazole 40 mg granules 40 mg PO DAILY #30 ea 02/13/23 delayed-release for susp in packet (Protonix) clonazepam 1 mg tablet 1 mg PO BID #56 tabs 02/24/23 ondansetron 4 mg disintegrating 4 mg PO Q8H #5 tabs 03/22/23 tablet Allergies Allergy/AdvReac Type Severity Reaction Status Date / Time codeine Allergy Intermediate Verified 03/31/23 14:47 Penicillins Allergy Skin Rash Verified 03/31/23 14:47 acetaminophen [From NyQuil] AdvReac Intermediate Other (See Unverified 03/31/23 14:47 Comment) amoxicillin AdvReac Intermediate Nausea Verified 03/31/23 14:47 dextromethorphan AdvReac Intermediate Other (See Unverified 03/31/23 14:47 [From NyQuil] Comment) doxylamine [From NyQuil] AdvReac Intermediate Other (See Unverified 03/31/23 14:47 Comment) pseudoephedrine [From NyQuil] AdvReac Intermediate Other (See Unverified 03/31/23 14:47 Comment) General Stated Complaint: RespSymp ADRIANA: 3 Review of Systems Narrative: see HPI PFSH All Active Problems (Updated 03/31/23 @ 15:57 by Kimberli Martinez MD) Cough (Acute) COVID (Acute) COVID-19 (Acute) Contusion (Acute) Abdominal pain (Acute) Viral URI (Acute) Abdominal cramping (Acute) Pain, dental (Acute) Odontalgia (Acute) Dental caries (Acute) Cholelithiases (Acute) 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 (Acute) Inflammatory arthritis (Acute) Costochondritis (Acute 12/13/22) [facility] Cellulitis (Acute) Severe anxiety with panic (Chronic) Family history of coronary arteriosclerosis (Chronic) Father of [place] at 50, mother had VA at 42 Elevated parathyroid hormone (Acute) Suicidal ideation (Acute) Depression (Chronic) Hypocalcemia (Chronic) Hypomagnesemia (Chronic) Depression (Chronic) Primary hyperparathyroidism (Chronic) Chronic constipation (Chronic) Multiple endocrine neoplasia type I (Chronic) Iatrogenic hypocalcemia (Acute) Abdominal pain (Acute) Common bile duct dilatation (Acute) Intrahepatic bile duct dilation (Acute) Abnormal CT scan, kidney (Acute) Sphincter of Oddi dysfunction (Chronic) Therapeutic opioid induced constipation (Acute) Pulmonary nodule 1 cm or greater in diameter (Chronic) Neck pain on left side (Acute) with shoulder, upper back pain.. torticollis, radiating into left hip/leg History of electrolyte imbalance (Acute) Complex medical condition (Chronic) Serious electrolyte imbalances, with gynecomastia, possible MEN Dx, CKD and anemia with baseline anxiety and Hx PTSD. CKD (chronic kidney disease) stage 2, GFR 60-89 ml/min (Acute) GFR 64-65, with Hx FLORESITA and GFR < 45 Gynecomastia, male (Acute) b/l, per CT (Jul 2022).. Possible 2' Methadone, Clnzpm (?). Surg eval (+)/No further action. 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/20/23 per pt Adopted: No Caregiver/Support person: No Foster care: No Household members: none Housing: house Number of Children: 0 Communication Needs: None Education Level: high school Do you need help understanding health information?: Never 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 and animals: Yes (Ally) Pets and animals: dog(s) Sexually active: No Do you think of yourself as: straight/heterosexual Current gender identity: male What is your relationship status?: How often do you talk on the phone with friends or family?: twice per week How often do you get together with friends or relatives?: never Do you belong to any clubs or organized social groups?: no Panel score (0-1 are the most socially isolated patients): 0 What type of physical activity do you participate in: walking Duration: 15-30 minutes/day Frequency: 5-6 times per week Maryam/Latter-Day: Nondenominational Special maryam needs: No Seatbelt use: always Helmet use: Yes Helmet use: always Drive 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 driver material handler: No Do you feel safe at home: Yes Do you feel safe in your relationship?: Yes Additional Social history: on methadone Exam Narrative Exam Narrative: General: Alert, well appearing, well nourished, in no acute distress. Head: Normocephalic, atraumatic Neck: Trachea midline, Neck supple. ENT: MMM. No oropharygeal lesions or exudate. Cardiac: RRR, no murmurs appreciated Resp: No respiratory distress. CTAB. Abd: Soft, non-distended, nontender : No suprapubic tenderness. No CVA tenderness. Extremities: No deformities. No peripheral edema. Neurologic: GCS 15. Moves all extremities freely against gravity Course Vital Signs Vital signs: Vital Signs Temperature 37.1 C 03/31/23 14:42 Pulse 109 H 03/31/23 14:42 Respiratory Rate 20 03/31/23 14:42 Blood Pressure 140/84 03/31/23 14:42 Pulse Oximetry 97 03/31/23 14:42 Temperature 37.1 C 03/31/23 14:42 Temperature Source Oral 03/31/23 14:42 Pulse 109 H 03/31/23 14:42 Respiratory Rate 20 03/31/23 14:42 Respiratory Effort Normal 03/31/23 15:03 Blood Pressure 140/84 03/31/23 14:42 Blood Pressure Position Sitting 03/31/23 14:42 Pulse Oximetry 97 03/31/23 14:42 Oxygen Delivery Method Room Air 03/31/23 14:42 Oxygen Flow Rate 0 03/31/23 14:42 Pain Level 7 03/31/23 14:42
[2023-03-31] MEDS: Ketorolac 15 MG/ML VIAL IM (15:36)
[2023-03-31] MEDS: Acetaminophen 325 MG TAB 650 MG PO (15:36)
--- NOTE | 2023-03-31 15:41 | DI.RAD_ITS ---
Exam(s) XR CHEST 2V PA LATERAL EXAM: XR CHEST 2V PA LATERAL CLINICAL HISTORY: 2 weeks post-covid, worsening respiratory symp TECHNIQUE: 2D digital imaging was performed of the chest. Two images were obtained. PA and lateral views were obtained. COMPARISON: CR,XR XR CHEST 2V PA LATERAL from 02/24/2023 CR,XR XR PORTABLE CHEST AP from 03/26/2023 FINDINGS: MEDIASTINUM: Normal. HEART: Normal. PULMONARY VASCULATURE: Normal. LUNGS: Clear. PLEURAL SPACE: No pleural effusion or pneumothorax. BONE:Within normal limits for the patient's age. OTHER FINDINGS:Normal. IMPRESSION: No acute pulmonary findings. DATA REPOSITORY: RADIATION DOSE DELIVERED:
[2023-03-31 16:04] VITALS: PULSE 80; O2SAT 98
== END 2023-03-31 16:14 | disposition home or self-care (01) ==
PROVIDERS: Emergency Provider Student in an Organized Health Care Education/Training Program; PCP Family Medicine
DX: R05.9 Cough, unspecified (principal); E78.5 Hyperlipidemia, unspecified; R07.89 Other chest pain; Z86.16 Personal history of COVID-19
CPT/HCPCS: 96372; 99283; 71046; J1885

== ENCOUNTER 2023-04-03 11:49 | Emergency (ER) | payer OTHER, SELFPAY ==
[2023-04-03 11:58] VITALS: BP 119/75; PULSE 96; RESP 18; TEMP 37.3; O2SAT 99
--- NOTE | 2023-04-03 12:37 | W.ED.GENAD ---
Discharge Plan Disposition Patient Disposition: Home Condition: Stable Discharge Details Clinical Impression: Pain in right upper arm Primary Care Provider: Brendon Vivar ED Provider: Lester Bundy Home Meds and New Rx's Prescriptions: Continued clonazepam 1 mg tablet 1 mg PO BID Qty: 56 1RF methadone 10 mg/5 mL solution 100 mg PO QAM magnesium gluconate 27 mg magnesium (500 mg) tablet 27 mg PO BID Qty: 60 3RF cyclobenzaprine 10 mg tablet 10 mg PO TID PRN (Reason: muscle spasm) Qty: 30 3RF calcitriol 0.5 mcg capsule 0.5 mcg PO BID Qty: 360 3RF Hold Instructions: Resume on 06/15/22. calcium carbonate [Tums] 200 mg calcium (500 mg) tablet,chewable 2,000 mg PO BID gabapentin 300 mg capsule 300 mg PO BID diclofenac sodium 1 % gel 4 g topical QID Qty: 100 0RF Rx Instructions: apply to single knee, ankle, foot; for foot includes sole/toes/top of foot pantoprazole [Protonix] [address] for susp in packet 40 mg PO DAILY Qty: 30 0RF ondansetron 4 mg tablet,disintegrating 4 mg PO Q8H Qty: 5 0RF Discharge Instructions Additional Instructions: Massage tender area regularly. Please take [id number] anti-inflammatories (i.e. Tylenol) dose according to label. Please contact your primary care physician to arrange follow-up. Return to the ER immediately for any worsening or new concerning symptoms. Referrals: Brendon Vivar DO [Primary Care Provider] - Medical Decision Making 27-year-old male who has had multiple visits to the emergency department for varying complaints, recently diagnosed with COVID, here with pain in his right upper arm. Patient has focal pain and tenderness anterior upper arm just proximal to the elbow. Bicep function intact. There are no inflammatory changes appreciated on exam. No edema. Pain and tenderness is very superficial. Patient has had recent vena puncture in antecubital space. Consider superficial phlebitis. Recommended warm compresses. I discussed this with the patient. Plan for discharge with outpatient follow-up. Usual and customary discharge instructions were reviewed. HPI General Mode of arrival: ambulatory. Date/Time Provider Initiated Documentation: 04/03/23 12:28. Information obtained by: patient. HPI Narrative: 27-year-old male here with chief complaint of right upper arm pain. Patient notes pain in his right upper arm just proximal to the elbow that started this morning and has persisted patient denies known trauma. 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 He has no associated numbness or tingling. Pain is worse with palpation of focal area. Related Data Home Medications Medication Instructions Recorded Confirmed methadone 10 mg/5 mL oral solution 100 mg PO QAM 11/16/21 04/03/23 calcitriol 0.5 mcg capsule 0.5 mcg PO BID #360 caps 06/14/22 04/03/23 magnesium gluconate 27 mg 27 mg PO BID #60 tabs 11/08/22 04/03/23 magnesium (500 mg) tablet cyclobenzaprine 10 mg tablet 10 mg PO TID PRN muscle spasm #30 12/03/22 04/03/23 tabs diclofenac sodium 1 % topical gel 4 g topical QID #100 grams 12/07/22 04/03/23 calcium carbonate 200 mg calcium 2,000 mg PO BID 02/02/23 04/03/23 (500 mg) chewable tablet (Tums) gabapentin 300 mg capsule 300 mg PO BID 02/02/23 04/03/23 pantoprazole 40 mg granules 40 mg PO DAILY #30 ea 02/13/23 04/03/23 delayed-release for susp in packet (Protonix) clonazepam 1 mg tablet 1 mg PO BID #56 tabs 02/24/23 04/03/23 ondansetron 4 mg disintegrating 4 mg PO Q8H #5 tabs 03/22/23 04/03/23 tablet Previous Rx's Medication Instructions Recorded calcitriol 0.5 mcg capsule 0.5 mcg PO BID #360 caps 06/14/22 magnesium gluconate 27 mg 27 mg PO BID #60 tabs 11/08/22 magnesium (500 mg) tablet cyclobenzaprine 10 mg tablet 10 mg PO TID PRN muscle spasm #30 12/03/22 tabs diclofenac sodium 1 % topical gel 4 g topical QID #100 grams 12/07/22 pantoprazole 40 mg granules 40 mg PO DAILY #30 ea 02/13/23 delayed-release for susp in packet (Protonix) clonazepam 1 mg tablet 1 mg PO BID #56 tabs 02/24/23 ondansetron 4 mg disintegrating 4 mg PO Q8H #5 tabs 03/22/23 tablet Allergies Allergy/AdvReac Type Severity Reaction Status Date / Time codeine Allergy Intermediate Verified 04/03/23 12:01 Penicillins Allergy Skin Rash Verified 04/03/23 12:01 acetaminophen [From NyQuil] AdvReac Intermediate Other (See Unverified 04/03/23 12:01 Comment) amoxicillin AdvReac Intermediate Nausea Verified 04/03/23 12:01 dextromethorphan AdvReac Intermediate Other (See Unverified 04/03/23 12:01 [From NyQuil] Comment) doxylamine [From NyQuil] AdvReac Intermediate Other (See Unverified 04/03/23 12:01 Comment) pseudoephedrine [From NyQuil] AdvReac Intermediate Other (See Unverified 04/03/23 12:01 Comment) General Stated Complaint: GenMedical ADRIANA: 4 Review of Systems Musculoskeletal Musculoskeletal: Reports as per HPI Integumentary/Breasts Skin/Breast: Denies rash Neurologic Neurologic: Reports as per HPI PFSH All Active Problems Pain in right upper arm (Acute) Cough (Acute) COVID (Acute) COVID-19 (Acute) Contusion (Acute) Abdominal pain (Acute) Viral URI (Acute) Abdominal cramping (Acute) Pain, dental (Acute) Odontalgia (Acute) Dental caries (Acute) Cholelithiases (Acute) 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 (Acute) Inflammatory arthritis (Acute) Costochondritis (Acute 12/13/22) [facility] ED Cellulitis (Acute) Severe anxiety with panic (Chronic) Family history of coronary arteriosclerosis (Chronic) Father of [place] at 50, mother had NE at 42 Elevated parathyroid hormone (Acute) Suicidal ideation (Acute) Depression (Chronic) Hypocalcemia (Chronic) Hypomagnesemia (Chronic) Depression (Chronic) Primary hyperparathyroidism (Chronic) Chronic constipation (Chronic) Multiple endocrine neoplasia type I (Chronic) Iatrogenic hypocalcemia (Acute) Abdominal pain (Acute) Common bile duct dilatation (Acute) Intrahepatic bile duct dilation (Acute) Abnormal CT scan, kidney (Acute) Sphincter of Oddi dysfunction (Chronic) Therapeutic opioid induced constipation (Acute) Pulmonary nodule 1 cm or greater in diameter (Chronic) Neck pain on left side (Acute) with shoulder, upper back pain.. torticollis, radiating into left hip/leg History of electrolyte imbalance (Acute) Complex medical condition (Chronic) Serious electrolyte imbalances, with gynecomastia, possible MEN Dx, CKD and anemia with baseline anxiety and Hx PTSD. CKD (chronic kidney disease) stage 2, GFR 60-89 ml/min (Acute) GFR 64-65, with Hx FLORESITA and GFR < 45 Gynecomastia, male (Acute) b/l, per CT (Jul 2022).. Possible 2' Methadone, Clnzpm (?). Surg eval (+)/No further action. 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 per pt Adopted: No Caregiver/Support person: No Foster care: No Household members: none Housing: apartment Number of Children: 0 Communication Needs: None Education Level: high school Do you need help understanding health information?: Never 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 and animals: Yes (Ally) Pets and animals: dog(s) Sexually active: No Do you think of yourself as: straight/heterosexual Current gender identity: male What is your relationship status?: How often do you talk on the phone with friends or family?: twice per week How often do you get together with friends or relatives?: never Do you belong to any clubs or organized social groups?: no Panel score (0-1 are the most socially isolated patients): 0 What type of physical activity do you participate in: walking Duration: 15-30 minutes/day Frequency: 5-6 times per week Maryam/Latter-Day: [employer] Special maryam needs: No Seatbelt use: always Helmet use: Yes Helmet use: always Drive 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 horse and wagon 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 Exam Cardio Rate: regular rate Rhythm: regular rhythm Other: 2+ right radial Skin General skin exam: no rashes or lesions noted (Right upper extremity) Neuro Other: Distal right upper extremity motor and sensation intact Extrem Right upper extremity: normal capillary refill, shoulder/upper arm Details: tenderness (Focal tenderness anterior distal upper arm over bicep), axillary nerve sensory function normal and normal ROM; no swelling, no ecchymosis and no unusual warmth, elbow/forearm Details: normal to inspection, wrist Details: normal to inspection and hand Details: normal to inspection; no edema Course Vital Signs Vital signs: Vital Signs Temperature 37.3 C 04/03/23 11:58 Pulse 96 H 04/03/23 11:58 Respiratory Rate 18 04/03/23 11:58 Blood Pressure 119/75 04/03/23 11:58 Pulse Oximetry 99 04/03/23 11:58 Temperature 37.3 C 04/03/23 11:58 Temperature Source Temporal Artery Scan 04/03/23 11:58 Pulse 96 H 04/03/23 11:58 Respiratory Rate 18 04/03/23 11:58 Respiratory Effort Normal, Non-Labored 04/03/23 12:03 Blood Pressure 119/75 04/03/23 11:58 Blood Pressure Position Sitting 04/03/23 11:58 Pulse Oximetry 99 04/03/23 11:58 Oxygen Delivery Method Room Air 04/03/23 11:58 Oxygen Flow Rate 0 04/03/23 11:58
[2023-04-03 12:42] VITALS: RESP 15
== END 2023-04-03 12:46 | disposition home or self-care (01) ==
PROVIDERS: Emergency Provider Student in an Organized Health Care Education/Training Program; PCP Family Medicine
DX: M62.81 Muscle weakness (generalized) (principal); M79.621 Pain in right upper arm
CPT/HCPCS: 99282

== ENCOUNTER 2023-04-07 19:55 | Emergency (ER) | payer OTHER, SELFPAY ==
[2023-04-07 19:57] VITALS: BP 144/108; PULSE 126; RESP 16; TEMP 37.3; O2SAT 97
[2023-04-07] MEDS: Lidocaine 5% Patch 1 PATCH TP (20:29)
--- NOTE | 2023-04-07 20:40 | ED.GENADUL_ITS ---
Discharge Plan Disposition Patient Disposition: Home Discharge Details Clinical Impression: Post-viral cough syndrome, Gynecomastia, male, Anterior chest wall pain Primary Care Provider: Brendon Vivar ED Provider: Crow Gama Home Meds and New Rx's Prescriptions: New benzonatate 200 mg capsule 200 mg PO TID PRN (Reason: cough) Qty: 30 0RF Continued clonazepam 1 mg tablet 1 mg PO BID Qty: 56 1RF methadone 10 mg/5 mL solution 100 mg PO QAM magnesium gluconate 27 mg magnesium (500 mg) tablet 27 mg PO BID Qty: 60 3RF cyclobenzaprine 10 mg tablet 10 mg PO TID PRN (Reason: muscle spasm) Qty: 30 3RF calcitriol 0.5 mcg capsule 0.5 mcg PO BID Qty: 360 3RF Hold Instructions: Resume on 06/15/22. calcium carbonate [Tums] 200 mg calcium (500 mg) tablet,chewable 2,000 mg PO BID gabapentin 300 mg capsule 300 mg PO BID diclofenac sodium 1 % gel 4 g topical QID Qty: 100 0RF Rx Instructions: apply to single knee, ankle, foot; for foot includes sole/toes/top of foot pantoprazole [Protonix] [address] for susp in packet 40 mg PO DAILY Qty: 30 0RF ondansetron 4 mg tablet,disintegrating 4 mg PO Q8H Qty: 5 0RF Discharge Instructions Instructions: Acute Cough (ED), Chest Wall Pain (ED) Additional Instructions: Please stay well-hydrated and get plenty of rest to recover from your viral illness. Upon review of your ultrasound imaging that you just had performed barely more than a month ago there was no concerning findings of your breast tissue. Please follow-up with your primary care provider as needed for reassessment or further investigation at this time this complaint does not warrant emergency investigation. If you develop persistent fever, worsening cough, or other concerns feel free to be seen at your primary care office, local urgent care or return to the emergency department as needed for reassessed Referrals: Brendon Vivar DO [Primary Care Provider] - Discharge Data Discharge Date/Time-TO BE ENTERED AT DEPARTURE: 04/07/23 20:53 Medical Decision Making Patient presenting to the emergency department with chief concern of left breast pain. He states that this has been going on for a while and this evening was coughing and started having some left breast pain. Patient is recovering from COVID which she had more than a week ago but has had continued cough malaise and some nasal congestion that he states is unchanged. He reports a subjective fever prior to arrival and took some Motrin. Patient is well familiar to myself from the department as he has had multiple visits and suffers from significant anxiety. Did discuss this with patient and patient states his main concern truly is the breast pain. He reports significant anxiety of this due to both of his parents dying from breast cancer. Physical exam shows clear lung sounds, noted tachycardia on vital signs but at time of exam did not appreciate tachycardia, left breast does have some palpable tenderness in the 9 o'clock position but no obvious mass, lymphadenopathy or other findings noted. Patient has had multiple imaging studies performed so we will review those imaging studies and pending results will place lidocaine patch over area of tenderness. Otherwise I feel that patient is continuing to recover from viral illness and I do not think there is an acute pneumonia going on or other new infection. Reviewed previous radiological imaging of multiple chest x-rays along with ultrasound imaging of the left breast for similar complaint that was performed on 02/24/2023. Radiologist noted some inflammatory lymphadenopathy but no mass or other findings are noted beyond some gynecomastia. I feel this is reassuring that patient has been imaged barely more than a month ago and no obvious concerning findings were noted at that point. Given this I do not feel that any further emergency evaluation is needed and patient recommended to follow-up with primary care provider. After discussion of diagnosis and plan of care patient has no further needs, questions, or concerns and states clear understanding to return to the emergency department for any worsening symptoms. This documentation was generated using [employer] dictation system, please disregard any oddities of phrase or misspellings. HPI General Mode of arrival: ambulatory . Date/Time Provider Initiated Documentation: 04/07/23 20:03 . Limitations to Documentation: no limitations . Information obtained by: patient and RN notes reviewed . History of Present Illness 27 year old M presents to the emergency department with the chief complaint of Left breast pain, described as moderate and similar to prior episodes, Patient started experiencing this month(s) (2) and it has been intermittent. No relieving factors improve symptom(s), Other factors that worsen symptoms (Coughing) . Patient did receive the following treatments prior to arrival, NSAID Related Data Home Medications Medication Instructions Recorded Confirmed methadone 10 mg/5 mL oral solution 100 mg PO QAM 11/16/21 04/03/23 calcitriol 0.5 mcg capsule 0.5 mcg PO BID #360 caps 06/14/22 04/03/23 magnesium gluconate 27 mg 27 mg PO BID #60 tabs 11/08/22 04/03/23 magnesium (500 mg) tablet cyclobenzaprine 10 mg tablet 10 mg PO TID PRN muscle spasm #30 12/03/22 04/03/23 tabs diclofenac sodium 1 % topical gel 4 g topical QID #100 grams 12/07/22 04/03/23 calcium carbonate 200 mg calcium 2,000 mg PO BID 02/02/23 04/03/23 (500 mg) chewable tablet (Tums) gabapentin 300 mg capsule 300 mg PO BID 02/02/23 04/03/23 pantoprazole 40 mg granules 40 mg PO DAILY #30 ea 02/13/23 04/03/23 delayed-release for susp in packet (Protonix) clonazepam 1 mg tablet 1 mg PO BID #56 tabs 02/24/23 04/03/23 ondansetron 4 mg disintegrating 4 mg PO Q8H #5 tabs 03/22/23 04/03/23 tablet benzonatate 200 mg capsule 200 mg PO TID PRN cough #30 caps 04/07/23 Previous Rx's Medication Instructions Recorded calcitriol 0.5 mcg capsule 0.5 mcg PO BID #360 caps 06/14/22 magnesium gluconate 27 mg 27 mg PO BID #60 tabs 11/08/22 magnesium (500 mg) tablet cyclobenzaprine 10 mg tablet 10 mg PO TID PRN muscle spasm #30 12/03/22 tabs diclofenac sodium 1 % topical gel 4 g topical QID #100 grams 12/07/22 pantoprazole 40 mg granules 40 mg PO DAILY #30 ea 02/13/23 delayed-release for susp in packet (Protonix) clonazepam 1 mg tablet 1 mg PO BID #56 tabs 02/24/23 ondansetron 4 mg disintegrating 4 mg PO Q8H #5 tabs 03/22/23 tablet benzonatate 200 mg capsule 200 mg PO TID PRN cough #30 caps 04/07/23 Allergies Allergy/AdvReac Type Severity Reaction Status Date / Time codeine Allergy Intermediate Verified 04/03/23 12:01 Penicillins Allergy Skin Rash Verified 04/03/23 12:01 acetaminophen [From NyQuil] AdvReac Intermediate Other (See Unverified 04/03/23 12:01 Comment) amoxicillin AdvReac Intermediate Nausea Verified 04/03/23 12:01 dextromethorphan AdvReac Intermediate Other (See Unverified 04/03/23 12:01 [From NyQuil] Comment) doxylamine [From NyQuil] AdvReac Intermediate Other (See Unverified 04/03/23 12:01 Comment) pseudoephedrine [From NyQuil] AdvReac Intermediate Other (See Unverified 04/03/23 12:01 Comment) General Stated Complaint: Chest/Rib ADRIANA: 3 Review of Systems Constitutional Constitutional: Reports fever(s) and Reports headache(s) ENT Ears, Nose, Mouth, and Throat: Reports headache(s), Reports nasal congestion, Reports neck pain and Reports sore throat Cardiovascular Cardiovascular: Denies chest pain and Reports dyspnea Respiratory Respiratory: Reports cough and Reports dyspnea Gastrointestinal Gastrointestinal: Denies abdominal pain, Denies nausea and Denies vomiting Musculoskeletal Musculoskeletal: Reports neck pain Integumentary/Breasts Skin/Breast: Reports as per HPI, Reports breast pain and Reports breast mass Neurologic Neurologic: Reports headache(s) PFSH All Active Problems Anterior chest wall pain (Acute) Post-viral cough syndrome (Acute) Pain in right upper arm (Acute) Cough (Acute) COVID (Acute) COVID-19 (Acute) Contusion (Acute) Viral URI (Acute) Abdominal cramping (Acute) Pain, dental (Acute) Odontalgia (Acute) Dental caries (Acute) Cholelithiases (Acute) 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 (Acute) Inflammatory arthritis (Acute) Costochondritis (Acute 12/13/22) [facility] Cellulitis (Acute) Severe anxiety with panic (Chronic) Family history of coronary arteriosclerosis (Chronic) Father of VA at 50, mother had VA at 42 Elevated parathyroid hormone (Acute) Suicidal ideation (Acute) Depression (Chronic) Hypocalcemia (Chronic) Hypomagnesemia (Chronic) Depression (Chronic) Primary hyperparathyroidism (Chronic) Chronic constipation (Chronic) Multiple endocrine neoplasia type I (Chronic) Iatrogenic hypocalcemia (Acute) Abdominal pain (Acute) Common bile duct dilatation (Acute) Intrahepatic bile duct dilation (Acute) Abnormal CT scan, kidney (Acute) Sphincter of Oddi dysfunction (Chronic) Therapeutic opioid induced constipation (Acute) Pulmonary nodule 1 cm or greater in diameter (Chronic) Neck pain on left side (Acute) with shoulder, upper back pain.. torticollis, radiating into left hip/leg History of electrolyte imbalance (Acute) Complex medical condition (Chronic) Serious electrolyte imbalances, with gynecomastia, possible MEN Dx, CKD and anemia with baseline anxiety and Hx PTSD. CKD (chronic kidney disease) stage 2, GFR 60-89 ml/min (Acute) GFR 64-65, with Hx FLORESITA and GFR < 45 Gynecomastia, male (Acute) b/l, per CT (Jul 2022).. Possible 2' Methadone, Clnzpm (?). Surg eval (+)/No further action. 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 per pt Adopted: No Caregiver/Support person: No Foster care: No Household members: none Housing: apartment Number of Children: 0 Communication Needs: None Education Level: high school Do you need help understanding health information?: Never 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 and animals: Yes (Ally) Pets and animals: dog(s) Sexually active: No Do you think of yourself as: straight/heterosexual Current gender identity: male What is your relationship status?: How often do you talk on the phone with friends or family?: twice per week How often do you get together with friends or relatives?: never Do you belong to any clubs or organized social groups?: no Panel score (0-1 are the most socially isolated patients): 0 What type of physical activity do you participate in: walking Duration: 15-30 minutes/day Frequency: 5-6 times per week Maryam/Quaker: Voodoo Special maryam needs: No Seatbelt use: always Helmet use: Yes Helmet use: always Drive 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 lumber 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 Exam Const General: cooperative, no acute distress and not ill appearing Orientation: alert, awake and oriented x3 HENMT Mouth: moist mucous membranes Chest Chest: abnormal inspection of the chest Breast inspection: normal inspection of the breasts, normal inspection of the axillae and abnormal inspection of the breast left upper inner normal nipple, normal areola and other (Slight palpable leg tender tissue in the vein 9 o'clock position medial from the nipple) Breast palpation: normal palpation of the axillae and no axillary lym phadenopathy Resp Effort & Inspection: normal respiratory effort, able to speak in complete sentences and no respiratory distress Cardio Rate: regular rate Rhythm: regular rhythm Heart Sounds: S1 normal and S2 normal Skin General skin exam: no rashes or lesions noted Neuro General: patient alert, patient awake, patient oriented x3 and moves all extremities Course Vital Signs Vital signs: Vital Signs Temperature 37.3 C 04/07/23 19:57 Pulse 126 H 04/07/23 19:57 Respiratory Rate 16 04/07/23 19:57 Blood Pressure 144/108 H 04/07/23 19:57 Pulse Oximetry 97 04/07/23 19:57 Temperature 37.3 C 04/07/23 19:57 Temperature Source Tympanic 04/07/23 19:57 Pulse 126 H 04/07/23 19:57 Respiratory Rate 16 04/07/23 19:57 Respiratory Effort Normal 04/07/23 20:01 Respiratory Depth Normal 04/07/23 20:01 Respiratory Pattern Normal 04/07/23 20:01 Blood Pressure 144/108 H 04/07/23 19:57 Blood Pressure Position Sitting 04/07/23 19:57 Pulse Oximetry 97 04/07/23 19:57 Oxygen Delivery Method Room Air 04/07/23 19:57 Oxygen Flow Rate 0 04/07/23 19:57 Pain Level 7 04/07/23 19:57
[2023-04-07] MEDS: Benzonatate 100 MG CAP PO (20:47)
== END 2023-04-07 20:53 | disposition home or self-care (01) ==
LOC: ER 20:42
PROVIDERS: Emergency Provider Nurse Practitioner Family; PCP Family Medicine
DX: R05.9 Cough, unspecified (principal); U09.9 Post COVID-19 condition, unspecified; N62 Hypertrophy of breast; R07.89 Other chest pain; F41.9 Anxiety disorder, unspecified; F32.A Depression, unspecified; E78.5 Hyperlipidemia, unspecified; Z79.899 Other long term (current) drug therapy; N18.2 Chronic kidney disease, stage 2 (mild)
CPT/HCPCS: 99283; 99284

== ENCOUNTER 2023-04-11 17:23 | Emergency (ER) | payer OTHER, SELFPAY ==
[2023-04-11 17:39] VITALS: BP 141/87; PULSE 97; RESP 20; TEMP 37.2; O2SAT 96
--- NOTE | 2023-04-11 18:30 | DI.CT_ITS ---
Exam(s) CT ABDOMEN PELVIS W EXAM: CT ABDOMEN PELVIS W CLINICAL HISTORY: RUQ and epigastric pain, hx gallstones. TECHNIQUE: Imaging Protocol: Axial computed tomography images with coronal and sagittal reformatted images were created and reviewed CONTRAST MATERIAL: Intravenous: Omnipaque 350 Contrast volume:100 ml Oral: / no COMPARISON: CT CT CHEST PE ABD PELVIS W from 08/11/[address] ABDOMEN PELVIS W from 11/16/2022 FINDINGS: ABDOMEN and PELVIS: Lung Bases: Normal where visualized. Liver: Normal density. No measurable mass. Gallbladder and biliary tract: Mild intrahepatic dilatation, increasing from prior exam. Dilatation of common bile duct which tapers in the head of the pancreas. No visible obstructing stone. Common bile duct measures 7 millimeters. A stone is visible in the neck of the gallbladder. No gallbladd er wall thickening or abnormal distension. No common duct stone visible. Pancreas: Normal density. No abnormal calcifications or inflammatory process. No evidence of mass. Spleen: Normal. Kidneys: Normal size, contour and axis. No radiodense stones. No obstructive uropathy. No suspicious masses seen. Adrenal glands: No masses seen. Vasculature: Abdominal aorta non-dilated. Soft tissues: Unremarkable. Bladder: Nearly empty. Not well evaluated.. Bowel: No obstruction. No bowel wall thickening. Appendix normal.Moderate to increased stool. Peritoneal cavity: No ascites. No focal collection or mesenteric inflammatory response. Bones: Unremarkable for age. Reproductive organs: Within normal limits. Lymph nodes: Unremarkable. IMPRESSION:: Mild intra and extrahepatic ductal dilatation without visible obstructing stone or mass . A gallstone is faintly visible within the neck of the gallbladder. No abnormal gallbladder disten tion or wall thickening. Ultrasound could be considered for further evaluation. RADIATION DOSE DELIVERED: Total DLP DATA REPOSITORY: All CT scans at this facility are submitted to the National Radiology Data Registry (NRDR) Dose Index Registry (DIR) with the [employer] (A[employer]). RADIATION OPTIMIZATION: All CT scans at this facility use at least one of these dose optimization te chniques: automated exposure control; mA and/or kV adjustment per patient size (includes targeted exa ms where dose is matched to clinical indication); or iterative reconstruction.
--- NOTE | 2023-04-11 18:39 | ED.GENADUL_ITS ---
Discharge Plan Disposition Patient Disposition: Home Condition: Good Discharge Details Clinical Impression: Common bile duct dilatation, Acid reflux disease, Abdominal pain Primary Care Provider: Brendon Vivar ED Provider: Steph Jones Home Meds and New Rx's Prescriptions: Continued clonazepam 1 mg tablet 1 mg PO BID Qty: 56 1RF methadone 10 mg/5 mL solution 100 mg PO QAM magnesium gluconate 27 mg magnesium (500 mg) tablet 27 mg PO BID Qty: 60 3RF cyclobenzaprine 10 mg tablet 10 mg PO TID PRN (Reason: muscle spasm) Qty: 30 3RF calcitriol 0.5 mcg capsule 0.5 mcg PO BID Qty: 360 3RF Hold Instructions: Resume on 06/15/22. calcium carbonate [Tums] 200 mg calcium (500 mg) tablet,chewable 2,000 mg PO BID gabapentin 300 mg capsule 300 mg PO BID benzonatate 200 mg capsule 200 mg PO TID PRN (Reason: cough) Qty: 30 0RF diclofenac sodium 1 % gel 4 g topical QID Qty: 100 0RF Rx Instructions: apply to single knee, ankle, foot; for foot includes sole/toes/top of foot pantoprazole [Protonix] [address] for susp in packet 40 mg PO DAILY Qty: 30 0RF ondansetron 4 mg tablet,disintegrating 4 mg PO Q8H Qty: 5 0RF Discharge Instructions Instructions: GERD (Gastroesophageal Reflux Disease) (ED), Abdominal Pain (ED) Additional Instructions: As we discussed, your labs and imaging are reassuring here today. There c ontinues to be the change in your biliary tree where your gallbladder is. However, this seems to be chronic and as your pain improved with numbing your esophagus and stomach, I believe this is more associated with your acid reflux. Please take your acid reflux medications, not taking those today and eating irritating foods is likely what caused the increase in your pain. If you develop fever/chills, increased pain, inability stay hydrated and new/worsening symptom please seek care urgently once again. Otherwise, please follow-up with your primary care next 2 weeks for reevaluation. Referrals: Brendon Vivar DO [Primary Care Provider] - Discharge Data Discharge Date/Time-TO BE ENTERED AT DEPARTURE: 04/11/23 20:55 Medical Decision Making Patient is a pleasant 27-year-old male, well-known to myself in the department, presenting today with chief complaint of severe abdominal pain. He reports that abdominal pain began about half an hour after eating candy. States the pain has been severe and radiating into the back. Primarily of the right upper quadrant. He does report that he is scheduled to have his gallbladder out electively associated with gallstones. He denies any vomiting but states that he did initially have some nausea. The pain has let up to some degree but continues to be fairly significant. Had bowel movement today which was normal, no blood in his stool. No change in urinary habits. No previous abdominal surgeries. On exam, patient appears nontoxic. He does appear anxious. Exam of the abdomen significant for epigastric discomfort with palpation but no peritoneal findings, guarding or rebound. No pain with palpation over the right upper quadrant although he did state that he had some pain in this region earlier. Negative Cedillo sign. Will obtain baseline labs. Considered pancreatitis, acute cholecystitis, increased symptoms of his acid reflux. He did not take his medications this morning so we will give him a dose of Protonix as the lack medication as well as his dietary changes today may be the source of his increased pain. Labs reviewed. No leukocytosis. Mild anemia of 12.2 which is baseline for the patient. CMP significant for creatinine elevated at 1.5, this has been elevated in the past. He is receiving IV fluids and has been able to tolerate oral fluids well. His AST is slightly elevated but other LFTs within normal limits. The AST has been elevated in the past. Imaging reviewed by radiologist: FINDINGS: Liver: Mild intrahepatic biliary ductal dilatation No mass. Gallbladder and bile ducts: Mild dilatation of the common bile duct No calcified stones. Pancreas: Normal. No ductal dilation. Spleen: Normal. No splenomegaly. Adrenal glands: Normal. No mass. Kidneys and ureters: Left renal cyst No hydronephrosis. Stomach and bowel: Moderate stool in the colon. No obstruction. No mucosal thickening. Appendix: No evidence of appendicitis. Intraperitoneal space: Unremarkable. No free air. No significant fluid collection. Vasculature: Unremarkable. No abdominal aortic aneurysm. Lymph nodes: Unremarkable. No enlarged lymph nodes. Urinary bladder: Unremarkable as visualized. Reproductive: Unremarkable as visualized. Bones/joints: Unremarkable. No acute fracture. Soft tissues: Unremarkable. IMPRESSION: No calcified stones. Mild biliary ductal dilatation as described. Correlation with liver function tests may be helpful. Consider right upper quadrant ultrasound Question constipation Discussed these findings with the patient. Pain gone after GI cocktail. Would like to go home. He has had a dilated biliary tree in the past. We do no have US on this evening. Given his pain improved after GI cocktail, will hold off on US or other emergent evaluation at this time. Encouraged that he take his medication as previously prescribed. Encouraged that he stick with dietary regimen which seems to reduce his chronic abdominal pain. Strict return precautions were discussed. He has upcoming elective cholecystectomy planned. If he does develop postprandial pain or pain along the right side he will return more urgently. Again, his history, exam and improvement with a GI cocktail have been more concerned for acid reflux over gallbladder pathology. All of his qu estions and concerns were addressed and he is agreement this plan. [facility] General Date/Time Provider Initiated Documentation: 04/11/23 17:52 . Limitations to Documentation: no limitations . Information obtained by: patient, RN notes reviewed and old records reviewed . History of Present Illness 27 year old M presents to the emergency department with the chief complaint of epigastric pain, described as severe and similar t o prior episodes (feels similar to when he had acid reflux in the past, did not take his omeprazole today), with intensity rated at 10. Quality is described as stabbing, and is localized to the abdomen. Patient reports no radiation. Patient started experiencing this hour(s) (1600) and it has been constant. No relieving factors improve symptom(s), No exacerbating factors reported . Patient notes no other symptoms.. Patient did receive the following treatments prior to arrival, other (tums) Related Data Home Medications Medication Instructions Recorded Confirmed methadone 10 mg/5 mL oral solution 100 mg PO QAM 11/16/21 04/11/23 calcitriol 0.5 mcg capsule 0.5 mcg PO BID #360 caps 06/14/22 04/11/23 magnesium gluconate 27 mg 27 mg PO BID #60 tabs 11/08/22 04/11/23 magnesium (500 mg) tablet cyclobenzaprine 10 mg tablet 10 mg PO TID PRN muscle spasm #30 12/03/22 04/11/23 tabs diclofenac sodium 1 % topical gel 4 g topical QID #100 grams 12/07/22 04/11/23 calcium carbonate 200 mg calcium 2,000 mg PO BID 02/02/23 04/11/23 (500 mg) chewable tablet (Tums) gabapentin 300 mg capsule 300 mg PO BID 02/02/23 04/11/23 pantoprazole 40 mg granules 40 mg PO DAILY #30 ea 02/13/23 04/11/23 delayed-release for susp in packet (Protonix) clonazepam 1 mg tablet 1 mg PO BID #56 tabs 02/24/23 04/11/23 ondansetron 4 mg disintegrating 4 mg PO Q8H #5 tabs 03/22/23 04/11/23 tablet benzonatate 200 mg capsule 200 mg PO TID PRN cough #30 caps 04/07/23 04/11/23 Previous Rx's Medication Instructions Recorded calcitriol 0.5 mcg capsule 0.5 mcg PO BID #360 caps 06/14/22 magnesium gluconate 27 mg 27 mg PO BID #60 tabs 11/08/22 magnesium (500 mg) tablet cyclobenzaprine 10 mg tablet 10 mg PO TID PRN muscle spasm #30 12/03/22 tabs diclofenac sodium 1 % topical gel 4 g topical QID #100 grams 12/07/22 pantoprazole 40 mg granules 40 mg PO DAILY #30 ea 02/13/23 delayed-release for susp in packet (Protonix) clonazepam 1 mg tablet 1 mg PO BID #56 tabs 02/24/23 ondansetron 4 mg disintegrating 4 mg PO Q8H #5 tabs 03/22/23 tablet benzonatate 200 mg capsule 200 mg PO TID PRN cough #30 caps 04/07/23 Allergies Allergy/AdvReac Type Severity Reaction Status Date / Time codeine Allergy Intermediate Verified 04/11/23 17:46 Penicillins Allergy Skin Rash Verified 04/11/23 17:46 amoxicillin AdvReac Intermediate Nausea Verified 04/11/23 17:46 dextromethorphan AdvReac Intermediate Other (See Unverified 04/11/23 17:46 [From NyQuil] Comment) doxylamine [From NyQuil] AdvReac Intermediate Other (See Unverified 04/11/23 17:46 Comment) pseudoephedrine [From NyQuil] AdvReac Intermediate Other (See Unverified 04/11/23 17:46 Comment) General Stated Complaint: Abd Prob ADRIANA: 3 Review of Systems Constitutional Constitutional: Reports as per HPI, Denies chills, Denies fatigue, Denies fever(s) and Denies headache(s) ENT Ears, Nose, Mouth, and Throat: Denies headache(s) Cardiovascular Cardiovascular: Reports as per HPI, Denies chest pain and Denies dyspnea Respiratory Respiratory: Reports as per HPI, Denies cough and Denies dyspnea Gastrointestinal Gastrointestinal: Reports as per HPI Genitourinary Genitourinary: Denies system reviewed and no additional complaints, except as documented (patient denies any change in urinary habits) Musculoskeletal Musculoskeletal: Reports as per HPI and Denies back pain Integumentary/Breasts Skin/Breast: Reports as per HPI and Denies rash Neurologic Neurologic: Reports as per HPI and Denies headache(s) Endocrine Endocrine: Denies fatigue [facility] All Active Problems (Updated 04/11/23 @ 20:47 by ANDREW Magaña) Acid reflux disease (Chronic) Anterior chest wall pain (Acute) Post-viral cough syndrome (Acute) Pain in right upper arm (Acute) Cough (Acute) COVID (Acute) COVID-19 (Acute) Contusion (Acute) Pain, dental (Acute) Odontalgia (Acute) Dental caries (Acute) Cholelithiases (Acute) 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 (Acute) Inflammatory arthritis (Acute) Costochondritis (Acute 12/13/22) [facility] ED Cellulitis (Acute) Severe anxiety with panic (Chronic) Family history of coronary arteriosclerosis (Chronic) Father of NH at 50, mother had NH at 42 Elevated parathyroid hormone (Acute) Suicidal ideation (Acute) Depression (Chronic) Hypocalcemia (Chronic) Hypomagnesemia (Chronic) Depression (Chronic) Primary hyperparathyroidism (Chronic) Chronic constipation (Chronic) Multiple endocrine neoplasia type I (Chronic) Iatrogenic hypocalcemia (Acute) Abdominal pain (Acute) Common bile duct dilatation (Acute) Intrahepatic bile duct dilation (Acute) Abnormal CT scan, kidney (Acute) Sphincter of Oddi dysfunction (Chronic) Therapeutic opioid induced constipation (Acute) Pulmonary nodule 1 cm or greater in diameter (Chronic) Neck pain on left side (Acute) with shoulder, upper back pain.. torticollis, radiating into left hip/leg History of electrolyte imbalance (Acute) Complex medical condition (Chronic) Serious electrolyte imbalances, with gynecomastia, possible MEN Dx, CKD and anemia with baseline anxiety and Hx PTSD. CKD (chronic kidney disease) stage 2, GFR 60-89 ml/min (Acute) GFR 64-65, with Hx FLORESITA and GFR < 45 Gynecomastia, male (Acute) b/l, per CT (Jul 2022).. Possible 2' Methadone, Clnzpm (?). Surg eval (+)/No further action. 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 03/20/23 per pt Adopted: No Caregiver/Support person: No Foster care: No Household members: none Housing: apartment Number of Children: 0 Communication Needs: None Education Level: high school Do you need help understanding health information?: Never 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 and animals: Yes (Ally) Pets and animals: dog(s) Sexually active: No Do you think of yourself as: straight/heterosexual Current gender identity: male What is your relationship status?: How often do you talk on the phone with friends or family?: twice per week How often do you get together with friends or relatives?: never Do you belong to any clubs or organized social groups?: no Panel score (0-1 are the most socially isolated patients): 0 What type of physical activity do you participate in: walking Duration: 15-30 minutes/day Frequency: 5-6 times per week Maryam/Nondenominational: Rastafari Special maryam needs: No Seatbelt use: always Helmet use: Yes Helmet use: always Drive 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 food mobile 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 Exam Const General: cooperative, healthy appearing, comfortable, no acute distress, well developed and anxious Nutritional Appearance: well nourished and overweight Orientation: alert and awake [facility] Head: normal to inspection Mouth: moist mucous membranes Resp Effort & Inspection: normal respiratory effort, able to speak in complete sentences and no respiratory distress Auscultation: clear to auscultation bilaterally, no rales, no rhonchi and no wheezes Cardio Rate: regular rate Rhythm: regular rhythm Heart Sounds: S1 normal and S2 normal GI Inspection: normal to inspection Palpation: soft, no hepatosplenomegaly, not firm, no guarding, no hernias, no masses, not rigid and tender in the epigastrum; not in the RUQ, Cedillo's sign negative and with no rebound tenderness Percussion: normal to percussion Auscultation: normal bowel sounds Back/Spine/Pelvis Back: no CVA tenderness Skin General skin exam: no rashes or lesions noted Trauma: no lacerations or abrasions Neuro General: patient alert and patient awake Cognition: normal cognition Speech: speech normal Gait: normal gait Psych Appearance: grossly normal and well kempt Mental Status: mental status grossly normal Speech and Movement: speech and movement normal Course Vital Signs Vital signs: Vital Signs Temperature 37.2 C 04/11/23 17:39 Pulse 97 H 04/11/23 17:39 Respiratory Rate 20 04/11/23 17:39 Blood Pressure 141/87 H 04/11/23 17:39 Pulse Oximetry 96 04/11/23 17:39 Temperature 37.2 C 04/11/23 17:39 Pulse 97 H 04/11/23 17:39 Respiratory Rate 20 04/11/23 17:39 Respiratory Effort Normal, Non-Labored 04/11/23 17:43 Blood Pressure 141/87 H 04/11/23 17:39 Pulse Oximetry 96 04/11/23 17:39 Pain Level 10 04/11/23 18:26
[2023-04-11] MEDS: ACETAMINOPHEN 1,000 MG/100 ML BTL 400 MG IVPB (19:22)
[2023-04-11] MEDS: Pantoprazole 40 MG VIAL IVP (19:22)
[2023-04-11] MEDS: Mylanta Suspension 30 ML CUP PO (19:30)
[2023-04-11 19:32] LABS: Abs Immature Grans 0.03 10^3/uL (0.0-0.06); Absolute Basophil Count 0.05 10^3/uL (0.0-0.2); Absolute Eosinophil Count 0.19 10^3/uL (0.0-0.7); Absolute Lymphocyte Count 1.68 10^3/uL (1.2-3.4); Absolute Monocyte Count 0.91 10^3/uL (0.1-0.8); Absolute Neutrophil Count 5.84 10^3/uL (1.2-6.7); Basophils % 0.6; Eosinophils % 2.2; HCT 35.8 % (40.0-50.0); HGB 12.2 g/dL (13.5-17.5); Immature Grans % 0.3; Lymphocytes % 19.3; MCH 30.7 pg (27.0-33.0); MCHC 34.1 % (32.0-36.0); MCV 90 fL (80-95); MPV 11.7 fL (8.0-11.0); Monocytes % 10.5; Neutrophils % 67.1; Platelet Count 280 10^3/uL (130-400); RBC 3.97 10^6/uL (4.36-5.78); RDW-SD 39.1 fL
[2023-04-11] MEDS: Omnipaque 350 MG/ML 100 ML BTL IJ (19:51)
[2023-04-11 19:53] LABS: ALT 48 U/L (16-63); AST 51 U/L (15-37); Albumin 3.8 g/dL (3.4-5.0); Alkaline Phosphatase 112 U/L (46-116); Anion Gap 4.9 mmol/L (3-11); BUN 19 mg/dL (7-18); Bilirubin, Total 0.2 mg/dL (0.2-1.0); CO2 33.1 mmol/L (21.0-32.0); CREATININE 1.5 mg/dL (0.70-1.30); Calcium 9.7 mg/dL (8.5-10.1); Chloride 101 mmol/L (98-107); Estimated GFR 64.23 (mL/min/1.73m2); Glucose 102 mg/dL (74-106); Lipase 28 U/L (16-77); Potassium 3.6 mmol/L (3.5-5.1); Sodium 139 mmol/L (136-145); Total Protein 8.4 g/dL (6.4-8.2)
[2023-04-11] MEDS: Normal Saline - Diluent 50 ML VIAL IJ (19:53)
[2023-04-11 19:56] LABS: Bilirubin Negative (Negative); Blood Trace-intact (Negative); Clarity Clear (Clear); Glucose Negative (Negative); Ketones Negative (Negative); Leukocyte Esterase Negative (Negative); Nitrite Negative (Negative); Urobilinogen 0.2 mg/dL (Up to 0.2)
[2023-04-11 20:02] LABS: Bacteria Negative HPF (Negative); Crystals Negative HPF (Negative); Epithelial Cells Rare HPF (Negative); RBC Negative HPF (0-2); WBC Negative HPF (0-5)
[2023-04-11 20:03] LABS: C & S Indicated? No; Casts Negative LPF (Negative); Mucus Negative (Negative)
[2023-04-11] MEDS: Lactated Ringers 1,000 ML 1000 ML IV (20:12)
--- NOTE | 2023-04-11 20:15 | DI.VRAD_ITS ---
PROCEDURE INFORMATION: Exam: CT Abdomen And Pelvis With Contrast Exam date and time: 04/11/2023 7:53 PM Age: 27 years old Clinical indication: Other: Ruq and epigastric pain, HX gallstones TECHNIQUE: Imaging protocol: Computed tomography of the abdomen and pelvis with contrast. Contrast material: 350; Contrast volume: 100 ml; Contrast route: INTRAVENOUS (IV); COMPARISON: CT ABDOMEN PELVIS W 11/16/2022 8:35 AM FINDINGS: Liver: Mild intrahepatic biliary ductal dilatation No mass. Gallbladder and bile ducts: Mild dilatation of the common bile duct No calcified stones. Pancreas: Normal. No ductal dilation. Spleen: Normal. No splenomegaly. Adrenal glands: Normal. No mass. Kidneys and ureters: Left renal cyst No hydronephrosis. Stomach and bowel: Moderate stool in the colon. No obstruction. No mucosal thickening. Appendix: No evidence of appendicitis. Intraperitoneal space: Unremarkable. No free air. No significant fluid collection. Vasculature: Unremarkable. No abdominal aortic aneurysm. Lymph nodes: Unremarkable. No enlarged lymph nodes. Urinary bladder: Unremarkable as visualized. Reproductive: Unremarkable as visualized. Bones/joints: Unremarkable. No acute fracture. Soft tissues: Unremarkable. IMPRESSION: No calcified stones. Mild biliary ductal dilatation as described. Correlation with liver function tests may be helpful. Consider right upper quadrant ultrasound Question constipation Dictated and Authenticated by: Kameron Granger MD. Ordering:MANN Choi MD
[2023-04-11 20:55] VITALS: BP 142/77; PULSE 67; RESP 16; TEMP 37.2; O2SAT 100
== END 2023-04-11 20:55 | disposition home or self-care (01) ==
PROVIDERS: Emergency Provider Physician Assistant; PCP Family Medicine
DX: K83.8 Other specified diseases of biliary tract; K21.9 Gastro-esophageal reflux disease without esophagitis; G89.29 Other chronic pain; R10.13 Epigastric pain
CPT/HCPCS: 80053; 83690; 96361; 96374; 99285; 74177; 81003; 81015; 83735; 85025; 99284; J0131; J3490

== ENCOUNTER 2023-04-13 17:48 | Emergency (ER) | payer OTHER, SELFPAY ==
--- NOTE | 2023-04-13 17:45 | RT.EKG_ITS ---
APPROVED REPORT Exam: Resting ECG Reason for Exam: chest pain Patient Location: E HR:93 bpm ECG Measurements Heart Rate 93 AXIS WV 170 P 49 QRSd 89 QRS 30 QT 367 T 31 QTc 456 Conclusion Sinus rhythm rate 93 normal axis no change from prior
[2023-04-13 17:51] VITALS: BP 132/92; PULSE 88; RESP 16; TEMP 36.6; O2SAT 99
--- NOTE | 2023-04-13 18:11 | ED.GENADUL_ITS ---
Discharge Plan Disposition Patient Disposition: Home Discharge Details Clinical Impression: Chest pain Primary Care Provider: Brendon Vivar ED Provider: Jeovany Elias Home Meds and New Rx's Prescriptions: No Action clonazepam 1 mg tablet 1 mg PO BID Qty: 56 1RF methadone 10 mg/5 mL solution 100 mg PO QAM magnesium gluconate 27 mg magnesium (500 mg) tablet 27 mg PO BID Qty: 60 3RF cyclobenzaprine 10 mg tablet 10 mg PO TID PRN (Reason: muscle spasm) Qty: 30 3RF calcitriol 0.5 mcg capsule 0.5 mcg PO BID Qty: 360 3RF Hold Instructions: Resume on 06/15/22. calcium carbonate [Tums] 200 mg calcium (500 mg) tablet,chewable 2,000 mg PO BID gabapentin 300 mg capsule 300 mg PO BID benzonatate 200 mg capsule 200 mg PO TID PRN (Reason: cough) Qty: 30 0RF diclofenac sodium 1 % gel 4 g topical QID Qty: 100 0RF Rx Instructions: apply to single knee, ankle, foot; for foot includes sole/toes/top of foot pantoprazole [Protonix] [address] for susp in packet 40 mg PO DAILY Qty: 30 0RF ondansetron 4 mg tablet,disintegrating 4 mg PO Q8H Qty: 5 0RF Discharge Instructions Instructions: Chest Pain (ED) Additional Instructions: chest pain unlikely to be from your heart today. keep your primary care appointment return wtih any new symptoms or concerns Medical Decision Making Emergent evaluation of chest pain. Initial differential includes ACS, doubt pulmonary embolism, doubt aortic pathology. Patient is hemodynamically stable with a normal blood pressure. Is chest pain-free at this time. His EKG is not acutely ischemic. Given his medical and family history, will check lab work and continue cardiac monitoring 1900: Lab work reviewed. Anemia baseline. Troponin not elevated. CKD baseline. He has a slight elevation in his LFTs but is bilirubin is normal. I reviewed his prior lab work and prior abdominal imaging. He does have a history of gallstones however I doubt cholecystitis given his benign abdominal exam and no right upper quadrant tenderness. His bilirubin being normal makes me have a lower suspicion for an obstructive etiology. He has follow-up with his PCP upcoming. I advised return precautions including symptom worsening, not tolerating p.o., fevers. Medical Records Medical records reviewed: Yes I reviewed the patient's medical records. Medical records narrative: Patient has extensive medical problem list and multiple emergency department visits Lab Data Lab results reviewed: Yes I reviewed the patient's lab results. ECG Data Attestation: I personally reviewed and interpreted this ECG (s) as follows: Prior ECG tracings: available for review Interpretation: Sinus 93, normal axis, no ST segment changes, compared to prior, no changes HPI General Date/Time Provider Initiated Documentation: 04/13/23 17:48 . Limitations to Documentation: no limitations . Information obtained by: patient . HPI Narrative: 27-year-old gentleman with past medical history of anxiety, GERD, presents for evaluation of chest pain. He reports that he was evaluated in the emergency department 2 days ago for abdominal pain. He reports that since then his epigastric pain has been rising higher. He states that today he took a nap and when he woke up he had pain in the middle of his chest. He states that it radiated up to his jaw and into his back. He states that when he has any chest pain he gets very anxious and nervous. He states that he has a strong family history of coronary disease. He is pain lasted for about an hour. Not associated with diaphoresis, nausea, shortness of breath. He states that he is always short of breath because he is out of shape. He states that he does not really have pain at this time. Related Data Home Medications Medication Instructions Recorded Confirmed methadone 10 mg/5 mL oral solution 100 mg PO QAM 11/16/21 04/13/23 calcitriol 0.5 mcg capsule 0.5 mcg PO BID #360 caps 06/14/22 04/13/23 magnesium gluconate 27 mg 27 mg PO BID #60 tabs 11/08/22 04/13/23 magnesium (500 mg) tablet cyclobenzaprine 10 mg tablet 10 mg PO TID PRN muscle spasm #30 12/03/22 04/13/23 tabs diclofenac sodium 1 % topical gel 4 g topical QID #100 grams 12/07/22 04/13/23 calcium carbonate 200 mg calcium 2,000 mg PO BID 02/02/23 04/13/23 (500 mg) chewable tablet (Tums) gabapentin 300 mg capsule 300 mg PO BID 02/02/23 04/13/23 pantoprazole 40 mg granules 40 mg PO DAILY #30 ea 02/13/23 04/13/23 delayed-release for susp in packet (Protonix) clonazepam 1 mg tablet 1 mg PO BID #56 tabs 02/24/23 04/13/23 ondansetron 4 mg disintegrating 4 mg PO Q8H #5 tabs 03/22/23 04/13/23 tablet benzonatate 200 mg capsule 200 mg PO TID PRN cough #30 caps 04/07/23 04/13/23 Previous Rx's Medication Instructions Recorded calcitriol 0.5 mcg capsule 0.5 mcg PO BID #360 caps 06/14/22 magnesium gluconate 27 mg 27 mg PO BID #60 tabs 11/08/22 magnesium (500 mg) tablet cyclobenzaprine 10 mg tablet 10 mg PO TID PRN muscle spasm #30 12/03/22 tabs diclofenac sodium 1 % topical gel 4 g topical QID #100 grams 12/07/22 pantoprazole 40 mg granules 40 mg PO DAILY #30 ea 02/13/23 delayed-release for susp in packet (Protonix) clonazepam 1 mg tablet 1 mg PO BID #56 tabs 02/24/23 ondansetron 4 mg disintegrating 4 mg PO Q8H #5 tabs 03/22/23 tablet benzonatate 200 mg capsule 200 mg PO TID PRN cough #30 caps 04/07/23 Allergies Allergy/AdvReac Type Severity Reaction Status Date / Time codeine Allergy Intermediate Verified 04/13/23 18:01 Penicillins Allergy Skin Rash Verified 04/13/23 18:01 amoxicillin AdvReac Intermediate Nausea Verified 04/13/23 18:01 dextromethorphan AdvReac Intermediate Other (See Unverified 04/13/23 18:01 [From NyQuil] Comment) doxylamine [From NyQuil] AdvReac Intermediate Other (See Unverified 04/13/23 18:01 Comment) pseudoephedrine [From NyQuil] AdvReac Intermediate Other (See Unverified 04/13/23 18:01 Comment) General Stated Complaint: Chest Pain ADRIANA: 2 PFSH All Active Problems (Updated 04/13/23 @ 18:59 by Jeovany Elias MD) Chest pain (Acute) Acid reflux disease (Chronic) Anterior chest wall pain (Acute) Post-viral cough syndrome (Acute) Pain in right upper arm (Acute) Cough (Acute) COVID (Acute) COVID-19 (Acute) Contusion (Acute) Pain, dental (Acute) Odontalgia (Acute) Dental caries (Acute) Cholelithiases (Acute) 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 (Acute) Inflammatory arthritis (Acute) Costochondritis (Acute 12/13/22) [facility] Cellulitis (Acute) Severe anxiety with panic (Chronic) Family history of coronary arteriosclerosis (Chronic) Father of OH at 50, mother had [place] at 42 Elevated parathyroid hormone (Acute) Suicidal ideation (Acute) Depression (Chronic) Hypocalcemia (Chronic) Hypomagnesemia (Chronic) Depression (Chronic) Primary hyperparathyroidism (Chronic) Chronic constipation (Chronic) Multiple endocrine neoplasia type I (Chronic) Iatrogenic hypocalcemia (Acute) Abdominal pain (Acute) Common bile duct dilatation (Acute) Intrahepatic bile duct dilation (Acute) Abnormal CT scan, kidney (Acute) Sphincter of Oddi dysfunction (Chronic) Therapeutic opioid induced constipation (Acute) Pulmonary nodule 1 cm or greater in diameter (Chronic) Neck pain on left side (Acute) with shoulder, upper back pain.. torticollis, radiating into left hip/leg History of electrolyte imbalance (Acute) Complex medical condition (Chronic) Serious electrolyte imbalances, with gynecomastia, possible MEN Dx, CKD and anemia with baseline anxiety and Hx PTSD. CKD (chronic kidney disease) stage 2, GFR 60-89 ml/min (Acute) GFR 64-65, with Hx FLORESITA and GFR < 45 Gynecomastia, male (Acute) b/l, per CT (Jul 2022).. Possible 2' Methadone, Clnzpm (?). Surg eval (+)/No further action. 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 03/20/23 per pt Adopted: No Caregiver/Support person: No Foster care: No Household members: none Housing: apartment Number of Children: 0 Communication Needs: None Education Level: high school Do you need help understanding health information?: Never 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 and animals: Yes (Ally) Pets and animals: dog(s) Sexually active: No Do you think of yourself as: straight/heterosexual Current gender identity: male What is your relationship status?: How often do you talk on the phone with friends or family?: twice per week How often do you get together with friends or relatives?: never Do you belong to any clubs or organized social groups?: no Panel score (0-1 are the most socially isolated patients): 0 What type of physical activity do you participate in: walking Duration: 15-30 minutes/day Frequency: 5-6 times per week Maryam/Islam: Jew Special maryam needs: No Seatbelt use: always Helmet use: Yes Helmet use: always Drive 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 pharmacy 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 Exam Narrative Exam Narrative: Review of Systems: All systems reviewed & are unremarkable except as noted in HPI and below: CONSTITUTIONAL: Alert and oriented Well-developed, no acute distress HEENT: NACT EYES: PERRL, no conjunctival injection EARS: no external abnormality NOSE nares patent MOUTH Moist MM NECK: Symmetric, trachea midline, No thyromegaly THROAT oropharynx clear CVS: RRR, No murmurs or gallops. Peripheral pulses 2+ and equal in all extremities Brisk capillary refill in all extremities. No peripheral edema RESP: Unlabored respiratory effort, Clear to auscultation bilaterally No wheezes rales or rhonchi GI: Soft, Nontender, Nondistended, No organomegaly MSK: Extremities with full range of motion, no deformity or TTP SKIN: Warm, Dry. No rashes or lesions. NEURO: No focal neurologic deficits. 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 Sensation grossly intact Normal strength throughout PSYCH: Appropriate mood and affect Course Vital Signs Vital signs: Vital Signs Temperature 36.6 C 04/13/23 17:51 Pulse 88 04/13/23 17:51 Respiratory Rate 16 04/13/23 17:51 Blood Pressure 132/92 H 04/13/23 17:51 Pulse Oximetry 99 04/13/23 17:51 Temperature 36.6 C 04/13/23 17:51 Temperature Source Skin 04/13/23 17:51 Pulse 88 04/13/23 17:51 Respiratory Rate 16 04/13/23 17:51 Blood Pressure 132/92 H 04/13/23 17:51 Pulse Oximetry 99 04/13/23 17:51 Oxygen Delivery Method Room Air 04/13/23 17:51 Oxygen Flow Rate 0 04/13/23 17:51 Pain Level 5 04/13/23 17:51
[2023-04-13] MEDS: Ketorolac 15 MG/ML VIAL 10 MG IVP (18:31)
[2023-04-13] MEDS: Famotidine 20 MG/2 ML VIAL IVP (18:31)
[2023-04-13] MEDS: Aspirin 81 MG CHEW 324 MG CH (18:31)
[2023-04-13 18:32] LABS: Abs Immature Grans 0.01 10^3/uL (0.0-0.06); Absolute Basophil Count 0.03 10^3/uL (0.0-0.2); Absolute Eosinophil Count 0.23 10^3/uL (0.0-0.7); Absolute Lymphocyte Count 1.52 10^3/uL (1.2-3.4); Absolute Monocyte Count 0.68 10^3/uL (0.1-0.8); Absolute Neutrophil Count 4.07 10^3/uL (1.2-6.7); Basophils % 0.5; Eosinophils % 3.5; HCT 39.1 % (40.0-50.0); HGB 13.1 g/dL (13.5-17.5); Immature Grans % 0.2; Lymphocytes % 23.2; MCH 30.5 pg (27.0-33.0); MCHC 33.5 % (32.0-36.0); MCV 91 fL (80-95); MPV 10.9 fL (8.0-11.0); Monocytes % 10.4; Neutrophils % 62.2; Platelet Count 257 10^3/uL (130-400); RBC 4.29 10^6/uL (4.36-5.78); RDW 12.5 % (11.8-14.1); RDW-SD 40.7 fL; WBC 6.54 10^3/uL (4.4-10.8)
[2023-04-13 18:50] LABS: ALT 129 U/L (16-63); AST 60 U/L (15-37); Albumin 3.6 g/dL (3.4-5.0); Alkaline Phosphatase 151 U/L (46-116); Anion Gap 6.7 mmol/L (3-11); BUN 14 mg/dL (7-18); Bilirubin, Total 0.2 mg/dL (0.2-1.0); CO2 32.3 mmol/L (21.0-32.0); CREATININE 1.5 mg/dL (0.70-1.30); Chloride 101 mmol/L (98-107); Estimated GFR 64.23 (mL/min/1.73m2); Glucose 99 mg/dL (74-106); Sodium 140 mmol/L (136-145); Total Protein 8.2 g/dL (6.4-8.2); Troponin I < 50 ng/L (<or=60)
[2023-04-13 19:12] VITALS: BP 126/72; PULSE 68; RESP 20; O2SAT 99
== END 2023-04-13 19:14 | disposition home or self-care (01) ==
PROVIDERS: Emergency Provider Emergency Medicine; PCP Family Medicine
DX: R07.9 Chest pain, unspecified (principal); E78.5 Hyperlipidemia, unspecified
CPT/HCPCS: 36415; 80053; 93005; 96374; 96375; 99284; 84484; 85025; 93010; 99283; J1885

== ENCOUNTER 2023-04-19 07:40 | Emergency (ER) | payer OTHER, SELFPAY ==
[2023-04-19 07:43] VITALS: BP 133/87; PULSE 80; RESP 15; TEMP 36.6; O2SAT 99
[2023-04-19 07:51] VITALS: BP 133/87; PULSE 85; RESP 15; TEMP 36.6; O2SAT 97
--- NOTE | 2023-04-19 08:00 | DI.CT_ITS ---
Exam(s) CT ABDOMEN PELVIS W EXAM: CT ABDOMEN PELVIS W CLINICAL HISTORY: RLQ abd pain, TTP TECHNIQUE: Imaging Protocol: Axial computed tomography images with coronal and sagittal reformatted images were created and reviewed CONTRAST MATERIAL: Intravenous: Omnipaque 350 Contrast volume:100 mL Oral: No COMPARISON: CT CT ABDOMEN PELVIS W from 04/11/2023 FINDINGS: ABDOMEN: Lung Bases: Normal where visualized. Liver: Normal density. No measurable mass. Portal, Superior Mesenteric, and Splenic Veins: Unremarkable. Gallbladder and Biliary Tract: No radiodense calculus or dilation. Pancreas: Normal density, no abnormal calcifications or inflammatory process. Spleen: Normal. Adrenals: No masses seen. Kidneys: Normal size, contour and axis. No radiodense stones or obstructive uropathy. There is a stab le cyst in the left kidney. No follow-up is recommended. Abdominal Aorta: Abdominal portion non-dilated. Bowel: No obstruction or bowel wall thickening. Appendix is unremarkable. There is a large amount of stool in the colon which may represent constipation. Peritoneal Cavity: No ascites, collection or mesenteric inflammatory response. No free air. Lymph Nodes: Within normal limits. Bones: Within normal limits for the patient's age. Soft Tissues: There is a tiny fat containing right inguinal hernia. PELVIS: Bladder: Symmetric distention, no gross wall thickening. Reproductive Organs: Unremarkable as visualized. Lymph Nodes: Within normal limits. Bones: Within normal limits for the patient's age. IMPRESSION: 1. Normal appendix. 2. Large amount of stool in the colon suggesting constipation. 3. Unremarkable small right fat containing inguinal hernia. RADIATION DOSE DELIVERED: Total DLP DATA REPOSITORY: All CT scans at this facility are submitted to the National Radiology Data Registry (NRDR) Dose Index Registry (DIR) with the [employer] ([employer]). RADIATION OPTIMIZATION: All CT scans at this facility use at least one of these dose optimization te chniques: automated exposure control; mA and/or kV adjustment per patient size (includes targeted exa ms where dose is matched to clinical indication); or iterative reconstruction.
--- NOTE | 2023-04-19 08:14 | ED.GENADUL_ITS ---
Discharge Plan Disposition Patient Disposition: Home Condition: Good Discharge Details Clinical Impression: Abdominal pain Primary Care Provider: Brendon Vivar ED Provider: Kimberli Martinez Home Meds and New Rx's Prescriptions: No Action clonazepam 1 mg tablet 1 mg PO BID Qty: 56 1RF methadone 10 mg/5 mL solution 100 mg PO QAM magnesium gluconate 27 mg magnesium (500 mg) tablet 27 mg PO BID Qty: 60 3RF cyclobenzaprine 10 mg tablet 10 mg PO TID PRN (Reason: muscle spasm) Qty: 30 3RF calcitriol 0.5 mcg capsule 0.5 mcg PO BID Qty: 360 3RF Hold Instructions: Resume on 06/15/22. calcium carbonate [Tums] 200 mg calcium (500 mg) tablet,chewable 2,000 mg PO BID gabapentin 300 mg capsule 300 mg PO BID benzonatate 200 mg capsule 200 mg PO TID PRN (Reason: cough) Qty: 30 0RF diclofenac sodium 1 % gel 4 g topical QID Qty: 100 0RF Rx Instructions: apply to single knee, ankle, foot; for foot includes sole/toes/top of foot pantoprazole [Protonix] [address] for susp in packet 40 mg PO DAILY Qty: 30 0RF ondansetron 4 mg tablet,disintegrating 4 mg PO Q8H Qty: 5 0RF Discharge Instructions Instructions: Abdominal Pain (ED) Additional Instructions: Call your primary care doctor on Friday to schedule an appointment within one week to follow up on your visit today. Return to the emergency department for new or worsening symptoms, including new/different/worse pain, vomiting, or if you have any other concerns. 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 Vital signs reassuring, physical exam with mild RLQ TTP, no peritoneal signs. Not septic. Tylenol/toradol for pain. Low suspicion for acute intrabdominal process however given tenderness will get CT. No RUQ pain to suggest acute gallbladder pathology. Labs reviewed as below, CBC & CMP reassuring, Cr 1.5 (baseline 1.3-1.5 over last [address] [facility] record review), Mg slightly low (patient supplemnting at home), no actionable abnormalities. UA without infection. Not concerning for nephroliathisis, UTI, or pyelonephritis. CT independently reviewed, large stool burden with no bowel obstruction on my view, agree with radiology read below, no acute findings. On reassessment he remains non-toxic appearing with reassuring vital signs, report pain improved. Discharged home to PCP followup. Discharge instructions including return precautions were reviewed with patient who verbalized understanding. All questions were answered and they are in full agreement with the plan. Medical Records Medical records reviewed: Yes I reviewed the patient's medical records. Imaging Data Radiologic Study: Imaging: CT Scan Radiologist's impression: IMPRESSION: No CT evidence for acute appendicitis Tiny right inguinal hernia containing fat grossly stable Large stool in the colon. Correlate for constipation Lab Data Lab results reviewed: Yes I reviewed the patient's lab results. Labs: Laboratory Tests Range/Units 04/19/23 04/19/23 08:03 08:25 WBC (4.4-10.8) 10^3/uL 6.31 RBC (4.36-5.78) 10^6/uL 3.83 L Hgb (13.5-17.5) g/dL 11.7 L Hct (40.0-50.0) % 35.2 L MCV (80-95) fL 92 MCH (27.0-33.0) pg 30.5 MCHC (32.0-36.0) % 33.2 RDW (11.8-14.1) % 12.6 Plt Count (130-400) 10^3/uL 243 MPV (8.0-11.0) fL 10.9 Immature Gran % 0.2 Neutrophils % 53.5 Lymphocytes % 30.1 Monocytes % 12.2 Eosinophils % 3.5 Basophils % 0.5 Nucleated RBC % (0.0-0.3) % 0.0 Absolute Neutrophils (1.2-6.7) 10^3/uL 3.38 Absolute Lymphocytes (1.2-3.4) 10^3/uL 1.90 Absolute Monocytes (0.1-0.8) 10^3/uL 0.77 Absolute Eosinophils (0.0-0.7) 10^3/uL 0.22 Absolute Basophils (0.0-0.2) 10^3/uL 0.03 Sodium (136-145) mmol/L 138 Potassium (3.5-5.1) mmol/L 3.7 Chloride (98-107) mmol/L 100 Carbon Dioxide (21.0-32.0) mmol/L 32.8 H Anion Gap (3-11) mmol/L 5.2 BUN (7-18) mg/dL 16 Creatinine (0.70-1.30) mg/dL 1.5 H Est GFR (CKD-EPI 2020) (mL/min/1.73m2) 64.23 Glucose (74-106) mg/dL 72 L Calcium (8.5-10.1) mg/dL 8.9 Magnesium (1.8-2.4) mg/dL 1.7 L Total Bilirubin (0.2-1.0) mg/dL 0.2 AST (15-37) U/L 27 ALT (16-63) U/L 51 Alkaline Phosphatase (46-116) U/L 106 Total Protein (6.4-8.2) g/dL 7.4 Albumin (3.4-5.0) g/dL 3.3 L Urine Color (Yellow) Yellow Urine Clarity (Clear) Sl Cloudy Urine pH (5-8) 7.0 Ur Specific [place] (1.005-1.025) 1.020 Urine Protein (Negative) mg/dL Negative Urine Ketones (Negative) mg/dL Negative Urine Blood (Negative) Negative Urine Nitrite (Negative) Negative Urine Bilirubin (Negative) Negative Urine Urobilinogen (Up to 0.2) mg/dL 0.2 Ur Leukocyte Esterase (Negative) Negative Urine Glucose (Negative) mg/dL Negative HPI General Mode of arrival: ambulatory . Date/Time Provider Initiated Documentation: 04/19/23 07:41 . Limitations to Documentation: no limitations . Information obtained by: patient . 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 First noted symptoms yesterday evening after eating yogurt, improved and he was able to sleep. This morning after breakfast again had RLQ abdominal pain radiating to right flank. No upper abdominal pain. Mild nausea, yesterday, no vomiting. Normal BM yesterday, does have a history of constipation. No dysuria or hematuria. No fevers. No testicular pain. No unusual penile discharge. He is otherwise in his usual state of health. Related Data Home Medications Medication Instructions Recorded Confirmed methadone 10 mg/5 mL oral solution 100 mg PO QAM 11/16/21 04/19/23 calcitriol 0.5 mcg capsule 0.5 mcg PO BID #360 caps 06/14/22 04/19/23 magnesium gluconate 27 mg 27 mg PO BID #60 tabs 11/08/22 04/19/23 magnesium (500 mg) tablet cyclobenzaprine 10 mg tablet 10 mg PO TID PRN muscle spasm #30 12/03/22 04/19/23 tabs diclofenac sodium 1 % topical gel 4 g topical QID #100 grams 12/07/22 04/19/23 calcium carbonate 200 mg calcium 2,000 mg PO BID 02/02/23 04/19/23 (500 mg) chewable tablet (Tums) gabapentin 300 mg capsule 300 mg PO BID 02/02/23 04/19/23 pantoprazole 40 mg granules 40 mg PO DAILY #30 ea 02/13/23 04/19/23 delayed-release for susp in packet (Protonix) clonazepam 1 mg tablet 1 mg PO BID #56 tabs 02/24/23 04/19/23 ondansetron 4 mg disintegrating 4 mg PO Q8H #5 tabs 03/22/23 04/19/23 tablet benzonatate 200 mg capsule 200 mg PO TID PRN cough #30 caps 04/07/23 04/19/23 Previous Rx's Medication Instructions Recorded calcitriol 0.5 mcg capsule 0.5 mcg PO BID #360 caps 06/14/22 magnesium gluconate 27 mg 27 mg PO BID #60 tabs 11/08/22 magnesium (500 mg) tablet cyclobenzaprine 10 mg tablet 10 mg PO TID PRN muscle spasm #30 12/03/22 tabs diclofenac sodium 1 % topical gel 4 g topical QID #100 grams 12/07/22 pantoprazole 40 mg granules 40 mg PO DAILY #30 ea 02/13/23 delayed-release for susp in packet (Protonix) clonazepam 1 mg tablet 1 mg PO BID #56 tabs 02/24/23 ondansetron 4 mg disintegrating 4 mg PO Q8H #5 tabs 03/22/23 tablet benzonatate 200 mg capsule 200 mg PO TID PRN cough #30 caps 04/07/23 Allergies Allergy/AdvReac Type Severity Reaction Status Date / Time codeine Allergy Intermediate Verified 04/19/23 07:50 Penicillins Allergy Skin Rash Verified 04/19/23 07:50 amoxicillin AdvReac Intermediate Nausea Verified 04/19/23 07:50 dextromethorphan AdvReac Intermediate Other (See Unverified 04/19/23 07:50 [From NyQuil] Comment) doxylamine [From NyQuil] AdvReac Intermediate Other (See Unverified 04/19/23 07:50 Comment) pseudoephedrine [From NyQuil] AdvReac Intermediate Other (See Unverified 04/19/23 07:50 Comment) General Stated Complaint: Abd Prob ADRIANA: 3 Review of Systems Narrative: see HPI PFSH All Active Problems (Updated 04/19/23 @ 09:40 by Kimberli Martinez MD) Abdominal pain (Acute) Chest pain (Acute) Acid reflux disease (Chronic) Anterior chest wall pain (Acute) Post-viral cough syndrome (Acute) Pain in right upper arm (Acute) Cough (Acute) COVID (Acute) COVID-19 (Acute) Contusion (Acute) Cholelithiases (Acute) 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 (Acute) Inflammatory arthritis (Acute) Costochondritis (Acute 12/13/22) [facility] ED Cellulitis (Acute) Severe anxiety with panic (Chronic) Family history of coronary arteriosclerosis (Chronic) Father of [place] at 50, mother had [place] at 42 Elevated parathyroid hormone (Acute) Suicidal ideation (Acute) Depression (Chronic) Hypocalcemia (Chronic) Hypomagnesemia (Chronic) Depression (Chronic) Primary hyperparathyroidism (Chronic) Chronic constipation (Chronic) Multiple endocrine neoplasia type I (Chronic) Iatrogenic hypocalcemia (Acute) Abdominal pain (Acute) Common bile duct dilatation (Acute) Intrahepatic bile duct dilation (Acute) Abnormal CT scan, kidney (Acute) Sphincter of Oddi dysfunction (Chronic) Therapeutic opioid induced constipation (Acute) Pulmonary nodule 1 cm or greater in diameter (Chronic) Neck pain on left side (Acute) with shoulder, upper back pain.. torticollis, radiating into left hip/leg History of electrolyte imbalance (Acute) Complex medical condition (Chronic) Serious electrolyte imbalances, with gynecomastia, possible MEN Dx, CKD and anemia with baseline anxiety and Hx PTSD. CKD (chronic kidney disease) stage 2, GFR 60-89 ml/min (Acute) GFR 64-65, with Hx FLORESITA and GFR < 45 Gynecomastia, male (Acute) b/l, per CT (Jul 2022).. Possible 2' Methadone, Clnzpm (?). Surg eval (+)/No further action. 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 03/20/23 per pt Adopted: No Caregiver/Support person: No Foster care: No Household members: none Housing: apartment Number of Children: 0 Communication Needs: None Education Level: high school Do you need help understanding health information?: Never 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 and animals: Yes (Ally) Pets and animals: dog(s) Sexually active: No Do you think of yourself as: straight/heterosexual Current gender identity: male What is your relationship status?: How often do you talk on the phone with friends or family?: twice per week How often do you get together with friends or relatives?: never Do you belong to any clubs or organized social groups?: no Panel score (0-1 are the most socially isolated patients): 0 What type of physical activity do you participate in: walking Duration: 15-30 minutes/day Frequency: 5-6 times per week Maryam/Samaritan: Episcopal Special maryam needs: No Seatbelt use: always Helmet use: Yes Helmet use: always 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 Head: Normocephalic, atraumatic Neck: Trachea midline, Neck supple. Cardiac: RRR, no murmurs appreciated Resp: No respiratory distress. CTAB. Abd: Soft, non-distended. RLQ TTP with no rebound or guarding. : No suprapubic tenderness. No CVA tenderness. Extremities: No deformities. No peripheral edema. Neurologic: GCS 15. Moves all extremities freely against gravity Course Vital Signs Vital signs: Vital Signs Temperature 36.6 C 04/19/23 07:43 Pulse 80 04/19/23 07:43 Respiratory Rate 15 04/19/23 07:43 Blood Pressure 133/87 04/19/23 07:43 Pulse Oximetry 99 04/19/23 07:43 Temperature 36.6 C 04/19/23 07:51 Temperature Source Oral 04/19/23 07:51 Pulse 85 04/19/23 07:51 Respiratory Rate 15 04/19/23 07:51 Respiratory Effort Normal 04/19/23 07:48 Blood Pressure 133/87 04/19/23 07:51 Blood Pressure Position Sitting 04/19/23 07:43 Pulse Oximetry 97 04/19/23 07:51 Oxygen Delivery Method Room Air 04/19/23 07:51 Oxygen Flow Rate 0 04/19/23 07:43 Pain Level 7 04/19/23 07:51
[2023-04-19] MEDS: Ketorolac 15 MG/ML VIAL IVP (08:21)
[2023-04-19] MEDS: ACETAMINOPHEN 1,000 MG/100 ML BTL 400 MG IVPB (08:22)
[2023-04-19 08:23] LABS: Abs Immature Grans 0.01 10^3/uL (0.0-0.06); Absolute Basophil Count 0.03 10^3/uL (0.0-0.2); Absolute Eosinophil Count 0.22 10^3/uL (0.0-0.7); Absolute Monocyte Count 0.77 10^3/uL (0.1-0.8); Absolute Neutrophil Count 3.38 10^3/uL (1.2-6.7); Basophils % 0.5; Eosinophils % 3.5; HCT 35.2 % (40.0-50.0); HGB 11.7 g/dL (13.5-17.5); Immature Grans % 0.2; Lymphocytes % 30.1; MCH 30.5 pg (27.0-33.0); MCHC 33.2 % (32.0-36.0); MCV 92 fL (80-95); MPV 10.9 fL (8.0-11.0); Monocytes % 12.2; Neutrophils % 53.5; Platelet Count 243 10^3/uL (130-400); RBC 3.83 10^6/uL (4.36-5.78); RDW 12.6 % (11.8-14.1); RDW-SD 42.2 fL; WBC 6.31 10^3/uL (4.4-10.8)
[2023-04-19 08:33] LABS: ALT 51 U/L (16-63); AST 27 U/L (15-37); Albumin 3.3 g/dL (3.4-5.0); Alkaline Phosphatase 106 U/L (46-116); Anion Gap 5.2 mmol/L (3-11); BUN 16 mg/dL (7-18); Bilirubin, Total 0.2 mg/dL (0.2-1.0); CO2 32.8 mmol/L (21.0-32.0); CREATININE 1.5 mg/dL (0.70-1.30); Calcium 8.9 mg/dL (8.5-10.1); Chloride 100 mmol/L (98-107); Estimated GFR 64.23 (mL/min/1.73m2); Glucose 72 mg/dL (74-106); Magnesium 1.7 mg/dL (1.8-2.4); Potassium 3.7 mmol/L (3.5-5.1); Sodium 138 mmol/L (136-145); Total Protein 7.4 g/dL (6.4-8.2)
[2023-04-19 08:35] LABS: Bilirubin Negative (Negative); Blood Negative (Negative); Clarity Sl Cloudy (Clear); Glucose Negative (Negative); Ketones Negative (Negative); Leukocyte Esterase Negative (Negative); Nitrite Negative (Negative); Urobilinogen 0.2 mg/dL (Up to 0.2)
[2023-04-19] MEDS: Normal Saline Flush 10 ML SYR IVP (08:51)
[2023-04-19] MEDS: Normal Saline - Diluent 50 ML VIAL IJ (08:52)
[2023-04-19] MEDS: Omnipaque 350 MG/ML 100 ML BTL IJ (08:53)
--- NOTE | 2023-04-19 09:22 | DI.VRAD_ITS ---
PROCEDURE INFORMATION: Exam: CT Abdomen And Pelvis With Contrast Exam date and time: 04/19/2023 8:54 AM Age: 27 years old Clinical indication: Other: Rlq abd pain ttp TECHNIQUE: Imaging protocol: Computed tomography of the abdomen and pelvis with contrast. Radiation optimization: All CT scans at this facility use at least one of these dose optimization techniques: automated exposure control; mA and/or kV adjustment per patient size (includes targeted exams where dose is matched to clinical indication); or iterative reconstruction. Contrast material: OMNI 350; Contrast volume: 100 ml; Contrast route: INTRAVENOUS (IV); COMPARISON: CT ABDOMEN PELVIS W 04/11/2023 7:53 PM FINDINGS: Liver: Normal. No mass. Gallbladder and bile ducts: Normal. No calcified stones. No ductal dilation. Pancreas: Normal. No ductal dilation. Spleen: Normal. No splenomegaly. Adrenal glands: Normal. No mass. Kidneys and ureters: Left renal cyst No hydronephrosis. Stomach and bowel: Large stool in the colon No obstruction. No mucosal thickening. Appendix: No evidence of appendicitis. Intraperitoneal space: Unremarkable. No free air. No significant fluid collection. Vasculature: Unremarkable. No abdominal aortic aneurysm. Lymph nodes: Unremarkable. No enlarged lymph nodes. Urinary bladder: Unremarkable as visualized. Reproductive: Unremarkable as visualized. Bones/joints: Unremarkable. No acute fracture. Soft tissues: Tiny right inguinal hernia containing fat. IMPRESSION: No CT evidence for acute appendicitis Tiny right inguinal hernia containing fat grossly stable Large stool in the colon. Correlate for constipation Dictated and Authenticated by: Kameron Granger MD. Ordering:SHELBY Ag MD
== END 2023-04-19 09:47 | disposition home or self-care (01) ==
PROVIDERS: Emergency Provider Student in an Organized Health Care Education/Training Program; PCP Family Medicine
DX: R10.31 Right lower quadrant pain (principal); K21.9 Gastro-esophageal reflux disease without esophagitis
CPT/HCPCS: 80053; 96374; 96375; 99284; 74177; 81003; 83735; 85025; J0131; J1885; J3490

== ENCOUNTER 2023-04-20 08:50 | Emergency (ER) | payer OTHER, SELFPAY ==
[2023-04-20 08:53] VITALS: BP 134/81; PULSE 106; RESP 20; TEMP 36.6; O2SAT 96
--- NOTE | 2023-04-20 09:14 | W.ED.GENAD ---
Discharge Plan Disposition Patient Disposition: Home Condition: Stable Discharge Details Clinical Impression: Fracture of tooth Primary Care Provider: Brendon Vivar ED Provider: Crow Gama Home Meds and New Rx's Prescriptions: Continued methadone 10 mg/5 mL solution 100 mg PO QAM magnesium gluconate 27 mg magnesium (500 mg) tablet 27 mg PO BID Qty: 60 3RF calcium carbonate [Tums] 200 mg calcium (500 mg) tablet,chewable 2,000 mg PO BID gabapentin 300 mg capsule 300 mg PO BID pantoprazole [Protonix] [address] for susp in packet 40 mg PO DAILY Qty: 30 0RF ondansetron 4 mg tablet,disintegrating 4 mg PO Q8H Qty: 5 0RF No Action clonazepam 1 mg tablet 1 mg PO BID Qty: 56 1RF calcitriol 0.5 mcg capsule 0.5 mcg PO BID Qty: 360 3RF Hold Instructions: Resume on 06/15/22. cyclobenzaprine 10 mg tablet 10 mg PO TID PRN (Reason: muscle spasm) Qty: 30 3RF diclofenac sodium 1 % gel 4 g topical QID Qty: 100 6RF Rx Instructions: apply to single knee, ankle, foot; for foot includes sole/toes/top of foot Discharge Instructions Instructions: Acute Dental Trauma (ED) Additional Instructions: Please follow-up with your dentist tomorrow. Please take acetaminophen (tylenol) - 650mg every 6 hours by mouth as needed for pain. Please take ibuprofen over the counter. Take 600mg by mouth every 6 hours as needed for pain. Return to the ER immediately for any worsening or new concerning symptoms. Discharge Data Discharge Date/Time-TO BE ENTERED AT DEPARTURE: 04/20/23 09:50 Medical Decision Making <Lester Bundy MD - Last Filed: 04/22/23 09:01> 27-year-old male here with Strange class III dental fracture tooth #11 that occurred this morning. Appears to be underlying chronic dental decay. Plan for periapical dental block and temporary filling with dentin. Nurse practitioner Lanette to assist and perform dental procedure. Usual customary discharge instructions reviewed the patient he was encouraged to follow-up with the dentist tomorrow. HPI <Lester Bundy MD - Last Filed: 04/22/23 09:01> General Mode of arrival: ambulatory. Date/Time Provider Initiated Documentation: 04/20/23 09:04. Limitations to Documentation: no limitations. Information obtained by: patient. HPI Narrative: 27-year-old male here with dental fracture that occurred this morning left upper incisor. Called his dentist who noted could not see him today and advised come to the ED for additional emergent treatment. They will see the patient tomorrow morning. Related Data Home Medications Medication Instructions Recorded Confirmed methadone 10 mg/5 mL oral solution 100 mg PO QAM 11/16/21 04/21/23 magnesium gluconate 27 mg 27 mg PO BID #60 tabs 11/08/22 04/21/23 magnesium (500 mg) tablet calcium carbonate 200 mg calcium 2,000 mg PO BID 02/02/23 04/21/23 (500 mg) chewable tablet (Tums) gabapentin 300 mg capsule 300 mg PO BID 02/02/23 04/21/23 pantoprazole 40 mg granules 40 mg PO DAILY #30 ea 02/13/23 04/21/23 delayed-release for susp in packet (Protonix) ondansetron 4 mg disintegrating 4 mg PO Q8H #5 tabs 03/22/23 04/21/23 tablet calcitriol 0.5 mcg capsule 0.5 mcg PO BID #360 caps 04/21/23 04/21/23 clonazepam 1 mg tablet 1 mg PO BID #56 tabs 04/21/23 04/21/23 cyclobenzaprine 10 mg tablet 10 mg PO TID PRN muscle spasm #30 04/21/23 04/21/23 tabs diclofenac sodium 1 % topical gel 4 g topical QID #100 grams 04/21/23 04/21/23 Previous Rx's Medication Instructions Recorded magnesium gluconate 27 mg 27 mg PO BID #60 tabs 11/08/22 magnesium (500 mg) tablet pantoprazole 40 mg granules 40 mg PO DAILY #30 ea 02/13/23 delayed-release for susp in packet (Protonix) ondansetron 4 mg disintegrating 4 mg PO Q8H #5 tabs 03/22/23 tablet calcitriol 0.5 mcg capsule 0.5 mcg PO BID #360 caps 04/21/23 clonazepam 1 mg tablet 1 mg PO BID #56 tabs 04/21/23 cyclobenzaprine 10 mg tablet 10 mg PO TID PRN muscle spasm #30 04/21/23 tabs diclofenac sodium 1 % topical gel 4 g topical QID #100 grams 04/21/23 Allergies Allergy/AdvReac Type Severity Reaction Status Date / Time codeine Allergy Intermediate Verified 04/21/23 13:36 Penicillins Allergy Skin Rash Verified 04/21/23 13:36 amoxicillin AdvReac Intermediate Nausea Verified 04/21/23 13:36 dextromethorphan AdvReac Intermediate Other (See Unverified 04/21/23 13:36 [From NyQuil] Comment) doxylamine [From NyQuil] AdvReac Intermediate Other (See Unverified 04/21/23 13:36 Comment) pseudoephedrine [From NyQuil] AdvReac Intermediate Other (See Unverified 04/21/23 13:36 Comment) General Stated Complaint: DentalOral ADRIANA: 4 Review of Systems <Lester Bundy MD - Last Filed: 04/22/23 09:01> ENT Ears, Nose, Mouth, and Throat: Reports as per HPI PFSH <Lester Bundy MD - Last Filed: 04/22/23 09:01> All Active Problems (Updated 04/21/23 @ 14:34 by Brendon Vivar DO) Fracture of tooth (Acute) Chest pain (Acute) Acid reflux disease (Chronic) Anterior chest wall pain (Acute) Post-viral cough syndrome (Acute) Pain in right upper arm (Acute) Cholelithiases (Acute) 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 (Acute) Inflammatory arthritis (Acute) Costochondritis (Acute 12/13/22) [facility] Cellulitis (Acute) Severe anxiety with panic (Chronic) Family history of coronary arteriosclerosis (Chronic) Father of [place] at 50, mother had [place] at 42 Elevated parathyroid hormone (Acute) Suicidal ideation (Acute) Depression (Chronic) Hypocalcemia (Chronic) Hypomagnesemia (Chronic) Depression (Chronic) Primary hyperparathyroidism (Chronic) Chronic constipation (Chronic) Multiple endocrine neoplasia type I (Chronic) Iatrogenic hypocalcemia (Acute) Abdominal pain (Acute) Common bile duct dilatation (Acute) Intrahepatic bile duct dilation (Acute) Abnormal CT scan, kidney (Acute) Sphincter of Oddi dysfunction (Chronic) Therapeutic opioid induced constipation (Acute) Pulmonary nodule 1 cm or greater in diameter (Chronic) Neck pain on left side (Acute) with shoulder, upper back pain.. torticollis, radiating into left hip/leg History of electrolyte imbalance (Acute) Complex medical condition (Chronic) Serious electrolyte imbalances, with gynecomastia, possible MEN Dx, CKD and anemia with baseline anxiety and Hx PTSD. CKD (chronic kidney disease) stage 2, GFR 60-89 ml/min (Acute) GFR 64-65, with Hx FLORESITA and GFR < 45 Gynecomastia, male (Acute) b/l, per CT (Jul 2022).. Possible 2' Methadone, Clnzpm (?). Surg eval (+)/No further action. 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 03/20/23 per pt Adopted: No Caregiver/Support person: No Foster care: No Household members: none Housing: apartment Number of Children: 0 Communication Needs: None Education Level: high school Do you need help understanding health information?: Never 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 and animals: Yes (Ally) Pets and animals: dog(s) Sexually active: No Do you think of yourself as: straight/heterosexual Current gender identity: male What is your relationship status?: How often do you talk on the phone with friends or family?: twice per week How often do you get together with friends or relatives?: never Do you belong to any clubs or organized social groups?: no Panel score (0-1 are the most socially isolated patients): 0 What type of physical activity do you participate in: walking Duration: 15-30 minutes/day Frequency: 5-6 times per week Maryam/Sikh: Yarsani Special maryam needs: No Seatbelt use: always Helmet use: Yes Helmet use: always 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 Exam <Lester Bundy MD - Last Filed: 04/22/23 09:01> Const General: cooperative and healthy appearing Orientation: alert and awake HENMT Mouth: oral mucosae normal Teeth and gingiva: other (Tooth #11 dental fracture with exposed pulp, no bleeding) Course <Lester Bundy MD - Last Filed: 04/22/23 09:01> Vital Signs Vital signs: Vital Signs Temperature 36.6 C 04/20/23 08:53 Pulse 106 H 04/20/23 08:53 Respiratory Rate 20 04/20/23 08:53 Blood Pressure 134/81 04/20/23 08:53 Pulse Oximetry 96 04/20/23 08:53 Temperature 36.6 C 04/20/23 08:53 Temperature Source Oral 04/20/23 08:53 Pulse 106 H 04/20/23 08:53 Respiratory Rate 20 04/20/23 08:53 Respiratory Effort Normal 04/20/23 08:56 Blood Pressure 134/81 04/20/23 08:53 Blood Pressure Position Sitting 04/20/23 08:53 Pulse Oximetry 96 04/20/23 08:53 Oxygen Delivery Method Room Air 04/20/23 08:53 Oxygen Flow Rate 0 04/20/23 08:53 Pain Level 8 04/20/23 08:58 Procedures <Crow Gama NP - Last Filed: 04/20/23 15:51> Nerve Block Nerve Block 1: Time out performed: Yes Local Anesthetic: Lidocaine 1% and Bupivicaine 0.5% Amount of anesthesia used (mL): 2 Side: left Nerve Blocks: other Intraoral Nerve Block: other (Periapical) Procedure Successful: Yes Patient Tolerated Procedure: well Complications: none Other Description: Patient also gave verbal consent for topical dentin placement on fractured tooth. Tooth was dried both with sterile gauze and air. Mixture was mixed at 50% of each component and placed over the tooth. Patient tolerated procedure well with no complications noted.
[2023-04-20] MEDS: Bupivacaine 0.5% Pres-Free 30 ML VIAL (09:30)
[2023-04-20 09:44] VITALS: BP 125/74; PULSE 77; RESP 16; O2SAT 98
== END 2023-04-20 09:50 | disposition home or self-care (01) ==
PROVIDERS: Emergency Provider Nurse Practitioner Family; PCP Family Medicine
DX: R68.84 Jaw pain (principal); S02.5XXA Fracture of tooth (traumatic), initial encounter for closed fracture
CPT/HCPCS: 64400

== ENCOUNTER 2023-04-20 23:41 | Emergency (ER) | payer OTHER, SELFPAY ==
[2023-04-20 23:43] VITALS: BP 168/89; PULSE 64; RESP 18; TEMP 36.6; O2SAT 96
[2023-04-20] MEDS: Mylanta Suspension 30 ML CUP (23:59)
[2023-04-20] MEDS: Lidocaine 2% Viscous 1 ML Solution (23:59)
--- NOTE | 2023-04-21 00:08 | W.ED.GENAD ---
Discharge Plan Disposition Patient Disposition: Home Discharge Details Chief Complaint: Abd Prob Clinical Impression: Severe anxiety with panic, Acid reflux disease Primary Care Provider: Brendon Vivar ED Provider: Bryan Ramirez Home Meds and New Rx's Prescriptions: No Action clonazepam 1 mg tablet 1 mg PO BID Qty: 56 1RF methadone 10 mg/5 mL solution 100 mg PO QAM magnesium gluconate 27 mg magnesium (500 mg) tablet 27 mg PO BID Qty: 60 3RF cyclobenzaprine 10 mg tablet 10 mg PO TID PRN (Reason: muscle spasm) Qty: 30 3RF calcitriol 0.5 mcg capsule 0.5 mcg PO BID Qty: 360 3RF Hold Instructions: Resume on 06/15/22. calcium carbonate [Tums] 200 mg calcium (500 mg) tablet,chewable 2,000 mg PO BID gabapentin 300 mg capsule 300 mg PO BID benzonatate 200 mg capsule 200 mg PO TID PRN (Reason: cough) Qty: 30 0RF diclofenac sodium 1 % gel 4 g topical QID Qty: 100 0RF Rx Instructions: apply to single knee, ankle, foot; for foot includes sole/toes/top of foot pantoprazole [Protonix] [address] for susp in packet 40 mg PO DAILY Qty: 30 0RF ondansetron 4 mg tablet,disintegrating 4 mg PO Q8H Qty: 5 0RF Discharge Instructions Instructions: GERD (Gastroesophageal Reflux Disease) (ED) Additional Instructions: Continue current medications as previously directed. You can follow-up with regular primary care doctor for recheck and further management if symptoms or not improving with your regular medical care plan. You can always return to the ER for any new concerns or sudden changes in your health that you feel requires medical attention. Discharge Data Discharge Physician: Bryan Ramirez [facility] General Date/Time Provider Initiated Documentation: 04/20/23 23:42. HPI Narrative: The patient is a 27-year-old male, with a past medical history significant for gastroesophageal reflux disease, and severe anxiety with panic disorder, who is well-known to this emergency department for frequent visits related to multiple complaints, presents to the emergency department for his second visit in 24 hours. The patient complains of having gastritis and reflux-like symptoms after eating a brownie and drinking a cup of coffee. He was having some mild symptoms before he decided to eat and this made his symptoms much worse. He took his home Prilosec without any improvement in the symptoms and comes to the emergency room for evaluation of his upper abdominal discomfort. The patient reports that his symptoms are centered in the epigastric region. He denies any associated nausea, vomiting, diarrhea, or constipation. There are no reported fevers or chills. Related Data Home Medications Medication Instructions Recorded Confirmed methadone 10 mg/5 mL oral solution 100 mg PO QAM 11/16/21 04/20/23 calcitriol 0.5 mcg capsule 0.5 mcg PO BID #360 caps 06/14/22 04/20/23 magnesium gluconate 27 mg 27 mg PO BID #60 tabs 11/08/22 04/20/23 magnesium (500 mg) tablet cyclobenzaprine 10 mg tablet 10 mg PO TID PRN muscle spasm #30 12/03/22 04/20/23 tabs diclofenac sodium 1 % topical gel 4 g topical QID #100 grams 12/07/22 04/20/23 calcium carbonate 200 mg calcium 2,000 mg PO BID 02/02/23 04/20/23 (500 mg) chewable tablet (Tums) gabapentin 300 mg capsule 300 mg PO BID 02/02/23 04/20/23 pantoprazole 40 mg granules 40 mg PO DAILY #30 ea 02/13/23 04/20/23 delayed-release for susp in packet (Protonix) clonazepam 1 mg tablet 1 mg PO BID #56 tabs 02/24/23 04/20/23 ondansetron 4 mg disintegrating 4 mg PO Q8H #5 tabs 03/22/23 04/20/23 tablet benzonatate 200 mg capsule 200 mg PO TID PRN cough #30 caps 04/07/23 04/20/23 Previous Rx's Medication Instructions Recorded calcitriol 0.5 mcg capsule 0.5 mcg PO BID #360 caps 06/14/22 magnesium gluconate 27 mg 27 mg PO BID #60 tabs 11/08/22 magnesium (500 mg) tablet cyclobenzaprine 10 mg tablet 10 mg PO TID PRN muscle spasm #30 12/03/22 tabs diclofenac sodium 1 % topical gel 4 g topical QID #100 grams 12/07/22 pantoprazole 40 mg granules 40 mg PO DAILY #30 ea 02/13/23 delayed-release for susp in packet (Protonix) clonazepam 1 mg tablet 1 mg PO BID #56 tabs 02/24/23 ondansetron 4 mg disintegrating 4 mg PO Q8H #5 tabs 03/22/23 tablet benzonatate 200 mg capsule 200 mg PO TID PRN cough #30 caps 04/07/23 Allergies Allergy/AdvReac Type Severity Reaction Status Date / Time codeine Allergy Intermediate Verified 04/20/23 23:46 Penicillins Allergy Skin Rash Verified 04/20/23 23:46 amoxicillin AdvReac Intermediate Nausea Verified 04/20/23 23:46 dextromethorphan AdvReac Intermediate Other (See Unverified 04/20/23 23:46 [From NyQuil] Comment) doxylamine [From NyQuil] AdvReac Intermediate Other (See Unverified 04/20/23 23:46 Comment) pseudoephedrine [From NyQuil] AdvReac Intermediate Other (See Unverified 04/20/23 23:46 Comment) General Stated Complaint: Abd Prob ADRIANA: 4 Review of Systems Gastrointestinal Comments: . PFSH All Active Problems (Updated 04/21/23 @ 01:00 by Bryan Ramirez MD) Fracture of tooth (Acute) Abdominal pain (Acute) Chest pain (Acute) Acid reflux disease (Chronic) Anterior chest wall pain (Acute) Post-viral cough syndrome (Acute) Pain in right upper arm (Acute) Cough (Acute) COVID (Acute) COVID-19 (Acute) Cholelithiases (Acute) 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 (Acute) Inflammatory arthritis (Acute) Costochondritis (Acute 12/13/22) LR ED Cellulitis (Acute) Severe anxiety with panic (Chronic) Family history of coronary arteriosclerosis (Chronic) Father of VT at 50, mother had VT at 42 Elevated parathyroid hormone (Acute) Suicidal ideation (Acute) Depression (Chronic) Hypocalcemia (Chronic) Hypomagnesemia (Chronic) Depression (Chronic) Primary hyperparathyroidism (Chronic) Chronic constipation (Chronic) Multiple endocrine neoplasia type I (Chronic) Iatrogenic hypocalcemia (Acute) Abdominal pain (Acute) Common bile duct dilatation (Acute) Intrahepatic bile duct dilation (Acute) Abnormal CT scan, kidney (Acute) Sphincter of Oddi dysfunction (Chronic) Therapeutic opioid induced constipation (Acute) Pulmonary nodule 1 cm or greater in diameter (Chronic) Neck pain on left side (Acute) with shoulder, upper back pain.. torticollis, radiating into left hip/leg History of electrolyte imbalance (Acute) Complex medical condition (Chronic) Serious electrolyte imbalances, with gynecomastia, possible MEN Dx, CKD and anemia with baseline anxiety and Hx PTSD. CKD (chronic kidney disease) stage 2, GFR 60-89 ml/min (Acute) GFR 64-65, with Hx FLORESITA and GFR < 45 Gynecomastia, male (Acute) b/l, per CT (Jul 2022).. Possible 2' Methadone, Clnzpm (?). Surg eval (+)/No further action. 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 03/20/23 per pt Adopted: No Caregiver/Support person: No Foster care: No Household members: none Housing: apartment Number of Children: 0 Communication Needs: None Education Level: high school Do you need help understanding health information?: Never 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 and animals: Yes (Ally) Pets and animals: dog(s) Sexually active: No Do you think of yourself as: straight/heterosexual Current gender identity: male What is your relationship status?: How often do you talk on the phone with friends or family?: twice per week How often do you get together with friends or relatives?: never Do you belong to any clubs or organized social groups?: no Panel score (0-1 are the most socially isolated patients): 0 What type of physical activity do you participate in: walking Duration: 15-30 minutes/day Frequency: 5-6 times per week Maryam/Restorationism: Denominational Special maryam needs: No Seatbelt use: always Helmet use: Yes Helmet use: always Drive 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 utility 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 Exam Cardio Other: The patient has a normal heart rate with normal heart sounds. Distal pulses are intact. GI Other: Soft, normal bowel sounds, pain to palpation in the epigastric region Neuro Other: The cranial nerves are grossly intact, there is spontaneous movement of all 4 extremities with no obvious motor dysfunction, there is no reported sensory changes Psych Other: anxious Course The patient was seen and examined. He was given a GI cocktail when he first arrived in the emergency room and will be given IV Protonix, IV Toradol, and IV Reglan for treatment of his symptoms. The patient is seen quite frequently for a variety of minor complaints and in this setting, it is likely that the patient does not have any severe pathology. Patient will be screened for pancreatic and gallbladder dysfunction. The patient will be screened for occult myocardial ischemia, although I find this to be exceedingly unlikely. If the patient's laboratory work-up is negative for any acute findings, and his symptoms are improving, he can likely be safely discharged home with primary care follow-up. Reevaluation(s) Initial Evaluation: Patient reports that his symptoms of resolved with medications here in the emergency room. He is ready for discharge. Vital Signs Vital signs: Vital Signs Temperature 36.6 C 04/20/23 23:43 Pulse 64 04/20/23 23:43 Respiratory Rate 18 04/20/23 23:43 Blood Pressure 168/89 H 04/20/23 23:43 Pulse Oximetry 96 04/20/23 23:43 Temperature 36.6 C 04/20/23 23:43 Temperature Source Temporal Artery Scan 04/20/23 23:43 Pulse 64 04/20/23 23:43 Respiratory Rate 18 04/20/23 23:43 Respiratory Effort Normal 04/20/23 23:46 Blood Pressure 168/89 H 04/20/23 23:43 Blood Pressure Position Sitting 04/20/23 23:43 Pulse Oximetry 96 04/20/23 23:43
[2023-04-21] MEDS: Ketorolac 15 MG/ML VIAL IVP (00:17)
[2023-04-21] MEDS: Metoclopramide 10 MG/2 ML VIAL IVP (00:17)
[2023-04-21] MEDS: Normal Saline 1,000 ML 1000 ML IV (00:18)
[2023-04-21 00:22] LABS: Abs Immature Grans 0.01 10^3/uL (0.0-0.06); Absolute Basophil Count 0.04 10^3/uL (0.0-0.2); Absolute Eosinophil Count 0.29 10^3/uL (0.0-0.7); Absolute Lymphocyte Count 2.45 10^3/uL (1.2-3.4); Absolute Monocyte Count 1.12 10^3/uL (0.1-0.8); Absolute Neutrophil Count 4.48 10^3/uL (1.2-6.7); Basophils % 0.5; Eosinophils % 3.5; HCT 36.9 % (40.0-50.0); HGB 12.3 g/dL (13.5-17.5); Immature Grans % 0.1; Lymphocytes % 29.2; MCH 30.6 pg (27.0-33.0); MCHC 33.3 % (32.0-36.0); MCV 92 fL (80-95); MPV 11.1 fL (8.0-11.0); Monocytes % 13.3; Neutrophils % 53.4; Platelet Count 258 10^3/uL (130-400); RBC 4.02 10^6/uL (4.36-5.78); RDW 12.5 % (11.8-14.1); RDW-SD 41.5 fL; WBC 8.39 10^3/uL (4.4-10.8)
[2023-04-21 00:37] LABS: ALT 86 U/L (16-63); AST 91 U/L (15-37); Albumin 3.4 g/dL (3.4-5.0); Alkaline Phosphatase 117 U/L (46-116); Anion Gap 5.9 mmol/L (3-11); BUN 15 mg/dL (7-18); Bilirubin, Total 0.2 mg/dL (0.2-1.0); CO2 33.1 mmol/L (21.0-32.0); CREATININE 1.7 mg/dL (0.70-1.30); Calcium 10.1 mg/dL (8.5-10.1); Chloride 100 mmol/L (98-107); Estimated GFR 55.27 (mL/min/1.73m2); Glucose 109 mg/dL (74-106); Lipase 30 U/L (16-77); Potassium 4.1 mmol/L (3.5-5.1); Sodium 139 mmol/L (136-145); Total Protein 7.7 g/dL (6.4-8.2); Troponin I < 50 ng/L (<or=60)
[2023-04-21 01:03] VITALS: BP 132/68; PULSE 64; RESP 18; O2SAT 99
== END 2023-04-21 01:03 | disposition home or self-care (01) ==
PROVIDERS: Emergency Provider Emergency Medicine Emergency Medical Services; PCP Family Medicine
DX: K21.9 Gastro-esophageal reflux disease without esophagitis (principal); F41.0 Panic disorder [episodic paroxysmal anxiety]
CPT/HCPCS: 80053; 83690; 96361; 96374; 96375; 99283; 84484; 85025; J1885; J2765

== ENCOUNTER 2023-04-24 12:01 | Emergency (ER) | payer OTHER, SELFPAY ==
[2023-04-24] VITALS (7 sets, daily range): BP systolic 83–135; BP diastolic 50–89; PULSE 75–101; RESP 16; TEMP 36.9; O2SAT 96
--- NOTE | 2023-04-24 12:15 | DI.RAD_ITS ---
Exam(s) XR CHEST 2V PA LATERAL EXAM: XR CHEST 2V PA LATERAL CLINICAL HISTORY: Chest pain, shortness of breath. TECHNIQUE: 2D digital imaging was performed. COMPARISON: CR XR CHEST 2V PA LATERAL from 03/31/2023 FINDINGS: 2 views: Heart size is normal. The mediastinum is not widened. Lung is clear. There is slightly increased markings in the right upper lobe, possibly mild infiltrat e. There are no pleural effusions. IMPRESSION: Subtle right upper lobe increased markings which may be patchy infiltrate. No pleural effusions. DATA REPOSITORY: RADIATION DOSE DELIVERED:
--- NOTE | 2023-04-24 12:15 | RT.EKG_ITS ---
APPROVED REPORT Exam: Resting ECG Reason for Exam: Chest pain shortness of breath Patient Location: E HR:96 bpm ECG Measurements Heart Rate 96 AXIS DE 184 P 29 QRSd 94 QRS 31 QT 343 T 3 QTc 434 Conclusion Sinus rhythm...normal P axis, V-rate 60- 99 NSR, normal intervals, normal axis, Q wave in III, No STEMI no acute STTW changes. No significant margarita nges from previous
--- NOTE | 2023-04-24 12:17 | W.ED.GENAD ---
Discharge Plan Disposition Patient Disposition: Home Discharge Details Clinical Impression: Shortness of breath, Pneumonia of right upper lobe due to infectious organism Primary Care Provider: Brendon Vivar ED Provider: Miroslava Sykes Home Meds and New Rx's Prescriptions: New azithromycin [Zithromax Z-Nba] 250 mg tablet 250 mg PO DAILY 4 Days Qty: 4 0RF Rx Instructions: start tomorrow on 04/25/23. Do not take zofran for 10 days. Do take a probiotic for 10 days No Action methadone 10 mg/5 mL solution 100 mg PO QAM magnesium gluconate 27 mg magnesium (500 mg) tablet 27 mg PO BID Qty: 60 3RF clonazepam 1 mg tablet 1 mg PO BID Qty: 56 1RF calcitriol 0.5 mcg capsule 0.5 mcg PO BID Qty: 360 3RF Hold Instructions: Resume on 06/15/22. cyclobenzaprine 10 mg tablet 10 mg PO TID PRN (Reason: muscle spasm) Qty: 30 3RF diclofenac sodium 1 % gel 4 g topical QID Qty: 100 6RF Rx Instructions: apply to single knee, ankle, foot; for foot includes sole/toes/top of foot calcium carbonate [Tums] 200 mg calcium (500 mg) tablet,chewable 2,000 mg PO BID gabapentin 300 mg capsule 300 mg PO BID pantoprazole [Protonix] [address] for susp in packet 40 mg PO DAILY Qty: 30 0RF ondansetron 4 mg tablet,disintegrating 4 mg PO Q8H Qty: 5 0RF Discharge Instructions Instructions: Dyspnea (ED), Pneumonia (ED) Additional Instructions: 1. Start Zithromax 250 mg once a day for the next 4 days starting tomorrow. It lasts 10 days. Do not take Zofran for 10 days. Take a probiotic for the next 10 days. 2. Call your primary care provider for follow-up appointment and recheck and return to the emergency department for any new or worrisome symptoms such as dizziness, increasing chest pain or any concerns. Discharge Data Discharge Physician: Miroslava Sykes Medical Decision Making This is a 27-year-old male with a strong family history of coronary artery disease who presents with 2 days of respiratory symptoms including dyspnea on exertion and pleuritic chest pain. He has no history of thromboembolic disease or ACS and denies smoking, asthma or cocaine use. He has a reassuring exam. His lungs are clear he is not retracting. My plan is to obtain an EKG and blood work to evaluate for cardiac ischemia, anemia, electrolyte abnormalities and renal function. We will get a D-dimer and if positive I will obtain a CT angio if he has normal renal function. He is declining anything for pain currently. I will also obtain a chest x-ray. I did not hear any bronchospasm and I will test him for COVID influenza and RSV. His heart rate was 101 on arrival but he is normotensive and currently not tachycardic tachypneic or febrile. I anticipate he will likely be discharged home with outpatient follow-up. Differential Diagnosis Differential Diagnosis: ACS, pneumonia, PE, URI, bronchospasm Medical Records Medical records reviewed: Yes I reviewed the patient's medical records. Imaging Data Radiologic Study: Imaging: X-Ray (Chest x-ray) Radiologist's impression: Subtle right upper lobe increased markings which may be patchy infiltrate. No pleural effusions. Lab Data Lab results reviewed: Yes I reviewed the patient's lab results. ECG Data Attestation: I personally reviewed and interpreted this ECG (s) as follows: Prior ECG tracings: available for review HPI General Date/Time Provider Initiated Documentation: 04/24/23 12:09. Information obtained by: patient. HPI Narrative: Time seen was 1215 p.m. in bed 4. The patient is a 27-year-old male who was sent in from urgent care for chest pain and shortness of breath. The patient states that he has a strong family history of heart disease his father of an MN at 42 and his mother had a MN at 38. He does not smoke or use cocaine but does not know if he has elevated cholesterol. He presents with 2 days of substernal chest pain which is 7 out of 10 and nonradiating and aggravated by deep inspiration. He also has had shortness of breath with exertion and some lightheadedness. He denies any recent surgery or long trips he has no history of thromboembolic disease. 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 He denies any sore throat or earache. He does endorse a low-grade fever and tells me his fever was 101.5 at urgent care prior to arrival. He has not taken any medications for the pain. We believe he had a flu test at urgent care but that is not available. He states he has had COVID in the past and this feels similar. However he denies ever having chest pain and dyspnea on exertion in the past. He states his legs are chronically swollen and are unchanged from the baseline. He denies any rhinorrhea sore throat earache or productive cough. He has no history of asthma he does not use any inhalers. He tells me he was seen here recently for gallbladder disease and that he has gallstones he will be scheduling an elective cholecystectomy. Related Data Home Medications Medication Instructions Recorded Confirmed methadone 10 mg/5 mL oral solution 100 mg PO QAM 11/16/21 04/21/23 magnesium gluconate 27 mg 27 mg PO BID #60 tabs 11/08/22 04/21/23 magnesium (500 mg) tablet calcium carbonate 200 mg calcium 2,000 mg PO BID 02/02/23 04/21/23 (500 mg) chewable tablet (Tums) gabapentin 300 mg capsule 300 mg PO BID 02/02/23 04/21/23 pantoprazole 40 mg granules 40 mg PO DAILY #30 ea 02/13/23 04/21/23 delayed-release for susp in packet (Protonix) ondansetron 4 mg disintegrating 4 mg PO Q8H #5 tabs 03/22/23 04/21/23 tablet calcitriol 0.5 mcg capsule 0.5 mcg PO BID #360 caps 04/21/23 04/21/23 clonazepam 1 mg tablet 1 mg PO BID #56 tabs 04/21/23 04/21/23 cyclobenzaprine 10 mg tablet 10 mg PO TID PRN muscle spasm #30 04/21/23 04/21/23 tabs diclofenac sodium 1 % topical gel 4 g topical QID #100 grams 04/21/23 04/21/23 azithromycin 250 mg tablet 250 mg PO DAILY 4 days #4 tabs 04/24/23 (Zithromax Z-Nba) Previous Rx's Medication Instructions Recorded magnesium gluconate 27 mg 27 mg PO BID #60 tabs 11/08/22 magnesium (500 mg) tablet pantoprazole 40 mg granules 40 mg PO DAILY #30 ea 02/13/23 delayed-release for susp in packet (Protonix) ondansetron 4 mg disintegrating 4 mg PO Q8H #5 tabs 03/22/23 tablet calcitriol 0.5 mcg capsule 0.5 mcg PO BID #360 caps 04/21/23 clonazepam 1 mg tablet 1 mg PO BID #56 tabs 04/21/23 cyclobenzaprine 10 mg tablet 10 mg PO TID PRN muscle spasm #30 04/21/23 tabs diclofenac sodium 1 % topical gel 4 g topical QID #100 grams 04/21/23 azithromycin 250 mg tablet 250 mg PO DAILY 4 days #4 tabs 04/24/23 (Zithromax Z-Nba) Allergies Allergy/AdvReac Type Severity Reaction Status Date / Time codeine Allergy Intermediate Verified 04/24/23 09:59 Penicillins Allergy Skin Rash Verified 04/24/23 09:59 amoxicillin AdvReac Intermediate Nausea Verified 04/24/23 09:59 dextromethorphan AdvReac Intermediate Other (See Unverified 04/24/23 09:59 [From NyQuil] Comment) doxylamine [From NyQuil] AdvReac Intermediate Other (See Unverified 04/24/23 09:59 Comment) pseudoephedrine [From NyQuil] AdvReac Intermediate Other (See Unverified 04/24/23 09:59 Comment) General Stated Complaint: RespSymp ADRIANA: 3 Review of Systems Narrative: see hpi PFSH All Active Problems Fracture of tooth (Acute) Chest pain (Acute) Acid reflux disease (Chronic) Anterior chest wall pain (Acute) Post-viral cough syndrome (Acute) Pain in right upper arm (Acute) Cholelithiases (Acute) 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 (Acute) Inflammatory arthritis (Acute) Costochondritis (Acute 12/13/22) [facility] Cellulitis (Acute) Severe anxiety with panic (Chronic) Family history of coronary arteriosclerosis (Chronic) Father of MN at 50, mother had MN at 42 Elevated parathyroid hormone (Acute) Suicidal ideation (Acute) Depression (Chronic) Hypocalcemia (Chronic) Hypomagnesemia (Chronic) Depression (Chronic) Primary hyperparathyroidism (Chronic) Chronic constipation (Chronic) Multiple endocrine neoplasia type I (Chronic) Iatrogenic hypocalcemia (Acute) Abdominal pain (Acute) Common bile duct dilatation (Acute) Intrahepatic bile duct dilation (Acute) Abnormal CT scan, kidney (Acute) Sphincter of Oddi dysfunction (Chronic) Therapeutic opioid induced constipation (Acute) Pulmonary nodule 1 cm or greater in diameter (Chronic) Neck pain on left side (Acute) with shoulder, upper back pain.. torticollis, radiating into left hip/leg History of electrolyte imbalance (Acute) Complex medical condition (Chronic) Serious electrolyte imbalances, with gynecomastia, possible MEN Dx, CKD and anemia with baseline anxiety and Hx PTSD. CKD (chronic kidney disease) stage 2, GFR 60-89 ml/min (Acute) GFR 64-65, with Hx FLORESITA and GFR < 45 Gynecomastia, male (Acute) b/l, per CT (Jul 2022).. Possible 2' Methadone, Clnzpm (?). Surg eval (+)/No further action. 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 03/20/23 per pt Adopted: No Caregiver/Support person: No Foster care: No Household members: none Housing: apartment Number of Children: 0 Communication Needs: None Education Level: high school Do you need help understanding health information?: Never 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 and animals: Yes (Ally) Pets and animals: dog(s) Sexually active: No Do you think of yourself as: straight/heterosexual Current gender identity: male What is your relationship status?: How often do you talk on the phone with friends or family?: twice per week How often do you get together with friends or relatives?: never Do you belong to any clubs or organized social groups?: no Panel score (0-1 are the most socially isolated patients): 0 What type of physical activity do you participate in: walking Duration: 15-30 minutes/day Frequency: 5-6 times per week Maryam/Mosque: Restorationist Special maryam needs: No Seatbelt use: always Helmet use: Yes Helmet use: always Drive 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 local company hazmat 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 Exam Narrative Exam Narrative: The patient is well-developed well-nourished male who is nontoxic well-hydrated in no acute distress. He was normotensive. He was slightly tachycardic. He was not tachypneic or febrile his room air O2 sat was normal at 96%. He did not appear clinically intoxicated Const General: cooperative, healthy appearing, comfortable, no acute distress, well developed, well groomed and well hydrated Nutritional Appearance: average body habitus and well nourished Orientation: alert, awake and oriented x3 HENMT Head: normal to inspection, normocephalic and atraumatic Ears: hearing grossly normal bilaterally and external ears normal General nose exam: external nose normal, nares normal and no nasal discharge Face and sinus: normal facial exam, sinuses nontender and face symmetric Mouth: oral mucosae normal, lip normal, tongue normal, oropharynx normal, moist mucous membranes and other (Normal phonation. The patient is handling secretions.) Throat: posterior oropharynx normal and uvula midline Eyes General: appearance normal, both eyes and all related structures Eyelids: eyelids normal Conjunctivae: conjunctivae normal Sclera: sclerae normal Cornea: corneas normal Pupils: PERRL EOM: EOM intact bilaterally and No nystagmus Neck Neck: normal visual inspection, full ROM, no lymphadenopathy, no meningeal signs, trachea midline and supple Lymphatic: no lymphadenopathy noted Chest Chest: normal inspection of the chest Resp Effort & Inspection: normal respiratory effort, able to speak in complete sentences, no audible wheezes, no nasal flaring, no respiratory distress, no retractions, no stridor, not tachypneic, no tracheal deviation, no use of accessory muscles, No prolonged expiratory phase and other (Normal inspiratory to expiratory ratio.) Auscultation: clear to auscultation bilaterally, no rales, no rhonchi, no wheezes and no rubs Tactile Fremitus: tactile fremitus absent Cardio Jugular venous pressure: no JVD Palpation: normal PMI Rate: regular rate Rhythm: regular rhythm Heart Sounds: S1 normal, S2 normal, no gallops, no murmurs and no rubs Bruits: no abdominal aortic bruits GI Inspection: normal to inspection and non-distended Palpation: soft, no hepatosplenomegaly, no guarding and nontender Percussion: normal to percussion Auscultation: normal bowel sounds General: No CVA tenderness Back/Spine/Pelvis Back: no CVA tenderness and No back tenderness Cervical Spine: normal cervical lordosis, cervical ROM normal, No cervical muscular tenderness, No pain with cervical ROM, No cervical spinal tenderness and No step off deformity Thoracic/Lumbar Spine: thoracic and lumbar spine normal to inspection, No thoracic spinal tenderness and No lumbar spinal tenderness Skin General skin exam: no rashes or lesions noted, turgor normal, no petechiae, no purpura and other (Skin is normal for ethnicity.) Lesions: no lesions Rashes: no rashes Trauma: no lacerations or abrasions Neuro General: patient alert, patient awake, patient oriented x3, moves all extremities, no meningeal signs, no focal motor deficits and CN's II-XI intact bilaterally Cranial Nerves: CN's II-XI intact bilaterally, PERRL, accommodation normal, EOM intact bilaterally, no nystagmus, facial strength normal, tongue midline, hearing normal and no nystagmus Cognition: normal cognition Speech: speech normal Gait: normal gait Motor: muscle tone normal throughout and strength 5/5 throughout Sensory Exam: no sensory deficits noted Extrem General: normal to inspection, full ROM, capillary refill normal, no clubbing, cyanosis or edema and no calf tenderness Psych Appearance: grossly normal Affect: normal affect Attitude: cooperative Thought Process: normal Thought Content: normal Insight: insight good Judgment: judgment good Other: The patient appears to have capacity make medical decisions. Course Reevaluation(s) Time: 14:50 Reevaluation: I have updated the patient on the findings of a small pneumonia. I have started him on Zithromax. His EKG does not demonstrate any QT prolongation and I have advised him not to take Siva while on Zithromax. I have advised him to follow-up with his primary care provider and to take a probiotic while on antibiotics. I have advised him to return here for any new or worrisome symptoms. The patient voiced understanding agree with the discharge plan. All his questions and concerns were addressed prior to discharge Vital Signs Vital signs: Vital Signs Temperature 36.9 C 04/24/23 12:02 Pulse 101 H 04/24/23 12:02 Respiratory Rate 16 04/24/23 12:02 Blood Pressure 135/89 04/24/23 12:02 Pulse Oximetry 96 04/24/23 12:02 Temperature 36.9 C 04/24/23 12:02 Temperature Source Oral 04/24/23 12:02 Pulse 98 H 04/24/23 12:11 Respiratory Rate 16 04/24/23 12:02 Respiratory Effort Normal 04/24/23 12:10 Respiratory Depth Normal 04/24/23 12:10 Blood Pressure 118/61 04/24/23 12:11 Blood Pressure Mean 77 04/24/23 12:11 Blood Pressure Position Sitting 04/24/23 12:02 Pulse Oximetry 96 04/24/23 12:02 Oxygen Delivery Method Room Air 04/24/23 12:02 Oxygen Flow Rate 0 04/24/23 12:02 Pain Level 6 04/24/23 12:02
[2023-04-24] MEDS: Aspirin 81 MG CHEW 324 MG CH (12:30)
[2023-04-24 12:55] LABS: Abs Immature Grans 0.05 10^3/uL (0.0-0.06); Absolute Eosinophil Count 0.12 10^3/uL (0.0-0.7); Absolute Monocyte Count 0.99 10^3/uL (0.1-0.8); Absolute Neutrophil Count 10.59 10^3/uL (1.2-6.7); Basophils % 0.1; Eosinophils % 0.9; HCT 36.2 % (40.0-50.0); HGB 12.1 g/dL (13.5-17.5); Immature Grans % 0.4; MCH 30.2 pg (27.0-33.0); MCHC 33.4 % (32.0-36.0); MCV 90 fL (80-95); MPV 10.9 fL (8.0-11.0); Monocytes % 7.4; Neutrophils % 79.2; Platelet Count 268 10^3/uL (130-400); RBC 4.01 10^6/uL (4.36-5.78); RDW 12.3 % (11.8-14.1); RDW-SD 40.6 fL; WBC 13.37 10^3/uL (4.4-10.8)
[2023-04-24 12:56] LABS: Absolute Basophil Count 0.01 10^3/uL (0.0-0.2)
[2023-04-24 13:10] LABS: Calculated LDL 93 mg/dL (<100); Cholesterol 188 mg/dL (<200); HDL Cholesterol 53 mg/dL (40-60); Triglyceride 210 mg/dL (<150)
[2023-04-24 13:17] LABS: ALT 58 U/L (16-63); AST 27 U/L (15-37); Albumin 3.3 g/dL (3.4-5.0); Alkaline Phosphatase 104 U/L (46-116); Anion Gap 4.4 mmol/L (3-11); BUN 13 mg/dL (7-18); Bilirubin, Total 0.3 mg/dL (0.2-1.0); CO2 31.6 mmol/L (21.0-32.0); CREATININE 1.5 mg/dL (0.70-1.30); Calcium 9.4 mg/dL (8.5-10.1); Chloride 100 mmol/L (98-107); Estimated GFR 64.23 (mL/min/1.73m2); Glucose 101 mg/dL (74-106); Magnesium 1.8 mg/dL (1.8-2.4); NT-proBNP 15 pg/mL (<300); Sodium 136 mmol/L (136-145); Total Protein 7.8 g/dL (6.4-8.2); Troponin I < 50 ng/L (<or=60)
[2023-04-24 13:17] LABS: COVID-19 PCR Negative (Negative); Influenza A PCR Negative (Negative); Influenza B PCR Negative (Negative); RSV PCR Negative (Negative); Source Nasopharynx
[2023-04-24 13:34] LABS: D-Dimer 350 ng/mlFEU (<500)
[2023-04-24] MEDS: Azithromycin 250 MG TAB 500 MG PO (14:56)
== END 2023-04-24 15:06 | disposition home or self-care (01) ==
PROVIDERS: Emergency Provider Emergency Medicine Emergency Medical Services; PCP Family Medicine
DX: J16.8 Pneumonia due to other specified infectious organisms (principal); R06.02 Shortness of breath; Z20.822 Contact with and (suspected) exposure to COVID-19
CPT/HCPCS: 80053; 80061; 87637; 93005; 99284; 71046; 83735; 83880; 84484; 85025; 85379; 93010

== ENCOUNTER 2023-04-28 02:23 | Emergency (ER) | payer OTHER, SELFPAY ==
[2023-04-28 02:26] VITALS: BP 127/81; PULSE 80; RESP 18; TEMP 36.6; O2SAT 98
--- NOTE | 2023-04-28 02:53 | W.ED.GENAD ---
Discharge Plan Disposition Patient Disposition: Home Discharge Details Chief Complaint: GenMedical Clinical Impression: Facial twitching, At high risk for hypocalcemia Primary Care Provider: Brendon Vivar ED Provider: Richy Eagle Home Meds and New Rx's Prescriptions: No Action methadone 10 mg/5 mL solution 100 mg PO QAM magnesium gluconate 27 mg magnesium (500 mg) tablet 27 mg PO BID Qty: 60 3RF clonazepam 1 mg tablet 1 mg PO BID Qty: 56 1RF calcitriol 0.5 mcg capsule 0.5 mcg PO BID Qty: 360 3RF Hold Instructions: Resume on 06/15/22. cyclobenzaprine 10 mg tablet 10 mg PO TID PRN (Reason: muscle spasm) Qty: 30 3RF diclofenac sodium 1 % gel 4 g topical QID Qty: 100 6RF Rx Instructions: apply to single knee, ankle, foot; for foot includes sole/toes/top of foot calcium carbonate [Tums] 200 mg calcium (500 mg) tablet,chewable 2,000 mg PO BID gabapentin 300 mg capsule 300 mg PO BID cefpodoxime 200 mg tablet 200 mg PO Q12H Patient Comments: TAKE ONE TABLET BY MOUTH EVERY 12 HOURS FOR 7 DAYS doxycycline monohydrate 100 mg tablet 100 mg PO BID Patient Comments: TAKE ONE TABLET BY MOUTH TWICE A DAY FOR 7 DAYS pantoprazole [Protonix] [address] for susp in packet 40 mg PO DAILY Qty: 30 0RF ondansetron 4 mg tablet,disintegrating 4 mg PO Q8H Qty: 5 0RF Discharge Instructions Instructions: Hypocalcemia (ED) Additional Instructions: At this time your symptoms appear consistent with mild hypocalcemia. I suspect this is because you were switched from azithromycin to doxycycline. Unfortunately doxycycline binds to calcium, rendering its absorption less effective. Please stop taking the doxycycline at this time as your symptoms of pneumonia and your skin lesion have improved. Continue taking the cephalosporin that you are prescribed. Please continue to take your regular calcium and magnesium daily, and for the next 48 hours you can take 2000 mg of calcium twice daily. If you notice any worsening of your symptoms, or any new symptoms such as vomiting, diarrhea, fever, chills, shortness of breath, chest pain, numbness, weakness, or fainting , please return immediately to the emergency department for reevaluation. Please follow up with your primary care provider as soon as possible for reassessment and reevaluation. As always, it was a pleasure participating in your medical care today. Referrals: Brendon Vivar DO [Primary Care Provider] - Medical Decision Making This is a 27-year-old male with a past medical history significant for anxiety, depression, high cholesterol, men type I, multiple electrolyte abnormalities with subsequent [place]athyroide[place] on 03/26/2022 [place] [facility], PTSD, GERD who was diagnosed with mild pneumonia on 04/24/2023, he was started on azithromycin at this time, and then went to [facility] a day or so later, where he was transitioned from azithromycin to doxycycline treatment. He has been taking doxycycline for the last 2 days. There is also small skin lesion that he was being treated for with the doxycycline and a cephalosporin. He is continue to take his calcium and magnesium as prescribed, however over the last 24 to 36 hours he has noticed that he feels like he did when his calcium was low in the past. He denies any vomiting or diarrhea. No other complaints at this time. His cough has resolved. The skin lesion on his groin has resolved. He denies any fever or chills. Exam demonstrates a well-appearing male. He subjectively feels slightly weak, he has an occasional twitch in his right cheek, but negative for Chvostek and Trousseau sign. Vital signs otherwise stable. No signs of acute distress otherwise. Lungs are clear, no clinical crackles or rails. Groin where the previous lesion was has completely resolved. Symptomatically the patient does not show any current clinical evidence of significant pneumonia or abscess. I suspect what has occurred is that the doxycycline that he was transition to his binding with his notable high calcium supplements and has been causing diminished absorption. We will recommend stopping doxycycline at this time as MRSA and atypical causes of infection have seemingly resolved. Recommend continuing the cefepime to completion of prescription. Recommend doubling Tums dosing for the next 24 to 48 hours. We will give his nighttime dose of 2000 mg of Tums here, as well as supplemental magnesium. Otherwise patient shows no signs of instability. Patient will be discharged home. Discussed red flags for which to return. I have extensively reviewed the treatment plan and discharge instructions with the patient. I have addressed all patient concerns at this time. The patient was made aware of what symptoms to monitor for that would warrant a return to the emergency department. Discussed the plan with the patient, they demonstrate verbal understanding and agreement with our assessment and plan at this time. The documentation in this chart was dictated using [employer] dictation software. Please excuse any dictation errors. HPI General Date/Time Provider Initiated Documentation: 04/28/23 02:33. HPI Narrative: This is a 27-year-old male with a past medical history significant for anxiety, depression, high cholesterol, men type I, multiple electrolyte abnormalities with subsequent parathyroidectomy on 03/26/2022 [place] [facility], PTSD, GERD who was diagnosed with mild pneumonia on 04/24/2023, he was started on azithromycin at this time, and then went to [facility] a day or so later, where he was transitioned from azithromycin to doxycycline treatment. He has been taking doxycycline for the last 2 days. There is also small skin lesion that he was being treated for with the doxycycline and a cephalosporin. He is continue to take his calcium and magnesium as prescribed, however over the last 24 to 36 hours he has noticed that he feels like he did when his calcium was low in the past. He denies any vomiting or diarrhea. No other complaints at this time. His cough has resolved. The skin lesion on his groin has resolved. He denies any fever or chills. Related Data Home Medications Medication Instructions Recorded Confirmed methadone 10 mg/5 mL oral solution 100 mg PO QAM 11/16/21 04/28/23 magnesium gluconate 27 mg 27 mg PO BID #60 tabs 11/08/22 04/28/23 magnesium (500 mg) tablet calcium carbonate 200 mg calcium 2,000 mg PO BID 02/02/23 04/28/23 (500 mg) chewable tablet (Tums) gabapentin 300 mg capsule 300 mg PO BID 02/02/23 04/28/23 pantoprazole 40 mg granules 40 mg PO DAILY #30 ea 02/13/23 04/28/23 delayed-release for susp in packet (Protonix) ondansetron 4 mg disintegrating 4 mg PO Q8H #5 tabs 03/22/23 04/28/23 tablet calcitriol 0.5 mcg capsule 0.5 mcg PO BID #360 caps 04/21/23 04/28/23 clonazepam 1 mg tablet 1 mg PO BID #56 tabs 04/21/23 04/28/23 cyclobenzaprine 10 mg tablet 10 mg PO TID PRN muscle spasm #30 04/21/23 04/28/23 tabs diclofenac sodium 1 % topical gel 4 g topical QID #100 grams 04/21/23 04/28/23 cefpodoxime 200 mg tablet 200 mg PO Q12H 04/28/23 04/28/23 doxycycline monohydrate 100 mg 100 mg PO BID 04/28/23 04/28/23 tablet Previous Rx's Medication Instructions Recorded magnesium gluconate 27 mg 27 mg PO BID #60 tabs 11/08/22 magnesium (500 mg) tablet pantoprazole 40 mg granules 40 mg PO DAILY #30 ea 02/13/23 delayed-release for susp in packet (Protonix) ondansetron 4 mg disintegrating 4 mg PO Q8H #5 tabs 03/22/23 tablet calcitriol 0.5 mcg capsule 0.5 mcg PO BID #360 caps 04/21/23 clonazepam 1 mg tablet 1 mg PO BID #56 tabs 04/21/23 cyclobenzaprine 10 mg tablet 10 mg PO TID PRN muscle spasm #30 04/21/23 tabs diclofenac sodium 1 % topical gel 4 g topical QID #100 grams 04/21/23 Allergies Allergy/AdvReac Type Severity Reaction Status Date / Time codeine Allergy Intermediate Verified 04/28/23 02:28 Penicillins Allergy Skin Rash Verified 04/28/23 02:28 amoxicillin AdvReac Intermediate Nausea Verified 04/28/23 02:28 dextromethorphan AdvReac Intermediate Other (See Unverified 04/28/23 02:28 [From NyQuil] Comment) doxylamine [From NyQuil] AdvReac Intermediate Other (See Unverified 04/28/23 02:28 Comment) pseudoephedrine [From NyQuil] AdvReac Intermediate Other (See Unverified 04/28/23 02:28 Comment) General Stated Complaint: GenMedical ADRIANA: 5 Review of Systems All systems reviewed & are unremarkable except as noted in HPI and below PFSH All Active Problems At high risk for hypocalcemia (Acute) Facial twitching (Acute) Fracture of tooth (Acute) Chest pain (Acute) Acid reflux disease (Chronic) Anterior chest wall pain (Acute) Post-viral cough syndrome (Acute) Pain in right upper arm (Acute) Cholelithiases (Acute) 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 (Acute) Inflammatory arthritis (Acute) Costochondritis (Acute 12/13/22) [facility] Cellulitis (Acute) Severe anxiety with panic (Chronic) Family history of coronary arteriosclerosis (Chronic) Father of TX at 50, mother had TX at 42 Elevated parathyroid hormone (Acute) Suicidal ideation (Acute) Depression (Chronic) Hypocalcemia (Chronic) Hypomagnesemia (Chronic) Depression (Chronic) Primary hyperparathyroidism (Chronic) Chronic constipation (Chronic) Multiple endocrine neoplasia type I (Chronic) Iatrogenic hypocalcemia (Acute) Abdominal pain (Acute) Common bile duct dilatation (Acute) Intrahepatic bile duct dilation (Acute) Abnormal CT scan, kidney (Acute) Sphincter of Oddi dysfunction (Chronic) Therapeutic opioid induced constipation (Acute) Pulmonary nodule 1 cm or greater in diameter (Chronic) Neck pain on left side (Acute) with shoulder, upper back pain.. torticollis, radiating into left hip/leg History of electrolyte imbalance (Acute) Complex medical condition (Chronic) Serious electrolyte imbalances, with gynecomastia, possible MEN Dx, CKD and anemia with baseline anxiety and Hx PTSD. CKD (chronic kidney disease) stage 2, GFR 60-89 ml/min (Acute) GFR 64-65, with Hx FLORESITA and GFR < 45 Gynecomastia, male (Acute) b/l, per CT (Jul 2022).. Possible 2' Methadone, Clnzpm (?). Surg eval (+)/No further action. 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 03/20/23 per pt Adopted: No Caregiver/Support person: No Foster care: No Household members: none Housing: apartment Number of Children: 0 Communication Needs: None Education Level: high school Do you need help understanding health information?: Never 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 and animals: Yes (Ally) Pets and animals: dog(s) Sexually active: No Do you think of yourself as: straight/heterosexual Current gender identity: male What is your relationship status?: How often do you talk on the phone with friends or family?: twice per week How often do you get together with friends or relatives?: never Do you belong to any clubs or organized social groups?: no Panel score (0-1 are the most socially isolated patients): 0 What type of physical activity do you participate in: walking Duration: 15-30 minutes/day Frequency: 5-6 times per week Maryam/Rastafarian: Alevism Special maryam needs: No Seatbelt use: always Helmet use: Yes Helmet use: always Drive 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 3.ENT: Atraumatic external nose and ears. Moist MM. Neck: Symmetric, trachea midline, No thyromegaly. 4.CVS: +S1/S2, No murmurs or gallops. Peripheral pulses 2+ and equal in all extremities. Brisk capillary refill in all extremities. 5.RESP: Unlabored respiratory effort. Clear to auscultation bilaterally. No wheezes rales or rhonchi 6.GI: Soft, Nontender/Nondistended, No hepatosplenomegaly. No guarding or rebound. 7.MSK: Normocephalic/Atraumatic, Extremities w/o deformity or ttp No cyanosis or clubbing, Normal movement of all extremities. No hyperreflexia. No tetany. Negative Chvostek and Trousseau sign. Patient does seem to have a very mild occasional twitch in his right cheek without stimulation though. 8.Skin: Warm, Dry. No rashes or lesions. The right groin demonstrates no redness erythema drainage discharge or swelling. 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 Sensation grossly intact, no focal neurologic deficits. 10.Psych: (AAO) x3. Appropriate mood and affect Course Vital Signs Vital signs: Vital Signs Temperature 36.6 C 04/28/23 02:26 Pulse 80 04/28/23 02:26 Respiratory Rate 18 04/28/23 02:26 Blood Pressure 127/81 04/28/23 02:26 Pulse Oximetry 98 04/28/23 02:26 Temperature 36.6 C 04/28/23 02:26 Temperature Source Temporal Artery Scan 04/28/23 02:26 Pulse 80 04/28/23 02:26 Respiratory Rate 18 04/28/23 02:26 Respiratory Effort Normal 04/28/23 02:31 Blood Pressure 127/81 04/28/23 02:26 Blood Pressure Position Sitting 04/28/23 02:26 Pulse Oximetry 98 04/28/23 02:26 Pain Level 0 04/28/23 02:26
[2023-04-28] MEDS: Calcium Carbonate *TUMS* 500 MG CHEW 2000 MG PO (03:00)
[2023-04-28] MEDS: Magnesium Oxide 400 MG TAB 800 MG PO (03:00)
== END 2023-04-28 03:01 | disposition home or self-care (01) ==
PROVIDERS: Emergency Provider Student in an Organized Health Care Education/Training Program; PCP Family Medicine
DX: G51.4 Facial myokymia (principal); E83.51 Hypocalcemia
CPT/HCPCS: 99283

== ENCOUNTER 2023-05-03 07:10 | Emergency (ER) | payer OTHER, SELFPAY ==
[2023-05-03 07:12] VITALS: BP 154/90; PULSE 102; RESP 18; TEMP 36.6; O2SAT 97
--- NOTE | 2023-05-03 07:15 | DI.CT_ITS ---
Exam(s) CT ABDOMEN PELVIS W EXAM: CT ABDOMEN PELVIS W CLINICAL HISTORY: right lower abd pain diarrhea, groin pain. TECHNIQUE: Imaging Protocol: Axial computed tomography images with coronal and sagittal reformatted images were created and reviewed CONTRAST MATERIAL: Intravenous: Omnipaque 350 Contrast volume:100 ml Oral: yes / no COMPARISON: CT CT CHEST PE ABD PELVIS W from 07/04/[address] ABDOMEN PELVIS W from 04/11/[address] ABDOMEN PELVIS W from 04/19/2023 FINDINGS: ABDOMEN and PELVIS: Lung Bases: No acute findings. Liver: Normal density. No measurable mass. Gallbladder and biliary tract: No radiodense calculus or dilation. Pancreas: Normal density. No abnormal calcifications or inflammatory process. No evidence of mass. Spleen: Normal. Kidneys: Normal size, contour and axis. No radiodense stones. No obstructive uropathy. No suspicious masses seen. Left renal cyst upper pole. No follow-up recommended. Adrenal glands: No masses seen. Vasculature: Abdominal aorta non-dilated. Soft tissues: Tiny fatty containing right inguinal hernia, unchanged. No abnormal stranding. Bladder: No gross wall thickening. No calculi.No focal mass. Bowel: Large quantity of stool. No obstruction. No bowel wall thickening. Appendix normal. Peritoneal cavity: No ascites. No focal collection or mesenteric inflammatory response. Bones: Unremarkable for age. Reproductive organs: Within normal limits. Lymph nodes: Unremarkable. IMPRESSION:: Increased quantity of stool. No acute abnormality. RADIATION DOSE DELIVERED: Total DLP DATA REPOSITORY: All CT scans at this facility are submitted to the National Radiology Data Registry (NRDR) Dose Index Registry (DIR) with the [employer] (ACR). RADIATION OPTIMIZATION: All CT scans at this facility use at least one of these dose optimization te chniques: automated exposure control; mA and/or kV adjustment per patient size (includes targeted exa ms where dose is matched to clinical indication); or iterative reconstruction.
--- NOTE | 2023-05-03 07:31 | ED.GENADUL_ITS ---
Discharge Plan Disposition Patient Disposition: Home Condition: Improving Discharge Details Chief Complaint: Abd Prob Clinical Impression: Abdominal pain Primary Care Provider: Brendon Vivar ED Provider: Ajay Kennedy Home Meds and New Rx's Prescriptions: No Action methadone 10 mg/5 mL solution 100 mg PO QAM magnesium gluconate 27 mg magnesium (500 mg) tablet 27 mg PO BID Qty: 60 3RF clonazepam 1 mg tablet 1 mg PO BID Qty: 56 1RF calcitriol 0.5 mcg capsule 0.5 mcg PO BID Qty: 360 3RF Hold Instructions: Resume on 06/15/22. cyclobenzaprine 10 mg tablet 10 mg PO TID PRN (Reason: muscle spasm) Qty: 30 3RF diclofenac sodium 1 % gel 4 g topical QID Qty: 100 6RF Rx Instructions: apply to single knee, ankle, foot; for foot includes sole/toes/top of foot calcium carbonate [Tums] 200 mg calcium (500 mg) tablet,chewable 2,000 mg PO BID gabapentin 300 mg capsule 300 mg PO BID cefpodoxime 200 mg tablet 200 mg PO Q12H Hold Instructions: Changed by Provider Patient Comments: TAKE ONE TABLET BY MOUTH EVERY 12 HOURS FOR 7 DAYS pantoprazole [Protonix] [address] for susp in packet 40 mg PO DAILY Qty: 30 0RF ondansetron 4 mg tablet,disintegrating 4 mg PO Q8H Qty: 5 0RF Discharge Instructions Instructions: Abdominal Pain (ED) Additional Instructions: Please follow-up with your primary care physician. You were found to have an abnormality on your left kidney seen on CT scan. We are recommending close follow-up with your primary care physician and possible further imaging as an outpatient. Please return to the emergency department for any worsening symptoms. Medical Decision Making 27-year-old male presents with 2 days of lower abdominal discomfort right lower quadrant in nature associate with nausea, diarrhea multiple episodes over the last day, associated with right groin discomfort, noted to be tachycardic on arrival, abdomen soft nontender nondistended nonperitoneal, normal external genitalia exam, given multiple doses of antibiotics recently including doxycycline for pneumonia and clindamycin for oral infection must consider C. difficile diarrhea versus viral gastroenteritis versus colitis lower suspicion for appendicitis versus hernia versus foodborne illness must also consider electrolyte derangement. Will obtain basic labs imaging fluids antiemetics analgesia close reassessment 9: 59 patient resting comfortably no acute distress. Hemodynamically stable. Incidental kidney lesion present on CT, this is unchanged from prior imaging, likely renal cyst. Mild FLORESITA consider related to recent diarrhea and dehydration. Home care instructions or return precautions given. Patient will follow-up with primary care physician. HPI General Date/Time Provider Initiated Documentation: 05/03/23 07:19 . HPI Narrative: 27-year-old male presents with abdominal pain right lower quadrant as well as nausea and diarrhea over the last couple of days, recent completed 2 courses of antibiotic including doxycycline for pneumonia and clindamycin for an oral infection, also endorses discomfort in his right groin region. No urinary symptoms. Related Data Home Medications Medication Instructions Recorded Confirmed methadone 10 mg/5 mL oral solution 100 mg PO QAM 11/16/21 05/03/23 magnesium gluconate 27 mg 27 mg PO BID #60 tabs 11/08/22 05/03/23 magnesium (500 mg) tablet calcium carbonate 200 mg calcium 2,000 mg PO BID 02/02/23 05/03/23 (500 mg) chewable tablet (Tums) gabapentin 300 mg capsule 300 mg PO BID 02/02/23 05/03/23 pantoprazole 40 mg granules 40 mg PO DAILY #30 ea 02/13/23 05/03/23 delayed-release for susp in packet (Protonix) ondansetron 4 mg disintegrating 4 mg PO Q8H #5 tabs 03/22/23 05/03/23 tablet calcitriol 0.5 mcg capsule 0.5 mcg PO BID #360 caps 04/21/23 05/03/23 clonazepam 1 mg tablet 1 mg PO BID #56 tabs 04/21/23 05/03/23 cyclobenzaprine 10 mg tablet 10 mg PO TID PRN muscle spasm #30 04/21/23 05/03/23 tabs diclofenac sodium 1 % topical gel 4 g topical QID #100 grams 04/21/23 05/03/23 cefpodoxime 200 mg tablet 200 mg PO Q12H 04/28/23 05/03/23 Previous Rx's Medication Instructions Recorded magnesium gluconate 27 mg 27 mg PO BID #60 tabs 11/08/22 magnesium (500 mg) tablet pantoprazole 40 mg granules 40 mg PO DAILY #30 ea 02/13/23 delayed-release for susp in packet (Protonix) ondansetron 4 mg disintegrating 4 mg PO Q8H #5 tabs 03/22/23 tablet calcitriol 0.5 mcg capsule 0.5 mcg PO BID #360 caps 04/21/23 clonazepam 1 mg tablet 1 mg PO BID #56 tabs 04/21/23 cyclobenzaprine 10 mg tablet 10 mg PO TID PRN muscle spasm #30 04/21/23 tabs diclofenac sodium 1 % topical gel 4 g topical QID #100 grams 04/21/23 Allergies Allergy/AdvReac Type Severity Reaction Status Date / Time codeine Allergy Intermediate Verified 05/03/23 07:17 Penicillins Allergy Skin Rash Verified 05/03/23 07:17 amoxicillin AdvReac Intermediate Nausea Verified 05/03/23 07:17 dextromethorphan AdvReac Intermediate Other (See Unverified 05/03/23 07:17 [From NyQuil] Comment) doxylamine [From NyQuil] AdvReac Intermediate Other (See Unverified 05/03/23 07:17 Comment) pseudoephedrine [From NyQuil] AdvReac Intermediate Other (See Unverified 05/03/23 07:17 Comment) General Stated Complaint: Abd Prob ADRIANA: 3 Review of Systems Narrative: Review of Systems Constitutional: negative Eyes: negative ENT: negative Cardiovascular: negative Respiratory: negative Gastrointestinal: Nausea, diarrhea : Groin pain Musculoskeletal: negative Skin: negative Neurologic: negative Psych: negative PFSH All Active Problems (Updated 05/03/23 @ 10:05 by Ajay Kennedy MD) Abdominal pain (Acute) At high risk for hypocalcemia (Acute) Facial twitching (Acute) Fracture of tooth (Acute) Chest pain (Acute) Acid reflux disease (Chronic) Anterior chest wall pain (Acute) Post-viral cough syndrome (Acute) Pain in right upper arm (Acute) Cholelithiases (Acute) 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 (Acute) Inflammatory arthritis (Acute) Costochondritis (Acute 12/13/22) [facility] ED Cellulitis (Acute) Severe anxiety with panic (Chronic) Family history of coronary arteriosclerosis (Chronic) Father of [place] at 50, mother had [place] at 42 Elevated parathyroid hormone (Acute) Suicidal ideation (Acute) Depression (Chronic) Hypocalcemia (Chronic) Hypomagnesemia (Chronic) Depression (Chronic) Primary hyperparathyroidism (Chronic) Chronic constipation (Chronic) Multiple endocrine neoplasia type I (Chronic) Iatrogenic hypocalcemia (Acute) Abdominal pain (Acute) Common bile duct dilatation (Acute) Intrahepatic bile duct dilation (Acute) Abnormal CT scan, kidney (Acute) Sphincter of Oddi dysfunction (Chronic) Therapeutic opioid induced constipation (Acute) Pulmonary nodule 1 cm or greater in diameter (Chronic) Neck pain on left side (Acute) with shoulder, upper back pain.. torticollis, radiating into left hip/leg History of electrolyte imbalance (Acute) Complex medical condition (Chronic) Serious electrolyte imbalances, with gynecomastia, possible MEN Dx, CKD and anemia with baseline anxiety and Hx PTSD. CKD (chronic kidney disease) stage 2, GFR 60-89 ml/min (Acute) GFR 64-65, with Hx FLORESITA and GFR < 45 Gynecomastia, male (Acute) b/l, per CT (Jul 2022).. Possible 2' Methadone, Clnzpm (?). Surg eval (+)/No further action. 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 03/20/23 per pt Adopted: No Caregiver/Support person: No Foster care: No Household members: none Housing: apartment Number of Children: 0 Communication Needs: None Education Level: high school Do you need help understanding health information?: Never 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 and animals: Yes (Ally) Pets and animals: dog(s) Sexually active: No Do you think of yourself as: straight/heterosexual Current gender identity: male What is your relationship status?: How often do you talk on the phone with friends or family?: twice per week How often do you get together with friends or relatives?: never Do you belong to any clubs or organized social groups?: no Panel score (0-1 are the most socially isolated patients): 0 What type of physical activity do you participate in: walking Duration: 15-30 minutes/day Frequency: 5-6 times per week Maryam/Confucianism: Orthodox Special maryam needs: No Seatbelt use: always Helmet use: Yes Helmet use: always Drive 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 Exam Narrative Exam Narrative: Physical Examination General: alert, awake, cooperative, resting comfortably, no acute distress HEENT: normocephalic, atraumatic; PERRL, EOM intact, conjunctiva normal; no nasal discharge; moist mucous membranes, oral and pharyngeal mucosa normal, tolerating secretions Neck: supple, trachea midline; full ROM Chest: normal to inspection Respiratory: normal respiratory effort, speaking in full sentences, clear to auscultation, no wheezing, rales or rhonchi Cardiac: Mild tachycardia, regular rhythm, S1S2 intact, no murmurs rubs or gallops GI: abdomen soft, non-tender, non-distended; no palpable mass or hepatosplenomegaly : Normal external genitalia, normal rugae, normal cremasterics reflex, nonpainful testes, no appreciable inguinal hernia Skin: no lesions, rashes or trauma appreciated Neuro: AAOx3, normal speech, moving all extremities Psych: Appropriate mood and affect Course Vital Signs Vital signs: Vital Signs Temperature 36.6 C 05/03/23 07:12 Pulse 102 H 05/03/23 07:12 Respiratory Rate 18 05/03/23 07:12 Blood Pressure 154/90 H 05/03/23 07:12 Pulse Oximetry 97 05/03/23 07:12 Temperature 36.6 C 05/03/23 07:12 Temperature Source Oral 05/03/23 07:12 Pulse 102 H 05/03/23 07:12 Respiratory Rate 18 05/03/23 07:12 Respiratory Effort Normal 05/03/23 07:15 Blood Pressure 154/90 H 05/03/23 07:12 Blood Pressure Position Sitting 05/03/23 07:12 Pulse Oximetry 97 05/03/23 07:12 Oxygen Delivery Method Room Air 05/03/23 07:12 Oxygen Flow Rate 0 05/03/23 07:12 Pain Level 5 05/03/23 07:12
[2023-05-03 07:49] LABS: Abs Immature Grans 0.01 10^3/uL (0.0-0.06); Absolute Basophil Count 0.04 10^3/uL (0.0-0.2); Absolute Lymphocyte Count 1.73 10^3/uL (1.2-3.4); Absolute Monocyte Count 0.77 10^3/uL (0.1-0.8); Absolute Neutrophil Count 4.49 10^3/uL (1.2-6.7); Basophils % 0.6; Eosinophils % 2.8; HCT 38.3 % (40.0-50.0); HGB 12.8 g/dL (13.5-17.5); Immature Grans % 0.1; Lymphocytes % 23.9; MCH 30.3 pg (27.0-33.0); MCHC 33.4 % (32.0-36.0); MCV 91 fL (80-95); MPV 10.7 fL (8.0-11.0); Monocytes % 10.6; Platelet Count 282 10^3/uL (130-400); RBC 4.23 10^6/uL (4.36-5.78); RDW 12.2 % (11.8-14.1); RDW-SD 40.2 fL; WBC 7.24 10^3/uL (4.4-10.8)
[2023-05-03] MEDS: Normal Saline 1,000 ML 1000 ML IV (07:51)
[2023-05-03] MEDS: Ondansetron 4 MG/2 ML VIAL IVP (07:52)
[2023-05-03] MEDS: Ketorolac 15 MG/ML VIAL IVP (07:52)
[2023-05-03 08:05] LABS: ALT 28 U/L (16-63); AST 26 U/L (15-37); Albumin 3.6 g/dL (3.4-5.0); Alkaline Phosphatase 100 U/L (46-116); Anion Gap 6.9 mmol/L (3-11); BUN 25 mg/dL (7-18); Bilirubin, Total 0.3 mg/dL (0.2-1.0); CO2 31.1 mmol/L (21.0-32.0); Calcium 11.3 mg/dL (8.5-10.1); Chloride 99 mmol/L (98-107); Estimated GFR 45.48 (mL/min/1.73m2); Glucose 128 mg/dL (74-106); Potassium 3.7 mmol/L (3.5-5.1); Sodium 137 mmol/L (136-145); Total Protein 8.5 g/dL (6.4-8.2)
[2023-05-03 08:09] VITALS: O2SAT 93
[2023-05-03 08:10] VITALS: O2SAT 98
[2023-05-03 08:12] VITALS: O2SAT 94
[2023-05-03 08:30] VITALS: PULSE 69; RESP 18; O2SAT 97
[2023-05-03] MEDS: Normal Saline - Diluent 50 ML VIAL IJ (08:35)
[2023-05-03] MEDS: Omnipaque 350 MG/ML 100 ML BTL IJ (08:36)
[2023-05-03] MEDS: Normal Saline Flush 10 ML SYR IVP (08:40)
--- NOTE | 2023-05-03 08:58 | DI.VRAD_ITS ---
PROCEDURE INFORMATION: Exam: CT Abdomen And Pelvis With Contrast Exam date and time: 05/03/2023 8:34 AM Age: 27 years old Clinical indication: Other: Right lower abd pain diarrhea, groin pain TECHNIQUE: Imaging protocol: Computed tomography of the abdomen and pelvis with contrast. Contrast material: MNIPAQUE 350; Contrast volume: 100 ml; Contrast route: INTRAVENOUS (IV); COMPARISON: CT ABDOMEN PELVIS W 04/19/2023 8:54 AM FINDINGS: Liver: Normal. No mass. Gallbladder and bile ducts: Normal. No calcified stones. No ductal dilation. Pancreas: Normal. No ductal dilation. Spleen: Normal. No splenomegaly. Adrenal glands: Normal. No mass. Kidneys and ureters: There is no evidence of renal or ureteral calcifications. 16 mm low-attenuation area in the medial left kidney. Thirty-two Hounsfield units. It was present on the prior study.. Stomach and bowel: Findings consistent with constipation. Appendix: Normal appendix. Series 4, image 58 -65. Intraperitoneal space: Unremarkable. No free air. No significant fluid collection. Vasculature: Unremarkable. No abdominal aortic aneurysm. Lymph nodes: Unremarkable. No enlarged lymph nodes. Urinary bladder: Unremarkable as visualized. Reproductive: Unremarkable as visualized. Bones/joints: Unremarkable. No acute fracture. Soft tissues: Unremarkable. IMPRESSION: 1. Normal appendix. Series 4, image 58 -65. 2. 16 mm low-attenuation area in the medial left kidney. Thirty-two Hounsfield units. It was present on the prior study.. Recommend MR without and with contrast or CT without and with contrast. MR is preferred for masses under 1.5 cm. Dictated and Authenticated by: Mary Alcaraz MD. Ordering:TOBI Moss MD
[2023-05-03 08:59] LABS: Bilirubin Negative (Negative); Blood Negative (Negative); Clarity Clear (Clear); Glucose Negative (Negative); Ketones Negative (Negative); Leukocyte Esterase Trace (Negative); Nitrite Negative (Negative); Specific Gravity 1.015 (1.005-1.025); Urobilinogen 0.2 mg/dL (Up to 0.2)
[2023-05-03 09:07] LABS: Bacteria Negative HPF (Negative); C & S Indicated? No; Casts Negative LPF (Negative); Crystals Negative HPF (Negative); Epithelial Cells Rare HPF (Negative); Mucus Negative (Negative); RBC Negative HPF (0-2)
[2023-05-03 10:00] VITALS: BP 124/66; PULSE 63; RESP 16; TEMP 37.1; O2SAT 97
== END 2023-05-03 10:53 | disposition home or self-care (01) ==
PROVIDERS: Emergency Provider Emergency Medicine; PCP Family Medicine
DX: R11.10 Vomiting, unspecified (principal); R19.7 Diarrhea, unspecified; R10.31 Right lower quadrant pain; E78.5 Hyperlipidemia, unspecified; N18.2 Chronic kidney disease, stage 2 (mild); Z98.818 Other dental procedure status
CPT/HCPCS: 80053; 96361; 96374; 96375; 99285; 74177; 81003; 81015; 85025; 99284; J1885; J2405; J3490

== ENCOUNTER 2023-05-06 06:04 | Emergency (ER) | payer OTHER, SELFPAY ==
[2023-05-06 06:07] VITALS: BP 132/79; PULSE 97; RESP 18; TEMP 36.8; O2SAT 96
[2023-05-06 06:10] VITALS: BP 132/79; PULSE 96; RESP 18; O2SAT 96
--- NOTE | 2023-05-06 06:23 | W.ED.GENAD ---
Discharge Plan Disposition Patient Disposition: Home Condition: Good Discharge Details Clinical Impression: Back pain Primary Care Provider: Brendon Vivar ED Provider: Kimberli Martinez Home Meds and New Rx's Prescriptions: No Action methadone 10 mg/5 mL solution 100 mg PO QAM magnesium gluconate 27 mg magnesium (500 mg) tablet 27 mg PO BID Qty: 60 3RF clonazepam 1 mg tablet 1 mg PO BID Qty: 56 1RF calcitriol 0.5 mcg capsule 0.5 mcg PO BID Qty: 360 3RF Hold Instructions: Resume on 06/15/22. cyclobenzaprine 10 mg tablet 10 mg PO TID PRN (Reason: muscle spasm) Qty: 30 3RF diclofenac sodium 1 % gel 4 g topical QID Qty: 100 6RF Rx Instructions: apply to single knee, ankle, foot; for foot includes sole/toes/top of foot calcium carbonate [Tums] 200 mg calcium (500 mg) tablet,chewable 2,000 mg PO BID gabapentin 300 mg capsule 300 mg PO BID cefpodoxime 200 mg tablet 200 mg PO Q12H Hold Instructions: Changed by Provider Patient Comments: TAKE ONE TABLET BY MOUTH EVERY 12 HOURS FOR 7 DAYS pantoprazole [Protonix] [address] for susp in packet 40 mg PO DAILY Qty: 30 0RF ondansetron 4 mg tablet,disintegrating 4 mg PO Q8H Qty: 5 0RF Discharge Instructions Instructions: Back Pain (ED) Additional Instructions: Continue to take tylenol, ibuprofen, and flexeril at home as needed for pain and spasm; follow the directions on the bottle. Make sure you followup with your PCP regarding your kidney function and the renal cyst seen on your CT last visit; call them today to schedule an appointment for this week if you have not already. Return to the emergency department for new or worsening symptoms including fever, not being able to urinate, or if you have any other concerns. Referrals: Brendon Vivar DO [Primary Care Provider] - Medical Decision Making 27yo M with hx MEN1 s/p parathyroidectomy presenting for left low back pain. Three days of intermittent symptoms, absent yesterday after taking flexeril. No urinary or neurologic symptoms. Vital signs reassuring, on exam he has left lumbar/sacral parspinal muscle tenderness and spasm. No red flags for back pain and no midline tenderness; would not pursue imaging/CT.. Location of pain not suggestive of kidney etiology/pyelonephritis/stone/obstruction/UTI. Will treat with tylenol, IM toradol, flexeril, lidocaine patch. Most recent ED visit 05/03/23 note and labs reviewed; he did have a possible FLORESITA at that time thought to be 2/t dehydration. No urinary symptoms currently, reports good urine output, no further N/V/D, no clinical indication or historical symptoms to suggest progresssive kidney injury; will not repeat bloodwork today. Close followup with PCP advised. Discharged home; discharge instructions including return precautions were reviewed with patient who verbalized understanding. Alll questions were answered and they are in full agreement with the plan. Medical Records Medical records reviewed: Yes I reviewed the patient's medical records. HPI General Mode of arrival: ambulatory. Date/Time Provider Initiated Documentation: 05/06/23 06:09. Limitations to Documentation: no limitations. Information obtained by: patient and old records reviewed. HPI Narrative: 27yo M with hx MEN1 s/p parathyroidectomy presenting for left low back pain. Symptoms started around three days ago, have been intermittent since then. Pain was absent most of yesterday after he took home flexeril. Has also been taking tylenol and ibuprofen with some some improvement. Does not recall any strain or injury. Recent GI illness (last week), no symptoms for past three days. No dysuria, hematuria, or decreased urine output. No numbness or weakness. No fevers, chills, or rash. He is otherwise in his usual state of health. Related Data Home Medications Medication Instructions Recorded Confirmed methadone 10 mg/5 mL oral solution 100 mg PO QAM 11/16/21 05/06/23 magnesium gluconate 27 mg 27 mg PO BID #60 tabs 11/08/22 05/06/23 magnesium (500 mg) tablet calcium carbonate 200 mg calcium 2,000 mg PO BID 02/02/23 05/06/23 (500 mg) chewable tablet (Tums) gabapentin 300 mg capsule 300 mg PO BID 02/02/23 05/06/23 pantoprazole 40 mg granules 40 mg PO DAILY #30 ea 02/13/23 05/06/23 delayed-release for susp in packet (Protonix) ondansetron 4 mg disintegrating 4 mg PO Q8H #5 tabs 03/22/23 05/06/23 tablet calcitriol 0.5 mcg capsule 0.5 mcg PO BID #360 caps 04/21/23 05/06/23 clonazepam 1 mg tablet 1 mg PO BID #56 tabs 04/21/23 05/06/23 cyclobenzaprine 10 mg tablet 10 mg PO TID PRN muscle spasm #30 04/21/23 05/06/23 tabs diclofenac sodium 1 % topical gel 4 g topical QID #100 grams 04/21/23 05/06/23 cefpodoxime 200 mg tablet 200 mg PO Q12H 04/28/23 05/06/23 Previous Rx's Medication Instructions Recorded magnesium gluconate 27 mg 27 mg PO BID #60 tabs 11/08/22 magnesium (500 mg) tablet pantoprazole 40 mg granules 40 mg PO DAILY #30 ea 02/13/23 delayed-release for susp in packet (Protonix) ondansetron 4 mg disintegrating 4 mg PO Q8H #5 tabs 03/22/23 tablet calcitriol 0.5 mcg capsule 0.5 mcg PO BID #360 caps 04/21/23 clonazepam 1 mg tablet 1 mg PO BID #56 tabs 04/21/23 cyclobenzaprine 10 mg tablet 10 mg PO TID PRN muscle spasm #30 04/21/23 tabs diclofenac sodium 1 % topical gel 4 g topical QID #100 grams 04/21/23 Allergies Allergy/AdvReac Type Severity Reaction Status Date / Time codeine Allergy Intermediate Verified 05/06/23 06:23 Penicillins Allergy Skin Rash Verified 05/06/23 06:23 amoxicillin AdvReac Intermediate Nausea Verified 05/06/23 06:23 dextromethorphan AdvReac Intermediate Other (See Unverified 05/06/23 06:23 [From NyQuil] Comment) doxylamine [From NyQuil] AdvReac Intermediate Other (See Unverified 05/06/23 06:23 Comment) pseudoephedrine [From NyQuil] AdvReac Intermediate Other (See Unverified 05/06/23 06:23 Comment) General Stated Complaint: FlankPain ADRIANA: 4 Review of Systems Narrative: see HPI PFSH All Active Problems (Updated 05/06/23 @ 06:35 by Kimberli Martinez MD) Back pain (Acute) Abdominal pain (Acute) At high risk for hypocalcemia (Acute) Facial twitching (Acute) Fracture of tooth (Acute) Chest pain (Acute) Acid reflux disease (Chronic) Anterior chest wall pain (Acute) Post-viral cough syndrome (Acute) Cholelithiases (Acute) 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 ED Cellulitis (Acute) Severe anxiety with panic (Chronic) Family history of coronary arteriosclerosis (Chronic) Father of [place] at 50, mother had [place] at 42 Elevated parathyroid hormone (Acute) Suicidal ideation (Acute) Depression (Chronic) Hypocalcemia (Chronic) Hypomagnesemia (Chronic) Depression (Chronic) Primary hyperparathyroidism (Chronic) Chronic constipation (Chronic) Multiple endocrine neoplasia type I (Chronic) Iatrogenic hypocalcemia (Acute) Abdominal pain (Acute) Common bile duct dilatation (Acute) Intrahepatic bile duct dilation (Acute) Abnormal CT scan, kidney (Acute) Sphincter of Oddi dysfunction (Chronic) Therapeutic opioid induced constipation (Acute) Pulmonary nodule 1 cm or greater in diameter (Chronic) Neck pain on left side (Acute) with shoulder, upper back pain.. torticollis, radiating into left hip/leg History of electrolyte imbalance (Acute) Complex medical condition (Chronic) Serious electrolyte imbalances, with gynecomastia, possible MEN Dx, CKD and anemia with baseline anxiety and Hx PTSD. CKD (chronic kidney disease) stage 2, GFR 60-89 ml/min (Acute) GFR 64-65, with Hx FLORESITA and GFR < 45 Gynecomastia, male (Acute) b/l, per CT (Jul 2022).. Possible 2' Methadone, Clnzpm (?). Surg eval (+)/No further action. 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 03/20/23 per pt Adopted: No Caregiver/Support person: No Foster care: No Household members: none Housing: apartment Number of Children: 0 Communication Needs: None Education Level: high school Do you need help understanding health information?: Never 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 and animals: Yes (Ally) Pets and animals: dog(s) Sexually active: No Do you think of yourself as: straight/heterosexual Current gender identity: male What is your relationship status?: How often do you talk on the phone with friends or family?: twice per week How often do you get together with friends or relatives?: never Do you belong to any clubs or organized social groups?: no Panel score (0-1 are the most socially isolated patients): 0 What type of physical activity do you participate in: walking Duration: 15-30 minutes/day Frequency: 5-6 times per week Maryam/Zoroastrianism: [employer] Special maryam needs: No Seatbelt use: always Helmet use: Yes Helmet use: always Drive 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 Head: Normocephalic, atraumatic Neck: Trachea midline, Neck supple. Cardiac: No cyanosis. Resp: No respiratory distress. Spekaing in full sentences. Abd: Soft, non-distended, nontender : No suprapubic tenderness. No CVA tenderness. Extremities: No deformities. No peripheral edema. Back: Left low lumbar & sacral paraspinal muscle spasm with reproducible tenderness. No midline tenderness. Neurologic: GCS 15. Moves all extremities freely against gravity. Steady gait. Course Vital Signs Vital signs: Vital Signs Temperature 36.8 C 05/06/23 06:07 Pulse 97 H 05/06/23 06:07 Respiratory Rate 18 05/06/23 06:07 Blood Pressure 132/79 05/06/23 06:07 Pulse Oximetry 96 05/06/23 06:07 Temperature 36.8 C 05/06/23 06:07 Pulse 96 H 05/06/23 06:10 Respiratory Rate 18 05/06/23 06:10 Respiratory Effort Normal, Non-Labored 05/06/23 06:10 Blood Pressure 132/79 05/06/23 06:10 Blood Pressure Position Sitting 05/06/23 06:07 Pulse Oximetry 96 05/06/23 06:10 Oxygen Delivery Method Room Air 05/06/23 06:10 Oxygen Flow Rate 0 05/06/23 06:07 Pain Level 4 05/06/23 06:10
[2023-05-06] MEDS: Ketorolac 15 MG/ML VIAL IM (06:31)
[2023-05-06] MEDS: Acetaminophen 500 MG TAB 1000 MG PO (06:31)
[2023-05-06] MEDS: Cyclobenzaprine 10 MG TAB 5 MG PO (06:31)
[2023-05-06] MEDS: Lidocaine 5% Patch 1 PATCH TP (06:31)
== END 2023-05-06 06:38 | disposition home or self-care (01) ==
PROVIDERS: Emergency Provider Student in an Organized Health Care Education/Training Program; PCP Family Medicine
DX: R10.9 Unspecified abdominal pain (principal); M54.50 Low back pain, unspecified; E83.51 Hypocalcemia; Z79.899 Other long term (current) drug therapy; E78.5 Hyperlipidemia, unspecified
CPT/HCPCS: 96372; 99284; J1885

== ENCOUNTER 2023-05-07 17:52 | Emergency (ER) | payer OTHER, SELFPAY ==
--- NOTE | 2023-05-07 18:00 | DI.RAD_ITS ---
Exam(s) XR FOREARM LT EXAM: XR FOREARM LT CLINICAL HISTORY: FALL. TECHNIQUE: 2D digital imaging was performed of the left forearm. Two views were obtained. AP and l ateral views were obtained. COMPARISON: No exams were available for comparison FINDINGS: BONES: No acute fracture is present. No bony destructive lesion is seen. Visualized portion of elbow and wrist joints are unremarkable. SOFT TISSUE: Normal. IMPRESSION: Unremarkable radiographs of the left forearm. DATA REPOSITORY: RADIATION DOSE DELIVERED:
--- NOTE | 2023-05-07 18:00 | DI.RAD_ITS ---
Exam(s) XR LUMBAR SPINE AP, LAT EXAM: XR LUMBAR SPINE AP, LAT CLINICAL HISTORY: FALL. TECHNIQUE: 2D digital imaging was performed of the lumbar spine. Two images were obtained. AP and lateral views were obtained. COMPARISON: None. FINDINGS: BONES: No fracture or destructive lesion. Vertebral bodies are unremarkable. No facet hypertrophy negar ntified. DISKS: Intervertebral disc spaces are maintained. ALIGNMENT: Lumbar spinal alignment is within normal limits. No spondylolysis or spondylolisthesis. SOFT TISSUE: There is stool throughout the colon which may represent constipation. IMPRESSION: 1. No acute fracture or subluxation. 2. Findings suggesting constipation. DATA REPOSITORY: RADIATION DOSE DELIVERED:
--- NOTE | 2023-05-07 18:00 | DI.RAD_ITS ---
Exam(s) XR WRIST RT COMPLETE EXAM: XR WRIST RT COMPLETE CLINICAL HISTORY: FALL. TECHNIQUE: 2D digital imaging was performed of the right wrist. Three views were obtained. PA, lat eral and oblique views were obtained. COMPARISON: CR,XR XR WRIST RT COMPLETE from 01/26/2023 FINDINGS: BONES: No acute fracture is present. No bony destructive lesion is seen. There is an old stable scaph oid fracture. There is sclerosis of the proximal pole again seen. JOINTS: The carpal bones are normally aligned. Degenerative changes are seen at the lateral radioscap hoid joint. SOFT TISSUE: Normal. IMPRESSION: 1. No acute fracture or dislocation. 2. Old scaphoid fracture. DATA REPOSITORY: RADIATION DOSE DELIVERED:
[2023-05-07 18:01] VITALS: BP 135/95; PULSE 100; RESP 14; TEMP 36.6; O2SAT 97
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
== END 2023-05-07 19:03 | disposition home or self-care (01) ==
PROVIDERS: Emergency Provider Emergency Medicine; PCP Family Medicine
DX: M25.531 Pain in right wrist (principal); Z87.81 Personal history of (healed) traumatic fracture; M79.632 Pain in left forearm; M54.9 Dorsalgia, unspecified; W11.XXXA Fall on and from ladder, initial encounter; E78.5 Hyperlipidemia, unspecified; Z79.899 Other long term (current) drug therapy
CPT/HCPCS: 99284; 72100; 73090; 73110; 99283

== ENCOUNTER 2023-05-11 08:16 | Emergency (ER) | payer OTHER, SELFPAY ==
[2023-05-11 08:21] VITALS: BP 144/90; PULSE 110; RESP 20; TEMP 36.3; O2SAT 98
[2023-05-11 08:39] VITALS: BP 140/92; PULSE 105; RESP 20; TEMP 36.8; O2SAT 98
--- NOTE | 2023-05-11 08:46 | W.ED.GENAD ---
Discharge Plan Disposition Patient Disposition: Home Discharge Details Clinical Impression: Pharyngitis, History of electrolyte imbalance, Complex medical condition, Hypercalcemia Primary Care Provider: Brendon Vivar ED Provider: Crow Gama Home Meds and New Rx's Prescriptions: Continued methadone 10 mg/5 mL solution 100 mg PO QAM magnesium gluconate 27 mg magnesium (500 mg) tablet 27 mg PO BID Qty: 60 3RF clonazepam 1 mg tablet 1 mg PO BID Qty: 56 1RF calcitriol 0.5 mcg capsule 0.5 mcg PO BID Qty: 360 3RF Hold Instructions: Resume on 06/15/22. cyclobenzaprine 10 mg tablet 10 mg PO TID PRN (Reason: muscle spasm) Qty: 30 3RF diclofenac sodium 1 % gel 4 g topical QID Qty: 100 6RF Rx Instructions: apply to single knee, ankle, foot; for foot includes sole/toes/top of foot gabapentin 300 mg capsule 300 mg PO BID cefpodoxime 200 mg tablet 200 mg PO Q12H Hold Instructions: Changed by Provider Patient Comments: TAKE ONE TABLET BY MOUTH EVERY 12 HOURS FOR 7 DAYS pantoprazole [Protonix] [address] for susp in packet 40 mg PO DAILY Qty: 30 0RF ondansetron 4 mg tablet,disintegrating 4 mg PO Q8H Qty: 5 0RF Held calcium carbonate [Tums] 200 mg calcium (500 mg) tablet,chewable 2,000 mg PO BID Hold Instructions: Resume on 05/12/23. Please hold your nightly dose tonight and your a.m. dose tomorrow morning. Discharge Instructions Instructions: Pharyngitis (ED) Additional Instructions: As discussed I believe that your main symptom of bloody sputum is due to pharyngeal irritation. Please stay well-hydrated, use cough drops, and monitor symptoms. With check of labs today there were some signs of dehydration along with your calcium elevated. Please hold your calcium dosing tonight along with tomorrow morning. You may resume your normal calcium medications starting tomorrow night. If you have any new or significant worsening of symptoms return the emergency department otherwise follow-up with your primary care provider for recheck of your calcium level and blood in your mucus. Referrals: Brendon Vivar DO [Primary Care Provider] - 3 days Discharge Data Discharge Date/Time-TO BE ENTERED AT DEPARTURE: 05/11/23 11:42 Medical Decision Making Patient presenting to the emergency department for chief complaint of dry irritated throat with some blood in the mucus over the past 4 days. Patient denies all other symptoms, denies shortness of breath, chest pain or other respiratory symptoms symptoms, nasal congestion abnormal bleeding bruising abdominal pain or GERD that is changed from the past. Patient did state that initially he thought the blood was coming from dental procedure he had done recently but was seen by dentist 2 days ago and informed that dental extraction was healing well with no signs of complications or bleeding. Past medical history for patient is PTSD, parathyroidectomy with complicated labs and healing, anxiety, depression, hypocalcemia. Patient is well familiar to myself as I have seen him multiple times in the emergency department and patient does suffer from significant health anxiety. Physical exam is unremarkable beyond noted tachycardia which is normal for patient. Reviewed patient's previous labs have shown no thrombocytopenia, chronic but stable anemia, typical negative D-dimers, no significant liver dysfunction that would be concerning for coagulopathy. Discussed with patient high suspicion of pharyngeal irritation due to constant clearing of throat that could have caused small amount of bleeding, patient showed me pictures that showed no miguelina red blood of significant concern but more bloody mucus. Again I do feel this is more from pharyngeal irritation. Discussed with patient just monitoring of symptoms, use of cough drops, minimize clearing of throat and staying well-hydrated versus performing some blood work to reassure patient given his significant health anxiety. Patient did state that there is high suspicion he could need multiple reassessments without some evaluation which I feel is reasonable given history of multiple ER visits for health anxiety type complaints. CBC CMP and D-dimer were ordered. CBC reviewed and shows chronic but stable anemia, negative D-dimer, patient does have significant abnormalities on his CMP mostly which are not atypical for patient's past visits with elevated AST ALT, low bilirubin, patient does have critical value though of elevated calcium at 12.4 and continued decreased renal function. We will plan on giving patient IV fluids and having him hold his calcium tonight and tomorrow morning along with recommended recheck with primary care provider later this week. Again patient is otherwise asymptomatic so I do feel that outpatient disposition is appropriate. After discussion of diagnosis and plan of care patient has no further needs, questions, or concerns and states clear understanding to return to the emergency department for any worsening symptoms. This documentation was generated using Dragon dictation system, please disregard any oddities of phrase or misspellings. Lab Data Lab results reviewed: Yes I reviewed the patient's lab results. HPI General Mode of arrival: ambulatory. Date/Time Provider Initiated Documentation: 05/11/23 08:17. Limitations to Documentation: no limitations. Information obtained by: patient and RN notes reviewed. History of Present Illness 27 year old M presents to the emergency department with the chief complaint of Dry throat with blood in mucus, Patient started experiencing this day(s) (4) and it has been constant. No relieving factors improve symptom(s), No exacerbating factors reported . Patient notes no other symptoms.. Patient did receive the following treatments prior to arrival, none Related Data Home Medications Medication Instructions Recorded Confirmed methadone 10 mg/5 mL oral solution 100 mg PO QAM 11/16/21 05/06/23 magnesium gluconate 27 mg 27 mg PO BID #60 tabs 11/08/22 05/06/23 magnesium (500 mg) tablet calcium carbonate 200 mg calcium 2,000 mg PO BID 02/02/23 05/06/23 (500 mg) chewable tablet (Tums) gabapentin 300 mg capsule 300 mg PO BID 02/02/23 05/06/23 pantoprazole 40 mg granules 40 mg PO DAILY #30 ea 02/13/23 05/06/23 delayed-release for susp in packet (Protonix) ondansetron 4 mg disintegrating 4 mg PO Q8H #5 tabs 03/22/23 05/06/23 tablet calcitriol 0.5 mcg capsule 0.5 mcg PO BID #360 caps 04/21/23 05/06/23 clonazepam 1 mg tablet 1 mg PO BID #56 tabs 04/21/23 05/06/23 cyclobenzaprine 10 mg tablet 10 mg PO TID PRN muscle spasm #30 04/21/23 05/06/23 tabs diclofenac sodium 1 % topical gel 4 g topical QID #100 grams 04/21/23 05/06/23 cefpodoxime 200 mg tablet 200 mg PO Q12H 04/28/23 05/06/23 Previous Rx's Medication Instructions Recorded magnesium gluconate 27 mg 27 mg PO BID #60 tabs 11/08/22 magnesium (500 mg) tablet pantoprazole 40 mg granules 40 mg PO DAILY #30 ea 08/31/23 delayed-release for susp in packet (Protonix) ondansetron 4 mg disintegrating 4 mg PO Q8H #5 tabs 03/22/23 tablet calcitriol 0.5 mcg capsule 0.5 mcg PO BID #360 caps 04/21/23 clonazepam 1 mg tablet 1 mg PO BID #56 tabs 04/21/23 cyclobenzaprine 10 mg tablet 10 mg PO TID PRN muscle spasm #30 04/21/23 tabs diclofenac sodium 1 % topical gel 4 g topical QID #100 grams 04/21/23 Allergies Allergy/AdvReac Type Severity Reaction Status Date / Time codeine Allergy Intermediate Verified 05/10/23 09:55 Penicillins Allergy Skin Rash Verified 05/10/23 09:55 amoxicillin AdvReac Intermediate Nausea Verified 05/10/23 09:55 dextromethorphan AdvReac Intermediate Other (See Unverified 05/10/23 09:55 [From NyQuil] Comment) doxylamine [From NyQuil] AdvReac Intermediate Other (See Unverified 05/10/23 09:55 Comment) pseudoephedrine [From NyQuil] AdvReac Intermediate Other (See Unverified 05/10/23 09:55 Comment) General Stated Complaint: Sorethroat ADRIANA: 4 Review of Systems Constitutional Constitutional: Denies chills, Denies fever(s), Denies headache(s) and Denies malaise ENT Ears, Nose, Mouth, and Throat: Reports as per HPI, Denies headache(s), Denies nasal congestion, Denies neck mass, Denies neck pain, Denies post nasal drip, Denies sinus pain, Reports sore throat (Dry throat), Denies throat swelling and Denies tongue swelling Cardiovascular Cardiovascular: Denies dyspnea Respiratory Respiratory: Denies cough, Reports hemoptysis (Male with throat clearing) and Denies dyspnea Musculoskeletal Musculoskeletal: Denies neck pain Neurologic Neurologic: Denies headache(s) Allergic/Immunologic Allergic/Immunologic: Denies throat swelling and Denies tongue swelling PFSH All Active Problems (Updated 05/11/23 @ 11:32 by Crow Gama NP) Hypercalcemia (Acute) Pharyngitis (Acute) Fall (Acute) Contusion (Acute) Back pain (Acute) Abdominal pain (Acute) At high risk for hypocalcemia (Acute) Facial twitching (Acute) Fracture of tooth (Acute) Chest pain (Acute) Acid reflux disease (Chronic) Cholelithiases (Acute) 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 (Acute) Inflammatory arthritis (Acute) Costochondritis (Acute 12/13/22) [facility] Cellulitis (Acute) Severe anxiety with panic (Chronic) Family history of coronary arteriosclerosis (Chronic) Father of LA at 50, mother had LA at 42 Elevated parathyroid hormone (Acute) Suicidal ideation (Acute) Depression (Chronic) Hypocalcemia (Chronic) Hypomagnesemia (Chronic) Depression (Chronic) Primary hyperparathyroidism (Chronic) Chronic constipation (Chronic) Multiple endocrine neoplasia type I (Chronic) Iatrogenic hypocalcemia (Acute) Abdominal pain (Acute) Common bile duct dilatation (Acute) Intrahepatic bile duct dilation (Acute) Abnormal CT scan, kidney (Acute) Sphincter of Oddi dysfunction (Chronic) Therapeutic opioid induced constipation (Acute) Pulmonary nodule 1 cm or greater in diameter (Chronic) Neck pain on left side (Acute) with shoulder, upper back pain.. torticollis, radiating into left hip/leg History of electrolyte imbalance (Acute) Complex medical condition (Chronic) Serious electrolyte imbalances, with gynecomastia, possible MEN Dx, CKD and anemia with baseline anxiety and Hx PTSD. CKD (chronic kidney disease) stage 2, GFR 60-89 ml/min (Acute) GFR 64-65, with Hx FLORESITA and GFR < 45 Gynecomastia, male (Acute) b/l, per CT (Jul 2022).. Possible 2' Methadone, Clnzpm (?). Surg eval (+)/No further action. Left arm numbness (Acute) Medical History Hypocalcemia Anxiety Depression Hyperlipidemia Family history of multiple endocrine neoplasia, type 1 PTSD (post-traumatic stress disorder) Surgical History H/O parathyroidectomy Family History Mother Anxiety Asthma Depression Sister Anxiety Depression Father Cancer lung & stomach Depression Diabetes Hypertension MEN 1 (multiple endocrine neoplasia) Social History Smoking/Tobacco Use Status: Never Smoking risk assessment performed?: Yes Alcohol Intake: never Drug use: Rarely Substance use type: does not use and former substance user Details: Relapse w/ snorting 'small amount' of heroin 03/20/23 per pt Adopted: No Caregiver/Support person: No Foster care: No Household members: none Housing: apartment Number of Children: 0 Communication Needs: None Education Level: high school Do you need help understanding health information?: Never 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 and animals: Yes (Ally) Pets and animals: dog(s) Sexually active: No Do you think of yourself as: straight/heterosexual Current gender identity: male What is your relationship status?: How often do you talk on the phone with friends or family?: twice per week How often do you get together with friends or relatives?: never Do you belong to any clubs or organized social groups?: no Panel score (0-1 are the most socially isolated patients): 0 What type of physical activity do you participate in: walking Duration: 15-30 minutes/day Frequency: 5-6 times per week Maryam/Mandaeism: Denominational Special maryam needs: No Seatbelt use: always Helmet use: Yes Helmet use: always Drive 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 Exam Const General: cooperative, comfortable, no acute distress and not ill appearing Orientation: alert, awake and oriented x3 HENMT Head: normal to inspection and normocephalic Ears: hearing grossly normal bilaterally, external ears normal, TM's normal bilaterally and mastoids normal General nose exam: external nose normal and nares normal Face and sinus: normal facial exam Mouth: oral mucosae normal, lip normal, tongue normal, no audible dysphonia, no drooling and no trismus Teeth and gingiva: gingiva normal Throat: posterior oropharynx normal, tonsils normal, uvula midline and no peritonsillar masses Neck Neck: normal visual inspection, full ROM, no lymphadenopathy and no meningeal signs Resp Effort & Inspection: normal respiratory effort, able to speak in complete sentences and no stridor Auscultation: clear to auscultation bilaterally Cardio Rate: tachycardic Rhythm: regular rhythm Heart Sounds: S1 normal and S2 normal Skin General skin exam: no rashes or lesions noted Course Vital Signs Vital signs: Vital Signs Temperature 36.3 C L 05/11/23 08:21 Pulse 110 H 05/11/23 08:21 Respiratory Rate 20 05/11/23 08:21 Blood Pressure 144/90 H 05/11/23 08:21 Pulse Oximetry 98 05/11/23 08:21 Temperature 36.8 C 05/11/23 08:39 Temperature Source Oral 05/11/23 08:39 Pulse 105 H 05/11/23 08:39 Respiratory Rate 20 05/11/23 08:39 Respiratory Effort Normal, Non-Labored 05/11/23 08:39 Blood Pressure 140/92 H 05/11/23 08:39 Blood Pressure Position Sitting 05/11/23 08:39 Pulse Oximetry 98 05/11/23 08:39 Oxygen Delivery Method Room Air 05/11/23 08:39 Oxygen Flow Rate 0 05/11/23 08:21 Pain Level 2 05/11/23 08:39
[2023-05-11 09:11] LABS: Abs Immature Grans 0.01 10^3/uL (0.0-0.06); Absolute Basophil Count 0.05 10^3/uL (0.0-0.2); Absolute Eosinophil Count 0.23 10^3/uL (0.0-0.7); Absolute Monocyte Count 0.93 10^3/uL (0.1-0.8); Absolute Neutrophil Count 3.61 10^3/uL (1.2-6.7); Basophils % 0.8; Eosinophils % 3.5; HCT 35.5 % (40.0-50.0); HGB 11.9 g/dL (13.5-17.5); Immature Grans % 0.2; MCH 30.6 pg (27.0-33.0); MCHC 33.5 % (32.0-36.0); MCV 91 fL (80-95); Monocytes % 14.2; Neutrophils % 55.3; Platelet Count 250 10^3/uL (130-400); RBC 3.89 10^6/uL (4.36-5.78); RDW 12.3 % (11.8-14.1); RDW-SD 40.6 fL; WBC 6.53 10^3/uL (4.4-10.8)
[2023-05-11 09:27] LABS: ALT 75 U/L (16-63); AST 51 U/L (15-37); Albumin 3.2 g/dL (3.4-5.0); Alkaline Phosphatase 106 U/L (46-116); Anion Gap -1.5 mmol/L (3-11); BUN 23 mg/dL (7-18); Bilirubin, Total 0.1 mg/dL (0.2-1.0); CO2 35.5 mmol/L (21.0-32.0); CREATININE 2.1 mg/dL (0.70-1.30); Chloride 101 mmol/L (98-107); Estimated GFR 42.89 (mL/min/1.73m2); Glucose 108 mg/dL (74-106); Potassium 3.8 mmol/L (3.5-5.1); Sodium 135 mmol/L (136-145); Total Protein 7.6 g/dL (6.4-8.2)
[2023-05-11 09:43] LABS: Calcium 12.4 mg/dL (8.5-10.1)
[2023-05-11 10:32] LABS: D-Dimer 266 ng/mlFEU (<500)
[2023-05-11] MEDS: Normal Saline 1,000 ML 1000 ML IV (10:51)
--- NOTE | 2023-05-11 11:41 | NUR.NOTE ---
Referral faxed to PCP for recheck hypercalcemia, in 2 to 3 days. Nursing Note:
== END 2023-05-11 11:42 | disposition home or self-care (01) ==
PROVIDERS: Emergency Provider Nurse Practitioner Family; PCP Family Medicine
DX: J02.9 Acute pharyngitis, unspecified (principal); E83.52 Hypercalcemia; Z86.39 Personal history of other endocrine, nutritional and metabolic disease
CPT/HCPCS: 36415; 80053; 96360; 99284; 85025; 85379; 99283

== ENCOUNTER 2023-05-14 12:18 | Emergency (ER) | payer OTHER, SELFPAY ==
[2023-05-14 12:22] VITALS: BP 125/93; PULSE 102; RESP 14; TEMP 36.4; O2SAT 99
--- OUTSIDE RECORDS SUMMARY | 2023-05-14 12:33 | XMS_ITS | Continuity of Care Document ---
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 Role Phone JARRELL HOUSER DO Primary Care Physician Encounter [id number] [phone] Date(s): 09/07/22 - 09/07/[address] [id number]- Encounter Diagnosis Non-cardiac chest pain(Discharge Diagnosis) - 09/07/22 GERD (gastroesophageal reflux disease)(Discharge Diagnosis) - 09/07/22 Discharge Disposition: Home or Self Care Attending Physician: Bryan Sheldon DO Admitting Physician: Bryan Sheldon DO Allergies, Adverse Reactions, Alerts Substance Reaction Severity Status codeine Unknown Active amoxicillin Vomiting symptom Moderate Active Functional Status 09/07/22 Other exposure to Infectious Disease Non e Medications calcitriol 0.25 mcg oral capsule 0.5, Oral, BID, TAKE ONE CAPSULE BY MOUTH EVERY DAY Start Date: 06/22/22 Status: Ordered doxycycline hyclate 100 mg oral capsule 100 mg = 1 cap, Oral, BID, # 20 cap, 0 Refill(s), Pharmacy: [id number], 178, cm, 06/22/22 16:30:00 EST, Height/Length Dosing, 99.79, kg, 06/22/22 16:30:00 EST, Weight Dosing Start Date: 06/22/22 Stop Date: 07/02/22 Status: Ordered gabapentin 800, Oral, TID, 0 Refill(s) Start Date: 03/31/22 Status: Ordered levothyroxine 25 mcg (0.025 mg) oral capsule 25 mcg = 1 cap, Oral, Daily, # 30 cap, 0 Refill(s) Start Date: 06/22/22 Status: Ordered methadone 5 mg oral tablet 110 mg =, Oral, Daily, PRN as needed for pain, 0 Refill(s) Start Date: 06/22/22 Status: Ordered Tums 500 mg oral tablet, chewable 800 mg =, Chewed, BID, PRN as needed for dyspepsia, # 60 tab, 0 Refill(s) Start Date: 06/22/22 Status: Ordered Tums Antacid Naturals 0 Refill(s) Start Date: 03/31/22 Status: Ordered Problem List No Known Problems Vital Signs Most recent to oldest [Reference Range]: 1 2 Temperature Temporal Artery [36-38 Deg C ] 36.5 Deg C (09/07/22 9:35 AM) Peripheral Pulse Rate [60-100 bpm] 78 bp m (09/07/22 10:29 AM) 82 bpm (09/07/22 9:35 AM) Respiratory Rate [12-24 br/min] 18 br/mi n (09/07/22 10:29 AM) 18 br/min (09/07/22 9:35 AM) Blood Pressure [90-140/60-90 mmHg] 129/7 4mmHg (09/07/22 10:29 AM) 140/74mmHg (09/07/22 9:35 AM) Weight Dosing 100.00 kg (09/07/22 9:43 AM) Weight Estimated 100.00 kg (09/07/22 9:35 AM) Height/Length Dosing 178.000 cm (09/07/22 9:43 AM) Height/Length Estimated 178.000 cm (09/07/22 9:35 AM) Social History Social History Type Response Tobacco Never tobacco user T obacco Use:. Sex Hospital Discharge Instructions Patient Education 09/07/2022 09:15:46 Gastroesophageal Reflux Disease, Adult Gastroesophageal Reflux Disease, Adult Gastroesophageal reflux (IGOR) happens when acid from the stomach flows up into the tube that connects the mouth and the stomach (esophagus). Normally, food travels down the esophagus and stays in thestomach to be digested. However, when a person has IGOR, food and stomach acid sometimes move back up into the esophagus. If this becomes a more serious problem, the person may be diagnosed with a disease called gastroesophageal reflux disease (GERD). GERD occurs when the reflux: ??? Happens often. ??? Causes frequent or severe symptoms. ??? Causes problems such as damage to the esophagus. When stomach acid comes in contact with the esophagus, the acid may cause inflammation in the esophagus. Over time, GERD may create small holes (ulcers) in the lining of the esophagus. What are the causes? This condition is caused by a problem with the muscle between the esophagus and the stomach (lower esophageal sphincter, or LES). Normally, the LES muscle closes after food passes through the esophagus to the stomach. When the LES is weakened or abnormal, it does not close properly, and that allowsfood and stomach acid to go back up into the esophagus. The LES can be weakened by certain dietary substances, medicines, and medical conditions, including: ??? Tobacco use. ??? . ??? Having a hiatal hernia. ??? Alcohol use. ??? Certain foods and beverages, such as coffee, chocolate, onions, and peppermint. What increases the risk? You are more likely to develop this condition if you: ??? Have an increased body weight. ??? Have a connective tissue disorder. ??? Take NSAIDs, such as ibuprofen. What are the signs or symptoms? Symptoms of this condition include: ??? Heartburn. ??? Difficult or painful swallowing and the feeling of having a lump in the throat. ??? A bitter taste in the mouth. ??? Bad breath and having a large amount of saliva. ??? Having an upset or bloated stomach and belching. ??? Chest pain. Different conditions can cause chest pain. Make sure you see your health care provider if you experience chest pain. ??? Shortness of breath or wheezing. ??? Ongoing (chronic) cough or a nighttime cough. ??? Wearing away of tooth enamel. ??? Weight loss. How is this diagnosed? This condition may be diagnosed based on a medical history and a physical exam. To determine if youhave mild or severe GERD, your health care provider may also monitor how you respond to treatment. You may also have tests, including: ??? A test to examine your stomach and esophagus with a small camera (endoscopy). ??? A test that measures the acidity level in your esophagus. ??? A test that measures how much pressure is on your esophagus. ??? A barium swallow or modified barium swallow test to show the shape, size, and functioning of your esophagus. How is this treated? Treatment for this condition may vary depending on how severe your symptoms are. Your health care provider may recommend: ??? Changes to your diet. ??? Medicine. ??? Surgery. The goal of treatment is to help relieve your symptoms and to prevent complications. Follow these instructions at home: Eating and drinking ??? Follow a diet as recommended by your health care provider. This may involve avoiding foods and drinks such as: ??? Coffee and tea, with or without caffeine. ??? Drinks that contain alcohol. ??? Energy drinks and sports drinks. ??? Carbonated drinks or sodas. ??? Chocolate and cocoa. ??? Peppermint and mint flavorings. ??? Garlic and onions. ??? Horseradish. ??? Spicy and acidic foods, including peppers, chili powder, fuentes powder, vinegar, hot sauces, andbarbecue sauce. ??? [place] fruit juices and citrus fruits, such as oranges, zeyad, and limes. ??? Tomato-based foods, such as red sauce, chili, salsa, and pizza with red sauce. ??? Fried and fatty foods, such as donuts, afghan fries, potato chips, and high- fat dressings. ??? High-fat meats, such as hot dogs and fatty cuts of red and white meats, such as rib eye steak, sausage, ham, and munoz. ??? High-fat dairy items, such as whole milk, butter, and cream cheese. ??? Eat small, frequent meals instead of large meals. ??? Avoid drinking large amounts of liquid with your meals. ??? Avoid eating meals during the 2???3 hours before bedtime. ??? Avoid lying down right after you eat. ??? Do not exercise right after you eat. Lifestyle ??? Do not use any products that contain nicotine or tobacco. These products include cigarettes, chewing tobacco, and vaping devices, such as e-cigarettes. If you need help quitting, ask your health care provider. ??? Try to reduce your stress by using methods such as yoga or meditation. If you need help reducing stress, ask your health care provider. ??? If you are overweight, reduce your weight to an amount that is healthy for you. Ask your healthcare provider for guidance about a safe weight loss goal. General instructions ??? Pay attention to any changes in your symptoms. ??? Take cjzd-syu-ysqrphj and prescription medicines only as told by your health care provider. Do not take aspirin, ibuprofen, or other NSAIDs unless your health care provider told you to take thesemedicines. ??? Wear loose-fitting clothing. Do not wear anything tight around your waist that causes pressure on your abdomen. ??? Raise (elevate) the head of your bed about 6 inches (15 cm). You can use a wedge to do this. ??? Avoid bending over if this makes your symptoms worse. ??? Keep all follow-up visits. This is important. Contact a health care provider if: ??? You have: ??? New symptoms. ??? Unexplained weight loss. ??? Difficulty swallowing or it hurts to swallow. ??? Wheezing or a persistent cough. ??? A hoarse voice. ??? Your symptoms do not improve with treatment. Get help right away if: ??? You have sudden pain in your arms, neck, jaw, teeth, or back. ??? You suddenly feel sweaty, dizzy, or light-headed. ??? You have chest pain or shortness of breath. ??? You vomit and the vomit is green, yellow, or black, or it looks like blood or coffee grounds. ??? You faint. ??? You have stool that is red, bloody, or black. ??? You cannot swallow, drink, or eat. These symptoms may represent a serious problem that is an emergency. Do not wait to see if the symptoms will go away. Get medical help right away. Call your local emergency services (911 in the [place] Do not drive yourself to the hospital. Summary ??? Gastroesophageal reflux happens when acid from the stomach flows up into the esophagus. GERD trice disease in which the reflux happens often, causes frequent or severe symptoms, or causes problemssuch as damage to the esophagus. ??? Treatment for this condition may vary depending on how severe your symptoms are. Your health care provider may recommend diet and lifestyle changes, medicine, or surgery. ??? Contact a health care provider if you have new or worsening symptoms. ??? Take jgci-leq-ecxxzom and prescription medicines only as told by your health care provider. Do not take aspirin, ibuprofen, or other NSAIDs unless your health care provider told you to do so. ??? Keep all follow-up visits as told by your health care provider. This is important. This information is not intended to replace advice given to you by your health care provider. Make sure you discuss any questions you have with your health care provider. Document Revised: 12/11/2020 Document Reviewed: 12/11/2020 [employer] Patient Education ?? 2021 [employer] Follow Up Care 09/07/2022 09:34:58 With:JARRELL HOUSER DO Address: [address] [address]- When:1 week Comments:Your screening EKG was unremarkable and reassuring. ??I believe your symptoms are related to your stomach.?? It is likely you have developed either irritation/inflammation or peptic ulcer disease within your stomach and should be treated as such.?? I am going to??start you on??omeprazole??(OTC medication - PURPLE PILL) to be taken??1 tablet twice daily??for??at least 30 days. ??This is a medication that you may have to be on for??some time in order to facilitate healing. ??Please discuss that with your primary care physician.?? Also please maintain a boring diet in the form of a??BRAT diet for the next 2-days then??advance carefully as tolerated??as discussed with ED nursing upon disposition.?? Return to the emergency department with any new or worsening symptoms or for any concerns you may have. Physician Emergency department Note * Bryan Sheldon DO: PERFORM Event Display: ED Note Physician Authored Date: [id number] DESIRE SANCHEZ :1995 Age:26 years Sex:Male Visit Date:09/07/2022 Primary Care Physician: JARRELL HOUSER DO Basic Information Time Seen: Bryan Sheldon DO / 09/07/2022 10:07 Chief Complaint pt reports chest pressure, upper back, and SOB for 3 days History Of Present Illness: This is a 26-year-old male no significant PMH presents to the emergency department with??epigastric??pressure, central back discomfort and a sensation of shortness of breath for the past??3 days. ??He states his discomfort worsens with food intake. Review of Systems: CONSTITUTIONAL: _No weight loss, fever, chills, weakness or fatigue SKIN: _No rash, no itching, no jaundice EYES: _No visual loss, blurred vision, double vision or scleral icterus ENT: _No ear pain; patent nares without bleeding or congestion; no sore throat CARDIOLOGY: _No chest pain, No edema, No palpitations PULMONOLOGY: _No pleuritic chest pain, No ggvpczhfu-yr-bzwgdu, No cough, No hemoptysis ABDOMEN:_no nausea, no vomiting, (+)ve epigastric discomfort, (+)ve post- prandial bloating sensation,??no melena, no hematochezia :_no dysuria, no urinary frequency, no urinary urgency NEURO:_No focal neurological deficit, no headache, no dizziness ?? REST OF REVIEW OF SYSTEMS IS NEGATIVE PERTAINS TO CHIEF COMPLAINT Physical Exam Vitals & Measurements T:??36.5?C ??(Temporal Artery)?? HR:??82??(Peripheral)?? RR:??18?? BP:??140/74?? SpO2:??99%?? HT:??178.000??cm?? WT:??100.00??kg??(Estimated)?? Pain Score:??6?? O2 Therapy:??Room air?? GENERAL: This is a very pleasant healthy appearing male in no cardiopulmonary distress. SKIN: Warm and dry. No rash. HEENT: Normocephalic, atraumatic. ??PERRLA, EOMI, no conjunctival injection, no scleral icterus. ??TMs not examined. ??Nares are without congestion or rhinorrhea. ??No posterior pharyngeal erythema or tonsillar exudate. ??Dentition grossly intact. ??Mucous membranes are moist. NECK: Supple. No midline tenderness. No JVD. No thyromegaly. Dynamic ROM against resistance intact. HEART: Regular rate and rhythm. ??S1 and S2. No murmur. LUNGS: Clear to auscultation bilaterally. ??No respiratory distress. ABDOMEN: Non-distended, epigastric-tenderness without guarding, rebound or rigidity. ??Cedillo sign negative. ??No McBurney's point tenderness. ??Psoas negative. ??Obturator negative. ??Rovsing sign negative. BACK: No midline TLS spine tenderness. ??No CVAT. ??No SI tenderness. EXTREMITIES: No unilateral leg swelling or posterior calf tenderness. No edema. NEUROLOGIC: GCS 15. CN III-XII intact without acute focal neurological deficit. Medical Decision Making: Epigastric/lower chest discomfort.?? Heart score 1, Wells score 0, meets PERC criteria.?? Suspect GI pathology. ??Improvement with GI cocktail and??pantoprazole.?? Screening EKG completely unremarkable.?? We will start the patient on omeprazole OTC 20 mg twice daily for the next 30 days. ??Recommended brat diet??and then AAT. ??Encouraged follow-up with PCP. ??All questions were answered. ??Patient expressed understanding of disposition and was grateful for discharge home. Procedure No Qualifying Data Assessment/Plan 1.??Non-cardiac chest pain??R07.89 Ordered: pantoprazole, 40 mg = 1 tab, Oral, Tab-DR, Once, First Dose: 09/07/22 10:18:00 EDT, Stop Date: 09/07/22 10:18:00 EDT, Physician Stop ?? 2.??GERD (gastroesophageal reflux disease)??K21.9 Ordered: pantoprazole, 40 mg = 1 tab, Oral, Tab-DR, Once, First Dose: 09/07/22 10:18:00 EDT, Stop Date: 09/07/22 10:18:00 EDT, Physician Stop ?? Orders: Al hydroxide/Mg hydroxide/simethicone, 30 mL, Oral, Susp, Once, First Dose: 09/07/22 11:00:00 EDT, Stop Date: 09/07/22 11:00:00 EDT, Physician Stop Lidocaine Viscous, 15 mL, Oral, Soln, Once, First Dose: 09/07/22 11:00:00 EDT, Stop Date: 09/07/22 11:00:00 EDT, Physician Stop Discharge Patient, 09/07/22 10:18:00 EDT Patient Education Gastroesophageal Reflux Disease, Adult Follow Up With When Contact Information CORRINA AVILA, JARRELL MEYER Within 1 week [facility] [address] [place] [phone]- Additional Instructions: Your screening EKG was unremarkable and reassuring. ??I believe your symptoms are related to your stomach.?? It is likely you have developed either irritation/inflammation orpeptic ulcer disease within your stomach and should be treated as such.?? I am going to??start you o n??omeprazole??(OTC medication - PURPLE PILL) to be taken??1 tablet twice daily??for??at least 30 days. ??This is a medication that you may have to be on for??some time in order to facilitate healing. ??Please discuss that with your primary care physician.?? Also please maintain a boring diet in the form of a??BRAT diet for the next 2-days then??advance carefully as tolerated??as discussed with ED nursing upon disposition.?? Return to the emergency department with any new or worsening symptomsor for any concerns you may have. Medication Reconciliation Unchanged calcitriol (calcitriol 0.25 mcg oral capsule)0.5 Oral (given by mouth) 2 times a day. TAKE ONE CAPSULE BY MOUTH EVERY DAY. ?? calcium carbonate (Tums 500 mg oral tablet, chewable)800 Milligrams Chewed 2 times a day as needed as needed for dyspepsia. ?? calcium carbonate (Tums Antacid Naturals) ?? doxycycline (doxycycline hyclate 100 mg oral capsule)1 Capsules Oral (given by mouth) 2 times a dayfor 10 Days. Refills: 0. ?? [id number] Oral (given by mouth) 3 times a day. ?? levothyroxine (levothyroxine 25 mcg (0.025 mg) oral capsule)1 Capsules Oral (given by mouth) every day. ?? methadone (methadone 5 mg oral tablet)110 Milligrams Oral (given by mouth) every day as needed as needed for pain. Problem List/Past Medical History Ongoing No chronic problems Historical No qualifying data Allergies amoxicillin??(Vomiting symptom) codeine Social History Alcohol Past Electronic Cigarette/Vaping Electronic Cigarette Use: Never. Substance Use Past Tobacco Never tobacco user Tobacco Use:. Diagnostic Results ECG EKG 9:39 AM: EKG demonstrates normal sinus rhythm at 80 bpm; normal axis; normal intervals; no objective evidence of acute ischemia or infarction. Electronically Signed on 09/07/22 10:25 AM Bryan Sheldon DO Emergency department Discharge instructions * Bryan Sheldon DO: PERFORM Event Display: ED Discharge Information Authored Date: [id number] DESIRE SANCHEZ :1995 Age:26 years Sex:Male Visit Date:09/07/2022 Primary Care Physician: JARRELL HOUSER DO Discharge Instructions We would like to thank you for allowing us to assist you with your healthcare needs. The following includes patient education materials and information regarding your injury/illness. Diagnosis from Today's Visit Non-cardiac chest pain GERD (gastroesophageal reflux disease) Discharge Vitals Temperature??(Temporal Artery) 97.7 ??F (36.5 ??C) Heart Rate??(Peripheral) 82 Respiratory Rate?? 18 Blood Pressure?? 140/74?? Height?? 70.08 in (178.000 cm) Weight??(Estimated) 220.50 lb (100.00 kg) Allergies amoxicillin??(Vomiting symptom) codeine What to Do Next You Need to Schedule the Following Appointments Follow Up with??JARRELL HOUSER DO When:??Within 1 week Why: Your screening EKG was unremarkable and reassuring. ??I believe your symptoms are related to your stomach.?? It is likely you have developed either irritation/inflammation or peptic ulcer disease within your stomach and should be treated as such.?? I am going to??start you on??omeprazole??(OTCmedication - PURPLE PILL) to be taken??1 tablet twice daily??for??at least 30 days. ??This is a medication that you may have to be on for??some time in order to facilitate healing. ??Please discuss that with your primary care physician.?? Also please maintain a boring diet in the form of a??BRAT diet for the next 2-days then??advance carefully as tolerated??as discussed with ED nursing upon dispo sition.?? Return to the emergency department with any new or worsening symptoms or for any concernsyou may have. Where: [address] [id number]- You were treated today on an emergency basis; it may be tucker to contact your primary care provider to notify them of your visit today. You may have been referred to your regular doctor or a specialist, please follow up as instructed. If your condition worsens or you can't get in to see the doctor, contact the Emergency Department. Medications What How Much When Why Instructions Next Dose Unchanged calcitriol (calcitriol 0.25 mcg oral capsule) 0.5 Oral (given by mouth) 2 times a day TAKE ONE CAPSULE BY MOUTH EVERY DAY ?? Unchanged calcium carbonate (Tums 500 mg oral tablet, chewable) 800 Milligrams Chewed 2 times a day as needed for as needed for dyspepsia Unchanged calcium carbonate (Tums Antacid Naturals) Unchanged doxycycline (doxycycline hyclate 100 mg oral capsule) 1 Capsules Oral (given by mouth) 2 times a day CAP (community acquired pneumonia) Duration: 10 Days Unchanged gabapentin 800 Oral (given by mouth) 3 times a day Unchanged levothyroxine (levothyroxine 25 mcg (0.025 mg) oral capsule) 1 Capsules Oral (given by mouth) Every day Unchanged methadone (methadone 5 mg oral tablet) 110 Milligrams Oral (given by mouth) Every day as needed for as needed for pain Education Materials Gastroesophageal Reflux Disease, Adult Gastroesophageal reflux (IGOR) happens when acid from the stomach flows up into the tube that connects the mouth and the stomach (esophagus). Normally, food travels down the esophagus and stays in thestomach to be digested. However, when a person has IGOR, food and stomach acid sometimes move back up into the esophagus. If this becomes a more serious problem, the person may be diagnosed with a disease called gastroesophageal reflux disease (GERD). GERD occurs when the reflux: ? Happens often. ? Causes frequent or severe symptoms. ? Causes problems such as damage to the esophagus. When stomach acid comes in contact with the esophagus, the acid may cause inflammation in the esophagus. Over time, GERD may create small holes (ulcers) in the lining of the esophagus. What are the causes? This condition is caused by a problem with the muscle between the esophagus and the stomach (lower esophageal sphincter, or LES). Normally, the LES muscle closes after food passes through the esophagus to the stomach. When the LES is weakened or abnormal, it does not close properly, and that allowsfood and stomach acid to go back up into the esophagus. The LES can be weakened by certain dietary substances, medicines, and medical conditions, including: ? Tobacco use. ? . ? Having a hiatal hernia. ? Alcohol use. ? Certain foods and beverages, such as coffee, chocolate, onions, and peppermint. What increases the risk? You are more likely to develop this condition if you: ? Have an increased body weight. ? Have a connective tissue disorder. ? Take NSAIDs, such as ibuprofen. What are the signs or symptoms? Symptoms of this condition include: ? Heartburn. ? Difficult or painful swallowing and the feeling of having a lump in the throat. ? A bitter taste in the mouth. ? Bad breath and having a large amount of saliva. ? Having an upset or bloated stomach and belching. ? Chest pain. Different conditions can cause chest pain. Make sure you see your health care provider if you experience chest pain. ? Shortness of breath or wheezing. ? Ongoing (chronic) cough or a nighttime cough. ? Wearing away of tooth enamel. ? Weight loss. How is this diagnosed? This condition may be diagnosed based on a medical history and a physical exam. To determine if youhave mild or severe GERD, your health care provider may also monitor how you respond to treatment. You may also have tests, including: ? A test to examine your stomach and esophagus with a small camera (endoscopy). ? A test that measures the acidity level in your esophagus. ? A test that measures how much pressure is on your esophagus. ? A barium swallow or modified barium swallow test to show the shape, size, and functioning of your esophagus. How is this treated? Treatment for this condition may vary depending on how severe your symptoms are. Your health care provider may recommend: ? Changes to your diet. ? Medicine. ? Surgery. The goal of treatment is to help relieve your symptoms and to prevent complications. Follow these instructions at home: Eating and drinking ? Follow a diet as recommended by your health care provider. This may involve avoiding foods and drinks such as: ? Coffee and tea, with or without caffeine. ? Drinks that contain alcohol. ? Energy drinks and sports drinks. ? Carbonated drinks or sodas. ? Chocolate and cocoa. ? Peppermint and mint flavorings. ? Garlic and onions. ? Horseradish. ? Spicy and acidic foods, including peppers, chili powder, fuentes powder, vinegar, hot sauces, and barbecue sauce. ? [place] fruit juices and citrus fruits, such as oranges, zeyad, and limes. ? Tomato-based foods, such as red sauce, chili, salsa, and pizza with red sauce. ? Fried and fatty foods, such as donuts, afghan fries, potato chips, and high-fat dressings. ? High-fat meats, such as hot dogs and fatty cuts of red and white meats, such as rib eye steak, sausage, ham, and munoz. ? High-fat dairy items, such as whole milk, butter, and cream cheese. ? Eat small, frequent meals instead of large meals. ? Avoid drinking large amounts of liquid with your meals. ? Avoid eating meals during the 2???3 hours before bedtime. ? Avoid lying down right after you eat. ? Do not exercise right after you eat. Lifestyle ? Do not use any products that contain nicotine or tobacco. These products include cigarettes, chewing tobacco, and vaping devices, such as e-cigarettes. If you need help quitting, ask your health careprovider. ? Try to reduce your stress by using methods such as yoga or meditation. If you need help reducing stress, ask your health care provider. ? If you are overweight, reduce your weight to an amount that is healthy for you. Ask your health care provider for guidance about a safe weight loss goal. General instructions ? Pay attention to any changes in your symptoms. ? Take elrp-rda-revnkly and prescription medicines only as told by your health care provider. Do not take aspirin, ibuprofen, or other NSAIDs unless your health care provider told you to take these medicines. ? Wear loose-fitting clothing. Do not wear anything tight around your waist that causes pressure on your abdomen. ? Raise (elevate) the head of your bed about 6 inches (15 cm). You can use a wedge to do this. ? Avoid bending over if this makes your symptoms worse. ? Keep all follow-up visits. This is important. Contact a health care provider if: ? You have: ? New symptoms. ? Unexplained weight loss. ? Difficulty swallowing or it hurts to swallow. ? Wheezing or a persistent cough. ? A hoarse voice. ? Your symptoms do not improve with treatment. Get help right away if: ? You have sudden pain in your arms, neck, jaw, teeth, or back. ? You suddenly feel sweaty, dizzy, or light-headed. ? You have chest pain or shortness of breath. ? You vomit and the vomit is green, yellow, or black, or it looks like blood or coffee grounds. ? You faint. ? You have stool that is red, bloody, or black. ? You cannot swallow, drink, or eat. These symptoms may represent a serious problem that is an emergency. Do not wait to see if the symptoms will go away. Get medical help right away. Call your local emergency services (911 in the [place] Do not drive yourself to the hospital. Summary ? Gastroesophageal reflux happens when acid from the stomach flows up into the esophagus. GERD is a disease in which the reflux happens often, causes frequent or severe symptoms, or causes problems such as damage to the esophagus. ? Treatment for this condition may vary depending on how severe your symptoms are. Your health care provider may recommend diet and lifestyle changes, medicine, or surgery. ? Contact a health care provider if you have new or worsening symptoms. ? Take edei-yfa-qasantk and prescription medicines only as told by your health care provider. Do not take aspirin, ibuprofen, or other NSAIDs unless your health care provider told you to do so. ? Keep all follow-up visits as told by your health care provider. This is important. This information is not intended to replace advice given to you by your health care provider. Make sure you discuss any questions you have with your health care provider. Document Revised: 12/11/2020 Document Reviewed: 12/11/2020 [employer] Patient Education ?? 2021 [employer] Patient/Pl Sql Programmer Signature Patient Name:DESIRE SANCHEZ I have received this information and my questions have been answered. 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
--- OUTSIDE RECORDS SUMMARY | 2023-05-14 12:33 | XMS_ITS | Continuity of Care Document ---
Author Name Unknown Organization [facility] Address [address] [place] [id number] Care Team Providers Care Account Solutions Analyst Name Role Phone JARRELL HOUSER DO Primary Care Physician Encounter [facility] FIN NBR [id number] Date(s): 09/08/22 - 09/08/[address] [id number]- Encounter Diagnosis Abdominal pain of unknown etiology(Discharge Diagnosis) - 09/08/22 Discharge Disposition: Home or Self Care Attending Physician: Berto Davis MD Admitting Physician: Berto Davis MD Allergies, Adverse Reactions, Alerts Substance Reaction Severity Status codeine Unknown Active amoxicillin Vomiting symptom Moderate Active Medications calcitriol 0.25 mcg oral capsule 0.5, Oral, BID Start Date: 06/22/22 Status: Ordered Carafate 1 g oral tablet 1 g = 1 tab, Oral, QID, X 7 days, # 28 tab, 0 Refill(s), 09/15/22 14:36:00 EDT, Pharmacy: [id number], 178, cm, 09/08/22 11:46:00 EDT, Height/Length Dosing, 100, kg, 09/08/22 11:46:00 EDT, Weight Dosing Start Date: 09/08/22 Stop Date: 09/15/22 Status: Ordered gabapentin 300 mg oral capsule 300 mg = 1 cap, 0 Refill(s) Start Date: 09/08/22 Status: Ordered levothyroxine 25 mcg (0.025 mg) oral capsule 25 mcg = 1 cap, Oral, Daily, # 30 cap, 0 Refill(s) Start Date: 06/22/22 Status: Ordered methadone 110 mg =, Oral, Daily, 0 Refill(s) Start Date: 09/08/22 Status: Ordered Tums 500 mg oral tablet, chewable 800 mg =, Chewed, BID, PRN as needed for dyspepsia, 0 Refill(s) Start Date: 06/22/22 Status: Ordered Problem List No Known Problems Results Laboratory List Name Date Urinalysis with Micro if Indicated and C ulture if Indicated 09/08/22 CBC w/ Diff 09/08/22 Comprehensive Metabolic Panel (CMP) 09/08 D-Dimer 09/08/22 Lipase Level 09/08/22 Magnesium Level 09/08/22 TSH w/ Rflx to Free T4 09/08/22 Troponin-I 09/08/22 Automated Diff 09/08/22 Most recent to oldest [Reference Range]: 1 WBC [4.8-10.8 K/mcL] 8.6 K/mcL (09/08/22 12:01 PM) RBC [4.20-6.10 Million/mcL] 3.52 Million /mcL *LOW* (09/08/22 12:01 PM) Neutro Auto [42.2-75.2 %] 55.0 % (09/08/22 12:01 PM) Lymph Auto [20.5-51.1 %] 32.1 % (09/08/22 12:01 PM) Mifflin Auto [1.7-9.3 %] 9.6 % *HI* (09/08/22 12:01 PM) Basophil Auto [0.0-0.8 %] 0.5 % (09/08/22 12:01 PM) BUN [8-26 mg/dL] 18 mg/dL (09/08/22 12:01 PM) UA Color [Yellow] Yellow (09/08/22 1:47 PM) Glucose Level [74-106 mg/dL] 99 mg/dL (09/08/22 12:01 PM) Potassium Level [3.5-5.1 mmol/L] 3.5 mmo l/L (09/08/22 12:01 PM) Baso Absolute [0.0-0.2 K/mcL] 0.0 K/mcL (09/08/22 12:01 PM) MCV [80.0-94.0 fL] 92.6 fL (09/08/22 12:01 PM) UA Urobilinogen [0.2] 0.2 (09/08/22 1:47 PM) UA Bili [Negative] Negative (09/08/22 1:47 PM) UA Ketones [Negative] Negative (09/08/22 1:47 PM) AST [15-41 IntlUnit/L] 21 IntlUnit/L (09/08/22 12:01 PM) ALT [17-63 IntlUnit/L] 21 IntlUnit/L (09/08/22 12: PM) MCHC [32.0-36.0 g/dL] 33.7 g/dL (09/08/22 12: PM) Osmolality [275-295 mOsm/kg] 274 mOsm/kg *LOW* (09/08/22 PM) Troponin-I [<=0.05 ng/mL] <0.01 ng/mL (09/08/22 PM) Sodium Level [134-143 mmol/L] 136 mmol/L (09/08/22: PM) UA Leuk Est [Negative] Negative (09/08/22 1:47 PM) Lymph Absolute [1.2-3.4 K/mcL] 2.8 K/mcL (09/08/22 12: PM) UA Nitrite [Negative] Negative (09/08/22 1:47 PM) UA Glucose [Negative] Negative (09/08/22 1:47 PM) Hct [42.0-52.0 %] 32.6 % *LOW* (09/08/22 PM) Lipase Level [18-51 unit/L] 25 unit/L (09/08/22 12: PM) Calcium Level [8.9-10.3 mg/dL] 7.9 mg/dL *LOW* (09/08/22: PM) Mifflin Absolute [0.1-0.6 K/mcL] 0.8 K/mcL *HI* (09/08/22 12 PM) Albumin Level [3.5-5.0 g/dL] 3.5 g/dL (09/08/22 12: PM) Protein Total [6.5-8.1 g/dL] 7.1 g/dL (09/08/22 12: PM) UA Protein [Negative] Negative (09/08/22 1:47 PM) MCH [27.0-31.0 pg] 31.3 pg *HI* (09/08/22 12:01 PM) Magnesium Level [1.8-2.5 mg/dL] 1.9 mg/d L (09/08/22 12:01 PM) Neutro Absolute [1.4-6.5 K/mcL] 4.7 K/mc L (09/08/22 12:01 PM) Bilirubin Total [0.2-1.2 mg/dL] 0.4 mg/d L (09/08/22 12:01 PM) Hgb [14.0-18.0 g/dL] 11.0 g/dL *LOW* (09/08/22 12: PM) Alk Phos [38-130 IntlUnit/L] 82 IntlUnit /L (09/08/22 12:01 PM) UA Blood [Negative] Negative (09/08/22 1:47 PM) MPV [7.4-10.4 fL] 10.8 fL *HI* (09/08/22 12:01 PM) UA Spec Grav 1.010 *NA* (09/08/22 1:47 PM) Platelets [130-400 K/mcL] 247 K/mcL (09/08/22 12:01 PM) CO2 [22-32 mmol/L] 26 mmol/L (09/08/22 12:01 PM) Eos Absolute [0.0-0.2 K/mcL] 0.2 K/mcL (09/08/22 12:01 PM) TSH [0.45-5.33 mIntlUnit/mL] 2.16 mIntlU nit/mL (09/08/22 12:01 PM) UA pH 5.00 *NA* (09/08/22 1:47 PM) UA Appear [Clear] Clear (09/08/22 1:47 PM) Chloride Level [98-111 mmol/L] 100 mmol/ L (09/08/22 12:01 PM) RDW-CV [11.5-14.5 %] 12.2 % (09/08/22 12:01 PM) A/G Ratio 1.0 *NA* (09/08/22 12:01 PM) BUN/Creat Ratio [8.0-20.0] 13.8 (09/08/22 12:01 PM) Globulin 3.6 *NA* (09/08/22 12:01 PM) Imm Gran Absolute 0.02 *NA* (09/08/22 12:01 PM) Imm Gran Auto [0.0-0.5 %] 0.2 % (09/08/22 12:01 PM) NRBC Auto 0 *NA* (09/08/22 12:01 PM) NRBC Absolute 0 *NA* (09/08/22 12:01 PM) Urine Srce Clean Catch (09/08/22 1:47 PM) Creatinine Level [0.61-1.24 mg/dL] 1.30 mg/dL *HI* (09/08/22 12:01 PM) Anion Gap [3.0-12.0] 10.0 (09/08/22 12:01 PM) D Dimer, (Quant.) [<=500 ng/mL] 406 ng/m L (09/08/22 12:01 PM) Eos, Auto [0.00-3.00 %] 2.60 % (09/08/22 12:01 PM) eGFR CKD-EPI [>=60 mL/min/1.73 m2] 77 mL /min/1.73 m2 (09/08/22 12:01 PM) Radiology Reports * Exam Date Time Procedure Performing Provider Status 09/08/22 1:[address] Abdomen and Pelvis w/ Contrast Bobbi Funez; Auth (Verified) Notes: (CT Abdomen and Pelvis w/ Contrast) Reason For Exam: abd pain CT Abdomen and Pelvis w/ Contrast PROCEDURE INFORMATION: Exam: CT Abdomen And Pelvis With Contrast Exam date and time: 09/08/2022 12:51 PM Age: 26 years old Clinical indication: Abdominal pain; Localized; Upper; Additional info: Abd pain for a couple days, not getting better, denies n/v/d TECHNIQUE: Imaging protocol: Computed tomography of the abdomen and pelvis with contrast. Radiation optimization: All CT scans at this facility use at least one of these dose optimization techniques: automated exposure control; mA and/or kV adjustment per patient size (includes targeted exams where dose is matched to clinical indication); or iterative reconstruction. Contrast material: [id number]; Contrast volume: 100 ml; Contrast route: INTRAVENOUS (IV); REPORTING DATA: Count of CT and Cardiac NM exams in prior 12 months: This patient has received 0 known CTs and 0 known cardiac nuclear medicine studies in the 12 months prior to the current study. COMPARISON: CR XR CHEST SINGLE VIEW 08/26/2022 7:03 AM FINDINGS: Liver: The liver is homogeneous and is not enlarged. Mild intrahepatic biliary ductal dilatation. Gallbladder and bile ducts: No calcified gallstones, gallbladder wall thickening, or pericholecystic inflammation. There is dilatation of the extrahepatic duct measuring up to 13 mm on the coronal reconstructions (5:41). No calcified common bile duct calculi. Pancreas: No pancreatic mass. No peripancreatic inflammation. No pancreatic ductal dilation. Spleen: Calcified granuloma in a nonenlarged spleen. Adrenal glands: No adrenal mass. Kidneys and ureters: No renal or ureteral calculus. No hydronephrosis or hydroureter. Ill-defined focus of diminished enhancement in the medial superior pole the left kidney (3:43) and lateral lower pole of the left kidney (3:57) . No perirenal fluid or fat stranding. Stomach and bowel: No bowel obstruction or diverticulitis. Appendix: The appendix is not clearly visualized, but no inflammatory process in the expected location of the appendix. Intraperitoneal space: No ascites or pneumoperitoneum. Vasculature: The abdominal aorta and iliofemoral arteries are normal.The mesenteric arteries are patent. The mesenteric, portal, and hepatic veins are patent. Lymph nodes: No pathologically enlarged lymph nodes. Urinary bladder: No urinary bladder calculus or wall thickening. Reproductive: Unremarkable as visualized. Bones/joints: No acute osseous abnormality. Soft tissues: Tiny umbilical hernia containing fat. IMPRESSION: 1. Mild biliary ductal dilatation. Correlate with the liver function tests. 2. Foci of decreased parenchymal enhancement in the left kidney. Correlate with the urinalysis. US RENAL may be helpful, as clinically directed. THIS DOCUMENT HAS BEEN ELECTRONICALLY SIGNED BY GURU JOHNSON MD on 09/08/2022 01:28 PM Final Signed by: Guru Johnson MD Signed (Electronic Signature): 09/08/2022 1:28 pm Vital Signs Most recent to oldest [Reference Range]: 1 2 3 Temperature Temporal Artery [36-38 Deg C] 36.6 Deg C (09/08/22 11:34 AM) Peripheral Pulse Rate [60-100 bpm] 74 bpm (09/08/22 2:00 PM) 73 bpm (09/08/22 1:30 PM) 73 bpm (09/08/22 1:00 PM) Heart Rate Monitored [60-100 bpm] 75 bpm (09/08/22 2:00 PM) 73 bpm (09/08/22 1:30 PM) 73 bpm (09/08/22 1:00 PM) Respiratory Rate [12-24 br/min] 14 br/min (09/08/22 2:00 PM) 12 br/min (09/08/22 1:30 PM) 11 br/min *LOW* (09/08/22 1:00 PM) Blood Pressure [90-140/60-90 mmHg] 106/84mmHg (09/08/22 2:00 PM) 112/75mmHg (09/08/22 1:00 PM) 139/86mmHg (09/08/22 11:34 AM) Mean Arterial Pressure Cuff 90 mmHg (09/08/22 2:00 PM) 86 mmHg (09/08/22 1:00 PM) Weight 100.00 kg (09/08/22 11:34 AM) Weight Dosing 100.00 kg (09/08/22 11:46 AM) Height 178.000 cm (09/08/22 11:34 AM) Height/Length Dosing 178.000 cm (09/08/22 11:46 AM) Body Mass Index 32.000 kg/m2 (09/08/22 11:34 AM) Social History Social History Type Response Tobacco Never tobacco user T obacco Use:. Sex Hospital Discharge Instructions Patient Education 09/08/2022 13:37:15 Abdominal Pain, Adult Abdominal Pain, Adult Pain in the abdomen (abdominal pain) can be caused by many things. Often, abdominal pain is not serious and it gets better with no treatment or by being treated at home. However, sometimes abdominal pain is serious. Your health care provider will ask questions about your medical history and do a physical exam to try to determine the cause of your abdominal pain. Follow these instructions at home: Medicines ??? Take zxis-yqy-ammiica and prescription medicines only as told by your health care provider. ??? Do not take a laxative unless told by your health care provider. General instructions ??? Watch your condition for any changes. ??? Drink enough fluid to keep your urine pale yellow. ??? Keep all follow-up visits as told by your health care provider. This is important. Contact a health care provider if: ??? Your abdominal pain changes or gets worse. ??? You are not hungry or you lose weight without trying. ??? You are constipated or have diarrhea for more than 2???3 days. ??? You have pain when you urinate or have a bowel movement. ??? Your abdominal pain wakes you up at night. ??? Your pain gets worse with meals, after eating, or with certain foods. ??? You are vomiting and cannot keep anything down. ??? You have a fever. ??? You have blood in your urine. Get help right away if: ??? Your pain does not go away as soon as your health care provider told you to expect. ??? You cannot stop vomiting. ??? Your pain is only in areas of the abdomen, such as the right side or the left lower portion of the abdomen. Pain on the right side could be caused by appendicitis. ??? You have bloody or black stools, or stools that look like tar. ??? You have severe pain, cramping, or bloating in your abdomen. ??? You have signs of dehydration, such as: ??? Dark urine, very little urine, or no urine. ??? Cracked lips. ??? Dry mouth. ??? Sunken eyes. ??? Sleepiness. ??? Weakness. ??? You have trouble breathing or chest pain. Summary ??? Often, abdominal pain is not serious and it gets better with no treatment or by being treated at home. However, sometimes abdominal pain is serious. ??? Watch your condition for any changes. ??? Take uxqb-smt-rtpqjzq and prescription medicines only as told by your health care provider. ??? Contact a health care provider if your abdominal pain changes or gets worse. ??? Get help right away if you have severe pain, cramping, or bloating in your abdomen. This information is not intended to replace advice given to you by your health care provider. Make sure you discuss any questions you have with your health care provider. Document Revised: 07/21/2020 Document Reviewed: 10/11/2019 [employer] Patient Education ?? 2021 [employer]. 09/08/2022 13:37:13 Colic Colic Colic refers to long periods of crying for no apparent reason in an otherwise normal, healthy baby.It is often defined as crying for 3 or more hours a day, at least 3 days a week, for at least 3 weeks. Colic usually begins when the child is 2???3 weeks old and can go on until the child is 3???4 months old. What are the causes? The exact cause of this condition is not known. What are the signs or symptoms? Episodes of colic (colic spells) usually occur late in the afternoon or in the evening, and they range in severity from fussiness to screaming. During colic spells, babies may: ??? Have a higher-pitched, louder cry than normal. The cry sounds more like a pain cry than a normal baby's cry. ??? Grimace, draw their legs up to their abdomen, or stiffen their muscles. ??? Be more difficult or impossible to comfort. Between colic spells, babies have normal periods of crying and can be comforted in the normal way (such as by feeding, rocking, or changing diapers). How is this diagnosed? This condition may be diagnosed with a physical exam to rule out other conditions that could cause episodes of crying. How is this treated? This condition may be treated by: ??? Trying different soothing techniques to see what works for your baby. ??? Changing the diet of a mother. ??? Changing your baby's formula. ??? Using different feeding techniques to prevent your baby from swallowing too much air. Follow these instructions at home: Feeding your baby ??? If you are , do not drink caffeine. Beverages that contain caffeine include coffee, tea, and certain sodas. ??? If you formula feed or bottle feed, burp your baby after every ounce of formula or breast milk he or she drinks. If you are , burp your baby every 5 minutes. ??? Hold your baby upright during feeding. Continue to hold your baby upright for at least 30 minutes after a feeding. ??? Allow at least 20 minutes for feeding, and always hold your baby while feeding. ??? Do not feed your baby every time he or she cries. Wait at least 2 hours between feedings. ??? If bottle feeding, change the bottle to a fast-flow nipple. Comforting your baby ??? When your baby fusses or cries, check to see if your baby: ??? Is in an uncomfortable position. ??? Is too hot or cold. ??? Has a soiled diaper. ??? Needs to be cuddled. ??? Do a soothing, rhythmic activity with your baby, such as rocking, placing him or her in a swing, or taking him or her for a ride in a stroller or car. ??? Do not put your baby in a car seat on top of any vibrating surface (such as a washing machine that is running). ??? If your baby is still crying after more than 20 minutes of gentle motion, let the baby cry himself or herself to sleep. ??? If your baby is young, swaddle him or her as directed by your baby's health care provider. ??? Play recordings of heartbeats or monotonous sounds, such as those from an electric fan, washingmachine, or vacuum lamp cleaner. ??? Consider giving your baby a pacifier. Managing stress If you feel stressed: ??? Ask for help. ??? Ask someone you trust to watch your baby so that you can get out of the house, even for just 1 or 2 hours. Taking care of a colicky baby is a two-person job. ??? Put your baby in the crib where he or she will be safe, and leave the room to take a break. General instructions ??? Do not let your baby sleep for more than 3 hours at a time during the day. This will ensure that he or she will sleep better at night. ??? Always place your baby on his or her back to sleep. Do not place your baby face down or on his or her stomach to sleep. ??? Do not shake or hit your baby. ??? Talk to your baby's health care provider before giving your baby kggg-tgn-iizwpun colic drops. ??? Follow instructions from your health care provider about eating and drinking restrictions, or changes to your diet. ??? Do not give your baby herbal tea. ??? Keep all follow-up visits. This is important. Contact a health care provider if: ??? Your baby seems to be sick or in pain. ??? Your baby has been crying constantly for more than 3 hours. Get help right away if: ??? You are afraid that your stress will cause you to hurt the baby. ??? Your baby has been shaken, by you or by someone else. ??? Your baby who is younger than 3 months has a temperature of 100.4??F (38??C) or higher. ??? Your baby who is older than 3 months has a fever and symptoms that suddenly get worse or do notgo away. These symptoms may represent a serious problem that is an emergency. Do not wait to see if the symptoms will go away. Get medical help right away. Call your local emergency services (911 in the [place] Summary ??? Colic refers to long periods of crying for no apparent reason in an otherwise normal, healthy baby. ??? Colic spells usually occur late in the afternoon or in the evening. ??? If you formula feed or bottle feed, burp your baby after every ounce of formula or breast milk he or she drinks. If you are , burp your baby every 5 minutes. ??? Do a soothing, rhythmic activity with your baby, such as rocking him or her, placing him or herin a swing, or taking him or her for a ride in a stroller or car. ??? Taking care of a colicky baby is a two-person job. It may help to ask someone you trust to watch your baby so that you can get out of the house, even for just 1 or 2 hours. This information is not intended to replace advice given to you by your health care provider. Make sure you discuss any questions you have with your health care provider. Document Revised: 04/16/2021 Document Reviewed: 04/16/2021 [employer] Patient Education ?? 2021 [employer] Follow Up Care 09/08/2022 11:34:22 With:Bryan Mccauley MD Address: [address] [place] [id number]- When:1 month With:Marlo Urbina MD Address: [facility] [address] [place] [id number]- When:1 to 2 weeks Physician Emergency department Note * ANDREW Sequeira: PERFORM Event Display: ED Note Physician Authored Date: DESIRE SANCHEZ :1995 Age:26 years Sex:Male Visit Date:09/08/2022 Primary Care Physician: JARRELL HOUSER DO Basic Information Time Seen: ANDREW Sequeira / 09/08/2022 11:37 Chief Complaint pt was seen yesterday for similar symptoms and started on omeprazole, pt reports was initially feeling better then at 1am abd pain/epigastric pain restarted History Of Present Illness: Patient is a 26-year-old male who presents the emergency department having been here in the emergency department yesterday morning and evaluated by both Dr. Díaz and??Dr. Sheldon. ??He ultimately was discharged after full cardiac work-up??with negative chest x-ray and negative laboratory evaluation. ??He was discharged with omeprazole which she??has not been using??and presents once again for evaluation. ??He did leave here??have some pain??return and did go to [facility]??where he was evaluated??as well.?? Laboratory evaluation revealed hypomagnesemia as well as low calcium and??both of these were placed on site. ??He did have a bedside ultrasound which revealed concerning for??gallstones but no evidence of cholecystitis. He presents here once again with abdominal discomfort in the epigastric region traveling up into his chest??and??generalized??anxiety. Review of Systems: [facility] Physical Exam Vitals & Measurements T:??36.6?C ??(Temporal Artery)?? HR:??74??(Peripheral)?? HR:??75??(Monitored)?? RR:??14?? BP:??106/84?? SpO2:??97%?? HT:??178.000??cm?? WT:??100.00??kg?? BMI:??32.000?? Pain Score:??6?? O2 Therapy:??Room air?? Patient alert oriented age-appropriate well-nourished nontoxic Normocephalic atraumatic Neck supple nontender EOM intact, PERRLA, sclera nonicteric Clear to auscultation bilaterally Regular rate and rhythm no murmurs Abdominal exam reveals normal bowel sounds, negative rebound tenderness, negative psoas sign, mild right upper quadrant tenderness,??mild??Cedillo sign Normal gait and station, normal strength all extremities Neuro exam intact without focal deficit Appropriate mood and affect Medical Decision Making: Laboratory evaluation is as below.?? 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 I have given him Protonix here as well as Toradol and he does have good relief of his discomfort. Patient is given a liter of fluids his CT scan of the abdomen and pelvis is negative??laboratory evaluation does not reveal??any acute findings. ??For these reasons he is discharged as below. Procedure No Qualifying Data Assessment/Plan 1.??Abdominal pain of unknown etiology??R10.9 I have discussed with the patient that this is most likely a GI referral however he can follow-up with general surgery to discuss HIDA scan to rule out??biliary colic. ??He will do so first thing this week.?? He will??contact his primary care to discuss any further interventions as needed I will give him Carafate to your line??and if he finds that this is helpful he can contact his primary care for further prescriptions.?? Patient understands and agrees with all aspects of today's visit??or stands discharge planning. Orders: Carafate 1 g oral tablet, 1 g = 1 tab, Oral, QID, X 7 days, # 28 tab, 0 Refill(s), 09/15/22 14:36:00 EDT, Pharmacy: [id number], 178, cm, 09/08/22 11:46:00 EDT, Height/Length Dosing, 100, kg, 09/08/22 11:46:00 EDT, Weight Dosing Patient Education Abdominal Pain, Adult Colic Follow Up With When Contact Information Bryan Mccauley MD Within 1 month [address] [place] [address]- Additional Instructions: Marlo Urbina MD Within 1 to 2 weeks [facility] [address] [place], [place] [id number]- Additional Instructions: Medication Reconciliation New Prescription sucralfate (Carafate 1 g oral tablet)1 tab Oral (given by mouth) 4 times a day for 7 Days. Refills:0. ?? Unchanged calcitriol (calcitriol 0.25 mcg oral capsule)0.5 Oral (given by mouth) 2 times a day. ?? calcium carbonate (Tums 500 mg oral tablet, chewable)800 Milligrams Chewed 2 times a day as needed as needed for dyspepsia. ?? gabapentin (gabapentin 300 mg oral capsule)1 Capsules. ?? levothyroxine (levothyroxine 25 mcg (0.025 mg) oral capsule)1 Capsules Oral (given by mouth) every day. ?? [id number] Milligrams Oral (given by mouth) every day. Problem List/Past Medical History Ongoing No chronic problems Historical No qualifying data Medication Administration Given Sodium Chloride 0.9%, 1000 mL, IV Bolus !-Zofran, 4 mg, IV Push Protonix, 40 mg, IV Push Toradol, 15 mg, IV Push Allergies amoxicillin??(Vomiting symptom) codeine Social History Alcohol Past Electronic Cigarette/Vaping Electronic Cigarette Use: Never. Substance Use Past Tobacco Never tobacco user Tobacco Use:. Diagnostic Results CT Abdomen and Pelvis w/ Contrast 09/08/2022 13:[address] Abdomen and Pelvis w/ Contrast ?? 09/08/22 12:51:55 PROCEDURE INFORMATION: Exam: CT Abdomen And Pelvis With Contrast Exam date and time: 09/08/2022 12:51 PM Age: 26 years old Clinical indication: Abdominal pain; Localized; Upper; Additional info: Abd pain for a couple days, not getting better, denies n/v/d ?? TECHNIQUE: Imaging protocol: Computed tomography of the abdomen and pelvis with contrast. Radiation optimization: All CT scans at this facility use at least one of these dose optimization techniques: automated exposure control; mA and/or kV adjustment per patient size (includes targeted exams where dose is matched to clinical indication); or iterative reconstruction. Contrast material: [id number]; Contrast volume: 100 ml; Contrast route: INTRAVENOUS (IV); ?? REPORTING DATA: Count of CT and Cardiac NM exams in prior 12 months: This patient has received 0 known CTs and 0 known cardiac nuclear medicine studies in the 12 months prior to the current study. ?? COMPARISON: CR XR CHEST SINGLE VIEW 08/26/2022 7:03 AM ?? FINDINGS: Liver: The liver is homogeneous and is not enlarged. Mild intrahepatic biliary ductal dilatation. Gallbladder and bile ducts: No calcified gallstones, gallbladder wall thickening, or pericholecystic inflammation. There is dilatation of the extrahepatic duct measuring up to 13 mm on the coronal reconstructions (5:41). No calcified common bile duct calculi. Pancreas: No pancreatic mass. No peripancreatic inflammation. No pancreatic ductal dilation. Spleen: Calcified granuloma in a nonenlarged spleen. Adrenal glands: No adrenal mass. Kidneys and ureters: No renal or ureteral calculus. No hydronephrosis or hydroureter. Ill-defined focus of diminished enhancement in the medial superior pole the left kidney (3:43) and lateral lower pole of the left kidney (3:57) . No perirenal fluid or fat stranding. Stomach and bowel: No bowel obstruction or diverticulitis. Appendix: The appendix is not clearly visualized, but no inflammatory process in the expected location of the appendix. ?? Intraperitoneal space: No ascites or pneumoperitoneum. Vasculature: The abdominal aorta and iliofemoral arteries are normal.The mesenteric arteries are patent. The mesenteric, portal, and hepatic veins are patent. Lymph nodes: No pathologically enlarged lymph nodes. Urinary bladder: No urinary bladder calculus or wall thickening. Reproductive: Unremarkable as visualized. Bones/joints: No acute osseous abnormality. Soft tissues: Tiny umbilical hernia containing fat. ?? IMPRESSION: 1. Mild biliary ductal dilatation. Correlate with the liver function tests. 2. Foci of decreased parenchymal enhancement in the left kidney. Correlate with the urinalysis. US RENAL may be helpful, as clinically directed. ? THIS DOCUMENT HAS BEEN ELECTRONICALLY SIGNED BY GURU JOHNSON MD on 09/08/2022 01:28 PM ?? Signed By: Guru Johnson MD Lab Results CBC and Differential?? LATEST RESULTS?? HISTORICAL RESULTS?? WBC?? 09/08/22 12:01?? 8.6?? 08/26/22?? 9.2?? RBC?? 09/08/22 12:01?? 3.52 ??Low?? 08/26/22?? 3.87 ??Low?? Hgb?? 09/08/22 12:01?? 11.0 ??Low?? 08/26/22?? 12.2 ??Low?? Hct?? 09/08/22 12:01?? 32.6 ??Low?? 08/26/22?? 35.6 ??Low?? MCV?? 09/08/22 12:01?? 92.6?? 08/26/22?? 92.0?? MCH?? 09/08/22 12:01?? 31.3 ??High?? 08/26/22?? 31.5 ??High?? MCHC?? 09/08/22 12:01?? 33.7?? 08/26/22?? 34.3?? RDW-CV?? 09/08/22 12:01?? 12.2?? 08/26/22?? 12.0?? Platelets?? 09/08/22 12:01?? 247?? 08/26/22?? 277?? MPV?? 09/08/22 12:01?? 10.8 ??High?? 08/26/22?? 10.8 ??High?? Neutro Auto?? 09/08/22 12:01?? 55.0?? 08/26/22?? 65.8?? Lymph Auto?? 09/08/22 12:01?? 32.1?? 08/26/22?? 22.3?? Mifflin Auto?? 09/08/22 12:01?? 9.6 ??High?? 08/26/22?? 9.9 ??High?? Eos, Auto?? 09/08/22 12:01?? 2.60?? 08/26/22?? 1.10?? Basophil Auto?? 09/08/22 12:01?? 0.5?? 08/26/22?? 0.5?? Imm Gran Auto?? 09/08/22 12:01?? 0.2?? 08/26/22?? 0.4?? NRBC Auto?? 09/08/22 12:01?? 0?? 03/31/22?? 0?? Neutro Absolute?? 03/26/23 12:01?? 4.7?? 08/26/22?? 6.0?? Lymph Absolute?? 09/08/22 12:01?? 2.8?? 08/26/22?? 2.0?? M[place] Absolute?? 09/08/22 12:01?? 0.8 ??High?? 08/26/22?? 0.9 ??High?? Eos Absolute?? 09/08/22 12:01?? 0.2?? 08/26/22?? 0.1?? Baso Absolute?? 09/08/22 12:01?? 0.0?? 08/26/22?? 0.0?? Imm Gran Absolute?? 09/08/22 12:01?? 0.02?? 08/26/22?? 0.04?? NRBC Absolute?? 09/08/22 12:01?? 0?? 03/31/22?? 0? Coagulation?? LATEST RESULTS?? HISTORICAL RESULTS?? D Dimer, (Quant.)?? 09/08/22 12:01?? 406?? 08/26/22?? 316? Routine Chemistry?? LATEST RESULTS?? HISTORICAL RESULTS?? Sodium Level?? 09/08/22 12:01?? 136?? 08/26/22?? 134?? Potassium Level?? 09/08/22 12:01?? 3.5?? 08/26/22?? 3.3 ??Low?? Chloride Level?? 09/08/22 12:01?? 100?? 08/26/22?? 97 ??Low?? CO2?? 09/08/22 12:01?? 26?? 08/26/22?? 29?? Alk Phos?? 09/08/22 12:01?? 82?? 08/26/22?? 93?? AST?? 09/08/22 12:01?? 21?? 08/26/22?? 24?? ALT?? 09/08/22 12:01?? 21?? 08/26/22?? 18?? BUN?? 09/08/22 12:01?? 18?? 08/26/22?? 12?? Glucose Level?? 09/08/22 12:01?? 99?? 08/26/22?? 119 ??High?? Creatinine Level?? 09/08/22 12:01?? 1.30 ??High?? 08/26/22?? 1.44 ??High?? BUN/Creat Ratio?? 09/08/22 12:01?? 13.8?? 08/26/22?? 8.3?? Calcium Level?? 09/08/22 12:01?? 7.9 ??Low?? 08/26/22?? 8.5 ??Low?? Protein Total?? 09/08/22 12:01?? 7.1?? 08/26/22?? 8.0?? Albumin Level?? 09/08/22 12:01?? 3.5?? 08/26/22?? 3.9?? Globulin?? 09/08/22 12:01?? 3.6?? 08/26/22?? 4.1?? A/G Ratio?? 09/08/22 12:01?? 1.0?? 08/26/22?? 1.0?? Bilirubin Total?? 09/08/22 12:01?? 0.4?? 08/26/22?? 0.5?? Anion Gap?? 09/08/22 12:01?? 10.0?? 08/26/22?? 8.0?? Lipase Level?? 09/08/22 12:01?? 25?? 08/26/22?? 27?? Magnesium Level?? 09/08/22 12:01?? 1.9?? 03/31/22?? 1.6 ??Low?? Osmolality?? 09/08/22 12:01?? 274 ??Low?? 08/26/22?? 269 ??Low?? eGFR CKD-EPI?? 09/08/22 12:01?? 77?? 08/26/22?? 68? Cardiac Isoenzymes?? LATEST RESULTS?? HISTORICAL RESULTS?? Troponin-I?? 09/08/22 12:01?? <0.01?? 08/26/22?? 0.01? Thyroid Studies?? LATEST RESULTS?? TSH?? 09/08/22 12:01?? 2.16? UA Macroscopic?? LATEST RESULTS?? HISTORICAL RESULTS?? Urine Srce?? 09/08/22 13:47?? Clean Catch?? 06/22/22?? Clean Catch?? UA Color?? 09/08/22 13:47?? Yellow?? 06/22/22?? LIGHT YELL?? UA Appear?? 09/08/22 13:47?? Clear?? 06/22/22?? Cloudy Abnormal?? UA Glucose?? 09/08/22 13:47?? Negative?? 06/22/22?? Negative?? UA Bili?? 09/08/22 13:47?? Negative?? 06/22/22?? Negative?? UA Ketones?? 09/08/22 13:47?? Negative?? 06/22/22?? Negative?? UA Spec Grav?? 09/08/22 13:47?? 1.010?? 06/22/22?? 1.020?? UA Blood?? 09/08/22 13:47?? Negative?? 06/22/22?? Negative?? UA pH?? 09/08/22 13:47?? 5.00?? 06/22/22?? 8.00?? UA Protein?? 09/08/22 13:47?? Negative?? 06/22/22?? Negative?? UA Urobilinogen?? 09/08/22 13:47?? 0.2?? 06/22/22?? 0.2?? UA Nitrite?? 09/08/22 13:47?? Negative?? 06/22/22?? Negative?? UA Leuk Est?? 09/08/22 13:47?? Negative?? 06/22/22?? Negative? Electronically Signed on 09/08/22 08:12 PM [facility]REW Sequeira Emergency department Discharge instructions * ANDREW Sequeira: PERFORM Event Display: ED Discharge Information Authored Date: [id number] DESIRE SANCHEZ :1995 Age:26 years Sex:Male Visit Date:09/08/2022 Primary Care Physician: JARRELL HOUSER DO Discharge Instructions We would like to thank you for allowing us to assist you with your healthcare needs. The following includes patient education materials and information regarding your injury/illness. Diagnosis from Today's Visit Abdominal pain of unknown etiology Discharge Vitals Temperature??(Temporal Artery) 97.9 ??F (36.6 ??C) Heart Rate??(Peripheral) 74 Heart Rate??(Monitored) 75 Respiratory Rate?? 14 Blood Pressure?? 106/84?? Height?? 70.08 in (178.000 cm) Weight?? 220.50 lb (100.00 kg) BMI?? 32.000 Allergies amoxicillin??(Vomiting symptom) codeine What to Do Next Instructions from Your Care Team As discussed I believe this??very well could be either gallbladder or erosive esophagitis. ??At this time??I believe she follow-up with GI and/or??general surgery for further evaluation. ??This may include HIDA scan or??endoscopic evaluation. ??Use Carafate??as prescribed, continue your omeprazole Continue to utilize your pain management strategies as prescribed, follow-up with that provider forany interventions or??changes to your pain management strategy. You Need to Schedule the Following Appointments Follow Up with??Bryan Mccauley MD When:??Within 1 month Where: [address] [place] [id number]- Follow Up with??Marlo Urbina MD When:??Within 1 to 2 weeks Where: [facility] [address] [place] [address]- You were treated today on an emergency [...] Emergency Department. Medications What How Much When Instructions Next Dose New sucralfate (Carafate 1 g oral tablet) 1 tab Oral (given by mouth) 4 times a day Duration: 7 Days Pickup at [facility] Unchanged calcitriol (calcitriol 0.25 mcg oral capsule) 0.5 Oral (given by mouth) 2 times a day Unchanged calcium carbonate (Tums 500 mg oral tablet, chewable) 800 Milligrams Chewed 2 times a day as needed for as needed for dyspepsia Unchanged gabapentin (gabapentin 300 mg oral capsule) 1 Capsules Unchanged levothyroxine (levothyroxine 25 mcg (0.025 mg) oral capsule) 1 Capsules Oral (given by mouth) Every day Unchanged methadone 110 Milligrams Oral (given by mouth) Every day Pharmacy Information [facility]: [address] [place], [place] [id number] [phone] Education Materials Abdominal Pain, Adult Pain in the abdomen (abdominal pain) can be caused by many things. Often, abdominal pain is not serious and it gets better with no treatment or by being treated at home. However, sometimes abdominal pain is serious. Your health care provider will ask questions about your medical history and do a physical exam to try to determine the cause of your abdominal pain. Follow these instructions at home: Medicines ? Take hepq-rpu-xgnhhtn and prescription medicines only as told by your health care provider. ? Do not take a laxative unless told by your health care provider. General instructions ? Watch your condition for any changes. ? Drink enough fluid to keep your urine pale yellow. ? Keep all follow-up visits as told by your health care provider. This is important. Contact a health care provider if: ? Your abdominal pain changes or gets worse. ? You are not hungry or you lose weight without trying. ? You are constipated or have diarrhea for more than 2???3 days. ? You have pain when you urinate or have a bowel movement. ? Your abdominal pain wakes you up at night. ? Your pain gets worse with meals, after eating, or with certain foods. ? You are vomiting and cannot keep anything down. ? You have a fever. ? You have blood in your urine. Get help right away if: ? Your pain does not go away as soon as your health care provider told you to expect. ? You cannot stop vomiting. ? Your pain is only in areas of the abdomen, such as the right side or the left lower portion of the abdomen. Pain on the right side could be caused by appendicitis. ? You have bloody or black stools, or stools that look like tar. ? You have severe pain, cramping, or bloating in your abdomen. ? You have signs of dehydration, such as: ? Dark urine, very little urine, or no urine. ? Cracked lips. ? Dry mouth. ? Sunken eyes. ? Sleepiness. ? Weakness. ? You have trouble breathing or chest pain. Summary ? Often, abdominal pain is not serious and it gets better with no treatment or by being treated at home. However, sometimes abdominal pain is serious. ? Watch your condition for any changes. ? Take fcdy-afr-njkohwp and prescription medicines only as told by your health care provider. ? Contact a health care provider if your abdominal pain changes or gets worse. ? Get help right away if you have severe pain, cramping, or bloating in your abdomen. This information is not intended to replace advice given to you by your health care provider. Make sure you discuss any questions you have with your health care provider. Document Revised: 07/21/2020 Document Reviewed: 10/11/2019 [employer] Patient Education ?? 2021 [employer] Colic Colic refers to long periods of crying for no apparent reason in an otherwise normal, healthy baby.It is often defined as crying for 3 or more hours a day, at least 3 days a week, for at least 3 weeks. Colic usually begins when the child is 2???3 weeks old and can go on until the child is 3???4 months old. What are the causes? The exact cause of this condition is not known. What are the signs or symptoms? Episodes of colic (colic spells) usually occur late in the afternoon or in the evening, and they range in severity from fussiness to screaming. During colic spells, babies may: ? Have a higher-pitched, louder cry than normal. The cry sounds more like a pain cry than a normal baby's cry. ? Grimace, draw their legs up to their abdomen, or stiffen their muscles. ? Be more difficult or impossible to comfort. Between colic spells, babies have normal periods of crying and can be comforted in the normal way (such as by feeding, rocking, or changing diapers). How is this diagnosed? This condition may be diagnosed with a physical exam to rule out other conditions that could cause episodes of crying. How is this treated? This condition may be treated by: ? Trying different soothing techniques to see what works for your baby. ? Changing the diet of a mother. ? Changing your baby's formula. ? Using different feeding techniques to prevent your baby from swallowing too much air. Follow these instructions at home: Feeding your baby ? If you are , do not drink caffeine. Beverages that contain caffeine include coffee, tea, and certain sodas. ? If you formula feed or bottle feed, burp your baby after every ounce of formula or breast milk he or she drinks. If you are , burp your baby every 5 minutes. ? Hold your baby upright during feeding. Continue to hold your baby upright for at least 30 minutes after a feeding. ? Allow at least 20 minutes for feeding, and always hold your baby while feeding. ? Do not feed your baby every time he or she cries. Wait at least 2 hours between feedings. ? If bottle feeding, change the bottle to a fast-flow nipple. Comforting your baby ? When your baby fusses or cries, check to see if your baby: ? Is in an uncomfortable position. ? Is too hot or cold. ? Has a soiled diaper. ? Needs to be cuddled. ? Do a soothing, rhythmic activity with your baby, such as rocking, placing him or her in a swing, ortaking him or her for a ride in a stroller or car. ? Do not put your baby in a car seat on top of any vibrating surface (such as a washing machine that is running). ? If your baby is still crying after more than 20 minutes of gentle motion, let the baby cry himself or herself to sleep. ? If your baby is young, swaddle him or her as directed by your baby's health care provider. ? Play recordings of heartbeats or monotonous sounds, such as those from an electric fan, washing machine, or vacuum lamp cleaner. ? Consider giving your baby a pacifier. Managing stress If you feel stressed: ? Ask for help. ? Ask someone you trust to watch your baby so that you can get out of the house, even for just 1 or 2hours. Taking care of a colicky baby is a two-person job. ? Put your baby in the crib where he or she will be safe, and leave the room to take a break. General instructions ? Do not let your baby sleep for more than 3 hours at a time during the day. This will ensure that heor she will sleep better at night. ? Always place your baby on his or her back to sleep. Do not place your baby face down or on his or her stomach to sleep. ? Do not shake or hit your baby. ? Talk to your baby's health care provider before giving your baby kkue-gwk-ctaoacm colic drops. ? Follow instructions from your health care provider about eating and drinking restrictions, or changes to your diet. ? Do not give your baby herbal tea. ? Keep all follow-up visits. This is important. Contact a health care provider if: ? Your baby seems to be sick or in pain. ? Your baby has been crying constantly for more than 3 hours. Get help right away if: ? You are afraid that your stress will cause you to hurt the baby. ? Your baby has been shaken, by you or by someone else. ? Your baby who is younger than 3 months has a temperature of 100.4??F (38??C) or higher. ? Your baby who is older than 3 months has a fever and symptoms that suddenly get worse or do not go away. These symptoms may represent a serious problem that is an emergency. Do not wait to see if the symptoms will go away. Get medical help right away. Call your local emergency services (911 in the [place] Summary ? Colic refers to long periods of crying for no apparent reason in an otherwise normal, healthy baby. ? Colic spells usually occur late in the afternoon or in the evening. ? If you formula feed or bottle feed, burp your baby after every ounce of formula or breast milk he or she drinks. If you are , burp your baby every 5 minutes. ? Do a soothing, rhythmic activity with your baby, such as rocking him or her, placing him or her in a swing, or taking him or her for a ride in a stroller or car. ? Taking care of a colicky baby is a two-person job. It may help to ask someone you trust to watch your baby so that you can get out of the house, even for just 1 or 2 hours. This information is not intended to replace advice given to you by your health care provider. Make sure you discuss any questions you have with your health care provider. Document Revised: 04/16/2021 Document Reviewed: 04/16/2021 [employer] Patient Education ?? 2021 [employer] Tests Performed Radiology CT Abdomen and Pelvis w/ Contrast 09/08/2022 13:29 EDT Medications and Immunizations Administered Given Sodium Chloride 0.9%, 1000 mL, IV Bolus !-Zofran, 4 mg, IV Push Protonix, 40 mg, IV Push Toradol, 15 mg, IV Push Lab Test Name Test Result Date/Time WBC 8.6 K/mcL 09/08/2022 12:01 EDT RBC 3.52 Million/mcL 09/08/2022 12:01 EDT Hgb 11.0 g/dL 09/08/2022 12:01 EDT Hct 32.6 % 09/08/2022 12:01 EDT MCV 92.6 fL 09/08/2022 12:01 EDT MCH 31.3 pg 09/08/2022 12:01 EDT MCHC 33.7 g/dL 09/08/2022 12:01 EDT RDW-CV 12.2 % 09/08/2022 12:01 EDT Platelets 247 K/mcL 09/08/2022 12:01 EDT MPV 10.8 fL 09/08/2022 12:01 EDT Neutro Auto 55.0 % 09/08/2022 12:01 EDT Lymph Auto 32.1 % 09/08/2022 12:01 EDT Mifflin Auto 9.6 % 09/08/2022 12:01 EDT Eos, Auto 2.60 % 09/08/2022 12:01 EDT Basophil Auto 0.5 % 09/08/2022 12:01 EDT Imm Gran Auto 0.2 % 09/08/2022 12:01 EDT NRBC Auto 0 09/08/2022 12:01 EDT Neutro Absolute 4.7 K/mcL 09/08/2022 12:01 EDT Lymph Absolute 2.8 K/mcL 09/08/2022 12:01 EDT Mifflin Absolute 0.8 K/mcL 09/08/2022 12:01 EDT Eos Absolute 0.2 K/mcL 09/08/2022 12:01 EDT Baso Absolute 0.0 K/mcL 09/08/2022 12:01 EDT Imm Gran Absolute 0.02 09/08/2022 12:01 EDT NRBC Absolute 0 09/08/2022 12:01 EDT D Dimer, (Quant.) 406 ng/mL 09/08/2022 12:01 EDT Sodium Level 136 mmol/L 09/08/2022 12:01 EDT Potassium Level 3.5 mmol/L 09/08/2022 12:01 EDT Chloride Level 100 mmol/L 09/08/2022 12:01 EDT CO2 26 mmol/L 09/08/2022 12:01 EDT Alk Phos 82 IntlUnit/L 09/08/2022 12:01 EDT AST 21 IntlUnit/L 09/08/2022 12:01 EDT ALT 21 IntlUnit/L 09/08/2022 12:01 EDT BUN 18 mg/dL 09/08/2022 12:01 EDT Glucose Level 99 mg/dL 09/08/2022 12:01 EDT Creatinine Level 1.30 mg/dL 09/08/2022 12:01 EDT BUN/Creat Ratio 13.8 09/08/2022 12:01 EDT Calcium Level 7.9 mg/dL 09/08/2022 12:01 EDT Protein Total 7.1 g/dL 09/08/2022 12:01 EDT Albumin Level 3.5 g/dL 09/08/2022 12:01 EDT Globulin 3.6 09/08/2022 12:01 EDT A/G Ratio 1.0 09/08/2022 12:01 EDT Bilirubin Total 0.4 mg/dL 09/08/2022 12:01 EDT Anion Gap 10.0 09/08/2022 12:01 EDT Lipase Level 25 unit/L 09/08/2022 12:01 EDT Magnesium Level 1.9 mg/dL 09/08/2022 12:01 EDT Osmolality 274 mOsm/kg 09/08/2022 12:01 EDT eGFR CKD-EPI 77 mL/min/1.73 m2 09/08/2022 12:01 EDT Troponin-I <0.01 ng/mL 09/08/2022 12:01 EDT TSH 2.16 mIntlUnit/mL 09/08/2022 12:01 EDT Urine Srce Clean Catch 09/08/2022 13:47 EDT UA Color YELLOW. 09/08/2022 13:47 EDT UA Appear CLEAR. 09/08/2022 13:47 EDT UA Glucose NEGATIVE 09/08/2022 13:47 EDT UA Bili NEGATIVE 09/08/2022 13:47 EDT UA Ketones NEGATIVE 09/08/2022 13:47 EDT UA Spec Grav 1.010 09/08/2022 13:47 EDT UA Blood NEGATIVE 09/08/2022 13:47 EDT UA pH 5.00 09/08/2022 13:47 EDT UA Protein NEGATIVE 09/08/2022 13:47 EDT UA Urobilinogen 0.2 09/08/2022 13:47 EDT UA Nitrite NEGATIVE 09/08/2022 13:47 EDT UA Leuk Est NEGATIVE 09/08/2022 13:47 EDT Patient/Asphalt Tamper Signature Patient Name:DESIRE SANCHEZ I have received this information and my questions have been answered. Patient/Asphalt Tamper Name: Patient/Asphalt Tamper Signature: Relationship to Patient: Witness Name/Signature: Date: Electronically Signed on: 09/08/2022 14:38 EDTSigned by:AB CT Abdomen and Pelvis W contrast IV * Guru Johnsno MD: VERIFY, VERIFY Event Display: Report PROCEDURE INFORMATION: Exam: CT Abdomen And Pelvis With Contrast Exam date and time: 09/08/2022 12:51 PM Age: 26 years old Clinical indication: Abdominal pain; Localized; Upper; Additional info: Abd pain for a couple days, not getting better, denies n/v/d TECHNIQUE: Imaging protocol: Computed tomography of the abdomen and pelvis with contrast. Radiation optimization: All CT scans at this facility use at least one of these dose optimization techniques: automated exposure control; mA and/or kV adjustment per patient size (includes targeted exams where dose is matched to clinical indication); or iterative reconstruction. Contrast material: [id number]; Contrast volume: 100 ml; Contrast route: INTRAVENOUS (IV); REPORTING DATA: Count of CT and Cardiac NM exams in prior 12 months: This patient has received 0 known CTs and 0 known cardiac nuclear medicine studies in the 12 months prior to the current study. COMPARISON: CR XR CHEST SINGLE VIEW 08/26/2022 7:03 AM FINDINGS: Liver: The liver is homogeneous and is not enlarged. Mild intrahepatic biliary ductal dilatation. Gallbladder and bile ducts: No calcified gallstones, gallbladder wall thickening, or pericholecystic inflammation. There is dilatation of the extrahepatic duct measuring up to 13 mm on the coronal reconstructions (5:41). No calcified common bile duct calculi. Pancreas: No pancreatic mass. No peripancreatic inflammation. No pancreatic ductal dilation. Spleen: Calcified granuloma in a nonenlarged spleen. Adrenal glands: No adrenal mass. Kidneys and ureters: No renal or ureteral calculus. No hydronephrosis or hydroureter. Ill-defined focus of diminished enhancement in the medial superior pole the left kidney (3:43) and lateral lower pole of the left kidney (3:57) . No perirenal fluid or fat stranding. Stomach and bowel: No bowel obstruction or diverticulitis. Appendix: The appendix is not clearly visualized, but no inflammatory process in the expected location of the appendix. Intraperitoneal space: No ascites or pneumoperitoneum. Vasculature: The abdominal aorta and iliofemoral arteries are normal.The mesenteric arteries are patent. The mesenteric, portal, and hepatic veins are patent. Lymph nodes: No pathologically enlarged lymph nodes. Urinary bladder: No urinary bladder calculus or wall thickening. Reproductive: Unremarkable as visualized. Bones/joints: No acute osseous abnormality. Soft tissues: Tiny umbilical hernia containing fat. IMPRESSION: 1. Mild biliary ductal dilatation. Correlate with the liver function tests. 2. Foci of decreased parenchymal enhancement in the left kidney. Correlate with the urinalysis. US RENAL may be helpful, as clinically directed. 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
--- OUTSIDE RECORDS SUMMARY | 2023-05-14 12:34 | XMS_ITS | Continuity of Care Document ---
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 Name Role Phone JARRELL HOUSER DO Primary Care Physician Encounter [facility] NBR [id number] Date(s): 12/13/22 - 12/13/22 [facility] [address], [place] [address] Encounter Diagnosis Costochondritis, acute(Discharge Diagnosis) - 12/13/22 Discharge Disposition: Home or Self Care Attending Physician: Cj Allan MD Admitting Physician: Cj Allan MD Referring Physician: Cj Allan MD Allergies, Adverse Reactions, Alerts Substance Reaction Severity Status codeine Unknown Active amoxicillin Vomiting symptom Moderate Active Functional Status 12/13/22 Other exposure to Infectious Disease Non e Medications acetaminophen 325 mg oral capsule 325 mg = 1 cap, Oral, every 4 hr, PRN as needed for fever, # 90 cap, 0 Refill(s) Start Date: 09/22/22 Status: Ordered calcitriol 0.25 mcg oral capsule 0.5, Oral, BID Start Date: 06/22/22 Status: Ordered clonazePAM 1 mg oral tablet 1 mg = 1 tab, Oral, BID, 0 Refill(s) Start Date: 09/22/22 Status: Ordered FLUoxetine (Eqv-Sarafem) 20 mg oral tablet 20 mg = 1 tab, Oral, Daily, # 30 tab, 0 Refill(s) Start Date: 09/22/22 Status: Ordered gabapentin 300 mg oral capsule 300 mg = 1 cap, Oral, BID Start Date: 12/13/22 Status: Ordered levothyroxine 25 mcg (0.025 mg) oral capsule 25 mcg = 1 cap, Oral, Daily, # 30 cap, 0 Refill(s) Start Date: 06/22/22 Status: Ordered Mag-G 0 Refill(s) Start Date: 09/22/22 Status: Ordered methadone 10 mg/5 mL oral solution 60mls, Oral, every morning, PRN as needed for pain, 0 Refill(s) Start Date: 09/22/22 Status: Ordered NexIUM 20 mg oral delayed release capsule 20 mg = 1 cap, Oral, Daily, # 30 cap, 0 Refill(s) Start Date: 09/22/22 Status: Ordered Tums 500 mg oral tablet, chewable 500 mg = 1 tab, Chewed, BID, # 60 tab, 0 Refill(s) Start Date: 09/22/22 Status: Ordered Problem List Condition Confirmation Course Effective Dates Status H ealth Status Informant Abdominal pain Confirmed Active Abnormal imaging Confirmed Active Anemia Confirmed Active Anxiety Confirmed Active Back pain Confirmed Active Cellulitis Confirmed Active Chest pain Confirmed Active CKD stage 2 Confirmed Active Constipation Confirmed Active Depression Confirmed Active Epigastric pain Confirmed Active Gastritis Confirmed Active GERD - Gastro-esophageal reflux disease Confirmed Active Gynecomastia Confirmed Active Hypocalcemia Confirmed Active Hypomagnesemia Confirmed Active Iatrogenic hypoglycemia Confirmed Active Intrahepatic bile duct Confirmed Active 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 COMPARISON: 08/26/2022 FINDINGS: The lungs are well expanded and clear with no focal consolidation or pulmonary edema. The cardiomediastinal contour and pleural margins are within normal limits. IMPRESSION: No active chest disease. JOB #: [id number] Final Signed by: John Burciaga MD Signed (Electronic Signature): 12/13/2022 9:39 am Vital Signs Most recent to oldest [Reference Range]: 1 2 Temperature Temporal Artery [36-38 Deg C ] 37 Deg C (12/13/22 8:45 AM) Peripheral Pulse Rate [60-100 bpm] 75 bp m (12/13/22 9:32 AM) 77 bpm (12/13/22 8:45 AM) Heart Rate Monitored [60-100 bpm] 78 bpm (12/13/22 9:32 AM) Respiratory Rate [12-24 br/min] 11 br/mi n *LOW* (12/13/22 9:32 AM) 14 br/min (12/13/22 8:45 AM) Blood Pressure [90-140/60-90 mmHg] 117/7 5mmHg (12/13/22 8:45 AM) Weight 106.59 kg (12/13/22 8:45 AM) Weight Dosing 106.59 kg (12/13/22 9:08 AM) Height 177.000 cm (12/13/22 8:45 AM) Height/Length Dosing 177.000 cm (12/13/22 9:08 AM) Body Mass Index 34.000 kg/m2 (12/13/22 8:45 AM) Social History Social History Type Response Tobacco Never tobacco user T obacco Use:. Sex Hospital Discharge Instructions Patient Education 12/13/2022 09:18:16 Costochondritis Costochondritis Costochondritis is inflammation of the tissue (cartilage) that connects the ribs to the breastbone (sternum). This causes pain in the front of the chest. The pain usually starts slowly and involves more than one rib. What are the causes? The exact cause of this condition is not always known. It results from stress on the cartilage where your ribs attach to your sternum. The cause of this stress could be: ??? Chest injury. ??? Exercise or activity, such as lifting. ??? Severe coughing. What increases the risk? You are more likely to develop this condition if you: ??? Are female. ??? Are 30???40 years old. ??? Recently started a new exercise or work activity. ??? Have low levels of vitamin D. ??? Have a condition that makes you cough frequently. What are the signs or symptoms? The main symptom of this condition is chest pain. The pain: ??? Usually starts gradually and can be sharp or dull. ??? Gets worse with deep breathing, coughing, or exercise. ??? Gets better with rest. ??? May be worse when you press on the affected area of your ribs and sternum. How is this diagnosed? This condition is diagnosed based on your symptoms, your medical history, and a physical exam. Yourhealth care provider will check for pain when pressing on your sternum. You may also have tests to rule out other causes of chest pain. These may include: ??? A chest X-ray to check for lung problems. ??? An ECG (electrocardiogram) to see if you have a heart problem that could be causing the pain. ??? An imaging scan to rule out a chest or rib fracture. How is this treated? This condition usually goes away on its own over time. Your health care provider may prescribe an NSAID, such as ibuprofen, to reduce pain and inflammation. Treatment may also include: ??? Resting and avoiding activities that make pain worse. ??? Applying heat or ice to the area to reduce pain and inflammation. ??? Doing exercises to stretch your chest muscles. If these treatments do not help, your health care provider may inject a numbing medicine at the sternum???rib connection to help relieve the pain. Follow these instructions at home: Managing pain, stiffness, and swelling ??? If directed, put ice on the painful area. To do this: ??? Put ice in a plastic bag. ??? Place a towel between your skin and the bag. ??? Leave the ice on for 20 minutes, 2???3 times a day. ??? If directed, apply heat to the affected area as often as told by your health care provider. Usethe heat source that your health care provider recommends, such as a moist heat pack or a heating pad. ??? Place a towel between your skin and the heat source. ??? Leave the heat on for 20???30 minutes. ??? Remove the heat if your skin turns bright red. This is especially important if you are unable to feel pain, heat, or cold. You may have a greater risk of getting burned. Activity ??? Rest as told by your health care provider. Avoid activities that make pain worse. This includesany activities that use chest, abdominal, and side muscles. ??? Do not lift anything that is heavier than 10 lb (4.5 kg), or the limit that you are told, untilyour health care provider says that it is safe. ??? Return to your normal activities as told by your health care provider. Ask your health care provider what activities are safe for you. General instructions ??? Take gdgf-fai-wgukrhw and prescription medicines only as told by your health care provider. ??? Keep all follow-up visits as told by your health care provider. This is important. Contact a health care provider if: ??? You have chills or a fever. ??? Your pain does not go away or it gets worse. ??? You have a cough that does not go away. Get help right away if: ??? You have shortness of breath. ??? You have severe chest pain that is not relieved by medicines, heat, or ice. These symptoms may represent a serious problem that is an emergency. Do not wait to see if the symptoms will go away. Get medical help right away. Call your local emergency services (911 in the [place] Do not drive yourself to the hospital. Summary ??? Costochondritis is inflammation of the tissue (cartilage) that connects the ribs to the breastbone (sternum). ??? This condition causes pain in the front of the chest. ??? Costochondritis results from stress on the cartilage where your ribs attach to your sternum. ??? Treatment may include medicines, rest, heat or ice, and exercises. This information is not intended to replace advice given to you by your health care provider. Make sure you discuss any questions you have with your health care provider. Document Revised: 04/14/2020 Document Reviewed: 04/14/2020 [employer] Patient Education ?? 2021 [employer]. Follow Up Care 12/13/2022 08:45:45 With:JARRELL HOUSER DO Address: [facility] [address] [place] [address]- When:1 month only if needed Emergency department Discharge instructions * Cj Allan MD: PERFORM Event Display: ED Discharge Information Authored Date: [id number] SANCHEZ DESIRE :1995 Age:27 years Sex:Male Visit Date:12/13/2022 Primary Care Physician: JARRELL HOUSER DO Discharge Instructions We would like to thank you for allowing us to assist you with your healthcare needs. The following includes patient education materials and information regarding your injury/illness. Diagnosis from Today's Visit Costochondritis, acute Discharge Vitals Temperature??(Temporal Artery) 98.6 ??F (37 ??C) Heart Rate??(Peripheral) 75 Heart Rate??(Monitored) 78 Respiratory Rate?? 11 Blood Pressure?? 117/75?? Height?? 69.69 in (177.000 cm) Weight?? 235.03 lb (106.59 kg) BMI?? 34.000 Allergies amoxicillin??(Vomiting symptom) codeine What to Do Next Instructions from Your Care Team You have what appears to be costochondritis. ??I recommend icing the area if its particularly tender.?? This is likely due to a viral trigger.?? It may be helpful to take??2 naproxen [Aleve]??twice daily with food??along with a stomach protectant such as 20 mg of omeprazole.?? If this helps a lot it can be continued for up to 2 weeks.?? If it is not helpful there is no reason to take it.?? The condition should self resolve??within the couple weeks particularly if you take care of yourself, get a lot of sleep,??eat well,??and allow your body to heal. ?? In regards to your hoarseness, if this progresses, you should get a referral to ENT to have visualization of your vocal cords. You Need to Schedule the Following Appointments Follow Up with??CORRINA AVILA, JARRELL MEYER When:??Within 1 month, only if needed Where: [facility] [address] [place] [id number]- You were treated today on an emergency [...] What How Much When Instructions Next Dose Unchanged acetaminophen (acetaminophen 325 mg oral capsule) 1 Capsules Oral (given by mouth) Every 4 hours as needed for as needed for fever Unchanged calcitriol (calcitriol 0.25 mcg oral capsule) 0.5 Oral (given by mouth) 2 times a day Unchanged calcium carbonate (Tums 500 mg oral tablet, chewable) 1 tab Chewed 2 times a day Unchanged clonazePAM (clonazePAM 1 mg oral tablet) 1 tab Oral (given by mouth) 2 times a day Unchanged esomeprazole (NexIUM 20 mg oral delayed release capsule) 1 Capsules Oral (given by mouth) Every day Unchanged FLUoxetine (FLUoxetine (Eqv-Sarafem) 20 mg oral tablet) 1 tab Oral (given by mouth) Every day Unchanged gabapentin (gabapentin 300 mg oral capsule) 1 Capsules Oral (given by mouth) 2 times a day Unchanged levothyroxine (levothyroxine 25 mcg (0.025 mg) oral capsule) 1 Capsules Oral (given by mouth) Every day Unchanged magnesium gluconate (Mag-G) Unchanged methadone (methadone 10 mg/ 5 mL oral solution) 60mls Oral (given by mouth) Every morning as needed for as needed for pain Education Materials Costochondritis Costochondritis is inflammation of the tissue (cartilage) that connects the ribs to the breastbone (sternum). This causes pain in the front of the chest. The pain usually starts slowly and involves more than one rib. What are the causes? The exact cause of this condition is not always known. It results from stress on the cartilage where your ribs attach to your sternum. The cause of this stress could be: ? Chest injury. ? Exercise or activity, such as lifting. ? Severe coughing. What increases the risk? You are more likely to develop this condition if you: ? Are female. ? Are 30???40 years old. ? Recently started a new exercise or work activity. ? Have low levels of vitamin D. ? Have a condition that makes you cough frequently. What are the signs or symptoms? The main symptom of this condition is chest pain. The pain: ? Usually starts gradually and can be sharp or dull. ? Gets worse with deep breathing, coughing, or exercise. ? Gets better with rest. ? May be worse when you press on the affected area of your ribs and sternum. How is this diagnosed? This condition is diagnosed based on your symptoms, your medical history, and a physical exam. Yourhealth care provider will check for pain when pressing on your sternum. You may also have tests to rule out other causes of chest pain. These may include: ? A chest X-ray to check for lung problems. ? An ECG (electrocardiogram) to see if you have a heart problem that could be causing the pain. ? An imaging scan to rule out a chest or rib fracture. How is this treated? This condition usually goes away on its own over time. Your health care provider may prescribe an NSAID, such as ibuprofen, to reduce pain and inflammation. Treatment may also include: ? Resting and avoiding activities that make pain worse. ? Applying heat or ice to the area to reduce pain and inflammation. ? Doing exercises to stretch your chest muscles. If these treatments do not help, your health care provider may inject a numbing medicine at the sternum???rib connection to help relieve the pain. Follow these instructions at home: Managing pain, stiffness, and swelling ? If directed, put ice on the painful area. To do this: ? Put ice in a plastic bag. ? Place a towel between your skin and the bag. ? Leave the ice on for 20 minutes, 2???3 times a day. ? If directed, apply heat to the affected area as often as told by your health care provider. Use theheat source that your health care provider recommends, such as a moist heat pack or a heating pad. ? Place a towel between your skin and the heat source. ? Leave the heat on for 20???30 minutes. ? Remove the heat if your skin turns bright red. This is especially important if you are unable to feel pain, heat, or cold. You may have a greater risk of getting burned. Activity ? Rest as told by your health care provider. Avoid activities that make pain worse. This includes anyactivities that use chest, abdominal, and side muscles. ? Do not lift anything that is heavier than 10 lb (4.5 kg), or the limit that you are told, until your health care provider says that it is safe. ? Return to your normal activities as told by your health care provider. Ask your health care provider what activities are safe for you. General instructions ? Take iivb-sgy-auakqit and prescription medicines only as told by your health care provider. ? Keep all follow-up visits as told by your health care provider. This is important. Contact a health care provider if: ? You have chills or a fever. ? Your pain does not go away or it gets worse. ? You have a cough that does not go away. Get help right away if: ? You have shortness of breath. ? You have severe chest pain that is not relieved by medicines, heat, or ice. These symptoms may represent a serious problem that is an emergency. Do not wait to see if the symptoms will go away. Get medical help right away. Call your local emergency services (911 in the [place] Do not drive yourself to the hospital. Summary ? Costochondritis is inflammation of the tissue (cartilage) that connects the ribs to the breastbone (sternum). ? This condition causes pain in the front of the chest. ? Costochondritis results from stress on the cartilage where your ribs attach to your sternum. ? Treatment may include medicines, rest, heat or ice, and exercises. This information is not intended to replace advice given to you by your health care provider. Make sure you discuss any questions you have with your health care provider. Document Revised: 04/14/2020 Document Reviewed: 04/14/2020 [employer] Patient Education ?? 2021 [employer] Tests Performed Radiology XR Chest 2 Views 12/13/2022 09:41 EDT Patient/Residential Treatment Counselor Signature Patient Name:DESIRE SANCHEZ I have received this information and my questions have been answered. Patient/Residential Treatment Counselor Name: Patient/Residential Treatment Counselor Signature: Relationship to Patient: Witness Name/Signature: Date: Electronically Signed on: 12/13/2022 10:20 EDTSigned by:JANES Patient Care team information Care Team Personnel Name: JARRELL HOUSER DO Position: No Access Member Role: Primary Care Physician Address: Address: [address] [address] Name: Cj Allan MD Position: Physician Member Role: Referring Physician Address: Address: [address] [place] [id number] Name: Pawel Medrano Position: Nurse Member Role: Registered Nurse Care Team Related Persons Name: ARY SANCHEZ Name: MILLER SANCHEZ
--- OUTSIDE RECORDS SUMMARY | 2023-05-14 12:34 | XMS_ITS | Continuity of Care Document ---
Author Name Unknown Organization [facility] Address [address] [place] [address] Care Team Providers Care Glost Placer Name Role Phone JARRELL HOUSER DO Primary Care Physician Encounter [facility] NBR [id number] Date(s): 04/29/23 - 04/29/23 [facility] [address] [place] [address]- Discharge Disposition: Left Without Being Seen Attending Physician: Mariann Mckeon MD Admitting Physician: Mariann Mckeon MD Allergies, Adverse Reactions, Alerts Substance Reaction Severity Status codeine Unknown Active amoxicillin Vomiting symptom Moderate Active penicillin Moderate Active Medications acetaminophen 325 mg oral capsule 325 mg = 1 cap, Oral, every 4 hr, PRN as needed for fever, 0 Refill(s) Start Date: 09/22/22 Status: Ordered busPIRone 10 mg oral tablet 0 Refill(s) Start Date: 04/28/23 Status: Ordered calcitriol 0.25 mcg oral capsule 0.25 mcg = 1 cap, Oral, BID Start Date: 06/22/22 Status: Ordered cefpodoxime 200 mg oral tablet 200 mg = 1 tab, Oral, every 12 hr, # 14 tab, 0 Refill(s), Pharmacy: [id number], 178, cm, 04/25/23 7:14:00 EST, Height, 104.33, kg, 04/25/23 7:14:00 EST, Weight Dosing Start Date: 04/25/23 Stop Date: 05/02/23 Status: Ordered clonazePAM 1 mg oral tablet 1 mg = 1 tab, Oral, BID, 0 Refill(s) Start Date: 09/22/22 Status: Ordered cyclobenzaprine 10 mg oral tablet TAKE ONE TABLET BY MOUTH THREE TIMES A DAY NEEDED FOR MUSCLE SPASM Start Date: 04/28/23 Status: Ordered dicyclomine 20 mg oral tablet TAKE ONE TABLET BY MOUTH FOUR TIMES A DAY NEEDED FOR ABDOMINAL PAIN Start Date: 04/08/23 Status: Ordered doxycycline monohydrate 100 mg oral tablet 100 mg = 1 tab, Oral, BID, X 7 days, # 14 tab, 0 Refill(s), 05/02/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, Pharmacy: [id number], 178, cm, 04/25/23 7:14:00 EST, Height, 104.33, kg, 04/25/23 7:14:00 EST, Weight Dosing Start Date: 04/25/23 Stop Date: 05/02/23 Status: Ordered gabapentin 300 mg oral capsule 300 mg = 1 cap, Oral, BID Start Date: 12/13/22 Status: Ordered Mag-G 500 mg =, BID, 0 Refill(s) Start Date: 09/22/22 Status: Ordered methadone 10 mg/5 mL oral solution 110 mg =, Oral, every morning, 0 Refill(s) Start Date: 09/22/22 Status: Ordered NexIUM 20 mg oral delayed release capsule 20 mg = 1 cap, Oral, Daily, 0 Refill(s) Start Date: 09/22/22 Status: Ordered omeprazole 40 mg oral delayed release capsule 40 mg = 1 cap, Oral, Daily, # 30 cap, 0 Refill(s), Pharmacy: [id number], 178, cm, 02/28/23 14:26:00 EDT, Height/Length Dosing, 104, kg, 02/28/23 14:26:00 EDT, Weight Dosing Start Date: 02/28/23 Status: Ordered Phenergan 12.5 mg oral tablet TAKE ONE TABLET BY MOUTH THREE TIMES A DAY FOR 5 DAYS NEEDED FOR NAUSEA /VOMITING Start Date: 04/08/23 Status: Ordered sertraline 100 mg oral tablet 0 Refill(s) Start Date: 04/28/23 Status: Ordered Tums 500 mg oral tablet, chewable 500 mg = 1 tab, Chewed, BID, # 60 tab, 0 Refill(s) Start Date: 09/22/22 Status: Ordered Mental Status 04/29/23 Eye Opening Response Arthur Spontaneous ly Best Verbal Response [place] Oriented Best Motor Response Arthur Obeys comman ds [place] Coma Score 15 Problem List Condition Confirmation Course Effective Dates Status H ealth Status Informant Abdominal pain Confirmed Active Abnormal imaging Confirmed Active Anemia Confirmed Active Anxiety Confirmed Active Anxiety Confirmed Active Arthritis Confirmed Active Back pain Confirmed Active Chest pain Confirmed Active CKD stage 2 Confirmed Active Constipation Confirmed Active Depression Confirmed Active Epigastric pain Confirmed Active Gastritis Confirmed Active GERD - Gastro-esophageal reflux disease Confirmed Active Gynecomastia Confirmed Active Hypocalcemia Confirmed Active Hypomagnesemia Confirmed Active Iatrogenic hypoglycemia Confirmed Active Intrahepatic bile duct Confirmed Active 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 Nausea Confirmed Active Numbness 1 Confirmed Active Parathyroid 2 Confirmed Active PTSD - Post-traumatic stress disorder Confirmed Active Torticollis Confirmed Active 1left hand and arm intermittently ?ulna nerve per pt 2elevated Procedures Procedure Date Related Diagnosis Body Site Status Parathyroid Completed Vital Signs Most recent to oldest [Reference Range]: 1 2 Temperature Temporal Artery [36-38 Deg C ] 36.4 Deg C (04/29/23 8:02 AM) Peripheral Pulse Rate [60-100 bpm] 76 bp m (04/29/23 8:02 AM) Respiratory Rate [12-24 br/min] 16 br/mi n (04/29/23 8:02 AM) Blood Pressure [90-140/60-90 mmHg] 136/1 02mmHg (04/29/23 8:02 AM) Mean Arterial Pressure, Cuff [70-110 mmH g] 113 mmHg *HI* (04/29/23 8:02 AM) Weight 105.00 kg (04/29/23 8:02 AM) Weight Dosing 105.00 kg (04/29/23 8:17 AM) Height 178.000 cm (04/29/23 8:17 AM) 178.000 cm (04/29/23 8:02 AM) Body Mass Index 33.000 kg/m2 (04/29/23 8:02 AM) Social History Social History Type Response Tobacco Never tobacco user T obacco Use:. Sex Patient Care team information Care Team Personnel Name: JARRELL HOUSER DO Position: No Access Member Role: Primary Care Physician Address: Address: [address] [phone]- [place] Name: Jodi Patino Position: Nurse Member Role: ED Nurse Care Team Related Persons Name: ARY SANCHEZ Name: MILLER SANCHEZ
--- OUTSIDE RECORDS SUMMARY | 2023-05-14 12:34 | XMS_ITS | Continuity of Care Document ---
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 Encounter Diagnosis Biliary colic(Discharge Diagnosis) - 02/22/23 Discharge Disposition: Home or Self Care Attending Physician: Mp Knott MD Admitting Physician: Mp Knott MD Allergies, Adverse Reactions, Alerts Substance Reaction Severity Status codeine Unknown Active amoxicillin Vomiting symptom Moderate Active penicillin Moderate Active Assessment and Plan Extracted from: Title:Clinical Document Author:Ryan HERNANDEZ, And re F Date:02/22/23 Patient originally seen by Dorothea Allan. Before labs were completely resulted patient wished to go home stating he feels better. He does have upcoming cholecystectomy later next week. His labs that have come back do not show any acute abnormalities. I feel that patient be discharged. I feel his pain is related to the gallbladder which patient agrees. He states that he needs to do a better job with his diet until the surgery. I advised just that. He will return to ED as needed otherwise follow-up with cholecystectomy as previously arranged Future Appointments Diagnostic Tests Pending * GGT 02/22/23 Functional Status 02/22/23 Other exposure to Infectious Disease Non e [...] Refill(s) Start Date: 06/22/22 Status: Ordered Mag-G 500 mg =, BID, [...] Start Date: 09/22/22 Status: Ordered Mental Status 02/22/23 Eye Opening Response Lucas Spontaneous ly Best Verbal Response Arthur Oriented Best Motor Response Arthur Obeys comman ds Arthur Coma Score 15 Problem List Condition Confirmation [...] disorder Confirmed Active Torticollis Confirmed Active 1elevated Procedures Procedure Date Related Diagnosis Body Site Status Parathyroid Completed Results Laboratory List Name Date Lactic Acid 02/22/23 Automated Diff 02/22/23 CBC w/ Diff 02/22/23 Comprehensive Metabolic Panel 02/22/23 Lipase Level 02/22/23 PT/ INR 02/22/23 Troponin-I High Sensitivity 02/22/23 Most recent to oldest [Reference Range]: 1 WBC [4.8-10.8 K/mcL] 5.5 K/mcL (02/22/23 8:30 AM) RBC [4.20-6.10 Million/mcL] 3.65 Million /mcL *LOW* (02/22/23 8:30 AM) Neutro Auto [42.2-75.2 %] 55.3 % (02/22/23 8:30 AM) Lymph Auto [20.5-51.1 %] 27.8 % (02/22/23 8:30 AM) Fannin Auto [1.7-9.3 %] 13.9 % *HI* (02/22/23 8:30 AM) Basophil Auto [0.0-0.8 %] 0.5 % (02/22/23 8:30 AM) Prothrombin Time [9.1-10.6 seconds] 10.2 seconds (02/22/23 8:30 AM) INR [0.9-1.1] 1.0 1 (02/22/23 8:30 AM) BUN [8-26 mg/dL] 22 mg/dL (02/22/23 8:30 AM) Glucose Level [74-106 mg/dL] 97 mg/dL (02/22/23 8:30 AM) Potassium Level [3.5-5.1 mmol/L] 3.7 mmo l/L (02/22/23 8:30 AM) Baso Absolute [0.0-0.2 K/mcL] 0.0 K/mcL (02/22/23 8:30 AM) MCV [80.0-94.0 fL] 94.2 fL *HI* (02/22/23 8:30 AM) AST [15-41 IntlUnit/L] 25 IntlUnit/L (02/22/23 8:30 AM) ALT [17-63 IntlUnit/L] 27 IntlUnit/L (02/22/23 8:30 AM) MCHC [32.0-36.0 g/dL] 33.1 g/dL (02/22/23 8:30 AM) Osmolality [275-295 mOsm/kg] 275 mOsm/kg (02/22/23 8:30 AM) Sodium Level [134-143 mmol/L] 136 mmol/L (02/22/23 8:30 AM) Lymph Absolute [1.2-3.4 K/mcL] 1.5 K/mcL (02/22/23 8:30 AM) Hct [42.0-52.0 %] 34.4 % *LOW* (02/22/23 8:30 AM) Lipase Level [18-51 unit/L] 25 unit/L 2 (02/22/23 8:30 AM) Calcium Level [8.9-10.3 mg/dL] 8.1 mg/dL *LOW* (02/22/23 8:30 AM) Fannin Absolute [0.1-0.6 K/mcL] 0.8 K/mcL *HI* (02/22/23 8:30 AM) Albumin Level [3.5-5.0 g/dL] 3.6 g/dL (02/22/23 8:30 AM) Protein Total [6.5-8.1 g/dL] 7.4 g/dL (02/22/23 8:30 AM) MCH [27.0-31.0 pg] 31.2 pg *HI* (02/22/23 8:30 AM) Neutro Absolute [1.4-6.5 K/mcL] 3.1 K/mc L (02/22/23 8:30 AM) Bilirubin Total [0.2-1.2 mg/dL] 0.5 mg/d L (02/22/23 8:30 AM) Hgb [14.0-18.0 g/dL] 11.4 g/dL *LOW* (02/22/23 8:30 AM) Alk Phos [38-130 IntlUnit/L] 88 IntlUnit /L (02/22/23 8:30 AM) MPV [7.4-10.4 fL] 11.2 fL *HI* (02/22/23 8:30 AM) Platelets [130-400 K/mcL] 236 K/mcL (02/22/23 8:30 AM) CO2 [22-32 mmol/L] 31 mmol/L (02/22/23 8:30 AM) Eos Absolute [0.0-0.2 K/mcL] 0.1 K/mcL (02/22/23 8:30 AM) Lactic Acid Lvl [0.5-2.2 mmol/L] 0.5 mmo l/L (02/22/23 10:25 AM) Chloride Level [98-111 mmol/L] 100 mmol/ L (02/22/23 8:30 AM) RDW-CV [11.5-14.5 %] 12.2 % (02/22/23 8:30 AM) A/G Ratio [1.0-2.5 g/dL] 0.9 g/dL *LOW* (02/22/23 8:30 AM) BUN/Creat Ratio [8.0-20.0] 17.6 (02/22/23 8:30 AM) Globulin [2.3-3.5 g/dL] 3.8 g/dL *HI* (02/22/23 8:30 AM) Imm Gran Absolute 0.01 *NA* (02/22/23 8:30 AM) Imm Gran Auto [0.0-0.5 %] 0.2 % (02/22/23 8:30 AM) Creatinine Level [0.61-1.24 mg/dL] 1.25 mg/dL *HI* (02/22/23 8:30 AM) Troponin-I HS [<=20 ng/L] <2 ng/L 3 (02/22/23 8:30 AM) Anion Gap [3.0-12.0] 5.0 (02/22/23 8:30 AM) Eos, Auto [0.00-3.00 %] 2.30 % (02/22/23 8:30 AM) eGFR CKD-EPI [>=60 mL/min/1.73 m2] 80 mL /min/1.73 m2 (02/22/23 8:30 AM) 1Interpretive Data: THERAPEUTIC INR RANGES FOR WARFARIN Uncomplicated venous thromboembolic disease 2-3 Lupus Anticoagulant and recurrent thrombosis 3-3.5 Mechanical prosthetic valve or recurrent thrombosis 2.5-3.5 2Interpretive Data: B-qlebqi-m-benzoquinone imine (meabolite of Acetaminophen) will generate erroneously low lipase results in samples for patients that have taken toxic doses of acetaminophen. 3Interpretive Data: The [employer] ACCESS high-sensitivity Troponin I (hsTNI) 99 percentile cutoffs forhealthy adults are 12 ng/L or less for females and 20 ng/L or less for males. SERIAL MEASUREMENT IS HIGHLY RECOMMENDED for the diagnosis or exclusion of Acute Coronary Syndromes(ACS). Please refer to the High-Sensitivity Troponin Algorithm 2022 for guidance. As with all markers of cardiac injury, elevations of hsTnI do not in and of themselves indicate thepresence of an ischemic mechanism. Many other disease states can be associated with elevations via mechanisms different from those that cause injury in patients with ACS. These include trauma (contusion, ablation, pacing); congestive heart failure; pulmonary embolism; kidney failure; and myocarditis. Clinical judgement is necessary to distinguish patients who have ischemic heart disease from those who do not. Vital Signs Most recent to oldest [Reference Range]: 1 2 Temperature Temporal Artery [36-38 Deg C ] 36.6 Deg C (02/22/23 8:02 AM) Peripheral Pulse Rate [60-100 bpm] 72 bp m (02/22/23 10:52 AM) 73 bpm (02/22/23 8:02 AM) Respiratory Rate [12-24 br/min] 12 br/mi n (02/22/23 10:52 AM) 11 br/min *LOW* (02/22/23 8:02 AM) Blood Pressure [90-140/60-90 mmHg] 102/6 2mmHg (02/22/23 10:52 AM) 125/81mmHg (02/22/23 8:02 AM) Weight Dosing 104.33 kg (02/22/23 8:24 AM) Weight Estimated 104.33 kg (02/22/23 8:02 AM) Height/Length Dosing 178.000 cm (02/22/23 8:24 AM) Height/Length Estimated 178.000 cm (02/22/23 8:02 AM) Social History Social History Type Response Tobacco Never tobacco user T obacco Use:. Sex Hospital Discharge Instructions Patient Education 02/22/2023 09:48:01 Biliary Colic, Adult Biliary Colic, Adult Biliary colic is severe pain caused by a problem with the gallbladder. The gallbladder is a small organ in the upper right part of the abdomen. The gallbladder stores a digestive fluid produced in the liver (bile) that helps the body break down fat. Bile and other digestive enzymes are carried fromthe liver to the small intestine through tube-like structures called bile ducts. The gallbladder and the bile ducts form the biliary tract. Sometimes, hard deposits of digestive fluids (gallstones) form in the gallbladder and block the flow of bile from the gallbladder, causing biliary colic. This condition is also called a gallbladder attack. Gallstones can be as small as a grain of sand or as big as a golf ball. There could be just one gallstone in the gallbladder, or there could be many. What are the causes? This condition is usually caused by gallstones. Less often, a tumor could block the flow of bile from the gallbladder and trigger biliary colic. What increases the risk? The following factors may make you more likely to develop this condition: ??? Being female. ??? Having a family history of gallstones. ??? Being obese. ??? Losing weight suddenly or quickly. ??? Eating a diet that is high in calories, low in fiber, and rich in refined carbohydrates, such as white bread and white rice. ??? Having certain health conditions, such as: ??? An intestinal disease that affects nutrient absorption, such as Crohn's disease. ??? A metabolic condition, such as diabetes or metabolic syndrome. Metabolic syndrome occurs when someone has high blood pressure, high cholesterol, and diabetes. ??? A blood condition, such as hemolytic anemia or sickle cell disease. What are the signs or symptoms? The main symptom of this condition is severe pain in the upper right side of the abdomen. You may feel this pain below the chest but above the hip. This pain often occurs at night or after eating a meal that is high in fat. This pain may get worse for up to an hour and last as long as 12 hours. In most cases, the pain fades (subsides) within 2 hours. Other symptoms of this condition include: ??? Nausea and vomiting. ??? Pain under the right shoulder. How is this diagnosed? This condition is diagnosed based on your medical history, your symptoms, and a physical exam. You may also have tests, including: ??? Blood tests to rule out infection or inflammation of the bile ducts, gallbladder, pancreas, or liver. ??? Imaging studies, such as: ??? An ultrasound. ??? A CT scan. ??? An MRI. In some cases, you may need to have an imaging study done using a small amount of radioactive material (nuclear medicine) to confirm the diagnosis. How is this treated? This condition may be treated with medicines to: ??? Relieve your pain or nausea. ??? Dissolve the gallstones. It may take months or years before the gallstones are completely gone. If you have gallstones, or if you have a tumor in the gallbladder that is causing biliary colic, you may need surgery to remove the gallbladder (cholecystectomy). Follow these instructions at home: Eating and drinking ??? Drink enough fluid to keep your urine pale yellow. ??? Follow instructions from your health care provider about eating or drinking restrictions. Thesemay include avoiding: ??? Fatty, greasy, and fried foods. ??? Any foods that make the pain worse. ??? Overeating. ??? Having a large meal after not eating for a while. General instructions ??? Take catd-gud-pckkisq and prescription medicines only as told by your health care provider. ??? Keep all follow-up visits as told by your health care provider. This is important. How is this prevented? Steps to prevent this condition include: ??? Maintaining a healthy body weight. ??? Getting regular exercise. ??? Eating a healthy diet that is high in fiber and low in fat. ??? Limiting how much sugar and refined carbohydrates you eat. Contact a health care provider if: ??? Your pain lasts more than 5 hours. ??? You vomit. ??? You have a fever and chills. ??? Your pain gets worse. Get help right away if: ??? Your skin or the whites of your eyes look yellow (jaundice). ??? Your have tea-colored urine and light-colored stools (feces). ??? You are dizzy or you faint. Summary ??? Biliary colic is severe pain caused by a problem with the gallbladder. The gallbladder is a small organ in the upper right part of your abdomen. ??? Treatment for this condition may include medicine to relieve your pain or nausea, or medicine to slowly dissolve the gallstones. ??? If you have gallstones, or if you have a tumor in the gallbladder that is causing biliary colic, you may need surgery to remove the gallbladder (cholecystectomy). This information is not intended to replace advice given to you by your health care provider. Make sure you discuss any questions you have with your health care provider. Document Revised: 06/13/2020 Document Reviewed: 04/04/2020 [employer] Patient Education ?? 2022 [employer] Physician Emergency department Note * Berto Davis MD: PERFORM Event Display: ED Note Physician Authored Date: [id number] Patient originally seen by Dr. Allan. Before labs were completely resulted patient wished to go home stating he feels better. He does have upcoming cholecystectomy later next week. His labs that have come back do not show any acute abnormalities. I feel that patient be discharged. I feel his pain is related to the gallbladder which patient agrees. He states that he needs to do a better job withhis diet until the surgery. I advised just that. He will return to ED as needed otherwise follow-up with cholecystectomy as previously arranged Electronically Signed on 02/22/23 01:42 PM Berto Davis MD * Cj Allan MD: PERFORM Event Display: ED Note Physician Authored Date: [id number] DESIRE SANCHEZ :1995 Age:27 years Sex:Male Visit Date:02/22/2023 Primary Care Physician: JARRELL HOUSER DO Basic Information Time Seen: Cj Allan MD / 02/22/2023 08:37 Chief Complaint C/o chest pressure that woke him up this morning along with upper back pain, bilateral arm pain, SOB, and was diaphoretic. Pt has significant familial cardiac hx. D/t have gallbladder out on the . No longer diaphoretic, chest pain /10 at this time. History Of Present Illness: 27-year-old male with multiple??ED visits and known cholelithiasis, pending??elective cholecystectomy on March 06, 2023 presents to the emergency department??with an onset of epigastric and lowerchest discomfort with radiation to the back.?? No change in color of stool or urine.?? States he is eating a healthy diet without fat??including primarily fruits and vegetables.?? Denies shortness ofbreath but states diaphoretic.?? No history of cardiac disease. Review of Systems: Constitutional:??No fevers, chills, Respiratory:??No shortness of breath, cough Cardiovascular:??No?? palpitations, syncope Gastrointestinal:??No diarrhea, constipation Genitourinary:??No hematuria, or other concerning urinary symptoms Musculoskeletal:??No significant new back, neck, joint, muscle, or other MSK complaints Integumentary:??No rash, pruritus, or significant skin complaints Neurologic:??Alert, grossly oriented, no focal neurological complaints, able to give a history and consents to examination Physical Exam Vitals & Measurements T:??36.6?C ??(Temporal Artery)?? HR:??72??(Peripheral)?? RR:??12?? BP:??102/62?? SpO2:??98%?? HT:??178.000??cm?? WT:??104.33??kg??(Estimated)?? Pain Score:??7?? O2 Therapy:??Room air?? Physical exam reveals a mildly diaphoretic male appearing his stated age in no distress with??acceptable vital signs. Head neck exam reveals moist mucous membranes and a neck is supple without adenopathy or JVD Chest is clear without wheezes or crackles and heart sounds are normal without murmur or extra sound. ??He has no chest wall tenderness.?? He has epigastric tenderness on deep palpation??but most tenderness in the right??upper quadrant with a positive Cedillo sign.?? He has no tenderness on his backto percussion or palpation.?? There is no rebound or percussion tenderness and he has audible bowelsounds throughout. Medical Decision Making: This is most likely biliary colic. ??The chest pain may be some element of GERD but more likely is just an element of??biliary colic. ??He is a low risk of??cardiac disease. ??ECG was normal. ??Troponin ordered. ??Care transferred to Dr. Willis in stable condition with expectation of diagnosis of biliary colic??and home treatment with surgical follow-up. ??He may need surgery sooner than the 21st of his symptoms??become complicated or??will not self resolved. Procedure No Qualifying Data Assessment/Plan 1.??Biliary colic??K80.[address] Willis Orders: Normal Saline Flush, 10 mL, IV Flush, Injection, As Directed, PRN toll line repairer, First Dose: 02/22/23 8:44:00 EDT, Routine Sodium Chloride 0.9% 1,000 mL, Total Volume (mL): 1,000, 1,000 mL, Soln-IV, IV, 125 mL/hr, Start Date: 02/22/23 8:43:00 EDT, 104.33 kg, Populate Charting Weight From Order, 2.27, m2 GGT, Blood, Stat, 02/22/23 8:44:00 EDT, Once, Nurse collect Patient Education Biliary Colic, Adult Medication Reconciliation Unchanged acetaminophen (acetaminophen 325 mg oral capsule)1 Capsules Oral (given by mouth) every 4 hours as needed as needed for fever. ?? calcitriol (calcitriol 0.25 mcg oral capsule)0.5 Oral (given by mouth) 2 times a day. ?? calcium carbonate (Tums 500 mg oral tablet, chewable)1 tab Chewed 2 times a day. ?? clonazePAM (clonazePAM 1 mg oral tablet)1 tab Oral (given by mouth) 2 times a day. ?? esomeprazole (NexIUM 20 mg oral delayed release capsule)1 Capsules Oral (given by mouth) every day. ?? FLUoxetine (FLUoxetine (Eqv-Sarafem) 20 mg oral tablet)1 tab Oral (given by mouth) every day. ?? gabapentin (gabapentin 300 mg oral capsule)1 Capsules Oral (given by mouth) 2 times a day. ?? levothyroxine (levothyroxine 25 mcg (0.025 mg) oral capsule)1 Capsules Oral (given by mouth) every day. ?? magnesium gluconate (Mag-G)500 Milligrams 2 times a day. ?? methadone (methadone 10 mg/5 mL oral solution)60mls Oral (given by mouth) every morning as needed as needed for pain. Problem List/Past Medical History Ongoing Abdominal pain Abnormal imaging Anemia Anxiety Back pain Cellulitis Chest pain CKD stage 2 Constipation Depression Epigastric pain Gastritis GERD - Gastro-esophageal reflux disease Gynecomastia Hypocalcemia Hypomagnesemia Iatrogenic hypoglycemia Intrahepatic bile duct Multiple endocrine neoplasia syndrome type 1 Nausea Parathyroid PTSD - Post-traumatic stress disorder Torticollis Historical No qualifying data Procedure/Surgical History ???Parathyroid Medication Administration Given Sodium Chloride 0.9%, 1000 mL, IV acetaminophen, 1000 mg, IV Piggyback Allergies amoxicillin??(Vomiting symptom) penicillin codeine Social History Alcohol Past Electronic Cigarette/Vaping Electronic Cigarette Use: Never. Substance Use Past, Marijuana Tobacco Never tobacco user Tobacco Use:. Family History Anxiety: Mother. Asthma: Mother. Depression: Father. Diabetes mellitus: Father. Heart attack: Mother and Father. Hypertension: Father. MEN 1 - Multiple endocrine neoplasia syndrome type 1: Father. Mental illness: Mother. Myocardial infarction: Mother and Father. Family Member(s): ?? FATHER, at age: Unknown. Cause of : Lab Results CBC and Differential?? LATEST RESULTS?? HISTORICAL RESULTS?? WBC?? 02/22/23 08:30?? 5.5?? 02/19/23?? 6.0?? RBC?? 02/22/23 08:30?? 3.65 ??Low?? 02/19/23?? 3.74 ??Low?? Hgb?? 02/22/23 08:30?? 11.4 ??Low?? 02/19/23?? 11.8 ??Low?? Hct?? 02/22/23 08:30?? 34.4 ??Low?? 02/19/23?? 34.8 ??Low?? MCV?? 02/22/23 08:30?? 94.2 ??High?? 02/19/23?? 93.0?? MCH?? 02/22/23 08:30?? 31.2 ??High?? 02/19/23?? 31.6 ??High?? MCHC?? 02/22/23 08:30?? 33.1?? 02/19/23?? 33.9?? RDW-CV?? 02/22/23 08:30?? 12.2?? 02/19/23?? 12.3?? Platelets?? 02/22/23 08:30?? 236?? 02/19/23?? 259?? MPV?? 02/22/23 08:30?? 11.2 ??High?? 02/19/23?? 11.0 ??High?? Neutro Auto?? 02/22/23 08:30?? 55.3?? 02/19/23?? 56.5?? Lymph Auto?? 02/22/23 08:30?? 27.8?? 02/19/23?? 29.8?? Fannin Auto?? 02/22/23 08:30?? 13.9 ??High?? 02/19/23?? 10.5 ??High?? Eos, Auto?? 02/22/23 08:30?? 2.30?? 02/19/23?? 2.50?? Basophil Auto?? 02/22/23 08:30?? 0.5?? 02/19/23?? 0.5?? Imm Gran Auto?? 02/22/23 08:30?? 0.2?? 02/19/23?? 0.2?? Neutro Absolute?? 02/22/23 08:30?? 3.1?? 02/19/23?? 3.4?? Lymph Absolute?? 02/22/23 08:30?? 1.5?? 02/19/23?? 1.8?? Fannin Absolute?? 02/22/23 08:30?? 0.8 ??High?? 02/19/23?? 0.6?? Eos Absolute?? 02/22/23 08:30?? 0.1?? 02/19/23?? 0.2?? Baso Absolute?? 02/22/23 08:30?? 0.0?? 02/19/23?? 0.0?? Imm Gran Absolute?? 02/22/23 08:30?? 0.01?? 02/19/23?? 0.01? Coagulation?? LATEST RESULTS?? Prothrombin Time?? 02/22/23 08:30?? 10.2?? INR?? 02/22/23 08:30?? 1.0? Routine Chemistry?? LATEST RESULTS?? HISTORICAL RESULTS?? Sodium Level?? 02/22/23 08:30?? 136?? 02/19/23?? 135?? Potassium Level?? 02/22/23 08:30?? 3.7?? 02/19/23?? 3.6?? Chloride Level?? 02/22/23 08:30?? 100?? 02/19/23?? 99?? CO2?? 02/22/23 08:30?? 31?? 02/19/23?? 30?? Alk Phos?? 02/22/23 08:30?? 88?? 02/19/23?? 91?? AST?? 02/22/23 08:30?? 25?? 02/19/23?? 34?? ALT?? 02/22/23 08:30?? 27?? 02/19/23?? 41?? BUN?? 02/22/23 08:30?? 22?? 02/19/23?? 11?? Glucose Level?? 02/22/23 08:30?? 97?? 02/19/23?? 92?? Creatinine Level?? 02/22/23 08:30?? 1.25 ??High?? 02/19/23?? 1.22?? BUN/Creat Ratio?? 02/22/23 08:30?? 17.6?? 02/19/23?? 9.0?? eGFR CKD-EPI?? 02/22/23 08:30?? 80?? 02/19/23?? 82?? Calcium Level?? 02/22/23 08:30?? 8.1 ??Low?? 02/19/23?? 8.2 ??Low?? Protein Total?? 02/22/23 08:30?? 7.4?? 02/19/23?? 7.5?? Albumin Level?? 02/22/23 08:30?? 3.6?? 02/19/23?? 3.6?? Globulin?? 02/22/23 08:30?? 3.8 ??High?? 02/19/23?? 3.9 ??High?? A/G Ratio?? 02/22/23 08:30?? 0.9 ??Low?? 02/19/23?? 0.9 ??Low?? Bilirubin Total?? 02/22/23 08:30?? 0.5?? 02/19/23?? 0.4?? Anion Gap?? 02/22/23 08:30?? 5.0?? 02/19/23?? 6.0?? Lactic Acid Lvl?? 02/22/23 10:25?? 0.5? Lipase Level?? 02/22/23 08:30?? 25?? 02/13/23?? 26?? Osmolality?? 02/22/23 08:30?? 275?? 02/19/23?? 269 ??Low? Cardiac Isoenzymes?? LATEST RESULTS?? HISTORICAL RESULTS?? Troponin-I HS?? 02/22/23 08:30?? <2?? 02/19/23?? <2? Electronically Signed on 02/22/23 12:19 PM Cj Allan MD Emergency department Discharge instructions * Berto Davis MD: PERFORM Event Display: ED Discharge Information Authored Date: [id number] DESIRE SANCHEZ :1995 Age:27 years Sex:Male Visit Date:02/22/2023 Primary Care Physician: JARRELL HOUSER DO Discharge Instructions We would like to thank you for allowing us to assist you with your healthcare needs. The following includes patient education materials and information regarding your injury/illness. Diagnosis from Today's Visit Biliary colic Discharge Vitals Temperature??(Temporal Artery) 97.9 ??F (36.6 ??C) Heart Rate??(Peripheral) 73 Respiratory Rate?? 11 Blood Pressure?? 125/81?? Height?? 70.08 in (178.000 cm) Weight??(Estimated) 230.05 lb (104.33 kg) Allergies amoxicillin??(Vomiting symptom) penicillin codeine What to Do Next Instructions from Your Care Team Follow-up with??surgeon for??cholecystectomy as previously arranged. ??Return to ED for worsening symptoms Upcoming Scheduled Appointments 2022 10:30 AM EDT ?? Where: [facility] Status: Confirmed You were treated today on an emergency [...] mouth) Every day Unchanged magnesium gluconate (Mag-G) 500 Milligrams 2 times a day Unchanged methadone (methadone 10 mg/ 5 mL oral solution) 60mls Oral (given by mouth) Every morning as needed for as needed for pain Education Materials Biliary Colic, Adult Biliary colic is severe pain caused by a problem with the gallbladder. The gallbladder is a small organ in the upper right part of the abdomen. The gallbladder stores a digestive fluid produced in the liver (bile) that helps the body break down fat. Bile and other digestive enzymes are carried fromthe liver to the small intestine through tube-like structures called bile ducts. The gallbladder and the bile ducts form the biliary tract. Sometimes, hard deposits of digestive fluids (gallstones) form in the gallbladder and block the flow of bile from the gallbladder, causing biliary colic. This condition is also called a gallbladder attack. Gallstones can be as small as a grain of sand or as big as a golf ball. There could be just one gallstone in the gallbladder, or there could be many. What are the causes? This condition is usually caused by gallstones. Less often, a tumor could block the flow of bile from the gallbladder and trigger biliary colic. What increases the risk? The following factors may make you more likely to develop this condition: ? Being female. ? Having a family history of gallstones. ? Being obese. ? Losing weight suddenly or quickly. ? Eating a diet that is high in calories, low in fiber, and rich in refined carbohydrates, such as white bread and white rice. ? Having certain health conditions, such as: ? An intestinal disease that affects nutrient absorption, such as Crohn's disease. ? A metabolic condition, such as diabetes or metabolic syndrome. Metabolic syndrome occurs when someone has high blood pressure, high cholesterol, and diabetes. ? A blood condition, such as hemolytic anemia or sickle cell disease. What are the signs or symptoms? The main symptom of this condition is severe pain in the upper right side of the abdomen. You may feel this pain below the chest but above the hip. This pain often occurs at night or after eating a meal that is high in fat. This pain may get worse for up to an hour and last as long as 12 hours. In most cases, the pain fades (subsides) within 2 hours. Other symptoms of this condition include: ? Nausea and vomiting. ? Pain under the right shoulder. How is this diagnosed? This condition is diagnosed based on your medical history, your symptoms, and a physical exam. You may also have tests, including: ? Blood tests to rule out infection or inflammation of the bile ducts, gallbladder, pancreas, or liver. ? Imaging studies, such as: ? An ultrasound. ? A CT scan. ? An MRI. In some cases, you may need to have an imaging study done using a small amount of radioactive material (nuclear medicine) to confirm the diagnosis. How is this treated? This condition may be treated with medicines to: ? Relieve your pain or nausea. ? Dissolve the gallstones. It may take months or years before the gallstones are completely gone. If you have gallstones, or if you have a tumor in the gallbladder that is causing biliary colic, you may need surgery to remove the gallbladder (cholecystectomy). Follow these instructions at home: Eating and drinking ? Drink enough fluid to keep your urine pale yellow. ? Follow instructions from your health care provider about eating or drinking restrictions. These mayinclude avoiding: ? Fatty, greasy, and fried foods. ? Any foods that make the pain worse. ? Overeating. ? Having a large meal after not eating for a while. General instructions ? Take [id number] and prescription medicines only as told by your health care provider. ? Keep all follow-up visits as told by your health care provider. This is important. How is this prevented? Steps to prevent this condition include: ? Maintaining a healthy body weight. ? Getting regular exercise. ? Eating a healthy diet that is high in fiber and low in fat. ? Limiting how much sugar and refined carbohydrates you eat. Contact a health care provider if: ? Your pain lasts more than 5 hours. ? You vomit. ? You have a fever and chills. ? Your pain gets worse. Get help right away if: ? Your skin or the whites of your eyes look yellow (jaundice). ? Your have tea-colored urine and light-colored stools (feces). ? You are dizzy or you faint. Summary ? Biliary colic is severe pain caused by a problem with the gallbladder. The gallbladder is a small organ in the upper right part of your abdomen. ? Treatment for this condition may include medicine to relieve your pain or nausea, or medicine to slowly dissolve the gallstones. ? If you have gallstones, or if you have a tumor in the gallbladder that is causing biliary colic, you may need surgery to remove the gallbladder (cholecystectomy). This information is not intended to replace advice given to you by your health care provider. Make sure you discuss any questions you have with your health care provider. Document Revised: 06/13/2020 Document Reviewed: 04/04/2020 [employer] Patient Education ?? 2022 [employer] Tests Performed Medications and Immunizations Administered Given Sodium Chloride 0.9%, 1000 mL, IV acetaminophen, 1000 mg, IV Piggyback Lab Test Name Test Result Date/Time WBC 5.5 K/mcL 02/22/2023 08:30 EDT RBC 3.65 Million/mcL 02/22/2023 08:30 EDT Hgb 11.4 g/dL 02/22/2023 08:30 EDT Hct 34.4 % 02/22/2023 08:30 EDT MCV 94.2 fL 02/22/2023 08:30 EDT MCH 31.2 pg 02/22/2023 08:30 EDT MCHC 33.1 g/dL 02/22/2023 08:30 EDT RDW-CV 12.2 % 02/22/2023 08:30 EDT Platelets 236 K/mcL 02/22/2023 08:30 EDT MPV 11.2 fL 02/22/2023 08:30 EDT Neutro Auto 55.3 % 02/22/2023 08:30 EDT Lymph Auto 27.8 % 02/22/2023 08:30 EDT Fannin Auto 13.9 % 02/22/2023 08:30 EDT Eos, Auto 2.30 % 02/22/2023 08:30 EDT Basophil Auto 0.5 % 02/22/2023 08:30 EDT Imm Gran Auto 0.2 % 02/22/2023 08:30 EDT Neutro Absolute 3.1 K/mcL 02/22/2023 08:30 EDT Lymph Absolute 1.5 K/mcL 02/22/2023 08:30 EDT Fannin Absolute 0.8 K/mcL 02/22/2023 08:30 EDT Eos Absolute 0.1 K/mcL 02/22/2023 08:30 EDT Baso Absolute 0.0 K/mcL 02/22/2023 08:30 EDT Imm Gran Absolute 0.01 02/22/2023 08:30 EDT Prothrombin Time 10.2 seconds 02/22/2023 08:30 EDT INR 1.0 02/22/2023 08:30 EDT Sodium Level 136 mmol/L 02/22/2023 08:30 EDT Potassium Level 3.7 mmol/L 02/22/2023 08:30 EDT Chloride Level 100 mmol/L 02/22/2023 08:30 EDT CO2 31 mmol/L 02/22/2023 08:30 EDT Alk Phos 88 IntlUnit/L 02/22/2023 08:30 EDT AST 25 IntlUnit/L 02/22/2023 08:30 EDT ALT 27 IntlUnit/L 02/22/2023 08:30 EDT BUN 22 mg/dL 02/22/2023 08:30 EDT Glucose Level 97 mg/dL 02/22/2023 08:30 EDT Creatinine Level 1.25 mg/dL 02/22/2023 08:30 EDT BUN/Creat Ratio 17.6 02/22/2023 08:30 EDT eGFR CKD-EPI 80 mL/min/1.73 m2 02/22/2023 08:30 EDT Calcium Level 8.1 mg/dL 02/22/2023 08:30 EDT Protein Total 7.4 g/dL 02/22/2023 08:30 EDT Albumin Level 3.6 g/dL 02/22/2023 08:30 EDT Globulin 3.8 g/dL 02/22/2023 08:30 EDT A/G Ratio 0.9 g/dL 02/22/2023 08:30 EDT Bilirubin Total 0.5 mg/dL 02/22/2023 08:30 EDT Anion Gap 5.0 02/22/2023 08:30 EDT Lipase Level 25 unit/L 02/22/2023 08:30 EDT Osmolality 275 mOsm/kg 02/22/2023 08:30 EDT Troponin-I HS <2 ng/L 02/22/2023 08:30 EDT Patient/Telephone Answerer Signature Patient Name:DESIRE SANCHEZ I have received this information and my questions have been answered. Patient/Telephone Answerer Name: Patient/Telephone Answerer Signature: Relationship to Patient: Witness Name/Signature: Date: Electronically Signed on: 02/22/2023 10:48 EDTSigned by:EDGAR Patient Care team information Care Team Personnel Name: JARRELL HOUSER DO Position: No Access Member Role: Primary Care Physician Address: Address: [address] [id number] Name: Cj Allan MD Position: Physician Member Role: ED Physician Address: Address: [address] [place] [phone] [place] Name: Arpita Key Position: Nurse Member Role: ED Nurse Care Team Related Persons Name: ARY SANCHEZ Address: Home Name: MILLER SANCHEZ Address: Home
--- OUTSIDE RECORDS SUMMARY | 2023-05-14 12:34 | XMS_ITS | Continuity of Care Document ---
Author Name Unknown Organization [facility] Address [address] [place] [address] Care Team Providers Care Enterostomal Nurse Name Role Phone JARRELL HOUSER DO Primary Care Physician Encounter LTTL_HI FIN NBR [id number] Date(s): 03/09/23 - 03/09/23 [facility] [address] [place] [address]- Encounter Diagnosis Cholelithiasis(Discharge Diagnosis) - 03/09/23 Constipation in male(Discharge Diagnosis) - 03/09/23 Calculus of gallbladder without cholecystitis without obstruction(Final) - Constipation, unspecified(Final) - Discharge Disposition: Home or Self Care Attending Physician: Bryan Sheldon DO Admitting Physician: Bryan Sheldon DO Allergies, Adverse Reactions, Alerts Substance Reaction Severity Status codeine Unknown Active amoxicillin Vomiting symptom Moderate Active penicillin Moderate Active Assessment and Plan Future Appointments Medications acetaminophen 325 mg oral capsule 325 [...] Daily, # 30 cap, 0 Refill(s), Pharmacy: [facility], 178, cm, 02/28/23 14:26:00 EDT, Height/Length Dosing, 104, kg, 02/28/23 14:26:00 EDT, Weight Dosing Start Date: 02/28/23 Status: Ordered Tums 500 mg oral tablet, chewable 500 mg = 1 tab, Chewed, BID, # 60 tab, 0 Refill(s) Start Date: 09/22/22 Status: Ordered Mental Status 03/09/23 Eye Opening Response Arthur Spontaneous ly Best Verbal Response [place] Oriented Best Motor Response Arthur Obeys comman [...] Parathyroid Completed Results Laboratory List Name Date Automated Diff 03/09/23 CBC w/ Diff 03/09/23 Comprehensive Metabolic Panel (CMP) 03/09 Lipase Level 03/09/23 Urinalysis with Micro if Indicated and C ulture if Indicated 03/09/23 Most recent to oldest [Reference Range]: 1 WBC [4.8-10.8 K/mcL] 8.1 K/mcL (03/09/23 10:52 AM) RBC [4.20-6.10 Million/mcL] 3.92 Million /mcL *LOW* (03/09/23 10:52 AM) Neutro Auto [42.2-75.2 %] 53.8 % (03/09/23 10:52 AM) Lymph Auto [20.5-51.1 %] 30.6 % (03/09/23 10:52 AM) [place] Auto [1.7-9.3 %] 11.7 % *HI* (03/09/23 10:52 AM) Basophil Auto [0.0-0.8 %] 0.6 % (03/09/23 10:52 AM) BUN [8-26 mg/dL] 17 mg/dL (03/09/23 10:52 AM) UA Color [Yellow] Lia *ABN* (03/09/23 10:52 AM) Glucose Level [74-106 mg/dL] 99 mg/dL (03/09/23 10:52 AM) Potassium Level [3.5-5.1 mmol/L] 4.0 mmo l/L (03/09/23 10:52 AM) Baso Absolute [0.0-0.2 K/mcL] 0.0 K/mcL (03/09/23 10:52 AM) MCV [80.0-94.0 fL] 91.8 fL (03/09/23 10:52 AM) UA Urobilinogen [0.2] 0.2 (03/09/23 10:52 AM) UA Bili [Negative] Negative (03/09/23 10:52 AM) UA Ketones [Negative] Trace *ABN* (03/09/23 10:52 AM) AST [15-41 IntlUnit/L] 32 IntlUnit/L (03/09/23 10:52 AM) ALT [17-63 IntlUnit/L] 35 IntlUnit/L (03/09/23 10:52 AM) MCHC [32.0-36.0 g/dL] 34.2 g/dL (03/09/23 10:52 AM) Osmolality [275-295 mOsm/kg] 277 mOsm/kg (03/09/23 10:52 AM) Sodium Level [134-143 mmol/L] 138 mmol/L (03/09/23 10:52 AM) UA Leuk Est [Negative] Negative (03/09/23 10:52 AM) Lymph Absolute [1.2-3.4 K/mcL] 2.5 K/mcL (03/09/23 10:52 AM) UA Nitrite [Negative] Negative (03/09/23 10:52 AM) UA Glucose [Negative] Negative (03/09/23 10:52 AM) Hct [42.0-52.0 %] 36.0 % *LOW* (03/09/23 10:52 AM) Lipase Level [18-51 unit/L] 28 unit/L 1 (03/09/23 10:52 AM) Calcium Level [8.9-10.3 mg/dL] 8.5 mg/dL *LOW* (03/09/23 10:52 AM) [place] Absolute [0.1-0.6 K/mcL] 1.0 K/mcL *HI* (03/09/23 10:52 AM) Albumin Level [3.5-5.0 g/dL] 3.7 g/dL (03/09/23 10:52 AM) Protein Total [6.5-8.1 g/dL] 7.5 g/dL (03/09/23 10:52 AM) UA Protein [Negative] Trace *ABN* (03/09/23 10:52 AM) MCH [27.0-31.0 pg] 31.4 pg *HI* (03/09/23 10:52 AM) Neutro Absolute [1.4-6.5 K/mcL] 4.4 K/mc L (03/09/23 10:52 AM) Bilirubin Total [0.2-1.2 mg/dL] 0.4 mg/d L (03/09/23 10:52 AM) Hgb [14.0-18.0 g/dL] 12.3 g/dL *LOW* (03/09/23 10:52 AM) Alk Phos [38-130 IntlUnit/L] 84 IntlUnit /L (03/09/23 10:52 AM) UA Blood [Negative] Negative (03/09/23 10:52 AM) MPV [7.4-10.4 fL] 10.4 fL (03/09/23 10:52 AM) UA Spec Grav [1.001-1.030] 1.025 (03/09/23 10:52 AM) Platelets [130-400 K/mcL] 315 K/mcL (03/09/23 10:52 AM) CO2 [22-32 mmol/L] 29 mmol/L (03/09/23 10:52 AM) Eos Absolute [0.0-0.2 K/mcL] 0.2 K/mcL (03/09/23 10:52 AM) UA pH [5.00-9.00] 6.50 (03/09/23 10:52 AM) UA Appear [Clear] Clear (03/09/23 10:52 AM) Chloride Level [98-111 mmol/L] 100 mmol/ L (03/09/23 10:52 AM) RDW-CV [11.5-14.5 %] 11.9 % (03/09/23 10:52 AM) A/G Ratio [1.0-2.5 g/dL] 1.0 g/dL (03/09/23 10:52 AM) BUN/Creat Ratio [8.0-20.0] 13.6 (03/09/23 10:52 AM) Globulin [2.3-3.5 g/dL] 3.8 g/dL *HI* (03/09/23 10:52 AM) Imm Gran Absolute 0.04 *NA* (03/09/23 10:52 AM) Imm Gran Auto [0.0-0.5 %] 0.5 % (03/09/23 10:52 AM) Slide Review Not Indicated (03/09/23 10:52 AM) Urine Srce Clean Catch (03/09/23 10:52 AM) Creatinine Level [0.61-1.24 mg/dL] 1.25 mg/dL *HI* (03/09/23 10:52 AM) Anion Gap [3.0-12.0] 9.0 (03/09/23 10:52 AM) Eos, Auto [0.00-3.00 %] 2.80 % (03/09/23 10:52 AM) eGFR CKD-EPI [>=60 mL/min/1.73 m2] 80 mL /min/1.73 m2 (03/09/23 10:52 AM) 1Interpretive Data: C-rcbynq-x-benzoquinone imine (meabolite of Acetaminophen) will generate erroneously low lipase results in samples for patients that have taken toxic doses of acetaminophen. Radiology Reports * Exam Date Time Procedure Performing Provider Status 03/09/23 12:[address] Abdomen and Pelvi s w/ Contrast Bobbi Benjamin; Auth (Verified) Notes: (CT Abdomen and Pelvis w/ Contrast) Reason For Exam: abd pain, known gallstones CT Abdomen and Pelvis w/ Contrast PROCEDURE INFORMATION: Exam: CT Abdomen And Pelvis With Contrast Exam date and time: 03/09/2023 12:05 PM Age: 27 years old Clinical indication: Abdominal pain; Epigastric; Additional info: Abd pain, known gallstones TECHNIQUE: Imaging protocol: Computed tomography of the abdomen and pelvis with contrast. Radiation optimization: All CT scans at this facility use at least one of these dose optimization techniques: automated exposure control; mA and/or kV adjustment per patient size (includes targeted exams where dose is matched to clinical indication); or iterative reconstruction. Contrast material: [id number]; Contrast volume: 100 ml; Contrast route: INTRAVENOUS (IV); REPORTING DATA: Count of CT and Cardiac NM exams in prior 12 months: This patient has received 4 known CTs and 0 known cardiac nuclear medicine studies in the 12 months prior to the current study. COMPARISON: CT ABD/PELVIS W CONTRAST 03/01/2023 7:34 AM FINDINGS: Lungs: Interstitial prominence and trace basilar airspace disease. Liver: Fatty infiltration of the liver. Gallbladder and bile ducts: Cholelithiasis. Pancreas: No pancreatic mass. Spleen: Punctate calcification in the enlarged spleen measuring 13.9 cm in length. Adrenal glands: Unremarkable adrenals. Kidneys and ureters: Stable 1.6 cm nodular hypodense lesion in the superomedial left kidney. No hydronephrosis. Stomach and bowel: Fluid-filled stomach. Prominent stool, in a pattern suggesting constipation. Diverticula, without pericolonic inflammation. Wall thickening in the nondistended rectum (series 3: Image 145). Appendix: No acute appendicitis. Intraperitoneal space: No significant intraperitoneal fluid. Vasculature: Normal caliber of the abdominal aorta. Pelvic vascular calcifications. Lymph nodes: Subcentimeter lymph nodes. Urinary bladder: Nondistended bladder. Reproductive: Punctate prostate calcification. Bones/joints: Chronic compression deformities in the inferior thoracic spine. Soft tissues: Scrotal calcifications. IMPRESSION: 1. Cholelithiasis. 2. Prominent stool, in a pattern suggesting constipation. 3. Wall thickening in the nondistended rectum (series 3: Image 145). 4. Additional findings as described above. THIS DOCUMENT HAS BEEN ELECTRONICALLY SIGNED BY TONNY DOUGHERTY MD on 03/09/2023 12:47 PM Final Signed by: Tonny Dougherty MD Signed (Electronic Signature): 03/09/2023 12:47 pm Vital Signs Most recent to oldest [Reference Range]: 1 2 3 Temperature Temporal Artery [36-38 Deg C] 35.9 Deg C *LOW* (03/09/23 10:36 AM) Peripheral Pulse Rate [60-100 bpm] 72 bpm (03/09/23 1:00 PM) 72 bpm (03/09/23 12:30 PM) 69 bpm (03/09/23 12:00 PM) Respiratory Rate [12-24 br/min] 14 br/min (03/09/23 10:36 AM) Blood Pressure [90-140/60-90 mmHg] 98/59mmHg (03/09/23 1:00 PM) 104/65mmHg (03/09/23 12:00 PM) 103/71mmHg (03/09/23 11:30 AM) Mean Arterial Pressure Cuff 70 mmHg (03/09/23 1:00 PM) 81 mmHg (03/09/23 11:00 AM) Weight 104.30 kg (03/09/23 10:36 AM) Weight Dosing 104.30 kg (03/09/23 10:57 AM) Height 178.000 cm (03/09/23 10:36 AM) Height/Length Dosing 178.000 cm (03/09/23 10:57 AM) Body Mass Index 33.000 kg/m2 (03/09/23 10:36 AM) Social History Social History Type Response Tobacco Never tobacco user T obacco Use:. Sex Hospital Discharge Instructions Patient Education 03/09/2023 12:23:09 Constipation, Adult Constipation, Adult Constipation is when a person has fewer than three bowel movements in a week, has difficulty havinga bowel movement, or has stools (feces) that are dry, hard, or larger than normal. Constipation maybe caused by an underlying condition. It may become worse with age if a person takes certain medicines and does not take in enough fluids. Follow these instructions at home: Eating and drinking ??? Eat foods that have a lot of fiber, such as beans, whole grains, and fresh fruits and vegetables. ??? Limit foods that are low in fiber and high in fat and processed sugars, such as fried or sweet foods. These include [place] fries, hamburgers, cookies, candies, and soda. ??? Drink enough fluid to keep your urine pale yellow. General instructions ??? Exercise regularly or as told by your health care provider. Try to do 150 minutes of moderate exercise each week. ??? Use the bathroom when you have the urge to go. Do not hold it in. ??? Take ebll-hez-qelaelv and prescription medicines only as told by your health care provider. This includes any fiber supplements. ??? During bowel movements: ??? Practice deep breathing while relaxing the lower abdomen. ??? Practice pelvic floor relaxation. ??? Watch your condition for any changes. Let your health care provider know about them. ??? Keep all follow-up visits as told by your health care provider. This is important. Contact a health care provider if: ??? You have pain that gets worse. ??? You have a fever. ??? You do not have a bowel movement after 4 days. ??? You vomit. ??? You are not hungry or you lose weight. ??? You are bleeding from the opening between the buttocks (anus). ??? You have thin, pencil-like stools. Get help right away if: ??? You have a fever and your symptoms suddenly get worse. ??? You leak stool or have blood in your stool. ??? Your abdomen is bloated. ??? You have severe pain in your abdomen. ??? You feel dizzy or you faint. Summary ??? Constipation is when a person has fewer than three bowel movements in a week, has difficulty having a bowel movement, or has stools (feces) that are dry, hard, or larger than normal. ??? Eat foods that have a lot of fiber, such as beans, whole grains, and fresh fruits and vegetables. ??? Drink enough fluid to keep your urine pale yellow. ??? Take qwtn-kde-jhlmxre and prescription medicines only as told by your health care provider. This includes any fiber supplements. This information is not intended to replace advice given to you by your health care provider. Make sure you discuss any questions you have with your health care provider. Document Revised: 04/19/2020 Document Reviewed: 04/19/2020 [employer] Patient Education ?? 2022 [employer]. 03/09/2023 12:23:06 Cholelithiasis Cholelithiasis Cholelithiasis is a disease in which gallstones form in the gallbladder. The gallbladder is an organ that stores bile. Bile is a fluid that helps to digest fats. Gallstones begin as small crystals and can slowly grow into stones. They may cause no symptoms until they block the gallbladder duct, or cystic duct, when the gallbladder tightens (contracts) after food is eaten. This can cause pain and is known as a gallbladder attack, or biliary colic. There are two main types of gallstones: ??? Cholesterol stones. These are the most common type of gallstone. These stones are made of hardened cholesterol and are usually yellow-green in color. Cholesterol is a fat-like substance that is made in the liver. ??? Pigment stones. These are dark in color and are made of a red-yellow substance, called bilirubin,that forms when hemoglobin from red blood cells breaks down. What are the causes? This condition may be caused by an imbalance in the different parts that make bile. This can happenif the bile: ??? Has too much bilirubin. This can happen in certain blood diseases, such as sickle cell anemia. ??? Has too much cholesterol. ??? Does not have enough bile salts. These salts help the body absorb and digest fats. In some cases, this condition can also be caused by the gallbladder not emptying completely or often enough. This is common during . What increases the risk? The following factors may make you more likely to develop this condition: ??? Being female. ??? Having multiple pregnancies. Health care providers sometimes advise removing diseased gallbladders before future pregnancies. ??? Eating a diet that is heavy in fried foods, fat, and refined carbohydrates, such as white breadand white rice. ??? Being obese. ??? Being older than age 40. ??? Using medicines that contain female hormones (estrogen) for a long time. ??? Losing weight quickly. ??? Having a family history of gallstones. ??? Having certain medical problems, such as: ??? Diabetes mellitus. ??? Cystic fibrosis. ??? Crohn's disease. ??? Cirrhosis or other long-term (chronic) liver disease. ??? Certain blood diseases, such as sickle cell anemia or leukemia. What are the signs or symptoms? In many cases, having gallstones causes no symptoms. When you have gallstones but do not have symptoms, you have silent gallstones. If a gallstone blocks your bile duct, it can cause a gallbladder attack. The main symptom of a gallbladder attack is sudden pain in the upper right part of the abdomen. The pain: ??? Usually comes at night or after eating. ??? Can last for one hour or more. ??? Can spread to your right shoulder, back, or chest. ??? Can feel like indigestion. This is discomfort, burning, or fullness in your upper abdomen. If the bile duct is blocked for more than a few hours, it can cause an infection or inflammation ofyour gallbladder (cholecystitis), liver, or pancreas. This can cause: ??? Nausea or vomiting. ??? Bloating. ??? Pain in your abdomen that lasts for 5 hours or longer. ??? Tenderness in your upper abdomen, often in the upper right section and under your rib cage. ??? Fever or chills. ??? Skin or the white parts of your eyes turning yellow (jaundice). This usually happens when a stone has blocked bile from passing through the common bile duct. ??? Dark urine or light-colored stools. How is this diagnosed? This condition may be diagnosed based on: ??? A physical exam. ??? Your medical history. ??? Ultrasound. ??? CT scan. ??? MRI. You may also have other tests, including: ??? Blood tests to check for signs of an infection or inflammation. ??? Cholescintigraphy, or HIDA scan. This is a scan of your gallbladder and bile ducts (biliary system) using non-harmful radioactive material and special cameras that can see the radioactive material. ??? Endoscopic retrograde cholangiopancreatogram. This involves inserting a small tube with a camera on the end (endoscope) through your mouth to look at bile ducts and check for blockages. How is this treated? Treatment for this condition depends on the severity of the condition. Silent gallstones do not need treatment. Treatment may be needed if a blockage causes a gallbladder attack or other symptoms. Treatment may include: ??? Home care, if symptoms are not severe. ??? During a simple gallbladder attack, stop eating and drinking for 12???24 hours (except for water and clear liquids). This helps to cool down your gallbladder. After 1 or 2 days, you can start to eat a diet of simple or clear foods, such as broths and crackers. ??? You may also need medicines for pain or nausea or both. ??? If you have cholecystitis and an infection, you will need antibiotics. ??? A hospital stay, if needed for pain control or for cholecystitis with severe infection. ??? Cholecystectomy, or surgery to remove your gallbladder. This is the most common treatment if all other treatments have not worked. ??? Medicines to break up gallstones. These are most effective at treating small gallstones. Medicines may be used for up to 6???12 months. ??? Endoscopic retrograde cholangiopancreatogram. A small basket can be attached to the endoscope and used to capture and remove gallstones, mainly those that are in the common bile duct. Follow these instructions at home: Medicines ??? Take mdab-ujh-fuiswor and prescription medicines only as told by your health care provider. ??? If you were prescribed an antibiotic medicine, take it as told by your health care provider. Donot stop taking the antibiotic even if you start to feel better. ??? Ask your health care provider if the medicine prescribed to you requires you to avoid driving or using machinery. Eating and drinking ??? Drink enough fluid to keep your urine pale yellow. This is important during a gallbladder attack. Water and clear liquids are preferred. ??? Follow a healthy diet. This includes: ??? Reducing fatty foods, such as fried food and foods high in cholesterol. ??? Reducing refined carbohydrates, such as white bread and white rice. ??? Eating more fiber. Aim for foods such as almonds, fruit, and beans. Alcohol use ??? If you drink alcohol: ??? Limit how much you use to: ??? 0???1 drink a day for non women. ??? 0???2 drinks a day for men. ??? Be aware of how much alcohol is in your drink. In the [place] one drink equals one 12 oz bottle of beer (355 mL), one 5 oz glass of wine (148 mL), or one 1?? oz glass of hard liquor (44 mL). General instructions ??? Do not use any products that contain nicotine or tobacco, such as cigarettes, e-cigarettes, andchewing tobacco. If you need help quitting, ask your health care provider. ??? Maintain a healthy weight. ??? Keep all follow-up visits as told by your health care provider. These may include consultationswith a surgeon or specialist. This is important. Where to find more information ??? National [place] of Diabetes and Digestive and Kidney Diseases: www.niddk.nih.gov Contact a health care provider if: ??? You think you have had a gallbladder attack. ??? You have been diagnosed with silent gallstones and you develop pain in your abdomen or indigestion. ??? You begin to have attacks more often. ??? You have dark urine or light-colored stools. Get help right away if: ??? You have pain from a gallbladder attack that lasts for more than 2 hours. ??? You have pain in your abdomen that lasts for more than 5 hours or is getting worse. ??? You have a fever or chills. ??? You have nausea and vomiting that do not go away. ??? You develop jaundice. Summary ??? Cholelithiasis is a disease in which gallstones form in the gallbladder. ??? This condition may be caused by an imbalance in the different parts that make bile. This can happen if your bile has too much bilirubin or cholesterol, or does not have enough bile salts. ??? Treatment for gallstones depends on the severity of the condition. Silent gallstones do not need treatment. ??? If gallstones cause a gallbladder attack or other symptoms, treatment usually involves not eating or drinking anything. Treatment may also include pain medicines and antibiotics, and it sometimesincludes a hospital stay. ??? Surgery to remove the gallbladder is common if all other treatments have not worked. This information is not intended to replace advice given to you by your health care provider. Make sure you discuss any questions you have with your health care provider. Document Revised: 04/24/2020 Document Reviewed: 04/24/2020 [employer] Patient Education ?? 2022 [employer]. Follow Up Care 03/09/2023 10:36:18 With:Marlo Urbina MD Address: [facility] [address] [place] [phone]- When:1 month Comments:Follow-up as scheduled, contact the office to see if your surgery may be pushed forward??however asof today there is no need for??intervention from Dr. Urbina With:Follow-up with your primary care Address: When:1 week Comments:Follow-up with your primary care as needed, they will be able to reevaluate if necessaryReturn to ED if concerns Physician Emergency department Note * ANDREW Sequeira: PERFORM Event Display: ED Note Physician Authored Date: [id number] SANCHEZDESIRE :1995 Age:27 years Sex:Male Visit Date:03/09/2023 Primary Care Physician: JARRELL HOUSER DO Basic Information Time Seen: ANDREW Sequeira / 03/09/2023 10:39 Chief Complaint Gallstones dx in November, no surgery until Apr. Back, shoulder and abdominal pain started last night, hasn't been resolving. States the pain in okay sometimes, flares others. History Of Present Illness: Patient is a 27-year-old male presents emergency department with a longstanding history of abdominal pain and cholelithiasis. ??He is scheduled in April??to have his gallbladder removed. ??He has generalized abdominal pain that comes in waves??he is passing stool but not significant amounts??hashad some nausea without vomiting and feels as though he was febrile yesterday. ??He has taken Tylenol and Motrin continues his normal medication regimen??and presents once again for abdominal discomfort. ??Patient notes that??he was scheduled for his cholecystectomy last week however a family member was afflicted with COVID??and for this reason the surgery was canceled despite him not having any??symptoms. Review of Systems: See HPI Physical Exam Vitals & Measurements T:??35.9?C ??(Temporal Artery)?? HR:??72??(Peripheral)?? RR:??14?? BP:??98/59?? SpO2:??94%?? HT:??178.000??cm?? WT:??104.30??kg?? BMI:??33.000?? Pain Score:??7?? O2 Therapy:??Room air?? Patient alert oriented age-appropriate well-nourished nontoxic Normocephalic atraumatic Neck supple nontender EOM intact, PERRLA, sclera nonicteric Clear to auscultation bilaterally Regular rate and rhythm no murmurs Abdominal exam reveals normal bowel sounds, negative rebound tenderness, negative psoas sign Generalized discomfort to the abdomen upon deep palpation Appropriate mood and affect Medical Decision Making: CT is revealed as below Laboratory evaluation is unremarkable patient was given Toradol while here in the emergency department??and is found to be resting during his reexamination Procedure No Qualifying Data Assessment/Plan 1.??Cholelithiasis??K80.20 2.??Constipation in male??K59.00 Patient is found to have significant amount of constipation and for this reason he will be placed on MiraLAX. ??He will do this 1-2 times daily until healthy bowel movement and will follow with general surgery for his cholelithiasis. ??He agrees with this plan Orders: Discharge Patient, 03/09/23 13:24:00 EDT Patient Education Constipation, Adult Cholelithiasis Follow Up With When Contact Information Marlo Urbina MD Within 1 month [facility] [address] [place], [place] [id number]- Additional Instructions: Follow-up as scheduled, contact the office to see if your surgery may be pushed forward??however as of today there is no need for??intervention from Dr. Urbina Follow-up with your primary care Within 1 week Additional Instructions: Follow-up with your primary care as needed, they will be able to reevaluate if necessary Return to ED if concerns Medication Reconciliation Unchanged acetaminophen (acetaminophen 325 mg [...] by mouth) 2 times a day. ?? magnesium gluconate (Mag-G)500 Milligrams 2 times a day. ?? methadone (methadone 10 mg/5 mL oral solution)110 Milligrams Oral (given by mouth) every morning. ?? omeprazole (omeprazole 40 mg oral delayed release capsule)1 Capsules Oral (given by mouth) every day. Refills: 0. 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 Nausea Numbness Parathyroid PTSD - Post-traumatic stress disorder Torticollis Historical Cellulitis History of opioid abuse Procedure/Surgical History ???Parathyroid Medication Administration Given Toradol, 15 mg, IV Push Allergies amoxicillin??(Vomiting symptom) penicillin codeine Social History [...] FATHER, at age: Unknown. Cause of : Diagnostic Results CT Abdomen and Pelvis w/ Contrast 03/09/2023 12:[address] Abdomen and Pelvis w/ Contrast ?? 03/09/23 12:05:47 PROCEDURE INFORMATION: Exam: CT Abdomen And Pelvis With Contrast Exam date and time: 03/09/2023 12:05 PM Age: 27 years old Clinical indication: Abdominal pain; Epigastric; Additional info: Abd pain, known gallstones ?? TECHNIQUE: Imaging protocol: Computed tomography of the abdomen and pelvis with contrast. Radiation optimization: All CT scans at this facility use at least one of these dose optimization techniques: automated exposure control; mA and/or kV adjustment per patient size (includes targeted exams where dose is matched to clinical indication); or iterative reconstruction. Contrast material: [id number]; Contrast volume: 100 ml; Contrast route: INTRAVENOUS (IV); ?? REPORTING DATA: Count of CT and Cardiac NM exams in prior 12 months: This patient has received 4 known CTs and 0 known cardiac nuclear medicine studies in the 12 months prior to the current study. ?? COMPARISON: CT ABD/PELVIS W CONTRAST 03/01/2023 7:34 AM ?? FINDINGS: Lungs: Interstitial prominence and trace basilar airspace disease. Liver: Fatty infiltration of the liver. Gallbladder and bile ducts: Cholelithiasis. Pancreas: No pancreatic mass. Spleen: Punctate calcification in the enlarged spleen measuring 13.9 cm in length. Adrenal glands: Unremarkable adrenals. Kidneys and ureters: Stable 1.6 cm nodular hypodense lesion in the superomedial left kidney. No hydronephrosis. Stomach and bowel: Fluid-filled stomach. Prominent stool, in a pattern suggesting constipation. Diverticula, without pericolonic inflammation. Wall thickening in the nondistended rectum (series 3: Image 145). Appendix: No acute appendicitis. Intraperitoneal space: No significant intraperitoneal fluid. Vasculature: Normal caliber of the abdominal aorta. Pelvic vascular calcifications. Lymph nodes: Subcentimeter lymph nodes. Urinary bladder: Nondistended bladder. Reproductive: Punctate prostate calcification. Bones/joints: Chronic compression deformities in the inferior thoracic spine. Soft tissues: Scrotal calcifications. ?? IMPRESSION: 1. Cholelithiasis. 2. Prominent stool, in a pattern suggesting constipation. 3. Wall thickening in the nondistended rectum (series 3: Image 145). 4. Additional findings as described above. ? THIS DOCUMENT HAS BEEN ELECTRONICALLY SIGNED BY TONNY DOUGHERTY MD on 03/09/2023 12:47 PM ?? Signed By: Tonny Dougherty MD Lab Results CBC and Differential?? LATEST RESULTS?? HISTORICAL RESULTS?? WBC?? 03/09/23 10:52?? 8.1?? 03/01/23?? 7.1?? RBC?? 03/09/23 10:52?? 3.92 ??Low?? 03/01/23?? 3.90 ??Low?? Hgb?? 03/09/23 10:52?? 12.3 ??Low?? 03/01/23?? 12.3 ??Low?? Hct?? 03/09/23 10:52?? 36.0 ??Low?? 03/01/23?? 36.7 ??Low?? MCV?? 03/09/23 10:52?? 91.8?? 03/01/23?? 94.1 ??High?? MCH?? 03/09/23 10:52?? 31.4 ??High?? 03/01/23?? 31.5 ??High?? MCHC?? 03/09/23 10:52?? 34.2?? 03/01/23?? 33.5?? RDW-CV?? 03/09/23 10:52?? 11.9?? 03/01/23?? 12.4?? Platelets?? 03/09/23 10:52?? 315?? 03/01/23?? 237?? MPV?? 03/09/23 10:52?? 10.4?? 03/01/23?? 10.8 ??High?? Neutro Auto?? 03/09/23 10:52?? 53.8?? 03/01/23?? 64.8?? Lymph Auto?? 03/09/23 10:52?? 30.6?? 03/01/23?? 17.9 ??Low?? [place] Auto?? 03/09/23 10:52?? 11.7 ??High?? 03/01/23?? 14.8 ??High?? Eos, Auto?? 03/09/23 10:52?? 2.80?? 03/01/23?? 1.80?? Basophil Auto?? 03/09/23 10:52?? 0.6?? 03/01/23?? 0.6?? Imm Gran Auto?? 03/09/23 10:52?? 0.5?? 03/01/23?? 0.1?? Neutro Absolute?? 03/09/23 10:52?? 4.4?? 03/01/23?? 4.6?? Lymph Absolute?? 03/09/23 10:52?? 2.5?? 03/01/23?? 1.3?? [place] Absolute?? 03/09/23 10:52?? 1.0 ??High?? 03/01/23?? 1.0 ??High?? Eos Absolute?? 03/09/23 10:52?? 0.2?? 03/01/23?? 0.1?? Baso Absolute?? 03/09/23 10:52?? 0.0?? 03/01/23?? 0.0?? Imm Gran Absolute?? 03/09/23 10:52?? 0.04?? 03/01/23?? 0.01?? Slide Review?? 03/09/23 10:52?? Not Indicated?? 02/28/23?? Not Indicated? Routine Chemistry?? LATEST RESULTS?? HISTORICAL RESULTS?? Sodium Level?? 03/09/23 10:52?? 138?? 03/01/23?? 136?? Potassium Level?? 03/09/23 10:52?? 4.0?? 03/01/23?? 3.6?? Chloride Level?? 03/09/23 10:52?? 100?? 03/01/23?? 98?? CO2?? 03/09/23 10:52?? 29?? 03/01/23?? 29?? Alk Phos?? 03/09/23 10:52?? 84?? 03/01/23?? 85?? AST?? 03/09/23 10:52?? 32?? 03/01/23?? 26?? ALT?? 03/09/23 10:52?? 35?? 03/01/23?? 24?? BUN?? 03/09/23 10:52?? 17?? 03/01/23?? 13?? Glucose Level?? 03/09/23 10:52?? 99?? 03/01/23?? 108 ??High?? Creatinine Level?? 03/09/23 10:52?? 1.25 ??High?? 03/01/23?? 1.10?? BUN/Creat Ratio?? 03/09/23 10:52?? 13.6?? 03/01/23?? 11.8?? eGFR CKD-EPI?? 03/09/23 10:52?? 80?? 03/01/23?? 93?? Calcium Level?? 03/09/23 10:52?? 8.5 ??Low?? 03/01/23?? 7.6 ??Low?? Protein Total?? 03/09/23 10:52?? 7.5?? 03/01/23?? 7.4?? Albumin Level?? 03/09/23 10:52?? 3.7?? 03/01/23?? 3.5?? Globulin?? 03/09/23 10:52?? 3.8 ??High?? 03/01/23?? 3.9 ??High?? A/G Ratio?? 03/09/23 10:52?? 1.0?? 03/01/23?? 0.9 ??Low?? Bilirubin Total?? 03/09/23 10:52?? 0.4?? 03/01/23?? 0.3?? Anion Gap?? 03/09/23 10:52?? 9.0?? 03/01/23?? 9.0?? Lipase Level?? 03/09/23 10:52?? 28?? 03/01/23?? 26?? Osmolality?? 03/09/23 10:52?? 277?? 03/01/23?? 273 ??Low? UA Macroscopic?? LATEST RESULTS?? HISTORICAL RESULTS?? Urine Srce?? 03/09/23 10:52?? Clean Catch?? 02/13/23?? Clean Catch?? UA Color?? 03/09/23 10:52?? Lia Abnormal?? 02/13/23?? LIGHT YELL?? UA Appear?? 03/09/23 10:52?? Clear?? 02/13/23?? Clear?? UA Glucose?? 03/09/23 10:52?? Negative?? 02/13/23?? Negative?? UA Bili?? 03/09/23 10:52?? Negative?? 02/13/23?? Negative?? UA Ketones?? 03/09/23 10:52?? Trace Abnormal?? 02/13/23?? Negative?? UA Spec Grav?? 03/09/23 10:52?? 1.025?? 02/13/23?? 1.010?? UA Blood?? 03/09/23 10:52?? Negative?? 02/13/23?? Negative?? UA pH?? 03/09/23 10:52?? 6.50?? 02/13/23?? 7.50?? UA Protein?? 03/09/23 10:52?? Trace Abnormal?? 02/13/23?? Negative?? UA Urobilinogen?? 03/09/23 10:52?? 0.2?? 02/13/23?? 0.2?? UA Nitrite?? 03/09/23 10:52?? Negative?? 02/13/23?? Negative?? UA Leuk Est?? 03/09/23 10:52?? Negative?? 02/13/23?? Negative? Electronically Signed on 03/09/23 05:38 PM [facility] Emergency department Discharge instructions * ANDREW Sequeira: PERFORM Event Display: ED Discharge Information Authored Date: [id number] DESIRE SANCHEZ :1995 Age:27 years Sex:Male Visit Date:03/09/2023 Primary Care Physician: JARRELL HOUSER DO Discharge Instructions We would like to thank you for allowing us to assist you with your healthcare needs. The following includes patient education materials and information regarding your injury/illness. Diagnosis from Today's Visit Cholelithiasis Constipation in male Discharge Vitals Temperature??(Temporal Artery) 96.6 ??F (35.9 ??C) Heart Rate??(Peripheral) 72 Respiratory Rate?? 14 Blood Pressure?? 98/59?? Height?? 70.08 in (178.000 cm) Weight?? 229.98 lb (104.30 kg) BMI?? 33.000 Allergies amoxicillin??(Vomiting symptom) penicillin codeine What to Do Next Instructions from Your Care Team As discussed I do not feel that there is any surgical intervention today.?? You need to clear your colon For this you should utilize MiraLAX 1 capful??daily??up to twice if desired This will allow you to have a healthy bowel movement then you may utilize maintenance as needed You Need to Schedule the Following Appointments Follow Up with??Marlo Urbina MD When:??Within 1 month Why: Follow-up as scheduled, contact the office to see if your surgery may be pushed forward??however as of today there is no need for??intervention from Dr. Urbina Where: [facility] [address] [place] [id number]- Follow Up with??Follow-up with your primary care When:??Within 1 week Why: Follow-up with your primary care as needed, they will be able to reevaluate if necessary Return to ED if concerns Upcoming Scheduled Appointments 2022 11:00 AM EST ?? Where: [facility] Main OR Status: Confirmed You were treated [...] Much When Why Instructions Next Dose Unchanged acetaminophen (acetaminophen 325 [...] by mouth) 2 times a day Unchanged magnesium gluconate (Mag-G) 500 Milligrams 2 times a day Unchanged methadone (methadone 10 mg/ 5 mL oral solution) 110 Milligrams Oral (given by mouth) Every morning Unchanged omeprazole (omeprazole 40 mg oral delayed release capsule) 1 Capsules Oral (given by mouth) Every day Chest pain Shortness of breath Chest pain due to GERD Education Materials Constipation, Adult Constipation is when a person has fewer than three bowel movements in a week, has difficulty havinga bowel movement, or has stools (feces) that are dry, hard, or larger than normal. Constipation maybe caused by an underlying condition. It may become worse with age if a person takes certain medicines and does not take in enough fluids. Follow these instructions at home: Eating and drinking ? Eat foods that have a lot of fiber, such as beans, whole grains, and fresh fruits and vegetables. ? Limit foods that are low in fiber and high in fat and processed sugars, such as fried or sweet foods. These include [place] fries, hamburgers, cookies, candies, and soda. ? Drink enough fluid to keep your urine pale yellow. General instructions ? Exercise regularly or as told by your health care provider. Try to do 150 minutes of moderate exercise each week. ? Use the bathroom when you have the urge to go. Do not hold it in. ? Take [id number] and prescription medicines only as told by your health care provider. This includes any fiber supplements. ? During bowel movements: ? Practice deep breathing while relaxing the lower abdomen. ? Practice pelvic floor relaxation. ? Watch your condition for any changes. Let your health care provider know about them. ? Keep all follow-up visits as told by your health care provider. This is important. Contact a health care provider if: ? You have pain that gets worse. ? You have a fever. ? You do not have a bowel movement after 4 days. ? You vomit. ? You are not hungry or you lose weight. ? You are bleeding from the opening between the buttocks (anus). ? You have thin, pencil-like stools. Get help right away if: ? You have a fever and your symptoms suddenly get worse. ? You leak stool or have blood in your stool. ? Your abdomen is bloated. ? You have severe pain in your abdomen. ? You feel dizzy or you faint. Summary ? Constipation is when a person has fewer than three bowel movements in a week, has difficulty havinga bowel movement, or has stools (feces) that are dry, hard, or larger than normal. ? Eat foods that have a lot of fiber, such as beans, whole grains, and fresh fruits and vegetables. ? Drink enough fluid to keep your urine pale yellow. ? Take urhj-qrf-svajjdk and prescription medicines only as told by your health care provider. This includes any fiber supplements. This information is not intended to replace advice given to you by your health care provider. Make sure you discuss any questions you have with your health care provider. Document Revised: 04/19/2020 Document Reviewed: 04/19/2020 [employer] Patient Education ?? 2022 [employer]. Cholelithiasis Cholelithiasis is a disease in which gallstones form in the gallbladder. The gallbladder is an organ that stores bile. Bile is a fluid that helps to digest fats. Gallstones begin as small crystals and can slowly grow into stones. They may cause no symptoms until they block the gallbladder duct, or cystic duct, when the gallbladder tightens (contracts) after food is eaten. This can cause pain and is known as a gallbladder attack, or biliary colic. There are two main types of gallstones: ? Cholesterol stones. These are the most common type of gallstone. These stones are made of hardened cholesterol and are usually yellow-green in color. Cholesterol is a fat-like substance that is made in the liver. ? Pigment stones. These are dark in color and are made of a red-yellow substance, called bilirubin,that forms when hemoglobin from red blood cells breaks down. What are the causes? This condition may be caused by an imbalance in the different parts that make bile. This can happenif the bile: ? Has too much bilirubin. This can happen in certain blood diseases, such as sickle cell anemia. ? Has too much cholesterol. ? Does not have enough bile salts. These salts help the body absorb and digest fats. In some cases, this condition can also be caused by the gallbladder not emptying completely or often enough. This is common during . What increases the risk? The following factors may make you more likely to develop this condition: ? Being female. ? Having multiple pregnancies. Health care providers sometimes advise removing diseased gallbladders before future pregnancies. ? Eating a diet that is heavy in fried foods, fat, and refined carbohydrates, such as white bread andwhite rice. ? Being obese. ? Being older than age 40. ? Using medicines that contain female hormones (estrogen) for a long time. ? Losing weight quickly. ? Having a family history of gallstones. ? Having certain medical problems, such as: ? Diabetes mellitus. ? Cystic fibrosis. ? Crohn's disease. ? Cirrhosis or other long-term (chronic) liver disease. ? Certain blood diseases, such as sickle cell anemia or leukemia. What are the signs or symptoms? In many cases, having gallstones causes no symptoms. When you have gallstones but do not have symptoms, you have silent gallstones. If a gallstone blocks your bile duct, it can cause a gallbladder attack. The main symptom of a gallbladder attack is sudden pain in the upper right part of the abdomen. The pain: ? Usually comes at night or after eating. ? Can last for one hour or more. ? Can spread to your right shoulder, back, or chest. ? Can feel like indigestion. This is discomfort, burning, or fullness in your upper abdomen. If the bile duct is blocked for more than a few hours, it can cause an infection or inflammation ofyour gallbladder (cholecystitis), liver, or pancreas. This can cause: ? Nausea or vomiting. ? Bloating. ? Pain in your abdomen that lasts for 5 hours or longer. ? Tenderness in your upper abdomen, often in the upper right section and under your rib cage. ? Fever or chills. ? Skin or the white parts of your eyes turning yellow (jaundice). This usually happens when a stone has blocked bile from passing through the common bile duct. ? Dark urine or light-colored stools. How is this diagnosed? This condition may be diagnosed based on: ? A physical exam. ? Your medical history. ? Ultrasound. ? CT scan. ? MRI. You may also have other tests, including: ? Blood tests to check for signs of an infection or inflammation. ? Cholescintigraphy, or HIDA scan. This is a scan of your gallbladder and bile ducts (biliary system)using non-harmful radioactive material and special cameras that can see the radioactive material. ? Endoscopic retrograde cholangiopancreatogram. This involves inserting a small tube with a camera onthe end (endoscope) through your mouth to look at bile ducts and check for blockages. How is this treated? Treatment for this condition depends on the severity of the condition. Silent gallstones do not need treatment. Treatment may be needed if a blockage causes a gallbladder attack or other symptoms. Treatment may include: ? Home care, if symptoms are not severe. ? During a simple gallbladder attack, stop eating and drinking for 12???24 hours (except for water and clear liquids). This helps to cool down your gallbladder. After 1 or 2 days, you can start to eat a diet of simple or clear foods, such as broths and crackers. ? You may also need medicines for pain or nausea or both. ? If you have cholecystitis and an infection, you will need antibiotics. ? A hospital stay, if needed for pain control or for cholecystitis with severe infection. ? Cholecystectomy, or surgery to remove your gallbladder. This is the most common treatment if all other treatments have not worked. ? Medicines to break up gallstones. These are most effective at treating small gallstones. Medicines may be used for up to 6???12 months. ? Endoscopic retrograde cholangiopancreatogram. A small basket can be attached to the endoscope and used to capture and remove gallstones, mainly those that are in the common bile duct. Follow these instructions at home: Medicines ? Take hzvk-qyy-uxyomke and prescription medicines only as told by your health care provider. ? If you were prescribed an antibiotic medicine, take it as told by your health care provider. Do notstop taking the antibiotic even if you start to feel better. ? Ask your health care provider if the medicine prescribed to you requires you to avoid driving or using machinery. Eating and drinking ? Drink enough fluid to keep your urine pale yellow. This is important during a gallbladder attack. Water and clear liquids are preferred. ? Follow a healthy diet. This includes: ? Reducing fatty foods, such as fried food and foods high in cholesterol. ? Reducing refined carbohydrates, such as white bread and white rice. ? Eating more fiber. Aim for foods such as almonds, fruit, and beans. Alcohol use ? If you drink alcohol: ? Limit how much you use to: ? 0???1 drink a day for non women. ? 0???2 drinks a day for men. ? Be aware of how much alcohol is in your drink. In the [place] one drink equals one 12 oz bottle of beer (355 mL), one 5 oz glass of wine (148 mL), or one 1?? oz glass of hard liquor (44 mL). General instructions ? Do not use any products that contain nicotine or tobacco, such as cigarettes, e- cigarettes, and chewing tobacco. If you need help quitting, ask your health care provider. ? Maintain a healthy weight. ? Keep all follow-up visits as told by your health care provider. These may include consultations with a surgeon or specialist. This is important. Where to find more information ? National [place] of Diabetes and Digestive and Kidney Diseases: www.niddk.nih.gov Contact a health care provider if: ? You think you have had a gallbladder attack. ? You have been diagnosed with silent gallstones and you develop pain in your abdomen or indigestion. ? You begin to have attacks more often. ? You have dark urine or light-colored stools. Get help right away if: ? You have pain from a gallbladder attack that lasts for more than 2 hours. ? You have pain in your abdomen that lasts for more than 5 hours or is getting worse. ? You have a fever or chills. ? You have nausea and vomiting that do not go away. ? You develop jaundice. Summary ? Cholelithiasis is a disease in which gallstones form in the gallbladder. ? This condition may be caused by an imbalance in the different parts that make bile. This can happenif your bile has too much bilirubin or cholesterol, or does not have enough bile salts. ? Treatment for gallstones depends on the severity of the condition. Silent gallstones do not need treatment. ? If gallstones cause a gallbladder attack or other symptoms, treatment usually involves not eating or drinking anything. Treatment may also include pain medicines and antibiotics, and it sometimes includes a hospital stay. ? Surgery to remove the gallbladder is common if all other treatments have not worked. This information is not intended to replace advice given to you by your health care provider. Make sure you discuss any questions you have with your health care provider. Document Revised: 04/24/2020 Document Reviewed: 04/24/2020 [employer] Patient Education ?? 2022 [employer] Tests Performed Radiology CT Abdomen and Pelvis w/ Contrast 03/09/2023 12:47 EDT Medications and Immunizations Administered Given Toradol, 15 mg, IV Push Lab Test Name Test Result Date/Time WBC 8.1 K/mcL 03/09/2023 10:52 EDT RBC 3.92 Million/mcL 03/09/2023 10:52 EDT Hgb 12.3 g/dL 03/09/2023 10:52 EDT Hct 36.0 % 03/09/2023 10:52 EDT MCV 91.8 fL 03/09/2023 10:52 EDT MCH 31.4 pg 03/09/2023 10:52 EDT MCHC 34.2 g/dL 03/09/2023 10:52 EDT RDW-CV 11.9 % 03/09/2023 10:52 EDT Platelets 315 K/mcL 03/09/2023 10:52 EDT MPV 10.4 fL 03/09/2023 10:52 EDT Neutro Auto 53.8 % 03/09/2023 10:52 EDT Lymph Auto 30.6 % 03/09/2023 10:52 EDT [place] Auto 11.7 % 03/09/2023 10:52 EDT Eos, Auto 2.80 % 03/09/2023 10:52 EDT Basophil Auto 0.6 % 03/09/2023 10:52 EDT Imm Gran Auto 0.5 % 03/09/2023 10:52 EDT Neutro Absolute 4.4 K/mcL 03/09/2023 10:52 EDT Lymph Absolute 2.5 K/mcL 03/09/2023 10:52 EDT [place] Absolute 1.0 K/mcL 03/09/2023 10:52 EDT Eos Absolute 0.2 K/mcL 03/09/2023 10:52 EDT Baso Absolute 0.0 K/mcL 03/09/2023 10:52 EDT Imm Gran Absolute 0.04 03/09/2023 10:52 EDT Slide Review Not Indicated 03/09/2023 10:52 EDT Sodium Level 138 mmol/L 03/09/2023 10:52 EDT Potassium Level 4.0 mmol/L 03/09/2023 10:52 EDT Chloride Level 100 mmol/L 03/09/2023 10:52 EDT CO2 29 mmol/L 03/09/2023 10:52 EDT Alk Phos 84 IntlUnit/L 03/09/2023 10:52 EDT AST 32 IntlUnit/L 03/09/2023 10:52 EDT ALT 35 IntlUnit/L 03/09/2023 10:52 EDT BUN 17 mg/dL 03/09/2023 10:52 EDT Glucose Level 99 mg/dL 03/09/2023 10:52 EDT Creatinine Level 1.25 mg/dL 03/09/2023 10:52 EDT BUN/Creat Ratio 13.6 03/09/2023 10:52 EDT eGFR CKD-EPI 80 mL/min/1.73 m2 03/09/2023 10:52 EDT Calcium Level 8.5 mg/dL 03/09/2023 10:52 EDT Protein Total 7.5 g/dL 03/09/2023 10:52 EDT Albumin Level 3.7 g/dL 03/09/2023 10:52 EDT Globulin 3.8 g/dL 03/09/2023 10:52 EDT A/G Ratio 1.0 g/dL 03/09/2023 10:52 EDT Bilirubin Total 0.4 mg/dL 03/09/2023 10:52 EDT Anion Gap 9.0 03/09/2023 10:52 EDT Lipase Level 28 unit/L 03/09/2023 10:52 EDT Osmolality 277 mOsm/kg 03/09/2023 10:52 EDT Urine Srce Clean Catch 03/09/2023 10:52 EDT UA Color AmberCAPS 03/09/2023 10:52 EDT UA Appear CLEAR. 03/09/2023 10:52 EDT UA Glucose NEGATIVE 03/09/2023 10:52 EDT UA Bili NEGATIVE 03/09/2023 10:52 EDT UA Ketones TRACE 03/09/2023 10:52 EDT UA Spec Grav 1.025 03/09/2023 10:52 EDT UA Blood NEGATIVE 03/09/2023 10:52 EDT UA pH 6.50 03/09/2023 10:52 EDT UA Protein TRACE 03/09/2023 10:52 EDT UA Urobilinogen 0.2 03/09/2023 10:52 EDT UA Nitrite NEGATIVE 03/09/2023 10:52 EDT UA Leuk Est NEGATIVE 03/09/2023 10:52 EDT Patient/Theater Technician Signature Patient Name:DESIRE SANCHEZ DECLAN I have received this information and my questions have been answered. Patient/Theater Technician Name: Patient/Theater Technician Signature: Relationship to Patient: Witness Name/Signature: Date: Electronically Signed on: 03/09/2023 13:23 EDTSigned by: Patient Care team information Care Team Personnel Name: JARRELL HOUSER DO Position: No Access Member Role: Primary Care Physician Address: Address: [address] [address] Name: ANDREW Sequeira Position: Physician Member Role: Physician Sales Assistant Address: Address: [address] [place] [phone] Name: Jodi Patino Position: Nurse Member Role: Registered Nurse Care Team Related Persons Name: ARY SANCHEZ Name: MILLER SANCHEZ
--- OUTSIDE RECORDS SUMMARY | 2023-05-14 12:34 | XMS_ITS | Continuity of Care Document ---
Author Name Unknown Organization [facility] Address [address] [place] [id number] Care Team Providers Care Financial Aid Manager Name Role Phone JARRELL HOUSER DO Primary Care Physician Encounter [facility]TT[facility] FIN NBR [id number] Date(s): 03/21/23 - 03/21/23 [facility] [address] [place] [address]- [place] Encounter Diagnosis COVID-19(Discharge Diagnosis) - 03/21/23 Vomiting(Discharge Diagnosis) - 03/21/23 Discharge Disposition: Home or Self Care Attending Physician: Mp Knott MD Admitting Physician: Mp Knott MD Referring Physician: Mp Knott MD Allergies, Adverse Reactions, [...] Daily, # 30 cap, 0 Refill(s), Pharmacy: [id number], 178, cm, 02/28/23 14:26:00 EDT, Height/Length Dosing, 104, kg, 02/28/23 14:26:00 EDT, Weight Dosing Start Date: 02/28/23 Status: Ordered ondansetron 4 mg oral tablet, disintegrating 4 mg = 1 tab, Oral, every 8 hr, PRN as needed for nausea/vomiting, # 8 tab, 0 Refill(s), 03/25/23 2:08:00 PM CDT, Pharmacy: [id number], 178, cm, 03/21/23 13:04:00 EDT, Height/Length Dosing, 104, kg, 03/21/23 13:04:00 EDT, Weight Dosing Start Date: 03/21/23 Stop Date: 03/25/23 Status: Ordered Tums 500 mg oral tablet, chewable 500 mg = 1 tab, Chewed, BID, # 60 tab, 0 Refill(s) Start Date: 09/22/22 Status: Ordered Mental Status 03/21/23 Eye Opening Response [place] Spontaneous ly Best Verbal Response [place] Oriented Best Motor Response [place] Obeys comman ds [place] Coma Score 15 Problem List Condition Confirmation [...] Parathyroid Completed Results Laboratory List Name Date CBC w/ Diff 03/21/23 Comprehensive Metabolic Panel 03/21/23 Automated Diff 03/21/23 Most recent to oldest [Reference Range]: 1 WBC [4.8-10.8 K/mcL] 6.7 K/mcL (03/21/23 1:48 PM) RBC [4.20-6.10 Million/mcL] 3.73 Million /mcL *LOW* (03/21/23 1:48 PM) Neutro Auto [42.2-75.2 %] 76.2 % *HI* (03/21/23 1:48 PM) Lymph Auto [20.5-51.1 %] 7.7 % *LOW* (03/21/23 1:48 PM) [facility] Auto [1.7-9.3 %] 14.1 % *HI* (03/21/23 1:48 PM) Basophil Auto [0.0-0.8 %] 0.3 % (03/21/23 1:48 PM) BUN [8-26 mg/dL] 17 mg/dL (03/21/23 1:48 PM) Glucose Level [74-106 mg/dL] 107 mg/dL *HI* (03/21/23 1:48 PM) Potassium Level [3.5-5.1 mmol/L] 4.0 mmo l/L (03/21/23 1:48 PM) Baso Absolute [0.0-0.2 K/mcL] 0.0 K/mcL (03/21/23 1:48 PM) MCV [80.0-94.0 fL] 94.1 fL *HI* (03/21/23 1:48 PM) AST [15-41 IntlUnit/L] 44 IntlUnit/L *HI* (03/21/23 1:48 PM) ALT [17-63 IntlUnit/L] 55 IntlUnit/L (03/21/23 1:48 PM) MCHC [32.0-36.0 g/dL] 33.3 g/dL (03/21/23 1:48 PM) Osmolality [275-295 mOsm/kg] 278 mOsm/kg (03/21/23 1:48 PM) Sodium Level [134-143 mmol/L] 138 mmol/L (03/21/23 1:48 PM) Lymph Absolute [1.2-3.4 K/mcL] 0.5 K/mcL *LOW* (03/21/23 1:48 PM) Hct [42.0-52.0 %] 35.1 % *LOW* (03/21/23 1:48 PM) Calcium Level [8.9-10.3 mg/dL] 9.2 mg/dL (03/21/23 1:48 PM) [facility] Absolute [0.1-0.6 K/mcL] 1.0 K/mcL *HI* (03/21/23 1:48 PM) Albumin Level [3.5-5.0 g/dL] 3.5 g/dL (03/21/23 1:48 PM) Protein Total [6.5-8.1 g/dL] 7.4 g/dL (03/21/23 1:48 PM) MCH [27.0-31.0 pg] 31.4 pg *HI* (03/21/23 1:48 PM) Neutro Absolute [1.4-6.5 K/mcL] 5.1 K/mc L (03/21/23 1:48 PM) Bilirubin Total [0.2-1.2 mg/dL] 0.6 mg/d L (03/21/23 1:48 PM) Hgb [14.0-18.0 g/dL] 11.7 g/dL *LOW* (03/21/23 1:48 PM) Alk Phos [38-130 IntlUnit/L] 90 IntlUnit /L (03/21/23 1:48 PM) MPV [7.4-10.4 fL] 10.7 fL *HI* (03/21/23 1:48 PM) Platelets [130-400 K/mcL] 233 K/mcL (03/21/23 1:48 PM) CO2 [22-32 mmol/L] 28 mmol/L (03/21/23 1:48 PM) Eos Absolute [0.0-0.2 K/mcL] 0.1 K/mcL (03/21/23 1:48 PM) Chloride Level [98-111 mmol/L] 98 mmol/L (03/21/23 1:48 PM) RDW-CV [11.5-14.5 %] 12.1 % (03/21/23 1:48 PM) A/G Ratio [1.0-2.5 g/dL] 0.9 g/dL *LOW* (03/21/23 1:48 PM) BUN/Creat Ratio [8.0-20.0] 14.2 (03/21/23 1:48 PM) Globulin [2.3-3.5 g/dL] 3.9 g/dL *HI* (03/21/23 1:48 PM) Imm Gran Absolute [0.00-0.02 K/mcL] 0.03 K/mcL *HI* (03/21/23 1:48 PM) Imm Gran Auto [0.0-0.5 %] 0.4 % (03/21/23 1:48 PM) Slide Review Not Indicated (03/21/23 1:48 PM) Creatinine Level [0.61-1.24 mg/dL] 1.20 mg/dL (03/21/23 1:48 PM) Anion Gap [3.0-12.0] 12.0 (03/21/23 1:48 PM) Eos, Auto [0.00-3.00 %] 1.30 % (03/21/23 1:48 PM) eGFR CKD-EPI [>=60 mL/min/1.73 m2] 84 mL /min/1.73 m2 (03/21/23 1:48 PM) Vital Signs Most recent to oldest [Reference Range]: 1 2 3 Temperature Oral [35.8-37.3 Deg C] 37.2 Deg C (03/21/23 12:49 PM) Peripheral Pulse Rate [60-100 bpm] 61 bpm (03/21/23 3:11 PM) 83 bpm (03/21/23 2:37 PM) 77 bpm (03/21/23 1:37 PM) Respiratory Rate [12-24 br/min] 18 br/min (03/21/23 12:49 PM) Blood Pressure [90-140/60-90 mmHg] 109/64mmHg (03/21/23 3:11 PM) 113/69mmHg (03/21/23 2:37 PM) 123/77mmHg (03/21/23 1:37 PM) Mean Arterial Pressure Cuff 78 mmHg (03/21/23 3:11 PM) 82 mmHg (03/21/23 2:37 PM) 91 mmHg (03/21/23 1:37 PM) Weight Dosing 104.00 kg (03/21/23 1:04 PM) Weight Estimated 104.00 kg (03/21/23 12:49 PM) Height/Length Dosing 178.000 cm (03/21/23 1:04 PM) Height/Length Estimated 178.000 cm (03/21/23 12:49 PM) Social History Social History Type Response Tobacco Never tobacco user T obacco Use:. Sex Hospital Discharge Instructions Patient Education 03/21/2023 14:09:02 Nausea and Vomiting, Adult Nausea and Vomiting, Adult Nausea is the feeling that you have an upset stomach or that you are about to vomit. As nausea getsworse, it can lead to vomiting. Vomiting is when stomach contents forcefully come out of your mouthas a result of nausea. Vomiting can make you feel weak and cause you to become dehydrated. Dehydration can make you feel tired and thirsty, cause you to have a dry mouth, and decrease how often you urinate. Older adults and people with other diseases or a weak disease-fighting system (immune system) are at higher risk for dehydration. It is important to treat your nausea and vomiting as told by your health care provider. Follow these instructions at home: Watch your symptoms for any changes. Tell your health care provider about them. Eating and drinking ??? Take an oral rehydration solution (ORS). This is a drink that is sold at pharmacies and retail stores. ??? Drink clear fluids slowly and in small amounts as you are able. Clear fluids include water, icechips, low-calorie sports drinks, and fruit juice that has water added (diluted fruit juice). ??? Eat bland, gcsw-sv-etfphv foods in small amounts as you are able. These foods include bananas, applesauce, rice, lean meats, toast, and crackers. ??? Avoid fluids that contain a lot of sugar or caffeine, such as energy drinks, sports drinks, andsoda. ??? Avoid alcohol. ??? Avoid spicy or fatty foods. General instructions ??? Take dpuu-yjr-dmiqewj and prescription medicines only as told by your health care provider. ??? Drink enough fluid to keep your urine pale yellow. ??? Wash your hands often using soap and water for at least 20 seconds. If soap and water are not available, use hand senior tableau developer. ??? Make sure that everyone in your household washes their hands well and often. ??? Rest at home while you recover. ??? Watch your condition for any changes. ??? Take slow and deep breaths when you feel nauseous. ??? Keep all follow-up visits. This is important. Contact a health care provider if: ??? Your symptoms get worse. ??? You have new symptoms. ??? You have a fever. ??? You cannot drink fluids without vomiting. ??? Your nausea does not go away after 2 days. ??? You feel light-headed or dizzy. ??? You have a headache. ??? You have muscle cramps. ??? You have a rash. ??? You have pain while urinating. Get help right away if: ??? You have pain in your chest, neck, arm, or jaw. ??? You feel extremely weak or you faint. ??? You have persistent vomiting. ??? You have vomit that is bright red or looks like black coffee grounds. ??? You have bloody or black stools (feces) or stools that look like tar. ??? You have a severe headache, a stiff neck, or both. ??? You have severe pain, cramping, or bloating in your abdomen. ??? You have difficulty breathing, or you are breathing very quickly. ??? Your heart is beating very quickly. ??? Your skin feels cold and clammy. ??? You feel confused. ??? You have signs of dehydration, such as: ??? Dark urine, very little urine, or no urine. ??? Cracked lips. ??? Dry mouth. ??? Sunken eyes. ??? Sleepiness. ??? Weakness. These symptoms may be an emergency. Get help right away. Call 911. ??? Do not wait to see if the symptoms will go away. ??? Do not drive yourself to the hospital. Summary ??? Nausea is the feeling that you have an upset stomach or that you are about to vomit. As nausea gets worse, it can lead to vomiting. Vomiting can make you feel weak and cause you to become dehydrated. ??? Follow instructions from your health care provider about eating and drinking to prevent dehydration. ??? Take vqax-ztg-hnwjgcy and prescription medicines only as told by your health care provider. ??? Contact your health care provider if your symptoms get worse, or you have new symptoms. ??? Keep all follow-up visits. This is important. This information is not intended to replace advice given to you by your health care provider. Make sure you discuss any questions you have with your health care provider. Document Revised: 12/07/2021 Document Reviewed: 12/07/2021 [employer] Patient Education ?? 2022 [employer]. 03/21/2023 14:08:59 COVID-19 COVID-19 COVID-19, or coronavirus disease 2019, is an infection that is caused by a new (novel) coronavirus called SARS-CoV-2. COVID-19 can cause many symptoms. In some people, the virus may not cause any symptoms. In others, it may cause mild or severe symptoms. Some people with severe infection develop severe disease. What are the causes? This illness is caused by a virus. The virus may be in the air as tiny specks of fluid (aerosols) or droplets, or it may be on surfaces. You may catch the virus by: ??? Breathing in droplets from an infected person. Droplets can be spread by a person breathing, speaking, singing, coughing, or sneezing. ??? Touching something, like a table or a doorknob, that has virus on it (is contaminated) and thentouching your mouth, nose, or eyes. What increases the risk? Risk for infection: You are more likely to get infected with the COVID-19 virus if: ??? You are within 6 ft (1.8 m) of a person with COVID-19 for 15 minutes or longer. ??? You are providing care for a person who is infected with COVID-19. ??? You are in close personal contact with other people. Close personal contact includes hugging, kissing, or sharing eating or drinking utensils. Risk for serious illness caused by COVID-19: You are more likely to get seriously ill from the COVID-19 virus if: ??? You have cancer. ??? You have a long-term (chronic) disease, such as: ??? Chronic lung disease. This includes pulmonary embolism, chronic obstructive pulmonary disease, and cystic fibrosis. ??? Long-term disease that lowers your body's ability to fight infection (immunocompromise). ??? Serious cardiac conditions, such as heart failure, coronary artery disease, or cardiomyopathy. ??? Diabetes. ??? Chronic kidney disease. ??? Liver diseases. These include cirrhosis, nonalcoholic fatty liver disease, alcoholic liver disease, or autoimmune hepatitis. ??? You have obesity. ??? You are or were recently . ??? You have sickle cell disease. What are the signs or symptoms? Symptoms of this condition can range from mild to severe. Symptoms may appear any time from 2 to 14days after being exposed to the virus. They include: ??? Fever or chills. ??? Shortness of breath or trouble breathing. ??? Feeling tired or very tired. ??? Headaches, body aches, or muscle aches. ??? Runny or stuffy nose, sneezing, coughing, or sore throat. ??? New loss of taste or smell. This is rare. Some people may also have stomach problems, such as nausea, vomiting, or diarrhea. Other people may not have any symptoms of COVID-19. How is this diagnosed? This condition may be diagnosed by testing samples to check for the COVID-19 virus. The most commontests are the PCR test and the antigen test. Tests may be done in the lab or at home. They include: ??? Using a swab to take a sample of fluid from the back of your nose and throat (nasopharyngeal fluid), from your nose, or from your throat. ??? Testing a sample of saliva from your mouth. ??? Testing a sample of coughed-up mucus from your lungs (sputum). How is this treated? Treatment for COVID-19 infection depends on the severity of the condition. ??? Mild symptoms can be managed at home with rest, fluids, and ofqb-gry-vypfohs medicines. ??? Serious symptoms may be treated in a hospital intensive care unit (ICU). Treatment in the ICU may include: ??? Supplemental oxygen. Extra oxygen is given through a tube in the nose, a face mask, or a diaz. ??? Medicines. These may include: ??? Antivirals, such as monoclonal antibodies. These help your body fight off certain viruses that can cause disease. ??? Anti-inflammatories, such as corticosteroids. These reduce inflammation and suppress the immunesystem. ??? Antithrombotics. These prevent or treat blood clots, if they develop. ??? Convalescent plasma. This helps boost your immune system, if you have an underlying immunosuppressive condition or are getting immunosuppressive treatments. ??? Prone positioning. This means you will lie on your stomach. This helps oxygen to get into your lungs. ??? Infection control measures. If you are at risk for more serious illness caused by COVID-19, your health care provider may prescribe two long-acting monoclonal antibodies, given together every 6 months. How is this prevented? To protect yourself: ??? Use preventive medicine (pre-exposure prophylaxis). You may get pre-exposure prophylaxis if youhave moderate or severe immunocompromise. ??? Get vaccinated. Anyone 6 months old or older who meets guidelines can get a COVID-19 vaccine orvaccine series. This includes people who are or making breast milk (lactating). ??? Get an added dose of COVID-19 vaccine after your first vaccine or vaccine series if you have moderate to severe immunocompromise. This applies if you have had a solid organ transplant or have been diagnosed with an immunocompromising condition. ??? You should get the added dose 4 weeks after you got the first COVID-19 vaccine or vaccine series. ??? If you get an mRNA vaccine, you will need a 3-dose primary series. ? ? If you get the J&J/Albertina vaccine, you will need a 2-dose primary series, with the second dose being an mRNA vaccine. ??? Talk to your health care provider about getting experimental monoclonal antibodies. This treatment is approved under emergency use authorization to prevent severe illness before or after being exposed to the COVID-19 virus. You may be given monoclonal antibodies if: ??? You have moderate or severe immunocompromise. This includes treatments that lower your immune response. People with immunocompromise may not develop protection against COVID-19 when they are vaccinated. ??? You cannot be vaccinated. You may not get a vaccine if you have a severe allergic reaction to the vaccine or its components. ??? You are not fully vaccinated. ??? You are in a facility where COVID-19 is present and: ??? Are in close contact with a person who is infected with the COVID-19 virus. ??? Are at high risk of being exposed to the COVID-19 virus. ??? You are at risk of illness from new variants of the COVID-19 virus. To protect others: If you have symptoms of COVID-19, take steps to prevent the virus from spreading to others. ??? Stay home. Leave your house only to get medical care. Do not use public transit, if possible. ??? Do not travel while you are sick. ??? Wash your hands often with soap and water for at least 20 seconds. If soap and water are not available, use alcohol-based hand senior tableau developer. ??? Make sure that all people in your household wash their hands well and often. ??? Cough or sneeze into a tissue or your sleeve or elbow. Do not cough or sneeze into your hand orinto the air. Where to find more information ??? Centers for Disease Control and Prevention: www.cdc.gov/coronavirus ??? World Health Organization: www.who.int/health-topics/coronavirus Get help right away if: ??? You have trouble breathing. ??? You have pain or pressure in your chest. ??? You are confused. ??? You have bluish lips and fingernails. ??? You have trouble waking from sleep. ??? You have symptoms that get worse. These symptoms may be an emergency. Get help right away. Call 911. ??? Do not wait to see if the symptoms will go away. ??? Do not drive yourself to the hospital. Summary ??? COVID-19 is an infection that is caused by a new coronavirus. ??? Sometimes, there are no symptoms. Other times, symptoms range from mild to severe. Some people with a severe COVID-19 infection develop severe disease. ??? The virus that causes COVID-19 can spread from person to person through droplets or aerosols from breathing, speaking, singing, coughing, or sneezing. ??? Mild symptoms of COVID-19 can be managed at home with rest, fluids, and sepg-loj-ziofump medicines. This information is not intended to replace advice given to you by your health care provider. Make sure you discuss any questions you have with your health care provider. Document Revised: 05/23/2022 Document Reviewed: 05/23/2022 [employer] Patient Education ?? 2022 [employer]. Follow Up Care 03/21/2023 12:49:06 With:JARRELL HOUSER DO Address: [facility] [address] [place] [id number]- When:1 to 2 weeks only if needed Physician Emergency department Note * Cj Allan MD: PERFORM Event Display: ED Note Physician Authored Date: [id number] PEDRO PABLO SANCHEZ :1995 Age:27 years Sex:Male Visit Date:03/21/2023 Primary Care Physician: JARRELL HOUSER DO Basic Information Time Seen: Cj Allan MD / 03/21/2023 13:23 Chief Complaint began with body aches, vomiting, and SOB yesterday, Dx with COVID last night at [facility]. Not given any meds/ Comes in today with worsening symptoms. No tyloenol or motrin today History Of Present Illness: 27-year-old male??well-known to this emergency department with??8 visits previously since??early February??for various complaints presents with repetitive vomiting, at least 10 times over the past 12 to 24 hours??associated with a new testing positive for COVID-19. ??No significant respiratory comp laints. ??No documented fever. ??Feels difficulty breathing and short of breath but saturations in the high 90s on room air with respiration rates in the teens.?? But overall has aches pains malaise. Review of Systems: no syncope Gastrointestinal:??No diarrhea, constipation Genitourinary:??No hematuria, or other concerning urinary symptoms Integumentary:??No rash, pruritus, or significant skin complaints Neurologic:??Alert, grossly oriented, no focal neurological complaints, able to give a history and consents to examination Physical Exam Vitals & Measurements T:??37.2?C ??(Oral)?? HR:??61??(Peripheral)?? RR:??18?? BP:??109/64?? SpO2:??93%?? HT:??178.000??cm?? WT:??104.00??kg??(Estimated)?? Pain Score:??8?? Physical exam reveals an alert interactive male. ??Head neck exam is unremarkable. ??He has saliva in his mouth. ??His oropharynx is glistening.?? The??neck is supple. ??There is no adenopathy or JVD. His chest is clear without wheezes or crackles.?? Vesicular breath sounds. ??Heart sounds are regular without murmur or extra sound. ??No tachycardia.?? Abdomen is soft and nontender??without reboundor percussion tenderness.?? Describes mild tenderness??vaguely throughout. ??Active bowel sounds. ??No organomegaly or masses.?? Extremities without edema. ??No rash. Medical Decision Making: COVID-19 without signs of??complications, hypoxia,??or anything beyond subjective difficulties. ??Oxygen saturations ranged from 93 to 96% on room air with respirations??unlabored in the teens.?? No fever in the ED.?? Tolerating some fluids in the ED.?? I do not feel??appropriate indications for anti- COVID??medications at this time.?? Somewhat vague history in regards to onset of symptoms. Procedure No Qualifying Data Reexamination/Reevaluation Patient was reevaluated prior to discharge.?? He was stable throughout discharge.?? His vital signs??were monitored. ??His oxygen saturations??with reassessment prior to discharge??and vital signs were unremarkable with a pulse of 61??saturations 93 to 95% and blood pressure 109/64 at this time of d ictation??prior to being prepared for discharge. Assessment/Plan 1.??COVID-19??U07.1 Tested positive at home yesterday. ??Discussed the importance of isolation for 5 days and additional 5 days of masking.?? Relatively low risk recomplications.?? He will check oxygen saturations.?? Hewill return for low oxygen saturations. 2.??Vomiting??R11.10 Repetitive. ??States nothing in for over 24 hours and 10 episodes of vomiting but hydration status clinically??appears reasonable. ??Given a liter of saline and ondansetron. ??Was not observed to vomit in the emergency department.?? Ondansetron upon prescribed.?? Follow-up primary care not improving.?? Orders: ondansetron 4 mg oral tablet, disintegrating, 4 mg = 1 tab, Oral, every 8 hr, PRN as needed for nausea/vomiting, # 8 tab, 0 Refill(s), 03/25/23 15:08:00 EDT, Pharmacy: [id number], 178, cm, 03/21/23 13:04:00 EDT, Height/Length Dosing, 104, kg, 03/21/23 13:04:00 EDT, Weight Dosing Normal Saline Flush, 10 mL, IV Flush, Injection, As Directed, PRN belt line feeder, First Dose: 03/21/23 13:32:00 EDT, Routine Discharge Patient, 03/21/23 15:10:00 EDT Peripheral IV Insertion, 03/21/23 13:32:00 EDT Vital Signs, 03/21/23 13:32:00 EDT, Once, Stop date 03/21/23 13:32:00 EDT, Q15min until stable and SBP greater than 90, then Q1hour Patient Education Nausea and Vomiting, Adult COVID-19 Follow Up With When Contact Information CORRINA AVILA, JARRELL MEYER Within 1 to 2 weeks, only if needed [facility] [address] [place] [id number]- Additional Instructions: Medication Reconciliation New Prescription ondansetron (ondansetron 4 mg oral tablet, disintegrating)1 tab Oral (given by mouth) every 8 hoursas needed as needed for nausea/vomiting. Refills: 0. ?? Unchanged acetaminophen (acetaminophen 325 mg oral capsule)1 [...] abuse Procedure/Surgical History ???Parathyroid Medication Administration Given Sodium Chloride 0.9%, 1000 mL, Hydration Bolus acetaminophen, 1000 mg, IV Piggyback ondansetron, 4 mg, IV Push Allergies amoxicillin??(Vomiting symptom) penicillin [...] and Differential?? LATEST RESULTS?? HISTORICAL RESULTS?? WBC?? 03/21/23 13:48?? 6.7?? 03/09/23?? 8.1?? RBC?? 03/21/23 13:48?? 3.73 ??Low?? 03/09/23?? 3.92 ??Low?? Hgb?? 03/21/23 13:48?? 11.7 ??Low?? 03/09/23?? 12.3 ??Low?? Hct?? 03/21/23 13:48?? 35.1 ??Low?? 03/09/23?? 36.0 ??Low?? MCV?? 03/21/23 13:48?? 94.1 ??High?? 03/09/23?? 91.8?? MCH?? 03/21/23 13:48?? 31.4 ??High?? 03/09/23?? 31.4 ??High?? MCHC?? 03/21/23 13:48?? 33.3?? 03/09/23?? 34.2?? RDW-CV?? 03/21/23 13:48?? 12.1?? 03/09/23?? 11.9?? Platelets?? 03/21/23 13:48?? 233?? 03/09/23?? 315?? MPV?? 03/21/23 13:48?? 10.7 ??High?? 03/09/23?? 10.4?? Neutro Auto?? 03/21/23 13:48?? 76.2 ??High?? 03/09/23?? 53.8?? Lymph Auto?? 03/21/23 13:48?? 7.7 ??Low?? 03/09/23?? 30.6?? [facility] Auto?? 03/21/23 13:48?? 14.1 ??High?? 03/09/23?? 11.7 ??High?? Eos, Auto?? 03/21/23 13:48?? 1.30?? 03/09/23?? 2.80?? Basophil Auto?? 03/21/23 13:48?? 0.3?? 03/09/23?? 0.6?? Imm Gran Auto?? 03/21/23 13:48?? 0.4?? 03/09/23?? 0.5?? Neutro Absolute?? 03/21/23 13:48?? 5.1?? 03/09/23?? 4.4?? Lymph Absolute?? 03/21/23 13:48?? 0.5 ??Low?? 03/09/23?? 2.5?? [facility] Absolute?? 03/21/23 13:48?? 1.0 ??High?? 03/09/23?? 1.0 ??High?? Eos Absolute?? 03/21/23 13:48?? 0.1?? 03/09/23?? 0.2?? Baso Absolute?? 03/21/23 13:48?? 0.0?? 03/09/23?? 0.0?? Imm Gran Absolute?? 03/21/23 13:48?? 0.03 ??High?? 03/09/23?? 0.04?? Slide Review?? 03/21/23 13:48?? Not Indicated?? 03/09/23?? Not Indicated? Routine Chemistry?? LATEST RESULTS?? HISTORICAL RESULTS?? Sodium Level?? 03/21/23 13:48?? 138?? 03/09/23?? 138?? Potassium Level?? 03/21/23 13:48?? 4.0?? 03/09/23?? 4.0?? Chloride Level?? 03/21/23 13:48?? 98?? 03/09/23?? 100?? CO2?? 03/21/23 13:48?? 28?? 03/09/23?? 29?? Alk Phos?? 03/21/23 13:48?? 90?? 03/09/23?? 84?? AST?? 03/21/23 13:48?? 44 ??High?? 03/09/23?? 32?? ALT?? 03/21/23 13:48?? 55?? 03/09/23?? 35?? BUN?? 03/21/23 13:48?? 17?? 03/09/23?? 17?? Glucose Level?? 03/21/23 13:48?? 107 ??High?? 03/09/23?? 99?? Creatinine Level?? 03/21/23 13:48?? 1.20?? 03/09/23?? 1.25 ??High?? BUN/Creat Ratio?? 03/21/23 13:48?? 14.2?? 03/09/23?? 13.6?? eGFR CKD-EPI?? 03/21/23 13:48?? 84?? 03/09/23?? 80?? Calcium Level?? 03/21/23 13:48?? 9.2?? 03/09/23?? 8.5 ??Low?? Protein Total?? 03/21/23 13:48?? 7.4?? 03/09/23?? 7.5?? Albumin Level?? 03/21/23 13:48?? 3.5?? 03/09/23?? 3.7?? Globulin?? 03/21/23 13:48?? 3.9 ??High?? 03/09/23?? 3.8 ??High?? A/G Ratio?? 03/21/23 13:48?? 0.9 ??Low?? 03/09/23?? 1.0?? Bilirubin Total?? 03/21/23 13:48?? 0.6?? 03/09/23?? 0.4?? Anion Gap?? 03/21/23 13:48?? 12.0?? 03/09/23?? 9.0?? Osmolality?? 03/21/23 13:48?? 278?? 03/09/23?? 277? Electronically Signed on 03/21/23 03:15 PM Cj Allan MD Emergency department Discharge instructions * Cj Allan MD: PERFORM Event Display: ED Discharge Information Authored Date: [id number] LAURA PEDRO PABLO DECLAN :1995 Age:27 years Sex:Male Visit Date:03/21/2023 Primary Care Physician: JARRELL HOUSER DO Discharge Instructions We would like to thank you for allowing us to assist you with your healthcare needs. The following includes patient education materials and information regarding your injury/illness. Diagnosis from Today's Visit COVID-19 Vomiting Discharge Vitals Temperature??(Oral) 99.0 ??F (37.2 ??C) Heart Rate??(Peripheral) 83 Respiratory Rate?? 18 Blood Pressure?? 113/69?? Height?? 70.08 in (178.000 cm) Weight??(Estimated) 229.32 lb (104.00 kg) Allergies amoxicillin??(Vomiting symptom) penicillin codeine What to Do Next Instructions from Your Care Team Pedro Pablo:??Work on hydrating well by increasing your fluids and small amounts. ??Use the ondansetron to prevent vomiting.?? Keep isolated??for 5 days and wear a mask for another 5 days to prevent COVID transmission. You Need to Schedule the Following Appointments Follow Up with??CORRINA AVILA, JARRELL MEYER When:??Within 1 to 2 weeks, only if needed Where: [facility] [address] [place] [id number]- Upcoming Scheduled Appointments 2022 9:30 AM EDT ?? Where: [facility] Main OR Status: Confirmed You were treated [...] How Much When Why Instructions Next Dose New ondansetron (ondansetron 4 mg oral tablet, disintegrating) 1 tab Oral (given by mouth) Every 8 hours as needed for as needed for nausea/vomiting Pickup at [facility] Unchanged acetaminophen (acetaminophen 325 mg oral capsule) [...] of breath Chest pain due to GERD Pharmacy Information [facility]: [address] [place], [place] [phone] Education Materials Nausea and Vomiting, Adult Nausea is the feeling that you have an upset stomach or that you are about to vomit. As nausea getsworse, it can lead to vomiting. Vomiting is when stomach contents forcefully come out of your mouthas a result of nausea. Vomiting can make you feel weak and cause you to become dehydrated. Dehydration can make you feel tired and thirsty, cause you to have a dry mouth, and decrease how often you urinate. Older adults and people with other diseases or a weak disease-fighting system (immune system) are at higher risk for dehydration. It is important to treat your nausea and vomiting as told by your health care provider. Follow these instructions at home: Watch your symptoms for any changes. Tell your health care provider about them. Eating and drinking ? Take an oral rehydration solution (ORS). This is a drink that is sold at pharmacies and retail stores. ? Drink clear fluids slowly and in small amounts as you are able. Clear fluids include water, ice chips, low-calorie sports drinks, and fruit juice that has water added (diluted fruit juice). ? Eat bland, dgwv-kh-obeplj foods in small amounts as you are able. These foods include bananas, applesauce, rice, lean meats, toast, and crackers. ? Avoid fluids that contain a lot of sugar or caffeine, such as energy drinks, sports drinks, and soda. ? Avoid alcohol. ? Avoid spicy or fatty foods. General instructions ? Take ksxo-ztg-drrrhjx and prescription medicines only as told by your health care provider. ? Drink enough fluid to keep your urine pale yellow. ? Wash your hands often using soap and water for at least 20 seconds. If soap and water are not available, use hand senior tableau developer. ? Make sure that everyone in your household washes their hands well and often. ? Rest at home while you recover. ? Watch your condition for any changes. ? Take slow and deep breaths when you feel nauseous. ? Keep all follow-up visits. This is important. Contact a health care provider if: ? Your symptoms get worse. ? You have new symptoms. ? You have a fever. ? You cannot drink fluids without vomiting. ? Your nausea does not go away after 2 days. ? You feel light-headed or dizzy. ? You have a headache. ? You have muscle cramps. ? You have a rash. ? You have pain while urinating. Get help right away if: ? You have pain in your chest, neck, arm, or jaw. ? You feel extremely weak or you faint. ? You have persistent vomiting. ? You have vomit that is bright red or looks like black coffee grounds. ? You have bloody or black stools (feces) or stools that look like tar. ? You have a severe headache, a stiff neck, or both. ? You have severe pain, cramping, or bloating in your abdomen. ? You have difficulty breathing, or you are breathing very quickly. ? Your heart is beating very quickly. ? Your skin feels cold and clammy. ? You feel confused. ? You have signs of dehydration, such as: ? Dark urine, very little urine, or no urine. ? Cracked lips. ? Dry mouth. ? Sunken eyes. ? Sleepiness. ? Weakness. These symptoms may be an emergency. Get help right away. Call 911. ? Do not wait to see if the symptoms will go away. ? Do not drive yourself to the hospital. Summary ? Nausea is the feeling that you have an upset stomach or that you are about to vomit. As nausea getsworse, it can lead to vomiting. Vomiting can make you feel weak and cause you to become dehydrated. ? Follow instructions from your health care provider about eating and drinking to prevent dehydration. ? Take xhoc-srh-qcacbwl and prescription medicines only as told by your health care provider. ? Contact your health care provider if your symptoms get worse, or you have new symptoms. ? Keep all follow-up visits. This is important. This information is not intended to replace advice given to you by your health care provider. Make sure you discuss any questions you have with your health care provider. Document Revised: 12/07/2021 Document Reviewed: 12/07/2021 [employer] Patient Education ?? 2022 [employer]. COVID-19 COVID-19, or coronavirus disease 2019, is an infection that is caused by a new (novel) coronavirus called SARS-CoV-2. COVID-19 can cause many symptoms. In some people, the virus may not cause any symptoms. In others, it may cause mild or severe symptoms. Some people with severe infection develop severe disease. What are the causes? This illness is caused by a virus. The virus may be in the air as tiny specks of fluid (aerosols) or droplets, or it may be on surfaces. You may catch the virus by: ? Breathing in droplets from an infected person. Droplets can be spread by a person breathing, speaking, singing, coughing, or sneezing. ? Touching something, like a table or a doorknob, that has virus on it (is contaminated) and then touching your mouth, nose, or eyes. What increases the risk? Risk for infection: You are more likely to get infected with the COVID-19 virus if: ? You are within 6 ft (1.8 m) of a person with COVID-19 for 15 minutes or longer. ? You are providing care for a person who is infected with COVID-19. ? You are in close personal contact with other people. Close personal contact includes hugging, kissing, or sharing eating or drinking utensils. Risk for serious illness caused by COVID-19: You are more likely to get seriously ill from the COVID-19 virus if: ? You have cancer. ? You have a long-term (chronic) disease, such as: ? Chronic lung disease. This includes pulmonary embolism, chronic obstructive pulmonary disease, and cystic fibrosis. ? Long-term disease that lowers your body's ability to fight infection (immunocompromise). ? Serious cardiac conditions, such as heart failure, coronary artery disease, or cardiomyopathy. ? Diabetes. ? Chronic kidney disease. ? Liver diseases. These include cirrhosis, nonalcoholic fatty liver disease, alcoholic liver disease,or autoimmune hepatitis. ? You have obesity. ? You are or were recently . ? You have sickle cell disease. What are the signs or symptoms? Symptoms of this condition can range from mild to severe. Symptoms may appear any time from 2 to 14days after being exposed to the virus. They include: ? Fever or chills. ? Shortness of breath or trouble breathing. ? Feeling tired or very tired. ? Headaches, body aches, or muscle aches. ? Runny or stuffy nose, sneezing, coughing, or sore throat. ? New loss of taste or smell. This is rare. Some people may also have stomach problems, such as nausea, vomiting, or diarrhea. Other people may not have any symptoms of COVID-19. How is this diagnosed? This condition may be diagnosed by testing samples to check for the COVID-19 virus. The most commontests are the PCR test and the antigen test. Tests may be done in the lab or at home. They include: ? Using a swab to take a sample of fluid from the back of your nose and throat (nasopharyngeal fluid), from your nose, or from your throat. ? Testing a sample of saliva from your mouth. ? Testing a sample of coughed-up mucus from your lungs (sputum). How is this treated? Treatment for COVID-19 infection depends on the severity of the condition. ? Mild symptoms can be managed at home with rest, fluids, and jwkz-thy-vtwoerr medicines. ? Serious symptoms may be treated in a hospital intensive care unit (ICU). Treatment in the ICU may include: ? Supplemental oxygen. Extra oxygen is given through a tube in the nose, a face mask, or a diaz. ? Medicines. These may include: ? Antivirals, such as monoclonal antibodies. These help your body fight off certain viruses that can cause disease. ? Anti-inflammatories, such as corticosteroids. These reduce inflammation and suppress the immune system. ? Antithrombotics. These prevent or treat blood clots, if they develop. ? Convalescent plasma. This helps boost your immune system, if you have an underlying immunosuppressive condition or are getting immunosuppressive treatments. ? Prone positioning. This means you will lie on your stomach. This helps oxygen to get into your lungs. ? Infection control measures. If you are at risk for more serious illness caused by COVID-19, your health care provider may prescribe two long-acting monoclonal antibodies, given together every 6 months. How is this prevented? To protect yourself: ? Use preventive medicine (pre-exposure prophylaxis). You may get pre-exposure prophylaxis if you have moderate or severe immunocompromise. ? Get vaccinated. Anyone 6 months old or older who meets guidelines can get a COVID-19 vaccine or vaccine series. This includes people who are or making breast milk (lactating). ? Get an added dose of COVID-19 vaccine after your first vaccine or vaccine series if you have moderate to severe immunocompromise. This applies if you have had a solid organ transplant or have been diagnosed with an immunocompromising condition. ? You should get the added dose 4 weeks after you got the first COVID-19 vaccine or vaccine series. ? If you get an mRNA vaccine, you will need a 3-dose primary series. ? If you get the J&J/Albertina vaccine, you will need a 2-dose primary series, with the second dosebeing an mRNA vaccine. ? Talk to your health care provider about getting experimental monoclonal antibodies. This treatment is approved under emergency use authorization to prevent severe illness before or after being exposed to the COVID-19 virus. You may be given monoclonal antibodies if: ? You have moderate or severe immunocompromise. This includes treatments that lower your immune response. People with immunocompromise may not develop protection against COVID-19 when they are vaccinated. ? You cannot be vaccinated. You may not get a vaccine if you have a severe allergic reaction to the vaccine or its components. ? You are not fully vaccinated. ? You are in a facility where COVID-19 is present and: ? Are in close contact with a person who is infected with the COVID-19 virus. ? Are at high risk of being exposed to the COVID-19 virus. ? You are at risk of illness from new variants of the COVID-19 virus. To protect others: If you have symptoms of COVID-19, take steps to prevent the virus from spreading to others. ? Stay home. Leave your house only to get medical care. Do not use public transit, if possible. ? Do not travel while you are sick. ? Wash your hands often with soap and water for at least 20 seconds. If soap and water are not available, use alcohol-based hand senior tableau developer. ? Make sure that all people in your household wash their hands well and often. ? Cough or sneeze into a tissue or your sleeve or elbow. Do not cough or sneeze into your hand or into the air. Where to find more information ? Centers for Disease Control and Prevention: www.cdc.gov/coronavirus ? World Health Organization: www.who.int/health-topics/coronavirus Get help right away if: ? You have trouble breathing. ? You have pain or pressure in your chest. ? You are confused. ? You have bluish lips and fingernails. ? You have trouble waking from sleep. ? You have symptoms that get worse. These symptoms may be an emergency. Get help right away. Call 911. ? Do not wait to see if the symptoms will go away. ? Do not drive yourself to the hospital. Summary ? COVID-19 is an infection that is caused by a new coronavirus. ? Sometimes, there are no symptoms. Other times, symptoms range from mild to severe. Some people witha severe COVID-19 infection develop severe disease. ? The virus that causes COVID-19 can spread from person to person through droplets or aerosols from breathing, speaking, singing, coughing, or sneezing. ? Mild symptoms of COVID-19 can be managed at home with rest, fluids, and aepm-hjn-ouzfbps medicines. This information is not intended to replace advice given to you by your health care provider. Make sure you discuss any questions you have with your health care provider. Document Revised: 05/23/2022 Document Reviewed: 05/23/2022 Elsevier Patient Education ?? 2022 [employer] Tests Performed Medications and Immunizations Administered Given Sodium Chloride 0.9%, 1000 mL, Hydration Bolus acetaminophen, 1000 mg, IV Piggyback ondansetron, 4 mg, IV Push Lab Test Name Test Result Date/Time WBC 6.7 K/mcL 03/21/2023 13:48 EDT RBC 3.73 Million/mcL 03/21/2023 13:48 EDT Hgb 11.7 g/dL 03/21/2023 13:48 EDT Hct 35.1 % 03/21/2023 13:48 EDT MCV 94.1 fL 03/21/2023 13:48 EDT MCH 31.4 pg 03/21/2023 13:48 EDT MCHC 33.3 g/dL 03/21/2023 13:48 EDT RDW-CV 12.1 % 03/21/2023 13:48 EDT Platelets 233 K/mcL 03/21/2023 13:48 EDT MPV 10.7 fL 03/21/2023 13:48 EDT Neutro Auto 76.2 % 03/21/2023 13:48 EDT Lymph Auto 7.7 % 03/21/2023 13:[address] [facility] Auto 14.1 % 03/21/2023 13:48 EDT Eos, Auto 1.30 % 03/21/2023 13:48 EDT Basophil Auto 0.3 % 03/21/2023 13:48 EDT Imm Gran Auto 0.4 % 03/21/2023 13:48 EDT Neutro Absolute 5.1 K/mcL 03/21/2023 13:48 EDT Lymph Absolute 0.5 K/mcL 03/21/2023 13:[address] [facility] Absolute 1.0 K/mcL 03/21/2023 13:48 EDT Eos Absolute 0.1 K/mcL 03/21/2023 13:48 EDT Baso Absolute 0.0 K/mcL 03/21/2023 13:48 EDT Imm Gran Absolute 0.03 K/mcL 03/21/2023 13:48 EDT Slide Review Not Indicated 03/21/2023 13:48 EDT Sodium Level 138 mmol/L 03/21/2023 13:48 EDT Potassium Level 4.0 mmol/L 03/21/2023 13:48 EDT Chloride Level 98 mmol/L 03/21/2023 13:48 EDT CO2 28 mmol/L 03/21/2023 13:48 EDT Alk Phos 90 IntlUnit/L 03/21/2023 13:48 EDT AST 44 IntlUnit/L 03/21/2023 13:48 EDT ALT 55 IntlUnit/L 03/21/2023 13:48 EDT BUN 17 mg/dL 03/21/2023 13:48 EDT Glucose Level 107 mg/dL 03/21/2023 13:48 EDT Creatinine Level 1.20 mg/dL 03/21/2023 13:48 EDT BUN/Creat Ratio 14.2 03/21/2023 13:48 EDT eGFR CKD-EPI 84 mL/min/1.73 m2 03/21/2023 13:48 EDT Calcium Level 9.2 mg/dL 03/21/2023 13:48 EDT Protein Total 7.4 g/dL 03/21/2023 13:48 EDT Albumin Level 3.5 g/dL 03/21/2023 13:48 EDT Globulin 3.9 g/dL 03/21/2023 13:48 EDT A/G Ratio 0.9 g/dL 03/21/2023 13:48 EDT Bilirubin Total 0.6 mg/dL 03/21/2023 13:48 EDT Anion Gap 12.0 03/21/2023 13:48 EDT Osmolality 278 mOsm/kg 03/21/2023 13:48 EDT Patient/Induction Coordination Power Engineer Signature Patient Name:PEDRO PABLO SANCHEZ I have received this information and my questions have been answered. Patient/Induction Coordination Power Engineer Name: Patient/Induction Coordination Power Engineer Signature: Relationship to Patient: Witness Name/Signature: Date: Electronically Signed on: 03/21/2023 15:10 EDTSigned by:JANES Patient Care team information Care Team Personnel Name: JARRELL HOUSER DO Position: No Access Member Role: Primary Care Physician Address: Address: [address] [address] Name: [place] Position: Nurse Member Role: Registered Nurse Name: Cj Allan MD Position: Physician Member Role: ED Physician Address: Address: [address] [place] [id number] [place] Care Team Related Persons Name: ARY SANCHEZ Name: MILLER SANCHEZ
--- OUTSIDE RECORDS SUMMARY | 2023-05-14 12:34 | XMS_ITS | Continuity of Care Document ---
Author Name Unknown Organization [facility] Address [address] [place] [address] Care Team Providers Care Broadcast Traffic Coordinator Name Role Phone JARRELL HOUSER DO Primary Care Physician Encounter [facility] NBR [id number] Date(s): 01/08/23 - 01/08/23 [facility] [address], [place] [address] Encounter Diagnosis Pain in left lower leg(Final) - Discharge Disposition: Home or Self Care Attending Physician: Mariann Mckeon MD Admitting Physician: Mariann Mckeon MD Referring Physician: JARRELL HOUSER DO Allergies, Adverse Reactions, Alerts Substance Reaction [...] Oral, BID Start Date: 12/13/22 Status: Ordered ketorolac 10 mg oral tablet 10 mg = 1 tab, Oral, every 6 hr, PRN as needed for pain, not to exceed 40 mg/day and 5 days duration for all dose forms, # 12 cap, 0 Refill(s), Pharmacy: [id number], 178, cm, 12/18/22 13:10:00 EDT, Height/Length Dosing, 105, kg, 12/18/22 13:10:0... Start Date: 12/18/22 Status: Ordered levothyroxine 25 mcg (0.025 mg) [...] Exam Date Time Procedure Performing Provider Status 01/08/23 9:21 AM US Lower Ext Venous Duplex Left DomainUser, Generated; Auth (Verified) Notes: (US Lower Ext Venous Duplex Left) Reason For Exam: pain in leg US Lower Ext Venous Duplex Left EXAM DESCRIPTION: US Lower Ext Venous Duplex Left 01/08/2023 INDICATION: PAIN IN LEG TECHNIQUE: Static images of real-time sonography utilizing B-mode and color Doppler with spectral waveform analysis of the left lower extremity deep venous system was performed. FINDINGS: Left common femoral vein, saphenous junction, femoral vein, popliteal vein, as well as visualized portions of the posterior tibial and peroneal veins demonstrate normal compressibility, color flow and augmentation with no evidence of DVT. IMPRESSION: No evidence of left lower extremity DVT. JOB #: [id number] Final Signed by: John Burciaga MD Signed (Electronic Signature): 01/08/2023 9:38 am Social History Social History Type Response Tobacco Never tobacco user T obacco Use:. Sex Patient Care team information Care Team Personnel Name: JARRELL HOUSER DO Position: No Access Member Role: Primary Care Physician Address: Address: [place] [address]- Care Team Related Persons Name: ARY SANCHEZ Address: Home Name: MILLER SANCHEZ Address: Home
--- OUTSIDE RECORDS SUMMARY | 2023-05-14 12:34 | XMS_ITS | Continuity of Care Document ---
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 Name Role Phone JARRELL HOUSER DO Primary Care Physician Encounter [facility] FIN NBR [id number] Date(s): 04/06/23 - 04/06/23 [facility] [address] [place] [address]- Encounter Diagnosis Generalized weakness(Discharge Diagnosis) - 04/06/23 Weakness(Final) - Discharge Disposition: Home or Self Care Attending Physician: Mariann Mckeon MD Admitting Physician: Mariann Mckeon MD Allergies, Adverse Reactions, Alerts Substance Reaction Severity Status codeine Unknown Active amoxicillin Vomiting symptom Moderate Active penicillin Moderate Active Assessment and Plan Future Appointments Diagnostic Tests Pending * Lyme Disease (Borrelia Burgdorferi Abs) 04/06/23 Functional Status 04/06/23 Other exposure to Infectious Disease Non e [...] Daily, # 30 cap, 0 Refill(s), Pharmacy: [facility], 178, cm, 02/28/23 14:26:00 EDT, Height/Length Dosing, 104, kg, 02/28/23 14:26:00 EDT, Weight Dosing Start Date: 02/28/23 Status: Ordered Tums 500 mg oral tablet, chewable 500 mg = 1 tab, Chewed, BID, # 60 tab, 0 Refill(s) Start Date: 09/22/22 Status: Ordered Mental Status 04/06/23 Eye Opening Response Arthur Spontaneous ly Best Verbal Response [place] Oriented Best Motor Response Arthur Obeys comman [...] Laboratory List Name Date CBC w/ Diff 04/06/23 Comprehensive Metabolic Panel (CMP) 03/17 08/08 Drug Screen Urine 04/06/23 Magnesium Level 04/06/23 Automated Diff 04/06/23 Most recent to oldest [Reference Range]: 1 WBC [4.8-10.8 K/mcL] 7.0 K/mcL (04/06/23 11:00 AM) RBC [4.70-6.10 Million/mcL] 4.24 Million /mcL *LOW* (04/06/23 11:00 AM) Neutro Auto [42.2-75.2 %] 58.0 % (04/06/23 11:00 AM) Lymph Auto [20.5-51.1 %] 25.7 % (04/06/23 11:00 AM) Shasta Auto [1.7-9.3 %] 11.7 % *HI* (04/06/2300 AM) Basophil Auto [0.0-0.8 %] 0.6 % (04/06/23:00 AM) BUN [8-26 mg/dL] 20 mg/dL (04/06/23:00 AM) U Amph Scrn [Negative] Negative 1 (04/06/23 11:00 AM) Glucose Level [74-106 mg/dL] 110 mg/dL *HI* (04/06/23 11:00 AM) Potassium Level [3.5-5.1 mmol/L] 3.6 mmo l/L (04/06/23:00 AM) Baso Absolute [0.0-0.2 K/mcL] 0.0 K/mcL (04/06/23:00 AM) U Benzodia Scrn [Negative] Negative (04/06/23 11:00 AM) MCV [80.0-94.0 fL] 91.3 fL (04/06/23 11:00 AM) AST [15-41 IntlUnit/L] 27 IntlUnit/L (04/06/23 11:00 AM) ALT [17-63 IntlUnit/L] 25 IntlUnit/L (04/06/23:00 AM) MCHC [32.0-37.0 g/dL] 36.2 g/dL (04/06/23:00 AM) Osmolality [275-295 mOsm/kg] 275 mOsm/kg (04/06/23:00 AM) Sodium Level [134-143 mmol/L] 136 mmol/L (04/06/23 11:00 AM) Lymph Absolute [1.2-3.4 K/mcL] 1.8 K/mcL (04/06/23:00 AM) Hct [42.0-52.0 %] 38.7 % *LOW* (04/06/2300 AM) U Cocaine Scrn [Negative] Negative (04/06/2300 AM) Calcium Level [8.9-10.3 mg/dL] 9.0 mg/dL (04/06/23 11:00 AM) Shasta Absolute [0.1-0.6 K/mcL] 0.8 K/mcL *HI* (04/06/23 11:00 AM) Albumin Level [3.5-5.0 g/dL] 3.9 g/dL (04/06/23 11:00 AM) Protein Total [6.5-8.1 g/dL] 8.1 g/dL (04/06/23 11:00 AM) MCH [27.0-31.0 pg] 33.0 pg *HI* (04/06/23 11:00 AM) Magnesium Level [1.8-2.5 mg/dL] 1.9 mg/d L (04/06/23:00 AM) Neutro Absolute [1.4-6.5 K/mcL] 4.1 K/mc L (04/06/23:00 AM) Bilirubin Total [0.2-1.2 mg/dL] 0.7 mg/d L (04/06/23 11:00 AM) Hgb [14.0-18.0 g/dL] 14.0 g/dL 2 (04/06/23 11:00 AM) Alk Phos [38-130 IntlUnit/L] 85 IntlUnit /L (04/06/23 11:00 AM) MPV [7.4-10.4 fL] 11.2 fL *HI* (04/06/23 11:00 AM) Platelets [130-400 K/mcL] 336 K/mcL (04/06/23:00 AM) CO2 [22-32 mmol/L] 29 mmol/L (04/06/23 11:00 AM) Eos Absolute [0.0-0.2 K/mcL] 0.3 K/mcL *HI* (04/06/23 11:00 AM) U Gloria Scrn [Negative] Negative (04/06/23 11:00 AM) U Opiate Scrn [Negative] Negative (04/06/23 11:00 AM) Chloride Level [98-111 mmol/L] 99 mmol/L (04/06/23 11:00 AM) U Oxy Scrn [Negative] Negative (04/06/23 11:00 AM) U PCP Scrn [Negative] Negative (10/22/23 11:00 AM) RDW-CV [11.5-14.5 %] 12.1 % (04/06/23 11:00 AM) A/G Ratio [1.0-2.5 g/dL] 0.9 g/dL *LOW* (04/06/23 11:00 AM) BUN/Creat Ratio [8.0-20.0] 15.2 (04/06/23:00 AM) Globulin [2.3-3.5 g/dL] 4.2 g/dL *HI* (04/06/23 11:00 AM) U THC Scr [Negative] Negative (04/06/23 11:00 AM) U PPX Scr [Negative] Negative (04/06/23:00 AM) U Methadone Scr [Negative] Positive *ABN* (04/06/23:00 AM) Imm Gran Absolute [0.00-0.02 K/mcL] 0.02 K/mcL (04/06/23:00 AM) Imm Gran Auto [0.0-0.5 %] 0.3 % (04/06/23 11:00 AM) NRBC Auto 0 *NA* (04/06/23 11:00 AM) NRBC Absolute 0 *NA* (04/06/23 11:00 AM) Slide Review Not Indicated (04/06/23 11:00 AM) U Buprenorph Scr [Negative] Negative (04/06/23 11:00 AM) U mAMP Scr [Negative] Negative (04/06/23 11:00 AM) U TCA Scr [Negative] Negative (04/06/23:00 AM) Creatinine Level [0.61-1.24 mg/dL] 1.32 mg/dL *HI* (04/06/23 11:00 AM) Anion Gap [3.0-12.0] 8.0 (04/06/23 11:00 AM) Eos, Auto [0.00-3.00 %] 3.70 % *HI* (04/06/23 11:00 AM) eGFR CKD-EPI [>=60 mL/min/1.73 m2] 75 mL /min/1.73 m2 (04/06/23 11:00 AM) 1Interpretive Data: This test only provides a preliminary test result. A more specific alternate chemical method must be used in order to obtain a confirmed analytical result. Gas Chromatography/Mass Spectrometry (GC/MS) is the preferred confirmatory method. Clinical consideration and professional judgment should be applied to any drug of abuse test result, particularly when preliminary positive results are used. Please contact the laboratory if you wish to reflex to confirmatory (GC/MS) testing based upon screening results. THRESHOLD CONCENTRATIONS: AMP 500 ng/mL BAR 200 ng/mL BUP 10 ng/mL BZO 150 ng/mL RHONDA 150 ng/mL MAMP 500 ng/mL MTD 200 ng/mL OPI 100 ng/mL OXY 100 ng/mL PCP 25 ng/mL PPX 300 ng/mL THC 50 ng/mL TCA 300 ng/mL 2Result Comment: Results verified by repeat analysis. Vital Signs Most recent to oldest [Reference Range]: 1 Temperature Oral [35.8-37.3 Deg C] 36.8 Deg C (04/06/23 10:30 AM) Peripheral Pulse Rate [60-100 bpm] 98 bp m (04/06/23 10:30 AM) Respiratory Rate [12-24 br/min] 18 br/mi n (04/06/23 10:30 AM) Blood Pressure [90-140/60-90 mmHg] 128/9 0mmHg (04/06/23 10:30 AM) Mean Arterial Pressure, Cuff [65-140 mmH g] 103 mmHg (04/06/23 10:30 AM) Weight 105.00 kg (04/06/23 10:30 AM) Weight Dosing 105.00 kg (04/06/23 10:39 AM) Height 178.000 cm (04/06/23 10:30 AM) Height/Length Dosing 178.000 cm (04/06/23 10:39 AM) Body Mass Index 33.000 kg/m2 (04/06/23 10:30 AM) Social History Social History Type Response Tobacco Never tobacco user T obacco Use:. Sex Hospital Discharge Instructions Patient Education 04/06/2023 10:37:47 Weakness Weakness Weakness is a lack of strength. You may feel weak all over your body (generalized), or you may feelweak in one part of your body (focal). Common causes of weakness include: ??? Infection and disorders of the body's defense system (immune system). ??? Physical exhaustion. ??? Internal bleeding or other blood loss that results in a lack of red blood cells (anemia). ??? Dehydration. ??? An imbalance in mineral (electrolyte) levels, such as potassium. ??? Chronic kidney or liver disease. ??? Cancer. Other causes include: ??? Some medicines or cancer treatment. ??? Stress, anxiety, or depression. ??? Heart disease, circulation problems, or stroke. ??? Nervous system disorders. ??? Thyroid disorders. ??? Loss of muscle strength because of age or inactivity. ??? Poor sleep quality or sleep disorders. The cause of your weakness may not be known. Some causes of weakness can be serious, so it is important to see your health care provider. Follow these instructions at home: Activity ??? Rest as needed. ??? Try to get enough sleep. Most adults need 7???8 hours of quality sleep each night. Talk to yourhealth care provider about how much sleep you need. ??? Do exercises, such as arm curls and leg raises, for 30 minutes at least 2 days a week or as told by your health care provider. This helps build muscle strength. ??? Consider working with a physical therapist or sharepoint trainer who can develop an exercise plan to help you gain muscle strength. General instructions ??? Take [id number] and prescription medicines only as told by your health care provider. ??? Eat a healthy, well-balanced diet. This includes: ??? Proteins to build muscles, such as lean meats and fish. ??? Fresh fruits and vegetables. ??? Carbohydrates to boost energy, such as whole grains. ??? Drink enough fluid to keep your urine pale yellow. ??? Keep all follow-up visits. This is important. Contact a health care provider if: ??? Your weakness does not improve or gets worse. ??? Your weakness affects your ability to think clearly. ??? Your weakness affects your ability to do your normal daily activities. Get help right away if: ??? You develop sudden weakness, especially on one side of your face or body. ??? You have chest pain. ??? You have trouble breathing or shortness of breath. ??? You have problems with your vision. ??? You have trouble talking or swallowing. ??? You have trouble standing or walking. ??? You are light-headed or lose consciousness. These symptoms may be an emergency. Get help right away. Call 911. ??? Do not wait to see if the symptoms will go away. ??? Do not drive yourself to the hospital. Summary ??? Weakness is a lack of strength. You may feel weak all over your body or just in one specific part of your body. ??? Weakness can be caused by a variety of things. In some cases, the cause may be unknown. ??? Rest as needed, and try to get enough sleep. Most adults need 7???8 hours of quality sleep eachnight. ??? Eat a healthy, well-balanced diet. This information is not intended to replace advice given to you by your health care provider. Make sure you discuss any questions you have with your health care provider. Document Revised: 05/05/2022 Document Reviewed: 05/05/2022 [facility] Patient Education ?? 2022 [employer]. Follow Up Care 04/06/2023 10:30:23 With:primary care physician Address: When:3 to 5 days Physician Emergency department Note * Mariann Mckeon MD: PERFORM Event Display: ED Note Physician Authored Date: [id number] LAURADESIRE :1995 Age:27 years Sex:Male Visit Date:04/06/2023 Primary Care Physician: JARRELL HOUSER DO Basic Information Time Seen: Mariann Mckeon MD / 04/06/2023 10:32 Chief Complaint Pt states he woke this AM with weakness in his legs and arms. C/O pain in joints. Had covid 3 weeksago. History Of Present Illness: This patient is a 27-year-old obese male who is very well-known to this emergency department with history of M EN type I who presents today for evaluation of??extremity weakness. ??The patient statesthat a few days ago he noticed??some??weakness and discomfort in his hands. ??Then this morning??hefelt some generalized weakness in the lower extremities.?? Patient has not had any swelling??of joints or erythema of joints.?? Feels as though his legs in general might be slightly swollen but I do not appreciate any edema.?? The patient has not had any fevers or chills. ??No known tick bites.?? He has a primary care physician appointment on April 23. Review of Systems: CONSTITUTIONAL:??No fevers or chills. EYES:??No change in vision. ENT:??No sore throat. ??No headache. ??No neck pain. CARDIOVASCULAR:??No chest pain, palpitations or passing out episodes. RESPIRATORY:??No cough, shortness of breath or hemoptysis. GI:??No abdominal pain. No nausea, vomiting or diarrhea. :??No change in urination. SKIN:??No rash. NEUROLOGIC: Generalized weakness without loss of sensation MUSCULOSKELETAL: Hand joint achiness PSYCHIATRIC:??No depression. LYMPH:??No swelling. Review of systems otherwise as stated in HPI Physical Exam Vitals & Measurements T:??36.8?C ??(Oral)?? HR:??98??(Peripheral)?? RR:??18?? BP:??128/90?? SpO2:??97%?? HT:??178.000??cm?? WT:??105.00??kg?? BMI:??33.000?? O2 Therapy:??Room air?? General: ??AAOx3. ??GCS15. ??No acute distress, answering questions appropriately.?? Obese male. Head: ??Atraumatic; Normocephalic Eye: ??PERRLA; EOMI; no scleral icterus / pallor ENT: moist mucous membranes; no epistaxis. No stridor. Neck: ??Active ROM intact; Trachea Midline. ??No JVD. ??No meningismus appreciated. Skin: Warm, dry Chest: ??Equal BS bilaterally. ??Clear to auscultation bilaterally. Heart: RRR; no murmur, rub, or gallop Abdomen: ??Soft, non-tender, non-distended, no guarding, rebound, or rigidity. No Hepatosplenomegaly Musculoskeletal: ??ROM intact of all extremities/joints without discomfort. ??Sensation grossly intact throughout. ??No obvious deformity. ??Strength Intact 5/5 throughout. ??No erythema or swelling of joints. Neuro: Alert and oriented. Answering questions appropriately with clear speech. Motor and sensory grossly normal in all extremities.?No pronator drift. Medical Decision Making: Patient is a 27-year-old male with a history of M EN type I who is well-known to this emergency department with complaints of generalized weakness in the extremities. ??Physical exam was unremarkable. ??Patient CBC was unremarkable.?? CMP showed a creatinine of 1.32 which is similar to his prior of1.34.?? Urine drug screen is positive for methadone.?Lyme testing is pending at this time.?? I strongly encourage this patient to keep his primary care doctor appointment and to follow-up with them for any additional concerns??in general??unless he feels that it is an emergency to be seen here.?? The patient's vital signs have all remained stable, his neurological exam was normal.?? At this time I think patient can be discharged home. Procedure No Qualifying Data Assessment/Plan 1.??Generalized weakness??R53.1 Orders: Discharge Patient, 04/06/23 11:38:00 EDT Lyme Disease (Borrelia Burgdorferi Abs), Blood, ST, Collected, 04/06/23 10:43:00 EDT, by [facility], Lab Collect Patient Education Weakness Follow Up With When Contact Information primary care physician Within 3 to 5 days Additional Instructions: Medication Reconciliation Unchanged acetaminophen (acetaminophen 325 mg oral capsule)1 Capsules Oral (given by mouth) every 4 hours as needed as needed for fever. ?? calcitriol (calcitriol 0.25 mcg oral capsule)1 Capsules Oral (given by mouth) [...] History of opioid abuse Procedure/Surgical History ???Parathyroid Allergies amoxicillin??(Vomiting symptom) penicillin codeine Social History [...] and Differential?? LATEST RESULTS?? HISTORICAL RESULTS?? WBC?? 04/06/23 11:00?? 7.0?? 04/01/23?? 6.3?? RBC?? 04/06/23 11:00?? 4.24 ??Low?? 04/01/23?? 3.74 ??Low?? Hgb?? 04/06/23 11:00?? 14.0?? 04/01/23?? 11.7 ??Low?? Hct?? 04/06/23 11:00?? 38.7 ??Low?? 04/01/23?? 34.3 ??Low?? MCV?? 04/06/23 11:00?? 91.3?? 04/01/23?? 91.7?? MCH?? 04/06/23 11:00?? 33.0 ??High?? 04/01/23?? 31.3 ??High?? MCHC?? 04/06/23 11:00?? 36.2?? 04/01/23?? 34.1?? RDW-CV?? 04/06/23 11:00?? 12.1?? 04/01/23?? 11.7?? Platelets?? 04/06/23 11:00?? 336?? 04/01/23?? 293?? MPV?? 04/06/23 11:00?? 11.2 ??High?? 04/01/23?? 10.4?? Neutro Auto?? 04/06/23 11:00?? 58.0?? 04/01/23?? 56.5?? Lymph Auto?? 04/06/23 11:00?? 25.7?? 04/01/23?? 27.0?? Shasta Auto?? 04/06/23 11:00?? 11.7 ??High?? 04/01/23?? 12.2 ??High?? Eos, Auto?? 04/06/23 11:00?? 3.70 ??High?? 04/01/23?? 3.50 ??High?? Basophil Auto?? 04/06/23 11:00?? 0.6?? 04/01/23?? 0.3?? Imm Gran Auto?? 04/06/23 11:00?? 0.3?? 04/01/23?? 0.5?? Neutro Absolute?? 04/06/23 11:00?? 4.1?? 04/01/23?? 3.6?? Lymph Absolute?? 04/06/23 11:00?? 1.8?? 04/01/23?? 1.7?? Shasta Absolute?? 04/06/23 11:00?? 0.8 ??High?? 04/01/23?? 0.8 ??High?? Eos Absolute?? 04/06/23 11:00?? 0.3 ??High?? 04/01/23?? 0.2?? Baso Absolute?? 04/06/23 11:00?? 0.0?? 04/01/23?? 0.0?? Imm Gran Absolute?? 04/06/23 11:00?? 0.02?? 04/01/23?? 0.03 ??High?? Slide Review?? 04/06/23 11:00?? Not Indicated?? 04/01/23?? Not Indicated? Routine Chemistry?? LATEST RESULTS?? HISTORICAL RESULTS?? Sodium Level?? 04/06/23 11:00?? 136?? 04/01/23?? 138?? Potassium Level?? 04/06/23 11:00?? 3.6?? 04/01/23?? 3.8?? Chloride Level?? 04/06/23 11:00?? 99?? 04/01/23?? 100?? CO2?? 04/06/23 11:00?? 29?? 04/01/23?? 28?? Alk Phos?? 04/06/23 11:00?? 85?? 04/01/23?? 74?? AST?? 04/06/23 11:00?? 27?? 04/01/23?? 23?? ALT?? 04/06/23 11:00?? 25?? 04/01/23?? 22?? BUN?? 04/06/23 11:00?? 20?? 04/01/23?? 22?? Glucose Level?? 04/06/23 11:00?? 110 ??High?? 04/01/23?? 117 ??High?? Creatinine Level?? 04/06/23 11:00?? 1.32 ??High?? 04/01/23?? 1.34 ??High?? BUN/Creat Ratio?? 04/06/23 11:00?? 15.2?? 04/01/23?? 16.4?? eGFR CKD-EPI?? 04/06/23 11:00?? 75?? 04/01/23?? 74?? Calcium Level?? 04/06/23 11:00?? 9.0?? 04/01/23?? 9.2?? Protein Total?? 04/06/23 11:00?? 8.1?? 04/01/23?? 7.2?? Albumin Level?? 04/06/23 11:00?? 3.9?? 04/01/23?? 3.4 ??Low?? Globulin?? 04/06/23 11:00?? 4.2 ??High?? 04/01/23?? 3.8 ??High?? A/G Ratio?? 04/06/23 11:00?? 0.9 ??Low?? 04/01/23?? 0.9 ??Low?? Bilirubin Total?? 04/06/23 11:00?? 0.7?? 04/01/23?? 0.5?? Anion Gap?? 04/06/23 11:00?? 8.0?? 04/01/23?? 10.0?? Magnesium Level?? 04/06/23 11:00?? 1.9?? 01/23/23?? 2.1?? Osmolality?? 04/06/23 11:00?? 275?? 04/01/23?? 280? Urine Toxicology?? LATEST RESULTS?? U Amph Scrn?? 04/06/23 11:00?? Negative?? U Gloria Scrn?? 04/06/23 11:00?? Negative?? U Benzodia Scrn?? 04/06/23 11:00?? Negative?? U Buprenorph Scr?? 04/06/23 11:00?? Negative?? U Cocaine Scrn?? 04/06/23 11:00?? Negative?? U TCA Scr?? 04/06/23 11:00?? Negative?? U THC Scr?? 04/06/23 11:00?? Negative?? U mAMP Scr?? 04/06/23 11:00?? Negative?? U Methadone Scr?? 04/06/23 11:00?? Positive Abnormal?? U Opiate Scrn?? 04/06/23 11:00?? Negative?? U Oxy Scrn?? 04/06/23 11:00?? Negative?? U PCP Scrn?? 04/06/23 11:00?? Negative?? U PPX Scr?? 04/06/23 11:00?? Negative? Electronically Signed on 04/06/23 11:38 AM Mariann Mckeon MD Emergency department Discharge instructions * Mariann Mckeon MD: PERFORM Event Display: ED Discharge Information Authored Date: [id number] DEISRE SANCHEZ :1995 Age:27 years Sex:Male Visit Date:04/06/2023 Primary Care Physician: JARRELL HOUSER DO Discharge Instructions We would like to thank you for allowing us to assist you with your healthcare needs. The following includes patient education materials and information regarding your injury/illness. Diagnosis from Today's Visit Generalized weakness Discharge Vitals Temperature??(Oral) 98.2 ??F (36.8 ??C) Heart Rate??(Peripheral) 98 Respiratory Rate?? 18 Blood Pressure?? 128/90?? Height?? 70.08 in (178.000 cm) Weight?? 231.52 lb (105.00 kg) BMI?? 33.000 Allergies amoxicillin??(Vomiting symptom) penicillin codeine What to Do Next You Need to Schedule the Following Appointments Follow Up with??primary care physician When:??Within 3 to 5 days Upcoming Scheduled Appointments 2022 9:30 AM EDT ?? You were treated today on an emergency [...] Unchanged calcitriol (calcitriol 0.25 mcg oral capsule) 1 Capsules Oral (given by [...] Chest pain due to GERD Education Materials Weakness Weakness is a lack of strength. You may feel weak all over your body (generalized), or you may feelweak in one part of your body (focal). Common causes of weakness include: ? Infection and disorders of the body's defense system (immune system). ? Physical exhaustion. ? Internal bleeding or other blood loss that results in a lack of red blood cells (anemia). ? Dehydration. ? An imbalance in mineral (electrolyte) levels, such as potassium. ? Chronic kidney or liver disease. ? Cancer. Other causes include: ? Some medicines or cancer treatment. ? Stress, anxiety, or depression. ? Heart disease, circulation problems, or stroke. ? Nervous system disorders. ? Thyroid disorders. ? Loss of muscle strength because of age or inactivity. ? Poor sleep quality or sleep disorders. The cause of your weakness may not be known. Some causes of weakness can be serious, so it is important to see your health care provider. Follow these instructions at home: Activity ? Rest as needed. ? Try to get enough sleep. Most adults need 7???8 hours of quality sleep each night. Talk to your health care provider about how much sleep you need. ? Do exercises, such as arm curls and leg raises, for 30 minutes at least 2 days a week or as told byyour health care provider. This helps build muscle strength. ? Consider working with a physical therapist or sharepoint trainer who can develop an exercise plan to help you gain muscle strength. General instructions ? Take [id number] and prescription medicines only as told by your health care provider. ? Eat a healthy, well-balanced diet. This includes: ? Proteins to build muscles, such as lean meats and fish. ? Fresh fruits and vegetables. ? Carbohydrates to boost energy, such as whole grains. ? Drink enough fluid to keep your urine pale yellow. ? Keep all follow-up visits. This is important. Contact a health care provider if: ? Your weakness does not improve or gets worse. ? Your weakness affects your ability to think clearly. ? Your weakness affects your ability to do your normal daily activities. Get help right away if: ? You develop sudden weakness, especially on one side of your face or body. ? You have chest pain. ? You have trouble breathing or shortness of breath. ? You have problems with your vision. ? You have trouble talking or swallowing. ? You have trouble standing or walking. ? You are light-headed or lose consciousness. These symptoms may be an emergency. Get help right away. Call 911. ? Do not wait to see if the symptoms will go away. ? Do not drive yourself to the hospital. Summary ? Weakness is a lack of strength. You may feel weak all over your body or just in one specific part of your body. ? Weakness can be caused by a variety of things. In some cases, the cause may be unknown. ? Rest as needed, and try to get enough sleep. Most adults need 7???8 hours of quality sleep each night. ? Eat a healthy, well-balanced diet. This information is not intended to replace advice given to you by your health care provider. Make sure you discuss any questions you have with your health care provider. Document Revised: 05/05/2022 Document Reviewed: 05/05/2022 [employer] Patient Education ?? 2022 [employer] Tests Performed Lab Test Name Test Result Date/Time WBC 7.0 K/mcL 04/06/2023 11:00 EDT RBC 4.24 Million/mcL 04/06/2023 11:00 EDT Hgb 14.0 g/dL 04/06/2023 11:00 EDT Hct 38.7 % 04/06/2023 11:00 EDT MCV 91.3 fL 04/06/2023 11:00 EDT MCH 33.0 pg 04/06/2023 11:00 EDT MCHC 36.2 g/dL 04/06/2023 11:00 EDT RDW-CV 12.1 % 04/06/2023 11:00 EDT Platelets 336 K/mcL 04/06/2023 11:00 EDT MPV 11.2 fL 04/06/2023 11:00 EDT Neutro Auto 58.0 % 04/06/2023 11:00 EDT Lymph Auto 25.7 % 04/06/2023 11:00 EDT Shasta Auto 11.7 % 04/06/2023 11:00 EDT Eos, Auto 3.70 % 04/06/2023 11:00 EDT Basophil Auto 0.6 % 04/06/2023 11:00 EDT Imm Gran Auto 0.3 % 04/06/2023 11:00 EDT Neutro Absolute 4.1 K/mcL 04/06/2023 11:00 EDT Lymph Absolute 1.8 K/mcL 04/06/2023 11:00 EDT Shasta Absolute 0.8 K/mcL 04/06/2023 11:00 EDT Eos Absolute 0.3 K/mcL 04/06/2023 11:00 EDT Baso Absolute 0.0 K/mcL 04/06/2023 11:00 EDT Imm Gran Absolute 0.02 K/mcL 04/06/2023 11:00 EDT Slide Review Not Indicated 04/06/2023 11:00 EDT Sodium Level 136 mmol/L 04/06/2023 11:00 EDT Potassium Level 3.6 mmol/L 04/06/2023 11:00 EDT Chloride Level 99 mmol/L 04/06/2023 11:00 EDT CO2 29 mmol/L 04/06/2023 11:00 EDT Alk Phos 85 IntlUnit/L 04/06/2023 11:00 EDT AST 27 IntlUnit/L 04/06/2023 11:00 EDT ALT 25 IntlUnit/L 04/06/2023 11:00 EDT BUN 20 mg/dL 04/06/2023 11:00 EDT Glucose Level 110 mg/dL 04/06/2023 11:00 EDT Creatinine Level 1.32 mg/dL 04/06/2023 11:00 EDT BUN/Creat Ratio 15.2 04/06/2023 11:00 EDT eGFR CKD-EPI 75 mL/min/1.73 m2 04/06/2023 11:00 EDT Calcium Level 9.0 mg/dL 04/06/2023 11:00 EDT Protein Total 8.1 g/dL 04/06/2023 11:00 EDT Albumin Level 3.9 g/dL 04/06/2023 11:00 EDT Globulin 4.2 g/dL 04/06/2023 11:00 EDT A/G Ratio 0.9 g/dL 04/06/2023 11:00 EDT Bilirubin Total 0.7 mg/dL 04/06/2023 11:00 EDT Anion Gap 8.0 04/06/2023 11:00 EDT Magnesium Level 1.9 mg/dL 04/06/2023 11:00 EDT Osmolality 275 mOsm/kg 04/06/2023 11:00 EDT U Amph Scrn NEG 04/06/2023 11:00 EDT U Gloria Scrn NEG 04/06/2023 11:00 EDT U Benzodia Scrn NEG 04/06/2023 11:00 EDT U Buprenorph Scr NEG 04/06/2023 11:00 EDT U Cocaine Scrn NEG 04/06/2023 11:00 EDT U TCA Scr NEG 04/06/2023 11:00 EDT U THC Scr NEG 04/06/2023 11:00 EDT U mAMP Scr NEG 04/06/2023 11:00 EDT U Methadone Scr POS 04/06/2023 11:00 EDT U Opiate Scrn NEG 04/06/2023 11:00 EDT U Oxy Scrn NEG 04/06/2023 11:00 EDT U PCP Scrn NEG 04/06/2023 11:00 EDT U PPX Scr NEG 04/06/2023 11:00 EDT Patient/Crutching Contractor Signature Patient Name:DESIRE SANCHEZ I have received this information and my questions have been answered. Patient/Crutching Contractor Name: Patient/Crutching Contractor Signature: Relationship to Patient: Witness Name/Signature: Date: Electronically Signed on: 04/06/2023 11:38 EDTSigned by:AF Patient Care team information Care Team Personnel Name: JARRELL HOUSER DO Position: No Access Member Role: Primary Care Physician Address: Address: [address] [address]- [place] Name: Mariann Mckeon MD Position: Physician Member Role: Ordering Physician Address: Address: [address] [place] [id number] Name: Pawel Medrano Position: Nurse Member Role: ED Nurse Care Team Related Persons Name: ARY SANCHEZ Name: MILLER SANCHEZ
--- OUTSIDE RECORDS SUMMARY | 2023-05-14 12:34 | XMS_ITS | Continuity of Care Document ---
Author Name Unknown Organization [facility] Address [address] [place] [address] Care Team Providers Care Food Technologist Name Role Phone JARRELL HOUSER DO Primary Care Physician Encounter LTTL_IN FIN NBR [id number] Date(s): 09/25/22 - 09/25/22 [facility] [address] [place] [address]- [place] Encounter Diagnosis Viral illness(Discharge Diagnosis) - 09/25/22 Discharge Disposition: Home or Self Care Attending Physician: Mariann Mckeon MD Admitting Physician: Mariann Mckeon MD Allergies, Adverse Reactions, Alerts Substance Reaction Severity Status codeine Unknown Active amoxicillin Vomiting symptom Moderate Active Functional Status 09/25/22 Recent Travel History No recent travel Other exposure to Infectious Disease Non e Medications acetaminophen 325 mg oral capsule 325 mg = 1 cap, Oral, every 4 hr, PRN as needed for fever, # 90 cap, 0 Refill(s) Start Date: 09/22/22 Status: Ordered calcitriol 0.25 mcg oral capsule 0.5, Oral, BID Start Date: 06/22/22 Status: Ordered Carafate 1 g oral tablet 1 g = 1 tab, Oral, BID, # 60 tab, 0 Refill(s) Start Date: 09/22/22 Status: Ordered clonazePAM 1 mg oral tablet 1 mg = 1 tab, Oral, BID, 0 Refill(s) Start Date: 09/22/22 Status: Ordered cyclobenzaprine 10 mg oral tablet 0 Refill(s) Start Date: 09/22/22 Status: Ordered [...] Ordered methadone 10 mg/5 mL oral solution 10 mg = 5 mL, Oral, every 6 hr, PRN as needed for pain, 0 Refill(s) Start Date: 09/22/22 Status: Ordered Neurontin 800 mg oral tablet 800 mg = 1 tab, Oral, TID, # 90 tab, 0 Refill(s) Start Date: 09/22/22 Status: [...] Confirmed Active Torticollis Confirmed Active 1elevated Results Laboratory List Name Date Strep A ([facility]) 09/25/22 SARS-CoV-2 (Covid-19) AG ([facility]) POCT 06/07 Most recent to oldest [Reference Range]: 1 Streptococcus A -[facility] [Not Detected ] Not Detected (09/25/22 10:06 AM) SARS-CoV or CoV-2 (COVID-19) Ag ([facility]) [Negative] Negative (09/25/22 9:48 AM) Employed in healthcare? Unknown *NA* (09/25/22 9:48 AM) Symptomatic as defined by CDC? Unknown *NA* (09/25/22 9:48 AM) Date of onset (Lab) Unknown *NA* (09/25/22 9:48 AM) Hospitalized due to COVID-19? Unknown *NA* (09/25/22 9:48 AM) In ICU? Unknown *NA* (09/25/22 9:48 AM) Group care resident? Unknown *NA* (09/25/22 9:48 AM) status? Unknown *NA* (09/25/22 9:48 AM) Vital Signs Most recent to oldest [Reference Range]: 1 2 3 Temperature Temporal Artery [36-38 Deg C] 36.3 Deg C (09/25/22 10:02 AM) Temperature Temporal Artery (DegF) [97.3-100 Deg F] 97.34 Deg F (09/25/22 10:02 AM) Peripheral Pulse Rate [60-100 bpm] 95 bpm (09/25/22 10:30 AM) 95 bpm (09/25/22 10:15 AM) 95 bpm (09/25/22 10:02 AM) Heart Rate Monitored [60-100 bpm] 95 bpm (09/25/22 10:30 AM) 95 bpm (09/25/22 10:15 AM) 95 bpm (09/25/22 10:02 AM) Blood Pressure [90-140/60-90 mmHg] 124/77mmHg (09/25/22 10:30 AM) 107/65mmHg (09/25/22 10:15 AM) 111/81mmHg (09/25/22 10:02 AM) Mean Arterial Pressure Cuff 91 mmHg (09/25/22 10:30 AM) 78 mmHg (09/25/22 10:15 AM) Weight Dosing 101.10 kg (09/25/22 10:05 AM) Weight Estimated 101.10 kg (09/25/22 9:55 AM) Height/Length Dosing 177.800 cm (09/25/22 10:05 AM) Height/Length Estimated 177.800 cm (09/25/22 9:55 AM) Social History Social History Type Response Tobacco Never tobacco user T obacco Use:. Sex Hospital Discharge Instructions Patient Education 09/25/2022 09:49:30 Viral Illness, Adult Viral Illness, Adult Viruses are tiny germs that can get into a person's body and cause illness. There are many different types of viruses, and they cause many types of illness. Viral illnesses can range from mild to severe. They can affect various parts of the body. Short-term conditions that are caused by a virus include colds and the flu (influenza). Long-term conditions that are caused by a virus include herpes, shingles, and HIV (human immunodeficiency virus) infection. A few viruses have been linked to certain cancers. What are the causes? Many types of viruses can cause illness. Viruses invade cells in your body, multiply, and cause theinfected cells to work abnormally or . When these cells , they release more of the virus. When this happens, you develop symptoms of the illness, and the virus continues to spread to other cells. If the virus takes over the function of the cell, it can cause the cell to divide and grow out ofcontrol. This happens when a virus causes cancer. Different viruses get into the body in different ways. You can get a virus by: ??? Swallowing food or water that has come in contact with the virus (is contaminated). ??? Breathing in droplets that have been coughed or sneezed into the air by an infected person. ??? Touching a surface that has been contaminated with the virus and then touching your eyes, nose,or mouth. ??? Being bitten by an insect or animal that carries the virus. ??? Having sexual contact with a person who is infected with the virus. ??? Being exposed to blood or fluids that contain the virus, either through an open cut or during atransfusion. If a virus enters your body, your body's defense system (immune system) will try to fight the virus. You may be at higher risk for a viral illness if your immune system is weak. What are the signs or symptoms? You may have these symptoms, depending on the type of virus and the location of the cells that it invades: ??? Cold and flu viruses: ??? Fever. ??? Headache. ??? Sore throat. ??? Muscle aches. ??? Stuffy nose (nasal congestion). ??? Cough. ??? Digestive system (gastrointestinal) viruses: ??? Fever. ??? Pain in the abdomen. ??? Nausea. ??? Diarrhea. ??? Liver viruses (hepatitis): ??? Loss of appetite. ??? Tiredness. ??? Skin or the white parts of your eyes turning yellow (jaundice). ??? Brain and spinal cord viruses: ??? Fever. ??? Headache. ??? Stiff neck. ??? Nausea and vomiting. ??? Confusion or sleepiness. ??? Skin viruses: ??? Warts. ??? Itching. ??? Rash. ??? Sexually transmitted viruses: ??? Discharge. ??? Swelling. ??? Redness. ??? Rash. How is this diagnosed? This condition may be diagnosed based on one or more of the following: ??? Symptoms. ??? Medical history. ??? Physical exam. ??? Blood test, sample of mucus from your lungs (sputum sample), stool sample, or a swab of body fluids or a skin sore (lesion). How is this treated? Viruses can be hard to treat because they live within cells. Antibiotic medicines do not treat viruses because these medicines do not get inside cells. Treatment for a viral illness may include: ??? Resting and drinking plenty of fluids. ??? Medicines to relieve symptoms. These can include apgq-hvb-kuiawjs medicine for pain and fever, medicines for cough or congestion, and medicines to relieve diarrhea. ??? Antiviral medicines. These medicines are available only for certain types of viruses. Some viral illnesses can be prevented with vaccinations. A common example is the flu shot. Follow these instructions at home: Medicines ??? Take jgis-ilb-qlrfuaq and prescription medicines only as told by your health care provider. ??? If you were prescribed an antiviral medicine, take it as told by your health care provider. Do not stop taking the antiviral even if you start to feel better. ??? Be aware of when antibiotics are needed and when they are not needed. Antibiotics do not treat viruses. You may get an antibiotic if your health care provider thinks that you may have, or are at risk for, a bacterial infection and you have a viral infection. ??? Do not ask for an antibiotic prescription if you have been diagnosed with a viral illness. Antibiotics will not make your illness go away faster. ??? Frequently taking antibiotics when they are not needed can lead to antibiotic resistance. When this develops, the medicine no longer works against the bacteria that it normally fights. General instructions ??? Drink enough fluids to keep your urine pale yellow. ??? Rest as much as possible. ??? Return to your normal activities as told by your health care provider. Ask your health care provider what activities are safe for you. ??? Keep all follow-up visits as told by your health care provider. This is important. How is this prevented? To reduce your risk of viral illness: ??? Wash your hands often with soap and water for at least 20 seconds. If soap and water are not available, use hand window shade ring coverer. ??? Avoid touching your nose, eyes, and mouth, especially if you have not washed your hands recently. ??? If anyone in your household has a viral infection, clean all household surfaces that may have been in contact with the virus. Use soap and hot water. You may also use bleach that you have added water to (diluted). ??? Stay away from people who are sick with symptoms of a viral infection. ??? Do not share items such as toothbrushes and water bottles with other people. ??? Keep your vaccinations up to date. This includes getting a yearly flu shot. ??? Eat a healthy diet and get plenty of rest. Contact a health care provider if: ??? You have symptoms of a viral illness that do not go away. ??? Your symptoms come back after going away. ??? Your symptoms get worse. Get help right away if you have: ??? Trouble breathing. ??? A severe headache or a stiff neck. ??? Severe vomiting or pain in your abdomen. These symptoms may represent a serious problem that is an emergency. Do not wait to see if the symptoms will go away. Get medical help right away. Call your local emergency services (911 in the [place] Do not drive yourself to the hospital. Summary ??? Viruses are types of germs that can get into a person's body and cause illness. Viral illnessescan range from mild to severe. They can affect various parts of the body. ??? Viruses can be hard to treat. There are medicines to relieve symptoms, and there are some antiviral medicines. ??? If you were prescribed an antiviral medicine, take it as told by your health care provider. Do not stop taking the antiviral even if you start to feel better. ??? Contact a health care provider if you have symptoms of a viral illness that do not go away. This information is not intended to replace advice given to you by your health care provider. Make sure you discuss any questions you have with your health care provider. Document Revised: 10/16/2020 Document Reviewed: 04/11/2020 [employer] Patient Education ?? 2021 [employer]. Follow Up Care 09/25/2022 09:55:38 With:primary care physician Address: When:3 to 5 days Physician Emergency department Note * Mariann Mckeon MD: PERFORM, MODIFY Event Display: ED Note Physician Authored Date: [id number] DESIRE SANCHEZ :1995 Age:26 years Sex:Male Visit Date:09/25/2022 Primary Care Physician: JARRELL HOUSER DO Basic Information Time Seen: Mariann Mckeon MD / 09/25/2022 09:59 Chief Complaint fatique and general malaise History Of Present Illness: Patient is a 26-year-old male who presents emergency department today for evaluation of??fatigue and sore throat. ??The patient states that he is??been feeling somewhat unwell since yesterday with symptoms including sore throat, fatigue and??mild cough.?? The patient states he is vaccinated for COVID. ??He has not had any fever or vomiting at home. ??No diarrhea.?? No known sick contacts.?? No associated abdominal pain. ??No rash. Review of Systems: Review of systems as stated above Physical Exam Vitals & Measurements T:??36.3?C ??(Temporal Artery)?? HR:??95??(Peripheral)?? HR:??95??(Monitored)?? BP:??124/77?? SpO2:??96%?? HT:??177.800??cm?? WT:??101.10??kg??(Estimated)?? O2 Therapy:??Room air?? General: ??AAOx3. ??GCS15. ??No acute distress, answering questions appropriately. Head: ??Atraumatic; Normocephalic Eye: ??PERRLA; EOMI; no scleral icterus / pallor ENT: moist mucous membranes; no epistaxis. No stridor.?? Posterior oropharynx is clear without any tonsillar exudate or enlargement. ??Uvula is midline. Neck: ??Active ROM intact; Trachea Midline. ??No JVD. ??No meningismus appreciated. Skin: Warm, dry Chest: ??Equal BS bilaterally. ??Clear to auscultation bilaterally. Heart: RRR; no murmur, rub, or gallop Musculoskeletal: ??ROM intact of all extremities/joints without discomfort. ??Sensation grossly intact throughout. ??No obvious deformity. ??Strength Intact 5/5 throughout. ?? Neuro: Alert and oriented. Answering questions appropriately with clear speech. Motor and sensory grossly normal in all extremities.?? Medical Decision Making: Patient is a 26-year-old male who is well-appearing on exam and presents today with??sore throat and fatigue. ??The patient did not have any significant tonsillar enlargement or exudate.?? Overall heappeared well and his vital signs were stable.?? Patient had a rapid strep test which was negative.??We were awaiting a??COVID test however the patient was notified that his mother had just been taken to the hospital for stroke and wished to be discharged home??and we will call him with that result. ??I think this is reasonable given how well- appearing the patient is??that he can be discharged home. ?? Covid test was negative. Procedure No Qualifying Data Assessment/Plan 1.??Viral illness??B34.9 Orders: Discharge Patient, 09/25/22 10:50:00 EDT Patient Education Viral Illness, Adult Follow Up With When Contact Information primary [...] by mouth) 2 times a day. ?? cyclobenzaprine (cyclobenzaprine 10 mg oral tablet) ?? esomeprazole (NexIUM 20 mg oral delayed release capsule)1 Capsules Oral (given by mouth) every day. ?? FLUoxetine (FLUoxetine (Eqv-Sarafem) 20 mg oral tablet)1 tab Oral (given by mouth) every day. ?? gabapentin (gabapentin 300 mg oral capsule)1 Capsules. ?? gabapentin (Neurontin 800 mg oral tablet)1 tab Oral (given by mouth) 3 times a day. ?? levothyroxine (levothyroxine 25 mcg (0.025 mg) oral capsule)1 Capsules Oral (given by mouth) every day. ?? magnesium gluconate (Mag-G) ?? methadone (methadone 10 mg/5 mL oral solution)5 Milliliters Oral (given by mouth) every 6 hours as needed as needed for pain. ?? sucralfate (Carafate 1 g oral tablet)1 tab Oral (given by mouth) 2 times a day. 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 Substance Use Past Tobacco Never tobacco user Tobacco Use:. Family History Anxiety: Mother. Asthma: Mother. Depression: Father. Diabetes mellitus: Father. Hypertension: Father. MEN 1 - Multiple endocrine neoplasia syndrome type 1: Father. Mental illness: Mother. Myocardial infarction: Mother and Father. Family Member(s): ?? FATHER, at age: Unknown. Cause of : Lab Results Infectious Disease?? LATEST RESULTS?? Streptococcus A -[facility]?? 09/25/22 10:06?? Not Detected? Electronically Signed on 09/25/22 11:09 AM Mariann Mckeon MD Emergency department Discharge instructions * Mariann Mckeon MD: PERFORM Event Display: ED Discharge Information Authored Date: [id number] DESIRE SANCHEZ :1995 Age:26 years Sex:Male Visit Date:09/25/2022 Primary Care Physician: JARRELL HOUSER DO Discharge Instructions We would like to thank you for allowing us to assist you with your healthcare needs. The following includes patient education materials and information regarding your injury/illness. Diagnosis from Today's Visit Viral illness Discharge Vitals Temperature??(Temporal Artery) 97.3 ??F (36.3 ??C) Heart Rate??(Peripheral) 95 Heart Rate??(Monitored) 95 Blood Pressure?? 124/77?? Height?? 70.00 in (177.800 cm) Weight??(Estimated) 222.93 lb (101.10 kg) Allergies amoxicillin??(Vomiting symptom) codeine What to Do Next You Need to Schedule the Following Appointments Follow Up with??primary care physician When:??Within 3 to 5 days You were treated today on an emergency [...] by mouth) 2 times a day Unchanged cyclobenzaprine (cyclobenzaprine 10 mg oral tablet) Unchanged esomeprazole (NexIUM 20 mg oral delayed release capsule) 1 Capsules Oral (given by mouth) Every day Unchanged FLUoxetine (FLUoxetine (Eqv-Sarafem) 20 mg oral tablet) 1 tab Oral (given by mouth) Every day Unchanged gabapentin (gabapentin 300 mg oral capsule) 1 Capsules Unchanged gabapentin (Neurontin 800 mg oral tablet) 1 tab Oral (given by mouth) 3 times a day Unchanged levothyroxine (levothyroxine 25 mcg (0.025 mg) oral capsule) 1 Capsules Oral (given by mouth) Every day Unchanged magnesium gluconate (Mag-G) Unchanged methadone (methadone 10 mg/ 5 mL oral solution) 5 Milliliters Oral (given by mouth) Every 6 hours as needed for as needed for pain Unchanged sucralfate (Carafate 1 g oral tablet) 1 tab Oral (given by mouth) 2 times a day Education Materials Viral Illness, Adult Viruses are tiny germs that can get into a person's body and cause illness. There are many different types of viruses, and they cause many types of illness. Viral illnesses can range from mild to severe. They can affect various parts of the body. Short-term conditions that are caused by a virus include colds and the flu (influenza). Long-term conditions that are caused by a virus include herpes, shingles, and HIV (human immunodeficiency virus) infection. A few viruses have been linked to certain cancers. What are the causes? Many types of viruses can cause illness. Viruses invade cells in your body, multiply, and cause theinfected cells to work abnormally or . When these cells , they release more of the virus. When this happens, you develop symptoms of the illness, and the virus continues to spread to other cells. If the virus takes over the function of the cell, it can cause the cell to divide and grow out ofcontrol. This happens when a virus causes cancer. Different viruses get into the body in different ways. You can get a virus by: ? Swallowing food or water that has come in contact with the virus (is contaminated). ? Breathing in droplets that have been coughed or sneezed into the air by an infected person. ? Touching a surface that has been contaminated with the virus and then touching your eyes, nose, or mouth. ? Being bitten by an insect or animal that carries the virus. ? Having sexual contact with a person who is infected with the virus. ? Being exposed to blood or fluids that contain the virus, either through an open cut or during a transfusion. If a virus enters your body, your body's defense system (immune system) will try to fight the virus. You may be at higher risk for a viral illness if your immune system is weak. What are the signs or symptoms? You may have these symptoms, depending on the type of virus and the location of the cells that it invades: ? Cold and flu viruses: ? Fever. ? Headache. ? Sore throat. ? Muscle aches. ? Stuffy nose (nasal congestion). ? Cough. ? Digestive system (gastrointestinal) viruses: ? Fever. ? Pain in the abdomen. ? Nausea. ? Diarrhea. ? Liver viruses (hepatitis): ? Loss of appetite. ? Tiredness. ? Skin or the white parts of your eyes turning yellow (jaundice). ? Brain and spinal cord viruses: ? Fever. ? Headache. ? Stiff neck. ? Nausea and vomiting. ? Confusion or sleepiness. ? Skin viruses: ? Warts. ? Itching. ? Rash. ? Sexually transmitted viruses: ? Discharge. ? Swelling. ? Redness. ? Rash. How is this diagnosed? This condition may be diagnosed based on one or more of the following: ? Symptoms. ? Medical history. ? Physical exam. ? Blood test, sample of mucus from your lungs (sputum sample), stool sample, or a swab of body fluidsor a skin sore (lesion). How is this treated? Viruses can be hard to treat because they live within cells. Antibiotic medicines do not treat viruses because these medicines do not get inside cells. Treatment for a viral illness may include: ? Resting and drinking plenty of fluids. ? Medicines to relieve symptoms. These can include yemm-szx-tkxkkki medicine for pain and fever, medicines for cough or congestion, and medicines to relieve diarrhea. ? Antiviral medicines. These medicines are available only for certain types of viruses. Some viral illnesses can be prevented with vaccinations. A common example is the flu shot. Follow these instructions at home: Medicines ? Take kbrp-wxi-xcxjbxj and prescription medicines only as told by your health care provider. ? If you were prescribed an antiviral medicine, take it as told by your health care provider. Do not stop taking the antiviral even if you start to feel better. ? Be aware of when antibiotics are needed and when they are not needed. Antibiotics do not treat viruses. You may get an antibiotic if your health care provider thinks that you may have, or are at riskfor, a bacterial infection and you have a viral infection. ? Do not ask for an antibiotic prescription if you have been diagnosed with a viral illness. Antibiotics will not make your illness go away faster. ? Frequently taking antibiotics when they are not needed can lead to antibiotic resistance. When thisdevelops, the medicine no longer works against the bacteria that it normally fights. General instructions ? Drink enough fluids to keep your urine pale yellow. ? Rest as much as possible. ? Return to your normal activities as told by your health care provider. Ask your health care provider what activities are safe for you. ? Keep all follow-up visits as told by your health care provider. This is important. How is this prevented? To reduce your risk of viral illness: ? Wash your hands often with soap and water for at least 20 seconds. If soap and water are not available, use hand window shade ring coverer. ? Avoid touching your nose, eyes, and mouth, especially if you have not washed your hands recently. ? If anyone in your household has a viral infection, clean all household surfaces that may have been in contact with the virus. Use soap and hot water. You may also use bleach that you have added waterto (diluted). ? Stay away from people who are sick with symptoms of a viral infection. ? Do not share items such as toothbrushes and water bottles with other people. ? Keep your vaccinations up to date. This includes getting a yearly flu shot. ? Eat a healthy diet and get plenty of rest. Contact a health care provider if: ? You have symptoms of a viral illness that do not go away. ? Your symptoms come back after going away. ? Your symptoms get worse. Get help right away if you have: ? Trouble breathing. ? A severe headache or a stiff neck. ? Severe vomiting or pain in your abdomen. These symptoms may represent a serious problem that is an emergency. Do not wait to see if the symptoms will go away. Get medical help right away. Call your local emergency services (911 in the [place] Do not drive yourself to the hospital. Summary ? Viruses are types of germs that can get into a person's body and cause illness. Viral illnesses canrange from mild to severe. They can affect various parts of the body. ? Viruses can be hard to treat. There are medicines to relieve symptoms, and there are some antiviralmedicines. ? If you were prescribed an antiviral medicine, take it as told by your health care provider. Do not stop taking the antiviral even if you start to feel better. ? Contact a health care provider if you have symptoms of a viral illness that do not go away. This information is not intended to replace advice given to you by your health care provider. Make sure you discuss any questions you have with your health care provider. Document Revised: 10/16/2020 Document Reviewed: 04/11/2020 [employer] Patient Education ?? 2021 [employer] Tests Performed Lab Test Name Test Result Date/Time Streptococcus A -[facility] Not Detected [facility] 09/25/2022 10:06 EDT Patient/Toll Transmission Worker Signature Patient Name:DESIRE SANCHEZ I have received this information and my questions have been answered. Patient/Toll Transmission Worker Name: Patient/Toll Transmission Worker Signature: Relationship to Patient: Witness Name/Signature: Date: Electronically Signed on: 09/25/2022 10:49 EDTSigned by: Patient Care team information Care Team Personnel Name: JARRELL HOUSER DO Position: No Access Member Role: Primary Care Physician Address: Address: [address] [address]- [place] Name: Mariann Mckeon MD Position: Physician Member Role: Attending Physician Address: Address: [address] [place] [id number] Name: Ana Camacho Position: Nurse Member Role: Registered Nurse Care Team Related Persons Name: MILLER SANCHEZ
--- OUTSIDE RECORDS SUMMARY | 2023-05-14 12:34 | XMS_ITS | Continuity of Care Document ---
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 Name Role Phone JARRELL HOUSER DO Primary Care Physician Encounter LTTL_ID FIN [id number] [id number] Date(s): 04/08/23 - 04/08/23 [facility] [address] [place] [address]- Encounter Diagnosis Musculoskeletal chest pain(Discharge Diagnosis) - 04/08/23 Other chest pain(Final) - Contact with and (suspected) exposure to COVID-19(Final) - Discharge Disposition: Home or Self Care [...] 0 Refill(s) Start Date: 09/22/22 Status: Ordered dicyclomine 20 mg oral tablet TAKE ONE TABLET BY MOUTH FOUR TIMES A DAY NEEDED FOR ABDOMINAL PAIN Start Date: 04/08/23 Status: Ordered gabapentin 300 mg oral capsule [...] Daily, # 30 cap, 0 Refill(s), Pharmacy: [id number], 178, cm, 02/28/23 14:26:00 EDT, Height/Length Dosing, 104, kg, 02/28/23 14:26:00 EDT, Weight Dosing Start Date: 02/28/23 Status: Ordered Phenergan 12.5 mg oral tablet TAKE ONE TABLET BY MOUTH THREE TIMES A DAY FOR 5 DAYS NEEDED FOR NAUSEA /VOMITING Start Date: 04/08/23 Status: Ordered Tums 500 mg oral tablet, chewable 500 mg = 1 tab, Chewed, BID, # 60 tab, 0 Refill(s) Start Date: 09/22/22 Status: Ordered Mental Status 04/08/23 Eye Opening Response [place] Spontaneous ly Best Verbal Response [place] Oriented Best Motor Response Arthur Obeys comman ds [place] Coma Score 15 Problem List Condition Confirmation [...] Parathyroid Completed Results Laboratory List Name Date SARS-CoV-2 (Covid-19) AG ([facility]) POCT Most recent to oldest [Reference Range]: 1 SARS-CoV or CoV-2 (COVID-19) Ag ([facility]) [Negative] Negative (04/08/23 10:27 AM) Employed in healthcare? Unknown *NA* (04/08/23 10:27 AM) Symptomatic as defined by CDC? Unknown *NA* (04/08/23 10:27 AM) Date of onset (Lab) Unknown *NA* (04/08/23 10:27 AM) Hospitalized due to COVID-19? Unknown *NA* (04/08/23 10:27 AM) In ICU? Unknown *NA* (04/08/23 10:27 AM) Group care resident? Unknown *NA* (04/08/23 10:27 AM) status? Unknown *NA* (04/08/23 10:27 AM) Vital Signs Most recent to oldest [Reference Range]: 1 Temperature Oral [35.8-37.3 Deg C] 37.4 Deg C *HI* (04/08/23 11:24 AM) Peripheral Pulse Rate [60-100 bpm] 91 bp m (04/08/23 11:24 AM) Respiratory Rate [12-24 br/min] 18 br/mi n (04/08/23 11:24 AM) Blood Pressure [90-140/60-90 mmHg] 126/8 1mmHg (04/08/23 11:24 AM) Mean Arterial Pressure, Cuff [65-140 mmH g] 96 mmHg (04/08/23 11:24 AM) Weight 106.00 kg (04/08/23 11:24 AM) Weight Dosing 106.00 kg (04/08/23 11:40 AM) Height 178.000 cm (04/08/23 11:24 AM) Height/Length Dosing 178.000 cm (04/08/23 11:40 AM) Body Mass Index 33.000 kg/m2 (04/08/23 11:24 AM) Social History Social History Type Response Tobacco Never tobacco user T obacco Use:. Sex Hospital Discharge Instructions Patient Education 04/08/2023 11:13:15 Chest Wall Pain Chest Wall Pain Chest wall pain is pain in or around the bones and muscles of your chest. Sometimes, an injury causes this pain. Excessive coughing or overuse of arm and chest muscles may also cause chest wall pain.Sometimes, the cause may not be known. This pain may take several weeks or longer to get better. Follow these instructions at home: Managing pain, stiffness, and swelling ??? If directed, put ice on the painful area: ??? Put ice in a plastic bag. ??? Place a towel between your skin and the bag. ??? Leave the ice on for 20 minutes, 2???3 times per day. Activity ??? Rest as told by your health care provider. ??? Avoid activities that cause pain. These include any activities that use your chest muscles or your abdominal and side muscles to lift heavy items. Ask your health care provider what activities are safe for you. General instructions ??? Take qzik-qeq-xetlnwl and prescription medicines only as told by your health care provider. ??? Do not use any products that contain nicotine or tobacco, such as cigarettes, e-cigarettes, andchewing tobacco. These can delay healing after injury. If you need help quitting, ask your health care provider. ??? Keep all follow-up visits as told by your health care provider. This is important. Contact a health care provider if: ??? You have a fever. ??? Your chest pain becomes worse. ??? You have new symptoms. Get help right away if: ??? You have nausea or vomiting. ??? You feel sweaty or light-headed. ??? You have a cough with mucus from your lungs (sputum) or you cough up blood. ??? You develop shortness of breath. These symptoms may represent a serious problem that is an emergency. Do not wait to see if the symptoms will go away. Get medical help right away. Call your local emergency services (911 in the [place] Do not drive yourself to the hospital. Summary ??? Chest wall pain is pain in or around the bones and muscles of your chest. ??? Depending on the cause, it may be treated with ice, rest, medicines, and avoiding activities that cause pain. ??? Contact a health care provider if you have a fever, worsening chest pain, or new symptoms. ??? Get help right away if you feel light-headed or you develop shortness of breath. These symptomsmay be an emergency. This information is not intended to replace advice given to you by your health care provider. Make sure you discuss any questions you have with your health care provider. Document Revised: 08/17/2021 Document Reviewed: 08/17/2021 Elsevier Patient Education ?? 2022 [employer]. Physician Emergency department Note * Berto Davis MD: PERFORM Event Display: ED Note Physician Authored Date: [id number] DESIRE SANCHEZ :1995 Age:27 years Sex:Male Visit Date:04/08/2023 Primary Care Physician: JARRELL HOUSER DO Basic Information Time Seen: Berto Davis MD / 04/08/2023 11:28 Chief Complaint pt reports left cough pain started yesterday with cough seen at [facility] now pain 6/10 radiates to leftjaw History Of Present Illness: Patient states that he has been having dry cough for several days.?? Yesterday he also began to have some??irritation to the chest wall??with palpation and when he takes a deep cough. ??Denies fever chills resting chest pain or other problems Review of Systems: Review of systems negative other than that stated above Physical Exam Vitals & Measurements T:??37.4?C ??(Oral)?? HR:??91??(Peripheral)?? RR:??18?? BP:??126/81?? SpO2:??98%?? HT:??178.000??cm?? WT:??106.00??kg?? BMI:??33.000?? Pain Score:??6?? General: Alert and oriented, well nourished, no acute distress. Eye: PERRL, EOMI, normal conjunctiva. HENT: Normocephalic,??normal hearing, moist oral mucosa, no scleral icterus, . Neck: Supple, non-tender, no carotid bruits, no JVD, no lymphadenopathy. No rigidity Lungs: Clear to auscultation and percussion, non-labored respiration. Heart: Normal rate, regular rhythm, no murmur, gallop or edema. ??There is some tenderness to palpation of the left chest wall. ??No??erythema redness swelling nodularity or other abnormalities Abdomen: Soft, non-tender, non-distended, normal bowel sounds, no masses. Musculoskeletal: Normal range of motion and strength, no tenderness or swelling. Skin: Skin is warm, dry and appropriate for ethnicity, no rashes or lesions. Neurologic: Awake, alert and oriented X4, CN II-XII intact. Psychiatric: Cooperative, appropriate mood and affect. Procedure No Qualifying Data Reexamination/Reevaluation Patient is well-known to the department. ??He does come in frequently for??pain??particularly chestpain??and anxiety. ??I felt that he had multiple work-ups recently with??x-rays and blood work and EKG and I felt that this musculoskeletal pain??did not warrant further evaluation. ??I??believe I did reassure the patient that this is musculoskeletal??pain which could be??treated with??ikte-cvv-jdbiecy medications. ??He agrees will follow-up with regular doctor return as needed Assessment/Plan 1.??Musculoskeletal chest pain??R07.89 Orders: CV Electrocardiogram 12 Lead, 04/08/23 12:02:00 EDT, Stat, Reason: Chest Pain, Stop date and time 04/08/23 12:02:00 EDT, ORD_SET_REQ_DT_RANGE, Siri's Internal Person Id Discharge Patient, 04/08/23 12:12:00 EDT Review Orders for Potential Auths., 04/08/23 12:02:13 EDT Patient Education Chest Wall Pain Medication Reconciliation Unchanged acetaminophen (acetaminophen 325 mg [...] by mouth) 2 times a day. ?? dicyclomine (dicyclomine 20 mg oral tablet)TAKE ONE TABLET BY MOUTH FOUR TIMES A DAY NEEDED FOR ABDOMINAL PAIN. ?? esomeprazole (NexIUM 20 mg oral delayed [...] (given by mouth) every day. Refills: 0. ?? promethazine (Phenergan 12.5 mg oral tablet)TAKE ONE TABLET BY MOUTH THREE TIMES A DAY FOR 5 DAYS NEEDED FOR NAUSEA /VOMITING. Problem List/Past Medical History Ongoing Abdominal pain [...] age: Unknown. Cause of : Diagnostic Results ECG Sinus rhythm at 79 no acute changes Electronically Signed on 04/08/23 12:53 PM Berto aDvis MD Emergency department Discharge instructions * Berto Davis MD: PERFORM Event Display: ED Discharge Information Authored Date: [id number] DESIRE SANCHEZ :1995 Age:27 years Sex:Male Visit Date:04/08/2023 Primary Care Physician: JARRELL HOUSER DO Discharge Instructions We would like to thank you for allowing us to assist you with your healthcare needs. The following includes patient education materials and information regarding your injury/illness. Diagnosis from Today's Visit Musculoskeletal chest pain Discharge Vitals Temperature??(Oral) 99.3 ??F (37.4 ??C) Heart Rate??(Peripheral) 91 Respiratory Rate?? 18 Blood Pressure?? 126/81?? Height?? 70.08 in (178.000 cm) Weight?? 233.73 lb (106.00 kg) BMI?? 33.000 Allergies amoxicillin??(Vomiting symptom) penicillin codeine What to Do Next Instructions from Your Care Team OTC medication as directed for pain. Followup with regular doctor or return for worsening symptoms Upcoming Scheduled Appointments 2022 9:30 AM EDT ?? Where: [facility] Main OR Status: Confirmed You [...] by mouth) 2 times a day Unchanged dicyclomine (dicyclomine 20 mg oral tablet) TAKE ONE TABLET BY MOUTH FOUR TIMES A DAY NEEDED FOR ABDOMINAL PAIN ?? Unchanged esomeprazole (NexIUM 20 mg oral delayed [...] of breath Chest pain due to GERD Unchanged promethazine (Phenergan 12.5 mg oral tablet) TAKE ONE TABLET BY MOUTH THREE TIMES A DAY FOR 5 DAYS NEEDED FOR NAUSEA / VOMITING ?? Education Materials Chest Wall Pain Chest wall pain is pain in or around the bones and muscles of your chest. Sometimes, an injury causes this pain. Excessive coughing or overuse of arm and chest muscles may also cause chest wall pain.Sometimes, the cause may not be known. This pain may take several weeks or longer to get better. Follow these instructions at home: Managing pain, stiffness, and swelling ? If directed, put ice on the painful area: ? Put ice in a plastic bag. ? Place a towel between your skin and the bag. ? Leave the ice on for 20 minutes, 2???3 times per day. Activity ? Rest as told by your health care provider. ? Avoid activities that cause pain. These include any activities that use your chest muscles or your abdominal and side muscles to lift heavy items. Ask your health care provider what activities are safe for you. General instructions ? Take onxp-zbs-tysuvkw and prescription medicines only as told by your health care provider. ? Do not use any products that contain nicotine or tobacco, such as cigarettes, e- cigarettes, and chewing tobacco. These can delay healing after injury. If you need help quitting, ask your health care provider. ? Keep all follow-up visits as told by your health care provider. This is important. Contact a health care provider if: ? You have a fever. ? Your chest pain becomes worse. ? You have new symptoms. Get help right away if: ? You have nausea or vomiting. ? You feel sweaty or light-headed. ? You have a cough with mucus from your lungs (sputum) or you cough up blood. ? You develop shortness of breath. These symptoms may represent a serious problem that is an emergency. Do not wait to see if the symptoms will go away. Get medical help right away. Call your local emergency services (911 in the [place] Do not drive yourself to the hospital. Summary ? Chest wall pain is pain in or around the bones and muscles of your chest. ? Depending on the cause, it may be treated with ice, rest, medicines, and avoiding activities that cause pain. ? Contact a health care provider if you have a fever, worsening chest pain, or new symptoms. ? Get help right away if you feel light-headed or you develop shortness of breath. These symptoms maybe an emergency. This information is not intended to replace advice given to you by your health care provider. Make sure you discuss any questions you have with your health care provider. Document Revised: 08/17/2021 Document Reviewed: 08/17/2021 Elsevier Patient Education ?? 2022 [employer] Tests Performed Lab Test Name Test Result Date/Time SARS-CoV or CoV-2 (COVID-19) Ag ([facility]) Negative 04/08/2023 10:27 EDT Employed in healthcare? Unknown 04/08/2023 10:27 EDT Symptomatic as defined by CDC? Unknown 04/08/2023 10:27 EDT Date of onset (Lab) Unknown 04/08/2023 10:27 EDT Hospitalized due to COVID-19? Unknown 04/08/2023 10:27 EDT In ICU? Unknown 04/08/2023 10:27 EDT Group care resident? Unknown 04/08/2023 10:27 EDT status? Unknown 04/08/2023 10:27 EDT Patient/Director Underwriter Sales Signature Patient Name:DESIRE SANCHEZ I have received this information and my questions have been answered. Patient/Director Underwriter Sales Name: Patient/Director Underwriter Sales Signature: Relationship to Patient: Witness Name/Signature: Date: Electronically Signed on: 04/08/2023 12:15 EDTSigned by:EDGAR Patient Care team information Care Team Personnel Name: JARRELL HOUSER DO Position: No Access Member Role: Primary Care Physician Address: Address: [address] [id number] Name: Berto Davis MD Position: Physician Member Role: ED Physician Address: Address: [address] [place] [id number] Name: Giulia Aviles Position: Nurse Member Role: ED Nurse Care Team Related Persons Name: ARY SANCHEZ Name: MILLER SANCHEZ
--- OUTSIDE RECORDS SUMMARY | 2023-05-14 12:34 | XMS_ITS | Continuity of Care Document ---
Author Name Unknown Organization [facility] Address [address] [place] [id number] Care Team Providers Care Head Concierge Name Role Phone JARRELL VIVAR DO Primary Care Physician Encounter [facility] FIN NBR [phone] Date(s): 04/25/23 - 04/25/23 [facility] [address], [place] [address] Encounter Diagnosis Pneumonia(Discharge Diagnosis) - 04/25/23 Discharge Disposition: Home or Self Care Attending Physician: Mp Knott MD Admitting Physician: Mp Knott MD Allergies, Adverse Reactions, Alerts Substance Reaction Severity Status codeine Unknown Active amoxicillin Vomiting symptom Moderate Active penicillin Moderate Active Assessment and Plan Diagnostic Tests Pending * Troponin-I High Sensitivity 04/25/23 Functional Status 04/25/23 Other exposure to Infectious Disease Exp osure to respiratory illness of unknown etiology Medications acetaminophen 325 mg oral capsule 325 [...] hr, # 14 tab, 0 Refill(s), Pharmacy: [facility], 178, cm, 04/25/23 7:14:00 EST, Height, [...] 14 tab, 0 Refill(s), 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, 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[facility], 178, cm, 04/25/23 7:14:00 EST, Height, [...] Daily, # 30 cap, 0 Refill(s), Pharmacy: [facility], 178, cm, 02/28/23 14:26:00 EDT, Height/Length [...] Start Date: 09/22/22 Status: Ordered Mental Status 04/25/23 Eye Opening Response [place] Spontaneous ly Best Motor Response Arthur Obeys comman ds Problem List Condition Confirmation Course Effective Dates [...] Laboratory List Name Date CBC w/ Diff 04/25/23 Comprehensive Metabolic Panel (CMP) 04/16 Automated Diff 04/25/23 Most recent to oldest [Reference Range]: 1 WBC [4.8-10.8 K/mcL] 6.8 K/mcL (04/25/23 8:32 AM) RBC [4.70-6.10 Million/mcL] 3.81 Million /mcL *LOW* (04/25/23 8:32 AM) Neutro Auto [42.2-75.2 %] 54.9 % (04/25/23 8:32 AM) Lymph Auto [20.5-51.1 %] 27.3 % (04/25/23 8:32 AM) Aurora Auto [1.7-9.3 %] 11.3 % *HI* (04/25/23 8:32 AM) Basophil Auto [0.0-0.8 %] 0.6 % (04/25/23 8:32 AM) BUN [8-26 mg/dL] 14 mg/dL (04/25/23 8:32 AM) Glucose Level [74-106 mg/dL] 93 mg/dL (04/25/23 8:32 AM) Potassium Level [3.5-5.1 mmol/L] 3.9 mmo l/L (04/25/23 8:32 AM) Baso Absolute [0.0-0.2 K/mcL] 0.0 K/mcL (04/25/23 8:32 AM) MCV [80.0-94.0 fL] 94.2 fL *HI* (04/25/23 8:32 AM) AST [15-41 IntlUnit/L] 24 IntlUnit/L (04/25/23 8:32 AM) ALT [17-63 IntlUnit/L] 38 IntlUnit/L (04/25/23 8:32 AM) MCHC [32.0-37.0 g/dL] 33.1 g/dL (04/25/23 8:32 AM) Osmolality [275-295 mOsm/kg] 274 mOsm/kg *LOW* (04/25/23 8:32 AM) Sodium Level [134-143 mmol/L] 137 mmol/L (04/25/23 8:32 AM) Lymph Absolute [1.2-3.4 K/mcL] 1.9 K/mcL (04/25/23 8:32 AM) Hct [42.0-52.0 %] 35.9 % *LOW* (04/25/23: AM) Calcium Level [8.9-10.3 mg/dL] 8.8 mg/dL *LOW* (04/25/23 8:32 AM) Aurora Absolute [0.1-0.6 K/mcL] 0.8 K/mcL *HI* (04/25/23 8:32 AM) Albumin Level [3.5-5.0 g/dL] 3.7 g/dL (04/25/23 8:32 AM) Protein Total [6.5-8.1 g/dL] 7.6 g/dL (04/25/23 8:32 AM) MCH [27.0-31.0 pg] 31.2 pg *HI* (04/25/23 8:32 AM) Neutro Absolute [1.4-6.5 K/mcL] 3.8 K/mc L (04/25/23 8:32 AM) Bilirubin Total [0.2-1.2 mg/dL] 0.5 mg/d L (04/25/23 8:32 AM) Hgb [14.0-18.0 g/dL] 11.9 g/dL *LOW* (04/25/23 8:32 AM) Alk Phos [38-130 IntlUnit/L] 87 IntlUnit /L (04/25/23 8:32 AM) MPV [7.4-10.4 fL] 11.1 fL *HI* (04/25/23 8:32 AM) Platelets [130-400 K/mcL] 249 K/mcL (04/25/23 8:32 AM) CO2 [22-32 mmol/L] 31 mmol/L (04/25/23 8:32 AM) Eos Absolute [0.0-0.2 K/mcL] 0.4 K/mcL *HI* (04/25/23 8:32 AM) Chloride Level [98-111 mmol/L] 98 mmol/L (04/25/23 8:32 AM) RDW-CV [11.5-14.5 %] 12.5 % (04/25/23 8:32 AM) A/G Ratio [1.0-2.5 g/dL] 0.9 g/dL *LOW* (04/25/23 8:32 AM) BUN/Creat Ratio [8.0-20.0] 9.7 (04/25/23 8:32 AM) Globulin [2.3-3.5 g/dL] 3.9 g/dL *HI* (04/25/23 8:32 AM) Imm Gran Absolute [0.00-0.02 K/mcL] 0.02 K/mcL (04/25/23 8:32 AM) Imm Gran Auto [0.0-0.5 %] 0.3 % (04/25/23 8:32 AM) Creatinine Level [0.61-1.24 mg/dL] 1.44 mg/dL *HI* (04/25/23 8:32 AM) Anion Gap [3.0-12.0] 8.0 (04/25/23 8:32 AM) Eos, Auto [0.00-3.00 %] 5.60 % *HI* (04/25/23 8:32 AM) eGFR CKD-EPI [>=60 mL/min/1.73 m2] 67 mL /min/1.73 m2 (04/25/23 8:32 AM) Radiology Reports * Exam Date Time Procedure Performing Provider Status 04/25/23 8:[address] Angio Chest Brenda Cano; Alex ( Verified) Notes: (CT Angio Chest) Reason For Exam: chest pain CT Angio Chest EXAM DESCRIPTION: CT Angio Chest N/A INDICATION: CHEST PAIN TECHNIQUE: All CT scans at this facility use at least one of these dose optimization techniques: Automated exposure control; mA and/or kV adjustment per patient size (includes targeted exams where dose is matched to clinical indication); or iterative reconstruction. CT angiography examination of the chest with thin section axial images including sagittal and coronal MPR images performed on a separate workstation under concurrent supervision. 100 cc of Isovue 370 contrast was utilized Examination is limited by timing of contrast bolus. COMPARISON: None FINDINGS: Normal opacification of the right ventricular outflow tract, main pulmonary arteries and segmental pulmonary arteries with no evidence of pulmonary embolism. No evidence of thoracic aortic dissection. Patchy areas of infiltrate in the right upper lobe and right middle lobe with minimal nodular infiltrate in the lingula suspicious for areas of pneumonia. No significant emphysematous changes. No central endobronchial filling defect identified. No pleural effusion or pneumothorax No mediastinal, hilar or axillary adenopathy. No pericardial effusion. Normal caliber thoracic aorta No mass or adenopathy in the visualized upper abdomen. No suspicious regional osseous lesions. IMPRESSION: No evidence of pulmonary embolism Patchy areas of infiltrate most pronounced in the right upper lobe suspicious for pneumonia. JOB #: [id number] Final Signed by: John Burciaga MD Signed (Electronic Signature): 04/25/2023 8:54 am Vital Signs Most recent to oldest [Reference Range]: 1 2 3 Temperature Oral [35.8-37.3 Deg C] 37.2 Deg C (04/25/23 6:53 AM) Peripheral Pulse Rate [60-100 bpm] 80 bpm (04/25/23 10:35 AM) 88 bpm (04/25/23 10:04 AM) 83 bpm (04/25/23 9:15 AM) Heart Rate Monitored [60-100 bpm] 80 bpm (04/25/23 10:35 AM) 84 bpm (04/25/23 10:04 AM) 81 bpm (04/25/23 9:15 AM) Respiratory Rate [12-24 br/min] 14 br/min (04/25/23 10:35 AM) 18 br/min (04/25/23 10:04 AM) 12 br/min (04/25/23 9:15 AM) Blood Pressure [90-140/60-90 mmHg] 107/61mmHg (04/25/23 9:15 AM) 117/79mmHg (04/25/23 7:30 AM) 116/49mmHg (04/25/23 6:53 AM) Mean Arterial Pressure, Cuff [70-110 mmHg] 76 mmHg (04/25/23 9:15 AM) 92 mmHg (04/25/23 7:30 AM) 71 mmHg (04/25/23 6:53 AM) Mean Arterial Pressure Cuff 74 mmHg (04/25/23 9:15 AM) 72 mmHg (04/25/23 9:00 AM) 89 mmHg (04/25/23 7:30 AM) Weight Dosing 104.33 kg (04/25/23 7:14 AM) Weight Estimated 104.33 kg (04/25/23 6:53 AM) Height 178.000 cm (04/25/23 7:14 AM) Height/Length Estimated 178.000 cm (04/25/23 6:53 AM) Social History Social History Type Response Tobacco Never tobacco user T obacco Use:. Sex Hospital Discharge Instructions Patient Education 04/25/2023 08:59:29 Community-Acquired Pneumonia, Adult Community-Acquired Pneumonia, Adult Pneumonia is a lung infection that causes inflammation and the buildup of mucus and fluids in the lungs. This may cause coughing and difficulty breathing. Community-acquired pneumonia is pneumonia that develops in people who are not, and have not recently been, in a hospital or other health care facility. Usually, pneumonia develops as a result of an illness that is caused by a virus, such as the commoncold and the flu (influenza). It can also be caused by bacteria or fungi. While the common cold andinfluenza can pass from person to person (are contagious), pneumonia itself is not considered contagious. What are the causes? This condition may be caused by: ??? Viruses. ??? Bacteria. ??? Fungi, such as molds or mushrooms. What increases the risk? The following factors may make you more likely to develop this condition: ??? Having certain medical conditions, such as: ??? A long-term (chronic) disease, which may include chronic obstructive pulmonary disease (COPD), asthma, heart failure, cystic fibrosis, diabetes, kidney disease, sickle cell disease, and human immunodeficiency virus (HIV). ??? A condition that increases the risk of breathing in (aspirating) mucus and other fluids from your mouth and nose. ??? A weakened body defense system (immune system). ??? Having had your spleen removed (splenectomy). The spleen is the organ that helps fight germs and infections. ??? Not cleaning your teeth and gums well (poor dental hygiene). ??? Using tobacco products. ??? Traveling to places where germs that cause pneumonia are present. ??? Being near certain animals, or animal habitats, that have germs that cause pneumonia. ??? Being older than 65 years of age. What are the signs or symptoms? Symptoms of this condition include: ??? A dry cough or a wet (productive) cough. ??? A fever. ??? Sweating or chills. ??? Chest pain, especially when breathing deeply or coughing. ??? Fast breathing, difficulty breathing, or shortness of breath. ??? Tiredness (fatigue). ??? Muscle aches. How is this diagnosed? This condition may be diagnosed based on your medical history or a physical exam. You may also havetests, including: ??? Chest X-rays. ??? Tests of the level of oxygen and other gases in your blood. ??? Tests of: ??? Your blood. ??? Mucus from your lungs (sputum). ??? Fluid around your lungs (pleural fluid). ??? Your urine. If your pneumonia is severe, other tests may be done to learn more about the cause. How is this treated? Treatment for this condition depends on many factors, such as the cause of your pneumonia, your medicines, and other medical conditions that you have. For most adults, pneumonia may be treated at home. In some cases, treatment must happen in a hospital and may include: ??? Medicines that are given by mouth (orally) or through an IV, including: ??? Antibiotic medicines, if bacteria caused the pneumonia. ??? Medicines that kill viruses (antiviral medicines), if a virus caused the pneumonia. ??? Oxygen therapy. Severe pneumonia, although rare, may require the following treatments: ??? Mechanical ventilation.This procedure uses a machine to help you breathe if you cannot breathe well on your own or maintain a safe level of blood oxygen. ??? Thoracentesis. This procedure removes any buildup of pleural fluid to help with breathing. Follow these instructions at home: Medicines ??? Take [id number] and prescription medicines only as told by your health care provider. ??? Take cough medicine only if you have trouble sleeping. Cough medicine can prevent your body from removing mucus from your lungs. ??? If you were prescribed an antibiotic medicine, take it as told by your health care provider. Donot stop taking the antibiotic even if you start to feel better. Lifestyle ??? Do not drink alcohol. ??? Do not use any products that contain nicotine or tobacco, such as cigarettes, e-cigarettes, andchewing tobacco. If you need help quitting, ask your health care provider. ??? Eat a healthy diet. This includes plenty of vegetables, fruits, whole grains, low-fat dairy products, and lean protein. General instructions ??? Rest a lot and get at least 8 hours of sleep each night. ??? Sleep in a partly upright position at night. Place a few pillows under your head or sleep in a reclining chair. ??? Return to your normal activities as told by your health care provider. Ask your health care provider what activities are safe for you. ??? Drink enough fluid to keep your urine pale yellow. This helps to thin the mucus in your lungs. ??? If your throat is sore, gargle with a salt???water mixture 3???4 times a day or as needed. To make a salt???water mixture, completely dissolve ?1 tsp (3???6 g) of salt in 1 cup (237 mL) of warm water. ??? Keep all follow-up visits as told by your health care provider. This is important. How is this prevented? You can lower your risk of developing community-acquired pneumonia by: ??? Getting the pneumonia vaccine. There are different types and schedules of pneumonia vaccines. Ask your health care provider which option is best for you. Consider getting the pneumonia vaccine if: ??? You are older than 65 years of age. ??? You are 19???65 years of age and are receiving cancer treatment, have chronic lung disease, or have other medical conditions that affect your immune system. Ask your health care provider if this applies to you. ??? Getting your influenza vaccine every year. Ask your health care provider which type of vaccine is best for you. ??? Getting regular dental checkups. ??? Washing your hands often with soap and water for at least 20 seconds. If soap and water are notavailable, use hand membership director. Contact a health care provider if you have: ??? A fever. ??? Trouble sleeping because you cannot control your cough with cough medicine. Get help right away if: ??? Your shortness of breath becomes worse. ??? Your chest pain increases. ??? Your sickness becomes worse, especially if you are an older adult or have a weak immune system. ??? You cough up blood. These symptoms may represent a serious problem that is an emergency. Do not wait to see if the symptoms will go away. Get medical help right away. Call your local emergency services (911 in the [place] Do not drive yourself to the hospital. Summary ??? Pneumonia is an infection of the lungs. ??? Community-acquired pneumonia develops in people who have not been in the hospital. It can be caused by bacteria, viruses, or fungi. ??? This condition may be treated with antibiotics or antiviral medicines. ??? Severe pneumonia may require a hospital stay and treatment to help with breathing. This information is not intended to replace advice given to you by your health care provider. Make sure you discuss any questions you have with your health care provider. Document Revised: 03/14/2020 Document Reviewed: 03/14/2020 [employer] Patient Education ?? 2022 [employer]. Follow Up Care 04/25/2023 06:53:36 With:JARRELL VIVAR DO Address: [facility] [address] [place] [id number]- When:1 week Comments:Your CT imaging??demonstrated findings consistent with developing pneumonia in the right upper/right middle lobe.?? He also had??a draining small abscess in the inguinal crease on your??right groin region.?? To cover for both of these I will start you on cefpodoxime 200 mg twice daily for 7 days aswell as doxycycline 100 mg twice daily for 7 days. ??Please make arrangements to follow- up with your??primary care physician next week for continuity of care. ??Return to the emergency department anyincreased work of breathing, persistent fevers/chills,??intractable nausea/vomiting or for any concerns of new or worsening illness. Physician Emergency department Note * Bryan Sheldon, DO: PERFORM Event Display: ED Note Physician Authored Date: [id number] PEDRO PABLO SANCHEZ :1995 Age:27 years Sex:Male Visit Date:04/25/2023 Primary Care Physician: JARRELL VIVAR DO 9:00 AM: Signout from overnight ED attending Dr. Knott pending troponin results and final disposition.?? Patient was primarily seen by Dr. Knott and final disposition was requested of me. ?? I evaluated patient at bedside who is resting comfortably playing on his cell phone.?? Vital signs unremarkable.?? Patient remains afebrile.?? Blood pressure registering 112/73, heart rate 88 bpm, saturating 97% on room air.?? Physical examination reveals some mild subtle consolidative findings in the right upper/right middle lobe on auscultation otherwise clear.?? There was a very small drainingabscess at the inguinal crease of the RLE with minimal surrounding cellulitis. ?? Discussed CT findings which revealed patchy areas of infiltrate most pronounced in the right upper lobe suspicious for pneumonia.?? Screening laboratory work-up revealed white blood cell count 6.8, H&H 11.9 and 35.9 respectively, platelet count 249.?? Chemistries reveal sodium 137, potassium 3.9, chloride 98, CO2 31, BUN 14, creatinine 1.44, glucose 93 mg/dL.?? Normal liver function testing.?? Of note the patient's creatinine is up somewhat although upon review in the past the range has been between 1.10 and 1.51. ?? EKG 7:06 AM: Was reviewed as follows: Normal sinus rhythm at 84 bpm; normal axis; normal intervals;no objective evidence of acute ischemia or infarction. ?? There is no objective evidence of acute ischemia or infarction on EKG or high- sensitivity troponin testing.?? Patient was asked to discontinue the azithromycin.?? In lieu of azithromycin I would start the patient on doxycycline 100 mg twice daily for 7 days as well as Augmentin 875/125 mg twice daily x 7 days.?? This combination should cover for the developing cellulitis in the right inguinal crease as well as for the community-acquired pneumonia.?? Instructed patient to follow-up with his primary care physician Dr. Vivar preferably next week for continuity of care.?? All questions were answered.?? Pedro Pablo expressed understanding of disposition and was grateful for discharge home. Electronically Signed on 04/25/23 09:54 AM Bryan Sheldon DO * Bryan Sheldon DO: PERFORM Event Display: ED Note Physician Authored Date: [id number] Patient is allergic to??amoxicillin, penicillin, and codeine. ??This precludes the ability to give him??Augmentin.?? Alternatively, to??cover both cellulitis and community-acquired pneumonia??I will start him on cefpodoxime 200 mg twice daily??for 7 days as well as continue with the??doxycycline asmentioned above. Electronically Signed on 04/25/23 09:58 AM Bryan Sheldon, * Mp Knott MD: PERFORM Event Display: ED Note Physician Authored Date: [id number] PEDRO PABLO SANCHEZ :1995 Age:27 years Sex:Male Visit Date:04/25/2023 Primary Care Physician: JARRELL VIVAR DO Basic Information Time Seen: Bryan Sheldon DO / 04/25/2023 09:09 Chief Complaint Pt comes to ER with diff. breathing, painful to take deep breath, was seen at . yesterday was told ??he might have pneumonia and was given ABX, does not like answer and does not remember of ABX, also, woke up with R groin pain, there is lump. 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 ??Of note patient denies any??significant cough, sputum, measured fevers. 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 Patient has had multiple ED visits over the year and??approximately 8??other CT scans though never of his chest. ??I did CT him a few months back when he came in with neck discomfort and his cancer history; he is also had multiple CT scans of his abdomen??and pelvis.?? Patient denies a history of asthma.?? He denies smoking. ??Denies substance use or abuse.?? No leg swelling or pain.?? No recent travel,??surger ies etc. Review of Systems: Review of Systems: Constitutional: [No fevers] Eye: [No acute visual complaints, no eye discharge] ENT: [No ear pain, nasal congestion, sore throat] Respiratory: [No shortness of breath, no cough] Cardiovascular: [No Chest pain] Gastrointestinal: [No nausea, vomiting, or diarrhea. No rectal bleeding or melena] Genitourinary: [No dysuria; no hematuria] Musculoskeletal: [No acute back pain, neck pain, joint pain,] Integumentary: Patient also has complaints of a foreign uncle in his right groin that is tender from which he squeezed some pus??yesterday. Neurologic: [No focal complaints.??No LOC] ?? Physical Exam: General: [Alert, well nourished, no acute distress].?Pulse ox??with recumbency 90 to 92%, improves with sitting upright deep breaths??afebrile, not tachycardic Eye: [PERRL, EOMI, normal conjunctiva]. HENT: [Normocephalic, normal hearing, moist oral mucosa, no scleral icterus, no nasal discharge].?? Neck: [Ranging neck, normal inspection].?? Lungs: [Clear, non-labored respiration, no tachypnea].?? Heart: [Normal rate, regular rhythm, no murmurs]. Abdomen: [Soft, non-tender, non-distended].?? Musculoskeletal: [Normal range of motion and strength, no tenderness or swelling]. Skin: [Skin is warm, no rashes]. Neurologic: [Awake, alert and oriented X4, normal tone, moving all extremities with good strength].[Ambulation intact]. Psychiatric: [Cooperative, appropriate mood and affect]. Physical Exam Vitals & Measurements T:??37.2?C ??(Oral)?? HR:??92??(Peripheral)?? HR:??92??(Monitored)?? RR:??17?? BP:??117/79?? SpO2:??95%?? HT:??178.000??cm?? WT:??104.33??kg??(Estimated)?? Pain Score:??5?? O2 Therapy:??Room air?? Procedure No Qualifying Data Assessment/Plan Ordered: Troponin-I High Sensitivity, Blood, Stat, 04/25/23 7:44:00 EST, Once, Nurse collect EKG shows no evidence of acute ischemia, NSR.?? Nontoxic-appearing but complaining of severe??chestpain with deep breathing and does have a cancer history.?? His history??is somewhat atypical for pneumonia given his lack of complaints of cough congestion fevers etc. ??He did have a white count??yes terday at outside hospital who I spoke to. ??He also had COVID/flu RSV testing which was negative.?? I performed a CT angio of his chest given his complaint,??borderline hypoxia, cancer history?this shows??patchy infiltrate in the??upper and middle lobe.? Awaiting lab results??including troponin, CBC and electrolytes.?? Patient needs??ambulation testing and??evaluation for oxygenation. ??Signed out to Dr. Sheldon awaiting lab results.?? I feel patient should be switched on his antibiotics to??regimen of doxycycline plus??Augmentin?this would cover his??furuncle/skin infection in his groin??as well as give him more significant??pneumonia coverage.?? Case signed out to Dr. Sheldon at 9:30 AM. Medication Reconciliation Unchanged acetaminophen (acetaminophen 325 mg [...] Unknown. Cause of : Diagnostic Results CT Angio Chest 04/25/2023 08:[address] Angio Chest ?? 04/25/23 08:54:15 EXAM DESCRIPTION: CT Angio Chest ?? N/A ?? INDICATION: CHEST PAIN ?? TECHNIQUE: All CT scans at this facility use at least one of these dose optimization techniques: Automated exposure control; mA and/or kV adjustment per patient size (includes targeted exams where dose is matched to clinical indication); or iterative reconstruction. ?? CT angiography examination of the chest with thin section axial images including sagittal and coronal MPR images performed on a separate workstation under concurrent supervision. ?? 100 cc of Isovue 370 contrast was utilized ?? Examination is limited by timing of contrast bolus. ?? COMPARISON: None ?? FINDINGS: Normal opacification of the right ventricular outflow tract, main pulmonary arteries and segmental pulmonary arteries with no evidence of pulmonary embolism. No evidence of thoracic aortic dissection. ?? Patchy areas of infiltrate in the right upper lobe and right middle lobe with minimal nodular infiltrate in the lingula suspicious for areas of pneumonia. No significant emphysematous changes. No central endobronchial filling defect identified. ?? No pleural effusion or pneumothorax ?? No mediastinal, hilar or axillary adenopathy. No pericardial effusion. Normal caliber thoracic aorta ?? No mass or adenopathy in the visualized upper abdomen. ?? No suspicious regional osseous lesions. ?? IMPRESSION: No evidence of pulmonary embolism ?? Patchy areas of infiltrate most pronounced in the right upper lobe suspicious for pneumonia. ? JOB #: [id number] Electronically Signed By: ?? Signed By: John Burciaga MD Lab Results CBC and Differential?? LATEST RESULTS?? HISTORICAL RESULTS?? WBC?? 04/25/23 08:32?? 6.8?? 04/17/23?? 5.4?? RBC?? 04/25/23 08:32?? 3.81 ??Low?? 04/17/23?? 3.75 ??Low?? Hgb?? 04/25/23 08:32?? 11.9 ??Low?? 04/17/23?? 11.8 ??Low?? Hct?? 04/25/23 08:32?? 35.9 ??Low?? 04/17/23?? 35.3 ??Low?? MCV?? 04/25/23 08:32?? 94.2 ??High?? 04/17/23?? 94.1 ??High?? MCH?? 04/25/23 08:32?? 31.2 ??High?? 04/17/23?? 31.5 ??High?? MCHC?? 04/25/23 08:32?? 33.1?? 04/17/23?? 33.4?? RDW-CV?? 04/25/23 08:32?? 12.5?? 04/17/23?? 12.6?? Platelets?? 04/25/23 08:32?? 249?? 04/17/23?? 238?? MPV?? 04/25/23 08:32?? 11.1 ??High?? 04/17/23?? 11.4 ??High?? Neutro Auto?? 04/25/23 08:32?? 54.9?? 04/17/23?? 51.1?? Lymph Auto?? 04/25/23 08:32?? 27.3?? 04/17/23?? 30.7?? Aurora Auto?? 04/25/23 08:32?? 11.3 ??High?? 04/17/23?? 13.0 ??High?? Eos, Auto?? 04/25/23 08:32?? 5.60 ??High?? 04/17/23?? 4.30 ??High?? Basophil Auto?? 04/25/23 08:32?? 0.6?? 04/17/23?? 0.7?? Imm Gran Auto?? 04/25/23 08:32?? 0.3?? 04/17/23?? 0.2?? Neutro Absolute?? 04/25/23 08:32?? 3.8?? 04/17/23?? 2.7?? Lymph Absolute?? 04/25/23 08:32?? 1.9?? 04/17/23?? 1.6?? Aurora Absolute?? 04/25/23 08:32?? 0.8 ??High?? 04/17/23?? 0.7 ??High?? Eos Absolute?? 04/25/23 08:32?? 0.4 ??High?? 04/17/23?? 0.2?? Baso Absolute?? 04/25/23 08:32?? 0.0?? 04/17/23?? 0.0?? Imm Gran Absolute?? 04/25/23 08:32?? 0.02?? 04/17/23?? 0.01? Routine Chemistry?? LATEST RESULTS?? HISTORICAL RESULTS?? Sodium Level?? 04/25/23 08:32?? 137?? 04/17/23?? 137?? Potassium Level?? 04/25/23 08:32?? 3.9?? 04/17/23?? 4.2?? Chloride Level?? 04/25/23 08:32?? 98?? 04/17/23?? 100?? CO2?? 04/25/23 08:32?? 31?? 04/17/23?? 28?? Alk Phos?? 04/25/23 08:32?? 87?? 04/17/23?? 92?? AST?? 04/25/23 08:32?? 24?? 04/17/23?? 35?? ALT?? 04/25/23 08:32?? 38?? 04/17/23?? 50?? BUN?? 04/25/23 08:32?? 14?? 04/17/23?? 17?? Glucose Level?? 04/25/23 08:32?? 93?? 04/17/23?? 90?? Creatinine Level?? 04/25/23 08:32?? 1.44 ??High?? 04/17/23?? 1.35 ??High?? BUN/Creat Ratio?? 04/25/23 08:32?? 9.7?? 04/17/23?? 12.6?? eGFR CKD-EPI?? 04/25/23 08:32?? 67?? 04/17/23?? 73?? Calcium Level?? 04/25/23 08:32?? 8.8 ??Low?? 04/17/23?? 8.2 ??Low?? Protein Total?? 04/25/23 08:32?? 7.6?? 04/17/23?? 7.2?? Albumin Level?? 04/25/23 08:32?? 3.7?? 04/17/23?? 3.4 ??Low?? Globulin?? 04/25/23 08:32?? 3.9 ??High?? 04/17/23?? 3.8 ??High?? A/G Ratio?? 04/25/23 08:32?? 0.9 ??Low?? 04/17/23?? 0.9 ??Low?? Bilirubin Total?? 04/25/23 08:32?? 0.5?? 04/17/23?? 0.5?? Anion Gap?? 04/25/23 08:32?? 8.0?? 04/17/23?? 9.0?? Osmolality?? 04/25/23 08:32?? 274 ??Low?? 04/17/23?? 275? Electronically Signed on 04/25/23 09:27 AM Mp Knott MD Emergency department Discharge instructions * Bryan Sheldon DO: PERFORM Event Display: ED Discharge Information Authored Date: [id number] PEDRO PABLO SANCHEZ :1995 Age:27 years Sex:Male Visit Date:04/25/2023 Primary Care Physician: JARRELL VIVAR DO Discharge Instructions We would like to thank you for allowing us to assist you with your healthcare needs. The following includes patient education materials and information regarding your injury/illness. Diagnosis from Today's Visit Pneumonia Discharge Vitals Temperature??(Oral) 99.0 ??F (37.2 ??C) Heart Rate??(Peripheral) 92 Heart Rate??(Monitored) 92 Respiratory Rate?? 17 Blood Pressure?? 117/79?? Height?? 70.08 in (178.000 cm) Weight??(Estimated) 230.05 lb (104.33 kg) Allergies amoxicillin??(Vomiting symptom) penicillin codeine What to Do Next You Need to Schedule the Following Appointments Follow Up with??CORRINA AVILA, JARRELL MEYER When:??Within 1 week Why: Your CT imaging??demonstrated findings consistent with developing pneumonia in the right upper/right middle lobe.?? He also had??a draining small abscess in the inguinal crease on your??right groin region.?? To cover for both of these I will start you on cefpodoxime 200 mg twice daily for 7 days as well as doxycycline 100 mg twice daily for 7 days. ??Please make arrangements to follow- up with your??primary care physician next week for continuity of care. ??Return to the emergency department any increased work of breathing, persistent fevers/chills,??intractable nausea/vomiting or for anyconcerns of new or worsening illness. Where: [facility] [address] [place] [id number]- You were treated today on an emergency [...] FOR NAUSEA / VOMITING ?? Education Materials Community-Acquired Pneumonia, Adult Pneumonia is a lung infection that causes inflammation and the buildup of mucus and fluids in the lungs. This may cause coughing and difficulty breathing. Community-acquired pneumonia is pneumonia that develops in people who are not, and have not recently been, in a hospital or other health care facility. Usually, pneumonia develops as a result of an illness that is caused by a virus, such as the commoncold and the flu (influenza). It can also be caused by bacteria or fungi. While the common cold andinfluenza can pass from person to person (are contagious), pneumonia itself is not considered contagious. What are the causes? This condition may be caused by: ? Viruses. ? Bacteria. ? Fungi, such as molds or mushrooms. What increases the risk? The following factors may make you more likely to develop this condition: ? Having certain medical conditions, such as: ? A long-term (chronic) disease, which may include chronic obstructive pulmonary disease (COPD), asthma, heart failure, cystic fibrosis, diabetes, kidney disease, sickle cell disease, and human immunodeficiency virus (HIV). ? A condition that increases the risk of breathing in (aspirating) mucus and other fluids from your mouth and nose. ? A weakened body defense system (immune system). ? Having had your spleen removed (splenectomy). The spleen is the organ that helps fight germs and infections. ? Not cleaning your teeth and gums well (poor dental hygiene). ? Using tobacco products. ? Traveling to places where germs that cause pneumonia are present. ? Being near certain animals, or animal habitats, that have germs that cause pneumonia. ? Being older than 65 years of age. What are the signs or symptoms? Symptoms of this condition include: ? A dry cough or a wet (productive) cough. ? A fever. ? Sweating or chills. ? Chest pain, especially when breathing deeply or coughing. ? Fast breathing, difficulty breathing, or shortness of breath. ? Tiredness (fatigue). ? Muscle aches. How is this diagnosed? This condition may be diagnosed based on your medical history or a physical exam. You may also havetests, including: ? Chest X-rays. ? Tests of the level of oxygen and other gases in your blood. ? Tests of: ? Your blood. ? Mucus from your lungs (sputum). ? Fluid around your lungs (pleural fluid). ? Your urine. If your pneumonia is severe, other tests may be done to learn more about the cause. How is this treated? Treatment for this condition depends on many factors, such as the cause of your pneumonia, your medicines, and other medical conditions that you have. For most adults, pneumonia may be treated at home. In some cases, treatment must happen in a hospital and may include: ? Medicines that are given by mouth (orally) or through an IV, including: ? Antibiotic medicines, if bacteria caused the pneumonia. ? Medicines that kill viruses (antiviral medicines), if a virus caused the pneumonia. ? Oxygen therapy. Severe pneumonia, although rare, may require the following treatments: ? Mechanical ventilation.This procedure uses a machine to help you breathe if you cannot breathe wellon your own or maintain a safe level of blood oxygen. ? Thoracentesis. This procedure removes any buildup of pleural fluid to help with breathing. Follow these instructions at home: Medicines ? Take [id number] and prescription medicines only as told by your health care provider. ? Take cough medicine only if you have trouble sleeping. Cough medicine can prevent your body from removing mucus from your lungs. ? If you were prescribed an antibiotic medicine, take it as told by your health care provider. Do notstop taking the antibiotic even if you start to feel better. Lifestyle ? Do not drink alcohol. ? Do not use any products that contain nicotine or tobacco, such as cigarettes, e- cigarettes, and chewing tobacco. If you need help quitting, ask your health care provider. ? Eat a healthy diet. This includes plenty of vegetables, fruits, whole grains, low-fat dairy products, and lean protein. General instructions ? Rest a lot and get at least 8 hours of sleep each night. ? Sleep in a partly upright position at night. Place a few pillows under your head or sleep in a reclining chair. ? Return to your normal activities as told by your health care provider. Ask your health care provider what activities are safe for you. ? Drink enough fluid to keep your urine pale yellow. This helps to thin the mucus in your lungs. ? If your throat is sore, gargle with a salt???water mixture 3???4 times a day or as needed. To make a salt???water mixture, completely dissolve ?1 tsp (3???6 g) of salt in 1 cup (237 mL) of warm water. ? Keep all follow-up visits as told by your health care provider. This is important. How is this prevented? You can lower your risk of developing community-acquired pneumonia by: ? Getting the pneumonia vaccine. There are different types and schedules of pneumonia vaccines. Ask your health care provider which option is best for you. Consider getting the pneumonia vaccine if: ? You are older than 65 years of age. ? You are 19???65 years of age and are receiving cancer treatment, have chronic lung disease, or haveother medical conditions that affect your immune system. Ask your health care provider if this applies to you. ? Getting your influenza vaccine every year. Ask your health care provider which type of vaccine is best for you. ? Getting regular dental checkups. ? Washing your hands often with soap and water for at least 20 seconds. If soap and water are not available, use hand membership director. Contact a health care provider if you have: ? A fever. ? Trouble sleeping because you cannot control your cough with cough medicine. Get help right away if: ? Your shortness of breath becomes worse. ? Your chest pain increases. ? Your sickness becomes worse, especially if you are an older adult or have a weak immune system. ? You cough up blood. These symptoms may represent a serious problem that is an emergency. Do not wait to see if the symptoms will go away. Get medical help right away. Call your local emergency services (911 in the [place] Do not drive yourself to the hospital. Summary ? Pneumonia is an infection of the lungs. ? Community-acquired pneumonia develops in people who have not been in the hospital. It can be causedby bacteria, viruses, or fungi. ? This condition may be treated with antibiotics or antiviral medicines. ? Severe pneumonia may require a hospital stay and treatment to help with breathing. This information is not intended to replace advice given to you by your health care provider. Make sure you discuss any questions you have with your health care provider. Document Revised: 03/14/2020 Document Reviewed: 03/14/2020 [employer] Patient Education ?? 2022 [employer]. Tests Performed Radiology CT Angio Chest 04/25/2023 08:56 EST Lab Test Name Test Result Date/Time WBC 6.8 K/mcL 04/25/2023 08:32 EST RBC 3.81 Million/mcL 04/25/2023 08:32 EST Hgb 11.9 g/dL 04/25/2023 08:32 EST Hct 35.9 % 04/25/2023 08:32 EST MCV 94.2 fL 04/25/2023 08:32 EST MCH 31.2 pg 04/25/2023 08:32 EST MCHC 33.1 g/dL 04/25/2023 08:32 EST RDW-CV 12.5 % 04/25/2023 08:32 EST Platelets 249 K/mcL 04/25/2023 08:32 EST MPV 11.1 fL 04/25/2023 08:32 EST Neutro Auto 54.9 % 04/25/2023 08:32 EST Lymph Auto 27.3 % 04/25/2023 08:32 EST Aurora Auto 11.3 % 04/25/2023 08:32 EST Eos, Auto 5.60 % 04/25/2023 08:32 EST Basophil Auto 0.6 % 04/25/2023 08:32 EST Imm Gran Auto 0.3 % 04/25/2023 08:32 EST Neutro Absolute 3.8 K/mcL 04/25/2023 08:32 EST Lymph Absolute 1.9 K/mcL 04/25/2023 08:32 EST Aurora Absolute 0.8 K/mcL 04/25/2023 08:32 EST Eos Absolute 0.4 K/mcL 04/25/2023 08:32 EST Baso Absolute 0.0 K/mcL 04/25/2023 08:32 EST Imm Gran Absolute 0.02 K/mcL 04/25/2023 08:32 EST Sodium Level 137 mmol/L 04/25/2023 08:32 EST Potassium Level 3.9 mmol/L 04/25/2023 08:32 EST Chloride Level 98 mmol/L 04/25/2023 08:32 EST CO2 31 mmol/L 04/25/2023 08:32 EST Alk Phos 87 IntlUnit/L 04/25/2023 08:32 EST AST 24 IntlUnit/L 04/25/2023 08:32 EST ALT 38 IntlUnit/L 04/25/2023 08:32 EST BUN 14 mg/dL 04/25/2023 08:32 EST Glucose Level 93 mg/dL 04/25/2023 08:32 EST Creatinine Level 1.44 mg/dL 04/25/2023 08:32 EST BUN/Creat Ratio 9.7 04/25/2023 08:32 EST eGFR CKD-EPI 67 mL/min/1.73 m2 04/25/2023 08:32 EST Calcium Level 8.8 mg/dL 04/25/2023 08:32 EST Protein Total 7.6 g/dL 04/25/2023 08:32 EST Albumin Level 3.7 g/dL 04/25/2023 08:32 EST Globulin 3.9 g/dL 04/25/2023 08:32 EST A/G Ratio 0.9 g/dL 04/25/2023 08:32 EST Bilirubin Total 0.5 mg/dL 04/25/2023 08:32 EST Anion Gap 8.0 04/25/2023 08:32 EST Osmolality 274 mOsm/kg 04/25/2023 08:32 EST Patient/Environmental Remediation Consultant Signature Patient Name:PEDRO PABLO SANCHEZ I have received this information and my questions have been answered. Patient/Environmental Remediation Consultant Name: Patient/Environmental Remediation Consultant Signature: Relationship to Patient: Witness Name/Signature: Date: Electronically Signed on: 04/25/2023 10:00 ESTSigned by:KIA Patient Care team information Care Team Personnel Name: JARRELL VIVAR DO Position: No Access Member Role: Primary Care Physician Address: Address: [address] [address] [place] Name: Bryan Sheldon DO Position: Physician Member Role: Physician Address: Address: [address] [place] [id number] Name: Kiara Buckner Position: Nurse Member Role: ED Nurse Name: Mp Knott MD Position: Physician Member Role: ED Physician Address: Address: [facility] [address] [place] [address]- Care Team Related Persons Name: ARY SANCHEZ Name: MILLER SANCHEZ
--- OUTSIDE RECORDS SUMMARY | 2023-05-14 12:34 | XMS_ITS | Continuity of Care Document ---
Author Name Unknown Organization [facility] Address [address] [place] [phone] Care Team Providers Care Medical Laboratory Technicians Name Role Phone JARRELL HOUSER DO Primary Care Physician Encounter LTTL_KS FIN NBR [id number] Date(s): 02/28/23 - 02/28/23 [facility] [address] [place] [address]- [place] Encounter Diagnosis Anxiety(Discharge Diagnosis) - 02/28/23 Discharge Disposition: Home or Self Care Attending Physician: Mariann Mckeon MD Admitting Physician: Mariann Mckeon MD Allergies, Adverse Reactions, Alerts Substance Reaction Severity Status codeine Unknown Active amoxicillin Vomiting symptom Moderate Active penicillin Moderate Active Assessment and Plan Future Appointments Functional Status 02/28/23 Other exposure to Infectious Disease COV ID-19 Symptoms Present Medications acetaminophen 325 mg oral capsule 325 [...] Daily, # 30 cap, 0 Refill(s), Pharmacy: [facility], 178, cm, 02/28/23 14:26:00 EDT, Height/Length [...] Parathyroid Completed Results Laboratory List Name Date Basic Metabolic Panel (BMP) 02/28/23 CBC w/ Diff 02/28/23 Automated Diff 02/28/23 SARS-CoV-2 (Covid-19) AG (Leonora) POCT Most recent to oldest [Reference Range]: 1 WBC [4.8-10.8 K/mcL] 4.1 K/mcL *LOW* (02/28/23 2:43 PM) RBC [4.20-6.10 Million/mcL] 3.63 Million /mcL *LOW* (02/28/23 2:43 PM) Neutro Auto [42.2-75.2 %] 57.4 % (02/28/23 2:43 PM) Lymph Auto [20.5-51.1 %] 24.5 % (02/28/23 2:43 PM) Carver Auto [1.7-9.3 %] 15.5 % *HI* (02/28/23 2:43 PM) Basophil Auto [0.0-0.8 %] 0.7 % (02/28/23 2:43 PM) BUN [8-26 mg/dL] 16 mg/dL (02/28/23 2:43 PM) Glucose Level [74-106 mg/dL] 102 mg/dL (02/28/23 2:43 PM) Potassium Level [3.5-5.1 mmol/L] 3.6 mmo l/L (02/28/23 2:43 PM) Baso Absolute [0.0-0.2 K/mcL] 0.0 K/mcL (02/28/23 2:43 PM) MCV [80.0-94.0 fL] 93.7 fL (02/28/23 2:43 PM) MCHC [32.0-36.0 g/dL] 34.1 g/dL (02/28/23 2:43 PM) Osmolality [275-295 mOsm/kg] 271 mOsm/kg *LOW* (02/28/23 2:43 PM) Sodium Level [134-143 mmol/L] 135 mmol/L (02/28/23 2:43 PM) Lymph Absolute [1.2-3.4 K/mcL] 1.0 K/mcL *LOW* (02/28/23 2:43 PM) Hct [42.0-52.0 %] 34.0 % *LOW* (02/28/23 2:43 PM) Calcium Level [8.9-10.3 mg/dL] 7.8 mg/dL *LOW* (02/28/23 2:43 PM) Carver Absolute [0.1-0.6 K/mcL] 0.6 K/mcL (02/28/23 2:43 PM) MCH [27.0-31.0 pg] 32.0 pg *HI* (02/28/23 2:43 PM) Neutro Absolute [1.4-6.5 K/mcL] 2.4 K/mc L (02/28/23 2:43 PM) Hgb [14.0-18.0 g/dL] 11.6 g/dL *LOW* (02/28/23 2:43 PM) MPV [7.4-10.4 fL] 10.8 fL *HI* (02/28/23 2:43 PM) Platelets [130-400 K/mcL] 212 K/mcL (02/28/23 2:43 PM) CO2 [22-32 mmol/L] 30 mmol/L (02/28/23 2:43 PM) Eos Absolute [0.0-0.2 K/mcL] 0.1 K/mcL (02/28/23 2:43 PM) Chloride Level [98-111 mmol/L] 100 mmol/ L (02/28/23 2:43 PM) RDW-CV [11.5-14.5 %] 12.2 % (02/28/23 2:43 PM) BUN/Creat Ratio [8.0-20.0] 13.2 (02/28/23 2:43 PM) Imm Gran Absolute 0.01 *NA* (02/28/23 2:43 PM) Imm Gran Auto [0.0-0.5 %] 0.2 % (02/28/23 2:43 PM) Slide Review Not Indicated (02/28/23 2:43 PM) Creatinine Level [0.61-1.24 mg/dL] 1.21 mg/dL (02/28/23 2:43 PM) SARS-CoV or CoV-2 (COVID-19) Ag (Leonora) [Negative] Negative (02/28/23 1:27 PM) Employed in healthcare? Unknown *NA* (02/28/23 1:27 PM) Symptomatic as defined by CDC? Unknown *NA* (02/28/23 1:27 PM) Date of onset (Lab) Unknown *NA* (02/28/23 1:27 PM) Hospitalized due to COVID-19? Unknown *NA* (02/28/23 1:27 PM) In ICU? Unknown *NA* (02/28/23 1:27 PM) Group care resident? Unknown *NA* (02/28/23 1:27 PM) status? Unknown *NA* (02/28/23 1:27 PM) Anion Gap [3.0-12.0] 5.0 (02/28/23 2:43 PM) Eos, Auto [0.00-3.00 %] 1.70 % (02/28/23 2:43 PM) eGFR CKD-EPI [>=60 mL/min/1.73 m2] 83 mL /min/1.73 m2 (02/28/23 2:43 PM) Vital Signs Most recent to oldest [Reference Range]: 1 Temperature Oral [35.8-37.3 Deg C] 37.2 Deg C (02/28/23 2:18 PM) Temperature Oral (DegF) [96.4-99.1 Deg F ] 98.96 Deg F (02/28/23 2:18 PM) Heart Rate Monitored [60-100 bpm] 83 bpm (02/28/23 2:18 PM) Respiratory Rate [12-24 br/min] 16 br/mi n (02/28/23 2:18 PM) Blood Pressure [90-140/60-90 mmHg] 114/6 8mmHg (02/28/23 2:18 PM) Blood Pressure Location Right arm (02/28/23 2:18 PM) Blood Pressure Method Automatic (02/28/23 2:18 PM) Weight Dosing 104.00 kg (02/28/23 2:26 PM) Weight Estimated 104.00 kg (02/28/23 2:02 PM) Height/Length Dosing 178.000 cm (02/28/23 2:26 PM) Height/Length Estimated 178.000 cm (02/28/23 2:02 PM) Social History Social History Type Response Tobacco Never tobacco user T obacco Use:. Sex Hospital Discharge Instructions Patient Education 02/28/2023 14:46:49 Managing Anxiety, Adult Managing Anxiety, Adult After being diagnosed with anxiety, you may be relieved to know why you have felt or behaved a certain way. You may also feel overwhelmed about the treatment ahead and what it will mean for your life. With care and support, you can manage this condition. How to manage lifestyle changes Managing stress and anxiety Stress is your body's reaction to life changes and events, both good and bad. Most stress will lastjust a few hours, but stress can be ongoing and can lead to more than just stress. Although stress can play a major role in anxiety, it is not the same as anxiety. Stress is usually caused by something external, such as a deadline, test, or competition. Stress normally passes after the triggering ev ent has ended. Anxiety is caused by something internal, such as imagining a terrible outcome or worrying that something will go wrong that will devastate you. Anxiety often does not go away even after the triggering event is over, and it can become long-term (chronic) worry. It is important to understand the differences between stress and anxiety and to manage your stress effectively so that it does not lead kaveh anxious response. Talk with your health care provider or a counselor to learn more about reducing anxiety and stress.He or she may suggest tension reduction techniques, such as: ??? Music therapy. Spend time creating or listening to music that you enjoy and that inspires you. ??? Mindfulness-based meditation. Practice being aware of your normal breaths while not trying to control your breathing. It can be done while sitting or walking. ??? Centering prayer. This involves focusing on a word, phrase, or sacred image that means something to you and brings you peace. ??? Deep breathing. To do this, expand your stomach and inhale slowly through your nose. Hold your breath for 3???5 seconds. Then exhale slowly, letting your stomach muscles relax. ??? Self-talk. Learn to notice and identify thought patterns that lead to anxiety reactions and change those patterns to thoughts that feel peaceful. ??? Muscle relaxation. Taking time to tense muscles and then relax them. Choose a tension reduction technique that fits your lifestyle and personality. These techniques take time and practice. Set aside 5???15 minutes a day to do them. Therapists can offer counseling and training in these techniques. The training to help with anxiety may be covered by some insurance plans. Other things you can do to manage stress and anxiety include: ??? Keeping a stress diary. This can help you learn what triggers your reaction and then learn waysto manage your response. ??? Thinking about how you react to certain situations. You may not be able to control everything, but you can control your response. ??? Making time for activities that help you relax and not feeling guilty about spending your time in this way. ??? Doing visual imagery. This involves imagining or creating mental pictures to help you relax. ??? Practicing yoga. Through yoga poses, you can lower tension and promote relaxation. Medicines Medicines can help ease symptoms. Medicines for anxiety include: ??? Antidepressant medicines. These are usually prescribed for long-term daily control. ??? Anti-anxiety medicines. These may be added in severe cases, especially when panic attacks occur. Medicines will be prescribed by a health care provider. When used together, medicines, psychotherapy, and tension reduction techniques may be the most effective treatment. Relationships Relationships can play a big part in helping you recover. Try to spend more time connecting with trusted friends and family members. ??? Consider going to couples counseling if you have a partner, taking family education classes, orgoing to family therapy. ??? Therapy can help you and others better understand your condition. How to recognize changes in your anxiety Everyone responds differently to treatment for anxiety. Recovery from anxiety happens when symptomsdecrease and stop interfering with your daily activities at home or work. This may mean that you will start to: ??? Have better concentration and focus. Worry will interfere less in your daily thinking. ??? Sleep better. ??? Be less irritable. ??? Have more energy. ??? Have improved memory. It is also important to recognize when your condition is getting worse. Contact your health care provider if your symptoms interfere with home or work and you feel like your condition is not improving. Follow these instructions at home: Activity ??? Exercise. Adults should do the following: ??? Exercise for at least 150 minutes each week. The exercise should increase your heart rate and make you sweat (moderate-intensity exercise). ??? Strengthening exercises at least twice a week. ??? Get the right amount and quality of sleep. Most adults need 7???9 hours of sleep each night. Lifestyle ??? Eat a healthy diet that includes plenty of vegetables, fruits, whole grains, low-fat dairy products, and lean protein. ??? Do not eat a lot of foods that are high in fats, added sugars, or salt (sodium). ??? Make choices that simplify your life. ??? Do not use any products that contain nicotine or tobacco. These products include cigarettes, chewing tobacco, and vaping devices, such as e-cigarettes. If you need help quitting, ask your health care provider. ??? Avoid caffeine, alcohol, and certain pmeg-eaf-ueyurjh cold medicines. These may make you feel worse. Ask your pharmacist which medicines to avoid. General instructions ??? Take wsop-dvo-srsdydj and prescription medicines only as told by your health care provider. ??? Keep all follow-up visits. This is important. Where to find support You can get help and support from these sources: ??? Self-help groups. ??? Online and community organizations. ??? A trusted spiritual leader. ??? Couples counseling. ??? Family education classes. ??? Family therapy. Where to find more information You may find that joining a support group helps you deal with your anxiety. The following sources can help you locate counselors or support groups near you: ??? Mental Health [place]: www.mentalhealthamerica.net ??? Anxiety and Depression Association of [place] (ADAA): www.adaa.org ??? National [place] on Mental Illness (PRASAD): www.prasad.org Contact a health care provider if: ??? You have a hard time staying focused or finishing daily tasks. ??? You spend many hours a day feeling worried about everyday life. ??? You become exhausted by worry. ??? You start to have headaches or frequently feel tense. ??? You develop chronic nausea or diarrhea. Get help right away if: ??? You have a racing heart and shortness of breath. ??? You have thoughts of hurting yourself or others. If you ever feel like you may hurt yourself or others, or have thoughts about taking your own life,get help right away. Go to your nearest emergency department or: ??? Call your local emergency services (911 in the [place] ??? Call a suicide crisis helpline, such as the National Suicide Prevention Lifeline at or 891 in the [place] This is open 24 hours a day in the [place] ??? Text the Crisis Text Line at 357789 (in the [place] Summary ??? Taking steps to learn and use tension reduction techniques can help calm you and help prevent triggering an anxiety reaction. ??? When used together, medicines, psychotherapy, and tension reduction techniques may be the most effective treatment. ??? Family, friends, and partners can play a big part in supporting you. This information is not intended to replace advice given to you by your health care provider. Make sure you discuss any questions you have with your health care provider. Document Revised: 12/26/2021 Document Reviewed: 09/23/2021 Elsevier Patient Education ?? 2022 [employer]. Follow Up Care 02/28/2023 14:02:13 With:JARRELL HOUSER DO Address: [facility] [address] [place] [phone]- When:5 to 7 days only if needed Physician Emergency department Note * Anna Ocampo ICT PROGRAMMER: PERFORM Event Display: ED Note Physician Authored Date: [id number] LAURA DESIRE DECLAN :1995 Age:27 years Sex:Male Visit Date:02/28/2023 Primary Care Physician: JARRELL HOUSER DO Basic Information Time Seen: Anna Ocampo APRN / 02/28/2023 14:20 Chief Complaint pt reports sweating/chills this morning, bodyaches. reports i feel dehydrated History Of Present Illness: 27-year-old male patient frequent utilizer of the emergency department for various multiple??complaints presents today with??not feeling well feeling dehydrated.?? He is awaiting??cholecystectomy??with general surgery.?? On arrival vital signs are stable he does not look dehydrated he looks at his b aseline,??no fever chills Review of Systems: Constitutional:?No??fevers,?Positive for??chills,?No??sweats Eye:?No??recent visual problems ENT:?No??ear pain,?No??nasal congestion,?No??sore throat Respiratory:?No??shortness of breath,?No??cough Cardiovascular:?No??Chest pain,?No??palpitations,?No??syncope Gastrointestinal:?Nonausea,?No??vomiting,?No??diarrhea Genitourinary:?No??hematuria Joaquín/Lymph:?No??bruising tendency,?No??swollen lymph glands Endocrine:?No??excessive thirst,??No??excessive hunger Musculoskeletal:??No??back pain,??No??neck pain,??No??joint pain,??No??muscle pain,??No??decreased range of motion Integumentary:?No??rash,?No??pruritus,?No??abrasions Neurologic: Alert & oriented X 4 Psychiatric:?No??anxiety,?No??depression Physical Exam Vitals & Measurements T:??37.2?C ??(Oral)?? HR:??83??(Monitored)?? RR:??16?? BP:??114/68?? SpO2:??95%?? HT:??178.000??cm?? WT:??104.00??kg??(Estimated)?? Pain Score:??6?? O2 Therapy:??Room air?? General: Alert and oriented, well nourished,?No??acute distress Eye: PERRL, EOMI,?Normal?conjunctiva HENT: Normocephalic,?Normal? hearing, moist oral mucosa,?No??scleral icterus,?No??sinustenderness Neck: Supple, non-tender,?? Lungs:??Clear to auscultation?? Respiration:??Non-Labored Heart:?Normal? rate,?Regular??rhythm,?? Abdomen: Soft, non-tender, non-distended,?Normal? bowel sounds,?No??masses Musculoskeletal:?Normal? range of motion and strength,?No??tenderness,?No??swelling Skin: Skin is warm, dry and pink,?No??rashes,?No??lesions Neurologic: Awake, alert and oriented X4, Psychiatric: Cooperative, appropriate mood and affect Medical Decision Making: Presents with chills and feeling dehydrated we will check routine??CBC basic metabolic panel??andCOVID Procedure No Qualifying Data Assessment/Plan 1.??Anxiety??F41.9 Orders: Basic Metabolic Panel, Blood, Stat, 02/28/23 14:27:00 EDT, Once, Nurse collect Patient Discharge Condition stable Discharge Disposition home Patient Education Managing Anxiety, Adult Follow Up With When Contact Information JARRELL OHUSER DO Within 5 to 7 days, only if needed [facility] [address] [place] [phone]- Additional Instructions: Medication Reconciliation Unchanged acetaminophen (acetaminophen [...] and Differential?? LATEST RESULTS?? HISTORICAL RESULTS?? WBC?? 02/28/23 14:43?? 4.1 ??Low?? 02/22/23?? 5.5?? RBC?? 02/28/23 14:43?? 3.63 ??Low?? 02/22/23?? 3.65 ??Low?? Hgb?? 02/28/23 14:43?? 11.6 ??Low?? 02/22/23?? 11.4 ??Low?? Hct?? 02/28/23 14:43?? 34.0 ??Low?? 02/22/23?? 34.4 ??Low?? MCV?? 02/28/23 14:43?? 93.7?? 02/22/23?? 94.2 ??High?? MCH?? 02/28/23 14:43?? 32.0 ??High?? 02/22/23?? 31.2 ??High?? MCHC?? 02/28/23 14:43?? 34.1?? 02/22/23?? 33.1?? RDW-CV?? 02/28/23 14:43?? 12.2?? 02/22/23?? 12.2?? Platelets?? 02/28/23 14:43?? 212?? 02/22/23?? 236?? MPV?? 02/28/23 14:43?? 10.8 ??High?? 02/22/23?? 11.2 ??High?? Neutro Auto?? 02/28/23 14:43?? 57.4?? 02/22/23?? 55.3?? Lymph Auto?? 02/28/23 14:43?? 24.5?? 02/22/23?? 27.8?? Carver Auto?? 02/28/23 14:43?? 15.5 ??High?? 02/22/23?? 13.9 ??High?? Eos, Auto?? 02/28/23 14:43?? 1.70?? 02/22/23?? 2.30?? Basophil Auto?? 02/28/23 14:43?? 0.7?? 02/22/23?? 0.5?? Imm Gran Auto?? 02/28/23 14:43?? 0.2?? 02/22/23?? 0.2?? Neutro Absolute?? 02/28/23 14:43?? 2.4?? 02/22/23?? 3.1?? Lymph Absolute?? 02/28/23 14:43?? 1.0 ??Low?? 02/22/23?? 1.5?? Carver Absolute?? 02/28/23 14:43?? 0.6?? 02/22/23?? 0.8 ??High?? Eos Absolute?? 02/28/23 14:43?? 0.1?? 02/22/23?? 0.1?? Baso Absolute?? 02/28/23 14:43?? 0.0?? 02/22/23?? 0.0?? Imm Gran Absolute?? 02/28/23 14:43?? 0.01?? 02/22/23?? 0.01?? Slide Review?? 02/28/23 14:43?? Not Indicated?? 02/19/23?? Not Indicated? Routine Chemistry?? LATEST RESULTS?? HISTORICAL RESULTS?? Sodium Level?? 02/28/23 14:43?? 135?? 02/22/23?? 136?? Potassium Level?? 02/28/23 14:43?? 3.6?? 02/22/23?? 3.7?? Chloride Level?? 02/28/23 14:43?? 100?? 02/22/23?? 100?? CO2?? 02/28/23 14:43?? 30?? 02/22/23?? 31?? Glucose Level?? 02/28/23 14:43?? 102?? 02/22/23?? 97?? Calcium Level?? 02/28/23 14:43?? 7.8 ??Low?? 02/22/23?? 8.1 ??Low?? Anion Gap?? 02/28/23 14:43?? 5.0?? 02/22/23?? 5.0? Electronically Signed on 02/28/23 03:49 PM Anna Ocampo APRN Emergency department Discharge instructions * Anna Ocampo APRN: PERFORM Event Display: ED Discharge Information Authored Date: [id number] DESIRE SANCHEZ :1995 Age:27 years Sex:Male Visit Date:02/28/2023 Primary Care Physician: JARRELL HOUSER DO Discharge Instructions We would like to thank you for allowing us to assist you with your healthcare needs. The following includes patient education materials and information regarding your injury/illness. Diagnosis from Today's Visit Anxiety Discharge Vitals Temperature??(Oral) 99.0 ??F (37.2 ??C) Heart Rate??(Monitored) 83 Respiratory Rate?? 16 Blood Pressure?? 114/68?? Height?? 70.08 in (178.000 cm) Weight??(Estimated) 229.32 lb (104.00 kg) Allergies amoxicillin??(Vomiting symptom) penicillin codeine What to Do Next Instructions from Your Care Team clear liquids advance as tolerated. You Need to Schedule the Following Appointments Follow Up with??JARRELL HOUSER DO When:??Within 5 to 7 days, only if needed Where: [facility] [address] [place] [phone]- Upcoming Scheduled Appointments 2022 10:30 AM EDT ?? You were treated today [...] Chest pain due to GERD Education Materials Managing Anxiety, Adult After being diagnosed with anxiety, you may be relieved to know why you have felt or behaved a certain way. You may also feel overwhelmed about the treatment ahead and what it will mean for your life. With care and support, you can manage this condition. How to manage lifestyle changes Managing stress and anxiety Stress is your body's reaction to life changes and events, both good and bad. Most stress will lastjust a few hours, but stress can be ongoing and can lead to more than just stress. Although stress can play a major role in anxiety, it is not the same as anxiety. Stress is usually caused by something external, such as a deadline, test, or competition. Stress normally passes after the triggering ev ent has ended. Anxiety is caused by something internal, such as imagining a terrible outcome or worrying that something will go wrong that will devastate you. Anxiety often does not go away even after the triggering event is over, and it can become long-term (chronic) worry. It is important to understand the differences between stress and anxiety and to manage your stress effectively so that it does not lead kaveh anxious response. Talk with your health care provider or a counselor to learn more about reducing anxiety and stress.He or she may suggest tension reduction techniques, such as: ? Music therapy. Spend time creating or listening to music that you enjoy and that inspires you. ? Mindfulness-based meditation. Practice being aware of your normal breaths while not trying to control your breathing. It can be done while sitting or walking. ? Centering prayer. This involves focusing on a word, phrase, or sacred image that means something toyou and brings you peace. ? Deep breathing. To do this, expand your stomach and inhale slowly through your nose. Hold your breath for 3???5 seconds. Then exhale slowly, letting your stomach muscles relax. ? Self-talk. Learn to notice and identify thought patterns that lead to anxiety reactions and change those patterns to thoughts that feel peaceful. ? Muscle relaxation. Taking time to tense muscles and then relax them. Choose a tension reduction technique that fits your lifestyle and personality. These techniques take time and practice. Set aside 5???15 minutes a day to do them. Therapists can offer counseling and training in these techniques. The training to help with anxiety may be covered by some insurance plans. Other things you can do to manage stress and anxiety include: ? Keeping a stress diary. This can help you learn what triggers your reaction and then learn ways to manage your response. ? Thinking about how you react to certain situations. You may not be able to control everything, but you can control your response. ? Making time for activities that help you relax and not feeling guilty about spending your time in this way. ? Doing visual imagery. This involves imagining or creating mental pictures to help you relax. ? Practicing yoga. Through yoga poses, you can lower tension and promote relaxation. Medicines Medicines can help ease symptoms. Medicines for anxiety include: ? Antidepressant medicines. These are usually prescribed for long-term daily control. ? Anti-anxiety medicines. These may be added in severe cases, especially when panic attacks occur. Medicines will be prescribed by a health care provider. When used together, medicines, psychotherapy, and tension reduction techniques may be the most effective treatment. Relationships Relationships can play a big part in helping you recover. Try to spend more time connecting with trusted friends and family members. ? Consider going to couples counseling if you have a partner, taking family education classes, or going to family therapy. ? Therapy can help you and others better understand your condition. How to recognize changes in your anxiety Everyone responds differently to treatment for anxiety. Recovery from anxiety happens when symptomsdecrease and stop interfering with your daily activities at home or work. This may mean that you will start to: ? Have better concentration and focus. Worry will interfere less in your daily thinking. ? Sleep better. ? Be less irritable. ? Have more energy. ? Have improved memory. It is also important to recognize when your condition is getting worse. Contact your health care provider if your symptoms interfere with home or work and you feel like your condition is not improving. Follow these instructions at home: Activity ? Exercise. Adults should do the following: ? Exercise for at least 150 minutes each week. The exercise should increase your heart rate and make you sweat (moderate-intensity exercise). ? Strengthening exercises at least twice a week. ? Get the right amount and quality of sleep. Most adults need 7???9 hours of sleep each night. Lifestyle ? Eat a healthy diet that includes plenty of vegetables, fruits, whole grains, low-fat dairy products, and lean protein. ? Do not eat a lot of foods that are high in fats, added sugars, or salt (sodium). ? Make choices that simplify your life. ? Do not use any products that contain nicotine or tobacco. These products include cigarettes, chewing tobacco, and vaping devices, such as e-cigarettes. If you need help quitting, ask your health careprovider. ? Avoid caffeine, alcohol, and certain nclx-hvh-rdklcby cold medicines. These may make you feel worse. Ask your pharmacist which medicines to avoid. General instructions ? Take [id number] and prescription medicines only as told by your health care provider. ? Keep all follow-up visits. This is important. Where to find support You can get help and support from these sources: ? Self-help groups. ? Online and community organizations. ? A trusted spiritual leader. ? Couples counseling. ? Family education classes. ? Family therapy. Where to find more information You may find that joining a support group helps you deal with your anxiety. The following sources can help you locate counselors or support groups near you: ? Mental Health [place]: www.mentalhealth[place]ica.net ? Anxiety and Depression Association of [place] (ADAA): www.adaa.org ? [employer] [place] [employer]ness (PRASAD): www.prasad.org Contact a health care provider if: ? You have a hard time staying focused or finishing daily tasks. ? You spend many hours a day feeling worried about everyday life. ? You become exhausted by worry. ? You start to have headaches or frequently feel tense. ? You develop chronic nausea or diarrhea. Get help right away if: ? You have a racing heart and shortness of breath. ? You have thoughts of hurting yourself or others. If you ever feel like you may hurt yourself or others, or have thoughts about taking your own life,get help right away. Go to your nearest emergency department or: ? Call your local emergency services (911 in the [place] ? Call a suicide crisis helpline, such as the National Suicide Prevention Lifeline at or 728 in the [place] This is open 24 hours a day in the [place] ? Text the Crisis Text Line at 498482 (in the [place] Summary ? Taking steps to learn and use tension reduction techniques can help calm you and help prevent triggering an anxiety reaction. ? When used together, medicines, psychotherapy, and tension reduction techniques may be the most effective treatment. ? Family, friends, and partners can play a big part in supporting you. This information is not intended to replace advice given to you by your health care provider. Make sure you discuss any questions you have with your health care provider. Document Revised: 12/26/2021 Document Reviewed: 09/23/2021 [employer] Check Patient Education ?? 2022 [employer] Tests Performed Lab Test Name Test Result Date/Time WBC 4.1 K/mcL 02/28/2023 14:43 EDT RBC 3.63 Million/mcL 02/28/2023 14:43 EDT Hgb 11.6 g/dL 02/28/2023 14:43 EDT Hct 34.0 % 02/28/2023 14:43 EDT MCV 93.7 fL 02/28/2023 14:43 EDT MCH 32.0 pg 02/28/2023 14:43 EDT MCHC 34.1 g/dL 02/28/2023 14:43 EDT RDW-CV 12.2 % 02/28/2023 14:43 EDT Platelets 212 K/mcL 02/28/2023 14:43 EDT MPV 10.8 fL 02/28/2023 14:43 EDT Neutro Auto 57.4 % 02/28/2023 14:43 EDT Lymph Auto 24.5 % 02/28/2023 14:43 EDT Carver Auto 15.5 % 02/28/2023 14:43 EDT Eos, Auto 1.70 % 02/28/2023 14:43 EDT Basophil Auto 0.7 % 02/28/2023 14:43 EDT Imm Gran Auto 0.2 % 02/28/2023 14:43 EDT Neutro Absolute 2.4 K/mcL 02/28/2023 14:43 EDT Lymph Absolute 1.0 K/mcL 02/28/2023 14:43 EDT Carver Absolute 0.6 K/mcL 02/28/2023 14:43 EDT Eos Absolute 0.1 K/mcL 02/28/2023 14:43 EDT Baso Absolute 0.0 K/mcL 02/28/2023 14:43 EDT Imm Gran Absolute 0.01 02/28/2023 14:43 EDT Slide Review Not Indicated 02/28/2023 14:43 EDT Sodium Level 135 mmol/L 02/28/2023 14:43 EDT Potassium Level 3.6 mmol/L 02/28/2023 14:43 EDT Chloride Level 100 mmol/L 02/28/2023 14:43 EDT CO2 30 mmol/L 02/28/2023 14:43 EDT Glucose Level 102 mg/dL 02/28/2023 14:43 EDT Calcium Level 7.8 mg/dL 02/28/2023 14:43 EDT Anion Gap 5.0 02/28/2023 14:43 EDT SARS-CoV or CoV-2 (COVID-19) Ag (Leonora) Negative 02/28/2023 13:27 EDT Employed in healthcare? Unknown 02/28/2023 13:27 EDT Symptomatic as defined by CDC? Unknown 02/28/2023 13:27 EDT Date of onset (Lab) Unknown 02/28/2023 13:27 EDT Hospitalized due to COVID-19? Unknown 02/28/2023 13:27 EDT In ICU? Unknown 02/28/2023 13:27 EDT Group care resident? Unknown 02/28/2023 13:27 EDT status? Unknown 02/28/2023 13:27 EDT Patient/Teaching Manager Signature Patient Name:DESIRE SANCHEZ I have received this information and my questions have been answered. Patient/Teaching Manager Name: Patient/Teaching Manager Signature: Relationship to Patient: Witness Name/Signature: Date: Electronically Signed on: 02/28/2023 15:49 EDTSigned by:[facility] Patient Care team information Care Team Personnel Name: JARRELL HOUSER DO Position: No Access Member Role: Primary Care Physician Address: Address: [address] [id number] Name: Christina Cruz I Position: Nurse Member Role: ED Nurse Name: Anna Ocampo APRN Position: Physician Member Role: Nurse Practitioner Address: Address: [address] [place] [id number] Care Team Related Persons Name: ARY SANCHEZ Name: MILLER SANCHEZ
--- OUTSIDE RECORDS SUMMARY | 2023-05-14 12:34 | XMS_ITS | Continuity of Care Document ---
Author Name Unknown Organization [facility] Address [address] [place] [id number] Care Team Providers Care Transaction Manager Name Role Phone JARRELL HOUSER DO Primary Care Physician Encounter [facility] NBR [phone] Date(s): 04/26/23 - 04/26/[address] [address] [place] Encounter Diagnosis Fracture of tooth enamel and dentin(Discharge Diagnosis) - 04/26/23 Dry socket(Discharge Diagnosis) - 04/26/23 Discharge Disposition: Home or Self Care Attending Physician: Bryan Sheldon DO Admitting Physician: Bryan Sheldon DO Allergies, Adverse Reactions, Alerts Substance Reaction Severity Status codeine Unknown Active amoxicillin Vomiting symptom Moderate Active penicillin Moderate Active Functional Status 04/26/23 Other exposure to Infectious Disease Non e [...] hr, # 14 tab, 0 Refill(s), Pharmacy: [facility], 178, cm, 04/25/23 7:14:00 EST, Height, [...] 14 tab, 0 Refill(s), 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, Pharmacy: [facility], 178, cm, 04/25/23 7:14:00 EST, Height, [...] Daily, # 30 cap, 0 Refill(s), Pharmacy: [facility], 178, cm, 02/28/23 14:26:00 EDT, Height/Length [...] Start Date: 09/22/22 Status: Ordered Mental Status 04/26/23 Eye Opening Response [place] [facility] Spontaneous ly Best Verbal Response [facility] Oriented Best Motor Response [facility] Obeys shawn ds Arthur Coma Score 15 Problem List [...] Temperature Temporal Artery [36-38 Deg C ] 36.7 Deg C (04/26/23 8:57 AM) Peripheral Pulse Rate [60-100 bpm] 93 bp m (04/26/23 8:57 AM) Respiratory Rate [12-24 br/min] 16 br/mi n (04/26/23 8:57 AM) Blood Pressure [90-140/60-90 mmHg] 111/7 6mmHg (04/26/23 8:57 AM) Mean Arterial Pressure, Cuff [70-110 mmH g] 88 mmHg (04/26/23 8:57 AM) Weight 104.33 kg (04/26/23 8:57 AM) Weight Dosing 104.33 kg (04/26/23 9:06 AM) Height 178.000 cm (04/26/23 9:06 AM) 178.000 cm (04/26/23 8:57 AM) Body Mass Index 33.000 kg/m2 (04/26/23 8:57 AM) Social History Social History Type Response Tobacco Never tobacco user T obacco Use:. Sex Hospital Discharge Instructions Patient Education 04/26/2023 09:21:53 Dental Dry Socket Dental Dry Socket A dry socket is a condition that can occur after a tooth is pulled (extracted). After an extraction, blood fills in the hole (socket) where the tooth had been. Normally, this blood thickens (clots) and the blood clot protects the bone and nerves underneath until the gums grow over the open socket. A dry socket occurs when a blood clot does not properly form. It also occurs when the clot becomes dislodged or breaks up into parts. Without the blood clot, the bone and nerves are exposed to air, food, liquid, or anything else that enters the mouth. This can be very painful. What are the causes? This condition may be caused by: ??? Blood not filling up the socket properly. This is more likely to occur following a difficult extraction but can occur following a simple extraction. During any extraction procedure, the force required to remove the tooth may close off the surrounding blood vessels in the wall of the socket. This decreased flow of blood to the socket childers increases the likelihood of a dry socket occurring. ??? Anything that can dislodge a blood clot that is forming. For example, forceful spitting or sucking through a straw can pull a blood clot out of the socket. ??? Anything that can decrease the quality of the clot. Dry socket occurs more frequently in smokers than in nonsmokers. What increases the risk? The following factors may make you more likely to develop this condition: ??? Having lower teeth extracted. ??? Having wisdom teeth extracted. ??? Smoking. ??? Drinking alcohol. ??? Being female. ??? Having poor oral hygiene. ??? Having gum disease or an oral bacterial infection. ??? Taking control pills. What are the signs or symptoms? Symptoms of this condition include: ??? Severe, constant pain in the jaw or ear that is dull and throbbing. The pain often begins 2???3days after your tooth was extracted. The pain may last about a week. ??? Bad-smelling breath and a bad taste in your mouth. ??? Exposed white bone in the tooth socket. How is this diagnosed? This condition is diagnosed based on your symptoms and an examination of the inside of your mouth. Your dental care provider will check to see if you have a blood clot in your tooth socket or if yourbone is visible. Although a dry socket cannot be diagnosed based on an imaging test, the exam may include X-rays of the area. These tests are done to rule out dental or health issues, such as a bone infection (osteomyelitis), fractured jaws, or a problem with nearby teeth. How is this treated? This condition will clear up on its own after 1???2 weeks unless an infection occurs. However, you may get treatment for pain, which may include: ??? Soaking a gauze pad in a topical pain medicine and then placing it inside your tooth socket. This pad (dressing) may need to be replaced every 1???3 days until your pain eases. ??? Taking NSAIDs such as ibuprofen. ??? Taking a prescription pain medicine, if NSAIDs do not relieve your pain. Treatment may also include antibiotic medicine. Follow these instructions at home: Medicines ??? Take dqvg-ssg-zbsiqfm and prescription medicines only as told by your dental care provider. ??? If you were prescribed an antibiotic medicine, take it as told by your dental care provider. Donot stop taking the antibiotic even if you start to feel better. ??? Ask your dental care provider if the medicine prescribed to you: ??? Requires you to avoid driving or using machinery. ??? Can cause constipation. You may need to take these actions to prevent or treat constipation: ??? Drink enough fluid to keep your urine pale yellow. ??? Take evfb-fwk-ragksmq or prescription medicines. ??? Eat foods that are high in fiber, such as beans, whole grains, and fresh fruits and vegetables. ??? Limit foods that are high in fat and processed sugars, such as fried or sweet foods. Eating and drinking ??? Do not drink through a straw until your dental care provider says it is okay. ??? Eat cool, soft-textured foods as told by your dental care provider. ??? Avoid hot drinks and spicy foods until your mouth has healed. ??? Do not drink carbonated beverages or alcohol. General instructions ??? [place] and floss your teeth every morning and night. Good oral hygiene is important. ??? Avoid rinsing your mouth and using mouthwash during the healing period, as told by your dental care provider. ??? Do not use any products that contain nicotine or tobacco. These products include cigarettes, chewing tobacco, and vaping devices, such as e-cigarettes. If you need help quitting, ask your dental care provider. ??? Keep all follow-up visits. This is important. Contact a dental care provider if: ??? You have pain that is not helped by medicine. ??? You have a fever. This could be a sign of infection. ??? Your mouth becomes tender and swollen. This could be a sign of infection. Get help right away if: ??? You have uncontrolled bleeding, very noticeable swelling, or severe pain. ??? You have difficulty swallowing. ??? You cannot open your mouth. Summary ??? Dry socket is a condition that can occur after a tooth is extracted. The bone and nerves becomeexposed to air, food, liquid, or anything else that enters the mouth. This can be very painful. ??? This condition will clear up on its own after 1???2 weeks unless an infection occurs. You may get treatment for pain. You may also get antibiotic medicine. ??? Take hkvt-tym-zhtxcsz and prescription medicines only as told by your dental care provider. ??? If you were prescribed an antibiotic medicine, take it as told by your dental care provider. Donot stop taking the antibiotic even if you start to feel better. ??? Get help right away if you have uncontrolled bleeding, very noticeable swelling, or severe pain. This information is not intended to replace advice given to you by your health care provider. Make sure you discuss any questions you have with your health care provider. Document Revised: 08/01/2021 Document Reviewed: 08/01/2021 [employer] Patient Education ?? 2022 tarpipe. 04/26/2023 09:21:50 Tooth Injuries Tooth Injuries Tooth injuries include cracked or broken teeth, teeth that have been dislodged or moved out of place, and teeth that have been knocked out of the mouth. Severe tooth injuries need to be treated quickly to save the tooth. However, sometimes it is not possible to save a tooth after an injury, and the tooth may need to be removed. What are the causes? Tooth injuries may be caused by any force that is strong enough to chip, break, dislodge, or knock out a tooth. The injuries may come from: ??? Sports accidents. ??? Falls. ??? Fights. What increases the risk? The following factors may make you more likely to lose a tooth: ??? Playing contact sports, such as football or boxing, without using a mouth guard. ??? Any medical condition that increases the risk of falling or fainting. ??? Anything that causes injury to the face. ??? Any condition that reduces the support of the root of the tooth. What are the signs or symptoms? Symptoms of this condition include a tooth that: ??? May have moved out of position. ??? May have moved into or out of the tooth socket. ??? May not be visible in the gums, if the fracture was severe. Other symptoms of a tooth injury include: ??? Pain, especially when chewing. ??? A loose tooth. ??? Bleeding in or around the tooth. ??? Swelling or bruising near the tooth. ??? Swelling or bruising of the lip over the injured tooth. ??? Increased tooth sensitivity to heat and cold. ??? A tooth that is knocked out of its place in the gum. How is this diagnosed? A tooth injury can be diagnosed with a complete history and a physical exam. You may also need dental X-rays to check for injuries to the root of the tooth. How is this treated? Treatment depends on the type of injury and its severity. Treatment may need to be done quickly to save your tooth. Possible treatments include: ??? Replacing a tooth fragment with a filling, a cap, or a hard, protective cover (crown). This maybe an option for a chip or fracture that does not affect the inside of your tooth. ??? Repairing the inside of the tooth (root canal), if the dentist thinks it is necessary. ??? The root canal usually needs to be done within a few days of the injury. This may be done to treat a tooth fracture that affects the pulp. ??? Repositioning a dislodged tooth. ??? Using a brace or splint to hold the tooth in place. ??? Replacing a knocked-out tooth in the socket, if possible, and then doing a root canal. ??? Extracting a tooth. This is done for a fracture that extends below the gums or a fracture that splits the tooth completely. ??? Taking medicine, including: ??? Pain medicine. ??? Antibiotic medicine to help prevent infection. Follow these instructions at home: Medicines ??? Take xcjz-vav-khxjizi and prescription medicines only as told by your dentist. ??? Take your antibiotic medicine as told by your dentist. Do not stop taking the antibiotic even if you start to feel better. ??? Do not drive or use heavy machinery while taking prescription pain medicine. Caring for your teeth ??? Do not eat or chew on very hard objects. These include ice cubes, pens, pencils, hard candy, and popcorn kernels. ??? Do not clench or grind your teeth. Tell your dentist if you grind your teeth while you sleep. ??? [place] your teeth gently as directed by your dentist. ??? Do not use your teeth to open packages. ??? Always wear mouth protection when you play contact sports. Managing pain and swelling ??? Gargle with a mixture of salt and water 3???4 times a day or as needed. To make salt water, completely dissolve ?1 tsp (3???6 g) of salt in 1 cup (237 mL) of warm water. ??? If directed, apply ice to your mouth near the injured tooth: ??? Put ice in a plastic bag. [...] damage to the area. General instructions ??? Do not use any products that contain nicotine or tobacco. These products include cigarettes, chewing tobacco, and vaping devices, such as e-cigarettes. If you need help quitting, ask your health care provider. ??? Your health care provider may recommend that you eat certain foods. This may include eating only soft foods. ??? Check the injured area every day for signs of infection. Watch for: ??? Redness, swelling, or pain. ??? Fluid, blood, or pus. ??? Keep all follow-up visits. This is important. Contact a dental care provider if: ??? Your pain gets much worse, even after you take pain medicine. ??? You have pus coming from the site of the tooth injury. ??? You develop swelling near your injured tooth. ??? You have a tooth splint, and it becomes loose. ??? Your tooth becomes loose. Get help right away if: ??? You have swelling in the face. ??? You have a fever. ??? You have bleeding near the tooth that does not stop in 10 minutes. ??? You have trouble swallowing. ??? You have trouble opening your mouth. ??? Your permanent tooth comes out after it is repositioned. Summary ??? Tooth injuries include cracked or broken teeth and teeth that have been dislodged or knocked out of the mouth. ??? A tooth injury can be diagnosed with a medical history and a physical exam. You may also need dental X-rays to check for injuries to the root of the tooth. ??? Treatment depends on the type of injury you have and its severity. Treatment may need to be done quickly to save your tooth. This information is not intended to replace advice given to you by your health care provider. Make sure you discuss any questions you have with your health care provider. Document Revised: 02/07/2021 Document Reviewed: 02/07/2021 [employer] Patient Education ?? 2022 tarpipe. Follow Up Care 04/26/2023 08:57:18 With:Tylenol/Motrin for Pain/Fever Relief Address:Unknown When:1 month With:JARRELL HOUSER DO Address: [facility] [address] [place] [id number]- When:1 month Physician Emergency department Note * ANDREW Iraheta: PERFORM Event Display: ED Note Physician Authored Date: [id number] LAURA DESIREJORGE MANRIQUEZ :1995 Age:27 years Sex:Male Visit Date:04/26/2023 Primary Care Physician: JARRELL HOUSER DO Basic Information Time Seen: ANDREW Iraheta / 04/26/2023 09:43 Chief Complaint Had tooth pulled upper LEFT on Friday, thinks he has dry socket. Last night bit into an apple onRIGHT side and broke tooth on upper RIGHT. Called dentist this AM and told to go to ED. Has appt for Friday. 1G tylenol, 600 mg ibuprofen 1 hr ago. History Of Present Illness: Patient is a 27-year-old male familiar to the emergency department here for??tooth pain surroundinga possible dry socket??and a fractured tooth. ??Explains that he??bit into an apple last night and fractured??tooth #14. ??He called his dentist who advised him to be seen in the emergency department and??has a dental follow-up??in 3 days. ??Explains that he has a dental procedure??and removal of tooth #13 last week??but now with the gum has become swollen and painful.?? He??is afebrile denies any shortness of breath or chest pain.?? Patient is currently on??Augmentin for??a diagnosis of pneumonia. ??He was last seen in the ED yesterday. Review of Systems: See HPI Physical Exam Vitals & Measurements T:??36.7?C ??(Temporal Artery)?? HR:??93??(Peripheral)?? RR:??16?? BP:??111/76?? SpO2:??98%?? HT:??178.000??cm?? WT:??104.33??kg?? BMI:??33.000?? O2 Therapy:??Room air?? General: Patient is alert and engaging, appears well. Is in no acute distress. Speaking comfortablyin full sentences.?? Constitutional: No fevers, chills or diaphoresis.?? HEENT: Head normocephalic and atraumatic. Neck supple with FROM w/o lymphadenopathy or JVD. Multiple dental caries and fractured of tooth #??3 and the gum of tooth #14 is swollen an tender to palpation. ?? Respiratory: ??No obvious work of breathing, regular rate. BS equal b/l, clear to auscultation. Cardiovascular: Heart regular rate and rhythm w/o murmurs, rubs or gallops. No peripheral edema present.?? GI: normoactive BS. Abdomen soft non tender, nondistended without guarding, rebound or rigidity. NoHSM Extremities: No obvious deformities. FROM.?? Integumentary: Skin warm and pink. No rashes or ecchymosis present.?? Neuro: CN III-XII grossly intact.?? Psychiatric: acting appropriate for age and circumstance. Normal mood without obvious ??affect.?? Medical Decision Making: Patient is a pleasant 27-year-old male here for concern of dental pain around 2 teeth??#3 and #14. ??Vitals obtained and reviewed. Tooth #3 is fractured and there appears to be dry socket present in tooth #14.?? Dental block provided??almost complete relief to both sites. ??And beaver lite applied to the fractured tooth. ??He has dental follow-up on Friday which is in 3 days??and will continue Tylenol and ibuprofen as directed. Procedure Dental block Supra??periosteal injection??performed to both??tooth #3 and 14. ??Area was prepped with??topical benzocaine for 5 minutes??and then dried.?? After??aspiration??0.5 mL of??Marcaine??injected??at bothsites.?? Anesthesia??achieved??after 2 minutes.?? Tooth #3 was then curetted with??[place]- Lite??and 20 seconds of curing.?? PPE's including eye protection worn??during procedures. Patient tolerated procedure well No Qualifying Data Assessment/Plan 1.??Fracture of tooth enamel and dentin??S02.5XXA Discharged home with almost complete resolution of the pain after dental block.?? Supportive care discussed including??Tylenol ibuprofen and??will have close dental follow-up. ??Precautions understood. Ordered: Discharge Patient, 04/26/23 10:20:00 EST ?? 2.??Dry socket??M27.3 Ordered: Discharge Patient, 04/26/23 10:20:00 EST ?? Patient Education Dental Dry Socket Tooth Injuries Follow Up With When Contact Information Tylenol/Motrin for Pain/Fever Relief Within 1 month Additional Instructions: CORRINA AVILA, JARRELL MEYER Within 1 month [facility] [address] [place] [id number]- Additional Instructions: Medication Reconciliation Unchanged acetaminophen (acetaminophen 325 mg oral capsule)1 Capsules Oral (given by mouth) every 4 hours as needed as needed for fever. ?? calcitriol (calcitriol 0.25 mcg oral capsule)1 Capsules Oral (given by mouth) 2 times a day. ?? calcium carbonate (Tums 500 mg oral tablet, chewable)1 tab Chewed 2 times a day. ?? cefpodoxime (cefpodoxime 200 mg oral tablet)1 tab Oral (given by mouth) every 12 hours for 7 Days. Refills: 0. ?? clonazePAM (clonazePAM 1 mg oral tablet)1 tab Oral (given by mouth) 2 times a day. ?? dicyclomine (dicyclomine 20 mg oral tablet)TAKE ONE TABLET BY MOUTH FOUR TIMES A DAY NEEDED FOR ABDOMINAL PAIN. ?? doxycycline (doxycycline monohydrate 100 mg oral tablet)1 tab Oral (given by mouth) 2 times a day for 7 Days. Refills: 0. ?? esomeprazole (NexIUM 20 mg oral delayed [...] FATHER, at age: Unknown. Cause of : Electronically Signed on 04/26/23 10:41 AM ANDREW Iraheta Emergency department Discharge instructions * ANDREW Iraheta: PERFORM Event Display: ED Discharge Information Authored Date: [id number] DESIRE SANCHEZ :1995 Age:27 years Sex:Male Visit Date:04/26/2023 Primary Care Physician: JARRELL HOUSER DO Discharge Instructions We would like to thank you for allowing us to assist you with your healthcare needs. The following includes patient education materials and information regarding your injury/illness. Diagnosis from Today's Visit Fracture of tooth enamel and dentin Dry socket Discharge Vitals Temperature??(Temporal Artery) 98.1 ??F (36.7 ??C) Heart Rate??(Peripheral) 93 Respiratory Rate?? 16 Blood Pressure?? 111/76?? Height?? 70.08 in (178.000 cm) Weight?? 230.05 lb (104.33 kg) BMI?? 33.000 Allergies amoxicillin??(Vomiting symptom) penicillin codeine What to Do Next Instructions from Your Care Team As discussed please continue with Tylenol ibuprofen and follow-up with your dentist on Friday You Need to Schedule the Following Appointments Follow Up with??Tylenol/Motrin for Pain/Fever Relief When:??Within 1 month Follow Up with??JARRELL HOUSER DO When:??Within 1 month Where: [facility] [address] [place] [id number]- You were treated today on an emergency [...] tab Chewed 2 times a day Unchanged cefpodoxime (cefpodoxime 200 mg oral tablet) 1 tab Oral (given by mouth) Every 12 hours Pneumonia Duration: 7 Days Unchanged clonazePAM (clonazePAM 1 mg oral tablet) 1 tab Oral (given by mouth) 2 times a day Unchanged dicyclomine (dicyclomine 20 mg oral tablet) TAKE ONE TABLET BY MOUTH FOUR TIMES A DAY NEEDED FOR ABDOMINAL PAIN ?? Unchanged doxycycline (doxycycline monohydrate 100 mg oral tablet) 1 tab Oral (given by mouth) 2 times a day Pneumonia Duration: 7 Days Unchanged esomeprazole (NexIUM 20 mg oral delayed [...] FOR NAUSEA / VOMITING ?? [employer] Dental Dry Socket A dry socket is a condition that can occur after a tooth is pulled (extracted). After an extraction, blood fills in the hole (socket) where the tooth had been. Normally, this blood thickens (clots) and the blood clot protects the bone and nerves underneath until the gums grow over the open socket. A dry socket occurs when a blood clot does not properly form. It also occurs when the clot becomes dislodged or breaks up into parts. Without the blood clot, the bone and nerves are exposed to air, food, liquid, or anything else that enters the mouth. This can be very painful. What are the causes? This condition may be caused by: ? Blood not filling up the socket properly. This is more likely to occur following a difficult extraction but can occur following a simple extraction. During any extraction procedure, the force required to remove the tooth may close off the surrounding blood vessels in the wall of the socket. This decreased flow of blood to the socket childers increases the likelihood of a dry socket occurring. ? Anything that can dislodge a blood clot that is forming. For example, forceful spitting or sucking through a straw can pull a blood clot out of the socket. ? Anything that can decrease the quality of the clot. Dry socket occurs more frequently in smokers than in nonsmokers. What increases the risk? The following factors may make you more likely to develop this condition: ? Having lower teeth extracted. ? Having wisdom teeth extracted. ? Smoking. ? Drinking alcohol. ? Being female. ? Having poor oral hygiene. ? Having gum disease or an oral bacterial infection. ? Taking control pills. What are the signs or symptoms? Symptoms of this condition include: ? Severe, constant pain in the jaw or ear that is dull and throbbing. The pain often begins 2???3 days after your tooth was extracted. The pain may last about a week. ? Bad-smelling breath and a bad taste in your mouth. ? Exposed white bone in the tooth socket. How is this diagnosed? This condition is diagnosed based on your symptoms and an examination of the inside of your mouth. Your dental care provider will check to see if you have a blood clot in your tooth socket or if yourbone is visible. Although a dry socket cannot be diagnosed based on an imaging test, the exam may include X-rays of the area. These tests are done to rule out dental or health issues, such as a bone infection (osteomyelitis), fractured jaws, or a problem with nearby teeth. How is this treated? This condition will clear up on its own after 1???2 weeks unless an infection occurs. However, you may get treatment for pain, which may include: ? Soaking a gauze pad in a topical pain medicine and then placing it inside your tooth socket. This pad (dressing) may need to be replaced every 1???3 days until your pain eases. ? Taking NSAIDs such as ibuprofen. ? Taking a prescription pain medicine, if NSAIDs do not relieve your pain. Treatment may also include antibiotic medicine. Follow these instructions at home: Medicines ? Take mylc-epl-bqiwhgl and prescription medicines only as told by your dental care provider. ? If you were prescribed an antibiotic medicine, take it as told by your dental care provider. Do notstop taking the antibiotic even if you start to feel better. ? Ask your dental care provider if the medicine prescribed to you: ? Requires you to avoid driving or using machinery. ? Can cause constipation. You may need to take these actions to prevent or treat constipation: ? Drink enough fluid to keep your urine pale yellow. ? Take dwrn-omb-rkecrxr or prescription medicines. ? Eat foods that are high in fiber, such as beans, whole grains, and fresh fruits and vegetables. ? Limit foods that are high in fat and processed sugars, such as fried or sweet foods. Eating and drinking ? Do not drink through a straw until your dental care provider says it is okay. ? Eat cool, soft-textured foods as told by your dental care provider. ? Avoid hot drinks and spicy foods until your mouth has healed. ? Do not drink carbonated beverages or alcohol. General instructions ? [place] and floss your teeth every morning and night. Good oral hygiene is important. ? Avoid rinsing your mouth and using mouthwash during the healing period, as told by your dental careprovider. ? Do not use any products that contain nicotine or tobacco. These products include cigarettes, chewing tobacco, and vaping devices, such as e-cigarettes. If you need help quitting, ask your dental careprovider. ? Keep all follow-up visits. This is important. Contact a dental care provider if: ? You have pain that is not helped by medicine. ? You have a fever. This could be a sign of infection. ? Your mouth becomes tender and swollen. This could be a sign of infection. Get help right away if: ? You have uncontrolled bleeding, very noticeable swelling, or severe pain. ? You have difficulty swallowing. ? You cannot open your mouth. Summary ? Dry socket is a condition that can occur after a tooth is extracted. The bone and nerves become exposed to air, food, liquid, or anything else that enters the mouth. This can be very painful. ? This condition will clear up on its own after 1???2 weeks unless an infection occurs. You may get treatment for pain. You may also get antibiotic medicine. ? Take oilk-xyl-mbavdeg and prescription medicines only as told by your dental care provider. ? If you were prescribed an antibiotic medicine, take it as told by your dental care provider. Do notstop taking the antibiotic even if you start to feel better. ? Get help right away if you have uncontrolled bleeding, very noticeable swelling, or severe pain. This information is not intended to replace advice given to you by your health care provider. Make sure you discuss any questions you have with your health care provider. Document Revised: 08/01/2021 Document Reviewed: 08/01/2021 Else[employer] Patient Education ?? 2022 [employer] Tooth Injuries Tooth injuries include cracked or broken teeth, teeth that have been dislodged or moved out of place, and teeth that have been knocked out of the mouth. Severe tooth injuries need to be treated quickly to save the tooth. However, sometimes it is not possible to save a tooth after an injury, and the tooth may need to be removed. What are the causes? Tooth injuries may be caused by any force that is strong enough to chip, break, dislodge, or knock out a tooth. The injuries may come from: ? Sports accidents. ? Falls. ? Fights. What increases the risk? The following factors may make you more likely to lose a tooth: ? Playing contact sports, such as football or boxing, without using a mouth guard. ? Any medical condition that increases the risk of falling or fainting. ? Anything that causes injury to the face. ? Any condition that reduces the support of the root of the tooth. What are the signs or symptoms? Symptoms of this condition include a tooth that: ? May have moved out of position. ? May have moved into or out of the tooth socket. ? May not be visible in the gums, if the fracture was severe. Other symptoms of a tooth injury include: ? Pain, especially when chewing. ? A loose tooth. ? Bleeding in or around the tooth. ? Swelling or bruising near the tooth. ? Swelling or bruising of the lip over the injured tooth. ? Increased tooth sensitivity to heat and cold. ? A tooth that is knocked out of its place in the gum. How is this diagnosed? A tooth injury can be diagnosed with a complete history and a physical exam. You may also need dental X-rays to check for injuries to the root of the tooth. How is this treated? Treatment depends on the type of injury and its severity. Treatment may need to be done quickly to save your tooth. Possible treatments include: ? Replacing a tooth fragment with a filling, a cap, or a hard, protective cover (crown). This may be an option for a chip or fracture that does not affect the inside of your tooth. ? Repairing the inside of the tooth (root canal), if the dentist thinks it is necessary. ? The root canal usually needs to be done within a few days of the injury. This may be done to treat a tooth fracture that affects the pulp. ? Repositioning a dislodged tooth. ? Using a brace or splint to hold the tooth in place. ? Replacing a knocked-out tooth in the socket, if possible, and then doing a root canal. ? Extracting a tooth. This is done for a fracture that extends below the gums or a fracture that splits the tooth completely. ? Taking medicine, including: ? Pain medicine. ? Antibiotic medicine to help prevent infection. Follow these instructions at home: Medicines ? Take akrz-fqc-gsmqxzl and prescription medicines only as told by your dentist. ? Take your antibiotic medicine as told by your dentist. Do not stop taking the antibiotic even if you start to feel better. ? Do not drive or use heavy machinery while taking prescription pain medicine. Caring for your teeth ? Do not eat or chew on very hard objects. These include ice cubes, pens, pencils, hard candy, and popcorn kernels. ? Do not clench or grind your teeth. Tell your dentist if you grind your teeth while you sleep. ? [place] your teeth gently as directed by your dentist. ? Do not use your teeth to open packages. ? Always wear mouth protection when you play contact sports. Managing pain and swelling ? Gargle with a mixture of salt and water 3???4 times a day or as needed. To make salt water, completely dissolve ?1 tsp (3???6 g) of salt in 1 cup (237 mL) of warm water. ? If directed, apply ice to your mouth near the injured tooth: ? Put ice in a plastic bag. ? Place a towel between your skin and the bag. ? Leave the ice on for 20 minutes, 2???3 times a day. ? Remove the ice if your skin turns bright red. This is very important. If you cannot feel pain, heat, or cold, you have a greater risk of damage to the area. General instructions ? Do not use any products that contain nicotine or tobacco. These products include cigarettes, chewing tobacco, and vaping devices, such as e-cigarettes. If you need help quitting, ask your health careprovider. ? Your health care provider may recommend that you eat certain foods. This may include eating only soft foods. ? Check the injured area every day for signs of infection. Watch for: ? Redness, swelling, or pain. ? Fluid, blood, or pus. ? Keep all follow-up visits. This is important. Contact a dental care provider if: ? Your pain gets much worse, even after you take pain medicine. ? You have pus coming from the site of the tooth injury. ? You develop swelling near your injured tooth. ? You have a tooth splint, and it becomes loose. ? Your tooth becomes loose. Get help right away if: ? You have swelling in the face. ? You have a fever. ? You have bleeding near the tooth that does not stop in 10 minutes. ? You have trouble swallowing. ? You have trouble opening your mouth. ? Your permanent tooth comes out after it is repositioned. Summary ? Tooth injuries include cracked or broken teeth and teeth that have been dislodged or knocked out ofthe mouth. ? A tooth injury can be diagnosed with a medical history and a physical exam. You may also need dental X-rays to check for injuries to the root of the tooth. ? Treatment depends on the type of injury you have and its severity. Treatment may need to be done quickly to save your tooth. This information is not intended to replace advice given to you by your health care provider. Make sure you discuss any questions you have with your health care provider. Document Revised: 02/07/2021 Document Reviewed: 02/07/2021 Elsevier Patient Education ?? 2022 [employer] Patient/Location Manager Signature Patient Name:DESIRE SANCHEZ I have received this information and my questions have been answered. Patient/Location Manager Name: Patient/Location Manager Signature: Relationship to Patient: Witness Name/Signature: Date: Electronically Signed on: 04/26/2023 10:23 ESTSigned by:CRISTINA Patient Care team information Care Team Personnel Name: JARRELL HOUSER DO Position: No Access Member Role: Primary Care Physician Address: Address: [address] [id number]- Name: ANDREW Iraheta Position: Physician Member Role: Physician Address: Address: [address] [place] [id number]- Name: Pawel Medrano Position: Nurse Member Role: ED Nurse Care Team Related Persons Name: ARY SANCHEZ Name: MILLER SANCHEZ
--- OUTSIDE RECORDS SUMMARY | 2023-05-14 12:34 | XMS_ITS | Continuity of Care Document ---
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 Name Role Phone JARRELL HOUSER DO Primary Care Physician Encounter LTTL_PR FIN NBR [id number] Date(s): 02/13/23 - 02/13/23 [facility] [address] [place], [place] [address] Encounter Diagnosis Cholelithiasis(Discharge Diagnosis) - 02/13/23 Cholelithiasis without cholecystitis(Discharge Diagnosis) - 02/13/23 Discharge Disposition: Home f/u Internal Provider Attending Physician: Uday Díaz MD Admitting Physician: Uday Díaz MD Allergies, Adverse Reactions, Alerts Substance Reaction Severity Status codeine Unknown Active amoxicillin Vomiting symptom Moderate Active penicillin Moderate Active Assessment and Plan Future Appointments Functional Status 02/13/23 Family Member Travel History No recent t ravel Recent Travel History No recent travel Other [...] 0 Refill(s) Start Date: 09/22/22 Status: Ordered ondansetron 4 mg oral tablet 4 mg = 1 tab, Oral, TID, X 2 days, # 6 tab, 0 Refill(s), 02/15/23 10:29:00 AM CDT, Pharmacy: [facility], 177, cm, 02/13/23 9:14:00 EDT, Height/Length Dosing, 106.59, kg, 02/13/23 9:14:00 EDT, Weight Dosing Start Date: 02/13/23 Stop Date: 02/15/23 Status: Ordered Tums 500 mg oral tablet, chewable 500 mg = 1 tab, Chewed, BID, # 60 tab, 0 Refill(s) Start Date: 09/22/22 Status: Ordered Mental Status 02/13/23 Eye Opening Response [place] Spontaneous ly Best Verbal Response Arthur Oriented Best Motor Response [place] Obeys comman ds Arthur Coma Score 15 [...] Active 1elevated Results Laboratory List Name Date CBC w/ Diff 02/13/23 Comprehensive Metabolic Panel (CMP) 02/13 Lipase Level 02/13/23 Urinalysis with Microscopic if Indicated 02/13/23 Automated Diff 02/13/23 Most recent to oldest [Reference Range]: 1 WBC [4.8-10.8 K/mcL] 5.4 K/mcL (02/13/23 10:00 AM) RBC [4.20-6.10 Million/mcL] 3.80 Million /mcL *LOW* (02/13/23 10:00 AM) Neutro Auto [42.2-75.2 %] 64.5 % (02/13/23 10:00 AM) Lymph Auto [20.5-51.1 %] 20.6 % (02/13/23 10:00 AM) [place] Auto [1.7-9.3 %] 11.7 % *HI* (02/13/23 10:00 AM) Basophil Auto [0.0-0.8 %] 0.6 % (02/13/23 10:00 AM) BUN [8-26 mg/dL] 14 mg/dL (02/13/23 10:00 AM) UA Color LIGHT YELL *NA* (02/13/23 9:44 AM) Glucose Level [74-106 mg/dL] 110 mg/dL *HI* (02/13/23 10:00 AM) Potassium Level [3.5-5.1 mmol/L] 3.5 mmo l/L (02/13/23 10:00 AM) Baso Absolute [0.0-0.2 K/mcL] 0.0 K/mcL (02/13/23 10:00 AM) MCV [80.0-94.0 fL] 92.6 fL (02/13/23 10:00 AM) UA Urobilinogen [0.2] 0.2 (02/13/23 9:44 AM) UA Bili [Negative] Negative (02/13/23 9:44 AM) UA Ketones [Negative] Negative (02/13/23 9:44 AM) AST [15-41 IntlUnit/L] 70 IntlUnit/L *HI* (02/13/23 10:00 AM) ALT [17-63 IntlUnit/L] 42 IntlUnit/L (02/13/23 10:00 AM) MCHC [32.0-36.0 g/dL] 34.1 g/dL (02/13/23 10:00 AM) Osmolality [275-295 mOsm/kg] 273 mOsm/kg *LOW* (02/13/23 10:00 AM) Sodium Level [134-143 mmol/L] 136 mmol/L (02/13/23 10:00 AM) UA Leuk Est [Negative] Negative (02/13/23 9:44 AM) Lymph Absolute [1.2-3.4 K/mcL] 1.1 K/mcL *LOW* (02/13/23 10:00 AM) UA Nitrite [Negative] Negative (02/13/23 9:44 AM) UA Glucose [Negative] Negative (02/13/23 9:44 AM) Hct [42.0-52.0 %] 35.2 % *LOW* (02/13/23 10:00 AM) Lipase Level [18-51 unit/L] 26 unit/L 1 (02/13/23 10:00 AM) Calcium Level [8.9-10.3 mg/dL] 7.8 mg/dL *LOW* (02/13/23 10:00 AM) [place] Absolute [0.1-0.6 K/mcL] 0.6 K/mcL (02/13/23 10:00 AM) Albumin Level [3.5-5.0 g/dL] 3.8 g/dL (02/13/23 10:00 AM) Protein Total [6.5-8.1 g/dL] 7.7 g/dL (02/13/23 10:00 AM) UA Protein [Negative] Negative (02/13/23 9:44 AM) MCH [27.0-31.0 pg] 31.6 pg *HI* (02/13/23 10:00 AM) Neutro Absolute [1.4-6.5 K/mcL] 3.5 K/mc L (02/13/23 10:00 AM) Bilirubin Total [0.2-1.2 mg/dL] 0.4 mg/d L (02/13/23 10:00 AM) Hgb [14.0-18.0 g/dL] 12.0 g/dL *LOW* (02/13/23 10:00 AM) Alk Phos [38-130 IntlUnit/L] 98 IntlUnit /L (02/13/23 10:00 AM) UA Blood [Negative] Negative (02/13/23 9:44 AM) MPV [7.4-10.4 fL] 11.1 fL *HI* (02/13/23 10:00 AM) UA Spec Grav [1.001-1.030] 1.010 (02/13/23 9:44 AM) Platelets [130-400 K/mcL] 253 K/mcL (02/13/23 10:00 AM) CO2 [22-32 mmol/L] 29 mmol/L (02/13/23 10:00 AM) Eos Absolute [0.0-0.2 K/mcL] 0.1 K/mcL (02/13/23 10:00 AM) UA pH [5.00-9.00] 7.50 (02/13/23 9:44 AM) UA Appear [Clear] Clear (02/13/23 9:44 AM) Chloride Level [98-111 mmol/L] 99 mmol/L (02/13/23 10:00 AM) RDW-CV [11.5-14.5 %] 12.3 % (02/13/23 10:00 AM) A/G Ratio [1.0-2.5 g/dL] 1.0 g/dL (02/13/23 10:00 AM) BUN/Creat Ratio [8.0-20.0] 9.9 (02/13/23 10:00 AM) Globulin [2.3-3.5 g/dL] 3.9 g/dL *HI* (02/13/23 10:00 AM) Imm Gran Absolute 0.01 *NA* (02/13/23 10:00 AM) Imm Gran Auto [0.0-0.5 %] 0.2 % (02/13/23 10:00 AM) Slide Review Not Indicated (02/13/23 10:00 AM) Urine Srce Clean Catch (02/13/23 9:44 AM) Creatinine Level [0.61-1.24 mg/dL] 1.41 mg/dL *HI* (02/13/23 10:00 AM) Anion Gap [3.0-12.0] 8.0 (02/13/23 10:00 AM) Eos, Auto [0.00-3.00 %] 2.40 % (02/13/23 10:00 AM) eGFR CKD-EPI [>=60 mL/min/1.73 m2] 69 mL /min/1.73 m2 (02/13/23 10:00 AM) 1Interpretive Data: S-eqbkbx-v-benzoquinone imine (meabolite of Acetaminophen) will generate erroneously low lipase results in samples for patients that have taken toxic doses of acetaminophen. Radiology Reports * Exam Date Time Procedure Performing Provider Status 02/13/23 10:58 AM US Abdomen Limited Malu Morrell; Auth (Verified) Notes: (US Abdomen Limited) Reason For Exam: ruq pain US Abdomen Limited EXAM DESCRIPTION: US Abdomen Limited 02/13/2023 INDICATION: RUQ PAIN TECHNIQUE: Grayscale and color Doppler ultrasound examination of the right upper quadrant region of the abdomen. COMPARISON: None FINDINGS: Liver measures 16.6 cm in maximum dimension. Mild diffusely increased hepatic echogenicity suggesting hepatic steatosis. No focal hepatic lesion identified. The main portal vein is patent with normal flow direction. No ascites in the right upper quadrant The pancreas is obscured by overlying bowel gas Multiple echogenic, shadowing gallstones in the gallbladder. No gallbladder wall thickening or pericholecystic fluid. No biliary dilatation with common bile duct diameter of 4.4 mm Positive sonographic Cedillo sign Right kidney measures 11.7 cm in maximum dimension. No focal right renal mass, hydronephrosis or perinephric fluid collection. IMPRESSION: Cholelithiasis. No gallbladder wall thickening or pericholecystic fluid. No biliary dilatation. Positive sonographic Cedillo sign. Findings suggesting hepatic steatosis. JOB #: [id number] Final Signed by: John Burciaga MD Signed (Electronic Signature): 02/13/2023 11:04 am * Exam Date Time Procedure Performing Provider Status 02/13/23 9:18 AM XR Abdomen 2 Views Sydnee Hernandez; Alex (Verified) Notes: (XR Abdomen 2 Views) Reason For Exam: pain XR Abdomen 2 Views EXAM DESCRIPTION: XR Abdomen 2 Views 02/13/2023 INDICATION: PAIN COMPARISON: None IMPRESSION: Normal bowel gas pattern. No bowel dilatation to suggest obstruction or ileus. No evidence of free intraperitoneal air. Small ovoid calcification in the right aspect of the pelvis most consistent with phlebolith The visualized lung bases are clear. JOB #: [id number] Final Signed by: John Burciaga MD Signed (Electronic Signature): 02/13/2023 9:22 am Vital Signs Most recent to oldest [Reference Range]: 1 Temperature Tympanic [36.6-37.9 Deg C] 3 6.4 Deg C *LOW* (02/13/23 8:54 AM) Peripheral Pulse Rate [60-100 bpm] 88 bp m (02/13/23 8:54 AM) Respiratory Rate [12-24 br/min] 17 br/mi n (02/13/23 8:54 AM) Blood Pressure [90-140/60-90 mmHg] 121/8 3mmHg (02/13/23 8:54 AM) Weight 106.59 kg (02/13/23 8:54 AM) Weight Dosing 106.59 kg (02/13/23 9:14 AM) Height 177.000 cm (02/13/23 8:54 AM) Height/Length Dosing 177.000 cm (02/13/23 9:14 AM) Body Mass Index 34.000 kg/m2 (02/13/23 8:54 AM) Social History Social History Type Response Tobacco Never tobacco user T obacco Use:. Sex Hospital Discharge Instructions Patient Education 02/13/2023 10:29:02 Cholelithiasis Cholelithiasis Cholelithiasis is a disease in [...] these instructions at home: Medicines ??? Take phcy-cjr-avenrrs and prescription medicines only as told by [...] Where to find more information ??? National [place] of Diabetes and Digestive and Kidney Diseases: [...] provider. Document Revised: 04/24/2020 Document Reviewed: 04/24/2020 [employer] Patient Education ?? 2022 [employer]. Follow Up Care 02/13/2023 08:54:50 With:Marlo Urbina MD Address: [facility] [address] [place] [address]- When:1 week Physician Emergency department Note * Mariann Mckeon MD: PERFORM Event Display: ED Note Physician Authored Date: [id number] DESIRE SANCHEZ :1995 Age:27 years Sex:Male Visit Date:02/13/2023 Primary Care Physician: JARRELL HOUSER DO Basic Information Time Seen: Mariann Mckeon MD / 02/13/2023 09:36 Chief Complaint no BM weeks per patient ??. ?? pt states is pasing gas , eating but stomach pain after meals . ??Takes senakot , miralx ??as prescribed History Of Present Illness: This patient is a??27-year-old male with a history of chronic methadone use who presents emergency department today for evaluation of abdominal pain. ??The patient states he has not had a bowel movement in several weeks??which she thinks is likely due to his methadone use. ??He??states that he has been using what sounds like MiraLAX and also senna without any improvement.?? He states that they will??right upper quadrant pain anytime after he attempts to eat. ??This morning he had cereal??and itcaused him to have severe sharp??right upper quadrant pain.?? The patient??has also had some vomiting yesterday although none today. ??No diarrhea or fever.?? No??hematemesis??or??hematochezia.?? No prior abdominal surgeries.?? Patient has not previously seen??gastroenterology for his chronic??constipation Review of Systems: CONSTITUTIONAL:??No fevers or chills. EYES:??No change in vision. ENT:??No sore throat. ??No headache. ??No neck pain. CARDIOVASCULAR:??No chest pain, palpitations or passing out episodes. RESPIRATORY:??No cough, shortness of breath or hemoptysis. GI:??Right upper quadrant abdominal pain. +nausea, +vomiting no diarrhea. :??No change in urination. SKIN:??No rash. NEUROLOGIC:??No numbness or weakness. MUSCULOSKELETAL:??No swelling or pain. PSYCHIATRIC:??No depression. LYMPH:??No swelling. Review of systems otherwise as stated in HPI Physical Exam Vitals & Measurements T:??36.4?C ??(Tympanic)?? HR:??88??(Peripheral)?? RR:??17?? BP:??121/83?? SpO2:??98%?? HT:??177.000??cm?? WT:??106.59??kg?? BMI:??34.000?? Pain Score:??6?? General: ??AAOx3. ??GCS15. ??No acute distress, answering questions appropriately.?? Obese male. Head: ??Atraumatic; Normocephalic Eye: ??PERRLA; EOMI; no scleral icterus / pallor ENT: moist mucous membranes; no epistaxis. No stridor. Neck: ??Active ROM intact; Trachea Midline. ??No JVD. ??No meningismus appreciated. Skin: Warm, dry Chest: ??Equal BS bilaterally. ??Clear to auscultation bilaterally. Heart: RRR; no murmur, rub, or gallop Abdomen: ??Soft, right upper quadrant tenderness to palpation, non-distended, no guarding, rebound,or rigidity. No Hepatosplenomegaly Musculoskeletal: ??ROM intact of all extremities/joints without discomfort. ??Sensation grossly intact throughout. ??No obvious deformity. ??Strength Intact 5/5 throughout. ?? Neuro: Alert and oriented. Answering questions appropriately with clear speech. Motor and sensory grossly normal in all extremities.?? Medical Decision Making: Patient is a 27-year-old male??with history of chronic constipation??and methadone use who presentsemergency department today for evaluation of??constipation and right upper quadrant abdominal pain.?? Patient had right upper quadrant tenderness to palpation associated with eating. ??Gallbladder ult rasound was ordered.?? Has evidence of cholelithiasis but no cholecystitis or obstruction.?? Patient's LFTs are normal and white blood cell count is normal. ??I spoke with ??Angus??who states the patient should follow-up outpatient with either Dr. Kessler or .?? Referral was sent. ??Patient was in agreement with plan. ??We discussed following a low??fat diet??in the interim. ??Patient was comfortable with plan for discharge home. ??As I entered the room to discuss discharge planning with him he was??resting comfortably. Procedure No Qualifying Data Assessment/Plan 1.??Cholelithiasis without cholecystitis??K80.20,??Cholelithiasis??K80.20 Ordered: ondansetron 4 mg oral tablet, 4 mg = 1 tab, Oral, TID, X 2 days, # 6 tab, 0 Refill(s), 02/15/23 11:29:00 EDT, Pharmacy: [facility], 177, cm, 02/13/23 9:14:00 EDT, Height/Length Dosing, 106.59, kg, 02/13/23 9:14:00 EDT, Weight Dosing ?? Patient Education Cholelithiasis Follow Up With When Contact Information Marlo Urbina MD Within 1 week [facility] [address] [place] [id number]- Additional Instructions: Medication Reconciliation New Prescription ondansetron (ondansetron 4 mg oral tablet)1 tab Oral (given by mouth) 3 times a day for 2 Days. Refills: 0. ?? Unchanged acetaminophen (acetaminophen 325 [...] Historical No qualifying data Allergies amoxicillin??(Vomiting symptom) penicillin codeine Social History [...] FATHER, at age: Unknown. Cause of : Referral Orders Referral Management, Medical Service: General Surgery, Reason: symptomatic cholilithiasis, Start: 02/13/23 Diagnostic Results US Abdomen Limited 02/13/2023 11:07 EDT XR Abdomen 2 Views 02/13/2023 09:25 EDT US Abdomen Limited ?? 02/13/23 11:04:40 EXAM DESCRIPTION: US Abdomen Limited ?? 02/13/2023 ?? INDICATION: RUQ PAIN ?? TECHNIQUE: Grayscale and color Doppler ultrasound examination of the right upper quadrant region of the abdomen. ?? COMPARISON: None ?? FINDINGS: Liver measures 16.6 cm in maximum dimension. Mild diffusely increased hepatic echogenicity suggesting hepatic steatosis. No focal hepatic lesion identified. The main portal vein is patent with normal flow direction. No ascites in the right upper quadrant ?? The pancreas is obscured by overlying bowel gas ?? Multiple echogenic, shadowing gallstones in the gallbladder. No gallbladder wall thickening or pericholecystic fluid. No biliary dilatation with common bile duct diameter of 4.4 mm ?? Positive sonographic Cedillo sign ?? Right kidney measures 11.7 cm in maximum dimension. No focal right renal mass, hydronephrosis or perinephric fluid collection. ?? IMPRESSION: Cholelithiasis. No gallbladder wall thickening or pericholecystic fluid. No biliary dilatation. ?? Positive sonographic Cedillo sign. ?? Findings suggesting hepatic steatosis. ? JOB #: [id number] Electronically Signed By: ?? Signed By: John Burciaga MD ?? XR Abdomen 2 Views ?? 02/13/23 09:22:43 EXAM DESCRIPTION: XR Abdomen 2 Views ?? 02/13/2023 ?? INDICATION: PAIN ?? COMPARISON: None ?? IMPRESSION: Normal bowel gas pattern. No bowel dilatation to suggest obstruction or ileus. ?? No evidence of free intraperitoneal air. ?? Small ovoid calcification in the right aspect of the pelvis most consistent with phlebolith ?? The visualized lung bases are clear. ? JOB #: [id number] Electronically Signed By: ?? Signed By: Gualberto HERNANDEZ, John Lab Results CBC and Differential?? LATEST RESULTS?? HISTORICAL RESULTS?? WBC?? 02/13/23 10:00?? 5.4?? 02/01/23?? 7.1?? RBC?? 02/13/23 10:00?? 3.80 ??Low?? 02/01/23?? 3.75 ??Low?? Hgb?? 02/13/23 10:00?? 12.0 ??Low?? 02/01/23?? 12.0 ??Low?? Hct?? 02/13/23 10:00?? 35.2 ??Low?? 02/01/23?? 34.4 ??Low?? MCV?? 02/13/23 10:00?? 92.6?? 02/01/23?? 91.7?? MCH?? 02/13/23 10:00?? 31.6 ??High?? 02/01/23?? 32.0 ??High?? MCHC?? 02/13/23 10:00?? 34.1?? 02/01/23?? 34.9?? RDW-CV?? 02/13/23 10:00?? 12.3?? 02/01/23?? 12.4?? Platelets?? 02/13/23 10:00?? 253?? 02/01/23?? 248?? MPV?? 02/13/23 10:00?? 11.1 ??High?? 02/01/23?? 11.5 ??High?? Neutro Auto?? 02/13/23 10:00?? 64.5?? 02/01/23?? 58.9?? Lymph Auto?? 02/13/23 10:00?? 20.6?? 02/01/23?? 26.6?? [place] Auto?? 02/13/23 10:00?? 11.7 ??High?? 02/01/23?? 11.5 ??High?? Eos, Auto?? 02/13/23 10:00?? 2.40?? 02/01/23?? 2.10?? Basophil Auto?? 02/13/23 10:00?? 0.6?? 02/01/23?? 0.6?? Imm Gran Auto?? 02/13/23 10:00?? 0.2?? 02/01/23?? 0.3?? Neutro Absolute?? 02/13/23 10:00?? 3.5?? 02/01/23?? 4.2?? Lymph Absolute?? 02/13/23 10:00?? 1.1 ??Low?? 02/01/23?? 1.9?? [place] Absolute?? 02/13/23 10:00?? 0.6?? 02/01/23?? 0.8 ??High?? Eos Absolute?? 02/13/23 10:00?? 0.1?? 02/01/23?? 0.2?? Baso Absolute?? 02/13/23 10:00?? 0.0?? 02/01/23?? 0.0?? Imm Gran Absolute?? 02/13/23 10:00?? 0.01?? 02/01/23?? 0.02?? Slide Review?? 02/13/23 10:00?? Not Indicated?? 01/27/23?? Not Indicated? Routine Chemistry?? LATEST RESULTS?? HISTORICAL RESULTS?? Sodium Level?? 02/13/23 10:00?? 136?? 02/01/23?? 136?? Potassium Level?? 02/13/23 10:00?? 3.5?? 02/01/23?? 3.8?? Chloride Level?? 02/13/23 10:00?? 99?? 02/01/23?? 99?? CO2?? 02/13/23 10:00?? 29?? 02/01/23?? 30?? Alk Phos?? 02/13/23 10:00?? 98?? 02/01/23?? 101?? AST?? 02/13/23 10:00?? 70 ??High?? 02/01/23?? 37?? ALT?? 02/13/23 10:00?? 42?? 02/01/23?? 29?? BUN?? 02/13/23 10:00?? 14?? 02/01/23?? 17?? Glucose Level?? 02/13/23 10:00?? 110 ??High?? 02/01/23?? 114 ??High?? Creatinine Level?? 02/13/23 10:00?? 1.41 ??High?? 02/01/23?? 1.51 ??High?? BUN/Creat Ratio?? 02/13/23 10:00?? 9.9?? 02/01/23?? 11.3?? eGFR CKD-EPI?? 02/13/23 10:00?? 69?? 02/01/23?? 64?? Calcium Level?? 02/13/23 10:00?? 7.8 ??Low?? 02/01/23?? 9.1?? Protein Total?? 02/13/23 10:00?? 7.7?? 02/01/23?? 7.3?? Albumin Level?? 02/13/23 10:00?? 3.8?? 02/01/23?? 3.5?? Globulin?? 02/13/23 10:00?? 3.9 ??High?? 02/01/23?? 3.8 ??High?? A/G Ratio?? 02/13/23 10:00?? 1.0?? 02/01/23?? 0.9 ??Low?? Bilirubin Total?? 02/13/23 10:00?? 0.4?? 02/01/23?? 0.7?? Anion Gap?? 02/13/23 10:00?? 8.0?? 02/01/23?? 7.0?? Lipase Level?? 02/13/23 10:00?? 26?? 12/18/22?? 25?? Osmolality?? 02/13/23 10:00?? 273 ??Low?? 02/01/23?? 274 ??Low? UA Macroscopic?? LATEST RESULTS?? HISTORICAL RESULTS?? Urine Srce?? 02/13/23 09:44?? Clean Catch?? 09/08/22?? Clean Catch?? UA Color?? 02/13/23 09:44?? LIGHT YELL?? 02/01/23?? Yellow?? UA Appear?? 02/13/23 09:44?? Clear?? 02/01/23?? Slightly Cloudy Abnormal?? UA Glucose?? 02/13/23 09:44?? Negative?? 02/01/23?? Negative?? UA Bili?? 02/13/23 09:44?? Negative?? 02/01/23?? Negative?? UA Ketones?? 02/13/23 09:44?? Negative?? 02/01/23?? Negative?? UA Spec Grav?? 02/13/23 09:44?? 1.010?? 02/01/23?? 1.015?? UA Blood?? 02/13/23 09:44?? Negative?? 02/01/23?? Negative?? UA pH?? 02/13/23 09:44?? 7.50?? 02/01/23?? 7.50?? UA Protein?? 02/13/23 09:44?? Negative?? 02/01/23?? Negative?? UA Urobilinogen?? 02/13/23 09:44?? 0.2?? 02/01/23?? 0.2?? UA Nitrite?? 02/13/23 09:44?? Negative?? 02/01/23?? Negative?? UA Leuk Est?? 02/13/23 09:44?? Negative?? 02/01/23?? Negative? Electronically Signed on 02/13/23 11:30 AM Mariann Mckeon MD Emergency department Discharge instructions * Mariann Mckeon MD: PERFORM Event Display: ED Discharge Information Authored Date: [id number] DESIRE SANCHEZ :1995 Age:27 years Sex:Male Visit Date:02/13/2023 Primary Care Physician: CORRINA AVILA, JARRELL MEYER Discharge Instructions We would like to thank you for allowing us to assist you with your healthcare needs. The following includes patient education materials and information regarding your injury/illness. Diagnosis from Today's Visit Cholelithiasis without cholecystitis Cholelithiasis Discharge Vitals Temperature??(Tympanic) 97.5 ??F (36.4 ??C) Heart Rate??(Peripheral) 88 Respiratory Rate?? 17 Blood Pressure?? 121/83?? Height?? 69.69 in (177.000 cm) Weight?? 235.03 lb (106.59 kg) BMI?? 34.000 Allergies amoxicillin??(Vomiting symptom) penicillin codeine What to Do Next You Need to Schedule the Following Appointments Follow Up with??Marlo Urbina MD When:??Within 1 week Where: [facility] [address] [place], [place] [phone] You were treated today on an emergency [...] Dose New ondansetron (ondansetron 4 mg oral tablet) 1 tab Oral (given by mouth) 3 times a day Cholelithiasis without cholecystitis Duration: 2 Days Pickup at [facility] Unchanged acetaminophen (acetaminophen 325 mg [...] as needed for as needed for pain Pharmacy Information [facility]: [address] [facility] [place] [id number] [phone] Education Materials Cholelithiasis Cholelithiasis is a disease in which [...] these instructions at home: Medicines ? Take hdwm-ath-jxhqskw and prescription medicines only as told by [...] Where to find more information ? National [place] of Diabetes and Digestive and Kidney Diseases: [...] provider. Document Revised: 04/24/2020 Document Reviewed: 04/24/2020 [employer] Patient Education ?? 2022 [employer] Tests Performed Radiology US Abdomen Limited 02/13/2023 11:07 EDT XR Abdomen 2 Views 02/13/2023 09:25 EDT Lab Test Name Test Result Date/Time WBC 5.4 K/mcL 02/13/2023 10:00 EDT RBC 3.80 Million/mcL 02/13/2023 10:00 EDT Hgb 12.0 g/dL 02/13/2023 10:00 EDT Hct 35.2 % 02/13/2023 10:00 EDT MCV 92.6 fL 02/13/2023 10:00 EDT MCH 31.6 pg 02/13/2023 10:00 EDT MCHC 34.1 g/dL 02/13/2023 10:00 EDT RDW-CV 12.3 % 02/13/2023 10:00 EDT Platelets 253 K/mcL 02/13/2023 10:00 EDT MPV 11.1 fL 02/13/2023 10:00 EDT Neutro Auto 64.5 % 02/13/2023 10:00 EDT Lymph Auto 20.6 % 02/13/2023 10:00 EDT [place] Auto 11.7 % 02/13/2023 10:00 EDT Eos, Auto 2.40 % 02/13/2023 10:00 EDT Basophil Auto 0.6 % 02/13/2023 10:00 EDT Imm Gran Auto 0.2 % 02/13/2023 10:00 EDT Neutro Absolute 3.5 K/mcL 02/13/2023 10:00 EDT Lymph Absolute 1.1 K/mcL 02/13/2023 10:00 EDT [place] Absolute 0.6 K/mcL 02/13/2023 10:00 EDT Eos Absolute 0.1 K/mcL 02/13/2023 10:00 EDT Baso Absolute 0.0 K/mcL 02/13/2023 10:00 EDT Imm Gran Absolute 0.01 02/13/2023 10:00 EDT Slide Review Not Indicated 02/13/2023 10:00 EDT Sodium Level 136 mmol/L 02/13/2023 10:00 EDT Potassium Level 3.5 mmol/L 02/13/2023 10:00 EDT Chloride Level 99 mmol/L 02/13/2023 10:00 EDT CO2 29 mmol/L 02/13/2023 10:00 EDT Alk Phos 98 IntlUnit/L 02/13/2023 10:00 EDT AST 70 IntlUnit/L 02/13/2023 10:00 EDT ALT 42 IntlUnit/L 02/13/2023 10:00 EDT BUN 14 mg/dL 02/13/2023 10:00 EDT Glucose Level 110 mg/dL 02/13/2023 10:00 EDT Creatinine Level 1.41 mg/dL 02/13/2023 10:00 EDT BUN/Creat Ratio 9.9 02/13/2023 10:00 EDT eGFR CKD-EPI 69 mL/min/1.73 m2 02/13/2023 10:00 EDT Calcium Level 7.8 mg/dL 02/13/2023 10:00 EDT Protein Total 7.7 g/dL 02/13/2023 10:00 EDT Albumin Level 3.8 g/dL 02/13/2023 10:00 EDT Globulin 3.9 g/dL 02/13/2023 10:00 EDT A/G Ratio 1.0 g/dL 02/13/2023 10:00 EDT Bilirubin Total 0.4 mg/dL 02/13/2023 10:00 EDT Anion Gap 8.0 02/13/2023 10:00 EDT Lipase Level 26 unit/L 02/13/2023 10:00 EDT Osmolality 273 mOsm/kg 02/13/2023 10:00 EDT Urine Srce Clean Catch 02/13/2023 09:44 EDT UA Color LIGHT YELL 02/13/2023 09:44 EDT UA Appear CLEAR. 02/13/2023 09:44 EDT UA Glucose NEGATIVE 02/13/2023 09:44 EDT UA Bili NEGATIVE 02/13/2023 09:44 EDT UA Ketones NEGATIVE 02/13/2023 09:44 EDT UA Spec Grav 1.010 02/13/2023 09:44 EDT UA Blood NEGATIVE 02/13/2023 09:44 EDT UA pH 7.50 02/13/2023 09:44 EDT UA Protein NEGATIVE 02/13/2023 09:44 EDT UA Urobilinogen 0.2 02/13/2023 09:44 EDT UA Nitrite NEGATIVE 02/13/2023 09:44 EDT UA Leuk Est NEGATIVE 02/13/2023 09:44 EDT Patient/[employer] Packages Leak Tester Signature Patient Name:DESIRE SANCHEZ I have received this information and my questions have been answered. Patient/[employer] Leak Tester Name: Patient/[employer] Leak Tester Signature: Relationship to Patient: Witness Name/Signature: Date: Electronically Signed on: 02/13/2023 11:30 EDTSigned by:AF Patient Care team information Care Team Personnel Name: JARRELL HOUSER DO Position: No Access Member Role: Primary Care Physician Address: Address: [id number] [place] [address] Name: Mariann Mckeon MD Position: Physician Member Role: ED Physician Address: Address: [address] [place] [address] Name: Dian Troncoso Position: Nurse Member Role: ED Nurse Care Team Related Persons Name: ARY SANCHEZ Address: Home Name: MILLER SANCHEZ Address: Home
--- OUTSIDE RECORDS SUMMARY | 2023-05-14 12:34 | XMS_ITS | Continuity of Care Document ---
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 Name Role Phone JARRELL HOUSER DO Primary Care Physician Encounter [facility] NBR [id number] Date(s): 01/08/23 - 01/08/23 [facility] [address] [place] [address] [place] Encounter Diagnosis Back pain(Discharge Diagnosis) - 01/08/23 Venous stasis syndrome(Discharge Diagnosis) - 01/08/23 Discharge Disposition: Home f/u Internal Provider Attending Physician: Cj Allan MD Admitting Physician: Cj Allan MD Allergies, Adverse Reactions, Alerts Substance Reaction Severity Status codeine Unknown Active amoxicillin Vomiting symptom Moderate Active penicillin Moderate Active Functional Status 01/08/23 Family Member Travel History No recent t [...] forms, # 12 cap, 0 Refill(s), Pharmacy: [id number], 178, cm, 12/18/22 13:10:00 EDT, Height/Length [...] Start Date: 09/22/22 Status: Ordered Mental Status 01/08/23 Eye Opening Response [place] Spontaneous ly Best Verbal Response Arthur Oriented Best Motor Response Arthur Obeys comman ds [place] Coma Score 15 Problem List Condition Confirmation [...] Date Time Procedure Performing Provider Status 01/08/23 11:35 AM MRI Spine Lumbar w/o Contrast Vignesh singleton, Maryam; Auth (Verified) Notes: (MRI Spine Lumbar w/o Contrast) Reason For Exam: LLE sensory and proprioception loss MRI Spine Lumbar w/o Contrast EXAM DESCRIPTION: MRI Spine Lumbar w/o Contrast 01/08/2023 INDICATION: LLE SENSORY AND PROPRIOCEPTION LOSS TECHNIQUE: Multiplanar MRI examination of the lumbar spine utilizing T1, fat-suppressed T2 and fast STIR technique. COMPARISON: None FINDINGS: Lumbar lordosis is satisfactory. No scoliosis. Loss of intervertebral disc signal intensity at L5-S1 on sagittal T2-weighted images consistent with mild desiccation and degeneration. Remaining intervertebral discs demonstrate normal stature and signal intensity throughout the lumbar region L5-S1: Mild broad-based central disc extrusion with small central annular tear. No significant spinal stenosis or thecal sac deformity with AP spinal canal diameter of 14 mm. No neural foraminal narrowing L4-5: No focal disc protrusion, significant spinal stenosis or neural foraminal narrowing. L3-4: No focal disc protrusion, significant spinal stenosis or neural foraminal narrowing. L2-3: No focal disc protrusion, significant spinal stenosis or neural foraminal narrowing. L1-2: No focal disc protrusion, significant spinal stenosis or neural foraminal narrowing. No significant stenosis in the visualized lower thoracic spine The conus is normal in morphology and signal intensity and terminates at the T12-L1 level. No suspicious regional marrow lesions. No vertebral body compression deformity in the lumbar region. Paraspinal soft tissues are unremarkable. IMPRESSION: Mild broad-based central disc extrusion at L5-S1 without significant stenosis Remaining levels demonstrate no focal disc protrusion or significant stenosis Normal conus. JOB #: [id number] Final Signed by: John Burciaga MD Signed (Electronic Signature): 01/08/2023 11:45 am Vital Signs Most recent to oldest [Reference Range]: 1 Temperature Oral [35.8-37.3 Deg C] 36.7 Deg C (01/08/23 9:22 AM) Peripheral Pulse Rate [60-100 bpm] 73 bp m (01/08/23 9:22 AM) Respiratory Rate [12-24 br/min] 17 br/mi n (01/08/23 9:22 AM) Blood Pressure [90-140/60-90 mmHg] 124/6 8mmHg (01/08/23 9:22 AM) Weight 106.59 kg (01/08/23 9:22 AM) Weight Dosing 106.59 kg (01/08/23 9:38 AM) Height 177.000 cm (01/08/23 9:22 AM) Height/Length Dosing 177.000 cm (01/08/23 9:38 AM) Body Mass Index 34.000 kg/m2 (01/08/23 9:22 AM) Social History Social History Type Response Tobacco Never tobacco user T obacco Use:. Sex Hospital Discharge Instructions Patient Education 01/08/2023 11:55:03 Acute Back Pain, Adult Acute Back Pain, Adult Acute back pain is sudden and usually short-lived. It is often caused by an injury to the muscles and tissues in the back. The injury may result from: ??? A muscle, tendon, or ligament getting overstretched or torn. Ligaments are tissues that connectbones to each other. Lifting something improperly can cause a back strain. ??? Wear and tear (degeneration) of the spinal disks. Spinal disks are circular tissue that providecushioning between the bones of the spine (vertebrae). ??? Twisting motions, such as while playing sports or doing yard work. ??? A hit to the back. ??? Arthritis. You may have a physical exam, lab tests, and imaging tests to find the cause of your pain. Acute back pain usually goes away with rest and home care. Follow these instructions at home: Managing pain, stiffness, and swelling ??? Take eibd-gbb-nhuwfkb and prescription medicines only as told by your health care provider. Treatment may include medicines for pain and inflammation that are taken by mouth or applied to the skin, or muscle relaxants. ??? Your health care provider may recommend applying ice during the first 24???48 hours after your pain starts. To do this: ??? Put ice in [...] greater risk of damage to the area. ??? If directed, apply heat to the [...] to feel pain, heat, or cold. You have a greater risk of getting burned. Activity ??? Do not stay in bed. Staying in bed for more than 1???2 days can delay your recovery. ??? Sit up and stand up straight. Avoid leaning forward when you sit or hunching over when you stand. ??? If you work at a desk, sit close to it so you do not need to lean over. Keep your chin tucked in. Keep your neck drawn back, and keep your elbows bent at a 90-degree angle (right angle). ??? Sit high and close to the steering wheel when you drive. Add lower back (lumbar) support to your car seat, if needed. ??? Take short walks on even surfaces as soon as you are able. Try to increase the length of time you walk each day. ??? Do not sit, drive, or ic designer standard cells one place for more than 30 minutes at a time. Sitting or standing for long periods of time can put stress on your back. ??? Do not drive or use heavy machinery while taking prescription pain medicine. ??? Use proper lifting techniques. When you bend and lift, use positions that put less stress on your back: ??? Bend your knees. ??? Keep the load close to your body. ??? Avoid twisting. ??? Exercise regularly as told by your health care provider. Exercising helps your back heal fasterand helps prevent back injuries by keeping muscles strong and flexible. ??? Work with a physical therapist to make a safe exercise program, as recommended by your health care provider. Do any exercises as told by your physical therapist. Lifestyle ??? Maintain a healthy weight. Extra weight puts stress on your back and makes it difficult to havegood posture. ??? Avoid activities or situations that make you feel anxious or stressed. Stress and anxiety increase muscle tension and can make back pain worse. Learn ways to manage anxiety and stress, such as through exercise. General instructions ??? Sleep on a firm mattress in a comfortable position. Try lying on your side with your knees slightly bent. If you lie on your back, put a pillow under your knees. ??? Keep your head and neck in a straight line with your spine (neutral position) when using electronic equipment like smartphones or pads. To do this: ??? Raise your smartphone or pad to look at it instead of bending your head or neck to look down. ??? Put the smartphone or pad at the level of your face while looking at the screen. ??? Follow your treatment plan as told by your health care provider. This may include: ??? Cognitive or behavioral therapy. ??? Acupuncture or massage therapy. ??? Meditation or yoga. Contact a health care provider if: ??? You have pain that is not relieved with rest or medicine. ??? You have increasing pain going down into your legs or buttocks. ??? Your pain does not improve after 2 weeks. ??? You have pain at night. ??? You lose weight without trying. ??? You have a fever or chills. ??? You develop nausea or vomiting. ??? You develop abdominal pain. Get help right away if: ??? You develop new bowel or bladder control problems. ??? You have unusual weakness or numbness in your arms or legs. ??? You feel faint. These symptoms may represent a serious problem that is an emergency. Do not wait to see if the symptoms will go away. Get medical help right away. Call your local emergency services (911 in the [place] Do not drive yourself to the hospital. Summary ??? Acute back pain is sudden and usually short-lived. ??? Use proper lifting techniques. When you bend and lift, use positions that put less stress on your back. ??? Take jshg-roc-btfpmdx and prescription medicines only as told by your health care provider, andapply heat or ice as told. This information is not intended to replace advice given to you by your health care provider. Make sure you discuss any questions you have with your health care provider. Document Revised: 08/24/2021 Document Reviewed: 08/24/2021 Elsevier Patient Education ?? 2022 [employer] Follow Up Care 01/08/2023 09:22:27 With:JARRELL HOUSER DO Address: [facility] [address] [place] [phone] When:1 to 2 weeks only if needed Discharge instructions * Event Display: Discharge Instructions Physician Emergency department Note * Cj Allan MD: PERFORM Event Display: ED Note Physician Authored Date: [id number] PEDRO PABLO SANCHEZ :1995 Age:27 years Sex:Male Visit Date:01/08/2023 Primary Care Physician: JARRELL HOUSER DO Basic Information Time Seen: Cj Allan MD / 01/08/2023 09:25 Chief Complaint seen last night US this am , pt presents from US . c/o gigi feet hurt History Of Present Illness: 27-year-old male with multiple ED visits?? presents to the emergency department after his lower extremity ultrasound to rule out DVT. ??He saw Dr. Mckeon last night.?? He was notified that his DVT showed no??signs of thromboembolic??disease. ??He stated he want to be reevaluated because of??multiple complaints.?? His primary complaint was back pain and left lower extremity paresthesias.?? He states that these have been worse over a day or 2.?? He states??it feels prickly.?? Initially he stated theright side as well but then??primarily in the left side.?? No loss of bowel or bladder function. Review of Systems: Positives on review of systems including: Shortness of breath, palpitations, sweating,??diffuse paresthesias,??weakness generally,??more frequent urination but no dysuria or gross hematuria.?? No stool incontinence. ??No blood in urine or stool.?? No vomiting. Physical Exam Vitals & Measurements T:??36.7?C ??(Oral)?? HR:??73??(Peripheral)?? RR:??17?? BP:??124/68?? SpO2:??97%?? HT:??177.000??cm?? WT:??106.59??kg?? BMI:??34.000?? Pain Score:??6?? Physical exam reveals an alert interactive male??who appears slightly nervous with a??mildly depressed affect.?? Head neck exam unremarkable. ??Normal range of motion. Chest clear without wheezes or crackles. ??Heart sounds normal without murmur or extra sound. Back reveals unremarkable range of motion. Examination of his affected lower extremity reveals subjective decreased pinprick sensation in a stocking distribution??from the lower third of the tibia distally. ??There is palpable dorsalis pedis and posterior tibial pulse and normal cap refill.?? Proprioception is subjectively decreased on the left as compared to the right.?? Light touch is symmetric.?? Strength is 4+ out of 5 on the left both in dorsi and plantarflexion and 5 out of 5 on the right.?? He is somewhat inconsistent and stuttering in his strength on the left??when pushed. Medical Decision Making: Due to the asymmetric subjective neurologic findings associated with back pain, lumbar MRI was??obtained??without any significant findings. ??There is a mild disc protrusion at L5-S1 that was insignificant regarding symptoms.?? This is very reassuring.?? The neurologic findings were concerning but in a patient who had a??somewhat positive functional inquiry and??multiple ED visits with??a varietyof complaints,??probability of an acute medical condition was felt low. ??Primary care follow-up and consideration of neurology??referral??and/or physical therapy referral felt most appropriate. ?? The swelling was extremely mild nonpitting and??markedly improved with elevation and compression. ??He has compression stockings. Procedure No Qualifying Data Assessment/Plan 1.??Back pain??M54.9 Reassuring MRI. ??Return to activity as tolerated. 2.??Venous stasis syndrome??I87.8 Elevation, compression,??physical activity Orders: Discharge Patient, 01/08/23 12:56:00 EDT Follow-up with primary care if the symptoms not rapidly resolved to consider whether he needs neurology assessment, more significant imaging??or laboratory assessment,??or other intervention. Patient Education Acute Back Pain, Adult Follow Up With When Contact Information JARRELL HOUSER DO Within 1 to 2 weeks, only if needed [facility] [address] [place] [phone]- Additional Instructions: Medication Reconciliation Unchanged acetaminophen (acetaminophen [...] by mouth) 2 times a day. ?? ketorolac (ketorolac 10 mg oral tablet)1 tab Oral (given by mouth) every 6 hours as needed as needed for pain. not to exceed 40 mg/day and 5 days duration for all dose forms. Refills: 0. ?? levothyroxine (levothyroxine 25 mcg (0.025 mg) [...] age: Unknown. Cause of : Diagnostic Results MRI Spine Lumbar w/o Contrast 01/08/2023 11:47 EDT MRI Spine Lumbar w/o Contrast ?? 01/08/23 11:45:20 EXAM DESCRIPTION: MRI Spine Lumbar w/o Contrast ?? 01/08/2023 ?? INDICATION: LLE SENSORY AND PROPRIOCEPTION LOSS ?? TECHNIQUE: Multiplanar MRI examination of the lumbar spine utilizing T1, fat-suppressed T2 and fast STIR technique. ?? COMPARISON: None ?? FINDINGS: Lumbar lordosis is satisfactory. No scoliosis. Loss of intervertebral disc signal intensity at L5-S1 on sagittal T2-weighted images consistent with mild desiccation and degeneration. Remaining intervertebral discs demonstrate normal stature and signal intensity throughout the lumbar region ?? L5-S1: Mild broad-based central disc extrusion with small central annular tear. No significant spinal stenosis or thecal sac deformity with AP spinal canal diameter of 14 mm. No neural foraminal narrowing ?? L4-5: No focal disc protrusion, significant spinal stenosis or neural foraminal narrowing. ?? L3-4: No focal disc protrusion, significant spinal stenosis or neural foraminal narrowing. ?? L2-3: No focal disc protrusion, significant spinal stenosis or neural foraminal narrowing. ?? L1-2: No focal disc protrusion, significant spinal stenosis or neural foraminal narrowing. ?? No significant stenosis in the visualized lower thoracic spine ?? The conus is normal in morphology and signal intensity and terminates at the T12-L1 level. No suspicious regional marrow lesions. No vertebral body compression deformity in the lumbar region. ?? Paraspinal soft tissues are unremarkable. ?? IMPRESSION: Mild broad-based central disc extrusion at L5-S1 without significant stenosis ?? Remaining levels demonstrate no focal disc protrusion or significant stenosis ?? Normal conus. ? JOB #: [id number] Cj Allan MD Emergency department Discharge instructions * Cj Allan MD: PERFORM Event Display: ED Discharge Information Authored Date: [id number] PEDRO PABLO SANCHEZ :1995 Age:27 years Sex:Male Visit Date:01/08/2023 Primary Care Physician: JARRELL HOUSER DO Discharge Instructions We would like to thank you for allowing us to assist you with your healthcare needs. The following includes patient education materials and information regarding your injury/illness. Diagnosis from Today's Visit Back pain Venous stasis syndrome Discharge Vitals Temperature??(Oral) 98.1 ??F (36.7 ??C) Heart Rate??(Peripheral) 73 Respiratory Rate?? 17 Blood Pressure?? 124/68?? Height?? 69.69 in (177.000 cm) Weight?? 235.03 lb (106.59 kg) BMI?? 34.000 Allergies amoxicillin??(Vomiting symptom) penicillin codeine What to Do Next Instructions from Your Care Team Pedro Pablo:??Your swelling is likely from venous stasis.?? This means the veins do not get your blood up??to the rest of your body very well from your legs. This is best treated with??regular physical activity, elevation, and compression.?? If you continue to do this that should keep it under control. ?? Your back pain may be??somewhat due to the minor findings on your MRI.?? Return to physical activity as able and being as active as you can and ways that do not aggravate your back pain will help.?? Your primary care might want to refer you to physical therapy if this continues. ?? I do not have a good explanation for the sensory changes in your left leg. ??I would follow-up with your primary care within 2 weeks??and be reexamined. ??If your symptoms persist or you develop areas of weakness??or sensory loss in other parts of your body, a more comprehensive work-up??should be considered through a neurologist or primary care. You Need to Schedule the Following Appointments Follow Up with??JARRELL HOUSER DO When:??Within 1 to 2 weeks, only if needed Where: [facility] [address] [place] [phone]- You were treated today on an emergency [...] by mouth) 2 times a day Unchanged ketorolac (ketorolac 10 mg oral tablet) 1 tab Oral (given by mouth) Every 6 hours as needed for as needed for pain not to exceed 40 mg/ day and 5 days duration for all dose forms ?? Unchanged levothyroxine (levothyroxine 25 mcg (0.025 mg) oral capsule) 1 Capsules Oral (given by mouth) Every day Unchanged magnesium gluconate (Mag-G) Unchanged methadone (methadone 10 mg/ 5 mL oral solution) 60mls Oral (given by mouth) Every morning as needed for as needed for pain Education Materials Acute Back Pain, Adult Acute back pain is sudden and usually short-lived. It is often caused by an injury to the muscles and tissues in the back. The injury may result from: ? A muscle, tendon, or ligament getting overstretched or torn. Ligaments are tissues that connect bones to each other. Lifting something improperly can cause a back strain. ? Wear and tear (degeneration) of the spinal disks. Spinal disks are circular tissue that provide cushioning between the bones of the spine (vertebrae). ? Twisting motions, such as while playing sports or doing yard work. ? A hit to the back. ? Arthritis. You may have a physical exam, lab tests, and imaging tests to find the cause of your pain. Acute back pain usually goes away with rest and home care. Follow these instructions at home: Managing pain, stiffness, and swelling ? Take iozj-muh-mxrclzt and prescription medicines only as told by your health care provider. Treatment may include medicines for pain and inflammation that are taken by mouth or applied to the skin, or muscle relaxants. ? Your health care provider may recommend applying ice during the first 24???48 hours after your painstarts. To do this: ? Put ice in [...] greater risk of damage to the area. ? If directed, apply heat to the [...] to feel pain, heat, or cold. You have a greater risk of getting burned. Activity ? Do not stay in bed. Staying in bed for more than 1???2 days can delay your recovery. ? Sit up and stand up straight. Avoid leaning forward when you sit or hunching over when you stand. ? If you work at a desk, sit close to it so you do not need to lean over. Keep your chin tucked in. Keep your neck drawn back, and keep your elbows bent at a 90-degree angle (right angle). ? Sit high and close to the steering wheel when you drive. Add lower back (lumbar) support to your car seat, if needed. ? Take short walks on even surfaces as soon as you are able. Try to increase the length of time you walk each day. ? Do not sit, drive, or ic designer standard cells one place for more than 30 minutes at a time. Sitting or standing for long periods of time can put stress on your back. ? Do not drive or use heavy machinery while taking prescription pain medicine. ? Use proper lifting techniques. When you bend and lift, use positions that put less stress on your back: ? Bend your knees. ? Keep the load close to your body. ? Avoid twisting. ? Exercise regularly as told by your health care provider. Exercising helps your back heal faster andhelps prevent back injuries by keeping muscles strong and flexible. ? Work with a physical therapist to make a safe exercise program, as recommended by your health care provider. Do any exercises as told by your physical therapist. Lifestyle ? Maintain a healthy weight. Extra weight puts stress on your back and makes it difficult to have good posture. ? Avoid activities or situations that make you feel anxious or stressed. Stress and anxiety increase muscle tension and can make back pain worse. Learn ways to manage anxiety and stress, such as through exercise. General instructions ? Sleep on a firm mattress in a comfortable position. Try lying on your side with your knees slightlybent. If you lie on your back, put a pillow under your knees. ? Keep your head and neck in a straight line with your spine (neutral position) when using electronicequipment like smartphones or pads. To do this: ? Raise your smartphone or pad to look at it instead of bending your head or neck to look down. ? Put the smartphone or pad at the level of your face while looking at the screen. ? Follow your treatment plan as told by your health care provider. This may include: ? Cognitive or behavioral therapy. ? Acupuncture or massage therapy. ? Meditation or yoga. Contact a health care provider if: ? You have pain that is not relieved with rest or medicine. ? You have increasing pain going down into your legs or buttocks. ? Your pain does not improve after 2 weeks. ? You have pain at night. ? You lose weight without trying. ? You have a fever or chills. ? You develop nausea or vomiting. ? You develop abdominal pain. Get help right away if: ? You develop new bowel or bladder control problems. ? You have unusual weakness or numbness in your arms or legs. ? You feel faint. These symptoms may represent a serious problem that is an emergency. Do not wait to see if the symptoms will go away. Get medical help right away. Call your local emergency services (911 in the [place] Do not drive yourself to the hospital. Summary ? Acute back pain is sudden and usually short-lived. ? Use proper lifting techniques. When you bend and lift, use positions that put less stress on your back. ? Take fvck-kxi-nlqpbgh and prescription medicines only as told by your health care provider, and apply heat or ice as told. This information is not intended to replace advice given to you by your health care provider. Make sure you discuss any questions you have with your health care provider. Document Revised: 08/24/2021 Document Reviewed: 08/24/2021 [employer] Patient Education ?? 2022 [employer] Tests Performed Radiology MRI Spine Lumbar w/o Contrast 01/08/2023 11:47 EDT Patient/Certified Nurse Midwife Signature Patient Name:PEDRO PABLO SANCHEZ I have received this information and my questions have been answered. Patient/Certified Nurse Midwife Name: Patient/Certified Nurse Midwife Signature: Relationship to Patient: Witness Name/Signature: Date: Electronically Signed on: 01/08/2023 13:02 EDTSigned by:Cj Gray MD: PERFORM Event Display: ED Discharge Information Authored Date: [id number] PEDRO PABLO SANCHEZ :1995 Age:27 years Sex:Male Visit Date:01/08/2023 Primary Care Physician: JARRELL HOUSER DO Discharge Instructions We would like to thank you for allowing us to assist you with your healthcare needs. The following includes patient education materials and information regarding your injury/illness. Diagnosis from Today's Visit Back pain Venous stasis syndrome Discharge Vitals Temperature??(Oral) 98.1 ??F (36.7 ??C) Heart Rate??(Peripheral) 73 Respiratory Rate?? 17 Blood Pressure?? 124/68?? Height?? 69.69 in (177.000 cm) Weight?? 235.03 lb (106.59 kg) BMI?? 34.000 Allergies amoxicillin??(Vomiting symptom) penicillin codeine What to Do Next Instructions from Your Care Team Pedro Pablo:??Your swelling is likely from venous stasis.?? This means the veins do not get your blood up??to the rest of your body very well from your legs. ??This is best treated with??regular physical activity, elevation, and compression.?? If you continue to do this that should keep it under control. ?? Your back pain may be??somewhat due to the minor findings on your MRI.?? Return to physical activity as able and being as active as you can and ways that do not aggravate your back pain will help.?? Your primary care might want to refer you to physical therapy if this continues. ?? I do not have a good explanation for the sensory changes in your left leg. ??I would follow-up with your primary care within 2 weeks??and be reexamined. ??If your symptoms persist or you develop areas of weakness??or sensory loss in other parts of your body, a more comprehensive work-up??should be considered through a neurologist or primary care. You were treated today on an emergency [...] by mouth) 2 times a day Unchanged ketorolac (ketorolac 10 mg oral tablet) 1 tab Oral (given by mouth) Every 6 hours as needed for as needed for pain not to exceed 40 mg/ day and 5 days duration for all dose forms ?? Unchanged levothyroxine (levothyroxine 25 mcg (0.025 mg) oral capsule) 1 Capsules Oral (given by mouth) Every day Unchanged magnesium gluconate (Mag-G) Unchanged methadone (methadone 10 mg/ 5 mL oral solution) 60mls Oral (given by mouth) Every morning as needed for as needed for pain Education Materials Acute Back Pain, Adult Acute back pain is sudden and usually short-lived. It is often caused by an injury to the muscles and tissues in the back. The injury may result from: ? A muscle, tendon, or ligament getting overstretched or torn. Ligaments are tissues that connect bones to each other. Lifting something improperly can cause a back strain. ? Wear and tear (degeneration) of the spinal disks. Spinal disks are circular tissue that provide cushioning between the bones of the spine (vertebrae). ? Twisting motions, such as while playing sports or doing yard work. ? A hit to the back. ? Arthritis. You may have a physical exam, lab tests, and imaging tests to find the cause of your pain. Acute back pain usually goes away with rest and home care. Follow these instructions at home: Managing pain, stiffness, and swelling ? Take fayk-ljd-awfczrd and prescription medicines only as told by your health care provider. Treatment may include medicines for pain and inflammation that are taken by mouth or applied to the skin, or muscle relaxants. ? Your health care provider may recommend applying ice during the first 24???48 hours after your painstarts. To do this: ? Put ice in [...] greater risk of damage to the area. ? If directed, apply heat to the [...] to feel pain, heat, or cold. You have a greater risk of getting burned. Activity ? Do not stay in bed. Staying in bed for more than 1???2 days can delay your recovery. ? Sit up and stand up straight. Avoid leaning forward when you sit or hunching over when you stand. ? If you work at a desk, sit close to it so you do not need to lean over. Keep your chin tucked in. Keep your neck drawn back, and keep your elbows bent at a 90-degree angle (right angle). ? Sit high and close to the steering wheel when you drive. Add lower back (lumbar) support to your car seat, if needed. ? Take short walks on even surfaces as soon as you are able. Try to increase the length of time you walk each day. ? Do not sit, drive, or ic designer standard cells one place for more than 30 minutes at a time. Sitting or standing for long periods of time can put stress on your back. ? Do not drive or use heavy machinery while taking prescription pain medicine. ? Use proper lifting techniques. When you bend and lift, use positions that put less stress on your back: ? Bend your knees. ? Keep the load close to your body. ? Avoid twisting. ? Exercise regularly as told by your health care provider. Exercising helps your back heal faster andhelps prevent back injuries by keeping muscles strong and flexible. ? Work with a physical therapist to make a safe exercise program, as recommended by your health care provider. Do any exercises as told by your physical therapist. Lifestyle ? Maintain a healthy weight. Extra weight puts stress on your back and makes it difficult to have good posture. ? Avoid activities or situations that make you feel anxious or stressed. Stress and anxiety increase muscle tension and can make back pain worse. Learn ways to manage anxiety and stress, such as through exercise. General instructions ? Sleep on a firm mattress in a comfortable position. Try lying on your side with your knees slightlybent. If you lie on your back, put a pillow under your knees. ? Keep your head and neck in a straight line with your spine (neutral position) when using electronicequipment like smartphones or pads. To do this: ? Raise your smartphone or pad to look at it instead of bending your head or neck to look down. ? Put the smartphone or pad at the level of your face while looking at the screen. ? Follow your treatment plan as told by your health care provider. This may include: ? Cognitive or behavioral therapy. ? Acupuncture or massage therapy. ? Meditation or yoga. Contact a health care provider if: ? You have pain that is not relieved with rest or medicine. ? You have increasing pain going down into your legs or buttocks. ? Your pain does not improve after 2 weeks. ? You have pain at night. ? You lose weight without trying. ? You have a fever or chills. ? You develop nausea or vomiting. ? You develop abdominal pain. Get help right away if: ? You develop new bowel or bladder control problems. ? You have unusual weakness or numbness in your arms or legs. ? You feel faint. These symptoms may represent a serious problem that is an emergency. Do not wait to see if the symptoms will go away. Get medical help right away. Call your local emergency services (911 in the [place] Do not drive yourself to the hospital. Summary ? Acute back pain is sudden and usually short-lived. ? Use proper lifting techniques. When you bend and lift, use positions that put less stress on your back. ? Take ylvi-jmk-wvvyloz and prescription medicines only as told by your health care provider, and apply heat or ice as told. This information is not intended to replace advice given to you by your health care provider. Make sure you discuss any questions you have with your health care provider. Document Revised: 08/24/2021 Document Reviewed: 08/24/2021 [employer] Patient Education ?? 2022 [employer] Tests Performed Radiology MRI Spine Lumbar w/o Contrast 01/08/2023 11:47 EDT Patient/Certified Nurse Midwife Signature Patient Name:PEDRO PABLO SANCHEZ I have received this information and my questions have been answered. Patient/Certified Nurse Midwife Name: Patient/Certified Nurse Midwife Signature: Relationship to Patient: Witness Name/Signature: Date: Electronically Signed on: 01/08/2023 12:56 EDTSigned by:JANES Patient Care team information Care Team Personnel Name: JARRELL HOUSER DO Position: No Access Member Role: Primary Care Physician Address: Address: [address] [id number] Name: Cj Allan MD Position: Physician Member Role: Admitting Physician Address: Address: [address] [place] [id number] Name: Dian Troncoso Position: Nurse Member Role: ED Nurse Care Team Related Persons Name: ARY SANCHEZ Address: Home Name: MILLER SANCHEZ Address: Home
--- OUTSIDE RECORDS SUMMARY | 2023-05-14 12:34 | XMS_ITS | Continuity of Care Document ---
Author Name Unknown Organization [facility] Address [address] [place] [id number] Care Team Providers Care Egg Processor Name Role Phone JARRELL HOUSER DO Primary Care Physician Encounter [facility] FIN NBR [id number] Date(s): 02/17/23 - 02/17/[address] [id number] [place] Encounter Diagnosis Cholelithiasis(Discharge Diagnosis) - 02/17/23 Biliary colic(Discharge Diagnosis) - 02/17/23 Discharge Disposition: Home or Self Care Attending Physician: Bryan Sheldon DO Admitting Physician: Bryan Sheldon DO Allergies, Adverse Reactions, Alerts Substance Reaction Severity Status codeine Unknown Active amoxicillin Vomiting symptom Moderate Active penicillin Moderate Active Assessment and Plan Future Appointments Functional Status 02/17/23 Other exposure to Infectious Disease Non e [...] disorder Confirmed Active Torticollis Confirmed Active 1elevated Vital Signs Most recent to oldest [Reference Range]: 1 Temperature Temporal Artery [36-38 Deg C ] 36.5 Deg C (02/17/23 1:09 PM) Peripheral Pulse Rate [60-100 bpm] 88 bp m (02/17/23 1:09 PM) Respiratory Rate [12-24 br/min] 16 br/mi n (02/17/23 1:09 PM) Blood Pressure [90-140/60-90 mmHg] 116/8 0mmHg (02/17/23 1:09 PM) Weight Dosing 104.33 kg (02/17/23 1:21 PM) Weight Estimated 104.33 kg (02/17/23 1:09 PM) Height/Length Dosing 177.000 cm (02/17/23 1:21 PM) Height/Length Estimated 177.000 cm (02/17/23 1:09 PM) Social History Social History Type Response Tobacco Never tobacco user T obacco Use:. Sex Hospital Discharge Instructions Patient Education 02/17/2023 12:59:11 Biliary Colic, Adult Biliary Colic, Adult Biliary [...] for a while. General instructions ??? Take lpxs-pjf-htwlhwv and prescription medicines only as told by [...] provider. Document Revised: 06/13/2020 Document Reviewed: 04/04/2020 [employer] Patient Education ?? 2022 [employer]. 02/17/2023 12:59:09 Cholelithiasis Cholelithiasis Cholelithiasis is a disease in [...] these instructions at home: Medicines ??? Take kyey-ipn-oyirbft and prescription medicines only as told by [...] Where to find more information ??? National [place] of Diabetes and Digestive and Kidney Diseases: [...] provider. Document Revised: 04/24/2020 Document Reviewed: 04/24/2020 [employer] Patient Education ?? 2022 [employer]. Follow Up Care 02/17/2023 13:09:08 With:Return to the Emergency Department Address: When:1 month only if needed Comments:As we discussed, feel this is due to the fatty meal you had last night with your cholelithiasis (gall stones). Please keep your appt with Dr. Urbina as this is the best plan of action for your issue, but do return to ER if you develop fever, persisting right upper quadrant pain, or yellowing of the skin. Emergency department Discharge instructions * Oksana Chen: PERFORM Event Display: ED Discharge Information Authored Date: [id number] DESIRE SANCHEZ :1995 Age:27 years Sex:Male Visit Date:02/17/2023 Primary Care Physician: JARRELL HOUSER DO Discharge Instructions We would like to thank you for allowing us to assist you with your healthcare needs. The following includes patient education materials and information regarding your injury/illness. Diagnosis from Today's Visit Cholelithiasis Biliary colic Discharge Vitals Temperature??(Temporal Artery) 97.7 ??F (36.5 ??C) Heart Rate??(Peripheral) 88 Respiratory Rate?? 16 Blood Pressure?? 116/80?? Height?? 69.69 in (177.000 cm) Weight??(Estimated) 230.05 lb (104.33 kg) Allergies amoxicillin??(Vomiting symptom) penicillin codeine What to Do Next You Need to Schedule the Following Appointments Follow Up with??Return to the Emergency Department When:??Within 1 month, only if needed Why: As we discussed, feel this is due to the fatty meal you had last night with your cholelithiasis (gall stones). Please keep your appt with Dr. Urbina as this is the best plan of action for your issue, but do return to ER if you develop fever, persisting right upper quadrant pain, or yellowing of the skin. Upcoming Scheduled Appointments Friday 10:30 AM EDT ?? With: Marlo Urbina MD Where: [facility] General Surgery Status: Confirmed You were treated today on [...] for a while. General instructions ? Take thpq-ebw-xwvgawk and prescription medicines only as told by [...] provider. Document Revised: 06/13/2020 Document Reviewed: 04/04/2020 [employer] Patient Education ?? 2022 [employer] Cholelithiasis Cholelithiasis is a disease in which [...] these instructions at home: Medicines ? Take rojj-bvt-anhoayk and prescription medicines only as told by [...] Where to find more information ? National [place] of Diabetes and Digestive and Kidney Diseases: [...] Reviewed: 04/24/2020 [employer] Patient Education ?? 2022 [employer] Patient/Global Creative Chairman Signature Patient Name:DESIRE SANCHEZ I have received this information and my questions have been answered. Patient/Global Creative Chairman Name: Patient/Global Creative Chairman Signature: Relationship to Patient: Witness Name/Signature: Date: Electronically Signed on: 02/17/2023 14:03 EDTSigned by:GRIS Patient Care team information Care Team Personnel Name: JARRELL HOUSER DO Position: No Access Member Role: Primary Care Physician Address: Address: [address] [address]- [place] Name: Bryan Sheldon DO Position: Physician Member Role: Admitting Physician Address: Address: [address] [place] [phone] Name: Yee Bullard RN Position: Nurse Member Role: ED Nurse Care Team Related Persons Name: ARY SANCHEZ Address: Home Name: MILLER SANCHEZ Address: Home
--- OUTSIDE RECORDS SUMMARY | 2023-05-14 12:35 | XMS_ITS | Continuity of Care Document ---
Author Name Unknown Organization 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 [employer] Name Role Phone JARRELL HOUSER DO Primary Care Physician Encounter [facility]BR [id number] Date(s): 07/31/22 - 07/31/[address] [address] [place] Encounter Diagnosis Nonspecific chest pain(Discharge Diagnosis) - 07/31/22 Discharge Disposition: Home or Self Care Attending Physician: Cj Allan MD Admitting Physician: Cj Allan MD Allergies, Adverse Reactions, Alerts Substance Reaction Severity Status codeine Unknown Active amoxicillin Vomiting symptom Moderate Active Functional Status 07/31/22 Other exposure to Infectious Disease Non e Medications calcitriol 0.25 mcg oral capsule 0.5, Oral, BID, TAKE ONE CAPSULE BY MOUTH EVERY DAY Start Date: 06/22/22 Status: Ordered doxycycline hyclate 100 mg oral capsule 100 mg = 1 cap, Oral, BID, # 20 cap, 0 Refill(s), Pharmacy: [id number], 178, cm, 06/22/22 16:30:00 EST, Height/Length [...] 0 Refill(s) Start Date: 03/31/22 Status: Ordered Results Laboratory List Name Date Automated Diff 07/31/22 CBC w/ Diff 07/31/22 Comprehensive Metabolic Panel 07/31/22 Troponin-I 07/31/22 Most recent to oldest [Reference Range]: 1 WBC [4.8-10.8 K/mcL] 9.6 K/mcL (07/31/22 3:02 PM) RBC [4.20-6.10 Million/mcL] 3.55 Million /mcL *LOW* (07/31/22 3:02 PM) Neutro Auto [42.2-75.2 %] 75.9 % *HI* (07/31/22 3:02 PM) Lymph Auto [20.5-51.1 %] 15.3 % *LOW* (07/31/22 3:02 PM) [place] Auto [1.7-9.3 %] 7.4 % (07/31/22 3:02 PM) Basophil Auto [0.0-0.8 %] 0.4 % (07/31/22 3:02 PM) BUN [8-26 mg/dL] 20 mg/dL (07/31/22 3:02 PM) Glucose Level [74-106 mg/dL] 101 mg/dL (07/31/22 3:02 PM) Potassium Level [3.5-5.1 mmol/L] 3.7 mmo l/L (07/31/22 3:02 PM) Baso Absolute [0.0-0.2 K/mcL] 0.0 K/mcL (07/31/22 3:02 PM) MCV [80.0-99.0 fL] 91.5 fL (07/31/22 3:02 PM) AST [15-41 IntlUnit/L] 41 IntlUnit/L (07/31/22 3:02 PM) ALT [17-63 IntlUnit/L] 52 IntlUnit/L (07/31/22 3:02 PM) MCHC [32.0-36.0 g/dL] 34.5 g/dL (07/31/22 3:02 PM) Osmolality [275-295 mOsm/kg] 273 mOsm/kg *LOW* (07/31/22 3:02 PM) Troponin-I [<=0.05 ng/mL] 0.01 ng/mL (07/31/22 3:02 PM) Sodium Level [134-143 mmol/L] 135 mmol/L (07/31/22 3:02 PM) Lymph Absolute [1.2-3.4 K/mcL] 1.5 K/mcL (07/31/22 3:02 PM) Hct [37.0-52.0 %] 32.5 % *LOW* (07/31/22 3:02 PM) Calcium Level [8.9-10.3 mg/dL] 9.3 mg/dL (07/31/22 3:02 PM) [place] Absolute [0.1-0.6 K/mcL] 0.7 K/mcL *HI* (07/31/22 3:02 PM) Albumin Level [3.5-5.0 g/dL] 3.5 g/dL (07/31/22 3:02 PM) Protein Total [6.5-8.1 g/dL] 7.0 g/dL (07/31/22 3:02 PM) MCH [27.0-31.0 pg] 31.5 pg *HI* (07/31/22 3:02 PM) Neutro Absolute [1.4-6.5 K/mcL] 7.3 K/mc L *HI* (07/31/22 3:02 PM) Bilirubin Total [0.2-1.2 mg/dL] 0.5 mg/d L (07/31/22 3:02 PM) Hgb [12.0-18.0 g/dL] 11.2 g/dL *LOW* (07/31/22 3:02 PM) Alk Phos [38-130 IntlUnit/L] 67 IntlUnit /L (07/31/22 3:02 PM) MPV [7.4-10.4 fL] 10.4 fL (07/31/22 3:02 PM) Platelets [130-400 K/mcL] 300 K/mcL (07/31/22 3:02 PM) CO2 [22-32 mmol/L] 31 mmol/L (07/31/22 3:02 PM) Eos Absolute [0.0-0.2 K/mcL] 0.1 K/mcL (07/31/22 3:02 PM) Chloride Level [98-111 mmol/L] 98 mmol/L (07/31/22 3:02 PM) RDW-CV [11.5-14.5 %] 11.7 % (07/31/22 3:02 PM) A/G Ratio 1.0 *NA* (07/31/22 3:02 PM) BUN/Creat Ratio [8.0-20.0] 10.3 (07/31/22 3:02 PM) Globulin 3.5 *NA* (07/31/22 3:02 PM) Imm Gran Absolute 0.03 *NA* (07/31/22 3:02 PM) Imm Gran Auto [0.0-0.5 %] 0.3 % (07/31/22 3:02 PM) Creatinine Level [0.61-1.24 mg/dL] 1.95 mg/dL *HI* (07/31/22 3:02 PM) Anion Gap [3.0-12.0] 6.0 (07/31/22 3:02 PM) Eos, Auto [0.00-3.00 %] 0.70 % (07/31/22 3:02 PM) eGFR CKD-EPI [>=60 mL/min/1.73 m2] 47 mL /min/1.73 m2 *LOW* (07/31/22 3:02 PM) Radiology Reports * Exam Date Time Procedure Performing Provider Status 07/31/22 3:58 PM XR Chest 2 Views Sydnee Hernandez; Au th (Verified) Notes: (XR Chest 2 Views) Reason For Exam: chest pain XR Chest 2 Views EXAM DESCRIPTION: XR Chest 2 Views 07/31/2022 INDICATION: CHEST PAIN TECHNIQUE: PA and lateral views of the chest. COMPARISON: 07/12/2022 FINDINGS: The lungs are well expanded and clear with no focal consolidation or pulmonary edema. The cardiomediastinal contour and pleural margins are within normal limits. IMPRESSION: Normal PA and lateral views of the chest. JOB #: [id number] Final Signed by: John Burciaga MD Signed (Electronic Signature): 07/31/2022 4:28 pm Vital Signs Most recent to oldest [Reference Range]: 1 2 3 Temperature Temporal Artery [36-38 Deg C] 36.7 Deg C (07/31/22 2:53 PM) Peripheral Pulse Rate [60-100 bpm] 75 bpm (07/31/22 4:30 PM) 87 bpm (07/31/22 4:15 PM) 69 bpm (07/31/22 4:00 PM) Heart Rate Monitored [60-100 bpm] 72 bpm (07/31/22 4:30 PM) 85 bpm (07/31/22 4:15 PM) 68 bpm (07/31/22 4:00 PM) Respiratory Rate [12-24 br/min] 16 br/min (07/31/22 4:30 PM) 26 br/min *HI* (07/31/22 4:15 PM) 13 br/min (07/31/22 4:00 PM) Blood Pressure [90-140/60-90 mmHg] 129/85mmHg (07/31/22 4:30 PM) 129/85mmHg (07/31/22 4:15 PM) 121/76mmHg (07/31/22 4:00 PM) Mean Arterial Pressure Cuff 97 mmHg (07/31/22 4:30 PM) 97 mmHg (07/31/22 4:15 PM) 88 mmHg (07/31/22 4:00 PM) Weight Dosing 97.00 kg (07/31/22 3:02 PM) Weight Estimated 97.00 kg (07/31/22 2:53 PM) Height/Length Dosing 177.000 cm (07/31/22 3:02 PM) Height/Length Estimated 177.000 cm (07/31/22 2:53 PM) Social History Social History Type Response Tobacco Never tobacco user T obacco Use:. Sex Hospital Discharge Instructions Patient Education 07/31/2022 15:16:10 Nonspecific Chest Pain, Adult Nonspecific Chest Pain, Adult Chest pain is an uncomfortable, tight, or painful feeling in the chest. The pain can feel like a crushing, aching, or squeezing pressure. A person can feel a burning or tingling sensation. Chest paincan also be felt in your back, neck, jaw, shoulder, or arm. This pain can be worse when you move, sneeze, or take a deep breath. Chest pain can be caused by a condition that is life-threatening. This must be treated right away. It can also be caused by something that is not life- threatening. If you have chest pain, it can be hard to know the difference, so it is important to get help right away to make sure that you do not have a serious condition. Some life-threatening causes of chest pain include: ??? Heart attack. ??? A tear in the body's main blood vessel (aortic dissection). ??? Inflammation around your heart (pericarditis). ??? A problem in the lungs, such as a blood clot (pulmonary embolism) or a collapsed lung (pneumothorax). Some non life-threatening causes of chest pain include: ??? Heartburn. ??? Anxiety or stress. ??? Damage to the bones, muscles, and cartilage that make up your chest wall. ??? Pneumonia or bronchitis. ??? Shingles infection (varicella-zoster virus). Your chest pain may come and go. It may also be constant. Your health care provider will do tests and other studies to find the cause of your pain. Treatment will depend on the cause of your chest pain. Follow these instructions at home: Medicines ??? Take [id number]-pgkidlr and prescription medicines only as told by your health care provider. ??? If you were prescribed an antibiotic medicine, take it as told by your health care provider. Donot stop taking the antibiotic even if you start to feel better. Activity ??? Avoid any activities that cause chest pain. ??? Do not lift anything that is heavier than 10 lb (4.5 kg), or the limit that you are told, untilyour health care provider says that it is safe. ??? Rest as directed by your health care provider. ??? Return to your normal activities only as told by your health care provider. Ask your health care provider what activities are safe for you. Lifestyle ??? Do not use any products that contain nicotine or tobacco, such as cigarettes, e-cigarettes, andchewing tobacco. If you need help quitting, ask your health care provider. ??? Do not drink alcohol. ??? Make healthy lifestyle changes as recommended. These may include: ??? Getting regular exercise. Ask your health care provider to suggest some exercises that are safefor you. ??? Eating a heart-healthy diet. This includes plenty of fresh fruits and vegetables, whole grains,low-fat (lean) protein, and low-fat dairy products. A dietitian can help you find healthy eating options. ??? Maintaining a healthy weight. ??? Managing any other health conditions you may have, such as high blood pressure (hypertension) or diabetes. ??? Reducing stress, such as with yoga or relaxation techniques. General instructions ??? Pay attention to any changes in your symptoms. ??? It is up to you to get the results of any tests that were done. Ask your health care provider, or the department that is doing the tests, when your results will be ready. ??? Keep all follow-up visits as told by your health care provider. This is important. ??? You may be asked to go for further testing if your chest pain does not go away. Contact a health care provider if: ??? Your chest pain does not go away. ??? You feel depressed. ??? You have a fever. ??? You notice changes in your symptoms or develop new symptoms. Get help right away if: ??? Your chest pain gets worse. ??? You have a cough that gets worse, or you cough up blood. ??? You have severe pain in your abdomen. ??? You faint. ??? You have sudden, unexplained chest discomfort. ??? You have sudden, unexplained discomfort in your arms, back, neck, or jaw. ??? You have shortness of breath at any time. ??? You suddenly start to sweat, or your skin gets clammy. ??? You feel nausea or you vomit. ??? You suddenly feel lightheaded or dizzy. ??? You have severe weakness, or unexplained weakness or fatigue. ??? Your heart begins to beat quickly, or it feels like it is skipping beats. These symptoms may represent a serious problem that is an emergency. Do not wait to see if the symptoms will go away. Get medical help right away. Call your local emergency services (911 in the [place] Do not drive yourself to the hospital. Summary ??? Chest pain can be caused by a condition that is serious and requires urgent treatment. It may also be caused by something that is not life-threatening. ??? Your health care provider may do lab tests and other studies to find the cause of your pain. ??? Follow your health care provider's instructions on taking medicines, making lifestyle changes, and getting emergency treatment if symptoms become worse. ??? Keep all follow-up visits as told by your health care provider. This includes visits for any further testing if your chest pain does not go away. This information is not intended to replace advice given to you by your health care provider. Make sure you discuss any questions you have with your health care provider. Document Revised: 08/16/2021 Document Reviewed: 08/16/2021 Elsevier Patient Education ?? 2021 [employer]. Follow Up Care 07/31/2022 14:53:28 With:Follow up with primary care provider Address: When: only if needed Physician Emergency department Note * Cj Allan MD: PERFORM Event Display: ED Note Physician Authored Date: [id number] PEDRO PABLO SANCHEZ :1995 Age:26 years Sex:Male Visit Date:07/31/2022 Primary Care Physician: JARRELL HOUSER DO Basic Information Time Seen: Cj Allan MD / 07/31/2022 15:01 Chief Complaint pt reports chest pain starting 40 minutes ago. headache History Of Present Illness: Pedro Pablo is a 26-year-old male with chronic pain, history of polysubstance use,??and multiple endocrine neoplasia followed by??[facility] internal medicine and??endocrinology at .?? He presents with??a??sharp jabbing??central retrosternal chest discomfort??that is not associated with breathing, exertion, movement, or other activities; that started after a dental procedure where he only received localanesthesia.?? There may be some slight neck and shoulder discomfort associated with it but he is not sure.?? He has no presyncope or syncope.?? He has no palpitations.?? He has no history of cardiac disease.?? His thyroid has been controlled. Review of Systems: Constitutional:??No fevers, demented, but he has felt slightly flushed Eye:??No recent visual problems ENT:??No ear pain, nasal congestion, sore throat Respiratory:??No shortness of breath, cough Cardiovascular:??No?? palpitations, syncope Genitourinary:??No hematuria, or other concerning urinary symptoms Joaquín/Lymph:??Negative for bruising tendency, swollen lymph glands Musculoskeletal:??No back pain, neck pain, joint pain, muscle pain, decreased range of motion Integumentary:??No rash, pruritus, abrasions Neurologic:??Alert & oriented X 4 Physical Exam Vitals & Measurements T:??36.7?C ??(Temporal Artery)?? HR:??75??(Peripheral)?? HR:??72??(Monitored)?? RR:??16?? BP:??129/85?? SpO2:??95%?? HT:??177.000??cm?? WT:??97.00??kg??(Estimated)?? Pain Score:??7?? O2 Therapy:??Room air?? Alert overweight male who appears in no distress with unremarkable vital signs.?? Oxygen saturations 98 to 100% on room air. Head neck exam reveals normal oropharynx supple neck without adenopathy or JVD. ??Chest is clear without wheezes or crackles. ??Heart sounds are normal without murmur or extra sound. ??Peripheral pulses are full. ??Abdomen is soft nontender. ??Extremities reveal trace edema to his lower extremitiesthat his sock lines??without erythema. Medical Decision Making: This patient is at low risk of cardiac??issues.?? He has not used substances in over 5 years.?? He has used no stimulants??and does not use stimulant drinks. ??His??chest discomfort is??low risk for cardiac.?? There is no issue??or symptoms to suggest thromboembolic disease.?? He is??PERC negative,Wells negative??for need for further work-up. ?? He received 1 L of normal saline in the emergency department.?? 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 Procedure No Qualifying Data Assessment/Plan 1.??Nonspecific chest pain??R07.9 Less likely prerenal??slight worsening of his??creatinine. ??Patient symptoms were mild and he did not wish any??intervention. ??He wished to go home. ??Lab work-up was unremarkable other than a??elevated creatinine of 1.95 which was mildly concerning. ??He has been as high as 1.4 here recently??inthe past.?? He is weaning off his gabapentin and this was recommended to continue as it is not helping him. ?? He understands the importance of follow-up for recheck of his??creatinine and/within 1 to??2 weeks. ??He will follow-up for increased edema, worsening chest pressure, shortness of breath or other concerning symptoms.?? He will avoid nonsteroidal anti-inflammatories??and hydrate well. Orders: Sodium Chloride 0.9% 1,000 mL, Total Volume (mL): 1,000, 1,000 mL, Soln-IV, IV, 150 mL/hr, Order Duration: 30 days, Start Date: 07/31/22 16:18:00 EST, Stop Date: 08/30/22 16:17:00 EDT, 97 kg, Populate Charting Weight From Order, 2.18, m2 Discharge Patient, 07/31/22 16:49:00 EST Patient Discharge Condition Improve rating his pain is minor Discharge Disposition Stable Patient Education Nonspecific Chest Pain, Adult With some likely prerenal??mild azotemia requiring follow-up Follow Up With When Contact Information Follow up with primary care provider Only if needed Additional Instructions: Medication Reconciliation Unchanged calcitriol (calcitriol 0.25 mcg [...] a dayfor 10 Days. Refills: 0. ?? [id number] Oral (given by mouth) 3 times a day. ?? levothyroxine (levothyroxine 25 mcg (0.025 mg) oral capsule)1 Capsules Oral (given by mouth) every day. ?? methadone (methadone 5 mg oral tablet)110 Milligrams Oral (given by mouth) every day as needed as needed for pain. Problem List/Past Medical History Ongoing No qualifying data Historical No qualifying data Medication Administration Given Sodium Chloride 0.9%, 1000 mL, IV Allergies amoxicillin??(Vomiting symptom) codeine Social History Alcohol Past Electronic Cigarette/Vaping Electronic Cigarette Use: Never. Substance Use Past Tobacco Never tobacco user Tobacco Use:. Diagnostic Results XR Chest 2 Views 07/31/2022 16:30 EST XR Chest 2 Views ?? 07/31/22 16:28:33 EXAM DESCRIPTION: XR Chest 2 Views ?? 07/31/2022 ?? INDICATION: CHEST PAIN ?? TECHNIQUE: PA and lateral views of the chest. ?? COMPARISON: 07/12/2022 ?? FINDINGS: The lungs are well expanded and clear with no focal consolidation or pulmonary edema. The cardiomediastinal contour and pleural margins are within normal limits. ?? IMPRESSION: Normal PA and lateral views of the chest. ? JOB #: [id number] Electronically Signed By: ?? Signed By: John Burciaga MD Lab Results CBC and Differential?? LATEST RESULTS?? HISTORICAL RESULTS?? WBC?? 07/31/22 15:02?? 9.6?? 07/12/22?? 6.9?? RBC?? 07/31/22 15:02?? 3.55 ??Low?? 07/12/22?? 3.59 ??Low?? Hgb?? 07/31/22 15:02?? 11.2 ??Low?? 07/12/22?? 11.4 ??Low?? Hct?? 07/31/22 15:02?? 32.5 ??Low?? 07/12/22?? 33.2 ??Low?? MCV?? 07/31/22 15:02?? 91.5?? 07/12/22?? 92.5?? MCH?? 07/31/22 15:02?? 31.5 ??High?? 07/12/22?? 31.8 ??High?? MCHC?? 07/31/22 15:02?? 34.5?? 01/27/23?? 34.3?? RDW-CV?? 07/31/22 15:02?? 11.7?? 07/12/22?? 12.0?? Platelets?? 07/31/22 15:02?? 300?? 07/12/22?? 259?? MPV?? 07/31/22 15:02?? 10.4?? 07/12/22?? 10.4?? Neutro Auto?? 07/31/22 15:02?? 75.9 ??High?? 07/12/22?? 46.4?? Lymph Auto?? 07/31/22 15:02?? 15.3 ??Low?? 07/12/22?? 35.0?? [place] Auto?? 07/31/22 15:02?? 7.4?? 07/12/22?? 12.4 ??High?? Eos, Auto?? 07/31/22 15:02?? 0.70?? 07/12/22?? 5.10 ??High?? Basophil Auto?? 07/31/22 15:02?? 0.4?? 07/12/22?? 0.7?? Imm Gran Auto?? 07/31/22 15:02?? 0.3?? 07/12/22?? 0.4?? Neutro Absolute?? 07/31/22 15:02?? 7.3 ??High?? 07/12/22?? 3.2?? Lymph Absolute?? 07/31/22 15:02?? 1.5?? 07/12/22?? 2.4?? [place] Absolute?? 07/31/22 15:02?? 0.7 ??High?? 07/12/22?? 0.8 ??High?? Eos Absolute?? 07/31/22 15:02?? 0.1?? 07/12/22?? 0.4 ??High?? Baso Absolute?? 07/31/22 15:02?? 0.0?? 07/12/22?? 0.0?? Imm Gran Absolute?? 07/31/22 15:02?? 0.03?? 07/12/22?? 0.03? Routine Chemistry?? LATEST RESULTS?? HISTORICAL RESULTS?? Sodium Level?? 07/31/22 15:02?? 135?? 07/12/22?? 136?? Potassium Level?? 07/31/22 15:02?? 3.7?? 07/12/22?? 4.0?? Chloride Level?? 07/31/22 15:02?? 98?? 07/12/22?? 98?? CO2?? 07/31/22 15:02?? 31?? 07/12/22?? 29?? Alk Phos?? 07/31/22 15:02?? 67?? 07/12/22?? 69?? AST?? 07/31/22 15:02?? 41?? 07/12/22?? 28?? ALT?? 07/31/22 15:02?? 52?? 07/12/22?? 22?? BUN?? 07/31/22 15:02?? 20?? 07/12/22?? 11?? Glucose Level?? 07/31/22 15:02?? 101?? 07/12/22?? 103?? Creatinine Level?? 07/31/22 15:02?? 1.95 ??High?? 07/12/22?? 1.11?? BUN/Creat Ratio?? 07/31/22 15:02?? 10.3?? 07/12/22?? 9.9?? Calcium Level?? 07/31/22 15:02?? 9.3?? 07/12/22?? 8.1 ??Low?? Protein Total?? 07/31/22 15:02?? 7.0?? 07/12/22?? 7.3?? Albumin Level?? 07/31/22 15:02?? 3.5?? 07/12/22?? 3.7?? Globulin?? 07/31/22 15:02?? 3.5?? 07/12/22?? 3.6?? A/G Ratio?? 07/31/22 15:02?? 1.0?? 07/12/22?? 1.0?? Bilirubin Total?? 07/31/22 15:02?? 0.5?? 07/12/22?? 0.2?? Anion Gap?? 07/31/22 15:02?? 6.0?? 07/12/22?? 9.0?? Osmolality?? 07/31/22 15:02?? 273 ??Low?? 07/12/22?? 272 ??Low?? eGFR CKD-EPI?? 07/31/22 15:02?? 47 ??Low?? 07/12/22?? 93? Cardiac Isoenzymes?? LATEST RESULTS?? HISTORICAL RESULTS?? Troponin-I?? 07/31/22 15:02?? 0.01?? 07/12/22?? <0.01? Electronically Signed on 07/31/22 05:00 PM Cj Allan MD Emergency department Discharge instructions * Cj Allan MD: PERFORM Event Display: ED Discharge Information Authored Date: [id number] PEDRO PABLO SANCHEZ :1995 Age:26 years Sex:Male Visit Date:07/31/2022 Primary Care Physician: JARRELL HOUSER DO Discharge Instructions We would like to thank you for allowing us to assist you with your healthcare needs. The following includes patient education materials and information regarding your injury/illness. Diagnosis from Today's Visit Nonspecific chest pain Discharge Vitals Temperature??(Temporal Artery) 98.1 ??F (36.7 ??C) Heart Rate??(Peripheral) 75 Heart Rate??(Monitored) 72 Respiratory Rate?? 16 Blood Pressure?? 129/85?? Height?? 69.69 in (177.000 cm) Weight??(Estimated) 213.89 lb (97.00 kg) Allergies amoxicillin??(Vomiting symptom) codeine What to Do Next Instructions from Your Care Team There were no signs of concern on your evaluation other than your kidney function being a little worse.?? This should be rechecked within 1-2 weeks.?? You should hydrate well by drinking at least 4-6cups of fluid such as water per day and seeing your medical team if this is not improving.?? You Need to Schedule the Following Appointments Follow Up with??Follow up with primary care provider When:??Only if needed You were treated today on an emergency [...] for as needed for pain Education Materials Nonspecific Chest Pain, Adult Chest pain is an uncomfortable, tight, or painful feeling in the chest. The pain can feel like a crushing, aching, or squeezing pressure. A person can feel a burning or tingling sensation. Chest paincan also be felt in your back, neck, jaw, shoulder, or arm. This pain can be worse when you move, sneeze, or take a deep breath. Chest pain can be caused by a condition that is life-threatening. This must be treated right away. It can also be caused by something that is not life- threatening. If you have chest pain, it can be hard to know the difference, so it is important to get help right away to make sure that you do not have a serious condition. Some life-threatening causes of chest pain include: ? Heart attack. ? A tear in the body's main blood vessel (aortic dissection). ? Inflammation around your heart (pericarditis). ? A problem in the lungs, such as a blood clot (pulmonary embolism) or a collapsed lung (pneumothorax). Some non life-threatening causes of chest pain include: ? Heartburn. ? Anxiety or stress. ? Damage to the bones, muscles, and cartilage that make up your chest wall. ? Pneumonia or bronchitis. ? Shingles infection (varicella-zoster virus). Your chest pain may come and go. It may also be constant. Your health care provider will do tests and other studies to find the cause of your pain. Treatment will depend on the cause of your chest pain. Follow these instructions at home: Medicines ? Take giet-eki-qtyvwoa and prescription medicines only as told by your health care provider. ? If you were prescribed an antibiotic medicine, take it as told by your health care provider. Do notstop taking the antibiotic even if you start to feel better. Activity ? Avoid any activities that cause chest pain. ? Do not lift anything that is heavier than 10 lb (4.5 kg), or the limit that you are told, until your health care provider says that it is safe. ? Rest as directed by your health care provider. ? Return to your normal activities only as told by your health care provider. Ask your health care provider what activities are safe for you. Lifestyle ? Do not use any products that contain nicotine or tobacco, such as cigarettes, e- cigarettes, and chewing tobacco. If you need help quitting, ask your health care provider. ? Do not drink alcohol. ? Make healthy lifestyle changes as recommended. These may include: ? Getting regular exercise. Ask your health care provider to suggest some exercises that are safe foryou. ? Eating a heart-healthy diet. This includes plenty of fresh fruits and vegetables, whole grains, low-fat (lean) protein, and low-fat dairy products. A dietitian can help you find healthy eating options. ? Maintaining a healthy weight. ? Managing any other health conditions you may have, such as high blood pressure (hypertension) or diabetes. ? Reducing stress, such as with yoga or relaxation techniques. General instructions ? Pay attention to any changes in your symptoms. ? It is up to you to get the results of any tests that were done. Ask your health care provider, or the department that is doing the tests, when your results will be ready. ? Keep all follow-up visits as told by your health care provider. This is important. ? You may be asked to go for further testing if your chest pain does not go away. Contact a health care provider if: ? Your chest pain does not go away. ? You feel depressed. ? You have a fever. ? You notice changes in your symptoms or develop new symptoms. Get help right away if: ? Your chest pain gets worse. ? You have a cough that gets worse, or you cough up blood. ? You have severe pain in your abdomen. ? You faint. ? You have sudden, unexplained chest discomfort. ? You have sudden, unexplained discomfort in your arms, back, neck, or jaw. ? You have shortness of breath at any time. ? You suddenly start to sweat, or your skin gets clammy. ? You feel nausea or you vomit. ? You suddenly feel lightheaded or dizzy. ? You have severe weakness, or unexplained weakness or fatigue. ? Your heart begins to beat quickly, or it feels like it is skipping beats. These symptoms may represent a serious problem that is an emergency. Do not wait to see if the symptoms will go away. Get medical help right away. Call your local emergency services (911 in the [place] Do not drive yourself to the hospital. Summary ? Chest pain can be caused by a condition that is serious and requires urgent treatment. It may also be caused by something that is not life-threatening. ? Your health care provider may do lab tests and other studies to find the cause of your pain. ? Follow your health care provider's instructions on taking medicines, making lifestyle changes, and getting emergency treatment if symptoms become worse. ? Keep all follow-up visits as told by your health care provider. This includes visits for any further testing if your chest pain does not go away. This information is not intended to replace advice given to you by your health care provider. Make sure you discuss any questions you have with your health care provider. Document Revised: 08/16/2021 Document Reviewed: 08/16/2021 Elsevier Patient Education ?? 2021 [employer] Tests Performed Radiology XR Chest 2 Views 07/31/2022 16:30 EST Medications and Immunizations Administered Given Sodium Chloride 0.9%, 1000 mL, IV Lab Test Name Test Result Date/Time WBC 9.6 K/mcL 07/31/2022 15:02 EST RBC 3.55 Million/mcL 07/31/2022 15:02 EST Hgb 11.2 g/dL 07/31/2022 15:02 EST Hct 32.5 % 07/31/2022 15:02 EST MCV 91.5 fL 07/31/2022 15:02 EST MCH 31.5 pg 07/31/2022 15:02 EST MCHC 34.5 g/dL 07/31/2022 15:02 EST RDW-CV 11.7 % 07/31/2022 15:02 EST Platelets 300 K/mcL 07/31/2022 15:02 EST MPV 10.4 fL 07/31/2022 15:02 EST Neutro Auto 75.9 % 07/31/2022 15:02 EST Lymph Auto 15.3 % 07/31/2022 15:02 EST [place] Auto 7.4 % 07/31/2022 15:02 EST Eos, Auto 0.70 % 07/31/2022 15:02 EST Basophil Auto 0.4 % 07/31/2022 15:02 EST Imm Gran Auto 0.3 % 07/31/2022 15:02 EST Neutro Absolute 7.3 K/mcL 07/31/2022 15:02 EST Lymph Absolute 1.5 K/mcL 07/31/2022 15:02 EST [place] Absolute 0.7 K/mcL 07/31/2022 15:02 EST Eos Absolute 0.1 K/mcL 07/31/2022 15:02 EST Baso Absolute 0.0 K/mcL 07/31/2022 15:02 EST Imm Gran Absolute 0.03 07/31/2022 15:02 EST Sodium Level 135 mmol/L 07/31/2022 15:02 EST Potassium Level 3.7 mmol/L 07/31/2022 15:02 EST Chloride Level 98 mmol/L 07/31/2022 15:02 EST CO2 31 mmol/L 07/31/2022 15:02 EST Alk Phos 67 IntlUnit/L 07/31/2022 15:02 EST AST 41 IntlUnit/L 07/31/2022 15:02 EST ALT 52 IntlUnit/L 07/31/2022 15:02 EST BUN 20 mg/dL 07/31/2022 15:02 EST Glucose Level 101 mg/dL 07/31/2022 15:02 EST Creatinine Level 1.95 mg/dL 07/31/2022 15:02 EST BUN/Creat Ratio 10.3 07/31/2022 15:02 EST Calcium Level 9.3 mg/dL 07/31/2022 15:02 EST Protein Total 7.0 g/dL 07/31/2022 15:02 EST Albumin Level 3.5 g/dL 07/31/2022 15:02 EST Globulin 3.5 07/31/2022 15:02 EST A/G Ratio 1.0 07/31/2022 15:02 EST Bilirubin Total 0.5 mg/dL 07/31/2022 15:02 EST Anion Gap 6.0 07/31/2022 15:02 EST Osmolality 273 mOsm/kg 07/31/2022 15:02 EST eGFR CKD-EPI 47 mL/min/1.73 m2 07/31/2022 15:02 EST Troponin-I 0.01 ng/mL 07/31/2022 15:02 EST Patient/Occupational Health Nurse Manager Signature Patient Name:PEDRO PABLO SANCHEZ I have received this information and my questions have been answered. Patient/Occupational Health Nurse Manager Name: Patient/Occupational Health Nurse Manager Signature: Relationship to Patient: Witness Name/Signature: Date: Electronically Signed on: 07/31/2022 16:49 ESTSigned by:PL XR Chest 2 Views * John Burciaga MD: VERIFY, VERIFY Event Display: Report EXAM DESCRIPTION: XR Chest 2 Views 07/31/2022 INDICATION: CHEST PAIN TECHNIQUE: PA and lateral views of the chest. COMPARISON: 07/12/2022 FINDINGS: The lungs are well expanded and clear with no focal consolidation or pulmonary edema. The cardiomediastinal contour and pleural margins are within normal limits. IMPRESSION: Normal PA and lateral views of the chest. JOB #: [id number] Final Signed by: John Burciaga MD Signed (Electronic Signature): 07/31/2022 4:28 pm Patient Care team information Care Team Personnel Name: JARRELL HOUSER DO Position: No Access Member Role: Primary Care Physician Address: Address: [address] [address] Name: Christina Cruz I Position: Nurse Member Role: ED Nurse Name: Cj Allan MD Position: Physician Member Role: ED Physician Address: Address: [address] [place] [id number] [place] Care Team Related Persons Name: MILLER SANCHEZ
--- OUTSIDE RECORDS SUMMARY | 2023-05-14 12:35 | XMS_ITS | Continuity of Care Document ---
Author Name Unknown Organization [facility] Address [address] [place] [id number] Care Team Providers Care Case Folder Name Role Phone JARRELL HOUSER DO Primary Care Physician Encounter [facility] NBR [id number] Date(s): 04/28/23 - 04/28/23 [facility] [address] [place] [address]- Discharge Disposition: Left Without Being Seen Attending Physician: Bryan Sheldon DO Admitting Physician: [...] # 14 tab, 0 Refill(s), Pharmacy: [facility] #[id number], 178, cm, 04/25/23 7:14:00 EST, [...] 14 tab, 0 Refill(s), 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, Pharmacy: [facility] #[id number], 178, cm, 04/25/23 7:14:00 EST, Height, [...] Daily, # 30 cap, 0 Refill(s), Pharmacy: [facility] #[id number], 178, cm, 02/28/23 14:26:00 EDT, Height/Length [...] Start Date: 09/22/22 Status: Ordered Mental Status 04/28/23 Eye Opening Response Arthur Spontaneous ly Best Verbal Response [place] Oriented Best Motor Response Arthur Obeys comman ds [place] Coma Score 15 Problem List Condition Confirmation [...] [36-38 Deg C ] 36.6 Deg C (04/28/23 3:40 AM) Peripheral Pulse Rate [60-100 bpm] 99 bp m (04/28/23 3:40 AM) Respiratory Rate [12-24 br/min] 20 br/mi n (04/28/23 3:40 AM) Blood Pressure [90-140/60-90 mmHg] 121/8 0mmHg (04/28/23 3:40 AM) Mean Arterial Pressure, Cuff [70-110 mmH g] 94 mmHg (04/28/23 3:40 AM) Weight 104.00 kg (04/28/23 3:40 AM) Weight Dosing 104.00 kg (04/28/23 3:59 AM) Height 178.000 cm (04/28/23 3:59 AM) 178.000 cm (04/28/23 3:40 AM) Body Mass Index 33.000 kg/m2 (04/28/23 3:40 AM) Social History Social History Type Response Tobacco Never tobacco user T obacco Use:. Sex Patient Care team information Care Team Personnel Name: JARRELL HOUSER DO Position: No Access Member Role: Primary Care Physician Address: Address: [address] [address]- [place] Name: Kamla Swartz Position: Nurse Member Role: ED Nurse Care Team Related Persons Name: ARY SANCHEZ Name: MILLER SANCHEZ
--- OUTSIDE RECORDS SUMMARY | 2023-05-14 12:35 | XMS_ITS | Continuity of Care Document ---
Author Name Unknown Organization [facility] Address [address] [place] [id number] Care Team Providers [facility] Administrator Name Role Phone JARRELL HOUSER DO Primary Care Physician Encounter [facility] FIN NBR [id number] Date(s): 01/27/23 - 01/27/23 [facility] [address] [place], [place] [address] Encounter Diagnosis Dyspnea(Discharge Diagnosis) - 01/27/23 Discharge Disposition: Home or Self Care Attending Physician: Mariann Mckeon MD Admitting Physician: Mariann Mckeon MD Allergies, Adverse Reactions, Alerts Substance Reaction Severity Status codeine Unknown Active amoxicillin Vomiting symptom Moderate Active penicillin Moderate Active Functional Status 01/27/23 Other exposure to Infectious Disease Non e [...] Start Date: 09/22/22 Status: Ordered Mental Status 01/27/23 Eye Opening Response [place] Spontaneous ly Best Verbal Response [place] Oriented Best Motor Response Arthur Obeys comman [...] Active 1elevated Results Laboratory List Name Date Automated Diff 01/27/23 CBC w/ Diff 01/27/23 Comprehensive Metabolic Panel (CMP) 01/27 Troponin-I High Sensitivity 01/27/23 SARS-CoV-2 (Covid-19) AG (Leonora) POCT Most recent to oldest [Reference Range]: 1 WBC [4.8-10.8 K/mcL] 6.0 K/mcL (01/27/23 9:44 AM) RBC [4.20-6.10 Million/mcL] 3.71 Million /mcL *LOW* (01/27/23 9:44 AM) Neutro Auto [42.2-75.2 %] 52.3 % (01/27/23 9:44 AM) Lymph Auto [20.5-51.1 %] 30.1 % (01/27/23 9:44 AM) [place] Auto [1.7-9.3 %] 14.0 % *HI* (01/27/23:44 AM) Basophil Auto [0.0-0.8 %] 0.5 % (01/27/23:44 AM) BUN [8-26 mg/dL] 20 mg/dL (01/27/23:44 AM) Glucose Level [74-106 mg/dL] 81 mg/dL (01/27/23:44 AM) Potassium Level [3.5-5.1 mmol/L] 3.9 mmo l/L (01/27/23:44 AM) Baso Absolute [0.0-0.2 K/mcL] 0.0 K/mcL (01/27/23:44 AM) MCV [80.0-94.0 fL] 92.7 fL (01/27/2344 AM) AST [15-41 IntlUnit/L] 28 IntlUnit/L (01/27/23:44 AM) ALT [17-63 IntlUnit/L] 31 IntlUnit/L (01/27/23:44 AM) MCHC [32.0-36.0 g/dL] 34.0 g/dL (01/27/23:44 AM) Osmolality [275-295 mOsm/kg] 277 mOsm/kg (01/27/23:44 AM) Sodium Level [134-143 mmol/L] 138 mmol/L (01/27/23:44 AM) Lymph Absolute [1.2-3.4 K/mcL] 1.8 K/mcL (01/27/23:44 AM) Hct [42.0-52.0 %] 34.4 % *LOW* (01/27/2344 AM) Calcium Level [8.9-10.3 mg/dL] 9.5 mg/dL (01/27/23:44 AM) [place] Absolute [0.1-0.6 K/mcL] 0.8 K/mcL *HI* (01/27/23:44 AM) Albumin Level [3.5-5.0 g/dL] 3.5 g/dL (01/27/23:44 AM) Protein Total [6.5-8.1 g/dL] 7.2 g/dL (8/14/23 9:44 AM) MCH [27.0-31.0 pg] 31.5 pg *HI* (01/27/23 9:44 AM) Neutro Absolute [1.4-6.5 K/mcL] 3.2 K/mc L (01/27/23 9:44 AM) Bilirubin Total [0.2-1.2 mg/dL] 0.5 mg/d L (01/27/23:44 AM) Hgb [14.0-18.0 g/dL] 11.7 g/dL *LOW* (01/27/23:44 AM) Alk Phos [38-130 IntlUnit/L] 102 IntlUni t/L (01/27/23:44 AM) MPV [7.4-10.4 fL] 11.0 fL *HI* (01/27/23:44 AM) Platelets [130-400 K/mcL] 242 K/mcL (01/27/23:44 AM) CO2 [22-32 mmol/L] 33 mmol/L *HI* (01/27/23:44 AM) Eos Absolute [0.0-0.2 K/mcL] 0.2 K/mcL (01/27/23:44 AM) Chloride Level [98-111 mmol/L] 97 mmol/L *LOW* (01/27/23:44 AM) RDW-CV [11.5-14.5 %] 12.7 % (01/27/23 9:44 AM) A/G Ratio 0.9 *NA* (01/27/23:44 AM) BUN/Creat Ratio [8.0-20.0] 14.1 (01/27/23 9:44 AM) Globulin 3.7 *NA* (01/27/23 9:44 AM) Imm Gran Absolute 0.02 *NA* (01/27/23:44 AM) Imm Gran Auto [0.0-0.5 %] 0.3 % (01/27/23 9:44 AM) Slide Review Not Indicated (01/27/23:44 AM) Creatinine Level [0.61-1.24 mg/dL] 1.42 mg/dL *HI* (01/27/23:44 AM) SARS-CoV or CoV-2 (COVID-19) Ag (Leonora) [Negative] Negative (01/27/23 8:53 AM) Employed in healthcare? Unknown *NA* (01/27/23 8:53 AM) Symptomatic as defined by CDC? Unknown *NA* (01/27/23 8:53 AM) Date of onset (Lab) Unknown *NA* (01/27/23 8:53 AM) Hospitalized due to COVID-19? Unknown *NA* (01/27/23 8:53 AM) In ICU? Unknown *NA* (01/27/23 8:53 AM) Group care resident? Unknown *NA* (01/27/23 8:53 AM) status? Unknown *NA* (01/27/23 8:53 AM) Troponin-I HS [<=20 ng/L] 2 ng/L 1 (01/27/23 9:44 AM) Anion Gap [3.0-12.0] 8.0 (01/27/23 9:44 AM) Eos, Auto [0.00-3.00 %] 2.80 % (01/27/23 9:44 AM) eGFR CKD-EPI [>=60 mL/min/1.73 m2] 69 mL /min/1.73 m2 (01/27/23 9:44 AM) 1Interpretive Data: The [facility] ACCESS high-sensitivity Troponin I [...] heart disease from those who do not. Radiology Reports * Exam Date Time Procedure Performing Provider Status 01/27/23 10:05 AM XR Spine Cervical 2 or 3 Views Daniel Alcaraz; Alex (Verified) Notes: (XR Spine Cervical 2 or 3 Views) Reason For Exam: left arm pain when turn neck XR Spine Cervical 2 or 3 Views PROCEDURE INFORMATION: Exam: XR Cervical Spine Exam date and time: 01/27/2023 9:58 AM Age: 27 years old Clinical indication: Neck pain; Additional info: Left arm pain when turn neck TECHNIQUE: Imaging protocol: Radiologic exam of the cervical spine. Views: 2 or 3 views. COMPARISON: CR XR CERVICAL 3 VIEW 10/17/2022 11:17 PM FINDINGS: Bones/joints: No acute osseous pathology in the cervical spine. Anatomic alignment. No significant disc space narrowing. Old T1 spinous process fracture again demonstrated. Partial obscuration of the odontoid on the open mouth view. Soft tissues: Surgical clips again demonstrated. When correlating with the previous study, no significant interval changes are present. IMPRESSION: 1. No acute osseous pathology in the cervical spine. 2. Old T1 spinous process fracture again demonstrated THIS DOCUMENT HAS BEEN ELECTRONICALLY SIGNED BY TONNY DOUGHERTY MD on 01/27/2023 11:08 AM Final Signed by: Tonny Dougherty MD Signed (Electronic Signature): 01/27/2023 11:08 am * Exam Date Time Procedure Performing Provider Status 01/27/23 10:05 AM XR Chest 1 View Daniel Alcaraz (Verified) Notes: (XR Chest 1 View) Reason For Exam: dyspnea XR Chest 1 View PROCEDURE INFORMATION: Exam: XR Chest Exam date and time: 01/27/2023 9:57 AM Age: 27 years old Clinical indication: Pain; On breathing; Additional info: Dyspnea TECHNIQUE: Imaging protocol: Radiologic exam of the chest. Views: 1 view. COMPARISON: CR XR CHEST SINGLE VIEW 01/23/2023 10:59 AM FINDINGS: Lungs: Hypoinflation, without acute airspace disease. Pleural spaces: No pleural effusion. Heart/Mediastinum: Epicardial fat, with normal configuration of the heart. Bones/joints: Unremarkable. IMPRESSION: Hypoinflation, without acute airspace disease. THIS DOCUMENT HAS BEEN ELECTRONICALLY SIGNED BY TONNY DOUGHERTY MD on 01/27/2023 11:05 AM Final Signed by: Tonny Dougherty MD Signed (Electronic Signature): 01/27/2023 11:05 am Vital Signs Most recent to oldest [Reference Range]: 1 Temperature Temporal Artery [36-38 Deg C ] 36.1 Deg C (01/27/23 9:23 AM) Peripheral Pulse Rate [60-100 bpm] 67 bp m (01/27/23 9:23 AM) Respiratory Rate [12-24 br/min] 18 br/mi n (01/27/23 9:23 AM) Blood Pressure [90-140/60-90 mmHg] 116/7 9mmHg (01/27/23 9:23 AM) Weight Dosing 106.00 kg (01/27/23 9:39 AM) Weight Estimated 106.00 kg (01/27/23 9:23 AM) Height/Length Dosing 177.000 cm (01/27/23 9:39 AM) Height/Length Estimated 177.000 cm (01/27/23 9:23 AM) Social History Social History Type Response Tobacco Never tobacco user T obacco Use:. Sex Hospital Discharge Instructions Patient Education 01/27/2023 10:12:23 Shortness of Breath, Adult Shortness of Breath, Adult Shortness of breath is when a person has trouble breathing or when a person feels like she or he ishaving trouble breathing in enough air. Shortness of breath could be a sign of a medical problem. Follow these instructions at home: Pollutants ??? Do not use any products that contain nicotine or tobacco. These products include cigarettes, chewing tobacco, and vaping devices, such as e-cigarettes. This also includes cigars and pipes. If youneed help quitting, ask your health care provider. ??? Avoid things that can irritate your airways, including: ??? Smoke. This includes campfire smoke, forest fire smoke, and secondhand smoke from tobacco products. Do not smoke or allow others to smoke in your home. ??? Mold. ??? Dust. ??? Air pollution. ??? Chemical fumes. ??? Things that can give you an allergic reaction (allergens) if you have allergies. Common allergens include pollen from grasses or trees and animal dander. ??? Keep your living space clean and free of mold and dust. General instructions ??? Pay attention to any changes in your symptoms. ??? Take sdzq-xsd-dyalata and prescription medicines only as told by your health care provider. This includes oxygen therapy and inhaled medicines. ??? Rest as needed. ??? Return to your normal activities as told by your health care provider. Ask your health care provider what activities are safe for you. ??? Keep all follow-up visits. This is important. Contact a health care provider if: ??? Your condition does not improve as soon as expected. ??? You have a hard time doing your normal activities, even after you rest. ??? You have new symptoms. ??? You cannot walk up stairs or exercise the way that you normally do. Get help right away if: ??? Your shortness of breath gets worse. ??? You have shortness of breath when you are resting. ??? You feel light-headed or you faint. ??? You have a cough that is not controlled with medicines. ??? You cough up blood. ??? You have pain with breathing. ??? You have pain in your chest, arms, shoulders, or abdomen. ??? You have a fever. These symptoms may be an emergency. Get help right away. Call 911. ??? Do not wait to see if the symptoms will go away. ??? Do not drive yourself to the hospital. Summary ??? Shortness of breath is when a person has trouble breathing enough air. It can be a sign of a medical problem. ??? Avoid things that irritate your lungs, such as smoking, pollution, mold, and dust. ??? Pay attention to changes in your symptoms and contact your health care provider if you have a hard time completing daily activities because of shortness of breath. This information is not intended to replace advice given to you by your health care provider. Make sure you discuss any questions you have with your health care provider. Document Revised: 01/19/2022 Document Reviewed: 01/19/2022 [employer] Patient Education ?? 2022 [employer]. Follow Up Care 01/27/2023 09:23:27 With:primary care physician Address: When:3 to 5 days Physician Emergency department Note * Mariann Mckeon MD: PERFORM Event Display: ED Note Physician Authored Date: [id number] DESIRE SANCHEZ :1995 Age:27 years Sex:Male Visit Date:01/27/2023 Primary Care Physician: JARRELL HOUSER DO Basic Information Time Seen: Mariann Mckeon MD / 01/27/2023 09:24 Chief Complaint Patient reports shortness of breath starting 2 days ago. Worsens with exertion. Reports left arm numbness radiating from neck when turns head to left side. Denies chest pain. History Of Present Illness: This patient is a 27-year-old male with a history of M EN type I who presents today for evaluation of shortness of breath and left arm numbness.?? Patient has had frequent visits to the emergency department over the last few months.?? Patient states that starting 2 days ago when he??holds his had??back, to the side and slightly rotated that he then developed a sharp pain that goes down??the lateral and medial aspects of the upper arm??to the wrist.?? It does not bother him when he is not holding his head in this awkward position.?? The patient??denies any recent trauma.?? Patient also states that he has been having some shortness of breath since last night.?? Patient states it was similar to the most recent ER visit that he had which was Only 4 days ago.?? At that time the patient took a nap and felt better after he woke up.?? Patient had negative chest x-ray at that time and a negativetroponin.?? Patient states that he called his PCP but was told that he could not get an appointmentuntil next Friday which is what prompted his visit today.?? He states that he typically walks 1.5 miles per day and does not describe any decreased exercise tolerance. Review of Systems: CONSTITUTIONAL: ??[No fevers or chills.] EYES: ??[No change in vision.] ENT: ??[No sore throat. ??No headache. ??No neck pain.] CARDIOVASCULAR: ??[No chest pain, palpitations or passing out episodes.] RESPIRATORY: ??[No cough, +shortness of breath no hemoptysis.] GI: ??[No abdominal pain. No nausea, vomiting or diarrhea.] : ??[No change in urination.] SKIN: ??[No rash. ] NEUROLOGIC: [No numbness or weakness.] MUSCULOSKELETAL: [No swelling or pain.] PSYCHIATRIC: ??[No depression.] LYMPH: ??[No swelling.] Review of systems otherwise as stated in HPI Physical Exam Vitals & Measurements T:??36.1?C ??(Temporal Artery)?? HR:??67??(Peripheral)?? RR:??18?? BP:??116/79?? SpO2:??97%?? HT:??177.000??cm?? WT:??106.00??kg??(Estimated)?? O2 Therapy:??Room air?? General: ??AAOx3. ??GCS15. ??No [...] obvious deformity. ??Strength Intact 5/5 throughout. ??No tenderness to calf space.?? Symmetrical strength in the bilateral upper extremities with handgrip??which is effort dependent. Neuro: Alert and oriented. Answering questions appropriately with clear speech. Motor and sensory grossly normal in all extremities.?? Medical Decision Makin-year-old male with a history of M EN type I who presents today for evaluation of??left upper extremity??discomfort when he??turns his neck in 1 particular position??with it bent to the side, twisted and held back slightly.?? He also complains of shortness of breath which she had also 4 days ago.?? The patient??had an EKG which showed a sinus rhythm with a rate of [address] segment changes.Patient's lab work shows an unremarkable CBC and CMP.?? The patient's creatinine is 1.42 but his baseline is between 1.3 and 1.5.?? Troponin was 2 which is reassuring.?No decreased exercise tolerance.?? COVID test was negative. Patient's chest x-ray was negative.?? X-ray of the cervical spine farnaz ws no acute process.?? I think this is unlikely to represent PE .?? He has no tachycardia, hypoxia,pleuritic chest pain or calf swelling/tenderness with calf squeeze.?? On reexamination the patient is sleeping comfortably.?? He is in agreement with plan for discharge home and follow-up with his PCP. Procedure No Qualifying Data Assessment/Plan 1.??Dyspnea??R06.00 Orders: Discharge Patient, 01/27/23 11:12:00 EDT Patient Education Shortness of Breath, Adult Follow Up With When Contact Information [...] age: Unknown. Cause of : Diagnostic Results XR Chest 1 View 01/27/2023 11:06 EDT XR Spine Cervical 2 or 3 Views 01/27/2023 11:08 EDT XR Spine Cervical 2 or 3 Views ?? 01/27/23 09:58:45 PROCEDURE INFORMATION: Exam: XR Cervical Spine Exam date and time: 01/27/2023 9:58 AM Age: 27 years old Clinical indication: Neck pain; Additional info: Left arm pain when turn neck ?? TECHNIQUE: Imaging protocol: Radiologic exam of the cervical spine. Views: 2 or 3 views. ?? COMPARISON: CR XR CERVICAL 3 VIEW 10/17/2022 11:17 PM ?? FINDINGS: Bones/joints: No acute osseous pathology in the cervical spine. Anatomic alignment. No significant disc space narrowing. Old T1 spinous process fracture again demonstrated. Partial obscuration of the odontoid on the open mouth view. Soft tissues: Surgical clips again demonstrated. ?? When correlating with the previous study, no significant interval changes are present. ?? IMPRESSION: 1. No acute osseous pathology in the cervical spine. 2. Old T1 spinous process fracture again demonstrated ? THIS DOCUMENT HAS BEEN ELECTRONICALLY SIGNED BY TONNY DOUGHERTY MD on 01/27/2023 11:08 AM ?? Signed By: Tonny Dougherty MD ?? XR Chest 1 View ?? 01/27/23 09:57:53 PROCEDURE INFORMATION: Exam: XR Chest Exam date and time: 01/27/2023 9:57 AM Age: 27 years old Clinical indication: Pain; On breathing; Additional info: Dyspnea ?? TECHNIQUE: Imaging protocol: Radiologic exam of the chest. Views: 1 view. ?? COMPARISON: CR XR CHEST SINGLE VIEW 01/23/2023 10:59 AM ?? FINDINGS: Lungs: Hypoinflation, without acute airspace disease. Pleural spaces: No pleural effusion. Heart/Mediastinum: Epicardial fat, with normal configuration of the heart. Bones/joints: Unremarkable. ?? IMPRESSION: Hypoinflation, without acute airspace disease. ? THIS DOCUMENT HAS BEEN ELECTRONICALLY SIGNED BY TONNY DOUGHERTY MD on 01/27/2023 11:05 AM ?? Signed By: Tonny Doughrety MD Lab Results CBC and Differential?? LATEST RESULTS?? HISTORICAL RESULTS?? WBC?? 01/27/23 09:44?? 6.0?? 01/23/23?? 6.3?? RBC?? 01/27/23 09:44?? 3.71 ??Low?? 01/23/23?? 3.57 ??Low?? Hgb?? 01/27/23 09:44?? 11.7 ??Low?? 01/23/23?? 11.2 ??Low?? Hct?? 01/27/23 09:44?? 34.4 ??Low?? 01/23/23?? 33.2 ??Low?? MCV?? 01/27/23 09:44?? 92.7?? 01/23/23?? 93.0?? MCH?? 01/27/23 09:44?? 31.5 ??High?? 01/23/23?? 31.4 ??High?? MCHC?? 01/27/23 09:44?? 34.0?? 01/23/23?? 33.7?? RDW-CV?? 01/27/23 09:44?? 12.7?? 01/23/23?? 12.6?? Platelets?? 01/27/23 09:44?? 242?? 01/23/23?? 226?? MPV?? 01/27/23 09:44?? 11.0 ??High?? 01/23/23?? 11.1 ??High?? Neutro Auto?? 01/27/23 09:44?? 52.3?? 01/23/23?? 59.8?? Lymph Auto?? 01/27/23 09:44?? 30.1?? 01/23/23?? 23.0?? [place] Auto?? 01/27/23 09:44?? 14.0 ??High?? 01/23/23?? 13.4 ??High?? Eos, Auto?? 01/27/23 09:44?? 2.80?? 01/23/23?? 3.00?? Basophil Auto?? 01/27/23 09:44?? 0.5?? 01/23/23?? 0.5?? Imm Gran Auto?? 01/27/23 09:44?? 0.3?? 01/23/23?? 0.3?? Neutro Absolute?? 01/27/23 09:44?? 3.2?? 01/23/23?? 3.7?? Lymph Absolute?? 01/27/23 09:44?? 1.8?? 01/23/23?? 1.4?? [place] Absolute?? 01/27/23 09:44?? 0.8 ??High?? 01/23/23?? 0.8 ??High?? Eos Absolute?? 01/27/23 09:44?? 0.2?? 01/23/23?? 0.2?? Baso Absolute?? 01/27/23 09:44?? 0.0?? 01/23/23?? 0.0?? Imm Gran Absolute?? 01/27/23 09:44?? 0.02?? 01/23/23?? 0.02?? Slide Review?? 01/27/23 09:44?? Not Indicated?? 01/23/23?? Not Indicated? Routine Chemistry?? LATEST RESULTS?? HISTORICAL RESULTS?? Sodium Level?? 01/27/23 09:44?? 138?? 01/23/23?? 138?? Potassium Level?? 01/27/23 09:44?? 3.9?? 01/23/23?? 4.1?? Chloride Level?? 01/27/23 09:44?? 97 ??Low?? 01/23/23?? 99?? CO2?? 01/27/23 09:44?? 33 ??High?? 01/23/23?? 31?? Alk Phos?? 01/27/23 09:44?? 102?? 01/23/23?? 101?? AST?? 01/27/23 09:44?? 28?? 01/23/23?? 37?? ALT?? 01/27/23 09:44?? 31?? 01/23/23?? 36?? BUN?? 01/27/23 09:44?? 20?? 01/23/23?? 16?? Glucose Level?? 01/27/23 09:44?? 81?? 01/23/23?? 103?? Creatinine Level?? 01/27/23 09:44?? 1.42 ??High?? 01/23/23?? 1.51 ??High?? BUN/Creat Ratio?? 01/27/23 09:44?? 14.1?? 01/23/23?? 10.6?? eGFR CKD-EPI?? 01/27/23 09:44?? 69?? 01/23/23?? 64?? Calcium Level?? 01/27/23 09:44?? 9.5?? 01/23/23?? 9.3?? Protein Total?? 01/27/23 09:44?? 7.2?? 01/23/23?? 7.1?? Albumin Level?? 01/27/23 09:44?? 3.5?? 01/23/23?? 3.3 ??Low?? Globulin?? 01/27/23 09:44?? 3.7?? 01/23/23?? 3.8?? A/G Ratio?? 01/27/23 09:44?? 0.9?? 01/23/23?? 0.9?? Bilirubin Total?? 01/27/23 09:44?? 0.5?? 01/23/23?? 0.7?? Anion Gap?? 01/27/23 09:44?? 8.0?? 01/23/23?? 8.0?? Osmolality?? 01/27/23 09:44?? 277?? 01/23/23?? 277? Cardiac Isoenzymes?? LATEST RESULTS?? HISTORICAL RESULTS?? Troponin-I HS?? 01/27/23 09:44?? 2?? 01/23/23?? <2? Electronically Signed on 01/27/23 11:13 AM Mariann Mckeon MD Emergency department Discharge instructions * Mariann Mckeon MD: PERFORM Event Display: ED Discharge Information Authored Date: [id number] LAURA DESIRE MANRIQUEZ :1995 Age:27 years Sex:Male Visit Date:01/27/2023 Primary Care Physician: JARRELL HOUSER DO Discharge Instructions We would like to thank you for allowing us to assist you with your healthcare needs. The following includes patient education materials and information regarding your injury/illness. Diagnosis from Today's Visit Dyspnea Discharge Vitals Temperature??(Temporal Artery) 97.0 ??F (36.1 ??C) Heart Rate??(Peripheral) 67 Respiratory Rate?? 18 Blood Pressure?? 116/79?? Height?? 69.69 in (177.000 cm) Weight??(Estimated) 233.73 lb (106.00 kg) Allergies amoxicillin??(Vomiting symptom) penicillin codeine What [...] for as needed for pain Education Materials Shortness of Breath, Adult Shortness of breath is when a person has trouble breathing or when a person feels like she or he ishaving trouble breathing in enough air. Shortness of breath could be a sign of a medical problem. Follow these instructions at home: Pollutants ? Do not use any products that contain nicotine or tobacco. These products include cigarettes, chewing tobacco, and vaping devices, such as e-cigarettes. This also includes cigars and pipes. If you need help quitting, ask your health care provider. ? Avoid things that can irritate your airways, including: ? Smoke. This includes campfire smoke, forest fire smoke, and secondhand smoke from tobacco products.Do not smoke or allow others to smoke in your home. ? Mold. ? Dust. ? Air pollution. ? Chemical fumes. ? Things that can give you an allergic reaction (allergens) if you have allergies. Common allergens include pollen from grasses or trees and animal dander. ? Keep your living space clean and free of mold and dust. General instructions ? Pay attention to any changes in your symptoms. ? Take vjog-bqu-crzxciv and prescription medicines only as told by your health care provider. This includes oxygen therapy and inhaled medicines. ? Rest as needed. ? Return to your normal activities as told by your health care provider. Ask your health care provider what activities are safe for you. ? Keep all follow-up visits. This is important. Contact a health care provider if: ? Your condition does not improve as soon as expected. ? You have a hard time doing your normal activities, even after you rest. ? You have new symptoms. ? You cannot walk up stairs or exercise the way that you normally do. Get help right away if: ? Your shortness of breath gets worse. ? You have shortness of breath when you are resting. ? You feel light-headed or you faint. ? You have a cough that is not controlled with medicines. ? You cough up blood. ? You have pain with breathing. ? You have pain in your chest, arms, shoulders, or abdomen. ? You have a fever. These symptoms may be an emergency. Get help right away. Call 911. ? Do not wait to see if the symptoms will go away. ? Do not drive yourself to the hospital. Summary ? Shortness of breath is when a person has trouble breathing enough air. It can be a sign of a medical problem. ? Avoid things that irritate your lungs, such as smoking, pollution, mold, and dust. ? Pay attention to changes in your symptoms and contact your health care provider if you have a hard time completing daily activities because of shortness of breath. This information is not intended to replace advice given to you by your health care provider. Make sure you discuss any questions you have with your health care provider. Document Revised: 01/19/2022 Document Reviewed: 01/19/2022 [employer] Patient Education ?? 2022 [employer] Tests Performed Radiology XR Chest 1 View 01/27/2023 11:06 EDT XR Spine Cervical 2 or 3 Views 01/27/2023 11:08 EDT Lab Test Name Test Result Date/Time WBC 6.0 K/mcL 01/27/2023 09:44 EDT RBC 3.71 Million/mcL 01/27/2023 09:44 EDT Hgb 11.7 g/dL 01/27/2023 09:44 EDT Hct 34.4 % 01/27/2023 09:44 EDT MCV 92.7 fL 01/27/2023 09:44 EDT MCH 31.5 pg 01/27/2023 09:44 EDT MCHC 34.0 g/dL 01/27/2023 09:44 EDT RDW-CV 12.7 % 01/27/2023 09:44 EDT Platelets 242 K/mcL 01/27/2023 09:44 EDT MPV 11.0 fL 01/27/2023 09:44 EDT Neutro Auto 52.3 % 01/27/2023 09:44 EDT Lymph Auto 30.1 % 01/27/2023 09:44 EDT [place] Auto 14.0 % 01/27/2023 09:44 EDT Eos, Auto 2.80 % 01/27/2023 09:44 EDT Basophil Auto 0.5 % 01/27/2023 09:44 EDT Imm Gran Auto 0.3 % 01/27/2023 09:44 EDT Neutro Absolute 3.2 K/mcL 01/27/2023 09:44 EDT Lymph Absolute 1.8 K/mcL 01/27/2023 09:44 EDT [place] Absolute 0.8 K/mcL 01/27/2023 09:44 EDT Eos Absolute 0.2 K/mcL 01/27/2023 09:44 EDT Baso Absolute 0.0 K/mcL 01/27/2023 09:44 EDT Imm Gran Absolute 0.02 01/27/2023 09:44 EDT Slide Review Not Indicated 01/27/2023 09:44 EDT Sodium Level 138 mmol/L 01/27/2023 09:44 EDT Potassium Level 3.9 mmol/L 01/27/2023 09:44 EDT Chloride Level 97 mmol/L 01/27/2023 09:44 EDT CO2 33 mmol/L 01/27/2023 09:44 EDT Alk Phos 102 IntlUnit/L 01/27/2023 09:44 EDT AST 28 IntlUnit/L 01/27/2023 09:44 EDT ALT 31 IntlUnit/L 01/27/2023 09:44 EDT BUN 20 mg/dL 01/27/2023 09:44 EDT Glucose Level 81 mg/dL 01/27/2023 09:44 EDT Creatinine Level 1.42 mg/dL 01/27/2023 09:44 EDT BUN/Creat Ratio 14.1 01/27/2023 09:44 EDT eGFR CKD-EPI 69 mL/min/1.73 m2 01/27/2023 09:44 EDT Calcium Level 9.5 mg/dL 01/27/2023 09:44 EDT Protein Total 7.2 g/dL 01/27/2023 09:44 EDT Albumin Level 3.5 g/dL 01/27/2023 09:44 EDT Globulin 3.7 01/27/2023 09:44 EDT A/G Ratio 0.9 01/27/2023 09:44 EDT Bilirubin Total 0.5 mg/dL 01/27/2023 09:44 EDT Anion Gap 8.0 01/27/2023 09:44 EDT Osmolality 277 mOsm/kg 01/27/2023 09:44 EDT Troponin-I HS 2 ng/L 01/27/2023 09:44 EDT SARS-CoV or CoV-2 (COVID-19) Ag (Leonora) Negative 01/27/2023 08:53 EDT Employed in healthcare? Unknown 01/27/2023 08:53 EDT Symptomatic as defined by CDC? Unknown 01/27/2023 08:53 EDT Date of onset (Lab) Unknown 01/27/2023 08:53 EDT Hospitalized due to COVID-19? Unknown 01/27/2023 08:53 EDT In ICU? Unknown 01/27/2023 08:53 EDT Group care resident? Unknown 01/27/2023 08:53 EDT status? Unknown 01/27/2023 08:53 EDT Patient/Evs Attendant Signature Patient Name:DESIRE SANCHEZ I have received this information and my questions have been answered. Patient/Evs Attendant Name: Patient/Evs Attendant Signature: Relationship to Patient: Witness Name/Signature: Date: Electronically Signed on: 01/27/2023 11:12 EDTSigned by:AF Patient Care team information Care Team Personnel Name: JARRELL HOUSER DO Position: No Access Member Role: Primary Care Physician Address: Address: [address] [address]- [place] Name: Mariann Mckeon MD Position: Physician Member Role: Admitting Physician Address: Address: [address] [place] [id number] Name: Cami Melgar Position: Nurse Member Role: ED Nurse Care Team Related Persons Name: ARY SANCHEZ Address: Home Name: MILLER SANCHEZ Address: Home
--- OUTSIDE RECORDS SUMMARY | 2023-05-14 12:35 | XMS_ITS | Continuity of Care Document ---
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 Mechanic Name Role Phone JARRELL HOUSER DO Primary Care Physician Encounter [facility] NBR [id number] Date(s): 04/08/23 - 04/08/23 [facility] Ambulatory Clinics [address] [place] [address]- Encounter Diagnosis Breast pain(Discharge Diagnosis) - 04/08/23 Mastodynia(Final) - Discharge Disposition: Home or Self Care Attending Physician: Phuong Adnrade APRN Allergies, Adverse Reactions, Alerts Substance Reaction Severity Status codeine Unknown Active amoxicillin Vomiting symptom Moderate Active penicillin Moderate Active Functional Status 04/08/23 Other exposure to Infectious Disease Non e [...] # 30 cap, 0 Refill(s), Pharmacy: [facility], 178, cm, 02/28/23 14:26:00 EDT, Height/Length [...] 1 Temperature Tympanic [36.6-37.9 Deg C] 3 7.4 Deg C (04/08/23 10:46 AM) Peripheral Pulse Rate [60-100 bpm] 101 b pm *HI* (04/08/23 10:46 AM) Respiratory Rate [12-24 br/min] 16 br/mi n (04/08/23 10:46 AM) Blood Pressure [90-140/60-90 mmHg] 134/7 6mmHg (04/08/23 10:46 AM) Mean Arterial Pressure, Cuff [65-140 mmH g] 95 mmHg (04/08/23 10:46 AM) Social History Social History Type Response Tobacco Never tobacco user T obacco Use:. Sex Physician Outpatient Note * Phuong Andrade, TYPEWRITER ALIGNER: PERFORM Event Display: Office Clinic Note Physician Authored Date: [id number] DESIRE SANCHEZ :1995 Age:27 years Sex:Male Visit Date:04/08/2023 Primary Care Physician: JARRELL HOUSER DO Chief Complaint patient noticed tender spot on right of his breast. patient states it is painful and hot to touch as well as painful when coughing or extending his arms forward. patient states right side face is redand hot to touch History of Present Illness Patient is a 27-year-old male who presents today with a chief complaint of left- sided breast tenderness. ??He states he awoke this morning??noting a??pinpoint tender area to the left breast.?? He states he feels that the left breast is??slightly larger than the right. Review of Systems see hpi Physical Exam Vitals & Measurements T:??37.4?C ??(Tympanic)?? HR:??101??(Peripheral)?? RR:??16?? BP:??134/76?? SpO2:??100%?? Pain Score:??8?? General: Well-appearing, no acute distress, alert and oriented x3. Skin: No concerning lesions in examined areas. Head: Normal cephalic without trauma or injury. Neck: Supple, nontender, normal range of motion Eye: Pupils reactive. ??Conjunctiva clear. Sclera nonicteric. ??No swelling, obvious foreign bodies. ??Extraocular movement intact. ENT ear: Normal external, canal clear, TMs normal bilaterally. ??Nose: No discharge, normal mucosa,no swelling. ??Sinuses: Nontender to percussion. ??Oropharynx: Normal external, mucosal without mass, lesions, ulcerations.?No erythema, exudate, lesions, uvula midline. Cardiovascular: Regular rate and rhythm. ??No murmur, rubs, or gallops. Respiratory: Clear to auscultation bilaterally. ??No wheezes, rales, rhonchi. Chest: No deformity.? normal inspiration and expiration.?? Is pinpoint tenderness of the left breast tissue, no??lymphadenopathy or??palpable mass Medical Decision Making: Patient was evaluated for reported left-sided??breast pain. ??Exam??does note a??pinpoint tenderness??to the left breast approximately a located 9:00. ??The skin is superficially pink but I feel thisis more from the patient continuing to press on the area??of concern. ??I reiterated the importanceto??leave the area alone??and continue to monitor.?? Patient does utilize??urgent and emergent healthcare??in excess. ??We had a delicate conversation regarding?that perhaps his primary care??office can establish him with a specialist??to??follow and dissect the majority of these concerns.?? I did speak to him??about??lack of improvement and that his primary care could schedule a ultrasound??if they are concerned about a mass. Assessment/Plan 1.??Breast pain??N64.4 Patient Instructions I would recommend ice or heat to area of discomfort, call your primary care??and see if they will schedule you an ultrasound of the left breast tissue??if you do not have improvement.?? Seek care forfever, increased pain or swelling. 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 Nausea Numbness Parathyroid PTSD - Post-traumatic stress disorder Torticollis Historical Cellulitis History of opioid abuse Procedure/Surgical History ???Parathyroid Medications acetaminophen 325 mg oral capsule, 325 mg= 1 cap, Oral, every 4 hr, PRN calcitriol 0.25 mcg oral capsule, 0.25 mcg= 1 cap, Oral, BID clonazePAM 1 mg oral tablet, 1 mg= 1 tab, Oral, BID dicyclomine 20 mg oral tablet gabapentin 300 mg oral capsule, 300 mg= 1 cap, Oral, BID Mag-G, 500 mg, BID methadone 10 mg/5 mL oral solution, 110 mg, Oral, every morning NexIUM 20 mg oral delayed release capsule, 20 mg= 1 cap, Oral, Daily omeprazole 40 mg oral delayed release capsule, 40 mg= 1 cap, Oral, Daily Phenergan 12.5 mg oral tablet Tums 500 mg oral tablet, chewable, 500 mg= 1 tab, Chewed, BID Allergies amoxicillin??(Vomiting symptom) penicillin codeine Social History [...] Unknown. Cause of : Electronically Signed on 04/08/23 03:49 PM Phuong Andrade APRN Outpatient Summary note * Phuong Andrade APRN: PERFORM Event Display: Ambulatory Patient Summary Authored Date: [id number] DESIRE SANCHEZ :1995 Age:27 years Sex:Male Visit Date:04/08/2023 Primary Care Physician: JARRELL HOUSER DO Ambulatory Visit Instructions We would like to thank you for allowing us to assist you with your healthcare needs. The following includes patient education materials and information regarding your injury/illness. Your Next Steps Instructions From Your Care Team I would recommend ice or heat to area of discomfort, call your primary care??and see if they will schedule you an ultrasound of the left breast tissue??if you do not have improvement.?? Seek care forfever, increased pain or swelling. Scheduled Future Appointments 2022 9:30 AM EDT ?? Where: [facility] Status: Confirmed Medications What How Much When Why Instructions Unchanged acetaminophen (acetaminophen 325 mg oral capsule) [...] of breath Chest pain due to GERD Your Summary Your Diagnosis Breast pain Problems Ongoing - Any problem that you are currently receiving treatment for. 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 Cellulitis History of opioid abuse Your Care Team Attending Physician - Phuong Andrade APRN Primary Care Physician - JARRELL HOUSER DO Discharge Vitals Temperature??(Tympanic) 99.3 ??F (37.4 ??C) Heart Rate??(Peripheral) 101 Respiratory Rate?? 16 Blood Pressure?? 134/76?? Allergies amoxicillin??(Vomiting symptom) penicillin codeine Electronically Signed on: 04/08/2023 11:10 EDTSigned by:STEPHEN Patient Care team information Care Team Personnel Name: JARRELL HOUSER DO Position: No Access Member Role: Primary Care Physician Address: Address: [place] [address]- Care Team Related Persons Name: ARY SANCHEZ Name: MILLER SANCHEZ
--- OUTSIDE RECORDS SUMMARY | 2023-05-14 12:35 | XMS_ITS | Continuity of Care Document ---
Author Name Unknown Organization [facility] Address [address] [place] [id number] Care Team Providers Care Director Of Cardiopulmonary Services Name Role Phone JARRELL HOUSER DO Primary Care Physician Encounter LTTL_SC FIN NBR [phone] Date(s): 05/08/23 - 05/08/23 [facility] [address] [place] [address] [place] Encounter Diagnosis Recurrent biliary colic(Discharge Diagnosis) - 05/08/23 Discharge Disposition: Home or Self Care Attending Physician: Mp Knott MD Admitting Physician: Mp Knott MD Allergies, Adverse Reactions, Alerts Substance Reaction Severity Status codeine Unknown Active amoxicillin Vomiting symptom Moderate Active penicillin Moderate Active Functional Status 05/08/23 Other exposure to Infectious Disease Non e Medications acetaminophen 325 mg oral capsule 325 mg = 1 cap, Oral, every 4 hr, PRN as needed for fever, 0 Refill(s) Start Date: 09/22/22 Status: Ordered Albuterol (Eqv-ProAir HFA) 90 mcg/inh inhalation aerosol 2 puffs, Inhale, every 6 hr, X 30 days, # 6.7 g, 0 Refill(s), 06/02/23 9:14:00 PM [employer], Pharmacy: [facility] #[id number], 177.8, cm, 05/03/23 20:22:00 EST, Height, 104.33, kg, 05/03/23 20:22:00 EST, Weight Dosing Start Date: 05/03/23 Stop Date: 06/02/23 Status: Ordered calcitriol 0.25 mcg oral capsule 0.25 mcg = 1 cap, Oral, BID Start Date: 06/22/22 Status: Ordered clonazePAM 1 mg oral tablet 1 mg = 1 tab, Oral, BID, 0 Refill(s) Start Date: 09/22/22 Status: Ordered cyclobenzaprine 10 mg oral tablet 10 mg = 1 tab, Oral, TID, TAKE ONE TABLET BY MOUTH THREE TIMES A DAY NEEDED FOR MUSCLE SPASM Start Date: 04/28/23 Status: Ordered gabapentin 300 mg oral capsule 300 mg = 1 cap, Oral, BID Start Date: 12/13/22 Status: Ordered lidocaine 1.8% topical film 1 patches, Topical, Daily, leave on up to 12 hours, # 30 EA, 0 Refill(s) Start Date: 05/06/23 Status: Ordered Mag-G 500 mg =, Oral, BID, 0 Refill(s) Start Date: 09/22/22 Status: Ordered methadone 10 mg/5 mL oral solution 100 mg =, Oral, every morning, 0 Refill(s) Start Date: 09/22/22 Status: Ordered NexIUM 20 mg oral delayed release capsule 20 mg = 1 cap, Oral, Daily, 0 Refill(s) Start Date: 09/22/22 Status: Ordered omeprazole 40 mg oral delayed release capsule 40 mg = 1 cap, Oral, Daily, # 30 cap, 0 Refill(s), Pharmacy: [facility] #[id number], 178, cm, 02/28/23 14:26:00 EDT, Height/Length Dosing, 104, kg, 02/28/23 14:26:00 EDT, Weight Dosing Start Date: 02/28/23 Status: Ordered Tums 500 mg oral tablet, chewable 500 mg = 1 tab, Chewed, BID, # 60 tab, 0 Refill(s) Start Date: 09/22/22 Status: Ordered Mental Status 05/08/23 Eye Opening Response Arthur Spontaneous ly Best Verbal Response Arthur Oriented [...] Laboratory List Name Date CBC w/ Diff 05/08/23 Comprehensive Metabolic Panel (CMP) 04/17 09/05 Lipase Level 05/08/23 Automated Diff 05/08/23 Most recent to oldest [Reference Range]: 1 WBC [4.8-10.8 K/mcL] 7.3 K/mcL (05/08/23 12:03 PM) RBC [4.70-6.10 Million/mcL] 3.76 Million /mcL *LOW* (05/08/23 12:03 PM) Neutro Auto [42.2-75.2 %] 61.4 % (05/08/23 12:03 PM) Lymph Auto [20.5-51.1 %] 23.7 % (05/08/23 12:03 PM) Coal Auto [1.7-9.3 %] 10.2 % *HI* (05/08/23 12:03 PM) Basophil Auto [0.0-0.8 %] 0.7 % (05/08/23 12:03 PM) BUN [8-26 mg/dL] 19 mg/dL (05/08/23 12:03 PM) Glucose Level [74-106 mg/dL] 99 mg/dL (05/08/23 12:03 PM) Potassium Level [3.5-5.1 mmol/L] 4.1 mmo l/L (05/08/23 12:03 PM) Baso Absolute [0.0-0.2 K/mcL] 0.0 K/mcL (05/08/23 12:03 PM) MCV [80.0-94.0 fL] 92.3 fL (05/08/23 12:03 PM) AST [15-41 IntlUnit/L] 25 IntlUnit/L (05/08/23 12:03 PM) ALT [17-63 IntlUnit/L] 28 IntlUnit/L (05/08/23 12:03 PM) MCHC [32.0-37.0 g/dL] 34.0 g/dL (05/08/23 12:03 PM) Osmolality [275-295 mOsm/kg] 278 mOsm/kg (05/08/23 12 PM) Sodium Level [134-143 mmol/L] 138 mmol/L (05/08/23 12: PM) Lymph Absolute [1.2-3.4 K/mcL] 1.7 K/mcL (05/08/23 PM) Hct [42.0-52.0 %] 34.7 % *LOW* (05/08/23 PM) Lipase Level [18-51 unit/L] 29 unit/L 1 (05/08/23 PM) Calcium Level [8.9-10.3 mg/dL] 10.0 mg/d L (05/08/23:03 PM) Coal Absolute [0.1-0.6 K/mcL] 0.8 K/mcL *HI* (05/08/23 PM) Albumin Level [3.5-5.0 g/dL] 3.5 g/dL (05/08/23 PM) Protein Total [6.5-8.1 g/dL] 7.1 g/dL (05/08/23 PM) MCH [27.0-31.0 pg] 31.4 pg *HI* (05/08/23 PM) Neutro Absolute [1.4-6.5 K/mcL] 4.5 K/mc L (05/08/23 PM) Bilirubin Total [0.2-1.2 mg/dL] 0.4 mg/d L (05/08/23: PM) Hgb [14.0-18.0 g/dL] 11.8 g/dL *LOW* (05/08/23 PM) Alk Phos [38-130 IntlUnit/L] 78 IntlUnit /L (05/08/23:03 PM) MPV [7.4-10.4 fL] 11.0 fL *HI* (05/08/23 PM) Platelets [130-400 K/mcL] 248 K/mcL (05/08/23:03 PM) CO2 [22-32 mmol/L] 31 mmol/L (05/08/23 PM) Eos Absolute [0.0-0.2 K/mcL] 0.3 K/mcL *HI* (05/08/23 12:03 PM) Chloride Level [98-111 mmol/L] 100 mmol/ L (05/08/23 12:03 PM) RDW-CV [11.5-14.5 %] 12.3 % (05/08/23 12:03 PM) A/G Ratio [1.0-2.5 g/dL] 1.0 g/dL (05/08/23 12:03 PM) BUN/Creat Ratio [8.0-20.0] 11.5 (05/08/23 12:03 PM) Globulin [2.3-3.5 g/dL] 3.6 g/dL *HI* (05/08/23 12: PM) Imm Gran Absolute [0.00-0.02 K/mcL] 0.02 K/mcL (05/08/23 12:03 PM) Imm Gran Auto [0.0-0.5 %] 0.3 % (05/08/23 12:03 PM) Creatinine Level [0.61-1.24 mg/dL] 1.65 mg/dL *HI* (05/08/23 12:03 PM) Anion Gap [3.0-12.0] 7.0 (05/08/23 12:03 PM) Eos, Auto [0.00-3.00 %] 3.70 % *HI* (05/08/23 12:03 PM) eGFR CKD-EPI [>=60 mL/min/1.73 m2] 57 mL /min/1.73 m2 *LOW* (05/08/23 12:03 PM) 1Interpretive Data: A-rwalyi-k-benzoquinone imine (meabolite of Acetaminophen) will generate erroneously low lipase results in samples for patients that have taken toxic doses of acetaminophen. Vital Signs Most recent to oldest [Reference Range]: 1 2 Temperature Temporal Artery [36-38 Deg C ] 36.2 Deg C (05/08/23 10:58 AM) Peripheral Pulse Rate [60-100 bpm] 91 bp m (05/08/23 10:58 AM) Respiratory Rate [12-24 br/min] 16 br/mi n (05/08/23 10:58 AM) Blood Pressure [90-140/60-90 mmHg] 128/8 8mmHg (05/08/23 10:58 AM) Mean Arterial Pressure, Cuff [70-110 mmHg] 101 mmHg (05/08/23 10:58 AM) Weight 105.00 kg (05/08/23 10:58 AM) Weight Dosing 105.00 kg (05/08/23 11:21 AM) Height 178.000 cm (05/08/23 11:21 AM) 178.000 cm (05/08/23 10:58 AM) Body Mass Index 33.000 kg/m2 (05/08/23 10:58 AM) Social History Social History Type Response Tobacco Never tobacco user T obacco Use:. Sex Hospital Discharge Instructions Patient Education 05/08/2023 11:46:55 Biliary Colic, Adult Biliary Colic, Adult Biliary [...] for a while. General instructions ??? Take dbif-fav-gyqtdse and prescription medicines only as told by [...] provider. Document Revised: 06/13/2020 Document Reviewed: 04/04/2020 [employer] Patient Education ?? 2022 [employer]. Physician Emergency department Note * Mp Knott MD: PERFORM Event Display: ED Note Physician Authored Date: [id number] DESIRE SANCHEZ :1995 Age:27 years Sex:Male Visit Date:05/08/2023 Primary Care Physician: JARRELL HOUSER DO Basic Information Time Seen: Mp Knott MD / 05/08/2023 11:09 Chief Complaint Pt C/O gallbladder attack since 5:30 last night. Ate a turkey sandwich at 5:00 PM and had a coffee this AM. Has had green, runny stool the last couple of days. Surgery scheduled 06/05. +Nausea, vomited a few times last night. Pain in shoulder. History Of Present Illness: 27-year-old man??past history of??substance abuse, now on Suboxone,??chronic recurrent abdominal pain with known??large amount of gallstones, frequent ED visitor??complaining of??right upper quadrantand upper abdominal pain since 530 this morning.?? Denies vomiting, denies fever.?? Pain more persistent than usual concerned.?? Patient had COVID exposure a few months ago and??had??surgery scheduled but got postponed??due to his 7-week??required pause??from??COVID ASA recommendations from 2019; apparently our hospital is changing his protocol and??patients were asymptomatic we will not have to wait this long. ??Currently he is??surgery is scheduled??in 1 month's time, June 05. Review of Systems: Review of Systems: Constitutional: [No fevers] Eye: [No acute visual complaints, no eye discharge] ENT: [No ear pain, nasal congestion, sore throat] Respiratory: [No shortness of breath, no cough] Cardiovascular: [No Chest pain] Gastrointestinal: [Abdominal pain; feels nauseated slightly]??no vomiting, no bleeding no melena Genitourinary: [No dysuria; no hematuria] Musculoskeletal: [No acute back pain, neck pain, joint pain,] Integumentary: [No rashes] Neurologic: [No focal complaints.??No LOC] ?? Physical Exam: General: [Alert, well nourished, no acute distress].?Afebrile, obese, not tachycardic Eye: [PERRL, EOMI, normal conjunctiva]. HENT: [Normocephalic, normal hearing, moist oral mucosa, no scleral icterus, no nasal discharge].?? Neck: [Ranging neck, normal inspection].?? Lungs: [Clear, non-labored respiration, no tachypnea].?? Heart: [Normal rate, regular rhythm, no murmurs]. Abdomen: [Soft, non-tender, non-distended].?Minimal discomfort right upper quadrant with palpation Musculoskeletal: [Normal range of motion and strength, no tenderness or swelling]. Skin: [Skin is warm, no rashes]. Neurologic: [Awake, alert and oriented X4, normal tone, moving all extremities with good strength].[Ambulation intact]. Psychiatric: [Cooperative, appropriate mood and affect]. Physical Exam Vitals & Measurements T:??36.2?C ??(Temporal Artery)?? HR:??91??(Peripheral)?? RR:??16?? BP:??128/88?? SpO2:??97%?? HT:??178.000??cm?? WT:??105.00??kg?? BMI:??33.000?? O2 Therapy:??Room air?? Procedure No Qualifying Data Assessment/Plan 1.??Recurrent biliary colic??K80.50 Orders: Discharge Patient, 05/08/23 12:39:00 EST Labs checked and??unremarkable; specifically normal white count,??no LFT abnormalities, normal lipase.?? I spoke to anesthesia who is aware that her COVID policy regarding??elective surgery is changing; I instructed patient to call back Friday??to the surgery clinic to see if he can move up his outp atient??surgical procedure.?? I did discuss with him possibly admitting him overnight and doing thesurgery tomorrow however patient wants to go home and celebrate Thanksgiving.?? He has no??indication for emergent hospitalization.?? Okay for discharge with instructions to return should he develop fevers, or??severe pain, recurrent vomiting etc. Patient Education Biliary Colic, Adult Medication Reconciliation Unchanged acetaminophen (acetaminophen 325 mg oral capsule)1 Capsules Oral (given by mouth) every 4 hours as needed as needed for fever. ?? albuterol (Albuterol (Eqv-ProAir HFA) 90 mcg/inh inhalation aerosol)2 Puffs Inhale (breathe in) every 6 hours for 30 Days. Refills: 0. ?? calcitriol (calcitriol 0.25 mcg oral capsule)1 Capsules Oral (given by mouth) 2 times a day. ?? calcium carbonate (Tums 500 mg oral tablet, chewable)1 tab Chewed 2 times a day. ?? clonazePAM (clonazePAM 1 mg oral tablet)1 tab Oral (given by mouth) 2 times a day. ?? cyclobenzaprine (cyclobenzaprine 10 mg oral tablet)1 tab Oral (given by mouth) 3 times a day. TAKE ONE TABLET BY MOUTH THREE TIMES A DAY NEEDED FOR MUSCLE SPASM. ?? esomeprazole (NexIUM 20 mg oral delayed release capsule)1 Capsules Oral (given by mouth) every day. ?? gabapentin (gabapentin 300 mg oral capsule)1 Capsules Oral (given by mouth) 2 times a day. ?? lidocaine topical (lidocaine 1.8% topical film)1 patch(es) Topical (on the skin) every day. leave on up to 12 hours. ?? magnesium gluconate (Mag-G)500 Milligrams Oral (given by mouth) 2 times a day. ?? methadone (methadone 10 mg/5 mL oral solution)100 Milligrams Oral (given by mouth) every morning. [...] abuse Procedure/Surgical History ???Parathyroid Medication Administration Given acetaminophen, 1000 mg, Oral ketorolac, 30 mg, IM Allergies amoxicillin??(Vomiting symptom) penicillin codeine Social History [...] and Differential?? LATEST RESULTS?? HISTORICAL RESULTS?? WBC?? 05/08/23 12:03?? 7.3?? 04/25/23?? 6.8?? RBC?? 05/08/23 12:03?? 3.76 ??Low?? 04/25/23?? 3.81 ??Low?? Hgb?? 05/08/23 12:03?? 11.8 ??Low?? 04/25/23?? 11.9 ??Low?? Hct?? 05/08/23 12:03?? 34.7 ??Low?? 04/25/23?? 35.9 ??Low?? MCV?? 05/08/23 12:03?? 92.3?? 04/25/23?? 94.2 ??High?? MCH?? 05/08/23 12:03?? 31.4 ??High?? 04/25/23?? 31.2 ??High?? MCHC?? 05/08/23 12:03?? 34.0?? 04/25/23?? 33.1?? RDW-CV?? 05/08/23 12:03?? 12.3?? 04/25/23?? 12.5?? Platelets?? 05/08/23 12:03?? 248?? 04/25/23?? 249?? MPV?? 05/08/23 12:03?? 11.0 ??High?? 04/25/23?? 11.1 ??High?? Neutro Auto?? 05/08/23 12:03?? 61.4?? 04/25/23?? 54.9?? Lymph Auto?? 05/08/23 12:03?? 23.7?? 04/25/23?? 27.3?? Coal Auto?? 05/08/23 12:03?? 10.2 ??High?? 04/25/23?? 11.3 ??High?? Eos, Auto?? 05/08/23 12:03?? 3.70 ??High?? 04/25/23?? 5.60 ??High?? Basophil Auto?? 05/08/23 12:03?? 0.7?? 04/25/23?? 0.6?? Imm Gran Auto?? 05/08/23 12:03?? 0.3?? 04/25/23?? 0.3?? Neutro Absolute?? 05/08/23 12:03?? 4.5?? 04/25/23?? 3.8?? Lymph Absolute?? 05/08/23 12:03?? 1.7?? 04/25/23?? 1.9?? Coal Absolute?? 05/08/23 12:03?? 0.8 ??High?? 04/25/23?? 0.8 ??High?? Eos Absolute?? 05/08/23 12:03?? 0.3 ??High?? 04/25/23?? 0.4 ??High?? Baso Absolute?? 05/08/23 12:03?? 0.0?? 04/25/23?? 0.0?? Imm Gran Absolute?? 05/08/23 12:03?? 0.02?? 04/25/23?? 0.02? Routine Chemistry?? LATEST RESULTS?? HISTORICAL RESULTS?? Sodium Level?? 05/08/23 12:03?? 138?? 04/25/23?? 137?? Potassium Level?? 05/08/23 12:03?? 4.1?? 04/25/23?? 3.9?? Chloride Level?? 05/08/23 12:03?? 100?? 04/25/23?? 98?? CO2?? 05/08/23 12:03?? 31?? 04/25/23?? 31?? Alk Phos?? 05/08/23 12:03?? 78?? 04/25/23?? 87?? AST?? 05/08/23 12:03?? 25?? 04/25/23?? 24?? ALT?? 05/08/23 12:03?? 28?? 04/25/23?? 38?? BUN?? 05/08/23 12:03?? 19?? 04/25/23?? 14?? Glucose Level?? 05/08/23 12:03?? 99?? 04/25/23?? 93?? Creatinine Level?? 05/08/23 12:03?? 1.65 ??High?? 04/25/23?? 1.44 ??High?? BUN/Creat Ratio?? 05/08/23 12:03?? 11.5?? 04/25/23?? 9.7?? eGFR CKD-EPI?? 05/08/23 12:03?? 57 ??Low?? 04/25/23?? 67?? Calcium Level?? 05/08/23 12:03?? 10.0?? 04/25/23?? 8.8 ??Low?? Protein Total?? 05/08/23 12:03?? 7.1?? 04/25/23?? 7.6?? Albumin Level?? 05/08/23 12:03?? 3.5?? 04/25/23?? 3.7?? Globulin?? 05/08/23 12:03?? 3.6 ??High?? 04/25/23?? 3.9 ??High?? A/G Ratio?? 05/08/23 12:03?? 1.0?? 04/25/23?? 0.9 ??Low?? Bilirubin Total?? 05/08/23 12:03?? 0.4?? 04/25/23?? 0.5?? Anion Gap?? 05/08/23 12:03?? 7.0?? 04/25/23?? 8.0?? Lipase Level?? 05/08/23 12:03?? 29?? 04/17/23?? 27?? Osmolality?? 05/08/23 12:03?? 278?? 04/25/23?? 274 ??Low? Electronically Signed on 05/08/23 07:33 PM Mp Knott MD Emergency department Discharge instructions * Mp Knott MD: PERFORM Event Display: ED Discharge Information Authored Date: [id number] DESIRE SANCHEZ :1995 Age:27 years Sex:Male Visit Date:05/08/2023 Primary Care Physician: JARRELL HOUSER DO Discharge Instructions We would like to thank you for allowing us to assist you with your healthcare needs. The following includes patient education materials and information regarding your injury/illness. Diagnosis from Today's Visit Recurrent biliary colic Discharge Vitals Temperature??(Temporal Artery) 97.2 ??F (36.2 ??C) Heart Rate??(Peripheral) 91 Respiratory Rate?? 16 Blood Pressure?? 128/88?? Height?? 70.08 in (178.000 cm) Weight?? 231.52 lb (105.00 kg) BMI?? 33.000 Allergies amoxicillin??(Vomiting symptom) penicillin codeine What to Do Next Instructions from Your Care Team Take Tylenol??and/or Motrin for discomfort as necessary.?? Return emergency department if you develop fevers and vomiting, severe persistent pain.?? Our hospital is revising??it is COVID??infection policies;??I spoke to the anesthesia provider on-call and I know??there is an effort??to shorten??thedelay after COVID infection to surgery.?? Call the??surgery clinic Friday??to discuss this with them, as they may??be able to move up your surgery due to the newly implemented??policy. You were treated today on an emergency [...] needed for as needed for fever Unchanged albuterol (Albuterol (Eqv-ProAir HFA) 90 mcg/ inh inhalation aerosol) 2 Puffs Inhale (breathe in) Every 6 hours Duration: 30 Days Unchanged calcitriol (calcitriol 0.25 mcg oral capsule) 1 Capsules Oral (given by mouth) 2 times a day Unchanged calcium carbonate (Tums 500 mg oral tablet, chewable) 1 tab Chewed 2 times a day Unchanged clonazePAM (clonazePAM 1 mg oral tablet) 1 tab Oral (given by mouth) 2 times a day Unchanged cyclobenzaprine (cyclobenzaprine 10 mg oral tablet) 1 tab Oral (given by mouth) 3 times a day TAKE ONE TABLET BY MOUTH THREE TIMES A DAY NEEDED FOR MUSCLE SPASM ?? Unchanged esomeprazole (NexIUM 20 mg oral delayed release capsule) 1 Capsules Oral (given by mouth) Every day Unchanged gabapentin (gabapentin 300 mg oral capsule) 1 Capsules Oral (given by mouth) 2 times a day Unchanged lidocaine topical (lidocaine 1.8% topical film) 1 patch(es) Topical (on the skin) Every day leave on up to 12 hours ?? Unchanged magnesium gluconate (Mag-G) 500 Milligrams Oral (given by mouth) 2 times a day Unchanged methadone (methadone 10 mg/ 5 mL oral solution) 100 Milligrams Oral (given by mouth) Every morning Unchanged omeprazole (omeprazole 40 mg oral delayed release capsule) 1 Capsules Oral (given by mouth) Every day Chest pain Shortness of breath Chest pain due to GERD Education Materials Biliary Colic, Adult Biliary colic [...] for a while. General instructions ? Take ufeu-dke-txwcefh and prescription medicines only as told by [...] provider. Document Revised: 06/13/2020 Document Reviewed: 04/04/2020 [employer] Patient Education ?? 2022 [employer]. Tests Performed Medications and Immunizations Administered Given acetaminophen, 1000 mg, Oral ketorolac, 30 mg, IM Lab Test Name Test Result Date/Time WBC 7.3 K/mcL 05/08/2023 12:03 EST RBC 3.76 Million/mcL 05/08/2023 12:03 EST Hgb 11.8 g/dL 05/08/2023 12:03 EST Hct 34.7 % 05/08/2023 12:03 EST MCV 92.3 fL 05/08/2023 12:03 EST MCH 31.4 pg 05/08/2023 12:03 EST MCHC 34.0 g/dL 05/08/2023 12:03 EST RDW-CV 12.3 % 05/08/2023 12:03 EST Platelets 248 K/mcL 05/08/2023 12:03 EST MPV 11.0 fL 05/08/2023 12:03 EST Neutro Auto 61.4 % 05/08/2023 12:03 EST Lymph Auto 23.7 % 05/08/2023 12:03 EST Coal Auto 10.2 % 05/08/2023 12:03 EST Eos, Auto 3.70 % 05/08/2023 12:03 EST Basophil Auto 0.7 % 05/08/2023 12:03 EST Imm Gran Auto 0.3 % 05/08/2023 12:03 EST Neutro Absolute 4.5 K/mcL 05/08/2023 12:03 EST Lymph Absolute 1.7 K/mcL 05/08/2023 12:03 EST Coal Absolute 0.8 K/mcL 05/08/2023 12:03 EST Eos Absolute 0.3 K/mcL 05/08/2023 12:03 EST Baso Absolute 0.0 K/mcL 05/08/2023 12:03 EST Imm Gran Absolute 0.02 K/mcL 05/08/2023 12:03 EST Sodium Level 138 mmol/L 05/08/2023 12:03 EST Potassium Level 4.1 mmol/L 05/08/2023 12:03 EST Chloride Level 100 mmol/L 05/08/2023 12:03 EST CO2 31 mmol/L 05/08/2023 12:03 EST Alk Phos 78 IntlUnit/L 05/08/2023 12:03 EST AST 25 IntlUnit/L 05/08/2023 12:03 EST ALT 28 IntlUnit/L 05/08/2023 12:03 EST BUN 19 mg/dL 05/08/2023 12:03 EST Glucose Level 99 mg/dL 05/08/2023 12:03 EST Creatinine Level 1.65 mg/dL 05/08/2023 12:03 EST BUN/Creat Ratio 11.5 05/08/2023 12:03 EST eGFR CKD-EPI 57 mL/min/1.73 m2 05/08/2023 12:03 EST Calcium Level 10.0 mg/dL 05/08/2023 12:03 EST Protein Total 7.1 g/dL 05/08/2023 12:03 EST Albumin Level 3.5 g/dL 05/08/2023 12:03 EST Globulin 3.6 g/dL 05/08/2023 12:03 EST A/G Ratio 1.0 g/dL 05/08/2023 12:03 EST Bilirubin Total 0.4 mg/dL 05/08/2023 12:03 EST Anion Gap 7.0 05/08/2023 12:03 EST Lipase Level 29 unit/L 05/08/2023 12:03 EST Osmolality 278 mOsm/kg 05/08/2023 12:03 EST Patient/[employer] Signature Patient Name:DESIRE SANCHEZ DECLAN I have received this information and my questions have been answered. Patient/[employer] Name: Patient/[employer] Signature: Relationship to Patient: Witness Name/Signature: Date: Electronically Signed on: 05/08/2023 12:49 ESTSigned by:[facility] Patient Care team information Care Team Personnel Name: JARRELL HOUSER DO Position: No Access Member Role: Primary Care Physician Address: Address: [address] [id number] Name: Pawel Medrano Position: Nurse Member Role: ED Nurse Name: Mp Knott MD Position: Physician Member Role: ED Physician Address: Address: [facility] [address] [place], [place] [address] Care Team Related Persons Name: ARY SANCHEZ Name: MILLER SANCHEZ
--- OUTSIDE RECORDS SUMMARY | 2023-05-14 12:35 | XMS_ITS | Continuity of Care Document ---
Author Name Unknown Organization [facility] Address [address] [place] [id number] [address] Team Providers [address] [employer] Repairer Name Role Phone JARRELL HOUSER DO Primary Care Physician Encounter [id number] NBR [id number] Date(s): 04/01/23 - 04/01/23 [facility] [address] [place] [address]- Encounter Diagnosis Constipation(Discharge Diagnosis) - 04/01/23 Discharge Disposition: Home or Self Care Attending Physician: Uday Díaz MD Admitting Physician: Uday Díaz MD Allergies, Adverse Reactions, Alerts Substance Reaction Severity Status codeine Unknown Active amoxicillin Vomiting symptom Moderate Active penicillin Moderate Active Assessment and Plan Future Appointments Functional Status 04/01/23 Recent Travel History No recent travel Medications acetaminophen 325 mg oral capsule 325 [...] Daily, # 30 cap, 0 Refill(s), Pharmacy: [id number], 178, cm, 02/28/23 14:26:00 EDT, Height/Length Dosing, 104, kg, 02/28/23 14:26:00 EDT, Weight Dosing Start Date: 02/28/23 Status: Ordered Tums 500 mg oral tablet, chewable 500 mg = 1 tab, Chewed, BID, # 60 tab, 0 Refill(s) Start Date: 09/22/22 Status: Ordered Mental Status 04/01/23 Eye Opening Response Arthur Spontaneous ly Best Verbal Response Cecil Oriented Best Motor Response Arthur Obeys comman ds Cecil Coma Score 15 Problem List Condition Confirmation [...] Laboratory List Name Date CBC w/ Diff 04/01/23 Comprehensive Metabolic Panel (CMP) 03/16 01/05 Lipase Level 04/01/23 Troponin-I High Sensitivity 04/01/23 Automated Diff 04/01/23 Most recent to oldest [Reference Range]: 1 WBC [4.8-10.8 K/mcL] 6.3 K/mcL (04/01/23 9:35 AM) RBC [4.20-6.10 Million/mcL] 3.74 Million /mcL *LOW* (04/01/23 9:35 AM) Neutro Auto [42.2-75.2 %] 56.5 % (04/01/23 9:35 AM) Lymph Auto [20.5-51.1 %] 27.0 % (04/01/23 9:35 AM) [place] Auto [1.7-9.3 %] 12.2 % *HI* (04/01/23 9:35 AM) Basophil Auto [0.0-0.8 %] 0.3 % (04/01/23 9:35 AM) BUN [8-26 mg/dL] 22 mg/dL (04/01/23 9:35 AM) Glucose Level [74-106 mg/dL] 117 mg/dL *HI* (04/01/23 9:35 AM) Potassium Level [3.5-5.1 mmol/L] 3.8 mmo l/L (04/01/23 9:35 AM) Baso Absolute [0.0-0.2 K/mcL] 0.0 K/mcL (04/01/23 9:35 AM) MCV [80.0-94.0 fL] 91.7 fL (04/01/23 9:35 AM) AST [15-41 IntlUnit/L] 23 IntlUnit/L (04/01/23 9:35 AM) ALT [17-63 IntlUnit/L] 22 IntlUnit/L (04/01/23 9:35 AM) MCHC [32.0-36.0 g/dL] 34.1 g/dL (04/01/23 9:35 AM) Osmolality [275-295 mOsm/kg] 280 mOsm/kg (04/01/23 9:35 AM) Sodium Level [134-143 mmol/L] 138 mmol/L (04/01/23 9:35 AM) Lymph Absolute [1.2-3.4 K/mcL] 1.7 K/mcL (04/01/23 9:35 AM) Hct [42.0-52.0 %] 34.3 % *LOW* (04/01/23 9:35 AM) Lipase Level [18-51 unit/L] 27 unit/L 1 (04/01/23 9:35 AM) Calcium Level [8.9-10.3 mg/dL] 9.2 mg/dL (04/01/23 9:35 AM) [place] Absolute [0.1-0.6 K/mcL] 0.8 K/mcL *HI* (04/01/23 9:35 AM) Albumin Level [3.5-5.0 g/dL] 3.4 g/dL *LOW* (04/01/23 9:35 AM) Protein Total [6.5-8.1 g/dL] 7.2 g/dL (04/01/23 9:35 AM) MCH [27.0-31.0 pg] 31.3 pg *HI* (04/01/23 9:35 AM) Neutro Absolute [1.4-6.5 K/mcL] 3.6 K/mc L (04/01/23 9:35 AM) Bilirubin Total [0.2-1.2 mg/dL] 0.5 mg/d L (04/01/23 9:35 AM) Hgb [14.0-18.0 g/dL] 11.7 g/dL *LOW* (04/01/23 9:35 AM) Alk Phos [38-130 IntlUnit/L] 74 IntlUnit /L (04/01/23 9:35 AM) MPV [7.4-10.4 fL] 10.4 fL (04/01/23 9:35 AM) Platelets [130-400 K/mcL] 293 K/mcL (04/01/23 9:35 AM) CO2 [22-32 mmol/L] 28 mmol/L (04/01/23 9:35 AM) Eos Absolute [0.0-0.2 K/mcL] 0.2 K/mcL (04/01/23 9:35 AM) Chloride Level [98-111 mmol/L] 100 mmol/ L (04/01/23 9:35 AM) RDW-CV [11.5-14.5 %] 11.7 % (04/01/23 9:35 AM) A/G Ratio [1.0-2.5 g/dL] 0.9 g/dL *LOW* (04/01/23 9:35 AM) BUN/Creat Ratio [8.0-20.0] 16.4 (04/01/23 9:35 AM) Globulin [2.3-3.5 g/dL] 3.8 g/dL *HI* (04/01/23 9:35 AM) Imm Gran Absolute [0.00-0.02 K/mcL] 0.03 K/mcL *HI* (04/01/23 9:35 AM) Imm Gran Auto [0.0-0.5 %] 0.5 % (04/01/23 9:35 AM) Slide Review Not Indicated (04/01/23 9:35 AM) Creatinine Level [0.61-1.24 mg/dL] 1.34 mg/dL *HI* (04/01/23 9:35 AM) Troponin-I HS [<=20 ng/L] 2 ng/L 2 (04/01/23 9:35 AM) Anion Gap [3.0-12.0] 10.0 (04/01/23 9:35 AM) Eos, Auto [0.00-3.00 %] 3.50 % *HI* (04/01/23 9:35 AM) eGFR CKD-EPI [>=60 mL/min/1.73 m2] 74 mL /min/1.73 m2 (04/01/23 9:35 AM) 1Interpretive Data: P-eotqfd-l-benzoquinone imine (meabolite of Acetaminophen) will generate erroneously low lipase results in samples for patients that have taken toxic doses of acetaminophen. 2Interpretive Data: The [facility] ACCESS high-sensitivity Troponin I [...] Exam Date Time Procedure Performing Provider Status 04/01/23 9:53 AM XR Abdomen 2 Views Samuel Aly (Verified) Notes: (XR Abdomen 2 Views) Reason For Exam: pain XR Abdomen 2 Views EXAM DESCRIPTION: XR Abdomen 2 Views 04/01/2023 INDICATION: PAIN COMPARISON: 02/13/2023 IMPRESSION: Normal bowel gas pattern. No bowel dilatation to suggest obstruction or ileus. Moderate fecal debris throughout the colon. No evidence of free intraperitoneal air. Stable calcification in the right aspect of the pelvis most consistent with phlebolith. The visualized lung bases are clear. JOB #: [id number] Final Signed by: John Burciaga MD Signed (Electronic Signature): 04/01/2023 10:20 am Vital Signs Most recent to oldest [Reference Range]: 1 2 3 Temperature Temporal Artery [36-38 Deg C] 36.6 Deg C (04/01/23 8:58 AM) Peripheral Pulse Rate [60-100 bpm] 59 bpm *LOW* (04/01/23 10:30 AM) 69 bpm (04/01/23 10:00 AM) 77 bpm (04/01/23 9:30 AM) Respiratory Rate [12-24 br/min] 16 br/min (04/01/23 8:58 AM) Blood Pressure [90-140/60-90 mmHg] 112/68mmHg (04/01/23 10:00 AM) 138/84mmHg (04/01/23 8:58 AM) Mean Arterial Pressure, Cuff [65-140 mmHg] 83 mmHg (04/01/23 10:00 AM) 102 mmHg (04/01/23 8:58 AM) Mean Arterial Pressure Cuff 81 mmHg (04/01/23 10:00 AM) Weight Dosing 105.00 kg (04/01/23 9:15 AM) Weight Estimated 105.00 kg (04/01/23 8:58 AM) Height/Length Dosing 178.000 cm (04/01/23 9:15 AM) Height/Length Estimated 178.000 cm (04/01/23 8:58 AM) Social History Social History Type Response Tobacco Never tobacco user T obacco Use:. Sex Hospital Discharge Instructions Patient Education 04/01/2023 09:28:46 Constipation, Adult Constipation, Adult Constipation is when [...] as fried or sweet foods. These include cypriot fries, hamburgers, cookies, candies, and soda. ??? Drink enough fluid to keep your urine pale yellow. General instructions ??? Exercise regularly or as told by your health care provider. Try to do 150 minutes of moderate exercise each week. ??? Use the bathroom when you have the urge to go. Do not hold it in. ??? Take csro-khu-kwslboz and prescription medicines only as told by [...] keep your urine pale yellow. ??? Take rvxg-fsh-gypviao and prescription medicines only as told by your health care provider. This includes any fiber supplements. This information is not intended to replace advice given to you by your health care provider. Make sure you discuss any questions you have with your health care provider. Document Revised: 04/19/2020 Document Reviewed: 04/19/2020 School Admissions Patient Education ?? 2022 [employer]. Emergency department Discharge instructions * Berto Davis MD: PERFORM Event Display: ED Discharge Information Authored Date: [id number] DESIRE SANCHEZ :1995 Age:27 years Sex:Male Visit Date:04/01/2023 Primary Care Physician: JARRELL HOUSER DO Discharge Instructions We would like to thank you for allowing us to assist you with your healthcare needs. The following includes patient education materials and information regarding your injury/illness. Diagnosis from Today's Visit Constipation Discharge Vitals Temperature??(Temporal Artery) 97.9 ??F (36.6 ??C) Heart Rate??(Peripheral) 95 Respiratory Rate?? 16 Blood Pressure?? 138/84?? Height?? 70.08 in (178.000 cm) Weight??(Estimated) 231.52 lb (105.00 kg) Allergies amoxicillin??(Vomiting symptom) penicillin codeine What to Do Next Instructions from Your Care Team Use magnesium citrate gcwd-xeg-ghaveqb as directed for constipation. ??Follow-up with regular doctor or return to ED for worsening symptoms Upcoming Scheduled Appointments 2022 9:30 AM EDT ?? Where: [facility] [...] as fried or sweet foods. These include cypriot fries, hamburgers, cookies, candies, and soda. ? Drink enough fluid to keep your urine pale yellow. General instructions ? Exercise regularly or as told by your health care provider. Try to do 150 minutes of moderate exercise each week. ? Use the bathroom when you have the urge to go. Do not hold it in. ? Take xvzv-xop-hammfml and prescription medicines only as told by [...] keep your urine pale yellow. ? Take lffr-nbu-uosybfc and prescription medicines only as told by your health care provider. This includes any fiber supplements. This information is not intended to replace advice given to you by your health care provider. Make sure you discuss any questions you have with your health care provider. Document Revised: 04/19/2020 Document Reviewed: 04/19/2020 School Admissions Patient Education ?? 2022 [employer] Tests Performed Radiology XR Abdomen 2 Views 04/01/2023 10:22 EDT Medications and Immunizations Administered Given Al hydroxide/Mg hydroxide/simethicone, 30 mL, Oral Atropine/hyoscyamine/PB/scopol 5 ml Syl [LTTL], 5 mL, Oral Lidocaine Viscous, 15 mL, Oral Lab Test Name Test Result Date/Time WBC 6.3 K/mcL 04/01/2023 09:35 EDT RBC 3.74 Million/mcL 04/01/2023 09:35 EDT Hgb 11.7 g/dL 04/01/2023 09:35 EDT Hct 34.3 % 04/01/2023 09:35 EDT MCV 91.7 fL 04/01/2023 09:35 EDT MCH 31.3 pg 04/01/2023 09:35 EDT MCHC 34.1 g/dL 04/01/2023 09:35 EDT RDW-CV 11.7 % 04/01/2023 09:35 EDT Platelets 293 K/mcL 04/01/2023 09:35 EDT MPV 10.4 fL 04/01/2023 09:35 EDT Neutro Auto 56.5 % 04/01/2023 09:35 EDT Lymph Auto 27.0 % 04/01/2023 09:35 EDT [place] Auto 12.2 % 04/01/2023 09:35 EDT Eos, Auto 3.50 % 04/01/2023 09:35 EDT Basophil Auto 0.3 % 04/01/2023 09:35 EDT Imm Gran Auto 0.5 % 04/01/2023 09:35 EDT Neutro Absolute 3.6 K/mcL 04/01/2023 09:35 EDT Lymph Absolute 1.7 K/mcL 04/01/2023 09:35 EDT [place] Absolute 0.8 K/mcL 04/01/2023 09:35 EDT Eos Absolute 0.2 K/mcL 04/01/2023 09:35 EDT Baso Absolute 0.0 K/mcL 04/01/2023 09:35 EDT Imm Gran Absolute 0.03 K/mcL 04/01/2023 09:35 EDT Slide Review Not Indicated 04/01/2023 09:35 EDT Sodium Level 138 mmol/L 04/01/2023 09:35 EDT Potassium Level 3.8 mmol/L 04/01/2023 09:35 EDT Chloride Level 100 mmol/L 04/01/2023 09:35 EDT CO2 28 mmol/L 04/01/2023 09:35 EDT Alk Phos 74 IntlUnit/L 04/01/2023 09:35 EDT AST 23 IntlUnit/L 04/01/2023 09:35 EDT ALT 22 IntlUnit/L 04/01/2023 09:35 EDT BUN 22 mg/dL 04/01/2023 09:35 EDT Glucose Level 117 mg/dL 04/01/2023 09:35 EDT Creatinine Level 1.34 mg/dL 04/01/2023 09:35 EDT BUN/Creat Ratio 16.4 04/01/2023 09:35 EDT eGFR CKD-EPI 74 mL/min/1.73 m2 04/01/2023 09:35 EDT Calcium Level 9.2 mg/dL 04/01/2023 09:35 EDT Protein Total 7.2 g/dL 04/01/2023 09:35 EDT Albumin Level 3.4 g/dL 04/01/2023 09:35 EDT Globulin 3.8 g/dL 04/01/2023 09:35 EDT A/G Ratio 0.9 g/dL 04/01/2023 09:35 EDT Bilirubin Total 0.5 mg/dL 04/01/2023 09:35 EDT Anion Gap 10.0 04/01/2023 09:35 EDT Lipase Level 27 unit/L 04/01/2023 09:35 EDT Osmolality 280 mOsm/kg 04/01/2023 09:35 EDT Troponin-I HS 2 ng/L 04/01/2023 09:35 EDT Patient/International Account Manager Signature Patient Name:DESIRE SANCHEZ I have received this information and my questions have been answered. Patient/International Account Manager Name: Patient/International Account Manager Signature: Relationship to Patient: Witness Name/Signature: Date: Electronically Signed on: 04/01/2023 10:30 EDTSigned by:EDGAR Patient Care team information Care Team Personnel Name: JARRELL HOUSER DO Position: No Access Member Role: Primary Care Physician Address: Address: [address] [address] Name: Berto Davis MD Position: Physician Member Role: ED Physician Address: Address: [address] [place] [phone] Name: Cami Melgar Position: Nurse Member Role: ED Nurse Care Team Related Persons Name: ARY SANCHEZ Name: MILLER SANCHEZ
--- OUTSIDE RECORDS SUMMARY | 2023-05-14 12:35 | XMS_ITS | Continuity of Care Document ---
Author Name Unknown Organization [facility] Address [address] [place] [address] Care Team Providers Care Wire Lather Name Role Phone JARRELL HOUSER DO Primary Care Physician Encounter [id number] NBR [phone] Date(s): 03/01/23 - 03/01/23 [facility] [address] [place] [address]- Encounter Diagnosis Abdominal pain in male(Discharge Diagnosis) - 03/01/23 Discharge Disposition: Home or Self Care Attending Physician: Mariann Mckeon MD Admitting Physician: Mariann Mckeon MD Allergies, Adverse Reactions, Alerts Substance Reaction Severity Status codeine Unknown Active amoxicillin Vomiting symptom Moderate Active penicillin Moderate Active Assessment and Plan Future Appointments Functional Status 03/01/23 Recent Travel History No recent travel Medications [...] # 30 cap, 0 Refill(s), Pharmacy: [id number], 178, cm, 02/28/23 14:26:00 EDT, Height/Length Dosing, 104, kg, 02/28/23 14:26:00 EDT, Weight Dosing Start Date: 02/28/23 Status: Ordered Tums 500 mg oral tablet, chewable 500 mg = 1 tab, Chewed, BID, # 60 tab, 0 Refill(s) Start Date: 09/22/22 Status: Ordered Mental Status 03/01/23 Eye Opening Response Arthur Spontaneous ly Best Verbal Response Arthur Oriented Best Motor Response [place] Obeys comman ds [place] Coma Score 15 Problem List Condition Confirmation [...] Laboratory List Name Date CBC w/ Diff 03/01/23 Comprehensive Metabolic Panel (CMP) 03/01 Lipase Level 03/01/23 Automated Diff 03/01/23 Most recent to oldest [Reference Range]: 1 WBC [4.8-10.8 K/mcL] 7.1 K/mcL (03/01/23 7:18 AM) RBC [4.20-6.10 Million/mcL] 3.90 Million /mcL *LOW* (03/01/23 7:18 AM) Neutro Auto [42.2-75.2 %] 64.8 % (03/01/23 7:18 AM) Lymph Auto [20.5-51.1 %] 17.9 % *LOW* (03/01/23 7:18 AM) Chicot Auto [1.7-9.3 %] 14.8 % *HI* (03/01/23 7:18 AM) Basophil Auto [0.0-0.8 %] 0.6 % (03/01/23 7:18 AM) BUN [8-26 mg/dL] 13 mg/dL (03/01/23 7:18 AM) Glucose Level [74-106 mg/dL] 108 mg/dL *HI* (03/01/23 7:18 AM) Potassium Level [3.5-5.1 mmol/L] 3.6 mmo l/L (03/01/23 7:18 AM) Baso Absolute [0.0-0.2 K/mcL] 0.0 K/mcL (03/01/23 7:18 AM) MCV [80.0-94.0 fL] 94.1 fL *HI* (03/01/23 7:18 AM) AST [15-41 IntlUnit/L] 26 IntlUnit/L (03/01/23 7:18 AM) ALT [17-63 IntlUnit/L] 24 IntlUnit/L (03/01/23 7:18 AM) MCHC [32.0-36.0 g/dL] 33.5 g/dL (03/01/23 7:18 AM) Osmolality [275-295 mOsm/kg] 273 mOsm/kg *LOW* (03/01/23 7:18 AM) Sodium Level [134-143 mmol/L] 136 mmol/L (03/01/23 7:18 AM) Lymph Absolute [1.2-3.4 K/mcL] 1.3 K/mcL (03/01/23 7:18 AM) Hct [42.0-52.0 %] 36.7 % *LOW* (03/01/23 7:18 AM) Lipase Level [18-51 unit/L] 26 unit/L 1 (03/01/23 7:18 AM) Calcium Level [8.9-10.3 mg/dL] 7.6 mg/dL *LOW* (03/01/23 7:18 AM) Chicot Absolute [0.1-0.6 K/mcL] 1.0 K/mcL *HI* (03/01/23 7:18 AM) Albumin Level [3.5-5.0 g/dL] 3.5 g/dL (03/01/23 7:18 AM) Protein Total [6.5-8.1 g/dL] 7.4 g/dL (03/01/23 7:18 AM) MCH [27.0-31.0 pg] 31.5 pg *HI* (03/01/23 7:18 AM) Neutro Absolute [1.4-6.5 K/mcL] 4.6 K/mc L (03/01/23 7:18 AM) Bilirubin Total [0.2-1.2 mg/dL] 0.3 mg/d L (03/01/23 7:18 AM) Hgb [14.0-18.0 g/dL] 12.3 g/dL *LOW* (03/01/23 7:18 AM) Alk Phos [38-130 IntlUnit/L] 85 IntlUnit /L (03/01/23 7:18 AM) MPV [7.4-10.4 fL] 10.8 fL *HI* (03/01/23 7:18 AM) Platelets [130-400 K/mcL] 237 K/mcL (03/01/23 7:18 AM) CO2 [22-32 mmol/L] 29 mmol/L (03/01/23 7:18 AM) Eos Absolute [0.0-0.2 K/mcL] 0.1 K/mcL (03/01/23 7:18 AM) Chloride Level [98-111 mmol/L] 98 mmol/L (03/01/23 7:18 AM) RDW-CV [11.5-14.5 %] 12.4 % (03/01/23 7:18 AM) A/G Ratio [1.0-2.5 g/dL] 0.9 g/dL *LOW* (03/01/23 7:18 AM) BUN/Creat Ratio [8.0-20.0] 11.8 (03/01/23 7:18 AM) Globulin [2.3-3.5 g/dL] 3.9 g/dL *HI* (03/01/23 7:18 AM) Imm Gran Absolute 0.01 *NA* (03/01/23 7:18 AM) Imm Gran Auto [0.0-0.5 %] 0.1 % (03/01/23 7:18 AM) NRBC Auto 0 *NA* (03/01/23 7:18 AM) NRBC Absolute 0 *NA* (03/01/23 7:18 AM) Creatinine Level [0.61-1.24 mg/dL] 1.10 mg/dL (03/01/23 7:18 AM) Anion Gap [3.0-12.0] 9.0 (03/01/23 7:18 AM) Eos, Auto [0.00-3.00 %] 1.80 % (03/01/23 7:18 AM) eGFR CKD-EPI [>=60 mL/min/1.73 m2] 93 mL /min/1.73 m2 (03/01/23 7:18 AM) 1Interpretive Data: Z-tfmlhm-t-benzoquinone imine (meabolite of Acetaminophen) will generate erroneously low lipase results in samples for patients that have taken toxic doses of acetaminophen. Radiology Reports * Exam Date Time Procedure Performing Provider Status 03/01/23 7:[address] Abdomen and Pelvis w/ Contrast April Moise; Auth (Verified) Notes: (CT Abdomen and Pelvis w/ Contrast) Reason For Exam: left sided abd pain CT Abdomen and Pelvis w/ Contrast PROCEDURE INFORMATION: Exam: CT Abdomen And Pelvis With Contrast Exam date and time: 03/01/2023 7:34 AM Age: 27 years old Clinical indication: Abdominal pain; Localized; Left upper quadrant (luq); Additional info: Left sided abd pain TECHNIQUE: Imaging protocol: Computed tomography of the abdomen and pelvis with contrast. Radiation optimization: All CT scans at this facility use at least one of these dose optimization techniques: automated exposure control; mA and/or kV adjustment per patient size (includes targeted exams where dose is matched to clinical indication); or iterative reconstruction. Contrast material: ISOVUE; Contrast volume: 100 ml; Contrast route: INTRAVENOUS (IV); REPORTING DATA: Count of CT and Cardiac NM exams in prior 12 months: This patient has received 3 known CTs and 0 known cardiac nuclear medicine studies in the 12 months prior to the current study. COMPARISON: CT ABD/PELVIS W CONTRAST 09/08/2022 12:51 PM FINDINGS: Lungs: No acute airspace or pleural disease. Liver: Fatty infiltration of the liver. Gallbladder and bile ducts: Cholelithiasis. Pancreas: No pancreatic mass or ductal dilatation. Spleen: Enlarged spleen measuring 14.0 cm in length. Adrenal glands: Unremarkable adrenals. Kidneys and ureters: 1.6 cm nodular hypodense lesion in the upper pole left kidney which does not fulfill CT criteria for a simple cyst. No hydronephrosis perinephric fluid. Stomach and bowel: Decompressed stomach limiting evaluation. Prominent stool in a pattern suggesting constipation. Diverticula, without pericolonic inflammation. Mild wall thickening in the nondistended rectum. Appendix: No acute appendicitis. Intraperitoneal space: No significant free fluid. Vasculature: Normal caliber of the abdominal aorta. Lymph nodes: Subcentimeter lymph nodes. Urinary bladder: Normal bladder morphology. Reproductive: Punctate prostate calcification. Scrotal calcifications. Bones/joints: Chronic compression deformities in the visualized inferior thoracic spine. Soft tissues: Infiltration of subcutaneous fat about the umbilicus. IMPRESSION: 1. Cholelithiasis. 2. 1.6 cm nodular hypodense lesion in the upper pole left kidney which does not fulfill CT criteria for a simple cyst. 3. Additional findings as described above. THIS DOCUMENT HAS BEEN ELECTRONICALLY SIGNED BY TONNY DOUGHERTY MD on 03/01/2023 08:36 AM Final Signed by: Tonny Dougherty MD Signed (Electronic Signature): 03/01/2023 8:36 am Vital Signs Most recent to oldest [Reference Range]: 1 2 3 Temperature Temporal Artery [36-38 Deg C] 37.5 Deg C (03/01/23 6:54 AM) Peripheral Pulse Rate [60-100 bpm] 75 bpm (03/01/23 8:30 AM) 94 bpm (03/01/23 8:00 AM) 80 bpm (03/01/23 7:30 AM) Respiratory Rate [12-24 br/min] 16 br/min (03/01/23 7:25 AM) 20 br/min (03/01/23 6:54 AM) Blood Pressure [90-140/60-90 mmHg] 101/76mmHg (03/01/23 8:30 AM) 97/44mmHg (03/01/23 8:00 AM) 137/70mmHg (03/01/23 6:54 AM) Mean Arterial Pressure Cuff 61 mmHg (03/01/23 8:00 AM) Weight Dosing 104.00 kg (03/01/23 7:11 AM) Weight Estimated 104.00 kg (03/01/23 6:54 AM) Height/Length Dosing 178.000 cm (03/01/23 7:11 AM) Height/Length Estimated 178.000 cm (03/01/23 6:54 AM) Social History Social History Type Response Tobacco Never tobacco user T obacco Use:. Sex Hospital Discharge Instructions Patient Education 03/01/2023 07:55:10 Abdominal Pain, Adult Abdominal Pain, Adult Pain [...] these instructions at home: Medicines ??? Take hdap-bhu-dqqnwdg and prescription medicines only as told by [...] your condition for any changes. ??? Take yhfe-spg-aqwomem and prescription medicines only as told by [...] provider. Document Revised: 07/21/2020 Document Reviewed: 10/11/2019 [employer] Patient Education ?? 2022 [employer]. Follow Up Care 03/01/2023 06:54:36 With:primary care physician Address: When:3 to 5 days Physician Emergency department Note * Mariann Mckeon MD: PERFORM Event Display: ED Note Physician Authored Date: [id number] DESIRE SANCHEZ :1995 Age:27 years Sex:Male Visit Date:03/01/2023 Primary Care Physician: JARRELL HOUSER DO Basic Information Time Seen: Mariann Mckeon MD / 03/01/2023 07:10 Chief Complaint Pt reports L sided abd pain that started this AM. No measured fevers, vomited x1. History Of Present Illness: This patient is a 27-year-old male who is well-known to our emergency department who presents to the emergency department today for evaluation of abdominal pain.?? Patient was recently diagnosed with??biliary colic??but states that starting since this morning he has had no left-sided abdominal pain??both in the left upper and lower quadrants.?? The patient states he has also had some vomiting this morning.?? No fevers or chills.?? No associated diarrhea.?? States that this pain does not feel similar to his biliary colic. Review of Systems: CONSTITUTIONAL:??No fevers or chills. EYES:??No change in vision. ENT:??No sore throat. ??No headache. ??No neck pain. CARDIOVASCULAR:??No chest pain, palpitations or passing out episodes. RESPIRATORY:??No cough, shortness of breath or hemoptysis. GI:??+abdominal pain. +nausea, vomiting x1 no diarrhea. :??No change in urination. SKIN:??No rash. NEUROLOGIC:??No numbness or weakness. MUSCULOSKELETAL:??No swelling or pain. PSYCHIATRIC:??No depression. LYMPH:??No swelling. Review of systems otherwise as stated in HPI Physical Exam Vitals & Measurements T:??37.5?C ??(Temporal Artery)?? HR:??87??(Peripheral)?? RR:??16?? BP:??137/70?? SpO2:??95%?? HT:??178.000??cm?? WT:??104.00??kg??(Estimated)?? O2 Therapy:??Room air?? General: ??AAOx3. ??GCS15. ??No acute distress, answering questions appropriately.?? Obese Head: ??Atraumatic; Normocephalic Eye: ??PERRLA; EOMI; no scleral icterus / pallor ENT: moist mucous membranes; no epistaxis. No stridor. Neck: ??Active ROM intact; Trachea Midline. ??No JVD. ??No meningismus appreciated. Skin: Warm, dry Chest: ??Equal BS bilaterally. ??Clear to auscultation bilaterally. Heart: RRR; no murmur, rub, or gallop Abdomen: ??Soft, left??sided abdominal??tenderness to palpation??mild, non- distended, no guarding, rebound, or rigidity. No Hepatosplenomegaly Musculoskeletal: ??ROM intact of all extremities/joints without discomfort. ??Sensation grossly intact throughout. ??No obvious deformity. ??Strength Intact 5/5 throughout. ?? Neuro: Alert and oriented. Answering questions appropriately with clear speech. Motor and sensory grossly normal in all extremities.?? Medical Decision Making: Patient is a 27-year-old male presents today for evaluation of abdominal pain.?? Patient is well-known to this emergency department has had 12 visits just this summer to the emergency department in [facility] outpatient offices.?? Patient states that his pain today is different than his biliary colic for which he has planned surgery for later this month.?? Therefore CT scan was ordered. Patient C T scan shows the gallstones but no other acute abnormality.?? His lab work including CBC and CMP are unremarkable.?? Lipase is normal.?? At this time I think the patient be discharged home.?? He doeshave an upcoming surgery for cholecystectomy.?? Patient the patient is resting comfortably.?? He agrees with plan??for discharge. Procedure No Qualifying Data Assessment/Plan 1.??Abdominal pain in male??R10.9 Orders: Discharge Patient, 03/01/23 8:55:00 EDT Patient Education Abdominal Pain, Adult Follow Up With When Contact [...] Results CT Abdomen and Pelvis w/ Contrast 03/01/2023 08:[address] Abdomen and Pelvis w/ Contrast ?? 03/01/23 07:34:24 PROCEDURE INFORMATION: Exam: CT Abdomen And Pelvis With Contrast Exam date and time: 03/01/2023 7:34 AM Age: 27 years old Clinical indication: Abdominal pain; Localized; Left upper quadrant (luq); Additional info: Left sided abd pain ?? TECHNIQUE: Imaging protocol: Computed tomography of the abdomen and pelvis with contrast. Radiation optimization: All CT scans at this facility use at least one of these dose optimization techniques: automated exposure control; mA and/or kV adjustment per patient size (includes targeted exams where dose is matched to clinical indication); or iterative reconstruction. Contrast material: ISOVUE; Contrast volume: 100 ml; Contrast route: INTRAVENOUS (IV); ?? REPORTING DATA: Count of CT and Cardiac NM exams in prior 12 months: This patient has received 3 known CTs and 0 known cardiac nuclear medicine studies in the 12 months prior to the current study. ?? COMPARISON: CT ABD/PELVIS W CONTRAST 09/08/2022 12:51 PM ?? FINDINGS: Lungs: No acute airspace or pleural disease. Liver: Fatty infiltration of the liver. Gallbladder and bile ducts: Cholelithiasis. Pancreas: No pancreatic mass or ductal dilatation. Spleen: Enlarged spleen measuring 14.0 cm in length. Adrenal glands: Unremarkable adrenals. Kidneys and ureters: 1.6 cm nodular hypodense lesion in the upper pole left kidney which does not fulfill CT criteria for a simple cyst. No hydronephrosis perinephric fluid. Stomach and bowel: Decompressed stomach limiting evaluation. Prominent stool in a pattern suggesting constipation. Diverticula, without pericolonic inflammation. Mild wall thickening in the nondistended rectum. Appendix: No acute appendicitis. Intraperitoneal space: No significant free fluid. Vasculature: Normal caliber of the abdominal aorta. Lymph nodes: Subcentimeter lymph nodes. Urinary bladder: Normal bladder morphology. Reproductive: Punctate prostate calcification. Scrotal calcifications. Bones/joints: Chronic compression deformities in the visualized inferior thoracic spine. Soft tissues: Infiltration of subcutaneous fat about the umbilicus. ? IMPRESSION: 1. Cholelithiasis. 2. 1.6 cm nodular hypodense lesion in the upper pole left kidney which does not fulfill CT criteria for a simple cyst. 3. Additional findings as described above. ? THIS DOCUMENT HAS BEEN ELECTRONICALLY SIGNED BY TONNY DOUGHERTY MD on 03/01/2023 08:36 AM ?? Signed By: Tonny Dougherty MD Lab Results CBC and Differential?? LATEST RESULTS?? HISTORICAL RESULTS?? WBC?? 03/01/23 07:18?? 7.1?? 02/28/23?? 4.1 ??Low?? RBC?? 03/01/23 07:18?? 3.90 ??Low?? 02/28/23?? 3.63 ??Low?? Hgb?? 03/01/23 07:18?? 12.3 ??Low?? 02/28/23?? 11.6 ??Low?? Hct?? 03/01/23 07:18?? 36.7 ??Low?? 02/28/23?? 34.0 ??Low?? MCV?? 03/01/23 07:18?? 94.1 ??High?? 02/28/23?? 93.7?? MCH?? 03/01/23 07:18?? 31.5 ??High?? 02/28/23?? 32.0 ??High?? MCHC?? 03/01/23 07:18?? 33.5?? 02/28/23?? 34.1?? RDW-CV?? 03/01/23 07:18?? 12.4?? 02/28/23?? 12.2?? Platelets?? 03/01/23 07:18?? 237?? 02/28/23?? 212?? MPV?? 03/01/23 07:18?? 10.8 ??High?? 02/28/23?? 10.8 ??High?? Neutro Auto?? 03/01/23 07:18?? 64.8?? 02/28/23?? 57.4?? Lymph Auto?? 03/01/23 07:18?? 17.9 ??Low?? 02/28/23?? 24.5?? Chicot Auto?? 03/01/23 07:18?? 14.8 ??High?? 02/28/23?? 15.5 ??High?? Eos, Auto?? 03/01/23 07:18?? 1.80?? 02/28/23?? 1.70?? Basophil Auto?? 03/01/23 07:18?? 0.6?? 02/28/23?? 0.7?? Imm Gran Auto?? 03/01/23 07:18?? 0.1?? 02/28/23?? 0.2?? NRBC Auto?? 03/01/23 07:18?? 0?? 10/23/22?? 0?? Neutro Absolute?? 03/01/23 07:18?? 4.6?? 02/28/23?? 2.4?? Lymph Absolute?? 03/01/23 07:18?? 1.3?? 02/28/23?? 1.0 ??Low?? [place] Absolute?? 03/01/23 07:18?? 1.0 ??High?? 02/28/23?? 0.6?? Eos Absolute?? 03/01/23 07:18?? 0.1?? 02/28/23?? 0.1?? Baso Absolute?? 03/01/23 07:18?? 0.0?? 02/28/23?? 0.0?? Imm Gran Absolute?? 03/01/23 07:18?? 0.01?? 02/28/23?? 0.01?? NRBC Absolute?? 03/01/23 07:18?? 0?? 10/23/22?? 0? Routine Chemistry?? LATEST RESULTS?? HISTORICAL RESULTS?? Sodium Level?? 03/01/23 07:18?? 136?? 02/28/23?? 135?? Potassium Level?? 03/01/23 07:18?? 3.6?? 02/28/23?? 3.6?? Chloride Level?? 03/01/23 07:18?? 98?? 02/28/23?? 100?? CO2?? 03/01/23 07:18?? 29?? 02/28/23?? 30?? Alk Phos?? 03/01/23 07:18?? 85?? 02/22/23?? 88?? AST?? 03/01/23 07:18?? 26?? 02/22/23?? 25?? ALT?? 03/01/23 07:18?? 24?? 02/22/23?? 27?? BUN?? 03/01/23 07:18?? 13?? 02/28/23?? 16?? Glucose Level?? 03/01/23 07:18?? 108 ??High?? 02/28/23?? 102?? Creatinine Level?? 03/01/23 07:18?? 1.10?? 02/28/23?? 1.21?? BUN/Creat Ratio?? 03/01/23 07:18?? 11.8?? 02/28/23?? 13.2?? eGFR CKD-EPI?? 03/01/23 07:18?? 93?? 02/28/23?? 83?? Calcium Level?? 03/01/23 07:18?? 7.6 ??Low?? 02/28/23?? 7.8 ??Low?? Protein Total?? 03/01/23 07:18?? 7.4?? 02/22/23?? 7.4?? Albumin Level?? 03/01/23 07:18?? 3.5?? 02/22/23?? 3.6?? Globulin?? 03/01/23 07:18?? 3.9 ??High?? 02/22/23?? 3.8 ??High?? A/G Ratio?? 03/01/23 07:18?? 0.9 ??Low?? 02/22/23?? 0.9 ??Low?? Bilirubin Total?? 03/01/23 07:18?? 0.3?? 02/22/23?? 0.5?? Anion Gap?? 03/01/23 07:18?? 9.0?? 02/28/23?? 5.0?? Lipase Level?? 03/01/23 07:18?? 26?? 02/22/23?? 25?? Osmolality?? 03/01/23 07:18?? 273 ??Low?? 02/28/23?? 271 ??Low? Electronically Signed on 03/01/23 08:55 AM Mariann Mckeon MD Emergency department Discharge instructions * Mariann Mckeon MD: PERFORM Event Display: ED Discharge Information Authored Date: [id number] DESIRE SANCHEZ :1995 Age:27 years Sex:Male Visit Date:03/01/2023 Primary Care Physician: JARRELL HOUSER DO Discharge Instructions We would like to thank you for allowing us to assist you with your healthcare needs. The following includes patient education materials and information regarding your injury/illness. Diagnosis from Today's Visit Abdominal pain in male Discharge Vitals Temperature??(Temporal Artery) 99.5 ??F (37.5 ??C) Heart Rate??(Peripheral) 87 Respiratory Rate?? 16 Blood Pressure?? 137/70?? Height?? 70.08 in (178.000 cm) Weight??(Estimated) 229.32 lb (104.00 kg) Allergies amoxicillin??(Vomiting symptom) penicillin codeine What to Do Next You Need to Schedule the Following Appointments Follow Up with??primary care physician When:??Within 3 to 5 days Upcoming Scheduled Appointments 2022 10:30 AM EDT [...] Chest pain due to GERD Education Materials Abdominal Pain, Adult Pain in [...] these instructions at home: Medicines ? Take ixgp-hpc-tbolmrs and prescription medicines only as told by [...] your condition for any changes. ? Take qkqy-mqd-tjvlvxw and prescription medicines only as told by [...] provider. Document Revised: 07/21/2020 Document Reviewed: 10/11/2019 [employer] Patient Education ?? 2022 [employer]. Tests Performed Radiology CT Abdomen and Pelvis w/ Contrast 03/01/2023 08:37 EDT Lab Test Name Test Result Date/Time WBC 7.1 K/mcL 03/01/2023 07:18 EDT RBC 3.90 Million/mcL 03/01/2023 07:18 EDT Hgb 12.3 g/dL 03/01/2023 07:18 EDT Hct 36.7 % 03/01/2023 07:18 EDT MCV 94.1 fL 03/01/2023 07:18 EDT MCH 31.5 pg 03/01/2023 07:18 EDT MCHC 33.5 g/dL 03/01/2023 07:18 EDT RDW-CV 12.4 % 03/01/2023 07:18 EDT Platelets 237 K/mcL 03/01/2023 07:18 EDT MPV 10.8 fL 03/01/2023 07:18 EDT Neutro Auto 64.8 % 03/01/2023 07:18 EDT Lymph Auto 17.9 % 03/01/2023 07:18 EDT Chicot Auto 14.8 % 03/01/2023 07:18 EDT Eos, Auto 1.80 % 03/01/2023 07:18 EDT Basophil Auto 0.6 % 03/01/2023 07:18 EDT Imm Gran Auto 0.1 % 03/01/2023 07:18 EDT NRBC Auto 0 03/01/2023 07:18 EDT Neutro Absolute 4.6 K/mcL 03/01/2023 07:18 EDT Lymph Absolute 1.3 K/mcL 03/01/2023 07:18 EDT Chicot Absolute 1.0 K/mcL 03/01/2023 07:18 EDT Eos Absolute 0.1 K/mcL 03/01/2023 07:18 EDT Baso Absolute 0.0 K/mcL 03/01/2023 07:18 EDT Imm Gran Absolute 0.01 03/01/2023 07:18 EDT NRBC Absolute 0 03/01/2023 07:18 EDT Sodium Level 136 mmol/L 03/01/2023 07:18 EDT Potassium Level 3.6 mmol/L 03/01/2023 07:18 EDT Chloride Level 98 mmol/L 03/01/2023 07:18 EDT CO2 29 mmol/L 03/01/2023 07:18 EDT Alk Phos 85 IntlUnit/L 03/01/2023 07:18 EDT AST 26 IntlUnit/L 03/01/2023 07:18 EDT ALT 24 IntlUnit/L 03/01/2023 07:18 EDT BUN 13 mg/dL 03/01/2023 07:18 EDT Glucose Level 108 mg/dL 03/01/2023 07:18 EDT Creatinine Level 1.10 mg/dL 03/01/2023 07:18 EDT BUN/Creat Ratio 11.8 03/01/2023 07:18 EDT eGFR CKD-EPI 93 mL/min/1.73 m2 03/01/2023 07:18 EDT Calcium Level 7.6 mg/dL 03/01/2023 07:18 EDT Protein Total 7.4 g/dL 03/01/2023 07:18 EDT Albumin Level 3.5 g/dL 03/01/2023 07:18 EDT Globulin 3.9 g/dL 03/01/2023 07:18 EDT A/G Ratio 0.9 g/dL 03/01/2023 07:18 EDT Bilirubin Total 0.3 mg/dL 03/01/2023 07:18 EDT Anion Gap 9.0 03/01/2023 07:18 EDT Lipase Level 26 unit/L 03/01/2023 07:18 EDT Osmolality 273 mOsm/kg 03/01/2023 07:18 EDT Patient/Metal Technician Signature Patient Name:SANCHEZDESIRE I have received this information and my questions have been answered. Patient/Metal Technician Name: Patient/Metal Technician Signature: Relationship to Patient: Witness Name/Signature: Date: Electronically Signed on: 03/01/2023 08:55 EDTSigned by: Patient Care team information Care Team Personnel Name: JARRELL HOUSER DO Position: No Access Member Role: Primary Care Physician Address: Address: [address] [address]- [place] Name: Mariann Mckeon MD Position: Physician Member Role: Admitting Physician Address: Address: [address] [place] [address] Name: Cami Melgar Position: Nurse Member Role: ED Nurse Care Team Related Persons Name: ARY SANCHEZ Name: MILLER SANCHEZ
--- OUTSIDE RECORDS SUMMARY | 2023-05-14 12:35 | XMS_ITS | Continuity of Care Document ---
Author Name Unknown Organization [facility] Address [address] [place] [phone] Care Team Providers Care Hide Sorter Name Role Phone JARRELL HOUSER DO Primary Care Physician Encounter [facility] NBR [id number] Date(s): 12/25/22 - 12/25/22 [facility] [address] [place] [address]- [place] Encounter Diagnosis Cervical adenopathy(Discharge Diagnosis) - 12/25/22 Headache(Discharge Diagnosis) - 12/25/22 Discharge Disposition: Home or Self Care Attending Physician: Berto Davis MD Admitting Physician: Berto Davis MD Allergies, Adverse Reactions, Alerts Substance Reaction Severity Status codeine Unknown Active amoxicillin Vomiting symptom Moderate Active Functional Status 12/25/22 Other exposure to Infectious Disease Non e [...] forms, # 12 cap, 0 Refill(s), Pharmacy: [id number], 178, cm, 12/18/22 13:10:00 EDT, Height/Length [...] 0 Refill(s) Start Date: 09/22/22 Status: Ordered prochlorperazine 10 mg oral tablet 10 mg = 1 tab, Oral, TID, PRN headache, Headache, not responsive to Tylenol/Motrin, # 21 tab, 0 Refill(s), 01/01/23 11:17:00 EDT, Pharmacy: [id number], 178, cm, 12/25/22 8:34:00 EDT, Height/Length Dosing, 104, kg, 12/25/22 8:34:00 EDT, Weight Do... Start Date: 12/25/22 Stop Date: 01/01/23 Status: Ordered Tums 500 mg oral tablet, chewable 500 mg = 1 tab, Chewed, BID, # 60 tab, 0 Refill(s) Start Date: 09/22/22 Status: Ordered Mental Status 12/25/22 Eye Opening Response Arthur Spontaneous ly Best Verbal Response Langley Oriented Best Motor Response Langley Obeys comman ds Arthur Coma Score 15 [...] Exam Date Time Procedure Performing Provider Status 12/25/22 10:[address] Neck Soft Tissue w/ Contrast Dipti Liriano; Auth (Verified) Notes: (CT Neck Soft Tissue w/ Contrast) Reason For Exam: hx MEN, SAWYER, neck pain CT Neck Soft Tissue w/ Contrast EXAM DESCRIPTION: CT Neck Soft Tissue w/ Contrast 12/25/2022 INDICATION: HX MEN, SAWYER, NECK PAIN TECHNIQUE: All CT scans at this facility use at least one of these dose optimization techniques: Automated exposure control; mA and/or kV adjustment per patient size (includes targeted exams where dose is matched to clinical indication); or iterative reconstruction. CT examination of the neck with contrast with thin section axial images including sagittal and coronal MPR images performed on a separate workstation under concurrent supervision. 100 cc of Isovue-300 contrast was utilized COMPARISON: None FINDINGS: Mildly enlarged lymph node in the left upper internal jugular chain measuring 14 mm in maximum dimension which may be reactive. Otherwise no neck mass or adenopathy. Nasopharynx and parapharyngeal fat planes appear symmetric. Parotid and submandibular salivary glands appear within normal limits. Prevertebral soft tissues in the cervical region are unremarkable. Epiglottis and vallecula appear within normals. No tongue region mass is identified. No thyroid region mass identified No mass or adenopathy in the visualized superior mediastinum. Mild patchy infiltrate in the left upper lobe No suspicious regional osseous lesions. IMPRESSION: Mildly enlarged lymph node in the left upper internal jugular chain measuring approximately 14 mm in maximum dimension which may be reactive. Otherwise no neck mass or adenopathy. Mild patchy infiltrate in the left upper lobe. JOB #: [id number] Final Signed by: John Burciaga MD Signed (Electronic Signature): 12/25/2022 10:30 am * Exam Date Time Procedure Performing Provider Status 12/25/22 10:[address] Head w/ + w/o Contrast Jocelin Aly; Auth (Verified) Notes: (CT Head w/ + w/o Contrast) Reason For Exam: hx MEN, SAWYER, neck pain CT Head w/ + w/o Contrast EXAM DESCRIPTION: CT Head w/ + w/o Contrast 12/25/2022 INDICATION: HX MEN, SAWYER, NECK PAIN TECHNIQUE: All CT scans at this facility use at least one of these dose optimization techniques: Automated exposure control; mA and/or kV adjustment per patient size (includes targeted exams where dose is matched to clinical indication); or iterative reconstruction. Axial CT images of the head without and with IV contrast. 100 cc of Isovue-300 contrast was utilized COMPARISON: None FINDINGS: No acute intracranial hemorrhage, mass effect or midline shift. No hydrocephalus. Ryan-white differentiation is maintained. Basal cisterns remain patent Postcontrast images demonstrate no abnormal enhancement The calvarium appears intact. Mild bilateral maxillary sinus mucosal thickening. Remaining paranasal sinuses are grossly clear. IMPRESSION: No acute intracranial hemorrhage, mass effect or abnormal enhancement. JOB #: [id number] Final Signed by: John Burciaga MD Signed (Electronic Signature): 12/25/2022 10:17 am Vital Signs Most recent to oldest [Reference Range]: 1 2 Temperature Temporal Artery [36-38 Deg C ] 36.9 Deg C (12/25/22 8:23 AM) Peripheral Pulse Rate [60-100 bpm] 63 bp m (12/25/22 10:55 AM) 101 bpm *HI* (12/25/22 8:23 AM) Respiratory Rate [12-24 br/min] 16 br/mi n (12/25/22 8:23 AM) Blood Pressure [90-140/60-90 mmHg] 109/5 5mmHg (12/25/22 10:55 AM) 124/73mmHg (12/25/22 8:23 AM) Mean Arterial Pressure Cuff 71 mmHg (12/25/22 10:55 AM) Weight Dosing 104.00 kg (12/25/22 8:34 AM) Weight Estimated 104.00 kg (12/25/22 8:23 AM) Height/Length Dosing 178.000 cm (12/25/22 8:34 AM) Height/Length Estimated 178.000 cm (12/25/22 8:23 AM) Social History Social History Type Response Tobacco Never tobacco user T obacco Use:. Sex Hospital Discharge Instructions Patient Education 12/25/2022 10:12:06 Lymphadenopathy Lymphadenopathy Lymphadenopathy means that your lymph glands are swollen or larger than normal. Lymph glands, also called lymph nodes, are collections of tissue that filter excess fluid, bacteria, viruses, and wastefrom your bloodstream. They are part of your body's disease-fighting system (immune system), which protects your body from germs. There may be different causes of lymphadenopathy, depending on where it is in your body. Some typesgo away on their own. Lymphadenopathy can occur anywhere that you have lymph glands, including these areas: ??? Neck (cervical lymphadenopathy). ??? Chest (mediastinal lymphadenopathy). ??? Lungs (hilar lymphadenopathy). ??? Underarms (axillary lymphadenopathy). ??? Groin (inguinal lymphadenopathy). When your immune system responds to germs, infection-fighting cells and fluid build up in your lymph glands. This causes some swelling and enlargement. If the lymph nodes do not go back to normal size after you have an infection or disease, your health care provider may do tests. These tests help to monitor your condition and find the reason why the glands are still swollen and enlarged. Follow these instructions at home: ??? Get plenty of rest. ??? Your health care provider may recommend bxep-vcf-lrxuoij medicines for pain. Take fzhp-yus-pwvrupc and prescription medicines only as told by your health care provider. ??? If directed, apply heat to swollen lymph glands as often as told by your health [...] a greater risk of getting burned. ??? Check your affected lymph glands every day for changes. Check other lymph gland areas as told by your health care provider. Check for changes such as: ??? More swelling. ??? Sudden increase in size. ??? Redness or pain. ??? Hardness. ??? Keep all follow-up visits. This is important. Contact a health care provider if you have: ??? Lymph glands that: ??? Are still swollen after 2 weeks. ??? Have suddenly gotten bigger or the swelling spreads. ??? Are red, painful, or hard. ??? Fluid leaking from the skin near an enlarged lymph gland. ??? Problems with breathing. ??? A fever, chills, or night sweats. ??? Fatigue. ??? A sore throat. ??? Pain in your abdomen. ??? Weight loss. Get help right away if you have: ??? Severe pain. ??? Chest pain. ??? Shortness of breath. These symptoms may represent a serious problem that is an emergency. Do not wait to see if the symptoms will go away. Get medical help right away. Call your local emergency services (911 in the [place] Do not drive yourself to the hospital. Summary ??? Lymphadenopathy means that your lymph glands are swollen or larger than normal. ??? Lymph glands, also called lymph nodes, are collections of tissue that filter excess fluid, bacteria, viruses, and waste from the bloodstream. They are part of your body's disease-fighting system (immune system). ??? Lymphadenopathy can occur anywhere that you have lymph glands. ??? If the lymph nodes do not go back to normal size after you have an infection or disease, your health care provider may do tests to monitor your condition and find the reason why the glands are still swollen and enlarged. ??? Check your affected lymph glands every day for changes. Check other lymph gland areas as told by your health care provider. This information is not intended to replace advice given to you by your health care provider. Make sure you discuss any questions you have with your health care provider. Document Revised: 03/28/2021 Document Reviewed: 03/28/2021 Elsevier Patient Education ?? 2022 [employer] Emergency department Discharge instructions * Nikos HERNANDEZ, Mp Anderson: PERFORM Event Display: ED Discharge Information Authored Date: [id number] DESIRE SANCHEZ :1995 Age:27 years Sex:Male Visit Date:12/25/2022 Primary Care Physician: JARRELL HOUSER DO Discharge Instructions We would like to thank you for allowing us to assist you with your healthcare needs. The following includes patient education materials and information regarding your injury/illness. Diagnosis from Today's Visit Cervical adenopathy Headache Discharge Vitals Temperature??(Temporal Artery) 98.4 ??F (36.9 ??C) Heart Rate??(Peripheral) 63 Respiratory Rate?? 16 Blood Pressure?? 109/55?? Height?? 70.08 in (178.000 cm) Weight??(Estimated) 229.32 lb (104.00 kg) Allergies amoxicillin??(Vomiting symptom) codeine What to Do Next Instructions from Your Care Team Brain and neck CT contrast imaging did not??reveal??a serious cause for your headache or??the slight swollen nodes in your neck.?? Follow-up with [facility] and your primary care provider??for furtherevaluation if your symptoms worsen or persist.?? I gave you Compazine??and Tylenol in the emergencydepartment for your headache; I am writing you for some Compazine to use as necessary for headaches. ?? It is okay to take 1 tablet up to 3 times a day.?? It is also okay to take??Tylenol 1 g up to 4 times a day, and Motrin 800 mg up to 4 times a day with food as needed for headache.?? Return to emergency??if anything acutely worsens,??headaches??with fever,??or focal neurologic problems (weakness, trouble with speech, vision etc.). You were treated today on an emergency [...] Much When Why Instructions Next Dose New prochlorperazine (prochlorperazine 10 mg oral tablet) 1 tab Oral (given by mouth) 3 times a day as needed for headache Cervical adenopathy Headache Headache, not responsive to Tylenol/ Motrin ?? Pickup at [facility] Unchanged acetaminophen (acetaminophen 325 mg oral [...] for as needed for pain Pharmacy Information [facility]: [address] [place], [place] [id number] [phone] Education Materials Lymphadenopathy Lymphadenopathy means that your lymph glands are swollen or larger than normal. Lymph glands, also called lymph nodes, are collections of tissue that filter excess fluid, bacteria, viruses, and wastefrom your bloodstream. They are part of your body's disease-fighting system (immune system), which protects your body from germs. There may be different causes of lymphadenopathy, depending on where it is in your body. Some typesgo away on their own. Lymphadenopathy can occur anywhere that you have lymph glands, including these areas: ? Neck (cervical lymphadenopathy). ? Chest (mediastinal lymphadenopathy). ? Lungs (hilar lymphadenopathy). ? Underarms (axillary lymphadenopathy). ? Groin (inguinal lymphadenopathy). When your immune system responds to germs, infection-fighting cells and fluid build up in your lymph glands. This causes some swelling and enlargement. If the lymph nodes do not go back to normal size after you have an infection or disease, your health care provider may do tests. These tests help to monitor your condition and find the reason why the glands are still swollen and enlarged. Follow these instructions at home: ? Get plenty of rest. ? Your health care provider may recommend xlsu-ulk-vlpqopg medicines for pain. Take zxvp-rbm-eudjait and prescription medicines only as told by your health care provider. ? If directed, apply heat to swollen lymph glands as often as told by your health [...] have a greater risk of getting burned. ? Check your affected lymph glands every day for changes. Check other lymph gland areas as told by your health care provider. Check for changes such as: ? More swelling. ? Sudden increase in size. ? Redness or pain. ? Hardness. ? Keep all follow-up visits. This is important. Contact a health care provider if you have: ? Lymph glands that: ? Are still swollen after 2 weeks. ? Have suddenly gotten bigger or the swelling spreads. ? Are red, painful, or hard. ? Fluid leaking from the skin near an enlarged lymph gland. ? Problems with breathing. ? A fever, chills, or night sweats. ? Fatigue. ? A sore throat. ? Pain in your abdomen. ? Weight loss. Get help right away if you have: ? Severe pain. ? Chest pain. ? Shortness of breath. These symptoms may represent a serious problem that is an emergency. Do not wait to see if the symptoms will go away. Get medical help right away. Call your local emergency services (911 in the [place] Do not drive yourself to the hospital. Summary ? Lymphadenopathy means that your lymph glands are swollen or larger than normal. ? Lymph glands, also called lymph nodes, are collections of tissue that filter excess fluid, bacteria, viruses, and waste from the bloodstream. They are part of your body's disease-fighting system (immune system). ? Lymphadenopathy can occur anywhere that you have lymph glands. ? If the lymph nodes do not go back to normal size after you have an infection or disease, your health care provider may do tests to monitor your condition and find the reason why the glands are still swollen and enlarged. ? Check your affected lymph glands every day for changes. Check other lymph gland areas as told by your health care provider. This information is not intended to replace advice given to you by your health care provider. Make sure you discuss any questions you have with your health care provider. Document Revised: 03/28/2021 Document Reviewed: 03/28/2021 [employer] Patient Education ?? 2022 [employer] Tests Performed Radiology CT Head w/ + w/o Contrast 12/25/2022 10:[address] Neck Soft Tissue w/ Contrast 12/25/2022 10:32 EDT Medications and Immunizations Administered Given acetaminophen, 1000 mg, Oral Benadryl, 25 mg, IV Push prochlorperazine, IV Piggyback Patient/Teacher Lip Reading Signature Patient Name:DESIRE SANCHEZ I have received this information and my questions have been answered. Patient/Teacher Lip Reading Name: Patient/Teacher Lip Reading Signature: Relationship to Patient: Witness Name/Signature: Date: Electronically Signed on: 12/25/2022 11:17 EDTSigned by:ROBERTA * Nikos HERNANDEZ, Mp Anderson: PERFORM Event Display: ED Discharge Information Authored Date: [id number] DESIRE SANCHEZ :1995 Age:27 years Sex:Male Visit Date:12/25/2022 Primary Care Physician: JARRELL HOUSER DO Discharge Instructions We would like to thank you for allowing us to assist you with your healthcare needs. The following includes patient education materials and information regarding your injury/illness. Diagnosis from Today's Visit Cervical adenopathy Headache Discharge Vitals Temperature??(Temporal Artery) 98.4 ??F (36.9 ??C) Heart Rate??(Peripheral) 63 Respiratory Rate?? 16 Blood Pressure?? 109/55?? Height?? 70.08 in (178.000 cm) Weight??(Estimated) 229.32 lb (104.00 kg) Allergies amoxicillin??(Vomiting symptom) codeine What to Do Next Instructions from Your Care Team Brain and neck CT contrast imaging did not??reveal??a serious cause for your headache or??the slight swollen nodes in your neck.?? Follow-up with [facility] and your primary care provider??for furtherevaluation if your symptoms worsen or persist.?? I gave you Compazine??and Tylenol in the emergencydepartment for your headache; I am writing you for some Compazine to use as necessary for headaches. ?? It is okay to take 1 tablet up to 3 times a day.?? It is also okay to take??Tylenol 1 g up to 4 times a day, and Motrin 800 mg up to 4 times a day with food as needed for headache.?? Return to emergency??if anything acutely worsens,??headaches??with fever,??or focal neurologic problems (weakness, trouble with speech, vision etc.). You were treated today on an emergency [...] for as needed for pain Education Materials Lymphadenopathy Lymphadenopathy means that your lymph glands are swollen or larger than normal. Lymph glands, also called lymph nodes, are collections of tissue that filter excess fluid, bacteria, viruses, and wastefrom your bloodstream. They are part of your body's disease-fighting system (immune system), which protects your body from germs. There may be different causes of lymphadenopathy, depending on where it is in your body. Some typesgo away on their own. Lymphadenopathy can occur anywhere that you have lymph glands, including these areas: ? Neck (cervical lymphadenopathy). ? Chest (mediastinal lymphadenopathy). ? Lungs (hilar lymphadenopathy). ? Underarms (axillary lymphadenopathy). ? Groin (inguinal lymphadenopathy). When your immune system responds to germs, infection-fighting cells and fluid build up in your lymph glands. This causes some swelling and enlargement. If the lymph nodes do not go back to normal size after you have an infection or disease, your health care provider may do tests. These tests help to monitor your condition and find the reason why the glands are still swollen and enlarged. Follow these instructions at home: ? Get plenty of rest. ? Your health care provider may recommend idak-pls-mvpzadj medicines for pain. Take bllu-kie-bpiuarg and prescription medicines only as told by your health care provider. ? If directed, apply heat to swollen lymph glands as often as told by your health [...] have a greater risk of getting burned. ? Check your affected lymph glands every day for changes. Check other lymph gland areas as told by your health care provider. Check for changes such as: ? More swelling. ? Sudden increase in size. ? Redness or pain. ? Hardness. ? Keep all follow-up visits. This is important. Contact a health care provider if you have: ? Lymph glands that: ? Are still swollen after 2 weeks. ? Have suddenly gotten bigger or the swelling spreads. ? Are red, painful, or hard. ? Fluid leaking from the skin near an enlarged lymph gland. ? Problems with breathing. ? A fever, chills, or night sweats. ? Fatigue. ? A sore throat. ? Pain in your abdomen. ? Weight loss. Get help right away if you have: ? Severe pain. ? Chest pain. ? Shortness of breath. These symptoms may represent a serious problem that is an emergency. Do not wait to see if the symptoms will go away. Get medical help right away. Call your local emergency services (911 in the [place] Do not drive yourself to the hospital. Summary ? Lymphadenopathy means that your lymph glands are swollen or larger than normal. ? Lymph glands, also called lymph nodes, are collections of tissue that filter excess fluid, bacteria, viruses, and waste from the bloodstream. They are part of your body's disease-fighting system (immune system). ? Lymphadenopathy can occur anywhere that you have lymph glands. ? If the lymph nodes do not go back to normal size after you have an infection or disease, your health care provider may do tests to monitor your condition and find the reason why the glands are still swollen and enlarged. ? Check your affected lymph glands every day for changes. Check other lymph gland areas as told by your health care provider. This information is not intended to replace advice given to you by your health care provider. Make sure you discuss any questions you have with your health care provider. Document Revised: 03/28/2021 Document Reviewed: 03/28/2021 [employer] Patient Education ?? 2022 [employer] Tests Performed Radiology CT Head w/ + w/o Contrast 12/25/2022 10:[address] Neck Soft Tissue w/ Contrast 12/25/2022 10:32 EDT Medications and Immunizations Administered Given acetaminophen, 1000 mg, Oral Benadryl, 25 mg, IV Push prochlorperazine, IV Piggyback Patient/Teacher Lip Reading Signature Patient Name:DESIRE SANCHEZ I have received this information and my questions have been answered. Patient/Teacher Lip Reading Name: Patient/Teacher Lip Reading Signature: Relationship to Patient: Witness Name/Signature: Date: Electronically Signed on: 12/25/2022 11:15 EDTSigned by:[facility] Patient Care team information Care Team Personnel Name: JARRELL HOUSER DO Position: No Access Member Role: Primary Care Physician Address: Address: [address] [id number] Name: Mp Knott MD Position: Physician Member Role: ED Physician Address: Address: [facility] [address] [place] [id number] Name: Christina Cruz I Position: Nurse Member Role: ED Nurse Care Team Related Persons Name: ARY SANCHEZ Name: MILLER SANCHEZ
--- OUTSIDE RECORDS SUMMARY | 2023-05-14 12:35 | XMS_ITS | Continuity of Care Document ---
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 Name Role Phone JARRELL HOUSER DO Primary Care Physician Encounter [facility] FIN NBR [id number] Date(s): 05/11/23 - 05/11/23 [facility] [address] [place] [address]- Encounter Diagnosis Upper respiratory infection(Discharge Diagnosis) - 05/11/23 Acute upper respiratory infection, unspecified(Final) - Discharge Disposition: Home or Self Care Attending Physician: Uday Díaz MD Admitting Physician: Uday Díaz MD Allergies, Adverse Reactions, Alerts Substance Reaction Severity Status codeine Unknown Active amoxicillin Vomiting symptom Moderate Active penicillin Moderate Active Functional Status 05/11/23 Family Member Travel History No recent t [...] 6.7 g, 0 Refill(s), 06/02/23 9:14:00 PM CERTIFIED PHYSICIAN'S ASSISTANT, Pharmacy: [id number], 177.8, cm, 05/03/23 20:22:00 EST, Height, [...] Daily, # 30 cap, 0 Refill(s), Pharmacy: [id number], 178, cm, 02/28/23 14:26:00 EDT, Height/Length Dosing, 104, kg, 02/28/23 14:26:00 EDT, Weight Dosing Start Date: 02/28/23 Status: Ordered Tums 500 mg oral tablet, chewable 500 mg = 1 tab, Chewed, BID, # 60 tab, 0 Refill(s) Start Date: 09/22/22 Status: Ordered Mental Status 05/11/23 Eye Opening Response [place] Spontaneous ly Best Verbal Response Arthur Oriented Best Motor Response Arthur Obeys comman ds [place] Coma Score 15 Problem List Condition Confirmation [...] or CoV-2 (COVID-19) Ag (Leonora) [Negative] Negative (05/11/23 12:35 PM) Employed in healthcare? Unknown *NA* (05/11/23 12:35 PM) Symptomatic as defined by CDC? Unknown *NA* (05/11/23 12:35 PM) Date of onset (Lab) Unknown *NA* (05/11/23 12:35 PM) Hospitalized due to COVID-19? Unknown *NA* (05/11/23 12:35 PM) In ICU? Unknown *NA* (05/11/23 12:35 PM) Group care resident? Unknown *NA* (05/11/23 12:35 PM) status? Unknown *NA* (05/11/23 12:35 PM) Radiology Reports * Exam Date Time Procedure Performing Provider Status 05/11/23 3:[address] Angio Chest Tejal Zimmer; Au th (Verified) Notes: (CT Angio Chest) Reason For Exam: SOB, concern for air embolus, perform a PE study CT Angio Chest PROCEDURE INFORMATION: Exam: CTA Chest With Contrast Exam date and time: 05/11/2023 2:52 PM Age: 27 years old Clinical indication: Shortness of breath; Additional info: SOB, concern for air embolus, perform a pe study TECHNIQUE: Imaging protocol: Computed tomographic angiography of the chest with contrast. Exam focused on the arteries. 3D rendering (Not supervised by radiologist): MIP and/or 3D reconstructed images were created by the technologist. Radiation optimization: All CT scans at this facility use at least one of these dose optimization techniques: automated exposure control; mA and/or kV adjustment per patient size (includes targeted exams where dose is matched to clinical indication); or iterative reconstruction. Contrast material: ISOVUE 370; Contrast volume: 100 ml; Contrast route: INTRAVENOUS (IV); REPORTING DATA: Count of CT and Cardiac NM exams in prior 12 months: This patient has received 6 known CTs and 0 known cardiac nuclear medicine studies in the 12 months prior to the current study. COMPARISON: CT ANGIO CHEST 04/25/2023 8:34 AM FINDINGS: Pulmonary arteries: Negative for acute pulmonary embolism. Aorta: Unremarkable. No aortic aneurysm. No aortic dissection. Lungs: Unremarkable. No consolidation. No masses. Pleural spaces: Unremarkable. No pneumothorax. No pleural effusion. Heart: Unremarkable. No cardiomegaly. No pericardial effusion. Lymph nodes: Unremarkable. No enlarged lymph nodes. Bones/joints: Unremarkable. No acute fracture. Soft tissues: Unremarkable. IMPRESSION: Negative for acute pulmonary embolism. THIS DOCUMENT HAS BEEN ELECTRONICALLY SIGNED BY MADDI BALL MD on 05/11/2023 03:38 PM Final Signed by: Maddi Ball MD Signed (Electronic Signature): 05/11/2023 3:38 pm Vital Signs Most recent to oldest [Reference Range]: 1 2 Temperature Tympanic [36.6-38.1 Deg C] 3 6.4 Deg C *LOW* (05/11/23 12:32 PM) Peripheral Pulse Rate [60-100 bpm] 91 bp m (05/11/23 12:32 PM) Blood Pressure [90-140/60-90 mmHg] 123/7 2mmHg (05/11/23 12:32 PM) Mean Arterial Pressure, Cuff [70-110 mmHg] 89 mmHg (05/11/23 12:32 PM) Weight 105.00 kg (05/11/23 12:32 PM) Weight Dosing 105.00 kg (05/11/23 12:54 PM) Height 178.000 cm (05/11/23 12:54 PM) 178.000 cm (05/11/23 12:32 PM) Body Mass Index 33.000 kg/m2 (05/11/23 12:32 PM) Social History Social History Type Response Tobacco Never tobacco user T obacco Use:. Sex Hospital Discharge Instructions Patient Education 05/11/2023 14:42:28 Cough, Adult Cough, Adult Coughing is a reflex that clears your throat and your airways (respiratory system). Coughing helps to heal and protect your lungs. It is normal to cough occasionally, but a cough that happens with other symptoms or lasts a long time may be a sign of a condition that needs treatment. An acute cough may only last 2???3 weeks, while a chronic cough may last 8 or more weeks. Coughing is commonly caused by: ??? Infection of the respiratory systemby viruses or bacteria. ??? Breathing in substances that irritate your lungs. ??? Allergies. ??? Asthma. ??? Mucus that runs down the back of your throat (postnasal drip). ??? Smoking. ??? Acid backing up from the stomach into the esophagus (gastroesophageal reflux). ??? Certain medicines. ??? Chronic lung problems. ??? Other medical conditions such as heart failure or a blood clot in the lung (pulmonary embolism). Follow these instructions at home: Medicines ??? Take lrap-xsk-rmgsrij and prescription medicines only as told by your health care provider. ??? Talk with your health care provider before you take a cough suppressant medicine. Lifestyle ??? Avoid cigarette smoke. Do not use any products that contain nicotine or tobacco, such as cigarettes, e-cigarettes, and chewing tobacco. If you need help quitting, ask your health care provider. ??? Drink enough fluid to keep your urine pale yellow. ??? Avoid caffeine. ??? Do not drink alcohol if your health care provider tells you not to drink. General instructions ??? Pay close attention to changes in your cough. Tell your health care provider about them. ??? Always cover your mouth when you cough. ??? Avoid things that make you cough, such as perfume, candles, cleaning products, or campfire or tobacco smoke. ??? If the air is dry, use a cool mist vaporizer or humidifier in your bedroom or your home to helploosen secretions. ??? If your cough is worse at night, try to sleep in a semi-upright position. ??? Rest as needed. ??? Keep all follow-up visits as told by your health care provider. This is important. Contact a health care provider if you: ??? Have new symptoms. ??? Cough up pus. ??? Have a cough that does not get better after 2???3 weeks or gets worse. ??? Cannot control your cough with cough suppressant medicines and you are losing sleep. ??? Have pain that gets worse or pain that is not helped with medicine. ??? Have a fever. ??? Have unexplained weight loss. ??? Have night sweats. Get help right away if: ??? You cough up blood. ??? You have difficulty breathing. ??? Your heartbeat is very fast. These symptoms may represent a serious problem that is an emergency. Do not wait to see if the symptoms will go away. Get medical help right away. Call your local emergency services (911 in the [place] Do not drive yourself to the hospital. Summary ??? Coughing is a reflex that clears your throat and your airways. It is normal to cough occasionally, but a cough that happens with other symptoms or lasts a long time may be a sign of a condition that needs treatment. ??? Take gefj-uwu-omwgrrm and prescription medicines only as told by your health care provider. ??? Always cover your mouth when you cough. ??? Contact a health care provider if you have new symptoms or a cough that does not get better after 2???3 weeks or gets worse. This information is not intended to replace advice given to you by your health care provider. Make sure you discuss any questions you have with your health care provider. Document Revised: 06/21/2019 Document Reviewed: 06/21/2019 [employer] Patient Education ?? 2022 [employer]. Follow Up Care 05/11/2023 12:32:17 With:Follow-up with your primary care Address: When:1 week Comments:Follow-up with your primary care as needed, they will be able to reevaluate if necessaryReturn to ED if concerns Physician Emergency department Note * ANDREW Sequeira: PERFORM Event Display: ED Note Physician Authored Date: [id number] SANCHEZ DESIREJORGE MANRIQUEZ :1995 Age:27 years Sex:Male Visit Date:05/11/2023 Primary Care Physician: JARRELL HOUSER DO Basic Information Time Seen: ANDREW Sequeira / 05/11/2023 12:43 Chief Complaint at [facility] given fluid bolus air went into my arm , now I feel awful . presents ??stating My mom got mad and brought me here . . states cough with bloody sputum - ??pt states due to dry air History Of Present Illness: Patient is a 27-year-old male presents emergency department??having been seen??at [facility] just prior to his arrival here to the emergency department??he notes that he was brought there by his mother??who was concerned over his cough??and occasional??blood-tinged sputum??he notes that this happens to him every year??around this time of year??and he was not worried.?? In the emergency department patient was given??IV fluids??and upon??reinitiation of pressure bag he felt as though a large a lot of air??entered his line.?? He was placed in the waiting room and we are patient was told that they would check on him shortly??and no one came to check on him. ??Was at this time that he decided??long with his mother to come to the [facility] emergency department??for reevaluation.?? Patient notes thathe has a cough, feels somewhat short of breath??and??is here for evaluation. Review of Systems: See HPI Physical Exam Vitals & Measurements T:??36.4?C ??(Tympanic)?? HR:??91??(Peripheral)?? BP:??123/72?? SpO2:??99%?? HT:??178.000??cm?? WT:??105.00??kg?? BMI:??33.000?? Patient alert oriented age-appropriate well-nourished nontoxic Normocephalic atraumatic Neck supple nontender EOM intact, PERRLA, sclera nonicteric Clear to auscultation bilaterally Regular rate and rhythm no murmurs Neuro exam intact without focal deficit Appropriate mood and affect Medical Decision Making: While here in the emergency department patient was evaluated no acute distress his vital signs werenormal??and although I felt it was unlikely??that there was an air embolus causing his symptoms??patient felt it necessary to rule out the concern.?? A CTA was performed and??was ultimately negative.??Patient will be discharged Procedure No Qualifying Data Assessment/Plan 1.??Upper respiratory infection??J06.9 Patient will follow with primary care??if there are any questions or concerns he will return to theemergency department for any new or worsening symptoms and understands discharge Ordered: Discharge Patient, 05/11/23 15:40:00 EST ?? Patient Education Cough, Adult Follow Up With When Contact Information Follow-up with your primary care Within 1 [...] of : Diagnostic Results CT Angio Chest 05/11/2023 15:[address] Angio Chest ?? 05/11/23 14:52:00 PROCEDURE INFORMATION: Exam: CTA Chest With Contrast Exam date and time: 05/11/2023 2:52 PM Age: 27 years old Clinical indication: Shortness of breath; Additional info: SOB, concern for air embolus, perform a pe study ?? TECHNIQUE: Imaging protocol: Computed tomographic angiography of the chest with contrast. Exam focused on the arteries. 3D rendering (Not supervised by radiologist): MIP and/or 3D reconstructed images were created by the technologist. Radiation optimization: All CT scans at this facility use at least one of these dose optimization techniques: automated exposure control; mA and/or kV adjustment per patient size (includes targeted exams where dose is matched to clinical indication); or iterative reconstruction. Contrast material: ISOVUE 370; Contrast volume: 100 ml; Contrast route: INTRAVENOUS (IV); ?? REPORTING DATA: Count of CT and Cardiac NM exams in prior 12 months: This patient has received 6 known CTs and 0 known cardiac nuclear medicine studies in the 12 months prior to the current study. ?? COMPARISON: CT ANGIO CHEST 04/25/2023 8:34 AM ?? FINDINGS: Pulmonary arteries: Negative for acute pulmonary embolism. Aorta: Unremarkable. No aortic aneurysm. No aortic dissection. ?? Lungs: Unremarkable. No consolidation. No masses. Pleural spaces: Unremarkable. No pneumothorax. No pleural effusion. Heart: Unremarkable. No cardiomegaly. No pericardial effusion. Lymph nodes: Unremarkable. No enlarged lymph nodes. ?? Bones/joints: Unremarkable. No acute fracture. Soft tissues: Unremarkable. ?? IMPRESSION: Negative for acute pulmonary embolism. ? THIS DOCUMENT HAS BEEN ELECTRONICALLY SIGNED BY MADDI BALL MD on 05/11/2023 03:38 PM ?? Signed By: Calos HERNANDEZ, Maddi Mosqueda Lab Results Infectious Disease?? LATEST RESULTS?? HISTORICAL RESULTS?? SARS-CoV or CoV-2 (COVID-19) Ag (Leonora)?? 05/11/23 12:35?? Negative?? 04/08/23?? Negative?? Employed in healthcare??? 05/11/23 12:35?? Unknown?? 04/08/23?? Unknown?? Symptomatic as defined by CDC??? 05/11/23 12:35?? Unknown?? 04/08/23?? Unknown?? Date of onset (Lab)?? 05/11/23 12:35?? Unknown?? 04/08/23?? Unknown?? Hospitalized due to COVID-19??? 05/11/23 12:35?? Unknown?? 04/08/23?? Unknown?? In ICU??? 05/11/23 12:35?? Unknown?? 04/08/23?? Unknown?? Group care resident??? 05/11/23 12:35?? Unknown?? 04/08/23?? Unknown?? status??? 05/11/23 12:35?? Unknown?? 04/08/23?? Unknown? Electronically Signed on 05/11/23 06:59 PM ANRDEW Sequeira Emergency department Discharge instructions * ANDREW Sequeira: PERFORM Event Display: ED Discharge Information Authored Date: [id number] DESIRE SANCHEZ :1995 Age:27 years Sex:Male Visit Date:05/11/2023 Primary Care Physician: JARRELL HOUSER DO Discharge Instructions We would like to thank you for allowing us to assist you with your healthcare needs. The following includes patient education materials and information regarding your injury/illness. Diagnosis from Today's Visit Upper respiratory infection Discharge Vitals Temperature??(Tympanic) 97.5 ??F (36.4 ??C) Heart Rate??(Peripheral) 91 Blood Pressure?? 123/72?? Height?? 70.08 in (178.000 cm) Weight?? 231.52 lb (105.00 kg) BMI?? 33.000 Allergies amoxicillin??(Vomiting symptom) penicillin codeine What to Do Next Instructions from Your Care Team There was no??evidence of any??embolus within your pulmonary vasculature, your CAT scan was normal.??There is no sign of any pneumonia or other concern. ??She continue to utilize supportive care Tylenol and Motrin as needed Follow with your primary care for any further evaluation You Need to Schedule the Following Appointments Follow Up with??Follow-up with your primary care When:??Within 1 week Why: Follow-up with your primary care as needed, they will be able to reevaluate if necessary Return to ED if concerns You were treated today on an emergency [...] Chest pain due to GERD Education Materials Cough, Adult Coughing is a reflex that clears your throat and your airways (respiratory system). Coughing helps to heal and protect your lungs. It is normal to cough occasionally, but a cough that happens with other symptoms or lasts a long time may be a sign of a condition that needs treatment. An acute cough may only last 2???3 weeks, while a chronic cough may last 8 or more weeks. Coughing is commonly caused by: ? Infection of the respiratory systemby viruses or bacteria. ? Breathing in substances that irritate your lungs. ? Allergies. ? Asthma. ? Mucus that runs down the back of your throat (postnasal drip). ? Smoking. ? Acid backing up from the stomach into the esophagus (gastroesophageal reflux). ? Certain medicines. ? Chronic lung problems. ? Other medical conditions such as heart failure or a blood clot in the lung (pulmonary embolism). Follow these instructions at home: Medicines ? Take kcqm-efc-xcilnpp and prescription medicines only as told by your health care provider. ? Talk with your health care provider before you take a cough suppressant medicine. Lifestyle ? Avoid cigarette smoke. Do not use any products that contain nicotine or tobacco, such as cigarettes, e-cigarettes, and chewing tobacco. If you need help quitting, ask your health care provider. ? Drink enough fluid to keep your urine pale yellow. ? Avoid caffeine. ? Do not drink alcohol if your health care provider tells you not to drink. General instructions ? Pay close attention to changes in your cough. Tell your health care provider about them. ? Always cover your mouth when you cough. ? Avoid things that make you cough, such as perfume, candles, cleaning products, or campfire or tobacco smoke. ? If the air is dry, use a cool mist vaporizer or humidifier in your bedroom or your home to help loosen secretions. ? If your cough is worse at night, try to sleep in a semi-upright position. ? Rest as needed. ? Keep all follow-up visits as told by your health care provider. This is important. Contact a health care provider if you: ? Have new symptoms. ? Cough up pus. ? Have a cough that does not get better after 2???3 weeks or gets worse. ? Cannot control your cough with cough suppressant medicines and you are losing sleep. ? Have pain that gets worse or pain that is not helped with medicine. ? Have a fever. ? Have unexplained weight loss. ? Have night sweats. Get help right away if: ? You cough up blood. ? You have difficulty breathing. ? Your heartbeat is very fast. These symptoms may represent a serious problem that is an emergency. Do not wait to see if the symptoms will go away. Get medical help right away. Call your local emergency services (911 in the [place] Do not drive yourself to the hospital. Summary ? Coughing is a reflex that clears your throat and your airways. It is normal to cough occasionally, but a cough that happens with other symptoms or lasts a long time may be a sign of a condition that needs treatment. ? Take shrg-lep-qhyonvp and prescription medicines only as told by your health care provider. ? Always cover your mouth when you cough. ? Contact a health care provider if you have new symptoms or a cough that does not get better after 2???3 weeks or gets worse. This information is not intended to replace advice given to you by your health care provider. Make sure you discuss any questions you have with your health care provider. Document Revised: 06/21/2019 Document Reviewed: 06/21/2019 Elsevier Patient Education ?? 2022 [employer] Tests Performed Radiology CT Angio Chest 05/11/2023 15:38 EST Lab Test Name Test Result Date/Time SARS-CoV or CoV-2 (COVID-19) Ag (Leonora) Negative 05/11/2023 12:35 EST Employed in healthcare? Unknown 05/11/2023 12:35 EST Symptomatic as defined by CDC? Unknown 05/11/2023 12:35 EST Date of onset (Lab) Unknown 05/11/2023 12:35 EST Hospitalized due to COVID-19? Unknown 05/11/2023 12:35 EST In ICU? Unknown 05/11/2023 12:35 EST Group care resident? Unknown 05/11/2023 12:35 EST status? Unknown 05/11/2023 12:35 EST Patient/Insulation Board Coater Operator Signature Patient Name:DESIRE SANCHEZ I have received this information and my questions have been answered. Patient/Insulation Board Coater Operator Name: Patient/Insulation Board Coater Operator Signature: Relationship to Patient: Witness Name/Signature: Date: Electronically Signed on: 05/11/2023 15:43 ESTSigned by:AB Patient Care team information Care Team Personnel Name: JARRELL HOUSER DO Position: No Access Member Role: Primary Care Physician Address: Address: [address] [id number] Name: ANDREW Sequeira Position: Physician Member Role: Physician Camper Assembler Address: Address: [address] [place] [id number] Name: Dian Troncoso Position: Nurse Member Role: ED Nurse Care Team Related Persons Name: ARY SANCHEZ Name: MILLER SANCHEZ
--- OUTSIDE RECORDS SUMMARY | 2023-05-14 12:35 | XMS_ITS | Continuity of Care Document ---
Author Name Unknown Organization [facility] Ambulatory Clinics Address [address] [place] [address] Care Team Providers Care Fire Controlman Name Role Phone JARRELL HOUSER DO Primary Care Physician Encounter [facility] NBR [id number] Date(s): 02/26/23 - 02/26/23 [facility] Ambulatory Clinics [address] [place], [place] [address] Encounter Diagnosis Chest pain(Discharge Diagnosis) - 02/26/23 Shortness of breath(Discharge Diagnosis) - 02/26/23 Chest pain due to GERD(Discharge Diagnosis) - 02/26/23 Chest pain, unspecified(Discharge Diagnosis) - 02/26/23 Discharge Disposition: Home or Self Care Attending Physician: Nadya Gamboa PA-C Allergies, Adverse Reactions, Alerts Substance Reaction Severity [...] Daily, # 30 cap, 0 Refill(s), Pharmacy: [id number], 178, cm, 02/22/23 8:24:00 EDT, Height/Length Dosing, 104.33, kg, 02/22/23 8:24:00 EDT, Weight Dosing Start Date: 02/26/23 Status: Ordered Tums 500 mg oral tablet, [...] 1 Temperature Tympanic [36.6-37.9 Deg C] 3 6.7 Deg C (02/26/23 10:16 AM) Peripheral Pulse Rate [60-100 bpm] 78 bp m (02/26/23 10:16 AM) Respiratory Rate [12-24 br/min] 16 br/mi n (02/26/23 10:16 AM) Blood Pressure [90-140/60-90 mmHg] 123/7 5mmHg (9/13/23 10:16 AM) Social History Social History Type Response Tobacco Never tobacco user T obacco Use:. Sex Patient Care team information Care Team Personnel Name: JARRELL HOUSER DO Position: No Access Member Role: Primary Care Physician Address: Address: [address] [address]- Care Team Related Persons Name: ARY SANCHEZ Name: MILLER SANCHEZ
--- OUTSIDE RECORDS SUMMARY | 2023-05-14 12:35 | XMS_ITS | Continuity of Care Document ---
Author Name Unknown Organization [facility] Address [address] [place] [id number] Care Team Providers Care Vamp Strap Ironer Name Role Phone JARRELL HOUSER DO Primary Care Physician Encounter [facility] NBR [id number] Date(s): 05/06/23 - 05/06/[address] [address] Encounter Diagnosis Adverse drug interaction with prescription medication(Discharge Diagnosis) - 05/06/23 Discharge Disposition: Home or Self Care Attending [...] 6.7 g, 0 Refill(s), 06/02/23 9:14:00 PM COMPANION CAREGIVER, Pharmacy: [facility] #[id number], 177.8, cm, 05/03/23 20:22:00 EST, Height, 104.33, kg, 05/03/23 20:22:00 EST, Weight Dosing Start Date: 05/03/23 Stop Date: 06/02/23 Status: Ordered benzonatate 100 mg oral capsule 100 mg = 1 cap, Oral, TID, PRN as needed for cough, X 7 days, # 21 cap, 0 Refill(s), 05/10/23 8:27:00 PM COMPANION CAREGIVER, Pharmacy: [facility], 177.8, cm, 05/03/23 20:22:00 EST, Height, 104.33, kg, 05/03/23 20:22:00 EST, Weight Dosing Start Date: 05/03/23 Stop Date: 05/10/23 Status: Ordered calcitriol 0.25 mcg oral capsule [...] MUSCLE SPASM Start Date: 04/28/23 Status: Ordered Flexeril 0 Refill(s) Start Date: 05/06/23 Status: Ordered gabapentin 300 mg oral capsule [...] # 30 cap, 0 Refill(s), Pharmacy: [facility] #[facility], 178, cm, 02/28/23 14:26:00 EDT, Height/Length Dosing, 104, kg, 02/28/23 14:26:00 EDT, Weight Dosing Start Date: 02/28/23 Status: Ordered Toradol 0 Refill(s) Start Date: 05/06/23 Status: Ordered Tums 500 mg oral tablet, chewable 500 mg = 1 tab, Chewed, BID, # 60 tab, 0 Refill(s) Start Date: 09/22/22 Status: Ordered Mental Status 11/21/23 Eye Opening Response [place] Spontaneous ly Best Verbal Response Arthur Oriented Best Motor Response Arthur Obeys comman ds [place] Coma Score 15 Problem List Condition Confirmation [...] Parathyroid Completed Results Laboratory List Name Date Glucose POCT 05/06/23 Most recent to oldest [Reference Range]: 1 Glucose POC 94 *NA* (05/06/23 8:47 AM) Vital Signs Most recent to oldest [Reference Range]: 1 Temperature Temporal Artery [36-38 Deg C ] 37 Deg C (05/06/23 7:15 AM) Peripheral Pulse Rate [60-100 bpm] 89 bp m (05/06/23 7:15 AM) Blood Pressure [90-140/60-90 mmHg] 134/9 3mmHg (05/06/23 7:15 AM) Mean Arterial Pressure, Cuff [70-110 mmH g] 107 mmHg (05/06/23 7:15 AM) Weight Dosing 114.00 kg (05/06/23 7:33 AM) Weight Estimated 114.00 kg (05/06/23 7:15 AM) Height 178.000 cm (05/06/23 7:33 AM) Height/Length Estimated 178.000 cm (05/06/23 7:15 AM) Social History Social History Type Response Tobacco Never tobacco user T obacco Use:. Sex Hospital Discharge Instructions Patient Education 05/06/2023 07:41:23 Accidental Drug Poisoning, Adult Accidental Drug Poisoning, Adult Accidental drug poisoning happens when a person accidentally takes too much of a substance, such asa prescription medicine, an hhro-bqh-xrjuszd medicine, a vitamin, a supplement, or an illegal drug.The effects of drug poisoning can be mild, dangerous, or even deadly. What are the causes? This condition is caused by taking too much of a medicine, illegal drug, or other substance. It often results from: ??? Lack of knowledge about a substance. ??? Using more than one substance at the same time. ??? An error made by the health care provider during prescribing or dispensing of the drug. ??? A lapse in memory, such as forgetting that you have already taken a dose of the medicine. ??? Suddenly using a substance after a long period of not using it. The following substances and medicines are more likely to cause an accidental drug poisoning: ??? Medicines that treat mental health conditions (psychotropic medicines). ??? Pain medicines. ??? Cocaine. ??? Heroin. ??? Multivitamins that contain iron. ??? Ajac-kcm-kbqjazc cold and cough medicines. What increases the risk? This condition is more likely to occur in: ??? Aging adults. Aging adults are at risk because they may: ??? Be taking many different medicines. ??? Have difficulty reading labels. ??? Forget when they last took their medicine. ??? People who use illegal drugs. ??? People who drink alcohol while using illegal drugs or certain medicines. ??? People with certain mental health conditions. What are the signs or symptoms? Symptoms of this condition depend on the substance and the amount that was taken. Common symptoms include: ??? Behavior changes, such as confusion. ??? Sleepiness. ??? Weakness. ??? Slowed breathing. ??? Nausea and vomiting. ??? Seizures. ??? Very large or small eye pupil size that does not change in response to changes in light. A drug poisoning can cause a very serious condition in which your blood pressure drops to a low level (shock). Symptoms of shock include: ??? Cold, clammy, or pale skin. ??? Blue lips. ??? Very slow breathing. ??? Extreme sleepiness. ??? Severe confusion. ??? Dizziness or fainting. How is this diagnosed? This condition is diagnosed based on: ??? Your symptoms. You will be asked about the substances you took and when you took them. ??? A physical exam. You may also have tests, including: ??? Urine tests. ??? Blood tests. ??? An electrocardiogram (ECG). How is this treated? This condition may need to be treated right away at the hospital. Treatment may involve: ??? Getting fluids and electrolytes through an IV. Electrolytes are salts and minerals in the blood. ??? Having a breathing tube inserted in your airway (endotracheal tube) to help you breathe. ??? Taking or receiving medicines. These may include medicines that: ??? Absorb any substance that is in your digestive system. ??? Block or reverse the effect of the substance that caused the drug poisoning. ??? Having your blood filtered through an artificial kidney machine (hemodialysis). ??? Ongoing counseling and mental health support. This may be provided if you used an illegal drug. Follow these instructions at home: Medicines ??? Take kmfx-qzz-mlqdcwp and prescription medicines only as told by your health care provider. ??? Before taking a new medicine, ask your health care provider whether the medicine: ??? May cause side effects. ??? Might react with other medicines. ??? Keep a list of all the medicines that you take, including rbiw-igq-tlyexta medicines, vitamins,supplements, and herbs. Bring this list with you to all of your medical visits. General instructions ??? Drink enough fluid to keep your urine pale yellow. ??? If you are working with a counselor or mental health professional, make sure to follow instructions given. ??? Do not drink alcohol if: ??? Your health care provider tells you not to drink. ??? You are , may be , or are planning to become . ??? If you drink alcohol: ??? Limit how much you have to: ??? 0???1 drink a day for women. ??? 0???2 drinks a day for men. ??? Know how much alcohol is in your drink. In the [place] one drink equals one 12 oz bottle of beer (355 mL), one 5 oz glass of wine (148 mL), or one 1?? oz glass of hard liquor (44 mL). ??? Keep all follow-up visits. This is important. How is this prevented? Get help if you are struggling with: ??? Alcohol or drug use. ??? Depression or another mental health condition. ??? Keep the phone number of your local poison control center near your phone or on your mobile phone. The hotline of the [place] [employer] of Poison Control Centers is . ??? Read the drug inserts that come with your medicines. ??? Create a system for taking your medicine, such as a pillbox, that will help you avoid taking too much of the medicine. ??? Do not drink alcohol while taking medicines unless your health care provider approves. ??? Do not use illegal drugs. ??? Do not take medicines that are not prescribed for you. Contact a health care provider if: ??? Your symptoms return. ??? You develop new symptoms or side effects after taking a medicine. ??? You have questions about possible drug poisoning. Call your local poison control center at . Get help right away if: ??? You think that you or someone else may have taken too much of a substance. ??? You or someone else are having symptoms of accidental drug poisoning: ??? Behavior changes, such as confusion. ??? Sleepiness. ??? Slowed breathing. ??? Seizures. These symptoms may be an emergency. Get help right away. Call 911. ??? Do not wait to see if the symptoms will go away. ??? Do not drive yourself to the hospital. Summary ??? Accidental drug poisoning happens when a person accidentally takes too much of a substance, such as a prescription medicine, an liki-egy-qfbrlfk medicine, a vitamin, a supplement, or an illegal drug. ??? This condition is diagnosed based on your symptoms and a physical exam. You will be asked to tell your health care provider which substances you took and when you took them. ??? The effects of drug poisoning can be mild, dangerous, or even deadly. ??? This condition may need to be treated right away at the hospital. This information is not intended to replace advice given to you by your health care provider. Make sure you discuss any questions you have with your health care provider. Document Revised: 01/24/2022 Document Reviewed: 01/24/2022 Elsevier Patient Education ?? 2022 [employer] Follow Up Care 05/06/2023 07:15:34 With:JARRELL HOUSER DO Address: [facility] [address] [address]- When:1 week only if needed Physician Emergency department Note * Uday Díaz MD: PERFORM Event Display: ED Note Physician Authored Date: [id number] DESIRE SANCHEZ :1995 Age:27 years Sex:Male Visit Date:05/06/2023 Primary Care Physician: JARRELL HOUSER DO Basic Information Time Seen: Uday Díaz MD / 05/06/2023 07:38 Chief Complaint Pt went to [facility] this AM and received flexeril, toradol and lidocaine patch for pulled muscle in back. Took these meds and his methadone this morning and states i feel like I am drunk History Of Present Illness: 27-year-old male presents the ER complaining of feeling sleepy and??drunk. ??The patient takes 100 mg of methadone daily for??previous opiate abuse.?? He went to [facility] ER this morning for a back injury sustained at work??yesterday. ??He says he was given Toradol, lidocaine patch, and Flexeril. ??Hesays shortly after taking the Flexeril he was driving to work and started to feel sleepy, loopy, and drunk.?? He says he does not feel safe driving and then??comes here for evaluation. ??Otherwise hehas been well. ??No??recent illness or injury other than a back strain yesterday.?? Denies any current drug or alcohol use. ??No history of diabetes.?? He is starting to feel a little better now. Review of Systems: CONSTITUTIONAL:??No fevers or chills. EYES:??No change in vision. ENT:??No sore throat. ??No headache. ??No neck pain. CARDIOVASCULAR:??No chest pain, palpitations or passing out episodes. RESPIRATORY:??No cough, shortness of breath or hemoptysis. GI:??No abdominal pain. ??No nausea, vomiting or diarrhea. :??No change in urination. SKIN:??No rash. NEUROLOGIC:??No focal numbness or weakness. LYMPH:??No swelling. ?? Review of systems otherwise as stated in HPI Physical Exam Vitals & Measurements T:??37?C ??(Temporal Artery)?? HR:??89??(Peripheral)?? BP:??134/93?? SpO2:??95%?? HT:??178.000??cm?? WT:??114.00??kg??(Estimated)?? O2 Therapy:??Room air?? GENERAL:??Sleepy but easily spontaneously arousable. ??No acute distress. HEENT:??Normocephalic, atraumatic. ??Mucous membranes are moist. NECK:??Supple. ??Nontender. HEART:??Regular rate and rhythm. ??S1 and S2. LUNGS:??Clear to auscultation bilaterally. ??No respiratory distress. ABDOMEN:??Soft, nontender, nondistended. BACK:??Normal to inspection and nontender. EXTREMITIES:??Nontender and without edema. NEUROLOGIC:??Awake, sleepy but easily arousable and oriented x3. ??Motor 5 out of 5 in all extremities. ??Sensation intact to light touch throughout. SKIN:??Warm and dry. VASCULAR:??Radial 2+ bilaterally. Medical Decision Making: Adverse medication??reaction. ??Patient takes methadone chronically and was given Flexeril this morning. ??His symptoms are likely due to the combination of medications making him feel sleepy??due toadditive sedative effects.?? No evidence for alternate acute process. ??Fingerstick blood sugar within normal limits. ??Normal neurologic exam otherwise.?? No indication for additional work- up??at this point. ??He is feeling better??after a period of observation. ??He was given a snack and??a Coke and??feels safe to drive at this point. ??He will go back home??and rest for the day, follow-up withprimary care as needed, return if worse. Procedure No Qualifying Data Assessment/Plan 1.??Adverse drug interaction with prescription medication??T50.905A Orders: Blood Glucose POC - Interfaced, 05/06/23 8:06:00 EST, Once, Stop date 05/06/23 8:06:00 EST Discharge Patient, 05/06/23 8:41:00 EST Patient Education Accidental Drug Poisoning, Adult Follow Up With When Contact Information JARRELL HOUESR DO Within 1 week, only if needed [facility] [address] [place] [address]- Additional Instructions: Medication Reconciliation Unchanged acetaminophen (acetaminophen 325 mg oral capsule)1 Capsules Oral (given by mouth) every 4 hours as needed as needed for fever. ?? albuterol (Albuterol (Eqv-ProAir HFA) 90 mcg/inh inhalation aerosol)2 Puffs Inhale (breathe in) every 6 hours for 30 Days. Refills: 0. ?? benzonatate (benzonatate 100 mg oral capsule)1 Capsules Oral (given by mouth) 3 times a day as needed as needed for cough for 7 Days. Refills: 0. ?? calcitriol (calcitriol 0.25 [...] A DAY NEEDED FOR MUSCLE SPASM. ?? cyclobenzaprine (Flexeril) ?? esomeprazole (NexIUM 20 mg oral delayed release capsule)1 Capsules Oral (given by mouth) every day. ?? gabapentin (gabapentin 300 mg oral capsule)1 Capsules Oral (given by mouth) 2 times a day. ?? ketorolac (Toradol) ?? lidocaine topical (lidocaine 1.8% topical film)1 [...] Unknown. Cause of : Electronically Signed on 05/06/23 08:46 AM Uday Díaz MD Emergency department Discharge instructions * Uday Díaz MD: PERFORM Event Display: ED Discharge Information Authored Date: [id number] DESIRE SANCHEZ :1995 Age:27 years Sex:Male Visit Date:05/06/2023 Primary Care Physician: JARRELL HOUSER DO Discharge Instructions We would like to thank you for allowing us to assist you with your healthcare needs. The following includes patient education materials and information regarding your injury/illness. Diagnosis from Today's Visit Adverse drug interaction with prescription medication Discharge Vitals Temperature??(Temporal Artery) 98.6 ??F (37 ??C) Heart Rate??(Peripheral) 89 Blood Pressure?? 134/93?? Height?? 70.08 in (178.000 cm) Weight??(Estimated) 251.37 lb (114.00 kg) Allergies amoxicillin??(Vomiting symptom) penicillin codeine What to Do Next You Need to Schedule the Following Appointments Follow Up with??JARRELL HOUSER DO When:??Within 1 week, only if needed Where: [facility] [address] [place] [id number]- You were treated today on an emergency [...] Every 6 hours Duration: 30 Days Unchanged benzonatate (benzonatate 100 mg oral capsule) 1 Capsules Oral (given by mouth) 3 times a day as needed for as needed for cough Duration: 7 Days Unchanged calcitriol (calcitriol 0.25 mcg oral [...] DAY NEEDED FOR MUSCLE SPASM ?? Unchanged cyclobenzaprine (Flexeril) Unchanged esomeprazole (NexIUM 20 mg oral delayed release capsule) 1 Capsules Oral (given by mouth) Every day Unchanged gabapentin (gabapentin 300 mg oral capsule) 1 Capsules Oral (given by mouth) 2 times a day Unchanged ketorolac (Toradol) Unchanged lidocaine topical (lidocaine 1.8% topical film) [...] Chest pain due to GERD Education Materials Accidental Drug Poisoning, Adult Accidental drug poisoning happens when a person accidentally takes too much of a substance, such asa prescription medicine, an mxpu-ncw-xlaawrj medicine, a vitamin, a supplement, or an illegal drug.The effects of drug poisoning can be mild, dangerous, or even deadly. What are the causes? This condition is caused by taking too much of a medicine, illegal drug, or other substance. It often results from: ? Lack of knowledge about a substance. ? Using more than one substance at the same time. ? An error made by the health care provider during prescribing or dispensing of the drug. ? A lapse in memory, such as forgetting that you have already taken a dose of the medicine. ? Suddenly using a substance after a long period of not using it. The following substances and medicines are more likely to cause an accidental drug poisoning: ? Medicines that treat mental health conditions (psychotropic medicines). ? Pain medicines. ? Cocaine. ? Heroin. ? Multivitamins that contain iron. ? Lcwo-mov-mhekekr cold and cough medicines. What increases the risk? This condition is more likely to occur in: ? Aging adults. Aging adults are at risk because they may: ? Be taking many different medicines. ? Have difficulty reading labels. ? Forget when they last took their medicine. ? People who use illegal drugs. ? People who drink alcohol while using illegal drugs or certain medicines. ? People with certain mental health conditions. What are the signs or symptoms? Symptoms of this condition depend on the substance and the amount that was taken. Common symptoms include: ? Behavior changes, such as confusion. ? Sleepiness. ? Weakness. ? Slowed breathing. ? Nausea and vomiting. ? Seizures. ? Very large or small eye pupil size that does not change in response to changes in light. A drug poisoning can cause a very serious condition in which your blood pressure drops to a low level (shock). Symptoms of shock include: ? Cold, clammy, or pale skin. ? Blue lips. ? Very slow breathing. ? Extreme sleepiness. ? Severe confusion. ? Dizziness or fainting. How is this diagnosed? This condition is diagnosed based on: ? Your symptoms. You will be asked about the substances you took and when you took them. ? A physical exam. You may also have tests, including: ? Urine tests. ? Blood tests. ? An electrocardiogram (ECG). How is this treated? This condition may need to be treated right away at the hospital. Treatment may involve: ? Getting fluids and electrolytes through an IV. Electrolytes are salts and minerals in the blood. ? Having a breathing tube inserted in your airway (endotracheal tube) to help you breathe. ? Taking or receiving medicines. These may include medicines that: ? Absorb any substance that is in your digestive system. ? Block or reverse the effect of the substance that caused the drug poisoning. ? Having your blood filtered through an artificial kidney machine (hemodialysis). ? Ongoing counseling and mental health support. This may be provided if you used an illegal drug. Follow these instructions at home: Medicines ? Take sjra-vnx-pnilitm and prescription medicines only as told by your health care provider. ? Before taking a new medicine, ask your health care provider whether the medicine: ? May cause side effects. ? Might react with other medicines. ? Keep a list of all the medicines that you take, including oove-mwr-fywtnuw medicines, vitamins, supplements, and herbs. Bring this list with you to all of your medical visits. General instructions ? Drink enough fluid to keep your urine pale yellow. ? If you are working with a counselor or mental health professional, make sure to follow instructionsgiven. ? Do not drink alcohol if: ? Your health care provider tells you not to drink. ? You are , may be , or are planning to become . ? If you drink alcohol: ? Limit how much you have to: ? 0???1 drink a day for women. ? 0???2 drinks a day for men. ? Know how much alcohol is in your drink. In the [place] one drink equals one 12 oz bottle of beer (355mL), one 5 oz glass of wine (148 mL), or one 1?? oz glass of hard liquor (44 mL). ? Keep all follow-up visits. This is important. How is this prevented? Get help if you are struggling with: ? Alcohol or drug use. ? Depression or another mental health condition. ? Keep the phone number of your local poison control center near your phone or on your mobile phone. The hotline of the [place] [employer] of Poison Control Centers is . ? Read the drug inserts that come with your medicines. ? Create a system for taking your medicine, such as a pillbox, that will help you avoid taking too much of the medicine. ? Do not drink alcohol while taking medicines unless your health care provider approves. ? Do not use illegal drugs. ? Do not take medicines that are not prescribed for you. Contact a health care provider if: ? Your symptoms return. ? You develop new symptoms or side effects after taking a medicine. ? You have questions about possible drug poisoning. Call your local poison control center at . Get help right away if: ? You think that you or someone else may have taken too much of a substance. ? You or someone else are having symptoms of accidental drug poisoning: ? Behavior changes, such as confusion. ? Sleepiness. ? Slowed breathing. ? Seizures. These symptoms may be an emergency. Get help right away. Call 911. ? Do not wait to see if the symptoms will go away. ? Do not drive yourself to the hospital. Summary ? Accidental drug poisoning happens when a person accidentally takes too much of a substance, such asa prescription medicine, an zduz-fag-odpjhnn medicine, a vitamin, a supplement, or an illegal drug. ? This condition is diagnosed based on your symptoms and a physical exam. You will be asked to tell your health care provider which substances you took and when you took them. ? The effects of drug poisoning can be mild, dangerous, or even deadly. ? This condition may need to be treated right away at the hospital. This information is not intended to replace advice given to you by your health care provider. Make sure you discuss any questions you have with your health care provider. Document Revised: 01/24/2022 Document Reviewed: 01/24/2022 Elsevier Patient Education ?? 2022 [employer] Patient/Documentation Specialist Signature Patient Name:LAURADESIRE I have received this information and my questions have been answered. Patient/Documentation Specialist Name: Patient/Documentation Specialist Signature: Relationship to Patient: Witness Name/Signature: Date: Electronically Signed on: 05/06/2023 08:41 ESTSigned by: Patient Care team information Care Team Personnel Name: JARRELL HOUSER DO Position: No Access Member Role: Primary Care Physician Address: Address: [address] [address]- Name: Uday Díaz MD Position: Physician Member Role: ED Physician Address: Address: [address] [place] [address] Name: Dinorah Muñoz Position: Nurse Member Role: Registered Nurse Care Team Related Persons Name: ARY SANCHEZ Name: MILLER SANCHEZ
--- OUTSIDE RECORDS SUMMARY | 2023-05-14 12:35 | XMS_ITS | Continuity of Care Document ---
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 Name Role Phone JARRELL HOUSER DO Primary Care Physician Encounter [facility] NBR [phone] Date(s): 08/26/22 - 08/26/[address] [phone] [phone] Encounter Diagnosis Atypical chest pain(Discharge Diagnosis) - 08/26/22 Discharge Disposition: Home or Self Care Attending Physician: Berto Davis MD Admitting Physician: Berto Davis MD Allergies, Adverse Reactions, Alerts Substance Reaction Severity Status codeine Unknown Active amoxicillin Vomiting symptom Moderate Active Functional Status 08/26/22 Other exposure to Infectious Disease Non e Medications calcitriol 0.25 mcg oral capsule 0.5, Oral, BID, TAKE ONE CAPSULE BY MOUTH EVERY DAY Start Date: 06/22/22 Status: Ordered doxycycline hyclate 100 mg oral capsule 100 mg = 1 cap, Oral, BID, # 20 cap, 0 Refill(s), Pharmacy: [id number], 178, cm, 06/22/22 16:30:00 EST, Height/Length [...] Results Laboratory List Name Date Automated Diff 08/26/22 BNP 08/26/22 CBC w/ Diff 08/26/22 Comprehensive Metabolic Panel (CMP) 08/26 D-Dimer 08/26/22 Lipase Level 08/26/22 Troponin-I 08/26/22 Most recent to oldest [Reference Range]: 1 WBC [4.8-10.8 K/mcL] 9.2 K/mcL (08/26/22 7:43 AM) RBC [4.20-6.10 Million/mcL] 3.87 Million /mcL *LOW* (08/26/22 7:43 AM) Neutro Auto [42.2-75.2 %] 65.8 % (08/26/22 7:43 AM) Lymph Auto [20.5-51.1 %] 22.3 % (08/26/22 7:43 AM) Cowley Auto [1.7-9.3 %] 9.9 % *HI* (08/26/22 7:43 AM) Basophil Auto [0.0-0.8 %] 0.5 % (08/26/22 7:43 AM) BUN [8-26 mg/dL] 12 mg/dL (08/26/22 7:43 AM) Glucose Level [74-106 mg/dL] 119 mg/dL *HI* (08/26/22 7:43 AM) Potassium Level [3.5-5.1 mmol/L] 3.3 mmo l/L *LOW* (08/26/22 7:43 AM) Baso Absolute [0.0-0.2 K/mcL] 0.0 K/mcL (08/26/22 7:43 AM) MCV [80.0-94.0 fL] 92.0 fL (08/26/22 7:43 AM) AST [15-41 IntlUnit/L] 24 IntlUnit/L (08/26/22 7:43 AM) ALT [17-63 IntlUnit/L] 18 IntlUnit/L (08/26/22 7:43 AM) MCHC [32.0-36.0 g/dL] 34.3 g/dL (08/26/22 7:43 AM) Osmolality [275-295 mOsm/kg] 269 mOsm/kg *LOW* (08/26/22 7:43 AM) Troponin-I [<=0.05 ng/mL] 0.01 ng/mL (08/26/22 7:43 AM) Sodium Level [134-143 mmol/L] 134 mmol/L (08/26/22 7:43 AM) Lymph Absolute [1.2-3.4 K/mcL] 2.0 K/mcL (08/26/22 7:43 AM) Hct [42.0-52.0 %] 35.6 % *LOW* (08/26/22 7:43 AM) Lipase Level [18-51 unit/L] 27 unit/L (08/26/22 7:43 AM) Calcium Level [8.9-10.3 mg/dL] 8.5 mg/dL *LOW* (08/26/22 7:43 AM) Cowley Absolute [0.1-0.6 K/mcL] 0.9 K/mcL *HI* (08/26/22 7:43 AM) Albumin Level [3.5-5.0 g/dL] 3.9 g/dL (08/26/22 7:43 AM) Protein Total [6.5-8.1 g/dL] 8.0 g/dL (08/26/22 7:43 AM) MCH [27.0-31.0 pg] 31.5 pg *HI* (08/26/22 7:43 AM) Neutro Absolute [1.4-6.5 K/mcL] 6.0 K/mc L (08/26/22 7:43 AM) Bilirubin Total [0.2-1.2 mg/dL] 0.5 mg/d L (08/26/22 7:43 AM) Hgb [14.0-18.0 g/dL] 12.2 g/dL *LOW* (08/26/22 7:43 AM) Alk Phos [38-130 IntlUnit/L] 93 IntlUnit /L (08/26/22 7:43 AM) MPV [7.4-10.4 fL] 10.8 fL *HI* (08/26/22 7:43 AM) Platelets [130-400 K/mcL] 277 K/mcL (08/26/22 7:43 AM) CO2 [22-32 mmol/L] 29 mmol/L (08/26/22 7:43 AM) Eos Absolute [0.0-0.2 K/mcL] 0.1 K/mcL (08/26/22 7:43 AM) BNP [<=100 pg/mL] 15 pg/mL (08/26/22 7:43 AM) Chloride Level [98-111 mmol/L] 97 mmol/L *LOW* (08/26/22 7:43 AM) RDW-CV [11.5-14.5 %] 12.0 % (08/26/22 7:43 AM) A/G Ratio 1.0 *NA* (08/26/22 7:43 AM) BUN/Creat Ratio [8.0-20.0] 8.3 (08/26/22 7:43 AM) Globulin 4.1 *NA* (08/26/22 7:43 AM) Imm Gran Absolute 0.04 *NA* (08/26/22 7:43 AM) Imm Gran Auto [0.0-0.5 %] 0.4 % (08/26/22 7:43 AM) Creatinine Level [0.61-1.24 mg/dL] 1.44 mg/dL *HI* (08/26/22 7:43 AM) Anion Gap [3.0-12.0] 8.0 (08/26/22 7:43 AM) D Dimer, (Quant.) [<=500 ng/mL] 316 ng/m L (08/26/22 7:43 AM) Eos, Auto [0.00-3.00 %] 1.10 % (08/26/22 7:43 AM) eGFR CKD-EPI [>=60 mL/min/1.73 m2] 68 mL /min/1.73 m2 (08/26/22 7:43 AM) Radiology Reports * Exam Date Time Procedure Performing Provider Status 08/26/22 8:06 AM XR Chest 1 View [place], Dipti; Auth (Ve rified) Notes: (XR Chest 1 View) Reason For Exam: chest pain XR Chest 1 View EXAM DESCRIPTION: XR Chest 1 View 08/26/2022 INDICATION: CHEST PAIN COMPARISON: 07/31/2022 FINDINGS: Clear lungs with no focal infiltrate or pulmonary edema. Normal cardiomediastinal contour. No significant pleural effusion or pneumothorax. IMPRESSION: No active chest disease. JOB #: [id number] Final Signed by: John Burciaga MD Signed (Electronic Signature): 08/26/2022 8:08 am Vital Signs Most recent to oldest [Reference Range]: 1 2 3 Temperature Temporal Artery [36-38 Deg C] 36.7 Deg C (08/26/22 7:26 AM) Peripheral Pulse Rate [60-100 bpm] 97 bpm (08/26/22 8:00 AM) 99 bpm (08/26/22 7:45 AM) 102 bpm *HI* (08/26/22 7:26 AM) Heart Rate Monitored [60-100 bpm] 96 bpm (08/26/22 8:00 AM) 103 bpm *HI* (08/26/22 7:45 AM) Respiratory Rate [12-24 br/min] 22 br/min (08/26/22 8:00 AM) 16 br/min (08/26/22 7:45 AM) 18 br/min (08/26/22 7:26 AM) Blood Pressure [90-140/60-90 mmHg] 128/84mmHg (08/26/22 8:00 AM) 128/84mmHg (08/26/22 7:45 AM) 150/86mmHg *HI* (08/26/22 7:26 AM) Mean Arterial Pressure Cuff 97 mmHg (08/26/22 8:00 AM) 97 mmHg (08/26/22 7:45 AM) Weight Dosing 97.00 kg (08/26/22 7:42 AM) Weight Estimated 97.00 kg (08/26/22 7:26 AM) Height/Length Dosing 177.000 cm (08/26/22 7:42 AM) Height/Length Estimated 177.000 cm (3/13/23 7:26 AM) Social History Social History Type Response Tobacco Never tobacco user T obacco Use:. Sex Hospital Discharge Instructions Patient Education 08/26/2022 07:53:29 Chest Wall Pain Chest Wall Pain Chest [...] safe for you. General instructions ??? Take [id number] and prescription medicines only as told by [...] provider. Document Revised: 08/17/2021 Document Reviewed: 08/17/2021 [employer] Patient Education ?? 2021 [employer] Physician Emergency department Note * Berto Davis MD: PERFORM Event Display: ED Note Physician Authored Date: [id number] DESIRE SANCHEZ :1995 Age:26 years Sex:Male Visit Date:08/26/2022 Primary Care Physician: JARRELL HOUSER DO Basic Information Time Seen: Berto Davis MD / 08/26/2022 08:19 Chief Complaint pt reports 3 days left chest pain that radiates through left arm. pt also reports lump at left breast for several months History Of Present Illness: Patient states for 3 days he has had pain in the left side of his chest but he thinks is due to a lump in his left breast that has had for several months that is getting worse. ??Next week he is having??a biopsy taken of that area. ??He denies any shortness of breath fever chills cough or any otherproblems.?? He has been seen multiple times for??nonspecific chest pain in the past year Review of Systems: Review of systems negative other than that stated above Physical Exam Vitals & Measurements T:??36.7?C ??(Temporal Artery)?? HR:??97??(Peripheral)?? HR:??96??(Monitored)?? RR:??22?? BP:??128/84?? SpO2:??96%?? HT:??177.000??cm?? WT:??97.00??kg??(Estimated)?? O2 Therapy:??Room air?? Resting SpO2:??96?? General: Alert and oriented, well nourished, no acute distress. Eye: PERRL, EOMI, normal conjunctiva. HENT: Normocephalic,??normal hearing, moist oral mucosa, no scleral icterus, . Neck: Supple, non-tender, no carotid bruits, no JVD, no lymphadenopathy. No rigidity Lungs: Clear to auscultation and percussion, non-labored respiration. Heart: Normal rate, regular rhythm, no murmur, gallop or edema. Abdomen: Soft, non-tender, non-distended, normal bowel sounds, no masses. Musculoskeletal: Normal range of motion and strength, no tenderness or swelling. Skin: Skin is warm, dry and appropriate for ethnicity, there is a little bit of tenderness around the left nipple and there??is some soft??density. ??No erythema of the skin no discharge??but that iswhere he states his??pain??resides from Neurologic: Awake, alert and oriented X4, CN II-XII intact. Psychiatric: Cooperative, appropriate mood and affect. Procedure No Qualifying Data Reexamination/Reevaluation Patient given Toradol pain was decreased. ??He is hemodynamically stable without any findings acutecoronary syndrome. ??He will be??discharged follow-up with regular doctor as previously arranged and return as needed Assessment/Plan 1.??Atypical chest pain??R07.89 Orders: Normal Saline Flush, 10 mL, IV Flush, Injection, As Directed, PRN service line coordinator, First Dose: 08/26/22 7:47:00 EDT, Routine Cardiac Monitoring, 08/26/22 7:46:00 EDT, May be off for activity: No Discharge Patient, 08/26/22 8:52:00 EDT Patient Education Chest Wall Pain Medication Reconciliation Unchanged calcitriol (calcitriol 0.25 mcg [...] a dayfor 10 Days. Refills: 0. ?? [id number] Oral (given by mouth) 3 times a day. ?? levothyroxine (levothyroxine 25 mcg (0.025 mg) oral capsule)1 Capsules Oral (given by mouth) every day. ?? methadone (methadone 5 mg oral tablet)110 Milligrams Oral (given by mouth) every day as needed as needed for pain. Problem List/Past Medical History Ongoing No qualifying data Historical No qualifying data Medication Administration Given Toradol, 30 mg, IV Allergies amoxicillin??(Vomiting symptom) codeine Social History Alcohol Past Electronic Cigarette/Vaping Electronic Cigarette Use: Never. Substance Use Past Tobacco Never tobacco user Tobacco Use:. Diagnostic Results XR Chest 1 View 08/26/2022 08:10 EDT XR Chest 1 View ?? 08/26/22 08:08:02 EXAM DESCRIPTION: XR Chest 1 View ?? 08/26/2022 ?? INDICATION: CHEST PAIN ?? COMPARISON: 07/31/2022 ?? FINDINGS: Clear lungs with no focal infiltrate or pulmonary edema. ?? Normal cardiomediastinal contour. ?? No significant pleural effusion or pneumothorax. ?? IMPRESSION: No active chest disease. ? JOB #: [id number] Electronically Signed By: ?? Signed By: John Burciaga MD Lab Results CBC and Differential?? LATEST RESULTS?? HISTORICAL RESULTS?? WBC?? 08/26/22 07:43?? 9.2?? 07/31/22?? 9.6?? RBC?? 08/26/22 07:43?? 3.87 ??Low?? 07/31/22?? 3.55 ??Low?? Hgb?? 08/26/22 07:43?? 12.2 ??Low?? 07/31/22?? 11.2 ??Low?? Hct?? 08/26/22 07:43?? 35.6 ??Low?? 07/31/22?? 32.5 ??Low?? MCV?? 08/26/22 07:43?? 92.0?? 07/31/22?? 91.5?? MCH?? 08/26/22 07:43?? 31.5 ??High?? 07/31/22?? 31.5 ??High?? MCHC?? 08/26/22 07:43?? 34.3?? 07/31/22?? 34.5?? RDW-CV?? 08/26/22 07:43?? 12.0?? 07/31/22?? 11.7?? Platelets?? 08/26/22 07:43?? 277?? 07/31/22?? 300?? MPV?? 08/26/22 07:43?? 10.8 ??High?? 07/31/22?? 10.4?? Neutro Auto?? 08/26/22 07:43?? 65.8?? 07/31/22?? 75.9 ??High?? Lymph Auto?? 08/26/22 07:43?? 22.3?? 07/31/22?? 15.3 ??Low?? Cowley Auto?? 08/26/22 07:43?? 9.9 ??High?? 07/31/22?? 7.4?? Eos, Auto?? 08/26/22 07:43?? 1.10?? 07/31/22?? 0.70?? Basophil Auto?? 08/26/22 07:43?? 0.5?? 07/31/22?? 0.4?? Imm Gran Auto?? 08/26/22 07:43?? 0.4?? 07/31/22?? 0.3?? Neutro Absolute?? 08/26/22 07:43?? 6.0?? 07/31/22?? 7.3 ??High?? Lymph Absolute?? 08/26/22 07:43?? 2.0?? 07/31/22?? 1.5?? Cowley Absolute?? 08/26/22 07:43?? 0.9 ??High?? 07/31/22?? 0.7 ??High?? Eos Absolute?? 08/26/22 07:43?? 0.1?? 07/31/22?? 0.1?? Baso Absolute?? 08/26/22 07:43?? 0.0?? 07/31/22?? 0.0?? Imm Gran Absolute?? 08/26/22 07:43?? 0.04?? 07/31/22?? 0.03? Coagulation?? LATEST RESULTS?? HISTORICAL RESULTS?? D Dimer, (Quant.)?? 08/26/22 07:43?? 316?? 07/12/22?? 457? Routine Chemistry?? LATEST RESULTS?? HISTORICAL RESULTS?? Sodium Level?? 08/26/22 07:43?? 134?? 07/31/22?? 135?? Potassium Level?? 08/26/22 07:43?? 3.3 ??Low?? 07/31/22?? 3.7?? Chloride Level?? 08/26/22 07:43?? 97 ??Low?? 07/31/22?? 98?? CO2?? 08/26/22 07:43?? 29?? 07/31/22?? 31?? Alk Phos?? 08/26/22 07:43?? 93?? 07/31/22?? 67?? AST?? 08/26/22 07:43?? 24?? 07/31/22?? 41?? ALT?? 08/26/22 07:43?? 18?? 07/31/22?? 52?? BUN?? 08/26/22 07:43?? 12?? 07/31/22?? 20?? Glucose Level?? 08/26/22 07:43?? 119 ??High?? 07/31/22?? 101?? Creatinine Level?? 08/26/22 07:43?? 1.44 ??High?? 07/31/22?? 1.95 ??High?? BUN/Creat Ratio?? 08/26/22 07:43?? 8.3?? 07/31/22?? 10.3?? Calcium Level?? 08/26/22 07:43?? 8.5 ??Low?? 07/31/22?? 9.3?? Protein Total?? 08/26/22 07:43?? 8.0?? 07/31/22?? 7.0?? Albumin Level?? 08/26/22 07:43?? 3.9?? 07/31/22?? 3.5?? Globulin?? 08/26/22 07:43?? 4.1?? 07/31/22?? 3.5?? A/G Ratio?? 08/26/22 07:43?? 1.0?? 07/31/22?? 1.0?? Bilirubin Total?? 08/26/22 07:43?? 0.5?? 07/31/22?? 0.5?? Anion Gap?? 08/26/22 07:43?? 8.0?? 07/31/22?? 6.0?? Lipase Level?? 08/26/22 07:43?? 27?? 07/12/22?? 29?? Osmolality?? 08/26/22 07:43?? 269 ??Low?? 07/31/22?? 273 ??Low?? eGFR CKD-EPI?? 08/26/22 07:43?? 68?? 07/31/22?? 47 ??Low? Cardiac Isoenzymes?? LATEST RESULTS?? HISTORICAL RESULTS?? Troponin-I?? 08/26/22 07:43?? 0.01?? 07/31/22?? 0.01?? BNP?? 08/26/22 07:43?? 15? Electronically Signed on 08/26/22 08:54 AM Berto Davis MD Emergency department Discharge instructions * Berto Davis MD: PERFORM Event Display: ED Discharge Information Authored Date: [id number] DESIRE SANCHEZ :1995 Age:26 years Sex:Male Visit Date:08/26/2022 Primary Care Physician: JARRELL HOUSER DO Discharge Instructions We would like to thank you for allowing us to assist you with your healthcare needs. The following includes patient education materials and information regarding your injury/illness. Diagnosis from Today's Visit Atypical chest pain Discharge Vitals Temperature??(Temporal Artery) 98.1 ??F (36.7 ??C) Heart Rate??(Peripheral) 97 Heart Rate??(Monitored) 96 Respiratory Rate?? 22 Blood Pressure?? 128/84?? Height?? 69.69 in (177.000 cm) Weight??(Estimated) 213.89 lb (97.00 kg) Allergies amoxicillin??(Vomiting symptom) codeine What to Do Next Instructions from Your Care Team Follow-up with regular doctor return as needed You were treated today on an [...] for as needed for pain Education Materials Chest Wall Pain Chest wall [...] safe for you. General instructions ? Take kdpy-kvn-[id number] and prescription medicines only as told by [...] provider. Document Revised: 08/17/2021 Document Reviewed: 08/17/2021 [employer] Patient Education ?? 2021 [employer] Tests Performed Radiology XR Chest 1 View 08/26/2022 08:10 EDT Medications and Immunizations Administered Given Toradol, 30 mg, IV Lab Test Name Test Result Date/Time WBC 9.2 K/mcL 08/26/2022 07:43 EDT RBC 3.87 Million/mcL 08/26/2022 07:43 EDT Hgb 12.2 g/dL 08/26/2022 07:43 EDT Hct 35.6 % 08/26/2022 07:43 EDT MCV 92.0 fL 08/26/2022 07:43 EDT MCH 31.5 pg 08/26/2022 07:43 EDT MCHC 34.3 g/dL 08/26/2022 07:43 EDT RDW-CV 12.0 % 08/26/2022 07:43 EDT Platelets 277 K/mcL 08/26/2022 07:43 EDT MPV 10.8 fL 08/26/2022 07:43 EDT Neutro Auto 65.8 % 08/26/2022 07:43 EDT Lymph Auto 22.3 % 08/26/2022 07:43 EDT Cowley Auto 9.9 % 08/26/2022 07:43 EDT Eos, Auto 1.10 % 08/26/2022 07:43 EDT Basophil Auto 0.5 % 08/26/2022 07:43 EDT Imm Gran Auto 0.4 % 08/26/2022 07:43 EDT Neutro Absolute 6.0 K/mcL 08/26/2022 07:43 EDT Lymph Absolute 2.0 K/mcL 08/26/2022 07:43 EDT Cowley Absolute 0.9 K/mcL 08/26/2022 07:43 EDT Eos Absolute 0.1 K/mcL 08/26/2022 07:43 EDT Baso Absolute 0.0 K/mcL 08/26/2022 07:43 EDT Imm Gran Absolute 0.04 08/26/2022 07:43 EDT D Dimer, (Quant.) 316 ng/mL 08/26/2022 07:43 EDT Sodium Level 134 mmol/L 08/26/2022 07:43 EDT Potassium Level 3.3 mmol/L 08/26/2022 07:43 EDT Chloride Level 97 mmol/L 08/26/2022 07:43 EDT CO2 29 mmol/L 08/26/2022 07:43 EDT Alk Phos 93 IntlUnit/L 08/26/2022 07:43 EDT AST 24 IntlUnit/L 08/26/2022 07:43 EDT ALT 18 IntlUnit/L 08/26/2022 07:43 EDT BUN 12 mg/dL 08/26/2022 07:43 EDT Glucose Level 119 mg/dL 08/26/2022 07:43 EDT Creatinine Level 1.44 mg/dL 08/26/2022 07:43 EDT BUN/Creat Ratio 8.3 08/26/2022 07:43 EDT Calcium Level 8.5 mg/dL 08/26/2022 07:43 EDT Protein Total 8.0 g/dL 08/26/2022 07:43 EDT Albumin Level 3.9 g/dL 08/26/2022 07:43 EDT Globulin 4.1 08/26/2022 07:43 EDT A/G Ratio 1.0 08/26/2022 07:43 EDT Bilirubin Total 0.5 mg/dL 08/26/2022 07:43 EDT Anion Gap 8.0 08/26/2022 07:43 EDT Lipase Level 27 unit/L 08/26/2022 07:43 EDT Osmolality 269 mOsm/kg 08/26/2022 07:43 EDT eGFR CKD-EPI 68 mL/min/1.73 m2 08/26/2022 07:43 EDT Troponin-I 0.01 ng/mL 08/26/2022 07:43 EDT BNP 15 pg/mL 08/26/2022 07:43 EDT Patient/Braid Folder Signature Patient Name:DESIRE SANCHEZ I have received this information and my questions have been answered. Patient/Braid Folder Name: Patient/Braid Folder Signature: Relationship to Patient: Witness Name/Signature: Date: Electronically Signed on: 08/26/2022 08:53 EDTSigned by:AFB XR Chest Single view * John Burciaga MD: VERIFY, VERIFY Event Display: Report EXAM DESCRIPTION: XR Chest 1 View 08/26/2022 INDICATION: CHEST PAIN COMPARISON: 07/31/2022 FINDINGS: Clear lungs with no focal infiltrate or pulmonary edema. Normal cardiomediastinal contour. No significant pleural effusion or pneumothorax. IMPRESSION: No active chest disease. JOB #: [id number] Final Signed by: John Burciaga MD Signed (Electronic Signature): 08/26/2022 8:08 am Patient Care team information Care Team Personnel Name: JARRELL HOUSER DO Position: No Access Member Role: Primary Care Physician Address: Address: [address] [address] Name: Berto Davis MD Position: Physician Member Role: ED Physician Address: Address: [address] [place] [phone] [place] Name: Christina Cruz I Position: Nurse Member Role: ED Nurse Care Team Related Persons Name: MILLER SANCHEZ
--- OUTSIDE RECORDS SUMMARY | 2023-05-14 12:35 | XMS_ITS | Continuity of Care Document ---
Author Name Unknown Organization [facility] Address [address] [place] [address] Care Team Providers Care Bacteriology Research Assistant Name Role Phone JARRELL HOUSER DO Primary Care Physician Encounter LTTL_CO FIN NBR [id number] Date(s): 07/12/22 - 07/12/[address] [address] [place] Encounter Diagnosis Chest pain(Discharge Diagnosis) - 07/12/22 Skin lump of arm(Discharge Diagnosis) - 07/12/22 Discharge Disposition: Home f/u External Provider Attending Physician: Uday Díaz MD Admitting Physician: Udya Díaz MD Allergies, Adverse Reactions, Alerts Substance Reaction Severity Status codeine Unknown Active amoxicillin Vomiting symptom Moderate Active Functional Status 07/12/22 Family Member Travel History No recent t ravel Recent Travel History No recent travel Other exposure to Infectious Disease Non e Medications calcitriol 0.25 mcg oral capsule 0.5, Oral, BID, TAKE ONE CAPSULE BY MOUTH EVERY DAY Start Date: 06/22/22 Status: Ordered doxycycline hyclate 100 mg oral capsule 100 mg = 1 cap, Oral, BID, # 20 cap, 0 Refill(s), Pharmacy: [id number], 178, cm, 06/22/22 16:30:00 EST, Height/Length [...] Status: Ordered Results Laboratory List Name Date CBC w/ Diff 07/12/22 Comprehensive Metabolic Panel (CMP) 07/12 D-Dimer 07/12/22 Lipase Level 07/12/22 Troponin-I 07/12/22 Automated Diff 07/12/22 Most recent to oldest [Reference Range]: 1 WBC [4.8-10.8 K/mcL] 6.9 K/mcL (07/12/22 8:20 AM) RBC [4.20-6.10 Million/mcL] 3.59 Million /mcL *LOW* (07/12/22 8:20 AM) Neutro Auto [42.2-75.2 %] 46.4 % (07/12/22 8:20 AM) Lymph Auto [20.5-51.1 %] 35.0 % (07/12/22 8:20 AM) [place] Auto [1.7-9.3 %] 12.4 % *HI* (07/12/22 8:20 AM) Basophil Auto [0.0-0.8 %] 0.7 % (07/12/22 8:20 AM) BUN [8-26 mg/dL] 11 mg/dL (07/12/22 8:20 AM) Glucose Level [74-106 mg/dL] 103 mg/dL (07/12/22 8:20 AM) Potassium Level [3.5-5.1 mmol/L] 4.0 mmo l/L (07/12/22 8:20 AM) Baso Absolute [0.0-0.2 K/mcL] 0.0 K/mcL (07/12/22 8:20 AM) MCV [80.0-99.0 fL] 92.5 fL (07/12/22 8:20 AM) AST [15-41 IntlUnit/L] 28 IntlUnit/L (07/12/22 8:20 AM) ALT [17-63 IntlUnit/L] 22 IntlUnit/L (07/12/22 8:20 AM) MCHC [32.0-36.0 g/dL] 34.3 g/dL (07/12/22 8:20 AM) Osmolality [275-295 mOsm/kg] 272 mOsm/kg *LOW* (07/12/22 8:20 AM) Troponin-I [<=0.05 ng/mL] <0.01 ng/mL (07/12/22 8:20 AM) Sodium Level [134-143 mmol/L] 136 mmol/L (07/12/22 8:20 AM) Lymph Absolute [1.2-3.4 K/mcL] 2.4 K/mcL (07/12/22 8:20 AM) Hct [37.0-52.0 %] 33.2 % *LOW* (07/12/22 8:20 AM) Lipase Level [18-51 unit/L] 29 unit/L (07/12/22 8:20 AM) Calcium Level [8.9-10.3 mg/dL] 8.1 mg/dL *LOW* (07/12/22 8:20 AM) [place] Absolute [0.1-0.6 K/mcL] 0.8 K/mcL *HI* (07/12/22 8:20 AM) Albumin Level [3.5-5.0 g/dL] 3.7 g/dL (07/12/22 8:20 AM) Protein Total [6.5-8.1 g/dL] 7.3 g/dL (07/12/22 8:20 AM) MCH [27.0-31.0 pg] 31.8 pg *HI* (07/12/22 8:20 AM) Neutro Absolute [1.4-6.5 K/mcL] 3.2 K/mc L (07/12/22 8:20 AM) Bilirubin Total [0.2-1.2 mg/dL] 0.2 mg/d L (07/12/22 8:20 AM) Hgb [12.0-18.0 g/dL] 11.4 g/dL *LOW* (07/12/22 8:20 AM) Alk Phos [38-130 IntlUnit/L] 69 IntlUnit /L (07/12/22 8:20 AM) MPV [7.4-10.4 fL] 10.4 fL (07/12/22 8:20 AM) Platelets [130-400 K/mcL] 259 K/mcL (07/12/22 8:20 AM) CO2 [22-32 mmol/L] 29 mmol/L (07/12/22 8:20 AM) Eos Absolute [0.0-0.2 K/mcL] 0.4 K/mcL *HI* (07/12/22 8:20 AM) Chloride Level [98-111 mmol/L] 98 mmol/L (07/12/22 8:20 AM) RDW-CV [11.5-14.5 %] 12.0 % (07/12/22 8:20 AM) A/G Ratio 1.0 *NA* (07/12/22 8:20 AM) BUN/Creat Ratio [8.0-20.0] 9.9 (07/12/22 8:20 AM) Globulin 3.6 *NA* (07/12/22 8:20 AM) Imm Gran Absolute 0.03 *NA* (07/12/22 8:20 AM) Imm Gran Auto [0.0-0.5 %] 0.4 % (07/12/22 8:20 AM) Creatinine Level [0.61-1.24 mg/dL] 1.11 mg/dL (07/12/22 8:20 AM) Anion Gap [3.0-12.0] 9.0 (07/12/22 8:20 AM) D Dimer, (Quant.) [<=500 ng/mL] 457 ng/m L (07/12/22 8:20 AM) Eos, Auto [0.00-3.00 %] 5.10 % *HI* (07/12/22 8:20 AM) eGFR CKD-EPI [>=60 mL/min/1.73 m2] 93 mL /min/1.73 m2 (07/12/22 8:20 AM) Radiology Reports * Exam Date Time Procedure Performing Provider Status 07/12/22 8:48 AM XR Chest 2 Views Bobbi Benjamin; Auth ( Verified) Notes: (XR Chest 2 Views) Reason For Exam: chest pain XR Chest 2 Views EXAM DESCRIPTION: XR Chest 2 Views 07/12/2022 INDICATION: CHEST PAIN TECHNIQUE: PA and lateral views of the chest. COMPARISON: 06/22/2022 FINDINGS: The lungs are well expanded and clear with no focal consolidation or pulmonary edema. The cardiomediastinal contour and pleural margins are within normal limits. IMPRESSION: No active chest disease. JOB #: [id number] Final Signed by: John Burciaga MD Signed (Electronic Signature): 07/12/2022 8:54 am Vital Signs Most recent to oldest [Reference Range]: 1 2 3 Temperature Tympanic [36.6-37.9 Deg C] 36.8 Deg C (07/12/22 7:58 AM) Peripheral Pulse Rate [60-100 bpm] 94 bpm (07/12/22 9:00 AM) 109 bpm *HI* (07/12/22 7:58 AM) Heart Rate Monitored [60-100 bpm] 90 bpm (07/12/22 9:30 AM) 96 bpm (07/12/22 9:00 AM) 99 bpm (07/12/22 8:30 AM) Respiratory Rate [12-24 br/min] 20 br/min (07/12/22 7:58 AM) Blood Pressure [90-140/60-90 mmHg] 118/72mmHg (07/12/22 9:30 AM) 112/85mmHg (07/12/22 9:00 AM) 118/67mmHg (07/12/22 8:30 AM) Mean Arterial Pressure, Cuff [65-140 mmHg] 87 mmHg (07/12/22 9:30 AM) 94 mmHg (07/12/22 9:00 AM) 84 mmHg (07/12/22 8:30 AM) Mean Arterial Pressure Cuff 84 mmHg (07/12/22 9:30 AM) 91 mmHg (07/12/22 9:00 AM) 83 mmHg (07/12/22 8:30 AM) Weight Dosing 100.00 kg (07/12/22 8:10 AM) Weight Estimated 100.00 kg (07/12/22 7:58 AM) Height/Length Dosing 177.000 cm (07/12/22 8:10 AM) Height/Length Estimated 177.000 cm (07/12/22 7:58 AM) Social History Social History Type Response Tobacco Never tobacco user T obacco Use:. Sex Hospital Discharge Instructions Patient Education 07/12/2022 08:25:58 Nonspecific Chest Pain, Adult Nonspecific Chest Pain, [...] these instructions at home: Medicines ??? Take [id number] and prescription medicines only as told by [...] Reviewed: 08/16/2021 Elsevier Patient Education ?? 2021 [employer] Follow Up Care 07/12/2022 07:58:35 With:JARRELL HOUSER DO Address: [facility] [address] [place] [id number]- When:1 to 2 weeks Physician Emergency department Note * Uday Díaz MD: PERFORM Event Display: ED Note Physician Authored Date: [id number] LAURA DESIRE :1995 Age:26 years Sex:Male Visit Date:07/12/2022 Primary Care Physician: JARRELL HOUSER DO Basic Information Time Seen: Uday Díaz MD / 07/12/2022 08:15 Chief Complaint patient presents with report of x2 days worth of left sided chest pain into his shoulder. denies taking anything for the discomfort. History Of Present Illness: 26-year-old male presents the ER complaining of chest pain. ??The patient states his pain is actually??coming from his arm where he is felt a lump there for the past few months on the outer portion of his upper arm.?? He feels that this radiates into his chest.?? Area is worse with movement and palpation. ??No warmth, redness, or fevers. ??No numbness or weakness in his arms or legs. ??No falls or injuries.?? 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 ??He??recently was seen by them??and had normal??labs including TSH just a few days ago. ??He has not had thislump in his arm worked up.?? No cough, difficulty breathing, pain or swelling in his legs. Review of Systems: CONSTITUTIONAL:??No fevers or chills. [...] of systems otherwise as stated in HPI ?? Physical Exam Vitals & Measurements T:??36.8?C ??(Tympanic)?? HR:??94??(Peripheral)?? HR:??96??(Monitored)?? RR:??20?? BP:??112/85?? SpO2:??99%?? HT:??177.000??cm?? WT:??100.00??kg??(Estimated)?? Pain Score:??5?? O2 Therapy:??Room air?? GENERAL:??Awake and alert. ??No acute distress. HEENT:??Normocephalic, atraumatic. ??Mucous membranes are moist. NECK:??Supple. ??Nontender. HEART:??Regular rate and rhythm. ??S1 and S2. LUNGS:??Clear to auscultation bilaterally. ??No respiratory distress. ABDOMEN:??Soft, nontender, nondistended. BACK:??Normal to inspection and nontender. EXTREMITIES: Summation of the left upper extremity reveals a slight fullness in the lateral aspect of the upper arm just inferior to the deltoid. ??No erythema, warmth, crepitus, or fluctuance.?? No significant pain with range of motion. ??Radial pulse 2+. ??Motor and sensory intact distally. NEUROLOGIC:??Awake, alert, and oriented x3. ??Motor and sensory grossly intact. SKIN:??Warm and dry. VASCULAR:??Radial 2+ bilaterally. Medical Decision Making: Chest pain with left upper extremity lump. ??The patient has had a lump for the past several months??slowly worsening. 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 ??Bedside ultrasound shows no abnormality identified.?? No indication for x-ray imaging??at this point.?? Regarding his chest pain EKG shows mild sinus tachycardiawithout??injury pattern or arrhythmia and troponin is negative and I have low suspicion for ACS. ??D-dimer is negative making DVT/PE very unlikely.?? No significant electrolyte abnormalities. ??TSH was checked??2 to 3 days ago??and reported as normal by the patient.?? Chest x-ray is negative for pne umothorax or pneumonia.?? Overall??no evidence for??emergency medical condition as a cause for his chest pain. ??I believe he needs further work-up??through his car scrubber and specialist at [facility]??and he will call them for follow- up.?? Also follow-up locally with his primary care. ??Returnfor new or worsening symptoms that were discussed with him. Procedure [id number] ultrasound was performed of the left upper extremity??in the area of question on the lateral aspect of the upper arm just distal to the deltoid.?? No??fluid collection or mass identified??in the area of maximal tenderness. No Qualifying Data Assessment/Plan 1.??Chest pain??R07.9 2.??Skin lump of arm??R22.30 Orders: Discharge Patient, 07/12/22 9:29:00 EST Patient Education Nonspecific Chest Pain, Adult Follow Up With When Contact Information CORRINA AVILA, JARRELL MEYER Within 1 to 2 weeks [facility] [address] [place] [phone]- Additional Instructions: Medication Reconciliation Unchanged calcitriol (calcitriol [...] a dayfor 10 Days. Refills: 0. ?? [id number] Oral (given by mouth) 3 times a day. ?? levothyroxine (levothyroxine 25 mcg (0.025 mg) oral capsule)1 Capsules Oral (given by mouth) every day. ?? methadone (methadone 5 mg oral tablet)110 Milligrams Oral (given by mouth) every day as needed as needed for pain. Problem List/Past Medical History Ongoing No qualifying data Historical No qualifying data Allergies amoxicillin??(Vomiting symptom) codeine Social History Alcohol Past Electronic Cigarette/Vaping Electronic Cigarette Use: Never. Substance Use Past Tobacco Never tobacco user Tobacco Use:. Diagnostic Results XR Chest 2 Views 07/12/2022 08:56 EST XR Chest 2 Views ?? 07/12/22 08:54:10 EXAM DESCRIPTION: XR Chest 2 Views ?? 07/12/2022 ?? INDICATION: CHEST PAIN ?? TECHNIQUE: PA and lateral views of the chest. ?? COMPARISON: 06/22/2022 ?? FINDINGS: The lungs are well expanded and clear with no focal consolidation or pulmonary edema. The cardiomediastinal contour and pleural margins are within normal limits. ?? IMPRESSION: No active chest disease. ? JOB #: [id number] Electronically Signed By: ?? Signed By: John Burciaga MD ECG Sinus tachycardia 109. ??No acute injury pattern or arrhythmia. Lab Results CBC and Differential?? LATEST RESULTS?? HISTORICAL RESULTS?? WBC?? 07/12/22 08:20?? 6.9?? 06/22/22?? 9.3?? RBC?? 07/12/22 08:20?? 3.59 ??Low?? 06/22/22?? 3.62 ??Low?? Hgb?? 07/12/22 08:20?? 11.4 ??Low?? 06/22/22?? 11.3 ??Low?? Hct?? 07/12/22 08:20?? 33.2 ??Low?? 06/22/22?? 33.6 ??Low?? MCV?? 07/12/22 08:20?? 92.5?? 06/22/22?? 92.8?? MCH?? 07/12/22 08:20?? 31.8 ??High?? 06/22/22?? 31.2 ??High?? MCHC?? 07/12/22 08:20?? 34.3?? 06/22/22?? 33.6?? RDW-CV?? 07/12/22 08:20?? 12.0?? 06/22/22?? 12.0?? Platelets?? 07/12/22 08:20?? 259?? 06/22/22?? 340?? MPV?? 07/12/22 08:20?? 10.4?? 06/22/22?? 10.7 ??High?? Neutro Auto?? 07/12/22 08:20?? 46.4?? 06/22/22?? 82.3 ??High?? Lymph Auto?? 07/12/22 08:20?? 35.0?? 06/22/22?? 11.0 ??Low?? [place] Auto?? 07/12/22 08:20?? 12.4 ??High?? 06/22/22?? 5.4?? Eos, Auto?? 07/12/22 08:20?? 5.10 ??High?? 06/22/22?? 0.50?? Basophil Auto?? 07/12/22 08:20?? 0.7?? 06/22/22?? 0.4?? Imm Gran Auto?? 07/12/22 08:20?? 0.4?? 06/22/22?? 0.4?? Neutro Absolute?? 07/12/22 08:20?? 3.2?? 06/22/22?? 7.6 ??High?? Lymph Absolute?? 07/12/22 08:20?? 2.4?? 06/22/22?? 1.0 ??Low?? [place] Absolute?? 07/12/22 08:20?? 0.8 ??High?? 06/22/22?? 0.5?? Eos Absolute?? 07/12/22 08:20?? 0.4 ??High?? 06/22/22?? 0.0?? Baso Absolute?? 07/12/22 08:20?? 0.0?? 06/22/22?? 0.0?? Imm Gran Absolute?? 07/12/22 08:20?? 0.03?? 06/22/22?? 0.04? Coagulation?? LATEST RESULTS?? D Dimer, (Quant.)?? 07/12/22 08:20?? 457? Routine Chemistry?? LATEST RESULTS?? HISTORICAL RESULTS?? Sodium Level?? 07/12/22 08:20?? 136?? 06/22/22?? 136?? Potassium Level?? 07/12/22 08:20?? 4.0?? 06/22/22?? 3.8?? Chloride Level?? 07/12/22 08:20?? 98?? 06/22/22?? 101?? CO2?? 07/12/22 08:20?? 29?? 06/22/22?? 28?? Alk Phos?? 07/12/22 08:20?? 69?? 06/22/22?? 80?? AST?? 07/12/22 08:20?? 28?? 06/22/22?? 24?? ALT?? 07/12/22 08:20?? 22?? 06/22/22?? 18?? BUN?? 07/12/22 08:20?? 11?? 06/22/22?? 17?? Glucose Level?? 07/12/22 08:20?? 103?? 06/22/22?? 134 ??High?? Creatinine Level?? 07/12/22 08:20?? 1.11?? 06/22/22?? 1.41 ??High?? BUN/Creat Ratio?? 07/12/22 08:20?? 9.9?? 06/22/22?? 12.1?? Calcium Level?? 07/12/22 08:20?? 8.1 ??Low?? 06/22/22?? 9.4?? Protein Total?? 07/12/22 08:20?? 7.3?? 06/22/22?? 7.7?? Albumin Level?? 07/12/22 08:20?? 3.7?? 06/22/22?? 3.8?? Globulin?? 07/12/22 08:20?? 3.6?? 06/22/22?? 3.9?? A/G Ratio?? 07/12/22 08:20?? 1.0?? 06/22/22?? 1.0?? Bilirubin Total?? 07/12/22 08:20?? 0.2?? 06/22/22?? 0.4?? Anion Gap?? 07/12/22 08:20?? 9.0?? 06/22/22?? 7.0?? Lipase Level?? 07/12/22 08:20?? 29? Osmolality?? 07/12/22 08:20?? 272 ??Low?? 06/22/22?? 275?? eGFR CKD-EPI?? 07/12/22 08:20?? 93? Cardiac Isoenzymes?? LATEST RESULTS?? HISTORICAL RESULTS?? Troponin-I?? 07/12/22 08:20?? <0.01?? 06/22/22?? <0.01? Electronically Signed on 07/12/22 09:33 AM Uday Díaz MD Emergency department Discharge instructions * Uday Díaz MD: PERFORM Event Display: ED Discharge Information Authored Date: [id number] DESIRE SANCHEZ :1995 Age:26 years Sex:Male Visit Date:07/12/2022 Primary Care Physician: JARRELL HOUSER DO Discharge Instructions We would like to thank you for allowing us to assist you with your healthcare needs. The following includes patient education materials and information regarding your injury/illness. Diagnosis from Today's Visit Chest pain Skin lump of arm Discharge Vitals Temperature??(Tympanic) 98.2 ??F (36.8 ??C) Heart Rate??(Peripheral) 94 Heart Rate??(Monitored) 96 Respiratory Rate?? 20 Blood Pressure?? 112/85?? Height?? 69.69 in (177.000 cm) Weight??(Estimated) 220.50 lb (100.00 kg) Allergies amoxicillin??(Vomiting symptom) codeine What to Do Next You Need to Schedule the Following Appointments Follow Up with??JARRELL HOUSER DO When:??Within 1 to 2 weeks Where: [facility] [address] [place] [id number]- You were treated today on an emergency [...] these instructions at home: Medicines ? Take [id number] and prescription medicines only as told by [...] provider. Document Revised: 08/16/2021 Document Reviewed: 08/16/[address] Patient Education ?? 2021 [employer] Tests Performed Radiology XR Chest 2 Views 07/12/2022 08:56 EST Lab Test Name Test Result Date/Time WBC 6.9 K/mcL 07/12/2022 08:20 EST RBC 3.59 Million/mcL 07/12/2022 08:20 EST Hgb 11.4 g/dL 07/12/2022 08:20 EST Hct 33.2 % 07/12/2022 08:20 EST MCV 92.5 fL 07/12/2022 08:20 EST MCH 31.8 pg 07/12/2022 08:20 EST MCHC 34.3 g/dL 07/12/2022 08:20 EST RDW-CV 12.0 % 07/12/2022 08:20 EST Platelets 259 K/mcL 07/12/2022 08:20 EST MPV 10.4 fL 07/12/2022 08:20 EST Neutro Auto 46.4 % 07/12/2022 08:20 EST Lymph Auto 35.0 % 07/12/2022 08:20 EST [place] Auto 12.4 % 07/12/2022 08:20 EST Eos, Auto 5.10 % 07/12/2022 08:20 EST Basophil Auto 0.7 % 07/12/2022 08:20 EST Imm Gran Auto 0.4 % 07/12/2022 08:20 EST Neutro Absolute 3.2 K/mcL 07/12/2022 08:20 EST Lymph Absolute 2.4 K/mcL 07/12/2022 08:20 EST [place] Absolute 0.8 K/mcL 07/12/2022 08:20 EST Eos Absolute 0.4 K/mcL 07/12/2022 08:20 EST Baso Absolute 0.0 K/mcL 07/12/2022 08:20 EST Imm Gran Absolute 0.03 07/12/2022 08:20 EST D Dimer, (Quant.) 457 ng/mL 07/12/2022 08:20 EST Sodium Level 136 mmol/L 07/12/2022 08:20 EST Potassium Level 4.0 mmol/L 07/12/2022 08:20 EST Chloride Level 98 mmol/L 07/12/2022 08:20 EST CO2 29 mmol/L 07/12/2022 08:20 EST Alk Phos 69 IntlUnit/L 07/12/2022 08:20 EST AST 28 IntlUnit/L 07/12/2022 08:20 EST ALT 22 IntlUnit/L 07/12/2022 08:20 EST BUN 11 mg/dL 07/12/2022 08:20 EST Glucose Level 103 mg/dL 07/12/2022 08:20 EST Creatinine Level 1.11 mg/dL 07/12/2022 08:20 EST BUN/Creat Ratio 9.9 07/12/2022 08:20 EST Calcium Level 8.1 mg/dL 07/12/2022 08:20 EST Protein Total 7.3 g/dL 07/12/2022 08:20 EST Albumin Level 3.7 g/dL 07/12/2022 08:20 EST Globulin 3.6 07/12/2022 08:20 EST A/G Ratio 1.0 07/12/2022 08:20 EST Bilirubin Total 0.2 mg/dL 07/12/2022 08:20 EST Anion Gap 9.0 07/12/2022 08:20 EST Lipase Level 29 unit/L 07/12/2022 08:20 EST Osmolality 272 mOsm/kg 07/12/2022 08:20 EST eGFR CKD-EPI 93 mL/min/1.73 m2 07/12/2022 08:20 EST Troponin-I <0.01 ng/mL 07/12/2022 08:20 EST Patient/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 Patient/Packaging Machine Operator Name: Patient/Packaging Machine Operator Signature: Relationship to Patient: Witness Name/Signature: Date: Electronically Signed on: 07/12/2022 09:29 ESTSigned by:MARILU XR Chest 2 Views * John Burciaga MD: VERIFY, VERIFY Event Display: Report EXAM DESCRIPTION: XR Chest 2 Views 07/12/2022 INDICATION: CHEST PAIN TECHNIQUE: PA and lateral views of the chest. COMPARISON: 06/22/2022 FINDINGS: The lungs are well expanded and clear with no focal consolidation or pulmonary edema. The cardiomediastinal contour and pleural margins are within normal limits. IMPRESSION: No active chest disease. JOB #: [id number] Final Signed by: John Burciaga MD Signed (Electronic Signature): 07/12/2022 8:54 am Patient Care team information Personnel Name: JARRELL HOUSER DO Address: Address: [facility] [address]
--- OUTSIDE RECORDS SUMMARY | 2023-05-14 12:35 | XMS_ITS | Continuity of Care Document ---
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 Name Role Phone JARRELL HOUSER DO Primary Care Physician Encounter LTTL_[place] FIN NBR [id number] Date(s): 03/23/23 - 03/23/23 [facility] [address] [place] [address]- [place] Encounter Diagnosis Acute COVID-19(Discharge Diagnosis) - 03/23/23 Discharge Disposition: Home or Self Care Attending Physician: Bryan Sheldon DO Admitting Physician: Bryan Sheldon DO Allergies, Adverse Reactions, Alerts Substance Reaction Severity Status codeine Unknown Active amoxicillin Vomiting symptom Moderate Active penicillin Moderate Active Assessment and Plan Future Appointments Functional Status 03/23/23 Recent Travel History No recent travel Medications [...] Daily, # 30 cap, 0 Refill(s), Pharmacy: [id number], 178, cm, 02/28/23 14:26:00 EDT, Height/Length Dosing, 104, kg, 02/28/23 14:26:00 EDT, Weight Dosing Start Date: 02/28/23 Status: Ordered ondansetron 4 mg oral tablet, disintegrating 4 mg = 1 tab, Oral, every 8 hr, PRN as needed for nausea/vomiting, # 8 tab, 0 Refill(s), 03/25/23 2:08:00 PM CDT, Pharmacy: [id number], 178, cm, 03/21/23 13:04:00 EDT, Height/Length Dosing, 104, kg, 03/21/23 13:04:00 EDT, Weight Dosing Start Date: 03/21/23 Stop Date: 03/25/23 Status: Ordered Phenergan 12.5 mg oral tablet 12.5 mg = 1 tab, Oral, TID, PRN as needed for nausea/vomiting, X 5 days, # 15 tab, 0 Refill(s), 03/28/23 2:13:00 PM CDT, Pharmacy: [id number], 178, cm, 03/23/23 13:39:00 EDT, Height/Length Dosing, 104, kg, 03/23/23 13:39:00 EDT, Weight Dosing Start Date: 03/23/23 Stop Date: 03/28/23 Status: Ordered Tums 500 mg oral tablet, chewable 500 mg = 1 tab, Chewed, BID, # 60 tab, 0 Refill(s) Start Date: 09/22/22 Status: Ordered Mental Status 03/23/23 Eye Opening Response Arthur Spontaneous ly Best [...] Diagnosis Body Site Status Parathyroid Completed Results Radiology Reports * Exam Date Time Procedure Performing Provider Status 03/23/23 2:09 PM XR Chest 1 View Bobbi Benjamin; Auth (V erified) Notes: (XR Chest 1 View) Reason For Exam: SOB covid positve XR Chest 1 View PROCEDURE INFORMATION: Exam: XR Chest Exam date and time: 03/23/2023 2:06 PM Age: 27 years old Clinical indication: Shortness of breath; Additional info: SOB covid positve TECHNIQUE: Imaging protocol: Radiologic exam of the chest. Views: 1 view. COMPARISON: CR XR CHEST, 2 VIEWS 03/15/2023 9:58 AM FINDINGS: Lungs: The lung beckett are clear. No focal infiltrate. Pleural spaces: No pleural effusion. Heart/Mediastinum: No cardiac enlargement. Bones/joints: There is no acute osseous abnormality. IMPRESSION: No acute findings. THIS DOCUMENT HAS BEEN ELECTRONICALLY SIGNED BY MADDI NI MD on 03/23/2023 02:34 PM Final Signed by: Maddi Ni MD Signed (Electronic Signature): 03/23/2023 2:34 pm Vital Signs Most recent to oldest [Reference Range]: 1 Temperature Temporal Artery [36-38 Deg C ] 37.8 Deg C (03/23/23 1:28 PM) Peripheral Pulse Rate [60-100 bpm] 95 bp m (03/23/23 1:28 PM) Respiratory Rate [12-24 br/min] 18 br/mi n (03/23/23 1:28 PM) Blood Pressure [90-140/60-90 mmHg] 129/7 6mmHg (03/23/23 1:28 PM) Weight Dosing 104.00 kg (03/23/23 1:39 PM) Weight Estimated 104.00 kg (03/23/23 1:28 PM) Height/Length Dosing 178.000 cm (03/23/23 1:39 PM) Height/Length Estimated 178.000 cm (03/23/23 1:28 PM) Social History Social History Type Response Tobacco Never tobacco user T obacco Use:. Sex Hospital Discharge Instructions Patient Education 03/23/2023 14:15:38 COVID-19 COVID-19 COVID-19, or coronavirus disease 2019, [...] managed at home with rest, fluids, and wqsq-tty-snlyihm medicines. ??? Serious symptoms may be treated [...] water are not available, use alcohol-based hand conduit worker. ??? Make sure that all people in [...] managed at home with rest, fluids, and hmkr-vww-oqyrvfw medicines. This information is not intended to replace advice given to you by your health care provider. Make sure you discuss any questions you have with your health care provider. Document Revised: 05/23/2022 Document Reviewed: 05/23/2022 [employer] Patient Education ?? 2022 [employer]. Follow Up Care 03/23/2023 13:28:27 With:Follow-up with your primary care Address: When:1 week Comments:Follow-up with your primary care as needed, they will be able to reevaluate if necessaryReturn to ED if concerns With:Tylenol/Motrin for Pain/Fever Relief Address: When: Unknown Comments:Utilize Motrin 400-600 mg??every 6-8 hours as needed discomfort, Tylenol 1000 mg every 8 hours??as needed Physician Emergency department Note * ANDREW Sequeira: PERFORM Event Display: ED Note Physician Authored Date: [id number] DESIRE SANCHEZ :1995 Age:27 years Sex:Male Visit Date:03/23/2023 Primary Care Physician: JARRELL HOUSER DO Basic Information Time Seen: ANDREW Sequeira / 03/23/2023 13:41 Chief Complaint Pt reports + covid a few days ago, c/o cough congestion and nausea. History Of Present Illness: Patient is a 27-year-old male well-known to us here in the emergency department as he has come in several times over the last several months. ??Patient has a history of gallstones and is awaiting gallbladder surgery. ??He notes that he still continues to have??abdominal??pain and continues to have??occasional vomiting. ??He notes that this is occurring again today.?? He was diagnosed 4 days ago with COVID-19 and??has been feeling worse over that timeframe as opposed to better.?? He notes that he has had??cough, head congestion, vomiting to the point where he is unable to keep foods down and??generalized body aches. ??He has been doing Tylenol and ibuprofen as??directed and??been taking his m ethadone as prescribed. Patient is here for evaluation.?? He was seen here several days ago and given Zofran which she doesnot feel is working. Review of Systems: See HPI for details Physical Exam Vitals & Measurements T:??37.8?C ??(Temporal Artery)?? HR:??95??(Peripheral)?? RR:??18?? BP:??129/76?? SpO2:??97%?? HT:??178.000??cm?? WT:??104.00??kg??(Estimated)?? O2 Therapy:??Room air?? Patient alert oriented age-appropriate well-nourished nontoxic Normocephalic atraumatic Neck supple nontender EOM intact, PERRLA, sclera nonicteric Clear to auscultation bilaterally Regular rate and rhythm no murmurs Abdominal exam reveals normal bowel sounds, negative rebound tenderness, negative psoas sign Appropriate mood and affect Medical Decision Making: While here in the emergency department patient was given??oral??Phenergan as he is able to urinate immediately on arrival and I do not feel that there is an evidence of dehydration.?? Patient is ableto fluid challenge with no acute findings??and??feels significantly better after Phenergan and??rest. ??Patient will ultimately be discharged as below Procedure No Qualifying Data Assessment/Plan 1.??Acute COVID-19??U07.1 I have discussed with the patient that he??is at this time??still experiencing effects of COVID-19 and they will be sometime before he resolves. ??We will give him Phenergan??and he may utilize his Zofran as he sees fit. ??He should continue Tylenol and Motrin as needed and will continue to monitorhis symptoms if there are any questions or concerns, he will return if there is any questions Orders: Phenergan 12.5 mg oral tablet, 12.5 mg = 1 tab, Oral, TID, PRN as needed for nausea/vomiting, X 5 days, # 15 tab, 0 Refill(s), 03/28/23 15:13:00 EDT, Pharmacy: [id number], 178, cm, 03/23/23 13:39:00 EDT, Height/Length Dosing, 104, kg, 03/23/23 13:39:00 EDT, Weight Dosing Discharge Patient, 03/23/23 15:15:00 EDT Patient Education COVID-19 Follow Up With When Contact Information Follow-up with your primary care Within 1 week Additional Instructions: Follow-up with your primary care as needed, they will be able to reevaluate if necessary Return to ED if concerns Tylenol/Motrin for Pain/Fever Relief Additional Instructions: Utilize Motrin 400-600 mg??every 6-8 hours as needed discomfort, Tylenol 1000 mg every 8 hours??as needed Medication Reconciliation New Prescription promethazine (Phenergan 12.5 mg oral tablet)1 tab Oral (given by mouth) 3 times a day as needed as needed for nausea/vomiting for 5 Days. Refills: 0. ?? Unchanged acetaminophen (acetaminophen [...] by mouth) every day. Refills: 0. ?? ondansetron (ondansetron 4 mg oral tablet, disintegrating)1 tab Oral (given by mouth) every 8 hoursas needed as needed for nausea/vomiting. Refills: 0. Problem List/Past Medical History Ongoing [...] abuse Procedure/Surgical History ???Parathyroid Medication Administration Given Phenergan, 12.5 mg, Oral Allergies amoxicillin??(Vomiting symptom) penicillin codeine Social History [...] : Diagnostic Results XR Chest 1 View 03/23/2023 14:34 EDT XR Chest 1 View ?? 03/23/23 14:06:49 PROCEDURE INFORMATION: Exam: XR Chest Exam date and time: 03/23/2023 2:06 PM Age: 27 years old Clinical indication: Shortness of breath; Additional info: SOB covid positve ?? TECHNIQUE: Imaging protocol: Radiologic exam of the chest. Views: 1 view. ?? COMPARISON: CR XR CHEST, 2 VIEWS 03/15/2023 9:58 AM ?? FINDINGS: Lungs: The lung beckett are clear. No focal infiltrate. Pleural spaces: No pleural effusion. Heart/Mediastinum: No cardiac enlargement. Bones/joints: There is no acute osseous abnormality. ?? IMPRESSION: No acute findings. ? THIS DOCUMENT HAS BEEN ELECTRONICALLY SIGNED BY MADDI NI MD on 03/23/2023 02:34 PM ?? Signed By: Maddi Ni MD Electronically Signed on 03/23/23 05:53 PM ANDREW Sequeira Emergency department Discharge instructions * ANDREW Sequeira: PERFORM Event Display: ED Discharge Information Authored Date: [id number] SANCHEZ DESIREJORGE MANRIQUEZ :1995 Age:27 years Sex:Male Visit Date:03/23/2023 Primary Care Physician: JARRELL HOUSER DO Discharge Instructions We would like to thank you for allowing us to assist you with your healthcare needs. The following includes patient education materials and information regarding your injury/illness. Diagnosis from Today's Visit Acute COVID-19 Discharge Vitals Temperature??(Temporal Artery) 100.0 ??F (37.8 ??C) Heart Rate??(Peripheral) 95 Respiratory Rate?? 18 Blood Pressure?? 129/76?? Height?? 70.08 in (178.000 cm) Weight??(Estimated) 229.32 lb (104.00 kg) Allergies amoxicillin??(Vomiting symptom) penicillin codeine What to Do Next You Need to Schedule the Following Appointments Follow Up with??Follow-up with your primary care When:??Within 1 week Why: Follow-up with your primary care as needed, they will be able to reevaluate if necessary Return to ED if concerns Follow Up with??Tylenol/Motrin for Pain/Fever Relief Why: Utilize Motrin 400-600 mg??every 6-8 hours as needed discomfort, Tylenol 1000 mg every 8 hours??as needed Upcoming Scheduled Appointments 2022 9:30 AM EDT ?? Where: [facility] Main OR Status: Confirmed You were [...] Much When Why Instructions Next Dose New promethazine (Phenergan 12.5 mg oral tablet) 1 tab Oral (given by mouth) 3 times a day as needed for as needed for nausea/vomiting Duration: 5 Days Pickup at [email or web address] Unchanged acetaminophen (acetaminophen 325 mg oral [...] breath Chest pain due to GERD Unchanged ondansetron (ondansetron 4 mg oral tablet, disintegrating) 1 tab Oral (given by mouth) Every 8 hours as needed for as needed for nausea/vomiting Pharmacy Information [facility]: [address] [facility] [place] [id number] [phone] Education Materials COVID-19 COVID-19, or coronavirus disease 2019, is [...] managed at home with rest, fluids, and tood-ihj-hanozwc medicines. ? Serious symptoms may be treated [...] water are not available, use alcohol-based hand conduit worker. ? Make sure that all people in [...] managed at home with rest, fluids, and qshb-oni-vxwcvtb medicines. This information is not intended to replace advice given to you by your health care provider. Make sure you discuss any questions you have with your health care provider. Document Revised: 05/23/2022 Document Reviewed: 05/23/2022 Else[employer] Patient Education ?? 2022 [employer] Tests Performed Radiology XR Chest 1 View 03/23/2023 14:34 EDT Medications and Immunizations Administered Given Phenergan, 12.5 mg, Oral Patient/Vp Genetic Signature Patient Name:DESIRE SANCHEZ DECLAN I have received this information and my questions have been answered. Patient/Vp Genetic Name: Patient/Vp Genetic Signature: Relationship to Patient: Witness Name/Signature: Date: Electronically Signed on: 03/23/2023 15:16 EDTSigned by: Patient Care team information Care Team Personnel Name: JARRELL HOUSER DO Position: No Access Member Role: Primary Care Physician Address: Address: [id number] [place] [address] Name: ANDREW Sequeira Position: Physician Member Role: Physician Puttier Address: Address: [address] [place] [id number] Name: Cami Melgar Position: Nurse Member Role: ED Nurse Care Team Related Persons Name: ARY SANCHEZ Name: MILLER SANCHEZ
--- OUTSIDE RECORDS SUMMARY | 2023-05-14 12:35 | XMS_ITS | Continuity of Care Document ---
Author Name Unknown Organization 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.] Exam Date Time Procedure Performing Provider Status 02/26/23 11:06 AM XR Chest 2 Views Jessica Robertson; Alex (Verified) Notes: (XR Chest 2 Views) Reason For Exam: chest pain, shortness of breath XR Chest 2 Views EXAM DESCRIPTION: XR Chest 2 Views 02/26/2023 INDICATION: CHEST PAIN, SHORTNESS OF BREATH COMPARISON: 01/27/2023 FINDINGS: Clear lungs with no focal infiltrate or pulmonary edema. Normal cardiomediastinal contour. Normal pleural margins with no pleural effusion or pneumothorax. Mild thoracic scoliosis which may be positional. IMPRESSION: No active chest disease. JOB #: [id number] Final Signed by: John Burciaga MD Signed (Electronic Signature): 02/26/2023 11:19 am Social History Social History Type Response Tobacco Never tobacco user T obacco Use:. Sex Patient Care team information Care Team Personnel Name: JARRELL HOUSER DO Position: No Access Member Role: Primary Care Physician Address: Address: [facility] [address] [place] [address] Care Team Related Persons Name: ARY SANCHEZ Name: MILLER SANCHEZ
--- OUTSIDE RECORDS SUMMARY | 2023-05-14 12:35 | XMS_ITS | Continuity of Care Document ---
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 Name Role Phone JARRELL HOUSER DO Primary Care Physician Encounter LTTL_MD FIN NBR [id number] Date(s): 01/07/23 - 01/07/23 [facility] [address], [place] [address] Encounter Diagnosis Leg pain, left(Discharge Diagnosis) - 01/07/23 Discharge Disposition: Home f/u Internal Provider Attending Physician: Mariann Mckeon MD Admitting Physician: Mariann Mckeon MD Allergies, Adverse Reactions, Alerts Substance Reaction Severity Status codeine Unknown Active amoxicillin Vomiting symptom Moderate Active penicillin Moderate Active Functional Status 01/07/23 Other exposure to Infectious Disease Non e [...] forms, # 12 cap, 0 Refill(s), Pharmacy: [facility], 178, cm, 12/18/22 13:10:00 EDT, Height/Length [...] Start Date: 09/22/22 Status: Ordered Mental Status 01/07/23 Eye Opening Response [place] Spontaneous ly Best Verbal Response [place] Oriented [...] [36-38 Deg C ] 36.5 Deg C (01/07/23 10:50 PM) Peripheral Pulse Rate [60-100 bpm] 101 b pm *HI* (01/07/23 10:50 PM) Respiratory Rate [12-24 br/min] 20 br/mi n (01/07/23 10:50 PM) Blood Pressure [90-140/60-90 mmHg] 100/8 6mmHg (01/07/23 10:50 PM) Weight Dosing 104.33 kg (01/07/23 11:04 PM) Weight Estimated 104.33 kg (01/07/23 10:50 PM) Height/Length Dosing 177.800 cm (01/07/23 11:04 PM) Height/Length Estimated 177.800 cm (01/07/23 10:50 PM) Social History Social History Type Response Tobacco Never tobacco user T obacco Use:. Sex Hospital Discharge Instructions Patient Education 01/07/2023 22:08:21 Musculoskeletal Pain Musculoskeletal Pain Musculoskeletal pain refers to aches and pains in your bones, joints, muscles, and the tissues thatsurround them. This pain can occur in any part of the body. It can last for a short time (acute) ora long time (chronic). A physical exam, lab tests, [...] that are taken by mouth or applied tothe skin. Take cerf-whv-zmojqrm and prescription medicines only as told by [...] see a physical therapist. This person can helpyou come up with a safe exercise program. [...] see a physical therapist. This person can helpyou come up with a safe exercise program. [...] provider. Document Revised: 10/05/2020 Document Reviewed: 09/13/2020 [employer] Patient Education ?? 2022 [employer]. Follow Up Care 01/07/2023 22:50:11 With:primary care physician Address: When:3 to 5 days Comments:Please return to the radiology department tomorrow morning at 9 AM for an ultrasound of your lower extremity Physician Emergency department Note * Mariann Mckeon MD: PERFORM Event Display: ED Note Physician Authored Date: [id number] DESIRE SANCHEZ :1995 Age:27 years Sex:Male Visit Date:01/07/2023 Primary Care Physician: JARRELL HOUSER DO Basic Information Time Seen: Mariann Mckeon MD / 01/07/2023 22:55 Chief Complaint Left ankle started swelling today at 1630, pain rated 7/10 History Of Present Illness: This patient is a 27-year-old??male with a history of M EN 1 who presents to the emergency department today??for evaluation of??left ankle pain and swelling. ??The patient denies any??injury recentlyto the ankle or foot. ??No direct trauma. ??The patient states that at baseline he has edema in thebilateral lower extremities??although today the pain in the ankle started which was what prompted his visit.?? Patient has not had any fevers or chills.?? He describes a burning type pain in the lower extremity.?? At times he felt like the foot was discolored and a yellow discoloration.?? Patient at baseline does use compression stockings. Review of Systems: Review of systems as stated above Physical Exam Vitals & Measurements T:??36.5?C ??(Temporal Artery)?? HR:??101??(Peripheral)?? RR:??20?? BP:??100/86?? SpO2:??96%?? HT:??177.800??cm?? WT:??104.33??kg??(Estimated)?? Pain Score:??7?? O2 Therapy:??Room air?? GENERAL:??Well appearing in no acute distress??obese male SKIN:??No visible facial rash or cyanosis HENT:??Normocephalic, atraumatic PULMONARY:??The patient is speaking in full sentences. The breathing is nonlabored. They do not appear tachypneic or air hungry. NEUROLOGIC:??Normal speech. Oriented. PSYCHIATRIC:??Normal mood and affect Musculoskeletal: On examination of the??left lower extremity, I do not appreciate any asymmetry compared to the right.?? There is no pitting edema. ??There is no discoloration of the skin. ??No erythema or increased warmth to touch. ??The is a??2+??dorsalis pedis pulse.?? There are no skin lesions a ppreciated.?? All compartments in the lower extremity are soft.?? Bedside ultrasound the??[place] femoral veins are nondistended and easily compressed. Medical Decision Making: This patient is a 27-year-old male with a history of M EN 1??who presents to the emergency department today for evaluation of??left lower extremity swelling and pain. ??The patient noticed??some increased pain at the foot and ankle area??on the left side today. ??In general he states that he has??edema in both lower extremities at baseline. ??He does use compression stockings. ??On today's exam??I do not see any evidence of infection. ??He is able to move the ankle without any restriction.?? There is no overlying erythema or increased warmth to touch. ??He does have a palpable pulse. ??All compartments in the lower extremity are soft.?? I did do a preliminary bedside ultrasound to look for D VT??in the popliteal and femoral areas??and do not see any evidence of DVT at this time. ??However,??we will arrange to have the patient have a formal ultrasound in the morning to ensure??that there is no DVT.?? Otherwise, I think this patient can be safely discharged home. ??I did give him a dose of Toradol before discharge.?? Patient understands to return for a lower extremity ultrasound at 9 AM. Procedure No Qualifying Data Assessment/Plan 1.??Leg pain, left??M79.605 Orders: ketorolac, 15 mg = 1 mL, IM, Vial, Once, First Dose: 01/08/23 0:00:00 EDT, Stop Date: 01/08/23 0:00:00 EDT, Physician Stop US Lower Ext Venous Duplex Left, *Est. 01/08/23 +/- 2 days, Routine, Reason: pain in leg, TransportMode: Ambulatory Patient Education Musculoskeletal Pain Follow Up With When Contact Information primary care physician Within 3 to 5 days Additional Instructions: Please return to the radiology department tomorrow morning at 9 AM for an ultrasound of your lower extremity Medication Reconciliation Unchanged acetaminophen (acetaminophen 325 mg [...] Unknown. Cause of : Electronically Signed on 01/07/23 11:10 PM Mariann Mckeon MD Emergency department Discharge instructions * Mariann Mckeon MD: PERFORM Event Display: ED Discharge Information Authored Date: [id number] DESIRE SANCHEZ :1995 Age:27 years Sex:Male Visit Date:01/07/2023 Primary Care Physician: JARRELL HOUSER DO Discharge Instructions We would like to thank you for allowing us to assist you with your healthcare needs. The following includes patient education materials and information regarding your injury/illness. Diagnosis from Today's Visit Leg pain, left Discharge Vitals Temperature??(Temporal Artery) 97.7 ??F (36.5 ??C) Heart Rate??(Peripheral) 101 Respiratory Rate?? 20 Blood Pressure?? 100/86?? Height?? 70.00 in (177.800 cm) Weight??(Estimated) 230.05 lb (104.33 kg) Allergies amoxicillin??(Vomiting symptom) penicillin codeine What to Do Next You Need to Schedule the Following Appointments Follow Up with??primary care physician When:??Within 3 to 5 days Why: Please return to the radiology department tomorrow morning at 9 AM for an ultrasound of your lower extremity Future Orders US Lower Ext Venous Duplex Left, *Est. 01/08/23 +/- 2 days, Routine, Reason: pain in leg, TransportMode: Ambulatory You were treated today on an emergency [...] for as needed for pain Education Materials Musculoskeletal Pain Musculoskeletal pain refers to aches and pains in your bones, joints, muscles, and the tissues thatsurround them. This pain can occur in any part of the body. It can last for a short time (acute) ora long time (chronic). A physical exam, lab tests, and imaging studies may be done to find the cause of your musculoskeletal pain. Follow these instructions at home: Lifestyle ? Try to control or lower your stress levels. Stress increases muscle tension and can worsen musculoskeletal pain. It is important to recognize when you are anxious or stressed and learn ways to manageit. This may include: ? Meditation or yoga. ? Cognitive or behavioral therapy. ? Acupuncture or massage therapy. ? You may continue all activities unless the activities cause more pain. When the pain gets better, slowly resume your normal activities. Gradually increase the intensity and duration of your activities or exercise. Managing pain, stiffness, and swelling ? Treatment may include medicines for pain and inflammation that are taken by mouth or applied to theskin. Take ueuy-reu-sdbiueo and prescription medicines only as told by your health care provider. ? When your pain is severe, bed rest may be helpful. Lie or sit in any position that is comfortable, but get out of bed and walk around at least every couple of hours. ? If directed, apply heat to the [...] a greater risk of getting burned. ? If directed, put ice on the [...] damage to the area. General instructions ? Your health care provider may recommend that you see a physical therapist. This person can help youcome up with a safe exercise program. ? If told by your health care provider, do physical therapy exercises to improve movement and strength in the affected area. ? Keep all follow-up visits. This is important. This includes any physical therapy visits. Contact a health care provider if: ? Your pain gets worse. ? Medicines do not help ease your pain. ? You cannot use the part of your body that hurts, such as your arm, leg, or neck. ? You have trouble sleeping. ? You have trouble doing your normal activities. Get help right away if: ? You have a new injury and your pain is worse or different. ? You feel numb or you have tingling in the painful area. Summary ? Musculoskeletal pain refers to aches and pains in your bones, joints, muscles, and the tissues thatsurround them. ? This pain can occur in any part of the body. ? Your health care provider may recommend that you see a physical therapist. This person can help youcome up with a safe exercise program. Do any exercises as told by your physical therapist. ? Lower your stress level. Stress can worsen musculoskeletal pain. Ways to lower stress may include meditation, yoga, cognitive or behavioral therapy, acupuncture, and massage therapy. This information is not intended to replace advice given to you by your health care provider. Make sure you discuss any questions you have with your health care provider. Document Revised: 10/05/2020 Document Reviewed: 09/13/2020 [employer] Patient Education ?? 2022 [employer] 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 Name: 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 Signature: Relationship to Patient: Witness Name/Signature: Date: Electronically Signed on: 01/07/2023 23:09 EDTSigned by:AF Patient Care team information Care Team Personnel Name: JARRELL HOUSER DO Position: No Access Member Role: Primary Care Physician Address: Address: [id number] [place] [address] Name: Mariann Mckeon MD Position: Physician Member Role: Attending Physician Address: Address: [address] [place] [address] Name: Sravani Lara Position: Nurse Member Role: Registered Nurse Care Team Related Persons Name: ARY SANCHEZ Address: Home Name: MILLER SANCHEZ Address: Home
--- OUTSIDE RECORDS SUMMARY | 2023-05-14 12:35 | XMS_ITS | Continuity of Care Document ---
Author Name Unknown Organization [facility] Address [address] [place] [id number] Care Team Providers Care Flap Curer Name Role Phone JARRELL HOUSER DO Primary Care Physician Encounter [facility] NBR [id number] Date(s): 04/17/23 - 04/17/[address] [id number]- Encounter Diagnosis Biliary colic(Discharge Diagnosis) - 04/17/23 Calculus of bile duct without cholangitis or cholecystitis without obstruction (Final) - Personal history of other diseases of the digestive system(Final) - Discharge Disposition: Home or Self Care Attending Physician: Mp Knott MD Admitting Physician: Mp Knott MD Allergies, Adverse Reactions, Alerts Substance Reaction Severity Status codeine Unknown Active amoxicillin Vomiting symptom Moderate Active penicillin Moderate Active Functional Status 04/17/23 Other exposure to Infectious Disease Non e [...] Daily, # 30 cap, 0 Refill(s), Pharmacy: [facility], 178, cm, 02/28/23 14:26:00 EDT, Height/Length [...] Start Date: 09/22/22 Status: Ordered Mental Status 04/17/23 Eye Opening Response [place] Spontaneous ly Best Verbal Response [place] Oriented Best Motor Response Arthur Obeys comman ds [place] Coma Score 15 Problem List Condition Confirmation [...] Laboratory List Name Date CBC w/ Diff 04/17/23 Comprehensive Metabolic Panel (CMP) 04/17 Lactic Acid 04/17/23 Lipase Level 04/17/23 Automated Diff 04/17/23 Most recent to oldest [Reference Range]: 1 WBC [4.8-10.8 K/mcL] 5.4 K/mcL (04/17/23 10:07 AM) RBC [4.70-6.10 Million/mcL] 3.75 Million /mcL *LOW* (04/17/23 10:07 AM) Neutro Auto [42.2-75.2 %] 51.1 % (04/17/23 10:07 AM) Lymph Auto [20.5-51.1 %] 30.7 % (04/17/23 10:07 AM) Amelia Auto [1.7-9.3 %] 13.0 % *HI* (04/17/23 10:07 AM) Basophil Auto [0.0-0.8 %] 0.7 % (04/17/23 10:07 AM) BUN [8-26 mg/dL] 17 mg/dL (04/17/23 10:07 AM) Glucose Level [74-106 mg/dL] 90 mg/dL (04/17/23 10:07 AM) Potassium Level [3.5-5.1 mmol/L] 4.2 mmo l/L (04/17/23 10:07 AM) Baso Absolute [0.0-0.2 K/mcL] 0.0 K/mcL (04/17/23 10:07 AM) MCV [80.0-94.0 fL] 94.1 fL *HI* (04/17/23 10:07 AM) AST [15-41 IntlUnit/L] 35 IntlUnit/L (04/17/23 10:07 AM) ALT [17-63 IntlUnit/L] 50 IntlUnit/L (04/17/23 10:07 AM) MCHC [32.0-37.0 g/dL] 33.4 g/dL (04/17/23 10:07 AM) Osmolality [275-295 mOsm/kg] 275 mOsm/kg (04/17/23 10:07 AM) Sodium Level [134-143 mmol/L] 137 mmol/L (04/17/23 10:07 AM) Lymph Absolute [1.2-3.4 K/mcL] 1.6 K/mcL (04/17/23 10:07 AM) Hct [42.0-52.0 %] 35.3 % *LOW* (04/17/23 10:07 AM) Lipase Level [18-51 unit/L] 27 unit/L 1 (04/17/23 10:07 AM) Calcium Level [8.9-10.3 mg/dL] 8.2 mg/dL *LOW* (04/17/23 10:07 AM) Amelia Absolute [0.1-0.6 K/mcL] 0.7 K/mcL *HI* (04/17/23 10:07 AM) Albumin Level [3.5-5.0 g/dL] 3.4 g/dL *LOW* (04/17/23 10:07 AM) Protein Total [6.5-8.1 g/dL] 7.2 g/dL (04/17/23 10:07 AM) MCH [27.0-31.0 pg] 31.5 pg *HI* (04/17/23 10:07 AM) Neutro Absolute [1.4-6.5 K/mcL] 2.7 K/mc L (04/17/23 10:07 AM) Bilirubin Total [0.2-1.2 mg/dL] 0.5 mg/d L (04/17/23 10:07 AM) Hgb [14.0-18.0 g/dL] 11.8 g/dL *LOW* (04/17/23 10:07 AM) Alk Phos [38-130 IntlUnit/L] 92 IntlUnit /L (04/17/23 10:07 AM) MPV [7.4-10.4 fL] 11.4 fL *HI* (04/17/23 10:07 AM) Platelets [130-400 K/mcL] 238 K/mcL (04/17/23 10:07 AM) CO2 [22-32 mmol/L] 28 mmol/L (04/17/23 10:07 AM) Eos Absolute [0.0-0.2 K/mcL] 0.2 K/mcL (04/17/23 10:07 AM) Lactic Acid Lvl [0.5-2.2 mmol/L] 0.9 mmo l/L (04/17/23 10:07 AM) Chloride Level [98-111 mmol/L] 100 mmol/ L (04/17/23 10:07 AM) RDW-CV [11.5-14.5 %] 12.6 % (04/17/23 10:07 AM) A/G Ratio [1.0-2.5 g/dL] 0.9 g/dL *LOW* (04/17/23 10:07 AM) BUN/Creat Ratio [8.0-20.0] 12.6 (04/17/23 10:07 AM) Globulin [2.3-3.5 g/dL] 3.8 g/dL *HI* (04/17/23 10:07 AM) Imm Gran Absolute [0.00-0.02 K/mcL] 0.01 K/mcL (04/17/23 10:07 AM) Imm Gran Auto [0.0-0.5 %] 0.2 % (04/17/23 10:07 AM) Slide Review Not Indicated (04/17/23 10:07 AM) Creatinine Level [0.61-1.24 mg/dL] 1.35 mg/dL *HI* (04/17/23 10:07 AM) Anion Gap [3.0-12.0] 9.0 (04/17/23 10:07 AM) Eos, Auto [0.00-3.00 %] 4.30 % *HI* (04/17/23 10:07 AM) eGFR CKD-EPI [>=60 mL/min/1.73 m2] 73 mL /min/1.73 m2 (04/17/23 10:07 AM) 1Interpretive Data: I-pcxxyc-x-benzoquinone imine (meabolite of Acetaminophen) will generate erroneously low lipase results in samples for patients that have taken toxic doses of acetaminophen. Radiology Reports * Exam Date Time Procedure Performing Provider Status 04/17/23 10:56 AM US Abdomen Limited DomainUser, Genera kayleen; Auth (Verified) Notes: (US Abdomen Limited) Reason For Exam: known GB disease eval for acute process US Abdomen Limited EXAM DESCRIPTION: US Abdomen Limited 04/17/2023 INDICATION: KNOWN GB DISEASE EVAL FOR ACUTE PROCESS TECHNIQUE: Grayscale and color Doppler ultrasound examination of the right upper quadrant region of the abdomen. COMPARISON: 02/13/2023 FINDINGS: Liver measures 18 cm in maximum dimension. No focal hepatic lesion identified. No hepatic surface nodularity or evidence of significant hepatic steatosis. The main portal vein is patent with normal flow direction. Normal gallbladder lumen not identified. Prominent posterior acoustic shadowing from the gallbladder fossa suspicious for stone filled contracted gallbladder. The gallbladder wall is thickened measuring up to 6 mm in thickness. No pericholecystic fluid. No biliary dilatation with common bile duct diameter of 5 mm. Positive sonographic Cedillo sign Pancreas obscured by overlying bowel gas Right kidney measures 10.7 cm in maximum dimension. No focal right renal mass, hydronephrosis or perinephric fluid collection. IMPRESSION: Stone filled contracted gallbladder. Gallbladder wall thickening. No pericholecystic fluid or biliary dilatation. Positive sonographic Cedillo sign Mild hepatomegaly. JOB #: [id number] Final Signed by: John Burciaga MD Signed (Electronic Signature): 04/17/2023 11:24 am Vital Signs Most recent to oldest [Reference Range]: 1 Temperature Oral [35.8-37.3 Deg C] 36.7 Deg C (04/17/23 9:20 AM) Peripheral Pulse Rate [60-100 bpm] 95 bp m (04/17/23 9:20 AM) Respiratory Rate [12-24 br/min] 18 br/mi n (04/17/23 9:20 AM) Blood Pressure [90-140/60-90 mmHg] 110/6 9mmHg (04/17/23 9:20 AM) Mean Arterial Pressure, Cuff [65-140 mmH g] 83 mmHg (04/17/23 9:20 AM) Weight Dosing 106.00 kg (04/17/23 9:58 AM) Weight Estimated 106.00 kg (04/17/23 9:20 AM) Height 178.000 cm (04/17/23 9:58 AM) Height/Length Estimated 178.000 cm (04/17/23 9:20 AM) Social History Social History Type Response Tobacco Never tobacco user T obacco Use:. Sex Hospital Discharge Instructions Patient Education 04/17/2023 11:00:40 Biliary Colic, Adult Biliary Colic, Adult Biliary [...] for a while. General instructions ??? Take uamt-pxv-ubuwcdt and prescription medicines only as told by [...] provider. Document Revised: 06/13/2020 Document Reviewed: 04/04/2020 Elsevier Patient Education ?? 2022 [employer] Follow Up Care 04/17/2023 09:20:05 With:Marlo Urbina MD Address: [facility] [address] [place] [phone]- When:1 month Comments:Contact the office to discuss??scheduling??your surgery at the appropriate timeframe With:Tylenol/Motrin for Pain/Fever Relief Address: When: Unknown Comments:Utilize Motrin 400-600 mg??every 6-8 hours as needed discomfort, Tylenol 1000 mg every 8 hours??as needed Discharge instructions * Event Display: Discharge Instructions Physician Emergency department Note * ANDREW Sequeira: PERFORM Event Display: ED Note Physician Authored Date: [id number] RADHA SANCHEZJORGE MANRIQUEZ :1995 Age:27 years Sex:Male Visit Date:04/17/2023 Primary Care Physician: JARRELL HOUSER DO Basic Information Time Seen: ANDREW Sequeira / 04/17/2023 09:55 Chief Complaint Pt prresents to ED c/o RUQ pain. Pt repots scheduled for surgery 1 month ago I had covid and couldn't get it Increaed pain following sausage mcmuffin today History Of Present Illness: Desire is a 27-year-old male familiar to this emergency department as he has been seen multiple times for his biliary colic.?? He presents once again after yesterday having Burger Min and this morning having a Egg McMuffin??with sausage and having significant right upper quadrant pain.?? He notes that he was at work he became nauseous and his pain??intensified to the point where he had to leave work and come be evaluated.?? Patient unfortunately has had a myriad of setbacks in regards to his cholecystectomy??to include initially a family member with COVID??which canceled his for surgery??and then??him viktoria COVID himself. ??Due to hospital policy he is unable to be rescheduled for 7 weeks. Patient feels as though this is a worse exacerbation than usual notes that prior to these??meal choice??inadequacies he had been doing a low residue low-fat diet??and simply??failed??in that attempt.??He understands that this was??a mistake however he feels he may have exacerbated to the point where he needs to be evaluated once again. Patient continues his normal medications??and is not taking any adjuncts at this time. Patient is??an afebrile??and has not vomited.?? He does note a change in stooling as he is stoolingmore frequently??and having no issues urinating. Review of Systems: See HPI??pertinent review of systems otherwise negative Physical Exam Vitals & Measurements T:??36.7?C ??(Oral)?? HR:??95??(Peripheral)?? RR:??18?? BP:??110/69?? SpO2:??98%?? HT:??178.000??cm?? WT:??106.00??kg??(Estimated)?? Pain Score:??8?? O2 Therapy:??Room air?? Patient is alert oriented age-appropriate mildly obese male in no acute distress Head is normocephalic atraumatic Neck is supple nontender EOM intact, PERRL, sclera anicteric Clear to auscultation Regular rate and rhythm no murmurs Abdomen is soft, bowel sounds present,??right upper quadrant pain??with positive Cedillo sign, negative rebound tenderness, negative ecchymosis or erythema to the abdomen Medical Decision Making: At this time??patient has ultrasound which does reveal once again gallbladder with significant gallstones, no significant biliary dilation but there is some wall thickening. ??There is no pericholecystic fluid I had a discussion with general surgery who will reach out to the patient??and??attempt to??schedule him??in the appropriate timeframe per hospital policy I reached out to Dr. Clement on-call who felt that this was reasonable ?? Patient was given the information for [facility] general surgery as they have a shorter duration of??weight. ??After COVID??has cleared??he will call them if desired He will return to the emergency department for any new or worsening symptoms. Procedure No Qualifying Data Assessment/Plan 1.??Biliary colic??K80.50 Patient be discharged he will get back onto his gallbladder appropriate diet if he has any new or worsening symptoms he will return??he otherwise follow-up with general surgery at his desired location to schedule surgical intervention. ??Patient agrees with discharge plan at this time Orders: Discharge Patient, 04/17/23 11:58:00 EDT Patient Education Biliary Colic, Adult Follow Up With When Contact Information Marlo Urbina MD Within 1 month [facility] [address] [place] [phone]- Additional Instructions: Contact the office to discuss??scheduling??your surgery at the appropriatetimeframe Tylenol/Motrin for Pain/Fever Relief Additional Instructions: Utilize Motrin 400-600 mg??every 6-8 hours as needed discomfort, Tylenol 1000 mg every 8 hours??as needed Medication Reconciliation Unchanged acetaminophen (acetaminophen 325 mg [...] Sodium Chloride 0.9%, 1000 mL, IV Bolus acetaminophen, 1000 mg, Oral Protonix, 40 mg, IV Push Toradol, 15 [...] age: Unknown. Cause of : Diagnostic Results US Abdomen Limited 04/17/2023 11:27 EDT US Abdomen Limited ?? 04/17/23 11:24:41 EXAM DESCRIPTION: US Abdomen Limited ?? 04/17/2023 ?? INDICATION: KNOWN GB DISEASE EVAL FOR ACUTE PROCESS ?? TECHNIQUE: Grayscale and color Doppler ultrasound examination of the right upper quadrant region of the abdomen. ?? COMPARISON: 02/13/2023 ?? FINDINGS: Liver measures 18 cm in maximum dimension. No focal hepatic lesion identified. No hepatic surface nodularity or evidence of significant hepatic steatosis. The main portal vein is patent with normal flow direction. ?? Normal gallbladder lumen not identified. Prominent posterior acoustic shadowing from the gallbladder fossa suspicious for stone filled contracted gallbladder. The gallbladder wall is thickened measuring up to 6 mm in thickness. No pericholecystic fluid. No biliary dilatation with common bile duct diameter of 5 mm. ?? Positive sonographic Cedillo sign ?? Pancreas obscured by overlying bowel gas ?? Right kidney measures 10.7 cm in maximum dimension. No focal right renal mass, hydronephrosis or perinephric fluid collection. ?? IMPRESSION: Stone filled contracted gallbladder. Gallbladder wall thickening. No pericholecystic fluid or biliary dilatation. ?? Positive sonographic Cedillo sign ?? Mild hepatomegaly. ? JOB #: [id number] Electronically Signed By: ?? Signed By: John Burciaga MD Lab Results CBC and Differential?? LATEST RESULTS?? HISTORICAL RESULTS?? WBC?? 04/17/23 10:07?? 5.4?? 04/06/23?? 7.0?? RBC?? 04/17/23 10:07?? 3.75 ??Low?? 04/06/23?? 4.24 ??Low?? Hgb?? 04/17/23 10:07?? 11.8 ??Low?? 04/06/23?? 14.0?? Hct?? 04/17/23 10:07?? 35.3 ??Low?? 04/06/23?? 38.7 ??Low?? MCV?? 04/17/23 10:07?? 94.1 ??High?? 04/06/23?? 91.3?? MCH?? 04/17/23 10:07?? 31.5 ??High?? 04/06/23?? 33.0 ??High?? MCHC?? 04/17/23 10:07?? 33.4?? 04/06/23?? 36.2?? RDW-CV?? 04/17/23 10:07?? 12.6?? 04/06/23?? 12.1?? Platelets?? 04/17/23 10:07?? 238?? 04/06/23?? 336?? MPV?? 04/17/23 10:07?? 11.4 ??High?? 04/06/23?? 11.2 ??High?? Neutro Auto?? 04/17/23 10:07?? 51.1?? 04/06/23?? 58.0?? Lymph Auto?? 04/17/23 10:07?? 30.7?? 04/06/23?? 25.7?? Amelia Auto?? 04/17/23 10:07?? 13.0 ??High?? 04/06/23?? 11.7 ??High?? Eos, Auto?? 04/17/23 10:07?? 4.30 ??High?? 04/06/23?? 3.70 ??High?? Basophil Auto?? 04/17/23 10:07?? 0.7?? 04/06/23?? 0.6?? Imm Gran Auto?? 04/17/23 10:07?? 0.2?? 04/06/23?? 0.3?? Neutro Absolute?? 04/17/23 10:07?? 2.7?? 04/06/23?? 4.1?? Lymph Absolute?? 04/17/23 10:07?? 1.6?? 04/06/23?? 1.8?? Amelia Absolute?? 04/17/23 10:07?? 0.7 ??High?? 04/06/23?? 0.8 ??High?? Eos Absolute?? 04/17/23 10:07?? 0.2?? 04/06/23?? 0.3 ??High?? Baso Absolute?? 04/17/23 10:07?? 0.0?? 04/06/23?? 0.0?? Imm Gran Absolute?? 04/17/23 10:07?? 0.01?? 04/06/23?? 0.02?? Slide Review?? 04/17/23 10:07?? Not Indicated?? 04/06/23?? Not Indicated? Routine Chemistry?? LATEST RESULTS?? HISTORICAL RESULTS?? Sodium Level?? 04/17/23 10:07?? 137?? 04/06/23?? 136?? Potassium Level?? 04/17/23 10:07?? 4.2?? 04/06/23?? 3.6?? Chloride Level?? 04/17/23 10:07?? 100?? 04/06/23?? 99?? CO2?? 04/17/23 10:07?? 28?? 04/06/23?? 29?? Alk Phos?? 04/17/23 10:07?? 92?? 04/06/23?? 85?? AST?? 04/17/23 10:07?? 35?? 04/06/23?? 27?? ALT?? 04/17/23 10:07?? 50?? 04/06/23?? 25?? BUN?? 04/17/23 10:07?? 17?? 04/06/23?? 20?? Glucose Level?? 04/17/23 10:07?? 90?? 04/06/23?? 110 ??High?? Creatinine Level?? 04/17/23 10:07?? 1.35 ??High?? 04/06/23?? 1.32 ??High?? BUN/Creat Ratio?? 04/17/23 10:07?? 12.6?? 04/06/23?? 15.2?? eGFR CKD-EPI?? 04/17/23 10:07?? 73?? 04/06/23?? 75?? Calcium Level?? 04/17/23 10:07?? 8.2 ??Low?? 04/06/23?? 9.0?? Protein Total?? 04/17/23 10:07?? 7.2?? 04/06/23?? 8.1?? Albumin Level?? 04/17/23 10:07?? 3.4 ??Low?? 04/06/23?? 3.9?? Globulin?? 04/17/23 10:07?? 3.8 ??High?? 04/06/23?? 4.2 ??High?? A/G Ratio?? 04/17/23 10:07?? 0.9 ??Low?? 04/06/23?? 0.9 ??Low?? Bilirubin Total?? 04/17/23 10:07?? 0.5?? 04/06/23?? 0.7?? Anion Gap?? 04/17/23 10:07?? 9.0?? 04/06/23?? 8.0?? Lactic Acid Lvl?? 04/17/23 10:07?? 0.9?? 02/22/23?? 0.5?? Lipase Level?? 04/17/23 10:07?? 27?? 04/01/23?? 27?? Osmolality?? 04/17/23 10:07?? 275?? 04/06/23?? 275? Electronically Signed on 04/17/23 01:10 PM ANDREW Sequeira Emergency department Discharge instructions * ANDREW Sequeira: PERFORM Event Display: ED Discharge Information Authored Date: [id number] DESIRE SANCHEZ :1995 Age:27 years Sex:Male Visit Date:04/17/2023 Primary Care Physician: CORRINA AVILA, JARRELL MEYER Discharge Instructions We would like to thank you for allowing us to assist you with your healthcare needs. The following includes patient education materials and information regarding your injury/illness. Diagnosis from Today's Visit Biliary colic Discharge Vitals Temperature??(Oral) 98.1 ??F (36.7 ??C) Heart Rate??(Peripheral) 95 Respiratory Rate?? 18 Blood Pressure?? 110/69?? Height?? 70.08 in (178.000 cm) Weight??(Estimated) 233.73 lb (106.00 kg) Allergies amoxicillin??(Vomiting symptom) penicillin codeine What to Do Next Instructions from Your Care Team Once again your ultrasound does show that you have significant stones within your gallbladder some mild gallbladder wall thickening but no??laboratory of??abnormalities??and therefore this is still??a subacute process. You could call [facility] general surgery at [phone]??they may or may not be able to schedule you sooner for this??procedure if you are able to get to their facility Return to the emergency department for any new or worsening symptoms You Need to Schedule the Following Appointments Follow Up with??Marlo Urbina MD When:??Within 1 month Why: Contact the office to discuss??scheduling??your surgery at the appropriate timeframe Where: [facility] [address] [place] [phone]- Follow Up with??Tylenol/Motrin for Pain/Fever Relief Why: Utilize Motrin 400-600 mg??every 6-8 hours as needed discomfort, Tylenol 1000 mg every 8 hours??as needed You were treated today on an [...] FOR NAUSEA / VOMITING ?? Education Materials Biliary Colic, Adult Biliary colic [...] for a while. General instructions ? Take qbrv-ndd-gumxsaa and prescription medicines only as told by [...] provider. Document Revised: 06/13/2020 Document Reviewed: 04/04/2020 Else[employer] Patient Education ?? 2022 [employer] Tests Performed Radiology US Abdomen Limited 04/17/2023 11:27 EDT Medications and Immunizations Administered Given Sodium Chloride 0.9%, 1000 mL, IV Bolus acetaminophen, 1000 mg, Oral Protonix, 40 mg, IV Push Toradol, 15 mg, IV Push Lab Test Name Test Result Date/Time WBC 5.4 K/mcL 04/17/2023 10:07 EDT RBC 3.75 Million/mcL 04/17/2023 10:07 EDT Hgb 11.8 g/dL 04/17/2023 10:07 EDT Hct 35.3 % 04/17/2023 10:07 EDT MCV 94.1 fL 04/17/2023 10:07 EDT MCH 31.5 pg 04/17/2023 10:07 EDT MCHC 33.4 g/dL 04/17/2023 10:07 EDT RDW-CV 12.6 % 04/17/2023 10:07 EDT Platelets 238 K/mcL 04/17/2023 10:07 EDT MPV 11.4 fL 04/17/2023 10:07 EDT Neutro Auto 51.1 % 04/17/2023 10:07 EDT Lymph Auto 30.7 % 04/17/2023 10:07 EDT Amelia Auto 13.0 % 04/17/2023 10:07 EDT Eos, Auto 4.30 % 04/17/2023 10:07 EDT Basophil Auto 0.7 % 04/17/2023 10:07 EDT Imm Gran Auto 0.2 % 04/17/2023 10:07 EDT Neutro Absolute 2.7 K/mcL 04/17/2023 10:07 EDT Lymph Absolute 1.6 K/mcL 04/17/2023 10:07 EDT Amelia Absolute 0.7 K/mcL 04/17/2023 10:07 EDT Eos Absolute 0.2 K/mcL 04/17/2023 10:07 EDT Baso Absolute 0.0 K/mcL 04/17/2023 10:07 EDT Imm Gran Absolute 0.01 K/mcL 04/17/2023 10:07 EDT Slide Review Not Indicated 04/17/2023 10:07 EDT Sodium Level 137 mmol/L 04/17/2023 10:07 EDT Potassium Level 4.2 mmol/L 04/17/2023 10:07 EDT Chloride Level 100 mmol/L 04/17/2023 10:07 EDT CO2 28 mmol/L 04/17/2023 10:07 EDT Alk Phos 92 IntlUnit/L 04/17/2023 10:07 EDT AST 35 IntlUnit/L 04/17/2023 10:07 EDT ALT 50 IntlUnit/L 04/17/2023 10:07 EDT BUN 17 mg/dL 04/17/2023 10:07 EDT Glucose Level 90 mg/dL 04/17/2023 10:07 EDT Creatinine Level 1.35 mg/dL 04/17/2023 10:07 EDT BUN/Creat Ratio 12.6 04/17/2023 10:07 EDT eGFR CKD-EPI 73 mL/min/1.73 m2 04/17/2023 10:07 EDT Calcium Level 8.2 mg/dL 04/17/2023 10:07 EDT Protein Total 7.2 g/dL 04/17/2023 10:07 EDT Albumin Level 3.4 g/dL 04/17/2023 10:07 EDT Globulin 3.8 g/dL 04/17/2023 10:07 EDT A/G Ratio 0.9 g/dL 04/17/2023 10:07 EDT Bilirubin Total 0.5 mg/dL 04/17/2023 10:07 EDT Anion Gap 9.0 04/17/2023 10:07 EDT Lactic Acid Lvl 0.9 mmol/L 04/17/2023 10:07 EDT Lipase Level 27 unit/L 04/17/2023 10:07 EDT Osmolality 275 mOsm/kg 04/17/2023 10:07 EDT Patient/Drier Signature Patient Name:DESIRE SANCHEZ I have received this information and my questions have been answered. Patient/Drier Name: Patient/Drier Signature: Relationship to Patient: Witness Name/Signature: Date: Electronically Signed on: 04/17/2023 12:01 EDTSigned by:AB Patient Care team information Care Team Personnel Name: JARRELL HOUSER DO Position: No Access Member Role: Primary Care Physician Address: Address: [address] [address] Name: ANDREW Sequeira Position: Physician Member Role: Physician [employer] Management Sales Consultant Address: Address: [address] [place] [phone] Name: Viky Pierce Position: Nurse Member Role: ED Nurse Care Team Related Persons Name: ARY SANCHEZ Name: MILLER SANCHEZ
--- NOTE | 2023-05-14 12:36 | ED.GENADUL_ITS ---
Discharge Plan Disposition Patient Disposition: Home Condition: Good Discharge Details Chief Complaint: Orthopedic Clinical Impression: Brachial plexus neuropathy Primary Care Provider: Brendon Vivar ED Provider: Richy Eagle Home Meds and New Rx's Prescriptions: No Action methadone 10 mg/5 mL solution 100 mg PO QAM magnesium gluconate 27 mg magnesium (500 mg) tablet 27 mg PO BID Qty: 60 3RF clonazepam 1 mg tablet 1 mg PO BID Qty: 56 1RF calcitriol 0.5 mcg capsule 0.5 mcg PO BID Qty: 360 3RF Hold Instructions: Resume on 06/15/22. cyclobenzaprine 10 mg tablet 10 mg PO TID PRN (Reason: muscle spasm) Qty: 30 3RF diclofenac sodium 1 % gel 4 g topical QID Qty: 100 6RF Rx Instructions: apply to single knee, ankle, foot; for foot includes sole/toes/top of foot calcium carbonate [Tums] 200 mg calcium (500 mg) tablet,chewable 2,000 mg PO BID Hold Instructions: Resume on 05/12/23. Please hold your nightly dose tonight and your a.m. dose tomorrow morning. gabapentin 300 mg capsule 300 mg PO BID cefpodoxime 200 mg tablet 200 mg PO Q12H Hold Instructions: Changed by Provider Patient Comments: TAKE ONE TABLET BY MOUTH EVERY 12 HOURS FOR 7 DAYS pantoprazole [Protonix] [address] for susp in packet 40 mg PO DAILY Qty: 30 0RF ondansetron 4 mg tablet,disintegrating 4 mg PO Q8H Qty: 5 0RF Discharge Instructions Additional Instructions: Please perform the neck stretching exercises that we discussed together. Please perform these regularly throughout the day. Please massage the area in your right neck to help loosen the muscles. If you notice any worsening of your symptoms, or any new symptoms such as vomiting, diarrhea, fever, chills, shortness of breath, chest pain, numbness, weakness, or fainting , please return immediately to the emergency department for reevaluation. Please follow up with your primary care provider as soon as possible for reassessment and reevaluation. As always, it was a pleasure participating in your medical care today. Referrals: Brendon Vivar DO [Primary Care Provider] - Medical Decision Making This is a 27-year-old male with a past medical history significant for anxiety, depression, high cholesterol, men type I, multiple electrolyte abnormalities with subsequent parathyroidectomy on 03/26/2022 at [facility] [place], PTSD, GERD who presents today for evaluation of burning sensation in his right forearm. Patient states his symptoms have been present for the last 3 days. It is only present when he side bends his neck to the left significantly, stretches down his shoulder, and extends out his arm. There is then a burning sensation between the middle third and the distal third in his lateral forearm. This is the only time when the sensation is present. He denies any trauma. He does admit to an old distal wrist fracture, but no acute trauma. No other complaints at this time. No chest pain or neck pain otherwise. No other modifying factors. Exam demonstrates a well-appearing male, no focal abnormalities, no neurovascular compromise is. With lower left lateral side bending of the neck, extension of the shoulder, and extension of the arm, this does bring back the patient's symptoms which appear to be neuropathic in nature. Symptoms appear clinically consistent with tension/stress on the brachial plexus, primarily around the C4-C5 region. No midline or generalized neck tenderness whatsoever. Symptoms inconsistent with severe thoracic outlet syndrome. No wasting of the thenar eminence. No evidence of vascular compromise. Suspect strain on the brachial plexus from potential mild first rib elevation, versus mild scalene spasm which would be more likely given his history of muscle spasms, as well as is generally tense muscular disposition. Discussed stretching exercises for the patient. Discussed massage techniques for improving musculature in this area. Discussed red flags for which to return. Patient did not want to wait for paperwork. Patient was discharged home. I have extensively reviewed the treatment plan and discharge instructions with the patient. I have addressed all patient concerns at this time. The patient was made aware of what symptoms to monitor for that would warrant a return to the emergency department. Discussed the plan with the patient, they demonstrate verbal understanding and agreement with our assessment and plan at this time. The documentation in this chart was dictated using [employer] dictation software. Please excuse any dictation errors. HPI General Date/Time Provider Initiated Documentation: 05/14/23 12:19 . HPI Narrative: This is a 27-year-old male with a past medical history significant for anxiety, depression, high cholesterol, men type I, multiple electrolyte abnormalities with subsequent parathyroidectomy on 03/26/2022 at [facility] [place], PTSD, GERD who presents today for evaluation of burning sensation in his right forearm. Patient states his symptoms have been present for the last 3 days. It is only present when he side bends his neck to the left significantly, stretches down his shoulder, and extends out his arm. There is then a burning sensation between the middle third and the distal third in his lateral forearm. This is the only time when the sensation is present. He denies any trauma. He does admit to an old distal wrist fracture, but no acute trauma. No other complaints at this time. No chest pain or neck pain otherwise. No other modifying factors. Related Data Home Medications Medication Instructions Recorded Confirmed methadone 10 mg/5 mL oral solution 100 mg PO QAM 11/16/21 05/06/23 magnesium gluconate 27 mg 27 mg PO BID #60 tabs 11/08/22 05/06/23 magnesium (500 mg) tablet calcium carbonate 200 mg calcium 2,000 mg PO BID 02/02/23 05/06/23 (500 mg) chewable tablet (Tums) gabapentin 300 mg capsule 300 mg PO BID 02/02/23 05/06/23 pantoprazole 40 mg granules 40 mg PO DAILY #30 ea 02/13/23 05/06/23 delayed-release for susp in packet (Protonix) ondansetron 4 mg disintegrating 4 mg PO Q8H #5 tabs 03/22/23 05/06/23 tablet calcitriol 0.5 mcg capsule 0.5 mcg PO BID #360 caps 04/21/23 05/06/23 clonazepam 1 mg tablet 1 mg PO BID #56 tabs 04/21/23 05/06/23 cyclobenzaprine 10 mg tablet 10 mg PO TID PRN muscle spasm #30 04/21/23 05/06/23 tabs diclofenac sodium 1 % topical gel 4 g topical QID #100 grams 04/21/23 05/06/23 cefpodoxime 200 mg tablet 200 mg PO Q12H 04/28/23 05/06/23 Previous Rx's Medication Instructions Recorded magnesium gluconate 27 mg 27 mg PO BID #60 tabs 11/08/22 magnesium (500 mg) tablet pantoprazole 40 mg granules 40 mg PO DAILY #30 ea 02/13/23 delayed-release for susp in packet (Protonix) ondansetron 4 mg disintegrating 4 mg PO Q8H #5 tabs 03/22/23 tablet calcitriol 0.5 mcg capsule 0.5 mcg PO BID #360 caps 04/21/23 clonazepam 1 mg tablet 1 mg PO BID #56 tabs 04/21/23 cyclobenzaprine 10 mg tablet 10 mg PO TID PRN muscle spasm #30 04/21/23 tabs diclofenac sodium 1 % topical gel 4 g topical QID #100 grams 04/21/23 Allergies Allergy/AdvReac Type Severity Reaction Status Date / Time codeine Allergy Intermediate Verified 05/14/23 12:33 Penicillins Allergy Skin Rash Verified 05/14/23 12:33 amoxicillin AdvReac Intermediate Nausea Verified 05/14/23 12:33 dextromethorphan AdvReac Intermediate Other (See Unverified 05/14/23 12:33 [From NyQuil] Comment) doxylamine [From NyQuil] AdvReac Intermediate Other (See Unverified 05/14/23 12:33 Comment) pseudoephedrine [From NyQuil] AdvReac Intermediate Other (See Unverified 05/14/23 12:33 Comment) General Stated Complaint: Orthopedic ADRIANA: 4 Review of Systems All systems reviewed & are unremarkable except as noted in HPI and below PFSH All Active Problems (Updated 05/14/23 @ 12:44 by Richy Eagle DO) Brachial plexus neuropathy (Acute) Hypercalcemia (Acute) Pharyngitis (Acute) Fall (Acute) Contusion (Acute) Back pain (Acute) Abdominal pain (Acute) At high risk for hypocalcemia (Acute) Facial twitching (Acute) Fracture of tooth (Acute) Cholelithiases (Acute) 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 (Acute) Inflammatory arthritis (Acute) Costochondritis (Acute 12/13/22) [facility] Cellulitis (Acute) Severe anxiety with panic (Chronic) Family history of coronary arteriosclerosis (Chronic) Father of MA at 50, mother had MA at 42 Elevated parathyroid hormone (Acute) Suicidal ideation (Acute) Depression (Chronic) Hypocalcemia (Chronic) Hypomagnesemia (Chronic) Depression (Chronic) Primary hyperparathyroidism (Chronic) Chronic constipation (Chronic) Multiple endocrine neoplasia type I (Chronic) Iatrogenic hypocalcemia (Acute) Abdominal pain (Acute) Common bile duct dilatation (Acute) Intrahepatic bile duct dilation (Acute) Abnormal CT scan, kidney (Acute) Sphincter of Oddi dysfunction (Chronic) Therapeutic opioid induced constipation (Acute) Pulmonary nodule 1 cm or greater in diameter (Chronic) Neck pain on left side (Acute) with shoulder, upper back pain.. torticollis, radiating into left hip/leg History of electrolyte imbalance (Acute) Complex medical condition (Chronic) Serious electrolyte imbalances, with gynecomastia, possible MEN Dx, CKD and anemia with baseline anxiety and Hx PTSD. CKD (chronic kidney disease) stage 2, GFR 60-89 ml/min (Acute) GFR 64-65, with Hx FLORESITA and GFR < 45 Gynecomastia, male (Acute) b/l, per CT (Jul 2022).. Possible 2' Methadone, Clnzpm (?). Surg eval (+)/No further action. Left arm numbness (Acute) Medical History Hypocalcemia Anxiety Depression Hyperlipidemia Family history of multiple endocrine neoplasia, type 1 PTSD (post-traumatic stress disorder) Surgical History H/O parathyroidectomy Family History Mother Anxiety Asthma Depression Sister Anxiety Depression Father Cancer lung & stomach Depression Diabetes Hypertension MEN 1 (multiple endocrine neoplasia) Social History Smoking/Tobacco Use Status: Never Smoking risk assessment performed?: Yes Alcohol Intake: never Drug use: Rarely Substance use type: does not use and former substance user Details: Relapse w/ snorting 'small amount' of heroin 03/20/23 per pt Adopted: No Caregiver/Support person: No Foster care: No Household members: none Housing: apartment Number of Children: 0 Communication Needs: None Education Level: high school Do you need help understanding health information?: Never 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 and animals: Yes (Ally) Pets and animals: dog(s) Sexually active: No Do you think of yourself as: straight/heterosexual Current gender identity: male What is your relationship status?: How often do you talk on the phone with friends or family?: twice per week How often do you get together with friends or relatives?: never Do you belong to any clubs or organized social groups?: no Panel score (0-1 are the most socially isolated patients): 0 What type of physical activity do you participate in: walking Duration: 15-30 minutes/day Frequency: 5-6 times per week Maryam/Synagogue: [employer] Special maryam needs: No Seatbelt use: always Helmet use: Yes Helmet use: always 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 3.ENT: Atraumatic external nose and ears. Moist MM. Neck: Symmetric, trachea midline, No thyromegaly. 4.CVS: +S1/S2, No murmurs or gallops. Peripheral pulses 2+ and equal in all extremities. Brisk capillary refill in all extremities. 5.RESP: Unlabored respiratory effort. Clear to auscultation bilaterally. No wheezes rales or rhonchi 6.GI: Soft, Nontender/Nondistended, No hepatosplenomegaly. No guarding or rebound. 7.MSK: Normocephalic/Atraumatic, Extremities w/o deformity or ttp No cyanosis or clubbing, Normal movement of all extremities. Normal sensation throughout. 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 No evidence of redness or trauma on the right forearm elbow or shoulder. Mild tense muscles bilaterally, especially in the neck region. No midline tenderness to palpation over the CTLS spine. Normal ROM in flexion, extension, side bend, and rotation. Patient has +5 out of 5 strength in the lower extremities in dorsiflexion and plantarflexion, knee flexion and extension, hip flexion and extension. Normal strength for dorsiflexion and plantar flexion of the great toe bilaterally. There is +2 over 2 dorsalis pedis pulses bilaterally. There is normal sensation to the skin with light touch at the foot, knee, and hip. Normal saddle sensation. Good sensation over the deep sural nerve area bilaterally. Rectal exam demonstrates good rectal tone with excellent aliyah-rectal sensation. Reflexes are +2 over 4 in the patellar reflex bilaterally. +5 out of 5 strength in the medial, ulnar, radial nerve distribution bilaterally in the hands as well as intact light touch sensation to these dermatomes on the hands 8.Skin: Warm, Dry. No rashes or lesions. 9.Neuro: failure analysis technician II-XII grossly intact. Sensation grossly intact, no focal neurologic deficits. 10.Psych: (AAO) x3. Appropriate mood and affect Course Vital Signs Vital signs: Vital Signs Temperature 36.4 C 05/14/23 12:22 Pulse 102 H 05/14/23 12:22 Respiratory Rate 14 05/14/23 12:22 Blood Pressure 125/93 H 05/14/23 12:22 Pulse Oximetry 99 05/14/23 12:22 Temperature 36.4 C 05/14/23 12:22 Temperature Source Skin 05/14/23 12:22 Pulse 102 H 05/14/23 12:22 Respiratory Rate 14 05/14/23 12:22 Respiratory Effort Normal 05/14/23 12:32 Blood Pressure 125/93 H 05/14/23 12:22 Blood Pressure Position Sitting 05/14/23 12:22 Pulse Oximetry 99 05/14/23 12:22 Oxygen Delivery Method Room Air 05/14/23 12:22 Oxygen Flow Rate 0 05/14/23 12:22 Pain Level 7 05/14/23 12:22
--- OUTSIDE RECORDS SUMMARY | 2023-05-14 12:36 | XMS_ITS | Continuity of Care Document ---
Author Name Unknown Organization 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 NBR [id number] Date(s): 01/23/23 - 01/23/23 [facility] [address] [place] [address]- [place] Encounter Diagnosis Atypical chest pain(Discharge Diagnosis) - 01/23/23 Discharge Disposition: Home or Self Care Attending Physician: Berto Davis MD Admitting Physician: Berto Davsi MD Allergies, Adverse Reactions, Alerts Substance Reaction [...] Laboratory List Name Date CBC w/ Diff 01/23/23 Comprehensive Metabolic Panel (CMP) 01/23 Magnesium Level 01/23/23 Troponin-I High Sensitivity 01/23/23 Automated Diff 01/23/23 Most recent to oldest [Reference Range]: 1 WBC [4.8-10.8 K/mcL] 6.3 K/mcL (01/23/23 9:56 AM) RBC [4.20-6.10 Million/mcL] 3.57 Million /mcL *LOW* (01/23/23 9:56 AM) Neutro Auto [42.2-75.2 %] 59.8 % (01/23/23 9:56 AM) Lymph Auto [20.5-51.1 %] 23.0 % (01/23/23 9:56 AM) [place] Auto [1.7-9.3 %] 13.4 % *HI* (01/23/23 9:56 AM) Basophil Auto [0.0-0.8 %] 0.5 % (01/23/23 9:56 AM) BUN [8-26 mg/dL] 16 mg/dL (01/23/23 9:56 AM) Glucose Level [74-106 mg/dL] 103 mg/dL (01/23/23 9:56 AM) Potassium Level [3.5-5.1 mmol/L] 4.1 mmo l/L (01/23/23 9:56 AM) Baso Absolute [0.0-0.2 K/mcL] 0.0 K/mcL (01/23/23 9:56 AM) MCV [80.0-94.0 fL] 93.0 fL (01/23/23 9:56 AM) AST [15-41 IntlUnit/L] 37 IntlUnit/L (01/23/23 9:56 AM) ALT [17-63 IntlUnit/L] 36 IntlUnit/L (01/23/23 9:56 AM) MCHC [32.0-36.0 g/dL] 33.7 g/dL (01/23/23 9:56 AM) Osmolality [275-295 mOsm/kg] 277 mOsm/kg (01/23/23 9:56 AM) Sodium Level [134-143 mmol/L] 138 mmol/L (01/23/23 9:56 AM) Lymph Absolute [1.2-3.4 K/mcL] 1.4 K/mcL (01/23/23 9:56 AM) Hct [42.0-52.0 %] 33.2 % *LOW* (01/23/23 9:56 AM) Calcium Level [8.9-10.3 mg/dL] 9.3 mg/dL (01/23/23 9:56 AM) [place] Absolute [0.1-0.6 K/mcL] 0.8 K/mcL *HI* (01/23/23 9:56 AM) Albumin Level [3.5-5.0 g/dL] 3.3 g/dL *LOW* (01/23/23 9:56 AM) Protein Total [6.5-8.1 g/dL] 7.1 g/dL (01/23/23 9:56 AM) MCH [27.0-31.0 pg] 31.4 pg *HI* (01/23/23 9:56 AM) Magnesium Level [1.8-2.5 mg/dL] 2.1 mg/d L (01/23/23 9:56 AM) Neutro Absolute [1.4-6.5 K/mcL] 3.7 K/mc L (01/23/23 9:56 AM) Bilirubin Total [0.2-1.2 mg/dL] 0.7 mg/d L (01/23/23 9:56 AM) Hgb [14.0-18.0 g/dL] 11.2 g/dL *LOW* (01/23/23 9:56 AM) Alk Phos [38-130 IntlUnit/L] 101 IntlUni t/L (01/23/23 9:56 AM) MPV [7.4-10.4 fL] 11.1 fL *HI* (01/23/23 9:56 AM) Platelets [130-400 K/mcL] 226 K/mcL (01/23/23 9:56 AM) CO2 [22-32 mmol/L] 31 mmol/L (01/23/23 9:56 AM) Eos Absolute [0.0-0.2 K/mcL] 0.2 K/mcL (01/23/23 9:56 AM) Chloride Level [98-111 mmol/L] 99 mmol/L (01/23/23 9:56 AM) RDW-CV [11.5-14.5 %] 12.6 % (01/23/23 9:56 AM) A/G Ratio 0.9 *NA* (01/23/23 9:56 AM) BUN/Creat Ratio [8.0-20.0] 10.6 (01/23/23 9:56 AM) Globulin 3.8 *NA* (01/23/23 9:56 AM) Imm Gran Absolute 0.02 *NA* (01/23/23 9:56 AM) Imm Gran Auto [0.0-0.5 %] 0.3 % (01/23/23 9:56 AM) Slide Review Not Indicated (01/23/23 9:56 AM) Creatinine Level [0.61-1.24 mg/dL] 1.51 mg/dL *HI* (01/23/23 9:56 AM) Troponin-I HS [<=20 ng/L] <2 ng/L 1 (01/23/23 9:56 AM) Anion Gap [3.0-12.0] 8.0 (01/23/23 9:56 AM) Eos, Auto [0.00-3.00 %] 3.00 % (01/23/23 9:56 AM) eGFR CKD-EPI [>=60 mL/min/1.73 m2] 64 mL /min/1.73 m2 (01/23/23 9:56 AM) 1Interpretive Data: The [facility] ACCESS high-sensitivity [...] Exam Date Time Procedure Performing Provider Status 01/23/23 11:04 AM XR Chest 1 View Zeenat Mcdonough; Alex (Verified) Notes: (XR Chest 1 View) Reason For Exam: dyspnea XR Chest 1 View EXAM DESCRIPTION: XR Chest 1 View 01/23/2023 INDICATION: DYSPNEA COMPARISON: 12/18/2022 FINDINGS: Clear lungs with no focal infiltrate or pulmonary edema. Normal cardiomediastinal contour. No significant pleural effusion or pneumothorax. IMPRESSION: No active chest disease. JOB #: [id number] Final Signed by: John Burciaga MD Signed (Electronic Signature): 01/23/2023 11:29 am Vital Signs Most recent to oldest [Reference Range]: 1 2 3 Temperature Temporal Artery [36-38 Deg C] 36.2 Deg C (01/23/23 9:10 AM) Peripheral Pulse Rate [60-100 bpm] 57 bpm *LOW* (01/23/23 11:15 AM) 59 bpm *LOW* (01/23/23 11:00 AM) 62 bpm (01/23/23 10:30 AM) Heart Rate Monitored [60-100 bpm] 59 bpm *LOW* (01/23/23 11:30 AM) 58 bpm *LOW* (01/23/23 11:15 AM) 81 bpm (01/23/23 11:00 AM) Respiratory Rate [12-24 br/min] 12 br/min (01/23/23 11:30 AM) 10 br/min *LOW* (01/23/23 11:15 AM) 19 br/min (01/23/23 11:00 AM) Blood Pressure [90-140/60-90 mmHg] 128/77mmHg (01/23/23 9:10 AM) Weight Dosing 108.00 kg (01/23/23 9:37 AM) Weight Estimated 108.00 kg (01/23/23 9:10 AM) Height/Length Dosing 177.000 cm (01/23/23 9:37 AM) Height/Length Estimated 177.000 cm (01/23/23 9:10 AM) Social History Social History Type Response Tobacco Never tobacco user T obacco Use:. Sex Hospital Discharge Instructions Patient Education 01/23/2023 11:35:00 Nonspecific Chest Pain, Adult Nonspecific Chest Pain, [...] these instructions at home: Medicines ??? Take abvo-avz-bansttp and prescription medicines only as told by [...] Document Reviewed: 08/16/2021 Elsevier Patient Education ?? 2022 [employer]. Physician Emergency department Note * Berto Davis MD: PERFORM Event Display: ED Note Physician Authored Date: [id number] DESIRE SANCHEZ :1995 Age:27 years Sex:Male Visit Date:01/23/2023 Primary Care Physician: JARRELL HOUSER DO Basic Information Time Seen: Berto Dvais MD / 01/23/2023 09:27 Chief Complaint pt reports 3 days chest pain today radiating into left arm, vomiting this AM, History Of Present Illness: Patient comes into the emerged part with 3 days of chest pain rating to left arm and some nausea this morning. ??Denies fever chills cough??and he does get this chest pain recurrently and has been here before??but he feels that he should be checked out??again Review of Systems: Review of systems negative other than that stated above Physical Exam Vitals & Measurements T:??36.2?C ??(Temporal Artery)?? HR:??59??(Monitored)?? RR:??12?? BP:??128/77?? SpO2:??98%?? HT:??177.000??cm?? WT:??108.00??kg??(Estimated)?? Pain Score:??6?? O2 Flow Rate:??2?? O2 Therapy:??Nasal cannula?? General: Alert and oriented, well nourished, no [...] Procedure No Qualifying Data Reexamination/Reevaluation Patient given Zofran and??IV fluids. ??He slept for several hours and upon awakening he feels??symptom-free. ??I told him there is no evidence of acute coronary syndrome or obvious??infection or inflammation. ??He was offered a prescription for Zofran??which he refused. ??He will rest stay hydratedfollow-up with regular doctor return as needed Assessment/Plan 1.??Atypical chest pain??R07.89 Orders: Discharge Patient, 01/23/23 12:33:00 EDT Patient Education Nonspecific Chest Pain, Adult Medication Reconciliation Unchanged acetaminophen (acetaminophen 325 [...] stress disorder Torticollis Historical No qualifying data Medication Administration Given Sodium Chloride 0.9%, 1000 mL, IV Bolus ondansetron, 4 mg, IV Push Allergies amoxicillin??(Vomiting [...] : Diagnostic Results XR Chest 1 View 01/23/2023 11:31 EDT XR Chest 1 View ?? 01/23/23 11:29:09 EXAM DESCRIPTION: XR Chest 1 View ?? 01/23/2023 ?? INDICATION: DYSPNEA ?? COMPARISON: 12/18/2022 ?? FINDINGS: Clear lungs with no focal infiltrate or pulmonary edema. ?? Normal cardiomediastinal contour. ?? No significant pleural effusion or pneumothorax. ?? IMPRESSION: No active chest disease. ? JOB #: [id number] Electronically Signed By: ?? Signed By: John Burciaga MD ECG Sinus rhythm at 69 no acute changes Lab Results CBC and Differential?? LATEST RESULTS?? HISTORICAL RESULTS?? WBC?? 01/23/23 09:56?? 6.3?? 12/18/22?? 9.7?? RBC?? 01/23/23 09:56?? 3.57 ??Low?? 12/18/22?? 3.80 ??Low?? Hgb?? 01/23/23 09:56?? 11.2 ??Low?? 12/18/22?? 12.0 ??Low?? Hct?? 01/23/23 09:56?? 33.2 ??Low?? 12/18/22?? 35.2 ??Low?? MCV?? 01/23/23 09:56?? 93.0?? 12/18/22?? 92.6?? MCH?? 01/23/23 09:56?? 31.4 ??High?? 12/18/22?? 31.6 ??High?? MCHC?? 01/23/23 09:56?? 33.7?? 12/18/22?? 34.1?? RDW-CV?? 01/23/23 09:56?? 12.6?? 12/18/22?? 12.6?? Platelets?? 01/23/23 09:56?? 226?? 12/18/22?? 260?? MPV?? 01/23/23 09:56?? 11.1 ??High?? 12/18/22?? 11.3 ??High?? Neutro Auto?? 01/23/23 09:56?? 59.8?? 12/18/22?? 51.9?? Lymph Auto?? 01/23/23 09:56?? 23.0?? 12/18/22?? 35.2?? [place] Auto?? 01/23/23 09:56?? 13.4 ??High?? 12/18/22?? 9.6 ??High?? Eos, Auto?? 01/23/23 09:56?? 3.00?? 12/18/22?? 2.40?? Basophil Auto?? 01/23/23 09:56?? 0.5?? 12/18/22?? 0.6?? Imm Gran Auto?? 01/23/23 09:56?? 0.3?? 12/18/22?? 0.3?? Neutro Absolute?? 01/23/23 09:56?? 3.7?? 12/18/22?? 5.0?? Lymph Absolute?? 01/23/23 09:56?? 1.4?? 12/18/22?? 3.4?? [place] Absolute?? 01/23/23 09:56?? 0.8 ??High?? 12/18/22?? 0.9 ??High?? Eos Absolute?? 01/23/23 09:56?? 0.2?? 12/18/22?? 0.2?? Baso Absolute?? 01/23/23 09:56?? 0.0?? 12/18/22?? 0.1?? Imm Gran Absolute?? 01/23/23 09:56?? 0.02?? 12/18/22?? 0.03?? Slide Review?? 01/23/23 09:56?? Not Indicated?? 12/18/22?? Not Indicated? Routine Chemistry?? LATEST RESULTS?? HISTORICAL RESULTS?? Sodium Level?? 01/23/23 09:56?? 138?? 12/18/22?? 137?? Potassium Level?? 01/23/23 09:56?? 4.1?? 12/18/22?? 3.7?? Chloride Level?? 01/23/23 09:56?? 99?? 12/18/22?? 97 ??Low?? CO2?? 01/23/23 09:56?? 31?? 12/18/22?? 29?? Alk Phos?? 01/23/23 09:56?? 101?? 12/18/22?? 90?? AST?? 01/23/23 09:56?? 37?? 12/18/22?? 30?? ALT?? 01/23/23 09:56?? 36?? 12/18/22?? 46?? BUN?? 01/23/23 09:56?? 16?? 12/18/22?? 23?? Glucose Level?? 01/23/23 09:56?? 103?? 12/18/22?? 97?? Creatinine Level?? 01/23/23 09:56?? 1.51 ??High?? 12/18/22?? 1.38 ??High?? BUN/Creat Ratio?? 01/23/23 09:56?? 10.6?? 12/18/22?? 16.7?? eGFR CKD-EPI?? 01/23/23 09:56?? 64?? 12/18/22?? 71?? Calcium Level?? 01/23/23 09:56?? 9.3?? 12/18/22?? 8.6 ??Low?? Protein Total?? 01/23/23 09:56?? 7.1?? 12/18/22?? 7.5?? Albumin Level?? 01/23/23 09:56?? 3.3 ??Low?? 12/18/22?? 3.6?? Globulin?? 01/23/23 09:56?? 3.8?? 07/05/23?? 3.9?? A/G Ratio?? 01/23/23 09:56?? 0.9?? 12/18/22?? 0.9?? Bilirubin Total?? 01/23/23 09:56?? 0.7?? 12/18/22?? 0.3?? Anion Gap?? 01/23/23 09:56?? 8.0?? 12/18/22?? 11.0?? Magnesium Level?? 01/23/23 09:56?? 2.1?? 10/23/22?? 1.8?? Osmolality?? 01/23/23 09:56?? 277?? 12/18/22?? 277? Cardiac Isoenzymes?? LATEST RESULTS?? Troponin-I HS?? 01/23/23 09:56?? <2? Electronically Signed on 01/23/23 02:37 PM Berto Davis MD Emergency department Discharge instructions * Berto Davis MD: PERFORM Event Display: ED Discharge Information Authored Date: [id number] DESIRE SANCHEZ :1995 Age:27 years Sex:Male Visit Date:01/23/2023 Primary Care Physician: JARRELL HOUSER DO Discharge Instructions We would like to thank you for allowing us to assist you with your healthcare needs. The following includes patient education materials and information regarding your injury/illness. Diagnosis from Today's Visit Atypical chest pain Discharge Vitals Temperature??(Temporal Artery) 97.2 ??F (36.2 ??C) Heart Rate??(Monitored) 59 Respiratory Rate?? 12 Blood Pressure?? 128/77?? Height?? 69.69 in (177.000 cm) Weight??(Estimated) 238.14 lb (108.00 kg) Allergies amoxicillin??(Vomiting symptom) penicillin codeine What to Do Next Instructions from Your Care Team Rest. ??Stay hydrated. ??Follow-up with regular doctor and return to ED as needed You were treated today on [...] these instructions at home: Medicines ? Take ocmh-zgz-hrodmlt and prescription medicines only as told by [...] Document Reviewed: 08/16/2021 Elsevier Patient Education ?? 2022 [employer] Tests Performed Radiology XR Chest 1 View 01/23/2023 11:31 EDT Medications and Immunizations Administered Given Sodium Chloride 0.9%, 1000 mL, IV Bolus ondansetron, 4 mg, IV Push Lab Test Name Test Result Date/Time WBC 6.3 K/mcL 01/23/2023 09:56 EDT RBC 3.57 Million/mcL 01/23/2023 09:56 EDT Hgb 11.2 g/dL 01/23/2023 09:56 EDT Hct 33.2 % 01/23/2023 09:56 EDT MCV 93.0 fL 01/23/2023 09:56 EDT MCH 31.4 pg 01/23/2023 09:56 EDT MCHC 33.7 g/dL 01/23/2023 09:56 EDT RDW-CV 12.6 % 01/23/2023 09:56 EDT Platelets 226 K/mcL 01/23/2023 09:56 EDT MPV 11.1 fL 01/23/2023 09:56 EDT Neutro Auto 59.8 % 01/23/2023 09:56 EDT Lymph Auto 23.0 % 01/23/2023 09:56 EDT [place] Auto 13.4 % 01/23/2023 09:56 EDT Eos, Auto 3.00 % 01/23/2023 09:56 EDT Basophil Auto 0.5 % 01/23/2023 09:56 EDT Imm Gran Auto 0.3 % 01/23/2023 09:56 EDT Neutro Absolute 3.7 K/mcL 01/23/2023 09:56 EDT Lymph Absolute 1.4 K/mcL 01/23/2023 09:56 EDT [place] Absolute 0.8 K/mcL 01/23/2023 09:56 EDT Eos Absolute 0.2 K/mcL 01/23/2023 09:56 EDT Baso Absolute 0.0 K/mcL 01/23/2023 09:56 EDT Imm Gran Absolute 0.02 01/23/2023 09:56 EDT Slide Review Not Indicated 01/23/2023 09:56 EDT Sodium Level 138 mmol/L 01/23/2023 09:56 EDT Potassium Level 4.1 mmol/L 01/23/2023 09:56 EDT Chloride Level 99 mmol/L 01/23/2023 09:56 EDT CO2 31 mmol/L 01/23/2023 09:56 EDT Alk Phos 101 IntlUnit/L 01/23/2023 09:56 EDT AST 37 IntlUnit/L 01/23/2023 09:56 EDT ALT 36 IntlUnit/L 01/23/2023 09:56 EDT BUN 16 mg/dL 01/23/2023 09:56 EDT Glucose Level 103 mg/dL 01/23/2023 09:56 EDT Creatinine Level 1.51 mg/dL 01/23/2023 09:56 EDT BUN/Creat Ratio 10.6 01/23/2023 09:56 EDT eGFR CKD-EPI 64 mL/min/1.73 m2 01/23/2023 09:56 EDT Calcium Level 9.3 mg/dL 01/23/2023 09:56 EDT Protein Total 7.1 g/dL 01/23/2023 09:56 EDT Albumin Level 3.3 g/dL 01/23/2023 09:56 EDT Globulin 3.8 01/23/2023 09:56 EDT A/G Ratio 0.9 01/23/2023 09:56 EDT Bilirubin Total 0.7 mg/dL 01/23/2023 09:56 EDT Anion Gap 8.0 01/23/2023 09:56 EDT Magnesium Level 2.1 mg/dL 01/23/2023 09:56 EDT Osmolality 277 mOsm/kg 01/23/2023 09:56 EDT Troponin-I HS <2 ng/L 01/23/2023 09:56 EDT Patient/Fashion Model Signature Patient Name:DESIRE SANCHEZ DECLAN I have received this information and my questions have been answered. Patient/Fashion Model Name: Patient/Fashion Model Signature: Relationship to Patient: Witness Name/Signature: Date: Electronically Signed on: 01/23/2023 12:35 EDTSigned by:EDGAR Patient Care team information Care Team Personnel Name: JARRELL HOUSER DO Position: No Access Member Role: Primary Care Physician Address: Address: [address] [place] [address]- [place] Name: Berto Davis MD Position: Physician Member Role: ED Physician Address: Address: [address] [place] [phone] [place] Name: Christina Cruz I Position: Nurse Member Role: ED Nurse Care Team Related Persons Name: ARY SANCHEZ Address: Home Name: MILLER SANCHEZ Address: Home
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
--- OUTSIDE RECORDS SUMMARY | 2023-05-14 12:36 | XMS_ITS | Continuity of Care Document ---
Author Name Unknown Organization [facility] Address [address] [place] [id number] Care Team Providers Care Drawer In Jacquard Loom Name Role Phone Brendon Vivar Primary Care Physician Encounter [facility] [phone] Date(s): 04/28/23 - 04/28/[address] [address]- Encounter Diagnosis Dental infection(Discharge Diagnosis) - 04/28/23 Discharge Disposition: Home or Self Care Attending Physician: Asaf Case MD Admitting Physician: Asaf Case MD Referring Physician: Brendon Vivar Allergies, Adverse Reactions, Alerts Substance Reaction Severity Status codeine Severe Active amoxicillin Severe Active penicillin Severe Active Functional Status 04/28/23 Family Member Travel History No recent t ravel Recent Travel History No recent travel Medications clindamycin 150 mg oral capsule 450 mg = 3 cap, Oral, every 8 hr, X 7 days, # 63 cap, 0 Refill(s), 05/05/23 1:20:00 PM 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, 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: [id number], 177.8, cm, 04/28/23 13:37:00 EST, Height, 108.86, kg, 04/28/23 13:37:00 EST, Weight Dosing Start Date: 04/28/23 Stop Date: 05/05/23 Status: Ordered Tylenol 500 mg =, Oral, every 6 hr, PRN as needed for pain, 0 Refill(s) Start Date: 04/28/23 Status: Ordered Mental Status 04/28/23 Eye Opening Response Arthur Spontaneous ly Best Verbal Response Wright Oriented Best Motor Response Arthur Obeys comman ds Arthur Coma Score 15 Problem List No Known Problems Vital Signs Most recent to oldest [Reference Range]: 1 Temperature Tympanic [36.6-38.1 Deg C] 3 6.3 Deg C *LOW* (11/13/23 1:11 PM) Peripheral Pulse Rate [60-100 bpm] 81 bp m (04/28/23 1:11 PM) Respiratory Rate [12-24 br/min] 75 br/mi n *HI* (04/28/23 1:11 PM) Blood Pressure [90-140/60-90 mmHg] 122/8 1mmHg (04/28/23 1:11 PM) Weight Dosing 108.86 kg (04/28/23 1:37 PM) Weight Estimated 108.86 kg (04/28/23 1:11 PM) Height/Length Estimated 177.800 cm (04/28/23 1:11 PM) Height 177.800 cm (04/28/23 1:37 PM) Social History Social History Type Response Tobacco Never tobacco user T obacco Use:. Sex Male Hospital Discharge Instructions Patient Education 04/28/2023 13:22:17 Dental Pain Dental Pain Dental pain is often a sign that something is wrong with your teeth or gums. It is also something that can occur following dental treatment. If you have dental pain, it is important to contact your dental care provider, especially if the cause of the pain has not been determined. Dental pain may beof varying intensity and can be caused by many things, including: ??? Tooth decay (cavities or caries). Cavities are caused by bacteria that produce acids that irritate the nerve of your tooth, making it sensitive to air and hot or cold temperatures. This eventually causes discomfort or pain. ??? Abscess or infection. Once the bacteria reach the inner part of the tooth (pulp), a bacterial infection (dental abscess) can occur. Pus typically collects at the end of the root of a tooth. ??? Injury. ??? A crack in the tooth. ??? Gum recession exposing the root, and possibly the nerves, of a tooth. ??? Gum (periodontal)disease. ??? Abnormal grinding or clenching. ??? Poor or improper home care. ??? An unknown reason (idiopathic). Your pain may be mild or severe. It may occur when you are: ??? Chewing. ??? Exposed to hot or cold temperatures. ??? Eating or drinking sugary foods or beverages, such as soda or candy. Your pain may be constant, or it may come and go without cause. Follow these instructions at home: The following actions may help to lessen any discomfort that you are feeling before or after getting dental care. Medicines ??? Take jruv-ubb-pxakgda and prescription medicines only as told by your dental care provider. ??? If you were prescribed an antibiotic medicine, take it as told by your dental care provider. Donot stop taking the antibiotic even if you start to feel better. Eating and drinking Avoid foods or drinks that cause you pain, such as: ??? Very hot or very cold foods or drinks. ??? Sweet or sugary foods or drinks. Managing pain and swelling ??? Ice can sometimes be used to reduce pain and swelling, especially if the pain is following dental treatment. ??? If directed, put ice on the painful area of your face. To do this: ??? Put ice in [...] greater risk of damage to the area. Brushing your teeth ??? To keep your mouth and gums healthy, brush your teeth twice a day using a fluoride toothpaste. ??? Use a toothpaste made for sensitive teeth as directed by your dental care provider, especially if the root is exposed. ??? Always brush your teeth with a soft-bristled toothbrush. This will help prevent irritation to your gums. General instructions ??? Floss at least once a day. ??? Do not apply heat to the outside of the face. ??? Gargle with a mixture of salt and water 3???4 times a day or as needed. To make salt water, completely dissolve ?1 tsp (3???6 g) of salt in 1 cup (237 mL) of warm water. ??? Keep all follow-up visits. This is important. Contact a dental care provider if: ??? You have any unexplained dental pain. ??? Your pain is not controlled with medicines. ??? Your symptoms get worse. ??? You have new symptoms. Get help right away if: ??? You are unable to open your mouth. ??? You are having trouble breathing or swallowing. ??? You have a fever. ??? You notice that your face, neck, or jaw is swollen. These symptoms may represent a serious problem that is an emergency. Do not wait to see if the symptoms will go away. Get medical help right away. Call your local emergency services (911 in the [place] Do not drive yourself to the hospital. Summary ??? Dental pain may be caused by many things, including tooth decay and infection. ??? Your pain may be mild or severe. ??? Take pjqi-cov-nhtodsl and prescription medicines only as told by your dental care provider. ??? Watch your dental pain for any changes. Let your dental care provider know if your symptoms getworse. This information is not intended to replace advice given to you by your health care provider. Make sure you discuss any questions you have with your health care provider. Document Revised: 03/07/2021 Document Reviewed: 03/07/2021 [employer] Patient Education ?? 2022 [employer]. Follow Up Care 04/28/2023 13:11:35 With:Follow up with Primary Care Address:Unknown When:1 month Emergency department Discharge instructions * Asaf Case MD: PERFORM Event Display: ED Discharge Information Authored Date: [id number] DESIRE SANCHEZ :1995 Age:27 years Sex:Male Visit Date:04/28/2023 Primary Care Physician: Brendon Vivar Discharge Instructions We would like to thank you for allowing us to assist you with your healthcare needs. The following includes patient education materials and information regarding your injury/illness. ?? You came to the emergency department today for dental pain.?We have called in an antibiotic to help with this infection. ??Please come back to the emergency department if you have any symptoms that you're concerned about. ??You should follow-up with your primary care doctor in 1-2 days. Diagnosis from Today's Visit Dental infection Discharge Vitals Temperature??(Tympanic) 97.3 ??F (36.3 ??C) Heart Rate??(Peripheral) 81 Respiratory Rate?? 75 Blood Pressure?? 122/81?? Height?? 70.00 in (177.800 cm) Weight??(Estimated) 240.04 lb (108.86 kg) Allergies amoxicillin codeine penicillin What to Do Next You Need to Schedule the Following Appointments Follow Up with??Follow up with Primary Care When:??Within 1 month You were treated today on an emergency [...] How Much When Instructions Next Dose New clindamycin (clindamycin 150 mg oral capsule) 3 Capsules Oral (given by mouth) Every 8 hours Duration: 7 Days Pickup at [facility] Unchanged acetaminophen (Tylenol) 500 Milligrams Oral (given by mouth) Every 6 hours as needed for as needed for pain Pharmacy Information [facility]: [address] [place] [phone] Education [employer] Dental Pain Dental pain is often a sign that something is wrong with your teeth or gums. It is also something that can occur following dental treatment. If you have dental pain, it is important to contact your dental care provider, especially if the cause of the pain has not been determined. Dental pain may beof varying intensity and can be caused by many things, including: ? Tooth decay (cavities or caries). Cavities are caused by bacteria that produce acids that irritate the nerve of your tooth, making it sensitive to air and hot or cold temperatures. This eventually causes discomfort or pain. ? Abscess or infection. Once the bacteria reach the inner part of the tooth (pulp), a bacterial infection (dental abscess) can occur. Pus typically collects at the end of the root of a tooth. ? Injury. ? A crack in the tooth. ? Gum recession exposing the root, and possibly the nerves, of a tooth. ? Gum (periodontal)disease. ? Abnormal grinding or clenching. ? Poor or improper home care. ? An unknown reason (idiopathic). Your pain may be mild or severe. It may occur when you are: ? Chewing. ? Exposed to hot or cold temperatures. ? Eating or drinking sugary foods or beverages, such as soda or candy. Your pain may be constant, or it may come and go without cause. Follow these instructions at home: The following actions may help to lessen any discomfort that you are feeling before or after getting dental care. Medicines ? Take pomb-xkd-dewugfa and prescription medicines only as told by your dental care provider. ? If you were prescribed an antibiotic medicine, take it as told by your dental care provider. Do notstop taking the antibiotic even if you start to feel better. Eating and drinking Avoid foods or drinks that cause you pain, such as: ? Very hot or very cold foods or drinks. ? Sweet or sugary foods or drinks. Managing pain and swelling ? Ice can sometimes be used to reduce pain and swelling, especially if the pain is following dental treatment. ? If directed, put ice on the painful area of your face. To do this: ? Put ice in [...] greater risk of damage to the area. Brushing your teeth ? To keep your mouth and gums healthy, brush your teeth twice a day using a fluoride toothpaste. ? Use a toothpaste made for sensitive teeth as directed by your dental care provider, especially if the root is exposed. ? Always brush your teeth with a soft-bristled toothbrush. This will help prevent irritation to your gums. General instructions ? Floss at least once a day. ? Do not apply heat to the outside of the face. ? Gargle with a mixture of salt and water 3???4 times a day or as needed. To make salt water, completely dissolve ?1 tsp (3???6 g) of salt in 1 cup (237 mL) of warm water. ? Keep all follow-up visits. This is important. Contact a dental care provider if: ? You have any unexplained dental pain. ? Your pain is not controlled with medicines. ? Your symptoms get worse. ? You have new symptoms. Get help right away if: ? You are unable to open your mouth. ? You are having trouble breathing or swallowing. ? You have a fever. ? You notice that your face, neck, or jaw is swollen. These symptoms may represent a serious problem that is an emergency. Do not wait to see if the symptoms will go away. Get medical help right away. Call your local emergency services (911 in the [place] Do not drive yourself to the hospital. Summary ? Dental pain may be caused by many things, including tooth decay and infection. ? Your pain may be mild or severe. ? Take vwzt-ufx-smobejj and prescription medicines only as told by your dental care provider. ? Watch your dental pain for any changes. Let your dental care provider know if your symptoms get worse. This information is not intended to replace advice given to you by your health care provider. Make sure you discuss any questions you have with your health care provider. Document Revised: 03/07/2021 Document Reviewed: 03/07/2021 [employer] Patient Education ?? 2022 [employer] Tests Performed Medications and Immunizations Administered Given bupivacaine 0.5% preservative-free injectable solution, 25 mg, Local Infiltration Patient/Emergency Spill Response Technician Signature Patient Name:DESIRE SANCHEZ I have received this information and my questions have been answered. Patient/Emergency Spill Response Technician Name: Patient/Emergency Spill Response Technician Signature: Relationship to Patient: Witness Name/Signature: Date: Electronically Signed on 04/28/23 02:23 PM Asaf Case MD Patient Care team information Care Team Personnel Name: Brendon Vivar Position: No Access Member Role: Primary Care Physician Address: Address: [address] [place] [id number] [place] [address] Name: Asaf Case MD Position: Physician Member Role: Attending Physician Address: Address: [address] [place] [id number] Name: Yaritza Fonseca Position: Nurse Member Role: Registered Nurse
--- OUTSIDE RECORDS SUMMARY | 2023-05-14 12:36 | XMS_ITS | Continuity of Care Document ---
Author Name Unknown Organization [facility] Address [address] [place] [id number] Care Team Providers Care C++ Professor Name Role Phone JARRELL HOUSER DO Primary Care Physician Encounter [facility] NBR [id number] Date(s): 05/03/23 - 05/03/23 [facility] [address] [place] [address] [place] Encounter Diagnosis Cough in adult(Discharge Diagnosis) - 05/03/23 Discharge Disposition: Home f/u Internal Provider Attending Physician: Bryan Sheldon DO Admitting Physician: [...] 6.7 g, 0 Refill(s), 06/02/23 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, Pharmacy: [id number], 177.8, cm, 05/03/23 20:22:00 EST, Height, 104.33, kg, 05/03/23 20:22:00 EST, Weight Dosing Start Date: 05/03/23 Stop Date: 06/02/23 Status: Ordered benzonatate 100 mg oral capsule 100 mg = 1 cap, Oral, TID, PRN as needed for cough, X 7 days, # 21 cap, 0 Refill(s), 05/10/23 8:27:00 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, Pharmacy: [id number], 177.8, cm, 05/03/23 20:22:00 EST, [...] 12/13/22 Status: Ordered Mag-G 500 mg =, Oral, [...] Daily, # 30 cap, 0 Refill(s), Pharmacy: [id number], 178, cm, 02/28/23 14:26:00 EDT, Height/Length Dosing, 104, kg, 02/28/23 14:26:00 EDT, Weight Dosing Start Date: 02/28/23 Status: Ordered Tums 500 mg oral tablet, chewable 500 mg = 1 tab, Chewed, BID, # 60 tab, 0 Refill(s) Start Date: 09/22/22 Status: Ordered Mental Status 05/03/23 Eye Opening Response Arthur Spontaneous ly Best Verbal Response [place] Oriented Best Motor Response [place] Obeys comman ds Arthur Coma Score 15 [...] Exam Date Time Procedure Performing Provider Status 05/03/23 8:57 PM XR Chest 2 Views Brigitte Knox; Maddie th (Verified) Notes: (XR Chest 2 Views) Reason For Exam: cough;Chest pain XR Chest 2 Views PROCEDURE INFORMATION: Exam: XR Chest Exam date and time: 05/03/2023 8:52 PM Age: 27 years old Clinical indication: Dyspnea; Chest pain TECHNIQUE: Imaging protocol: Radiologic exam of the chest. Views: 2 views. COMPARISON: CT ANGIO CHEST 04/25/2023 8:34 AM FINDINGS: Tubes, catheters and devices: Cardiac leads superimposed over the chest. Lungs: No alveolar infiltrate. Pleural spaces: No pleural fluid collection. No pneumothorax. Heart/Mediastinum: Normal heart size. Bones/joints: Unremarkable for patient age. IMPRESSION: No active pulmonary disease. No acute change compared to 03/23/2023. THIS DOCUMENT HAS BEEN ELECTRONICALLY SIGNED BY PIERCE CAMACHO MD on 05/03/2023 09:50 PM Final Signed by: Pierce Camacho MD Signed (Electronic Signature): 05/03/2023 9:50 pm Vital Signs Most recent to oldest [Reference Range]: 1 Temperature Temporal Artery [36-38 Deg C ] 36.5 Deg C (05/03/23 8:04 PM) Peripheral Pulse Rate [60-100 bpm] 75 bp m (05/03/23 8:04 PM) Respiratory Rate [12-24 br/min] 14 br/mi n (05/03/23 8:04 PM) Blood Pressure [90-140/60-90 mmHg] 120/7 9mmHg (05/03/23 8:04 PM) Mean Arterial Pressure, Cuff [70-110 mmH g] 93 mmHg (05/03/23 8:04 PM) Weight Dosing 104.33 kg (05/03/23 8:22 PM) Weight Estimated 104.33 kg (05/03/23 8:04 PM) Height 177.800 cm (05/03/23 8:22 PM) Height/Length Estimated 177.800 cm (05/03/23 8:04 PM) Social History Social History Type Response Tobacco Never tobacco user T obacco Use:. Sex Hospital Discharge Instructions Patient Education 05/03/2023 21:15:55 Cough, Adult Cough, Adult Coughing is a [...] these instructions at home: Medicines ??? Take qdyn-wmm-rdmcmdl and prescription medicines only as told by [...] a condition that needs treatment. ??? Take jnxz-abe-qchdmsy and prescription medicines only as told by [...] Reviewed: 06/21/2019 Elsevier Patient Education ?? 2022 [employer] Follow Up Care 05/03/2023 20:04:36 With:JARRELL HOUSER DO Address: [facility] [address] [place] [address] [id number] When:1 month Physician Emergency department Note * ANDREW Iraheta: PERFORM Event Display: ED Note Physician Authored Date: [id number] PEDRO PABLO SANCHEZ :1995 Age:27 years Sex:Male Visit Date:05/03/2023 Primary Care Physician: JARRELL HOUSER DO Basic Information Time Seen: ANDREW Iraheta / 05/03/2023 20:20 Chief Complaint Pateint reports being dx with pneumonia approx 1 week ago, was rx Doxycycline x 5 days. Patient reports shortness of breath and chest fullness x 3 days. History Of Present Illness: Patient is a 27-year-old male here for concern of a cough and shortness of breath that is been present for the past 2 weeks. ??Explains that??2 weeks ago he was diagnosed with pneumonia and treated with??doxycycline. ??He states that the cough has improved but he is still feeling short of breath especially??right at bedtime. ??He states that he has had??some GERD symptoms as well and he has been taking omeprazole in the morning. ??Denies any other chest pains.?? Of asthma and has not??ever usedinhalers.?? Denies any fevers dizziness or syncope. ??States he has been eating and drinking well however he did??experience??early??satiety??at lunchtime today. Review of Systems: See HPI Physical Exam Vitals & Measurements T:??36.5?C ??(Temporal Artery)?? HR:??75??(Peripheral)?? RR:??14?? BP:??120/79?? SpO2:??96%?? HT:??177.800??cm?? WT:??104.33??kg??(Estimated)?? Pain Score:??6?? O2 Therapy:??Room air?? General: Patient is alert and engaging, appears well. Is in no acute distress. Speaking comfortablyin full sentences.?? Constitutional: No fevers, chills or diaphoresis.?? HEENT: Head normocephalic and atraumatic. Neck supple with FROM w/o lymphadenopathy or JVD. Tracheamidline. No c-spine tenderness. EOMs intact w/o pain. Pupils equal and reactive to light. TMs visualized bilaterally with normal color and landmarks present w/o erythema or effusion.?? Respiratory: ??No obvious work of breathing, regular rate. BS equal b/l, clear to auscultation. Cardiovascular: Heart regular rate and rhythm w/o murmurs, rubs or gallops. No peripheral edema present.?? Extremities: No obvious deformities. FROM.?? Calves equal circumference without erythema, edema or TTP. Integumentary: Skin warm and pink. No rashes or ecchymosis present.?? Neuro: CN III-XII grossly intact.?? Psychiatric: acting appropriate for age and circumstance. Normal mood without obvious ??affect.?? Medical Decision Making: Patient is a pleasant 27-year-old male here for concerns of continued cough and??dyspnea mainly at bedtime for the past??2 weeks after being diagnosed with pneumonia. ??He had completed his course of??doxycycline as prescribed. ??Vitals obtained and reviewed. ??Initially oxygen saturation was 96% on room air. ??However, saturation seems sporadic it will go from 93% to 98%. ??Pulse is 75 bpm.?? Blood pressure 120/79. ??Patient??appears well and is in no signs of distress. ??He is sitting comfortably in the bed and??speaking in full sentences, managing his own secretion. ??There is no audible stridor or stridor.?? Exam as described above??and??no advantageous??lung sounds appreciated. EKG obtained??showing normal sinus rhythm??with a rate of 77 without evidence of ischemia. I have a low clinical suspicion for PE and Wells 0. ??Xray obtained showing no acute changes. He was ambulated around the ED and saturation remained at 98 % and was 95 % once laying down again.He disclosed than that he has felt winded with exertion since having COVID.?? Patient was also evaluated by??Dr. Sheldon as well??who did a??bedside ultrasound of the heart??and lungs-no??abnormalities appreciated. This cough??is most likely residual from??his pneumonia.?? Considered bronchitis or bronchospasm however there is no??wheezing appreciated on exam??however I do??think that he would benefit from a short-term albuterol inhaler and Tessalon Perles which were both prescribed.?? Less likely??PE, pneumothorax??or pleural effusion based on work-up and imaging. ??Also have lower suspicion for??cardiac cause of??the dyspnea??with??his normal EKG and??ultrasound.?? Reassurance was provided to the patient and he agrees on the supportive care and close PCP follow-up. Procedure No Qualifying Data Assessment/Plan 1.??Cough in adult??R05.9 Discharged home??with a prescription of albuterol inhaler and Tessalon Perles sent. ??We will have close PCP follow-up and strict return precautions discussed. Ordered: Discharge Patient, 05/03/23 22:17:00 EST ?? Orders: Albuterol (Eqv-ProAir HFA) 90 mcg/inh inhalation aerosol, 2 puffs, Inhale, every 6 hr, X 30 days, #6.7 g, 0 Refill(s), 06/02/23 22:14:00 EST, Pharmacy: [facility], 177.8, cm, 05/03/23 20:22:00EST, Height, 104.33, kg, 05/03/23 20:22:00 EST, Weight Dosing benzonatate 100 mg oral capsule, 100 mg = 1 cap, Oral, TID, PRN as needed for cough, X 7 days, # 21cap, 0 Refill(s), 05/10/23 21:27:00 EST, Pharmacy: [facility], 177.8, cm, 05/03/23 20:22:00 EST, Height, 104.33, kg, 05/03/23 20:22:00 EST, Weight Dosing benzonatate, 100 mg = 1 cap, Oral, Cap, Once, First Dose: 05/03/23 23:00:00 EST, Stop Date: 05/03/23 23:00:00 EST, Physician Stop, Routine Patient Education Cough, Adult Follow Up With When Contact Information JARRELL HOUSER DO Within 1 month [facility] [address] [place] [phone] Additional Instructions: Medication Reconciliation New Prescription albuterol (Albuterol (Eqv-ProAir HFA) 90 mcg/inh inhalation aerosol)2 Puffs Inhale (breathe in) every 6 hours for 30 Days. Refills: 0. ?? benzonatate (benzonatate 100 mg oral capsule)1 Capsules Oral (given by mouth) 3 times a day as needed as needed for cough for 7 Days. Refills: 0. ?? Unchanged acetaminophen (acetaminophen [...] a day. ?? magnesium gluconate (Mag-G)500 Milligrams Oral (given [...] Electronic Cigarette Use: Never. Substance Use Past, Marijuana, Prescription medications Tobacco Never tobacco user Tobacco Use:. Family History Anxiety: Mother. Asthma: Mother. Depression: Father. Diabetes mellitus: Father. Heart attack: Mother and Father. Hypertension: Father. MEN 1 - Multiple endocrine neoplasia syndrome type 1: Father. Mental illness: Mother. Myocardial infarction: Mother and Father. Family Member(s): ?? FATHER, at age: Unknown. Cause of : Diagnostic Results XR Chest 2 Views 05/03/2023 21:50 EST XR Chest 2 Views ?? 05/03/23 20:52:53 PROCEDURE INFORMATION: Exam: XR Chest Exam date and time: 05/03/2023 8:52 PM Age: 27 years old Clinical indication: Dyspnea; Chest pain ?? TECHNIQUE: Imaging protocol: Radiologic exam of the chest. Views: 2 views. ?? COMPARISON: CT ANGIO CHEST 04/25/2023 8:34 AM ?? FINDINGS: Tubes, catheters and devices: Cardiac leads superimposed over the chest. Lungs: No alveolar infiltrate. Pleural spaces: No pleural fluid collection. No pneumothorax. Heart/Mediastinum: Normal heart size. Bones/joints: Unremarkable for patient age. ?? IMPRESSION: No active pulmonary disease. No acute change compared to 03/23/2023. ? THIS DOCUMENT HAS BEEN ELECTRONICALLY SIGNED BY PIERCE CAMACHO MD on 05/03/2023 09:50 PM ?? Signed By: Pierce Camacho MD Electronically Signed on 05/03/23 10:22 PM ANDREW Iraheta * Bryan Sheldon, DO: MODIFY, PERFORM Event Display: ED Note Physician Authored Date: [id number] PEDRO PABLO SANCHEZ DECLAN :1995 Age:27 years Sex:Male Visit Date:05/03/2023 Primary Care Physician: JARRELL HOUSER DO For this patient encounter, I reviewed the??PA-C documentation. ??I provided direct medical decision making, treatment planning, and I have personally spent time with the patient. ??All procedures were performed by the PA-C under my supervision. ?? I know Pedro Pablo quite well as he is a frequent ED utilizer. ??I sat with Pedro Pablo to find out what is a driving factor behind his recurrent ED visits. ??He states??that both his??father and uncle at ayoung age. ??He states his uncle ??from what appears to be??pulmonary cancer complicated by??CAD/FL??at the age of 45.?? His father?? at the age of 47??with some type of cardiopulmonary illness that??Pedro Pablo cannot recall.?? He??is of the believe this was due to??environmental exposure??as both of them??worked in an [employer] shop. 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 He is quite anxious and concerned??he is going to proceed with early . ?? Bedside ultrasound was performed??which revealed??a strong heart. ??There is no pericardial effusion.?? EF??60%.?? No WMA.?? No right heart strain.?? No evidence of cardiomyopathy.?? Pulmonary windows demonstrated no evidence of??consolidation or??pulmonary edema.?? Reassurance was provided. ??PA-Cat bedside during these procedures. ??Reviewed EKG??which was unremarkable.?? Normal chest x-ray makes pneumonia, pneumothorax, aortic or other intrathoracic abnormalities much less likely. ??Please see disposition and discharge instructions as documented by ELIE. Electronically Signed on 05/04/23 03:10 AM Bryan Sheldon DO Emergency department Discharge instructions * ANDREW Iraheta: PERFORM Event Display: ED Discharge Information Authored Date: [id number] PEDRO PABLO SANCHEZ :1995 Age:27 years Sex:Male Visit Date:05/03/2023 Primary Care Physician: JARRELL HOUSER DO Discharge Instructions We would like to thank you for allowing us to assist you with your healthcare needs. The following includes patient education materials and information regarding your injury/illness. Diagnosis from Today's Visit Cough in adult Discharge Vitals Temperature??(Temporal Artery) 97.7 ??F (36.5 ??C) Heart Rate??(Peripheral) 75 Respiratory Rate?? 14 Blood Pressure?? 120/79?? Height?? 70.00 in (177.800 cm) Weight??(Estimated) 230.05 lb (104.33 kg) Allergies amoxicillin??(Vomiting symptom) penicillin codeine What to Do Next Instructions from Your Care Team Your work-up done here was very reassuring.?? EKG and chest x-ray was normal??and??and there is no evidence of??abnormalities of the heart on bedside ultrasound. ??The cough could be??residual from your recent pneumonia diagnosis??and I would recommend trying an??inhaler and a Tessalon Perle,??these prescriptions have been sent.?? Please follow-up with your primary care and return with any worsening of symptoms. You Need to Schedule the Following Appointments Follow Up with??CORRINA AVILA, JARRELL MEYER When:??Within 1 month Where: [facility] [address] [place] [address] [phone]- You were treated today on an emergency [...] Much When Why Instructions Next Dose New albuterol (Albuterol (Eqv- ProAir HFA) 90 mcg/ inhinhalation aerosol) 2 Puffs Inhale (breathe in) Every 6 hours Duration: 30 Days Pickup at [facility] New benzonatate (benzonatate 100 mg oral capsule) 1 Capsules Oral (given by mouth) 3 times a day as needed for as needed for cough Duration: 7 Days Pickup at [facility] Unchanged acetaminophen (acetaminophen 325 mg oral [...] day Unchanged magnesium gluconate (Mag-G) 500 Milligrams Oral (given by mouth) 2 times a day Unchanged methadone (methadone 10 mg/ 5 mL oral solution) 100 Milligrams Oral (given by mouth) Every morning Unchanged omeprazole (omeprazole 40 mg oral delayed release capsule) 1 Capsules Oral (given by mouth) Every day Chest pain Shortness of breath Chest pain due to GERD Pharmacy Information [facility]: [address] [place] [phone] Education Materials Cough, Adult Coughing is a [...] these instructions at home: Medicines ? Take nsnf-wcg-jyaheln and prescription medicines only as told by [...] a condition that needs treatment. ? Take lqix-zwr-ajfjsll and prescription medicines only as told by [...] ?? 2022 [employer] Inc[employer] Tests Performed Radiology XR Chest 2 Views 05/03/2023 21:50 EST Patient/Senior [employer] Soa Developer Signature Patient Name:PEDRO PABLO SANCHEZ DECLAN I have received this information and my questions have been answered. Patient/Senior [employer] Soa Developer Name: Patient/Senior [employer] Soa Developer Signature: Relationship to Patient: Witness Name/Signature: Date: Electronically Signed on: 05/03/2023 22:17 ESTSigned by:MJW Patient Care team information Care Team Personnel Name: JARRELL HOUSER DO Position: No Access Member Role: Primary Care Physician Address: Address: [address] [id number]- [place] Name: Alf Zambrano Position: Nurse Member Role: ED Nurse Name: ANDREW Iraheta Position: Physician Member Role: Physician Address: Address: [address] [place] [id number] Care Team Related Persons Name: ARY SANCHEZ Name: MILLER SANCHEZ
--- OUTSIDE RECORDS SUMMARY | 2023-05-14 12:36 | XMS_ITS | Continuity of Care Document ---
Author Name Unknown Organization 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 Name Role Phone Brendon Vivar Primary Care Physician Encounter [facility] [id number] Date(s): 05/04/23 - 05/04/[address] [address] Encounter Diagnosis Strain of calf muscle(Discharge Diagnosis) - 05/04/23 Discharge Disposition: Home or Self Care Attending Physician: Daniel Becker MD Admitting Physician: Daniel Becker MD Referring Physician: Brendon Vivar Allergies, Adverse Reactions, Alerts Substance Reaction Severity Status codeine Severe Active amoxicillin Severe Active penicillin Severe Active Functional Status 05/04/23 COVID-19 Screening None Family Member Travel History No recent t ravel Recent Travel History No recent travel Medications clindamycin 150 mg oral capsule 450 mg = 3 cap, Oral, every 8 hr, X 7 days, # 63 cap, 0 Refill(s), 05/05/23 1:20:00 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, Pharmacy: [id number], 177.8, cm, 04/28/23 13:37:00 EST, Height, 108.86, kg, 04/28/23 13:37:00 EST, Weight Dosing Start Date: 04/28/23 Stop Date: 05/05/23 Status: Ordered Tylenol 500 mg =, Oral, every 6 hr, PRN as needed for pain, 0 Refill(s) Start Date: 04/28/23 Status: Ordered Mental Status 05/04/23 Eye Opening Response [place] Spontaneous ly Best Verbal Response [place] Oriented Best Motor Response [place] Obeys comman ds [place] Coma Score 15 Problem List No Known Problems Vital Signs Most recent to oldest [Reference Range]: 1 2 Temperature Oral [35.8-37.3 Deg C] 36.5 Deg C (05/04/23 10:00 AM) Temperature Tympanic [36.6-38.1 Deg C] 3 6.8 Deg C (05/04/23 7:41 AM) Peripheral Pulse Rate [60-100 bpm] 76 bp m (05/04/23 10:00 AM) 91 bpm (05/04/23 7:41 AM) Respiratory Rate [12-24 br/min] 16 br/mi n (05/04/23 10:00 AM) 16 br/min (05/04/23 7:41 AM) Blood Pressure [90-140/60-90 mmHg] 123/1 9mmHg (05/04/23 10:00 AM) 136/93mmHg (05/04/23 7:41 AM) Weight Dosing 115.67 kg (05/04/23 7:52 AM) Weight Estimated 115.67 kg (05/04/23 7:41 AM) Height/Length Estimated 177.800 cm (05/04/23 7:41 AM) Height 177.800 cm (05/04/23 7:52 AM) Social History Social History Type Response Tobacco Never tobacco user T obacco Use:. Sex Male Hospital Discharge Instructions Patient Education 05/04/2023 08:52:38 Hamstring Strain Hamstring Strain A hamstring strain happens when the muscles in the back of the thighs (hamstring muscles) are overstretched or torn. The hamstring muscles are used in straightening the hips, bending the knees, and pulling back the legs. This injury is often called a pulled hamstring muscle. The tissue that connects the muscle to a bone (tendon) may also be affected. The severity of a hamstring strain may be rated in degrees or grades. First- degree (or grade 1) strains have the least amount of muscle tearing and pain. Second-degree and third-degree (grade 2 and 3) strains have increasingly more tearing and pain. What are the causes? This condition is caused by a sudden, violent force being placed on the hamstring muscles, stretching them too far. This often happens during activities that involve sprinting, jumping, kicking, or weight lifting. What increases the risk? Hamstring strains are especially common in athletes. The following factors may also make you more likely to develop this condition: ??? Having low strength, endurance, or flexibility of the hamstring muscles. ??? Doing high-impact physical activity or sports. ??? Having poor physical fitness. ??? Having a previous leg injury. ??? Having tired (fatigued) muscles. ??? Having a previous hamstring strain. What are the signs or symptoms? Symptoms of this condition include: ??? Pain in the back of the thigh or buttocks. ??? Swelling. ??? Bruising. ??? Muscle spasms. ??? Trouble moving the affected muscle because of pain. For severe strains, you may feel popping or snapping in the back of your thigh when the injury occurs. How is this diagnosed? This condition is diagnosed based on your symptoms, your medical history, and a physical exam. You may also have imaging tests, such as an MRI or X-rays. Your strain may be rated based on how severe it is. The ratings are: ??? Grade 1 strain (mild). Muscles are overstretched. There may be very small muscle tears. ??? Grade 2 strain (moderate). Muscles are partially torn. ??? Grade 3 strain (severe). Muscles are completely torn. How is this treated? Treatment for this condition usually involves: ??? Protecting, resting, icing, applying compression, and elevating the injured area (TORRES therapy). ??? Medicines. Your health care provider may recommend medicines to help reduce pain or inflammation. ??? Doing exercises to regain strength and flexibility in the muscles. Your health care provider will tell you when it is okay to begin exercising. Hamstring strains may take a long time to heal. This type of strain may happen again in athletes. Follow your health care provider's advice about when to return to sports-related activities. Follow these instructions at home: TORRES therapy Use TORRES therapy to promote muscle healing during the first 2???3 days after your injury, or as told by your health care provider. ??? Protect the muscle from being injured again. ??? Rest your injury. This usually involves limiting your normal activities and not using the injured hamstring muscle. Talk with your health care provider about how you should limit your activities. ??? Apply ice to the injured area: ??? Put ice in a plastic bag. ??? Place a towel between your skin and the bag. ??? Leave the ice on for 20 minutes, 2???3 times a day. After the third day, switch to applying heat as told. ??? Put pressure (compression) on your injured hamstring by wrapping it with an elastic bandage. Becareful not to wrap it too tightly. That may interfere with blood circulation or may increase swelling. ??? Raise (elevate) your injured hamstring above the level of your heart as often as possible. Whenyou are lying down, you can do this by putting a pillow under your thigh. Activity ??? Begin exercising or stretching only as told by your health care provider. ??? Do not return to full activity level until your health care provider approves. ??? To help prevent muscle strains in the future, always warm up before exercising and stretch afterward. General instructions ??? Take doeb-xjx-amftdjp and prescription medicines only as told by your health care provider. ??? If directed, apply heat to the [...] a greater risk of getting burned. ??? Keep all follow-up visits. This is important. Contact a health care provider if: ??? You have increasing pain or swelling in the injured area. ??? You have numbness, tingling, or a significant loss of strength in the injured area. Get help right away if: ??? Your foot or your toes become cold or turn blue. Summary ??? A hamstring strain happens when the muscles in the back of the thighs (hamstring muscles) are overstretched or torn. ??? This injury can be caused by a sudden, violent force being placed on the hamstring muscles, causing them to stretch too far. ??? Symptoms include pain, swelling, and muscle spasms in the injured area. ??? Treatment includes TORRES therapy: protecting, resting, icing, applying compression, and elevating the injured area. This information is not intended to replace advice given to you by your health care provider. Make sure you discuss any questions you have with your health care provider. Document Revised: 11/01/2021 Document Reviewed: 11/01/2021 [employer] Patient Education ?? 2022 [employer]. 05/04/2023 08:52:24 Elastic Bandage and RICE Therapy Elastic Bandage and RICE Therapy Elastic bandages come in different shapes and sizes. They generally provide support to your injury and reduce swelling while you are healing, but they can perform different functions. Your health care provider will help you to decide what is best for your protection, recovery, or rehabilitation after an injury. The routine care of many injuries includes rest, ice, compression, and elevation (RICE therapy). RICE therapy is often recommended for injuries to soft tissues, such as muscle strain, sprains, bruises, and overuse injuries. It can also be used for some bone injuries. Using RICE therapy can help to relieve pain and lessen swelling. What are some general tips for using an elastic bandage? Use the bandage as directed by the maker of the bandage that you are using. ??? Do not wrap the bandage too tightly. This may block (cut off) the circulation in the arm or legin the area below the bandage. ??? If part of your body beyond the bandage becomes blue, numb, cold, swollen, or more painful, your bandage is probably too tight. If this occurs, remove your bandage and reapply it more loosely. ??? Remove and reapply an elastic bandage every 3???4 hours or as told by your health care provider. ??? See your health care provider if the bandage seems to be making your problems worse rather thanbetter. How to care for your injury with RICE therapy Rest Rest your injury. This may help with the healing process. Rest usually involves limiting your normal activities and not using the injured part of your body. Generally, you can return to your normal activities when your health care provider says it is okay and you can do them without much discomfort. If you rest the injury too much, it may not heal as well. Some injuries heal better with early movement instead of resting for too long. Talk with your health care provider about how you should limityour activities and whether you should start hezma-yf-bbcokp exercises for your injury. Ice Ice your injury to lessen swelling and pain. Do not apply ice directly to your skin. ??? Put ice in a plastic bag. ??? Place a towel between your skin and the bag. ??? Leave the ice on for 20 minutes, 2???3 times a day. Use ice on as many days as told by your health care provider. Compression Put pressure (compression) on your injured area to control swelling, give support, and help with discomfort. Compression may be done with an elastic bandage. Elevation Raise (elevate) your injured area to lessen swelling and pain. If possible, elevate your injured area at or above the level of your heart or the center of your chest. Contact a health care provider if: ??? Your pain and swelling continue. ??? Your symptoms are getting worse rather than improving. Having these problems may mean that you need further evaluation or imaging tests, such as X-rays ginette MRI. Sometimes, X-rays may not show a small broken bone (fracture) until days after the injury happened. Make a follow-up appointment with your health care provider. Ask your health care provider,or the department that is doing the imaging test, when your results will be ready. Get help right away if: ??? You have sudden severe pain at or below the area of your injury. ??? You have redness or increased swelling around your injury. ??? You have tingling or numbness at or below the area of your injury and it does not improve afteryou remove the elastic bandage. Summary ??? Elastic bandages provide support to your injury and reduce swelling while you are healing. Yourhealth care provider will help you decide which type of elastic bandage is best for your injury. ??? Do not wrap the bandage too tightly. This may block (cut off) the circulation in the arm or legin the area below the bandage. ??? Putting pressure (compression) on your injured area with an elastic bandage is part of RICE therapy. RICE therapy includes rest, ice, compression, and elevation. This treatment is recommended forthe routine care of many injuries. This information is not intended to replace advice given to you by your health care provider. Make sure you discuss any questions you have with your health care provider. Document Revised: 07/28/2020 Document Reviewed: 02/20/2018 [employer] Patient Education ?? 2020 [employer]. Follow Up Care 05/04/2023 07:41:43 With:Brendon Vivar Address: [address] [place] [id number]- When:1 week Physician Emergency department Note * Onelia Adler: PERFORM, SIGN, MODIFY, MODIFY Event Display: ED Note Physician Authored Date: [id number] DESIRE SANCHEZ :1995 Age:27 years Sex:Male Visit Date:05/04/2023 Primary Care Physician: Brendon Vivar Basic Information Time Seen: Onelia Adler / 05/04/2023 08:00 Chief Complaint LT calf pain x2days, denies injury to leg. 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 ??Patient states that he noticed some??aching in his calf yesterday evening??and this morning had significant??pain that woke him from sleep. ??Patient took??1000 mg of Tylenol at approximately??5:30 AM with some relief.?? 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 ??Patient denies new footwear.?? Patient is also complaining of some mild chest discomfort but denies pain or shortness of breath. ??Patient states that he does have a significant history??of GERD??and takes daily omeprazole.?? Patient denies any fevers, chills, URI symptoms, cough,?? or GI symptoms. ??Patient denies any numbness??or tingling to the left lower extremity.?? Patient states that he feels a bit weaker??on the left. ??Patient is ambulatory.?? Patient denies history of tobacco use, estrogen supplementation, active cancer diagnosis, recent long travel or immobilization.?? Denies history of PE or DVT.?? Patient states that the??right lower extremity did appear to be somewhat swollen this morning however has since resolved.?? Patient is not anticoagulated.?? Patient denies any other associated or constitutional symptoms. ??Patient denies any aggravating or relieving factors. Review of Systems: Per HPI Physical Exam Vitals & Measurements T:??36.8?C ??(Tympanic)?? HR:??91??(Peripheral)?? RR:??16?? BP:??136/93?? SpO2:??95%?? HT:??177.800??cm?? WT:??115.67??kg??(Estimated)?? Pain Score:??5?? General: Alert and oriented, well nourished,?No??acute distress Eye: PERRL, EOMI,?Normal?conjunctiva HENT: Normocephalic, clear tympanic membranes,?Normal? hearing, moist oral mucosa,?No??scleral icterus,?No??sinus tenderness Neck: Supple, non-tender,?No??carotid bruits,?No??JVD,?No??lymphadenopathy Lungs:??Clear to auscultation?? Respiration:??Non-Labored Heart:?Normal? rate,?Regular??rhythm,?No??murmur,?No??gallop,?No??edema Abdomen: Soft, non-tender, non-distended,?Normal? bowel sounds,?No??masses Musculoskeletal:?Normal? range of motion and strength,?Positive for??tenderness,?No??swelling Skin: Skin is warm, dry and pink,?No??rashes,?No??lesions Neurologic: Awake, alert and oriented X4, CN II-XII intact Psychiatric: Cooperative, appropriate mood and affect Medical Decision Making: Critical Care Time Spent On exam, I find a pleasant young male in no apparent acute distress.?? Patient has stable vital signs and is afebrile.?? Patient is neurovascular neurologically intact to the right lower extremity with +2 pedal and posterior tibial pulses, intact fine motor sensation??and capillary refill less than2 seconds.?? Patient has equal bilateral strength against resistance. ??Patient has full range of motion??the??left lower extremity with good flexion extension at the knee. ??There is no marked??edema to the left lower extremity. ??Patient has reproducible tenderness to palpation over the left calfwith no??overlying edema, erythema, ecchymosis, crepitus??or deformities. ??POCUS DVT??ultrasound performed by myself per procedure note below.?? There is no??appreciable??DVT noted on exam. ??Patient was advised that this is a limited, nondiagnostic??examination.?? Given that patient does not haveany associated??chest pain, shortness of breath,??active cancer diagnosis, recent surgery or long immobilization??or unilateral leg swelling??have low concern??for DVT or PE.?EKG is also reassuring??with??NSR at 70 bpm??and no acute ST or T wave abnormalities and normal intervals. ??No previous tracing for comparison. ??Patient has distinct tenderness to palpation over??the anterior lateral??left calf muscle??which is clinically correlated with a likely calf strain versus sprain??and associated muscle spasm.?? Patient was advised to keep the affected extremity elevated while at rest, to wear??well supported, comfortable footwear and to refrain from any??high impact??activities??for the next 7 to 10 days or until symptoms have subsided.?? Patient was advised to alternate application of ice and heat and to take??ibuprofen and Tylenol for pain and inflammation as needed. ??Patient was advised??to apply khhn-ejj-drygsha Voltaren cream for inflammation and pain as needed.?? Patient was advised to call his PCP tomorrow to schedule a next available, appropriate follow-up appointment forreevaluation and possible formal outpatient??DVT ultrasound??if indicated.?? Patient was given strict return precautions. ??Patient understood plan and is agreeable thereto. ??Patient discharged home. Procedure Indication: Acute onset left calf pain Procedure: Limited, two-region extended compression venous ultrasonography was performed of the left??lower extremity. Femoral: The common femoral vein was visualized and sequentially compressed from its origin to its bifurcation and was completely compressible. The superficial and deep femoral veins were visualized and sequentially compressed and both veins??was completely compressible. Popliteal: The popliteal vein was visualized and sequentially compressed from its origin to its trifurcation and was completely compressible. Impression: Follow-up: Additional imaging is not indicated at this time Additional imaging was not ordered at this time. This study is a limited ultrasound examination performed and interpreted to evaluate for limited conditions as outlined above. There may be other clinically important information contained in the images that is outside this scope. When clinically warranted, a comprehensive ultrasound through the appropriate department is considered No Qualifying Data Assessment/Plan 1.??Strain of calf muscle??S86.819A Orders: Discharge Patient, 05/04/23 9:52:00 EST Patient Education Hamstring Strain Elastic Bandage and RICE Therapy Follow Up With When Contact Information Brendon Vivar Within [address] [place] [phone]- Additional Instructions: Medication Reconciliation Unchanged acetaminophen (Tylenol)500 Milligrams Oral (given by mouth) every 6 hours as needed as needed for pain. ?? clindamycin (clindamycin 150 mg oral capsule)3 Capsules Oral (given by mouth) every 8 hours for 7 Days. Refills: 0. Problem List/Past Medical History Ongoing No chronic problems Historical No qualifying data Allergies amoxicillin codeine penicillin Social History Electronic Cigarette/Vaping Electronic Cigarette Use: Never. Tobacco Never tobacco user Tobacco Use:. Diagnostic Results No qualifying data available. Electronically Signed on 05/05/23 02:42 AM Onelia Adler Electronically Signed on 05/05/23 02:44 AM Onelia Adler Emergency department Discharge instructions * Onelia Adler: PERFORM Event Display: ED Discharge Information Authored Date: [id number] DESIRE SANCHEZ :1995 Age:27 years Sex:Male Visit Date:05/04/2023 Primary Care Physician: Brendon Vivar Discharge Instructions We would like to thank you for allowing us to assist you with your healthcare needs. The following includes patient education materials and information regarding your injury/illness. Diagnosis from Today's Visit Strain of calf muscle Discharge Vitals Temperature??(Tympanic) 98.2 ??F (36.8 ??C) Heart Rate??(Peripheral) 91 Respiratory Rate?? 16 Blood Pressure?? 136/93?? Height?? 70.00 in (177.800 cm) Weight??(Estimated) 255.05 lb (115.67 kg) Allergies amoxicillin codeine penicillin What to Do Next Instructions from Your Care Team You were evaluated in the ED for acute onset left lower extremity pain.?? Bedside ultrasound is negative for DVT. ??Please be mindful that this is not a diagnostic study.?? Your EKG??is also reassuring??with no signs or symptoms concerning for an acute??cardiac cause for your chest discomfort.?? Atthis time your history and physical exam is clinically correlated with a likely??calf strain.?? It is important that you keep the affected extremity elevated at or above heart level while at rest, alternate application of ice and heat??and refrain from??any high impact??activities for the next 3 to5 days or until your symptoms have subsided.?? You may take 500 to 1000 mg of Tylenol every 8 hours along with??400 to 600 mg of ibuprofen.?? Please make sure you continue to take your daily omeprazole as ibuprofen can cause further??GI upset. ??It is important that you stay well-hydrated drinking least eight 8 ounce glasses of water a day and limit substances that will further dehydrate you suchas signs of alcohol, caffeine or sugary beverages.?? You may apply topical Voltaren cream which youcan obtain yask-gze-wcrdngx to the affected area for relief of pain and inflammation. ?? Please call your primary care doctor??tomorrow and schedule a next available, appropriate follow-upappointment for reevaluation and possible??formal DVT ultrasound study. ?? Please return to the ED for any new or worsening symptoms including, but not limited to: Any worsening chest pain, shortness of breath, worsening calf pain??or significant calf swelling or any other new or worsening symptoms. You Need to Schedule the Following Appointments Follow Up with??Brendon Vivar When:??Within 1 week Where: [address] [place] [id number]- You were treated today on an emergency [...] Much When Instructions Next Dose Unchanged acetaminophen (Tylenol) 500 Milligrams Oral (given by mouth) Every 6 hours as needed for as needed for pain Unchanged clindamycin (clindamycin 150 mg oral capsule) 3 Capsules Oral (given by mouth) Every 8 hours Duration: 7 Days Education Materials Hamstring Strain A hamstring strain happens when the muscles in the back of the thighs (hamstring muscles) are overstretched or torn. The hamstring muscles are used in straightening the hips, bending the knees, and pulling back the legs. This injury is often called a pulled hamstring muscle. The tissue that connects the muscle to a bone (tendon) may also be affected. The severity of a hamstring strain may be rated in degrees or grades. First- degree (or grade 1) strains have the least amount of muscle tearing and pain. Second-degree and third-degree (grade 2 and 3) strains have increasingly more tearing and pain. What are the causes? This condition is caused by a sudden, violent force being placed on the hamstring muscles, stretching them too far. This often happens during activities that involve sprinting, jumping, kicking, or weight lifting. What increases the risk? Hamstring strains are especially common in athletes. The following factors may also make you more likely to develop this condition: ? Having low strength, endurance, or flexibility of the hamstring muscles. ? Doing high-impact physical activity or sports. ? Having poor physical fitness. ? Having a previous leg injury. ? Having tired (fatigued) muscles. ? Having a previous hamstring strain. What are the signs or symptoms? Symptoms of this condition include: ? Pain in the back of the thigh or buttocks. ? Swelling. ? Bruising. ? Muscle spasms. ? Trouble moving the affected muscle because of pain. For severe strains, you may feel popping or snapping in the back of your thigh when the injury occurs. How is this diagnosed? This condition is diagnosed based on your symptoms, your medical history, and a physical exam. You may also have imaging tests, such as an MRI or X-rays. Your strain may be rated based on how severe it is. The ratings are: ? Grade 1 strain (mild). Muscles are overstretched. There may be very small muscle tears. ? Grade 2 strain (moderate). Muscles are partially torn. ? Grade 3 strain (severe). Muscles are completely torn. How is this treated? Treatment for this condition usually involves: ? Protecting, resting, icing, applying compression, and elevating the injured area (TORRES therapy). ? Medicines. Your health care provider may recommend medicines to help reduce pain or inflammation. ? Doing exercises to regain strength and flexibility in the muscles. Your health care provider will tell you when it is okay to begin exercising. Hamstring strains may take a long time to heal. This type of strain may happen again in athletes. Follow your health care provider's advice about when to return to sports-related activities. Follow these instructions at home: TORRES therapy Use TORRES therapy to promote muscle healing during the first 2???3 days after your injury, or as told by your health care provider. ? Protect the muscle from being injured again. ? Rest your injury. This usually involves limiting your normal activities and not using the injured hamstring muscle. Talk with your health care provider about how you should limit your activities. ? Apply ice to the injured area: ? Put ice in a plastic bag. ? Place a towel between your skin and the bag. ? Leave the ice on for 20 minutes, 2???3 times a day. After the third day, switch to applying heat astold. ? Put pressure (compression) on your injured hamstring by wrapping it with an elastic bandage. Be careful not to wrap it too tightly. That may interfere with blood circulation or may increase swelling. ? Raise (elevate) your injured hamstring above the level of your heart as often as possible. When youare lying down, you can do this by putting a pillow under your thigh. Activity ? Begin exercising or stretching only as told by your health care provider. ? Do not return to full activity level until your health care provider approves. ? To help prevent muscle strains in the future, always warm up before exercising and stretch afterward. General instructions ? Take [id number] and prescription medicines only as told by your health care provider. ? If directed, apply heat to the [...] a greater risk of getting burned. ? Keep all follow-up visits. This is important. Contact a health care provider if: ? You have increasing pain or swelling in the injured area. ? You have numbness, tingling, or a significant loss of strength in the injured area. Get help right away if: ? Your foot or your toes become cold or turn blue. Summary ? A hamstring strain happens when the muscles in the back of the thighs (hamstring muscles) are overstretched or torn. ? This injury can be caused by a sudden, violent force being placed on the hamstring muscles, causingthem to stretch too far. ? Symptoms include pain, swelling, and muscle spasms in the injured area. ? Treatment includes TORRES therapy: protecting, resting, icing, applying compression, and elevating the injured area. This information is not intended to replace advice given to you by your health care provider. Make sure you discuss any questions you have with your health care provider. Document Revised: 11/01/2021 Document Reviewed: 11/01/2021 [employer] Patient Education ?? 2022 [employer] Elastic Bandage and RICE Therapy Elastic bandages come in different shapes and sizes. They generally provide support to your injury and reduce swelling while you are healing, but they can perform different functions. Your health care provider will help you to decide what is best for your protection, recovery, or rehabilitation after an injury. The routine care of many injuries includes rest, ice, compression, and elevation (RICE therapy). RICE therapy is often recommended for injuries to soft tissues, such as muscle strain, sprains, bruises, and overuse injuries. It can also be used for some bone injuries. Using RICE therapy can help to relieve pain and lessen swelling. What are some general tips for using an elastic bandage? Use the bandage as directed by the maker of the bandage that you are using. ? Do not wrap the bandage too tightly. This may block (cut off) the circulation in the arm or leg in the area below the bandage. ? If part of your body beyond the bandage becomes blue, numb, cold, swollen, or more painful, your bandage is probably too tight. If this occurs, remove your bandage and reapply it more loosely. ? Remove and reapply an elastic bandage every 3???4 hours or as told by your health care provider. ? See your health care provider if the bandage seems to be making your problems worse rather than better. How to care for your injury with RICE therapy Rest Rest your injury. This may help with the healing process. Rest usually involves limiting your normal activities and not using the injured part of your body. Generally, you can return to your normal activities when your health care provider says it is okay and you can do them without much discomfort. If you rest the injury too much, it may not heal as well. Some injuries heal better with early movement instead of resting for too long. Talk with your health care provider about how you should limityour activities and whether you should start [id number] exercises for your injury. Ice Ice your injury to lessen swelling and pain. Do not apply ice directly to your skin. ? Put ice in a plastic bag. ? Place a towel between your skin and the bag. ? Leave the ice on for 20 minutes, 2???3 times a day. Use ice on as many days as told by your health care provider. Compression Put pressure (compression) on your injured area to control swelling, give support, and help with discomfort. Compression may be done with an elastic bandage. Elevation Raise (elevate) your injured area to lessen swelling and pain. If possible, elevate your injured area at or above the level of your heart or the center of your chest. Contact a health care provider if: ? Your pain and swelling continue. ? Your symptoms are getting worse rather than improving. Having these problems may mean that you need further evaluation or imaging tests, such as X-rays ginette MRI. Sometimes, X-rays may not show a small broken bone (fracture) until days after the injury happened. Make a follow-up appointment with your health care provider. Ask your health care provider,or the department that is doing the imaging test, when your results will be ready. Get help right away if: ? You have sudden severe pain at or below the area of your injury. ? You have redness or increased swelling around your injury. ? You have tingling or numbness at or below the area of your injury and it does not improve after youremove the elastic bandage. Summary ? Elastic bandages provide support to your injury and reduce swelling while you are healing. Your health care provider will help you decide which type of elastic bandage is best for your injury. ? Do not wrap the bandage too tightly. This may block (cut off) the circulation in the arm or leg in the area below the bandage. ? Putting pressure (compression) on your injured area with an elastic bandage is part of RICE therapy. RICE therapy includes rest, ice, compression, and elevation. This treatment is recommended for theroutine care of many injuries. This information is not intended to replace advice given to you by your health care provider. Make sure you discuss any questions you have with your health care provider. Document Revised: 07/28/2020 Document Reviewed: 02/20/2018 [employer] Patient Education ?? 2020 [employer] 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
--- OUTSIDE RECORDS SUMMARY | 2023-05-14 12:36 | XMS_ITS | Continuity of Care Document ---
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 Name Role Phone JARRELL HOUSER DO Primary Care Physician Encounter LTTL_ID FIN NBR [id number] Date(s): 10/17/22 - 10/17/22 [facility] [address] [place] [address]- [place] Encounter Diagnosis Cervical radiculopathy(Discharge Diagnosis) - 10/17/22 Discharge Disposition: Home f/u External Provider Attending Physician: Bryan Sheldon DO Admitting Physician: Bryan Sheldon DO Allergies, Adverse Reactions, Alerts Substance Reaction Severity Status codeine Unknown Active amoxicillin Vomiting symptom Moderate Active Medications acetaminophen 325 mg oral [...] tab, Oral, TID, PRN as needed for muscle spasm, X 5 days, # 15 tab, 0 Refill(s), 10/22/2322:42:00 EDT, Pharmacy: [id number], 177.8, cm, 10/17/22 22:25:00 EDT, Height/Length Dosing, 100, kg, 10/17/22 22:25:00 EDT, Weight Dosing Start Date: 10/17/22 Stop Date: 10/22/22 Status: Ordered FLUoxetine (Eqv-Sarafem) 20 mg oral tablet 20 mg = 1 tab, Oral, Daily, # 30 tab, 0 Refill(s) Start Date: 09/22/22 Status: Ordered ibuprofen 800 mg oral tablet 800 mg = 1 tab, Oral, every 6 hr, X 10 days, # 40 tab, 0 Refill(s), 10/27/22 23:42:00 EDT, Pharmacy: [facility], 177.8, cm, 10/17/22 22:25:00 EDT, Height/Length Dosing, 100, kg, 10/17/22 22:25:00 EDT, Weight Dosing Start Date: 10/17/22 Stop Date: 10/27/22 Status: Ordered levothyroxine 25 mcg (0.025 mg) [...] Start Date: 09/22/22 Status: Ordered Mental Status 10/17/22 Eye Opening Response Arthur Spontaneous ly Best [...] Exam Date Time Procedure Performing Provider Status 10/17/22 11:07 PM XR Spine Cervical 2 or 3 Views Sydnee Hernandez; Auth (Verified) Notes: (XR Spine Cervical 2 or 3 Views) Reason For Exam: Cervical Radiculopathy - evaluate for lytic lesions XR Spine Cervical 2 or 3 Views EXAM DESCRIPTION: XR Spine Cervical 2 or 3 Views 10/17/2022 INDICATION: CERVICAL RADICULOPATHY - EVALUATE FOR LYTIC LESIONS COMPARISON: None IMPRESSION: No acute fracture or subluxation. Prevertebral soft tissues are within normal limits No significant spondylotic changes. Intervertebral disc spaces are well maintained throughout the cervical region No focal lytic or sclerotic lesion. Postsurgical changes overlying the anterior lower cervical region. JOB #: [id number] Final Signed by: John Burciaga MD Signed (Electronic Signature): 10/18/2022 6:03 am Vital Signs Most recent to oldest [Reference Range]: 1 Temperature Temporal Artery [36-38 Deg C ] 37 Deg C (10/17/22 10:03 PM) Peripheral Pulse Rate [60-100 bpm] 92 bp m (10/17/22 10:03 PM) Respiratory Rate [12-24 br/min] 16 br/mi n (10/17/22 10:03 PM) Blood Pressure [90-140/60-90 mmHg] 121/8 5mmHg (10/17/22 10:03 PM) Weight Dosing 100.00 kg (10/17/22 10:25 PM) Weight Estimated 100.00 kg (10/17/22 10:03 PM) Height/Length Dosing 177.800 cm (10/17/22 10:25 PM) Height/Length Estimated 177.800 cm (10/17/22 10:03 PM) Social History Social History Type Response Tobacco Never tobacco user T obacco Use:. Sex Hospital Discharge Instructions Patient Education 10/17/2022 22:34:56 Cervical Radiculopathy Cervical Radiculopathy Cervical radiculopathy happens when a nerve in the neck (a cervical nerve) is pinched or bruised. This condition can happen because of an injury to the cervical spine (vertebrae) in the neck, or as part of the normal aging process. Pressure on the cervical nerves can cause pain or numbness that travels from the neck all the way down into the arm and fingers. Usually, this condition gets better with rest. Treatment may be needed if the condition does not improve. What are the causes? This condition may be caused by: ??? A neck injury. ??? A bulging (herniated) disk. ??? Muscle spasms. ??? Muscle tightness in the neck because of overuse. ??? Arthritis. ??? Breakdown or degeneration in the bones and joints of the spine (spondylosis) due to aging. ??? Bone spurs that may develop near the cervical nerves. What are the signs or symptoms? Symptoms of this condition include: ??? Pain. The pain may travel from the neck to the arm and hand. The pain can be severe or irritating. It may be worse when you move your neck. ??? Numbness or tingling in your arm or hand. ??? Weakness in the affected arm and hand, in severe cases. How is this diagnosed? This condition may be diagnosed based on your symptoms, your medical history, and a physical exam. You may also have tests, including: ??? X-rays. ??? A CT scan. ??? An MRI. ??? An electromyogram (EMG). ??? Nerve conduction tests. How is this treated? In many cases, treatment is not needed for this condition. With rest, the condition usually gets better over time. If treatment is needed, options may include: ??? Wearing a soft neck collar (cervical collar) for short periods of time, as told by your health care provider. ??? Doing physical therapy to strengthen your neck muscles. ??? Taking medicines, such as NSAIDs or oral corticosteroids. ??? Having spinal injections, in severe cases. ??? Having surgery. This may be needed if other treatments do not help. Different types of surgery may be done depending on the cause of this condition. Follow these instructions at home: If you have a cervical collar: ??? Wear it as told by your health care provider. Remove it only as told by your health care provider. ??? Ask your health care provider if you can remove the collar for cleaning and bathing. If you areallowed to remove the collar for cleaning or bathing: ??? Follow instructions from your health care provider about how to remove the collar safely. ??? Clean the collar by wiping it with mild soap and water and drying it completely. ??? Take out any removable pads in the collar every 1???2 days, and wash them by hand with soap andwater. Let them air-dry completely before you put them back in the collar. ??? Check your skin under the collar for irritation or sores. If you see any, tell your health careprovider. Managing pain ??? Take zysw-xli-usyyfcv and prescription medicines only as told by your health care provider. ??? If directed, put ice on the affected area. ??? If you have a soft neck collar, remove it as told by your health care provider. ??? Put ice in a plastic bag. ??? Place a towel between your skin and the bag. ??? Leave the ice on for 20 minutes, 2???3 times a day. ??? If applying ice does not help, you can try using heat. Use the heat source that your health [...] a greater risk of getting burned. ??? Try a gentle neck and shoulder massage to help relieve symptoms. Activity ??? Rest as needed. ??? Return to your normal activities as told by your health care provider. Ask your health care provider what activities are safe for you. ??? Do stretching and strengthening exercises as told by your health care provider or physical therapist. ??? Do not lift anything that is heavier than 10 lb (4.5 kg) until your health care provider tells you that it is safe. General instructions ??? Use a flat pillow when you sleep. ??? Do not drive while wearing a cervical collar. If you do not have a cervical collar, ask your health care provider if it is safe to drive while your neck heals. ??? Ask your health care provider if the medicine prescribed to you requires you to avoid driving or using heavy machinery. ??? Do not use any products that contain nicotine or tobacco, such as cigarettes, e-cigarettes, andchewing tobacco. These can delay healing. If you need help quitting, ask your health care provider. ??? Keep all follow-up visits as told by your health care provider. This is important. Contact a health care provider if: ??? Your condition does not improve with treatment. Get help right away if: ??? Your pain gets much worse and cannot be controlled with medicines. ??? You have weakness or numbness in your hand, arm, face, or leg. ??? You have a high fever. ??? You have a stiff, rigid neck. ??? You lose control of your bowels or your bladder (have incontinence). ??? You have trouble with walking, balance, or speaking. Summary ??? Cervical radiculopathy happens when a nerve in the neck is pinched or bruised. ??? A nerve can get pinched from a bulging disk, arthritis, muscle spasms, or an injury to the neck. ??? Symptoms include pain, tingling, or numbness radiating from the neck into the arm or hand. Weakness can also occur in severe cases. ??? Treatment may include rest, wearing a cervical collar, and physical therapy. Medicines may be prescribed to help with pain. In severe cases, injections or surgery may be needed. This information is not intended to replace advice given to you by your health care provider. Make sure you discuss any questions you have with your health care provider. Document Revised: 04/23/2019 Document Reviewed: 04/23/2019 [employer] Patient Education ?? 2021 [employer]. Follow Up Care 10/17/2022 22:03:50 With:JARRELL HOUSER DO Address: [facility] [address] [place] [address] [phone] When:1 week Comments:I believe you have underlying cervical radiculopathy or what is??known as a pinched nerve in your neck.?? Neck steps??would be MRI imaging of your neck??to look at the??impingement??severity.?? Please take cyclobenzaprine 10 mg 3 times daily as needed for muscle spasm. ??Please also use ibuprofen 800 mg every 6 hours with food. ??Continue your??underlying other medications.?? Try not to take??benzodiazepine, cyclobenzaprine or methadone at the same time.?? Return to the emergency department anynew or worsening symptoms or for any concerns you may have. Discharge instructions * Event Display: Discharge Instructions Physician Emergency department Note * Bryan Sheldon DO: PERFORM Event Display: ED Note Physician Authored Date: [id number] DESIRE SANCHEZ :1995 Age:27 years Sex:Male Visit Date:10/17/2022 Primary Care Physician: JARRELL HOUSER DO Basic Information Time Seen: Bryan Sheldon DO / 10/17/2022 22:06 Chief Complaint Patient reports pain radiating down the left arm when turning his head to the left with fatigue andconcentration difficulties. History Of Present Illness: This is a 27-year-old male with complex past medical history as documented to the right presents tot emergency department with concerns of cervical radiculopathy.?? He states he has??searing??hot poker type discomfort across his left trapezius musculature and down his entire left arm??for the past several months.?? He is currently scheduled for??myelogram by his PCP.?? He states his left arm becomes??intensely uncomfortable especially when he side bends and rotates to the left.?? He states the pain is starting to give him??fatigue??as it is unrelenting??and causing concentration difficulties.?? No fevers/chills. ??No history of intravenous drug use. ??No history of cervical spine surgical intervention or spine surgical intervention for that matter.?? No focal neurologic deficit. ??No motor deficit. Review of Systems: CONSTITUTIONAL: _No weight loss, fever, chills, weakness or fatigue SKIN: _No rash, no itching, no jaundice EYES: _No visual loss, blurred vision, double vision or scleral icterus ENT: _No ear pain; patent nares without bleeding or congestion; no sore throat CARDIOLOGY: _No chest pain, No edema, No palpitations PULMONOLOGY: _No pleuritic chest pain, No dwybydevw-rn-xstgts, No cough, No hemoptysis ABDOMEN:_no nausea, no vomiting, no abdominal pain, no melena, no hematochezia :_no dysuria, no urinary frequency, no urinary urgency NEURO:_No focal neurological deficit, no headache, no dizziness ?? REST OF REVIEW OF SYSTEMS IS NEGATIVE PERTAINS TO CHIEF COMPLAINT Physical Exam Vitals & Measurements T:??37?C ??(Temporal Artery)?? HR:??92??(Peripheral)?? RR:??16?? BP:??121/85?? SpO2:??98%?? HT:??177.800??cm?? WT:??100.00??kg??(Estimated)?? O2 Therapy:??Room air?? GENERAL: This is a chronically ill-appearing young male??with flat affect, depressed mood??resting semi-hussein??in the hospital bed with c/o left cervical radiculopathy.?? I asked him to grasp a piece of paper it appears to be strong bilaterally. SKIN: Warm and dry. No rash. HEENT: Normocephalic, atraumatic. ??PERRLA, EOMI, no conjunctival injection, no scleral icterus. ??TMs not examined. ??Nares are without congestion or rhinorrhea. ??No posterior pharyngeal erythema or tonsillar exudate. ??Dentition grossly intact. ??Mucous membranes are dry with dry lips NECK: Supple. No midline tenderness. No JVD. No thyromegaly. Dynamic ROM against resistance intact. HEART: Regular rate and rhythm. ??S1 and S2. No murmur. LUNGS: Clear to auscultation bilaterally. ??No respiratory distress. ABDOMEN: Non-distended, non-tender without guarding, rebound or rigidity. ??Cedillo sign negative. ??No McBurney's point tenderness. ??Psoas negative. ??Obturator negative. ??Rovsing sign negative. BACK: No midline TLS spine tenderness. ??No CVAT. ??No SI tenderness. EXTREMITIES: No unilateral leg swelling or posterior calf tenderness. No edema. NEUROLOGIC: GCS 15. CN III-XII intact without acute focal neurological deficit. Medical Decision Making: Left-sided cervical radiculopathy. ??Will obtain screening??cervical spine x-ray to rule out any lytic lesions, subluxation or fracture.?? I have a low pretest probability of any of these.?? We will start treatment with??ibuprofen??800 mg every 6 hours, as needed cyclobenzaprine 10 mg, and topical lidocaine patches.?? He is already on methadone??and??did not want any further opiate therapy.?? I be lieve the next course of action for this gentleman is to obtain MRI imaging of cervical spine whichhe indicates he will discuss with his PCP this week.?? He had improvement in??his pain with treatments provided in the emergency department. ??All questions were answered. ??Patient was eager for discharge home. ??Patient expressed understanding of disposition. Procedure No Qualifying Data Assessment/Plan 1.??Cervical radiculopathy??M54.12 Ordered: ibuprofen 800 mg oral tablet, 800 mg = 1 tab, Oral, every 6 hr, X 10 days, # 40 tab, 0 Refill(s), 10/27/22 23:42:00 EDT, Pharmacy: [facility], 177.8, cm, 10/17/22 22:25:00 EDT, Height/Length Dosing, 100, kg, 10/17/22 22:25:00 EDT, Weight Dosing ?? Orders: cyclobenzaprine 10 mg oral tablet, 10 mg = 1 tab, Oral, TID, PRN as needed for muscle spasm, X 5 days, # 15 tab, 0 Refill(s), 10/22/22 23:42:00 EDT, Pharmacy: [facility], 177.8, cm, 10/17/22 22:25:00 EDT, Height/Length Dosing, 100, kg, 10/17/22 22:25:00 EDT, Weight Dosing Patient Education Cervical Radiculopathy Follow Up With When Contact Information JARRELL HOUSER DO Within 1 week [facility] [address] [place] [phone]- Additional Instructions: I believe you have underlying cervical radiculopathy or what is??known as a pinched nerve in your neck.?? Neck steps??would be MRI imaging of your neck??to look at the??impingement??severity.?? Please take cyclobenzaprine 10 mg 3 times daily as needed for muscle spasm. ??Please also use ibuprofen 800 mg every 6 hours with food. ??Continue your??underlying other medications.?? Try not to take??benzodiazepine, cyclobenzaprine or methadone at the same time.?? Return to theemergency department any new or worsening symptoms or for any concerns you may have. Medication Reconciliation New Prescription cyclobenzaprine (cyclobenzaprine 10 mg oral tablet)1 tab Oral (given by mouth) 3 times a day as needed as needed for muscle spasm for 5 Days. Refills: 0. ?? ibuprofen (ibuprofen 800 mg oral tablet)1 tab Oral (given by mouth) every 6 hours for 10 Days. Refills: 0. ?? Changed methadone (methadone 10 mg/5 mL oral solution)60mls Oral (given by mouth) every morning as needed as needed for pain. ?? Unchanged acetaminophen (acetaminophen 325 mg oral [...] Oral (given by mouth) every day. ?? levothyroxine (levothyroxine 25 mcg (0.025 mg) oral capsule)1 Capsules Oral (given by mouth) every day. ?? 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 Cause of : Diagnostic Results XR Spine Cervical 2 or 3 Views 10/18/2022 06:05 EDT XR Spine Cervical 2 or 3 Views ?? 10/18/22 06:03:07 EXAM DESCRIPTION: XR Spine Cervical 2 or 3 Views ?? 10/17/2022 ?? INDICATION: CERVICAL RADICULOPATHY - EVALUATE FOR LYTIC LESIONS ?? COMPARISON: None ?? IMPRESSION: No acute fracture or subluxation. Prevertebral soft tissues are within normal limits ?? No significant spondylotic changes. Intervertebral disc spaces are well maintained throughout the cervical region ?? No focal lytic or sclerotic lesion. ?? Postsurgical changes overlying the anterior lower cervical region. ? JOB #: [id number] Bryan Sheldon DO Emergency department Discharge instructions * Bryan Sheldon DO: PERFORM Event Display: ED Discharge Information Authored Date: [id number] DESIRE SANCHEZ :1995 Age:27 years Sex:Male Visit Date:10/17/2022 Primary Care Physician: JARRELL HOUSER DO Discharge Instructions We would like to thank you for allowing us to assist you with your healthcare needs. The following includes patient education materials and information regarding your injury/illness. Diagnosis from Today's Visit Cervical radiculopathy Discharge Vitals Temperature??(Temporal Artery) 98.6 ??F (37 ??C) Heart Rate??(Peripheral) 92 Respiratory Rate?? 16 Blood Pressure?? 121/85?? Height?? 70.00 in (177.800 cm) Weight??(Estimated) 220.50 lb (100.00 kg) Allergies amoxicillin??(Vomiting symptom) codeine What to Do Next You Need to Schedule the Following Appointments Follow Up with??CORRINA AVILA, JARRELL MEYER When:??Within 1 week Why: I believe you have underlying cervical radiculopathy or what is??known as a pinched nerve in your neck.?? Neck steps??would be MRI imaging of your neck??to look at the??impingement??severity.?? Please take cyclobenzaprine 10 mg 3 times daily as needed for muscle spasm. ??Please also use ibuprofen 800 mg every 6 hours with food. ??Continue your??underlying other medications.?? Try not to take??benzodiazepine, cyclobenzaprine or methadone at the same time.?? Return to the emergency department any new or worsening symptoms or for any concerns you may have. Where: [facility] [address] [place] [phone]- You were treated today on an [...] Much When Why Instructions Next Dose New cyclobenzaprine (cyclobenzaprine 10 mg oral tablet) 1 tab Oral (given by mouth) 3 times a day as needed for as needed for muscle spasm Duration: 5 Days Pickup at [facility] New ibuprofen (ibuprofen 800 mg oral tablet) 1 tab Oral (given by mouth) Every 6 hours Cervical radiculopathy Duration: 10 Days Pickup at [facility] Changed methadone (methadone 10 mg/ 5 mL oral solution) 60mls Oral (given by mouth) Every morning as needed for as needed for pain Unchanged acetaminophen (acetaminophen 325 mg oral capsule) [...] Oral (given by mouth) Every day Unchanged levothyroxine (levothyroxine 25 mcg (0.025 mg) oral capsule) 1 Capsules Oral (given by mouth) Every day Unchanged magnesium gluconate (Mag-G) Pharmacy Information [facility]: [address] [place], [place] [phone] Education [employer] Cervical Radiculopathy Cervical radiculopathy happens when a nerve in the neck (a cervical nerve) is pinched or bruised. This condition can happen because of an injury to the cervical spine (vertebrae) in the neck, or as part of the normal aging process. Pressure on the cervical nerves can cause pain or numbness that travels from the neck all the way down into the arm and fingers. Usually, this condition gets better with rest. Treatment may be needed if the condition does not improve. What are the causes? This condition may be caused by: ? A neck injury. ? A bulging (herniated) disk. ? Muscle spasms. ? Muscle tightness in the neck because of overuse. ? Arthritis. ? Breakdown or degeneration in the bones and joints of the spine (spondylosis) due to aging. ? Bone spurs that may develop near the cervical nerves. What are the signs or symptoms? Symptoms of this condition include: ? Pain. The pain may travel from the neck to the arm and hand. The pain can be severe or irritating. It may be worse when you move your neck. ? Numbness or tingling in your arm or hand. ? Weakness in the affected arm and hand, in severe cases. How is this diagnosed? This condition may be diagnosed based on your symptoms, your medical history, and a physical exam. You may also have tests, including: ? X-rays. ? A CT scan. ? An MRI. ? An electromyogram (EMG). ? Nerve conduction tests. How is this treated? In many cases, treatment is not needed for this condition. With rest, the condition usually gets better over time. If treatment is needed, options may include: ? Wearing a soft neck collar (cervical collar) for short periods of time, as told by your health careprovider. ? Doing physical therapy to strengthen your neck muscles. ? Taking medicines, such as NSAIDs or oral corticosteroids. ? Having spinal injections, in severe cases. ? Having surgery. This may be needed if other treatments do not help. Different types of surgery may be done depending on the cause of this condition. Follow these instructions at home: If you have a cervical collar: ? Wear it as told by your health care provider. Remove it only as told by your health care provider. ? Ask your health care provider if you can remove the collar for cleaning and bathing. If you are allowed to remove the collar for cleaning or bathing: ? Follow instructions from your health care provider about how to remove the collar safely. ? Clean the collar by wiping it with mild soap and water and drying it completely. ? Take out any removable pads in the collar every 1???2 days, and wash them by hand with soap and water. Let them air-dry completely before you put them back in the collar. ? Check your skin under the collar for irritation or sores. If you see any, tell your health care provider. Managing pain ? Take pgdc-wut-mzsajsh and prescription medicines only as told by your health care provider. ? If directed, put ice on the affected area. ? If you have a soft neck collar, remove it as told by your health care provider. ? Put ice in a plastic bag. ? Place a towel between your skin and the bag. ? Leave the ice on for 20 minutes, 2???3 times a day. ? If applying ice does not help, you can try using heat. Use the heat source that your health [...] a greater risk of getting burned. ? Try a gentle neck and shoulder massage to help relieve symptoms. Activity ? Rest as needed. ? Return to your normal activities as told by your health care provider. Ask your health care provider what activities are safe for you. ? Do stretching and strengthening exercises as told by your health care provider or physical therapist. ? Do not lift anything that is heavier than 10 lb (4.5 kg) until your health care provider tells you that it is safe. General instructions ? Use a flat pillow when you sleep. ? Do not drive while wearing a cervical collar. If you do not have a cervical collar, ask your healthcare provider if it is safe to drive while your neck heals. ? Ask your health care provider if the medicine prescribed to you requires you to avoid driving or using heavy machinery. ? Do not use any products that contain nicotine or tobacco, such as cigarettes, e- cigarettes, and chewing tobacco. These can delay healing. If you need help quitting, ask your health care provider. ? Keep all follow-up visits as told by your health care provider. This is important. Contact a health care provider if: ? Your condition does not improve with treatment. Get help right away if: ? Your pain gets much worse and cannot be controlled with medicines. ? You have weakness or numbness in your hand, arm, face, or leg. ? You have a high fever. ? You have a stiff, rigid neck. ? You lose control of your bowels or your bladder (have incontinence). ? You have trouble with walking, balance, or speaking. Summary ? Cervical radiculopathy happens when a nerve in the neck is pinched or bruised. ? A nerve can get pinched from a bulging disk, arthritis, muscle spasms, or an injury to the neck. ? Symptoms include pain, tingling, or numbness radiating from the neck into the arm or hand. Weaknesscan also occur in severe cases. ? Treatment may include rest, wearing a cervical collar, and physical therapy. Medicines may be prescribed to help with pain. In severe cases, injections or surgery may be needed. This information is not intended to replace advice given to you by your health care provider. Make sure you discuss any questions you have with your health care provider. Document Revised: 04/23/2019 Document Reviewed: 04/23/2019 Elsevier Patient Education ?? 2021 [employer] Tests Performed Medications and Immunizations Administered Given cyclobenzaprine, 10 mg, Oral ibuprofen, 800 mg, Oral lidocaine 5% topical film, 2 patches, TD Tylenol, 1000 mg, Oral Patient/Clerical And Administrative Workers Signature Patient Name:DESIRE SANCHEZ I have received this information and my questions have been answered. Patient/Clerical And Administrative Workers Name: Patient/Clerical And Administrative Workers Signature: Relationship to Patient: Witness Name/Signature: Date: Electronically Signed on: 10/17/2022 23:44 EDTSigned by:KIA XR Cervical spine 2 or 3 Views * John Burciaga MD: VERIFY, VERIFY Event Display: Report EXAM DESCRIPTION: XR Spine Cervical 2 or 3 Views 10/17/2022 INDICATION: CERVICAL RADICULOPATHY - EVALUATE FOR LYTIC LESIONS COMPARISON: None IMPRESSION: No acute fracture or subluxation. Prevertebral soft tissues are within normal limits No significant spondylotic changes. Intervertebral disc spaces are well maintained throughout the cervical region No focal lytic or sclerotic lesion. Postsurgical changes overlying the anterior lower cervical region. JOB #: [id number] Final Signed by: John Burciaga MD Signed (Electronic Signature): 10/18/2022 6:03 am Patient Care team information Care Team Personnel Name: JARRELL HOUSER DO Position: No Access Member Role: Primary Care Physician Address: Address: [address] [address] Name: Alf Zambrano Position: Nurse Member Role: ED Nurse Name: Bryan Sheldon DO Position: Physician Member Role: Admitting Physician Address: Address: [address] [place] [id number] [place] Care Team Related Persons Name: MILLER SANCHEZ
--- OUTSIDE RECORDS SUMMARY | 2023-05-14 12:36 | XMS_ITS | Continuity of Care Document ---
Author Name Unknown Organization [facility] Address [address] [place] [id number] Care Team Providers Care Boarder Hand Name Role Phone JARRELL HOUSER DO Primary Care Physician Encounter LTTL_AZ FIN NBR [id number] Date(s): 12/18/22 - 12/18/[address] [address] Encounter Diagnosis Chest wall pain(Discharge Diagnosis) - 12/18/22 Discharge Disposition: Home or Self Care Attending Physician: Berto Davis MD Admitting Physician: Berto Davis MD Allergies, Adverse Reactions, Alerts Substance Reaction Severity Status codeine Unknown Active amoxicillin Vomiting symptom Moderate Active Functional Status 12/18/22 Other exposure to Infectious Disease Non e [...] forms, # 12 cap, 0 Refill(s), Pharmacy: [facility], 178, cm, 12/18/22 13:10:00 EDT, Height/Length [...] Laboratory List Name Date CBC w/ Diff 12/18/22 Comprehensive Metabolic Panel (CMP) D-Dimer 12/18/22 Lipase Level 12/18/22 Sedimentation Rate (ESR) 12/18/22 Troponin-I 12/18/22 Automated Diff 12/18/22 Most recent to oldest [Reference Range]: 1 WBC [4.8-10.8 K/mcL] 9.7 K/mcL (12/18/22 1:32 PM) RBC [4.20-6.10 Million/mcL] 3.80 Million /mcL *LOW* (12/18/22 1:32 PM) Neutro Auto [42.2-75.2 %] 51.9 % (12/18/22 1:32 PM) Lymph Auto [20.5-51.1 %] 35.2 % (12/18/22 1:32 PM) [place] Auto [1.7-9.3 %] 9.6 % *HI* (12/18/22 1:32 PM) Basophil Auto [0.0-0.8 %] 0.6 % (12/18/22 1:32 PM) BUN [8-26 mg/dL] 23 mg/dL (12/18/22 1:32 PM) Glucose Level [74-106 mg/dL] 97 mg/dL (12/18/22 1:32 PM) Potassium Level [3.5-5.1 mmol/L] 3.7 mmo l/L (12/18/22 1:32 PM) Baso Absolute [0.0-0.2 K/mcL] 0.1 K/mcL (12/18/22 1:32 PM) MCV [80.0-94.0 fL] 92.6 fL (12/18/22 1:32 PM) AST [15-41 IntlUnit/L] 30 IntlUnit/L (12/18/22 1:32 PM) ALT [17-63 IntlUnit/L] 46 IntlUnit/L (12/18/22 1:32 PM) MCHC [32.0-36.0 g/dL] 34.1 g/dL (12/18/22 1:32 PM) Osmolality [275-295 mOsm/kg] 277 mOsm/kg (12/18/22 1:32 PM) Troponin-I [<=0.05 ng/mL] 0.01 ng/mL 1 (12/18/22 1:32 PM) Sodium Level [134-143 mmol/L] 137 mmol/L (12/18/22 1:32 PM) Lymph Absolute [1.2-3.4 K/mcL] 3.4 K/mcL (12/18/22 1:32 PM) Hct [42.0-52.0 %] 35.2 % *LOW* (12/18/22 1:32 PM) Lipase Level [18-51 unit/L] 25 unit/L 2 (12/18/22 1:32 PM) Calcium Level [8.9-10.3 mg/dL] 8.6 mg/dL *LOW* (12/18/22 1:32 PM) [place] Absolute [0.1-0.6 K/mcL] 0.9 K/mcL *HI* (12/18/22 1:32 PM) Albumin Level [3.5-5.0 g/dL] 3.6 g/dL (12/18/22 1:32 PM) Protein Total [6.5-8.1 g/dL] 7.5 g/dL (12/18/22 1:32 PM) MCH [27.0-31.0 pg] 31.6 pg *HI* (12/18/22 1:32 PM) Neutro Absolute [1.4-6.5 K/mcL] 5.0 K/mc L (12/18/22 1:32 PM) Bilirubin Total [0.2-1.2 mg/dL] 0.3 mg/d L (12/18/22 1:32 PM) Hgb [14.0-18.0 g/dL] 12.0 g/dL *LOW* (12/18/22 1:32 PM) Alk Phos [38-130 IntlUnit/L] 90 IntlUnit /L (12/18/22 1:32 PM) MPV [7.4-10.4 fL] 11.3 fL *HI* (12/18/22 1:32 PM) Platelets [130-400 K/mcL] 260 K/mcL (12/18/22 1:32 PM) CO2 [22-32 mmol/L] 29 mmol/L (12/18/22 1:32 PM) Eos Absolute [0.0-0.2 K/mcL] 0.2 K/mcL (12/18/22 1:32 PM) Chloride Level [98-111 mmol/L] 97 mmol/L *LOW* (12/18/22 1:32 PM) RDW-CV [11.5-14.5 %] 12.6 % (12/18/22 1:32 PM) A/G Ratio 0.9 *NA* (12/18/22 1:32 PM) BUN/Creat Ratio [8.0-20.0] 16.7 (12/18/22 1:32 PM) Globulin 3.9 *NA* (12/18/22 1:32 PM) Imm Gran Absolute 0.03 *NA* (12/18/22 1:32 PM) Imm Gran Auto [0.0-0.5 %] 0.3 % (12/18/22 1:32 PM) Slide Review Not Indicated (12/18/22 1:32 PM) Creatinine Level [0.61-1.24 mg/dL] 1.38 mg/dL *HI* (12/18/22 1:32 PM) Anion Gap [3.0-12.0] 11.0 (12/18/22 1:32 PM) D Dimer, (Quant.) [<=500 ng/mL] 312 ng/m L 3 (12/18/22 1:32 PM) Eos, Auto [0.00-3.00 %] 2.40 % (12/18/22 1:32 PM) eGFR CKD-EPI [>=60 mL/min/1.73 m2] 71 mL /min/1.73 m2 (12/18/22 1:32 PM) ESR, Westergren [0-15 mm/hr] 31 mm/hr *HI* (12/18/22 1:32 PM) 1Interpretive Data: Elevated levels of Troponin I are detectable in plasma within 3-6 hours after onset of myocardial infarction, reach peak concentrations in approximately 12-16 hours, and remain elevated for 4-9 days following an AMI. Any conditions resulting in myocardial damage can potentially increase cardiac Troponin I levels above the expected values. Clinical studies have documented these conitions to include: unstable angina, congestive heart failure, myocarditis, cardiac surgery, or invasive testing proedures. Arteritits, coronary embolism, and cocaine or amphetamine use potentially lead to elevated levels. 2Interpretive Data: Z-abalym-y-benzoquinone imine (meabolite of Acetaminophen) will generate erroneously low lipase results in samples for patients that have taken toxic doses of acetaminophen. 3Interpretive Data: A normal D-dimer result (< or =500 ng/mL FEU) has a negative predicitive value of approximately 95% for the exclusion of acute embolism (PE) or deep vein thrombosis when there is low or moderate pretest PE probability. Radiology Reports * Exam Date Time Procedure Performing Provider Status 12/18/22 1:39 PM XR Chest 1 View Preethi Erna E; Auth (V erified) Notes: (XR Chest 1 View) Reason For Exam: pain XR Chest 1 View PROCEDURE INFORMATION: Exam: XR Chest Exam date and time: 12/18/2022 1:34 PM Age: 27 years old Clinical indication: Other: Unspecified chest pain TECHNIQUE: Imaging protocol: Radiologic exam of the chest. Views: 1 view. COMPARISON: CR XR CHEST, 2 VIEWS 12/13/2022 9:49 AM FINDINGS: Lungs: Lungs are well aerated without a focal area of consolidation. Pleural spaces: Unremarkable. No pleural effusion. No pneumothorax. Heart/Mediastinum: Unremarkable. No cardiomegaly. Bones/joints: Unremarkable. IMPRESSION: Lungs are well aerated without a focal area of consolidation. THIS DOCUMENT HAS BEEN ELECTRONICALLY SIGNED BY RANULFO YOUNG MD on 12/18/2022 01:45 PM Final Signed by: Ranulfo Young MD Signed (Electronic Signature): 12/18/2022 1:45 pm Vital Signs Most recent to oldest [Reference Range]: 1 2 3 Temperature Temporal Artery [36-38 Deg C] 36.0 Deg C (12/18/22 12:59 PM) Peripheral Pulse Rate [60-100 bpm] 91 bpm (12/18/22 12:59 PM) Heart Rate Monitored [60-100 bpm] 85 bpm (12/18/22 3:00 PM) 89 bpm (12/18/22 2:45 PM) 80 bpm (12/18/22 2:30 PM) Respiratory Rate [12-24 br/min] 16 br/min (12/18/22 3:00 PM) 16 br/min (12/18/22 2:45 PM) 20 br/min (12/18/22 2:30 PM) Blood Pressure [90-140/60-90 mmHg] 109/55mmHg (12/18/22 3:00 PM) 100/57mmHg (12/18/22 2:45 PM) 102/66mmHg (12/18/22 2:30 PM) Mean Arterial Pressure Cuff 70 mmHg (12/18/22 3:00 PM) 70 mmHg (12/18/22 2:45 PM) 77 mmHg (12/18/22 2:30 PM) Weight Dosing 105.00 kg (12/18/22 1:10 PM) Weight Estimated 105.00 kg (12/18/22 12:59 PM) Height/Length Dosing 178.000 cm (12/18/22 1:10 PM) Height/Length Estimated 178.000 cm (12/18/22 12:59 PM) Social History Social History Type Response Tobacco Never tobacco user T obacco Use:. Sex Hospital Discharge Instructions Patient Education 12/18/2022 14:17:39 Chest Wall Pain Chest Wall Pain Chest [...] safe for you. General instructions ??? Take ruja-bqh-[id number] and prescription medicines only as told by [...] provider. Document Revised: 08/17/2021 Document Reviewed: 08/17/2021 [employer] Patient Education ?? 2021 [employer] Discharge instructions * Event Display: Discharge Instructions Physician Emergency department Note * Berto Davis MD: PERFORM Event Display: ED Note Physician Authored Date: [id number] LAURA DESIRE :1995 Age:27 years Sex:Male Visit Date:12/18/2022 Primary Care Physician: JARRELL HOUSER DO Basic Information Time Seen: Berto Davis MD / 12/18/2022 13:05 Chief Complaint pt reports CP, nausea, diaphoresis for several days History Of Present Illness: Patient is here with??continued complaints of??chest wall pain. ??He was seen here several weeks ago and had negative work-up. ??He states??pain is worse with taking deep breath or twisting. ??He states there is a specific spot on the anterior lower chest. ??Denies any abdominal pain denies nausea or vomiting??cough fever chills??but has had occasional nausea.?? He tells me he is sleeping??without difficulties. Review of Systems: Review of systems negative other than that stated above Physical Exam Vitals & Measurements T:??36.0?C ??(Temporal Artery)?? HR:??85??(Monitored)?? RR:??16?? BP:??109/55?? SpO2:??97%?? HT:??178.000??cm?? WT:??105.00??kg??(Estimated)?? Pain Score:??1?? O2 Therapy:??Room air?? General: Alert and oriented, well nourished, no acute distress. Eye: PERRL, EOMI, normal conjunctiva. HENT: Normocephalic,??normal hearing, moist oral mucosa, no scleral icterus, . Neck: Supple, non-tender, no carotid bruits, no JVD, no lymphadenopathy. No rigidity Lungs: Clear to auscultation and percussion, non-labored respiration. ??There is a little bit of lower anterior sternal??and xiphoid tenderness with palpation. ??No crepitus or emphysema Heart: Normal rate, regular rhythm, no murmur, [...] Procedure No Qualifying Data Reexamination/Reevaluation Patient given injection of Toradol after which she fell asleep. ??When he woke up he states he feltbetter. ??I told him I still??do not see any added??evidence of acute process. ??I do think this ismusculoskeletal. ??He is prescribed limited amount of Toradol. ??He will follow-up with regular doctor return for worsening symptoms Assessment/Plan 1.??Chest wall pain??R07.89 Orders: ketorolac 10 mg oral tablet, 10 mg = 1 tab, Oral, every 6 hr, PRN as needed for pain, not to [id number] mg/day and 5 days duration for all dose forms, # 12 cap, 0 Refill(s), Pharmacy: [facility], 178, cm, 12/18/22 13:10:00 EDT, Height/Length Dosing, 105, kg, 12/18/22 13:10:0... CV Electrocardiogram 12 Lead, 12/18/22 13:22:00 EDT, Stat, Reason: Chest Pain, Stop date and time 12/18/22 13:22:00 EDT, ORD_SET_REQ_DT_RANGE, Siri Internal Person Id Discharge Patient, 12/18/22 15:16:00 EDT Patient Education Chest Wall Pain Medication Reconciliation New Prescription ketorolac (ketorolac 10 mg oral tablet)1 tab Oral (given by mouth) every 6 hours as needed as needed for pain. not to exceed 40 mg/day and 5 days duration for all dose forms. Refills: 0. ?? Unchanged acetaminophen (acetaminophen 325 [...] : Diagnostic Results XR Chest 1 View 12/18/2022 13:46 EDT XR Chest 1 View ?? 12/18/22 13:34:26 PROCEDURE INFORMATION: Exam: XR Chest Exam date and time: 12/18/2022 1:34 PM Age: 27 years old Clinical indication: Other: Unspecified chest pain ?? TECHNIQUE: Imaging protocol: Radiologic exam of the chest. Views: 1 view. ?? COMPARISON: CR XR CHEST, 2 VIEWS 12/13/2022 9:49 AM ?? FINDINGS: Lungs: Lungs are well aerated without a focal area of consolidation. Pleural spaces: Unremarkable. No pleural effusion. No pneumothorax. Heart/Mediastinum: Unremarkable. No cardiomegaly. Bones/joints: Unremarkable. ?? IMPRESSION: Lungs are well aerated without a focal area of consolidation. ? THIS DOCUMENT HAS BEEN ELECTRONICALLY SIGNED BY RANULFO YOUNG MD on 12/18/2022 01:45 PM ?? Signed By: Ranulfo Young MD ECG Sinus rhythm??at 93 without acute changes Diagnostic Study Interpretation: Chest x-ray without acute process Lab Results CBC and Differential?? LATEST RESULTS?? HISTORICAL RESULTS?? WBC?? 12/18/22 13:32?? 9.7?? 10/23/22?? 8.7?? RBC?? 12/18/22 13:32?? 3.80 ??Low?? 10/23/22?? 3.52 ??Low?? Hgb?? 12/18/22 13:32?? 12.0 ??Low?? 10/23/22?? 11.1 ??Low?? Hct?? 12/18/22 13:32?? 35.2 ??Low?? 10/23/22?? 32.2 ??Low?? MCV?? 12/18/22 13:32?? 92.6?? 10/23/22?? 91.5?? MCH?? 12/18/22 13:32?? 31.6 ??High?? 10/23/22?? 31.5 ??High?? MCHC?? 12/18/22 13:32?? 34.1?? 10/23/22?? 34.5?? RDW-CV?? 12/18/22 13:32?? 12.6?? 10/23/22?? 11.9?? Platelets?? 12/18/22 13:32?? 260?? 10/23/22?? 237?? MPV?? 12/18/22 13:32?? 11.3 ??High?? 10/23/22?? 10.9 ??High?? Neutro Auto?? 12/18/22 13:32?? 51.9?? 10/23/22?? 49.0?? Lymph Auto?? 12/18/22 13:32?? 35.2?? 10/23/22?? 34.8?? [place] Auto?? 12/18/22 13:32?? 9.6 ??High?? 10/23/22?? 11.7 ??High?? Eos, Auto?? 12/18/22 13:32?? 2.40?? 10/23/22?? 3.70 ??High?? Basophil Auto?? 12/18/22 13:32?? 0.6?? 10/23/22?? 0.5?? Imm Gran Auto?? 12/18/22 13:32?? 0.3?? 10/23/22?? 0.3?? Neutro Absolute?? 12/18/22 13:32?? 5.0?? 10/23/22?? 4.3?? Lymph Absolute?? 12/18/22 13:32?? 3.4?? 10/23/22?? 3.0?? [place] Absolute?? 12/18/22 13:32?? 0.9 ??High?? 10/23/22?? 1.0 ??High?? Eos Absolute?? 12/18/22 13:32?? 0.2?? 10/23/22?? 0.3 ??High?? Baso Absolute?? 12/18/22 13:32?? 0.1?? 10/23/22?? 0.0?? Imm Gran Absolute?? 12/18/22 13:32?? 0.03?? 10/23/22?? 0.03?? Slide Review?? 12/18/22 13:32?? Not Indicated?? 10/23/22?? Not Indicated? Miscellaneous Hematology?? LATEST RESULTS?? ESR, Westergren?? 12/18/22 13:32?? 31 ??High? Coagulation?? LATEST RESULTS?? HISTORICAL RESULTS?? D Dimer, (Quant.)?? 12/18/22 13:32?? 312?? 10/23/22?? 300? Routine Chemistry?? LATEST RESULTS?? HISTORICAL RESULTS?? Sodium Level?? 12/18/22 13:32?? 137?? 10/23/22?? 134?? Potassium Level?? 12/18/22 13:32?? 3.7?? 10/23/22?? 4.0?? Chloride Level?? 12/18/22 13:32?? 97 ??Low?? 10/23/22?? 97 ??Low?? CO2?? 12/18/22 13:32?? 29?? 10/23/22?? 30?? Alk Phos?? 12/18/22 13:32?? 90?? 10/23/22?? 92?? AST?? 12/18/22 13:32?? 30?? 10/23/22?? 73 ??High?? ALT?? 12/18/22 13:32?? 46?? 10/23/22?? 92 ??High?? BUN?? 12/18/22 13:32?? 23?? 10/23/22?? 20?? Glucose Level?? 12/18/22 13:32?? 97?? 10/23/22?? 85?? Creatinine Level?? 12/18/22 13:32?? 1.38 ??High?? 10/23/22?? 1.23?? BUN/Creat Ratio?? 12/18/22 13:32?? 16.7?? 10/23/22?? 16.3?? eGFR CKD-EPI?? 12/18/22 13:32?? 71?? 10/23/22?? 82?? Calcium Level?? 12/18/22 13:32?? 8.6 ??Low?? 10/23/22?? 9.1?? Protein Total?? 12/18/22 13:32?? 7.5?? 10/23/22?? 7.0?? Albumin Level?? 12/18/22 13:32?? 3.6?? 10/23/22?? 3.5?? Globulin?? 12/18/22 13:32?? 3.9?? 10/23/22?? 3.5?? A/G Ratio?? 12/18/22 13:32?? 0.9?? 10/23/22?? 1.0?? Bilirubin Total?? 12/18/22 13:32?? 0.3?? 10/23/22?? 0.3?? Anion Gap?? 12/18/22 13:32?? 11.0?? 10/23/22?? 7.0?? Lipase Level?? 12/18/22 13:32?? 25?? 09/08/22?? 25?? Osmolality?? 12/18/22 13:32?? 277?? 10/23/22?? 270 ??Low? Cardiac Isoenzymes?? LATEST RESULTS?? HISTORICAL RESULTS?? Troponin-I?? 12/18/22 13:32?? 0.01?? 09/08/22?? <0.01? Electronically Signed on 12/18/22 06:05 PM Berto Davis MD Emergency department Discharge instructions * Berto Davis MD: PERFORM Event Display: ED Discharge Information Authored Date: [id number] DESIRE SANCHEZ :1995 Age:27 years Sex:Male Visit Date:12/18/2022 Primary Care Physician: JARRELL HOUSER DO Discharge Instructions We would like to thank you for allowing us to assist you with your healthcare needs. The following includes patient education materials and information regarding your injury/illness. Diagnosis from Today's Visit Chest wall pain Discharge Vitals Temperature??(Temporal Artery) 96.8 ??F (36.0 ??C) Heart Rate??(Monitored) 85 Respiratory Rate?? 16 Blood Pressure?? 109/55?? Height?? 70.08 in (178.000 cm) Weight??(Estimated) 231.52 lb (105.00 kg) Allergies amoxicillin??(Vomiting symptom) codeine What to Do Next Instructions from Your Care Team Toradol as prescribed for pain. ??Rest. ??Follow-up with regular doctor or return for worsening symptoms You were treated today on an emergency [...] How Much When Instructions Next Dose New ketorolac (ketorolac 10 mg oral tablet) 1 tab Oral (given by mouth) Every 6 hours as needed for as needed for pain not to exceed 40 mg/ day and 5 days duration for all dose forms ?? Pickup at [facility] Unchanged acetaminophen (acetaminophen 325 mg oral [...] pain Pharmacy Information [facility]: [address] [place], [place] [id number] [phone] Education Materials Chest Wall Pain Chest wall [...] safe for you. General instructions ? Take kbnn-svq-hngsxle and prescription medicines only as told by [...] Document Reviewed: 08/17/2021 [employer] Patient Education ?? 2021 [employer] Tests Performed Radiology XR Chest 1 View 12/18/2022 13:46 EDT Medications and Immunizations Administered Given Toradol, 30 mg, IV Lab Test Name Test Result Date/Time WBC 9.7 K/mcL 12/18/2022 13:32 EDT RBC 3.80 Million/mcL 12/18/2022 13:32 EDT Hgb 12.0 g/dL 12/18/2022 13:32 EDT Hct 35.2 % 12/18/2022 13:32 EDT MCV 92.6 fL 12/18/2022 13:32 EDT MCH 31.6 pg 12/18/2022 13:32 EDT MCHC 34.1 g/dL 12/18/2022 13:32 EDT RDW-CV 12.6 % 12/18/2022 13:32 EDT Platelets 260 K/mcL 12/18/2022 13:32 EDT MPV 11.3 fL 12/18/2022 13:32 EDT Neutro Auto 51.9 % 12/18/2022 13:32 EDT Lymph Auto 35.2 % 12/18/2022 13:32 EDT [place] Auto 9.6 % 12/18/2022 13:32 EDT Eos, Auto 2.40 % 12/18/2022 13:32 EDT Basophil Auto 0.6 % 12/18/2022 13:32 EDT Imm Gran Auto 0.3 % 12/18/2022 13:32 EDT Neutro Absolute 5.0 K/mcL 12/18/2022 13:32 EDT Lymph Absolute 3.4 K/mcL 12/18/2022 13:32 EDT [place] Absolute 0.9 K/mcL 12/18/2022 13:32 EDT Eos Absolute 0.2 K/mcL 12/18/2022 13:32 EDT Baso Absolute 0.1 K/mcL 12/18/2022 13:32 EDT Imm Gran Absolute 0.03 12/18/2022 13:32 EDT Slide Review Not Indicated 12/18/2022 13:32 EDT ESR, Westergren 31 mm/hr 12/18/2022 13:32 EDT D Dimer, (Quant.) 312 ng/mL 12/18/2022 13:32 EDT Sodium Level 137 mmol/L 12/18/2022 13:32 EDT Potassium Level 3.7 mmol/L 12/18/2022 13:32 EDT Chloride Level 97 mmol/L 12/18/2022 13:32 EDT CO2 29 mmol/L 12/18/2022 13:32 EDT Alk Phos 90 IntlUnit/L 12/18/2022 13:32 EDT AST 30 IntlUnit/L 12/18/2022 13:32 EDT ALT 46 IntlUnit/L 12/18/2022 13:32 EDT BUN 23 mg/dL 12/18/2022 13:32 EDT Glucose Level 97 mg/dL 12/18/2022 13:32 EDT Creatinine Level 1.38 mg/dL 12/18/2022 13:32 EDT BUN/Creat Ratio 16.7 12/18/2022 13:32 EDT eGFR CKD-EPI 71 mL/min/1.73 m2 12/18/2022 13:32 EDT Calcium Level 8.6 mg/dL 12/18/2022 13:32 EDT Protein Total 7.5 g/dL 12/18/2022 13:32 EDT Albumin Level 3.6 g/dL 12/18/2022 13:32 EDT Globulin 3.9 12/18/2022 13:32 EDT A/G Ratio 0.9 12/18/2022 13:32 EDT Bilirubin Total 0.3 mg/dL 12/18/2022 13:32 EDT Anion Gap 11.0 12/18/2022 13:32 EDT Lipase Level 25 unit/L 12/18/2022 13:32 EDT Osmolality 277 mOsm/kg 12/18/2022 13:32 EDT Troponin-I 0.01 ng/mL 12/18/2022 13:32 EDT Patient/Sales Support Assistant Signature Patient Name:DESIRE SANCHEZ I have received this information and my questions have been answered. Patient/Sales Support Assistant Name: Patient/Sales Support Assistant Signature: Relationship to Patient: Witness Name/Signature: Date: Electronically Signed on: 12/18/2022 15:18 EDTSigned by:EDGAR Patient Care team information Care Team Personnel Name: JARRELL HOUSER DO Position: No Access Member Role: Primary Care Physician Address: Address: [id number] [place] [address] Name: Berto Davis MD Position: Physician Member Role: Admitting Physician Address: Address: [address] [place] [id number] Name: Christina Cruz I Position: Nurse Member Role: ED Nurse Care Team Related Persons Name: ARY SANCHEZ Name: MILLER SANCHEZ
--- OUTSIDE RECORDS SUMMARY | 2023-05-14 12:36 | XMS_ITS | Continuity of Care Document ---
Author Name Unknown Organization [facility] Address [address] [place] [id number] Care Team Providers Care Hourly Shift Manager Name Role Phone JARRELL HOUSER DO Primary Care Physician Encounter [facility] NBR [phone] Date(s): 02/01/23 - 02/01/23 [facility] [address] [place] [address]- [place] Encounter Diagnosis Vasovagal syncope(Discharge Diagnosis) - 02/01/23 Chronic renal insufficiency(Discharge Diagnosis) - 02/01/23 Discharge Disposition: Home or Self Care Attending Physician: Mp Knott MD Admitting Physician: Mp Knott MD Allergies, Adverse Reactions, Alerts Substance Reaction Severity Status codeine Unknown Active amoxicillin Vomiting symptom Moderate Active penicillin Moderate Active Functional Status 02/01/23 Other exposure to Infectious Disease Non e [...] Start Date: 09/22/22 Status: Ordered Mental Status 02/01/23 Eye Opening Response Ashley Spontaneous ly Best Verbal Response Ashley Oriented Best Motor Response Ashley Obeys comman ds Ashley Coma Score 15 Problem List Condition Confirmation [...] Active 1elevated Results Laboratory List Name Date Chlamydia trachomatis and Neisseria gono rrhoeae (GeneXpert) 02/01/23 Urinalysis with Micro if Indicated and C ulture if Indicated 02/01/23 CBC w/ Diff 02/01/23 Comprehensive Metabolic Panel (CMP) 02/01 Glucose POCT 02/01/23 Automated Diff 02/01/23 Most recent to oldest [Reference Range]: 1 WBC [4.8-10.8 K/mcL] 7.1 K/mcL (02/01/23 1:30 PM) RBC [4.20-6.10 Million/mcL] 3.75 Million /mcL *LOW* (02/01/23 1:30 PM) Neutro Auto [42.2-75.2 %] 58.9 % (02/01/23 1:30 PM) Lymph Auto [20.5-51.1 %] 26.6 % (02/01/23 1:30 PM) Isabela Auto [1.7-9.3 %] 11.5 % *HI* (02/01/23 1:30 PM) Basophil Auto [0.0-0.8 %] 0.6 % (02/01/23 1:30 PM) BUN [8-26 mg/dL] 17 mg/dL (02/01/23 1:30 PM) Glucose POC 112 *NA* (02/01/23 1:28 PM) UA Color [Yellow] Yellow (02/01/23 2:40 PM) Glucose Level [74-106 mg/dL] 114 mg/dL *HI* (02/01/23 1:30 PM) Potassium Level [3.5-5.1 mmol/L] 3.8 mmo l/L (02/01/23 1:30 PM) Baso Absolute [0.0-0.2 K/mcL] 0.0 K/mcL (02/01/23 1:30 PM) MCV [80.0-94.0 fL] 91.7 fL (02/01/23 1:30 PM) UA Urobilinogen [0.2] 0.2 (02/01/23 2:40 PM) UA Bili [Negative] Negative (02/01/23 2:40 PM) UA Ketones [Negative] Negative (02/01/23 2:40 PM) AST [15-41 IntlUnit/L] 37 IntlUnit/L (02/01/23 1:30 PM) ALT [17-63 IntlUnit/L] 29 IntlUnit/L (02/01/23 1:30 PM) MCHC [32.0-36.0 g/dL] 34.9 g/dL (02/01/23 1:30 PM) Osmolality [275-295 mOsm/kg] 274 mOsm/kg *LOW* (02/01/23 1:30 PM) Sodium Level [134-143 mmol/L] 136 mmol/L (02/01/23 1:30 PM) UA Leuk Est [Negative] Negative (02/01/23 2:40 PM) Lymph Absolute [1.2-3.4 K/mcL] 1.9 K/mcL (02/01/23 1:30 PM) UA Nitrite [Negative] Negative (02/01/23 2:40 PM) UA Glucose [Negative] Negative (02/01/23 2:40 PM) Hct [42.0-52.0 %] 34.4 % *LOW* (02/01/23 1:30 PM) Calcium Level [8.9-10.3 mg/dL] 9.1 mg/dL (02/01/23 1:30 PM) Isabela Absolute [0.1-0.6 K/mcL] 0.8 K/mcL *HI* (02/01/23 1:30 PM) Albumin Level [3.5-5.0 g/dL] 3.5 g/dL (02/01/23 1:30 PM) Protein Total [6.5-8.1 g/dL] 7.3 g/dL (02/01/23 1:30 PM) UA Protein [Negative] Negative (02/01/23 2:40 PM) MCH [27.0-31.0 pg] 32.0 pg *HI* (02/01/23 1:30 PM) Neutro Absolute [1.4-6.5 K/mcL] 4.2 K/mc L (02/01/23 1:30 PM) Bilirubin Total [0.2-1.2 mg/dL] 0.7 mg/d L (02/01/23 1:30 PM) Hgb [14.0-18.0 g/dL] 12.0 g/dL *LOW* (02/01/23 1:30 PM) Alk Phos [38-130 IntlUnit/L] 101 IntlUni t/L (02/01/23 1:30 PM) UA Blood [Negative] Negative (02/01/23 2:40 PM) MPV [7.4-10.4 fL] 11.5 fL *HI* (02/01/23 1:30 PM) UA Spec Grav [1.001-1.030] 1.015 (02/01/23 2:40 PM) Platelets [130-400 K/mcL] 248 K/mcL (02/01/23 1:30 PM) CO2 [22-32 mmol/L] 30 mmol/L (02/01/23 1:30 PM) Eos Absolute [0.0-0.2 K/mcL] 0.2 K/mcL (02/01/23 1:30 PM) UA pH [5.00-9.00] 7.50 (02/01/23 2:40 PM) UA Appear [Clear] Slightly Cloudy *ABN* (02/01/23 2:40 PM) Chloride Level [98-111 mmol/L] 99 mmol/L (02/01/23 1:30 PM) RDW-CV [11.5-14.5 %] 12.4 % (02/01/23 1:30 PM) A/G Ratio [1.0-2.5 g/dL] 0.9 g/dL *LOW* (02/01/23 1:30 PM) BUN/Creat Ratio [8.0-20.0] 11.3 (02/01/23 1:30 PM) Globulin [2.3-3.5 g/dL] 3.8 g/dL *HI* (02/01/23 1:30 PM) Imm Gran Absolute 0.02 *NA* (02/01/23 1:30 PM) Imm Gran Auto [0.0-0.5 %] 0.3 % (02/01/23 1:30 PM) Chlamydia trachomatis DNA -GeneXpert [No t Detected] Not Detected (02/01/23 2:40 PM) Neisseria gonorrhoeae DNA -GeneXpert [No t Detected] Not Detected (02/01/23 2:40 PM) Creatinine Level [0.61-1.24 mg/dL] 1.51 mg/dL *HI* (02/01/23 1:30 PM) Anion Gap [3.0-12.0] 7.0 (02/01/23 1:30 PM) Eos, Auto [0.00-3.00 %] 2.10 % (02/01/23 1:30 PM) eGFR CKD-EPI [>=60 mL/min/1.73 m2] 64 mL /min/1.73 m2 (02/01/23 1:30 PM) Vital Signs Most recent to oldest [Reference Range]: 1 Temperature Oral [35.8-37.3 Deg C] 36.6 Deg C (02/01/23 1:12 PM) Peripheral Pulse Rate [60-100 bpm] 87 bp m (02/01/23 1:12 PM) Respiratory Rate [12-24 br/min] 16 br/mi n (02/01/23 1:12 PM) Blood Pressure [90-140/60-90 mmHg] 129/8 0mmHg (02/01/23 1:12 PM) Weight Dosing 104.33 kg (02/01/23 1:33 PM) Weight Estimated 104.33 kg (02/01/23 1:12 PM) Height/Length Dosing 177.000 cm (02/01/23 1:33 PM) Height/Length Estimated 177.000 cm (02/01/23 1:12 PM) Social History Social History Type Response Tobacco Never tobacco user T obacco Use:. Sex Physician Emergency department Note * Mp Knott MD: PERFORM Event Display: ED Note Physician Authored Date: [id number] DESIRE SANCHEZ :1995 Age:27 years Sex:Male Visit Date:02/01/2023 Primary Care Physician: JARRELL HOUSER DO Basic Information Time Seen: Mp Knott MD / 02/01/2023 13:18 Chief Complaint patient presents with report that he passed out at work around 10am. denies hitting his head. states that he felt it coming on. reports dental infection 1 week ago and didnt take his antibiotics. History Of Present Illness: 27-year-old??became dizzy lightheaded sweaty at work??had brief loss of consciousness??resolved with??laying flat and then??recurred with??attempted sitting up.?? Chronically poor dentition, on antibiotics for this (clindamycin), pending??extensive extractions (entire mouth has rotten teeth), history of??substance abuse in the past on methadone.?? Denies antecedent vomiting, diarrhea, fevers rashes, bleeding.?? Did not eat much??today but he did have some water.?? Patient denies heat exposure??or any??preceding??painful??stimuli, was not??using the bathroom.?? Did not hit the ground; his coworker helped him??go down to the ground when he became lightheaded and??expressed that he was not feeling well.?? Patient has felt??more thirsty recently with increasing urination, some discomfort withurination; there is a??family history??of diabetes in both??his??mother and father.?? 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 Patient states he may have had a fever last night. Review of Systems: Review of Systems: Constitutional: [No fevers. ??[place] sweaty with the event] Eye: [No acute visual complaints] ENT: [No ear pain, nasal congestion, sore throat] Respiratory: [No shortness of breath, -cough] Cardiovascular: [No Chest pain or palpitations] Gastrointestinal: [No nausea, vomiting, or diarrhea. No bleeding or melena] Genitourinary: [Denies hematuria, has had some dysuria] Musculoskeletal: [No acute back pain, neck pain, joint pain, muscle pain, decreased range of motion] Integumentary: [No rash, pruritus, abrasions] Neurologic: [No focal sensory or motor complaints. +??Brief syncope] ? Physical Exam: General: [Alert and oriented, obese man, no acute distress].?Afebrile,??not tachycardic, not hypoxic Eye: [PERRL, EOMI, normal conjunctiva]. HENT: [Normocephalic, normal hearing, moist oral mucosa, no scleral icterus, no nasal discharge].?Diffuse carious and black teeth??down to gumline Neck: [Ranging neck, normal inspection].?? Lungs: [Clear to auscultation, non-labored respiration, no tachypnea].?? Heart: [Normal rate, regular rhythm, no murmur, gallop or edema]. Abdomen: [Soft, non-tender, non-distended, normal bowel sounds].?? Musculoskeletal: [Normal range of motion and strength, no tenderness or swelling]. Skin: [Skin is warm, dry and pink, no rashes or lesions]. Neurologic: [Awake, alert and oriented X4, normal tone, moving all extremities with good strength].[Ambulation intact]. Psychiatric: [Cooperative, appropriate mood and affect]. Physical Exam Vitals & Measurements T:??36.6?C ??(Oral)?? HR:??87??(Peripheral)?? RR:??16?? BP:??129/80?? SpO2:??96%?? HT:??177.000??cm?? WT:??104.33??kg??(Estimated)?? O2 Therapy:??Room air?? Procedure No Qualifying Data Assessment/Plan 1.??Vasovagal syncope??R55 2.??Chronic renal insufficiency??N18.9 Orders: NS drip 1,000 mL, Total Volume (mL): 1,000, 1,000 mL, Soln-IV, IV Bolus, 999 mL/hr, Order Duration:1 doses, Start Date: 02/01/23 14:15:00 EDT, Stop Date: 02/01/23 15:14:00 EDT, 104.33 kg, Populate Charting Weight From Order, 2.26, m2 Chlamydia trachomatis and Neisseria gonorrhoeae (GeneXpert), Urine, Stat Collect, 02/01/23 14:42:00EDT, Once, Nurse collect, Print Label Discharge Patient, 02/01/23 15:07:00 EDT Transient syncope??in young man, frequent ED visitor, with history of MEN,??no cardiac pathology,??past substance abuse but not using drugs now he states;??much improved since arrival in ED. ?Neurologically intact, nontoxic- appearing.?? Unclear trigger for event; did not have a lot of p.o. intake although he did have some water this morning. ??Will feed and have him taken some??liquids, check labs, UA (patient complains of dysuria)??and EKG.?EKG is sinus rhythm with normal intervals??noST or T wave changes.?? Labs pending. ??Disposition pending results. ?? Addendum:??Mild anemia,??mild renal insufficiency (present on prior labs). ??UA clean.?? EKG sinus rhythm??no ST or T wave changes, no interval abnormalities.?? After being observed in emergency for approximately 90 minutes patient decided he feels fine and wants discharge. ??He did eat and drink here with no problems.?? I think he is at low risk for having a serious cause for??syncope and??is safe for discharge. Medication Reconciliation Unchanged acetaminophen (acetaminophen 325 mg [...] and Differential?? LATEST RESULTS?? HISTORICAL RESULTS?? WBC?? 02/01/23 13:30?? 7.1?? 01/27/23?? 6.0?? RBC?? 02/01/23 13:30?? 3.75 ??Low?? 01/27/23?? 3.71 ??Low?? Hgb?? 02/01/23 13:30?? 12.0 ??Low?? 01/27/23?? 11.7 ??Low?? Hct?? 02/01/23 13:30?? 34.4 ??Low?? 01/27/23?? 34.4 ??Low?? MCV?? 02/01/23 13:30?? 91.7?? 01/27/23?? 92.7?? MCH?? 02/01/23 13:30?? 32.0 ??High?? 01/27/23?? 31.5 ??High?? MCHC?? 02/01/23 13:30?? 34.9?? 01/27/23?? 34.0?? RDW-CV?? 02/01/23 13:30?? 12.4?? 01/27/23?? 12.7?? Platelets?? 02/01/23 13:30?? 248?? 01/27/23?? 242?? MPV?? 02/01/23 13:30?? 11.5 ??High?? 01/27/23?? 11.0 ??High?? Neutro Auto?? 02/01/23 13:30?? 58.9?? 01/27/23?? 52.3?? Lymph Auto?? 02/01/23 13:30?? 26.6?? 01/27/23?? 30.1?? Isabela Auto?? 02/01/23 13:30?? 11.5 ??High?? 01/27/23?? 14.0 ??High?? Eos, Auto?? 02/01/23 13:30?? 2.10?? 01/27/23?? 2.80?? Basophil Auto?? 02/01/23 13:30?? 0.6?? 01/27/23?? 0.5?? Imm Gran Auto?? 02/01/23 13:30?? 0.3?? 01/27/23?? 0.3?? Neutro Absolute?? 02/01/23 13:30?? 4.2?? 01/27/23?? 3.2?? Lymph Absolute?? 02/01/23 13:30?? 1.9?? 01/27/23?? 1.8?? Isabela Absolute?? 02/01/23 13:30?? 0.8 ??High?? 01/27/23?? 0.8 ??High?? Eos Absolute?? 02/01/23 13:30?? 0.2?? 01/27/23?? 0.2?? Baso Absolute?? 02/01/23 13:30?? 0.0?? 01/27/23?? 0.0?? Imm Gran Absolute?? 02/01/23 13:30?? 0.02?? 01/27/23?? 0.02? Routine Chemistry?? LATEST RESULTS?? HISTORICAL RESULTS?? Sodium Level?? 02/01/23 13:30?? 136?? 01/27/23?? 138?? Potassium Level?? 02/01/23 13:30?? 3.8?? 01/27/23?? 3.9?? Chloride Level?? 02/01/23 13:30?? 99?? 01/27/23?? 97 ??Low?? CO2?? 02/01/23 13:30?? 30?? 01/27/23?? 33 ??High?? Alk Phos?? 02/01/23 13:30?? 101?? 01/27/23?? 102?? AST?? 02/01/23 13:30?? 37?? 01/27/23?? 28?? ALT?? 02/01/23 13:30?? 29?? 01/27/23?? 31?? BUN?? 02/01/23 13:30?? 17?? 01/27/23?? 20?? Glucose Level?? 02/01/23 13:30?? 114 ??High?? 01/27/23?? 81?? Creatinine Level?? 02/01/23 13:30?? 1.51 ??High?? 01/27/23?? 1.42 ??High?? BUN/Creat Ratio?? 02/01/23 13:30?? 11.3?? 01/27/23?? 14.1?? eGFR CKD-EPI?? 02/01/23 13:30?? 64?? 01/27/23?? 69?? Calcium Level?? 02/01/23 13:30?? 9.1?? 01/27/23?? 9.5?? Protein Total?? 02/01/23 13:30?? 7.3?? 01/27/23?? 7.2?? Albumin Level?? 02/01/23 13:30?? 3.5?? 01/27/23?? 3.5?? Globulin?? 02/01/23 13:30?? 3.8 ??High?? 01/27/23?? 3.7?? A/G Ratio?? 02/01/23 13:30?? 0.9 ??Low?? 01/27/23?? 0.9?? Bilirubin Total?? 02/01/23 13:30?? 0.7?? 01/27/23?? 0.5?? Anion Gap?? 02/01/23 13:30?? 7.0?? 01/27/23?? 8.0?? Osmolality?? 02/01/23 13:30?? 274 ??Low?? 01/27/23?? 277?? Glucose POC?? 02/01/23 13:28?? 112? UA Macroscopic?? LATEST RESULTS?? HISTORICAL RESULTS?? UA Color?? 02/01/23 14:40?? Yellow?? 09/08/22?? Yellow?? UA Appear?? 02/01/23 14:40?? Slightly Cloudy Abnormal?? 09/08/22?? Clear?? UA Glucose?? 02/01/23 14:40?? Negative?? 09/08/22?? Negative?? UA Bili?? 02/01/23 14:40?? Negative?? 09/08/22?? Negative?? UA Ketones?? 02/01/23 14:40?? Negative?? 09/08/22?? Negative?? UA Spec Grav?? 02/01/23 14:40?? 1.015?? 09/08/22?? 1.010?? UA Blood?? 02/01/23 14:40?? Negative?? 09/08/22?? Negative?? UA pH?? 02/01/23 14:40?? 7.50?? 09/08/22?? 5.00?? UA Protein?? 02/01/23 14:40?? Negative?? 09/08/22?? Negative?? UA Urobilinogen?? 02/01/23 14:40?? 0.2?? 09/08/22?? 0.2?? UA Nitrite?? 02/01/23 14:40?? Negative?? 09/08/22?? Negative?? UA Leuk Est?? 02/01/23 14:40?? Negative?? 09/08/22?? Negative? Electronically Signed on 02/01/23 03:54 PM Mp Knott MD Emergency department Discharge instructions * Mp Knott MD: PERFORM Event Display: ED Discharge Information Authored Date: [id number] DESIRE SANCHEZ :1995 Age:27 years Sex:Male Visit Date:02/01/2023 Primary Care Physician: JARRELL HOUSER DO Discharge Instructions We would like to thank you for allowing us to assist you with your healthcare needs. The following includes patient education materials and information regarding your injury/illness. Diagnosis from Today's Visit Vasovagal syncope Chronic renal insufficiency Discharge Vitals Temperature??(Oral) 97.9 ??F (36.6 ??C) Heart Rate??(Peripheral) 87 Respiratory Rate?? 16 Blood Pressure?? 129/80?? Height?? 69.69 in (177.000 cm) Weight??(Estimated) 230.05 lb (104.33 kg) Allergies amoxicillin??(Vomiting symptom) penicillin codeine What to Do Next Instructions from Your Care Team We did not identify a serious cause for your passing out today.?? Drink plenty fluids,??eat regularly and get plenty of rest.?? If you have persistent dizziness or lightheadedness follow-up with yourdoctor.?? Return emergency??if you have repeat episodes of passing out,??high fevers,??chest pain,??shortness of breath or anything else acutely worsens.?? Take your antibiotics for your dental infection as directed, continue regular medications as directed. You were treated today on an emergency [...] as needed for as needed for pain Tests Performed Lab Test Name Test Result Date/Time WBC 7.1 K/mcL 02/01/2023 13:30 EDT RBC 3.75 Million/mcL 02/01/2023 13:30 EDT Hgb 12.0 g/dL 02/01/2023 13:30 EDT Hct 34.4 % 02/01/2023 13:30 EDT MCV 91.7 fL 02/01/2023 13:30 EDT MCH 32.0 pg 02/01/2023 13:30 EDT MCHC 34.9 g/dL 02/01/2023 13:30 EDT RDW-CV 12.4 % 02/01/2023 13:30 EDT Platelets 248 K/mcL 02/01/2023 13:30 EDT MPV 11.5 fL 02/01/2023 13:30 EDT Neutro Auto 58.9 % 02/01/2023 13:30 EDT Lymph Auto 26.6 % 02/01/2023 13:30 EDT Isabela Auto 11.5 % 02/01/2023 13:30 EDT Eos, Auto 2.10 % 02/01/2023 13:30 EDT Basophil Auto 0.6 % 02/01/2023 13:30 EDT Imm Gran Auto 0.3 % 02/01/2023 13:30 EDT Neutro Absolute 4.2 K/mcL 02/01/2023 13:30 EDT Lymph Absolute 1.9 K/mcL 02/01/2023 13:30 EDT Isabela Absolute 0.8 K/mcL 02/01/2023 13:30 EDT Eos Absolute 0.2 K/mcL 02/01/2023 13:30 EDT Baso Absolute 0.0 K/mcL 02/01/2023 13:30 EDT Imm Gran Absolute 0.02 02/01/2023 13:30 EDT Sodium Level 136 mmol/L 02/01/2023 13:30 EDT Potassium Level 3.8 mmol/L 02/01/2023 13:30 EDT Chloride Level 99 mmol/L 02/01/2023 13:30 EDT CO2 30 mmol/L 02/01/2023 13:30 EDT Alk Phos 101 IntlUnit/L 02/01/2023 13:30 EDT AST 37 IntlUnit/L 02/01/2023 13:30 EDT ALT 29 IntlUnit/L 02/01/2023 13:30 EDT BUN 17 mg/dL 02/01/2023 13:30 EDT Glucose Level 114 mg/dL 02/01/2023 13:30 EDT Creatinine Level 1.51 mg/dL 02/01/2023 13:30 EDT BUN/Creat Ratio 11.3 02/01/2023 13:30 EDT eGFR CKD-EPI 64 mL/min/1.73 m2 02/01/2023 13:30 EDT Calcium Level 9.1 mg/dL 02/01/2023 13:30 EDT Protein Total 7.3 g/dL 02/01/2023 13:30 EDT Albumin Level 3.5 g/dL 02/01/2023 13:30 EDT Globulin 3.8 g/dL 02/01/2023 13:30 EDT A/G Ratio 0.9 g/dL 02/01/2023 13:30 EDT Bilirubin Total 0.7 mg/dL 02/01/2023 13:30 EDT Anion Gap 7.0 02/01/2023 13:30 EDT Osmolality 274 mOsm/kg 02/01/2023 13:30 EDT Glucose POC 112 02/01/2023 13:28 EDT UA Color YELLOW. 02/01/2023 14:40 EDT UA Appear SL CLOUDY 02/01/2023 14:40 EDT UA Glucose NEGATIVE 02/01/2023 14:40 EDT UA Bili NEGATIVE 02/01/2023 14:40 EDT UA Ketones NEGATIVE 02/01/2023 14:40 EDT UA Spec Grav 1.015 02/01/2023 14:40 EDT UA Blood NEGATIVE 02/01/2023 14:40 EDT UA pH 7.50 02/01/2023 14:40 EDT UA Protein NEGATIVE 02/01/2023 14:40 EDT UA Urobilinogen 0.2 02/01/2023 14:40 EDT UA Nitrite NEGATIVE 02/01/2023 14:40 EDT UA Leuk Est NEGATIVE 02/01/2023 14:40 EDT Patient/Customer Account Representative Signature Patient Name:DESIRE SANCHEZ I have received this information and my questions have been answered. Patient/Customer Account Representative Name: Patient/Customer Account Representative Signature: Relationship to Patient: Witness Name/Signature: Date: Electronically Signed on: 02/01/2023 15:13 EDTSigned by:Nava Patient Care team information Care Team Personnel Name: JARRELL HOUSER DO Position: No Access Member Role: Primary Care Physician Address: Address: [address] [id number] Name: Mp Knott MD Position: Physician Member Role: ED Physician Address: Address: [facility] [address] [place] [id number] Name: Yee Bullard RN Position: Nurse Member Role: ED Nurse Care Team Related Persons Name: ARY SANCHEZ Address: Home Name: MILLER SANCHEZ Address: Home
--- OUTSIDE RECORDS SUMMARY | 2023-05-14 12:36 | XMS_ITS | Continuity of Care Document ---
Author Name Unknown Organization [facility] Address [address] [place] [phone] Care Team Providers Care Landing Support Specialist Name Role Phone JARRELL HOUSER Primary Care Physician Encounter [facility] FIN NBR [phone] Date(s): 06/22/22 - 06/22/[address] [phone] Encounter Diagnosis CAP (community acquired pneumonia)(Discharge Diagnosis) - 06/22/22 Discharge Disposition: Home or Self Care Attending Physician: Bryan Sheldon DO Admitting Physician: Bryan Sheldon DO Allergies, Adverse Reactions, Alerts Substance Reaction Severity Status codeine Unknown Active amoxicillin Vomiting symptom Moderate Active Functional Status 06/22/22 Other exposure to Infectious Disease COV ID-19 Symptoms Present Medications calcitriol 0.25 mcg oral capsule 0.5, Oral, BID, TAKE ONE CAPSULE BY MOUTH EVERY DAY Start Date: 06/22/22 Status: Ordered doxycycline hyclate 100 mg oral capsule 100 mg = 1 cap, Oral, BID, # 20 cap, 0 Refill(s), Pharmacy: [id number], 178, cm, 06/22/22 16:30:00 EST, Height/Length [...] Status: Ordered Results Laboratory List Name Date Urinalysis with Micro if Indicated and C ulture if Indicated 06/22/22 SARS-CoV-2 (COVID-19)/Flu/RSV (GeneXpert ) 06/22/22 CBC w/ Diff 06/22/22 Comprehensive Metabolic Panel (CMP) Troponin-I 06/22/22 Automated Diff 06/22/22 SARS-CoV-2 (Covid-19) AG (Leonora) POCT 06/22/22 Most recent to oldest [Reference Range]: 1 2 WBC [4.8-10.8 K/mcL] 9.3 K/mcL (06/22/22 4:25 PM) RBC [4.20-6.10 Million/mcL] 3.62 Million /mcL *LOW* (06/22/22 4:25 PM) Neutro Auto [42.2-75.2 %] 82.3 % *HI* (06/22/22 4:25 PM) Lymph Auto [20.5-51.1 %] 11.0 % *LOW* (06/22/22 4:25 PM) Powell Auto [1.7-9.3 %] 5.4 % (06/22/22 4:25 PM) Basophil Auto [0.0-0.8 %] 0.4 % (06/22/22 4:25 PM) BUN [8-26 mg/dL] 17 mg/dL (06/22/22 4:25 PM) UA Color LIGHT YELL *NA* (06/22/22 4:40 PM) Glucose Level [74-106 mg/dL] 134 mg/dL *HI* (06/22/22 4:25 PM) Potassium Level [3.5-5.1 mmol/L] 3.8 mmo l/L (06/22/22 4:25 PM) Baso Absolute [0.0-0.2 K/mcL] 0.0 K/mcL (06/22/22 4:25 PM) MCV [80.0-99.0 fL] 92.8 fL (06/22/22 4:25 PM) UA Urobilinogen [0.2] 0.2 (06/22/22 4:40 PM) UA Bili [Negative] Negative (06/22/22 4:40 PM) UA Ketones [Negative] Negative (06/22/22 4:40 PM) AST [15-41 IntlUnit/L] 24 IntlUnit/L (06/22/22 4:25 PM) ALT [17-63 IntlUnit/L] 18 IntlUnit/L (06/22/22 4:25 PM) MCHC [32.0-36.0 g/dL] 33.6 g/dL (06/22/22 4:25 PM) Osmolality [275-295 mOsm/kg] 275 mOsm/kg (06/22/22 4:25 PM) Troponin-I [<=0.05 ng/mL] <0.01 ng/mL (06/22/22 4:25 PM) Sodium Level [134-143 mmol/L] 136 mmol/L (06/22/22 4:25 PM) UA Leuk Est [Negative] Negative (06/22/22 4:40 PM) Lymph Absolute [1.2-3.4 K/mcL] 1.0 K/mcL *LOW* (06/22/22 4:25 PM) UA Nitrite [Negative] Negative (06/22/22 4:40 PM) UA Glucose [Negative] Negative (06/22/22 4:40 PM) Hct [37.0-52.0 %] 33.6 % *LOW* (06/22/22 4:25 PM) Calcium Level [8.9-10.3 mg/dL] 9.4 mg/dL (06/22/22 4:25 PM) Powell Absolute [0.1-0.6 K/mcL] 0.5 K/mcL (06/22/22 4:25 PM) Albumin Level [3.5-5.0 g/dL] 3.8 g/dL (06/22/22 4:25 PM) Protein Total [6.5-8.1 g/dL] 7.7 g/dL (06/22/22 4:25 PM) UA Protein [Negative] Negative (06/22/22 4:40 PM) MCH [27.0-31.0 pg] 31.2 pg *HI* (06/22/22 4:25 PM) Neutro Absolute [1.4-6.5 K/mcL] 7.6 K/mc L *HI* (06/22/22 4:25 PM) Bilirubin Total [0.2-1.2 mg/dL] 0.4 mg/d L (06/22/22 4:25 PM) Hgb [12.0-18.0 g/dL] 11.3 g/dL *LOW* (06/22/22 4:25 PM) Alk Phos [38-130 IntlUnit/L] 80 IntlUnit /L (06/22/22 4:25 PM) UA Blood [Negative] Negative (06/22/22 4:40 PM) MPV [7.4-10.4 fL] 10.7 fL *HI* (06/22/22 4:25 PM) UA Spec Grav 1.020 *NA* (06/22/22 4:40 PM) Platelets [130-400 K/mcL] 340 K/mcL (06/22/22 4:25 PM) CO2 [22-32 mmol/L] 28 mmol/L (06/22/22 4:25 PM) Eos Absolute [0.0-0.2 K/mcL] 0.0 K/mcL (06/22/22 4:25 PM) UA pH 8.00 *NA* (06/22/22 4:40 PM) eGFR Non-AA 70 *NA* (06/22/22 4:25 PM) eGFR AA 70 *NA* (06/22/22 4:25 PM) UA Appear [Clear] Cloudy *ABN* (06/22/22 4:40 PM) Chloride Level [98-111 mmol/L] 101 mmol/ L (06/22/22 4:25 PM) RDW-CV [11.5-14.5 %] 12.0 % (06/22/22 4:25 PM) A/G Ratio 1.0 *NA* (06/22/22 4:25 PM) BUN/Creat Ratio [8.0-20.0] 12.1 (1/7/23 4:25 PM) Globulin 3.9 *NA* (06/22/22 4:25 PM) Imm Gran Absolute 0.04 *NA* (06/22/22 4:25 PM) Imm Gran Auto [0.0-0.5 %] 0.4 % (06/22/22 4:25 PM) Urine Srce Clean Catch (06/22/22 4:40 PM) Creatinine Level [0.61-1.24 mg/dL] 1.41 mg/dL *HI* (06/22/22 4:25 PM) SARS-CoV or CoV-2 (COVID-19) Ag (Leonora) [Negative] Negative (06/22/22 4:16 PM) Employed in healthcare? No *NA* (06/22/22 4:30 PM) Unknown *NA* (06/22/22 4:16 PM) Symptomatic as defined by CDC? No *NA* (06/22/22 4:30 PM) Unknown *NA* (06/22/22 4:16 PM) Date of onset (Lab) Unknown *NA* (06/22/22 4:16 PM) Hospitalized due to COVID-19? No *NA* (06/22/22 4:30 PM) Unknown *NA* (06/22/22 4:16 PM) In ICU? No *NA* (06/22/22 4:30 PM) Unknown *NA* (06/22/22 4:16 PM) Group care resident? No *NA* (06/22/22 4:30 PM) Unknown *NA* (06/22/22 4:16 PM) status? Unknown *NA* (06/22/22 4:30 PM) Unknown *NA* (06/22/22 4:16 PM) SARS-CoV-2(Covid19)PCR(GXper t COVFLURSV) [Negative] Negative (06/22/22 4:30 PM) Flu A (GXpert COVFLURSV) [Negative] Nega tive (06/22/22 4:30 PM) RSV (GXpert COVFLURSV) [Negative] Negati ve (06/22/22 4:30 PM) Flu B (GXpert COVFLURSV) [Negative] Nega tive (06/22/22 4:30 PM) Anion Gap [3.0-12.0] 7.0 (06/22/22 4:25 PM) Eos, Auto [0.00-3.00 %] 0.50 % (06/22/22 4:25 PM) Radiology Reports * Exam Date Time Procedure Performing Provider Status 06/22/22 4:44 PM XR Chest 1 View Cassie Knoxa; Auth (Verified) Notes: (XR Chest 1 View) Reason For Exam: chest pain XR Chest 1 View EXAM DESCRIPTION: XR Chest 1 View 06/22/2022 INDICATION: CHEST PAIN COMPARISON: 03/09/2022 IMPRESSION: Mild focal infiltrate versus soft tissue attenuation artifact involving the peripheral left mid-lower lung field. Lungs otherwise clear with no consolidation or pulmonary edema Normal cardiomediastinal contour. No significant pleural effusion or pneumothorax. JOB #: [id number] Final Signed by: John Burciaga MD Signed (Electronic Signature): 06/22/2022 5:00 pm Vital Signs Most recent to oldest [Reference Range]: 1 2 3 Temperature Temporal Artery [36-38 Deg C] 37.0 Deg C (06/22/22 4:02 PM) Peripheral Pulse Rate [60-100 bpm] 67 bpm (06/22/22 5:45 PM) 64 bpm (06/22/22 5:30 PM) 88 bpm (06/22/22 4:45 PM) Heart Rate Monitored [60-100 bpm] 67 bpm (06/22/22 5:45 PM) 65 bpm (06/22/22 5:30 PM) 71 bpm (06/22/22 4:30 PM) Respiratory Rate [12-24 br/min] 14 br/min (06/22/22 4:02 PM) Blood Pressure [90-140/60-90 mmHg] 105/65mmHg (06/22/22 5:45 PM) 109/62mmHg (06/22/22 5:30 PM) 131/87mmHg (06/22/22 4:45 PM) Mean Arterial Pressure, Cuff [65-140 mmHg] 78 mmHg (06/22/22 5:45 PM) 78 mmHg (06/22/22 5:30 PM) 102 mmHg (1/7/23 4:45 PM) Mean Arterial Pressure Cuff 77 mmHg (06/22/22 5:45 PM) 77 mmHg (06/22/22 5:30 PM) 90 mmHg (06/22/22 4:30 PM) Weight Dosing 99.79 kg (06/22/22 4:30 PM) Weight Estimated 99.79 kg (06/22/22 4:02 PM) Height/Length Dosing 178.000 cm (06/22/22 4:30 PM) Height/Length Estimated 178.000 cm (06/22/22 4:02 PM) Social History Social History Type Response Tobacco Never tobacco user T obacco Use:. Sex Hospital Discharge Instructions Patient Education 06/22/2022 16:52:53 Community-Acquired Pneumonia, Adult Community-Acquired Pneumonia, Adult Pneumonia [...] these instructions at home: Medicines ??? Take jhlk-uwe-qxuvlrd and prescription medicines only as told by [...] soap and water are notavailable, use hand supervisor steel division. Contact a health care provider if you [...] provider. Document Revised: 03/14/2020 Document Reviewed: 03/14/2020 [employer] Patient Education ?? 2021 [employer]. Follow Up Care 06/22/2022 16:02:51 With:Follow-up with your primary care Address: When:1 week Comments:Follow-up with your primary care as needed, they will be able to reevaluate if necessaryReturn to ED if concerns Physician Emergency department Note * ANDREW Sequeira: PERFORM Event Display: ED Note Physician Authored Date: [id number] DESIRE SANCHEZ :1995 Age:26 years Sex:Male Visit Date:06/22/2022 Primary Care Physician: JARRELL HOUSER Basic Information Time Seen: ANDREW Sequeira / 06/22/2022 16:19 Chief Complaint Pt reports shortness of breath and left sided chest pain that radiates into left arm, also reports generalized body aches. History Of Present Illness: Patient 26-year-old male who presents emergency department with generalized body aches and shortness of breath. ??He notes that this been ongoing for several days.?? He notes that today he had left-sided discomfort and was fearful that he was having a heart attack. ??He notes that??he has had just generalized pain??with no focal??locality.?? He has had some shortness of breath and cough??but doesnot have any documented fevers at home. Patient has been using Tylenol at home with minimal relief??and has not been eating or drinking appropriately. Review of Systems: See HPI Physical Exam Vitals & Measurements T:??37.0?C ??(Temporal Artery)?? HR:??67??(Peripheral)?? HR:??67??(Monitored)?? RR:??14?? BP:??105/65?? SpO2:??96%?? HT:??178.000??cm?? WT:??99.79??kg??(Estimated)?? Pain Score:??6?? Patient is alert oriented ill-appearing but nontoxic Neck is supple without lymphadenopathy EOM's intact, PERRL, sclera anicteric Clear to auscultation without wheeze rales crackles Regular rate and rhythm no murmurs Abdomen is soft nontender Skin is warm and dry without edema Medical Decision Making: Minus impression was that the patient will be flu positive however his chest x- ray reveals a focal infiltrate as discussed by radiology At this time patient will be treated with??with fluids, Toradol??and is able to rest and feels better once awake. Patient will be treated as??a pneumonia and will be treated as below. Procedure No Qualifying Data Assessment/Plan 1.??CAP (community acquired pneumonia)??J18.9 Patient be sent home with doxycycline this first dose is given to him here in the emergency department and will be discharged??with a prescription Patient understands aspects of today's visit he will remain out of work for the next several days??and??will return for any new or worsening symptoms. Ordered: doxycycline hyclate 100 mg oral capsule, 100 mg = 1 cap, Oral, BID, # 20 cap, 0 Refill(s), Pharmacy: [id number], 178, cm, 06/22/22 16:30:00 EST, Height/Length Dosing, 99.79, kg, 06/22/22 16:30:00 EST, Weight Dosing ?? Orders: Sodium Chloride 0.9% 1,000 mL, Total Volume (mL): 1,000, 1,000 mL, Soln-IV, IV Bolus, 999 mL/hr, Order Duration: 1 times, Start Date: 06/22/22 16:30:00 EST, Stop Date: 06/22/22 17:29:00 EST, 99.79 kg, Populate Charting Weight From Order, 2.22, m2 Discharge Patient, 06/22/22 17:52:00 EST I did discuss with the patient that I was concerned initially for PE however??with his normal heartrate, normal oxygenation he is at low risk. ??I do not feel at this time that a CT is necessary. Patient Education Community-Acquired Pneumonia, Adult Follow Up With When Contact Information Follow-up with your primary care Within 1 week Additional Instructions: Follow-up with your primary care as needed, they will be able to reevaluate if necessary Return to ED if concerns Medication Reconciliation New Prescription doxycycline (doxycycline hyclate 100 mg oral capsule)1 Capsules Oral (given by mouth) 2 times a dayfor 10 Days. Refills: 0. ?? Changed calcitriol (calcitriol 0.25 mcg oral capsule)0.5 Oral (given by mouth) 2 times a day. TAKE ONE CAPSULE BY MOUTH EVERY DAY. ?? [id number] Oral (given by mouth) 3 times a day. ?? methadone (methadone 5 mg oral tablet)110 Milligrams Oral (given by mouth) every day as needed as needed for pain. ?? Unchanged calcium carbonate (Tums 500 mg oral tablet, chewable)800 Milligrams Chewed 2 times a day as needed as needed for dyspepsia. ?? calcium carbonate (Tums Antacid Naturals) ?? levothyroxine (levothyroxine 25 mcg (0.025 mg) oral capsule)1 Capsules Oral (given by mouth) every day. Problem List/Past Medical History Ongoing No qualifying data Historical No qualifying data Medication Administration Given Sodium Chloride 0.9%, 1000 mL, IV Bolus doxycycline, 100 mg, Oral. For: CAP (community acquired pneumonia) Toradol, 15 mg, IV Push Allergies amoxicillin??(Vomiting symptom) codeine Social History Alcohol Past Electronic Cigarette/Vaping Electronic Cigarette Use: Never. Substance Use Past Tobacco Never tobacco user Tobacco Use:. Diagnostic Results XR Chest 1 View 06/22/2022 17:03 EST XR Chest 1 View ?? 06/22/22 17:00:57 EXAM DESCRIPTION: XR Chest 1 View ?? 06/22/2022 ?? INDICATION: CHEST PAIN ?? COMPARISON: 03/09/2022 ?? IMPRESSION: Mild focal infiltrate versus soft tissue attenuation artifact involving the peripheral left mid-lower lung field. Lungs otherwise clear with no consolidation or pulmonary edema ?? Normal cardiomediastinal contour. ?? No significant pleural effusion or pneumothorax. ? JOB #: [id number] Electronically Signed By: ?? Signed By: John Burciaga MD Lab Results CBC and Differential?? LATEST RESULTS?? HISTORICAL RESULTS?? WBC?? 06/22/22 16:25?? 9.3?? 03/31/22?? 7.0?? RBC?? 06/22/22 16:25?? 3.62 ??Low?? 03/31/22?? 4.15 ??Low?? Hgb?? 06/22/22 16:25?? 11.3 ??Low?? 03/31/22?? 12.8?? Hct?? 06/22/22 16:25?? 33.6 ??Low?? 03/31/22?? 37.4?? MCV?? 06/22/22 16:25?? 92.8?? 03/31/22?? 90.1?? MCH?? 06/22/22 16:25?? 31.2 ??High?? 03/31/22?? 30.8?? MCHC?? 06/22/22 16:25?? 33.6?? 03/31/22?? 34.2?? RDW-CV?? 06/22/22 16:25?? 12.0?? 03/31/22?? 11.9?? Platelets?? 06/22/22 16:25?? 340?? 03/31/22?? 271?? MPV?? 06/22/22 16:25?? 10.7 ??High?? 03/31/22?? 10.5 ??High?? Neutro Auto?? 06/22/22 16:25?? 82.3 ??High?? 03/31/22?? 74.1?? Lymph Auto?? 06/22/22 16:25?? 11.0 ??Low?? 03/31/22?? 16.8 ??Low?? Powell Auto?? 06/22/22 16:25?? 5.4?? 03/31/22?? 8.6?? Eos, Auto?? 06/22/22 16:25?? 0.50?? 03/31/22?? 0.10?? Basophil Auto?? 06/22/22 16:25?? 0.4?? 03/31/22?? 0.1?? Imm Gran Auto?? 06/22/22 16:25?? 0.4?? 03/31/22?? 0.3?? Neutro Absolute?? 06/22/22 16:25?? 7.6 ??High?? 03/31/22?? 5.2?? Lymph Absolute?? 06/22/22 16:25?? 1.0 ??Low?? 03/31/22?? 1.2?? Powell Absolute?? 06/22/22 16:25?? 0.5?? 03/31/22?? 0.6?? Eos Absolute?? 06/22/22 16:25?? 0.0?? 03/31/22?? 0.0?? Baso Absolute?? 06/22/22 16:25?? 0.0?? 03/31/22?? 0.0?? Imm Gran Absolute?? 06/22/22 16:25?? 0.04?? 03/31/22?? 0.02? Routine Chemistry?? LATEST RESULTS?? HISTORICAL RESULTS?? Sodium Level?? 06/22/22 16:25?? 136?? 03/31/22?? 136?? Potassium Level?? 06/22/22 16:25?? 3.8?? 03/31/22?? 3.1 ??Low?? Chloride Level?? 06/22/22 16:25?? 101?? 03/31/22?? 99?? CO2?? 06/22/22 16:25?? 28?? 03/31/22?? 25?? Alk Phos?? 06/22/22 16:25?? 80?? 03/31/22?? 111?? AST?? 06/22/22 16:25?? 24?? 03/31/22?? 24?? ALT?? 06/22/22 16:25?? 18?? 03/31/22?? 36?? BUN?? 06/22/22 16:25?? 17?? 03/31/22?? 10?? Glucose Level?? 06/22/22 16:25?? 134 ??High?? 03/31/22?? 127 ??High?? Creatinine Level?? 06/22/22 16:25?? 1.41 ??High?? 03/31/22?? 0.84?? BUN/Creat Ratio?? 06/22/22 16:25?? 12.1?? 03/31/22?? 11.9?? eGFR AA?? 06/22/22 16:25?? 70?? 03/31/22?? 122?? eGFR Non-AA?? 06/22/22 16:25?? 70?? 03/31/22?? 122?? Calcium Level?? 06/22/22 16:25?? 9.4?? 03/31/22?? 7.2 ??Low?? Protein Total?? 06/22/22 16:25?? 7.7?? 03/31/22?? 7.6?? Albumin Level?? 06/22/22 16:25?? 3.8?? 03/31/22?? 3.7?? Globulin?? 06/22/22 16:25?? 3.9?? 03/31/22?? 3.9?? A/G Ratio?? 06/22/22 16:25?? 1.0?? 03/31/22?? 0.9?? Bilirubin Total?? 06/22/22 16:25?? 0.4?? 03/31/22?? 0.8?? Anion Gap?? 06/22/22 16:25?? 7.0?? 03/31/22?? 12.0?? Osmolality?? 06/22/22 16:25?? 275?? 03/31/22?? 273 ??Low? Cardiac Isoenzymes?? LATEST RESULTS?? HISTORICAL RESULTS?? Troponin-I?? 06/22/22 16:25?? <0.01?? 03/31/22?? <0.01? UA Macroscopic?? LATEST RESULTS?? Urine Srce?? 06/22/22 16:40?? Clean Catch?? UA Color?? 06/22/22 16:40?? LIGHT YELL?? UA Appear?? 06/22/22 16:40?? Cloudy Abnormal?? UA Glucose?? 06/22/22 16:40?? Negative?? UA Bili?? 06/22/22 16:40?? Negative?? UA Ketones?? 06/22/22 16:40?? Negative?? UA Spec Grav?? 06/22/22 16:40?? 1.020?? UA Blood?? 06/22/22 16:40?? Negative?? UA pH?? 06/22/22 16:40?? 8.00?? UA Protein?? 06/22/22 16:40?? Negative?? UA Urobilinogen?? 06/22/22 16:40?? 0.2?? UA Nitrite?? 06/22/22 16:40?? Negative?? UA Leuk Est?? 06/22/22 16:40?? Negative? Infectious Disease?? LATEST RESULTS?? SARS-CoV or CoV-2 (COVID-19) Ag (Leonora)?? 06/22/22 16:16?? Negative?? Employed in healthcare??? 06/22/22 16:30?? No?? Symptomatic as defined by CDC??? 06/22/22 16:30?? No?? Date of onset (Lab)?? 06/22/22 16:16?? Unknown?? Hospitalized due to COVID-19??? 06/22/22 16:30?? No?? In ICU??? 06/22/22 16:30?? No?? Group care resident??? 06/22/22 16:30?? No?? status??? 06/22/22 16:30?? Unknown?? SARS-CoV-2(Covid19)PCR(GXpert COVFLURSV)?? 06/22/22 16:30?? Negative?? Flu A (GXpert COVFLURSV)?? 06/22/22 16:30?? Negative?? Flu B (GXpert COVFLURSV)?? 06/22/22 16:30?? Negative?? RSV (GXpert COVFLURSV)?? 06/22/22 16:30?? Negative? Electronically Signed on 06/22/22 07:40 PM ANDREW Sequeira Emergency department Discharge instructions * ANDREW Sequeira: PERFORM Event Display: ED Discharge Information Authored Date: [id number] DESIRE SANCHEZ :1995 Age:26 years Sex:Male Visit Date:06/22/2022 Primary Care Physician: JARRELL HOUSER Discharge Instructions We would like to thank you for allowing us to assist you with your healthcare needs. The following includes patient education materials and information regarding your injury/illness. Diagnosis from Today's Visit CAP (community acquired pneumonia) Discharge Vitals Temperature??(Temporal Artery) 98.6 ??F (37.0 ??C) Heart Rate??(Peripheral) 67 Heart Rate??(Monitored) 67 Respiratory Rate?? 14 Blood Pressure?? 105/65?? Height?? 70.08 in (178.000 cm) Weight??(Estimated) 220.04 lb (99.79 kg) Allergies amoxicillin??(Vomiting symptom) codeine What to [...] Much When Why Instructions Next Dose New doxycycline (doxycycline hyclate 100 mg oral capsule) 1 Capsules Oral (given by mouth) 2 times a day CAP (community acquired pneumonia) Duration: 10 Days Pickup at [facility] Changed calcitriol (calcitriol 0.25 mcg oral capsule) 0.5 Oral (given by mouth) 2 times a day TAKE ONE CAPSULE BY MOUTH EVERY DAY ?? Changed gabapentin 800 Oral (given by mouth) 3 times a day Changed methadone (methadone 5 mg oral tablet) 110 Milligrams Oral (given by mouth) Every day as needed for as needed for pain Unchanged calcium carbonate (Tums 500 mg oral tablet, chewable) 800 Milligrams Chewed 2 times a day as needed for as needed for dyspepsia Unchanged calcium carbonate (Tums Antacid Naturals) Unchanged levothyroxine (levothyroxine 25 mcg (0.025 mg) oral capsule) 1 Capsules Oral (given by mouth) Every day Pharmacy Information [facility]: [address] [facility] [place], [place] [id number] [phone] Education Materials Community-Acquired Pneumonia, Adult Pneumonia is [...] these instructions at home: Medicines ? Take cfxa-zef-dwtnrga and prescription medicines only as told by [...] and water are not available, use hand supervisor steel division. Contact a health care provider if you [...] provider. Document Revised: 03/14/2020 Document Reviewed: 03/14/2020 [employer] Patient Education ?? 2021 [employer] Tests Performed Radiology XR Chest 1 View 06/22/2022 17:03 EST Medications and Immunizations Administered Given Sodium Chloride 0.9%, 1000 mL, IV Bolus Toradol, 15 mg, IV Push Lab Test Name Test Result Date/Time WBC 9.3 K/mcL 06/22/2022 16:25 EST RBC 3.62 Million/mcL 06/22/2022 16:25 EST Hgb 11.3 g/dL 06/22/2022 16:25 EST Hct 33.6 % 06/22/2022 16:25 EST MCV 92.8 fL 06/22/2022 16:25 EST MCH 31.2 pg 06/22/2022 16:25 EST MCHC 33.6 g/dL 06/22/2022 16:25 EST RDW-CV 12.0 % 06/22/2022 16:25 EST Platelets 340 K/mcL 06/22/2022 16:25 EST MPV 10.7 fL 06/22/2022 16:25 EST Neutro Auto 82.3 % 06/22/2022 16:25 EST Lymph Auto 11.0 % 06/22/2022 16:25 EST Powell Auto 5.4 % 06/22/2022 16:25 EST Eos, Auto 0.50 % 06/22/2022 16:25 EST Basophil Auto 0.4 % 06/22/2022 16:25 EST Imm Gran Auto 0.4 % 06/22/2022 16:25 EST Neutro Absolute 7.6 K/mcL 06/22/2022 16:25 EST Lymph Absolute 1.0 K/mcL 06/22/2022 16:25 EST Powell Absolute 0.5 K/mcL 06/22/2022 16:25 EST Eos Absolute 0.0 K/mcL 06/22/2022 16:25 EST Baso Absolute 0.0 K/mcL 06/22/2022 16:25 EST Imm Gran Absolute 0.04 06/22/2022 16:25 EST Sodium Level 136 mmol/L 06/22/2022 16:25 EST Potassium Level 3.8 mmol/L 06/22/2022 16:25 EST Chloride Level 101 mmol/L 06/22/2022 16:25 EST CO2 28 mmol/L 06/22/2022 16:25 EST Alk Phos 80 IntlUnit/L 06/22/2022 16:25 EST AST 24 IntlUnit/L 06/22/2022 16:25 EST ALT 18 IntlUnit/L 06/22/2022 16:25 EST BUN 17 mg/dL 06/22/2022 16:25 EST Glucose Level 134 mg/dL 06/22/2022 16:25 EST Creatinine Level 1.41 mg/dL 06/22/2022 16:25 EST BUN/Creat Ratio 12.1 06/22/2022 16:25 EST eGFR AA 70 06/22/2022 16:25 EST eGFR Non-AA 70 06/22/2022 16:25 EST Calcium Level 9.4 mg/dL 06/22/2022 16:25 EST Protein Total 7.7 g/dL 06/22/2022 16:25 EST Albumin Level 3.8 g/dL 06/22/2022 16:25 EST Globulin 3.9 06/22/2022 16:25 EST A/G Ratio 1.0 06/22/2022 16:25 EST Bilirubin Total 0.4 mg/dL 06/22/2022 16:25 EST Anion Gap 7.0 06/22/2022 16:25 EST Osmolality 275 mOsm/kg 06/22/2022 16:25 EST Troponin-I <0.01 ng/mL 06/22/2022 16:25 EST Urine Srce Clean Catch 06/22/2022 16:40 EST UA Color LIGHT YELL 06/22/2022 16:40 EST UA Appear CLOUDY. 06/22/2022 16:40 EST UA Glucose NEGATIVE 06/22/2022 16:40 EST UA Bili NEGATIVE 06/22/2022 16:40 EST UA Ketones NEGATIVE 06/22/2022 16:40 EST UA Spec Grav 1.020 06/22/2022 16:40 EST UA Blood NEGATIVE 06/22/2022 16:40 EST UA pH 8.00 06/22/2022 16:40 EST UA Protein NEGATIVE 06/22/2022 16:40 EST UA Urobilinogen 0.2 06/22/2022 16:40 EST UA Nitrite NEGATIVE 06/22/2022 16:40 EST UA Leuk Est NEGATIVE 06/22/2022 16:40 EST SARS-CoV or CoV-2 (COVID-19) Ag (Leonora) Negative 06/22/2022 16:16 EST Employed in healthcare? No 06/22/2022 16:30 EST Symptomatic as defined by CDC? No 06/22/2022 16:30 EST Date of onset (Lab) Unknown 06/22/2022 16:16 EST Hospitalized due to COVID-19? No 06/22/2022 16:30 EST In ICU? No 06/22/2022 16:30 EST Group care resident? No 06/22/2022 16:30 EST status? Unknown 06/22/2022 16:30 EST SARS-CoV-2(Covid19)PCR(GXpert COVFLURSV) Neg-GeneXPert 06/22/2022 16:30 EST Flu A ([facility]pert COVFLURSV) Neg-GeneXPert 06/22/2022 16:30 EST Flu B (GXpert COVFLURSV) Neg-GeneXPert 06/22/2022 16:30 EST RSV (G[facility]pert COVFLURSV) Neg-GeneXPert 06/22/2022 16:30 EST Patient/[employer] Signature Patient Name:DESIRE SANCHEZ I have received this information and my questions have been answered. Patient/[employer]ice [employer]worker Name: Patient/[employer] Signature: Relationship to Patient: Witness Name/Signature: Date: Electronically Signed on: 06/22/2022 17:54 ESTSigned by:AB THAO Chest Single view * John Burciaga MD: VERIFY, VERIFY Event Display: Report EXAM DESCRIPTION: XR Chest 1 View 06/22/2022 INDICATION: CHEST PAIN COMPARISON: 03/09/2022 IMPRESSION: Mild focal infiltrate versus soft tissue attenuation artifact involving the peripheral left mid-lower lung field. Lungs otherwise clear with no consolidation or pulmonary edema Normal cardiomediastinal contour. No significant pleural effusion or pneumothorax. JOB #: [id number] Final Signed by: John Burciaga MD Signed (Electronic Signature): 06/22/2022 5:00 pm Patient Care team information Personnel Name: JARRELL HOUSER Address: Address: [facility] [address] [place] [id number] [place] [address]
== END 2023-05-14 12:37 | disposition home or self-care (01) ==
PROVIDERS: Emergency Provider Student in an Organized Health Care Education/Training Program; PCP Family Medicine
DX: M79.631 Pain in right forearm (principal); G54.0 Brachial plexus disorders; F41.9 Anxiety disorder, unspecified; F32.A Depression, unspecified; E78.00 Pure hypercholesterolemia, unspecified; E31.21 Multiple endocrine neoplasia [MEN] type I; Z79.899 Other long term (current) drug therapy
CPT/HCPCS: 99282; 99283

== ENCOUNTER 2023-05-17 14:17 | Emergency (ER) | payer MEDICAID, SELFPAY ==
--- NOTE | 2023-05-17 14:15 | RT.EKG_ITS ---
APPROVED REPORT Exam: Resting ECG Reason for Exam: chest pain, sob Patient Location: E HR:101 bpm ECG Measurements Heart Rate 101 AXIS MI 185 P 26 QRSd 93 QRS 63 QT 358 T 12 QTc 465 Conclusion Sinus tachycardia...rate> 99 Physician: no stemi
[2023-05-17 14:24] VITALS: BP 138/96; PULSE 98; RESP 20; TEMP 36.8; O2SAT 99
--- OUTSIDE RECORDS SUMMARY | 2023-05-17 14:32 | XMS_ITS | Continuity of Care Document ---
Author Name Unknown Organization [facility] Address [address] [place] [address] Care Team Providers Care License Inspector Name Role Phone JARRELL HOUSER DO Primary Care Physician Encounter [facility] NBR [id number] Date(s): 05/14/23 - 05/14/23 [facility] [address] [place] [address]- Encounter Diagnosis Muscle strain(Discharge Diagnosis) - 05/14/23 Strain of unspecified muscles, fascia and tendons at forearm level, right arm, initial encounter(Final) - Exposure to other specified factors, initial encounter(Final) - Discharge Disposition: Home or Self Care Attending Physician: Uday Díaz MD Admitting Physician: Uday Díaz MD Allergies, Adverse Reactions, Alerts Substance Reaction Severity Status codeine Unknown Active amoxicillin Vomiting symptom Moderate Active penicillin Moderate Active Assessment and Plan Future Appointments Functional Status 05/14/23 Family Member Travel History No recent t [...] 6.7 g, 0 Refill(s), 06/02/23 9:14:00 PM [facility], Pharmacy: [facility], 177.8, cm, 05/03/23 20:22:00 EST, Height, [...] # 30 cap, 0 Refill(s), Pharmacy: [facility], 178, cm, 02/28/23 14:26:00 EDT, Height/Length Dosing, 104, kg, 02/28/23 14:26:00 EDT, Weight Dosing Start Date: 02/28/23 Status: Ordered Tums 500 mg oral tablet, chewable 500 mg = 1 tab, Chewed, BID, # 60 tab, 0 Refill(s) Start Date: 09/22/22 Status: Ordered Mental Status 05/14/23 Eye Opening Response [place] Spontaneous ly Best Verbal Response [place] Oriented Best Motor Response Arthur Obeytamy escobar ds [place] Coma Score 15 Problem List Condition Confirmation [...] 2 3 Temperature Oral [35.8-37.3 Deg C] 37 Deg C (05/14/23 1:25 PM) Peripheral Pulse Rate [60-100 bpm] 108 bpm *HI* (05/14/23 2:19 PM) 113 bpm *HI* (05/14/23 2:18 PM) 113 bpm *HI* (05/14/23 1:25 PM) Respiratory Rate [12-24 br/min] 16 br/min (05/14/23 1:25 PM) Blood Pressure [90-140/60-90 mmHg] 120/90mmHg (05/14/23 1:25 PM) Mean Arterial Pressure, Cuff [70-110 mmHg] 100 mmHg (05/14/23 1:25 PM) Weight Estimated 108.86 kg (05/14/23 1:25 PM) Body Mass Index Estimated 34.44 kg/m2 (05/14/23 1:25 PM) Height/Length Estimated 177.80 cm (05/14/23 1:25 PM) Social History Social History Type Response Tobacco Never tobacco user T obacco Use:. Sex Hospital Discharge Instructions Patient Education 05/14/2023 13:08:40 Muscle Strain Muscle Strain A muscle strain is an injury that occurs when a muscle is stretched beyond its normal length. Usually, a small number of muscle fibers are torn when this happens. There are three types of muscle strains. First-degree strains have the least amount of muscle fiber tearing and the least amount of pain. Second-degree and third-degree strains have more tearing and pain. Usually, recovery from muscle strain takes 1???2 weeks. Complete healing normally takes 5???6 weeks. What are the causes? This condition is caused when a sudden, violent force is placed on a muscle and stretches it too far. This may occur with a fall, while lifting, or during sports. What increases the risk? This condition is more likely to develop in athletes and people who are physically active. What are the signs or symptoms? Symptoms of this condition include: ??? Pain. ??? Tenderness. ??? Bruising. ??? Swelling. ??? Trouble using the muscle. How is this diagnosed? This condition is diagnosed based on a physical exam and your medical history. Tests may also be done, including an X-ray, ultrasound, or MRI. How is this treated? This condition is initially treated with TORRES therapy. This therapy involves: ??? Protecting the muscle from being injured again. ??? Resting the injured muscle. ??? Icing the injured muscle. ??? Applying pressure (compression) to the injured muscle. This may be done with a splint or elastic bandage. ??? Raising (elevating) the injured muscle. Your health care provider may also recommend medicine for pain. Follow these instructions at home: If you have a removable splint: ??? Wear the splint as told by your health care provider. Remove it only as told by your health care provider. ??? Check the skin around the splint every day. Tell your health care provider about any concerns. ??? Loosen the splint if your fingers or toes tingle, become numb, or turn cold and blue. ??? Keep the splint clean. ??? If the splint is not waterproof: ??? Do not let it get wet. ??? Cover it with a watertight covering when you take a bath or a shower. Managing pain, stiffness, and swelling ??? If directed, put ice on the injured area. To do this: ??? If you have a removable splint, remove it as told by your health [...] risk of damage to the area. ??? Move your fingers or toes often to reduce stiffness and swelling. ??? Raise (elevate) the injured area above the level of your heart while you are sitting or lying down. ??? Wear an elastic bandage as told by your health care provider. Make sure that it is not too tight. General instructions ??? Take jbvt-khn-nrphlqy and prescription medicines only as told by your health care provider. Treatment may include muscle relaxants or medicines for pain and inflammation that are taken by mouth or applied to the skin. ??? Restrict your activity and rest the injured muscle as told by your health care provider. Gentlemovements may be allowed. ??? If physical therapy was prescribed, do exercises as told by your health care provider. ??? Do not put pressure on any part of the splint until it is fully hardened. This may take severalhours. ??? Do not use any products that contain nicotine or tobacco. These products include cigarettes, chewing tobacco, and vaping devices, such as e-cigarettes. If you need help quitting, ask your health care provider. ??? Ask your health care provider when it is safe to drive if you have a splint. ??? Keep all follow-up visits. This is important. How is this prevented? Warm up before exercising. This helps to prevent future muscle strains. Contact a health care provider if: ??? You have more pain or swelling in the injured area. Get help right away if: ??? You have numbness or tingling in the injured area. ??? You lose a lot of strength in the injured area. Summary ??? A muscle strain is an injury that occurs when a muscle is stretched beyond its normal length. ??? This condition is caused when a sudden, violent force is placed on a muscle and stretches it too far. ??? This condition is initially treated with TORRES therapy, which involves protecting, resting, icing, compressing, and elevating. ??? Gentle movements may be allowed. If physical therapy was prescribed, do exercises as told by your health care provider. This information is not intended to replace advice given to you by your health care provider. Make sure you discuss any questions you have with your health care provider. Document Revised: 08/20/2021 Document Reviewed: 08/20/2021 [employer] Patient Education ?? 2022 [employer] Follow Up Care 05/14/2023 13:25:53 With:JARRELL HOUSER DO Address: [facility] [address] [place] [id number]- When:1 month only if needed Physician Emergency department Note * Uday Díaz MD: PERFORM Event Display: ED Note Physician Authored Date: [id number] DESIRE SANCHEZ :1995 Age:27 years Sex:Male Visit Date:05/14/2023 Primary Care Physician: JARRELL HOUSER DO Basic Information Time Seen: Uday Díaz MD / 05/14/2023 13:34 Chief Complaint Broke right wrist 10 years ago. Started having right arm burning/stabbing pain for the last 3 days.Has been taking tylenol to no effect. Last dose take last night at 0. History Of Present Illness: 27-year-old??male??frequent utilizer of the ER presents the ER complaining of??right forearm pain.?? 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 Over the past 3 days he has noticed??a pain in??the back of his forearm.?? He says it hurts to move and touch the area.?? It feels like a burning pain.?? He says he broke his wrist??several years ago but is not havingpain there.?? Denies any numbness or weakness in the hand. ??No redness or swelling. ??No fevers orchills. ?? During one of his recent ER visits he had a CTA??of the chest but the IV was in the left AC. ??No recent IVs on the right.?? He says he went to his primary care office??to be checked out??and theygiven appointment in 3 weeks.?? He says he did not want to wait that long and??he says they told him to go to the ER if he wanted to be seen sooner. Review of Systems: CONSTITUTIONAL:??No fevers or chills. ENT:??No headache or neck pain. CARDIOVASCULAR:??No chest pain or passing out episodes. RESPIRATORY:??No cough or shortness of breath. GI:??No vomiting or diarrhea. NEUROLOGIC:??No focal numbness or weakness. ?? Review of systems otherwise as stated in HPI Physical Exam Vitals & Measurements T:??37?C ??(Oral)?? HR:??113??(Peripheral)?? RR:??16?? BP:??120/90?? SpO2:??98%?? HT:??177.80??cm?? WT:??108.86??kg??(Estimated)?? BMI:??34.44?? Pain Score:??4?? O2 Therapy:??Room air?? GENERAL:??Awake and alert. ??No acute distress. HEENT:??Normocephalic, atraumatic. Neck: No midline C-spine tenderness, step-off, or crepitus. HEART:??Regular rate and rhythm. LUNGS:??No respiratory distress. EXTREMITIES: Focused examination of the right upper extremity reveals no obvious deformity. ??Thereis no erythema, warmth, induration, or fluctuance.?? Inspection of the dorsal forearm reveals some mild tenderness over the??distal extensor muscles.?? Wrist is nontender. ??Elbow nontender.?? Radialpulse 2+. ??Motor and sensory intact distally. NEUROLOGIC:??Awake, alert, and oriented x3. ??Moves all extremities. SKIN:??Warm and dry. Medical Decision Making: Right dorsal forearm??muscular pain.?? The patient denies any specific injury. ??X-rays are not indicated. ??He has mild tenderness over the extensor muscles of the forearm. ??He works construction and this is most likely a muscle strain??from overuse.?? No evidence for??neurovascular compromise. ??No recent IVs in this arm to suggest??thrombophlebitis or DVT.?? I do not see indication for any further testing.?? I recommended ibuprofen, rest, follow-up with primary care in the next several weeks if not improving, return if worse. ?? Frequent??ER utilizer. ??I had a discussion with the patient regarding his multiple recent ER visits. ??He says he gets nervous because his parents young and he says whenever he has a symptomhe thinks its potentially serious.?? We discussed alternatives such as??talking with his sister whois a nurse to get advice, calling his primary care, or considering urgent care for minor??issues.??He is agreeable with this plan. ??He knows to return to the ER for serious life-threatening issues. Procedure No Qualifying Data Assessment/Plan 1.??Muscle strain??T14.8XXA Orders: Discharge Patient, 05/14/23 14:09:00 EST Patient Education Muscle Strain Follow Up With When Contact Information CORRINA AVILA, JARRELL MEYER Within 1 month, only if needed [facility] [address] [place] [id number]- Additional Instructions: Medication Reconciliation Unchanged acetaminophen (acetaminophen [...] Unknown. Cause of : Electronically Signed on 05/14/23 02:14 PM Uday Díaz MD Emergency department Discharge instructions * Uday Díaz MD: PERFORM Event Display: ED Discharge Information Authored Date: [id number] DESIRE SANCHEZ :1995 Age:27 years Sex:Male Visit Date:05/14/2023 Primary Care Physician: JARRELL HOUSER DO Discharge Instructions We would like to thank you for allowing us to assist you with your healthcare needs. The following includes patient education materials and information regarding your injury/illness. Diagnosis from Today's Visit Muscle strain Discharge Vitals Temperature??(Oral) 98.6 ??F (37 ??C) Heart Rate??(Peripheral) 113 Respiratory Rate?? 16 Blood Pressure?? 120/90?? Height?? 70.00 in (177.80 cm) Weight??(Estimated) 240.04 lb (108.86 kg) BMI?? 34.44 Allergies amoxicillin??(Vomiting symptom) penicillin codeine What to Do Next You Need to Schedule the Following Appointments Follow Up with??JARRELL HOUSER DO When:??Within 1 month, only if needed Where: [facility] [address] [place] [id number]- Upcoming Scheduled Appointments 2022 12:15 PM EST ?? You were treated today on an [...] Chest pain due to GERD [employer] Muscle Strain A muscle strain is an injury that occurs when a muscle is stretched beyond its normal length. Usually, a small number of muscle fibers are torn when this happens. There are three types of muscle strains. First-degree strains have the least amount of muscle fiber tearing and the least amount of pain. Second-degree and third-degree strains have more tearing and pain. Usually, recovery from muscle strain takes 1???2 weeks. Complete healing normally takes 5???6 weeks. What are the causes? This condition is caused when a sudden, violent force is placed on a muscle and stretches it too far. This may occur with a fall, while lifting, or during sports. What increases the risk? This condition is more likely to develop in athletes and people who are physically active. What are the signs or symptoms? Symptoms of this condition include: ? Pain. ? Tenderness. ? Bruising. ? Swelling. ? Trouble using the muscle. How is this diagnosed? This condition is diagnosed based on a physical exam and your medical history. Tests may also be done, including an X-ray, ultrasound, or MRI. How is this treated? This condition is initially treated with TORRES therapy. This therapy involves: ? Protecting the muscle from being injured again. ? Resting the injured muscle. ? Icing the injured muscle. ? Applying pressure (compression) to the injured muscle. This may be done with a splint or elastic bandage. ? Raising (elevating) the injured muscle. Your health care provider may also recommend medicine for pain. Follow these instructions at home: If you have a removable splint: ? Wear the splint as told by your health care provider. Remove it only as told by your health care provider. ? Check the skin around the splint every day. Tell your health care provider about any concerns. ? Loosen the splint if your fingers or toes tingle, become numb, or turn cold and blue. ? Keep the splint clean. ? If the splint is not waterproof: ? Do not let it get wet. ? Cover it with a watertight covering when you take a bath or a shower. Managing pain, stiffness, and swelling ? If directed, put ice on the injured area. To do this: ? If you have a removable splint, remove it as told by your health [...] risk of damage to the area. ? Move your fingers or toes often to reduce stiffness and swelling. ? Raise (elevate) the injured area above the level of your heart while you are sitting or lying down. ? Wear an elastic bandage as told by your health care provider. Make sure that it is not too tight. General instructions ? Take xidm-fld-ywwzwir and prescription medicines only as told by your health care provider. Treatment may include muscle relaxants or medicines for pain and inflammation that are taken by mouth or applied to the skin. ? Restrict your activity and rest the injured muscle as told by your health care provider. Gentle movements may be allowed. ? If physical therapy was prescribed, do exercises as told by your health care provider. ? Do not put pressure on any part of the splint until it is fully hardened. This may take several hours. ? Do not use any products that contain nicotine or tobacco. These products include cigarettes, chewing tobacco, and vaping devices, such as e-cigarettes. If you need help quitting, ask your health careprovider. ? Ask your health care provider when it is safe to drive if you have a splint. ? Keep all follow-up visits. This is important. How is this prevented? Warm up before exercising. This helps to prevent future muscle strains. Contact a health care provider if: ? You have more pain or swelling in the injured area. Get help right away if: ? You have numbness or tingling in the injured area. ? You lose a lot of strength in the injured area. Summary ? A muscle strain is an injury that occurs when a muscle is stretched beyond its normal length. ? This condition is caused when a sudden, violent force is placed on a muscle and stretches it too far. ? This condition is initially treated with TORRES therapy, which involves protecting, resting, icing, compressing, and elevating. ? Gentle movements may be allowed. If physical therapy was prescribed, do exercises as told by your health care provider. This information is not intended to replace advice given to you by your health care provider. Make sure you discuss any questions you have with your health care provider. Document Revised: 08/20/2021 Document Reviewed: 08/20/2021 [employer] Patient Education ?? 2022 [employer] Patient/Senior Environmental Practice Leader Signature Patient Name:DESIRE SANCHEZ I have received this information and my questions have been answered. Patient/Senior Environmental Practice Leader Name: Patient/Senior Environmental Practice Leader Signature: Relationship to Patient: Witness Name/Signature: Date: Electronically Signed on: 05/14/2023 14:09 ESTSigned by: Patient Care team information Care Team Personnel Name: JARRELL HOUSER DO Position: No Access Member Role: Primary Care Physician Address: Address: [address] [address]- Name: Uday Díaz MD Position: Physician Member Role: ED Physician Address: Address: [address] [place] [id number]- Name: Abdulaziz Troncoso Position: Nurse Member Role: Registered Nurse Care Team Related Persons Name: ARY SANCHEZ Name: MILLER SANCHEZ
--- OUTSIDE RECORDS SUMMARY | 2023-05-17 14:32 | XMS_ITS | Continuity of Care Document ---
Author Name Unknown Organization [facility] Address [address] [place] [address] Care Team Providers Care Real Estate Lawyer Name Role Phone JARRELL HOUSER DO Primary Care Physician Encounter [facility] NBR [id number] Date(s): 05/14/23 - 05/14/23 [facility] [address] [place] [address]- us Discharge Disposition: Home or Self Care Attending Physician: Nadya Gamboa PA-C Admitting Physician: Nadya Gamboa PA-C Allergies, Adverse Reactions, [...] 6.7 g, 0 Refill(s), 06/02/23 9:14:00 PM [facility], Pharmacy: [facility], 177.8, cm, 05/03/23 [...] Daily, # 30 cap, 0 Refill(s), Pharmacy: [facility], 178, cm, 02/28/23 14:26:00 EDT, Height/Length [...] Parathyroid Completed Results Laboratory List Name Date Iron Panel 05/14/23 TSH w/ Rflx to Free T4 05/14/23 Vitamin B12 & Folate Level 05/14/23 Most recent to oldest [Reference Range]: 1 Folate Level [>=5.9 ng/mL] 13.8 ng/mL (05/14/23 3:10 PM) Iron Sat [20-55 %] 24 % (05/14/23 3:10 PM) Transferrin [203-362 mg/dL] 243 mg/dL (05/14/23 3:10 PM) B12 Level [180-914 pg/mL] 340 pg/mL (05/14/23 3:10 PM) TIBC 340 *NA* (05/14/23 3:10 PM) TSH [0.45-5.33 mcIntlUnit/mL] 2.54 mcInt lUnit/mL (05/14/23 3:10 PM) Iron [50-212 mcg/dL] 81 mcg/dL (05/14/23 3:10 PM) Social History Social History Type Response Tobacco Never tobacco user T obacco Use:. Sex Patient Care team information Care Team Personnel Name: JARRELL HOUSER DO Position: No Access Member Role: Primary Care Physician Address: Address: [address] [address] Care Team Related Persons Name: ARY SANCHEZ Name: MILLER SANCHEZ
--- OUTSIDE RECORDS SUMMARY | 2023-05-17 14:33 | XMS_ITS | Continuity of Care Document ---
Author Name Unknown Organization [facility] Ambulatory Clinics Address [address] [place] [address] Care Team Providers Care Employee Development Director Name Role Phone JARRELL HOUSER DO Primary Care Physician Encounter [facility] NBR [phone] Date(s): 05/14/23 - 05/14/23 [facility] Ambulatory Clinics [address] [place] [address]- Encounter Diagnosis Right forearm pain(Discharge Diagnosis) - 05/14/23 Hot flash in male(Discharge Diagnosis) - 05/14/23 Iron deficiency anemia(Discharge Diagnosis) - 05/14/23 Fatigue(Discharge Diagnosis) - 05/14/23 Pain in right forearm(Final) - Discharge Disposition: Home or Self Care [...] 6.7 g, 0 Refill(s), 06/02/23 9:14:00 PM BAND SEWER, Pharmacy: [id number], 177.8, cm, 05/03/23 20:22:00 EST, Height, [...] Daily, # 30 cap, 0 Refill(s), Pharmacy: [facility] #[id number], 178, cm, 02/28/23 14:26:00 EDT, Height/Length [...] 1 Temperature Tympanic [36.6-38.1 Deg C] 3 6.6 Deg C (05/14/23 2:29 PM) Peripheral Pulse Rate [60-100 bpm] 110 b pm *HI* (05/14/23 2:29 PM) Respiratory Rate [12-24 br/min] 18 br/mi n (05/14/23 2:29 PM) Blood Pressure [90-140/60-90 mmHg] 125/6 6mmHg (05/14/23 2:29 PM) Mean Arterial Pressure, Cuff [70-110 mmH g] 86 mmHg (05/14/23 2:29 PM) Weight 122.47 kg (05/14/23 2:29 PM) Weight Measured (lbs) 270 lb (05/14/23 2:29 PM) Weight Dosing 122.470 kg (05/14/23 2:29 PM) Social History Social History Type Response Tobacco Never tobacco user T obacco Use:. Sex Hospital Discharge Instructions Patient Education 05/14/2023 14:02:10 Iron Deficiency Anemia, Adult, Ckwv-or-Sdme Iron Deficiency Anemia, Adult Iron deficiency anemia is when you do not have enough red blood cells or hemoglobin in your blood. This happens because you have too little iron in your body. Hemoglobin carries oxygen to parts of the body. Anemia can cause your body to not get enough oxygen. What are the causes? Not eating enough foods that have iron in them. ??? The body not being able to take in iron well. ??? Needing more iron due to or heavy menstrual periods, for females. ??? Cancer. ??? Bleeding in the bowels. ??? Many blood draws. What increases the risk? Being . ??? Being a teenage girl going through a growth spurt. What are the signs or symptoms? Pale skin, lips, and nails. ??? Weakness, dizziness, and getting tired easily. ??? Headache. ??? Feeling like you cannot breathe well when moving (shortness of breath). ??? Cold hands and feet. ??? Fast heartbeat or a heartbeat that is not regular. ??? Feeling grouchy (irritable) or breathing fast. These are more common in very bad anemia. Mild anemia may not cause any symptoms. How is this treated? This condition is treated by finding out why you do not have enough iron and then getting more iron. It may include: ??? Adding foods to your diet that have a lot of iron. ??? Taking iron pills (supplements). If you are or , you may need to take extra iron. Your diet often does not provide the amount of iron that you need. ??? Getting more vitamin C in your diet. Vitamin C helps your body take in iron. You may need to take iron pills with a glass of orange juice or vitamin C pills. ??? Medicines to make heavy menstrual periods rn resource nurse. ??? Surgery. You may need blood tests to see if treatment is working. If the treatment does not seem to be working, you may need more tests. Follow these instructions at home: Medicines ??? Take isbb-pop-xvcmcmx and prescription medicines only as told by your doctor. This includes iron pills and vitamins. ??? Take iron pills when your stomach is empty. If you cannot handle this, take them with food. ??? Do not drink milk or take antacids at the same time as your iron pills. ??? Iron pills may turn your poop (stool)black. ??? If you cannot handle taking iron pills by mouth, ask your doctor about getting iron through: ??? An IV tube. ??? A shot (injection) into a muscle. Eating and drinking ??? Talk with your doctor before changing the foods you eat. He or she may tell you to eat foods that have a lot of iron, such as: ??? Liver. ??? Low-fat (lean) beef. ??? Breads and cereals that have iron added to them. ??? Eggs. ??? Dried fruit. ??? Dark green, leafy vegetables. ??? Eat fresh fruits and vegetables that are high in vitamin C. They help your body use iron. Foodswith a lot of vitamin C include: ??? Oranges. ??? Peppers. ??? Tomatoes. ??? Mangoes. ??? Drink enough fluid to keep your pee (urine) pale yellow. Managing constipation If you are taking iron pills, they may cause trouble pooping (constipation). To prevent or treat trouble pooping, you may need to: ??? Take fdfj-mdd-pfnypjo or prescription medicines. ??? Eat foods that are high in fiber. These include beans, whole grains, and fresh fruits and vegetables. ??? Limit foods that are high in fat and sugar. These include fried or sweet foods. General instructions ??? Return to your normal activities as told by your doctor. Ask your doctor what activities are safe for you. ??? Keep yourself clean, and keep things clean around you. ??? Keep all follow-up visits as told by your doctor. This is important. Contact a doctor if: ??? You feel like you may vomit (nauseous), or you vomit. ??? You feel weak. ??? You are sweating for no reason. ??? You have trouble pooping, such as: ??? Pooping less than 3 times a week. ??? Straining to poop. ??? Having poop that is hard, dry, or larger than normal. ??? Feeling full or bloated. ??? Pain in the lower belly. ??? Not feeling better after pooping. Get help right away if: ??? You pass out (faint). ??? You have chest pain. ??? You have trouble breathing that: ??? Is very bad. ??? Gets worse with physical activity. ??? You have a fast heartbeat, or a heartbeat that does not feel regular. ??? You get light-headed when getting up from sitting or lying down. These symptoms may be an emergency. Do not wait to see if the symptoms will go away. Get medical help right away. Call your local emergency services (911 in the [place] Do not drive yourself to the hospital. Summary ??? Iron deficiency anemia is when you have too little iron in your body. ??? This condition is treated by finding out why you do not have enough iron in your body and then getting more iron. ??? Take xysy-jfh-yycruvn and prescription medicines only as told by your doctor. ??? Eat fresh fruits and vegetables that are high in vitamin C. ??? Get help right away if you cannot breathe well. This information is not intended to replace advice given to you by your health care provider. Make sure you discuss any questions you have with your health care provider. Document Revised: 02/08/2020 Document Reviewed: 02/08/2020 [employer] Patient Education ?? 2021 [employer]. Physician Outpatient Note * Nadya Gamboa PA-C: PERFORM Event Display: Office Clinic Note Physician Authored Date: [id number] SANCHEZ DESIREJORGE MANRIQUEZ :1995 Age:27 years Sex:Male Visit Date:05/14/2023 Primary Care Physician: JARRELL HOUSER DO Chief Complaint PIV ??in right forearm was placed in [facility] for CAT scan yesterday. IV was removed yesterday @ 1500. Today, burning around PIV site, radiating below site to wrist. Feels off today and SOB, as well History of Present Illness This is a 27-year-old male who presents for evaluation. ??Patient was seen in the emergency department just prior to arrival in the urgent care.?? He was evaluated there for right forearm pain. ??He notes that he had an IV placed yesterday??prior to getting a CT scan??of his chest, abdomen, pelvis.?? This was done??at [facility].?? He notes that when they were attempting to??get an IV they had to try several times, even using an ultrasound.?? They ultimately were able to get access from themid forearm.?? He notes that it felt like they went deeper than they typically do??for an IV.?? He has??been experiencing??right forearm pain.?? He denies any numbness or tingling.?? No significant swelling or edema at the area.?? He is concerned for possible blood clot. ??He was evaluated in the emergency department and diagnosed with a right forearm??strain.?? He also reports that he has been feeling very fatigued. ??He also has been experiencing hot flashes over the past couple of days. ??Hedenies cough, congestion. ??He has had mild epigastric pain as well as a little bit of nausea. ??Novomiting or diarrhea.?? He is concerned that something feels very off. ??Patient has been seen for similar symptoms in the past and??does??have a diagnosis of anemia but is not supplementing with any iron or B12.?? He admits that he does not eat a lot of animal products.?? He struggles with chronic fatigue and shortness of breath with exertion Physical Exam Vitals & Measurements T:??36.6?C ??(Tympanic)?? HR:??110??(Peripheral)?? RR:??18?? BP:??125/66?? SpO2:??100%?? WT:??122.47??kg?? Pain Score:??8?? General: Alert and oriented x 3, no acute distress, well-nourished and hydrated Extremities:?? examination of the right upper extremity reveals no obvious deformity, edema, erythema,??ecchymosis. ??There is some mild tenderness but no crepitations over the extensor??tendons in the forearm. ??Wrist and elbow nontender with normal flexion, extension, supination, pronation.?Radial pulse 2+ bilaterally. Neurovascularly intact. ??No fluctuance or abscess.? Heart: Regular rate and rhythm, no murmurs, rubs, gallops Lungs: Clear to auscultation without wheezes, rales, rhonchi Abdomen: Soft, nondistended, bowel sounds normoactive,??mild epigastric tenderness, no right upper quadrant, left upper quadrant, right lower quadrant, left lower quadrant tenderness. ??No rebound, guarding, rigidity Assessment/Plan 1.??Right forearm pain??M79.631 Reassurance offered that??there is no clinical evidence of DVT on examination. ??He was also evaluated in the emergency department just prior to arrival??who also??did not??suspect DVT.?? Suspect that he??has a muscle strain??or some??residual inflammation following the blood draw however there is??no obvious edema,??purpura,??deep venous tenderness??on exam.?? I recommended alternating Tylenol and ibuprofen, regular icing, use of a compression wrap.?? If symptoms are not readily improving in the next 48 hours return for recheck.?? Should he develop any??significant swelling,??color changes, paresthesias??in the right upper extremity he is to return sooner for recheck. Ordered: Iron Panel, Blood, Routine, 05/14/23 15:07:00 EST, by Kathia MONSALVE, Lab Collect, Right forearm pain Fatigue Hot flash in male TSH w/ Rflx to Free T4, Blood, Routine, 05/14/23 15:07:00 EST, by Kathia MONSALVE, Lab Collect, Right forearm pain Fatigue Hot flash in male Vitamin B12 & Folate Level, Blood, Routine, 05/14/23 15:07:00 EST, by Kathia MONSALVE, Lab Collect, Right forearm pain Fatigue Hot flash in male ?? 2.??Iron deficiency anemia??D50.9 Reviewed with patient that multiple lab draws over the past year have revealed an iron deficiency anemia.?? I have recommended that he start an iron supplement, Slow Fe 45 mg,??taken with vitamin C??once daily.?? I also recommended that??he start a B12 supplement. ??We will check his iron and B12 le vels today.?? Explained to patient that anemia can present with fatigue, shortness of breath with exertion,??headaches,??and general feeling of being sluggish.?? I encouraged that??he??try to incorporate more iron and B12 into his diet.?? I emphasized the importance of routine follow-up with his primary care provider??to??monitor his CBC??and iron??levels.?? He expresses understanding.?? I will follow-up with him pending his lab results ?? 3.??Fatigue??R53.83 Patient reporting an ongoing??sense of feeling unwell, with various concerns including fatigue, shortness of breath,??temperature dysregulation. ??We will check his thyroid function today. ??I will follow-up with him pending these results.?? Encouraged ongoing follow-up with his primary care provider Ordered: Iron Panel, Blood, Routine, 05/14/23 15:07:00 EST, by Kathia MONSALVE, Lab Collect, Right forearm pain Fatigue Hot flash in male TSH w/ Rflx to Free T4, Blood, Routine, 05/14/23 15:07:00 EST, by Kathia MONSALVE, Lab Collect, Right forearm pain Fatigue Hot flash in male Vitamin B12 & Folate Level, Blood, Routine, 05/14/23 15:07:00 EST, by Kathia MONSALVE, Lab Collect, Right forearm pain Fatigue Hot flash in male ?? 4.??Hot flash in male??R23.2 Ordered: Iron Panel, Blood, Routine, 05/14/23 15:07:00 EST, by Kathia MONSALVE, Lab Collect, Right forearm pain Fatigue Hot flash in male TSH w/ Rflx to Free T4, Blood, Routine, 05/14/23 15:07:00 EST, by Kathia MONSALVE, Lab Collect, Right forearm pain Fatigue Hot flash in male Vitamin B12 & Folate Level, Blood, Routine, 05/14/23 15:07:00 EST, by Kathia MONSALVE, Lab Collect, Right forearm pain Fatigue Hot flash in male ?? Patient Instructions Your physical exam does not suggest??deep vein thrombosis in the right upper extremity.?? I am recommending??that you apply ice to help alleviate inflammation as well as take??ibuprofen 600 to 800 mg3 times a day to further reduce inflammation.?? Consider a compression wrap, such as an Eleno bandage.?? Should your??pain not improve or should you develop any??upper extremity swelling, discoloration, numbness or tingling into the fingers, weakness it is important that you return for recheck.?? I obtained blood work today??to??assess for??potential causes of your??fatigue and??sweats. ??We will check your thyroid studies as well as iron levels and B12 levels. ??As we discussed, you do have a diagnosis of anemia. ??This is likely??related to not eating enough iron??in the diet.?? I am recommending that you take a supplement??called Slow Fe 45 mg once daily.?? It is best that you take this with some vitamin C to enhance absorption, such as with an orange or orange juice.?? I also recommend a B12 supplement at 1000 mcg/day.?? A dissolvable tab is best absorbed, such as the brand [employer] Made. ??I have provided you a handout with a list of iron rich foods.?? It is important that you follow-up with your primary care provider to recheck your blood counts and iron levels in the next 4 to 6 weeks.?? Please follow-up for any acutely worsening symptoms. Patient Education Iron Deficiency Anemia, Adult, Hwqx-zi-Dqmq Problem List/Past Medical History Ongoing Abdominal pain [...] 1 cap, Oral, every 4 hr, PRN Albuterol (Eqv-ProAir HFA) 90 mcg/inh inhalation aerosol, 2 puffs, Inhale, every 6 hr calcitriol 0.25 mcg oral capsule, 0.25 mcg= 1 cap, Oral, BID clonazePAM 1 mg oral tablet, 1 mg= 1 tab, Oral, BID cyclobenzaprine 10 mg oral tablet, 10 mg= 1 tab, Oral, TID gabapentin 300 mg oral capsule, 300 mg= 1 cap, Oral, BID lidocaine 1.8% topical film, 1 patches, Topical, Daily Mag-G, 500 mg, Oral, BID methadone 10 mg/5 mL oral solution, 100 mg, Oral, every morning NexIUM 20 mg oral delayed release capsule, 20 mg= 1 cap, Oral, Daily omeprazole 40 mg oral delayed release capsule, 40 mg= 1 cap, Oral, Daily Tums 500 mg oral tablet, chewable, 500 [...] Cause of : Electronically Signed on 05/14/23 05:27 PM Nadya Gamboa PA-C Outpatient Summary note * Nadya Gamboa PA-C: PERFORM Event Display: Ambulatory Patient Summary Authored Date: [id number] DESIRE SANCHEZ :1995 Age:27 years Sex:Male Visit Date:05/14/2023 Primary Care Physician: JARRELL HOUSER DO Ambulatory Visit Instructions We would like to thank you for allowing us to assist you with your healthcare needs. The following includes patient education materials and information regarding your injury/illness. Your Next Steps Instructions From Your Care Team Your physical exam does not suggest??deep vein thrombosis in the right upper extremity.?? I am recommending??that you apply ice to help alleviate inflammation as well as take??ibuprofen 600 to 800 mg3 times a day to further reduce inflammation.?? Consider a compression wrap, such as an Eleno bandage.?? Should your??pain not improve or should you develop any??upper extremity swelling, discoloration, numbness or tingling into the fingers, weakness it is important that you return for recheck.?? I obtained blood work today??to??assess for??potential causes of your??fatigue and??sweats. ??We will check your thyroid studies as well as iron levels and B12 levels. ??As we discussed, you do have a diagnosis of anemia. ??This is likely??related to not eating enough iron??in the diet.?? I am recommending that you take a supplement??called Slow Fe 45 mg once daily.?? It is best that you take this with some vitamin C to enhance absorption, such as with an orange or orange juice.?? I also recommend a B12 supplement at 1000 mcg/day.?? A dissolvable tab is best absorbed, such as the brand [employer]'s Made. ??I have provided you a handout with a list of iron rich foods.?? It is important that you follow-up with your primary care provider to recheck your blood counts and iron levels in the next 4 to 6 weeks.?? Please follow-up for any acutely worsening symptoms. Scheduled Future Appointments 2022 12:15 PM EST ?? Where: [facility] Main [facility] Status: Confirmed You Need to Complete the Following Iron Panel, Blood, Routine, 05/14/23, Once, Lab Collect, Right forearm pain Fatigue Hot flash in male, Order for future visit TSH w/ Rflx to Free T4, Blood, Routine, 05/14/23, Once, Lab Collect, Right forearm pain Fatigue Hot flash in male, Order for future visit Vitamin B12 & Folate Level, Blood, Routine, 05/14/23, Once, Lab Collect, Right forearm pain Fatigue Hot flash in male, Order for future visit Medications What How Much When Why Instructions [...] due to GERD Your Summary Your Diagnosis Right forearm pain Iron deficiency anemia Fatigue Hot flash in male Problems Ongoing - Any problem that you [...] abuse Your Care Team Attending Physician - Nadya Gamboa PA-C Primary Care Physician - JARRELL HOUSER DO Discharge Vitals Temperature??(Tympanic) 97.9 ??F (36.6 ??C) Heart Rate??(Peripheral) 110 Respiratory Rate?? 18 Blood Pressure?? 125/66?? Weight?? 270.05 lb (122.47 kg) Allergies amoxicillin??(Vomiting symptom) penicillin codeine Education Materials Iron Deficiency Anemia, Adult Iron deficiency anemia is when you do not have enough red blood cells or hemoglobin in your blood. This happens because you have too little iron in your body. Hemoglobin carries oxygen to parts of the body. Anemia can cause your body to not get enough oxygen. What are the causes? Not eating enough foods that have iron in them. ? The body not being able to take in iron well. ? Needing more iron due to or heavy menstrual periods, for females. ? Cancer. ? Bleeding in the bowels. ? Many blood draws. What increases the risk? Being . ? Being a teenage girl going through a growth spurt. What are the signs or symptoms? Pale skin, lips, and nails. ? Weakness, dizziness, and getting tired easily. ? Headache. ? Feeling like you cannot breathe well when moving (shortness of breath). ? Cold hands and feet. ? Fast heartbeat or a heartbeat that is not regular. ? Feeling grouchy (irritable) or breathing fast. These are more common in very bad anemia. Mild anemia may not cause any symptoms. How is this treated? This condition is treated by finding out why you do not have enough iron and then getting more iron. It may include: ? Adding foods to your diet that have a lot of iron. ? Taking iron pills (supplements). If you are or , you may need to take extra iron. Your diet often does not provide the amount of iron that you need. ? Getting more vitamin C in your diet. Vitamin C helps your body take in iron. You may need to take iron pills with a glass of orange juice or vitamin C pills. ? Medicines to make heavy menstrual periods rn resource nurse. ? Surgery. You may need blood tests to see if treatment is working. If the treatment does not seem to be working, you may need more tests. Follow these instructions at home: Medicines ? Take mkwq-szn-zwrqxxs and prescription medicines only as told by your doctor. This includes iron pills and vitamins. ? Take iron pills when your stomach is empty. If you cannot handle this, take them with food. ? Do not drink milk or take antacids at the same time as your iron pills. ? Iron pills may turn your poop (stool)black. ? If you cannot handle taking iron pills by mouth, ask your doctor about getting iron through: ? An IV tube. ? A shot (injection) into a muscle. Eating and drinking ? Talk with your doctor before changing the foods you eat. He or she may tell you to eat foods that have a lot of iron, such as: ? Liver. ? Low-fat (lean) beef. ? Breads and cereals that have iron added to them. ? Eggs. ? Dried fruit. ? Dark green, leafy vegetables. ? Eat fresh fruits and vegetables that are high in vitamin C. They help your body use iron. Foods with a lot of vitamin C include: ? Oranges. ? Peppers. ? Tomatoes. ? Mangoes. ? Drink enough fluid to keep your pee (urine) pale yellow. Managing constipation If you are taking iron pills, they may cause trouble pooping (constipation). To prevent or treat trouble pooping, you may need to: ? Take zpwq-gls-oqfybge or prescription medicines. ? Eat foods that are high in fiber. These include beans, whole grains, and fresh fruits and vegetables. ? Limit foods that are high in fat and sugar. These include fried or sweet foods. General instructions ? Return to your normal activities as told by your doctor. Ask your doctor what activities are safe for you. ? Keep yourself clean, and keep things clean around you. ? Keep all follow-up visits as told by your doctor. This is important. Contact a doctor if: ? You feel like you may vomit (nauseous), or you vomit. ? You feel weak. ? You are sweating for no reason. ? You have trouble pooping, such as: ? Pooping less than 3 times a week. ? Straining to poop. ? Having poop that is hard, dry, or larger than normal. ? Feeling full or bloated. ? Pain in the lower belly. ? Not feeling better after pooping. Get help right away if: ? You pass out (faint). ? You have chest pain. ? You have trouble breathing that: ? Is very bad. ? Gets worse with physical activity. ? You have a fast heartbeat, or a heartbeat that does not feel regular. ? You get light-headed when getting up from sitting or lying down. These symptoms may be an emergency. Do not wait to see if the symptoms will go away. Get medical help right away. Call your local emergency services (911 in the [place] Do not drive yourself to the hospital. Summary ? Iron deficiency anemia is when you have too little iron in your body. ? This condition is treated by finding out why you do not have enough iron in your body and then getting more iron. ? Take wzfr-ivd-cbtrluz and prescription medicines only as told by your doctor. ? Eat fresh fruits and vegetables that are high in vitamin C. ? Get help right away if you cannot breathe well. This information is not intended to replace advice given to you by your health care provider. Make sure you discuss any questions you have with your health care provider. Document Revised: 02/08/2020 Document Reviewed: 02/08/2020 Else[employer] Patient Education ?? 2021 [email or web address] Electronically Signed on: 05/14/2023 15:02 ESTSigned by:DWAYNE Patient Care team information Care Team Personnel Name: JARRELL HOUSER DO Position: No Access Member Role: Primary Care Physician Address: Address: [facility] [address] [place] [phone] Care Team Related Persons Name: ARY SANCHEZ Name: MILLER SANCHEZ
--- NOTE | 2023-05-17 14:34 | ED.GENADUL_ITS ---
Discharge Plan Disposition Patient Disposition: Home Discharge Details Clinical Impression: Side effect of drug, Arthralgia of left shoulder region, Abdominal discomfort, generalized Primary Care Provider: Brendon Vivar ED Provider: Crow Gama Home Meds and New Rx's Prescriptions: Continued methadone 10 mg/5 mL solution 100 mg PO QAM magnesium gluconate 27 mg magnesium (500 mg) tablet 27 mg PO BID Qty: 60 3RF clonazepam 1 mg tablet 1 mg PO BID Qty: 56 1RF calcitriol 0.5 mcg capsule 0.5 mcg PO BID Qty: 360 3RF Hold Instructions: Resume on 06/15/22. cyclobenzaprine 10 mg tablet 10 mg PO TID PRN (Reason: muscle spasm) Qty: 30 3RF diclofenac sodium 1 % gel 4 g topical QID Qty: 100 6RF Rx Instructions: apply to single knee, ankle, foot; for foot includes sole/toes/top of foot calcium carbonate [Tums] 200 mg calcium (500 mg) tablet,chewable 2,000 mg PO BID Hold Instructions: Resume on 05/12/23. Please hold your nightly dose tonight and your a.m. dose tomorrow morning. gabapentin 300 mg capsule 300 mg PO BID pantoprazole [Protonix] [address] for susp in packet 40 mg PO DAILY Qty: 30 0RF Discharge Instructions Instructions: Shoulder Pain (ED), Enteritis (ED) Additional Instructions: You may continue to take your normally prescribed medications. I feel that your abdominal upset is secondary to the magnesium that you took for your constipation. Please stay well-hydrated and drink plenty of oral fluids and you may take [id number] Pepcid as needed. Your shoulder pain is most likely secondary to your previous fracture and aggravated injury due to your sleeping position. Please use a sling for comfort but perform range of motion of your left upper extremity 2-3 times daily while you wear the sling but you may perform activities as tolerated by pain. Continue to take lhjo-ljt-kvorell ibuprofen and acetaminophen Keep your appointment with your primary care provider for recheck of symptoms and return as needed Referrals: Brendon Vivar, [Primary Care Provider] - 2 days (Keep your appointment as scheduled for follow-up with your primary care provider) Discharge Data Discharge Date/Time-TO BE ENTERED AT DEPARTURE: 12/02/23 15:16 Medical Decision Making Patient presenting the emergency department for chief complaint of abdominal discomfort but also stating that his left shoulder had an unknown injury overnight causing pain today. Patient states that he had some of his normal constipation secondary to being on methadone and so due to this he took half a b ottle of mag citrate yesterday which did not do much so he took more of the medication this morning which caused him to have a small bowel movement but caused some GI upset with some nausea, bloating and gas. He is patient denies any fever or chills vomiting or profuse diarrhea. With patient's left shoulder he does state that he previously injured this while in the and last night slept with his arms over his head and feels that he may have injured his shoulder which was fractured. Patient denies any cardiac or respiratory symptoms except for some slight discomfort within the shoulder with deep breathing. Patient has past medical history significant for anxiety about health, depression, high cholesterol, multiple electrolyte abnormalities with subsequent parathyroidectomy on 03/26/2022 at [facility] [place], PTSD, GERD. Physical exam shows normal cardiac and respiratory exam, soft nontender abdomen with normal active bowel sounds in all quadrants and no peritoneal findings or other abn ormal findings. Examination of left shoulder does show intact range of motion but it is painful mostly with overhead movements, there is some tenderness to the scapula and parascapular region along with the superior aspects of the shoulder but lateral palpation and anterior palpation are unremarkable and exam is otherwise nondiagnostic. Patient is well familiar to myself due to multiple visits which I have assessed him. I do feel that patient's GI complaint is secondary to the mag citrate that he took. I do not feel at this time that he requires imaging given no surgical abdominal findings or peritoneal findings and patient is history of health anxiety. Discussed with patient conservative management of discomfort after mag citrate which he was agreeable to following conservative management and no further workup. Also with the shoulder given no recent injury I do feel that he aggravated old injury potentially by sleeping position. We discussed use of the sling along with continued use of [id number]-[id number] medication. Did place lidocaine patch on patient's shoulder to help with discomfort to see if this further would aid him. Patient does state he has follow-up already scheduled for Friday with primary care which I feel is appropriate. After discussion of diagnosis and plan of care patient has no further needs, questions, or concerns and states clear understanding to return to the emergency department for any worsening symptoms. This documentation was generated using [employer] dictation system, please disregard any oddities of phrase or misspellings. HPI General Mode of arrival: ambulatory . Date/Time Provider Initiated Documentation: 05/17/23 14:33 . Limitations to Documentation: no limitations . Information obtained by: patient and RN notes reviewed . History of Present Illness 27 year old M presents to the emergency department with the chief complaint of Abdominal discomfort after laxative and some shoulder pain., Patient started experiencing this day(s) (1) Patient did receive the following treatments prior to arrival, NSAID Related Data Home Medications Medication Instructions Recorded Confirmed methadone 10 mg/5 mL oral solution 100 mg PO QAM 11/16/21 05/15/23 magnesium gluconate 27 mg 27 mg PO BID #60 tabs 11/08/22 05/15/23 magnesium (500 mg) tablet calcium carbonate 200 mg calcium 2,000 mg PO BID 02/02/23 05/15/23 (500 mg) chewable tablet (Tums) gabapentin 300 mg capsule 300 mg PO BID 02/02/23 05/15/23 pantoprazole 40 mg granules 40 mg PO DAILY #30 ea 02/13/23 05/15/23 delayed-release for susp in packet (Protonix) calcitriol 0.5 mcg capsule 0.5 mcg PO BID #360 caps 04/21/23 05/15/23 clonazepam 1 mg tablet 1 mg PO BID #56 tabs 04/21/23 05/15/23 cyclobenzaprine 10 mg tablet 10 mg PO TID PRN muscle spasm #30 04/21/23 05/15/23 tabs diclofenac sodium 1 % topical gel 4 g topical QID #100 grams 04/21/23 05/15/23 Previous Rx's Medication Instructions Recorded magnesium gluconate 27 mg 27 mg PO BID #60 tabs 11/08/22 magnesium (500 mg) tablet pantoprazole 40 mg granules 40 mg PO DAILY #30 ea 02/13/23 delayed-release for susp in packet (Protonix) calcitriol 0.5 mcg capsule 0.5 mcg PO BID #360 caps 04/21/23 clonazepam 1 mg tablet 1 mg PO BID #56 tabs 04/21/23 cyclobenzaprine 10 mg tablet 10 mg PO TID PRN muscle spasm #30 04/21/23 tabs diclofenac sodium 1 % topical gel 4 g topical QID #100 grams 04/21/23 Allergies Allergy/AdvReac Type Severity Reaction Status Date / Time codeine Allergy Intermediate Verified 05/17/23 14:29 Penicillins Allergy Skin Rash Verified 05/17/23 14:29 amoxicillin AdvReac Intermediate Nausea Verified 05/17/23 14:29 dextromethorphan AdvReac Intermediate Other (See Unverified 05/17/23 14:29 [From NyQuil] Comment) doxylamine [From NyQuil] AdvReac Intermediate Other (See Unverified 05/17/23 14:29 Comment) pseudoephedrine [From NyQuil] AdvReac Intermediate Other (See Unverified 05/17/23 14:29 Comment) General Stated Complaint: Chest Pain ADRIANA: 3 Review of Systems Constitutional Constitutional: Denies chills, Denies fever(s) and Denies malaise Cardiovascular Cardiovascular: Denies chest pain and Denies dyspnea Respiratory Respiratory: Denies dyspnea Gastrointestinal Gastrointestinal: Reports as per HPI, Reports abdominal pain, Reports bloating, Reports constipation, Reports excessive flatus, Reports nausea and Denies vomiting Musculoskeletal Musculoskeletal: Reports as per HPI, Reports arthralgias, Denies muscle weakness, Reports stiffness and Denies tingling Integumentary/Breasts Skin/Breast: Denies rash Neurologic Neurologic: Denies tingling PFSH All Active Problems Abdominal discomfort, generalized (Acute) Arthralgia of left shoulder region (Acute) Side effect of drug (Acute) Brachial plexus neuropathy (Acute) Hypercalcemia (Acute) Pharyngitis (Acute) Fall (Acute) Contusion (Acute) Back pain (Acute) Abdominal pain (Acute) At high risk for hypocalcemia (Acute) Facial twitching (Acute) Fracture of tooth (Acute) Cholelithiases (Acute) 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 (Acute) Inflammatory arthritis (Acute) Costochondritis (Acute 12/13/22) [facility] Cellulitis (Acute) Severe anxiety with panic (Chronic) Family history of coronary arteriosclerosis (Chronic) Father of GA at 50, mother had GA at 42 Elevated parathyroid hormone (Acute) Suicidal ideation (Acute) Depression (Chronic) Hypocalcemia (Chronic) Hypomagnesemia (Chronic) Depression (Chronic) Primary hyperparathyroidism (Chronic) Chronic constipation (Chronic) Multiple endocrine neoplasia type I (Chronic) Iatrogenic hypocalcemia (Acute) Abdominal pain (Acute) Common bile duct dilatation (Acute) Intrahepatic bile duct dilation (Acute) Abnormal CT scan, kidney (Acute) Sphincter of Oddi dysfunction (Chronic) Therapeutic opioid induced constipation (Acute) Pulmonary nodule 1 cm or greater in diameter (Chronic) Neck pain on left side (Acute) with shoulder, upper back pain.. torticollis, radiating into left hip/leg History of electrolyte imbalance (Acute) Complex medical condition (Chronic) Serious electrolyte imbalances, with gynecomastia, possible MEN Dx, CKD and anemia with baseline anxiety and Hx PTSD. CKD (chronic kidney disease) stage 2, GFR 60-89 ml/min (Acute) GFR 64-65, with Hx FLORESITA and GFR < 45 Gynecomastia, male (Acute) b/l, per CT (Jul 2022).. Possible 2' Methadone, Clnzpm (?). Surg eval (+)/No further action. Left arm numbness (Acute) Medical History Hypocalcemia Anxiety Depression Hyperlipidemia Family history of multiple endocrine neoplasia, type 1 PTSD (post-traumatic stress disorder) Surgical History H/O parathyroidectomy Family History Mother Anxiety Asthma Depression Sister Anxiety Depression Father Cancer lung & stomach Depression Diabetes Hypertension MEN 1 (multiple endocrine neoplasia) Social History Smoking/Tobacco Use Status: Never Smoking risk assessment performed?: Yes Alcohol Intake: never Drug use: Rarely Substance use type: does not use and former substance user Details: Relapse w/ snorting 'small amount' of heroin 03/20/23 per pt Adopted: No Caregiver/Support person: No Foster care: No Household members: none Housing: apartment Number of Children: 0 Communication Needs: None Education Level: high school Do you need help understanding health information?: Never 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 and animals: Yes (Ally) Pets and animals: dog(s) Sexually active: No Do you think of yourself as: straight/heterosexual Current gender identity: male What is your relationship status?: How often do you talk on the phone with friends or family?: twice per week How often do you get together with friends or relatives?: never Do you belong to any clubs or organized social groups?: no Panel score (0-1 are the most socially isolated patients): 0 What type of physical activity do you participate in: walking Duration: 15-30 minutes/day Frequency: 5-6 times per week Maryam/Anabaptism: Gnosticist Special maryam needs: No Seatbelt use: always Helmet use: Yes Helmet use: always 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 Exam Const General: cooperative Orientation: alert, awake and oriented x3 Resp Effort & Inspection: normal respiratory effort and able to speak in complete sentences Auscultation: clear to auscultation bilaterally Cardio Rate: regular rate Rhythm: regular rhythm Heart Sounds: S1 normal and S2 normal GI Palpation: soft, not firm, no guarding, no masses, no pulsatile masses, not ri gid and tender Auscultation: normal bowel sounds Neuro General: patient alert, patient awake, patient oriented x3, gait normal and moves all extremities Extrem General: normal exam except as noted Left upper extremity: shoulder/upper arm Details: tenderness Location: of the scapula and over the subacromial bursa and abnormal ROM Details: pain with active ROM Course Vital Signs Vital signs: Vital Signs Temperature 36.8 C 05/17/23 14:24 Pulse 98 H 05/17/23 14:24 Respiratory Rate 20 05/17/23 14:24 Blood Pressure 138/96 H 05/17/23 14:24 Pulse Oximetry 99 05/17/23 14:24 Temperature 36.8 C 05/17/23 14:24 Pulse 98 H 05/17/23 14:24 Respiratory Rate 20 05/17/23 14:24 Respiratory Effort Normal 05/17/23 14:29 Respiratory Depth Normal 05/17/23 14:29 Respiratory Pattern Normal 05/17/23 14:29 Blood Pressure 138/96 H 05/17/23 14:24 Blood Pressure Position Sitting 05/17/23 14:24 Pulse Oximetry 99 05/17/23 14:24 Oxygen Delivery Method Room Air 05/17/23 14:24 Oxygen Flow Rate 0 05/17/23 14:24
[2023-05-17] MEDS: Lidocaine 5% Patch 1 PATCH TP (15:02)
== END 2023-05-17 15:16 | disposition home or self-care (01) ==
PROVIDERS: Emergency Provider Nurse Practitioner Family; PCP Family Medicine
DX: M25.512 Pain in left shoulder (principal); R07.89 Other chest pain; T88.7XXA Unspecified adverse effect of drug or medicament, initial encounter; R10.84 Generalized abdominal pain
CPT/HCPCS: 93005; 99282; 93010; 99283

== ENCOUNTER 2023-05-22 08:52 | Emergency (ER) | payer OTHER, SELFPAY ==
[2023-05-22 08:53] VITALS: BP 158/89; PULSE 113; RESP 16; TEMP 36.9; O2SAT 98
--- NOTE | 2023-05-22 09:00 | RT.EKG_ITS ---
APPROVED REPORT Exam: Resting ECG Reason for Exam: electrolyte abnormalities Patient Location: E HR:97 bpm ECG Measurements Heart Rate 97 AXIS CA 191 P 42 QRSd 97 QRS 66 QT 364 T 12 QTc 462 Conclusion Sinus rhythm..., V-rate 60- [address]. [address] segment or T wave abnormalities to suggest occlusive MO
--- OUTSIDE RECORDS SUMMARY | 2023-05-22 09:03 | XMS_ITS | Continuity of Care Document ---
Author Name Unknown Organization [facility] Address [address] [place] [address] Care Team Providers Care Instructor Extension Work Name Role Phone JARRELL HOUSER DO Primary Care Physician Encounter [facility] FIN NBR [phone] Date(s): 05/18/23 - 05/18/23 [facility] [address] [place] [address]- Encounter Diagnosis Closed head injury with concussion(Discharge Diagnosis) - 05/18/23 Discharge Disposition: Home or Self Care Attending [...] 6.7 g, 0 Refill(s), 06/02/23 9:14:00 PM [facility], Pharmacy: [id number], 177.8, [...] Daily, # 30 cap, 0 Refill(s), Pharmacy: [facility] #[id number], 178, cm, 02/28/23 14:26:00 EDT, Height/Length [...] Range]: 1 Temperature Oral [35.8-37.3 Deg C] 37.0 Deg C (05/18/23 7:45 AM) Peripheral Pulse Rate [60-100 bpm] 105 b pm *HI* (05/18/23 7:45 AM) Respiratory Rate [12-24 br/min] 16 br/mi n (05/18/23 7:45 AM) Blood Pressure [90-140/60-90 mmHg] 142/1 07mmHg *HI* (05/18/23 7:45 AM) Mean Arterial Pressure, Cuff [70-110 mmH g] 119 mmHg *HI* (05/18/23 7:45 AM) Weight 122.47 kg (05/18/23 7:45 AM) Weight Dosing 122.470 kg (05/18/23 7:45 AM) Height 178 cm (05/18/23 7:45 AM) Body Mass Index 38.65 kg/m2 (05/18/23 7:45 AM) Social History Social History Type Response Tobacco Never tobacco user T obacco Use:. Sex Hospital Discharge Instructions Patient Education 05/18/2023 07:24:47 Head Injury, Adult Head Injury, Adult There are many types of head injuries. Head injuries can be as minor as a small bump, or they can be a serious medical issue. More severe head injuries include: ??? A jarring injury to the brain (concussion). ??? A bruise (contusion) of the brain. This means there is bleeding in the brain that can cause swelling. ??? A cracked skull (skull fracture). ??? Bleeding in the brain that collects, clots, and forms a bump (hematoma). After a head injury, most problems occur within the first 24 hours, but side effects may occur up to 7???10 days after the injury. It is important to watch your condition for any changes. You may need to be observed in the emergency department or urgent care, or you may be admitted to the hospital. What are the causes? There are many possible causes of a head injury. Serious head injuries may be caused by car accidents, bicycle or motorcycle accidents, sports injuries, falls, or being struck by an object. What are the symptoms? Symptoms of a head injury include a contusion, bump, or bleeding at the site of the injury. Other physical symptoms may include: ??? Headache. ??? Nausea or vomiting. ??? Dizziness. ??? Blurred or double vision. ??? Being uncomfortable around bright lights or loud noises. ??? Seizures. ??? Feeling tired. ??? Trouble being awakened. ??? Loss of consciousness. Mental or emotional symptoms may include: ??? Irritability. ??? Confusion and memory problems. ??? Poor attention and concentration. ??? Changes in eating or sleeping habits. ??? Anxiety or depression. How is this diagnosed? This condition can usually be diagnosed based on your symptoms, a description of the injury, and a physical exam. You may also have imaging tests done, such as a CT scan or an MRI. How is this treated? Treatment for this condition depends on the severity and type of injury you have. The main goal of treatment is to prevent complications and allow the brain time to heal. Mild head injury If you have a mild head injury, you may be sent home, and treatment may include: ??? Observation. A responsible adult should stay with you for 24 hours after your injury and check on you often. ??? Physical rest. ??? Brain rest. ??? Pain medicines. Severe head injury If you have a severe head injury, treatment may include: ??? Close observation. This includes hospitalization with the following care: ??? Frequent physical exams. ??? Frequent checks of how your brain and nervous system are working (neurological status). ??? Checking your blood pressure and oxygen levels. ??? Medicines to relieve pain, prevent seizures, and decrease brain swelling. ??? Airway protection and breathing support. This may include using a ventilator. ??? Treatments that monitor and manage swelling inside the brain. ??? Brain surgery. This may be needed to: ??? Remove a collection of blood or blood clots. ??? Stop the bleeding. ??? Remove a part of the skull to allow room for the brain to swell. Follow these instructions at home: Activity ??? Rest and avoid activities that are physically hard or tiring. ??? Make sure you get enough sleep. ??? Let your brain rest by limiting activities that require a lot of thought or attention, such as: ??? Watching TV. ??? Playing memory games and puzzles. ??? Job-related work or homework. ??? Working on the computer, using social media, and texting. ??? Avoid activities that could cause another head injury, such as playing sports, until your health care provider approves. Having another head injury, especially before the first one has healed, can be dangerous. ??? Ask your health care provider when it is safe for you to return to your regular activities, including work or school. Ask your health care provider for a vynf-ex-kton plan for gradually returningto activities. ??? Ask your health care provider when you can drive, ride a bicycle, or use heavy machinery. Your ability to react may be slower after a brain injury. Do not do these activities if you are dizzy. Lifestyle ??? Do not drink alcohol until your health care provider approves. Do not use drugs. Alcohol and certain drugs may slow your recovery and can put you at risk of further injury. ??? If it is harder than usual to remember things, write them down. ??? If you are easily distracted, try to do one thing at a time. ??? Talk with family members or close friends when making important decisions. ??? Tell your friends, family, a trusted colleague, and works manager about your injury, symptoms, and restrictions. Have them watch for any new or worsening problems. General instructions ??? Take sxux-axi-vshhsto and prescription medicines only as told by your health care provider. ??? Have someone stay with you for 24 hours after your head injury. This person should watch you for any changes in your symptoms and be ready to seek medical help. ??? Keep all follow-up visits as told by your health care provider. This is important. How is this prevented? Work on improving your balance and strength to avoid falls. ??? Wear a seat belt when you are in a moving vehicle. ??? Wear a helmet when riding a bicycle, skiing, or doing any other sport or activity that has a risk of injury. ??? If you drink alcohol: ??? Limit [...] glass of hard liquor (44 mL). ??? Take safety measures in your home, such as: ??? Removing clutter and tripping hazards from floors and stairways. ??? Using grab bars in bathrooms and handrails by stairs. ??? Placing non-slip mats on floors and in bathtubs. ??? Improving lighting in dim areas. Where to find more information ??? Centers for Disease Control and Prevention: www.cdc.gov Get help right away if: ??? You have: ??? A severe headache that is not helped by medicine. ??? Trouble walking or weakness in your arms and legs. ??? Clear or bloody fluid coming from your nose or ears. ??? Changes in your vision. ??? A seizure. ??? Increased confusion or irritability. ??? Your symptoms get worse. ??? You are sleepier than normal and have trouble staying awake. ??? You lose your balance. ??? Your pupils change size. ??? Your speech is slurred. ??? Your dizziness gets worse. ??? You vomit. These symptoms may represent a serious problem that is an emergency. Do not wait to see if the symptoms will go away. Get medical help right away. Call your local emergency services (911 in the [place] Do not drive yourself to the hospital. Summary ??? Head injuries can be minor, or they can be a serious medical issue requiring immediate attention. ??? Treatment for this condition depends on the severity and type of injury you have. ??? Have someone stay with you for 24 hours after your injury and check on you often. ??? Ask your health care provider when it is safe for you to return to your regular activities, including work or school. ??? Head injury prevention includes wearing a seat belt in a motor vehicle, using a helmet on a bicycle, limiting alcohol use, and taking safety measures in your home. This information is not intended to replace advice given to you by your health care provider. Make sure you discuss any questions you have with your health care provider. Document Revised: 04/14/2020 Document Reviewed: 04/14/2020 [employer] Patient Education ?? 2022 [employer]. Follow Up Care 05/18/2023 07:45:54 With:primary care physician Address: When:3 to 5 days Physician Emergency department Note * Mariann Mckeon MD: PERFORM Event Display: ED Note Physician Authored Date: [id number] DESIRE SANCHEZ :1995 Age:27 years Sex:Male Visit Date:05/18/2023 Primary Care Physician: JARRELL HOUSER DO Basic Information Time Seen: Mariann Mckeon MD / 05/18/2023 08:21 Chief Complaint Pt comes to ER with c/o head injury, pt states she he slipped on ice ??and hit his head, now is having slow vision and my eyes are taking time to adjust to move of my head, History Of Present Illness: Patient is a 27-year-old male??who presents emergency department today for evaluation of Head injury.?? The patient states that he was outside when some younger children went running by him and he moved out this side of the pathway and then proceeded to slip on ice.?? He did strike the back right back of his head.?? He did not have loss of consciousness.?? The patient states that initially he didnot have much of a headache.?? He did not have any episodes of vomiting.?? No seizure-like activity.?? However after waking up after sleep, and watching TV his headache did worsen.?? He felt as though the lights were bothering his eyes.?? The patient denies any weakness or numbness in his extremities.?? He is not on any coagulation.?? Patient is able to recall all of the events??during and after??the fall. Review of Systems: CONSTITUTIONAL:??No fevers or chills. EYES:??No change in vision. ENT:??No sore throat. ??+ headache. ??No neck pain. CARDIOVASCULAR:??No chest pain, palpitations or passing out episodes. RESPIRATORY:??No cough, shortness of breath or hemoptysis. GI:??No abdominal pain. No nausea, vomiting or diarrhea. :??No change in urination. SKIN:??No rash. NEUROLOGIC:??No numbness or weakness. MUSCULOSKELETAL:??No swelling or pain. PSYCHIATRIC:??No depression. LYMPH:??No swelling. Review of systems otherwise as stated in HPI Physical Exam Vitals & Measurements T:??37.0?C ??(Oral)?? HR:??105??(Peripheral)?? RR:??16?? BP:??142/107?? SpO2:??100%?? HT:??178??cm?? WT:??122.47??kg?? BMI:??38.65?? Pain Score:??4?? O2 Therapy:??Aerosol mask?? GENERAL:??Well appearing in no acute distress SKIN:??No visible facial rash or cyanosis HENT:??Normocephalic, atraumatic??no scalp??hematoma or laceration, moves neck without any??discomfort PULMONARY:??The patient is speaking in full sentences. The breathing is nonlabored. They do not appear tachypneic or air hungry. NEUROLOGIC:??Normal speech. Oriented. ??5/5 strength in the bilateral upper and lower extremities without any pronator drift.?? The patient has??no past- pointing ygtifm-qv-omsb.?? Clear speech and answering all questions appropriately.?? No amnesia to the event. PSYCHIATRIC:??Normal mood and affect Medical Decision Making: Patient is 27-year-old male who presents today for evaluation of head injury.?? Patient had no amnesia to the event, he had no loss of consciousness, no seizure-like activity, no vomiting, no neurodeficit.?? His physical exam including neurological exam was unremarkable.?? The patient??at this timeI do not think requires a CT scan. ??I did discuss with him the options of doing a CT scan versus??not doing one at this time and he agrees??that he would not like a CT scan at this time.?? Normal and customary discussion with the patient about concussion??precautions??and also that his symptoms could last??for several weeks.?? Patient voiced understanding is comfortable with plan for discharge. Procedure No Qualifying Data Assessment/Plan 1.??Closed head injury with concussion??S06.0XAA Orders: Discharge Patient, 05/18/23 8:25:00 EST Patient Education Head Injury, Adult Follow Up With When Contact Information [...] Unknown. Cause of : Electronically Signed on 05/18/23 08:31 AM Mariann Mckeon MD Emergency department Discharge instructions * Mariann Mckeon MD: PERFORM Event Display: ED Discharge Information Authored Date: [id number] DESIRE SANCHEZ :1995 Age:27 years Sex:Male Visit Date:05/18/2023 Primary Care Physician: JARRELL HOUSER DO Discharge Instructions We would like to thank you for allowing us to assist you with your healthcare needs. The following includes patient education materials and information regarding your injury/illness. Diagnosis from Today's Visit Closed head injury with concussion Discharge Vitals Temperature??(Oral) 98.6 ??F (37.0 ??C) Heart Rate??(Peripheral) 105 Respiratory Rate?? 16 Blood Pressure?? 142/107?? Height?? 70.08 in (178 cm) Weight?? 270.05 lb (122.47 kg) BMI?? 38.65 Allergies amoxicillin??(Vomiting symptom) penicillin codeine What to Do Next You Need to Schedule the Following Appointments Follow Up with??primary care physician When:??Within 3 to 5 days Upcoming Scheduled Appointments 2022 12:15 PM EST [...] Chest pain due to GERD Education Materials Head Injury, Adult There are many types of head injuries. Head injuries can be as minor as a small bump, or they can be a serious medical issue. More severe head injuries include: ? A jarring injury to the brain (concussion). ? A bruise (contusion) of the brain. This means there is bleeding in the brain that can cause swelling. ? A cracked skull (skull fracture). ? Bleeding in the brain that collects, clots, and forms a bump (hematoma). After a head injury, most problems occur within the first 24 hours, but side effects may occur up to 7???10 days after the injury. It is important to watch your condition for any changes. You may need to be observed in the emergency department or urgent care, or you may be admitted to the hospital. What are the causes? There are many possible causes of a head injury. Serious head injuries may be caused by car accidents, bicycle or motorcycle accidents, sports injuries, falls, or being struck by an object. What are the symptoms? Symptoms of a head injury include a contusion, bump, or bleeding at the site of the injury. Other physical symptoms may include: ? Headache. ? Nausea or vomiting. ? Dizziness. ? Blurred or double vision. ? Being uncomfortable around bright lights or loud noises. ? Seizures. ? Feeling tired. ? Trouble being awakened. ? Loss of consciousness. Mental or emotional symptoms may include: ? Irritability. ? Confusion and memory problems. ? Poor attention and concentration. ? Changes in eating or sleeping habits. ? Anxiety or depression. How is this diagnosed? This condition can usually be diagnosed based on your symptoms, a description of the injury, and a physical exam. You may also have imaging tests done, such as a CT scan or an MRI. How is this treated? Treatment for this condition depends on the severity and type of injury you have. The main goal of treatment is to prevent complications and allow the brain time to heal. Mild head injury If you have a mild head injury, you may be sent home, and treatment may include: ? Observation. A responsible adult should stay with you for 24 hours after your injury and check on you often. ? Physical rest. ? Brain rest. ? Pain medicines. Severe head injury If you have a severe head injury, treatment may include: ? Close observation. This includes hospitalization with the following care: ? Frequent physical exams. ? Frequent checks of how your brain and nervous system are working (neurological status). ? Checking your blood pressure and oxygen levels. ? Medicines to relieve pain, prevent seizures, and decrease brain swelling. ? Airway protection and breathing support. This may include using a ventilator. ? Treatments that monitor and manage swelling inside the brain. ? Brain surgery. This may be needed to: ? Remove a collection of blood or blood clots. ? Stop the bleeding. ? Remove a part of the skull to allow room for the brain to swell. Follow these instructions at home: Activity ? Rest and avoid activities that are physically hard or tiring. ? Make sure you get enough sleep. ? Let your brain rest by limiting activities that require a lot of thought or attention, such as: ? Watching TV. ? Playing memory games and puzzles. ? Job-related work or homework. ? Working on the computer, using social media, and texting. ? Avoid activities that could cause another head injury, such as playing sports, until your health care provider approves. Having another head injury, especially before the first one has healed, can bedangerous. ? Ask your health care provider when it is safe for you to return to your regular activities, including work or school. Ask your health care provider for a kkbk-ko-yhpx plan for gradually returning to activities. ? Ask your health care provider when you can drive, ride a bicycle, or use heavy machinery. Your ability to react may be slower after a brain injury. Do not do these activities if you are dizzy. Lifestyle ? Do not drink alcohol until your health care provider approves. Do not use drugs. Alcohol and certain drugs may slow your recovery and can put you at risk of further injury. ? If it is harder than usual to remember things, write them down. ? If you are easily distracted, try to do one thing at a time. ? Talk with family members or close friends when making important decisions. ? Tell your friends, family, a trusted colleague, and works manager about your injury, symptoms, and restrictions. Have them watch for any new or worsening problems. General instructions ? Take hvuy-qhw-mjufevh and prescription medicines only as told by your health care provider. ? Have someone stay with you for 24 hours after your head injury. This person should watch you for any changes in your symptoms and be ready to seek medical help. ? Keep all follow-up visits as told by your health care provider. This is important. How is this prevented? Work on improving your balance and strength to avoid falls. ? Wear a seat belt when you are in a moving vehicle. ? Wear a helmet when riding a bicycle, skiing, or doing any other sport or activity that has a risk of injury. ? If you drink alcohol: ? Limit [...] glass of hard liquor (44 mL). ? Take safety measures in your home, such as: ? Removing clutter and tripping hazards from floors and stairways. ? Using grab bars in bathrooms and handrails by stairs. ? Placing non-slip mats on floors and in bathtubs. ? Improving lighting in dim areas. Where to find more information ? Centers for Disease Control and Prevention: www.cdc.gov Get help right away if: ? You have: ? A severe headache that is not helped by medicine. ? Trouble walking or weakness in your arms and legs. ? Clear or bloody fluid coming from your nose or ears. ? Changes in your vision. ? A seizure. ? Increased confusion or irritability. ? Your symptoms get worse. ? You are sleepier than normal and have trouble staying awake. ? You lose your balance. ? Your pupils change size. ? Your speech is slurred. ? Your dizziness gets worse. ? You vomit. These symptoms may represent a serious problem that is an emergency. Do not wait to see if the symptoms will go away. Get medical help right away. Call your local emergency services (911 in the [place] Do not drive yourself to the hospital. Summary ? Head injuries can be minor, or they can be a serious medical issue requiring immediate attention. ? Treatment for this condition depends on the severity and type of injury you have. ? Have someone stay with you for 24 hours after your injury and check on you often. ? Ask your health care provider when it is safe for you to return to your regular activities, including work or school. ? Head injury prevention includes wearing a seat belt in a motor vehicle, using a helmet on a bicycle, limiting alcohol use, and taking safety measures in your home. This information is not intended to replace advice given to you by your health care provider. Make sure you discuss any questions you have with your health care provider. Document Revised: 04/14/2020 Document Reviewed: 04/14/2020 [employer] Patient Education ?? 2022 [employer] Patient/Monotype Keyboard Operator Signature Patient Name:DESIRE SANCHEZ I have received this information and my questions have been answered. Patient/Monotype Keyboard Operator Name: Patient/Monotype Keyboard Operator Signature: Relationship to Patient: Witness Name/Signature: Date: Electronically Signed on: 05/18/2023 08:25 ESTSigned by:AF Patient Care team information Care Team Personnel Name: JARRELL HOUSER DO Position: No Access Member Role: Primary Care Physician Address: Address: [address] [id number] Name: Mariann Mckeon MD Position: Physician Member Role: ED Physician Address: Address: [address] [place] [id number] Name: Pawel Medrano Position: Nurse Member Role: ED Nurse Care Team Related Persons Name: ARY SANCHEZ Name: MILLER SANCHEZ
--- NOTE | 2023-05-22 09:06 | ED.GENADUL_ITS ---
Discharge Plan Disposition Patient Disposition: Home Condition: Good Discharge Details Clinical Impression: Fatigue Primary Care Provider: Brendon Vivar ED Provider: Kimberli Martinez Home Meds and New Rx's Prescriptions: No Action methadone 10 mg/5 mL solution 100 mg PO QAM magnesium gluconate 27 mg magnesium (500 mg) tablet 27 mg PO BID Qty: 60 3RF clonazepam 1 mg tablet 1 mg PO BID Qty: 56 1RF calcitriol 0.5 mcg capsule 0.5 mcg PO BID Qty: 360 3RF Hold Instructions: Resume on 06/15/22. cyclobenzaprine 10 mg tablet 10 mg PO TID PRN (Reason: muscle spasm) Qty: 30 3RF diclofenac sodium 1 % gel 4 g topical QID Qty: 100 6RF Rx Instructions: apply to single knee, ankle, foot; for foot includes sole/toes/top of foot pantoprazole [Protonix] [address] for susp in packet 40 mg PO DAILY Qty: 30 0RF calcium carbonate [Tums] 200 mg calcium (500 mg) tablet,chewable 2,000 mg PO BID Hold Instructions: Resume on 05/12/23. Please hold your nightly dose tonight and your a.m. dose tomorrow morning. gabapentin 300 mg capsule 300 mg PO BID multivit,calc,vaw-EG-S9-lycop [One-A-Day Men's Complete] 240 mcg-30 mcg- 300 mcg tablet 1 tab PO DAILY Discharge Instructions Instructions: Fatigue (ED) Additional Instructions: Today your calcium is 9.5, your magnesium if 1.7, and your Cr (kidney function) is 1.7. On 05/11/23 your calcium was 12.4 and your Cr (kidney function) was 2.1. Call your primary care doctor today to schedule an appointment within one week to follow up on your visit here. Return to the emergency department for new or worsening symptoms. 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 Ca was high last week, has been holding his supplements since then, now feels fatigued. Tachycardiac and hypertensive on arrival (he reports being anxious). Physical exam unremarkable. EKG appropriate intervals. No ST segment or T wave abnormalities to suggest occlusive [place]. Labs reviewed as below, CBC with Hg at baseline, CMP with Ca of 9.5 down from 12.4 on 05/11 on [facility] record review. Magnesium borderline low at 1.7, advised home supplementation. Cr improved 1.7 from 2.1 on 05/11. Patient advised of results, instructed to resume Ca supplementation and to followup with PCP this week. Repeat vital signs normal without intervention. Discharged home; discharge instructions including return precautions were reviewed with patient who verbalized understanding. All questions were answered and they are in full agreement with the plan. Lab Data Lab results reviewed: Yes I reviewed the patient's lab results. Labs: Laboratory Tests Range/Units 05/22/23 05/22/23 09:24 09:24 WBC (4.4-10.8) 10^3/uL 7.83 RBC (4.36-5.78) 10^6/uL 4.11 L Hgb (13.5-17.5) g/dL 12.6 L Hct (40.0-50.0) % 37.4 L MCV (80-95) fL 91 MCH (27.0-33.0) pg 30.7 MCHC (32.0-36.0) % 33.7 RDW (11.8-14.1) % 12.4 Plt Count (130-400) 10^3/uL 300 MPV (8.0-11.0) fL 10.2 Immature Gran % 0.1 Neutrophils % 65.1 Lymphocytes % 22.0 Monocytes % 8.6 Eosinophils % 3.7 Basophils % 0.5 Nucleated RBC % (0.0-0.3) % 0.0 Absolute Neutrophils (1.2-6.7) 10^3/uL 5.10 Absolute Lymphocytes (1.2-3.4) 10^3/uL 1.72 Absolute Monocytes (0.1-0.8) 10^3/uL 0.67 Absolute Eosinophils (0.0-0.7) 10^3/uL 0.29 Absolute Basophils (0.0-0.2) 10^3/uL 0.04 Sodium (136-145) mmol/L 141 Potassium (3.5-5.1) mmol/L 4.0 Chloride (98-107) mmol/L 100 Carbon Dioxide (21.0-32.0) mmol/L 34.5 H Anion Gap (3-11) mmol/L 6.5 BUN (7-18) mg/dL 13 Creatinine (0.70-1.30) mg/dL 1.7 H Est GFR (CKD-EPI 2020) (mL/min/1.73m2) 55.27 Glucose (74-106) mg/dL 108 H Calcium (8.5-10.1) mg/dL 9.5 Magnesium (1.8-2.4) mg/dL 1.7 L Cancelled Total Bilirubin (0.2-1.0) mg/dL 0.4 AST (15-37) U/L 41 H ALT (16-63) U/L 54 Alkaline Phosphatase (46-116) U/L 119 H Total Protein (6.4-8.2) g/dL 7.9 Albumin (3.4-5.0) g/dL 3.2 L HPI General Mode of arrival: ambulatory . Date/Time Provider Initiated Documentation: 05/22/23 09:00 . Limitations to Documentation: no limitations . Information obtained by: patient . HPI Narrative: 27yo M with hx MEN1 s/p parathyroidectomy presenting with concern for hypocalcemia. He has felt fatigued lately which often occurs when his calcium is low. Also some lip and hand tingling. Has been holding his calcium supple ments for the past week because his Ca was high last week. He is otherwise in his usual state of health with no fevers, chills, nausea, vomiting, diarrhea, chest pain, shortness of breath, palpitations, or other concerns. Related Data Home Medications Medication Instructions Recorded Confirmed methadone 10 mg/5 mL oral solution 100 mg PO QAM 11/16/21 05/22/23 magnesium gluconate 27 mg 27 mg PO BID #60 tabs 11/08/22 05/22/23 magnesium (500 mg) tablet calcium carbonate 200 mg calcium 2,000 mg PO BID 02/02/23 05/22/23 (500 mg) chewable tablet (Tums) gabapentin 300 mg capsule 300 mg PO BID 02/02/23 05/22/23 calcitriol 0.5 mcg capsule 0.5 mcg PO BID #360 caps 04/21/23 05/22/23 clonazepam 1 mg tablet 1 mg PO BID #56 tabs 04/21/23 05/22/23 cyclobenzaprine 10 mg tablet 10 mg PO TID PRN muscle spasm #30 04/21/23 05/22/23 tabs diclofenac sodium 1 % topical gel 4 g topical QID #100 grams 04/21/23 05/22/23 pantoprazole 40 mg granules 40 mg PO DAILY #30 ea 05/19/23 05/22/23 delayed-release for susp in packet (Protonix) multivit,calc,mins-folic 240 1 tab PO DAILY 05/22/23 05/22/23 mcg-vit K1 30 mcg-lycopene 300 mcg tablet (One-A-Day Men's Complete) Previous Rx's Medication Instructions Recorded magnesium gluconate 27 mg 27 mg PO BID #60 tabs 11/08/22 magnesium (500 mg) tablet calcitriol 0.5 mcg capsule 0.5 mcg PO BID #360 caps 04/21/23 clonazepam 1 mg tablet 1 mg PO BID #56 tabs 04/21/23 cyclobenzaprine 10 mg tablet 10 mg PO TID PRN muscle spasm #30 04/21/23 tabs diclofenac sodium 1 % topical gel 4 g topical QID #100 grams 04/21/23 pantoprazole 40 mg granules 40 mg PO DAILY #30 ea 05/19/23 delayed-release for susp in packet (Protonix) Allergies Allergy/AdvReac Type Severity Reaction Status Date / Time codeine Allergy Intermediate Verified 05/22/23 09:43 Penicillins Allergy Skin Rash Verified 05/22/23 09:43 amoxicillin AdvReac Intermediate Nausea Verified 05/22/23 09:43 dextromethorphan AdvReac Intermediate Other (See Unverified 05/22/23 09:43 [From NyQuil] Comment) doxylamine [From NyQuil] AdvReac Intermediate Other (See Unverified 05/22/23 09:43 Comment) pseudoephedrine [From NyQuil] AdvReac Intermediate Other (See Unverified 3 09:43 Comment) General Stated Complaint: GenMedical ADRIANA: 3 PFSH All Active Problems (Updated 05/22/23 @ 09:57 by Kimberli Martinez MD) Fatigue (Acute) Abdominal discomfort, generalized (Acute) Arthralgia of left shoulder region (Acute) Side effect of drug (Acute) Brachial plexus neuropathy (Acute) Hypercalcemia (Acute) Pharyngitis (Acute) Fall (Acute) Contusion (Acute) Back pain (Acute) Abdominal pain (Acute) At high risk for hypocalcemia (Acute) Facial twitching (Acute) Cholelithiases (Acute) 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 (Acute) Inflammatory arthritis (Acute) Costochondritis (Acute 12/13/22) [facility] ED Cellulitis (Acute) Severe anxiety with panic (Chronic) Family history of coronary arteriosclerosis (Chronic) Father of WI at 50, mother had WI at 42 Elevated parathyroid hormone (Acute) Suicidal ideation (Acute) Depression (Chronic) Hypocalcemia (Chronic) Hypomagnesemia (Chronic) Depression (Chronic) Primary hyperparathyroidism (Chronic) Chronic constipation (Chronic) Multiple endocrine neoplasia type I (Chronic) Iatrogenic hypocalcemia (Acute) Abdominal pain (Acute) Common bile duct dilatation (Acute) Intrahepatic bile duct dilation (Acute) Abnormal CT scan, kidney (Acute) Sphincter of Oddi dysfunction (Chronic) Therapeutic opioid induced constipation (Acute) Pulmonary nodule 1 cm or greater in diameter (Chronic) Neck pain on left side (Acute) with shoulder, upper back pain.. torticollis, radiating into left hip/leg History of electrolyte imbalance (Acute) Complex medical condition (Chronic) Serious electrolyte imbalances, with gynecomastia, possible MEN Dx, CKD and anemia with baseline anxiety and Hx PTSD. CKD (chronic kidney disease) stage 2, GFR 60-89 ml/min (Acute) GFR 64-65, with Hx FLORESITA and GFR < 45 Gynecomastia, male (Acute) b/l, per CT (Jul 2022).. Possible 2' Methadone, Clnzpm (?). Surg eval (+)/No further action. Left arm numbness (Acute) Medical History Hypocalcemia Anxiety Depression Hyperlipidemia Family history of multiple endocrine neoplasia, type 1 PTSD (post-traumatic stress disorder) Surgical History H/O parathyroidectomy Family History Mother Anxiety Asthma Depression Sister Anxiety Depression Father Cancer lung & stomach Depression Diabetes Hypertension MEN 1 (multiple endocrine neoplasia) Social History Smoking/Tobacco Use Status: Never Smoking risk assessment performed?: Yes Alcohol Intake: never Drug use: Rarely Substance use type: does not use and former substance user Details: Relapse w/ snorting 'small amount' of heroin 03/20/23 per pt Adopted: No Caregiver/Support person: No Foster care: No Household members: none Housing: apartment Number of Children: 0 Communication Needs: None Education Level: high school Do you need help understanding health information?: Never 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 and animals: Yes (Ally) Pets and animals: dog(s) Sexually active: No Do you think of yourself as: straight/heterosexual Current gender identity: male What is your relationship status?: How often do you talk on the phone with friends or family?: twice per week How often do you get together with friends or relatives?: never Do you belong to any clubs or organized social groups?: no Panel score (0-1 are the most socially isolated patients): 0 What type of physical activity do you participate in: walking Duration: 15-30 minutes/day Frequency: 5-6 times per week Maryam/Restoration: Druze Special maryam needs: No Seatbelt use: always Helmet use: Yes Helmet use: always 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 Head: Normocephalic, atraumatic Neck: Trachea midline, Neck supple. Cardiac: RRR, no murmurs appreciated Resp: No respiratory distress. CTAB. Abd: Soft, non-distended, nontender : No suprapubic tenderness. No CVA tenderness. Extremities: No deformities. No peripheral edema. Neurologic: GCS 15. Moves all extremities freely against gravity Course Vital Signs Vital signs: Vital Signs Temperature 36.9 C 05/22/23 08:53 Pulse 113 H 05/22/23 08:53 Respiratory Rate 16 05/22/23 08:53 Blood Pressure 158/89 H 05/22/23 08:53 Pulse Oximetry 98 05/22/23 08:53 Temperature 36.9 C 05/22/23 08:53 Temperature Source Temporal Artery Scan 05/22/23 08:53 Pulse 113 H 05/22/23 08:53 Respiratory Rate 16 05/22/23 08:53 Blood Pressure 158/89 H 05/22/23 08:53 Blood Pressure Position Sitting 05/22/23 08:53 Pulse Oximetry 98 05/22/23 08:53 Oxygen Delivery Method Room Air 05/22/23 08:53 Oxygen Flow Rate 0 05/22/23 08:53 Pain Level 0 05/22/23 08:53
[2023-05-22 09:32] LABS: Abs Immature Grans 0.01 10^3/uL (0.0-0.06); Absolute Basophil Count 0.04 10^3/uL (0.0-0.2); Absolute Eosinophil Count 0.29 10^3/uL (0.0-0.7); Absolute Lymphocyte Count 1.72 10^3/uL (1.2-3.4); Absolute Monocyte Count 0.67 10^3/uL (0.1-0.8); Basophils % 0.5; Eosinophils % 3.7; HCT 37.4 % (40.0-50.0); HGB 12.6 g/dL (13.5-17.5); Immature Grans % 0.1; MCH 30.7 pg (27.0-33.0); MCHC 33.7 % (32.0-36.0); MCV 91 fL (80-95); MPV 10.2 fL (8.0-11.0); Monocytes % 8.6; Neutrophils % 65.1; Platelet Count 300 10^3/uL (130-400); RBC 4.11 10^6/uL (4.36-5.78); RDW 12.4 % (11.8-14.1); RDW-SD 40.6 fL; WBC 7.83 10^3/uL (4.4-10.8)
[2023-05-22 09:49] LABS: ALT 54 U/L (16-63); AST 41 U/L (15-37); Albumin 3.2 g/dL (3.4-5.0); Alkaline Phosphatase 119 U/L (46-116); Anion Gap 6.5 mmol/L (3-11); BUN 13 mg/dL (7-18); Bilirubin, Total 0.4 mg/dL (0.2-1.0); CO2 34.5 mmol/L (21.0-32.0); CREATININE 1.7 mg/dL (0.70-1.30); Calcium 9.5 mg/dL (8.5-10.1); Chloride 100 mmol/L (98-107); Estimated GFR 55.27 (mL/min/1.73m2); Glucose 108 mg/dL (74-106); Magnesium 1.7 mg/dL (1.8-2.4); Sodium 141 mmol/L (136-145); Total Protein 7.9 g/dL (6.4-8.2)
[2023-05-22 10:05] VITALS: BP 105/53; PULSE 87; O2SAT 96
== END 2023-05-22 10:29 | disposition home or self-care (01) ==
PROVIDERS: Emergency Provider Student in an Organized Health Care Education/Training Program; PCP Family Medicine
DX: R20.2 Paresthesia of skin (principal); R53.83 Other fatigue; E78.5 Hyperlipidemia, unspecified; E89.2 Postprocedural hypoparathyroidism
CPT/HCPCS: 80053; 93005; 99283; 83735; 85025; 93010; 99282

== ENCOUNTER 2023-05-25 19:00 | Emergency (ER) | payer OTHER, SELFPAY ==
[2023-05-25] VITALS (18 sets, daily range): BP systolic 110–139; BP diastolic 63–90; PULSE 88–110; RESP 13–20; TEMP 36.3; O2SAT 91–97
--- NOTE | 2023-05-25 19:00 | RT.EKG_ITS ---
APPROVED REPORT Exam: Resting ECG Reason for Exam: chest tightness Patient Location: E HR:92 bpm ECG Measurements Heart Rate 92 AXIS IN 188 P 27 QRSd 94 QRS 41 QT 368 T 17 QTc 456 Conclusion Sinus rhythm...normal P axis, V-rate 60- 99 sinus rhtyhm, normal axis, normal intervals, non ischemic
--- NOTE | 2023-05-25 19:15 | DI.RAD_ITS ---
Exam(s) XR CHEST 2V PA LATERAL EXAM: XR CHEST 2V PA LATERAL CLINICAL HISTORY: cough, shortness of breath TECHNIQUE: 2D digital imaging was performed. COMPARISON: CR XR CHEST 2V PA LATERAL from 04/24/2023 FINDINGS: HEART: Normal size. Aorta: Not dilated. PULMONARY VASCULATURE: Normal. LUNGS: Clear. PLEURAL SPACE: No pleural effusion or pneumothorax. BONE:Unremarkable for age. Soft tissues: Unremarkable. IMPRESSION: No acute abnormality. DATA REPOSITORY: RADIATION DOSE DELIVERED:
--- NOTE | 2023-05-25 19:25 | ED.GENADUL_ITS ---
Discharge Plan Disposition Patient Disposition: Home Condition: Stable Discharge Details Clinical Impression: Bronchitis Primary Care Provider: Brendon Vivar ED Provider: Luh Tsai Home Meds and New Rx's Prescriptions: Continued methadone 10 mg/5 mL solution 100 mg PO QAM magnesium gluconate 27 mg magnesium (500 mg) tablet 27 mg PO BID Qty: 60 3RF clonazepam 1 mg tablet 1 mg PO BID Qty: 56 1RF calcitriol 0.5 mcg capsule 0.5 mcg PO BID Qty: 360 3RF Hold Instructions: Resume on 06/15/22. cyclobenzaprine 10 mg tablet 10 mg PO TID PRN (Reason: muscle spasm) Qty: 30 3RF diclofenac sodium 1 % gel 4 g topical QID Qty: 100 6RF Rx Instructions: apply to single knee, ankle, foot; for foot includes sole/toes/top of foot pantoprazole [Protonix] [address] for susp in packet 40 mg PO DAILY Qty: 30 0RF calcium carbonate [Tums] 200 mg calcium (500 mg) tablet,chewable 2,000 mg PO BID Hold Instructions: Resume on 05/12/23. Please hold your nightly dose tonight and your a.m. dose tomorrow morning. gabapentin 300 mg capsule 300 mg PO BID multivit,calc,xgj-LQ-I4-lycop [One-A-Day Men's Complete] 240 mcg-30 mcg- 300 mcg tablet 1 tab PO DAILY No Action amitriptyline 50 mg tablet 50 mg PO QHS Qty: 60 1RF Discharge Instructions Instructions: Acute Bronchitis (ED) Additional Instructions: Take the albuterol, 2 puffs every 4-6 hours as needed for cough, wheeze, shortness of breath Increase fluid hydration, may take Mucinex You may use cough medicine as needed Return earlier should he have new or worsening complaints Referrals: Brendon Vivar DO [Primary Care Provider] - Discharge Data Discharge Date/Time-TO BE ENTERED AT DEPARTURE: 05/25/23 20:38 Medical Decision Making 27-year-old male known to this facility presenting with chest discomfort, cough, respiratory congestion Lungs clear to auscultation, alert and oriented, low suspicion clinically for pulmonary embolism No indication in particular time, symptoms seem to be related to respiratory complaints, improvement of symptoms with albuterol solution Chest x-ray ordered which does not show No hypoxia, no respiratory distress, COVID, flu, RSV negative Return precautions reviewed and patient expressed understanding HPI General Date/Time Provider Initiated Documentation: 05/25/23 19:05 . HPI Narrative: This 27-year-old male presents with report of cough, chest tightness, and fullness. He states this started 3 days ago. He states he has had hot sweats without chills. Has not taken any gqpj-[id number] meds. Denies history of COPD or asthma. Denies any calf pain or swelling, recent flights, surgeries, long drives. Denies any nausea or vomiting. Denies any exertional component to symptoms. Denies any tobacco use. Denies history of coronary artery disease or illicit drug use. Related Data Home Medications Medication Instructions Recorded Confirmed methadone 10 mg/5 mL oral solution 100 mg PO QAM 11/16/21 05/26/23 magnesium gluconate 27 mg 27 mg PO BID #60 tabs 11/08/22 05/26/23 magnesium (500 mg) tablet calcium carbonate 200 mg calcium 2,000 mg PO BID 02/02/23 05/26/23 (500 mg) chewable tablet (Tums) gabapentin 300 mg capsule 300 mg PO BID 02/02/23 05/26/23 calcitriol 0.5 mcg capsule 0.5 mcg PO BID #360 caps 04/21/23 05/26/23 clonazepam 1 mg tablet 1 mg PO BID #56 tabs 04/21/23 05/26/23 cyclobenzaprine 10 mg tablet 10 mg PO TID PRN muscle spasm #30 04/21/23 05/26/23 tabs diclofenac sodium 1 % topical gel 4 g topical QID #100 grams 04/21/23 05/26/23 pantoprazole 40 mg granules 40 mg PO DAILY #30 ea 05/19/23 05/26/23 delayed-release for susp in packet (Protonix) multivit,calc,mins-folic 240 1 tab PO DAILY 05/22/23 05/26/23 mcg-vit K1 30 mcg-lycopene 300 mcg tablet (One-A-Day Men's Complete) amitriptyline 50 mg tablet 50 mg PO QHS #60 tabs 05/26/23 05/26/23 Previous Rx's Medication Instructions Recorded magnesium gluconate 27 mg 27 mg PO BID #60 tabs 11/08/22 magnesium (500 mg) tablet calcitriol 0.5 mcg capsule 0.5 mcg PO BID #360 caps 04/21/23 clonazepam 1 mg tablet 1 mg PO BID #56 tabs 04/21/23 cyclobenzaprine 10 mg tablet 10 mg PO TID PRN muscle spasm #30 04/21/23 tabs diclofenac sodium 1 % topical gel 4 g topical QID #100 grams 04/21/23 pantoprazole 40 mg granules 40 mg PO DAILY #30 ea 05/19/23 delayed-release for susp in packet (Protonix) amitriptyline 50 mg tablet 50 mg PO QHS #60 tabs 05/26/23 Allergies Allergy/AdvReac Type Severity Reaction Status Date / Time codeine Allergy Intermediate Verified 05/26/23 08:05 Penicillins Allergy Skin Rash Verified 05/26/23 08:05 amoxicillin AdvReac Intermediate Nausea Verified 05/26/23 08:05 dextromethorphan AdvReac Intermediate Other (See Unverified 05/26/23 08:05 [From NyQuil] Comment) doxylamine [From NyQuil] AdvReac Intermediate Other (See Unverified 05/26/23 08:05 Comment) pseudoephedrine [From NyQuil] AdvReac Intermediate Other (See Unverified 05/26/23 08:05 Comment) General Stated Complaint: RespSymp ADRIANA: 3 PFSH All Active Problems (Updated 05/25/23 @ 20:29 by ANDREW Arriaga) Bronchitis (Acute) Fatigue (Acute) Abdominal discomfort, generalized (Acute) Arthralgia of left shoulder region (Acute) Side effect of drug (Acute) Brachial plexus neuropathy (Acute) Hypercalcemia (Acute) Pharyngitis (Acute) Fall (Acute) Contusion (Acute) Back pain (Acute) Abdominal pain (Acute) At high risk for hypocalcemia (Acute) Facial twitching (Acute) Cholelithiases (Acute) 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 (Acute) Inflammatory arthritis (Acute) Costochondritis (Acute 12/13/22) [facility] Cellulitis (Acute) Severe anxiety with panic (Chronic) Family history of coronary arteriosclerosis (Chronic) Father of CA at 50, mother had CA at 42 Elevated parathyroid hormone (Acute) Suicidal ideation (Acute) Depression (Chronic) Hypocalcemia (Chronic) Hypomagnesemia (Chronic) Depression (Chronic) Primary hyperparathyroidism (Chronic) Chronic constipation (Chronic) Multiple endocrine neoplasia type I (Chronic) Iatrogenic hypocalcemia (Acute) Abdominal pain (Acute) Common bile duct dilatation (Acute) Intrahepatic bile duct dilation (Acute) Abnormal CT scan, kidney (Acute) Sphincter of Oddi dysfunction (Chronic) Therapeutic opioid induced constipation (Acute) Pulmonary nodule 1 cm or greater in diameter (Chronic) Neck pain on left side (Acute) with shoulder, upper back pain.. torticollis, radiating into left hip/leg History of electrolyte imbalance (Acute) Complex medical condition (Chronic) Serious electrolyte imbalances, with gynecomastia, possible MEN Dx, CKD and anemia with baseline anxiety and Hx PTSD. CKD (chronic kidney disease) stage 2, GFR 60-89 ml/min (Acute) GFR 64-65, with Hx FLORESITA and GFR < 45 Gynecomastia, male (Acute) b/l, per CT (Jul 2022).. Possible 2' Methadone, Clnzpm (?). Surg eval (+)/No further action. Left arm numbness (Acute) Medical History Hypocalcemia Anxiety Depression Hyperlipidemia Family history of multiple endocrine neoplasia, type 1 PTSD (post-traumatic stress disorder) Surgical History H/O parathyroidectomy Family History Mother Anxiety Asthma Depression Sister Anxiety Depression Father Cancer lung & stomach Depression Diabetes Hypertension MEN 1 (multiple endocrine neoplasia) Social History Smoking/Tobacco Use Status: Never Smoking risk assessment performed?: Yes Alcohol Intake: never Drug use: Rarely Substance use type: does not use and former substance user Details: Relapse w/ snorting 'small amount' of heroin 03/20/23 per pt Adopted: No Caregiver/Support person: No Foster care: No Household members: none Housing: apartment Number of Children: 0 Communication Needs: None Education Level: high school Do you need help understanding health information?: Never 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 and animals: Yes (Ally) Pets and animals: dog(s) Sexually active: No Do you think of yourself as: straight/heterosexual Current gender identity: male What is your relationship status?: How often do you talk on the phone with friends or family?: twice per week How often do you get together with friends or relatives?: never Do you belong to any clubs or organized social groups?: no Panel score (0-1 are the most socially isolated patients): 0 What type of physical activity do you participate in: walking Duration: 15-30 minutes/day Frequency: 5-6 times per week Maryam/Uatsdin: Yazidi Special maryam needs: No Seatbelt use: always Helmet use: Yes Helmet use: always Drive 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 Course Vital Signs Vital signs: Vital Signs Temperature 36.3 C L 05/25/23 19:03 Pulse 100 H 05/25/23 19:03 Respiratory Rate 20 05/25/23 19:03 Blood Pressure 139/90 05/25/23 19:03 Pulse Oximetry 94 05/25/23 19:03 Temperature 36.3 C L 05/25/23 19:03 Temperature Source Skin 05/25/23 19:03 Pulse 100 H 05/25/23 19:03 Respiratory Rate 20 05/25/23 19:03 Respiratory Effort Non-Labored 05/25/23 19:09 Respiratory Depth Normal 05/25/23 19:09 Blood Pressure 139/90 05/25/23 19:03 Blood Pressure Position Supine 05/25/23 19:03 Pulse Oximetry 94 05/25/23 19:03 Oxygen Delivery Method Room Air 05/25/23 19:03 Oxygen Flow Rate 0 05/25/23 19:03 Pain Level 5 05/25/23 19:03
[2023-05-25] MEDS: Albuterol HFA 8 GM 60 PUFF INH IH (19:33)
--- NOTE | 2023-05-25 20:05 | DI.VRAD_ITS ---
PROCEDURE INFORMATION: Exam: XR Chest Exam date and time: 05/25/2023 7:37 PM Age: 27 years old Clinical indication: Cough and shortness of breath TECHNIQUE: Imaging protocol: Radiologic exam of the chest. Views: 2 views. COMPARISON: CR XR CHEST 2V PA LATERAL 04/24/2023 1:20 PM FINDINGS: Lungs: No consolidation. No Mass Pleural spaces: No pleural effusion. No pneumothorax. Heart/Mediastinum: Unremarkable Bones/joints: No significant abnormality IMPRESSION: No acute findings. Dictated and Authenticated by: Van Muniz MD. Ordering:JOYCE Arvizu MD
== END 2023-05-25 20:38 | disposition home or self-care (01) ==
PROVIDERS: Emergency Provider Physician Assistant; PCP Family Medicine
DX: J40 Bronchitis, not specified as acute or chronic (principal); R09.89 Other specified symptoms and signs involving the circulatory and respiratory systems; R05.9 Cough, unspecified
CPT/HCPCS: 87426; 93005; 99283; 71046; 93010

== ENCOUNTER 2023-05-30 05:32 | Emergency (ER) | payer OTHER, SELFPAY ==
[2023-05-30] VITALS (11 sets, daily range): BP systolic 124–131; BP diastolic 80–84; PULSE 104–144; RESP 13–28; TEMP 36.8; O2SAT 93–98
--- NOTE | 2023-05-30 05:45 | RT.EKG_ITS ---
APPROVED REPORT Exam: Resting ECG Reason for Exam: tachycardia Patient Location: E HR:113 bpm ECG Measurements Heart Rate 113 AXIS VA 171 P 34 QRSd 96 QRS 84 QT 348 T 25 QTc 477 Conclusion Sinus tachycardia...rate> [address]. [address] segment or T wave abnormlaiteis to suggest occlusive [place].
--- NOTE | 2023-05-30 05:56 | ED.GENADUL_ITS ---
Discharge Plan Disposition Patient Disposition: Home Condition: Good Discharge Details Clinical Impression: Cellulitis Primary Care Provider: Brendon Vivar ED Provider: Kimberli Martinez Home Meds and New Rx's Prescriptions: New cephalexin 500 mg tablet 500 mg PO QID Qty: 24 0RF No Action methadone 10 mg/5 mL solution 100 mg PO QAM magnesium gluconate 27 mg magnesium (500 mg) tablet 27 mg PO BID Qty: 60 3RF clonazepam 1 mg tablet 1 mg PO BID Qty: 56 1RF calcitriol 0.5 mcg capsule 0.5 mcg PO BID Qty: 360 3RF Hold Instructions: Resume on 06/15/22. cyclobenzaprine 10 mg tablet 10 mg PO TID PRN (Reason: muscle spasm) Qty: 30 3RF diclofenac sodium 1 % gel 4 g topical QID Qty: 100 6RF Rx Instructions: apply to single knee, ankle, foot; for foot includes sole/toes/top of foot pantoprazole [Protonix] [address] for susp in packet 40 mg PO DAILY Qty: 30 0RF amitriptyline 50 mg tablet 50 mg PO QHS Qty: 60 1RF calcium carbonate [Tums] 200 mg calcium (500 mg) tablet,chewable 2,000 mg PO BID Hold Instructions: Resume on 05/12/23. Please hold your nightly dose tonight and your a.m. dose tomorrow morning. gabapentin 300 mg capsule 300 mg PO BID Discharge Instructions Instructions: Cellulitis (ED) Additional Instructions: Cephalexin every 6 hours for the next 7 days. Symptoms should start to improve after 48 hours. Call your primary care doctor today to schedule an appointment within one week to follow up on your visit here. Return to the emergency department for new or worsening symptoms including fever, blurry vision, or if your symptoms are not improving after 48 hours. Referrals: Brendon Vivar DO [Primary Care Provider] - Medical Decision Making 27yo M with hx MEN1 s/p parathyroidectomy, anxiety, presenting for left sided facial warmth and redness for two days. Symptoms have been worsening and he now has redness to his left eye. Tachycardiac in triage after walking in to 130's, 110's on my exam without intervention. Vital signs otherwise reassuring. On exam he does have erythema and warmth to his left face and neck with some conjuctival injection. No tenderness. Not concerned for deep space neck infection. Afebrile, not overtly septic. Exam concerning for allergic reaction (? dermatitis), patient does report dog sleeping in his bed over the past several days which is new. No intraoral lesions, no indication of otitis, mastoid non-tender not concerned for mastoiditits. Will give PO benadryl and 1L IVFB and reassess, screen with bloodwork. EKG sinus tachycardia with rate in 110's. Labs reviewed as below, reassuring. CBC with no leukocytosis. CMP reassuring with Cr at baseline, normal calcium, mild hypokalemia at 3.4. Not septic. On reassessment no improvement with benadyrl, HR in 90's -100's (he typically runs in this range). Will treat for cellulitis with course of keflex . Discharged home. Discharge instructions and return precautions were reviewed with patient who verbalized understanding. All questions were answered and he is in full agreement with the plan. HPI General Mode of arrival: ambulatory . Date/Time Provider Initiated Documentation: 05/30/23 05:35 . Limitations to Documentation: no limitations . Information obtained by: patient . HPI Narrative: 27yo M with hx MEN1 s/p parathyroidectomy, anxiety, presenting for left sided facial warmth and redness for two days. Symptoms have been worsening and he now has redness to his left eye. No itching. No pain at all including no pain in the area of redness, no ear pain, no throat pain. No difficulty swallowing. No fevers. Recently started on amitriptyline. He is otherwise in his usual state of health with other rash, nausea, vomiting, abdominal pain, wheezing, shortness of breath, chest pain, numbness, tingling, weakness, or other concerns. Related Data Home Medications Medication Instructions Recorded Confirmed methadone 10 mg/5 mL oral solution 100 mg PO QAM 11/16/21 05/30/23 magnesium gluconate 27 mg 27 mg PO BID #60 tabs 11/08/22 05/30/23 magnesium (500 mg) tablet calcium carbonate 200 mg calcium 2,000 mg PO BID 02/02/23 05/30/23 (500 mg) chewable tablet (Tums) gabapentin 300 mg capsule 300 mg PO BID 02/02/23 05/30/23 calcitriol 0.5 mcg capsule 0.5 mcg PO BID #360 caps 04/21/23 05/30/23 clonazepam 1 mg tablet 1 mg PO BID #56 tabs 04/21/23 05/30/23 cyclobenzaprine 10 mg tablet 10 mg PO TID PRN muscle spasm #30 04/21/23 05/30/23 tabs diclofenac sodium 1 % topical gel 4 g topical QID #100 grams 04/21/23 05/30/23 pantoprazole 40 mg granules 40 mg PO DAILY #30 ea 05/19/23 05/30/23 delayed-release for susp in packet (Protonix) amitriptyline 50 mg tablet 50 mg PO QHS #60 tabs 05/26/23 05/30/23 cephalexin 500 mg tablet 500 mg PO QID #24 tabs 05/30/23 Previous Rx's Medication Instructions Recorded magnesium gluconate 27 mg 27 mg PO BID #60 tabs 11/08/22 magnesium (500 mg) tablet calcitriol 0.5 mcg capsule 0.5 mcg PO BID #360 caps 04/21/23 clonazepam 1 mg tablet 1 mg PO BID #56 tabs 04/21/23 cyclobenzaprine 10 mg tablet 10 mg PO TID PRN muscle spasm #30 04/21/23 tabs diclofenac sodium 1 % topical gel 4 g topical QID #100 grams 04/21/23 pantoprazole 40 mg granules 40 mg PO DAILY #30 ea 05/19/23 delayed-release for susp in packet (Protonix) amitriptyline 50 mg tablet 50 mg PO QHS #60 tabs 05/26/23 cephalexin 500 mg tablet 500 mg PO QID #24 tabs 05/30/23 Allergies Allergy/AdvReac Type Severity Reaction Status Date / Time codeine Allergy Intermediate Verified 05/30/23 05:43 Penicillins Allergy Skin Rash Verified 05/30/23 05:43 amoxicillin AdvReac Intermediate Nausea Verified 05/30/23 05:43 dextromethorphan AdvReac Intermediate Other (See Unverified 05/30/23 05:43 [From NyQuil] Comment) doxylamine [From NyQuil] AdvReac Intermediate Other (See Unverified 05/30/23 05:43 Comment) pseudoephedrine [From NyQuil] AdvReac Intermediate Other (See Unverified 05/30/23 05:43 Comment) General Stated Complaint: [employer]Medical ADRIANA: 3 Review of Systems Narrative: see HPI PFSH All Active Problems (Updated 05/30/23 @ 06:48 by Kimberli Martinez MD) Bronchitis (Acute) Fatigue (Acute) Abdominal discomfort, generalized (Acute) Arthralgia of left shoulder region (Acute) Side effect of drug (Acute) Brachial plexus neuropathy (Acute) Hypercalcemia (Acute) Pharyngitis (Acute) Fall (Acute) Contusion (Acute) Back pain (Acute) Abdominal pain (Acute) Cholelithiases (Acute) 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 (Acute) Inflammatory arthritis (Acute) Costochondritis (Acute 12/13/22) H ED Cellulitis (Acute) Severe anxiety with panic (Chronic) Family history of coronary arteriosclerosis (Chronic) Father of [place] at 50, mother had [place] at 42 Elevated parathyroid hormone (Acute) Suicidal ideation (Acute) Depression (Chronic) Hypocalcemia (Chronic) Hypomagnesemia (Chronic) Depression (Chronic) Primary hyperparathyroidism (Chronic) Chronic constipation (Chronic) Multiple endocrine neoplasia type I (Chronic) Iatrogenic hypocalcemia (Acute) Abdominal pain (Acute) Common bile duct dilatation (Acute) Intrahepatic bile duct dilation (Acute) Abnormal CT scan, kidney (Acute) Sphincter of Oddi dysfunction (Chronic) Therapeutic opioid induced constipation (Acute) Pulmonary nodule 1 cm or greater in diameter (Chronic) Neck pain on left side (Acute) with shoulder, upper back pain.. torticollis, radiating into left hip/leg History of electrolyte imbalance (Acute) Complex medical condition (Chronic) Serious electrolyte imbalances, with gynecomastia, possible MEN Dx, CKD and anemia with baseline anxiety and Hx PTSD. CKD (chronic kidney disease) stage 2, GFR 60-89 ml/min (Acute) GFR 64-65, with Hx FLORESITA and GFR < 45 Gynecomastia, male (Acute) b/l, per CT (Jul 2022).. Possible 2' Methadone, Clnzpm (?). Surg eval (+)/No further action. Left arm numbness (Acute) Medical History Hypocalcemia Anxiety Depression Hyperlipidemia Family history of multiple endocrine neoplasia, type 1 PTSD (post-traumatic stress disorder) Surgical History H/O parathyroidectomy Family History Mother Anxiety Asthma Depression Sister Anxiety Depression Father Cancer lung & stomach Depression Diabetes Hypertension MEN 1 (multiple endocrine neoplasia) Social History Smoking/Tobacco Use Status: Never Smoking risk assessment performed?: Yes Alcohol Intake: never Drug use: Rarely Substance use type: does not use and former substance user Details: Relapse w/ snorting 'small amount' of heroin 03/20/23 per pt Adopted: No Caregiver/Support person: No Foster care: No Household members: none Housing: apartment Number of Children: 0 Communication Needs: None Education Level: high school Do you need help understanding health information?: Never 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 and animals: Yes (Ally) Pets and animals: dog(s) Sexually active: No Do you think of yourself as: straight/heterosexual Current gender identity: male What is your relationship status?: How often do you talk on the phone with friends or family?: twice per week How often do you get together with friends or relatives?: never Do you belong to any clubs or organized social groups?: no Panel score (0-1 are the most socially isolated patients): 0 What type of physical activity do you participate in: walking Duration: 15-30 minutes/day Frequency: 5-6 times per week Maryam/Church: Protestant Special maryam needs: No Seatbelt use: always Helmet use: Yes Helmet use: always Drive 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 Head: Normocephalic, atraumatic. Subtle erythema and warmth across entirety of left face including forehead, cheek, ear, jaw, and extending down into left lateral neck. Non-tender. Eyes: Left conjuctiva mildly injected Neck: Trachea midline, ?Neck supple. ENT: ?MMM.? No oropharygeal lesions or exudate. TM's clear. Cardiac: ?RRR, no murmurs appreciated Resp: No respiratory distress. CTAB. Abd: ?Soft, non-distended, nontender : ?No suprapubic tenderness. Extremities: ?No deformities.? No peripheral edema. Neurologic: GCS 15. ? Moves all extremities freely against gravity Course Vital Signs Vital signs: Vital Signs Temperature 36.8 C 05/30/23 05:35 Pulse 135 H 05/30/23 05:35 Respiratory Rate 18 05/30/23 05:35 Blood Pressure 124/84 05/30/23 05:35 Pulse Oximetry 98 05/30/23 05:35 Temperature 36.8 C 05/30/23 05:35 Pulse 135 H 05/30/23 05:35 Respiratory Rate 18 05/30/23 05:40 Respiratory Effort Normal 05/30/23 05:40 Blood Pressure 124/84 05/30/23 05:35 Blood Pressure Position Sitting 05/30/23 05:35 Pulse Oximetry 98 05/30/23 05:35 Oxygen Delivery Method Room Air 05/30/23 05:35 Oxygen Flow Rate 0 05/30/23 05:35 Pain Level 0 05/30/23 05:35
[2023-05-30 06:04] LABS: Abs Immature Grans 0.03 10^3/uL (0.0-0.06); Absolute Basophil Count 0.04 10^3/uL (0.0-0.2); Absolute Eosinophil Count 0.26 10^3/uL (0.0-0.7); Absolute Lymphocyte Count 1.72 10^3/uL (1.2-3.4); Absolute Monocyte Count 0.85 10^3/uL (0.1-0.8); Absolute Neutrophil Count 6.45 10^3/uL (1.2-6.7); Basophils % 0.4; Eosinophils % 2.8; HCT 37.5 % (40.0-50.0); HGB 12.9 g/dL (13.5-17.5); Immature Grans % 0.3; Lactate 1.9 mmol/L (0.6-1.4); Lymphocytes % 18.4; MCH 30.7 pg (27.0-33.0); MCHC 34.4 % (32.0-36.0); MCV 89 fL (80-95); MPV 10.3 fL (8.0-11.0); Monocytes % 9.1; Platelet Count 281 10^3/uL (130-400); RDW 12.6 % (11.8-14.1); RDW-SD 40.8 fL; WBC 9.35 10^3/uL (4.4-10.8)
[2023-05-30] MEDS: diphenhydrAMINE 25 MG CAP 50 MG PO (06:16)
[2023-05-30] MEDS: Normal Saline 1,000 ML 1000 ML IV (06:16)
[2023-05-30 06:31] LABS: ALT 63 U/L (16-63); AST 35 U/L (15-37); Albumin 3.3 g/dL (3.4-5.0); Alkaline Phosphatase 122 U/L (46-116); Anion Gap 9.1 mmol/L (3-11); BUN 21 mg/dL (7-18); Bilirubin, Total 0.4 mg/dL (0.2-1.0); CO2 29.9 mmol/L (21.0-32.0); Chloride 99 mmol/L (98-107); Estimated GFR 45.48 (mL/min/1.73m2); Glucose 143 mg/dL (74-106); Potassium 3.4 mmol/L (3.5-5.1); Sodium 138 mmol/L (136-145)
[2023-05-30] MEDS: Cephalexin 500 MG CAP PO (06:50)
[2023-05-30] MEDS: Cephalexin 500 MG CAP, 4 CAPS/BTL PO (06:51)
[2023-05-30] MEDS: Ondansetron 4 MG/2 ML VIAL IVP (07:30)
== END 2023-05-30 07:49 | disposition home or self-care (01) ==
PROVIDERS: Emergency Provider Student in an Organized Health Care Education/Training Program; PCP Family Medicine
DX: L03.211 Cellulitis of face (principal); F41.0 Panic disorder [episodic paroxysmal anxiety]
CPT/HCPCS: 80053; 93005; 96361; 96374; 99284; 83605; 85025; 93010; 99283; J2405

== ENCOUNTER 2023-05-30 21:17 | Emergency (ER) | payer OTHER, SELFPAY ==
[2023-05-30 21:20] VITALS: BP 166/100; PULSE 104; RESP 18; TEMP 36.6; O2SAT 98
--- NOTE | 2023-05-30 22:48 | ED.GENADUL_ITS ---
Discharge Plan Disposition Patient Disposition: Home Discharge Details Clinical Impression: Rash Primary Care Provider: Brendon Vivar ED Provider: Luh Tsai Home Meds and New Rx's Prescriptions: New prednisone 20 mg tablet 40 mg PO DAILY Qty: 10 0RF Continued methadone 10 mg/5 mL solution 100 mg PO QAM magnesium gluconate 27 mg magnesium (500 mg) tablet 27 mg PO BID Qty: 60 3RF clonazepam 1 mg tablet 1 mg PO BID Qty: 56 1RF calcitriol 0.5 mcg capsule 0.5 mcg PO BID Qty: 360 3RF Hold Instructions: Resume on 06/15/22. cyclobenzaprine 10 mg tablet 10 mg PO TID PRN (Reason: muscle spasm) Qty: 30 3RF diclofenac sodium 1 % gel 4 g topical QID Qty: 100 6RF Rx Instructions: apply to single knee, ankle, foot; for foot includes sole/toes/top of foot pantoprazole [Protonix] [address] for susp in packet 40 mg PO DAILY Qty: 30 0RF amitriptyline 50 mg tablet 50 mg PO QHS Qty: 60 1RF calcium carbonate [Tums] 200 mg calcium (500 mg) tablet,chewable 2,000 mg PO BID Hold Instructions: Resume on 05/12/23. Please hold your nightly dose tonight and your a.m. dose tomorrow morning. gabapentin 300 mg capsule 300 mg PO BID cephalexin 500 mg tablet 500 mg PO QID Qty: 24 0RF Discharge Instructions Instructions: Acute Rash (ED) Additional Instructions: Take the prednisone as prescribed May take Benadryl as needed for rash Stop taking the Keflex You have labs that are pending, we will call you regarding your results Please return earlier should he have new or worsening complaints Referrals: Brendon Vivar DO [Primary Care Provider] - Discharge Data Discharge Date/Time-TO BE ENTERED AT DEPARTURE: 05/30/23 22:53 Medical Decision Making This 27-year-old male presents with report of rash and bilateral eye irritation States he feels as though it is worsened and changed location since last evening so he wanted to be reassessed Denies any difficulty swallowing or breathing. Denies any fever or chills. Patient is well in appearance, afebrile, nontoxic, no difficulty swallowing, no airway compromise Has rash on the right side of his face interestingly well-demarcated and macular. Lungs clear to auscultation At this time given the patient's history of chronic kidney disease, pleuritic chest pain, and rash, will order an evaluation for autoimmune or rheumatological etiology of patient's complaints Lupus evaluation pending, patient has an appointment with his doctor on Friday and will discuss whether or not rheumatology referral may be appropriate at this time Placed on prednisone 40 mg for the next 5 days Return precautions reviewed and patient expressed understanding HPI General Date/Time Provider Initiated Documentation: 05/30/23 21:19 . HPI Narrative: This 27-year-old male known to this facility presents with report of rash to face and chest. Denies any chest pain or shortness of breath, also reports some intermittent eye irritation. He was seen for this last evening and placed on Keflex. Denies any difficulty swallowing, chest pain, shortness of breath. Denies any fever or chills. States that the rash has spread from 1 location to another over the course of the past 6 hours. He states that his symptoms from last evening have changed. Related Data Home Medications Medication Instructions Recorded Confirmed methadone 10 mg/5 mL oral solution 100 mg PO QAM 11/16/21 05/30/23 magnesium gluconate 27 mg 27 mg PO BID #60 tabs 11/08/22 05/30/23 magnesium (500 mg) tablet calcium carbonate 200 mg calcium 2,000 mg PO BID 02/02/23 05/30/23 (500 mg) chewable tablet (Tums) gabapentin 300 mg capsule 300 mg PO BID 02/02/23 05/30/23 calcitriol 0.5 mcg capsule 0.5 mcg PO BID #360 caps 04/21/23 05/30/23 clonazepam 1 mg tablet 1 mg PO BID #56 tabs 04/21/23 05/30/23 cyclobenzaprine 10 mg tablet 10 mg PO TID PRN muscle spasm #30 04/21/23 05/30/23 tabs diclofenac sodium 1 % topical gel 4 g topical QID #100 grams 04/21/23 05/30/23 pantoprazole 40 mg granules 40 mg PO DAILY #30 ea 05/19/23 05/30/23 delayed-release for susp in packet (Protonix) amitriptyline 50 mg tablet 50 mg PO QHS #60 tabs 12/11/23 12/15/23 cephalexin 500 mg tablet 500 mg PO QID #24 tabs 05/30/23 prednisone 20 mg tablet 40 mg (2 x 20 mg) PO DAILY #10 tabs 05/30/23 Previous Rx's Medication Instructions Recorded magnesium gluconate 27 mg 27 mg PO BID #60 tabs 11/08/22 magnesium (500 mg) tablet calcitriol 0.5 mcg capsule 0.5 mcg PO BID #360 caps 04/21/23 clonazepam 1 mg tablet 1 mg PO BID #56 tabs 04/21/23 cyclobenzaprine 10 mg tablet 10 mg PO TID PRN muscle spasm #30 04/21/23 tabs diclofenac sodium 1 % topical gel 4 g topical QID #100 grams 04/21/23 pantoprazole 40 mg granules 40 mg PO DAILY #30 ea 05/19/23 delayed-release for susp in packet (Protonix) amitriptyline 50 mg tablet 50 mg PO QHS #60 tabs 05/26/23 cephalexin 500 mg tablet 500 mg PO QID #24 tabs 05/30/23 prednisone 20 mg tablet 40 mg (2 x 20 mg) PO DAILY #10 tabs 05/30/23 Allergies Allergy/AdvReac Type Severity Reaction Status Date / Time codeine Allergy Intermediate Verified 05/30/23 05:43 Penicillins Allergy Skin Rash Verified 05/30/23 05:43 amoxicillin AdvReac Intermediate Nausea Verified 05/30/23 05:43 dextromethorphan AdvReac Intermediate Other (See Unverified 05/30/23 05:43 [From NyQuil] Comment) doxylamine [From NyQuil] AdvReac Intermediate Other (See Unverified 05/30/23 05:43 Comment) pseudoephedrine [From NyQuil] AdvReac Intermediate Other (See Unverified 05/30/23 05:43 Comment) General Stated Complaint: RashLesion ADRIANA: 3 PFSH All Active Problems (Updated 05/30/23 @ 22:48 by ANDREW Arriaga) Rash (Acute) Bronchitis (Acute) Fatigue (Acute) Abdominal discomfort, generalized (Acute) Arthralgia of left shoulder region (Acute) Side effect of drug (Acute) Brachial plexus neuropathy (Acute) Hypercalcemia (Acute) Pharyngitis (Acute) Fall (Acute) Contusion (Acute) Back pain (Acute) Abdominal pain (Acute) Cholelithiases (Acute) 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 ED Cellulitis (Acute) Severe anxiety with panic (Chronic) Family history of coronary arteriosclerosis (Chronic) Father of [place] at 50, mother had [place] at 42 Elevated parathyroid hormone (Acute) Suicidal ideation (Acute) Depression (Chronic) Hypocalcemia (Chronic) Hypomagnesemia (Chronic) Depression (Chronic) Primary hyperparathyroidism (Chronic) Chronic constipation (Chronic) Multiple endocrine neoplasia type I (Chronic) Iatrogenic hypocalcemia (Acute) Abdominal pain (Acute) Common bile duct dilatation (Acute) Intrahepatic bile duct dilation (Acute) Abnormal CT scan, kidney (Acute) Sphincter of Oddi dysfunction (Chronic) Therapeutic opioid induced constipation (Acute) Pulmonary nodule 1 cm or greater in diameter (Chronic) Neck pain on left side (Acute) with shoulder, upper back pain.. torticollis, radiating into left hip/leg History of electrolyte imbalance (Acute) Complex medical condition (Chronic) Serious electrolyte imbalances, with gynecomastia, possible MEN Dx, CKD and anemia with baseline anxiety and Hx PTSD. CKD (chronic kidney disease) stage 2, GFR 60-89 ml/min (Acute) GFR 64-65, with Hx FLORESITA and GFR < 45 Gynecomastia, male (Acute) b/l, per CT (Jul 2022).. Possible 2' Methadone, Clnzpm (?). Surg eval (+)/No further action. Left arm numbness (Acute) Medical History Hypocalcemia Anxiety Depression Hyperlipidemia Family history of multiple endocrine neoplasia, type 1 PTSD (post-traumatic stress disorder) Surgical History H/O parathyroidectomy Family History Mother Anxiety Asthma Depression Sister Anxiety Depression Father Cancer lung & stomach Depression Diabetes Hypertension MEN 1 (multiple endocrine neoplasia) Social History Smoking/Tobacco Use Status: Never Smoking risk assessment performed?: Yes Alcohol Intake: never Drug use: Rarely Substance use type: does not use and former substance user Details: Relapse w/ snorting 'small amount' of heroin 03/20/23 per pt Adopted: No Caregiver/Support person: No Foster care: No Household members: none Housing: apartment Number of Children: 0 Communication Needs: None Education Level: high school Do you need help understanding health information?: Never 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 and animals: Yes (Ally) Pets and animals: dog(s) Sexually active: No Do you think of yourself as: straight/heterosexual Current gender identity: male What is your relationship status?: How often do you talk on the phone with friends or family?: twice per week How often do you get together with friends or relatives?: never Do you belong to any clubs or organized social groups?: no Panel score (0-1 are the most socially isolated patients): 0 What type of physical activity do you participate in: walking Duration: 15-30 minutes/day Frequency: 5-6 times per week Maryam/Church: [employer] Special maryam needs: No Seatbelt use: always Helmet use: Yes Helmet use: always Drive 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 regional 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 Course Vital Signs Vital signs: Vital Signs Temperature 36.6 C 05/30/23 21:20 Pulse 104 H 05/30/23 21:20 Respiratory Rate 18 05/30/23 21:20 Blood Pressure 166/100 H 05/30/23 21:20 Pulse Oximetry 98 05/30/23 21:20 Temperature 36.6 C 05/30/23 21:20 Temperature Source Tympanic 05/30/23 21:20 Pulse 104 H 05/30/23 21:20 Respiratory Rate 18 05/30/23 21:20 Respiratory Effort Normal, Non-Labored 05/30/23 21:23 Blood Pressure 166/100 H 05/30/23 21:20 Blood Pressure Position Sitting 05/30/23 21:20 Pulse Oximetry 98 05/30/23 21:20 Oxygen Delivery Method Room Air 05/30/23 21:20 Oxygen Flow Rate 0 05/30/23 21:20 Pain Level 4 05/30/23 21:20
[2023-06-02 11:11] LABS: C3 Complement 193 mg/dL (81-157); C4 Complement 32 mg/dL (13-39)
[2023-06-02 15:57] LABS: ANA Interpretation Negative (Negative)
[2023-06-04 11:21] LABS: Activated Partial Thrombo Time 28 sec (25 - 37); DRVVT Screen Ratio 0.85 ratio (<1.20); INR 0.9 (0.9-1.1); Prothrombin Time (PT) 10.2 sec (9.4 - 12.5)
== END 2023-05-30 22:53 | disposition home or self-care (01) ==
PROVIDERS: Emergency Provider Physician Assistant; PCP Family Medicine
DX: R21 Rash and other nonspecific skin eruption (principal); E78.5 Hyperlipidemia, unspecified; E21.3 Hyperparathyroidism, unspecified; N18.2 Chronic kidney disease, stage 2 (mild)
CPT/HCPCS: 85390; 85610; 85613; 85730; 99283; 86038; 86160

== ENCOUNTER 2023-06-01 08:53 | Emergency (ER) | payer OTHER, SELFPAY ==
[2023-06-01 09:01] VITALS: BP 149/99; PULSE 111; RESP 22; TEMP 36.5; O2SAT 98
[2023-06-01 09:05] VITALS: RESP 22
--- NOTE | 2023-06-01 09:36 | W.ED.GENAD ---
Discharge Plan Disposition Patient Disposition: Home Discharge Details Clinical Impression: Panic attack Primary Care Provider: Brendon Vivar ED Provider: Kimberli Martinez Home Meds and New Rx's Prescriptions: No Action methadone 10 mg/5 mL solution 100 mg PO QAM magnesium gluconate 27 mg magnesium (500 mg) tablet 27 mg PO BID Qty: 60 3RF clonazepam 1 mg tablet 1 mg PO BID Qty: 56 1RF calcitriol 0.5 mcg capsule 0.5 mcg PO BID Qty: 360 3RF Hold Instructions: Resume on 06/15/22. cyclobenzaprine 10 mg tablet 10 mg PO TID PRN (Reason: muscle spasm) Qty: 30 3RF diclofenac sodium 1 % gel 4 g topical QID Qty: 100 6RF Rx Instructions: apply to single knee, ankle, foot; for foot includes sole/toes/top of foot pantoprazole [Protonix] [address] for susp in packet 40 mg PO DAILY Qty: 30 0RF amitriptyline 50 mg tablet 50 mg PO QHS Qty: 60 1RF calcium carbonate [Tums] 200 mg calcium (500 mg) tablet,chewable 2,000 mg PO BID Hold Instructions: Resume on 05/12/23. Please hold your nightly dose tonight and your a.m. dose tomorrow morning. gabapentin 300 mg capsule 300 mg PO BID cephalexin 500 mg tablet 500 mg PO QID Qty: 24 0RF prednisone 20 mg tablet 40 mg PO DAILY Qty: 10 0RF Discharge Instructions Instructions: Panic Attack (ED) Additional Instructions: Keep your primary care appointment and your therapy appointment. Return to the emergency department for new or worsening symptoms. Medical Decision Making 27yo M with hx PTSD, anxiety, depression, MEN1 s/p parathyroidetomy, presenting for panic attack. This morning felt one coming on, took home klonopin, still feels panicky. Tachycardiac on arrival at his baseline 100-110's based on review of prior visits, vital signs otherwise reassuring. Physical exam reassuring. Most likely panic attack; will not get labs, EKG, or imaging today. Treated with PO valium. On reassessment appears to be sleeping comfortably. Upon waking, reports feeling improved, requesting discharge home. Discharged; discharge instructions and return precautions were reviewed with patient who verbalized understanding. All questions were answered and he is in full agreement with the plan. Medical Records Medical records reviewed: Yes I reviewed the patient's medical records. HPI General Mode of arrival: ambulatory. Date/Time Provider Initiated Documentation: 06/01/23 09:15. Limitations to Documentation: no limitations. Information obtained by: patient. HPI Narrative: 27yo M with hx PTSD, anxiety, depression, MEN1 s/p parathyroidetomy, presenting for panic attack. Has them several times a year, woke this morning and began to feel like one was coming on. Took home klonopin which helped a little but not enough. Feels short of breath, anxious, scared, identical to prior panic attacks. Rash present on prior visits yesterday and the day before is still present, bilateral face and neck. He is otherwise in his usual state of health. Related Data Home Medications Medication Instructions Recorded Confirmed methadone 10 mg/5 mL oral solution 100 mg PO QAM 11/16/21 06/01/23 magnesium gluconate 27 mg 27 mg PO BID #60 tabs 11/08/22 06/01/23 magnesium (500 mg) tablet calcium carbonate 200 mg calcium 2,000 mg PO BID 02/02/23 06/01/23 (500 mg) chewable tablet (Tums) gabapentin 300 mg capsule 300 mg PO BID 02/02/23 06/01/23 calcitriol 0.5 mcg capsule 0.5 mcg PO BID #360 caps 04/21/23 06/01/23 clonazepam 1 mg tablet 1 mg PO BID #56 tabs 04/21/23 06/01/23 cyclobenzaprine 10 mg tablet 10 mg PO TID PRN muscle spasm #30 04/21/23 06/01/23 tabs diclofenac sodium 1 % topical gel 4 g topical QID #100 grams 04/21/23 06/01/23 pantoprazole 40 mg granules 40 mg PO DAILY #30 ea 05/19/23 06/01/23 delayed-release for susp in packet (Protonix) amitriptyline 50 mg tablet 50 mg PO QHS #60 tabs 05/26/23 06/01/23 cephalexin 500 mg tablet 500 mg PO QID #24 tabs 05/30/23 06/01/23 prednisone 20 mg tablet 40 mg (2 x 20 mg) PO DAILY #10 tabs 05/30/23 06/01/23 Previous Rx's Medication Instructions Recorded magnesium gluconate 27 mg 27 mg PO BID #60 tabs 11/08/22 magnesium (500 mg) tablet calcitriol 0.5 mcg capsule 0.5 mcg PO BID #360 caps 04/21/23 clonazepam 1 mg tablet 1 mg PO BID #56 tabs 04/21/23 cyclobenzaprine 10 mg tablet 10 mg PO TID PRN muscle spasm #30 04/21/23 tabs diclofenac sodium 1 % topical gel 4 g topical QID #100 grams 04/21/23 pantoprazole 40 mg granules 40 mg PO DAILY #30 ea 05/19/23 delayed-release for susp in packet (Protonix) amitriptyline 50 mg tablet 50 mg PO QHS #60 tabs 05/26/23 cephalexin 500 mg tablet 500 mg PO QID #24 tabs 05/30/23 prednisone 20 mg tablet 40 mg (2 x 20 mg) PO DAILY #10 tabs 05/30/23 Allergies Allergy/AdvReac Type Severity Reaction Status Date / Time codeine Allergy Intermediate Verified 06/01/23 09:05 Penicillins Allergy Skin Rash Verified 06/01/23 09:05 amoxicillin AdvReac Intermediate Nausea Verified 06/01/23 09:05 dextromethorphan AdvReac Intermediate Other (See Unverified 06/01/23 09:05 [From NyQuil] Comment) doxylamine [From NyQuil] AdvReac Intermediate Other (See Unverified 06/01/23 09:05 Comment) pseudoephedrine [From NyQuil] AdvReac Intermediate Other (See Unverified 06/01/23 09:05 Comment) General Stated Complaint: Anxiety ADRIANA: 4 Review of Systems Narrative: see HPI PFSH All Active Problems (Updated 06/01/23 @ 10:01 by Kimberli Martinez MD) Panic attack (Acute) Rash (Acute) Bronchitis (Acute) Fatigue (Acute) Abdominal discomfort, generalized (Acute) Arthralgia of left shoulder region (Acute) Side effect of drug (Acute) Brachial plexus neuropathy (Acute) Hypercalcemia (Acute) Pharyngitis (Acute) Fall (Acute) Contusion (Acute) Back pain (Acute) Abdominal pain (Acute) Cholelithiases (Acute) 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 ED Cellulitis (Acute) Severe anxiety with panic (Chronic) Family history of coronary arteriosclerosis (Chronic) Father of AK at 50, mother had AK at 42 Elevated parathyroid hormone (Acute) Suicidal ideation (Acute) Depression (Chronic) Hypocalcemia (Chronic) Hypomagnesemia (Chronic) Depression (Chronic) Primary hyperparathyroidism (Chronic) Chronic constipation (Chronic) Multiple endocrine neoplasia type I (Chronic) Iatrogenic hypocalcemia (Acute) Abdominal pain (Acute) Common bile duct dilatation (Acute) Intrahepatic bile duct dilation (Acute) Abnormal CT scan, kidney (Acute) Sphincter of Oddi dysfunction (Chronic) Therapeutic opioid induced constipation (Acute) Pulmonary nodule 1 cm or greater in diameter (Chronic) Neck pain on left side (Acute) with shoulder, upper back pain.. torticollis, radiating into left hip/leg History of electrolyte imbalance (Acute) Complex medical condition (Chronic) Serious electrolyte imbalances, with gynecomastia, possible MEN Dx, CKD and anemia with baseline anxiety and Hx PTSD. CKD (chronic kidney disease) stage 2, GFR 60-89 ml/min (Acute) GFR 64-65, with Hx FLORESITA and GFR < 45 Gynecomastia, male (Acute) b/l, per CT (Jul 2022).. Possible 2' Methadone, Clnzpm (?). Surg eval (+)/No further action. Left arm numbness (Acute) Medical History Hypocalcemia Anxiety Depression Hyperlipidemia Family history of multiple endocrine neoplasia, type 1 PTSD (post-traumatic stress disorder) Surgical History H/O parathyroidectomy Family History Mother Anxiety Asthma Depression Sister Anxiety Depression Father Cancer lung & stomach Depression Diabetes Hypertension MEN 1 (multiple endocrine neoplasia) Social History Smoking/Tobacco Use Status: Never Smoking risk assessment performed?: Yes Alcohol Intake: never Drug use: Rarely Substance use type: does not use and former substance user Details: Relapse w/ snorting 'small amount' of heroin 10/5/23 per pt Adopted: No Caregiver/Support person: No Foster care: No Household members: none Housing: apartment Number of Children: 0 Communication Needs: None Education Level: high school Do you need help understanding health information?: Never 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 and animals: Yes (Ally) Pets and animals: dog(s) Sexually active: No Do you think of yourself as: straight/heterosexual Current gender identity: male What is your relationship status?: How often do you talk on the phone with friends or family?: twice per week How often do you get together with friends or relatives?: never Do you belong to any clubs or organized social groups?: no Panel score (0-1 are the most socially isolated patients): 0 What type of physical activity do you participate in: walking Duration: 15-30 minutes/day Frequency: 5-6 times per week Maryam/Samaritan: Christianity Special maryam needs: No Seatbelt use: always Helmet use: Yes Helmet use: always Drive 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 Cardiac: ?RRR, no murmurs appreciated Resp: No respiratory distress. CTAB. Abd: ?Non-distended Extremities: ?No deformities.? No peripheral edema. Neurologic: GCS 15. ? Moves all extremities freely against gravity Psych: Calm, cooperative.? Well groomed.? Mood not great, affect congruent, tearful..? Speech with soft with normal volume rate, rythym and tone. Linear and goal directed.? Denies SI. Does not appear to be responding to internal stimuli. Course Vital Signs Vital signs: Vital Signs Temperature 36.5 C 06/01/23 09:01 Pulse 111 H 06/01/23 09:01 Respiratory Rate 22 06/01/23 09:01 Blood Pressure 149/99 H 06/01/23 09:01 Pulse Oximetry 98 06/01/23 09:01 Temperature 36.5 C 06/01/23 09:01 Temperature Source Skin 06/01/23 09:01 Pulse 111 H 06/01/23 09:01 Respiratory Rate 22 06/01/23 09:05 Respiratory Effort Normal 06/01/23 09:05 Respiratory Depth Normal 06/01/23 09:05 Respiratory Pattern Normal 06/01/23 09:05 Blood Pressure 149/99 H 06/01/23 09:01 Blood Pressure Position Sitting 06/01/23 09:01 Pulse Oximetry 98 06/01/23 09:01 Oxygen Delivery Method Room Air 06/01/23 09:01 Oxygen Flow Rate 0 06/01/23 09:01 Pain Level 5 06/01/23 09:01
--- OUTSIDE RECORDS SUMMARY | 2023-06-01 09:41 | XMS_ITS | Continuity of Care Document ---
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 Name Role Phone JARRELL HOUSER DO Primary Care Physician Encounter [facility]ME FIN NBR [id number] Date(s): 05/30/23 - 05/30/23 [facility] Ambulatory Clinics [address], [place] [address] Encounter Diagnosis Fatigue(Discharge Diagnosis) - 05/30/23 Viral syndrome(Discharge Diagnosis) - 05/30/23 Discharge Disposition: Home or Self Care Attending Physician: Phuong Andrade APRN Allergies, Adverse Reactions, Alerts Substance Reaction Severity Status codeine Unknown Active amoxicillin Vomiting symptom Moderate Active penicillin Syncope Moderate Active Assessment and Plan Diagnostic Tests Pending * SARS-CoV-2 (Covid-19) AG ([facility]) POCT 05/30/23 Functional Status 05/30/23 Other exposure to Infectious Disease Non e Medications acetaminophen 325 mg oral capsule 325 mg = 1 cap, Oral, every 4 hr, PRN as needed for fever, 0 Refill(s) Start Date: 09/22/22 Status: Ordered Albuterol (Eqv-ProAir HFA) 90 mcg/inh inhalation aerosol 2 puffs, Inhale, every 6 hr, X 30 days, # 6.7 g, 0 Refill(s), 06/02/23 9:14:00 PM [facility], Pharmacy: [id number], 177.8, cm, 05/03/23 20:22:00 EST, Height, [...] mg = 1 tab, Oral, TID, PRN muscle pain Start Date: 04/28/23 Status: Ordered dicyclomine 20 mg oral tablet 20 mg = 1 tab, Oral, 5 times per day, PRN pain, 0 Refill(s) Start Date: 05/22/23 Status: Ordered FLUoxetine 20 mg oral capsule 20 mg = 1 cap, Oral, Daily, 0 Refill(s) Start Date: 05/22/23 Status: Ordered gabapentin 300 mg oral capsule 300 mg = 1 cap, Oral, BID Start Date: 12/13/22 Status: Ordered lidocaine 1.8% topical film 1 patches, Topical, Daily, PRN pain, 0 Refill(s) Start Date: 05/06/23 Status: Ordered [...] # 30 cap, 0 Refill(s), Pharmacy: [id number], 178, cm, 02/28/23 14:26:00 EDT, Height/Length Dosing, 104, kg, 02/28/23 14:26:00 EDT, Weight Dosing Start Date: 02/28/23 Status: Ordered Tums 500 mg oral tablet, chewable 500 mg = 1 tab, Chewed, Daily, 0 Refill(s) Start Date: 09/22/22 Status: [...] reflux disease Confirmed Active Gynecomastia Confirmed Active H/O: pneumonia 1 Confirmed 04/26/23 Active Hypocalcemia Confirmed Active Hypomagnesemia Confirmed Active Iatrogenic hypoglycemia Confirmed Active Intrahepatic bile duct Confirmed Active 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 Nausea Confirmed Active Numbness 2 Confirmed Active Parathyroid 3 Confirmed Active PTSD - Post-traumatic stress disorder Confirmed Active Torticollis Confirmed Active 1treated with antibiotics 2left hand and arm intermittently ?ulna nerve per pt 3elevated Procedures Procedure Date Related Diagnosis Body Site Status Parathyroid Completed Results Laboratory List Name Date SARS-CoV-2 (Covid-19) AG ([facility]) POCT Influenza A/B ([facility]) POCT 05/30/23 Most recent to oldest [Reference Range]: 1 SARS-CoV or CoV-2 (COVID-19) Ag ([facility]) [Negative] Negative (05/30/23 9:33 AM) Employed in healthcare? Unknown *NA* (05/30/23 9:33 AM) Symptomatic as defined by CDC? Unknown *NA* (05/30/23 9:33 AM) Date of onset (Lab) Unknown *NA* (05/30/23 9:33 AM) Hospitalized due to COVID-19? Unknown *NA* (05/30/23 9:33 AM) In ICU? Unknown *NA* (05/30/23 9:33 AM) Group care resident? Unknown *NA* (05/30/23 9:33 AM) status? Unknown *NA* (05/30/23 9:33 AM) Influenza A ([facility]) POCT [Negative] Nega tive (05/30/23 9:19 AM) Influenza B ([facility]) POCT [Negative] Nega tive (05/30/23 9:19 AM) Vital Signs Most recent to oldest [Reference Range]: 1 Temperature Tympanic [36.6-38.1 Deg C] 3 6.7 Deg C (05/30/23 8:56 AM) Peripheral Pulse Rate [60-100 bpm] 122 b pm *HI* (05/30/23 8:56 AM) Respiratory Rate [12-24 br/min] 18 br/mi n (05/30/23 8:56 AM) Blood Pressure [90-140/60-90 mmHg] 136/8 8mmHg (05/30/23 8:56 AM) Mean Arterial Pressure, Cuff [70-110 mmH g] 104 mmHg (05/30/23 8:56 AM) Social History Social History Type Response Tobacco Never tobacco user T obacco Use:. Sex Hospital Discharge Instructions Patient Education 05/30/2023 08:34:34 Viral Illness, Adult Viral Illness, Adult Viruses [...] Medicines to relieve symptoms. These can include vmfl-imy-bicxuzc medicine for pain and fever, medicines for cough or congestion, and medicines to relieve diarrhea. ??? Antiviral medicines. These medicines are available only for certain types of viruses. Some viral illnesses can be prevented with vaccinations. A common example is the flu shot. Follow these instructions at home: Medicines ??? Take fubk-foq-srfbhkn and prescription medicines only as told by [...] and water are not available, use hand special education administrator. ??? Avoid touching your nose, eyes, and [...] provider. Document Revised: 10/16/2020 Document Reviewed: 04/11/2020 [employer] Patient Education ?? 2022 [employer]. Physician Outpatient Note * Phuong Andrade, YASSINE: PERFORM Event Display: Office Clinic Note Physician Authored Date: [id number] LAURA DESIRE DECLAN :1995 Age:27 years Sex:Male Visit Date:05/30/2023 Primary Care Physician: JARRELL HOUSER DO Chief Complaint Pt states left side of face redness, pain Since Friday, yesterday sx came back, plus a SAWYER History of Present Illness Patient is a 27-year-old male who presents today with a chief complaint??facial flushing, fatigue and headache. ??He states that he has had symptoms for approximately 24 hours.??Denies??nausea or vomiting, Review of Systems see hpi Physical Exam Vitals & Measurements T:??36.7?C ??(Tympanic)?? HR:??122??(Peripheral)?? RR:??18?? BP:??136/88?? SpO2:??96%?? Pain Score:??7?? General: Well-appearing, no acute distress, alert and [...] bilaterally. ??No wheezes, rales, rhonchi. Chest: No deformity. ??Nontender, normal inspiration and expiration. Medical Decision Making: Patient was evaluated for upper respiratory symptoms. ??Physical exam is unremarkable, vital signs were obtained and reviewed. ??Rapid Covid testing is negative, rapid??flu is negative. ??Patient will be discharged home with instruction on home care and with viral syndrome, Tylenol or ibuprofen forpain or fever, increase fluid intake, provide rest. ??Follow-up with primary care for lack of improvement. ??Seek urgent and/or emergent care for increased shortness of breath, fever, worsening coughor any other worsening or concerning symptoms. Assessment/Plan 1.??Viral syndrome??B34.9 ?? Fatigue??R53.83 Ordered: SARS-CoV-2 (Covid-19) AG ([facility]) POCT, Swab, Routine, RT - Routine, Collected Y/N, Once, 05/30/23 9:13:00 EST, Fatigue ?? Patient Instructions Your COVID and flu test are negative. ??I do feel that you are probably come down with different??virus. ??I would recommend that you support yourself at home with fluids and rest.?? Follow-up with your primary care for lack of improvement Patient Education Viral Illness, Adult Problem List/Past Medical History Ongoing Abdominal pain Abnormal imaging Anemia Anxiety Anxiety Arthritis Back pain Chest pain CKD stage 2 Constipation Depression Epigastric pain Gastritis GERD - Gastro-esophageal reflux disease Gynecomastia H/O: pneumonia Hypocalcemia Hypomagnesemia Iatrogenic hypoglycemia Intrahepatic bile duct [...] oral tablet, 10 mg= 1 tab, Oral, TID, PRN dicyclomine 20 mg oral tablet, 20 mg= 1 tab, Oral, 5 times per day, PRN FLUoxetine 20 mg oral capsule, 20 mg= 1 cap, Oral, Daily gabapentin 300 mg oral capsule, 300 mg= 1 cap, Oral, BID lidocaine 1.8% topical film, 1 patches, Topical, Daily, PRN Mag-G, 500 mg, Oral, BID methadone 10 mg/5 mL oral solution, 100 mg, Oral, every morning NexIUM 20 mg oral delayed release capsule, 20 mg= 1 cap, Oral, Daily omeprazole 40 mg oral delayed release capsule, 40 mg= 1 cap, Oral, Daily Tums 500 mg oral tablet, chewable, 500 mg= 1 tab, Chewed, Daily Allergies amoxicillin??(Vomiting symptom) penicillin??(Syncope) codeine Social History Alcohol Past Electronic Cigarette/Vaping [...] age: Unknown. Cause of : Lab Results Test Name Test Result Date/Time SARS-CoV or CoV-2 (COVID-19) Ag ([facility]) Negative 05/30/2023 09:33 EST Electronically Signed on 05/30/23 05:43 PM Phuong Andrade APRN Outpatient Summary note * Phuong Andrade APRN: PERFORM Event Display: Ambulatory Patient Summary Authored Date: [id number] DESIRE SANCHEZ :1995 Age:27 years Sex:Male Visit Date:05/30/2023 Primary Care Physician: JARRELL HOUSER DO Ambulatory Visit Instructions We would like to thank you for allowing us to assist you with your healthcare needs. The following includes patient education materials and information regarding your injury/illness. Your Next Steps Instructions From Your Care Team Your COVID and flu test are negative. ??I do feel that you are probably come down with different??virus. ??I would recommend that you support yourself at home with fluids and rest.?? Follow-up with your primary care for lack of improvement Medications What How Much When Why Instructions [...] mg oral tablet, chewable) 1 tab Chewed Every day Unchanged clonazePAM (clonazePAM 1 mg oral tablet) 1 tab Oral (given by mouth) 2 times a day Unchanged cyclobenzaprine (cyclobenzaprine 10 mg oral tablet) 1 tab Oral (given by mouth) 3 times a day as needed for muscle pain Unchanged dicyclomine (dicyclomine 20 mg oral tablet) 1 tab Oral (given by mouth) 5 times per day as needed for pain Unchanged esomeprazole (NexIUM 20 mg oral delayed release capsule) 1 Capsules Oral (given by mouth) Every day Unchanged FLUoxetine (FLUoxetine 20 mg oral capsule) 1 Capsules Oral (given by mouth) Every day Unchanged gabapentin (gabapentin 300 mg oral capsule) 1 Capsules Oral (given by mouth) 2 times a day Unchanged lidocaine topical (lidocaine 1.8% topical film) 1 patch(es) Topical (on the skin) Every day as needed for pain Unchanged magnesium gluconate (Mag-G) 500 Milligrams Oral (given by mouth) 2 times a day Unchanged methadone (methadone 10 mg/ 5 mL oral solution) 100 Milligrams Oral (given by mouth) Every morning Unchanged omeprazole (omeprazole 40 mg oral delayed release capsule) 1 Capsules Oral (given by mouth) Every day Chest pain Shortness of breath Chest pain due to GERD Your Summary Your Diagnosis Viral syndrome Fatigue Problems Ongoing - Any problem that you are currently receiving treatment for. Abdominal pain Abnormal imaging Anemia Anxiety Anxiety Arthritis Back pain Chest pain CKD stage 2 Constipation Depression Epigastric pain Gastritis GERD - Gastro-esophageal reflux disease Gynecomastia H/O: pneumonia Hypocalcemia Hypomagnesemia Iatrogenic hypoglycemia Intrahepatic bile duct Multiple endocrine neoplasia syndrome type 1 Nausea Numbness Parathyroid PTSD - Post-traumatic stress disorder Torticollis Historical - Any problem that you are no longer receiving treatment for. Cellulitis History of opioid abuse Outstanding Tests Influenza A/B ([facility]) POCT SARS-CoV-2 (Covid-19) AG ([facility]) POCT Tests Performed Test Name Test Result Date/Time SARS-CoV or CoV-2 (COVID-19) Ag ([facility]) Negative 05/30/2023 09:33 EST Your Care Team Attending Physician - Phuong Andrade APRN Primary Care Physician - JARRELL HOUSER DO Discharge Vitals Temperature??(Tympanic) 98.1 ??F (36.7 ??C) Heart Rate??(Peripheral) 122 Respiratory Rate?? 18 Blood Pressure?? 136/88?? Allergies amoxicillin??(Vomiting symptom) penicillin??(Syncope) codeine Education Materials Viral Illness, Adult Viruses are [...] Medicines to relieve symptoms. These can include ilnl-juk-gigbppo medicine for pain and fever, medicines for cough or congestion, and medicines to relieve diarrhea. ? Antiviral medicines. These medicines are available only for certain types of viruses. Some viral illnesses can be prevented with vaccinations. A common example is the flu shot. Follow these instructions at home: Medicines ? Take vzkz-skw-niijmgj and prescription medicines only as told by [...] and water are not available, use hand special education administrator. ? Avoid touching your nose, eyes, and [...] provider. Document Revised: 10/16/2020 Document Reviewed: 04/11/2020 [employer] Patient Education ?? 2022 [employer] Electronically Signed on: 05/30/2023 09:35 ESTSigned by:STEPHEN Patient Care team information Care Team Personnel Name: JARRELL HOUSER DO Position: No Access Member Role: Primary Care Physician Address: Address: [id number] [place] [address] Care Team Related Persons Name: ARY SANCHEZ Name: MILLER SANCHEZ
--- OUTSIDE RECORDS SUMMARY | 2023-06-01 09:42 | XMS_ITS | Continuity of Care Document ---
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 Name Role Phone JARRLEL HOUSER DO Primary Care Physician Encounter [id number] FIN [id number] [id number] Date(s): 05/30/23 - 05/30/23 [facility] [address] [place] [address]- [place] Encounter Diagnosis Acute URI(Discharge Diagnosis) - 05/30/23 Discharge Disposition: Home or Self Care Attending Physician: Bryan Sheldon DO Admitting Physician: Bryan Sheldon DO Allergies, Adverse Reactions, Alerts Substance Reaction Severity Status codeine Unknown Active amoxicillin Vomiting symptom Moderate Active penicillin Syncope Moderate Active Medications acetaminophen 325 mg oral capsule 325 mg = 1 cap, Oral, every 4 hr, PRN as needed for fever, 0 Refill(s) Start Date: 09/22/22 Status: Ordered Albuterol (Eqv-ProAir HFA) 90 mcg/inh inhalation aerosol 2 puffs, Inhale, every 6 hr, X 30 days, # 6.7 g, 0 Refill(s), 06/02/23 9:14:00 PM [facility], Pharmacy: [id number], 177.8, cm, 05/03/23 20:22:00 EST, Height, [...] # 30 cap, 0 Refill(s), Pharmacy: [id number], 178, cm, 02/28/23 14:26:00 EDT, Height/Length [...] Completed Results Laboratory List Name Date SARS-CoV-2 (COVID-19)/Flu/RSV (GeneXpert ) 05/30/23 Automated Diff 05/30/23 CBC w/ Diff 05/30/23 Comprehensive Metabolic Panel (CMP) 05/16 11/05 Most recent to oldest [Reference Range]: 1 WBC [4.8-10.8 K/mcL] 7.7 K/mcL (05/30/23 11:31 AM) RBC [4.70-6.10 Million/mcL] 4.03 Million /mcL *LOW* (05/30/23 11:31 AM) Neutro Auto [42.2-75.2 %] 69.3 % (05/30/23 11:31 AM) Lymph Auto [20.5-51.1 %] 19.4 % *LOW* (05/30/23 11:31 AM) Ventura Auto [1.7-9.3 %] 8.8 % (05/30/23 11:31 AM) Basophil Auto [0.0-0.8 %] 0.5 % (05/30/23 11:31 AM) BUN [7-25 mg/dL] 17 mg/dL (05/30/23 11:31 AM) Glucose Level [70-109 mg/dL] 104 mg/dL (05/30/23 11:31 AM) Potassium Level [3.5-5.1 mmol/L] 3.9 mmo l/L (05/30/23 11:31 AM) Baso Absolute [0.0-0.2 K/mcL] 0.0 K/mcL (05/30/23 11:31 AM) MCV [80.0-94.0 fL] 90.9 fL (05/30/23 11:31 AM) AST [13-39 IntlUnit/L] 29 IntlUnit/L (05/30/23 11:31 AM) ALT [7-52 IntlUnit/L] 43 IntlUnit/L (05/30/23 11:31 AM) MCHC [32.0-37.0 g/dL] 34.4 g/dL (05/30/23 11:31 AM) Osmolality [275-295 mOsm/kg] 279 mOsm/kg (05/30/23 11:31 AM) Sodium Level [136-145 mmol/L] 139 mmol/L (05/30/23 11:31 AM) Lymph Absolute [1.2-3.4 K/mcL] 1.5 K/mcL (05/30/2331 AM) Hct [42.0-52.0 %] 36.6 % *LOW* (05/30/23 AM) Calcium Level [8.6-10.3 mg/dL] 9.7 mg/dL (05/30/23 11 AM) Ventura Absolute [0.1-0.6 K/mcL] 0.7 K/mcL *HI* (05/30/23 11 AM) Albumin Level [3.5-5.7 g/dL] 4.0 g/dL (05/30/2331 AM) Protein Total [6.4-8.9 g/dL] 7.9 g/dL (05/30/23 11:31 AM) MCH [27.0-31.0 pg] 31.2 pg *HI* (05/30/23 11:31 AM) Neutro Absolute [1.4-6.5 K/mcL] 5.3 K/mc L (05/30/23 11:31 AM) Bilirubin Total [0.3-1.0 mg/dL] 0.3 mg/d L (05/30/23 11:31 AM) Hgb [14.0-18.0 g/dL] 12.6 g/dL *LOW* (05/30/23 11:31 AM) Alk Phos [34-104 IntlUnit/L] 106 IntlUni t/L *HI* (05/30/23 11:31 AM) MPV [7.4-10.4 fL] 9.1 fL (05/30/23 11:31 AM) Platelets [130-400 K/mcL] 324 K/mcL (05/30/23 11:31 AM) CO2 [21-31 mmol/L] 31 mmol/L (05/30/23 11:31 AM) Eos Absolute [0.0-0.2 K/mcL] 0.2 K/mcL (05/30/23 11:31 AM) Chloride Level [98-107 mmol/L] 101 mmol/ L (05/30/23 11:31 AM) RDW-CV [11.5-14.5 %] 13.9 % (05/30/23 11:31 AM) A/G Ratio [1.0-2.5 g/dL] 1.0 g/dL (05/30/23 11:31 AM) BUN/Creat Ratio [8.0-20.0] 10.6 (05/30/23 11:31 AM) Globulin [2.3-3.5 g/dL] 3.9 g/dL *HI* (05/30/23 11:31 AM) Creatinine Level [0.70-1.30 mg/dL] 1.60 mg/dL *HI* (05/30/23 11:31 AM) SARS-CoV-2(Covid19)PCR(GXpert COVFLURSV) [Negative] Negative (05/30/23 12:20 PM) Flu A (GXpert COVFLURSV) [Negative] Nega tive (05/30/23 12:20 PM) RSV (GXpert COVFLURSV) [Negative] Negati ve (05/30/23 12:20 PM) Flu B (GXpert COVFLURSV) [Negative] Nega tive (05/30/23 12:20 PM) Anion Gap [3.0-12.0] 7.0 (05/30/23 11:31 AM) Eos, Auto [0.00-3.00 %] 2.00 % (05/30/23 11:31 AM) eGFR CKD-EPI [>=60 mL/min/1.73 m2] 59 mL /min/1.73 m2 *LOW* (05/30/23 11:31 AM) Radiology Reports * Exam Date Time Procedure Performing Provider Status 05/30/23 12:[address] Angio Chest David Tere M; Auth (Verified) Notes: (CT Angio Chest) Reason For Exam: Hemoptysis+ dyspnea x [address] Angio Chest EXAM DESCRIPTION: CT Angio Chest 05/30/2023 INDICATION: HEMOPTYSIS+ DYSPNEA X 2 DAYS TECHNIQUE: All CT scans at this facility [...] cc of Isovue 370 contrast was utilized COMPARISON: CT angiography chest examination from 05/11/2023 FINDINGS: Normal opacification of the right ventricular outflow tract, main pulmonary arteries and segmental pulmonary arteries with no evidence of pulmonary embolism. No evidence of thoracic aortic dissection. Clear lungs with no focal consolidation or pulmonary mass. No emphysematous changes. No central endobronchial filling defect identified No pleural effusion or pneumothorax No mediastinal, hilar or axillary adenopathy. No pericardial effusion. No mass or adenopathy in the visualized upper abdomen. No suspicious regional osseous lesions. IMPRESSION: No evidence of pulmonary embolism Clear lungs with no focal consolidation or pulmonary mass. JOB #: [id number] Final Signed by: John Burciaga MD Signed (Electronic Signature): 05/30/2023 12:59 pm Vital Signs Most recent to oldest [Reference Range]: 1 2 3 Temperature Oral [35.8-37.3 Deg C] 36.9 Deg C (05/30/23 11:16 AM) Peripheral Pulse Rate [60-100 bpm] 85 bpm (05/30/23 1:30 PM) 92 bpm (05/30/23 1:00 PM) 92 bpm (05/30/23 12:30 PM) Heart Rate Monitored [60-100 bpm] 81 bpm (05/30/23 1:30 PM) 91 bpm (05/30/23 1:00 PM) 92 bpm (05/30/23 12:30 PM) Respiratory Rate [12-24 br/min] 12 br/min (05/30/23 1:30 PM) 16 br/min (05/30/23 1:00 PM) 12 br/min (05/30/23 12:30 PM) Blood Pressure [90-140/60-90 mmHg] 112/77mmHg (05/30/23 1:00 PM) 123/85mmHg (05/30/23 12:30 PM) 95/76mmHg (05/30/23 12:00 PM) Mean Arterial Pressure, Cuff [70-110 mmHg] 89 mmHg (05/30/23 1:00 PM) 98 mmHg (05/30/23 12:30 PM) 82 mmHg (05/30/23 12:00 PM) Mean Arterial Pressure Cuff 85 mmHg (05/30/23 1:00 PM) 98 mmHg (05/30/23 12:30 PM) 83 mmHg (05/30/23 12:00 PM) Weight 117.9 kg (05/30/23 11:16 AM) Weight Dosing 117.900 kg (05/30/23 11:16 AM) Height 178 cm (05/30/23 11:16 AM) Body Mass Index 37.21 kg/m2 (05/30/23 11:16 AM) Social History Social History Type Response Tobacco Never tobacco user T obacco Use:. Sex Hospital Discharge Instructions Patient Education 05/30/2023 12:14:30 Cough, Adult Cough, Adult Coughing is a [...] these instructions at home: Medicines ??? Take [id number]-[id number] and prescription medicines only as told by [...] a condition that needs treatment. ??? Take yehm-jnl-ozhbpyf and prescription medicines only as told by [...] Reviewed: 06/21/2019 Elsevier Patient Education ?? 2022 [employer]. Follow Up Care 05/30/2023 11:16:16 With:Tylenol/Motrin for Pain/Fever Relief Address:Unknown When:1 month With:JARRELL HOUSER DO Address: [facility] [address] [place] [id number]- When:1 month Physician Emergency department Note * ANDREW Iraheta: PERFORM Event Display: ED Note Physician Authored Date: [id number] DESIRE SANCHEZ :1995 Age:27 years Sex:Male Visit Date:05/30/2023 Primary Care Physician: JARRELL HOUSER DO Basic Information Time Seen: ANDREW Iraheta / 05/30/2023 11:17 Chief Complaint Pt states coughing for 3 days, noticed today coughing up spots of brownish/ red mucous. Headache this AM as well, took Tylenol without relief. Afebrile on admission History Of Present Illness: Patient is a 27-year-old male??well-known to the emergency department here for concern of productive cough and??hemoptysis.?? States he overall feels more fatigued??than normal. ??Denies any??chest pain or dyspnea. ??No known fevers at home. ??States that he has been staying well-hydrated. Review of Systems: See HPI Physical Exam Vitals & Measurements T:??36.9?C ??(Oral)?? HR:??85??(Peripheral)?? HR:??81??(Monitored)?? RR:??12?? BP:??112/77?? SpO2:??94%?? HT:??178??cm?? WT:??117.9??kg?? BMI:??37.21?? O2 Therapy:??Room air?? General: Patient is alert [...] pleasant 27-year-old male here for concern of hemoptysis. ??Vitals obtained and reviewed. ??He is initially tachycardic. ??Oxygen saturation ranges from 90 to 97% on room air. ??Afebrile. ?? He is in no acute distress however he does appear??ill. concern for PE as patient is tachycardic??with history of??hemoptysis. ??He also notes??unilateral leg pain and swelling??last week but He was seen for this leg pain??in the emergency department twice and had 2 ultrasounds negative for DVTs. ??However with??his current symptoms and this history??I do feel a CTA is??appropriate today. ??Fortunately??no acute findings were discovered on this imaging. ??Otherwise labs unremarkable trending milliliter the previous visits. Patient states symptoms did improve after fluids and Tylenol.?? Tachycardia also resolved after fluids.?? Viral panel negative. Likely this is from a viral URI discussed this with patient. ??Reassurance provided. Procedure No Qualifying Data Assessment/Plan 1.??Acute URI??J06.9 Patient provided to patient.?? Symptoms improved after??fluids.?? Will continue to stay hydrated and alternate Tylenol and ibuprofen as needed.?? Return precautions discussed with patient. Ordered: Discharge Patient, 05/30/23 13:23:00 EST, Home Independently ?? Patient Education Cough, Adult Follow Up With When Contact Information Tylenol/Motrin for Pain/Fever Relief Within 1 month Additional Instructions: CORRINA AVILA, JARRELL MEYER Within 1 month [facility] [address] [place] [phone]- Additional Instructions: Medication Reconciliation Unchanged acetaminophen (acetaminophen [...] 500 mg oral tablet, chewable)1 tab Chewed every day. ?? clonazePAM (clonazePAM 1 mg oral tablet)1 tab Oral (given by mouth) 2 times a day. ?? cyclobenzaprine (cyclobenzaprine 10 mg oral tablet)1 tab Oral (given by mouth) 3 times a day as needed muscle pain. ?? dicyclomine (dicyclomine 20 mg oral tablet)1 tab Oral (given by mouth) 5 times per day as needed pain. ?? esomeprazole (NexIUM 20 mg oral delayed release capsule)1 Capsules Oral (given by mouth) every day. ?? FLUoxetine (FLUoxetine 20 mg oral capsule)1 Capsules Oral (given by mouth) every day. ?? gabapentin (gabapentin 300 mg oral capsule)1 Capsules Oral (given by mouth) 2 times a day. ?? lidocaine topical (lidocaine 1.8% topical film)1 patch(es) Topical (on the skin) every day as needed pain. ?? magnesium gluconate (Mag-G)500 Milligrams Oral (given [...] Hydration Bolus acetaminophen, 1000 mg, IV Piggyback Allergies amoxicillin??(Vomiting symptom) penicillin??(Syncope) codeine Social History [...] of : Diagnostic Results CT Angio Chest 05/30/2023 13:[address] Angio Chest ?? 05/30/23 12:59:24 EXAM DESCRIPTION: CT Angio Chest ?? 05/30/2023 ?? INDICATION: HEMOPTYSIS+ DYSPNEA X 2 DAYS ?? TECHNIQUE: All CT scans at this [...] of Isovue 370 contrast was utilized ?? COMPARISON: CT angiography chest examination from 05/11/2023 ?? FINDINGS: Normal opacification of the right ventricular outflow tract, main pulmonary arteries and segmental pulmonary arteries with no evidence of pulmonary embolism. No evidence of thoracic aortic dissection. ?? Clear lungs with no focal consolidation or pulmonary mass. No emphysematous changes. No central endobronchial filling defect identified ?? No pleural effusion or pneumothorax ?? No mediastinal, hilar or axillary adenopathy. No pericardial effusion. ?? No mass or adenopathy in the visualized upper abdomen. ?? No suspicious regional osseous lesions. ?? IMPRESSION: No evidence of pulmonary embolism ?? Clear lungs with no focal consolidation or pulmonary mass. ? JOB #: [id number] Electronically Signed By: ?? Signed By: John Burciaga MD Lab Results CBC and Differential?? LATEST RESULTS?? HISTORICAL RESULTS?? WBC?? 05/30/23 11:31?? 7.7?? 05/08/23?? 7.3?? RBC?? 05/30/23 11:31?? 4.03 ??Low?? 05/08/23?? 3.76 ??Low?? Hgb?? 05/30/23 11:31?? 12.6 ??Low?? 05/08/23?? 11.8 ??Low?? Hct?? 05/30/23 11:31?? 36.6 ??Low?? 05/08/23?? 34.7 ??Low?? MCV?? 05/30/23 11:31?? 90.9?? 05/08/23?? 92.3?? MCH?? 05/30/23 11:31?? 31.2 ??High?? 05/08/23?? 31.4 ??High?? MCHC?? 05/30/23 11:31?? 34.4?? 05/08/23?? 34.0?? RDW-CV?? 05/30/23 11:31?? 13.9?? 05/08/23?? 12.3?? Platelets?? 05/30/23 11:31?? 324?? 05/08/23?? 248?? MPV?? 05/30/23 11:31?? 9.1?? 05/08/23?? 11.0 ??High?? Neutro Auto?? 05/30/23 11:31?? 69.3?? 05/08/23?? 61.4?? Lymph Auto?? 05/30/23 11:31?? 19.4 ??Low?? 05/08/23?? 23.7?? Ventura Auto?? 05/30/23 11:31?? 8.8?? 05/08/23?? 10.2 ??High?? Eos, Auto?? 05/30/23 11:31?? 2.00?? 05/08/23?? 3.70 ??High?? Basophil Auto?? 05/30/23 11:31?? 0.5?? 05/08/23?? 0.7?? Neutro Absolute?? 05/30/23 11:31?? 5.3?? 05/08/23?? 4.5?? Lymph Absolute?? 05/30/23 11:31?? 1.5?? 05/08/23?? 1.7?? Ventura Absolute?? 05/30/23 11:31?? 0.7 ??High?? 05/08/23?? 0.8 ??High?? Eos Absolute?? 05/30/23 11:31?? 0.2?? 05/08/23?? 0.3 ??High?? Baso Absolute?? 05/30/23 11:31?? 0.0?? 05/08/23?? 0.0? Routine Chemistry?? LATEST RESULTS?? HISTORICAL RESULTS?? Sodium Level?? 05/30/23 11:31?? 139?? 05/08/23?? 138?? Potassium Level?? 05/30/23 11:31?? 3.9?? 05/08/23?? 4.1?? Chloride Level?? 05/30/23 11:31?? 101?? 05/08/23?? 100?? CO2?? 05/30/23 11:31?? 31?? 05/08/23?? 31?? Alk Phos?? 05/30/23 11:31?? 106 ??High?? 05/08/23?? 78?? AST?? 05/30/23 11:31?? 29?? 05/08/23?? 25?? ALT?? 05/30/23 11:31?? 43?? 05/08/23?? 28?? BUN?? 05/30/23 11:31?? 17?? 05/08/23?? 19?? Glucose Level?? 05/30/23 11:31?? 104?? 05/08/23?? 99?? Creatinine Level?? 05/30/23 11:31?? 1.60 ??High?? 05/08/23?? 1.65 ??High?? BUN/Creat Ratio?? 05/30/23 11:31?? 10.6?? 05/08/23?? 11.5?? eGFR CKD-EPI?? 05/30/23 11:31?? 59 ??Low?? 05/08/23?? 57 ??Low?? Calcium Level?? 05/30/23 11:31?? 9.7?? 05/08/23?? 10.0?? Protein Total?? 05/30/23 11:31?? 7.9?? 05/08/23?? 7.1?? Albumin Level?? 05/30/23 11:31?? 4.0?? 05/08/23?? 3.5?? Globulin?? 05/30/23 11:31?? 3.9 ??High?? 05/08/23?? 3.6 ??High?? A/G Ratio?? 05/30/23 11:31?? 1.0?? 05/08/23?? 1.0?? Bilirubin Total?? 05/30/23 11:31?? 0.3?? 05/08/23?? 0.4?? Anion Gap?? 05/30/23 11:31?? 7.0?? 05/08/23?? 7.0?? Osmolality?? 05/30/23 11:31?? 279?? 05/08/23?? 278? Infectious Disease?? LATEST RESULTS?? HISTORICAL RESULTS?? SARS-CoV-2(Covid19)PCR(GXpert COVFLURSV)?? 05/30/23 12:20?? Negative?? 06/22/22?? Negative?? Flu A (GXpert COVFLURSV)?? 05/30/23 12:20?? Negative?? 06/22/22?? Negative?? Flu B (GXpert COVFLURSV)?? 05/30/23 12:20?? Negative?? 06/22/22?? Negative?? RSV (GXpert COVFLURSV)?? 05/30/23 12:20?? Negative?? 06/22/22?? Negative? Electronically Signed on 05/30/23 02:09 PM ANDREW Iraheta Emergency department Discharge instructions * ANDREW Iraheta: PERFORM Event Display: ED Discharge Information Authored Date: [id number] DESIRE SANCHEZ :1995 Age:27 years Sex:Male Visit Date:05/30/2023 Primary Care Physician: JARRELL HOUSER DO Discharge Instructions We would like to thank you for allowing us to assist you with your healthcare needs. The following includes patient education materials and information regarding your injury/illness. Diagnosis from Today's Visit Acute URI Discharge Vitals Temperature??(Oral) 98.4 ??F (36.9 ??C) Heart Rate??(Peripheral) 92 Heart Rate??(Monitored) 91 Respiratory Rate?? 16 Blood Pressure?? 112/77?? Height?? 70.08 in (178 cm) Weight?? 259.97 lb (117.9 kg) BMI?? 37.21 Allergies amoxicillin??(Vomiting symptom) penicillin??(Syncope) codeine What to Do Next Instructions from Your Care Team You were evaluated here today for concern??of??a congested cough and coughing up blood over the past 2 days. ??Fortunately workup was very reassuring??and there is no evidence of a??pneumonia or??PE on the CT of your chest. ??Your vitals improved after fluids and Tylenol.?? Your viral panel is still pending and I will call you??with these results.?? Please stay well rested and hydrated. ??Can continue to alternate Tylenol and ibuprofen??as needed for any??fevers??or myalgias. ??Return with any worsening of symptoms. You Need to Schedule the Following Appointments Follow Up with??Tylenol/Motrin for Pain/Fever Relief When:??Within 1 month Follow Up with??CORRINA AVILA, JARRELL MEYER When:??Within 1 month Where: [facility] [address] [place] [address] [phone]- You were treated today on an emergency [...] these instructions at home: Medicines ? Take zjxc-epn-amdbnft and prescription medicines only as told by [...] a condition that needs treatment. ? Take flxo-tuj-kzpdauk and prescription medicines only as told by [...] provider. Document Revised: 06/21/2019 Document Reviewed: 06/21/2019 [employer] Patient Education ?? 2022 [employer] Tests Performed Radiology CT Angio Chest 05/30/2023 13:01 EST Medications and Immunizations Administered Given Sodium Chloride 0.9%, 1000 mL, Hydration Bolus acetaminophen, 1000 mg, IV Piggyback Lab Test Name Test Result Date/Time WBC 7.7 K/mcL 05/30/2023 11:31 EST RBC 4.03 Million/mcL 05/30/2023 11:31 EST Hgb 12.6 g/dL 05/30/2023 11:31 EST Hct 36.6 % 05/30/2023 11:31 EST MCV 90.9 fL 05/30/2023 11:31 EST MCH 31.2 pg 05/30/2023 11:31 EST MCHC 34.4 g/dL 05/30/2023 11:31 EST RDW-CV 13.9 % 05/30/2023 11:31 EST Platelets 324 K/mcL 05/30/2023 11:31 EST MPV 9.1 fL 05/30/2023 11:31 EST Neutro Auto 69.3 % 05/30/2023 11:31 EST Lymph Auto 19.4 % 05/30/2023 11:31 EST Ventura Auto 8.8 % 05/30/2023 11:31 EST Eos, Auto 2.00 % 05/30/2023 11:31 EST Basophil Auto 0.5 % 05/30/2023 11:31 EST Neutro Absolute 5.3 K/mcL 05/30/2023 11:31 EST Lymph Absolute 1.5 K/mcL 05/30/2023 11:31 EST Ventura Absolute 0.7 K/mcL 05/30/2023 11:31 EST Eos Absolute 0.2 K/mcL 05/30/2023 11:31 EST Baso Absolute 0.0 K/mcL 05/30/2023 11:31 EST Sodium Level 139 mmol/L 05/30/2023 11:31 EST Potassium Level 3.9 mmol/L 05/30/2023 11:31 EST Chloride Level 101 mmol/L 05/30/2023 11:31 EST CO2 31 mmol/L 05/30/2023 11:31 EST Alk Phos 106 IntlUnit/L 05/30/2023 11:31 EST AST 29 IntlUnit/L 05/30/2023 11:31 EST ALT 43 IntlUnit/L 05/30/2023 11:31 EST BUN 17 mg/dL 05/30/2023 11:31 EST Glucose Level 104 mg/dL 05/30/2023 11:31 EST Creatinine Level 1.60 mg/dL 05/30/2023 11:31 EST BUN/Creat Ratio 10.6 05/30/2023 11:31 EST eGFR CKD-EPI 59 mL/min/1.73 m2 05/30/2023 11:31 EST Calcium Level 9.7 mg/dL 05/30/2023 11:31 EST Protein Total 7.9 g/dL 05/30/2023 11:31 EST Albumin Level 4.0 g/dL 05/30/2023 11:31 EST Globulin 3.9 g/dL 05/30/2023 11:31 EST A/G Ratio 1.0 g/dL 05/30/2023 11:31 EST Bilirubin Total 0.3 mg/dL 05/30/2023 11:31 EST Anion Gap 7.0 05/30/2023 11:31 EST Osmolality 279 mOsm/kg 05/30/2023 11:31 EST SARS-CoV-2(Covid19)PCR(GXpert COVFLURSV) Neg-GeneXPert 05/30/2023 12:20 EST Flu A (GXpert COVFLURSV) Neg-GeneXPert 05/30/2023 12:20 EST Flu B (GXpert COVFLURSV) Neg-GeneXPert 05/30/2023 12:20 EST RSV (GXpert COVFLURSV) Neg-GeneXPert 05/30/2023 12:20 EST Patient/Slider Assembler Signature Patient Name:LAURA DESIREJORGE MANRIQUEZ I have received this information and my questions have been answered. Patient/Slider Assembler Name: Patient/Slider Assembler Signature: Relationship to Patient: Witness Name/Signature: Date: Electronically Signed on: 05/30/2023 13:23 ESTSigned by:CRISTINA Patient Care team information Care Team Personnel Name: JARRELL HOUSER DO Position: No Access Member Role: Primary Care Physician Address: Address: [address] [id number] Name: Jodi Patino Position: Nurse Member Role: ED Nurse Name: ANDREW Iraheta Position: Physician Member Role: Physician Address: Address: [address] [place] [id number] Care Team Related Persons Name: ARY SANCHEZ Name: MILLER SANCHEZ
--- OUTSIDE RECORDS SUMMARY | 2023-06-01 09:42 | XMS_ITS | Continuity of Care Document ---
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 Role Phone JARRELL HOUSER DO Primary Care Physician Encounter LTTL_MD FIN NBR [phone] Date(s): 05/25/23 - 05/25/23 [facility] [address], [place] [address] Encounter Diagnosis Superficial thrombophlebitis of right leg(Discharge Diagnosis) - 05/25/23 Phlebitis and thrombophlebitis of superficial vessels of right lower extremity (Final) - Discharge Disposition: Home or Self Care Attending Physician: Mp Knott MD Admitting Physician: Mp Knott MD Allergies, Adverse Reactions, Alerts Substance Reaction Severity Status codeine Unknown Active amoxicillin Vomiting symptom Moderate Active Assessment and Plan Future Appointments Medications acetaminophen 325 mg oral capsule 325 mg = 1 cap, Oral, every 4 hr, PRN as needed for fever, 0 Refill(s) Start Date: 09/22/22 Status: Ordered Albuterol (Eqv-ProAir HFA) 90 mcg/inh inhalation aerosol 2 puffs, Inhale, every 6 hr, X 30 days, # 6.7 g, 0 Refill(s), 06/02/23 9:14:00 PM [facility], Pharmacy: [facility], 177.8, cm, 05/03/23 20:22:00 EST, Height, [...] # 30 cap, 0 Refill(s), Pharmacy: [facility], 178, cm, 02/28/23 14:26:00 EDT, Height/Length Dosing, 104, kg, 02/28/23 14:26:00 EDT, Weight Dosing Start Date: 02/28/23 Status: Ordered Tums 500 mg oral tablet, chewable 500 mg = 1 tab, Chewed, Daily, 0 Refill(s) Start Date: 09/22/22 Status: Ordered Mental Status 05/25/23 Eye Opening Response Arthur Spontaneous ly Best Verbal Response Arthur Oriented Best Motor Response [place] Obeys comman ds Arthur Coma Score 15 [...] [36-38 Deg C ] 36.9 Deg C (05/25/23 8:09 AM) Peripheral Pulse Rate [60-100 bpm] 98 bp m (05/25/23 8:09 AM) Respiratory Rate [12-24 br/min] 16 br/mi n (05/25/23 8:09 AM) Blood Pressure [90-140/60-90 mmHg] 115/7 8mmHg (05/25/23 8:09 AM) Mean Arterial Pressure, Cuff [70-110 mmH g] 90 mmHg (05/25/23 8:09 AM) Weight 113 kg (05/25/23 8:09 AM) Weight Dosing 113.000 kg (05/25/23 8:09 AM) Height 177 cm (05/25/23 8:09 AM) Body Mass Index 36.07 kg/m2 (05/25/23 8:09 AM) Social History Social History Type Response Tobacco Never tobacco user T obacco Use:. Sex Hospital Discharge Instructions Patient Education 05/25/2023 07:57:59 Phlebitis Phlebitis Phlebitis is soreness and swelling of a vein. This can occur in the arms, legs, or torso, as well as deeper inside the body. Phlebitis is usually not serious when it occurs close to the surface of the body. However, it can cause serious problems when it occurs deeper inside the body. What are the causes? Phlebitis can be caused by: ??? Having a needle, IV, or long, thin tube (catheter) put in the vein. ??? Getting certain medicines or solutions through an IV. Some medicines or solutions, such as antibiotics and cancer medicines, can irritate the vein. ??? Having an IV for a long period of time or in a part of the body that moves a lot. ??? A blood clot. ??? Infection of the vein. ??? Surgery on a vein. What increases the risk? The following factors may make you more likely to develop this condition: ??? Being overweight or obese. ??? . ??? Cancer. ??? Reduced or slowing of blood flow through your veins. This can be caused by: ??? Bed rest over a long period of time. ??? Long-distance travel. ??? Injury. ??? Surgery. ??? Congestive heart failure. ??? Inactivity. ??? Smoking. ??? Taking control pills or hormone replacement therapy. ??? Varicose veins. ??? Inflammatory diseases or blood disorders that increase clotting. ??? Taking drugs through the vein. ??? Having a history of blood clots. What are the signs or symptoms? Symptoms of this condition include: ??? A red, tender, swollen, and painful area on your skin. Usually, the area is long and narrow, and it may spread. ??? The affected area feeling warm to the touch. ??? Firmness along the center of the affected area. ??? Low fever. How is this diagnosed? This condition is diagnosed based on: ??? Your symptoms. ??? A physical exam. ??? Your medical history, including your family history. Tests may be done to rule out other conditions, such as blood clots, especially if you have a history of blood clots or are at higher risk of developing blood clots. These may include: ??? Blood tests. ??? Ultrasound exam. ??? Genetic tests. ??? Biopsy. This is when a tissue sample is removed from the body and looked at under a microscope.This is rare. How is this treated? Treatment depends on the severity of the condition as well as the location of the inflammation. In most cases, the condition is minor and gets better quickly. Treatment may include: ??? Applying a warm, wet cloth (warm compress) or heating pad. ??? Wearing compression stockings or bandages. ??? Medicines, such as: ??? Anti-inflammatory medicines. ??? Antibiotic medicines if an infection is present. ??? Blood-thinning medicines if a blood clot is suspected or present, or if you have a history of blood clots or a blood disorder. ??? Removing an IV that may be causing the problem. ??? Using a different medicine or solution that will not irritate the vein. In rare cases, surgery may be needed to remove a damaged section of a vein. Follow these instructions at home: Managing pain, stiffness, and swelling ??? If directed, apply heat to the [...] a greater risk of getting burned. ??? Raise (elevate) the affected area above the level of your heart while you are sitting or lying down. Medicines ??? Take [id number] and prescription medicines only as told by your health care provider. ??? If you were prescribed an antibiotic, take it as told by your health care provider. Do not stopusing the antibiotic even if you start to feel better. ??? If you are taking blood thinners: ??? Talk with your health care provider before you take any medicines that contain aspirin or NSAIDs, such as ibuprofen. These medicines increase your risk for dangerous bleeding. ??? Take your medicine exactly as told, at the same time every day. ??? Avoid activities that could cause injury or bruising, and follow instructions about how to prevent falls. ??? Wear a medical alert bracelet or carry a card that lists what medicines you take. General instructions ??? If you have phlebitis in your legs: ??? Avoid sitting or lying down for a long time. ??? Keep your legs moving. ??? Try to take short walks to break up long periods of sitting. ??? Try to avoid bed rest that lasts for long periods of time. Regular sleep is not part of bed rest. ??? Wear compression stockings or bandages as told by your health care provider. These stockings reduce swelling in your legs and help to prevent blood clots. They also help to prevent the condition from coming back. ??? Do not use any products that contain nicotine or tobacco. These products include cigarettes, chewing tobacco, and vaping devices, such as e-cigarettes. If you need help quitting, ask your health care provider. ??? Keep all follow-up visits. This is important. This may include any follow-up blood tests. Contact a health care provider if: ??? You have unusual bruising or any bleeding problems. ??? Your symptoms do not get better, or your symptoms get worse. ??? You are on anti-inflammatory medicines and you develop abdominal pain or dark, tarry stools. Get help right away if: ??? You suddenly have chest pain or trouble breathing. ??? You have a fever and your symptoms suddenly get worse. ??? You cough up blood. ??? You feel light-headed or you faint. ??? You have severe pain and swelling in the affected arm or leg. These symptoms may represent a serious problem that is an emergency. Do not wait to see if the symptoms will go away. Get medical help right away. Call your local emergency services (911 in the [place] Do not drive yourself to the hospital. Summary ??? Phlebitis is soreness and swelling of a vein. ??? Phlebitis is usually not serious when it occurs close to the surface of the body. However, it can cause serious problems when it occurs deeper inside the body. ??? Treatment depends on the severity of the condition and the location of the inflammation. ??? Raise (elevate) the affected area above the level of your heart while you are sitting or lying down. This information is not intended to replace advice given to you by your health care provider. Make sure you discuss any questions you have with your health care provider. Document Revised: 01/29/2021 Document Reviewed: 01/29/2021 [employer] Patient Education ?? 2022 [employer]. Physician Emergency department Note * Mp Knott MD: PERFORM Event Display: ED Note Physician Authored Date: [id number] DESIRE SANCHEZ :1995 Age:27 years Sex:Male Visit Date:05/25/2023 Primary Care Physician: JARRELL HOUSER DO Basic Information ??No qualifying data available.?? Chief Complaint Pt c/o increasing R calf pain and a lump, no measured fevers. History Of Present Illness: Frequent ED visitor,??seen yesterday for??right leg pain diagnosed with muscle strain, presents with point tenderness in his calf??which he localizes to a??small palpable cord.?? Patient has significant anxiety??has been seen in our ER from many different things??including 25 visits in the last 4 months, feels like his leg has gotten more swollen.?? I measured the calf as they are equal (43 cm).?? He has no redness warmth,??lymphangitic streaking etc. ??He does have a small??point tenderness area in his??medial right calf.?? Patient was also concerned that??the hand-held ultrasound used yesterday to evaluate this was inadequate.?? I read the note from the prior attending from yesterday??who documented??no clot in the leg.?? 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 Many hours a day.?? Does complain of getting some??slight ankle swelling at the end of the day bilaterally.?? 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 Review of Systems: Review of Systems: Constitutional: [No fevers] Eye: [No acute visual complaints, no eye discharge] ENT: [No ear pain, nasal congestion, sore throat] Respiratory: [No shortness of breath, no cough] Cardiovascular: [No Chest pain] Gastrointestinal: [No nausea, vomiting, or diarrhea. No rectal bleeding or melena] Genitourinary: [No dysuria; no hematuria] Musculoskeletal: [Right calf pain,]??? Right leg swelling Integumentary: [No rashes] Neurologic: [No focal complaints.??No LOC] ?? Physical Exam: General: [Alert, well nourished, no acute distress].?Not tachycardic not hypoxic, Eye: [PERRL, EOMI, normal conjunctiva]. HENT: [Normocephalic, normal hearing, moist oral mucosa, no scleral icterus, no nasal discharge].?? Neck: [Ranging neck, normal inspection].?? Lungs: [Clear, non-labored respiration, no tachypnea].?? Heart: [Normal rate, regular rhythm, no murmurs]. Abdomen: [Soft, non-tender, non-distended].?? Musculoskeletal: [Normal range of motion and strength, no tenderness or swelling].?? 43 cm calves bilaterally, no erythema,??point tenderness??mid right medial calf Skin: [Skin is warm, no rashes]. Neurologic: [Awake, alert and oriented X4, normal tone, moving all extremities with good strength].[Ambulation intact]. Psychiatric: [Cooperative, appropriate mood and affect]. Physical Exam Vitals & Measurements T:??36.9?C ??(Temporal Artery)?? HR:??98??(Peripheral)?? RR:??16?? BP:??115/78?? SpO2:??100%?? HT:??177??cm?? WT:??113??kg?? BMI:??36.07?? O2 Therapy:??Room air?? Procedure No Qualifying Data Assessment/Plan 1.??Superficial thrombophlebitis of right leg??I80.01 Orders: Discharge Patient, 05/25/23 8:54:00 EST, Home Independently Bedside ultrasound with good visualization of greater saphenous vein, common femoral vein, superficial femoral vein down to the mid quadriceps,??popliteal vein,??proximal branches of??calf veins?easy coaptation, no??difficulty with??coaptation.?? Evaluating the site where he complains of pain there is no evidence of cellulitis, no??cobblestoning, no thickening relative to other areas of his skin in his calf.?? He does localize on ultrasound to a small torturous superficial vein that is less than 1 cm??to the surface in this location is pinpoint tender.?? I reassured the patient that??he has no evidence of??DVT, that this is treated with Tylenol and Motrin??she can use warm compresses, and he should use compression stockings??given his??time on his feet and time in a car, obesity etc.?? Okay for discharge with follow-up with PMD. Patient Education Phlebitis Medication Reconciliation Unchanged acetaminophen (acetaminophen 325 mg [...] abuse Procedure/Surgical History ???Parathyroid Allergies amoxicillin??(Vomiting symptom) codeine Social History Alcohol [...] Unknown. Cause of : Electronically Signed on 05/25/23 09:32 AM Mp Knott MD Emergency department Discharge instructions * Mp Knott MD: PERFORM Event Display: ED Discharge Information Authored Date: [id number] DESIRE SANCHEZ :1995 Age:27 years Sex:Male Visit Date:05/25/2023 Primary Care Physician: JARRELL HOUSER DO Discharge Instructions We would like to thank you for allowing us to assist you with your healthcare needs. The following includes patient education materials and information regarding your injury/illness. Diagnosis from Today's Visit Superficial thrombophlebitis of right leg Discharge Vitals Temperature??(Temporal Artery) 98.4 ??F (36.9 ??C) Heart Rate??(Peripheral) 98 Respiratory Rate?? 16 Blood Pressure?? 115/78?? Height?? 69.69 in (177 cm) Weight?? 249.17 lb (113 kg) BMI?? 36.07 Allergies amoxicillin??(Vomiting symptom) codeine What to Do Next Instructions from Your Care Team The tenderness in your right calf localizes on ultrasound??to the superficial veins??very close to the skin.?? Blood clots we worry about in the leg involve the deep veins (the veins that are paired with??major arteries).?? On your??leg ultrasound??you have no evidence of a blood clot anywhere??along your right leg from your groin down to your calf.?? I do not think you have a skin infection??at the site you are sore.?? Treatment for??irritation of a superficial vein is Tylenol and Motrin and??warm compresses.?? If you spend a lot of time on your feet and you develop??swelling in your legs,??it is not a bad idea to use compression stockings.?? This puts pressure??on your legs and helps??prevent your veins from??being dilated,??and may??improve your leg discomfort. ?? Follow-up with your primary care??provider for routine care. ??Return emergency??if you develop??redness, fevers, streaking up the leg,??or??significant swelling in your leg??(today your calf measurements were equal??bilaterally). ??The best way to prevent blood clots is to get up and walk, especially if you are spending a lot of time in your vehicle. Upcoming Scheduled Appointments 2022 12:15 PM EST [...] Chest pain due to GERD [employer] Phlebitis Phlebitis is soreness and swelling of a vein. This can occur in the arms, legs, or torso, as well as deeper inside the body. Phlebitis is usually not serious when it occurs close to the surface of the body. However, it can cause serious problems when it occurs deeper inside the body. What are the causes? Phlebitis can be caused by: ? Having a needle, IV, or long, thin tube (catheter) put in the vein. ? Getting certain medicines or solutions through an IV. Some medicines or solutions, such as antibiotics and cancer medicines, can irritate the vein. ? Having an IV for a long period of time or in a part of the body that moves a lot. ? A blood clot. ? Infection of the vein. ? Surgery on a vein. What increases the risk? The following factors may make you more likely to develop this condition: ? Being overweight or obese. ? . ? Cancer. ? Reduced or slowing of blood flow through your veins. This can be caused by: ? Bed rest over a long period of time. ? Long-distance travel. ? Injury. ? Surgery. ? Congestive heart failure. ? Inactivity. ? Smoking. ? Taking control pills or hormone replacement therapy. ? Varicose veins. ? Inflammatory diseases or blood disorders that increase clotting. ? Taking drugs through the vein. ? Having a history of blood clots. What are the signs or symptoms? Symptoms of this condition include: ? A red, tender, swollen, and painful area on your skin. Usually, the area is long and narrow, and itmay spread. ? The affected area feeling warm to the touch. ? Firmness along the center of the affected area. ? Low fever. How is this diagnosed? This condition is diagnosed based on: ? Your symptoms. ? A physical exam. ? Your medical history, including your family history. Tests may be done to rule out other conditions, such as blood clots, especially if you have a history of blood clots or are at higher risk of developing blood clots. These may include: ? Blood tests. ? Ultrasound exam. ? Genetic tests. ? Biopsy. This is when a tissue sample is removed from the body and looked at under a microscope. This is rare. How is this treated? Treatment depends on the severity of the condition as well as the location of the inflammation. In most cases, the condition is minor and gets better quickly. Treatment may include: ? Applying a warm, wet cloth (warm compress) or heating pad. ? Wearing compression stockings or bandages. ? Medicines, such as: ? Anti-inflammatory medicines. ? Antibiotic medicines if an infection is present. ? Blood-thinning medicines if a blood clot is suspected or present, or if you have a history of bloodclots or a blood disorder. ? Removing an IV that may be causing the problem. ? Using a different medicine or solution that will not irritate the vein. In rare cases, surgery may be needed to remove a damaged section of a vein. Follow these instructions at home: Managing pain, stiffness, and swelling ? If directed, apply heat to the [...] a greater risk of getting burned. ? Raise (elevate) the affected area above the level of your heart while you are sitting or lying down. Medicines ? Take [id number] and prescription medicines only as told by your health care provider. ? If you were prescribed an antibiotic, take it as told by your health care provider. Do not stop using the antibiotic even if you start to feel better. ? If you are taking blood thinners: ? Talk with your health care provider before you take any medicines that contain aspirin or NSAIDs, such as ibuprofen. These medicines increase your risk for dangerous bleeding. ? Take your medicine exactly as told, at the same time every day. ? Avoid activities that could cause injury or bruising, and follow instructions about how to prevent falls. ? Wear a medical alert bracelet or carry a card that lists what medicines you take. General instructions ? If you have phlebitis in your legs: ? Avoid sitting or lying down for a long time. ? Keep your legs moving. ? Try to take short walks to break up long periods of sitting. ? Try to avoid bed rest that lasts for long periods of time. Regular sleep is not part of bed rest. ? Wear compression stockings or bandages as told by your health care provider. These stockings reduceswelling in your legs and help to prevent blood clots. They also help to prevent the condition fromcoming back. ? Do not use any products that contain nicotine or tobacco. These products include cigarettes, chewing tobacco, and vaping devices, such as e-cigarettes. If you need help quitting, ask your health careprovider. ? Keep all follow-up visits. This is important. This may include any follow-up blood tests. Contact a health care provider if: ? You have unusual bruising or any bleeding problems. ? Your symptoms do not get better, or your symptoms get worse. ? You are on anti-inflammatory medicines and you develop abdominal pain or dark, tarry stools. Get help right away if: ? You suddenly have chest pain or trouble breathing. ? You have a fever and your symptoms suddenly get worse. ? You cough up blood. ? You feel light-headed or you faint. ? You have severe pain and swelling in the affected arm or leg. These symptoms may represent a serious problem that is an emergency. Do not wait to see if the symptoms will go away. Get medical help right away. Call your local emergency services (911 in the [place] Do not drive yourself to the hospital. Summary ? Phlebitis is soreness and swelling of a vein. ? Phlebitis is usually not serious when it occurs close to the surface of the body. However, it can cause serious problems when it occurs deeper inside the body. ? Treatment depends on the severity of the condition and the location of the inflammation. ? Raise (elevate) the affected area above the level of your heart while you are sitting or lying down. This information is not intended to replace advice given to you by your health care provider. Make sure you discuss any questions you have with your health care provider. Document Revised: 01/29/2021 Document Reviewed: 01/29/2021 [employer] Patient Education ?? 2022 [employer] Patient/Offset Printer Signature Patient Name:DESIRE SANCHEZ I have received this information and my questions have been answered. Patient/Offset Printer Name: Patient/Offset Printer Signature: Relationship to Patient: Witness Name/Signature: Date: Electronically Signed on: 05/25/2023 08:58 ESTSigned by:Nava Patient Care team information Care Team Personnel Name: JARRELL HOUSER DO Position: No Access Member Role: Primary Care Physician Address: Address: [address] [address] Name: Cami Melgar Position: Perioperative - Nurse Member Role: ED Nurse Care Team Related Persons Name: ARY SANCHEZ Name: MILLER SANCHEZ
--- OUTSIDE RECORDS SUMMARY | 2023-06-01 09:42 | XMS_ITS | Continuity of Care Document ---
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 Name Role Phone JARRELL HOUSER DO Primary Care Physician Encounter LTTL_RI FIN NBR [phone] Date(s): 05/24/23 - 05/24/23 [facility] [address] [place] [address]- Encounter Diagnosis Muscle strain of lower leg(Discharge Diagnosis) - 05/24/23 Discharge Disposition: Home or Self Care Attending Physician: Uday Daíz MD Admitting Physician: Uday Díaz MD Allergies, Adverse Reactions, Alerts Substance Reaction Severity Status codeine Unknown Active amoxicillin Vomiting symptom Moderate Active Assessment and Plan Future Appointments Functional Status 05/24/23 Family Member Travel History No recent t [...] 6.7 g, 0 Refill(s), 06/02/23 9:14:00 PM 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.] 1 2 Temperature Oral [35.8-37.3 Deg C] 36.7 Deg C (05/24/23 7:56 AM) Peripheral Pulse Rate [60-100 bpm] 105 b pm *HI* (05/24/23 8:57 AM) 135 bpm *HI* (05/24/23 7:56 AM) Respiratory Rate [12-24 br/min] 16 br/mi n (05/24/23 7:56 AM) Blood Pressure [90-140/60-90 mmHg] 131/6 8mmHg (05/24/23 7:56 AM) Mean Arterial Pressure, Cuff [70-110 mmH g] 89 mmHg (05/24/23 7:56 AM) Weight 113.4 kg (05/24/23 7:56 AM) Weight Dosing 113.400 kg (05/24/23 7:56 AM) Height 177.8 cm (05/24/23 7:56 AM) Body Mass Index 35.87 kg/m2 (05/24/23 7:56 AM) Social History Social History Type Response Tobacco Never tobacco user T obacco Use:. Sex Hospital Discharge Instructions Patient Education 05/24/2023 07:57:39 Muscle Strain Muscle Strain A muscle strain [...] not too tight. General instructions ??? Take [id number] and prescription medicines only as told by [...] provider. Document Revised: 08/20/2021 Document Reviewed: 08/20/2021 [employer] Patient Education ?? 2022 [employer] Follow Up Care 05/24/2023 07:56:26 With:JARRELL HOUSER DO Address: [facility] [address] [place] [id number] When:2 to 4 weeks only if needed Physician Emergency department Note * Uday Díaz MD: PERFORM Event Display: ED Note Physician Authored Date: [id number] DESIRE SANCHEZ :1995 Age:27 years Sex:Male Visit Date:05/24/2023 Primary Care Physician: JARRELL HOUSER DO Basic Information Time Seen: Uday Díaz MD / 05/24/2023 08:41 Chief Complaint Woke up with R calf pain. No observed swelling or redness. + distal pulse and color. No pain meds taken this morning. History Of Present Illness: 27-year-old male frequent utilizer of the ER presents the ER complaining of right calf pain. 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 He thought perhaps he pulled a muscle.?? This morning woke up and thought he felt a lump in his leg and now comes in for evaluation.?? No??swelling in the legs. ??No numbness or weakness. ??No bowel or bladder change.?? No fevers or chills. ??No chest pain or shortness of breath. Review of Systems: CONSTITUTIONAL:??No fevers or chills. [...] in HPI Physical Exam Vitals & Measurements T:??36.7?C ??(Oral)?? HR:??105??(Peripheral)?? RR:??16?? BP:??131/68?? SpO2:??100%?? HT:??177.8??cm?? WT:??113.4??kg?? BMI:??35.87?? Pain Score:??3?? O2 Therapy:??Room air?? GENERAL:??Awake and alert. ??No acute distress. HEENT:??Normocephalic, atraumatic. ??Mucous membranes are moist. HEART:??Regular and borderline tachycardic. LUNGS:??Clear to auscultation bilaterally. ??No respiratory distress. ABDOMEN:??Soft, nontender, nondistended. BACK:??Normal to inspection and nontender. EXTREMITIES: Inspection of the lower extremities reveals no??asymmetric edema. ??No erythema or warmth.?? There is minimal if any tenderness to the posteromedial??right calf.?? No palpable cord??or mass. ??No erythema, warmth, or fluctuance.?? No posterior calf or medial thigh tenderness. ??PT and DP 2+. ??Motor and sensory intact distally. NEUROLOGIC:??Awake, alert, and oriented x3. ??Motor and sensory grossly intact. SKIN:??Warm and dry. VASCULAR:??Radial 2+ bilaterally. Medical Decision Making: Right calf muscle strain. ??No evidence for DVT. ??Neurovascularly intact. ??No evidence for??cellulitis.?? He had mild tachycardia but??admits to anxiety and heart rate??improved after evaluation. ??I have??very low suspicion for PE??or more serious systemic process. ??Recommend ibuprofen, Tylenol, rest. ??Follow-up with primary care 2 weeks if not improving, return if worse. Procedure Asfvh-zn-yrii ultrasound right lower extremity??shows??good compressibility of the venous system??with no intravascular hyperechoic material. ??Low probability for DVT. No Qualifying Data Assessment/Plan 1.??Muscle strain of lower leg??S86.919A Orders: Discharge Patient, 05/24/23 8:58:00 EST, Home Independently Patient Education Muscle Strain Follow Up With When Contact Information JARRELL HOUSER DO Within 2 to 4 weeks, only if needed [facility] [address] [place] [phone] Additional Instructions: Medication Reconciliation Unchanged acetaminophen (acetaminophen [...] Unknown. Cause of : Electronically Signed on 05/24/23 09:17 AM Uday Díaz MD Emergency department Discharge instructions * Uday Díaz MD: PERFORM Event Display: ED Discharge Information Authored Date: [id number] DESIRE SANCHEZ :1995 Age:27 years Sex:Male Visit Date:05/24/2023 Primary Care Physician: JARRELL HOUSER DO Discharge Instructions We would like to thank you for allowing us to assist you with your healthcare needs. The following includes patient education materials and information regarding your injury/illness. Diagnosis from Today's Visit Muscle strain of lower leg Discharge Vitals Temperature??(Oral) 98.1 ??F (36.7 ??C) Heart Rate??(Peripheral) 105 Respiratory Rate?? 16 Blood Pressure?? 131/68?? Height?? 70.00 in (177.8 cm) Weight?? 250.05 lb (113.4 kg) BMI?? 35.87 Allergies amoxicillin??(Vomiting symptom) codeine What to Do Next You Need to Schedule the Following Appointments Follow Up with??JARRELL HOUSER DO When:??Within 2 to 4 weeks, only if needed Where: [facility] [address] [place] [phone]- Upcoming Scheduled Appointments 2022 12:15 PM EST [...] not too tight. General instructions ? Take bfbn-[id number]-[id number] and prescription medicines only as told by [...] Reviewed: 08/20/2021 Else[employer] Patient Education ?? 2022 [employer] Patient/Product Support Sales Representative Signature Patient Name:DESIRE SANCHEZ I have received this information and my questions have been answered. Patient/Product Support Sales Representative Name: Patient/Product Support Sales Representative Signature: Relationship to Patient: Witness Name/Signature: Date: Electronically Signed on: 05/24/2023 08:58 ESTSigned by:MARILU Patient Care team information Care Team Personnel Name: JARRELL HOUSER DO Position: No Access Member Role: Primary Care Physician Address: Address: [address] [address]- [place] Name: Uday Díaz MD Position: Physician Member Role: ED Physician Address: Address: [address] [place] [phone]- Name: Abdulaziz Troncoso Position: Nurse Member Role: Registered Nurse Care Team Related Persons Name: ARY SANCHEZ Name: MILLER SANCHEZ
[2023-06-01] MEDS: diphenhydrAMINE 25 MG CAP 50 MG PO (09:44)
[2023-06-01] MEDS: diazePAM 5 MG TAB PO (09:45)
[2023-06-01 11:12] VITALS: PULSE 78; RESP 14; O2SAT 100
== END 2023-06-01 11:13 | disposition home or self-care (01) ==
PROVIDERS: Emergency Provider Student in an Organized Health Care Education/Training Program; PCP Family Medicine
DX: F41.0 Panic disorder [episodic paroxysmal anxiety] (principal); F41.9 Anxiety disorder, unspecified; F32.A Depression, unspecified
CPT/HCPCS: 99283; 99284

== ENCOUNTER 2023-06-03 08:40 | Emergency (ER) | payer OTHER, SELFPAY ==
[2023-06-03 08:46] VITALS: BP 143/95; PULSE 124; RESP 18; TEMP 37.3; O2SAT 96
[2023-06-03 09:00] VITALS: BP 143/95; PULSE 124; RESP 18; TEMP 37.3; O2SAT 96
--- NOTE | 2023-06-03 09:14 | W.ED.GENAD ---
Discharge Plan Disposition Patient Disposition: Home Condition: Good Discharge Details Clinical Impression: Jaw pain Primary Care Provider: Brendon Vivar ED Provider: Steph Jones Home Meds and New Rx's Prescriptions: Continued doxycycline monohydrate 100 mg tablet 100 mg PO BID Qty: 10 0RF methadone 10 mg/5 mL solution 100 mg PO QAM magnesium gluconate 27 mg magnesium (500 mg) tablet 27 mg PO BID Qty: 60 3RF clonazepam 1 mg tablet 1 mg PO BID Qty: 56 1RF calcitriol 0.5 mcg capsule 0.5 mcg PO BID Qty: 360 3RF Hold Instructions: Resume on 06/15/22. cyclobenzaprine 10 mg tablet 10 mg PO TID PRN (Reason: muscle spasm) Qty: 30 3RF diclofenac sodium 1 % gel 4 g topical QID Qty: 100 6RF Rx Instructions: apply to single knee, ankle, foot; for foot includes sole/toes/top of foot pantoprazole [Protonix] [address] for susp in packet 40 mg PO DAILY Qty: 30 0RF amitriptyline 50 mg tablet 50 mg PO QHS Qty: 60 1RF calcium carbonate [Tums] 200 mg calcium (500 mg) tablet,chewable 2,000 mg PO BID Hold Instructions: Resume on 05/12/23. Please hold your nightly dose tonight and your a.m. dose tomorrow morning. gabapentin 300 mg capsule 300 mg PO BID Discharge Instructions Instructions: Temporomandibular Disorder (ED) Additional Instructions: As we discussed, your exam was reassuring here today. I am concerned with her increased stress and that the pain is worse in the morning, you may be grinding her teeth at night. This also correlates with you cracking your jaw on the affected side. May use Tylenol and ibuprofen as instructed on the packaging to help with discomfort. Please encourage hydration. As it does seem like you did have presentation consistent with infection, please continue with antibiotics as previously prescribed by your primary care. Please follow-up with your primary care in 2 weeks for reevaluation and keep your upcoming dentist appointment. Return with any new or worsening symptoms. Referrals: Brendon Vivar DO [Primary Care Provider] - Discharge Data Discharge Date/Time-TO BE ENTERED AT DEPARTURE: 06/03/23 09:45 Medical Decision Making Patient is a pleasant 27-year-old male presenting today for continued left-sided jaw pain. He reports that he has had this jaw pain for about a week. Was seen here initially, there was concern for superficial skin infection per patient report. Was treated with Keflex. Seen by his primary care yesterday. At that point, there was concern for infection around parotid with mild cellulitis. No fevers/chills, otherwise feeling well. Pain worse in the AM, states he has been very stressed recently. On exam, patient appears nontoxic. Was rubbing face initially, once he stopped touching, the redness resolved and no evidence of erythema, warmth, swelling, drainage at this time. While he has overall poor dentition, no focal abscess or pain. Uvula is midline, no tonsillar swelling or erythema. No swelling in throat, trachea midline. No parotid swelling at this time. No stridor, no respiratory distress. No mastoid tenderness, TM normal. Full ROM of TMJ with some mild pain. He was initially tachycardic, at 103 now. Patient has had spike in his stress recently. States that he has been cracking his jaw along the ipsilateral side. Questioning if he may be grinding his teeth or clenching his jaw which is causing him to have increased pain. I did encourage that he continue with the antibiotics as he did recently have symptoms of an infection but at this point, I do not see any acute infection. Do not see need for change of medication. Encourage stress reduction. He has appointment with therapist for the first time today. He will follow-up with dentist, has appointment coming up. Strict return precautions discussed. Advise follow-up with primary care should his stress continue. All of his questions and concerns were addressed and he is in agreement this plan. Patient given Tylenol and ibuprofen for his discomfort. HPI General Date/Time Provider Initiated Documentation: 06/03/23 09:14. Limitations to Documentation: no limitations. Information obtained by: patient and RN notes reviewed. History of Present Illness 27 year old M presents to the emergency department with the chief complaint of left sided dental/jaw pain, described as severe, Quality is described as aching, and is localized to the face. Patient reports no radiation. Patient started experiencing this day(s) and it has been constant. No relieving factors improve symptom(s), Other factors that worsen symptoms (worse in the AM) . Patient notes no other symptoms.. Patient did receive the following treatments prior to arrival, other (on Doxycycline currently, started yesterday) Related Data Home Medications Medication Instructions Recorded Confirmed methadone 10 mg/5 mL oral solution 100 mg PO QAM 11/16/21 06/03/23 magnesium gluconate 27 mg 27 mg PO BID #60 tabs 11/08/22 06/03/23 magnesium (500 mg) tablet calcium carbonate 200 mg calcium 2,000 mg PO BID 02/02/23 06/03/23 (500 mg) chewable tablet (Tums) gabapentin 300 mg capsule 300 mg PO BID 02/02/23 06/03/23 calcitriol 0.5 mcg capsule 0.5 mcg PO BID #360 caps 04/21/23 06/03/23 clonazepam 1 mg tablet 1 mg PO BID #56 tabs 04/21/23 06/03/23 cyclobenzaprine 10 mg tablet 10 mg PO TID PRN muscle spasm #30 04/21/23 06/03/23 tabs diclofenac sodium 1 % topical gel 4 g topical QID #100 grams 04/21/23 06/03/23 pantoprazole 40 mg granules 40 mg PO DAILY #30 ea 05/19/23 06/03/23 delayed-release for susp in packet (Protonix) amitriptyline 50 mg tablet 50 mg PO QHS #60 tabs 05/26/23 06/03/23 doxycycline monohydrate 100 mg 100 mg PO BID #10 tabs 06/02/23 06/03/23 tablet Previous Rx's Medication Instructions Recorded magnesium gluconate 27 mg 27 mg PO BID #60 tabs 11/08/22 magnesium (500 mg) tablet calcitriol 0.5 mcg capsule 0.5 mcg PO BID #360 caps 04/21/23 clonazepam 1 mg tablet 1 mg PO BID #56 tabs 04/21/23 cyclobenzaprine 10 mg tablet 10 mg PO TID PRN muscle spasm #30 04/21/23 tabs diclofenac sodium 1 % topical gel 4 g topical QID #100 grams 04/21/23 pantoprazole 40 mg granules 40 mg PO DAILY #30 ea 05/19/23 delayed-release for susp in packet (Protonix) amitriptyline 50 mg tablet 50 mg PO QHS #60 tabs 05/26/23 doxycycline monohydrate 100 mg 100 mg PO BID #10 tabs 06/02/23 tablet Allergies Allergy/AdvReac Type Severity Reaction Status Date / Time codeine Allergy Intermediate pass out Verified 06/03/23 08:48 Penicillins Allergy Skin Rash Verified 06/03/23 08:48 amoxicillin AdvReac Intermediate Nausea Verified 06/03/23 08:48 dextromethorphan AdvReac Intermediate Other (See Unverified 06/03/23 08:48 [From NyQuil] Comment) doxylamine [From NyQuil] AdvReac Intermediate Other (See Unverified 06/03/23 08:48 Comment) pseudoephedrine [From NyQuil] AdvReac Intermediate Other (See Unverified 06/03/23 08:48 Comment) General Stated Complaint: DentalOral ADRIANA: 3 Review of Systems Constitutional Constitutional: Reports as per HPI, Denies chills, Denies fatigue, Denies fever(s), Denies headache(s) and Denies poor appetite Eyes Eyes: Denies change in vision and Denies irritation ENT Ears, Nose, Mouth, and Throat: Reports as per HPI, Reports dental pain, Denies dysphagia, Denies dry mouth, Denies ear discharge, Denies otalgia, Reports facial pain, Denies headache(s), Denies hoarseness, Denies lip swelling, Denies nasal congestion, Denies odynophagia and Denies sore throat Cardiovascular Cardiovascular: Reports as per HPI and Denies chest pain Respiratory Respiratory: Reports as per HPI and Denies cough Gastrointestinal Gastrointestinal: Reports as per HPI, Denies dysphagia, Denies nausea, Denies odynophagia and Denies vomiting Integumentary/Breasts Skin/Breast: Reports as per HPI, Denies erythema, Denies rash and Denies skin pain Neurologic Neurologic: Reports as per HPI and Denies headache(s) Endocrine Endocrine: Denies fatigue Allergic/Immunologic Allergic/Immunologic: Denies lip swelling PFSH All Active Problems (Updated 06/03/23 @ 09:35 by ANDREW Magaña) Jaw pain (Acute) Cellulitis (Acute) Panic attack (Acute) Rash (Acute) Bronchitis (Acute) Fatigue (Acute) Abdominal discomfort, generalized (Acute) Arthralgia of left shoulder region (Acute) Side effect of drug (Acute) Brachial plexus neuropathy (Acute) Hypercalcemia (Acute) Pharyngitis (Acute) Fall (Acute) Contusion (Acute) Back pain (Acute) Cholelithiases (Acute) 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 (Acute) Inflammatory arthritis (Acute) Costochondritis (Acute 12/13/22) [facility] Cellulitis (Acute) Severe anxiety with panic (Chronic) Family history of coronary arteriosclerosis (Chronic) Father of [place] at 50, mother had [place] at 42 Elevated parathyroid hormone (Acute) Suicidal ideation (Acute) Depression (Chronic) Hypocalcemia (Chronic) Hypomagnesemia (Chronic) Depression (Chronic) Primary hyperparathyroidism (Chronic) Chronic constipation (Chronic) Multiple endocrine neoplasia type I (Chronic) Iatrogenic hypocalcemia (Acute) Abdominal pain (Acute) Common bile duct dilatation (Acute) Intrahepatic bile duct dilation (Acute) Abnormal CT scan, kidney (Acute) Sphincter of Oddi dysfunction (Chronic) Therapeutic opioid induced constipation (Acute) Pulmonary nodule 1 cm or greater in diameter (Chronic) Neck pain on left side (Acute) with shoulder, upper back pain.. torticollis, radiating into left hip/leg History of electrolyte imbalance (Acute) Complex medical condition (Chronic) Serious electrolyte imbalances, with gynecomastia, possible MEN Dx, CKD and anemia with baseline anxiety and Hx PTSD. CKD (chronic kidney disease) stage 2, GFR 60-89 ml/min (Acute) GFR 64-65, with Hx FLORESITA and GFR < 45 Gynecomastia, male (Acute) b/l, per CT (Jul 2022).. Possible 2' Methadone, Clnzpm (?). Surg eval (+)/No further action. Left arm numbness (Acute) Medical History Hypocalcemia Anxiety Depression Hyperlipidemia Family history of multiple endocrine neoplasia, type 1 PTSD (post-traumatic stress disorder) Surgical History H/O parathyroidectomy Family History Mother Anxiety Asthma Depression Sister Anxiety Depression Father Cancer lung & stomach Depression Diabetes Hypertension MEN 1 (multiple endocrine neoplasia) Social History Smoking/Tobacco Use Status: Never Smoking risk assessment performed?: Yes Alcohol Intake: never Drug use: Rarely Substance use type: does not use and former substance user Details: Relapse w/ snorting 'small amount' of heroin 03/20/23 per pt Adopted: No Caregiver/Support person: No Foster care: No Household members: none Housing: apartment Number of Children: 0 Communication Needs: None Education Level: high school Do you need help understanding health information?: Never 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 and animals: Yes (Ally) Pets and animals: dog(s) Sexually active: No Do you think of yourself as: straight/heterosexual Current gender identity: male What is your relationship status?: How often do you talk on the phone with friends or family?: twice per week How often do you get together with friends or relatives?: never Do you belong to any clubs or organized social groups?: no Panel score (0-1 are the most socially isolated patients): 0 What type of physical activity do you participate in: walking Duration: 15-30 minutes/day Frequency: 5-6 times per week Maryam/Moravian: Restorationist Special maryam needs: No Seatbelt use: always Helmet use: Yes Helmet use: always Drive 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 tilt tray 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 Exam Const General: cooperative, healthy appearing, comfortable, no acute distress, well developed, well groomed and anxious Nutritional Appearance: average body habitus and well nourished Orientation: alert and awake [facility] Head: normal to inspection, normocephalic and atraumatic Ears: hearing grossly normal bilaterally, external ears normal and TM's normal bilaterally General nose exam: external nose normal and nares normal Face and sinus: normal facial exam, sinuses nontender, face symmetric, no crepitus, no ecchymosis, no erythema, no edema, no fluctuance and tenderness on the left (TMJ, mandibular angle) Mouth: oral mucosae normal, lip normal, tongue normal, moist mucous membranes, no muffled voice, normal salivary ducts, no trismus and No restricted motion Teeth and gingiva: poor dentition (no evidence of abscess, focal pain) Throat: posterior oropharynx normal, tonsils normal and uvula midline Eyes General: appearance normal, both eyes and all related structures Neck Neck: normal visual inspection, full ROM, no lymphadenopathy, supple and no anterior neck swelling Resp Effort & Inspection: normal respiratory effort, able to speak in complete sentences and no respiratory distress Cardio Rate: regular rate Rhythm: regular rhythm Skin General skin exam: no rashes or lesions noted Trauma: no lacerations or abrasions Neuro General: patient alert and patient awake Cognition: normal cognition Speech: speech normal Gait: normal gait Psych Appearance: grossly normal and well kempt Mental Status: mental status grossly normal Speech and Movement: speech and movement normal Course Vital Signs Vital signs: Vital Signs Temperature 37.3 C 06/03/23 08:46 Pulse 124 H 06/03/23 08:46 Respiratory Rate 18 06/03/23 08:46 Blood Pressure 143/95 H 06/03/23 08:46 Pulse Oximetry 96 06/03/23 08:46 Temperature 37.3 C 06/03/23 09:00 Temperature Source Temporal Artery Scan 06/03/23 09:00 Pulse 124 H 06/03/23 09:00 Respiratory Rate 18 06/03/23 09:00 Respiratory Effort Normal, Non-Labored 06/03/23 08:49 Blood Pressure 143/95 H 06/03/23 09:00 Blood Pressure Position Sitting 06/03/23 09:00 Pulse Oximetry 96 06/03/23 09:00 Oxygen Delivery Method Room Air 06/03/23 09:00 Oxygen Flow Rate 0 06/03/23 09:00
[2023-06-03] MEDS: Acetaminophen 325 MG TAB 650 MG PO (09:43)
[2023-06-03 09:44] VITALS: PULSE 111; O2SAT 97
[2023-06-03] MEDS: Ibuprofen 600 MG TAB PO (09:44)
== END 2023-06-03 09:45 | disposition home or self-care (01) ==
PROVIDERS: Emergency Provider Physician Assistant; PCP Family Medicine
DX: R68.84 Jaw pain (principal); E78.5 Hyperlipidemia, unspecified
CPT/HCPCS: 99282

== ENCOUNTER 2023-06-04 10:17 | Outpatient (CLI) | payer MEDICAID, SELFPAY ==
--- NOTE | 2023-06-04 10:15 | RT.EKG_ITS ---
APPROVED REPORT Exam: Resting ECG Reason for Exam: right chest pain Patient Location: O HR:78 bpm ECG Measurements Heart Rate 78 AXIS NM 189 P 46 QRSd 99 QRS 53 QT 412 T 36 QTc 470 Conclusion Sinus rhythm...normal P axis, V-rate 50- 99 Borderline prolonged QT interval...QTc >468mS I have reviewed and interpreted ECG and agree with software generated interpretation.
== END 2023-06-04 10:18 | disposition home or self-care (01) ==
LOC: DI.KIM 10:18
PROVIDERS: PCP Family Medicine; Visit Provider Nurse Practitioner
DX: R07.9 Chest pain, unspecified (principal)
CPT/HCPCS: 93010

== ENCOUNTER 2023-06-05 10:17 | Emergency (ER) | payer OTHER, SELFPAY ==
[2023-06-05 10:22] VITALS: BP 131/87; PULSE 98; RESP 16; TEMP 37.5; O2SAT 96
== END 2023-06-05 12:02 | disposition left against medical advice (07) ==
LOC: ER 11:11
PROVIDERS: PCP Family Medicine
DX: Z53.21 Procedure and treatment not carried out due to patient leaving prior to being seen by health care provider (principal)

== ENCOUNTER 2023-06-06 09:20 | Emergency (ER) | payer OTHER, SELFPAY ==
[2023-06-06 09:23] VITALS: BP 157/88; PULSE 108; RESP 15; TEMP 37.3; O2SAT 98
[2023-06-06 09:27] VITALS: BP 157/88; PULSE 108; RESP 15; TEMP 37.3; O2SAT 98
[2023-06-06 10:21] VITALS: RESP 14
--- NOTE | 2023-06-06 10:49 | W.ED.GENAD ---
Discharge Plan Disposition Patient Disposition: Home Condition: Stable Discharge Details Clinical Impression: Anxiety about health, Lump of breast, left Primary Care Provider: Brendon Vivar ED Provider: Lester Bundy Home Meds and New Rx's Prescriptions: Continued clindamycin HCl 150 mg capsule 300 mg PO TID Qty: 42 0RF methadone 10 mg/5 mL solution 100 mg PO QAM magnesium gluconate 27 mg magnesium (500 mg) tablet 27 mg PO BID Qty: 60 3RF clonazepam 1 mg tablet 1 mg PO BID Qty: 56 1RF calcitriol 0.5 mcg capsule 0.5 mcg PO BID Qty: 360 3RF Hold Instructions: Resume on 06/15/22. cyclobenzaprine 10 mg tablet 10 mg PO TID PRN (Reason: muscle spasm) Qty: 30 3RF diclofenac sodium 1 % gel 4 g topical QID Qty: 100 6RF Rx Instructions: apply to single knee, ankle, foot; for foot includes sole/toes/top of foot pantoprazole [Protonix] [address] for susp in packet 40 mg PO DAILY Qty: 30 0RF amitriptyline 50 mg tablet 50 mg PO QHS Qty: 60 1RF calcium carbonate [Tums] 200 mg calcium (500 mg) tablet,chewable 2,000 mg PO BID Hold Instructions: Resume on 05/12/23. Please hold your nightly dose tonight and your a.m. dose tomorrow morning. gabapentin 300 mg capsule 300 mg PO BID doxycycline hyclate 100 mg tablet 100 mg PO BID Discharge Instructions Instructions: Anxiety (ED), Breast Mass (ED) Additional Instructions: Please contact your primary care physician to arrange follow-up. Return to the ER immediately for any worsening or new concerning symptoms. Referrals: Brendon Vivar DO [Primary Care Provider] - Medical Decision Making 27-year-old male here with complaint of lump in his left breast, chronic but enlarged recently and more tender. No appreciable mass or inflammatory changes on exam. The area is tender to palpation. No signs of infection. Patient is being followed by primary care physician for this. I did speak to Dr. Vivar today and apprised him of repeat ED visit. Pedro Pablo has an appointment next Friday with his PCP and he was encouraged to keep this appointment for reassessment. HPI General Mode of arrival: ambulatory. Date/Time Provider Initiated Documentation: 06/06/23 09:27. Limitations to Documentation: no limitations. Information obtained by: patient. HPI Narrative: Mr. Cortes is a 27-year-old male well-known to the emergency department presenting with chief complaint of lump in his left breast. Patient has had this lump for months. He has been seen here in the emergency department for this. Has been seen by his primary care physician for this. Imaging has been performed and nondiagnostic. Patient notes over the past couple days lump seems to be larger and tender. No nipple discharge. No rash. Related Data Home Medications Medication Instructions Recorded Confirmed methadone 10 mg/5 mL oral solution 100 mg PO QAM 11/16/21 06/06/23 magnesium gluconate 27 mg 27 mg PO BID #60 tabs 11/08/22 06/06/23 magnesium (500 mg) tablet calcium carbonate 200 mg calcium 2,000 mg PO BID 02/02/23 06/06/23 (500 mg) chewable tablet (Tums) gabapentin 300 mg capsule 300 mg PO BID 02/02/23 06/06/23 calcitriol 0.5 mcg capsule 0.5 mcg PO BID #360 caps 04/21/23 06/06/23 clonazepam 1 mg tablet 1 mg PO BID #56 tabs 04/21/23 06/06/23 cyclobenzaprine 10 mg tablet 10 mg PO TID PRN muscle spasm #30 04/21/23 06/06/23 tabs diclofenac sodium 1 % topical gel 4 g topical QID #100 grams 04/21/23 06/06/23 pantoprazole 40 mg granules 40 mg PO DAILY #30 ea 05/19/23 06/06/23 delayed-release for susp in packet (Protonix) amitriptyline 50 mg tablet 50 mg PO QHS #60 tabs 05/26/23 06/06/23 clindamycin HCl 150 mg capsule 300 mg (2 x 150 mg) PO TID #42 caps 06/04/23 06/06/23 doxycycline hyclate 100 mg tablet 100 mg PO BID 06/06/23 06/06/23 Previous Rx's Medication Instructions Recorded magnesium gluconate 27 mg 27 mg PO BID #60 tabs 11/08/22 magnesium (500 mg) tablet calcitriol 0.5 mcg capsule 0.5 mcg PO BID #360 caps 04/21/23 clonazepam 1 mg tablet 1 mg PO BID #56 tabs 04/21/23 cyclobenzaprine 10 mg tablet 10 mg PO TID PRN muscle spasm #30 04/21/23 tabs diclofenac sodium 1 % topical gel 4 g topical QID #100 grams 04/21/23 pantoprazole 40 mg granules 40 mg PO DAILY #30 ea 05/19/23 delayed-release for susp in packet (Protonix) amitriptyline 50 mg tablet 50 mg PO QHS #60 tabs 05/26/23 clindamycin HCl 150 mg capsule 300 mg (2 x 150 mg) PO TID #42 caps 06/04/23 Allergies Allergy/AdvReac Type Severity Reaction Status Date / Time codeine Allergy Intermediate pass out Verified 06/06/23 09:28 Penicillins Allergy Skin Rash Verified 06/06/23 09:28 amoxicillin AdvReac Intermediate Nausea Verified 06/06/23 09:28 dextromethorphan AdvReac Intermediate Other (See Verified 06/06/23 09:28 [From NyQuil] Comment) doxylamine [From NyQuil] AdvReac Intermediate Other (See Verified 06/06/23 09:28 Comment) pseudoephedrine [From NyQuil] AdvReac Intermediate Other (See Verified 06/06/23 09:28 Comment) General Stated Complaint: GenMedical ADRIANA: 3 Review of Systems Gastrointestinal Gastrointestinal: Reports nausea Integumentary/Breasts Skin/Breast: Reports as per HPI PFSH All Active Problems Lump of breast, left (Acute) Anxiety about health (Acute) Jaw pain (Acute) Cellulitis (Acute) Panic attack (Acute) Rash (Acute) Bronchitis (Acute) Fatigue (Acute) Abdominal discomfort, generalized (Acute) Arthralgia of left shoulder region (Acute) Side effect of drug (Acute) Brachial plexus neuropathy (Acute) Hypercalcemia (Acute) Pharyngitis (Acute) Fall (Acute) Contusion (Acute) Cholelithiases (Acute) 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 (Acute) Inflammatory arthritis (Acute) Costochondritis (Acute 12/13/22) [facility] Cellulitis (Acute) Severe anxiety with panic (Chronic) Family history of coronary arteriosclerosis (Chronic) Father of [place] at 50, mother had [place] at 42 Elevated parathyroid hormone (Acute) Suicidal ideation (Acute) Depression (Chronic) Hypocalcemia (Chronic) Hypomagnesemia (Chronic) Depression (Chronic) Primary hyperparathyroidism (Chronic) Chronic constipation (Chronic) Multiple endocrine neoplasia type I (Chronic) Iatrogenic hypocalcemia (Acute) Abdominal pain (Acute) Common bile duct dilatation (Acute) Intrahepatic bile duct dilation (Acute) Abnormal CT scan, kidney (Acute) Sphincter of Oddi dysfunction (Chronic) Therapeutic opioid induced constipation (Acute) Pulmonary nodule 1 cm or greater in diameter (Chronic) Neck pain on left side (Acute) with shoulder, upper back pain.. torticollis, radiating into left hip/leg History of electrolyte imbalance (Acute) Complex medical condition (Chronic) Serious electrolyte imbalances, with gynecomastia, possible MEN Dx, CKD and anemia with baseline anxiety and Hx PTSD. CKD (chronic kidney disease) stage 2, GFR 60-89 ml/min (Acute) GFR 64-65, with Hx FLORESITA and GFR < 45 Gynecomastia, male (Acute) b/l, per CT (Jul 2022).. Possible 2' Methadone, Clnzpm (?). Surg eval (+)/No further action. Left arm numbness (Acute) Medical History Hypocalcemia Anxiety Depression Hyperlipidemia Family history of multiple endocrine neoplasia, type 1 PTSD (post-traumatic stress disorder) Surgical History H/O parathyroidectomy Family History Mother Anxiety Asthma Depression Sister Anxiety Depression Father Cancer lung & stomach Depression Diabetes Hypertension MEN 1 (multiple endocrine neoplasia) Social History Smoking/Tobacco Use Status: Never Smoking risk assessment performed?: Yes Alcohol Intake: never Drug use: Rarely Substance use type: does not use and former substance user Details: Relapse w/ snorting 'small amount' of heroin 03/20/23 per pt Adopted: No Caregiver/Support person: No Foster care: No Household members: none Housing: apartment Number of Children: 0 Communication Needs: None Education Level: high school Do you need help understanding health information?: Never 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 and animals: Yes (Ally) Pets and animals: dog(s) Sexually active: No Do you think of yourself as: straight/heterosexual Current gender identity: male What is your relationship status?: How often do you talk on the phone with friends or family?: twice per week How often do you get together with friends or relatives?: never Do you belong to any clubs or organized social groups?: no Panel score (0-1 are the most socially isolated patients): 0 What type of physical activity do you participate in: walking Duration: 15-30 minutes/day Frequency: 5-6 times per week Maryam/Anabaptism: Restoration Special maryam needs: No Seatbelt use: always Helmet use: Yes Helmet use: always Drive 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 service car 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 Exam Const General: cooperative and no acute distress HENMT Mouth: moist mucous membranes Eyes Conjunctivae: normal conjunctivae Sclera: normal sclerae Chest Chest: no masses and tenderness (Left breast) Breast inspection: normal inspection of the breasts, normal inspection of the axillae and Other (No palpable mass, no erythema, no nipple discharge) Breast palpation: no axillary lymphadenopathy Other: Exam performed with nurse interactive project manager present Cardio Rate: regular rate and not tachycardic GI Palpation: nontender Skin General skin exam: no rashes or lesions noted Course Vital Signs Vital signs: Vital Signs Temperature 37.3 C 06/06/23 09:23 Pulse 108 H 06/06/23 09:23 Respiratory Rate 15 06/06/23 09:23 Blood Pressure 157/88 H 06/06/23 09:23 Pulse Oximetry 98 06/06/23 09:23 Temperature 37.3 C 06/06/23 09:27 Temperature Source Temporal Artery Scan 06/06/23 09:27 Pulse 108 H 06/06/23 09:27 Respiratory Rate 14 06/06/23 10:21 Respiratory Effort Normal 06/06/23 10:21 Respiratory Depth Normal 06/06/23 10:21 Respiratory Pattern Normal 06/06/23 10:21 Blood Pressure 157/88 H 06/06/23 09:27 Blood Pressure Position Sitting 06/06/23 09:27 Pulse Oximetry 98 06/06/23 09:27 Oxygen Delivery Method Room Air 06/06/23 09:27 Oxygen Flow Rate 0 06/06/23 09:27 Pain Level 8 06/06/23 09:27
== END 2023-06-06 11:34 | disposition home or self-care (01) ==
PROVIDERS: Emergency Provider Student in an Organized Health Care Education/Training Program; PCP Family Medicine
DX: N63.20 Unspecified lump in the left breast, unspecified quadrant (principal); R45.89 Other symptoms and signs involving emotional state
CPT/HCPCS: 99282; 99283

== ENCOUNTER 2023-06-08 09:25 | Emergency (ER) | payer OTHER, SELFPAY ==
--- NOTE | 2023-06-08 09:15 | RT.EKG_ITS ---
APPROVED REPORT Exam: Resting ECG Reason for Exam: CHEST ABD PAIN Patient Location: E HR:95 bpm ECG Measurements Heart Rate 95 AXIS AR 196 P 38 QRSd 98 QRS 42 QT 362 T 17 QTc 455 Conclusion Sinus rhythm...normal P axis, V-rate 60- 99 NSR, NL axis, NL intervals. No acute STTW changes, No STEMI, no significant changes from previous.
[2023-06-08 09:31] VITALS: BP 131/67; PULSE 99; RESP 18; TEMP 36.8; O2SAT 98
[2023-06-08 09:33] VITALS: BP 131/67; PULSE 100; PULSE 98; RESP 18; O2SAT 98
--- NOTE | 2023-06-08 09:45 | DI.RAD_ITS ---
Exam(s) XR CHEST 2V PA LATERAL EXAM: XR CHEST 2V PA LATERAL CLINICAL HISTORY: epigastric pain. TECHNIQUE: 2D digital imaging was performed. COMPARISON: CR,XR XR CHEST 2V PA LATERAL from 05/25/2023 FINDINGS: 2 views: Heart size is normal. The mediastinum is not widened. Lungs are clear. No infiltrates nor pleural effusions. IMPRESSION: No acute pulmonary findings. DATA REPOSITORY: RADIATION DOSE DELIVERED:
--- NOTE | 2023-06-08 09:52 | W.ED.GENAD ---
Discharge Plan Disposition Patient Disposition: Home Discharge Details Clinical Impression: Hemoptysis, Abdominal pain, Cholelithiasis Primary Care Provider: Brendon iVvar ED Provider: Luh Tsai Home Meds and New Rx's Prescriptions: Continued magnesium gluconate 27 mg magnesium (500 mg) tablet 27 mg PO BID Qty: 60 3RF clonazepam 1 mg tablet 1 mg PO BID Qty: 56 1RF calcitriol 0.5 mcg capsule 0.5 mcg PO BID Qty: 360 3RF Hold Instructions: Resume on 06/15/22. cyclobenzaprine 10 mg tablet 10 mg PO TID PRN (Reason: muscle spasm) Qty: 30 3RF diclofenac sodium 1 % gel 4 g topical QID Qty: 100 6RF Rx Instructions: apply to single knee, ankle, foot; for foot includes sole/toes/top of foot calcium carbonate [Tums] 200 mg calcium (500 mg) tablet,chewable 2,000 mg PO BID Hold Instructions: Resume on 05/12/23. Please hold your nightly dose tonight and your a.m. dose tomorrow morning. gabapentin 300 mg capsule 300 mg PO BID No Action methadone 10 mg/5 mL solution 105 mg PO QAM omeprazole 40 mg capsule,delayed release(DR/EC) 40 mg PO DAILY polyethylene glycol 3350 17 gram/dose powder 17 g PO DAILY Discharge Instructions Instructions: Abdominal Pain (ED) Additional Instructions: Please follow-up with surgery, placed on the list for follow-up Increase fluid hydration, you may take cough medicine [id number] as needed, I suspect you have some inflammation in your lungs this will likely self resolve To develop increased bloody sputum, chest discomfort that is worsening, vomiting your blood, or with any new or worsening complaints, please return to the emergency department for reassessment Referrals: Brendon Vivar DO [Primary Care Provider] - Discharge Data Discharge Date/Time-TO BE ENTERED AT DEPARTURE: 06/08/23 11:19 Medical Decision Making 27-year-old male, alert and oriented, at his baseline with, given that hemoptysis and abdominal pain, I will check LFTs, lipase, basic labs, hemoglobin and hematocrit stable, hemodynamically stable, Feeling improvement after IV Tylenol administration Given patient has had numerous CAT scans, I think the risk of ordering an additional CAT scan outweighs benefit and we do not have ultrasound capabilities at this time. Will order outpatient ultrasound, no evidence of acute cholecystitis clinically Return precautions reviewed and patient expressed understanding HPI General Date/Time Provider Initiated Documentation: 06/08/23 09:26. HPI Narrative: This 27-year-old male presents with report of epigastric pain with 1 episode of hemoptysis. States pain started after eating a sausage egg and cheese. States he has known cholelithiasis and is scheduled to have his gallbladder out. States pain had a coughing spell and then had a very small episode of hemoptysis. Denies any current chest pain or shortness of breath. Denies any additional complaints at this time. Related Data Home Medications Medication Instructions Recorded Confirmed magnesium gluconate 27 mg 27 mg PO BID #60 tabs 11/08/22 06/11/23 magnesium (500 mg) tablet calcium carbonate 200 mg calcium 2,000 mg PO BID 02/02/23 06/11/23 (500 mg) chewable tablet (Tums) gabapentin 300 mg capsule 300 mg PO BID 02/02/23 06/11/23 calcitriol 0.5 mcg capsule 0.5 mcg PO BID #360 caps 04/21/23 06/11/23 clonazepam 1 mg tablet 1 mg PO BID #56 tabs 04/21/23 06/11/23 cyclobenzaprine 10 mg tablet 10 mg PO TID PRN muscle spasm #30 04/21/23 06/11/23 tabs diclofenac sodium 1 % topical gel 4 g topical QID #100 grams 04/21/23 06/11/23 methadone 10 mg/5 mL oral solution 105 mg PO QAM 06/12/23 omeprazole 40 mg capsule,delayed 40 mg PO DAILY 06/12/23 release polyethylene glycol 3350 17 17 g PO DAILY 06/12/23 gram/dose oral powder Previous Rx's Medication Instructions Recorded magnesium gluconate 27 mg 27 mg PO BID #60 tabs 11/08/22 magnesium (500 mg) tablet calcitriol 0.5 mcg capsule 0.5 mcg PO BID #360 caps 04/21/23 clonazepam 1 mg tablet 1 mg PO BID #56 tabs 04/21/23 cyclobenzaprine 10 mg tablet 10 mg PO TID PRN muscle spasm #30 04/21/23 tabs diclofenac sodium 1 % topical gel 4 g topical QID #100 grams 04/21/23 Allergies Allergy/AdvReac Type Severity Reaction Status Date / Time codeine Allergy Intermediate pass out Verified 06/12/23 17:11 Penicillins Allergy Skin Rash Verified 06/12/23 17:11 amoxicillin AdvReac Intermediate Nausea Verified 06/12/23 17:11 dextromethorphan AdvReac Intermediate Other (See Verified 06/12/23 17:11 [From NyQuil] Comment) doxylamine [From NyQuil] AdvReac Intermediate Other (See Verified 06/12/23 17:11 Comment) pseudoephedrine [From NyQuil] AdvReac Intermediate Other (See Verified 06/12/23 17:11 Comment) General Stated Complaint: Abd Prob ADRIANA: 3 PFSH All Active Problems Opiate dependence, continuous (Acute) Abdominal pain in male (Acute) Cholelithiasis (Acute) Abdominal pain (Acute) Hemoptysis (Acute) Lump of breast, left (Acute) Anxiety about health (Acute) Jaw pain (Acute) Cellulitis (Acute) Panic attack (Acute) Rash (Acute) Bronchitis (Acute) Fatigue (Acute) Abdominal discomfort, generalized (Acute) Arthralgia of left shoulder region (Acute) Side effect of drug (Acute) Brachial plexus neuropathy (Acute) Cholelithiases (Acute) 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 Cellulitis (Acute) Severe anxiety with panic (Chronic) Family history of coronary arteriosclerosis (Chronic) Father of [place] at 50, mother had [place] at 42 Elevated parathyroid hormone (Acute) Suicidal ideation (Acute) Depression (Chronic) Hypocalcemia (Chronic) Hypomagnesemia (Chronic) Depression (Chronic) Primary hyperparathyroidism (Chronic) Chronic constipation (Chronic) Multiple endocrine neoplasia type I (Chronic) Iatrogenic hypocalcemia (Acute) Abdominal pain (Acute) Common bile duct dilatation (Acute) Intrahepatic bile duct dilation (Acute) Abnormal CT scan, kidney (Acute) Sphincter of Oddi dysfunction (Chronic) Therapeutic opioid induced constipation (Acute) Pulmonary nodule 1 cm or greater in diameter (Chronic) Neck pain on left side (Acute) with shoulder, upper back pain.. torticollis, radiating into left hip/leg History of electrolyte imbalance (Acute) Complex medical condition (Chronic) Serious electrolyte imbalances, with gynecomastia, possible MEN Dx, CKD and anemia with baseline anxiety and Hx PTSD. CKD (chronic kidney disease) stage 2, GFR 60-89 ml/min (Acute) GFR 64-65, with Hx FLORESITA and GFR < 45 Gynecomastia, male (Acute) b/l, per CT (Jul 2022).. Possible 2' Methadone, Clnzpm (?). Surg eval (+)/No further action. Left arm numbness (Acute) Medical History Hypocalcemia Anxiety Depression Hyperlipidemia Family history of multiple endocrine neoplasia, type 1 PTSD (post-traumatic stress disorder) Surgical History H/O parathyroidectomy Family History Mother Anxiety Asthma Depression Sister Anxiety Depression Father Cancer lung & stomach Depression Diabetes Hypertension MEN 1 (multiple endocrine neoplasia) Social History Smoking/Tobacco Use Status: Never Smoking risk assessment performed?: Yes Alcohol Intake: never Drug use: Rarely Substance use type: does not use and former substance user Details: Relapse w/ snorting 'small amount' of heroin 03/20/23 per pt Adopted: No Caregiver/Support person: No Foster care: No Household members: none Housing: apartment Number of Children: 0 Communication Needs: None Education Level: high school Do you need help understanding health information?: Never 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 and animals: Yes (Ally) Pets and animals: dog(s) Sexually active: No Do you think of yourself as: straight/heterosexual Current gender identity: male What is your relationship status?: How often do you talk on the phone with friends or family?: twice per week How often do you get together with friends or relatives?: never Do you belong to any clubs or organized social groups?: no Panel score (0-1 are the most socially isolated patients): 0 What type of physical activity do you participate in: walking Duration: 15-30 minutes/day Frequency: 5-6 times per week Maryam/Episcopalian: Anabaptist Special maryam needs: No Seatbelt use: always Helmet use: Yes Helmet use: always Drive 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 residential recycle 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 Course Vital Signs Vital signs: Vital Signs Temperature 36.8 C 06/08/23 09:31 Pulse 99 H 06/08/23 09:31 Respiratory Rate 18 06/08/23 09:31 Blood Pressure 131/67 06/08/23 09:31 Pulse Oximetry 98 06/08/23 09:31 Temperature 36.8 C 06/08/23 09:31 Temperature Source Oral 06/08/23 09:31 Pulse 99 H 06/08/23 09:31 Respiratory Rate 18 06/08/23 09:31 Respiratory Effort Normal, Non-Labored 06/08/23 09:37 Blood Pressure 131/67 06/08/23 09:31 Pulse Oximetry 98 06/08/23 09:31 Oxygen Delivery Method Room Air 06/08/23 09:31 Oxygen Flow Rate 0 06/08/23 09:31
[2023-06-08 10:01] VITALS: BP 126/69; PULSE 88; PULSE 91; RESP 11; O2SAT 93
[2023-06-08] MEDS: FAMOTIDINE 20 MG in Normal Saline 100 ML 400 MG IVPB (10:06)
[2023-06-08] MEDS: Acetaminophen 325 MG TAB 1000 MG PO (10:07)
[2023-06-08 10:09] LABS: Abs Immature Grans 0.02 10^3/uL (0.0-0.06); Absolute Basophil Count 0.03 10^3/uL (0.0-0.2); Absolute Eosinophil Count 0.17 10^3/uL (0.0-0.7); Absolute Lymphocyte Count 1.58 10^3/uL (1.2-3.4); Absolute Monocyte Count 0.53 10^3/uL (0.1-0.8); Absolute Neutrophil Count 4.61 10^3/uL (1.2-6.7); Basophils % 0.4; Eosinophils % 2.4; HCT 35.6 % (40.0-50.0); HGB 12.1 g/dL (13.5-17.5); Immature Grans % 0.3; Lymphocytes % 22.8; MCH 30.8 pg (27.0-33.0); MCV 91 fL (80-95); MPV 10.3 fL (8.0-11.0); Monocytes % 7.6; Neutrophils % 66.5; Platelet Count 266 10^3/uL (130-400); RBC 3.93 10^6/uL (4.36-5.78); RDW 12.9 % (11.8-14.1); RDW-SD 42.5 fL; WBC 6.94 10^3/uL (4.4-10.8)
[2023-06-08 10:24] LABS: ALT 44 U/L (16-63); AST 28 U/L (15-37); Albumin 3.2 g/dL (3.4-5.0); Alkaline Phosphatase 106 U/L (46-116); Anion Gap 5.3 mmol/L (3-11); BUN 21 mg/dL (7-18); Bilirubin, Total 0.3 mg/dL (0.2-1.0); CO2 33.7 mmol/L (21.0-32.0); CREATININE 1.7 mg/dL (0.70-1.30); Chloride 100 mmol/L (98-107); Estimated GFR 55.27 (mL/min/1.73m2); Glucose 120 mg/dL (74-106); Lipase 23 U/L (16-77); Potassium 3.7 mmol/L (3.5-5.1); Sodium 139 mmol/L (136-145); Total Protein 7.5 g/dL (6.4-8.2)
[2023-06-08 10:31] VITALS: BP 110/69; PULSE 75; PULSE 81; RESP 12; O2SAT 93
[2023-06-08 10:47] VITALS: BP 120/75; PULSE 81; PULSE 87; RESP 16; O2SAT 96
--- NOTE | 2023-06-08 10:59 | DI.VRAD_ITS ---
PROCEDURE INFORMATION: Exam: XR Chest Exam date and time: 06/08/2023 10:42 AM Age: 27 years old Clinical indication: Other: Epigastric pain TECHNIQUE: Imaging protocol: Radiologic exam of the chest. Views: 2 views. COMPARISON: CR XR CHEST 2V PA LATERAL 05/25/2023 7:37 PM FINDINGS: Lungs: No acute airspace disease. Pleural spaces: No pleural effusion. Heart/Mediastinum: No cardiomegaly. Bones/joints: Unremarkable. When correlating with the previous study, no significant interval changes are present. IMPRESSION: No acute airspace or pleural disease. Dictated and Authenticated by: Tonny Dougherty MD. Ordering:JOYCE Arvizu MD
[2023-06-08 11:01] VITALS: BP 117/74; PULSE 84; PULSE 85; RESP 12; O2SAT 96
--- NOTE | 2023-06-08 14:21 | NUR.NOTE ---
Referral faxed to [facility] for cholelithiasis/ persistent abd pain; within next 2 weeks. Nursing Note:
== END 2023-06-08 11:19 | disposition home or self-care (01) ==
PROVIDERS: Emergency Provider Physician Assistant; PCP Family Medicine
DX: R10.9 Unspecified abdominal pain (principal)
CPT/HCPCS: 80053; 83690; 93005; 96365; 99284; 71046; 85025; 93010

== ENCOUNTER 2023-06-09 17:49 | Emergency (ER) | payer OTHER, SELFPAY ==
[2023-06-09 17:52] VITALS: BP 120/75; PULSE 93; RESP 20; TEMP 37.5; O2SAT 100
--- NOTE | 2023-06-09 17:59 | ED.GENADUL_ITS ---
Discharge Plan Disposition Patient Disposition: Home Discharge Details Clinical Impression: Abdominal pain, Cholelithiases Primary Care Provider: Brendon Vivar ED Provider: Crow Gama Home Meds and New Rx's Prescriptions: Continued methadone 10 mg/5 mL solution 100 mg PO QAM magnesium gluconate 27 mg magnesium (500 mg) tablet 27 mg PO BID Qty: 60 3RF clonazepam 1 mg tablet 1 mg PO BID Qty: 56 1RF calcitriol 0.5 mcg capsule 0.5 mcg PO BID Qty: 360 3RF Hold Instructions: Resume on 06/15/22. cyclobenzaprine 10 mg tablet 10 mg PO TID PRN (Reason: muscle spasm) Qty: 30 3RF diclofenac sodium 1 % gel 4 g topical QID Qty: 100 6RF Rx Instructions: apply to single knee, ankle, foot; for foot includes sole/toes/top of foot pantoprazole [Protonix] [address] for susp in packet 40 mg PO DAILY Qty: 30 0RF amitriptyline 50 mg tablet 50 mg PO QHS Qty: 60 1RF calcium carbonate [Tums] 200 mg calcium (500 mg) tablet,chewable 2,000 mg PO BID Hold Instructions: Resume on 05/12/23. Please hold your nightly dose tonight and your a.m. dose tomorrow morning. gabapentin 300 mg capsule 300 mg PO BID doxycycline hyclate 100 mg tablet 100 mg PO BID Discharge Instructions Instructions: Abdominal Pain (ED) Additional Instructions: Continue to take your normally prescribed medications. You may slowly advance your diet as tolerated but avoid heavy, greasy and fatty foods as this may worsen your symptoms. Return to the emergency department for any new or significant worsening symptoms otherwise follow-up with your primary care provider or general surgery group for reassessment of your gallbladder Referrals: [facility] [Provider Group] - 1 week (Call the office for arrangement of follow-up appointment) Medical Decision Making Patient presenting the emergency department for chief complaint of right upper quadrant abdominal pain. Patient reports that this started the morning after having hearty dinner at his grandparents and eating foods that he normally does not eat. Patient states history of cholelithiasis and was seen here in the emergency department yesterday and had x-ray and labs performed. He reports that he is post have his gallbladder out at [facility] on July 02 but does not know if he can wait for that due to the pain and discomfort. Physical exam shows tender right upper quadrant abdomen, no positive Cedillo sign at this time patient not febrile, normotensive, not tachycardic. Patient with significant past medical history of PTSD, significant health anxiety, parathyroidectomy, with hypocalcemia, and cholelithiasis. Will plan on checking patient's labs. Patient has had multiple CT imaging sometimes showing cholelithiasis sometimes not so at this time will treat patient's pain with Toradol and fluids and reassess after labs. Reviewed patient's labs and patient does have a stable anemia, normal lactate at 0.6, CMP with slightly elevated BUN and creatinine and low albumin otherwise all other values within normal limits. Urinalysis completely negative. Reassessed patient and he did state improvement of his overall symptoms. Initially discussed returning tomorrow morning for ultrasound of right upper quadrant as I feel this would be better modality especially given reassuring labs. Was able to confirm that we had fish and wildlife technician and department this evening so ultrasound was ordered. Ultrasound shows Cholelithiasis without sonographic evidence of cholecystitis or biliary obstruction. CBD upper limits of normal for age at 5 mm. Consider MRCP to assess distal portions if clinically indicated. Fatty liver. I do feel that given patient's reassuring labs and no signs of cholecystitis or obstruction I do feel that patient can be discharged to follow-up with general surgery at [place]. When discussing this with patient patient wondering about following up with general surgery here. I could not confirm with him timeframe that he could have his gallbladder taken out here but he inform me that he was referred by provider yesterday and I do feel that if he would like a second opinion that that is appropriate. After discussion of diagnosis and plan of care patient has no further needs, questions, or concerns and states clear understanding to ret urn to the emergency department for any worsening symptoms. This documentation was generated using Jenn Rykert dictation system, please disregard any oddities of phrase or misspellings. Imaging Data Radiologic Study: Imaging: Ultrasound Radiologist's impression: Exam(s) PROCEDURE INFORMATION: Exam: US Abdomen, Limited; Right Upper Quadrant Exam date and time: 06/09/2023 8:19 PM Age: 27 years old Clinical indication: Abdominal pain TECHNIQUE: Imaging protocol: Real time ultrasound of the abdomen with image documentation. Limited exam focused on the right upper quadrant. COMPARISON: US ABDOMEN LIMITED 02/15/2023 9:27 AM FINDINGS: Liver: Fatty liver; no gross mass lesions allowing for increased echogenicity. Gallbladder: Multifocal stones and sludge in the gallbladder. No gallbladder wall thickening. No pericholecystic edema. Biliary ducts: CBD upper limits of normal for age at 5 mm. No stones in the visualized upper portion. Pancreas: Suboptimal visualization of the pancreas due to bowel gas. Right kidney: No hydronephrosis or significant stones. Portal venous: Normal forward flow in the main portal vein. IMPRESSION: 1. Cholelithiasis without sonographic evidence of cholecystitis or biliary obstruction. 2. CBD upper limits of normal for age at 5 mm. Consider MRCP to assess distal portions if clinically indicated. 3. Fatty liver. Lab Data Lab results reviewed: Yes I reviewed the patient's lab results. HPI General Mode of arrival: ambulatory . Date/Time Provider Initiated Documentation: 06/09/23 17:49 . Limitations to Documentation: no limitations . Information obtained by: patient and RN notes reviewed . History of Present Illness 27 year old M presents to the emergency department with the chief complaint of Right upper quadrant abdominal pain, described as moderate, severe and similar to prior episodes, and is localized to the abdomen. Patient started experiencing this day(s) (1) and it has been constant. No relieving factors improve symptom(s), Patient did receive the following treatments prior to arrival, none Related Data Home Medications Medication Instructions Recorded Confirmed methadone 10 mg/5 mL oral solution 100 mg PO QAM 11/16/21 06/09/23 magnesium gluconate 27 mg 27 mg PO BID #60 tabs 11/08/22 06/09/23 magnesium (500 mg) tablet calcium carbonate 200 mg calcium 2,000 mg PO BID 02/02/23 06/09/23 (500 mg) chewable tablet (Tums) gabapentin 300 mg capsule 300 mg PO BID 02/02/23 06/09/23 calcitriol 0.5 mcg capsule 0.5 mcg PO BID #360 caps 04/21/23 06/09/23 clonazepam 1 mg tablet 1 mg PO BID #56 tabs 04/21/23 06/09/23 cyclobenzaprine 10 mg tablet 10 mg PO TID PRN muscle spasm #30 04/21/23 06/09/23 tabs diclofenac sodium 1 % topical gel 4 g topical QID #100 grams 04/21/23 06/09/23 pantoprazole 40 mg granules 40 mg PO DAILY #30 ea 05/19/23 06/09/23 delayed-release for susp in packet (Protonix) amitriptyline 50 mg tablet 50 mg PO QHS #60 tabs 05/26/23 06/09/23 doxycycline hyclate 100 mg tablet 100 mg PO BID 06/06/23 06/09/23 Previous Rx's Medication Instructions Recorded magnesium gluconate 27 mg 27 mg PO BID #60 tabs 11/08/22 magnesium (500 mg) tablet calcitriol 0.5 mcg capsule 0.5 mcg PO BID #360 caps 04/21/23 clonazepam 1 mg tablet 1 mg PO BID #56 tabs 04/21/23 cyclobenzaprine 10 mg tablet 10 mg PO TID PRN muscle spasm #30 04/21/23 tabs diclofenac sodium 1 % topical gel 4 g topical QID #100 grams 04/21/23 pantoprazole 40 mg granules 40 mg PO DAILY #30 ea 05/19/23 delayed-release for susp in packet (Protonix) amitriptyline 50 mg tablet 50 mg PO QHS #60 tabs 05/26/23 Allergies Allergy/AdvReac Type Severity Reaction Status Date / Time codeine Allergy Intermediate pass out Verified 06/09/23 17:58 Penicillins Allergy Skin Rash Verified 06/09/23 17:58 amoxicillin AdvReac Intermediate Nausea Verified 06/09/23 17:58 dextromethorphan AdvReac Intermediate Other (See Verified 06/09/23 17:58 [From NyQuil] Comment) doxylamine [From NyQuil] AdvReac Intermediate Other (See Verified 06/09/23 17:58 Comment) pseudoephedrine [From NyQuil] AdvReac Intermediate Other (See Verified 06/09/23 17:58 Comment) General Stated Complaint: Abd Prob ADRIANA: 3 Review of Systems Constitutional Constitutional: Denies chills and Denies fever(s) Cardiovascular Cardiovascular: Denies chest pain and Denies dyspnea Respiratory Respiratory: Denies dyspnea Gastrointestinal Gastrointestinal: Reports as per HPI, Reports abdominal pain, Denies hematochezia, Denies diarrhea, Reports nausea, Denies vomiting and Denies hematemesis Genitourinary Genitourinary: Denies dysuria Musculoskeletal Musculoskeletal: Denies back pain PFSH All Active Problems (Updated 06/09/23 @ 20:04 by Crow Gama NP) Cholelithiasis (Acute) Abdominal pain (Acute) Hemoptysis (Acute) Lump of breast, left (Acute) Anxiety about health (Acute) Jaw pain (Acute) Cellulitis (Acute) Panic attack (Acute) Rash (Acute) Bronchitis (Acute) Fatigue (Acute) Abdominal discomfort, generalized (Acute) Arthralgia of left shoulder region (Acute) Side effect of drug (Acute) Brachial plexus neuropathy (Acute) Hypercalcemia (Acute) Pharyngitis (Acute) Cholelithiases (Acute) 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 (Acute) Inflammatory arthritis (Acute) Costochondritis (Acute 12/13/22) [facility] Cellulitis (Acute) Severe anxiety with panic (Chronic) Family history of coronary arteriosclerosis (Chronic) Father of DC at 50, mother had DC at 42 Elevated parathyroid hormone (Acute) Suicidal ideation (Acute) Depression (Chronic) Hypocalcemia (Chronic) Hypomagnesemia (Chronic) Depression (Chronic) Primary hyperparathyroidism (Chronic) Chronic constipation (Chronic) Multiple endocrine neoplasia type I (Chronic) Iatrogenic hypocalcemia (Acute) Abdominal pain (Acute) Common bile duct dilatation (Acute) Intrahepatic bile duct dilation (Acute) Abnormal CT scan, kidney (Acute) Sphincter of Oddi dysfunction (Chronic) Therapeutic opioid induced constipation (Acute) Pulmonary nodule 1 cm or greater in diameter (Chronic) Neck pain on left side (Acute) with shoulder, upper back pain.. torticollis, radiating into left hip/leg History of electrolyte imbalance (Acute) Complex medical condition (Chronic) Serious electrolyte imbalances, with gynecomastia, possible MEN Dx, CKD and anemia with baseline anxiety and Hx PTSD. CKD (chronic kidney disease) stage 2, GFR 60-89 ml/min (Acute) GFR 64-65, with Hx FLORESITA and GFR < 45 Gynecomastia, male (Acute) b/l, per CT (Jul 2022).. Possible 2' Methadone, Clnzpm (?). Surg eval (+)/No further action. Left arm numbness (Acute) Medical History Hypocalcemia Anxiety Depression Hyperlipidemia Family history of multiple endocrine neoplasia, type 1 PTSD (post-traumatic stress disorder) Surgical History H/O parathyroidectomy Family History Mother Anxiety Asthma Depression Sister Anxiety Depression Father Cancer lung & stomach Depression Diabetes Hypertension MEN 1 (multiple endocrine neoplasia) Social History Smoking/Tobacco Use Status: Never Smoking risk assessment performed?: Yes Alcohol Intake: never Drug use: Rarely Substance use type: does not use and former substance user Details: Relapse w/ snorting 'small amount' of heroin 03/20/23 per pt Adopted: No Caregiver/Support person: No Foster care: No Household members: none Housing: apartment Number of Children: 0 Communication Needs: None Education Level: high school Do you need help understanding health information?: Never 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 and animals: Yes (Ally) Pets and animals: dog(s) Sexually active: No Do you think of yourself as: straight/heterosexual Current gender identity: male What is your relationship status?: How often do you talk on the phone with friends or family?: twice per week How often do you get together with friends or relatives?: never Do you belong to any clubs or organized social groups?: no Panel score (0-1 are the most socially isolated patients): 0 What type of physical activity do you participate in: walking Duration: 15-30 minutes/day Frequency: 5-6 times per week Maryam/Confucianist: Jainism Special maryam needs: No Seatbelt use: always Helmet use: Yes Helmet use: always Drive 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 Do you feel safe at home: Yes Do you feel safe in your relationship?: Yes Additional Social history: on methadone Exam Const General: cooperative Orientation: alert, awake and oriented x3 Resp Effort & Inspection: normal respiratory effort and able to speak in complete sentences Auscultation: clear to auscultation bilaterally Cardio Rate: regular rate Rhythm: regular rhythm Heart Sounds: S1 normal and S2 normal GI Palpation: soft, not firm, no guarding, no masses, no pulsatile masses, not rigid and tender in the RUQ and psoas sign positive; Cedillo's sign negative and Rovsing's sign negative Auscultation: normal bowel sounds Back/Spine/Pelvis Back: no CVA tenderness Neuro General: patient alert, patient awake, patient oriented x3, gait normal and moves all extremities Course Vital Signs Vital signs: Vital Signs Temperature 37.5 C 06/09/23 17:52 Pulse 93 H 06/09/23 17:52 Respiratory Rate 20 06/09/23 17:52 Blood Pressure 120/75 06/09/23 17:52 Pulse Oximetry 100 06/09/23 17:52 Temperature 37.5 C 06/09/23 17:52 Temperature Source Skin 06/09/23 17:52 Pulse 93 H 06/09/23 17:52 Respiratory Rate 20 06/09/23 17:52 Blood Pressure 120/75 06/09/23 17:52 Blood Pressure Position Supine 06/09/23 17:52 Pulse Oximetry 100 06/09/23 17:52 Oxygen Delivery Method Room Air 06/09/23 17:52 Oxygen Flow Rate 0 06/09/23 17:52 Pain Level 7 06/09/23 17:52
[2023-06-09] MEDS: Normal Saline 1,000 ML 1000 ML IV (18:58)
[2023-06-09 18:59] LABS: Abs Immature Grans 0.01 10^3/uL (0.0-0.06); Absolute Basophil Count 0.03 10^3/uL (0.0-0.2); Absolute Eosinophil Count 0.18 10^3/uL (0.0-0.7); Absolute Lymphocyte Count 2.05 10^3/uL (1.2-3.4); Absolute Monocyte Count 0.88 10^3/uL (0.1-0.8); Absolute Neutrophil Count 3.08 10^3/uL (1.2-6.7); Basophils % 0.5; Eosinophils % 2.9; HCT 31.6 % (40.0-50.0); HGB 10.6 g/dL (13.5-17.5); Immature Grans % 0.2; Lactate 0.6 mmol/L (0.6-1.4); Lymphocytes % 32.9; MCH 30.8 pg (27.0-33.0); MCHC 33.5 % (32.0-36.0); MCV 92 fL (80-95); MPV 10.3 fL (8.0-11.0); Monocytes % 14.1; Neutrophils % 49.4; Platelet Count 241 10^3/uL (130-400); RBC 3.44 10^6/uL (4.36-5.78); RDW 12.9 % (11.8-14.1); RDW-SD 42.3 fL; WBC 6.23 10^3/uL (4.4-10.8)
[2023-06-09] MEDS: Ondansetron O.D.T. 4 MG TABEF PO (19:00)
[2023-06-09] MEDS: Ketorolac 15 MG/ML VIAL IVP (19:00)
[2023-06-09 19:19] LABS: ALT 35 U/L (16-63); AST 23 U/L (15-37); Albumin 3.1 g/dL (3.4-5.0); Alkaline Phosphatase 93 U/L (46-116); Anion Gap 4.1 mmol/L (3-11); BUN 20 mg/dL (7-18); Bilirubin, Total 0.3 mg/dL (0.2-1.0); CO2 33.9 mmol/L (21.0-32.0); CREATININE 1.8 mg/dL (0.70-1.30); Calcium 8.5 mg/dL (8.5-10.1); Chloride 102 mmol/L (98-107); Estimated GFR 51.61 (mL/min/1.73m2); Glucose 91 mg/dL (74-106); Lipase 25 U/L (16-77); Potassium 3.8 mmol/L (3.5-5.1); Sodium 140 mmol/L (136-145)
[2023-06-09 19:59] LABS: Bilirubin Negative (Negative); Blood Negative (Negative); Clarity Clear (Clear); Glucose Negative (Negative); Ketones Negative (Negative); Leukocyte Esterase Negative (Negative); Nitrite Negative (Negative); Specific Gravity 1.015 (1.005-1.025); Urobilinogen 0.2 mg/dL (Up to 0.2)
--- NOTE | 2023-06-09 20:15 | DI.US_ITS ---
Exam(s) US ABDOMEN LIMITED EXAM: US ABDOMEN LIMITED CLINICAL HISTORY: Right upper quadrant pain, history of cholelithias TECHNIQUE: Ultrasound abdomen performed using standard protocol. COMPARISON: Limited abdomen ultrasound from 09/07/[address] CHEST WO from 10/03/2022 FINDINGS: Limited exam due to bowel gas. Portions of the liver are not well seen. LIVER: Mildly enlarged. No focal liver lesions are seen. GALLBLADDER: Mobile stones. No evidence of wall thickening. No pericholecystic fluid identified. GUERRA'S SIGN: Negative. BILIARY SYSTEM: 5 millimeters, mildly enlarged for the patient's age. No common duct stone visible. Right KIDNEY: Normal size. No evidence of renal calculi. No evidence of hydronephrosis. No renal mas s or cyst identified. PANCREAS: Tail not visualized. Show are by bowel gas. ABDOMINAL AORTA AND IVC: Visualized portions normal caliber. ASCITES: None seen. IMPRESSION: Cholelithiasis. No evidence of acute cholecystitis. DATA REPOSITORY:
[2023-06-09 21:24] VITALS: BP 88/53; PULSE 72; RESP 18; O2SAT 99
--- NOTE | 2023-06-09 21:28 | DI.VRAD_ITS ---
PROCEDURE INFORMATION: Exam: US Abdomen, Limited; Right Upper Quadrant Exam date and time: 06/09/2023 8:19 PM Age: 27 years old Clinical indication: Abdominal pain TECHNIQUE: Imaging protocol: Real time ultrasound of the abdomen with image documentation. Limited exam focused on the right upper quadrant. COMPARISON: US ABDOMEN LIMITED 02/15/2023 9:27 AM FINDINGS: Liver: Fatty liver; no gross mass lesions allowing for increased echogenicity. Gallbladder: Multifocal stones and sludge in the gallbladder. No gallbladder wall thickening. No pericholecystic edema. Biliary ducts: CBD upper limits of normal for age at 5 mm. No stones in the visualized upper portion. Pancreas: Suboptimal visualization of the pancreas due to bowel gas. Right kidney: No hydronephrosis or significant stones. Portal venous: Normal forward flow in the main portal vein. IMPRESSION: 1. Cholelithiasis without sonographic evidence of cholecystitis or biliary obstruction. 2. CBD upper limits of normal for age at 5 mm. Consider MRCP to assess distal portions if clinically indicated. 3. Fatty liver. Dictated and Authenticated by: Raegan Khoury MD. Ordering:ANDREW Maria MD
[2023-06-09 21:58] VITALS: BP 114/73; PULSE 84; RESP 16; O2SAT 96
== END 2023-06-09 21:59 | disposition home or self-care (01) ==
LOC: ER 21:51
PROVIDERS: Emergency Provider Nurse Practitioner Family; PCP Family Medicine
DX: R10.11 Right upper quadrant pain (principal); K80.20 Calculus of gallbladder without cholecystitis without obstruction
CPT/HCPCS: 80053; 83690; 96361; 96374; 99284; 76705; 81003; 83605; 83735; 85025; J1885

== ENCOUNTER 2023-06-11 10:14 | Emergency (ER) | payer OTHER, SELFPAY ==
[2023-06-11 10:15] VITALS: BP 137/79; PULSE 108; RESP 18; TEMP 36.6; O2SAT 99
--- NOTE | 2023-06-11 10:19 | ED.GENADUL_ITS ---
Discharge Plan Disposition Patient Disposition: Home Condition: Stable Discharge Details Clinical Impression: Abdominal pain in male Primary Care Provider: Brendon Vivar ED Provider: Richy Oakes Home Meds and New Rx's Prescriptions: Continued methadone 10 mg/5 mL solution 100 mg PO QAM magnesium gluconate 27 mg magnesium (500 mg) tablet 27 mg PO BID Qty: 60 3RF clonazepam 1 mg tablet 1 mg PO BID Qty: 56 1RF calcitriol 0.5 mcg capsule 0.5 mcg PO BID Qty: 360 3RF Hold Instructions: Resume on 06/15/22. cyclobenzaprine 10 mg tablet 10 mg PO TID PRN (Reason: muscle spasm) Qty: 30 3RF diclofenac sodium 1 % gel 4 g topical QID Qty: 100 6RF Rx Instructions: apply to single knee, ankle, foot; for foot includes sole/toes/top of foot pantoprazole [Protonix] [address] for susp in packet 40 mg PO DAILY Qty: 30 0RF amitriptyline 50 mg tablet 50 mg PO QHS Qty: 60 1RF calcium carbonate [Tums] 200 mg calcium (500 mg) tablet,chewable 2,000 mg PO BID Hold Instructions: Resume on 05/12/23. Please hold your nightly dose tonight and your a.m. dose tomorrow morning. gabapentin 300 mg capsule 300 mg PO BID Discharge Instructions Instructions: Abdominal Pain (ED) Additional Instructions: You were seen in the emergency department for your right-sided abdominal pain, I suspect the lower abdominal pain is a muscle strain of the abdomen, the area of a bump you feel in your right upper quadrant is just the normal anatomical border of your liver, your pain is in the lower right ribs. The labs show no elevation of liver, gallbladder or pancreas enzymes. I do not suspect you have a gallstone stuck anywhere in your bile duct. You have a surgical appointment at 10 AM tomorrow I suggest you continue with that plan. Keep taking Tylenol and ibuprofen as needed for pain, you can try your diclofenac gel on the areas of pain for anti-inflammatory effect. Please return for any severe increase in pain with fever, intractable nausea or vomiting. Referrals: [facility] [Provider Group] Brendon Vivar DO [Primary Care Provider] - Discharge Data Discharge Date/Time-TO BE ENTERED AT DEPARTURE: 06/11/23 11:39 Medical Decision Making This dictation utilizes [id number] dictation software and may contain unedited grammatical errors. 27 y/o M, >100 ED visits this year, presents to ED today with a chief complaint of acute on chronic abdominal pain, onset on Friday (), states he has an appointment with surgery tomorrow at 1000 for consult on cholecystectomy, endorses nausea/vomiting yesterday, denies fever/bowel changes. Patient has not eaten yet today, has taken Tylenol. Patients' medical history: anxiety. Family and social history: smoker, former substance use. Pertinent exam findings / vital signs include RUQ tenderness without peritoneal signs, vitals stable, benign cardiopulmonary status. Differential / pathologies of concern include anxiety, hyperalgia, biliary colic. Diagnostic studies of: -CBC, CMP, Mg++, Lipase, Liver Panel, UA. Interventions of: -PO Zofran, PO Mylanta, IM Toradol. ED Course/Assessment/Plan: 27-year-old male presents with acute on chronic abdominal pain, has appointment surgery to discuss possible elective cholecystectomy tomorrow, he presents frequently with various complaints in the department with at least 100 visits this year. Patient has no elevation of white blood cells, lipase within normal limits, liver panel within normal limits, magnesium and electrolytes no abnormality, urine is benign, I do not suspect any acute emergent pathology I do suspect that the patient has significant health anxiety and that any radiating study today would be likely unnecessary with his close follow-up tomorrow. Findings not consistent with sepsis, choledocholithiasis, SBO, febrile illness, patient likely has musculoskeletal abdominal and rib pain. Disposition of Abdominal Pain in Male. Patient verbalized understanding of the plan and return to ED criteria and engaged in shared decision making. Medical Records Medical records reviewed: Yes I reviewed the patient's medical records. Lab Data Lab results reviewed: Yes I reviewed the patient's lab results. Labs: Laboratory Tests Range/Units 06/11/23 06/11/23 10:36 11:13 WBC (4.4-10.8) 10^3/uL 6.67 RBC (4.36-5.78) 10^6/uL 3.56 L Hgb (13.5-17.5) g/dL 11.0 L Hct (40.0-50.0) % 32.6 L MCV (80-95) fL 92 MCH (27.0-33.0) pg 30.9 MCHC (32.0-36.0) % 33.7 RDW (11.8-14.1) % 12.9 Plt Count (130-400) 10^3/uL 254 MPV (8.0-11.0) fL 10.2 Immature Gran % 0.1 Neutrophils % 65.4 Lymphocytes % 21.3 Monocytes % 10.5 Eosinophils % 2.4 Basophils % 0.3 Nucleated RBC % (0.0-0.3) % 0.0 Absolute Neutrophils (1.2-6.7) 10^3/uL 4.36 Absolute Lymphocytes (1.2-3.4) 10^3/uL 1.42 Absolute Monocytes (0.1-0.8) 10^3/uL 0.70 Absolute Eosinophils (0.0-0.7) 10^3/uL 0.16 Absolute Basophils (0.0-0.2) 10^3/uL 0.02 Sodium (136-145) mmol/L 142 Potassium (3.5-5.1) mmol/L 3.7 Chloride (98-107) mmol/L 104 Carbon Dioxide (21.0-32.0) mmol/L 31.5 Anion Gap (3-11) mmol/L 6.5 BUN (7-18) mg/dL 19 H Creatinine (0.70-1.30) mg/dL 1.6 H Est GFR (CKD-EPI 2020) (mL/min/1.73m2) 59.44 Glucose (74-106) mg/dL 123 H Calcium (8.5-10.1) mg/dL 8.2 L Magnesium (1.8-2.4) mg/dL 1.8 Total Bilirubin (0.2-1.0) mg/dL 0.3 Conjugated Bilirubin (0.0-0.2) mg/dL 0.1 AST (15-37) U/L 17 ALT (16-63) U/L 28 Alkaline Phosphatase (46-116) U/L 88 Total Protein (6.4-8.2) g/dL 7.1 Albumin (3.4-5.0) g/dL 3.1 L Lipase (16-77) U/L 25 Urine Color (Yellow) Yellow Urine Clarity (Clear) Clear Urine pH (5-8) 7.5 Ur Specific [place] (1.005-1.025) 1.020 Urine Protein (Negative) mg/dL Negative Urine Ketones (Negative) mg/dL Negative Urine Blood (Negative) Negative Urine Nitrite (Negative) Negative Urine Bilirubin (Negative) Negative Urine Urobilinogen (Up to 0.2) mg/dL 0.2 Ur Leukocyte Esterase (Negative) Negative Urine Glucose (Negative) mg/dL Negative HPI General Date/Time Provider Initiated Documentation: 06/11/23 10:14 . HPI Narrative: 27 year-old male, well-known to the ED presents to ED today by POV/ambulating with a chief complaint of RUQ abdominal pain, onset the - surgical consult appointment tomorrow at 1000 for possible elective cholecystectomy. Patient describes an abnormal bump in his RUQ and is palpating his lower ribs as source of pain, he also endorses periumbilical R sided abdominal pain thats worse with moving his legs, localizing to abdominal wall. Quality described as stabbing, no radiation to black/tarry stools, endorses nausea/vomiting yesterday, poor PO intake today, denies fevers/chest pain/shortness of breath. Severity is described as moderate. Palliating factors include nothing specific. Provoking factors include nothing specific- high health anxiety. Events leading up to the incident/Associated Symptoms: Patient has presented to ED > 100 times this year. Patient not anticoagulated. Related Data Home Medications Medication Instructions Recorded Confirmed methadone 10 mg/5 mL oral solution 100 mg PO QAM 11/16/21 06/11/23 magnesium gluconate 27 mg 27 mg PO BID #60 tabs 11/08/22 06/11/23 magnesium (500 mg) tablet calcium carbonate 200 mg calcium 2,000 mg PO BID 02/02/23 06/11/23 (500 mg) chewable tablet (Tums) gabapentin 300 mg capsule 300 mg PO BID 02/02/23 06/11/23 calcitriol 0.5 mcg capsule 0.5 mcg PO BID #360 caps 04/21/23 06/11/23 clonazepam 1 mg tablet 1 mg PO BID #56 tabs 04/21/23 06/11/23 cyclobenzaprine 10 mg tablet 10 mg PO TID PRN muscle spasm #30 04/21/23 06/11/23 tabs diclofenac sodium 1 % topical gel 4 g topical QID #100 grams 04/21/23 06/11/23 pantoprazole 40 mg granules 40 mg PO DAILY #30 ea 05/19/23 06/11/23 delayed-release for susp in packet (Protonix) amitriptyline 50 mg tablet 50 mg PO QHS #60 tabs 05/26/23 06/11/23 Previous Rx's Medication Instructions Recorded magnesium gluconate 27 mg 27 mg PO BID #60 tabs 11/08/22 magnesium (500 mg) tablet calcitriol 0.5 mcg capsule 0.5 mcg PO BID #360 caps 04/21/23 clonazepam 1 mg tablet 1 mg PO BID #56 tabs 04/21/23 cyclobenzaprine 10 mg tablet 10 mg PO TID PRN muscle spasm #30 04/21/23 tabs diclofenac sodium 1 % topical gel 4 g topical QID #100 grams 04/21/23 pantoprazole 40 mg granules 40 mg PO DAILY #30 ea 05/19/23 delayed-release for susp in packet (Protonix) amitriptyline 50 mg tablet 50 mg PO QHS #60 tabs 05/26/23 Allergies Allergy/AdvReac Type Severity Reaction Status Date / Time codeine Allergy Intermediate pass out Verified 06/11/23 10:17 Penicillins Allergy Skin Rash Verified 06/11/23 10:17 amoxicillin AdvReac Intermediate Nausea Verified 06/11/23 10:17 dextromethorphan AdvReac Intermediate Other (See Verified 06/11/23 10:17 [From NyQuil] Comment) doxylamine [From NyQuil] AdvReac Intermediate Other (See Verified 06/11/23 10:17 Comment) pseudoephedrine [From NyQuil] AdvReac Intermediate Other (See Verified 06/11/23 10:17 Comment) General Stated Complaint: Abd Prob ADRIANA: 3 Review of Systems All systems reviewed & are unremarkable except as noted in HPI and below PFSH All Active Problems (Updated 06/11/23 @ 11:32 by ANDREW Coleman) Abdominal pain in male (Acute) Cholelithiasis (Acute) Abdominal pain (Acute) Hemoptysis (Acute) Lump of breast, left (Acute) Anxiety about health (Acute) Jaw pain (Acute) Cellulitis (Acute) Panic attack (Acute) Rash (Acute) Bronchitis (Acute) Fatigue (Acute) Abdominal discomfort, generalized (Acute) Arthralgia of left shoulder region (Acute) Side effect of drug (Acute) Brachial plexus neuropathy (Acute) Cholelithiases (Acute) 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 (Acute) Inflammatory arthritis (Acute) Costochondritis (Acute 12/13/22) [facility] Cellulitis (Acute) Severe anxiety with panic (Chronic) Family history of coronary arteriosclerosis (Chronic) Father of ND at 50, mother had ND at 42 Elevated parathyroid hormone (Acute) Suicidal ideation (Acute) Depression (Chronic) Hypocalcemia (Chronic) Hypomagnesemia (Chronic) Depression (Chronic) Primary hyperparathyroidism (Chronic) Chronic constipation (Chronic) Multiple endocrine neoplasia type I (Chronic) Iatrogenic hypocalcemia (Acute) Abdominal pain (Acute) Common bile duct dilatation (Acute) Intrahepatic bile duct dilation (Acute) Abnormal CT scan, kidney (Acute) Sphincter of Oddi dysfunction (Chronic) Therapeutic opioid induced constipation (Acute) Pulmonary nodule 1 cm or greater in diameter (Chronic) Neck pain on left side (Acute) with shoulder, upper back pain.. torticollis, radiating into left hip/leg History of electrolyte imbalance (Acute) Complex medical condition (Chronic) Serious electrolyte imbalances, with gynecomastia, possible MEN Dx, CKD and anemia with baseline anxiety and Hx PTSD. CKD (chronic kidney disease) stage 2, GFR 60-89 ml/min (Acute) GFR 64-65, with Hx FLORESITA and GFR < 45 Gynecomastia, male (Acute) b/l, per CT (Jul 2022).. Possible 2' Methadone, Clnzpm (?). Surg eval (+)/No further action. Left arm numbness (Acute) Medical History Hypocalcemia Anxiety Depression Hyperlipidemia Family history of multiple endocrine neoplasia, type 1 PTSD (post-traumatic stress disorder) Surgical History H/O parathyroidectomy Family History Mother Anxiety Asthma Depression Sister Anxiety Depression Father Cancer lung & stomach Depression Diabetes Hypertension MEN 1 (multiple endocrine neoplasia) Social History Smoking/Tobacco Use Status: Never Smoking risk assessment performed?: Yes Alcohol Intake: never Drug use: Rarely Substance use type: does not use and former substance user Details: Relapse w/ snorting 'small amount' of heroin 03/20/23 per pt Adopted: No Caregiver/Support person: No Foster care: No Household members: none Housing: apartment Number of Children: 0 Communication Needs: None Education Level: high school Do you need help understanding health information?: Never 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 and animals: Yes (Ally) Pets and animals: dog(s) Sexually active: No Do you think of yourself as: straight/heterosexual Current gender identity: male What is your relationship status?: How often do you talk on the phone with friends or family?: twice per week How often do you get together with friends or relatives?: never Do you belong to any clubs or organized social groups?: no Panel score (0-1 are the most socially isolated patients): 0 What type of physical activity do you participate in: walking Duration: 15-30 minutes/day Frequency: 5-6 times per week Maryam/Faith: Bahai Special maryam needs: No Seatbelt use: always Helmet use: Yes Helmet use: always Drive 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 driver starting gate: No Do you feel safe at home: Yes Do you feel safe in your relationship?: Yes Additional Social history: on methadone Exam Narrative Exam Narrative: GENERAL APPEARANCE: Well-nourished, non-toxic, awake and alert, atraumatic, no acute distress. SKIN: Warm, pink, dry, intact, without rashes/lesions/ulcerations. HEAD: Normocephalic, atraumatic, normal hair distribution for gender/age. EYES: Pupils PERRLA, EOMs intact without nystagmus, normal conjunctiva, no exudates on lids/lashes. ENT: Nares patent, no circumoral cyanosis, no facial swelling NECK: Supple, trachea midline, painless cervical ROM. LUNGS/CHEST: Lungs CTA bilaterally, non-labored respirations, normal A/P diameter, symmetrical expansion, no chest wall deformity, TTP R lower ribs, no crepitus HEART (CV/PV): Regular rate and rhythm without murmur, no peripheral edema, no JVD. ABDOMEN: Soft, non-distended, no guarding, diffuse tenderness RUQ, no Cedillo's sign, mild periumbilical tenderness with palpable abdominal wall muscle tension and worsening with hip flexion. MSK: Normal ROM, no swelling/deformity to bilateral UEs or LEs, moving all extremities without weakness, no cyanosis, spine midline without tenderness, normal curvature. NEURO: Mental Status AAOx4 - alert to person, place, time, events No facial droop, no forehead involvement. Motor: No focal weakness - strength 5/5 in bilateral UEs and LEs, proximal and distal, symmetric. Sensory: sensation intact to light touch globally. Gait normal: patient ambulated without ataxia into ED room. PSYCH: euthymic, cooperative, pleasant, appropriate speech Course Vital Signs Vital signs: Vital Signs Temperature 36.6 C 06/11/23 10:15 Pulse 108 H 06/11/23 10:15 Respiratory Rate 18 06/11/23 10:15 Blood Pressure 137/79 06/11/23 10:15 Pulse Oximetry 99 06/11/23 10:15 Temperature 36.6 C 06/11/23 10:15 Temperature Source Skin 06/11/23 10:15 Pulse 108 H 06/11/23 10:15 Respiratory Rate 18 06/11/23 10:15 Respiratory Effort Normal, Non-Labored 06/11/23 10:18 Blood Pressure 137/79 06/11/23 10:15 Blood Pressure Position Sitting 06/11/23 10:15 Pulse Oximetry 99 06/11/23 10:15 Oxygen Delivery Method Room Air 06/11/23 10:15 Oxygen Flow Rate 0 06/11/23 10:15 Pain Level 8 06/11/23 10:15
[2023-06-11 10:23] VITALS: BP 137/79; PULSE 108; RESP 18; TEMP 36.6; O2SAT 99
[2023-06-11] MEDS: Ketorolac 30 MG/ML VIAL IM (10:43)
[2023-06-11] MEDS: Mylanta Suspension 30 ML CUP 20 ML PO (10:43)
[2023-06-11 10:44] LABS: Abs Immature Grans 0.01 10^3/uL (0.0-0.06); Absolute Basophil Count 0.02 10^3/uL (0.0-0.2); Absolute Eosinophil Count 0.16 10^3/uL (0.0-0.7); Absolute Lymphocyte Count 1.42 10^3/uL (1.2-3.4); Absolute Neutrophil Count 4.36 10^3/uL (1.2-6.7); Basophils % 0.3; Eosinophils % 2.4; HCT 32.6 % (40.0-50.0); Immature Grans % 0.1; Lymphocytes % 21.3; MCH 30.9 pg (27.0-33.0); MCHC 33.7 % (32.0-36.0); MCV 92 fL (80-95); MPV 10.2 fL (8.0-11.0); Monocytes % 10.5; Neutrophils % 65.4; Platelet Count 254 10^3/uL (130-400); RBC 3.56 10^6/uL (4.36-5.78); RDW 12.9 % (11.8-14.1); RDW-SD 42.9 fL; WBC 6.67 10^3/uL (4.4-10.8)
[2023-06-11] MEDS: Ondansetron O.D.T. 4 MG TABEF PO (10:44)
[2023-06-11 10:58] LABS: ALT 28 U/L (16-63); AST 17 U/L (15-37); Albumin 3.1 g/dL (3.4-5.0); Alkaline Phosphatase 88 U/L (46-116); Anion Gap 6.5 mmol/L (3-11); BUN 19 mg/dL (7-18); Bilirubin, Direct 0.1 mg/dL (0.0-0.2); Bilirubin, Total 0.3 mg/dL (0.2-1.0); CO2 31.5 mmol/L (21.0-32.0); CREATININE 1.6 mg/dL (0.70-1.30); Calcium 8.2 mg/dL (8.5-10.1); Chloride 104 mmol/L (98-107); Estimated GFR 59.44 (mL/min/1.73m2); Glucose 123 mg/dL (74-106); Lipase 25 U/L (16-77); Magnesium 1.8 mg/dL (1.8-2.4); Potassium 3.7 mmol/L (3.5-5.1); Sodium 142 mmol/L (136-145); Total Protein 7.1 g/dL (6.4-8.2)
[2023-06-11 11:36] LABS: Bilirubin Negative (Negative); Blood Negative (Negative); Clarity Clear (Clear); Glucose Negative (Negative); Ketones Negative (Negative); Leukocyte Esterase Negative (Negative); Nitrite Negative (Negative); Urobilinogen 0.2 mg/dL (Up to 0.2); pH 7.5 (5-8)
[2023-06-11 11:38] VITALS: BP 137/79; PULSE 108; RESP 18; TEMP 36.6; O2SAT 99
== END 2023-06-11 11:39 | disposition home or self-care (01) ==
PROVIDERS: Emergency Provider Physician Assistant; PCP Family Medicine
DX: R10.11 Right upper quadrant pain (principal); E78.5 Hyperlipidemia, unspecified
CPT/HCPCS: 80053; 80076; 83690; 96372; 99283; 81003; 83735; 85025; J1885

== ENCOUNTER 2023-06-12 17:50 | Outpatient (CLI) | payer MEDICAID, SELFPAY ==
--- NOTE | 2023-06-12 17:45 | RT.EKG_ITS ---
APPROVED REPORT Exam: Resting ECG Reason for Exam: chest pain, fatigue Patient Location: O HR:72 bpm ECG Measurements Heart Rate 72 AXIS NH 194 P 48 QRSd 99 QRS 34 QT 401 T 32 QTc 439 Conclusion Sinus rhythm...normal P axis, V-rate 50- 99 Normal Electrocardiogram I have reviewed and interpreted ECG and agree with software generated interpretation.
== END 2023-06-12 17:51 | disposition home or self-care (01) ==
LOC: DI.CM 17:51
PROVIDERS: PCP Family Medicine; Visit Provider Nurse Practitioner Family
DX: R07.9 Chest pain, unspecified (principal)
CPT/HCPCS: 93010

== ENCOUNTER 2023-06-14 06:45 | Emergency (ER) | payer OTHER, SELFPAY ==
[2023-06-14 06:50] VITALS: BP 153/97; PULSE 110; RESP 16; TEMP 36.6; O2SAT 98
--- NOTE | 2023-06-14 06:54 | W.ED.GENAD ---
Discharge Plan Disposition Patient Disposition: Home Condition: Good Discharge Details Clinical Impression: Pain, dental Primary Care Provider: Brendon Vivar ED Provider: Richy Eagle Home Meds and New Rx's Prescriptions: New clindamycin HCl [Cleocin HCl] 150 mg capsule 450 mg PO TID 7 Days Qty: 63 0RF No Action methadone 10 mg/5 mL solution 105 mg PO QAM magnesium gluconate 27 mg magnesium (500 mg) tablet 27 mg PO BID Qty: 60 3RF calcitriol 0.5 mcg capsule 0.5 mcg PO BID Qty: 360 3RF Hold Instructions: Resume on 06/15/22. cyclobenzaprine 10 mg tablet 10 mg PO TID PRN (Reason: muscle spasm) Qty: 30 3RF diclofenac sodium 1 % gel 4 g topical QID Qty: 100 6RF Rx Instructions: apply to single knee, ankle, foot; for foot includes sole/toes/top of foot clonazepam 1 mg tablet 1 mg PO BID Qty: 20 0RF omeprazole 40 mg capsule,delayed release(DR/EC) 40 mg PO DAILY polyethylene glycol 3350 17 gram/dose powder 17 g PO DAILY calcium carbonate [Tums] 200 mg calcium (500 mg) tablet,chewable 2,000 mg PO BID Hold Instructions: Resume on 05/12/23. Please hold your nightly dose tonight and your a.m. dose tomorrow morning. gabapentin 300 mg capsule 300 mg PO BID Discharge Instructions Instructions: Toothache (ED) Additional Instructions: The block we administered should help improve your pain. Please take 800 mg of ibuprofen every 6 hours and 1000 mg of Tylenol every 6 hours to help with the inflammation and pain. These are the maximum doses. Please take the antibiotic as directed to help with the infection in your tooth. Please use the dental list that we have provided to contact the dentist for prompt follow-up and evaluation for tooth removal. If you notice any worsening of your symptoms, or any new symptoms such as difficulty swallowing, difficulty breathing, vomiting, diarrhea, fever, chills, shortness of breath, chest pain, numbness, weakness, or fainting , please return immediately to the emergency department for reevaluation. Please follow up with your primary care provider as soon as possible for reassessment and reevaluation. As always, it was a pleasure participating in your medical care today. Referrals: Brendon Vivar DO [Primary Care Provider] - Medical Decision Making This is a 27-year-old male with a past medical history significant for anxiety, depression, high cholesterol, men type I, multiple electrolyte abnormalities with [place] [facility], PTSD, GERD who presents for dental pain. Pain has been going on for the last few days. It is in the left lower aspect. Tylenol and Motrin only helped slightly. No fever or chills. No other complaints at this time. Exam demonstrates well-appearing male, no periapical abscess. Mild dental caries throughout. Block was administered, notable improvement. Recommend NSAIDs for home. Will give clindamycin prescription secondary to his allergy to penicillins. Discussed red flags which to return. I have extensively reviewed the treatment plan and discharge instructions with the patient. I have addressed all patient concerns at this time. The patient was made aware of what symptoms to monitor for that would warrant a return to the emergency department. Discussed the plan with the patient, they demonstrate verbal understanding and agreement with our assessment and plan at this time. The documentation in this chart was dictated using [employer] dictation software. Please excuse any dictation errors. HPI General Date/Time Provider Initiated Documentation: 06/14/23 06:53. HPI Narrative: This is a 27-year-old male with a past medical history significant for anxiety, depression, high cholesterol, men type I, multiple electrolyte abnormalities with subsequent [place]20[place] [facility], PTSD, GERD who presents for dental pain. Pain has been going on for the last few days. It is in the left lower aspect. Tylenol and Motrin only helped slightly. No fever or chills. No other complaints at this time. Related Data Home Medications Medication Instructions Recorded Confirmed magnesium gluconate 27 mg 27 mg PO BID #60 tabs 11/08/22 06/14/23 magnesium (500 mg) tablet calcium carbonate 200 mg calcium 2,000 mg PO BID 02/02/23 06/14/23 (500 mg) chewable tablet (Tums) gabapentin 300 mg capsule 300 mg PO BID 02/02/23 06/14/23 calcitriol 0.5 mcg capsule 0.5 mcg PO BID #360 caps 04/21/23 06/14/23 cyclobenzaprine 10 mg tablet 10 mg PO TID PRN muscle spasm #30 04/21/23 06/14/23 tabs diclofenac sodium 1 % topical gel 4 g topical QID #100 grams 04/21/23 06/14/23 methadone 10 mg/5 mL oral solution 105 mg PO QAM 06/12/23 06/14/23 omeprazole 40 mg capsule,delayed 40 mg PO DAILY 06/12/23 06/14/23 release polyethylene glycol 3350 17 17 g PO DAILY 06/12/23 06/14/23 gram/dose oral powder clonazepam 1 mg tablet 1 mg PO BID #20 tabs 06/13/23 06/14/23 clindamycin HCl 150 mg capsule 450 mg (3 x 150 mg) PO TID 7 days 06/14/23 (Cleocin HCl) #63 caps Previous Rx's Medication Instructions Recorded magnesium gluconate 27 mg 27 mg PO BID #60 tabs 11/08/22 magnesium (500 mg) tablet calcitriol 0.5 mcg capsule 0.5 mcg PO BID #360 caps 04/21/23 cyclobenzaprine 10 mg tablet 10 mg PO TID PRN muscle spasm #30 04/21/23 tabs diclofenac sodium 1 % topical gel 4 g topical QID #100 grams 04/21/23 clonazepam 1 mg tablet 1 mg PO BID #20 tabs 06/13/23 clindamycin HCl 150 mg capsule 450 mg (3 x 150 mg) PO TID 7 days 06/14/23 (Cleocin HCl) #63 caps Allergies Allergy/AdvReac Type Severity Reaction Status Date / Time codeine Allergy Intermediate pass out Verified 06/14/23 06:52 Penicillins Allergy Skin Rash Verified 06/14/23 06:52 amoxicillin AdvReac Intermediate Nausea Verified 06/14/23 06:52 dextromethorphan AdvReac Intermediate Other (See Verified 06/14/23 06:52 [From NyQuil] Comment) doxylamine [From NyQuil] AdvReac Intermediate Other (See Verified 06/14/23 06:52 Comment) pseudoephedrine [From NyQuil] AdvReac Intermediate Other (See Verified 06/13/23 11:37 Comment) General Stated Complaint: DentalOral ADRIANA: 4 Review of Systems All systems reviewed & are unremarkable except as noted in HPI and below PFSH All Active Problems (Updated 06/14/23 @ 06:54 by Richy R Fco, DO) Pain, dental (Acute) Opiate dependence, continuous (Acute) Abdominal pain in male (Acute) Cholelithiasis (Acute) Abdominal pain (Acute) Hemoptysis (Acute) Lump of breast, left (Acute) Anxiety about health (Acute) Jaw pain (Acute) Cellulitis (Acute) Panic attack (Acute) Rash (Acute) Bronchitis (Acute) Fatigue (Acute) Abdominal discomfort, generalized (Acute) Arthralgia of left shoulder region (Acute) Side effect of drug (Acute) Cholelithiases (Acute) 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 Possible 2' Methadone, Clnzpm (?). Surg eval (+)/No further action. CKD (chronic kidney disease) stage 2, GFR 60-89 ml/min (Acute) GFR 64-65, with Hx FLORESITA and GFR < 45 Complex medical condition (Chronic) Serious electrolyte imbalances, with gynecomastia, possible MEN Dx, CKD and anemia with baseline anxiety and Hx PTSD. History of electrolyte imbalance (Acute) Neck pain on left side (Acute) with shoulder, upper back pain.. torticollis, radiating into left hip/leg Pulmonary nodule 1 cm or greater in diameter (Chronic) Therapeutic opioid induced constipation (Acute) Sphincter of Oddi dysfunction (Chronic) Abnormal CT scan, kidney (Acute) Intrahepatic bile duct dilation (Acute) Common bile duct dilatation (Acute) Abdominal pain (Acute) Iatrogenic hypocalcemia (Acute) Multiple endocrine neoplasia type I (Chronic) Chronic constipation (Chronic) Primary hyperparathyroidism (Chronic) Depression (Chronic) Hypomagnesemia (Chronic) Hypocalcemia (Chronic) Depression (Chronic) Suicidal ideation (Acute) Elevated parathyroid hormone (Acute) Family history of coronary arteriosclerosis (Chronic) Father of [place] at 50, mother had [place] at 42 Severe anxiety with panic (Chronic) Cellulitis (Acute) Medical History (Updated 06/14/23 @ 06:54 by Richy Eagle DO) Hypocalcemia Anxiety Depression Hyperlipidemia Family history of multiple endocrine neoplasia, type 1 PTSD (post-traumatic stress disorder) Per pt. states no triggers at this time. Surgical History H/O parathyroidectomy Family History Mother Anxiety Asthma Depression Sister Anxiety Depression Father Cancer lung & stomach Depression Diabetes Hypertension MEN 1 (multiple endocrine neoplasia) Social History Smoking/Tobacco Use Status: Never Smoking risk assessment performed?: Yes Alcohol Intake: never Drug use: Rarely Substance use type: does not use and former substance user Details: Relapse w/ snorting 'small amount' of heroin 03/20/23 per pt Adopted: No Caregiver/Support person: No Foster care: No Household members: none Housing: apartment Number of Children: 0 Communication Needs: None Education Level: high school Do you need help understanding health information?: Never 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 and animals: Yes (Ally) Pets and animals: dog(s) Sexually active: No Do you think of yourself as: straight/heterosexual Current gender identity: male What is your relationship status?: How often do you talk on the phone with friends or family?: twice per week How often do you get together with friends or relatives?: never Do you belong to any clubs or organized social groups?: no Panel score (0-1 are the most socially isolated patients): 0 What type of physical activity do you participate in: walking Duration: 15-30 minutes/day Frequency: 5-6 times per week Maryam/Bahai: Moravian Special maryam needs: No Seatbelt use: always Helmet use: Yes Helmet use: always Drive 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 day haul or farm charter bus 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 Exam Narrative Exam Narrative: 1.Const: Well-nourished, Well-developed, appearing stated age 2.Eyes: PERRL, no conjunctival injection, and symmetrical lids. 3.ENT: Atraumatic external nose and ears. Moist MM. Neck: Symmetric, trachea midline, No thyromegaly. Dental caries throughout, no periapical abscess. Notable dental carry in the left lower posterior molar. Known meningmas, airway compromise, trismus, or swelling in the posterior oropharynx. 4.CVS: +S1/S2, No murmurs or gallops. Peripheral pulses 2+ and equal in all extremities. Brisk capillary refill in all extremities. 5.RESP: Unlabored respiratory effort. Clear to auscultation bilaterally. No wheezes rales or rhonchi 6.GI: Soft, Nontender/Nondistended, No hepatosplenomegaly. No guarding or rebound. 7.MSK: Normocephalic/Atraumatic, Extremities w/o deformity or ttp No cyanosis or clubbing, Normal movement of all extremities 8.Skin: Warm, Dry. No rashes or lesions. 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 Sensation grossly intact, no focal neurologic deficits. 10.Psych: (AAO) x3. Appropriate mood and affect Course Vital Signs Vital signs: Vital Signs Temperature 36.6 C 06/14/23 06:50 Pulse 110 H 06/14/23 06:50 Respiratory Rate 16 06/14/23 06:50 Blood Pressure 153/97 H 06/14/23 06:50 Pulse Oximetry 98 06/14/23 06:50 Temperature 36.6 C 06/14/23 06:50 Temperature Source Temporal Artery Scan 06/14/23 06:50 Pulse 110 H 06/14/23 06:50 Respiratory Rate 16 06/14/23 06:50 Respiratory Effort Normal 06/14/23 06:53 Blood Pressure 153/97 H 06/14/23 06:50 Blood Pressure Position Sitting 06/14/23 06:50 Pulse Oximetry 98 06/14/23 06:50 Oxygen Delivery Method Room Air 06/14/23 06:50 Oxygen Flow Rate 0 06/14/23 06:50 Pain Level 10 06/14/23 06:53
[2023-06-14] MEDS: Bupivacaine 0.5% Pres-Free 30 ML VIAL (06:58)
== END 2023-06-14 07:50 | disposition home or self-care (01) ==
LOC: ER 07:05
PROVIDERS: Emergency Provider Student in an Organized Health Care Education/Training Program; PCP Family Medicine
DX: K08.89 Other specified disorders of teeth and supporting structures (principal)
CPT/HCPCS: 64400

== ENCOUNTER 2023-06-14 20:02 | Emergency (ER) | payer OTHER, SELFPAY ==
[2023-06-14 20:08] VITALS: BP 121/88; PULSE 92; RESP 16; TEMP 37.2; O2SAT 99
--- NOTE | 2023-06-14 20:55 | W.ED.GENAD ---
Discharge Plan Disposition Patient Disposition: Home Condition: Stable Discharge Details Chief Complaint: DentalOral Clinical Impression: Pain due to dental caries Primary Care Provider: Brendon Vivar ED Provider: Antoinette Templeton Home Meds and New Rx's Prescriptions: No Action methadone 10 mg/5 mL solution 105 mg PO QAM magnesium gluconate 27 mg magnesium (500 mg) tablet 27 mg PO BID Qty: 60 3RF calcitriol 0.5 mcg capsule 0.5 mcg PO BID Qty: 360 3RF Hold Instructions: Resume on 06/15/22. cyclobenzaprine 10 mg tablet 10 mg PO TID PRN (Reason: muscle spasm) Qty: 30 3RF diclofenac sodium 1 % gel 4 g topical QID Qty: 100 6RF Rx Instructions: apply to single knee, ankle, foot; for foot includes sole/toes/top of foot clonazepam 1 mg tablet 1 mg PO BID Qty: 20 0RF omeprazole 40 mg capsule,delayed release(DR/EC) 40 mg PO DAILY polyethylene glycol 3350 17 gram/dose powder 17 g PO DAILY calcium carbonate [Tums] 200 mg calcium (500 mg) tablet,chewable 2,000 mg PO BID Hold Instructions: Resume on 05/12/23. Please hold your nightly dose tonight and your a.m. dose tomorrow morning. gabapentin 300 mg capsule 300 mg PO BID clindamycin HCl [Cleocin HCl] 150 mg capsule 450 mg PO TID 7 Days Qty: 63 0RF Discharge Instructions Instructions: Dental Caries (ED) Additional Instructions: Please follow-up with your dentist as previously scheduled. Please take Tylenol or Ibuprofen with food every 4-6 hours as needed for pain and swelling. Follow up with primary care provider in 3-5 days. Return to ED sooner if any worsening or concerns. Increase oral fluids. Referrals: Brendon Vivar DO [Primary Care Provider] - 5 days Medical Decision Making 19-year-old male presents to the ER for the second time in 24 hours she was seen around 6 AM this morning for tooth ache. He does have a cracked left lower molar which is sensitive to heat air and cold. He reports that the dental block that he received earlier wore off around 3 PM. He reports that he does have a dentist appointment set up next Friday. He is speaking in full sentences, no trismus no other complaints. He is taking clindamycin and has HurriCaine gel at home. Please see procedure note, inferior alveolar dental block performed patient reports immediate relief. Will plan to discharge. HPI General Mode of arrival: ambulatory. Date/Time Provider Initiated Documentation: 06/14/23 20:19. Limitations to Documentation: no limitations. Information obtained by: patient, RN notes reviewed and old records reviewed. HPI Narrative: 27-year-old male well-known to the department presents to the ER requesting an additional dental block. Patient was seen at 6 AM this morning for left lower molar pain. Received a dental block which she reports wore off around 3:30 PM he has no other associated symptoms or concerns. He is speaking in full sentences. Related Data Home Medications Medication Instructions Recorded Confirmed magnesium gluconate 27 mg 27 mg PO BID #60 tabs 11/08/22 06/14/23 magnesium (500 mg) tablet calcium carbonate 200 mg calcium 2,000 mg PO BID 02/02/23 06/14/23 (500 mg) chewable tablet (Tums) gabapentin 300 mg capsule 300 mg PO BID 02/02/23 06/14/23 calcitriol 0.5 mcg capsule 0.5 mcg PO BID #360 caps 04/21/23 06/14/23 cyclobenzaprine 10 mg tablet 10 mg PO TID PRN muscle spasm #30 04/21/23 06/14/23 tabs diclofenac sodium 1 % topical gel 4 g topical QID #100 grams 04/21/23 06/14/23 methadone 10 mg/5 mL oral solution 105 mg PO QAM 06/12/23 06/14/23 omeprazole 40 mg capsule,delayed 40 mg PO DAILY 06/12/23 06/14/23 release polyethylene glycol 3350 17 17 g PO DAILY 06/12/23 06/14/23 gram/dose oral powder clonazepam 1 mg tablet 1 mg PO BID #20 tabs 06/13/23 06/14/23 clindamycin HCl 150 mg capsule 450 mg (3 x 150 mg) PO TID 7 days 06/14/23 (Cleocin HCl) #63 caps Previous Rx's Medication Instructions Recorded magnesium gluconate 27 mg 27 mg PO BID #60 tabs 11/08/22 magnesium (500 mg) tablet calcitriol 0.5 mcg capsule 0.5 mcg PO BID #360 caps 04/21/23 cyclobenzaprine 10 mg tablet 10 mg PO TID PRN muscle spasm #30 04/21/23 tabs diclofenac sodium 1 % topical gel 4 g topical QID #100 grams 04/21/23 clonazepam 1 mg tablet 1 mg PO BID #20 tabs 06/13/23 clindamycin HCl 150 mg capsule 450 mg (3 x 150 mg) PO TID 7 days 06/14/23 (Cleocin HCl) #63 caps Allergies Allergy/AdvReac Type Severity Reaction Status Date / Time codeine Allergy Intermediate pass out Verified 06/14/23 06:52 Penicillins Allergy Skin Rash Verified 06/14/23 06:52 amoxicillin AdvReac Intermediate Nausea Verified 06/14/23 06:52 dextromethorphan AdvReac Intermediate Other (See Verified 06/14/23 06:52 [From NyQuil] Comment) doxylamine [From NyQuil] AdvReac Intermediate Other (See Verified 06/14/23 06:52 Comment) pseudoephedrine [From NyQuil] AdvReac Intermediate Other (See Verified 06/13/23 11:37 Comment) General Stated Complaint: DentalOral ADRIANA: 4 Review of Systems ENT Ears, Nose, Mouth, and Throat: Reports dental pain PFSH All Active Problems (Updated 06/14/23 @ 21:00 by Antoinette Templeton NP) Pain due to dental caries (Acute) Pain, dental (Acute) Opiate dependence, continuous (Acute) Abdominal pain in male (Acute) Cholelithiasis (Acute) Abdominal pain (Acute) Hemoptysis (Acute) Lump of breast, left (Acute) Anxiety about health (Acute) Jaw pain (Acute) Cellulitis (Acute) Panic attack (Acute) Rash (Acute) Bronchitis (Acute) Fatigue (Acute) Abdominal discomfort, generalized (Acute) Arthralgia of left shoulder region (Acute) Side effect of drug (Acute) Cholelithiases (Acute) 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 (Acute) Inflammatory arthritis (Acute) Costochondritis (Acute 12/13/22) [facility] ED Left arm numbness (Acute) Gynecomastia, male (Acute) b/l, per CT (Jul 2022).. Possible 2' Methadone, Clnzpm (?). Surg eval (+)/No further action. CKD (chronic kidney disease) stage 2, GFR 60-89 ml/min (Acute) GFR 64-65, with Hx FLORESITA and GFR < 45 Complex medical condition (Chronic) Serious electrolyte imbalances, with gynecomastia, possible MEN Dx, CKD and anemia with baseline anxiety and Hx PTSD. History of electrolyte imbalance (Acute) Neck pain on left side (Acute) with shoulder, upper back pain.. torticollis, radiating into left hip/leg Pulmonary nodule 1 cm or greater in diameter (Chronic) Therapeutic opioid induced constipation (Acute) Sphincter of Oddi dysfunction (Chronic) Abnormal CT scan, kidney (Acute) Intrahepatic bile duct dilation (Acute) Common bile duct dilatation (Acute) Abdominal pain (Acute) Iatrogenic hypocalcemia (Acute) Multiple endocrine neoplasia type I (Chronic) Chronic constipation (Chronic) Primary hyperparathyroidism (Chronic) Depression (Chronic) Hypomagnesemia (Chronic) Hypocalcemia (Chronic) Depression (Chronic) Suicidal ideation (Acute) Elevated parathyroid hormone (Acute) Family history of coronary arteriosclerosis (Chronic) Father of [place] at 50, mother had [place] at 42 Severe anxiety with panic (Chronic) Cellulitis (Acute) Medical History (Updated 06/14/23 @ 21:00 by Antoinette Templeton NP) Hypocalcemia Anxiety Depression Hyperlipidemia Family history of multiple endocrine neoplasia, type 1 PTSD (post-traumatic stress disorder) Per pt. states no triggers at this time. Surgical History H/O parathyroidectomy Family History Mother Anxiety Asthma Depression Sister Anxiety Depression Father Cancer lung & stomach Depression Diabetes Hypertension MEN 1 (multiple endocrine neoplasia) Social History Smoking/Tobacco Use Status: Never Smoking risk assessment performed?: Yes Alcohol Intake: never Drug use: Rarely Substance use type: does not use and former substance user Details: Relapse w/ snorting 'small amount' of heroin 03/20/23 per pt Adopted: No Caregiver/Support person: No Foster care: No Household members: none Housing: apartment Number of Children: 0 Communication Needs: None Education Level: high school Do you need help understanding health information?: Never 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 and animals: Yes (Ally) Pets and animals: dog(s) Sexually active: No Do you think of yourself as: straight/heterosexual Current gender identity: male What is your relationship status?: How often do you talk on the phone with friends or family?: twice per week How often do you get together with friends or relatives?: never Do you belong to any clubs or organized social groups?: no Panel score (0-1 are the most socially isolated patients): 0 What type of physical activity do you participate in: walking Duration: 15-30 minutes/day Frequency: 5-6 times per week Maryam/Jewish: Judaism Special maryam needs: No Seatbelt use: always Helmet use: Yes Helmet use: always Drive 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 stock car 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 Exam [facility] Teeth image: 1. Broken tooth, surrounding gingival swelling. No drainage no area of fluctuance no evidence for abscess. Course Vital Signs Vital signs: Vital Signs Temperature 37.2 C 06/14/23 20:08 Pulse 92 H 06/14/23 20:08 Respiratory Rate 16 06/14/23 20:08 Blood Pressure 121/88 06/14/23 20:08 Pulse Oximetry 99 06/14/23 20:08 Temperature 37.2 C 06/14/23 20:08 Temperature Source Skin 06/14/23 20:08 Pulse 92 H 06/14/23 20:08 Respiratory Rate 16 06/14/23 20:08 Blood Pressure 121/88 06/14/23 20:08 Blood Pressure Position Sitting 06/14/23 20:08 Pulse Oximetry 99 06/14/23 20:08 Oxygen Delivery Method Room Air 06/14/23 20:08 Oxygen Flow Rate 0 06/14/23 20:08 Pain Level 7 06/14/23 20:08 Procedures Nerve Block Nerve Block 1: Time out performed: No Local Anesthetic: Lidocaine 1% and Bupivicaine 0.5% Amount of anesthesia used (mL): 2 Side: left Intraoral Nerve Block: inferior alveolar Procedure Successful: Yes Patient Tolerated Procedure: well and no complications Complications: none
[2023-06-14 21:06] VITALS: BP 121/88; PULSE 92; RESP 16; TEMP 37.2; O2SAT 99
== END 2023-06-14 21:07 | disposition home or self-care (01) ==
PROVIDERS: Emergency Provider Registered Nurse Emergency; PCP Family Medicine
DX: K08.89 Other specified disorders of teeth and supporting structures (principal); K02.9 Dental caries, unspecified
CPT/HCPCS: 64400; 99283

== ENCOUNTER 2023-06-19 21:02 | Emergency (ER) | payer OTHER, SELFPAY ==
[2023-06-19 21:06] VITALS: BP 161/100; PULSE 105; RESP 18; O2SAT 99
[2023-06-19 21:41] VITALS: RESP 16
--- NOTE | 2023-06-19 21:42 | ED.GENADUL_ITS ---
HPI General Stated Complaint: Anxiety ADRIANA: 3 Date/Time Provider Initiated Documentation: 06/19/23 21:35. 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 Patient feeling extremely anxious and cannot stop thinking about what has happened, is feeling some level of guilt as to what he could have done to prevent this, patient himself has no SI or HI. Lives alone with his service dog. Has family support nearby. Has a psychiatric counselor that he sees regularly. Related Data Home Medications Medication Instructions Recorded Confirmed magnesium gluconate 27 mg 27 mg PO BID #60 tabs 11/08/22 06/19/23 magnesium (500 mg) tablet calcium carbonate 200 mg calcium 2,000 mg PO BID 02/02/23 06/19/23 (500 mg) chewable tablet (Tums) gabapentin 300 mg capsule 300 mg PO BID 02/02/23 06/19/23 calcitriol 0.5 mcg capsule 0.5 mcg PO BID #360 caps 04/21/23 06/19/23 cyclobenzaprine 10 mg tablet 10 mg PO TID PRN muscle spasm #30 04/21/23 06/19/23 tabs diclofenac sodium 1 % topical gel 4 g topical QID #100 grams 04/21/23 06/19/23 methadone 10 mg/5 mL oral solution 105 mg PO QAM 06/12/23 06/19/23 omeprazole 40 mg capsule,delayed 40 mg PO DAILY 06/12/23 06/19/23 release polyethylene glycol 3350 17 17 g PO DAILY 06/12/23 06/19/23 gram/dose oral powder clonazepam 1 mg tablet 1 mg PO BID #20 tabs 06/13/23 06/19/23 Previous Rx's Medication Instructions Recorded magnesium gluconate 27 mg 27 mg PO BID #60 tabs 11/08/22 magnesium (500 mg) tablet calcitriol 0.5 mcg capsule 0.5 mcg PO BID #360 caps 04/21/23 cyclobenzaprine 10 mg tablet 10 mg PO TID PRN muscle spasm #30 04/21/23 tabs diclofenac sodium 1 % topical gel 4 g topical QID #100 grams 04/21/23 clonazepam 1 mg tablet 1 mg PO BID #20 tabs 06/13/23 Allergies Allergy/AdvReac Type Severity Reaction Status Date / Time codeine Allergy Intermediate pass out Verified 06/19/23 21:10 Penicillins Allergy Skin Rash Verified 06/19/23 21:10 amoxicillin AdvReac Intermediate Nausea Verified 06/19/23 21:10 dextromethorphan AdvReac Intermediate Other (See Verified 06/19/23 21:10 [From NyQuil] Comment) doxylamine [From NyQuil] AdvReac Intermediate Other (See Verified 06/19/23 21:10 Comment) pseudoephedrine [From NyQuil] AdvReac Intermediate Other (See Verified 06/19/23 21:10 Comment) Review of Systems Narrative: Review of Systems Constitutional: negative Eyes: negative ENT: negative Cardiovascular: negative Respiratory: negative Gastrointestinal: negative : negative Musculoskeletal: negative Skin: negative Neurologic: negative Psych: Anxiety, grief, insomnia PFSH All Active Problems (Updated 06/17/23 @ 00:05 by HAMMAD WILEY) Pain due to dental caries (Acute) Pain, dental (Acute) Opiate dependence, continuous (Acute) Abdominal pain in male (Acute) Cholelithiasis (Acute) Abdominal pain (Acute) Hemoptysis (Acute) Lump of breast, left (Acute) Anxiety about health (Acute) Jaw pain (Acute) Cellulitis (Acute) Panic attack (Acute) Rash (Acute) Bronchitis (Acute) Fatigue (Acute) Cholelithiases (Acute) 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 Possible 2' Methadone, Clnzpm (?). Surg eval (+)/No further action. CKD (chronic kidney disease) stage 2, GFR 60-89 ml/min (Acute) GFR 64-65, with Hx FLORESITA and GFR < 45 Complex medical condition (Chronic) Serious electrolyte imbalances, with gynecomastia, possible MEN Dx, CKD and anemia with baseline anxiety and Hx PTSD. History of electrolyte imbalance (Acute) Neck pain on left side (Acute) with shoulder, upper back pain.. torticollis, radiating into left hip/leg Pulmonary nodule 1 cm or greater in diameter (Chronic) Therapeutic opioid induced constipation (Acute) Sphincter of Oddi dysfunction (Chronic) Abnormal CT scan, kidney (Acute) Intrahepatic bile duct dilation (Acute) Common bile duct dilatation (Acute) Abdominal pain (Acute) Iatrogenic hypocalcemia (Acute) Multiple endocrine neoplasia type I (Chronic) Chronic constipation (Chronic) Primary hyperparathyroidism (Chronic) Depression (Chronic) Hypomagnesemia (Chronic) Hypocalcemia (Chronic) Depression (Chronic) Suicidal ideation (Acute) Elevated parathyroid hormone (Acute) Family history of coronary arteriosclerosis (Chronic) Father of AR at 50, mother had AR at 42 Severe anxiety with panic (Chronic) Cellulitis (Acute) Medical History Hypocalcemia Anxiety Depression Hyperlipidemia Family history of multiple endocrine neoplasia, type 1 PTSD (post-traumatic stress disorder) Per pt. states no triggers at this time. Surgical History H/O parathyroidectomy Family History Mother Anxiety Asthma Depression Sister Anxiety Depression Father Cancer lung & stomach Depression Diabetes Hypertension MEN 1 (multiple endocrine neoplasia) Social History Smoking/Tobacco Use Status: Never Smoking risk assessment performed?: Yes Alcohol Intake: never Drug use: Rarely Substance use type: does not use and former substance user Details: Relapse w/ snorting 'small amount' of heroin 03/20/23 per pt Adopted: No Caregiver/Support person: No Foster care: No Household members: none Housing: apartment Number of Children: 0 Communication Needs: None Education Level: high school Do you need help understanding health information?: Never 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 and animals: Yes (Ally) Pets and animals: dog(s) Sexually active: No Do you think of yourself as: straight/heterosexual Current gender identity: male What is your relationship status?: How often do you talk on the phone with friends or family?: twice per week How often do you get together with friends or relatives?: never Do you belong to any clubs or organized social groups?: no Panel score (0-1 are the most socially isolated patients): 0 What type of physical activity do you participate in: walking Duration: 15-30 minutes/day Frequency: 5-6 times per week Maryam/Baptism: Buddhism Special maryam needs: No Seatbelt use: always Helmet use: Yes Helmet use: always 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 Exam Narrative Exam Narrative: Physical Examination General: alert, awake, cooperative, resting comfortably, no acute distress HEENT: normocephalic, atraumatic; PERRL, EOM intact, conjunctiva normal; no nasal discharge; moist mucous membranes, oral and pharyngeal mucosa normal, tolerating secretions Neck: supple, trachea midline; full ROM Chest: normal to inspection Respiratory: normal respiratory effort, speaking in full sentences GI: abdomen soft, non-tender, non-distended; no palpable mass or hepatosplenomegaly Skin: no lesions, rashes or trauma appreciated Neuro: AAOx3, normal speech, moving all extremities Psych: Tearful, grieving, anxious, denies SI denies HI Course Vital Signs Vital signs: Vital Signs Pulse 105 H 06/19/23 21:06 Respiratory Rate 18 06/19/23 21:06 Blood Pressure 161/100 H 06/19/23 21:06 Pulse Oximetry 99 06/19/23 21:06 Pulse 105 H 06/19/23 21:06 Respiratory Rate 18 06/19/23 21:06 Respiratory Effort Normal 06/19/23 21:09 Blood Pressure 161/100 H 06/19/23 21:06 Blood Pressure Position Sitting 06/19/23 21:06 Pulse Oximetry 99 06/19/23 21:06 Oxygen Delivery Method Room Air 06/19/23 21:06 Oxygen Flow Rate 0 06/19/23 21:06 Medical Decision Making 27-year-old male, [employer] , presents shortly after finding out that his friend and fellow Lizz has recently committed suicide by hanging, patient feeling grief anxiety, insomnia, requesting something to help with anxiety and sleep. Patient denies SI or HI. No evidence of delusions. 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 I have offered patient screening services by [facility] services if he feels unsafe. Would like to rest here for some time. Will revisit patient needs. Will provide low-dose Ativan p.o. as patient does take clonazepam daily. No signs of respiratory depression, no signs of intoxication, no signs of trauma. Close reassessment 23: 26 patient resting comfortably no acute distress. Will allow patient to rest in department this evening. Quality:[facility] Related Social Needs: No Data to Display Discharge Plan Discharge Details Chief Complaint: Anxiety Primary Care Provider: Brendon Vivar ED Provider: Ajay Kennedy Home Meds and New Rx's Prescriptions: No Action methadone 10 mg/5 mL solution 105 mg PO QAM magnesium gluconate 27 mg magnesium (500 mg) tablet 27 mg PO BID Qty: 60 3RF calcitriol 0.5 mcg capsule 0.5 mcg PO BID Qty: 360 3RF Hold Instructions: Resume on 06/15/22. cyclobenzaprine 10 mg tablet 10 mg PO TID PRN (Reason: muscle spasm) Qty: 30 3RF diclofenac sodium 1 % gel 4 g topical QID Qty: 100 6RF Rx Instructions: apply to single knee, ankle, foot; for foot includes sole/toes/top of foot clonazepam 1 mg tablet 1 mg PO BID Qty: 20 0RF omeprazole 40 mg capsule,delayed release(DR/EC) 40 mg PO DAILY polyethylene glycol 3350 17 gram/dose powder 17 g PO DAILY calcium carbonate [Tums] 200 mg calcium (500 mg) tablet,chewable 2,000 mg PO BID Hold Instructions: Resume on 05/12/23. Please hold your nightly dose tonight and your a.m. dose tomorrow morning. gabapentin 300 mg capsule 300 mg PO BID
[2023-06-19] MEDS: LORazepam 0.5 MG TAB PO (21:48)
--- NOTE | 2023-06-19 23:54 | W.EDPROG ---
Date of service: 06/19/23 Time of Service: 23:55 Medical Decision Making patient calm caox4 speaking clearly and feels improved after po ativan, no si/hi. 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, patient experiencing grief and anxiety; needing place to rest with people around; denies SI or HI Last updated by Ajay Kennedy MD at 06/19/23 23:27 Discharge Plan Disposition Patient Disposition: Home Condition: Stable Discharge Details Clinical Impression: Grief reaction Primary Care Provider: Brendon Vivar ED Provider: Ricardo Crabtree Home Meds and New Rx's Prescriptions: Continued methadone 10 mg/5 mL solution 105 mg PO QAM magnesium gluconate 27 mg magnesium (500 mg) tablet 27 mg PO BID Qty: 60 3RF calcitriol 0.5 mcg capsule 0.5 mcg PO BID Qty: 360 3RF Hold Instructions: Resume on 06/15/22. cyclobenzaprine 10 mg tablet 10 mg PO TID PRN (Reason: muscle spasm) Qty: 30 3RF diclofenac sodium 1 % gel 4 g topical QID Qty: 100 6RF Rx Instructions: apply to single knee, ankle, foot; for foot includes sole/toes/top of foot clonazepam 1 mg tablet 1 mg PO BID Qty: 20 0RF omeprazole 40 mg capsule,delayed release(DR/EC) 40 mg PO DAILY polyethylene glycol 3350 17 gram/dose powder 17 g PO DAILY calcium carbonate [Tums] 200 mg calcium (500 mg) tablet,chewable 2,000 mg PO BID Hold Instructions: Resume on 05/12/23. Please hold your nightly dose tonight and your a.m. dose tomorrow morning. gabapentin 300 mg capsule 300 mg PO BID Discharge Instructions Additional Instructions: follow up with your primary care provider within 1-2 weeks if you feel more ill or have thoughts of self harm return to the emergency department
[2023-06-20 00:11] VITALS: PULSE 75; RESP 14; TEMP 36.4; O2SAT 95
== END 2023-06-20 00:14 | disposition home or self-care (01) ==
PROVIDERS: Emergency Provider Emergency Medicine; PCP Family Medicine
DX: F41.9 Anxiety disorder, unspecified (principal)
CPT/HCPCS: 00123; 99282; 99283

== ENCOUNTER 2023-06-20 16:05 | Emergency (ER) | payer OTHER, SELFPAY ==
[2023-06-20 16:07] VITALS: BP 132/85; PULSE 102; RESP 14; TEMP 37.1; O2SAT 96
--- NOTE | 2023-06-20 16:14 | W.ED.GENAD ---
HPI General Stated Complaint: Abd Prob ADRIANA: 3 Date/Time Provider Initiated Documentation: 06/20/23 16:14. HPI Narrative: 27 year-old male presents to ED today by POV/ambulating with a chief complaint of abdominal pain with onset noted this morning at 0430- states he may have had some bad rice, and had some diarrhea which is usually the opposite of his BMs due to chronic constipation in methodone use. Quality described as generalized L sided abdominal pain, occasional upper stomach pain, no radiation to vomiting, shortness of breath, diaphoresis, dizziness, cough, black stools, bloody diarrhea. Severity is described as moderate. Palliating factors include nothing specific. Provoking factors include nothing specific. Patient not anticoagulated. Related Data Home Medications Medication Instructions Recorded Confirmed magnesium gluconate 27 mg 27 mg PO BID #60 tabs 11/08/22 06/19/23 magnesium (500 mg) tablet calcium carbonate 200 mg calcium 2,000 mg PO BID 02/02/23 06/19/23 (500 mg) chewable tablet (Tums) gabapentin 300 mg capsule 300 mg PO BID 02/02/23 06/19/23 calcitriol 0.5 mcg capsule 0.5 mcg PO BID #360 caps 04/21/23 06/19/23 cyclobenzaprine 10 mg tablet 10 mg PO TID PRN muscle spasm #30 04/21/23 06/19/23 tabs diclofenac sodium 1 % topical gel 4 g topical QID #100 grams 04/21/23 06/19/23 methadone 10 mg/5 mL oral solution 105 mg PO QAM 06/12/23 06/19/23 omeprazole 40 mg capsule,delayed 40 mg PO DAILY 06/12/23 06/19/23 release polyethylene glycol 3350 17 17 g PO DAILY 06/12/23 06/19/23 gram/dose oral powder clonazepam 1 mg tablet 1 mg PO BID #20 tabs 06/13/23 06/19/23 Previous Rx's Medication Instructions Recorded magnesium gluconate 27 mg 27 mg PO BID #60 tabs 11/08/22 magnesium (500 mg) tablet calcitriol 0.5 mcg capsule 0.5 mcg PO BID #360 caps 04/21/23 cyclobenzaprine 10 mg tablet 10 mg PO TID PRN muscle spasm #30 04/21/23 tabs diclofenac sodium 1 % topical gel 4 g topical QID #100 grams 04/21/23 clonazepam 1 mg tablet 1 mg PO BID #20 tabs 06/13/23 Allergies Allergy/AdvReac Type Severity Reaction Status Date / Time codeine Allergy Intermediate pass out Verified 06/19/23 21:10 Penicillins Allergy Skin Rash Verified 06/19/23 21:10 amoxicillin AdvReac Intermediate Nausea Verified 06/19/23 21:10 dextromethorphan AdvReac Intermediate Other (See Verified 06/19/23 21:10 [From NyQuil] Comment) doxylamine [From NyQuil] AdvReac Intermediate Other (See Verified 06/19/23 21:10 Comment) pseudoephedrine [From NyQuil] AdvReac Intermediate Other (See Verified 06/19/23 21:10 Comment) Review of Systems All systems reviewed & are unremarkable except as noted in HPI and below PFSH All Active Problems (Updated 06/20/23 @ 18:49 by ANDREW Coleman) Constipation (Acute) Grief reaction (Chronic) Pain due to dental caries (Acute) Pain, dental (Acute) Opiate dependence, continuous (Acute) Abdominal pain in male (Acute) Cholelithiasis (Acute) Abdominal pain (Acute) Hemoptysis (Acute) Lump of breast, left (Acute) Anxiety about health (Acute) Jaw pain (Acute) Cellulitis (Acute) Panic attack (Acute) Rash (Acute) Bronchitis (Acute) Fatigue (Acute) Cholelithiases (Acute) 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 Possible 2' Methadone, Clnzpm (?). Surg eval (+)/No further action. CKD (chronic kidney disease) stage 2, GFR 60-89 ml/min (Acute) GFR 64-65, with Hx FLORESITA and GFR < 45 Complex medical condition (Chronic) Serious electrolyte imbalances, with gynecomastia, possible MEN Dx, CKD and anemia with baseline anxiety and Hx PTSD. History of electrolyte imbalance (Acute) Neck pain on left side (Acute) with shoulder, upper back pain.. torticollis, radiating into left hip/leg Pulmonary nodule 1 cm or greater in diameter (Chronic) Therapeutic opioid induced constipation (Acute) Sphincter of Oddi dysfunction (Chronic) Abnormal CT scan, kidney (Acute) Intrahepatic bile duct dilation (Acute) Common bile duct dilatation (Acute) Abdominal pain (Acute) Iatrogenic hypocalcemia (Acute) Multiple endocrine neoplasia type I (Chronic) Chronic constipation (Chronic) Primary hyperparathyroidism (Chronic) Depression (Chronic) Hypomagnesemia (Chronic) Hypocalcemia (Chronic) Depression (Chronic) Suicidal ideation (Acute) Elevated parathyroid hormone (Acute) Family history of coronary arteriosclerosis (Chronic) Father of [place] at 50, mother had [place] at 42 Severe anxiety with panic (Chronic) Cellulitis (Acute) Medical History Hypocalcemia Anxiety Depression Hyperlipidemia Family history of multiple endocrine neoplasia, type 1 PTSD (post-traumatic stress disorder) Per pt. states no triggers at this time. Surgical History H/O parathyroidectomy Family History Mother Anxiety Asthma Depression Sister Anxiety Depression Father Cancer lung & stomach Depression Diabetes Hypertension MEN 1 (multiple endocrine neoplasia) Social History Smoking/Tobacco Use Status: Never Smoking risk assessment performed?: Yes Alcohol Intake: never Drug use: Rarely Substance use type: does not use and former substance user Details: Relapse w/ snorting 'small amount' of heroin 03/20/23 per pt Adopted: No Caregiver/Support person: No Foster care: No Household members: none Housing: apartment Number of Children: 0 Communication Needs: None Education Level: high school Do you need help understanding health information?: Never 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 and animals: Yes (Ally) Pets and animals: dog(s) Sexually active: No Do you think of yourself as: straight/heterosexual Current gender identity: male What is your relationship status?: How often do you talk on the phone with friends or family?: twice per week How often do you get together with friends or relatives?: never Do you belong to any clubs or organized social groups?: no Panel score (0-1 are the most socially isolated patients): 0 What type of physical activity do you participate in: walking Duration: 15-30 minutes/day Frequency: 5-6 times per week Maryam/Jewish: Synagogue Special maryam needs: No Seatbelt use: always Helmet use: Yes Helmet use: always Drive 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 city bus 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 Exam Narrative Exam Narrative: GENERAL APPEARANCE: Well-nourished, non-toxic, awake and alert, atraumatic, no acute distress. SKIN: Warm, pink, dry, intact, without rashes/lesions/ulcerations. HEAD: Normocephalic, atraumatic, normal hair distribution for gender/age. EYES: Pupils PERRLA, EOMs intact without nystagmus, normal conjunctiva, no exudates on lids/lashes. ENT: Nares patent, no circumoral cyanosis, no facial swelling NECK: Supple, trachea midline, painless cervical ROM. LUNGS/CHEST: Lungs CTA bilaterally- no rhonchi/rales/wheezes diffusely, non-labored respirations, normal A/P diameter, symmetrical expansion, no chest wall deformity HEART (CV/PV): Regular rate and rhythm without murmur, no peripheral edema, no JVD. ABDOMEN: Soft, non-distended, no guarding, L-sided abdominal tenderness, LLQ most focal, no Rovsing's, no Cedillo's sign, no McBurney's point-tenderness. MSK: Normal ROM, no swelling/deformity to bilateral UEs or LEs, moving all extremities without weakness, no cyanosis, spine midline without tenderness, normal curvature. NEURO: Mental Status AAOx4 - alert to person, place, time, events No facial droop, no forehead involvement. Motor: No focal weakness - strength 5/5 in bilateral UEs and LEs, proximal and distal, symmetric. Sensory: sensation intact to light touch globally. Gait normal: patient ambulated without ataxia into ED room. PSYCH: euthymic, cooperative, pleasant, appropriate speech Course Vital Signs Vital signs: Vital Signs Temperature 37.1 C 06/20/23 16:07 Pulse 102 H 06/20/23 16:07 Respiratory Rate 14 06/20/23 16:07 Blood Pressure 132/85 06/20/23 16:07 Pulse Oximetry 96 06/20/23 16:07 Temperature 37.1 C 06/20/23 16:07 Temperature Source Skin 06/20/23 16:07 Pulse 102 H 06/20/23 16:07 Respiratory Rate 14 06/20/23 16:07 Blood Pressure 132/85 06/20/23 16:07 Blood Pressure Position Sitting 06/20/23 16:07 Pulse Oximetry 96 06/20/23 16:07 Oxygen Delivery Method Room Air 06/20/23 16:07 Oxygen Flow Rate 0 06/20/23 16:07 Pain Level 4 06/20/23 16:07 Medical Decision Making This dictation utilizes [id number] dictation software and may contain unedited grammatical errors. 27 y/o M, well known to the ED with 100+ visits this year, last visit last night, presents to ED today with a chief complaint of had diarrhea and has moderate abdominal pain on L side- states he is usually constipated due to his methadone use. Patient denies fever, vomiting, shortness of breath, dizziness. Patients' medical history: complex, has pending elective cholecystectomy. Family and social history: best friend recently. Pertinent exam findings / vital signs include LLQ abdominal tenderness, benign cardiopulmonary status, neuro baseline. Differential / pathologies of concern include diverticulitis, constipation, atypical chest pain. SBO. Diagnostic studies of: -CBC, CMP, Lipase, Lactate, UA, Trop I, Mg++, CT ABD/Pelvis w Contrast. -labs benign -trop I neg -UA neg -CBC benign -chronic SCr elev -Lipase WNL -Lactate neg 1.4 -Mg++ wnl -CT shows large stool burden Interventions of: -IV Zofran, IV LR, IV famotidine, Mag Citrate to-go. ED Course/Assessment/Plan: 27-year-old male seen frequently for abdominal pain presents with diarrhea which is concerning to him because he is normally constipated due to his chronic methadone use. His abdominal exam is nonperitoneal his labs are very reassuring that there is no acute emergent pathology, his lipase is within normal limits there is no abnormality seen in the biliary tree he does have a pending elective cholecystectomy. He has a large stool burden and this fits with his exam and laboratory workup and I suggest that he return home to perform magnesium citrate laxative treatment. I did advise him that he may feel increased abdominal cramping leading up to his bowel movement. Encouraged strict return criteria for any fever, intractable nausea or vomiting or other emergent concerns. Findings not consistent with diverticulitis, perforation, SBO, ACS. Disposition of Constipation. Patient verbalized understanding of the plan and return to ED criteria and engaged in shared decision making. Medical Records Medical records reviewed: Yes I reviewed the patient's medical records. Imaging Data Radiologic Study #2: Imaging: CT Scan Radiologist's impression: EXAM: CT ABDOMEN PELVIS W CLINICAL HISTORY: LLQ tenderness, ?divertic TECHNIQUE: Imaging Protocol: Axial computed tomography images with coronal and sagittal reformatted images were created and reviewed CONTRAST MATERIAL: Intravenous: Omnipaque 350 Contrast volume:100 mL Oral: No COMPARISON: CT CT THORACIC SPINE RECONS from 10/03/[address] CHEST WO from 10/03/[address] ABDOMEN PELVIS W from 04/11/[address] ABDOMEN PELVIS W from 04/19/[address] ABDOMEN PELVIS W from 05/03/2023 FINDINGS: ABDOMEN: Lung Bases: Normal where visualized. Liver: Normal density. No measurable mass. Portal, Superior Mesenteric, and Splenic Veins: Unremarkable. Gallbladder and Biliary Tract: No radiodense calculus or dilation. Pancreas: Normal density, no abnormal calcifications or inflammatory process. Spleen: Calcified granuloma in the spleen. Adrenals: No masses seen. Kidneys: Normal size, contour and axis. No radiodense stones or obstructive uropathy. Stable upper pole left renal cyst. No follow-up is recommended. Abdominal Aorta: Abdominal portion non-dilated. Bowel: The stomach is incompletely distended limiting evaluation. There is stool seen throughout the colon suggesting constipation. There is no evidence of bowel obstruction or bowel wall thickening. No evidence of appendicitis. Peritoneal Cavity: No ascites, collection or mesenteric inflammatory response. No free air. Lymph Nodes: Within normal limits. Bones: Within normal limits for the patient's age. Soft Tissues: Unremarkable. There is a small small fat containing right inguinal hernia. PELVIS: Bladder: The urinary bladder is incompletely distended. There is diffuse thickening of the wall of the urinary bladder. Reproductive Organs: Unremarkable as visualized. Lymph Nodes: Within normal limits. Bones: Within normal limits for the patient's age. IMPRESSION: 1. Large amount of stool in the colon suggesting constipation. 2. Thickening of the wall of the urinary bladder. This likely is due to underdistention. Cystitis cannot be entirely excluded but is considered less likely. Lab Data Lab results reviewed: Yes I reviewed the patient's lab results. Labs: Laboratory Tests Range/Units 06/20/23 06/20/23 16:30 18:10 WBC (4.4-10.8) 10^3/uL 6.92 RBC (4.36-5.78) 10^6/uL 3.97 L Hgb (13.5-17.5) g/dL 12.2 L Hct (40.0-50.0) % 36.0 L MCV (80-95) fL 91 MCH (27.0-33.0) pg 30.7 MCHC (32.0-36.0) % 33.9 RDW (11.8-14.1) % 12.6 Plt Count (130-400) 10^3/uL 277 MPV (8.0-11.0) fL 10.1 Immature Gran % 0.3 Neutrophils % 55.6 Lymphocytes % 30.8 Monocytes % 10.0 Eosinophils % 2.9 Basophils % 0.4 Nucleated RBC % (0.0-0.3) % 0.0 Absolute Neutrophils (1.2-6.7) 10^3/uL 3.85 Absolute Lymphocytes (1.2-3.4) 10^3/uL 2.13 Absolute Monocytes (0.1-0.8) 10^3/uL 0.69 Absolute Eosinophils (0.0-0.7) 10^3/uL 0.20 Absolute Basophils (0.0-0.2) 10^3/uL 0.03 VBG Lactate (0.6-1.4) mmol/L 1.4 Sodium (136-145) mmol/L 139 Potassium (3.5-5.1) mmol/L 3.7 Chloride (98-107) mmol/L 99 Carbon Dioxide (21.0-32.0) mmol/L 33.7 H Anion Gap (3-11) mmol/L 6.3 BUN (7-18) mg/dL 14 Creatinine (0.70-1.30) mg/dL 1.9 H Est GFR (CKD-EPI 2020) (mL/min/1.73m2) 48.37 Glucose (74-106) mg/dL 120 H Calcium (8.5-10.1) mg/dL 10.0 Magnesium (1.8-2.4) mg/dL 2.1 Total Bilirubin (0.2-1.0) mg/dL 0.2 Conjugated Bilirubin (0.0-0.2) mg/dL 0.1 AST (15-37) U/L 23 ALT (16-63) U/L 27 Alkaline Phosphatase (46-116) U/L 98 Troponin I (<or=60) ng/L < 50 Total Protein (6.4-8.2) g/dL 8.1 Albumin (3.4-5.0) g/dL 3.5 Lipase (16-77) U/L 28 Urine Color (Yellow) Yellow Urine Clarity (Clear) Clear Urine pH (5-8) 7.5 Ur Specific [place] (1.005-1.025) 1.015 Urine Protein (Negative) mg/dL Negative Urine Ketones (Negative) mg/dL Negative Urine Blood (Negative) Negative Urine Nitrite (Negative) Negative Urine Bilirubin (Negative) Negative Urine Urobilinogen (Up to 0.2) mg/dL 0.2 Ur Leukocyte Esterase (Negative) Negative Urine Glucose (Negative) mg/dL Negative Quality:SDOH Health Related Social Needs: No Data to Display Discharge Plan Disposition Patient Disposition: Home Condition: Stable Discharge Details Clinical Impression: Constipation Primary Care Provider: Brendon Vivar ED Provider: Richy Oakes Home Meds and New Rx's Prescriptions: Continued methadone 10 mg/5 mL solution 105 mg PO QAM magnesium gluconate 27 mg magnesium (500 mg) tablet 27 mg PO BID Qty: 60 3RF calcitriol 0.5 mcg capsule 0.5 mcg PO BID Qty: 360 3RF Hold Instructions: Resume on 06/15/22. cyclobenzaprine 10 mg tablet 10 mg PO TID PRN (Reason: muscle spasm) Qty: 30 3RF diclofenac sodium 1 % gel 4 g topical QID Qty: 100 6RF Rx Instructions: apply to single knee, ankle, foot; for foot includes sole/toes/top of foot omeprazole 40 mg capsule,delayed release(DR/EC) 40 mg PO DAILY polyethylene glycol 3350 17 gram/dose powder 17 g PO DAILY clonazepam 1 mg tablet 1 mg PO BID Qty: 20 0RF calcium carbonate [Tums] 200 mg calcium (500 mg) tablet,chewable 2,000 mg PO BID Hold Instructions: Resume on 05/12/23. Please hold your nightly dose tonight and your a.m. dose tomorrow morning. gabapentin 300 mg capsule 300 mg PO BID Discharge Instructions Instructions: Magnesium Citrate (By mouth), Constipation (ED) Additional Instructions: You were seen in the emergency department for your left-sided abdominal pain. Your CT scan shows a large stool burden, this is consistent with your chronic constipation and methadone use. Your laboratory workup is reassuring that no acute emergent pathology is going on. I have provided you a bottle of magnesium citrate to take home, please drink 100 mL at a time until you have a bowel movement, you may experience increased abdominal cramping as the stool moves through your bowel but you will achieve relief most likely. Please return for any emergent concerns. Referrals: Brendon Vivar DO [Primary Care Provider] - Discharge Data Discharge Date/Time-TO BE ENTERED AT DEPARTURE: 06/20/23 18:56
--- NOTE | 2023-06-20 16:15 | DI.CT_ITS ---
Exam(s) CT ABDOMEN PELVIS W EXAM: CT ABDOMEN PELVIS W CLINICAL HISTORY: LLQ tenderness, ?divertic TECHNIQUE: Imaging Protocol: Axial computed tomography images with coronal and sagittal reformatted images were created and reviewed CONTRAST MATERIAL: Intravenous: Omnipaque 350 Contrast volume:100 mL Oral: No COMPARISON: CT CT THORACIC SPINE RECONS from 10/03/[address] CHEST WO from 10/03/[address] ABDOMEN PELVIS W from 04/11/[address] ABDOMEN PELVIS W from 04/19/[address] ABDOMEN PELVIS W from 05/03/2023 FINDINGS: ABDOMEN: Lung Bases: Normal where visualized. Liver: Normal density. No measurable mass. Portal, Superior Mesenteric, and Splenic Veins: Unremarkable. Gallbladder and Biliary Tract: No radiodense calculus or dilation. Pancreas: Normal density, no abnormal calcifications or inflammatory process. Spleen: Calcified granuloma in the spleen. Adrenals: No masses seen. Kidneys: Normal size, contour and axis. No radiodense stones or obstructive uropathy. Stable upper po le left renal cyst. No follow-up is recommended. Abdominal Aorta: Abdominal portion non-dilated. Bowel: The stomach is incompletely distended limiting evaluation. There is stool seen throughout the colon suggesting constipation. There is no evidence of bowel obstruction or bowel wall thickening. No evidence of appendicitis. Peritoneal Cavity: No ascites, collection or mesenteric inflammatory response. No free air. Lymph Nodes: Within normal limits. Bones: Within normal limits for the patient's age. Soft Tissues: Unremarkable. There is a small small fat containing right inguinal hernia. PELVIS: Bladder: The urinary bladder is incompletely distended. There is diffuse thickening of the wall of t he urinary bladder. Reproductive Organs: Unremarkable as visualized. Lymph Nodes: Within normal limits. Bones: Within normal limits for the patient's age. IMPRESSION: 1. Large amount of stool in the colon suggesting constipation. 2. Thickening of the wall of the urinary bladder. This likely is due to underdistention. Cystitis c annot be entirely excluded but is considered less likely. RADIATION DOSE DELIVERED: 1,489.58mGy.cm Total DLP DATA REPOSITORY: All CT scans at this facility are submitted to the National Radiology Data Registry (NRDR) Dose Index Registry (DIR) with the [employer] ([employer]). RADIATION OPTIMIZATION: All CT scans at this facility use at least one of these dose optimization te chniques: automated exposure control; mA and/or kV adjustment per patient size (includes targeted exa ms where dose is matched to clinical indication); or iterative reconstruction.
[2023-06-20 16:40] LABS: Lactate 1.4 mmol/L (0.6-1.4)
[2023-06-20 16:41] LABS: Abs Immature Grans 0.02 10^3/uL (0.0-0.06); Absolute Basophil Count 0.03 10^3/uL (0.0-0.2); Absolute Lymphocyte Count 2.13 10^3/uL (1.2-3.4); Absolute Monocyte Count 0.69 10^3/uL (0.1-0.8); Absolute Neutrophil Count 3.85 10^3/uL (1.2-6.7); Basophils % 0.4; Eosinophils % 2.9; HGB 12.2 g/dL (13.5-17.5); Immature Grans % 0.3; Lymphocytes % 30.8; MCH 30.7 pg (27.0-33.0); MCHC 33.9 % (32.0-36.0); MCV 91 fL (80-95); MPV 10.1 fL (8.0-11.0); Neutrophils % 55.6; Platelet Count 277 10^3/uL (130-400); RBC 3.97 10^6/uL (4.36-5.78); RDW 12.6 % (11.8-14.1); WBC 6.92 10^3/uL (4.4-10.8)
[2023-06-20] MEDS: FAMOTIDINE 20 MG in Normal Saline 100 ML 400 MG IVPB (16:59)
[2023-06-20] MEDS: Lactated Ringers 1,000 ML 1000 ML IV (17:00)
[2023-06-20] MEDS: Ondansetron 4 MG/2 ML VIAL IVP (17:00)
[2023-06-20 17:01] LABS: ALT 27 U/L (16-63); AST 23 U/L (15-37); Albumin 3.5 g/dL (3.4-5.0); Alkaline Phosphatase 98 U/L (46-116); Anion Gap 6.3 mmol/L (3-11); BUN 14 mg/dL (7-18); Bilirubin, Direct 0.1 mg/dL (0.0-0.2); Bilirubin, Total 0.2 mg/dL (0.2-1.0); CO2 33.7 mmol/L (21.0-32.0); CREATININE 1.9 mg/dL (0.70-1.30); Chloride 99 mmol/L (98-107); Estimated GFR 48.37 (mL/min/1.73m2); Glucose 120 mg/dL (74-106); Lipase 28 U/L (16-77); Magnesium 2.1 mg/dL (1.8-2.4); Potassium 3.7 mmol/L (3.5-5.1); Sodium 139 mmol/L (136-145); Total Protein 8.1 g/dL (6.4-8.2); Troponin I < 50 ng/L (<or=60)
[2023-06-20] MEDS: Normal Saline - Diluent 50 ML VIAL IJ (18:03)
[2023-06-20] MEDS: Omnipaque 350 MG/ML 100 ML BTL IJ (18:04)
[2023-06-20 18:26] LABS: Bilirubin Negative (Negative); Blood Negative (Negative); Clarity Clear (Clear); Glucose Negative (Negative); Ketones Negative (Negative); Leukocyte Esterase Negative (Negative); Nitrite Negative (Negative); Specific Gravity 1.015 (1.005-1.025); Urobilinogen 0.2 mg/dL (Up to 0.2); pH 7.5 (5-8)
== END 2023-06-20 18:56 | disposition home or self-care (01) ==
PROVIDERS: Emergency Provider Physician Assistant; PCP Family Medicine
DX: K59.00 Constipation, unspecified (principal); F11.20 Opioid dependence, uncomplicated
CPT/HCPCS: 80053; 80076; 83690; 96361; 96374; 96375; 99285; 74177; 81003; 83605; 83735; 84484; 85025; 99283; J2405; J3490

== ENCOUNTER 2023-06-24 08:29 | Emergency (ER) | payer OTHER, SELFPAY ==
[2023-06-24 08:34] VITALS: BP 149/95; PULSE 115; RESP 20; TEMP 37.5; O2SAT 98
--- NOTE | 2023-06-24 08:48 | W.ED.GENAD ---
HPI General Stated Complaint: Nk/Back Pain Mode of arrival: ambulatory. ADRIANA: 4 Date/Time Provider Initiated Documentation: 06/24/23 08:29. Limitations to Documentation: no limitations. Information obtained by: patient. History of Present Illness left side neck pain moderate reports no radiation month(s) (3) intermittent No relieving factors improve symptom(s), No exacerbating factors reported denies chest pain, fever/chills and shortness of breath Related Data Home Medications Medication Instructions Recorded Confirmed magnesium gluconate 27 mg 27 mg PO BID #60 tabs 11/08/22 06/24/23 magnesium (500 mg) tablet calcium carbonate 200 mg calcium 2,000 mg PO BID 02/02/23 06/24/23 (500 mg) chewable tablet (Tums) calcitriol 0.5 mcg capsule 0.5 mcg PO BID #360 caps 04/21/23 06/24/23 cyclobenzaprine 10 mg tablet 10 mg PO TID PRN muscle spasm #30 04/21/23 06/24/23 tabs diclofenac sodium 1 % topical gel 4 g topical QID #100 grams 04/21/23 06/24/23 methadone 10 mg/5 mL oral solution 105 mg PO QAM 06/12/23 06/24/23 omeprazole 40 mg capsule,delayed 40 mg PO DAILY 06/12/23 06/24/23 release polyethylene glycol 3350 17 17 g PO DAILY 06/12/23 06/24/23 gram/dose oral powder clonazepam 1 mg tablet 1 mg PO BID #56 tabs 06/23/23 06/24/23 gabapentin 300 mg capsule 300 mg PO BID #180 caps 06/23/23 06/24/23 Previous Rx's Medication Instructions Recorded magnesium gluconate 27 mg 27 mg PO BID #60 tabs 11/08/22 magnesium (500 mg) tablet calcitriol 0.5 mcg capsule 0.5 mcg PO BID #360 caps 04/21/23 cyclobenzaprine 10 mg tablet 10 mg PO TID PRN muscle spasm #30 04/21/23 tabs diclofenac sodium 1 % topical gel 4 g topical QID #100 grams 04/21/23 clonazepam 1 mg tablet 1 mg PO BID #56 tabs 06/23/23 gabapentin 300 mg capsule 300 mg PO BID #180 caps 06/23/23 Allergies Allergy/AdvReac Type Severity Reaction Status Date / Time codeine Allergy Intermediate pass out Verified 06/24/23 08:42 Penicillins Allergy Skin Rash Verified 06/24/23 08:42 amoxicillin AdvReac Intermediate Nausea Verified 06/24/23 08:42 dextromethorphan AdvReac Intermediate Other (See Verified 06/24/23 08:42 [From NyQuil] Comment) doxylamine [From NyQuil] AdvReac Intermediate Other (See Verified 06/24/23 08:42 Comment) pseudoephedrine [From NyQuil] AdvReac Intermediate Other (See Verified 06/24/23 08:42 Comment) Review of Systems All systems reviewed & are unremarkable except as noted in HPI and below Constitutional Constitutional: Denies chills, Denies fever(s) and Denies weakness Eyes Eyes: Denies loss of vision Cardiovascular Cardiovascular: Denies chest pain and Denies dyspnea Respiratory Respiratory: Denies cough and Denies dyspnea Gastrointestinal Gastrointestinal: Denies abdominal pain, Denies nausea and Denies vomiting Musculoskeletal Musculoskeletal: Denies joint swelling Neurologic Neurologic: Denies loss of vision and Denies weakness [facility] All Active Problems (Updated 06/24/23 @ 09:53 by Ricardo Crabtree MD) Neck pain on left side (Acute) Constipation (Acute) Grief reaction (Chronic) Pain due to dental caries (Acute) Pain, dental (Acute) Opiate dependence, continuous (Acute) Abdominal pain in male (Acute) Cholelithiasis (Acute) Abdominal pain (Acute) Hemoptysis (Acute) Lump of breast, left (Acute) Anxiety about health (Acute) Jaw pain (Acute) Cellulitis (Acute) Panic attack (Acute) Rash (Acute) Bronchitis (Acute) Cholelithiases (Acute) 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 Possible 2' Methadone, Clnzpm (?). Surg eval (+)/No further action. CKD (chronic kidney disease) stage 2, GFR 60-89 ml/min (Acute) GFR 64-65, with Hx FLORESITA and GFR < 45 Complex medical condition (Chronic) Serious electrolyte imbalances, with gynecomastia, possible MEN Dx, CKD and anemia with baseline anxiety and Hx PTSD. History of electrolyte imbalance (Acute) Neck pain on left side (Acute) with shoulder, upper back pain.. torticollis, radiating into left hip/leg Pulmonary nodule 1 cm or greater in diameter (Chronic) Therapeutic opioid induced constipation (Acute) Sphincter of Oddi dysfunction (Chronic) Abnormal CT scan, kidney (Acute) Intrahepatic bile duct dilation (Acute) Common bile duct dilatation (Acute) Abdominal pain (Acute) Iatrogenic hypocalcemia (Acute) Multiple endocrine neoplasia type I (Chronic) Chronic constipation (Chronic) Primary hyperparathyroidism (Chronic) Depression (Chronic) Hypomagnesemia (Chronic) Hypocalcemia (Chronic) Depression (Chronic) Suicidal ideation (Acute) Elevated parathyroid hormone (Acute) Family history of coronary arteriosclerosis (Chronic) Father of MS at 50, mother had MS at 42 Severe anxiety with panic (Chronic) Cellulitis (Acute) Medical History Hypocalcemia Anxiety Depression Hyperlipidemia Family history of multiple endocrine neoplasia, type 1 PTSD (post-traumatic stress disorder) Per pt. states no triggers at this time. Surgical History H/O parathyroidectomy Family History Mother Anxiety Asthma Depression Sister Anxiety Depression Father Cancer lung & stomach Depression Diabetes Hypertension MEN 1 (multiple endocrine neoplasia) Social History Smoking/Tobacco Use Status: Never Smoking risk assessment performed?: Yes Alcohol Intake: never Drug use: Rarely Substance use type: does not use and former substance user Adopted: No Caregiver/Support person: No Foster care: No Household members: none Housing: apartment Number of Children: 0 Communication Needs: None Education Level: high school Do you need help understanding health information?: Never 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 and animals: Yes (Ally) Pets and animals: dog(s) Sexually active: No Do you think of yourself as: straight/heterosexual Current gender identity: male What is your relationship status?: How often do you talk on the phone with friends or family?: twice per week How often do you get together with friends or relatives?: never Do you belong to any clubs or organized social groups?: no Panel score (0-1 are the most socially isolated patients): 0 What type of physical activity do you participate in: walking Duration: 15-30 minutes/day Frequency: 5-6 times per week Maryam/Latter-Day: Synagogue Special maryam needs: No Seatbelt use: always Helmet use: Yes Helmet use: always Drive 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 electric train 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 Exam Const General: no acute distress Orientation: alert HENMT Head: normal to inspection Ears: external ears normal General nose exam: external nose normal Mouth: moist mucous membranes Eyes General: appearance normal, both eyes and all related structures Neck Neck: normal visual inspection, no lymphadenopathy, no meningeal signs and tender Resp Effort & Inspection: normal respiratory effort and able to speak in complete sentences Cardio Rate: regular rate Skin General skin exam: no rashes or lesions noted Neuro General: patient alert and patient oriented x3 Extrem General: normal to inspection Psych Mental Status: mental status grossly normal Course Vital Signs Vital signs: Vital Signs Temperature 37.5 C 06/24/23 08:34 Pulse 115 H 06/24/23 08:34 Respiratory Rate 20 06/24/23 08:34 Blood Pressure 149/95 H 06/24/23 08:34 Pulse Oximetry 98 06/24/23 08:34 Temperature 37.5 C 06/24/23 08:34 Temperature Source Oral 06/24/23 08:34 Pulse 115 H 06/24/23 08:34 Respiratory Rate 20 06/24/23 08:34 Respiratory Effort Normal, Non-Labored 06/24/23 08:42 Blood Pressure 149/95 H 06/24/23 08:34 Blood Pressure Position Sitting 06/24/23 08:34 Pulse Oximetry 98 06/24/23 08:34 Oxygen Delivery Method Room Air 06/24/23 08:34 Oxygen Flow Rate 0 06/24/23 08:34 Pain Level 6 06/24/23 08:34 Medical Decision Making 27 yo male with hx of MEN I and frequent ER visits for various complaints, seen recently for abdominal pain with negative CT and labs and states pain has resolved, comes in with 3 or so months of nontraumatic left sided neck pain. Denies fevers, chills, weakness, has intermittent numbness down the left arm. Is stable on arrival, has pain over the left lateral mid paraspinous muscles, no midline neck pain or palpable deformities, CN II-XII intact, normal and equal peripheral pulses, intact sensation in the arms and full rom of the arms. Symptoms consistent with muscle spasm vs possible cervical radiculopathy, no findings on exam or history to suggest entities such as meningitis, dissection, and denies ivdu and no fevers so doubt entities such as spinal epidural abscess. Will treat with toradol and valium and reassess. pt declined valium, feels much better after toradol, sleeping on reassessment and awakens easily and states pain resolved. Stable for d/c, advised to f/u with pcp and return precautions given Differential Diagnosis Differential Diagnosis: muscle spasm, cervical radiculopathy Quality:SDOH Health Related Social Needs: No Data to Display Discharge Plan Disposition Patient Disposition: Home Condition: Stable Discharge Details Clinical Impression: Neck pain on left side Primary Care Provider: Brendon Vivar ED Provider: Ricardo Crabtree [place] Meds and New Rx's Prescriptions: Continued clonazepam 1 mg tablet 1 mg PO BID Qty: 56 0RF gabapentin 300 mg capsule 300 mg PO BID Qty: 180 3RF methadone 10 mg/5 mL solution 105 mg PO QAM magnesium gluconate 27 mg magnesium (500 mg) tablet 27 mg PO BID Qty: 60 3RF calcitriol 0.5 mcg capsule 0.5 mcg PO BID Qty: 360 3RF Hold Instructions: Resume on 06/15/22. cyclobenzaprine 10 mg tablet 10 mg PO TID PRN (Reason: muscle spasm) Qty: 30 3RF diclofenac sodium 1 % gel 4 g topical QID Qty: 100 6RF Rx Instructions: apply to single knee, ankle, foot; for foot includes sole/toes/top of foot omeprazole 40 mg capsule,delayed release(DR/EC) 40 mg PO DAILY polyethylene glycol 3350 17 gram/dose powder 17 g PO DAILY calcium carbonate [Tums] 200 mg calcium (500 mg) tablet,chewable 2,000 mg PO BID Hold Instructions: Resume on 05/12/23. Please hold your nightly dose tonight and your a.m. dose tomorrow morning. Discharge Instructions Additional Instructions: You likely are suffering from muscle spasm. Follow up with your primary care provider within 1-2 weeks if it continues to discuss having an outpatient MRI if you feel more ill, have new symptoms such as fevers return to the emergency department
[2023-06-24] MEDS: Ketorolac 15 MG/ML VIAL IM (09:08)
== END 2023-06-24 10:05 | disposition home or self-care (01) ==
PROVIDERS: Emergency Provider Emergency Medicine; PCP Family Medicine
DX: M54.2 Cervicalgia (principal); R20.2 Paresthesia of skin; E78.5 Hyperlipidemia, unspecified; N18.2 Chronic kidney disease, stage 2 (mild); Z79.899 Other long term (current) drug therapy
CPT/HCPCS: 96372; 99284; 99283; J1885

== ENCOUNTER 2023-06-26 11:47 | Emergency (ER) | payer OTHER, SELFPAY ==
[2023-06-26 11:55] VITALS: BP 156/95; PULSE 97; RESP 18; TEMP 37.1; O2SAT 97
== END 2023-06-26 13:50 | disposition left against medical advice (07) ==
LOC: ER 12:18
PROVIDERS: PCP Family Medicine
DX: Z53.21 Procedure and treatment not carried out due to patient leaving prior to being seen by health care provider (principal)

== ENCOUNTER 2023-06-27 07:29 | Emergency (ER) | payer OTHER, SELFPAY ==
[2023-06-27 07:35] VITALS: BP 188/95; PULSE 80; RESP 18; TEMP 36.4; O2SAT 96
[2023-06-27 07:39] VITALS: BP 188/95; PULSE 80; RESP 18; TEMP 36.4; O2SAT 96
--- NOTE | 2023-06-27 07:47 | ED.GENADUL_ITS ---
HPI General Stated Complaint: GenMedical ADRIANA: 3 Date/Time Provider Initiated Documentation: 06/27/23 07:30. HPI Narrative: 27-year-old male presents for evaluation of frozen face. Upon awakening this morning patient states that the left side of his face felt funny. He attempted to drink some coffee and it was dripping out the left side of his mouth. He states that his left eye also feels funny. Denies any numbness or tingling to his face. No fevers or chills. No chest pain or shortness of breath. He has chronic tingling to his left hand. No new numbness or tingling. No weakness in his extremities. He has recently been seen for some discomfort in his left neck which he states has been treated for muscular pain. Related Data Home Medications Medication Instructions Recorded Confirmed magnesium gluconate 27 mg 27 mg PO BID #60 tabs 11/08/22 06/27/23 magnesium (500 mg) tablet calcium carbonate 200 mg calcium 2,000 mg PO BID 02/02/23 06/27/23 (500 mg) chewable tablet (Tums) calcitriol 0.5 mcg capsule 0.5 mcg PO BID #360 caps 04/21/23 06/27/23 cyclobenzaprine 10 mg tablet 10 mg PO TID PRN muscle spasm #30 04/21/23 06/27/23 tabs diclofenac sodium 1 % topical gel 4 g topical QID #100 grams 04/21/23 06/27/23 methadone 10 mg/5 mL oral solution 105 mg PO QAM 06/12/23 06/27/23 omeprazole 40 mg capsule,delayed 40 mg PO DAILY 06/12/23 06/27/23 release polyethylene glycol 3350 17 17 g PO DAILY 06/12/23 06/27/23 gram/dose oral powder clonazepam 1 mg tablet 1 mg PO BID #56 tabs 06/23/23 06/27/23 gabapentin 300 mg capsule 300 mg PO BID #180 caps 06/23/23 06/27/23 doxycycline hyclate 100 mg capsule 100 mg PO BID #14 caps 06/27/23 prednisone 50 mg tablet 50 mg PO DAILY #7 tabs 06/27/23 valacyclovir 1 gram tablet 1,000 mg PO Q8H #21 tabs 06/27/23 (Valtrex) white petrolatum-mineral oil 56.8 1 applic ophthalmic (eye) 4-6XD 06/27/23 %-42.5 % eye ointment (Refresh PRN #3.5 grams Lacri-Lube) Previous Rx's Medication Instructions Recorded magnesium gluconate 27 mg 27 mg PO BID #60 tabs 11/08/22 magnesium (500 mg) tablet calcitriol 0.5 mcg capsule 0.5 mcg PO BID #360 caps 04/21/23 cyclobenzaprine 10 mg tablet 10 mg PO TID PRN muscle spasm #30 04/21/23 tabs diclofenac sodium 1 % topical gel 4 g topical QID #100 grams 04/21/23 clonazepam 1 mg tablet 1 mg PO BID #56 tabs 06/23/23 gabapentin 300 mg capsule 300 mg PO BID #180 caps 06/23/23 doxycycline hyclate 100 mg capsule 100 mg PO BID #14 caps 06/27/23 prednisone 50 mg tablet 50 mg PO DAILY #7 tabs 06/27/23 valacyclovir 1 gram tablet 1,000 mg PO Q8H #21 tabs 06/27/23 (Valtrex) white petrolatum-mineral oil 56.8 1 applic ophthalmic (eye) 4-6XD 06/27/23 %-42.5 % eye ointment (Refresh PRN #3.5 grams Lacri-Lube) Allergies Allergy/AdvReac Type Severity Reaction Status Date / Time codeine Allergy Intermediate pass out Verified 06/27/23 07:38 Penicillins Allergy Skin Rash Verified 06/27/23 07:38 amoxicillin AdvReac Intermediate Nausea Verified 06/27/23 07:38 dextromethorphan AdvReac Intermediate Other (See Verified 06/27/23 07:38 [From NyQuil] Comment) doxylamine [From NyQuil] AdvReac Intermediate Other (See Verified 06/27/23 07:38 Comment) pseudoephedrine [From NyQuil] AdvReac Intermediate Other (See Verified 06/27/23 07:38 Comment) Review of Systems Narrative: Remainder of review of systems otherwise negative except for as noted in the HPI x 10. 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 Possible 2' Methadone, Clnzpm (?). Surg eval (+)/No further action. CKD (chronic kidney disease) stage 2, GFR 60-89 ml/min (Acute) GFR 64-65, with Hx FLORESITA and GFR < 45 Complex medical condition (Chronic) Serious electrolyte imbalances, with gynecomastia, possible MEN Dx, CKD and anemia with baseline anxiety and Hx PTSD. History of electrolyte imbalance (Acute) Neck pain on left side (Acute) with shoulder, upper back pain.. torticollis, radiating into left hip/leg Pulmonary nodule 1 cm or greater in diameter (Chronic) Therapeutic opioid induced constipation (Acute) Sphincter of Oddi dysfunction (Chronic) Abnormal CT scan, kidney (Acute) Intrahepatic bile duct dilation (Acute) Common bile duct dilatation (Acute) Abdominal pain (Acute) Iatrogenic hypocalcemia (Acute) Multiple endocrine neoplasia type I (Chronic) Chronic constipation (Chronic) Primary hyperparathyroidism (Chronic) Depression (Chronic) Hypomagnesemia (Chronic) Hypocalcemia (Chronic) Depression (Chronic) Suicidal ideation (Acute) Elevated parathyroid hormone (Acute) Family history of coronary arteriosclerosis (Chronic) Father of NV at 50, mother had NV at 42 Severe anxiety with panic (Chronic) Cellulitis (Acute) Medical History Hypocalcemia Anxiety Depression Hyperlipidemia Family history of multiple endocrine neoplasia, type 1 PTSD (post-traumatic stress disorder) Per pt. states no triggers at this time. Surgical History H/O parathyroidectomy Family History Mother Anxiety Asthma Depression Sister Anxiety Depression Father Cancer lung & stomach Depression Diabetes Hypertension MEN 1 (multiple endocrine neoplasia) Social History Smoking/Tobacco Use Status: Never Smoking risk assessment performed?: Yes Alcohol Intake: never Drug use: Rarely Substance use type: does not use and former substance user Adopted: No Caregiver/Support person: No Foster care: No Household members: none Housing: apartment Number of Children: 0 Communication Needs: None Education Level: high school Do you need help understanding health information?: Never 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 and animals: Yes (Ally) Pets and animals: dog(s) Sexually active: No Do you think of yourself as: straight/heterosexual Current gender identity: male What is your relationship status?: How often do you talk on the phone with friends or family?: twice per week How often do you get together with friends or relatives?: never Do you belong to any clubs or organized social groups?: no Panel score (0-1 are the most socially isolated patients): 0 What type of physical activity do you participate in: walking Duration: 15-30 minutes/day Frequency: 5-6 times per week Maryam/Rastafarian: Synagogue Special maryam needs: No Seatbelt use: always Helmet use: Yes Helmet use: always Drive 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 driver material handler: No Do you feel safe at home: Yes Do you feel safe in your relationship?: Yes Additional Social history: on methadone Exam Narrative Exam Narrative: General: non-toxic, no respiratory distress, comfortable HEENT: normocephalic, atraumatic, lids and lashes normal, mild drooping to left side of mouth, PERRL, EOMI, anicteric sclera, no conjunctival injection, TMs clear bilaterally, moist oral mucosa Neck: No vertebral tenderness, no meningeal signs Card: regular rate and rhythm, S1S2, no murmurs, rubs, or gallops Lungs: good air entry, clear to auscultation bilaterally. no wheezes, rales, rhonchi, or retractions Abd: soft, non-tender, non-distended, normal bowel sounds, no rebound or guarding, no peritoneal signs Musculoskeletal: full range of motion of arms and legs, no tenderness to palpation. no clubbing, cyanosis, or edema Neurologic: GSC 15, CN 2-12 intact bilaterally with the exception of mild left facial droop, speech normal, strength normal, sensation intact distally in all four extremities, gait normal, 2+ biceps tendon reflexes, normal finger to nose, normal rapid alternating movements, no pronator drift Psych: alert and oriented Skin: no petechiae, no lesions, warm and dry Course Vital Signs Vital signs: Vital Signs Temperature 36.4 C 06/27/23 07:35 Pulse 80 06/27/23 07:35 Respiratory Rate 18 06/27/23 07:35 Blood Pressure 188/95 H 06/27/23 07:35 Pulse Oximetry 96 06/27/23 07:35 Temperature 36.4 C 06/27/23 07:39 Temperature Source Temporal Artery Scan 06/27/23 07:39 Pulse 80 06/27/23 07:39 Respiratory Rate 18 06/27/23 07:39 Respiratory Effort Normal, Non-Labored 06/27/23 07:44 Respiratory Depth Normal 06/27/23 07:44 Respiratory Pattern Normal 06/27/23 07:44 Blood Pressure 188/95 H 06/27/23 07:39 Blood Pressure Position Sitting 06/27/23 07:39 Pulse Oximetry 96 06/27/23 07:39 Oxygen Delivery Method Room Air 06/27/23 07:39 Oxygen Flow Rate 0 06/27/23 07:39 Medical Decision Making 27-year-old male presents for evaluation of frozen face. On examination he does have mild left-sided facial droop. There is decreased wrinkling to the lef t forehead. He otherwise is neurologically intact. Clinically exam is consistent with early Flower's palsy. Will check for Lyme. No rashes noted at this time. Patient will be started on prednisone, doxycycline, Valtrex. If Lyme test is positive he will require an additional prescription for doxycycline. I have recommended close follow-up with primary care. He understands indications to return. Quality:SDOH Health Related Social Needs: Health related social needs transpo insecurity Discharge Plan Disposition Patient Disposition: Home Condition: Stable Discharge Details Clinical Impression: Left-sided Flower's palsy Primary Care Provider: Brendon Vivar ED Provider: Susana Rivers Home Meds and New Rx's Prescriptions: New prednisone 50 mg tablet 50 mg PO DAILY Qty: 7 0RF doxycycline hyclate 100 mg capsule 100 mg PO BID Qty: 14 0RF valacyclovir [Valtrex] 1 gram tablet 1,000 mg PO Q8H Qty: 21 0RF Refresh Lacri-Lube 56.8-42.5 % ointment 1 applic ophthalmic (eye) 4-6XD PRNQty: 3.5 0RF No Action clonazepam 1 mg tablet 1 mg PO BID Qty: 56 0RF gabapentin 300 mg capsule 300 mg PO BID Qty: 180 3RF methadone 10 mg/5 mL solution 105 mg PO QAM magnesium gluconate 27 mg magnesium (500 mg) tablet 27 mg PO BID Qty: 60 3RF calcitriol 0.5 mcg capsule 0.5 mcg PO BID Qty: 360 3RF Hold Instructions: Resume on 06/15/22. cyclobenzaprine 10 mg tablet 10 mg PO TID PRN (Reason: muscle spasm) Qty: 30 3RF diclofenac sodium 1 % gel 4 g topical QID Qty: 100 6RF Rx Instructions: apply to single knee, ankle, foot; for foot includes sole/toes/top of foot omeprazole 40 mg capsule,delayed release(DR/EC) 40 mg PO DAILY polyethylene glycol 3350 17 gram/dose powder 17 g PO DAILY calcium carbonate [Tums] 200 mg calcium (500 mg) tablet,chewable 2,000 mg PO BID Hold Instructions: Resume on 05/12/23. Please hold your nightly dose tonight and your a.m. dose tomorrow morning. Discharge Instructions Instructions: Flower Palsy (ED) Referrals: Brendon Vivar DO [Primary Care Provider] - 3 days Discharge Data Discharge Physician: Susana Rivers
[2023-06-27] MEDS: Doxycycline Hyclate 100 MG CAP PO (07:53)
[2023-06-27] MEDS: predniSONE 20 MG TAB 60 MG PO (07:54)
[2023-06-27 07:56] LABS: Abs Immature Grans 0.04 10^3/uL (0.0-0.06); Absolute Basophil Count 0.05 10^3/uL (0.0-0.2); Absolute Eosinophil Count 0.25 10^3/uL (0.0-0.7); Absolute Lymphocyte Count 1.96 10^3/uL (1.2-3.4); Absolute Monocyte Count 0.65 10^3/uL (0.1-0.8); Absolute Neutrophil Count 3.41 10^3/uL (1.2-6.7); Basophils % 0.8; Eosinophils % 3.9; HCT 36.1 % (40.0-50.0); HGB 12.1 g/dL (13.5-17.5); Immature Grans % 0.6; Lymphocytes % 30.8; MCH 30.9 pg (27.0-33.0); MCHC 33.5 % (32.0-36.0); MCV 92 fL (80-95); MPV 10.3 fL (8.0-11.0); Monocytes % 10.2; Neutrophils % 53.7; Platelet Count 285 10^3/uL (130-400); RBC 3.92 10^6/uL (4.36-5.78); RDW 12.8 % (11.8-14.1); RDW-SD 42.5 fL; WBC 6.36 10^3/uL (4.4-10.8)
[2023-06-27 08:10] LABS: ALT 39 U/L (16-63); AST 25 U/L (15-37); Alkaline Phosphatase 103 U/L (46-116); Anion Gap 7.5 mmol/L (3-11); BUN 11 mg/dL (7-18); Bilirubin, Total 0.2 mg/dL (0.2-1.0); CO2 31.5 mmol/L (21.0-32.0); CREATININE 1.7 mg/dL (0.70-1.30); Calcium 8.3 mg/dL (8.5-10.1); Chloride 104 mmol/L (98-107); Estimated GFR 55.27 (mL/min/1.73m2); Glucose 138 mg/dL (74-106); Magnesium 1.6 mg/dL (1.8-2.4); Potassium 3.8 mmol/L (3.5-5.1); Sodium 143 mmol/L (136-145); Total Protein 7.2 g/dL (6.4-8.2)
[2023-06-27 08:18] VITALS: BP 153/79; PULSE 97; RESP 18; O2SAT 97
[2023-06-27] MEDS: valACYclovir 500 MG TAB 1000 MG PO (08:19)
[2023-06-30 12:04] LABS: Lyme Ab w Rflx to Lyme Confirm Negative (Negative)
== END 2023-06-27 08:26 | disposition home or self-care (01) ==
PROVIDERS: Emergency Provider Emergency Medicine Emergency Medical Services; PCP Family Medicine
DX: G51.0 Bell's palsy (principal)
CPT/HCPCS: 36415; 80053; 99283; 83735; 85025; 86618; 99284; J7512

== ENCOUNTER 2023-06-28 16:24 | Emergency (ER) | payer OTHER, SELFPAY ==
[2023-06-28 16:29] VITALS: BP 154/72; PULSE 114; RESP 18; TEMP 37.1; O2SAT 98
[2023-06-28 16:40] VITALS: BP 154/72; PULSE 114; RESP 18; TEMP 37.1; O2SAT 98
[2023-06-28 17:30] LABS: Abs Immature Grans 0.09 10^3/uL (0.0-0.06); Absolute Basophil Count 0.03 10^3/uL (0.0-0.2); Absolute Lymphocyte Count 1.39 10^3/uL (1.2-3.4); Absolute Monocyte Count 1.25 10^3/uL (0.1-0.8); Absolute Neutrophil Count 10.36 10^3/uL (1.2-6.7); Basophils % 0.2; HCT 36.5 % (40.0-50.0); HGB 12.2 g/dL (13.5-17.5); Immature Grans % 0.7; Lymphocytes % 10.6; MCH 30.7 pg (27.0-33.0); MCHC 33.4 % (32.0-36.0); MCV 92 fL (80-95); MPV 10.4 fL (8.0-11.0); Monocytes % 9.5; Platelet Count 310 10^3/uL (130-400); RBC 3.98 10^6/uL (4.36-5.78); RDW 12.7 % (11.8-14.1); RDW-SD 42.8 fL; WBC 13.12 10^3/uL (4.4-10.8)
[2023-06-28] MEDS: Ketorolac 15 MG/ML VIAL IVP (17:35)
[2023-06-28] MEDS: Normal Saline 1,000 ML 1000 ML IV (17:35)
[2023-06-28 17:43] LABS: ALT 44 U/L (16-63); AST 27 U/L (15-37); Albumin 3.3 g/dL (3.4-5.0); Alkaline Phosphatase 104 U/L (46-116); Anion Gap 6.6 mmol/L (3-11); BUN 11 mg/dL (7-18); Bilirubin, Total 0.2 mg/dL (0.2-1.0); CO2 32.4 mmol/L (21.0-32.0); CREATININE 1.5 mg/dL (0.70-1.30); Calcium 8.9 mg/dL (8.5-10.1); Chloride 101 mmol/L (98-107); Estimated GFR 64.23 (mL/min/1.73m2); Glucose 112 mg/dL (74-106); Potassium 4.1 mmol/L (3.5-5.1); Sodium 140 mmol/L (136-145); Total Protein 7.8 g/dL (6.4-8.2)
--- NOTE | 2023-06-28 17:49 | W.ED.GENAD ---
HPI General Stated Complaint: RespSymp Mode of arrival: ambulatory. ADRIANA: 4 Date/Time Provider Initiated Documentation: 06/28/23 16:37. Limitations to Documentation: no limitations. Information obtained by: patient and RN notes reviewed. History of Present Illness Fever, chills, runny nose, cough, congestion,, loose stools moderate and similar to prior episodes day(s) (1) constant No relieving factors improve symptom(s), No exacerbating factors reported other (Acetaminophen 4 hours ago) Related Data Home Medications Medication Instructions Recorded Confirmed magnesium gluconate 27 mg 27 mg PO BID #60 tabs 11/08/22 06/27/23 magnesium (500 mg) tablet calcium carbonate 200 mg calcium 2,000 mg PO BID 02/02/23 06/27/23 (500 mg) chewable tablet (Tums) calcitriol 0.5 mcg capsule 0.5 mcg PO BID #360 caps 04/21/23 06/27/23 cyclobenzaprine 10 mg tablet 10 mg PO TID PRN muscle spasm #30 04/21/23 06/27/23 tabs diclofenac sodium 1 % topical gel 4 g topical QID #100 grams 04/21/23 06/27/23 methadone 10 mg/5 mL oral solution 105 mg PO QAM 06/12/23 06/27/23 omeprazole 40 mg capsule,delayed 40 mg PO DAILY 06/12/23 06/27/23 release polyethylene glycol 3350 17 17 g PO DAILY 06/12/23 06/27/23 gram/dose oral powder clonazepam 1 mg tablet 1 mg PO BID #56 tabs 06/23/23 06/27/23 gabapentin 300 mg capsule 300 mg PO BID #180 caps 06/23/23 06/27/23 doxycycline hyclate 100 mg capsule 100 mg PO BID #14 caps 06/27/23 prednisone 50 mg tablet 50 mg PO DAILY #7 tabs 06/27/23 valacyclovir 1 gram tablet 1,000 mg PO Q8H #21 tabs 06/27/23 (Valtrex) white petrolatum-mineral oil 56.8 1 applic ophthalmic (eye) 4-6XD 06/27/23 %-42.5 % eye ointment (Refresh PRN #3.5 grams Lacri-Lube) Previous Rx's Medication Instructions Recorded magnesium gluconate 27 mg 27 mg PO BID #60 tabs 11/08/22 magnesium (500 mg) tablet calcitriol 0.5 mcg capsule 0.5 mcg PO BID #360 caps 04/21/23 cyclobenzaprine 10 mg tablet 10 mg PO TID PRN muscle spasm #30 04/21/23 tabs diclofenac sodium 1 % topical gel 4 g topical QID #100 grams 04/21/23 clonazepam 1 mg tablet 1 mg PO BID #56 tabs 06/23/23 gabapentin 300 mg capsule 300 mg PO BID #180 caps 06/23/23 doxycycline hyclate 100 mg capsule 100 mg PO BID #14 caps 06/27/23 prednisone 50 mg tablet 50 mg PO DAILY #7 tabs 06/27/23 valacyclovir 1 gram tablet 1,000 mg PO Q8H #21 tabs 06/27/23 (Valtrex) white petrolatum-mineral oil 56.8 1 applic ophthalmic (eye) 4-6XD 06/27/23 %-42.5 % eye ointment (Refresh PRN #3.5 grams Lacri-Lube) Allergies Allergy/AdvReac Type Severity Reaction Status Date / Time codeine Allergy Intermediate pass out Verified 06/28/23 16:34 Penicillins Allergy Skin Rash Verified 06/28/23 16:34 amoxicillin AdvReac Intermediate Nausea Verified 06/28/23 16:34 dextromethorphan AdvReac Intermediate Other (See Verified 06/28/23 16:34 [From NyQuil] Comment) doxylamine [From NyQuil] AdvReac Intermediate Other (See Verified 06/28/23 16:34 Comment) pseudoephedrine [From NyQuil] AdvReac Intermediate Other (See Verified 06/28/23 16:34 Comment) Review of Systems Constitutional Constitutional: Reports body ache(s), Reports chills, Reports fever(s), Reports headache(s) and Reports malaise Eyes Eyes: Denies eye discharge ENT Ears, Nose, Mouth, and Throat: Reports as per HPI, Denies ear discharge, Denies otalgia, Reports headache(s), Reports nasal congestion, Reports nasal discharge, Denies neck pain, Reports sore throat and Denies throat swelling Cardiovascular Cardiovascular: Denies chest pain and Denies dyspnea Respiratory Respiratory: Reports cough and Denies dyspnea Musculoskeletal Musculoskeletal: Denies neck pain Integumentary/Breasts Skin/Breast: Denies rash Neurologic Neurologic: Reports headache(s) Allergic/Immunologic Allergic/Immunologic: Denies throat swelling [facility] All Active Problems (Updated 06/28/23 @ 18:13 by Crow Gama NP) URI (upper respiratory infection) (Acute) Left-sided Flower's palsy (Acute) Neck pain on left side (Acute) Constipation (Acute) Grief reaction (Chronic) Pain due to dental caries (Acute) Pain, dental (Acute) Opiate dependence, continuous (Acute) Abdominal pain in male (Acute) Cholelithiasis (Acute) Abdominal pain (Acute) Hemoptysis (Acute) Lump of breast, left (Acute) Anxiety about health (Acute) Jaw pain (Acute) Cellulitis (Acute) Panic attack (Acute) Rash (Acute) Cholelithiases (Acute) 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 Possible 2' Methadone, Clnzpm (?). Surg eval (+)/No further action. CKD (chronic kidney disease) stage 2, GFR 60-89 ml/min (Acute) GFR 64-65, with Hx FLORESITA and GFR < 45 Complex medical condition (Chronic) Serious electrolyte imbalances, with gynecomastia, possible MEN Dx, CKD and anemia with baseline anxiety and Hx PTSD. History of electrolyte imbalance (Acute) Neck pain on left side (Acute) with shoulder, upper back pain.. torticollis, radiating into left hip/leg Pulmonary nodule 1 cm or greater in diameter (Chronic) Therapeutic opioid induced constipation (Acute) Sphincter of Oddi dysfunction (Chronic) Abnormal CT scan, kidney (Acute) Intrahepatic bile duct dilation (Acute) Common bile duct dilatation (Acute) Abdominal pain (Acute) Iatrogenic hypocalcemia (Acute) Multiple endocrine neoplasia type I (Chronic) Chronic constipation (Chronic) Primary hyperparathyroidism (Chronic) Depression (Chronic) Hypomagnesemia (Chronic) Hypocalcemia (Chronic) Depression (Chronic) Suicidal ideation (Acute) Elevated parathyroid hormone (Acute) Family history of coronary arteriosclerosis (Chronic) Father of AK at 50, mother had AK at 42 Severe anxiety with panic (Chronic) Cellulitis (Acute) Medical History Hypocalcemia Anxiety Depression Hyperlipidemia Family history of multiple endocrine neoplasia, type 1 PTSD (post-traumatic stress disorder) Per pt. states no triggers at this time. Surgical History H/O parathyroidectomy Family History Mother Anxiety Asthma Depression Sister Anxiety Depression Father Cancer lung & stomach Depression Diabetes Hypertension MEN 1 (multiple endocrine neoplasia) Social History Smoking/Tobacco Use Status: Never Smoking risk assessment performed?: Yes Alcohol Intake: never Drug use: Rarely Substance use type: does not use and former substance user Adopted: No Caregiver/Support person: No Foster care: No Household members: none Housing: apartment Number of Children: 0 Communication Needs: None Education Level: high school Do you need help understanding health information?: Never 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 and animals: Yes (Ally) Pets and animals: dog(s) Sexually active: No Do you think of yourself as: straight/heterosexual Current gender identity: male What is your relationship status?: How often do you talk on the phone with friends or family?: twice per week How often do you get together with friends or relatives?: never Do you belong to any clubs or organized social groups?: no Panel score (0-1 are the most socially isolated patients): 0 What type of physical activity do you participate in: walking Duration: 15-30 minutes/day Frequency: 5-6 times per week Maryam/Buddhism: Judaism Special maryam needs: No Seatbelt use: always Helmet use: Yes Helmet use: always 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 Exam Const General: cooperative, comfortable and no acute distress Orientation: alert and awake HENOH Head: normal to inspection, normocephalic and atraumatic Ears: hearing grossly normal bilaterally and TM's normal bilaterally General nose exam: external nose normal Face and sinus: face asymmetric (Findings consistent with previously diagnosed left-sided Flower's palsy) and no erythema Mouth: oral mucosae normal, no drooling, no muffled voice and no trismus Throat: posterior oropharynx normal Neck Neck: normal visual inspection, full ROM, no lymphadenopathy, no meningeal signs, trachea midline and supple Resp Effort & Inspection: normal respiratory effort, able to speak in complete sentences and cough Quality of cough: dry Auscultation: clear to auscultation bilaterally Cardio Rate: tachycardic Rhythm: regular rhythm Heart Sounds: S1 normal, S2 normal, normal S1 and S2, no click, no gallops, no murmurs and no rubs Skin General skin exam: no rashes or lesions noted and dry skin (warm) Neuro General: patient alert, patient awake, patient oriented x3, gait normal and moves all extremities Cognition: normal cognition Speech: speech normal Course Vital Signs Vital signs: Vital Signs Temperature 37.1 C 06/28/23 16:29 Pulse 114 H 06/28/23 16:29 Respiratory Rate 18 06/28/23 16:29 Blood Pressure 154/72 H 06/28/23 16:29 Pulse Oximetry 98 06/28/23 16:29 Temperature 37.1 C 06/28/23 16:40 Temperature Source Temporal Artery Scan 06/28/23 16:40 Pulse 114 H 06/28/23 16:40 Respiratory Rate 18 06/28/23 16:40 Respiratory Effort Normal, Non-Labored 06/28/23 17:23 Respiratory Depth Normal 06/28/23 17:23 Blood Pressure 154/72 H 06/28/23 16:40 Pulse Oximetry 98 06/28/23 16:40 Oxygen Delivery Method Room Air 06/28/23 16:40 Oxygen Flow Rate 0 06/28/23 16:40 Lab/Test Results Lab/Test Results: Laboratory Tests Range/Units 06/28/23 17:20 WBC (4.4-10.8) 10^3/uL 13.12 H RBC (4.36-5.78) 10^6/uL 3.98 L Hgb (13.5-17.5) g/dL 12.2 L Hct (40.0-50.0) % 36.5 L MCV (80-95) fL 92 MCH (27.0-33.0) pg 30.7 MCHC (32.0-36.0) % 33.4 RDW (11.8-14.1) % 12.7 Plt Count (130-400) 10^3/uL 310 MPV (8.0-11.0) fL 10.4 Immature Gran % 0.7 Neutrophils % 79.0 Lymphocytes % 10.6 Monocytes % 9.5 Eosinophils % 0.0 Basophils % 0.2 Nucleated RBC % (0.0-0.3) % 0.0 Absolute Neutrophils (1.2-6.7) 10^3/uL 10.36 H Absolute Lymphocytes (1.2-3.4) 10^3/uL 1.39 Absolute Monocytes (0.1-0.8) 10^3/uL 1.25 H Absolute Eosinophils (0.0-0.7) 10^3/uL 0.00 Absolute Basophils (0.0-0.2) 10^3/uL 0.03 Sodium (136-145) mmol/L 140 Potassium (3.5-5.1) mmol/L 4.1 Chloride (98-107) mmol/L 101 Carbon Dioxide (21.0-32.0) mmol/L 32.4 H Anion Gap (3-11) mmol/L 6.6 BUN (7-18) mg/dL 11 Creatinine (0.70-1.30) mg/dL 1.5 H Est GFR (CKD-EPI 2020) (mL/min/1.73m2) 64.23 Glucose (74-106) mg/dL 112 H Calcium (8.5-10.1) mg/dL 8.9 Total Bilirubin (0.2-1.0) mg/dL 0.2 AST (15-37) U/L 27 ALT (16-63) U/L 44 Alkaline Phosphatase (46-116) U/L 104 Total Protein (6.4-8.2) g/dL 7.8 Albumin (3.4-5.0) g/dL 3.3 L Medical Decision Making Patient presenting to the clinic for chief complaint of cold symptoms. Patient reports symptoms have been going on for the past 1 days. He does report approximately 3 days ago he was diagnosed with Flower's palsy and started on prednisone and doxycycline but has not started antiviral due to availability at pharmacy. He reports he was exposed to COVID and RSV and reports headache, malaise, loose stool, nasal congestion, and sore throat. Physical exam shows normal HEENT exam except for expected findings with left-sided Flower's palsy, tachycardia, otherwise, otherwise clear lung sounds and otherwise unremarkable exam. Patient has no signs of meningitis, peritonsillar abscess, retropharyngeal abscess, Nilesh's angina, or life-threatening Airway infection. Given tachycardia and appearance will check patient's labs, give fluids, check Fluvid Patient's labs were checked and does have chronic anemia but no significant worsening, there is a leukocytosis but I question if this is more secondary to the steroids that patient has been on progress palsy, CMP is nondiagnostic findings at patient's baseline. Patient negative for COVID flu and RSV. Did reassess patient and patient is overall improving symptoms and requesting discharge. Conservative management discussed along with follow-up and return precautions after discussion of diagnosis and plan of care patient has no further needs, questions, or concerns and states clear understanding to return to the emergency department for any worsening symptoms. This documentation was generated using [employer] dictation system, please disregard any oddities of phrase or misspellings. Lab Data Lab results reviewed: Yes I reviewed the patient's lab results. Quality:SDOH Health Related Social Needs: Health related social needs transpo insecurity Discharge Plan Disposition Patient Disposition: Home Condition: Improving Discharge Details Clinical Impression: URI (upper respiratory infection) Primary Care Provider: Brendon Vivar ED Provider: Crow Gama Home Meds and New Rx's Prescriptions: Continued clonazepam 1 mg tablet 1 mg PO BID Qty: 56 0RF gabapentin 300 mg capsule 300 mg PO BID Qty: 180 3RF methadone 10 mg/5 mL solution 105 mg PO QAM magnesium gluconate 27 mg magnesium (500 mg) tablet 27 mg PO BID Qty: 60 3RF calcitriol 0.5 mcg capsule 0.5 mcg PO BID Qty: 360 3RF Hold Instructions: Resume on 06/15/22. cyclobenzaprine 10 mg tablet 10 mg PO TID PRN (Reason: muscle spasm) Qty: 30 3RF diclofenac sodium 1 % gel 4 g topical QID Qty: 100 6RF Rx Instructions: apply to single knee, ankle, foot; for foot includes sole/toes/top of foot omeprazole 40 mg capsule,delayed release(DR/EC) 40 mg PO DAILY polyethylene glycol 3350 17 gram/dose powder 17 g PO DAILY calcium carbonate [Tums] 200 mg calcium (500 mg) tablet,chewable 2,000 mg PO BID Hold Instructions: Resume on 05/12/23. Please hold your nightly dose tonight and your a.m. dose tomorrow morning. prednisone 50 mg tablet 50 mg PO DAILY Qty: 7 0RF doxycycline hyclate 100 mg capsule 100 mg PO BID Qty: 14 0RF valacyclovir [Valtrex] 1 gram tablet 1,000 mg PO Q8H Qty: 21 0RF Refresh Lacri-Lube 56.8-42.5 % ointment 1 applic ophthalmic (eye) 4-6XD PRNQty: 3.5 0RF Discharge Instructions Instructions: Upper Respiratory Infection (ED) Additional Instructions: As discussed please stay well-hydrated and get plenty of rest during viral infection. You may use [id number] medication that matches your symptoms and that you are not allergic to. If you develop any new or significant worsening symptoms feel free to return the emergency department for reassessment otherwise follow-up with your primary care provider as needed Referrals: Brendon Vivar DO [Primary Care Provider] - Discharge Data Discharge Date/Time-TO BE ENTERED AT DEPARTURE: 06/28/23 18:23
[2023-06-28 18:03] LABS: COVID-19 PCR Negative (Negative); Influenza A PCR Negative (Negative); Influenza B PCR Negative (Negative); RSV PCR Negative (Negative)
[2023-06-28 18:04] LABS: Source NASOPHARYNX
[2023-06-28 18:22] VITALS: BP 112/75; PULSE 88; RESP 16; TEMP 37.4; O2SAT 98
== END 2023-06-28 18:23 | disposition home or self-care (01) ==
PROVIDERS: Emergency Provider Nurse Practitioner Family; PCP Family Medicine
DX: J06.9 Acute upper respiratory infection, unspecified (principal); G51.0 Bell's palsy; R51.9 Headache, unspecified; R52 Pain, unspecified; R50.9 Fever, unspecified; R53.1 Weakness; Z20.822 Contact with and (suspected) exposure to COVID-19
CPT/HCPCS: 80053; 87637; 96361; 96374; 99284; 85025; 99283; J1885

== ENCOUNTER 2023-07-01 09:44 | Emergency (ER) | payer OTHER, SELFPAY ==
[2023-07-01 09:48] VITALS: BP 179/103; PULSE 120; RESP 18; TEMP 37.9; O2SAT 98
--- NOTE | 2023-07-01 09:51 | W.ED.GENAD ---
HPI General Date/Time Provider Initiated Documentation: 07/01/23 09:51. HPI Narrative: 27 year-old male presents to ED today by POV/ambulating with a chief complaint of R lateral neck and shoulder pain, with tingling and numbness down his arm with onset over the past few days- is on cyclobenzaprine and steroids- not helping. Quality described as sharp shooting pains with pins & needles in his 4th & 5th fingers. Patient endorses that he is weak in the mornings especially and has been dropping things from his R hand, R-hand dominant. No radiation to complete numbness, inability to move arm, midline neck pain, traumatic onset, fevers. Severity is described as severe. Palliating factors include cyclobenzaprine without relief. Provoking factors include nothing specific. Events leading up to the incident/Associated Symptoms: Patient was recommended against NSAIDs as he is having elective cholecystectomy on Jul 18. Patient is a very high-utilizer of ED. Patient not anticoagulated. Related Data Home Medications Medication Instructions Recorded Confirmed magnesium gluconate 27 mg 27 mg PO BID #60 tabs 11/08/22 07/01/23 magnesium (500 mg) tablet calcium carbonate 200 mg calcium 2,000 mg PO BID 02/02/23 07/01/23 (500 mg) chewable tablet (Tums) calcitriol 0.5 mcg capsule 0.5 mcg PO BID #360 caps 04/21/23 07/01/23 cyclobenzaprine 10 mg tablet 10 mg PO TID PRN muscle spasm #30 04/21/23 07/01/23 tabs diclofenac sodium 1 % topical gel 4 g topical QID #100 grams 04/21/23 07/01/23 methadone 10 mg/5 mL oral solution 105 mg PO QAM 06/12/23 07/01/23 omeprazole 40 mg capsule,delayed 40 mg PO DAILY 06/12/23 07/01/23 release polyethylene glycol 3350 17 17 g PO DAILY 06/12/23 07/01/23 gram/dose oral powder clonazepam 1 mg tablet 1 mg PO BID #56 tabs 06/23/23 07/01/23 gabapentin 300 mg capsule 300 mg PO BID #180 caps 06/23/23 07/01/23 doxycycline hyclate 100 mg capsule 100 mg PO BID #14 caps 06/27/23 07/01/23 prednisone 50 mg tablet 50 mg PO DAILY #7 tabs 06/27/23 07/01/23 valacyclovir 1 gram tablet 1,000 mg PO Q8H #21 tabs 06/27/23 07/01/23 (Valtrex) white petrolatum-mineral oil 56.8 1 applic ophthalmic (eye) 4-6XD 06/27/23 07/01/23 %-42.5 % eye ointment (Refresh PRN #3.5 grams Lacri-Lube) Previous Rx's Medication Instructions Recorded magnesium gluconate 27 mg 27 mg PO BID #60 tabs 11/08/22 magnesium (500 mg) tablet calcitriol 0.5 mcg capsule 0.5 mcg PO BID #360 caps 04/21/23 cyclobenzaprine 10 mg tablet 10 mg PO TID PRN muscle spasm #30 04/21/23 tabs diclofenac sodium 1 % topical gel 4 g topical QID #100 grams 04/21/23 clonazepam 1 mg tablet 1 mg PO BID #56 tabs 06/23/23 gabapentin 300 mg capsule 300 mg PO BID #180 caps 06/23/23 doxycycline hyclate 100 mg capsule 100 mg PO BID #14 caps 06/27/23 prednisone 50 mg tablet 50 mg PO DAILY #7 tabs 06/27/23 valacyclovir 1 gram tablet 1,000 mg PO Q8H #21 tabs 06/27/23 (Valtrex) white petrolatum-mineral oil 56.8 1 applic ophthalmic (eye) 4-6XD 06/27/23 %-42.5 % eye ointment (Refresh PRN #3.5 grams Lacri-Lube) Allergies Allergy/AdvReac Type Severity Reaction Status Date / Time codeine Allergy Intermediate pass out Verified 07/01/23 09:51 Penicillins Allergy Skin Rash Verified 07/01/23 09:51 amoxicillin AdvReac Intermediate Nausea Verified 07/01/23 09:51 dextromethorphan AdvReac Intermediate Other (See Verified 07/01/23 09:51 [From NyQuil] Comment) doxylamine [From NyQuil] AdvReac Intermediate Other (See Verified 07/01/23 09:51 Comment) pseudoephedrine [From NyQuil] AdvReac Intermediate Other (See Verified 07/01/23 09:51 Comment) General Stated Complaint: [facility] ADRIANA: 3 Review of Systems All systems reviewed & are unremarkable except as noted in HPI and below PFSH All Active Problems (Updated 07/02/23 @ 00:03 by HAMMAD WILEY) Cervical radiculopathy (Acute) URI (upper respiratory infection) (Acute) Left-sided Flower's palsy (Acute) Neck pain on left side (Acute) Constipation (Acute) Grief reaction (Chronic) Pain due to dental caries (Acute) Pain, dental (Acute) Opiate dependence, continuous (Acute) Abdominal pain in male (Acute) Cholelithiasis (Acute) Abdominal pain (Acute) Hemoptysis (Acute) Lump of breast, left (Acute) Anxiety about health (Acute) Jaw pain (Acute) Cellulitis (Acute) Cholelithiases (Acute) 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 ED Left arm numbness (Acute) Gynecomastia, male (Acute) b/l, per CT (Jul 2022).. Possible 2' Methadone, Clnzpm (?). Surg eval (+)/No further action. CKD (chronic kidney disease) stage 2, GFR 60-89 ml/min (Acute) GFR 64-65, with Hx FLORESITA and GFR < 45 Complex medical condition (Chronic) Serious electrolyte imbalances, with gynecomastia, possible MEN Dx, CKD and anemia with baseline anxiety and Hx PTSD. History of electrolyte imbalance (Acute) Neck pain on left side (Acute) with shoulder, upper back pain.. torticollis, radiating into left hip/leg Pulmonary nodule 1 cm or greater in diameter (Chronic) Therapeutic opioid induced constipation (Acute) Sphincter of Oddi dysfunction (Chronic) Abnormal CT scan, kidney (Acute) Intrahepatic bile duct dilation (Acute) Common bile duct dilatation (Acute) Abdominal pain (Acute) Iatrogenic hypocalcemia (Acute) Multiple endocrine neoplasia type I (Chronic) Chronic constipation (Chronic) Primary hyperparathyroidism (Chronic) Depression (Chronic) Hypomagnesemia (Chronic) Hypocalcemia (Chronic) Depression (Chronic) Suicidal ideation (Acute) Elevated parathyroid hormone (Acute) Family history of coronary arteriosclerosis (Chronic) Father of VA at 50, mother had VA at 42 Severe anxiety with panic (Chronic) Cellulitis (Acute) Medical History Hypocalcemia Anxiety Depression Hyperlipidemia Family history of multiple endocrine neoplasia, type 1 PTSD (post-traumatic stress disorder) Per pt. states no triggers at this time. Surgical History H/O parathyroidectomy Family History Mother Anxiety Asthma Depression Sister Anxiety Depression Father Cancer lung & stomach Depression Diabetes Hypertension MEN 1 (multiple endocrine neoplasia) Social History Smoking/Tobacco Use Status: Never Smoking risk assessment performed?: Yes Alcohol Intake: never Drug use: Rarely Substance use type: does not use and former substance user Adopted: No Caregiver/Support person: No Foster care: No Household members: none Housing: apartment Number of Children: 0 Communication Needs: None Education Level: high school Do you need help understanding health information?: Never 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 and animals: Yes (Ally) Pets and animals: dog(s) Sexually active: No Do you think of yourself as: straight/heterosexual Current gender identity: male What is your relationship status?: How often do you talk on the phone with friends or family?: twice per week How often do you get together with friends or relatives?: never Do you belong to any clubs or organized social groups?: no Panel score (0-1 are the most socially isolated patients): 0 What type of physical activity do you participate in: walking Duration: 15-30 minutes/day Frequency: 5-6 times per week Maryam/Moravian: Sikh Special maryam needs: No Seatbelt use: always Helmet use: Yes Helmet use: always Drive 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 mobile lounge driver or operator: No Do you feel safe at home: Yes Do you feel safe in your relationship?: Yes Additional Social history: on methadone Exam Narrative Exam Narrative: GENERAL APPEARANCE: Well-nourished, non-toxic, awake and alert, atraumatic, no acute distress. SKIN: Warm, pink, dry, intact, without rashes/lesions/ulcerations. HEAD: Normocephalic, atraumatic, normal hair distribution for gender/age. EYES: Pupils PERRLA, EOMs intact without nystagmus, normal conjunctiva, no exudates on lids/lashes. ENT: Nares patent, no circumoral cyanosis, no facial swelling NECK: Supple, trachea midline, no midline vertebral crepitus/step-offs, tension in R trapezius muscle LUNGS/CHEST: Non-labored respirations, normal A/P diameter, symmetrical expansion, no chest wall deformity HEART (CV/PV): Regular rate, R radial pulse 2+, no peripheral edema, no JVD. ABDOMEN: Soft, non-distended, no guarding. MSK: Normal ROM, no swelling/deformity to bilateral UEs or LEs, moving all extremities without weakness, no cyanosis, spine midline without tenderness, normal curvature. 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 NEURO: Mental Status AAOx4 - alert to person, place, time, events No facial droop, no forehead involvement. Motor: No focal weakness - strength 5/5 in bilateral UEs and LEs, proximal and distal, symmetric. Sensory: sensation intact to light touch globally. Gait normal: patient ambulated without ataxia into ED room. PSYCH: euthymic, cooperative, pleasant, appropriate speech Course Vital Signs Vital signs: Vital Signs Temperature 37.9 C H 07/01/23 09:48 Pulse 120 H 07/01/23 09:48 Respiratory Rate 18 07/01/23 09:48 Blood Pressure 179/103 H 07/01/23 09:48 Pulse Oximetry 98 07/01/23 09:48 Temperature 37.9 C H 07/01/23 09:48 Temperature Source Temporal Artery Scan 07/01/23 09:48 Pulse 120 H 07/01/23 09:48 Respiratory Rate 18 07/01/23 09:48 Blood Pressure 179/103 H 07/01/23 09:48 Blood Pressure Position Sitting 07/01/23 09:48 Pulse Oximetry 98 07/01/23 09:48 Oxygen Delivery Method Room Air 01/16/24 09:48 Oxygen Flow Rate 0 01/16/24 09:48 Medical Decision Making This dictation utilizes [id number] dictation software and may contain unedited grammatical errors. 27 y/o M presents to ED today with a chief complaint of R lateral neck pain and radicular symptoms. Patient is high-utilizer of ED services, has seen PCP for this issue and is on cyclobenzaprine- endorsing weakness and dropping objects in the mornings. Patients' medical history: complex- currently being treated for Flower's Palsy with valacyclovir?, cholelithiasis, health anxiety. Family and social history: chronic past opiate use, former [employer]. 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 Differential / pathologies of concern include myelopathy, disc herniation, torticollis, cervical strain, epicondylitis. Diagnostic studies of: -MRI cervical spine shows minimal disc bulging, no dangerous pathology. Interventions of: -Counseled on the need to continue his muscle relaxers, gentle heat to the area, lidocaine patches, continue his outpatient steroid regimen and possibly follow-up with physical therapy visits. ED Course/Assessment/Plan: 27-year-old male presents with cervical radiculopathy/reported myelopathy in the mornings, MRI is unremarkable for this pathology, suggests likely muscle spasm as source of patient's radicular symptoms, counseled on the need for physical therapy and conservative management. Findings not consistent with myelopathy, cord syndrome. Disposition of cervical radiculopathy. Patient verbalized understanding of the plan and return to ED criteria and engaged in shared decision making. Medical Records Medical records reviewed: Yes I reviewed the patient's medical records. Imaging Data Radiologic Study: Imaging: MRI Radiologist's impression: EXAM: MR CERVICAL SPINE WO CLINICAL HISTORY: L arm myelopathy, weakness, numbness ulnar distrib TECHNIQUE: Multiplanar multisequence MRI of the cervical spine was performed without intravenous contrast. COMPARISON: MR MR CERVICAL SPINE WO from 10/18/2022 FINDINGS: CERVICOMEDULLARY JUNCTION: Intact with no evidence of cerebellar tonsillar ectopia. No obvious abnormality of the odontoid process. No evidence of Chiari 1 malformation. CERVICAL SPINAL CORD: There is no abnormal signal in the cervical spinal cord and no evidence of focal cord atrophy nor focal cord swelling. OSSEOUS:There are no cervical fractures evident. No significant osseous lesions in the cervical vertebrae. No listhesis. Normal cervical curvature. INDIVIDUAL LEVELS: C2-3: No disc herniation nor central canal stenosis. No foraminal stenosis. No facet arthropathy. C3-4: No disc herniation nor central canal stenosis.No facet arthropathy. No foraminal stenosis. C4-5: No disc herniation nor central canal stenosis.No facet arthropathy. No foraminal stenosis C5-6: No significant disc space narrowing. Normal disc height and signal. Minimal annular bulging but no evidence of significant disc herniation . no central canal stenosis. There are mild degenerative changes in the facet joints at this level evident. There are no Luschka joint osteophytes. No significant foraminal stenosis. C6-7: Normal disc height and signal. No disc herniation nor canal stenosis. No Luschka joint osteophytes. No facet arthropathy. No foraminal narrowing C7-T1: No disc herniation nor central canal stenosis. No facet arthropathy.No foraminal stenosis. IMPRESSION: 1. No significant findings on this MRI of the cervical spine. Quality:SDOH Health Related Social Needs: Health related social needs transpo insecurity Discharge Plan Disposition Patient Disposition: Home Discharge Details Clinical Impression: Cervical radiculopathy Primary Care Provider: Brendon Vivar ED Provider: Richy Oakes Home Meds and New Rx's Prescriptions: Continued clonazepam 1 mg tablet 1 mg PO BID Qty: 56 0RF gabapentin 300 mg capsule 300 mg PO BID Qty: 180 3RF methadone 10 mg/5 mL solution 105 mg PO QAM magnesium gluconate 27 mg magnesium (500 mg) tablet 27 mg PO BID Qty: 60 3RF calcitriol 0.5 mcg capsule 0.5 mcg PO BID Qty: 360 3RF Hold Instructions: Resume on 06/15/22. cyclobenzaprine 10 mg tablet 10 mg PO TID PRN (Reason: muscle spasm) Qty: 30 3RF diclofenac sodium 1 % gel 4 g topical QID Qty: 100 6RF Rx Instructions: apply to single knee, ankle, foot; for foot includes sole/toes/top of foot omeprazole 40 mg capsule,delayed release(DR/EC) 40 mg PO DAILY polyethylene glycol 3350 17 gram/dose powder 17 g PO DAILY calcium carbonate [Tums] 200 mg calcium (500 mg) tablet,chewable 2,000 mg PO BID Hold Instructions: Resume on 05/12/23. Please hold your nightly dose tonight and your a.m. dose tomorrow morning. prednisone 50 mg tablet 50 mg PO DAILY Qty: 7 0RF doxycycline hyclate 100 mg capsule 100 mg PO BID Qty: 14 0RF valacyclovir [Valtrex] 1 gram tablet 1,000 mg PO Q8H Qty: 21 0RF Refresh Lacri-Lube 56.8-42.5 % ointment 1 applic ophthalmic (eye) 4-6XD PRNQty: 3.5 0RF Discharge Instructions Instructions: Cervical Strain (ED) Additional Instructions: You were seen in the emergency department for your left arm radicular symptoms, there is no abnormality on your MRI, no spinal cord syndrome present. I suggest continuing your at home muscle relaxers and anti-inflammatories by steroid treatment, please follow-up with massage therapy and physical therapy visits. Please return for any paralysis to left arm. Referrals: Brendon Vivar DO [Primary Care Provider] - Discharge Data Discharge Date/Time-TO BE ENTERED AT DEPARTURE: 07/01/23 13:04
--- NOTE | 2023-07-01 10:45 | DI.MRI_ITS ---
Exam(s) MR CERVICAL SPINE WO EXAM: MR CERVICAL SPINE WO CLINICAL HISTORY: L arm myelopathy, weakness, numbness ulnar distrib TECHNIQUE: Multiplanar multisequence MRI of the cervical spine was performed without intravenous con trast. COMPARISON: MR MR CERVICAL SPINE WO from 10/18/2022 FINDINGS: CERVICOMEDULLARY JUNCTION: Intact with no evidence of cerebellar tonsillar ectopia. No obvious abnor mality of the odontoid process. No evidence of Chiari 1 malformation. CERVICAL SPINAL CORD: There is no abnormal signal in the cervical spinal cord and no evidence of foca l cord atrophy nor focal cord swelling. OSSEOUS:There are no cervical fractures evident. No significant osseous lesions in the cervical vert ebrae. No listhesis. Normal cervical curvature. INDIVIDUAL LEVELS: C2-3: No disc herniation nor central canal stenosis. No foraminal stenosis. No facet arthropathy. C3-4: No disc herniation nor central canal stenosis.No facet arthropathy. No foraminal stenosis. C4-5: No disc herniation nor central canal stenosis.No facet arthropathy. No foraminal stenosis C5-6: No significant disc space narrowing. Normal disc height and signal. Minimal annular bulging b ut no evidence of significant disc herniation . no central canal stenosis. There are mild degenerati ve changes in the facet joints at this level evident. There are no Luschka joint osteophytes. No si gnificant foraminal stenosis. C6-7: Normal disc height and signal. No disc herniation nor canal stenosis. No Luschka joint osteop hytes. No facet arthropathy. No foraminal narrowing C7-T1: No disc herniation nor central canal stenosis. No facet arthropathy.No foraminal stenosis. IMPRESSION: 1. No significant findings on this MRI of the cervical spine. DATA REPOSITORY:
[2023-07-01 10:47] VITALS: RESP 14
== END 2023-07-01 13:04 | disposition home or self-care (01) ==
PROVIDERS: Emergency Provider Physician Assistant; PCP Family Medicine
DX: M54.12 Radiculopathy, cervical region (principal)
CPT/HCPCS: 99284; 72141

== ENCOUNTER 2023-07-14 07:18 | Observation (INO) | payer OTHER, SELFPAY ==
[2023-07-14] VITALS (13 sets, daily range): BP systolic 112–142; BP diastolic 73–91; PULSE 80–121; RESP 14–24; TEMP 36.1–37; O2SAT 97–99
--- NOTE | 2023-07-14 07:15 | RT.EKG_ITS ---
APPROVED REPORT Exam: Resting ECG Reason for Exam: chest pain Patient Location: E HR:114 bpm ECG Measurements Heart Rate 114 AXIS MT 180 P 30 QRSd 98 QRS 54 QT 332 T 29 QTc 457 Conclusion Sinus tachycardia no acute ST changes
--- NOTE | 2023-07-14 07:30 | DI.RAD_ITS ---
Exam(s) XR CHEST 2V PA LATERAL EXAM: XR CHEST 2V PA LATERAL CLINICAL HISTORY: chest pain TECHNIQUE: 2D digital imaging was performed of the chest. Two images were obtained. PA and lateral views were obtained. COMPARISON: CR,XR XR CHEST 2V PA LATERAL from 05/25/2023 CR,XR XR CHEST 2V PA LATERAL from 06/08/2023 FINDINGS: MEDIASTINUM: Normal. HEART: Normal. PULMONARY VASCULATURE: Normal. LUNGS: Clear. PLEURAL SPACE: No pleural effusion or pneumothorax. BONE:Within normal limits for the patient's age. OTHER FINDINGS:Normal. IMPRESSION: No acute pulmonary findings. DATA REPOSITORY: RADIATION DOSE DELIVERED:
--- NOTE | 2023-07-14 07:38 | ED.GENADUL_ITS ---
HPI General Date/Time Provider Initiated Documentation: 07/14/23 07:32 . Limitations to Documentation: no limitations . Information obtained by: patient . HPI Narrative: 27-year-old gentleman with past medical history of anxiety, depression, hyperparathyroidism, presents for evaluation of left-sided chest pain. He reports symptoms started last night. He localizes the pain to a specific spot in his anterior left side chest. This morning and started radiating to his back. It does not hurt to touch, it is not worsened by exertion, he states that it hurts to take a deep breath and he feels like he cannot catch his breath. He denies any recent illnesses, no cough congestion or fever. No trauma. Related Data Home Medications Medication Instructions Recorded Confirmed magnesium gluconate 27 mg 27 mg PO BID #60 tabs 11/08/22 07/14/23 magnesium (500 mg) tablet calcium carbonate 200 mg calcium 2,000 mg PO BID 02/02/23 07/14/23 (500 mg) chewable tablet (Tums) calcitriol 0.5 mcg capsule 0.5 mcg PO BID #360 caps 04/21/23 07/14/23 diclofenac sodium 1 % topical gel 4 g topical QID #100 grams 04/21/23 07/14/23 methadone 10 mg/5 mL oral solution 105 mg PO QAM 06/12/23 07/14/23 omeprazole 40 mg capsule,delayed 40 mg PO DAILY 06/12/23 07/14/23 release polyethylene glycol 3350 17 17 g PO DAILY 06/12/23 07/14/23 gram/dose oral powder clonazepam 1 mg tablet 1 mg PO BID #56 tabs 06/23/23 07/14/23 gabapentin 300 mg capsule 300 mg PO BID #180 caps 06/23/23 07/14/23 white petrolatum-mineral oil 56.8 1 applic ophthalmic (eye) 4-6XD 06/27/23 07/14/23 %-42.5 % eye ointment (Refresh PRN #3.5 grams Lacri-Lube) cyclobenzaprine 10 mg tablet 10 mg PO TID PRN muscle spasm #30 07/04/23 07/14/23 tabs Previous Rx's Medication Instructions Recorded magnesium gluconate 27 mg 27 mg PO BID #60 tabs 11/08/22 magnesium (500 mg) tablet calcitriol 0.5 mcg capsule 0.5 mcg PO BID #360 caps 04/21/23 diclofenac sodium 1 % topical gel 4 g topical QID #100 grams 04/21/23 clonazepam 1 mg tablet 1 mg PO BID #56 tabs 06/23/23 gabapentin 300 mg capsule 300 mg PO BID #180 caps 06/23/23 white petrolatum-mineral oil 56.8 1 applic ophthalmic (eye) 4-6XD 06/27/23 %-42.5 % eye ointment (Refresh PRN #3.5 grams Lacri-Lube) cyclobenzaprine 10 mg tablet 10 mg PO TID PRN muscle spasm #30 07/04/23 tabs Allergies Allergy/AdvReac Type Severity Reaction Status Date / Time codeine Allergy Intermediate pass out Verified 07/14/23 07:26 Penicillins Allergy Skin Rash Verified 07/14/23 07:26 amoxicillin AdvReac Intermediate Nausea Verified 07/14/23 07:26 dextromethorphan AdvReac Intermediate Other (See Verified 07/14/23 07:26 [From NyQuil] Comment) doxylamine [From NyQuil] AdvReac Intermediate Other (See Verified 07/14/23 07:26 Comment) pseudoephedrine [From NyQuil] AdvReac Intermediate Other (See Verified 07/14/23 07:26 Comment) General Stated Complaint: Chest/Rib ADRIANA: 3 Exam Narrative Exam Narrative: Review of Systems: All systems reviewed & are unremarkable except as noted in HPI and below Well-developed, no acute distress NCAT PERRL, normal conjunctiva Tachycardic, no murmurs rubs or gallops Chest wall nontender to palpation Unlabored respiratory effort, clear breath sounds bilaterally Nondistended abdomen Extremities w/o deformity, no cyanosis, no edema No rashes or lesions. no focal neurologic deficits Appropriate mood and affect Course Vital Signs Vital signs: Vital Signs Temperature 37.0 C 07/14/23 07:21 Pulse 121 H 07/14/23 07:21 Respiratory Rate 14 07/14/23 07:21 Blood Pressure 142/91 H 07/14/23 07:21 Pulse Oximetry 97 07/14/23 07:21 Temperature 37.0 C 07/14/23 07:21 Temperature Source Skin 07/14/23 07:21 Pulse 121 H 07/14/23 07:21 Respiratory Rate 14 07/14/23 07:21 Respiratory Effort Normal, Non-Labored, Short of Breath 07/14/23 07:36 Respiratory Depth Normal 07/14/23 07:36 Respiratory Pattern Normal 07/14/23 07:36 Blood Pressure 142/91 H 07/14/23 07:21 Blood Pressure Position Sitting 07/14/23 07:21 Pulse Oximetry 97 07/14/23 07:21 Oxygen Delivery Method Room Air 07/14/23 07:21 Oxygen Flow Rate 0 07/14/23 07:21 Pain Level 6 07/14/23 07:36 Medical Decision Making Emergent evaluation of left-sided chest pain. Patient has no specific risk factors for ACS. He is noted to be tachycardic. No risk factors for DVT or pulmonary embolism. He has never had a blood clot before, is not on anticoagulant therapy. EKG reviewed and independently interpreted, sinus tachycardia, no acute ischemic ST segment changes. Initial plan for IV fluids, lab work. Will send D-dimer to evaluate PE risk given tachycardia and pleuritic component of chest pain. Lab work reviewed. The patient's blood work is concerning for hypernatremia at 154. Patient does have history of hyperparathyroidism, this could be part of s ome endocrine dysfunction. Unable to quickly assess osmolality as this is a send out lab. Urinalysis and urine lites have been added on. Patient denies any vomiting or dehydration duration. Does report increased urination and frequent thirst. Otherwise no specific symptoms concerning for diabetes insipidus. He has mild hypokalemia. Given his electrolyte derangement, will admit to the hospital for further management. Medical Records Medical records reviewed: Yes I reviewed the patient's medical records. Lab Data Lab results reviewed: Yes I reviewed the patient's lab results. ECG Data Attestation: I personally reviewed and interpreted this ECG (s) as follows: Interpretation: Sinus tachycardia 114, normal axis, no acute ischemic ST changes Quality:SDOH Health Related Social Needs: Health related social needs transpo insecurity PFSH All Active Problems Cervical radiculopathy (Acute) URI (upper respiratory infection) (Acute) Left-sided Flower's palsy (Acute) Neck pain on left side (Acute) Constipation (Acute) Grief reaction (Chronic) Pain due to dental caries (Acute) Pain, dental (Acute) Opiate dependence, continuous (Acute) Cellulitis (Acute) Cholelithiases (Acute) 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 Possible 2' Methadone, Clnzpm (?). Surg eval (+)/No further action. CKD (chronic kidney disease) stage 2, GFR 60-89 ml/min (Acute) GFR 64-65, with Hx FLOERSITA and GFR < 45 Complex medical condition (Chronic) Serious electrolyte imbalances, with gynecomastia, possible MEN Dx, CKD and anemia with baseline anxiety and Hx PTSD. History of electrolyte imbalance (Acute) Neck pain on left side (Acute) with shoulder, upper back pain.. torticollis, radiating into left hip/leg Pulmonary nodule 1 cm or greater in diameter (Chronic) Therapeutic opioid induced constipation (Acute) Sphincter of Oddi dysfunction (Chronic) Abnormal CT scan, kidney (Acute) Intrahepatic bile duct dilation (Acute) Common bile duct dilatation (Acute) Abdominal pain (Acute) Iatrogenic hypocalcemia (Acute) Multiple endocrine neoplasia type I (Chronic) Chronic constipation (Chronic) Primary hyperparathyroidism (Chronic) Depression (Chronic) Hypomagnesemia (Chronic) Hypocalcemia (Chronic) Depression (Chronic) Suicidal ideation (Acute) Elevated parathyroid hormone (Acute) Family history of coronary arteriosclerosis (Chronic) Father of ID at 50, mother had ID at 42 Severe anxiety with panic (Chronic) Cellulitis (Acute) Medical History Hypocalcemia Anxiety Depression Hyperlipidemia Family history of multiple endocrine neoplasia, type 1 PTSD (post-traumatic stress disorder) Per pt. states no triggers at this time. Surgical History H/O parathyroidectomy Family History Mother Anxiety Asthma Depression Sister Anxiety Depression Father Cancer lung & stomach Depression Diabetes Hypertension MEN 1 (multiple endocrine neoplasia) Social History Smoking/Tobacco Use Status: Never Smoking risk assessment performed?: Yes Alcohol Intake: never Drug use: Rarely Substance use type: does not use and former substance user Adopted: No Caregiver/Support person: No Foster care: No Household members: none Housing: apartment Number of Children: 0 Communication Needs: None Education Level: high school Do you need help understanding health information?: Never 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 and animals: Yes (Ally) Pets and animals: dog(s) Sexually active: No Do you think of yourself as: straight/heterosexual Current gender identity: male What is your relationship status?: How often do you talk on the phone with friends or family?: twice per week How often do you get together with friends or relatives?: never Do you belong to any clubs or organized social groups?: no Panel score (0-1 are the most socially isolated patients): 0 What type of physical activity do you participate in: walking Duration: 15-30 minutes/day Frequency: 5-6 times per week Maryam/Rastafarian: Muslim Special maryam needs: No Seatbelt use: always Helmet use: Yes Helmet use: always Drive 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 commercial 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 Discharge Plan Discharge Details Chief Complaint: Chest/Rib Admit Date/Time: 07/14/23 09:27 Admit Provider: Brett Sanchez Attending Provider: Brett Sanchez Primary Care Provider: Brendon Vivar ED Provider: Jeovany Elias Discharge Data Discharge Date/Time-TO BE ENTERED AT DEPARTURE: 07/14/23 10:17
[2023-07-14] MEDS: Ketorolac 15 MG/ML VIAL 10 MG IVP (07:49)
[2023-07-14] MEDS: Normal Saline 1,000 ML 1000 ML IV (07:50)
[2023-07-14 08:02] LABS: Abs Immature Grans 0.03 10^3/uL (0.0-0.06); Absolute Basophil Count 0.05 10^3/uL (0.0-0.2); Absolute Eosinophil Count 0.26 10^3/uL (0.0-0.7); Absolute Lymphocyte Count 2.35 10^3/uL (1.2-3.4); Absolute Monocyte Count 0.85 10^3/uL (0.1-0.8); Absolute Neutrophil Count 4.28 10^3/uL (1.2-6.7); Basophils % 0.6; Eosinophils % 3.3; HCT 33.6 % (40.0-50.0); HGB 11.5 g/dL (13.5-17.5); Immature Grans % 0.4; Lymphocytes % 30.1; MCH 31.3 pg (27.0-33.0); MCHC 34.2 % (32.0-36.0); MCV 91 fL (80-95); MPV 10.1 fL (8.0-11.0); Monocytes % 10.9; Neutrophils % 54.7; Platelet Count 256 10^3/uL (130-400); RBC 3.68 10^6/uL (4.36-5.78); RDW 12.9 % (11.8-14.1); RDW-SD 42.5 fL; WBC 7.82 10^3/uL (4.4-10.8)
[2023-07-14 08:19] LABS: ALT 49 U/L (16-63); AST 19 U/L (15-37); Alkaline Phosphatase 116 U/L (46-116); Anion Gap 9.9 mmol/L (3-11); BUN 13 mg/dL (7-18); Bilirubin, Total 0.2 mg/dL (0.2-1.0); CO2 32.1 mmol/L (21.0-32.0); CREATININE 1.4 mg/dL (0.70-1.30); Calcium 9.1 mg/dL (8.5-10.1); Chloride 112 mmol/L (98-107); Estimated GFR 69.77 (mL/min/1.73m2); Glucose 105 mg/dL (74-106); Potassium 3.3 mmol/L (3.5-5.1); Sodium 154 mmol/L (136-145); Total Protein 7.3 g/dL (6.4-8.2)
[2023-07-14] MEDS: Normal Saline Flush 10 ML SYR IVP (08:38)
[2023-07-14 08:43] LABS: D-Dimer 317 ng/mlFEU (<500)
[2023-07-14 08:53] LABS: BE (Venous) 6 mmol/L (-2-3); HCO3 (Venous) 32 mmol/L (23-28); O2 Sat (Venous) 69 %; TCO2 (Venous) 30 mmol/L (24-29); pH (Venous) 7.32 (7.31-7.41); pO2 (Venous) 38 mmHg
[2023-07-14 08:56] LABS: pCO2 (Venous) 63 mmHg (41-51)
[2023-07-14 09:05] LABS: Bilirubin Negative (Negative); Blood Negative (Negative); Clarity Clear (Clear); Glucose Negative (Negative); Ketones Negative (Negative); Leukocyte Esterase Negative (Negative); Nitrite Negative (Negative); Urobilinogen 0.2 mg/dL (Up to 0.2)
[2023-07-14 09:18] LABS: Sodium, Urine 21 mmol/L
[2023-07-14 09:21] LABS: COMMENT (LAB VIEW ONLY) 33.34 mg/dL
[2023-07-14 09:22] LABS: PROTEIN < 6.0 mg/dL
--- NOTE | 2023-07-14 09:24 | NUR.NOTE ---
Accessed chart to determine orders for EKG and to determine whether or not one needs to be cancelled. Only one order active. Nursing Note:
[2023-07-14] MEDS: Calcium Carbonate *TUMS* 500 MG CHEW 2000 MG PO (11:19)
[2023-07-14] MEDS: Gabapentin 300 MG CAP PO (11:19)
[2023-07-14] MEDS: clonazePAM 1 MG TAB PO (11:19)
[2023-07-14] MEDS: Diclofenac 1% Gel 100 GM TUBE TP (11:21)
[2023-07-14 11:31] LABS: Lab Add On Test DONE
[2023-07-14 11:54] LABS: Anion Gap 4.5 mmol/L (3-11); BUN 11 mg/dL (7-18); CO2 33.5 mmol/L (21.0-32.0); CREATININE 1.2 mg/dL (0.70-1.30); Calcium 8.9 mg/dL (8.5-10.1); Chloride 104 mmol/L (98-107); Estimated GFR 83.95 (mL/min/1.73m2); Glucose 92 mg/dL (74-106); Sodium 142 mmol/L (136-145)
[2023-07-14 12:05] LABS: Hemoglobin A1C 5.2 % (<5.7)
--- NOTE | 2023-07-14 13:35 | HPE_ITS ---
Date of service: 07/14/23 Time of Service: 09:30 Assessment and Plan Assessment and plan (1) Hypernatremia: Status: Acute Assessment and plan: Na 154 corrected in ED with NS 1 l bolus repeated level as an inpatient 142, no IVF at this time (2) Hypokalemia: Status: Acute Assessment and plan: Potassium 3.3 corrected to 4.1 today (3) Chest pain: Status: Inactive Assessment and plan: non-cardiac as per description, resolved Ketorolac received in ED No further c/o chest pain this afternoon History of Present Illness History of Present Illness Chief Complaint: left-sided chest pain, anxiety N arrative: This 27-year-old male patient with past medical history of anxiety,MEN 1 as per patient, opiate dependency on methadone, depression, hyperparathyroidism presented to the emergency room with intermittent today for evaluation of left-sided chest pain. Patient reported symptoms starting last night and able to localize pain to a specific spot; anterior left chest. Patient also stated that pain radiating to his back. In the ED pain was not reproducible to touch not worsening on exertion but patient mentioned pain worsening with deep breathing and feeling that he was unable to catch his breath. Patient denied recent illness, cough, congestion, fever, or trauma. Labs in the emergency room were remarkable for sodium 154, potassium 3.3, creatinine 1.4, H&H 11.5 and 33.6. Urine sodium was 21, osmo studies pending. EKG showed sinus rhythm rate 114 and chest x-ray was negative for any acute pulmonary findings. In the ED the patient received 1 L of normal saline. The hospitalist was consulted and admitted the patient to the medical surgical floor with telemetry. On arrival to the floor, the patient reported resolution of chest pain, reported having had change in vision initially with this event but none at this time. Denies shortness of breath, nausea vomiting or constipation, dysuria. Patient reported having not drank as much as usual in the past 2 to 3 days, reports polyphagia and polyuria and increased thrist now. Potassium replacement was given.Telemetry showed SR HR 79. STAT repeat BMP at 11:25 showed correction of sodium of 12 mEq/L with a sodium level at 142. Nursing staff called and informed not to administer any IVF to patient at this time; none was ordered. Patient called later today and wanted to go home. Repeated sodium was 141, no symptoms, no chest pain, tremor and change in necrological or mental status, no nausea or vomting.. Patient will go home and follow-up with his PCP. 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 Possible 2' Methadone, Clnzpm (?). Surg eval (+)/No further action. CKD (chronic kidney disease) stage 2, GFR 60-89 ml/min (Acute) GFR 64-65, with Hx FLORESITA and GFR < 45 Complex medical condition (Chronic) Serious electrolyte imbalances, with gynecomastia, possible MEN Dx, CKD and anemia with baseline anxiety and Hx PTSD. History of electrolyte imbalance (Acute) Neck pain on left side (Acute) with shoulder, upper back pain.. torticollis, radiating into left hip/leg Pulmonary nodule 1 cm or greater in diameter (Chronic) Therapeutic opioid induced constipation (Acute) Sphincter of Oddi dysfunction (Chronic) Abnormal CT scan, kidney (Acute) Intrahepatic bile duct dilation (Acute) Common bile duct dilatation (Acute) Abdominal pain (Acute) Iatrogenic hypocalcemia (Acute) Multiple endocrine neoplasia type I (Chronic) Chronic constipation (Chronic) Primary hyperparathyroidism (Chronic) Depression (Chronic) Hypomagnesemia (Chronic) Hypocalcemia (Chronic) Depression (Chronic) Suicidal ideation (Acute) Elevated parathyroid hormone (Acute) Family history of coronary arteriosclerosis (Chronic) Father of OR at 50, mother had OR at 42 Severe anxiety with panic (Chronic) Cellulitis (Acute) Medical History Hypocalcemia Anxiety Depression Hyperlipidemia Family history of multiple endocrine neoplasia, type 1 PTSD (post-traumatic stress disorder) Per pt. states no triggers at this time. Surgical History H/O parathyroidectomy Family History Mother Anxiety Asthma Depression Sister Anxiety Depression Father Cancer lung & stomach Depression Diabetes Hypertension MEN 1 (multiple endocrine neoplasia) Social History Smoking/Tobacco Use Status: Never Smoking risk assessment performed?: Yes Alcohol Intake: never Drug use: Rarely Substance use type: does not use and former substance user Adopted: No Caregiver/Support person: No Foster care: No Household members: none Housing: apartment Number of Children: 0 Communication Needs: None Education Level: high school Do you need help understanding health information?: Never 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 and animals: Yes (Ally) Pets and animals: dog(s) Sexually active: No Do you think of yourself as: straight/heterosexual Current gender identity: male What is your relationship status?: How often do you talk on the phone with friends or family?: twice per week How often do you get together with friends or relatives?: never Do you belong to any clubs or organized social groups?: no Panel score (0-1 are the most socially isolated patients): 0 What type of physical activity do you participate in: walking Duration: 15-30 minutes/day Frequency: 5-6 times per week Maryam/Jain: Sabianist Special maryam needs: No Seatbelt use: always Helmet use: Yes Helmet use: always Drive 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 driver sales: No Do you feel safe at home: Yes Do you feel safe in your relationship?: Yes Additional Social history: on methadone Meds Allergies and Home Medications Allergies Allergy/AdvReac Type Severity Reaction Status Date / Time codeine Allergy Intermediate pass out Verified 07/14/23 07:26 Penicillins Allergy Skin Rash Verified 07/14/23 07:26 amoxicillin AdvReac Intermediate Nausea Verified 07/14/23 07:26 dextromethorphan AdvReac Intermediate Other (See Verified 07/14/23 07:26 [From NyQuil] Comment) doxylamine [From NyQuil] AdvReac Intermediate Other (See Verified 07/14/23 07:26 Comment) pseudoephedrine [From NyQuil] AdvReac Intermediate Other (See Verified 07/14/23 07:26 Comment) Home Medications Medication Instructions Recorded Confirmed Type magnesium gluconate 27 mg 27 mg PO BID #60 tabs 11/08/22 07/14/23 Rx magnesium (500 mg) tablet calcium carbonate 200 mg calcium 2,000 mg PO BID 02/02/23 07/14/23 History (500 mg) chewable tablet (Tums) calcitriol 0.5 mcg capsule 0.5 mcg PO BID #360 caps 04/21/23 07/14/23 Rx diclofenac sodium 1 % topical gel 4 g topical QID #100 grams 04/21/23 07/14/23 Rx methadone 10 mg/5 mL oral solution 105 mg PO QAM 06/12/23 07/14/23 History omeprazole 40 mg capsule,delayed 40 mg PO DAILY 06/12/23 07/14/23 History release polyethylene glycol 3350 17 17 g PO DAILY 06/12/23 07/14/23 History gram/dose oral powder clonazepam 1 mg tablet 1 mg PO BID #56 tabs 06/23/23 07/14/23 Rx gabapentin 300 mg capsule 300 mg PO BID #180 caps 06/23/23 07/14/23 Rx white petrolatum-mineral oil 56.8 1 applic ophthalmic (eye) 4-6XD 06/27/23 07/14/23 Rx %-42.5 % eye ointment (Refresh PRN #3.5 grams Lacri-Lube) cyclobenzaprine 10 mg tablet 10 mg PO TID PRN muscle spasm #30 07/04/23 07/14/23 Rx tabs Exam Narrative Exam Narrative: Constitutional The patient in bed comfortable and cooperative during the interview. The patient is without acute distress and has average body habitus/is obese/ is thin. HENMT: Head is atraumatic, normocephalic, no lymphadenopathy. Facial structures with normal appearance Eyes: Well aligned, intact ROM Neck: Normal ROM, no meningeal signs Neuro:alert and oriented to self, person, place time and situation. No neurological focal deficit Chest:Chest is symmetrical and normal appearance Resp: Normal respiratory pattern, speaks in full sentences, unlabored breathing, clear lung bilaterally Cardio: regular rhythm, S1, S2, no murmur, capillary refill<3 sec., bilateral radial and dorsalis pedis pulses are positive, palpable GI: Abdomen is not distended, soft and non tender, bowel sounds are present : Negative Costovertebral angle tenderness, no bladder distension Back/spine/Pelvis: No back tenderness, normal alignment Integumentary: No skin lesions or rash Extremities: strength 5/5 to bilateral lower and upper extremities Psych: RASS 0, congruent mood and normal affect. Results Labs 07/14/23 07:54 07/14/23 16:15 Labs: Laboratory Results - last 24 hr 07/14/23 07/14/23 07/14/23 07:54 08:42 08:42 WBC 7.82 RBC 3.68 L Hgb 11.5 L Hct 33.6 L MCV 91 MCH 31.3 MCHC 34.2 RDW 12.9 Plt Count 256 MPV 10.1 Immature Gran % 0.4 Neutrophils % 54.7 Lymphocytes % 30.1 Monocytes % 10.9 Eosinophils % 3.3 Basophils % 0.6 Nucleated RBC % 0.0 Absolute Neutrophils 4.28 Absolute Lymphocytes 2.35 Absolute Monocytes 0.85 H Absolute Eosinophils 0.26 Absolute Basophils 0.05 D-Dimer 317 VBG pH VBG pCO2 VBG pO2 VBG HCO3 VBG Total CO2 VBG O2 Saturation VBG Base Excess Sodium 154 H Potassium 3.3 L Chloride 112 H Carbon Dioxide 32.1 H Anion Gap 9.9 BUN 13 Creatinine 1.4 H Est GFR (CKD-EPI 2020) 69.77 Glucose 105 Hemoglobin A1c 5.2 Calcium 9.1 Total Bilirubin 0.2 AST 19 ALT 49 Alkaline Phosphatase 116 Total Protein 7.3 Albumin 3.0 L TSH 1.90 Urine Color Yellow Urine Clarity Clear Urine pH 6.0 Ur Specific [place] 1.010 Urine Protein Negative Urine Ketones Negative Urine Blood Negative Urine Nitrite Negative Urine Bilirubin Negative Urine Urobilinogen 0.2 Ur Leukocyte Esterase Negative Ur Random Creatinine Cancelled 33.34 U Random Total Protein < 6.0 U [place] Prot/Creat Ratio Ur Random Sodium 21 Urine Glucose Negative Add-On Test Request 07/14/23 07/14/23 07/14/23 08:49 11:25 11:31 WBC RBC Hgb Hct MCV MCH MCHC RDW Plt Count MPV Immature Gran % Neutrophils % Lymphocytes % Monocytes % Eosinophils % Basophils % Nucleated RBC % Absolute Neutrophils Absolute Lymphocytes Absolute Monocytes Absolute Eosinophils Absolute Basophils D-Dimer VBG pH 7.32 VBG pCO2 63 H* VBG pO2 38 VBG HCO3 32 H VBG Total CO2 30 H VBG O2 Saturation 69 VBG Base Excess 6 H Sodium 142 D Potassium 4.0 Chloride 104 Carbon Dioxide 33.5 H Anion Gap 4.5 BUN 11 Creatinine 1.2 Est GFR (CKD-EPI 2020) 83.95 Glucose 92 Hemoglobin A1c Calcium 8.9 Total Bilirubin AST ALT Alkaline Phosphatase Total Protein Albumin TSH Urine Color Urine Clarity Urine pH Ur Specific [place] Urine Protein Urine Ketones Urine Blood Urine Nitrite Urine Bilirubin Urine Urobilinogen Ur Leukocyte Esterase Ur Random Creatinine U Random Total Protein U [place] Prot/Creat Ratio Ur Random Sodium Urine Glucose Add-On Test Request DONE Last Vital Signs Temp 36.1 C L 07/14/23 10:30 Pulse 97 H 07/14/23 10:30 Resp 16 07/14/23 10:30 BP 127/85 07/14/23 10:30 Pulse Ox 99 07/14/23 10:30 Time Spent Time spent with Patient: >75 minutes Time was spent: preparing to see the patient(eg.review tests), obtaining and/or reviewing separately otained hiistory, ordering medications,tests, procedures, referring, communicating with other health medicare biller, indepentently interpreting results, counseling the patient and care coordination
--- NOTE | 2023-07-14 15:10 | PHA.REVIEW2 ---
Pharmacy Admission Review Admission Clinical Review Admission Pharmacy Review: codeine Allergy (Intermediate, Verified 07/14/23 07:26) pass out Penicillins Allergy (Verified 07/14/23 07:26) Skin Rash amoxicillin Adverse Reaction (Intermediate, Verified 07/14/23 07:26) Nausea dextromethorphan [From NyQuil] Adverse Reaction (Intermediate, Verified 07/14/23 07:26) Other (See Comment) doxylamine [From NyQuil] Adverse Reaction (Intermediate, Verified 07/14/23 07:26) Other (See Comment) pseudoephedrine [From NyQuil] Adverse Reaction (Intermediate, Verified 07/14/23 07:26) Other (See Comment) Resuscitation Status Full Code Height 5 ft 10 in Weight 120 kg Pharmacy Admission Review Renal Dosing Renal Dosing: BUN 11 mg/dL (7-18) 07/14/23 11:25 Creatinine 1.2 mg/dL (0.70-1.30) 07/14/23 11:25 Medications needing adjustments: Reviewed (CrCl 117.9 mL/min) Anticoagulation Anticoagulation: Hgb 11.5 g/dL (13.5-17.5) L 07/14/23 07:54 Hct 33.6 % (40.0-50.0) L 07/14/23 07:54 Plt Count 256 10^3/uL (130-400) 07/14/23 07:54 Creatinine 1.2 mg/dL (0.70-1.30) 07/14/23 11:25 DVT Prophylaxis: N/A (None at this time) Relevant Labs Relevant Labs: Sodium 142 mmol/L (136-145) D 07/14/23 11:25 Potassium 4.0 mmol/L (3.5-5.1) 07/14/23 11:25 Chloride 104 mmol/L (98-107) 07/14/23 11:25 Electrolytes, C-Reactive P, ESR: Reviewed (Na 142, K 3.3 - repeat labs pending. VBG pCO2 63) Cardiac Review BP, HR, EF%: Reviewed (BP WNL, HR 103) QTc Review QTc: Reviewed (457 at 07/14/23) IV to PO Switch IV Medications: Reviewed Home Meds Home Med List reviewed: Intervened Relevent Home Meds Not ordered & why?: On home med list but not ordered: Calcitriol and methadone Not on home med list but recently filled: amitriptyline filled 05/27 for 60 day supply. Reached out to provider Current Meds Current Medication Order Review: Reviewed
--- NOTE | 2023-07-14 15:50 | W.PM.DS.N ---
Date of service: 07/14/23 Time of Service: 15:50 Discharge Plan Disposition Patient Disposition: Home Condition: Good Discharge Details Reason For Visit: Hypernatremia,chest pain Admit Date/Time: 07/14/23 09:27 Admit Provider: Brett Sanchez Attending Provider: Brett Sanchez Primary Care Provider: Brendon Vivar Hospital Course Hospital Course: HISTORY & PHYSICAL EXAMINATION PATIENT NAME: Pedro Pablo Cortes UNIT #: [id number] ADMITTING PROVIDER: Chari Lynch APRN PRIMARY CARE PROVIDER: BRENDON VIVAR DO DATE OF ADMIT: 07/14/23 : 1995 Date of service: 07/14/23 Time of Service: 09:30 Assessment and Plan Assessment and plan (1) Hypernatremia: Status: Acute Assessment and plan: Na 154 corrected in ED with NS 1 l bolus repeated level as an inpatient 142, no IVF at this time (2) Hypokalemia: Status: Acute Assessment and plan: Potassium 3.3 corrected to 4.1 today (3) Chest pain: Status: Inactive Assessment and plan: non-cardiac as per description, resolved Ketorolac received in ED No further c/o chest pain this afternoon History of Present Illness History of Present Illness Chief Complaint: left-sided chest pain, anxiety Narrative: This 27-year-old male patient with past medical history of anxiety,MEN 1 as per patient, opiate dependency on methadone, depression, hyperparathyroidism presented to the emergency room with intermittent today for evaluation of left-sided chest pain. Patient reported symptoms starting last night and able to localize pain to a specific spot; anterior left chest. Patient also stated that pain radiating to his back. In the ED pain was not reproducible to touch not worsening on exertion but patient mentioned pain worsening with deep breathing and feeling that he was unable to catch his breath. Patient denied recent illness, cough, congestion, fever, or trauma. Labs in the emergency room were remarkable for sodium 154, potassium 3.3, creatinine 1.4, H&H 11.5 and 33.6. Urine sodium was 21, osmo studies pending. EKG showed sinus rhythm rate 114 and chest x-ray was negative for any acute pulmonary findings. In the ED the patient received 1 L of normal saline. The hospitalist was consulted and admitted the patient to the medical surgical floor with telemetry. On arrival to the floor, the patient reported resolution of chest pain, reported having had change in vision initially with this event but none at this time. Denies shortness of breath, nausea vomiting or constipation, dysuria. Patient reported having not drank as much as usual in the past 2 to 3 days, reports polyphagia and polyuria and increased thrist now. Potassium replacement was given.Telemetry showed SR HR 79. STAT repeat BMP at 11:25 showed correction of sodium of 12 mEq/L with a sodium level at 142. Nursing staff called and informed not to administer any IVF to patient at this time; none was ordered.Moreover, the patient was eating and drinking well. Patient called later today and wanted to go home. Repeated sodium was 141, no symptoms, no chest pain, tremor and change in necrological or mental status, no nausea or vomting. Patient will go home and call his PCP's office tomorrow for follow-up with his PCP within [address] Sanchez Home Meds and New Rx's Prescriptions: Continued clonazepam 1 mg tablet 1 mg PO BID Qty: 56 0RF gabapentin 300 mg capsule 300 mg PO BID Qty: 180 3RF methadone 10 mg/5 mL solution 105 mg PO QAM magnesium gluconate 27 mg magnesium (500 mg) tablet 27 mg PO BID Qty: 60 3RF calcitriol 0.5 mcg capsule 0.5 mcg PO BID Qty: 360 3RF Hold Instructions: Resume on 06/15/22. diclofenac sodium 1 % gel 4 g topical QID Qty: 100 6RF Rx Instructions: apply to single knee, ankle, foot; for foot includes sole/toes/top of foot omeprazole 40 mg capsule,delayed release(DR/EC) 40 mg PO DAILY polyethylene glycol 3350 17 gram/dose powder 17 g PO DAILY cyclobenzaprine 10 mg tablet 10 mg PO TID PRN (Reason: muscle spasm) Qty: 30 3RF calcium carbonate [Tums] 200 mg calcium (500 mg) tablet,chewable 2,000 mg PO BID Hold Instructions: Resume on 05/12/23. Please hold your nightly dose tonight and your a.m. dose tomorrow morning. Refresh Lacri-Lube 56.8-42.5 % ointment 1 applic ophthalmic (eye) 4-6XD PRNQty: 3.5 0RF Discharge Instructions Stand Alone Forms: Nursing Discharge Form Referrals: Brendon Vivar DO [Primary Care Provider] - (Please call your primary care practitioner in the morning for a follow up this week hypernatremia Na 154, request to leave once Na corrected, was getting work-up for DI ) Activity:: Activity as Tolerated Equipment/Supplies:: No Equipment Needed Diet:: Low Sodium Discharge Orders Discharge Orders: Discharge Order (Routine); Ordered 07/14/23 Ordered By: Chari Lynch DS: Summary Time Spent with Patient providing and/or coordinating discharge services: Greater than 30 minutes Status at Discharge Functional status at discharge: independent ambulation Overall status at discharge: patient is back to baseline Mental Status: mental status grossly normal Speech and Movement: speech and movement normal Mood: congruent mood Affect: normal affect Quality:SDOH Health Related Social Needs: Health related social needs transpo insecurity Exam Narrative Exam Narrative: Neck: Normal ROM, no meningeal signs Neuro:alert and oriented X3 without neurological focal deficit Resp: Normal respiratory pattern, clear lung bilaterally Cardio: regular rhythm, S1, S2, no murmur GI: Abdomen is not distended, soft and non tender, bowel sounds are present : no bladder distension Extremities: strength 5/5 to bilateral lower and upper extremities Psych: RASS 0, congruent mood and normal affect. Psych Mental Status: mental status grossly normal Speech and Movement: speech and movement normal Mood: congruent mood Affect: normal affect DS: Data Vitals/I&O Vitals and I&O: Vital Signs Temperature 36.1 C L 07/14/23 15:44 Temperature Source Tympanic 07/14/23 15:44 Pulse 80 07/14/23 15:44 Pulse Rhythm Regular 07/14/23 10:30 Pulse 103 H 07/14/23 09:40 Respiratory Rate 24 07/14/23 15:44 Respiratory Effort Normal, Non-Labored 07/14/23 10:30 Respiratory Depth Normal 07/14/23 10:30 Respiratory Pattern Normal 07/14/23 10:30 Blood Pressure 112/73 07/14/23 15:44 Blood Pressure Position Sitting 07/14/23 07:21 Pulse Oximetry 98 07/14/23 15:44 Oxygen Delivery Method Room Air 07/14/23 15:44 Oxygen Flow Rate 0 07/14/23 15:44 Pain Level 0 07/14/23 15:44 Intake & Output 07/13/23 07/14/23 07/14/23 23:59 11:59 23:59 Intake Total Output Total 0 / 0 Balance 0 Weight 120 kg Intake: IV Output: Urine 0 / 0 Stool 0 / 0 Data Completed and Pending Labs on day of discharge: Labs from last 24 hours 07/14/23 07/14/23 07/14/23 17:00 15:48 11:31 WBC RBC Hgb Hct MCV MCH MCHC RDW Plt Count MPV Immature Gran % Neutrophils % Lymphocytes % Monocytes % Eosinophils % Basophils % Nucleated RBC % Absolute Neutrophils Absolute Lymphocytes Absolute Monocytes Absolute Eosinophils Absolute Basophils D-Dimer VBG pH VBG pCO2 VBG pO2 VBG HCO3 VBG Total CO2 VBG O2 Saturation VBG Base Excess Sodium Cancelled Pending Potassium Cancelled Pending Chloride Cancelled Pending Carbon Dioxide Cancelled Pending Anion Gap Cancelled Pending BUN Cancelled Pending Creatinine Cancelled Pending Est GFR (CKD-EPI 2020) Cancelled Pending Glucose Cancelled Pending Hemoglobin A1c Serum Osmolality Calcium Cancelled Pending Total Bilirubin AST ALT Alkaline Phosphatase Total Protein Albumin TSH Urine Color Urine Clarity Urine pH Ur Specific [place] Urine Protein Urine Ketones Urine Blood Urine Nitrite Urine Bilirubin Urine Urobilinogen Ur Leukocyte Esterase Urine Osmolality Ur Random Creatinine U Random Total Protein U [place] Prot/Creat Ratio Ur Random Sodium Urine Glucose Add-On Test Request DONE 07/14/23 07/14/23 07/14/23 11:25 09:33 08:49 WBC RBC Hgb Hct MCV MCH MCHC RDW Plt Count MPV Immature Gran % Neutrophils % Lymphocytes % Monocytes % Eosinophils % Basophils % Nucleated RBC % Absolute Neutrophils Absolute Lymphocytes Absolute Monocytes Absolute Eosinophils Absolute Basophils D-Dimer VBG pH 7.32 VBG pCO2 63 H* VBG pO2 38 VBG HCO3 32 H VBG Total CO2 30 H VBG O2 Saturation 69 VBG Base Excess 6 H Sodium 142 D Pending Potassium 4.0 Pending Chloride 104 Pending Carbon Dioxide 33.5 H Pending Anion Gap 4.5 Pending BUN 11 Pending Creatinine 1.2 Pending Est GFR (CKD-EPI 2020) 83.95 Pending Glucose 92 Pending Hemoglobin A1c Serum Osmolality Calcium 8.9 Pending Total Bilirubin AST ALT Alkaline Phosphatase Total Protein Albumin TSH Urine Color Urine Clarity Urine pH Ur Specific [place] Urine Protein Urine Ketones Urine Blood Urine Nitrite Urine Bilirubin Urine Urobilinogen Ur Leukocyte Esterase Urine Osmolality Ur Random Creatinine U Random Total Protein U [place] Prot/Creat Ratio Ur Random Sodium Urine Glucose Add-On Test Request 07/14/23 07/14/23 07/14/23 08:42 08:42 07:54 WBC 7.82 RBC 3.68 L Hgb 11.5 L Hct 33.6 L MCV 91 MCH 31.3 MCHC 34.2 RDW 12.9 Plt Count 256 MPV 10.1 Immature Gran % 0.4 Neutrophils % 54.7 Lymphocytes % 30.1 Monocytes % 10.9 Eosinophils % 3.3 Basophils % 0.6 Nucleated RBC % 0.0 Absolute Neutrophils 4.28 Absolute Lymphocytes 2.35 Absolute Monocytes 0.85 H Absolute Eosinophils 0.26 Absolute Basophils 0.05 D-Dimer 317 VBG pH VBG pCO2 VBG pO2 VBG HCO3 VBG Total CO2 VBG O2 Saturation VBG Base Excess Sodium 154 H Potassium 3.3 L Chloride 112 H Carbon Dioxide 32.1 H Anion Gap 9.9 BUN 13 Creatinine 1.4 H Est GFR (CKD-EPI 2020) 69.77 Glucose 105 Hemoglobin A1c 5.2 Serum Osmolality Pending Calcium 9.1 Total Bilirubin 0.2 AST 19 ALT 49 Alkaline Phosphatase 116 Total Protein 7.3 Albumin 3.0 L TSH 1.90 Urine Color Yellow Urine Clarity Clear Urine pH 6.0 Ur Specific [place] 1.010 Urine Protein Negative Urine Ketones Negative Urine Blood Negative Urine Nitrite Negative Urine Bilirubin Negative Urine Urobilinogen 0.2 Ur Leukocyte Esterase Negative Urine Osmolality Pending Ur Random Creatinine 33.34 Cancelled U Random Total Protein < 6.0 U [place] Prot/Creat Ratio Ur Random Sodium 21 Urine Glucose Negative Add-On Test Request PFSH All Active Problems (Updated 07/14/23 @ 18:19 by Chari Lynch APRN) Hypokalemia (Acute) Hypernatremia (Acute) Cervical radiculopathy (Acute) URI (upper respiratory infection) (Acute) Left-sided Flower's palsy (Acute) Neck pain on left side (Acute) Constipation (Acute) Grief reaction (Chronic) Pain due to dental caries (Acute) Pain, dental (Acute) Opiate dependence, continuous (Acute) Cellulitis (Acute) Cholelithiases (Acute) 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 Possible 2' Methadone, Clnzpm (?). Surg eval (+)/No further action. CKD (chronic kidney disease) stage 2, GFR 60-89 ml/min (Acute) GFR 64-65, with Hx FLORESITA and GFR < 45 Complex medical condition (Chronic) Serious electrolyte imbalances, with gynecomastia, possible MEN Dx, CKD and anemia with baseline anxiety and Hx PTSD. History of electrolyte imbalance (Acute) Neck pain on left side (Acute) with shoulder, upper back pain.. torticollis, radiating into left hip/leg Pulmonary nodule 1 cm or greater in diameter (Chronic) Therapeutic opioid induced constipation (Acute) Sphincter of Oddi dysfunction (Chronic) Abnormal CT scan, kidney (Acute) Intrahepatic bile duct dilation (Acute) Common bile duct dilatation (Acute) Abdominal pain (Acute) Iatrogenic hypocalcemia (Acute) Multiple endocrine neoplasia type I (Chronic) Chronic constipation (Chronic) Primary hyperparathyroidism (Chronic) Depression (Chronic) Hypomagnesemia (Chronic) Hypocalcemia (Chronic) Depression (Chronic) Suicidal ideation (Acute) Elevated parathyroid hormone (Acute) Family history of coronary arteriosclerosis (Chronic) Father of RI at 50, mother had RI at 42 Severe anxiety with panic (Chronic) Cellulitis (Acute) Medical History Hypocalcemia Anxiety Depression Hyperlipidemia Family history of multiple endocrine neoplasia, type 1 PTSD (post-traumatic stress disorder) Per pt. states no triggers at this time. Surgical History H/O parathyroidectomy Family History Mother Anxiety Asthma Depression Sister Anxiety Depression Father Cancer lung & stomach Depression Diabetes Hypertension MEN 1 (multiple endocrine neoplasia) Social History Smoking/Tobacco Use Status: Never Smoking risk assessment performed?: Yes Alcohol Intake: never Drug use: Rarely Substance use type: does not use and former substance user Adopted: No Caregiver/Support person: No Foster care: No Household members: none Housing: apartment Number of Children: 0 Communication Needs: None Education Level: high school Do you need help understanding health information?: Never 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 and animals: Yes (Ally) Pets and animals: dog(s) Sexually active: No Do you think of yourself as: straight/heterosexual Current gender identity: male What is your relationship status?: How often do you talk on the phone with friends or family?: twice per week How often do you get together with friends or relatives?: never Do you belong to any clubs or organized social groups?: no Panel score (0-1 are the most socially isolated patients): 0 What type of physical activity do you participate in: walking Duration: 15-30 minutes/day Frequency: 5-6 times per week Maryam/Christian: Hoahaoism Special maryam needs: No Seatbelt use: always Helmet use: Yes Helmet use: always Drive 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 distribution 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 Time Spent with Patient Time Spent with Patient: <45 minutes Time was spent: preparing to see the patient(eg.review tests), obtaining and/or reviewing separately otained hiistory, ordering medications,tests, procedures, referring, communicating with other health critical care paramedic, indepentently interpreting results, counseling the patient and care coordination
[2023-07-14 16:42] LABS: Anion Gap 4.7 mmol/L (3-11); BUN 10 mg/dL (7-18); CO2 32.3 mmol/L (21.0-32.0); CREATININE 1.3 mg/dL (0.70-1.30); Calcium 8.9 mg/dL (8.5-10.1); Chloride 104 mmol/L (98-107); Estimated GFR 76.26 (mL/min/1.73m2); Glucose 96 mg/dL (74-106); Potassium 3.7 mmol/L (3.5-5.1); Sodium 141 mmol/L (136-145)
[2023-07-14 17:42] LABS: Osmolality, Urine 141 mOsm/kg (150-1150)
[2023-07-14 17:54] LABS: Osmolality Serum 289 mOsm/kg (275-295)
== END 2023-07-14 18:55 | disposition home or self-care (01) | DRG 641 ==
LOC: ER 07:28 → MS 10:49
PROVIDERS: Nurse Practitioner Acute Care; Admitting Provider Family Medicine; Emergency Provider Emergency Medicine; PCP Family Medicine; Visit Provider Family Medicine
DX: E87.0 Hyperosmolality and hypernatremia (principal); F11.20 Opioid dependence, uncomplicated; R45.851 Suicidal ideations; E87.6 Hypokalemia; F32.A Depression, unspecified; R07.89 Other chest pain; Z79.899 Other long term (current) drug therapy; R00.0 Tachycardia, unspecified; E89.2 Postprocedural hypoparathyroidism; E78.5 Hyperlipidemia, unspecified; Z83.41 Family history of multiple endocrine neoplasia [MEN] syndrome; F43.10 Post-traumatic stress disorder, unspecified; M54.12 Radiculopathy, cervical region; K08.89 Other specified disorders of teeth and supporting structures; N18.2 Chronic kidney disease, stage 2 (mild); D64.9 Anemia, unspecified; R91.1 Solitary pulmonary nodule; K59.09 Other constipation; E31.21 Multiple endocrine neoplasia [MEN] type I; K59.03 Drug induced constipation; T40.2X5A Adverse effect of other opioids, initial encounter; Z82.49 Family history of ischemic heart disease and other diseases of the circulatory system; F41.0 Panic disorder [episodic paroxysmal anxiety]
CPT/HCPCS: 00123; 36415; 80048; 80053; 82805; 83935; 93005; 96361; 96374; 99285; 71046; 81003; 82565; 83036; 83930; 84156; 84300; 84443; 85025; 85379; 93010; 99234; J1885; J3480

== ENCOUNTER 2023-07-15 08:33 | Emergency (ER) | payer OTHER, SELFPAY ==
[2023-07-15] VITALS (34 sets, daily range): BP systolic 107–144; BP diastolic 62–70; PULSE 70–113; RESP 11–29; TEMP 36.9–37.1; O2SAT 88–100
--- NOTE | 2023-07-15 08:30 | RT.EKG_ITS ---
APPROVED REPORT Exam: Resting ECG Reason for Exam: Chest Pain Patient Location: E HR:114 bpm ECG Measurements Heart Rate 114 AXIS IN 171 P 40 QRSd 97 QRS 50 QT 328 T 7 QTc 453 Conclusion Sinus tachycardia...rate> 99 Physician: no stemi
--- NOTE | 2023-07-15 08:52 | ED.GENADUL_ITS ---
HPI General Date/Time Provider Initiated Documentation: 07/15/23 08:39 . HPI Narrative: 27 year-old male presents to ED today by POV/ambulating with a chief complaint of continued chest pain- had this chest pain yesterday, was admitted mid-morning and discharged around 6pm- his chest pain had resolved by then. He was initially admitted for hypernatremia of 154 which did normalize throughout the day with onset of continued chest pain this morning around 0600. Quality described as heaviness in his L mid-ribs, no radiation to dizziness, diaphoresis, endorses shortness of breath when walking, denies abdominal pain, nausea/vomiting, altered mentation. Severity is described as moderate. Palliating factors include Tylenol one dose without resolution. Provoking factors include nothing specific. Events leading up to the incident/Associated Symptoms: Patient is frequent utilizer of ED. Patient not anticoagulated. Related Data Home Medications Medication Instructions Recorded Confirmed magnesium gluconate 27 mg 27 mg PO BID #60 tabs 11/08/22 07/15/23 magnesium (500 mg) tablet calcium carbonate 200 mg calcium 2,000 mg PO BID 02/02/23 07/15/23 (500 mg) chewable tablet (Tums) calcitriol 0.5 mcg capsule 0.5 mcg PO BID #360 caps 04/21/23 07/15/23 diclofenac sodium 1 % topical gel 4 g topical QID #100 grams 04/21/23 07/15/23 methadone 10 mg/5 mL oral solution 105 mg PO QAM 06/12/23 07/15/23 omeprazole 40 mg capsule,delayed 40 mg PO DAILY 06/12/23 07/15/23 release polyethylene glycol 3350 17 17 g PO DAILY 06/12/23 07/15/23 gram/dose oral powder clonazepam 1 mg tablet 1 mg PO BID #56 tabs 06/23/23 07/15/23 gabapentin 300 mg capsule 300 mg PO BID #180 caps 06/23/23 07/15/23 white petrolatum-mineral oil 56.8 1 applic ophthalmic (eye) 4-6XD 06/27/23 07/15/23 %-42.5 % eye ointment (Refresh PRN #3.5 grams Lacri-Lube) cyclobenzaprine 10 mg tablet 10 mg PO TID PRN muscle spasm #30 07/04/23 07/15/23 tabs Previous Rx's Medication Instructions Recorded magnesium gluconate 27 mg 27 mg PO BID #60 tabs 11/08/22 magnesium (500 mg) tablet calcitriol 0.5 mcg capsule 0.5 mcg PO BID #360 caps 04/21/23 diclofenac sodium 1 % topical gel 4 g topical QID #100 grams 04/21/23 clonazepam 1 mg tablet 1 mg PO BID #56 tabs 06/23/23 gabapentin 300 mg capsule 300 mg PO BID #180 caps 06/23/23 white petrolatum-mineral oil 56.8 1 applic ophthalmic (eye) 4-6XD 06/27/23 %-42.5 % eye ointment (Refresh PRN #3.5 grams Lacri-Lube) cyclobenzaprine 10 mg tablet 10 mg PO TID PRN muscle spasm #30 07/04/23 tabs Allergies Allergy/AdvReac Type Severity Reaction Status Date / Time codeine Allergy Intermediate pass out Verified 07/15/23 12:31 Penicillins Allergy Skin Rash Verified 07/15/23 12:31 amoxicillin AdvReac Intermediate Nausea Verified 07/15/23 12:31 dextromethorphan AdvReac Intermediate Other (See Verified 07/15/23 12:31 [From NyQuil] Comment) doxylamine [From NyQuil] AdvReac Intermediate Other (See Verified 07/15/23 12:31 Comment) pseudoephedrine [From NyQuil] AdvReac Intermediate Other (See Verified 07/15/23 12:31 Comment) General Stated Complaint: Chest Pain ADRIANA: 3 Review of Systems All systems reviewed & are unremarkable except as noted in HPI and below Exam Narrative Exam Narrative: GENERAL APPEARANCE: Well-nourished, non-toxic, awake and alert, atraumatic, no acute distress. SKIN: Warm, pink, dry, intact, without rashes/lesions/ulcerations. HEAD: Normocephalic, atraumatic, normal hair distribution for gender/age. EYES: Pupils PERRLA, EOMs intact without nystagmus, normal conjunctiva, no exudates on lids/lashes. ENT: Nares patent, no circumoral cyanosis, no facial swelling NECK: Supple, trachea midline, painless cervical ROM. LUNGS/CHEST: Lungs CTA bilaterally- no rhonchi/rales/wheezes diffusely, non- labored respirations, normal A/P diameter, symmetrical expansion, no chest wall deformity, non-pleuritic pain reported in L mid-ribs area without exacerbation with palpation. HEART (CV/PV): Regular rate and rhythm without murmur, no peripheral edema, no JVD. ABDOMEN: Soft, non-distended, no guarding, no tenderness. MSK: Normal ROM, no swelling/deformity to bilateral UEs or LEs, moving all extremities without weakness, no cyanosis, spine midline without tenderness, normal curvature. NEURO: Mental Status AAOx4 - alert to person, place, time, events No facial droop, no forehead involvement. Motor: No focal weakness - strength 5/5 in bilateral UEs and LEs, proximal and distal, symmetric. Sensory: sensation intact to light touch globally. Gait normal: patient ambulated without ataxia into ED room. PSYCH: euthymic, cooperative, pleasant, appropriate speech Course Vital Signs Vital signs: Vital Signs Temperature 37.1 C 07/15/23 08:36 Pulse 108 H 07/15/23 08:36 Respiratory Rate 13 07/15/23 08:36 Blood Pressure 144/70 H 07/15/23 08:36 Pulse Oximetry 100 07/15/23 08:36 Temperature 37.1 C 07/15/23 08:36 Temperature Source Oral 07/15/23 08:36 Pulse 108 H 07/15/23 08:36 Respiratory Rate 13 07/15/23 08:36 Blood Pressure 144/70 H 07/15/23 08:36 Blood Pressure Position Supine 07/15/23 08:36 Pulse Oximetry 100 07/15/23 08:36 Oxygen Delivery Method Room Air 07/15/23 08:36 Oxygen Flow Rate 0 07/15/23 08:36 Pain Level 7 07/15/23 08:36 Medical Decision Making This dictation utilizes [id number] dictation software and may contain unedited grammatical errors. [ ] presents to ED today with a chief complaint of [ ]. [ ]. Patients' medical history: [ ]. Family and social history: [ ]. Pertinent exam findings / vital signs include benign cardiopulmonary exam, neuro intact, benign abdomen. Differential / pathologies of concern include [ ]. Diagnostic studies of: -EKG, CBC, CMP, lipase, magnesium, troponin I, BNP, CK, CRP/ESR, TSH. D-dimer was performed yesterday and was negative. -EKG shows sinus tachycardia 114 with P waves followed by narrow complex QRS with normal axis deviation, good R wave progression, normal QT QTc, no ST changes. -CBC shows no leukocytosis, HgB baseline -CMP shows no hypernatremia -ESR elevated, CRP mild elev 0.8 -VBG vastly improved from yesterday, no hypercapnia -mild low mag, would improve with OTC supplements/dietary intake -Patients PTH send-out taken yesterday is still out -negative CXR yesterday Interventions of: -1g Tylenol PO, 10mg Ketorlac PO. ED Course/Assessment/Plan: Patient with extremely high ED utilization and presents after admission yesterday for hyponatremia which normalized with continued chest pain which she has been seen frequently for with negative workups, serial troponins are negative, he had a negative D-dimer prior to admission yesterday without new trauma or unstable anginal symptoms, he has no cardiac personal history, suspect musculoskeletal rib pain, patient has no elevation of white blood cells and his abdomen is nonperitoneal, patient has high anxiety over health conditions, counseled on Tylenol and NSAIDs as needed. Findings not consistent with ACS, chest trauma, acute abdominal pathology. Disposition of Chest Pain of Uncertain Etiology. Patient verbalized understanding of the plan and return to ED criteria and engaged in shared decision making. Medical Records Medical records reviewed: Yes I reviewed the patient's medical records. Lab Data Lab results reviewed: Yes I reviewed the patient's lab results. Labs: Laboratory Tests Range/Units 07/15/23 07/15/23 07/15/23 09:00 09:47 11:45 WBC (4.4-10.8) 10^3/uL 7.77 RBC (4.36-5.78) 10^6/uL 3.67 L Hgb (13.5-17.5) g/dL 11.6 L Hct (40.0-50.0) % 33.6 L MCV (80-95) fL 92 MCH (27.0-33.0) pg 31.6 MCHC (32.0-36.0) % 34.5 RDW (11.8-14.1) % 13.0 Plt Count (130-400) 10^3/uL 236 MPV (8.0-11.0) fL 11.1 H Immature Gran % 0.3 Neutrophils % 59.3 Lymphocytes % 26.4 Monocytes % 10.7 Eosinophils % 3.0 Basophils % 0.3 Nucleated RBC % (0.0-0.3) % 0.0 Absolute Neutrophils (1.2-6.7) 10^3/uL 4.62 Absolute Lymphocytes (1.2-3.4) 10^3/uL 2.05 Absolute Monocytes (0.1-0.8) 10^3/uL 0.83 H Absolute Eosinophils (0.0-0.7) 10^3/uL 0.23 Absolute Basophils (0.0-0.2) 10^3/uL 0.02 ESR (0-15) mm/hr 40 H VBG pH (7.31-7.41) 7.44 H VBG pCO2 (41-51) mmHg 44 VBG pO2 mmHg 44 VBG HCO3 (23-28) mmol/L 30 H VBG Total CO2 (24-29) mmol/L 28 VBG O2 Saturation % 84 VBG Base Excess (-2-3) mmol/L 6 H VBG Lactate (0.6-1.4) mmol/L 1.6 H Sodium Cancelled 141 Potassium Cancelled 3.7 Chloride Cancelled 103 Carbon Dioxide Cancelled 33.2 H Anion Gap Cancelled 4.8 BUN Cancelled 13 Creatinine Cancelled 1.4 H Est GFR (CKD-EPI 2020) Cancelled 69.77 Glucose Cancelled 117 H Calcium Cancelled 8.7 Magnesium Cancelled 1.7 L Total Bilirubin Cancelled 0.3 AST Cancelled 24 ALT Cancelled 41 Alkaline Phosphatase Cancelled 109 Creatine Kinase Cancelled 105 Troponin I Cancelled < 50 < 50 C-Reactive Protein Cancelled 0.80 H NT-Pro-B Natriuret Pep Cancelled 230 Total Protein Cancelled 7.0 Albumin Cancelled 2.8 L Lipase Cancelled 23 TSH Cancelled 1.51 Quality:SDOH Health Related Social Needs: Health related social needs transpo insecurity PFSH All Active Problems (Updated 07/15/23 @ 12:28 by ANDREW Coleman) Chest pain of uncertain etiology (Acute) Hypernatremia (Acute) Cervical radiculopathy (Acute) URI (upper respiratory infection) (Acute) Left-sided Flower's palsy (Acute) Neck pain on left side (Acute) Constipation (Acute) Grief reaction (Chronic) Opiate dependence, continuous (Acute) Cellulitis (Acute) Cholelithiases (Acute) 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 Possible 2' Methadone, Clnzpm (?). Surg eval (+)/No further action. CKD (chronic kidney disease) stage 2, GFR 60-89 ml/min (Acute) GFR 64-65, with Hx FLORESITA and GFR < 45 Complex medical condition (Chronic) Serious electrolyte imbalances, with gynecomastia, possible MEN Dx, CKD and anemia with baseline anxiety and Hx PTSD. History of electrolyte imbalance (Acute) Neck pain on left side (Acute) with shoulder, upper back pain.. torticollis, radiating into left hip/leg Pulmonary nodule 1 cm or greater in diameter (Chronic) Therapeutic opioid induced constipation (Acute) Sphincter of Oddi dysfunction (Chronic) Abnormal CT scan, kidney (Acute) Intrahepatic bile duct dilation (Acute) Common bile duct dilatation (Acute) Abdominal pain (Acute) Iatrogenic hypocalcemia (Acute) Multiple endocrine neoplasia type I (Chronic) Chronic constipation (Chronic) Primary hyperparathyroidism (Chronic) Depression (Chronic) Hypomagnesemia (Chronic) Hypocalcemia (Chronic) Depression (Chronic) Suicidal ideation (Acute) Elevated parathyroid hormone (Acute) Family history of coronary arteriosclerosis (Chronic) Father of KS at 50, mother had KS at 42 Severe anxiety with panic (Chronic) Cellulitis (Acute) Medical History Hypocalcemia Anxiety Depression Hyperlipidemia Family history of multiple endocrine neoplasia, type 1 PTSD (post-traumatic stress disorder) Per pt. states no triggers at this time. Surgical History H/O parathyroidectomy Family History Mother Anxiety Asthma Depression Sister Anxiety Depression Father Cancer lung & stomach Depression Diabetes Hypertension MEN 1 (multiple endocrine neoplasia) Social History Smoking/Tobacco Use Status: Never Smoking risk assessment performed?: Yes Alcohol Intake: never Drug use: Rarely Substance use type: does not use and former substance user Adopted: No Caregiver/Support person: No Foster care: No Household members: none Housing: apartment Number of Children: 0 Communication Needs: None Education Level: high school Do you need help understanding health information?: Never 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 and animals: Yes (Ally) Pets and animals: dog(s) Sexually active: No Do you think of yourself as: straight/heterosexual Current gender identity: male What is your relationship status?: How often do you talk on the phone with friends or family?: twice per week How often do you get together with friends or relatives?: never Do you belong to any clubs or organized social groups?: no Panel score (0-1 are the most socially isolated patients): 0 What type of physical activity do you participate in: walking Duration: 15-30 minutes/day Frequency: 5-6 times per week Maryam/Holiness: Hoahaoism Special maryam needs: No Seatbelt use: always Helmet use: Yes Helmet use: always Drive 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 driver messenger: No Do you feel safe at home: Yes Do you feel safe in your relationship?: Yes Additional Social history: on methadone Discharge Plan Disposition Patient Disposition: Home Condition: Stable Discharge Details Clinical Impression: Chest pain of uncertain etiology Primary Care Provider: Brendon Vivar ED Provider: Richy Oakes Home Meds and New Rx's Prescriptions: Continued clonazepam 1 mg tablet 1 mg PO BID Qty: 56 0RF gabapentin 300 mg capsule 300 mg PO BID Qty: 180 3RF methadone 10 mg/5 mL solution 105 mg PO QAM magnesium gluconate 27 mg magnesium (500 mg) tablet 27 mg PO BID Qty: 60 3RF calcitriol 0.5 mcg capsule 0.5 mcg PO BID Qty: 360 3RF Hold Instructions: Resume on 06/15/22. diclofenac sodium 1 % gel 4 g topical QID Qty: 100 6RF Rx Instructions: apply to single knee, ankle, foot; for foot includes sole/toes/top of foot omeprazole 40 mg capsule,delayed release(DR/EC) 40 mg PO DAILY polyethylene glycol 3350 17 gram/dose powder 17 g PO DAILY cyclobenzaprine 10 mg tablet 10 mg PO TID PRN (Reason: muscle spasm) Qty: 30 3RF calcium carbonate [Tums] 200 mg calcium (500 mg) tablet,chewable 2,000 mg PO BID Hold Instructions: Resume on 05/12/23. Please hold your nightly dose tonight and your a.m. dose tomorrow morning. Refresh Lacri-Lube 56.8-42.5 % ointment 1 applic ophthalmic (eye) 4-6XD PRNQty: 3.5 0RF Discharge Instructions Instructions: Chest Pain (ED), Costochondritis (ED) Additional Instructions: You were seen in the emergency department after discharge last night for continued chest pain, you received multiple negative workups for this chest pain. Please use Tylenol and ibuprofen as needed for pain, apply gentle heat to the area of pain, again cardiac chest pain will often involve shortness of breath getting progressively worse with any exertion as well as feelings of dizziness and profound sweating. Blood clot in your lungs was ruled out yesterday, your sodium level has normalized, you have mildly low magnesium but you have [id number] supplements on a prescription basis at home. Please follow-up with the [facility] Internal Med providers and obtaining baseline cardiac studies and more frequent visits for your extensive healthcare needs. Please return to the ER for chest pain with exertion, chest pain with fever and cough, any other emergent concerns. Referrals: Brendon Vivar DO [Primary Care Provider] - Discharge Data Discharge Date/Time-TO BE ENTERED AT DEPARTURE: 07/15/23 13:01
[2023-07-15 09:21] LABS: BE (Venous) 6 mmol/L (-2-3); HCO3 (Venous) 30 mmol/L (23-28); O2 Sat (Venous) 84 %; TCO2 (Venous) 28 mmol/L (24-29); pCO2 (Venous) 44 mmHg (41-51); pH (Venous) 7.44 (7.31-7.41); pO2 (Venous) 44 mmHg
[2023-07-15 09:26] LABS: Lactate 1.6 mmol/L (0.6-1.4)
[2023-07-15 09:27] LABS: Abs Immature Grans 0.02 10^3/uL (0.0-0.06); Absolute Basophil Count 0.02 10^3/uL (0.0-0.2); Absolute Eosinophil Count 0.23 10^3/uL (0.0-0.7); Absolute Lymphocyte Count 2.05 10^3/uL (1.2-3.4); Absolute Monocyte Count 0.83 10^3/uL (0.1-0.8); Absolute Neutrophil Count 4.62 10^3/uL (1.2-6.7); Basophils % 0.3; HCT 33.6 % (40.0-50.0); HGB 11.6 g/dL (13.5-17.5); Immature Grans % 0.3; Lymphocytes % 26.4; MCH 31.6 pg (27.0-33.0); MCHC 34.5 % (32.0-36.0); MCV 92 fL (80-95); MPV 11.1 fL (8.0-11.0); Monocytes % 10.7; Neutrophils % 59.3; Platelet Count 236 10^3/uL (130-400); RBC 3.67 10^6/uL (4.36-5.78); RDW-SD 42.1 fL; WBC 7.77 10^3/uL (4.4-10.8)
[2023-07-15 09:32] LABS: ESR 40 mm/hr (0-15)
[2023-07-15 10:19] LABS: ALT 41 U/L (16-63); AST 24 U/L (15-37); Albumin 2.8 g/dL (3.4-5.0); Alkaline Phosphatase 109 U/L (46-116); Anion Gap 4.8 mmol/L (3-11); BUN 13 mg/dL (7-18); Bilirubin, Total 0.3 mg/dL (0.2-1.0); CO2 33.2 mmol/L (21.0-32.0); CREATININE 1.4 mg/dL (0.70-1.30); Calcium 8.7 mg/dL (8.5-10.1); Chloride 103 mmol/L (98-107); Creatine Kinase 105 U/L (39-308); Estimated GFR 69.77 (mL/min/1.73m2); Glucose 117 mg/dL (74-106); Lipase 23 U/L (16-77); Magnesium 1.7 mg/dL (1.8-2.4); NT-proBNP 230 pg/mL (<300); Potassium 3.7 mmol/L (3.5-5.1); Sodium 141 mmol/L (136-145); TSH (W/Ref FT4) 1.51 uIU/mL (0.36-3.74); Troponin I < 50 ng/L (< or =60)
[2023-07-15 12:09] LABS: Troponin I < 50 ng/L (< or =60)
[2023-07-15] MEDS: Ketorolac 10 MG TAB PO (12:29)
[2023-07-15] MEDS: Acetaminophen 500 MG TAB 1000 MG PO (12:30)
== END 2023-07-15 13:01 | disposition home or self-care (01) ==
PROVIDERS: Emergency Provider Physician Assistant; PCP Family Medicine
DX: R07.9 Chest pain, unspecified (principal); R00.2 Palpitations; Z82.49 Family history of ischemic heart disease and other diseases of the circulatory system
CPT/HCPCS: 36415; 80053; 82550; 82805; 83690; 85652; 93005; 99284; 83605; 83735; 83880; 84443; 84484; 85025; 86140; 93010

== ENCOUNTER 2023-07-18 09:46 | Emergency (ER) | payer OTHER, SELFPAY ==
--- NOTE | 2023-07-18 09:45 | RT.EKG_ITS ---
APPROVED REPORT Exam: Resting ECG Reason for Exam: chest pressure Patient Location: E HR:103 bpm ECG Measurements Heart Rate 103 AXIS VA 177 P 56 QRSd 96 QRS 58 QT 350 T 35 QTc 460 Conclusion Sinus tachycardia...rate> 99 sinus tachycardia, normal axis, normal intervals, no hyptertrophy, non ischemic
[2023-07-18 09:50] VITALS: BP 124/68; PULSE 119; RESP 20; TEMP 37.2; O2SAT 99
[2023-07-18 09:59] VITALS: RESP 16
--- NOTE | 2023-07-18 10:07 | ED.GENADUL_ITS ---
HPI General Mode of arrival: ambulatory . Date/Time Provider Initiated Documentation: 07/18/23 09:47 . Limitations to Documentation: no limitations . Information obtained by: patient, RN notes reviewed and old records reviewed . HPI Narrative: 27-year-old male who is well-known to the department presents to the ER with chief complaint of dry mouth, tingling face chest pain shortness of breath and some left upper quadrant abdominal pain which he reports is similar symptoms to approximately 5 days ago when he was admitted for hypernatremia. Patient did have a reading of a sodium of 154 was admitted for further workup. His serum osmolality at that time was within normal limits. He reports that he has been drinking a lot of water and has been taking his medications as prescribed. He is afebrile upon arrival. Slightly tachycardic with a heart rate of 119. Past medical history includes parathyroidectomy, hypokalemia hypocalcemia anxiety depression hyperlipidemia PTSD. He states that he did call his primary care doctor however he was unable to get labs drawn until Friday so that is why he came to the ER. He reports that he has a PCP appointment on Friday morning at 8 AM. Related Data Home Medications Medication Instructions Recorded Confirmed magnesium gluconate 27 mg 27 mg PO BID #60 tabs 11/08/22 07/15/23 magnesium (500 mg) tablet calcium carbonate 200 mg calcium 2,000 mg PO BID 02/02/23 07/15/23 (500 mg) chewable tablet (Tums) calcitriol 0.5 mcg capsule 0.5 mcg PO BID #360 caps 04/21/23 07/15/23 diclofenac sodium 1 % topical gel 4 g topical QID #100 grams 04/21/23 07/15/23 methadone 10 mg/5 mL oral solution 105 mg PO QAM 06/12/23 07/15/23 omeprazole 40 mg capsule,delayed 40 mg PO DAILY 06/12/23 07/15/23 release polyethylene glycol 3350 17 17 g PO DAILY 06/12/23 07/15/23 gram/dose oral powder clonazepam 1 mg tablet 1 mg PO BID #56 tabs 06/23/23 07/15/23 gabapentin 300 mg capsule 300 mg PO BID #180 caps 06/23/23 07/15/23 white petrolatum-mineral oil 56.8 1 applic ophthalmic (eye) 4-6XD 06/27/23 07/15/23 %-42.5 % eye ointment (Refresh PRN #3.5 grams Lacri-Lube) cyclobenzaprine 10 mg tablet 10 mg PO TID PRN muscle spasm #30 07/04/23 07/15/23 tabs Previous Rx's Medication Instructions Recorded magnesium gluconate 27 mg 27 mg PO BID #60 tabs 11/08/22 magnesium (500 mg) tablet calcitriol 0.5 mcg capsule 0.5 mcg PO BID #360 caps 04/21/23 diclofenac sodium 1 % topical gel 4 g topical QID #100 grams 04/21/23 clonazepam 1 mg tablet 1 mg PO BID #56 tabs 06/23/23 gabapentin 300 mg capsule 300 mg PO BID #180 caps 06/23/23 white petrolatum-mineral oil 56.8 1 applic ophthalmic (eye) 4-6XD 06/27/23 %-42.5 % eye ointment (Refresh PRN #3.5 grams Lacri-Lube) cyclobenzaprine 10 mg tablet 10 mg PO TID PRN muscle spasm #30 07/04/23 tabs Allergies Allergy/AdvReac Type Severity Reaction Status Date / Time codeine Allergy Intermediate pass out Verified 07/18/23 09:51 Penicillins Allergy Skin Rash Verified 07/18/23 09:51 amoxicillin AdvReac Intermediate Nausea Verified 07/18/23 09:51 dextromethorphan AdvReac Intermediate Other (See Verified 07/18/23 09:51 [From NyQuil] Comment) doxylamine [From NyQuil] AdvReac Intermediate Other (See Verified 07/18/23 09:51 Comment) pseudoephedrine [From NyQuil] AdvReac Intermediate Other (See Verified 07/18/23 09:51 Comment) General Stated Complaint: GenMedical ADRIANA: 3 Review of Systems All systems reviewed & are unremarkable except as noted in HPI and below Musculoskeletal Musculoskeletal: Reports tingling Neurologic Neurologic: Reports tingling Exam Narrative Exam Narrative: Constitutional: Alert and oriented x3. Appears older than stated age. obesel body habitus. Head: Normocephalic, no trauma. Eyes: Pupils PERRL, Red reflex noted, EOM's intact. Eyelids symmetrical without lesions, discharge, or swelling. Chest: RRR, Normal S1, S2, distal pulses intact. Resp: Lungs clear to auscultation bilaterally, no wheezes, rales, or rhonchi. Abdomen: Soft, non-distended, Normoactive bowel sounds all 4 quads. Musculoskeletal: Normal gait, 5/5 strength to all four extremities. Skin: No suspicious rashes or lesions. Capillary refill less than 2 sec. Neurologic: Cranial nerves II-XII intact. Alert and oriented x 3. Motor: No deficits noted. Sensory: Intact bilaterally all 4 extremities. Reflexes: DTR's intact bilaterally.. Hematologic/Lymphatic: No ecchymosis, no lymphadenopathy. Course Vital Signs Vital signs: Vital Signs Temperature 37.2 C 07/18/23 09:50 Pulse 119 H 07/18/23 09:50 Respiratory Rate 20 07/18/23 09:50 Blood Pressure 124/68 07/18/23 09:50 Pulse Oximetry 99 07/18/23 09:50 Temperature 37.2 C 07/18/23 09:50 Temperature Source Skin 07/18/23 09:50 Pulse 119 H 07/18/23 09:50 Respiratory Rate 16 07/18/23 09:59 Respiratory Effort Normal 07/18/23 09:59 Respiratory Depth Normal 07/18/23 09:59 Respiratory Pattern Normal 07/18/23 09:59 Blood Pressure 124/68 07/18/23 09:50 Blood Pressure Position Sitting 07/18/23 09:50 Pulse Oximetry 99 07/18/23 09:50 Oxygen Delivery Method Room Air 07/18/23 09:50 Oxygen Flow Rate 0 07/18/23 09:50 Pain Level 3 07/18/23 09:50 Medical Decision Making 27-year-old male who is well-known to the department presents to the ER with chi ef complaint of dry mouth, tingling face chest pain shortness of breath and some left upper quadrant abdominal pain which he reports is similar symptoms to approximately 5 days ago when he was admitted for hypernatremia. Patient did have a reading of a sodium of 154 was admitted for further workup. His serum osmolality at that time was within normal limits. He reports that he has been drinking a lot of water and has been taking his medications as prescribed. He is afebrile upon arrival. Slightly tachycardic with a heart rate of 119. Past medical history includes parathyroidectomy, hypokalemia hypocalcemia anxiety depression hyperlipidemia PTSD. He states that he did call his primary care doctor however he was unable to get labs drawn until Friday so that is why he came to the ER. He reports that he has a PCP appointment on Friday morning at 8 AM. EKG was done by chief of staff upon patient's arrival to the department shows sinus tachycardia. cbc, CMP, Mag ordered. Labs are largely at baseline, sodium 140 potassium 3.8 glucose 115 magnesium slightly low at 1.6, will treat with 400 mg magnesium oxide,. Will plan to discharge with follow-up with PCP. Medical Records Medical records reviewed: Yes I reviewed the patient's medical records. Lab Data Lab results reviewed: Yes I reviewed the patient's lab results. Labs: Laboratory Tests Range/Units 07/18/23 10:12 WBC (4.4-10.8) 10^3/uL 6.65 RBC (4.36-5.78) 10^6/uL 3.72 L Hgb (13.5-17.5) g/dL 11.6 L Hct (40.0-50.0) % 33.4 L MCV (80-95) fL 90 MCH (27.0-33.0) pg 31.2 MCHC (32.0-36.0) % 34.7 RDW (11.8-14.1) % 12.8 Plt Count (130-400) 10^3/uL 259 MPV (8.0-11.0) fL 10.5 Immature Gran % 0.3 Neutrophils % 59.4 Lymphocytes % 24.5 Monocytes % 12.0 Eosinophils % 3.2 Basophils % 0.6 Nucleated RBC % (0.0-0.3) % 0.0 Absolute Neutrophils (1.2-6.7) 10^3/uL 3.95 Absolute Lymphocytes (1.2-3.4) 10^3/uL 1.63 Absolute Monocytes (0.1-0.8) 10^3/uL 0.80 Absolute Eosinophils (0.0-0.7) 10^3/uL 0.21 Absolute Basophils (0.0-0.2) 10^3/uL 0.04 Sodium (136-145) mmol/L 140 Potassium (3.5-5.1) mmol/L 3.8 Chloride (98-107) mmol/L 102 Carbon Dioxide (21.0-32.0) mmol/L 32.9 H Anion Gap (3-11) mmol/L 5.1 BUN (7-18) mg/dL 17 Creatinine (0.70-1.30) mg/dL 1.3 Est GFR (CKD-EPI 2020) (mL/min/1.73m2) 76.26 Glucose (74-106) mg/dL 115 H Calcium (8.5-10.1) mg/dL 8.6 Magnesium (1.8-2.4) mg/dL 1.6 L Total Bilirubin (0.2-1.0) mg/dL 0.2 AST (15-37) U/L 20 ALT (16-63) U/L 36 Alkaline Phosphatase (46-116) U/L 106 Total Protein (6.4-8.2) g/dL 7.1 Albumin (3.4-5.0) g/dL 2.8 L Quality:SDOH Health Related Social Needs: Health related social needs transpo insecurity PFSH All Active Problems (Updated 07/18/23 @ 10:47 by Antoinette Templeton NP) Encounter for laboratory test (Acute) Tingling (Acute) Chest pain of uncertain etiology (Acute) Hypernatremia (Acute) Cervical radiculopathy (Acute) URI (upper respiratory infection) (Acute) Left-sided Flower's palsy (Acute) Neck pain on left side (Acute) Constipation (Acute) Grief reaction (Chronic) Opiate dependence, continuous (Acute) Cellulitis (Acute) Cholelithiases (Acute) 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 Possible 2' Methadone, Clnzpm (?). Surg eval (+)/No further action. CKD (chronic kidney disease) stage 2, GFR 60-89 ml/min (Acute) GFR 64-65, with Hx FLORESITA and GFR < 45 Complex medical condition (Chronic) Serious electrolyte imbalances, with gynecomastia, possible MEN Dx, CKD and anemia with baseline anxiety and Hx PTSD. History of electrolyte imbalance (Acute) Neck pain on left side (Acute) with shoulder, upper back pain.. torticollis, radiating into left hip/leg Pulmonary nodule 1 cm or greater in diameter (Chronic) Therapeutic opioid induced constipation (Acute) Sphincter of Oddi dysfunction (Chronic) Abnormal CT scan, kidney (Acute) Intrahepatic bile duct dilation (Acute) Common bile duct dilatation (Acute) Abdominal pain (Acute) Iatrogenic hypocalcemia (Acute) Multiple endocrine neoplasia type I (Chronic) Chronic constipation (Chronic) Primary hyperparathyroidism (Chronic) Depression (Chronic) Hypomagnesemia (Chronic) Hypocalcemia (Chronic) Depression (Chronic) Suicidal ideation (Acute) Elevated parathyroid hormone (Acute) Family history of coronary arteriosclerosis (Chronic) Father of IL at 50, mother had IL at 42 Severe anxiety with panic (Chronic) Cellulitis (Acute) Medical History Hypocalcemia Anxiety Depression Hyperlipidemia Family history of multiple endocrine neoplasia, type 1 PTSD (post-traumatic stress disorder) Per pt. states no triggers at this time. Surgical History H/O parathyroidectomy Family History Mother Anxiety Asthma Depression Sister Anxiety Depression Father Cancer lung & stomach Depression Diabetes Hypertension MEN 1 (multiple endocrine neoplasia) Social History Smoking/Tobacco Use Status: Never Smoking risk assessment performed?: Yes Alcohol Intake: never Drug use: Rarely Substance use type: does not use and former substance user Adopted: No Caregiver/Support person: No Foster care: No Household members: none Housing: apartment Number of Children: 0 Communication Needs: None Education Level: high school Do you need help understanding health information?: Never 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 and animals: Yes (Ally) Pets and animals: dog(s) Sexually active: No Do you think of yourself as: straight/heterosexual Current gender identity: male What is your relationship status?: How often do you talk on the phone with friends or family?: twice per week How often do you get together with friends or relatives?: never Do you belong to any clubs or organized social groups?: no Panel score (0-1 are the most socially isolated patients): 0 What type of physical activity do you participate in: walking Duration: 15-30 minutes/day Frequency: 5-6 times per week Maryam/Presybeterian: Gnosticism Special maryam needs: No Seatbelt use: always Helmet use: Yes Helmet use: always Drive 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 Discharge Plan Disposition Patient Disposition: Home Condition: Stable Discharge Details Clinical Impression: Tingling, Encounter for laboratory test Primary Care Provider: Brendon Vivar ED Provider: Antoinette Templeton Home Meds and New Rx's Prescriptions: Continued clonazepam 1 mg tablet 1 mg PO BID Qty: 56 0RF gabapentin 300 mg capsule 300 mg PO BID Qty: 180 3RF methadone 10 mg/5 mL solution 105 mg PO QAM magnesium gluconate 27 mg magnesium (500 mg) tablet 27 mg PO BID Qty: 60 3RF calcitriol 0.5 mcg capsule 0.5 mcg PO BID Qty: 360 3RF Hold Instructions: Resume on 06/15/22. diclofenac sodium 1 % gel 4 g topical QID Qty: 100 6RF Rx Instructions: apply to single knee, ankle, foot; for foot includes sole/toes/top of foot omeprazole 40 mg capsule,delayed release(DR/EC) 40 mg PO DAILY polyethylene glycol 3350 17 gram/dose powder 17 g PO DAILY cyclobenzaprine 10 mg tablet 10 mg PO TID PRN (Reason: muscle spasm) Qty: 30 3RF calcium carbonate [Tums] 200 mg calcium (500 mg) tablet,chewable 2,000 mg PO BID Hold Instructions: Resume on 05/12/23. Please hold your nightly dose tonight and your a.m. dose tomorrow morning. Refresh Lacri-Lube 56.8-42.5 % ointment 1 applic ophthalmic (eye) 4-6XD PRNQty: 3.5 0RF Discharge Instructions Instructions: Normal Exam (ED) Additional Instructions: At this time your labs are largely within normal limits. Your magnesium is slightly low at 1.6. Your sodium and potassium are within normal limits. Follow up with primary care provider as previously scheduled. Increase oral fluids. Referrals: Brendon Vivar DO [Primary Care Provider] - 3 days
[2023-07-18 10:23] LABS: Abs Immature Grans 0.02 10^3/uL (0.0-0.06); Absolute Basophil Count 0.04 10^3/uL (0.0-0.2); Absolute Eosinophil Count 0.21 10^3/uL (0.0-0.7); Absolute Lymphocyte Count 1.63 10^3/uL (1.2-3.4); Absolute Neutrophil Count 3.95 10^3/uL (1.2-6.7); Basophils % 0.6; Eosinophils % 3.2; HCT 33.4 % (40.0-50.0); HGB 11.6 g/dL (13.5-17.5); Immature Grans % 0.3; Lymphocytes % 24.5; MCH 31.2 pg (27.0-33.0); MCHC 34.7 % (32.0-36.0); MCV 90 fL (80-95); MPV 10.5 fL (8.0-11.0); Neutrophils % 59.4; Platelet Count 259 10^3/uL (130-400); RBC 3.72 10^6/uL (4.36-5.78); RDW 12.8 % (11.8-14.1); RDW-SD 41.5 fL; WBC 6.65 10^3/uL (4.4-10.8)
[2023-07-18 10:38] LABS: ALT 36 U/L (16-63); AST 20 U/L (15-37); Albumin 2.8 g/dL (3.4-5.0); Alkaline Phosphatase 106 U/L (46-116); Anion Gap 5.1 mmol/L (3-11); BUN 17 mg/dL (7-18); Bilirubin, Total 0.2 mg/dL (0.2-1.0); CO2 32.9 mmol/L (21.0-32.0); CREATININE 1.3 mg/dL (0.70-1.30); Calcium 8.6 mg/dL (8.5-10.1); Chloride 102 mmol/L (98-107); Estimated GFR 76.26 (mL/min/1.73m2); Glucose 115 mg/dL (74-106); Magnesium 1.6 mg/dL (1.8-2.4); Potassium 3.8 mmol/L (3.5-5.1); Sodium 140 mmol/L (136-145); Total Protein 7.1 g/dL (6.4-8.2)
[2023-07-18] MEDS: Magnesium Oxide 400 MG TAB PO (10:46)
== END 2023-07-18 10:59 | disposition home or self-care (01) ==
PROVIDERS: Emergency Provider Registered Nurse Emergency; PCP Family Medicine
DX: R20.2 Paresthesia of skin (principal); R06.02 Shortness of breath; R07.9 Chest pain, unspecified
CPT/HCPCS: 36415; 80053; 93005; 99283; 83735; 85025; 93010

== ENCOUNTER 2023-07-29 12:25 | Emergency (ER) | payer MEDICAID, SELFPAY ==
--- NOTE | 2023-07-29 12:15 | RT.EKG_ITS ---
APPROVED REPORT Exam: Resting ECG Reason for Exam: fast heart rate Patient Location: E HR:100 bpm ECG Measurements Heart Rate 100 AXIS FL 167 P 39 QRSd 94 QRS 35 QT 360 T 29 QTc 466 Conclusion Sinus tachycardia...rate> 99 sinus tachycardia, normal axis, normal intervals, non ischemic
[2023-07-29 12:27] VITALS: BP 132/85; PULSE 102; RESP 18; TEMP 36.1; O2SAT 94
[2023-07-29 12:51] VITALS: BP 132/85; PULSE 102; RESP 18; TEMP 36.1; O2SAT 94
[2023-07-29 13:38] LABS: Abs Immature Grans 0.03 10^3/uL (0.0-0.06); Absolute Basophil Count 0.04 10^3/uL (0.0-0.2); Absolute Eosinophil Count 0.18 10^3/uL (0.0-0.7); Absolute Lymphocyte Count 1.92 10^3/uL (1.2-3.4); Absolute Monocyte Count 0.82 10^3/uL (0.1-0.8); Basophils % 0.5; Eosinophils % 2.3; HCT 29.3 % (40.0-50.0); HGB 9.9 g/dL (13.5-17.5); Immature Grans % 0.4; Lymphocytes % 24.3; MCH 30.8 pg (27.0-33.0); MCHC 33.8 % (32.0-36.0); MCV 91 fL (80-95); Monocytes % 10.4; Neutrophils % 62.1; Platelet Count 355 10^3/uL (130-400); RBC 3.21 10^6/uL (4.36-5.78); RDW 12.6 % (11.8-14.1); RDW-SD 41.9 fL; WBC 7.89 10^3/uL (4.4-10.8)
[2023-07-29 14:11] LABS: ALT 41 U/L (16-63); AST 44 U/L (15-37); Albumin 2.8 g/dL (3.4-5.0); Alkaline Phosphatase 103 U/L (46-116); Anion Gap 7.4 mmol/L (3-11); BUN 16 mg/dL (7-18); Bilirubin, Total 0.2 mg/dL (0.2-1.0); CO2 28.6 mmol/L (21.0-32.0); CREATININE 1.2 mg/dL (0.70-1.30); Calcium 8.3 mg/dL (8.5-10.1); Chloride 104 mmol/L (98-107); Estimated GFR 83.95 (mL/min/1.73m2); Glucose 107 mg/dL (74-106); Magnesium 1.8 mg/dL (1.8-2.4); Potassium 4.4 mmol/L (3.5-5.1); Sodium 140 mmol/L (136-145); TSH (W/Ref FT4) 1.12 uIU/mL (0.36-3.74); Total Protein 7.1 g/dL (6.4-8.2)
[2023-07-29 14:58] VITALS: BP 121/82; PULSE 87; RESP 16; O2SAT 96
[2023-07-29 15:04] LABS: Ferritin 101 ng/mL (26-388)
[2023-07-29 15:26] LABS: Iron 38 ug/dL (65-175); Total Iron Binding Capacity 263 ug/dL (250-450); Transferrin Sat 14 % (20-55)
--- NOTE | 2023-07-30 08:52 | W.ED.GENAD ---
HPI General Date/Time Provider Initiated Documentation: 07/29/23 12:43. HPI Narrative: This 27-year-old male presents with reports of paresthesias and palpitations. Denies any chest pain or shortness of breath. Has felt unwell since this morning per patient. Did decrease his calcium to 1 capsule daily per patient. Denies any calf pain or swelling, nausea, vomiting, headache or any additional complaints at this time. Related Data Home Medications Medication Instructions Recorded Confirmed magnesium gluconate 27 mg 27 mg PO BID #60 tabs 11/08/22 07/29/23 magnesium (500 mg) tablet calcium carbonate 200 mg calcium 2,000 mg PO BID 02/02/23 07/29/23 (500 mg) chewable tablet (Tums) calcitriol 0.5 mcg capsule 0.5 mcg PO BID #360 caps 04/21/23 07/29/23 diclofenac sodium 1 % topical gel 4 g topical QID #100 grams 04/21/23 07/29/23 methadone 10 mg/5 mL oral solution 105 mg PO QAM 06/12/23 07/29/23 polyethylene glycol 3350 17 17 g PO DAILY 06/12/23 07/29/23 gram/dose oral powder gabapentin 300 mg capsule 300 mg PO BID #180 caps 06/23/23 07/29/23 cyclobenzaprine 10 mg tablet 10 mg PO TID PRN muscle spasm #30 07/04/23 07/29/23 tabs clonazepam 1 mg tablet 1 mg PO BID #56 tabs 07/21/23 07/29/23 omeprazole 40 mg capsule,delayed 40 mg PO DAILY #90 caps 07/21/23 07/29/23 release Previous Rx's Medication Instructions Recorded magnesium gluconate 27 mg 27 mg PO BID #60 tabs 11/08/22 magnesium (500 mg) tablet calcitriol 0.5 mcg capsule 0.5 mcg PO BID #360 caps 04/21/23 diclofenac sodium 1 % topical gel 4 g topical QID #100 grams 04/21/23 gabapentin 300 mg capsule 300 mg PO BID #180 caps 06/23/23 cyclobenzaprine 10 mg tablet 10 mg PO TID PRN muscle spasm #30 07/04/23 tabs clonazepam 1 mg tablet 1 mg PO BID #56 tabs 07/21/23 omeprazole 40 mg capsule,delayed 40 mg PO DAILY #90 caps 07/21/23 release Allergies Allergy/AdvReac Type Severity Reaction Status Date / Time codeine Allergy Intermediate pass out Verified 07/29/23 12:30 Penicillins Allergy Skin Rash Verified 07/29/23 12:30 amoxicillin AdvReac Intermediate Nausea Verified 07/29/23 12:30 dextromethorphan AdvReac Intermediate Other (See Verified 07/29/23 12:30 [From NyQuil] Comment) doxylamine [From NyQuil] AdvReac Intermediate Other (See Verified 07/29/23 12:30 Comment) pseudoephedrine [From NyQuil] AdvReac Intermediate Other (See Verified 07/29/23 12:30 Comment) General Stated Complaint: GenMedical ADRIANA: 3 Course Vital Signs Vital signs: Vital Signs Temperature 36.1 C L 07/29/23 12:27 Pulse 102 H 07/29/23 12:27 Respiratory Rate 18 07/29/23 12:27 Blood Pressure 132/85 07/29/23 12:27 Pulse Oximetry 94 07/29/23 12:27 Temperature 36.1 C L 07/29/23 12:51 Temperature Source Skin 07/29/23 12:51 Pulse 87 07/29/23 14:58 Respiratory Rate 16 07/29/23 14:58 Respiratory Effort Short of Breath 07/29/23 12:52 Respiratory Depth Normal 07/29/23 12:52 Respiratory Pattern Normal 07/29/23 12:52 Blood Pressure 121/82 07/29/23 14:58 Blood Pressure Position Sitting 07/29/23 12:51 Pulse Oximetry 96 07/29/23 14:58 Oxygen Delivery Method Room Air 07/29/23 14:58 Oxygen Flow Rate 0 07/29/23 14:58 Lab/Test Results Lab/Test Results: Laboratory Tests Range/Units 07/29/23 07/29/23 13:30 14:53 WBC (4.4-10.8) 10^3/uL 7.89 RBC (4.36-5.78) 10^6/uL 3.21 L Hgb (13.5-17.5) g/dL 9.9 L Hct (40.0-50.0) % 29.3 L MCV (80-95) fL 91 MCH (27.0-33.0) pg 30.8 MCHC (32.0-36.0) % 33.8 RDW (11.8-14.1) % 12.6 Plt Count (130-400) 10^3/uL 355 MPV (8.0-11.0) fL 10.0 Reticulocyte % (Auto) (0.5-2.4) % 2.0 Immature Gran % 0.4 Neutrophils % 62.1 Lymphocytes % 24.3 Monocytes % 10.4 Eosinophils % 2.3 Basophils % 0.5 Nucleated RBC % (0.0-0.3) % 0.0 Absolute Neutrophils (1.2-6.7) 10^3/uL 4.90 Absolute Lymphocytes (1.2-3.4) 10^3/uL 1.92 Absolute Monocytes (0.1-0.8) 10^3/uL 0.82 H Absolute Eosinophils (0.0-0.7) 10^3/uL 0.18 Absolute Basophils (0.0-0.2) 10^3/uL 0.04 Sodium (136-145) mmol/L 140 Potassium (3.5-5.1) mmol/L 4.4 Chloride (98-107) mmol/L 104 Carbon Dioxide (21.0-32.0) mmol/L 28.6 Anion Gap (3-11) mmol/L 7.4 BUN (7-18) mg/dL 16 Creatinine (0.70-1.30) mg/dL 1.2 Est GFR (CKD-EPI 2020) (mL/min/1.73m2) 83.95 Glucose (74-106) mg/dL 107 H Calcium (8.5-10.1) mg/dL 8.3 L Magnesium (1.8-2.4) mg/dL 1.8 Iron (65-175) ug/dL 38 L TIBC (250-450) ug/dL 263 Transferrin % Sat (20-55) % 14 L Ferritin (26-388) ng/mL 101 Total Bilirubin (0.2-1.0) mg/dL 0.2 AST (15-37) U/L 44 H ALT (16-63) U/L 41 Alkaline Phosphatase (46-116) U/L 103 Total Protein (6.4-8.2) g/dL 7.1 Albumin (3.4-5.0) g/dL 2.8 L TSH (0.36-3.74) uIU/mL 1.12 Medical Decision Making 27-year-old male known to this facility presenting with paresthesias, history of parathyroidectomy, will check electrolytes and labs, EKG without evidence of dysrhythmia per my attendings interpretation my review Patient appears well, his electrolytes are stable, his calcium is just slightly low at 8.3, he will increase to 2 capsules of his calcium daily I see no other clear evidence for patient's symptoms, he is anemic, he is anemic, hemoglobin dropped from 11.9-9.9, I did perform a rectal exam and guaiac was negative He has a nontender abdominal exam He has an appointment with his doctor upcoming in the next several weeks so he will have this rechecked and return should he have new or worsening complaints Patient is alert, oriented, no acute distress, pupils equal round reactive to light and accommodation, lungs clear to auscultation, cardiac rate rhythm regular Quality:SDOH Health Related Social Needs: Health related social needs transpo insecurity PFSH All Active Problems (Updated 07/29/23 @ 14:40 by ANDREW Arriaga) Anemia (Chronic) Encounter for laboratory test (Acute) Tingling (Acute) Chest pain of uncertain etiology (Acute) Hypernatremia (Acute) Cervical radiculopathy (Acute) URI (upper respiratory infection) (Acute) Left-sided Flower's palsy (Acute) Neck pain on left side (Acute) Constipation (Acute) Grief reaction (Chronic) Opiate dependence, continuous (Acute) Cellulitis (Acute) Cholelithiases (Acute) 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 Possible 2' Methadone, Clnzpm (?). Surg eval (+)/No further action. CKD (chronic kidney disease) stage 2, GFR 60-89 ml/min (Acute) GFR 64-65, with Hx FLORESITA and GFR < 45 Complex medical condition (Chronic) Serious electrolyte imbalances, with gynecomastia, possible MEN Dx, CKD and anemia with baseline anxiety and Hx PTSD. History of electrolyte imbalance (Acute) Neck pain on left side (Acute) with shoulder, upper back pain.. torticollis, radiating into left hip/leg Pulmonary nodule 1 cm or greater in diameter (Chronic) Therapeutic opioid induced constipation (Acute) Sphincter of Oddi dysfunction (Chronic) Abnormal CT scan, kidney (Acute) Intrahepatic bile duct dilation (Acute) Common bile duct dilatation (Acute) Abdominal pain (Acute) Iatrogenic hypocalcemia (Acute) Multiple endocrine neoplasia type I (Chronic) Chronic constipation (Chronic) Primary hyperparathyroidism (Chronic) Depression (Chronic) Hypomagnesemia (Chronic) Hypocalcemia (Chronic) Depression (Chronic) Suicidal ideation (Acute) Elevated parathyroid hormone (Acute) Family history of coronary arteriosclerosis (Chronic) Father of [place] at 50, mother had [place] at 42 Severe anxiety with panic (Chronic) Cellulitis (Acute) Medical History Hypocalcemia Anxiety Depression Hyperlipidemia Family history of multiple endocrine neoplasia, type 1 PTSD (post-traumatic stress disorder) Per pt. states no triggers at this time. Surgical History H/O parathyroidectomy Family History Mother Anxiety Asthma Depression Sister Anxiety Depression Father Cancer lung & stomach Depression Diabetes Hypertension MEN 1 (multiple endocrine neoplasia) Social History Smoking/Tobacco Use Status: Never Smoking risk assessment performed?: Yes Alcohol Intake: never Drug use: Rarely Substance use type: does not use and former substance user Adopted: No Caregiver/Support person: No Foster care: No Household members: none Housing: apartment Number of Children: 0 Communication Needs: None Education Level: high school Do you need help understanding health information?: Never 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 and animals: Yes (Ally) Pets and animals: dog(s) Sexually active: No Do you think of yourself as: straight/heterosexual Current gender identity: male What is your relationship status?: How often do you talk on the phone with friends or family?: twice per week How often do you get together with friends or relatives?: never Do you belong to any clubs or organized social groups?: no Panel score (0-1 are the most socially isolated patients): 0 What type of physical activity do you participate in: walking Duration: 15-30 minutes/day Frequency: 5-6 times per week Maryam/Islam: Amish Special maryam needs: No Seatbelt use: always Helmet use: Yes Helmet use: always Drive 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 dumpster 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 Discharge Plan Disposition Patient Disposition: Home Discharge Details Clinical Impression: Anemia, Hypocalcemia Primary Care Provider: Brendon Vivar ED Provider: Luh Tsai Home Meds and New Rx's Prescriptions: No Action gabapentin 300 mg capsule 300 mg PO BID Qty: 180 3RF methadone 10 mg/5 mL solution 105 mg PO QAM magnesium gluconate 27 mg magnesium (500 mg) tablet 27 mg PO BID Qty: 60 3RF calcitriol 0.5 mcg capsule 0.5 mcg PO BID Qty: 360 3RF Hold Instructions: Resume on 06/15/22. diclofenac sodium 1 % gel 4 g topical QID Qty: 100 6RF Rx Instructions: apply to single knee, ankle, foot; for foot includes sole/toes/top of foot polyethylene glycol 3350 17 gram/dose powder 17 g PO DAILY clonazepam 1 mg tablet 1 mg PO BID Qty: 56 0RF omeprazole 40 mg capsule,delayed release(DR/EC) 40 mg PO DAILY Qty: 90 3RF cyclobenzaprine 10 mg tablet 10 mg PO TID PRN (Reason: muscle spasm) Qty: 30 3RF calcium carbonate [Tums] 200 mg calcium (500 mg) tablet,chewable 2,000 mg PO BID Hold Instructions: Resume on 05/12/23. Please hold your nightly dose tonight and your a.m. dose tomorrow morning. Discharge Instructions Instructions: Anemia (ED) Additional Instructions: Please follow-up with your doctor at your scheduled appointment this month You should have a CBC rechecked as you are anemic, I have added on some additional labs for evaluation Increase your calcium to 2 capsules daily Please return earlier should you have new or worsening complaints Referrals: Brendon Vivar DO [Primary Care Provider] - Discharge Data Discharge Date/Time-TO BE ENTERED AT DEPARTURE: 07/29/23 15:01
== END 2023-07-29 15:01 | disposition home or self-care (01) ==
PROVIDERS: Emergency Provider Physician Assistant; PCP Family Medicine
DX: D64.9 Anemia, unspecified (principal); E83.51 Hypocalcemia; R00.0 Tachycardia, unspecified; E89.2 Postprocedural hypoparathyroidism; Z11.52 Encounter for screening for COVID-19
CPT/HCPCS: 80053; 87426; 93005; 99284; 82728; 83540; 83550; 83735; 84443; 85025; 85045; 93010

== ENCOUNTER 2023-07-31 15:45 | Emergency (ER) | payer MEDICAID, SELFPAY ==
[2023-07-31 15:52] VITALS: BP 144/95; PULSE 98; RESP 18; TEMP 36.5; O2SAT 98
[2023-07-31 16:32] LABS: HCT 36.4 % (40.0-50.0); HGB 12.2 g/dL (13.5-17.5); MCH 30.4 pg (27.0-33.0); MCHC 33.5 % (32.0-36.0); MCV 91 fL (80-95); MPV 9.8 fL (8.0-11.0); Platelet Count 360 10^3/uL (130-400); RBC 4.01 10^6/uL (4.36-5.78); RDW 12.3 % (11.8-14.1); RDW-SD 40.9 fL; WBC 8.27 10^3/uL (4.4-10.8)
--- NOTE | 2023-07-31 16:57 | ED.GENADUL_ITS ---
HPI General Mode of arrival: ambulatory . Date/Time Provider Initiated Documentation: 07/31/23 16:00 . Limitations to Documentation: no limitations . Information obtained by: patient . HPI Narrative: 27-year-old male, well-known to the emergency department with multiple medical problems, presents with chief complaint of abdominal discomfort. Patient notes that he developed abdominal discomfort this afternoon after eating a large quantity of spinach. He states his primary care physician told him to eat more spinach because his hemoglobin was low. He consumed a package of spinach today. He is feeling bloated. He has no nausea or vomiting. He had a normal bowel movement earlier today. He is passing gas. He has no fever. Patient was seen here yesterday for paresthesias and palpitations and had relatively reassuring labs other than his hemoglobin had decreased. Related Data Home Medications Medication Instructions Recorded Confirmed magnesium gluconate 27 mg 27 mg PO BID #60 tabs 11/08/22 07/31/23 magnesium (500 mg) tablet calcium carbonate 200 mg calcium 2,000 mg PO BID 02/02/23 07/31/23 (500 mg) chewable tablet (Tums) calcitriol 0.5 mcg capsule 0.5 mcg PO BID #360 caps 04/21/23 07/31/23 diclofenac sodium 1 % topical gel 4 g topical QID #100 grams 04/21/23 07/31/23 methadone 10 mg/5 mL oral solution 105 mg PO QAM 06/12/23 07/31/23 polyethylene glycol 3350 17 17 g PO DAILY 06/12/23 07/31/23 gram/dose oral powder gabapentin 300 mg capsule 300 mg PO BID #180 caps 06/23/23 07/31/23 cyclobenzaprine 10 mg tablet 10 mg PO TID PRN muscle spasm #30 07/04/23 07/31/23 tabs clonazepam 1 mg tablet 1 mg PO BID #56 tabs 07/21/23 07/31/23 omeprazole 40 mg capsule,delayed 40 mg PO DAILY #90 caps 07/21/23 07/31/23 release Previous Rx's Medication Instructions Recorded magnesium gluconate 27 mg 27 mg PO BID #60 tabs 11/08/22 magnesium (500 mg) tablet calcitriol 0.5 mcg capsule 0.5 mcg PO BID #360 caps 04/21/23 diclofenac sodium 1 % topical gel 4 g topical QID #100 grams 04/21/23 gabapentin 300 mg capsule 300 mg PO BID #180 caps 06/23/23 cyclobenzaprine 10 mg tablet 10 mg PO TID PRN muscle spasm #30 07/04/23 tabs clonazepam 1 mg tablet 1 mg PO BID #56 tabs 07/21/23 omeprazole 40 mg capsule,delayed 40 mg PO DAILY #90 caps 07/21/23 release Allergies Allergy/AdvReac Type Severity Reaction Status Date / Time codeine Allergy Intermediate pass out Verified 07/29/23 12:30 Penicillins Allergy Skin Rash Verified 07/29/23 12:30 amoxicillin AdvReac Intermediate Nausea Verified 07/29/23 12:30 dextromethorphan AdvReac Intermediate Other (See Verified 07/29/23 12:30 [From NyQuil] Comment) doxylamine [From NyQuil] AdvReac Intermediate Other (See Verified 07/29/23 12:30 Comment) pseudoephedrine [From NyQuil] AdvReac Intermediate Other (See Verified 07/29/23 12:30 Comment) General Stated Complaint: Abd Prob ADRIANA: 3 Review of Systems All systems reviewed & are unremarkable except as noted in HPI and below Constitutional Constitutional: Denies fever(s) Cardiovascular Cardiovascular: Denies chest pain Gastrointestinal Gastrointestinal: Reports as per HPI Exam Const General: cooperative and no acute distress HENMT Mouth: moist mucous membranes Eyes Conjunctivae: normal conjunctivae Sclera: normal sclerae Resp Auscultation: clear to auscultation bilaterally, no rales, no rhonchi and no wheezes Cardio Rate: regular rate and not tachycardic Rhythm: regular rhythm GI Palpation: soft, not firm, no guarding, no masses, not rigid and nontender Auscultation: normal bowel sounds Neuro General: patient alert, patient awake, patient oriented x3 and tone normal Course Vital Signs Vital signs: Vital Signs Temperature 36.5 C 07/31/23 15:52 Pulse 98 H 07/31/23 15:52 Respiratory Rate 18 07/31/23 15:52 Blood Pressure 144/95 H 07/31/23 15:52 Pulse Oximetry 98 07/31/23 15:52 Temperature 36.5 C 07/31/23 15:52 Temperature Source Temporal Artery Scan 07/31/23 15:52 Pulse 98 H 07/31/23 15:52 Respiratory Rate 18 07/31/23 15:52 Respiratory Effort Normal, Non-Labored 07/31/23 16:29 Blood Pressure 144/95 H 07/31/23 15:52 Pulse Oximetry 98 07/31/23 15:52 Lab/Test Results Lab/Test Results: Laboratory Tests Range/Units 07/31/23 16:15 WBC (4.4-10.8) 10^3/uL 8.27 RBC (4.36-5.78) 10^6/uL 4.01 L Hgb (13.5-17.5) g/dL 12.2 L D Hct (40.0-50.0) % 36.4 L MCV (80-95) fL 91 MCH (27.0-33.0) pg 30.4 MCHC (32.0-36.0) % 33.5 RDW (11.8-14.1) % 12.3 Plt Count (130-400) 10^3/uL 360 MPV (8.0-11.0) fL 9.8 Medical Decision Making 27-year-old male, well-known to the emergency department with multiple medical problems, seen here yesterday for paresthesias and palpitations and had a nondiagnostic workup other than anemia, here today with abdominal discomfort after eating a large quantity of spinach. Abdominal exam is benign. Repeat CBC reveals normal hemoglobin. Results discussed with the patient. Plan for clear liquid diet tonight and bowel rest. He was advised to not consume large quantities manage in the future. Usual and customary discharge instructions were reviewed. Quality:SDOH Health Related Social Needs: Health related social needs transpo insecurity PFSH All Active Problems (Updated 07/31/23 @ 17:03 by Lester Bundy MD) Abdominal pain (Acute) Anemia (Chronic) Encounter for laboratory test (Acute) Tingling (Acute) Chest pain of uncertain etiology (Acute) Hypernatremia (Acute) Cervical radiculopathy (Acute) URI (upper respiratory infection) (Acute) Left-sided Flower's palsy (Acute) Neck pain on left side (Acute) Constipation (Acute) Grief reaction (Chronic) Opiate dependence, continuous (Acute) Cellulitis (Acute) Cholelithiases (Acute) 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 ED Left arm numbness (Acute) Gynecomastia, male (Acute) b/l, per CT (Jul 2022).. Possible 2' Methadone, Clnzpm (?). Surg eval (+)/No further action. CKD (chronic kidney disease) stage 2, GFR 60-89 ml/min (Acute) GFR 64-65, with Hx FLORESITA and GFR < 45 Complex medical condition (Chronic) Serious electrolyte imbalances, with gynecomastia, possible MEN Dx, CKD and anemia with baseline anxiety and Hx PTSD. History of electrolyte imbalance (Acute) Neck pain on left side (Acute) with shoulder, upper back pain.. torticollis, radiating into left hip/leg Pulmonary nodule 1 cm or greater in diameter (Chronic) Therapeutic opioid induced constipation (Acute) Sphincter of Oddi dysfunction (Chronic) Abnormal CT scan, kidney (Acute) Intrahepatic bile duct dilation (Acute) Common bile duct dilatation (Acute) Abdominal pain (Acute) Iatrogenic hypocalcemia (Acute) Multiple endocrine neoplasia type I (Chronic) Chronic constipation (Chronic) Primary hyperparathyroidism (Chronic) Depression (Chronic) Hypomagnesemia (Chronic) Hypocalcemia (Chronic) Depression (Chronic) Suicidal ideation (Acute) Elevated parathyroid hormone (Acute) Family history of coronary arteriosclerosis (Chronic) Father of [place] at 50, mother had [place] at 42 Severe anxiety with panic (Chronic) Cellulitis (Acute) Medical History Hypocalcemia Anxiety Depression Hyperlipidemia Family history of multiple endocrine neoplasia, type 1 PTSD (post-traumatic stress disorder) Per pt. states no triggers at this time. Surgical History H/O parathyroidectomy Family History Mother Anxiety Asthma Depression Sister Anxiety Depression Father Cancer lung & stomach Depression Diabetes Hypertension MEN 1 (multiple endocrine neoplasia) Social History Smoking/Tobacco Use Status: Never Smoking risk assessment performed?: Yes Alcohol Intake: never Drug use: Rarely Substance use type: does not use and former substance user Adopted: No Caregiver/Support person: No Foster care: No Household members: none Housing: apartment Number of Children: 0 Communication Needs: None Education Level: high school Do you need help understanding health information?: Never 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 and animals: Yes (Ally) Pets and animals: dog(s) Sexually active: No Do you think of yourself as: straight/heterosexual Current gender identity: male What is your relationship status?: How often do you talk on the phone with friends or family?: twice per week How often do you get together with friends or relatives?: never Do you belong to any clubs or organized social groups?: no Panel score (0-1 are the most socially isolated patients): 0 What type of physical activity do you participate in: walking Duration: 15-30 minutes/day Frequency: 5-6 times per week Maryam/Yazidi: Muslim Special maryam needs: No Seatbelt use: always Helmet use: Yes Helmet use: always Drive 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 route cdl 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 Discharge Plan Disposition Patient Disposition: Home Condition: Stable Discharge Details Clinical Impression: Abdominal pain Primary Care Provider: Brendon Vivar ED Provider: Lester Bundy [place] Meds and New Rx's Prescriptions: Continued gabapentin 300 mg capsule 300 mg PO BID Qty: 180 3RF methadone 10 mg/5 mL solution 105 mg PO QAM magnesium gluconate 27 mg magnesium (500 mg) tablet 27 mg PO BID Qty: 60 3RF calcitriol 0.5 mcg capsule 0.5 mcg PO BID Qty: 360 3RF Hold Instructions: Resume on 06/15/22. diclofenac sodium 1 % gel 4 g topical QID Qty: 100 6RF Rx Instructions: apply to single knee, ankle, foot; for foot includes sole/toes/top of foot polyethylene glycol 3350 17 gram/dose powder 17 g PO DAILY clonazepam 1 mg tablet 1 mg PO BID Qty: 56 0RF omeprazole 40 mg capsule,delayed release(DR/EC) 40 mg PO DAILY Qty: 90 3RF cyclobenzaprine 10 mg tablet 10 mg PO TID PRN (Reason: muscle spasm) Qty: 30 3RF calcium carbonate [Tums] 200 mg calcium (500 mg) tablet,chewable 2,000 mg PO BID Hold Instructions: Resume on 05/12/23. Please hold your nightly dose tonight and your a.m. dose tomorrow morning. Discharge Instructions Instructions: Abdominal Pain (ED) Additional Instructions: Please stop eating large quantities of spinach in the future. Maintain a clear liquid diet tonight. You may advance your diet to soft bland foods tomorrow if feeling better. Continue to advance slowly. Please contact your primary care physician to arrange follow-up. Return to the ER immediately for any worsening or new concerning symptoms. Referrals: Brendon Vivar DO [Primary Care Provider] -
== END 2023-07-31 17:11 | disposition home or self-care (01) ==
PROVIDERS: Emergency Provider Student in an Organized Health Care Education/Training Program; PCP Family Medicine
DX: R10.9 Unspecified abdominal pain (principal); E78.5 Hyperlipidemia, unspecified; N18.2 Chronic kidney disease, stage 2 (mild)
CPT/HCPCS: 85027; 99283; 99284

== ENCOUNTER 2023-08-02 13:58 | Emergency (ER) | payer OTHER, SELFPAY ==
[2023-08-02 14:00] VITALS: BP 118/86; PULSE 112; RESP 18; TEMP 36.9; O2SAT 98
[2023-08-02 14:09] VITALS: BP 118/86; PULSE 112; RESP 18; TEMP 36.9; O2SAT 98
--- NOTE | 2023-08-02 14:33 | W.ED.GENAD ---
HPI General Date/Time Provider Initiated Documentation: 08/02/23 14:08. Limitations to Documentation: no limitations. Information obtained by: patient. HPI Narrative: 27-year-old gentleman with past medical history of PTSD, anxiety, depression, M EN 1, status post parathyroidectomy presents for evaluation of lower abdominal pain. Reports that the pain has been present for over a week. It is localized to the lower abdomen. It feels like a pulling or stretching. He states that the pain is made worse when he has to go to urinate. He does not have any blood in his urine, denies any painful urination or difficulty urinating. And has no nausea or vomiting. Reports normal bowel movements. He has not had any fever. He has not tried any medications for relief. Related Data Home Medications Medication Instructions Recorded Confirmed magnesium gluconate 27 mg 27 mg PO BID #60 tabs 11/08/22 08/02/23 magnesium (500 mg) tablet calcium carbonate 200 mg calcium 2,000 mg PO BID 02/02/23 08/02/23 (500 mg) chewable tablet (Tums) calcitriol 0.5 mcg capsule 0.5 mcg PO BID #360 caps 04/21/23 08/02/23 diclofenac sodium 1 % topical gel 4 g topical QID #100 grams 04/21/23 08/02/23 methadone 10 mg/5 mL oral solution 105 mg PO QAM 06/12/23 08/02/23 polyethylene glycol 3350 17 17 g PO DAILY 06/12/23 08/02/23 gram/dose oral powder gabapentin 300 mg capsule 300 mg PO BID #180 caps 06/23/23 08/02/23 cyclobenzaprine 10 mg tablet 10 mg PO TID PRN muscle spasm #30 07/04/23 08/02/23 tabs clonazepam 1 mg tablet 1 mg PO BID #56 tabs 07/21/23 08/02/23 omeprazole 40 mg capsule,delayed 40 mg PO DAILY #90 caps 07/21/23 08/02/23 release Previous Rx's Medication Instructions Recorded magnesium gluconate 27 mg 27 mg PO BID #60 tabs 11/08/22 magnesium (500 mg) tablet calcitriol 0.5 mcg capsule 0.5 mcg PO BID #360 caps 04/21/23 diclofenac sodium 1 % topical gel 4 g topical QID #100 grams 04/21/23 gabapentin 300 mg capsule 300 mg PO BID #180 caps 06/23/23 cyclobenzaprine 10 mg tablet 10 mg PO TID PRN muscle spasm #30 07/04/23 tabs clonazepam 1 mg tablet 1 mg PO BID #56 tabs 07/21/23 omeprazole 40 mg capsule,delayed 40 mg PO DAILY #90 caps 07/21/23 release Allergies Allergy/AdvReac Type Severity Reaction Status Date / Time codeine Allergy Intermediate pass out Verified 08/02/23 14:16 Penicillins Allergy Skin Rash Verified 08/02/23 14:16 amoxicillin AdvReac Intermediate Nausea Verified 08/02/23 14:16 dextromethorphan AdvReac Intermediate Other (See Verified 08/02/23 14:16 [From NyQuil] Comment) doxylamine [From NyQuil] AdvReac Intermediate Other (See Verified 08/02/23 14:16 Comment) pseudoephedrine [From NyQuil] AdvReac Intermediate Other (See Verified 08/02/23 14:16 Comment) General Stated Complaint: Abd Prob ADRIANA: 3 Exam Narrative Exam Narrative: Review of Systems: All systems reviewed & are unremarkable except as noted in HPI and below Well-developed, no acute distress NCAT PERRL, normal conjunctiva Moist mucous membranes Tachycardic Unlabored respiratory effort Nondistended abdomen, no focal tenderness Extremities w/o deformity, no cyanosis, no edema No rashes or lesions. no focal neurologic deficits Anxious Course Vital Signs Vital signs: Vital Signs Temperature 36.9 C 08/02/23 14:00 Pulse 112 H 08/02/23 14:00 Respiratory Rate 18 08/02/23 14:00 Blood Pressure 118/86 08/02/23 14:00 Pulse Oximetry 98 08/02/23 14:00 Temperature 36.9 C 08/02/23 14:09 Temperature Source Skin 08/02/23 14:09 Pulse 112 H 08/02/23 14:09 Respiratory Rate 18 08/02/23 14:09 Respiratory Effort Normal, Non-Labored 08/02/23 14:09 Blood Pressure 118/86 08/02/23 14:09 Blood Pressure Position Sitting 08/02/23 14:09 Pulse Oximetry 98 08/02/23 14:09 Oxygen Delivery Method Room Air 08/02/23 14:09 Oxygen Flow Rate 0 08/02/23 14:09 Pain Level 6 08/02/23 14:09 Comment took tylenol earlier today drank bottle of mag citrate 08/02/23 14:09 Medical Decision Making Emergent evaluation of abdominal pain. Abdominal examination is benign. Patient is well-known to the emergency department and visits frequently. This is his fourth visit this week. I reviewed prior lab work, his lab work has been benign and I do not feel that there is any indication for repeat lab work today as he has had no vomiting or diarrhea and appears well-hydrated on examination. I reviewed his prior imaging. His last abdominal CT was June 20. The patient had significant constipation noted on the imaging at that time. Given his benign abdominal examination, I do not feel that repeated imaging today is warranted. Will give a dose of droperidol for symptom improvement. I believe that this medication will also help with his general anxiety. I reviewed prior EKGs, last EKG performed this week and no evidence of prolonged QT. The patient has persistent tachycardia over all of his visits. After droperidol, patient reports resolution of symptoms and his anxiety is improved. At this time he stable for discharge. Recommend close follow-up with his primary outpatient team. Medical Records Medical records reviewed: Yes I reviewed the patient's medical records. Quality:SDOH Health Related Social Needs: Health related social needs transpo insecurity PFSH All Active Problems (Updated 08/02/23 @ 15:22 by Jeovany Elias MD) Abdominal pain (Acute) Anxiety about health (Acute) Abdominal pain (Acute) Anemia (Chronic) Encounter for laboratory test (Acute) Tingling (Acute) Chest pain of uncertain etiology (Acute) Hypernatremia (Acute) Cervical radiculopathy (Acute) URI (upper respiratory infection) (Acute) Left-sided Flower's palsy (Acute) Neck pain on left side (Acute) Constipation (Acute) Grief reaction (Chronic) Opiate dependence, continuous (Acute) Cellulitis (Acute) Cholelithiases (Acute) 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 Left arm numbness (Acute) Gynecomastia, male (Acute) b/l, per CT (Jul 2022).. Possible 2' Methadone, Clnzpm (?). Surg eval (+)/No further action. CKD (chronic kidney disease) stage 2, GFR 60-89 ml/min (Acute) GFR 64-65, with Hx FLORESITA and GFR < 45 Complex medical condition (Chronic) Serious electrolyte imbalances, with gynecomastia, possible MEN Dx, CKD and anemia with baseline anxiety and Hx PTSD. History of electrolyte imbalance (Acute) Neck pain on left side (Acute) with shoulder, upper back pain.. torticollis, radiating into left hip/leg Pulmonary nodule 1 cm or greater in diameter (Chronic) Therapeutic opioid induced constipation (Acute) Sphincter of Oddi dysfunction (Chronic) Abnormal CT scan, kidney (Acute) Intrahepatic bile duct dilation (Acute) Common bile duct dilatation (Acute) Abdominal pain (Acute) Iatrogenic hypocalcemia (Acute) Multiple endocrine neoplasia type I (Chronic) Chronic constipation (Chronic) Primary hyperparathyroidism (Chronic) Depression (Chronic) Hypomagnesemia (Chronic) Hypocalcemia (Chronic) Depression (Chronic) Suicidal ideation (Acute) Elevated parathyroid hormone (Acute) Family history of coronary arteriosclerosis (Chronic) Father of SC at 50, mother had SC at 42 Severe anxiety with panic (Chronic) Cellulitis (Acute) Medical History Hypocalcemia Anxiety Depression Hyperlipidemia Family history of multiple endocrine neoplasia, type 1 PTSD (post-traumatic stress disorder) Per pt. states no triggers at this time. Surgical History H/O parathyroidectomy Family History Mother Anxiety Asthma Depression Sister Anxiety Depression Father Cancer lung & stomach Depression Diabetes Hypertension MEN 1 (multiple endocrine neoplasia) Social History Smoking/Tobacco Use Status: Never Smoking risk assessment performed?: Yes Alcohol Intake: never Drug use: Rarely Substance use type: does not use and former substance user Adopted: No Caregiver/Support person: No Foster care: No Household members: none Housing: apartment Number of Children: 0 Communication Needs: None Education Level: high school Do you need help understanding health information?: Never 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 and animals: Yes (Ally) Pets and animals: dog(s) Sexually active: No Do you think of yourself as: straight/heterosexual Current gender identity: male What is your relationship status?: How often do you talk on the phone with friends or family?: twice per week How often do you get together with friends or relatives?: never Do you belong to any clubs or organized social groups?: no Panel score (0-1 are the most socially isolated patients): 0 What type of physical activity do you participate in: walking Duration: 15-30 minutes/day Frequency: 5-6 times per week Maryam/Synagogue: [employer] Special maryam needs: No Seatbelt use: always Helmet use: Yes Helmet use: always 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 Discharge Plan Disposition Patient Disposition: Home Condition: Stable Discharge Details Clinical Impression: Anxiety about health, Abdominal pain Primary Care Provider: Brendon Vivar ED Provider: Jeovany Elias Home Meds and New Rx's Prescriptions: No Action gabapentin 300 mg capsule 300 mg PO BID Qty: 180 3RF methadone 10 mg/5 mL solution 105 mg PO QAM magnesium gluconate 27 mg magnesium (500 mg) tablet 27 mg PO BID Qty: 60 3RF calcitriol 0.5 mcg capsule 0.5 mcg PO BID Qty: 360 3RF Hold Instructions: Resume on 06/15/22. diclofenac sodium 1 % gel 4 g topical QID Qty: 100 6RF Rx Instructions: apply to single knee, ankle, foot; for foot includes sole/toes/top of foot polyethylene glycol 3350 17 gram/dose powder 17 g PO DAILY clonazepam 1 mg tablet 1 mg PO BID Qty: 56 0RF omeprazole 40 mg capsule,delayed release(DR/EC) 40 mg PO DAILY Qty: 90 3RF cyclobenzaprine 10 mg tablet 10 mg PO TID PRN (Reason: muscle spasm) Qty: 30 3RF calcium carbonate [Tums] 200 mg calcium (500 mg) tablet,chewable 2,000 mg PO BID Hold Instructions: Resume on 05/12/23. Please hold your nightly dose tonight and your a.m. dose tomorrow morning. Discharge Instructions Additional Instructions: please follow up with your primary care team
[2023-08-02] MEDS: Droperidol 5 MG/2 ML VIAL IM (14:42)
== END 2023-08-02 15:41 | disposition home or self-care (01) ==
PROVIDERS: Emergency Provider Emergency Medicine; PCP Family Medicine
DX: R10.9 Unspecified abdominal pain (principal); F41.9 Anxiety disorder, unspecified
CPT/HCPCS: 96372; 99284; J1790

== ENCOUNTER 2023-08-12 05:08 | Emergency (ER) | payer OTHER, SELFPAY ==
[2023-08-12 05:12] VITALS: BP 154/92; PULSE 131; RESP 18; TEMP 36.6; O2SAT 99
--- NOTE | 2023-08-12 05:15 | RT.EKG_ITS ---
APPROVED REPORT Exam: Resting ECG Reason for Exam: sob Patient Location: E HR:120 bpm ECG Measurements Heart Rate 120 AXIS MS 143 P 38 QRSd 92 QRS 56 QT 312 T -21 QTc 441 Conclusion Gender not entered, assumed to be male for purpose of ECG interpretation Sinus tachycardia...rate> 99 Phuysician: no stemi, Q3T3, unchanged otherwise
--- NOTE | 2023-08-12 05:28 | ED.GENADUL_ITS ---
Discharge Plan Disposition Patient Disposition: Home Condition: Good Discharge Details Clinical Impression: Dehydration, Hypokalemia Primary Care Provider: Brendon Vivar ED Provider: Richy Eagle Home Meds and New Rx's Prescriptions: No Action gabapentin 300 mg capsule 300 mg PO BID Qty: 180 3RF methadone 10 mg/5 mL solution 105 mg PO QAM magnesium gluconate 27 mg magnesium (500 mg) tablet 27 mg PO BID Qty: 60 3RF calcitriol 0.5 mcg capsule 0.5 mcg PO BID Qty: 360 3RF Hold Instructions: Resume on 06/15/22. diclofenac sodium 1 % gel 4 g topical QID Qty: 100 6RF Rx Instructions: apply to single knee, ankle, foot; for foot includes sole/toes/top of foot polyethylene glycol 3350 17 gram/dose powder 17 g PO DAILY clonazepam 1 mg tablet 1 mg PO BID Qty: 56 0RF omeprazole 40 mg capsule,delayed release(DR/EC) 40 mg PO DAILY Qty: 90 3RF cyclobenzaprine 10 mg tablet 10 mg PO TID PRN (Reason: muscle spasm) Qty: 30 3RF calcium carbonate [Tums] 200 mg calcium (500 mg) tablet,chewable 2,000 mg PO BID Hold Instructions: Resume on 05/12/23. Please hold your nightly dose tonight and your a.m. dose tomorrow morning. Discharge Instructions Instructions: Dehydration (ED), Hypokalemia (ED) Additional Instructions: At this time your potassium was slightly low and you were dehydrated. However the remainder of your workup has returned normal. Your D-dimer was normal suggesting no signs of blood clots. No evidence of major infection of the bacterial type. Your cardiac markers are normal. Please continue to take your home supplements. COVID flu and RSV were negative. Please try to stick with a diet high in potassium for the next few days, such as legumes, bananas, and avocados. If you notice any worsening of your symptoms, or any new symptoms such as vomiting, diarrhea, fever, chills, shortness of breath, chest pain, numbness, weakness, or fainting , please return immediately to the emergency department for reevaluation. Please follow up with your primary care provider as soon as possible for reassessment and reevaluation. As always, it was a pleasure participating in your medical care today. Referrals: Brendon Vivar DO [Primary Care Provider] - Discharge Data Discharge Date/Time-TO BE ENTERED AT DEPARTURE: 08/12/23 07:55 HPI General Date/Time Provider Initiated Documentation: 08/12/23 05:10 . HPI Narrative: This is a 27-year-old male with a past medical history significant for anxiety, depression, high cholesterol, men type I, multiple electrolyte abnormalities with subsequent parathyroidectomy on 03/26/2022 at [facility] [place], PTSD, GERD who presents today for evaluation of cough and mild shortness of breath. Patient states that for the last 24 to 48 hours he has felt fatigued, chills, mild productive cough. He denies any vomiting or diarrhea. He states he feels generally ill. He states that this feels similar to previous episodes where his electrolytes were off. He denies any trauma, falls, headache or neck pain. He does admit to occasional intermittent whole body tingling. He denies any other complaints at this time. No other modifying factors. He did take all of his medications and states that he has been doing this regularly. Related Data Home Medications Medication Instructions Recorded Confirmed magnesium gluconate 27 mg 27 mg PO BID #60 tabs 11/08/22 08/12/23 magnesium (500 mg) tablet calcium carbonate 200 mg calcium 2,000 mg PO BID 02/02/23 08/12/23 (500 mg) chewable tablet (Tums) calcitriol 0.5 mcg capsule 0.5 mcg PO BID #360 caps 04/21/23 08/12/23 diclofenac sodium 1 % topical gel 4 g topical QID #100 grams 04/21/23 08/12/23 methadone 10 mg/5 mL oral solution 105 mg PO QAM 06/12/23 08/12/23 polyethylene glycol 3350 17 17 g PO DAILY 06/12/23 08/12/23 gram/dose oral powder gabapentin 300 mg capsule 300 mg PO BID #180 caps 06/23/23 08/12/23 cyclobenzaprine 10 mg tablet 10 mg PO TID PRN muscle spasm #30 07/04/23 08/12/23 tabs clonazepam 1 mg tablet 1 mg PO BID #56 tabs 07/21/23 08/12/23 omeprazole 40 mg capsule,delayed 40 mg PO DAILY #90 caps 07/21/23 08/12/23 release Previous Rx's Medication Instructions Recorded magnesium gluconate 27 mg 27 mg PO BID #60 tabs 11/08/22 magnesium (500 mg) tablet calcitriol 0.5 mcg capsule 0.5 mcg PO BID #360 caps 04/21/23 diclofenac sodium 1 % topical gel 4 g topical QID #100 grams 04/21/23 gabapentin 300 mg capsule 300 mg PO BID #180 caps 06/23/23 cyclobenzaprine 10 mg tablet 10 mg PO TID PRN muscle spasm #30 07/04/23 tabs clonazepam 1 mg tablet 1 mg PO BID #56 tabs 07/21/23 omeprazole 40 mg capsule,delayed 40 mg PO DAILY #90 caps 07/21/23 release Allergies Allergy/AdvReac Type Severity Reaction Status Date / Time codeine Allergy Intermediate pass out Verified 08/12/23 05:18 Penicillins Allergy Skin Rash Verified 08/12/23 05:18 amoxicillin AdvReac Intermediate Nausea Verified 08/12/23 05:18 dextromethorphan AdvReac Intermediate Other (See Verified 08/12/23 05:18 [From NyQuil] Comment) doxylamine [From NyQuil] AdvReac Intermediate Other (See Verified 08/12/23 05:18 Comment) pseudoephedrine [From NyQuil] AdvReac Intermediate Other (See Verified 08/12/23 05:18 Comment) General Stated Complaint: GenMedical ADRIANA: 4 Review of Systems All systems reviewed & are unremarkable except as noted in HPI and below Exam Narrative Exam Narrative: 1.Const: Well-nourished, Well-developed, appearing stated age 2.Eyes: PERRL, no conjunctival injection, and symmetrical lids. 3.ENT: Atraumatic external nose and ears. Dry MM. Neck: Symmetric, trachea midline, No thyromegaly. 4.CVS: +S1/S2, No murmurs or gallops. Peripheral pulses 2+ and equal in all extremities. Brisk capillary refill in all extremities. 5.RESP: Unlabored respiratory effort. Clear to auscultation bilaterally. No wheezes rales or rhonchi 6.GI: Soft, Nontender/Nondistended, No hepatosplenomegaly. No guarding or rebound. 7.MSK: Normocephalic/Atraumatic, Extremities w/o deformity or ttp No cyanosis or clubbing, Normal movement of all extremities 8.Skin: Warm, Dry. No rashes or lesions. 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 Sensation grossly intact, no focal neurologic deficits. 10.Psych: (AAO) x3. Appropriate mood and affect Course Vital Signs Vital signs: Vital Signs Temperature 36.6 C 08/12/23 05:12 Pulse 131 H 08/12/23 05:12 Respiratory Rate 18 08/12/23 05:12 Blood Pressure 154/92 H 08/12/23 05:12 Pulse Oximetry 99 08/12/23 05:12 Temperature 36.6 C 08/12/23 05:12 Temperature Source Oral 08/12/23 05:12 Pulse 131 H 08/12/23 05:12 Respiratory Rate 18 08/12/23 05:12 Respiratory Effort Normal, Non-Labored 08/12/23 05:17 Blood Pressure 154/92 H 08/12/23 05:12 Pulse Oximetry 99 08/12/23 05:12 Oxygen Delivery Method Room Air 08/12/23 05:12 Oxygen Flow Rate 0 08/12/23 05:12 Pain Level 4 08/12/23 05:12 Medical Decision Making This is a 27-year-old male with a past medical history significant for anxiety, depression, high cholesterol, men type I, multiple electrolyte abno rmalities with subsequent parathyroidectomy on 03/26/2022 at [facility] [place], PTSD, GERD who presents today for evaluation of cough and mild shortness of breath. Patient states that for the last 24 to 48 hours he has felt fatigued, chills, mild productive cough. He denies any vomiting or diarrhea. He states he feels generally ill. He states that this feels similar to previous episodes where his electrolytes were off. He denies any trauma, falls, headache or neck pain. He does admit to occasional intermittent whole body tingling. He denies any other complaints at this time. No other modifying factors. He did take all of his medications and states that he has been doing this regularly. Exam demonstrates no significant abnormalities in regards to lung sounds. Lungs are clear throughout. Patient does appear minimally sweaty. No calf tenderness. No recent long trips, surgeries or procedures. Heart rate is in the 130s to 140s. Blood pressure is mildly hypertensive. Bedside POCUS demons trates no evidence of large focal consolidation to suggest pneumonia. Occasional intermittent scattered B-line in each base bilaterally. No other significant abnormalities otherwise. Patient's tachycardia and general malaise and coughing is concerning. His tachycardia is also concerning. Will order D- dimer to evaluate for PE, we will rehydrate with a liter of lactated Ringer's. Will evaluate for concerning electrolyte abnormalities, will monitor closely and reassess. We will test for flu COVID and RSV. 7:27 AM D-dimer normal. Bedside POCUS shows no evidence of pneumonia. COVID flu and RSV negative. No white count. Electrolytes demonstrate slightly low potassium, magnesium 1.7. D-dimer normal, troponin normal, thyroid function normal. On reassessment after fluids patient is feeling much better. He feels well and feels comfortable going home. Patient has been given 40 mEq of potassium orally, and 10 mEq IV. Patient tolerated this well. Patient will be discharged home. Discussed red flags for which to return. Suspect dehydration, hypokalemia, and potential viral etiology to be the cause of his symptoms tonight. No evidence of other acute life-threatening etiology. I have extensively reviewed the treatment plan and discharge instructions with the patient. I have addressed all patient concerns at this time. The patient was made aware of what symptoms to monitor for that would warrant a return to the emergency department. Discussed the plan with the patient, they demonstrate verbal understanding and agreement with our assessment and plan at this time. The documentation in this chart was dictated using Swapbox dictation software. Please excuse any dictation errors. Quality:SDOH Health Related Social Needs: Health related social needs transpo insecurity PFSH All Active Problems (Updated 08/12/23 @ 07:27 by Richy Eagle DO) Hypokalemia (Acute) Dehydration (Acute) Abdominal pain (Acute) Anxiety about health (Acute) Abdominal pain (Acute) Anemia (Chronic) Encounter for laboratory test (Acute) Tingling (Acute) Chest pain of uncertain etiology (Acute) Hypernatremia (Acute) Cervical radiculopathy (Acute) URI (upper respiratory infection) (Acute) Left-sided Flower's palsy (Acute) Neck pain on left side (Acute) Constipation (Acute) Grief reaction (Chronic) Opiate dependence, continuous (Acute) Cellulitis (Acute) Cholelithiases (Acute) 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 Possible 2' Methadone, Clnzpm (?). Surg eval (+)/No further action. CKD (chronic kidney disease) stage 2, GFR 60-89 ml/min (Acute) GFR 64-65, with Hx FLORESITA and GFR < 45 Complex medical condition (Chronic) Serious electrolyte imbalances, with gynecomastia, possible MEN Dx, CKD and anemia with baseline anxiety and Hx PTSD. History of electrolyte imbalance (Acute) Neck pain on left side (Acute) with shoulder, upper back pain.. torticollis, radiating into left hip/leg Pulmonary nodule 1 cm or greater in diameter (Chronic) Therapeutic opioid induced constipation (Acute) Sphincter of Oddi dysfunction (Chronic) Abnormal CT scan, kidney (Acute) Intrahepatic bile duct dilation (Acute) Common bile duct dilatation (Acute) Abdominal pain (Acute) Iatrogenic hypocalcemia (Acute) Multiple endocrine neoplasia type I (Chronic) Chronic constipation (Chronic) Primary hyperparathyroidism (Chronic) Depression (Chronic) Hypomagnesemia (Chronic) Hypocalcemia (Chronic) Depression (Chronic) Suicidal ideation (Acute) Elevated parathyroid hormone (Acute) Family history of coronary arteriosclerosis (Chronic) Father of AR at 50, mother had AR at 42 Severe anxiety with panic (Chronic) Cellulitis (Acute) Medical History Hypokalemia Hypocalcemia Anxiety Depression Hyperlipidemia Family history of multiple endocrine neoplasia, type 1 PTSD (post-traumatic stress disorder) Per pt. states no triggers at this time. Surgical History H/O parathyroidectomy Family History Mother Anxiety Asthma Depression Sister Anxiety Depression Father Cancer lung & stomach Depression Diabetes Hypertension MEN 1 (multiple endocrine neoplasia) Social History Smoking/Tobacco Use Status: Never Smoking risk assessment performed?: Yes Alcohol Intake: never Drug use: Rarely Substance use type: does not use and former substance user Adopted: No Caregiver/Support person: No Foster care: No Household members: none Housing: apartment Number of Children: 0 Communication Needs: None Education Level: high school Do you need help understanding health information?: Never 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 and animals: Yes (Ally) Pets and animals: dog(s) Sexually active: No Do you think of yourself as: straight/heterosexual Current gender identity: male What is your relationship status?: How often do you talk on the phone with friends or family?: twice per week How often do you get together with friends or relatives?: never Do you belong to any clubs or organized social groups?: no Panel score (0-1 are the most socially isolated patients): 0 What type of physical activity do you participate in: walking Duration: 15-30 minutes/day Frequency: 5-6 times per week Maryam/Lutheran: Episcopal Special maryam needs: No Seatbelt use: always Helmet use: Yes Helmet use: always Drive 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 route sales 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 POCUS Exam (ED) Limited Thoracic Lung Exam DATE OF EXAM: 08/12/23 TIME OF EXAM: 05:45 PROVIDER THAT PERFORMED THE STUDY: Richy Eagle IS THIS A REPEAT EXAM DURING THIS ENCOUNTER: No REASON FOR EXAM: Chest pain VISUALIZED STRUCTURES: right lateral, left lateral, right posterior and left posterior PERTINENT FINDINGS/IMPRESSION: B-lines/left side and B-lines/right side; lung sliding left side, lung sliding left side, no pneumonia noted, no pneumothorax, no pleural effusion on the left and no pleural effusion on the right Exam complete
[2023-08-12 05:38] LABS: Abs Immature Grans 0.04 10^3/uL (0.0-0.06); Absolute Basophil Count 0.05 10^3/uL (0.0-0.2); Absolute Eosinophil Count 0.23 10^3/uL (0.0-0.7); Absolute Neutrophil Count 5.35 10^3/uL (1.2-6.7); Basophils % 0.5; Eosinophils % 2.4; HCT 37.4 % (40.0-50.0); HGB 12.6 g/dL (13.5-17.5); Immature Grans % 0.4; Lymphocytes % 28.5; MCH 30.6 pg (27.0-33.0); MCHC 33.7 % (32.0-36.0); MCV 91 fL (80-95); MPV 10.2 fL (8.0-11.0); Monocytes % 11.6; Neutrophils % 56.6; Platelet Count 303 10^3/uL (130-400); RBC 4.12 10^6/uL (4.36-5.78); RDW 12.3 % (11.8-14.1); RDW-SD 40.5 fL; WBC 9.47 10^3/uL (4.4-10.8)
[2023-08-12 05:40] LABS: Lactate 2.7 mmol/L (0.6-1.4)
[2023-08-12] MEDS: Lactated Ringers 1,000 ML 1000 ML IV (05:47)
[2023-08-12 05:58] LABS: PTT Activated 26.7 sec (23.6-32.8); Prothrombin Time 10.1 sec (9.1-11.1)
[2023-08-12 06:03] LABS: COVID-19 PCR Negative (Negative); Influenza A PCR Negative (Negative); Influenza B PCR Negative (Negative); RSV PCR Negative (Negative)
[2023-08-12 06:05] LABS: Source Nasopharynx
[2023-08-12 06:05] LABS: NT-proBNP 25 pg/mL (<300)
[2023-08-12 06:08] LABS: Troponin I < 50 ng/L (< or =60)
[2023-08-12 06:11] LABS: D-Dimer 368 ng/mlFEU (<500)
[2023-08-12 06:13] LABS: ALT 45 U/L (16-63); AST 29 U/L (15-37); Albumin 3.3 g/dL (3.4-5.0); Alkaline Phosphatase 123 U/L (46-116); BUN 14 mg/dL (7-18); Bilirubin, Total 0.6 mg/dL (0.2-1.0); CREATININE 1.6 mg/dL (0.70-1.30); Calcium 8.6 mg/dL (8.5-10.1); Chloride 101 mmol/L (98-107); Estimated GFR 59.44 (mL/min/1.73m2); Glucose 126 mg/dL (74-106); Potassium 3.1 mmol/L (3.5-5.1); Sodium 142 mmol/L (136-145); Total Protein 7.2 g/dL (6.4-8.2)
[2023-08-12] MEDS: Potassium Chloride 20 MEQ TABCR 40 MEQ PO (06:23)
[2023-08-12 06:31] LABS: Magnesium 1.7 mg/dL (1.8-2.4)
[2023-08-12] MEDS: POTASSIUM CHLORIDE 10 MEQ/100 ML BAG 100 MEQ IVPB (06:38)
[2023-08-12 07:28] LABS: Lactate 0.8 mmol/L (0.6-1.4)
[2023-08-12 07:55] VITALS: BP 118/65; BP 154/92; PULSE 131; PULSE 91; RESP 10; RESP 18; TEMP 36.6; O2SAT 96; O2SAT 99
== END 2023-08-12 07:55 | disposition home or self-care (01) ==
PROVIDERS: Emergency Provider Student in an Organized Health Care Education/Training Program; PCP Family Medicine
DX: R05.1 Acute cough (principal); R06.02 Shortness of breath; I10 Essential (primary) hypertension; E87.6 Hypokalemia; E86.0 Dehydration; Z86.59 Personal history of other mental and behavioral disorders
CPT/HCPCS: 76604; 80053; 87637; 93005; 96361; 96365; 99284; 83605; 83735; 83880; 84443; 84484; 85025; 85379; 85610; 85730; 93010; 99283; J3480

== ENCOUNTER 2023-08-13 11:29 | Emergency (ER) | payer OTHER, SELFPAY ==
--- NOTE | 2023-08-13 11:30 | DI.RAD_ITS ---
Exam(s) XR KNEE LT 3V AP,LAT,MARGARET EXAM: XR KNEE LT 3V AP,LAT,MARGARET CLINICAL HISTORY: non traumatic. TECHNIQUE: 2D digital imaging was performed of the left knee. Three images were obtained. AP, late ral and PA tunnel views were obtained. COMPARISON: No exams were available for comparison FINDINGS: BONES: No acute fracture is present. No bony destructive lesion is seen. JOINTS: The knee is normally aligned. No joint effusion is seen. No loose body. SOFT TISSUE: Normal. IMPRESSION: Normal radiographs of the left knee. DATA REPOSITORY: RADIATION DOSE DELIVERED:
[2023-08-13 11:34] VITALS: BP 137/86; PULSE 98; RESP 16; TEMP 37.1; O2SAT 95
--- NOTE | 2023-08-13 12:40 | ED.GENADUL_ITS ---
Discharge Plan Disposition Patient Disposition: Home Condition: Stable Discharge Details Clinical Impression: Plantar fasciitis of left foot, Knee pain Primary Care Provider: Brendon Vivar ED Provider: Susana Winters Home Meds and New Rx's Prescriptions: No Action gabapentin 300 mg capsule 300 mg PO BID Qty: 180 3RF methadone 10 mg/5 mL solution 105 mg PO QAM magnesium gluconate 27 mg magnesium (500 mg) tablet 27 mg PO BID Qty: 60 3RF calcitriol 0.5 mcg capsule 0.5 mcg PO BID Qty: 360 3RF Hold Instructions: Resume on 06/15/22. diclofenac sodium 1 % gel 4 g topical QID Qty: 100 6RF Rx Instructions: apply to single knee, ankle, foot; for foot includes sole/toes/top of foot polyethylene glycol 3350 17 gram/dose powder 17 g PO DAILY clonazepam 1 mg tablet 1 mg PO BID Qty: 56 0RF omeprazole 40 mg capsule,delayed release(DR/EC) 40 mg PO DAILY Qty: 90 3RF cyclobenzaprine 10 mg tablet 10 mg PO TID PRN (Reason: muscle spasm) Qty: 30 3RF calcium carbonate [Tums] 200 mg calcium (500 mg) tablet,chewable 2,000 mg PO BID Hold Instructions: Resume on 05/12/23. Please hold your nightly dose tonight and your a.m. dose tomorrow morning. Discharge Instructions Instructions: Plantar Fasciitis (ED), Knee Pain (ED), Plantar Fasciitis Exercises (ED) Referrals: Barrington Arciniega PA [[facility] [employer]S[facility]] - Discharge Data Discharge Physician: Susana Winters [facility] General Mode of arrival: ambulatory . Date/Time Provider Initiated Documentation: 08/13/23 11:34 . Limitations to Documentation: no limitations . Information obtained by: patient . HPI Narrative: Patient reports left knee pain non-traumatic that has been occurring for months intermittently. Reports that the pain is radiating distally today. Related Data Home Medications Medication Instructions Recorded Confirmed magnesium gluconate 27 mg 27 mg PO BID #60 tabs 11/08/22 08/13/23 magnesium (500 mg) tablet calcium carbonate 200 mg calcium 2,000 mg PO BID 02/02/23 08/13/23 (500 mg) chewable tablet (Tums) calcitriol 0.5 mcg capsule 0.5 mcg PO BID #360 caps 04/21/23 08/13/23 diclofenac sodium 1 % topical gel 4 g topical QID #100 grams 04/21/23 08/13/23 methadone 10 mg/5 mL oral solution 105 mg PO QAM 06/12/23 08/13/23 polyethylene glycol 3350 17 17 g PO DAILY 06/12/23 08/13/23 gram/dose oral powder gabapentin 300 mg capsule 300 mg PO BID #180 caps 06/23/23 08/13/23 cyclobenzaprine 10 mg tablet 10 mg PO TID PRN muscle spasm #30 07/04/23 08/13/23 tabs clonazepam 1 mg tablet 1 mg PO BID #56 tabs 07/21/23 08/13/23 omeprazole 40 mg capsule,delayed 40 mg PO DAILY #90 caps 07/21/23 08/13/23 release Previous Rx's Medication Instructions Recorded magnesium gluconate 27 mg 27 mg PO BID #60 tabs 11/08/22 magnesium (500 mg) tablet calcitriol 0.5 mcg capsule 0.5 mcg PO BID #360 caps 04/21/23 diclofenac sodium 1 % topical gel 4 g topical QID #100 grams 04/21/23 gabapentin 300 mg capsule 300 mg PO BID #180 caps 06/23/23 cyclobenzaprine 10 mg tablet 10 mg PO TID PRN muscle spasm #30 07/04/23 tabs clonazepam 1 mg tablet 1 mg PO BID #56 tabs 07/21/23 omeprazole 40 mg capsule,delayed 40 mg PO DAILY #90 caps 07/21/23 release Allergies Allergy/AdvReac Type Severity Reaction Status Date / Time codeine Allergy Intermediate pass out Verified 08/12/23 05:18 Penicillins Allergy Skin Rash Verified 08/12/23 05:18 amoxicillin AdvReac Intermediate Nausea Verified 08/12/23 05:18 dextromethorphan AdvReac Intermediate Other (See Verified 08/12/23 05:18 [From NyQuil] Comment) doxylamine [From NyQuil] AdvReac Intermediate Other (See Verified 08/12/23 05:18 Comment) pseudoephedrine [From NyQuil] AdvReac Intermediate Other (See Verified 08/12/23 05:18 Comment) General Stated Complaint: Orthopedic ADRIANA: 4 Review of Systems All systems reviewed & are unremarkable except as noted in HPI and below Exam Narrative Exam Narrative: Obese white male in no acute distress older appearing than stated age chroni dean ill-appearing skin [place] warm dry well-perfused vital signs are stable head is atraumatic oral mucosa moist respirations even and unlabored moves all extremities no edema skin with no rashes or lesions. Left knee no obvious deformity no effusion full range of motion no bruising lacerations Course Vital Signs Vital signs: Vital Signs Temperature 37.1 C 08/13/23 11:34 Pulse 98 H 08/13/23 11:34 Respiratory Rate 16 08/13/23 11:34 Blood Pressure 137/86 08/13/23 11:34 Pulse Oximetry 95 08/13/23 11:34 Temperature 37.1 C 08/13/23 11:34 Temperature Source Oral 08/13/23 11:34 Pulse 98 H 08/13/23 11:34 Respiratory Rate 16 08/13/23 11:34 Blood Pressure 137/86 08/13/23 11:34 Pulse Oximetry 95 08/13/23 11:34 Oxygen Delivery Method Room Air 08/13/23 11:34 Oxygen Flow Rate 0 08/13/23 11:34 Pain Level 4 08/13/23 11:34 Comment ibuprofen at 10:00am today 08/13/23 11:34 Medical Decision Making Nontraumatic left knee pain. Has been present for months. Pain has been intermittent he is able to ambulate. X-ray results and final disposition pending report and care of patient handed off to Dr. Winters for final disposition Imaging Data Radiologic Study: Imaging: X-Ray (left knee) Radiologist's impression: Exam(s) XR KNEE LT 3V AP,LAT,MARGARET EXAM: XR KNEE LT 3V AP,LAT,MARGARET CLINICAL HISTORY: non traumatic. TECHNIQUE: 2D digital imaging was performed of the left knee. Three images wer e obtained. AP, lateral and PA tunnel views were obtained. COMPARISON: No exams were available for comparison FINDINGS: BONES: No acute fracture is present. No bony destructive lesion is seen. JOINTS: The knee is normally aligned. No joint effusion is seen. No loose body. SOFT TISSUE: Normal. IMPRESSION: Normal radiographs of the left knee. Quality:SDOH Health Related Social Needs: Health related social needs transpo insecurity PFSH All Active Problems (Updated 08/13/23 @ 13:15 by Susana Winters MD) Knee pain (Acute) Plantar fasciitis of left foot (Acute) Hypokalemia (Acute) Dehydration (Acute) Abdominal pain (Acute) Anxiety about health (Acute) Abdominal pain (Acute) Anemia (Chronic) Encounter for laboratory test (Acute) Tingling (Acute) Chest pain of uncertain etiology (Acute) Hypernatremia (Acute) Cervical radiculopathy (Acute) URI (upper respiratory infection) (Acute) Left-sided Flower's palsy (Acute) Neck pain on left side (Acute) Constipation (Acute) Grief reaction (Chronic) Opiate dependence, continuous (Acute) Cellulitis (Acute) Cholelithiases (Acute) 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 ED Left arm numbness (Acute) Gynecomastia, male (Acute) b/l, per CT (Jul 2022).. Possible 2' Methadone, Clnzpm (?). Surg eval (+)/No further action. CKD (chronic kidney disease) stage 2, GFR 60-89 ml/min (Acute) GFR 64-65, with Hx FLORESITA and GFR < 45 Complex medical condition (Chronic) Serious electrolyte imbalances, with gynecomastia, possible MEN Dx, CKD and anemia with baseline anxiety and Hx PTSD. History of electrolyte imbalance (Acute) Neck pain on left side (Acute) with shoulder, upper back pain.. torticollis, radiating into left hip/leg Pulmonary nodule 1 cm or greater in diameter (Chronic) Therapeutic opioid induced constipation (Acute) Sphincter of Oddi dysfunction (Chronic) Abnormal CT scan, kidney (Acute) Intrahepatic bile duct dilation (Acute) Common bile duct dilatation (Acute) Abdominal pain (Acute) Iatrogenic hypocalcemia (Acute) Multiple endocrine neoplasia type I (Chronic) Chronic constipation (Chronic) Primary hyperparathyroidism (Chronic) Depression (Chronic) Hypomagnesemia (Chronic) Hypocalcemia (Chronic) Depression (Chronic) Suicidal ideation (Acute) Elevated parathyroid hormone (Acute) Family history of coronary arteriosclerosis (Chronic) Father of [place] at 50, mother had [place] at 42 Severe anxiety with panic (Chronic) Cellulitis (Acute) Medical History Hypokalemia Hypocalcemia Anxiety Depression Hyperlipidemia Family history of multiple endocrine neoplasia, type 1 PTSD (post-traumatic stress disorder) Per pt. states no triggers at this time. Surgical History H/O parathyroidectomy Family History Mother Anxiety Asthma Depression Sister Anxiety Depression Father Cancer lung & stomach Depression Diabetes Hypertension MEN 1 (multiple endocrine neoplasia) Social History Smoking/Tobacco Use Status: Never Smoking risk assessment performed?: Yes Alcohol Intake: never Drug use: Rarely Substance use type: does not use and former substance user Adopted: No Caregiver/Support person: No Foster care: No Household members: none Housing: apartment Number of Children: 0 Communication Needs: None Education Level: high school Do you need help understanding health information?: Never 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 and animals: Yes (Ally) Pets and animals: dog(s) Sexually active: No Do you think of yourself as: straight/heterosexual Current gender identity: male What is your relationship status?: How often do you talk on the phone with friends or family?: twice per week How often do you get together with friends or relatives?: never Do you belong to any clubs or organized social groups?: no Panel score (0-1 are the most socially isolated patients): 0 What type of physical activity do you participate in: walking Duration: 15-30 minutes/day Frequency: 5-6 times per week Maryam/Pentecostalism: Protestant Special maryam needs: No Seatbelt use: always Helmet use: Yes Helmet use: always Drive 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 bull 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
--- NOTE | 2023-08-13 13:10 | W.ED.GENAD ---
Discharge Plan Disposition Patient Disposition: Home Condition: Stable Discharge Details Chief Complaint: Orthopedic Clinical Impression: Plantar fasciitis of left foot, Knee pain Primary Care Provider: Brendon Vivar ED Provider: Susana Rivers Home Meds and New Rx's Prescriptions: No Action gabapentin 300 mg capsule 300 mg PO BID Qty: 180 3RF methadone 10 mg/5 mL solution 105 mg PO QAM magnesium gluconate 27 mg magnesium (500 mg) tablet 27 mg PO BID Qty: 60 3RF calcitriol 0.5 mcg capsule 0.5 mcg PO BID Qty: 360 3RF Hold Instructions: Resume on 06/15/22. diclofenac sodium 1 % gel 4 g topical QID Qty: 100 6RF Rx Instructions: apply to single knee, ankle, foot; for foot includes sole/toes/top of foot polyethylene glycol 3350 17 gram/dose powder 17 g PO DAILY clonazepam 1 mg tablet 1 mg PO BID Qty: 56 0RF omeprazole 40 mg capsule,delayed release(DR/EC) 40 mg PO DAILY Qty: 90 3RF cyclobenzaprine 10 mg tablet 10 mg PO TID PRN (Reason: muscle spasm) Qty: 30 3RF calcium carbonate [Tums] 200 mg calcium (500 mg) tablet,chewable 2,000 mg PO BID Hold Instructions: Resume on 05/12/23. Please hold your nightly dose tonight and your a.m. dose tomorrow morning. Discharge Instructions Instructions: Plantar Fasciitis (ED), Knee Pain (ED), Plantar Fasciitis Exercises (ED) Referrals: Barrington Arciniega PA [[facility] E[employer]RICAL ENGINEER MEP] - Discharge Data Discharge Physician: Susana Rivers [facility] General Mode of arrival: ambulatory. Date/Time Provider Initiated Documentation: 08/13/23 11:34. Limitations to Documentation: no limitations. Information obtained by: patient. HPI Narrative: 27-year-old male presents for evaluation of left knee pain and left foot pain. Patient states that he was in the [employer] several years ago when he believes that he caused some type of injury to his knee at that time. He has not had waited and it intermittently causes some pain. He states over the last month he has started walking more on a treadmill to try and lose weight and has noticed some increased pain to the medial portion of his left knee. No numbness or tingling. He has also noticed over the last day or 2 that he has some pain at the bottom of his heel. When he steps he does have some increased pain in the knee. No erythema or warmth. No direct trauma. No pain in the popliteal fossa. Related Data Home Medications Medication Instructions Recorded Confirmed magnesium gluconate 27 mg 27 mg PO BID #60 tabs 11/08/22 08/13/23 magnesium (500 mg) tablet calcium carbonate 200 mg calcium 2,000 mg PO BID 02/02/23 08/13/23 (500 mg) chewable tablet (Tums) calcitriol 0.5 mcg capsule 0.5 mcg PO BID #360 caps 04/21/23 08/13/23 diclofenac sodium 1 % topical gel 4 g topical QID #100 grams 04/21/23 08/13/23 methadone 10 mg/5 mL oral solution 105 mg PO QAM 06/12/23 08/13/23 polyethylene glycol 3350 17 17 g PO DAILY 06/12/23 08/13/23 gram/dose oral powder gabapentin 300 mg capsule 300 mg PO BID #180 caps 06/23/23 08/13/23 cyclobenzaprine 10 mg tablet 10 mg PO TID PRN muscle spasm #30 07/04/23 08/13/23 tabs clonazepam 1 mg tablet 1 mg PO BID #56 tabs 07/21/23 08/13/23 omeprazole 40 mg capsule,delayed 40 mg PO DAILY #90 caps 07/21/23 08/13/23 release Previous Rx's Medication Instructions Recorded magnesium gluconate 27 mg 27 mg PO BID #60 tabs 11/08/22 magnesium (500 mg) tablet calcitriol 0.5 mcg capsule 0.5 mcg PO BID #360 caps 04/21/23 diclofenac sodium 1 % topical gel 4 g topical QID #100 grams 04/21/23 gabapentin 300 mg capsule 300 mg PO BID #180 caps 06/23/23 cyclobenzaprine 10 mg tablet 10 mg PO TID PRN muscle spasm #30 07/04/23 tabs clonazepam 1 mg tablet 1 mg PO BID #56 tabs 07/21/23 omeprazole 40 mg capsule,delayed 40 mg PO DAILY #90 caps 07/21/23 release Allergies Allergy/AdvReac Type Severity Reaction Status Date / Time codeine Allergy Intermediate pass out Verified 08/12/23 05:18 Penicillins Allergy Skin Rash Verified 08/12/23 05:18 amoxicillin AdvReac Intermediate Nausea Verified 08/12/23 05:18 dextromethorphan AdvReac Intermediate Other (See Verified 08/12/23 05:18 [From NyQuil] Comment) doxylamine [From NyQuil] AdvReac Intermediate Other (See Verified 08/12/23 05:18 Comment) pseudoephedrine [From NyQuil] AdvReac Intermediate Other (See Verified 08/12/23 05:18 Comment) General Stated Complaint: Orthopedic ADRIANA: 4 Review of Systems Narrative: Remainder of review of systems otherwise negative except for as noted in the HPI x 5. Exam Narrative Exam Narrative: General: non-toxic, no respiratory distress, comfortable HEENT: normocephalic, atraumatic, lids and lashes normal, PERRL, EOMI, anicteric sclera, no conjunctival injection, moist oral mucosa Musculoskeletal: Mild pain palpation left medial knee, no pain popliteal fossa, no erythema or warmth, pain to palpation over plantar fascia left foot, 2+ distal pedal pulses, sensation intact, no metacarpal tenderness, Achilles intact, no pain to palpation over medial or lateral malleolus, otherwise full range of motion of arms and legs, no tenderness to palpation. no clubbing, cyanosis, or edema Neurologic: appropriate for age, strength normal Psych: alert and oriented Skin: no petechiae, no lesions, warm and dry Course Vital Signs Vital signs: Vital Signs Temperature 37.1 C 08/13/23 11:34 Pulse 98 H 08/13/23 11:34 Respiratory Rate 16 08/13/23 11:34 Blood Pressure 137/86 08/13/23 11:34 Pulse Oximetry 95 08/13/23 11:34 Temperature 37.1 C 08/13/23 11:34 Temperature Source Oral 08/13/23 11:34 Pulse 98 H 08/13/23 11:34 Respiratory Rate 16 08/13/23 11:34 Blood Pressure 137/86 08/13/23 11:34 Pulse Oximetry 95 08/13/23 11:34 Oxygen Delivery Method Room Air 08/13/23 11:34 Oxygen Flow Rate 0 08/13/23 11:34 Pain Level 4 08/13/23 11:34 Comment ibuprofen at 10:00am today 08/13/23 11:34 Medical Decision Making 27-year-old male presents for evaluation of left knee and left heel pain. On examination patient does have some mild pain to the left medial knee as well as pain over his plantar fascia. X-ray of left knee is negative for any acute findings. We have discussed that I cannot rule out tendon or ligamentous injury at this time. It is possible that he has some prior damage from when he was in the [employer]. Will apply Eleno bandage for compression and support. I have recommended some exercises for plantar fasciitis and getting more supportive shoes. He will be referred over to orthopedics. There is no signs of fracture or infection at this time. He does understand indications to return. Quality:SDOH Health Related Social Needs: Health related social needs transpo insecurity PFSH All Active Problems (Updated 08/13/23 @ 13:15 by Susana Rivers MD) Knee pain (Acute) Plantar fasciitis of left foot (Acute) Hypokalemia (Acute) Dehydration (Acute) Abdominal pain (Acute) Anxiety about health (Acute) Abdominal pain (Acute) Anemia (Chronic) Encounter for laboratory test (Acute) Tingling (Acute) Chest pain of uncertain etiology (Acute) Hypernatremia (Acute) Cervical radiculopathy (Acute) URI (upper respiratory infection) (Acute) Left-sided Flower's palsy (Acute) Neck pain on left side (Acute) Constipation (Acute) Grief reaction (Chronic) Opiate dependence, continuous (Acute) Cellulitis (Acute) Cholelithiases (Acute) 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 Possible 2' Methadone, Clnzpm (?). Surg eval (+)/No further action. CKD (chronic kidney disease) stage 2, GFR 60-89 ml/min (Acute) GFR 64-65, with Hx FLORESITA and GFR < 45 Complex medical condition (Chronic) Serious electrolyte imbalances, with gynecomastia, possible MEN Dx, CKD and anemia with baseline anxiety and Hx PTSD. History of electrolyte imbalance (Acute) Neck pain on left side (Acute) with shoulder, upper back pain.. torticollis, radiating into left hip/leg Pulmonary nodule 1 cm or greater in diameter (Chronic) Therapeutic opioid induced constipation (Acute) Sphincter of Oddi dysfunction (Chronic) Abnormal CT scan, kidney (Acute) Intrahepatic bile duct dilation (Acute) Common bile duct dilatation (Acute) Abdominal pain (Acute) Iatrogenic hypocalcemia (Acute) Multiple endocrine neoplasia type I (Chronic) Chronic constipation (Chronic) Primary hyperparathyroidism (Chronic) Depression (Chronic) Hypomagnesemia (Chronic) Hypocalcemia (Chronic) Depression (Chronic) Suicidal ideation (Acute) Elevated parathyroid hormone (Acute) Family history of coronary arteriosclerosis (Chronic) Father of [place] at 50, mother had [place] at 42 Severe anxiety with panic (Chronic) Cellulitis (Acute) Medical History Hypokalemia Hypocalcemia Anxiety Depression Hyperlipidemia Family history of multiple endocrine neoplasia, type 1 PTSD (post-traumatic stress disorder) Per pt. states no triggers at this time. Surgical History H/O parathyroidectomy Family History Mother Anxiety Asthma Depression Sister Anxiety Depression Father Cancer lung & stomach Depression Diabetes Hypertension MEN 1 (multiple endocrine neoplasia) Social History Smoking/Tobacco Use Status: Never Smoking risk assessment performed?: Yes Alcohol Intake: never Drug use: Rarely Substance use type: does not use and former substance user Adopted: No Caregiver/Support person: No Foster care: No Household members: none Housing: apartment Number of Children: 0 Communication Needs: None Education Level: high school Do you need help understanding health information?: Never 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 and animals: Yes (Ally) Pets and animals: dog(s) Sexually active: No Do you think of yourself as: straight/heterosexual Current gender identity: male What is your relationship status?: How often do you talk on the phone with friends or family?: twice per week How often do you get together with friends or relatives?: never Do you belong to any clubs or organized social groups?: no Panel score (0-1 are the most socially isolated patients): 0 What type of physical activity do you participate in: walking Duration: 15-30 minutes/day Frequency: 5-6 times per week Maryam/Zoroastrian: Spiritism Special maryam needs: No Seatbelt use: always Helmet use: Yes Helmet use: always Drive 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 hazardous materials 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
== END 2023-08-13 13:26 | disposition home or self-care (01) ==
PROVIDERS: Emergency Provider Emergency Medicine Emergency Medical Services; PCP Family Medicine
DX: M72.2 Plantar fascial fibromatosis (principal); M25.562 Pain in left knee; E78.5 Hyperlipidemia, unspecified
CPT/HCPCS: 73562; 99283

== ENCOUNTER 2023-08-15 11:46 | Emergency (ER) | payer OTHER, SELFPAY ==
[2023-08-15 11:51] VITALS: BP 144/75; PULSE 106; RESP 17; TEMP 37.9; O2SAT 96
[2023-08-15 11:55] VITALS: BP 144/75; PULSE 106; RESP 17; TEMP 37.9; O2SAT 96
--- NOTE | 2023-08-15 12:34 | W.ED.GENAD ---
Discharge Plan Disposition Patient Disposition: Home Condition: Improving Discharge Details Chief Complaint: RespSymp Clinical Impression: Viral illness Primary Care Provider: Brendon Vivar ED Provider: Ajay Kennedy Home Meds and New Rx's Prescriptions: No Action gabapentin 300 mg capsule 300 mg PO BID Qty: 180 3RF methadone 10 mg/5 mL solution 105 mg PO QAM magnesium gluconate 27 mg magnesium (500 mg) tablet 27 mg PO BID Qty: 60 3RF calcitriol 0.5 mcg capsule 0.5 mcg PO BID Qty: 360 3RF Hold Instructions: Resume on 06/15/22. diclofenac sodium 1 % gel 4 g topical QID Qty: 100 6RF Rx Instructions: apply to single knee, ankle, foot; for foot includes sole/toes/top of foot polyethylene glycol 3350 17 gram/dose powder 17 g PO DAILY clonazepam 1 mg tablet 1 mg PO BID Qty: 56 0RF omeprazole 40 mg capsule,delayed release(DR/EC) 40 mg PO DAILY Qty: 90 3RF cyclobenzaprine 10 mg tablet 10 mg PO TID PRN (Reason: muscle spasm) Qty: 30 3RF calcium carbonate [Tums] 200 mg calcium (500 mg) tablet,chewable 2,000 mg PO BID Hold Instructions: Resume on 05/12/23. Please hold your nightly dose tonight and your a.m. dose tomorrow morning. Discharge Instructions Instructions: Viral Syndrome (ED) HPI General Date/Time Provider Initiated Documentation: 08/15/23 12:00. HPI Narrative: 27-year-old male presents with bodyaches fatigue chest congestion. Related Data Home Medications Medication Instructions Recorded Confirmed magnesium gluconate 27 mg 27 mg PO BID #60 tabs 11/08/22 08/15/23 magnesium (500 mg) tablet calcium carbonate 200 mg calcium 2,000 mg PO BID 02/02/23 08/15/23 (500 mg) chewable tablet (Tums) calcitriol 0.5 mcg capsule 0.5 mcg PO BID #360 caps 04/21/23 08/15/23 diclofenac sodium 1 % topical gel 4 g topical QID #100 grams 04/21/23 08/15/23 methadone 10 mg/5 mL oral solution 105 mg PO QAM 06/12/23 08/15/23 polyethylene glycol 3350 17 17 g PO DAILY 06/12/23 08/15/23 gram/dose oral powder gabapentin 300 mg capsule 300 mg PO BID #180 caps 06/23/23 08/15/23 cyclobenzaprine 10 mg tablet 10 mg PO TID PRN muscle spasm #30 07/04/23 08/15/23 tabs clonazepam 1 mg tablet 1 mg PO BID #56 tabs 07/21/23 08/15/23 omeprazole 40 mg capsule,delayed 40 mg PO DAILY #90 caps 07/21/23 08/15/23 release Previous Rx's Medication Instructions Recorded magnesium gluconate 27 mg 27 mg PO BID #60 tabs 11/08/22 magnesium (500 mg) tablet calcitriol 0.5 mcg capsule 0.5 mcg PO BID #360 caps 04/21/23 diclofenac sodium 1 % topical gel 4 g topical QID #100 grams 04/21/23 gabapentin 300 mg capsule 300 mg PO BID #180 caps 06/23/23 cyclobenzaprine 10 mg tablet 10 mg PO TID PRN muscle spasm #30 07/04/23 tabs clonazepam 1 mg tablet 1 mg PO BID #56 tabs 07/21/23 omeprazole 40 mg capsule,delayed 40 mg PO DAILY #90 caps 07/21/23 release Allergies Allergy/AdvReac Type Severity Reaction Status Date / Time codeine Allergy Intermediate pass out Verified 08/15/23 12:00 Penicillins Allergy Skin Rash Verified 08/15/23 12:00 amoxicillin AdvReac Intermediate Nausea Verified 08/15/23 12:00 dextromethorphan AdvReac Intermediate Other (See Verified 08/15/23 12:00 [From NyQuil] Comment) doxylamine [From NyQuil] AdvReac Intermediate Other (See Verified 08/15/23 12:00 Comment) pseudoephedrine [From NyQuil] AdvReac Intermediate Other (See Verified 08/15/23 12:00 Comment) General Stated Complaint: RespSymp ADRIANA: 4 Review of Systems Narrative: Review of Systems Constitutional: Fatigue, body aches Eyes: negative ENT: negative Cardiovascular: negative Respiratory: Congestion Gastrointestinal: negative : negative Musculoskeletal: negative Skin: negative Neurologic: negative Psych: negative Exam Narrative Exam Narrative: Physical Examination General: alert, awake, cooperative, resting comfortably, no acute distress HEENT: normocephalic, atraumatic Neck: supple, trachea midline; full ROM Chest: normal to inspection Respiratory: normal respiratory effort, speaking in full sentences Skin: no lesions, rashes or trauma appreciated Neuro: AAOx3, normal speech, moving all extremities Psych: Appropriate mood and affect Course Vital Signs Vital signs: Vital Signs Temperature 37.9 C H 08/15/23 11:51 Pulse 106 H 08/15/23 11:51 Respiratory Rate 17 08/15/23 11:51 Blood Pressure 144/75 H 08/15/23 11:51 Pulse Oximetry 96 08/15/23 11:51 Temperature 37.9 C H 08/15/23 11:55 Temperature Source Temporal Artery Scan 08/15/23 11:55 Pulse 106 H 08/15/23 11:55 Respiratory Rate 17 08/15/23 11:55 Respiratory Effort Normal 08/15/23 11:59 Respiratory Depth Normal 08/15/23 11:59 Blood Pressure 144/75 H 08/15/23 11:55 Blood Pressure Position Sitting 08/15/23 11:55 Pulse Oximetry 96 08/15/23 11:55 Oxygen Delivery Method Room Air 08/15/23 11:55 Oxygen Flow Rate 0 08/15/23 11:55 Pain Level 4 08/15/23 11:55 Medical Decision Making 27-year-old male presents with body ache fatigue chest congestion. Low-grade fever on arrival, mildly tachycardic otherwise nontoxic. Speaking full sentences no respiratory distress. Normoxic. High clinical suspicion for viral syndrome. Negative for flu and COVID on [id number] swab. Low suspicion for pneumonia bacteremia or other serious bacterial infections. Trial of dexamethasone and Tylenol. Close reassessment likely home with close follow-up Quality:SDOH Health Related Social Needs: Health related social needs transpo insecurity PFSH All Active Problems (Updated 08/15/23 @ 13:31 by Ajay Kennedy MD) Viral illness (Acute) Knee pain (Acute) Plantar fasciitis of left foot (Acute) Hypokalemia (Acute) Dehydration (Acute) Abdominal pain (Acute) Anxiety about health (Acute) Abdominal pain (Acute) Anemia (Chronic) Encounter for laboratory test (Acute) Tingling (Acute) Hypernatremia (Acute) Cervical radiculopathy (Acute) URI (upper respiratory infection) (Acute) Left-sided Flower's palsy (Acute) Neck pain on left side (Acute) Constipation (Acute) Grief reaction (Chronic) Opiate dependence, continuous (Acute) Cellulitis (Acute) Cholelithiases (Acute) 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 Possible 2' Methadone, Clnzpm (?). Surg eval (+)/No further action. CKD (chronic kidney disease) stage 2, GFR 60-89 ml/min (Acute) GFR 64-65, with Hx FLORESITA and GFR < 45 Complex medical condition (Chronic) Serious electrolyte imbalances, with gynecomastia, possible MEN Dx, CKD and anemia with baseline anxiety and Hx PTSD. History of electrolyte imbalance (Acute) Neck pain on left side (Acute) with shoulder, upper back pain.. torticollis, radiating into left hip/leg Pulmonary nodule 1 cm or greater in diameter (Chronic) Therapeutic opioid induced constipation (Acute) Sphincter of Oddi dysfunction (Chronic) Abnormal CT scan, kidney (Acute) Intrahepatic bile duct dilation (Acute) Common bile duct dilatation (Acute) Abdominal pain (Acute) Iatrogenic hypocalcemia (Acute) Multiple endocrine neoplasia type I (Chronic) Chronic constipation (Chronic) Primary hyperparathyroidism (Chronic) Depression (Chronic) Hypomagnesemia (Chronic) Hypocalcemia (Chronic) Depression (Chronic) Suicidal ideation (Acute) Elevated parathyroid hormone (Acute) Family history of coronary arteriosclerosis (Chronic) Father of PR at 50, mother had PR at 42 Severe anxiety with panic (Chronic) Cellulitis (Acute) Medical History Hypokalemia Hypocalcemia Anxiety Depression Hyperlipidemia Family history of multiple endocrine neoplasia, type 1 PTSD (post-traumatic stress disorder) Per pt. states no triggers at this time. Surgical History H/O parathyroidectomy Family History Mother Anxiety Asthma Depression Sister Anxiety Depression Father Cancer lung & stomach Depression Diabetes Hypertension MEN 1 (multiple endocrine neoplasia) Social History Smoking/Tobacco Use Status: Never Smoking risk assessment performed?: Yes Alcohol Intake: never Drug use: Rarely Substance use type: does not use and former substance user Adopted: No Caregiver/Support person: No Foster care: No Household members: none Housing: apartment Number of Children: 0 Communication Needs: None Education Level: high school Do you need help understanding health information?: Never 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 and animals: Yes (Ally) Pets and animals: dog(s) Sexually active: No Do you think of yourself as: straight/heterosexual Current gender identity: male What is your relationship status?: How often do you talk on the phone with friends or family?: twice per week How often do you get together with friends or relatives?: never Do you belong to any clubs or organized social groups?: no Panel score (0-1 are the most socially isolated patients): 0 What type of physical activity do you participate in: walking Duration: 15-30 minutes/day Frequency: 5-6 times per week Maryam/Judaism: Quaker Special maryam needs: No Seatbelt use: always Helmet use: Yes Helmet use: always Drive 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 driver's license examiner: No Do you feel safe at home: Yes Do you feel safe in your relationship?: Yes Additional Social history: on methadone
[2023-08-15] MEDS: Acetaminophen 325 MG TAB 650 MG PO (12:46)
[2023-08-15] MEDS: Dexamethasone 10 MG/ML VIAL PO (12:46)
== END 2023-08-15 15:59 | disposition home or self-care (01) ==
PROVIDERS: Emergency Provider Emergency Medicine; PCP Family Medicine
DX: R50.9 Fever, unspecified (principal); R09.89 Other specified symptoms and signs involving the circulatory and respiratory systems; R53.83 Other fatigue; R52 Pain, unspecified
CPT/HCPCS: 99282; 99283; J1100

== ENCOUNTER 2023-08-15 15:41 | Emergency (ER) | payer OTHER, SELFPAY ==
--- NOTE | 2023-08-15 | DI.US_ITS ---
Exam(s) US SCROTUM EXAM: US SCROTUM CLINICAL HISTORY: testicular pain. TECHNIQUE: Scrotal ultrasound performed using grayscale, color-flow and spectral Doppler analysis. COMPARISON: No exams were available for comparison FINDINGS: RIGHT TESTICLE: 3.3 x 1.5 x 2.4 cm Echogenicity: Normal. Contour: Smooth. Mass: None seen. Microlithiasis: None. Hydrocele: None. Varicocele: None. Hernia: No peristalsing bowel loop identified. Epididymis: 2 millimeter spermatocele epididymal head. Scrotum: Normal. LEFT TESTICLE: 3.0 x 1.4 x 2.0 cm cm Echogenicity: Normal. Contour: Smooth. Mass: Smoothly marginated hypoechoic hypervascular mass measuring 5 x 3 x 4 millimeters. The finding s may represent a intratesticular AV malformation versus focal orchitis. Small testicular malignancy can not be excluded. Microlithiasis: None. Hydrocele: None. Varicocele: None. Hernia: No peristalsing bowel loop identified. Epididymis: Normal. Scrotum: Normal. DOPPLER: Color: Symmetric and uniform, no hyperemia. Duplex: Bilateral testicular arterial waveforms visualized. IMPRESSION: 5 millimeter hypervascular lesion within the left testicle may represent an intertesticular AV malfor mation, focal orchitis or small mass. Findings were called to Anna Ocampo, emergency department provider. DATA REPOSITORY:
[2023-08-15 15:45] VITALS: BP 140/89; PULSE 128; RESP 20; TEMP 36.5; O2SAT 96
--- NOTE | 2023-08-15 16:43 | W.ED.GENAD ---
Discharge Plan Disposition Patient Disposition: Home Condition: Stable Discharge Details Clinical Impression: Pain in scrotum Primary Care Provider: Brendon Vivar ED Provider: Anna Ocampo Home Meds and New Rx's Prescriptions: Continued gabapentin 300 mg capsule 300 mg PO BID Qty: 180 3RF methadone 10 mg/5 mL solution 105 mg PO QAM magnesium gluconate 27 mg magnesium (500 mg) tablet 27 mg PO BID Qty: 60 3RF calcitriol 0.5 mcg capsule 0.5 mcg PO BID Qty: 360 3RF Hold Instructions: Resume on 06/15/22. diclofenac sodium 1 % gel 4 g topical QID Qty: 100 6RF Rx Instructions: apply to single knee, ankle, foot; for foot includes sole/toes/top of foot polyethylene glycol 3350 17 gram/dose powder 17 g PO DAILY clonazepam 1 mg tablet 1 mg PO BID Qty: 56 0RF omeprazole 40 mg capsule,delayed release(DR/EC) 40 mg PO DAILY Qty: 90 3RF cyclobenzaprine 10 mg tablet 10 mg PO TID PRN (Reason: muscle spasm) Qty: 30 3RF calcium carbonate [Tums] 200 mg calcium (500 mg) tablet,chewable 2,000 mg PO BID Hold Instructions: Resume on 05/12/23. Please hold your nightly dose tonight and your a.m. dose tomorrow morning. Discharge Instructions Instructions: Scrotal Pain (ED) Additional Instructions: Your ultrasound showed no testicular torsion but incidental finding of a 5 x 4 x 3 mm mass was found. Is unclear if this is causing your symptoms as it is small but you should have this followed up with urology. You can take [id number] acetaminophen and ibuprofen as directed for your pain and a referral has been placed with Dr. Casper please call his office to schedule Referrals: Lester Casper MD [ [facility] STAFF PHYSICIAN] - Discharge Data Discharge Date/Time-TO BE ENTERED AT DEPARTURE: 08/15/23 16:58 HPI General Date/Time Provider Initiated Documentation: 08/15/23 15:44. Limitations to Documentation: no limitations. Information obtained by: patient. HPI Narrative: Patient presents for sudden onset of testicular pain that occurred after leaving here earlier today from an unrelated visit. He denies any trauma to the area. Said no nausea no vomiting no fevers no discharge or lesions. Related Data Home Medications Medication Instructions Recorded Confirmed magnesium gluconate 27 mg 27 mg PO BID #60 tabs 11/08/22 08/15/23 magnesium (500 mg) tablet calcium carbonate 200 mg calcium 2,000 mg PO BID 02/02/23 08/15/23 (500 mg) chewable tablet (Tums) calcitriol 0.5 mcg capsule 0.5 mcg PO BID #360 caps 04/21/23 08/15/23 diclofenac sodium 1 % topical gel 4 g topical QID #100 grams 04/21/23 08/15/23 methadone 10 mg/5 mL oral solution 105 mg PO QAM 06/12/23 08/15/23 polyethylene glycol 3350 17 17 g PO DAILY 06/12/23 08/15/23 gram/dose oral powder gabapentin 300 mg capsule 300 mg PO BID #180 caps 06/23/23 08/15/23 cyclobenzaprine 10 mg tablet 10 mg PO TID PRN muscle spasm #30 07/04/23 08/15/23 tabs clonazepam 1 mg tablet 1 mg PO BID #56 tabs 07/21/23 08/15/23 omeprazole 40 mg capsule,delayed 40 mg PO DAILY #90 caps 07/21/23 08/15/23 release Previous Rx's Medication Instructions Recorded magnesium gluconate 27 mg 27 mg PO BID #60 tabs 11/08/22 magnesium (500 mg) tablet calcitriol 0.5 mcg capsule 0.5 mcg PO BID #360 caps 04/21/23 diclofenac sodium 1 % topical gel 4 g topical QID #100 grams 04/21/23 gabapentin 300 mg capsule 300 mg PO BID #180 caps 06/23/23 cyclobenzaprine 10 mg tablet 10 mg PO TID PRN muscle spasm #30 07/04/23 tabs clonazepam 1 mg tablet 1 mg PO BID #56 tabs 07/21/23 omeprazole 40 mg capsule,delayed 40 mg PO DAILY #90 caps 07/21/23 release Allergies Allergy/AdvReac Type Severity Reaction Status Date / Time codeine Allergy Intermediate pass out Verified 08/15/23 15:48 Penicillins Allergy Skin Rash Verified 08/15/23 15:48 amoxicillin AdvReac Intermediate Nausea Verified 08/15/23 15:48 dextromethorphan AdvReac Intermediate Other (See Verified 08/15/23 15:48 [From NyQuil] Comment) doxylamine [From NyQuil] AdvReac Intermediate Other (See Verified 08/15/23 15:48 Comment) pseudoephedrine [From NyQuil] AdvReac Intermediate Other (See Verified 08/15/23 15:48 Comment) General Stated Complaint: Male Reproductive Problem ADRIANA: 2 Review of Systems All systems reviewed & are unremarkable except as noted in HPI and below Exam Narrative Exam Narrative: Obese white male in no acute distress older appearing than stated age chronically ill-appearing skin [place] warm dry well-perfused vital signs are stable head is atraumatic oral mucosa moist respirations even and unlabored moves all extremities no edema skin with no rashes or lesions. Neurologic awake alert oriented no focal deficits Psychiatric blunted affect normal mood Course Vital Signs Vital signs: Vital Signs Temperature 36.5 C 08/15/23 15:45 Pulse 128 H 08/15/23 15:45 Respiratory Rate 20 08/15/23 15:45 Blood Pressure 140/89 08/15/23 15:45 Pulse Oximetry 96 08/15/23 15:45 Temperature 36.5 C 08/15/23 15:45 Temperature Source Skin 08/15/23 15:45 Pulse 128 H 08/15/23 15:45 Respiratory Rate 20 08/15/23 15:45 Respiratory Effort Normal, Non-Labored 08/15/23 15:59 Blood Pressure 140/89 08/15/23 15:45 Blood Pressure Position Sitting 08/15/23 15:45 Pulse Oximetry 96 08/15/23 15:45 Oxygen Delivery Method Room Air 08/15/23 15:45 Oxygen Flow Rate 0 08/15/23 15:45 Pain Level 8 08/15/23 15:45 Medical Decision Making Patient presents with symptoms concerning for testicular torsion will place scrotal ultrasound. Ultrasound reviewed with radiologist no evidence of testicular torsion but incidental finding of a 5 x 4 x 3 mm vascular mass concerning for AV malformation versus malignancy. Patient will be referred to urology for further evaluation Medical Records Medical records reviewed: Yes I reviewed the patient's medical records. Imaging Data Radiologic Study: Imaging: Ultrasound Radiologist's impression: exam(s) US SCROTUM EXAM: US SCROTUM CLINICAL HISTORY: testicular pain. TECHNIQUE: Scrotal ultrasound performed using grayscale, color-flow and spectral Doppler analysis. COMPARISON: No exams were available for comparison FINDINGS: RIGHT TESTICLE: 3.3 x 1.5 x 2.4 cm Echogenicity: Normal. Contour: Smooth. Mass: None seen. Microlithiasis: None. Hydrocele: None. Varicocele: None. Hernia: No peristalsing bowel loop identified. Epididymis: 2 millimeter spermatocele epididymal head. Scrotum: Normal. LEFT TESTICLE: 3.0 x 1.4 x 2.0 cm cm Echogenicity: Normal. Contour: Smooth. Mass: Smoothly marginated hypoechoic hypervascular mass measuring 5 x 3 x 4 millimeters. The findings may represent a intratesticular AV malformation versus focal orchitis. Small testicular malignancy can not be excluded. Microlithiasis: None. Hydrocele: None. Varicocele: None. Hernia: No peristalsing bowel loop identified. Epididymis: Normal. Scrotum: Normal. DOPPLER: Color: Symmetric and uniform, no hyperemia. Duplex: Bilateral testicular arterial waveforms visualized. IMPRESSION: 5 millimeter hypervascular lesion within the left testicle may represent an intertesticular AV malformation, focal orchitis or small mass. Findings were called to Anna Ocampo, emergency department provider. Quality:SDOH Health Related Social Needs: Health related social needs transpo insecurity PFSH All Active Problems (Updated 08/15/23 @ 16:43 by Anna Ocampo, [employer]) Pain in scrotum (Acute) Viral illness (Acute) Knee pain (Acute) Plantar fasciitis of left foot (Acute) Hypokalemia (Acute) Dehydration (Acute) Abdominal pain (Acute) Anxiety about health (Acute) Abdominal pain (Acute) Anemia (Chronic) Encounter for laboratory test (Acute) Tingling (Acute) Hypernatremia (Acute) Cervical radiculopathy (Acute) URI (upper respiratory infection) (Acute) Left-sided Flower's palsy (Acute) Neck pain on left side (Acute) Constipation (Acute) Grief reaction (Chronic) Opiate dependence, continuous (Acute) Cellulitis (Acute) Cholelithiases (Acute) 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 Possible 2' Methadone, Clnzpm (?). Surg eval (+)/No further action. CKD (chronic kidney disease) stage 2, GFR 60-89 ml/min (Acute) GFR 64-65, with Hx FLORESITA and GFR < 45 Complex medical condition (Chronic) Serious electrolyte imbalances, with gynecomastia, possible MEN Dx, CKD and anemia with baseline anxiety and Hx PTSD. History of electrolyte imbalance (Acute) Neck pain on left side (Acute) with shoulder, upper back pain.. torticollis, radiating into left hip/leg Pulmonary nodule 1 cm or greater in diameter (Chronic) Therapeutic opioid induced constipation (Acute) Sphincter of Oddi dysfunction (Chronic) Abnormal CT scan, kidney (Acute) Intrahepatic bile duct dilation (Acute) Common bile duct dilatation (Acute) Abdominal pain (Acute) Iatrogenic hypocalcemia (Acute) Multiple endocrine neoplasia type I (Chronic) Chronic constipation (Chronic) Primary hyperparathyroidism (Chronic) Depression (Chronic) Hypomagnesemia (Chronic) Hypocalcemia (Chronic) Depression (Chronic) Suicidal ideation (Acute) Elevated parathyroid hormone (Acute) Family history of coronary arteriosclerosis (Chronic) Father of NC at 50, mother had NC at 42 Severe anxiety with panic (Chronic) Cellulitis (Acute) Medical History Hypokalemia Hypocalcemia Anxiety Depression Hyperlipidemia Family history of multiple endocrine neoplasia, type 1 PTSD (post-traumatic stress disorder) Per pt. states no triggers at this time. Surgical History H/O parathyroidectomy Family History Mother Anxiety Asthma Depression Sister Anxiety Depression Father Cancer lung & stomach Depression Diabetes Hypertension MEN 1 (multiple endocrine neoplasia) Social History Smoking/Tobacco Use Status: Never Smoking risk assessment performed?: Yes Alcohol Intake: never Drug use: Rarely Substance use type: does not use and former substance user Adopted: No Caregiver/Support person: No Foster care: No Household members: none Housing: apartment Number of Children: 0 Communication Needs: None Education Level: high school Do you need help understanding health information?: Never 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 and animals: Yes (Ally) Pets and animals: dog(s) Sexually active: No Do you think of yourself as: straight/heterosexual Current gender identity: male What is your relationship status?: How often do you talk on the phone with friends or family?: twice per week How often do you get together with friends or relatives?: never Do you belong to any clubs or organized social groups?: no Panel score (0-1 are the most socially isolated patients): 0 What type of physical activity do you participate in: walking Duration: 15-30 minutes/day Frequency: 5-6 times per week Maryam/Pentecostal: Episcopalian Special maryam needs: No Seatbelt use: always Helmet use: Yes Helmet use: always Drive 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 courtesy car 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
--- NOTE | 2023-08-15 16:54 | NUR.NOTE ---
Referral faxed to [facility]rology for scrotal mass, incidental finding, appt at their discretion. Nursing Note:
== END 2023-08-15 16:58 | disposition home or self-care (01) ==
PROVIDERS: Emergency Provider Nurse Practitioner Acute Care; PCP Family Medicine
DX: N50.82 Scrotal pain (principal); D40.12 Neoplasm of uncertain behavior of left testis
CPT/HCPCS: 99283; 76870

== ENCOUNTER 2023-08-18 08:12 | Outpatient (CLI) | payer MEDICAID, SELFPAY ==
--- NOTE | 2023-08-18 08:00 | RT.EKG_ITS ---
APPROVED REPORT Exam: Resting ECG Reason for Exam: Tachycardia Patient Location: O HR:103 bpm ECG Measurements Heart Rate 103 AXIS KS 162 P 51 QRSd 92 QRS 61 QT 355 T 27 QTc 465 Conclusion Sinus tachycardia...rate> 99 Otherwise normal ECG
== END 2023-08-18 08:13 | disposition home or self-care (01) ==
LOC: DI.KIM 08:13
PROVIDERS: PCP Family Medicine; Visit Provider Family Medicine
DX: R00.0 Tachycardia, unspecified (principal)
CPT/HCPCS: 93010

== ENCOUNTER 2023-08-18 08:45 | Emergency (ER) | payer OTHER, SELFPAY ==
[2023-08-18] VITALS (52 sets, daily range): BP systolic 106–159; BP diastolic 63–81; PULSE 60–105; RESP 8–22; TEMP 36.8; O2SAT 93–99
--- NOTE | 2023-08-18 09:00 | RT.EKG_ITS ---
APPROVED REPORT Exam: Resting ECG Reason for Exam: palpitations Patient Location: E HR:83 bpm ECG Measurements Heart Rate 83 AXIS MI 178 P 30 QRSd 96 QRS 48 QT 404 T 32 QTc 475 Conclusion Sinus rhythm...normal P axis, V-rate 60- 99 Sinus rhythm. Decreased heart rate when compared to prior. WD
--- NOTE | 2023-08-18 09:09 | ED.GENADUL_ITS ---
Discharge Plan Disposition Patient Disposition: Home Discharge Details Clinical Impression: Anxiety, Hypocalcemia Primary Care Provider: Brendon Vivar ED Provider: Saranya Estrada Home Meds and New Rx's Prescriptions: No Action gabapentin 300 mg capsule 300 mg PO BID Qty: 180 3RF cyclobenzaprine 10 mg tablet 10 mg PO TID PRN (Reason: muscle spasm) Qty: 30 3RF clonazepam 1 mg tablet 1 mg PO BID Qty: 56 0RF methadone 10 mg/5 mL solution 105 mg PO QAM magnesium gluconate 27 mg magnesium (500 mg) tablet 27 mg PO BID Qty: 60 3RF calcitriol 0.5 mcg capsule 0.5 mcg PO BID Qty: 360 3RF Hold Instructions: Resume on 06/15/22. diclofenac sodium 1 % gel 4 g topical QID Qty: 100 6RF Rx Instructions: apply to single knee, ankle, foot; for foot includes sole/toes/top of foot polyethylene glycol 3350 17 gram/dose powder 17 g PO DAILY omeprazole 40 mg capsule,delayed release(DR/EC) 40 mg PO DAILY Qty: 90 3RF calcium carbonate [Tums] 200 mg calcium (500 mg) tablet,chewable 2,000 mg PO BID Hold Instructions: Resume on 05/12/23. Please hold your nightly dose tonight and your a.m. dose tomorrow morning. Discharge Instructions Additional Instructions: Please call your primary care provider's office first thing in the morning to schedule follow-up appointment for rechecking of calcium. They may wish to do an outpatient lab draw and ED follow-up separately. I encourage you to increase your dosing of Tums back to your original dose. I also encourage you to take an [id number] magnesium supplement. Please note that this may cause some diarrhea, so start dosing low. Return to emergency care if you develop new numbness of the hands or feet, muscle cramps, difficulty breathing, seizures, or if you are very worried and need to be rechecked again immediately Referrals: Brendon Vivar DO [Primary Care Provider] - HPI General Date/Time Provider Initiated Documentation: 08/18/23 08:46 . HPI Narrative: Pedro Pablo is a 27-year-old male with history of parathyroid neoplasm with parathyroid removal, iatrogenic hypocalcemia, anxiety, and CKD who presents to the emergency department today for evaluation of concern for hypocalcemia. He reports that he ran out of his clonazepam which he takes twice daily on Friday. On Friday afternoon (2 days ago) he developed flushing, lightheadedness, tingling around his mouth and on his fingers, palpitations, and shortness of breath with upper abdominal discomfort. He reports that the symptoms are similar to when he has his anxiety. He was seen by his PCP this morning, says he was advised to come to the emergency department rather than have outpatient labs performed (refill of clonazepam will be filled by pharmacy this afternoon according to patient). He denies recent fevers over 100 degrees, vision changes, episodes of passing out, congestion, cough, sore throat, n ausea/vomiting, change in p.o. intake, change in bowel or bladder function, skin changes. He says he has been taking his levothyroxine as prescribed. Related Data Home Medications Medication Instructions Recorded Confirmed magnesium gluconate 27 mg 27 mg PO BID #60 tabs 11/08/22 08/18/23 magnesium (500 mg) tablet calcium carbonate 200 mg calcium 2,000 mg PO BID 02/02/23 08/18/23 (500 mg) chewable tablet (Tums) calcitriol 0.5 mcg capsule 0.5 mcg PO BID #360 caps 04/21/23 08/18/23 diclofenac sodium 1 % topical gel 4 g topical QID #100 grams 04/21/23 08/18/23 methadone 10 mg/5 mL oral solution 105 mg PO QAM 06/12/23 08/18/23 polyethylene glycol 3350 17 17 g PO DAILY 06/12/23 08/18/23 gram/dose oral powder gabapentin 300 mg capsule 300 mg PO BID #180 caps 06/23/23 08/18/23 omeprazole 40 mg capsule,delayed 40 mg PO DAILY #90 caps 07/21/23 08/18/23 release clonazepam 1 mg tablet 1 mg PO BID #56 tabs 08/18/23 08/18/23 cyclobenzaprine 10 mg tablet 10 mg PO TID PRN muscle spasm #30 08/18/23 08/18/23 tabs Previous Rx's Medication Instructions Recorded magnesium gluconate 27 mg 27 mg PO BID #60 tabs 11/08/22 magnesium (500 mg) tablet calcitriol 0.5 mcg capsule 0.5 mcg PO BID #360 caps 04/21/23 diclofenac sodium 1 % topical gel 4 g topical QID #100 grams 04/21/23 gabapentin 300 mg capsule 300 mg PO BID #180 caps 06/23/23 omeprazole 40 mg capsule,delayed 40 mg PO DAILY #90 caps 07/21/23 release clonazepam 1 mg tablet 1 mg PO BID #56 tabs 08/18/23 cyclobenzaprine 10 mg tablet 10 mg PO TID PRN muscle spasm #30 08/18/23 tabs Allergies Allergy/AdvReac Type Severity Reaction Status Date / Time codeine Allergy Intermediate pass out Verified 08/18/23 10:14 Penicillins Allergy Skin Rash Verified 08/18/23 10:14 amoxicillin AdvReac Intermediate Nausea Verified 08/18/23 10:14 dextromethorphan AdvReac Intermediate Other (See Verified 08/18/23 10:14 [From NyQuil] Comment) doxylamine [From NyQuil] AdvReac Intermediate Other (See Verified 08/18/23 10:14 Comment) pseudoephedrine [From NyQuil] AdvReac Intermediate Other (See Verified 08/18/23 10:14 Comment) General Stated Complaint: GenMedical ADRIANA: 3 Review of Systems Narrative: see HPI Exam Const General: cooperative, healthy appearing, comfortable, no acute distress and anxious Nutritional Appearance: average body habitus HENMT Head: normal to inspection Ears: hearing grossly normal bilaterally General nose exam: external nose normal Face and sinus: normal facial exam Mouth: oral mucosae normal Resp Effort & Inspection: normal respiratory effort and able to speak in complete sentences Auscultation: clear to auscultation bilaterally Cardio Rate: regular rate Rhythm: regular rhythm GI Inspection: normal to inspection Palpation: soft Auscultation: normal bowel sounds Skin General skin exam: no rashes or lesions noted Neuro General: patient alert, patient awake, patient oriented x3 and no focal motor deficits Cognition: normal cognition Speech: speech normal Gait: normal gait Motor: muscle tone normal throughout and strength 5/5 throughout DTR's: Rt Patellar: 3+ and Lt Patellar: 3+ Course Vital Signs Vital signs: Vital Signs Temperature 36.8 C 08/18/23 08:48 Pulse 105 H 08/18/23 08:48 Respiratory Rate 17 08/18/23 08:48 Blood Pressure 159/81 H 08/18/23 08:48 Pulse Oximetry 97 08/18/23 08:48 Temperature 36.8 C 08/18/23 09:08 Temperature Source Oral 08/18/23 09:08 Pulse 105 H 08/18/23 09:08 Respiratory Rate 17 08/18/23 09:08 Respiratory Effort Normal, Non-Labored 08/18/23 08:58 Respiratory Depth Normal 08/18/23 08:58 Respiratory Pattern Normal 08/18/23 08:58 Blood Pressure 159/81 H 08/18/23 09:08 Blood Pressure Position Sitting 08/18/23 09:08 Pulse Oximetry 97 08/18/23 09:08 Oxygen Delivery Method Room Air 08/18/23 09:08 Oxygen Flow Rate 0 08/18/23 09:08 Medical Decision Making Pedro Pablo is a 27-year-old male with history of parathyroid neoplasm with pa rathyroid removal, iatrogenic hypocalcemia, anxiety, and CKD who presents to the emergency department today for evaluation of concern for hypocalcemia. He reports that he ran out of his clonazepam which he takes twice daily on Friday. On Friday afternoon (2 days ago) he developed flushing, lightheadedness, tingling around his mouth and on his fingers, palpitations, and shortness of breath with upper abdominal discomfort. He reports that the symptoms are similar to when he has his anxiety. He was seen by his PCP this morning, says he was advised to come to the emergency department rather than have outpatient labs performed (refill of clonazepam will be filled by pharmacy this afternoon according to patient). He denies recent fevers over 100 degrees, vision changes, episodes of passing out, congestion, cough, sore throat, nausea/vomiting, change in p.o. intake, change in bowel or bladder function, skin changes. He says he has been taking his levothyroxine as prescribed. Physical exam very reassuring. Patient does appear anxious. Easy work of breathing, lung sounds clear bilaterally. Normal heart sounds. Abdomen soft, nondistended, nontender to palpation with normoactive bowel sounds. Brisk patellar reflexes bilaterally. 5 out of 5 muscle strength upper and lower extremities. Normal gait. MMM. DDx includes but is not limited to palpitations, anxiety, electrolyte imbalance, dehydration. I independently interpreted the following tests: EKG reassuring, normal sinus rhythm rate 83, no changes consistent with acute ischemia. Normal NV and QT intervals. CBC reassuring. BMP notable for calcium 7.5, decreased from 8.6 on 08/12/2023. Mag today was 1.8, 1.7 previously. While in the emergency department Pedro Pablo received his prescribed clonazepam. He reports full improvement in symptoms such as shortness of breath/palpitations, nausea, and flushing. He does report some persistent tingling around his mouth. 1 g calcium gluconate given IV. Workup today consistent with hypocalcemia, likely due to hypoparathyroid. Pedro Pablo reports that he did recently decrease his Tums dosage from 2 chews BID to 1 chew BID after his calcium was found to have be elevated at 10.5. Reviewed discharge instructions with patient, recommend increasing his dose back to 2 chewables of calcium daily and follow-up with PCP for recheck of calcium. Recommend some magnesium supplementation as patient does have a history of hypomagnesemia which may contribute to hypocalcemia. He is agreeable with plan of care Quality:SDOH Health Related Social Needs: Health related social needs transpo insecurity [facility] All Active Problems (Updated 08/18/23 @ 11:48 by Saranya Avila) Hypocalcemia (Acute) Anxiety (Chronic) Pain in scrotum (Acute) Viral illness (Acute) Knee pain (Acute) Plantar fasciitis of left foot (Acute) Hypokalemia (Acute) Dehydration (Acute) Abdominal pain (Acute) Anxiety about health (Acute) Abdominal pain (Acute) Anemia (Chronic) Hypernatremia (Acute) Cervical radiculopathy (Acute) URI (upper respiratory infection) (Acute) Left-sided Flower's palsy (Acute) Neck pain on left side (Acute) Constipation (Acute) Grief reaction (Chronic) Opiate dependence, continuous (Acute) Cellulitis (Acute) Cholelithiases (Acute) 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 Left arm numbness (Acute) Gynecomastia, male (Acute) b/l, per CT (Jul 2022).. Possible 2' Methadone, Clnzpm (?). Surg eval (+)/No further action. CKD (chronic kidney disease) stage 2, GFR 60-89 ml/min (Acute) GFR 64-65, with Hx FLORESITA and GFR < 45 Complex medical condition (Chronic) Serious electrolyte imbalances, with gynecomastia, possible MEN Dx, CKD and anemia with baseline anxiety and Hx PTSD. History of electrolyte imbalance (Acute) Neck pain on left side (Acute) with shoulder, upper back pain.. torticollis, radiating into left hip/leg Pulmonary nodule 1 cm or greater in diameter (Chronic) Therapeutic opioid induced constipation (Acute) Sphincter of Oddi dysfunction (Chronic) Abnormal CT scan, kidney (Acute) Intrahepatic bile duct dilation (Acute) Common bile duct dilatation (Acute) Abdominal pain (Acute) Iatrogenic hypocalcemia (Acute) Multiple endocrine neoplasia type I (Chronic) Chronic constipation (Chronic) Primary hyperparathyroidism (Chronic) Depression (Chronic) Hypomagnesemia (Chronic) Hypocalcemia (Chronic) Depression (Chronic) Suicidal ideation (Acute) Elevated parathyroid hormone (Acute) Family history of coronary arteriosclerosis (Chronic) Father of AR at 50, mother had AR at 42 Severe anxiety with panic (Chronic) Cellulitis (Acute) Medical History Hypokalemia Hypocalcemia Anxiety Depression Hyperlipidemia Family history of multiple endocrine neoplasia, type 1 PTSD (post-traumatic stress disorder) Per pt. states no triggers at this time. Surgical History H/O parathyroidectomy Family History Mother Anxiety Asthma Depression Sister Anxiety Depression Father Cancer lung & stomach Depression Diabetes Hypertension MEN 1 (multiple endocrine neoplasia) Social History Smoking/Tobacco Use Status: Never Smoking risk assessment performed?: Yes Alcohol Intake: never Drug use: Rarely Substance use type: does not use and former substance user Adopted: No Caregiver/Support person: No Foster care: No Household members: none Housing: apartment Number of Children: 0 Communication Needs: None Education Level: high school Do you need help understanding health information?: Never 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 and animals: Yes (Ally) Pets and animals: dog(s) Sexually active: No Do you think of yourself as: straight/heterosexual Current gender identity: male What is your relationship status?: How often do you talk on the phone with friends or family?: twice per week How often do you get together with friends or relatives?: never Do you belong to any clubs or organized social groups?: no Panel score (0-1 are the most socially isolated patients): 0 What type of physical activity do you participate in: walking Duration: 15-30 minutes/day Frequency: 5-6 times per week Maryam/Anglican: Voodoo Special maryam needs: No Seatbelt use: always Helmet use: Yes Helmet use: always Drive 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
[2023-08-18 09:52] LABS: HCT 34.1 % (40.0-50.0); HGB 11.5 g/dL (13.5-17.5); MCH 30.7 pg (27.0-33.0); MCHC 33.7 % (32.0-36.0); MCV 91 fL (80-95); MPV 10.2 fL (8.0-11.0); Platelet Count 260 10^3/uL (130-400); RBC 3.75 10^6/uL (4.36-5.78); RDW 12.3 % (11.8-14.1); RDW-SD 40.5 fL; WBC 7.91 10^3/uL (4.4-10.8)
[2023-08-18] MEDS: clonazePAM 1 MG TAB PO (09:52)
[2023-08-18 10:23] LABS: Anion Gap 8.5 mmol/L (3-11); BUN 17 mg/dL (7-18); CO2 30.5 mmol/L (21.0-32.0); CREATININE 1.3 mg/dL (0.70-1.30); Calcium 7.5 mg/dL (8.5-10.1); Chloride 100 mmol/L (98-107); Estimated GFR 76.26 (mL/min/1.73m2); Glucose 108 mg/dL (74-106); Sodium 139 mmol/L (136-145); TSH (W/Ref FT4) 3.28 uIU/mL (0.36-3.74)
[2023-08-18] MEDS: CALCIUM GLUCONATE in NaCl 1 GM/50 ML BAG IVPB (11:26)
[2023-08-18 12:05] LABS: Magnesium 1.8 mg/dL (1.8-2.4)
== END 2023-08-18 12:34 | disposition home or self-care (01) ==
PROVIDERS: Emergency Provider Nurse Practitioner Family; PCP Family Medicine
DX: F41.9 Anxiety disorder, unspecified (principal); E83.51 Hypocalcemia
CPT/HCPCS: 80048; 85027; 93005; 96365; 99284; 83735; 84443; 93010; J0613

== ENCOUNTER 2023-08-28 13:44 | Emergency (ER) | payer OTHER, SELFPAY ==
[2023-08-28] VITALS (9 sets, daily range): BP systolic 128; BP diastolic 80; PULSE 82–125; RESP 9–18; TEMP 37.3; O2SAT 91–96
--- NOTE | 2023-08-28 14:00 | RT.EKG_ITS ---
APPROVED REPORT Exam: Resting ECG Reason for Exam: tachycardia Patient Location: E HR:111 bpm ECG Measurements Heart Rate 111 AXIS KS 176 P 39 QRSd 90 QRS 62 QT 342 T 37 QTc 465 Conclusion Sinus tachycardia...rate> 99 Physician: no stemi, intervals stable
[2023-08-28 14:51] LABS: Abs Immature Grans 0.02 10^3/uL (0.0-0.06); Absolute Basophil Count 0.03 10^3/uL (0.0-0.2); Absolute Eosinophil Count 0.18 10^3/uL (0.0-0.7); Absolute Lymphocyte Count 2.06 10^3/uL (1.2-3.4); Absolute Monocyte Count 0.79 10^3/uL (0.1-0.8); Absolute Neutrophil Count 4.63 10^3/uL (1.2-6.7); Basophils % 0.4; Eosinophils % 2.3; HCT 34.2 % (40.0-50.0); HGB 11.7 g/dL (13.5-17.5); Immature Grans % 0.3; Lymphocytes % 26.7; MCH 30.4 pg (27.0-33.0); MCHC 34.2 % (32.0-36.0); MCV 89 fL (80-95); Monocytes % 10.2; Neutrophils % 60.1; Platelet Count 314 10^3/uL (130-400); RBC 3.85 10^6/uL (4.36-5.78); RDW 12.2 % (11.8-14.1); RDW-SD 39.7 fL; WBC 7.71 10^3/uL (4.4-10.8)
[2023-08-28 15:16] LABS: ALT 35 U/L (16-63); AST 22 U/L (15-37); Albumin 2.9 g/dL (3.4-5.0); Alkaline Phosphatase 112 U/L (46-116); Anion Gap 9.3 mmol/L (3-11); BUN 12 mg/dL (7-18); Bilirubin, Total 0.2 mg/dL (0.2-1.0); CO2 29.7 mmol/L (21.0-32.0); CREATININE 1.3 mg/dL (0.70-1.30); Chloride 101 mmol/L (98-107); Estimated GFR 76.26 (mL/min/1.73m2); Glucose 114 mg/dL (74-106); Magnesium 1.7 mg/dL (1.8-2.4); Potassium 4.1 mmol/L (3.5-5.1); Sodium 140 mmol/L (136-145); Total Protein 7.1 g/dL (6.4-8.2)
[2023-08-28] MEDS: Lactated Ringers 1,000 ML 1000 ML IV (15:51)
[2023-08-28] MEDS: CALCIUM GLUCONATE in NaCl 1 GM/50 ML BAG IVPB (15:51)
[2023-08-28] MEDS: MAGNESIUM SULFATE 1 GM/100 ML BAG IVPB (16:35)
--- NOTE | 2023-08-28 17:06 | W.ED.GENAD ---
Discharge Plan Disposition Patient Disposition: Home Condition: Good Discharge Details Clinical Impression: Dehydration, Hypokalemia, Hypomagnesemia Primary Care Provider: Brendon Vivar ED Provider: Richy Eagle Home Meds and New Rx's Prescriptions: No Action gabapentin 300 mg capsule 300 mg PO BID Qty: 180 3RF cyclobenzaprine 10 mg tablet 10 mg PO TID PRN (Reason: muscle spasm) Qty: 30 3RF clonazepam 1 mg tablet 1 mg PO BID Qty: 56 0RF methadone 10 mg/5 mL solution 105 mg PO QAM magnesium gluconate 27 mg magnesium (500 mg) tablet 27 mg PO BID Qty: 60 3RF calcitriol 0.5 mcg capsule 0.5 mcg PO BID Qty: 360 3RF Hold Instructions: Resume on 06/15/22. diclofenac sodium 1 % gel 4 g topical QID Qty: 100 6RF Rx Instructions: apply to single knee, ankle, foot; for foot includes sole/toes/top of foot polyethylene glycol 3350 17 gram/dose powder 17 g PO DAILY omeprazole 40 mg capsule,delayed release(DR/EC) 40 mg PO DAILY Qty: 90 3RF calcium carbonate [Tums] 200 mg calcium (500 mg) tablet,chewable 2,000 mg PO BID Hold Instructions: Resume on 05/12/23. Please hold your nightly dose tonight and your a.m. dose tomorrow morning. Discharge Instructions Instructions: Dehydration (ED), Hypokalemia (ED), Hypomagnesemia (ED) Additional Instructions: At this time your calcium is borderline, your magnesium is slightly low. These have been repleted. Please increase your Tums to 2000 mg in the morning and 2500 mg at night. Please increase your magnesium from 500 mg twice daily to 500 mg in the morning and 1000 mg at night for the next 3 to 5 days. Please drink plenty fluids and stay well-hydrated. If you notice any worsening of your symptoms, or any new symptoms such as vomiting, diarrhea, fever, chills, shortness of breath, chest pain, numbness, weakness, or fainting , please return immediately to the emergency department for reevaluation. Please follow up with your primary care provider as soon as possible for reassessment and reevaluation. As always, it was a pleasure participating in your medical care today. Referrals: Brendon Vivar DO [Primary Care Provider] - HPI General Date/Time Provider Initiated Documentation: 08/28/23 13:52. HPI Narrative: This is a 27-year-old male with a past medical history significant for anxiety, depression, high cholesterol, men type I, multiple electrolyte abnormalities with subsequent parathyroidectomy on 03/26/2022 at [facility] [place], PTSD, GERD who presents today for tremor and weakness. Patient states that his symptoms feel similar to when he has had low calcium levels. He has been taking his medications as directed. He has had increases and decreases in his calcium and magnesium for his dosing, currently he is on a regiment 2 g twice daily for calcium, and 500 mg twice daily for magnesium. He states that he has been taking these as directed. Aside for slight tremor in his fingers, and mild weakness and fatigue he denies any other complaints. No chest pain or shortness of breath. No headache or vision changes. No other complaints at this time. Related Data Home Medications Medication Instructions Recorded Confirmed magnesium gluconate 27 mg 27 mg PO BID #60 tabs 11/08/22 08/28/23 magnesium (500 mg) tablet calcium carbonate 200 mg calcium 2,000 mg PO BID 02/02/23 08/28/23 (500 mg) chewable tablet (Tums) calcitriol 0.5 mcg capsule 0.5 mcg PO BID #360 caps 04/21/23 08/28/23 diclofenac sodium 1 % topical gel 4 g topical QID #100 grams 04/21/23 08/28/23 methadone 10 mg/5 mL oral solution 105 mg PO QAM 06/12/23 08/28/23 polyethylene glycol 3350 17 17 g PO DAILY 06/12/23 08/28/23 gram/dose oral powder gabapentin 300 mg capsule 300 mg PO BID #180 caps 06/23/23 08/28/23 omeprazole 40 mg capsule,delayed 40 mg PO DAILY #90 caps 07/21/23 08/28/23 release clonazepam 1 mg tablet 1 mg PO BID #56 tabs 08/18/23 08/28/23 cyclobenzaprine 10 mg tablet 10 mg PO TID PRN muscle spasm #30 08/18/23 08/28/23 tabs Previous Rx's Medication Instructions Recorded magnesium gluconate 27 mg 27 mg PO BID #60 tabs 11/08/22 magnesium (500 mg) tablet calcitriol 0.5 mcg capsule 0.5 mcg PO BID #360 caps 04/21/23 diclofenac sodium 1 % topical gel 4 g topical QID #100 grams 04/21/23 gabapentin 300 mg capsule 300 mg PO BID #180 caps 06/23/23 omeprazole 40 mg capsule,delayed 40 mg PO DAILY #90 caps 07/21/23 release clonazepam 1 mg tablet 1 mg PO BID #56 tabs 08/18/23 cyclobenzaprine 10 mg tablet 10 mg PO TID PRN muscle spasm #30 08/18/23 tabs Allergies Allergy/AdvReac Type Severity Reaction Status Date / Time codeine Allergy Intermediate pass out Verified 08/28/23 13:57 Penicillins Allergy Skin Rash Verified 08/28/23 13:57 amoxicillin AdvReac Intermediate Nausea Verified 08/28/23 13:57 dextromethorphan AdvReac Intermediate Other (See Verified 08/28/23 13:57 [From NyQuil] Comment) doxylamine [From NyQuil] AdvReac Intermediate Other (See Verified 08/28/23 13:57 Comment) pseudoephedrine [From NyQuil] AdvReac Intermediate Other (See Verified 08/28/23 13:57 Comment) General Stated Complaint: Chest Pain ADRIANA: 3 Review of Systems All systems reviewed & are unremarkable except as noted in HPI and below Exam Narrative Exam Narrative: 1.Const: Well-nourished, Well-developed, appearing stated age 2.Eyes: PERRL, no conjunctival injection, and symmetrical lids. 3.ENT: Atraumatic external nose and ears. Moist MM. Neck: Symmetric, trachea midline, No thyromegaly. 4.CVS: +S1/S2, No murmurs or gallops. Peripheral pulses 2+ and equal in all extremities. Brisk capillary refill in all extremities. 5.RESP: Unlabored respiratory effort. Clear to auscultation bilaterally. No wheezes rales or rhonchi 6.GI: Soft, Nontender/Nondistended, No hepatosplenomegaly. No guarding or rebound. 7.MSK: Normocephalic/Atraumatic, Extremities w/o deformity or ttp No cyanosis or clubbing, Normal movement of all extremities 8.Skin: Warm, Dry. No rashes or lesions. 9.Neuro: expense clerk II-XII grossly intact. Sensation grossly intact, no focal neurologic deficits. Negative Chvostek sign. Negative Trousseau sign. 10.Psych: (AAO) x3. Appropriate mood and affect Course Vital Signs Vital signs: Vital Signs Temperature 37.3 C 08/28/23 13:59 Pulse 125 H 08/28/23 13:59 Respiratory Rate 16 08/28/23 13:59 Blood Pressure 128/80 08/28/23 13:59 Pulse Oximetry 96 08/28/23 13:59 Temperature 37.3 C 08/28/23 13:59 Temperature Source Temporal Artery Scan 08/28/23 13:59 Pulse 125 H 08/28/23 13:59 Pulse 87 08/28/23 15:50 Respiratory Rate 13 08/28/23 15:50 Respiratory Effort Normal 08/28/23 14:57 Respiratory Depth Normal 08/28/23 14:57 Respiratory Pattern Normal 08/28/23 14:57 Blood Pressure 128/80 08/28/23 13:59 Blood Pressure Position Sitting 08/28/23 13:59 Pulse Oximetry 93 08/28/23 15:50 Oxygen Delivery Method Room Air 08/28/23 13:59 Oxygen Flow Rate 0 08/28/23 13:59 Pain Level 5 08/28/23 13:59 Lab/Test Results Lab/Test Results: Laboratory Tests Range/Units 08/28/23 14:46 WBC (4.4-10.8) 10^3/uL 7.71 RBC (4.36-5.78) 10^6/uL 3.85 L Hgb (13.5-17.5) g/dL 11.7 L Hct (40.0-50.0) % 34.2 L MCV (80-95) fL 89 MCH (27.0-33.0) pg 30.4 MCHC (32.0-36.0) % 34.2 RDW (11.8-14.1) % 12.2 Plt Count (130-400) 10^3/uL 314 MPV (8.0-11.0) fL 10.0 Immature Gran % 0.3 Neutrophils % 60.1 Lymphocytes % 26.7 Monocytes % 10.2 Eosinophils % 2.3 Basophils % 0.4 Nucleated RBC % (0.0-0.3) % 0.0 Absolute Neutrophils (1.2-6.7) 10^3/uL 4.63 Absolute Lymphocytes (1.2-3.4) 10^3/uL 2.06 Absolute Monocytes (0.1-0.8) 10^3/uL 0.79 Absolute Eosinophils (0.0-0.7) 10^3/uL 0.18 Absolute Basophils (0.0-0.2) 10^3/uL 0.03 Sodium (136-145) mmol/L 140 Potassium (3.5-5.1) mmol/L 4.1 Chloride (98-107) mmol/L 101 Carbon Dioxide (21.0-32.0) mmol/L 29.7 Anion Gap (3-11) mmol/L 9.3 BUN (7-18) mg/dL 12 Creatinine (0.70-1.30) mg/dL 1.3 Est GFR (CKD-EPI 2020) (mL/min/1.73m2) 76.26 Glucose (74-106) mg/dL 114 H Calcium (8.5-10.1) mg/dL 8.0 L Magnesium (1.8-2.4) mg/dL 1.7 L Total Bilirubin (0.2-1.0) mg/dL 0.2 AST (15-37) U/L 22 ALT (16-63) U/L 35 Alkaline Phosphatase (46-116) U/L 112 Total Protein (6.4-8.2) g/dL 7.1 Albumin (3.4-5.0) g/dL 2.9 L Medical Decision Making This is a 27-year-old male with a past medical history significant for anxiety, depression, high cholesterol, men type I, multiple electrolyte abnormalities with subsequent parathyroidectomy on 03/26/2022 at [facility] [place], PTSD, GERD who presents today for tremor and weakness. Patient states that his symptoms feel similar to when he has had low calcium levels. He has been taking his medications as directed. He has had increases and decreases in his calcium and magnesium for his dosing, currently he is on a regiment 2 g twice daily for calcium, and 500 mg twice daily for magnesium. He states that he has been taking these as directed. Aside for slight tremor in his fingers, and mild weakness and fatigue he denies any other complaints. No chest pain or shortness of breath. No headache or vision changes. No other complaints at this time. Exam demonstrates well-appearing male, negative Fosdick and Trousseau sign. Patient is slightly tachycardic. But otherwise appears notably well. We will check his electrolytes, monitor closely and reassess. EKG is benign. 5 PM Laboratory workup demonstrates slightly low magnesium at 1.7, calcium is 8 however corrected calcium after albumin correction demonstrates borderline normal calcium. However with his symptoms we will rehydrate with a liter of LR, give a gram of magnesium and 1 amp of calcium. Patient was given this, after administration he felt much better. Heart rate on reassessment was 92. Patient feels well and is requesting discharge. Discussed red flags for which to return. We will increase the patient's home regiment, to 2 g in the morning and 2.5 g in the evening for calcium, and 500 mg in the morning for magnesium and 1000 mg of magnesium in the evening just for the next 2 to 3 days. Discussed red flags which to return. I have extensively reviewed the treatment plan and discharge instructions with the patient. I have addressed all patient concerns at this time. The patient was made aware of what symptoms to monitor for that would warrant a return to the emergency department. Discussed the plan with the patient, they demonstrate verbal understanding and agreement with our assessment and plan at this time. The documentation in this chart was dictated using [employer] dictation software. Please excuse any dictation errors. Quality:SDOH Health Related Social Needs: Health related social needs transpo insecurity PFSH All Active Problems (Updated 08/28/23 @ 17:11 by Richy Eagle DO) Hypomagnesemia (Acute) Hypokalemia (Acute) Dehydration (Acute) Hypocalcemia (Acute) Anxiety (Chronic) Pain in scrotum (Acute) Viral illness (Acute) Knee pain (Acute) Plantar fasciitis of left foot (Acute) Hypokalemia (Acute) Dehydration (Acute) Abdominal pain (Acute) Anxiety about health (Acute) Abdominal pain (Acute) Anemia (Chronic) Hypernatremia (Acute) Cervical radiculopathy (Acute) URI (upper respiratory infection) (Acute) Left-sided Flower's palsy (Acute) Neck pain on left side (Acute) Constipation (Acute) Grief reaction (Chronic) Opiate dependence, continuous (Acute) Cellulitis (Acute) Cholelithiases (Acute) 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 Possible 2' Methadone, Clnzpm (?). Surg eval (+)/No further action. CKD (chronic kidney disease) stage 2, GFR 60-89 ml/min (Acute) GFR 64-65, with Hx FLORESITA and GFR < 45 Complex medical condition (Chronic) Serious electrolyte imbalances, with gynecomastia, possible MEN Dx, CKD and anemia with baseline anxiety and Hx PTSD. History of electrolyte imbalance (Acute) Neck pain on left side (Acute) with shoulder, upper back pain.. torticollis, radiating into left hip/leg Pulmonary nodule 1 cm or greater in diameter (Chronic) Therapeutic opioid induced constipation (Acute) Sphincter of Oddi dysfunction (Chronic) Abnormal CT scan, kidney (Acute) Intrahepatic bile duct dilation (Acute) Common bile duct dilatation (Acute) Abdominal pain (Acute) Iatrogenic hypocalcemia (Acute) Multiple endocrine neoplasia type I (Chronic) Chronic constipation (Chronic) Primary hyperparathyroidism (Chronic) Depression (Chronic) Hypomagnesemia (Chronic) Hypocalcemia (Chronic) Depression (Chronic) Suicidal ideation (Acute) Elevated parathyroid hormone (Acute) Family history of coronary arteriosclerosis (Chronic) Father of GA at 50, mother had GA at 42 Severe anxiety with panic (Chronic) Cellulitis (Acute) Medical History Hypokalemia Hypocalcemia Anxiety Depression Hyperlipidemia Family history of multiple endocrine neoplasia, type 1 PTSD (post-traumatic stress disorder) Per pt. states no triggers at this time. Surgical History H/O parathyroidectomy Family History Mother Anxiety Asthma Depression Sister Anxiety Depression Father Cancer lung & stomach Depression Diabetes Hypertension MEN 1 (multiple endocrine neoplasia) Social History Smoking/Tobacco Use Status: Never Smoking risk assessment performed?: Yes Alcohol Intake: never Drug use: Rarely Substance use type: does not use and former substance user Adopted: No Caregiver/Support person: No Foster care: No Household members: none Housing: apartment Number of Children: 0 Communication Needs: None Education Level: high school Do you need help understanding health information?: Never 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 and animals: Yes (Ally) Pets and animals: dog(s) Sexually active: No Do you think of yourself as: straight/heterosexual Current gender identity: male What is your relationship status?: How often do you talk on the phone with friends or family?: twice per week How often do you get together with friends or relatives?: never Do you belong to any clubs or organized social groups?: no Panel score (0-1 are the most socially isolated patients): 0 What type of physical activity do you participate in: walking Duration: 15-30 minutes/day Frequency: 5-6 times per week Maryam/Buddhist: Mormon Special maryam needs: No Seatbelt use: always Helmet use: Yes Helmet use: always 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
== END 2023-08-28 17:22 | disposition home or self-care (01) ==
PROVIDERS: Emergency Provider Student in an Organized Health Care Education/Training Program; PCP Family Medicine
DX: E86.0 Dehydration (principal); E87.6 Hypokalemia; E83.42 Hypomagnesemia; E89.2 Postprocedural hypoparathyroidism; N18.2 Chronic kidney disease, stage 2 (mild); E78.5 Hyperlipidemia, unspecified
CPT/HCPCS: 80053; 93005; 96365; 96368; 99284; 83735; 85025; 93010; J0613; J3475

== ENCOUNTER 2023-08-30 08:41 | Emergency (ER) | payer OTHER, SELFPAY ==
[2023-08-30] VITALS (11 sets, daily range): BP systolic 109–156; BP diastolic 33–84; PULSE 90–131; RESP 13; TEMP 37.5–38; O2SAT 93–98
[2023-08-30] MEDS: Normal Saline 1,000 ML 1000 ML IV (09:20)
[2023-08-30] MEDS: HYDROmorphone 2 MG/ML SYR 1 MG IVP (09:20)
[2023-08-30] MEDS: Ketorolac 15 MG/ML VIAL IVP (09:20)
[2023-08-30] MEDS: CLINDAMYCIN 900 MG/50 ML BAG 50 MG IVPB (09:20)
--- NOTE | 2023-08-30 09:40 | W.ED.GENAD ---
Discharge Plan Disposition Patient Disposition: Home Discharge Details Clinical Impression: Pain, dental Primary Care Provider: Brendon Vivar ED Provider: Crow Gama Home Meds and New Rx's Prescriptions: No Action gabapentin 300 mg capsule 300 mg PO BID Qty: 180 3RF cyclobenzaprine 10 mg tablet 10 mg PO TID PRN (Reason: muscle spasm) Qty: 30 3RF clonazepam 1 mg tablet 1 mg PO BID Qty: 56 0RF methadone 10 mg/5 mL solution 105 mg PO QAM magnesium gluconate 27 mg magnesium (500 mg) tablet 27 mg PO BID Qty: 60 3RF calcitriol 0.5 mcg capsule 0.5 mcg PO BID Qty: 360 3RF Hold Instructions: Resume on 06/15/22. diclofenac sodium 1 % gel 4 g topical QID Qty: 100 6RF Rx Instructions: apply to single knee, ankle, foot; for foot includes sole/toes/top of foot polyethylene glycol 3350 17 gram/dose powder 17 g PO DAILY omeprazole 40 mg capsule,delayed release(DR/EC) 40 mg PO DAILY Qty: 90 3RF calcium carbonate [Tums] 200 mg calcium (500 mg) tablet,chewable 2,000 mg PO BID Hold Instructions: Resume on 05/12/23. Please hold your nightly dose tonight and your a.m. dose tomorrow morning. Discharge Instructions Instructions: Toothache (ED) Additional Instructions: Please take medication as recommended. Please take your antibiotics as prescribed by your oral surgeon You have been given a very limited supply of narcotics and please use these only as needed for severe pain. If you have any new or significant worsening of symptoms feel free to return the emergency department as needed for reassessment otherwise follow-up with your oral surgeon Stand Alone Forms: Work Release Referrals: Brendon Vivar DO [Primary Care Provider] - (As needed for reassessment) [facility] General Mode of arrival: ambulatory. Date/Time Provider Initiated Documentation: 08/30/23 08:43. Limitations to Documentation: no limitations. Information obtained by: patient and RN notes reviewed. History of Present Illness 27 year old M presents to the emergency department with the chief complaint of Dental pain, tachycardia, described as moderate and severe, Patient started experiencing this day(s) (1) and it has been constant. No relieving factors improve symptom(s), Patient notes no other symptoms.. Patient did receive the following treatments prior to arrival, NSAID Related Data Home Medications Medication Instructions Recorded Confirmed magnesium gluconate 27 mg 27 mg PO BID #60 tabs 11/08/22 08/30/23 magnesium (500 mg) tablet calcium carbonate 200 mg calcium 2,000 mg PO BID 02/02/23 08/30/23 (500 mg) chewable tablet (Tums) calcitriol 0.5 mcg capsule 0.5 mcg PO BID #360 caps 04/21/23 08/30/23 diclofenac sodium 1 % topical gel 4 g topical QID #100 grams 04/21/23 08/30/23 methadone 10 mg/5 mL oral solution 105 mg PO QAM 06/12/23 08/30/23 polyethylene glycol 3350 17 17 g PO DAILY 06/12/23 08/30/23 gram/dose oral powder gabapentin 300 mg capsule 300 mg PO BID #180 caps 06/23/23 08/30/23 omeprazole 40 mg capsule,delayed 40 mg PO DAILY #90 caps 07/21/23 08/30/23 release clonazepam 1 mg tablet 1 mg PO BID #56 tabs 08/18/23 08/30/23 cyclobenzaprine 10 mg tablet 10 mg PO TID PRN muscle spasm #30 08/18/23 08/30/23 tabs Previous Rx's Medication Instructions Recorded magnesium gluconate 27 mg 27 mg PO BID #60 tabs 11/08/22 magnesium (500 mg) tablet calcitriol 0.5 mcg capsule 0.5 mcg PO BID #360 caps 04/21/23 diclofenac sodium 1 % topical gel 4 g topical QID #100 grams 04/21/23 gabapentin 300 mg capsule 300 mg PO BID #180 caps 06/23/23 omeprazole 40 mg capsule,delayed 40 mg PO DAILY #90 caps 07/21/23 release clonazepam 1 mg tablet 1 mg PO BID #56 tabs 08/18/23 cyclobenzaprine 10 mg tablet 10 mg PO TID PRN muscle spasm #30 08/18/23 tabs Allergies Allergy/AdvReac Type Severity Reaction Status Date / Time codeine Allergy Intermediate pass out Verified 08/30/23 08:54 Penicillins Allergy Skin Rash Verified 08/30/23 08:54 amoxicillin AdvReac Intermediate Nausea Verified 08/30/23 08:54 dextromethorphan AdvReac Intermediate Other (See Verified 08/30/23 08:54 [From NyQuil] Comment) doxylamine [From NyQuil] AdvReac Intermediate Other (See Verified 08/30/23 08:54 Comment) pseudoephedrine [From NyQuil] AdvReac Intermediate Other (See Verified 08/30/23 08:54 Comment) General Stated Complaint: DentalOral ADRIANA: 3 Review of Systems Constitutional Constitutional: Denies fever(s), Denies headache(s) and Reports poor appetite ENT Ears, Nose, Mouth, and Throat: Reports as per HPI, Reports dental pain, Denies headache(s), Denies throat swelling and Denies tongue swelling Cardiovascular Cardiovascular: Denies chest pain at rest, Reports rapid heart rate and Denies dyspnea Respiratory Respiratory: Denies dyspnea Neurologic Neurologic: Denies headache(s) Psychiatric Psychiatric: Denies anxiety Allergic/Immunologic Allergic/Immunologic: Denies throat swelling and Denies tongue swelling Exam Const General: cooperative Orientation: alert, awake and oriented x3 Limitations: mental status not altered HENMT Head: normal to inspection, normocephalic and atraumatic Ears: hearing grossly normal bilaterally and normal mastoids bilaterally General nose exam: external nose normal Face and sinus: normal facial exam Mouth: oropharynx normal, drooling, no muffled voice, normal tongue and trismus Teeth and gingiva: edentulous and other (Postoperative sutures in place) Throat: uvula midline Eyes General: appearance normal, both eyes and all related structures Pupils: PERRL Neck Neck: normal visual inspection, full ROM, no lymphadenopathy, no meningeal signs, trachea midline, supple, no anterior neck swelling and no midline deformity Resp Effort & Inspection: normal respiratory effort and able to speak in complete sentences Course Vital Signs Vital signs: Vital Signs Pulse Oximetry 95 08/30/23 08:45 Temperature 37.5 C 08/30/23 08:59 Temperature Source Oral 08/30/23 08:59 Pulse 109 H 08/30/23 09:10 Respiratory Rate 13 08/30/23 08:52 Respiratory Effort Normal, Non-Labored 08/30/23 08:51 Blood Pressure 109/66 08/30/23 09:10 Blood Pressure Mean 77 08/30/23 09:10 Blood Pressure Position Sitting 08/30/23 08:52 Pulse Oximetry 93 08/30/23 09:11 Oxygen Delivery Method Room Air 08/30/23 08:52 Oxygen Flow Rate 0 08/30/23 08:52 Pain Level 9 08/30/23 09:20 Medical Decision Making Patient presenting to the emergency department for chief complaint of severe dental pain and tachycardia. Patient reports complete teeth removal both upper and lower yesterday in preparation for implants. He was recommended to take Tylenol and Motrin which he did in the middle the night but he is having severe pain and unable to take his antibiotics. Physical exam shows tachycardia, initial fever but then when rechecked orally patient is afebrile, hypertensive and oral exam does show some trismus secondary to pain, and postoperative appearance with sutures in place, no signs of deep neck space infection ( Retropharyngeal abscess, Nilesh's angina, Parapharyngeal space infection, Peritonsillar Abscess ([employer])) or Epiglottitis. Pt non toxic and stable. Do feel that patient is here secondary to pain control. Patient is on methadone but has had no substance abuse for the past 6 years, I have seen patient in emergency department multiple occasions even for traumatic events and patient has never requested pain medication and I do feel given circumstance is reasonable to receive opiate pain meds. Discussed risk versus benefit of this with patient and patient understands those risks. Patient given 1 milligram of hydromorphone, and fluids and and IV dose of clindamycin given that he is unable to tolerate p.o. intake secondary to pain at this time. Reassessed patient and patient states significant improvement of symptoms, tachycardia has resolved, patient stable for discharge. Did have further discussion with patient in regards to very limited supply of narcotics for home use. Again patient states understanding but given circumstance I do feel that patient will not have adequate pain control with use of Tylenol and Motrin which she has been using given the extensive dental surgery he had. After thorough discussion with patient patient given 2 oxycodone for home use and understands to use them for severe pain only. After discussion of diagnosis and plan of care patient has no further needs, questions, or concerns and states clear understanding to return to the emergency department for any worsening symptoms. This documentation was generated using [employer] system, please disregard any oddities of phrase or misspellings. Quality:SDOH Health Related Social Needs: Health related social needs transpo insecurity PFSH All Active Problems (Updated 08/30/23 @ 11:02 by Crow Gama NP) Pain, dental (Acute) Hypomagnesemia (Acute) Hypokalemia (Acute) Dehydration (Acute) Hypocalcemia (Acute) Anxiety (Chronic) Pain in scrotum (Acute) Viral illness (Acute) Knee pain (Acute) Plantar fasciitis of left foot (Acute) Hypokalemia (Acute) Dehydration (Acute) Abdominal pain (Acute) Anxiety about health (Acute) Abdominal pain (Acute) Hypernatremia (Acute) Cervical radiculopathy (Acute) URI (upper respiratory infection) (Acute) Left-sided Flower's palsy (Acute) Neck pain on left side (Acute) Constipation (Acute) Grief reaction (Chronic) Opiate dependence, continuous (Acute) Cellulitis (Acute) Cholelithiases (Acute) 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 ED Left arm numbness (Acute) Gynecomastia, male (Acute) b/l, per CT (Jul 2022).. Possible 2' Methadone, Clnzpm (?). Surg eval (+)/No further action. CKD (chronic kidney disease) stage 2, GFR 60-89 ml/min (Acute) GFR 64-65, with Hx FLORESITA and GFR < 45 Complex medical condition (Chronic) Serious electrolyte imbalances, with gynecomastia, possible MEN Dx, CKD and anemia with baseline anxiety and Hx PTSD. History of electrolyte imbalance (Acute) Neck pain on left side (Acute) with shoulder, upper back pain.. torticollis, radiating into left hip/leg Pulmonary nodule 1 cm or greater in diameter (Chronic) Therapeutic opioid induced constipation (Acute) Sphincter of Oddi dysfunction (Chronic) Abnormal CT scan, kidney (Acute) Intrahepatic bile duct dilation (Acute) Common bile duct dilatation (Acute) Abdominal pain (Acute) Iatrogenic hypocalcemia (Acute) Multiple endocrine neoplasia type I (Chronic) Chronic constipation (Chronic) Primary hyperparathyroidism (Chronic) Depression (Chronic) Hypomagnesemia (Chronic) Hypocalcemia (Chronic) Depression (Chronic) Suicidal ideation (Acute) Elevated parathyroid hormone (Acute) Family history of coronary arteriosclerosis (Chronic) Father of [place] at 50, mother had [place] at 42 Severe anxiety with panic (Chronic) Cellulitis (Acute) Medical History Hypokalemia Hypocalcemia Anxiety Depression Hyperlipidemia Family history of multiple endocrine neoplasia, type 1 PTSD (post-traumatic stress disorder) Per pt. states no triggers at this time. Surgical History H/O parathyroidectomy Family History Mother Anxiety Asthma Depression Sister Anxiety Depression Father Cancer lung & stomach Depression Diabetes Hypertension MEN 1 (multiple endocrine neoplasia) Social History Smoking/Tobacco Use Status: Never Smoking risk assessment performed?: Yes Alcohol Intake: never Drug use: Rarely Substance use type: does not use and former substance user Adopted: No Caregiver/Support person: No Foster care: No Household members: none Housing: apartment Number of Children: 0 Communication Needs: None Education Level: high school Do you need help understanding health information?: Never 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 and animals: Yes (Ally) Pets and animals: dog(s) Sexually active: No Do you think of yourself as: straight/heterosexual Current gender identity: male What is your relationship status?: How often do you talk on the phone with friends or family?: twice per week How often do you get together with friends or relatives?: never Do you belong to any clubs or organized social groups?: no Panel score (0-1 are the most socially isolated patients): 0 What type of physical activity do you participate in: walking Duration: 15-30 minutes/day Frequency: 5-6 times per week Maryam/Jewish: Orthodox Special maryam needs: No Seatbelt use: always Helmet use: Yes Helmet use: always Drive 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 stock 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
[2023-08-30] MEDS: oxyCODONE 5 MG TAB 10 MG PO (11:13)
== END 2023-08-30 11:17 | disposition home or self-care (01) ==
PROVIDERS: Emergency Provider Nurse Practitioner Family; PCP Family Medicine
DX: R00.0 Tachycardia, unspecified (principal); G89.18 Other acute postprocedural pain; R50.9 Fever, unspecified; K08.89 Other specified disorders of teeth and supporting structures
CPT/HCPCS: 96361; 96374; 96375; 99284; 99283; J0737; J1170; J1885

== ENCOUNTER 2023-08-31 13:10 | Emergency (ER) | payer OTHER, SELFPAY ==
[2023-08-31 13:17] VITALS: BP 128/80; PULSE 86; RESP 12; TEMP 37.7; O2SAT 96
--- NOTE | 2023-08-31 13:30 | W.ED.GENAD ---
Discharge Plan Disposition Patient Disposition: Home Condition: Stable Discharge Details Clinical Impression: Oral pain Primary Care Provider: Brendon Vivar ED Provider: Ricardo Crabtree Home Meds and New Rx's Prescriptions: Continued gabapentin 300 mg capsule 300 mg PO BID Qty: 180 3RF cyclobenzaprine 10 mg tablet 10 mg PO TID PRN (Reason: muscle spasm) Qty: 30 3RF clonazepam 1 mg tablet 1 mg PO BID Qty: 56 0RF methadone 10 mg/5 mL solution 105 mg PO QAM magnesium gluconate 27 mg magnesium (500 mg) tablet 27 mg PO BID Qty: 60 3RF calcitriol 0.5 mcg capsule 0.5 mcg PO BID Qty: 360 3RF Hold Instructions: Resume on 06/15/22. diclofenac sodium 1 % gel 4 g topical QID Qty: 100 6RF Rx Instructions: apply to single knee, ankle, foot; for foot includes sole/toes/top of foot polyethylene glycol 3350 17 gram/dose powder 17 g PO DAILY omeprazole 40 mg capsule,delayed release(DR/EC) 40 mg PO DAILY Qty: 90 3RF calcium carbonate [Tums] 200 mg calcium (500 mg) tablet,chewable 2,000 mg PO BID Hold Instructions: Resume on 05/12/23. Please hold your nightly dose tonight and your a.m. dose tomorrow morning. Discharge Instructions Additional Instructions: Follow-up with your primary care provider or oral surgeon in 1 to 2 weeks Or have severe worsening pain despite taking pain medication return to the emergency department for reevaluation HPI General Mode of arrival: ambulatory. Date/Time Provider Initiated Documentation: 08/31/23 13:24. Limitations to Documentation: no limitations. Information obtained by: patient. History of Present Illness 27 year old M presents to the emergency department with the chief complaint of Mouth pain, described as moderate, Quality is described as aching, and is localized to the mouth. Patient reports no radiation. and it has been constant. No relieving factors improve symptom(s), No exacerbating factors reported . Patient notes no other symptoms.. Patient did receive the following treatments prior to arrival, none Related Data Home Medications Medication Instructions Recorded Confirmed magnesium gluconate 27 mg 27 mg PO BID #60 tabs 11/08/22 08/31/23 magnesium (500 mg) tablet calcium carbonate 200 mg calcium 2,000 mg PO BID 02/02/23 08/31/23 (500 mg) chewable tablet (Tums) calcitriol 0.5 mcg capsule 0.5 mcg PO BID #360 caps 04/21/23 08/31/23 diclofenac sodium 1 % topical gel 4 g topical QID #100 grams 04/21/23 08/31/23 methadone 10 mg/5 mL oral solution 105 mg PO QAM 06/12/23 08/31/23 polyethylene glycol 3350 17 17 g PO DAILY 06/12/23 08/31/23 gram/dose oral powder gabapentin 300 mg capsule 300 mg PO BID #180 caps 06/23/23 08/31/23 omeprazole 40 mg capsule,delayed 40 mg PO DAILY #90 caps 07/21/23 08/31/23 release clonazepam 1 mg tablet 1 mg PO BID #56 tabs 08/18/23 08/31/23 cyclobenzaprine 10 mg tablet 10 mg PO TID PRN muscle spasm #30 08/18/23 08/31/23 tabs Previous Rx's Medication Instructions Recorded magnesium gluconate 27 mg 27 mg PO BID #60 tabs 11/08/22 magnesium (500 mg) tablet calcitriol 0.5 mcg capsule 0.5 mcg PO BID #360 caps 04/21/23 diclofenac sodium 1 % topical gel 4 g topical QID #100 grams 04/21/23 gabapentin 300 mg capsule 300 mg PO BID #180 caps 06/23/23 omeprazole 40 mg capsule,delayed 40 mg PO DAILY #90 caps 07/21/23 release clonazepam 1 mg tablet 1 mg PO BID #56 tabs 08/18/23 cyclobenzaprine 10 mg tablet 10 mg PO TID PRN muscle spasm #30 08/18/23 tabs Allergies Allergy/AdvReac Type Severity Reaction Status Date / Time codeine Allergy Intermediate pass out Verified 08/31/23 13:24 Penicillins Allergy Skin Rash Verified 08/31/23 13:24 amoxicillin AdvReac Intermediate Nausea Verified 08/31/23 13:24 dextromethorphan AdvReac Intermediate Other (See Verified 08/31/23 13:24 [From NyQuil] Comment) doxylamine [From NyQuil] AdvReac Intermediate Other (See Verified 08/31/23 13:24 Comment) pseudoephedrine [From NyQuil] AdvReac Intermediate Other (See Verified 08/31/23 13:24 Comment) General Stated Complaint: DentalOral ADRIANA: 4 Review of Systems All systems reviewed & are unremarkable except as noted in HPI and below Constitutional Constitutional: Denies chills, Denies fever(s) and Denies weakness Cardiovascular Cardiovascular: Denies chest pain and Denies dyspnea Respiratory Respiratory: Denies cough and Denies dyspnea Gastrointestinal Gastrointestinal: Denies abdominal pain Genitourinary Genitourinary: Denies dysuria Musculoskeletal Musculoskeletal: Denies joint swelling Integumentary/Breasts Skin/Breast: Denies rash Neurologic Neurologic: Denies weakness Exam Const General: no acute distress Orientation: alert HENWA Head: normal to inspection Ears: external ears normal General nose exam: external nose normal Throat: posterior oropharynx normal and uvula midline Eyes General: appearance normal, both eyes and all related structures Neck Neck: normal visual inspection Resp Effort & Inspection: normal respiratory effort and able to speak in complete sentences Cardio Rate: regular rate Skin General skin exam: no rashes or lesions noted Neuro General: patient alert and patient oriented x3 Extrem General: normal to inspection Psych Mental Status: mental status grossly normal Course Vital Signs Vital signs: Vital Signs Temperature 37.7 C H 08/31/23 13:17 Pulse 86 08/31/23 13:17 Respiratory Rate 12 08/31/23 13:17 Blood Pressure 128/80 08/31/23 13:17 Pulse Oximetry 96 08/31/23 13:17 Temperature 37.7 C H 08/31/23 13:17 Temperature Source Skin 08/31/23 13:17 Pulse 86 08/31/23 13:17 Respiratory Rate 12 08/31/23 13:17 Blood Pressure 128/80 08/31/23 13:17 Blood Pressure Position Sitting 08/31/23 13:17 Pulse Oximetry 96 08/31/23 13:17 Oxygen Delivery Method Room Air 08/31/23 13:17 Oxygen Flow Rate 0 08/31/23 13:17 Pain Level 8 08/31/23 13:17 Comment 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 He states he feels dehydrated, he arrives stable speaking clearly. He has no submandibular swelling, posterior pharynx is normal with midline uvula, no swelling of the gums and no drainage from the tooth extraction site. Pain over the hyoid and no restricted neck movement. Suspect routine postop pain and nausea vomiting related to taking antibiotics on an empty stomach. Will provide Toradol for IV fluids and a dose of IV clindamycin and reassess. Patient feeling better, resting in bed with no distress, is drinking water without problems. He feels well after discharge and stable for discharge, advised to follow-up with his primary care provider and oral surgeon, return precautions given Differential Diagnosis Differential Diagnosis: Postop pain, dehydration Quality:SDOH Health Related Social Needs: Health related social needs transpo insecurity PFSH All Active Problems (Updated 08/31/23 @ 14:36 by Ricardo Crabtree MD) Oral pain (Acute) Pain, dental (Acute) Hypomagnesemia (Acute) Hypokalemia (Acute) Dehydration (Acute) Hypocalcemia (Acute) Anxiety (Chronic) Pain in scrotum (Acute) Viral illness (Acute) Knee pain (Acute) Plantar fasciitis of left foot (Acute) Hypokalemia (Acute) Dehydration (Acute) Abdominal pain (Acute) Anxiety about health (Acute) Hypernatremia (Acute) Cervical radiculopathy (Acute) URI (upper respiratory infection) (Acute) Left-sided Flower's palsy (Acute) Neck pain on left side (Acute) Constipation (Acute) Grief reaction (Chronic) Opiate dependence, continuous (Acute) Cellulitis (Acute) Cholelithiases (Acute) 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 Possible 2' Methadone, Clnzpm (?). Surg eval (+)/No further action. CKD (chronic kidney disease) stage 2, GFR 60-89 ml/min (Acute) GFR 64-65, with Hx FLORESITA and GFR < 45 Complex medical condition (Chronic) Serious electrolyte imbalances, with gynecomastia, possible MEN Dx, CKD and anemia with baseline anxiety and Hx PTSD. History of electrolyte imbalance (Acute) Neck pain on left side (Acute) with shoulder, upper back pain.. torticollis, radiating into left hip/leg Pulmonary nodule 1 cm or greater in diameter (Chronic) Therapeutic opioid induced constipation (Acute) Sphincter of Oddi dysfunction (Chronic) Abnormal CT scan, kidney (Acute) Intrahepatic bile duct dilation (Acute) Common bile duct dilatation (Acute) Abdominal pain (Acute) Iatrogenic hypocalcemia (Acute) Multiple endocrine neoplasia type I (Chronic) Chronic constipation (Chronic) Primary hyperparathyroidism (Chronic) Depression (Chronic) Hypomagnesemia (Chronic) Hypocalcemia (Chronic) Depression (Chronic) Suicidal ideation (Acute) Elevated parathyroid hormone (Acute) Family history of coronary arteriosclerosis (Chronic) Father of [place] at 50, mother had [place] at 42 Severe anxiety with panic (Chronic) Cellulitis (Acute) Medical History Hypokalemia Hypocalcemia Anxiety Depression Hyperlipidemia Family history of multiple endocrine neoplasia, type 1 PTSD (post-traumatic stress disorder) Per pt. states no triggers at this time. Surgical History H/O parathyroidectomy Family History Mother Anxiety Asthma Depression Sister Anxiety Depression Father Cancer lung & stomach Depression Diabetes Hypertension MEN 1 (multiple endocrine neoplasia) Social History Smoking/Tobacco Use Status: Never Smoking risk assessment performed?: Yes Alcohol Intake: never Drug use: Rarely Substance use type: does not use and former substance user Adopted: No Caregiver/Support person: No Foster care: No Household members: none Housing: apartment Number of Children: 0 Communication Needs: None Education Level: high school Do you need help understanding health information?: Never 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 and animals: Yes (Ally) Pets and animals: dog(s) Sexually active: No Do you think of yourself as: straight/heterosexual Current gender identity: male What is your relationship status?: How often do you talk on the phone with friends or family?: twice per week How often do you get together with friends or relatives?: never Do you belong to any clubs or organized social groups?: no Panel score (0-1 are the most socially isolated patients): 0 What type of physical activity do you participate in: walking Duration: 15-30 minutes/day Frequency: 5-6 times per week Maryam/Islam: Bahai Special maryam needs: No Seatbelt use: always Helmet use: Yes Helmet use: always Drive 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 truck driver's offsider: No Do you feel safe at home: Yes Do you feel safe in your relationship?: Yes Additional Social history: on methadone
[2023-08-31] MEDS: Normal Saline 1,000 ML 1000 ML IV (13:50)
[2023-08-31] MEDS: Ketorolac 15 MG/ML VIAL IVP (13:53)
[2023-08-31] MEDS: Dexamethasone 10 MG/ML VIAL IVP (13:54)
[2023-08-31] MEDS: CLINDAMYCIN 600 MG/50 ML BAG 100 MG IVPB (13:57)
== END 2023-08-31 14:59 | disposition home or self-care (01) ==
PROVIDERS: Emergency Provider Emergency Medicine; PCP Family Medicine
DX: K08.89 Other specified disorders of teeth and supporting structures (principal); E78.5 Hyperlipidemia, unspecified
CPT/HCPCS: 96365; 96375; 99284; 99283; J0737; J1100; J1885

== ENCOUNTER 2023-09-03 09:42 | Emergency (ER) | payer OTHER, SELFPAY ==
--- NOTE | 2023-09-03 09:30 | RT.EKG_ITS ---
APPROVED REPORT Exam: Resting ECG Reason for Exam: SOB Patient Location: E HR:124 bpm ECG Measurements Heart Rate 124 AXIS [place] 157 P 42 QRSd 89 QRS 65 QT 319 T 24 QTc 459 Conclusion Sinus tachycardia 124 no stemi
[2023-09-03 09:48] VITALS: BP 168/98; PULSE 133; RESP 22; TEMP 37.7; O2SAT 99
--- NOTE | 2023-09-03 10:00 | DI.US_ITS ---
Exam(s) US UPPER EXTREMITY VENOUS RT EXAM: US UPPER EXTREMITY VENOUS RT CLINICAL HISTORY: Arm pain, IV site. TECHNIQUE: Ultrasound examination of the right upper extremity venous system(s) is performed using g rayscale, color-flow, and spectral Doppler analysis. COMPARISON: No exams were available for comparison FINDINGS: The right internal jugular, axillary, subclavian, cephalic, basilic, brachial, and median cubital vei ns are freely compressible. No thrombus visible. No drainable fluid collection. No superficial thr ombophlebitis. IMPRESSION: No DVT. DATA REPOSITORY:
--- NOTE | 2023-09-03 10:18 | ED.GENADUL_ITS ---
Discharge Plan Disposition Patient Disposition: Home Condition: Stable Discharge Details Clinical Impression: Arm pain, Anxiety Primary Care Provider: Brendon Vivar ED Provider: Antoinette Templeton Home Meds and New Rx's Prescriptions: Continued gabapentin 300 mg capsule 300 mg PO BID Qty: 180 3RF cyclobenzaprine 10 mg tablet 10 mg PO TID PRN (Reason: muscle spasm) Qty: 30 3RF clonazepam 1 mg tablet 1 mg PO BID Qty: 56 0RF methadone 10 mg/5 mL solution 105 mg PO QAM magnesium gluconate 27 mg magnesium (500 mg) tablet 27 mg PO BID Qty: 60 3RF calcitriol 0.5 mcg capsule 0.5 mcg PO BID Qty: 360 3RF Hold Instructions: Resume on 06/15/22. diclofenac sodium 1 % gel 4 g topical QID Qty: 100 6RF Rx Instructions: apply to single knee, ankle, foot; for foot includes sole/toes/top of foot polyethylene glycol 3350 17 gram/dose powder 17 g PO DAILY omeprazole 40 mg capsule,delayed release(DR/EC) 40 mg PO DAILY Qty: 90 3RF clindamycin HCl 150 mg capsule 150 mg PO TID calcium carbonate [Tums] 200 mg calcium (500 mg) tablet,chewable 2,000 mg PO BID Hold Instructions: Resume on 05/12/23. Please hold your nightly dose tonight and your a.m. dose tomorrow morning. Discharge Instructions Instructions: Anxiety (ED) Additional Instructions: No evidence of blood clot in your arm or any abnormality from the IV stick. Your labs are all within normal limits. Calcium is within normal limits and the rest of your electrolytes. Follow up with primary care provider in 3-5 days. Return to ED sooner if any worsening or concerns. Please take Tylenol or Ibuprofen with food every 4-6 hours as needed for pain and swelling. Referrals: Brendon Vivar DO [Primary Care Provider] - 3 days Discharge Data Discharge Date/Time-TO BE ENTERED AT DEPARTURE: 09/03/23 12:12 HPI General Mode of arrival: ambulatory . Date/Time Provider Initiated Documentation: 09/03/23 09:44 . Limitations to Documentation: no limitations . Information obtained by: patient, RN notes reviewed and old records reviewed . HPI Narrative: 27-year-old male presents to the ER with a chief complaint of right arm pain after having an IV started and that antecubital space 2 days ago. He does have some bruising there. He reports that the pain is getting worse. He states that he does get short of breath when walking denies any chest pain. He states that he just feels overly unwell. He is also still complaining of oral pain which he has been seen multiple times for dental pain. He did take methadone prior to arrival did not take any of his other medications. Related Data Home Medications Medication Instructions Recorded Confirmed magnesium gluconate 27 mg 27 mg PO BID #60 tabs 11/08/22 09/03/23 magnesium (500 mg) tablet calcium carbonate 200 mg calcium 2,000 mg PO BID 02/02/23 09/03/23 (500 mg) chewable tablet (Tums) calcitriol 0.5 mcg capsule 0.5 mcg PO BID #360 caps 04/21/23 09/03/23 diclofenac sodium 1 % topical gel 4 g topical QID #100 grams 04/21/23 09/03/23 methadone 10 mg/5 mL oral solution 105 mg PO QAM 06/12/23 09/03/23 polyethylene glycol 3350 17 17 g PO DAILY 06/12/23 09/03/23 gram/dose oral powder gabapentin 300 mg capsule 300 mg PO BID #180 caps 06/23/23 09/03/23 omeprazole 40 mg capsule,delayed 40 mg PO DAILY #90 caps 07/21/23 09/03/23 release clonazepam 1 mg tablet 1 mg PO BID #56 tabs 08/18/23 09/03/23 cyclobenzaprine 10 mg tablet 10 mg PO TID PRN muscle spasm #30 08/18/23 09/03/23 tabs clindamycin HCl 150 mg capsule 150 mg PO TID 09/01/23 09/03/23 Previous Rx's Medication Instructions Recorded magnesium gluconate 27 mg 27 mg PO BID #60 tabs 11/08/22 magnesium (500 mg) tablet calcitriol 0.5 mcg capsule 0.5 mcg PO BID #360 caps 04/21/23 diclofenac sodium 1 % topical gel 4 g topical QID #100 grams 04/21/23 gabapentin 300 mg capsule 300 mg PO BID #180 caps 06/23/23 omeprazole 40 mg capsule,delayed 40 mg PO DAILY #90 caps 07/21/23 release clonazepam 1 mg tablet 1 mg PO BID #56 tabs 08/18/23 cyclobenzaprine 10 mg tablet 10 mg PO TID PRN muscle spasm #30 08/18/23 tabs Allergies Allergy/AdvReac Type Severity Reaction Status Date / Time codeine Allergy Intermediate pass out Verified 09/03/23 09:51 Penicillins Allergy Skin Rash Verified 09/03/23 09:51 amoxicillin AdvReac Intermediate Nausea Verified 09/03/23 09:51 dextromethorphan AdvReac Intermediate Other (See Verified 09/03/23 09:51 [From NyQuil] Comment) doxylamine [From NyQuil] AdvReac Intermediate Other (See Verified 09/03/23 09:51 Comment) pseudoephedrine [From NyQuil] AdvReac Intermediate Other (See Verified 09/03/23 09:51 Comment) General Stated Complaint: SOB ADRIANA: 3 Review of Systems All systems reviewed & are unremarkable except as noted in HPI and below Musculoskeletal Musculoskeletal: Reports as per HPI Integumentary/Breasts Skin/Breast: Reports as per HPI Exam Narrative Exam Narrative: Constitutional: Alert and oriented x3. Appears stated age. Normal body habitus. Head: Normocephalic, no trauma. Eyes: Pupils PERRL, Red reflex noted, EOM's intact. Eyelids symmetrical without lesions, discharge, or swelling. ENT: Bilateral TM's WNL, External ear normal to inspection, no mastoid TTP, swelling, or erythema, Nasal turbinates WNL, no nasal discharge. Normal dentition, Posterior pharynx WNL, no exudate. Chest: RRR, Normal S1, S2, distal pulses intact. Resp: Lungs clear to auscultation bilaterally, no wheezes, rales, or rhonchi. Abdomen: Soft, non-distended, Normoactive bowel sounds all 4 quads. Musculoskeletal: Normal gait, Skin: Small amount of bruising to the right antecubital space, no surrounding significant swelling or erythema, capillary refill less than 2 sec. Neurologic: Cranial nerves II-XII intact. Alert and oriented x 3. Motor: No deficits noted. Sensory: Intact bilaterally all 4 extremities. Hematologic/Lymphatic: No ecchymosis, no lymphadenopathy. Course Vital Signs Vital signs: Vital Signs Temperature 37.7 C H 09/03/23 09:48 Pulse 133 H 09/03/23 09:48 Respiratory Rate 22 09/03/23 09:48 Blood Pressure 168/98 H 09/03/23 09:48 Pulse Oximetry 99 09/03/23 09:48 Temperature 37.7 C H 09/03/23 09:48 Temperature Source Skin 09/03/23 09:48 Pulse 133 H 09/03/23 09:48 Respiratory Rate 22 09/03/23 09:48 Respiratory Effort Short of Breath 09/03/23 09:51 Blood Pressure 168/98 H 09/03/23 09:48 Blood Pressure Position Sitting 09/03/23 09:48 Pulse Oximetry 99 09/03/23 09:48 Oxygen Delivery Method Room Air 09/03/23 09:48 Oxygen Flow Rate 0 09/03/23 09:48 Pain Level 5 09/03/23 09:48 Medical Decision Making 27-year-old male presents to the ER with a chief complaint of right arm pain after having an IV started and that antecubital space 2 days ago. He does have some bruising there. He reports that the pain is getting worse. He states that he does get short of breath when walking denies any chest pain. He states that he just feels overly unwell. He is also still complaining of oral pain which he has been seen multiple times for dental pain. He did take methadone prior to arrival did not take any of his other medications. On exam he does present tachycardic. He does have some bruising to his antecubital space and arm pain. Ultrasound ordered of his right arm to rule out DVT. Or thrombophlebitis. I do suspect superficial phlebitis. Labs ordered to evaluate electrolytes as patient has history of parathyroid cancer with prior thyroidectomy. Does have a history of hypocalcemia hypokalemia, depression, anxiety hyperlipidemia and PTSD. Workup ordered to check electrolytes and ultrasound of his right upper extremity and EKG performed by ER staff. Ultrasound is negative for DVT, superficial thrombophlebitis or any abnormality. Labs are largely within normal limits, calcium potassium within normal limits. This text was generated using Vuduation system, please disregard any oddities of phrase or misspellings. Medical Records Medical records reviewed: Yes I reviewed the patient's medical records. Medical records narrative: Patient is well-known to the department seen here recently. Imaging Data Radiologic Study: Imaging: Ultrasound Radiologist's impression: Exam(s) US UPPER EXTREMITY VENOUS RT EXAM: US UPPER EXTREMITY VENOUS RT CLINICAL HISTORY: Arm pain, IV site. TECHNIQUE: Ultrasound examination of the right upper extremity venous system(s) is performed using grayscale, color-flow, and spectral Doppler analysis. COMPARISON: No exams were available for comparison FINDINGS: The right internal jugular, axillary, subclavian, cephalic, basilic, brachial, and median cubital veins are freely compressible. No thrombus visible. No drainable fluid collection. No superficial thrombophlebitis. IMPRESSION: No DVT. Lab Data Lab results reviewed: Yes I reviewed the patient's lab results. Labs: Laboratory Tests Range/Units 09/03/23 11:05 WBC (4.4-10.8) 10^3/uL 10.59 RBC (4.36-5.78) 10^6/uL 4.35 L Hgb (13.5-17.5) g/dL 13.3 L Hct (40.0-50.0) % 40.0 MCV (80-95) fL 92 MCH (27.0-33.0) pg 30.6 MCHC (32.0-36.0) % 33.3 RDW (11.8-14.1) % 12.5 Plt Count (130-400) 10^3/uL 326 MPV (8.0-11.0) fL 10.1 Immature Gran % 0.6 Neutrophils % 64.7 Lymphocytes % 20.5 Monocytes % 11.6 Eosinophils % 2.1 Basophils % 0.5 Nucleated RBC % (0.0-0.3) % 0.0 Absolute Neutrophils (1.2-6.7) 10^3/uL 6.86 H Absolute Lymphocytes (1.2-3.4) 10^3/uL 2.17 Absolute Monocytes (0.1-0.8) 10^3/uL 1.23 H Absolute Eosinophils (0.0-0.7) 10^3/uL 0.22 Absolute Basophils (0.0-0.2) 10^3/uL 0.05 Sodium (136-145) mmol/L 143 Potassium (3.5-5.1) mmol/L 3.7 Chloride (98-107) mmol/L 102 Carbon Dioxide (21.0-32.0) mmol/L 31.9 Anion Gap (3-11) mmol/L 9.1 BUN (7-18) mg/dL 15 Creatinine (0.70-1.30) mg/dL 1.8 H Est GFR (CKD-EPI 2020) (mL/min/1.73m2) 51.61 Glucose (74-106) mg/dL 104 Calcium (8.5-10.1) mg/dL 9.0 Magnesium (1.8-2.4) mg/dL 2.1 Total Bilirubin (0.2-1.0) mg/dL 0.4 AST (15-37) U/L 19 ALT (16-63) U/L 29 Alkaline Phosphatase (46-116) U/L 123 H Total Protein (6.4-8.2) g/dL 7.9 Albumin (3.4-5.0) g/dL 3.6 Quality:SDOH Health Related Social Needs: Health related social needs transpo insecurity PFSH All Active Problems (Updated 09/03/23 @ 11:50 by Antoinette Templeton NP) Anxiety (Chronic) Arm pain (Acute) Hamstring tendinitis of left thigh (Acute) Pes anserine bursitis (Acute) Oral pain (Acute) Pain, dental (Acute) Hypomagnesemia (Acute) Hypokalemia (Acute) Dehydration (Acute) Hypocalcemia (Acute) Anxiety (Chronic) Pain in scrotum (Acute) Viral illness (Acute) Knee pain (Acute) Plantar fasciitis of left foot (Acute) Hypokalemia (Acute) Dehydration (Acute) Hypernatremia (Acute) Cervical radiculopathy (Acute) URI (upper respiratory infection) (Acute) Left-sided Flower's palsy (Acute) Neck pain on left side (Acute) Constipation (Acute) Grief reaction (Chronic) Opiate dependence, continuous (Acute) Cellulitis (Acute) Cholelithiases (Acute) 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 Possible 2' Methadone, Clnzpm (?). Surg eval (+)/No further action. CKD (chronic kidney disease) stage 2, GFR 60-89 ml/min (Acute) GFR 64-65, with Hx FLORESITA and GFR < 45 Complex medical condition (Chronic) Serious electrolyte imbalances, with gynecomastia, possible MEN Dx, CKD and anemia with baseline anxiety and Hx PTSD. History of electrolyte imbalance (Acute) Neck pain on left side (Acute) with shoulder, upper back pain.. torticollis, radiating into left hip/leg Pulmonary nodule 1 cm or greater in diameter (Chronic) Therapeutic opioid induced constipation (Acute) Sphincter of Oddi dysfunction (Chronic) Abnormal CT scan, kidney (Acute) Intrahepatic bile duct dilation (Acute) Common bile duct dilatation (Acute) Abdominal pain (Acute) Iatrogenic hypocalcemia (Acute) Multiple endocrine neoplasia type I (Chronic) Chronic constipation (Chronic) Primary hyperparathyroidism (Chronic) Depression (Chronic) Hypomagnesemia (Chronic) Hypocalcemia (Chronic) Depression (Chronic) Suicidal ideation (Acute) Elevated parathyroid hormone (Acute) Family history of coronary arteriosclerosis (Chronic) Father of DE at 50, mother had DE at 42 Severe anxiety with panic (Chronic) Cellulitis (Acute) Medical History Hypokalemia Hypocalcemia Anxiety Depression Hyperlipidemia Family history of multiple endocrine neoplasia, type 1 PTSD (post-traumatic stress disorder) Per pt. states no triggers at this time. Surgical History H/O parathyroidectomy Family History Mother Anxiety Asthma Depression Sister Anxiety Depression Father Cancer lung & stomach Depression Diabetes Hypertension MEN 1 (multiple endocrine neoplasia) Social History Smoking/Tobacco Use Status: Never Smoking risk assessment performed?: Yes Alcohol Intake: never Drug use: Rarely Substance use type: does not use and former substance user Adopted: No Caregiver/Support person: No Foster care: No Household members: none Housing: apartment Number of Children: 0 Communication Needs: None Education Level: high school Do you need help understanding health information?: Never 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 and animals: Yes (Ally) Pets and animals: dog(s) Sexually active: No Do you think of yourself as: straight/heterosexual Current gender identity: male What is your relationship status?: How often do you talk on the phone with friends or family?: twice per week How often do you get together with friends or relatives?: never Do you belong to any clubs or organized social groups?: no Panel score (0-1 are the most socially isolated patients): 0 What type of physical activity do you participate in: walking Duration: 15-30 minutes/day Frequency: 5-6 times per week Maryam/Zoroastrian: Evangelical Special maryam needs: No Seatbelt use: always Helmet use: Yes Helmet use: always Drive 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 putaway 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
[2023-09-03 11:12] LABS: Abs Immature Grans 0.06 10^3/uL (0.0-0.06); Absolute Basophil Count 0.05 10^3/uL (0.0-0.2); Absolute Eosinophil Count 0.22 10^3/uL (0.0-0.7); Absolute Lymphocyte Count 2.17 10^3/uL (1.2-3.4); Absolute Monocyte Count 1.23 10^3/uL (0.1-0.8); Absolute Neutrophil Count 6.86 10^3/uL (1.2-6.7); Basophils % 0.5; Eosinophils % 2.1; HGB 13.3 g/dL (13.5-17.5); Immature Grans % 0.6; Lymphocytes % 20.5; MCH 30.6 pg (27.0-33.0); MCHC 33.3 % (32.0-36.0); MCV 92 fL (80-95); MPV 10.1 fL (8.0-11.0); Monocytes % 11.6; Neutrophils % 64.7; Platelet Count 326 10^3/uL (130-400); RBC 4.35 10^6/uL (4.36-5.78); RDW 12.5 % (11.8-14.1); RDW-SD 41.6 fL; WBC 10.59 10^3/uL (4.4-10.8)
[2023-09-03 11:43] LABS: ALT 29 U/L (16-63); AST 19 U/L (15-37); Albumin 3.6 g/dL (3.4-5.0); Alkaline Phosphatase 123 U/L (46-116); Anion Gap 9.1 mmol/L (3-11); BUN 15 mg/dL (7-18); Bilirubin, Total 0.4 mg/dL (0.2-1.0); CO2 31.9 mmol/L (21.0-32.0); CREATININE 1.8 mg/dL (0.70-1.30); Chloride 102 mmol/L (98-107); Estimated GFR 51.61 (mL/min/1.73m2); Glucose 104 mg/dL (74-106); Magnesium 2.1 mg/dL (1.8-2.4); Potassium 3.7 mmol/L (3.5-5.1); Sodium 143 mmol/L (136-145); Total Protein 7.9 g/dL (6.4-8.2)
== END 2023-09-03 12:12 | disposition home or self-care (01) ==
PROVIDERS: Emergency Provider Registered Nurse Emergency; PCP Family Medicine
DX: M79.631 Pain in right forearm (principal); F41.9 Anxiety disorder, unspecified; E78.5 Hyperlipidemia, unspecified
CPT/HCPCS: 80053; 93005; 99285; 83735; 85025; 93010; 93971; 99284

== ENCOUNTER 2023-09-06 08:26 | Emergency (ER) | payer OTHER, SELFPAY ==
[2023-09-06 08:29] VITALS: BP 167/97; PULSE 130; RESP 18; TEMP 37.3; O2SAT 96
--- NOTE | 2023-09-06 08:30 | DI.CT_ITS ---
Exam(s) CT ABDOMEN PELVIS W EXAM: CT ABDOMEN PELVIS W CLINICAL HISTORY: RUQ abdominal pain, vomiting. TECHNIQUE: Imaging Protocol: Axial computed tomography images with coronal and sagittal reformatted images were created and reviewed CONTRAST MATERIAL: Intravenous: Omnipaque 350 Contrast volume:100 ml Oral: / no COMPARISON: US US ABDOMEN LIMITED from 06/09/[address] ABDOMEN PELVIS W from 06/20/2023 FINDINGS: ABDOMEN and PELVIS: Lung Bases: No acute findings. Liver: Normal density. No measurable mass. Gallbladder and biliary tract: No radiodense calculus or biliary dilation. Stones were noted on pr ior ultrasound. No gallbladder wall thickening or pericholecystic fluid. Gallbladder mildly distend ed. Pancreas: Normal density. No abnormal calcifications or inflammatory process. No evidence of mass. Spleen: Normal. Kidneys: Normal size, contour and axis. No radiodense stones. No obstructive uropathy. No suspicious masses seen. Adrenal glands: No masses seen. Vasculature: Abdominal aorta non-dilated. Soft tissues: Unremarkable. Bladder: No gross wall thickening. No calculi.No focal mass. Bowel: Large quantity of stool, greater distally. No obstruction. No bowel wall thickening. Append ix normal. Peritoneal cavity: No ascites. No focal collection or mesenteric inflammatory response. Bones: Unremarkable for age. Reproductive organs: Within normal limits. Lymph nodes: Unremarkable. IMPRESSION:: Increased stool consistent with constipation. Gallbladder is mildly distended. Stones were noted on prior ultrasound. No wall thickening or bilia ry dilatation. Ultrasound could be performed for further evaluation. RADIATION DOSE DELIVERED: Total DLP DATA REPOSITORY: All CT scans at this facility are submitted to the National Radiology Data Registry (NRDR) Dose Index Registry (DIR) with the [employer] (ACR). RADIATION OPTIMIZATION: All CT scans at this facility use at least one of these dose optimization te chniques: automated exposure control; mA and/or kV adjustment per patient size (includes targeted exa ms where dose is matched to clinical indication); or iterative reconstruction.
--- NOTE | 2023-09-06 08:32 | ED.GENADUL_ITS ---
Discharge Plan Disposition Patient Disposition: Home Condition: Stable Discharge Details Clinical Impression: Biliary colic, Dehydration Primary Care Provider: Brendon Vivar ED Provider: Richy Oakes Home Meds and New Rx's Prescriptions: New prochlorperazine maleate 5 mg tablet 5 mg PO TID PRN (Reason: acute nausea) Qty: 30 0RF Continued gabapentin 300 mg capsule 300 mg PO BID Qty: 180 3RF cyclobenzaprine 10 mg tablet 10 mg PO TID PRN (Reason: muscle spasm) Qty: 30 3RF clonazepam 1 mg tablet 1 mg PO BID Qty: 56 0RF methadone 10 mg/5 mL solution 105 mg PO QAM magnesium gluconate 27 mg magnesium (500 mg) tablet 27 mg PO BID Qty: 60 3RF calcitriol 0.5 mcg capsule 0.5 mcg PO BID Qty: 360 3RF Hold Instructions: Resume on 06/15/22. diclofenac sodium 1 % gel 4 g topical QID Qty: 100 6RF Rx Instructions: apply to single knee, ankle, foot; for foot includes sole/toes/top of foot polyethylene glycol 3350 17 gram/dose powder 17 g PO DAILY omeprazole 40 mg capsule,delayed release(DR/EC) 40 mg PO DAILY Qty: 90 3RF calcium carbonate [Tums] 200 mg calcium (500 mg) tablet,chewable 2,000 mg PO BID Hold Instructions: Resume on 05/12/23. Please hold your nightly dose tonight and your a.m. dose tomorrow morning. clindamycin HCl 150 mg capsule 150 mg PO TID Discharge Instructions Instructions: Prochlorperazine (By mouth), Dehydration (ED), Biliary Colic (ED) Additional Instructions: You were seen in the emergency department for your acute nausea and vomiting and failure to take p.o. nutrition and hydration. Your symptoms improved with IV Tylenol and and IV anti-inflammatory similar to ibuprofen. Please take regular doses of these medicines. I gave you a medicine called prochlorperazine and an antinausea medicine and your IV, I have sent a prescription for this medicine to [facility] in [place] to help with nausea and vomiting. Your kidneys are showing some signs of dehydration but improved on a recheck, please drink lots of fluids over the next few days to improve the health of your kidneys. [facility] general surgery will follow-up with you for an MRI of your biliary tree and gallbladder, please return for any severe increase in abdominal pain especially with nausea and vomiting especially with fever. Referrals: [facility] [Provider Group] Brendon Vivar DO [Primary Care Provider] - HPI General Date/Time Provider Initiated Documentation: 09/06/23 08:32 . HPI Narrative: 27 year-old male presents to ED today by POV/ambulating with a chief complaint of abdominal pain, nausea, vomiting, inability to tolerate PO intake after a dental surgery 6 days ago - had all his teeth extracted in preparation for dental implants, has kept some soft foods down intermittently over the 6 days, but having loose stools and diffuse abdominal pain. Quality described as cramping abdominal pain, no radiation to coffee-ground emesis, liquid diarrhea, shortness of breath, endorses chills/sweats, has some R-sided ribcage pain which has been frequent in the past, has history of RUQ abdominal pain with planned cholecystectomy that has been delayed until after this current surgery. Severity is described as 10/10, states he's never felt this bad in his life. Palliating factors include brief periods of remission after some BMs. Provoking factors include possibly nausea/vomiting from clindamycin. Patient not anticoagulated. Related Data Home Medications Medication Instructions Recorded Confirmed magnesium gluconate 27 mg 27 mg PO BID #60 tabs 11/08/22 09/06/23 magnesium (500 mg) tablet calcium carbonate 200 mg calcium 2,000 mg PO BID 02/02/23 09/06/23 (500 mg) chewable tablet (Tums) calcitriol 0.5 mcg capsule 0.5 mcg PO BID #360 caps 04/21/23 09/06/23 diclofenac sodium 1 % topical gel 4 g topical QID #100 grams 04/21/23 09/06/23 methadone 10 mg/5 mL oral solution 105 mg PO QAM 06/12/23 09/06/23 polyethylene glycol 3350 17 17 g PO DAILY 06/12/23 09/06/23 gram/dose oral powder gabapentin 300 mg capsule 300 mg PO BID #180 caps 06/23/23 09/06/23 omeprazole 40 mg capsule,delayed 40 mg PO DAILY #90 caps 07/21/23 09/06/23 release clonazepam 1 mg tablet 1 mg PO BID #56 tabs 08/18/23 09/06/23 cyclobenzaprine 10 mg tablet 10 mg PO TID PRN muscle spasm #30 08/18/23 09/06/23 tabs clindamycin HCl 150 mg capsule 150 mg PO TID 09/06/23 09/06/23 prochlorperazine maleate 5 mg 5 mg PO TID PRN acute nausea #30 09/06/23 tablet tabs Previous Rx's Medication Instructions Recorded magnesium gluconate 27 mg 27 mg PO BID #60 tabs 11/08/22 magnesium (500 mg) tablet calcitriol 0.5 mcg capsule 0.5 mcg PO BID #360 caps 04/21/23 diclofenac sodium 1 % topical gel 4 g topical QID #100 grams 04/21/23 gabapentin 300 mg capsule 300 mg PO BID #180 caps 06/23/23 omeprazole 40 mg capsule,delayed 40 mg PO DAILY #90 caps 07/21/23 release clonazepam 1 mg tablet 1 mg PO BID #56 tabs 08/18/23 cyclobenzaprine 10 mg tablet 10 mg PO TID PRN muscle spasm #30 08/18/23 tabs prochlorperazine maleate 5 mg 5 mg PO TID PRN acute nausea #30 09/06/23 tablet tabs Allergies Allergy/AdvReac Type Severity Reaction Status Date / Time codeine Allergy Intermediate pass out Verified 09/06/23 08:32 Penicillins Allergy Skin Rash Verified 09/06/23 08:32 amoxicillin AdvReac Intermediate Nausea Verified 09/06/23 08:32 dextromethorphan AdvReac Intermediate Other (See Verified 09/06/23 08:32 [From NyQuil] Comment) doxylamine [From NyQuil] AdvReac Intermediate Other (See Verified 09/06/23 08:32 Comment) pseudoephedrine [From NyQuil] AdvReac Intermediate Other (See Verified 09/06/23 08:32 Comment) General Stated Complaint: Nausea/Vomit/Diar ADRIANA: 3 Review of Systems All systems reviewed & are unremarkable except as noted in HPI and below Exam Narrative Exam Narrative: GENERAL APPEARANCE: Well-nourished, non-toxic, awake and alert, atraumatic, no acute distress. SKIN: Warm, pink, dry, intact, without rashes/lesions/ulcerations. HEAD: Normocephalic, atraumatic, normal hair distribution for gender/age. EYES: Pupils PERRLA, EOMs intact without nystagmus, normal conjunctiva, no exudates on lids/lashes. ENT: Nares patent, no circumoral cyanosis, no facial swelling, sutures in place to entire upper & lower gingiva, oral mucosa moist, uvula midline, no gingival abscesses/fluctant swelling seen, no trismus NECK: Supple, trachea midline, painless cervical ROM, no cervical lymphad enopathy LUNGS/CHEST: Lungs CTA bilaterally- no rhonchi/rales/wheezes diffusely, non- labored respirations, normal A/P diameter, symmetrical expansion, no chest wall deformity HEART (CV/PV): Regular rate and rhythm without murmur, no peripheral edema, no JVD. ABDOMEN: Normoactive bowel sounds, soft, non-distended, no guarding, RUQ tenderness without Cedillo's sign, LUQ tenderness, mild suprapubic tenderness, no Rovsing's, no McBurney's point tenderness. MSK: Normal ROM, no swelling/deformity to bilateral UEs or LEs, moving all extremities without weakness, no cyanosis, spine midline without tenderness, normal curvature. NEURO: Mental Status AAOx4 - alert to person, place, time, events No facial droop, no forehead involvement. Motor: No focal weakness - strength 5/5 in bilateral UEs and LEs, proximal and distal, symmetric. Sensory: sensation intact to light touch globally. Gait normal: patient ambulated without ataxia into ED room. PSYCH: euthymic, cooperative, pleasant, appropriate speech Course Vital Signs Vital signs: Vital Signs Temperature 37.3 C 09/06/23 08:29 Pulse 130 H 09/06/23 08:29 Respiratory Rate 18 09/06/23 08:29 Blood Pressure 167/97 H 09/06/23 08:29 Pulse Oximetry 96 09/06/23 08:29 Temperature 37.3 C 09/06/23 08:29 Temperature Source Oral 09/06/23 08:29 Pulse 130 H 09/06/23 08:29 Respiratory Rate 18 09/06/23 08:29 Blood Pressure 167/97 H 09/06/23 08:29 Blood Pressure Position Sitting 09/06/23 08:29 Pulse Oximetry 96 09/06/23 08:29 Oxygen Delivery Method Room Air 09/06/23 08:29 Oxygen Flow Rate 0 09/06/23 08:29 Pain Level 7 09/06/23 08:29 Medical Decision Making This dictation utilizes [id number] dictation software and may contain unedited grammatical errors. 27 y/o M presents to ED today with a chief complaint of intractable nausea/vomiting, loose stools, diffuse abdominal pain for the past 6 days. Patient had all his teeth extracted in preparation for dental implants, has sutures to upper and lower gingiva, making PO intake difficult- and has been taking clindamycin since last Friday (6 days ago) post-operatively. He has had very little PO intake and will vomit up the soft foods he has been attempting- he does have a history of biliary colic with planned surgery that has been defer red until healed from this dental surgery. Patient has complex medical history and is well-known to the department. Patients' medical history: history of electrolyte abnormalities, primary hyperparathyroidism - with parathyroidectomy, history of cholelithiasis with CBD dilatation, CKD stage II, gynecomastia, costochondritis, opiate dependence on methadone. Family and social history: former [employer] , lives independently. Pertinent exam findings / vital signs include diffuse abdominal pain most focal in the left upper and right upper quadrants, no McBurney's point tenderness, no Rovsing's, mild suprapubic tenderness, tenderness to the right rib cage, oral mucosa moist, sutures in place in upper and lower gingiva without visible abscess, lungs CTA, tachycardic. Differential / pathologies of concern include Biliary Colic, Gastroenteritis, Nausea & Vomiting as side effect of Clindamycin, Sepsis, Electrolyte Abnormality, Costochondritis, ACS. Diagnostic studies of: -CBC, CMP, CRP/ESR, lactate, procalcitonin, lipase, troponin, urinalysis, CT ABD/pelvis W contrast - Held Blood Cx's as the patient has been on clindamycin for 6 days. -CBC shows no leukocytosis, mild anemia -ESR 71, very elevated - CRP mild elev. -Lactate negative, Procal <0.1- do not suspect sepsis -CMP shows FLORESITA with SCr 1.9, baseline 1.3, LFTs WNL -Lipase WNL -Trop I negative, reliable onset -UA shows trace blood, non-specific, CKD stage II -CT shows distended gallbladder to 10cm, shows CBD dilatation to 11mm- last U/S here in shows CBD of 5mm > consulting Surgery, no U/S or MRCP availabil ity today. Past MRCP in 2021 has shown a CBD of 7mm, which is just above upper end of normal at 5.9mm, which is still a 4mm increase in a short timeframe. Interventions of: -2 L IV LR, IV Compazine, IV Tylenol and ketorolac. ED Course/Assessment/Plan: 27-year-old male presents with severe biliary colic and diffuse abdominal pain with intractable nausea and vomiting, on clindamycin post complete dental extractions upper and lower jaw, has long history of chronic gallbladder distention and CBD dilatation. CT showed a distended gallbladder and common bile duct but no elevated LFTs or bilirubin, I did consult with general surgery Dr. Clement who came in and saw the patient, his exam had significantly improved by this time and he was tolerating p.o. intake after Compazine, I did provide hi m an outpatient prescription for Compazine with strict return criteria for any increasing abdominal pain and further inability to tolerate p.o. intake especially with fever. The patient will follow-up with general surgery for an MRCP as an outpatient and likely continue with his plan for elective cholecystectomy at some point. Findings not consistent with common bile duct obstruction, choledocholithiasis, the patient is possibly passing gallstones but has no concerns for sepsis or other emergent abdominal pathology at this time. Disposition of biliary colic, dehydration. Patient verbalized understanding of the plan and return to ED criteria and engaged in shared decision making. Medical Records Medical records reviewed: Yes I reviewed the patient's medical records. Imaging Data Radiologic Study: Attestation: I personally reviewed and interpreted this imaging study as follows: Imaging: CT Scan Radiologist's impression: Exam(s) Addendum created by Mary Alcaraz MD on 09/06/2023 9:40:44 AM EDT: Addendum: Gallbladder is distended over 10 cm. No definite gallstones. No pericholecystic fluid. Common duct is dilated 11 mm. Questionable gallstone in the dependent portion of the gallbladder on series 4, image 26. Initial report created on 09/06/2023 9:27:12 AM EDT: PROCEDURE INFORMATION: Exam: CT Abdomen And Pelvis With Contrast Exam date and time: 09/06/2023 9:07 AM Age: 27 years old Clinical indication: Other: Ruq abdominal pain, vomiting TECHNIQUE: Imaging protocol: Computed tomography of the abdomen and pelvis with contrast. Radiation optimization: All CT scans at this facility use at least one of these dose optimization techniques: automated exposure control; mA and/or kV adjustment per patient size (includes targeted exams where dose is matched to clinical indication); or iterative reconstruction. Contrast material: OMNI 350; Contrast volume: 100 ml; Contrast route: INTRAVENOUS (IV); COMPARISON: CT ABDOMEN PELVIS W 06/20/2023 6:02 PM FINDINGS: Liver: Normal. No mass. Gallbladder and bile ducts: Gallbladder is distended.. Pancreas: Normal. No ductal dilation. Spleen: Normal. No splenomegaly. Adrenal glands: Normal. No mass. Kidneys and ureters: Normal. No hydronephrosis. Stomach and bowel: Constipation throughout the colon Appendix: Normal appendix Intraperitoneal space: Unremarkable. No free air. No significant fluid collection. Vasculature: Unremarkable. No abdominal aortic aneurysm. Lymph nodes: Unremarkable. No enlarged lymph nodes. Urinary bladder: Unremarkable as visualized. Reproductive: Unremarkable as visualized. Bones/joints: Unremarkable. No acute fracture. Soft tissues: Unremarkable. IMPRESSION: Gallbladder is distended.. Recommend gallbladder ultrasound if clinically indicated Dictated and Authenticated by: Mary Alcaraz MD. Ordering:RAMANA Lockhart MD Lab Data Lab results reviewed: Yes I reviewed the patient's lab results. Labs: Laboratory Tests Range/Units 09/06/23 09/06/23 09/06/23 08:45 08:45 09:29 WBC (4.4-10.8) 10^3/uL 8.60 RBC (4.36-5.78) 10^6/uL 4.08 L Hgb (13.5-17.5) g/dL 12.4 L Hct (40.0-50.0) % 36.9 L MCV (80-95) fL 90 MCH (27.0-33.0) pg 30.4 MCHC (32.0-36.0) % 33.6 RDW (11.8-14.1) % 12.2 Plt Count (130-400) 10^3/uL 328 MPV (8.0-11.0) fL 10.3 Immature Gran % 0.5 Neutrophils % 66.1 Lymphocytes % 19.3 Monocytes % 10.6 Eosinophils % 3.3 Basophils % 0.2 Nucleated RBC % (0.0-0.3) % 0.0 Absolute Neutrophils (1.2-6.7) 10^3/uL 5.69 Absolute Lymphocytes (1.2-3.4) 10^3/uL 1.66 Absolute Monocytes (0.1-0.8) 10^3/uL 0.91 H Absolute Eosinophils (0.0-0.7) 10^3/uL 0.28 Absolute Basophils (0.0-0.2) 10^3/uL 0.02 ESR (0-15) mm/hr 73 H VBG Lactate (0.6-1.4) mmol/L 1.4 Sodium (136-145) mmol/L 138 Potassium (3.5-5.1) mmol/L 3.9 Chloride (98-107) mmol/L 100 Carbon Dioxide (21.0-32.0) mmol/L 31.3 Anion Gap (3-11) mmol/L 6.7 BUN (7-18) mg/dL 17 Creatinine (0.70-1.30) mg/dL 1.9 H Est GFR (CKD-EPI 2020) (mL/min/1.73m2) 48.37 Glucose (74-106) mg/dL 121 H Calcium (8.5-10.1) mg/dL 11.5 H Magnesium (1.8-2.4) mg/dL 1.8 Total Bilirubin (0.2-1.0) mg/dL 0.4 AST (15-37) U/L 17 ALT (16-63) U/L 26 Alkaline Phosphatase (46-116) U/L 114 Troponin I (< or =60) ng/L < 50 Cancelled C-Reactive Protein (<or=0.5) mg/dL 1.81 H Total Protein (6.4-8.2) g/dL 7.9 Albumin (3.4-5.0) g/dL 3.2 L Lipase (16-77) U/L 24 Procalcitonin ng/mL < 0.1 Urine Color (Yellow) Yellow Urine Clarity (Clear) Clear Urine pH (5-8) 8.0 Ur Specific [place] (1.005-1.025) 1.015 Urine Protein (Neg-Trace) mg/dL Negative Urine Ketones (Negative) mg/dL Negative Urine Blood (Negative) Trace-intact H Urine Nitrite (Negative) Negative Urine Bilirubin (Negative) Negative Urine Urobilinogen (Up to 0.2) mg/dL 0.2 Ur Leukocyte Esterase (Negative) Negative Urine RBC (0-2) HPF 0-2 Urine WBC (0-5) HPF 0-2 Ur Epithelial Cells (Negative) HPF Few Urine Crystals (Negative) HPF Moderate Amorphous Urine Bacteria (Negative) HPF Negative Urine Casts (Negative) LPF 0-2 Hyaline Urine Mucus (Negative) Negative Ur Culture Indicated? No Urine Glucose (Negative) mg/dL Negative Quality:SDOH Health Related Social Needs: Health related social needs transpo insecurity PFSH All Active Problems (Updated 09/06/23 @ 13:03 by ANDREW Coleman) Dehydration (Acute) Biliary colic (Acute) Anxiety (Chronic) Arm pain (Acute) Hamstring tendinitis of left thigh (Acute) Pes anserine bursitis (Acute) Oral pain (Acute) Pain, dental (Acute) Hypomagnesemia (Acute) Hypokalemia (Acute) Dehydration (Acute) Hypocalcemia (Acute) Anxiety (Chronic) Pain in scrotum (Acute) Viral illness (Acute) Knee pain (Acute) Plantar fasciitis of left foot (Acute) Hypokalemia (Acute) Dehydration (Acute) Hypernatremia (Acute) Cervical radiculopathy (Acute) URI (upper respiratory infection) (Acute) Left-sided Flower's palsy (Acute) Neck pain on left side (Acute) Constipation (Acute) Grief reaction (Chronic) Opiate dependence, continuous (Acute) Cellulitis (Acute) Cholelithiases (Acute) 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 Possible 2' Methadone, Clnzpm (?). Surg eval (+)/No further action. CKD (chronic kidney disease) stage 2, GFR 60-89 ml/min (Acute) GFR 64-65, with Hx FLORESITA and GFR < 45 Complex medical condition (Chronic) Serious electrolyte imbalances, with gynecomastia, possible MEN Dx, CKD and anemia with baseline anxiety and Hx PTSD. History of electrolyte imbalance (Acute) Neck pain on left side (Acute) with shoulder, upper back pain.. torticollis, radiating into left hip/leg Pulmonary nodule 1 cm or greater in diameter (Chronic) Therapeutic opioid induced constipation (Acute) Sphincter of Oddi dysfunction (Chronic) Abnormal CT scan, kidney (Acute) Intrahepatic bile duct dilation (Acute) Common bile duct dilatation (Chronic) Abdominal pain (Acute) Iatrogenic hypocalcemia (Acute) Multiple endocrine neoplasia type I (Chronic) Chronic constipation (Chronic) Primary hyperparathyroidism (Chronic) Depression (Chronic) Hypomagnesemia (Chronic) Hypocalcemia (Chronic) Depression (Chronic) Suicidal ideation (Acute) Elevated parathyroid hormone (Acute) Family history of coronary arteriosclerosis (Chronic) Father of WA at 50, mother had WA at 42 Severe anxiety with panic (Chronic) Cellulitis (Acute) Medical History Hypokalemia Hypocalcemia Anxiety Depression Hyperlipidemia Family history of multiple endocrine neoplasia, type 1 PTSD (post-traumatic stress disorder) Per pt. states no triggers at this time. Surgical History H/O parathyroidectomy Family History Mother Anxiety Asthma Depression Sister Anxiety Depression Father Cancer lung & stomach Depression Diabetes Hypertension MEN 1 (multiple endocrine neoplasia) Social History Smoking/Tobacco Use Status: Never Smoking risk assessment performed?: Yes Alcohol Intake: never Drug use: Rarely Substance use type: does not use and former substance user Adopted: No Caregiver/Support person: No Foster care: No Household members: none Housing: apartment Number of Children: 0 Communication Needs: None Education Level: high school Do you need help understanding health information?: Never 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 and animals: Yes (Ally) Pets and animals: dog(s) Sexually active: No Do you think of yourself as: straight/heterosexual Current gender identity: male What is your relationship status?: How often do you talk on the phone with friends or family?: twice per week How often do you get together with friends or relatives?: never Do you belong to any clubs or organized social groups?: no Panel score (0-1 are the most socially isolated patients): 0 What type of physical activity do you participate in: walking Duration: 15-30 minutes/day Frequency: 5-6 times per week Maryam/Yazidi: Worship Special maryam needs: No Seatbelt use: always Helmet use: Yes Helmet use: always Drive 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 wheelchair 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
[2023-09-06 08:43] VITALS: PULSE 103; RESP 20; TEMP 37.6; O2SAT 98
[2023-09-06 08:49] VITALS: BP 130/74
[2023-09-06 08:56] LABS: Lactate 1.4 mmol/L (0.6-1.4)
[2023-09-06 08:57] LABS: Abs Immature Grans 0.04 10^3/uL (0.0-0.06); Absolute Basophil Count 0.02 10^3/uL (0.0-0.2); Absolute Eosinophil Count 0.28 10^3/uL (0.0-0.7); Absolute Lymphocyte Count 1.66 10^3/uL (1.2-3.4); Absolute Monocyte Count 0.91 10^3/uL (0.1-0.8); Absolute Neutrophil Count 5.69 10^3/uL (1.2-6.7); Basophils % 0.2; Eosinophils % 3.3; HCT 36.9 % (40.0-50.0); HGB 12.4 g/dL (13.5-17.5); Immature Grans % 0.5; Lymphocytes % 19.3; MCH 30.4 pg (27.0-33.0); MCHC 33.6 % (32.0-36.0); MCV 90 fL (80-95); MPV 10.3 fL (8.0-11.0); Monocytes % 10.6; Neutrophils % 66.1; Platelet Count 328 10^3/uL (130-400); RBC 4.08 10^6/uL (4.36-5.78); RDW 12.2 % (11.8-14.1); RDW-SD 40.6 fL
[2023-09-06 08:59] LABS: ESR 73 mm/hr (0-15)
[2023-09-06] MEDS: Ketorolac 15 MG/ML VIAL IVP (09:00)
[2023-09-06] MEDS: Prochlorperazine 10 MG/2 ML VIAL 5 MG IVP (09:01)
[2023-09-06] MEDS: Lactated Ringers 1,000 ML 1000 ML IV ×2 (09:04→11:14)
[2023-09-06] MEDS: ACETAMINOPHEN 1,000 MG/100 ML BTL 400 MG IVPB (09:04)
[2023-09-06] MEDS: Normal Saline - Diluent 50 ML VIAL IJ (09:10)
[2023-09-06] MEDS: Omnipaque 350 MG/ML 100 ML BTL IJ (09:12)
[2023-09-06 09:14] LABS: ALT 26 U/L (16-63); AST 17 U/L (15-37); Albumin 3.2 g/dL (3.4-5.0); Alkaline Phosphatase 114 U/L (46-116); Anion Gap 6.7 mmol/L (3-11); BUN 17 mg/dL (7-18); Bilirubin, Total 0.4 mg/dL (0.2-1.0); C-Reactive Protein 1.81 mg/dL (<or=0.5); CO2 31.3 mmol/L (21.0-32.0); CREATININE 1.9 mg/dL (0.70-1.30); Calcium 11.5 mg/dL (8.5-10.1); Chloride 100 mmol/L (98-107); Estimated GFR 48.37 (mL/min/1.73m2); Glucose 121 mg/dL (74-106); Lipase 24 U/L (16-77); Magnesium 1.8 mg/dL (1.8-2.4); Potassium 3.9 mmol/L (3.5-5.1); Sodium 138 mmol/L (136-145); Total Protein 7.9 g/dL (6.4-8.2); Troponin I < 50 ng/L (< or =60)
--- NOTE | 2023-09-06 09:28 | DI.VRAD_ITS ---
Addendum created by Mary Alcaraz MD on 09/06/2023 9:40:44 AM EDT: Addendum: Gallbladder is distended over 10 cm. No definite gallstones. No pericholecystic fluid. Common duct is dilated 11 mm. Questionable gallstone in the dependent portion of the gallbladder on series 4, image 26. Initial report created on 09/06/2023 9:27:12 AM EDT: PROCEDURE INFORMATION: Exam: CT Abdomen And Pelvis With Contrast Exam date and time: 09/06/2023 9:07 AM Age: 27 years old Clinical indication: Other: Ruq abdominal pain, vomiting TECHNIQUE: Imaging protocol: Computed tomography of the abdomen and pelvis with contrast. Radiation optimization: All CT scans at this facility use at least one of these dose optimization techniques: automated exposure control; mA and/or kV adjustment per patient size (includes targeted exams where dose is matched to clinical indication); or iterative reconstruction. Contrast material: OMNI 350; Contrast volume: 100 ml; Contrast route: INTRAVENOUS (IV); COMPARISON: CT ABDOMEN PELVIS W 06/20/2023 6:02 PM FINDINGS: Liver: Normal. No mass. Gallbladder and bile ducts: Gallbladder is distended.. Pancreas: Normal. No ductal dilation. Spleen: Normal. No splenomegaly. Adrenal glands: Normal. No mass. Kidneys and ureters: Normal. No hydronephrosis. Stomach and bowel: Constipation throughout the colon Appendix: Normal appendix Intraperitoneal space: Unremarkable. No free air. No significant fluid collection. Vasculature: Unremarkable. No abdominal aortic aneurysm. Lymph nodes: Unremarkable. No enlarged lymph nodes. Urinary bladder: Unremarkable as visualized. Reproductive: Unremarkable as visualized. Bones/joints: Unremarkable. No acute fracture. Soft tissues: Unremarkable. IMPRESSION: Gallbladder is distended.. Recommend gallbladder ultrasound if clinically indicated Dictated and Authenticated by: Mary Alcaraz MD. Ordering:RAMANA Lockhart MD
[2023-09-06 09:32] LABS: Procalcitonin < 0.1 ng/mL
[2023-09-06 09:35] LABS: Bilirubin Negative (Negative); Blood Trace-intact (Negative); Clarity Clear (Clear); Glucose Negative (Negative); Ketones Negative (Negative); Leukocyte Esterase Negative (Negative); Nitrite Negative (Negative); Specific Gravity 1.015 (1.005-1.025); Urobilinogen 0.2 mg/dL (Up to 0.2)
[2023-09-06 09:43] LABS: Bacteria Negative HPF (Negative); C & S Indicated? No; Casts 0-2 Hyaline LPF (Negative); Crystals Moderate Amorphous HPF (Negative); Epithelial Cells Few HPF (Negative); Mucus Negative (Negative); RBC 0-2 HPF (0-2); WBC 0-2 HPF (0-5)
[2023-09-06 10:16] VITALS: BP 125/72; PULSE 68; RESP 16; TEMP 36.5; O2SAT 98
--- NOTE | 2023-09-06 10:41 | W.SURGCON ---
Date of service: 09/06/23 Time of Service: 10:42 Assessment and Plan Assessment and plan (1) Common bile duct dilatation: Status: Chronic Assessment and plan: 27 yo man with chronic bile duct and gallbladder conditions. This may be an acute exacerbation of what is a very chronic process that is clearly documented and outlined in the medical records. Overall, my sense is that this is just a chronic issue that continues to be an issue. (13 CT scans in two years is almost not-believable for a 27 year old) He has been offered surgery before and has cancelled scheduled surgery. He has a scheduled office appointment in the next couple of weeks with Dr. Pulido. His vital signs are normal. He does not have fevers. CT scan does NOT show gallbladder wall thickening or pericholecystic fluid. It is reported to be distended, but gallbladder distention has been seen on some of the other CT scans (13 in two years) and MRIs. He does not require emergency surgery at this time though I could almost guarantee that he has some form of chronic cholecystitis from the chart history alone. He definitely should have his gallbladder removed in my opinion, but there is really no acute changes to his chronic condition and I don't think he needs emergency admission over this particular weekend. No white count(and no shift), no fevers, hemodynamically stable, normal Alk Phos, normal transaminases and normal bilirubin. Considering his bile duct is dilated at 11mm, he should probably get another MRCP to assess if he has intra-ductal debris. He certainly isn't obstructed with a normal bilirubin and the acuity of today's presentation is 6 days according to the patient himself. The MRCP can be done this upcoming week and a scheduled basis. His bile duct system has been dilated over a year on imaging and this imaging can safely wait until Friday in the setting of completely normal liver and inflammatory labwork and hemodynamic stability. Depending on those results, he may need an ERCP prior to elective or semi-elective gallbladder surgery. I think his gallbladder surgery should be re-scheduled, AFTER MRI imaging clears his ductal system. I counseled him to keep his follow-up appointment with Dr. Pulido. I'm not sure that his elevated creatinine, in the setting of documented CKD, reflects FLORESITA. His labwork and clinical presentation does not appear consistent with dehydration so I'm not sure why he would have FLORESITA. He creatinine has been elevated in the past and was elevated 3 days ago with no significant change. If he requires medical admission for these reasons, I defer to the hospitalist and ER provider to make that call. Most importantly, if the patient returns to the ER at some future point in time, it seems obvious to me that he does NOT need another CT scan and SHOULD NOT get another CT scan for the same complaints/issues. Overall plan: Outpatient MRCP Office follow-up in the next couple weeks History of Present Illness Narrative: Called by ER provider on this patient who presents acutely on this Friday morning for abdominal pain, nausea and vomiting. Reportedly this has been going on for 6 days this time. The patient had a CT scan this morning that shows a dilated common bile duct. He has a normal bilirubin. Normal Alk Phos. Normal WBC. He has had 13 CT scans of the Abdomen and Pelvis in the last 24 months. He has had prior MRCP of the bile-duct system. His MRCP was over 1 year ago and showed dilated bile ducts at that time. He has had CT scans in the last 6 months which show dilated bile ducts. He has had prior laparoscopic cholecystectomy both recommended and scheduled and he canceled the surgery. He has chronic kidney disease documented as well as a significant amount of other medical problems. He has a pain disorder documented and has a history of dependance on opiate pain medications compounding the chronic conditions he struggles with. At bedside today, when I visited with him, he says he feels fine now. The pain he was having is gone. He is not really interested in staying in the hospital and is hoping to go home shortly. He has food beside him and has been eating it. We talked about his upcoming plans for his gallbladder and he says he was really happy with his meeting with Dr. Pulido and is hoping to see him again in September to coordinate his surgery. [facility] All Active Problems (Updated 09/06/23 @ 13:03 by ANDREW Coleman) Dehydration (Acute) Biliary colic (Acute) Anxiety (Chronic) Arm pain (Acute) Hamstring tendinitis of left thigh (Acute) Pes anserine bursitis (Acute) Oral pain (Acute) Pain, dental (Acute) Hypomagnesemia (Acute) Hypokalemia (Acute) Dehydration (Acute) Hypocalcemia (Acute) Anxiety (Chronic) Pain in scrotum (Acute) Viral illness (Acute) Knee pain (Acute) Plantar fasciitis of left foot (Acute) Hypokalemia (Acute) Dehydration (Acute) Hypernatremia (Acute) Cervical radiculopathy (Acute) URI (upper respiratory infection) (Acute) Left-sided Flower's palsy (Acute) Neck pain on left side (Acute) Constipation (Acute) Grief reaction (Chronic) Opiate dependence, continuous (Acute) Cellulitis (Acute) Cholelithiases (Acute) 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 Left arm numbness (Acute) Gynecomastia, male (Acute) b/l, per CT (Jul 2022).. Possible 2' Methadone, Clnzpm (?). Surg eval (+)/No further action. CKD (chronic kidney disease) stage 2, GFR 60-89 ml/min (Acute) GFR 64-65, with Hx FLORESITA and GFR < 45 Complex medical condition (Chronic) Serious electrolyte imbalances, with gynecomastia, possible MEN Dx, CKD and anemia with baseline anxiety and Hx PTSD. History of electrolyte imbalance (Acute) Neck pain on left side (Acute) with shoulder, upper back pain.. torticollis, radiating into left hip/leg Pulmonary nodule 1 cm or greater in diameter (Chronic) Therapeutic opioid induced constipation (Acute) Sphincter of Oddi dysfunction (Chronic) Abnormal CT scan, kidney (Acute) Intrahepatic bile duct dilation (Acute) Common bile duct dilatation (Chronic) Abdominal pain (Acute) Iatrogenic hypocalcemia (Acute) Multiple endocrine neoplasia type I (Chronic) Chronic constipation (Chronic) Primary hyperparathyroidism (Chronic) Depression (Chronic) Hypomagnesemia (Chronic) Hypocalcemia (Chronic) Depression (Chronic) Suicidal ideation (Acute) Elevated parathyroid hormone (Acute) Family history of coronary arteriosclerosis (Chronic) Father of MA at 50, mother had MA at 42 Severe anxiety with panic (Chronic) Cellulitis (Acute) Medical History Hypokalemia Hypocalcemia Anxiety Depression Hyperlipidemia Family history of multiple endocrine neoplasia, type 1 PTSD (post-traumatic stress disorder) Per pt. states no triggers at this time. Surgical History H/O parathyroidectomy Family History Mother Anxiety Asthma Depression Sister Anxiety Depression Father Cancer lung & stomach Depression Diabetes Hypertension MEN 1 (multiple endocrine neoplasia) Social History Smoking/Tobacco Use Status: Never Smoking risk assessment performed?: Yes Alcohol Intake: never Drug use: Rarely Substance use type: does not use and former substance user Adopted: No Caregiver/Support person: No Foster care: No Household members: none Housing: apartment Number of Children: 0 Communication Needs: None Education Level: high school Do you need help understanding health information?: Never 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 and animals: Yes (Ally) Pets and animals: dog(s) Sexually active: No Do you think of yourself as: straight/heterosexual Current gender identity: male What is your relationship status?: How often do you talk on the phone with friends or family?: twice per week How often do you get together with friends or relatives?: never Do you belong to any clubs or organized social groups?: no Panel score (0-1 are the most socially isolated patients): 0 What type of physical activity do you participate in: walking Duration: 15-30 minutes/day Frequency: 5-6 times per week Maryam/Cheondoism: Jainism Special maryam needs: No Seatbelt use: always Helmet use: Yes Helmet use: always 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 Neuro: Alert and oriented x 3 Psych: Reasonable mood and affect, seemingly good insight and understanding Chest: Nonlabored breathing Heart: Regular Abdomen: Soft, nondistended and nontender. There is no Cedillo sign. Results Last Vital Signs Temp 97.7 F 09/06/23 10:16 Pulse 68 09/06/23 10:16 Resp 16 09/06/23 10:16 BP 125/72 09/06/23 10:16 Pulse Ox 98 09/06/23 10:16 Labs 09/06/23 08:45 09/06/23 12:41 Labs: Laboratory Results - last 24 hr 09/06/23 09/06/23 09/06/23 08:45 08:45 09:29 WBC 8.60 RBC 4.08 L Hgb 12.4 L Hct 36.9 L MCV 90 MCH 30.4 MCHC 33.6 RDW 12.2 Plt Count 328 MPV 10.3 Immature Gran % 0.5 Neutrophils % 66.1 Lymphocytes % 19.3 Monocytes % 10.6 Eosinophils % 3.3 Basophils % 0.2 Nucleated RBC % 0.0 Absolute Neutrophils 5.69 Absolute Lymphocytes 1.66 Absolute Monocytes 0.91 H Absolute Eosinophils 0.28 Absolute Basophils 0.02 ESR 73 H VBG Lactate 1.4 Sodium 138 Potassium 3.9 Chloride 100 Carbon Dioxide 31.3 Anion Gap 6.7 BUN 17 Creatinine 1.9 H Est GFR (CKD-EPI 2020) 48.37 Glucose 121 H Calcium 11.5 H Magnesium 1.8 Total Bilirubin 0.4 AST 17 ALT 26 Alkaline Phosphatase 114 Troponin I < 50 Cancelled C-Reactive Protein 1.81 H Total Protein 7.9 Albumin 3.2 L Lipase 24 Procalcitonin < 0.1 Urine Color Yellow Urine Clarity Clear Urine pH 8.0 Ur Specific [place] 1.015 Urine Protein Negative Urine Ketones Negative Urine Blood Trace-intact H Urine Nitrite Negative Urine Bilirubin Negative Urine Urobilinogen 0.2 Ur Leukocyte Esterase Negative Urine RBC 0-2 Urine WBC 0-2 Ur Epithelial Cells Few Urine Crystals Moderate Amorphous Urine Bacteria Negative Urine Casts 0-2 Hyaline Urine Mucus Negative Ur Culture Indicated? No Urine Glucose Negative
[2023-09-06 10:57] VITALS: PULSE 79
[2023-09-06 12:58] LABS: Anion Gap 3.7 mmol/L (3-11); BUN 15 mg/dL (7-18); CO2 32.3 mmol/L (21.0-32.0); CREATININE 1.7 mg/dL (0.70-1.30); Calcium 10.4 mg/dL (8.5-10.1); Chloride 103 mmol/L (98-107); Estimated GFR 55.27 (mL/min/1.73m2); Glucose 103 mg/dL (74-106); Potassium 4.4 mmol/L (3.5-5.1); Sodium 139 mmol/L (136-145)
[2023-09-06 13:14] VITALS: BP 120/78; PULSE 78; RESP 14; TEMP 37.2; O2SAT 98
== END 2023-09-06 13:13 | disposition home or self-care (01) ==
PROVIDERS: Emergency Provider Physician Assistant; PCP Family Medicine
DX: R10.9 Unspecified abdominal pain (principal); R11.0 Nausea; E86.0 Dehydration; R19.7 Diarrhea, unspecified; K80.50 Calculus of bile duct without cholangitis or cholecystitis without obstruction
CPT/HCPCS: 00123; 80048; 80053; 83690; 84145; 85652; 96361; 96365; 96375; 99285; 74177; 81003; 81015; 83605; 83735; 84484; 85025; 86140; 99283; J0131; J0780; J1885; J3490

== ENCOUNTER 2023-09-08 10:58 | Emergency (ER) | payer OTHER, SELFPAY ==
[2023-09-08 11:01] VITALS: BP 151/80; PULSE 130; RESP 18; TEMP 36.7; O2SAT 99
--- NOTE | 2023-09-08 11:29 | W.ED.GENAD ---
Discharge Plan Discharge Details Chief Complaint: Abd Prob Primary Care Provider: Brendon Vivar ED Provider: Ricardo Crabtree Home Meds and New Rx's Prescriptions: No Action gabapentin 300 mg capsule 300 mg PO BID Qty: 180 3RF cyclobenzaprine 10 mg tablet 10 mg PO TID PRN (Reason: muscle spasm) Qty: 30 3RF clonazepam 1 mg tablet 1 mg PO BID Qty: 56 0RF methadone 10 mg/5 mL solution 105 mg PO QAM magnesium gluconate 27 mg magnesium (500 mg) tablet 27 mg PO BID Qty: 60 3RF calcitriol 0.5 mcg capsule 0.5 mcg PO BID Qty: 360 3RF Hold Instructions: Resume on 06/15/22. diclofenac sodium 1 % gel 4 g topical QID Qty: 100 6RF Rx Instructions: apply to single knee, ankle, foot; for foot includes sole/toes/top of foot polyethylene glycol 3350 17 gram/dose powder 17 g PO DAILY omeprazole 40 mg capsule,delayed release(DR/EC) 40 mg PO DAILY Qty: 90 3RF calcium carbonate [Tums] 200 mg calcium (500 mg) tablet,chewable 2,000 mg PO BID Hold Instructions: Resume on 05/12/23. Please hold your nightly dose tonight and your a.m. dose tomorrow morning. clindamycin HCl 150 mg capsule 150 mg PO TID prochlorperazine maleate 5 mg tablet 5 mg PO TID PRN (Reason: acute nausea) Qty: 30 0RF HPI General Mode of arrival: ambulatory. Date/Time Provider Initiated Documentation: 09/08/23 10:58. Limitations to Documentation: no limitations. Information obtained by: patient. History of Present Illness 27 year old M presents to the emergency department with the chief complaint of Abdominal pain, described as moderate, Patient started experiencing this day(s) (2) and it has been constant. No relieving factors improve symptom(s), No exacerbating factors reported . Patient notes denies chest pain and fever/chills. Patient did receive the following treatments prior to arrival, none Related Data Home Medications Medication Instructions Recorded Confirmed magnesium gluconate 27 mg 27 mg PO BID #60 tabs 11/08/22 09/08/23 magnesium (500 mg) tablet calcium carbonate 200 mg calcium 2,000 mg PO BID 02/02/23 09/08/23 (500 mg) chewable tablet (Tums) calcitriol 0.5 mcg capsule 0.5 mcg PO BID #360 caps 04/21/23 09/08/23 diclofenac sodium 1 % topical gel 4 g topical QID #100 grams 04/21/23 09/08/23 methadone 10 mg/5 mL oral solution 105 mg PO QAM 06/12/23 09/08/23 polyethylene glycol 3350 17 17 g PO DAILY 06/12/23 09/08/23 gram/dose oral powder gabapentin 300 mg capsule 300 mg PO BID #180 caps 06/23/23 09/08/23 omeprazole 40 mg capsule,delayed 40 mg PO DAILY #90 caps 07/21/23 09/08/23 release clonazepam 1 mg tablet 1 mg PO BID #56 tabs 08/18/23 09/08/23 cyclobenzaprine 10 mg tablet 10 mg PO TID PRN muscle spasm #30 08/18/23 09/08/23 tabs clindamycin HCl 150 mg capsule 150 mg PO TID 09/06/23 09/08/23 prochlorperazine maleate 5 mg 5 mg PO TID PRN acute nausea #30 09/06/23 09/08/23 tablet tabs Previous Rx's Medication Instructions Recorded magnesium gluconate 27 mg 27 mg PO BID #60 tabs 11/08/22 magnesium (500 mg) tablet calcitriol 0.5 mcg capsule 0.5 mcg PO BID #360 caps 04/21/23 diclofenac sodium 1 % topical gel 4 g topical QID #100 grams 04/21/23 gabapentin 300 mg capsule 300 mg PO BID #180 caps 06/23/23 omeprazole 40 mg capsule,delayed 40 mg PO DAILY #90 caps 07/21/23 release clonazepam 1 mg tablet 1 mg PO BID #56 tabs 08/18/23 cyclobenzaprine 10 mg tablet 10 mg PO TID PRN muscle spasm #30 08/18/23 tabs prochlorperazine maleate 5 mg 5 mg PO TID PRN acute nausea #30 09/06/23 tablet tabs Allergies Allergy/AdvReac Type Severity Reaction Status Date / Time codeine Allergy Intermediate pass out Verified 09/08/23 11:04 Penicillins Allergy Skin Rash Verified 09/08/23 11:04 amoxicillin AdvReac Intermediate Nausea Verified 09/08/23 11:04 dextromethorphan AdvReac Intermediate Other (See Verified 09/08/23 11:04 [From NyQuil] Comment) doxylamine [From NyQuil] AdvReac Intermediate Other (See Verified 09/08/23 11:04 Comment) pseudoephedrine [From NyQuil] AdvReac Intermediate Other (See Verified 09/08/23 11:04 Comment) General Stated Complaint: Abd Prob ADRIANA: 3 Review of Systems All systems reviewed & are unremarkable except as noted in HPI and below Constitutional Constitutional: Denies chills, Denies fever(s) and Denies weakness Cardiovascular Cardiovascular: Denies chest pain and Denies dyspnea Respiratory Respiratory: Denies cough and Denies dyspnea Gastrointestinal Gastrointestinal: Reports abdominal pain, Reports nausea and Denies vomiting Musculoskeletal Musculoskeletal: Denies joint swelling Integumentary/Breasts Skin/Breast: Denies rash Neurologic Neurologic: Denies weakness Exam Const General: no acute distress Orientation: alert HENMT Head: normal to inspection Ears: external ears normal General nose exam: external nose normal Mouth: moist mucous membranes Eyes General: appearance normal, both eyes and all related structures Neck Neck: normal visual inspection Resp Effort & Inspection: normal respiratory effort and able to speak in complete sentences Cardio Rate: regular rate GI Palpation: soft and tender Skin General skin exam: no rashes or lesions noted Neuro General: patient alert and patient oriented x3 Extrem General: normal to inspection Psych Mental Status: mental status grossly normal Course Vital Signs Vital signs: Vital Signs Temperature 36.7 C 09/08/23 11:01 Pulse 130 H 09/08/23 11:01 Respiratory Rate 18 09/08/23 11:01 Blood Pressure 151/80 H 09/08/23 11:01 Pulse Oximetry 99 09/08/23 11:01 Temperature 36.7 C 09/08/23 11:01 Temperature Source Oral 09/08/23 11:01 Pulse 130 H 09/08/23 11:01 Respiratory Rate 18 09/08/23 11:01 Respiratory Effort Normal 09/08/23 11:05 Blood Pressure 151/80 H 09/08/23 11:01 Blood Pressure Position Sitting 09/08/23 11:01 Pulse Oximetry 99 09/08/23 11:01 Oxygen Delivery Method Room Air 09/08/23 11:01 Oxygen Flow Rate 0 09/08/23 11:01 Pain Level 5 09/08/23 11:05 Medical Decision Making 27-year-old male with multiple presentations to the ED for various complaints, 2 days ago was here for abdominal pain and had a CT which showed a distended gallbladder, comes in with continued upper abdominal pain. Denies any fevers, chills, vomiting has had some nausea. He is alert and oriented on arrival, his abdomen is soft does have some tenderness in the right upper quadrant but negative Cedillo sign. He has had multiple CT abdomen pelvis recently and his exam is not consistent with an acute surgical abnormality, will check CBC, CMP, lipase and treat with IV fluids and droperidol and reassess. Patient eloped prior to having lab work and imaging studies, I was able to confirm that we would be able to get an MRCP which is with the general surgeon who saw him 2 days ago recommended this week. Patient eloped prior to finding this out, he had decision-making capacity was clinically sober while here, he has follow-up with general surgery, attempted to call with no answer. He notes that he has follow-up with his primary care provider Differential Diagnosis Differential Diagnosis: Psychosomatic pain, cholecystitis Medical Records Medical records reviewed: Yes I reviewed the patient's medical records. Lab Data Lab results reviewed: Yes I reviewed the patient's lab results. Quality:SDOH Health Related Social Needs: Health related social needs transpo insecurity PFSH All Active Problems (Updated 09/07/23 @ 16:12 by Emerson Clement MD) Dehydration (Acute) Biliary colic (Acute) Anxiety (Chronic) Arm pain (Acute) Hamstring tendinitis of left thigh (Acute) Pes anserine bursitis (Acute) Oral pain (Acute) Pain, dental (Acute) Hypomagnesemia (Acute) Hypokalemia (Acute) Dehydration (Acute) Hypocalcemia (Acute) Anxiety (Chronic) Pain in scrotum (Acute) Viral illness (Acute) Knee pain (Acute) Plantar fasciitis of left foot (Acute) Hypokalemia (Acute) Dehydration (Acute) Hypernatremia (Acute) Cervical radiculopathy (Acute) URI (upper respiratory infection) (Acute) Left-sided Flower's palsy (Acute) Neck pain on left side (Acute) Constipation (Acute) Grief reaction (Chronic) Opiate dependence, continuous (Acute) Cellulitis (Acute) Cholelithiases (Acute) 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 Left arm numbness (Acute) Gynecomastia, male (Acute) b/l, per CT (Jul 2022).. Possible 2' Methadone, Clnzpm (?). Surg eval (+)/No further action. CKD (chronic kidney disease) stage 2, GFR 60-89 ml/min (Acute) GFR 64-65, with Hx FLORESITA and GFR < 45 Complex medical condition (Chronic) Serious electrolyte imbalances, with gynecomastia, possible MEN Dx, CKD and anemia with baseline anxiety and Hx PTSD. History of electrolyte imbalance (Acute) Neck pain on left side (Acute) with shoulder, upper back pain.. torticollis, radiating into left hip/leg Pulmonary nodule 1 cm or greater in diameter (Chronic) Therapeutic opioid induced constipation (Acute) Sphincter of Oddi dysfunction (Chronic) Abnormal CT scan, kidney (Acute) Intrahepatic bile duct dilation (Acute) Common bile duct dilatation (Chronic) Has been dilated for quite some time, now more-so. Normal LFTs. Known gallstones. Abdominal pain (Acute) Iatrogenic hypocalcemia (Acute) Multiple endocrine neoplasia type I (Chronic) Chronic constipation (Chronic) Primary hyperparathyroidism (Chronic) Depression (Chronic) Hypomagnesemia (Chronic) Hypocalcemia (Chronic) Depression (Chronic) Suicidal ideation (Acute) Elevated parathyroid hormone (Acute) Family history of coronary arteriosclerosis (Chronic) Father of MA at 50, mother had MA at 42 Severe anxiety with panic (Chronic) Cellulitis (Acute) Medical History Hypokalemia Hypocalcemia Anxiety Depression Hyperlipidemia Family history of multiple endocrine neoplasia, type 1 PTSD (post-traumatic stress disorder) Per pt. states no triggers at this time. Surgical History H/O parathyroidectomy Family History Mother Anxiety Asthma Depression Sister Anxiety Depression Father Cancer lung & stomach Depression Diabetes Hypertension MEN 1 (multiple endocrine neoplasia) Social History Smoking/Tobacco Use Status: Never Smoking risk assessment performed?: Yes Alcohol Intake: never Drug use: Rarely Substance use type: does not use and former substance user Adopted: No Caregiver/Support person: No Foster care: No Household members: none Housing: apartment Number of Children: 0 Communication Needs: None Education Level: high school Do you need help understanding health information?: Never 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 and animals: Yes (Ally) Pets and animals: dog(s) Sexually active: No Do you think of yourself as: straight/heterosexual Current gender identity: male What is your relationship status?: How often do you talk on the phone with friends or family?: twice per week How often do you get together with friends or relatives?: never Do you belong to any clubs or organized social groups?: no Panel score (0-1 are the most socially isolated patients): 0 What type of physical activity do you participate in: walking Duration: 15-30 minutes/day Frequency: 5-6 times per week Maryam/Baptist: Pentecostal Special maryam needs: No Seatbelt use: always Helmet use: Yes Helmet use: always 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
== END 2023-09-08 11:49 | disposition left against medical advice (07) ==
LOC: ER 11:54
PROVIDERS: Emergency Provider Emergency Medicine; PCP Family Medicine
DX: Z53.21 Procedure and treatment not carried out due to patient leaving prior to being seen by health care provider (principal)
CPT/HCPCS: 80053; 83690; 82248; 83735; 85025

== ENCOUNTER → 2023-09-10 01:14 | Outpatient (CLI) | payer MEDICAID, SELFPAY ==
--- NOTE | 2023-09-10 11:45 | DI.MRI_ITS ---
Exam(s) MR ABDOMEN WO EXAM: MR ABDOMEN WO CLINICAL HISTORY: COMMON BILE DUCT [id number],?CBD DEBRIS,NEED BEFORE ERCP AND SURGERY TECHNIQUE: Multiplanar multisequence MRI of the Abdomen was performed. MRCP sequences also performed. COMPARISON: US US ABDOMEN LIMITED from 03/07/2022 MR MR ABDOMEN WO from 05/15/2022 US US UPPER EXTREMITY VENOUS RT from 09/03/[address] ABDOMEN PELVIS W from 09/06/2023 FINDINGS: Liver: Unremarkable. Gallbladder: Multiple small layering stones noted in gallbladder. No gallbladder wall thickening. S table mild biliary dilatation, with the common bile duct measuring 8 millimeters in the head of the p ancreas. Appears tapered distally. No visible obstructing stone. Bile Ducts: Unremarkable. Pancreas: Unremarkable. Adrenals: Unremarkable. Kidneys: Stable small cysts. Spleen: Unremarkable. Aorta: Unremarkable. Soft Tissues: Unremarkable. Bone: Unremarkable. Lymph Nodes: Unremarkable. Mesentery: No ascites. No focal fluid collection. Bowel: No abnormal dilatation or wall thickening. IMPRESSION: Stable appearance of colon lithiasis and mildly dilated common bile duct measuring 8 millimeters. No obstructing stone. DATA REPOSITORY:
== END ==
PROVIDERS: PCP Family Medicine; Visit Provider Student in an Organized Health Care Education/Training Program
DX: K83.8 Other specified diseases of biliary tract (principal); K80.20 Calculus of gallbladder without cholecystitis without obstruction
CPT/HCPCS: 74181

== ENCOUNTER 2023-09-12 10:57 | Emergency (ER) | payer OTHER, SELFPAY ==
[2023-09-12 11:11] VITALS: BP 136/92; PULSE 119; RESP 18; TEMP 37.1; O2SAT 94
[2023-09-12 11:45] LABS: Abs Immature Grans 0.02 10^3/uL (0.0-0.06); Absolute Basophil Count 0.03 10^3/uL (0.0-0.2); Absolute Eosinophil Count 0.12 10^3/uL (0.0-0.7); Absolute Lymphocyte Count 1.85 10^3/uL (1.2-3.4); Absolute Monocyte Count 0.84 10^3/uL (0.1-0.8); Basophils % 0.4; Eosinophils % 1.7; HCT 34.6 % (40.0-50.0); HGB 11.6 g/dL (13.5-17.5); Immature Grans % 0.3; Lymphocytes % 25.8; MCH 30.2 pg (27.0-33.0); MCHC 33.5 % (32.0-36.0); MCV 90 fL (80-95); MPV 10.4 fL (8.0-11.0); Monocytes % 11.7; Neutrophils % 60.1; Platelet Count 288 10^3/uL (130-400); RBC 3.84 10^6/uL (4.36-5.78); RDW 12.3 % (11.8-14.1); RDW-SD 40.1 fL; WBC 7.16 10^3/uL (4.4-10.8)
[2023-09-12 12:00] LABS: ALT 34 U/L (16-63); AST 23 U/L (15-37); Albumin 3.2 g/dL (3.4-5.0); Alkaline Phosphatase 108 U/L (46-116); Anion Gap 9.9 mmol/L (3-11); BUN 14 mg/dL (7-18); Bilirubin, Total 0.3 mg/dL (0.2-1.0); CO2 29.1 mmol/L (21.0-32.0); CREATININE 1.6 mg/dL (0.70-1.30); Calcium 8.7 mg/dL (8.5-10.1); Chloride 101 mmol/L (98-107); Estimated GFR 59.44 (mL/min/1.73m2); Glucose 94 mg/dL (74-106); Lipase 30 U/L (16-77); Potassium 3.6 mmol/L (3.5-5.1); Sodium 140 mmol/L (136-145); Total Protein 7.5 g/dL (6.4-8.2)
--- NOTE | 2023-09-12 12:40 | ED.GENADUL_ITS ---
Discharge Plan Disposition Patient Disposition: Home Condition: Stable Discharge Details Clinical Impression: Abdominal pain Primary Care Provider: Brendon Vivar ED Provider: Barrington Arciniega Home Meds and New Rx's Prescriptions: Continued gabapentin 300 mg capsule 300 mg PO BID Qty: 180 3RF cyclobenzaprine 10 mg tablet 10 mg PO TID PRN (Reason: muscle spasm) Qty: 30 3RF clonazepam 1 mg tablet 1 mg PO BID Qty: 56 0RF methadone 10 mg/5 mL solution 105 mg PO QAM magnesium gluconate 27 mg magnesium (500 mg) tablet 27 mg PO BID Qty: 60 3RF calcitriol 0.5 mcg capsule 0.5 mcg PO BID Qty: 360 3RF Hold Instructions: Resume on 06/15/22. diclofenac sodium 1 % gel 4 g topical QID Qty: 100 6RF Rx Instructions: apply to single knee, ankle, foot; for foot includes sole/toes/top of foot polyethylene glycol 3350 17 gram/dose powder 17 g PO DAILY omeprazole 40 mg capsule,delayed release(DR/EC) 40 mg PO DAILY Qty: 90 3RF calcium carbonate [Tums] 200 mg calcium (500 mg) tablet,chewable 2,000 mg PO BID Hold Instructions: Resume on 05/12/23. Please hold your nightly dose tonight and your a.m. dose tomorrow morning. prochlorperazine maleate 5 mg tablet 5 mg PO TID PRN (Reason: acute nausea) Qty: 30 0RF Discharge Instructions Instructions: Abdominal Pain (ED) Additional Instructions: Your laboratory values and physical examination are very reassuring. Please watch for new or worsening symptoms and return to the ER. Otherwise follow-up with the surgical team, Dr. Pulido, as already scheduled. I would also contact your primary care provider to make them aware of your ER visit and need for outpatient reevaluation. HPI General Mode of arrival: ambulatory . Date/Time Provider Initiated Documentation: 09/12/23 11:04 . Limitations to Documentation: no limitations . Information obtained by: patient . History of Present Illness 27 year old M presents to the emergency department with the chief complaint of Abdominal pain, loose stool, described as mild, with intensity rated at 3. Quality is described as aching, and is localized to the abdomen. Patient reports no radiation. Patient started experiencing this week(s) (2-3) and it has been intermittent. No relieving factors improve symptom(s), No exacerbating factors reported . Patient notes denies chest pain, fever/chills, loss of appetite and nausea/vomiting. Patient did receive the following treatments prior to arrival, none Related Data Home Medications Medication Instructions Recorded Confirmed magnesium gluconate 27 mg 27 mg PO BID #60 tabs 11/08/22 09/12/23 magnesium (500 mg) tablet calcium carbonate 200 mg calcium 2,000 mg PO BID 02/02/23 09/12/23 (500 mg) chewable tablet (Tums) calcitriol 0.5 mcg capsule 0.5 mcg PO BID #360 caps 04/21/23 09/12/23 diclofenac sodium 1 % topical gel 4 g topical QID #100 grams 04/21/23 09/12/23 methadone 10 mg/5 mL oral solution 105 mg PO QAM 06/12/23 09/12/23 polyethylene glycol 3350 17 17 g PO DAILY 06/12/23 09/12/23 gram/dose oral powder gabapentin 300 mg capsule 300 mg PO BID #180 caps 06/23/23 09/12/23 omeprazole 40 mg capsule,delayed 40 mg PO DAILY #90 caps 07/21/23 09/12/23 release clonazepam 1 mg tablet 1 mg PO BID #56 tabs 08/18/23 09/12/23 cyclobenzaprine 10 mg tablet 10 mg PO TID PRN muscle spasm #30 08/18/23 09/12/23 tabs prochlorperazine maleate 5 mg 5 mg PO TID PRN acute nausea #30 09/06/23 09/12/23 tablet tabs Previous Rx's Medication Instructions Recorded magnesium gluconate 27 mg 27 mg PO BID #60 tabs 11/08/22 magnesium (500 mg) tablet calcitriol 0.5 mcg capsule 0.5 mcg PO BID #360 caps 04/21/23 diclofenac sodium 1 % topical gel 4 g topical QID #100 grams 04/21/23 gabapentin 300 mg capsule 300 mg PO BID #180 caps 06/23/23 omeprazole 40 mg capsule,delayed 40 mg PO DAILY #90 caps 07/21/23 release clonazepam 1 mg tablet 1 mg PO BID #56 tabs 08/18/23 cyclobenzaprine 10 mg tablet 10 mg PO TID PRN muscle spasm #30 08/18/23 tabs prochlorperazine maleate 5 mg 5 mg PO TID PRN acute nausea #30 09/06/23 tablet tabs Allergies Allergy/AdvReac Type Severity Reaction Status Date / Time codeine Allergy Intermediate pass out Verified 09/12/23 11:13 Penicillins Allergy Skin Rash Verified 09/12/23 11:13 amoxicillin AdvReac Intermediate Nausea Verified 09/12/23 11:13 dextromethorphan AdvReac Intermediate Other (See Verified 09/12/23 11:13 [From NyQuil] Comment) doxylamine [From NyQuil] AdvReac Intermediate Other (See Verified 09/12/23 11:13 Comment) pseudoephedrine [From NyQuil] AdvReac Intermediate Other (See Verified 09/12/23 11:13 Comment) General Stated Complaint: Abd Prob ADRIANA: 3 Review of Systems Constitutional Constitutional: Denies fever(s) Cardiovascular Cardiovascular: Denies chest pain and Denies dyspnea Respiratory Respiratory: Denies dyspnea Gastrointestinal Gastrointestinal: Reports abdominal pain, Denies melena, Denies hematochezia, Reports change in bowel habits, Denies diarrhea, Reports loose stools and Denies vomiting Integumentary/Breasts Skin/Breast: Denies rash Exam Const General: cooperative, healthy appearing, comfortable and no acute distress Orientation: alert, awake and oriented x3 HENMT Head: normal to inspection, normocephalic and atraumatic Mouth: moist mucous membranes Eyes Conjunctivae: conjunctivae normal Neck Neck: normal visual inspection, trachea midline and supple Resp Effort & Inspection: normal respiratory effort and able to speak in complete sentences Auscultation: clear to auscultation bilaterally Cardio Rate: regular rate Rhythm: regular rhythm GI Inspection: normal to inspection Palpation: soft, not firm, no guarding and nontender Auscultation: normal bowel sounds Back/Spine/Pelvis Back: no CVA tenderness Skin General skin exam: no rashes or lesions noted Neuro General: patient alert, patient awake, moves all extremities and no focal motor deficits Cognition: normal cognition Speech: speech normal Gait: normal gait Sensory Exam: no sensory deficits noted Psych Appearance: grossly normal Mental Status: mental status grossly normal Course Vital Signs Vital signs: Vital Signs Temperature 37.1 C 09/12/23 11:11 Pulse 119 H 09/12/23 11:11 Respiratory Rate 18 09/12/23 11:11 Blood Pressure 136/92 H 09/12/23 11:11 Pulse Oximetry 94 09/12/23 11:11 Temperature 37.1 C 09/12/23 11:11 Temperature Source Oral 09/12/23 11:11 Pulse 119 H 09/12/23 11:11 Respiratory Rate 18 09/12/23 11:11 Respiratory Effort Normal 09/12/23 11:13 Blood Pressure 136/92 H 09/12/23 11:11 Blood Pressure Position Sitting 09/12/23 11:11 Pulse Oximetry 94 09/12/23 11:11 Oxygen Delivery Method Room Air 09/12/23 11:11 Oxygen Flow Rate 0 09/12/23 11:11 Lab/Test Results Lab/Test Results: Laboratory Tests Range/Units 09/12/23 11:40 WBC (4.4-10.8) 10^3/uL 7.16 RBC (4.36-5.78) 10^6/uL 3.84 L Hgb (13.5-17.5) g/dL 11.6 L Hct (40.0-50.0) % 34.6 L MCV (80-95) fL 90 MCH (27.0-33.0) pg 30.2 MCHC (32.0-36.0) % 33.5 RDW (11.8-14.1) % 12.3 Plt Count (130-400) 10^3/uL 288 MPV (8.0-11.0) fL 10.4 Immature Gran % 0.3 Neutrophils % 60.1 Lymphocytes % 25.8 Monocytes % 11.7 Eosinophils % 1.7 Basophils % 0.4 Nucleated RBC % (0.0-0.3) % 0.0 Absolute Neutrophils (1.2-6.7) 10^3/uL 4.30 Absolute Lymphocytes (1.2-3.4) 10^3/uL 1.85 Absolute Monocytes (0.1-0.8) 10^3/uL 0.84 H Absolute Eosinophils (0.0-0.7) 10^3/uL 0.12 Absolute Basophils (0.0-0.2) 10^3/uL 0.03 Sodium (136-145) mmol/L 140 Potassium (3.5-5.1) mmol/L 3.6 Chloride (98-107) mmol/L 101 Carbon Dioxide (21.0-32.0) mmol/L 29.1 Anion Gap (3-11) mmol/L 9.9 BUN (7-18) mg/dL 14 Creatinine (0.70-1.30) mg/dL 1.6 H Est GFR (CKD-EPI 2020) (mL/min/1.73m2) 59.44 Glucose (74-106) mg/dL 94 Calcium (8.5-10.1) mg/dL 8.7 Total Bilirubin (0.2-1.0) mg/dL 0.3 AST (15-37) U/L 23 ALT (16-63) U/L 34 Alkaline Phosphatase (46-116) U/L 108 Total Protein (6.4-8.2) g/dL 7.5 Albumin (3.4-5.0) g/dL 3.2 L Lipase (16-77) U/L 30 Medical Decision Making 27-year-old gentleman presents with 2-3 weeks of diffuse abdominal pain associated with loose stool but denies diarrhea. Patient states that he recently had a CT, I did review this. He did have bile duct dilatation at that time and is scheduled to see Dr. Pulido, general surgery, in about 2 weeks. Patient admits to recent dental surgery and a significant change in his overall diet. He has not really had any solid food in over 2 weeks. Patient states he went to urgent care and after that visit is concerned that he may have a small bowel obstruction. He denies any increase of discomfort. Patient had a bowel movement earlier today. Denies black tarry stools or bright red blood in his stools. Clinically he appears well, nontoxic, no acute distress. Abdomen is soft, nontender, certainly nonsurgical. Normal bowel sounds throughout. Discussed reassuring examination with patient. Plan to obtain CBC, CMP, lipase. Given his reassuring examination, recent CT, very little suspicion for acute bowel obstruction. Patient has had multiple recent imaging studies on various parts of his body and after using shared decision making, will not pursue CT imaging today if laboratory values did not reveal any concerning findings. White blood cell count of 7.16. Mild anemia which appears to be near his baseline. Electrolytes unremarkable. Creatinine of 1.6 which also appears to be near his baseline. Albumin of 3.2. LFTs and lipase all unremarkable. Total bilirubin of 0.3. Discussed benign workup with the patient. He is very reassured and is comforta ble with discharge. He was encouraged to watch for new or evolving symptoms and return to the ER, otherwise contact his PCP to discuss outpatient follow-up and also follow-up with general surgery as already scheduled. Standard discharge and return precautions were provided. Patient understands, is agreeable to this plan, and has no additional questions or concerns upon discharge. This documentation was generated using [employer] system, please disregard any oddities of phrase or misspellings. Medical Records Medical records reviewed: Yes I reviewed the patient's medical records. Quality:SDOH Health Related Social Needs: Health related social needs transpo insecurity PFSH All Active Problems (Updated 09/12/23 @ 12:41 by ANDREW Chow) Abdominal pain (Acute) Dehydration (Acute) Biliary colic (Acute) Anxiety (Chronic) Arm pain (Acute) Hamstring tendinitis of left thigh (Acute) Pes anserine bursitis (Acute) Oral pain (Acute) Pain, dental (Acute) Hypomagnesemia (Acute) Hypokalemia (Acute) Dehydration (Acute) Hypocalcemia (Acute) Anxiety (Chronic) Pain in scrotum (Acute) Viral illness (Acute) Knee pain (Acute) Plantar fasciitis of left foot (Acute) Hypernatremia (Acute) Cervical radiculopathy (Acute) URI (upper respiratory infection) (Acute) Left-sided Flower's palsy (Acute) Neck pain on left side (Acute) Constipation (Acute) Grief reaction (Chronic) Opiate dependence, continuous (Acute) Cellulitis (Acute) Cholelithiases (Acute) 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 Left arm numbness (Acute) Gynecomastia, male (Acute) b/l, per CT (Jul 2022).. Possible 2' Methadone, Clnzpm (?). Surg eval (+)/No further action. CKD (chronic kidney disease) stage 2, GFR 60-89 ml/min (Acute) GFR 64-65, with Hx FLORESITA and GFR < 45 Complex medical condition (Chronic) Serious electrolyte imbalances, with gynecomastia, possible MEN Dx, CKD and anemia with baseline anxiety and Hx PTSD. History of electrolyte imbalance (Acute) Neck pain on left side (Acute) with shoulder, upper back pain.. torticollis, radiating into left hip/leg Pulmonary nodule 1 cm or greater in diameter (Chronic) Therapeutic opioid induced constipation (Acute) Sphincter of Oddi dysfunction (Chronic) Abnormal CT scan, kidney (Acute) Intrahepatic bile duct dilation (Acute) Common bile duct dilatation (Chronic) Has been dilated for quite some time, now more-so. Normal LFTs. Known gallstones. Abdominal pain (Acute) Iatrogenic hypocalcemia (Acute) Multiple endocrine neoplasia type I (Chronic) Chronic constipation (Chronic) Primary hyperparathyroidism (Chronic) Depression (Chronic) Hypomagnesemia (Chronic) Hypocalcemia (Chronic) Depression (Chronic) Suicidal ideation (Acute) Elevated parathyroid hormone (Acute) Family history of coronary arteriosclerosis (Chronic) Father of CO at 50, mother had CO at 42 Severe anxiety with panic (Chronic) Cellulitis (Acute) Medical History Hypokalemia Hypocalcemia Anxiety Depression Hyperlipidemia Family history of multiple endocrine neoplasia, type 1 PTSD (post-traumatic stress disorder) Per pt. states no triggers at this time. Surgical History H/O parathyroidectomy Family History Mother Anxiety Asthma Depression Sister Anxiety Depression Father Cancer lung & stomach Depression Diabetes Hypertension MEN 1 (multiple endocrine neoplasia) Social History Smoking/Tobacco Use Status: Never Smoking risk assessment performed?: Yes Alcohol Intake: never Drug use: Rarely Substance use type: does not use and former substance user Adopted: No Caregiver/Support person: No Foster care: No Household members: none Housing: apartment Number of Children: 0 Communication Needs: None Education Level: high school Do you need help understanding health information?: Never 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 and animals: Yes (Ally) Pets and animals: dog(s) Sexually active: No Do you think of yourself as: straight/heterosexual Current gender identity: male What is your relationship status?: How often do you talk on the phone with friends or family?: twice per week How often do you get together with friends or relatives?: never Do you belong to any clubs or organized social groups?: no Panel score (0-1 are the most socially isolated patients): 0 What type of physical activity do you participate in: walking Duration: 15-30 minutes/day Frequency: 5-6 times per week Maryam/Amish: Sikh Special maryam needs: No Seatbelt use: always Helmet use: Yes Helmet use: always Drive 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 rental car ferry 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
[2023-09-12 12:46] VITALS: BP 106/70; PULSE 96; RESP 16; TEMP 37.1; O2SAT 94
== END 2023-09-12 12:42 | disposition home or self-care (01) ==
PROVIDERS: Emergency Medicine; Emergency Provider Physician Assistant; PCP Family Medicine
DX: R10.11 Right upper quadrant pain (principal); R10.12 Left upper quadrant pain; E78.5 Hyperlipidemia, unspecified
CPT/HCPCS: 36415; 80053; 83690; 99283; 85025

== ENCOUNTER 2023-09-13 15:22 | Emergency (ER) | payer MEDICAID, SELFPAY ==
--- NOTE | 2023-09-13 15:25 | ED.GENADUL_ITS ---
Discharge Plan Disposition Patient Disposition: Home Discharge Details Clinical Impression: Accidental overdose Primary Care Provider: Brendon Vivar ED Provider: Pedro Wolfe Home Meds and New Rx's Prescriptions: Continued gabapentin 300 mg capsule 300 mg PO BID Qty: 180 3RF cyclobenzaprine 10 mg tablet 10 mg PO TID PRN (Reason: muscle spasm) Qty: 30 3RF clonazepam 1 mg tablet 1 mg PO BID Qty: 56 0RF methadone 10 mg/5 mL solution 105 mg PO QAM magnesium gluconate 27 mg magnesium (500 mg) tablet 27 mg PO BID Qty: 60 3RF calcitriol 0.5 mcg capsule 0.5 mcg PO BID Qty: 360 3RF Hold Instructions: Resume on 06/15/22. diclofenac sodium 1 % gel 4 g topical QID Qty: 100 6RF Rx Instructions: apply to single knee, ankle, foot; for foot includes sole/toes/top of foot polyethylene glycol 3350 17 gram/dose powder 17 g PO DAILY omeprazole 40 mg capsule,delayed release(DR/EC) 40 mg PO DAILY Qty: 90 3RF calcium carbonate [Tums] 200 mg calcium (500 mg) tablet,chewable 2,000 mg PO BID Hold Instructions: Resume on 05/12/23. Please hold your nightly dose tonight and your a.m. dose tomorrow morning. prochlorperazine maleate 5 mg tablet 5 mg PO TID PRN (Reason: acute nausea) Qty: 30 0RF Discharge Instructions Additional Instructions: You were seen in the emergency department following your unintentional overdose. You had no obvious neurological abnormalities. Please be sure to take your previously scheduled medicines as directed. Please return to the emergency department if you have any other concerns. Otherwise please follow-up next week with your primary care provider. Discharge Data Discharge Date/Time-TO BE ENTERED AT DEPARTURE: 09/13/23 16:02 HPI General Date/Time Provider Initiated Documentation: 09/13/23 15:25 . HPI Narrative: MDM This is a 27-year-old normothermic and mildly tachycardic male well-known to the emergency department with report of taking an extra dose of cyclobenzaprine earlier today but no obvious toxicity. No significant hypertension or t achycardia so doubt sympathomimetic toxidrome. Not altered to suggest anticholinergic toxidrome. Not altered to suggest encephalitis. Normal respiratory rate with no hypoxia so doubt opiate toxidrome. Patient denies suicidal and homicidal ideation. No pain or proportion to suggest necrotizing soft tissue infection. No chest pain to suggest ACS. No history of emesis and no indication for assessment of electrolytes. No black nor bloody stools and no indication for CBC. Patient is not hypotensive to suggest orthostatic hypotension. Patient is not somnolent so no indication for monitoring. No syncope so no indication for ECG. Patient and I discussed return to the ED for any pain or syncope. Patient was counseled on appropriate dosing of his cyclobenzaprine. His tachycardia resolved without intervention. HPI This is a 27-year-old male well-known to the emergency department arrived via private vehicle in the setting of an unintentional overdose on cyclobenzaprine. Patient reports that he took an additional dose of cyclobenzaprine today as he took a long car ride yesterday and had more muscle soreness. He was not attempting to harm himself. He denies suicidal homicidal ideation. He is not falling asleep but feels slightly lightheaded sleepy. He denies dysuria frequency. He is not having any chest pain. He denies urinary frequency. He denies any illicit drug use. He denies routine tobacco and ethanol. He has no other complaints but wants to be checked out. Exam General: Well-appearing in no acute distress speaking in complete sentences. Head: Normocephalic, atraumatic. Eye: Extraocular eye movements intact. No conjunctival injection. No scleral icterus. Ear, nose, mouth, throat: Grossly normal inspection. Normal voice, handling secretions normally. Neck: Trachea midline. Cardiovascular: Well-perfused distal extremities. Respiratory: Nonlabored respiration. Gastrointestinal: Nondistended abdomen. Musculoskeletal: No edema. Moving all 4 extremities spontaneously. Skin: Normal for age and race, grossly normal temperature and turgor. No acute rash. Neurologic: Alert and appropriate, no apparent acute deficits. Psychiatric: Mood and manner are appropriate. Grooming and personal hygiene are appropriate. No pressured speech. No flight of ideas. No suicidal or homicidal ideation. Related Data Home Medications Medication Instructions Recorded Confirmed magnesium gluconate 27 mg 27 mg PO BID #60 tabs 11/08/22 09/13/23 magnesium (500 mg) tablet calcium carbonate 200 mg calcium 2,000 mg PO BID 02/02/23 09/13/23 (500 mg) chewable tablet (Tums) calcitriol 0.5 mcg capsule 0.5 mcg PO BID #360 caps 04/21/23 09/13/23 diclofenac sodium 1 % topical gel 4 g topical QID #100 grams 04/21/23 09/13/23 methadone 10 mg/5 mL oral solution 105 mg PO QAM 06/12/23 09/13/23 polyethylene glycol 3350 17 17 g PO DAILY 06/12/23 09/13/23 gram/dose oral powder gabapentin 300 mg capsule 300 mg PO BID #180 caps 06/23/23 09/13/23 omeprazole 40 mg capsule,delayed 40 mg PO DAILY #90 caps 07/21/23 09/13/23 release cyclobenzaprine 10 mg tablet 10 mg PO TID PRN muscle spasm #30 08/18/23 09/13/23 tabs prochlorperazine maleate 5 mg 5 mg PO TID PRN acute nausea #30 09/06/23 09/13/23 tablet tabs clonazepam 1 mg tablet 1 mg PO BID #56 tabs 09/12/23 09/13/23 Previous Rx's Medication Instructions Recorded magnesium gluconate 27 mg 27 mg PO BID #60 tabs 11/08/22 magnesium (500 mg) tablet calcitriol 0.5 mcg capsule 0.5 mcg PO BID #360 caps 04/21/23 diclofenac sodium 1 % topical gel 4 g topical QID #100 grams 04/21/23 gabapentin 300 mg capsule 300 mg PO BID #180 caps 06/23/23 omeprazole 40 mg capsule,delayed 40 mg PO DAILY #90 caps 07/21/23 release cyclobenzaprine 10 mg tablet 10 mg PO TID PRN muscle spasm #30 08/18/23 tabs prochlorperazine maleate 5 mg 5 mg PO TID PRN acute nausea #30 09/06/23 tablet tabs clonazepam 1 mg tablet 1 mg PO BID #56 tabs 09/12/23 Allergies Allergy/AdvReac Type Severity Reaction Status Date / Time codeine Allergy Intermediate pass out Verified 09/13/23 15:30 Penicillins Allergy Skin Rash Verified 09/13/23 15:30 amoxicillin AdvReac Intermediate Nausea Verified 09/13/23 15:30 dextromethorphan AdvReac Intermediate Other (See Verified 09/13/23 15:30 [From NyQuil] Comment) doxylamine [From NyQuil] AdvReac Intermediate Other (See Verified 09/13/23 15:30 Comment) pseudoephedrine [From NyQuil] AdvReac Intermediate Other (See Verified 09/13/23 15:30 Comment) General ADRIANA: 3 Medical Decision Making Quality:SDOH Health Related Social Needs: Health related social needs transpo insecurity PFSH All Active Problems (Updated 09/13/23 @ 15:44 by Pedro Wolfe MD) Accidental overdose (Acute) Abdominal pain (Acute) Dehydration (Acute) Biliary colic (Acute) Anxiety (Chronic) Arm pain (Acute) Hamstring tendinitis of left thigh (Acute) Pes anserine bursitis (Acute) Oral pain (Acute) Pain, dental (Acute) Hypomagnesemia (Acute) Hypokalemia (Acute) Dehydration (Acute) Hypocalcemia (Acute) Anxiety (Chronic) Pain in scrotum (Acute) Viral illness (Acute) Hypernatremia (Acute) Cervical radiculopathy (Acute) URI (upper respiratory infection) (Acute) Left-sided Flower's palsy (Acute) Neck pain on left side (Acute) Constipation (Acute) Grief reaction (Chronic) Opiate dependence, continuous (Acute) Cellulitis (Acute) Cholelithiases (Acute) 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 Possible 2' Methadone, Clnzpm (?). Surg eval (+)/No further action. CKD (chronic kidney disease) stage 2, GFR 60-89 ml/min (Acute) GFR 64-65, with Hx FLORESITA and GFR < 45 Complex medical condition (Chronic) Serious electrolyte imbalances, with gynecomastia, possible MEN Dx, CKD and anemia with baseline anxiety and Hx PTSD. History of electrolyte imbalance (Acute) Neck pain on left side (Acute) with shoulder, upper back pain.. torticollis, radiating into left hip/leg Pulmonary nodule 1 cm or greater in diameter (Chronic) Therapeutic opioid induced constipation (Acute) Sphincter of Oddi dysfunction (Chronic) Abnormal CT scan, kidney (Acute) Intrahepatic bile duct dilation (Acute) Common bile duct dilatation (Chronic) Has been dilated for quite some time, now more-so. Normal LFTs. Known gallstones. Abdominal pain (Acute) Iatrogenic hypocalcemia (Acute) Multiple endocrine neoplasia type I (Chronic) Chronic constipation (Chronic) Primary hyperparathyroidism (Chronic) Depression (Chronic) Hypomagnesemia (Chronic) Hypocalcemia (Chronic) Depression (Chronic) Suicidal ideation (Acute) Elevated parathyroid hormone (Acute) Family history of coronary arteriosclerosis (Chronic) Father of [place] at 50, mother had [place] at 42 Severe anxiety with panic (Chronic) Cellulitis (Acute) Medical History Hypokalemia Hypocalcemia Anxiety Depression Hyperlipidemia Family history of multiple endocrine neoplasia, type 1 PTSD (post-traumatic stress disorder) Per pt. states no triggers at this time. Surgical History H/O parathyroidectomy Family History Mother Anxiety Asthma Depression Sister Anxiety Depression Father Cancer lung & stomach Depression Diabetes Hypertension MEN 1 (multiple endocrine neoplasia) Social History Smoking/Tobacco Use Status: Never Smoking risk assessment performed?: Yes Alcohol Intake: never Drug use: Rarely Substance use type: does not use and former substance user Adopted: No Caregiver/Support person: No Foster care: No Household members: none Housing: apartment Number of Children: 0 Communication Needs: None Education Level: high school Do you need help understanding health information?: Never 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 and animals: Yes (Ally) Pets and animals: dog(s) Sexually active: No Do you think of yourself as: straight/heterosexual Current gender identity: male What is your relationship status?: How often do you talk on the phone with friends or family?: twice per week How often do you get together with friends or relatives?: never Do you belong to any clubs or organized social groups?: no Panel score (0-1 are the most socially isolated patients): 0 What type of physical activity do you participate in: walking Duration: 15-30 minutes/day Frequency: 5-6 times per week Maryam/[employer]: [employer] Special maryam needs: No Seatbelt use: always Helmet use: Yes Helmet use: always 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
[2023-09-13 15:26] VITALS: BP 134/93; PULSE 100; RESP 20; TEMP 37.2; O2SAT 97
[2023-09-13 15:31] VITALS: BP 134/93; PULSE 100; RESP 20; TEMP 37.2; O2SAT 97
[2023-09-13 15:46] VITALS: PULSE 86
== END 2023-09-13 16:02 | disposition home or self-care (01) ==
LOC: ER 17:12
PROVIDERS: Emergency Provider Emergency Medicine; PCP Family Medicine
DX: T48.1X1A Poisoning by skeletal muscle relaxants [neuromuscular blocking agents], accidental (unintentional), initial encounter (principal); R42 Dizziness and giddiness; R40.0 Somnolence
CPT/HCPCS: 99281; 99283

== ENCOUNTER 2023-09-16 11:59 | Emergency (ER) | payer OTHER, SELFPAY ==
--- NOTE | 2023-09-16 12:00 | RT.EKG_ITS ---
APPROVED REPORT Exam: Resting ECG Reason for Exam: chest pain Patient Location: E HR:111 bpm ECG Measurements Heart Rate 111 AXIS IA 172 P 41 QRSd 90 QRS 60 QT 331 T 24 QTc 450 Conclusion Sinus tachycardia...rate> 99
[2023-09-16 12:03] VITALS: BP 171/89; PULSE 118; RESP 16; TEMP 36.9; O2SAT 99
[2023-09-16 12:07] VITALS: RESP 16
--- NOTE | 2023-09-16 12:19 | ED.GENADUL_ITS ---
Discharge Plan Disposition Patient Disposition: Home Condition: Stable Discharge Details Clinical Impression: Chest pain Primary Care Provider: Brendon Vivar ED Provider: Ricardo Crabtree Home Meds and New Rx's Prescriptions: Continued gabapentin 300 mg capsule 300 mg PO BID Qty: 180 3RF cyclobenzaprine 10 mg tablet 10 mg PO TID PRN (Reason: muscle spasm) Qty: 30 3RF clonazepam 1 mg tablet 1 mg PO BID Qty: 56 0RF methadone 10 mg/5 mL solution 105 mg PO QAM magnesium gluconate 27 mg magnesium (500 mg) tablet 27 mg PO BID Qty: 60 3RF calcitriol 0.5 mcg capsule 0.5 mcg PO BID Qty: 360 3RF Hold Instructions: Resume on 06/15/22. diclofenac sodium 1 % gel 4 g topical QID Qty: 100 6RF Rx Instructions: apply to single knee, ankle, foot; for foot includes sole/toes/top of foot polyethylene glycol 3350 17 gram/dose powder 17 g PO DAILY omeprazole 40 mg capsule,delayed release(DR/EC) 40 mg PO DAILY Qty: 90 3RF calcium carbonate [Tums] 200 mg calcium (500 mg) tablet,chewable 2,000 mg PO BID Hold Instructions: Resume on 05/12/23. Please hold your nightly dose tonight and your a.m. dose tomorrow morning. prochlorperazine maleate 5 mg tablet 5 mg PO TID PRN (Reason: acute nausea) Qty: 30 0RF Discharge Instructions Additional Instructions: Your EKG and blood work did not show concerning findings at this time Follow-up with your primary care provider within 1 to 2 weeks If you feel more ill or have new symptoms such as severe shortness of breath return to the emergency department for reevaluation HPI General Mode of arrival: ambulatory . Date/Time Provider Initiated Documentation: 09/16/23 12:00 . Limitations to Documentation: no limitations . Information obtained by: patient . History of Present Illness 27 year old M presents to the emergency department with the chief complaint of Left-sided chest pain, described as moderate, Quality is described as stabbing, and is localized to the chest. Patient started experiencing this hour(s) (6) and it has been intermittent. No relieving factors improve symptom(s), No exacerbating factors reported . Patient notes no other symptoms.; denies fever/chills and shortness of breath. Patient did receive the following treatments prior to arrival, none Related Data Home Medications Medication Instructions Recorded Confirmed magnesium gluconate 27 mg 27 mg PO BID #60 tabs 11/08/22 09/13/23 magnesium (500 mg) tablet calcium carbonate 200 mg calcium 2,000 mg PO BID 02/02/23 09/13/23 (500 mg) chewable tablet (Tums) calcitriol 0.5 mcg capsule 0.5 mcg PO BID #360 caps 04/21/23 09/13/23 diclofenac sodium 1 % topical gel 4 g topical QID #100 grams 04/21/23 09/13/23 methadone 10 mg/5 mL oral solution 105 mg PO QAM 06/12/23 09/13/23 polyethylene glycol 3350 17 17 g PO DAILY 06/12/23 09/13/23 gram/dose oral powder gabapentin 300 mg capsule 300 mg PO BID #180 caps 06/23/23 09/13/23 omeprazole 40 mg capsule,delayed 40 mg PO DAILY #90 caps 07/21/23 09/13/23 release cyclobenzaprine 10 mg tablet 10 mg PO TID PRN muscle spasm #30 08/18/23 09/13/23 tabs prochlorperazine maleate 5 mg 5 mg PO TID PRN acute nausea #30 09/06/23 09/13/23 tablet tabs clonazepam 1 mg tablet 1 mg PO BID #56 tabs 09/12/23 09/13/23 Previous Rx's Medication Instructions Recorded magnesium gluconate 27 mg 27 mg PO BID #60 tabs 11/08/22 magnesium (500 mg) tablet calcitriol 0.5 mcg capsule 0.5 mcg PO BID #360 caps 04/21/23 diclofenac sodium 1 % topical gel 4 g topical QID #100 grams 04/21/23 gabapentin 300 mg capsule 300 mg PO BID #180 caps 06/23/23 omeprazole 40 mg capsule,delayed 40 mg PO DAILY #90 caps 07/21/23 release cyclobenzaprine 10 mg tablet 10 mg PO TID PRN muscle spasm #30 08/18/23 tabs prochlorperazine maleate 5 mg 5 mg PO TID PRN acute nausea #30 09/06/23 tablet tabs clonazepam 1 mg tablet 1 mg PO BID #56 tabs 09/12/23 Allergies Allergy/AdvReac Type Severity Reaction Status Date / Time codeine Allergy Intermediate pass out Verified 09/13/23 15:30 Penicillins Allergy Skin Rash Verified 09/13/23 15:30 amoxicillin AdvReac Intermediate Nausea Verified 09/13/23 15:30 dextromethorphan AdvReac Intermediate Other (See Verified 09/13/23 15:30 [From NyQuil] Comment) doxylamine [From NyQuil] AdvReac Intermediate Other (See Verified 09/13/23 15:30 Comment) pseudoephedrine [From NyQuil] AdvReac Intermediate Other (See Verified 09/13/23 15:30 Comment) General Stated Complaint: Chest Pain ADRIANA: 3 Review of Systems All systems reviewed & are unremarkable except as noted in HPI and below Constitutional Constitutional: Denies chills, Denies fever(s) and Denies weakness Cardiovascular Cardiovascular: Denies dyspnea Respiratory Respiratory: Denies cough and Denies dyspnea Gastrointestinal Gastrointestinal: Denies abdominal pain, Denies nausea and Denies vomiting Musculoskeletal Musculoskeletal: Denies joint swelling Neurologic Neurologic: Denies weakness Exam Const General: no acute distress Orientation: alert HENCA Head: normal to inspection Ears: external ears normal General nose exam: external nose normal Mouth: moist mucous membranes Eyes General: appearance normal, both eyes and all related structures Neck Neck: normal visual inspection Resp Effort & Inspection: normal respiratory effort and able to speak in complete sentences Auscultation: clear to auscultation bilaterally Cardio Rate: regular rate Heart Sounds: no murmurs GI Palpation: soft and nontender Skin General skin exam: no rashes or lesions noted Neuro General: patient alert and patient oriented x3 Extrem General: normal to inspection Psych Mental Status: mental status grossly normal Course Vital Signs Vital signs: Vital Signs Temperature 36.9 C 09/16/23 12:03 Pulse 118 H 09/16/23 12:03 Respiratory Rate 16 09/16/23 12:03 Blood Pressure 171/89 H 09/16/23 12:03 Pulse Oximetry 99 09/16/23 12:03 Temperature 36.9 C 09/16/23 12:03 Temperature Source Tympanic 09/16/23 12:03 Pulse 118 H 09/16/23 12:03 Respiratory Rate 16 09/16/23 12:07 Respiratory Effort Normal 09/16/23 12:07 Respiratory Depth Normal 09/16/23 12:07 Respiratory Pattern Normal 09/16/23 12:07 Blood Pressure 171/89 H 09/16/23 12:03 Blood Pressure Position Sitting 09/16/23 12:03 Pulse Oximetry 99 09/16/23 12:03 Oxygen Delivery Method Room Air 09/16/23 12:03 Oxygen Flow Rate 0 09/16/23 12:03 Pain Level 6 09/16/23 12:03 Medical Decision Making 37-year-old male with history of frequent ER visits for various complaints, MEN1, who comes in with 6 hours of left-sided intermittent sharp chest pain. Denies any fevers, difficulty breathing, cough, pain with exertion. No abdominal pain or vomiting. He is alert and oriented x 4 on arrival, localizes the pain to the left lateral chest in the lateral clavicular line, has no rashes or abnormalities on skin exam or palpation. No JVD, clear lung sounds, soft abdomen without tenderness, no leg swelling or calf tenderness. Wall pain versus pleurisy, will obtain EKG and troponin, and given his tachycardia which is likely from anxiety as he is anxious on exam, will send D-dimer. No tearing back pain, equal peripheral pulses so doubt dissection. Given lack of cough or fevers do not suspect pneumonia, and has clear lung sounds so doubt pneumothorax. pt stable, hr now 90, bp 145/62, troponin negative and has had symptoms for over 3 hours so do not feel delta troponin indicated, D-dimer less than 500, he is stable for discharge, advised to follow-up with his primary care provider return precautions given. Suspect pleurisy versus chest wall pain. Differential Diagnosis Differential Diagnosis: Chest wall pain, pleurisy Medical Records Medical records reviewed: Yes I reviewed the patient's medical records. Lab Data Lab results reviewed: Yes I reviewed the patient's lab results. ECG Data Attestation: I personally reviewed and interpreted this ECG (s) as follows: Prior ECG tracings: available for review Interpretation: Sinus tachycardia, rate of 111, MS 172, no STEMI Quality:SDOH Health Related Social Needs: Health related social needs transpo insecurity PFSH All Active Problems (Updated 09/16/23 @ 13:02 by Ricardo Crabtree MD) Chest pain (Acute) Accidental overdose (Acute) Abdominal pain (Acute) Dehydration (Acute) Biliary colic (Acute) Anxiety (Chronic) Arm pain (Acute) Hamstring tendinitis of left thigh (Acute) Pes anserine bursitis (Acute) Oral pain (Acute) Pain, dental (Acute) Hypomagnesemia (Acute) Hypokalemia (Acute) Dehydration (Acute) Hypocalcemia (Acute) Anxiety (Chronic) Hypernatremia (Acute) Cervical radiculopathy (Acute) URI (upper respiratory infection) (Acute) Left-sided Flower's palsy (Acute) Neck pain on left side (Acute) Constipation (Acute) Grief reaction (Chronic) Opiate dependence, continuous (Acute) Cellulitis (Acute) Cholelithiases (Acute) 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 Left arm numbness (Acute) Gynecomastia, male (Acute) b/l, per CT (Jul 2022).. Possible 2' Methadone, Clnzpm (?). Surg eval (+)/No further action. CKD (chronic kidney disease) stage 2, GFR 60-89 ml/min (Acute) GFR 64-65, with Hx FLORESITA and GFR < 45 Complex medical condition (Chronic) Serious electrolyte imbalances, with gynecomastia, possible MEN Dx, CKD and anemia with baseline anxiety and Hx PTSD. History of electrolyte imbalance (Acute) Neck pain on left side (Acute) with shoulder, upper back pain.. torticollis, radiating into left hip/leg Pulmonary nodule 1 cm or greater in diameter (Chronic) Therapeutic opioid induced constipation (Acute) Sphincter of Oddi dysfunction (Chronic) Abnormal CT scan, kidney (Acute) Intrahepatic bile duct dilation (Acute) Common bile duct dilatation (Chronic) Has been dilated for quite some time, now more-so. Normal LFTs. Known gallstones. Abdominal pain (Acute) Iatrogenic hypocalcemia (Acute) Multiple endocrine neoplasia type I (Chronic) Chronic constipation (Chronic) Primary hyperparathyroidism (Chronic) Depression (Chronic) Hypomagnesemia (Chronic) Hypocalcemia (Chronic) Depression (Chronic) Suicidal ideation (Acute) Elevated parathyroid hormone (Acute) Family history of coronary arteriosclerosis (Chronic) Father of [place] at 50, mother had [place] at 42 Severe anxiety with panic (Chronic) Cellulitis (Acute) Medical History Hypokalemia Hypocalcemia Anxiety Depression Hyperlipidemia Family history of multiple endocrine neoplasia, type 1 PTSD (post-traumatic stress disorder) Per pt. states no triggers at this time. Surgical History H/O parathyroidectomy Family History Mother Anxiety Asthma Depression Sister Anxiety Depression Father Cancer lung & stomach Depression Diabetes Hypertension MEN 1 (multiple endocrine neoplasia) Social History Smoking/Tobacco Use Status: Never Smoking risk assessment performed?: Yes Alcohol Intake: never Drug use: Rarely Substance use type: does not use and former substance user Adopted: No Caregiver/Support person: No Foster care: No Household members: none Housing: apartment Number of Children: 0 Communication Needs: None Education Level: high school Do you need help understanding health information?: Never 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 and animals: Yes (Ally) Pets and animals: dog(s) Sexually active: No Do you think of yourself as: straight/heterosexual Current gender identity: male What is your relationship status?: How often do you talk on the phone with friends or family?: twice per week How often do you get together with friends or relatives?: never Do you belong to any clubs or organized social groups?: no Panel score (0-1 are the most socially isolated patients): 0 What type of physical activity do you participate in: walking Duration: 15-30 minutes/day Frequency: 5-6 times per week Maryam/Samaritan: Jainism Special maryam needs: No Seatbelt use: always Helmet use: Yes Helmet use: always Drive 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 driver license agent: No Do you feel safe at home: Yes Do you feel safe in your relationship?: Yes Additional Social history: on methadone
[2023-09-16 12:38] LABS: HCT 35.2 % (40.0-50.0); HGB 11.7 g/dL (13.5-17.5); MCH 30.2 pg (27.0-33.0); MCHC 33.2 % (32.0-36.0); MCV 91 fL (80-95); MPV 10.1 fL (8.0-11.0); Platelet Count 288 10^3/uL (130-400); RBC 3.88 10^6/uL (4.36-5.78); RDW 12.3 % (11.8-14.1); RDW-SD 40.6 fL; WBC 6.89 10^3/uL (4.4-10.8)
[2023-09-16 12:56] LABS: Anion Gap 7.6 mmol/L (3-11); BUN 15 mg/dL (7-18); CO2 31.4 mmol/L (21.0-32.0); CREATININE 1.4 mg/dL (0.70-1.30); Calcium 7.9 mg/dL (8.5-10.1); Chloride 103 mmol/L (98-107); Estimated GFR 69.77 (mL/min/1.73m2); Glucose 108 mg/dL (74-106); Potassium 3.7 mmol/L (3.5-5.1); Sodium 142 mmol/L (136-145); Troponin I < 50 ng/L (< or =60)
[2023-09-16 13:07] LABS: D-Dimer 348 ng/mlFEU (<500)
[2023-09-16] MEDS: Ketorolac 15 MG/ML VIAL IM (13:20)
== END 2023-09-16 13:53 | disposition home or self-care (01) ==
PROVIDERS: Emergency Provider Emergency Medicine; PCP Family Medicine
DX: R07.9 Chest pain, unspecified (principal); R00.0 Tachycardia, unspecified; E78.5 Hyperlipidemia, unspecified; Z82.49 Family history of ischemic heart disease and other diseases of the circulatory system
CPT/HCPCS: 80048; 85027; 93005; 99284; 84484; 85379; 93010; J1885

== ENCOUNTER 2023-09-21 18:54 | Emergency (ER) | payer OTHER, SELFPAY ==
[2023-09-21 19:01] VITALS: BP 127/88; PULSE 89; RESP 20; TEMP 37; O2SAT 100
[2023-09-21 19:07] VITALS: RESP 20
--- NOTE | 2023-09-21 19:14 | ED.GENADUL_ITS ---
Discharge Plan Disposition Patient Disposition: Home Discharge Details Clinical Impression: Abdominal pain, suprapubic, Hypocalcemia Primary Care Provider: Brendon Vivar ED Provider: Crow Gama Home Meds and New Rx's Prescriptions: No Action gabapentin 300 mg capsule 300 mg PO BID Qty: 180 3RF cyclobenzaprine 10 mg tablet 10 mg PO TID PRN (Reason: muscle spasm) Qty: 30 3RF clonazepam 1 mg tablet 1 mg PO BID Qty: 56 0RF methadone 10 mg/5 mL solution 105 mg PO QAM magnesium gluconate 27 mg magnesium (500 mg) tablet 27 mg PO BID Qty: 60 3RF calcitriol 0.5 mcg capsule 0.5 mcg PO BID Qty: 360 3RF Hold Instructions: Resume on 06/15/22. diclofenac sodium 1 % gel 4 g topical QID Qty: 100 6RF Rx Instructions: apply to single knee, ankle, foot; for foot includes sole/toes/top of foot polyethylene glycol 3350 17 gram/dose powder 17 g PO DAILY omeprazole 40 mg capsule,delayed release(DR/EC) 40 mg PO DAILY Qty: 90 3RF calcium carbonate [Tums] 200 mg calcium (500 mg) tablet,chewable 2,000 mg PO BID Hold Instructions: Resume on 05/12/23. Please hold your nightly dose tonight and your a.m. dose tomorrow morning. prochlorperazine maleate 5 mg tablet 5 mg PO TID PRN (Reason: acute nausea) Qty: 30 0RF Discharge Instructions Instructions: Abdominal Pain (ED) Additional Instructions: At this time your labs and vital signs are reassuring, I do not feel that CT imaging is needed at this point. Your calcium was slightly low so please take additional calcium as discussed and follow-up with your primary care provider if not improving. Referrals: Brendon Vivar DO [Primary Care Provider] - HPI General Mode of arrival: ambulatory . Date/Time Provider Initiated Documentation: 09/21/23 18:56 . Limitations to Documentation: no limitations . Information obtained by: patient and RN notes reviewed . History of Present Illness 27 year old M presents to the emergency department with the chief complaint of Skin flushing, suprapubic pain, general malaise, burning eyes, described as moderate and similar to prior episodes, Patient started experiencing this hour(s) (16) and it has been constant. No relieving factors improve symptom(s), No exacerbating factors reported . Patient did receive the following treatments prior to arrival, none Related Data Home Medications Medication Instructions Recorded Confirmed magnesium gluconate 27 mg 27 mg PO BID #60 tabs 11/08/22 09/21/23 magnesium (500 mg) tablet calcium carbonate 200 mg calcium 2,000 mg PO BID 02/02/23 09/21/23 (500 mg) chewable tablet (Tums) calcitriol 0.5 mcg capsule 0.5 mcg PO BID #360 caps 04/21/23 09/21/23 diclofenac sodium 1 % topical gel 4 g topical QID #100 grams 04/21/23 09/21/23 methadone 10 mg/5 mL oral solution 105 mg PO QAM 06/12/23 09/21/23 polyethylene glycol 3350 17 17 g PO DAILY 06/12/23 09/21/23 gram/dose oral powder gabapentin 300 mg capsule 300 mg PO BID #180 caps 06/23/23 09/21/23 omeprazole 40 mg capsule,delayed 40 mg PO DAILY #90 caps 07/21/23 09/21/23 release cyclobenzaprine 10 mg tablet 10 mg PO TID PRN muscle spasm #30 08/18/23 09/21/23 tabs prochlorperazine maleate 5 mg 5 mg PO TID PRN acute nausea #30 09/06/23 09/21/23 tablet tabs clonazepam 1 mg tablet 1 mg PO BID #56 tabs 09/12/23 09/21/23 Previous Rx's Medication Instructions Recorded magnesium gluconate 27 mg 27 mg PO BID #60 tabs 11/08/22 magnesium (500 mg) tablet calcitriol 0.5 mcg capsule 0.5 mcg PO BID #360 caps 04/21/23 diclofenac sodium 1 % topical gel 4 g topical QID #100 grams 04/21/23 gabapentin 300 mg capsule 300 mg PO BID #180 caps 06/23/23 omeprazole 40 mg capsule,delayed 40 mg PO DAILY #90 caps 07/21/23 release cyclobenzaprine 10 mg tablet 10 mg PO TID PRN muscle spasm #30 08/18/23 tabs prochlorperazine maleate 5 mg 5 mg PO TID PRN acute nausea #30 09/06/23 tablet tabs clonazepam 1 mg tablet 1 mg PO BID #56 tabs 09/12/23 Allergies Allergy/AdvReac Type Severity Reaction Status Date / Time codeine Allergy Intermediate pass out Verified 09/13/23 15:30 Penicillins Allergy Skin Rash Verified 09/13/23 15:30 amoxicillin AdvReac Intermediate Nausea Verified 09/13/23 15:30 dextromethorphan AdvReac Intermediate Other (See Verified 09/13/23 15:30 [From NyQuil] Comment) doxylamine [From NyQuil] AdvReac Intermediate Other (See Verified 09/13/23 15:30 Comment) pseudoephedrine [From NyQuil] AdvReac Intermediate Other (See Verified 09/13/23 15:30 Comment) General Stated Complaint: GenMedical ADRIANA: 3 Review of Systems Constitutional Constitutional: Denies chills, Denies fever(s), Reports headache(s) and Reports malaise Eyes Eyes: Reports irritation ENT Ears, Nose, Mouth, and Throat: Reports headache(s), Denies nasal congestion and Denies sore throat Cardiovascular Cardiovascular: Denies chest pain and Denies dyspnea Respiratory Respiratory: Denies cough and Denies dyspnea Gastrointestinal Gastrointestinal: Reports abdominal pain (Suprapubic), Denies diarrhea, Reports nausea and Denies vomiting Genitourinary Genitourinary: Reports as per HPI, Denies genital pain, Reports dysuria, Denies testicular pain and Reports urinary frequency Integumentary/Breasts Skin/Breast: Denies rash Neurologic Neurologic: Reports headache(s) Exam Const General: cooperative Orientation: alert, awake and oriented x3 Eyes General: appearance normal, both eyes and all related structures Alignment and Position: alignment normal Periorbital: periorbital findings normal Eyelids: eyelids normal Conjunctivae: conjunctivae normal Sclera: sclerae normal Resp Effort & Inspection: normal respiratory effort and able to speak in complete sentences Auscultation: clear to auscultation bilaterally Cardio Rate: regular rate Rhythm: regular rhythm Heart Sounds: S1 normal and S2 normal GI Palpation: soft, not firm, no guarding, no masses, no pulsatile masses, not rigid and tender suprapubicly; Cedillo's sign negative Auscultation: normal bowel sounds Back/Spine/Pelvis Back: no CVA tenderness Neuro General: patient alert, patient awake, patient oriented x3, gait normal and moves all extremities Course Vital Signs Vital signs: Vital Signs Temperature 37.0 C 09/21/23 19:01 Pulse 89 09/21/23 19:01 Respiratory Rate 20 09/21/23 19:01 Blood Pressure 127/88 09/21/23 19:01 Pulse Oximetry 100 09/21/23 19:01 Temperature 37.0 C 09/21/23 19:01 Temperature Source Temporal Artery Scan 09/21/23 19:01 Pulse 89 09/21/23 19:01 Respiratory Rate 20 09/21/23 19:07 Respiratory Effort Normal, Non-Labored 09/21/23 19:07 Respiratory Depth Normal 09/21/23 19:07 Respiratory Pattern Normal 09/21/23 19:07 Blood Pressure 127/88 09/21/23 19:01 Blood Pressure Position Sitting 09/21/23 19:01 Pulse Oximetry 100 09/21/23 19:01 Oxygen Delivery Method Room Air 09/21/23 19:01 Oxygen Flow Rate 0 09/21/23 19:01 Pain Level 3 09/21/23 19:01 Medical Decision Making Patient presenting to the emergency department for chief complaint of general malaise, suprapubic pain especially with urination, skin flushing, and some eye irritation. Patient reports the eye irritation is similar to when he had COVID, skin flushing is similar to when he has had calcium and oral electrolyte a bnormalities, and states he has never had suprapubic discomfort. Physical exam shows suprapubic tenderness and some mild skin flushing to the neck and face otherwise unremarkable exam. Patient has history of health-related anxiety, electrolyte abnormalities secondary to parathyroidism, previous substance abuse, multiple ER visits. Given patient's past medical history will check urinalysis and labs along with COVID swab. Patient is otherwise stable do not feel that any emergent treatments are needed at this time. Reviewed patient's labs and patient is negative for COVID flu RSV, CBC shows mild but stable anemia, CMP does show slight hypocalcemia of 8.1 which is improved from previous labs dated 09/15 which was 7.9. Labs otherwise nondiagnostic. Urinalysis shows no signs of infection. Patient does state that he had missed a couple days of his calcium supplements but did take additional dosing this morning. Given otherwise no stable workup, stable vital signs, I do not feel that CT imaging is required for further investigation of this suprapubic pain which patient just dates is intermittent and he states that it is somewhat improved since being here. Will encourage patient to continue additional dosing of calcium as needed before returning to normal dosing. After discussion of diagnosis and plan of care patient has no further needs, questions, or concerns and states clear understanding to return to the emergency department for any worsening symptoms. This documentation was generated using [employer] dictation system, please disregard any oddities of phrase or misspellings. Lab Data Lab results reviewed: Yes I reviewed the patient's lab results. Quality:SDOH Health Related Social Needs: Health related social needs transpo insecurity PFSH All Active Problems (Updated 09/21/23 @ 20:50 by Crow Gama NP) Hypocalcemia (Acute) Abdominal pain, suprapubic (Acute) Chest pain (Acute) Accidental overdose (Acute) Abdominal pain (Acute) Dehydration (Acute) Biliary colic (Acute) Anxiety (Chronic) Arm pain (Acute) Hamstring tendinitis of left thigh (Acute) Pes anserine bursitis (Acute) Oral pain (Acute) Pain, dental (Acute) Hypomagnesemia (Acute) Hypokalemia (Acute) Dehydration (Acute) Hypernatremia (Acute) Cervical radiculopathy (Acute) URI (upper respiratory infection) (Acute) Left-sided Flower's palsy (Acute) Neck pain on left side (Acute) Constipation (Acute) Grief reaction (Chronic) Opiate dependence, continuous (Acute) Cellulitis (Acute) Cholelithiases (Acute) 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 Possible 2' Methadone, Clnzpm (?). Surg eval (+)/No further action. CKD (chronic kidney disease) stage 2, GFR 60-89 ml/min (Acute) GFR 64-65, with Hx FLORESITA and GFR < 45 Complex medical condition (Chronic) Serious electrolyte imbalances, with gynecomastia, possible MEN Dx, CKD and anemia with baseline anxiety and Hx PTSD. History of electrolyte imbalance (Acute) Neck pain on left side (Acute) with shoulder, upper back pain.. torticollis, radiating into left hip/leg Pulmonary nodule 1 cm or greater in diameter (Chronic) Therapeutic opioid induced constipation (Acute) Sphincter of Oddi dysfunction (Chronic) Abnormal CT scan, kidney (Acute) Intrahepatic bile duct dilation (Acute) Common bile duct dilatation (Chronic) Has been dilated for quite some time, now more-so. Normal LFTs. Known gallstones. Abdominal pain (Acute) Iatrogenic hypocalcemia (Acute) Multiple endocrine neoplasia type I (Chronic) Chronic constipation (Chronic) Primary hyperparathyroidism (Chronic) Depression (Chronic) Hypomagnesemia (Chronic) Hypocalcemia (Chronic) Depression (Chronic) Suicidal ideation (Acute) Elevated parathyroid hormone (Acute) Family history of coronary arteriosclerosis (Chronic) Father of [place] at 50, mother had [place] at 42 Severe anxiety with panic (Chronic) Cellulitis (Acute) Medical History Hypokalemia Hypocalcemia Anxiety Depression Hyperlipidemia Family history of multiple endocrine neoplasia, type 1 PTSD (post-traumatic stress disorder) Per pt. states no triggers at this time. Surgical History H/O parathyroidectomy Family History Mother Anxiety Asthma Depression Sister Anxiety Depression Father Cancer lung & stomach Depression Diabetes Hypertension MEN 1 (multiple endocrine neoplasia) Social History Smoking/Tobacco Use Status: Never Smoking risk assessment performed?: Yes Alcohol Intake: never Drug use: Rarely Substance use type: does not use and former substance user Adopted: No Caregiver/Support person: No Foster care: No Household members: none Housing: apartment Number of Children: 0 Communication Needs: None Education Level: high school Do you need help understanding health information?: Never 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 and animals: Yes (Ally) Pets and animals: dog(s) Sexually active: No Do you think of yourself as: straight/heterosexual Current gender identity: male What is your relationship status?: How often do you talk on the phone with friends or family?: twice per week How often do you get together with friends or relatives?: never Do you belong to any clubs or organized social groups?: no Panel score (0-1 are the most socially isolated patients): 0 What type of physical activity do you participate in: walking Duration: 15-30 minutes/day Frequency: 5-6 times per week Maryam/Protestant: Taoist Special maryam needs: No Seatbelt use: always Helmet use: Yes Helmet use: always Drive 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 lift 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
[2023-09-21 19:33] LABS: Bilirubin Negative (Negative); Blood Negative (Negative); Clarity Clear (Clear); Glucose Negative (Negative); Ketones Negative (Negative); Leukocyte Esterase Negative (Negative); Nitrite Negative (Negative); Urobilinogen 0.2 mg/dL (Up to 0.2); pH 7.5 (5-8)
[2023-09-21 19:46] LABS: Abs Immature Grans 0.01 10^3/uL (0.0-0.06); Absolute Basophil Count 0.03 10^3/uL (0.0-0.2); Absolute Eosinophil Count 0.13 10^3/uL (0.0-0.7); Absolute Lymphocyte Count 1.79 10^3/uL (1.2-3.4); Absolute Monocyte Count 0.78 10^3/uL (0.1-0.8); Absolute Neutrophil Count 3.75 10^3/uL (1.2-6.7); Basophils % 0.5; HGB 11.5 g/dL (13.5-17.5); Immature Grans % 0.2; Lymphocytes % 27.6; MCH 30.2 pg (27.0-33.0); MCHC 33.8 % (32.0-36.0); MCV 89 fL (80-95); MPV 9.9 fL (8.0-11.0); Neutrophils % 57.7; Platelet Count 312 10^3/uL (130-400); RBC 3.81 10^6/uL (4.36-5.78); RDW-SD 38.7 fL; WBC 6.49 10^3/uL (4.4-10.8)
[2023-09-21 20:01] LABS: ALT 28 U/L (16-63); AST 21 U/L (15-37); Albumin 3.2 g/dL (3.4-5.0); Alkaline Phosphatase 115 U/L (46-116); Anion Gap 7.4 mmol/L (3-11); BUN 16 mg/dL (7-18); Bilirubin, Total 0.3 mg/dL (0.2-1.0); CO2 30.6 mmol/L (21.0-32.0); CREATININE 1.5 mg/dL (0.70-1.30); Calcium 8.1 mg/dL (8.5-10.1); Chloride 102 mmol/L (98-107); Estimated GFR 64.23 (mL/min/1.73m2); Glucose 95 mg/dL (74-106); Magnesium 1.9 mg/dL (1.8-2.4); Potassium 3.5 mmol/L (3.5-5.1); Sodium 140 mmol/L (136-145); Total Protein 7.7 g/dL (6.4-8.2)
[2023-09-21 20:06] LABS: COVID-19 PCR Negative (Negative); Influenza A PCR Negative (Negative); Influenza B PCR Negative (Negative); RSV PCR Negative (Negative)
[2023-09-21 20:07] LABS: Source NASOPHARYNX
[2023-09-21 20:54] VITALS: BP 124/82; PULSE 88; RESP 16; O2SAT 99
== END 2023-09-21 20:59 | disposition home or self-care (01) ==
PROVIDERS: Emergency Provider Nurse Practitioner Family; PCP Family Medicine
DX: R10.30 Lower abdominal pain, unspecified (principal); E83.51 Hypocalcemia; Z11.52 Encounter for screening for COVID-19
CPT/HCPCS: 36415; 80053; 87637; 99283; 81003; 83735; 85025

== ENCOUNTER 2023-09-26 12:07 | Emergency (ER) | payer OTHER, SELFPAY ==
[2023-09-26 12:09] VITALS: BP 145/77; PULSE 101; RESP 14; TEMP 37.4; O2SAT 97
--- NOTE | 2023-09-26 12:25 | ED.GENADUL_ITS ---
Discharge Plan Disposition Patient Disposition: Home Condition: Stable Discharge Details Clinical Impression: Hypocalcemia Primary Care Provider: Brendon Vivar ED Provider: Ricardo Crabtree Home Meds and New Rx's Prescriptions: Continued gabapentin 300 mg capsule 300 mg PO BID Qty: 180 3RF cyclobenzaprine 10 mg tablet 10 mg PO TID PRN (Reason: muscle spasm) Qty: 30 3RF clonazepam 1 mg tablet 1 mg PO BID Qty: 56 0RF methadone 10 mg/5 mL solution 105 mg PO QAM magnesium gluconate 27 mg magnesium (500 mg) tablet 27 mg PO BID Qty: 60 3RF Patient Comments: Pt states he has been taking 1,000 mg twice a day x 2 weeks. - ML 09/26/23 calcitriol 0.5 mcg capsule 0.5 mcg PO BID Qty: 360 3RF Hold Instructions: Resume on 06/15/22. diclofenac sodium 1 % gel 4 g topical QID Qty: 100 6RF Rx Instructions: apply to single knee, ankle, foot; for foot includes sole/toes/top of foot polyethylene glycol 3350 17 gram/dose powder 17 g PO DAILY omeprazole 40 mg capsule,delayed release(DR/EC) 40 mg PO DAILY Qty: 90 3RF calcium carbonate [Tums] 200 mg calcium (500 mg) tablet,chewable 2,000 mg PO BID Hold Instructions: Resume on 05/12/23. Please hold your nightly dose tonight and your a.m. dose tomorrow morning. prochlorperazine maleate 5 mg tablet 5 mg PO TID PRN (Reason: acute nausea) Qty: 30 0RF Discharge Instructions Additional Instructions: Follow-up with your primary care provider as scheduled within 1 to 2 weeks If you feel more ill or feel like you are suffering from an emergent medical process return to the emergency department for reevaluation HPI General Mode of arrival: ambulatory . Date/Time Provider Initiated Documentation: 09/26/23 12:08 . Limitations to Documentation: no limitations . Information obtained by: patient . History of Present Illness 27 year old M presents to the emergency department with the chief complaint of Took more of his magnesium and calcium supplements that he is supposed to , Patient started experiencing this week(s) (2) and it has been constant. No relieving factors improve symptom(s), No exacerbating factors reported . Patient notes no other symptoms.. Patient did receive the following treatments prior to arrival, none Related Data Home Medications Medication Instructions Recorded Confirmed magnesium gluconate 27 mg 27 mg PO BID #60 tabs 11/08/22 09/26/23 magnesium (500 mg) tablet calcium carbonate (Tums) 2,000 mg PO BID 02/02/23 09/26/23 calcitriol 0.5 mcg capsule 0.5 mcg PO BID #360 caps 04/21/23 09/26/23 diclofenac sodium 1 % topical gel 4 g topical QID #100 grams 04/21/23 09/26/23 methadone 10 mg/5 mL oral solution 105 mg PO QAM 06/12/23 09/26/23 polyethylene glycol 3350 17 17 g PO DAILY 06/12/23 09/26/23 gram/dose oral powder gabapentin 300 mg capsule 300 mg PO BID #180 caps 06/23/23 09/26/23 omeprazole 40 mg capsule,delayed 40 mg PO DAILY #90 caps 07/21/23 09/26/23 release cyclobenzaprine 10 mg tablet 10 mg PO TID PRN muscle spasm #30 08/18/23 09/26/23 tabs prochlorperazine maleate 5 mg 5 mg PO TID PRN acute nausea #30 09/06/23 09/26/23 tablet tabs clonazepam 1 mg tablet 1 mg PO BID #56 tabs 09/12/23 09/26/23 Previous Rx's Medication Instructions Recorded magnesium gluconate 27 mg 27 mg PO BID #60 tabs 11/08/22 magnesium (500 mg) tablet calcitriol 0.5 mcg capsule 0.5 mcg PO BID #360 caps 04/21/23 diclofenac sodium 1 % topical gel 4 g topical QID #100 grams 04/21/23 gabapentin 300 mg capsule 300 mg PO BID #180 caps 06/23/23 omeprazole 40 mg capsule,delayed 40 mg PO DAILY #90 caps 07/21/23 release cyclobenzaprine 10 mg tablet 10 mg PO TID PRN muscle spasm #30 08/18/23 tabs prochlorperazine maleate 5 mg 5 mg PO TID PRN acute nausea #30 09/06/23 tablet tabs clonazepam 1 mg tablet 1 mg PO BID #56 tabs 09/12/23 Allergies Allergy/AdvReac Type Severity Reaction Status Date / Time codeine Allergy Intermediate pass out Verified 09/26/23 12:13 Penicillins Allergy Skin Rash Verified 09/26/23 12:13 amoxicillin AdvReac Intermediate Nausea Verified 09/26/23 12:13 dextromethorphan AdvReac Intermediate Other (See Verified 09/26/23 12:13 [From NyQuil] Comment) doxylamine [From NyQuil] AdvReac Intermediate Other (See Verified 09/26/23 12:13 Comment) pseudoephedrine [From NyQuil] AdvReac Intermediate Other (See Verified 09/26/23 12:13 Comment) General Stated Complaint: GenMedical ADRIANA: 3 Review of Systems All systems reviewed & are unremarkable except as noted in HPI and below Constitutional Constitutional: Denies chills and Denies fever(s) Eyes Eyes: Denies loss of vision ENT Ears, Nose, Mouth, and Throat: Denies change in voice Cardiovascular Cardiovascular: Denies chest pain and Denies dyspnea Respiratory Respiratory: Denies cough and Denies dyspnea Gastrointestinal Gastrointestinal: Denies abdominal pain, Denies nausea and Denies vomiting Genitourinary Genitourinary: Denies dysuria Musculoskeletal Musculoskeletal: Denies joint swelling Neurologic Neurologic: Denies loss of vision Psychiatric Psychiatric: Denies depression Exam Const General: no acute distress Orientation: alert HENMT Head: normal to inspection Ears: external ears normal General nose exam: external nose normal Mouth: moist mucous membranes Eyes General: appearance normal, both eyes and all related structures Neck Neck: normal visual inspection Resp Effort & Inspection: normal respiratory effort and able to speak in complete sentences Cardio Rate: regular rate GI Palpation: soft and nontender Skin General skin exam: no rashes or lesions noted Neuro General: patient alert and patient oriented x3 Extrem General: normal to inspection Psych Mental Status: mental status grossly normal Course Vital Signs Vital signs: Vital Signs Temperature 37.4 C 09/26/23 12:09 Pulse 101 H 09/26/23 12:09 Respiratory Rate 14 09/26/23 12:09 Blood Pressure 145/77 H 09/26/23 12:09 Pulse Oximetry 97 09/26/23 12:09 Temperature 37.4 C 09/26/23 12:09 Temperature Source Skin 09/26/23 12:09 Pulse 101 H 09/26/23 12:09 Respiratory Rate 14 09/26/23 12:09 Respiratory Effort Normal, Non-Labored 09/26/23 12:12 Blood Pressure 145/77 H 09/26/23 12:09 Blood Pressure Position Sitting 09/26/23 12:09 Pulse Oximetry 97 09/26/23 12:09 Oxygen Delivery Method Room Air 09/26/23 12:09 Oxygen Flow Rate 0 09/26/23 12:09 Pain Level 4 09/26/23 12:09 Medical Decision Making 27-year-old male with a history of multiple endocrine neoplasia, anxiety, who comes in with concern that his magnesium level to be high as well as his calcium level. He states for the last 2 weeks he has been taking double the dose of his oral magnesium and calcium that he supposed be taking. He denies any fevers, difficulty breathing, abdominal pain. Patient with stable vital signs on arrival and is ambulating with a normal gait on arrival, no concerning findings on neuroexam, no brisk reflexes or reduced reflexes. Will check a CMP and magnesium level and reassess Labs unremarkable, calcium 7.4 but when corrected for albumin level is 8.3. He is stable, feels well, advised to follow-up with his primary care provider return precautions given Differential Diagnosis Differential Diagnosis: Electrolyte abnormality, mismanage medications Quality:[facility] Health Related Social Needs: Health related social needs transpo insecurity PFSH All Active Problems (Updated 09/26/23 @ 13:24 by Ricardo Crabtree MD) Hypocalcemia (Acute) Hypocalcemia (Acute) Abdominal pain, suprapubic (Acute) Chest pain (Acute) Accidental overdose (Acute) Abdominal pain (Acute) Dehydration (Acute) Biliary colic (Acute) Anxiety (Chronic) Arm pain (Acute) Hamstring tendinitis of left thigh (Acute) Pes anserine bursitis (Acute) Oral pain (Acute) Pain, dental (Acute) Hypomagnesemia (Acute) Hypokalemia (Acute) Dehydration (Acute) Hypernatremia (Acute) Cervical radiculopathy (Acute) URI (upper respiratory infection) (Acute) Left-sided Flower's palsy (Acute) Neck pain on left side (Acute) Constipation (Acute) Grief reaction (Chronic) Opiate dependence, continuous (Acute) Cellulitis (Acute) Cholelithiases (Acute) 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 Possible 2' Methadone, Clnzpm (?). Surg eval (+)/No further action. CKD (chronic kidney disease) stage 2, GFR 60-89 ml/min (Acute) GFR 64-65, with Hx FLORESITA and GFR < 45 Complex medical condition (Chronic) Serious electrolyte imbalances, with gynecomastia, possible MEN Dx, CKD and anemia with baseline anxiety and Hx PTSD. History of electrolyte imbalance (Acute) Neck pain on left side (Acute) with shoulder, upper back pain.. torticollis, radiating into left hip/leg Pulmonary nodule 1 cm or greater in diameter (Chronic) Therapeutic opioid induced constipation (Acute) Sphincter of Oddi dysfunction (Chronic) Abnormal CT scan, kidney (Acute) Intrahepatic bile duct dilation (Acute) Common bile duct dilatation (Chronic) Has been dilated for quite some time, now more-so. Normal LFTs. Known gallstones. Abdominal pain (Acute) Iatrogenic hypocalcemia (Acute) Multiple endocrine neoplasia type I (Chronic) Chronic constipation (Chronic) Primary hyperparathyroidism (Chronic) Depression (Chronic) Hypomagnesemia (Chronic) Hypocalcemia (Chronic) Depression (Chronic) Suicidal ideation (Acute) Elevated parathyroid hormone (Acute) Family history of coronary arteriosclerosis (Chronic) Father of SC at 50, mother had SC at 42 Severe anxiety with panic (Chronic) Cellulitis (Acute) Medical History Hypokalemia Hypocalcemia Anxiety Depression Hyperlipidemia Family history of multiple endocrine neoplasia, type 1 PTSD (post-traumatic stress disorder) Per pt. states no triggers at this time. Surgical History H/O parathyroidectomy Family History Mother Anxiety Asthma Depression Sister Anxiety Depression Father Cancer lung & stomach Depression Diabetes Hypertension MEN 1 (multiple endocrine neoplasia) Social History Smoking/Tobacco Use Status: Never Smoking risk assessment performed?: Yes Alcohol Intake: never Drug use: Rarely Substance use type: does not use and former substance user Adopted: No Caregiver/Support person: No Foster care: No Household members: none Housing: apartment Number of Children: 0 Communication Needs: None Education Level: high school Do you need help understanding health information?: Never 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 and animals: Yes (Ally) Pets and animals: dog(s) Sexually active: No Do you think of yourself as: straight/heterosexual Current gender identity: male What is your relationship status?: How often do you talk on the phone with friends or family?: twice per week How often do you get together with friends or relatives?: never Do you belong to any clubs or organized social groups?: no Panel score (0-1 are the most socially isolated patients): 0 What type of physical activity do you participate in: walking Duration: 15-30 minutes/day Frequency: 5-6 times per week Maryam/Pentecostalism: Religious Special maryam needs: No Seatbelt use: always Helmet use: Yes Helmet use: always Drive 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 personal 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
[2023-09-26 12:47] VITALS: BP 145/77; PULSE 101; RESP 14; RESP 20; TEMP 37.4; O2SAT 97
[2023-09-26 13:03] LABS: ALT 24 U/L (16-63); AST 21 U/L (15-37); Albumin 2.9 g/dL (3.4-5.0); Alkaline Phosphatase 99 U/L (46-116); Anion Gap 6.8 mmol/L (3-11); BUN 14 mg/dL (7-18); Bilirubin, Total 0.2 mg/dL (0.2-1.0); CO2 31.2 mmol/L (21.0-32.0); CREATININE 1.3 mg/dL (0.70-1.30); Calcium 7.4 mg/dL (8.5-10.1); Chloride 103 mmol/L (98-107); Estimated GFR 76.26 (mL/min/1.73m2); Glucose 113 mg/dL (74-106); Magnesium 1.8 mg/dL (1.8-2.4); Potassium 3.6 mmol/L (3.5-5.1); Sodium 141 mmol/L (136-145); Total Protein 6.9 g/dL (6.4-8.2)
[2023-09-26 13:30] VITALS: BP 145/77; PULSE 101; RESP 20; TEMP 37.4; O2SAT 97
== END 2023-09-26 13:33 | disposition home or self-care (01) ==
PROVIDERS: Emergency Provider Emergency Medicine; PCP Family Medicine
DX: E83.51 Hypocalcemia (principal)
CPT/HCPCS: 80053; 99282; 83735; 99283

== ENCOUNTER 2023-09-28 03:00 | Emergency (ER) | payer OTHER, SELFPAY ==
[2023-09-28 03:06] VITALS: BP 146/95; PULSE 75; RESP 16; TEMP 36.7; O2SAT 99
[2023-09-28 03:16] VITALS: BP 146/95; PULSE 75; RESP 16; TEMP 36.7; O2SAT 99
[2023-09-28] MEDS: Dicyclomine 10 MG CAP PO (03:23)
[2023-09-28] MEDS: Ondansetron O.D.T. 4 MG TABEF PO (03:23)
--- NOTE | 2023-09-28 03:49 | W.ED.GENAD ---
Discharge Plan Disposition Patient Disposition: Home Condition: Good Discharge Details Clinical Impression: Epigastric discomfort Primary Care Provider: Brendon Vivar ED Provider: Richy Eagle Home Meds and New Rx's Prescriptions: No Action gabapentin 300 mg capsule 300 mg PO BID Qty: 180 3RF cyclobenzaprine 10 mg tablet 10 mg PO TID PRN (Reason: muscle spasm) Qty: 30 3RF clonazepam 1 mg tablet 1 mg PO BID Qty: 56 0RF methadone 10 mg/5 mL solution 105 mg PO QAM magnesium gluconate 27 mg magnesium (500 mg) tablet 27 mg PO BID Qty: 60 3RF Patient Comments: Pt states he has been taking 1,000 mg twice a day x 2 weeks. - ML 09/26/23 calcitriol 0.5 mcg capsule 0.5 mcg PO BID Qty: 360 3RF Hold Instructions: Resume on 06/15/22. diclofenac sodium 1 % gel 4 g topical QID Qty: 100 6RF Rx Instructions: apply to single knee, ankle, foot; for foot includes sole/toes/top of foot polyethylene glycol 3350 17 gram/dose powder 17 g PO DAILY omeprazole 40 mg capsule,delayed release(DR/EC) 40 mg PO DAILY Qty: 90 3RF calcium carbonate [Tums] 200 mg calcium (500 mg) tablet,chewable 2,000 mg PO BID Hold Instructions: Resume on 05/12/23. Please hold your nightly dose tonight and your a.m. dose tomorrow morning. prochlorperazine maleate 5 mg tablet 5 mg PO TID PRN (Reason: acute nausea) Qty: 30 0RF Discharge Instructions Instructions: Gastritis (ED) Additional Instructions: At this time your symptoms appear consistent with gastric irritation, potentially from the food that was eaten. I would recommend avoiding greasy foods or fatty foods, spicy foods citrus based foods or tomato-based products. Please continue to take your Tums at home. If you notice any worsening of your symptoms, or any new symptoms such as vomiting, diarrhea, fever, chills, shortness of breath, chest pain, numbness, weakness, or fainting , please return immediately to the emergency department for reevaluation. Please follow up with your primary care provider as soon as possible for reassessment and reevaluation. As always, it was a pleasure participating in your medical care today. Referrals: Brendon Vivar DO [Primary Care Provider] - Discharge Data Discharge Date/Time-TO BE ENTERED AT DEPARTURE: 09/28/23 04:00 HPI General Date/Time Provider Initiated Documentation: 09/28/23 03:04. HPI Narrative: This is a 27-year-old male with a past medical history significant for anxiety, depression, high cholesterol, men type I, multiple electrolyte abnormalities with subsequent parathyroidectomy on 03/26/2022 at [facility], PTSD, GERD who presents today for evaluation of epigastric pain. Patient states that it occurred about 15 to 30 minutes ago. He had a Salsberry steak this evening as well as some oatmeal which likely brought about his symptoms. He has been taking his Tums regularly as directed. He denies vomiting but does admit to nausea. He denies any lower pain. Pain is located in the left epigastric region. He denies any other complaints at this time. No fever or chills. No other modifying factors since his last visit 2 days ago. Related Data Home Medications Medication Instructions Recorded Confirmed magnesium gluconate 27 mg 27 mg PO BID #60 tabs 11/08/22 09/28/23 magnesium (500 mg) tablet calcium carbonate (Tums) 2,000 mg PO BID 02/02/23 09/28/23 calcitriol 0.5 mcg capsule 0.5 mcg PO BID #360 caps 04/21/23 09/28/23 diclofenac sodium 1 % topical gel 4 g topical QID #100 grams 04/21/23 09/28/23 methadone 10 mg/5 mL oral solution 105 mg PO QAM 06/12/23 09/28/23 polyethylene glycol 3350 17 17 g PO DAILY 06/12/23 09/28/23 gram/dose oral powder gabapentin 300 mg capsule 300 mg PO BID #180 caps 06/23/23 09/28/23 omeprazole 40 mg capsule,delayed 40 mg PO DAILY #90 caps 07/21/23 09/28/23 release cyclobenzaprine 10 mg tablet 10 mg PO TID PRN muscle spasm #30 08/18/23 09/28/23 tabs prochlorperazine maleate 5 mg 5 mg PO TID PRN acute nausea #30 09/06/23 09/28/23 tablet tabs clonazepam 1 mg tablet 1 mg PO BID #56 tabs 09/12/23 09/28/23 Previous Rx's Medication Instructions Recorded magnesium gluconate 27 mg 27 mg PO BID #60 tabs 11/08/22 magnesium (500 mg) tablet calcitriol 0.5 mcg capsule 0.5 mcg PO BID #360 caps 04/21/23 diclofenac sodium 1 % topical gel 4 g topical QID #100 grams 04/21/23 gabapentin 300 mg capsule 300 mg PO BID #180 caps 06/23/23 omeprazole 40 mg capsule,delayed 40 mg PO DAILY #90 caps 07/21/23 release cyclobenzaprine 10 mg tablet 10 mg PO TID PRN muscle spasm #30 08/18/23 tabs prochlorperazine maleate 5 mg 5 mg PO TID PRN acute nausea #30 09/06/23 tablet tabs clonazepam 1 mg tablet 1 mg PO BID #56 tabs 09/12/23 Allergies Allergy/AdvReac Type Severity Reaction Status Date / Time codeine Allergy Intermediate pass out Verified 09/28/23 03:09 Penicillins Allergy Skin Rash Verified 09/28/23 03:09 amoxicillin AdvReac Intermediate Nausea Verified 09/28/23 03:09 dextromethorphan AdvReac Intermediate Other (See Verified 09/28/23 03:09 [From NyQuil] Comment) doxylamine [From NyQuil] AdvReac Intermediate Other (See Verified 09/28/23 03:09 Comment) pseudoephedrine [From NyQuil] AdvReac Intermediate Other (See Verified 09/28/23 03:09 Comment) General Stated Complaint: Abd Prob ADRIANA: 3 Review of Systems All systems reviewed & are unremarkable except as noted in HPI and below Exam Narrative Exam Narrative: 1.Const: Well-nourished, Well-developed, appearing stated age 2.Eyes: PERRL, no conjunctival injection, and symmetrical lids. 3.ENT: Atraumatic external nose and ears. Moist MM. Neck: Symmetric, trachea midline, No thyromegaly. 4.CVS: +S1/S2, No murmurs or gallops. Peripheral pulses 2+ and equal in all extremities. Brisk capillary refill in all extremities. 5.RESP: Unlabored respiratory effort. Clear to auscultation bilaterally. No wheezes rales or rhonchi 6.GI: Soft, Nondistended, No hepatosplenomegaly. No guarding or rebound. Minimal epigastric discomfort in the left upper abdominal quadrant. No pain to McBurney's point, negative Cedillo sign. 7.MSK: Normocephalic/Atraumatic, Extremities w/o deformity or ttp No cyanosis or clubbing, Normal movement of all extremities 8.Skin: Warm, Dry. No rashes or lesions. 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 Sensation grossly intact, no focal neurologic deficits. 10.Psych: (AAO) x3. Appropriate mood and affect Course Vital Signs Vital signs: Vital Signs Temperature 36.7 C 09/28/23 03:06 Pulse 75 09/28/23 03:06 Respiratory Rate 16 09/28/23 03:06 Blood Pressure 146/95 H 09/28/23 03:06 Pulse Oximetry 99 09/28/23 03:06 Temperature 36.7 C 09/28/23 03:16 Temperature Source Oral 09/28/23 03:16 Pulse 75 09/28/23 03:16 Respiratory Rate 16 09/28/23 03:16 Respiratory Effort Normal, Non-Labored 09/28/23 03:10 Blood Pressure 146/95 H 09/28/23 03:16 Blood Pressure Position Sitting 09/28/23 03:16 Pulse Oximetry 99 09/28/23 03:16 Oxygen Delivery Method Room Air 09/28/23 03:16 Oxygen Flow Rate 0 09/28/23 03:16 Pain Level 8 09/28/23 03:16 Medical Decision Making This is a 27-year-old male with a past medical history significant for anxiety, depression, high cholesterol, men type I, multiple electrolyte abnormalities with subsequent parathyroidectomy on 03/26/2022 at [facility], PTSD, GERD who presents today for evaluation of epigastric pain. Patient states that it occurred about 15 to 30 minutes ago. He had a Salsberry steak this evening as well as some oatmeal which likely brought about his symptoms. He has been taking his Tums regularly as directed. He denies vomiting but does admit to nausea. He denies any lower pain. Pain is located in the left epigastric region. He denies any other complaints at this time. No fever or chills. No other modifying factors since his last visit 2 days ago. Exam demonstrates a notably benign appearing abdomen, minimal left upper quadrant epigastric discomfort. No other pain. No evidence of guarding or rebound. No other abnormality. Symptoms consistent with mild gastric irritation. Symptoms inconsistent with pancreatitis cholecystitis or appendicitis or AAA. Patient was given 4 mg of ODT Zofran, 10 mg of Bentyl and a GI cocktail. He had resolution of his symptoms within 15 to 20 minutes. Recommend avoiding spicy foods or greasy foods at home. Patient is requesting discharge so he can sleep at home. Patient will be discharged home. Repeat exam shows no evidence of an acute surgical abdomen or abdominal tenderness whatsoever. Discussed red flags which to return. No indication for labs or imaging emergently. I have extensively reviewed the treatment plan and discharge instructions with the patient. I have addressed all patient concerns at this time. The patient was made aware of what symptoms to monitor for that would warrant a return to the emergency department. Discussed the plan with the patient, they demonstrate verbal understanding and agreement with our assessment and plan at this time. The documentation in this chart was dictated using [employer] dictation software. Please excuse any dictation errors. Quality:SDOH Health Related Social Needs: Health related social needs transpo insecurity PFSH All Active Problems Epigastric discomfort (Acute) Hypocalcemia (Acute) Hypocalcemia (Acute) Abdominal pain, suprapubic (Acute) Chest pain (Acute) Accidental overdose (Acute) Abdominal pain (Acute) Dehydration (Acute) Biliary colic (Acute) Anxiety (Chronic) Arm pain (Acute) Hamstring tendinitis of left thigh (Acute) Pes anserine bursitis (Acute) Oral pain (Acute) Pain, dental (Acute) Hypernatremia (Acute) Cervical radiculopathy (Acute) URI (upper respiratory infection) (Acute) Left-sided Flower's palsy (Acute) Neck pain on left side (Acute) Constipation (Acute) Grief reaction (Chronic) Opiate dependence, continuous (Acute) Cellulitis (Acute) Cholelithiases (Acute) 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 Possible 2' Methadone, Clnzpm (?). Surg eval (+)/No further action. CKD (chronic kidney disease) stage 2, GFR 60-89 ml/min (Acute) GFR 64-65, with Hx FLORESITA and GFR < 45 Complex medical condition (Chronic) Serious electrolyte imbalances, with gynecomastia, possible MEN Dx, CKD and anemia with baseline anxiety and Hx PTSD. History of electrolyte imbalance (Acute) Neck pain on left side (Acute) with shoulder, upper back pain.. torticollis, radiating into left hip/leg Pulmonary nodule 1 cm or greater in diameter (Chronic) Therapeutic opioid induced constipation (Acute) Sphincter of Oddi dysfunction (Chronic) Abnormal CT scan, kidney (Acute) Intrahepatic bile duct dilation (Acute) Common bile duct dilatation (Chronic) Has been dilated for quite some time, now more-so. Normal LFTs. Known gallstones. Abdominal pain (Acute) Iatrogenic hypocalcemia (Acute) Multiple endocrine neoplasia type I (Chronic) Chronic constipation (Chronic) Primary hyperparathyroidism (Chronic) Depression (Chronic) Hypomagnesemia (Chronic) Hypocalcemia (Chronic) Depression (Chronic) Suicidal ideation (Acute) Elevated parathyroid hormone (Acute) Family history of coronary arteriosclerosis (Chronic) Father of [place] at 50, mother had [place] at 42 Severe anxiety with panic (Chronic) Cellulitis (Acute) Medical History Hypokalemia Hypocalcemia Anxiety Depression Hyperlipidemia Family history of multiple endocrine neoplasia, type 1 PTSD (post-traumatic stress disorder) Per pt. states no triggers at this time. Surgical History H/O parathyroidectomy Family History Mother Anxiety Asthma Depression Sister Anxiety Depression Father Cancer lung & stomach Depression Diabetes Hypertension MEN 1 (multiple endocrine neoplasia) Social History Smoking/Tobacco Use Status: Never Smoking risk assessment performed?: Yes Alcohol Intake: never Drug use: Rarely Substance use type: does not use and former substance user Adopted: No Caregiver/Support person: No Foster care: No Household members: none Housing: apartment Number of Children: 0 Communication Needs: None Education Level: high school Do you need help understanding health information?: Never 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 and animals: Yes (Ally) Pets and animals: dog(s) Sexually active: No Do you think of yourself as: straight/heterosexual Current gender identity: male What is your relationship status?: How often do you talk on the phone with friends or family?: twice per week How often do you get together with friends or relatives?: never Do you belong to any clubs or organized social groups?: no Panel score (0-1 are the most socially isolated patients): 0 What type of physical activity do you participate in: walking Duration: 15-30 minutes/day Frequency: 5-6 times per week Maryam/Latter-Day: Alevism Special maryam needs: No Seatbelt use: always Helmet use: Yes Helmet use: always Drive 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
== END 2023-09-28 04:00 | disposition home or self-care (01) ==
PROVIDERS: Emergency Provider Student in an Organized Health Care Education/Training Program; PCP Family Medicine
DX: R10.13 Epigastric pain (principal); R11.0 Nausea; E78.5 Hyperlipidemia, unspecified
CPT/HCPCS: 99283

== ENCOUNTER 2023-09-29 08:39 | Emergency (ER) | payer OTHER, SELFPAY ==
[2023-09-29 08:51] VITALS: BP 129/89; PULSE 114; RESP 16; TEMP 37; O2SAT 95
--- NOTE | 2023-09-29 09:00 | DI.US_ITS ---
Exam(s) US LOWER EXTREMITY VENOUS RT EXAM: US LOWER EXTREMITY VENOUS RT CLINICAL HISTORY: DVT r/o R thigh pain, hx DVT TECHNIQUE: Right lower extremity venous ultrasound performed using grayscale, color-flow, and spectr al Doppler analysis. COMPARISON: US US LOWER EXTREMITY VENOUS RT from 06/28/2022 FINDINGS: The right common femoral, femoral and popliteal veins demonstrate normal compressibility, augmentatio n, and color Doppler. The posterior tibial and peroneal veins are patent. The saphenofemoral junctio n is unremarkable. There is no evidence of a Almanza cyst. The soft tissues are unremarkable. IMPRESSION: No evidence of a right lower extremity DVT. DATA REPOSITORY:
--- NOTE | 2023-09-29 09:01 | ED.GENADUL_ITS ---
Discharge Plan Disposition Patient Disposition: Home Condition: Stable Discharge Details Clinical Impression: Right thigh pain Primary Care Provider: Brendon Vivar ED Provider: Richy Oakes Home Meds and New Rx's Prescriptions: Continued gabapentin 300 mg capsule 300 mg PO BID Qty: 180 3RF cyclobenzaprine 10 mg tablet 10 mg PO TID PRN (Reason: muscle spasm) Qty: 30 3RF clonazepam 1 mg tablet 1 mg PO BID Qty: 56 0RF methadone 10 mg/5 mL solution 105 mg PO QAM magnesium gluconate 27 mg magnesium (500 mg) tablet 27 mg PO BID Qty: 60 3RF Patient Comments: Pt states he has been taking 1,000 mg twice a day x 2 weeks. - ML 09/26/23 calcitriol 0.5 mcg capsule 0.5 mcg PO BID Qty: 360 3RF Hold Instructions: Resume on 06/15/22. diclofenac sodium 1 % gel 4 g topical QID Qty: 100 6RF Rx Instructions: apply to single knee, ankle, foot; for foot includes sole/toes/top of foot polyethylene glycol 3350 17 gram/dose powder 17 g PO DAILY omeprazole 40 mg capsule,delayed release(DR/EC) 40 mg PO DAILY Qty: 90 3RF calcium carbonate [Tums] 200 mg calcium (500 mg) tablet,chewable 2,000 mg PO BID Hold Instructions: Resume on 05/12/23. Please hold your nightly dose tonight and your a.m. dose tomorrow morning. prochlorperazine maleate 5 mg tablet 5 mg PO TID PRN (Reason: acute nausea) Qty: 30 0RF Discharge Instructions Instructions: Leg Pain (ED) Additional Instructions: You were seen in the emergency department for the pain of your right thigh, there is no significant warmth to touch or redness to the area, your ultrasound is negative for any clot pathology this may be musculoskeletal leg pain. Please take Tylenol and ibuprofen as needed, perform gentle stretching exercises, ret urn for any significant changes like inability to move the leg, severe numbness, increasing pain, redness, skin lesions. Referrals: Brendon Vivar DO [Primary Care Provider] - Discharge Data Discharge Date/Time-TO BE ENTERED AT DEPARTURE: 09/29/23 11:16 HPI General Date/Time Provider Initiated Documentation: 09/29/23 08:42 . HPI Narrative: 27 year-old male presents to ED today by POV/ambulating with a chief complaint of R thigh pain, equates to similar past episode of DVT of L LE with onset starting this past . Quality described as pain with weight-bearing, states question of burning sensation in medial thigh/hamstring area, no ra diation to unilateral leg swelling, redness, warmth to touch, skin changes. Severity is described as moderate. Palliating factors include nothing specific attempted. Provoking factors include nothing specific. Patient not anticoagulated. Related Data Home Medications Medication Instructions Recorded Confirmed magnesium gluconate 27 mg 27 mg PO BID #60 tabs 11/08/22 09/29/23 magnesium (500 mg) tablet calcium carbonate (Tums) 2,000 mg PO BID 02/02/23 09/29/23 calcitriol 0.5 mcg capsule 0.5 mcg PO BID #360 caps 04/21/23 09/29/23 diclofenac sodium 1 % topical gel 4 g topical QID #100 grams 04/21/23 09/29/23 methadone 10 mg/5 mL oral solution 105 mg PO QAM 06/12/23 09/29/23 polyethylene glycol 3350 17 17 g PO DAILY 06/12/23 09/29/23 gram/dose oral powder gabapentin 300 mg capsule 300 mg PO BID #180 caps 06/23/23 09/29/23 omeprazole 40 mg capsule,delayed 40 mg PO DAILY #90 caps 07/21/23 09/29/23 release cyclobenzaprine 10 mg tablet 10 mg PO TID PRN muscle spasm #30 08/18/23 09/29/23 tabs prochlorperazine maleate 5 mg 5 mg PO TID PRN acute nausea #30 09/06/23 09/29/23 tablet tabs clonazepam 1 mg tablet 1 mg PO BID #56 tabs 09/12/23 09/29/23 Previous Rx's Medication Instructions Recorded magnesium gluconate 27 mg 27 mg PO BID #60 tabs 11/08/22 magnesium (500 mg) tablet calcitriol 0.5 mcg capsule 0.5 mcg PO BID #360 caps 04/21/23 diclofenac sodium 1 % topical gel 4 g topical QID #100 grams 04/21/23 gabapentin 300 mg capsule 300 mg PO BID #180 caps 06/23/23 omeprazole 40 mg capsule,delayed 40 mg PO DAILY #90 caps 07/21/23 release cyclobenzaprine 10 mg tablet 10 mg PO TID PRN muscle spasm #30 08/18/23 tabs prochlorperazine maleate 5 mg 5 mg PO TID PRN acute nausea #30 09/06/23 tablet tabs clonazepam 1 mg tablet 1 mg PO BID #56 tabs 09/12/23 Allergies Allergy/AdvReac Type Severity Reaction Status Date / Time codeine Allergy Intermediate pass out Verified 09/30/23 09:02 Penicillins Allergy Skin Rash Verified 09/30/23 09:02 amoxicillin AdvReac Intermediate Nausea Verified 09/30/23 09:02 dextromethorphan AdvReac Intermediate Other (See Verified 09/30/23 09:02 [From NyQuil] Comment) doxylamine [From NyQuil] AdvReac Intermediate Other (See Verified 09/30/23 09:02 Comment) pseudoephedrine [From NyQuil] AdvReac Intermediate Other (See Verified 09/30/23 09:02 Comment) General Stated Complaint: Vascular ADRIANA: 3 Review of Systems All systems reviewed & are unremarkable except as noted in HPI and below Exam Narrative Exam Narrative: GENERAL APPEARANCE: Well-nourished, non-toxic, awake and alert, atraumatic, no acute distress. SKIN: Warm, pink, dry, intact, without rashes/lesions/ulcerations. HEAD: Normocephalic, atraumatic, normal hair distribution for gender/age. EYES: Pupils PERRLA, EOMs intact without nystagmus, normal conjunctiva, no exudates on lids/lashes. ENT: Nares patent, no circumoral cyanosis, no facial swelling NECK: Supple, trachea midline, painless cervical ROM. LUNGS/CHEST: Non-labored respirations, normal A/P diameter, symmetrical expansion, no chest wall deformity HEART (CV/PV): No peripheral edema, no JVD. ABDOMEN: Soft, non-distended, no guarding. MSK: Normal ROM, no swelling/deformity to bilateral UEs or LEs, moving all extremities without weakness, no cyanosis, spine midline without tenderness, normal curvature. R LE: No unilateral leg swelling at the tibial tuberosity, no skin changes, Homans negative, neurovascular intact in distal right lower extremity, medial thigh tenderness without warmth to touch or skin changes NEURO: Mental Status AAOx4 - alert to person, place, time, events No facial droop, no forehead involvement. Motor: No focal weakness - strength 5/5 in bilateral UEs and LEs, proximal and distal, symmetric. Sensory: sensation intact to light touch globally. Gait normal: patient ambulated without ataxia into ED room. PSYCH: euthymic, cooperative, pleasant, appropriate speech Course Vital Signs Vital signs: Vital Signs Temperature 37.0 C 09/29/23 08:51 Pulse 114 H 09/29/23 08:51 Respiratory Rate 16 09/29/23 08:51 Blood Pressure 129/89 09/29/23 08:51 Pulse Oximetry 95 09/29/23 08:51 Temperature 37.0 C 09/29/23 08:51 Temperature Source Temporal Artery Scan 09/29/23 08:51 Pulse 114 H 09/29/23 08:51 Respiratory Rate 16 09/29/23 08:51 Respiratory Effort Normal, Non-Labored, Short of Breath 09/29/23 08:53 Blood Pressure 129/89 09/29/23 08:51 Blood Pressure Position Sitting 09/29/23 08:51 Pulse Oximetry 95 09/29/23 08:51 Oxygen Delivery Method Room Air 09/29/23 08:51 Oxygen Flow Rate 0 09/29/23 08:51 Pain Level 5 09/29/23 08:51 Medical Decision Making This dictation utilizes [id number] dictation software and may contain unedited grammatical errors. 27 y/o M presents to ED today with a chief complaint of R thigh pain, equates to past episode of DVT of L leg in remote history, endorsees worsening since - denies skin changes, feels warm inside. Patients' medical history: Complex medical history, history of DVT, history of parathyroidectomy, biliary colic, pes anserine bursitis. Family and social history: Noncontributory. Pertinent exam findings / vital signs include R LE: No unilateral leg swelling at the tibial tuberosity, no skin changes, Homans negative, neurovascular intact in distal right lower extremity, medial thigh tenderness without warmth to touch or skin changes. Differential / pathologies of concern include DVT, MSK Strain, Unlikely cellulitis, not NV compromise. Diagnostic studies of: -US R LE DVT Study - negative. Interventions of: -none. ED Course/Assessment/Plan: 27-year-old male presents with right medial thigh pain, has no signs of unilateral leg swelling but does have history of DVT so ultrasound was performed and shows no DVT, I question whether this is musculoskeletal leg pain as he has significant history of various orthopedic and musculoskeletal pains. He has no severe leg swelling, no skin changes, no warmth to touch and no signs of neurovascular compromise, counseled on stretching and [id number] analgesics as needed, strict return criteria for developing redness, severe worsening of pain with unilateral leg swelling. Findings not consistent with DVT, neurovascular compromise, cellulitis. Disposition of right thigh pain. Patient verbalized understanding of the plan and return to ED criteria and engaged in shared decision making. Medical Records Medical records reviewed: Yes I reviewed the patient's medical records. Imaging Data Radiologic Study: Attestation: I personally reviewed and interpreted this imaging study as follows: Imaging: Ultrasound Radiologist's impression: EXAM: US LOWER EXTREMITY VENOUS RT CLINICAL HISTORY: DVT r/o R thigh pain, hx DVT TECHNIQUE: Right lower extremity venous ultrasound performed using grayscale, color-flow, and spectral Doppler analysis. COMPARISON: US US LOWER EXTREMITY VENOUS RT from 06/28/2022 FINDINGS: The right common femoral, femoral and popliteal veins demonstrate normal compressibility, augmentation, and color Doppler. The posterior tibial and peroneal veins are patent. The saphenofemoral junction is unremarkable. There is no evidence of a Almanza cyst. The soft tissues are unremarkable. IMPRESSION: No evidence of a right lower extremity DVT. Quality:SDOH Health Related Social Needs: Health related social needs transpo insecurity PFSH All Active Problems (Updated 09/30/23 @ 09:40 by Mariann Gipson DNP) Testicle lump (Acute) Right thigh pain (Acute) Epigastric discomfort (Acute) Hypocalcemia (Acute) Hypocalcemia (Acute) Abdominal pain, suprapubic (Acute) Chest pain (Acute) Accidental overdose (Acute) Abdominal pain (Acute) Dehydration (Acute) Biliary colic (Acute) Anxiety (Chronic) Arm pain (Acute) Hamstring tendinitis of left thigh (Acute) Pes anserine bursitis (Acute) Oral pain (Acute) Hypernatremia (Acute) Cervical radiculopathy (Acute) URI (upper respiratory infection) (Acute) Left-sided Flower's palsy (Acute) Neck pain on left side (Acute) Constipation (Acute) Grief reaction (Chronic) Opiate dependence, continuous (Acute) Cellulitis (Acute) Cholelithiases (Acute) 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 Possible 2' Methadone, Clnzpm (?). Surg eval (+)/No further action. CKD (chronic kidney disease) stage 2, GFR 60-89 ml/min (Acute) GFR 64-65, with Hx FLORESITA and GFR < 45 Complex medical condition (Chronic) Serious electrolyte imbalances, with gynecomastia, possible MEN Dx, CKD and anemia with baseline anxiety and Hx PTSD. History of electrolyte imbalance (Acute) Neck pain on left side (Acute) with shoulder, upper back pain.. torticollis, radiating into left hip/leg Pulmonary nodule 1 cm or greater in diameter (Chronic) Therapeutic opioid induced constipation (Acute) Sphincter of Oddi dysfunction (Chronic) Abnormal CT scan, kidney (Acute) Intrahepatic bile duct dilation (Acute) Common bile duct dilatation (Chronic) Has been dilated for quite some time, now more-so. Normal LFTs. Known gallstones. Abdominal pain (Acute) Iatrogenic hypocalcemia (Acute) Multiple endocrine neoplasia type I (Chronic) Chronic constipation (Chronic) Primary hyperparathyroidism (Chronic) Depression (Chronic) Hypomagnesemia (Chronic) Hypocalcemia (Chronic) Depression (Chronic) Suicidal ideation (Acute) Elevated parathyroid hormone (Acute) Family history of coronary arteriosclerosis (Chronic) Father of [place] at 50, mother had [place] at 42 Severe anxiety with panic (Chronic) Cellulitis (Acute) Medical History Hypokalemia Hypocalcemia Anxiety Depression Hyperlipidemia Family history of multiple endocrine neoplasia, type 1 PTSD (post-traumatic stress disorder) Per pt. states no triggers at this time. Surgical History H/O parathyroidectomy Family History Mother Anxiety Asthma Depression Sister Anxiety Depression Father Cancer lung & stomach Depression Diabetes Hypertension MEN 1 (multiple endocrine neoplasia) Social History Smoking/Tobacco Use Status: Never Smoking risk assessment performed?: Yes Alcohol Intake: never Drug use: Rarely Substance use type: does not use and former substance user Adopted: No Caregiver/Support person: No Foster care: No Household members: none Housing: apartment Number of Children: 0 Communication Needs: None Education Level: high school Do you need help understanding health information?: Never 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 and animals: Yes (Ally) Pets and animals: dog(s) Sexually active: No Do you think of yourself as: straight/heterosexual Current gender identity: male What is your relationship status?: How often do you talk on the phone with friends or family?: twice per week How often do you get together with friends or relatives?: never Do you belong to any clubs or organized social groups?: no Panel score (0-1 are the most socially isolated patients): 0 What type of physical activity do you participate in: walking Duration: 15-30 minutes/day Frequency: 5-6 times per week Maryam/Muslim: Jehovah'S Witness Special maryam needs: No Seatbelt use: always Helmet use: Yes Helmet use: always Drive 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 auto transport 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
[2023-09-29 09:28] VITALS: RESP 15
[2023-09-29 11:15] VITALS: BP 111/64; PULSE 79; RESP 18; O2SAT 98
== END 2023-09-29 11:16 | disposition home or self-care (01) ==
PROVIDERS: Emergency Provider Physician Assistant; PCP Family Medicine
DX: M79.651 Pain in right thigh (principal); Z86.718 Personal history of other venous thrombosis and embolism; Z79.899 Other long term (current) drug therapy
CPT/HCPCS: 99284; 93971

== ENCOUNTER 2023-10-02 05:00 | Outpatient (CLI) | payer MEDICAID, SELFPAY ==
[2023-10-02 13:04] LABS: LDH 320 U/L (85-227)
[2023-10-03 09:50] LABS: AFP Tumor Marker <2.5 ng/mL (<8.1)
[2023-10-03 22:30] LABS: Beta-HCG, Quant, Tumor Marker <0.6 IU/L (<1.4)
== END 2023-10-02 05:01 | disposition home or self-care (01) ==
LOC: LBO 05:00
PROVIDERS: PCP Family Medicine; Visit Provider Nurse Practitioner Gerontology
DX: N50.89 Other specified disorders of the male genital organs (principal)
CPT/HCPCS: 36415; 82105; 83615; 84702

== ENCOUNTER 2023-10-06 19:15 | Emergency (ER) | payer OTHER, SELFPAY ==
--- NOTE | 2023-10-06 19:15 | DI.RAD_ITS ---
Exam(s) XR ANKLE RT COMPLETE EXAM: XR ANKLE RT COMPLETE CLINICAL HISTORY: pain. TECHNIQUE: 2D digital imaging was performed. COMPARISON: CR,XR XR ANKLE RT COMPLETE from 12/18/2022 FINDINGS: 3 views There is soft tissue swelling medially but no evidence of fracture or widening the ankle mortise. Ta lar dome unremarkable. Bone density normal. No osseous lesions. No evidence of osseous tarsal coal ition. IMPRESSION: No acute osseous findings in the ankle. DATA REPOSITORY: RADIATION DOSE DELIVERED:
[2023-10-06 19:18] VITALS: BP 139/84; PULSE 120; RESP 16; TEMP 36.3; O2SAT 99
--- NOTE | 2023-10-06 19:39 | ED.GENADUL_ITS ---
Discharge Plan Disposition Patient Disposition: Home Condition: Stable Discharge Details Clinical Impression: Ankle pain Primary Care Provider: Brendon Vivar ED Provider: Pauline Alonso Home Meds and New Rx's Prescriptions: No Action gabapentin 300 mg capsule 300 mg PO BID Qty: 180 3RF cyclobenzaprine 10 mg tablet 10 mg PO TID PRN (Reason: muscle spasm) Qty: 30 3RF clonazepam 1 mg tablet 1 mg PO BID Qty: 56 0RF methadone 10 mg/5 mL solution 105 mg PO QAM magnesium gluconate 27 mg magnesium (500 mg) tablet 27 mg PO BID Qty: 60 3RF Patient Comments: Pt states he has been taking 1,000 mg twice a day x 2 weeks. - ML 09/26/23 calcitriol 0.5 mcg capsule 0.5 mcg PO BID Qty: 360 3RF Hold Instructions: Resume on 06/15/22. diclofenac sodium 1 % gel 4 g topical QID Qty: 100 6RF Rx Instructions: apply to single knee, ankle, foot; for foot includes sole/toes/top of foot polyethylene glycol 3350 17 gram/dose powder 17 g PO DAILY omeprazole 40 mg capsule,delayed release(DR/EC) 40 mg PO DAILY Qty: 90 3RF calcium carbonate [Tums] 200 mg calcium (500 mg) tablet,chewable 2,000 mg PO BID Hold Instructions: Resume on 05/12/23. Please hold your nightly dose tonight and your a.m. dose tomorrow morning. prochlorperazine maleate 5 mg tablet 5 mg PO TID PRN (Reason: acute nausea) Qty: 30 0RF Discharge Instructions Instructions: Arthralgia (ED) Additional Instructions: Take over the counter pain medication as needed. Apply ice pack for pain relief. Follow-up with your PCP and return to the Emergency Department with any worsening symptoms or any other concerns. HPI General Date/Time Provider Initiated Documentation: 10/06/23 19:16 . HPI Narrative: The patient is a 27-year-old male with history of recurrent abdominal pain who comes the emergency department for right ankle pain. The patient reports that around 530 or 6:00 this evening while he was just sitting he developed pain on his right ankle. Denies any trauma or injury to the ankle. Denies history of similar type problem in the past. Reports it hurts to move and to touch. Denies rashes or skin changes to the region. Reports he was at his baseline health prior. Denies numbness or tingly sensation. Reports he had not taken medication to help with his symptoms. Reports he still able to bear weight to the ankle. Reports he was at his baseline health prior. Related Data Home Medications Medication Instructions Recorded Confirmed magnesium gluconate 27 mg 27 mg PO BID #60 tabs 11/08/22 10/01/23 magnesium (500 mg) tablet calcium carbonate (Tums) 2,000 mg PO BID 02/02/23 10/01/23 calcitriol 0.5 mcg capsule 0.5 mcg PO BID #360 caps 04/21/23 10/01/23 diclofenac sodium 1 % topical gel 4 g topical QID #100 grams 04/21/23 10/01/23 methadone 10 mg/5 mL oral solution 105 mg PO QAM 06/12/23 10/01/23 polyethylene glycol 3350 17 17 g PO DAILY 06/12/23 10/01/23 gram/dose oral powder gabapentin 300 mg capsule 300 mg PO BID #180 caps 06/23/23 10/01/23 omeprazole 40 mg capsule,delayed 40 mg PO DAILY #90 caps 07/21/23 10/01/23 release cyclobenzaprine 10 mg tablet 10 mg PO TID PRN muscle spasm #30 08/18/23 10/01/23 tabs prochlorperazine maleate 5 mg 5 mg PO TID PRN acute nausea #30 09/06/23 10/01/23 tablet tabs clonazepam 1 mg tablet 1 mg PO BID #56 tabs 09/12/23 10/01/23 Previous Rx's Medication Instructions Recorded magnesium gluconate 27 mg 27 mg PO BID #60 tabs 11/08/22 magnesium (500 mg) tablet calcitriol 0.5 mcg capsule 0.5 mcg PO BID #360 caps 04/21/23 diclofenac sodium 1 % topical gel 4 g topical QID #100 grams 04/21/23 gabapentin 300 mg capsule 300 mg PO BID #180 caps 06/23/23 omeprazole 40 mg capsule,delayed 40 mg PO DAILY #90 caps 07/21/23 release cyclobenzaprine 10 mg tablet 10 mg PO TID PRN muscle spasm #30 08/18/23 tabs prochlorperazine maleate 5 mg 5 mg PO TID PRN acute nausea #30 03/23/24 tablet tabs clonazepam 1 mg tablet 1 mg PO BID #56 tabs 09/12/23 Allergies Allergy/AdvReac Type Severity Reaction Status Date / Time codeine Allergy Intermediate pass out Verified 10/01/23 07:37 Penicillins Allergy Skin Rash Verified 10/01/23 07:37 amoxicillin AdvReac Intermediate Nausea Verified 10/01/23 07:37 dextromethorphan AdvReac Intermediate Other (See Verified 10/01/23 07:37 [From NyQuil] Comment) doxylamine [From NyQuil] AdvReac Intermediate Other (See Verified 10/01/23 07:37 Comment) pseudoephedrine [From NyQuil] AdvReac Intermediate Other (See Verified 10/01/23 07:37 Comment) General Stated Complaint: Orthopedic ADRIANA: 4 Review of Systems Narrative: Review of systems are negative except as mentioned. Exam Narrative Exam Narrative: The patient is in no acute distress. The patient has tenderness palpation along the medial aspect of the right ankle. The right ankle has no obvious deformity. The ankle is not swollen. There is no limitation in range of motion testing to the entire right ankle. He has no tenderness to palpation to all the digits of the right foot. He has no right foot tenderness to palpation. He has right no calf, knee tenderness to palpation. He has strong right dorsalis pedis pulse. He has intact station to light touch throughout the entire right foot. Course Vital Signs Vital signs: Vital Signs Temperature 36.3 C L 10/06/23 19:18 Pulse 120 H 10/06/23 19:18 Respiratory Rate 16 10/06/23 19:18 Blood Pressure 139/84 10/06/23 19:18 Pulse Oximetry 99 10/06/23 19:18 Temperature 36.3 C L 10/06/23 19:18 Temperature Source Oral 10/06/23 19:18 Pulse 120 H 10/06/23 19:18 Respiratory Rate 16 10/06/23 19:18 Respiratory Effort Normal, Non-Labored 10/06/23 19:25 Blood Pressure 139/84 10/06/23 19:18 Blood Pressure Position Sitting 10/06/23 19:18 Pulse Oximetry 99 10/06/23 19:18 Oxygen Delivery Method Room Air 10/06/23 19:18 Oxygen Flow Rate 0 10/06/23 19:18 Pain Level 4 10/06/23 19:26 Medical Decision Making X-ray has been ordered secondary to pain complaint. X-rays done of the right ankle and it shows as interpreted by the radiologist: Negative right ankle. I updated the patient on workup result and of plan for discharge. He is encouraged to take [id number] medication as needed and ice pack for additional pain relief. He is encouraged to follow-up with his primary care doctor and or to return to the emergency department sooner with any other concerns. Quality:SDOH Health Related Social Needs: Health related social needs transpo insecurity PFSH All Active Problems (Updated 10/06/23 @ 20:18 by Pauline Alonso DO) Ankle pain (Acute) Testicle lump (Acute) Right thigh pain (Acute) Epigastric discomfort (Acute) Hypocalcemia (Acute) Hypocalcemia (Acute) Abdominal pain, suprapubic (Acute) Chest pain (Acute) Accidental overdose (Acute) Abdominal pain (Acute) Dehydration (Acute) Biliary colic (Acute) Hamstring tendinitis of left thigh (Acute) Pes anserine bursitis (Acute) Hypernatremia (Acute) Cervical radiculopathy (Acute) URI (upper respiratory infection) (Acute) Left-sided Flower's palsy (Acute) Neck pain on left side (Acute) Constipation (Acute) Grief reaction (Chronic) Opiate dependence, continuous (Acute) Cellulitis (Acute) Cholelithiases (Acute) 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 Possible 2' Methadone, Clnzpm (?). Surg eval (+)/No further action. CKD (chronic kidney disease) stage 2, GFR 60-89 ml/min (Acute) GFR 64-65, with Hx FLORESITA and GFR < 45 Complex medical condition (Chronic) Serious electrolyte imbalances, with gynecomastia, possible MEN Dx, CKD and anemia with baseline anxiety and Hx PTSD. History of electrolyte imbalance (Acute) Neck pain on left side (Acute) with shoulder, upper back pain.. torticollis, radiating into left hip/leg Pulmonary nodule 1 cm or greater in diameter (Chronic) Therapeutic opioid induced constipation (Acute) Sphincter of Oddi dysfunction (Chronic) Abnormal CT scan, kidney (Acute) Intrahepatic bile duct dilation (Acute) Common bile duct dilatation (Chronic) Has been dilated for quite some time, now more-so. Normal LFTs. Known gallstones. Abdominal pain (Acute) Iatrogenic hypocalcemia (Acute) Multiple endocrine neoplasia type I (Chronic) Chronic constipation (Chronic) Primary hyperparathyroidism (Chronic) Depression (Chronic) Hypomagnesemia (Chronic) Hypocalcemia (Chronic) Depression (Chronic) Suicidal ideation (Acute) Elevated parathyroid hormone (Acute) Family history of coronary arteriosclerosis (Chronic) Father of [place] at 50, mother had LA at 42 Severe anxiety with panic (Chronic) Cellulitis (Acute) Medical History Hypokalemia Hypocalcemia Anxiety Depression Hyperlipidemia Family history of multiple endocrine neoplasia, type 1 PTSD (post-traumatic stress disorder) Per pt. states no triggers at this time. Surgical History H/O parathyroidectomy Family History Mother Anxiety Asthma Depression Sister Anxiety Depression Father Cancer lung & stomach Depression Diabetes Hypertension MEN 1 (multiple endocrine neoplasia) Social History Smoking/Tobacco Use Status: Never Smoking risk assessment performed?: Yes Alcohol Intake: never Drug use: Rarely Substance use type: does not use and former substance user Adopted: No Caregiver/Support person: No Foster care: No Household members: none Housing: apartment Number of Children: 0 Communication Needs: None Education Level: high school Do you need help understanding health information?: Never 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 and animals: Yes (Ally) Pets and animals: dog(s) Sexually active: No Do you think of yourself as: straight/heterosexual Current gender identity: male What is your relationship status?: How often do you talk on the phone with friends or family?: twice per week How often do you get together with friends or relatives?: never Do you belong to any clubs or organized social groups?: no Panel score (0-1 are the most socially isolated patients): 0 What type of physical activity do you participate in: walking Duration: 15-30 minutes/day Frequency: 5-6 times per week Maryam/Synagogue: [employer]ian[employer] Special maryam needs: No Seatbelt use: always Helmet use: Yes Helmet use: always Drive 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 emergency medical technician/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
--- NOTE | 2023-10-06 20:05 | DI.VRAD_ITS ---
PROCEDURE INFORMATION: Exam: XR Right Ankle Exam date and time: 10/06/2023 7:29 PM Age: 27 years old Clinical indication: Ankle; Right; Patient HX: Pain, no trauma TECHNIQUE: Imaging protocol: Radiologic exam of the right ankle. Views: 3 or more views. COMPARISON: CR XR ANKLE RT COMPLETE 12/18/2022 6:32 AM FINDINGS: Bones/joints: Osseous alignment is normal. No acute fracture. No significant arthritic change. Soft tissues: Normal. IMPRESSION: Negative right ankle Dictated and Authenticated by: Andrei Cantu MD. Ordering:DAVID Carpenter MD
== END 2023-10-06 20:28 | disposition home or self-care (01) ==
PROVIDERS: Emergency Provider Emergency Medicine; PCP Family Medicine
DX: M25.571 Pain in right ankle and joints of right foot (principal)
CPT/HCPCS: 99283; 73610

== ENCOUNTER 2023-10-07 18:14 | Emergency (ER) | payer OTHER, SELFPAY ==
[2023-10-07] VITALS (13 sets, daily range): BP systolic 133–144; BP diastolic 80–93; PULSE 76–118; RESP 16–18; TEMP 36.2; O2SAT 97–98
--- NOTE | 2023-10-07 18:15 | RT.EKG_ITS ---
APPROVED REPORT Exam: Resting ECG Reason for Exam: chest pain Patient Location: E HR:118 bpm ECG Measurements Heart Rate 118 AXIS WI 159 P 46 QRSd 95 QRS 77 QT 325 T 25 QTc 456 Conclusion Sinus tachycardia at a rate of 118 without acute ischemic change with normal intervals.
--- NOTE | 2023-10-07 19:04 | ED.GENADUL_ITS ---
Discharge Plan Disposition Patient Disposition: Home Condition: Stable Discharge Details Chief Complaint: GenMedical Clinical Impression: Heart palpitations, Hypocalcemia Primary Care Provider: Brendon Vivar ED Provider: Pauline Alonso Home Meds and New Rx's Prescriptions: No Action gabapentin 300 mg capsule 300 mg PO BID Qty: 180 3RF cyclobenzaprine 10 mg tablet 10 mg PO TID PRN (Reason: muscle spasm) Qty: 30 3RF clonazepam 1 mg tablet 1 mg PO BID Qty: 56 0RF methadone 10 mg/5 mL solution 105 mg PO QAM magnesium gluconate 27 mg magnesium (500 mg) tablet 27 mg PO BID Qty: 60 3RF Patient Comments: Pt states he has been taking 1,000 mg twice a day x 2 weeks. - ML 09/26/23 calcitriol 0.5 mcg capsule 0.5 mcg PO BID Qty: 360 3RF Hold Instructions: Resume on 06/15/22. diclofenac sodium 1 % gel 4 g topical QID Qty: 100 6RF Rx Instructions: apply to single knee, ankle, foot; for foot includes sole/toes/top of foot polyethylene glycol 3350 17 gram/dose powder 17 g PO DAILY omeprazole 40 mg capsule,delayed release(DR/EC) 40 mg PO DAILY Qty: 90 3RF calcium carbonate [Tums] 200 mg calcium (500 mg) tablet,chewable 2,000 mg PO BID Hold Instructions: Resume on 05/12/23. Please hold your nightly dose tonight and your a.m. dose tomorrow morning. prochlorperazine maleate 5 mg tablet 5 mg PO TID PRN (Reason: acute nausea) Qty: 30 0RF Discharge Instructions Instructions: Heart Palpitations (ED) Additional Instructions: Please follow-up with your primary care provider. Return to the Emergency Department with any worsening symptoms or any other concerns. HPI General Date/Time Provider Initiated Documentation: 10/07/23 18:29 . HPI Narrative: The patient is a 27-year-old male with a history of hypocalcemia secondary to hyper parathyroidectomy, history of multiple endocrine neoplasia, anxiety, depression comes to the emergency department for palpitation. The patient reports that he has had palpitation constantly for the past couple days. Reports when this happens it is usually to do with his calcium. Reports he has been taking all of his medications as prescribed. Denies any recent changes to medication. Reports he feels his heart is pounding. Denies any nausea, vomiting. Reports appetite has been normal. Denies shortness of breath but reports that his heart does feel like it is pounding. Reports he has an appointment with his primary care doctor this Friday but because of continued symptoms came into the emergency department for an evaluation. Related Data Home Medications Medication Instructions Recorded Confirmed magnesium gluconate 27 mg 27 mg PO BID #60 tabs 11/08/22 10/07/23 magnesium (500 mg) tablet calcium carbonate (Tums) 2,000 mg PO BID 02/02/23 10/07/23 calcitriol 0.5 mcg capsule 0.5 mcg PO BID #360 caps 04/21/23 10/07/23 diclofenac sodium 1 % topical gel 4 g topical QID #100 grams 04/21/23 10/07/23 methadone 10 mg/5 mL oral solution 105 mg PO QAM 06/12/23 10/07/23 polyethylene glycol 3350 17 17 g PO DAILY 06/12/23 10/07/23 gram/dose oral powder gabapentin 300 mg capsule 300 mg PO BID #180 caps 06/23/23 10/07/23 omeprazole 40 mg capsule,delayed 40 mg PO DAILY #90 caps 07/21/23 10/07/23 release cyclobenzaprine 10 mg tablet 10 mg PO TID PRN muscle spasm #30 08/18/23 10/07/23 tabs prochlorperazine maleate 5 mg 5 mg PO TID PRN acute nausea #30 09/06/23 10/07/23 tablet tabs clonazepam 1 mg tablet 1 mg PO BID #56 tabs 09/12/23 10/07/23 Previous Rx's Medication Instructions Recorded magnesium gluconate 27 mg 27 mg PO BID #60 tabs 11/08/22 magnesium (500 mg) tablet calcitriol 0.5 mcg capsule 0.5 mcg PO BID #360 caps 04/21/23 diclofenac sodium 1 % topical gel 4 g topical QID #100 grams 04/21/23 gabapentin 300 mg capsule 300 mg PO BID #180 caps 06/23/23 omeprazole 40 mg capsule,delayed 40 mg PO DAILY #90 caps 07/21/23 release cyclobenzaprine 10 mg tablet 10 mg PO TID PRN muscle spasm #30 08/18/23 tabs prochlorperazine maleate 5 mg 5 mg PO TID PRN acute nausea #30 09/06/23 tablet tabs clonazepam 1 mg tablet 1 mg PO BID #56 tabs 09/12/23 Allergies Allergy/AdvReac Type Severity Reaction Status Date / Time codeine Allergy Intermediate pass out Verified 10/07/23 18:33 Penicillins Allergy Skin Rash Verified 10/07/23 18:33 amoxicillin AdvReac Intermediate Nausea Verified 10/07/23 18:33 dextromethorphan AdvReac Intermediate Other (See Verified 10/07/23 18:33 [From NyQuil] Comment) doxylamine [From NyQuil] AdvReac Intermediate Other (See Verified 10/07/23 18:33 Comment) pseudoephedrine [From NyQuil] AdvReac Intermediate Other (See Verified 10/07/23 18:33 Comment) General Stated Complaint: GenMedical ADRIANA: 3 Review of Systems Narrative: Review of systems are negative except as mention. Exam Narrative Exam Narrative: The patient is in no acute distress. Oral mucous membranes are moist. Patient is tachycardic but regular. Lungs are clear to auscultation. Patient has equal radial pulses. Skin is warm and dry. Abdomen is soft with normal bowel sounds and nontender to palpation throughout. The patient has lower extremity edema with bilateral lower extremity tenderness which patient reports is baseline for him and unchanged. Course Vital Signs Vital signs: Vital Signs Temperature 36.2 C L 10/07/23 18:16 Pulse 118 H 10/07/23 18:16 Respiratory Rate 18 10/07/23 18:16 Blood Pressure 133/93 H 10/07/23 18:16 Pulse Oximetry 97 10/07/23 18:16 Temperature 36.2 C L 10/07/23 18:16 Temperature Source Tympanic 10/07/23 18:16 Pulse 99 H 10/07/23 18:45 Respiratory Rate 16 10/07/23 18:30 Respiratory Effort Normal, Non-Labored 10/07/23 18:30 Respiratory Depth Normal 10/07/23 18:30 Respiratory Pattern Normal 10/07/23 18:30 Blood Pressure 133/93 H 10/07/23 18:16 Blood Pressure Position Sitting 10/07/23 18:16 Pulse Oximetry 97 10/07/23 18:16 Oxygen Delivery Method Room Air 10/07/23 18:16 Oxygen Flow Rate 0 04/23/24 18:16 Pain Level 4 10/07/23 18:16 Medical Decision Making Medical Records Medical records narrative: EKG has been done and he is found to be in sinus tachycardia otherwise no ndiagnostic. Checking the patient's blood work. Physical exam is otherwise benign apart from tachycardia that is transient which is reassuring. On the air sampling and monitoring he is not always tachycardic. The patient's blood work is back. His calcium is low however this is not newly low. I told the patient his calcium level today and states that is around his normal. Back without further intervention in the emergency department his heart rate is back to normal. The patient reports also that he feels back to baseline as well. He is therefore to be discharged shortly. He informs me that he has an appointment to see his primary care doctor this Friday and he is encouraged to follow-up. I told him in the meantime should he get worse or develop any new or concerning symptoms return to the emergency department immediately otherwise follow-up on an outpatient basis. Quality:SDOH Health Related Social Needs: Health related social needs transpo insecurity PFSH All Active Problems (Updated 10/07/23 @ 19:49 by Pauline Alonso DO) Hypocalcemia (Acute) Heart palpitations (Acute) Ankle pain (Acute) Testicle lump (Acute) Right thigh pain (Acute) Epigastric discomfort (Acute) Hypocalcemia (Acute) Hypocalcemia (Acute) Abdominal pain, suprapubic (Acute) Chest pain (Acute) Accidental overdose (Acute) Abdominal pain (Acute) Hamstring tendinitis of left thigh (Acute) Pes anserine bursitis (Acute) Hypernatremia (Acute) Cervical radiculopathy (Acute) URI (upper respiratory infection) (Acute) Left-sided Flower's palsy (Acute) Neck pain on left side (Acute) Constipation (Acute) Grief reaction (Chronic) Opiate dependence, continuous (Acute) Cellulitis (Acute) Cholelithiases (Acute) 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 Possible 2' Methadone, Clnzpm (?). Surg eval (+)/No further action. CKD (chronic kidney disease) stage 2, GFR 60-89 ml/min (Acute) GFR 64-65, with Hx FLORESITA and GFR < 45 Complex medical condition (Chronic) Serious electrolyte imbalances, with gynecomastia, possible MEN Dx, CKD and anemia with baseline anxiety and Hx PTSD. History of electrolyte imbalance (Acute) Neck pain on left side (Acute) with shoulder, upper back pain.. torticollis, radiating into left hip/leg Pulmonary nodule 1 cm or greater in diameter (Chronic) Therapeutic opioid induced constipation (Acute) Sphincter of Oddi dysfunction (Chronic) Abnormal CT scan, kidney (Acute) Intrahepatic bile duct dilation (Acute) Common bile duct dilatation (Chronic) Has been dilated for quite some time, now more-so. Normal LFTs. Known gallstones. Abdominal pain (Acute) Iatrogenic hypocalcemia (Acute) Multiple endocrine neoplasia type I (Chronic) Chronic constipation (Chronic) Primary hyperparathyroidism (Chronic) Depression (Chronic) Hypomagnesemia (Chronic) Hypocalcemia (Chronic) Depression (Chronic) Suicidal ideation (Acute) Elevated parathyroid hormone (Acute) Family history of coronary arteriosclerosis (Chronic) Father of NE at 50, mother had NE at 42 Severe anxiety with panic (Chronic) Cellulitis (Acute) Medical History Hypokalemia Hypocalcemia Anxiety Depression Hyperlipidemia Family history of multiple endocrine neoplasia, type 1 PTSD (post-traumatic stress disorder) Per pt. states no triggers at this time. Surgical History H/O parathyroidectomy Family History Mother Anxiety Asthma Depression Sister Anxiety Depression Father Cancer lung & stomach Depression Diabetes Hypertension MEN 1 (multiple endocrine neoplasia) Social History Smoking/Tobacco Use Status: Never Smoking risk assessment performed?: Yes Alcohol Intake: never Drug use: Rarely Substance use type: does not use and former substance user Adopted: No Caregiver/Support person: No Foster care: No Household members: none Housing: apartment Number of Children: 0 Communication Needs: None Education Level: high school Do you need help understanding health information?: Never 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 and animals: Yes (Ally) Pets and animals: dog(s) Sexually active: No Do you think of yourself as: straight/heterosexual Current gender identity: male What is your relationship status?: How often do you talk on the phone with friends or family?: twice per week How often do you get together with friends or relatives?: never Do you belong to any clubs or organized social groups?: no Panel score (0-1 are the most socially isolated patients): 0 What type of physical activity do you participate in: walking Duration: 15-30 minutes/day Frequency: 5-6 times per week Maryam/Mu-Ism: Muslim Special maryam needs: No Seatbelt use: always Helmet use: Yes Helmet use: always Drive 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
[2023-10-07 19:16] LABS: Anion Gap 8.4 mmol/L (3-11); BUN 15 mg/dL (7-18); CO2 29.6 mmol/L (21.0-32.0); CREATININE 1.4 mg/dL (0.70-1.30); Calcium 7.7 mg/dL (8.5-10.1); Chloride 103 mmol/L (98-107); Estimated GFR 69.77 (mL/min/1.73m2); Glucose 119 mg/dL (74-106); Potassium 3.3 mmol/L (3.5-5.1); Sodium 141 mmol/L (136-145)
== END 2023-10-07 19:59 | disposition home or self-care (01) ==
PROVIDERS: Emergency Provider Emergency Medicine; PCP Family Medicine
DX: E83.51 Hypocalcemia (principal); R00.2 Palpitations; Z86.59 Personal history of other mental and behavioral disorders
CPT/HCPCS: 36415; 80048; 93005; 99283; 93010

== ENCOUNTER 2023-10-10 07:17 | Emergency (ER) | payer OTHER, SELFPAY ==
[2023-10-10 07:21] VITALS: BP 128/89; PULSE 106; RESP 18; TEMP 36.6; O2SAT 99
[2023-10-10 07:42] LABS: Bilirubin Negative (Negative); Blood Negative (Negative); Clarity Sl Cloudy (Clear); Glucose Negative (Negative); Ketones Negative (Negative); Leukocyte Esterase Negative (Negative); Nitrite Negative (Negative); Urobilinogen 0.2 mg/dL (Up to 0.2)
[2023-10-10 07:52] VITALS: BP 136/72; PULSE 104; O2SAT 96
--- NOTE | 2023-10-10 09:55 | W.ED.GENAD ---
Discharge Plan Disposition Patient Disposition: Home Condition: Stable Discharge Details Clinical Impression: Abdominal pain Primary Care Provider: Brendon Vivar ED Provider: Jeovany Elias Home Meds and New Rx's Prescriptions: No Action gabapentin 300 mg capsule 300 mg PO BID Qty: 180 3RF cyclobenzaprine 10 mg tablet 10 mg PO TID PRN (Reason: muscle spasm) Qty: 30 3RF methadone 10 mg/5 mL solution 105 mg PO QAM magnesium gluconate 27 mg magnesium (500 mg) tablet 27 mg PO BID Qty: 60 3RF Patient Comments: Pt states he has been taking 1,000 mg twice a day x 2 weeks. - ML 09/26/23 calcitriol 0.5 mcg capsule 0.5 mcg PO BID Qty: 360 3RF Hold Instructions: Resume on 06/15/22. diclofenac sodium 1 % gel 4 g topical QID Qty: 100 6RF Rx Instructions: apply to single knee, ankle, foot; for foot includes sole/toes/top of foot polyethylene glycol 3350 17 gram/dose powder 17 g PO DAILY omeprazole 40 mg capsule,delayed release(DR/EC) 40 mg PO DAILY Qty: 90 3RF venlafaxine 37.5 mg tablet extended release 24hr 37.5 mg PO DAILY Qty: 60 0RF prednisone 20 mg tablet 20 mg PO DAILY 5 Days Qty: 5 0RF clonazepam 1 mg tablet 1 mg PO BID Qty: 56 0RF calcium carbonate [Tums] 200 mg calcium (500 mg) tablet,chewable 2,000 mg PO BID Hold Instructions: Resume on 05/12/23. Please hold your nightly dose tonight and your a.m. dose tomorrow morning. prochlorperazine maleate 5 mg tablet 5 mg PO TID PRN (Reason: acute nausea) Qty: 30 0RF Discharge Instructions Instructions: Abdominal Pain (ED) Additional Instructions: increase your miralax to 2-3 times per day so that you are having soft, daily bowel movements. see if this helps you pain. return if not feeling better or follow up with your PCP HPI General Date/Time Provider Initiated Documentation: 10/10/23 07:26. Limitations to Documentation: no limitations. Information obtained by: patient. HPI Narrative: 28-year-old gentleman with complex medical history, well-known to the emergency department presents today for evaluation of 2 weeks of right lower quadrant abdominal pain. He reports it is a pulling sensation. It is constant. Not associated with fever or vomiting. Has stayed in the same place. He has known gallbladder disease and states that this feels different. He saw his PCP about it and his PCP informed him that this was too low to be his gallbladder, and he reports that he is concerned that it may be his appendix because his parents had to get their appendix out. He reports having some nausea after eating yesterday but no vomiting. Took a Zofran and felt better. Related Data Home Medications Medication Instructions Recorded Confirmed magnesium gluconate 27 mg 27 mg PO BID #60 tabs 11/08/22 10/10/23 magnesium (500 mg) tablet calcium carbonate (Tums) 2,000 mg PO BID 02/02/23 10/10/23 calcitriol 0.5 mcg capsule 0.5 mcg PO BID #360 caps 04/21/23 10/10/23 diclofenac sodium 1 % topical gel 4 g topical QID #100 grams 04/21/23 10/10/23 methadone 10 mg/5 mL oral solution 105 mg PO QAM 06/12/23 10/10/23 polyethylene glycol 3350 17 17 g PO DAILY 06/12/23 10/10/23 gram/dose oral powder gabapentin 300 mg capsule 300 mg PO BID #180 caps 06/23/23 10/10/23 omeprazole 40 mg capsule,delayed 40 mg PO DAILY #90 caps 07/21/23 10/10/23 release cyclobenzaprine 10 mg tablet 10 mg PO TID PRN muscle spasm #30 08/18/23 10/10/23 tabs prochlorperazine maleate 5 mg 5 mg PO TID PRN acute nausea #30 09/06/23 10/10/23 tablet tabs clonazepam 1 mg tablet 1 mg PO BID #56 tabs 10/10/23 10/10/23 prednisone 20 mg tablet 20 mg PO DAILY 5 days #5 tabs 10/10/23 10/10/23 venlafaxine 37.5 mg 37.5 mg PO DAILY #60 tabs 10/10/23 10/10/23 tablet,extended release 24 hr Previous Rx's Medication Instructions Recorded magnesium gluconate 27 mg 27 mg PO BID #60 tabs 11/08/22 magnesium (500 mg) tablet calcitriol 0.5 mcg capsule 0.5 mcg PO BID #360 caps 04/21/23 diclofenac sodium 1 % topical gel 4 g topical QID #100 grams 04/21/23 gabapentin 300 mg capsule 300 mg PO BID #180 caps 06/23/23 omeprazole 40 mg capsule,delayed 40 mg PO DAILY #90 caps 07/21/23 release cyclobenzaprine 10 mg tablet 10 mg PO TID PRN muscle spasm #30 08/18/23 tabs prochlorperazine maleate 5 mg 5 mg PO TID PRN acute nausea #30 09/06/23 tablet tabs clonazepam 1 mg tablet 1 mg PO BID #56 tabs 10/10/23 prednisone 20 mg tablet 20 mg PO DAILY 5 days #5 tabs 10/10/23 venlafaxine 37.5 mg 37.5 mg PO DAILY #60 tabs 10/10/23 tablet,extended release 24 hr Allergies Allergy/AdvReac Type Severity Reaction Status Date / Time codeine Allergy Intermediate pass out Verified 10/10/23 08:48 Penicillins Allergy Skin Rash Verified 10/10/23 08:48 amoxicillin AdvReac Intermediate Nausea Verified 10/10/23 08:48 dextromethorphan AdvReac Intermediate Other (See Verified 10/10/23 08:48 [From NyQuil] Comment) doxylamine [From NyQuil] AdvReac Intermediate Other (See Verified 10/10/23 08:48 Comment) pseudoephedrine [From NyQuil] AdvReac Intermediate Other (See Verified 10/10/23 08:48 Comment) General Stated Complaint: Abd Prob ADRIANA: 3 Exam Narrative Exam Narrative: Review of Systems: All systems reviewed & are unremarkable except as noted in HPI and below Well-developed, no acute distress NCAT Moist mucous membranes PERRL, normal conjunctiva RRR slight tachycardia, no murmur Unlabored respiratory effort, clear bilaterally Nondistended abdomen , no right upper quadrant tenderness, no RLQ tenderness, localizes the pain to the right periumbilical area Extremities w/o deformity, no cyanosis, no edema No rashes or lesions. no focal neurologic deficits Appropriate mood and affect Course Vital Signs Vital signs: Vital Signs Temperature 36.6 C 10/10/23 07:21 Pulse 106 H 10/10/23 07:21 Respiratory Rate 18 10/10/23 07:21 Blood Pressure 128/89 10/10/23 07:21 Pulse Oximetry 99 10/10/23 07:21 Temperature 36.6 C 10/10/23 07:21 Temperature Source Skin 10/10/23 07:21 Pulse 104 H 10/10/23 07:52 Respiratory Rate 18 10/10/23 07:21 Respiratory Effort Normal, Non-Labored 10/10/23 07:52 Blood Pressure 136/72 10/10/23 07:52 Blood Pressure Position Sitting 10/10/23 07:21 Pulse Oximetry 96 10/10/23 07:52 Oxygen Delivery Method Room Air 10/10/23 07:21 Oxygen Flow Rate 0 10/10/23 07:21 Pain Level 4 10/10/23 07:52 Lab/Test Results Lab/Test Results: Laboratory Tests Range/Units 10/10/23 07:35 Urine Color (Yellow) Yellow Urine Clarity (Clear) Sl Cloudy Urine pH (5-8) 8.0 Ur Specific [place] (1.005-1.025) 1.020 Urine Protein (Neg-Trace) mg/dL Negative Urine Ketones (Negative) mg/dL Negative Urine Blood (Negative) Negative Urine Nitrite (Negative) Negative Urine Bilirubin (Negative) Negative Urine Urobilinogen (Up to 0.2) mg/dL 0.2 Ur Leukocyte Esterase (Negative) Negative Urine Glucose (Negative) mg/dL Negative Medical Decision Making Emergent evaluation of abdominal pain. Patient has chronic ongoing abdominal pain. He is not having his symptoms associated with Judi cystitis at this time. He localizes his abdominal pain to the right periumbilical area, not really the right lower quadrant and based on the physical examination today, I doubt that he has acute appendicitis. He has no symptoms concerning for renal stone. His urinalysis is not infected. He has no real abdominal tenderness, guarding or rebound he also has no associated symptoms like fever or vomiting or anorexia that may be more suspicious for an acute appendicitis. The patient had lab work in the emergency department 2 days ago. At that time he had fairly unremarkable labs, including a normal white blood cell count. I would think if the patient had acute appendicitis or appendicitis brewing for the last 2 weeks as he states he has had this pain, then there would likely be some change in his CBC with shift. At this time, patient feels reassured and has a primary care appointment later today. He does take methadone for chronic pain and I suspect that some of this may be constipation related. He reports infrequent bowel movements that are hard. He does take stool softener and occasionally MiraLAX. advised to increase MiraLAX dosing to 2-3 times daily so that he is having soft daily bowel movements and to reassess his pain to see if this improves his symptoms. Medical Records Medical records reviewed: Yes I reviewed the patient's medical records. Lab Data Lab results reviewed: Yes I reviewed the patient's lab results. Quality:[facility] Health Related Social Needs: Health related social needs transpo insecurity FOR[facility]LY [facility] All Active Problems Abdominal pain (Acute) Bronchitis (Acute) 10/08/2023 - Dx @ [facility] E/R Chani MORALES Bronchitis (Acute) Hypocalcemia (Acute) Heart palpitations (Acute) Ankle pain (Acute) Testicle lump (Acute) Right thigh pain (Acute) Epigastric discomfort (Acute) Hypocalcemia (Acute) Hypocalcemia (Acute) Abdominal pain, suprapubic (Acute) Chest pain (Acute) Accidental overdose (Acute) Hamstring tendinitis of left thigh (Acute) Pes anserine bursitis (Acute) Hypernatremia (Acute) Cervical radiculopathy (Acute) URI (upper respiratory infection) (Acute) Left-sided Flower's palsy (Acute) Neck pain on left side (Acute) Constipation (Acute) Grief reaction (Chronic) Opiate dependence, continuous (Acute) Cellulitis (Acute) Cholelithiases (Acute) 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 ED Left arm numbness (Acute) Gynecomastia, male (Acute) b/l, per CT (Jul 2022).. Possible 2' Methadone, Clnzpm (?). Surg eval (+)/No further action. CKD (chronic kidney disease) stage 2, GFR 60-89 ml/min (Acute) GFR 64-65, with Hx FLORESITA and GFR < 45 Complex medical condition (Chronic) Serious electrolyte imbalances, with gynecomastia, possible MEN Dx, CKD and anemia with baseline anxiety and Hx PTSD. History of electrolyte imbalance (Acute) Neck pain on left side (Acute) with shoulder, upper back pain.. torticollis, radiating into left hip/leg Pulmonary nodule 1 cm or greater in diameter (Chronic) Therapeutic opioid induced constipation (Acute) Sphincter of Oddi dysfunction (Chronic) Abnormal CT scan, kidney (Acute) Intrahepatic bile duct dilation (Acute) Common bile duct dilatation (Chronic) Has been dilated for quite some time, now more-so. Normal LFTs. Known gallstones. Abdominal pain (Acute) Iatrogenic hypocalcemia (Acute) Multiple endocrine neoplasia type I (Chronic) Chronic constipation (Chronic) Primary hyperparathyroidism (Chronic) Depression (Chronic) Hypomagnesemia (Chronic) Hypocalcemia (Chronic) Depression (Chronic) Suicidal ideation (Acute) Elevated parathyroid hormone (Acute) Family history of coronary arteriosclerosis (Chronic) Father of DC at 50, mother had DC at 42 Severe anxiety with panic (Chronic) Cellulitis (Acute) Medical History Hypokalemia Hypocalcemia Anxiety Depression Hyperlipidemia Family history of multiple endocrine neoplasia, type 1 PTSD (post-traumatic stress disorder) Per pt. states no triggers at this time. Surgical History H/O parathyroidectomy Family History Mother Anxiety Asthma Depression Sister Anxiety Depression Father Cancer lung & stomach Depression Diabetes Hypertension MEN 1 (multiple endocrine neoplasia) Social History Smoking/Tobacco Use Status: Never Smoking risk assessment performed?: Yes Alcohol Intake: never Drug use: Rarely Substance use type: does not use and former substance user Adopted: No Caregiver/Support person: No Foster care: No Household members: none Housing: apartment Number of Children: 0 Communication Needs: None Education Level: high school Do you need help understanding health information?: Never 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 and animals: Yes (Ally) Pets and animals: dog(s) Sexually active: No Do you think of yourself as: straight/heterosexual Current gender identity: male What is your relationship status?: How often do you talk on the phone with friends or family?: twice per week How often do you get together with friends or relatives?: never Do you belong to any clubs or organized social groups?: no Panel score (0-1 are the most socially isolated patients): 0 What type of physical activity do you participate in: walking Duration: 15-30 minutes/day Frequency: 5-6 times per week Maryam/Congregational: [employer] Special maryam needs: No Seatbelt use: always Helmet use: Yes Helmet use: always Drive 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 motor pool 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
== END 2023-10-10 07:55 | disposition home or self-care (01) ==
LOC: ER 07:40
PROVIDERS: Emergency Provider Emergency Medicine; PCP Family Medicine
DX: R10.33 Periumbilical pain (principal); R11.0 Nausea
CPT/HCPCS: 99283; 81003

== ENCOUNTER 2023-10-11 15:33 | Emergency (ER) | payer OTHER, SELFPAY ==
[2023-10-11 15:36] VITALS: BP 137/82; PULSE 100; RESP 20; TEMP 36.5; O2SAT 100
[2023-10-11 15:37] VITALS: BP 137/82; PULSE 100; RESP 20; TEMP 36.5; O2SAT 100
--- NOTE | 2023-10-11 15:48 | ED.GENADUL_ITS ---
Discharge Plan Disposition Patient Disposition: Home Condition: Stable Discharge Details Clinical Impression: Left lower quadrant abdominal pain Primary Care Provider: Brendon Vivar ED Provider: Richy Oakes Home Meds and New Rx's Prescriptions: Continued gabapentin 300 mg capsule 300 mg PO BID Qty: 180 3RF cyclobenzaprine 10 mg tablet 10 mg PO TID PRN (Reason: muscle spasm) Qty: 30 3RF methadone 10 mg/5 mL solution 105 mg PO QAM magnesium gluconate 27 mg magnesium (500 mg) tablet 27 mg PO BID Qty: 60 3RF Patient Comments: Pt states he has been taking 1,000 mg twice a day x 2 weeks. - ML 09/26/23 calcitriol 0.5 mcg capsule 0.5 mcg PO BID Qty: 360 3RF Hold Instructions: Resume on 06/15/22. diclofenac sodium 1 % gel 4 g topical QID Qty: 100 6RF Rx Instructions: apply to single knee, ankle, foot; for foot includes sole/toes/top of foot polyethylene glycol 3350 17 gram/dose powder 17 g PO DAILY omeprazole 40 mg capsule,delayed release(DR/EC) 40 mg PO DAILY Qty: 90 3RF venlafaxine 37.5 mg tablet extended release 24hr 37.5 mg PO DAILY Qty: 60 0RF prednisone 20 mg tablet 20 mg PO DAILY 5 Days Qty: 5 0RF clonazepam 1 mg tablet 1 mg PO BID Qty: 56 0RF calcium carbonate [Tums] 200 mg calcium (500 mg) tablet,chewable 2,000 mg PO BID Hold Instructions: Resume on 05/12/23. Please hold your nightly dose tonight and your a.m. dose tomorrow morning. prochlorperazine maleate 5 mg tablet 5 mg PO TID PRN (Reason: acute nausea) Qty: 30 0RF Discharge Instructions Instructions: Abdominal Pain (ED) Additional Instructions: You were seen in the emergency department for your left lower abdominal pain, your denying any black or bloody stools, denying diarrhea, you are using MiraLAX, you have some complex GI issues and history and have had many CAT scans. We did discuss laboratory workup and then engaged in shared decision making in regards to imaging decision. I was happy to CAT scan you today if you wished but I think that your reassuring laboratory workup shows no signs of sepsis, no signs of severe infection so I do not think there is any acute emergent abdominal pathology based on your benign physical exam as well. This could be an abdominal wall muscle strain but if your condition worsens please return for further imaging. You may want to follow-up with the general surgery practice who is aware of your chronic issues and pursue a possible colonoscopy at some point for your chronic GI issues. Referrals: Brendon Vivar DO [Primary Care Provider] - Discharge Data Discharge Date/Time-TO BE ENTERED AT DEPARTURE: 10/11/23 17:47 HPI General Date/Time Provider Initiated Documentation: 10/11/23 15:40 . HPI Narrative: 28 year-old male presents to ED today by POV/ambulating with a chief complaint of LLQ abdominal pain, acute on chronic, mild nausea with onset over the past few days, worse with eating. Quality described as dull aching pain, no radiation to fever, black/bloody stools, vomiting, RUQ abdominal pain, constipation, endorses normal bowel movements with MiraLax, denies chest pain/shortness of breath. Severity is described as 4/10. Palliating factors include MiraLax. Provoking factors include eating, pushing out his stomach muscles, certain movements. Patient not anticoagulated. Related Data Home Medications Medication Instructions Recorded Confirmed magnesium gluconate 27 mg 27 mg PO BID #60 tabs 11/08/22 10/10/23 magnesium (500 mg) tablet calcium carbonate (Tums) 2,000 mg PO BID 02/02/23 10/10/23 calcitriol 0.5 mcg capsule 0.5 mcg PO BID #360 caps 04/21/23 10/10/23 diclofenac sodium 1 % topical gel 4 g topical QID #100 grams 04/21/23 10/10/23 methadone 10 mg/5 mL oral solution 105 mg PO QAM 06/12/23 10/10/23 polyethylene glycol 3350 17 17 g PO DAILY 06/12/23 10/10/23 gram/dose oral powder gabapentin 300 mg capsule 300 mg PO BID #180 caps 06/23/23 10/10/23 omeprazole 40 mg capsule,delayed 40 mg PO DAILY #90 caps 07/21/23 10/10/23 release cyclobenzaprine 10 mg tablet 10 mg PO TID PRN muscle spasm #30 08/18/23 10/10/23 tabs prochlorperazine maleate 5 mg 5 mg PO TID PRN acute nausea #30 09/06/23 10/10/23 tablet tabs clonazepam 1 mg tablet 1 mg PO BID #56 tabs 10/10/23 10/10/23 prednisone 20 mg tablet 20 mg PO DAILY 5 days #5 tabs 10/10/23 10/10/23 venlafaxine 37.5 mg 37.5 mg PO DAILY #60 tabs 10/10/23 10/10/23 tablet,extended release 24 hr Previous Rx's Medication Instructions Recorded magnesium gluconate 27 mg 27 mg PO BID #60 tabs 11/08/22 magnesium (500 mg) tablet calcitriol 0.5 mcg capsule 0.5 mcg PO BID #360 caps 04/21/23 diclofenac sodium 1 % topical gel 4 g topical QID #100 grams 04/21/23 gabapentin 300 mg capsule 300 mg PO BID #180 caps 06/23/23 omeprazole 40 mg capsule,delayed 40 mg PO DAILY #90 caps 07/21/23 release cyclobenzaprine 10 mg tablet 10 mg PO TID PRN muscle spasm #30 08/18/23 tabs prochlorperazine maleate 5 mg 5 mg PO TID PRN acute nausea #30 09/06/23 tablet tabs clonazepam 1 mg tablet 1 mg PO BID #56 tabs 10/10/23 prednisone 20 mg tablet 20 mg PO DAILY 5 days #5 tabs 10/10/23 venlafaxine 37.5 mg 37.5 mg PO DAILY #60 tabs 10/10/23 tablet,extended release 24 hr Allergies Allergy/AdvReac Type Severity Reaction Status Date / Time codeine Allergy Intermediate pass out Verified 10/10/23 08:48 Penicillins Allergy Skin Rash Verified 10/10/23 08:48 amoxicillin AdvReac Intermediate Nausea Verified 10/10/23 08:48 dextromethorphan AdvReac Intermediate Other (See Verified 10/10/23 08:48 [From NyQuil] Comment) doxylamine [From NyQuil] AdvReac Intermediate Other (See Verified 10/10/23 08:48 Comment) pseudoephedrine [From NyQuil] AdvReac Intermediate Other (See Verified 10/10/23 08:48 Comment) General Stated Complaint: Abd Prob ADRIANA: 3 Review of Systems All systems reviewed & are unremarkable except as noted in HPI and below Exam Narrative Exam Narrative: GENERAL APPEARANCE: Well-nourished, non-toxic, awake and alert, atraumatic, no acute distress. SKIN: Warm, pink, dry, intact, without rashes/lesions/ulcerations. HEAD: Normocephalic, atraumatic, normal hair distribution for gender/age. EYES: Pupils PERRLA, EOMs intact without nystagmus, normal conjunctiva, no exudates on lids/lashes. ENT: Nares patent, no circumoral cyanosis, no facial swelling NECK: Supple, trachea midline, painless cervical ROM. LUNGS/CHEST: Lungs CTA bilaterally- no rhonchi/rales/wheezes diffusely, non- labored respirations, normal A/P diameter, symmetrical expansion, no chest wall deformity HEART (CV/PV): Regular rate and rhythm without murmur, no peripheral edema, no JVD. ABDOMEN: Normoactive bowel sounds, soft, non-distended, no guarding, mild LLQ tenderness without Rovsing's, negative Cedillo's sign, no McBurney's point tenderness. MSK: Normal ROM, no swelling/deformity to bilateral UEs or LEs, moving all extremities without weakness, no cyanosis, spine midline without tenderness, normal curvature. NEURO: Mental Status AAOx4 - alert to person, place, time, events No facial droop, no forehead involvement. Motor: No focal weakness - strength 5/5 in bilateral UEs and LEs, proximal and distal, symmetric. Sensory: sensation intact to light touch globally. Gait normal: patient ambulated without ataxia into ED room. PSYCH: euthymic, cooperative, pleasant, appropriate speech Course Vital Signs Vital signs: Vital Signs Temperature 36.5 C 10/11/23 15:36 Pulse 100 H 10/11/23 15:36 Respiratory Rate 20 10/11/23 15:36 Blood Pressure 137/82 10/11/23 15:36 Pulse Oximetry 100 10/11/23 15:36 Temperature 36.5 C 10/11/23 15:37 Temperature Source Tympanic 10/11/23 15:37 Pulse 100 H 10/11/23 15:37 Respiratory Rate 20 10/11/23 15:37 Blood Pressure 137/82 10/11/23 15:37 Blood Pressure Position Sitting 10/11/23 15:37 Pulse Oximetry 100 10/11/23 15:37 Oxygen Delivery Method Room Air 10/11/23 15:37 Oxygen Flow Rate 0 10/11/23 15:37 Pain Level 4 10/11/23 15:37 Medical Decision Making This dictation utilizes [id number]-[id number] dictation software and may contain unedited grammatical errors. 28 y/o M presents to ED today with a chief complaint of LLQ abdominal pain, chronic constipation, mild nausea without vomiting. Patient is well-known to the ED, has chronic biliary colic, denies fever, shortness of breath, cough, black/bloody stools, has been taking MiraLax for chronic constipation. Patient has history of many CT scans. Patients' medical history: History of parathyroidectomy, palpitations, history of mild tachycardia at baseline, history of constipation, cholelithiasis, CKD stage II, electrolyte imbalance, sphincter of Oddi dysfunction, denies history of known diverticuli. Family and social history: chronic opiate MAT therapy. Pertinent exam findings / vital signs include LLQ abdominal tenderness without peritoneal signs, vitals baseline, benign cardiopulmonary exam, neuro intact, nontoxic vitals. Differential / pathologies of concern include gastroenteritis, abdominal wall muscle strain, constipation, biliary colic, diverticulitis, colitis, not sepsis. Diagnostic studies of: -CBC, CMP, Lipase, CRP/ESR, Lactate, UA imaging decision after labs with shared decision making. -CBC benign -Lactate neg -Lipase wnl -CRP/ESR elevated, non-specific -UA benign -discussed imaging with benign labs, patient prefers to watchfully wait at home and return for worsening if imaging for radiation sparing Interventions of: -none. ED Course/Assessment/Plan: 28-year-old male with chronic constipation issues presents with left lower quadrant abdominal pain with no peritoneal signs, his laboratory workup is benign and rates his pain as mild 4/10. I discussed possibility for imaging and diverticulitis but he has no history of diverticulosis and is quite young. His labs are reassuring for no acute emergent abdominal pathology along with his exam. I counseled him to follow-up with general surgery for his chronic GI issues for possible colonoscopy at some point but to continue MiraLAX at home. Counseled on possible abdominal wall muscle strain. Patient will return for any acute worsening especially with fever, black or bloody stools, intractable nausea or vomiting or worsening pain. Findings not consistent with sepsis, biliary colic, perforated viscus, acute emergent abdominal pathology. Disposition of Left Lower Quadrant Abdominal Pain. Patient verbalized understanding of the plan and return to ED criteria and engaged in shared decision making. Medical Records Medical records reviewed: Yes I reviewed the patient's medical records. Lab Data Lab results reviewed: Yes I reviewed the patient's lab results. Labs: Laboratory Tests Range/Units 10/11/23 10/11/23 16:00 16:20 WBC (4.4-10.8) 10^3/uL 7.39 RBC (4.36-5.78) 10^6/uL 3.89 L Hgb (13.5-17.5) g/dL 11.4 L Hct (40.0-50.0) % 34.4 L MCV (80-95) fL 88 MCH (27.0-33.0) pg 29.3 MCHC (32.0-36.0) % 33.1 RDW (11.8-14.1) % 12.4 Plt Count (130-400) 10^3/uL 264 MPV (8.0-11.0) fL 10.7 Immature Gran % 0.4 Neutrophils % 64.9 Lymphocytes % 21.9 Monocytes % 10.8 Eosinophils % 1.6 Basophils % 0.4 Nucleated RBC % (0.0-0.3) % 0.0 Absolute Neutrophils (1.2-6.7) 10^3/uL 4.79 Absolute Lymphocytes (1.2-3.4) 10^3/uL 1.62 Absolute Monocytes (0.1-0.8) 10^3/uL 0.80 Absolute Eosinophils (0.0-0.7) 10^3/uL 0.12 Absolute Basophils (0.0-0.2) 10^3/uL 0.03 ESR (0-15) mm/hr 42 H VBG Lactate (0.6-1.4) mmol/L 1.0 Sodium (136-145) mmol/L 141 Potassium (3.5-5.1) mmol/L 3.9 Chloride (98-107) mmol/L 102 Carbon Dioxide (21.0-32.0) mmol/L 33.2 H Anion Gap (3-11) mmol/L 5.8 BUN (7-18) mg/dL 17 Creatinine (0.70-1.30) mg/dL 1.3 Est GFR (CKD-EPI 2020) (mL/min/1.73m2) 75.79 Glucose (74-106) mg/dL 102 Calcium (8.5-10.1) mg/dL 8.0 L Magnesium (1.8-2.4) mg/dL 1.7 L Total Bilirubin (0.2-1.0) mg/dL 0.2 Conjugated Bilirubin (0.0-0.2) mg/dL 0.1 AST (15-37) U/L 31 ALT (16-63) U/L 48 Alkaline Phosphatase (46-116) U/L 127 H C-Reactive Protein (<or=0.5) mg/dL 0.54 H Total Protein (6.4-8.2) g/dL 7.5 Albumin (3.4-5.0) g/dL 3.2 L Lipase (16-77) U/L 30 Procalcitonin ng/mL < 0.1 Urine Color (Yellow) Yellow Urine Clarity (Clear) Clear Urine pH (5-8) 7.5 Ur Specific [place] (1.005-1.025) 1.015 Urine Protein (Neg-Trace) mg/dL Negative Urine Ketones (Negative) mg/dL Negative Urine Blood (Negative) Negative Urine Nitrite (Negative) Negative Urine Bilirubin (Negative) Negative Urine Urobilinogen (Up to 0.2) mg/dL 0.2 Ur Leukocyte Esterase (Negative) Negative Urine Glucose (Negative) mg/dL Negative Quality:SDOH Health Related Social Needs: Health related social needs transpo insecurity [facility] All Active Problems (Updated 10/11/23 @ 17:16 by ANDREW Coleman) Left lower quadrant abdominal pain (Acute) Abdominal pain (Acute) Bronchitis (Acute) 10/08/2023 - Dx @ [facility] E/R Chani MORALES Bronchitis (Acute) Hypocalcemia (Acute) Heart palpitations (Acute) Ankle pain (Acute) Testicle lump (Acute) Right thigh pain (Acute) Epigastric discomfort (Acute) Hypocalcemia (Acute) Hypocalcemia (Acute) Abdominal pain, suprapubic (Acute) Chest pain (Acute) Accidental overdose (Acute) Hamstring tendinitis of left thigh (Acute) Pes anserine bursitis (Acute) Hypernatremia (Acute) Cervical radiculopathy (Acute) URI (upper respiratory infection) (Acute) Left-sided Flower's palsy (Acute) Neck pain on left side (Acute) Constipation (Acute) Grief reaction (Chronic) Opiate dependence, continuous (Acute) Cellulitis (Acute) Cholelithiases (Acute) 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 Possible 2' Methadone, Clnzpm (?). Surg eval (+)/No further action. CKD (chronic kidney disease) stage 2, GFR 60-89 ml/min (Acute) GFR 64-65, with Hx FLORESITA and GFR < 45 Complex medical condition (Chronic) Serious electrolyte imbalances, with gynecomastia, possible MEN Dx, CKD and anemia with baseline anxiety and Hx PTSD. History of electrolyte imbalance (Acute) Neck pain on left side (Acute) with shoulder, upper back pain.. torticollis, radiating into left hip/leg Pulmonary nodule 1 cm or greater in diameter (Chronic) Therapeutic opioid induced constipation (Acute) Sphincter of Oddi dysfunction (Chronic) Abnormal CT scan, kidney (Acute) Intrahepatic bile duct dilation (Acute) Common bile duct dilatation (Chronic) Has been dilated for quite some time, now more-so. Normal LFTs. Known gallstones. Abdominal pain (Acute) Iatrogenic hypocalcemia (Acute) Multiple endocrine neoplasia type I (Chronic) Chronic constipation (Chronic) Primary hyperparathyroidism (Chronic) Depression (Chronic) Hypomagnesemia (Chronic) Hypocalcemia (Chronic) Depression (Chronic) Suicidal ideation (Acute) Elevated parathyroid hormone (Acute) Family history of coronary arteriosclerosis (Chronic) Father of [place] at 50, mother had [place] at 42 Severe anxiety with panic (Chronic) Cellulitis (Acute) Medical History Hypokalemia Hypocalcemia Anxiety Depression Hyperlipidemia Family history of multiple endocrine neoplasia, type 1 PTSD (post-traumatic stress disorder) Per pt. states no triggers at this time. Surgical History H/O parathyroidectomy Family History Mother Anxiety Asthma Depression Sister Anxiety Depression Father Cancer lung & stomach Depression Diabetes Hypertension MEN 1 (multiple endocrine neoplasia) Social History Smoking/Tobacco Use Status: Never Smoking risk assessment performed?: Yes Alcohol Intake: never Drug use: Rarely Substance use type: does not use and former substance user Adopted: No Caregiver/Support person: No Foster care: No Household members: none Housing: apartment Number of Children: 0 Communication Needs: None Education Level: high school Do you need help understanding health information?: Never 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 and animals: Yes (Ally) Pets and animals: dog(s) Sexually active: No Do you think of yourself as: straight/heterosexual Current gender identity: male What is your relationship status?: How often do you talk on the phone with friends or family?: twice per week How often do you get together with friends or relatives?: never Do you belong to any clubs or organized social groups?: no Panel score (0-1 are the most socially isolated patients): 0 What type of physical activity do you participate in: walking Duration: 15-30 minutes/day Frequency: 5-6 times per week Maryam/Restorationism: [employer] Special maryam needs: No Seatbelt use: always Helmet use: Yes Helmet use: always Drive 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
[2023-10-11 16:08] LABS: Bilirubin Negative (Negative); Blood Negative (Negative); Clarity Clear (Clear); Glucose Negative (Negative); Ketones Negative (Negative); Leukocyte Esterase Negative (Negative); Nitrite Negative (Negative); Specific Gravity 1.015 (1.005-1.025); Urobilinogen 0.2 mg/dL (Up to 0.2); pH 7.5 (5-8)
[2023-10-11 16:29] LABS: Abs Immature Grans 0.03 10^3/uL (0.0-0.06); Absolute Basophil Count 0.03 10^3/uL (0.0-0.2); Absolute Eosinophil Count 0.12 10^3/uL (0.0-0.7); Absolute Lymphocyte Count 1.62 10^3/uL (1.2-3.4); Absolute Neutrophil Count 4.79 10^3/uL (1.2-6.7); Basophils % 0.4; Eosinophils % 1.6; HCT 34.4 % (40.0-50.0); HGB 11.4 g/dL (13.5-17.5); Immature Grans % 0.4; Lymphocytes % 21.9; MCH 29.3 pg (27.0-33.0); MCHC 33.1 % (32.0-36.0); MCV 88 fL (80-95); MPV 10.7 fL (8.0-11.0); Monocytes % 10.8; Neutrophils % 64.9; Platelet Count 264 10^3/uL (130-400); RBC 3.89 10^6/uL (4.36-5.78); RDW 12.4 % (11.8-14.1); RDW-SD 39.8 fL; WBC 7.39 10^3/uL (4.4-10.8)
[2023-10-11 16:31] LABS: ESR 42 mm/hr (0-15)
[2023-10-11 16:51] LABS: ALT 48 U/L (16-63); AST 31 U/L (15-37); Albumin 3.2 g/dL (3.4-5.0); Alkaline Phosphatase 127 U/L (46-116); Anion Gap 5.8 mmol/L (3-11); BUN 17 mg/dL (7-18); Bilirubin, Direct 0.1 mg/dL (0.0-0.2); Bilirubin, Total 0.2 mg/dL (0.2-1.0); C-Reactive Protein 0.54 mg/dL (<or=0.5); CO2 33.2 mmol/L (21.0-32.0); CREATININE 1.3 mg/dL (0.70-1.30); Chloride 102 mmol/L (98-107); Estimated GFR 75.79 (mL/min/1.73m2); Glucose 102 mg/dL (74-106); Lipase 30 U/L (16-77); Magnesium 1.7 mg/dL (1.8-2.4); Potassium 3.9 mmol/L (3.5-5.1); Sodium 141 mmol/L (136-145); Total Protein 7.5 g/dL (6.4-8.2)
[2023-10-11 17:08] LABS: Procalcitonin < 0.1 ng/mL
[2023-10-11 17:45] VITALS: BP 137/82; PULSE 100; RESP 20; TEMP 36.5; O2SAT 100
== END 2023-10-11 17:47 | disposition home or self-care (01) ==
PROVIDERS: Emergency Provider Physician Assistant; PCP Family Medicine
DX: R10.32 Left lower quadrant pain (principal); R11.0 Nausea; E78.5 Hyperlipidemia, unspecified
CPT/HCPCS: 36415; 80048; 80076; 83690; 84145; 85652; 99283; 81003; 83605; 83735; 85025; 86140

== ENCOUNTER 2023-10-14 08:44 | Emergency (ER) | payer OTHER, SELFPAY ==
[2023-10-14 08:51] VITALS: BP 132/78; PULSE 105; RESP 20; TEMP 36.3; O2SAT 99
--- NOTE | 2023-10-14 08:51 | ED.GENADUL_ITS ---
Discharge Plan Discharge Details Chief Complaint: Abd Prob Primary Care Provider: Brendon Vivar ED Provider: Saranya Estrada Home Meds and New Rx's Prescriptions: No Action gabapentin 300 mg capsule 300 mg PO BID Qty: 180 3RF cyclobenzaprine 10 mg tablet 10 mg PO TID PRN (Reason: muscle spasm) Qty: 30 3RF methadone 10 mg/5 mL solution 105 mg PO QAM magnesium gluconate 27 mg magnesium (500 mg) tablet 27 mg PO BID Qty: 60 3RF Patient Comments: Pt states he has been taking 1,000 mg twice a day x 2 weeks. - ML 09/26/23 calcitriol 0.5 mcg capsule 0.5 mcg PO BID Qty: 360 3RF Hold Instructions: Resume on 06/15/22. diclofenac sodium 1 % gel 4 g topical QID Qty: 100 6RF Rx Instructions: apply to single knee, ankle, foot; for foot includes sole/toes/top of foot polyethylene glycol 3350 17 gram/dose powder 17 g PO DAILY omeprazole 40 mg capsule,delayed release(DR/EC) 40 mg PO DAILY Qty: 90 3RF venlafaxine 37.5 mg tablet extended release 24hr 37.5 mg PO DAILY Qty: 60 0RF clonazepam 1 mg tablet 1 mg PO BID Qty: 56 0RF calcium carbonate [Tums] 200 mg calcium (500 mg) tablet,chewable 2,000 mg PO BID Hold Instructions: Resume on 05/12/23. Please hold your nightly dose tonight and your a.m. dose tomorrow morning. prochlorperazine maleate 5 mg tablet 5 mg PO TID PRN (Reason: acute nausea) Qty: 30 0RF HPI General Date/Time Provider Initiated Documentation: 10/14/23 08:47 . HPI Narrative: Pedro Pablo is a 28-year-old male with a medically complex history including MEN type I, hyperparathyroidism, depression, and anxiety who presents to the emergency dept today for evaluation of lower abdominal pain. He reports pain started in the left lower quadrant 10 days ago, has since moved to the suprapubic area, radiating across the lower abdomen. He reports it as a consistent mild discomfort, which worsens to a stronger tearing sensation when he sits up or when his bladder is full. Pain is improved when he urinates/empties his bladder. He denies associated fever/chills, chest pain, shortness of breath, cough, nausea/vomiting, dysuria/hematuria/difficulty voiding, testicular pain, blood in stool or black/tarry stools. He was taking MiraLAX until a few days ago, says he has been having small amounts of watery brownish diarrhea up to 6 times a day, he attributes this to the MiraLAX use. Has been able to take p.o. without difficulty, though feels he may have a slightly decreased appetite from usual. Pain is not changed with food consumption. He does have known gallstones, says this is unique from the gallstone pain. He has been diagnosed with parathyroid neoplasm, says he has not had any colonoscopies done. He says that he has taken Bentyl in the past, says that he has not taken any recently but does feel like it might be effective. No recent ibuprofen use. Related Data Home Medications Medication Instructions Recorded Confirmed magnesium gluconate 27 mg 27 mg PO BID #60 tabs 11/08/22 10/14/23 magnesium (500 mg) tablet calcium carbonate (Tums) 2,000 mg PO BID 02/02/23 10/14/23 calcitriol 0.5 mcg capsule 0.5 mcg PO BID #360 caps 04/21/23 10/14/23 diclofenac sodium 1 % topical gel 4 g topical QID #100 grams 04/21/23 10/14/23 methadone 10 mg/5 mL oral solution 105 mg PO QAM 06/12/23 10/14/23 polyethylene glycol 3350 17 17 g PO DAILY 06/12/23 10/14/23 gram/dose oral powder gabapentin 300 mg capsule 300 mg PO BID #180 caps 06/23/23 10/14/23 omeprazole 40 mg capsule,delayed 40 mg PO DAILY #90 caps 07/21/23 10/14/23 release cyclobenzaprine 10 mg tablet 10 mg PO TID PRN muscle spasm #30 08/18/23 10/14/23 tabs prochlorperazine maleate 5 mg 5 mg PO TID PRN acute nausea #30 09/06/23 10/14/23 tablet tabs clonazepam 1 mg tablet 1 mg PO BID #56 tabs 10/10/23 10/14/23 venlafaxine 37.5 mg 37.5 mg PO DAILY #60 tabs 10/10/23 10/14/23 tablet,extended release 24 hr Previous Rx's Medication Instructions Recorded magnesium gluconate 27 mg 27 mg PO BID #60 tabs 11/08/22 magnesium (500 mg) tablet calcitriol 0.5 mcg capsule 0.5 mcg PO BID #360 caps 04/21/23 diclofenac sodium 1 % topical gel 4 g topical QID #100 grams 04/21/23 gabapentin 300 mg capsule 300 mg PO BID #180 caps 06/23/23 omeprazole 40 mg capsule,delayed 40 mg PO DAILY #90 caps 07/21/23 release cyclobenzaprine 10 mg tablet 10 mg PO TID PRN muscle spasm #30 08/18/23 tabs prochlorperazine maleate 5 mg 5 mg PO TID PRN acute nausea #30 09/06/23 tablet tabs clonazepam 1 mg tablet 1 mg PO BID #56 tabs 10/10/23 venlafaxine 37.5 mg 37.5 mg PO DAILY #60 tabs 10/10/23 tablet,extended release 24 hr Allergies Allergy/AdvReac Type Severity Reaction Status Date / Time codeine Allergy Intermediate pass out Verified 10/14/23 08:53 Penicillins Allergy Skin Rash Verified 10/14/23 08:53 amoxicillin AdvReac Intermediate Nausea Verified 10/14/23 08:53 dextromethorphan AdvReac Intermediate Other (See Verified 10/14/23 08:53 [From NyQuil] Comment) doxylamine [From NyQuil] AdvReac Intermediate Other (See Verified 10/14/23 08:53 Comment) pseudoephedrine [From NyQuil] AdvReac Intermediate Other (See Verified 10/14/23 08:53 Comment) General ADRIANA: 3 Review of Systems Narrative: see HPI Exam Const General: cooperative, healthy appearing, comfortable, no acute distress and anxious Nutritional Appearance: overweight Resp Effort & Inspection: normal respiratory effort and able to speak in complete sentences Auscultation: clear to auscultation bilaterally Cardio Rate: tachycardic Rhythm: regular rhythm GI Inspection: normal to inspection, no abdominal wall ecchymosis, non-distended, no visible herniation, no visible pulsation and No caput medusae present Palpation: soft, no hernias, no masses, no pulsatile masses, not rigid and tender in the LLQ, in the RLQ and suprapubicly; with no rebound tenderness Auscultation: normal bowel sounds Skin Rashes: no rashes Medical Decision Making Pedro Pablo is a 28-year-old male with a medically complex history including MEN type I, hyperparathyroidism, depression, and anxiety who presents to the emergency dept today for evaluation of lower abdominal pain. He reports pain started in the left lower quadrant 10 days ago, has since moved to the suprapubic area, radiating across the lower abdomen. He reports it as a consistent mild discomfort, which worsens to a stronger tearing sensation when he sits up or when his bladder is full. Pain is improved when he urinates/empties his bladder. He denies associated fever/chills, chest pain, shortness of breath, cough, nausea/vomiting, dysuria/hematuria/difficulty voiding, testicular pain, blood in stool or black/tarry stools. He was taking MiraLAX until a few days ago, says he has been having small amounts of watery brownish diarrhea up to 6 times a day, he attributes this to the MiraLAX use. Has been able to take p.o. without difficulty, though feels he may have a slightly decreased appetite from usual. Pain is not changed with food consumption. He does have known gallstones, says this is unique from the gallstone pain. He has been diagnosed with parathyroid neoplasm, says he has not had any colonoscopies done. He says that he has taken Bentyl in the past, says that he has not taken any recently but does feel like it might be effective. No recent ibuprofen use. Physical exam reassuring. Pedro Pablo is alert and interactive, no acute distress. Easy work of breathing, lung sounds clear bilaterally. Normal heart sounds. Abdomen is soft, nondistended, diffusely tender to palpation along the lower abdomen, no point tenderness/rebound tenderness or abdominal rigidity/guarding. No obvious masses. Normoactive bowel sounds. No obvious rashes. Vital signs significant for mild tachycardia, heart rate 105. This appears consistent with previous visits, in which patient's heart rate has been between 100 and 120 bpm. DDx includes but is not limited to functional abdominal pain, IBS, UTI, muscle strain; very low suspicion for serious etiologies such as IBD, partial bowel obstruction, intestinal ischemia, appendicitis, or incarcerated hernia. I independently interpreted the following tests: CBC, CMP, lactate, UA all reassuring. No changes from previous. While in the emergency department Pedro Pablo received dicyclomine and Toradol for discomfort. He reports that pain is still there, but mostly noticeable when he pushes down. Pain is located across the lower abdomen, has not changed. Pedro Pablo has had multiple (9) emergency department visits in the last month and multiple clinic visits as well. I did review previous medical records, including the emergency department visit from 10/11/2023 for evaluation of left lower quadrant pain, clinic visit 10/10/[address] Vivar, and emergency department visit from 10/07/2023 for palpitations and hypocalcemia. No new diagnoses other than testicular lump. Pedro Pablo was seen by general surgery for evaluation of symptomatic cholelithiasis and biliary colic, cholecystectomy to be performed in an outpatient basis. Workup today reassuring. No red flags concerning for serious abdominal pathology at this time requiring CT imaging. Discussed risks versus benefits of CT scan with patient, as workup today is reassuring he is agreeable to monitoring symptoms at home with close PCP and surgery follow-up for colonoscopy. Reviewed red flags indicating need for return to emergency care, as well as symptomatic management. He is agreeable with plan of care. Quality:SDOH Health Related Social Needs: Health related social needs transpo insecurity FORMERLY [facility] All Active Problems (Updated 10/14/23 @ 00:08 by HAMMAD WILEY) Left lower quadrant abdominal pain (Acute) Abdominal pain (Acute) Bronchitis (Acute) 10/08/2023 - Dx @ [facility] E/R Chani MORALES Bronchitis (Acute) Hypocalcemia (Acute) Heart palpitations (Acute) Ankle pain (Acute) Testicle lump (Acute) Right thigh pain (Acute) Epigastric discomfort (Acute) Hypocalcemia (Acute) Hypocalcemia (Acute) Abdominal pain, suprapubic (Acute) Chest pain (Acute) Hamstring tendinitis of left thigh (Acute) Pes anserine bursitis (Acute) Hypernatremia (Acute) Cervical radiculopathy (Acute) URI (upper respiratory infection) (Acute) Left-sided Flower's palsy (Acute) Neck pain on left side (Acute) Constipation (Acute) Grief reaction (Chronic) Opiate dependence, continuous (Acute) Cellulitis (Acute) Cholelithiases (Acute) 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 ED Left arm numbness (Acute) Gynecomastia, male (Acute) b/l, per CT (Jul 2022).. Possible 2' Methadone, Clnzpm (?). Surg eval (+)/No further action. CKD (chronic kidney disease) stage 2, GFR 60-89 ml/min (Acute) GFR 64-65, with Hx FLORESITA and GFR < 45 Complex medical condition (Chronic) Serious electrolyte imbalances, with gynecomastia, possible MEN Dx, CKD and anemia with baseline anxiety and Hx PTSD. History of electrolyte imbalance (Acute) Neck pain on left side (Acute) with shoulder, upper back pain.. torticollis, radiating into left hip/leg Pulmonary nodule 1 cm or greater in diameter (Chronic) Therapeutic opioid induced constipation (Acute) Sphincter of Oddi dysfunction (Chronic) Abnormal CT scan, kidney (Acute) Intrahepatic bile duct dilation (Acute) Common bile duct dilatation (Chronic) Has been dilated for quite some time, now more-so. Normal LFTs. Known gallstones. Abdominal pain (Acute) Iatrogenic hypocalcemia (Acute) Multiple endocrine neoplasia type I (Chronic) Chronic constipation (Chronic) Primary hyperparathyroidism (Chronic) Depression (Chronic) Hypomagnesemia (Chronic) Hypocalcemia (Chronic) Depression (Chronic) Suicidal ideation (Acute) Elevated parathyroid hormone (Acute) Family history of coronary arteriosclerosis (Chronic) Father of SD at 50, mother had SD at 42 Severe anxiety with panic (Chronic) Cellulitis (Acute) Medical History Hypokalemia Hypocalcemia Anxiety Depression Hyperlipidemia Family history of multiple endocrine neoplasia, type 1 PTSD (post-traumatic stress disorder) Per pt. states no triggers at this time. Surgical History H/O parathyroidectomy Family History Mother Anxiety Asthma Depression Sister Anxiety Depression Father Cancer lung & stomach Depression Diabetes Hypertension MEN 1 (multiple endocrine neoplasia) Social History Smoking/Tobacco Use Status: Never Smoking risk assessment performed?: Yes Alcohol Intake: never Drug use: Rarely Substance use type: does not use and former substance user Adopted: No Caregiver/Support person: No Foster care: No Household members: none Housing: apartment Number of Children: 0 Communication Needs: None Education Level: high school Do you need help understanding health information?: Never current occupation: [employer] Pets and animals: Yes (Ally) Pets and animals: dog(s) Sexually active: No Do you think of yourself as: straight/heterosexual Current gender identity: male What is your relationship status?: How often do you talk on the phone with friends or family?: twice per week How often do you get together with friends or relatives?: never Do you belong to any clubs or organized social groups?: no Panel score (0-1 are the most socially isolated patients): 0 What type of physical activity do you participate in: walking Duration: 15-30 minutes/day Frequency: 5-6 times per week Maryam/Judaism: Mormon Special maryam needs: No Seatbelt use: always Helmet use: Yes Helmet use: always Drive intox or ride w/intox tow car 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
[2023-10-14] MEDS: Dicyclomine 10 MG CAP PO (09:37)
[2023-10-14] MEDS: Ketorolac 15 MG/ML VIAL IVP (09:37)
[2023-10-14 09:39] LABS: Abs Immature Grans 0.02 10^3/uL (0.0-0.06); Absolute Basophil Count 0.04 10^3/uL (0.0-0.2); Absolute Eosinophil Count 0.15 10^3/uL (0.0-0.7); Absolute Lymphocyte Count 1.57 10^3/uL (1.2-3.4); Absolute Monocyte Count 0.93 10^3/uL (0.1-0.8); Absolute Neutrophil Count 4.64 10^3/uL (1.2-6.7); Basophils % 0.5; HCT 35.1 % (40.0-50.0); HGB 11.8 g/dL (13.5-17.5); Immature Grans % 0.3; Lymphocytes % 21.4; MCH 29.5 pg (27.0-33.0); MCHC 33.6 % (32.0-36.0); MCV 88 fL (80-95); MPV 10.6 fL (8.0-11.0); Monocytes % 12.7; Neutrophils % 63.1; Platelet Count 262 10^3/uL (130-400); RDW 12.7 % (11.8-14.1); RDW-SD 40.4 fL; WBC 7.35 10^3/uL (4.4-10.8)
[2023-10-14 09:40] LABS: Lactate 0.7 mmol/L (0.6-1.4)
[2023-10-14 09:55] LABS: Bilirubin Negative (Negative); Blood Negative (Negative); Clarity Clear (Clear); Glucose Negative (Negative); Ketones Negative (Negative); Leukocyte Esterase Negative (Negative); Nitrite Negative (Negative); Specific Gravity 1.015 (1.005-1.025); Urobilinogen 0.2 mg/dL (Up to 0.2)
[2023-10-14 09:55] LABS: ALT 44 U/L (16-63); AST 25 U/L (15-37); Albumin 3.1 g/dL (3.4-5.0); Alkaline Phosphatase 138 U/L (46-116); Anion Gap 1.9 mmol/L (3-11); BUN 17 mg/dL (7-18); Bilirubin, Total 0.3 mg/dL (0.2-1.0); CO2 35.1 mmol/L (21.0-32.0); CREATININE 1.4 mg/dL (0.70-1.30); Calcium 7.7 mg/dL (8.5-10.1); Chloride 100 mmol/L (98-107); Estimated GFR 69.34 (mL/min/1.73m2); Glucose 100 mg/dL (74-106); Potassium 3.6 mmol/L (3.5-5.1); Sodium 137 mmol/L (136-145); Total Protein 7.5 g/dL (6.4-8.2)
--- NOTE | 2023-10-14 10:26 | NUR.NOTE ---
Referral given to Care Management to assist the patient with setting up a follow up with his Primary Care Provider as soon as possible
[2023-10-14 10:31] VITALS: BP 121/64; PULSE 92; O2SAT 94
--- NOTE | 2023-10-14 22:02 | NUR.NOTE ---
Referral faxed to [facility], Dr Vivar to f/u radha for abd pain.Nursing Note:
== END 2023-10-14 10:31 | disposition home or self-care (01) ==
PROVIDERS: Emergency Provider Nurse Practitioner Family; PCP Family Medicine
DX: R10.32 Left lower quadrant pain (principal); E78.5 Hyperlipidemia, unspecified; E31.21 Multiple endocrine neoplasia [MEN] type I; N18.2 Chronic kidney disease, stage 2 (mild)
CPT/HCPCS: 36415; 80053; 96374; 99284; 81003; 83605; 85025; 99283; J1885

== ENCOUNTER 2023-10-15 00:05 | Emergency (ER) | payer OTHER, SELFPAY ==
[2023-10-15 00:08] VITALS: BP 141/87; PULSE 92; RESP 18; TEMP 36.6; O2SAT 97
--- NOTE | 2023-10-15 00:15 | DI.CT_ITS ---
Exam(s) CT ABDOMEN PELVIS W EXAM: CT ABDOMEN PELVIS W CLINICAL HISTORY: continued/worse lower abd pain. TECHNIQUE: Imaging Protocol: Axial computed tomography images with coronal and sagittal reformatted images were created and reviewed CONTRAST MATERIAL: Intravenous: Omnipaque-350 100cc Oral: None COMPARISON: CT CT ABDOMEN PELVIS W from 09/06/2023 FINDINGS: VISUALIZED LUNG BASES: No nodules nor pleural effusions evident. ABDOMEN: There is no ascites. LIVER: There are no focal hepatic lesions evident. No dilated intrahepatic ducts. GALLBLADDER/BILIARY: No obvious gallbladder pathology. CBD diameter upper normal.. PANCREAS: No evidence of pancreatic mass nor dilatation of the pancreatic duct. SPLEEN: Spleen is not enlarged. No obvious intrasplenic lesions. Tiny calcified granuloma noted in the spleen. Splenic and portal veins are patent. ADRENALS: There are no significant adrenal masses. KIDNEYS:Right kidney unremarkable. Small cortical cysts in left kidney noted measuring up to 1 cm. No solid renal masses. No calculi nor hydronephrosis.. Uniform mild thickening of the urinary bladd er wall is either related to cystitis or under distension. ABDOMINAL AORTA: Abdominal aorta is not enlarged. LYMPH NODES:There is no retroperitoneal nor paraaortic adenopathy. ABDOMINAL WALL: No evidence of significant anterior abdominal wall nor inguinal hernia. GI: Abundant fecal material in the colon-probable constipation, more so than previous. There is feca lization of distal small bowel loops. No evidence of bowel obstruction. The sigmoid is redundant and contains abundant fecal material. In the right lower quadrant there is subtle haziness fat stranding adjacent to the right side of the sigmoid at this level without an obvi ous diverticulum in this region. PELVIS: GI: The appendix is difficult to identify is distinct structure. However, there is no evidence of ob vious appendicitis. LYMPH NODES: There is no intrapelvic nor inguinal adenopathy. REPRODUCTIVE: Prostate not enlarged. URINARY BLADDER: Uniformly thickened wall either related to cystitis or under distension. OSSEOUS: No fractures and no significant osseous lesions. IMPRESSION: 1. There is abundant fecal material throughout the colon as well as fecalization of distal small krystal l loops without evidence of bowel obstruction. 2. The sigmoid is quite redundant and in the right hemipelvis there is fat stranding adjacent to a sm all area of the sigmoid but without evidence of diverticuli in this region. Therefore possibly sugge sting epiploic appendagitis or focal fat necrosis. This appears to be the acute finding here. 3. Other findings as above. RADIATION DOSE DELIVERED: 1,525.55mGy.cm Total DLP DATA REPOSITORY: All CT scans at this facility are submitted to the National Radiology Data Registry (NRDR) Dose Index Registry (DIR) with the [employer] (A[employer]). RADIATION OPTIMIZATION: All CT scans at this facility use at least one of these dose optimization te chniques: automated exposure control; mA and/or kV adjustment per patient size (includes targeted exa ms where dose is matched to clinical indication); or iterative reconstruction.
--- NOTE | 2023-10-15 00:20 | ED.GENADUL_ITS ---
Discharge Plan Disposition Patient Disposition: Home Condition: Good Discharge Details Clinical Impression: Epiploic appendagitis, Chronic constipation Primary Care Provider: Brendon Vivar ED Provider: Santiago Ibarra [place] Meds and New Rx's Prescriptions: Continued gabapentin 300 mg capsule 300 mg PO BID Qty: 180 3RF cyclobenzaprine 10 mg tablet 10 mg PO TID PRN (Reason: muscle spasm) Qty: 30 3RF methadone 10 mg/5 mL solution 105 mg PO QAM magnesium gluconate 27 mg magnesium (500 mg) tablet 27 mg PO BID Qty: 60 3RF Patient Comments: Pt states he has been taking 1,000 mg twice a day x 2 weeks. - ML 09/26/23 calcitriol 0.5 mcg capsule 0.5 mcg PO BID Qty: 360 3RF Hold Instructions: Resume on 06/15/22. diclofenac sodium 1 % gel 4 g topical QID Qty: 100 6RF Rx Instructions: apply to single knee, ankle, foot; for foot includes sole/toes/top of foot polyethylene glycol 3350 17 gram/dose powder 17 g PO DAILY omeprazole 40 mg capsule,delayed release(DR/EC) 40 mg PO DAILY Qty: 90 3RF venlafaxine 37.5 mg tablet extended release 24hr 37.5 mg PO DAILY Qty: 60 0RF clonazepam 1 mg tablet 1 mg PO BID Qty: 56 0RF calcium carbonate [Tums] 200 mg calcium (500 mg) tablet,chewable 2,000 mg PO BID Hold Instructions: Resume on 05/12/23. Please hold your nightly dose tonight and your a.m. dose tomorrow morning. prochlorperazine maleate 5 mg tablet 5 mg PO TID PRN (Reason: acute nausea) Qty: 30 0RF Discharge Instructions Instructions: Constipation (ED) Additional Instructions: Your abdominal pain seems likely to be coming from epiploic appendagitis as we discussed. You do have continued evidence of significant constipation. Would continue fiber and hydration, MiraLAX once a day, alternate ibuprofen with acetaminophen. Follow-up with primary care for further management of constipation. Return to ED for fever, vomiting, significantly worsening pain, other concerns. Referrals: Brendon Vivar DO [Primary Care Provider] - HPI General Mode of arrival: ambulatory . Date/Time Provider Initiated Documentation: 10/15/23 00:07 . Limitations to Documentation: no limitations . Information obtained by: patient, RN notes reviewed and old records reviewed . HPI Narrative: Patient returns to ED with complaint of continued and worsening lower abdominal pain. He has had this pain now for over a week. He has had multiple visits to the ED including earlier today. He has known gallbladder disease with some right upper quadrant pain. However this low abdominal pain is new over the last week to 10 days, is getting worse. Has been using ibuprofen and dicyclomine. Had been using MiraLAX as it was thought to possibly be related to constipation. Now having diarrhea so he has stopped the MiraLAX. Some nausea but no vomiting. Does report decreased appetite. Has had unremarkable labs and negative urinalysis on previous visits for this pain. Related Data Home Medications Medication Instructions Recorded Confirmed magnesium gluconate 27 mg 27 mg PO BID #60 tabs 11/08/22 10/15/23 magnesium (500 mg) tablet calcium carbonate (Tums) 2,000 mg PO BID 02/02/23 10/15/23 calcitriol 0.5 mcg capsule 0.5 mcg PO BID #360 caps 04/21/23 10/15/23 diclofenac sodium 1 % topical gel 4 g topical QID #100 grams 04/21/23 10/15/23 methadone 10 mg/5 mL oral solution 105 mg PO QAM 06/12/23 10/15/23 polyethylene glycol 3350 17 17 g PO DAILY 06/12/23 10/15/23 gram/dose oral powder gabapentin 300 mg capsule 300 mg PO BID #180 caps 06/23/23 10/15/23 omeprazole 40 mg capsule,delayed 40 mg PO DAILY #90 caps 07/21/23 10/15/23 release cyclobenzaprine 10 mg tablet 10 mg PO TID PRN muscle spasm #30 08/18/23 10/15/23 tabs prochlorperazine maleate 5 mg 5 mg PO TID PRN acute nausea #30 09/06/23 10/15/23 tablet tabs clonazepam 1 mg tablet 1 mg PO BID #56 tabs 10/10/23 10/15/23 venlafaxine 37.5 mg 37.5 mg PO DAILY #60 tabs 10/10/23 10/15/23 tablet,extended release 24 hr Previous Rx's Medication Instructions Recorded magnesium gluconate 27 mg 27 mg PO BID #60 tabs 11/08/22 magnesium (500 mg) tablet calcitriol 0.5 mcg capsule 0.5 mcg PO BID #360 caps 04/21/23 diclofenac sodium 1 % topical gel 4 g topical QID #100 grams 04/21/23 gabapentin 300 mg capsule 300 mg PO BID #180 caps 06/23/23 omeprazole 40 mg capsule,delayed 40 mg PO DAILY #90 caps 07/21/23 release cyclobenzaprine 10 mg tablet 10 mg PO TID PRN muscle spasm #30 08/18/23 tabs prochlorperazine maleate 5 mg 5 mg PO TID PRN acute nausea #30 09/06/23 tablet tabs clonazepam 1 mg tablet 1 mg PO BID #56 tabs 10/10/23 venlafaxine 37.5 mg 37.5 mg PO DAILY #60 tabs 10/10/23 tablet,extended release 24 hr Allergies Allergy/AdvReac Type Severity Reaction Status Date / Time codeine Allergy Intermediate pass out Verified 10/15/23 00:14 Penicillins Allergy Skin Rash Verified 10/15/23 00:14 amoxicillin AdvReac Intermediate Nausea Verified 10/15/23 00:14 dextromethorphan AdvReac Intermediate Other (See Verified 10/15/23 00:14 [From NyQuil] Comment) doxylamine [From NyQuil] AdvReac Intermediate Other (See Verified 10/15/23 00:14 Comment) pseudoephedrine [From NyQuil] AdvReac Intermediate Other (See Verified 10/15/23 00:14 Comment) General Stated Complaint: Abd Prob ADRIANA: 3 Review of Systems Narrative: Per HPI Exam Narrative Exam Narrative: Const: WDWN male in NAD. VS per triage. HEENT: NC/AT. Normal facial exam. Eyes: Normal conjunctiva and sclera. Neck: Supple. Trachea midline. Lungs: Normal respiratory effort. GI: Soft and ND. Mildly tender in the suprapubic/LLQ area without guarding or rebound Neuro: A+O x 3. Normal speech, mentation, gait. Cranial nerves II - XII grossly intact. No gross motor or sensory deficit. Course Vital Signs Vital signs: Vital Signs Temperature 97.9 F 10/15/23 00:08 Pulse 92 H 10/15/23 00:08 Respiratory Rate 18 10/15/23 00:08 Blood Pressure 141/87 H 10/15/23 00:08 Pulse Oximetry 97 10/15/23 00:08 Temperature 97.9 F 10/15/23 00:08 Pulse 92 H 10/15/23 00:08 Respiratory Rate 18 10/15/23 00:08 Respiratory Effort Normal 10/15/23 00:11 Blood Pressure 141/87 H 10/15/23 00:08 Pulse Oximetry 97 10/15/23 00:08 Oxygen Delivery Method Room Air 10/15/23 00:08 Oxygen Flow Rate 0 10/15/23 00:08 Pain Level 6 10/15/23 00:08 Medical Decision Making Patient presenting with complaint of worsening pain despite reassuring labs and negative urinalysis since this pain began about 10 days ago. He is mildly tender in the suprapubic left lower quadrant region. He does not have any guarding or rebound. Urinalysis has been negative multiple times. Labs have been reassuring. He has had previous multiple abdominal pelvic CT scans and has known gallstones and somewhat chronic right upper quadrant pain. This is different than that pain. We had a long discussion regarding risk-benefits of CT given his multiple previous imaging. Given his continued complaint of worsening pain now with some tenderness on exam we will proceed with CT of the abdomen pelvis. No repeat laboratory studies or urinalysis tonight. Preliminary CT scan per [facility] shows continued significant evidence of constipation, probable epiploic appendagitis and derek mesentery. It is likely this fat stranding and epiploic appendagitis that is causing his pain. He was taking the MiraLAX 3 times a day recommended dropping to just 1 time a day to help with his constipation but not cause diarrhea. He may continue use of ibuprofen and dicyclomine. Should alternate the ibuprofen with acetaminophen. Follow-up with PCP for further management of his chronic constipation. Return precautions provided. Medical Records Medical records reviewed: Yes I reviewed the patient's medical records. Medical records narrative: Have reviewed office visits, ED visits, diagnostic study results. Imaging Data Radiologic Study: Imaging: CT Scan Radiologist's impression: IMPRESSION: 1. Fat stranding, haziness about portions of sigmoid colon, most prominently right lower quadrant, right hemipelvis, suggesting possible epiploic appendagitis, focal fat necrosis or intraperitoneal focal fat infarction (IFFI). 2. Evidence of derek mesentery, nonspecific, possibly mesenteric panniculitis, or other process. 3. Numerous mesenteric lymph, appearing slightly progressed or more prominent than 09/06/2023. 4. Diffuse wall thickening urinary bladder versus lack of distension. Correlate for infection/inflammation, cystitis, or other process. 5. Wall thickening rectum. Large amount of stool of the colon. Evidence of wall mucosal thickening distal ileum, terminal ileum. Evidence of small bowel feces, fecalization distal ileum, terminal ileum, suggesting stasis. 6. Common duct appears dilated up to about 1 cm. No calcific stone seen of the common duct. Mild intrahepatic bile duct dilatation. Correlation with ultrasound scan, possibly MRI with MRCP recommended. 7. Please see body of report for additional findings. Dictated and Authenticated by: Uday Nielson MD. Lab Data Lab results reviewed: Yes I reviewed the patient's lab results. Lab results narrative: No labs on this visit but reviewed recent labs obtained over the last 2 weeks. Quality:[facility] Health Related Social Needs: Health related social needs transpo insecurity [facility] All Active Problems (Updated 10/15/23 @ 02:35 by Santiago Ibarra MD) Chronic constipation (Acute) Epiploic appendagitis (Acute) Hypokalemia (Acute) Abdominal pain, lower (Acute) Left lower quadrant abdominal pain (Acute) Abdominal pain (Acute) Bronchitis (Acute) 10/08/2023 - Dx @ [facility] E/R Chani MORALES Bronchitis (Acute) Hypocalcemia (Acute) Heart palpitations (Acute) Ankle pain (Acute) Testicle lump (Acute) Right thigh pain (Acute) Epigastric discomfort (Acute) Hypocalcemia (Acute) Hypocalcemia (Acute) Abdominal pain, suprapubic (Acute) Chest pain (Acute) Hamstring tendinitis of left thigh (Acute) Pes anserine bursitis (Acute) Hypernatremia (Acute) Cervical radiculopathy (Acute) URI (upper respiratory infection) (Acute) Left-sided Flower's palsy (Acute) Neck pain on left side (Acute) Constipation (Acute) Grief reaction (Chronic) Opiate dependence, continuous (Acute) Cellulitis (Acute) Cholelithiases (Acute) 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 Possible 2' Methadone, Clnzpm (?). Surg eval (+)/No further action. History of electrolyte imbalance (Acute) Neck pain on left side (Acute) with shoulder, upper back pain.. torticollis, radiating into left hip/leg Pulmonary nodule 1 cm or greater in diameter (Chronic) Therapeutic opioid induced constipation (Acute) Sphincter of Oddi dysfunction (Chronic) Abnormal CT scan, kidney (Acute) Intrahepatic bile duct dilation (Acute) Common bile duct dilatation (Chronic) Has been dilated for quite some time, now more-so. Normal LFTs. Known gallstones. Abdominal pain (Acute) Iatrogenic hypocalcemia (Acute) Multiple endocrine neoplasia type I (Chronic) Chronic constipation (Chronic) Depression (Chronic) Hypomagnesemia (Chronic) Hypocalcemia (Chronic) Depression (Chronic) Suicidal ideation (Acute) Elevated parathyroid hormone (Acute) Family history of coronary arteriosclerosis (Chronic) Father of [place] at 50, mother had [place] at 42 Severe anxiety with panic (Chronic) Cellulitis (Acute) Medical History CKD (chronic kidney disease) stage 2, GFR 60-89 ml/min GFR 64-65, with Hx FLORESITA and GFR < 45 Primary hyperparathyroidism Complex medical condition Serious electrolyte imbalances, with gynecomastia, possible MEN Dx, CKD and anemia with baseline anxiety and Hx PTSD. Hypocalcemia Anxiety Depression Hyperlipidemia Family history of multiple endocrine neoplasia, type 1 PTSD (post-traumatic stress disorder) Per pt. states no triggers at this time. Surgical History H/O parathyroidectomy Family History Mother Anxiety Asthma Depression Sister Anxiety Depression Father Cancer lung & stomach Depression Diabetes Hypertension MEN 1 (multiple endocrine neoplasia) Social History Smoking/Tobacco Use Status: Never Smoking risk assessment performed?: Yes Alcohol Intake: never Drug use: Rarely Substance use type: does not use and former substance user Adopted: No Caregiver/Support person: No Foster care: No Household members: none Housing: apartment Number of Children: 0 Communication Needs: None Education Level: high school Do you need help understanding health information?: Never current occupation: [employer] Pets and animals: Yes (Ally) Pets and animals: dog(s) Sexually active: No Do you think of yourself as: straight/heterosexual Current gender identity: male What is your relationship status?: How often do you talk on the phone with friends or family?: twice per week How often do you get together with friends or relatives?: never Do you belong to any clubs or organized social groups?: no Panel score (0-1 are the most socially isolated patients): 0 What type of physical activity do you participate in: walking Duration: 15-30 minutes/day Frequency: 5-6 times per week Maryam/Alevism: Lutheran Special maryam needs: No Seatbelt use: always Helmet use: Yes Helmet use: always Drive intox or ride w/intox independent 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
[2023-10-15] MEDS: Normal Saline - Diluent 50 ML VIAL IJ (00:48)
[2023-10-15] MEDS: Omnipaque 350 MG/ML 100 ML BTL IJ (00:51)
[2023-10-15] MEDS: Normal Saline Flush 10 ML SYR IVP (00:52)
[2023-10-15] MEDS: Normal Saline 1,000 ML 1000 ML IV (01:03)
[2023-10-15 01:28] VITALS: BP 111/59; RESP 18; O2SAT 97
--- NOTE | 2023-10-15 02:15 | DI.VRAD_ITS ---
PROCEDURE INFORMATION: Exam: CT Abdomen And Pelvis With Contrast Exam date and time: 10/15/2023 12:54 AM Age: 28 years old Clinical indication: Abdominal pain; Localized; Patient HX: Continued/worse lower abd pain TECHNIQUE: Imaging protocol: Computed tomography of the abdomen and pelvis with contrast. Radiation optimization: All CT scans at this facility use at least one of these dose optimization techniques: automated exposure control; mA and/or kV adjustment per patient size (includes targeted exams where dose is matched to clinical indication); or iterative reconstruction. Contrast material: OMNIPAQUE 350; Contrast volume: 100 ml; Contrast route: INTRAVENOUS (IV); COMPARISON: MR ABDOMEN WO 09/10/2023 11:05 AM FINDINGS: Lungs: Visualized portions lung bases included appear clear bilaterally. Liver: Stable appearance of the liver. Gallbladder and bile ducts: No calcific stone seen of gallbladder. Common duct appears dilated up to about 1 cm. No calcific stone seen of the common duct. Mild intrahepatic bile duct dilatation. Pancreas: Stable appearance pancreas. Spleen: Stable appearance of spleen. Adrenal glands: Adrenals unremarkable. Kidneys and ureters: Hypodense lesion upper left kidney possibly cyst. Stomach and bowel: Wall thickening rectum. Large amount of stool of the colon. Stomach appears partly filled with debris, gas. Bowel pattern appears nonobstructive. Evidence of wall mucosal thickening distal ileum, terminal ileum. Evidence of small bowel feces, fecalization distal ileum, terminal ileum, suggesting stasis. Appendix: No acute appendicitis seen. Intraperitoneal space: No free intraperitoneal air and no free abdominal or pelvic fluid collections seen. Evidence of derek mesentery, nonspecific, possibly mesenteric panniculitis, or other process. Vasculature: No aneurysm seen of abdominal aorta. Slightly swirled configuration mesentery vessels on the coronal series/images. Lymph nodes: Numerous mesenteric lymph, appearing slightly progressed or more prominent than 09/06/2023. Urinary bladder: Urinary bladder appears partly filled. Diffuse wall thickening urinary bladder versus lack of distension. Reproductive: Prostate appears mildly heterogeneous, appears to contain calcification. Seminal vesicles unremarkable. Bones/joints: Unremarkable. Soft tissues: Tiny fat containing umbilical/paraumbilical hernia. Small fat containing right inguinal hernia. Fat stranding, haziness about portions of sigmoid colon, most prominently right lower quadrant, right hemipelvis, suggesting possible epiploic appendagitis, focal fat necrosis or intraperitoneal focal fat infarction (IFFI). IMPRESSION: 1. Fat stranding, haziness about portions of sigmoid colon, most prominently right lower quadrant, right hemipelvis, suggesting possible epiploic appendagitis, focal fat necrosis or intraperitoneal focal fat infarction (IFFI). 2. Evidence of derek mesentery, nonspecific, possibly mesenteric panniculitis, or other process. 3. Numerous mesenteric lymph, appearing slightly progressed or more prominent than 09/06/2023. 4. Diffuse wall thickening urinary bladder versus lack of distension. Correlate for infection/inflammation, cystitis, or other process. 5. Wall thickening rectum. Large amount of stool of the colon. Evidence of wall mucosal thickening distal ileum, terminal ileum. Evidence of small bowel feces, fecalization distal ileum, terminal ileum, suggesting stasis. 6. Common duct appears dilated up to about 1 cm. No calcific stone seen of the common duct. Mild intrahepatic bile duct dilatation. Correlation with ultrasound scan, possibly MRI with MRCP recommended. 7. Please see body of report for additional findings. Dictated and Authenticated by: Uday Nielson MD. Ordering:ROSARIO Henderson MD
[2023-10-15 02:58] VITALS: BP 114/65; PULSE 71; RESP 16; O2SAT 97
== END 2023-10-15 03:00 | disposition home or self-care (01) ==
PROVIDERS: Emergency Provider Emergency Medicine; PCP Family Medicine
DX: R10.32 Left lower quadrant pain (principal); K59.09 Other constipation; K63.89 Other specified diseases of intestine
CPT/HCPCS: 96360; 99285; 74177; 99283; J3490

== ENCOUNTER 2023-10-19 00:35 | Emergency (ER) | payer OTHER, SELFPAY ==
[2023-10-19 00:38] VITALS: BP 143/81; PULSE 117; RESP 16; TEMP 37.2; O2SAT 96
[2023-10-19 00:44] VITALS: RESP 16
--- NOTE | 2023-10-19 00:45 | DI.RAD_ITS ---
Exam(s) XR CHEST 2V PA LATERAL EXAM: XR CHEST 2V PA LATERAL CLINICAL HISTORY: Cough, shortness of breath TECHNIQUE: 2D digital imaging was performed. Two views. COMPARISON: CR XR CHEST 2V PA LATERAL from 07/14/2023 FINDINGS: HEART: Normal size. Aorta: Not dilated. PULMONARY VASCULATURE: Normal. LUNGS: Clear. PLEURAL SPACE: No pleural effusion or pneumothorax. BONE:Unremarkable for age. Soft tissues: Unremarkable. IMPRESSION: No acute abnormality. DATA REPOSITORY: RADIATION DOSE DELIVERED:
--- NOTE | 2023-10-19 00:45 | RT.EKG_ITS ---
APPROVED REPORT Exam: Resting ECG Reason for Exam: chest pain Patient Location: E HR:99 bpm ECG Measurements Heart Rate 99 AXIS OR 173 P 31 QRSd 96 QRS 41 QT 363 T 28 QTc 467 Conclusion Sinus rhythm...normal P axis, V-rate 60- 99 Non-specific intraventricualr conduction delay, scattered repolarization abnormalities with T wave fl attening, predominantly in limb leads, no definite ischemia
[2023-10-19] MEDS: Albuterol/Ipratropium 3 ML UPD VIAL UPD (01:06)
--- NOTE | 2023-10-19 01:24 | ED.GENADUL_ITS ---
Discharge Plan Disposition Patient Disposition: Home Condition: Improving Discharge Details Clinical Impression: Bronchitis Primary Care Provider: Brendon Vivar ED Provider: Bryan Ramirez Home Meds and New Rx's Prescriptions: New azithromycin [Zithromax] 250 mg tablet 250 mg PO DAILY 4 Days Qty: 4 0RF Rx Instructions: start on day 2 of therapy albuterol sulfate 90 mcg/actuation HFA aerosol inhaler 2 puff inhalation Q6H PRN (Reason: shortness of breath or wheezing) Qty: 8.5 0RF No Action gabapentin 300 mg capsule 300 mg PO BID Qty: 180 3RF cyclobenzaprine 10 mg tablet 10 mg PO TID PRN (Reason: muscle spasm) Qty: 30 3RF methadone 10 mg/5 mL solution 105 mg PO QAM magnesium gluconate 27 mg magnesium (500 mg) tablet 27 mg PO BID Qty: 60 3RF Patient Comments: Pt states he has been taking 1,000 mg twice a day x 2 weeks. - ML 09/26/23 calcitriol 0.5 mcg capsule 0.5 mcg PO BID Qty: 360 3RF Hold Instructions: Resume on 06/15/22. diclofenac sodium 1 % gel 4 g topical QID Qty: 100 6RF Rx Instructions: apply to single knee, ankle, foot; for foot includes sole/toes/top of foot polyethylene glycol 3350 17 gram/dose powder 17 g PO DAILY omeprazole 40 mg capsule,delayed release(DR/EC) 40 mg PO DAILY Qty: 90 3RF venlafaxine 37.5 mg tablet extended release 24hr 37.5 mg PO DAILY Qty: 60 0RF clonazepam 1 mg tablet 1 mg PO BID Qty: 56 0RF calcium carbonate [Tums] 200 mg calcium (500 mg) tablet,chewable 2,000 mg PO BID Hold Instructions: Resume on 05/12/23. Please hold your nightly dose tonight and your a.m. dose tomorrow morning. prochlorperazine maleate 5 mg tablet 5 mg PO TID PRN (Reason: acute nausea) Qty: 30 0RF Discharge Instructions Instructions: Acute Bronchitis (ED) Additional Instructions: Take 1 Zithromax tablet every day for the next 4 days, beginning tomorrow. You have already been given a dose for today here in the emergency room. You can take 2 puffs on the albuterol inhaler prescribed, every 2-4 hours as needed for symptoms of coughing or wheezing. Expect symptoms to slowly resolve over the next 3 to 5 days. Follow-up with your regular primary care doctor for recheck and further management, especially if symptoms not improving with this care plan. You can always return to the ER for any new concerns or sudden changes in your health which you feel require emergency medical attention. Discharge Data Discharge Physician: Bryan Ramirez [facility] General Date/Time Provider Initiated Documentation: 10/19/23 00:37 . HPI Narrative: The patient is a 28-year-old male, with a complex past behavioral health history including PTSD and chronic opioid misuse disorder currently on methadone therapy, who is a frequent visitor to the emergency room for multiple complaints typically involving some version of chest pain, who presents to the emergency room this evening complaining of chest tightness, coughing, and some shortness of breath which awoke him from sleeping tonight. The patient states that he began having sensation of chest congestion on Friday and developed an interval cough over the next few days. Tonight, the patient was coughing and developed some shortness of breath which awoke him from sleep and made him feel anxious. The patient reports that he has had some intermittent upper respiratory tract symptoms as well including a runny nose and transient left-sided ear discomfort. The patient reported that he had a fever today and was found to have a temperature of 99.9 F in triage. Related Data Home Medications Medication Instructions Recorded Confirmed magnesium gluconate 27 mg 27 mg PO BID #60 tabs 11/08/22 10/15/23 magnesium (500 mg) tablet calcium carbonate (Tums) 2,000 mg PO BID 02/02/23 10/15/23 calcitriol 0.5 mcg capsule 0.5 mcg PO BID #360 caps 04/21/23 10/15/23 diclofenac sodium 1 % topical gel 4 g topical QID #100 grams 04/21/23 10/15/23 methadone 10 mg/5 mL oral solution 105 mg PO QAM 06/12/23 10/15/23 polyethylene glycol 3350 17 17 g PO DAILY 06/12/23 10/15/23 gram/dose oral powder gabapentin 300 mg capsule 300 mg PO BID #180 caps 06/23/23 10/15/23 omeprazole 40 mg capsule,delayed 40 mg PO DAILY #90 caps 07/21/23 10/15/23 release cyclobenzaprine 10 mg tablet 10 mg PO TID PRN muscle spasm #30 08/18/23 10/15/23 tabs prochlorperazine maleate 5 mg 5 mg PO TID PRN acute nausea #30 09/06/23 10/15/23 tablet tabs clonazepam 1 mg tablet 1 mg PO BID #56 tabs 10/10/23 10/15/23 venlafaxine 37.5 mg 37.5 mg PO DAILY #60 tabs 10/10/23 10/15/23 tablet,extended release 24 hr albuterol sulfate 90 mcg/actuation 2 puff inhalation Q6H PRN 10/19/23 aerosol inhaler shortness of breath or wheezing #8.5 grams azithromycin 250 mg tablet 250 mg PO DAILY 4 days #4 tabs 10/19/23 (Zithromax) Previous Rx's Medication Instructions Recorded magnesium gluconate 27 mg 27 mg PO BID #60 tabs 11/08/22 magnesium (500 mg) tablet calcitriol 0.5 mcg capsule 0.5 mcg PO BID #360 caps 04/21/23 diclofenac sodium 1 % topical gel 4 g topical QID #100 grams 04/21/23 gabapentin 300 mg capsule 300 mg PO BID #180 caps 06/23/23 omeprazole 40 mg capsule,delayed 40 mg PO DAILY #90 caps 07/21/23 release cyclobenzaprine 10 mg tablet 10 mg PO TID PRN muscle spasm #30 08/18/23 tabs prochlorperazine maleate 5 mg 5 mg PO TID PRN acute nausea #30 09/06/23 tablet tabs clonazepam 1 mg tablet 1 mg PO BID #56 tabs 10/10/23 venlafaxine 37.5 mg 37.5 mg PO DAILY #60 tabs 10/10/23 tablet,extended release 24 hr albuterol sulfate 90 mcg/actuation 2 puff inhalation Q6H PRN 10/19/23 aerosol inhaler shortness of breath or wheezing #8.5 grams azithromycin 250 mg tablet 250 mg PO DAILY 4 days #4 tabs 10/19/23 (Zithromax) Allergies Allergy/AdvReac Type Severity Reaction Status Date / Time codeine Allergy Intermediate pass out Verified 10/15/23 00:14 Penicillins Allergy Skin Rash Verified 10/15/23 00:14 amoxicillin AdvReac Intermediate Nausea Verified 10/15/23 00:14 dextromethorphan AdvReac Intermediate Other (See Verified 10/15/23 00:14 [From NyQuil] Comment) doxylamine [From NyQuil] AdvReac Intermediate Other (See Verified 10/15/23 00:14 Comment) pseudoephedrine [From NyQuil] AdvReac Intermediate Other (See Verified 10/15/23 00:14 Comment) General Stated Complaint: Chest Pain ADRIANA: 3 Exam Const General: cooperative and no acute distress Nutritional Appearance: well nourished Orientation: oriented x3 [facility] Head: normocephalic and atraumatic Ears: TM's normal bilaterally General nose exam: external nose normal, nares normal and no nasal discharge noted Mouth: oral mucosae normal, tongue normal and oropharynx normal Resp Effort & Inspection: normal respiratory effort Auscultation: clear to auscultation bilaterally Cardio Rate: regular rate Rhythm: regular rhythm Heart Sounds: S1 normal and S2 normal GI Inspection: normal to inspection Palpation: soft and tender Skin General skin exam: no rashes or lesions noted and turgor normal Neuro General: patient oriented x3, moves all extremities, normal light touch, pain and propioception, no focal motor deficits and CN's II-XI intact bilaterally Extrem General: full ROM and no clubbing, cyanosis or edema Course Vital Signs Vital signs: Vital Signs Temperature 37.2 C 10/19/23 00:38 Pulse 117 H 10/19/23 00:38 Respiratory Rate 16 10/19/23 00:38 Blood Pressure 143/81 H 10/19/23 00:38 Pulse Oximetry 96 10/19/23 00:38 Temperature 37.2 C 10/19/23 00:38 Temperature Source Oral 10/19/23 00:38 Pulse 117 H 10/19/23 00:38 Respiratory Rate 16 10/19/23 00:44 Respiratory Effort Normal 10/19/23 00:44 Respiratory Depth Normal 10/19/23 00:44 Respiratory Pattern Normal 10/19/23 00:44 Blood Pressure 143/81 H 10/19/23 00:38 Pulse Oximetry 96 10/19/23 00:38 Oxygen Delivery Method Room Air 10/19/23 00:38 Oxygen Flow Rate 0 10/19/23 00:38 Pain Level 5 10/19/23 00:38 Medical Decision Making The patient was seen and examined. He has normal vital signs and does not appear to be in any distress. The patient's EKG is a normal sinus rhythm with a ventricular response rate of 99 bpm. There is some scattered, nonspecific T wave flattening in scattered leads, but nothing that would be indicative of pattern injury ischemia. The patient was given a DuoNeb here in the emergency room to improve his coughing and help alleviate any sensation of chest congestion. The patient will have a chest x-ray to exclude any focal space- occupying disease process that might require more aggressive treatment. Assumi ng that the patient's chest x-ray is negative, he may benefit from oral azithromycin given that he has developed a fever at 7 days after the onset of upper respiratory tract infection symptoms. I do not anticipate the patient will require admission to the hospital for ongoing management. Quality:SDOH Health Related Social Needs: Health related social needs transpo insecurity [facility] All Active Problems (Updated 10/19/23 @ 01:56 by Bryan Ramirez MD) Chronic constipation (Acute) Epiploic appendagitis (Acute) Hypokalemia (Acute) Abdominal pain, lower (Acute) Left lower quadrant abdominal pain (Acute) Abdominal pain (Acute) Bronchitis (Acute) 10/08/2023 - Dx @ [facility] E/R Chani MORALES Bronchitis (Acute) Hypocalcemia (Acute) Heart palpitations (Acute) Ankle pain (Acute) Testicle lump (Acute) Right thigh pain (Acute) Epigastric discomfort (Acute) Hypocalcemia (Acute) Hypocalcemia (Acute) Abdominal pain, suprapubic (Acute) Hamstring tendinitis of left thigh (Acute) Pes anserine bursitis (Acute) Hypernatremia (Acute) Cervical radiculopathy (Acute) URI (upper respiratory infection) (Acute) Left-sided Flower's palsy (Acute) Neck pain on left side (Acute) Constipation (Acute) Grief reaction (Chronic) Opiate dependence, continuous (Acute) Cellulitis (Acute) Cholelithiases (Acute) 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 Possible 2' Methadone, Clnzpm (?). Surg eval (+)/No further action. History of electrolyte imbalance (Acute) Neck pain on left side (Acute) with shoulder, upper back pain.. torticollis, radiating into left hip/leg Pulmonary nodule 1 cm or greater in diameter (Chronic) Therapeutic opioid induced constipation (Acute) Sphincter of Oddi dysfunction (Chronic) Abnormal CT scan, kidney (Acute) Intrahepatic bile duct dilation (Acute) Common bile duct dilatation (Chronic) Has been dilated for quite some time, now more-so. Normal LFTs. Known gallstones. Abdominal pain (Acute) Iatrogenic hypocalcemia (Acute) Multiple endocrine neoplasia type I (Chronic) Chronic constipation (Chronic) Depression (Chronic) Hypomagnesemia (Chronic) Hypocalcemia (Chronic) Depression (Chronic) Suicidal ideation (Acute) Elevated parathyroid hormone (Acute) Family history of coronary arteriosclerosis (Chronic) Father of OR at 50, mother had OR at 42 Severe anxiety with panic (Chronic) Cellulitis (Acute) Medical History CKD (chronic kidney disease) stage 2, GFR 60-89 ml/min GFR 64-65, with Hx FLORESITA and GFR < 45 Primary hyperparathyroidism Complex medical condition Serious electrolyte imbalances, with gynecomastia, possible MEN Dx, CKD and anemia with baseline anxiety and Hx PTSD. Hypocalcemia Anxiety Depression Hyperlipidemia Family history of multiple endocrine neoplasia, type 1 PTSD (post-traumatic stress disorder) Per pt. states no triggers at this time. Surgical History H/O parathyroidectomy Family History Mother Anxiety Asthma Depression Sister Anxiety Depression Father Cancer lung & stomach Depression Diabetes Hypertension MEN 1 (multiple endocrine neoplasia) Social History Smoking/Tobacco Use Status: Never Smoking risk assessment performed?: Yes Alcohol Intake: never Drug use: Rarely Substance use type: does not use and former substance user Adopted: No Caregiver/Support person: No Foster care: No Household members: none Housing: apartment Number of Children: 0 Communication Needs: None Education Level: high school Do you need help understanding health information?: Never current occupation: [employer] Pets and animals: Yes (Ally) Pets and animals: dog(s) Sexually active: No Do you think of yourself as: straight/heterosexual Current gender identity: male What is your relationship status?: How often do you talk on the phone with friends or family?: twice per week How often do you get together with friends or relatives?: never Do you belong to any clubs or organized social groups?: no Panel score (0-1 are the most socially isolated patients): 0 What type of physical activity do you participate in: walking Duration: 15-30 minutes/day Frequency: 5-6 times per week Maryam/Rastafarian: Restoration Special maryam needs: No Seatbelt use: always Helmet use: Yes Helmet use: always Drive intox or ride w/intox special client bus 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
[2023-10-19 01:49] LABS: COVID-19 PCR Negative (Negative); Influenza A PCR Negative (Negative); Influenza B PCR Negative (Negative); RSV PCR Negative (Negative)
[2023-10-19 01:50] LABS: Source Nasopharynx
--- NOTE | 2023-10-19 01:51 | DI.VRAD_ITS ---
PROCEDURE INFORMATION: Exam: XR Chest Exam date and time: 10/19/2023 1:17 AM Age: 28 years old Clinical indication: Other: Cough, SOB; Prior surgery; Surgery date: 6+ months; Surgery type: Parathyroid cancer removed in 2020. TECHNIQUE: Imaging protocol: Radiologic exam of the chest. Views: 2 views. COMPARISON: CR XR CHEST 2V PA LATERAL 07/14/2023 8:07 AM FINDINGS: Lungs: Subtle, minimal atelectasis or infiltrate within the left lower lobe. The lungs are otherwise clear without infiltrate or edema. Pleural spaces: No pleural effusion. No pneumothorax. Heart/Mediastinum: The cardiac silhouette is normal in size. Bones/joints: No acute osseous abnormality. IMPRESSION: Minimal atelectasis or infiltrate within the left lower lobe. Dictated and Authenticated by: Kimberli Villalpando MD. Ordering:JON Adams MD
[2023-10-19] MEDS: Azithromycin 250 MG TAB 500 MG PO (02:06)
== END 2023-10-19 02:08 | disposition home or self-care (01) ==
LOC: ER 01:57
PROVIDERS: Emergency Provider Emergency Medicine Emergency Medical Services; PCP Family Medicine
DX: J40 Bronchitis, not specified as acute or chronic (principal); N18.2 Chronic kidney disease, stage 2 (mild); E78.5 Hyperlipidemia, unspecified
CPT/HCPCS: 87637; 93005; 94640; 99285; 71046; 93010; 99284; J7620

== ENCOUNTER 2023-10-27 07:54 | Emergency (ER) | payer OTHER, SELFPAY ==
[2023-10-27 08:03] VITALS: BP 132/75; PULSE 94; RESP 20; TEMP 36.7; O2SAT 98
--- NOTE | 2023-10-27 08:43 | W.ED.GENAD ---
Discharge Plan Disposition Patient Disposition: Home Condition: Stable Discharge Details Clinical Impression: Hypomagnesemia Primary Care Provider: Brendon Vivar ED Provider: Lester Bundy Home Meds and New Rx's Prescriptions: Continued gabapentin 300 mg capsule 300 mg PO BID Qty: 180 3RF cyclobenzaprine 10 mg tablet 10 mg PO TID PRN (Reason: muscle spasm) Qty: 30 3RF methadone 10 mg/5 mL solution 105 mg PO QAM calcitriol 0.5 mcg capsule 0.5 mcg PO BID Qty: 360 3RF Hold Instructions: Resume on 06/15/22. diclofenac sodium 1 % gel 4 g topical QID Qty: 100 6RF Rx Instructions: apply to single knee, ankle, foot; for foot includes sole/toes/top of foot polyethylene glycol 3350 17 gram/dose powder 17 g PO DAILY omeprazole 40 mg capsule,delayed release(DR/EC) 40 mg PO DAILY Qty: 90 3RF clonazepam 1 mg tablet 1 mg PO BID Qty: 56 0RF calcium carbonate [Tums] 200 mg calcium (500 mg) tablet,chewable 2,000 mg PO BID Hold Instructions: Resume on 05/12/23. Please hold your nightly dose tonight and your a.m. dose tomorrow morning. prochlorperazine maleate 5 mg tablet 5 mg PO TID PRN (Reason: acute nausea) Qty: 30 0RF magnesium gluconate 27 mg magnesium (500 mg) tablet 27 mg PO BID Qty: 60 3RF albuterol sulfate 90 mcg/actuation HFA aerosol inhaler 2 puff inhalation Q6H PRN (Reason: shortness of breath or wheezing) Qty: 8.5 0RF Discharge Instructions Instructions: Hypomagnesemia (ED) Additional Instructions: Please take your magnesium as prescribed. New prescription has been sent to [facility] in [place] as requested. Please contact your primary care physician to arrange follow-up. Return to the ER immediately for any worsening or new concerning symptoms. Referrals: Brendon Vivar DO [Primary Care Provider] - [facility] General Mode of arrival: ambulatory. Date/Time Provider Initiated Documentation: 10/27/23 08:16. Limitations to Documentation: no limitations. Information obtained by: patient. HPI Narrative: 28-year-old male with multiple medical problems including history of hypomagnesemia, here with chief complaint of muscle spasms, fatigue and feeling shaky. Patient woke up with symptoms this morning. Patient notes he has not been taking magnesium as prescribed. Patient is prescribed magnesium 500 mg twice daily and he is only been taking 250 mg twice daily noting the pharmacy did not have full strength and he was worried about doubling dose and running out. Patient has no chest pain or palpitations. No shortness of breath. Related Data Home Medications Medication Instructions Recorded Confirmed calcium carbonate (Tums) 2,000 mg PO BID 02/02/23 10/27/23 calcitriol 0.5 mcg capsule 0.5 mcg PO BID #360 caps 04/21/23 10/27/23 diclofenac sodium 1 % topical gel 4 g topical QID #100 grams 04/21/23 10/27/23 methadone 10 mg/5 mL oral solution 105 mg PO QAM 06/12/23 10/27/23 polyethylene glycol 3350 17 17 g PO DAILY 06/12/23 10/27/23 gram/dose oral powder gabapentin 300 mg capsule 300 mg PO BID #180 caps 06/23/23 10/27/23 omeprazole 40 mg capsule,delayed 40 mg PO DAILY #90 caps 07/21/23 10/27/23 release cyclobenzaprine 10 mg tablet 10 mg PO TID PRN muscle spasm #30 08/18/23 10/27/23 tabs prochlorperazine maleate 5 mg 5 mg PO TID PRN acute nausea #30 09/06/23 10/27/23 tablet tabs clonazepam 1 mg tablet 1 mg PO BID #56 tabs 10/10/23 10/27/23 albuterol sulfate 90 mcg/actuation 2 puff inhalation Q6H PRN 10/19/23 10/27/23 aerosol inhaler shortness of breath or wheezing #8.5 grams magnesium gluconate 27 mg 27 mg PO BID #60 tabs 10/27/23 magnesium (500 mg) tablet Previous Rx's Medication Instructions Recorded calcitriol 0.5 mcg capsule 0.5 mcg PO BID #360 caps 04/21/23 diclofenac sodium 1 % topical gel 4 g topical QID #100 grams 04/21/23 gabapentin 300 mg capsule 300 mg PO BID #180 caps 06/23/23 omeprazole 40 mg capsule,delayed 40 mg PO DAILY #90 caps 07/21/23 release cyclobenzaprine 10 mg tablet 10 mg PO TID PRN muscle spasm #30 08/18/23 tabs prochlorperazine maleate 5 mg 5 mg PO TID PRN acute nausea #30 09/06/23 tablet tabs clonazepam 1 mg tablet 1 mg PO BID #56 tabs 10/10/23 albuterol sulfate 90 mcg/actuation 2 puff inhalation Q6H PRN 10/19/23 aerosol inhaler shortness of breath or wheezing #8.5 grams magnesium gluconate 27 mg 27 mg PO BID #60 tabs 10/27/23 magnesium (500 mg) tablet Allergies Allergy/AdvReac Type Severity Reaction Status Date / Time codeine Allergy Intermediate pass out Verified 10/27/23 08:06 Penicillins Allergy Skin Rash Verified 10/27/23 08:06 amoxicillin AdvReac Intermediate Nausea Verified 10/27/23 08:06 dextromethorphan AdvReac Intermediate Other (See Verified 10/27/23 08:06 [From NyQuil] Comment) doxylamine [From NyQuil] AdvReac Intermediate Other (See Verified 10/27/23 08:06 Comment) pseudoephedrine [From NyQuil] AdvReac Intermediate Other (See Verified 10/27/23 08:06 Comment) General Stated Complaint: GenMedical ADRIANA: 3 Review of Systems Narrative: As per HPI Exam Const General: cooperative and no acute distress HENMT Mouth: moist mucous membranes Resp Auscultation: clear to auscultation bilaterally, no rales, no rhonchi and no wheezes Cardio Rate: regular rate and not tachycardic Rhythm: regular rhythm Neuro General: patient alert, patient awake and tone normal Cognition: normal cognition Speech: speech normal Motor: no fasciculations, no tremors, No asterixis and other (No spasm) Course Vital Signs Vital signs: Vital Signs Temperature 36.7 C 10/27/23 08:03 Pulse 94 H 10/27/23 08:03 Respiratory Rate 20 10/27/23 08:03 Blood Pressure 132/75 10/27/23 08:03 Pulse Oximetry 98 10/27/23 08:03 Temperature 36.7 C 10/27/23 08:03 Temperature Source Skin 10/27/23 08:03 Pulse 94 H 10/27/23 08:03 Respiratory Rate 20 10/27/23 08:03 Respiratory Effort Normal, Non-Labored 10/27/23 08:08 Blood Pressure 132/75 10/27/23 08:03 Blood Pressure Position Sitting 10/27/23 08:03 Pulse Oximetry 98 10/27/23 08:03 Oxygen Delivery Method Room Air 10/27/23 08:03 Oxygen Flow Rate 0 10/27/23 08:03 Pain Level 4 10/27/23 08:03 Medical Decision Making 28-year-old male with multiple medical problems including history of hypomagnesemia, here with fatigue and muscle spasms this morning, noncompliant with magnesium supplementation. No tremor, tetany or convulsions. Patient ambulating without any dysfunction with full strength. Labs reviewed and glucose normal. Magnesium is slightly low at 1.6. Patient was given magnesium oxide 800 mg oral dose. Plan for discharge with outpatient follow-up. I have sent another prescription for magnesium 500 mg to a different pharmacy as requested by the patient. Patient was encouraged to take medication as prescribed. Quality:[facility] Health Related Social Needs: Health related social needs transpo insecurity [facility] All Active Problems (Updated 10/27/23 @ 09:16 by Lester Bundy MD) Hypomagnesemia (Acute) Chronic constipation (Acute) Epiploic appendagitis (Acute) Hypokalemia (Acute) Abdominal pain, lower (Acute) Left lower quadrant abdominal pain (Acute) Abdominal pain (Acute) Bronchitis (Acute) 10/08/2023 - Dx @ [facility] E/R Chani MORALES Bronchitis (Acute) Hypocalcemia (Acute) Heart palpitations (Acute) Ankle pain (Acute) Testicle lump (Acute) Right thigh pain (Acute) Epigastric discomfort (Acute) Hamstring tendinitis of left thigh (Acute) Pes anserine bursitis (Acute) Hypernatremia (Acute) Cervical radiculopathy (Acute) URI (upper respiratory infection) (Acute) Left-sided Flower's palsy (Acute) Neck pain on left side (Acute) Constipation (Acute) Grief reaction (Chronic) Opiate dependence, continuous (Acute) Cellulitis (Acute) Cholelithiases (Acute) 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 ED Left arm numbness (Acute) Gynecomastia, male (Acute) b/l, per CT (Jul 2022).. Possible 2' Methadone, Clnzpm (?). Surg eval (+)/No further action. History of electrolyte imbalance (Acute) Neck pain on left side (Acute) with shoulder, upper back pain.. torticollis, radiating into left hip/leg Pulmonary nodule 1 cm or greater in diameter (Chronic) Therapeutic opioid induced constipation (Acute) Sphincter of Oddi dysfunction (Chronic) Abnormal CT scan, kidney (Acute) Intrahepatic bile duct dilation (Acute) Common bile duct dilatation (Chronic) Has been dilated for quite some time, now more-so. Normal LFTs. Known gallstones. Abdominal pain (Acute) Iatrogenic hypocalcemia (Acute) Multiple endocrine neoplasia type I (Chronic) Chronic constipation (Chronic) Depression (Chronic) Hypomagnesemia (Chronic) Hypocalcemia (Chronic) Depression (Chronic) Suicidal ideation (Acute) Elevated parathyroid hormone (Acute) Family history of coronary arteriosclerosis (Chronic) Father of ME at 50, mother had ME at 42 Severe anxiety with panic (Chronic) Cellulitis (Acute) Medical History CKD (chronic kidney disease) stage 2, GFR 60-89 ml/min GFR 64-65, with Hx FLORESITA and GFR < 45 Primary hyperparathyroidism Complex medical condition Serious electrolyte imbalances, with gynecomastia, possible MEN Dx, CKD and anemia with baseline anxiety and Hx PTSD. Hypocalcemia Anxiety Depression Hyperlipidemia Family history of multiple endocrine neoplasia, type 1 PTSD (post-traumatic stress disorder) Per pt. states no triggers at this time. Surgical History H/O parathyroidectomy Family History Mother Anxiety Asthma Depression Sister Anxiety Depression Father Cancer lung & stomach Depression Diabetes Hypertension MEN 1 (multiple endocrine neoplasia) Social History Smoking/Tobacco Use Status: Never Smoking risk assessment performed?: Yes Alcohol Intake: never Drug use: Rarely Substance use type: does not use and former substance user Adopted: No Caregiver/Support person: No Foster care: No Household members: none Housing: apartment Number of Children: 0 Communication Needs: None Education Level: high school Do you need help understanding health information?: Never current occupation: [employer] Pets and animals: Yes (Ally) Pets and animals: dog(s) Sexually active: No Do you think of yourself as: straight/heterosexual Current gender identity: male What is your relationship status?: How often do you talk on the phone with friends or family?: twice per week How often do you get together with friends or relatives?: never Do you belong to any clubs or organized social groups?: no Panel score (0-1 are the most socially isolated patients): 0 What type of physical activity do you participate in: walking Duration: 15-30 minutes/day Frequency: 5-6 times per week Maryam/Zoroastrianism: Evangelical Special maryam needs: No Seatbelt use: always Helmet use: Yes Helmet use: always Drive intox or ride w/intox seasonal 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
[2023-10-27 08:56] LABS: Magnesium 1.6 mg/dL (1.8-2.4)
[2023-10-27] MEDS: Magnesium Oxide 400 MG TAB 800 MG PO (09:20)
== END 2023-10-27 09:23 | disposition home or self-care (01) ==
PROVIDERS: Emergency Provider Student in an Organized Health Care Education/Training Program; PCP Family Medicine
DX: M62.838 Other muscle spasm (principal); R53.81 Other malaise; E83.42 Hypomagnesemia; Z91.128 Patient's intentional underdosing of medication regimen for other reason
CPT/HCPCS: 36415; 36416; 82962; 99283; 83735

== ENCOUNTER 2023-10-29 00:05 | Emergency (ER) | payer OTHER, SELFPAY ==
[2023-10-29] VITALS (35 sets, daily range): BP systolic 102–131; BP diastolic 54–77; PULSE 59–91; RESP 9–19; TEMP 36.6–36.8; O2SAT 98–100
--- NOTE | 2023-10-29 | RT.EKG_ITS ---
APPROVED REPORT Exam: Resting ECG Reason for Exam: rapid heart rate Patient Location: E HR:94 bpm ECG Measurements Heart Rate 94 AXIS VA 171 P 56 QRSd 99 QRS 43 QT 378 T 38 QTc 473 Conclusion Sinus rhythm...normal P axis, V-rate 60- 99 Physician: no stemi
[2023-10-29 00:27] LABS: Abs Immature Grans 0.02 10^3/uL (0.0-0.06); Absolute Basophil Count 0.03 10^3/uL (0.0-0.2); Absolute Eosinophil Count 0.16 10^3/uL (0.0-0.7); Absolute Lymphocyte Count 2.27 10^3/uL (1.2-3.4); Absolute Monocyte Count 0.88 10^3/uL (0.1-0.8); Absolute Neutrophil Count 3.96 10^3/uL (1.2-6.7); Basophils % 0.4 %; Eosinophils % 2.2 %; HCT 35.6 % (40.0-50.0); HGB 11.7 g/dL (13.5-17.5); Immature Grans % 0.3 %; MCH 29.3 pg (27.0-33.0); MCHC 32.9 % (32.0-36.0); MCV 89 fL (80-95); MPV 10.6 fL (8.0-11.0); Neutrophils % 54.1 %; Platelet Count 296 10^3/uL (130-400); RDW 12.8 % (11.8-14.1); WBC 7.32 10^3/uL (4.4-10.8)
[2023-10-29] MEDS: Lactated Ringers 1,000 ML 1000 ML IV (00:30)
--- NOTE | 2023-10-29 00:48 | ED.GENADUL_ITS ---
Discharge Plan Disposition Patient Disposition: Home Condition: Good Discharge Details Clinical Impression: Chest discomfort, Hypomagnesemia, Hypocalcemia Primary Care Provider: Brendon Vivar ED Provider: Richy Eagle Home Meds and New Rx's Prescriptions: No Action gabapentin 300 mg capsule 300 mg PO BID Qty: 180 3RF cyclobenzaprine 10 mg tablet 10 mg PO TID PRN (Reason: muscle spasm) Qty: 30 3RF methadone 10 mg/5 mL solution 105 mg PO QAM calcitriol 0.5 mcg capsule 0.5 mcg PO BID Qty: 360 3RF Hold Instructions: Resume on 06/15/22. diclofenac sodium 1 % gel 4 g topical QID Qty: 100 6RF Rx Instructions: apply to single knee, ankle, foot; for foot includes sole/toes/top of foot polyethylene glycol 3350 17 gram/dose powder 17 g PO DAILY omeprazole 40 mg capsule,delayed release(DR/EC) 40 mg PO DAILY Qty: 90 3RF clonazepam 1 mg tablet 1 mg PO BID Qty: 56 0RF calcium carbonate [Tums] 200 mg calcium (500 mg) tablet,chewable 2,000 mg PO BID Hold Instructions: Resume on 05/12/23. Please hold your nightly dose tonight and your a.m. dose tomorrow morning. prochlorperazine maleate 5 mg tablet 5 mg PO TID PRN (Reason: acute nausea) Qty: 30 0RF magnesium gluconate 27 mg magnesium (500 mg) tablet 27 mg PO BID Qty: 60 3RF albuterol sulfate 90 mcg/actuation HFA aerosol inhaler 2 puff inhalation Q6H PRN (Reason: shortness of breath or wheezing) Qty: 8.5 0RF Discharge Instructions Instructions: Hypomagnesemia (ED) Additional Instructions: At this time your laboratory workup has returned stable. There is no signs of heart attack, blood clots, or other significant abnormality. Your magnesium was slightly low at 1.7. This has been corrected. You were dehydrated as well. Please continue taking your home supplements, if you notice any worsening of your symptoms, or any new symptoms such as vomiting, diarrhea, fever, chills, shortness of breath, chest pain, numbness, weakness, or fainting , please return immediately to the emergency department for reevaluation. Please follow up with your primary care provider as soon as possible for reassessment and reeva luation. As always, it was a pleasure participating in your medical care today. Referrals: Brendon Vivar DO [Primary Care Provider] - [facility] General Date/Time Provider Initiated Documentation: 10/29/23 00:18 . HPI Narrative: This is a 27-year-old male with a past medical history significant for anxiety, depression, high cholesterol, men type I, multiple electrolyte abnormalities with subsequent parathyroidectomy on 03/26/2022 at [facility], PTSD, GERD who presents for evaluation of chest discomfort. Patient states that this morning when he woke up he felt a tightness in his chest, he attributed this to anxiety, and went throughout his stay. He continued and he describes it as feeling like he is being hugged around the chest. No pleuritic symptoms. No severe pain. No vomiting but he has had nausea. He took a nap later today and when he woke up the symptoms were still there, because that he elected to come in for evaluation. He states he has been taking all of his medications as prescribed, however just yesterday he did switch to a new magnesium supplement. It is same supplement, just a different brand. He is unable to specify which brand specifically now though. He denies any other complaints. No other modifying factors. Related Data Home Medications Medication Instructions Recorded Confirmed calcium carbonate (Tums) 2,000 mg PO BID 02/02/23 10/29/23 calcitriol 0.5 mcg capsule 0.5 mcg PO BID #360 caps 04/21/23 10/29/23 diclofenac sodium 1 % topical gel 4 g topical QID #100 grams 04/21/23 10/29/23 methadone 10 mg/5 mL oral solution 105 mg PO QAM 06/12/23 10/29/23 polyethylene glycol 3350 17 17 g PO DAILY 06/12/23 10/29/23 gram/dose oral powder gabapentin 300 mg capsule 300 mg PO BID #180 caps 06/23/23 10/29/23 omeprazole 40 mg capsule,delayed 40 mg PO DAILY #90 caps 07/21/23 10/29/23 release cyclobenzaprine 10 mg tablet 10 mg PO TID PRN muscle spasm #30 08/18/23 10/29/23 tabs prochlorperazine maleate 5 mg 5 mg PO TID PRN acute nausea #30 09/06/23 10/29/23 tablet tabs clonazepam 1 mg tablet 1 mg PO BID #56 tabs 10/10/23 10/29/23 albuterol sulfate 90 mcg/actuation 2 puff inhalation Q6H PRN 10/19/23 10/29/23 aerosol inhaler shortness of breath or wheezing #8.5 grams magnesium gluconate 27 mg 27 mg PO BID #60 tabs 10/27/23 10/29/23 magnesium (500 mg) tablet Previous Rx's Medication Instructions Recorded calcitriol 0.5 mcg capsule 0.5 mcg PO BID #360 caps 04/21/23 diclofenac sodium 1 % topical gel 4 g topical QID #100 grams 04/21/23 gabapentin 300 mg capsule 300 mg PO BID #180 caps 06/23/23 omeprazole 40 mg capsule,delayed 40 mg PO DAILY #90 caps 07/21/23 release cyclobenzaprine 10 mg tablet 10 mg PO TID PRN muscle spasm #30 08/18/23 tabs prochlorperazine maleate 5 mg 5 mg PO TID PRN acute nausea #30 09/06/23 tablet tabs clonazepam 1 mg tablet 1 mg PO BID #56 tabs 10/10/23 albuterol sulfate 90 mcg/actuation 2 puff inhalation Q6H PRN 10/19/23 aerosol inhaler shortness of breath or wheezing #8.5 grams magnesium gluconate 27 mg 27 mg PO BID #60 tabs 10/27/23 magnesium (500 mg) tablet Allergies Allergy/AdvReac Type Severity Reaction Status Date / Time codeine Allergy Intermediate pass out Verified 10/29/23 00:13 Penicillins Allergy Skin Rash Verified 10/29/23 00:13 amoxicillin AdvReac Intermediate Nausea Verified 10/29/23 00:13 dextromethorphan AdvReac Intermediate Other (See Verified 10/29/23 00:13 [From NyQuil] Comment) doxylamine [From NyQuil] AdvReac Intermediate Other (See Verified 10/29/23 00:13 Comment) pseudoephedrine [From NyQuil] AdvReac Intermediate Other (See Verified 10/29/23 00:13 Comment) General Stated Complaint: GenMedical ADRIANA: 3 Review of Systems All systems reviewed & are unremarkable except as noted in HPI and below Exam Narrative Exam Narrative: 1.Const: Well-nourished, Well-developed, appearing stated age 2.Eyes: PERRL, no conjunctival injection, and symmetrical lids. 3.ENT: Atraumatic external nose and ears. Moist MM. Neck: Symmetric, trachea midline, No thyromegaly. 4.CVS: +S1/S2, No murmurs or gallops. Peripheral pulses 2+ and equal in all extremities. Brisk capillary refill in all extremities. 5.RESP: Unlabored respiratory effort. Clear to auscultation bilaterally. No wheezes rales or rhonchi 6.GI: Soft, Nontender/Nondistended, No hepatosplenomegaly. No guarding or rebound. 7.MSK: Normocephalic/Atraumatic, Extremities w/o deformity or ttp No cyanosis or clubbing, Normal movement of all extremities 8.Skin: Warm, Dry. Patient does have a slightly blotchy rash/superficial skin global director air and climate change the right face and right neck. It is blanching. With slight vascular pallor and splotchy areas and other areas that are slightly erythematous. No warmth though. No vesicles. No edema or hives. No lesions on the back or chest. 9.Neuro: clinical support manager II-XII grossly intact. Sensation grossly intact, no focal neurologic deficits. 10.Psych: (AAO) x3. Appropriate mood and affect Course Vital Signs Vital signs: Vital Signs Temperature 36.6 C 10/29/23 00:09 Pulse 90 10/29/23 00:09 Respiratory Rate 14 10/29/23 00:09 Blood Pressure 131/68 10/29/23 00:09 Pulse Oximetry 100 10/29/23 00:09 Temperature 36.6 C 10/29/23 00:09 Pulse 90 10/29/23 00:09 Respiratory Rate 14 10/29/23 00:09 Respiratory Effort Normal 10/29/23 00:15 Respiratory Depth Normal 10/29/23 00:15 Blood Pressure 131/68 10/29/23 00:09 Pulse Oximetry 100 10/29/23 00:09 Oxygen Delivery Method Room Air 10/29/23 00:09 Oxygen Flow Rate 0 10/29/23 00:09 Pain Level 0 10/29/23 00:09 Lab/Test Results Lab/Test Results: Laboratory Tests Range/Units 10/29/23 00:18 WBC (4.4-10.8) 10^3/uL 7.32 RBC (4.36-5.78) 10^6/uL 4.00 L Hgb (13.5-17.5) g/dL 11.7 L Hct (40.0-50.0) % 35.6 L MCV (80-95) fL 89 MCH (27.0-33.0) pg 29.3 MCHC (32.0-36.0) % 32.9 RDW (11.8-14.1) % 12.8 Plt Count (130-400) 10^3/uL 296 MPV (8.0-11.0) fL 10.6 Immature Gran % % 0.3 Neutrophils % % 54.1 Lymphocytes % % 31.0 Monocytes % % 12.0 Eosinophils % % 2.2 Basophils % % 0.4 Nucleated RBC % (0.0-0.3) % 0.0 Absolute Neutrophils (1.2-6.7) 10^3/uL 3.96 Absolute Lymphocytes (1.2-3.4) 10^3/uL 2.27 Absolute Monocytes (0.1-0.8) 10^3/uL 0.88 H Absolute Eosinophils (0.0-0.7) 10^3/uL 0.16 Absolute Basophils (0.0-0.2) 10^3/uL 0.03 Medical Decision Making This is a 27-year-old male with a past medical history significant for anxiety, depression, high cholesterol, men type I, multiple electrolyte a bnormalities with subsequent parathyroidectomy on 03/26/2022 at [facility], PTSD, GERD who presents for evaluation of chest discomfort. Patient states that this morning when he woke up he felt a tightness in his chest, he attributed this to anxiety, and went throughout his stay. He continued and he describes it as feeling like he is being hugged around the chest. No pleuritic symptoms. No severe pain. No vomiting but he has had nausea. He took a nap later today and when he woke up the symptoms were still there, because that he elected to come in for evaluation. He states he has been taking all of his medications as prescribed, however just yesterday he did switch to a new magnesium supplement. It is same supplement, just a different brand. He is unable to specify which brand specifically now though. He denies any other complaints. No other modifying factors. Exam demonstrates well-appearing male, EKG benign. Vital signs stable. The only physical exam abnormality is a slight blotchiness on his skin on the right face and neck. No extension of rash anywhere else. Differential includes anxiety, electrolyte abnormality, less likely allergic reaction. Symptoms appear inconsistent with anaphylaxis. Esophageal spasm, PE, or cardiac etiology are also of concern. Will evaluate for these etiologies, monitor closely and reassess. EKG shows no evidence of STEMI. 2 AM Laboratory workup has returned, D-dimer normal, troponin normal, no white count. Patient's magnesium and calcium are slightly low. These have been corrected with 2 g of IV magnesium and 1 amp of calcium. On reassessment after fluids and GI cocktail patient has complete resolution of his symptoms. EKG normal. Symptoms inconsistent with ACS or PE. Symptoms inconsistent clinically with dissection. Patient feels well and would like to go home. Patient stable for discharge. Recommend continued hydration Maalox as needed at home, and continued supplement use. Discussed red flags for which to return. I have extensively reviewed the treatment plan and discharge instructions with the patient. I have addressed all patient concerns at this time. The patient was made aware of what symptoms to monitor for that would warrant a return to the emergency department. Discussed the plan with the patient, they demonstrate verbal understanding and agreement with our assessment and plan at this time. The documentation in this chart was dictated using [employer] dictation software. Please excuse any dictation errors. Quality:SDOH Health Related Social Needs: Health related social needs transpo insecurity [facility] All Active Problems (Updated 10/29/23 @ 02:14 by Richy Eagle DO) Hypocalcemia (Acute) Hypomagnesemia (Acute) Chest discomfort (Acute) Hypomagnesemia (Acute) Chronic constipation (Acute) Epiploic appendagitis (Acute) Hypokalemia (Acute) Abdominal pain, lower (Acute) Left lower quadrant abdominal pain (Acute) Abdominal pain (Acute) Bronchitis (Acute) 10/08/2023 - Dx @ [facility] E/R Chani MORALES Bronchitis (Acute) Hypocalcemia (Acute) Heart palpitations (Acute) Ankle pain (Acute) Testicle lump (Acute) Right thigh pain (Acute) Hamstring tendinitis of left thigh (Acute) Pes anserine bursitis (Acute) Hypernatremia (Acute) Cervical radiculopathy (Acute) URI (upper respiratory infection) (Acute) Left-sided Flower's palsy (Acute) Neck pain on left side (Acute) Constipation (Acute) Grief reaction (Chronic) Opiate dependence, continuous (Acute) Cellulitis (Acute) Cholelithiases (Acute) 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 Possible 2' Methadone, Clnzpm (?). Surg eval (+)/No further action. History of electrolyte imbalance (Acute) Neck pain on left side (Acute) with shoulder, upper back pain.. torticollis, radiating into left hip/leg Pulmonary nodule 1 cm or greater in diameter (Chronic) Therapeutic opioid induced constipation (Acute) Sphincter of Oddi dysfunction (Chronic) Abnormal CT scan, kidney (Acute) Intrahepatic bile duct dilation (Acute) Common bile duct dilatation (Chronic) Has been dilated for quite some time, now more-so. Normal LFTs. Known gallstones. Abdominal pain (Acute) Iatrogenic hypocalcemia (Acute) Multiple endocrine neoplasia type I (Chronic) Chronic constipation (Chronic) Depression (Chronic) Hypomagnesemia (Chronic) Hypocalcemia (Chronic) Depression (Chronic) Suicidal ideation (Acute) Elevated parathyroid hormone (Acute) Family history of coronary arteriosclerosis (Chronic) Father of MT at 50, mother had MT at 42 Severe anxiety with panic (Chronic) Cellulitis (Acute) Medical History CKD (chronic kidney disease) stage 2, GFR 60-89 ml/min GFR 64-65, with Hx FLORESITA and GFR < 45 Primary hyperparathyroidism Complex medical condition Serious electrolyte imbalances, with gynecomastia, possible MEN Dx, CKD and anemia with baseline anxiety and Hx PTSD. Hypocalcemia Anxiety Depression Hyperlipidemia Family history of multiple endocrine neoplasia, type 1 PTSD (post-traumatic stress disorder) Per pt. states no triggers at this time. Surgical History H/O parathyroidectomy Family History Mother Anxiety Asthma Depression Sister Anxiety Depression Father Cancer lung & stomach Depression Diabetes Hypertension MEN 1 (multiple endocrine neoplasia) Social History Smoking/Tobacco Use Status: Never Smoking risk assessment performed?: Yes Alcohol Intake: never Drug use: Rarely Substance use type: does not use and former substance user Adopted: No Caregiver/Support person: No Foster care: No Household members: none Housing: apartment Number of Children: 0 Communication Needs: None Education Level: high school Do you need help understanding health information?: Never 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[employer] Pets and animals: Yes (Ally) Pets and animals: dog(s) Sexually active: No Do you think of yourself as: straight/heterosexual Current gender identity: male What is your relationship status?: How often do you talk on the phone with friends or family?: twice per week How often do you get together with friends or relatives?: never Do you belong to any clubs or organized social groups?: no Panel score (0-1 are the most socially isolated patients): 0 What type of physical activity do you participate in: walking Duration: 15-30 minutes/day Frequency: 5-6 times per week Maryam/Gnosticism: Congregational Special maryam needs: No Seatbelt use: always Helmet use: Yes Helmet use: always Drive intox or ride w/intox transit bus 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
[2023-10-29 00:52] LABS: ALT 55 U/L (16-63); AST 38 U/L (15-37); Albumin 3.1 g/dL (3.4-5.0); Alkaline Phosphatase 131 U/L (46-116); Anion Gap 4.2 mmol/L (3-11); BUN 19 mg/dL (7-18); Bilirubin, Total 0.2 mg/dL (0.2-1.0); CO2 32.8 mmol/L (21.0-32.0); CREATININE 1.3 mg/dL (0.70-1.30); Calcium 8.3 mg/dL (8.5-10.1); Chloride 102 mmol/L (98-107); Estimated GFR 75.79 (mL/min/1.73m2); Glucose 104 mg/dL (74-106); Magnesium 1.7 mg/dL (1.8-2.4); Potassium 3.7 mmol/L (3.5-5.1); Sodium 139 mmol/L (136-145); TSH (W/Ref FT4) 3.56 uIU/mL (0.36-3.74); Total Protein 7.4 g/dL (6.4-8.2)
[2023-10-29 00:54] LABS: Troponin I < 50 ng/L (< or =60)
[2023-10-29] MEDS: MAGNESIUM SULFATE 2 GM/50 ML BAG IVINF (01:07)
[2023-10-29 01:20] LABS: D-Dimer 317 ng/mlFEU (<500)
[2023-10-29] MEDS: Calcium Gluconate 4.65 MEQ/10 ML VIAL 4.65 MG IVP (02:24)
[2023-10-29] MEDS: Normal Saline 50 ML 200 ML (02:29)
== END 2023-10-29 03:09 | disposition home or self-care (01) ==
PROVIDERS: Emergency Provider Student in an Organized Health Care Education/Training Program; PCP Family Medicine
DX: E83.42 Hypomagnesemia (principal); E83.51 Hypocalcemia; F41.9 Anxiety disorder, unspecified; E89.2 Postprocedural hypoparathyroidism; E78.5 Hyperlipidemia, unspecified; N18.2 Chronic kidney disease, stage 2 (mild)
CPT/HCPCS: 36415; 80053; 93005; 96361; 96374; 99284; 83735; 84443; 84484; 85025; 85379; 93010; J0612; J3475

== ENCOUNTER 2023-10-30 14:15 | Emergency (ER) | payer OTHER, SELFPAY ==
[2023-10-30 14:18] VITALS: BP 154/94; PULSE 96; RESP 24; TEMP 37.1; O2SAT 96
[2023-10-30 14:21] VITALS: BP 154/94; PULSE 96; RESP 24; TEMP 37.1; O2SAT 96
--- NOTE | 2023-10-30 14:39 | ED.GENADUL_ITS ---
Discharge Plan Disposition Patient Disposition: Home Condition: Good Discharge Details Clinical Impression: Abdominal bloating, Nausea Primary Care Provider: Brendon Vivar ED Provider: Santiago Ibarra Allyn Meds and New Rx's Prescriptions: New ondansetron 4 mg tablet,disintegrating 4 mg PO Q8H PRN (Reason: nausea and vomiting) Qty: 20 0RF simethicone 125 mg tablet,chewable 125 mg PO QID PRN (Reason: abdominal distention) Qty: 20 0RF Continued gabapentin 300 mg capsule 300 mg PO BID Qty: 180 3RF cyclobenzaprine 10 mg tablet 10 mg PO TID PRN (Reason: muscle spasm) Qty: 30 3RF methadone 10 mg/5 mL solution 105 mg PO QAM calcitriol 0.5 mcg capsule 0.5 mcg PO BID Qty: 360 3RF Hold Instructions: Resume on 06/15/22. diclofenac sodium 1 % gel 4 g topical QID Qty: 100 6RF Rx Instructions: apply to single knee, ankle, foot; for foot includes sole/toes/top of foot polyethylene glycol 3350 17 gram/dose powder 17 g PO DAILY omeprazole 40 mg capsule,delayed release(DR/EC) 40 mg PO DAILY Qty: 90 3RF clonazepam 1 mg tablet 1 mg PO BID Qty: 56 0RF calcium carbonate [Tums] 200 mg calcium (500 mg) tablet,chewable 2,000 mg PO BID Hold Instructions: Resume on 05/12/23. Please hold your nightly dose tonight and your a.m. dose tomorrow morning. prochlorperazine maleate 5 mg tablet 5 mg PO TID PRN (Reason: acute nausea) Qty: 30 0RF magnesium gluconate 27 mg magnesium (500 mg) tablet 27 mg PO BID Qty: 60 3RF Discharge Instructions Additional Instructions: You were seen for nausea and abdominal bloating especially after eating. Your exam and laboratory studies are reassuring. You should continue the prescribed omeprazole 40 mg daily. You may use prochlorperazine or ondansetron for nausea. Trial simethicone 4 times a day for the bloating. Follow-up with primary care in the next 1 to 2 weeks for recheck. Return to ED for any new or worsening abdominal pain, fever, persistent vomiting especially if bloody or coffee-ground in nature. Referrals: Myrter,Brendon, DO [Primary Care Provider] - [facility] General Mode of arrival: ambulatory . Date/Time Provider Initiated Documentation: 10/30/23 14:21 . Limitations to Documentation: no limitations . Information obtained by: patient . HPI Narrative: Patient presents to ED with complaint of general malaise, fatigue, abdominal bloating, mild upper abdominal pain, nausea. Most of his GI symptoms are worse after eating. He is due for cholecystectomy in about a month. He is also on omeprazole daily and has prochlorperazine at home which he has been using. Still feels that meds are working and that he just feels bad after eating. Denies any fever, chest pain, shortness of breath. Has a slight dry cough. No vomiting or diarrhea. Related Data Home Medications Medication Instructions Recorded Confirmed calcium carbonate (Tums) 2,000 mg PO BID 02/02/23 10/30/23 calcitriol 0.5 mcg capsule 0.5 mcg PO BID #360 caps 04/21/23 10/30/23 diclofenac sodium 1 % topical gel 4 g topical QID #100 grams 04/21/23 10/30/23 methadone 10 mg/5 mL oral solution 105 mg PO QAM 06/12/23 10/30/23 polyethylene glycol 3350 17 17 g PO DAILY 06/12/23 10/30/23 gram/dose oral powder gabapentin 300 mg capsule 300 mg PO BID #180 caps 06/23/23 10/30/23 omeprazole 40 mg capsule,delayed 40 mg PO DAILY #90 caps 07/21/23 10/30/23 release cyclobenzaprine 10 mg tablet 10 mg PO TID PRN muscle spasm #30 08/18/23 10/30/23 tabs prochlorperazine maleate 5 mg 5 mg PO TID PRN acute nausea #30 09/06/23 10/30/23 tablet tabs clonazepam 1 mg tablet 1 mg PO BID #56 tabs 10/10/23 10/30/23 magnesium gluconate 27 mg 27 mg PO BID #60 tabs 10/27/23 10/30/23 magnesium (500 mg) tablet ondansetron 4 mg disintegrating 4 mg PO Q8H PRN nausea and 10/30/23 tablet vomiting #20 tabs simethicone 125 mg chewable tablet 125 mg PO QID PRN abdominal 10/30/23 distention #20 tabs Previous Rx's Medication Instructions Recorded calcitriol 0.5 mcg capsule 0.5 mcg PO BID #360 caps 04/21/23 diclofenac sodium 1 % topical gel 4 g topical QID #100 grams 04/21/23 gabapentin 300 mg capsule 300 mg PO BID #180 caps 06/23/23 omeprazole 40 mg capsule,delayed 40 mg PO DAILY #90 caps 07/21/23 release cyclobenzaprine 10 mg tablet 10 mg PO TID PRN muscle spasm #30 08/18/23 tabs prochlorperazine maleate 5 mg 5 mg PO TID PRN acute nausea #30 09/06/23 tablet tabs clonazepam 1 mg tablet 1 mg PO BID #56 tabs 10/10/23 magnesium gluconate 27 mg 27 mg PO BID #60 tabs 10/27/23 magnesium (500 mg) tablet ondansetron 4 mg disintegrating 4 mg PO Q8H PRN nausea and 10/30/23 tablet vomiting #20 tabs simethicone 125 mg chewable tablet 125 mg PO QID PRN abdominal 10/30/23 distention #20 tabs Allergies Allergy/AdvReac Type Severity Reaction Status Date / Time codeine Allergy Intermediate pass out Verified 10/30/23 16:17 Penicillins Allergy Skin Rash Verified 10/30/23 16:17 amoxicillin AdvReac Intermediate Nausea Verified 10/30/23 16:17 dextromethorphan AdvReac Intermediate Other (See Verified 10/30/23 16:17 [From NyQuil] Comment) doxylamine [From NyQuil] AdvReac Intermediate Other (See Verified 10/30/23 16:17 Comment) pseudoephedrine [From NyQuil] AdvReac Intermediate Other (See Verified 10/30/23 16:17 Comment) General Stated Complaint: [employer] ADRIANA: 3 Review of Systems Narrative: Per HPI Exam Narrative Exam Narrative: Const: WDWN male in NAD. VS per triage. HEENT: NC/AT. Normal facial exam. Eyes: Normal conjunctiva and sclera. Neck: Supple. Trachea midline. Lungs: Normal respiratory effort. Lungs are clear. Cor: RRR without murmur. Good radial pulses. GI: Soft. NT/ND. No guarding or rebound. Neuro: A+O x 3. Normal speech, mentation, gait. Cranial nerves II - XII grossly intact. No gross motor or sensory deficit. Ext: No C/C/E. Skin: Warm and dry without rash. Course Vital Signs Vital signs: Vital Signs Temperature 98.7 F 10/30/23 14:18 Pulse 96 H 10/30/23 14:18 Respiratory Rate 24 10/30/23 14:18 Blood Pressure 154/94 H 10/30/23 14:18 Pulse Oximetry 96 10/30/23 14:18 Temperature 98.7 F 10/30/23 14:21 Temperature Source Temporal Artery Scan 10/30/23 14:21 Pulse 96 H 10/30/23 14:21 Respiratory Rate 24 10/30/23 14:21 Respiratory Effort Normal 10/30/23 14:21 Respiratory Depth Normal 10/30/23 14:21 Respiratory Pattern Normal 10/30/23 14:21 Blood Pressure 154/94 H 10/30/23 14:21 Blood Pressure Position Sitting 10/30/23 14:21 Pulse Oximetry 96 10/30/23 14:21 Oxygen Delivery Method Room Air 10/30/23 14:21 Oxygen Flow Rate 0 10/30/23 14:21 Medical Decision Making Patient presenting to ED with complaint of GI symptoms likely related to reflux/acid related disease. Feels bloated and nauseated with some epigastric discomfort after eating, more so than he has in the past. Does have known cholelithiasis and is pending a cholecystectomy in the coming month. Exam unremarkable at this time. Denies nausea but still feels bloated and uncomfort able. Does have history of electrolyte abnormalities. Last here in the ED on the and with complaints related to electrolytes. Doubt that this is related to his cholelithiasis and currently has a benign abdomen. Will place an IV, check belly labs, hydrate and give dose of simethicone. Patient's laboratory studies remain baseline. Corrected calcium within normal range. Will trial ondansetron and simethicone, continue omeprazole and have follow-up with primary care. Return precautions provided. Medical Records Medical records reviewed: Yes I reviewed the patient's medical records. Medical records narrative: Multiple ED visits Lab Data Lab results reviewed: Yes I reviewed the patient's lab results. Lab results narrative: See [facility] All Active Problems (Updated 10/30/23 @ 16:25 by Santiago Ibarra MD) Nausea (Acute) Abdominal bloating (Acute) Hypocalcemia (Acute) Hypomagnesemia (Acute) Chest discomfort (Acute) Hypomagnesemia (Acute) Chronic constipation (Acute) Epiploic appendagitis (Acute) Hypokalemia (Acute) Abdominal pain, lower (Acute) Left lower quadrant abdominal pain (Acute) Abdominal pain (Acute) Bronchitis (Acute) 10/08/2023 - Dx @ [facility] E/R Chani MORALES Bronchitis (Acute) Hypocalcemia (Acute) Heart palpitations (Acute) Ankle pain (Acute) Testicle lump (Acute) Hamstring tendinitis of left thigh (Acute) Pes anserine bursitis (Acute) Hypernatremia (Acute) Cervical radiculopathy (Acute) URI (upper respiratory infection) (Acute) Left-sided Flower's palsy (Acute) Neck pain on left side (Acute) Constipation (Acute) Grief reaction (Chronic) Opiate dependence, continuous (Acute) Cellulitis (Acute) Cholelithiases (Acute) 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 Possible 2' Methadone, Clnzpm (?). Surg eval (+)/No further action. History of electrolyte imbalance (Acute) Neck pain on left side (Acute) with shoulder, upper back pain.. torticollis, radiating into left hip/leg Pulmonary nodule 1 cm or greater in diameter (Chronic) Therapeutic opioid induced constipation (Acute) Sphincter of Oddi dysfunction (Chronic) Abnormal CT scan, kidney (Acute) Intrahepatic bile duct dilation (Acute) Common bile duct dilatation (Chronic) Has been dilated for quite some time, now more-so. Normal LFTs. Known gallstones. Abdominal pain (Acute) Iatrogenic hypocalcemia (Acute) Multiple endocrine neoplasia type I (Chronic) Chronic constipation (Chronic) Depression (Chronic) Hypomagnesemia (Chronic) Hypocalcemia (Chronic) Depression (Chronic) Suicidal ideation (Acute) Elevated parathyroid hormone (Acute) Family history of coronary arteriosclerosis (Chronic) Father of PR at 50, mother had PR at 42 Severe anxiety with panic (Chronic) Cellulitis (Acute) Medical History CKD (chronic kidney disease) stage 2, GFR 60-89 ml/min GFR 64-65, with Hx FLORESITA and GFR < 45 Primary hyperparathyroidism Complex medical condition Serious electrolyte imbalances, with gynecomastia, possible MEN Dx, CKD and anemia with baseline anxiety and Hx PTSD. Hypocalcemia Anxiety Depression Hyperlipidemia Family history of multiple endocrine neoplasia, type 1 PTSD (post-traumatic stress disorder) Per pt. states no triggers at this time. Surgical History H/O parathyroidectomy Family History Mother Anxiety Asthma Depression Sister Anxiety Depression Father Cancer lung & stomach Depression Diabetes Hypertension MEN 1 (multiple endocrine neoplasia) Social History Smoking/Tobacco Use Status: Never Smoking risk assessment performed?: Yes Alcohol Intake: never Drug use: Rarely Substance use type: does not use and former substance user Adopted: No Caregiver/Support person: No Foster care: No Household members: none Housing: apartment Number of Children: 0 Communication Needs: None Education Level: high school Do you need help understanding health information?: Never current occupation: [employer] Pets and animals: Yes (Ally) Pets and animals: dog(s) Sexually active: No Do you think of yourself as: straight/heterosexual Current gender identity: male What is your relationship status?: How often do you talk on the phone with friends or family?: twice per week How often do you get together with friends or relatives?: never Do you belong to any clubs or organized social groups?: no Panel score (0-1 are the most socially isolated patients): 0 What type of physical activity do you participate in: walking Duration: 15-30 minutes/day Frequency: 5-6 times per week Maryam/Lutheran: Jewish Special maryam needs: No Seatbelt use: always Helmet use: Yes Helmet use: always Drive intox or ride w/intox [employer] 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
[2023-10-30] MEDS: Lactated Ringers 1,000 ML 1000 ML IV (15:00)
[2023-10-30 15:10] LABS: HCT 33.7 % (40.0-50.0); HGB 11.3 g/dL (13.5-17.5); MCH 29.2 pg (27.0-33.0); MCHC 33.5 % (32.0-36.0); MCV 87 fL (80-95); Platelet Count 288 10^3/uL (130-400); RBC 3.87 10^6/uL (4.36-5.78); RDW-SD 40.5 fL; WBC 5.58 10^3/uL (4.4-10.8)
[2023-10-30 15:38] LABS: ALT 62 U/L (16-63); AST 43 U/L (15-37); Albumin 3.1 g/dL (3.4-5.0); Alkaline Phosphatase 130 U/L (46-116); Anion Gap 8.1 mmol/L (3-11); BUN 18 mg/dL (7-18); Bilirubin, Total 0.3 mg/dL (0.2-1.0); CO2 29.9 mmol/L (21.0-32.0); CREATININE 1.2 mg/dL (0.70-1.30); Chloride 103 mmol/L (98-107); Estimated GFR 83.43 (mL/min/1.73m2); Glucose 120 mg/dL (74-106); Lipase 28 U/L (16-77); Potassium 3.8 mmol/L (3.5-5.1); Sodium 141 mmol/L (136-145); Total Protein 7.4 g/dL (6.4-8.2)
[2023-10-30] MEDS: Simethicone 80 MG CHEW PO (16:09)
[2023-10-30 16:47] VITALS: BP 116/68; PULSE 84; RESP 14; O2SAT 99
== END 2023-10-30 16:49 | disposition home or self-care (01) ==
PROVIDERS: Emergency Provider Emergency Medicine; PCP Family Medicine
DX: R10.9 Unspecified abdominal pain (principal); R11.0 Nausea; R53.83 Other fatigue; R14.0 Abdominal distension (gaseous)
CPT/HCPCS: 36415; 80053; 83690; 85027; 96360; 99284; 99283

== ENCOUNTER 2023-10-31 22:55 | Emergency (ER) | payer OTHER, SELFPAY ==
[2023-10-31 23:01] VITALS: BP 140/95; PULSE 92; RESP 18; TEMP 36.8; O2SAT 99
--- NOTE | 2023-10-31 23:28 | W.ED.GENAD ---
Discharge Plan Disposition Patient Disposition: Home Condition: Good Discharge Details Clinical Impression: Abdominal pain Primary Care Provider: Brendon Vivar ED Provider: Richy Eagle Home Meds and New Rx's Prescriptions: No Action gabapentin 300 mg capsule 300 mg PO BID Qty: 180 3RF cyclobenzaprine 10 mg tablet 10 mg PO TID PRN (Reason: muscle spasm) Qty: 30 3RF methadone 10 mg/5 mL solution 105 mg PO QAM calcitriol 0.5 mcg capsule 0.5 mcg PO BID Qty: 360 3RF Hold Instructions: Resume on 06/15/22. diclofenac sodium 1 % gel 4 g topical QID Qty: 100 6RF Rx Instructions: apply to single knee, ankle, foot; for foot includes sole/toes/top of foot polyethylene glycol 3350 17 gram/dose powder 17 g PO DAILY omeprazole 40 mg capsule,delayed release(DR/EC) 40 mg PO DAILY Qty: 90 3RF clonazepam 1 mg tablet 1 mg PO BID Qty: 56 0RF calcium carbonate [Tums] 200 mg calcium (500 mg) tablet,chewable 2,000 mg PO BID Hold Instructions: Resume on 05/12/23. Please hold your nightly dose tonight and your a.m. dose tomorrow morning. prochlorperazine maleate 5 mg tablet 5 mg PO TID PRN (Reason: acute nausea) Qty: 30 0RF magnesium gluconate 27 mg magnesium (500 mg) tablet 27 mg PO BID Qty: 60 3RF ondansetron 4 mg tablet,disintegrating 4 mg PO Q8H PRN (Reason: nausea and vomiting) Qty: 20 0RF simethicone 125 mg tablet,chewable 125 mg PO QID PRN (Reason: abdominal distention) Qty: 20 0RF Discharge Instructions Instructions: Abdominal Pain (ED) Additional Instructions: At this time your symptoms have notably improved. Based on your findings at [place] and your current clinical assessment now you thankfully do not show evidence at this time of an acute life-threatening etiology. Please pay close attention to your symptoms, if you notice any worsening of your symptoms, or any new symptoms such as white-colored stool, dark urine, vomiting, diarrhea, fever, chills, shortness of breath, chest pain, numbness, weakness, or fainting , please return immediately to the emergency department for reevaluation. Please follow up with your primary care provider as soon as possible for reassessment and reevaluation. As always, it was a pleasure participating in your medical care today. Referrals: Brendon Vivar DO [Primary Care Provider] - Issac Pulido MD [ [facility] STAFF PHYSICIAN] - HPI General Date/Time Provider Initiated Documentation: 10/31/23 22:57. HPI Narrative: This is a 27-year-old male with a past medical history significant for anxiety, depression, high cholesterol, men type I, multiple electrolyte abnormalities with subsequent parathyroidectomy on 03/26/2022 at [facility], PTSD, GERD who presents today for right upper quadrant pain. Patient has a longstanding history of biliary colic, and over the last year and a half he has been trying to get his gallbladder removed however this has been complicated by multiple issues. Today he states that this morning he developed right upper quadrant sharp stabbing pain, he went to the [facility] emergency department where per patient he had a bedside ultrasound performed which showed common bile duct of 10 mm and he was discharged home. He states that pain improved during the day, but then became significantly worse this evening. He states that all he ate today was a small bowl of oatmeal. He denies any other complaints. He denies any vomiting or diarrhea. He denies any chest pain or shortness of breath. No other complaints at this time. No other modifying factors. He is scheduled to have a cholecystectomy in a month. Additionally he denies any dark urine, jacques colored stools, or other changes. Related Data Home Medications Medication Instructions Recorded Confirmed calcium carbonate (Tums) 2,000 mg PO BID 02/02/23 10/31/23 calcitriol 0.5 mcg capsule 0.5 mcg PO BID #360 caps 04/21/23 10/31/23 diclofenac sodium 1 % topical gel 4 g topical QID #100 grams 04/21/23 10/31/23 methadone 10 mg/5 mL oral solution 105 mg PO QAM 06/12/23 10/31/23 polyethylene glycol 3350 17 17 g PO DAILY 06/12/23 10/31/23 gram/dose oral powder gabapentin 300 mg capsule 300 mg PO BID #180 caps 06/23/23 10/31/23 omeprazole 40 mg capsule,delayed 40 mg PO DAILY #90 caps 07/21/23 10/31/23 release cyclobenzaprine 10 mg tablet 10 mg PO TID PRN muscle spasm #30 08/18/23 10/31/23 tabs prochlorperazine maleate 5 mg 5 mg PO TID PRN acute nausea #30 09/06/23 10/31/23 tablet tabs clonazepam 1 mg tablet 1 mg PO BID #56 tabs 10/10/23 10/31/23 magnesium gluconate 27 mg 27 mg PO BID #60 tabs 10/27/23 10/31/23 magnesium (500 mg) tablet ondansetron 4 mg disintegrating 4 mg PO Q8H PRN nausea and 10/30/23 10/31/23 tablet vomiting #20 tabs simethicone 125 mg chewable tablet 125 mg PO QID PRN abdominal 10/30/23 10/31/23 distention #20 tabs Previous Rx's Medication Instructions Recorded calcitriol 0.5 mcg capsule 0.5 mcg PO BID #360 caps 04/21/23 diclofenac sodium 1 % topical gel 4 g topical QID #100 grams 04/21/23 gabapentin 300 mg capsule 300 mg PO BID #180 caps 06/23/23 omeprazole 40 mg capsule,delayed 40 mg PO DAILY #90 caps 07/21/23 release cyclobenzaprine 10 mg tablet 10 mg PO TID PRN muscle spasm #30 08/18/23 tabs prochlorperazine maleate 5 mg 5 mg PO TID PRN acute nausea #30 09/06/23 tablet tabs clonazepam 1 mg tablet 1 mg PO BID #56 tabs 10/10/23 magnesium gluconate 27 mg 27 mg PO BID #60 tabs 10/27/23 magnesium (500 mg) tablet ondansetron 4 mg disintegrating 4 mg PO Q8H PRN nausea and 10/30/23 tablet vomiting #20 tabs simethicone 125 mg chewable tablet 125 mg PO QID PRN abdominal 10/30/23 distention #20 tabs Allergies Allergy/AdvReac Type Severity Reaction Status Date / Time codeine Allergy Intermediate pass out Verified 10/31/23 23:05 Penicillins Allergy Skin Rash Verified 10/31/23 23:05 amoxicillin AdvReac Intermediate Nausea Verified 10/31/23 23:05 dextromethorphan AdvReac Intermediate Other (See Verified 10/31/23 23:05 [From NyQuil] Comment) doxylamine [From NyQuil] AdvReac Intermediate Other (See Verified 10/31/23 23:05 Comment) pseudoephedrine [From NyQuil] AdvReac Intermediate Other (See Verified 10/31/23 23:05 Comment) General Stated Complaint: Abd Prob ADRIANA: 3 Review of Systems All systems reviewed & are unremarkable except as noted in HPI and below Exam Narrative Exam Narrative: 1.Const: Well-nourished, Well-developed, appearing stated age 2.Eyes: PERRL, no conjunctival injection, and symmetrical lids. 3.ENT: Atraumatic external nose and ears. Moist MM. Neck: Symmetric, trachea midline, No thyromegaly. 4.CVS: +S1/S2, No murmurs or gallops. Peripheral pulses 2+ and equal in all extremities. Brisk capillary refill in all extremities. 5.RESP: Unlabored respiratory effort. Clear to auscultation bilaterally. No wheezes rales or rhonchi 6.GI: Soft, nondistended, no guarding or rebound. Mild right upper quadrant tenderness, negative Cedillo sign. No pain at McBurney's point. No evidence of an acute surgical abdomen. 7.MSK: Normocephalic/Atraumatic, Extremities w/o deformity or ttp No cyanosis or clubbing, Normal movement of all extremities 8.Skin: Warm, Dry. No rashes or lesions. 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 Sensation grossly intact, no focal neurologic deficits. 10.Psych: (AAO) x3. Appropriate mood and affect Course Vital Signs Vital signs: Vital Signs Temperature 36.8 C 10/31/23 23:01 Pulse 92 H 10/31/23 23:01 Respiratory Rate 18 10/31/23 23:01 Blood Pressure 140/95 H 10/31/23 23:01 Pulse Oximetry 99 10/31/23 23:01 Temperature 36.8 C 10/31/23 23:01 Temperature Source Temporal Artery Scan 10/31/23 23:01 Pulse 92 H 10/31/23 23:01 Respiratory Rate 18 10/31/23 23:01 Blood Pressure 140/95 H 10/31/23 23:01 Blood Pressure Position Sitting 10/31/23 23:01 Pulse Oximetry 99 10/31/23 23:01 Oxygen Delivery Method Room Air 10/31/23 23:01 Oxygen Flow Rate 0 10/31/23 23:01 Pain Level 10 10/31/23 23:01 Medical Decision Making This is a 27-year-old male with a past medical history significant for anxiety, depression, high cholesterol, men type I, multiple electrolyte abnormalities with subsequent parathyroidectomy on 03/26/2022 at [facility], PTSD, GERD who presents today for right upper quadrant pain. Patient has a longstanding history of biliary colic, and over the last year and a half he has been trying to get his gallbladder removed however this has been complicated by multiple issues. Today he states that this morning he developed right upper quadrant sharp stabbing pain, he went to the [facility] emergency department where per patient he had a bedside ultrasound performed which showed common bile duct of 10 mm and he was discharged home. He states that pain improved during the day, but then became significantly worse this evening. He states that all he ate today was a small bowl of oatmeal. He denies any other complaints. He denies any vomiting or diarrhea. He denies any chest pain or shortness of breath. No other complaints at this time. No other modifying factors. He is scheduled to have a cholecystectomy in a month. Additionally he denies any dark urine, jacques colored stools, or other changes. Exam demonstrates stable vital signs, right upper quadrant tenderness, no pain at McBurney's point, negative Cedillo sign. Concern for biliary colic, symptoms appearing inconsistent with cholecystitis, acute surgical etiology, pancreatitis, or obstruction. No jaundice or fever to suggest choledocholithiasis or ascending cholangitis. Will start with Toradol and GI cocktail, monitor closely and reassess. We will reach out and get results/documentation from [place], monitor closely and reassess. 12:36 AM Results from [place] have been reviewed, ultrasound shows a 10 mm common bile duct, but no gallbladder wall edema, no signs of cholecystitis. Liver enzymes were normal, bilirubin was normal. No white count, transaminitis, or other abnormalities. On reassessment of [place] he has notable improvement of his symptoms. He denies any more significant pain in the right upper quadrant. Patient is feeling better and feels comfortable going home. Clinically the patient does not show clinical symptomatology that at this time is consistent with cholecystitis, ascending cholangitis, or choledocholithiasis. He has no fever, Cedillo sign, or surgical abdomen. I discussed labs and imaging versus close watchful waiting and follow-up. At this time through shared decision-making process he has elected to go home and follow-up closely with his surgeon or return if his symptoms return. Patient did tolerate p.o. prior to discharge with no complication. Patient will be stable. Will recommend continued NSAID use at home. Discussed red flags for which to return. I have extensively reviewed the treatment plan and discharge instructions with the patient. I have addressed all patient concerns at this time. The patient was made aware of what symptoms to monitor for that would warrant a return to the emergency department. Discussed the plan with the patient, they demonstrate verbal understanding and agreement with our assessment and plan at this time. The documentation in this chart was dictated using [employer] dictation software. Please excuse any dictation errors. Quality:SDOH Health Related Social Needs: Health related social needs transpo insecurity [facility] All Active Problems (Updated 11/01/23 @ 00:49 by Richy Eagle DO) Abdominal pain (Acute) Nausea (Acute) Abdominal bloating (Acute) Hypocalcemia (Acute) Hypomagnesemia (Acute) Chest discomfort (Acute) Hypomagnesemia (Acute) Chronic constipation (Acute) Epiploic appendagitis (Acute) Hypokalemia (Acute) Abdominal pain, lower (Acute) Left lower quadrant abdominal pain (Acute) Abdominal pain (Acute) Bronchitis (Acute) 10/08/2023 - Dx @ 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 ED Left arm numbness (Acute) Gynecomastia, male (Acute) b/l, per CT (Jul 2022).. Possible 2' Methadone, Clnzpm (?). Surg eval (+)/No further action. History of electrolyte imbalance (Acute) Neck pain on left side (Acute) with shoulder, upper back pain.. torticollis, radiating into left hip/leg Pulmonary nodule 1 cm or greater in diameter (Chronic) Therapeutic opioid induced constipation (Acute) Sphincter of Oddi dysfunction (Chronic) Abnormal CT scan, kidney (Acute) Intrahepatic bile duct dilation (Acute) Common bile duct dilatation (Chronic) Has been dilated for quite some time, now more-so. Normal LFTs. Known gallstones. Abdominal pain (Acute) Iatrogenic hypocalcemia (Acute) Multiple endocrine neoplasia type I (Chronic) Chronic constipation (Chronic) Depression (Chronic) Hypomagnesemia (Chronic) Hypocalcemia (Chronic) Depression (Chronic) Suicidal ideation (Acute) Elevated parathyroid hormone (Acute) Family history of coronary arteriosclerosis (Chronic) Father of ND at 50, mother had ND at 42 Severe anxiety with panic (Chronic) Cellulitis (Acute) Medical History CKD (chronic kidney disease) stage 2, GFR 60-89 ml/min GFR 64-65, with Hx FLORESITA and GFR < 45 Primary hyperparathyroidism Complex medical condition Serious electrolyte imbalances, with gynecomastia, possible MEN Dx, CKD and anemia with baseline anxiety and Hx PTSD. Hypocalcemia Anxiety Depression Hyperlipidemia Family history of multiple endocrine neoplasia, type 1 PTSD (post-traumatic stress disorder) Per pt. states no triggers at this time. Surgical History H/O parathyroidectomy Family History Mother Anxiety Asthma Depression Sister Anxiety Depression Father Cancer lung & stomach Depression Diabetes Hypertension MEN 1 (multiple endocrine neoplasia) Social History Smoking/Tobacco Use Status: Never Smoking risk assessment performed?: Yes Alcohol Intake: never Drug use: Rarely Substance use type: does not use and former substance user Adopted: No Caregiver/Support person: No Foster care: No Household members: none Housing: apartment Number of Children: 0 Communication Needs: None Education Level: high school Do you need help understanding health information?: Never 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[employer] Pets and animals: Yes (Ally) Pets and animals: dog(s) Sexually active: No Do you think of yourself as: straight/heterosexual Current gender identity: male What is your relationship status?: How often do you talk on the phone with friends or family?: twice per week How often do you get together with friends or relatives?: never Do you belong to any clubs or organized social groups?: no Panel score (0-1 are the most socially isolated patients): 0 What type of physical activity do you participate in: walking Duration: 15-30 minutes/day Frequency: 5-6 times per week Maryam/Lutheran: Religious Special maryam needs: No Seatbelt use: always Helmet use: Yes Helmet use: always Drive intox or ride w/intox water tanker 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
[2023-10-31] MEDS: Lidocaine 2% Viscous 15 ML CUP (23:30)
[2023-10-31] MEDS: Ketorolac 30 MG/ML VIAL IM (23:31)
[2023-11-01 00:38] VITALS: BP 118/67; PULSE 78; RESP 18; O2SAT 97
== END 2023-11-01 01:00 | disposition home or self-care (01) ==
PROVIDERS: Emergency Provider Student in an Organized Health Care Education/Training Program; PCP Family Medicine
DX: R10.11 Right upper quadrant pain (principal)
CPT/HCPCS: 96372; 99284; 99283; J1885

== ENCOUNTER 2023-11-01 11:20 | Emergency (ER) | payer OTHER, SELFPAY ==
[2023-11-01 11:35] VITALS: BP 119/73; PULSE 100; RESP 20; TEMP 37.1; O2SAT 96
--- NOTE | 2023-11-01 11:58 | ED.GENADUL_ITS ---
Discharge Plan Disposition Patient Disposition: Home Condition: Stable Discharge Details Clinical Impression: Nausea & vomiting Primary Care Provider: Brendon Vivar ED Provider: Ricardo Crabtree Home Meds and New Rx's Prescriptions: Continued gabapentin 300 mg capsule 300 mg PO BID Qty: 180 3RF cyclobenzaprine 10 mg tablet 10 mg PO TID PRN (Reason: muscle spasm) Qty: 30 3RF methadone 10 mg/5 mL solution 105 mg PO QAM calcitriol 0.5 mcg capsule 0.5 mcg PO BID Qty: 360 3RF Hold Instructions: Resume on 06/15/22. diclofenac sodium 1 % gel 4 g topical QID Qty: 100 6RF Rx Instructions: apply to single knee, ankle, foot; for foot includes sole/toes/top of foot polyethylene glycol 3350 17 gram/dose powder 17 g PO DAILY omeprazole 40 mg capsule,delayed release(DR/EC) 40 mg PO DAILY Qty: 90 3RF clonazepam 1 mg tablet 1 mg PO BID Qty: 56 0RF calcium carbonate [Tums] 200 mg calcium (500 mg) tablet,chewable 2,000 mg PO BID Hold Instructions: Resume on 05/12/23. Please hold your nightly dose tonight and your a.m. dose tomorrow morning. prochlorperazine maleate 5 mg tablet 5 mg PO TID PRN (Reason: acute nausea) Qty: 30 0RF magnesium gluconate 27 mg magnesium (500 mg) tablet 27 mg PO BID Qty: 60 3RF ondansetron 4 mg tablet,disintegrating 4 mg PO Q8H PRN (Reason: nausea and vomiting) Qty: 20 0RF simethicone 125 mg tablet,chewable 125 mg PO QID PRN (Reason: abdominal distention) Qty: 20 0RF Discharge Instructions Additional Instructions: Labs do not show any concerning findings today Follow-up with your primary care provider and general surgeon If you feel more ill, have severe worsening pain or new symptoms such as high fevers return to the emergency department for reevaluation HPI General Mode of arrival: ambulatory . Date/Time Provider Initiated Documentation: 11/01/23 11:22 . Limitations to Documentation: no limitations . Information obtained by: patient . History of Present Illness 28 year old M presents to the emergency department with the chief complaint of Nausea and vomiting, described as moderate, Patient started experiencing this hour(s) (1) and it has been intermittent. No relieving factors improve symptom(s), No exacerbating factors reported . Patient notes denies chest pain, f ever/chills and shortness of breath. Patient did receive the following treatments prior to arrival, none Related Data Home Medications Medication Instructions Recorded Confirmed calcium carbonate (Tums) 2,000 mg PO BID 02/02/23 11/01/23 calcitriol 0.5 mcg capsule 0.5 mcg PO BID #360 caps 04/21/23 11/01/23 diclofenac sodium 1 % topical gel 4 g topical QID #100 grams 04/21/23 11/01/23 methadone 10 mg/5 mL oral solution 105 mg PO QAM 06/12/23 11/01/23 polyethylene glycol 3350 17 17 g PO DAILY 06/12/23 11/01/23 gram/dose oral powder gabapentin 300 mg capsule 300 mg PO BID #180 caps 06/23/23 11/01/23 omeprazole 40 mg capsule,delayed 40 mg PO DAILY #90 caps 07/21/23 11/01/23 release cyclobenzaprine 10 mg tablet 10 mg PO TID PRN muscle spasm #30 08/18/23 11/01/23 tabs prochlorperazine maleate 5 mg 5 mg PO TID PRN acute nausea #30 09/06/23 11/01/23 tablet tabs clonazepam 1 mg tablet 1 mg PO BID #56 tabs 10/10/23 11/01/23 magnesium gluconate 27 mg 27 mg PO BID #60 tabs 10/27/23 11/01/23 magnesium (500 mg) tablet ondansetron 4 mg disintegrating 4 mg PO Q8H PRN nausea and 10/30/23 11/01/23 tablet vomiting #20 tabs simethicone 125 mg chewable tablet 125 mg PO QID PRN abdominal 10/30/23 11/01/23 distention #20 tabs Previous Rx's Medication Instructions Recorded calcitriol 0.5 mcg capsule 0.5 mcg PO BID #360 caps 04/21/23 diclofenac sodium 1 % topical gel 4 g topical QID #100 grams 04/21/23 gabapentin 300 mg capsule 300 mg PO BID #180 caps 06/23/23 omeprazole 40 mg capsule,delayed 40 mg PO DAILY #90 caps 07/21/23 release cyclobenzaprine 10 mg tablet 10 mg PO TID PRN muscle spasm #30 08/18/23 tabs prochlorperazine maleate 5 mg 5 mg PO TID PRN acute nausea #30 09/06/23 tablet tabs clonazepam 1 mg tablet 1 mg PO BID #56 tabs 10/10/23 magnesium gluconate 27 mg 27 mg PO BID #60 tabs 10/27/23 magnesium (500 mg) tablet ondansetron 4 mg disintegrating 4 mg PO Q8H PRN nausea and 10/30/23 tablet vomiting #20 tabs simethicone 125 mg chewable tablet 125 mg PO QID PRN abdominal 10/30/23 distention #20 tabs Allergies Allergy/AdvReac Type Severity Reaction Status Date / Time codeine Allergy Intermediate pass out Verified 11/01/23 11:37 Penicillins Allergy Skin Rash Verified 11/01/23 11:37 amoxicillin AdvReac Intermediate Nausea Verified 11/01/23 11:37 dextromethorphan AdvReac Intermediate Other (See Verified 11/01/23 11:37 [From NyQuil] Comment) doxylamine [From NyQuil] AdvReac Intermediate Other (See Verified 11/01/23 11:37 Comment) pseudoephedrine [From NyQuil] AdvReac Intermediate Other (See Verified 11/01/23 11:37 Comment) General Stated Complaint: Abd Prob ADRIANA: 3 Review of Systems All systems reviewed & are unremarkable except as noted in HPI and below Constitutional Constitutional: Denies chills, Denies fever(s) and Denies weakness Cardiovascular Cardiovascular: Denies chest pain and Denies dyspnea Respiratory Respiratory: Denies cough and Denies dyspnea Gastrointestinal Gastrointestinal: Reports abdominal pain, Reports nausea and Reports vomiting Musculoskeletal Musculoskeletal: Denies joint swelling Neurologic Neurologic: Denies weakness Exam Const General: no acute distress Orientation: alert HENMT Head: normal to inspection Ears: external ears normal General nose exam: external nose normal Mouth: moist mucous membranes Eyes General: appearance normal, both eyes and all related structures Neck Neck: normal visual inspection Resp Effort & Inspection: normal respiratory effort and able to speak in complete sentences Cardio Rate: regular rate GI Palpation: soft and nontender Skin General skin exam: no rashes or lesions noted Neuro General: patient alert and patient oriented x3 Extrem General: normal to inspection Psych Mental Status: mental status grossly normal Course Vital Signs Vital signs: Vital Signs Temperature 37.1 C 11/01/23 11:35 Pulse 100 H 11/01/23 11:35 Respiratory Rate 20 11/01/23 11:35 Blood Pressure 119/73 11/01/23 11:35 Pulse Oximetry 96 11/01/23 11:35 Temperature 37.1 C 11/01/23 11:35 Temperature Source Oral 11/01/23 11:35 Pulse 100 H 11/01/23 11:35 Respiratory Rate 20 11/01/23 11:35 Respiratory Effort Normal, Non-Labored 11/01/23 11:37 Blood Pressure 119/73 11/01/23 11:35 Blood Pressure Position Sitting 11/01/23 11:35 Pulse Oximetry 96 11/01/23 11:35 Oxygen Delivery Method Room Air 11/01/23 11:35 Oxygen Flow Rate 0 11/01/23 11:35 Pain Level 5 11/01/23 11:38 Medical Decision Making 1-year-old male with a history of men 1, frequent ER visits for nausea vomiting abdominal pain, comes in with an episode of nausea vomiting. He was seen in the ER last night, after going to [place] and being told his Bob bile duct was 10 mm. He had no pericholecystic fluid or other concerning findings. Apparently has a scheduled surgery in November. Has been seen multiple times for similar complaints with multiple CTs without significant acute findings. He says that this morning he had an episode of vomiting so came here, he says he still feels nauseous, has no abdominal tenderness on exam, appears well otherwise. Will check a CBC, CMP and lipase and reassess after Zofran and Toradol. Sitting in chair using his phone in no distress states he feels significantly better, still has no abdominal tenderness on exam and his labs showed no significant change from baseline. He is stable for discharge, will follow-up with his PCP and general surgeon, return precautions given Differential Diagnosis Differential Diagnosis: Psychosomatic disorder, gallbladder disorder, pancreatitis Quality:SDOH Health Related Social Needs: Health related social needs transpo insecurity PFSH All Active Problems (Updated 11/01/23 @ 14:00 by Ricardo Crabtree MD) Nausea & vomiting (Acute) Abdominal pain (Acute) Nausea (Acute) Abdominal bloating (Acute) Hypocalcemia (Acute) Hypomagnesemia (Acute) Chest discomfort (Acute) Hypomagnesemia (Acute) Chronic constipation (Acute) Epiploic appendagitis (Acute) Hypokalemia (Acute) Abdominal pain, lower (Acute) Left lower quadrant abdominal pain (Acute) Abdominal pain (Acute) Bronchitis (Acute) 10/08/2023 - Dx @ [facility] E/R Chani MORALES Bronchitis (Acute) Hypocalcemia (Acute) Heart palpitations (Acute) Ankle pain (Acute) Testicle lump (Acute) Hamstring tendinitis of left thigh (Acute) Pes anserine bursitis (Acute) Hypernatremia (Acute) Cervical radiculopathy (Acute) URI (upper respiratory infection) (Acute) Left-sided Flower's palsy (Acute) Neck pain on left side (Acute) Constipation (Acute) Grief reaction (Chronic) Opiate dependence, continuous (Acute) Cellulitis (Acute) Cholelithiases (Acute) 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 Possible 2' Methadone, Clnzpm (?). Surg eval (+)/No further action. History of electrolyte imbalance (Acute) Neck pain on left side (Acute) with shoulder, upper back pain.. torticollis, radiating into left hip/leg Pulmonary nodule 1 cm or greater in diameter (Chronic) Therapeutic opioid induced constipation (Acute) Sphincter of Oddi dysfunction (Chronic) Abnormal CT scan, kidney (Acute) Intrahepatic bile duct dilation (Acute) Common bile duct dilatation (Chronic) Has been dilated for quite some time, now more-so. Normal LFTs. Known gallstones. Abdominal pain (Acute) Iatrogenic hypocalcemia (Acute) Multiple endocrine neoplasia type I (Chronic) Chronic constipation (Chronic) Depression (Chronic) Hypomagnesemia (Chronic) Hypocalcemia (Chronic) Depression (Chronic) Suicidal ideation (Acute) Elevated parathyroid hormone (Acute) Family history of coronary arteriosclerosis (Chronic) Father of RI at 50, mother had RI at 42 Severe anxiety with panic (Chronic) Cellulitis (Acute) Medical History CKD (chronic kidney disease) stage 2, GFR 60-89 ml/min GFR 64-65, with Hx FLORESITA and GFR < 45 Primary hyperparathyroidism Complex medical condition Serious electrolyte imbalances, with gynecomastia, possible MEN Dx, CKD and anemia with baseline anxiety and Hx PTSD. Hypocalcemia Anxiety Depression Hyperlipidemia Family history of multiple endocrine neoplasia, type 1 PTSD (post-traumatic stress disorder) Per pt. states no triggers at this time. Surgical History H/O parathyroidectomy Family History Mother Anxiety Asthma Depression Sister Anxiety Depression Father Cancer lung & stomach Depression Diabetes Hypertension MEN 1 (multiple endocrine neoplasia) Social History Smoking/Tobacco Use Status: Never Smoking risk assessment performed?: Yes Alcohol Intake: never Drug use: Rarely Substance use type: does not use and former substance user Adopted: No Caregiver/Support person: No Foster care: No Household members: none Housing: apartment Number of Children: 0 Communication Needs: None Education Level: high school Do you need help understanding health information?: Never current occupation: [employer] Pets and animals: Yes (Ally) Pets and animals: dog(s) Sexually active: No Do you think of yourself as: straight/heterosexual Current gender identity: male What is your relationship status?: How often do you talk on the phone with friends or family?: twice per week How often do you get together with friends or relatives?: never Do you belong to any clubs or organized social groups?: no Panel score (0-1 are the most socially isolated patients): 0 What type of physical activity do you participate in: walking Duration: 15-30 minutes/day Frequency: 5-6 times per week Maryam/Taoist: Mandaeism Special maryam needs: No Seatbelt use: always Helmet use: Yes Helmet use: always Drive intox or ride w/intox local intermodal 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
[2023-11-01] MEDS: Ketorolac 15 MG/ML VIAL IM (12:10)
[2023-11-01] MEDS: Ondansetron O.D.T. 4 MG TABEF PO (12:10)
[2023-11-01 12:37] LABS: Abs Immature Grans 0.02 10^3/uL (0.0-0.06); Absolute Basophil Count 0.05 10^3/uL (0.0-0.2); Absolute Eosinophil Count 0.16 10^3/uL (0.0-0.7); Absolute Lymphocyte Count 1.52 10^3/uL (1.2-3.4); Absolute Monocyte Count 0.67 10^3/uL (0.1-0.8); Absolute Neutrophil Count 3.71 10^3/uL (1.2-6.7); Basophils % 0.8 %; Eosinophils % 2.6 %; HCT 35.6 % (40.0-50.0); HGB 11.8 g/dL (13.5-17.5); Immature Grans % 0.3 %; Lymphocytes % 24.8 %; MCH 29.3 pg (27.0-33.0); MCHC 33.1 % (32.0-36.0); MCV 88 fL (80-95); MPV 10.6 fL (8.0-11.0); Monocytes % 10.9 %; Neutrophils % 60.6 %; Platelet Count 292 10^3/uL (130-400); RBC 4.03 10^6/uL (4.36-5.78); RDW 12.8 % (11.8-14.1); RDW-SD 41.7 fL; WBC 6.13 10^3/uL (4.4-10.8)
[2023-11-01 12:47] LABS: Bilirubin Negative (Negative); Blood Negative (Negative); Clarity Clear (Clear); Glucose Negative (Negative); Ketones Negative (Negative); Leukocyte Esterase Negative (Negative); Nitrite Negative (Negative); Urobilinogen 0.2 mg/dL (Up to 0.2); pH 6.5 (5-8)
[2023-11-01 13:12] LABS: ALT 50 U/L (16-63); AST 29 U/L (15-37); Albumin 3.3 g/dL (3.4-5.0); Alkaline Phosphatase 126 U/L (46-116); Anion Gap 6.4 mmol/L (3-11); BUN 17 mg/dL (7-18); Bilirubin, Direct 0.1 mg/dL (0.0-0.2); Bilirubin, Total 0.4 mg/dL (0.2-1.0); CO2 32.6 mmol/L (21.0-32.0); CREATININE 1.4 mg/dL (0.70-1.30); Calcium 7.8 mg/dL (8.5-10.1); Chloride 102 mmol/L (98-107); Estimated GFR 69.34 (mL/min/1.73m2); Glucose 115 mg/dL (74-106); Lipase 28 U/L (16-77); Potassium 3.8 mmol/L (3.5-5.1); Sodium 141 mmol/L (136-145); Total Protein 7.8 g/dL (6.4-8.2)
== END 2023-11-01 14:24 | disposition home or self-care (01) ==
PROVIDERS: Emergency Provider Emergency Medicine; PCP Family Medicine
DX: R11.2 Nausea with vomiting, unspecified (principal); R10.9 Unspecified abdominal pain
CPT/HCPCS: 80053; 83690; 96372; 99284; 81003; 82248; 85025; 99283; J1885

== ENCOUNTER 2023-11-04 13:23 | Emergency (ER) | payer OTHER, SELFPAY ==
[2023-11-04 13:27] VITALS: BP 117/56; PULSE 88; RESP 20; TEMP 36.5; O2SAT 96
[2023-11-04 13:30] VITALS: BP 117/56; PULSE 88; RESP 20; TEMP 36.5; O2SAT 96
--- NOTE | 2023-11-04 13:46 | ED.GENADUL_ITS ---
Discharge Plan Disposition Patient Disposition: Home Condition: Stable Discharge Details Clinical Impression: Chronic abdominal pain Primary Care Provider: Brendon Vivar ED Provider: Richy Oakes Home Meds and New Rx's Prescriptions: Continued gabapentin 300 mg capsule 300 mg PO BID Qty: 180 3RF cyclobenzaprine 10 mg tablet 10 mg PO TID PRN (Reason: muscle spasm) Qty: 30 3RF methadone 10 mg/5 mL solution 105 mg PO QAM calcitriol 0.5 mcg capsule 0.5 mcg PO BID Qty: 360 3RF Hold Instructions: Resume on 06/15/22. diclofenac sodium 1 % gel 4 g topical QID Qty: 100 6RF Rx Instructions: apply to single knee, ankle, foot; for foot includes sole/toes/top of foot polyethylene glycol 3350 17 gram/dose powder 17 g PO DAILY omeprazole 40 mg capsule,delayed release(DR/EC) 40 mg PO DAILY Qty: 90 3RF clonazepam 1 mg tablet 1 mg PO BID Qty: 56 0RF calcium carbonate [Tums] 200 mg calcium (500 mg) tablet,chewable 2,000 mg PO BID Hold Instructions: Resume on 05/12/23. Please hold your nightly dose tonight and your a.m. dose tomorrow morning. prochlorperazine maleate 5 mg tablet 5 mg PO TID PRN (Reason: acute nausea) Qty: 30 0RF magnesium gluconate 27 mg magnesium (500 mg) tablet 27 mg PO BID Qty: 60 3RF ondansetron 4 mg tablet,disintegrating 4 mg PO Q8H PRN (Reason: nausea and vomiting) Qty: 20 0RF simethicone 125 mg tablet,chewable 125 mg PO QID PRN (Reason: abdominal distention) Qty: 20 0RF Discharge Instructions Instructions: Abdominal Pain (ED) Additional Instructions: You were seen in the emergency department for your chronic abdominal pain of the right upper quadrant. You have known gallstones, the ultrasound shows no evidence of gallbladder infection or gallbladder stone lodged in your common bile duct. That shows no evidence of hydronephrosis around the kidneys or obstructive uropathy from renal stones. Your laboratory workup is totally normal, he have baseline mild anemia I do not suspect any significant GI bleeding, there is no evidence to suggest infection. Even if you did have a small amount of GI bleeding your hemoglobin is at a stable level consistent with prior values, the recommendation would be to take [id number] famotidine twice per day and proceed with elective upper endoscopy by general surgery practice. Please return to the ED for any profound dark stools, bright red blood in the toilet, dizziness, palpitations, near fainting, fever, intractable nausea/vomiting. Referrals: [facility] [Provider Group] Brendon Vivar DO [Primary Care Provider] - Discharge Data Discharge Date/Time-TO BE ENTERED AT DEPARTURE: 11/04/23 15:25 HPI General Date/Time Provider Initiated Documentation: 11/04/23 13:31 . HPI Narrative: 28 year-old male presents to ED today by POV/ambulating with a chief complaint of RUQ pain, some dark stools- not black, pain radiating to the back, worse with eating with onset noted yesterday and today- has chronic RUQ abdominal pain, sphincter of Oddi dysfunction, followed by [facility] surgery. Quality described as abdominal pain, similar to prior gallbladder attacks- states he had some constipation but did have BMs of dark stools that were not black, denies fever, denies intractable nausea/vomiting, no radiation to chest pain, near syncope, dysuria, fever, cough, sore throat. Severity is described as severe. Palliating factors include nothing specific. Provoking factors include eating. Events leading up to the incident/Associated Symptoms: Patient has had planned cholecystectomy for a long time but has not had surgery yet. Patient not anticoagulated. Related Data Home Medications Medication Instructions Recorded Confirmed calcium carbonate (Tums) 2,000 mg PO BID 02/02/23 11/04/23 calcitriol 0.5 mcg capsule 0.5 mcg PO BID #360 caps 04/21/23 11/04/23 diclofenac sodium 1 % topical gel 4 g topical QID #100 grams 04/21/23 11/04/23 methadone 10 mg/5 mL oral solution 105 mg PO QAM 06/12/23 11/04/23 polyethylene glycol 3350 17 17 g PO DAILY 06/12/23 11/04/23 gram/dose oral powder gabapentin 300 mg capsule 300 mg PO BID #180 caps 06/23/23 11/04/23 omeprazole 40 mg capsule,delayed 40 mg PO DAILY #90 caps 07/21/23 11/04/23 release cyclobenzaprine 10 mg tablet 10 mg PO TID PRN muscle spasm #30 08/18/23 11/04/23 tabs prochlorperazine maleate 5 mg 5 mg PO TID PRN acute nausea #30 09/06/23 11/04/23 tablet tabs clonazepam 1 mg tablet 1 mg PO BID #56 tabs 10/10/23 11/04/23 magnesium gluconate 27 mg 27 mg PO BID #60 tabs 10/27/23 11/04/23 magnesium (500 mg) tablet ondansetron 4 mg disintegrating 4 mg PO Q8H PRN nausea and 10/30/23 11/04/23 tablet vomiting #20 tabs simethicone 125 mg chewable tablet 125 mg PO QID PRN abdominal 10/30/23 11/04/23 distention #20 tabs Previous Rx's Medication Instructions Recorded calcitriol 0.5 mcg capsule 0.5 mcg PO BID #360 caps 04/21/23 diclofenac sodium 1 % topical gel 4 g topical QID #100 grams 04/21/23 gabapentin 300 mg capsule 300 mg PO BID #180 caps 06/23/23 omeprazole 40 mg capsule,delayed 40 mg PO DAILY #90 caps 07/21/23 release cyclobenzaprine 10 mg tablet 10 mg PO TID PRN muscle spasm #30 08/18/23 tabs prochlorperazine maleate 5 mg 5 mg PO TID PRN acute nausea #30 09/06/23 tablet tabs clonazepam 1 mg tablet 1 mg PO BID #56 tabs 10/10/23 magnesium gluconate 27 mg 27 mg PO BID #60 tabs 10/27/23 magnesium (500 mg) tablet ondansetron 4 mg disintegrating 4 mg PO Q8H PRN nausea and 10/30/23 tablet vomiting #20 tabs simethicone 125 mg chewable tablet 125 mg PO QID PRN abdominal 10/30/23 distention #20 tabs Allergies Allergy/AdvReac Type Severity Reaction Status Date / Time codeine Allergy Intermediate pass out Verified 11/04/23 13:35 Penicillins Allergy Skin Rash Verified 11/04/23 13:35 amoxicillin AdvReac Intermediate Nausea Verified 11/04/23 13:35 dextromethorphan AdvReac Intermediate Other (See Verified 11/04/23 13:35 [From NyQuil] Comment) doxylamine [From NyQuil] AdvReac Intermediate Other (See Verified 11/04/23 13:35 Comment) pseudoephedrine [From NyQuil] AdvReac Intermediate Other (See Verified 11/04/23 13:35 Comment) General Stated Complaint: Abd Prob ADRIANA: 3 Review of Systems All systems reviewed & are unremarkable except as noted in HPI and below Exam Narrative Exam Narrative: GENERAL APPEARANCE: Well-nourished, non-toxic, awake and alert, atraumatic, no acute distress. SKIN: Warm, pink, dry, intact, without rashes/lesions/ulcerations. HEAD: Normocephalic, atraumatic, normal hair distribution for gender/age. EYES: Pupils PERRLA, EOMs intact without nystagmus, normal conjunctiva, no exudates on lids/lashes. ENT: Nares patent, no circumoral cyanosis, no facial swelling NECK: Supple, trachea midline, painless cervical ROM. LUNGS/CHEST: Lungs CTA bilaterally- no rhonchi/rales/wheezes diffusely, non- labored respirations, normal A/P diameter, symmetrical expansion, no chest wall deformity HEART (CV/PV): Regular rate and rhythm without murmur, no peripheral edema, no JVD. ABDOMEN: Soft, non-distended, no guarding, RUQ tenderness, no Rovsing's, no CVA tenderness. MSK: Normal ROM, no swelling/deformity to bilateral UEs or LEs, moving all e xtremities without weakness, no cyanosis, spine midline without tenderness, normal curvature. NEURO: Mental Status AAOx4 - alert to person, place, time, events No facial droop, no forehead involvement. Motor: No focal weakness - strength 5/5 in bilateral UEs and LEs, proximal and distal, symmetric. Sensory: sensation intact to light touch globally. Gait normal: patient ambulated without ataxia into ED room. PSYCH: euthymic, cooperative, pleasant, appropriate speech Course Vital Signs Vital signs: Vital Signs Temperature 36.5 C 11/04/23 13:27 Pulse 88 11/04/23 13:27 Respiratory Rate 20 11/04/23 13:27 Blood Pressure 117/56 L 11/04/23 13:27 Pulse Oximetry 96 11/04/23 13:27 Temperature 36.5 C 11/04/23 13:30 Temperature Source Tympanic 05/21/24 13:30 Pulse 88 11/04/23 13:30 Respiratory Rate 20 11/04/23 13:30 Respiratory Effort Normal 11/04/23 13:30 Blood Pressure 117/56 L 11/04/23 13:30 Blood Pressure Position Sitting 11/04/23 13:30 Pulse Oximetry 96 11/04/23 13:30 Oxygen Delivery Method Room Air 11/04/23 13:30 Oxygen Flow Rate 0 11/04/23 13:30 Pain Level 6 11/04/23 13:30 Medical Decision Making This dictation utilizes [id number] dictation software and may contain unedited grammatical errors. 28 y/o M presents to ED today with a chief complaint of RUQ abdominal pain, worse after eating, some dark stools but not black- denies nausea/vomiting, denies fever, is having BMs. Patient has chronic RUQ abdominal pain, followed by surgery. Patients' medical history: CKD, anxiety, sphincter of Oddi dysfunction, chronic abdominal pain, cholelithiasis, gynecomastia, history of parathyroidectomy. Family and social history: Lives independently, does not exercise, normal diet. Pertinent exam findings / vital signs include right upper quadrant tenderness without peritoneal findings, nontoxic vitals, benign cardiopulmonary status, neuro intact. Differential / pathologies of concern include acute pancreatitis, choledocholithiasis, cholelithiasis, gastritis or peptic/duodenal ulcer, unlikely GI hemorrhage, renal colic Diagnostic studies of: -CBC, BMP, liver panel, lipase, lactate, UA, US ABD RUQ. -CBC shows no leukocytosis, mild anemia that is baseline -BMP is benign -Lipase within normal limits -LFTs not elevated -UA no proteinuria or hematuria, do not suspect renal stone -US of the abdomen shows no CBD dilatation, known cholelithiasis without evidence for cholecystitis, benign kidney exam Interventions of: -recommend OTC famotidine, follow-up with Gen Surg. ED Course/Assessment/Plan: 28-year-old male presents with chronic right upper quadrant abdominal pain and known cholelithiasis, has no evidence for biliary obstruction or cholecystitis, no evidence for renal pathology, I counseled the patient on normal findings and avoiding further radiation with his significant history of many CTs. Recommend he follow-up with general surgery, trial OTC gastritis relief, strict return criteria for any worsening pain, intractable nausea vomiting, fever, further black stools especially with dizziness. Findings not consistent with cholangitis, choledocholithiasis, severe GI bleeding, sepsis, renal colic-likely gastritis and chronic gallbladder pain possibly related to a sphincter of Oddi dysfunction. Disposition of chronic abdominal pain. Patient verbalized understanding of the plan and return to ED criteria and engaged in shared decision making. Medical Records Medical records reviewed: Yes I reviewed the patient's medical records. Imaging Data Radiologic Study: Attestation: I personally reviewed and interpreted this imaging study as follows: Imaging: Ultrasound Radiologist's impression: EXAM: US ABDOMEN RENAL CLINICAL HISTORY: RUQ pain CVA tenderness R side TECHNIQUE: Ultrasound abdomen performed using standard protocol. COMPARISON: No exams were available for comparison FINDINGS: Exam is limited by patient body habitus. LIVER: Normal size. Mildly increased echogenicity. No focal liver lesions are seen. GALLBLADDER: Multiple small stones. No evidence of wall thickening. No pericholecystic fluid identified. GUERRA'S SIGN: Negative. BILIARY SYSTEM: No intrahepatic or extrahepatic biliary ductal dilation. Common bile duct not well visualized. No common duct stones are identified. KIDNEYS: Kidneys are symmetric in size. No gross evidence of renal calculi. No evidence of hydronephrosis. No renal mass or cyst identified. PANCREAS: Normal where visualized. SPLEEN: Not enlarged. ABDOMINAL AORTA AND IVC: Visualized portions normal caliber. ASCITES: None seen. Bladder: No stones, wall thickening or mass. Please void volume 351 cc. 19 cc postvoid residual. IMPRESSION: Exam limited by patient body habitus. Cholelithiasis. No evidence of acute cholecystitis. Kidneys appear grossly normal. Bladder normal. Lab Data Lab results reviewed: Yes I reviewed the patient's lab results. Labs: Laboratory Tests Range/Units 11/04/23 11/04/23 13:50 14:34 WBC (4.4-10.8) 10^3/uL 5.32 RBC (4.36-5.78) 10^6/uL 3.78 L Hgb (13.5-17.5) g/dL 11.0 L Hct (40.0-50.0) % 33.1 L MCV (80-95) fL 88 MCH (27.0-33.0) pg 29.1 MCHC (32.0-36.0) % 33.2 RDW (11.8-14.1) % 13.1 Plt Count (130-400) 10^3/uL 251 MPV (8.0-11.0) fL 10.4 Immature Gran % % 0.2 Neutrophils % % 59.0 Lymphocytes % % 24.2 Monocytes % % 12.4 Eosinophils % % 3.6 Basophils % % 0.6 Nucleated RBC % (0.0-0.3) % 0.0 Absolute Neutrophils (1.2-6.7) 10^3/uL 3.14 Absolute Lymphocytes (1.2-3.4) 10^3/uL 1.29 Absolute Monocytes (0.1-0.8) 10^3/uL 0.66 Absolute Eosinophils (0.0-0.7) 10^3/uL 0.19 Absolute Basophils (0.0-0.2) 10^3/uL 0.03 VBG Lactate (0.6-1.4) mmol/L 0.8 Sodium (136-145) mmol/L 140 Potassium (3.5-5.1) mmol/L 3.9 Chloride (98-107) mmol/L 103 Carbon Dioxide (21.0-32.0) mmol/L 30.7 Anion Gap (3-11) mmol/L 6.3 BUN (7-18) mg/dL 21 H Creatinine (0.70-1.30) mg/dL 1.2 Est GFR (CKD-EPI 2020) (mL/min/1.73m2) 83.43 Glucose (74-106) mg/dL 119 H Calcium (8.5-10.1) mg/dL 7.7 L Total Bilirubin (0.2-1.0) mg/dL 0.2 Conjugated Bilirubin (0.0-0.2) mg/dL 0.1 AST (15-37) U/L 22 ALT (16-63) U/L 39 Alkaline Phosphatase (46-116) U/L 114 Total Protein (6.4-8.2) g/dL 7.2 Albumin (3.4-5.0) g/dL 3.1 L Lipase (16-77) U/L 27 Urine Color (Yellow) Yellow Urine Clarity (Clear) Clear Urine pH (5-8) 7.0 Ur Specific [place] (1.005-1.025) 1.010 Urine Protein (Neg-Trace) mg/dL Negative Urine Ketones (Negative) mg/dL Negative Urine Blood (Negative) Negative Urine Nitrite (Negative) Negative Urine Bilirubin (Negative) Negative Urine Urobilinogen (Up to 0.2) mg/dL 0.2 Ur Leukocyte Esterase (Negative) Negative Urine Glucose (Negative) mg/dL Negative Quality:SDOH Health Related Social Needs: Health related social needs transpo insecurity [facility] All Active Problems (Updated 11/06/23 @ 00:08 by HAMMAD WILEY) Chronic abdominal pain (Acute) Nausea & vomiting (Acute) Abdominal pain (Acute) Nausea (Acute) Abdominal bloating (Acute) Hypocalcemia (Acute) Hypomagnesemia (Acute) Chest discomfort (Acute) Hypomagnesemia (Acute) Chronic constipation (Acute) Epiploic appendagitis (Acute) Hypokalemia (Acute) Abdominal pain, lower (Acute) Left lower quadrant abdominal pain (Acute) Abdominal pain (Acute) Bronchitis (Acute) 10/08/2023 - Dx @ [facility] E/R Chani MORALES Bronchitis (Acute) Hypocalcemia (Acute) Heart palpitations (Acute) Testicle lump (Acute) Hamstring tendinitis of left thigh (Acute) Pes anserine bursitis (Acute) Hypernatremia (Acute) Cervical radiculopathy (Acute) URI (upper respiratory infection) (Acute) Left-sided Flower's palsy (Acute) Neck pain on left side (Acute) Constipation (Acute) Grief reaction (Chronic) Opiate dependence, continuous (Acute) Cellulitis (Acute) Cholelithiases (Acute) 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 Possible 2' Methadone, Clnzpm (?). Surg eval (+)/No further action. History of electrolyte imbalance (Acute) Neck pain on left side (Acute) with shoulder, upper back pain.. torticollis, radiating into left hip/leg Pulmonary nodule 1 cm or greater in diameter (Chronic) Therapeutic opioid induced constipation (Acute) Sphincter of Oddi dysfunction (Chronic) Abnormal CT scan, kidney (Acute) Intrahepatic bile duct dilation (Acute) Common bile duct dilatation (Chronic) Has been dilated for quite some time, now more-so. Normal LFTs. Known gallstones. Abdominal pain (Acute) Iatrogenic hypocalcemia (Acute) Multiple endocrine neoplasia type I (Chronic) Chronic constipation (Chronic) Depression (Chronic) Hypomagnesemia (Chronic) Hypocalcemia (Chronic) Depression (Chronic) Suicidal ideation (Acute) Elevated parathyroid hormone (Acute) Family history of coronary arteriosclerosis (Chronic) Father of MT at 50, mother had MT at 42 Severe anxiety with panic (Chronic) Cellulitis (Acute) Medical History CKD (chronic kidney disease) stage 2, GFR 60-89 ml/min GFR 64-65, with Hx FLORESITA and GFR < 45 Primary hyperparathyroidism Complex medical condition Serious electrolyte imbalances, with gynecomastia, possible MEN Dx, CKD and anemia with baseline anxiety and Hx PTSD. Hypocalcemia Anxiety Depression Hyperlipidemia Family history of multiple endocrine neoplasia, type 1 PTSD (post-traumatic stress disorder) Per pt. states no triggers at this time. Surgical History H/O parathyroidectomy Family History Mother Anxiety Asthma Depression Sister Anxiety Depression Father Cancer lung & stomach Depression Diabetes Hypertension MEN 1 (multiple endocrine neoplasia) Social History Smoking/Tobacco Use Status: Never Smoking risk assessment performed?: Yes Alcohol Intake: never Drug use: Rarely Substance use type: does not use and former substance user Adopted: No Caregiver/Support person: No Foster care: No Household members: none Housing: apartment Number of Children: 0 Communication Needs: None Education Level: high school Do you need help understanding health information?: Never current occupation: [employer] Pets and animals: Yes (Ally) Pets and animals: dog(s) Sexually active: No Do you think of yourself as: straight/heterosexual Current gender identity: male What is your relationship status?: How often do you talk on the phone with friends or family?: twice per week How often do you get together with friends or relatives?: never Do you belong to any clubs or organized social groups?: no Panel score (0-1 are the most socially isolated patients): 0 What type of physical activity do you participate in: walking Duration: 15-30 minutes/day Frequency: 5-6 times per week Maryam/Denominational: [employer] Special maryam needs: No Seatbelt use: always Helmet use: Yes Helmet use: always Drive intox or ride w/intox dray 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
[2023-11-04 13:58] LABS: Lactate 0.8 mmol/L (0.6-1.4)
[2023-11-04 14:01] LABS: Abs Immature Grans 0.01 10^3/uL (0.0-0.06); Absolute Basophil Count 0.03 10^3/uL (0.0-0.2); Absolute Eosinophil Count 0.19 10^3/uL (0.0-0.7); Absolute Lymphocyte Count 1.29 10^3/uL (1.2-3.4); Absolute Monocyte Count 0.66 10^3/uL (0.1-0.8); Absolute Neutrophil Count 3.14 10^3/uL (1.2-6.7); Basophils % 0.6 %; Eosinophils % 3.6 %; HCT 33.1 % (40.0-50.0); Immature Grans % 0.2 %; Lymphocytes % 24.2 %; MCH 29.1 pg (27.0-33.0); MCHC 33.2 % (32.0-36.0); MCV 88 fL (80-95); MPV 10.4 fL (8.0-11.0); Monocytes % 12.4 %; Platelet Count 251 10^3/uL (130-400); RBC 3.78 10^6/uL (4.36-5.78); RDW 13.1 % (11.8-14.1); RDW-SD 41.7 fL; WBC 5.32 10^3/uL (4.4-10.8)
[2023-11-04 14:15] LABS: ALT 39 U/L (16-63); AST 22 U/L (15-37); Albumin 3.1 g/dL (3.4-5.0); Alkaline Phosphatase 114 U/L (46-116); Anion Gap 6.3 mmol/L (3-11); BUN 21 mg/dL (7-18); Bilirubin, Direct 0.1 mg/dL (0.0-0.2); Bilirubin, Total 0.2 mg/dL (0.2-1.0); CO2 30.7 mmol/L (21.0-32.0); CREATININE 1.2 mg/dL (0.70-1.30); Calcium 7.7 mg/dL (8.5-10.1); Chloride 103 mmol/L (98-107); Estimated GFR 83.43 (mL/min/1.73m2); Glucose 119 mg/dL (74-106); Lipase 27 U/L (16-77); Potassium 3.9 mmol/L (3.5-5.1); Sodium 140 mmol/L (136-145); Total Protein 7.2 g/dL (6.4-8.2)
[2023-11-04] MEDS: Ketorolac 15 MG/ML VIAL IVP (14:31)
--- NOTE | 2023-11-04 14:35 | DI.US_ITS ---
Exam(s) US ABDOMEN RENAL EXAM: US ABDOMEN RENAL CLINICAL HISTORY: RUQ pain CVA tenderness R side TECHNIQUE: Ultrasound abdomen performed using standard protocol. COMPARISON: No exams were available for comparison FINDINGS: Exam is limited by patient body habitus. LIVER: Normal size. Mildly increased echogenicity. No focal liver lesions are seen. GALLBLADDER: Multiple small stones. No evidence of wall thickening. No pericholecystic fluid identif ied. GUERRA'S SIGN: Negative. BILIARY SYSTEM: No intrahepatic or extrahepatic biliary ductal dilation. Common bile duct not well v isualized. No common duct stones are identified. KIDNEYS: Kidneys are symmetric in size. No gross evidence of renal calculi. No evidence of hydronephr osis. No renal mass or cyst identified. PANCREAS: Normal where visualized. SPLEEN: Not enlarged. ABDOMINAL AORTA AND IVC: Visualized portions normal caliber. ASCITES: None seen. Bladder: No stones, wall thickening or mass. Please void volume 351 cc. 19 cc postvoid residual. IMPRESSION: Exam limited by patient body habitus. Cholelithiasis. No evidence of acute cholecystitis. Kidneys appear grossly normal. Bladder normal. DATA REPOSITORY:
[2023-11-04 14:41] VITALS: BP 120/67; PULSE 75; RESP 18; O2SAT 95
[2023-11-04 15:12] LABS: Bilirubin Negative (Negative); Blood Negative (Negative); Clarity Clear (Clear); Glucose Negative (Negative); Ketones Negative (Negative); Leukocyte Esterase Negative (Negative); Nitrite Negative (Negative); Urobilinogen 0.2 mg/dL (Up to 0.2)
== END 2023-11-04 15:25 | disposition home or self-care (01) ==
PROVIDERS: Emergency Provider Physician Assistant; PCP Family Medicine
DX: R10.11 Right upper quadrant pain (principal); G89.29 Other chronic pain; K80.20 Calculus of gallbladder without cholecystitis without obstruction
CPT/HCPCS: 36415; 76770; 80048; 80076; 83690; 96374; 99284; 76700; 81003; 83605; 85025; 99283; J1885

== ENCOUNTER 2023-11-06 19:55 | Emergency (ER) | payer OTHER, SELFPAY ==
[2023-11-06 20:07] VITALS: BP 126/71; PULSE 110; RESP 18; TEMP 36.6; O2SAT 96
--- NOTE | 2023-11-06 20:23 | ED.GENADUL_ITS ---
Discharge Plan Disposition Patient Disposition: Home Condition: Stable Discharge Details Clinical Impression: Strain of right groin Primary Care Provider: Brendon Vivar ED Provider: Richy Oakes Home Meds and New Rx's Prescriptions: Continued gabapentin 300 mg capsule 300 mg PO BID Qty: 180 3RF cyclobenzaprine 10 mg tablet 10 mg PO TID PRN (Reason: muscle spasm) Qty: 30 3RF methadone 10 mg/5 mL solution 105 mg PO QAM calcitriol 0.5 mcg capsule 0.5 mcg PO BID Qty: 360 3RF Hold Instructions: Resume on 06/15/22. diclofenac sodium 1 % gel 4 g topical QID Qty: 100 6RF Rx Instructions: apply to single knee, ankle, foot; for foot includes sole/toes/top of foot polyethylene glycol 3350 17 gram/dose powder 17 g PO DAILY omeprazole 40 mg capsule,delayed release(DR/EC) 40 mg PO DAILY Qty: 90 3RF clonazepam 1 mg tablet 1 mg PO BID Qty: 56 0RF calcium carbonate [Tums] 200 mg calcium (500 mg) tablet,chewable 2,000 mg PO BID Hold Instructions: Resume on 05/12/23. Please hold your nightly dose tonight and your a.m. dose tomorrow morning. prochlorperazine maleate 5 mg tablet 5 mg PO TID PRN (Reason: acute nausea) Qty: 30 0RF magnesium gluconate 27 mg magnesium (500 mg) tablet 27 mg PO BID Qty: 60 3RF ondansetron 4 mg tablet,disintegrating 4 mg PO Q8H PRN (Reason: nausea and vomiting) Qty: 20 0RF simethicone 125 mg tablet,chewable 125 mg PO QID PRN (Reason: abdominal distention) Qty: 20 0RF Discharge Instructions Instructions: Groin Strain (ED) Additional Instructions: You were seen in the emergency department for the right groin pain, the CT scan shows no acute pathology in this region, it does show diffuse constipation and colitis which is chronic. This may be the source of your pain, you also may have an abdominal wall muscle strain which is consistent with your pain being worse with certain positioning's. He did not have testicular tenderness I do not suspect testicular torsion at this time. Please apply gentle heat to the area of pain, use Tylenol and ibuprofen for pain I am providing you with a to go pack of muscle relaxers, please follow-up with surgery regarding your chronic colitis. If you develop redness of the scrotum and significant scrotal swelling please return to the emergency department preferably during regular hours so he may ultrasound the scrotum but I do not suspect you are needing acute imaging at this time, you have a cyst on your left kidney that has possibly grown in size a nd the radiologist is recommending outpatient MRI within 6 to 12 months. Referrals: Brendon Vivar DO [Primary Care Provider] - HPI General Date/Time Provider Initiated Documentation: 11/06/23 20:23 . HPI Narrative: 28 year-old male presents to ED today by POV/ambulating with a chief complaint of R groin/inguinal pain, radiating to scrotum but not testicles themselves with onset 2 hours ago, was sitting at home watching TV, denies any straining- states severe pain. Quality described as sharp straining pain, no radiation to fever, penile discharge, dysuria, flank pain, nausea vomiting, severe other abdominal pain, denies swelling or bulging feeling. Severity is described as 8 or 9/10. Palliating factors include nothing specific attempted yet. Provoking factors include nothing specific. Events leading up to the incident/Associated Symptoms: Patient has long history of chronic abdominal pain, was seen by this provider for similar pain diagnosed as abdominal wall muscle strain at the recent visit, patient does endorse that the pain is significantly worse with positional changes especially with using the lower abdominal muscles. Patient not anticoagulated. Related Data Home Medications Medication Instructions Recorded Confirmed calcium carbonate (Tums) 2,000 mg PO BID 02/02/23 11/06/23 calcitriol 0.5 mcg capsule 0.5 mcg PO BID #360 caps 04/21/23 11/06/23 diclofenac sodium 1 % topical gel 4 g topical QID #100 grams 04/21/23 11/06/23 methadone 10 mg/5 mL oral solution 105 mg PO QAM 06/12/23 11/06/23 polyethylene glycol 3350 17 17 g PO DAILY 06/12/23 11/06/23 gram/dose oral powder gabapentin 300 mg capsule 300 mg PO BID #180 caps 06/23/23 11/06/23 omeprazole 40 mg capsule,delayed 40 mg PO DAILY #90 caps 07/21/23 11/06/23 release cyclobenzaprine 10 mg tablet 10 mg PO TID PRN muscle spasm #30 08/18/23 11/06/23 tabs prochlorperazine maleate 5 mg 5 mg PO TID PRN acute nausea #30 09/06/23 11/06/23 tablet tabs clonazepam 1 mg tablet 1 mg PO BID #56 tabs 10/10/23 11/06/23 magnesium gluconate 27 mg 27 mg PO BID #60 tabs 10/27/23 11/06/23 magnesium (500 mg) tablet ondansetron 4 mg disintegrating 4 mg PO Q8H PRN nausea and 10/30/23 11/06/23 tablet vomiting #20 tabs simethicone 125 mg chewable tablet 125 mg PO QID PRN abdominal 10/30/23 11/06/23 distention #20 tabs Previous Rx's Medication Instructions Recorded calcitriol 0.5 mcg capsule 0.5 mcg PO BID #360 caps 04/21/23 diclofenac sodium 1 % topical gel 4 g topical QID #100 grams 04/21/23 gabapentin 300 mg capsule 300 mg PO BID #180 caps 06/23/23 omeprazole 40 mg capsule,delayed 40 mg PO DAILY #90 caps 07/21/23 release cyclobenzaprine 10 mg tablet 10 mg PO TID PRN muscle spasm #30 08/18/23 tabs prochlorperazine maleate 5 mg 5 mg PO TID PRN acute nausea #30 09/06/23 tablet tabs clonazepam 1 mg tablet 1 mg PO BID #56 tabs 10/10/23 magnesium gluconate 27 mg 27 mg PO BID #60 tabs 10/27/23 magnesium (500 mg) tablet ondansetron 4 mg disintegrating 4 mg PO Q8H PRN nausea and 10/30/23 tablet vomiting #20 tabs simethicone 125 mg chewable tablet 125 mg PO QID PRN abdominal 10/30/23 distention #20 tabs Allergies Allergy/AdvReac Type Severity Reaction Status Date / Time codeine Allergy Intermediate pass out Verified 11/06/23 21:04 Penicillins Allergy Skin Rash Verified 11/06/23 21:04 amoxicillin AdvReac Intermediate Nausea Verified 11/06/23 21:04 dextromethorphan AdvReac Intermediate Other (See Verified 11/06/23 21:04 [From NyQuil] Comment) doxylamine [From NyQuil] AdvReac Intermediate Other (See Verified 11/06/23 21:04 Comment) pseudoephedrine [From NyQuil] AdvReac Intermediate Other (See Verified 11/06/23 21:04 Comment) General Stated Complaint: Male Reproductive Problem ADRIANA: 3 Review of Systems All systems reviewed & are unremarkable except as noted in HPI and below Exam Narrative Exam Narrative: GENERAL APPEARANCE: Well-nourished, non-toxic, awake and alert, atraumatic, no acute distress. SKIN: Warm, pink, dry, intact, without rashes/lesions/ulcerations. HEAD: Normocephalic, atraumatic, normal hair distribution for gender/age. EYES: Pupils PERRLA, EOMs intact without nystagmus, normal conjunctiva, no exudates on lids/lashes. ENT: Nares patent, no circumoral cyanosis, no facial swelling NECK: Supple, trachea midline, painless cervical ROM. LUNGS/CHEST: Lungs CTA bilaterally- no rhonchi/rales/wheezes diffusely, non- labored respirations, normal A/P diameter, symmetrical expansion, no chest wall deformity HEART (CV/PV): Regular rate and rhythm without murmur, no peripheral edema, no JVD. ABDOMEN/: Soft, non-distended, no guarding, no focal swelling palpated, there is a small bulge at R inguinal canal with coughing, no testicular tenderness, no scrotal swelling, cremasteric reflexes intact, no erythema, no subcutaneous crepitus, no tenderness at McBurney's point. MSK: Normal ROM, no swelling/deformity to bilateral UEs or LEs, moving all extremities without weakness, no cyanosis, spine midline without tenderness, normal curvature. NEURO: Mental Status AAOx4 - alert to person, place, time, events No facial droop, no forehead involvement. Motor: No focal weakness - strength 5/5 in bilateral UEs and LEs, proximal and distal, symmetric. Sensory: sensation intact to light touch globally. Gait normal: patient ambulated without ataxia into ED room. PSYCH: euthymic, cooperative, pleasant, appropriate speech Course Vital Signs Vital signs: Vital Signs Temperature 36.6 C 11/06/23 20:07 Pulse 110 H 11/06/23 20:07 Respiratory Rate 18 11/06/23 20:07 Blood Pressure 126/71 11/06/23 20:07 Pulse Oximetry 96 11/06/23 20:07 Temperature 36.6 C 11/06/23 20:07 Pulse 110 H 11/06/23 20:07 Respiratory Rate 18 11/06/23 20:07 Respiratory Effort Normal 11/06/23 20:09 Blood Pressure 126/71 11/06/23 20:07 Blood Pressure Position Sitting 11/06/23 20:07 Pulse Oximetry 96 11/06/23 20:07 Oxygen Delivery Method Room Air 11/06/23 20:07 Oxygen Flow Rate 0 11/06/23 20:07 Medical Decision Making This dictation utilizes [id number] dictation software and may contain unedited grammatical errors. 28 y/o M presents to ED today with a chief complaint of R sided lower abdominal/groin pain, worse with positional movements- states very bad, worse than many other pain issues- denies scrotal swelling, dysuria, flank pain, upper abdominal pain. 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 Family and social history: Lives independently. Pertinent exam findings / vital signs include ABDOMEN/: Soft, non-distended, no guarding, no focal swelling palpated, there is a small bulge at R inguinal canal with coughing, no testicular tenderness, no scrotal swelling, cremasteric reflexes intact, no erythema, no subcutaneous crepitus, no tenderness at McBurney's point. Differential / pathologies of concern include hernia, incarcerated hernia, unlikely testicular torsion, unlikely Watson's gangrene, abdominal wall muscle strain. Diagnostic studies of: -CBC, CMP, Lactate, UA, CT ABD/Pelvis w Contrast. -CBC shows chronic anemia, no leukocytosis -Lactate 1.1 -UA benign -CMP mild increase in SCR and BUN, likely dehydration -CT shows diffuse colitis which has been present in the past, recommending surveillance of enlarging hypodense lesion on left kidney, there is no pathology seen near the patient's pain. Interventions of: -IV APAP, IV Ketorlac. ED Course/Assessment/Plan: 28-year-old male presents with right inguinal pain, has no testicular tenderness, no redness or swelling or scrotal swelling, no subcutaneous emphysem a, he has pain with positional changes especially like doing a sit up. I do suspect he has an element of abdominal wall muscle strain with his baseline physical fitness but a small fat-containing hernia cannot be ruled out, there is no incarcerated hernia or other pathology seen in this area on CT, he has known chronic colitis and has a PCP appointment tomorrow I recommend he receive an outpatient inguinal ultrasound. Patient is well-known to the surgery practice and can be followed up on an outpatient basis for possible small hernia, counseled on low likelihood of testicular torsion or infectious etiology but strict return criteria for any severe increase in pain especially with redness, testicular tenderness. Findings not consistent with testicular torsion, incarcerated hernia, SBO, Watson's gangrene, volvulus or other bowel pathology. Disposition of Strain of Right Groin. Patient verbalized understanding of the plan and return to ED criteria and engaged in shared decision making. Medical Records Medical records reviewed: Yes I reviewed the patient's medical records. Imaging Data Radiologic Study: Attestation: I personally reviewed and interpreted this imaging study as follows: Imaging: CT Scan Radiologist's impression: Exam: CT Abdomen And Pelvis With Contrast Exam date and time: 11/06/2023 9:19 PM Age: 28 years old Clinical indication: Other: R inguinal severe pain TECHNIQUE: Imaging protocol: Computed tomography of the abdomen and pelvis with contrast. Contrast material: OMNI 350; Contrast volume: 100 ml; Contrast route: INTRAVENOUS (IV); COMPARISON: CT ABDOMEN PELVIS W 10/15/2023 12:54 AM FINDINGS: Liver: Normal. No mass. Gallbladder and bile ducts: Normal. No calcified stones. No ductal dilation. Pancreas: Normal. No ductal dilation. Spleen: Normal. No splenomegaly. Adrenal glands: Normal. No mass. Kidneys and ureters: Rounded 1.8 cm hypodense cortical lesion upper pole left kidney appears increased in size compared to study 10/15/2023. Right kidney appears normal. No hydronephrosis. Stomach and bowel: Significant fecal retention throughout the colon. Significant colonic redundancy. There appears to be long segment thickening of the distal transverse descending portions of the colon concerning for acute colitis. No evidence of bowel obstruction. Appendix: The appendix is visualized and appears normal. Intraperitoneal space: Unremarkable. No free air. No significant fluid collection. Vasculature: Unremarkable. No abdominal aortic aneurysm. Lymph nodes: Unremarkable. No enlarged lymph nodes. Urinary bladder: Unremarkable as visualized. Reproductive: Unremarkable as visualized. Bones/joints: Unremarkable. No acute fracture. Soft tissues: Unremarkable. IMPRESSION: 1. Findings concerning for acute colitis in the transverse and descending colon. Significant findings colonic constipation. 2. Apparent interval increase in size of 1.8 cm hypodense lesion upper pole left kidney. Recommend non-emergent MRI without and with contrast or non-emergent CT without and with contrast. MRI is preferred for masses under 1.5 cm. Reference: Esther GRIDER, Management of the Incidental Renal Mass on CT: A White Paper of the ACR Incidental Findings Committee, JACR 2018. Dictated and Authenticated by: Andrei Cantu MD. Ordering:RAMANA Lockhart MD Lab Data Lab results reviewed: Yes I reviewed the patient's lab results. Labs: Laboratory Tests Range/Units 11/06/23 11/06/23 20:50 20:53 WBC (4.4-10.8) 10^3/uL 8.74 RBC (4.36-5.78) 10^6/uL 4.08 L Hgb (13.5-17.5) g/dL 11.8 L Hct (40.0-50.0) % 36.0 L MCV (80-95) fL 88 MCH (27.0-33.0) pg 28.9 MCHC (32.0-36.0) % 32.8 RDW (11.8-14.1) % 13.1 Plt Count (130-400) 10^3/uL 272 MPV (8.0-11.0) fL 11.1 H Immature Gran % % 0.3 Neutrophils % % 68.8 Lymphocytes % % 17.5 Monocytes % % 11.3 Eosinophils % % 1.5 Basophils % % 0.6 Nucleated RBC % (0.0-0.3) % 0.0 Absolute Neutrophils (1.2-6.7) 10^3/uL 6.01 Absolute Lymphocytes (1.2-3.4) 10^3/uL 1.53 Absolute Monocytes (0.1-0.8) 10^3/uL 0.99 H Absolute Eosinophils (0.0-0.7) 10^3/uL 0.13 Absolute Basophils (0.0-0.2) 10^3/uL 0.05 VBG Lactate (0.6-1.4) mmol/L 1.1 Sodium (136-145) mmol/L 138 Potassium (3.5-5.1) mmol/L 3.6 Chloride (98-107) mmol/L 101 Carbon Dioxide (21.0-32.0) mmol/L 30.6 Anion Gap (3-11) mmol/L 6.4 BUN (7-18) mg/dL 22 H Creatinine (0.70-1.30) mg/dL 1.4 H Est GFR (CKD-EPI 2020) (mL/min/1.73m2) 69.34 Glucose (74-106) mg/dL 108 H Calcium (8.5-10.1) mg/dL 7.9 L Total Bilirubin (0.2-1.0) mg/dL 0.3 AST (15-37) U/L 22 ALT (16-63) U/L 34 Alkaline Phosphatase (46-116) U/L 114 Total Protein (6.4-8.2) g/dL 7.4 Albumin (3.4-5.0) g/dL 3.2 L Urine Color (Yellow) Yellow Urine Clarity (Clear) Clear Urine pH (5-8) 7.5 Ur Specific Knox (1.005-1.025) 1.015 Urine Protein (Neg-Trace) mg/dL Negative Urine Ketones (Negative) mg/dL Negative Urine Blood (Negative) Negative Urine Nitrite (Negative) Negative Urine Bilirubin (Negative) Negative Urine Urobilinogen (Up to 0.2) mg/dL 0.2 Ur Leukocyte Esterase (Negative) Negative Urine Glucose (Negative) mg/dL Negative Quality:SDOH Health Related Social Needs: Health related social needs transpo insecurity PFSH All Active Problems (Updated 11/06/23 @ 23:00 by ANDREW Coleman) Strain of right groin (Acute) Chronic abdominal pain (Acute) Nausea & vomiting (Acute) Abdominal pain (Acute) Nausea (Acute) Abdominal bloating (Acute) Hypocalcemia (Acute) Hypomagnesemia (Acute) Chest discomfort (Acute) Hypomagnesemia (Acute) Chronic constipation (Acute) Epiploic appendagitis (Acute) Hypokalemia (Acute) Abdominal pain, lower (Acute) Left lower quadrant abdominal pain (Acute) Abdominal pain (Acute) Bronchitis (Acute) 10/08/2023 - Dx @ [facility] E/R Chani MORALES Bronchitis (Acute) Hypocalcemia (Acute) Heart palpitations (Acute) Testicle lump (Acute) Hamstring tendinitis of left thigh (Acute) Pes anserine bursitis (Acute) Hypernatremia (Acute) Cervical radiculopathy (Acute) URI (upper respiratory infection) (Acute) Left-sided Flower's palsy (Acute) Neck pain on left side (Acute) Constipation (Acute) Grief reaction (Chronic) Opiate dependence, continuous (Acute) Cellulitis (Acute) Cholelithiases (Acute) 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 Possible 2' Methadone, Clnzpm (?). Surg eval (+)/No further action. History of electrolyte imbalance (Acute) Neck pain on left side (Acute) with shoulder, upper back pain.. torticollis, radiating into left hip/leg Pulmonary nodule 1 cm or greater in diameter (Chronic) Therapeutic opioid induced constipation (Acute) Sphincter of Oddi dysfunction (Chronic) Abnormal CT scan, kidney (Acute) Intrahepatic bile duct dilation (Acute) Common bile duct dilatation (Chronic) Has been dilated for quite some time, now more-so. Normal LFTs. Known gallstones. Abdominal pain (Acute) Iatrogenic hypocalcemia (Acute) Multiple endocrine neoplasia type I (Chronic) Chronic constipation (Chronic) Depression (Chronic) Hypomagnesemia (Chronic) Hypocalcemia (Chronic) Depression (Chronic) Suicidal ideation (Acute) Elevated parathyroid hormone (Acute) Family history of coronary arteriosclerosis (Chronic) Father of IL at 50, mother had IL at 42 Severe anxiety with panic (Chronic) Cellulitis (Acute) Medical History CKD (chronic kidney disease) stage 2, GFR 60-89 ml/min GFR 64-65, with Hx FLORESITA and GFR < 45 Primary hyperparathyroidism Complex medical condition Serious electrolyte imbalances, with gynecomastia, possible MEN Dx, CKD and anemia with baseline anxiety and Hx PTSD. Hypocalcemia Anxiety Depression Hyperlipidemia Family history of multiple endocrine neoplasia, type 1 PTSD (post-traumatic stress disorder) Per pt. states no triggers at this time. Surgical History H/O parathyroidectomy Family History Mother Anxiety Asthma Depression Sister Anxiety Depression Father Cancer lung & stomach Depression Diabetes Hypertension MEN 1 (multiple endocrine neoplasia) Social History Smoking/Tobacco Use Status: Never Smoking risk assessment performed?: Yes Alcohol Intake: never Drug use: Rarely Substance use type: does not use and former substance user Adopted: No Caregiver/Support person: No Foster care: No Household members: none Housing: apartment Number of Children: 0 Communication Needs: None Education Level: high school Do you need help understanding health information?: Never current occupation: [employer] Pets and animals: Yes (Ally) Pets and animals: dog(s) Sexually active: No Do you think of yourself as: straight/heterosexual Current gender identity: male What is your relationship status?: How often do you talk on the phone with friends or family?: twice per week How often do you get together with friends or relatives?: never Do you belong to any clubs or organized social groups?: no Panel score (0-1 are the most socially isolated patients): 0 What type of physical activity do you participate in: walking Duration: 15-30 minutes/day Frequency: 5-6 times per week Maryam/Muslim: Baptist Special maryam needs: No Seatbelt use: always Helmet use: Yes Helmet use: always Drive intox or ride w/intox test 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
--- NOTE | 2023-11-06 20:31 | DI.CT_ITS ---
Exam(s) CT ABDOMEN PELVIS W EXAM: CT ABDOMEN PELVIS W CLINICAL HISTORY: R inguinal severe pain. TECHNIQUE: Imaging Protocol: Axial computed tomography images with coronal and sagittal reformatted images were created and reviewed CONTRAST MATERIAL: Intravenous: Omnipaque 350 Contrast volume:100 ml Oral: / no COMPARISON: CT CT CHEST PE ABD PELVIS W from 07/04/[address] CHEST PE CTA from 09/27/[address] ABDOMEN PELVIS W from 03/06/[address] ABDOMEN PELVIS W from 06/20/[address] ABDOMEN PELVIS W from 10/15/2023 US US ABDOMEN RENAL from 11/04/2023 FINDINGS: ABDOMEN and PELVIS: Lung Bases: No acute findings. Liver: Normal density. No suspicious mass. Gallbladder and biliary tract: No radiodense calculus. No biliary dilation. Pancreas: Normal density. No abnormal calcifications or inflammatory process. No evidence of mass. Spleen: Normal. Kidneys: Normal size, contour and axis. No radiodense stones. No obstructive uropathy. No suspicious masses seen. circumscribed hypodensities in the upper and lower pole of the left kidney present on exams back to 2021. Mild interval increase since 2021. Findings likely represent cysts. Adrenal glands: No masses seen. Vasculature: Abdominal aorta non-dilated. Soft tissues: Small fat containing right inguinal hernia. No abnormal stranding in the fat or fluid. Is unchanged in appearance when compared to prior exam Bladder: No gross wall thickening. No calculi.No focal mass. Bowel: Large quantity of stool with the exception of the transverse colon through proximal descending colon. There is a question of wall thickening in this region versus lack of distension. Markedly r edundant sigmoid. Previously noted stranding at of adjacent to sigmoid not present currently. No ob struction. Appendix normal. Peritoneal cavity: No ascites. No focal collection. No mesenteric inflammatory response. Bones: Unremarkable for age. Reproductive organs: Unremarkable. Lymph nodes: No pathologically enlarged lymph nodes. IMPRESSION:: The colon again contains a large quantity of stool with the exception of the transverse and proximal descending colon. There is a question of wall thickening versus lack of distension. C linical correlation recommended. Hypodensities in left kidney are likely cysts and show slow interval growth compared with exams back to 2021. MRI could be performed for further evaluation. RADIATION DOSE DELIVERED: 1,678.99mGy.cm Total DLP DATA REPOSITORY: All CT scans at this facility are submitted to the National Radiology Data Registry (NRDR) Dose Index Registry (DIR) with the [employer] (ACR). RADIATION OPTIMIZATION: All CT scans at this facility use at least one of these dose optimization te chniques: automated exposure control; mA and/or kV adjustment per patient size (includes targeted exa ms where dose is matched to clinical indication); or iterative reconstruction.
[2023-11-06 20:53] LABS: Lactate 1.1 mmol/L (0.6-1.4)
[2023-11-06 20:57] LABS: Abs Immature Grans 0.03 10^3/uL (0.0-0.06); Absolute Basophil Count 0.05 10^3/uL (0.0-0.2); Absolute Eosinophil Count 0.13 10^3/uL (0.0-0.7); Absolute Lymphocyte Count 1.53 10^3/uL (1.2-3.4); Absolute Monocyte Count 0.99 10^3/uL (0.1-0.8); Absolute Neutrophil Count 6.01 10^3/uL (1.2-6.7); Basophils % 0.6 %; Eosinophils % 1.5 %; HGB 11.8 g/dL (13.5-17.5); Immature Grans % 0.3 %; Lymphocytes % 17.5 %; MCH 28.9 pg (27.0-33.0); MCHC 32.8 % (32.0-36.0); MCV 88 fL (80-95); MPV 11.1 fL (8.0-11.0); Monocytes % 11.3 %; Neutrophils % 68.8 %; Platelet Count 272 10^3/uL (130-400); RBC 4.08 10^6/uL (4.36-5.78); RDW 13.1 % (11.8-14.1); RDW-SD 41.7 fL; WBC 8.74 10^3/uL (4.4-10.8)
[2023-11-06] MEDS: Ketorolac 15 MG/ML VIAL IVP (20:57)
[2023-11-06] MEDS: ACETAMINOPHEN 1,000 MG/100 ML BTL 400 MG IVPB (20:57)
[2023-11-06 20:58] LABS: Bilirubin Negative (Negative); Blood Negative (Negative); Clarity Clear (Clear); Glucose Negative (Negative); Ketones Negative (Negative); Leukocyte Esterase Negative (Negative); Nitrite Negative (Negative); Specific Gravity 1.015 (1.005-1.025); Urobilinogen 0.2 mg/dL (Up to 0.2); pH 7.5 (5-8)
[2023-11-06 21:11] LABS: ALT 34 U/L (16-63); AST 22 U/L (15-37); Albumin 3.2 g/dL (3.4-5.0); Alkaline Phosphatase 114 U/L (46-116); Anion Gap 6.4 mmol/L (3-11); BUN 22 mg/dL (7-18); Bilirubin, Total 0.3 mg/dL (0.2-1.0); CO2 30.6 mmol/L (21.0-32.0); CREATININE 1.4 mg/dL (0.70-1.30); Calcium 7.9 mg/dL (8.5-10.1); Chloride 101 mmol/L (98-107); Estimated GFR 69.34 (mL/min/1.73m2); Glucose 108 mg/dL (74-106); Potassium 3.6 mmol/L (3.5-5.1); Sodium 138 mmol/L (136-145); Total Protein 7.4 g/dL (6.4-8.2)
[2023-11-06] MEDS: Omnipaque 350 MG/ML 100 ML BTL IJ (21:17)
[2023-11-06] MEDS: Normal Saline - Diluent 50 ML VIAL IJ (21:17)
--- NOTE | 2023-11-06 22:58 | DI.VRAD_ITS ---
PROCEDURE INFORMATION: Exam: CT Abdomen And Pelvis With Contrast Exam date and time: 11/06/2023 9:19 PM Age: 28 years old Clinical indication: Other: R inguinal severe pain TECHNIQUE: Imaging protocol: Computed tomography of the abdomen and pelvis with contrast. Contrast material: OMNI 350; Contrast volume: 100 ml; Contrast route: INTRAVENOUS (IV); COMPARISON: CT ABDOMEN PELVIS W 10/15/2023 12:54 AM FINDINGS: Liver: Normal. No mass. Gallbladder and bile ducts: Normal. No calcified stones. No ductal dilation. Pancreas: Normal. No ductal dilation. Spleen: Normal. No splenomegaly. Adrenal glands: Normal. No mass. Kidneys and ureters: Rounded 1.8 cm hypodense cortical lesion upper pole left kidney appears increased in size compared to study 10/15/2023. Right kidney appears normal. No hydronephrosis. Stomach and bowel: Significant fecal retention throughout the colon. Significant colonic redundancy. There appears to be long segment thickening of the distal transverse descending portions of the colon concerning for acute colitis. No evidence of bowel obstruction. Appendix: The appendix is visualized and appears normal. Intraperitoneal space: Unremarkable. No free air. No significant fluid collection. Vasculature: Unremarkable. No abdominal aortic aneurysm. Lymph nodes: Unremarkable. No enlarged lymph nodes. Urinary bladder: Unremarkable as visualized. Reproductive: Unremarkable as visualized. Bones/joints: Unremarkable. No acute fracture. Soft tissues: Unremarkable. IMPRESSION: 1. Findings concerning for acute colitis in the transverse and descending colon. Significant findings colonic constipation. 2. Apparent interval increase in size of 1.8 cm hypodense lesion upper pole left kidney. Recommend non-emergent MRI without and with contrast or non-emergent CT without and with contrast. MRI is preferred for masses under 1.5 cm. Reference: Esther GRIDER, Management of the Incidental Renal Mass on CT: A White Paper of the ACR Incidental Findings Committee, JACR 2018. Dictated and Authenticated by: Andrei Cantu MD. Ordering:RAMANA Lockhart MD
[2023-11-06] MEDS: Cyclobenzaprine 10 MG TAB, 3 TABS/BTL PO (23:14)
[2023-11-06] MEDS: Ketorolac 10 MG TAB PO (23:17)
[2023-11-06 23:18] VITALS: BP 130/72; PULSE 110; RESP 16; TEMP 36.5; O2SAT 98
== END 2023-11-06 23:18 | disposition home or self-care (01) ==
PROVIDERS: Emergency Provider Physician Assistant; PCP Family Medicine
DX: S39.011A Strain of muscle, fascia and tendon of abdomen, initial encounter (principal); E89.2 Postprocedural hypoparathyroidism; N18.2 Chronic kidney disease, stage 2 (mild); X58.XXXA Exposure to other specified factors, initial encounter
CPT/HCPCS: 36415; 80053; 96365; 99285; 74177; 81003; 83605; 85025; 99284; J0131; J1885; J3490

== ENCOUNTER 2023-11-07 23:09 | Emergency (ER) | payer OTHER, MEDICAID, SELFPAY ==
[2023-11-07 23:13] VITALS: BP 117/76; PULSE 111; RESP 18; TEMP 36.9; O2SAT 97
[2023-11-07 23:15] VITALS: RESP 18
--- NOTE | 2023-11-07 23:15 | RT.EKG_ITS ---
APPROVED REPORT Exam: Resting ECG Reason for Exam: fast HR Patient Location: E HR:90 bpm ECG Measurements Heart Rate 90 AXIS IA 179 P 39 QRSd 97 QRS 50 QT 386 T 12 QTc 472 Conclusion Sinus rhythm...normal P axis, V-rate 60- [address] segment or T wave abnormalitites to suggest occluisve SD
--- NOTE | 2023-11-07 23:15 | DI.RAD_ITS ---
Exam(s) XR CHEST 2V PA LATERAL EXAM: XR CHEST 2V PA LATERAL CLINICAL HISTORY: chest pain TECHNIQUE: 2D digital imaging was performed. Two views. COMPARISON: CR,XR XR CHEST 2V PA LATERAL from 10/19/2023 FINDINGS: HEART: Normal size. Aorta: Not dilated. PULMONARY VASCULATURE: Normal. LUNGS: Clear. PLEURAL SPACE: No pleural effusion or pneumothorax. BONE:Unremarkable for age. Soft tissues: Unremarkable. IMPRESSION: No acute abnormality. DATA REPOSITORY: RADIATION DOSE DELIVERED:
--- NOTE | 2023-11-07 23:19 | W.ED.GENAD ---
Discharge Plan Disposition Patient Disposition: Home Condition: Good Discharge Details Clinical Impression: Chest pain Primary Care Provider: Brendon Vivar ED Provider: Kimberli Martinez Home Meds and New Rx's Prescriptions: Continued gabapentin 300 mg capsule 300 mg PO BID Qty: 180 3RF cyclobenzaprine 10 mg tablet 10 mg PO TID PRN (Reason: muscle spasm) Qty: 30 3RF methadone 10 mg/5 mL solution 105 mg PO QAM calcitriol 0.5 mcg capsule 0.5 mcg PO BID Qty: 360 3RF Hold Instructions: Resume on 06/15/22. diclofenac sodium 1 % gel 4 g topical QID Qty: 100 6RF Rx Instructions: apply to single knee, ankle, foot; for foot includes sole/toes/top of foot polyethylene glycol 3350 17 gram/dose powder 17 g PO DAILY omeprazole 40 mg capsule,delayed release(DR/EC) 40 mg PO DAILY Qty: 90 3RF venlafaxine 75 mg capsule,extended release 24hr 75 mg PO DAILY Qty: 90 0RF clonazepam 1 mg tablet 1 mg PO BID Qty: 56 1RF calcium carbonate [Tums] 200 mg calcium (500 mg) tablet,chewable 2,000 mg PO BID Hold Instructions: Resume on 05/12/23. Please hold your nightly dose tonight and your a.m. dose tomorrow morning. prochlorperazine maleate 5 mg tablet 5 mg PO TID PRN (Reason: acute nausea) Qty: 30 0RF magnesium gluconate 27 mg magnesium (500 mg) tablet 27 mg PO BID Qty: 60 3RF ondansetron 4 mg tablet,disintegrating 4 mg PO Q8H PRN (Reason: nausea and vomiting) Qty: 20 0RF simethicone 125 mg tablet,chewable 125 mg PO QID PRN (Reason: abdominal distention) Qty: 20 0RF Discharge Instructions Instructions: Chest Pain (ED) Additional Instructions: Call your primary care doctor to schedule an appointment for as soon as possible to follow up on your visit today, no later than early next week. Return to the emergency department for new or worsening symptoms. Referrals: Brendon Vivar DO [Primary Care Provider] - [facility] General Mode of arrival: ambulatory. Date/Time Provider Initiated Documentation: 11/07/23 23:14. Limitations to Documentation: no limitations. Information obtained by: patient and old records reviewed. HPI Narrative: 28yo M with hx HTN, hyperparathyroidism, CKD, presenting with chest tightness and upper/arm and jaw pain. Symptoms started about an hour and half prior to arrival; upper chest 'tightness' that radiates to both arms and into his jaw on both sides. Feels worse when he takes a deep breath. Was at rest when symptoms started. Thinks it might be related to his anxiety though he does not feel anxious currently. Recently every day it's something else, multiple ED visits in the past two weeks and saw his PCP today to discuss anxiety. Does have a family hx of early cardiac disease (parents with MIs in 30's and 40's). No family history of suddden unexpected . He is otherwise in his usual state of health with no fevers, chills, rash, nausea, vomiting, abdominal pain, numbness, tingling, weakness, or other concerns. Related Data Home Medications Medication Instructions Recorded Confirmed calcium carbonate (Tums) 2,000 mg PO BID 02/02/23 11/07/23 calcitriol 0.5 mcg capsule 0.5 mcg PO BID #360 caps 04/21/23 11/07/23 diclofenac sodium 1 % topical gel 4 g topical QID #100 grams 04/21/23 11/07/23 methadone 10 mg/5 mL oral solution 105 mg PO QAM 06/12/23 11/07/23 polyethylene glycol 3350 17 17 g PO DAILY 06/12/23 11/07/23 gram/dose oral powder gabapentin 300 mg capsule 300 mg PO BID #180 caps 06/23/23 11/07/23 omeprazole 40 mg capsule,delayed 40 mg PO DAILY #90 caps 07/21/23 11/07/23 release cyclobenzaprine 10 mg tablet 10 mg PO TID PRN muscle spasm #30 08/18/23 11/07/23 tabs prochlorperazine maleate 5 mg 5 mg PO TID PRN acute nausea #30 09/06/23 11/07/23 tablet tabs magnesium gluconate 27 mg 27 mg PO BID #60 tabs 10/27/23 11/07/23 magnesium (500 mg) tablet ondansetron 4 mg disintegrating 4 mg PO Q8H PRN nausea and 10/30/23 11/07/23 tablet vomiting #20 tabs simethicone 125 mg chewable tablet 125 mg PO QID PRN abdominal 10/30/23 11/07/23 distention #20 tabs clonazepam 1 mg tablet 1 mg PO BID #56 tabs 11/07/23 11/07/23 venlafaxine 75 mg capsule,extended 75 mg PO DAILY #90 caps 11/07/23 11/07/23 release 24 hr Previous Rx's Medication Instructions Recorded calcitriol 0.5 mcg capsule 0.5 mcg PO BID #360 caps 04/21/23 diclofenac sodium 1 % topical gel 4 g topical QID #100 grams 04/21/23 gabapentin 300 mg capsule 300 mg PO BID #180 caps 06/23/23 omeprazole 40 mg capsule,delayed 40 mg PO DAILY #90 caps 07/21/23 release cyclobenzaprine 10 mg tablet 10 mg PO TID PRN muscle spasm #30 08/18/23 tabs prochlorperazine maleate 5 mg 5 mg PO TID PRN acute nausea #30 09/06/23 tablet tabs magnesium gluconate 27 mg 27 mg PO BID #60 tabs 10/27/23 magnesium (500 mg) tablet ondansetron 4 mg disintegrating 4 mg PO Q8H PRN nausea and 10/30/23 tablet vomiting #20 tabs simethicone 125 mg chewable tablet 125 mg PO QID PRN abdominal 10/30/23 distention #20 tabs clonazepam 1 mg tablet 1 mg PO BID #56 tabs 11/07/23 venlafaxine 75 mg capsule,extended 75 mg PO DAILY #90 caps 11/07/23 release 24 hr Allergies Allergy/AdvReac Type Severity Reaction Status Date / Time codeine Allergy Intermediate pass out Verified 11/07/23 23:17 Penicillins Allergy Skin Rash Verified 11/07/23 23:17 amoxicillin AdvReac Intermediate Nausea Verified 11/07/23 23:17 dextromethorphan AdvReac Intermediate Other (See Verified 11/07/23 23:17 [From NyQuil] Comment) doxylamine [From NyQuil] AdvReac Intermediate Other (See Verified 11/07/23 23:17 Comment) pseudoephedrine [From NyQuil] AdvReac Intermediate Other (See Verified 11/07/23 23:17 Comment) General Stated Complaint: Chest Pain ADRIANA: 3 Review of Systems Narrative: see HPI Exam Narrative Exam Narrative: General: Alert, well appearing, well nourished, in no acute distress. Head: Normocephalic, atraumatic Neck: Trachea midline, ?Neck supple. ENT: ?MMM.? Cardiac: ?RRR, no murmurs appreciated Resp: No respiratory distress. CTAB. Abd: ?Soft, non-distended, nontender : ?No suprapubic tenderness. Extremities: ?No deformities.? No peripheral edema. Neurologic: GCS 15. ? Moves all extremities freely against gravity Course Vital Signs Vital signs: Vital Signs Temperature 36.9 C 11/07/23 23:13 Pulse 111 H 11/07/23 23:13 Respiratory Rate 18 11/07/23 23:13 Blood Pressure 117/76 11/07/23 23:13 Pulse Oximetry 97 11/07/23 23:13 Temperature 36.9 C 11/07/23 23:13 Pulse 111 H 11/07/23 23:13 Respiratory Rate 18 11/07/23 23:15 Respiratory Effort Normal, Non-Labored 11/07/23 23:15 Respiratory Depth Normal 11/07/23 23:15 Blood Pressure 117/76 11/07/23 23:13 Pulse Oximetry 97 11/07/23 23:13 Pain Level 5 11/07/23 23:13 Medical Decision Making 28yo M with hx HTN, hyperparathyroidism, CKD, presenting with chest tightness and upper/arm and jaw pain. Symptoms started about an hour and half prior to arrival; upper chest 'tightness' that radiates to both arms and into his jaw on both sides. ED visit notes reviewed: 10/26 muscle spasm, 10/28 palpitations, 10/29 abdominal pain, 10/30 abdominal pain, 10/31 N/V, 11/03 RUQ pain, 11/05 right thigh pain. Had clinic visit for anxiety today 11/06, note reviewed. Slightly tachycardiac on arrival at 111, vital signs otherwise reassuring. Benign physical exam. Description of symptoms is not highly suspicious for acute coronary syncrome however despite his age he does have some significant risk factors. Most likely there is a component of anxiety/somatization will evaluate further with EKG, CXR, and labs. -EKG NSR with rate of 90, appropriate intervals, no ST segment or T wave abnormalities to suggest occlusive WA. -Labs reviewed as below, CBC with mild anemia at baseline with Hg 11.3, CMP with mild hypocalcemia at 7.7 which on [facility] record review is not abnormal for him. I-raul is a send out; will give single extra dose of PO calcium here and advised PCP followup for this. Not symptomatic at this time. Ddimer negative (would not further pursue pulmonary embolism with CT imaging). Troponin negative. HEART score 2 (low risk) for risk factors; would not further pursue acute coronary syndrome with repeat troponin, telemtery, admission, etc. -CXR independently reviewed, no focal pneumonia or pneumothorax on my view, agree with radiology read below. On reassessment he remains well appearing with reassuring vital signs. Discharged home; discharge instructions and return precautions were reviewed with patient who verbalized understanding. All questions were answered and he is in full agreement with the plan. Medical Records Medical records reviewed: Yes I reviewed the patient's medical records. Imaging Data Radiologic Study: Imaging: X-Ray Radiologist's impression: IMPRESSION: No definite acute cardiopulmonary disease Lab Data Lab results reviewed: Yes I reviewed the patient's lab results. Labs: Laboratory Tests Range/Units 11/07/23 23:37 WBC (4.4-10.8) 10^3/uL 5.51 RBC (4.36-5.78) 10^6/uL 3.98 L Hgb (13.5-17.5) g/dL 11.3 L Hct (40.0-50.0) % 35.1 L MCV (80-95) fL 88 MCH (27.0-33.0) pg 28.4 MCHC (32.0-36.0) % 32.2 RDW (11.8-14.1) % 13.0 Plt Count (130-400) 10^3/uL 256 MPV (8.0-11.0) fL 10.8 Immature Gran % % 0.2 Neutrophils % % 52.1 Lymphocytes % % 33.2 Monocytes % % 10.2 Eosinophils % % 3.6 Basophils % % 0.7 Nucleated RBC % (0.0-0.3) % 0.0 Absolute Neutrophils (1.2-6.7) 10^3/uL 2.87 Absolute Lymphocytes (1.2-3.4) 10^3/uL 1.83 Absolute Monocytes (0.1-0.8) 10^3/uL 0.56 Absolute Eosinophils (0.0-0.7) 10^3/uL 0.20 Absolute Basophils (0.0-0.2) 10^3/uL 0.04 D-Dimer (<500) ng/mlFEU 246 Sodium (136-145) mmol/L 139 Potassium (3.5-5.1) mmol/L 3.9 Chloride (98-107) mmol/L 103 Carbon Dioxide (21.0-32.0) mmol/L 30.0 Anion Gap (3-11) mmol/L 6.0 BUN (7-18) mg/dL 20 H Creatinine (0.70-1.30) mg/dL 1.3 Est GFR (CKD-EPI 2020) (mL/min/1.73m2) 75.79 Glucose (74-106) mg/dL 112 H Calcium (8.5-10.1) mg/dL 7.7 L Total Bilirubin (0.2-1.0) mg/dL 0.2 AST (15-37) U/L 25 ALT (16-63) U/L 37 Alkaline Phosphatase (46-116) U/L 115 Troponin I (< or =60) ng/L < 50 Total Protein (6.4-8.2) g/dL 7.3 Albumin (3.4-5.0) g/dL 3.1 L Quality:SDOH Health Related Social Needs: Health related social needs transpo insecurity PFSH All Active Problems (Updated 11/08/23 @ 00:03 by Kimberli Martinez MD) Chest pain (Acute) Strain of right groin (Acute) Chronic abdominal pain (Acute) Nausea & vomiting (Acute) Abdominal pain (Acute) Nausea (Acute) Abdominal bloating (Acute) Hypocalcemia (Acute) Hypomagnesemia (Acute) Chest discomfort (Acute) Hypomagnesemia (Acute) Chronic constipation (Acute) Epiploic appendagitis (Acute) Hypokalemia (Acute) Abdominal pain, lower (Acute) Left lower quadrant abdominal pain (Acute) Abdominal pain (Acute) Bronchitis (Acute) 10/08/2023 - Dx @ [facility] E/R Chani Sevilla PA Bronchitis (Acute) Testicle lump (Acute) Hamstring tendinitis of left thigh (Acute) Pes anserine bursitis (Acute) Hypernatremia (Acute) Cervical radiculopathy (Acute) URI (upper respiratory infection) (Acute) Left-sided Flower's palsy (Acute) Neck pain on left side (Acute) Constipation (Acute) Grief reaction (Chronic) Opiate dependence, continuous (Acute) Cellulitis (Acute) Cholelithiases (Acute) 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 Possible 2' Methadone, Clnzpm (?). Surg eval (+)/No further action. History of electrolyte imbalance (Acute) Neck pain on left side (Acute) with shoulder, upper back pain.. torticollis, radiating into left hip/leg Pulmonary nodule 1 cm or greater in diameter (Chronic) Therapeutic opioid induced constipation (Acute) Sphincter of Oddi dysfunction (Chronic) Abnormal CT scan, kidney (Acute) Intrahepatic bile duct dilation (Acute) Common bile duct dilatation (Chronic) Has been dilated for quite some time, now more-so. Normal LFTs. Known gallstones. Abdominal pain (Acute) Iatrogenic hypocalcemia (Acute) Multiple endocrine neoplasia type I (Chronic) Chronic constipation (Chronic) Depression (Chronic) Hypomagnesemia (Chronic) Hypocalcemia (Chronic) Depression (Chronic) Suicidal ideation (Acute) Elevated parathyroid hormone (Acute) Family history of coronary arteriosclerosis (Chronic) Father of WA at 50, mother had WA at 42 Severe anxiety with panic (Chronic) Cellulitis (Acute) Medical History CKD (chronic kidney disease) stage 2, GFR 60-89 ml/min GFR 64-65, with Hx FLORESITA and GFR < 45 Primary hyperparathyroidism Complex medical condition Serious electrolyte imbalances, with gynecomastia, possible MEN Dx, CKD and anemia with baseline anxiety and Hx PTSD. Hypocalcemia Anxiety Depression Hyperlipidemia Family history of multiple endocrine neoplasia, type 1 PTSD (post-traumatic stress disorder) Per pt. states no triggers at this time. Surgical History H/O parathyroidectomy Family History Mother Anxiety Asthma Depression Sister Anxiety Depression Father Cancer lung & stomach Depression Diabetes Hypertension MEN 1 (multiple endocrine neoplasia) Social History Smoking/Tobacco Use Status: Never Smoking risk assessment performed?: Yes Alcohol Intake: never Drug use: Rarely Substance use type: does not use and former substance user Adopted: No Caregiver/Support person: No Foster care: No Household members: none Housing: apartment Number of Children: 0 Communication Needs: None Education Level: high school Do you need help understanding health information?: Never current occupation: [employer] Pets and animals: Yes (Ally) Pets and animals: dog(s) Sexually active: No Do you think of yourself as: straight/heterosexual Current gender identity: male What is your relationship status?: How often do you talk on the phone with friends or family?: twice per week How often do you get together with friends or relatives?: never Do you belong to any clubs or organized social groups?: no Panel score (0-1 are the most socially isolated patients): 0 What type of physical activity do you participate in: walking Duration: 15-30 minutes/day Frequency: 5-6 times per week Maryam/Jain: Synagogue Special maryam needs: No Seatbelt use: always Helmet use: Yes Helmet use: always Drive intox or ride w/intox local combination 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
[2023-11-07 23:43] LABS: Abs Immature Grans 0.01 10^3/uL (0.0-0.06); Absolute Basophil Count 0.04 10^3/uL (0.0-0.2); Absolute Lymphocyte Count 1.83 10^3/uL (1.2-3.4); Absolute Monocyte Count 0.56 10^3/uL (0.1-0.8); Absolute Neutrophil Count 2.87 10^3/uL (1.2-6.7); Basophils % 0.7 %; Eosinophils % 3.6 %; HCT 35.1 % (40.0-50.0); HGB 11.3 g/dL (13.5-17.5); Immature Grans % 0.2 %; Lymphocytes % 33.2 %; MCH 28.4 pg (27.0-33.0); MCHC 32.2 % (32.0-36.0); MCV 88 fL (80-95); MPV 10.8 fL (8.0-11.0); Monocytes % 10.2 %; Neutrophils % 52.1 %; Platelet Count 256 10^3/uL (130-400); RBC 3.98 10^6/uL (4.36-5.78); WBC 5.51 10^3/uL (4.4-10.8)
[2023-11-08 00:01] LABS: ALT 37 U/L (16-63); AST 25 U/L (15-37); Albumin 3.1 g/dL (3.4-5.0); Alkaline Phosphatase 115 U/L (46-116); BUN 20 mg/dL (7-18); Bilirubin, Total 0.2 mg/dL (0.2-1.0); CREATININE 1.3 mg/dL (0.70-1.30); Calcium 7.7 mg/dL (8.5-10.1); Chloride 103 mmol/L (98-107); Estimated GFR 75.79 (mL/min/1.73m2); Glucose 112 mg/dL (74-106); Potassium 3.9 mmol/L (3.5-5.1); Sodium 139 mmol/L (136-145); Total Protein 7.3 g/dL (6.4-8.2); Troponin I < 50 ng/L (< or =60)
[2023-11-08 00:11] LABS: D-Dimer 246 ng/mlFEU (<500)
[2023-11-08 00:23] VITALS: BP 117/82; PULSE 77; RESP 18; O2SAT 95
--- NOTE | 2023-11-08 00:28 | DI.VRAD_ITS ---
PROCEDURE INFORMATION: Exam: XR Chest Exam date and time: 11/07/2023 11:48 PM Age: 28 years old Clinical indication: Chest wall pain; Additional info: Chest pain TECHNIQUE: Imaging protocol: Radiologic exam of the chest. Views: 2 views. COMPARISON: CR XR CHEST 2V PA LATERAL 10/19/2023 1:17 AM FINDINGS: Lungs: No consolidation. Pleural spaces: No significant pleural effusion. No pneumothorax. Heart/Mediastinum: No cardiomegaly. Bones/joints: No displaced fracture. Soft tissues: Unremarkable. IMPRESSION: No definite acute cardiopulmonary disease. Dictated and Authenticated by: Aris Novak MD. Ordering:SHLEBY Ag MD
[2023-11-08] MEDS: Calcium Carbonate *TUMS* 500 MG CHEW 1500 MG PO (00:52)
== END 2023-11-08 00:57 | disposition home or self-care (01) ==
PROVIDERS: Emergency Provider Student in an Organized Health Care Education/Training Program; PCP Family Medicine
DX: M79.601 Pain in right arm (principal); M79.602 Pain in left arm; R07.9 Chest pain, unspecified; R68.84 Jaw pain
CPT/HCPCS: 80053; 93005; 99283; 71046; 84484; 85025; 85379; 93010

== ENCOUNTER 2023-11-14 19:40 | Emergency (ER) | payer OTHER, MEDICAID, SELFPAY ==
[2023-11-14 19:42] VITALS: BP 121/66; PULSE 100; RESP 16; TEMP 36.8; O2SAT 100
--- NOTE | 2023-11-15 16:43 | W.ED.GENAD ---
Discharge Plan Disposition Patient Disposition: Home Condition: Stable Discharge Details Clinical Impression: Congestion of upper respiratory tract Primary Care Provider: Brendon Vivar ED Provider: Luh Tsai Home Meds and New Rx's Prescriptions: Continued gabapentin 300 mg capsule 300 mg PO BID Qty: 180 3RF cyclobenzaprine 10 mg tablet 10 mg PO TID PRN (Reason: muscle spasm) Qty: 30 3RF methadone 10 mg/5 mL solution 105 mg PO QAM calcitriol 0.5 mcg capsule 0.5 mcg PO BID Qty: 360 3RF Hold Instructions: Resume on 06/15/22. diclofenac sodium 1 % gel 4 g topical QID Qty: 100 6RF Rx Instructions: apply to single knee, ankle, foot; for foot includes sole/toes/top of foot polyethylene glycol 3350 17 gram/dose powder 17 g PO DAILY omeprazole 40 mg capsule,delayed release(DR/EC) 40 mg PO DAILY Qty: 90 3RF venlafaxine 75 mg capsule,extended release 24hr 75 mg PO DAILY Qty: 90 0RF clonazepam 1 mg tablet 1 mg PO BID Qty: 56 1RF calcium carbonate [Tums] 200 mg calcium (500 mg) tablet,chewable 2,000 mg PO BID Hold Instructions: Resume on 05/12/23. Please hold your nightly dose tonight and your a.m. dose tomorrow morning. prochlorperazine maleate 5 mg tablet 5 mg PO TID PRN (Reason: acute nausea) Qty: 30 0RF magnesium gluconate 27 mg magnesium (500 mg) tablet 27 mg PO BID Qty: 60 3RF ondansetron 4 mg tablet,disintegrating 4 mg PO Q8H PRN (Reason: nausea and vomiting) Qty: 20 0RF simethicone 125 mg tablet,chewable 125 mg PO QID PRN (Reason: abdominal distention) Qty: 20 0RF Discharge Instructions Additional Instructions: take mucinex DM daily chamomile tea with honey and lemon three times daily to help break up mucous 8, 8oz glasses of water daily humidifier in your room return earlier with shortness of breath or with new or worsening complaints Referrals: Brendon Vivar DO [Primary Care Provider] - Discharge Data Discharge Date/Time-TO BE ENTERED AT DEPARTURE: 11/14/23 20:37 HPI General Date/Time Provider Initiated Documentation: 11/14/23 20:05. HPI Narrative: This 28-year-old male presents with report of upper respiratory congestion which started 2 days prior to arrival. Denies any fever or chills. Denies any shortness of breath. Denies any pain in chest. Has not attempted any [id number] medications. Denies any blood in sputum. Denies any calf pain or swelling. Denies known sick contacts. Related Data Home Medications Medication Instructions Recorded Confirmed calcium carbonate (Tums) 2,000 mg PO BID 02/02/23 11/14/23 calcitriol 0.5 mcg capsule 0.5 mcg PO BID #360 caps 04/21/23 11/14/23 diclofenac sodium 1 % topical gel 4 g topical QID #100 grams 04/21/23 11/14/23 methadone 10 mg/5 mL oral solution 105 mg PO QAM 06/12/23 11/14/23 polyethylene glycol 3350 17 17 g PO DAILY 06/12/23 11/14/23 gram/dose oral powder gabapentin 300 mg capsule 300 mg PO BID #180 caps 06/23/23 11/14/23 omeprazole 40 mg capsule,delayed 40 mg PO DAILY #90 caps 07/21/23 11/14/23 release cyclobenzaprine 10 mg tablet 10 mg PO TID PRN muscle spasm #30 08/18/23 11/14/23 tabs prochlorperazine maleate 5 mg 5 mg PO TID PRN acute nausea #30 09/06/23 11/14/23 tablet tabs magnesium gluconate 27 mg 27 mg PO BID #60 tabs 10/27/23 11/14/23 magnesium (500 mg) tablet ondansetron 4 mg disintegrating 4 mg PO Q8H PRN nausea and 10/30/23 11/14/23 tablet vomiting #20 tabs simethicone 125 mg chewable tablet 125 mg PO QID PRN abdominal 10/30/23 11/14/23 distention #20 tabs clonazepam 1 mg tablet 1 mg PO BID #56 tabs 11/07/23 11/14/23 venlafaxine 75 mg capsule,extended 75 mg PO DAILY #90 caps 11/07/23 11/14/23 release 24 hr Previous Rx's Medication Instructions Recorded calcitriol 0.5 mcg capsule 0.5 mcg PO BID #360 caps 04/21/23 diclofenac sodium 1 % topical gel 4 g topical QID #100 grams 04/21/23 gabapentin 300 mg capsule 300 mg PO BID #180 caps 06/23/23 omeprazole 40 mg capsule,delayed 40 mg PO DAILY #90 caps 07/21/23 release cyclobenzaprine 10 mg tablet 10 mg PO TID PRN muscle spasm #30 08/18/23 tabs prochlorperazine maleate 5 mg 5 mg PO TID PRN acute nausea #30 09/06/23 tablet tabs magnesium gluconate 27 mg 27 mg PO BID #60 tabs 10/27/23 magnesium (500 mg) tablet ondansetron 4 mg disintegrating 4 mg PO Q8H PRN nausea and 10/30/23 tablet vomiting #20 tabs simethicone 125 mg chewable tablet 125 mg PO QID PRN abdominal 10/30/23 distention #20 tabs clonazepam 1 mg tablet 1 mg PO BID #56 tabs 11/07/23 venlafaxine 75 mg capsule,extended 75 mg PO DAILY #90 caps 11/07/23 release 24 hr Allergies Allergy/AdvReac Type Severity Reaction Status Date / Time codeine Allergy Intermediate pass out Verified 11/14/23 19:48 Penicillins Allergy Skin Rash Verified 11/14/23 19:48 amoxicillin AdvReac Intermediate Nausea Verified 11/14/23 19:48 dextromethorphan AdvReac Intermediate Other (See Verified 11/14/23 19:48 [From NyQuil] Comment) doxylamine [From NyQuil] AdvReac Intermediate Other (See Verified 11/14/23 19:48 Comment) pseudoephedrine [From NyQuil] AdvReac Intermediate Other (See Verified 11/14/23 19:48 Comment) General Stated Complaint: [facility] ADRIANA: 4 Exam Narrative Exam Narrative: 28-year-old male in no acute distress, lungs clear to auscultation, alert and oriented x 4, no respiratory distress, cardiac rate rhythm regular Course Vital Signs Vital signs: Vital Signs Temperature 36.8 C 11/14/23 19:42 Pulse 100 H 11/14/23 19:42 Respiratory Rate 16 11/14/23 19:42 Blood Pressure 121/66 11/14/23 19:42 Pulse Oximetry 100 11/14/23 19:42 Temperature 36.8 C 11/14/23 19:42 Temperature Source Temporal Artery Scan 11/14/23 19:42 Pulse 100 H 11/14/23 19:42 Respiratory Rate 16 11/14/23 19:42 Respiratory Effort Normal 11/14/23 19:46 Respiratory Depth Normal 11/14/23 19:46 Respiratory Pattern Normal 11/14/23 19:46 Blood Pressure 121/66 11/14/23 19:42 Pulse Oximetry 100 11/14/23 19:42 Oxygen Delivery Method Room Air 11/14/23 19:42 Oxygen Flow Rate 0 11/14/23 19:42 Pain Level 2 11/14/23 19:42 Medical Decision Making 28-year-old male presenting for upper respiratory congestion. Lungs are clear to auscultation and oxygen is 100% on room air without any respiratory distress. I see no indication for imaging or diagnostic labs. Supportive care with Mucinex, albuterol inhaler as needed, honey and lemon and hot tea recommended. Return precautions reviewed and patient expressed understanding Quality:SDOH Health Related Social Needs: Health related social needs transpo insecurity PFSH All Active Problems (Updated 11/15/23 @ 00:01 by HAMMAD WILEY) Congestion of upper respiratory tract (Acute) Chest pain (Acute) Strain of right groin (Acute) Chronic abdominal pain (Acute) Nausea & vomiting (Acute) Abdominal pain (Acute) Nausea (Acute) Abdominal bloating (Acute) Hypocalcemia (Acute) Hypomagnesemia (Acute) Chest discomfort (Acute) Hypomagnesemia (Acute) Bronchitis (Acute) 10/08/2023 - Dx @ [facility] E/R Chani MORALES Bronchitis (Acute) Testicle lump (Acute) Hamstring tendinitis of left thigh (Acute) Pes anserine bursitis (Acute) Hypernatremia (Acute) Cervical radiculopathy (Acute) URI (upper respiratory infection) (Acute) Left-sided Flower's palsy (Acute) Neck pain on left side (Acute) Constipation (Acute) Grief reaction (Chronic) Opiate dependence, continuous (Acute) Cellulitis (Acute) Cholelithiases (Acute) 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 Possible 2' Methadone, Clnzpm (?). Surg eval (+)/No further action. History of electrolyte imbalance (Acute) Neck pain on left side (Acute) with shoulder, upper back pain.. torticollis, radiating into left hip/leg Pulmonary nodule 1 cm or greater in diameter (Chronic) Therapeutic opioid induced constipation (Acute) Sphincter of Oddi dysfunction (Chronic) Abnormal CT scan, kidney (Acute) Intrahepatic bile duct dilation (Acute) Common bile duct dilatation (Chronic) Has been dilated for quite some time, now more-so. Normal LFTs. Known gallstones. Abdominal pain (Acute) Iatrogenic hypocalcemia (Acute) Multiple endocrine neoplasia type I (Chronic) Chronic constipation (Chronic) Depression (Chronic) Hypomagnesemia (Chronic) Hypocalcemia (Chronic) Depression (Chronic) Suicidal ideation (Acute) Elevated parathyroid hormone (Acute) Family history of coronary arteriosclerosis (Chronic) Father of OH at 50, mother had OH at 42 Severe anxiety with panic (Chronic) Cellulitis (Acute) Medical History CKD (chronic kidney disease) stage 2, GFR 60-89 ml/min GFR 64-65, with Hx FLORESITA and GFR < 45 Primary hyperparathyroidism Complex medical condition Serious electrolyte imbalances, with gynecomastia, possible MEN Dx, CKD and anemia with baseline anxiety and Hx PTSD. Hypocalcemia Anxiety Depression Hyperlipidemia Family history of multiple endocrine neoplasia, type 1 PTSD (post-traumatic stress disorder) Per pt. states no triggers at this time. Surgical History H/O parathyroidectomy Family History Mother Anxiety Asthma Depression Sister Anxiety Depression Father Cancer lung & stomach Depression Diabetes Hypertension MEN 1 (multiple endocrine neoplasia) Social History Smoking/Tobacco Use Status: Never Smoking risk assessment performed?: Yes Alcohol Intake: never Drug use: Rarely Substance use type: does not use and former substance user Adopted: No Caregiver/Support person: No Foster care: No Household members: none Housing: apartment Number of Children: 0 Communication Needs: None Education Level: high school Do you need help understanding health information?: Never current occupation: [employer] Pets and animals: Yes (Ally) Pets and animals: dog(s) Sexually active: No Do you think of yourself as: straight/heterosexual Current gender identity: male What is your relationship status?: How often do you talk on the phone with friends or family?: twice per week How often do you get together with friends or relatives?: never Do you belong to any clubs or organized social groups?: no Panel score (0-1 are the most socially isolated patients): 0 What type of physical activity do you participate in: walking Duration: 15-30 minutes/day Frequency: 5-6 times per week Maryam/Jehovah'S Witness: Mor[employer] Special maryam needs: No Seatbelt use: always Helmet use: Yes Helmet use: always Drive intox or ride w/intox drive away 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
== END 2023-11-14 20:37 | disposition home or self-care (01) ==
PROVIDERS: Emergency Provider Physician Assistant; PCP Family Medicine
DX: R05.9 Cough, unspecified (principal); R09.81 Nasal congestion; N18.2 Chronic kidney disease, stage 2 (mild); E78.5 Hyperlipidemia, unspecified; Z79.899 Other long term (current) drug therapy
CPT/HCPCS: 99282; 99283

== ENCOUNTER 2023-11-17 11:27 | Emergency (ER) | payer OTHER, SELFPAY ==
[2023-11-17 11:35] VITALS: BP 155/97; PULSE 123; RESP 24; TEMP 37.4; O2SAT 99
--- NOTE | 2023-11-17 11:57 | ED.GENADUL_ITS ---
Discharge Plan Disposition Patient Disposition: Home Condition: Stable Discharge Details Clinical Impression: Elevated TSH, Hypomagnesemia Primary Care Provider: Brendon Vivar ED Provider: Antoinette Templeton Home Meds and New Rx's Prescriptions: Continued gabapentin 300 mg capsule 300 mg PO BID Qty: 180 3RF cyclobenzaprine 10 mg tablet 10 mg PO TID PRN (Reason: muscle spasm) Qty: 30 3RF methadone 10 mg/5 mL solution 105 mg PO QAM calcitriol 0.5 mcg capsule 0.5 mcg PO BID Qty: 360 3RF Hold Instructions: Resume on 06/15/22. diclofenac sodium 1 % gel 4 g topical QID Qty: 100 6RF Rx Instructions: apply to single knee, ankle, foot; for foot includes sole/toes/top of foot polyethylene glycol 3350 17 gram/dose powder 17 g PO DAILY omeprazole 40 mg capsule,delayed release(DR/EC) 40 mg PO DAILY Qty: 90 3RF venlafaxine 75 mg capsule,extended release 24hr 75 mg PO DAILY Qty: 90 0RF clonazepam 1 mg tablet 1 mg PO BID Qty: 56 1RF calcium carbonate [Tums] 200 mg calcium (500 mg) tablet,chewable 2,000 mg PO BID Hold Instructions: Resume on 05/12/23. Please hold your nightly dose tonight and your a.m. dose tomorrow morning. prochlorperazine maleate 5 mg tablet 5 mg PO TID PRN (Reason: acute nausea) Qty: 30 0RF magnesium gluconate 27 mg magnesium (500 mg) tablet 27 mg PO BID Qty: 60 3RF ondansetron 4 mg tablet,disintegrating 4 mg PO Q8H PRN (Reason: nausea and vomiting) Qty: 20 0RF simethicone 125 mg tablet,chewable 125 mg PO QID PRN (Reason: abdominal distention) Qty: 20 0RF Discharge Instructions Instructions: Hypomagnesemia (ED) Additional Instructions: Today your calcium is improved to 8.1, you are given an additional magnesium supplement here in the ER. Continue to take your previously prescribed medications as directed. Your TSH was elevated today please discuss this with your out of school hours care worker if needed. Follow up with primary care provider in 3-5 days. Return to ED/out of school hours care worker sooner if any worsening or concerns. Referrals: ENDOCRINOLOGY,[facility] [place] [OTHER] - 1 week (Call to be seen) Brendon Vivar DO [Primary Care Provider] - 1 week Discharge Data Discharge Date/Time-TO BE ENTERED AT DEPARTURE: 11/17/23 13:05 HPI General Mode of arrival: ambulatory . Date/Time Provider Initiated Documentation: 11/17/23 11:39 . Limitations to Documentation: no limitations . Information obtained by: patient, RN notes reviewed and old records reviewed . HPI Narrative: 28-year-old male with a past medical history of parathyroidectomy, hypocalcemia hypomagnesemia, primary hyper para thyroiditis, chronic kidney disease stage II depression anxiety hyperlipidemia PTSD and family history of multiple endocrine neoplasia type I presents to the ER with a chief complaint of feeling shaky, palpitations and feeling like his calcium is low. Patient was seen here in ED on Monday 11/13. Patient denies any nausea vomiting diarrhea he denies any drugs or alcohol he reports that he has been drinking 6-7 water bottles a day. He also reports that he has been increasing his calcium citrate intake he did take 2 g p.o. this a.m. and 1000 mg magnesium this a.m. 500 mg every afternoon. On exam he is slightly tachycardic with a heart rate of 109, he is slightly tremulous, does have mild tetany noted to his lower extremities. Related Data Home Medications Medication Instructions Recorded Confirmed calcium carbonate (Tums) 2,000 mg PO BID 02/02/23 11/17/23 calcitriol 0.5 mcg capsule 0.5 mcg PO BID #360 caps 04/21/23 11/17/23 diclofenac sodium 1 % topical gel 4 g topical QID #100 grams 04/21/23 11/17/23 methadone 10 mg/5 mL oral solution 105 mg PO QAM 06/12/23 11/17/23 polyethylene glycol 3350 17 17 g PO DAILY 06/12/23 11/17/23 gram/dose oral powder gabapentin 300 mg capsule 300 mg PO BID #180 caps 06/23/23 11/17/23 omeprazole 40 mg capsule,delayed 40 mg PO DAILY #90 caps 07/21/23 11/17/23 release cyclobenzaprine 10 mg tablet 10 mg PO TID PRN muscle spasm #30 08/18/23 11/17/23 tabs prochlorperazine maleate 5 mg 5 mg PO TID PRN acute nausea #30 09/06/23 11/17/23 tablet tabs magnesium gluconate 27 mg 27 mg PO BID #60 tabs 10/27/23 11/17/23 magnesium (500 mg) tablet ondansetron 4 mg disintegrating 4 mg PO Q8H PRN nausea and 10/30/23 11/17/23 tablet vomiting #20 tabs simethicone 125 mg chewable tablet 125 mg PO QID PRN abdominal 10/30/23 11/17/23 distention #20 tabs clonazepam 1 mg tablet 1 mg PO BID #56 tabs 11/07/23 11/17/23 venlafaxine 75 mg capsule,extended 75 mg PO DAILY #90 caps 11/07/23 11/17/23 release 24 hr Previous Rx's Medication Instructions Recorded calcitriol 0.5 mcg capsule 0.5 mcg PO BID #360 caps 04/21/23 diclofenac sodium 1 % topical gel 4 g topical QID #100 grams 04/21/23 gabapentin 300 mg capsule 300 mg PO BID #180 caps 06/23/23 omeprazole 40 mg capsule,delayed 40 mg PO DAILY #90 caps 07/21/23 release cyclobenzaprine 10 mg tablet 10 mg PO TID PRN muscle spasm #30 08/18/23 tabs prochlorperazine maleate 5 mg 5 mg PO TID PRN acute nausea #30 09/06/23 tablet tabs magnesium gluconate 27 mg 27 mg PO BID #60 tabs 10/27/23 magnesium (500 mg) tablet ondansetron 4 mg disintegrating 4 mg PO Q8H PRN nausea and 10/30/23 tablet vomiting #20 tabs simethicone 125 mg chewable tablet 125 mg PO QID PRN abdominal 10/30/23 distention #20 tabs clonazepam 1 mg tablet 1 mg PO BID #56 tabs 11/07/23 venlafaxine 75 mg capsule,extended 75 mg PO DAILY #90 caps 11/07/23 release 24 hr Allergies Allergy/AdvReac Type Severity Reaction Status Date / Time codeine Allergy Intermediate pass out Verified 11/17/23 11:39 Penicillins Allergy Skin Rash Verified 11/17/23 11:39 amoxicillin AdvReac Intermediate Nausea Verified 11/17/23 11:39 dextromethorphan AdvReac Intermediate Other (See Verified 11/17/23 11:39 [From NyQuil] Comment) doxylamine [From NyQuil] AdvReac Intermediate Other (See Verified 11/17/23 11:39 Comment) pseudoephedrine [From NyQuil] AdvReac Intermediate Other (See Verified 11/17/23 11:39 Comment) General Stated Complaint: GenMedical ADRIANA: 3 Review of Systems All systems reviewed & are unremarkable except as noted in HPI and below Constitutional Constitutional: Reports as per HPI, Reports body ache(s), Reports excessive sweating and Reports fatigue Cardiovascular Cardiovascular: Reports rapid heart rate and Reports palpitations Musculoskeletal Musculoskeletal: Reports as per HPI and Reports tingling Neurologic Neurologic: Reports tingling, Reports paresthesias and Reports tremor(s) Psychiatric Psychiatric: Reports as per HPI and Reports anxiety Endocrine Endocrine: Reports excessive sweating, Reports fatigue, Reports polydipsia and Reports palpitations Exam Narrative Exam Narrative: Constitutional: Alert and oriented x3. Appears stated age. Obese body habitus. Head: Normocephalic, no trauma. Eyes: Pupils PERRL, Red reflex noted, EOM's intact. Eyelids symmetrical without lesions, discharge, or swelling. ENT: Bilateral TM's WNL, External ear normal to inspection, no mastoid TTP, swelling, or erythema, Nasal turbinates WNL, no nasal discharge. Poor dentition, Chest: Tachycardic with a rate of 109, normal S1, S2, distal pulses intact. Resp: Lungs clear to auscultation bilaterally, no wheezes, rales, or rhonchi. Abdomen: Soft, non-distended, Normoactive bowel sounds all 4 quads. Musculoskeletal: Normal gait, Moves all 4 extremities without difficulty. Skin: No suspicious rashes or lesions. Capillary refill less than 2 sec. Neurologic: Cranial nerves II-XII intact. Alert and oriented x 3. Motor: Generalized weakness all 4 extremities, mild tetany noted bilateral lower extremities, sensory: Intact bilaterally all 4 extremities. Hematologic/Lymphatic: No ecchymosis, no lymphadenopathy. Course Vital Signs Vital signs: Vital Signs Temperature 37.4 C 11/17/23 11:35 Pulse 123 H 11/17/23 11:35 Respiratory Rate 24 11/17/23 11:35 Blood Pressure 155/97 H 11/17/23 11:35 Pulse Oximetry 99 11/17/23 11:35 Temperature 37.4 C 11/17/23 11:35 Temperature Source Skin 11/17/23 11:35 Pulse 123 H 11/17/23 11:35 Respiratory Rate 24 11/17/23 11:35 Respiratory Effort Normal, Non-Labored 11/17/23 11:38 Blood Pressure 155/97 H 11/17/23 11:35 Blood Pressure Position Sitting 11/17/23 11:35 Pulse Oximetry 99 11/17/23 11:35 Oxygen Delivery Method Room Air 11/17/23 11:35 Oxygen Flow Rate 0 11/17/23 11:35 Medical Decision Making 28-year-old male with a past medical history of parathyroidectomy, hypocalcemia hypomagnesemia, primary hyper para thyroiditis, chronic kidney disease stage II depression anxiety hyperlipidemia PTSD and family history of multiple endocrine neoplasia type I presents to the ER with a chief complaint of feeling shaky, palpitations and feeling like his calcium is low. Patient was seen here in ED on Monday 11/13. Patient denies any nausea vomiting diarrhea he denies any drugs or alcohol he reports that he has been drinking 6-7 water bottles a day. He also reports that he has been increasing his calcium citrate intake he did take 2 g p.o. this a.m. and 1000 mg magnesium this a.m. 500 mg every afternoon. On exam he is slightly tachycardic with a heart rate of 109, he is slightly tremulous, does have mild tetany noted to his lower extremities. Workup ordered including IV access, CBC CMP, magnesium, TSH and PTH send out, will consider PO replenishment if possible. Magnesium slightly low at 1.6, CBC largely at baseline, BUN creatinine at baseline, glucose 112, calcium is improved since previous visit 8.1, TSH is elevated at 4.05 Free T4 is pending at this time. Will have patient follow-up with out of school hours care worker regarding the TSH level and instructed to continue his previously prescribed medications. Will give magnesium oxide 400 mg here in the ER p.o. This text was generated using Babelwayation system, please disregard any oddities of phrase or misspellings. Medical Records Medical records reviewed: Yes I reviewed the patient's medical records. Lab Data Lab results reviewed: Yes I reviewed the patient's lab results. Labs: Laboratory Tests Range/Units 11/17/23 12:00 WBC (4.4-10.8) 10^3/uL 8.50 RBC (4.36-5.78) 10^6/uL 4.15 L Hgb (13.5-17.5) g/dL 11.9 L Hct (40.0-50.0) % 36.4 L MCV (80-95) fL 88 MCH (27.0-33.0) pg 28.7 MCHC (32.0-36.0) % 32.7 RDW (11.8-14.1) % 13.1 Plt Count (130-400) 10^3/uL 301 MPV (8.0-11.0) fL 10.2 Immature Gran % % 0.4 Neutrophils % % 67.0 Lymphocytes % % 19.8 Monocytes % % 10.6 Eosinophils % % 1.6 Basophils % % 0.6 Nucleated RBC % (0.0-0.3) % 0.0 Absolute Neutrophils (1.2-6.7) 10^3/uL 5.70 Absolute Lymphocytes (1.2-3.4) 10^3/uL 1.68 Absolute Monocytes (0.1-0.8) 10^3/uL 0.90 H Absolute Eosinophils (0.0-0.7) 10^3/uL 0.14 Absolute Basophils (0.0-0.2) 10^3/uL 0.05 Sodium (136-145) mmol/L 141 Potassium (3.5-5.1) mmol/L 3.8 Chloride (98-107) mmol/L 102 Carbon Dioxide (21.0-32.0) mmol/L 34.2 H Anion Gap (3-11) mmol/L 4.8 BUN (7-18) mg/dL 22 H Creatinine (0.70-1.30) mg/dL 1.2 Est GFR (CKD-EPI 2020) (mL/min/1.73m2) 83.43 Glucose (74-106) mg/dL 112 H Calcium (8.5-10.1) mg/dL 8.1 L Magnesium (1.8-2.4) mg/dL 1.6 L Total Bilirubin (0.2-1.0) mg/dL 0.3 AST (15-37) U/L 30 ALT (16-63) U/L 52 Alkaline Phosphatase (46-116) U/L 129 H Total Protein (6.4-8.2) g/dL 7.8 Albumin (3.4-5.0) g/dL 3.3 L TSH (0.36-3.74) uIU/mL 4.05 H Quality:SDOH Health Related Social Needs: Health related social needs transpo insecurity [facility] All Active Problems (Updated 11/17/23 @ 12:49 by Antoinette Templeton NP) Hypomagnesemia (Acute) Elevated TSH (Acute) Congestion of upper respiratory tract (Acute) Chest pain (Acute) Strain of right groin (Acute) Chronic abdominal pain (Acute) Nausea & vomiting (Acute) Abdominal pain (Acute) Nausea (Acute) Abdominal bloating (Acute) Hypocalcemia (Acute) Hypomagnesemia (Acute) Chest discomfort (Acute) Hypomagnesemia (Acute) Bronchitis (Acute) 10/08/2023 - Dx @ 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 ED Left arm numbness (Acute) Gynecomastia, male (Acute) b/l, per CT (Jul 2022).. Possible 2' Methadone, Clnzpm (?). Surg eval (+)/No further action. History of electrolyte imbalance (Acute) Neck pain on left side (Acute) with shoulder, upper back pain.. torticollis, radiating into left hip/leg Pulmonary nodule 1 cm or greater in diameter (Chronic) Therapeutic opioid induced constipation (Acute) Sphincter of Oddi dysfunction (Chronic) Abnormal CT scan, kidney (Acute) Intrahepatic bile duct dilation (Acute) Common bile duct dilatation (Chronic) Has been dilated for quite some time, now more-so. Normal LFTs. Known gallstones. Abdominal pain (Acute) Iatrogenic hypocalcemia (Acute) Multiple endocrine neoplasia type I (Chronic) Chronic constipation (Chronic) Depression (Chronic) Hypomagnesemia (Chronic) Hypocalcemia (Chronic) Depression (Chronic) Suicidal ideation (Acute) Elevated parathyroid hormone (Acute) Family history of coronary arteriosclerosis (Chronic) Father of AR at 50, mother had AR at 42 Severe anxiety with panic (Chronic) Cellulitis (Acute) Medical History CKD (chronic kidney disease) stage 2, GFR 60-89 ml/min GFR 64-65, with Hx FLORESITA and GFR < 45 Primary hyperparathyroidism Complex medical condition Serious electrolyte imbalances, with gynecomastia, possible MEN Dx, CKD and anemia with baseline anxiety and Hx PTSD. Hypocalcemia Anxiety Depression Hyperlipidemia Family history of multiple endocrine neoplasia, type 1 PTSD (post-traumatic stress disorder) Per pt. states no triggers at this time. Surgical History H/O parathyroidectomy Family History Mother Anxiety Asthma Depression Sister Anxiety Depression Father Cancer lung & stomach Depression Diabetes Hypertension MEN 1 (multiple endocrine neoplasia) Social History Smoking/Tobacco Use Status: Never Smoking risk assessment performed?: Yes Alcohol Intake: never Drug use: Rarely Substance use type: does not use and former substance user Adopted: No Caregiver/Support person: No Foster care: No Household members: none Housing: apartment Number of Children: 0 Communication Needs: None Education Level: high school Do you need help understanding health information?: Never current occupation: [employer] Pets and animals: Yes (Ally) Pets and animals: dog(s) Sexually active: No Do you think of yourself as: straight/heterosexual Current gender identity: male What is your relationship status?: How often do you talk on the phone with friends or family?: twice per week How often do you get together with friends or relatives?: never Do you belong to any clubs or organized social groups?: no Panel score (0-1 are the most socially isolated patients): 0 What type of physical activity do you participate in: walking Duration: 15-30 minutes/day Frequency: 5-6 times per week Maryam/Mormon: Yarsani Special maryam needs: No Seatbelt use: always Helmet use: Yes Helmet use: always Drive intox or ride w/intox warehouse 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
[2023-11-17 12:09] LABS: Abs Immature Grans 0.03 10^3/uL (0.0-0.06); Absolute Basophil Count 0.05 10^3/uL (0.0-0.2); Absolute Eosinophil Count 0.14 10^3/uL (0.0-0.7); Absolute Lymphocyte Count 1.68 10^3/uL (1.2-3.4); Basophils % 0.6 %; Eosinophils % 1.6 %; HCT 36.4 % (40.0-50.0); HGB 11.9 g/dL (13.5-17.5); Immature Grans % 0.4 %; Lymphocytes % 19.8 %; MCH 28.7 pg (27.0-33.0); MCHC 32.7 % (32.0-36.0); MCV 88 fL (80-95); MPV 10.2 fL (8.0-11.0); Monocytes % 10.6 %; Platelet Count 301 10^3/uL (130-400); RBC 4.15 10^6/uL (4.36-5.78); RDW 13.1 % (11.8-14.1); RDW-SD 41.4 fL
[2023-11-17 12:22] VITALS: PULSE 92
[2023-11-17 12:30] LABS: Magnesium 1.6 mg/dL (1.8-2.4)
[2023-11-17 12:33] LABS: ALT 52 U/L (16-63); AST 30 U/L (15-37); Albumin 3.3 g/dL (3.4-5.0); Alkaline Phosphatase 129 U/L (46-116); Anion Gap 4.8 mmol/L (3-11); BUN 22 mg/dL (7-18); Bilirubin, Total 0.3 mg/dL (0.2-1.0); CO2 34.2 mmol/L (21.0-32.0); CREATININE 1.2 mg/dL (0.70-1.30); Calcium 8.1 mg/dL (8.5-10.1); Chloride 102 mmol/L (98-107); Estimated GFR 83.43 (mL/min/1.73m2); Glucose 112 mg/dL (74-106); Potassium 3.8 mmol/L (3.5-5.1); Sodium 141 mmol/L (136-145); TSH (W/Ref FT4) 4.05 uIU/mL (0.36-3.74); Total Protein 7.8 g/dL (6.4-8.2)
[2023-11-17 12:52] LABS: FREE T4 0.85 ng/dL (0.76-1.46)
[2023-11-17] MEDS: Magnesium Oxide 400 MG TAB PO (12:52)
[2023-11-17 12:53] VITALS: PULSE 85; RESP 18; O2SAT 98
[2023-11-17 13:04] VITALS: BP 122/82; PULSE 88; RESP 14; O2SAT 98
[2023-11-17 23:14] LABS: Parathyroid Hormone,Intact <6 pg/mL (19-88)
== END 2023-11-17 13:05 | disposition home or self-care (01) ==
PROVIDERS: Emergency Provider Registered Nurse Emergency; PCP Family Medicine
DX: R00.2 Palpitations (principal); E83.42 Hypomagnesemia; R79.89 Other specified abnormal findings of blood chemistry
CPT/HCPCS: 80053; 99283; 83735; 83970; 84439; 84443; 85025

== ENCOUNTER 2023-11-19 08:50 | Emergency (ER) | payer OTHER, SELFPAY ==
[2023-11-19 08:55] VITALS: BP 128/84; PULSE 111; RESP 20; TEMP 37.3; O2SAT 97
[2023-11-19 09:05] VITALS: RESP 16
--- NOTE | 2023-11-19 09:08 | ED.GENADUL_ITS ---
Discharge Plan Disposition Patient Disposition: Home Condition: Stable Discharge Details Clinical Impression: Anxiety Primary Care Provider: Brendon Viavr ED Provider: Ricardo Crabtree Home Meds and New Rx's Prescriptions: Continued gabapentin 300 mg capsule 300 mg PO BID Qty: 180 3RF cyclobenzaprine 10 mg tablet 10 mg PO TID PRN (Reason: muscle spasm) Qty: 30 3RF methadone 10 mg/5 mL solution 105 mg PO QAM calcitriol 0.5 mcg capsule 0.5 mcg PO BID Qty: 360 3RF Hold Instructions: Resume on 06/15/22. diclofenac sodium 1 % gel 4 g topical QID Qty: 100 6RF Rx Instructions: apply to single knee, ankle, foot; for foot includes sole/toes/top of foot polyethylene glycol 3350 17 gram/dose powder 17 g PO DAILY omeprazole 40 mg capsule,delayed release(DR/EC) 40 mg PO DAILY Qty: 90 3RF venlafaxine 75 mg capsule,extended release 24hr 75 mg PO DAILY Qty: 90 0RF Patient Comments: pt states hes never heard of this medication and doesn't take it clonazepam 1 mg tablet 1 mg PO BID Qty: 56 1RF calcium carbonate [Tums] 200 mg calcium (500 mg) tablet,chewable 2,000 mg PO BID Hold Instructions: Resume on 05/12/23. Please hold your nightly dose tonight and your a.m. dose tomorrow morning. prochlorperazine maleate 5 mg tablet 5 mg PO TID PRN (Reason: acute nausea) Qty: 30 0RF magnesium gluconate 27 mg magnesium (500 mg) tablet 27 mg PO BID Qty: 60 3RF ondansetron 4 mg tablet,disintegrating 4 mg PO Q8H PRN (Reason: nausea and vomiting) Qty: 20 0RF simethicone 125 mg tablet,chewable 125 mg PO QID PRN (Reason: abdominal distention) Qty: 20 0RF Discharge Instructions Additional Instructions: You can increase your Klonopin to 2 mg daily which can be taken at once or split up once in the morning 1 at night Follow-up with your primary care provider and can also call [facility] at [phone] If you feel more ill or feel like you are suffering from a emergent medical process return to the emergency department for reevaluation HPI General Mode of arrival: ambulatory . Date/Time Provider Initiated Documentation: 11/19/23 08:51 . Limitations to Documentation: no limitations . Information obtained by: patient . History of Present Illness 28 year old M presents to the emergency department with the chief complaint of anxiety, described as moderate, and it has been constant. No relieving factors improve symptom(s), No exacerbating factors reported . Patient notes no other symptoms.; denies chest pain and shortness of breath. Patient did receive the following treatments prior to arrival, none Related Data Home Medications Medication Instructions Recorded Confirmed calcium carbonate (Tums) 2,000 mg PO BID 02/02/23 11/19/23 calcitriol 0.5 mcg capsule 0.5 mcg PO BID #360 caps 04/21/23 11/19/23 diclofenac sodium 1 % topical gel 4 g topical QID #100 grams 04/21/23 11/19/23 methadone 10 mg/5 mL oral solution 105 mg PO QAM 06/12/23 11/19/23 polyethylene glycol 3350 17 17 g PO DAILY 06/12/23 11/19/23 gram/dose oral powder gabapentin 300 mg capsule 300 mg PO BID #180 caps 06/23/23 11/19/23 omeprazole 40 mg capsule,delayed 40 mg PO DAILY #90 caps 07/21/23 11/19/23 release cyclobenzaprine 10 mg tablet 10 mg PO TID PRN muscle spasm #30 08/18/23 11/19/23 tabs prochlorperazine maleate 5 mg 5 mg PO TID PRN acute nausea #30 09/06/23 11/19/23 tablet tabs magnesium gluconate 27 mg 27 mg PO BID #60 tabs 10/27/23 11/19/23 magnesium (500 mg) tablet ondansetron 4 mg disintegrating 4 mg PO Q8H PRN nausea and 10/30/23 11/19/23 tablet vomiting #20 tabs simethicone 125 mg chewable tablet 125 mg PO QID PRN abdominal 10/30/23 11/19/23 distention #20 tabs clonazepam 1 mg tablet 1 mg PO BID #56 tabs 11/07/23 11/19/23 venlafaxine 75 mg capsule,extended 75 mg PO DAILY #90 caps 11/07/23 11/17/23 release 24 hr Previous Rx's Medication Instructions Recorded calcitriol 0.5 mcg capsule 0.5 mcg PO BID #360 caps 04/21/23 diclofenac sodium 1 % topical gel 4 g topical QID #100 grams 04/21/23 gabapentin 300 mg capsule 300 mg PO BID #180 caps 06/23/23 omeprazole 40 mg capsule,delayed 40 mg PO DAILY #90 caps 07/21/23 release cyclobenzaprine 10 mg tablet 10 mg PO TID PRN muscle spasm #30 08/18/23 tabs prochlorperazine maleate 5 mg 5 mg PO TID PRN acute nausea #30 09/06/23 tablet tabs magnesium gluconate 27 mg 27 mg PO BID #60 tabs 10/27/23 magnesium (500 mg) tablet ondansetron 4 mg disintegrating 4 mg PO Q8H PRN nausea and 10/30/23 tablet vomiting #20 tabs simethicone 125 mg chewable tablet 125 mg PO QID PRN abdominal 10/30/23 distention #20 tabs clonazepam 1 mg tablet 1 mg PO BID #56 tabs 11/07/23 venlafaxine 75 mg capsule,extended 75 mg PO DAILY #90 caps 11/07/23 release 24 hr Allergies Allergy/AdvReac Type Severity Reaction Status Date / Time codeine Allergy Intermediate pass out Verified 11/19/23 09:00 Penicillins Allergy Skin Rash Verified 11/19/23 09:00 amoxicillin AdvReac Intermediate Nausea Verified 11/19/23 09:00 dextromethorphan AdvReac Intermediate Other (See Verified 11/19/23 09:00 [From NyQuil] Comment) doxylamine [From NyQuil] AdvReac Intermediate Other (See Verified 11/19/23 09:00 Comment) pseudoephedrine [From NyQuil] AdvReac Intermediate Other (See Verified 11/19/23 09:00 Comment) General Stated Complaint: Anxiety ADRIANA: 3 Review of Systems All systems reviewed & are unremarkable except as noted in HPI and below Constitutional Constitutional: Denies chills, Denies fever(s) and Denies weakness Cardiovascular Cardiovascular: Denies chest pain and Denies dyspnea Respiratory Respiratory: Denies cough and Denies dyspnea Gastrointestinal Gastrointestinal: Denies abdominal pain and Denies vomiting Musculoskeletal Musculoskeletal: Denies joint swelling Neurologic Neurologic: Denies weakness Exam Const General: anxious Orientation: alert HENMT Head: normal to inspection Ears: external ears normal General nose exam: external nose normal Mouth: moist mucous membranes Eyes General: appearance normal, both eyes and all related structures Neck Neck: normal visual inspection Resp Effort & Inspection: normal respiratory effort and able to speak in complete sentences Auscultation: clear to auscultation bilaterally Cardio Rate: regular rate Heart Sounds: no murmurs GI Palpation: soft and nontender Skin General skin exam: no rashes or lesions noted Neuro General: patient alert and patient oriented x3 Extrem General: normal to inspection Psych Mental Status: mental status grossly normal Course Vital Signs Vital signs: Vital Signs Temperature 37.3 C 11/19/23 08:55 Pulse 111 H 11/19/23 08:55 Respiratory Rate 20 11/19/23 08:55 Blood Pressure 128/84 11/19/23 08:55 Pulse Oximetry 97 11/19/23 08:55 Temperature 37.3 C 11/19/23 08:55 Temperature Source Skin 11/19/23 08:55 Pulse 111 H 11/19/23 08:55 Respiratory Rate 20 11/19/23 08:55 Blood Pressure 128/84 11/19/23 08:55 Blood Pressure Position Sitting 11/19/23 08:55 Pulse Oximetry 97 11/19/23 08:55 Oxygen Delivery Method Room Air 11/19/23 08:55 Oxygen Flow Rate 0 11/19/23 08:55 Medical Decision Making 1-year-old male with a history of multiple endocrine neoplasia, anxiety, frequent ER visits, comes in with feeling increased anxiety over the last few days. He says the Klonopin that he has is not helping him. He says he feels shaky and that he just feels very anxious. Denies any SI. He is alert speaking clearly on exam and does appear anxious. No focal neurological deficits, clear lungs, normal ambulation. His presentation is consistent with anxiety and possibly a panic attack will treat with oral Ativan and reassess. Patient is significantly better, he is on 1 mg of clonazepam daily which I said he can increase to twice daily if you feel he needs it. He is stable for discharge still has no SI and is calm and cooperative. He will follow-up with PCP and I gave him the number for [facility] as well. Differential Diagnosis Differential Diagnosis: Anxiety, panic attack Quality:SDOH Health Related Social Needs: Health related social needs transpo insecurity PFSH All Active Problems (Updated 11/19/23 @ 10:31 by Ricardo Crabtree MD) Anxiety (Chronic) Hypomagnesemia (Acute) Elevated TSH (Acute) Congestion of upper respiratory tract (Acute) Chest pain (Acute) Strain of right groin (Acute) Chronic abdominal pain (Acute) Nausea & vomiting (Acute) Abdominal pain (Acute) Nausea (Acute) Abdominal bloating (Acute) Hypocalcemia (Acute) Hypomagnesemia (Acute) Chest discomfort (Acute) Hypomagnesemia (Acute) Bronchitis (Acute) 10/08/2023 - Dx @ [facility] E/R Chani MORALES Bronchitis (Acute) Testicle lump (Acute) Hamstring tendinitis of left thigh (Acute) Pes anserine bursitis (Acute) Hypernatremia (Acute) Cervical radiculopathy (Acute) URI (upper respiratory infection) (Acute) Left-sided Flower's palsy (Acute) Neck pain on left side (Acute) Constipation (Acute) Grief reaction (Chronic) Opiate dependence, continuous (Acute) Cellulitis (Acute) Cholelithiases (Acute) 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 Possible 2' Methadone, Clnzpm (?). Surg eval (+)/No further action. History of electrolyte imbalance (Acute) Neck pain on left side (Acute) with shoulder, upper back pain.. torticollis, radiating into left hip/leg Pulmonary nodule 1 cm or greater in diameter (Chronic) Therapeutic opioid induced constipation (Acute) Sphincter of Oddi dysfunction (Chronic) Abnormal CT scan, kidney (Acute) Intrahepatic bile duct dilation (Acute) Common bile duct dilatation (Chronic) Has been dilated for quite some time, now more-so. Normal LFTs. Known gallstones. Abdominal pain (Acute) Iatrogenic hypocalcemia (Acute) Multiple endocrine neoplasia type I (Chronic) Chronic constipation (Chronic) Depression (Chronic) Hypomagnesemia (Chronic) Hypocalcemia (Chronic) Depression (Chronic) Suicidal ideation (Acute) Elevated parathyroid hormone (Acute) Family history of coronary arteriosclerosis (Chronic) Father of OR at 50, mother had OR at 42 Severe anxiety with panic (Chronic) Cellulitis (Acute) Medical History CKD (chronic kidney disease) stage 2, GFR 60-89 ml/min GFR 64-65, with Hx FLORESITA and GFR < 45 Primary hyperparathyroidism Complex medical condition Serious electrolyte imbalances, with gynecomastia, possible MEN Dx, CKD and anemia with baseline anxiety and Hx PTSD. Hypocalcemia Anxiety Depression Hyperlipidemia Family history of multiple endocrine neoplasia, type 1 PTSD (post-traumatic stress disorder) Per pt. states no triggers at this time. Surgical History H/O parathyroidectomy Family History Mother Anxiety Asthma Depression Sister Anxiety Depression Father Cancer lung & stomach Depression Diabetes Hypertension MEN 1 (multiple endocrine neoplasia) Social History Smoking/Tobacco Use Status: Never Smoking risk assessment performed?: Yes Alcohol Intake: never Drug use: Rarely Substance use type: does not use and former substance user Adopted: No Caregiver/Support person: No Foster care: No Household members: none Housing: apartment Number of Children: 0 Communication Needs: None Education Level: high school Do you need help understanding health information?: Never current occupation: [employer] Pets and animals: Yes (Ally) Pets and animals: dog(s) Sexually active: No Do you think of yourself as: straight/heterosexual Current gender identity: male What is your relationship status?: How often do you talk on the phone with friends or family?: twice per week How often do you get together with friends or relatives?: never Do you belong to any clubs or organized social groups?: no Panel score (0-1 are the most socially isolated patients): 0 What type of physical activity do you participate in: walking Duration: 15-30 minutes/day Frequency: 5-6 times per week Maryam/Quaker: Church Special maryam needs: No Seatbelt use: always Helmet use: Yes Helmet use: always Drive intox or ride w/intox 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
[2023-11-19] MEDS: LORazepam 1 MG TAB 2 MG PO (09:10)
== END 2023-11-19 10:37 | disposition home or self-care (01) ==
PROVIDERS: Emergency Provider Emergency Medicine; PCP Family Medicine
DX: F41.9 Anxiety disorder, unspecified (principal); N18.2 Chronic kidney disease, stage 2 (mild); E21.0 Primary hyperparathyroidism
CPT/HCPCS: 99283

== ENCOUNTER 2023-11-21 07:09 | Emergency (ER) | payer OTHER, SELFPAY ==
[2023-11-21 07:13] VITALS: BP 135/80; PULSE 132; RESP 18; TEMP 37; O2SAT 96
--- NOTE | 2023-11-21 07:15 | RT.EKG_ITS ---
APPROVED REPORT Exam: Resting ECG Reason for Exam: symptomatic Patient Location: E HR:119 bpm ECG Measurements Heart Rate 119 AXIS WA 171 P 54 QRSd 94 QRS 66 QT 316 T 6 QTc 443 Conclusion Sinus tachycardia...rate> 99
[2023-11-21 07:25] VITALS: BP 100/49; PULSE 118; PULSE 125; RESP 21; O2SAT 98
[2023-11-21 07:30] VITALS: BP 101/53; PULSE 115; PULSE 119; RESP 13; O2SAT 96
--- NOTE | 2023-11-21 07:57 | W.ED.GENAD ---
Discharge Plan Disposition Patient Disposition: Home Condition: Stable Discharge Details Clinical Impression: Anxiety, Hypomagnesemia Primary Care Provider: Brendon Vivar ED Provider: Lester Bundy Home Meds and New Rx's Prescriptions: Continued gabapentin 300 mg capsule 300 mg PO BID Qty: 180 3RF cyclobenzaprine 10 mg tablet 10 mg PO TID PRN (Reason: muscle spasm) Qty: 30 3RF methadone 10 mg/5 mL solution 105 mg PO QAM calcitriol 0.5 mcg capsule 0.5 mcg PO BID Qty: 360 3RF Hold Instructions: Resume on 06/15/22. diclofenac sodium 1 % gel 4 g topical QID Qty: 100 6RF Rx Instructions: apply to single knee, ankle, foot; for foot includes sole/toes/top of foot polyethylene glycol 3350 17 gram/dose powder 17 g PO DAILY omeprazole 40 mg capsule,delayed release(DR/EC) 40 mg PO DAILY Qty: 90 3RF venlafaxine 75 mg capsule,extended release 24hr 75 mg PO DAILY Qty: 90 0RF Patient Comments: pt states hes never heard of this medication and doesn't take it clonazepam 1 mg tablet 1 mg PO BID Qty: 56 1RF calcium carbonate [Tums] 200 mg calcium (500 mg) tablet,chewable 2,000 mg PO BID Hold Instructions: Resume on 05/12/23. Please hold your nightly dose tonight and your a.m. dose tomorrow morning. prochlorperazine maleate 5 mg tablet 5 mg PO TID PRN (Reason: acute nausea) Qty: 30 0RF ondansetron 4 mg tablet,disintegrating 4 mg PO Q8H PRN (Reason: nausea and vomiting) Qty: 20 0RF simethicone 125 mg tablet,chewable 125 mg PO QID PRN (Reason: abdominal distention) Qty: 20 0RF Changed magnesium gluconate 27 mg magnesium (500 mg) tablet 13.5 mg PO TID Qty: 60 3RF Discharge Instructions Instructions: Hypomagnesemia (ED), Anxiety (ED) Additional Instructions: Please contact your primary care physician to arrange follow-up. Please change magnesium to 250 mg 3 times a day (750 total mg daily). Return to the ER immediately for any worsening or new concerning symptoms. Referrals: Brendon Vivar DO [Primary Care Provider] - HPI General Mode of arrival: ambulatory. Date/Time Provider Initiated Documentation: 11/21/23 07:12. Limitations to Documentation: no limitations. Information obtained by: patient. HPI Narrative: 28-year-old male with multiple medical problems, frequent ED visits, here with chief complaint of feels like my magnesium is too high. Patient notes 1 to 2 weeks ago he saw his primary care physician for hypomagnesemia. His PCP recommended increasing magnesium dose from 500 daily to 500 twice a day. He has been taking this as recommended. He notes over the past day has been feeling like his heart rate is too fast, having bodyaches, and feeling a little bit confused. Patient denies fever. No headache or chest pain. Related Data Home Medications Medication Instructions Recorded Confirmed calcium carbonate (Tums) 2,000 mg PO BID 02/02/23 11/21/23 calcitriol 0.5 mcg capsule 0.5 mcg PO BID #360 caps 04/21/23 11/21/23 diclofenac sodium 1 % topical gel 4 g topical QID #100 grams 04/21/23 11/21/23 methadone 10 mg/5 mL oral solution 105 mg PO QAM 06/12/23 11/21/23 polyethylene glycol 3350 17 17 g PO DAILY 06/12/23 11/21/23 gram/dose oral powder gabapentin 300 mg capsule 300 mg PO BID #180 caps 06/23/23 11/21/23 omeprazole 40 mg capsule,delayed 40 mg PO DAILY #90 caps 07/21/23 11/21/23 release cyclobenzaprine 10 mg tablet 10 mg PO TID PRN muscle spasm #30 08/18/23 11/21/23 tabs prochlorperazine maleate 5 mg 5 mg PO TID PRN acute nausea #30 09/06/23 11/21/23 tablet tabs ondansetron 4 mg disintegrating 4 mg PO Q8H PRN nausea and 10/30/23 11/21/23 tablet vomiting #20 tabs simethicone 125 mg chewable tablet 125 mg PO QID PRN abdominal 10/30/23 11/21/23 distention #20 tabs clonazepam 1 mg tablet 1 mg PO BID #56 tabs 11/07/23 11/21/23 venlafaxine 75 mg capsule,extended 75 mg PO DAILY #90 caps 11/07/23 11/21/23 release 24 hr magnesium gluconate 27 mg 13.5 mg (1/2 x 27 mg magnesium 11/21/23 11/21/23 magnesium (500 mg) tablet (500 mg)) PO TID #60 tabs Previous Rx's Medication Instructions Recorded calcitriol 0.5 mcg capsule 0.5 mcg PO BID #360 caps 04/21/23 diclofenac sodium 1 % topical gel 4 g topical QID #100 grams 04/21/23 gabapentin 300 mg capsule 300 mg PO BID #180 caps 06/23/23 omeprazole 40 mg capsule,delayed 40 mg PO DAILY #90 caps 07/21/23 release cyclobenzaprine 10 mg tablet 10 mg PO TID PRN muscle spasm #30 08/18/23 tabs prochlorperazine maleate 5 mg 5 mg PO TID PRN acute nausea #30 09/06/23 tablet tabs ondansetron 4 mg disintegrating 4 mg PO Q8H PRN nausea and 10/30/23 tablet vomiting #20 tabs simethicone 125 mg chewable tablet 125 mg PO QID PRN abdominal 10/30/23 distention #20 tabs clonazepam 1 mg tablet 1 mg PO BID #56 tabs 11/07/23 venlafaxine 75 mg capsule,extended 75 mg PO DAILY #90 caps 11/07/23 release 24 hr magnesium gluconate 27 mg 13.5 mg (1/2 x 27 mg magnesium 11/21/23 magnesium (500 mg) tablet (500 mg)) PO TID #60 tabs Allergies Allergy/AdvReac Type Severity Reaction Status Date / Time codeine Allergy Intermediate pass out Verified 11/21/23 09:29 Penicillins Allergy Skin Rash Verified 11/21/23 09:29 amoxicillin AdvReac Intermediate Nausea Verified 11/21/23 09:29 dextromethorphan AdvReac Intermediate Other (See Verified 11/21/23 09:29 [From NyQuil] Comment) doxylamine [From NyQuil] AdvReac Intermediate Other (See Verified 11/21/23 09:29 Comment) pseudoephedrine [From NyQuil] AdvReac Intermediate Other (See Verified 11/21/23 09:29 Comment) General Stated Complaint: Arrhythmia ADRIANA: 3 Review of Systems All systems reviewed & are unremarkable except as noted in HPI and below Cardiovascular Cardiovascular: Denies chest pain Exam Const General: cooperative [facility] Mouth: moist mucous membranes Eyes Conjunctivae: normal conjunctivae Sclera: normal sclerae Resp Auscultation: clear to auscultation bilaterally, no rales, no rhonchi and no wheezes Cardio Rate: tachycardic Rhythm: regular rhythm GI Palpation: soft, not firm, no guarding, no masses, not rigid and nontender Skin General skin exam: no rashes or lesions noted Neuro General: patient alert, patient awake, patient oriented x3 and tone normal Extrem General: no edema Psych Appearance: grossly normal Mental Status: mental status grossly normal Speech and Movement: speech and movement normal Affect: anxious affect Attitude: cooperative Course Vital Signs Vital signs: Vital Signs Temperature 37.0 C 11/21/23 07:13 Pulse 132 H 11/21/23 07:13 Respiratory Rate 18 11/21/23 07:13 Blood Pressure 135/80 11/21/23 07:13 Pulse Oximetry 96 11/21/23 07:13 Temperature 37.0 C 11/21/23 07:13 Pulse 132 H 11/21/23 07:13 Respiratory Rate 18 11/21/23 07:13 Blood Pressure 135/80 11/21/23 07:13 Pulse Oximetry 96 11/21/23 07:13 Oxygen Delivery Method Room Air 11/21/23 07:13 Oxygen Flow Rate 0 11/21/23 07:13 Medical Decision Making 8:00??28-year-old male with multiple medical problems, frequent ED visits, here today with concern that his magnesium level is elevated. Patient recently noted to have hypomagnesemia and had his magnesium supplement dosing increased from 500 daily to 500 twice a day. Patient is feeling like his heart is racing. He is tachycardic. Considered arrhythmia. EKG was reviewed and interpreted by me: Sinus tachycardia 119 bpm, normal axis, nondiagnostic, please see report. Consider hypothyroidism and will check TSH and reflex T4. Consider electrolyte abnormalities including hypomagnesemia. Will check chemistry. Suspect anxiety contributing today. 934 --Labs reviewed: Patient continues to have hypomagnesemia although improved to 1.7. Patient reassessed and tachycardia has resolved. Labs were discussed with the patient. I recommended he decrease magnesium dosing to 750 mg daily. Will divide 3 times daily. Instructed the patient follow-up with his PCP. Patient understands importance of timely follow-up. Usual customary discharge instructions were reviewed. Lab Data Lab results reviewed: Yes I reviewed the patient's lab results. Labs: Laboratory Tests Range/Units 11/21/23 07:58 WBC (4.4-10.8) 10^3/uL 7.06 RBC (4.36-5.78) 10^6/uL 3.98 L Hgb (13.5-17.5) g/dL 11.5 L Hct (40.0-50.0) % 34.9 L MCV (80-95) fL 88 MCH (27.0-33.0) pg 28.9 MCHC (32.0-36.0) % 33.0 RDW (11.8-14.1) % 13.0 Plt Count (130-400) 10^3/uL 290 MPV (8.0-11.0) fL 10.1 Sodium (136-145) mmol/L 142 Potassium (3.5-5.1) mmol/L 3.9 Chloride (98-107) mmol/L 103 Carbon Dioxide (21.0-32.0) mmol/L 32.1 H Anion Gap (3-11) mmol/L 6.9 BUN (7-18) mg/dL 16 Creatinine (0.70-1.30) mg/dL 1.3 Est GFR (CKD-EPI 2020) (mL/min/1.73m2) 75.79 Glucose (74-106) mg/dL 113 H Calcium (8.5-10.1) mg/dL 8.5 Magnesium (1.8-2.4) mg/dL 1.7 L TSH (0.36-3.74) uIU/mL 4.03 H Free T4 (0.76-1.46) ng/dL 0.90 Quality:SDOH Health Related Social Needs: Health related social needs transpo insecurity PFSH All Active Problems (Updated 11/21/23 @ 09:27 by Lester Bundy MD) Hypomagnesemia (Acute) Anxiety (Chronic) Anxiety (Chronic) Hypomagnesemia (Acute) Elevated TSH (Acute) Congestion of upper respiratory tract (Acute) Chest pain (Acute) Strain of right groin (Acute) Chronic abdominal pain (Acute) Nausea & vomiting (Acute) Abdominal pain (Acute) Nausea (Acute) Abdominal bloating (Acute) Hypocalcemia (Acute) Hypomagnesemia (Acute) Chest discomfort (Acute) Hypomagnesemia (Acute) Bronchitis (Acute) 10/08/2023 - Dx @ 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 ED Left arm numbness (Acute) Gynecomastia, male (Acute) b/l, per CT (Jul 2022).. Possible 2' Methadone, Clnzpm (?). Surg eval (+)/No further action. History of electrolyte imbalance (Acute) Neck pain on left side (Acute) with shoulder, upper back pain.. torticollis, radiating into left hip/leg Pulmonary nodule 1 cm or greater in diameter (Chronic) Therapeutic opioid induced constipation (Acute) Sphincter of Oddi dysfunction (Chronic) Abnormal CT scan, kidney (Acute) Intrahepatic bile duct dilation (Acute) Common bile duct dilatation (Chronic) Has been dilated for quite some time, now more-so. Normal LFTs. Known gallstones. Abdominal pain (Acute) Iatrogenic hypocalcemia (Acute) Multiple endocrine neoplasia type I (Chronic) Chronic constipation (Chronic) Depression (Chronic) Hypomagnesemia (Chronic) Hypocalcemia (Chronic) Depression (Chronic) Suicidal ideation (Acute) Elevated parathyroid hormone (Acute) Family history of coronary arteriosclerosis (Chronic) Father of SD at 50, mother had SD at 42 Severe anxiety with panic (Chronic) Cellulitis (Acute) Medical History CKD (chronic kidney disease) stage 2, GFR 60-89 ml/min GFR 64-65, with Hx FLORESITA and GFR < 45 Primary hyperparathyroidism Complex medical condition Serious electrolyte imbalances, with gynecomastia, possible MEN Dx, CKD and anemia with baseline anxiety and Hx PTSD. Hypocalcemia Anxiety Depression Hyperlipidemia Family history of multiple endocrine neoplasia, type 1 PTSD (post-traumatic stress disorder) Per pt. states no triggers at this time. Surgical History H/O parathyroidectomy Family History Mother Anxiety Asthma Depression Sister Anxiety Depression Father Cancer lung & stomach Depression Diabetes Hypertension MEN 1 (multiple endocrine neoplasia) Social History Smoking/Tobacco Use Status: Never Smoking risk assessment performed?: Yes Alcohol Intake: never Drug use: Rarely Substance use type: does not use and former substance user Adopted: No Caregiver/Support person: No Foster care: No Household members: none Housing: apartment Number of Children: 0 Communication Needs: None Education Level: high school Do you need help understanding health information?: Never current occupation: [employer] Pets and animals: Yes (Ally) Pets and animals: dog(s) Sexually active: No Do you think of yourself as: straight/heterosexual Current gender identity: male What is your relationship status?: How often do you talk on the phone with friends or family?: twice per week How often do you get together with friends or relatives?: never Do you belong to any clubs or organized social groups?: no Panel score (0-1 are the most socially isolated patients): 0 What type of physical activity do you participate in: walking Duration: 15-30 minutes/day Frequency: 5-6 times per week Maryam/Pentecostal: Rastafarian Special maryam needs: No Seatbelt use: always Helmet use: Yes Helmet use: always Drive intox or ride w/intox transit bus 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
[2023-11-21 07:59] LABS: HCT 34.9 % (40.0-50.0); HGB 11.5 g/dL (13.5-17.5); MCH 28.9 pg (27.0-33.0); MCV 88 fL (80-95); MPV 10.1 fL (8.0-11.0); Platelet Count 290 10^3/uL (130-400); RBC 3.98 10^6/uL (4.36-5.78); RDW-SD 41.6 fL; WBC 7.06 10^3/uL (4.4-10.8)
[2023-11-21 08:28] LABS: Anion Gap 6.9 mmol/L (3-11); BUN 16 mg/dL (7-18); CO2 32.1 mmol/L (21.0-32.0); CREATININE 1.3 mg/dL (0.70-1.30); Calcium 8.5 mg/dL (8.5-10.1); Chloride 103 mmol/L (98-107); Estimated GFR 75.79 (mL/min/1.73m2); Glucose 113 mg/dL (74-106); Magnesium 1.7 mg/dL (1.8-2.4); Potassium 3.9 mmol/L (3.5-5.1); Sodium 142 mmol/L (136-145); TSH (W/Ref FT4) 4.03 uIU/mL (0.36-3.74)
[2023-11-21 08:40] VITALS: PULSE 86; RESP 15; O2SAT 94
[2023-11-21 09:30] VITALS: PULSE 91; RESP 16
--- NOTE | 2023-11-22 12:12 | NUR.NOTE ---
Duplicate EKG order cancelled. Nursing Note:
== END 2023-11-21 09:44 | disposition home or self-care (01) ==
PROVIDERS: Emergency Provider Student in an Organized Health Care Education/Training Program; PCP Family Medicine
DX: E83.42 Hypomagnesemia (principal); F41.9 Anxiety disorder, unspecified; R00.2 Palpitations; M62.838 Other muscle spasm
CPT/HCPCS: 80048; 85027; 93005; 99283; 83735; 84439; 84443; 93010

== ENCOUNTER 2023-11-26 06:13 | PSDC | payer MEDICAID, SELFPAY ==
--- NOTE | 2023-11-25 16:19 | W.PM.DSUDISC ---
Date of service: 11/26/23 Time of Service: 09:06 Discharge Plan Disposition Patient Disposition: Home Condition: Good Discharge Details Reason For Visit: Laparoscopic cholecystectomy Attending Provider: Issac Pulido Primary Care Provider: Brendon Vivar Home Meds and New Rx's Prescriptions: Continued gabapentin 300 mg capsule 300 mg PO BID Qty: 180 3RF cyclobenzaprine 10 mg tablet 10 mg PO TID PRN (Reason: muscle spasm) Qty: 30 3RF methadone 10 mg/5 mL solution 105 mg PO QAM calcitriol 0.5 mcg capsule 0.5 mcg PO BID Qty: 360 3RF Hold Instructions: Resume on 06/15/22. diclofenac sodium 1 % gel 4 g topical QID Qty: 100 6RF Rx Instructions: apply to single knee, ankle, foot; for foot includes sole/toes/top of foot polyethylene glycol 3350 17 gram/dose powder 17 g PO DAILY omeprazole 40 mg capsule,delayed release(DR/EC) 40 mg PO DAILY Qty: 90 3RF clonazepam 1 mg tablet 1 mg PO BID Qty: 56 1RF famotidine 20 mg tablet 20 mg PO BID calcium carbonate [Tums] 200 mg calcium (500 mg) tablet,chewable 2,000 mg PO BID Hold Instructions: Resume on 05/12/23. Please hold your nightly dose tonight and your a.m. dose tomorrow morning. prochlorperazine maleate 5 mg tablet 5 mg PO TID PRN (Reason: acute nausea) Qty: 30 0RF ondansetron 4 mg tablet,disintegrating 4 mg PO Q8H PRN (Reason: nausea and vomiting) Qty: 20 0RF simethicone 125 mg tablet,chewable 125 mg PO QID PRN (Reason: abdominal distention) Qty: 20 0RF magnesium gluconate 27 mg magnesium (500 mg) tablet 13.5 mg PO TID Qty: 60 3RF Discharge Instructions Instructions: Cholecystectomy, Laparoscopic Surgery Additional Instructions: Pedro Pablo, we were able to remove your gallbladder today just as we discussed. Everything went very smoothly, and hopefully will make a quick recovery. I would like you to keep your lifting less than 10 pounds until I see you in the office. I have provided a prescription for medication you are called tramadol. Use it if you need it for pain. Otherwise, Tylenol and ibuprofen should be your first-line of treatment. If you need anything at all, please do not hesitate to call. Otherwise we look forward to seeing you at your postoperative visit. 1. Resume all of your regular medications. 2. Alternate heating pads and ice packs as needed for pain. 3. Alternate tylenold and ibuprofen every 6 hours for the first two days. Use tramadol if needed for more severe pain 4. Leave bandage in place for 24 hours, then remove. 5. Shower with warm soapy water. Pat dry. Use a bandaid if needed to protect your clothing. 6. No soaking or tub baths until I see you in the office. 7. No heavy lifting until I see you in the office. 8. Call the office (or go directly to the emergency room after hours) if you notice any of the following: Develop chills (warm to touch), or if you have a thermometer and your temperature is above 101 Difficulty breathing or difficultly swallowing Persistent vomiting Any bleeding ? exceeding one tablespoon 9. Call your physician if the site where your intravenous was started becomes red, swollen, painful, and warm to touch. Activity:: no heavy lifting Remove Dressings/Wound Care:: 24 hours Shower/Bathe:: 24 hours Discharge Orders Discharge Orders: Discharge Order (Routine); Ordered 11/25/23 Ordered By: Issac Pulido DS: Diagnosis Discharge Diagnosis (1) Biliary colic: Status: Inactive Asessment and Plan: Status postcholecystectomy. Outpatient postoperative follow-up
--- NOTE | 2023-11-25 16:27 | W.PM.OP ---
Date of service: 11/26/23 Time of Service: 09:07 Operative Note Operative Note DATE OF PROCEDURE: 11/26/23 PRE-OP DIAGNOSIS: Biliary colic PROCEDURE: Laparoscopic cholecystectomy SURGEON: Issac Pulido CHIP BIN CONVEYOR TENDER: Cristel Dobson ANESTHESIA TYPE: General LMA/ETT Refer to Anesthesia Record ESTIMATED BLOOD LOSS: 25 PATHOLOGY: other (Gallbladder) COMPLICATIONS: None Patient was transported to: PACU Patient's condition: stable Indications: Pedro Pablo is a 28-year-old male with chronic abdominal pain and cholelithiasis. He is interested in a laparoscopic cholecystectomy to rule out biliary colic as a source of his abdominal pain. Procedure Description: After satisfactory induction of general anesthesia, I prepped and draped the abdomen in usual fashion. Next, I began with a periumbilical incision. I dissected down to the fascia and elevated it with Surjit clamps. I incised it sharply. Next, I passed a 12 mm operating port in the umbilical site. I secured it to the fascia with 0 Vicryl stitches. I then insufflated the peritoneal cavity. Next I inserted a 5 mm 30 degree scope and examined the underlying viscera. There was no evidence of injury created upon entry. I then placed the patient in some reverse Trendelenburg and left side down positioning. Then, with the assistance of the laparoscope, I used local anesthetic to anesthetize the midepigastric and 2 right upper quadrant port sites. Under the vision of the laparoscope, I passed 3 more 5 mm ports. I then grasped the gallbladder fundus and elevated cephalad. With the assistance of indocyanine green visualization, I began by dissecting the gallbladder infundibulum. I worked in a lateral to medial fashion. Once I skeletonized the cystic duct and cystic artery, with a satisfactory critical view of safety, I doubly clipped and divided them. I then used electrocautery to dissect the gallbladder off the gallbladder fossa. I passed the gallbladder into an Endo Catch bag and removed it by way of the umbilical site. I examined the surgical field. It was hemostatic. I then removed the 5 mm ports under the vision of the laparoscope. Finally, I removed the umbilical port site and closed the fascia with Vicryl stitches. Sites were irrigated, and the skin was closed with subcuticular stitches. Bandages were applied, patient was awakened from anesthesia, and transferred to the recovery unit.
--- NOTE | 2023-11-25 18:42 | ANES.PREOP_ITS ---
General Info Date of Service Date Performed: 11/26/23 Height: 5 ft 10 in Weight: 128 kg Body Mass Index (BMI): 40.4 Surgical Procedure: Operation Date: 11/26/23 07:40 Proposed Procedure Side Surgeon p Cholecystectomy Laparoscopic Issac Pulido MD Meds Allergies and Home Medications Allergies Allergy/AdvReac Type Severity Reaction Status Date / Time codeine Allergy Intermediate pass out Verified 11/26/23 06:23 Penicillins Allergy Skin Rash Verified 11/26/23 06:23 amoxicillin AdvReac Intermediate Nausea Verified 11/26/23 06:23 dextromethorphan AdvReac Intermediate Other (See Verified 11/26/23 06:23 [From NyQuil] Comment) doxylamine [From NyQuil] AdvReac Intermediate Other (See Verified 11/26/23 06:23 Comment) pseudoephedrine [From NyQuil] AdvReac Intermediate Other (See Verified 11/26/23 06:23 Comment) Home Medication Medication Instructions Recorded calcium carbonate (Tums) 2,000 mg PO BID 02/02/23 calcitriol 0.5 mcg capsule 0.5 mcg PO BID #360 caps 04/21/23 diclofenac sodium 1 % topical gel 4 g topical QID #100 grams 04/21/23 methadone 10 mg/5 mL oral solution 105 mg PO QAM 06/12/23 polyethylene glycol 3350 17 17 g PO DAILY 06/12/23 gram/dose oral powder gabapentin 300 mg capsule 300 mg PO BID #180 caps 06/23/23 omeprazole 40 mg capsule,delayed 40 mg PO DAILY #90 caps 07/21/23 release cyclobenzaprine 10 mg tablet 10 mg PO TID PRN muscle spasm #30 08/18/23 tabs prochlorperazine maleate 5 mg 5 mg PO TID PRN acute nausea #30 09/06/23 tablet tabs ondansetron 4 mg disintegrating 4 mg PO Q8H PRN nausea and 10/30/23 tablet vomiting #20 tabs simethicone 125 mg chewable tablet 125 mg PO QID PRN abdominal 10/30/23 distention #20 tabs clonazepam 1 mg tablet 1 mg PO BID #56 tabs 11/07/23 magnesium gluconate 27 mg 13.5 mg (1/2 x 27 mg magnesium 11/21/23 magnesium (500 mg) tablet (500 mg)) PO TID #60 tabs famotidine 20 mg tablet 20 mg PO BID 11/24/23 Current Visit Medications: Current Medications Generic Name Dose Route Start Last Admin Trade Name Janesq PRN Reason Stop Dose Admin Tramadol HCl 50 mg 11/25/23 16:28 Tramadol 50 Mg Tab PO 12/25/23 16:27 Q6H PRN PRN Pain PFSH Active Problems Active Problems: Problem Status Onset Code Hypomagnesemia E83.42 Anxiety F41.9 Anxiety F41.9 Hypomagnesemia E83.42 Elevated TSH R79.89 Congestion of upper respiratory tract J39.8 Chest pain R07.9 Strain of right groin S76.211A Chronic abdominal pain R10.9, G89.29 Nausea & vomiting R11.2 Abdominal pain R10.9 Nausea R11.0 Abdominal bloating R14.0 Hypocalcemia E83.51 Hypomagnesemia E83.42 Chest discomfort R07.89 Hypomagnesemia E83.42 Bronchitis J40 Bronchitis J40 Testicle lump N50.89 Hamstring tendinitis of left thigh M76.892 Pes anserine bursitis M70.50 Hypernatremia E87.0 Cervical radiculopathy M54.12 URI (upper respiratory infection) J06.9 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 Neck pain on left side M54.2 Constipation K59.00 Grief reaction F43.21 Opiate dependence, continuous F11.20 Cellulitis L03.90 Cholelithiases K80.20 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 S62.001K Inflammatory arthritis M19.90 Costochondritis 12/13/22 M94.0 Left arm numbness R20.0 Gynecomastia, male N62 History of electrolyte imbalance Z86.39 Neck pain on left side M54.2 Pulmonary nodule 1 cm or greater in diameter R91.1 Therapeutic opioid induced constipation K59.03, T40.2X5A Sphincter of Oddi dysfunction K83.[address] scan, kidney R93.429 Intrahepatic bile duct dilation K83.8 Common bile duct dilatation K83.8 Abdominal pain R10.9 Iatrogenic hypocalcemia E83.51 Multiple endocrine neoplasia type I E31.21 Chronic constipation K59.09 Depression F32.A Hypomagnesemia E83.42 Hypocalcemia E83.51 Depression F32.A Suicidal ideation R45.851 Elevated parathyroid hormone E34.9 Family history of coronary arteriosclerosis Z82.49 Severe anxiety with panic F41.0 Cellulitis L03.90 Medical History Medical History CKD (chronic kidney disease) stage 2, GFR 60-89 ml/min GFR 64-65, with Hx FLORESITA and GFR < 45 Primary hyperparathyroidism Complex medical condition Serious electrolyte imbalances, with gynecomastia, possible MEN Dx, CKD and anemia with baseline anxiety and Hx PTSD. Hypocalcemia Anxiety Depression Hyperlipidemia Family history of multiple endocrine neoplasia, type 1 PTSD (post-traumatic stress disorder) Per pt. states no triggers at this time. Surgical History Surgical History H/O parathyroidectomy Tobacco Smoking/Tobacco Use Status: Never Alcohol Alcohol Intake: never Substance Use Substance use: Current Sobriety Substance use type: former substance user Vital Signs and Lab Results Vital Signs Most Recent Vital Signs in EMR: Temp Pulse Resp BP Pulse Ox 36.7 C 128 H 18 120/80 96 11/26/23 06:37 11/26/23 06:37 11/26/23 06:37 11/26/23 06:37 11/26/23 06:37 Lab Results Blood Type / Crossmatch: No Data to Display Complete Blood Count: White Blood Count 7.06 10^3/uL (4.4-10.8) 11/21/23 07:58 Red Blood Count 3.98 10^6/uL (4.36-5.78) L 11/21/23 07:58 Hemoglobin 11.5 g/dL (13.5-17.5) L 11/21/23 07:58 Hematocrit 34.9 % (40.0-50.0) L 11/21/23 07:58 Platelet Count 290 10^3/uL (130-400) 11/21/23 07:58 Venous Blood Lactate 1.1 mmol/L (0.6-1.4) 11/06/23 20:50 Complete Metabolic Panel: Sodium 142 mmol/L (136-145) 11/21/23 07:58 Potassium 3.9 mmol/L (3.5-5.1) 11/21/23 07:58 Chloride 103 mmol/L (98-107) 11/21/23 07:58 Carbon Dioxide 32.1 mmol/L (21.0-32.0) H 11/21/23 07:58 BUN 16 mg/dL (7-18) 11/21/23 07:58 Creatinine 1.3 mg/dL (0.70-1.30) 11/21/23 07:58 Est GFR (CKD-EPI 2020) 75.79 (mL/min/1.73m2) 11/21/23 07:58 Magnesium 1.7 mg/dL (1.8-2.4) L 11/21/23 07:58 Calcium 8.5 mg/dL (8.5-10.1) 11/21/23 07:58 Albumin 3.3 g/dL (3.4-5.0) L 11/17/23 12:00 Glucose 113 mg/dL (74-106) H 11/21/23 07:58 Liver Function Panel: Alanine Aminotransferase (ALT/SGPT) 52 U/L (16-63) 11/17/23 12: 00 Aspartate Amino Transf (AST/SGOT) 30 U/L (15-37) 11/17/23 12:00 Coagulation Panel: D-Dimer 246 ng/mlFEU (<500) 11/07/23 23:37 Cardiac Panel: Troponin I < 50 ng/L (< or =60) 11/07/23 Arterial Blood Gas: No Data to Display Venous Blood Gas: No Data to Display Pancreas Panel: Lipase 27 U/L (16-77) 11/04/23 13:50 Thyroid Panel: Thyroid Stimulating Hormone (TSH) 4.03 uIU/mL (0.36-3.74) H 11/21/23 07:58 Infectious Disease: No Data to Display Blood Cultures: No Data to Display Toxicology Panel: No Data to Display Imaging and Studies Imaging and Studies Study information below may be from another EMR and interpreted by another provider. Please see original notes in EMR for more complete details. EKG Summary: 12/07: sinus tach. Stress Test Summary: 09/25/21: Stress ECG Conclusion 1. The resting electrocardiogram showed vertical axis, otherwise normal 2. Patient exercised on the Tonny protocol and completed a workload of 13.5 METS 3. Normal hemodynamic response to exercise. Patient achieved 87% of predicted heart rate for age 4. There was no electrocardiographic evidence of myocardial ischemia 5. There were no significant dysrhythmias Jean Treadmill Score is 7.0 which is Low risk. Anesthesia Assessment and Plan Anesthesia History Personal History: No History of Anesthesia Complications Family History: No Family History of Anesthesia Complications Exercise Tolerance Exercise Tolerance: Metabolic Equivalents>4 Cardiac & Pulmonary Exam Cardiac Exam: Normal S1/S2 Heart Sounds Pulmonary Exam: Clear Bilateral Breath Sounds and Active Dry Cough (bronchitis a month ago, residual cough. ) Implantable Cardiac Device Does patient have a Pacemaker or an ICD?: No Airway Exam Known Difficult Airway: No Mallampati Class: 3 Mouth Opening: Normal (> 3cm) Thyromental Distance: Greater than 3 cm Neck Range of Motion: Full ROM Neck Circumference: Normal Teeth Condition: Edentulous ASA Classification ASA Score: ASA 3 Emergency Case?: No NPO Status NPO Status: NPO Clears >2 hours, Solids >8 hours Anesthesia Plan Resuscitation Status: Full Code Anesthesia Technique: General Anesthesia Airway Planned: Endotracheal Tube Monitors Used: Standard Monitors Preoperative Comments:: 28 yo male for lap thad. Sig PMHx: anxiety/depression, cervical radiculopathy (denies issues, good range of motion without issue), bells palsy, CKDII, PTSD, opioid dependence (methadone 105 mg/day), MEN1. Previous Anes: -EGD, ketamine/midaz, prop, no issues.
[2023-11-26] VITALS (17 sets, daily range): BP systolic 119–141; BP diastolic 60–93; PULSE 78–128; RESP 11–22; TEMP 36.1–37; O2SAT 91–97; BMI 40.4
--- NOTE | 2023-11-26 07:17 | HPE_ITS ---
Assessment and Plan Assessment and plan (1) Biliary colic: Status: Inactive Assessment and plan: Proceed with laparoscopic cholecystectomy today History of Present Illness History of Present Illness Chief Complaint: Abdominal pain Narrative: Pedro Pablo is 28 years old. He has a past medical history that significant for multiple endocrine neoplasia, as well as pretty significant anxiety. He has gallstones, and has been seen in the emergency department on multiple occasions, with extensive workup, for right upper quadrant pain. We have maximized nonoperative interventions, but he still has discomfort. We discussed the nature of laparoscopic cholecystectomy in detail, as well as what to expect in terms of the nature of the procedure as well as the recovery. [facility] All Active Problems Hypomagnesemia (Acute) Anxiety (Chronic) Anxiety (Chronic) Hypomagnesemia (Acute) Elevated TSH (Acute) Congestion of upper respiratory tract (Acute) Chest pain (Acute) Strain of right groin (Acute) Chronic abdominal pain (Acute) Nausea & vomiting (Acute) Abdominal pain (Acute) Nausea (Acute) Abdominal bloating (Acute) Hypocalcemia (Acute) Hypomagnesemia (Acute) Chest discomfort (Acute) Hypomagnesemia (Acute) Bronchitis (Acute) 10/08/2023 - Dx @ [facility] E/R Chani MORALES Bronchitis (Acute) Testicle lump (Acute) Hamstring tendinitis of left thigh (Acute) Pes anserine bursitis (Acute) Hypernatremia (Acute) Cervical radiculopathy (Acute) URI (upper respiratory infection) (Acute) Left-sided Flower's palsy (Acute) Neck pain on left side (Acute) Constipation (Acute) Grief reaction (Chronic) Opiate dependence, continuous (Acute) Cellulitis (Acute) Cholelithiases (Acute) 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 Possible 2' Methadone, Clnzpm (?). Surg eval (+)/No further action. History of electrolyte imbalance (Acute) Neck pain on left side (Acute) with shoulder, upper back pain.. torticollis, radiating into left hip/leg Pulmonary nodule 1 cm or greater in diameter (Chronic) Therapeutic opioid induced constipation (Acute) Sphincter of Oddi dysfunction (Chronic) Abnormal CT scan, kidney (Acute) Intrahepatic bile duct dilation (Acute) Common bile duct dilatation (Chronic) Has been dilated for quite some time, now more-so. Normal LFTs. Known gallstones. Abdominal pain (Acute) Iatrogenic hypocalcemia (Acute) Multiple endocrine neoplasia type I (Chronic) Chronic constipation (Chronic) Depression (Chronic) Hypomagnesemia (Chronic) Hypocalcemia (Chronic) Depression (Chronic) Suicidal ideation (Acute) Elevated parathyroid hormone (Acute) Family history of coronary arteriosclerosis (Chronic) Father of [place] at 50, mother had [place] at 42 Severe anxiety with panic (Chronic) Cellulitis (Acute) Medical History CKD (chronic kidney disease) stage 2, GFR 60-89 ml/min GFR 64-65, with Hx LFORESITA and GFR < 45 Primary hyperparathyroidism Complex medical condition Serious electrolyte imbalances, with gynecomastia, possible MEN Dx, CKD and anemia with baseline anxiety and Hx PTSD. Hypocalcemia Anxiety Depression Hyperlipidemia Family history of multiple endocrine neoplasia, type 1 PTSD (post-traumatic stress disorder) Per pt. states no triggers at this time. Surgical History H/O parathyroidectomy Family History Mother Anxiety Asthma Depression Sister Anxiety Depression Father Cancer lung & stomach Depression Diabetes Hypertension MEN 1 (multiple endocrine neoplasia) Social History Smoking/Tobacco Use Status: Never Smoking risk assessment performed?: Yes Alcohol Intake: never Drug use: Current Sobriety Substance use type: former substance user Adopted: No Caregiver/Support person: No Foster care: No Household members: none Housing: apartment Number of Children: 0 Communication Needs: None Education Level: high school Do you need help understanding health information?: Never current occupation: [employer] Pets and animals: Yes (Ally) Pets and animals: dog(s) Sexually active: No Do you think of yourself as: straight/heterosexual Current gender identity: male What is your relationship status?: How often do you talk on the phone with friends or family?: twice per week How often do you get together with friends or relatives?: never Do you belong to any clubs or organized social groups?: no Panel score (0-1 are the most socially isolated patients): 0 What type of physical activity do you participate in: walking Duration: 15-30 minutes/day Frequency: 5-6 times per week Maryam/Jehovah'S Witness: Rastafari Special maryam needs: No Seatbelt use: always Helmet use: Yes Helmet use: always Drive intox or ride w/intox cdl b 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 Meds Allergies and Home Medications Allergies Allergy/AdvReac Type Severity Reaction Status Date / Time codeine Allergy Intermediate pass out Verified 11/26/23 06:23 Penicillins Allergy Skin Rash Verified 11/26/23 06:23 amoxicillin AdvReac Intermediate Nausea Verified 11/26/23 06:23 dextromethorphan AdvReac Intermediate Other (See Verified 11/26/23 06:23 [From NyQuil] Comment) doxylamine [From NyQuil] AdvReac Intermediate Other (See Verified 11/26/23 06:23 Comment) pseudoephedrine [From NyQuil] AdvReac Intermediate Other (See Verified 11/26/23 06:23 Comment) Home Medications Medication Instructions Recorded Confirmed Type calcium carbonate (Tums) 2,000 mg PO BID 02/02/23 11/26/23 History calcitriol 0.5 mcg capsule 0.5 mcg PO BID #360 caps 04/21/23 11/26/23 Rx diclofenac sodium 1 % topical gel 4 g topical QID #100 grams 04/21/23 11/26/23 Rx methadone 10 mg/5 mL oral solution 105 mg PO QAM 06/12/23 11/26/23 History polyethylene glycol 3350 17 17 g PO DAILY 06/12/23 11/26/23 History gram/dose oral powder gabapentin 300 mg capsule 300 mg PO BID #180 caps 06/23/23 11/26/23 Rx omeprazole 40 mg capsule,delayed 40 mg PO DAILY #90 caps 07/21/23 11/26/23 Rx release cyclobenzaprine 10 mg tablet 10 mg PO TID PRN muscle spasm #30 08/18/23 11/26/23 Rx tabs prochlorperazine maleate 5 mg 5 mg PO TID PRN acute nausea #30 09/06/23 11/26/23 Rx tablet tabs ondansetron 4 mg disintegrating 4 mg PO Q8H PRN nausea and 10/30/23 11/26/23 Rx tablet vomiting #20 tabs simethicone 125 mg chewable tablet 125 mg PO QID PRN abdominal 10/30/23 11/26/23 Rx distention #20 tabs clonazepam 1 mg tablet 1 mg PO BID #56 tabs 11/07/23 11/26/23 Rx magnesium gluconate 27 mg 13.5 mg (1/2 x 27 mg magnesium 11/21/23 11/26/23 Rx magnesium (500 mg) tablet (500 mg)) PO TID #60 tabs famotidine 20 mg tablet 20 mg PO BID 11/24/23 11/26/23 History Exam Const General: cooperative, healthy appearing and not in acute distress Neck Neck: normal visual inspection, no lymphadenopathy and supple Thyroid: thyroid normal Resp Effort & Inspection: normal respiratory effort Auscultation: clear to auscultation bilaterally Cardio Jugular venous pressure: no JVD Rate: regular rate Rhythm: regular rhythm Heart Sounds: S1 normal and S2 normal GI Inspection: normal to inspection Palpation: soft, no guarding, no hernias and nontender Percussion: normal to percussion Auscultation: normal bowel sounds Neuro General: patient alert, patient awake and patient oriented x3 Psych Appearance: grossly normal Results Last Vital Signs Temp 98.1 F 11/26/23 06:37 Pulse 128 H 11/26/23 06:37 Resp 18 11/26/23 06:37 BP 120/80 11/26/23 06:37 Pulse Ox 96 11/26/23 06:37
[2023-11-26] MEDS: Lactated Ringers 1,000 ML 80 ML IV (07:20)
[2023-11-26] MEDS: Indocyanine green 25 MG VIAL 5 MG IVP (07:21)
[2023-11-26] MEDS: Celecoxib 200 MG CAP (07:21)
[2023-11-26] MEDS: Acetaminophen 500 MG TAB 1000 MG PO (07:21)
[2023-11-26] MEDS: ceFAZolin 2 GM/50 ML BAG IVPB (07:28)
[2023-11-26] MEDS: Bupivacaine 0.25% Pres-Free 30 ML VIAL (07:50)
--- NOTE | 2023-11-26 08:47 | GB_PTH ---
PATIENT: Pedro Pablo Cortes LOC: [facility] U#:[id number] AGE/SX: 28/M ROOM: RE11/26/[address]: Issac Pulido MD : [id number] BED: DIS: 11/26/2023 SPEC #: [id number] RECD: 11/26/23 13:07 STATUS: NIKO RE #: [id number] IDANIA: 11/26/23 08:[address]: Issac Pulido DEPT: Surgical Specimen RECD BY: Luh Martinez ENTERED: 11/26/23 13:07 SP TYPE: GB OTHR DR: Brendon Vivar DO Tissues: 1 - GALLBLADDER Procedures: GROSS AND MICRO LEVEL 3 Comments: [id number]
[2023-11-26] MEDS: HYDROmorphone 2 MG/ML SYR IVP (09:30)
[2023-11-26] MEDS: LORazepam 2 MG/ML VIAL 0.5 MG IVP (09:49)
--- NOTE | 2023-11-26 10:13 | W.ANESPOSTOP ---
Postoperative Evaluation Date, Time and Location Date Performed: 11/26/23 Time Performed: 09:50 Patient Location: PACU Vital Signs Most Recent Imported Vital Signs: Most Recent Vital Signs Temp Pulse Resp BP Pulse Ox 37 C 97 H 17 123/78 94 11/26/23 09:24 11/26/23 09:24 11/26/23 09:24 11/26/23 09:24 11/26/23 09:24 Pain Score Most Recent Pain Score: Most Recent Pain Score Pain Level 6 11/26/23 09:24 Assessment Mental Status: Arousable with meaningful communication Airway and Respiratory Function: Patent airway with normal (patient baseline) respiratory exam Cardiovascular Function: Hemodynamically Stable Hydration Status: Adequately Hydrated Nausea & Vomiting: Active Nausea or Vomiting Present Nausea and Vomiting Management: Nausea and vomiting active, being addressed with medication Pain: Pain is Moderate or Severe (5/10, getting med. ) Postoperative Pain Management: Pain being addressed with medication Peripheral Nerve Block: Patient did not receive a nerve block
== END 2023-11-26 12:48 | disposition home or self-care (01) ==
LOC: SUR 06:13
PROVIDERS: PCP Family Medicine; Visit Provider Surgery
PROC: 0FT44ZZ Resection of Gallbladder, Percutaneous Endoscopic Approach (ICD-10-PCS; CPT 47562; principal; 2023-11-26 07:30)
DX: K80.12 Calculus of gallbladder with acute and chronic cholecystitis without obstruction (principal); F43.10 Post-traumatic stress disorder, unspecified; F32.A Depression, unspecified; F41.9 Anxiety disorder, unspecified; E31.21 Multiple endocrine neoplasia [MEN] type I
CPT/HCPCS: 47562; 88304; J0665; J0690; J1100; J1170; J1171; J1885; J2060; J2250; J2405; J2704; J3475

== ENCOUNTER 2023-11-28 10:21 | Emergency (ER) | payer MEDICAID, SELFPAY ==
[2023-11-28 10:25] VITALS: BP 139/83; PULSE 119; RESP 14; TEMP 37.1; O2SAT 98
--- NOTE | 2023-11-28 10:33 | W.ED.GENAD ---
Discharge Plan Disposition Patient Disposition: Home Condition: Good Discharge Details Clinical Impression: Encounter for postoperative wound check Primary Care Provider: Brendon Vivar ED Provider: Steph Jones Home Meds and New Rx's Prescriptions: Continued gabapentin 300 mg capsule 300 mg PO BID Qty: 180 3RF cyclobenzaprine 10 mg tablet 10 mg PO TID PRN (Reason: muscle spasm) Qty: 30 3RF methadone 10 mg/5 mL solution 105 mg PO QAM calcitriol 0.5 mcg capsule 0.5 mcg PO BID Qty: 360 3RF Hold Instructions: Resume on 06/15/22. diclofenac sodium 1 % gel 4 g topical QID Qty: 100 6RF Rx Instructions: apply to single knee, ankle, foot; for foot includes sole/toes/top of foot polyethylene glycol 3350 17 gram/dose powder 17 g PO DAILY omeprazole 40 mg capsule,delayed release(DR/EC) 40 mg PO DAILY Qty: 90 3RF clonazepam 1 mg tablet 1 mg PO BID Qty: 56 1RF famotidine 20 mg tablet 20 mg PO BID calcium carbonate [Tums] 200 mg calcium (500 mg) tablet,chewable 2,000 mg PO BID Hold Instructions: Resume on 05/12/23. Please hold your nightly dose tonight and your a.m. dose tomorrow morning. prochlorperazine maleate 5 mg tablet 5 mg PO TID PRN (Reason: acute nausea) Qty: 30 0RF ondansetron 4 mg tablet,disintegrating 4 mg PO Q8H PRN (Reason: nausea and vomiting) Qty: 20 0RF simethicone 125 mg tablet,chewable 125 mg PO QID PRN (Reason: abdominal distention) Qty: 20 0RF magnesium gluconate 27 mg magnesium (500 mg) tablet 13.5 mg PO TID Qty: 60 3RF tramadol 50 mg tablet 50 mg PO Q8H PRNQty: 12 0RF Rx Instructions: Take 1 tablet by mouth up to every 8 hours if needed for severe pain. Discharge Instructions Additional Instructions: Wounds appear to be healing well. No evidence of infection or continued bleeding. Please continue with your postoperative instructions as forth by your general surgeon. Please keep your upcoming appointment with general surgery. If you develop any new or worsening symptoms please seek care urgently once again. Referrals: Brendon Vivar, [Primary Care Provider] - Issac Pulido MD [ [facility] STAFF PHYSICIAN] - [facility] General Date/Time Provider Initiated Documentation: 11/28/23 10:23. Limitations to Documentation: no limitations. Information obtained by: patient, RN notes reviewed and old records reviewed. History of Present Illness 28 year old M presents to the emergency department with the chief complaint of would like his surgical sites evaluated, described as moderate, with intensity rated at 4. Quality is described as aching, and is localized to the abdomen (improving post-surgical abdominal pain). Patient reports no radiation. Patient started experiencing this day(s) (2) and it has been constant (improving). Immobilization improves symptom(s), Movement worsens symptoms . Patient notes no other symptoms.. Patient did receive the following treatments prior to arrival, none Related Data Home Medications Medication Instructions Recorded Confirmed calcium carbonate (Tums) 2,000 mg PO BID 02/02/23 11/28/23 calcitriol 0.5 mcg capsule 0.5 mcg PO BID #360 caps 04/21/23 11/28/23 diclofenac sodium 1 % topical gel 4 g topical QID #100 grams 04/21/23 11/28/23 methadone 10 mg/5 mL oral solution 105 mg PO QAM 06/12/23 11/28/23 polyethylene glycol 3350 17 17 g PO DAILY 06/12/23 11/28/23 gram/dose oral powder gabapentin 300 mg capsule 300 mg PO BID #180 caps 06/23/23 11/28/23 omeprazole 40 mg capsule,delayed 40 mg PO DAILY #90 caps 07/21/23 11/28/23 release cyclobenzaprine 10 mg tablet 10 mg PO TID PRN muscle spasm #30 08/18/23 11/28/23 tabs prochlorperazine maleate 5 mg 5 mg PO TID PRN acute nausea #30 09/06/23 11/28/23 tablet tabs ondansetron 4 mg disintegrating 4 mg PO Q8H PRN nausea and 10/30/23 11/28/23 tablet vomiting #20 tabs simethicone 125 mg chewable tablet 125 mg PO QID PRN abdominal 10/30/23 11/28/23 distention #20 tabs clonazepam 1 mg tablet 1 mg PO BID #56 tabs 11/07/23 11/28/23 magnesium gluconate 27 mg 13.5 mg (1/2 x 27 mg magnesium 11/21/23 11/28/23 magnesium (500 mg) tablet (500 mg)) PO TID #60 tabs famotidine 20 mg tablet 20 mg PO BID 11/24/23 11/28/23 tramadol 50 mg tablet 50 mg PO Q8H PRN #12 tabs 11/26/23 11/28/23 Previous Rx's Medication Instructions Recorded calcitriol 0.5 mcg capsule 0.5 mcg PO BID #360 caps 04/21/23 diclofenac sodium 1 % topical gel 4 g topical QID #100 grams 04/21/23 gabapentin 300 mg capsule 300 mg PO BID #180 caps 06/23/23 omeprazole 40 mg capsule,delayed 40 mg PO DAILY #90 caps 07/21/23 release cyclobenzaprine 10 mg tablet 10 mg PO TID PRN muscle spasm #30 08/18/23 tabs prochlorperazine maleate 5 mg 5 mg PO TID PRN acute nausea #30 09/06/23 tablet tabs ondansetron 4 mg disintegrating 4 mg PO Q8H PRN nausea and 10/30/23 tablet vomiting #20 tabs simethicone 125 mg chewable tablet 125 mg PO QID PRN abdominal 10/30/23 distention #20 tabs clonazepam 1 mg tablet 1 mg PO BID #56 tabs 11/07/23 magnesium gluconate 27 mg 13.5 mg (1/2 x 27 mg magnesium 11/21/23 magnesium (500 mg) tablet (500 mg)) PO TID #60 tabs tramadol 50 mg tablet 50 mg PO Q8H PRN #12 tabs 11/26/23 Allergies Allergy/AdvReac Type Severity Reaction Status Date / Time codeine Allergy Intermediate pass out Verified 11/28/23 10:34 Penicillins Allergy Skin Rash Verified 11/28/23 10:34 amoxicillin AdvReac Intermediate Nausea Verified 11/28/23 10:34 dextromethorphan AdvReac Intermediate Other (See Verified 11/28/23 10:34 [From NyQuil] Comment) doxylamine [From NyQuil] AdvReac Intermediate Other (See Verified 11/28/23 10:34 Comment) pseudoephedrine [From NyQuil] AdvReac Intermediate Other (See Verified 11/28/23 10:34 Comment) General Stated Complaint: GenMedical ADRIANA: 4 Review of Systems Constitutional Constitutional: Reports as per HPI, Denies chills and Denies fever(s) Gastrointestinal Gastrointestinal: Reports abdominal pain (improving generalized discomfort postsurgical) and Reports change in stool character (had to strain more than typical today) Genitourinary Genitourinary: Reports system reviewed and no additional complaints, except as documented Musculoskeletal Musculoskeletal: Reports as per HPI Integumentary/Breasts Skin/Breast: Reports as per HPI Psychiatric Psychiatric: Reports anxiety Exam Const General: cooperative, healthy appearing, comfortable, no acute distress and well developed Nutritional Appearance: well nourished and overweight Orientation: alert and awake Resp Effort & Inspection: normal respiratory effort, able to speak in complete sentences and no respiratory distress Cardio Rate: regular rate Rhythm: regular rhythm GI Inspection: normal to inspection, non-distended and incision (incitions healing well with no erythema, warmth, drainage. Small ecchymosis) Palpation: soft, no hepatosplenomegaly, not firm, no guarding, no masses and nontender Skin General skin exam: other (incisions healing well) Neuro General: patient alert and patient awake Cognition: normal cognition Speech: speech normal Gait: normal gait Psych Appearance: grossly normal and well kempt Mental Status: mental status grossly normal Speech and Movement: speech and movement normal Mood: anxious mood Course Vital Signs Vital signs: Vital Signs Temperature 37.1 C 11/28/23 10:25 Pulse 119 H 11/28/23 10:25 Respiratory Rate 14 11/28/23 10:25 Blood Pressure 139/83 11/28/23 10:25 Pulse Oximetry 98 11/28/23 10:25 Temperature 37.1 C 11/28/23 10:25 Temperature Source Skin 11/28/23 10:25 Pulse 119 H 11/28/23 10:25 Respiratory Rate 14 11/28/23 10:25 Blood Pressure 139/83 11/28/23 10:25 Blood Pressure Position Sitting 11/28/23 10:25 Pulse Oximetry 98 11/28/23 10:25 Oxygen Delivery Method Room Air 11/28/23 10:25 Oxygen Flow Rate 0 11/28/23 10:25 Pain Level 4 11/28/23 10:25 Medical Decision Making Patient is a pleasant 28-year-old male, well-known to myself in the department, presenting today with chief complaint of wound evaluation after a laparoscopic cholecystectomy which was performed 2 days ago. He was advised he may remove the Band-Aids covering the wounds 24 hours postsurgery. However, patient waited until today and was concerned that there was a small amount of blood coming from one of the laparoscopic port sites. Did not feel comfortable removing the larger bandage over the umbilical incision. Wanted to have wounds evaluated for possible infection or continued bleeding. Reports that he continues to have some mild abdominal discomfort but otherwise is doing well. Has been using Tylenol and ibuprofen help with discomfort. Admits that his anxiety has been increased. On exam, patient appears anxious but otherwise nontoxic. Appears well-hydrated. Reports he has been drinking large amount of fluids. Incisions appear to be healing well no erythema, warmth, drainage. Abdominal exam is benign. Remove the large bandage this incision to is healing well. We discussed continued wound care. Encouraged follow the recommendations set forth by surgical team. Return precautions were discussed. All of his questions and concerns were addressed and he is agreement this plan. Has upcoming appointment already scheduled with his surgical team. Quality:[facility] Health Related Social Needs: Health related social needs transpo insecurity [facility] All Active Problems (Updated 11/28/23 @ 10:41 by ANDREW Magaña) Encounter for postoperative wound check (Acute) Hypomagnesemia (Acute) Anxiety (Chronic) Anxiety (Chronic) Hypomagnesemia (Acute) Elevated TSH (Acute) Congestion of upper respiratory tract (Acute) Chest pain (Acute) Strain of right groin (Acute) Chronic abdominal pain (Acute) Nausea & vomiting (Acute) Abdominal pain (Acute) Nausea (Acute) Abdominal bloating (Acute) Hypocalcemia (Acute) Hypomagnesemia (Acute) Chest discomfort (Acute) Bronchitis (Acute) 10/08/2023 - Dx @ [facility] E/R Chani MORALES Bronchitis (Acute) Testicle lump (Acute) Hamstring tendinitis of left thigh (Acute) Pes anserine bursitis (Acute) Hypernatremia (Acute) Cervical radiculopathy (Acute) URI (upper respiratory infection) (Acute) Left-sided Flower's palsy (Acute) Neck pain on left side (Acute) Constipation (Acute) Grief reaction (Chronic) Opiate dependence, continuous (Acute) Cellulitis (Acute) Cholelithiases (Acute) 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 Possible 2' Methadone, Clnzpm (?). Surg eval (+)/No further action. History of electrolyte imbalance (Acute) Neck pain on left side (Acute) with shoulder, upper back pain.. torticollis, radiating into left hip/leg Pulmonary nodule 1 cm or greater in diameter (Chronic) Therapeutic opioid induced constipation (Acute) Sphincter of Oddi dysfunction (Chronic) Abnormal CT scan, kidney (Acute) Intrahepatic bile duct dilation (Acute) Common bile duct dilatation (Chronic) Has been dilated for quite some time, now more-so. Normal LFTs. Known gallstones. Abdominal pain (Acute) Iatrogenic hypocalcemia (Acute) Multiple endocrine neoplasia type I (Chronic) Chronic constipation (Chronic) Depression (Chronic) Hypomagnesemia (Chronic) Hypocalcemia (Chronic) Depression (Chronic) Suicidal ideation (Acute) Elevated parathyroid hormone (Acute) Family history of coronary arteriosclerosis (Chronic) Father of ID at 50, mother had ID at 42 Severe anxiety with panic (Chronic) Cellulitis (Acute) Medical History (Updated 11/28/23 @ 10:41 by ANDREW Magaña) CKD (chronic kidney disease) stage 2, GFR 60-89 ml/min GFR 64-65, with Hx FLORESITA and GFR < 45 Primary hyperparathyroidism Complex medical condition Serious electrolyte imbalances, with gynecomastia, possible MEN Dx, CKD and anemia with baseline anxiety and Hx PTSD. Hypocalcemia Anxiety Depression Hyperlipidemia Family history of multiple endocrine neoplasia, type 1 PTSD (post-traumatic stress disorder) Per pt. states no triggers at this time. Surgical History (Updated 11/26/23 @ 14:49 by Adrianna Lisa) History of laparoscopic cholecystectomy (~11/2023) H/O parathyroidectomy Family History Mother Anxiety Asthma Depression Sister Anxiety Depression Father Cancer lung & stomach Depression Diabetes Hypertension MEN 1 (multiple endocrine neoplasia) Social History Smoking/Tobacco Use Status: Never Smoking risk assessment performed?: Yes Alcohol Intake: never Drug use: Current Sobriety Substance use type: former substance user Adopted: No Caregiver/Support person: No Foster care: No Household members: none Housing: apartment Number of Children: 0 Communication Needs: None Education Level: high school Do you need help understanding health information?: Never current occupation: [employer] Pets and animals: Yes (Ally) Pets and animals: dog(s) Sexually active: No Do you think of yourself as: straight/heterosexual Current gender identity: male What is your relationship status?: How often do you talk on the phone with friends or family?: twice per week How often do you get together with friends or relatives?: never Do you belong to any clubs or organized social groups?: no Panel score (0-1 are the most socially isolated patients): 0 What type of physical activity do you participate in: walking Duration: 15-30 minutes/day Frequency: 5-6 times per week Maryam/Caodaism: Worship Special maryam needs: No Seatbelt use: always Helmet use: Yes Helmet use: always Drive intox or ride w/intox truck 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
[2023-11-28 10:52] VITALS: BP 125/81; PULSE 116; RESP 18; TEMP 37.1; O2SAT 96
[2023-11-28 14:18] VITALS: RESP 18
== END 2023-11-28 10:52 | disposition home or self-care (01) ==
PROVIDERS: Emergency Provider Physician Assistant; PCP Family Medicine
DX: R10.9 Unspecified abdominal pain (principal)
CPT/HCPCS: 99281; 99282

== ENCOUNTER 2023-11-29 02:34 | Emergency (ER) | payer OTHER, SELFPAY ==
[2023-11-29] VITALS (21 sets, daily range): BP systolic 111–141; BP diastolic 71–104; PULSE 68–99; RESP 11–22; TEMP 36.7; O2SAT 92–99
--- NOTE | 2023-11-29 02:30 | RT.EKG_ITS ---
APPROVED REPORT Exam: Resting ECG Reason for Exam: chest pain Patient Location: E HR:98 bpm ECG Measurements Heart Rate 98 AXIS ME 166 P 33 QRSd 95 QRS 26 QT 378 T 32 QTc 483 Conclusion Sinus rhythm...normal P axis, V-rate 60- [address] segment or T wave abnormalities to suggest occlusive AR
--- NOTE | 2023-11-29 02:45 | DI.RAD_ITS ---
Exam(s) XR CHEST 2V PA LATERAL EXAM: XR CHEST 2V PA LATERAL CLINICAL HISTORY: chest pain, SOB TECHNIQUE: 2D digital imaging was performed of the chest. Two images were obtained. PA and lateral views were obtained. COMPARISON: CR,XR XR CHEST 2V PA LATERAL from 11/07/2023 FINDINGS: MEDIASTINUM: Normal. HEART: Normal. PULMONARY VASCULATURE: Normal. LUNGS: Clear. PLEURAL SPACE: No pleural effusion or pneumothorax. BONE:Within normal limits for the patient's age. OTHER FINDINGS:Normal. IMPRESSION: No acute pulmonary findings. DATA REPOSITORY: RADIATION DOSE DELIVERED:
[2023-11-29 03:00] LABS: Lactate 1.1 mmol/L (0.6-1.4)
[2023-11-29] MEDS: Ketorolac 15 MG/ML VIAL IVP (03:04)
[2023-11-29] MEDS: ACETAMINOPHEN 1,000 MG/100 ML BTL 400 MG IVPB (03:04)
[2023-11-29 03:11] LABS: Abs Immature Grans 0.04 10^3/uL (0.0-0.06); Absolute Basophil Count 0.07 10^3/uL (0.0-0.2); Absolute Eosinophil Count 0.17 10^3/uL (0.0-0.7); Absolute Lymphocyte Count 2.42 10^3/uL (1.2-3.4); Absolute Monocyte Count 0.86 10^3/uL (0.1-0.8); Absolute Neutrophil Count 4.44 10^3/uL (1.2-6.7); Basophils % 0.9 %; Eosinophils % 2.1 %; HCT 37.4 % (40.0-50.0); HGB 12.4 g/dL (13.5-17.5); Immature Grans % 0.5 %; Lymphocytes % 30.3 %; MCH 28.8 pg (27.0-33.0); MCHC 33.2 % (32.0-36.0); MCV 87 fL (80-95); MPV 10.3 fL (8.0-11.0); Monocytes % 10.8 %; Neutrophils % 55.4 %; Platelet Count 317 10^3/uL (130-400); RBC 4.31 10^6/uL (4.36-5.78); RDW 12.7 % (11.8-14.1); RDW-SD 40.6 fL
--- NOTE | 2023-11-29 03:19 | W.ED.GENAD ---
Discharge Plan Disposition Patient Disposition: Home Condition: Good Discharge Details Clinical Impression: Transaminitis, Chest pain Primary Care Provider: Brendon Vivar ED Provider: Kimberli Martinez Home Meds and New Rx's Prescriptions: Continued gabapentin 300 mg capsule 300 mg PO BID Qty: 180 3RF cyclobenzaprine 10 mg tablet 10 mg PO TID PRN (Reason: muscle spasm) Qty: 30 3RF methadone 10 mg/5 mL solution 105 mg PO QAM calcitriol 0.5 mcg capsule 0.5 mcg PO BID Qty: 360 3RF Hold Instructions: Resume on 06/15/22. diclofenac sodium 1 % gel 4 g topical QID Qty: 100 6RF Rx Instructions: apply to single knee, ankle, foot; for foot includes sole/toes/top of foot polyethylene glycol 3350 17 gram/dose powder 17 g PO DAILY omeprazole 40 mg capsule,delayed release(DR/EC) 40 mg PO DAILY Qty: 90 3RF clonazepam 1 mg tablet 1 mg PO BID Qty: 56 1RF famotidine 20 mg tablet 20 mg PO BID calcium carbonate [Tums] 200 mg calcium (500 mg) tablet,chewable 2,000 mg PO BID Hold Instructions: Resume on 05/12/23. Please hold your nightly dose tonight and your a.m. dose tomorrow morning. prochlorperazine maleate 5 mg tablet 5 mg PO TID PRN (Reason: acute nausea) Qty: 30 0RF ondansetron 4 mg tablet,disintegrating 4 mg PO Q8H PRN (Reason: nausea and vomiting) Qty: 20 0RF simethicone 125 mg tablet,chewable 125 mg PO QID PRN (Reason: abdominal distention) Qty: 20 0RF magnesium gluconate 27 mg magnesium (500 mg) tablet 13.5 mg PO TID Qty: 60 3RF tramadol 50 mg tablet 50 mg PO Q8H PRNQty: 12 0RF Rx Instructions: Take 1 tablet by mouth up to every 8 hours if needed for severe pain. Discharge Instructions Instructions: Chest Pain, Adult ED Additional Instructions: Continue taking all your medications. Call your surgeon on Friday to schedule an appointment to followup on your visit today and to have your liver enzymes re-checked. Return to the emergency department for new or worsening symptoms including abdominal pain, new/different/worse chest pain, if your difficulty breathing returns, if your skin or eyes look yellow, or if you have any other concerns. Referrals: [facility] [Provider Group] HPI General Mode of arrival: ambulatory. Date/Time Provider Initiated Documentation: 11/29/23 02:41. Limitations to Documentation: no limitations. Information obtained by: patient. HPI Narrative: 28yo M with hx HTN, hyperparathyroidism, CKD, reports he had a laprascopic cholecystectomy on 11/26/23 for gallstones, presenting for right sided chest pain and shortness of breath. Symptoms started around 2029, feels like he can't get a full breath and does have pain in his right chest when he tries to breathe deeply which radiates to his scapula. Minimal abdominal pain which has been improving since the surgery. Otherwise in his usual state of health with no fevers, chills, rash, nasuea, vomiting, LE edema, or other concerns. Related Data Home Medications Medication Instructions Recorded Confirmed calcium carbonate (Tums) 2,000 mg PO BID 02/02/23 11/29/23 calcitriol 0.5 mcg capsule 0.5 mcg PO BID #360 caps 04/21/23 11/29/23 diclofenac sodium 1 % topical gel 4 g topical QID #100 grams 04/21/23 11/29/23 methadone 10 mg/5 mL oral solution 105 mg PO QAM 06/12/23 11/29/23 polyethylene glycol 3350 17 17 g PO DAILY 06/12/23 11/29/23 gram/dose oral powder gabapentin 300 mg capsule 300 mg PO BID #180 caps 06/23/23 11/29/23 omeprazole 40 mg capsule,delayed 40 mg PO DAILY #90 caps 07/21/23 11/29/23 release cyclobenzaprine 10 mg tablet 10 mg PO TID PRN muscle spasm #30 08/18/23 11/29/23 tabs prochlorperazine maleate 5 mg 5 mg PO TID PRN acute nausea #30 09/06/23 11/29/23 tablet tabs ondansetron 4 mg disintegrating 4 mg PO Q8H PRN nausea and 10/30/23 11/29/23 tablet vomiting #20 tabs simethicone 125 mg chewable tablet 125 mg PO QID PRN abdominal 10/30/23 11/29/23 distention #20 tabs clonazepam 1 mg tablet 1 mg PO BID #56 tabs 11/07/23 11/29/23 magnesium gluconate 27 mg 13.5 mg (1/2 x 27 mg magnesium 11/21/23 11/29/23 magnesium (500 mg) tablet (500 mg)) PO TID #60 tabs famotidine 20 mg tablet 20 mg PO BID 11/24/23 11/29/23 tramadol 50 mg tablet 50 mg PO Q8H PRN #12 tabs 11/26/23 11/29/23 Previous Rx's Medication Instructions Recorded calcitriol 0.5 mcg capsule 0.5 mcg PO BID #360 caps 04/21/23 diclofenac sodium 1 % topical gel 4 g topical QID #100 grams 04/21/23 gabapentin 300 mg capsule 300 mg PO BID #180 caps 06/23/23 omeprazole 40 mg capsule,delayed 40 mg PO DAILY #90 caps 07/21/23 release cyclobenzaprine 10 mg tablet 10 mg PO TID PRN muscle spasm #30 08/18/23 tabs prochlorperazine maleate 5 mg 5 mg PO TID PRN acute nausea #30 09/06/23 tablet tabs ondansetron 4 mg disintegrating 4 mg PO Q8H PRN nausea and 10/30/23 tablet vomiting #20 tabs simethicone 125 mg chewable tablet 125 mg PO QID PRN abdominal 10/30/23 distention #20 tabs clonazepam 1 mg tablet 1 mg PO BID #56 tabs 11/07/23 magnesium gluconate 27 mg 13.5 mg (1/2 x 27 mg magnesium 11/21/23 magnesium (500 mg) tablet (500 mg)) PO TID #60 tabs tramadol 50 mg tablet 50 mg PO Q8H PRN #12 tabs 11/26/23 Allergies Allergy/AdvReac Type Severity Reaction Status Date / Time codeine Allergy Intermediate pass out Verified 11/29/23 02:43 Penicillins Allergy Skin Rash Verified 11/29/23 02:43 amoxicillin AdvReac Intermediate Nausea Verified 11/29/23 02:43 dextromethorphan AdvReac Intermediate Other (See Verified 11/29/23 02:43 [From NyQuil] Comment) doxylamine [From NyQuil] AdvReac Intermediate Other (See Verified 11/29/23 02:43 Comment) pseudoephedrine [From NyQuil] AdvReac Intermediate Other (See Verified 11/29/23 02:43 Comment) General Stated Complaint: GenMedical ADRIANA: 3 Review of Systems Narrative: see HPI Exam Narrative Exam Narrative: General: Alert, well appearing, well nourished, in no acute distress. Head: Normocephalic, atraumatic Neck: Trachea midline, ?Neck supple. Cardiac: ?RRR, no murmurs appreciated Resp: No respiratory distress. CTAB. Abd: ?Soft, non-distended, nontender. Healing laprascopic incisions, no signs of infection. : ?No suprapubic tenderness. Extremities: ?No deformities.? No peripheral edema. Neurologic: GCS 15. ? Moves all extremities freely against gravity Course Vital Signs Vital signs: Vital Signs Temperature 36.7 C 11/29/23 02:38 Pulse 86 11/29/23 02:38 Respiratory Rate 16 11/29/23 02:38 Blood Pressure 141/104 H 11/29/23 02:38 Pulse Oximetry 99 11/29/23 02:38 Temperature 36.7 C 11/29/23 02:38 Pulse 86 11/29/23 02:38 Respiratory Rate 16 11/29/23 02:43 Respiratory Effort Short of Breath 11/29/23 02:43 Respiratory Depth Normal 11/29/23 02:43 Respiratory Pattern Normal 11/29/23 02:43 Blood Pressure 141/104 H 11/29/23 02:38 Pulse Oximetry 99 11/29/23 02:38 Oxygen Delivery Method Room Air 11/29/23 02:38 Oxygen Flow Rate 0 11/29/23 02:38 Pain Level 4 11/29/23 02:38 Lab/Test Results Lab/Test Results: Laboratory Tests Range/Units 11/29/23 02:53 WBC (4.4-10.8) 10^3/uL 8.00 RBC (4.36-5.78) 10^6/uL 4.31 L Hgb (13.5-17.5) g/dL 12.4 L Hct (40.0-50.0) % 37.4 L MCV (80-95) fL 87 MCH (27.0-33.0) pg 28.8 MCHC (32.0-36.0) % 33.2 RDW (11.8-14.1) % 12.7 Plt Count (130-400) 10^3/uL 317 MPV (8.0-11.0) fL 10.3 Immature Gran % % 0.5 Neutrophils % % 55.4 Lymphocytes % % 30.3 Monocytes % % 10.8 Eosinophils % % 2.1 Basophils % % 0.9 Nucleated RBC % (0.0-0.3) % 0.0 Absolute Neutrophils (1.2-6.7) 10^3/uL 4.44 Absolute Lymphocytes (1.2-3.4) 10^3/uL 2.42 Absolute Monocytes (0.1-0.8) 10^3/uL 0.86 H Absolute Eosinophils (0.0-0.7) 10^3/uL 0.17 Absolute Basophils (0.0-0.2) 10^3/uL 0.07 VBG Lactate (0.6-1.4) mmol/L 1.1 Medical Decision Making 28yo M with hx HTN, hyperparathyroidism, CKD, reports he had a laprascopic cholecystectomy on 11/26/23 for gallstones, presenting for right sided chest pain and shortness of breath since around 2029. Hypertensive on arrival, vital signs otherwise reasuring. Benign physical exam, clear lungs, surgical sites appear to be healing well. Will give tylenol and toradol for pain. EKG NSR, appropriate intervals, no ST segment or T wave abnormalities to suggest occlusive MT. CXR independently reviewed, no focal pneumonia or pneumothorax on my view, agree with radiology read below. Labs reviewed as below, CBC with mild anemia at his baseline on [facility] recrod review, CMP with mild hypocalcemia and hypomagnesium (oral replacement ordered) as wall as elevated AST/ALT/ALP with normal bilirubin (? 2/t surgery), lactate normal, troponin negative in the setting of 4+ hours of pain (would not further pursue ACS). Dimer elevated; CT for PE ordered and independently reviewed, no large saddle embolus on my view, agree with radiology read below. On reassessment he reports symptoms have improved, breathing comfortably, no further pain. Abdomen remains benign, no RUQ tenderness. Discussed LFTs with surgery Dr. Clement; no acute interventions indicated, advised outpatient followup for repeat bloodwork. Discussed with patient. Discharged home; discharge instructions and return precautions were reviewed with patient who verbalized understanding; all questions were answered and he is in full agreement with the plan. Imaging Data Radiologic Study: Imaging: X-Ray Radiologist's impression: IMPRESSION: No acute findings. Radiologic Study #2: Imaging: CT Scan Radiologist's impression: IMPRESSION: No acute findings. Lab Data Lab results reviewed: Yes I reviewed the patient's lab results. Labs: Laboratory Tests Range/Units 11/29/23 02:53 WBC (4.4-10.8) 10^3/uL 8.00 RBC (4.36-5.78) 10^6/uL 4.31 L Hgb (13.5-17.5) g/dL 12.4 L Hct (40.0-50.0) % 37.4 L MCV (80-95) fL 87 MCH (27.0-33.0) pg 28.8 MCHC (32.0-36.0) % 33.2 RDW (11.8-14.1) % 12.7 Plt Count (130-400) 10^3/uL 317 MPV (8.0-11.0) fL 10.3 Immature Gran % % 0.5 Neutrophils % % 55.4 Lymphocytes % % 30.3 Monocytes % % 10.8 Eosinophils % % 2.1 Basophils % % 0.9 Nucleated RBC % (0.0-0.3) % 0.0 Absolute Neutrophils (1.2-6.7) 10^3/uL 4.44 Absolute Lymphocytes (1.2-3.4) 10^3/uL 2.42 Absolute Monocytes (0.1-0.8) 10^3/uL 0.86 H Absolute Eosinophils (0.0-0.7) 10^3/uL 0.17 Absolute Basophils (0.0-0.2) 10^3/uL 0.07 D-Dimer (<500) ng/mlFEU 657 H VBG Lactate (0.6-1.4) mmol/L 1.1 Sodium (136-145) mmol/L 138 Potassium (3.5-5.1) mmol/L 3.8 Chloride (98-107) mmol/L 98 Carbon Dioxide (21.0-32.0) mmol/L 32.0 Anion Gap (3-11) mmol/L 8.0 BUN (7-18) mg/dL 21 H Creatinine (0.70-1.30) mg/dL 1.3 Est GFR (CKD-EPI 2020) (mL/min/1.73m2) 75.79 Glucose (74-106) mg/dL 109 H Calcium (8.5-10.1) mg/dL 8.2 L Magnesium (1.8-2.4) mg/dL 1.7 L Total Bilirubin (0.2-1.0) mg/dL 0.4 AST (15-37) U/L 166 H ALT (16-63) U/L 192 H Alkaline Phosphatase (46-116) U/L 149 H Troponin I (< or =60) ng/L < 50 NT-Pro-B Natriuret Pep (<300) pg/mL 104 Total Protein (6.4-8.2) g/dL 8.1 Albumin (3.4-5.0) g/dL 3.4 Lipase (16-77) U/L 24 Quality:SDOH Health Related Social Needs: Health related social needs transpo insecurity PFSH All Active Problems (Updated 11/29/23 @ 05:58 by Kimberli Martinez MD) Chest pain (Acute) Transaminitis (Acute) Encounter for postoperative wound check (Acute) Hypomagnesemia (Acute) Anxiety (Chronic) Anxiety (Chronic) Hypomagnesemia (Acute) Elevated TSH (Acute) Congestion of upper respiratory tract (Acute) Chest pain (Acute) Strain of right groin (Acute) Chronic abdominal pain (Acute) Nausea & vomiting (Acute) Abdominal pain (Acute) Nausea (Acute) Abdominal bloating (Acute) Bronchitis (Acute) 10/08/2023 - Dx @ [facility] E/R Chani MORALES Bronchitis (Acute) Testicle lump (Acute) Hamstring tendinitis of left thigh (Acute) Pes anserine bursitis (Acute) Hypernatremia (Acute) Cervical radiculopathy (Acute) URI (upper respiratory infection) (Acute) Left-sided Flower's palsy (Acute) Neck pain on left side (Acute) Constipation (Acute) Grief reaction (Chronic) Opiate dependence, continuous (Acute) Cellulitis (Acute) Cholelithiases (Acute) 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 Possible 2' Methadone, Clnzpm (?). Surg eval (+)/No further action. History of electrolyte imbalance (Acute) Neck pain on left side (Acute) with shoulder, upper back pain.. torticollis, radiating into left hip/leg Pulmonary nodule 1 cm or greater in diameter (Chronic) Therapeutic opioid induced constipation (Acute) Sphincter of Oddi dysfunction (Chronic) Abnormal CT scan, kidney (Acute) Intrahepatic bile duct dilation (Acute) Common bile duct dilatation (Chronic) Has been dilated for quite some time, now more-so. Normal LFTs. Known gallstones. Abdominal pain (Acute) Iatrogenic hypocalcemia (Acute) Multiple endocrine neoplasia type I (Chronic) Chronic constipation (Chronic) Depression (Chronic) Hypomagnesemia (Chronic) Hypocalcemia (Chronic) Depression (Chronic) Suicidal ideation (Acute) Elevated parathyroid hormone (Acute) Family history of coronary arteriosclerosis (Chronic) Father of MT at 50, mother had MT at 42 Severe anxiety with panic (Chronic) Cellulitis (Acute) Medical History (Updated 11/29/23 @ 05:58 by Kimberli Martinez MD) CKD (chronic kidney disease) stage 2, GFR 60-89 ml/min GFR 64-65, with Hx FLORESITA and GFR < 45 Primary hyperparathyroidism Complex medical condition Serious electrolyte imbalances, with gynecomastia, possible MEN Dx, CKD and anemia with baseline anxiety and Hx PTSD. Hypocalcemia Anxiety Depression Hyperlipidemia Family history of multiple endocrine neoplasia, type 1 PTSD (post-traumatic stress disorder) Per pt. states no triggers at this time. Surgical History (Updated 11/26/23 @ 14:49 by Adrianna Lisa) History of laparoscopic cholecystectomy (~11/2023) H/O parathyroidectomy Family History Mother Anxiety Asthma Depression Sister Anxiety Depression Father Cancer lung & stomach Depression Diabetes Hypertension MEN 1 (multiple endocrine neoplasia) Social History Smoking/Tobacco Use Status: Never Smoking risk assessment performed?: Yes Alcohol Intake: never Drug use: Current Sobriety Substance use type: former substance user Adopted: No Caregiver/Support person: No Foster care: No Household members: none Housing: apartment Number of Children: 0 Communication Needs: None Education Level: high school Do you need help understanding health information?: Never current occupation: [employer] Pets and animals: Yes (Ally) Pets and animals: dog(s) Sexually active: No Do you think of yourself as: straight/heterosexual Current gender identity: male What is your relationship status?: How often do you talk on the phone with friends or family?: twice per week How often do you get together with friends or relatives?: never Do you belong to any clubs or organized social groups?: no Panel score (0-1 are the most socially isolated patients): 0 What type of physical activity do you participate in: walking Duration: 15-30 minutes/day Frequency: 5-6 times per week Maryam/Mormonism: Yazidism Special maryam needs: No Seatbelt use: always Helmet use: Yes Helmet use: always Drive intox or ride w/intox shuttle 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
[2023-11-29 03:26] LABS: ALT 192 U/L (16-63); AST 166 U/L (15-37); Albumin 3.4 g/dL (3.4-5.0); Alkaline Phosphatase 149 U/L (46-116); BUN 21 mg/dL (7-18); Bilirubin, Total 0.4 mg/dL (0.2-1.0); CREATININE 1.3 mg/dL (0.70-1.30); Calcium 8.2 mg/dL (8.5-10.1); Chloride 98 mmol/L (98-107); Estimated GFR 75.79 (mL/min/1.73m2); Glucose 109 mg/dL (74-106); Lipase 24 U/L (16-77); Magnesium 1.7 mg/dL (1.8-2.4); NT-proBNP 104 pg/mL (<300); Potassium 3.8 mmol/L (3.5-5.1); Sodium 138 mmol/L (136-145); Total Protein 8.1 g/dL (6.4-8.2); Troponin I < 50 ng/L (< or =60)
--- NOTE | 2023-11-29 03:30 | DI.CT_ITS ---
Exam(s) CT CHEST PE CTA EXAM: CT CHEST PE CTA CLINICAL HISTORY: pleuritic pain, elevated dimer. TECHNIQUE: Imaging Protocol: Axial CT angiography was performed with multi-slice acquisition and mu lti-planar and/or 3D reconstructions. CONTRAST MATERIAL: Intravenous: Omnipaque 350 contrast volume:100 mL COMPARISON: CT CT CHEST WO from 10/03/[address] ABDOMEN PELVIS W from 11/06/2023 FINDINGS: Tracheobronchial tree: Patent where visualized. Pulmonary parenchyma: No consolidation or dominant measurable mass. Atelectatic changes are seen in t he lung bases. No focal consolidations are present. Pulmonary Arteries: No evidence of filling defect to suggest pulmonary emboli. Mediastinum and Jessika: No dominant adenopathy or fluid collection. The esophagus is unremarkable. Visualized thyroid gland: Unremarkable. Pleura: No effusion or pneumothorax. Heart: The heart is not dilated. No coronary artery calcifications are seen. No pericardial effusion. Aorta: Thoracic aorta non-dilated. No evidence of dissection. Upper abdomen: Unremarkable. Soft tissues: There is bilateral gynecomastia. Bones: Within normal limits for the patient's age. IMPRESSION: No evidence of pulmonary embolism, thoracic aortic dissection or aneurysm. RADIATION DOSE DELIVERED: Total DLP DATA REPOSITORY: All CT scans at this facility are submitted to the National Radiology Data Registry (NRDR) Dose Index Registry (DIR) with the [employer] (ACR). RADIATION OPTIMIZATION: All CT scans at this facility use at least one of these dose optimization te chniques: automated exposure control; mA and/or kV adjustment per patient size (includes targeted exa ms where dose is matched to clinical indication); or iterative reconstruction.
[2023-11-29 03:34] LABS: D-Dimer 657 ng/mlFEU (<500)
[2023-11-29] MEDS: Omnipaque 350 MG/ML 100 ML BTL IJ (04:09)
[2023-11-29] MEDS: Normal Saline - Diluent 50 ML VIAL IJ (04:09)
--- NOTE | 2023-11-29 04:23 | DI.VRAD_ITS ---
PROCEDURE INFORMATION: Exam: XR Chest Exam date and time: 11/29/2023 3:14 AM Age: 28 years old Clinical indication: Shortness of breath; Chest wall pain; Additional info: Chest pain, SOB TECHNIQUE: Imaging protocol: Radiologic exam of the chest. Views: 2 views. COMPARISON: CR XR CHEST 2V PA LATERAL 07/11/2023 23:48 FINDINGS: Lungs: Unremarkable. No consolidation. Pleural spaces: Unremarkable. No pleural effusion. No pneumothorax. Heart/Mediastinum: Unremarkable. No cardiomegaly. Bones/joints: Unremarkable. IMPRESSION: No acute findings. Dictated and Authenticated by: Armando Aparicio MD. Ordering:SHELBY Ag MD
[2023-11-29] MEDS: Calcium Carbonate 1.5 GM TAB PO (04:30)
[2023-11-29] MEDS: Magnesium Gluconate 500 MG TAB PO (04:30)
--- NOTE | 2023-11-29 04:31 | DI.VRAD_ITS ---
PROCEDURE INFORMATION: Exam: CTA Chest With Contrast Exam date and time: 11/29/2023 4:07 AM Age: 28 years old Clinical indication: Other: Pleuritic pain, elevated dimer TECHNIQUE: Imaging protocol: Computed tomographic angiography of the chest with contrast. Exam focused on the arteries. 3D rendering (Not supervised by radiologist): MIP and/or 3D reconstructed images were created by the technologist. Contrast material: OMNI 350; Contrast volume: 100 ml; Contrast route: INTRAVENOUS (IV); COMPARISON: CT CHEST PE ABD PELVIS W 11/08/2022 02:10 FINDINGS: Pulmonary arteries: No evidence of pulmonary embolism. Aorta: Normal thoracic aorta without aneurysm or dissection. Lungs: Dependent atelectatic changes. Pleural spaces: No pleural effusion or pneumothorax. Heart: Unremarkable. No cardiomegaly. No pericardial effusion. Lymph nodes: Unremarkable. No enlarged lymph nodes. Upper abdomen: Cholecystectomy. Large amount of stool in the colon. Bones/joints: No acute fracture. Soft tissues: Bilateral gynecomastia. IMPRESSION: No acute findings. Dictated and Authenticated by: Armando Aparicio MD. Ordering:SHELBY Ag MD
== END 2023-11-29 06:30 | disposition home or self-care (01) ==
PROVIDERS: Emergency Provider Student in an Organized Health Care Education/Training Program; PCP Family Medicine
DX: R07.9 Chest pain, unspecified (principal); R74.01 Elevation of levels of liver transaminase levels; Z98.890 Other specified postprocedural states
CPT/HCPCS: 36415; 71275; 80053; 83690; 93005; 96365; 96375; 99285; 71046; 83605; 83735; 83880; 84484; 85025; 85379; 93010; 99283; J0131; J1885; J3490

== ENCOUNTER 2023-12-01 15:04 | Emergency (ER) | payer OTHER, SELFPAY ==
[2023-12-01 15:13] VITALS: BP 144/71; PULSE 112; RESP 20; O2SAT 96
--- NOTE | 2023-12-01 15:15 | DI.US_ITS ---
Exam(s) US LOWER EXTREMITY VENOUS RT EXAM: US LOWER EXTREMITY VENOUS RT CLINICAL HISTORY: eval for DVT. TECHNIQUE: Lower extremity venous ultrasound performed using grayscale, color-flow, and spectral Do ppler analysis. COMPARISON: No exams were available for comparison FINDINGS: The common femoral, femoral and popliteal veins demonstrate normal compressibility, augmentation, and color Doppler. The posterior tibial veins are patent. No saphenous vein thrombosis or other superfi cial venous thrombosis is seen. No hematoma or Almanza's cyst is seen. IMPRESSION: Negative lower extremity ultrasound. No evidence of DVT. DATA REPOSITORY:
--- NOTE | 2023-12-01 16:21 | ED.GENADUL_ITS ---
Discharge Plan Disposition Patient Disposition: Home Discharge Details Clinical Impression: Leg pain Primary Care Provider: Brendon Vivar ED Provider: Jeovany Elias Home Meds and New Rx's Prescriptions: No Action gabapentin 300 mg capsule 300 mg PO BID Qty: 180 3RF cyclobenzaprine 10 mg tablet 10 mg PO TID PRN (Reason: muscle spasm) Qty: 30 3RF methadone 10 mg/5 mL solution 105 mg PO QAM calcitriol 0.5 mcg capsule 0.5 mcg PO BID Qty: 360 3RF Hold Instructions: Resume on 06/15/22. diclofenac sodium 1 % gel 4 g topical QID Qty: 100 6RF Rx Instructions: apply to single knee, ankle, foot; for foot includes sole/toes/top of foot polyethylene glycol 3350 17 gram/dose powder 17 g PO DAILY omeprazole 40 mg capsule,delayed release(DR/EC) 40 mg PO DAILY Qty: 90 3RF clonazepam 1 mg tablet 1 mg PO BID Qty: 56 1RF famotidine 20 mg tablet 20 mg PO BID calcium carbonate [Tums] 200 mg calcium (500 mg) tablet,chewable 2,000 mg PO BID Hold Instructions: Resume on 05/12/23. Please hold your nightly dose tonight and your a.m. dose tomorrow morning. prochlorperazine maleate 5 mg tablet 5 mg PO TID PRN (Reason: acute nausea) Qty: 30 0RF ondansetron 4 mg tablet,disintegrating 4 mg PO Q8H PRN (Reason: nausea and vomiting) Qty: 20 0RF simethicone 125 mg tablet,chewable 125 mg PO QID PRN (Reason: abdominal distention) Qty: 20 0RF magnesium gluconate 27 mg magnesium (500 mg) tablet 13.5 mg PO TID Qty: 60 3RF tramadol 50 mg tablet 50 mg PO Q8H PRNQty: 12 0RF Rx Instructions: Take 1 tablet by mouth up to every 8 hours if needed for severe pain. Discharge Instructions Additional Instructions: do gentle stretching take pain medications as needed HPI General Date/Time Provider Initiated Documentation: 12/01/23 15:08 . Limitations to Documentation: no limitations . Information obtained by: patient . HPI Narrative: 28-year-old gentleman with past medical history including chronic pain, recent Judi cystectomy, parathyroidectomy presents for evaluation of right lower extremity pain. He reports that he has been having pain in his right leg. The pain was initially in the back of his thigh and then he reports that he had pain behind his kneecap and into his calf. Denies any trauma. Denies any leg swelling or color change. He does report a history of a blood clot in his upper extremity. He did recently have surgery to remove his gallbladder. Related Data Home Medications Medication Instructions Recorded Confirmed calcium carbonate (Tums) 2,000 mg PO BID 02/02/23 12/01/23 calcitriol 0.5 mcg capsule 0.5 mcg PO BID #360 caps 04/21/23 12/01/23 diclofenac sodium 1 % topical gel 4 g topical QID #100 grams 04/21/23 12/01/23 methadone 10 mg/5 mL oral solution 105 mg PO QAM 06/12/23 12/01/23 polyethylene glycol 3350 17 17 g PO DAILY 06/12/23 12/01/23 gram/dose oral powder gabapentin 300 mg capsule 300 mg PO BID #180 caps 06/23/23 12/01/23 omeprazole 40 mg capsule,delayed 40 mg PO DAILY #90 caps 07/21/23 12/01/23 release cyclobenzaprine 10 mg tablet 10 mg PO TID PRN muscle spasm #30 08/18/23 12/01/23 tabs prochlorperazine maleate 5 mg 5 mg PO TID PRN acute nausea #30 09/06/23 12/01/23 tablet tabs ondansetron 4 mg disintegrating 4 mg PO Q8H PRN nausea and 10/30/23 12/01/23 tablet vomiting #20 tabs simethicone 125 mg chewable tablet 125 mg PO QID PRN abdominal 10/30/23 12/01/23 distention #20 tabs clonazepam 1 mg tablet 1 mg PO BID #56 tabs 11/07/23 12/01/23 magnesium gluconate 27 mg 13.5 mg (1/2 x 27 mg magnesium 11/21/23 12/01/23 magnesium (500 mg) tablet (500 mg)) PO TID #60 tabs famotidine 20 mg tablet 20 mg PO BID 11/24/23 12/01/23 tramadol 50 mg tablet 50 mg PO Q8H PRN #12 tabs 11/26/23 12/01/23 Previous Rx's Medication Instructions Recorded calcitriol 0.5 mcg capsule 0.5 mcg PO BID #360 caps 04/21/23 diclofenac sodium 1 % topical gel 4 g topical QID #100 grams 04/21/23 gabapentin 300 mg capsule 300 mg PO BID #180 caps 06/23/23 omeprazole 40 mg capsule,delayed 40 mg PO DAILY #90 caps 07/21/23 release cyclobenzaprine 10 mg tablet 10 mg PO TID PRN muscle spasm #30 08/18/23 tabs prochlorperazine maleate 5 mg 5 mg PO TID PRN acute nausea #30 09/06/23 tablet tabs ondansetron 4 mg disintegrating 4 mg PO Q8H PRN nausea and 10/30/23 tablet vomiting #20 tabs simethicone 125 mg chewable tablet 125 mg PO QID PRN abdominal 10/30/23 distention #20 tabs clonazepam 1 mg tablet 1 mg PO BID #56 tabs 11/07/23 magnesium gluconate 27 mg 13.5 mg (1/2 x 27 mg magnesium 11/21/23 magnesium (500 mg) tablet (500 mg)) PO TID #60 tabs tramadol 50 mg tablet 50 mg PO Q8H PRN #12 tabs 11/26/23 Allergies Allergy/AdvReac Type Severity Reaction Status Date / Time codeine Allergy Intermediate pass out Verified 12/01/23 15:15 Penicillins Allergy Skin Rash Verified 12/01/23 15:15 amoxicillin AdvReac Intermediate Nausea Verified 12/01/23 15:15 dextromethorphan AdvReac Intermediate Other (See Verified 12/01/23 15:15 [From NyQuil] Comment) doxylamine [From NyQuil] AdvReac Intermediate Other (See Verified 12/01/23 15:15 Comment) pseudoephedrine [From NyQuil] AdvReac Intermediate Other (See Verified 12/01/23 15:15 Comment) General Stated Complaint: Orthopedic ADRIANA: 3 Exam Narrative Exam Narrative: Review of Systems: All systems reviewed & are unremarkable except as noted in HPI and below Well-developed, no acute distress NCAT PERRL, normal conjunctiva Mild tachycardia, consistent with baseline Unlabored respiratory effort Nondistended abdomen, soft nontender, surgical incisions healing well, scattered postoperative bruising Extremities w/o deformity, no cyanosis, no edema Bilateral lower extremities symmetric without unilateral swelling No rashes or lesions. no focal neurologic deficits Appropriate mood and affect Course Vital Signs Vital signs: Vital Signs Pulse 112 H 12/01/23 15:13 Respiratory Rate 20 12/01/23 15:13 Blood Pressure 144/71 H 12/01/23 15:13 Pulse Oximetry 96 12/01/23 15:13 Pulse 112 H 12/01/23 15:13 Respiratory Rate 20 12/01/23 15:13 Respiratory Effort Normal, Non-Labored 12/01/23 15:23 Respiratory Depth Normal 12/01/23 15:23 Respiratory Pattern Normal 12/01/23 15:23 Blood Pressure 144/71 H 12/01/23 15:13 Blood Pressure Position Sitting 12/01/23 15:13 Pulse Oximetry 96 12/01/23 15:13 Oxygen Delivery Method Room Air 12/01/23 15:13 Oxygen Flow Rate 0 12/01/23 15:13 Medical Decision Making Emergent evaluation of right lower extremity pain. Initial differential includes musculoskeletal strain, muscle spasm, DVT. Patient does have risk factors including recent surgery. Prior DVT was provoked from IV site. On examination, he does not has unilateral leg swelling or significant tenderness on examination. He has no history of trauma precipitating this pain. He is not ed to be tachycardic, but this is consistent with multiple visits to the emergency department, and I do not suspect that the patient has a pulmonary embolism causing his tachycardia. Given his recent surgery, I did evaluate for possible DVT with an ultrasound. This testing was negative. Advise gentle stretching, pain medication as needed and to follow-up if symptoms do not improve. Medical Records Medical records reviewed: Yes I reviewed the patient's medical records. Lab Data Lab results reviewed: Yes I reviewed the patient's lab results. Quality:SDOH Health Related Social Needs: Health related social needs transpo insecurity PFSH All Active Problems Leg pain (Acute) Chest pain (Acute) Transaminitis (Acute) Encounter for postoperative wound check (Acute) Hypomagnesemia (Acute) Anxiety (Chronic) Anxiety (Chronic) Hypomagnesemia (Acute) Elevated TSH (Acute) Congestion of upper respiratory tract (Acute) Chest pain (Acute) Strain of right groin (Acute) Chronic abdominal pain (Acute) Nausea & vomiting (Acute) Abdominal pain (Acute) Bronchitis (Acute) 10/08/2023 - Dx @ [facility] E/R Chani MORALES Bronchitis (Acute) Testicle lump (Acute) Hamstring tendinitis of left thigh (Acute) Pes anserine bursitis (Acute) Hypernatremia (Acute) Cervical radiculopathy (Acute) URI (upper respiratory infection) (Acute) Left-sided Flower's palsy (Acute) Neck pain on left side (Acute) Constipation (Acute) Grief reaction (Chronic) Opiate dependence, continuous (Acute) Cellulitis (Acute) Cholelithiases (Acute) 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 Possible 2' Methadone, Clnzpm (?). Surg eval (+)/No further action. History of electrolyte imbalance (Acute) Neck pain on left side (Acute) with shoulder, upper back pain.. torticollis, radiating into left hip/leg Pulmonary nodule 1 cm or greater in diameter (Chronic) Therapeutic opioid induced constipation (Acute) Sphincter of Oddi dysfunction (Chronic) Abnormal CT scan, kidney (Acute) Intrahepatic bile duct dilation (Acute) Common bile duct dilatation (Chronic) Has been dilated for quite some time, now more-so. Normal LFTs. Known gallstones. Abdominal pain (Acute) Iatrogenic hypocalcemia (Acute) Multiple endocrine neoplasia type I (Chronic) Chronic constipation (Chronic) Depression (Chronic) Hypomagnesemia (Chronic) Hypocalcemia (Chronic) Depression (Chronic) Suicidal ideation (Acute) Elevated parathyroid hormone (Acute) Family history of coronary arteriosclerosis (Chronic) Father of UT at 50, mother had UT at 42 Severe anxiety with panic (Chronic) Cellulitis (Acute) Medical History CKD (chronic kidney disease) stage 2, GFR 60-89 ml/min GFR 64-65, with Hx FLORESITA and GFR < 45 Primary hyperparathyroidism Complex medical condition Serious electrolyte imbalances, with gynecomastia, possible MEN Dx, CKD and anemia with baseline anxiety and Hx PTSD. Hypocalcemia Anxiety Depression Hyperlipidemia Family history of multiple endocrine neoplasia, type 1 PTSD (post-traumatic stress disorder) Per pt. states no triggers at this time. Surgical History History of laparoscopic cholecystectomy (~11/2023) H/O parathyroidectomy Family History Mother Anxiety Asthma Depression Sister Anxiety Depression Father Cancer lung & stomach Depression Diabetes Hypertension MEN 1 (multiple endocrine neoplasia) Social History Smoking/Tobacco Use Status: Never Smoking risk assessment performed?: Yes Alcohol Intake: never Drug use: Current Sobriety Substance use type: former substance user Adopted: No Caregiver/Support person: No Foster care: No Household members: none Housing: apartment Number of Children: 0 Communication Needs: None Education Level: high school Do you need help understanding health information?: Never current occupation: [employer] Pets and animals: Yes (Ally) Pets and animals: dog(s) Sexually active: No Do you think of yourself as: straight/heterosexual Current gender identity: male What is your relationship status?: How often do you talk on the phone with friends or family?: twice per week How often do you get together with friends or relatives?: never Do you belong to any clubs or organized social groups?: no Panel score (0-1 are the most socially isolated patients): 0 What type of physical activity do you participate in: walking Duration: 15-30 minutes/day Frequency: 5-6 times per week Maryam/Taoism: Episcopalian Special maryam needs: No Seatbelt use: always Helmet use: Yes Helmet use: always Drive intox or ride w/intox telephone directory distributor 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
== END 2023-12-01 16:25 | disposition home or self-care (01) ==
PROVIDERS: Emergency Provider Emergency Medicine; PCP Family Medicine
DX: M79.604 Pain in right leg (principal); R00.1 Bradycardia, unspecified; E89.2 Postprocedural hypoparathyroidism
CPT/HCPCS: 99284; 93971; 99283

== ENCOUNTER 2023-12-02 09:01 | Emergency (ER) | payer OTHER, SELFPAY ==
--- NOTE | 2023-12-02 09:00 | RT.EKG_ITS ---
APPROVED REPORT Exam: Resting ECG Reason for Exam: chest pain Patient Location: E HR:111 bpm ECG Measurements Heart Rate 111 AXIS OR 180 P 45 QRSd 85 QRS 45 QT 334 T 40 QTc 453 Conclusion Sinus tachycardia...rate> 99
[2023-12-02 09:07] VITALS: BP 127/70; PULSE 104; RESP 20; TEMP 36.2; O2SAT 99
[2023-12-02 09:28] LABS: Abs Immature Grans 0.03 10^3/uL (0.0-0.06); Absolute Basophil Count 0.03 10^3/uL (0.0-0.2); Absolute Eosinophil Count 0.22 10^3/uL (0.0-0.7); Absolute Lymphocyte Count 2.01 10^3/uL (1.2-3.4); Absolute Monocyte Count 0.66 10^3/uL (0.1-0.8); Absolute Neutrophil Count 3.25 10^3/uL (1.2-6.7); Basophils % 0.5 %; Eosinophils % 3.5 %; HCT 35.3 % (40.0-50.0); HGB 11.5 g/dL (13.5-17.5); Immature Grans % 0.5 %; Lymphocytes % 32.4 %; MCH 28.5 pg (27.0-33.0); MCHC 32.6 % (32.0-36.0); MCV 88 fL (80-95); MPV 9.9 fL (8.0-11.0); Monocytes % 10.6 %; Neutrophils % 52.5 %; Platelet Count 302 10^3/uL (130-400); RBC 4.03 10^6/uL (4.36-5.78); RDW-SD 41.9 fL
[2023-12-02] MEDS: ACETAMINOPHEN 1,000 MG/100 ML BTL 400 MG IVPB (09:30)
[2023-12-02] MEDS: Lactated Ringers 1,000 ML 1000 ML IV (09:31)
[2023-12-02] MEDS: Ketorolac 15 MG/ML VIAL IVP (09:31)
[2023-12-02] MEDS: Ondansetron 4 MG/2 ML VIAL IVP (09:31)
[2023-12-02 09:38] VITALS: BP 127/70; PULSE 104; RESP 20; TEMP 36.2; O2SAT 99
--- NOTE | 2023-12-02 09:38 | ED.GENADUL_ITS ---
Discharge Plan Disposition Patient Disposition: Home Condition: Stable Discharge Details Clinical Impression: Abdominal pain Primary Care Provider: Brendon Vivar ED Provider: Richy Oakes Home Meds and New Rx's Prescriptions: Continued gabapentin 300 mg capsule 300 mg PO BID Qty: 180 3RF cyclobenzaprine 10 mg tablet 10 mg PO TID PRN (Reason: muscle spasm) Qty: 30 3RF methadone 10 mg/5 mL solution 105 mg PO QAM calcitriol 0.5 mcg capsule 0.5 mcg PO BID Qty: 360 3RF Hold Instructions: Resume on 06/15/22. diclofenac sodium 1 % gel 4 g topical QID Qty: 100 6RF Rx Instructions: apply to single knee, ankle, foot; for foot includes sole/toes/top of foot polyethylene glycol 3350 17 gram/dose powder 17 g PO DAILY omeprazole 40 mg capsule,delayed release(DR/EC) 40 mg PO DAILY Qty: 90 3RF clonazepam 1 mg tablet 1 mg PO BID Qty: 56 1RF famotidine 20 mg tablet 20 mg PO BID calcium carbonate [Tums] 200 mg calcium (500 mg) tablet,chewable 2,000 mg PO BID Hold Instructions: Resume on 05/12/23. Please hold your nightly dose tonight and your a.m. dose tomorrow morning. prochlorperazine maleate 5 mg tablet 5 mg PO TID PRN (Reason: acute nausea) Qty: 30 0RF ondansetron 4 mg tablet,disintegrating 4 mg PO Q8H PRN (Reason: nausea and vomiting) Qty: 20 0RF simethicone 125 mg tablet,chewable 125 mg PO QID PRN (Reason: abdominal distention) Qty: 20 0RF magnesium gluconate 27 mg magnesium (500 mg) tablet 13.5 mg PO TID Qty: 60 3RF tramadol 50 mg tablet 50 mg PO Q8H PRNQty: 12 0RF Rx Instructions: Take 1 tablet by mouth up to every 8 hours if needed for severe pain. Discharge Instructions Instructions: Abdominal pain Additional Instructions: You were seen in the emergency department for your brief episodic chest pain this morning, you recently postoperative from a cholecystectomy. You state you are unable to eat and drink things, you vomited morning meds. You exhibited no vomiting care, your CTA is negative for any acute pulmonary embolism, your cardiac workup is negative, you do have an elevation of some of your liver enzymes which can be an expected finding after cholecystectomy, your bilirubin which is a lab that shows obstruction of the biliary tree is normal. I discussed this with surgery, I recommend that you get an outpatient lab draw to recheck your liver function tests in the next 1 to 2 days. I will send a message to your primary care but if you have not heard from them to schedule this please call them tomorrow to make sure that they have scheduled this outpatient lab draw. Your markers of sepsis are negative, we provided you with some IV fluids. Please continue your at home pain and nausea regimen, you should begin to improve in the next few days as you are almost 1 week postoperative. Please return to the emergency department for intractable nausea and vomiting, increasing chest pain, fever, shortness of breath, black or bloody stools, or complete constipation. Referrals: [facility] [Provider Group] Brendon Vivar DO [Primary Care Provider] - Discharge Data Discharge Date/Time-TO BE ENTERED AT DEPARTURE: 12/02/23 13:43 HPI General Date/Time Provider Initiated Documentation: 12/02/23 09:08 . HPI Narrative: 28 year-old male presents to ED today by POV/ambulating with a chief complaint of chest pain with onset about 1 hour prior to arrival. Patient is 6 days post- op from cholecystectomy, having abdominal pain, leg pain yesterday- third ED visit since surgery. Quality described as sharp parasternal chest pains this morning, is having continued upper abdominal pain and states he has nausea and v omiting, has ondansetron at home, no radiation to fever, cough, shortness of breath, sweating, black or bloody stools, hematemesis, coffee-ground emesis. Severity is described as severe. Palliating factors include OTC analgesics, has methadone for long-term therapy as well as gabapentin. Provoking factors include status post cholecystectomy. Patient not anticoagulated. Related Data Home Medications Medication Instructions Recorded Confirmed calcium carbonate (Tums) 2,000 mg PO BID 02/02/23 12/01/23 calcitriol 0.5 mcg capsule 0.5 mcg PO BID #360 caps 04/21/23 12/01/23 diclofenac sodium 1 % topical gel 4 g topical QID #100 grams 04/21/23 12/01/23 methadone 10 mg/5 mL oral solution 105 mg PO QAM 06/12/23 12/01/23 polyethylene glycol 3350 17 17 g PO DAILY 06/12/23 12/01/23 gram/dose oral powder gabapentin 300 mg capsule 300 mg PO BID #180 caps 06/23/23 12/01/23 omeprazole 40 mg capsule,delayed 40 mg PO DAILY #90 caps 07/21/23 12/01/23 release cyclobenzaprine 10 mg tablet 10 mg PO TID PRN muscle spasm #30 08/18/23 12/01/23 tabs prochlorperazine maleate 5 mg 5 mg PO TID PRN acute nausea #30 09/06/23 12/01/23 tablet tabs ondansetron 4 mg disintegrating 4 mg PO Q8H PRN nausea and 10/30/23 12/01/23 tablet vomiting #20 tabs simethicone 125 mg chewable tablet 125 mg PO QID PRN abdominal 10/30/23 12/01/23 distention #20 tabs clonazepam 1 mg tablet 1 mg PO BID #56 tabs 11/07/23 12/01/23 magnesium gluconate 27 mg 13.5 mg (1/2 x 27 mg magnesium 11/21/23 12/01/23 magnesium (500 mg) tablet (500 mg)) PO TID #60 tabs famotidine 20 mg tablet 20 mg PO BID 11/24/23 12/01/23 tramadol 50 mg tablet 50 mg PO Q8H PRN #12 tabs 11/26/23 12/01/23 Previous Rx's Medication Instructions Recorded calcitriol 0.5 mcg capsule 0.5 mcg PO BID #360 caps 04/21/23 diclofenac sodium 1 % topical gel 4 g topical QID #100 grams 04/21/23 gabapentin 300 mg capsule 300 mg PO BID #180 caps 06/23/23 omeprazole 40 mg capsule,delayed 40 mg PO DAILY #90 caps 07/21/23 release cyclobenzaprine 10 mg tablet 10 mg PO TID PRN muscle spasm #30 08/18/23 tabs prochlorperazine maleate 5 mg 5 mg PO TID PRN acute nausea #30 09/06/23 tablet tabs ondansetron 4 mg disintegrating 4 mg PO Q8H PRN nausea and 10/30/23 tablet vomiting #20 tabs simethicone 125 mg chewable tablet 125 mg PO QID PRN abdominal 10/30/23 distention #20 tabs clonazepam 1 mg tablet 1 mg PO BID #56 tabs 11/07/23 magnesium gluconate 27 mg 13.5 mg (1/2 x 27 mg magnesium 11/21/23 magnesium (500 mg) tablet (500 mg)) PO TID #60 tabs tramadol 50 mg tablet 50 mg PO Q8H PRN #12 tabs 11/26/23 Allergies Allergy/AdvReac Type Severity Reaction Status Date / Time codeine Allergy Intermediate pass out Verified 12/01/23 15:15 Penicillins Allergy Skin Rash Verified 12/01/23 15:15 amoxicillin AdvReac Intermediate Nausea Verified 12/01/23 15:15 dextromethorphan AdvReac Intermediate Other (See Verified 12/01/23 15:15 [From NyQuil] Comment) doxylamine [From NyQuil] AdvReac Intermediate Other (See Verified 12/01/23 15:15 Comment) pseudoephedrine [From NyQuil] AdvReac Intermediate Other (See Verified 12/01/23 15:15 Comment) General Stated Complaint: [facility] ADRIANA: 3 Review of Systems All systems reviewed & are unremarkable except as noted in HPI and below Exam Narrative Exam Narrative: GENERAL APPEARANCE: obesity, non-toxic, awake and alert, atraumatic, no acute distress. SKIN: Warm, pink, dry, intact, without rashes/lesions/ulcerations. HEAD: Normocephalic, atraumatic, normal hair distribution for gender/age. EYES: Pupils PERRLA, EOMs intact without nystagmus, normal conjunctiva, no exudates on lids/lashes. ENT: Nares patent, no circumoral cyanosis, no facial swelling NECK: Supple, trachea midline, painless cervical ROM. LUNGS/CHEST: Lungs CTA bilaterally- no rhonchi/rales/wheezes diffusely, non- labored respirations, normal A/P diameter, symmetrical expansion, no chest wall deformity, non-pleuritic anterior parasternal chest pain HEART (CV/PV): Regular rate and rhythm without murmur, no peripheral edema, no JVD. ABDOMEN: Soft, non-distended, no guarding, diffuse abdominal tenderness, healing ecchymosis at surgical sites, no erythema or discharge MSK: Normal ROM, no swelling/deformity to bilateral UEs or LEs, moving all extremities without weakness, no cyanosis, spine midline without tenderness, normal curvature. NEURO: Mental Status AAOx4 - alert to person, place, time, events No facial droop, no forehead involvement. Motor: No focal weakness - strength 5/5 in bilateral UEs and LEs, proximal and distal, symmetric. Sensory: sensation intact to light touch globally. Gait normal: patient ambulated without ataxia into ED room. PSYCH: euthymic, cooperative, pleasant, appropriate speech Course Vital Signs Vital signs: Vital Signs Temperature 36.2 C L 12/02/23 09:07 Pulse 104 H 12/02/23 09:07 Respiratory Rate 20 12/02/23 09:07 Blood Pressure 127/70 12/02/23 09:07 Pulse Oximetry 99 12/02/23 09:07 Temperature 36.2 C L 12/02/23 09:07 Temperature Source Tympanic 12/02/23 09:07 Pulse 104 H 12/02/23 09:07 Respiratory Rate 20 12/02/23 09:07 Blood Pressure 127/70 12/02/23 09:07 Blood Pressure Position Sitting 12/02/23 09:07 Pulse Oximetry 99 12/02/23 09:07 Oxygen Delivery Method Room Air 12/02/23 09:07 Oxygen Flow Rate 0 12/02/23 09:07 Pain Level 4 12/02/23 09:31 Lab/Test Results Lab/Test Results: 12/02/23 09:19 Blood Blood Culture - Pending 12/02/23 09:19 Blood Blood Culture - Pending Laboratory Tests Range/Units 12/02/23 09:17 WBC (4.4-10.8) 10^3/uL 6.20 RBC (4.36-5.78) 10^6/uL 4.03 L Hgb (13.5-17.5) g/dL 11.5 L Hct (40.0-50.0) % 35.3 L MCV (80-95) fL 88 MCH (27.0-33.0) pg 28.5 MCHC (32.0-36.0) % 32.6 RDW (11.8-14.1) % 13.0 Plt Count (130-400) 10^3/uL 302 MPV (8.0-11.0) fL 9.9 Immature Gran % % 0.5 Neutrophils % % 52.5 Lymphocytes % % 32.4 Monocytes % % 10.6 Eosinophils % % 3.5 Basophils % % 0.5 Nucleated RBC % (0.0-0.3) % 0.0 Absolute Neutrophils (1.2-6.7) 10^3/uL 3.25 Absolute Lymphocytes (1.2-3.4) 10^3/uL 2.01 Absolute Monocytes (0.1-0.8) 10^3/uL 0.66 Absolute Eosinophils (0.0-0.7) 10^3/uL 0.22 Absolute Basophils (0.0-0.2) 10^3/uL 0.03 VBG Lactate (0.6-1.4) mmol/L 1.0 Medical Decision Making This dictation utilizes [id number] dictation software and may contain unedited grammatical errors. 28 year-old male presents to ED today by POV/ambulating with a chief complaint of chest pain with onset about 1 hour prior to arrival. Patient is 6 days post- op from cholecystectomy, having abdominal pain, leg pain yesterday- third ED visit since surgery. Quality described as sharp parasternal chest pains this morning, is having continued upper abdominal pain and states he has nausea and vomiting, has ondansetron at home, no radiation to fever, cough, shortness of breath, sweating, black or bloody stools, hematemesis, coffee-ground emesis. Sev erity is described as severe. Palliating factors include OTC analgesics, has methadone for long-term therapy as well as gabapentin. Provoking factors include status post cholecystectomy. Patients' medical history: Complex medical history with high utilization of ED, had primary hyperparathyroidism with parathyroidectomy, history of hyperlipidemia, CKD, anxiety, biliary colic, sphincter of Oddi dysfunction, long-term methadone use. Family and social history: Noncontributory. Pertinent exam findings / vital signs include diffuse abdominal tenderness without overt peritoneal signs, findings consistent with recent surgical procedure, benign cardiopulmonary exam, has baseline tachycardia, neuro intact. Differential / pathologies of concern include PE, ACS, biliary colic, retained gallstone, pneumonia Diagnostic studies of: -CBC, CMP, D-dimer, lactate, serial troponins, BNP, procalcitonin, lipase, urinalysis, EKG, CTA of the chest. -CBC shows no leukocytosis, has baseline anemia -CMP is unremarkable for electrolyte abnormality, has significant upward trending liver enzymes without elevation of bilirubin-discussed with Dr. Clement of general surgery-recommends recheck -Magnesium mildly low will normalize with p.o. intake -D-dimer 1200, performing CTA -Lipase negative -Serial troponins negative -BNP negative -Lactate negative, procalcitonin negative-do not suspect sepsis -Urinalysis benign -CTA of the chest has no acute findings, no PE, no PNA -EKG shows sinus tachycardia at 111 bpm with P waves followed by narrow complex QRS, normal axis, good R wave progression, no ST changes, normal QT QTc, consistent with priors, has baseline tachycardia and many prior visits Interventions of: -Provided IV fluids and pain relievers, counseled him on likely normal postoperative pain, I did discuss his elevated liver enzymes I did order a recheck of his LFTs within 24 to 48 hours, discussed with surgery who are unimpressed due to his normal bilirubin and do not suspect retained stone. ED Course/Assessment/Plan: 28-year-old male with a high utilization of ED history presents with postoperative upper abdominal/chest pain, he has been worked up multiple times since having his gallbladder removed with negative studies, his CTA of his chest is negative for any PE or pneumonia, he has no signs of sepsis on exam, he has no signs of postoperative complication of pneumonia. He does have rising liver enzymes which could be expected after surgery to the biliary tree and has no signs of obstructive biliary pathology with normal bilirubin. I did order an outpatient recheck of his LFTs for him and recommend he follow-up with primary care as well as general surgery service for first postoperative visit. Strict return criteria for any worsening, inability to tolerate p.o. intake, further chest pain or shortness of breath, black or bloody stools or vomiting. Findings not consistent with sepsis, biliary obstruction, PE, acute coronary syndrome. Disposition of Abdominal Pain. Patient verbalized understanding of the plan and return to ED criteria and engaged in shared decision making. Medical Records Medical records reviewed: Yes I reviewed the patient's medical records. Imaging Data Radiologic Study: Attestation: I personally reviewed and interpreted this imaging study as follows: Imaging: CT Scan Radiologist's impression: EXAM: CT CHEST PE CTA CLINICAL HISTORY: chest pain, tachycardic. TECHNIQUE: Imaging Protocol: CT angiography of the chest was performed using pulmonary embolus protocol. Multi planar reconstructions were performed. CONTRAST MATERIAL: Intravenous: Omnipaque 350 Contrast volume: 100 cc COMPARISON: CT CT CHEST PE CTA from 11/29/2023 FINDINGS: CHEST: PULMONARY ARTERIES: Less than optimal bolus injection. There are no obvious intraluminal filling defects to suggest acute pulmonary emboli. LUNGS: There are no infiltrates nor evidence of pulmonary infarction.. There are no pleural effusions. MEDIASTINUM: There is no hilar nor mediastinal adenopathy. Visualized thyroid unremarkable. CARDIAC: Heart size is upper normal. There is no pericardial effusion.Caliber of the thoracic aorta is within normal limits. No evidence of dissection. There is no significant shift of the interventricular septum. PARTIALLY VISUALIZED UPPERMOST ABDOMEN: No adrenal masses. No splenomegaly. Gallbladder surgically absent. OSSEOUS: No significant osseous lesions.. IMPRESSION: 1. No evidence of obvious acute pulmonary emboli. No evidence of pulmonary infarction.No pleural effusions. 2. No confluent infiltrates and no intrathoracic adenopathy evident Lab Data Lab results reviewed: Yes I reviewed the patient's lab results. Labs: 12/02/23 12:15 Blood Blood Culture - Pending 12/02/23 11:50 Blood Blood Culture - Pending Laboratory Tests Range/Units 12/02/23 12/02/23 12/02/23 09:17 10:25 12:43 WBC (4.4-10.8) 10^3/uL 6.20 RBC (4.36-5.78) 10^6/uL 4.03 L Hgb (13.5-17.5) g/dL 11.5 L Hct (40.0-50.0) % 35.3 L MCV (80-95) fL 88 MCH (27.0-33.0) pg 28.5 MCHC (32.0-36.0) % 32.6 RDW (11.8-14.1) % 13.0 Plt Count (130-400) 10^3/uL 302 MPV (8.0-11.0) fL 9.9 Immature Gran % % 0.5 Neutrophils % % 52.5 Lymphocytes % % 32.4 Monocytes % % 10.6 Eosinophils % % 3.5 Basophils % % 0.5 Nucleated RBC % (0.0-0.3) % 0.0 Absolute Neutrophils (1.2-6.7) 10^3/uL 3.25 Absolute Lymphocytes (1.2-3.4) 10^3/uL 2.01 Absolute Monocytes (0.1-0.8) 10^3/uL 0.66 Absolute Eosinophils (0.0-0.7) 10^3/uL 0.22 Absolute Basophils (0.0-0.2) 10^3/uL 0.03 D-Dimer (<500) ng/mlFEU 1223 H VBG Lactate (0.6-1.4) mmol/L 1.0 Sodium (136-145) mmol/L 139 Potassium (3.5-5.1) mmol/L 3.6 Chloride (98-107) mmol/L 101 Carbon Dioxide (21.0-32.0) mmol/L 30.5 Anion Gap (3-11) mmol/L 7.5 BUN (7-18) mg/dL 17 Creatinine (0.70-1.30) mg/dL 1.2 Est GFR (CKD-EPI 2020) (mL/min/1.73m2) 83.43 Glucose (74-106) mg/dL 118 H Calcium (8.5-10.1) mg/dL 8.5 Magnesium (1.8-2.4) mg/dL 1.7 L Total Bilirubin (0.2-1.0) mg/dL 0.2 AST (15-37) U/L 96 H ALT (16-63) U/L 509 H Alkaline Phosphatase (46-116) U/L 296 H Troponin I (< or =60) ng/L < 50 < 50 NT-Pro-B Natriuret Pep (<300) pg/mL 17 Total Protein (6.4-8.2) g/dL 7.5 Albumin (3.4-5.0) g/dL 3.0 L Lipase (16-77) U/L 27 Procalcitonin ng/mL < 0.1 Urine Color (Yellow) Yellow Urine Clarity (Clear) Clear Urine pH (5-8) 5.5 Ur Specific [place] (1.005-1.025) 1.025 Urine Protein (Neg-Trace) mg/dL Negative Urine Ketones (Negative) mg/dL Negative Urine Blood (Negative) Trace-intact H Urine Nitrite (Negative) Negative Urine Bilirubin (Negative) Negative Urine Urobilinogen (Up to 0.2) mg/dL 0.2 Ur Leukocyte Esterase (Negative) Negative Urine RBC (0-2) HPF 0-2 Urine WBC (0-5) HPF Negative Ur Epithelial Cells (Negative) HPF Few Urine Crystals (Negative) HPF Negative Urine Bacteria (Negative) HPF Negative Urine Casts (Negative) LPF Negative Urine Mucus (Negative) Negative Ur Culture Indicated? No Urine Glucose (Negative) mg/dL Negative Quality:SDOH Health Related Social Needs: Health related social needs transpo insecurity [facility] All Active Problems (Updated 12/02/23 @ 13:14 by ANDREW Coleman) Abdominal pain (Acute) Leg pain (Acute) Chest pain (Acute) Transaminitis (Acute) Encounter for postoperative wound check (Acute) Hypomagnesemia (Acute) Anxiety (Chronic) Anxiety (Chronic) Hypomagnesemia (Acute) Elevated TSH (Acute) Congestion of upper respiratory tract (Acute) Chest pain (Acute) Strain of right groin (Acute) Chronic abdominal pain (Acute) Bronchitis (Acute) 10/08/2023 - Dx @ [facility] E/R Chani MORALES Bronchitis (Acute) Testicle lump (Acute) Hamstring tendinitis of left thigh (Acute) Pes anserine bursitis (Acute) Hypernatremia (Acute) Cervical radiculopathy (Acute) URI (upper respiratory infection) (Acute) Left-sided Flower's palsy (Acute) Neck pain on left side (Acute) Constipation (Acute) Grief reaction (Chronic) Opiate dependence, continuous (Acute) Cellulitis (Acute) Cholelithiases (Acute) 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 Possible 2' Methadone, Clnzpm (?). Surg eval (+)/No further action. History of electrolyte imbalance (Acute) Neck pain on left side (Acute) with shoulder, upper back pain.. torticollis, radiating into left hip/leg Pulmonary nodule 1 cm or greater in diameter (Chronic) Therapeutic opioid induced constipation (Acute) Sphincter of Oddi dysfunction (Chronic) Abnormal CT scan, kidney (Acute) Intrahepatic bile duct dilation (Acute) Common bile duct dilatation (Chronic) Has been dilated for quite some time, now more-so. Normal LFTs. Known gallstones. Abdominal pain (Acute) Iatrogenic hypocalcemia (Acute) Multiple endocrine neoplasia type I (Chronic) Chronic constipation (Chronic) Depression (Chronic) Hypomagnesemia (Chronic) Hypocalcemia (Chronic) Depression (Chronic) Suicidal ideation (Acute) Elevated parathyroid hormone (Acute) Family history of coronary arteriosclerosis (Chronic) Father of MA at 50, mother had MA at 42 Severe anxiety with panic (Chronic) Cellulitis (Acute) Medical History CKD (chronic kidney disease) stage 2, GFR 60-89 ml/min GFR 64-65, with Hx FLORESITA and GFR < 45 Primary hyperparathyroidism Complex medical condition Serious electrolyte imbalances, with gynecomastia, possible MEN Dx, CKD and anemia with baseline anxiety and Hx PTSD. Hypocalcemia Anxiety Depression Hyperlipidemia Family history of multiple endocrine neoplasia, type 1 PTSD (post-traumatic stress disorder) Per pt. states no triggers at this time. Surgical History History of laparoscopic cholecystectomy (~11/2023) H/O parathyroidectomy Family History Mother Anxiety Asthma Depression Sister Anxiety Depression Father Cancer lung & stomach Depression Diabetes Hypertension MEN 1 (multiple endocrine neoplasia) Social History Smoking/Tobacco Use Status: Never Smoking risk assessment performed?: Yes Alcohol Intake: never Drug use: Current Sobriety Substance use type: former substance user Adopted: No Caregiver/Support person: No Foster care: No Household members: none Housing: apartment Number of Children: 0 Communication Needs: None Education Level: high school Do you need help understanding health information?: Never current occupation: [employer] Pets and animals: Yes (Ally) Pets and animals: dog(s) Sexually active: No Do you think of yourself as: straight/heterosexual Current gender identity: male What is your relationship status?: How often do you talk on the phone with friends or family?: twice per week How often do you get together with friends or relatives?: never Do you belong to any clubs or organized social groups?: no Panel score (0-1 are the most socially isolated patients): 0 What type of physical activity do you participate in: walking Duration: 15-30 minutes/day Frequency: 5-6 times per week Maryam/Congregational: [employer] Special maryam needs: No Seatbelt use: always Helmet use: Yes Helmet use: always Drive intox or ride w/intox [employer] hazmat tanker 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
[2023-12-02 09:40] VITALS: RESP 20
[2023-12-02 09:54] LABS: ALT 509 U/L (16-63); AST 96 U/L (15-37); Alkaline Phosphatase 296 U/L (46-116); Anion Gap 7.5 mmol/L (3-11); BUN 17 mg/dL (7-18); Bilirubin, Total 0.2 mg/dL (0.2-1.0); CO2 30.5 mmol/L (21.0-32.0); CREATININE 1.2 mg/dL (0.70-1.30); Calcium 8.5 mg/dL (8.5-10.1); Chloride 101 mmol/L (98-107); Estimated GFR 83.43 (mL/min/1.73m2); Glucose 118 mg/dL (74-106); Lipase 27 U/L (16-77); Magnesium 1.7 mg/dL (1.8-2.4); NT-proBNP 17 pg/mL (<300); Potassium 3.6 mmol/L (3.5-5.1); Sodium 139 mmol/L (136-145); Total Protein 7.5 g/dL (6.4-8.2)
[2023-12-02 09:56] LABS: Troponin I < 50 ng/L (< or =60)
[2023-12-02 10:06] LABS: D-Dimer 1223 ng/mlFEU (<500)
[2023-12-02 10:09] LABS: Procalcitonin < 0.1 ng/mL
--- NOTE | 2023-12-02 10:15 | DI.CT_ITS ---
Exam(s) CT CHEST PE CTA EXAM: CT CHEST PE CTA CLINICAL HISTORY: chest pain, tachycardic. TECHNIQUE: Imaging Protocol: CT angiography of the chest was performed using pulmonary embolus pancho col. Multi planar reconstructions were performed. CONTRAST MATERIAL: Intravenous: Omnipaque 350 Contrast volume: 100 cc COMPARISON: CT CT CHEST PE CTA from 11/29/2023 FINDINGS: CHEST: PULMONARY ARTERIES: Less than optimal bolus injection. There are no obvious intraluminal filling def ects to suggest acute pulmonary emboli. LUNGS: There are no infiltrates nor evidence of pulmonary infarction.. There are no pleural effusions . MEDIASTINUM: There is no hilar nor mediastinal adenopathy. Visualized thyroid unremarkable. CARDIAC: Heart size is upper normal. There is no pericardial effusion.Caliber of the thoracic aorta is within normal limits. No evidence of dissection. There is no significant shift of the interventri cular septum. PARTIALLY VISUALIZED UPPERMOST ABDOMEN: No adrenal masses. No splenomegaly. Gallbladder surgically absent. OSSEOUS: No significant osseous lesions.. IMPRESSION: 1. No evidence of obvious acute pulmonary emboli. No evidence of pulmonary infarction.No pleural eff usions. 2. No confluent infiltrates and no intrathoracic adenopathy evident Called by myself to ER provider. RADIATION DOSE DELIVERED: 501.93mGy.cm Total DLP DATA REPOSITORY: All CT scans at this facility are submitted to the National Radiology Data Registry (NRDR) Dose Index Registry (DIR) with the [employer] (ACR). RADIATION OPTIMIZATION: All CT scans at this facility use at least one of these dose optimization te chniques: automated exposure control; mA and/or kV adjustment per patient size (includes targeted exa ms where dose is matched to clinical indication); or iterative reconstruction.
--- NOTE | 2023-12-02 10:44 | W.SURGCON ---
Date of service: 12/02/23 Time of Service: 10:44 Assessment and Plan Assessment and plan (1) Transaminitis: Status: Acute Assessment and plan: 28-year-old man postop day 6 from laparoscopic cholecystectomy. He is hemodynamically stable and doing well. From a clinical aspect, there are no concerns. His vital signs are normal and he is breathing/saturating adequately on room air. He is in no distress. He has had 2 negative chest CTAs for this chest pain. He has had ultrasound of the lower extremities to rule out DVTs. The only abnormality is mildly elevated transaminases and alk phos but normal bilirubin. There is no obstructive picture here. Elevation of liver enzymes following laparoscopic cholecystectomy is a well?established phenomenon that in general is accepted to be transient and clinically insignificant. There is very on the cause and range from anything from side effects of pneumoperitoneum to blunt liver trauma during retraction to the decrease in segmental blood flow of any region associated with the gallbladder vasculature. Portal vein thrombosis could be considered as well but in the absence of any abdominal pain, it is unlikely to have any clinical significance either. He can be safely discharged home at this point with outpatient follow-up in the office. 28 minutes spent on consultation and discussion History of Present Illness Narrative: Patient is a 28-year-old man well-known to the emergency department in the surgical practice. He frequents the ER on a very regular basis. He had a gallbladder surgery 6 days ago. He has had gallbladder issues for years. He has had dilated common duct as well as elevated LFTs on and off throughout these years. Today he came in because he said he was having chest pain. He woke up and when he took a deep breath he felt like he was having a heart attack and could not breathe right. He denies any significant abdominal discomfort. He says his belly feels perfectly fine actually. His incisions are not bothering him. PFSH All Active Problems (Updated 12/02/23 @ 13:14 by ANDREW Coleman) Abdominal pain (Acute) Leg pain (Acute) Chest pain (Acute) Transaminitis (Acute) Encounter for postoperative wound check (Acute) Hypomagnesemia (Acute) Anxiety (Chronic) Anxiety (Chronic) Hypomagnesemia (Acute) Elevated TSH (Acute) Congestion of upper respiratory tract (Acute) Chest pain (Acute) Strain of right groin (Acute) Chronic abdominal pain (Acute) Bronchitis (Acute) 10/08/2023 - Dx @ [facility] E/R Chani MORALES Bronchitis (Acute) Testicle lump (Acute) Hamstring tendinitis of left thigh (Acute) Pes anserine bursitis (Acute) Hypernatremia (Acute) Cervical radiculopathy (Acute) URI (upper respiratory infection) (Acute) Left-sided Flower's palsy (Acute) Neck pain on left side (Acute) Constipation (Acute) Grief reaction (Chronic) Opiate dependence, continuous (Acute) Cellulitis (Acute) Cholelithiases (Acute) 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 Possible 2' Methadone, Clnzpm (?). Surg eval (+)/No further action. History of electrolyte imbalance (Acute) Neck pain on left side (Acute) with shoulder, upper back pain.. torticollis, radiating into left hip/leg Pulmonary nodule 1 cm or greater in diameter (Chronic) Therapeutic opioid induced constipation (Acute) Sphincter of Oddi dysfunction (Chronic) Abnormal CT scan, kidney (Acute) Intrahepatic bile duct dilation (Acute) Common bile duct dilatation (Chronic) Has been dilated for quite some time, now more-so. Normal LFTs. Known gallstones. Abdominal pain (Acute) Iatrogenic hypocalcemia (Acute) Multiple endocrine neoplasia type I (Chronic) Chronic constipation (Chronic) Depression (Chronic) Hypomagnesemia (Chronic) Hypocalcemia (Chronic) Depression (Chronic) Suicidal ideation (Acute) Elevated parathyroid hormone (Acute) Family history of coronary arteriosclerosis (Chronic) Father of NC at 50, mother had NC at 42 Severe anxiety with panic (Chronic) Cellulitis (Acute) Medical History CKD (chronic kidney disease) stage 2, GFR 60-89 ml/min GFR 64-65, with Hx FLORESITA and GFR < 45 Primary hyperparathyroidism Complex medical condition Serious electrolyte imbalances, with gynecomastia, possible MEN Dx, CKD and anemia with baseline anxiety and Hx PTSD. Hypocalcemia Anxiety Depression Hyperlipidemia Family history of multiple endocrine neoplasia, type 1 PTSD (post-traumatic stress disorder) Per pt. states no triggers at this time. Surgical History History of laparoscopic cholecystectomy (~11/2023) H/O parathyroidectomy Family History Mother Anxiety Asthma Depression Sister Anxiety Depression Father Cancer lung & stomach Depression Diabetes Hypertension MEN 1 (multiple endocrine neoplasia) Social History Smoking/Tobacco Use Status: Never Smoking risk assessment performed?: Yes Alcohol Intake: never Drug use: Current Sobriety Substance use type: former substance user Adopted: No Caregiver/Support person: No Foster care: No Household members: none Housing: apartment Number of Children: 0 Communication Needs: None Education Level: high school Do you need help understanding health information?: Never 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[employer] Pets and animals: Yes (Ally) Pets and animals: dog(s) Sexually active: No Do you think of yourself as: straight/heterosexual Current gender identity: male What is your relationship status?: How often do you talk on the phone with friends or family?: twice per week How often do you get together with friends or relatives?: never Do you belong to any clubs or organized social groups?: no Panel score (0-1 are the most socially isolated patients): 0 What type of physical activity do you participate in: walking Duration: 15-30 minutes/day Frequency: 5-6 times per week Maryam/Mormonism: Restorationist Special maryam needs: No Seatbelt use: always Helmet use: Yes Helmet use: always Drive intox or ride w/intox cmv 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 Exam Narrative Exam Narrative: General: Nontoxic, comfortable, interactive, obese, no scleral icterus Neuro: Alert and oriented x 3 Psych: Reasonable mood and affect, seemingly good insight and understanding Chest: Nonlabored breathing Heart: Regular Abdomen: Soft, nondistended and grossly nontender. Obese. Incision sites look as expected. No erythema, some old?appearing ecchymosis around the port sites as expected. Glue intact. Results Last Vital Signs Temp 97.2 F L 12/02/23 09:38 Pulse 104 H 12/02/23 09:38 Resp 20 12/02/23 09:40 BP 127/70 12/02/23 09:38 Pulse Ox 99 12/02/23 09:38 Labs 12/02/23 09:17 12/02/23 09:17 Labs: Laboratory Results - last 24 hr 12/02/23 09:17 WBC 6.20 RBC 4.03 L Hgb 11.5 L Hct 35.3 L MCV 88 MCH 28.5 MCHC 32.6 RDW 13.0 Plt Count 302 MPV 9.9 Immature Gran % 0.5 Neutrophils % 52.5 Lymphocytes % 32.4 Monocytes % 10.6 Eosinophils % 3.5 Basophils % 0.5 Nucleated RBC % 0.0 Absolute Neutrophils 3.25 Absolute Lymphocytes 2.01 Absolute Monocytes 0.66 Absolute Eosinophils 0.22 Absolute Basophils 0.03 D-Dimer 1223 H VBG Lactate 1.0 Sodium 139 Potassium 3.6 Chloride 101 Carbon Dioxide 30.5 Anion Gap 7.5 BUN 17 Creatinine 1.2 Est GFR (CKD-EPI 2020) 83.43 Glucose 118 H Calcium 8.5 Magnesium 1.7 L Total Bilirubin 0.2 AST 96 H ALT 509 H Alkaline Phosphatase 296 H Troponin I < 50 NT-Pro-B Natriuret Pep 17 Total Protein 7.5 Albumin 3.0 L Lipase 27 Procalcitonin < 0.1
[2023-12-02] MEDS: Normal Saline - Diluent 50 ML VIAL IJ (11:18)
[2023-12-02] MEDS: Omnipaque 350 MG/ML 500 ML BTL-Imaging package 100 ML IJ (11:19)
[2023-12-02 11:54] VITALS: BP 135/64; PULSE 83; RESP 14; TEMP 36.4; O2SAT 96
[2023-12-02 12:00] LABS: Bilirubin Negative (Negative); Blood Trace-intact (Negative); Clarity Clear (Clear); Glucose Negative (Negative); Ketones Negative (Negative); Leukocyte Esterase Negative (Negative); Nitrite Negative (Negative); Specific Gravity 1.025 (1.005-1.025); Urobilinogen 0.2 mg/dL (Up to 0.2); pH 5.5 (5-8)
[2023-12-02 12:28] LABS: Bacteria Negative HPF (Negative); C & S Indicated? No; Casts Negative LPF (Negative); Crystals Negative HPF (Negative); Epithelial Cells Few HPF (Negative); Mucus Negative (Negative); RBC 0-2 HPF (0-2); WBC Negative HPF (0-5)
[2023-12-02 13:08] LABS: Troponin I < 50 ng/L (< or =60)
[2023-12-02 13:28] VITALS: BP 112/69; PULSE 103; RESP 16; TEMP 36.4; O2SAT 96
[2023-12-02 13:41] VITALS: BP 127/70; PULSE 104; RESP 16; TEMP 36.4; O2SAT 96
--- NOTE | 2023-12-02 14:20 | NUR.NOTE ---
Referral faxed to [facility]/Dr Vivar for labs to be drawn Thurs stat/ results to Dr Caden POWELL. Dr. Vivar please read provider note for ED regarding labs Nursing Note:
== END 2023-12-02 13:43 | disposition home or self-care (01) ==
PROVIDERS: Emergency Provider Physician Assistant; PCP Family Medicine
DX: R07.9 Chest pain, unspecified (principal); R11.2 Nausea with vomiting, unspecified; I12.9 Hypertensive chronic kidney disease with stage 1 through stage 4 chronic kidney disease, or unspecified chronic kidney disease; N18.2 Chronic kidney disease, stage 2 (mild); E21.0 Primary hyperparathyroidism; E78.5 Hyperlipidemia, unspecified; R00.1 Bradycardia, unspecified; Z90.49 Acquired absence of other specified parts of digestive tract; Z98.890 Other specified postprocedural states
CPT/HCPCS: 00123; 36415; 71275; 80053; 83690; 84145; 87040; 93005; 96365; 96375; 99285; 81003; 81015; 83605; 83735; 83880; 84484; 85025; 85379; 93010; 99284; J0131; J1885; J2405

== ENCOUNTER 2023-12-11 20:19 | Emergency (ER) | payer MEDICAID, SELFPAY ==
--- NOTE | 2023-12-11 20:15 | RT.EKG_ITS ---
APPROVED REPORT Exam: Resting ECG Reason for Exam: chest pain Patient Location: E HR:100 bpm ECG Measurements Heart Rate 100 AXIS IA 173 P 36 QRSd 98 QRS 25 QT 358 T 27 QTc 462 Conclusion Sinus tachycardia...rate> 99 sinus tachycardia, normal axis, normal intervals, non ischemic
[2023-12-11 20:25] VITALS: BP 139/89; PULSE 113; RESP 18; TEMP 36.8; O2SAT 100
[2023-12-11 20:28] VITALS: RESP 18
[2023-12-11 20:30] VITALS: BP 139/89; PULSE 101; RESP 18; O2SAT 100
--- NOTE | 2023-12-11 20:55 | W.ED.GENAD ---
Discharge Plan Disposition Patient Disposition: Home Condition: Improving Discharge Details Chief Complaint: SOB Clinical Impression: Paresthesia Primary Care Provider: Brendon Vivar ED Provider: Ajay Kennedy Home Meds and New Rx's Prescriptions: No Action gabapentin 300 mg capsule 300 mg PO BID Qty: 180 3RF clonazepam 1 mg tablet 1 mg PO BID Qty: 56 1RF cyclobenzaprine 10 mg tablet 10 mg PO TID PRN (Reason: muscle spasm) Qty: 30 3RF methadone 10 mg/5 mL solution 105 mg PO QAM calcitriol 0.5 mcg capsule 0.5 mcg PO BID Qty: 360 3RF Hold Instructions: Resume on 06/15/22. diclofenac sodium 1 % gel 4 g topical QID Qty: 100 6RF Rx Instructions: apply to single knee, ankle, foot; for foot includes sole/toes/top of foot polyethylene glycol 3350 17 gram/dose powder 17 g PO DAILY omeprazole 40 mg capsule,delayed release(DR/EC) 40 mg PO DAILY Qty: 90 3RF famotidine 20 mg tablet 20 mg PO BID calcium carbonate [Tums] 200 mg calcium (500 mg) tablet,chewable 2,000 mg PO BID Hold Instructions: Resume on 05/12/23. Please hold your nightly dose tonight and your a.m. dose tomorrow morning. prochlorperazine maleate 5 mg tablet 5 mg PO TID PRN (Reason: acute nausea) Qty: 30 0RF ondansetron 4 mg tablet,disintegrating 4 mg PO Q8H PRN (Reason: nausea and vomiting) Qty: 20 0RF simethicone 125 mg tablet,chewable 125 mg PO QID PRN (Reason: abdominal distention) Qty: 20 0RF magnesium gluconate 27 mg magnesium (500 mg) tablet 13.5 mg PO TID Qty: 60 3RF Discharge Instructions Instructions: Paresthesia (DC) HPI General Date/Time Provider Initiated Documentation: 12/11/23 20:34. HPI Narrative: 28-year-old male history of hypomagnesemia and hypocalcemia presents with sensation of tingling near his lips and tingling fingers, endorses that this feels similar to his prior episodes of hypomagnesemia and hypocalcemia also endorses that he does have some anxiety and took 0.5 mg of Ativan about 4 hours ago. Related Data Home Medications Medication Instructions Recorded Confirmed calcium carbonate (Tums) 2,000 mg PO BID 02/02/23 12/09/23 calcitriol 0.5 mcg capsule 0.5 mcg PO BID #360 caps 04/21/23 12/09/23 diclofenac sodium 1 % topical gel 4 g topical QID #100 grams 04/21/23 12/09/23 methadone 10 mg/5 mL oral solution 105 mg PO QAM 06/12/23 12/09/23 polyethylene glycol 3350 17 17 g PO DAILY 06/12/23 12/09/23 gram/dose oral powder gabapentin 300 mg capsule 300 mg PO BID #180 caps 06/23/23 12/09/23 omeprazole 40 mg capsule,delayed 40 mg PO DAILY #90 caps 07/21/23 12/09/23 release prochlorperazine maleate 5 mg 5 mg PO TID PRN acute nausea #30 09/06/23 12/09/23 tablet tabs ondansetron 4 mg disintegrating 4 mg PO Q8H PRN nausea and 10/30/23 12/09/23 tablet vomiting #20 tabs simethicone 125 mg chewable tablet 125 mg PO QID PRN abdominal 10/30/23 12/09/23 distention #20 tabs magnesium gluconate 27 mg 13.5 mg (1/2 x 27 mg magnesium 11/21/23 12/09/23 magnesium (500 mg) tablet (500 mg)) PO TID #60 tabs famotidine 20 mg tablet 20 mg PO BID 11/24/23 12/09/23 clonazepam 1 mg tablet 1 mg PO BID #56 tabs 12/04/23 12/09/23 cyclobenzaprine 10 mg tablet 10 mg PO TID PRN muscle spasm #30 12/04/23 12/09/23 tabs Previous Rx's Medication Instructions Recorded calcitriol 0.5 mcg capsule 0.5 mcg PO BID #360 caps 04/21/23 diclofenac sodium 1 % topical gel 4 g topical QID #100 grams 04/21/23 gabapentin 300 mg capsule 300 mg PO BID #180 caps 06/23/23 omeprazole 40 mg capsule,delayed 40 mg PO DAILY #90 caps 07/21/23 release prochlorperazine maleate 5 mg 5 mg PO TID PRN acute nausea #30 09/06/23 tablet tabs ondansetron 4 mg disintegrating 4 mg PO Q8H PRN nausea and 10/30/23 tablet vomiting #20 tabs simethicone 125 mg chewable tablet 125 mg PO QID PRN abdominal 10/30/23 distention #20 tabs magnesium gluconate 27 mg 13.5 mg (1/2 x 27 mg magnesium 11/21/23 magnesium (500 mg) tablet (500 mg)) PO TID #60 tabs clonazepam 1 mg tablet 1 mg PO BID #56 tabs 12/04/23 cyclobenzaprine 10 mg tablet 10 mg PO TID PRN muscle spasm #30 12/04/23 tabs Allergies Allergy/AdvReac Type Severity Reaction Status Date / Time codeine Allergy Intermediate pass out Verified 12/09/23 07:39 Penicillins Allergy Skin Rash Verified 12/09/23 07:39 amoxicillin AdvReac Intermediate Nausea Verified 12/09/23 07:39 dextromethorphan AdvReac Intermediate Other (See Verified 12/09/23 07:39 [From NyQuil] Comment) doxylamine [From NyQuil] AdvReac Intermediate Other (See Verified 12/09/23 07:39 Comment) pseudoephedrine [From NyQuil] AdvReac Intermediate Other (See Verified 12/09/23 07:39 Comment) General Stated Complaint: SOB ADRIANA: 3 Review of Systems Narrative: Review of Systems Constitutional: negative Eyes: negative ENT: negative Cardiovascular: negative Respiratory: negative Gastrointestinal: negative : negative Musculoskeletal: negative Skin: negative Neurologic: Paresthesia Psych: negative Exam Narrative Exam Narrative: Physical Examination General: alert, awake, cooperative, resting comfortably, no acute distress HEENT: normocephalic, atraumatic; PERRL, EOM intact, conjunctiva normal; no nasal discharge; moist mucous membranes, oral and pharyngeal mucosa normal, tolerating secretions Neck: supple, trachea midline; full ROM Chest: normal to inspection Respiratory: normal respiratory effort, speaking in full sentences, clear to auscultation, no wheezing, rales or rhonchi Cardiac: regular rate, regular rhythm, S1S2 intact, no murmurs rubs or gallops GI: abdomen soft, non-tender, non-distended; no palpable mass or hepatosplenomegaly Skin: no lesions, rashes or trauma appreciated Neuro: AAOx3, normal speech, moving all extremities Extremities: No peripheral edema Psych: Appropriate mood and affect Course Vital Signs Vital signs: Vital Signs Temperature 36.8 C 12/11/23 20:25 Pulse 113 H 12/11/23 20:25 Respiratory Rate 18 12/11/23 20:25 Blood Pressure 139/89 12/11/23 20:25 Pulse Oximetry 100 12/11/23 20:25 Temperature 36.8 C 12/11/23 20:25 Temperature Source Skin 12/11/23 20:25 Pulse 101 H 12/11/23 20:30 Respiratory Rate 18 12/11/23 20:30 Respiratory Effort Normal, Non-Labored 12/11/23 20:28 Respiratory Depth Normal 12/11/23 20:28 Respiratory Pattern Normal 12/11/23 20:28 Blood Pressure 139/89 12/11/23 20:30 Blood Pressure Position Supine 12/11/23 20:30 Pulse Oximetry 100 12/11/23 20:30 Oxygen Delivery Method Room Air 12/11/23 20:30 Oxygen Flow Rate 0 12/11/23 20:25 Pain Level 4 12/11/23 20:30 Medical Decision Making 28-year-old male history of hypomagnesemia and hypocalcemia presents with sensation of tingling near his lips and tingling fingers, endorses that this feels similar to his prior episodes of hypomagnesemia and hypocalcemia also endorses that he does have some anxiety and took 0.5 mg of Ativan about 4 hours ago. Currently resting comfortably no acute distress hemodynamically stable afebrile nontoxic, not hypoxic lungs clear bilaterally consider electrolyte derangement versus anxiety EKG normal sinus rhythm nonischemic 10:06 resting comfortably. Feeling improvement Quality:SDOH Health Related Social Needs: Health related social needs transpo insecurity PFSH All Active Problems (Updated 12/11/23 @ 22:07 by Ajay Kennedy MD) Paresthesia (Acute) Abdominal pain (Acute) Leg pain (Acute) Chest pain (Acute) Transaminitis (Acute) Encounter for postoperative wound check (Acute) Hypomagnesemia (Acute) Anxiety (Chronic) Anxiety (Chronic) Hypomagnesemia (Acute) Elevated TSH (Acute) Congestion of upper respiratory tract (Acute) Bronchitis (Acute) 10/08/2023 - Dx @ 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 ED Left arm numbness (Acute) Gynecomastia, male (Acute) b/l, per CT (Jul 2022).. Possible 2' Methadone, Clnzpm (?). Surg eval (+)/No further action. History of electrolyte imbalance (Acute) Neck pain on left side (Acute) with shoulder, upper back pain.. torticollis, radiating into left hip/leg Pulmonary nodule 1 cm or greater in diameter (Chronic) Therapeutic opioid induced constipation (Acute) Sphincter of Oddi dysfunction (Chronic) Abnormal CT scan, kidney (Acute) Intrahepatic bile duct dilation (Acute) Common bile duct dilatation (Chronic) Has been dilated for quite some time, now more-so. Normal LFTs. Known gallstones. Abdominal pain (Acute) Iatrogenic hypocalcemia (Acute) Multiple endocrine neoplasia type I (Chronic) Chronic constipation (Chronic) Depression (Chronic) Hypomagnesemia (Chronic) Hypocalcemia (Chronic) Depression (Chronic) Suicidal ideation (Acute) Elevated parathyroid hormone (Acute) Family history of coronary arteriosclerosis (Chronic) Father of MD at 50, mother had MD at 42 Severe anxiety with panic (Chronic) Cellulitis (Acute) Medical History CKD (chronic kidney disease) stage 2, GFR 60-89 ml/min GFR 64-65, with Hx FLORESITA and GFR < 45 Primary hyperparathyroidism Complex medical condition Serious electrolyte imbalances, with gynecomastia, possible MEN Dx, CKD and anemia with baseline anxiety and Hx PTSD. Hypocalcemia Anxiety Depression Hyperlipidemia Family history of multiple endocrine neoplasia, type 1 PTSD (post-traumatic stress disorder) Per pt. states no triggers at this time. Surgical History History of laparoscopic cholecystectomy (~11/2023) H/O parathyroidectomy Family History Mother Anxiety Asthma Depression Sister Anxiety Depression Father Cancer lung & stomach Depression Diabetes Hypertension MEN 1 (multiple endocrine neoplasia) Social History Smoking/Tobacco Use Status: Never Smoking risk assessment performed?: Yes Alcohol Intake: never Drug use: Current Sobriety Substance use type: former substance user Adopted: No Caregiver/Support person: No Foster care: No Household members: none Housing: apartment Number of Children: 0 Communication Needs: None Education Level: high school Do you need help understanding health information?: Never 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[employer] Pets and animals: Yes (Ally) Pets and animals: dog(s) Sexually active: No Do you think of yourself as: straight/heterosexual Current gender identity: male What is your relationship status?: How often do you talk on the phone with friends or family?: twice per week How often do you get together with friends or relatives?: never Do you belong to any clubs or organized social groups?: no Panel score (0-1 are the most socially isolated patients): 0 What type of physical activity do you participate in: walking Duration: 15-30 minutes/day Frequency: 5-6 times per week Maryam/Sabianism: Sikh Special maryam needs: No Seatbelt use: always Helmet use: Yes Helmet use: always Drive intox or ride w/intox bus driver supervisor: No Do you feel safe at home: Yes Do you feel safe in your relationship?: Yes
[2023-12-11] MEDS: Magnesium Gluconate 500 MG TAB PO (21:25)
[2023-12-11] MEDS: Calcium Carbonate 1.5 GM TAB PO (21:25)
[2023-12-11 22:14] VITALS: BP 126/83; PULSE 92; RESP 16; TEMP 36.9; O2SAT 98
== END 2023-12-11 22:14 | disposition home or self-care (01) ==
PROVIDERS: Emergency Provider Emergency Medicine; PCP Family Medicine
DX: R20.2 Paresthesia of skin (principal)
CPT/HCPCS: 93005; 99282; 93010

== ENCOUNTER 2023-12-12 11:32 | Emergency (ER) | payer MEDICAID, SELFPAY ==
[2023-12-12 11:34] VITALS: BP 150/95; PULSE 112; RESP 18; TEMP 37.2; O2SAT 98
[2023-12-12 11:43] VITALS: RESP 18
--- NOTE | 2023-12-12 11:47 | W.ED.GENAD ---
Discharge Plan Disposition Patient Disposition: Home Condition: Stable Discharge Details Clinical Impression: Superficial incisional surgical site infection Primary Care Provider: Brendon Vivar ED Provider: Richy Oakes Home Meds and New Rx's Prescriptions: New mupirocin 2 % ointment 1 applic topical TID Qty: 15 0RF sulfamethoxazole-trimethoprim 800-160 mg tablet 1 tab PO BID 7 Days Qty: 14 0RF Continued gabapentin 300 mg capsule 300 mg PO BID Qty: 180 3RF clonazepam 1 mg tablet 1 mg PO BID Qty: 56 1RF cyclobenzaprine 10 mg tablet 10 mg PO TID PRN (Reason: muscle spasm) Qty: 30 3RF methadone 10 mg/5 mL solution 105 mg PO QAM calcitriol 0.5 mcg capsule 0.5 mcg PO BID Qty: 360 3RF Hold Instructions: Resume on 06/15/22. diclofenac sodium 1 % gel 4 g topical QID Qty: 100 6RF Rx Instructions: apply to single knee, ankle, foot; for foot includes sole/toes/top of foot polyethylene glycol 3350 17 gram/dose powder 17 g PO DAILY omeprazole 40 mg capsule,delayed release(DR/EC) 40 mg PO DAILY Qty: 90 3RF famotidine 20 mg tablet 20 mg PO BID calcium carbonate [Tums] 200 mg calcium (500 mg) tablet,chewable 2,000 mg PO BID Hold Instructions: Resume on 05/12/23. Please hold your nightly dose tonight and your a.m. dose tomorrow morning. prochlorperazine maleate 5 mg tablet 5 mg PO TID PRN (Reason: acute nausea) Qty: 30 0RF ondansetron 4 mg tablet,disintegrating 4 mg PO Q8H PRN (Reason: nausea and vomiting) Qty: 20 0RF simethicone 125 mg tablet,chewable 125 mg PO QID PRN (Reason: abdominal distention) Qty: 20 0RF magnesium gluconate 27 mg magnesium (500 mg) tablet 13.5 mg PO TID Qty: 60 3RF Discharge Instructions Instructions: Sulfamethoxazole and Trimethoprim, Mupirocin, Wound Infection Additional Instructions: You were seen in the emergency department with your minor surgical site infection, this appears very superficial and there is no abscess underneath it by palpation, does not appear starkly red or warm to touch, there was a minor amount of some pus per your report. I am prescribing a topical antibiotic called mupirocin to apply 3 times per day to the area, as well as tablets of Bactrim which should help stave off any further worsening of this minor infection. Your magnesium is mildly low and you should take your magnesium supplements, these are also sold [id number], you did not require IV magnesium today. Other than that your laboratory workup is reassuring for no severe infection and your liver enzymes have normalized. Please follow-up with your regular appointment with Dr. Pulido Referrals: Brendon Vivar DO [Primary Care Provider] - Discharge Data Discharge Date/Time-TO BE ENTERED AT DEPARTURE: 12/12/23 13:48 HPI General Date/Time Provider Initiated Documentation: 12/12/23 11:46. HPI Narrative: 28 year-old male presents to ED today by POV/ambulating with a chief complaint of possible surgical site infection at recent lap cholecystectomy here on November 25- reports the R axillary surgical lap site had a small scab and some white pus, with a red border to the site noted this morning. Quality described as mildly tender- also states he knows his magnesium is low, no radiation to fever, nausea/vomiting, inability to tolerate PO intake- patient was having trouble with this at visit last week- has improved, notes no bowel/urinary abnormalities, denies chest pain/shortness of breath. Severity is described as mild. Palliating factors include nothing specific. Provoking factors include nothing specific. Patient not anticoagulated. Related Data Home Medications Medication Instructions Recorded Confirmed calcium carbonate (Tums) 2,000 mg PO BID 02/02/23 12/12/23 calcitriol 0.5 mcg capsule 0.5 mcg PO BID #360 caps 04/21/23 12/12/23 diclofenac sodium 1 % topical gel 4 g topical QID #100 grams 04/21/23 12/12/23 methadone 10 mg/5 mL oral solution 105 mg PO QAM 06/12/23 12/12/23 polyethylene glycol 3350 17 17 g PO DAILY 06/12/23 12/12/23 gram/dose oral powder gabapentin 300 mg capsule 300 mg PO BID #180 caps 06/23/23 12/12/23 omeprazole 40 mg capsule,delayed 40 mg PO DAILY #90 caps 07/21/23 12/12/23 release prochlorperazine maleate 5 mg 5 mg PO TID PRN acute nausea #30 09/06/23 12/12/23 tablet tabs ondansetron 4 mg disintegrating 4 mg PO Q8H PRN nausea and 10/30/23 12/12/23 tablet vomiting #20 tabs simethicone 125 mg chewable tablet 125 mg PO QID PRN abdominal 10/30/23 12/12/23 distention #20 tabs magnesium gluconate 27 mg 13.5 mg (1/2 x 27 mg magnesium 11/21/23 12/12/23 magnesium (500 mg) tablet (500 mg)) PO TID #60 tabs famotidine 20 mg tablet 20 mg PO BID 11/24/23 12/12/23 clonazepam 1 mg tablet 1 mg PO BID #56 tabs 12/04/23 12/12/23 cyclobenzaprine 10 mg tablet 10 mg PO TID PRN muscle spasm #30 12/04/23 12/12/23 tabs mupirocin 2 % topical ointment 1 applic topical TID #15 grams 12/12/23 sulfamethoxazole 800 1 tab PO BID 7 days #14 tabs 12/12/23 mg-trimethoprim 160 mg tablet Previous Rx's Medication Instructions Recorded calcitriol 0.5 mcg capsule 0.5 mcg PO BID #360 caps 04/21/23 diclofenac sodium 1 % topical gel 4 g topical QID #100 grams 04/21/23 gabapentin 300 mg capsule 300 mg PO BID #180 caps 06/23/23 omeprazole 40 mg capsule,delayed 40 mg PO DAILY #90 caps 07/21/23 release prochlorperazine maleate 5 mg 5 mg PO TID PRN acute nausea #30 09/06/23 tablet tabs ondansetron 4 mg disintegrating 4 mg PO Q8H PRN nausea and 10/30/23 tablet vomiting #20 tabs simethicone 125 mg chewable tablet 125 mg PO QID PRN abdominal 10/30/23 distention #20 tabs magnesium gluconate 27 mg 13.5 mg (1/2 x 27 mg magnesium 11/21/23 magnesium (500 mg) tablet (500 mg)) PO TID #60 tabs clonazepam 1 mg tablet 1 mg PO BID #56 tabs 12/04/23 cyclobenzaprine 10 mg tablet 10 mg PO TID PRN muscle spasm #30 12/04/23 tabs mupirocin 2 % topical ointment 1 applic topical TID #15 grams 12/12/23 sulfamethoxazole 800 1 tab PO BID 7 days #14 tabs 12/12/23 mg-trimethoprim 160 mg tablet Allergies Allergy/AdvReac Type Severity Reaction Status Date / Time codeine Allergy Intermediate pass out Verified 12/12/23 11:40 Penicillins Allergy Skin Rash Verified 12/12/23 11:40 amoxicillin AdvReac Intermediate Nausea Verified 12/12/23 11:40 dextromethorphan AdvReac Intermediate Other (See Verified 12/12/23 11:40 [From NyQuil] Comment) doxylamine [From NyQuil] AdvReac Intermediate Other (See Verified 12/12/23 11:40 Comment) pseudoephedrine [From NyQuil] AdvReac Intermediate Other (See Verified 12/12/23 11:40 Comment) General Stated Complaint: [facility]Medical ADRIANA: 4 Review of Systems All systems reviewed & are unremarkable except as noted in HPI and below Exam Narrative Exam Narrative: GENERAL APPEARANCE: Well-nourished, non-toxic, awake and alert, atraumatic, no acute distress. SKIN: Warm, pink, dry, right 0.5cm axillary lap site has a mild erythematous border is slightly open with some purulent biofilm and scab, no molina spreading erythema or fluctuance, no abdominal tenderness. HEAD: Normocephalic, atraumatic, normal hair distribution for gender/age. EYES: Pupils PERRLA, EOMs intact without nystagmus, normal conjunctiva, no exudates on lids/lashes. ENT: Nares patent, no circumoral cyanosis, no facial swelling NECK: Supple, trachea midline, painless cervical ROM. LUNGS/CHEST: Non-labored respirations, normal A/P diameter, symmetrical expansion, no chest wall deformity HEART (CV/PV): No peripheral edema, no JVD. ABDOMEN: Soft, non-distended, no guarding, no tenderness. MSK: Normal ROM, no swelling/deformity to bilateral UEs or LEs, moving all extremities without weakness, no cyanosis, spine midline without tenderness, normal curvature. NEURO: Mental Status AAOx4 - alert to person, place, time, events No facial droop, no forehead involvement. Motor: No focal weakness - strength 5/5 in bilateral UEs and LEs, proximal and distal, symmetric. Sensory: sensation intact to light touch globally. Gait normal: patient ambulated without ataxia into ED room. PSYCH: euthymic, cooperative, pleasant, appropriate speech Course Vital Signs Vital signs: Vital Signs Temperature 37.2 C 12/12/23 11:34 Pulse 112 H 12/12/23 11:34 Respiratory Rate 18 12/12/23 11:34 Blood Pressure 150/95 H 12/12/23 11:34 Pulse Oximetry 98 12/12/23 11:34 Temperature 37.2 C 12/12/23 11:34 Temperature Source Temporal Artery Scan 12/12/23 11:34 Pulse 112 H 12/12/23 11:34 Respiratory Rate 18 12/12/23 11:34 Respiratory Effort Normal, Non-Labored 12/12/23 11:40 Blood Pressure 150/95 H 12/12/23 11:34 Blood Pressure Position Sitting 12/12/23 11:34 Pulse Oximetry 98 12/12/23 11:34 Oxygen Delivery Method Room Air 12/12/23 11:34 Oxygen Flow Rate 0 12/12/23 11:34 Pain Level 4 12/12/23 11:34 Medical Decision Making This dictation utilizes [id number] dictation software and may contain unedited grammatical errors. 28 year-old male presents to ED today by POV/ambulating with a chief complaint of possible surgical site infection at recent lap cholecystectomy here on November 25- reports the R axillary surgical lap site had a small scab and some white pus, with a red border to the site noted this morning. Quality described as mildly tender- also states he knows his magnesium is low, no radiation to fever, nausea/vomiting, inability to tolerate PO intake- patient was having trouble with this at visit last week- has improved, notes no bowel/urinary abnormalities, denies chest pain/shortness of breath. Severity is described as mild. Palliating factors include nothing specific. Provoking factors include nothing specific. Patients' medical history: Relevant history includes recent cholecystectomy, sphincter of Oddi dysfunction, complex medical history well-known to the ED. Family and social history: Noncontributory. Pertinent exam findings / vital signs include right 0.5cm axillary lap site has a mild erythematous border is slightly open with some purulent biofilm and scab, no molina spreading erythema or fluctuance, no abdominal tenderness. Differential / pathologies of concern include [ ]. Diagnostic studies of: -CBC, BMP, Lipase, Magnesium, LFTs, Lactate. -no leukocytosis -BMP - mildly low Ca++ -Lipase wnl -LFTs improved from prior -Magnesium 1.6 > has supplements Rx Interventions of: -None. ED Course/Assessment/Plan: 28-year-old male well-known to the ED presents for possible surgical site infection, he appears to have a mild wound infection of the lab site is partially open, not draining actively, no signs of abscess underneath and he is nontoxic overall with a negative workup for sepsis. I did prescribe him mupirocin and Bactrim to stave off any further worsening of his infection. Patient verbalized understanding the plan and return to ED criteria. I counseled him on mildly low magnesium he has supplements at home, I did inform him of his improved LFTs. Findings not consistent with sepsis, severe surgical site infection, abscess. Disposition of Superficial incisional surgical site infection. Patient verbalized understanding of the plan and return to ED criteria and engaged in shared decision making. Medical Records Medical records reviewed: Yes I reviewed the patient's medical records. Lab Data Lab results reviewed: Yes I reviewed the patient's lab results. Labs: Laboratory Tests Range/Units 12/12/23 12:34 WBC (4.4-10.8) 10^3/uL 6.09 RBC (4.36-5.78) 10^6/uL 4.02 L Hgb (13.5-17.5) g/dL 11.5 L Hct (40.0-50.0) % 35.0 L MCV (80-95) fL 87 MCH (27.0-33.0) pg 28.6 MCHC (32.0-36.0) % 32.9 RDW (11.8-14.1) % 13.2 Plt Count (130-400) 10^3/uL 318 MPV (8.0-11.0) fL 9.8 Immature Gran % % 0.3 Neutrophils % % 65.7 Lymphocytes % % 22.0 Monocytes % % 9.0 Eosinophils % % 2.3 Basophils % % 0.7 Nucleated RBC % (0.0-0.3) % 0.0 Absolute Neutrophils (1.2-6.7) 10^3/uL 4.00 Absolute Lymphocytes (1.2-3.4) 10^3/uL 1.34 Absolute Monocytes (0.1-0.8) 10^3/uL 0.55 Absolute Eosinophils (0.0-0.7) 10^3/uL 0.14 Absolute Basophils (0.0-0.2) 10^3/uL 0.04 VBG Lactate (0.6-1.4) mmol/L 0.9 Sodium (136-145) mmol/L 140 Potassium (3.5-5.1) mmol/L 3.7 Chloride (98-107) mmol/L 102 Carbon Dioxide (21.0-32.0) mmol/L 34.4 H Anion Gap (3-11) mmol/L 3.6 BUN (7-18) mg/dL 20 H Creatinine (0.70-1.30) mg/dL 1.3 Est GFR (CKD-EPI 2020) (mL/min/1.73m2) 75.79 Glucose (74-106) mg/dL 88 Calcium (8.5-10.1) mg/dL 8.2 L Magnesium (1.8-2.4) mg/dL 1.6 L Total Bilirubin (0.2-1.0) mg/dL 0.22 Conjugated Bilirubin (0.0-0.2) mg/dL 0.1 AST (15-37) U/L 28 ALT (16-63) U/L 64 H Alkaline Phosphatase (46-116) U/L 180 H Total Protein (6.4-8.2) g/dL 7.5 Albumin (3.4-5.0) g/dL 3.1 L Lipase (16-77) U/L 26 Quality:SDOH Health Related Social Needs: Health related social needs transpo insecurity PFSH All Active Problems (Updated 12/12/23 @ 13:28 by ANDREW Coleman) Superficial incisional surgical site infection (Acute) Paresthesia (Acute) Abdominal pain (Acute) Leg pain (Acute) Chest pain (Acute) Transaminitis (Acute) Encounter for postoperative wound check (Acute) Hypomagnesemia (Acute) Anxiety (Chronic) Anxiety (Chronic) Hypomagnesemia (Acute) Elevated TSH (Acute) Congestion of upper respiratory tract (Acute) Bronchitis (Acute) 10/08/2023 - Dx @ 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 ED Left arm numbness (Acute) Gynecomastia, male (Acute) b/l, per CT (Jul 2022).. Possible 2' Methadone, Clnzpm (?). Surg eval (+)/No further action. History of electrolyte imbalance (Acute) Neck pain on left side (Acute) with shoulder, upper back pain.. torticollis, radiating into left hip/leg Pulmonary nodule 1 cm or greater in diameter (Chronic) Therapeutic opioid induced constipation (Acute) Sphincter of Oddi dysfunction (Chronic) Abnormal CT scan, kidney (Acute) Intrahepatic bile duct dilation (Acute) Common bile duct dilatation (Chronic) Has been dilated for quite some time, now more-so. Normal LFTs. Known gallstones. Abdominal pain (Acute) Iatrogenic hypocalcemia (Acute) Multiple endocrine neoplasia type I (Chronic) Chronic constipation (Chronic) Depression (Chronic) Hypomagnesemia (Chronic) Hypocalcemia (Chronic) Depression (Chronic) Suicidal ideation (Acute) Elevated parathyroid hormone (Acute) Family history of coronary arteriosclerosis (Chronic) Father of AK at 50, mother had AK at 42 Severe anxiety with panic (Chronic) Cellulitis (Acute) Medical History CKD (chronic kidney disease) stage 2, GFR 60-89 ml/min GFR 64-65, with Hx FLORESITA and GFR < 45 Primary hyperparathyroidism Complex medical condition Serious electrolyte imbalances, with gynecomastia, possible MEN Dx, CKD and anemia with baseline anxiety and Hx PTSD. Hypocalcemia Anxiety Depression Hyperlipidemia Family history of multiple endocrine neoplasia, type 1 PTSD (post-traumatic stress disorder) Per pt. states no triggers at this time. Surgical History History of laparoscopic cholecystectomy (~11/2023) H/O parathyroidectomy Family History Mother Anxiety Asthma Depression Sister Anxiety Depression Father Cancer lung & stomach Depression Diabetes Hypertension MEN 1 (multiple endocrine neoplasia) Social History Smoking/Tobacco Use Status: Never Smoking risk assessment performed?: Yes Alcohol Intake: never Drug use: Current Sobriety Substance use type: former substance user Adopted: No Caregiver/Support person: No Foster care: No Household members: none Housing: apartment Number of Children: 0 Communication Needs: None Education Level: high school Do you need help understanding health information?: Never current occupation: [employer] Pets and animals: Yes (Ally) Pets and animals: dog(s) Sexually active: No Do you think of yourself as: straight/heterosexual Current gender identity: male What is your relationship status?: How often do you talk on the phone with friends or family?: twice per week How often do you get together with friends or relatives?: never Do you belong to any clubs or organized social groups?: no Panel score (0-1 are the most socially isolated patients): 0 What type of physical activity do you participate in: walking Duration: 15-30 minutes/day Frequency: 5-6 times per week Maryam/Catholic: Orthodoxy Special maryam needs: No Seatbelt use: always Helmet use: Yes Helmet use: always Drive intox or ride w/intox driver utility worker: No Do you feel safe at home: Yes Do you feel safe in your relationship?: Yes
[2023-12-12 12:40] LABS: Lactate 0.9 mmol/L (0.6-1.4)
[2023-12-12 12:42] LABS: Abs Immature Grans 0.02 10^3/uL (0.0-0.06); Absolute Basophil Count 0.04 10^3/uL (0.0-0.2); Absolute Eosinophil Count 0.14 10^3/uL (0.0-0.7); Absolute Lymphocyte Count 1.34 10^3/uL (1.2-3.4); Absolute Monocyte Count 0.55 10^3/uL (0.1-0.8); Basophils % 0.7 %; Eosinophils % 2.3 %; HGB 11.5 g/dL (13.5-17.5); Immature Grans % 0.3 %; MCH 28.6 pg (27.0-33.0); MCHC 32.9 % (32.0-36.0); MCV 87 fL (80-95); MPV 9.8 fL (8.0-11.0); Neutrophils % 65.7 %; Platelet Count 318 10^3/uL (130-400); RBC 4.02 10^6/uL (4.36-5.78); RDW 13.2 % (11.8-14.1); RDW-SD 42.1 fL; WBC 6.09 10^3/uL (4.4-10.8)
[2023-12-12 12:57] LABS: ALT 64 U/L (16-63); AST 28 U/L (15-37); Albumin 3.1 g/dL (3.4-5.0); Alkaline Phosphatase 180 U/L (46-116); Anion Gap 3.6 mmol/L (3-11); BUN 20 mg/dL (7-18); Bilirubin, Direct 0.1 mg/dL (0.0-0.2); Bilirubin, Total 0.22 mg/dL (0.2-1.0); CO2 34.4 mmol/L (21.0-32.0); CREATININE 1.3 mg/dL (0.70-1.30); Calcium 8.2 mg/dL (8.5-10.1); Chloride 102 mmol/L (98-107); Estimated GFR 75.79 (mL/min/1.73m2); Glucose 88 mg/dL (74-106); Lipase 26 U/L (16-77); Magnesium 1.6 mg/dL (1.8-2.4); Potassium 3.7 mmol/L (3.5-5.1); Sodium 140 mmol/L (136-145); Total Protein 7.5 g/dL (6.4-8.2)
== END 2023-12-12 13:48 | disposition home or self-care (01) ==
PROVIDERS: Emergency Provider Physician Assistant; PCP Family Medicine
DX: R10.30 Lower abdominal pain, unspecified (principal); T81.41XA Infection following a procedure, superficial incisional surgical site, initial encounter
CPT/HCPCS: 36415; 80048; 80076; 83690; 99283; 83605; 83735; 85025

== ENCOUNTER 2023-12-15 10:26 | Emergency (ER) | payer MEDICAID, SELFPAY ==
[2023-12-15] VITALS (15 sets, daily range): BP systolic 116–141; BP diastolic 65–93; PULSE 84–125; RESP 16–20; TEMP 36.6; O2SAT 96–100
[2023-12-15] MEDS: Ondansetron O.D.T. 4 MG TABEF (11:40)
--- NOTE | 2023-12-15 12:21 | NUR.NOTE ---
Nursing Note: patient ate 2 pkg of crackers says he feels fine after eating.
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
== END 2023-12-15 12:33 | disposition home or self-care (01) ==
PROVIDERS: Emergency Provider Emergency Medicine; PCP Family Medicine
DX: R11.2 Nausea with vomiting, unspecified (principal)
CPT/HCPCS: 99283; 99282

== ENCOUNTER 2023-12-16 04:21 | Emergency (ER) | payer OTHER, SELFPAY ==
[2023-12-16] VITALS (21 sets, daily range): BP systolic 110–131; BP diastolic 75–85; PULSE 69–102; RESP 10–16; TEMP 36.3; O2SAT 90–96
--- NOTE | 2023-12-16 04:32 | W.ED.GENAD ---
Discharge Plan Disposition Patient Disposition: Home Condition: Good Discharge Details Clinical Impression: Paresthesia, Hypomagnesemia Primary Care Provider: Brendon Vivar ED Provider: Santiago Ibarra Meds and New Rx's Prescriptions: Continued gabapentin 300 mg capsule 300 mg PO BID Qty: 180 3RF clonazepam 1 mg tablet 1 mg PO BID Qty: 56 1RF cyclobenzaprine 10 mg tablet 10 mg PO TID PRN (Reason: muscle spasm) Qty: 30 3RF methadone 10 mg/5 mL solution 105 mg PO QAM calcitriol 0.5 mcg capsule 0.5 mcg PO BID Qty: 360 3RF Hold Instructions: Resume on 06/15/22. polyethylene glycol 3350 17 gram/dose powder 17 g PO DAILY PRN omeprazole 40 mg capsule,delayed release(DR/EC) 40 mg PO DAILY Qty: 90 3RF famotidine 20 mg tablet 20 mg PO BID calcium carbonate [Tums] 200 mg calcium (500 mg) tablet,chewable 2,000 mg PO BID Hold Instructions: Resume on 05/12/23. Please hold your nightly dose tonight and your a.m. dose tomorrow morning. prochlorperazine maleate 5 mg tablet 5 mg PO TID PRN (Reason: acute nausea) Qty: 30 0RF mupirocin 2 % ointment 1 applic topical TID Qty: 15 0RF sulfamethoxazole-trimethoprim 800-160 mg tablet 1 tab PO BID 7 Days Qty: 14 0RF diclofenac sodium 1 % gel 4 g topical QID PRN Rx Instructions: apply to single knee, ankle, foot; for foot includes sole/toes/top of foot ondansetron 4 mg tablet,disintegrating 4 mg PO Q6H PRN (Reason: nausea and vomiting) Qty: 20 0RF simethicone 125 mg tablet,chewable 125 mg PO QID PRN (Reason: abdominal distention) Qty: 20 0RF magnesium gluconate 27 mg magnesium (500 mg) tablet 13.5 mg PO TID Qty: 60 3RF Discharge Instructions Additional Instructions: You were seen for recurrent paresthesia. Your magnesium and calcium were low normal to low and you received IV infusions of both. Continue your supplements and follow-up with primary care. Return to ED for any syncope, neurologic change, other concerns. HPI General Mode of arrival: ambulatory. Date/Time Provider Initiated Documentation: 12/16/23 04:28. Limitations to Documentation: no limitations. Information obtained by: patient. HPI Narrative: Patient presenting to ED with complaint of paresthesias involving face, hands, feet similar to previous episodes of low calcium or low magnesium. He has a history of both. He has been taking 3 g of calcium twice a day and 750 of magnesium twice a day. He denies any syncope, chest pain, shortness of breath, vomiting, diarrhea, abdominal pain. Related Data Home Medications Medication Instructions Recorded Confirmed calcium carbonate (Tums) 2,000 mg PO BID 02/02/23 12/16/23 calcitriol 0.5 mcg capsule 0.5 mcg PO BID #360 caps 04/21/23 12/16/23 methadone 10 mg/5 mL oral solution 105 mg PO QAM 06/12/23 12/16/23 polyethylene glycol 3350 17 17 g PO DAILY PRN 06/12/23 12/16/23 gram/dose oral powder gabapentin 300 mg capsule 300 mg PO BID #180 caps 06/23/23 12/16/23 omeprazole 40 mg capsule,delayed 40 mg PO DAILY #90 caps 07/21/23 12/16/23 release prochlorperazine maleate 5 mg 5 mg PO TID PRN acute nausea #30 09/06/23 12/16/23 tablet tabs simethicone 125 mg chewable tablet 125 mg PO QID PRN abdominal 10/30/23 12/16/23 distention #20 tabs magnesium gluconate 27 mg 13.5 mg (1/2 x 27 mg magnesium 11/21/23 12/16/23 magnesium (500 mg) tablet (500 mg)) PO TID #60 tabs famotidine 20 mg tablet 20 mg PO BID 11/24/23 12/16/23 clonazepam 1 mg tablet 1 mg PO BID #56 tabs 12/04/23 12/16/23 cyclobenzaprine 10 mg tablet 10 mg PO TID PRN muscle spasm #30 12/04/23 12/16/23 tabs mupirocin 2 % topical ointment 1 applic topical TID #15 grams 12/12/23 12/16/23 sulfamethoxazole 800 1 tab PO BID 7 days #14 tabs 12/12/23 12/16/23 mg-trimethoprim 160 mg tablet diclofenac sodium 1 % topical gel 4 g topical QID PRN 12/15/23 12/16/23 ondansetron 4 mg disintegrating 4 mg PO Q6H PRN nausea and 12/15/23 12/16/23 tablet vomiting #20 tabs Previous Rx's Medication Instructions Recorded calcitriol 0.5 mcg capsule 0.5 mcg PO BID #360 caps 04/21/23 gabapentin 300 mg capsule 300 mg PO BID #180 caps 06/23/23 omeprazole 40 mg capsule,delayed 40 mg PO DAILY #90 caps 07/21/23 release prochlorperazine maleate 5 mg 5 mg PO TID PRN acute nausea #30 09/06/23 tablet tabs simethicone 125 mg chewable tablet 125 mg PO QID PRN abdominal 10/30/23 distention #20 tabs magnesium gluconate 27 mg 13.5 mg (1/2 x 27 mg magnesium 11/21/23 magnesium (500 mg) tablet (500 mg)) PO TID #60 tabs clonazepam 1 mg tablet 1 mg PO BID #56 tabs 12/04/23 cyclobenzaprine 10 mg tablet 10 mg PO TID PRN muscle spasm #30 12/04/23 tabs mupirocin 2 % topical ointment 1 applic topical TID #15 grams 12/12/23 sulfamethoxazole 800 1 tab PO BID 7 days #14 tabs 12/12/23 mg-trimethoprim 160 mg tablet ondansetron 4 mg disintegrating 4 mg PO Q6H PRN nausea and 12/15/23 tablet vomiting #20 tabs Allergies Allergy/AdvReac Type Severity Reaction Status Date / Time codeine Allergy Intermediate pass out Verified 12/16/23 04:27 Penicillins Allergy Skin Rash Verified 12/16/23 04:27 amoxicillin AdvReac Intermediate Nausea Verified 12/16/23 04:27 dextromethorphan AdvReac Intermediate Other (See Verified 12/16/23 04:27 [From NyQuil] Comment) doxylamine [From NyQuil] AdvReac Intermediate Other (See Verified 12/16/23 04:27 Comment) pseudoephedrine [From NyQuil] AdvReac Intermediate Other (See Verified 12/16/23 04:27 Comment) General Stated Complaint: GenMedical ADRIANA: 3 Review of Systems Narrative: Per HPI Exam Narrative Exam Narrative: Const: WDWN male in NAD. VS per triage. HEENT: NC/AT. Normal facial exam. Neck: Supple. Trachea midline. Lungs: Normal respiratory effort. Lungs are clear. Cor: RRR without murmur. Neuro: A+O x 3. Normal speech, mentation, gait. Cranial nerves II - XII grossly intact. No gross motor or sensory deficit. Course Vital Signs Vital signs: Vital Signs Temperature 97.3 F L 12/16/23 04:25 Pulse 102 H 12/16/23 04:25 Respiratory Rate 16 12/16/23 04:25 Blood Pressure 131/85 12/16/23 04:25 Pulse Oximetry 95 12/16/23 04:25 Temperature 97.3 F L 12/16/23 04:25 Temperature Source Temporal Artery Scan 12/16/23 04:25 Pulse 102 H 12/16/23 04:25 Respiratory Rate 16 12/16/23 04:30 Respiratory Effort Normal, Non-Labored 12/16/23 04:30 Respiratory Depth Normal 12/16/23 04:30 Respiratory Pattern Normal 12/16/23 04:30 Blood Pressure 131/85 12/16/23 04:25 Blood Pressure Position Sitting 12/16/23 04:25 Pulse Oximetry 95 12/16/23 04:25 Oxygen Delivery Method Room Air 12/16/23 04:25 Oxygen Flow Rate 0 12/16/23 04:25 Pain Level 3 12/16/23 04:25 Comment headache 12/16/23 04:25 Medical Decision Making Patient presenting to ED with complaint of paresthesias similar to previous episodes of low calcium and/or low magnesium. He has been taking his supplements as prescribed. He has actually been taking more calcium than prescribed. He has no other complaints currently. IV is placed and BMP, magnesium labs sent. Patient's calcium is lower limits of normal, magnesium just below normal. Given that he is symptomatic have ordered 1 g of calcium and 2 g of magnesium to be given IV and then plan on discharge. Discussed with patient. He is agreeable with the plan. Lab Data Lab results reviewed: Yes I reviewed the patient's lab results. Quality:SDOH Health Related Social Needs: Health related social needs transpo insecurity PFSH All Active Problems (Updated 12/16/23 @ 06:24 by Santiago Ibarra MD) Superficial incisional surgical site infection (Acute) Paresthesia (Acute) Transaminitis (Acute) Encounter for postoperative wound check (Acute) Hypomagnesemia (Acute) Anxiety (Chronic) Elevated TSH (Acute) Testicle lump (Acute) Hamstring tendinitis of left thigh (Acute) Pes anserine bursitis (Acute) Hypernatremia (Acute) Cervical radiculopathy (Acute) Left-sided Flower's palsy (Acute) Constipation (Acute) Grief reaction (Chronic) Opiate dependence, continuous (Acute) 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 Possible 2' Methadone, Clnzpm (?). Surg eval (+)/No further action. History of electrolyte imbalance (Acute) Neck pain on left side (Acute) with shoulder, upper back pain.. torticollis, radiating into left hip/leg Pulmonary nodule 1 cm or greater in diameter (Chronic) Therapeutic opioid induced constipation (Acute) Sphincter of Oddi dysfunction (Chronic) Abnormal CT scan, kidney (Acute) Intrahepatic bile duct dilation (Acute) Common bile duct dilatation (Chronic) Has been dilated for quite some time, now more-so. Normal LFTs. Known gallstones. Iatrogenic hypocalcemia (Acute) Multiple endocrine neoplasia type I (Chronic) Depression (Chronic) Hypocalcemia (Chronic) Elevated parathyroid hormone (Acute) Family history of coronary arteriosclerosis (Chronic) Father of OH at 50, mother had OH at 42 Severe anxiety with panic (Chronic) Medical History CKD (chronic kidney disease) stage 2, GFR 60-89 ml/min GFR 64-65, with Hx FLORESITA and GFR < 45 Primary hyperparathyroidism Complex medical condition Serious electrolyte imbalances, with gynecomastia, possible MEN Dx, CKD and anemia with baseline anxiety and Hx PTSD. Hypocalcemia Anxiety Depression Hyperlipidemia Family history of multiple endocrine neoplasia, type 1 PTSD (post-traumatic stress disorder) Per pt. states no triggers at this time. Surgical History History of laparoscopic cholecystectomy (~11/2023) H/O parathyroidectomy Family History Mother Anxiety Asthma Depression Sister Anxiety Depression Father Cancer lung & stomach Depression Diabetes Hypertension MEN 1 (multiple endocrine neoplasia) Social History Smoking/Tobacco Use Status: Never Smoking risk assessment performed?: Yes Alcohol Intake: never Drug use: Current Sobriety Substance use type: former substance user Adopted: No Caregiver/Support person: No Foster care: No Household members: none Housing: apartment Number of Children: 0 Communication Needs: None Education Level: high school Do you need help understanding health information?: Never 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[employer] Pets and animals: Yes (Ally) Pets and animals: dog(s) Sexually active: No Do you think of yourself as: straight/heterosexual Current gender identity: male What is your relationship status?: How often do you talk on the phone with friends or family?: twice per week How often do you get together with friends or relatives?: never Do you belong to any clubs or organized social groups?: no Panel score (0-1 are the most socially isolated patients): 0 What type of physical activity do you participate in: walking Duration: 15-30 minutes/day Frequency: 5-6 times per week Maryam/Orthodoxy: Congregational Special maryam needs: No Seatbelt use: always Helmet use: Yes Helmet use: always 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
[2023-12-16 04:49] LABS: Anion Gap 4.2 mmol/L (3-11); BUN 20 mg/dL (7-18); CO2 36.8 mmol/L (21.0-32.0); CREATININE 1.3 mg/dL (0.70-1.30); Calcium 8.5 mg/dL (8.5-10.1); Chloride 100 mmol/L (98-107); Estimated GFR 75.79 (mL/min/1.73m2); Glucose 99 mg/dL (74-106); Magnesium 1.7 mg/dL (1.8-2.4); Potassium 3.7 mmol/L (3.5-5.1); Sodium 141 mmol/L (136-145)
[2023-12-16] MEDS: MAGNESIUM SULFATE 2 GM/50 ML BAG IVINF (05:05)
[2023-12-16] MEDS: Calcium Gluconate 4.65 MEQ/10 ML VIAL 4.65 MG IVP (05:17)
[2023-12-16] MEDS: Normal Saline 100 ML 400 ML (05:19)
== END 2023-12-16 06:54 | disposition home or self-care (01) ==
PROVIDERS: Emergency Provider Emergency Medicine; PCP Family Medicine
DX: R20.2 Paresthesia of skin (principal); E83.42 Hypomagnesemia
CPT/HCPCS: 36415; 80048; 96365; 96366; 96375; 99284; 83735; J0612; J3475

== ENCOUNTER 2023-12-21 08:22 | Emergency (ER) | payer OTHER, SELFPAY ==
[2023-12-21 08:25] VITALS: BP 155/74; PULSE 117; RESP 16; TEMP 36.9; O2SAT 96
--- NOTE | 2023-12-21 08:40 | ED.GENADUL_ITS ---
Discharge Plan Disposition Patient Disposition: Home Discharge Details Clinical Impression: Insect bite of leg, right Primary Care Provider: Brendon Vivar ED Provider: Luh Tsai Home Meds and New Rx's Prescriptions: Continued gabapentin 300 mg capsule 300 mg PO BID Qty: 180 3RF clonazepam 1 mg tablet 1 mg PO BID Qty: 56 1RF cyclobenzaprine 10 mg tablet 10 mg PO TID PRN (Reason: muscle spasm) Qty: 30 3RF methadone 10 mg/5 mL solution 105 mg PO QAM calcitriol 0.5 mcg capsule 0.5 mcg PO BID Qty: 360 3RF Hold Instructions: Resume on 06/15/22. polyethylene glycol 3350 17 gram/dose powder 17 g PO DAILY PRN omeprazole 40 mg capsule,delayed release(DR/EC) 40 mg PO DAILY Qty: 90 3RF famotidine 20 mg tablet 20 mg PO BID calcium carbonate [Tums] 200 mg calcium (500 mg) tablet,chewable 2,000 mg PO BID Hold Instructions: Resume on 05/12/23. Please hold your nightly dose tonight and your a.m. dose tomorrow morning. prochlorperazine maleate 5 mg tablet 5 mg PO TID PRN (Reason: acute nausea) Qty: 30 0RF mupirocin 2 % ointment 1 applic topical TID Qty: 15 0RF diclofenac sodium 1 % gel 4 g topical QID PRN Rx Instructions: apply to single knee, ankle, foot; for foot includes sole/toes/top of foot ondansetron 4 mg tablet,disintegrating 4 mg PO Q6H PRN (Reason: nausea and vomiting) Qty: 20 0RF simethicone 125 mg tablet,chewable 125 mg PO QID PRN (Reason: abdominal distention) Qty: 20 0RF magnesium gluconate 27 mg magnesium (500 mg) tablet 13.5 mg PO TID Qty: 60 3RF Discharge Instructions Instructions: Insect Bites and Stings ED Additional Instructions: Apply hydrocortisone and Benadryl topically as needed Keep wounds clean and dry Should he have worsening symptoms in the morning, check for bedbugs Referrals: Brendon Vivar DO [Primary Care Provider] - HPI General Date/Time Provider Initiated Documentation: 12/21/23 08:31 . HPI Narrative: This 28-year-old male presents with rash to right lower extremity. Patient states he woke up with a rash this morning. Denies known bedbugs or fleas in his home. States that are slightly itchy. Denies any additional complaints. Related Data Home Medications Medication Instructions Recorded Confirmed calcium carbonate (Tums) 2,000 mg PO BID 02/02/23 12/21/23 calcitriol 0.5 mcg capsule 0.5 mcg PO BID #360 caps 04/21/23 12/21/23 methadone 10 mg/5 mL oral solution 105 mg PO QAM 06/12/23 12/21/23 polyethylene glycol 3350 17 17 g PO DAILY PRN 06/12/23 12/21/23 gram/dose oral powder gabapentin 300 mg capsule 300 mg PO BID #180 caps 06/23/23 12/21/23 omeprazole 40 mg capsule,delayed 40 mg PO DAILY #90 caps 07/21/23 12/21/23 release prochlorperazine maleate 5 mg 5 mg PO TID PRN acute nausea #30 09/06/23 12/21/23 tablet tabs simethicone 125 mg chewable tablet 125 mg PO QID PRN abdominal 10/30/23 12/21/23 distention #20 tabs magnesium gluconate 27 mg 13.5 mg (1/2 x 27 mg magnesium 11/21/23 12/21/23 magnesium (500 mg) tablet (500 mg)) PO TID #60 tabs famotidine 20 mg tablet 20 mg PO BID 11/24/23 12/21/23 clonazepam 1 mg tablet 1 mg PO BID #56 tabs 12/04/23 12/21/23 cyclobenzaprine 10 mg tablet 10 mg PO TID PRN muscle spasm #30 12/04/23 12/21/23 tabs mupirocin 2 % topical ointment 1 applic topical TID #15 grams 12/12/23 12/21/23 diclofenac sodium 1 % topical gel 4 g topical QID PRN 12/15/23 12/21/23 ondansetron 4 mg disintegrating 4 mg PO Q6H PRN nausea and 12/15/23 12/21/23 tablet vomiting #20 tabs Previous Rx's Medication Instructions Recorded calcitriol 0.5 mcg capsule 0.5 mcg PO BID #360 caps 04/21/23 gabapentin 300 mg capsule 300 mg PO BID #180 caps 06/23/23 omeprazole 40 mg capsule,delayed 40 mg PO DAILY #90 caps 07/21/23 release prochlorperazine maleate 5 mg 5 mg PO TID PRN acute nausea #30 09/06/23 tablet tabs simethicone 125 mg chewable tablet 125 mg PO QID PRN abdominal 10/30/23 distention #20 tabs magnesium gluconate 27 mg 13.5 mg (1/2 x 27 mg magnesium 11/21/23 magnesium (500 mg) tablet (500 mg)) PO TID #60 tabs clonazepam 1 mg tablet 1 mg PO BID #56 tabs 12/04/23 cyclobenzaprine 10 mg tablet 10 mg PO TID PRN muscle spasm #30 12/04/23 tabs mupirocin 2 % topical ointment 1 applic topical TID #15 grams 12/12/23 ondansetron 4 mg disintegrating 4 mg PO Q6H PRN nausea and 12/15/23 tablet vomiting #20 tabs Allergies Allergy/AdvReac Type Severity Reaction Status Date / Time codeine Allergy Intermediate pass out Verified 12/21/23 08:28 Penicillins Allergy Skin Rash Verified 12/21/23 08:28 amoxicillin AdvReac Intermediate Nausea Verified 12/21/23 08:28 dextromethorphan AdvReac Intermediate Other (See Verified 12/21/23 08:28 [From NyQuil] Comment) doxylamine [From NyQuil] AdvReac Intermediate Other (See Verified 12/21/23 08:28 Comment) pseudoephedrine [From NyQuil] AdvReac Intermediate Other (See Verified 12/21/23 08:28 Comment) General Stated Complaint: RashLesion ADRIANA: 4 Exam Narrative Exam Narrative: 3 papular lesions noted to right distal thigh and 1 right palmar lesion with 1 anterior forearm lesion Course Vital Signs Vital signs: Vital Signs Temperature 36.9 C 12/21/23 08:25 Pulse 117 H 12/21/23 08:25 Respiratory Rate 16 12/21/23 08:25 Blood Pressure 155/74 H 12/21/23 08:25 Pulse Oximetry 96 12/21/23 08:25 Temperature 36.9 C 12/21/23 08:25 Temperature Source Temporal Artery Scan 12/21/23 08:25 Pulse 117 H 12/21/23 08:25 Respiratory Rate 16 12/21/23 08:25 Respiratory Effort Normal, Non-Labored 12/21/23 08:29 Blood Pressure 155/74 H 12/21/23 08:25 Blood Pressure Position Sitting 12/21/23 08:25 Pulse Oximetry 96 12/21/23 08:25 Oxygen Delivery Method Room Air 12/21/23 08:25 Oxygen Flow Rate 0 12/21/23 08:25 Pain Level 0 12/21/23 08:25 Medical Decision Making Patient denies any known risk of fleas or bedbugs, however he was encouraged to purchase some white sheets for thorough assessment for bedbugs Tylenol advised supportive care with topical Benadryl and hydrocortisone Will keep wounds clean and dry, return precautions reviewed and patient expressed understanding Quality:SDOH Health Related Social Needs: Health related social needs transpo insecurity PFSH All Active Problems (Updated 12/21/23 @ 08:50 by ANDREW Arriaga) Insect bite of leg, right (Acute) Superficial incisional surgical site infection (Acute) Paresthesia (Acute) Transaminitis (Acute) Encounter for postoperative wound check (Acute) Hypomagnesemia (Acute) Testicle lump (Acute) Hamstring tendinitis of left thigh (Acute) Pes anserine bursitis (Acute) Hypernatremia (Acute) Cervical radiculopathy (Acute) Left-sided Flower's palsy (Acute) Constipation (Acute) Grief reaction (Chronic) Opiate dependence, continuous (Acute) 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 Possible 2' Methadone, Clnzpm (?). Surg eval (+)/No further action. History of electrolyte imbalance (Acute) Neck pain on left side (Acute) with shoulder, upper back pain.. torticollis, radiating into left hip/leg Pulmonary nodule 1 cm or greater in diameter (Chronic) Therapeutic opioid induced constipation (Acute) Sphincter of Oddi dysfunction (Chronic) Abnormal CT scan, kidney (Acute) Intrahepatic bile duct dilation (Acute) Common bile duct dilatation (Chronic) Has been dilated for quite some time, now more-so. Normal LFTs. Known gallstones. Iatrogenic hypocalcemia (Acute) Multiple endocrine neoplasia type I (Chronic) Depression (Chronic) Hypocalcemia (Chronic) Elevated parathyroid hormone (Acute) Family history of coronary arteriosclerosis (Chronic) Father of ID at 50, mother had ID at 42 Severe anxiety with panic (Chronic) Medical History CKD (chronic kidney disease) stage 2, GFR 60-89 ml/min GFR 64-65, with Hx FLORESITA and GFR < 45 Primary hyperparathyroidism Complex medical condition Serious electrolyte imbalances, with gynecomastia, possible MEN Dx, CKD and anemia with baseline anxiety and Hx PTSD. Hypocalcemia Anxiety Depression Hyperlipidemia Family history of multiple endocrine neoplasia, type 1 PTSD (post-traumatic stress disorder) Per pt. states no triggers at this time. Surgical History History of laparoscopic cholecystectomy (~11/2023) H/O parathyroidectomy Family History Mother Anxiety Asthma Depression Sister Anxiety Depression Father Cancer lung & stomach Depression Diabetes Hypertension MEN 1 (multiple endocrine neoplasia) Social History Smoking/Tobacco Use Status: Never Smoking risk assessment performed?: Yes Alcohol Intake: never Drug use: Current Sobriety Substance use type: former substance user Adopted: No Caregiver/Support person: No Foster care: No Household members: none Housing: apartment Number of Children: 0 Communication Needs: None Education Level: high school Do you need help understanding health information?: Never 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[employer] Pets and animals: Yes (Ally) Pets and animals: dog(s) Sexually active: No Do you think of yourself as: straight/heterosexual Current gender identity: male What is your relationship status?: How often do you talk on the phone with friends or family?: twice per week How often do you get together with friends or relatives?: never Do you belong to any clubs or organized social groups?: no Panel score (0-1 are the most socially isolated patients): 0 What type of physical activity do you participate in: walking Duration: 15-30 minutes/day Frequency: 5-6 times per week Maryam/Catholic: Christianity Special maryam needs: No Seatbelt use: always Helmet use: Yes Helmet use: always Drive intox or ride w/intox rickshaw 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
[2023-12-21 09:15] VITALS: BP 150/82; PULSE 105; RESP 18; O2SAT 99
== END 2023-12-21 09:16 | disposition home or self-care (01) ==
LOC: ER 08:55
PROVIDERS: Emergency Provider Physician Assistant; PCP Family Medicine
DX: S80.861A Insect bite (nonvenomous), right lower leg, initial encounter (principal); W57.XXXA Bitten or stung by nonvenomous insect and other nonvenomous arthropods, initial encounter
CPT/HCPCS: 99282

== ENCOUNTER 2023-12-22 07:52 | Emergency (ER) | payer OTHER, SELFPAY ==
[2023-12-22 07:55] VITALS: BP 141/79; PULSE 121; RESP 13; TEMP 36.6; O2SAT 98
--- NOTE | 2023-12-22 08:00 | RT.EKG_ITS ---
APPROVED REPORT Exam: Resting ECG Reason for Exam: Chest pain Patient Location: E HR:127 bpm ECG Measurements Heart Rate 127 AXIS CA 141 P 45 QRSd 99 QRS 53 QT 320 T 23 QTc 466 Conclusion Sinus tachycardia...rate> 99
== END 2023-12-22 11:42 | disposition left against medical advice (07) ==
PROVIDERS: Emergency Provider Registered Nurse Emergency; PCP Family Medicine
DX: Z53.21 Procedure and treatment not carried out due to patient leaving prior to being seen by health care provider (principal)
CPT/HCPCS: 93005; 93010

== ENCOUNTER 2023-12-27 15:20 | Emergency (ER) | payer MEDICAID, SELFPAY ==
[2023-12-27] VITALS (22 sets, daily range): BP systolic 105–124; BP diastolic 62–90; PULSE 76–127; RESP 11–18; TEMP 36.8; O2SAT 96
--- NOTE | 2023-12-27 15:15 | RT.EKG_ITS ---
APPROVED REPORT Exam: Resting ECG Reason for Exam: Chest Pain Patient Location: E HR:126 bpm ECG Measurements Heart Rate 126 AXIS MO 148 P 55 QRSd 96 QRS 115 QT 317 T -16 QTc 459 Conclusion Sinus tachycardia...rate> 99 Right axis deviation...QRS axis (100,269) Borderline T abnormalities, diffuse leads...T flat/neg
[2023-12-27 17:12] LABS: Anion Gap 7.9 mmol/L (3-11); BUN 20 mg/dL (7-18); CO2 28.1 mmol/L (21.0-32.0); CREATININE 1.2 mg/dL (0.70-1.30); Calcium 7.6 mg/dL (8.5-10.1); Chloride 103 mmol/L (98-107); Estimated GFR 83.43 (mL/min/1.73m2); Glucose 105 mg/dL (74-106); Magnesium 1.7 mg/dL (1.8-2.4); Potassium 3.7 mmol/L (3.5-5.1); Sodium 139 mmol/L (136-145)
[2023-12-27] MEDS: Magnesium Oxide 400 MG TAB 800 MG PO (18:38)
[2023-12-27] MEDS: Calcium Gluconate 4.65 MEQ/10 ML VIAL 4.65 MG IVP (18:38)
[2023-12-27] MEDS: Normal Saline 100 ML (18:41)
--- NOTE | 2023-12-27 19:54 | ED.GENADUL_ITS ---
Discharge Plan Disposition Patient Disposition: Home Condition: Stable Discharge Details Clinical Impression: Hypocalcemia Primary Care Provider: Brendon Vivar ED Provider: Luh Tsai Home Meds and New Rx's Prescriptions: Continued gabapentin 300 mg capsule 300 mg PO BID Qty: 180 3RF clonazepam 1 mg tablet 1 mg PO BID Qty: 56 1RF cyclobenzaprine 10 mg tablet 10 mg PO TID PRN (Reason: muscle spasm) Qty: 30 3RF methadone 10 mg/5 mL solution 105 mg PO QAM calcitriol 0.5 mcg capsule 0.5 mcg PO BID Qty: 360 3RF polyethylene glycol 3350 17 gram/dose powder 17 g PO DAILY PRN omeprazole 40 mg capsule,delayed release(DR/EC) 40 mg PO DAILY Qty: 90 3RF famotidine 20 mg tablet 20 mg PO BID calcium carbonate [Tums] 200 mg calcium (500 mg) tablet,chewable 2,000 mg PO BID prochlorperazine maleate 5 mg tablet 5 mg PO TID PRN (Reason: acute nausea) Qty: 30 0RF diclofenac sodium 1 % gel 4 g topical QID PRN Rx Instructions: apply to single knee, ankle, foot; for foot includes sole/toes/top of foot ondansetron 4 mg tablet,disintegrating 4 mg PO Q6H PRN (Reason: nausea and vomiting) Qty: 20 0RF simethicone 125 mg tablet,chewable 125 mg PO QID PRN (Reason: abdominal distention) Qty: 20 0RF magnesium gluconate 27 mg magnesium (500 mg) tablet 13.5 mg PO TID Qty: 60 3RF Discharge Instructions Instructions: Hypocalcemia Additional Instructions: Increase your calcitriol to 0.5 mcg in the morning and 1 mcg in the morning Regular fluids Please return should you develop new or worsening complaints Please follow-up with endocrinology at your scheduled appointment Referrals: Brendon Vivar DO [Primary Care Provider] - HPI General Date/Time Provider Initiated Documentation: 12/27/23 15:21 . HPI Narrative: This complex 28-year-old male who is well-known to this emergency department with history of parathyroidectomy, CKD presents with report of paresthesias to his mouth and hands. States this is consistent with his prior episodes of hypercalcemia. He states he is taking 4 g of Tylenol in the morning and 4 g at night. He also is taking his calcitriol 0 point 5 in the morning and 0 point 5 at night. He denies any chest pain, shortness of breath, seizures, or any additional complaints at this time. Related Data Home Medications ?Medication ?Instructions ?Recorded ?Confirmed calcium carbonate (Tums) 2,000 mg PO BID 02/02/23 12/27/23 calcitriol 0.5 mcg capsule 0.5 mcg PO BID #360 caps 04/21/23 12/27/23 methadone 10 mg/5 mL oral solution 105 mg PO QAM 06/12/23 12/27/23 polyethylene glycol 3350 17 17 g PO DAILY PRN 06/12/23 12/27/23 gram/dose oral powder gabapentin 300 mg capsule 300 mg PO BID #180 caps 06/23/23 12/27/23 omeprazole 40 mg capsule,delayed 40 mg PO DAILY #90 caps 07/21/23 12/27/23 release prochlorperazine maleate 5 mg 5 mg PO TID PRN acute nausea #30 09/06/23 12/27/23 tablet tabs simethicone 125 mg chewable tablet 125 mg PO QID PRN abdominal 10/30/23 12/27/23 distention #20 tabs magnesium gluconate 27 mg 13.5 mg (1/2 x 27 mg magnesium 11/21/23 12/27/23 magnesium (500 mg) tablet (500 mg)) PO TID #60 tabs famotidine 20 mg tablet 20 mg PO BID 11/24/23 12/27/23 clonazepam 1 mg tablet 1 mg PO BID #56 tabs 12/04/23 12/27/23 cyclobenzaprine 10 mg tablet 10 mg PO TID PRN muscle spasm #30 12/04/23 12/27/23 tabs diclofenac sodium 1 % topical gel 4 g topical QID PRN 12/15/23 12/27/23 ondansetron 4 mg disintegrating 4 mg PO Q6H PRN nausea and 12/15/23 12/27/23 tablet vomiting #20 tabs Previous Rx's ?Medication ?Instructions ?Recorded calcitriol 0.5 mcg capsule 0.5 mcg PO BID #360 caps 04/21/23 gabapentin 300 mg capsule 300 mg PO BID #180 caps 06/23/23 omeprazole 40 mg capsule,delayed 40 mg PO DAILY #90 caps 07/21/23 release prochlorperazine maleate 5 mg 5 mg PO TID PRN acute nausea #30 09/06/23 tablet tabs simethicone 125 mg chewable tablet 125 mg PO QID PRN abdominal 10/30/23 distention #20 tabs magnesium gluconate 27 mg 13.5 mg (1/2 x 27 mg magnesium 11/21/23 magnesium (500 mg) tablet (500 mg)) PO TID #60 tabs clonazepam 1 mg tablet 1 mg PO BID #56 tabs 12/04/23 cyclobenzaprine 10 mg tablet 10 mg PO TID PRN muscle spasm #30 12/04/23 tabs ondansetron 4 mg disintegrating 4 mg PO Q6H PRN nausea and 12/15/23 tablet vomiting #20 tabs Allergies Allergy/AdvReac Type Severity Reaction Status Date / Time codeine Allergy Intermediate pass out Verified 12/27/23 15:29 Penicillins Allergy Skin Rash Verified 12/27/23 15:29 amoxicillin AdvReac Intermediate Nausea Verified 12/27/23 15:29 dextromethorphan (From AdvReac Intermediate Other (See Verified 12/27/23 15:29 NyQuil) Comment) doxylamine (From NyQuil) AdvReac Intermediate Other (See Verified 12/27/23 15:29 Comment) pseudoephedrine (From NyQuil) AdvReac Intermediate Other (See Verified 12/27/23 15:29 Comment) General Stated Complaint: GenMedical ADRIANA: 3 Exam Narrative Exam Narrative: Alert and oriented male in no acute distress, pupils equal round reactive to light and accommodation, negative chovsteks , No respiratory distress, cardiac rate rhythm regular ambulatory with steady gait, alert and oriented x 4, cranial nerves II through XII intact, sensation intact distally to all 4 extremities and strength intact distally to all 4 extremity Course Vital Signs Vital signs: Vital Signs Temperature 36.8 C 12/27/23 15:27 Pulse 127 H 12/27/23 15:27 Respiratory Rate 14 12/27/23 15:27 Blood Pressure 124/90 12/27/23 15:27 Pulse Oximetry 96 12/27/23 15:27 Temperature 36.8 C 12/27/23 15:27 Temperature Source Skin 12/27/23 15:27 Pulse 86 12/27/23 19:26 Pulse Rhythm Regular 12/27/23 18:38 Pulse 91 H 12/27/23 19:50 Respiratory Rate 18 12/27/23 19:50 Respiratory Effort Normal 12/27/23 18:39 Respiratory Depth Normal 12/27/23 18:39 Respiratory Pattern Normal 12/27/23 18:39 Blood Pressure 113/70 12/27/23 19:26 Blood Pressure Mean 80 12/27/23 19:26 Blood Pressure Position Sitting 12/27/23 15:27 Pulse Oximetry 96 12/27/23 15:27 Oxygen Delivery Method Room Air 12/27/23 15:27 Oxygen Flow Rate 0 12/27/23 15:27 Pain Level 4 12/27/23 15:27 Lab/Test Results Lab/Test Results: Laboratory Tests Range/Units 12/27/23 16:50 Sodium (136-145) mmol/L 139 Potassium (3.5-5.1) mmol/L 3.7 Chloride (98-107) mmol/L 103 Carbon Dioxide (21.0-32.0) mmol/L 28.1 Anion Gap (3-11) mmol/L 7.9 BUN (7-18) mg/dL 20 H Creatinine (0.70-1.30) mg/dL 1.2 Est GFR (CKD-EPI 2020) (mL/min/1.73m2) 83.43 Glucose (74-106) mg/dL 105 Calcium (8.5-10.1) mg/dL 7.6 L Magnesium (1.8-2.4) mg/dL 1.7 L Medical Decision Making 28-year-old male in no acute distress presenting with what patient describes as hypercalcemia. After reviewing history and patient's symptoms, I did give 1 g of calcium gluconate. Patient was also discussed with endocrinology at [facility] his recommendation is to increase calcitriol to 1.5 mcg total daily from 0.5 twice daily. He has an appointment on the with endocrinology. Patient's magnesium was 1.7, he was given 800 mg of magnesium in the emergency department. He has no QTc prolongation on his EKG his EKG is unchanged from prior when compared. Patient denies any chest pain or shortness of breath. On reassessment patient is feeling improvement in symptoms and is requesting discharge home. He is encouraged to follow-up with endocrinology at his scheduled appointment and return earlier should he have new or worsening complaints. Patient was observed on telemetry while receiving calcium. Pulses improved patient is resting comfortably at time of reassessment Quality:SDOH Health Related Social Needs: Health related social needs transpo insecurity PFSH All Active Problems (Updated 12/27/23 @ 19:48 by ANDREW Arriaga) Hypocalcemia (Acute) Insect bite of leg, right (Acute) Superficial incisional surgical site infection (Acute) Paresthesia (Acute) Transaminitis (Acute) Encounter for postoperative wound check (Acute) Testicle lump (Acute) Hamstring tendinitis of left thigh (Acute) Pes anserine bursitis (Acute) Hypernatremia (Acute) Cervical radiculopathy (Acute) Left-sided Flower's palsy (Acute) Constipation (Acute) Grief reaction (Chronic) Opiate dependence, continuous (Acute) 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 Possible 2' Methadone, Clnzpm (?). Surg eval (+)/No further action. History of electrolyte imbalance (Acute) Neck pain on left side (Acute) with shoulder, upper back pain.. torticollis, radiating into left hip/leg Pulmonary nodule 1 cm or greater in diameter (Chronic) Therapeutic opioid induced constipation (Acute) Sphincter of Oddi dysfunction (Chronic) Abnormal CT scan, kidney (Acute) Intrahepatic bile duct dilation (Acute) Common bile duct dilatation (Chronic) Has been dilated for quite some time, now more-so. Normal LFTs. Known gallstones. Iatrogenic hypocalcemia (Acute) Multiple endocrine neoplasia type I (Chronic) Depression (Chronic) Hypocalcemia (Chronic) Elevated parathyroid hormone (Acute) Family history of coronary arteriosclerosis (Chronic) Father of ME at 50, mother had ME at 42 Severe anxiety with panic (Chronic) Medical History CKD (chronic kidney disease) stage 2, GFR 60-89 ml/min GFR 64-65, with Hx FLORESITA and GFR < 45 Primary hyperparathyroidism Complex medical condition Serious electrolyte imbalances, with gynecomastia, possible MEN Dx, CKD and anemia with baseline anxiety and Hx PTSD. Hypocalcemia Anxiety Depression Hyperlipidemia Family history of multiple endocrine neoplasia, type 1 PTSD (post-traumatic stress disorder) Per pt. states no triggers at this time. Surgical History History of laparoscopic cholecystectomy (~11/2023) H/O parathyroidectomy Family History Mother Anxiety Asthma Depression Sister Anxiety Depression Father Cancer lung & stomach Depression Diabetes Hypertension MEN 1 (multiple endocrine neoplasia) Social History Smoking/Tobacco Use Status: Never Smoking risk assessment performed?: Yes Alcohol Intake: never Drug use: Current Sobriety Substance use type: former substance user Adopted: No Caregiver/Support person: No Foster care: No Household members: none Housing: apartment Number of Children: 0 Communication Needs: None Education Level: high school Do you need help understanding health information?: Never 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[employer] Pets and animals: Yes (Ally) Pets and animals: dog(s) Sexually active: No Do you think of yourself as: straight/heterosexual Current gender identity: male What is your relationship status?: How often do you talk on the phone with friends or family?: twice per week How often do you get together with friends or relatives?: never Do you belong to any clubs or organized social groups?: no Panel score (0-1 are the most socially isolated patients): 0 What type of physical activity do you participate in: walking Duration: 15-30 minutes/day Frequency: 5-6 times per week Maryam/Sikhism: Bahai Special maryam needs: No Seatbelt use: always Helmet use: Yes Helmet use: always Drive intox or ride w/intox shuttle 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
[2023-12-28 15:57] LABS: Ionized Calcium 0.98 mmol/L (1.14-1.35)
[2023-12-29 11:22] LABS: Parathyroid Hormone,Intact <6 pg/mL (19-88)
[2024-01-01 13:12] LABS: 1,25-Dihydroxyvitamin D 32 pg/mL (18-64)
== END 2023-12-27 20:03 | disposition home or self-care (01) ==
PROVIDERS: Emergency Provider Physician Assistant; PCP Family Medicine
DX: E83.51 Hypocalcemia (principal); R00.2 Palpitations; R07.9 Chest pain, unspecified
CPT/HCPCS: 36415; 80048; 93005; 96374; 99284; 82330; 82652; 83735; 83970; 93010; 99283; J0612

== ENCOUNTER 2023-12-31 19:29 | Emergency (ER) | payer OTHER, SELFPAY ==
[2023-12-31 19:31] VITALS: BP 126/95; PULSE 113; RESP 24; TEMP 36.2; O2SAT 97
--- NOTE | 2023-12-31 20:07 | ED.GENADUL_ITS ---
Discharge Plan Disposition Patient Disposition: Home Condition: Stable Discharge Details Clinical Impression: Chronic abdominal pain Primary Care Provider: Brendon Vivar ED Provider: Richy Oakes Home Meds and New Rx's Prescriptions: Continued gabapentin 300 mg capsule 300 mg PO BID Qty: 180 3RF clonazepam 1 mg tablet 1 mg PO BID Qty: 56 1RF cyclobenzaprine 10 mg tablet 10 mg PO TID PRN (Reason: muscle spasm) Qty: 30 3RF methadone 10 mg/5 mL solution 105 mg PO QAM calcitriol 0.5 mcg capsule 0.5 mcg PO BID Qty: 360 3RF polyethylene glycol 3350 17 gram/dose powder 17 g PO DAILY PRN omeprazole 40 mg capsule,delayed release(DR/EC) 40 mg PO DAILY Qty: 90 3RF famotidine 20 mg tablet 20 mg PO BID calcium carbonate [Tums] 200 mg calcium (500 mg) tablet,chewable 2,000 mg PO BID prochlorperazine maleate 5 mg tablet 5 mg PO TID PRN (Reason: acute nausea) Qty: 30 0RF diclofenac sodium 1 % gel 4 g topical QID PRN Rx Instructions: apply to single knee, ankle, foot; for foot includes sole/toes/top of foot ondansetron 4 mg tablet,disintegrating 4 mg PO Q6H PRN (Reason: nausea and vomiting) Qty: 20 0RF simethicone 125 mg tablet,chewable 125 mg PO QID PRN (Reason: abdominal distention) Qty: 20 0RF magnesium gluconate 27 mg magnesium (500 mg) tablet 13.5 mg PO TID Qty: 60 3RF Discharge Instructions Instructions: Abdominal Pain, Adult ED Additional Instructions: You were seen in the emergency department for your stomach pain since Friday that comes and goes. You state this pain is not horrible and is worse 5 minutes after eating-this is suspicious for gastritis and you are on omeprazole. You may need to contact your primary care provider in the [place] to schedule an upper endoscopy. Otherwise your laboratory results are benign there is no evidence of sepsis or elevated liver enzymes I do not suspect a residual stone stuck in your common bile duct. You were objectively nontender on exam and without signs of peritonitis. Due to your extensive history of CT scans you engaged in shared decision making and opted for an outpatient ultrasound tomorrow please follow-up with your primary care provider as well as [facility] general surgery practice who follows you for these abdominal issues. Please use your at home medication regimens, please return to the ER for any severe increase in pain especially with fever, intractable nausea or vomiting, chest pain or shortness of breath. Referrals: Brendon Vivar DO [Primary Care Provider] - Discharge Data Discharge Date/Time-TO BE ENTERED AT DEPARTURE: 12/31/23 22:41 HPI General Date/Time Provider Initiated Documentation: 12/31/23 19:51 . HPI Narrative: 28 year-old male presents to ED today by POV/ambulating with a chief complaint of acute on chronic abdominal pain- complicated biliary colic history with cholecystectomy weeks ago with onset since Friday. Quality described as similar to his old gallbladder pains but worse, not currently active, endorses diarrhea and poor appetite, no radiation to fever, cough, chest pain, shortness of breath, intractable nausea/vomiting, black/bloody diarrhea, patient endorses PO intake of water today. Severity is described as severe. Palliating factors include nothing specific. Provoking factors include nothing specific. Patient not anticoagulated. Related Data Home Medications ?Medication ?Instructions ?Recorded ?Confirmed calcium carbonate (Tums) 2,000 mg PO BID 02/02/23 12/31/23 calcitriol 0.5 mcg capsule 0.5 mcg PO BID #360 caps 04/21/23 12/31/23 methadone 10 mg/5 mL oral solution 105 mg PO QAM 06/12/23 12/31/23 polyethylene glycol 3350 17 17 g PO DAILY PRN 06/12/23 12/31/23 gram/dose oral powder gabapentin 300 mg capsule 300 mg PO BID #180 caps 06/23/23 12/31/23 omeprazole 40 mg capsule,delayed 40 mg PO DAILY #90 caps 07/21/23 12/31/23 release prochlorperazine maleate 5 mg 5 mg PO TID PRN acute nausea #30 09/06/23 12/31/23 tablet tabs simethicone 125 mg chewable tablet 125 mg PO QID PRN abdominal 10/30/23 12/31/23 distention #20 tabs magnesium gluconate 27 mg 13.5 mg (1/2 x 27 mg magnesium 11/21/23 12/31/23 magnesium (500 mg) tablet (500 mg)) PO TID #60 tabs famotidine 20 mg tablet 20 mg PO BID 11/24/23 12/31/23 clonazepam 1 mg tablet 1 mg PO BID #56 tabs 12/04/23 12/31/23 cyclobenzaprine 10 mg tablet 10 mg PO TID PRN muscle spasm #30 12/04/23 12/31/23 tabs diclofenac sodium 1 % topical gel 4 g topical QID PRN 12/15/23 12/31/23 ondansetron 4 mg disintegrating 4 mg PO Q6H PRN nausea and 12/15/23 12/31/23 tablet vomiting #20 tabs Previous Rx's ?Medication ?Instructions ?Recorded calcitriol 0.5 mcg capsule 0.5 mcg PO BID #360 caps 04/21/23 gabapentin 300 mg capsule 300 mg PO BID #180 caps 06/23/23 omeprazole 40 mg capsule,delayed 40 mg PO DAILY #90 caps 07/21/23 release prochlorperazine maleate 5 mg 5 mg PO TID PRN acute nausea #30 09/06/23 tablet tabs simethicone 125 mg chewable tablet 125 mg PO QID PRN abdominal 10/30/23 distention #20 tabs magnesium gluconate 27 mg 13.5 mg (1/2 x 27 mg magnesium 11/21/23 magnesium (500 mg) tablet (500 mg)) PO TID #60 tabs clonazepam 1 mg tablet 1 mg PO BID #56 tabs 12/04/23 cyclobenzaprine 10 mg tablet 10 mg PO TID PRN muscle spasm #30 12/04/23 tabs ondansetron 4 mg disintegrating 4 mg PO Q6H PRN nausea and 12/15/23 tablet vomiting #20 tabs Allergies Allergy/AdvReac Type Severity Reaction Status Date / Time codeine Allergy Intermediate pass out Verified 12/31/23 19:34 Penicillins Allergy Skin Rash Verified 12/31/23 19:34 amoxicillin AdvReac Intermediate Nausea Verified 12/31/23 19:34 dextromethorphan (From AdvReac Intermediate Other (See Verified 12/31/23 19:34 NyQuil) Comment) doxylamine (From NyQuil) AdvReac Intermediate Other (See Verified 12/31/23 19:34 Comment) pseudoephedrine (From NyQuil) AdvReac Intermediate Other (See Verified 12/31/23 19:34 Comment) General Stated Complaint: Abd Prob ADRIANA: 3 Review of Systems All systems reviewed & are unremarkable except as noted in HPI and below Exam Narrative Exam Narrative: GENERAL APPEARANCE: Well-nourished, non-toxic, awake and alert, atraumatic, no acute distress. SKIN: Warm, pink, dry, intact, without rashes/lesions/ulcerations. HEAD: Normocephalic, atraumatic, normal hair distribution for gender/age. EYES: Pupils PERRLA, EOMs intact without nystagmus, normal conjunctiva, no exudates on lids/lashes. ENT: Nares patent, no circumoral cyanosis, no facial swelling NECK: Supple, trachea midline, painless cervical ROM. LUNGS/CHEST: Lungs CTA bilaterally, non-labored respirations, normal A/P diameter, symmetrical expansion, no chest wall deformity HEART (CV/PV): Regular rate and rhythm without murmur, no peripheral edema, no JVD. ABDOMEN: Soft, non-distended, no guarding, epigastric tenderness without Cedillo's or peritoneal signs. MSK: Normal ROM, no swelling/deformity to bilateral UEs or LEs, moving all extremities without weakness, no cyanosis, spine midline without tenderness, normal curvature. NEURO: Mental Status AAOx4 - alert to person, place, time, events No facial droop, no forehead involvement. Motor: No focal weakness - strength 5/5 in bilateral UEs and LEs, proximal and distal, symmetric. Sensory: sensation intact to light touch globally. Gait normal: patient ambulated without ataxia into ED room. PSYCH: euthymic, cooperative, pleasant, appropriate speech Course Vital Signs Vital signs: Vital Signs Temperature 36.2 C L 12/31/23 19:31 Pulse 113 H 12/31/23 19:31 Respiratory Rate 24 12/31/23 19:31 Blood Pressure 126/95 H 12/31/23 19:31 Pulse Oximetry 97 12/31/23 19:31 Temperature 36.2 C L 12/31/23 19:31 Pulse 113 H 12/31/23 19:31 Respiratory Rate 24 12/31/23 19:31 Respiratory Effort Normal, Non-Labored 12/31/23 19:34 Blood Pressure 126/95 H 12/31/23 19:31 Blood Pressure Position Sitting 12/31/23 19:31 Pulse Oximetry 97 12/31/23 19:31 Oxygen Delivery Method Room Air 12/31/23 19:31 Oxygen Flow Rate 0 12/31/23 19:31 Pain Level 4 12/31/23 19:38 Medical Decision Making This dictation utilizes [id number] dictation software and may contain unedited grammatical errors. 28 year-old male presents to ED today by POV/ambulating with a chief complaint of acute on chronic abdominal pain- complicated biliary colic history with cholecystectomy weeks ago with onset since Friday. Quality described as similar to his old gallbladder pains but worse, not currently active, endorses diarrhea and poor appetite, no radiation to fever, cough, chest pain, shortness of breath, intractable nausea/vomiting, black/bloody diarrhea, patient endorses PO intake of water today. Severity is described as severe. Palliating factors include nothing specific. Provoking factors include nothing specific. Patients' medical history: CKD, complex medical history, history of primary hyperparathyroidism, recent cholecystectomy, chronic abdominal pain with sphincter of Oddi dysfunction, gynecomastia, depression, severe health anxiety. Family and social history: lives independently. Pertinent exam findings / vital signs include epigastric tenderness without peritoneal signs, normoactive bowel sounds, afebrile, nontoxic, benign cardiopulmonary exam. Differential / pathologies of concern include pancreatitis, SBO unlikely, biliary colic, unlikely sepsis, gastroenteritis, gastritis. Diagnostic studies of: -CBC, CMP, lactate, liver panel, UA, procalcitonin, lipase, CRP, magnesium- imaging held for lab results. -No leukocytosis -CMP is benign -Magnesium mildly low -Lipase within normal limits -Lactate negative -UA benign Interventions of: -IVF. ED Course/Assessment/Plan: 28-year-old male with chronic abdominal pain issues presents couple weeks status postcholecystectomy, endorses intermittent pain similar to his prior gallbladder pains, has frequent ER visits for his chronic abdominal pain with excessive amounts of CTs and history, his labs are all reassuring for no signs of systemic infection, liver enzymes are normal, no elevated conjugated bilirubin, lipase within normal limits, urine is benign and he has no leukocytosis and a normal lactate, I did director of group counseling program him that we could avoid a CT and he could try an ultrasound of the right upper quadrant tomorrow which I am happy to order for him, patient engaged in shared decision-making and was on board with this, he was not having active abdominal pain here in the emergency department, strict return criteria for severe worsening abdominal pain especially with intractable nausea or vomiting, inability to tolerate p.o. intake, fever. Patient later endorsed that his pain comes on almost immediately within eating and he has not obtained an upper endoscopy, I did director of group counseling program him on the need to follow-up with general surgery to discuss possible gastritis and the need for upper endoscopy Findings not consistent with sepsis, obstructive biliary pathology, obstructive renal pathology, SBO, perforated viscus. Disposition of Chronic Abdominal Pain. Patient verbalized understanding of the plan and return to ED criteria and engaged in shared decision making. Medical Records Medical records reviewed: Yes I reviewed the patient's medical records. Lab Data Lab results reviewed: Yes I reviewed the patient's lab results. Labs: Laboratory Tests Range/Units 12/31/23 12/31/23 20:05 20:20 WBC (4.4-10.8) 10^3/uL 9.18 RBC (4.36-5.78) 10^6/uL 4.37 Hgb (13.5-17.5) g/dL 12.0 L Hct (40.0-50.0) % 36.9 L MCV (80-95) fL 84 MCH (27.0-33.0) pg 27.5 MCHC (32.0-36.0) % 32.5 RDW (11.8-14.1) % 13.2 Plt Count (130-400) 10^3/uL 321 MPV (8.0-11.0) fL 9.5 Immature Gran % % 0.4 Neutrophils % % 67.5 Lymphocytes % % 19.9 Monocytes % % 9.3 Eosinophils % % 2.5 Basophils % % 0.4 Nucleated RBC % (0.0-0.3) % 0.0 Absolute Neutrophils (1.2-6.7) 10^3/uL 6.19 Absolute Lymphocytes (1.2-3.4) 10^3/uL 1.83 Absolute Monocytes (0.1-0.8) 10^3/uL 0.85 H Absolute Eosinophils (0.0-0.7) 10^3/uL 0.23 Absolute Basophils (0.0-0.2) 10^3/uL 0.04 VBG Lactate (0.6-1.4) mmol/L 1.1 Sodium (136-145) mmol/L 139 Potassium (3.5-5.1) mmol/L 3.8 Chloride (98-107) mmol/L 101 Carbon Dioxide (21.0-32.0) mmol/L 32.7 H Anion Gap (3-11) mmol/L 5.3 BUN (7-18) mg/dL 16 Creatinine (0.70-1.30) mg/dL 1.3 Est GFR (CKD-EPI 2020) (mL/min/1.73m2) 75.79 Glucose (74-106) mg/dL 105 Calcium (8.5-10.1) mg/dL 8.5 Magnesium (1.8-2.4) mg/dL 1.7 L Total Bilirubin (0.2-1.0) mg/dL 0.14 L Conjugated Bilirubin (0.0-0.2) mg/dL 0.1 AST (15-37) U/L 19 ALT (16-63) U/L 60 Alkaline Phosphatase (46-116) U/L 208 H C-Reactive Protein (<or=0.5) mg/dL 0.81 H Total Protein (6.4-8.2) g/dL 7.8 Albumin (3.4-5.0) g/dL 3.1 L Lipase (16-77) U/L 32 Procalcitonin ng/mL < 0.1 Urine Color (Yellow) Yellow Urine Clarity (Clear) Clear Urine pH (5-8) 7.0 Ur Specific Mulhall (1.005-1.025) 1.015 Urine Protein (Neg-Trace) mg/dL Negative Urine Ketones (Negative) mg/dL Negative Urine Blood (Negative) Negative Urine Nitrite (Negative) Negative Urine Bilirubin (Negative) Negative Urine Urobilinogen (Up to 0.2) mg/dL 0.2 Ur Leukocyte Esterase (Negative) Negative Urine Glucose (Negative) mg/dL Negative Quality:SDOH Health Related Social Needs: Health related social needs transpo insecurity PFSH All Active Problems (Updated 01/02/24 @ 00:06 by HAMMAD WILEY) Chronic abdominal pain (Acute) Hypocalcemia (Acute) Insect bite of leg, right (Acute) Superficial incisional surgical site infection (Acute) Paresthesia (Acute) Testicle lump (Acute) Hamstring tendinitis of left thigh (Acute) Pes anserine bursitis (Acute) Hypernatremia (Acute) Cervical radiculopathy (Acute) Left-sided Flower's palsy (Acute) Constipation (Acute) Grief reaction (Chronic) Opiate dependence, continuous (Acute) 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 Possible 2' Methadone, Clnzpm (?). Surg eval (+)/No further action. History of electrolyte imbalance (Acute) Neck pain on left side (Acute) with shoulder, upper back pain.. torticollis, radiating into left hip/leg Pulmonary nodule 1 cm or greater in diameter (Chronic) Therapeutic opioid induced constipation (Acute) Sphincter of Oddi dysfunction (Chronic) Abnormal CT scan, kidney (Acute) Intrahepatic bile duct dilation (Acute) Common bile duct dilatation (Chronic) Has been dilated for quite some time, now more-so. Normal LFTs. Known gallstones. Iatrogenic hypocalcemia (Acute) Multiple endocrine neoplasia type I (Chronic) Depression (Chronic) Hypocalcemia (Chronic) Elevated parathyroid hormone (Acute) Family history of coronary arteriosclerosis (Chronic) Father of IN at 50, mother had IN at 42 Severe anxiety with panic (Chronic) Medical History CKD (chronic kidney disease) stage 2, GFR 60-89 ml/min GFR 64-65, with Hx FLORESITA and GFR < 45 Primary hyperparathyroidism Complex medical condition Serious electrolyte imbalances, with gynecomastia, possible MEN Dx, CKD and anemia with baseline anxiety and Hx PTSD. Hypocalcemia Anxiety Depression Hyperlipidemia Family history of multiple endocrine neoplasia, type 1 PTSD (post-traumatic stress disorder) Per pt. states no triggers at this time. Surgical History History of laparoscopic cholecystectomy (~11/2023) H/O parathyroidectomy Family History Mother Anxiety Asthma Depression Sister Anxiety Depression Father Cancer lung & stomach Depression Diabetes Hypertension MEN 1 (multiple endocrine neoplasia) Social History Smoking/Tobacco Use Status: Never Smoking risk assessment performed?: Yes Alcohol Intake: never Drug use: Current Sobriety Substance use type: former substance user Adopted: No Caregiver/Support person: No Foster care: No Household members: none Housing: apartment Number of Children: 0 Communication Needs: None Education Level: high school Do you need help understanding health information?: Never current occupation: [employer] Pets and animals: Yes (Ally) Pets and animals: dog(s) Sexually active: No Do you think of yourself as: straight/heterosexual Current gender identity: male What is your relationship status?: How often do you talk on the phone with friends or family?: twice per week How often do you get together with friends or relatives?: never Do you belong to any clubs or organized social groups?: no Panel score (0-1 are the most socially isolated patients): 0 What type of physical activity do you participate in: walking Duration: 15-30 minutes/day Frequency: 5-6 times per week Maryam/Lutheran: Bahai Special maryam needs: No Seatbelt use: always Helmet use: Yes Helmet use: always Drive intox or ride w/intox 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
[2023-12-31 20:24] LABS: Lactate 1.1 mmol/L (0.6-1.4)
[2023-12-31 20:26] LABS: Abs Immature Grans 0.04 10^3/uL (0.0-0.06); Absolute Basophil Count 0.04 10^3/uL (0.0-0.2); Absolute Eosinophil Count 0.23 10^3/uL (0.0-0.7); Absolute Lymphocyte Count 1.83 10^3/uL (1.2-3.4); Absolute Monocyte Count 0.85 10^3/uL (0.1-0.8); Absolute Neutrophil Count 6.19 10^3/uL (1.2-6.7); Basophils % 0.4 %; Eosinophils % 2.5 %; HCT 36.9 % (40.0-50.0); Immature Grans % 0.4 %; Lymphocytes % 19.9 %; MCH 27.5 pg (27.0-33.0); MCHC 32.5 % (32.0-36.0); MCV 84 fL (80-95); MPV 9.5 fL (8.0-11.0); Monocytes % 9.3 %; Neutrophils % 67.5 %; Platelet Count 321 10^3/uL (130-400); RBC 4.37 10^6/uL (4.36-5.78); RDW 13.2 % (11.8-14.1); RDW-SD 40.5 fL; WBC 9.18 10^3/uL (4.4-10.8)
[2023-12-31 20:31] LABS: Bilirubin Negative (Negative); Blood Negative (Negative); Clarity Clear (Clear); Glucose Negative (Negative); Ketones Negative (Negative); Leukocyte Esterase Negative (Negative); Nitrite Negative (Negative); Specific Gravity 1.015 (1.005-1.025); Urobilinogen 0.2 mg/dL (Up to 0.2)
[2023-12-31 20:49] LABS: ALT 60 U/L (16-63); AST 19 U/L (15-37); Albumin 3.1 g/dL (3.4-5.0); Alkaline Phosphatase 208 U/L (46-116); Anion Gap 5.3 mmol/L (3-11); BUN 16 mg/dL (7-18); Bilirubin, Direct 0.1 mg/dL (0.0-0.2); Bilirubin, Total 0.14 mg/dL (0.2-1.0); C-Reactive Protein 0.81 mg/dL (<or=0.5); CO2 32.7 mmol/L (21.0-32.0); CREATININE 1.3 mg/dL (0.70-1.30); Calcium 8.5 mg/dL (8.5-10.1); Chloride 101 mmol/L (98-107); Estimated GFR 75.79 (mL/min/1.73m2); Glucose 105 mg/dL (74-106); Lipase 32 U/L (16-77); Magnesium 1.7 mg/dL (1.8-2.4); Potassium 3.8 mmol/L (3.5-5.1); Sodium 139 mmol/L (136-145); Total Protein 7.8 g/dL (6.4-8.2)
[2023-12-31 21:02] LABS: Procalcitonin < 0.1 ng/mL
[2023-12-31 21:32] VITALS: BP 117/76; PULSE 88; RESP 18; TEMP 36.6; O2SAT 96
[2023-12-31 22:20] VITALS: BP 110/73; PULSE 87; RESP 16; O2SAT 99
[2023-12-31 22:40] VITALS: BP 110/73; PULSE 87; RESP 16; TEMP 36.6; O2SAT 99
--- NOTE | 2024-01-01 00:10 | NUR.NOTE ---
abd ultrasound requisiton faxed to [facility]. Patient advised to call [facility] scheduling 01/01/24 anytime after 7am. Patient given abd ultrasound instruction sheet.Nursing Note:
== END 2023-12-31 22:41 | disposition home or self-care (01) ==
PROVIDERS: Emergency Provider Physician Assistant; PCP Family Medicine
DX: R19.7 Diarrhea, unspecified (principal); R10.9 Unspecified abdominal pain; G89.29 Other chronic pain
CPT/HCPCS: 36415; 80048; 80076; 83690; 84145; 99284; 81003; 83605; 83735; 85025; 86140; 99283

== ENCOUNTER → 2024-01-01 08:06 | Outpatient (CLI) | payer MEDICAID, SELFPAY ==
--- NOTE | 2024-01-01 | DI.US_ITS ---
Exam(s) US ABDOMEN LIMITED EXAM: US ABDOMEN LIMITED CLINICAL HISTORY: RUQ ABD PAIN TECHNIQUE: Ultrasound abdomen performed using standard protocol. COMPARISON: CT CT CHEST PE CTA from 11/29/[address] CHEST PE CTA from 12/02/2023 FINDINGS: There is no ascites evident. LIVER: Hyperechoic/hepatic steatosis. No focal hepatic lesions identified. GALLBLADDER/BILIARY: Gallbladder surgically absent. The common hepatic duct isnot dilated, measuring 5mm at the level of kaela hepatis. PANCREAS: There is no evidence of pancreatic mass nor dilatation of the pancreatic duct. RIGHT KIDNEY:No evidence of solid mass, calculus, nor hydronephrosis. No cortical cysts evident. IMPRESSION: 1. The gallbladder surgically absent. The biliary tree is not dilated. 2. Hepatic steatosis. No discrete focal hepatic lesions identified. 3. No other significant right upper quadrant ultrasound findings and there is no ascites. DATA REPOSITORY:
== END ==
PROVIDERS: PCP Family Medicine; Visit Provider Physician Assistant
DX: R10.11 Right upper quadrant pain (principal); K76.0 Fatty (change of) liver, not elsewhere classified; Z90.49 Acquired absence of other specified parts of digestive tract
CPT/HCPCS: 76705

== ENCOUNTER 2024-01-04 13:39 | Emergency (ER) | payer OTHER, MEDICAID, SELFPAY ==
[2024-01-04 13:41] VITALS: BP 132/86; PULSE 116; RESP 18; TEMP 37.3; O2SAT 98
[2024-01-04 13:55] VITALS: RESP 18
--- NOTE | 2024-01-04 14:05 | ED.GENADUL_ITS ---
Discharge Plan Disposition Patient Disposition: Home Condition: Stable Discharge Details Clinical Impression: Severe anxiety with panic Primary Care Provider: Brendon Vivar ED Provider: Jeovany Elias Home Meds and New Rx's Prescriptions: No Action gabapentin 300 mg capsule 300 mg PO BID Qty: 180 3RF clonazepam 1 mg tablet 1 mg PO BID Qty: 56 1RF cyclobenzaprine 10 mg tablet 10 mg PO TID PRN (Reason: muscle spasm) Qty: 30 3RF methadone 10 mg/5 mL solution 105 mg PO QAM calcitriol 0.5 mcg capsule 0.5 mcg PO BID Qty: 360 3RF polyethylene glycol 3350 17 gram/dose powder 17 g PO DAILY PRN omeprazole 40 mg capsule,delayed release(DR/EC) 40 mg PO DAILY Qty: 90 3RF famotidine 20 mg tablet 20 mg PO BID calcium carbonate [Tums] 200 mg calcium (500 mg) tablet,chewable 2,000 mg PO BID prochlorperazine maleate 5 mg tablet 5 mg PO TID PRN (Reason: acute nausea) Qty: 30 0RF diclofenac sodium 1 % gel 4 g topical QID PRN Rx Instructions: apply to single knee, ankle, foot; for foot includes sole/toes/top of foot ondansetron 4 mg tablet,disintegrating 4 mg PO Q6H PRN (Reason: nausea and vomiting) Qty: 20 0RF simethicone 125 mg tablet,chewable 125 mg PO QID PRN (Reason: abdominal distention) Qty: 20 0RF magnesium gluconate 27 mg magnesium (500 mg) tablet 13.5 mg PO TID Qty: 60 3RF Discharge Instructions Instructions: Panic Attack ED Additional Instructions: Please follow-up with your primary care physician to have medications adjusted as needed. HPI General Date/Time Provider Initiated Documentation: 01/04/24 14:04 . Limitations to Documentation: no limitations . Information obtained by: patient . HPI Narrative: 28-year-old gentleman with multiple medical comorbidities including severe anxiety presents for evaluation during a panic attack. He reports acute onset of this panic symptoms including severe severe fear and tearfulness. He states that he was hanging out with his friends and they were shooting guns and this triggered his PTSD symptoms. he did not try any medication for relief. He reports this is similar to prior panic attacks and that he just feels very scared. he said he's usually able to handle shooting guns and he's not sure what he became triggered today. otherwise he's doing well. Denies any SI/HI. Reports compliance with medications. Related Data Home Medications ?Medication ?Instructions ?Recorded ?Confirmed calcium carbonate (Tums) 2,000 mg PO BID 02/02/23 01/04/24 calcitriol 0.5 mcg capsule 0.5 mcg PO BID #360 caps 04/21/23 01/04/24 methadone 10 mg/5 mL oral solution 105 mg PO QAM 06/12/23 01/04/24 polyethylene glycol 3350 17 17 g PO DAILY PRN 06/12/23 01/04/24 gram/dose oral powder gabapentin 300 mg capsule 300 mg PO BID #180 caps 06/23/23 01/04/24 omeprazole 40 mg capsule,delayed 40 mg PO DAILY #90 caps 07/21/23 01/04/24 release prochlorperazine maleate 5 mg 5 mg PO TID PRN acute nausea #30 09/06/23 01/04/24 tablet tabs simethicone 125 mg chewable tablet 125 mg PO QID PRN abdominal 10/30/23 01/04/24 distention #20 tabs magnesium gluconate 27 mg 13.5 mg (1/2 x 27 mg magnesium 11/21/23 01/04/24 magnesium (500 mg) tablet (500 mg)) PO TID #60 tabs famotidine 20 mg tablet 20 mg PO BID 11/24/23 01/04/24 clonazepam 1 mg tablet 1 mg PO BID #56 tabs 12/04/23 01/04/24 cyclobenzaprine 10 mg tablet 10 mg PO TID PRN muscle spasm #30 12/04/23 01/04/24 tabs diclofenac sodium 1 % topical gel 4 g topical QID PRN 12/15/23 01/04/24 ondansetron 4 mg disintegrating 4 mg PO Q6H PRN nausea and 12/15/23 01/04/24 tablet vomiting #20 tabs Previous Rx's ?Medication ?Instructions ?Recorded calcitriol 0.5 mcg capsule 0.5 mcg PO BID #360 caps 04/21/23 gabapentin 300 mg capsule 300 mg PO BID #180 caps 06/23/23 omeprazole 40 mg capsule,delayed 40 mg PO DAILY #90 caps 02/05/24 release prochlorperazine maleate 5 mg 5 mg PO TID PRN acute nausea #30 09/06/23 tablet tabs simethicone 125 mg chewable tablet 125 mg PO QID PRN abdominal 10/30/23 distention #20 tabs magnesium gluconate 27 mg 13.5 mg (1/2 x 27 mg magnesium 11/21/23 magnesium (500 mg) tablet (500 mg)) PO TID #60 tabs clonazepam 1 mg tablet 1 mg PO BID #56 tabs 12/04/23 cyclobenzaprine 10 mg tablet 10 mg PO TID PRN muscle spasm #30 12/04/23 tabs ondansetron 4 mg disintegrating 4 mg PO Q6H PRN nausea and 12/15/23 tablet vomiting #20 tabs Allergies Allergy/AdvReac Type Severity Reaction Status Date / Time codeine Allergy Intermediate pass out Verified 01/04/24 13:44 Penicillins Allergy Skin Rash Verified 01/04/24 13:44 amoxicillin AdvReac Intermediate Nausea Verified 01/04/24 13:44 dextromethorphan (From AdvReac Intermediate Other (See Verified 01/04/24 13:44 NyQuil) Comment) doxylamine (From NyQuil) AdvReac Intermediate Other (See Verified 01/04/24 13:44 Comment) pseudoephedrine (From NyQuil) AdvReac Intermediate Other (See Verified 01/04/24 13:44 Comment) General Stated Complaint: Anxiety ADRIANA: 4 Exam Narrative Exam Narrative: Review of Systems: All systems reviewed & are unremarkable except as noted in HPI and below Well-developed, crying NCAT PERRL, normal conjunctiva tachycardia Unlabored respiratory effort Nondistended abdomen Extremities w/o deformity, no cyanosis, no edema No rashes or lesions. no focal neurologic deficits tearful, anxious, no SI/HI Course Vital Signs Vital signs: Vital Signs Temperature 37.3 C 01/04/24 13:41 Pulse 116 H 01/04/24 13:41 Respiratory Rate 18 01/04/24 13:41 Blood Pressure 132/86 01/04/24 13:41 Pulse Oximetry 98 01/04/24 13:41 Temperature 37.3 C 01/04/24 13:41 Temperature Source Skin 01/04/24 13:41 Pulse 116 H 01/04/24 13:41 Respiratory Rate 18 01/04/24 13:55 Respiratory Effort Normal 01/04/24 13:55 Respiratory Depth Normal 01/04/24 13:55 Respiratory Pattern Normal 01/04/24 13:55 Blood Pressure 132/86 01/04/24 13:41 Blood Pressure Position Sitting 01/04/24 13:41 Pulse Oximetry 98 01/04/24 13:41 Oxygen Delivery Method Room Air 01/04/24 13:41 Oxygen Flow Rate 0 01/04/24 13:41 Pain Level 0 01/04/24 13:41 Medical Decision Making Emergent evaluation of panic attack. Patient has longstanding history. At this time there is no SI or HI or any concerns indicating a need for involuntary psychiatric evaluation. The patient does not request voluntary placement or need to discuss with mental health services. Will give medications for acute treatment of panic attack and reassess. 1500 Patient has responded nicely to the Valium and reports that he does not feel as scared anymore. He feels comfortable going home. Recommend that he follow-up with his PCP so that he can have medications adjusted as needed or per be pr ovided medication for acute panic treatment. Medical Records Medical records reviewed: Yes I reviewed the patient's medical records. Quality:SDOH Health Related Social Needs: Health related social needs transpo insecurity PFSH All Active Problems (Updated 01/04/24 @ 15:01 by Jeovany Elias MD) Chronic abdominal pain (Acute) Hypocalcemia (Acute) Insect bite of leg, right (Acute) Superficial incisional surgical site infection (Acute) Paresthesia (Acute) Testicle lump (Acute) Hamstring tendinitis of left thigh (Acute) Pes anserine bursitis (Acute) Hypernatremia (Acute) Cervical radiculopathy (Acute) Left-sided Flower's palsy (Acute) Constipation (Acute) Grief reaction (Chronic) Opiate dependence, continuous (Acute) 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 Possible 2' Methadone, Clnzpm (?). Surg eval (+)/No further action. History of electrolyte imbalance (Acute) Neck pain on left side (Acute) with shoulder, upper back pain.. torticollis, radiating into left hip/leg Pulmonary nodule 1 cm or greater in diameter (Chronic) Therapeutic opioid induced constipation (Acute) Sphincter of Oddi dysfunction (Chronic) Abnormal CT scan, kidney (Acute) Intrahepatic bile duct dilation (Acute) Common bile duct dilatation (Chronic) Has been dilated for quite some time, now more-so. Normal LFTs. Known gallstones. Iatrogenic hypocalcemia (Acute) Multiple endocrine neoplasia type I (Chronic) Depression (Chronic) Hypocalcemia (Chronic) Elevated parathyroid hormone (Acute) Family history of coronary arteriosclerosis (Chronic) Father of AL at 50, mother had AL at 42 Severe anxiety with panic (Chronic) Medical History CKD (chronic kidney disease) stage 2, GFR 60-89 ml/min GFR 64-65, with Hx FLORESITA and GFR < 45 Primary hyperparathyroidism Complex medical condition Serious electrolyte imbalances, with gynecomastia, possible MEN Dx, CKD and anemia with baseline anxiety and Hx PTSD. Hypocalcemia Anxiety Depression Hyperlipidemia Family history of multiple endocrine neoplasia, type 1 PTSD (post-traumatic stress disorder) Per pt. states no triggers at this time. Surgical History History of laparoscopic cholecystectomy (~11/2023) H/O parathyroidectomy Family History Mother Anxiety Asthma Depression Sister Anxiety Depression Father Cancer lung & stomach Depression Diabetes Hypertension MEN 1 (multiple endocrine neoplasia) Social History Smoking/Tobacco Use Status: Never Smoking risk assessment performed?: Yes Alcohol Intake: never Drug use: Current Sobriety Substance use type: former substance user Adopted: No Caregiver/Support person: No Foster care: No Household members: none Housing: apartment Number of Children: 0 Communication Needs: None Education Level: high school Do you need help understanding health information?: Never 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[employer] Pets and animals: Yes (Ally) Pets and animals: dog(s) Sexually active: No Do you think of yourself as: straight/heterosexual Current gender identity: male What is your relationship status?: How often do you talk on the phone with friends or family?: twice per week How often do you get together with friends or relatives?: never Do you belong to any clubs or organized social groups?: no Panel score (0-1 are the most socially isolated patients): 0 What type of physical activity do you participate in: walking Duration: 15-30 minutes/day Frequency: 5-6 times per week Maryam/Christianity: Restorationist Special maryam needs: No Seatbelt use: always Helmet use: Yes Helmet use: always Drive intox or ride w/intox 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
[2024-01-04] MEDS: diazePAM 5 MG TAB 10 MG PO (14:11)
--- NOTE | 2024-01-04 14:45 | NUR.NOTE ---
Nursing Note: patient told this RN that he feels more calm in his body and mind after taking medication as order by provider
== END 2024-01-04 15:08 | disposition home or self-care (01) ==
PROVIDERS: Emergency Provider Emergency Medicine; PCP Family Medicine
DX: F41.9 Anxiety disorder, unspecified (principal); F41.0 Panic disorder [episodic paroxysmal anxiety]; F43.10 Post-traumatic stress disorder, unspecified; E21.0 Primary hyperparathyroidism; E78.5 Hyperlipidemia, unspecified
CPT/HCPCS: 99283

== ENCOUNTER 2024-01-12 15:54 | Emergency (ER) | payer OTHER, MEDICAID, SELFPAY ==
[2024-01-12] VITALS (19 sets, daily range): BP systolic 121–126; BP diastolic 68–99; PULSE 74–132; RESP 12–28; TEMP 37; O2SAT 95–97
--- NOTE | 2024-01-12 16:00 | RT.EKG_ITS ---
APPROVED REPORT Exam: Resting ECG Reason for Exam: chest pain Patient Location: E HR:123 bpm ECG Measurements Heart Rate 123 AXIS IA 161 P 51 QRSd 94 QRS 32 QT 317 T 22 QTc 456 Conclusion Sinus tachycardia...rate> 99 sinus tachycardua, normal axis, normal intervals, non ischemic
--- NOTE | 2024-01-12 16:26 | ED.GENADUL_ITS ---
Discharge Plan Disposition Patient Disposition: Home Condition: Improving Discharge Details Chief Complaint: Chest Pain Clinical Impression: Hypocalcemia, Hypomagnesemia Primary Care Provider: Brendon Vivar ED Provider: Ajay Kennedy Home Meds and New Rx's Prescriptions: No Action gabapentin 300 mg capsule 300 mg PO BID Qty: 180 3RF clonazepam 1 mg tablet 1 mg PO BID Qty: 56 1RF cyclobenzaprine 10 mg tablet 10 mg PO TID PRN (Reason: muscle spasm) Qty: 30 3RF methadone 10 mg/5 mL solution 105 mg PO QAM calcitriol 0.5 mcg capsule 0.5 mcg PO BID Qty: 360 3RF polyethylene glycol 3350 17 gram/dose powder 17 g PO DAILY PRN omeprazole 40 mg capsule,delayed release(DR/EC) 40 mg PO DAILY Qty: 90 3RF famotidine 20 mg tablet 20 mg PO BID calcium carbonate [Tums] 200 mg calcium (500 mg) tablet,chewable 2,000 mg PO BID prochlorperazine maleate 5 mg tablet 5 mg PO TID PRN (Reason: acute nausea) Qty: 30 0RF diclofenac sodium 1 % gel 4 g topical QID PRN Rx Instructions: apply to single knee, ankle, foot; for foot includes sole/toes/top of foot ondansetron 4 mg tablet,disintegrating 4 mg PO Q6H PRN (Reason: nausea and vomiting) Qty: 20 0RF simethicone 125 mg tablet,chewable 125 mg PO QID PRN (Reason: abdominal distention) Qty: 20 0RF magnesium gluconate 27 mg magnesium (500 mg) tablet 13.5 mg PO TID Qty: 60 3RF Discharge Instructions Instructions: Hypocalcemia, Low Magnesium Level HPI General Date/Time Provider Initiated Documentation: 01/12/24 16:13 . HPI Narrative: 28-year-old male history of hypocalcemia hypomagnesemia presents with fatigue shakiness numbness to fingertips over the last day, chronic recurrent calcium and magnesium issues, recently increased supplementation. Symptoms consistent with prior electrolyte derangement per patient. Related Data Home Medications ?Medication ?Instructions ?Recorded ?Confirmed calcium carbonate (Tums) 2,000 mg PO BID 02/02/23 01/04/24 calcitriol 0.5 mcg capsule 0.5 mcg PO BID #360 caps 04/21/23 01/04/24 methadone 10 mg/5 mL oral solution 105 mg PO QAM 06/12/23 01/04/24 polyethylene glycol 3350 17 17 g PO DAILY PRN 06/12/23 01/04/24 gram/dose oral powder gabapentin 300 mg capsule 300 mg PO BID #180 caps 06/23/23 01/04/24 omeprazole 40 mg capsule,delayed 40 mg PO DAILY #90 caps 07/21/23 01/04/24 release prochlorperazine maleate 5 mg 5 mg PO TID PRN acute nausea #30 09/06/23 01/04/24 tablet tabs simethicone 125 mg chewable tablet 125 mg PO QID PRN abdominal 10/30/23 01/04/24 distention #20 tabs magnesium gluconate 27 mg 13.5 mg (1/2 x 27 mg magnesium 11/21/23 01/04/24 magnesium (500 mg) tablet (500 mg)) PO TID #60 tabs famotidine 20 mg tablet 20 mg PO BID 11/24/23 01/04/24 clonazepam 1 mg tablet 1 mg PO BID #56 tabs 12/04/23 01/04/24 cyclobenzaprine 10 mg tablet 10 mg PO TID PRN muscle spasm #30 12/04/23 01/04/24 tabs diclofenac sodium 1 % topical gel 4 g topical QID PRN 12/15/23 01/04/24 ondansetron 4 mg disintegrating 4 mg PO Q6H PRN nausea and 12/15/23 01/04/24 tablet vomiting #20 tabs Previous Rx's ?Medication ?Instructions ?Recorded calcitriol 0.5 mcg capsule 0.5 mcg PO BID #360 caps 04/21/23 gabapentin 300 mg capsule 300 mg PO BID #180 caps 06/23/23 omeprazole 40 mg capsule,delayed 40 mg PO DAILY #90 caps 07/21/23 release prochlorperazine maleate 5 mg 5 mg PO TID PRN acute nausea #30 09/06/23 tablet tabs simethicone 125 mg chewable tablet 125 mg PO QID PRN abdominal 10/30/23 distention #20 tabs magnesium gluconate 27 mg 13.5 mg (1/2 x 27 mg magnesium 11/21/23 magnesium (500 mg) tablet (500 mg)) PO TID #60 tabs clonazepam 1 mg tablet 1 mg PO BID #56 tabs 12/04/23 cyclobenzaprine 10 mg tablet 10 mg PO TID PRN muscle spasm #30 12/04/23 tabs ondansetron 4 mg disintegrating 4 mg PO Q6H PRN nausea and 12/15/23 tablet vomiting #20 tabs Allergies Allergy/AdvReac Type Severity Reaction Status Date / Time codeine Allergy Intermediate pass out Verified 01/04/24 13:44 Penicillins Allergy Skin Rash Verified 01/04/24 13:44 amoxicillin AdvReac Intermediate Nausea Verified 01/04/24 13:44 dextromethorphan (From AdvReac Intermediate Other (See Verified 01/04/24 13:44 NyQuil) Comment) doxylamine (From NyQuil) AdvReac Intermediate Other (See Verified 01/04/24 13:44 Comment) pseudoephedrine (From NyQuil) AdvReac Intermediate Other (See Verified 01/04/24 13:44 Comment) General Stated Complaint: Chest Pain ADRIANA: 2 Exam Narrative Exam Narrative: Alert oriented interactive no acute distress Tongue secretions normal voice Heart sounds normal no murmurs rubs or gallop; tachycardia Lungs clear bilaterally no wheezes rales or rhonchi Moving all extremities without deficit alert oriented full strength ambulatory no ataxia Course Vital Signs Vital signs: Vital Signs Temperature 37.0 C 01/12/24 16:00 Pulse 132 H 01/12/24 16:00 Respiratory Rate 18 01/12/24 16:00 Blood Pressure 124/99 H 01/12/24 16:00 Pulse Oximetry 95 01/12/24 16:00 Temperature 37.0 C 01/12/24 16:00 Temperature Source Skin 01/12/24 16:00 Pulse 132 H 01/12/24 16:00 Respiratory Rate 18 01/12/24 16:00 Blood Pressure 124/99 H 01/12/24 16:00 Blood Pressure Position Sitting 01/12/24 16:00 Pulse Oximetry 95 01/12/24 16:00 Oxygen Delivery Method Room Air 01/12/24 16:00 Oxygen Flow Rate 0 01/12/24 16:00 Pain Level 2 01/12/24 16:00 Medical Decision Making 28-year-old male history of hypocalcemia hypomagnesemia presents with fatigue shakiness numbness to fingertips over the last day, chronic recurrent calcium and magnesium issues, recently increased supplementation. Symptoms consistent with prior electrolyte derangement per patient. Patient noted to be tachycardic on arrival sinus tachycardia on EKG without ischemic changes. Not hypoxic no tachypnea no shortness of breath lower suspicion for thromboembolic disease, consider dehydration versus hypocalcemia versus hypomagnesemia versus other electrolyte derangement, lower suspicion for ACS pneumonia or other bacterial infection. Screening labs fluids close reassessment will replete electrolytes as appropriate. Heart rate has decreased on its own to 90 bpm on monitor. Remains normotensive not hypoxic nontoxic afebrile 18: 22 patient rest comfortably no acute distress. Feeling much better after fluids and electrolyte repletion. Patient will follow with primary care physician Quality:SDOH Health Related Social Needs: Health related social needs transpo insecurity PFSH All Active Problems (Updated 01/12/24 @ 18:23 by Ajay Kennedy MD) Hypomagnesemia (Acute) Hypocalcemia (Acute) Chronic abdominal pain (Acute) Hypocalcemia (Acute) Insect bite of leg, right (Acute) Testicle lump (Acute) Hamstring tendinitis of left thigh (Acute) Pes anserine bursitis (Acute) Hypernatremia (Acute) Cervical radiculopathy (Acute) Left-sided Flower's palsy (Acute) Constipation (Acute) Grief reaction (Chronic) Opiate dependence, continuous (Acute) 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 Possible 2' Methadone, Clnzpm (?). Surg eval (+)/No further action. History of electrolyte imbalance (Acute) Neck pain on left side (Acute) with shoulder, upper back pain.. torticollis, radiating into left hip/leg Pulmonary nodule 1 cm or greater in diameter (Chronic) Therapeutic opioid induced constipation (Acute) Sphincter of Oddi dysfunction (Chronic) Abnormal CT scan, kidney (Acute) Intrahepatic bile duct dilation (Acute) Common bile duct dilatation (Chronic) Has been dilated for quite some time, now more-so. Normal LFTs. Known gallstones. Iatrogenic hypocalcemia (Acute) Multiple endocrine neoplasia type I (Chronic) Depression (Chronic) Hypocalcemia (Chronic) Elevated parathyroid hormone (Acute) Family history of coronary arteriosclerosis (Chronic) Father of [place] at 50, mother had MO at 42 Severe anxiety with panic (Chronic) Medical History CKD (chronic kidney disease) stage 2, GFR 60-89 ml/min GFR 64-65, with Hx FLORESITA and GFR < 45 Primary hyperparathyroidism Complex medical condition Serious electrolyte imbalances, with gynecomastia, possible MEN Dx, CKD and anemia with baseline anxiety and Hx PTSD. Hypocalcemia Anxiety Depression Hyperlipidemia Family history of multiple endocrine neoplasia, type 1 PTSD (post-traumatic stress disorder) Per pt. states no triggers at this time. Surgical History History of laparoscopic cholecystectomy (~11/2023) H/O parathyroidectomy Family History Mother Anxiety Asthma Depression Sister Anxiety Depression Father Cancer lung & stomach Depression Diabetes Hypertension MEN 1 (multiple endocrine neoplasia) Social History Smoking/Tobacco Use Status: Never Smoking risk assessment performed?: Yes Alcohol Intake: never Drug use: Current Sobriety Substance use type: former substance user Adopted: No Caregiver/Support person: No Foster care: No Household members: none Housing: apartment Number of Children: 0 Communication Needs: None Education Level: high school Do you need help understanding health information?: Never 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 and animals: Yes (Ally) Pets and animals: dog(s) Sexually active: No Do you think of yourself as: straight/heterosexual Current gender identity: male What is your relationship status?: How often do you talk on the phone with friends or family?: twice per week How often do you get together with friends or relatives?: never Do you belong to any clubs or organized social groups?: no Panel score (0-1 are the most socially isolated patients): 0 What type of physical activity do you participate in: walking Duration: 15-30 minutes/day Frequency: 5-6 times per week Maryam/Pentecostal: Hinduism Special maryam needs: No Seatbelt use: always Helmet use: Yes Helmet use: always Drive intox or ride w/intox 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
[2024-01-12 16:27] LABS: Abs Immature Grans 0.02 10^3/uL (0.0-0.06); Absolute Basophil Count 0.06 10^3/uL (0.0-0.2); Absolute Lymphocyte Count 2.21 10^3/uL (1.2-3.4); Absolute Monocyte Count 0.87 10^3/uL (0.1-0.8); Absolute Neutrophil Count 3.24 10^3/uL (1.2-6.7); Basophils % 0.9 %; Eosinophils % 5.9 %; HCT 34.8 % (40.0-50.0); HGB 11.2 g/dL (13.5-17.5); Immature Grans % 0.3 %; Lymphocytes % 32.5 %; MCH 27.2 pg (27.0-33.0); MCHC 32.2 % (32.0-36.0); MCV 85 fL (80-95); MPV 9.5 fL (8.0-11.0); Monocytes % 12.8 %; Neutrophils % 47.6 %; Platelet Count 286 10^3/uL (130-400); RBC 4.12 10^6/uL (4.36-5.78); RDW 13.1 % (11.8-14.1); RDW-SD 39.9 fL
[2024-01-12 16:40] LABS: ALT 131 U/L (16-63); AST 49 U/L (15-37); Albumin 2.9 g/dL (3.4-5.0); Alkaline Phosphatase 209 U/L (46-116); Anion Gap 7.6 mmol/L (3-11); BUN 15 mg/dL (7-18); Bilirubin, Total 0.19 mg/dL (0.2-1.0); CO2 32.4 mmol/L (21.0-32.0); CREATININE 1.2 mg/dL (0.70-1.30); Calcium 7.5 mg/dL (8.5-10.1); Chloride 102 mmol/L (98-107); Estimated GFR 83.43 (mL/min/1.73m2); Glucose 120 mg/dL (74-106); Magnesium 1.7 mg/dL (1.8-2.4); Potassium 3.3 mmol/L (3.5-5.1); Sodium 142 mmol/L (136-145); Total Protein 7.3 g/dL (6.4-8.2)
[2024-01-12] MEDS: Normal Saline 1,000 ML 1000 ML IV (16:52)
[2024-01-12] MEDS: MAGNESIUM SULFATE 1 GM/100 ML BAG IVINF (17:04)
[2024-01-12] MEDS: CALCIUM GLUCONATE in NaCl 1 GM/50 ML BAG IVPB (18:04)
== END 2024-01-12 18:42 | disposition home or self-care (01) ==
PROVIDERS: Emergency Provider Emergency Medicine; PCP Family Medicine
DX: E83.51 Hypocalcemia (principal); E83.42 Hypomagnesemia; E21.0 Primary hyperparathyroidism; E78.5 Hyperlipidemia, unspecified; N18.2 Chronic kidney disease, stage 2 (mild)
CPT/HCPCS: 36415; 80053; 93005; 96365; 96367; 99284; 83735; 85025; 93010; 99283; J0613; J3475

== ENCOUNTER 2024-02-01 23:30 | Emergency (ER) | payer MEDICAID, SELFPAY ==
[2024-02-01 23:34] VITALS: BP 145/104; PULSE 109; RESP 20; TEMP 37; O2SAT 99
--- NOTE | 2024-02-01 23:40 | W.ED.GENAD ---
Discharge Plan Disposition Patient Disposition: Home Condition: Good Discharge Details Clinical Impression: Hypomagnesemia Primary Care Provider: Brendon Vivar ED Provider: Richy Eagle Home Meds and New Rx's Prescriptions: New azithromycin 250 mg tablet See Rx Instructions .ROUTE .COMPLEX Qty: 6 0RF Rx Instructions: For 250 mg dose pack: take 500 mg today (day 1), then 250 mg for 4 days (days 2-5) No Action gabapentin 300 mg capsule 300 mg PO BID Qty: 180 3RF clonazepam 1 mg tablet 1 mg PO BID Qty: 56 1RF cyclobenzaprine 10 mg tablet 10 mg PO TID PRN (Reason: muscle spasm) Qty: 30 3RF methadone 10 mg/5 mL solution 105 mg PO QAM polyethylene glycol 3350 17 gram/dose powder 17 g PO DAILY PRN omeprazole 40 mg capsule,delayed release(DR/EC) 40 mg PO DAILY Qty: 90 3RF famotidine 20 mg tablet 20 mg PO BID calcium carbonate [Tums] 200 mg calcium (500 mg) tablet,chewable 2,000 mg PO BID prochlorperazine maleate 5 mg tablet 5 mg PO TID PRN (Reason: acute nausea) Qty: 30 0RF diclofenac sodium 1 % gel 4 g topical QID PRN Rx Instructions: apply to single knee, ankle, foot; for foot includes sole/toes/top of foot ondansetron 4 mg tablet,disintegrating 4 mg PO Q6H PRN (Reason: nausea and vomiting) Qty: 20 0RF calcitriol 0.5 mcg capsule 1 mcg PO BID simethicone 125 mg tablet,chewable 125 mg PO QID PRN (Reason: abdominal distention) Qty: 20 0RF magnesium gluconate 27 mg magnesium (500 mg) tablet 13.5 mg PO TID Qty: 60 3RF Discharge Instructions Instructions: Hypomagnesemia Additional Instructions: Please continue your home medications. Please follow-up closely with your hop farmer. If you do notice worsening of left ear pain or cough over the next 48 hours, please start the antibiotic as prescribed. If you notice any worsening of your symptoms, or any new symptoms such as vomiting, diarrhea, fever, chills, shortness of breath, chest pain, numbness, weakness, or fainting , please return immediately to the emergency department for reevaluation. Please follow up with your primary care provider as soon as possible for reassessment and reevaluation. As always, it was a pleasure participating in your medical care today. Referrals: Brendon Vivar DO [Primary Care Provider] - [facility] General Date/Time Provider Initiated Documentation: 02/01/24 23:36. HPI Narrative: This is a 28-year-old male with a past medical history significant for anxiety, depression, high cholesterol, men type I, multiple electrolyte abnormalities with subsequent parathyroidectomy on 03/26/2022 at [facility], PTSD, GERD who recently had his calcitriol and ion supplemental medications increased over the last few weeks, who presents today for symptoms of tingling in his finger and spasms in his hands. Symptoms appear consistent when his magnesium and electrolytes have been off in the past. He states that symptoms began earlier today. And so he took an extra calcitriol, and few thousand extra milligrams of Tums. Symptoms have continued though. He feels weak tingly and slightly tremulous. He denies fever or chills. He does admit to a mild chronic cough. He denies any hemoptysis. He denies any ear head or neck pain. No other complaints at this time. Related Data Home Medications ?Medication ?Instructions ?Recorded ?Confirmed calcium carbonate (Tums) 2,000 mg PO BID 02/02/23 02/01/24 methadone 10 mg/5 mL oral solution 105 mg PO QAM 06/12/23 02/01/24 polyethylene glycol 3350 17 17 g PO DAILY PRN 06/12/23 02/01/24 gram/dose oral powder gabapentin 300 mg capsule 300 mg PO BID #180 caps 06/23/23 02/01/24 omeprazole 40 mg capsule,delayed 40 mg PO DAILY #90 caps 07/21/23 02/01/24 release prochlorperazine maleate 5 mg 5 mg PO TID PRN acute nausea #30 09/06/23 02/01/24 tablet tabs simethicone 125 mg chewable tablet 125 mg PO QID PRN abdominal 10/30/23 02/01/24 distention #20 tabs magnesium gluconate 27 mg 13.5 mg (1/2 x 27 mg magnesium 11/21/23 02/01/24 magnesium (500 mg) tablet (500 mg)) PO TID #60 tabs famotidine 20 mg tablet 20 mg PO BID 11/24/23 02/01/24 clonazepam 1 mg tablet 1 mg PO BID #56 tabs 12/04/23 02/01/24 cyclobenzaprine 10 mg tablet 10 mg PO TID PRN muscle spasm #30 12/04/23 02/01/24 tabs diclofenac sodium 1 % topical gel 4 g topical QID PRN 12/15/23 02/01/24 ondansetron 4 mg disintegrating 4 mg PO Q6H PRN nausea and 12/15/23 02/01/24 tablet vomiting #20 tabs calcitriol 0.5 mcg capsule 1 mcg PO BID 02/01/24 02/01/24 azithromycin 250 mg tablet See Rx Instructions PO .COMPLEX #6 02/02/24 tabs Previous Rx's ?Medication ?Instructions ?Recorded gabapentin 300 mg capsule 300 mg PO BID #180 caps 06/23/23 omeprazole 40 mg capsule,delayed 40 mg PO DAILY #90 caps 07/21/23 release prochlorperazine maleate 5 mg 5 mg PO TID PRN acute nausea #30 09/06/23 tablet tabs simethicone 125 mg chewable tablet 125 mg PO QID PRN abdominal 10/30/23 distention #20 tabs magnesium gluconate 27 mg 13.5 mg (1/2 x 27 mg magnesium 11/21/23 magnesium (500 mg) tablet (500 mg)) PO TID #60 tabs clonazepam 1 mg tablet 1 mg PO BID #56 tabs 12/04/23 cyclobenzaprine 10 mg tablet 10 mg PO TID PRN muscle spasm #30 12/04/23 tabs ondansetron 4 mg disintegrating 4 mg PO Q6H PRN nausea and 12/15/23 tablet vomiting #20 tabs azithromycin 250 mg tablet See Rx Instructions PO .COMPLEX #6 02/02/24 tabs Allergies Allergy/AdvReac Type Severity Reaction Status Date / Time codeine Allergy Intermediate pass out Verified 02/01/24 23:36 Penicillins Allergy Skin Rash Verified 02/01/24 23:36 amoxicillin AdvReac Intermediate Nausea Verified 02/01/24 23:36 dextromethorphan (From AdvReac Intermediate Other (See Verified 02/01/24 23:36 NyQuil) Comment) doxylamine (From NyQuil) AdvReac Intermediate Other (See Verified 02/01/24 23:36 Comment) pseudoephedrine (From NyQuil) AdvReac Intermediate Other (See Verified 02/01/24 23:36 Comment) General Stated Complaint: GenMedical ADRIANA: 3 Review of Systems All systems reviewed & are unremarkable except as noted in HPI and below Exam Narrative Exam Narrative: 1.Const: Well-nourished, Well-developed, appearing stated age 2.Eyes: PERRL, no conjunctival injection, and symmetrical lids. 3.ENT: Atraumatic external nose and ears. Dry MM. Neck: Symmetric, trachea midline, No thyromegaly. Mild effusion noted in the left ear. No bulging or rupture. 4.CVS: +S1/S2, No murmurs or gallops. Peripheral pulses 2+ and equal in all extremities. Brisk capillary refill in all extremities. 5.RESP: Unlabored respiratory effort. Clear to auscultation bilaterally. No wheezes rales or rhonchi 6.GI: Soft, Nontender/Nondistended, No hepatosplenomegaly. No guarding or rebound. 7.MSK: Normocephalic/Atraumatic, Extremities w/o deformity or ttp No cyanosis or clubbing, Normal movement of all extremities. Minimal tremulousness. Negative Chvostek sign Trousseau sign. 8.Skin: Warm, Dry. No rashes or lesions. 9.Neuro: spike machine heater II-XII grossly intact. Sensation grossly intact, no focal neurologic deficits. 10.Psych: (AAO) x3. Appropriate mood and affect Course Vital Signs Vital signs: Vital Signs Temperature 37.0 C 02/01/24 23:34 Pulse 109 H 02/01/24 23:34 Respiratory Rate 20 02/01/24 23:34 Blood Pressure 145/104 H 02/01/24 23:34 Pulse Oximetry 99 02/01/24 23:34 Temperature 37.0 C 02/01/24 23:34 Temperature Source Tympanic 02/01/24 23:34 Pulse 109 H 02/01/24 23:34 Respiratory Rate 20 02/01/24 23:34 Blood Pressure 145/104 H 02/01/24 23:34 Blood Pressure Position Sitting 02/01/24 23:34 Pulse Oximetry 99 02/01/24 23:34 Oxygen Delivery Method Room Air 02/01/24 23:34 Oxygen Flow Rate 0 02/01/24 23:34 Pain Level 0 02/01/24 23:34 Medical Decision Making This is a 28-year-old male with a past medical history significant for anxiety, depression, high cholesterol, men type I, multiple electrolyte abnormalities with subsequent parathyroidectomy on 03/26/2022 at [facility], PTSD, GERD who recently had his calcitriol and ion supplemental medications increased over the last few weeks, who presents today for symptoms of tingling in his finger and spasms in his hands. Symptoms appear consistent when his magnesium and electrolytes have been off in the past. He states that symptoms began earlier today. And so he took an extra calcitriol, and few thousand extra milligrams of Tums. Symptoms have continued though. He feels weak tingly and slightly tremulous. He denies fever or chills. He does admit to a mild chronic cough. He denies any hemoptysis. He denies any ear head or neck pain. No other complaints at this time. Exam demonstrates well-appearing male, mild tachycardia, negative show at 6 and Trousseau sign. Mild effusion in the left ear. Lungs are clear. No hypoxemia. Differential is highest for dehydration, electrolyte abnormality. Suspect mild viral upper respiratory infection causing mild effusion which at this point may be slightly bacterial. Will evaluate for electrolyte status, rehydrate, monitor closely and reassess. 2:11 AM Patient's blood work has returned, and he demonstrates evidence of mild hypomagnesemia. As well as borderline low calcium. Will replace both the calcium and the magnesium at this time. After replacement and fluids patient is feeling much better. He feels well and would like to go home. Will give prescription for azithromycin for home use for his ear if his symptoms worsen. Discussed red flags for which to return. I have extensively reviewed the treatment plan and discharge instructions with the patient. I have addressed all patient concerns at this time. The patient was made aware of what symptoms to monitor for that would warrant a return to the emergency department. Discussed the plan with the patient, they demonstrate verbal understanding and agreement with our assessment and plan at this time. The documentation in this chart was dictated using [employer] dictation software. Please excuse any dictation errors. 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 Possible 2' Methadone, Clnzpm (?). Surg eval (+)/No further action. History of electrolyte imbalance (Acute) Neck pain on left side (Acute) with shoulder, upper back pain.. torticollis, radiating into left hip/leg Pulmonary nodule 1 cm or greater in diameter (Chronic) Therapeutic opioid induced constipation (Acute) Sphincter of Oddi dysfunction (Chronic) Abnormal CT scan, kidney (Acute) Intrahepatic bile duct dilation (Acute) Common bile duct dilatation (Chronic) Has been dilated for quite some time, now more-so. Normal LFTs. Known gallstones. Iatrogenic hypocalcemia (Acute) Multiple endocrine neoplasia type I (Chronic) Depression (Chronic) Hypocalcemia (Chronic) Elevated parathyroid hormone (Acute) Family history of coronary arteriosclerosis (Chronic) Father of MT at 50, mother had MT at 42 Severe anxiety with panic (Chronic) Medical History CKD (chronic kidney disease) stage 2, GFR 60-89 ml/min GFR 64-65, with Hx FLORESITA and GFR < 45 Primary hyperparathyroidism Complex medical condition Serious electrolyte imbalances, with gynecomastia, possible MEN Dx, CKD and anemia with baseline anxiety and Hx PTSD. Hypocalcemia Anxiety Depression Hyperlipidemia Family history of multiple endocrine neoplasia, type 1 PTSD (post-traumatic stress disorder) Per pt. states no triggers at this time. Surgical History History of laparoscopic cholecystectomy (~11/2023) H/O parathyroidectomy Family History Mother Anxiety Asthma Depression Sister Anxiety Depression Father Cancer lung & stomach Depression Diabetes Hypertension MEN 1 (multiple endocrine neoplasia) Social History Smoking/Tobacco Use Status: Never Smoking risk assessment performed?: Yes Alcohol Intake: never Drug use: Current Sobriety Substance use type: former substance user Adopted: No Caregiver/Support person: No Foster care: No Household members: none Housing: apartment Number of Children: 0 Communication Needs: None Education Level: high school Do you need help understanding health information?: Never current occupation: [employer] Pets and animals: Yes (Ally) Pets and animals: dog(s) Sexually active: No Do you think of yourself as: straight/heterosexual Current gender identity: male What is your relationship status?: How often do you talk on the phone with friends or family?: twice per week How often do you get together with friends or relatives?: never Do you belong to any clubs or organized social groups?: no Panel score (0-1 are the most socially isolated patients): 0 What type of physical activity do you participate in: walking Duration: 15-30 minutes/day Frequency: 5-6 times per week Maryam/Gnosticism: Temple Special maryam needs: No Seatbelt use: always Helmet use: Yes Helmet use: always Drive intox or ride w/intox road 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
[2024-02-01 23:49] VITALS: BP 145/104; PULSE 109; RESP 15; RESP 20; TEMP 37; O2SAT 99
[2024-02-01] MEDS: Normal Saline 1,000 ML 1000 ML IV (23:51)
[2024-02-01 23:53] LABS: Abs Immature Grans 0.02 10^3/uL (0.0-0.06); Absolute Basophil Count 0.04 10^3/uL (0.0-0.2); Absolute Eosinophil Count 0.25 10^3/uL (0.0-0.7); Absolute Lymphocyte Count 2.69 10^3/uL (1.2-3.4); Absolute Monocyte Count 0.75 10^3/uL (0.1-0.8); Absolute Neutrophil Count 3.38 10^3/uL (1.2-6.7); Basophils % 0.6 %; Eosinophils % 3.5 %; HCT 37.2 % (40.0-50.0); HGB 11.8 g/dL (13.5-17.5); Immature Grans % 0.3 %; Lymphocytes % 37.7 %; MCH 27.3 pg (27.0-33.0); MCHC 31.7 % (32.0-36.0); MCV 86 fL (80-95); MPV 9.1 fL (8.0-11.0); Monocytes % 10.5 %; Neutrophils % 47.4 %; Platelet Count 327 10^3/uL (130-400); RBC 4.32 10^6/uL (4.36-5.78); RDW 13.7 % (11.8-14.1); RDW-SD 42.4 fL; WBC 7.13 10^3/uL (4.4-10.8)
[2024-02-02 00:10] LABS: ALT 74 U/L (16-63); AST 32 U/L (15-37); Albumin 3.1 g/dL (3.4-5.0); Alkaline Phosphatase 244 U/L (46-116); BUN 14 mg/dL (7-18); Bilirubin, Total 0.25 mg/dL (0.2-1.0); CREATININE 1.5 mg/dL (0.70-1.30); Calcium 8.7 mg/dL (8.5-10.1); Chloride 100 mmol/L (98-107); Estimated GFR 63.83 (mL/min/1.73m2); Glucose 104 mg/dL (74-106); Magnesium 1.5 mg/dL (1.8-2.4); Potassium 3.3 mmol/L (3.5-5.1); Sodium 141 mmol/L (136-145); Total Protein 7.9 g/dL (6.4-8.2)
[2024-02-02] MEDS: Calcium Gluconate 4.65 MEQ/10 ML VIAL 4.65 MG IVP (01:12)
[2024-02-02] MEDS: MAGNESIUM SULFATE 2 GM/50 ML BAG IVINF (01:23)
== END 2024-02-02 02:34 | disposition home or self-care (01) ==
PROVIDERS: Emergency Provider Student in an Organized Health Care Education/Training Program; PCP Family Medicine
DX: E83.42 Hypomagnesemia (principal)
CPT/HCPCS: 36415; 80053; 96361; 96365; 96375; 99284; 83735; 85025; 99283; J0612; J3475

== ENCOUNTER 2024-02-03 05:54 | Emergency (ER) | payer MEDICAID, SELFPAY ==
[2024-02-03 06:02] VITALS: BP 128/95; PULSE 110; RESP 16; TEMP 36.3; O2SAT 98
--- NOTE | 2024-02-03 06:08 | ED.GENADUL_ITS ---
Discharge Plan Disposition Patient Disposition: Home Condition: Good Discharge Details Clinical Impression: Anxiety Primary Care Provider: Brendon Vivar ED Provider: Richy Eagle Home Meds and New Rx's Prescriptions: No Action gabapentin 300 mg capsule 300 mg PO BID Qty: 180 3RF cyclobenzaprine 10 mg tablet 10 mg PO TID PRN (Reason: muscle spasm) Qty: 30 3RF methadone 10 mg/5 mL solution 105 mg PO QAM polyethylene glycol 3350 17 gram/dose powder 17 g PO DAILY PRN omeprazole 40 mg capsule,delayed release(DR/EC) 40 mg PO DAILY Qty: 90 3RF famotidine 20 mg tablet 20 mg PO BID clonazepam 1 mg tablet 1 mg PO BID Qty: 20 0RF calcium carbonate [Tums] 200 mg calcium (500 mg) tablet,chewable 2,000 mg PO BID prochlorperazine maleate 5 mg tablet 5 mg PO TID PRN (Reason: acute nausea) Qty: 30 0RF diclofenac sodium 1 % gel 4 g topical QID PRN Rx Instructions: apply to single knee, ankle, foot; for foot includes sole/toes/top of foot ondansetron 4 mg tablet,disintegrating 4 mg PO Q6H PRN (Reason: nausea and vomiting) Qty: 20 0RF calcitriol 0.5 mcg capsule 1 mcg PO BID azithromycin 250 mg tablet See Rx Instructions .ROUTE .COMPLEX Qty: 6 0RF Rx Instructions: For 250 mg dose pack: take 500 mg today (day 1), then 250 mg for 4 days (days 2-5) simethicone 125 mg tablet,chewable 125 mg PO QID PRN (Reason: abdominal distention) Qty: 20 0RF magnesium gluconate 27 mg magnesium (500 mg) tablet 13.5 mg PO TID Qty: 60 3RF Discharge Instructions Additional Instructions: As we discussed together, we are not able to prescribe or fill long-term anxiolytic or pain medications at the pharmacy. Please burr picker your prescription that was sent by your primary care provider at the pharmacy today at 930 when it will be available. If you notice any worsening of your symptoms, or any new symptoms such as vomiting, diarrhea, fever, chills, shortness of breath, chest pain, numbness, weakness, or fainting , please return immediately to the emergency department for reevaluation. Please follow up with your primary care provider as soon as possible for reassessment and reevaluation. As always, it was a pleasure participating in your medical care today. Referrals: Brendon Vivar DO [Primary Care Provider] - [facility] General Date/Time Provider Initiated Documentation: 02/03/24 06:07 . HPI Narrative: This is a 28-year-old male with a past medical history significant for anxiety, depression, high cholesterol, men type I, multiple electrolyte abnormalities with subsequent parathyroidectomy on 03/26/2022 at [facility] [place], PTSD, GERD who recently had his calcitriol and ion supplemental medications increased over the last few weeks, who presents today for evaluation of anxiety. Patient states that he recently ran out of his clonazepam, he went and saw the secondary practitioner at his primary care provider's office, who was not able to refill the medication because she is not his PCP. However eventually he was able to get a prescription for 7 days until he is able to follow-up with his primary care provider later this week. Unfortunately when he went to the pharmacy yesterday the prescription was not yet filled, and they stated that it would not be ready till this morning at around 9:30 AM. It is currently 6 AM, Pedro Pablo has noticed increased anxiety, and is presenting to the ER for further assessment. He does state that he has been breaking his clonazepam's in half for the last day, and so we did have 0.5 mg twice daily for the last 24 hours. He has not had any today or last night. He denies any other complaints at this time. He has not drunk any alcohol. Related Data Home Medications ?Medication ?Instructions ?Recorded ?Confirmed calcium carbonate (Tums) 2,000 mg PO BID 02/02/23 02/03/24 methadone 10 mg/5 mL oral solution 105 mg PO QAM 06/12/23 02/03/24 polyethylene glycol 3350 17 17 g PO DAILY PRN 06/12/23 02/03/24 gram/dose oral powder gabapentin 300 mg capsule 300 mg PO BID #180 caps 06/23/23 02/03/24 omeprazole 40 mg capsule,delayed 40 mg PO DAILY #90 caps 07/21/23 02/03/24 release prochlorperazine maleate 5 mg 5 mg PO TID PRN acute nausea #30 09/06/23 02/03/24 tablet tabs simethicone 125 mg chewable tablet 125 mg PO QID PRN abdominal 10/30/23 02/03/24 distention #20 tabs magnesium gluconate 27 mg 13.5 mg (1/2 x 27 mg magnesium 11/21/23 02/03/24 magnesium (500 mg) tablet (500 mg)) PO TID #60 tabs famotidine 20 mg tablet 20 mg PO BID 11/24/23 02/03/24 cyclobenzaprine 10 mg tablet 10 mg PO TID PRN muscle spasm #30 12/04/23 02/03/24 tabs diclofenac sodium 1 % topical gel 4 g topical QID PRN 12/15/23 02/03/24 ondansetron 4 mg disintegrating 4 mg PO Q6H PRN nausea and 12/15/23 02/03/24 tablet vomiting #20 tabs calcitriol 0.5 mcg capsule 1 mcg PO BID 02/01/24 02/03/24 azithromycin 250 mg tablet See Rx Instructions PO .COMPLEX #6 02/02/24 02/03/24 tabs clonazepam 1 mg tablet 1 mg PO BID #20 tabs 02/02/24 02/03/24 Previous Rx's ?Medication ?Instructions ?Recorded gabapentin 300 mg capsule 300 mg PO BID #180 caps 06/23/23 omeprazole 40 mg capsule,delayed 40 mg PO DAILY #90 caps 07/21/23 release prochlorperazine maleate 5 mg 5 mg PO TID PRN acute nausea #30 09/06/23 tablet tabs simethicone 125 mg chewable tablet 125 mg PO QID PRN abdominal 10/30/23 distention #20 tabs magnesium gluconate 27 mg 13.5 mg (1/2 x 27 mg magnesium 11/21/23 magnesium (500 mg) tablet (500 mg)) PO TID #60 tabs cyclobenzaprine 10 mg tablet 10 mg PO TID PRN muscle spasm #30 12/04/23 tabs ondansetron 4 mg disintegrating 4 mg PO Q6H PRN nausea and 12/15/23 tablet vomiting #20 tabs azithromycin 250 mg tablet See Rx Instructions PO .COMPLEX #6 02/02/24 tabs clonazepam 1 mg tablet 1 mg PO BID #20 tabs 02/02/24 Allergies Allergy/AdvReac Type Severity Reaction Status Date / Time codeine Allergy Intermediate pass out Verified 02/03/24 06:17 Penicillins Allergy Skin Rash Verified 02/03/24 06:17 amoxicillin AdvReac Intermediate Nausea Verified 02/03/24 06:17 dextromethorphan (From AdvReac Intermediate Other (See Verified 02/03/24 06:17 NyQuil) Comment) doxylamine (From NyQuil) AdvReac Intermediate Other (See Verified 02/03/24 06:17 Comment) pseudoephedrine (From NyQuil) AdvReac Intermediate Other (See Verified 02/03/24 06:17 Comment) General Stated Complaint: Anxiety ADRIANA: 5 Review of Systems All systems reviewed & are unremarkable except as noted in HPI and below Exam Narrative Exam Narrative: 1.Const: Well-nourished, Well-developed, appearing stated age 2.Eyes: PERRL, no conjunctival injection, and symmetrical lids. 3.ENT: Atraumatic external nose and ears. Moist MM. Neck: Symmetric, trachea midline, No thyromegaly. 4.CVS: +S1/S2, No murmurs or gallops. Peripheral pulses 2+ and equal in all extremities. Brisk capillary refill in all extremities. 5.RESP: Unlabored respiratory effort. Clear to auscultation bilaterally. No wheezes rales or rhonchi 6.GI: Soft, Nontender/Nondistended, No hepatosplenomegaly. No guarding or rebound. 7.MSK: Normocephalic/Atraumatic, Extremities w/o deformity or ttp No cyanosis or clubbing, Normal movement of all extremities 8.Skin: Warm, Dry. No rashes or lesions. 9.Neuro: muck farmer II-XII grossly intact. Sensation grossly intact, no focal neurologic deficits. 10.Psych: (AAO) x3. Patient appears at baseline Course Vital Signs Vital signs: Vital Signs Temperature 36.3 C L 02/03/24 06:02 Pulse 110 H 02/03/24 06:02 Respiratory Rate 16 02/03/24 06:02 Blood Pressure 128/95 H 02/03/24 06:02 Pulse Oximetry 98 02/03/24 06:02 Temperature 36.3 C L 02/03/24 06:02 Temperature Source Temporal Artery Scan 02/03/24 06:02 Pulse 110 H 02/03/24 06:02 Respiratory Rate 16 02/03/24 06:02 Blood Pressure 128/95 H 02/03/24 06:02 Blood Pressure Position Sitting 02/03/24 06:02 Pulse Oximetry 98 02/03/24 06:02 Oxygen Delivery Method Room Air 02/03/24 06:02 Oxygen Flow Rate 0 02/03/24 06:02 Medical Decision Making This is a 28-year-old male with a past medical history significant for anxiety, depression, high cholesterol, men type I, multiple electrolyte abnormalities with subsequent parathyroidectomy on 03/26/2022 at [facility] [place], PTSD, GERD who recently had his calcitriol and ion supplemental medications increased over the last few weeks, who presents today for evaluation of anxiety. Patient states that he recently ran out of his clonazepam, he went and saw the secondary practitioner at his primary care provider's office, who was not able to refill the medication because she is not his PCP. However eventually he was able to get a prescription for 7 days until he is able to follow-up with his primary care provider later this week. Unfortunately when he went to the pharmacy yesterday the prescription was not yet filled, and they stated that it would not be ready till this morning at around 9:30 AM. It is currently 6 AM, Pedro Pablo has noticed increased anxiety, and is presenting to the ER for further assessment. He does state that he has been breaking his clonazepam's in half for the last day, and so we did have 0.5 mg twice daily for the last 24 hours. He has not had any today or last night. He denies any other complaints at this time. He has not drunk any alcohol. Exam demonstrates well-appearing male, patient does have very mild tachycardia. Symptoms do not appear consistent with severe panic, however he does admit to notable subjective feelings of mild anxiousness. I had a very long discussion with Pedro Pablo discussing medications, and that the emergency department does not fill scripts for long term acute care registered nurse narcotic or benzodiazepine prescriptions. I also discussed the active from monitoring system for all narcotics and benzodiazepines, and I did ask if he had a specific contract with his primary care provider regulating what he took and when he takes it. He does not believe that he has an opiate or benzo contract with his PCP.. Understanding all of this, I have offered Pedro Pablo 0.5 mg of clonazepam tablet to have this morning, but I made it unequivocally clear that this is a one-time scenario, and we will not be able to refilling any additional benzos in between prescriptions. Discussed red flags which to return I have extensively reviewed the treatment plan and discharge instructions with the patient. I have addressed all patient concerns at this time. The patient was made aware of what symptoms to monitor for that would warrant a return to the emergency department. Discussed the plan with the patient, they demonstrate verbal understanding and agreement with our assessment and plan at this time. The documentation in this chart was dictated using [email or web address] dictation software. Please excuse any dictation errors. Quality:SDOH Health Related Social Needs: Health related social needs transpo insecurity PFSH All Active Problems Anxiety (Chronic) Hypomagnesemia (Acute) Hypomagnesemia (Acute) Hypocalcemia (Acute) Insect bite of leg, right (Acute) Testicle lump (Acute) Hamstring tendinitis of left thigh (Acute) Pes anserine bursitis (Acute) Hypernatremia (Acute) Cervical radiculopathy (Acute) Left-sided Flower's palsy (Acute) Constipation (Acute) Grief reaction (Chronic) Opiate dependence, continuous (Acute) 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 Possible 2' Methadone, Clnzpm (?). Surg eval (+)/No further action. History of electrolyte imbalance (Acute) Neck pain on left side (Acute) with shoulder, upper back pain.. torticollis, radiating into left hip/leg Pulmonary nodule 1 cm or greater in diameter (Chronic) Therapeutic opioid induced constipation (Acute) Sphincter of Oddi dysfunction (Chronic) Abnormal CT scan, kidney (Acute) Intrahepatic bile duct dilation (Acute) Common bile duct dilatation (Chronic) Has been dilated for quite some time, now more-so. Normal LFTs. Known gallstones. Iatrogenic hypocalcemia (Acute) Multiple endocrine neoplasia type I (Chronic) Depression (Chronic) Hypocalcemia (Chronic) Elevated parathyroid hormone (Acute) Family history of coronary arteriosclerosis (Chronic) Father of OH at 50, mother had OH at 42 Severe anxiety with panic (Chronic) Medical History CKD (chronic kidney disease) stage 2, GFR 60-89 ml/min GFR 64-65, with Hx FLORESITA and GFR < 45 Primary hyperparathyroidism Complex medical condition Serious electrolyte imbalances, with gynecomastia, possible MEN Dx, CKD and anemia with baseline anxiety and Hx PTSD. Hypocalcemia Anxiety Depression Hyperlipidemia Family history of multiple endocrine neoplasia, type 1 PTSD (post-traumatic stress disorder) Per pt. states no triggers at this time. Surgical History History of laparoscopic cholecystectomy (~11/2023) H/O parathyroidectomy Family History Mother Anxiety Asthma Depression Sister Anxiety Depression Father Cancer lung & stomach Depression Diabetes Hypertension MEN 1 (multiple endocrine neoplasia) Social History Smoking/Tobacco Use Status: Never Smoking risk assessment performed?: Yes Alcohol Intake: never Drug use: Current Sobriety Substance use type: former substance user Adopted: No Caregiver/Support person: No Foster care: No Household members: none Housing: apartment Number of Children: 0 Communication Needs: None Education Level: high school Do you need help understanding health information?: Never current occupation: [employer] Pets and animals: Yes (Ally) Pets and animals: dog(s) Sexually active: No Do you think of yourself as: straight/heterosexual Current gender identity: male What is your relationship status?: How often do you talk on the phone with friends or family?: twice per week How often do you get together with friends or relatives?: never Do you belong to any clubs or organized social groups?: no Panel score (0-1 are the most socially isolated patients): 0 What type of physical activity do you participate in: walking Duration: 15-30 minutes/day Frequency: 5-6 times per week Maryam/Religious: Congregation Special maryam needs: No Seatbelt use: always Helmet use: Yes Helmet use: always Drive intox or ride w/intox driver sales: No Do you feel safe at home: Yes Do you feel safe in your relationship?: Yes
[2024-02-03 06:12] VITALS: RESP 18
[2024-02-03] MEDS: clonazePAM 0.5 MG TAB PO (06:12)
== END 2024-02-03 06:25 | disposition home or self-care (01) ==
PROVIDERS: Emergency Provider Student in an Organized Health Care Education/Training Program; PCP Family Medicine
DX: F41.9 Anxiety disorder, unspecified (principal)
CPT/HCPCS: 99283; 99284

== ENCOUNTER 2024-02-03 13:16 | Emergency (ER) | payer OTHER, SELFPAY ==
[2024-02-03 13:18] VITALS: BP 118/86; PULSE 135; RESP 18; TEMP 36.7; O2SAT 97
--- NOTE | 2024-02-03 13:45 | DI.CT_ITS ---
Exam(s) CT CERVICAL SPINE WO EXAM: CT CERVICAL SPINE WO CLINICAL HISTORY: neck pain. TECHNIQUE: Imaging Protocol: Axial computed tomography images with coronal and sagittal reformatted images were created and reviewed CONTRAST MATERIAL: Noncontrast COMPARISON: CT CT CERVICAL SPINE WO from 10/09/2022 FINDINGS: Bones: No fracture or dislocations are seen. The alignment of the cervical spine is normal including the cervicovertebral junction and cervicothoracic junction. Soft Tissues: The soft tissues of the neck are unremarkable. Surgical clips adjacent to both lobes o f the thyroid. Thyroid appears normal. Parotid and submandibular glands appear normal. No preverte bral soft tissue swelling. No large disk herniations are identified. The visualized portions of the lung apices are clear. No pneumothorax is seen. IMPRESSION: Normal CT scan of the cervical spine. RADIATION DOSE DELIVERED: Total DLP DATA REPOSITORY: All CT scans at this facility are submitted to the National Radiology Data Registry (NRDR) Dose Index Registry (DIR) with the [employer] (A[employer]). RADIATION OPTIMIZATION: All CT scans at this facility use at least one of these dose optimization te chniques: automated exposure control; mA and/or kV adjustment per patient size (includes targeted exa ms where dose is matched to clinical indication); or iterative reconstruction.
--- NOTE | 2024-02-03 13:45 | RT.EKG_ITS ---
APPROVED REPORT Exam: Resting ECG Reason for Exam: palpitations Patient Location: E HR:114 bpm ECG Measurements Heart Rate 114 AXIS SC 168 P 44 QRSd 92 QRS 85 QT 328 T 21 QTc 453 Conclusion Sinus tachycardia...rate> 99 sinus tachycardia, normal axis, normal intervals, non ischemic
--- NOTE | 2024-02-03 13:45 | W.ED.GENAD ---
Discharge Plan Disposition Patient Disposition: Home Condition: Stable Discharge Details Clinical Impression: Cervical radiculopathy Primary Care Provider: Brendon Vivar ED Provider: Richy Oakes Home Meds and New Rx's Prescriptions: No Action gabapentin 300 mg capsule 300 mg PO BID Qty: 180 3RF cyclobenzaprine 10 mg tablet 10 mg PO TID PRN (Reason: muscle spasm) Qty: 30 3RF methadone 10 mg/5 mL solution 105 mg PO QAM polyethylene glycol 3350 17 gram/dose powder 17 g PO DAILY PRN omeprazole 40 mg capsule,delayed release(DR/EC) 40 mg PO DAILY Qty: 90 3RF clonazepam 1 mg tablet 1 mg PO BID Qty: 20 0RF calcium carbonate [Tums] 200 mg calcium (500 mg) tablet,chewable 2,000 mg PO BID prochlorperazine maleate 5 mg tablet 5 mg PO TID PRN (Reason: acute nausea) Qty: 30 0RF ondansetron 4 mg tablet,disintegrating 4 mg PO Q6H PRN (Reason: nausea and vomiting) Qty: 20 0RF calcitriol 0.5 mcg capsule 1 mcg PO BID simethicone 125 mg tablet,chewable 125 mg PO QID PRN (Reason: abdominal distention) Qty: 20 0RF magnesium gluconate 27 mg magnesium (500 mg) tablet 13.5 mg PO TID Qty: 60 3RF Discharge Instructions Instructions: Radiculopathy of the neck and back (including sciatica) Additional Instructions: You were seen in the emergency department for your acute neck and back pain, this is likely cervical radiculopathy with your lateral neck pain and tenderness, you likely have a pinched nerve in your neck. Your cardiac workup is negative, there is no sign of acute infectious etiology and your EKG is within normal limits, CT scan of your neck is unremarkable for any severe cervical spinal stenosis or significant displacement or disc protrusion. Please apply gentle heat to the area, perform gentle massage, try and perform neck stretches as needed, return to the emergency department for any worsening chest pain, spreading rash across your chest. Referrals: Brendon Vivar DO [Primary Care Provider] - HPI General Date/Time Provider Initiated Documentation: 02/03/24 13:25. HPI Narrative: 28 year-old male presents to ED today by POV/ambulating with a chief complaint of neck and head pain, spreading towards his chest with onset just prior to arrival while sitting on his couch. Quality described as burning/searing pain radiating from the crown of his head down his back to his buttcheeks, endorses some lateral neck pain and spreading across the anterior upper chest, feels hot, starting to get a rash on his chest as well, with radiation to tachycardia/palpitations, denies nausea/vomiting, denies fevers, denies neck stiffness, denies numbness/tingling/weakness, denies visual changes, sensory changes, focal weakness. Severity is described as severe. Palliating factors include nothing specific attempted. Provoking factors include nothing specific. Events leading up to the incident/Associated Symptoms: Patient has taken his muscle relaxers this morning. Endorses some R lateral neck/occipital mass that has planned follow-up imaging at [facility] at some point. Patient not anticoagulated. Related Data Home Medications ?Medication ?Instructions ?Recorded ?Confirmed calcium carbonate (Tums) 2,000 mg PO BID 02/02/23 02/03/24 methadone 10 mg/5 mL oral solution 105 mg PO QAM 06/12/23 02/03/24 polyethylene glycol 3350 17 17 g PO DAILY PRN 06/12/23 02/03/24 gram/dose oral powder gabapentin 300 mg capsule 300 mg PO BID #180 caps 06/23/23 02/03/24 omeprazole 40 mg capsule,delayed 40 mg PO DAILY #90 caps 07/21/23 02/03/24 release prochlorperazine maleate 5 mg 5 mg PO TID PRN acute nausea #30 09/06/23 02/03/24 tablet tabs simethicone 125 mg chewable tablet 125 mg PO QID PRN abdominal 10/30/23 02/03/24 distention #20 tabs magnesium gluconate 27 mg 13.5 mg (1/2 x 27 mg magnesium 11/21/23 02/03/24 magnesium (500 mg) tablet (500 mg)) PO TID #60 tabs cyclobenzaprine 10 mg tablet 10 mg PO TID PRN muscle spasm #30 12/04/23 02/03/24 tabs ondansetron 4 mg disintegrating 4 mg PO Q6H PRN nausea and 12/15/23 02/03/24 tablet vomiting #20 tabs calcitriol 0.5 mcg capsule 1 mcg PO BID 02/01/24 02/03/24 clonazepam 1 mg tablet 1 mg PO BID #20 tabs 02/02/24 02/03/24 Previous Rx's ?Medication ?Instructions ?Recorded gabapentin 300 mg capsule 300 mg PO BID #180 caps 06/23/23 omeprazole 40 mg capsule,delayed 40 mg PO DAILY #90 caps 07/21/23 release prochlorperazine maleate 5 mg 5 mg PO TID PRN acute nausea #30 09/06/23 tablet tabs simethicone 125 mg chewable tablet 125 mg PO QID PRN abdominal 10/30/23 distention #20 tabs magnesium gluconate 27 mg 13.5 mg (1/2 x 27 mg magnesium 11/21/23 magnesium (500 mg) tablet (500 mg)) PO TID #60 tabs cyclobenzaprine 10 mg tablet 10 mg PO TID PRN muscle spasm #30 12/04/23 tabs ondansetron 4 mg disintegrating 4 mg PO Q6H PRN nausea and 12/15/23 tablet vomiting #20 tabs clonazepam 1 mg tablet 1 mg PO BID #20 tabs 02/02/24 Allergies Allergy/AdvReac Type Severity Reaction Status Date / Time codeine Allergy Intermediate pass out Verified 02/03/24 13:23 Penicillins Allergy Skin Rash Verified 02/03/24 13:23 amoxicillin AdvReac Intermediate Nausea Verified 02/03/24 13:23 dextromethorphan (From AdvReac Intermediate Other (See Verified 02/03/24 13:23 NyQuil) Comment) doxylamine (From NyQuil) AdvReac Intermediate Other (See Verified 02/03/24 13:23 Comment) pseudoephedrine (From NyQuil) AdvReac Intermediate Other (See Verified 02/03/24 13:23 Comment) General Stated Complaint: Nk/Back Pain ADRIANA: 3 Review of Systems All systems reviewed & are unremarkable except as noted in HPI and below Exam Narrative Exam Narrative: GENERAL APPEARANCE: Well-nourished, non-toxic, awake and alert, atraumatic, no acute distress. SKIN: Warm, pink, dry, intact, without rashes/lesions/ulcerations. HEAD: Normocephalic, atraumatic, normal hair distribution for gender/age. EYES: Normal conjunctiva, no exudates on lids/lashes. ENT: Nares patent, no circumoral cyanosis, no facial swelling NECK: Supple, trachea midline, painless cervical ROM. LUNGS/CHEST: Lungs CTA bilaterally- no rhonchi/rales/wheezes diffusely, non-labored respirations, normal A/P diameter, symmetrical expansion, no chest wall deformity- macular slapped rash appearance across the pectoralis area, no lesions HEART (CV/PV): Regular rate and rhythm without murmur, no peripheral edema, no JVD. ABDOMEN: Soft, non-distended, no guarding, no tenderness. MSK: Normal ROM, no swelling/deformity to bilateral UEs or LEs, moving all extremities without weakness, no cyanosis, spine midline without tenderness, normal curvature. NEURO: Mental Status AAOx4 - alert to person, place, time, events No facial droop, no forehead involvement. Motor: No focal weakness - strength 5/5 in bilateral UEs and LEs, proximal and distal, symmetric. Sensory: sensation intact to light touch globally. Gait normal: patient ambulated without ataxia into ED room. PSYCH: euthymic, cooperative, pleasant, appropriate speech Course Vital Signs Vital signs: Vital Signs Temperature 36.7 C 02/03/24 13:18 Pulse 135 H 02/03/24 13:18 Respiratory Rate 18 02/03/24 13:18 Blood Pressure 118/86 02/03/24 13:18 Pulse Oximetry 97 02/03/24 13:18 Temperature 36.7 C 02/03/24 13:18 Pulse 135 H 02/03/24 13:18 Respiratory Rate 18 02/03/24 13:18 Respiratory Effort Normal 02/03/24 13:24 Blood Pressure 118/86 02/03/24 13:18 Pulse Oximetry 97 02/03/24 13:18 Pain Level 5 02/03/24 13:18 Medical Decision Making This dictation utilizes [id number] dictation software and may contain unedited grammatical errors. 28 year-old male presents to ED today by POV/ambulating with a chief complaint of neck and head pain, spreading towards his chest with onset just prior to arrival while sitting on his couch. Quality described as burning/searing pain radiating from the crown of his head down his back to his buttcheeks, endorses some lateral neck pain and spreading across the anterior upper chest, feels hot, starting to get a rash on his chest as well, with radiation to tachycardia/palpitations, denies nausea/vomiting, denies fevers, denies neck stiffness, denies numbness/tingling/weakness, denies visual changes, sensory changes, focal weakness. Severity is described as severe. Palliating factors include nothing specific attempted. Provoking factors include nothing specific. Events leading up to the incident/Associated Symptoms: Patient has taken his muscle relaxers this morning. Endorses some R lateral neck/occipital mass that has planned follow-up imaging at [facility] at some point. Patients' medical history: complex medical history- many GI issues, pain issues, anxiety, has chronic cervical neck pain. Family and social history: noncontributory. Pertinent exam findings / vital signs include tachycardic which is the patient's baseline, some mild macular rash across pectoralis muscles, has tenderness in each trapezius muscle, NV intact diffusely. Differential / pathologies of concern include cervical radiculopathy, mass, anxiety, ACS, migraine, vasculitis unlikely, unlikely ICH Diagnostic studies of: -CBC, CMP, CRP/ESR, magnesium, serial troponin I, EKG, CT cervical spine without contrast. -CBC benign, baseline anemia -CMP benign other than a baseline creatinine, chronically elevated LFTs that are stable -Magnesium within normal limits -Initial troponin negative, 3-hour value pending -EKG shows baseline sinus tachycardia no STEMI, no ST changes, normal intervals, consistent with priors -CT of cervical spine shows no acute abnormality, no fracture Interventions of: -1mg PO Ativan. ED Course/Assessment/Plan: 28-year-old male presents with severe sudden onset neck head and back pain radiating down his spine and spreading across his chest, he states he feels hot and has a rash developing on his chest, I do suspect this is cervical radiculopathy with patient's well-known anxiety.. I did provide 1 mg Ativan p.o. for muscle relaxation, laboratory workup is benign, with the patient's sudden onset chest pain going to rule out acute coronary syndrome, do not suspect from EKG, patient signed out to oncoming provider Steph Jones PA-C at shift change with repeat troponin pending. Findings not consistent with neurovascular compromise. Disposition of Cervical Radiculopathy. Patient verbalized understanding of the plan and return to ED criteria and engaged in shared decision making. Medical Records Medical records reviewed: Yes I reviewed the patient's medical records. Imaging Data Radiologic Study: Attestation: I personally reviewed and interpreted this imaging study as follows: Imaging: CT Scan Radiologist's impression: EXAM: CT CERVICAL SPINE WO CLINICAL HISTORY: neck pain. TECHNIQUE: Imaging Protocol: Axial computed tomography images with coronal and sagittal reformatted images were created and reviewed CONTRAST MATERIAL: Noncontrast COMPARISON: CT CT CERVICAL SPINE WO from 10/09/2022 FINDINGS: Bones: No fracture or dislocations are seen. The alignment of the cervical spine is normal including the cervicovertebral junction and cervicothoracic junction. Soft Tissues: The soft tissues of the neck are unremarkable. Surgical clips adjacent to both lobes of the thyroid. Thyroid appears normal. Parotid and submandibular glands appear normal. No prevertebral soft tissue swelling. No large disk herniations are identified. The visualized portions of the lung apices are clear. No pneumothorax is seen. IMPRESSION: Normal CT scan of the cervical spine. Lab Data Lab results reviewed: Yes I reviewed the patient's lab results. Labs: Laboratory Tests Range/Units 02/03/24 14:11 WBC (4.4-10.8) 10^3/uL 9.77 RBC (4.36-5.78) 10^6/uL 4.60 Hgb (13.5-17.5) g/dL 12.6 L Hct (40.0-50.0) % 39.0 L MCV (80-95) fL 85 MCH (27.0-33.0) pg 27.4 MCHC (32.0-36.0) % 32.3 RDW (11.8-14.1) % 14.1 Plt Count (130-400) 10^3/uL 383 MPV (8.0-11.0) fL 9.6 Immature Gran % % 0.4 Neutrophils % % 71.0 Lymphocytes % % 18.8 Monocytes % % 7.8 Eosinophils % % 1.6 Basophils % % 0.4 Nucleated RBC % (0.0-0.3) % 0.0 Absolute Neutrophils (1.2-6.7) 10^3/uL 6.93 H Absolute Lymphocytes (1.2-3.4) 10^3/uL 1.84 Absolute Monocytes (0.1-0.8) 10^3/uL 0.76 Absolute Eosinophils (0.0-0.7) 10^3/uL 0.16 Absolute Basophils (0.0-0.2) 10^3/uL 0.04 ESR (0-15) mm/hr 52 H Sodium (136-145) mmol/L 139 Potassium (3.5-5.1) mmol/L 3.9 Chloride (98-107) mmol/L 101 Carbon Dioxide (21.0-32.0) mmol/L 32.0 Anion Gap (3-11) mmol/L 6.0 BUN (7-18) mg/dL 12 Creatinine (0.70-1.30) mg/dL 1.4 H Est GFR (CKD-EPI 2020) (mL/min/1.73m2) 69.34 Glucose (74-106) mg/dL 100 Calcium (8.5-10.1) mg/dL 9.2 Magnesium (1.8-2.4) mg/dL 1.9 Total Bilirubin (0.2-1.0) mg/dL 0.22 AST (15-37) U/L 46 H ALT (16-63) U/L 70 H Alkaline Phosphatase (46-116) U/L 269 H Troponin I (< or =60) ng/L < 50 C-Reactive Protein (<or=0.5) mg/dL 0.82 H Total Protein (6.4-8.2) g/dL 8.5 H Albumin (3.4-5.0) g/dL 3.3 L TSH (0.36-3.74) uIU/mL 0.86 Quality:SDOH Health Related Social Needs: Health related social needs transpo insecurity PFSH All Active Problems (Updated 02/03/24 @ 15:19 by ANDREW Coleman) Cervical radiculopathy (Acute) Anxiety (Chronic) Hypomagnesemia (Acute) Hypomagnesemia (Acute) Hypocalcemia (Acute) Insect bite of leg, right (Acute) Testicle lump (Acute) Hamstring tendinitis of left thigh (Acute) Pes anserine bursitis (Acute) Hypernatremia (Acute) Cervical radiculopathy (Acute) Left-sided Flower's palsy (Acute) Constipation (Acute) Grief reaction (Chronic) Opiate dependence, continuous (Acute) 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 Possible 2' Methadone, Clnzpm (?). Surg eval (+)/No further action. History of electrolyte imbalance (Acute) Neck pain on left side (Acute) with shoulder, upper back pain.. torticollis, radiating into left hip/leg Pulmonary nodule 1 cm or greater in diameter (Chronic) Therapeutic opioid induced constipation (Acute) Sphincter of Oddi dysfunction (Chronic) Abnormal CT scan, kidney (Acute) Intrahepatic bile duct dilation (Acute) Common bile duct dilatation (Chronic) Has been dilated for quite some time, now more-so. Normal LFTs. Known gallstones. Iatrogenic hypocalcemia (Acute) Multiple endocrine neoplasia type I (Chronic) Depression (Chronic) Hypocalcemia (Chronic) Elevated parathyroid hormone (Acute) Family history of coronary arteriosclerosis (Chronic) Father of [place] at 50, mother had [place] at 42 Severe anxiety with panic (Chronic) Medical History CKD (chronic kidney disease) stage 2, GFR 60-89 ml/min GFR 64-65, with Hx FLORESITA and GFR < 45 Primary hyperparathyroidism Complex medical condition Serious electrolyte imbalances, with gynecomastia, possible MEN Dx, CKD and anemia with baseline anxiety and Hx PTSD. Hypocalcemia Anxiety Depression Hyperlipidemia Family history of multiple endocrine neoplasia, type 1 PTSD (post-traumatic stress disorder) Per pt. states no triggers at this time. Surgical History History of laparoscopic cholecystectomy (~11/2023) H/O parathyroidectomy Family History Mother Anxiety Asthma Depression Sister Anxiety Depression Father Cancer lung & stomach Depression Diabetes Hypertension MEN 1 (multiple endocrine neoplasia) Social History Smoking/Tobacco Use Status: Never Smoking risk assessment performed?: Yes Alcohol Intake: never Drug use: Current Sobriety Substance use type: former substance user Adopted: No Caregiver/Support person: No Foster care: No Household members: none Housing: apartment Number of Children: 0 Communication Needs: None Education Level: high school Do you need help understanding health information?: Never current occupation: [employer] Pets and animals: Yes (Ally) Pets and animals: dog(s) Sexually active: No Do you think of yourself as: straight/heterosexual Current gender identity: male What is your relationship status?: How often do you talk on the phone with friends or family?: twice per week How often do you get together with friends or relatives?: never Do you belong to any clubs or organized social groups?: no Panel score (0-1 are the most socially isolated patients): 0 What type of physical activity do you participate in: walking Duration: 15-30 minutes/day Frequency: 5-6 times per week Maryam/Worship: Tenriism Special maryam needs: No Seatbelt use: always Helmet use: Yes Helmet use: always Drive intox or ride w/intox show horse 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 Sign Out Sign Out Data: Sign Out Comment: Repeat trop at 1700 pending. Likely d/c with cervical radiculopathy, re-assess rash to chest Last updated by Richy Oakes PA at 02/03/24 15:20
[2024-02-03 14:18] LABS: Abs Immature Grans 0.04 10^3/uL (0.0-0.06); Absolute Basophil Count 0.04 10^3/uL (0.0-0.2); Absolute Eosinophil Count 0.16 10^3/uL (0.0-0.7); Absolute Lymphocyte Count 1.84 10^3/uL (1.2-3.4); Absolute Monocyte Count 0.76 10^3/uL (0.1-0.8); Absolute Neutrophil Count 6.93 10^3/uL (1.2-6.7); Basophils % 0.4 %; Eosinophils % 1.6 %; HGB 12.6 g/dL (13.5-17.5); Immature Grans % 0.4 %; Lymphocytes % 18.8 %; MCH 27.4 pg (27.0-33.0); MCHC 32.3 % (32.0-36.0); MCV 85 fL (80-95); MPV 9.6 fL (8.0-11.0); Monocytes % 7.8 %; Platelet Count 383 10^3/uL (130-400); RDW 14.1 % (11.8-14.1); RDW-SD 41.9 fL; WBC 9.77 10^3/uL (4.4-10.8)
[2024-02-03 14:20] LABS: ESR 52 mm/hr (0-15)
[2024-02-03 14:48] LABS: ALT 70 U/L (16-63); AST 46 U/L (15-37); Albumin 3.3 g/dL (3.4-5.0); Alkaline Phosphatase 269 U/L (46-116); BUN 12 mg/dL (7-18); Bilirubin, Total 0.22 mg/dL (0.2-1.0); C-Reactive Protein 0.82 mg/dL (<or=0.5); CREATININE 1.4 mg/dL (0.70-1.30); Calcium 9.2 mg/dL (8.5-10.1); Chloride 101 mmol/L (98-107); Estimated GFR 69.34 (mL/min/1.73m2); Glucose 100 mg/dL (74-106); Magnesium 1.9 mg/dL (1.8-2.4); Potassium 3.9 mmol/L (3.5-5.1); Sodium 139 mmol/L (136-145); TSH (W/Ref FT4) 0.86 uIU/mL (0.36-3.74); Total Protein 8.5 g/dL (6.4-8.2)
[2024-02-03 14:50] LABS: Troponin I < 50 ng/L (< or =60)
[2024-02-03] MEDS: LORazepam 1 MG TAB PO (15:30)
[2024-02-03 15:50] VITALS: BP 131/83; PULSE 85; RESP 16; TEMP 36.6; O2SAT 94
--- NOTE | 2024-02-03 16:37 | W.EDPROG ---
Date of service: 02/03/24 Time of Service: 16:38 Medical Decision Making Care transition myself from Richy Oakes PA-C, with repeat troponin pending. Patient also had been endorsing a chest rash which is since subsided. I did reevaluate his chest and did not note any evidence of rash. Patient reports that he does typically get this during times of stress or anxiety. Please see ANDREW Oakes's initial note regarding history, presentation and exam. I did come in with neck and back pain towards his chest. Patient does have right lateral neck/occipital mass that is can be worked up at [facility] further. Labs were initially obtained showed no acute abnormality for this patient, baseline changes noted. Primary concern at this time is cervical radiculopathy. Out of abundance of caution, repeat troponin will be obtained at 5 PM. Discussed this plan with the patient and he is in agreement. Repeat troponin is within normal limits. I discussed these findings with the patient. He is resting comfortably no acute distress, again his rash has subsided. He feels comfortable going home. He will keep upcoming appointment and plan regarding his neck pathology with [facility]. Return precautions discussed. Encouraged follow-up with primary care. All of his questions and concerns were addressed and he is in agreement this plan. Quality:SDOH Health Related Social Needs: Health related social needs transpo insecurity Sign Out Sign Out Data: Sign Out Comment: Repeat trop at 1700 pending. Likely d/c with cervical radiculopathy, re-assess rash to chest Last updated by Richy Oakes PA at 02/03/24 15:20 Discharge Plan Disposition Patient Disposition: Home Condition: Stable Discharge Details Clinical Impression: Cervical radiculopathy Primary Care Provider: Brendon Vivar ED Provider: Steph Jones Lamont Meds and New Rx's Prescriptions: No Action gabapentin 300 mg capsule 300 mg PO BID Qty: 180 3RF cyclobenzaprine 10 mg tablet 10 mg PO TID PRN (Reason: muscle spasm) Qty: 30 3RF methadone 10 mg/5 mL solution 105 mg PO QAM polyethylene glycol 3350 17 gram/dose powder 17 g PO DAILY PRN omeprazole 40 mg capsule,delayed release(DR/EC) 40 mg PO DAILY Qty: 90 3RF clonazepam 1 mg tablet 1 mg PO BID Qty: 20 0RF calcium carbonate [Tums] 200 mg calcium (500 mg) tablet,chewable 2,000 mg PO BID prochlorperazine maleate 5 mg tablet 5 mg PO TID PRN (Reason: acute nausea) Qty: 30 0RF ondansetron 4 mg tablet,disintegrating 4 mg PO Q6H PRN (Reason: nausea and vomiting) Qty: 20 0RF calcitriol 0.5 mcg capsule 1 mcg PO BID simethicone 125 mg tablet,chewable 125 mg PO QID PRN (Reason: abdominal distention) Qty: 20 0RF magnesium gluconate 27 mg magnesium (500 mg) tablet 13.5 mg PO TID Qty: 60 3RF Discharge Instructions Instructions: Radiculopathy of the neck and back (including sciatica) Additional Instructions: You were seen in the emergency department for your acute neck and back pain, this is likely cervical radiculopathy with your lateral neck pain and tenderness, you likely have a pinched nerve in your neck. Your cardiac workup is negative, there is no sign of acute infectious etiology and your EKG is within normal limits, CT scan of your neck is unremarkable for any severe cervical spinal stenosis or significant displacement or disc protrusion. Please apply gentle heat to the area, perform gentle massage, try and perform neck stretches as needed, return to the emergency department for any worsening chest pain, spreading rash across your chest. Referrals: Brendon Vivar DO [Primary Care Provider] -
[2024-02-03 17:19] LABS: Troponin I < 50 ng/L (< or =60)
[2024-02-03 17:57] VITALS: BP 131/88; PULSE 99; RESP 16; TEMP 36.5; O2SAT 100
== END 2024-02-03 18:00 | disposition home or self-care (01) ==
PROVIDERS: Physician Assistant; Emergency Provider Physician Assistant; PCP Family Medicine
DX: M54.12 Radiculopathy, cervical region (principal)
CPT/HCPCS: 00123; 36415; 80053; 85652; 93005; 99285; 72125; 83735; 84443; 84484; 85025; 86140; 93010; 99284

== ENCOUNTER 2024-02-04 14:49 | Outpatient (REF) | payer MEDICAID, SELFPAY | END 2024-02-04 14:50 | disposition home or self-care (01) | LOC: LBN 14:49 | PROVIDERS: PCP Family Medicine; Visit Provider Emergency Medicine Emergency Medical Services | DX: R30.0 Dysuria (principal) | CPT/HCPCS: 87086 ==

== ENCOUNTER 2024-02-09 02:10 | Outpatient (CLI) | payer MEDICAID, SELFPAY ==
--- NOTE | 2024-02-09 08:05 | DI.US_ITS ---
Exam(s) US BREAST LT COMPLETE MG MAMMO DIAGNOSTIC BI EXAM: MG MAMMO DIAGNOSTIC BI AND COMPLETE LEFT BREAST ULTRASOUND CLINICAL HISTORY: gynecomastia,N62. TECHNIQUE: BILATERAL CC AND MLO mammographic images were obtained with 3D tomosynthesis technique an d utilizing computer aided detection (CAD). Also performed exaggerated CC views of the left breast COMPARISON: Prior mammogram 02/24/2023 was reviewed. FINDINGS: DIAGNOSTIC BILATERAL MAMMOGRAM: There is relatively symmetrical bilateral gynecomastia again noted which exhibits minimal change from the February 2023 study. No new left breast mammographic findings, particularly in the medial aspect of the breast where he fe els a possible new finding. Benign-appearing lymph noted in left axillary region again noted. Benig n intramammary lymph node in the right breast is also again noted laterally.. There are no new spiculated masses nor malignant-appearing microcalcification groups in either breast . No new significant architectural distortion or skin thickening-traction. COMPLETE LEFT BREAST ULTRASOUND: No evidence of solid or significant cystic lesions in all 4 quadrants. At the 8-9 o'clock position o f the left (area of clinical concern) there are no significant focal ultrasound findings. At the left axillary tail region there is an 11 x 6 mm benign-appearing lymph node which corresponds to finding on the mammogram. There is no significant axillary adenopathy. IMPRESSION: 1. No mammographic evidence of malignancy. 2. Negative complete left breast ultrasound. Benign findings. The patient was informed of the findings and follow-up recommendations by myself prior to leaving the department today. BI-RADS Category 2 - Benign Findings Breast Density - Category B - Scattered areas of fibroglandular density Breast density Category C or D implies that the patient has dense breast tissue. Dense breast tissue can make it harder to find cancer on a mammogram. Dense breast tissue is also associated with an incr eased risk of breast cancer. This information about the result of the mammogram report was provided to the patient to raise their awareness. Use this report when you speak with the patient about their risks for breast cancer, which includes their family history. At that time, you may recommend additional screening tests (Ultrasoun d or MRI) as these tests may add significant information. A negative radiographic report should not delay biopsy if a dominant or clinically suspicious mass is present. Up to ten percent of cancers are not identified on mammography. A negative report may reinforce clinical impression. Adenosis and dense breasts may obscure an underlying neoplasm. False positive reports average 6 to 10%. Patient will receive a letter notifying them of these results.
== END 2024-02-09 02:30 ==
LOC: DI 02:10
PROVIDERS: PCP Family Medicine; Visit Provider Nurse Practitioner Family
DX: N62 Hypertrophy of breast; Z12.31 Encounter for screening mammogram for malignant neoplasm of breast
CPT/HCPCS: 76642; 77062; 77066; G0279

== ENCOUNTER 2024-02-09 14:19 | Emergency (ER) | payer OTHER, SELFPAY ==
[2024-02-09 14:22] VITALS: BP 117/79; PULSE 105; RESP 18; TEMP 36.8; O2SAT 98
--- NOTE | 2024-02-09 14:45 | DI.CT_ITS ---
Exam(s) CT HEAD WO EXAM: CT HEAD WO CLINICAL HISTORY: family hx MEN pituitary tumor; headache. TECHNIQUE: Imaging Protocol: Axial computed tomography images with coronal and sagittal reformatted images were created and reviewed COMPARISON: CT CT HEAD WO from 12/01/2022 FINDINGS: Ventricles and Extra axial spaces: Normal in size and morphology for the patient's age. Hemorrhage: None. Cerebral parenchyma: No evidence of acute infarct or mass. Midline shift: None. Brainstem/Cerebellum: Normal. Calvarium: Normal. Visualized Paranasal sinuses:Clear. Mastoids: Clear. Soft Tissues: Unremarkable. ORBITS: Unremarkable. PITUITARY: Not enlarged. IMPRESSION: No acute intracranial process. RADIATION DOSE DELIVERED: Total DLP DATA REPOSITORY: All CT scans at this facility are submitted to the National Radiology Data Registry (NRDR) Dose Index Registry (DIR) with the [employer] (ACR). RADIATION OPTIMIZATION: All CT scans at this facility use at least one of these dose optimization te chniques: automated exposure control; mA and/or kV adjustment per patient size (includes targeted exa ms where dose is matched to clinical indication); or iterative reconstruction.
[2024-02-09] MEDS: Dexamethasone 10 MG/ML VIAL PO (15:05)
[2024-02-09] MEDS: Lidocaine 5% Patch 1 PATCH TP (15:07)
[2024-02-09] MEDS: Ketorolac 15 MG/ML VIAL IM (15:07)
--- NOTE | 2024-02-09 15:49 | ED.GENADUL_ITS ---
Discharge Plan Disposition Patient Disposition: Eloped Discharge Details Clinical Impression: Headache Primary Care Provider: Brendon Vivar ED Provider: Ajay Kennedy Home Meds and New Rx's Prescriptions: No Action gabapentin 300 mg capsule 300 mg PO BID Qty: 180 3RF cyclobenzaprine 10 mg tablet 10 mg PO TID PRN (Reason: muscle spasm) Qty: 30 3RF simethicone 125 mg tablet,chewable 125 mg PO QID PRN (Reason: abdominal distention) Qty: 20 3RF clonazepam 1 mg tablet 1 mg PO BID Qty: 56 0RF methadone 10 mg/5 mL solution 105 mg PO QAM polyethylene glycol 3350 17 gram/dose powder 17 g PO DAILY PRN omeprazole 40 mg capsule,delayed release(DR/EC) 40 mg PO DAILY Qty: 90 3RF eletriptan 20 mg tablet See Rx Instructions PO .COMPLEX Qty: 20 0RF Rx Instructions: take 1 tab at onset of headache; if no relief may repeat 1 tab after at least 2 hrs; max = 4 tabs/24 hr PO calcium carbonate [Tums] 200 mg calcium (500 mg) tablet,chewable 2,000 mg PO BID prochlorperazine maleate 5 mg tablet 5 mg PO TID PRN (Reason: acute nausea) Qty: 30 0RF ondansetron 4 mg tablet,disintegrating 4 mg PO Q6H PRN (Reason: nausea and vomiting) Qty: 20 0RF calcitriol 0.5 mcg capsule 1 mcg PO BID magnesium gluconate 27 mg magnesium (500 mg) tablet 13.5 mg PO TID Qty: 60 3RF Discharge Data Discharge Date/Time-TO BE ENTERED AT DEPARTURE: 02/09/24 16:41 HPI General Date/Time Provider Initiated Documentation: 02/09/24 14:52 . HPI Narrative: 28-year-old male presents with 4 days of gradual onset left-sided frontal headache pressure-like in nature. Mild left-sided neck soreness. Denies fevers nausea vomiting visual changes or other systemic signs of illness. Has had recurrent migraines in the past. Recently treated for left ear effusion with course of azithromycin. Related Data Home Medications ?Medication ?Instructions ?Recorded ?Confirmed calcium carbonate (Tums) 2,000 mg PO BID 02/02/23 02/17/24 methadone 10 mg/5 mL oral solution 105 mg PO QAM 06/12/23 02/17/24 polyethylene glycol 3350 17 17 g PO DAILY PRN 06/12/23 02/17/24 gram/dose oral powder gabapentin 300 mg capsule 300 mg PO BID #180 caps 06/23/23 02/17/24 omeprazole 40 mg capsule,delayed 40 mg PO DAILY #90 caps 07/21/23 02/17/24 release prochlorperazine maleate 5 mg 5 mg PO TID PRN acute nausea #30 09/06/23 02/17/24 tablet tabs magnesium gluconate 27 mg 13.5 mg (1/2 x 27 mg magnesium 11/21/23 02/17/24 magnesium (500 mg) tablet (500 mg)) PO TID #60 tabs cyclobenzaprine 10 mg tablet 10 mg PO TID PRN muscle spasm #30 12/04/23 02/17/24 tabs ondansetron 4 mg disintegrating 4 mg PO Q6H PRN nausea and 12/15/23 02/17/24 tablet vomiting #20 tabs calcitriol 0.5 mcg capsule 1 mcg PO BID 02/01/24 02/17/24 eletriptan 20 mg tablet See Rx Instructions PO .COMPLEX 02/05/24 02/17/24 #20 tabs clonazepam 1 mg tablet 1 mg PO BID #56 tabs 02/13/24 02/17/24 simethicone 125 mg chewable tablet 125 mg PO QID PRN abdominal 02/13/24 02/17/24 distention #20 tabs Previous Rx's ?Medication ?Instructions ?Recorded gabapentin 300 mg capsule 300 mg PO BID #180 caps 06/23/23 omeprazole 40 mg capsule,delayed 40 mg PO DAILY #90 caps 07/21/23 release prochlorperazine maleate 5 mg 5 mg PO TID PRN acute nausea #30 09/06/23 tablet tabs magnesium gluconate 27 mg 13.5 mg (1/2 x 27 mg magnesium 11/21/23 magnesium (500 mg) tablet (500 mg)) PO TID #60 tabs cyclobenzaprine 10 mg tablet 10 mg PO TID PRN muscle spasm #30 12/04/23 tabs ondansetron 4 mg disintegrating 4 mg PO Q6H PRN nausea and 12/15/23 tablet vomiting #20 tabs eletriptan 20 mg tablet See Rx Instructions PO .COMPLEX 02/05/24 #20 tabs clonazepam 1 mg tablet 1 mg PO BID #56 tabs 02/13/24 simethicone 125 mg chewable tablet 125 mg PO QID PRN abdominal 02/13/24 distention #20 tabs Allergies Allergy/AdvReac Type Severity Reaction Status Date / Time codeine Allergy Intermediate pass out Verified 02/17/24 00:25 Penicillins Allergy Skin Rash Verified 02/17/24 00:25 amoxicillin AdvReac Intermediate Nausea Verified 02/17/24 00:25 dextromethorphan (From AdvReac Intermediate Other (See Verified 02/17/24 00:25 NyQuil) Comment) doxylamine (From NyQuil) AdvReac Intermediate Other (See Verified 02/17/24 00:25 Comment) pseudoephedrine (From NyQuil) AdvReac Intermediate Other (See Verified 02/17/24 00:25 Comment) General Stated Complaint: Headache ADRIANA: 3 Exam Narrative Exam Narrative: Alert oriented interactive Pupils round equal reactive to light, no proptosis or conjunctival injection Mild clear/serous effusion to left TM without bulging or erythema normal right TM Speaking full sentences tolerate secretions Soft neck supple full range of motion No respiratory distress Alert oriented normal speech cranial nerves intact 5-5 strength upper and lower extremities ambulatory without assistance no ataxia Course Vital Signs Vital signs: Vital Signs Temperature 36.8 C 02/09/24 14:22 Pulse 105 H 02/09/24 14:22 Respiratory Rate 18 02/09/24 14:22 Blood Pressure 117/79 02/09/24 14:22 Pulse Oximetry 98 02/09/24 14:22 Temperature 36.8 C 02/09/24 14:22 Temperature Source Oral 02/09/24 14:22 Pulse 105 H 02/09/24 14:22 Respiratory Rate 18 02/09/24 14:22 Respiratory Effort Normal 02/09/24 14:27 Blood Pressure 117/79 02/09/24 14:22 Pulse Oximetry 98 02/09/24 14:22 Pain Level 8 02/09/24 14:22 Medical Decision Making 28-year-old male presents with 4 days of gradual onset atraumatic headache left- sided nature frontal involving eye and neck, afebrile nontoxic nonmeningeal, neurologically intact, pupils round reactive equal to light, no conjunctival injection no proptosis, cranial nerves II through XII intact 5-5 strength upper and lower extremities bilaterally no ataxia, normal speech, no respiratory symptomatology, no external signs of trauma no signs of intoxication no infectious symptomatology. Slight clear serous effusion behind left TM, right TM clear. Consider tension headache versus migraine headache versus mild cluster headache low suspicion for meningitis encephalitis or malignancy low suspicion for subarachnoid hemorrhage, patient does have family history of multiple endocrine neoplasm father had a pituitary tumor, out of abundance of caution after some discussion with patient we will obtain CT head, will provide analgesia anti-inflammatory medications close reassessment of symptoms disposition pending results and reassessment Quality:SDOH Health Related Social Needs: Health related social needs transpo insecurity PFSH All Active Problems (Updated 02/22/24 @ 10:42 by Ajay Kennedy MD) Headache (Acute) History of anxiety (Acute) Left groin pain (Acute) Paresthesias (Acute) Obesity (Chronic) Migraine with aura (Acute) Urinary tract infection (Acute) Cervical radiculopathy (Acute) Anxiety (Chronic) Hypomagnesemia (Acute) Insect bite of leg, right (Acute) Testicle lump (Acute) Hamstring tendinitis of left thigh (Acute) Pes anserine bursitis (Acute) Hypernatremia (Acute) Cervical radiculopathy (Acute) Left-sided Flower's palsy (Acute) Constipation (Acute) Grief reaction (Chronic) Opiate dependence, continuous (Acute) 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 Possible 2' Methadone, Clnzpm (?). Surg eval (+)/No further action. History of electrolyte imbalance (Acute) Neck pain on left side (Acute) with shoulder, upper back pain.. torticollis, radiating into left hip/leg Pulmonary nodule 1 cm or greater in diameter (Chronic) Therapeutic opioid induced constipation (Acute) Sphincter of Oddi dysfunction (Chronic) Abnormal CT scan, kidney (Acute) Intrahepatic bile duct dilation (Acute) Common bile duct dilatation (Chronic) Has been dilated for quite some time, now more-so. Normal LFTs. Known gallstones. Iatrogenic hypocalcemia (Acute) Multiple endocrine neoplasia type I (Chronic) Depression (Chronic) Hypocalcemia (Chronic) Elevated parathyroid hormone (Acute) Family history of coronary arteriosclerosis (Chronic) Father of IN at 50, mother had IN at 42 Severe anxiety with panic (Chronic) Medical History CKD (chronic kidney disease) stage 2, GFR 60-89 ml/min GFR 64-65, with Hx FLORESITA and GFR < 45 Primary hyperparathyroidism Complex medical condition Serious electrolyte imbalances, with gynecomastia, possible MEN Dx, CKD and anemia with baseline anxiety and Hx PTSD. Hypocalcemia Anxiety Depression Hyperlipidemia Family history of multiple endocrine neoplasia, type 1 PTSD (post-traumatic stress disorder) Per pt. states no triggers at this time. Surgical History History of laparoscopic cholecystectomy (~11/2023) H/O parathyroidectomy Family History Mother Anxiety Asthma Depression Sister Anxiety Depression Father Cancer lung & stomach Depression Diabetes Hypertension MEN 1 (multiple endocrine neoplasia) Social History Smoking/Tobacco Use Status: Never Smoking risk assessment performed?: Yes Alcohol Intake: never Drug use: Current Sobriety Substance use type: former substance user Adopted: No Caregiver/Support person: No Foster care: No Household members: none Housing: apartment Number of Children: 0 Communication Needs: None Education Level: high school Do you need help understanding health information?: Never 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[employer] Pets and animals: Yes (Ally) Pets and animals: dog(s) Sexually active: No Do you think of yourself as: straight/heterosexual Current gender identity: male What is your relationship status?: How often do you talk on the phone with friends or family?: twice per week How often do you get together with friends or relatives?: never Do you belong to any clubs or organized social groups?: no Panel score (0-1 are the most socially isolated patients): 0 What type of physical activity do you participate in: walking Duration: 15-30 minutes/day Frequency: 5-6 times per week Maryam/Mormonism: Caodaism Special maryam needs: No Seatbelt use: always Helmet use: Yes Helmet use: always Drive intox or ride w/intox courier 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
== END 2024-02-09 16:41 | disposition left against medical advice (07) ==
PROVIDERS: Emergency Provider Emergency Medicine; PCP Family Medicine
DX: R51.9 Headache, unspecified (principal)
CPT/HCPCS: 96372; 99284; 70450; 99283; J1100; J1885

== ENCOUNTER 2024-02-14 21:45 | Emergency (ER) | payer OTHER, SELFPAY ==
--- NOTE | 2024-02-14 21:45 | RT.EKG_ITS ---
APPROVED REPORT Exam: Resting ECG Reason for Exam: chest pain Patient Location: E HR:134 bpm ECG Measurements Heart Rate 134 AXIS WA 146 P 53 QRSd 98 QRS 103 QT 299 T 17 QTc 447 Conclusion Sinus tachycardia...rate> 99 Right axis deviation...QRS axis (100,269) Sinus tach at 134 with borderline right axis. Normal interval and ST. There are no significant changes compared to prior EKG performed on 02/03/2024 at 14:22.
[2024-02-14 21:46] VITALS: BP 136/93; PULSE 118; RESP 18; TEMP 36.3; O2SAT 98
[2024-02-14 21:54] VITALS: RESP 16
--- NOTE | 2024-02-14 21:58 | ED.GENADUL_ITS ---
Discharge Plan Disposition Patient Disposition: Home Condition: Good Discharge Details Clinical Impression: Paresthesias, Hypomagnesemia Primary Care Provider: Brendon Vivar ED Provider: Santiago Ibarra Comfrey Meds and New Rx's Prescriptions: Continued gabapentin 300 mg capsule 300 mg PO BID Qty: 180 3RF cyclobenzaprine 10 mg tablet 10 mg PO TID PRN (Reason: muscle spasm) Qty: 30 3RF simethicone 125 mg tablet,chewable 125 mg PO QID PRN (Reason: abdominal distention) Qty: 20 3RF clonazepam 1 mg tablet 1 mg PO BID Qty: 56 0RF methadone 10 mg/5 mL solution 105 mg PO QAM polyethylene glycol 3350 17 gram/dose powder 17 g PO DAILY PRN omeprazole 40 mg capsule,delayed release(DR/EC) 40 mg PO DAILY Qty: 90 3RF eletriptan 20 mg tablet See Rx Instructions PO .COMPLEX Qty: 20 0RF Rx Instructions: take 1 tab at onset of headache; if no relief may repeat 1 tab after at least 2 hrs; max = 4 tabs/24 hr PO calcium carbonate [Tums] 200 mg calcium (500 mg) tablet,chewable 2,000 mg PO BID prochlorperazine maleate 5 mg tablet 5 mg PO TID PRN (Reason: acute nausea) Qty: 30 0RF ondansetron 4 mg tablet,disintegrating 4 mg PO Q6H PRN (Reason: nausea and vomiting) Qty: 20 0RF calcitriol 0.5 mcg capsule 1 mcg PO BID magnesium gluconate 27 mg magnesium (500 mg) tablet 13.5 mg PO TID Qty: 60 3RF Discharge Instructions Care Plan Goals: Your electrolyte levels revealed mild hypercalcemia, therefore, return to your normal dosing of calcium. Your magnesium was slightly low and you received IV repletion here. Resume previous medications. Follow-up with PCP and atg java developer. Return to ED with concerns, chest pain, syncope, shortness of breath. Referrals: Brendon Vivar DO [Primary Care Provider] - [facility] General Mode of arrival: ambulatory . Date/Time Provider Initiated Documentation: 02/14/24 21:58 . Limitations to Documentation: no limitations . Information obtained by: patient, RN notes reviewed and old records reviewed . HPI Narrative: Patient presents to ED with complaints of numbness and tingling around his lips, hands, feet with fast heart rate which he relates to either low calcium or low magnesium or both. Patient has many visits to the ER for similar presentations as well as others. Currently denies fever, cough, shortness of breath, abdominal pain, vomiting, diarrhea. Increased his oral calcium and magnesium to try to correct on his own. Continues to feel like he is getting worse and came in for evaluation. Related Data Home Medications ?Medication ?Instructions ?Recorded ?Confirmed calcium carbonate (Tums) 2,000 mg PO BID 02/02/23 02/14/24 methadone 10 mg/5 mL oral solution 105 mg PO QAM 06/12/23 02/14/24 polyethylene glycol 3350 17 17 g PO DAILY PRN 06/12/23 02/14/24 gram/dose oral powder gabapentin 300 mg capsule 300 mg PO BID #180 caps 06/23/23 02/14/24 omeprazole 40 mg capsule,delayed 40 mg PO DAILY #90 caps 07/21/23 02/14/24 release prochlorperazine maleate 5 mg 5 mg PO TID PRN acute nausea #30 09/06/23 02/14/24 tablet tabs magnesium gluconate 27 mg 13.5 mg (1/2 x 27 mg magnesium 11/21/23 02/14/24 magnesium (500 mg) tablet (500 mg)) PO TID #60 tabs cyclobenzaprine 10 mg tablet 10 mg PO TID PRN muscle spasm #30 12/04/23 02/14/24 tabs ondansetron 4 mg disintegrating 4 mg PO Q6H PRN nausea and 12/15/23 02/14/24 tablet vomiting #20 tabs calcitriol 0.5 mcg capsule 1 mcg PO BID 02/01/24 02/14/24 eletriptan 20 mg tablet See Rx Instructions PO .COMPLEX 02/05/24 02/14/24 #20 tabs clonazepam 1 mg tablet 1 mg PO BID #56 tabs 02/13/24 02/14/24 simethicone 125 mg chewable tablet 125 mg PO QID PRN abdominal 02/13/24 02/14/24 distention #20 tabs Previous Rx's ?Medication ?Instructions ?Recorded gabapentin 300 mg capsule 300 mg PO BID #180 caps 06/23/23 omeprazole 40 mg capsule,delayed 40 mg PO DAILY #90 caps 07/21/23 release prochlorperazine maleate 5 mg 5 mg PO TID PRN acute nausea #30 09/06/23 tablet tabs magnesium gluconate 27 mg 13.5 mg (1/2 x 27 mg magnesium 11/21/23 magnesium (500 mg) tablet (500 mg)) PO TID #60 tabs cyclobenzaprine 10 mg tablet 10 mg PO TID PRN muscle spasm #30 12/04/23 tabs ondansetron 4 mg disintegrating 4 mg PO Q6H PRN nausea and 12/15/23 tablet vomiting #20 tabs eletriptan 20 mg tablet See Rx Instructions PO .COMPLEX 02/05/24 #20 tabs clonazepam 1 mg tablet 1 mg PO BID #56 tabs 02/13/24 simethicone 125 mg chewable tablet 125 mg PO QID PRN abdominal 02/13/24 distention #20 tabs Allergies Allergy/AdvReac Type Severity Reaction Status Date / Time codeine Allergy Intermediate pass out Verified 02/14/24 21:50 Penicillins Allergy Skin Rash Verified 02/14/24 21:50 amoxicillin AdvReac Intermediate Nausea Verified 02/14/24 21:50 dextromethorphan (From AdvReac Intermediate Other (See Verified 02/14/24 21:50 NyQuil) Comment) doxylamine (From NyQuil) AdvReac Intermediate Other (See Verified 02/14/24 21:50 Comment) pseudoephedrine (From NyQuil) AdvReac Intermediate Other (See Verified 02/14/24 21:50 Comment) General Stated Complaint: GenMedical ADRIANA: 3 Review of Systems Narrative: Per HPI Exam Narrative Exam Narrative: Const: WDWN male in NAD. VS per triage. HEENT: NC/AT. Normal facial exam. Neck: Supple. Trachea midline. Lungs: Normal respiratory effort. Lungs are clear. Cor: RRR without murmur. Good radial pulses. GI: Soft/ND/NT. Neuro: A+O x 3. Normal speech, mentation, gait. Cranial nerves II - XII grossly intact. No gross motor or sensory deficit. Ext: No C/C/E. Course Vital Signs Vital signs: Vital Signs Temperature 97.3 F L 02/14/24 21:46 Pulse 118 H 02/14/24 21:46 Respiratory Rate 18 02/14/24 21:46 Blood Pressure 136/93 H 02/14/24 21:46 Pulse Oximetry 98 02/14/24 21:46 Temperature 97.3 F L 02/14/24 21:46 Temperature Source Temporal Artery Scan 02/14/24 21:46 Pulse 118 H 02/14/24 21:46 Respiratory Rate 16 02/14/24 21:54 Respiratory Effort Normal, Non-Labored 02/14/24 21:54 Respiratory Depth Normal 02/14/24 21:54 Respiratory Pattern Normal 02/14/24 21:54 Blood Pressure 136/93 H 02/14/24 21:46 Blood Pressure Position Sitting 02/14/24 21:46 Pulse Oximetry 98 02/14/24 21:46 Oxygen Delivery Method Room Air 02/14/24 21:46 Oxygen Flow Rate 0 02/14/24 21:46 Medical Decision Making Patient presenting to ED with complaint of symptoms similar to when he has low calcium or magnesium. Denies any recent illness. Increased his oral medications at home without success. He is tachycardic. His EKG is otherwise unchanged. Will place IV, give fluids, check BMP, calcium, VBG. 00:00 - Patient's labs with hypercalcemia, likely from taking extra calcium and hypercapnia which she has had previously. No evidence of hyperventilation causing paresthesias. Calcium is also not likely to be causing his symptoms. Magnesium a little low at 1.7. Will replete with 1 g IV and finish his liter of LR. Lab Data Lab results reviewed: Yes I reviewed the patient's lab results. ECG Data Attestation: I personally reviewed and interpreted this ECG (s) as follows: Prior ECG tracings: available for review Interpretation: Sinus tachycardia but no significant change from previous. 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 Possible 2' Methadone, Clnzpm (?). Surg eval (+)/No further action. History of electrolyte imbalance (Acute) Neck pain on left side (Acute) with shoulder, upper back pain.. torticollis, radiating into left hip/leg Pulmonary nodule 1 cm or greater in diameter (Chronic) Therapeutic opioid induced constipation (Acute) Sphincter of Oddi dysfunction (Chronic) Abnormal CT scan, kidney (Acute) Intrahepatic bile duct dilation (Acute) Common bile duct dilatation (Chronic) Has been dilated for quite some time, now more-so. Normal LFTs. Known gallstones. Iatrogenic hypocalcemia (Acute) Multiple endocrine neoplasia type I (Chronic) Depression (Chronic) Hypocalcemia (Chronic) Elevated parathyroid hormone (Acute) Family history of coronary arteriosclerosis (Chronic) Father of PR at 50, mother had PR at 42 Severe anxiety with panic (Chronic) Medical History CKD (chronic kidney disease) stage 2, GFR 60-89 ml/min GFR 64-65, with Hx FLORESITA and GFR < 45 Primary hyperparathyroidism Complex medical condition Serious electrolyte imbalances, with gynecomastia, possible MEN Dx, CKD and anemia with baseline anxiety and Hx PTSD. Hypocalcemia Anxiety Depression Hyperlipidemia Family history of multiple endocrine neoplasia, type 1 PTSD (post-traumatic stress disorder) Per pt. states no triggers at this time. Surgical History History of laparoscopic cholecystectomy (~11/2023) H/O parathyroidectomy Family History Mother Anxiety Asthma Depression Sister Anxiety Depression Father Cancer lung & stomach Depression Diabetes Hypertension MEN 1 (multiple endocrine neoplasia) Social History Smoking/Tobacco Use Status: Never Smoking risk assessment performed?: Yes Alcohol Intake: never Drug use: Current Sobriety Substance use type: former substance user Adopted: No Caregiver/Support person: No Foster care: No Household members: none Housing: apartment Number of Children: 0 Communication Needs: None Education Level: high school Do you need help understanding health information?: Never 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 Pets and animals: Yes (Ally) Pets and animals: dog(s) Sexually active: No Do you think of yourself as: straight/heterosexual Current gender identity: male What is your relationship status?: How often do you talk on the phone with friends or family?: twice per week How often do you get together with friends or relatives?: never Do you belong to any clubs or organized social groups?: no Panel score (0-1 are the most socially isolated patients): 0 What type of physical activity do you participate in: walking Duration: 15-30 minutes/day Frequency: 5-6 times per week Maryam/Jainism: Caodaism Special maryam needs: No Seatbelt use: always Helmet use: Yes Helmet use: always Drive intox or ride w/intox otr company 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
[2024-02-14 23:36] LABS: BE (Venous) 12 mmol/L (-2-3); HCO3 (Venous) 37 mmol/L (23-28); O2 Sat (Venous) 54 %; TCO2 (Venous) 34 mmol/L (24-29); pH (Venous) 7.38 (7.31-7.41); pO2 (Venous) 30 mmHg
[2024-02-14] MEDS: Lactated Ringers 1,000 ML 1000 ML IV (23:36)
[2024-02-14 23:38] LABS: pCO2 (Venous) 62 mmHg (41-51)
[2024-02-14 23:48] LABS: Anion Gap 6.7 mmol/L (3-11); BUN 11 mg/dL (7-18); CO2 34.3 mmol/L (21.0-32.0); CREATININE 1.4 mg/dL (0.70-1.30); Calcium 11.2 mg/dL (8.5-10.1); Chloride 99 mmol/L (98-107); Estimated GFR 69.34 (mL/min/1.73m2); Glucose 102 mg/dL (74-106); Magnesium 1.7 mg/dL (1.8-2.4); Potassium 3.6 mmol/L (3.5-5.1); Sodium 140 mmol/L (136-145)
[2024-02-15] MEDS: MAGNESIUM SULFATE 1 GM/100 ML BAG IVINF (00:25)
[2024-02-15 01:41] VITALS: PULSE 100; RESP 13; O2SAT 96
[2024-02-15 01:43] VITALS: BP 127/94; PULSE 97; PULSE 99; RESP 23; O2SAT 95
[2024-02-15 01:47] VITALS: BP 127/94; PULSE 90; RESP 23; O2SAT 95
== END 2024-02-15 01:47 | disposition home or self-care (01) ==
PROVIDERS: Emergency Provider Emergency Medicine; PCP Family Medicine
DX: R20.2 Paresthesia of skin (principal); E83.42 Hypomagnesemia
CPT/HCPCS: 36415; 80048; 82805; 93005; 96361; 96365; 99284; 83735; 93010; 99283; J3475

== ENCOUNTER 2024-02-17 00:20 | Emergency (ER) | payer OTHER, SELFPAY ==
--- NOTE | 2024-02-17 00:15 | RT.EKG_ITS ---
APPROVED REPORT Exam: Resting ECG Reason for Exam: short of breath Patient Location: E HR:131 bpm ECG Measurements Heart Rate 131 AXIS NM 141 P 42 QRSd 97 QRS 92 QT 306 T -12 QTc 453 Conclusion Sinus tachycardia...rate> 99 Otherwise normal ECG There are no significant changes compared to prior EKG performed on 02/14/2024 at 21:46.
[2024-02-17 00:27] VITALS: BP 142/107; PULSE 138; RESP 18; TEMP 36.7; O2SAT 98
--- NOTE | 2024-02-17 00:30 | DI.CT_ITS ---
Exam(s) CT CHEST PE CTA EXAM: CT CHEST PE CTA CLINICAL HISTORY: tachycardia, SOB, prior hx of DVT. TECHNIQUE: Imaging Protocol: Axial CT angiography was performed with multi-slice acquisition and mu lti-planar and/or 3D reconstructions. CONTRAST MATERIAL: Intravenous: Omnipaque 350 contrast volume:100 mL COMPARISON: Comparison is made with prior examinations. FINDINGS: Tracheobronchial tree: Patent where visualized. No bronchiectasis. Pulmonary parenchyma: No consolidation or dominant measurable mass. No architectural distortion. Pulmonary Arteries: No evidence of filling defect to suggest pulmonary emboli. Mediastinum and Jessika: No dominant adenopathy or fluid collection. The esophagus is unremarkable. Visualized thyroid gland: Unremarkable. Pleura: No effusion or pneumothorax. Heart: The heart is not dilated. No coronary artery calcifications are seen. No pericardial effusion. Aorta: Thoracic aorta non-dilated. No evidence of dissection. Upper abdomen: Unremarkable. Soft tissues: Bilateral gynecomastia. Bones: Within normal limits for the patient's age. IMPRESSION: 1. No evidence of pulmonary embolism, thoracic aortic dissection or aneurysm. 2. No acute pulmonary process. RADIATION DOSE DELIVERED: 226.59mGy.cm Total DLP DATA REPOSITORY: All CT scans at this facility are submitted to the National Radiology Data Registry (NRDR) Dose Index Registry (DIR) with the [employer] (A[employer]). RADIATION OPTIMIZATION: All CT scans at this facility use at least one of these dose optimization te chniques: automated exposure control; mA and/or kV adjustment per patient size (includes targeted exa ms where dose is matched to clinical indication); or iterative reconstruction.
[2024-02-17 00:33] VITALS: RESP 24
[2024-02-17] MEDS: Lactated Ringers 1,000 ML 1000 ML IV (00:53)
[2024-02-17] MEDS: Normal Saline - Diluent 50 ML VIAL IJ (01:11)
[2024-02-17] MEDS: Omnipaque 350 MG/ML 100 ML BTL IJ (01:12)
--- NOTE | 2024-02-17 01:24 | ED.GENADUL_ITS ---
Discharge Plan Disposition Patient Disposition: Home Condition: Good Discharge Details Clinical Impression: Left groin pain Primary Care Provider: Brendon Vivar ED Provider: Santiago Ibarra Meds and New Rx's Prescriptions: Continued gabapentin 300 mg capsule 300 mg PO BID Qty: 180 3RF cyclobenzaprine 10 mg tablet 10 mg PO TID PRN (Reason: muscle spasm) Qty: 30 3RF simethicone 125 mg tablet,chewable 125 mg PO QID PRN (Reason: abdominal distention) Qty: 20 3RF clonazepam 1 mg tablet 1 mg PO BID Qty: 56 0RF methadone 10 mg/5 mL solution 105 mg PO QAM polyethylene glycol 3350 17 gram/dose powder 17 g PO DAILY PRN omeprazole 40 mg capsule,delayed release(DR/EC) 40 mg PO DAILY Qty: 90 3RF eletriptan 20 mg tablet See Rx Instructions PO .COMPLEX Qty: 20 0RF Rx Instructions: take 1 tab at onset of headache; if no relief may repeat 1 tab after at least 2 hrs; max = 4 tabs/24 hr PO calcium carbonate [Tums] 200 mg calcium (500 mg) tablet,chewable 2,000 mg PO BID prochlorperazine maleate 5 mg tablet 5 mg PO TID PRN (Reason: acute nausea) Qty: 30 0RF ondansetron 4 mg tablet,disintegrating 4 mg PO Q6H PRN (Reason: nausea and vomiting) Qty: 20 0RF calcitriol 0.5 mcg capsule 1 mcg PO BID magnesium gluconate 27 mg magnesium (500 mg) tablet 13.5 mg PO TID Qty: 60 3RF Discharge Instructions Additional Instructions: You were seen in the ED for left groin pain which is all likely musculoskeletal in nature. Your D-dimer and chest CT are negative for any evidence of clot. Your heart rate came down on its own and your oxygen level is normal. You may use acetaminophen or ibuprofen for your groin pain. Ice will likely help as wel l. Follow-up with primary care in 1 to 2 weeks if not improved. Return to ED for worsening shortness of breath, chest pain, other concerns. HPI General Mode of arrival: ambulatory . Date/Time Provider Initiated Documentation: 02/17/24 00:22 . Limitations to Documentation: no limitations . Information obtained by: patient and RN notes reviewed . HPI Narrative: Patient presenting to ED with complaint of left upper thigh and groin pain that he reports has been present for a few days. Seems worse tonight. Reports this afternoon he developed shortness of breath that is worse with exertion and now at rest. Concerned that he has a recurrent blood clot. Reports having 1 after his parathyroid surgery in the past. Denies having any type of chest pain or back pain. Denies any distal lower extremity symptoms. Denies any abdominal pain. Related Data Home Medications ?Medication ?Instructions ?Recorded ?Confirmed calcium carbonate (Tums) 2,000 mg PO BID 02/02/23 02/17/24 methadone 10 mg/5 mL oral solution 105 mg PO QAM 06/12/23 02/17/24 polyethylene glycol 3350 17 17 g PO DAILY PRN 06/12/23 02/17/24 gram/dose oral powder gabapentin 300 mg capsule 300 mg PO BID #180 caps 06/23/23 02/17/24 omeprazole 40 mg capsule,delayed 40 mg PO DAILY #90 caps 07/21/23 02/17/24 release prochlorperazine maleate 5 mg 5 mg PO TID PRN acute nausea #30 09/06/23 02/17/24 tablet tabs magnesium gluconate 27 mg 13.5 mg (1/2 x 27 mg magnesium 11/21/23 02/17/24 magnesium (500 mg) tablet (500 mg)) PO TID #60 tabs cyclobenzaprine 10 mg tablet 10 mg PO TID PRN muscle spasm #30 12/04/23 02/17/24 tabs ondansetron 4 mg disintegrating 4 mg PO Q6H PRN nausea and 12/15/23 02/17/24 tablet vomiting #20 tabs calcitriol 0.5 mcg capsule 1 mcg PO BID 02/01/24 02/17/24 eletriptan 20 mg tablet See Rx Instructions PO .COMPLEX 02/05/24 02/17/24 #20 tabs clonazepam 1 mg tablet 1 mg PO BID #56 tabs 02/13/24 02/17/24 simethicone 125 mg chewable tablet 125 mg PO QID PRN abdominal 02/13/24 02/17/24 distention #20 tabs Previous Rx's ?Medication ?Instructions ?Recorded gabapentin 300 mg capsule 300 mg PO BID #180 caps 06/23/23 omeprazole 40 mg capsule,delayed 40 mg PO DAILY #90 caps 07/21/23 release prochlorperazine maleate 5 mg 5 mg PO TID PRN acute nausea #30 09/06/23 tablet tabs magnesium gluconate 27 mg 13.5 mg (1/2 x 27 mg magnesium 11/21/23 magnesium (500 mg) tablet (500 mg)) PO TID #60 tabs cyclobenzaprine 10 mg tablet 10 mg PO TID PRN muscle spasm #30 12/04/23 tabs ondansetron 4 mg disintegrating 4 mg PO Q6H PRN nausea and 12/15/23 tablet vomiting #20 tabs eletriptan 20 mg tablet See Rx Instructions PO .COMPLEX 02/05/24 #20 tabs clonazepam 1 mg tablet 1 mg PO BID #56 tabs 02/13/24 simethicone 125 mg chewable tablet 125 mg PO QID PRN abdominal 02/13/24 distention #20 tabs Allergies Allergy/AdvReac Type Severity Reaction Status Date / Time codeine Allergy Intermediate pass out Verified 02/17/24 00:25 Penicillins Allergy Skin Rash Verified 02/17/24 00:25 amoxicillin AdvReac Intermediate Nausea Verified 02/17/24 00:25 dextromethorphan (From AdvReac Intermediate Other (See Verified 02/17/24 00:25 NyQuil) Comment) doxylamine (From NyQuil) AdvReac Intermediate Other (See Verified 02/17/24 00:25 Comment) pseudoephedrine (From NyQuil) AdvReac Intermediate Other (See Verified 02/17/24 00:25 Comment) General Stated Complaint: SOB/SuddenOnset ADRIANA: 3 Review of Systems Narrative: Per HPI Exam Narrative Exam Narrative: Const: Overweight male in NAD. VS per triage. HEENT: NC/AT. Normal facial exam. Neck: Supple. Trachea midline. Lungs: Normal respiratory effort. Lungs are clear. Cor: RRR without murmur. Good radial pulses. GI: Soft/ND/NT. Neuro: A+O x 3. Normal speech, mentation, gait. Cranial nerves II - XII grossly intact. No gross motor or sensory deficit. Ext: No C/C/E. No calf tenderness. Tenderness that is mild in the upper left medial thigh along what feels like it of one of his quad tendons. No erythema. No swelling. Course Vital Signs Vital signs: Vital Signs Temperature 98.0 F 02/17/24 00:27 Pulse 138 H 02/17/24 00:27 Respiratory Rate 18 02/17/24 00:27 Blood Pressure 142/107 H 02/17/24 00:27 Pulse Oximetry 98 02/17/24 00:27 Temperature 98.0 F 02/17/24 00:27 Temperature Source Temporal Artery Scan 02/17/24 00:27 Pulse 138 H 02/17/24 00:27 Respiratory Rate 24 02/17/24 00:33 Respiratory Effort Short of Breath 02/17/24 00:33 Respiratory Pattern Normal 02/17/24 00:33 Blood Pressure 142/107 H 02/17/24 00:27 Blood Pressure Position Sitting 02/17/24 00:27 Pulse Oximetry 98 02/17/24 00:27 Oxygen Delivery Method Room Air 02/17/24 00:27 Oxygen Flow Rate 0 02/17/24 00:27 Pain Level 4 02/17/24 00:27 Comment Took Tylenol 5 PM. 02/17/24 00:27 Medical Decision Making Patient arrives with left groin and upper thigh pain that I think is very likely musculoskeletal in nature. He reports having previous history of DVT and has been feeling short of breath since this evening. Saturations are normal. However heart rate on arrival is 140. This is not necessarily abnormal for the patient as he typically is tachycardic on initial arrival to the ED. EKG is sinus tachycardia with no acute ST changes noted. Given his complaint of shortness of breath with heart rates of 130 - 140, left medial thigh pain and prior history of DVT will obtain CTA of chest. Will also obtain D-dimer. If both are negative would not continue pursuit of clot and would presume musculoskeletal left groin pain which is what I think this is. Patient's D-dimer is negative. CTA of the chest with no pulmonary embolus and no acute pathology noted otherwise. Patient's heart rate has normalized. Will plan discharge home to follow-up with primary care as needed. May use acetaminophen or ibuprofen for the groin discomfort. Return precautions provided. Lab Data Lab results reviewed: Yes I reviewed the patient's lab results. ECG Data Attestation: I personally reviewed and interpreted this ECG (s) as follows: Prior ECG tracings: available for review [facility] All Active Problems (Updated 02/17/24 @ 02:23 by Santiago Ibarra MD) Left groin pain (Acute) Paresthesias (Acute) Obesity (Chronic) Migraine with aura (Acute) Urinary tract infection (Acute) Cervical radiculopathy (Acute) Anxiety (Chronic) Hypomagnesemia (Acute) Insect bite of leg, right (Acute) Testicle lump (Acute) Hamstring tendinitis of left thigh (Acute) Pes anserine bursitis (Acute) Hypernatremia (Acute) Cervical radiculopathy (Acute) Left-sided Flower's palsy (Acute) Constipation (Acute) Grief reaction (Chronic) Opiate dependence, continuous (Acute) 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 Possible 2' Methadone, Clnzpm (?). Surg eval (+)/No further action. History of electrolyte imbalance (Acute) Neck pain on left side (Acute) with shoulder, upper back pain.. torticollis, radiating into left hip/leg Pulmonary nodule 1 cm or greater in diameter (Chronic) Therapeutic opioid induced constipation (Acute) Sphincter of Oddi dysfunction (Chronic) Abnormal CT scan, kidney (Acute) Intrahepatic bile duct dilation (Acute) Common bile duct dilatation (Chronic) Has been dilated for quite some time, now more-so. Normal LFTs. Known gallstones. Iatrogenic hypocalcemia (Acute) Multiple endocrine neoplasia type I (Chronic) Depression (Chronic) Hypocalcemia (Chronic) Elevated parathyroid hormone (Acute) Family history of coronary arteriosclerosis (Chronic) Father of NE at 50, mother had NE at 42 Severe anxiety with panic (Chronic) Medical History CKD (chronic kidney disease) stage 2, GFR 60-89 ml/min GFR 64-65, with Hx FLORESITA and GFR < 45 Primary hyperparathyroidism Complex medical condition Serious electrolyte imbalances, with gynecomastia, possible MEN Dx, CKD and anemia with baseline anxiety and Hx PTSD. Hypocalcemia Anxiety Depression Hyperlipidemia Family history of multiple endocrine neoplasia, type 1 PTSD (post-traumatic stress disorder) Per pt. states no triggers at this time. Surgical History History of laparoscopic cholecystectomy (~11/2023) H/O parathyroidectomy Family History Mother Anxiety Asthma Depression Sister Anxiety Depression Father Cancer lung & stomach Depression Diabetes Hypertension MEN 1 (multiple endocrine neoplasia) Social History Smoking/Tobacco Use Status: Never Smoking risk assessment performed?: Yes Alcohol Intake: never Drug use: Current Sobriety Substance use type: former substance user Adopted: No Caregiver/Support person: No Foster care: No Household members: none Housing: apartment Number of Children: 0 Communication Needs: None Education Level: high school Do you need help understanding health information?: Never current occupation: [employer] Pets and animals: Yes (Ally) Pets and animals: dog(s) Sexually active: No Do you think of yourself as: straight/heterosexual Current gender identity: male What is your relationship status?: How often do you talk on the phone with friends or family?: twice per week How often do you get together with friends or relatives?: never Do you belong to any clubs or organized social groups?: no Panel score (0-1 are the most socially isolated patients): 0 What type of physical activity do you participate in: walking Duration: 15-30 minutes/day Frequency: 5-6 times per week Maryam/Confucianism: Muslim Special maryam needs: No Seatbelt use: always Helmet use: Yes Helmet use: always Drive intox or ride w/intox [employer] company flatbed 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
[2024-02-17 01:33] LABS: D-Dimer 452 ng/mlFEU (<500)
--- NOTE | 2024-02-17 02:14 | DI.VRAD_ITS ---
PROCEDURE INFORMATION: Exam: CTA Chest With Contrast Exam date and time: 02/17/2024 12:52 AM Age: 28 years old Clinical indication: Shortness of breath and other: Tachycardia, SOB, prior HX of dvt TECHNIQUE: Imaging protocol: Computed tomographic angiography of the chest with contrast. Exam focused on the arteries. 3D rendering (Not supervised by radiologist): MIP and/or 3D reconstructed images were created by the technologist. Contrast material: OMNI 350; Contrast volume: 100 ml; Contrast route: INTRAVENOUS (IV); COMPARISON: CT CHEST PE CTA 12/02/2023 11:09 AM FINDINGS: Pulmonary arteries: No pulmonary embolism identified. Aorta: No thoracic aortic aneurysm or dissection. Thyroid: Thyroid gland partially excluded from view but grossly unremarkable through its visualized portion. Lungs: No pulmonary consolidation. Pleural spaces: No pleural effusion or pneumothorax. Heart: Normal-sized heart. Esophagus: Small amount of fluid in the distal esophagus suspicious for gastroesophageal reflux. Lymph nodes: No pathologically enlarged mediastinal or hilar lymph nodes. Gallbladder and biliary ducts: Prior cholecystectomy with postop biliary dilatation. Bones/joints: Lower ribs partially excluded from view and incompletely evaluated. Otherwise, no acute fracture seen among the bones of the chest. Soft tissues: Moderate symmetric gynecomastia. IMPRESSION: No active disease is seen in the chest. Dictated and Authenticated by: Norbert Fields MD. Ordering:ROSARIO Henderson MD
[2024-02-17 02:23] VITALS: BP 142/102; PULSE 93; RESP 18; O2SAT 95
== END 2024-02-17 02:35 | disposition home or self-care (01) ==
PROVIDERS: Emergency Provider Emergency Medicine; PCP Family Medicine
DX: R10.32 Left lower quadrant pain (principal); R06.02 Shortness of breath; Z86.718 Personal history of other venous thrombosis and embolism
CPT/HCPCS: 36415; 71275; 93005; 96360; 99285; 85379; 93010; 99283; J3490

== ENCOUNTER 2024-02-20 14:23 | Emergency (ER) | payer OTHER, SELFPAY ==
[2024-02-20] VITALS (7 sets, daily range): BP systolic 133; BP diastolic 82; PULSE 82–126; RESP 15–18; TEMP 37.1; O2SAT 93
--- NOTE | 2024-02-20 14:15 | RT.EKG_ITS ---
APPROVED REPORT Exam: Resting ECG Reason for Exam: chest pain Patient Location: E HR:132 bpm ECG Measurements Heart Rate 132 AXIS SD 144 P 39 QRSd 96 QRS 110 QT 304 T 6 QTc 452 Conclusion Sinus tachycardia...rate> 99 Right axis deviation...QRS axis (100,269) Narrow complex sinus tachycardia at a rate of 132. Intervals within normal limits. Right axis devia tion similar to prior. No T wave inversions. T wave flattening in lead III. Mild ST segment left l ateral chest wall flattening. Similar to prior. Prior dated last week. No acute injury pattern.
--- NOTE | 2024-02-20 14:39 | W.ED.GENAD ---
Discharge Plan Disposition Patient Disposition: Home Discharge Details Clinical Impression: History of anxiety Primary Care Provider: Brendon Vivar ED Provider: Pedro Wolfe Home Meds and New Rx's Prescriptions: Continued gabapentin 300 mg capsule 300 mg PO BID Qty: 180 3RF cyclobenzaprine 10 mg tablet 10 mg PO TID PRN (Reason: muscle spasm) Qty: 30 3RF simethicone 125 mg tablet,chewable 125 mg PO QID PRN (Reason: abdominal distention) Qty: 20 3RF clonazepam 1 mg tablet 1 mg PO BID Qty: 56 0RF methadone 10 mg/5 mL solution 105 mg PO QAM polyethylene glycol 3350 17 gram/dose powder 17 g PO DAILY PRN omeprazole 40 mg capsule,delayed release(DR/EC) 40 mg PO DAILY Qty: 90 3RF eletriptan 20 mg tablet See Rx Instructions PO .COMPLEX Qty: 20 0RF Rx Instructions: take 1 tab at onset of headache; if no relief may repeat 1 tab after at least 2 hrs; max = 4 tabs/24 hr PO calcium carbonate [Tums] 200 mg calcium (500 mg) tablet,chewable 2,000 mg PO BID prochlorperazine maleate 5 mg tablet 5 mg PO TID PRN (Reason: acute nausea) Qty: 30 0RF ondansetron 4 mg tablet,disintegrating 4 mg PO Q6H PRN (Reason: nausea and vomiting) Qty: 20 0RF calcitriol 0.5 mcg capsule 1 mcg PO BID magnesium gluconate 27 mg magnesium (500 mg) tablet 13.5 mg PO TID Qty: 60 3RF Discharge Instructions Additional Instructions: You are seen in the emergency department for your anxiety. Your ECG showed no sign of heart attack. Your heart rate improved. You will benefit from primary care follow-up next week. As we discussed if you pass out develop vomiting or fevers please return to the emergency department. HPI General Date/Time Provider Initiated Documentation: 02/20/24 14:39. HPI Narrative: [facility] This is an overall well-appearing tachycardic but normothermic and not hypotensive 28-year-old male with history of panic attacks and recent presentation most consistent with recurrent panic attack. Patient history I did sharp resolved chest pain my suspicion is low for ACS and as result ECG was obtained which was nonischemic. Given resolved chest pain and prior history of panic attacks I did not send a troponin. No tearing quality to chest pain to suggest aortic dissection. No falls and equal breath sounds without pneumothorax. Patient has a dry cough will swab for COVID. Patient has not been vomiting to suggest increased risk for esophageal rupture. No pain out of proportion to suggest necrotizing soft tissue infection. No fevers to suggest pneumonia. No calf pain or shortness of breath so my suspicion is low for DVT so I did not send her D-dimer. No rash to chest to suggest zoster. Not hypotensive nor dialysis patients without tamponade. 3:38 PM Repeat heart rate 91 bpm. Patient I discussed return indications including any fevers nausea vomiting cough or shortness of breath. He understood his return indications for discharge with empiric trial of expectant outpatient management. Chronic conditions affecting the care of the patient: Prior panic attacks History obtained from an outside historian: N/A External record review: N/A Diagnostic interpretations performed by me: Per my independent interpretation chest x-ray shows: Per my independent interpretation EKG shows: Narrow complex sinus tachycardia at a rate of 132. Intervals within normal limits. Right axis deviation similar to prior. No T wave inversions. T wave flattening in lead III. Mild ST segment left lateral chest wall flattening. Similar to prior. Prior dated last week. No acute injury pattern. ]Medications: Hydroxyzine Social determinants of health affecting disposition: N/A Management discussed with: N/A Treatment/interventions considered: Response to therapies provided: [] HPI This is a 28-year-old male with history of panic attacks prior to the emergency department via private vehicle in the setting of panic attack. Patient notes that he has had irregular heart rate over the past several days. He feels that his symptoms are rapid. He had a sharp episode of transient chest pain that radiated into his left neck. He subsequently felt anxiety and PTSD. He has no sick contacts. Has not had any fevers but he has a dry cough. He has not been vomiting. He has remote history of a DVT but has no calf pain at the moment and no shortness of breath. No routine tobacco, ethanol, and illicits. No recent falls. Has prescription for clonazepam which he takes regularly. Denies any recent foreign travel. Exam General: Well-appearing in no acute distress speaking in complete sentences. Head: Normocephalic, atraumatic. Eye: Extraocular eye movements intact. No conjunctival injection. No scleral icterus. Ear, nose, mouth, throat: Grossly normal inspection. Normal voice, handling secretions normally. Neck: Trachea midline. Cardiovascular: Well-perfused distal extremities. Rapid regular rate Respiratory: Nonlabored respiration. Clear lungs Gastrointestinal: Nondistended abdomen. Soft nontender. Musculoskeletal: No edema. Moving all 4 extremities spontaneously. Skin: Normal for age and race, grossly normal temperature and turgor. No acute rash. Neurologic: Alert and appropriate, no apparent acute deficits. Psychiatric: Mood and manner are appropriate. Grooming and personal hygiene are appropriate. Related Data Home Medications ?Medication ?Instructions ?Recorded ?Confirmed calcium carbonate (Tums) 2,000 mg PO BID 02/02/23 02/17/24 methadone 10 mg/5 mL oral solution 105 mg PO QAM 06/12/23 02/17/24 polyethylene glycol 3350 17 17 g PO DAILY PRN 06/12/23 02/17/24 gram/dose oral powder gabapentin 300 mg capsule 300 mg PO BID #180 caps 06/23/23 02/17/24 omeprazole 40 mg capsule,delayed 40 mg PO DAILY #90 caps 07/21/23 02/17/24 release prochlorperazine maleate 5 mg 5 mg PO TID PRN acute nausea #30 09/06/23 02/17/24 tablet tabs magnesium gluconate 27 mg 13.5 mg (1/2 x 27 mg magnesium 11/21/23 02/17/24 magnesium (500 mg) tablet (500 mg)) PO TID #60 tabs cyclobenzaprine 10 mg tablet 10 mg PO TID PRN muscle spasm #30 12/04/23 02/17/24 tabs ondansetron 4 mg disintegrating 4 mg PO Q6H PRN nausea and 12/15/23 02/17/24 tablet vomiting #20 tabs calcitriol 0.5 mcg capsule 1 mcg PO BID 02/01/24 02/17/24 eletriptan 20 mg tablet See Rx Instructions PO .COMPLEX 02/05/24 02/17/24 #20 tabs clonazepam 1 mg tablet 1 mg PO BID #56 tabs 02/13/24 02/17/24 simethicone 125 mg chewable tablet 125 mg PO QID PRN abdominal 02/13/24 02/17/24 distention #20 tabs Previous Rx's ?Medication ?Instructions ?Recorded gabapentin 300 mg capsule 300 mg PO BID #180 caps 06/23/23 omeprazole 40 mg capsule,delayed 40 mg PO DAILY #90 caps 07/21/23 release prochlorperazine maleate 5 mg 5 mg PO TID PRN acute nausea #30 09/06/23 tablet tabs magnesium gluconate 27 mg 13.5 mg (1/2 x 27 mg magnesium 11/21/23 magnesium (500 mg) tablet (500 mg)) PO TID #60 tabs cyclobenzaprine 10 mg tablet 10 mg PO TID PRN muscle spasm #30 12/04/23 tabs ondansetron 4 mg disintegrating 4 mg PO Q6H PRN nausea and 12/15/23 tablet vomiting #20 tabs eletriptan 20 mg tablet See Rx Instructions PO .COMPLEX 02/05/24 #20 tabs clonazepam 1 mg tablet 1 mg PO BID #56 tabs 02/13/24 simethicone 125 mg chewable tablet 125 mg PO QID PRN abdominal 02/13/24 distention #20 tabs Allergies Allergy/AdvReac Type Severity Reaction Status Date / Time codeine Allergy Intermediate pass out Verified 02/17/24 00:25 Penicillins Allergy Skin Rash Verified 02/17/24 00:25 amoxicillin AdvReac Intermediate Nausea Verified 02/17/24 00:25 dextromethorphan (From AdvReac Intermediate Other (See Verified 02/17/24 00:25 NyQuil) Comment) doxylamine (From NyQuil) AdvReac Intermediate Other (See Verified 02/17/24 00:25 Comment) pseudoephedrine (From NyQuil) AdvReac Intermediate Other (See Verified 02/17/24 00:25 Comment) General Stated Complaint: Chest Pain ADRIANA: 3 Course Vital Signs Vital signs: Vital Signs Temperature 37.1 C 02/20/24 14:26 Pulse 126 H 02/20/24 14:26 Respiratory Rate 18 02/20/24 14:26 Blood Pressure 133/82 02/20/24 14:26 Pulse Oximetry 93 02/20/24 14:26 Temperature 37.1 C 02/20/24 14:26 Temperature Source Oral 02/20/24 14:26 Pulse 126 H 02/20/24 14:26 Respiratory Rate 18 02/20/24 14:26 Blood Pressure 133/82 02/20/24 14:26 Blood Pressure Position Sitting 02/20/24 14:26 Pulse Oximetry 93 02/20/24 14:26 Oxygen Delivery Method Room Air 02/20/24 14:26 Oxygen Flow Rate 0 02/20/24 14:26 Pain Level 4 02/20/24 14:26 Medical Decision Making Quality:SDOH Health Related Social Needs: Health related social needs transpo insecurity PFSH All Active Problems (Updated 02/20/24 @ 15:36 by Pedro Wolfe MD) History of anxiety (Acute) Left groin pain (Acute) Paresthesias (Acute) Obesity (Chronic) Migraine with aura (Acute) Urinary tract infection (Acute) Cervical radiculopathy (Acute) Anxiety (Chronic) Hypomagnesemia (Acute) Insect bite of leg, right (Acute) Testicle lump (Acute) Hamstring tendinitis of left thigh (Acute) Pes anserine bursitis (Acute) Hypernatremia (Acute) Cervical radiculopathy (Acute) Left-sided Flower's palsy (Acute) Constipation (Acute) Grief reaction (Chronic) Opiate dependence, continuous (Acute) 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 Possible 2' Methadone, Clnzpm (?). Surg eval (+)/No further action. History of electrolyte imbalance (Acute) Neck pain on left side (Acute) with shoulder, upper back pain.. torticollis, radiating into left hip/leg Pulmonary nodule 1 cm or greater in diameter (Chronic) Therapeutic opioid induced constipation (Acute) Sphincter of Oddi dysfunction (Chronic) Abnormal CT scan, kidney (Acute) Intrahepatic bile duct dilation (Acute) Common bile duct dilatation (Chronic) Has been dilated for quite some time, now more-so. Normal LFTs. Known gallstones. Iatrogenic hypocalcemia (Acute) Multiple endocrine neoplasia type I (Chronic) Depression (Chronic) Hypocalcemia (Chronic) Elevated parathyroid hormone (Acute) Family history of coronary arteriosclerosis (Chronic) Father of NV at 50, mother had NV at 42 Severe anxiety with panic (Chronic) Medical History CKD (chronic kidney disease) stage 2, GFR 60-89 ml/min GFR 64-65, with Hx FLORESITA and GFR < 45 Primary hyperparathyroidism Complex medical condition Serious electrolyte imbalances, with gynecomastia, possible MEN Dx, CKD and anemia with baseline anxiety and Hx PTSD. Hypocalcemia Anxiety Depression Hyperlipidemia Family history of multiple endocrine neoplasia, type 1 PTSD (post-traumatic stress disorder) Per pt. states no triggers at this time. Surgical History History of laparoscopic cholecystectomy (~11/2023) H/O parathyroidectomy Family History Mother Anxiety Asthma Depression Sister Anxiety Depression Father Cancer lung & stomach Depression Diabetes Hypertension MEN 1 (multiple endocrine neoplasia) Social History Smoking/Tobacco Use Status: Never Smoking risk assessment performed?: Yes Alcohol Intake: never Drug use: Current Sobriety Substance use type: former substance user Adopted: No Caregiver/Support person: No Foster care: No Household members: none Housing: apartment Number of Children: 0 Communication Needs: None Education Level: high school Do you need help understanding health information?: Never current occupation: [employer] Pets and animals: Yes (Ally) Pets and animals: dog(s) Sexually active: No Do you think of yourself as: straight/heterosexual Current gender identity: male What is your relationship status?: How often do you talk on the phone with friends or family?: twice per week How often do you get together with friends or relatives?: never Do you belong to any clubs or organized social groups?: no Panel score (0-1 are the most socially isolated patients): 0 What type of physical activity do you participate in: walking Duration: 15-30 minutes/day Frequency: 5-6 times per week Maryam/Caodaism: Yazdanism Special maryam needs: No Seatbelt use: always Helmet use: Yes Helmet use: always Drive intox or ride w/intox 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
[2024-02-20] MEDS: hydrOXYzine HCL 25 MG TAB 50 MG PO (14:58)
== END 2024-02-20 15:40 | disposition home or self-care (01) ==
PROVIDERS: Emergency Provider Emergency Medicine; PCP Family Medicine
DX: F41.0 Panic disorder [episodic paroxysmal anxiety] (principal); R00.0 Tachycardia, unspecified; F41.9 Anxiety disorder, unspecified; N18.2 Chronic kidney disease, stage 2 (mild); E21.0 Primary hyperparathyroidism; E78.5 Hyperlipidemia, unspecified; Z86.718 Personal history of other venous thrombosis and embolism
CPT/HCPCS: 93005; 99283; 93010

== ENCOUNTER 2024-02-23 21:55 | Emergency (ER) | payer OTHER, SELFPAY ==
[2024-02-23] VITALS (15 sets, daily range): BP systolic 113–128; BP diastolic 66–86; PULSE 92–129; RESP 14–22; TEMP 36.6–36.9; O2SAT 95–100
--- NOTE | 2024-02-23 21:45 | RT.EKG_ITS ---
APPROVED REPORT Exam: Resting ECG Reason for Exam: LOW TJ Patient Location: E HR:122 bpm ECG Measurements Heart Rate 122 AXIS VT 161 P 42 QRSd 96 QRS 61 QT 326 T 5 QTc 465 Conclusion Sinus tachycardia 122 normal axis no stemi
--- NOTE | 2024-02-23 22:18 | ED.GENADUL_ITS ---
Discharge Plan Disposition Patient Disposition: Home Condition: Good Discharge Details Clinical Impression: Hypocalcemia, Hypomagnesemia Primary Care Provider: Brendon Vivar ED Provider: Kimberli Martinez Home Meds and New Rx's Prescriptions: Continued gabapentin 300 mg capsule 300 mg PO BID Qty: 180 3RF cyclobenzaprine 10 mg tablet 10 mg PO TID PRN (Reason: muscle spasm) Qty: 30 3RF simethicone 125 mg tablet,chewable 125 mg PO QID PRN (Reason: abdominal distention) Qty: 20 3RF clonazepam 1 mg tablet 1 mg PO BID Qty: 56 0RF methadone 10 mg/5 mL solution 105 mg PO QAM polyethylene glycol 3350 17 gram/dose powder 17 g PO DAILY PRN omeprazole 40 mg capsule,delayed release(DR/EC) 40 mg PO DAILY Qty: 90 3RF eletriptan 20 mg tablet See Rx Instructions PO .COMPLEX Qty: 20 0RF Rx Instructions: take 1 tab at onset of headache; if no relief may repeat 1 tab after at least 2 hrs; max = 4 tabs/24 hr PO prochlorperazine maleate 5 mg tablet 5 mg PO TID PRN (Reason: acute nausea) Qty: 30 0RF Held calcium carbonate [Tums] 200 mg calcium (500 mg) tablet,chewable 2,000 mg PO BID Hold Instructions: Resume on 02/25/24. Take double your normal dose on Friday; talk to your primary care doctor on Friday to discuss any further medication adjustments and repeat labs calcitriol 0.5 mcg capsule 1 mcg PO BID Hold Instructions: Resume on 02/25/24. Take double your normal dose on Friday; talk to your primary care doctor on Friday to discuss any further medication adjustments and repeat labs magnesium gluconate 27 mg magnesium (500 mg) tablet 13.5 mg PO TID Qty: 60 3RF Hold Instructions: Resume on 02/25/24. Take double your normal dose on Friday; talk to your primary care doctor on Friday to discuss any further medication adjustments and repeat labs Discontinued ondansetron 4 mg tablet,disintegrating 4 mg PO Q6H PRN (Reason: nausea and vomiting) Qty: 20 0RF Discharge Instructions Instructions: Low Magnesium Level (DC), Hypocalcemia (DC) Additional Instructions: Take double your normal dose of your calcium, magnesium, and calcitrol tomorrow Friday02/24/24 Call your primary care doctor tomorrow to discuss how you should take your medication going forward and if any adjustments are required, and to discuss getting repeat bloodwork. Schedule an appointment with your primary care doctor for 02/23 or 02/24. Return to the emergency department for new or worsening symptoms, or if you are having continued symptoms and have not been able to get in to see your primary care doctor by the end of Friday. Referrals: Brendon Vivar DO [Primary Care Provider] - [facility] General Mode of arrival: ambulatory . Date/Time Provider Initiated Documentation: 02/23/24 22:13 . Limitations to Documentation: no limitations . Information obtained by: patient . HPI Narrative: 28yo M with hx HTN, hyperparathyroidism, anxiety/panic/PTSD presenting with palpitations and paresthesias. Today has intermittently felt his heart racing and skipping beats. No chest pain, shortness of breath, or lightheadedness. Also today has had circumoral parenthesis as well as tingling in his hands and feet, states this is typically when his calcium level is off. Also feels generally more tired than usual. No N/V/D. Otherwise in his usual state of health with no fevers, chills, rash, abdominal pain, dysuria, hematuria, cough, rhinorhea, numbness, weakness, or other concerns. Related Data Home Medications ?Medication ?Instructions ?Recorded ?Confirmed calcium carbonate (Tums) 2,000 mg PO BID 02/02/23 02/23/24 methadone 10 mg/5 mL oral solution 105 mg PO QAM 06/12/23 02/23/24 polyethylene glycol 3350 17 17 g PO DAILY PRN 06/12/23 02/23/24 gram/dose oral powder gabapentin 300 mg capsule 300 mg PO BID #180 caps 06/23/23 02/23/24 omeprazole 40 mg capsule,delayed 40 mg PO DAILY #90 caps 07/21/23 02/23/24 release prochlorperazine maleate 5 mg 5 mg PO TID PRN acute nausea #30 09/06/23 02/23/24 tablet tabs magnesium gluconate 27 mg 13.5 mg (1/2 x 27 mg magnesium 11/21/23 02/23/24 magnesium (500 mg) tablet (500 mg)) PO TID #60 tabs cyclobenzaprine 10 mg tablet 10 mg PO TID PRN muscle spasm #30 12/04/23 02/23/24 tabs calcitriol 0.5 mcg capsule 1 mcg PO BID 02/01/24 02/23/24 eletriptan 20 mg tablet See Rx Instructions PO .COMPLEX 02/05/24 02/23/24 #20 tabs clonazepam 1 mg tablet 1 mg PO BID #56 tabs 02/13/24 02/23/24 simethicone 125 mg chewable tablet 125 mg PO QID PRN abdominal 02/13/24 02/23/24 distention #20 tabs Previous Rx's ?Medication ?Instructions ?Recorded gabapentin 300 mg capsule 300 mg PO BID #180 caps 06/23/23 omeprazole 40 mg capsule,delayed 40 mg PO DAILY #90 caps 07/21/23 release prochlorperazine maleate 5 mg 5 mg PO TID PRN acute nausea #30 09/06/23 tablet tabs magnesium gluconate 27 mg 13.5 mg (1/2 x 27 mg magnesium 11/21/23 magnesium (500 mg) tablet (500 mg)) PO TID #60 tabs cyclobenzaprine 10 mg tablet 10 mg PO TID PRN muscle spasm #30 12/04/23 tabs eletriptan 20 mg tablet See Rx Instructions PO .COMPLEX 02/05/24 #20 tabs clonazepam 1 mg tablet 1 mg PO BID #56 tabs 02/13/24 simethicone 125 mg chewable tablet 125 mg PO QID PRN abdominal 02/13/24 distention #20 tabs Allergies Allergy/AdvReac Type Severity Reaction Status Date / Time codeine Allergy Intermediate pass out Verified 02/23/24 22:06 Penicillins Allergy Skin Rash Verified 02/23/24 22:06 amoxicillin AdvReac Intermediate Nausea Verified 02/23/24 22:06 dextromethorphan (From AdvReac Intermediate Other (See Verified 02/23/24 22:06 NyQuil) Comment) doxylamine (From NyQuil) AdvReac Intermediate Other (See Verified 02/23/24 22:06 Comment) pseudoephedrine (From NyQuil) AdvReac Intermediate Other (See Verified 02/23/24 22:06 Comment) General Stated Complaint: Palpitatns ADRIANA: 3 Exam Narrative Exam Narrative: General: Alert, well appearing, well nourished, in no acute distress. Head: Normocephalic, atraumatic Neck: Trachea midline, ?Neck supple. ENT: ?MMM.? No oropharygeal lesions or exudate. Cardiac: ?RRR, no murmurs appreciated Resp: No respiratory distress. CTAB. Abd: ?Soft, non-distended, nontender : ?No suprapubic tenderness. Extremities: ?No deformities.? No peripheral edema. Neuro: ? GCS 15.? PERRL.? EOMI.? Fluent speech, no dysarthria. Motor- 5/5 strength symmetric bilateral upper and lower extremities Sensation- ?Intact to light touch and symmetric multiple dermatomes including upper and lower extremities Coordination- No dysmetria on finger to nose Gait/station: ?Normal stance.? No truncal ataxia. Steady gait with equal normal steps CRANIAL NERVES: II: Pupils equal and reactive, III, IV, : EOM intact, no gaze preference or deviation, no nystagmus. V: normal sensation in V1, V2, and V3 segments bilaterally VII: no asymmetry, no nasolabial fold flattening VIII: normal hearing to speech IX, X: normal palatal elevation, no uvular deviation XI: 5/5 head turn and 5/5 shoulder shrug bilaterally XII: midline tongue protrusion Course Vital Signs Vital signs: Vital Signs Temperature 36.6 C 02/23/24 21:58 Pulse 121 H 02/23/24 21:58 Respiratory Rate 16 02/23/24 21:58 Blood Pressure 128/86 02/23/24 21:58 Pulse Oximetry 100 02/23/24 21:58 Temperature 36.9 C 02/23/24 22:05 Temperature Source Temporal Artery Scan 02/23/24 22:05 Pulse 124 H 02/23/24 22:05 Respiratory Rate 17 02/23/24 22:05 Respiratory Effort Normal 02/23/24 22:01 Blood Pressure 128/86 02/23/24 22:05 Blood Pressure Position Sitting 02/23/24 21:58 Pulse Oximetry 98 02/23/24 22:05 Oxygen Delivery Method Room Air 02/23/24 22:05 Oxygen Flow Rate 0 02/23/24 22:05 Pain Level 4 02/23/24 22:05 Comment pain location- hands, feet, chest, lips. 02/23/24 22:05 Medical Decision Making 28yo M with hx HTN, hyperparathyroidism, anxiety/panic/PTSD presenting with palpitations and paresthesias. Today has intermittently felt his heart racing and skipping beats and has had circumoral parenthesis as well as tingling in his hands and feet, states this is typically when his calcium level is off. No N/V/D. Otherwise in his usual state of health. Tachycardiac on arrival to 120's, vital signs otherwise reassuring. EKG on arrival sinus tachycardia, appropriate intervals, no ST segment or T wave abnormalities to suggest occlusive AR. Last metabolic panel drawn on 02/13; will repeat today. Hx not concerning for acute cornary syndrome, pulmonary embolism, sepsis; would not work these up further. -Labs reviewed as below, CBC reassuring with mild anemia (at baseline on [facility] record review), CMP with moderate hypocalcemia at 7.9, Mg borderline low at 1.7. Repeat vital signs with HR in 90's without intervention. With mild symptoms, appropriate for PO repletion. Will double up on home dose calcitrol, calcium carbonate, and magnesium tonight and advised him to take double his usual doses tomorrow as well; he was instructed to call his PCP tomorrow and schedule an appointment for either tomorrow or the day after to discuss further managemen t/adjustments and timing of repeat bloodwork. Discharged home; discharge instructions and return precautions were reviewed with patient who verbalized understanding. All questions were answered and he is in full agreement with the plan. Medical Records Medical records reviewed: Yes I reviewed the patient's medical records. Medical records narrative: ED visit notes 02/20/24, 02/17/24, 02/14/24 Quality:SDOH Health Related Social Needs: Health related social needs transpo insecurity PFSH All Active Problems (Updated 02/23/24 @ 23:07 by Kimberli Martinez MD) Hypomagnesemia (Acute) Hypocalcemia (Acute) Headache (Acute) History of anxiety (Acute) Left groin pain (Acute) Paresthesias (Acute) Obesity (Chronic) Migraine with aura (Acute) Urinary tract infection (Acute) Cervical radiculopathy (Acute) Anxiety (Chronic) Hypomagnesemia (Acute) Insect bite of leg, right (Acute) Testicle lump (Acute) Hamstring tendinitis of left thigh (Acute) Pes anserine bursitis (Acute) Hypernatremia (Acute) Cervical radiculopathy (Acute) Left-sided Flower's palsy (Acute) Constipation (Acute) Grief reaction (Chronic) Opiate dependence, continuous (Acute) 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 Possible 2' Methadone, Clnzpm (?). Surg eval (+)/No further action. History of electrolyte imbalance (Acute) Neck pain on left side (Acute) with shoulder, upper back pain.. torticollis, radiating into left hip/leg Pulmonary nodule 1 cm or greater in diameter (Chronic) Therapeutic opioid induced constipation (Acute) Sphincter of Oddi dysfunction (Chronic) Abnormal CT scan, kidney (Acute) Intrahepatic bile duct dilation (Acute) Common bile duct dilatation (Chronic) Has been dilated for quite some time, now more-so. Normal LFTs. Known gallstones. Iatrogenic hypocalcemia (Acute) Multiple endocrine neoplasia type I (Chronic) Depression (Chronic) Hypocalcemia (Chronic) Elevated parathyroid hormone (Acute) Family history of coronary arteriosclerosis (Chronic) Father of AR at 50, mother had AR at 42 Severe anxiety with panic (Chronic) Medical History CKD (chronic kidney disease) stage 2, GFR 60-89 ml/min GFR 64-65, with Hx FLORESITA and GFR < 45 Primary hyperparathyroidism Complex medical condition Serious electrolyte imbalances, with gynecomastia, possible MEN Dx, CKD and anemia with baseline anxiety and Hx PTSD. Hypocalcemia Anxiety Depression Hyperlipidemia Family history of multiple endocrine neoplasia, type 1 PTSD (post-traumatic stress disorder) Per pt. states no triggers at this time. Surgical History History of laparoscopic cholecystectomy (~11/2023) H/O parathyroidectomy Family History Mother Anxiety Asthma Depression Sister Anxiety Depression Father Cancer lung & stomach Depression Diabetes Hypertension MEN 1 (multiple endocrine neoplasia) Social History Smoking/Tobacco Use Status: Never Smoking risk assessment performed?: Yes Alcohol Intake: never Drug use: Current Sobriety Substance use type: former substance user Adopted: No Caregiver/Support person: No Foster care: No Household members: none Housing: apartment Number of Children: 0 Communication Needs: None Education Level: high school Do you need help understanding health information?: Never current occupation: [employer] Pets and animals: Yes (Ally) Pets and animals: dog(s) Sexually active: No Do you think of yourself as: straight/heterosexual Current gender identity: male What is your relationship status?: How often do you talk on the phone with friends or family?: twice per week How often do you get together with friends or relatives?: never Do you belong to any clubs or organized social groups?: no Panel score (0-1 are the most socially isolated patients): 0 What type of physical activity do you participate in: walking Duration: 15-30 minutes/day Frequency: 5-6 times per week Maryam/Scientology: [employer] Special maryam needs: No Seatbelt use: always Helmet use: Yes Helmet use: always Drive intox or ride w/intox new car 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
[2024-02-23 22:33] LABS: Abs Immature Grans 0.03 10^3/uL (0.0-0.06); Absolute Basophil Count 0.04 10^3/uL (0.0-0.2); Absolute Eosinophil Count 0.27 10^3/uL (0.0-0.7); Absolute Lymphocyte Count 2.31 10^3/uL (1.2-3.4); Absolute Monocyte Count 1.01 10^3/uL (0.1-0.8); Absolute Neutrophil Count 5.83 10^3/uL (1.2-6.7); Basophils % 0.4 %; Eosinophils % 2.8 %; HCT 35.4 % (40.0-50.0); HGB 11.5 g/dL (13.5-17.5); Immature Grans % 0.3 %; Lymphocytes % 24.3 %; MCH 27.9 pg (27.0-33.0); MCHC 32.5 % (32.0-36.0); MCV 86 fL (80-95); MPV 9.7 fL (8.0-11.0); Monocytes % 10.6 %; Neutrophils % 61.6 %; Platelet Count 307 10^3/uL (130-400); RBC 4.12 10^6/uL (4.36-5.78); RDW 15.2 % (11.8-14.1); RDW-SD 47.6 fL; WBC 9.49 10^3/uL (4.4-10.8)
[2024-02-23 22:48] LABS: ALT 26 U/L (16-63); AST 19 U/L (15-37); Albumin 2.8 g/dL (3.4-5.0); Alkaline Phosphatase 213 U/L (46-116); Anion Gap 4.3 mmol/L (3-11); BUN 11 mg/dL (7-18); Bilirubin, Total 0.16 mg/dL (0.2-1.0); CO2 31.7 mmol/L (21.0-32.0); CREATININE 1.2 mg/dL (0.70-1.30); Calcium 7.9 mg/dL (8.5-10.1); Chloride 100 mmol/L (98-107); Estimated GFR 83.43 (mL/min/1.73m2); Glucose 105 mg/dL (74-106); Magnesium 1.7 mg/dL (1.8-2.4); Potassium 3.5 mmol/L (3.5-5.1); Sodium 136 mmol/L (136-145); Total Protein 7.4 g/dL (6.4-8.2)
[2024-02-23] MEDS: Calcium Carbonate *TUMS* 500 MG CHEW 4000 MG PO (23:30)
[2024-02-23] MEDS: Magnesium Gluconate 500 MG TAB 1000 MG PO (23:30)
[2024-02-23] MEDS: Calcitriol 0.25 MCG CAP 1 MCG PO (23:30)
== END 2024-02-23 23:27 | disposition home or self-care (01) ==
PROVIDERS: Emergency Provider Student in an Organized Health Care Education/Training Program; PCP Family Medicine
DX: R00.2 Palpitations (principal); E83.42 Hypomagnesemia; E83.51 Hypocalcemia
CPT/HCPCS: 36415; 80053; 93005; 99283; 83735; 85025; 93010

== ENCOUNTER 2024-02-25 11:44 | Emergency (ER) | payer OTHER, SELFPAY ==
[2024-02-25 11:45] VITALS: BP 119/83; PULSE 134; RESP 12; TEMP 37.1; O2SAT 95
--- NOTE | 2024-02-25 11:45 | DI.US_ITS ---
Exam(s) US LOWER EXTREMITY VENOUS RT EXAM: US LOWER EXTREMITY VENOUS RT CLINICAL HISTORY: right calf pain. TECHNIQUE: Lower extremity venous ultrasound performed using grayscale, color-flow, and spectral Do ppler analysis. COMPARISON: No exams were available for comparison FINDINGS: The common femoral, femoral and popliteal veins demonstrate normal compressibility, augmentation, and color Doppler. The posterior tibial veins are patent. No saphenous vein thrombosis or other superfi cial venous thrombosis is seen. No hematoma or Almanza's cyst is seen. IMPRESSION: Negative lower extremity ultrasound. No evidence of DVT. DATA REPOSITORY:
--- NOTE | 2024-02-25 11:58 | ED.GENADUL_ITS ---
Discharge Plan Disposition Patient Disposition: Home Condition: Stable Discharge Details Clinical Impression: Pain of right calf Primary Care Provider: Brendon Vivar ED Provider: Ricardo Crabtree Home Meds and New Rx's Prescriptions: Continued gabapentin 300 mg capsule 300 mg PO BID Qty: 180 3RF cyclobenzaprine 10 mg tablet 10 mg PO TID PRN (Reason: muscle spasm) Qty: 30 3RF simethicone 125 mg tablet,chewable 125 mg PO QID PRN (Reason: abdominal distention) Qty: 20 3RF clonazepam 1 mg tablet 1 mg PO BID Qty: 56 0RF methadone 10 mg/5 mL solution 105 mg PO QAM polyethylene glycol 3350 17 gram/dose powder 17 g PO DAILY PRN omeprazole 40 mg capsule,delayed release(DR/EC) 40 mg PO DAILY Qty: 90 3RF calcium carbonate [Tums] 200 mg calcium (500 mg) tablet,chewable 2,000 mg PO BID prochlorperazine maleate 5 mg tablet 5 mg PO TID PRN (Reason: acute nausea) Qty: 30 0RF calcitriol 0.5 mcg capsule 1 mcg PO BID magnesium gluconate 27 mg magnesium (500 mg) tablet 13.5 mg PO TID Qty: 60 3RF ondansetron 4 mg tablet,disintegrating 4 mg PO Q8H PRN Patient Comments: DISSOLVE ONE TABLET ON THE TONGUE EVERY 6 HOURS NEEDED FOR NAUSEA AND VOMITING prednisone 20 mg tablet Patient Comments: TAKE ONE TABLET BY MOUTH EVERY DAY FOR 5 DAYS benzonatate 100 mg capsule PO Patient Comments: TAKE ONE CAPSULE BY MOUTH EVERY 8 HOURS NEEDED FOR COUGH mupirocin 2 % ointment TOPICAL Patient Comments: APPLY TOPICALLY TO AFFECTED AREA THREE TIMES A DAY Discharge Instructions Additional Instructions: Ultrasound did not show any concerning findings. If symptoms continue in a week follow-up with your primary care provider If you feel more ill or feel like you are suffering from an emergent medical process return to the emergency department for reevaluation HPI General Mode of arrival: ambulatory . Date/Time Provider Initiated Documentation: 02/25/24 11:47 . Limitations to Documentation: no limitations . Information obtained by: patient . History of Present Illness 28 year old M presents to the emergency department with the chief complaint of right calf pain, described as moderate, Quality is described as aching, and is localized to the right and lower extremity. Patient reports no radiation. and it has been constant. No relieving factors improve symptom(s), No exacerbating factors reported . Patient notes denies chest pain, fever/chills and shortness of breath. Patient did receive the following treatments prior to arrival, none Related Data Home Medications ?Medication ?Instructions ?Recorded ?Confirmed calcium carbonate (Tums) 2,000 mg PO BID 02/02/23 02/25/24 methadone 10 mg/5 mL oral solution 105 mg PO QAM 06/12/23 02/25/24 polyethylene glycol 3350 17 17 g PO DAILY PRN 06/12/23 02/25/24 gram/dose oral powder gabapentin 300 mg capsule 300 mg PO BID #180 caps 06/23/23 02/25/24 omeprazole 40 mg capsule,delayed 40 mg PO DAILY #90 caps 07/21/23 02/25/24 release prochlorperazine maleate 5 mg 5 mg PO TID PRN acute nausea #30 09/06/23 02/25/24 tablet tabs magnesium gluconate 27 mg 13.5 mg (1/2 x 27 mg magnesium 11/21/23 02/25/24 magnesium (500 mg) tablet (500 mg)) PO TID #60 tabs cyclobenzaprine 10 mg tablet 10 mg PO TID PRN muscle spasm #30 12/04/23 02/25/24 tabs calcitriol 0.5 mcg capsule 1 mcg PO BID 02/01/24 02/25/24 clonazepam 1 mg tablet 1 mg PO BID #56 tabs 02/13/24 02/25/24 simethicone 125 mg chewable tablet 125 mg PO QID PRN abdominal 02/13/24 02/25/24 distention #20 tabs benzonatate 100 mg capsule mg PO 02/25/24 mupirocin 2 % topical ointment applic topical 02/25/24 ondansetron 4 mg disintegrating 4 mg PO Q8H PRN 02/25/24 02/25/24 tablet prednisone 20 mg tablet mg 02/25/24 Previous Rx's ?Medication ?Instructions ?Recorded gabapentin 300 mg capsule 300 mg PO BID #180 caps 06/23/23 omeprazole 40 mg capsule,delayed 40 mg PO DAILY #90 caps 07/21/23 release prochlorperazine maleate 5 mg 5 mg PO TID PRN acute nausea #30 09/06/23 tablet tabs magnesium gluconate 27 mg 13.5 mg (1/2 x 27 mg magnesium 11/21/23 magnesium (500 mg) tablet (500 mg)) PO TID #60 tabs cyclobenzaprine 10 mg tablet 10 mg PO TID PRN muscle spasm #30 12/04/23 tabs clonazepam 1 mg tablet 1 mg PO BID #56 tabs 02/13/24 simethicone 125 mg chewable tablet 125 mg PO QID PRN abdominal 02/13/24 distention #20 tabs Allergies Allergy/AdvReac Type Severity Reaction Status Date / Time codeine Allergy Intermediate pass out Verified 02/25/24 11:49 Penicillins Allergy Skin Rash Verified 02/25/24 11:49 amoxicillin AdvReac Intermediate Nausea Verified 02/25/24 11:49 dextromethorphan (From AdvReac Intermediate Other (See Verified 02/25/24 11:49 NyQuil) Comment) doxylamine (From NyQuil) AdvReac Intermediate Other (See Verified 02/25/24 11:49 Comment) pseudoephedrine (From NyQuil) AdvReac Intermediate Other (See Verified 02/25/24 11:49 Comment) General Stated Complaint: Vascular ADRIANA: 3 Review of Systems All systems reviewed & are unremarkable except as noted in HPI and below Constitutional Constitutional: Denies chills, Denies fever(s) and Denies weakness Cardiovascular Cardiovascular: Denies chest pain and Denies dyspnea Respiratory Respiratory: Denies cough and Denies dyspnea Gastrointestinal Gastrointestinal: Denies abdominal pain, Denies nausea and Denies vomiting Musculoskeletal Musculoskeletal: Denies joint swelling Neurologic Neurologic: Denies weakness Exam Const General: no acute distress Orientation: alert [facility] Head: normal to inspection Ears: external ears normal General nose exam: external nose normal Mouth: moist mucous membranes Eyes General: appearance normal, both eyes and all related structures Neck Neck: normal visual inspection Resp Effort & Inspection: normal respiratory effort and able to speak in complete sentences Cardio Rate: regular rate Skin General skin exam: no rashes or lesions noted Neuro General: patient alert and patient oriented x3 Extrem General: full ROM and capillary refill normal Psych Mental Status: mental status grossly normal Course Vital Signs Vital signs: Vital Signs Temperature 37.1 C 02/25/24 11:45 Pulse 134 H 02/25/24 11:45 Respiratory Rate 12 02/25/24 11:45 Blood Pressure 119/83 02/25/24 11:45 Pulse Oximetry 95 02/25/24 11:45 Temperature 37.1 C 02/25/24 11:45 Pulse 134 H 02/25/24 11:45 Respiratory Rate 12 02/25/24 11:45 Respiratory Effort Normal 02/25/24 11:53 Blood Pressure 119/83 02/25/24 11:45 Pulse Oximetry 95 02/25/24 11:45 Oxygen Delivery Method Room Air 02/25/24 11:45 Oxygen Flow Rate 0 02/25/24 11:45 Pain Level 2 02/25/24 11:45 Comment 09/23 when walking 02/25/24 11:45 Medical Decision Making 1-year-old male with a history of multiple endocrine neoplasia type I, states he had a blood clot years ago and is no longer on anticoagulation comes in with right calf pain and states he felt a lump in the calf yesterday. He denies any falls or trauma. He appears well on exam, his right leg is not swollen he has tenderness in the right mid calf I do not feel any palpable deformities or lumps that he describes. He has intact sensation and pulses in the foot. Given the location of the pain will obtain ultrasound to evaluate for possible DVT. He is stable, discussed results with him and advised to follow-up with his PCP and return precautions given Differential Diagnosis Differential Diagnosis: dvt, strain Quality:SDOH Health Related Social Needs: Health related social needs transpo insecurity PFSH All Active Problems (Updated 02/25/24 @ 12:44 by Ricardo Crabtree MD) Pain of right calf (Acute) Hypomagnesemia (Acute) Hypocalcemia (Acute) Headache (Acute) History of anxiety (Acute) Left groin pain (Acute) Paresthesias (Acute) Obesity (Chronic) Migraine with aura (Acute) Urinary tract infection (Acute) Cervical radiculopathy (Acute) Anxiety (Chronic) Hypomagnesemia (Acute) Insect bite of leg, right (Acute) Testicle lump (Acute) Hamstring tendinitis of left thigh (Acute) Pes anserine bursitis (Acute) Hypernatremia (Acute) Cervical radiculopathy (Acute) Left-sided Flower's palsy (Acute) Constipation (Acute) Grief reaction (Chronic) Opiate dependence, continuous (Acute) 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 Possible 2' Methadone, Clnzpm (?). Surg eval (+)/No further action. History of electrolyte imbalance (Acute) Neck pain on left side (Acute) with shoulder, upper back pain.. torticollis, radiating into left hip/leg Pulmonary nodule 1 cm or greater in diameter (Chronic) Therapeutic opioid induced constipation (Acute) Sphincter of Oddi dysfunction (Chronic) Abnormal CT scan, kidney (Acute) Intrahepatic bile duct dilation (Acute) Common bile duct dilatation (Chronic) Has been dilated for quite some time, now more-so. Normal LFTs. Known gallstones. Iatrogenic hypocalcemia (Acute) Multiple endocrine neoplasia type I (Chronic) Depression (Chronic) Hypocalcemia (Chronic) Elevated parathyroid hormone (Acute) Family history of coronary arteriosclerosis (Chronic) Father of [place] at 50, mother had [place] at 42 Severe anxiety with panic (Chronic) Medical History CKD (chronic kidney disease) stage 2, GFR 60-89 ml/min GFR 64-65, with Hx FLORESITA and GFR < 45 Primary hyperparathyroidism Complex medical condition Serious electrolyte imbalances, with gynecomastia, possible MEN Dx, CKD and anemia with baseline anxiety and Hx PTSD. Hypocalcemia Anxiety Depression Hyperlipidemia Family history of multiple endocrine neoplasia, type 1 PTSD (post-traumatic stress disorder) Per pt. states no triggers at this time. Surgical History History of laparoscopic cholecystectomy (~11/2023) H/O parathyroidectomy Family History Mother Anxiety Asthma Depression Sister Anxiety Depression Father Cancer lung & stomach Depression Diabetes Hypertension MEN 1 (multiple endocrine neoplasia) Social History Smoking/Tobacco Use Status: Never Smoking risk assessment performed?: Yes Alcohol Intake: never Drug use: Current Sobriety Substance use type: former substance user Adopted: No Caregiver/Support person: No Foster care: No Household members: none Housing: apartment Number of Children: 0 Communication Needs: None Education Level: high school Do you need help understanding health information?: Never 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[employer] Pets and animals: Yes (Ally) Pets and animals: dog(s) Sexually active: No Do you think of yourself as: straight/heterosexual Current gender identity: male What is your relationship status?: How often do you talk on the phone with friends or family?: twice per week How often do you get together with friends or relatives?: never Do you belong to any clubs or organized social groups?: no Panel score (0-1 are the most socially isolated patients): 0 What type of physical activity do you participate in: walking Duration: 15-30 minutes/day Frequency: 5-6 times per week Maryam/Mu-Ism: Spiritism Special maryam needs: No Seatbelt use: always Helmet use: Yes Helmet use: always Drive intox or ride w/intox substitute bus 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
[2024-02-25 11:59] VITALS: RESP 16
[2024-02-25 13:09] VITALS: BP 115/62; PULSE 108; RESP 16; O2SAT 94
== END 2024-02-25 13:13 | disposition home or self-care (01) ==
PROVIDERS: Emergency Provider Emergency Medicine; PCP Family Medicine
DX: R22.41 Localized swelling, mass and lump, right lower limb (principal); E89.2 Postprocedural hypoparathyroidism; E78.5 Hyperlipidemia, unspecified; Z86.718 Personal history of other venous thrombosis and embolism
CPT/HCPCS: 99284; 93971; 99283

== ENCOUNTER 2024-02-25 21:05 | Emergency (ER) | payer OTHER, SELFPAY ==
[2024-02-25 21:16] VITALS: BP 138/99; PULSE 121; RESP 24; TEMP 37; O2SAT 94
[2024-02-25 21:19] VITALS: RESP 24
--- NOTE | 2024-02-25 21:26 | ED.GENADUL_ITS ---
Discharge Plan Disposition Patient Disposition: Home Condition: Stable Discharge Details Clinical Impression: Anxiety Primary Care Provider: Brendon Vivar ED Provider: Antoinette Templeton Home Meds and New Rx's Prescriptions: Continued gabapentin 300 mg capsule 300 mg PO BID Qty: 180 3RF cyclobenzaprine 10 mg tablet 10 mg PO TID PRN (Reason: muscle spasm) Qty: 30 3RF simethicone 125 mg tablet,chewable 125 mg PO QID PRN (Reason: abdominal distention) Qty: 20 3RF clonazepam 1 mg tablet 1 mg PO BID Qty: 56 0RF methadone 10 mg/5 mL solution 105 mg PO QAM polyethylene glycol 3350 17 gram/dose powder 17 g PO DAILY PRN omeprazole 40 mg capsule,delayed release(DR/EC) 40 mg PO DAILY Qty: 90 3RF calcium carbonate [Tums] 200 mg calcium (500 mg) tablet,chewable 2,000 mg PO BID prochlorperazine maleate 5 mg tablet 5 mg PO TID PRN (Reason: acute nausea) Qty: 30 0RF calcitriol 0.5 mcg capsule 1 mcg PO BID magnesium gluconate 27 mg magnesium (500 mg) tablet 13.5 mg PO TID Qty: 60 3RF ondansetron 4 mg tablet,disintegrating 4 mg PO Q8H PRN Patient Comments: DISSOLVE ONE TABLET ON THE TONGUE EVERY 6 HOURS NEEDED FOR NAUSEA AND VOMITING prednisone 20 mg tablet Patient Comments: TAKE ONE TABLET BY MOUTH EVERY DAY FOR 5 DAYS benzonatate 100 mg capsule PO Patient Comments: TAKE ONE CAPSULE BY MOUTH EVERY 8 HOURS NEEDED FOR COUGH mupirocin 2 % ointment TOPICAL Patient Comments: APPLY TOPICALLY TO AFFECTED AREA THREE TIMES A DAY Discharge Instructions Instructions: Cognitive-Behavioral Therapy, Anxiety, Adult ED Additional Instructions: Please call any [facility] if any thoughts of suicide or homicide, or if you just want to talk to somebody. Follow up with primary care provider in 3-5 days. Return to ED sooner if any worsening or concerns. Referrals: [facility] [Provider Group] - 1 day (Call if needed) Brendon Vivar DO [Primary Care Provider] - 3 days HPI General Mode of arrival: ambulatory . Date/Time Provider Initiated Documentation: 02/25/24 21:06 . Limitations to Documentation: no limitations . Information obtained by: patient, RN notes reviewed and old records reviewed . HPI Narrative: 28-year-old male presents to the ER with a chief complaint of anxiety. He reports that today he has been feeling increased stress. He reports that he is taking care of his disabled uncle who is also dying. He is tearful upon arrival. Denies any suicidal ideation or homicidal ideation. He denies wanting to speak with mental health. He denies any chest pain or muscle spasms. He is requesting just to being out for a bit and is requesting an ice pack. Related Data Home Medications ?Medication ?Instructions ?Recorded ?Confirmed calcium carbonate (Tums) 2,000 mg PO BID 02/02/23 02/25/24 methadone 10 mg/5 mL oral solution 105 mg PO QAM 06/12/23 02/25/24 polyethylene glycol 3350 17 17 g PO DAILY PRN 06/12/23 02/25/24 gram/dose oral powder gabapentin 300 mg capsule 300 mg PO BID #180 caps 06/23/23 02/25/24 omeprazole 40 mg capsule,delayed 40 mg PO DAILY #90 caps 07/21/23 02/25/24 release prochlorperazine maleate 5 mg 5 mg PO TID PRN acute nausea #30 09/06/23 02/25/24 tablet tabs magnesium gluconate 27 mg 13.5 mg (1/2 x 27 mg magnesium 11/21/23 02/25/24 magnesium (500 mg) tablet (500 mg)) PO TID #60 tabs cyclobenzaprine 10 mg tablet 10 mg PO TID PRN muscle spasm #30 12/04/23 02/25/24 tabs calcitriol 0.5 mcg capsule 1 mcg PO BID 02/01/24 02/25/24 clonazepam 1 mg tablet 1 mg PO BID #56 tabs 02/13/24 02/25/24 simethicone 125 mg chewable tablet 125 mg PO QID PRN abdominal 02/13/24 02/25/24 distention #20 tabs benzonatate 100 mg capsule mg PO 02/25/24 mupirocin 2 % topical ointment applic topical 02/25/24 ondansetron 4 mg disintegrating 4 mg PO Q8H PRN 02/25/24 02/25/24 tablet prednisone 20 mg tablet mg 02/25/24 Previous Rx's ?Medication ?Instructions ?Recorded gabapentin 300 mg capsule 300 mg PO BID #180 caps 06/23/23 omeprazole 40 mg capsule,delayed 40 mg PO DAILY #90 caps 07/21/23 release prochlorperazine maleate 5 mg 5 mg PO TID PRN acute nausea #30 09/06/23 tablet tabs magnesium gluconate 27 mg 13.5 mg (1/2 x 27 mg magnesium 11/21/23 magnesium (500 mg) tablet (500 mg)) PO TID #60 tabs cyclobenzaprine 10 mg tablet 10 mg PO TID PRN muscle spasm #30 12/04/23 tabs clonazepam 1 mg tablet 1 mg PO BID #56 tabs 02/13/24 simethicone 125 mg chewable tablet 125 mg PO QID PRN abdominal 02/13/24 distention #20 tabs Allergies Allergy/AdvReac Type Severity Reaction Status Date / Time codeine Allergy Intermediate pass out Verified 02/25/24 21:19 Penicillins Allergy Skin Rash Verified 02/25/24 21:19 amoxicillin AdvReac Intermediate Nausea Verified 02/25/24 21:19 dextromethorphan (From AdvReac Intermediate Other (See Verified 02/25/24 21:19 NyQuil) Comment) doxylamine (From NyQuil) AdvReac Intermediate Other (See Verified 02/25/24 21:19 Comment) pseudoephedrine (From NyQuil) AdvReac Intermediate Other (See Verified 02/25/24 21:19 Comment) General Stated Complaint: Anxiety ADRIANA: 4 Review of Systems All systems reviewed & are unremarkable except as noted in HPI and below Psychiatric Psychiatric: Reports as per HPI and Reports anxiety Exam Psych Mood: anxious mood Affect: sad Attitude: cooperative Thought Process: normal Thought Content: normal Course Vital Signs Vital signs: Vital Signs Temperature 37.0 C 02/25/24 21:16 Pulse 121 H 02/25/24 21:16 Respiratory Rate 24 02/25/24 21:16 Blood Pressure 138/99 H 02/25/24 21:16 Pulse Oximetry 94 02/25/24 21:16 Temperature 37.0 C 02/25/24 21:16 Temperature Source Oral 02/25/24 21:16 Pulse 121 H 02/25/24 21:16 Respiratory Rate 24 02/25/24 21:19 Respiratory Effort Normal, Non-Labored 02/25/24 21:19 Respiratory Depth Normal 02/25/24 21:19 Respiratory Pattern Normal 02/25/24 21:19 Blood Pressure 138/99 H 02/25/24 21:16 Blood Pressure Position Sitting 02/25/24 21:16 Pulse Oximetry 94 02/25/24 21:16 Oxygen Delivery Method Room Air 02/25/24 21:16 Oxygen Flow Rate 0 02/25/24 21:16 Pain Level 0 02/25/24 21:16 Medical Decision Making 28-year-old male presents to the ER with a chief complaint of anxiety. He reports that today he has been feeling increased stress. He reports that he is taking care of his disabled uncle who is also dying. He is tearful upon a rrival. Denies any suicidal ideation or homicidal ideation. He denies wanting to speak with mental health. He denies any chest pain or muscle spasms. He is requesting just to being out for a bit and is requesting an ice pack. Patient given ice pack, offered anxiolytics, patient declined. Patient feels able to be discharged at this time. Patient was observed here in our department for over an hour, anxiety has improved. Patient continues to deny any SI HI. Given an EKG chest phone number instructed to call for anxiety. This text was generated using [employer] dictation system, please disregard any oddities of phrase or misspellings. Quality:SDOH Health Related Social Needs: Health related social needs transpo insecurity PFSH All Active Problems (Updated 02/25/24 @ 22:19 by Antoinette Templeton NP) Anxiety (Chronic) Pain of right calf (Acute) Hypomagnesemia (Acute) Hypocalcemia (Acute) Headache (Acute) History of anxiety (Acute) Left groin pain (Acute) Paresthesias (Acute) Obesity (Chronic) Migraine with aura (Acute) Urinary tract infection (Acute) Cervical radiculopathy (Acute) Anxiety (Chronic) Hypomagnesemia (Acute) Insect bite of leg, right (Acute) Testicle lump (Acute) Hamstring tendinitis of left thigh (Acute) Pes anserine bursitis (Acute) Hypernatremia (Acute) Cervical radiculopathy (Acute) Left-sided Flower's palsy (Acute) Constipation (Acute) Grief reaction (Chronic) Opiate dependence, continuous (Acute) 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 Possible 2' Methadone, Clnzpm (?). Surg eval (+)/No further action. History of electrolyte imbalance (Acute) Neck pain on left side (Acute) with shoulder, upper back pain.. torticollis, radiating into left hip/leg Pulmonary nodule 1 cm or greater in diameter (Chronic) Therapeutic opioid induced constipation (Acute) Sphincter of Oddi dysfunction (Chronic) Abnormal CT scan, kidney (Acute) Intrahepatic bile duct dilation (Acute) Common bile duct dilatation (Chronic) Has been dilated for quite some time, now more-so. Normal LFTs. Known gallstones. Iatrogenic hypocalcemia (Acute) Multiple endocrine neoplasia type I (Chronic) Depression (Chronic) Hypocalcemia (Chronic) Elevated parathyroid hormone (Acute) Family history of coronary arteriosclerosis (Chronic) Father of [place] at 50, mother had [place] at 42 Severe anxiety with panic (Chronic) Medical History CKD (chronic kidney disease) stage 2, GFR 60-89 ml/min GFR 64-65, with Hx FLORESITA and GFR < 45 Primary hyperparathyroidism Complex medical condition Serious electrolyte imbalances, with gynecomastia, possible MEN Dx, CKD and anemia with baseline anxiety and Hx PTSD. Hypocalcemia Anxiety Depression Hyperlipidemia Family history of multiple endocrine neoplasia, type 1 PTSD (post-traumatic stress disorder) Per pt. states no triggers at this time. Surgical History History of laparoscopic cholecystectomy (~11/2023) H/O parathyroidectomy Family History Mother Anxiety Asthma Depression Sister Anxiety Depression Father Cancer lung & stomach Depression Diabetes Hypertension MEN 1 (multiple endocrine neoplasia) Social History Smoking/Tobacco Use Status: Never Smoking risk assessment performed?: Yes Alcohol Intake: never Drug use: Current Sobriety Substance use type: former substance user Adopted: No Caregiver/Support person: No Foster care: No Household members: none Housing: apartment Number of Children: 0 Communication Needs: None Education Level: high school Do you need help understanding health information?: Never 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 [employer] Pets and animals: Yes (Ally) Pets and animals: dog(s) Sexually active: No Do you think of yourself as: straight/heterosexual Current gender identity: male What is your relationship status?: How often do you talk on the phone with friends or family?: twice per week How often do you get together with friends or relatives?: never Do you belong to any clubs or organized social groups?: no Panel score (0-1 are the most socially isolated patients): 0 What type of physical activity do you participate in: walking Duration: 15-30 minutes/day Frequency: 5-6 times per week Maryam/Mormonism: Alevism Special maryam needs: No Seatbelt use: always Helmet use: Yes Helmet use: always Drive intox or ride w/intox interstate bus 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
[2024-02-25 22:34] VITALS: BP 116/81; PULSE 96; RESP 18; O2SAT 94
== END 2024-02-25 22:36 | disposition home or self-care (01) ==
PROVIDERS: Emergency Provider Registered Nurse Emergency; PCP Family Medicine
DX: F41.9 Anxiety disorder, unspecified (principal); N18.2 Chronic kidney disease, stage 2 (mild); E89.2 Postprocedural hypoparathyroidism
CPT/HCPCS: 99283

== ENCOUNTER 2024-03-03 11:06 | Emergency (ER) | payer OTHER, SELFPAY ==
[2024-03-03] VITALS (18 sets, daily range): BP systolic 123; BP diastolic 77; PULSE 80–121; RESP 16–20; TEMP 36.6; O2SAT 98
--- NOTE | 2024-03-03 11:15 | RT.EKG_ITS ---
APPROVED REPORT Exam: Resting ECG Reason for Exam: palpitations Patient Location: E HR:102 bpm ECG Measurements Heart Rate 102 AXIS LA 168 P 41 QRSd 97 QRS 36 QT 350 T 33 QTc 456 Conclusion Sinus tachycardia...rate> 99
--- NOTE | 2024-03-03 11:37 | ED.GENADUL_ITS ---
Discharge Plan Disposition Patient Disposition: Home Condition: Stable Discharge Details Clinical Impression: Muscle spasm Primary Care Provider: Brendon Vivar ED Provider: Ricardo Crabtree Home Meds and New Rx's Prescriptions: Continued gabapentin 300 mg capsule 300 mg PO BID Qty: 180 3RF cyclobenzaprine 10 mg tablet 10 mg PO TID PRN (Reason: muscle spasm) Qty: 30 3RF simethicone 125 mg tablet,chewable 125 mg PO QID PRN (Reason: abdominal distention) Qty: 20 3RF clonazepam 1 mg tablet 1 mg PO BID Qty: 56 0RF methadone 10 mg/5 mL solution 105 mg PO QAM polyethylene glycol 3350 17 gram/dose powder 17 g PO DAILY PRN omeprazole 40 mg capsule,delayed release(DR/EC) 40 mg PO DAILY Qty: 90 3RF calcium carbonate [Tums] 200 mg calcium (500 mg) tablet,chewable 2,000 mg PO BID prochlorperazine maleate 5 mg tablet 5 mg PO TID PRN (Reason: acute nausea) Qty: 30 0RF calcitriol 0.5 mcg capsule 1 mcg PO BID magnesium gluconate 27 mg magnesium (500 mg) tablet 13.5 mg PO TID Qty: 60 3RF ondansetron 4 mg tablet,disintegrating 4 mg PO Q8H PRN Patient Comments: DISSOLVE ONE TABLET ON THE TONGUE EVERY 6 HOURS NEEDED FOR NAUSEA AND VOMITING benzonatate 100 mg capsule 100 mg PO TID PRN Patient Comments: TAKE ONE CAPSULE BY MOUTH EVERY 8 HOURS NEEDED FOR COUGH mupirocin 2 % ointment 1 applic TOPICAL TID Patient Comments: APPLY TOPICALLY TO AFFECTED AREA THREE TIMES A DAY HPI General Mode of arrival: ambulatory . Date/Time Provider Initiated Documentation: 03/03/24 11:24 . Limitations to Documentation: no limitations . Information obtained by: patient . History of Present Illness 28 year old M presents to the emergency department with the chief complaint of muscle spasms, described as moderate, Patient started experiencing this day(s) (1) and it has been intermittent. No relieving factors improve symptom(s), No exacerbating factors reported . Patient notes denies chest pain, fever/chills and shortness of breath. Patient did receive the following treatments prior to arrival, none Related Data Home Medications ?Medication ?Instructions ?Recorded ?Confirmed calcium carbonate (Tums) 2,000 mg PO BID 02/02/23 03/03/24 methadone 10 mg/5 mL oral solution 105 mg PO QAM 06/12/23 03/03/24 polyethylene glycol 3350 17 17 g PO DAILY PRN 06/12/23 03/03/24 gram/dose oral powder gabapentin 300 mg capsule 300 mg PO BID #180 caps 06/23/23 03/03/24 omeprazole 40 mg capsule,delayed 40 mg PO DAILY #90 caps 07/21/23 03/03/24 release prochlorperazine maleate 5 mg 5 mg PO TID PRN acute nausea #30 09/06/23 03/03/24 tablet tabs magnesium gluconate 27 mg 13.5 mg (1/2 x 27 mg magnesium 11/21/23 03/03/24 magnesium (500 mg) tablet (500 mg)) PO TID #60 tabs cyclobenzaprine 10 mg tablet 10 mg PO TID PRN muscle spasm #30 12/04/23 03/03/24 tabs calcitriol 0.5 mcg capsule 1 mcg PO BID 02/01/24 03/03/24 clonazepam 1 mg tablet 1 mg PO BID #56 tabs 02/13/24 03/03/24 simethicone 125 mg chewable tablet 125 mg PO QID PRN abdominal 02/13/24 03/03/24 distention #20 tabs benzonatate 100 mg capsule 100 mg PO TID PRN 02/25/24 03/03/24 mupirocin 2 % topical ointment 1 applic topical TID 02/25/24 03/03/24 ondansetron 4 mg disintegrating 4 mg PO Q8H PRN 02/25/24 03/03/24 tablet Previous Rx's ?Medication ?Instructions ?Recorded gabapentin 300 mg capsule 300 mg PO BID #180 caps 06/23/23 omeprazole 40 mg capsule,delayed 40 mg PO DAILY #90 caps 07/21/23 release prochlorperazine maleate 5 mg 5 mg PO TID PRN acute nausea #30 09/06/23 tablet tabs magnesium gluconate 27 mg 13.5 mg (1/2 x 27 mg magnesium 11/21/23 magnesium (500 mg) tablet (500 mg)) PO TID #60 tabs cyclobenzaprine 10 mg tablet 10 mg PO TID PRN muscle spasm #30 12/04/23 tabs clonazepam 1 mg tablet 1 mg PO BID #56 tabs 02/13/24 simethicone 125 mg chewable tablet 125 mg PO QID PRN abdominal 02/13/24 distention #20 tabs Allergies Allergy/AdvReac Type Severity Reaction Status Date / Time codeine Allergy Intermediate pass out Verified 03/03/24 11:19 Penicillins Allergy Skin Rash Verified 03/03/24 11:19 amoxicillin AdvReac Intermediate Nausea Verified 03/03/24 11:19 dextromethorphan (From AdvReac Intermediate Other (See Verified 03/03/24 11:19 NyQuil) Comment) doxylamine (From NyQuil) AdvReac Intermediate Other (See Verified 03/03/24 11:19 Comment) pseudoephedrine (From NyQuil) AdvReac Intermediate Other (See Verified 03/03/24 11:19 Comment) General Stated Complaint: GenMedical ADRIANA: 3 Review of Systems All systems reviewed & are unremarkable except as noted in HPI and below Constitutional Constitutional: Denies chills, Denies fever(s) and Denies weakness Cardiovascular Cardiovascular: Denies chest pain and Denies dyspnea Respiratory Respiratory: Denies cough and Denies dyspnea Gastrointestinal Gastrointestinal: Denies abdominal pain, Denies nausea and Denies vomiting Integumentary/Breasts Skin/Breast: Denies rash Neurologic Neurologic: Denies weakness Exam Const General: no acute distress Orientation: alert HENNJ Head: normal to inspection Ears: external ears normal General nose exam: external nose normal Mouth: moist mucous membranes Eyes General: appearance normal, both eyes and all related structures Neck Neck: normal visual inspection Resp Effort & Inspection: normal respiratory effort and able to speak in complete sentences Cardio Rate: regular rate Skin General skin exam: no rashes or lesions noted Neuro General: patient alert and patient oriented x3 Extrem General: normal to inspection Psych Mental Status: mental status grossly normal Course Vital Signs Vital signs: Vital Signs Temperature 36.6 C 03/03/24 11:16 Pulse 120 H 03/03/24 11:16 Respiratory Rate 20 03/03/24 11:16 Blood Pressure 123/77 03/03/24 11:16 Pulse Oximetry 98 03/03/24 11:16 Temperature 36.6 C 03/03/24 11:16 Temperature Source Skin 03/03/24 11:16 Pulse 120 H 03/03/24 11:16 Respiratory Rate 20 03/03/24 11:16 Blood Pressure 123/77 03/03/24 11:16 Blood Pressure Position Sitting 03/03/24 11:16 Pulse Oximetry 98 03/03/24 11:16 Oxygen Delivery Method Room Air 03/03/24 11:16 Oxygen Flow Rate 0 03/03/24 11:16 Pain Level 4 03/03/24 11:16 Medical Decision Making 1-year-old male who has a history of multiple endocrine neoplasia type I and has frequent episodes of low magnesium and calcium comes in with spasming of his hands and muscles in his legs that usually happens when his electrolytes are off so came in for evaluation. He otherwise feels well, no vomiting, no chest pain, no fevers no chills. No spasms currently on exam and reassuring neurological exam. Given his history we will check CMP and mag level and reassess. Labs unremarkable, patient asymptomatic, he did take extra magnesium and calcium this morning so this may resolve his symptoms admit his electrolytes more or less on significant. He is stable for discharge and will follow-up with his PCP, return precautions given Differential Diagnosis Differential Diagnosis: Electrolyte abnormality, anxiety Medical Records Medical records reviewed: Yes I reviewed the patient's medical records. Lab Data Lab results reviewed: Yes I reviewed the patient's lab results. Quality:SDOH Health Related Social Needs: Health related social needs transpo insecurity PFSH All Active Problems (Updated 03/03/24 @ 14:03 by Ricardo Crabtree MD) Muscle spasm (Acute) Anxiety (Chronic) Pain of right calf (Acute) Hypomagnesemia (Acute) Hypocalcemia (Acute) Headache (Acute) History of anxiety (Acute) Left groin pain (Acute) Paresthesias (Acute) Obesity (Chronic) Migraine with aura (Acute) Urinary tract infection (Acute) Cervical radiculopathy (Acute) Anxiety (Chronic) Hypomagnesemia (Acute) Insect bite of leg, right (Acute) Testicle lump (Acute) Hamstring tendinitis of left thigh (Acute) Pes anserine bursitis (Acute) Hypernatremia (Acute) Cervical radiculopathy (Acute) Left-sided Flower's palsy (Acute) Constipation (Acute) Grief reaction (Chronic) Opiate dependence, continuous (Acute) 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 Possible 2' Methadone, Clnzpm (?). Surg eval (+)/No further action. History of electrolyte imbalance (Acute) Neck pain on left side (Acute) with shoulder, upper back pain.. torticollis, radiating into left hip/leg Pulmonary nodule 1 cm or greater in diameter (Chronic) Therapeutic opioid induced constipation (Acute) Sphincter of Oddi dysfunction (Chronic) Abnormal CT scan, kidney (Acute) Intrahepatic bile duct dilation (Acute) Common bile duct dilatation (Chronic) Has been dilated for quite some time, now more-so. Normal LFTs. Known gallstones. Iatrogenic hypocalcemia (Acute) Multiple endocrine neoplasia type I (Chronic) Depression (Chronic) Hypocalcemia (Chronic) Elevated parathyroid hormone (Acute) Family history of coronary arteriosclerosis (Chronic) Father of NE at 50, mother had NE at 42 Severe anxiety with panic (Chronic) Medical History CKD (chronic kidney disease) stage 2, GFR 60-89 ml/min GFR 64-65, with Hx FLORESITA and GFR < 45 Primary hyperparathyroidism Complex medical condition Serious electrolyte imbalances, with gynecomastia, possible MEN Dx, CKD and anemia with baseline anxiety and Hx PTSD. Hypocalcemia Anxiety Depression Hyperlipidemia Family history of multiple endocrine neoplasia, type 1 PTSD (post-traumatic stress disorder) Per pt. states no triggers at this time. Surgical History History of laparoscopic cholecystectomy (~11/2023) H/O parathyroidectomy Family History Mother Anxiety Asthma Depression Sister Anxiety Depression Father Cancer lung & stomach Depression Diabetes Hypertension MEN 1 (multiple endocrine neoplasia) Social History Smoking/Tobacco Use Status: Never Smoking risk assessment performed?: Yes Alcohol Intake: never Drug use: Current Sobriety Substance use type: former substance user Adopted: No Caregiver/Support person: No Foster care: No Household members: none Housing: apartment Number of Children: 0 Communication Needs: None Education Level: high school Do you need help understanding health information?: Never current occupation: [employer] Pets and animals: Yes (Ally) Pets and animals: dog(s) Sexually active: No Do you think of yourself as: straight/heterosexual Current gender identity: male What is your relationship status?: How often do you talk on the phone with friends or family?: twice per week How often do you get together with friends or relatives?: never Do you belong to any clubs or organized social groups?: no Panel score (0-1 are the most socially isolated patients): 0 What type of physical activity do you participate in: walking Duration: 15-30 minutes/day Frequency: 5-6 times per week Maryam/Temple: Religious Special maryam needs: No Seatbelt use: always Helmet use: Yes Helmet use: always Drive intox or ride w/intox driver starting gate: No Do you feel safe at home: Yes Do you feel safe in your relationship?: Yes
[2024-03-03 13:00] LABS: ALT 27 U/L (16-63); AST 26 U/L (15-37); Albumin 2.7 g/dL (3.4-5.0); Alkaline Phosphatase 202 U/L (46-116); Anion Gap 4.7 mmol/L (3-11); BUN 16 mg/dL (7-18); Bilirubin, Total 0.17 mg/dL (0.2-1.0); CO2 34.3 mmol/L (21.0-32.0); CREATININE 1.5 mg/dL (0.70-1.30); Calcium 8.9 mg/dL (8.5-10.1); Chloride 101 mmol/L (98-107); Estimated GFR 63.83 (mL/min/1.73m2); Glucose 105 mg/dL (74-106); Magnesium 1.8 mg/dL (1.8-2.4); Potassium 3.7 mmol/L (3.5-5.1); Sodium 140 mmol/L (136-145); Total Protein 7.3 g/dL (6.4-8.2)
== END 2024-03-03 14:12 | disposition home or self-care (01) ==
PROVIDERS: Emergency Provider Emergency Medicine; PCP Family Medicine
DX: M62.838 Other muscle spasm (principal)
CPT/HCPCS: 36415; 80053; 93005; 99281; 83735; 93010; 99283

== ENCOUNTER 2024-03-08 18:37 | Emergency (ER) | payer OTHER, SELFPAY ==
--- NOTE | 2024-03-08 18:30 | RT.EKG_ITS ---
APPROVED REPORT Exam: Resting ECG Reason for Exam: screening Patient Location: E HR:107 bpm ECG Measurements Heart Rate 107 AXIS IN 165 P 24 QRSd 93 QRS 39 QT 341 T 5 QTc 456 Conclusion Sinus tachycardia, rate 107 No interval abnormalities No STEMI
[2024-03-08 18:40] VITALS: BP 131/60; PULSE 94; RESP 18; TEMP 36.8; O2SAT 98
--- NOTE | 2024-03-08 18:45 | ED.GENADUL_ITS ---
Discharge Plan Disposition Patient Disposition: Home Condition: Stable Discharge Details Clinical Impression: Anxiety Primary Care Provider: Brendon Vivar ED Provider: Richy Oakes Home Meds and New Rx's Prescriptions: Continued gabapentin 300 mg capsule 300 mg PO BID Qty: 180 3RF cyclobenzaprine 10 mg tablet 10 mg PO TID PRN (Reason: muscle spasm) Qty: 30 3RF simethicone 125 mg tablet,chewable 125 mg PO QID PRN (Reason: abdominal distention) Qty: 20 3RF clonazepam 1 mg tablet 1 mg PO BID Qty: 56 0RF methadone 10 mg/5 mL solution 105 mg PO QAM polyethylene glycol 3350 17 gram/dose powder 17 g PO DAILY PRN omeprazole 40 mg capsule,delayed release(DR/EC) 40 mg PO DAILY Qty: 90 3RF calcium carbonate [Tums] 200 mg calcium (500 mg) tablet,chewable 2,000 mg PO BID prochlorperazine maleate 5 mg tablet 5 mg PO TID PRN (Reason: acute nausea) Qty: 30 0RF calcitriol 0.5 mcg capsule 1 mcg PO BID magnesium gluconate 27 mg magnesium (500 mg) tablet 13.5 mg PO TID Qty: 60 3RF ondansetron 4 mg tablet,disintegrating 4 mg PO Q8H PRN Patient Comments: DISSOLVE ONE TABLET ON THE TONGUE EVERY 6 HOURS NEEDED FOR NAUSEA AND VOMITING benzonatate 100 mg capsule 100 mg PO TID PRN Patient Comments: TAKE ONE CAPSULE BY MOUTH EVERY 8 HOURS NEEDED FOR COUGH mupirocin 2 % ointment 1 applic TOPICAL TID Patient Comments: APPLY TOPICALLY TO AFFECTED AREA THREE TIMES A DAY Discharge Instructions Instructions: Anxiety, Adult ED Additional Instructions: You were seen in the emergency department for your subjective tingling in your toes and fingers and lips, you have had significant emotional events this weekend and your calcium and magnesium and potassium are within normal limits, I think you are symptoms are due to anxiety. Your chest x-ray is negative for any pneumonia or other pulmonary abnormality. Please take your at home as needed anxiety medication, please return to the emergency department for any emergent concerns. Referrals: Brendon Vivar DO [Primary Care Provider] - Discharge Data Discharge Date/Time-TO BE ENTERED AT DEPARTURE: 03/08/24 21:50 HPI General Date/Time Provider Initiated Documentation: 03/08/24 18:39 . HPI Narrative: 28 year-old male presents to ED today by POV/ambulating with a chief complaint of tingling in his fingers/toes/lips, fatigue, chest congestion, feels his magnesium and calcium are low as he has missed his at-home supplements due to some family member health emergencies- has been back and fourth to [facility]. Quality described as generalized tingling, chest congestion/cough, endorses high stress over the weekend, no radiation to nausea/vomiting, chest pain, palpitations, fever, severe headache, visual changes, shortness of breath. Severity is described as moderate. Palliating factors include nothing specific attempted. Provoking factors include nothing specific. Patient not anticoagulated. Related Data Home Medications ?Medication ?Instructions ?Recorded ?Confirmed calcium carbonate (Tums) 2,000 mg PO BID 02/02/23 03/08/24 methadone 10 mg/5 mL oral solution 105 mg PO QAM 06/12/23 03/08/24 polyethylene glycol 3350 17 17 g PO DAILY PRN 06/12/23 03/08/24 gram/dose oral powder gabapentin 300 mg capsule 300 mg PO BID #180 caps 06/23/23 03/08/24 omeprazole 40 mg capsule,delayed 40 mg PO DAILY #90 caps 07/21/23 03/08/24 release prochlorperazine maleate 5 mg 5 mg PO TID PRN acute nausea #30 09/06/23 03/08/24 tablet tabs magnesium gluconate 27 mg 13.5 mg (1/2 x 27 mg magnesium 11/21/23 03/08/24 magnesium (500 mg) tablet (500 mg)) PO TID #60 tabs cyclobenzaprine 10 mg tablet 10 mg PO TID PRN muscle spasm #30 12/04/23 03/08/24 tabs calcitriol 0.5 mcg capsule 1 mcg PO BID 02/01/24 03/08/24 clonazepam 1 mg tablet 1 mg PO BID #56 tabs 02/13/24 03/08/24 simethicone 125 mg chewable tablet 125 mg PO QID PRN abdominal 02/13/24 03/08/24 distention #20 tabs benzonatate 100 mg capsule 100 mg PO TID PRN 02/25/24 03/08/24 mupirocin 2 % topical ointment 1 applic topical TID 02/25/24 03/08/24 ondansetron 4 mg disintegrating 4 mg PO Q8H PRN 02/25/24 03/08/24 tablet Previous Rx's ?Medication ?Instructions ?Recorded gabapentin 300 mg capsule 300 mg PO BID #180 caps 06/23/23 omeprazole 40 mg capsule,delayed 40 mg PO DAILY #90 caps 07/21/23 release prochlorperazine maleate 5 mg 5 mg PO TID PRN acute nausea #30 09/06/23 tablet tabs magnesium gluconate 27 mg 13.5 mg (1/2 x 27 mg magnesium 11/21/23 magnesium (500 mg) tablet (500 mg)) PO TID #60 tabs cyclobenzaprine 10 mg tablet 10 mg PO TID PRN muscle spasm #30 12/04/23 tabs clonazepam 1 mg tablet 1 mg PO BID #56 tabs 02/13/24 simethicone 125 mg chewable tablet 125 mg PO QID PRN abdominal 02/13/24 distention #20 tabs Allergies Allergy/AdvReac Type Severity Reaction Status Date / Time codeine Allergy Intermediate pass out Verified 03/08/24 18:43 Penicillins Allergy Skin Rash Verified 03/08/24 18:43 amoxicillin AdvReac Intermediate Nausea Verified 03/08/24 18:43 dextromethorphan (From AdvReac Intermediate Other (See Verified 03/08/24 18:43 NyQuil) Comment) doxylamine (From NyQuil) AdvReac Intermediate Other (See Verified 03/08/24 18:43 Comment) pseudoephedrine (From NyQuil) AdvReac Intermediate Other (See Verified 03/08/24 18:43 Comment) General Stated Complaint: GenMedical ADRIANA: 3 Review of Systems All systems reviewed & are unremarkable except as noted in HPI and below Exam Narrative Exam Narrative: GENERAL APPEARANCE: Well-nourished, non-toxic, awake and alert, atraumatic, no acute distress. SKIN: Warm, pink, dry, intact, without rashes/lesions/ulcerations. HEAD: Normocephalic, atraumatic, normal hair distribution for gender/age. EYES: Normal conjunctiva, no exudates on lids/lashes. ENT: Nares patent, no circumoral cyanosis, no facial swelling NECK: Supple, trachea midline, painless cervical ROM. LUNGS/CHEST: Lungs CTA bilaterally, non-labored respirations, normal A/P diameter, symmetrical expansion, no chest wall deformity HEART (CV/PV): Regular rate and rhythm without murmur, no peripheral edema, no JVD. ABDOMEN: Soft, non-distended, no guarding. MSK: Normal ROM, no swelling/deformity to bilateral UEs or LEs, moving all extremities without weakness, no cyanosis, spine midline without tenderness, normal curvature. NEURO: Mental Status AAOx4 - alert to person, place, time, events No facial droop, no forehead involvement. Motor: No focal weakness - strength 5/5 in bilateral UEs and LEs, proximal and distal, symmetric. Sensory: sensation intact to light touch globally. Gait normal: patient ambulated without ataxia into ED room. PSYCH: euthymic, cooperative, pleasant, appropriate speech Course Vital Signs Vital signs: Vital Signs Temperature 36.8 C 03/08/24 18:40 Pulse 94 H 03/08/24 18:40 Respiratory Rate 18 03/08/24 18:40 Blood Pressure 131/60 03/08/24 18:40 Pulse Oximetry 98 03/08/24 18:40 Temperature 36.8 C 03/08/24 18:40 Pulse 94 H 03/08/24 18:40 Respiratory Rate 18 03/08/24 18:40 Respiratory Effort Normal 03/08/24 18:43 Blood Pressure 131/60 03/08/24 18:40 Pulse Oximetry 98 03/08/24 18:40 Pain Level 4 03/08/24 18:40 Medical Decision Making This dictation utilizes [id number] dictation software and may contain unedited grammatical errors. 28 year-old male presents to ED today by POV/ambulating with a chief complaint of tingling in his fingers/toes/lips, fatigue, chest congestion, feels his magnesium and calcium are low as he has missed his at-home supplements due to some family member health emergencies- has been back and fourth to [facility]. Quality described as generalized tingling, chest congestion/cough, endorses high stress over the weekend, no radiation to nausea/vomiting, chest pain, palpitations, fever, severe headache, visual changes, shortness of breath. Severity is described as moderate. Palliating factors include nothing specific attempted. Provoking factors include nothing specific. Patients' medical history: complex, unrelated. Family and social history: family member had stressful emergency over the weekend. Pertinent exam findings / vital signs include benign cardiopulmonary status, benign abdomen, nontoxic. Differential / pathologies of concern include electrolyte abnormality, URI. Diagnostic studies of: -CBC, CMP, Magnesium, EKG, XR Chest. -electrolytes wnl -no leukocytosis -EKG without arrhythmia, t-wave abnormalities -magnesium WNL -XR negative Interventions of: -none. ED Course/Assessment/Plan: 28-year-old male well-known to the ED presents feeling as though his magnesium and potassium are low but also notes stressful events over the weekend with family members medical emergency,, tingling in his hands and feet and lips, was found to have normal electrolytes we do suspect anxiety is playing a factor, he has no signs of respiratory distress or pneumonia on chest x-ray, counseled the patient on these findings he was comfortable with taking his as needed anxiety medicine at home with strict return criteria for any acute emergent concerns. Findings not consistent with electrolyte abnormality, respiratory distress. Disposition of Anxiety. Patient verbalized understanding of the plan and return to ED criteria and engaged in shared decision making. Medical Records Medical records reviewed: Yes I reviewed the patient's medical records. Imaging Data Radiologic Study: Attestation: I personally reviewed and interpreted this imaging study as follows: Imaging: X-Ray Radiologist's impression: Exam: XR Chest Exam date and time: 03/08/2024 9:10 PM Age: 28 years old Clinical indication: Other: Cough TECHNIQUE: Imaging protocol: Radiologic exam of the chest. Views: 2 views. COMPARISON: CT CHEST PE CTA 02/17/2024 12:52 AM FINDINGS: Lungs: Unremarkable. No consolidation. Pleural spaces: Unremarkable. No pleural effusion. No pneumothorax. Heart/Mediastinum: Unremarkable. No cardiomegaly. Bones/joints: Unremarkable. IMPRESSION: No acute findings. Dictated and Authenticated by: Tristian Jacobs MD. Lab Data Lab results reviewed: Yes I reviewed the patient's lab results. Labs: Laboratory Tests Range/Units 03/08/24 18:56 WBC (4.4-10.8) 10^3/uL 8.14 RBC (4.36-5.78) 10^6/uL 4.31 L Hgb (13.5-17.5) g/dL 11.9 L Hct (40.0-50.0) % 37.3 L MCV (80-95) fL 87 MCH (27.0-33.0) pg 27.6 MCHC (32.0-36.0) % 31.9 L RDW (11.8-14.1) % 15.4 H Plt Count (130-400) 10^3/uL 389 MPV (8.0-11.0) fL 9.7 Immature Gran % % 0.4 Neutrophils % % 60.6 Lymphocytes % % 26.0 Monocytes % % 9.6 Eosinophils % % 2.9 Basophils % % 0.5 Nucleated RBC % (0.0-0.3) % 0.0 Absolute Neutrophils (1.2-6.7) 10^3/uL 4.93 Absolute Lymphocytes (1.2-3.4) 10^3/uL 2.12 Absolute Monocytes (0.1-0.8) 10^3/uL 0.78 Absolute Eosinophils (0.0-0.7) 10^3/uL 0.24 Absolute Basophils (0.0-0.2) 10^3/uL 0.04 Sodium (136-145) mmol/L 138 Potassium (3.5-5.1) mmol/L 3.8 Chloride (98-107) mmol/L 99 Carbon Dioxide (21.0-32.0) mmol/L 32.1 H Anion Gap (3-11) mmol/L 6.9 BUN (7-18) mg/dL 16 Creatinine (0.70-1.30) mg/dL 1.4 H Est GFR (CKD-EPI 2020) (mL/min/1.73m2) 69.34 Glucose (74-106) mg/dL 112 H Calcium (8.5-10.1) mg/dL 9.0 Magnesium (1.8-2.4) mg/dL 1.8 Total Bilirubin (0.2-1.0) mg/dL 0.22 AST (15-37) U/L 26 ALT (16-63) U/L 33 Alkaline Phosphatase (46-116) U/L 217 H Total Protein (6.4-8.2) g/dL 8.2 Albumin (3.4-5.0) g/dL 3.2 L Quality:[facility] Health Related Social Needs: Health related social needs transpo insecurity PFSH All Active Problems (Updated 03/08/24 @ 19:50 by ANDREW Coleman) Anxiety (Chronic) Muscle spasm (Acute) Anxiety (Chronic) Pain of right calf (Acute) Hypomagnesemia (Acute) Hypocalcemia (Acute) Headache (Acute) History of anxiety (Acute) Left groin pain (Acute) Paresthesias (Acute) Obesity (Chronic) Migraine with aura (Acute) Insect bite of leg, right (Acute) Testicle lump (Acute) Hamstring tendinitis of left thigh (Acute) Pes anserine bursitis (Acute) Hypernatremia (Acute) Cervical radiculopathy (Acute) Left-sided Flower's palsy (Acute) Constipation (Acute) Grief reaction (Chronic) Opiate dependence, continuous (Acute) 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 Possible 2' Methadone, Clnzpm (?). Surg eval (+)/No further action. History of electrolyte imbalance (Acute) Neck pain on left side (Acute) with shoulder, upper back pain.. torticollis, radiating into left hip/leg Pulmonary nodule 1 cm or greater in diameter (Chronic) Therapeutic opioid induced constipation (Acute) Sphincter of Oddi dysfunction (Chronic) Abnormal CT scan, kidney (Acute) Intrahepatic bile duct dilation (Acute) Common bile duct dilatation (Chronic) Has been dilated for quite some time, now more-so. Normal LFTs. Known gallstones. Iatrogenic hypocalcemia (Acute) Multiple endocrine neoplasia type I (Chronic) Depression (Chronic) Hypocalcemia (Chronic) Elevated parathyroid hormone (Acute) Family history of coronary arteriosclerosis (Chronic) Father of LA at 50, mother had LA at 42 Severe anxiety with panic (Chronic) Medical History CKD (chronic kidney disease) stage 2, GFR 60-89 ml/min GFR 64-65, with Hx FLORESITA and GFR < 45 Primary hyperparathyroidism Complex medical condition Serious electrolyte imbalances, with gynecomastia, possible MEN Dx, CKD and anemia with baseline anxiety and Hx PTSD. Hypocalcemia Anxiety Depression Hyperlipidemia Family history of multiple endocrine neoplasia, type 1 PTSD (post-traumatic stress disorder) Per pt. states no triggers at this time. Surgical History History of laparoscopic cholecystectomy (~11/2023) H/O parathyroidectomy Family History Mother Anxiety Asthma Depression Sister Anxiety Depression Father Cancer lung & stomach Depression Diabetes Hypertension MEN 1 (multiple endocrine neoplasia) Social History Smoking/Tobacco Use Status: Never Smoking risk assessment performed?: Yes Alcohol Intake: never Drug use: Current Sobriety Substance use type: former substance user Adopted: No Caregiver/Support person: No Foster care: No Household members: none Housing: apartment Number of Children: 0 Communication Needs: None Education Level: high school Do you need help understanding health information?: Never current occupation: [employer] Pets and animals: Yes (Ally) Pets and animals: dog(s) Sexually active: No Do you think of yourself as: straight/heterosexual Current gender identity: male What is your relationship status?: How often do you talk on the phone with friends or family?: twice per week How often do you get together with friends or relatives?: never Do you belong to any clubs or organized social groups?: no Panel score (0-1 are the most socially isolated patients): 0 What type of physical activity do you participate in: walking Duration: 15-30 minutes/day Frequency: 5-6 times per week Maryam/Latter Day: Latter Day Special maryam needs: No Seatbelt use: always Helmet use: Yes Helmet use: always Drive intox or ride w/intox chuck wagon 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
[2024-03-08 18:47] VITALS: BP 131/60; PULSE 94; RESP 18; TEMP 36.8; O2SAT 98
[2024-03-08 19:08] LABS: Abs Immature Grans 0.03 10^3/uL (0.0-0.06); Absolute Basophil Count 0.04 10^3/uL (0.0-0.2); Absolute Eosinophil Count 0.24 10^3/uL (0.0-0.7); Absolute Lymphocyte Count 2.12 10^3/uL (1.2-3.4); Absolute Monocyte Count 0.78 10^3/uL (0.1-0.8); Absolute Neutrophil Count 4.93 10^3/uL (1.2-6.7); Basophils % 0.5 %; Eosinophils % 2.9 %; HCT 37.3 % (40.0-50.0); HGB 11.9 g/dL (13.5-17.5); Immature Grans % 0.4 %; MCH 27.6 pg (27.0-33.0); MCHC 31.9 % (32.0-36.0); MCV 87 fL (80-95); MPV 9.7 fL (8.0-11.0); Monocytes % 9.6 %; Neutrophils % 60.6 %; Platelet Count 389 10^3/uL (130-400); RBC 4.31 10^6/uL (4.36-5.78); RDW 15.4 % (11.8-14.1); WBC 8.14 10^3/uL (4.4-10.8)
[2024-03-08 19:23] LABS: ALT 33 U/L (16-63); AST 26 U/L (15-37); Albumin 3.2 g/dL (3.4-5.0); Alkaline Phosphatase 217 U/L (46-116); Anion Gap 6.9 mmol/L (3-11); BUN 16 mg/dL (7-18); Bilirubin, Total 0.22 mg/dL (0.2-1.0); CO2 32.1 mmol/L (21.0-32.0); CREATININE 1.4 mg/dL (0.70-1.30); Chloride 99 mmol/L (98-107); Estimated GFR 69.34 (mL/min/1.73m2); Glucose 112 mg/dL (74-106); Magnesium 1.8 mg/dL (1.8-2.4); Potassium 3.8 mmol/L (3.5-5.1); Sodium 138 mmol/L (136-145); Total Protein 8.2 g/dL (6.4-8.2)
--- NOTE | 2024-03-08 21:11 | DI.RAD_ITS ---
Exam(s) XR CHEST 2V PA LATERAL EXAM: XR CHEST 2V PA LATERAL CLINICAL HISTORY: cough. TECHNIQUE: 2D digital imaging was performed. COMPARISON: CR,XR XR CHEST 2V PA LATERAL from 11/29/2023 FINDINGS: 2 views: Heart size is normal. The mediastinum is not widened. Lungs are clear. No infiltrates nor pleural effusions. IMPRESSION: No acute pulmonary findings. DATA REPOSITORY: RADIATION DOSE DELIVERED:
[2024-03-08 21:48] VITALS: BP 132/62; PULSE 99; RESP 18; O2SAT 100
--- NOTE | 2024-03-08 22:13 | DI.VRAD_ITS ---
PROCEDURE INFORMATION: Exam: XR Chest Exam date and time: 03/08/2024 9:10 PM Age: 28 years old Clinical indication: Other: Cough TECHNIQUE: Imaging protocol: Radiologic exam of the chest. Views: 2 views. COMPARISON: CT CHEST PE CTA 02/17/2024 12:52 AM FINDINGS: Lungs: Unremarkable. No consolidation. Pleural spaces: Unremarkable. No pleural effusion. No pneumothorax. Heart/Mediastinum: Unremarkable. No cardiomegaly. Bones/joints: Unremarkable. IMPRESSION: No acute findings. Dictated and Authenticated by: Tristian Jacobs MD. Ordering:RAMANA Lockhart MD
== END 2024-03-08 21:50 | disposition home or self-care (01) ==
PROVIDERS: Emergency Provider Physician Assistant; PCP Family Medicine
DX: R20.2 Paresthesia of skin (principal); R52 Pain, unspecified; R05.1 Acute cough; F41.9 Anxiety disorder, unspecified
CPT/HCPCS: 36415; 80053; 93005; 99284; 71046; 83735; 85025; 93010; 99283

== ENCOUNTER 2024-03-15 09:13 | Emergency (ER) | payer OTHER, SELFPAY ==
--- NOTE | 2024-03-15 09:15 | RT.EKG_ITS ---
APPROVED REPORT Exam: Resting ECG Reason for Exam: jaw pain Patient Location: E HR:108 bpm ECG Measurements Heart Rate 108 AXIS HI 168 P 24 QRSd 91 QRS 33 QT 333 T 16 QTc 448 Conclusion Sinus tachycardia...rate> 99
[2024-03-15 09:26] VITALS: BP 108/76; PULSE 76; RESP 16; TEMP 36.7; O2SAT 96
== END 2024-03-15 11:20 | disposition left against medical advice (07) ==
PROVIDERS: PCP Family Medicine
DX: Z53.21 Procedure and treatment not carried out due to patient leaving prior to being seen by health care provider (principal)
CPT/HCPCS: 93005; 93010

== ENCOUNTER 2024-03-16 11:22 | Emergency (ER) | payer OTHER, SELFPAY ==
[2024-03-16] VITALS (22 sets, daily range): BP systolic 97–121; BP diastolic 41–84; PULSE 74–149; RESP 12–30; TEMP 37; O2SAT 94–99
--- NOTE | 2024-03-16 11:30 | RT.EKG_ITS ---
APPROVED REPORT Exam: Resting ECG Reason for Exam: palpitations Patient Location: E HR:143 bpm ECG Measurements Heart Rate 143 AXIS UT 132 P 66 QRSd 93 QRS -5 QT 299 T -2 QTc 461 Conclusion Sinus tachycardia...rate> 99 Narrow complex sinus tachycardia rate of 143. Normal axis. Intervals within normal limits. No ST s egment abnormalities. No T wave inversions. No acute injury pattern. Appears similar to prior date d last month.
[2024-03-16 12:07] LABS: Abs Immature Grans 0.04 10^3/uL (0.0-0.06); Absolute Basophil Count 0.04 10^3/uL (0.0-0.2); Absolute Eosinophil Count 0.15 10^3/uL (0.0-0.7); Absolute Lymphocyte Count 1.88 10^3/uL (1.2-3.4); Absolute Monocyte Count 0.87 10^3/uL (0.1-0.8); Absolute Neutrophil Count 7.08 10^3/uL (1.2-6.7); Basophils % 0.4 %; Eosinophils % 1.5 %; HCT 33.4 % (40.0-50.0); Immature Grans % 0.4 %; Lymphocytes % 18.7 %; MCH 28.5 pg (27.0-33.0); MCHC 32.9 % (32.0-36.0); MCV 87 fL (80-95); MPV 10.3 fL (8.0-11.0); Monocytes % 8.6 %; Neutrophils % 70.4 %; Platelet Count 331 10^3/uL (130-400); RBC 3.86 10^6/uL (4.36-5.78); RDW 15.6 % (11.8-14.1); RDW-SD 48.9 fL; WBC 10.06 10^3/uL (4.4-10.8)
--- NOTE | 2024-03-16 12:23 | ED.GENADUL_ITS ---
Discharge Plan Disposition Patient Disposition: Home Condition: Stable Discharge Details Clinical Impression: Hypomagnesemia, Hypocalcemia, Hypokalemia Primary Care Provider: Brendon Vivar ED Provider: Richy Oakes Home Meds and New Rx's Prescriptions: Continued gabapentin 300 mg capsule 300 mg PO BID Qty: 180 3RF cyclobenzaprine 10 mg tablet 10 mg PO TID PRN (Reason: muscle spasm) Qty: 30 3RF methadone 10 mg/5 mL solution 105 mg PO QAM polyethylene glycol 3350 17 gram/dose powder 17 g PO DAILY PRN omeprazole 40 mg capsule,delayed release(DR/EC) 40 mg PO DAILY Qty: 90 3RF calcitriol 0.5 mcg capsule 1 mcg PO BID Qty: 180 3RF clonazepam 1 mg tablet 1 mg PO BID Qty: 56 0RF simethicone 125 mg tablet,chewable 125 mg PO QID PRN (Reason: abdominal distention) Qty: 20 3RF fluoxetine 20 mg capsule 20 mg PO DAILY Qty: 60 0RF calcium carbonate [Tums] 200 mg calcium (500 mg) tablet,chewable 2,000 mg PO BID prochlorperazine maleate 5 mg tablet 5 mg PO TID PRN (Reason: acute nausea) Qty: 30 0RF magnesium gluconate 27 mg magnesium (500 mg) tablet 13.5 mg PO TID Qty: 60 3RF ondansetron 4 mg tablet,disintegrating 4 mg PO Q8H PRN Patient Comments: DISSOLVE ONE TABLET ON THE TONGUE EVERY 6 HOURS NEEDED FOR NAUSEA AND VOMITING benzonatate 100 mg capsule 100 mg PO TID PRN Patient Comments: TAKE ONE CAPSULE BY MOUTH EVERY 8 HOURS NEEDED FOR COUGH Discharge Instructions Instructions: Hypokalemia, Hypocalcemia, High Potassium Diet, Hypomagnesemia Additional Instructions: You were seen in the emergency department for your tingling around her hands feet and lips, he felt your electrolytes were low, he had mildly low magnesium as well as calcium and potassium. We repleted these here in the department, your heart rate normalized I think there was an element of anxiety coupled with your mild electrolyte derangements. Please take an extra dose for the next 2 to 3 days of your at home supplements, have attached information on high potassium diet. Otherwise your laboratory workup was benign and I found no actionable abnormalities, please follow-up with your outcomes analyst in regards to possible changes to your calcium regimen due to your parathyroid history. Please return to the emergency department for any emergent concerns. Referrals: Brendon Vivar DO [Primary Care Provider] - HPI General Date/Time Provider Initiated Documentation: 03/16/24 11:37 . HPI Narrative: 28 year-old male presents to ED today by POV/ambulating with a chief complaint of feels his electrolytes are low, states having tachycardia, severe tingling in hands/feet/lips with onset yesterday, he did present to the ED but went home due to wait times. Quality described as worse than it usually is- does have anxiety as well, no radiation to chest pain, shortness of breath, fever, cough, abdominal pain, nausea/vomiting, intractable diarrhea. Severity is described as severe. Palliating factors include nothing specific. Provoking factors include nothing specific. Patient not anticoagulated. Related Data Home Medications ?Medication ?Instructions ?Recorded ?Confirmed calcium carbonate (Tums) 2,000 mg PO BID 02/02/23 03/16/24 methadone 10 mg/5 mL oral solution 105 mg PO QAM 06/12/23 03/16/24 polyethylene glycol 3350 17 17 g PO DAILY PRN 06/12/23 03/16/24 gram/dose oral powder gabapentin 300 mg capsule 300 mg PO BID #180 caps 06/23/23 03/16/24 omeprazole 40 mg capsule,delayed 40 mg PO DAILY #90 caps 07/21/23 03/16/24 release prochlorperazine maleate 5 mg 5 mg PO TID PRN acute nausea #30 09/06/23 03/16/24 tablet tabs magnesium gluconate 27 mg 13.5 mg (1/2 x 27 mg magnesium 11/21/23 03/16/24 magnesium (500 mg) tablet (500 mg)) PO TID #60 tabs cyclobenzaprine 10 mg tablet 10 mg PO TID PRN muscle spasm #30 12/04/23 03/16/24 tabs benzonatate 100 mg capsule 100 mg PO TID PRN 02/25/24 03/16/24 ondansetron 4 mg disintegrating 4 mg PO Q8H PRN 02/25/24 03/16/24 tablet calcitriol 0.5 mcg capsule 1 mcg (2 x 0.5 mcg) PO BID #180 03/12/24 03/16/24 caps clonazepam 1 mg tablet 1 mg PO BID #56 tabs 03/12/24 03/16/24 fluoxetine 20 mg capsule 20 mg PO DAILY #60 caps 03/12/24 03/16/24 simethicone 125 mg chewable tablet 125 mg PO QID PRN abdominal 03/12/24 03/16/24 distention #20 tabs Previous Rx's ?Medication ?Instructions ?Recorded gabapentin 300 mg capsule 300 mg PO BID #180 caps 06/23/23 omeprazole 40 mg capsule,delayed 40 mg PO DAILY #90 caps 07/21/23 release prochlorperazine maleate 5 mg 5 mg PO TID PRN acute nausea #30 09/06/23 tablet tabs magnesium gluconate 27 mg 13.5 mg (1/2 x 27 mg magnesium 11/21/23 magnesium (500 mg) tablet (500 mg)) PO TID #60 tabs cyclobenzaprine 10 mg tablet 10 mg PO TID PRN muscle spasm #30 12/04/23 tabs calcitriol 0.5 mcg capsule 1 mcg (2 x 0.5 mcg) PO BID #180 03/12/24 caps clonazepam 1 mg tablet 1 mg PO BID #56 tabs 03/12/24 fluoxetine 20 mg capsule 20 mg PO DAILY #60 caps 03/12/24 simethicone 125 mg chewable tablet 125 mg PO QID PRN abdominal 03/12/24 distention #20 tabs Allergies Allergy/AdvReac Type Severity Reaction Status Date / Time codeine Allergy Intermediate pass out Verified 03/16/24 11:32 Penicillins Allergy Skin Rash Verified 03/16/24 11:32 amoxicillin AdvReac Intermediate Nausea Verified 03/16/24 11:32 dextromethorphan (From AdvReac Intermediate Other (See Verified 03/16/24 11:32 NyQuil) Comment) doxylamine (From NyQuil) AdvReac Intermediate Other (See Verified 03/16/24 11:32 Comment) pseudoephedrine (From NyQuil) AdvReac Intermediate Other (See Verified 03/16/24 11:32 Comment) General Stated Complaint: [employer] ADRIANA: 3 Review of Systems All systems reviewed & are unremarkable except as noted in HPI and below Exam Narrative Exam Narrative: GENERAL APPEARANCE: Well-nourished, non-toxic, awake and alert, atraumatic, no acute distress. SKIN: Warm, pale, dry, intact, without rashes/lesions/ulcerations. HEAD: Normocephalic, atraumatic, normal hair distribution for gender/age. EYES: Normal conjunctiva, no exudates on lids/lashes. ENT: Nares patent, no circumoral cyanosis, no facial swelling NECK: Supple, trachea midline, painless cervical ROM. LUNGS/CHEST: Lungs CTA bilaterally- no rhonchi/rales/wheezes diffusely, non- labored respirations, normal A/P diameter, symmetrical expansion, no chest wall deformity HEART (CV/PV): Regular rate and rhythm without murmur- tachycardic on arrival, no peripheral edema, no JVD. ABDOMEN: Soft, non-distended, no guarding. MSK: Normal ROM, no swelling/deformity to bilateral UEs or LEs, moving all extremities without weakness, no cyanosis, spine midline without tenderness, normal curvature. NEURO: Mental Status AAOx4 - alert to person, place, time, events No facial droop, no forehead involvement. Motor: No focal weakness - strength 5/5 in bilateral UEs and LEs, proximal and distal, symmetric. Sensory: sensation intact to light touch globally. Gait normal: patient ambulated without ataxia into ED room. PSYCH: euthymic, cooperative, pleasant, appropriate speech Course Vital Signs Vital signs: Vital Signs Temperature 37.0 C 03/16/24 11:34 Pulse 149 H 03/16/24 11:34 Respiratory Rate 16 03/16/24 11:34 Blood Pressure 121/84 03/16/24 11:34 Pulse Oximetry 95 03/16/24 11:34 Temperature 37.0 C 03/16/24 11:34 Temperature Source Oral 03/16/24 11:34 Pulse 149 H 03/16/24 11:34 Respiratory Rate 16 03/16/24 12:01 Respiratory Effort Normal 03/16/24 12:01 Respiratory Depth Normal 03/16/24 12:01 Respiratory Pattern Normal 03/16/24 12:01 Blood Pressure 121/84 03/16/24 11:34 Blood Pressure Position Sitting 03/16/24 11:34 Pulse Oximetry 95 03/16/24 11:34 Oxygen Delivery Method Room Air 03/16/24 11:34 Oxygen Flow Rate 0 03/16/24 11:34 Pain Level 4 03/16/24 11:34 Lab/Test Results Lab/Test Results: Laboratory Tests Range/Units 03/16/24 11:53 WBC (4.4-10.8) 10^3/uL 10.06 RBC (4.36-5.78) 10^6/uL 3.86 L Hgb (13.5-17.5) g/dL 11.0 L Hct (40.0-50.0) % 33.4 L MCV (80-95) fL 87 MCH (27.0-33.0) pg 28.5 MCHC (32.0-36.0) % 32.9 RDW (11.8-14.1) % 15.6 H Plt Count (130-400) 10^3/uL 331 MPV (8.0-11.0) fL 10.3 Immature Gran % % 0.4 Neutrophils % % 70.4 Lymphocytes % % 18.7 Monocytes % % 8.6 Eosinophils % % 1.5 Basophils % % 0.4 Nucleated RBC % (0.0-0.3) % 0.0 Absolute Neutrophils (1.2-6.7) 10^3/uL 7.08 H Absolute Lymphocytes (1.2-3.4) 10^3/uL 1.88 Absolute Monocytes (0.1-0.8) 10^3/uL 0.87 H Absolute Eosinophils (0.0-0.7) 10^3/uL 0.15 Absolute Basophils (0.0-0.2) 10^3/uL 0.04 Troponin I Cancelled NT-Pro-B Natriuret Pep Cancelled TSH Cancelled Medical Decision Making This dictation utilizes [id number] dictation software and may contain unedited grammatical errors. 28 year-old male presents to ED today by POV/ambulating with a chief complaint of feels his electrolytes are low, states having tachycardia, severe tingling in hands/feet/lips with onset yesterday, he did present to the ED but went home due to wait times. Quality described as worse than it usually is- does have anxiety as well, no radiation to chest pain, shortness of breath, fever, cough, abdominal pain, nausea/vomiting, intractable diarrhea. Severity is described as severe. Palliating factors include nothing specific. Provoking factors include nothing specific. Patients' medical history: Complex medical history, history of hyperparathyroidism, has at home supplements of magnesium and calcium, history of anxiety especially over health related issues, PTSD, complex GI history. Family and social history: Noncontributory. Pertinent exam findings / vital signs include arrives in sinus tach which resolved, benign cardiopulmonary exam, benign abdomen, neuro intact. Differential / pathologies of concern include electrolyte disturbance, infection, anxiety, unlikely RVR, unlikely ACS, unlikely thyroid storm. Diagnostic studies of: -CBC, CMP, magnesium, troponin, BNP, TSH, D-dimer, EKG. -CBC shows no leukocytosis, chronic anemia, no left shift -D-dimer negative with low risk Wells I do not suspect PE -Troponin negative with reliable onset -BNP negative -TSH within normal limits -Magnesium is mildly low at 1.6, patient has mildly low potassium at 3.2 and mildly low calcium at 7.7 Interventions of: -IV fluids, potassium by IV, p.o. calcium supplements, IV repletion of magnesium. ED Course/Assessment/Plan: 28-year-old male that is well-known to the department for many complex issues including anxiety and chronic electrolyte disturbances due to history of primary hyperparathyroidism. He presents with severe tingling of the hands and feet and around his lips, he has an anxious appearance about this and does perseverate on issues similar to this in the past with normal lab readings. He was found to have some mild electrolyte abnormalities, I reassured him that these were not dangerous at the time and we did replete and I advised to take an extra dose at home and perform high potassium diet. I suspect an element of anxiety, his significant tachycardia on arrival did completely normalize to his baseline and he was in no acute distress, he was reassured by this fact and he will return for any emergent concerns. Findings not consistent with dangerous electrolyte abnormality, torsades, ACS, PE, CHF, thyroid storm. Disposition of hypokalemia, hypocalcemia, hypomagnesemia. Patient verbalized understanding of the plan and return to ED criteria and [facility] ed in shared decision making. Medical Records Medical records reviewed: Yes I reviewed the patient's medical records. Lab Data Lab results reviewed: Yes I reviewed the patient's lab results. Labs: Laboratory Tests Range/Units 03/16/24 03/16/24 03/16/24 11:53 11:53 11:53 WBC (4.4-10.8) 10^3/uL 10.06 RBC (4.36-5.78) 10^6/uL 3.86 L Hgb (13.5-17.5) g/dL 11.0 L Hct (40.0-50.0) % 33.4 L MCV (80-95) fL 87 MCH (27.0-33.0) pg 28.5 MCHC (32.0-36.0) % 32.9 RDW (11.8-14.1) % 15.6 H Plt Count (130-400) 10^3/uL 331 MPV (8.0-11.0) fL 10.3 Immature Gran % % 0.4 Neutrophils % % 70.4 Lymphocytes % % 18.7 Monocytes % % 8.6 Eosinophils % % 1.5 Basophils % % 0.4 Nucleated RBC % (0.0-0.3) % 0.0 Absolute Neutrophils (1.2-6.7) 10^3/uL 7.08 H Absolute Lymphocytes (1.2-3.4) 10^3/uL 1.88 Absolute Monocytes (0.1-0.8) 10^3/uL 0.87 H Absolute Eosinophils (0.0-0.7) 10^3/uL 0.15 Absolute Basophils (0.0-0.2) 10^3/uL 0.04 D-Dimer (<500) ng/mlFEU 342 Sodium (136-145) mmol/L 137 Potassium (3.5-5.1) mmol/L 3.2 L Chloride (98-107) mmol/L 96 L Carbon Dioxide (21.0-32.0) mmol/L 31.9 Anion Gap (3-11) mmol/L 9.1 BUN (7-18) mg/dL 10 Creatinine (0.70-1.30) mg/dL 1.3 Est GFR (CKD-EPI 2020) (mL/min/1.73m2) 75.79 Glucose (74-106) mg/dL 124 H Calcium (8.5-10.1) mg/dL 7.7 L Magnesium (1.8-2.4) mg/dL 1.6 L Total Bilirubin (0.2-1.0) mg/dL 0.24 AST (15-37) U/L 24 ALT (16-63) U/L 24 Alkaline Phosphatase (46-116) U/L 204 H Troponin I (<or=76) ng/L < 4 Cancelled NT-Pro-B Natriuret Pep (<300) pg/mL 14 Cancelled Total Protein (6.4-8.2) g/dL 7.6 Albumin (3.4-5.0) g/dL 2.9 L TSH (0.36-3.74) uIU/mL 1.59 Range/Units 03/16/24 11:53 WBC (4.4-10.8) 10^3/uL RBC (4.36-5.78) 10^6/uL Hgb (13.5-17.5) g/dL Hct (40.0-50.0) % MCV (80-95) fL MCH (27.0-33.0) pg MCHC (32.0-36.0) % RDW (11.8-14.1) % Plt Count (130-400) 10^3/uL MPV (8.0-11.0) fL Immature Gran % % Neutrophils % % Lymphocytes % % Monocytes % % Eosinophils % % Basophils % % Nucleated RBC % (0.0-0.3) % Absolute Neutrophils (1.2-6.7) 10^3/uL Absolute Lymphocytes (1.2-3.4) 10^3/uL Absolute Monocytes (0.1-0.8) 10^3/uL Absolute Eosinophils (0.0-0.7) 10^3/uL Absolute Basophils (0.0-0.2) 10^3/uL D-Dimer (<500) ng/mlFEU Sodium (136-145) mmol/L Potassium (3.5-5.1) mmol/L Chloride (98-107) mmol/L Carbon Dioxide (21.0-32.0) mmol/L Anion Gap (3-11) mmol/L BUN (7-18) mg/dL Creatinine (0.70-1.30) mg/dL Est GFR (CKD-EPI 2020) (mL/min/1.73m2) Glucose (74-106) mg/dL Calcium (8.5-10.1) mg/dL Magnesium (1.8-2.4) mg/dL Total Bilirubin (0.2-1.0) mg/dL AST (15-37) U/L ALT (16-63) U/L Alkaline Phosphatase (46-116) U/L Troponin I (<or=76) ng/L NT-Pro-B Natriuret Pep (<300) pg/mL Total Protein (6.4-8.2) g/dL Albumin (3.4-5.0) g/dL TSH (0.36-3.74) uIU/mL Cancelled Quality:SDOH Health Related Social Needs: Health related social needs transpo insecurity PFSH All Active Problems (Updated 03/16/24 @ 13:54 by ANDREW Coleman) Hypokalemia (Acute) Hypocalcemia (Acute) Hypomagnesemia (Acute) Anxiety (Chronic) Muscle spasm (Acute) Anxiety (Chronic) Pain of right calf (Acute) Hypomagnesemia (Acute) Hypocalcemia (Acute) History of anxiety (Acute) Left groin pain (Acute) Paresthesias (Acute) Obesity (Chronic) Migraine with aura (Acute) Insect bite of leg, right (Acute) Testicle lump (Acute) Hamstring tendinitis of left thigh (Acute) Pes anserine bursitis (Acute) Hypernatremia (Acute) Cervical radiculopathy (Acute) Left-sided Flower's palsy (Acute) Constipation (Acute) Grief reaction (Chronic) Opiate dependence, continuous (Acute) 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 Possible 2' Methadone, Clnzpm (?). Surg eval (+)/No further action. History of electrolyte imbalance (Acute) Neck pain on left side (Acute) with shoulder, upper back pain.. torticollis, radiating into left hip/leg Pulmonary nodule 1 cm or greater in diameter (Chronic) Therapeutic opioid induced constipation (Acute) Sphincter of Oddi dysfunction (Chronic) Abnormal CT scan, kidney (Acute) Intrahepatic bile duct dilation (Acute) Common bile duct dilatation (Chronic) Has been dilated for quite some time, now more-so. Normal LFTs. Known gallstones. Iatrogenic hypocalcemia (Acute) Multiple endocrine neoplasia type I (Chronic) Depression (Chronic) Hypocalcemia (Chronic) Elevated parathyroid hormone (Acute) Family history of coronary arteriosclerosis (Chronic) Father of IA at 50, mother had IA at 42 Severe anxiety with panic (Chronic) Medical History CKD (chronic kidney disease) stage 2, GFR 60-89 ml/min GFR 64-65, with Hx FLORESITA and GFR < 45 Primary hyperparathyroidism Complex medical condition Serious electrolyte imbalances, with gynecomastia, possible MEN Dx, CKD and anemia with baseline anxiety and Hx PTSD. Hypocalcemia Anxiety Depression Hyperlipidemia Family history of multiple endocrine neoplasia, type 1 PTSD (post-traumatic stress disorder) Per pt. states no triggers at this time. Surgical History History of laparoscopic cholecystectomy (~11/2023) H/O parathyroidectomy Family History Mother Anxiety Asthma Depression Sister Anxiety Depression Father Cancer lung & stomach Depression Diabetes Hypertension MEN 1 (multiple endocrine neoplasia) Social History Smoking/Tobacco Use Status: Never Smoking risk assessment performed?: Yes Alcohol Intake: never Drug use: Current Sobriety Substance use type: former substance user Adopted: No Caregiver/Support person: No Foster care: No Household members: none Housing: apartment Number of Children: 0 Communication Needs: None Education Level: high school Do you need help understanding health information?: Never current occupation: [employer] Pets and animals: Yes (Ally) Pets and animals: dog(s) Sexually active: No Do you think of yourself as: straight/heterosexual Current gender identity: male What is your relationship status?: How often do you talk on the phone with friends or family?: twice per week How often do you get together with friends or relatives?: never Do you belong to any clubs or organized social groups?: no Panel score (0-1 are the most socially isolated patients): 0 What type of physical activity do you participate in: walking Duration: 15-30 minutes/day Frequency: 5-6 times per week Maryam/Rastafarian: Mormonism Special maryam needs: No Seatbelt use: always Helmet use: Yes Helmet use: always Drive intox or ride w/intox straddle truck 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
[2024-03-16 12:42] LABS: ALT 24 U/L (16-63); AST 24 U/L (15-37); Albumin 2.9 g/dL (3.4-5.0); Alkaline Phosphatase 204 U/L (46-116); Anion Gap 9.1 mmol/L (3-11); BUN 10 mg/dL (7-18); Bilirubin, Total 0.24 mg/dL (0.2-1.0); CO2 31.9 mmol/L (21.0-32.0); CREATININE 1.3 mg/dL (0.70-1.30); Calcium 7.7 mg/dL (8.5-10.1); Chloride 96 mmol/L (98-107); Estimated GFR 75.79 (mL/min/1.73m2); Glucose 124 mg/dL (74-106); Magnesium 1.6 mg/dL (1.8-2.4); NT-proBNP 14 pg/mL (<300); Potassium 3.2 mmol/L (3.5-5.1); Sodium 137 mmol/L (136-145); TSH (W/Ref FT4) 1.59 uIU/mL (0.36-3.74); Total Protein 7.6 g/dL (6.4-8.2)
[2024-03-16 12:45] LABS: Troponin I < 4 ng/L (<or=76)
[2024-03-16 12:54] LABS: D-Dimer 342 ng/mlFEU (<500)
[2024-03-16] MEDS: Normal Saline 1,000 ML 1000 ML IV (13:00)
[2024-03-16] MEDS: POTASSIUM CHLORIDE 10 MEQ/100 ML BAG 100 MEQ IVINF (13:51)
[2024-03-16] MEDS: MAGNESIUM SULFATE 1 GM/100 ML BAG IVINF (13:51)
== END 2024-03-16 15:01 | disposition home or self-care (01) ==
PROVIDERS: Emergency Provider Physician Assistant; PCP Family Medicine
DX: E83.42 Hypomagnesemia (principal); E83.51 Hypocalcemia; E87.6 Hypokalemia; N18.2 Chronic kidney disease, stage 2 (mild); E78.5 Hyperlipidemia, unspecified
CPT/HCPCS: 36415; 80053; 93005; 96361; 96365; 96368; 99284; 83735; 83880; 84443; 84484; 85025; 85379; 93010; J3475; J3480

== ENCOUNTER 2024-03-19 20:46 | Emergency (ER) | payer OTHER, SELFPAY ==
[2024-03-19 20:48] VITALS: BP 133/87; PULSE 109; RESP 16; TEMP 36.6; O2SAT 95
--- NOTE | 2024-03-19 21:01 | W.ED.GENAD ---
Discharge Plan Disposition Patient Disposition: Home Discharge Details Clinical Impression: Facial flushing Primary Care Provider: Brendon Vivar ED Provider: Jeovany Elias Home Meds and New Rx's Prescriptions: No Action gabapentin 300 mg capsule 300 mg PO BID Qty: 180 3RF cyclobenzaprine 10 mg tablet 10 mg PO TID PRN (Reason: muscle spasm) Qty: 30 3RF methadone 10 mg/5 mL solution 100 mg PO QAM polyethylene glycol 3350 17 gram/dose powder 17 g PO DAILY PRN omeprazole 40 mg capsule,delayed release(DR/EC) 40 mg PO DAILY Qty: 90 3RF calcitriol 0.5 mcg capsule 1 mcg PO BID Qty: 180 3RF clonazepam 1 mg tablet 1 mg PO BID Qty: 56 0RF simethicone 125 mg tablet,chewable 125 mg PO QID PRN (Reason: abdominal distention) Qty: 20 3RF fluoxetine 20 mg capsule 20 mg PO DAILY Qty: 60 0RF calcium carbonate [Tums] 200 mg calcium (500 mg) tablet,chewable 2,000 mg PO BID prochlorperazine maleate 5 mg tablet 5 mg PO TID PRN (Reason: acute nausea) Qty: 30 0RF magnesium gluconate 27 mg magnesium (500 mg) tablet 13.5 mg PO TID Qty: 60 3RF ondansetron 4 mg tablet,disintegrating 4 mg PO Q8H PRN Patient Comments: DISSOLVE ONE TABLET ON THE TONGUE EVERY 6 HOURS NEEDED FOR NAUSEA AND VOMITING benzonatate 100 mg capsule 100 mg PO TID PRN Patient Comments: TAKE ONE CAPSULE BY MOUTH EVERY 8 HOURS NEEDED FOR COUGH prednisone 20 mg tablet 40 mg PO DAILY Patient Comments: TAKE TWO TABLETS BY MOUTH EVERY DAY FOR 4 DAYS Discharge Instructions Additional Instructions: apply cool rag to areas return if you develop itching, vomiting, or shortness of breath HPI General Date/Time Provider Initiated Documentation: 03/19/24 20:54. Limitations to Documentation: no limitations. Information obtained by: patient. HPI Narrative: 28-year-old gentleman with multiple medical comorbidities presents for evaluation of red face and chest. He reports that he had onset of symptoms after eating a spicy [place] food bowl. He denies any itching or shortness of breath, nausea abdominal pain or voice change. He states that his face and chest just feel very hot. He noted that they were very recommended, but does not have any itching. Reports that he was seen recently and diagnosed with a bronchitis and has been taking steroids. Related Data Home Medications ?Medication ?Instructions ?Recorded ?Confirmed calcium carbonate (Tums) 2,000 mg PO BID 02/02/23 03/19/24 methadone 10 mg/5 mL oral solution 100 mg PO QAM 06/12/23 03/19/24 polyethylene glycol 3350 17 17 g PO DAILY PRN 06/12/23 03/19/24 gram/dose oral powder gabapentin 300 mg capsule 300 mg PO BID #180 caps 06/23/23 03/19/24 omeprazole 40 mg capsule,delayed 40 mg PO DAILY #90 caps 07/21/23 03/19/24 release prochlorperazine maleate 5 mg 5 mg PO TID PRN acute nausea #30 09/06/23 03/19/24 tablet tabs magnesium gluconate 27 mg 13.5 mg (1/2 x 27 mg magnesium 11/21/23 03/19/24 magnesium (500 mg) tablet (500 mg)) PO TID #60 tabs cyclobenzaprine 10 mg tablet 10 mg PO TID PRN muscle spasm #30 12/04/23 03/19/24 tabs benzonatate 100 mg capsule 100 mg PO TID PRN 02/25/24 03/19/24 ondansetron 4 mg disintegrating 4 mg PO Q8H PRN 02/25/24 03/19/24 tablet calcitriol 0.5 mcg capsule 1 mcg (2 x 0.5 mcg) PO BID #180 03/12/24 03/19/24 caps clonazepam 1 mg tablet 1 mg PO BID #56 tabs 03/12/24 03/19/24 fluoxetine 20 mg capsule 20 mg PO DAILY #60 caps 03/12/24 03/19/24 simethicone 125 mg chewable tablet 125 mg PO QID PRN abdominal 03/12/24 03/19/24 distention #20 tabs prednisone 20 mg tablet 40 mg PO DAILY 03/19/24 03/19/24 Previous Rx's ?Medication ?Instructions ?Recorded gabapentin 300 mg capsule 300 mg PO BID #180 caps 06/23/23 omeprazole 40 mg capsule,delayed 40 mg PO DAILY #90 caps 07/21/23 release prochlorperazine maleate 5 mg 5 mg PO TID PRN acute nausea #30 09/06/23 tablet tabs magnesium gluconate 27 mg 13.5 mg (1/2 x 27 mg magnesium 11/21/23 magnesium (500 mg) tablet (500 mg)) PO TID #60 tabs cyclobenzaprine 10 mg tablet 10 mg PO TID PRN muscle spasm #30 12/04/23 tabs calcitriol 0.5 mcg capsule 1 mcg (2 x 0.5 mcg) PO BID #180 03/12/24 caps clonazepam 1 mg tablet 1 mg PO BID #56 tabs 03/12/24 fluoxetine 20 mg capsule 20 mg PO DAILY #60 caps 03/12/24 simethicone 125 mg chewable tablet 125 mg PO QID PRN abdominal 03/12/24 distention #20 tabs Allergies Allergy/AdvReac Type Severity Reaction Status Date / Time codeine Allergy Intermediate pass out Verified 03/19/24 20:53 Penicillins Allergy Skin Rash Verified 03/19/24 20:53 amoxicillin AdvReac Intermediate Nausea Verified 03/19/24 20:53 dextromethorphan (From AdvReac Intermediate Other (See Verified 03/19/24 20:53 NyQuil) Comment) doxylamine (From NyQuil) AdvReac Intermediate Other (See Verified 03/19/24 20:53 Comment) pseudoephedrine (From NyQuil) AdvReac Intermediate Other (See Verified 03/19/24 20:53 Comment) General Stated Complaint: Allergic ADRIANA: 4 Exam Narrative Exam Narrative: Review of Systems: All systems reviewed & are unremarkable except as noted in HPI and below Well-developed, no acute distress NCAT PERRL, normal conjunctiva RRR Unlabored respiratory effort, clear bilaterally no wheezing Cheeks and upper chest appear erythematous, not urticarial, there is no other rash or lesions noted Course Vital Signs Vital signs: Vital Signs Temperature 36.6 C 03/19/24 20:48 Pulse 109 H 03/19/24 20:48 Respiratory Rate 16 03/19/24 20:48 Blood Pressure 133/87 03/19/24 20:48 Pulse Oximetry 95 03/19/24 20:48 Temperature 36.6 C 03/19/24 20:48 Temperature Source Temporal Artery Scan 03/19/24 20:48 Pulse 109 H 10/04/24 20:48 Respiratory Rate 16 03/19/24 20:48 Respiratory Effort Normal, Non-Labored 03/19/24 20:50 Blood Pressure 133/87 03/19/24 20:48 Blood Pressure Position Sitting 03/19/24 20:48 Pulse Oximetry 95 03/19/24 20:48 Oxygen Delivery Method Room Air 03/19/24 20:48 Oxygen Flow Rate 0 03/19/24 20:48 Pain Level 0 03/19/24 20:48 Medical Decision Making Emergent evaluation of skin color change. Patient is not displaying any signs or symptoms concerning for allergic reaction or anaphylaxis. He has red discoloration of his face and upper chest wall, but there is no urticaria, lesions or any signs or symptoms that this is consistent with an allergic reaction. He is currently on steroids, this may be contributing to some flushing response after eating some spicy food. There is no signs or symptoms of respiratory distress. Do not feel that any emergent testing is indicated at this time. Patient was reassured and discharged in good condition. Quality:SDOH Health Related Social Needs: Health related social needs transpo insecurity PFSH All Active Problems Facial flushing (Acute) Hypokalemia (Acute) Hypocalcemia (Acute) Hypomagnesemia (Acute) Anxiety (Chronic) Muscle spasm (Acute) Anxiety (Chronic) Pain of right calf (Acute) Hypomagnesemia (Acute) Hypocalcemia (Acute) History of anxiety (Acute) Obesity (Chronic) Migraine with aura (Acute) Insect bite of leg, right (Acute) Testicle lump (Acute) Hamstring tendinitis of left thigh (Acute) Pes anserine bursitis (Acute) Hypernatremia (Acute) Cervical radiculopathy (Acute) Left-sided Flower's palsy (Acute) Constipation (Acute) Grief reaction (Chronic) Opiate dependence, continuous (Acute) 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 Possible 2' Methadone, Clnzpm (?). Surg eval (+)/No further action. History of electrolyte imbalance (Acute) Neck pain on left side (Acute) with shoulder, upper back pain.. torticollis, radiating into left hip/leg Pulmonary nodule 1 cm or greater in diameter (Chronic) Therapeutic opioid induced constipation (Acute) Sphincter of Oddi dysfunction (Chronic) Abnormal CT scan, kidney (Acute) Intrahepatic bile duct dilation (Acute) Common bile duct dilatation (Chronic) Has been dilated for quite some time, now more-so. Normal LFTs. Known gallstones. Iatrogenic hypocalcemia (Acute) Multiple endocrine neoplasia type I (Chronic) Depression (Chronic) Hypocalcemia (Chronic) Elevated parathyroid hormone (Acute) Family history of coronary arteriosclerosis (Chronic) Father of [place] at 50, mother had [place] at 42 Severe anxiety with panic (Chronic) Medical History Urinary tract infection CKD (chronic kidney disease) stage 2, GFR 60-89 ml/min GFR 64-65, with Hx FLORESITA and GFR < 45 Primary hyperparathyroidism Complex medical condition Serious electrolyte imbalances, with gynecomastia, possible MEN Dx, CKD and anemia with baseline anxiety and Hx PTSD. Hypocalcemia Anxiety Depression Hyperlipidemia Family history of multiple endocrine neoplasia, type 1 PTSD (post-traumatic stress disorder) Per pt. states no triggers at this time. Surgical History History of laparoscopic cholecystectomy (~11/2023) H/O parathyroidectomy Family History Mother Anxiety Asthma Depression Sister Anxiety Depression Father Cancer lung & stomach Depression Diabetes Hypertension MEN 1 (multiple endocrine neoplasia) Social History Smoking/Tobacco Use Status: Never Smoking risk assessment performed?: Yes Alcohol Intake: never Drug use: Current Sobriety Substance use type: former substance user Adopted: No Caregiver/Support person: No Foster care: No Household members: none Housing: apartment Number of Children: 0 Communication Needs: None Education Level: high school Do you need help understanding health information?: Never 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[employer] Pets and animals: Yes (Ally) Pets and animals: dog(s) Sexually active: No Do you think of yourself as: straight/heterosexual Current gender identity: male What is your relationship status?: How often do you talk on the phone with friends or family?: twice per week How often do you get together with friends or relatives?: never Do you belong to any clubs or organized social groups?: no Panel score (0-1 are the most socially isolated patients): 0 What type of physical activity do you participate in: walking Duration: 15-30 minutes/day Frequency: 5-6 times per week Maryam/Episcopal: Roman Catholic Special maryam needs: No Seatbelt use: always Helmet use: Yes Helmet use: always Drive 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
== END 2024-03-19 22:19 | disposition home or self-care (01) ==
PROVIDERS: Emergency Provider Emergency Medicine; PCP Family Medicine
DX: R23.2 Flushing (principal); N18.2 Chronic kidney disease, stage 2 (mild); E89.2 Postprocedural hypoparathyroidism
CPT/HCPCS: 99283

== ENCOUNTER 2024-03-23 03:57 | Emergency (ER) | payer OTHER, SELFPAY ==
[2024-03-23] VITALS (9 sets, daily range): BP systolic 124–162; BP diastolic 77–90; PULSE 79–98; RESP 14–16; TEMP 36.2; O2SAT 94–98
--- NOTE | 2024-03-23 04:19 | ED.GENADUL_ITS ---
Discharge Plan Disposition Patient Disposition: Home Condition: Good Discharge Details Chief Complaint: GenMedical Clinical Impression: Hypocalcemia Primary Care Provider: Brendon Vivar ED Provider: Richy Eagle Home Meds and New Rx's Prescriptions: No Action gabapentin 300 mg capsule 300 mg PO BID Qty: 180 3RF cyclobenzaprine 10 mg tablet 10 mg PO TID PRN (Reason: muscle spasm) Qty: 30 3RF methadone 10 mg/5 mL solution 100 mg PO QAM polyethylene glycol 3350 17 gram/dose powder 17 g PO DAILY PRN omeprazole 40 mg capsule,delayed release(DR/EC) 40 mg PO DAILY Qty: 90 3RF calcitriol 0.5 mcg capsule 1 mcg PO BID Qty: 180 3RF clonazepam 1 mg tablet 1 mg PO BID Qty: 56 0RF simethicone 125 mg tablet,chewable 125 mg PO QID PRN (Reason: abdominal distention) Qty: 20 3RF fluoxetine 20 mg capsule 20 mg PO DAILY Qty: 60 0RF calcium carbonate [Tums] 200 mg calcium (500 mg) tablet,chewable 2,000 mg PO BID prochlorperazine maleate 5 mg tablet 5 mg PO TID PRN (Reason: acute nausea) Qty: 30 0RF magnesium gluconate 27 mg magnesium (500 mg) tablet 13.5 mg PO TID Qty: 60 3RF ondansetron 4 mg tablet,disintegrating 4 mg PO Q8H PRN Patient Comments: DISSOLVE ONE TABLET ON THE TONGUE EVERY 6 HOURS NEEDED FOR NAUSEA AND VOMITING benzonatate 100 mg capsule 100 mg PO TID PRN Patient Comments: TAKE ONE CAPSULE BY MOUTH EVERY 8 HOURS NEEDED FOR COUGH prednisone 20 mg tablet 40 mg PO DAILY Patient Comments: TAKE TWO TABLETS BY MOUTH EVERY DAY FOR 4 DAYS Discharge Instructions Instructions: Hypocalcemia Additional Instructions: At this time your calcium has been replaced. Please continue taking your extra Tums regularly. If you notice any worsening of your symptoms, or any new symptoms such as vomiting, diarrhea, fever, chills, shortness of breath, chest pain, numbness, weakness, or fainting , please return immediately to the emergency department for reevaluation. Please follow up with your primary care provider as soon as possible for reassessment and reevaluation. As always, it was a pleasure participating in your medical care today. Referrals: Brendon Vivar DO [Primary Care Provider] - HPI General Date/Time Provider Initiated Documentation: 03/23/24 04:06 . HPI Narrative: This is a 28-year-old male with a past medical history significant for anxiety, depression, high cholesterol, men type I, multiple electrolyte abnormalities with [place] [facility] [place], [place]D, who presents today for suspicion of low calcium. Patient states that over the last day or so he has noticed some increased facial flushing, he has been taking extra Tums because of this. 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 He denies any tetany, he denies any headache or chest pain or shortness of breath. No other complaints. He states he has been taking his medications as directed otherwise. Related Data Home Medications ?Medication ?Instructions ?Recorded ?Confirmed calcium carbonate (Tums) 2,000 mg PO BID 02/02/23 03/23/24 methadone 10 mg/5 mL oral solution 100 mg PO QAM 06/12/23 03/23/24 polyethylene glycol 3350 17 17 g PO DAILY PRN 06/12/23 03/23/24 gram/dose oral powder gabapentin 300 mg capsule 300 mg PO BID #180 caps 06/23/23 03/23/24 omeprazole 40 mg capsule,delayed 40 mg PO DAILY #90 caps 07/21/23 03/23/24 release prochlorperazine maleate 5 mg 5 mg PO TID PRN acute nausea #30 09/06/23 03/23/24 tablet tabs magnesium gluconate 27 mg 13.5 mg (1/2 x 27 mg magnesium 11/21/23 03/23/24 magnesium (500 mg) tablet (500 mg)) PO TID #60 tabs cyclobenzaprine 10 mg tablet 10 mg PO TID PRN muscle spasm #30 12/04/23 03/23/24 tabs benzonatate 100 mg capsule 100 mg PO TID PRN 02/25/24 03/23/24 ondansetron 4 mg disintegrating 4 mg PO Q8H PRN 02/25/24 03/23/24 tablet calcitriol 0.5 mcg capsule 1 mcg (2 x 0.5 mcg) PO BID #180 03/12/24 03/23/24 caps clonazepam 1 mg tablet 1 mg PO BID #56 tabs 03/12/24 03/23/24 fluoxetine 20 mg capsule 20 mg PO DAILY #60 caps 03/12/24 03/23/24 simethicone 125 mg chewable tablet 125 mg PO QID PRN abdominal 03/12/24 03/23/24 distention #20 tabs prednisone 20 mg tablet 40 mg PO DAILY 03/19/24 03/23/24 Previous Rx's ?Medication ?Instructions ?Recorded gabapentin 300 mg capsule 300 mg PO BID #180 caps 06/23/23 omeprazole 40 mg capsule,delayed 40 mg PO DAILY #90 caps 07/21/23 release prochlorperazine maleate 5 mg 5 mg PO TID PRN acute nausea #30 09/06/23 tablet tabs magnesium gluconate 27 mg 13.5 mg (1/2 x 27 mg magnesium 11/21/23 magnesium (500 mg) tablet (500 mg)) PO TID #60 tabs cyclobenzaprine 10 mg tablet 10 mg PO TID PRN muscle spasm #30 12/04/23 tabs calcitriol 0.5 mcg capsule 1 mcg (2 x 0.5 mcg) PO BID #180 03/12/24 caps clonazepam 1 mg tablet 1 mg PO BID #56 tabs 03/12/24 fluoxetine 20 mg capsule 20 mg PO DAILY #60 caps 03/12/24 simethicone 125 mg chewable tablet 125 mg PO QID PRN abdominal 03/12/24 distention #20 tabs Allergies Allergy/AdvReac Type Severity Reaction Status Date / Time codeine Allergy Intermediate pass out Verified 03/23/24 04:03 Penicillins Allergy Skin Rash Verified 03/23/24 04:03 amoxicillin AdvReac Intermediate Nausea Verified 03/23/24 04:03 dextromethorphan (From AdvReac Intermediate Other (See Verified 03/23/24 04:03 NyQuil) Comment) doxylamine (From NyQuil) AdvReac Intermediate Other (See Verified 03/23/24 04:03 Comment) pseudoephedrine (From NyQuil) AdvReac Intermediate Other (See Verified 03/23/24 04:03 Comment) General Stated Complaint: GenMedical ADRIANA: 4 Review of Systems All systems reviewed & are unremarkable except as noted in HPI and below Exam Narrative Exam Narrative: 1.Const: Well-nourished, Well-developed, appearing stated age 2.Eyes: PERRL, no conjunctival injection, and symmetrical lids. 3.ENT: Atraumatic external nose and ears. Moist MM. Neck: Symmetric, trachea midline, No thyromegaly. 4.CVS: +S1/S2, No murmurs or gallops. Peripheral pulses 2+ and equal in all extremities. Brisk capillary refill in all extremities. 5.RESP: Unlabored respiratory effort. Clear to auscultation bilaterally. No wheezes rales or rhonchi 6.GI: Soft, Nontender/Nondistended, No hepatosplenomegaly. No guarding or kulwinder ound. 7.MSK: Normocephalic/Atraumatic, Extremities w/o deformity or ttp No cyanosis or clubbing, Normal movement of all extremities, negative chvostic and Trousseau sign. 8.Skin: Warm, Dry. No rashes or lesions. 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 Sensation grossly intact, no focal neurologic deficits. 10.Psych: (AAO) x3. Appropriate mood and affect Course Vital Signs Vital signs: Vital Signs Temperature 36.2 C L 03/23/24 04:01 Pulse 98 H 03/23/24 04:01 Respiratory Rate 16 03/23/24 04:01 Blood Pressure 132/81 03/23/24 04:01 Pulse Oximetry 98 03/23/24 04:01 Temperature 36.2 C L 03/23/24 04:01 Temperature Source Temporal Artery Scan 03/23/24 04:01 Pulse 98 H 03/23/24 04:01 Respiratory Rate 16 03/23/24 04:10 Respiratory Effort Normal, Non-Labored 03/23/24 04:10 Respiratory Depth Normal 03/23/24 04:10 Respiratory Pattern Normal 03/23/24 04:10 Blood Pressure 132/81 03/23/24 04:01 Blood Pressure Position Supine 03/23/24 04:01 Pulse Oximetry 98 03/23/24 04:01 Oxygen Delivery Method Room Air 03/23/24 04:01 Oxygen Flow Rate 0 03/23/24 04:01 Medical Decision Making This is a 28-year-old male with a past medical history significant for anxiety, depression, high cholesterol, men type I, multiple electrolyte abnormalities with [place] [facility] [place], G[place]D, who presents today for suspicion of low calcium. Patient states that over the last day or so he has noticed some increased facial flushing, he has been taking extra Tums because of this. 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 He denies any tetany, he denies any headache or chest pain or shortness of breath. No other complaints. He states he has been taking his medications as directed otherwise. Exam demonstrates a well-appearing male, stable vital signs, negative chvoistic and Trousseau sign. No hemodynamic instability. We will get basic blood work to check his calcium status, give oral rehydration, monitor closely and reassess. 5:26 AM Laboratory workup shows stable electrolytes aside for slightly low calcium at 8.2. Patient otherwise stable. Patient was given 2 g of Tums and 4.5 mEq of IV calcium. Patient tolerated this well. Symptoms stable. Patient stable for discharge. Discussed red flags for which to return. I have extensively reviewed the treatment plan and discharge instructions with the patient. I have addressed all patient concerns at this time. The patient was made aware of what symptoms to monitor for that would warrant a return to the emergency department. Discussed the plan with the patient, they demonstrate verbal understanding and agreement with our assessment and plan at this time. The documentation in this chart was dictated using [employer]raVid dictation software. Please excuse any dictation errors. Quality:SDOH Health Related Social Needs: Health related social needs transpo insecurity PFSH All Active Problems (Updated 03/23/24 @ 05:25 by Richy Eagle DO) Hypocalcemia (Acute) Facial flushing (Acute) Hypokalemia (Acute) Hypocalcemia (Acute) Hypomagnesemia (Acute) Anxiety (Chronic) Muscle spasm (Acute) Anxiety (Chronic) Pain of right calf (Acute) Hypomagnesemia (Acute) Hypocalcemia (Acute) Obesity (Chronic) Migraine with aura (Acute) Insect bite of leg, right (Acute) Testicle lump (Acute) Hamstring tendinitis of left thigh (Acute) Pes anserine bursitis (Acute) Hypernatremia (Acute) Cervical radiculopathy (Acute) Left-sided Flower's palsy (Acute) Constipation (Acute) Grief reaction (Chronic) Opiate dependence, continuous (Acute) 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 Possible 2' Methadone, Clnzpm (?). Surg eval (+)/No further action. History of electrolyte imbalance (Acute) Neck pain on left side (Acute) with shoulder, upper back pain.. torticollis, radiating into left hip/leg Pulmonary nodule 1 cm or greater in diameter (Chronic) Therapeutic opioid induced constipation (Acute) Sphincter of Oddi dysfunction (Chronic) Abnormal CT scan, kidney (Acute) Intrahepatic bile duct dilation (Acute) Common bile duct dilatation (Chronic) Has been dilated for quite some time, now more-so. Normal LFTs. Known gallstones. Iatrogenic hypocalcemia (Acute) Multiple endocrine neoplasia type I (Chronic) Depression (Chronic) Hypocalcemia (Chronic) Elevated parathyroid hormone (Acute) Family history of coronary arteriosclerosis (Chronic) Father of [place] at 50, mother had [place] at 42 Severe anxiety with panic (Chronic) Medical History Urinary tract infection CKD (chronic kidney disease) stage 2, GFR 60-89 ml/min GFR 64-65, with Hx FLORESITA and GFR < 45 Primary hyperparathyroidism Complex medical condition Serious electrolyte imbalances, with gynecomastia, possible MEN Dx, CKD and anemia with baseline anxiety and Hx PTSD. Hypocalcemia Anxiety Depression Hyperlipidemia Family history of multiple endocrine neoplasia, type 1 PTSD (post-traumatic stress disorder) Per pt. states no triggers at this time. Surgical History History of laparoscopic cholecystectomy (~11/2023) H/O parathyroidectomy Family History Mother Anxiety Asthma Depression Sister Anxiety Depression Father Cancer lung & stomach Depression Diabetes Hypertension MEN 1 (multiple endocrine neoplasia) Social History Smoking/Tobacco Use Status: Never Smoking risk assessment performed?: Yes Alcohol Intake: never Drug use: Current Sobriety Substance use type: former substance user Adopted: No Caregiver/Support person: No Foster care: No Household members: none Housing: apartment Number of Children: 0 Communication Needs: None Education Level: high school Do you need help understanding health information?: Never 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 [employer] Pets and animals: Yes (Ally) Pets and animals: dog(s) Sexually active: No Do you think of yourself as: straight/heterosexual Current gender identity: male What is your relationship status?: How often do you talk on the phone with friends or family?: twice per week How often do you get together with friends or relatives?: never Do you belong to any clubs or organized social groups?: no Panel score (0-1 are the most socially isolated patients): 0 What type of physical activity do you participate in: walking Duration: 15-30 minutes/day Frequency: 5-6 times per week Maryam/Orthodox: Orthodoxy Special maryam needs: No Seatbelt use: always Helmet use: Yes Helmet use: always 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
[2024-03-23 04:41] LABS: ALT 27 U/L (16-63); AST 21 U/L (15-37); Albumin 2.8 g/dL (3.4-5.0); Alkaline Phosphatase 203 U/L (46-116); Anion Gap 7.4 mmol/L (3-11); BUN 9 mg/dL (7-18); Bilirubin, Total 0.21 mg/dL (0.2-1.0); CO2 32.6 mmol/L (21.0-32.0); CREATININE 1.3 mg/dL (0.70-1.30); Calcium 8.2 mg/dL (8.5-10.1); Chloride 102 mmol/L (98-107); Estimated GFR 75.79 (mL/min/1.73m2); Glucose 92 mg/dL (74-106); Potassium 3.8 mmol/L (3.5-5.1); Sodium 142 mmol/L (136-145); Total Protein 7.2 g/dL (6.4-8.2)
[2024-03-23] MEDS: Calcium Carbonate *TUMS* 500 MG CHEW 1000 MG PO (05:00)
[2024-03-23] MEDS: Calcium Gluconate 4.65 MEQ/10 ML VIAL 4.65 MG IVP (05:02)
[2024-03-23] MEDS: Normal Saline 50 ML 100 ML (05:15)
== END 2024-03-23 05:34 | disposition home or self-care (01) ==
PROVIDERS: Emergency Provider Student in an Organized Health Care Education/Training Program; PCP Family Medicine
DX: E83.51 Hypocalcemia (principal); E89.2 Postprocedural hypoparathyroidism; E78.00 Pure hypercholesterolemia, unspecified; E31.21 Multiple endocrine neoplasia [MEN] type I
CPT/HCPCS: 36415; 80053; 96374; 99283; J0612

== ENCOUNTER 2024-03-29 07:10 | Emergency (ER) | payer OTHER, SELFPAY ==
[2024-03-29] VITALS (18 sets, daily range): BP systolic 113–147; BP diastolic 59–88; PULSE 78–118; RESP 11–19; TEMP 37.4; O2SAT 91–96
--- NOTE | 2024-03-29 07:15 | RT.EKG_ITS ---
APPROVED REPORT Exam: Resting ECG Reason for Exam: Low Calcium Patient Location: E HR:118 bpm ECG Measurements Heart Rate 118 AXIS GA 168 P 41 QRSd 93 QRS 47 QT 324 T 21 QTc 455 Conclusion Sinus tachycardia. 118 normal intervals no stemi
--- NOTE | 2024-03-29 07:57 | W.ED.GENAD ---
Discharge Plan Disposition Patient Disposition: Home Condition: Good Discharge Details Clinical Impression: Palpitations Primary Care Provider: Brendon Vivar ED Provider: Jeovany Elias Home Meds and New Rx's Prescriptions: No Action gabapentin 300 mg capsule 300 mg PO BID Qty: 180 3RF cyclobenzaprine 10 mg tablet 10 mg PO TID PRN (Reason: muscle spasm) Qty: 30 3RF methadone 10 mg/5 mL solution 100 mg PO QAM polyethylene glycol 3350 17 gram/dose powder 17 g PO DAILY PRN omeprazole 40 mg capsule,delayed release(DR/EC) 40 mg PO DAILY Qty: 90 3RF calcitriol 0.5 mcg capsule 1 mcg PO BID Qty: 180 3RF clonazepam 1 mg tablet 1 mg PO BID Qty: 56 0RF simethicone 125 mg tablet,chewable 125 mg PO QID PRN (Reason: abdominal distention) Qty: 20 3RF fluoxetine 20 mg capsule 20 mg PO DAILY Qty: 60 0RF calcium carbonate [Tums] 200 mg calcium (500 mg) tablet,chewable 2,000 mg PO BID prochlorperazine maleate 5 mg tablet 5 mg PO TID PRN (Reason: acute nausea) Qty: 30 0RF magnesium gluconate 27 mg magnesium (500 mg) tablet 13.5 mg PO TID Qty: 60 3RF ondansetron 4 mg tablet,disintegrating 4 mg PO Q8H PRN Patient Comments: DISSOLVE ONE TABLET ON THE TONGUE EVERY 6 HOURS NEEDED FOR NAUSEA AND VOMITING benzonatate 100 mg capsule 100 mg PO TID PRN Patient Comments: TAKE ONE CAPSULE BY MOUTH EVERY 8 HOURS NEEDED FOR COUGH prednisone 20 mg tablet 40 mg PO DAILY Patient Comments: TAKE TWO TABLETS BY MOUTH EVERY DAY FOR 4 DAYS Discharge Instructions Additional Instructions: Calcium and magnesium levels are within normal limits today Please continue your increased dose of magnesium for this week and follow-up with your primary care provider for recheck of your levels next week. HPI General Date/Time Provider Initiated Documentation: 03/29/24 07:32. Limitations to Documentation: no limitations. Information obtained by: patient and old records reviewed. HPI Narrative: 28-year-old gentleman with past medical history of electrolyte derangement and, thyroid dysfunction presents for evaluation of palpitations. He reports that he knows his magnesium level is low because the last 2 days he has been having palpitations and his heart. He reports some mild cramping in his toes. He states that he has been doubling his dose of magnesium at home and taking 1500 mg in the morning and 1000 mg in the evening. He reports that he has been eating and drinking normally otherwise. Denies any fever or chills. Related Data Home Medications ?Medication ?Instructions ?Recorded ?Confirmed calcium carbonate (Tums) 2,000 mg PO BID 02/02/23 03/29/24 methadone 10 mg/5 mL oral solution 100 mg PO QAM 06/12/23 03/29/24 polyethylene glycol 3350 17 17 g PO DAILY PRN 06/12/23 03/29/24 gram/dose oral powder gabapentin 300 mg capsule 300 mg PO BID #180 caps 06/23/23 03/29/24 omeprazole 40 mg capsule,delayed 40 mg PO DAILY #90 caps 07/21/23 03/29/24 release prochlorperazine maleate 5 mg 5 mg PO TID PRN acute nausea #30 09/06/23 03/29/24 tablet tabs magnesium gluconate 27 mg 13.5 mg (1/2 x 27 mg magnesium 11/21/23 03/29/24 magnesium (500 mg) tablet (500 mg)) PO TID #60 tabs cyclobenzaprine 10 mg tablet 10 mg PO TID PRN muscle spasm #30 12/04/23 03/29/24 tabs benzonatate 100 mg capsule 100 mg PO TID PRN 02/25/24 03/29/24 ondansetron 4 mg disintegrating 4 mg PO Q8H PRN 02/25/24 03/29/24 tablet calcitriol 0.5 mcg capsule 1 mcg (2 x 0.5 mcg) PO BID #180 03/12/24 03/29/24 caps clonazepam 1 mg tablet 1 mg PO BID #56 tabs 03/12/24 03/29/24 fluoxetine 20 mg capsule 20 mg PO DAILY #60 caps 03/12/24 03/29/24 simethicone 125 mg chewable tablet 125 mg PO QID PRN abdominal 03/12/24 03/29/24 distention #20 tabs prednisone 20 mg tablet 40 mg PO DAILY 03/19/24 03/29/24 Previous Rx's ?Medication ?Instructions ?Recorded gabapentin 300 mg capsule 300 mg PO BID #180 caps 06/23/23 omeprazole 40 mg capsule,delayed 40 mg PO DAILY #90 caps 07/21/23 release prochlorperazine maleate 5 mg 5 mg PO TID PRN acute nausea #30 09/06/23 tablet tabs magnesium gluconate 27 mg 13.5 mg (1/2 x 27 mg magnesium 11/21/23 magnesium (500 mg) tablet (500 mg)) PO TID #60 tabs cyclobenzaprine 10 mg tablet 10 mg PO TID PRN muscle spasm #30 12/04/23 tabs calcitriol 0.5 mcg capsule 1 mcg (2 x 0.5 mcg) PO BID #180 03/12/24 caps clonazepam 1 mg tablet 1 mg PO BID #56 tabs 03/12/24 fluoxetine 20 mg capsule 20 mg PO DAILY #60 caps 03/12/24 simethicone 125 mg chewable tablet 125 mg PO QID PRN abdominal 03/12/24 distention #20 tabs Allergies Allergy/AdvReac Type Severity Reaction Status Date / Time codeine Allergy Intermediate pass out Verified 03/29/24 07:23 Penicillins Allergy Skin Rash Verified 03/29/24 07:23 amoxicillin AdvReac Intermediate Nausea Verified 03/29/24 07:23 dextromethorphan (From AdvReac Intermediate Other (See Verified 03/29/24 07:23 NyQuil) Comment) doxylamine (From NyQuil) AdvReac Intermediate Other (See Verified 03/29/24 07:23 Comment) pseudoephedrine (From NyQuil) AdvReac Intermediate Other (See Verified 03/29/24 07:23 Comment) General Stated Complaint: Palpitatns ADRIANA: 3 Exam Narrative Exam Narrative: Review of Systems: All systems reviewed & are unremarkable except as noted in HPI and below Well-developed, no acute distress NCAT PERRL, normal conjunctiva Mild tachycardia, no dysrhythmia Unlabored respiratory effort clear bilaterally Course Vital Signs Vital signs: Vital Signs Temperature 37.4 C 03/29/24 07:18 Pulse 118 H 03/29/24 07:18 Respiratory Rate 18 03/29/24 07:18 Blood Pressure 147/76 H 03/29/24 07:18 Pulse Oximetry 96 03/29/24 07:18 Temperature 37.4 C 03/29/24 07:18 Temperature Source Oral 03/29/24 07:18 Pulse 110 H 03/29/24 07:31 Pulse 112 H 03/29/24 07:31 Respiratory Rate 13 03/29/24 07:31 Respiratory Effort Normal, Non-Labored 03/29/24 07:23 Blood Pressure 136/85 03/29/24 07:31 Blood Pressure Mean 98 03/29/24 07:31 Blood Pressure Position Supine 03/29/24 07:18 Pulse Oximetry 92 03/29/24 07:31 Oxygen Delivery Method Room Air 03/29/24 07:18 Oxygen Flow Rate 0 03/29/24 07:18 Pain Level 3 03/29/24 07:24 Medical Decision Making Emergent evaluation of palpitations. Patient is well-known to the department and visits frequently. He often has lab work checked. Is noted to be tachycardic which is consistent with all prior visits. EKG reviewed and independently interpreted: Sinus tachycardia 118, no dysrhythmia, no STEMI. He is taking fairly high doses of magnesium at home daily. Will check lab work to evaluate for potential electrolyte derangement. 0900 Calcium and magnesium are within normal limits. The magnesium is at the lower end of normal but much higher than usual for the patient. I do recommend that he continue his twice daily dosing of the magnesium and follow-up with his PCP in 1 week for retesting of that lab work. Quality:SDOH Health Related Social Needs: Health related social needs transportation insecurity(Z59.82) [facility] All Active Problems (Updated 03/29/24 @ 08:37 by Jeovany Elias MD) Palpitations (Acute) Hypocalcemia (Acute) Facial flushing (Acute) Hypokalemia (Acute) Hypocalcemia (Acute) Hypomagnesemia (Acute) Anxiety (Chronic) Muscle spasm (Acute) Pain of right calf (Acute) Obesity (Chronic) Migraine with aura (Acute) Insect bite of leg, right (Acute) Testicle lump (Acute) Hamstring tendinitis of left thigh (Acute) Pes anserine bursitis (Acute) Hypernatremia (Acute) Cervical radiculopathy (Acute) Left-sided Flower's palsy (Acute) Constipation (Acute) Grief reaction (Chronic) Opiate dependence, continuous (Acute) 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 Possible 2' Methadone, Clnzpm (?). Surg eval (+)/No further action. History of electrolyte imbalance (Acute) Neck pain on left side (Acute) with shoulder, upper back pain.. torticollis, radiating into left hip/leg Pulmonary nodule 1 cm or greater in diameter (Chronic) Therapeutic opioid induced constipation (Acute) Sphincter of Oddi dysfunction (Chronic) Abnormal CT scan, kidney (Acute) Intrahepatic bile duct dilation (Acute) Common bile duct dilatation (Chronic) Has been dilated for quite some time, now more-so. Normal LFTs. Known gallstones. Iatrogenic hypocalcemia (Acute) Multiple endocrine neoplasia type I (Chronic) Depression (Chronic) Hypocalcemia (Chronic) Elevated parathyroid hormone (Acute) Family history of coronary arteriosclerosis (Chronic) Father of MT at 50, mother had MT at 42 Severe anxiety with panic (Chronic) Medical History Urinary tract infection CKD (chronic kidney disease) stage 2, GFR 60-89 ml/min GFR 64-65, with Hx FLORESITA and GFR < 45 Primary hyperparathyroidism Complex medical condition Serious electrolyte imbalances, with gynecomastia, possible MEN Dx, CKD and anemia with baseline anxiety and Hx PTSD. Hypocalcemia Anxiety Depression Hyperlipidemia Family history of multiple endocrine neoplasia, type 1 PTSD (post-traumatic stress disorder) Per pt. states no triggers at this time. Surgical History History of laparoscopic cholecystectomy (~11/2023) H/O parathyroidectomy Family History Mother Anxiety Asthma Depression Sister Anxiety Depression Father Cancer lung & stomach Depression Diabetes Hypertension MEN 1 (multiple endocrine neoplasia) Social History Smoking/Tobacco Use Status: Never Smoking risk assessment performed?: Yes Alcohol Intake: never Drug use: Current Sobriety Substance use type: former substance user Adopted: No Caregiver/Support person: No Foster care: No Household members: none Housing: apartment Number of Children: 0 Communication Needs: None Education Level: high school Do you need help understanding health information?: Never 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[employer] Pets and animals: Yes (Ally) Pets and animals: dog(s) Sexually active: No Do you think of yourself as: straight/heterosexual Current gender identity: male What is your relationship status?: How often do you talk on the phone with friends or family?: twice per week How often do you get together with friends or relatives?: never Do you belong to any clubs or organized social groups?: no Panel score (0-1 are the most socially isolated patients): 0 What type of physical activity do you participate in: walking Duration: 15-30 minutes/day Frequency: 5-6 times per week Maryam/Quaker: Spiritism Special maryam needs: No Seatbelt use: always Helmet use: Yes Helmet use: always Drive intox or ride w/intox local flatbed 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
[2024-03-29 08:12] LABS: Anion Gap 8.3 mmol/L (3-11); BUN 15 mg/dL (7-18); CO2 30.7 mmol/L (21.0-32.0); CREATININE 1.3 mg/dL (0.70-1.30); Calcium 9.4 mg/dL (8.5-10.1); Chloride 103 mmol/L (98-107); Estimated GFR 75.79 (mL/min/1.73m2); Glucose 119 mg/dL (74-106); Magnesium 1.8 mg/dL (1.8-2.4); Potassium 3.8 mmol/L (3.5-5.1); Sodium 142 mmol/L (136-145)
== END 2024-03-29 08:55 | disposition home or self-care (01) ==
PROVIDERS: Emergency Provider Emergency Medicine; PCP Family Medicine
DX: R00.2 Palpitations (principal); R00.0 Tachycardia, unspecified; N18.2 Chronic kidney disease, stage 2 (mild); E89.2 Postprocedural hypoparathyroidism; E78.5 Hyperlipidemia, unspecified
CPT/HCPCS: 80048; 93005; 99284; 83735; 93010; 99283

== ENCOUNTER 2024-04-04 11:49 | Emergency (ER) | payer OTHER, SELFPAY ==
[2024-04-04] VITALS (18 sets, daily range): BP systolic 108–121; BP diastolic 72–75; PULSE 71–130; RESP 10–28; TEMP 36.7; O2SAT 91–98
--- NOTE | 2024-04-04 12:00 | RT.EKG_ITS ---
APPROVED REPORT Exam: Resting ECG Reason for Exam: Eval QTc Patient Location: E HR:94 bpm ECG Measurements Heart Rate 94 AXIS MT 169 P 33 QRSd 95 QRS 45 QT 376 T 19 QTc 470 Conclusion Sinus rhythm rate 94 No interval abnormalities No STEMI
--- NOTE | 2024-04-04 12:18 | ED.GENADUL_ITS ---
Discharge Plan Disposition Patient Disposition: Home Condition: Stable Discharge Details Clinical Impression: Nausea and vomiting, Hypomagnesemia, Hypocalcemia, Hypokalemia, Multiple endocrine neoplasia type I, Sphincter of Oddi dysfunction Primary Care Provider: Brendon Vivar ED Provider: Tere Adams Home Meds and New Rx's Prescriptions: No Action gabapentin 300 mg capsule 300 mg PO BID Qty: 180 3RF cyclobenzaprine 10 mg tablet 10 mg PO TID PRN (Reason: muscle spasm) Qty: 30 3RF methadone 10 mg/5 mL solution 100 mg PO QAM polyethylene glycol 3350 17 gram/dose powder 17 g PO DAILY PRN omeprazole 40 mg capsule,delayed release(DR/EC) 40 mg PO DAILY Qty: 90 3RF calcitriol 0.5 mcg capsule 1 mcg PO BID Qty: 180 3RF clonazepam 1 mg tablet 1 mg PO BID Qty: 56 0RF simethicone 125 mg tablet,chewable 125 mg PO QID PRN (Reason: abdominal distention) Qty: 20 3RF fluoxetine 20 mg capsule 20 mg PO DAILY Qty: 60 0RF calcium carbonate [Tums] 200 mg calcium (500 mg) tablet,chewable 2,000 mg PO BID prochlorperazine maleate 5 mg tablet 5 mg PO TID PRN (Reason: acute nausea) Qty: 30 0RF magnesium gluconate 27 mg magnesium (500 mg) tablet 13.5 mg PO TID Qty: 60 3RF ondansetron 4 mg tablet,disintegrating 4 mg PO Q8H PRN Patient Comments: DISSOLVE ONE TABLET ON THE TONGUE EVERY 6 HOURS NEEDED FOR NAUSEA AND VOMITING benzonatate 100 mg capsule 100 mg PO TID PRN Patient Comments: TAKE ONE CAPSULE BY MOUTH EVERY 8 HOURS NEEDED FOR COUGH Discharge Instructions Instructions: Nausea and Vomiting, Adult ED Additional Instructions: You were seen in the emergency department today for evaluation of nausea with vomiting. In our department had a full physical examination performed, received medications for management as well as fluids, and had laboratory studies that were largely reassuring. Your electrolytes are fairly close to normal for you, though we did provide you with potassium supplementation. Most potassium is obtained through your diet, and you can prioritize potassium rich foods such as bananas and potatoes. Please maintain good hydration and follow-up with your provider at your scheduled appointment. Thank you for allowing us to be part of your care. HPI General Mode of arrival: ambulatory . Date/Time Provider Initiated Documentation: 04/04/24 11:50 . Limitations to Documentation: no limitations . Information obtained by: patient and old records reviewed . HPI Narrative: HPI: This is a 28-year-old male patient with a past medical history significant for MEN1, sphincter of Oddi dysfunction, hypocalcemia, who is presenting for evaluation of nausea with vomiting. The patient reports that he has been sick since Friday, and is worried that his vomiting and dehydration has caused more electrolyte shifts. He states that he has not had any recent antibiotic use, travel, or exposure to sick contacts. States that he has had soft stools but no liquid diarrhea. He has had difficulty maintaining his oral intake. The patient reports that he has had some generalized abdominal tenderness, denies chest or back pain, denies dysuria. However changes from his baseline health. Exam: Gen: Awake and alert, in no apparent distress HEENT: Non-icteric sclera Neck: Supple Lungs: No apparent respiratory distress, normal respiratory effort. Lung sounds clear and equal bilaterally CV: Appears well perfused, heart with regular rate and rhythm Abdomen: Non-distended, soft, mild tenderness to palpation in the epigastric and periumbilical region without rigidity, rebound, guarding MSK: Moves 4 extremities without apparent limitation in ROM Skin: Visualized skin without rashes, cyanosis. Neuro: Normal Gait, no obvious focal deficits or facial asymmetry. Speaks in full, clear sentences. Psych: Appropriate for situation. MDM: This is a 28-year-old male patient presenting for evaluation of nausea vomiting and abdominal pain. Differential includes but is not limited to gastritis, pancreatitis, hepatitis. I considered electrolyte derangements and dehydration, kidney injury. The patient has had a brief duration of symptoms and has a benign abdominal examination, and I am less concerned for severe etiologies of abdominal pain and nausea such as bowel obstruction, mesenteric ischemia, appendicitis, diverticulitis. We will obtain laboratory studies to include CBC, CMP, magnesium, and lipase. I will provide the patient with a dose of Tigan given his history of QTc prolongation and use of methadone. I will provide him with a liter of IV fluids. At this time I do not see an indication to proceed with advanced imaging, but we will certainly reassess after meds and labs and monitor for change. ED Course: I reviewed the patient laboratory studies, which show no leukocytosis, no anemia or thrombocytopenia. Electrolyte derangements noted include very mild hypokalemia, hypomagnesemia, and hypocalcemia, for which I provided him with potassium supplementation but he did not require any ad ditional IV supplementation. On reassessment the patient reports that he is feeling significantly improved, tolerated oral fluids, and has Zofran at home which he can use to continue to manage his nausea as needed. His abdominal examination remains benign. He has a primary care follow-up on Friday where he will have laboratory studies rechecked to ensure that his metabolic derangements are improving. At this time, the patient has had a full medical evaluation and is safe for discharge to home. They are hemodynamically stable, ambulatory, and tolerating PO. They are understanding of the follow-up plan and return precautions. They left our facility without incident. Tere Adams MD Related Data Home Medications ?Medication ?Instructions ?Recorded ?Confirmed calcium carbonate (Tums) 2,000 mg PO BID 02/02/23 04/04/24 methadone 10 mg/5 mL oral solution 100 mg PO QAM 06/12/23 04/04/24 polyethylene glycol 3350 17 17 g PO DAILY PRN 06/12/23 04/04/24 gram/dose oral powder gabapentin 300 mg capsule 300 mg PO BID #180 caps 06/23/23 04/04/24 omeprazole 40 mg capsule,delayed 40 mg PO DAILY #90 caps 07/21/23 04/04/24 release prochlorperazine maleate 5 mg 5 mg PO TID PRN acute nausea #30 09/06/23 04/04/24 tablet tabs magnesium gluconate 27 mg 13.5 mg (1/2 x 27 mg magnesium 11/21/23 04/04/24 magnesium (500 mg) tablet (500 mg)) PO TID #60 tabs cyclobenzaprine 10 mg tablet 10 mg PO TID PRN muscle spasm #30 12/04/23 04/04/24 tabs benzonatate 100 mg capsule 100 mg PO TID PRN 02/25/24 04/04/24 ondansetron 4 mg disintegrating 4 mg PO Q8H PRN 02/25/24 04/04/24 tablet calcitriol 0.5 mcg capsule 1 mcg (2 x 0.5 mcg) PO BID #180 03/12/24 04/04/24 caps clonazepam 1 mg tablet 1 mg PO BID #56 tabs 03/12/24 04/04/24 fluoxetine 20 mg capsule 20 mg PO DAILY #60 caps 03/12/24 04/04/24 simethicone 125 mg chewable tablet 125 mg PO QID PRN abdominal 03/12/24 04/04/24 distention #20 tabs Previous Rx's ?Medication ?Instructions ?Recorded gabapentin 300 mg capsule 300 mg PO BID #180 caps 06/23/23 omeprazole 40 mg capsule,delayed 40 mg PO DAILY #90 caps 07/21/23 release prochlorperazine maleate 5 mg 5 mg PO TID PRN acute nausea #30 09/06/23 tablet tabs magnesium gluconate 27 mg 13.5 mg (1/2 x 27 mg magnesium 11/21/23 magnesium (500 mg) tablet (500 mg)) PO TID #60 tabs cyclobenzaprine 10 mg tablet 10 mg PO TID PRN muscle spasm #30 12/04/23 tabs calcitriol 0.5 mcg capsule 1 mcg (2 x 0.5 mcg) PO BID #180 03/12/24 caps clonazepam 1 mg tablet 1 mg PO BID #56 tabs 03/12/24 fluoxetine 20 mg capsule 20 mg PO DAILY #60 caps 03/12/24 simethicone 125 mg chewable tablet 125 mg PO QID PRN abdominal 03/12/24 distention #20 tabs Allergies Allergy/AdvReac Type Severity Reaction Status Date / Time codeine Allergy Intermediate pass out Verified 04/04/24 11:59 Penicillins Allergy Skin Rash Verified 03/29/24 07:23 amoxicillin AdvReac Intermediate Nausea Verified 04/04/24 11:59 dextromethorphan (From AdvReac Intermediate Other (See Verified 04/04/24 11:59 NyQuil) Comment) doxylamine (From NyQuil) AdvReac Intermediate Other (See Verified 04/04/24 11:59 Comment) pseudoephedrine (From NyQuil) AdvReac Intermediate Other (See Verified 04/04/24 11:59 Comment) General Stated Complaint: Nausea/Vomit/Diar ADRIANA: 3 Course Vital Signs Vital signs: Vital Signs Temperature 36.7 C 04/04/24 11:57 Pulse 130 H 04/04/24 11:57 Respiratory Rate 14 04/04/24 11:57 Blood Pressure 121/75 04/04/24 11:57 Pulse Oximetry 96 04/04/24 11:57 Temperature 36.7 C 04/04/24 11:57 Temperature Source Oral 04/04/24 11:57 Pulse 130 H 04/04/24 11:57 Respiratory Rate 14 04/04/24 11:57 Respiratory Effort Normal 04/04/24 12:11 Blood Pressure 121/75 04/04/24 11:57 Blood Pressure Position Sitting 04/04/24 11:57 Pulse Oximetry 96 04/04/24 11:57 Oxygen Delivery Method Room Air 04/04/24 11:57 Oxygen Flow Rate 0 04/04/24 11:57 Pain Level 0 04/04/24 11:57 Medical Decision Making Quality:SDOH Health Related Social Needs: Health related social needs transportation insecurity( Z59.82) [facility] All Active Problems (Updated 04/04/24 @ 14:21 by Tere Adams MD) Hypokalemia (Acute) Nausea and vomiting (Acute) Palpitations (Acute) Hypocalcemia (Acute) Facial flushing (Acute) Hypokalemia (Acute) Hypocalcemia (Acute) Hypomagnesemia (Acute) Anxiety (Chronic) Pain of right calf (Acute) Obesity (Chronic) Migraine with aura (Acute) Insect bite of leg, right (Acute) Testicle lump (Acute) Hamstring tendinitis of left thigh (Acute) Pes anserine bursitis (Acute) Hypernatremia (Acute) Cervical radiculopathy (Acute) Left-sided Flower's palsy (Acute) Constipation (Acute) Grief reaction (Chronic) Opiate dependence, continuous (Acute) 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 Possible 2' Methadone, Clnzpm (?). Surg eval (+)/No further action. History of electrolyte imbalance (Acute) Neck pain on left side (Acute) with shoulder, upper back pain.. torticollis, radiating into left hip/leg Pulmonary nodule 1 cm or greater in diameter (Chronic) Therapeutic opioid induced constipation (Acute) Sphincter of Oddi dysfunction (Chronic) Abnormal CT scan, kidney (Acute) Intrahepatic bile duct dilation (Acute) Common bile duct dilatation (Chronic) Has been dilated for quite some time, now more-so. Normal LFTs. Known gallstones. Iatrogenic hypocalcemia (Acute) Multiple endocrine neoplasia type I (Chronic) Depression (Chronic) Hypocalcemia (Chronic) Elevated parathyroid hormone (Acute) Family history of coronary arteriosclerosis (Chronic) Father of [place] at 50, mother had [place] at 42 Severe anxiety with panic (Chronic) Medical History Urinary tract infection CKD (chronic kidney disease) stage 2, GFR 60-89 ml/min GFR 64-65, with Hx FLORESITA and GFR < 45 Primary hyperparathyroidism Complex medical condition Serious electrolyte imbalances, with gynecomastia, possible MEN Dx, CKD and anemia with baseline anxiety and Hx PTSD. Hypocalcemia Anxiety Depression Hyperlipidemia Family history of multiple endocrine neoplasia, type 1 PTSD (post-traumatic stress disorder) Per pt. states no triggers at this time. Surgical History History of laparoscopic cholecystectomy (~11/2023) H/O parathyroidectomy Family History Mother Anxiety Asthma Depression Sister Anxiety Depression Father Cancer lung & stomach Depression Diabetes Hypertension MEN 1 (multiple endocrine neoplasia) Social History Smoking/Tobacco Use Status: Never Smoking risk assessment performed?: Yes Alcohol Intake: never Drug use: Current Sobriety Substance use type: former substance user Adopted: No Caregiver/Support person: No Foster care: No Household members: none Housing: apartment Number of Children: 0 Communication Needs: None Education Level: high school Do you need help understanding health information?: Never 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[employer] Pets and animals: Yes (Ally) Pets and animals: dog(s) Sexually active: No Do you think of yourself as: straight/heterosexual Current gender identity: male What is your relationship status?: How often do you talk on the phone with friends or family?: twice per week How often do you get together with friends or relatives?: never Do you belong to any clubs or organized social groups?: no Panel score (0-1 are the most socially isolated patients): 0 What type of physical activity do you participate in: walking Duration: 15-30 minutes/day Frequency: 5-6 times per week Maryam/Mu-Ism: Yarsanism Special maryam needs: No Seatbelt use: always Helmet use: Yes Helmet use: always Drive intox or ride w/intox tour bus driver/guide: No Do you feel safe at home: Yes Do you feel safe in your relationship?: Yes
[2024-04-04 12:22] LABS: Abs Immature Grans 0.04 10^3/uL (0.0-0.06); Absolute Basophil Count 0.03 10^3/uL (0.0-0.2); Absolute Eosinophil Count 0.17 10^3/uL (0.0-0.7); Absolute Lymphocyte Count 2.04 10^3/uL (1.2-3.4); Absolute Monocyte Count 0.79 10^3/uL (0.1-0.8); Absolute Neutrophil Count 5.35 10^3/uL (1.2-6.7); Basophils % 0.4 %; HCT 35.2 % (40.0-50.0); HGB 11.2 g/dL (13.5-17.5); Immature Grans % 0.5 %; Lymphocytes % 24.2 %; MCH 27.7 pg (27.0-33.0); MCHC 31.8 % (32.0-36.0); MCV 87 fL (80-95); Monocytes % 9.4 %; Neutrophils % 63.5 %; Platelet Count 362 10^3/uL (130-400); RBC 4.04 10^6/uL (4.36-5.78); RDW 15.5 % (11.8-14.1); RDW-SD 49.8 fL; WBC 8.42 10^3/uL (4.4-10.8)
[2024-04-04 12:38] LABS: ALT 31 U/L (16-63); AST 31 U/L (15-37); Albumin 2.8 g/dL (3.4-5.0); Alkaline Phosphatase 217 U/L (46-116); Anion Gap 6.7 mmol/L (3-11); BUN 13 mg/dL (7-18); Bilirubin, Total 0.25 mg/dL (0.2-1.0); CO2 32.3 mmol/L (21.0-32.0); CREATININE 1.5 mg/dL (0.70-1.30); Calcium 8.4 mg/dL (8.5-10.1); Chloride 103 mmol/L (98-107); Estimated GFR 63.83 (mL/min/1.73m2); Glucose 115 mg/dL (74-106); Lipase 30 U/L (16-77); Magnesium 1.7 mg/dL (1.8-2.4); Potassium 3.4 mmol/L (3.5-5.1); Sodium 142 mmol/L (136-145); Total Protein 7.6 g/dL (6.4-8.2)
[2024-04-04] MEDS: Lactated Ringers 1,000 ML 1000 ML IV (13:21)
[2024-04-04] MEDS: Trimethobenzamide 200 MG/2 ML VIAL IM (13:22)
[2024-04-04] MEDS: Potassium Chloride 20 MEQ TABCR 40 MEQ PO (14:05)
== END 2024-04-04 14:39 | disposition home or self-care (01) ==
PROVIDERS: Emergency Provider Emergency Medicine; PCP Family Medicine
DX: R11.2 Nausea with vomiting, unspecified (principal); R19.7 Diarrhea, unspecified; E83.42 Hypomagnesemia; E83.51 Hypocalcemia; E87.6 Hypokalemia; N18.2 Chronic kidney disease, stage 2 (mild); E78.5 Hyperlipidemia, unspecified; E89.2 Postprocedural hypoparathyroidism; E31.21 Multiple endocrine neoplasia [MEN] type I; K83.09 Other cholangitis
CPT/HCPCS: 80053; 83690; 93005; 96360; 96372; 99284; 83735; 85025; 93010; 99283; J3250

== ENCOUNTER 2024-04-07 05:23 | Emergency (ER) | payer OTHER, SELFPAY ==
[2024-04-07 05:26] VITALS: BP 162/98; PULSE 122; RESP 22; TEMP 36.8; O2SAT 98
--- NOTE | 2024-04-07 05:35 | W.ED.GENAD ---
Discharge Plan Discharge Details Chief Complaint: Abd Prob Clinical Impression: Right sided abdominal pain Primary Care Provider: Brendon Vivar ED Provider: Richy Eagle Home Meds and New Rx's Prescriptions: No Action gabapentin 300 mg capsule 300 mg PO BID Qty: 180 3RF cyclobenzaprine 10 mg tablet 10 mg PO TID PRN (Reason: muscle spasm) Qty: 30 3RF methadone 10 mg/5 mL solution 100 mg PO QAM polyethylene glycol 3350 17 gram/dose powder 17 g PO DAILY PRN omeprazole 40 mg capsule,delayed release(DR/EC) 40 mg PO DAILY Qty: 90 3RF calcitriol 0.5 mcg capsule 1 mcg PO BID Qty: 180 3RF clonazepam 1 mg tablet 1 mg PO BID Qty: 56 0RF simethicone 125 mg tablet,chewable 125 mg PO QID PRN (Reason: abdominal distention) Qty: 20 3RF fluoxetine 20 mg capsule 20 mg PO DAILY Qty: 60 0RF calcium carbonate [Tums] 200 mg calcium (500 mg) tablet,chewable 2,000 mg PO BID prochlorperazine maleate 5 mg tablet 5 mg PO TID PRN (Reason: acute nausea) Qty: 30 0RF magnesium gluconate 27 mg magnesium (500 mg) tablet 13.5 mg PO TID Qty: 60 3RF HPI General Date/Time Provider Initiated Documentation: 04/07/24 05:26. HPI Narrative: This is a 28-year-old male with a past medical history significant for anxiety, depression, high cholesterol, men type I, multiple electrolyte abnormalities with subsequent parathyroidectomy on 03/26/2022 at [facility] [place], PTSD, GERD, cholecystectomy 12/07 who presents today for right upper quadrant abdominal pain. Patient states that he had a mild stomach bug 4 days ago this weekend, he had some nausea and vomiting, generalized abdominal achiness. This resolved then his symptoms had improved until this morning when he woke up and had mild right upper quadrant tenderness. He describes it as achy, and feeling similar to where his gallbladder was in the past. States that it radiates slightly medially and downward. He denies any fever or chills. No vomiting or diarrhea at all today. He denies any numbness tingling or weakness. No other complaints at this time. He has taken his methadone this morning, but no other medications. Related Data Home Medications ?Medication ?Instructions ?Recorded ?Confirmed calcium carbonate (Tums) 2,000 mg PO BID 02/02/23 04/07/24 methadone 10 mg/5 mL oral solution 100 mg PO QAM 06/12/23 04/07/24 polyethylene glycol 3350 17 17 g PO DAILY PRN 06/12/23 04/07/24 gram/dose oral powder gabapentin 300 mg capsule 300 mg PO BID #180 caps 06/23/23 04/07/24 omeprazole 40 mg capsule,delayed 40 mg PO DAILY #90 caps 07/21/23 04/07/24 release prochlorperazine maleate 5 mg 5 mg PO TID PRN acute nausea #30 09/06/23 04/07/24 tablet tabs magnesium gluconate 27 mg 13.5 mg (1/2 x 27 mg magnesium 11/21/23 04/07/24 magnesium (500 mg) tablet (500 mg)) PO TID #60 tabs cyclobenzaprine 10 mg tablet 10 mg PO TID PRN muscle spasm #30 12/04/23 04/07/24 tabs calcitriol 0.5 mcg capsule 1 mcg (2 x 0.5 mcg) PO BID #180 03/12/24 04/07/24 caps clonazepam 1 mg tablet 1 mg PO BID #56 tabs 03/12/24 04/07/24 fluoxetine 20 mg capsule 20 mg PO DAILY #60 caps 03/12/24 04/07/24 simethicone 125 mg chewable tablet 125 mg PO QID PRN abdominal 03/12/24 04/07/24 distention #20 tabs Previous Rx's ?Medication ?Instructions ?Recorded gabapentin 300 mg capsule 300 mg PO BID #180 caps 06/23/23 omeprazole 40 mg capsule,delayed 40 mg PO DAILY #90 caps 07/21/23 release prochlorperazine maleate 5 mg 5 mg PO TID PRN acute nausea #30 09/06/23 tablet tabs magnesium gluconate 27 mg 13.5 mg (1/2 x 27 mg magnesium 11/21/23 magnesium (500 mg) tablet (500 mg)) PO TID #60 tabs cyclobenzaprine 10 mg tablet 10 mg PO TID PRN muscle spasm #30 12/04/23 tabs calcitriol 0.5 mcg capsule 1 mcg (2 x 0.5 mcg) PO BID #180 03/12/24 caps clonazepam 1 mg tablet 1 mg PO BID #56 tabs 03/12/24 fluoxetine 20 mg capsule 20 mg PO DAILY #60 caps 03/12/24 simethicone 125 mg chewable tablet 125 mg PO QID PRN abdominal 03/12/24 distention #20 tabs Allergies Allergy/AdvReac Type Severity Reaction Status Date / Time codeine Allergy Intermediate pass out Verified 04/07/24 05:29 Penicillins Allergy Skin Rash Verified 04/07/24 05:29 amoxicillin AdvReac Intermediate Nausea Verified 04/07/24 05:29 dextromethorphan (From AdvReac Intermediate Other (See Verified 04/07/24 05:29 NyQuil) Comment) doxylamine (From NyQuil) AdvReac Intermediate Other (See Verified 04/07/24 05:29 Comment) pseudoephedrine (From NyQuil) AdvReac Intermediate Other (See Verified 04/07/24 05:29 Comment) General Stated Complaint: Abd Prob ADRIANA: 3 Review of Systems All systems reviewed & are unremarkable except as noted in HPI and below Exam Narrative Exam Narrative: 1.Const: Well-nourished, Well-developed, appearing stated age 2.Eyes: PERRL, no conjunctival injection, and symmetrical lids. 3.ENT: Atraumatic external nose and ears. Moist MM. Neck: Symmetric, trachea midline, No thyromegaly. 4.CVS: +S1/S2, Peripheral pulses 2+ and equal in all extremities. Brisk capillary refill in all extremities. 5.RESP: Unlabored respiratory effort. Clear to auscultation bilaterally. No wheezes rales or rhonchi 6.GI: Soft, nondistended, no guarding or rebound. Mild right upper quadrant tenderness, negative Cedillo sign. No pain to McBurney's point. Negative Rovsing sign. 7.MSK: Normocephalic/Atraumatic, Extremities w/o deformity or ttp No cyanosis or clubbing, Normal movement of all extremities 8.Skin: Warm, Dry. No rashes or lesions. 9.Neuro: family preservation officer II-XII grossly intact. Sensation grossly intact, no focal neurologic deficits. 10.Psych: (AAO) x3. Appropriate mood and affect Course Vital Signs Vital signs: Vital Signs Temperature 36.8 C 04/07/24 05:26 Pulse 122 H 04/07/24 05:26 Respiratory Rate 22 04/07/24 05:26 Blood Pressure 162/98 H 04/07/24 05:26 Pulse Oximetry 98 04/07/24 05:26 Temperature 36.8 C 04/07/24 05:26 Temperature Source Temporal Artery Scan 04/07/24 05:26 Pulse 122 H 04/07/24 05:26 Respiratory Rate 22 04/07/24 05:26 Respiratory Effort Normal, Non-Labored 04/07/24 05:29 Blood Pressure 162/98 H 04/07/24 05:26 Blood Pressure Position Sitting 04/07/24 05:26 Pulse Oximetry 98 04/07/24 05:26 Oxygen Delivery Method Room Air 04/07/24 05:26 Oxygen Flow Rate 0 04/07/24 05:26 Pain Level 6 04/07/24 05:26 Medical Decision Making This is a 28-year-old male with a past medical history significant for anxiety, depression, high cholesterol, men type I, multiple electrolyte abnormalities with subsequent parathyroidectomy on 03/26/2022 at [facility] [place], PTSD, GERD, cholecystectomy 12/07 who presents today for right upper quadrant abdominal pain. Patient states that he had a mild stomach bug 4 days ago this weekend, he had some nausea and vomiting, generalized abdominal achiness. This resolved then his symptoms had improved until this morning when he woke up and had mild right upper quadrant tenderness. He describes it as achy, and feeling similar to where his gallbladder was in the past. States that it radiates slightly medially and downward. He denies any fever or chills. No vomiting or diarrhea at all today. He denies any numbness tingling or weakness. No other complaints at this time. He has taken his methadone this morning, but no other medications. Exam demonstrates a well-appearing male, mild right upper quadrant tenderness, no pain at McBurney's point, negative Rovsing sign. No umbilical tenderness. Abdominal exam is notably nonsurgical. Differential is highest for mild enteritis, symptoms inconsistent with obstruction as he has no vomiting currently. Symptoms inconsistent with acute mesenteric ischemia, volvulus, or diverticulitis. Symptoms do not appear consistent with appendicitis at this time as he has no right lower quadrant tenderness, no fever or chills. Negative Rovsing sign. No pain at McBurney's point. Patient has had multiple CAT scans before, I discussed with the patient the risks and benefits of imaging. Will try to hold off on imaging at this time, give Bentyl and a GI cocktail to see if this changes symptomatology at all. Will monitor closely and reassess. No evidence of profound dehydration requiring IV fluids. No epigastric pain to suggest pancreatitis. 7:30 AM Patient's symptoms did not improve with Bentyl and GI cocktail. Decision was made to progress with CT imaging and labs. CBC shows no white count. Hemoglobin is 11. Renal function stable. Creatinine 1.4. Transaminases stable, alk phos slightly elevated at 190, lipase normal, urinalysis negative. Pending CT scan results of the abdomen. Patient was given Toradol and Ofirmev. Patient will be signed out to my colleague Dr. Bundy for follow-up on CT imaging. Quality:SDOH Health Related Social Needs: Health related social needs transportation insecurity(Z59.82) PFSH All Active Problems (Updated 04/07/24 @ 07:31 by Richy Eagle DO) Right sided abdominal pain (Acute) Hypokalemia (Acute) Nausea and vomiting (Acute) Palpitations (Acute) Hypocalcemia (Acute) Facial flushing (Acute) Hypokalemia (Acute) Hypocalcemia (Acute) Hypomagnesemia (Acute) Anxiety (Chronic) Pain of right calf (Acute) Obesity (Chronic) Migraine with aura (Acute) Insect bite of leg, right (Acute) Testicle lump (Acute) Hamstring tendinitis of left thigh (Acute) Pes anserine bursitis (Acute) Hypernatremia (Acute) Cervical radiculopathy (Acute) Left-sided Flower's palsy (Acute) Constipation (Acute) Grief reaction (Chronic) Opiate dependence, continuous (Acute) 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 Possible 2' Methadone, Clnzpm (?). Surg eval (+)/No further action. History of electrolyte imbalance (Acute) Neck pain on left side (Acute) with shoulder, upper back pain.. torticollis, radiating into left hip/leg Pulmonary nodule 1 cm or greater in diameter (Chronic) Therapeutic opioid induced constipation (Acute) Sphincter of Oddi dysfunction (Chronic) Abnormal CT scan, kidney (Acute) Intrahepatic bile duct dilation (Acute) Common bile duct dilatation (Chronic) Has been dilated for quite some time, now more-so. Normal LFTs. Known gallstones. Iatrogenic hypocalcemia (Acute) Multiple endocrine neoplasia type I (Chronic) Depression (Chronic) Hypocalcemia (Chronic) Elevated parathyroid hormone (Acute) Family history of coronary arteriosclerosis (Chronic) Father of ND at 50, mother had ND at 42 Severe anxiety with panic (Chronic) Medical History Urinary tract infection CKD (chronic kidney disease) stage 2, GFR 60-89 ml/min GFR 64-65, with Hx FLORESITA and GFR < 45 Primary hyperparathyroidism Complex medical condition Serious electrolyte imbalances, with gynecomastia, possible MEN Dx, CKD and anemia with baseline anxiety and Hx PTSD. Hypocalcemia Anxiety Depression Hyperlipidemia Family history of multiple endocrine neoplasia, type 1 PTSD (post-traumatic stress disorder) Per pt. states no triggers at this time. Surgical History History of laparoscopic cholecystectomy (~11/2023) H/O parathyroidectomy Family History Mother Anxiety Asthma Depression Sister Anxiety Depression Father Cancer lung & stomach Depression Diabetes Hypertension MEN 1 (multiple endocrine neoplasia) Social History Smoking/Tobacco Use Status: Never Smoking risk assessment performed?: Yes Alcohol Intake: never Drug use: Current Sobriety Substance use type: former substance user Adopted: No Caregiver/Support person: No Foster care: No Household members: none Housing: apartment Number of Children: 0 Communication Needs: None Education Level: high school Do you need help understanding health information?: Never current occupation: [employer] Pets and animals: Yes (Ally) Pets and animals: dog(s) Sexually active: No Do you think of yourself as: straight/heterosexual Current gender identity: male What is your relationship status?: How often do you talk on the phone with friends or family?: twice per week How often do you get together with friends or relatives?: never Do you belong to any clubs or organized social groups?: no Panel score (0-1 are the most socially isolated patients): 0 What type of physical activity do you participate in: walking Duration: 15-30 minutes/day Frequency: 5-6 times per week Maryam/Oriental Orthodox: Baptism Special maryam needs: No Seatbelt use: always Helmet use: Yes Helmet use: always Drive intox or ride w/intox dairy truck 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
[2024-04-07] MEDS: Dicyclomine 20 MG TAB PO (05:46)
[2024-04-07 05:52] LABS: Bilirubin Negative (Negative); Blood Negative (Negative); Clarity Clear (Clear); Glucose Negative (Negative); Ketones Negative (Negative); Leukocyte Esterase Negative (Negative); Nitrite Negative (Negative); Specific Gravity 1.015 (1.005-1.025); Urobilinogen 0.2 mg/dL (Up to 0.2)
--- NOTE | 2024-04-07 06:15 | DI.CT_ITS ---
Exam(s) CT ABDOMEN PELVIS W EXAM: CT ABDOMEN PELVIS W CLINICAL HISTORY: RUQ and right mid tenderness. TECHNIQUE: Imaging Protocol: Axial computed tomography images with coronal and sagittal reformatted images were created and reviewed CONTRAST MATERIAL: Intravenous: Omnipaque-350 100cc Oral: None COMPARISON: CT CT CHEST PE CTA from 11/29/[address] CHEST PE CTA from 12/02/2023 FINDINGS: VISUALIZED LUNG BASES: No nodules nor pleural effusions evident. ABDOMEN: There is no ascites. LIVER: There are no focal hepatic lesions evident. No dilated intrahepatic ducts. GALLBLADDER/BILIARY: The gallbladder surgically absent. CBD is not dilated. PANCREAS: No evidence of pancreatic mass nor dilatation of the pancreatic duct. SPLEEN: Spleen is not enlarged. There is a single tiny calcified granuloma in the inferior aspect th e spleen. No significant intrasplenic lesions. Splenic and portal veins are patent. ADRENALS: There are no significant adrenal masses. KIDNEYS:Right kidney unremarkable. There is a round 1.7 x 1.7 cm hypodense lesion in the superior po le of the right kidney which appears too dense to be a simple cyst. Either represents a hemorrhagic cyst, abscess, or neoplasm. Recommend ultrasound. There are no calculi in the kidneys. No hydronep hrosis.. ABDOMINAL AORTA: Abdominal aorta is not enlarged. LYMPH NODES:There is no retroperitoneal nor paraaortic adenopathy. ABDOMINAL WALL: No evidence of significant anterior abdominal wall nor inguinal hernia. GI: There is no evidence of bowel obstruction, free air, nor abscess. PELVIS: GI: Appendix is not identified. There is no evidence of appendicitis.Sigmoid is redundant but with n o evidence of significant sigmoid diverticular disease. LYMPH NODES: There are few small sub cm lymph nodes in the right side mesentery REPRODUCTIVE: Prostate is not enlarged. URINARY BLADDER: Unremarkable. OSSEOUS: No fractures and no significant osseous lesions. IMPRESSION: 1. The appendix is not identified and is possibly surgically absent. There is no evidence of appendi citis. There are, however, multiple small sub cm size lymph nodes in the right-sided mesentery media l to the ascending-right colon as well as in the central mesentery. May represent an element of mese nteric adenitis. There are no large mesenteric masses evident. No splenomegaly. 2. There is a 1.7 x 1.7 cm round lesion in the left kidney superior pole which is too dense to be a s imple cyst. Recommend ultrasound as the next step to help differentiate between this being a hemorrh agic cyst or solid lesion. 3. The gallbladder surgically absent. There is no abnormal collection in the gallbladder fossa. CBD diameter is upper normal. Minimally dilated intrahepatic ducts. There is no radiopaque calculus ev ident in the CBD. 4. No evidence of bowel obstruction, free air, nor abscess. RADIATION DOSE DELIVERED: 1,458.18mGy.cm Total DLP DATA REPOSITORY: All CT scans at this facility are submitted to the National Radiology Data Registry (NRDR) Dose Index Registry (DIR) with the [employer] (ACR). RADIATION OPTIMIZATION: All CT scans at this facility use at least one of these dose optimization te chniques: automated exposure control; mA and/or kV adjustment per patient size (includes targeted exa ms where dose is matched to clinical indication); or iterative reconstruction.
[2024-04-07] MEDS: ACETAMINOPHEN 1,000 MG/100 ML BTL 400 MG IVPB (06:39)
[2024-04-07] MEDS: Ketorolac 15 MG/ML VIAL IVP (06:40)
[2024-04-07 06:44] LABS: Abs Immature Grans 0.03 10^3/uL (0.0-0.06); Absolute Basophil Count 0.04 10^3/uL (0.0-0.2); Absolute Eosinophil Count 0.21 10^3/uL (0.0-0.7); Absolute Lymphocyte Count 1.94 10^3/uL (1.2-3.4); Absolute Monocyte Count 0.79 10^3/uL (0.1-0.8); Absolute Neutrophil Count 3.88 10^3/uL (1.2-6.7); Basophils % 0.6 %; HCT 33.5 % (40.0-50.0); Immature Grans % 0.4 %; Lymphocytes % 28.2 %; MCH 28.4 pg (27.0-33.0); MCHC 32.8 % (32.0-36.0); MCV 87 fL (80-95); MPV 9.8 fL (8.0-11.0); Monocytes % 11.5 %; Neutrophils % 56.3 %; Platelet Count 315 10^3/uL (130-400); RBC 3.87 10^6/uL (4.36-5.78); RDW 15.3 % (11.8-14.1); RDW-SD 48.9 fL; WBC 6.89 10^3/uL (4.4-10.8)
[2024-04-07 06:59] LABS: ALT 34 U/L (16-63); AST 38 U/L (15-37); Albumin 2.8 g/dL (3.4-5.0); Alkaline Phosphatase 190 U/L (46-116); Anion Gap 5.8 mmol/L (3-11); BUN 11 mg/dL (7-18); Bilirubin, Total 0.19 mg/dL (0.2-1.0); CO2 33.2 mmol/L (21.0-32.0); CREATININE 1.4 mg/dL (0.70-1.30); Calcium 9.2 mg/dL (8.5-10.1); Chloride 103 mmol/L (98-107); Estimated GFR 69.34 (mL/min/1.73m2); Glucose 107 mg/dL (74-106); Lipase 28 U/L (16-77); Potassium 3.5 mmol/L (3.5-5.1); Sodium 142 mmol/L (136-145); Total Protein 7.5 g/dL (6.4-8.2)
[2024-04-07] MEDS: Normal Saline - Diluent 50 ML VIAL IJ (07:25)
[2024-04-07] MEDS: Omnipaque 350 MG/ML 100 ML BTL IJ (07:26)
--- NOTE | 2024-04-07 08:13 | DI.VRAD_ITS ---
PROCEDURE INFORMATION: Exam: CT Abdomen And Pelvis With Contrast Exam date and time: 04/07/2024 7:17 AM Age: 28 years old Clinical indication: Other: Ruq and right mid tenderness TECHNIQUE: Imaging protocol: Computed tomography of the abdomen and pelvis with contrast. Radiation optimization: All CT scans at this facility use at least one of these dose optimization techniques: automated exposure control; mA and/or kV adjustment per patient size (includes targeted exams where dose is matched to clinical indication); or iterative reconstruction. Contrast material: OMNIPAQUE 350; Contrast volume: 100 ml; Contrast route: INTRAVENOUS (IV); COMPARISON: CT ABDOMEN PELVIS W 11/06/2023 9:19 PM FINDINGS: Limitations: Mild motion artifact. Liver: No focal hepatic lesion identified. Gallbladder and biliary ducts: Cholecystectomy with biliary ductal dilatation. Pancreas: No CT evidence for acute pancreatitis. Spleen: Splenomegaly. Adrenal glands: No mass. Kidneys and ureters: Hypodense lesion in the left kidney, statistically likely to represent a cyst but indeterminate on this examination. Cannot exclude hyperdense cyst or solid lesion. Consider nonemergent followup. No hydronephrosis or CT evidence for pyelonephritis. Stomach and bowel: No intestinal obstruction is evident. Fluid in nondilated small bowel, nonspecific. Retained fecal material is present in the colon. Areas of apparent mural thickening in the colon commensurate with underdistention. Appendix: No evidence of appendicitis. Intraperitoneal space: No free air. Vasculature: No abdominal aortic aneurysm. Lymph nodes: Nonspecific mesenteric and retroperitoneal lymph nodes. Urinary bladder: No acute findings. Reproductive: No acute findings. Bones/joints: No pertinent acute abnormality seen. Soft tissues: Small fat containing right inguinal hernia. IMPRESSION: 1. No acute findings to explain reported symptoms. 2. Nonacute findings as outlined above. Dictated and Authenticated by: Susana Smith MD. Ordering:MIS Lockhart MD
--- NOTE | 2024-04-07 09:57 | W.EDPROG ---
Date of service: 04/07/24 Time of Service: 09:57 Medical Decision Making Care was signed out by Dr. Eagle, please see his documentation regarding initial ED presentation course. Plan at signout was to follow-up on CT imaging. CT of the abdomen pelvis was interpreted by radiology: 1. The appendix is not identified and is possibly surgically absent. There is no evidence of appendicitis. There are, however, multiple small sub cm size lymph nodes in the right-sided mesentery medial to the ascending-right colon as well as in the central mesentery. May represent an element of mesenteric adenitis. There are no large mesenteric masses evident. No splenomegaly. 2. There is a 1.7 x 1.7 cm round lesion in the left kidney superior pole which is too dense to be a simple cyst. Recommend ultrasound as the next step to help differentiate between this being a hemorrhagic cyst or solid lesion. 3. The gallbladder surgically absent. There is no abnormal collection in the gallbladder fossa. CBD diameter is upper normal. Minimally dilated intrahepatic ducts. There is no radiopaque calculus evident in the CBD. 4. No evidence of bowel obstruction, free air, nor abscess. Plan for outpatient follow-up with PCP. Usual and customary discharge instructions were reviewed with the patient. Quality:SDCA Health Related Social Needs: Health related social needs transportation insecurity(Z59.82) Sign Out Sign Out Data: Sign Out Comment: Right-sided abdominal pain. Follow-up on CT imaging. Last updated by Richy Eagle DO at 04/07/24 07:32 Discharge Plan Disposition Patient Disposition: Home Condition: Stable Discharge Details Clinical Impression: Right sided abdominal pain, Lesion of left [place] kidney Primary Care Provider: Brendon Vivar ED Provider: Lester Bundy Home Meds and New Rx's Prescriptions: Continued gabapentin 300 mg capsule 300 mg PO BID Qty: 180 3RF methadone 10 mg/5 mL solution 100 mg PO QAM omeprazole 40 mg capsule,delayed release(DR/EC) 40 mg PO DAILY Qty: 90 3RF calcitriol 0.5 mcg capsule 1 mcg PO BID Qty: 180 3RF simethicone 125 mg tablet,chewable 125 mg PO QID PRN (Reason: abdominal distention) Qty: 20 3RF fluoxetine 20 mg capsule 20 mg PO DAILY Qty: 60 0RF calcium carbonate [Tums] 200 mg calcium (500 mg) tablet,chewable 2,000 mg PO BID prochlorperazine maleate 5 mg tablet 5 mg PO TID PRN (Reason: acute nausea) Qty: 30 0RF magnesium gluconate 27 mg magnesium (500 mg) tablet 13.5 mg PO TID Qty: 60 3RF No Action polyethylene glycol 3350 17 gram powder in packet 17 g PO DAILY Qty: 100 1RF cyclobenzaprine 10 mg tablet 10 mg PO TID PRN (Reason: muscle spasm) Qty: 30 3RF clonazepam 1 mg tablet 1 mg PO BID Qty: 56 0RF Discharge Instructions Instructions: Mesenteric Lymphadenitis Additional Instructions: CT imaging revealed an incidental finding of 1.1 x 1.1 cm rounded lesion in the left kidney superior pole that is too dense to be a simple cyst. It is recommended you have follow-up outpatient ultrasound as a next step to help differentiate between this being a hemorrhagic cyst or solid lesion. Please be sure to discuss this with your doctor. Please contact your primary care physician to arrange follow-up. Return to the ER immediately for any worsening or new concerning symptoms. Referrals: Brendon Vivar DO [Primary Care Provider] - Discharge Data Discharge Date/Time-TO BE ENTERED AT DEPARTURE: 04/07/24 10:11
[2024-04-07 10:08] VITALS: BP 138/95; PULSE 89; RESP 17; O2SAT 99
== END 2024-04-07 10:11 | disposition home or self-care (01) ==
PROVIDERS: Student in an Organized Health Care Education/Training Program; Emergency Provider Student in an Organized Health Care Education/Training Program; PCP Family Medicine
DX: R10.11 Right upper quadrant pain (principal); R11.0 Nausea; E78.00 Pure hypercholesterolemia, unspecified; I10 Essential (primary) hypertension; E89.2 Postprocedural hypoparathyroidism; Z90.49 Acquired absence of other specified parts of digestive tract
CPT/HCPCS: 00123; 80053; 83690; 96365; 96366; 96375; 99285; 74177; 81003; 85025; 99284; J0131; J1885; J3490

== ENCOUNTER 2024-04-10 20:55 | Emergency (ER) | payer OTHER, SELFPAY ==
[2024-04-10 20:57] VITALS: BP 123/86; PULSE 130; RESP 20; TEMP 36.7; O2SAT 100
--- NOTE | 2024-04-10 21:00 | RT.EKG_ITS ---
APPROVED REPORT Exam: Resting ECG Reason for Exam: CHEST PAIN Patient Location: E HR:120 bpm ECG Measurements Heart Rate 120 AXIS IL 155 P 42 QRSd 95 QRS 28 QT 332 T 19 QTc 470 Conclusion Sinus tachycardia, rate 120 No interval abnormalities No STEMI
--- NOTE | 2024-04-10 21:12 | DI.RAD_ITS ---
Exam(s) XR SHOULDER LT COMPLETE 2+V EXAM: XR SHOULDER LT COMPLETE 2+V CLINICAL HISTORY: pain shoulder joint, atraumatic. TECHNIQUE: 2D digital imaging was performed. COMPARISON: CR XR SHOULDER LT COMPLETE 2+V from 03/20/2023 FINDINGS: 3 views No evidence of acute fracture nor dislocation of the humeral head. Glenohumeral joint appears unrema rkable. Two small calcific densities are seen projected over the medial aspect of the humeral head. Difficult to tell of these are benign bone islands are possibly loose bodies without an axial image. These both measure approximately 4 mm. The ipsilateral clavicle and AC joint appear intact. There is a horizontal lucency noted within the a chromium but this as more appearance of developmental than a fracture. IMPRESSION: No fracture or dislocation. Two calcific densities projected over the humeral head. There is possibility that these are either b one islands or loose bodies. Recommend follow-up axial view for added specificity. DATA REPOSITORY: RADIATION DOSE DELIVERED:
--- NOTE | 2024-04-10 21:30 | DI.RAD_ITS ---
Exam(s) XR CHEST 2V PA LATERAL EXAM: XR CHEST 2V PA LATERAL CLINICAL HISTORY: left shoulder and chest pain. TECHNIQUE: 2D digital imaging was performed. COMPARISON: CR,XR XR CHEST 2V PA LATERAL from 03/08/2024 FINDINGS: 2 views: Heart size is normal. The mediastinum is not widened. Lungs are clear. No infiltrates nor pleural effusions. IMPRESSION: No acute pulmonary findings. DATA REPOSITORY: RADIATION DOSE DELIVERED:
[2024-04-10 21:50] VITALS: RESP 18
--- NOTE | 2024-04-10 22:43 | DI.VRAD_ITS ---
PROCEDURE INFORMATION: Exam: XR Chest Exam date and time: 04/10/2024 9:33 PM Age: 28 years old Clinical indication: Other: Left shoulder and chest pain TECHNIQUE: Imaging protocol: Radiologic exam of the chest. Views: 2 views. COMPARISON: CR XR CHEST 2V PA LATERAL 03/08/2024 9:10 PM FINDINGS: Lungs: Unremarkable. No consolidation. Pleural spaces: Unremarkable. No pleural effusion. No pneumothorax. Heart/Mediastinum: Unremarkable. No cardiomegaly. Bones/joints: Unremarkable. IMPRESSION: No acute findings. Dictated and Authenticated by: Jammie Rodrigues MD. Ordering:JOYCE Arvizu MD
--- NOTE | 2024-04-10 22:44 | DI.VRAD_ITS ---
PROCEDURE INFORMATION: Exam: XR Left Shoulder Exam date and time: 04/10/2024 9:31 PM Age: 28 years old Clinical indication: Other: Pain shoulder joint, atraumatic TECHNIQUE: Imaging protocol: Radiologic exam of the left shoulder. Views: 2 or more views. COMPARISON: CR XR SHOULDER LT COMPLETE 2+V 03/20/2023 10:01 AM FINDINGS: Bones/joints: Normal. Soft tissues: Normal. IMPRESSION: No acute findings. Dictated and Authenticated by: Jammie Rodrigues MD. Ordering:JOYCE Arvizu MD
[2024-04-10 22:50] VITALS: BP 123/81; PULSE 116; RESP 18; O2SAT 95
--- NOTE | 2024-04-11 17:10 | W.ED.GENAD ---
Discharge Plan Disposition Patient Disposition: Home Condition: Stable Discharge Details Clinical Impression: Left shoulder pain Primary Care Provider: Brendon Vivar ED Provider: Luh Tsai Home Meds and New Rx's Prescriptions: Continued gabapentin 300 mg capsule 300 mg PO BID Qty: 180 3RF methadone 10 mg/5 mL solution 100 mg PO QAM omeprazole 40 mg capsule,delayed release(DR/EC) 40 mg PO DAILY Qty: 90 3RF calcitriol 0.5 mcg capsule 1 mcg PO BID Qty: 180 3RF simethicone 125 mg tablet,chewable 125 mg PO QID PRN (Reason: abdominal distention) Qty: 20 3RF fluoxetine 20 mg capsule 20 mg PO DAILY Qty: 60 0RF polyethylene glycol 3350 17 gram powder in packet 17 g PO DAILY Qty: 100 1RF cyclobenzaprine 10 mg tablet 10 mg PO TID PRN (Reason: muscle spasm) Qty: 30 3RF clonazepam 1 mg tablet 1 mg PO BID Qty: 56 0RF calcium carbonate [Tums] 200 mg calcium (500 mg) tablet,chewable 2,000 mg PO BID prochlorperazine maleate 5 mg tablet 5 mg PO TID PRN (Reason: acute nausea) Qty: 30 0RF magnesium gluconate 27 mg magnesium (500 mg) tablet 13.5 mg PO TID Qty: 60 3RF Discharge Instructions Instructions: Shoulder Pain (DC) Additional Instructions: motrin/tylenol for pain diclofenac/voltaren gel to your shoulder Follow-up with physical therapy Continue to range shoulder so that it does not become stiff Please return earlier should you have new or worsening complaints Stand Alone Forms: Physical Therapy Referral Referrals: Brendon Vivar DO [Primary Care Provider] - 2 days Discharge Data Discharge Date/Time-TO BE ENTERED AT DEPARTURE: 04/10/24 22:50 HPI General Date/Time Provider Initiated Documentation: 04/10/24 21:01. HPI Narrative: This 28-year-old male presents with left shoulder pain that started approximately 24 hours prior to arrival. Worse with any sort of movement and palpation left shoulder. Denies known trauma has had this pain intermittently in the past but never so severe as this. Denies history of IV drug use. States the pain is worse with movement of the shoulder. Denies any neck pain or strength or sensation change but does state that the pain radiates into his left forearm. Denies repetitive use of this arm and is right-hand dominant. Denies chest pain or shortness of breath. Related Data Home Medications ?Medication ?Instructions ?Recorded ?Confirmed calcium carbonate (Tums) 2,000 mg PO BID 02/02/23 04/10/24 methadone 10 mg/5 mL oral solution 100 mg PO QAM 06/12/23 04/10/24 gabapentin 300 mg capsule 300 mg PO BID #180 caps 06/23/23 04/10/24 omeprazole 40 mg capsule,delayed 40 mg PO DAILY #90 caps 07/21/23 04/10/24 release prochlorperazine maleate 5 mg 5 mg PO TID PRN acute nausea #30 09/06/23 04/10/24 tablet tabs magnesium gluconate 27 mg 13.5 mg (1/2 x 27 mg magnesium 11/21/23 04/10/24 magnesium (500 mg) tablet (500 mg)) PO TID #60 tabs calcitriol 0.5 mcg capsule 1 mcg (2 x 0.5 mcg) PO BID #180 03/12/24 04/10/24 caps fluoxetine 20 mg capsule 20 mg PO DAILY #60 caps 03/12/24 04/10/24 simethicone 125 mg chewable tablet 125 mg PO QID PRN abdominal 03/12/24 04/10/24 distention #20 tabs clonazepam 1 mg tablet 1 mg PO BID #56 tabs 04/09/24 04/10/24 cyclobenzaprine 10 mg tablet 10 mg PO TID PRN muscle spasm #30 04/09/24 04/10/24 tabs polyethylene glycol 3350 17 gram 17 g PO DAILY #100 ea 04/09/24 04/10/24 oral powder packet Previous Rx's ?Medication ?Instructions ?Recorded gabapentin 300 mg capsule 300 mg PO BID #180 caps 06/23/23 omeprazole 40 mg capsule,delayed 40 mg PO DAILY #90 caps 07/21/23 release prochlorperazine maleate 5 mg 5 mg PO TID PRN acute nausea #30 09/06/23 tablet tabs magnesium gluconate 27 mg 13.5 mg (1/2 x 27 mg magnesium 11/21/23 magnesium (500 mg) tablet (500 mg)) PO TID #60 tabs calcitriol 0.5 mcg capsule 1 mcg (2 x 0.5 mcg) PO BID #180 03/12/24 caps fluoxetine 20 mg capsule 20 mg PO DAILY #60 caps 03/12/24 simethicone 125 mg chewable tablet 125 mg PO QID PRN abdominal 03/12/24 distention #20 tabs clonazepam 1 mg tablet 1 mg PO BID #56 tabs 04/09/24 cyclobenzaprine 10 mg tablet 10 mg PO TID PRN muscle spasm #30 04/09/24 tabs polyethylene glycol 3350 17 gram 17 g PO DAILY #100 ea 04/09/24 oral powder packet Allergies Allergy/AdvReac Type Severity Reaction Status Date / Time codeine Allergy Intermediate pass out Verified 04/10/24 21:01 Penicillins Allergy Skin Rash Verified 04/10/24 21:01 amoxicillin AdvReac Intermediate Nausea Verified 04/10/24 21:01 dextromethorphan (From AdvReac Intermediate Other (See Verified 04/10/24 21:01 NyQuil) Comment) doxylamine (From NyQuil) AdvReac Intermediate Other (See Verified 04/10/24 21:01 Comment) pseudoephedrine (From NyQuil) AdvReac Intermediate Other (See Verified 04/10/24 21:01 Comment) General Stated Complaint: Chest Pain ADRIANA: 3 Exam Narrative Exam Narrative: Alert and oriented 28-year-old anxious male, left shoulder tenderness at long head insertion site, pain worsened with adduction and internal rotation, neurovascularly intact, no cervical spine tenderness, strength intact, no erythema or obvious swelling to joint. No warmth or redness appreciated to shoulder. No tenderness with palpation to left elbow or tenderness to forearm. No palpable mass Course Vital Signs Vital signs: Vital Signs Temperature 36.7 C 04/10/24 20:57 Pulse 130 H 04/10/24 20:57 Respiratory Rate 20 04/10/24 20:57 Blood Pressure 123/86 04/10/24 20:57 Pulse Oximetry 100 04/10/24 20:57 Temperature 36.7 C 04/10/24 20:57 Temperature Source Tympanic 04/10/24 20:57 Pulse 116 H 04/10/24 22:50 Respiratory Rate 18 04/10/24 22:50 Respiratory Effort Normal 04/10/24 21:50 Respiratory Depth Normal 04/10/24 21:50 Respiratory Pattern Normal 04/10/24 21:50 Blood Pressure 123/81 04/10/24 22:50 Pulse Oximetry 95 04/10/24 22:50 Medical Decision Making 28-year-old male presenting to this facility with left shoulder pain, history of tachycardia, tachycardia consistent with patient's prior assessments and is largely unchanged. X-ray was ordered of chest and left shoulder without significant acute abnormality, calcific densities possible tendinitis per radiology interpretation my review. No evidence of septic arthritis. Declined sling, will continue to range shoulder so it does not become stiff, will take ibuprofen and Tylenol. Pain. Referral to physical therapy supplied. Voltaren gel encouraged. Return precautions reviewed and patient expressed understanding Quality:SDOH Health Related Social Needs: Health related social needs transportation insecurity(Z59.82) PFSH All Active Problems (Updated 04/10/24 @ 22:38 by ANDREW Arriaga) Left shoulder pain (Acute) IBS (irritable bowel syndrome) (Chronic) Lesion of left [place] kidney (Acute) Right sided abdominal pain (Acute) Hypokalemia (Acute) Nausea and vomiting (Acute) Palpitations (Acute) Hypocalcemia (Acute) Facial flushing (Acute) Hypokalemia (Acute) Hypocalcemia (Acute) Hypomagnesemia (Acute) Pain of right calf (Acute) Obesity (Chronic) Migraine with aura (Acute) Insect bite of leg, right (Acute) Testicle lump (Acute) Hamstring tendinitis of left thigh (Acute) Pes anserine bursitis (Acute) Hypernatremia (Acute) Cervical radiculopathy (Acute) Left-sided Flower's palsy (Acute) Constipation (Acute) Grief reaction (Chronic) Opiate dependence, continuous (Acute) 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 Possible 2' Methadone, Clnzpm (?). Surg eval (+)/No further action. History of electrolyte imbalance (Acute) Neck pain on left side (Acute) with shoulder, upper back pain.. torticollis, radiating into left hip/leg Pulmonary nodule 1 cm or greater in diameter (Chronic) Therapeutic opioid induced constipation (Acute) Sphincter of Oddi dysfunction (Chronic) Abnormal CT scan, kidney (Acute) Intrahepatic bile duct dilation (Acute) Common bile duct dilatation (Chronic) Has been dilated for quite some time, now more-so. Normal LFTs. Known gallstones. Iatrogenic hypocalcemia (Acute) Multiple endocrine neoplasia type I (Chronic) Depression (Chronic) Hypocalcemia (Chronic) Elevated parathyroid hormone (Acute) Family history of coronary arteriosclerosis (Chronic) Father of [place] at 50, mother had [place] at 42 Severe anxiety with panic (Chronic) Medical History Urinary tract infection CKD (chronic kidney disease) stage 2, GFR 60-89 ml/min GFR 64-65, with Hx FLORESITA and GFR < 45 Primary hyperparathyroidism Complex medical condition Serious electrolyte imbalances, with gynecomastia, possible MEN Dx, CKD and anemia with baseline anxiety and Hx PTSD. Hypocalcemia Anxiety Depression Hyperlipidemia Family history of multiple endocrine neoplasia, type 1 PTSD (post-traumatic stress disorder) Per pt. states no triggers at this time. Surgical History History of laparoscopic cholecystectomy (~11/2023) H/O parathyroidectomy Family History Mother Anxiety Asthma Depression Sister Anxiety Depression Father Cancer lung & stomach Depression Diabetes Hypertension MEN 1 (multiple endocrine neoplasia) Social History Smoking/Tobacco Use Status: Never Smoking risk assessment performed?: Yes Alcohol Intake: never Drug use: Current Sobriety Substance use type: former substance user Adopted: No Caregiver/Support person: No Foster care: No Household members: none Housing: apartment Number of Children: 0 Communication Needs: None Education Level: high school Do you need help understanding health information?: Never current occupation: [employer] Pets and animals: Yes (Ally) Pets and animals: dog(s) Sexually active: No Do you think of yourself as: straight/heterosexual Current gender identity: male What is your relationship status?: How often do you talk on the phone with friends or family?: twice per week How often do you get together with friends or relatives?: never Do you belong to any clubs or organized social groups?: no Panel score (0-1 are the most socially isolated patients): 0 What type of physical activity do you participate in: walking Duration: 15-30 minutes/day Frequency: 5-6 times per week Maryam/Restorationism: Amish Special maryam needs: No Seatbelt use: always Helmet use: Yes Helmet use: always Drive intox or ride w/intox bicycle taxi 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
== END 2024-04-10 22:50 | disposition home or self-care (01) ==
PROVIDERS: Emergency Provider Physician Assistant; PCP Family Medicine
DX: M25.512 Pain in left shoulder (principal)
CPT/HCPCS: 93005; 99283; 71046; 73030; 93010

== ENCOUNTER 2024-04-17 14:00 | Emergency (ER) | payer OTHER, SELFPAY ==
[2024-04-17] VITALS (10 sets, daily range): BP systolic 125–134; BP diastolic 72–81; PULSE 80–94; RESP 9–20; TEMP 37.6; O2SAT 94–97
--- NOTE | 2024-04-17 14:00 | RT.EKG_ITS ---
APPROVED REPORT Exam: Resting ECG Reason for Exam: Palpitations Patient Location: E HR:107 bpm ECG Measurements Heart Rate 107 AXIS NE 171 P 40 QRSd 92 QRS 64 QT 341 T 10 QTc 457 Conclusion Sinus tachycardia...rate> 99 Intervals normal I have reviewed and interpreted ECG and agree with software generated interpretation.
[2024-04-17] MEDS: Calcium Carbonate *TUMS* 500 MG CHEW 2000 MG PO (14:22)
[2024-04-17] MEDS: Magnesium Oxide 400 MG TAB 800 MG PO (14:22)
--- NOTE | 2024-04-17 14:30 | W.ED.GENAD ---
Discharge Plan Disposition Patient Disposition: Home Condition: Good Discharge Details Chief Complaint: GenMedical Clinical Impression: Hypocalcemia Primary Care Provider: Brendon Vivar ED Provider: Richy Eagle Home Meds and New Rx's Prescriptions: No Action gabapentin 300 mg capsule 300 mg PO BID Qty: 180 3RF methadone 10 mg/5 mL solution 100 mg PO QAM omeprazole 40 mg capsule,delayed release(DR/EC) 40 mg PO DAILY Qty: 90 3RF simethicone 125 mg tablet,chewable 125 mg PO QID PRN (Reason: abdominal distention) Qty: 20 3RF fluoxetine 20 mg capsule 20 mg PO DAILY Qty: 60 0RF polyethylene glycol 3350 17 gram powder in packet 17 g PO DAILY Qty: 100 1RF cyclobenzaprine 10 mg tablet 10 mg PO TID PRN (Reason: muscle spasm) Qty: 30 3RF clonazepam 1 mg tablet 1 mg PO BID Qty: 56 0RF calcium carbonate [Tums] 200 mg calcium (500 mg) tablet,chewable 2,000 mg PO BID prochlorperazine maleate 5 mg tablet 5 mg PO TID PRN (Reason: acute nausea) Qty: 30 0RF calcitriol 0.5 mcg capsule 1 mcg PO TID magnesium gluconate 27 mg magnesium (500 mg) tablet 13.5 mg PO TID Qty: 60 3RF Discharge Instructions Instructions: Hypocalcemia Additional Instructions: At this time your calcium was slightly low, and your magnesium was borderline low. Please continue with your extra dosing for the next few days and gradually taper down after this. Please follow-up closely with your pediatric social worker. If you notice any worsening of your symptoms, or any new symptoms such as vomiting, diarrhea, fever, chills, shortness of breath, chest pain, numbness, weakness, or fainting , please return immediately to the emergency department for reevaluation. Please follow up with your primary care provider as soon as possible for reassessment and reevaluation. As always, it was a pleasure participating in your medical care today. Referrals: Brendon Vivar DO [Primary Care Provider] - HPI General Date/Time Provider Initiated Documentation: 04/17/24 14:15. HPI Narrative: This is a 28-year-old male with a past medical history significant for anxiety, depression, high cholesterol, men type I, multiple electrolyte abnormalities with subsequent parathyroidectomy on 03/26/2022 at [facility] [place], PTSD, GERD, cholecystectomy 12/07. In regards to his electrolytes, at this time he has recently had his calcitriol increased from 1 mcg twice daily to 1 mcg in the morning, and 2 mcg at night. Additionally he takes 2000 mg of calcium daily, and 500 mg of magnesium twice daily. He states that over the last few days he has noticed tingling in his cheeks, which is usually reflective of low calcium or magnesium levels. He is increased his calcium to 3000/day, and increase his magnesium to 1500/day. He admits to mild fatigue. He denies any chest pain or shortness of breath. No other complaints at this time. Related Data Home Medications ?Medication ?Instructions ?Recorded ?Confirmed calcium carbonate (Tums) 2,000 mg PO BID 02/02/23 04/17/24 methadone 10 mg/5 mL oral solution 100 mg PO QAM 06/12/23 04/17/24 gabapentin 300 mg capsule 300 mg PO BID #180 caps 06/23/23 04/17/24 omeprazole 40 mg capsule,delayed 40 mg PO DAILY #90 caps 07/21/23 04/17/24 release prochlorperazine maleate 5 mg 5 mg PO TID PRN acute nausea #30 09/06/23 04/17/24 tablet tabs magnesium gluconate 27 mg 13.5 mg (1/2 x 27 mg magnesium 11/21/23 04/17/24 magnesium (500 mg) tablet (500 mg)) PO TID #60 tabs fluoxetine 20 mg capsule 20 mg PO DAILY #60 caps 03/12/24 04/17/24 simethicone 125 mg chewable tablet 125 mg PO QID PRN abdominal 03/12/24 04/17/24 distention #20 tabs clonazepam 1 mg tablet 1 mg PO BID #56 tabs 04/09/24 04/17/24 cyclobenzaprine 10 mg tablet 10 mg PO TID PRN muscle spasm #30 04/09/24 04/17/24 tabs polyethylene glycol 3350 17 gram 17 g PO DAILY #100 ea 04/09/24 04/17/24 oral powder packet calcitriol 0.5 mcg capsule 1 mcg PO TID 04/17/24 04/17/24 Previous Rx's ?Medication ?Instructions ?Recorded gabapentin 300 mg capsule 300 mg PO BID #180 caps 06/23/23 omeprazole 40 mg capsule,delayed 40 mg PO DAILY #90 caps 07/21/23 release prochlorperazine maleate 5 mg 5 mg PO TID PRN acute nausea #30 09/06/23 tablet tabs magnesium gluconate 27 mg 13.5 mg (1/2 x 27 mg magnesium 11/21/23 magnesium (500 mg) tablet (500 mg)) PO TID #60 tabs fluoxetine 20 mg capsule 20 mg PO DAILY #60 caps 03/12/24 simethicone 125 mg chewable tablet 125 mg PO QID PRN abdominal 03/12/24 distention #20 tabs clonazepam 1 mg tablet 1 mg PO BID #56 tabs 04/09/24 cyclobenzaprine 10 mg tablet 10 mg PO TID PRN muscle spasm #30 04/09/24 tabs polyethylene glycol 3350 17 gram 17 g PO DAILY #100 ea 04/09/24 oral powder packet Allergies Allergy/AdvReac Type Severity Reaction Status Date / Time codeine Allergy Intermediate pass out Verified 04/17/24 14:07 Penicillins Allergy Skin Rash Verified 04/17/24 14:07 amoxicillin AdvReac Intermediate Nausea Verified 04/17/24 14:07 dextromethorphan (From AdvReac Intermediate Other (See Verified 04/17/24 14:07 NyQuil) Comment) doxylamine (From NyQuil) AdvReac Intermediate Other (See Verified 04/17/24 14:07 Comment) pseudoephedrine (From NyQuil) AdvReac Intermediate Other (See Verified 04/17/24 14:07 Comment) General Stated Complaint: GenMedical ADRIANA: 3 Review of Systems All systems reviewed & are unremarkable except as noted in HPI and below Exam Narrative Exam Narrative: 1.Const: Well-nourished, Well-developed, appearing stated age 2.Eyes: PERRL, no conjunctival injection, and symmetrical lids. 3.ENT: Atraumatic external nose and ears. Moist MM. Neck: Symmetric, trachea midline, No thyromegaly. 4.CVS: +S1/S2, Peripheral pulses 2+ and equal in all extremities. Brisk capillary refill in all extremities. 5.RESP: Unlabored respiratory effort. Clear to auscultation bilaterally. No wheezes rales or rhonchi 6.GI: Soft, Nontender/Nondistended, No hepatosplenomegaly. No guarding or rebound. 7.MSK: Normocephalic/Atraumatic, Extremities w/o deformity or ttp No cyanosis or clubbing, Normal movement of all extremities. Negative chovstick and Trousseau sign 8.Skin: Warm, Dry. No rashes or lesions. 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 Sensation grossly intact, no focal neurologic deficits. 10.Psych: (AAO) x3. Appropriate mood and affect Course Vital Signs Vital signs: Vital Signs Temperature 37.6 C 04/17/24 14:01 Pulse 94 H 04/17/24 14:01 Respiratory Rate 14 04/17/24 14:01 Blood Pressure 125/81 04/17/24 14:01 Pulse Oximetry 94 04/17/24 14:01 Temperature 37.6 C 04/17/24 14:10 Temperature Source Oral 04/17/24 14:10 Pulse 94 H 04/17/24 14:10 Respiratory Rate 14 04/17/24 14:10 Respiratory Effort Normal, Non-Labored 04/17/24 14:23 Respiratory Depth Normal 04/17/24 14:23 Respiratory Pattern Normal 04/17/24 14:23 Blood Pressure 125/81 04/17/24 14:10 Blood Pressure Position Sitting 04/17/24 14:10 Pulse Oximetry 94 04/17/24 14:10 Oxygen Delivery Method Room Air 04/17/24 14:10 Oxygen Flow Rate 0 04/17/24 14:10 Pain Level 0 04/17/24 14:10 Medical Decision Making This is a 28-year-old male with a past medical history significant for anxiety, depression, high cholesterol, men type I, multiple electrolyte abnormalities with subsequent parathyroidectomy on 03/26/2022 at [facility] [place], PTSD, GERD, cholecystectomy 12/07. In regards to his electrolytes, at this time he has recently had his calcitriol increased from 1 mcg twice daily to 1 mcg in the morning, and 2 mcg at night. Additionally he takes 2000 mg of calcium daily, and 500 mg of magnesium twice daily. He states that over the last few days he has noticed tingling in his cheeks, which is usually reflective of low calcium or magnesium levels. He is increased his calcium to 3000/day, and increase his magnesium to 1500/day. He admits to mild fatigue. He denies any chest pain or shortness of breath. No other complaints at this time. Exam demonstrates well-appearing male, vital signs notably stable. Negative chovstick and Trousseau sign. Will evaluate for these electrolyte abnormalities, monitor closely and reassess. We will give oral calcium and magnesium while we wait for labs to return. EKG demonstrates normal intervals. Laboratory workup shows evidence of mild hypocalcemia 8.3. Magnesium is borderline low at 1.8. We already gave oral replacement, will give an amp of IV calcium slowly, as well as 2 g of IV magnesium. Recommend continued high doses at home for continued replacement. Patient otherwise stable. Hemodynamics remained stable during stay. Discussed red flags for which to return. Recommend close follow-up with endocrinology. I have extensively reviewed the treatment plan and discharge instructions with the patient. I have addressed all patient concerns at this time. The patient was made aware of what symptoms to monitor for that would warrant a return to the emergency department. Discussed the plan with the patient, they demonstrate verbal understanding and agreement with our assessment and plan at this time. The documentation in this chart was dictated using [employer] dictation software. Please excuse any dictation errors. Quality:SDOH Health Related Social Needs: Health related social needs transportation insecurity(Z59.82) PFSH All Active Problems (Updated 04/17/24 @ 16:35 by Richy Eagle DO) Hypocalcemia (Acute) Left shoulder pain (Acute) IBS (irritable bowel syndrome) (Chronic) Lesion of left [place] kidney (Acute) Right sided abdominal pain (Acute) Hypokalemia (Acute) Nausea and vomiting (Acute) Palpitations (Acute) Hypocalcemia (Acute) Facial flushing (Acute) Pain of right calf (Acute) Obesity (Chronic) Migraine with aura (Acute) Insect bite of leg, right (Acute) Testicle lump (Acute) Hamstring tendinitis of left thigh (Acute) Pes anserine bursitis (Acute) Hypernatremia (Acute) Cervical radiculopathy (Acute) Left-sided Flower's palsy (Acute) Constipation (Acute) Grief reaction (Chronic) Opiate dependence, continuous (Acute) 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 Possible 2' Methadone, Clnzpm (?). Surg eval (+)/No further action. History of electrolyte imbalance (Acute) Neck pain on left side (Acute) with shoulder, upper back pain.. torticollis, radiating into left hip/leg Pulmonary nodule 1 cm or greater in diameter (Chronic) Therapeutic opioid induced constipation (Acute) Sphincter of Oddi dysfunction (Chronic) Abnormal CT scan, kidney (Acute) Intrahepatic bile duct dilation (Acute) Common bile duct dilatation (Chronic) Has been dilated for quite some time, now more-so. Normal LFTs. Known gallstones. Iatrogenic hypocalcemia (Acute) Multiple endocrine neoplasia type I (Chronic) Depression (Chronic) Hypocalcemia (Chronic) Elevated parathyroid hormone (Acute) Family history of coronary arteriosclerosis (Chronic) Father of IL at 50, mother had IL at 42 Severe anxiety with panic (Chronic) Medical History Urinary tract infection CKD (chronic kidney disease) stage 2, GFR 60-89 ml/min GFR 64-65, with Hx FLORESITA and GFR < 45 Primary hyperparathyroidism Complex medical condition Serious electrolyte imbalances, with gynecomastia, possible MEN Dx, CKD and anemia with baseline anxiety and Hx PTSD. Hypocalcemia Anxiety Depression Hyperlipidemia Family history of multiple endocrine neoplasia, type 1 PTSD (post-traumatic stress disorder) Per pt. states no triggers at this time. Surgical History History of laparoscopic cholecystectomy (~11/2023) H/O parathyroidectomy Family History Mother Anxiety Asthma Depression Sister Anxiety Depression Father Cancer lung & stomach Depression Diabetes Hypertension MEN 1 (multiple endocrine neoplasia) Social History Smoking/Tobacco Use Status: Never Smoking risk assessment performed?: Yes Alcohol Intake: never Drug use: Current Sobriety Substance use type: former substance user Adopted: No Caregiver/Support person: No Foster care: No Household members: none Housing: apartment Number of Children: 0 Communication Needs: None Education Level: high school Do you need help understanding health information?: Never 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[employer] Pets and animals: Yes (Ally) Pets and animals: dog(s) Sexually active: No Do you think of yourself as: straight/heterosexual Current gender identity: male What is your relationship status?: How often do you talk on the phone with friends or family?: twice per week How often do you get together with friends or relatives?: never Do you belong to any clubs or organized social groups?: no Panel score (0-1 are the most socially isolated patients): 0 What type of physical activity do you participate in: walking Duration: 15-30 minutes/day Frequency: 5-6 times per week Maryam/Christianity: Congregational Special maryam needs: No Seatbelt use: always Helmet use: Yes Helmet use: always Drive intox or ride w/intox cdl b 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
[2024-04-17 15:06] LABS: ALT 21 U/L (16-63); AST 22 U/L (15-37); Albumin 3.1 g/dL (3.4-5.0); Alkaline Phosphatase 206 U/L (46-116); Anion Gap 7.5 mmol/L (3-11); BUN 14 mg/dL (7-18); Bilirubin, Total 0.18 mg/dL (0.2-1.0); CO2 31.5 mmol/L (21.0-32.0); CREATININE 1.5 mg/dL (0.70-1.30); Calcium 8.3 mg/dL (8.5-10.1); Chloride 103 mmol/L (98-107); Estimated GFR 63.83 (mL/min/1.73m2); Glucose 104 mg/dL (74-106); Magnesium 1.8 mg/dL (1.8-2.4); Potassium 3.7 mmol/L (3.5-5.1); Sodium 142 mmol/L (136-145); Total Protein 8.1 g/dL (6.4-8.2)
[2024-04-17] MEDS: Calcium Gluconate 4.65 MEQ/10 ML VIAL 4.65 MG IVP (15:38)
[2024-04-17] MEDS: Normal Saline 50 ML 100 ML (15:38)
[2024-04-17] MEDS: MAGNESIUM SULFATE 2 GM/50 ML BAG IV_INF (15:38)
== END 2024-04-17 16:45 | disposition home or self-care (01) ==
PROVIDERS: Emergency Provider Student in an Organized Health Care Education/Training Program; PCP Family Medicine
DX: E83.51 Hypocalcemia (principal); E83.42 Hypomagnesemia; E89.2 Postprocedural hypoparathyroidism; E78.5 Hyperlipidemia, unspecified; Z90.49 Acquired absence of other specified parts of digestive tract
CPT/HCPCS: 36415; 80053; 93005; 96374; 96375; 99284; 83735; 93010; 99283; J0612; J3475

== ENCOUNTER 2024-04-22 20:09 | Outpatient (REF) | payer MEDICAID, SELFPAY | END 2024-04-22 20:10 | disposition home or self-care (01) | LOC: LBN 20:09 | PROVIDERS: PCP Family Medicine; Visit Provider Physician Assistant Medical | DX: J02.9 Acute pharyngitis, unspecified (principal) | CPT/HCPCS: 87070 ==

== ENCOUNTER 2024-04-23 18:34 | Emergency (ER) | payer OTHER, MEDICAID, SELFPAY ==
[2024-04-23 18:35] VITALS: BP 136/68; PULSE 111; RESP 18; TEMP 36.9; O2SAT 97
--- NOTE | 2024-04-23 19:55 | ED.GENADUL_ITS ---
Discharge Plan Disposition Patient Disposition: Home Condition: Stable Discharge Details Clinical Impression: Pharyngitis Primary Care Provider: Brendon Vivar ED Provider: Richy Oakes Home Meds and New Rx's Prescriptions: Continued gabapentin 300 mg capsule 300 mg PO BID Qty: 180 3RF methadone 10 mg/5 mL solution 100 mg PO QAM omeprazole 40 mg capsule,delayed release(DR/EC) 40 mg PO DAILY Qty: 90 3RF simethicone 125 mg tablet,chewable 125 mg PO QID PRN (Reason: abdominal distention) Qty: 20 3RF fluoxetine 20 mg capsule 20 mg PO DAILY Qty: 60 0RF polyethylene glycol 3350 17 gram powder in packet 17 g PO DAILY Qty: 100 1RF cyclobenzaprine 10 mg tablet 10 mg PO TID PRN (Reason: muscle spasm) Qty: 30 3RF clonazepam 1 mg tablet 1 mg PO BID Qty: 56 0RF calcium carbonate [Tums] 200 mg calcium (500 mg) tablet,chewable 2,000 mg PO BID prochlorperazine maleate 5 mg tablet 5 mg PO TID PRN (Reason: acute nausea) Qty: 30 0RF calcitriol 0.5 mcg capsule 1 mcg PO TID magnesium gluconate 27 mg magnesium (500 mg) tablet 13.5 mg PO TID Qty: 60 3RF Discharge Instructions Instructions: Sore Throat, Adult ED Additional Instructions: You were seen in the emergency department for your sore throat for a few days, your strep culture is pending, please continue taking Tylenol and ibuprofen as needed for pain, use tea with honey to coat your throat for symptomatic relief. If you experience decreased range of motion in your jaw and worsening vocal changes with severe dysphagia or excessive drooling please return to the emergency department. Referrals: Brendon Vivar DO [Primary Care Provider] - Discharge Data Discharge Date/Time-TO BE ENTERED AT DEPARTURE: 04/23/24 20:55 HPI General Date/Time Provider Initiated Documentation: 04/23/24 19:03 . HPI Narrative: 28 year-old male presents to ED today by POV/ambulating with a chief complaint of sore throat with onset 3 days ago. Quality described as hoarse vocal changes, diarrhea, sweating, sore throat, no radiation to cough, neck swelling, dysphagia, trismus, shortness of breaht, vomiting. Severity is described as mild to moderate. Palliating factors include nothing specific attempted. Provoking factors include nothing specific. Patient not anticoagulated. Related Data Home Medications ?Medication ?Instructions ?Recorded ?Confirmed calcium carbonate (Tums) 2,000 mg PO BID 02/02/23 04/25/24 methadone 10 mg/5 mL oral solution 100 mg PO QAM 06/12/23 04/25/24 gabapentin 300 mg capsule 300 mg PO BID #180 caps 06/23/23 04/25/24 omeprazole 40 mg capsule,delayed 40 mg PO DAILY #90 caps 07/21/23 04/25/24 release prochlorperazine maleate 5 mg 5 mg PO TID PRN acute nausea #30 09/06/23 04/25/24 tablet tabs magnesium gluconate 27 mg 13.5 mg (1/2 x 27 mg magnesium 11/21/23 04/25/24 magnesium (500 mg) tablet (500 mg)) PO TID #60 tabs fluoxetine 20 mg capsule 20 mg PO DAILY #60 caps 03/12/24 04/25/24 simethicone 125 mg chewable tablet 125 mg PO QID PRN abdominal 03/12/24 04/25/24 distention #20 tabs clonazepam 1 mg tablet 1 mg PO BID #56 tabs 04/09/24 04/25/24 cyclobenzaprine 10 mg tablet 10 mg PO TID PRN muscle spasm #30 04/09/24 04/25/24 tabs polyethylene glycol 3350 17 gram 17 g PO DAILY #100 ea 04/09/24 04/25/24 oral powder packet calcitriol 0.5 mcg capsule 1 mcg PO TID 04/17/24 04/25/24 Previous Rx's ?Medication ?Instructions ?Recorded gabapentin 300 mg capsule 300 mg PO BID #180 caps 06/23/23 omeprazole 40 mg capsule,delayed 40 mg PO DAILY #90 caps 07/21/23 release prochlorperazine maleate 5 mg 5 mg PO TID PRN acute nausea #30 09/06/23 tablet tabs magnesium gluconate 27 mg 13.5 mg (1/2 x 27 mg magnesium 11/21/23 magnesium (500 mg) tablet (500 mg)) PO TID #60 tabs fluoxetine 20 mg capsule 20 mg PO DAILY #60 caps 03/12/24 simethicone 125 mg chewable tablet 125 mg PO QID PRN abdominal 03/12/24 distention #20 tabs clonazepam 1 mg tablet 1 mg PO BID #56 tabs 04/09/24 cyclobenzaprine 10 mg tablet 10 mg PO TID PRN muscle spasm #30 04/09/24 tabs polyethylene glycol 3350 17 gram 17 g PO DAILY #100 ea 04/09/24 oral powder packet Allergies Allergy/AdvReac Type Severity Reaction Status Date / Time codeine Allergy Intermediate pass out Verified 04/25/24 09:43 Penicillins Allergy Skin Rash Verified 04/25/24 09:43 amoxicillin AdvReac Intermediate Nausea Verified 04/25/24 09:43 dextromethorphan (From AdvReac Intermediate got Verified 04/25/24 09:58 NyQuil) really hot and sweaty doxylamine (From NyQuil) AdvReac Intermediate got Verified 04/25/24 09:58 really hot and sweaty pseudoephedrine (From NyQuil) AdvReac Intermediate got Verified 04/25/24 09:58 really hot and sweaty General Stated Complaint: Sorethroat ADRIANA: 4 Review of Systems All systems reviewed & are unremarkable except as noted in HPI and below Exam Narrative Exam Narrative: GENERAL APPEARANCE: Well-nourished, non-toxic, awake and alert, atraumatic, no acute distress. SKIN: Warm, pink, dry, intact, without rashes/lesions/ulcerations. HEAD: Normocephalic, atraumatic, normal hair distribution for gender/age. EYES: Normal conjunctiva, no exudates on lids/lashes. ENT: Nares patent, no circumoral cyanosis, no facial swelling, mild erythema to the posterior oropharynx, no tonsillar exudate, uvula midline, managing secretions well, no trismus, no cervical lymphadenopathy NECK: Supple, trachea midline, painless cervical ROM. LUNGS/CHEST: Lungs CTA bilaterally- no rhonchi/rales/wheezes diffusely, non- labored respirations, normal A/P diameter, symmetrical expansion, no chest wall deformity HEART (CV/PV): Regular rate and rhythm without murmur, no peripheral edema, no JVD. ABDOMEN: Soft, non-distended, no guarding. MSK: Normal ROM, no swelling/deformity to bilateral UEs or LEs, moving all extremities without weakness, no cyanosis, spine midline without tenderness, normal curvature. NEURO: Mental Status AAOx4 - alert to person, place, time, events No facial droop, no forehead involvement. Motor: No focal weakness - strength 5/5 in bilateral UEs and LEs, proximal and distal, symmetric. Sensory: sensation intact to light touch globally. Gait normal: patient ambulated without ataxia into ED room. PSYCH: euthymic, cooperative, pleasant, appropriate speech Course Vital Signs Vital signs: Vital Signs Temperature 36.9 C 04/23/24 18:35 Pulse 111 H 04/23/24 18:35 Respiratory Rate 18 04/23/24 18:35 Blood Pressure 136/68 04/23/24 18:35 Pulse Oximetry 97 04/23/24 18:35 Temperature 36.9 C 04/23/24 18:35 Pulse 111 H 04/23/24 18:35 Respiratory Rate 18 04/23/24 18:35 Respiratory Effort Normal 04/23/24 18:37 Blood Pressure 136/68 04/23/24 18:35 Pulse Oximetry 97 04/23/24 18:35 Pain Level 4 04/23/24 18:35 Lab/Test Results Lab/Test Results: 04/23/24 18:40 Tonsil - Not Specified Group A Streptococcus Culture - Pending POC Strep Test-DEBBY(Rapid) Start: 04/23/24 18:40 Freq: Status: Active Protocol: Document 04/23/24 19:49 HB (Rec: 04/23/24 19:50 HB [id number]) Strep test-DEBBY(Rapid)-POC POC-Strep test-DEBBY (Rapid) Negative POC-Strep test-DEBBY (Rapid) Negative Medical Decision Making This dictation utilizes [id number] dictation software and may contain unedited grammatical errors. 28 year-old male presents to ED today by POV/ambulating with a chief complaint of sore throat with onset 3 days ago. Quality described as hoarse vocal changes, diarrhea, sweating, sore throat, no radiation to cough, neck swelling, dysphagia, trismus, shortness of breaht, vomiting. Severity is described as mild to moderate. Palliating factors include nothing specific attempted. Provoking factors include nothing specific. Patients' medical history: Complex, unrelated. Family and social history: Noncontributory. Pertinent exam findings / vital signs include mild posterior oropharyngeal erythema without exudate, no exudate tongue, no trismus, managing secretions well, no cervical lymphadenopathy. Differential / pathologies of concern include pharyngitis, strep pharyngitis, unlikely upper respiratory infection, not deep space infection. Diagnostic studies of: -Strep culture- negative. Interventions of: -None, recommend tea with honey, APAP/NSAID. ED Course/Assessment/Plan: 28-year-old male presents with sore throat for 3 days, throat appears fairly benign and he has no worrisome symptoms or signs of deep space infection. I counseled him on the waiting strep culture for possible antibiotics but likely just needs time for viral pharyngitis. Recommend therapeutic dosing Tylenol and ibuprofen, tea with honey for symptomatic relief, strict return criteria for worsening vocal changes especially with trismus, neck swelling or stiffness. Findings not consistent with upper respiratory infection, inability to tolerate p.o. intake, deep space infection. Disposition of pharyngitis. Patient verbalized understanding of the plan and return to ED criteria and engaged in shared decision making. Medical Records Medical records reviewed: Yes I reviewed the patient's medical records. Quality:SDOH Health Related Social Needs: Health related social needs transportation insecurity( Z59.82) PFSH All Active Problems (Updated 04/25/24 @ 10:46 by Antoinette Templeton NP) Chest wall pain (Acute) Pharyngitis (Acute) Hypocalcemia (Acute) Left shoulder pain (Acute) IBS (irritable bowel syndrome) (Chronic) Lesion of left [place] kidney (Acute) Right sided abdominal pain (Acute) Hypokalemia (Acute) Nausea and vomiting (Acute) Palpitations (Acute) Pain of right calf (Acute) Obesity (Chronic) Migraine with aura (Acute) Insect bite of leg, right (Acute) Testicle lump (Acute) Hamstring tendinitis of left thigh (Acute) Pes anserine bursitis (Acute) Hypernatremia (Acute) Cervical radiculopathy (Acute) Left-sided Flower's palsy (Acute) Constipation (Acute) Grief reaction (Chronic) Opiate dependence, continuous (Acute) 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 Possible 2' Methadone, Clnzpm (?). Surg eval (+)/No further action. History of electrolyte imbalance (Acute) Neck pain on left side (Acute) with shoulder, upper back pain.. torticollis, radiating into left hip/leg Pulmonary nodule 1 cm or greater in diameter (Chronic) Therapeutic opioid induced constipation (Acute) Sphincter of Oddi dysfunction (Chronic) Abnormal CT scan, kidney (Acute) Intrahepatic bile duct dilation (Acute) Common bile duct dilatation (Chronic) Has been dilated for quite some time, now more-so. Normal LFTs. Known gall stones. Iatrogenic hypocalcemia (Acute) Multiple endocrine neoplasia type I (Chronic) Depression (Chronic) Hypocalcemia (Chronic) Elevated parathyroid hormone (Acute) Family history of coronary arteriosclerosis (Chronic) Father of DE at 50, mother had DE at 42 Severe anxiety with panic (Chronic) Medical History Urinary tract infection CKD (chronic kidney disease) stage 2, GFR 60-89 ml/min GFR 64-65, with Hx FLORESITA and GFR < 45 Primary hyperparathyroidism Complex medical condition Serious electrolyte imbalances, with gynecomastia, possible MEN Dx, CKD and anemia with baseline anxiety and Hx PTSD. Hypocalcemia Anxiety Depression Hyperlipidemia Family history of multiple endocrine neoplasia, type 1 PTSD (post-traumatic stress disorder) Per pt. states no triggers at this time. Surgical History History of laparoscopic cholecystectomy (~11/2023) H/O parathyroidectomy Family History Mother Anxiety Asthma Depression Sister Anxiety Depression Father Cancer lung & stomach Depression Diabetes Hypertension MEN 1 (multiple endocrine neoplasia) Social History Smoking/Tobacco Use Status: Never Smoking risk assessment performed?: Yes Alcohol Intake: never Drug use: Current Sobriety Substance use type: former substance user Adopted: No Caregiver/Support person: No Foster care: No Household members: none Housing: apartment Number of Children: 0 Communication Needs: None Education Level: high school Do you need help understanding health information?: Never current occupation: [employer] Pets and animals: Yes (Ally) Pets and animals: dog(s) Sexually active: No Do you think of yourself as: straight/heterosexual Current gender identity: male What is your relationship status?: How often do you talk on the phone with friends or family?: twice per week How often do you get together with friends or relatives?: never Do you belong to any clubs or organized social groups?: no Panel score (0-1 are the most socially isolated patients): 0 What type of physical activity do you participate in: walking Duration: 15-30 minutes/day Frequency: 5-6 times per week Maryam/Latter Day: Restorationism Special maryam needs: No Seatbelt use: always Helmet use: Yes Helmet use: always Drive intox or ride w/intox electric mule 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
== END 2024-04-23 20:55 | disposition home or self-care (01) ==
PROVIDERS: Emergency Provider Physician Assistant; PCP Family Medicine
DX: J02.9 Acute pharyngitis, unspecified (principal)
CPT/HCPCS: 87880; 99282; 87081; 99283

== ENCOUNTER 2024-04-25 09:35 | Emergency (ER) | payer OTHER, SELFPAY ==
--- NOTE | 2024-04-25 09:30 | RT.EKG_ITS ---
APPROVED REPORT Exam: Resting ECG Reason for Exam: pain in sternum Patient Location: E HR:123 bpm ECG Measurements Heart Rate 123 AXIS NC 121 P 43 QRSd 95 QRS 54 QT 312 T 2 QTc 447 Conclusion Sinus tachycardia...rate> 99 Narrow complex sinus tachycardia at a rate of 123. Normal axis. Intervals within normal limits. T wave flattening in lead III. Poor R wave progression. Poor R wave progression appears new compared to prior dated earlier this month. Low voltage left chest leads appears similar. No acute injury pa ttern.
[2024-04-25 09:38] VITALS: BP 123/66; PULSE 128; RESP 20; O2SAT 97
--- NOTE | 2024-04-25 09:45 | DI.RAD_ITS ---
Exam(s) XR CHEST 2V PA LATERAL EXAM: XR CHEST 2V PA LATERAL CLINICAL HISTORY: Midsternal pain TECHNIQUE: 2D digital imaging was performed of the chest. Two images were obtained. PA and lateral views were obtained. COMPARISON: CR,XR XR CHEST 2V PA LATERAL from 04/10/2024 FINDINGS: MEDIASTINUM: Normal. HEART: Normal. PULMONARY VASCULATURE: Normal. LUNGS: Clear. PLEURAL SPACE: No pleural effusion or pneumothorax. BONE:Within normal limits for the patient's age. The sternum appears grossly unremarkable on the lat eral view. OTHER FINDINGS:Normal. IMPRESSION: No acute pulmonary findings. DATA REPOSITORY: RADIATION DOSE DELIVERED:
--- NOTE | 2024-04-25 09:56 | ED.GENADUL_ITS ---
Discharge Plan Disposition Patient Disposition: Home Condition: Stable Discharge Details Clinical Impression: Chest wall pain Primary Care Provider: Brendon Vivar ED Provider: Antoinette Templeton Home Meds and New Rx's Prescriptions: Continued gabapentin 300 mg capsule 300 mg PO BID Qty: 180 3RF methadone 10 mg/5 mL solution 100 mg PO QAM omeprazole 40 mg capsule,delayed release(DR/EC) 40 mg PO DAILY Qty: 90 3RF simethicone 125 mg tablet,chewable 125 mg PO QID PRN (Reason: abdominal distention) Qty: 20 3RF fluoxetine 20 mg capsule 20 mg PO DAILY Qty: 60 0RF polyethylene glycol 3350 17 gram powder in packet 17 g PO DAILY Qty: 100 1RF cyclobenzaprine 10 mg tablet 10 mg PO TID PRN (Reason: muscle spasm) Qty: 30 3RF clonazepam 1 mg tablet 1 mg PO BID Qty: 56 0RF calcium carbonate [Tums] 200 mg calcium (500 mg) tablet,chewable 2,000 mg PO BID prochlorperazine maleate 5 mg tablet 5 mg PO TID PRN (Reason: acute nausea) Qty: 30 0RF calcitriol 0.5 mcg capsule 1 mcg PO TID magnesium gluconate 27 mg magnesium (500 mg) tablet 13.5 mg PO TID Qty: 60 3RF Discharge Instructions Instructions: Costochondritis, Chest Pain, Adult ED Additional Instructions: Chest x-ray is within normal limits. EKG is unchanged. Please take Tylenol or Ibuprofen with food every 4-6 hours as needed for pain and swelling. May alternate with ice and heat. Return to the ER if you have continued pain, dizziness lightheadedness sweating, shortness of breath, nausea. Follow up with primary care provider in 3-5 days. Return to ED sooner if any worsening or concerns. Referrals: Brendon Vivar DO [Primary Care Provider] - 5 days HPI General Mode of arrival: ambulatory . Date/Time Provider Initiated Documentation: 04/25/24 09:54 . Limitations to Documentation: no limitations . Information obtained by: patient, RN notes reviewed and old records reviewed . HPI Narrative: 28-year-old male who is well-known to the department presents to the ER with a chief complaint of sternal pain with palpation, he also reports some back pain with deep breathing. He states that last week he began with a sore throat and URI type symptoms. Yesterday began with sternal pain with sensitivity to touch and some left upper back pain with deep breathing. He denies any nausea vomiting sweatiness he did take his normal medications this morning. He denies any known injury or heavy lifting. He denies coughing or shortness of breath. He does present slightly tachycardic. Chest pain is reproducible with palpation. Lungs are clear to auscultation bilaterally. Tonsils 1+, posterior oropharynx pink no exudate noted. Related Data Home Medications ?Medication ?Instructions ?Recorded ?Confirmed calcium carbonate (Tums) 2,000 mg PO BID 02/02/23 04/25/24 methadone 10 mg/5 mL oral solution 100 mg PO QAM 06/12/23 04/25/24 gabapentin 300 mg capsule 300 mg PO BID #180 caps 06/23/23 04/25/24 omeprazole 40 mg capsule,delayed 40 mg PO DAILY #90 caps 07/21/23 04/25/24 release prochlorperazine maleate 5 mg 5 mg PO TID PRN acute nausea #30 09/06/23 04/25/24 tablet tabs magnesium gluconate 27 mg 13.5 mg (1/2 x 27 mg magnesium 11/21/23 04/25/24 magnesium (500 mg) tablet (500 mg)) PO TID #60 tabs fluoxetine 20 mg capsule 20 mg PO DAILY #60 caps 03/12/24 04/25/24 simethicone 125 mg chewable tablet 125 mg PO QID PRN abdominal 03/12/24 04/25/24 distention #20 tabs clonazepam 1 mg tablet 1 mg PO BID #56 tabs 04/09/24 04/25/24 cyclobenzaprine 10 mg tablet 10 mg PO TID PRN muscle spasm #30 04/09/24 04/25/24 tabs polyethylene glycol 3350 17 gram 17 g PO DAILY #100 ea 04/09/24 04/25/24 oral powder packet calcitriol 0.5 mcg capsule 1 mcg PO TID 04/17/24 04/25/24 Previous Rx's ?Medication ?Instructions ?Recorded gabapentin 300 mg capsule 300 mg PO BID #180 caps 06/23/23 omeprazole 40 mg capsule,delayed 40 mg PO DAILY #90 caps 07/21/23 release prochlorperazine maleate 5 mg 5 mg PO TID PRN acute nausea #30 09/06/23 tablet tabs magnesium gluconate 27 mg 13.5 mg (1/2 x 27 mg magnesium 11/21/23 magnesium (500 mg) tablet (500 mg)) PO TID #60 tabs fluoxetine 20 mg capsule 20 mg PO DAILY #60 caps 03/12/24 simethicone 125 mg chewable tablet 125 mg PO QID PRN abdominal 03/12/24 distention #20 tabs clonazepam 1 mg tablet 1 mg PO BID #56 tabs 04/09/24 cyclobenzaprine 10 mg tablet 10 mg PO TID PRN muscle spasm #30 04/09/24 tabs polyethylene glycol 3350 17 gram 17 g PO DAILY #100 ea 04/09/24 oral powder packet Allergies Allergy/AdvReac Type Severity Reaction Status Date / Time codeine Allergy Intermediate pass out Verified 04/25/24 09:43 Penicillins Allergy Skin Rash Verified 04/25/24 09:43 amoxicillin AdvReac Intermediate Nausea Verified 04/25/24 09:43 dextromethorphan (From AdvReac Intermediate got Verified 04/25/24 09:58 NyQuil) really hot and sweaty doxylamine (From NyQuil) AdvReac Intermediate got Verified 04/25/24 09:58 really hot and sweaty pseudoephedrine (From NyQuil) AdvReac Intermediate got Verified 04/25/24 09:58 really hot and sweaty General Stated Complaint: Chest Pain ADRIANA: 3 Review of Systems All systems reviewed & are unremarkable except as noted in HPI and below Musculoskeletal Musculoskeletal: Reports as per HPI Exam Narrative Exam Narrative: Constitutional: Alert and oriented x3. Appears stated age. Obese body habitus. Head: Normocephalic, no trauma. Eyes: Pupils PERRL, Red reflex noted, EOM's intact. Eyelids symmetrical without lesions, discharge, or swelling. ENT: Bilateral TM's WNL, External ear normal to inspection, no mastoid TTP, swelling, or erythema, Nasal turbinates WNL, no nasal discharge. Normal dentition, Posterior pharynx WNL, no exudate. Chest: RRR, Normal S1, S2, distal pulses intact. Tenderness with palpation to the distal sternum no crepitus. No step-off. Resp: Lungs clear to auscultation bilaterally, no wheezes, rales, or rhonchi. Abdomen: Soft, non-distended, Normoactive bowel sounds all 4 quads. Musculoskeletal: Normal gait, Moves all 4 extremities without difficulty. Skin: No suspicious rashes or lesions. Capillary refill less than 2 sec. Neurologic: Cranial nerves II-XII intact. Alert and oriented x 3. Motor: No deficits noted. Sensory: Intact bilaterally all 4 extremities. Hematologic/Lymphatic: No ecchymosis, no lymphadenopathy. Course Vital Signs Vital signs: Vital Signs Pulse 128 H 04/25/24 09:38 Respiratory Rate 20 04/25/24 09:38 Blood Pressure 123/66 04/25/24 09:38 Pulse Oximetry 97 04/25/24 09:38 Pulse 128 H 04/25/24 09:38 Respiratory Rate 20 04/25/24 09:38 Respiratory Effort Normal, Non-Labored 04/25/24 09:43 Blood Pressure 123/66 04/25/24 09:38 Blood Pressure Position Sitting 04/25/24 09:38 Pulse Oximetry 97 04/25/24 09:38 Oxygen Delivery Method Room Air 04/25/24 09:38 Oxygen Flow Rate 0 04/25/24 09:38 Medical Decision Making 28-year-old male who is well-known to the department presents to the ER with a chief complaint of sternal pain with palpation, he also reports some back pain with deep breathing. He states that last week he began with a sore throat and URI type symptoms. Yesterday began with sternal pain with sensitivity to touch and some left upper back pain with deep breathing. He denies any nausea vomiting sweatiness he did take his normal medications this morning. He denies any known injury or heavy lifting. He denies coughing or shortness of breath. He does present slightly tachycardic. Chest pain is reproducible with palpation. Lungs are clear to auscultation bilaterally. Tonsils 1+, posterior oropharynx pink no exudate noted. EKG was reviewed by Dr. Wolfe and myself ER attending, old EKG available for review. No significant change. Chest x-ray ordered and ibuprofen 800 mg p.o. Chest x-ray shows no acute pulmonary findings. Sternum appear grossly unremarkable. Due to reproducible pain at this time cardiac workup done, patient has no other associated symptoms including nausea dizziness shortness of breath this does appear to be strictly musculoskeletal however will discuss strict return instructions home care and follow-up care. This text was generated using [employer] system, please disregard any oddities of phrase or misspellings. Medical Records Medical records reviewed: Yes I reviewed the patient's medical records. Quality:SDOH Health Related Social Needs: Health related social needs transportation insecurity( Z59.82) PFSH All Active Problems (Updated 04/25/24 @ 10:46 by Antoinette Templeton NP) Chest wall pain (Acute) Pharyngitis (Acute) Hypocalcemia (Acute) Left shoulder pain (Acute) IBS (irritable bowel syndrome) (Chronic) Lesion of left [place] kidney (Acute) Right sided abdominal pain (Acute) Hypokalemia (Acute) Nausea and vomiting (Acute) Palpitations (Acute) Pain of right calf (Acute) Obesity (Chronic) Migraine with aura (Acute) Insect bite of leg, right (Acute) Testicle lump (Acute) Hamstring tendinitis of left thigh (Acute) Pes anserine bursitis (Acute) Hypernatremia (Acute) Cervical radiculopathy (Acute) Left-sided Flower's palsy (Acute) Constipation (Acute) Grief reaction (Chronic) Opiate dependence, continuous (Acute) 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 Possible 2' Methadone, Clnzpm (?). Surg eval (+)/No further action. History of electrolyte imbalance (Acute) Neck pain on left side (Acute) with shoulder, upper back pain.. torticollis, radiating into left hip/leg Pulmonary nodule 1 cm or greater in diameter (Chronic) Therapeutic opioid induced constipation (Acute) Sphincter of Oddi dysfunction (Chronic) Abnormal CT scan, kidney (Acute) Intrahepatic bile duct dilation (Acute) Common bile duct dilatation (Chronic) Has been dilated for quite some time, now more-so. Normal LFTs. Known gallstones. Iatrogenic hypocalcemia (Acute) Multiple endocrine neoplasia type I (Chronic) Depression (Chronic) Hypocalcemia (Chronic) Elevated parathyroid hormone (Acute) Family history of coronary arteriosclerosis (Chronic) Father of TX at 50, mother had TX at 42 Severe anxiety with panic (Chronic) Medical History Urinary tract infection CKD (chronic kidney disease) stage 2, GFR 60-89 ml/min GFR 64-65, with Hx FLORESITA and GFR < 45 Primary hyperparathyroidism Complex medical condition Serious electrolyte imbalances, with gynecomastia, possible MEN Dx, CKD and anemia with baseline anxiety and Hx PTSD. Hypocalcemia Anxiety Depression Hyperlipidemia Family history of multiple endocrine neoplasia, type 1 PTSD (post-traumatic stress disorder) Per pt. states no triggers at this time. Surgical History History of laparoscopic cholecystectomy (~11/2023) H/O parathyroidectomy Family History Mother Anxiety Asthma Depression Sister Anxiety Depression Father Cancer lung & stomach Depression Diabetes Hypertension MEN 1 (multiple endocrine neoplasia) Social History Smoking/Tobacco Use Status: Never Smoking risk assessment performed?: Yes Alcohol Intake: never Drug use: Current Sobriety Substance use type: former substance user Adopted: No Caregiver/Support person: No Foster care: No Household members: none Housing: apartment Number of Children: 0 Communication Needs: None Education Level: high school Do you need help understanding health information?: Never current occupation: [employer] Pets and animals: Yes (Ally) Pets and animals: dog(s) Sexually active: No Do you think of yourself as: straight/heterosexual Current gender identity: male What is your relationship status?: How often do you talk on the phone with friends or family?: twice per week How often do you get together with friends or relatives?: never Do you belong to any clubs or organized social groups?: no Panel score (0-1 are the most socially isolated patients): 0 What type of physical activity do you participate in: walking Duration: 15-30 minutes/day Frequency: 5-6 times per week Maryam/Christian: Roman Catholic Special maryam needs: No Seatbelt use: always Helmet use: Yes Helmet use: always Drive intox or ride w/intox hyster 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
[2024-04-25] MEDS: Ibuprofen 800 MG TAB PO (10:04)
[2024-04-25 10:55] VITALS: BP 114/71; PULSE 70; RESP 15; RESP 20; O2SAT 92
== END 2024-04-25 11:00 | disposition home or self-care (01) ==
PROVIDERS: Emergency Provider Registered Nurse Emergency; PCP Family Medicine
DX: R07.89 Other chest pain (principal); I12.9 Hypertensive chronic kidney disease with stage 1 through stage 4 chronic kidney disease, or unspecified chronic kidney disease; N18.2 Chronic kidney disease, stage 2 (mild); E89.2 Postprocedural hypoparathyroidism
CPT/HCPCS: 93005; 99284; 71046; 93010; 99283

== ENCOUNTER 2024-05-02 15:28 | Emergency (ER) | payer MEDICAID, SELFPAY ==
[2024-05-02 15:40] VITALS: BP 105/70; PULSE 134; RESP 16; TEMP 37; O2SAT 100
[2024-05-02 16:14] LABS: ALT 20 U/L (16-63); AST 16 U/L (15-37); Albumin 3.1 g/dL (3.4-5.0); Alkaline Phosphatase 205 U/L (46-116); BUN 15 mg/dL (7-18); Bilirubin, Total 0.22 mg/dL (0.2-1.0); CREATININE 1.5 mg/dL (0.70-1.30); Calcium 8.8 mg/dL (8.5-10.1); Chloride 102 mmol/L (98-107); Estimated GFR 63.83 (mL/min/1.73m2); Glucose 90 mg/dL (74-106); Magnesium 1.7 mg/dL (1.8-2.4); Potassium 3.6 mmol/L (3.5-5.1); Sodium 143 mmol/L (136-145); Total Protein 7.7 g/dL (6.4-8.2)
[2024-05-02] MEDS: Ondansetron 4 MG/2 ML VIAL IVP (16:23)
[2024-05-02] MEDS: Calcium Carbonate *TUMS* 500 MG CHEW 1000 MG PO (16:24)
[2024-05-02] MEDS: Dicyclomine 20 MG TAB PO (16:24)
--- NOTE | 2024-05-02 16:30 | RT.EKG_ITS ---
APPROVED REPORT Exam: Resting ECG Reason for Exam: Chest Pain Patient Location: E HR:118 bpm ECG Measurements Heart Rate 118 AXIS MA 174 P 49 QRSd 96 QRS 40 QT 329 T 28 QTc 462 Conclusion Sinus tachycardia...rate> 99 I have reviewed and interpreted ECG and agree with software generated interpretation.
[2024-05-02] MEDS: MAGNESIUM SULFATE 2 GM/50 ML BAG IV_INF (16:59)
--- NOTE | 2024-05-02 17:21 | W.ED.GENAD ---
Discharge Plan Disposition Patient Disposition: Home Condition: Good Discharge Details Chief Complaint: Arrhythmia Clinical Impression: Fatigue, Hypomagnesemia Primary Care Provider: Brendon Vivar ED Provider: Richy Eagle Home Meds and New Rx's Prescriptions: No Action gabapentin 300 mg capsule 300 mg PO BID Qty: 180 3RF methadone 10 mg/5 mL solution 100 mg PO QAM omeprazole 40 mg capsule,delayed release(DR/EC) 40 mg PO DAILY Qty: 90 3RF simethicone 125 mg tablet,chewable 125 mg PO QID PRN (Reason: abdominal distention) Qty: 20 3RF fluoxetine 20 mg capsule 20 mg PO DAILY Qty: 60 0RF polyethylene glycol 3350 17 gram powder in packet 17 g PO DAILY Qty: 100 1RF cyclobenzaprine 10 mg tablet 10 mg PO TID PRN (Reason: muscle spasm) Qty: 30 3RF clonazepam 1 mg tablet 1 mg PO BID Qty: 56 0RF calcium carbonate [Tums] 200 mg calcium (500 mg) tablet,chewable 2,000 mg PO BID prochlorperazine maleate 5 mg tablet 5 mg PO TID PRN (Reason: acute nausea) Qty: 30 0RF calcitriol 0.5 mcg capsule 1 mcg PO TID magnesium gluconate 27 mg magnesium (500 mg) tablet 13.5 mg PO TID Qty: 60 3RF Discharge Instructions Instructions: Hypomagnesemia Additional Instructions: Please continue taking your electrolyte protocols. Please follow-up closely with your scale reclamation tender. If you notice any worsening of your symptoms, or any new symptoms such as vomiting, diarrhea, fever, chills, shortness of breath, chest pain, numbness, weakness, or fainting , please return immediately to the emergency department for reevaluation. Please follow up with your primary care provider as soon as possible for reassessment and reevaluation. As always, it was a pleasure participating in your medical care today. Referrals: Brendon Vivar DO [Primary Care Provider] - HPI General Date/Time Provider Initiated Documentation: 05/02/24 15:29. HPI Narrative: This is a 28-year-old male with a past medical history significant for anxiety, depression, high cholesterol, men type I, multiple electrolyte abnormalities with [place] [facility] [place] PTSD, GERD, cholecystectomy 12/07. In regards to his electrolytes, at this time he has recently had his calcitriol increased from 1 mcg twice daily to 1 mcg in the morning, and 2 mcg at night. Additionally he takes 2000 mg of calcium daily, and 500 mg of magnesium twice daily. Patient presents today for evaluation of feeling unwell as is usually the case when his electrolytes are abnormal. He states that for the last day or 2 he has had a mild headache, nausea, achiness and weakness. He denies any fever. He denies any vomiting. He denies any other complaints. Related Data Home Medications ?Medication ?Instructions ?Recorded ?Confirmed calcium carbonate (Tums) 2,000 mg PO BID 02/02/23 05/02/24 methadone 10 mg/5 mL oral solution 100 mg PO QAM 06/12/23 05/02/24 gabapentin 300 mg capsule 300 mg PO BID #180 caps 06/23/23 05/02/24 omeprazole 40 mg capsule,delayed 40 mg PO DAILY #90 caps 07/21/23 05/02/24 release prochlorperazine maleate 5 mg 5 mg PO TID PRN acute nausea #30 09/06/23 05/02/24 tablet tabs magnesium gluconate 27 mg 13.5 mg (1/2 x 27 mg magnesium 11/21/23 05/02/24 magnesium (500 mg) tablet (500 mg)) PO TID #60 tabs fluoxetine 20 mg capsule 20 mg PO DAILY #60 caps 03/12/24 05/02/24 simethicone 125 mg chewable tablet 125 mg PO QID PRN abdominal 03/12/24 05/02/24 distention #20 tabs clonazepam 1 mg tablet 1 mg PO BID #56 tabs 04/09/24 05/02/24 cyclobenzaprine 10 mg tablet 10 mg PO TID PRN muscle spasm #30 04/09/24 05/02/24 tabs polyethylene glycol 3350 17 gram 17 g PO DAILY #100 ea 04/09/24 05/02/24 oral powder packet calcitriol 0.5 mcg capsule 1 mcg PO TID 04/17/24 05/02/24 Previous Rx's ?Medication ?Instructions ?Recorded gabapentin 300 mg capsule 300 mg PO BID #180 caps 06/23/23 omeprazole 40 mg capsule,delayed 40 mg PO DAILY #90 caps 07/21/23 release prochlorperazine maleate 5 mg 5 mg PO TID PRN acute nausea #30 09/06/23 tablet tabs magnesium gluconate 27 mg 13.5 mg (1/2 x 27 mg magnesium 11/21/23 magnesium (500 mg) tablet (500 mg)) PO TID #60 tabs fluoxetine 20 mg capsule 20 mg PO DAILY #60 caps 03/12/24 simethicone 125 mg chewable tablet 125 mg PO QID PRN abdominal 03/12/24 distention #20 tabs clonazepam 1 mg tablet 1 mg PO BID #56 tabs 04/09/24 cyclobenzaprine 10 mg tablet 10 mg PO TID PRN muscle spasm #30 04/09/24 tabs polyethylene glycol 3350 17 gram 17 g PO DAILY #100 ea 04/09/24 oral powder packet Allergies Allergy/AdvReac Type Severity Reaction Status Date / Time codeine Allergy Intermediate pass out Verified 05/02/24 15:36 Penicillins Allergy Skin Rash Verified 05/02/24 15:36 amoxicillin AdvReac Intermediate Nausea Verified 05/02/24 15:36 dextromethorphan (From AdvReac Intermediate got Verified 05/02/24 15:36 NyQuil) really hot and sweaty doxylamine (From NyQuil) AdvReac Intermediate got Verified 05/02/24 15:36 really hot and sweaty pseudoephedrine (From NyQuil) AdvReac Intermediate got Verified 05/02/24 15:36 really hot and sweaty General Stated Complaint: Arrhythmia ADRIANA: 3 Review of Systems All systems reviewed & are unremarkable except as noted in HPI and below Exam Narrative Exam Narrative: 1.Const: Well-nourished, Well-developed, appearing stated age 2.Eyes: PERRL, no conjunctival injection, and symmetrical lids. 3.ENT: Atraumatic external nose and ears. Moist MM. Neck: Symmetric, trachea midline, No thyromegaly. 4.CVS: +S1/S2, Peripheral pulses 2+ and equal in all extremities. Brisk capillary refill in all extremities. 5.RESP: Unlabored respiratory effort. Clear to auscultation bilaterally. No wheezes rales or rhonchi 6.GI: Soft, Nontender/Nondistended, No hepatosplenomegaly. No guarding or rebound. 7.MSK: Normocephalic/Atraumatic, Extremities w/o deformity or ttp No cyanosis or clubbing, Normal movement of all extremities. Negative Chvostek & Trousseau sign. 8.Skin: Warm, Dry. No rashes or lesions. 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 Sensation grossly intact, no focal neurologic deficits. 10.Psych: (AAO) x3. Appropriate mood and affect Course Vital Signs Vital signs: Vital Signs Temperature 37.0 C 05/02/24 15:40 Pulse 134 H 05/02/24 15:40 Respiratory Rate 16 05/02/24 15:40 Blood Pressure 105/70 05/02/24 15:40 Pulse Oximetry 100 05/02/24 15:40 Temperature 37.0 C 05/02/24 15:40 Temperature Source Oral 05/02/24 15:40 Pulse 134 H 05/02/24 15:40 Respiratory Rate 16 05/02/24 15:40 Respiratory Effort Normal, Non-Labored 05/02/24 15:55 Blood Pressure 105/70 05/02/24 15:40 Blood Pressure Position Sitting 05/02/24 15:40 Pulse Oximetry 100 05/02/24 15:40 Oxygen Delivery Method Room Air 05/02/24 15:40 Oxygen Flow Rate 0 05/02/24 15:40 Pain Level 4 05/02/24 15:40 Lab/Test Results Lab/Test Results: Laboratory Tests Range/Units 05/02/24 15:54 Sodium (136-145) mmol/L 143 Potassium (3.5-5.1) mmol/L 3.6 Chloride (98-107) mmol/L 102 Carbon Dioxide (21.0-32.0) mmol/L 34.0 H Anion Gap (3-11) mmol/L 7.0 BUN (7-18) mg/dL 15 Creatinine (0.70-1.30) mg/dL 1.5 H Est GFR (CKD-EPI 2020) (mL/min/1.73m2) 63.83 Glucose (74-106) mg/dL 90 Calcium (8.5-10.1) mg/dL 8.8 Magnesium (1.8-2.4) mg/dL 1.7 L Total Bilirubin (0.2-1.0) mg/dL 0.22 AST (15-37) U/L 16 ALT (16-63) U/L 20 Alkaline Phosphatase (46-116) U/L 205 H Total Protein (6.4-8.2) g/dL 7.7 Albumin (3.4-5.0) g/dL 3.1 L Medical Decision Making This is a 28-year-old male with a past medical history significant for anxiety, depression, high cholesterol, men type I, multiple electrolyte abnormalities with [place] [facility] [place], GERD, cholecystectomy 12/07. In regards to his electrolytes, at this time he has recently had his calcitriol increased from 1 mcg twice daily to 1 mcg in the morning, and 2 mcg at night. Additionally he takes 2000 mg of calcium daily, and 500 mg of magnesium twice daily. Patient presents today for evaluation of feeling unwell as is usually the case when his electrolytes are abnormal. He states that for the last day or 2 he has had a mild headache, nausea, achiness and weakness. He denies any fever. He denies any vomiting. He denies any other complaints. Physical exam demonstrates a well-appearing male, no significant reflex abnormalities. Negative Chvostic or Trousseau sign. Patient does subjectively feel unwell. Will evaluate for electrolyte abnormality, start oral rehydration. Give a dose of Bentyl and a GI cocktail to help with his current upset stomach. Monitor closely and reassess. 6:32 PM On reassessment patient is feeling better. Laboratory workup has returned, patient has slightly low magnesium, calcium is normal. After medications patient feels much better. Potassium levels normal. Renal function stable. Patient was given 2 g of magnesium. He tolerated this well. Patient remains hemodynamically stable. Patient stable for discharge. Discussed red flags for which to return. I have extensively reviewed the treatment plan and discharge instructions with the patient. I have addressed all patient concerns at this time. The patient was made aware of what symptoms to monitor for that would warrant a return to the emergency department. Discussed the plan with the patient, they demonstrate verbal understanding and agreement with our assessment and plan at this time. The documentation in this chart was dictated using Etherpad dictation software. Please excuse any dictation errors. Quality:SDOH Health Related Social Needs: Health related social needs transportation insecurity(Z59.82) PFSH All Active Problems (Updated 05/02/24 @ 18:35 by Richy Eagle DO) Hypomagnesemia (Acute) Fatigue (Acute) Chest wall pain (Acute) Pharyngitis (Acute) Hypocalcemia (Acute) Left shoulder pain (Acute) IBS (irritable bowel syndrome) (Chronic) Lesion of left 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 Possible 2' Methadone, Clnzpm (?). Surg eval (+)/No further action. History of electrolyte imbalance (Acute) Neck pain on left side (Acute) with shoulder, upper back pain.. torticollis, radiating into left hip/leg Pulmonary nodule 1 cm or greater in diameter (Chronic) Therapeutic opioid induced constipation (Acute) Sphincter of Oddi dysfunction (Chronic) Abnormal CT scan, kidney (Acute) Intrahepatic bile duct dilation (Acute) Common bile duct dilatation (Chronic) Has been dilated for quite some time, now more-so. Normal LFTs. Known gallstones. Iatrogenic hypocalcemia (Acute) Multiple endocrine neoplasia type I (Chronic) Depression (Chronic) Hypocalcemia (Chronic) Elevated parathyroid hormone (Acute) Family history of coronary arteriosclerosis (Chronic) Father of NM at 50, mother had NM at 42 Severe anxiety with panic (Chronic) Medical History Urinary tract infection CKD (chronic kidney disease) stage 2, GFR 60-89 ml/min GFR 64-65, with Hx FLORESITA and GFR < 45 Primary hyperparathyroidism Complex medical condition Serious electrolyte imbalances, with gynecomastia, possible MEN Dx, CKD and anemia with baseline anxiety and Hx PTSD. Hypocalcemia Anxiety Depression Hyperlipidemia Family history of multiple endocrine neoplasia, type 1 PTSD (post-traumatic stress disorder) Per pt. states no triggers at this time. Surgical History History of laparoscopic cholecystectomy (~11/2023) H/O parathyroidectomy Family History Mother Anxiety Asthma Depression Sister Anxiety Depression Father Cancer lung & stomach Depression Diabetes Hypertension MEN 1 (multiple endocrine neoplasia) Social History Smoking/Tobacco Use Status: Never Smoking risk assessment performed?: Yes Alcohol Intake: never Drug use: Current Sobriety Substance use type: former substance user, crack/cocaine, heroin and painkillers Details: stopped using substances for the passed 4 years Adopted: No Caregiver/Support person: No Foster care: No Household members: none Housing: apartment Number of Children: 0 Communication Needs: None Education Level: high school Do you need help understanding health information?: Never 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[employer] Pets and animals: Yes (Ally) Pets and animals: dog(s) Sexually active: No Do you think of yourself as: straight/heterosexual Current gender identity: male What is your relationship status?: How often do you talk on the phone with friends or family?: twice per week How often do you get together with friends or relatives?: never Do you belong to any clubs or organized social groups?: no Panel score (0-1 are the most socially isolated patients): 0 What type of physical activity do you participate in: walking Duration: 15-30 minutes/day Frequency: 5-6 times per week Maryam/Anabaptism: Faith Special maryam needs: No Seatbelt use: always Helmet use: Yes Helmet use: always Drive intox or ride w/intox jitney 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
[2024-05-02 18:52] VITALS: BP 116/58; PULSE 116; RESP 18; O2SAT 95
== END 2024-05-02 18:51 | disposition home or self-care (01) ==
PROVIDERS: Emergency Provider Student in an Organized Health Care Education/Training Program; PCP Family Medicine
DX: R00.0 Tachycardia, unspecified (principal); E83.42 Hypomagnesemia; R53.83 Other fatigue; E89.2 Postprocedural hypoparathyroidism; E78.5 Hyperlipidemia, unspecified; N18.2 Chronic kidney disease, stage 2 (mild)
CPT/HCPCS: 80053; 93005; 96365; 96366; 96375; 99284; 83735; 93010; J2405; J3475

== ENCOUNTER 2024-05-07 15:37 | Emergency (ER) | payer OTHER, SELFPAY ==
[2024-05-07 15:42] VITALS: BP 113/71; PULSE 123; RESP 16; TEMP 36.6; O2SAT 97
--- NOTE | 2024-05-07 15:45 | DI.US_ITS ---
Exam(s) US LOWER EXTREMITY VENOUS RT EXAM: US LOWER EXTREMITY VENOUS RT CLINICAL HISTORY: lump where prior clot was R calf, its circled. TECHNIQUE: Lower extremity venous ultrasound performed using grayscale, color-flow, and spectral Do ppler analysis. COMPARISON: No exams were available for comparison FINDINGS: The common femoral, femoral and popliteal veins demonstrate normal compressibility, augmentation, and color Doppler. The posterior tibial veins are patent. No saphenous vein thrombosis or other superfi cial venous thrombosis is seen. No hematoma or Almanza's cyst is seen. IMPRESSION: Negative lower extremity ultrasound. No evidence of DVT. DATA REPOSITORY:
--- NOTE | 2024-05-07 15:48 | W.ED.GENAD ---
Discharge Plan Disposition Patient Disposition: Home Condition: Stable Discharge Details Clinical Impression: Right calf pain Primary Care Provider: Brendon Vivar ED Provider: Richy Oakes Home Meds and New Rx's Prescriptions: Continued gabapentin 300 mg capsule 300 mg PO BID Qty: 180 3RF methadone 10 mg/5 mL solution 100 mg PO QAM omeprazole 40 mg capsule,delayed release(DR/EC) 40 mg PO DAILY Qty: 90 3RF simethicone 125 mg tablet,chewable 125 mg PO QID PRN (Reason: abdominal distention) Qty: 20 3RF fluoxetine 20 mg capsule 20 mg PO DAILY Qty: 60 0RF polyethylene glycol 3350 17 gram powder in packet 17 g PO DAILY Qty: 100 1RF cyclobenzaprine 10 mg tablet 10 mg PO TID PRN (Reason: muscle spasm) Qty: 30 3RF clonazepam 1 mg tablet 1 mg PO BID Qty: 56 0RF calcium carbonate [Tums] 200 mg calcium (500 mg) tablet,chewable 2,000 mg PO BID prochlorperazine maleate 5 mg tablet 5 mg PO TID PRN (Reason: acute nausea) Qty: 30 0RF calcitriol 0.5 mcg capsule 1 mcg PO TID magnesium gluconate 27 mg magnesium (500 mg) tablet 13.5 mg PO TID Qty: 60 3RF Discharge Instructions Instructions: Leg Pain (ED) Additional Instructions: You were seen in the emergency department for the pain of your right calf, there is no blood clot in your leg, this is likely musculoskeletal pain, try having some [id number] Voltaren gel on the area, perform stretching exercises for your calf muscles. Please return for any unilateral leg swelling with skin changes, with medial thigh tenderness or any other emergent concerns Referrals: Brendon Vivar DO [Primary Care Provider] - Discharge Data Discharge Date/Time-TO BE ENTERED AT DEPARTURE: 05/07/24 16:49 HPI General Date/Time Provider Initiated Documentation: 05/07/24 15:48. HPI Narrative: 28 year-old male presents to ED today by POV/ambulating with a chief complaint of lump on the back of his distal R calf where he had a prior clot with onset noted for the past 3 days. Quality described as small painful lump, has it traced in pen, no radiation to unilateral leg swelling, skin changes, medial thigh pain, fever, redness, purulent drainage, gross fluctuant local swelling. Severity is described as moderate. Palliating factors include nothing specific attempted. Provoking factors include nothing specific. Patient not anticoagulated. Related Data Home Medications ?Medication ?Instructions ?Recorded ?Confirmed calcium carbonate (Tums) 2,000 mg PO BID 02/02/23 05/07/24 methadone 10 mg/5 mL oral solution 100 mg PO QAM 06/12/23 05/07/24 gabapentin 300 mg capsule 300 mg PO BID #180 caps 06/23/23 05/07/24 omeprazole 40 mg capsule,delayed 40 mg PO DAILY #90 caps 07/21/23 05/07/24 release prochlorperazine maleate 5 mg 5 mg PO TID PRN acute nausea #30 09/06/23 05/07/24 tablet tabs magnesium gluconate 27 mg 13.5 mg (1/2 x 27 mg magnesium 11/21/23 05/07/24 magnesium (500 mg) tablet (500 mg)) PO TID #60 tabs fluoxetine 20 mg capsule 20 mg PO DAILY #60 caps 03/12/24 05/07/24 simethicone 125 mg chewable tablet 125 mg PO QID PRN abdominal 03/12/24 05/07/24 distention #20 tabs clonazepam 1 mg tablet 1 mg PO BID #56 tabs 04/09/24 05/07/24 cyclobenzaprine 10 mg tablet 10 mg PO TID PRN muscle spasm #30 04/09/24 05/07/24 tabs polyethylene glycol 3350 17 gram 17 g PO DAILY #100 ea 04/09/24 05/07/24 oral powder packet calcitriol 0.5 mcg capsule 1 mcg PO TID 04/17/24 05/07/24 Previous Rx's ?Medication ?Instructions ?Recorded gabapentin 300 mg capsule 300 mg PO BID #180 caps 06/23/23 omeprazole 40 mg capsule,delayed 40 mg PO DAILY #90 caps 07/21/23 release prochlorperazine maleate 5 mg 5 mg PO TID PRN acute nausea #30 09/06/23 tablet tabs magnesium gluconate 27 mg 13.5 mg (1/2 x 27 mg magnesium 11/21/23 magnesium (500 mg) tablet (500 mg)) PO TID #60 tabs fluoxetine 20 mg capsule 20 mg PO DAILY #60 caps 03/12/24 simethicone 125 mg chewable tablet 125 mg PO QID PRN abdominal 03/12/24 distention #20 tabs clonazepam 1 mg tablet 1 mg PO BID #56 tabs 04/09/24 cyclobenzaprine 10 mg tablet 10 mg PO TID PRN muscle spasm #30 04/09/24 tabs polyethylene glycol 3350 17 gram 17 g PO DAILY #100 ea 04/09/24 oral powder packet Allergies Allergy/AdvReac Type Severity Reaction Status Date / Time codeine Allergy Intermediate pass out Verified 05/07/24 15:44 Penicillins Allergy Skin Rash Verified 05/07/24 15:44 amoxicillin AdvReac Intermediate Nausea Verified 05/07/24 15:44 dextromethorphan (From AdvReac Intermediate got Verified 05/07/24 15:44 NyQuil) really hot and sweaty doxylamine (From NyQuil) AdvReac Intermediate got Verified 05/07/24 15:44 really hot and sweaty pseudoephedrine (From NyQuil) AdvReac Intermediate got Verified 05/07/24 15:44 really hot and sweaty General Stated Complaint: Vascular ADRIANA: 3 Review of Systems All systems reviewed & are unremarkable except as noted in HPI and below Exam Narrative Exam Narrative: GENERAL APPEARANCE: Well-nourished, non-toxic, awake and alert, atraumatic, no acute distress. SKIN: Warm, pink, dry, intact, without rashes/lesions/ulcerations. HEAD: Normocephalic, atraumatic, normal hair distribution for gender/age. EYES: Normal conjunctiva, no exudates on lids/lashes. ENT: Nares patent, no circumoral cyanosis, no facial swelling NECK: Supple, trachea midline, painless cervical ROM. LUNGS/CHEST: Non-labored respirations, normal A/P diameter, symmetrical expansion, no chest wall deformity HEART (CV/PV): Regular rate, R dorsalis pedis pulse 2+, no peripheral edema, no JVD. ABDOMEN: Soft, non-distended, no guarding. MSK: Normal ROM, no swelling/deformity to bilateral UEs or LEs, moving all extremities without weakness, no cyanosis, spine midline without tenderness, normal curvature, small 0.25cm palpable nodule, could be a knot in muscle, in the distal right calf muscle, Homans negative NEURO: Mental Status AAOx4 - alert to person, place, time, events No facial droop, no forehead involvement. Motor: No focal weakness - strength 5/5 in bilateral UEs and LEs, proximal and distal, symmetric. Sensory: sensation intact to light touch globally. Gait normal: patient ambulated without ataxia into ED room. PSYCH: euthymic, cooperative, pleasant, appropriate speech Course Vital Signs Vital signs: Vital Signs Temperature 36.6 C 05/07/24 15:42 Pulse 123 H 05/07/24 15:42 Respiratory Rate 16 05/07/24 15:42 Blood Pressure 113/71 05/07/24 15:42 Pulse Oximetry 97 05/07/24 15:42 Temperature 36.6 C 05/07/24 15:42 Temperature Source Oral 05/07/24 15:42 Pulse 123 H 05/07/24 15:42 Respiratory Rate 16 05/07/24 15:42 Blood Pressure 113/71 05/07/24 15:42 Blood Pressure Position Sitting 05/07/24 15:42 Pulse Oximetry 97 05/07/24 15:42 Oxygen Delivery Method Room Air 05/07/24 15:42 Oxygen Flow Rate 0 05/07/24 15:42 Pain Level 4 05/07/24 15:42 Medical Decision Making This dictation utilizes [id number] dictation software and may contain unedited grammatical errors. 28 year-old male presents to ED today by POV/ambulating with a chief complaint of lump on the back of his distal R calf where he had a prior clot with onset noted for the past 3 days. Quality described as small painful lump, has it traced in pen, no radiation to unilateral leg swelling, skin changes, medial thigh pain, fever, redness, purulent drainage, gross fluctuant local swelling. Severity is described as moderate. Palliating factors include nothing specific attempted. Provoking factors include nothing specific. Patients' medical history: Complex medical history including high anxiety over conditions. Family and social history: Noncontributory. Pertinent exam findings / vital signs include neurovascularly intact in the right lower extremity without unilateral calf swelling or skin changes, as it tiny little nodule in the distal calf muscle, do not suspect superficial thrombophlebitis, Homans negative. Differential / pathologies of concern include cyst, muscle knot, unlikely clot. Diagnostic studies of: -US right LE DVT study-negative for any DVT. Interventions of: -None. ED Course/Assessment/Plan: 28-year-old male, well-known to the ED presents with small tender nodule at his distal right calf muscle where he states he has had a clot prior, he has no other findings to suggest clot pathology, he is not on blood thinners I did perform ultrasound which was negative, I counseled him on symptomatic relief of musculoskeletal pains, strict return criteria for any emergent concerns. Findings not consistent with DVT, superficial thrombophlebitis, abscess. Disposition of right calf pain. Patient verbalized understanding of the plan and return to ED criteria and engaged in shared decision making. Medical Records Medical records reviewed: Yes I reviewed the patient's medical records. Imaging Data Radiologic Study: Attestation: I personally reviewed and interpreted this imaging study as follows: Imaging: Ultrasound Radiologist's impression: EXAM: US LOWER EXTREMITY VENOUS RT CLINICAL HISTORY: lump where prior clot was R calf, its circled. TECHNIQUE: Lower extremity venous ultrasound performed using grayscale, color-flow, and spectral Doppler analysis. COMPARISON: No exams were available for comparison FINDINGS: The common femoral, femoral and popliteal veins demonstrate normal compressibility, augmentation, and color Doppler. The posterior tibial veins are patent. No saphenous vein thrombosis or other superficial venous thrombosis is seen. No hematoma or Almanza's cyst is seen. IMPRESSION: Negative lower extremity ultrasound. No evidence of DVT. Quality:SDOH Health Related Social Needs: Health related social needs transportation insecurity(Z59.82) PFSH All Active Problems (Updated 05/07/24 @ 16:39 by ANDREW Coleman) Right calf pain (Acute) Hypomagnesemia (Acute) Fatigue (Acute) Chest wall pain (Acute) Pharyngitis (Acute) Hypocalcemia (Acute) Left shoulder pain (Acute) IBS (irritable bowel syndrome) (Chronic) Lesion of left [place] kidney (Acute) Right sided abdominal pain (Acute) Pain of right calf (Acute) Obesity (Chronic) Migraine with aura (Acute) Insect bite of leg, right (Acute) Testicle lump (Acute) Hamstring tendinitis of left thigh (Acute) Pes anserine bursitis (Acute) Hypernatremia (Acute) Cervical radiculopathy (Acute) Left-sided Flower's palsy (Acute) Constipation (Acute) Grief reaction (Chronic) Opiate dependence, continuous (Acute) 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 Possible 2' Methadone, Clnzpm (?). Surg eval (+)/No further action. History of electrolyte imbalance (Acute) Neck pain on left side (Acute) with shoulder, upper back pain.. torticollis, radiating into left hip/leg Pulmonary nodule 1 cm or greater in diameter (Chronic) Therapeutic opioid induced constipation (Acute) Sphincter of Oddi dysfunction (Chronic) Abnormal CT scan, kidney (Acute) Intrahepatic bile duct dilation (Acute) Common bile duct dilatation (Chronic) Has been dilated for quite some time, now more-so. Normal LFTs. Known gallstones. Iatrogenic hypocalcemia (Acute) Multiple endocrine neoplasia type I (Chronic) Depression (Chronic) Hypocalcemia (Chronic) Elevated parathyroid hormone (Acute) Family history of coronary arteriosclerosis (Chronic) Father of MT at 50, mother had MT at 42 Severe anxiety with panic (Chronic) Medical History Urinary tract infection CKD (chronic kidney disease) stage 2, GFR 60-89 ml/min GFR 64-65, with Hx FLORESITA and GFR < 45 Primary hyperparathyroidism Complex medical condition Serious electrolyte imbalances, with gynecomastia, possible MEN Dx, CKD and anemia with baseline anxiety and Hx PTSD. Hypocalcemia Anxiety Depression Hyperlipidemia Family history of multiple endocrine neoplasia, type 1 PTSD (post-traumatic stress disorder) Per pt. states no triggers at this time. Surgical History History of laparoscopic cholecystectomy (~11/2023) H/O parathyroidectomy Family History Mother Anxiety Asthma Depression Sister Anxiety Depression Father Cancer lung & stomach Depression Diabetes Hypertension MEN 1 (multiple endocrine neoplasia) Social History Smoking/Tobacco Use Status: Never Smoking risk assessment performed?: Yes Alcohol Intake: never Drug use: Current Sobriety Substance use type: former substance user, crack/cocaine, heroin and painkillers Details: stopped using substances for the passed 4 years Adopted: No Caregiver/Support person: No Foster care: No Household members: none Housing: apartment Number of Children: 0 Communication Needs: None Education Level: high school Do you need help understanding health information?: Never current occupation: [employer] Pets and animals: Yes (Ally) Pets and animals: dog(s) Sexually active: No Do you think of yourself as: straight/heterosexual Current gender identity: male What is your relationship status?: How often do you talk on the phone with friends or family?: twice per week How often do you get together with friends or relatives?: never Do you belong to any clubs or organized social groups?: no Panel score (0-1 are the most socially isolated patients): 0 What type of physical activity do you participate in: walking Duration: 15-30 minutes/day Frequency: 5-6 times per week Maryam/Rastafari: Episcopal Special maryam needs: No Seatbelt use: always Helmet use: Yes Helmet use: always Drive intox or ride w/intox parts 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
--- NOTE | 2024-05-07 16:53 | DI.VRAD_ITS ---
PROCEDURE INFORMATION: Exam: US Duplex Right Lower Extremity Veins, Limited Exam date and time: 05/07/2024 4:04 PM Age: 28 years old Clinical indication: Other: Lump where prior clot was R calf, its circled TECHNIQUE: Imaging protocol: Real-time duplex ultrasound of the right extremity with 2-D sexton scale, color Doppler flow and spectral waveform analysis including responses to compression and other maneuvers (when performed) with image documentation. Limited exam was focused on the right lower extremity veins. COMPARISON: US LOWER EXTREMITY VENOUS RT 02/25/2024 12:04 PM FINDINGS: Right deep veins: Unremarkable. The common femoral, femoral, proximal profunda femoral and popliteal veins are patent without thrombus. Normal Doppler waveforms. Normal compressibility and/or augmentation response. Superficial veins: Greater saphenous vein at the saphenofemoral junction is patent without thrombus. Soft tissues: Where the patient is palpating an abnormality within the right posterior mid calf there is no sonographic evidence of any abnormality. There is no evidence of a mass or thrombophlebitis. IMPRESSION: No evidence of deep vein thrombosis. Dictated and Authenticated by: Aquilino Bach MD. Ordering:RAMANA Lockhart MD
== END 2024-05-07 16:49 | disposition home or self-care (01) ==
PROVIDERS: Emergency Provider Physician Assistant; PCP Family Medicine
DX: M79.661 Pain in right lower leg (principal); Z86.718 Personal history of other venous thrombosis and embolism; Z59.82 Transportation insecurity
CPT/HCPCS: 99284; 93971; 99283

== ENCOUNTER 2024-05-08 16:47 | Emergency (ER) | payer OTHER, SELFPAY ==
--- NOTE | 2024-05-08 16:45 | RT.EKG_ITS ---
APPROVED REPORT Exam: Resting ECG Reason for Exam: sob Patient Location: E HR:120 bpm ECG Measurements Heart Rate 120 AXIS KS 160 P 51 QRSd 105 QRS 113 QT 319 T -18 QTc 451 Conclusion Sinus tachycardia 120 no change from prior no stemi
[2024-05-08 16:48] VITALS: BP 129/84; PULSE 121; RESP 22; TEMP 36.3; O2SAT 96
--- NOTE | 2024-05-08 17:00 | DI.RAD_ITS ---
Exam(s) XR CHEST 2V PA LATERAL EXAM: XR CHEST 2V PA LATERAL CLINICAL HISTORY: chest pain. TECHNIQUE: 2D digital imaging was performed. COMPARISON: CR XR CHEST 2V PA LATERAL from 04/25/2024 FINDINGS: 2 views: Heart size is normal. The mediastinum is not widened. Lungs are clear. No infiltrates nor pleural effusions. IMPRESSION: No acute pulmonary findings. DATA REPOSITORY: RADIATION DOSE DELIVERED:
[2024-05-08 17:26] LABS: Abs Immature Grans 0.03 10^3/uL (0.0-0.06); Absolute Basophil Count 0.05 10^3/uL (0.0-0.2); Absolute Eosinophil Count 0.15 10^3/uL (0.0-0.7); Absolute Lymphocyte Count 1.54 10^3/uL (1.2-3.4); Absolute Neutrophil Count 5.08 10^3/uL (1.2-6.7); Basophils % 0.7 %; HCT 34.3 % (40.0-50.0); HGB 10.9 g/dL (13.5-17.5); Immature Grans % 0.4 %; Lymphocytes % 20.1 %; MCH 27.7 pg (27.0-33.0); MCHC 31.8 % (32.0-36.0); MCV 87 fL (80-95); MPV 9.5 fL (8.0-11.0); Monocytes % 10.5 %; Neutrophils % 66.3 %; Platelet Count 355 10^3/uL (130-400); RBC 3.94 10^6/uL (4.36-5.78); RDW 14.2 % (11.8-14.1); RDW-SD 44.4 fL; WBC 7.65 10^3/uL (4.4-10.8)
[2024-05-08 17:49] LABS: ALT 29 U/L (16-63); AST 20 U/L (15-37); Albumin 3.1 g/dL (3.4-5.0); Alkaline Phosphatase 206 U/L (46-116); Anion Gap 5.8 mmol/L (3-11); BUN 13 mg/dL (7-18); Bilirubin, Total 0.18 mg/dL (0.2-1.0); CO2 33.2 mmol/L (21.0-32.0); CREATININE 1.5 mg/dL (0.70-1.30); Calcium 8.9 mg/dL (8.5-10.1); Chloride 103 mmol/L (98-107); Estimated GFR 63.83 (mL/min/1.73m2); Glucose 101 mg/dL (74-106); Magnesium 1.8 mg/dL (1.8-2.4); NT-proBNP 13 pg/mL (<300); Potassium 3.7 mmol/L (3.5-5.1); Sodium 142 mmol/L (136-145); Total Protein 7.9 g/dL (6.4-8.2)
[2024-05-08 17:50] LABS: Troponin I < 4 ng/L (<or=76)
[2024-05-08 18:02] VITALS: RESP 18
[2024-05-08 18:05] VITALS: BP 126/67; PULSE 87; RESP 18; O2SAT 95
--- NOTE | 2024-05-08 18:10 | ED.GENADUL_ITS ---
Discharge Plan Disposition Patient Disposition: Home Discharge Details Clinical Impression: Chest pain Primary Care Provider: Brendon Vivar ED Provider: Jeovany Elias Home Meds and New Rx's Prescriptions: No Action gabapentin 300 mg capsule 300 mg PO BID Qty: 180 3RF methadone 10 mg/5 mL solution 100 mg PO QAM omeprazole 40 mg capsule,delayed release(DR/EC) 40 mg PO DAILY Qty: 90 3RF simethicone 125 mg tablet,chewable 125 mg PO QID PRN (Reason: abdominal distention) Qty: 20 3RF fluoxetine 20 mg capsule 20 mg PO DAILY Qty: 60 0RF polyethylene glycol 3350 17 gram powder in packet 17 g PO DAILY Qty: 100 1RF cyclobenzaprine 10 mg tablet 10 mg PO TID PRN (Reason: muscle spasm) Qty: 30 3RF clonazepam 1 mg tablet 1 mg PO BID Qty: 56 0RF calcium carbonate [Tums] 200 mg calcium (500 mg) tablet,chewable 2,000 mg PO BID prochlorperazine maleate 5 mg tablet 5 mg PO TID PRN (Reason: acute nausea) Qty: 30 0RF calcitriol 0.5 mcg capsule 1 mcg PO TID magnesium gluconate 27 mg magnesium (500 mg) tablet 13.5 mg PO TID Qty: 60 3RF Discharge Instructions Instructions: Chest Pain (DC) Additional Instructions: EKG and blood work are within normal limits Discharge Data Discharge Date/Time-TO BE ENTERED AT DEPARTURE: 05/08/24 18:16 HPI General Date/Time Provider Initiated Documentation: 05/08/24 16:54 . Limitations to Documentation: no limitations . Information obtained by: patient and old records reviewed . HPI Narrative: 28-year-old gentleman with multiple medical comorbidities including anxiety, methadone dependence, MEN presents for evaluation of left-sided chest pain. He reports that he just had Thanksgiving dinner with his family and was driving home. He states that while driving he started to feel a sharp shooting pain on the left side of his chest that started in the upper part of his chest and went from top to bottom. He states that it occurred a few times. Bed because of the pain and it started to make him feel very anxious so he tried to take some deep breaths. He states that the pain started to go down his arm and that made him feel more scared. He denies any shortness of breath, but reports that he has pain with taking a deep breath so he is avoiding doing so. Related Data Home Medications ?Medication ?Instructions ?Recorded ?Confirmed calcium carbonate (Tums) 2,000 mg PO BID 02/02/23 05/08/24 methadone 10 mg/5 mL oral solution 100 mg PO QAM 06/12/23 05/08/24 gabapentin 300 mg capsule 300 mg PO BID #180 caps 06/23/23 05/08/24 omeprazole 40 mg capsule,delayed 40 mg PO DAILY #90 caps 07/21/23 05/08/24 release prochlorperazine maleate 5 mg 5 mg PO TID PRN acute nausea #30 09/06/23 05/08/24 tablet tabs magnesium gluconate 27 mg 13.5 mg (1/2 x 27 mg magnesium 11/21/23 05/08/24 magnesium (500 mg) tablet (500 mg)) PO TID #60 tabs fluoxetine 20 mg capsule 20 mg PO DAILY #60 caps 03/12/24 05/08/24 simethicone 125 mg chewable tablet 125 mg PO QID PRN abdominal 03/12/24 05/08/24 distention #20 tabs clonazepam 1 mg tablet 1 mg PO BID #56 tabs 04/09/24 05/08/24 cyclobenzaprine 10 mg tablet 10 mg PO TID PRN muscle spasm #30 04/09/24 05/08/24 tabs polyethylene glycol 3350 17 gram 17 g PO DAILY #100 ea 04/09/24 05/08/24 oral powder packet calcitriol 0.5 mcg capsule 1 mcg PO TID 04/17/24 05/08/24 Previous Rx's ?Medication ?Instructions ?Recorded gabapentin 300 mg capsule 300 mg PO BID #180 caps 06/23/23 omeprazole 40 mg capsule,delayed 40 mg PO DAILY #90 caps 07/21/23 release prochlorperazine maleate 5 mg 5 mg PO TID PRN acute nausea #30 09/06/23 tablet tabs magnesium gluconate 27 mg 13.5 mg (1/2 x 27 mg magnesium 11/21/23 magnesium (500 mg) tablet (500 mg)) PO TID #60 tabs fluoxetine 20 mg capsule 20 mg PO DAILY #60 caps 03/12/24 simethicone 125 mg chewable tablet 125 mg PO QID PRN abdominal 03/12/24 distention #20 tabs clonazepam 1 mg tablet 1 mg PO BID #56 tabs 04/09/24 cyclobenzaprine 10 mg tablet 10 mg PO TID PRN muscle spasm #30 04/09/24 tabs polyethylene glycol 3350 17 gram 17 g PO DAILY #100 ea 04/09/24 oral powder packet Allergies Allergy/AdvReac Type Severity Reaction Status Date / Time codeine Allergy Intermediate pass out Verified 05/08/24 16:52 Penicillins Allergy Skin Rash Verified 05/08/24 16:52 amoxicillin AdvReac Intermediate Nausea Verified 05/08/24 16:52 dextromethorphan (From AdvReac Intermediate got Verified 05/08/24 16:52 NyQuil) really hot and sweaty doxylamine (From NyQuil) AdvReac Intermediate got Verified 05/08/24 16:52 really hot and sweaty pseudoephedrine (From NyQuil) AdvReac Intermediate got Verified 05/08/24 16:52 really hot and sweaty General Stated Complaint: SOB/SuddenOnset ADRIANA: 2 Exam Narrative Exam Narrative: Review of Systems: All systems reviewed & are unremarkable except as noted in HPI and below Well-developed, no acute distress NCAT PERRL, normal conjunctiva Tachycardia no murmur, no chest wall tenderness Unlabored respiratory effort, clear bilaterally Nondistended abdomen, soft nontender Extremities w/o deformity, no cyanosis, no edema No rashes or lesions. no focal neurologic deficits Appropriate mood and affect Course Vital Signs Vital signs: Vital Signs Temperature 36.3 C L 05/08/24 16:48 Pulse 121 H 05/08/24 16:48 Respiratory Rate 22 05/08/24 16:48 Blood Pressure 129/84 05/08/24 16:48 Pulse Oximetry 96 05/08/24 16:48 Temperature 36.3 C L 05/08/24 16:48 Temperature Source Oral 05/08/24 16:48 Pulse 87 05/08/24 18:05 Respiratory Rate 18 05/08/24 18:05 Respiratory Effort Normal, Non-Labored 05/08/24 18:05 Respiratory Depth Normal 05/08/24 18:05 Respiratory Pattern Normal 05/08/24 18:05 Blood Pressure 126/67 05/08/24 18:05 Blood Pressure Mean 86 05/08/24 18:05 Blood Pressure Position Sitting 05/08/24 18:05 Pulse Oximetry 95 05/08/24 18:05 Oxygen Delivery Method Room Air 05/08/24 18:05 Oxygen Flow Rate 0 05/08/24 18:05 Pain Level 3 05/08/24 16:48 Lab/Test Results Lab/Test Results: Laboratory Tests Range/Units 05/08/24 17:19 WBC (4.4-10.8) 10^3/uL 7.65 RBC (4.36-5.78) 10^6/uL 3.94 L Hgb (13.5-17.5) g/dL 10.9 L Hct (40.0-50.0) % 34.3 L MCV (80-95) fL 87 MCH (27.0-33.0) pg 27.7 MCHC (32.0-36.0) % 31.8 L RDW (11.8-14.1) % 14.2 H Plt Count (130-400) 10^3/uL 355 MPV (8.0-11.0) fL 9.5 Immature Gran % % 0.4 Neutrophils % % 66.3 Lymphocytes % % 20.1 Monocytes % % 10.5 Eosinophils % % 2.0 Basophils % % 0.7 Nucleated RBC % (0.0-0.3) % 0.0 Absolute Neutrophils (1.2-6.7) 10^3/uL 5.08 Absolute Lymphocytes (1.2-3.4) 10^3/uL 1.54 Absolute Monocytes (0.1-0.8) 10^3/uL 0.80 Absolute Eosinophils (0.0-0.7) 10^3/uL 0.15 Absolute Basophils (0.0-0.2) 10^3/uL 0.05 Sodium (136-145) mmol/L 142 Potassium (3.5-5.1) mmol/L 3.7 Chloride (98-107) mmol/L 103 Carbon Dioxide (21.0-32.0) mmol/L 33.2 H Anion Gap (3-11) mmol/L 5.8 BUN (7-18) mg/dL 13 Creatinine (0.70-1.30) mg/dL 1.5 H Est GFR (CKD-EPI 2020) (mL/min/1.73m2) 63.83 Glucose (74-106) mg/dL 101 Calcium (8.5-10.1) mg/dL 8.9 Magnesium (1.8-2.4) mg/dL 1.8 Total Bilirubin (0.2-1.0) mg/dL 0.18 L AST (15-37) U/L 20 ALT (16-63) U/L 29 Alkaline Phosphatase (46-116) U/L 206 H Troponin I (<or=76) ng/L < 4 NT-Pro-B Natriuret Pep (<300) pg/mL 13 Total Protein (6.4-8.2) g/dL 7.9 Albumin (3.4-5.0) g/dL 3.1 L Medical Decision Making Emergent evaluation of left-sided chest pain. The patient has multiple medical comorbidities and does visit the emergency department frequently. His EKG demonstrates sinus tachycardia without change from prior. He is always tachycardic. He has no reproducible chest pain and his symptoms per his report has improved significantly. Triage reports on his arrival he did appear to have some pallor and diaphoresis but on my evaluation this seems to have resolved. He does not have a history of blood clot as reported in the triage note. He was recently evaluated for this, but did not have a lower extremity clot. Initial differential includes anxiety musculoskeletal pain, doubt pneumothorax, doubt ACS. Lab work was reviewed. He has stable anemia at baseline. No leukocytosis. Potassium magnesium and calcium levels are all within normal limits. His troponin is undetectable. His creatinine has been at the higher side of the normal spectrum for some time. And this should be observed with his lab work that is obtained frequently in the emergency department. I encouraged him to stay very hydrated at home. His chest x-ray was reviewed and indepen dently interpreted: No focal consolidation, normal heart size, no pulmonary edema or pleural effusion I do not feel additional emergent workup is indicated at this time the patient reports his symptoms have resolved. Return precautions advised. Recommend close follow-up with PCP. Quality:SDOH Health Related Social Needs: 2 Health related social needs transportation insecurity( Z59.82) PFSH All Active Problems Chest pain (Acute) Right calf pain (Acute) Hypomagnesemia (Acute) Fatigue (Acute) Chest wall pain (Acute) Pharyngitis (Acute) Hypocalcemia (Acute) Left shoulder pain (Acute) IBS (irritable bowel syndrome) (Chronic) Pain of right calf (Acute) Obesity (Chronic) Migraine with aura (Acute) Insect bite of leg, right (Acute) Testicle lump (Acute) Hamstring tendinitis of left thigh (Acute) Pes anserine bursitis (Acute) Hypernatremia (Acute) Cervical radiculopathy (Acute) Left-sided Flower's palsy (Acute) Constipation (Acute) Grief reaction (Chronic) Opiate dependence, continuous (Acute) 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 Possible 2' Methadone, Clnzpm (?). Surg eval (+)/No further action. History of electrolyte imbalance (Acute) Neck pain on left side (Acute) with shoulder, upper back pain.. torticollis, radiating into left hip/leg Pulmonary nodule 1 cm or greater in diameter (Chronic) Therapeutic opioid induced constipation (Acute) Sphincter of Oddi dysfunction (Chronic) Abnormal CT scan, kidney (Acute) Intrahepatic bile duct dilation (Acute) Common bile duct dilatation (Chronic) Has been dilated for quite some time, now more-so. Normal LFTs. Known gallstones. Iatrogenic hypocalcemia (Acute) Multiple endocrine neoplasia type I (Chronic) Depression (Chronic) Hypocalcemia (Chronic) Elevated parathyroid hormone (Acute) Family history of coronary arteriosclerosis (Chronic) Father of DC at 50, mother had DC at 42 Severe anxiety with panic (Chronic) Medical History Urinary tract infection CKD (chronic kidney disease) stage 2, GFR 60-89 ml/min GFR 64-65, with Hx FLORESITA and GFR < 45 Primary hyperparathyroidism Complex medical condition Serious electrolyte imbalances, with gynecomastia, possible MEN Dx, CKD and anemia with baseline anxiety and Hx PTSD. Hypocalcemia Anxiety Depression Hyperlipidemia Family history of multiple endocrine neoplasia, type 1 PTSD (post-traumatic stress disorder) Per pt. states no triggers at this time. Surgical History History of laparoscopic cholecystectomy (~11/2023) H/O parathyroidectomy Family History Mother Anxiety Asthma Depression Sister Anxiety Depression Father Cancer lung & stomach Depression Diabetes Hypertension MEN 1 (multiple endocrine neoplasia) Social History Smoking/Tobacco Use Status: Never Smoking risk assessment performed?: Yes Alcohol Intake: never Drug use: Current Sobriety Substance use type: former substance user, crack/cocaine, heroin and painkillers Details: stopped using substances for the passed 4 years Adopted: No Caregiver/Support person: No Foster care: No Household members: none Housing: apartment Number of Children: 0 Communication Needs: None Education Level: high school Do you need help understanding health information?: Never current occupation: [employer] Pets and animals: Yes (Ally) Pets and animals: dog(s) Sexually active: No Do you think of yourself as: straight/heterosexual Current gender identity: male What is your relationship status?: How often do you talk on the phone with friends or family?: twice per week How often do you get together with friends or relatives?: never Do you belong to any clubs or organized social groups?: no Panel score (0-1 are the most socially isolated patients): 0 What type of physical activity do you participate in: walking Duration: 15-30 minutes/day Frequency: 5-6 times per week Maryam/Confucianism: Amish Special maryam needs: No Seatbelt use: always Helmet use: Yes Helmet use: always Drive 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
--- NOTE | 2024-05-08 18:47 | DI.VRAD_ITS ---
PROCEDURE INFORMATION: Exam: XR Chest Exam date and time: 05/08/2024 5:23 PM Age: 28 years old Clinical indication: Pain; Radiating TECHNIQUE: Imaging protocol: Radiologic exam of the chest. Views: 2 views. COMPARISON: CR XR CHEST 2V PA LATERAL 04/25/2024 10:21 AM FINDINGS: Lungs: Unremarkable. No consolidation. Pleural spaces: Unremarkable. No pleural effusion. No pneumothorax. Heart/Mediastinum: Unremarkable. No cardiomegaly. Bones/joints: Unremarkable. IMPRESSION: No acute findings. Dictated and Authenticated by: Ricardo Casper MD. Ordering:[facility] Jada Tapia MD
== END 2024-05-08 18:16 | disposition home or self-care (01) ==
PROVIDERS: Emergency Provider Emergency Medicine; PCP Family Medicine
DX: R06.02 Shortness of breath (principal); R07.9 Chest pain, unspecified; N18.2 Chronic kidney disease, stage 2 (mild); E78.5 Hyperlipidemia, unspecified; R00.1 Bradycardia, unspecified; E89.2 Postprocedural hypoparathyroidism
CPT/HCPCS: 36415; 80053; 93005; 99285; 71046; 83735; 83880; 84484; 85025; 93010; 99284

== ENCOUNTER 2024-05-15 06:39 | Emergency (ER) | payer OTHER, SELFPAY ==
[2024-05-15 06:41] VITALS: BP 129/86; PULSE 127; RESP 17; TEMP 36.8; O2SAT 98
[2024-05-15 06:46] VITALS: BP 129/86; PULSE 127; RESP 17; TEMP 36.8; O2SAT 98
--- NOTE | 2024-05-15 07:39 | ED.GENADUL_ITS ---
Discharge Plan Disposition Patient Disposition: Home Discharge Details Clinical Impression: Acute pain of left foot, Cough, URI (upper respiratory infection) Primary Care Provider: Brendon Vivar ED Provider: Jeovany Elias Home Meds and New Rx's Prescriptions: New promethazine 6.25 mg/5 mL syrup 12.5 mg PO Q6H PRN (Reason: cough) Qty: 120 0RF No Action gabapentin 300 mg capsule 300 mg PO BID Qty: 180 3RF methadone 10 mg/5 mL solution 100 mg PO QAM omeprazole 40 mg capsule,delayed release(DR/EC) 40 mg PO DAILY Qty: 90 3RF simethicone 125 mg tablet,chewable 125 mg PO QID PRN (Reason: abdominal distention) Qty: 20 3RF fluoxetine 20 mg capsule 20 mg PO DAILY Qty: 60 0RF polyethylene glycol 3350 17 gram powder in packet 17 g PO DAILY Qty: 100 1RF cyclobenzaprine 10 mg tablet 10 mg PO TID PRN (Reason: muscle spasm) Qty: 30 3RF clonazepam 1 mg tablet 1 mg PO BID Qty: 44 0RF calcium carbonate [Tums] 200 mg calcium (500 mg) tablet,chewable 2,000 mg PO BID prochlorperazine maleate 5 mg tablet 5 mg PO TID PRN (Reason: acute nausea) Qty: 30 0RF calcitriol 0.5 mcg capsule 1 mcg PO TID magnesium gluconate 27 mg magnesium (500 mg) tablet 13.5 mg PO TID Qty: 60 3RF Discharge Instructions Instructions: Cough, runny nose, and the common cold Additional Instructions: * COVID and flu testing are negative today. You likely have a different virus that is causing your cough and upper respiratory symptoms. Please start Mucinex [id number]. This will help thin your mucus and improve your cough. * A prescription for Phenergan syrup was sent to the pharmacy. This will help with your cough as well * Make sure you are drinking plenty of fluids * Your left foot does not show signs of a bony injury or infection. This could be muscle cramp or a charley horse. Please take some Motrin throughout the day and if symptoms worsen return for reevaluation. HPI General Date/Time Provider Initiated Documentation: 05/15/24 07:31 . Limitations to Documentation: no limitations . Information obtained by: patient and old records reviewed . HPI Narrative: 28-year-old gentleman with multiple medical comorbidities and frequent emergency department visits presents for evaluation of 4 days of cough and URI symptoms. Reports that his mom recently had pneumonia. Denies any fever or shortness of breath. Reports cough worse at nighttime, productive of some thick mucus. Is not a smoker. Has not tried any [id number] medications. Is having some mild nasal congestion as well. He reports that around 2 AM he also became very concerned about some pain in his left foot. He reports that he is got some tenderness on the inner aspect of his upper ankle that started in his foot. He reports that his foot feels a little tingly, but is not numb. He is not having any pain or difficulty with walking. Related Data Home Medications ?Medication ?Instructions ?Recorded ?Confirmed calcium carbonate (Tums) 2,000 mg PO BID 02/02/23 05/15/24 methadone 10 mg/5 mL oral solution 100 mg PO QAM 06/12/23 05/15/24 gabapentin 300 mg capsule 300 mg PO BID #180 caps 06/23/23 05/15/24 omeprazole 40 mg capsule,delayed 40 mg PO DAILY #90 caps 07/21/23 05/15/24 release prochlorperazine maleate 5 mg 5 mg PO TID PRN acute nausea #30 09/06/23 05/15/24 tablet tabs magnesium gluconate 27 mg 13.5 mg (1/2 x 27 mg magnesium 11/21/23 05/15/24 magnesium (500 mg) tablet (500 mg)) PO TID #60 tabs fluoxetine 20 mg capsule 20 mg PO DAILY #60 caps 03/12/24 05/15/24 simethicone 125 mg chewable tablet 125 mg PO QID PRN abdominal 03/12/24 05/15/24 distention #20 tabs cyclobenzaprine 10 mg tablet 10 mg PO TID PRN muscle spasm #30 04/09/24 05/15/24 tabs polyethylene glycol 3350 17 gram 17 g PO DAILY #100 ea 04/09/24 05/15/24 oral powder packet calcitriol 0.5 mcg capsule 1 mcg PO TID 04/17/24 05/15/24 clonazepam 1 mg tablet 1 mg PO BID #44 tabs 05/11/24 05/15/24 promethazine 6.25 mg/5 mL oral 12.5 mg (10 mL) PO Q6H PRN cough 05/15/24 syrup #120 mL Previous Rx's ?Medication ?Instructions ?Recorded gabapentin 300 mg capsule 300 mg PO BID #180 caps 06/23/23 omeprazole 40 mg capsule,delayed 40 mg PO DAILY #90 caps 07/21/23 release prochlorperazine maleate 5 mg 5 mg PO TID PRN acute nausea #30 09/06/23 tablet tabs magnesium gluconate 27 mg 13.5 mg (1/2 x 27 mg magnesium 11/21/23 magnesium (500 mg) tablet (500 mg)) PO TID #60 tabs fluoxetine 20 mg capsule 20 mg PO DAILY #60 caps 03/12/24 simethicone 125 mg chewable tablet 125 mg PO QID PRN abdominal 03/12/24 distention #20 tabs cyclobenzaprine 10 mg tablet 10 mg PO TID PRN muscle spasm #30 04/09/24 tabs polyethylene glycol 3350 17 gram 17 g PO DAILY #100 ea 04/09/24 oral powder packet clonazepam 1 mg tablet 1 mg PO BID #44 tabs 05/11/24 promethazine 6.25 mg/5 mL oral 12.5 mg (10 mL) PO Q6H PRN cough 05/15/24 syrup #120 mL Allergies Allergy/AdvReac Type Severity Reaction Status Date / Time codeine Allergy Intermediate pass out Verified 05/15/24 06:48 Penicillins Allergy Skin Rash Verified 05/15/24 06:48 amoxicillin AdvReac Intermediate Nausea Verified 05/15/24 06:48 dextromethorphan (From AdvReac Intermediate got Verified 05/15/24 06:48 NyQuil) really hot and sweaty doxylamine (From NyQuil) AdvReac Intermediate got Verified 05/15/24 06:48 really hot and sweaty pseudoephedrine (From NyQuil) AdvReac Intermediate got Verified 05/15/24 06:48 really hot and sweaty General Stated Complaint: RespSymp ADRIANA: 3 Exam Narrative Exam Narrative: Review of Systems: All systems reviewed & are unremarkable except as noted in HPI and below Well-developed, no acute distress NCAT PERRL, normal conjunctiva Oropharynx clear Tachycardic Unlabored respiratory effort, no tachypnea or hypoxia, clear breath sounds bilaterally Extremities w/o deformity, no cyanosis, no edema no focal neurologic deficits + Anxious Course Vital Signs Vital signs: Vital Signs Temperature 36.8 C 05/15/24 06:41 Pulse 127 H 05/15/24 06:41 Respiratory Rate 17 05/15/24 06:41 Blood Pressure 129/86 05/15/24 06:41 Pulse Oximetry 98 05/15/24 06:41 Temperature 36.8 C 05/15/24 06:46 Pulse 127 H 05/15/24 06:46 Respiratory Rate 17 05/15/24 06:46 Respiratory Effort Non-Labored, Short of Breath 05/15/24 06:47 Respiratory Depth Normal 05/15/24 06:47 Blood Pressure 129/86 05/15/24 06:46 Blood Pressure Position Sitting 05/15/24 06:46 Pulse Oximetry 98 05/15/24 06:46 Oxygen Delivery Method Room Air 05/15/24 06:46 Oxygen Flow Rate 0 05/15/24 06:46 Pain Level 2 05/15/24 06:46 Medical Decision Making Evaluation of 2 complaints. #1: Cough and URI symptoms. COVID and flu testing are negative. Have a low suspicion for pneumonia given his clinical appearance. He was tachycardic, but the patient has persistent tachycardia at every emergency department visit. I do not suspect that this is contributing or symptom of his clinical process today. I will prescribe Phenergan syrup for cough. Advised starting Mucinex [id number] to help with URI symptoms. Return precautions advised including fever, worsening cough or shortness of breath. #2: His foot. He reports that he has swelling and pain in his left foot though there is no swelling appreciable on examination. There is no calf tenderness or deformity noted. There is no overlying skin change. His sensation is grossly intact as well as to strength. \He denies any trauma. I suspect that this may be perhaps a charley horse or other muscular symptom. I do not feel that he needs a DVT evaluation or other x-ray imaging. I recommend Motrin and monitoring symptoms, if they persist, he should return for reevaluation. Quality:SDOH Health Related Social Needs: Health related social needs transportation insecurity( Z59.82) PFSH All Active Problems URI (upper respiratory infection) (Acute) Cough (Acute) Acute pain of left foot (Acute) Chest pain (Acute) Right calf pain (Acute) Hypomagnesemia (Acute) Fatigue (Acute) Chest wall pain (Acute) Pharyngitis (Acute) Hypocalcemia (Acute) IBS (irritable bowel syndrome) (Chronic) Pain of right calf (Acute) Obesity (Chronic) Migraine with aura (Acute) Insect bite of leg, right (Acute) Testicle lump (Acute) Hamstring tendinitis of left thigh (Acute) Pes anserine bursitis (Acute) Hypernatremia (Acute) Cervical radiculopathy (Acute) Left-sided Flower's palsy (Acute) Constipation (Acute) Grief reaction (Chronic) Opiate dependence, continuous (Acute) 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 Possible 2' Methadone, Clnzpm (?). Surg eval (+)/No further action. History of electrolyte imbalance (Acute) Neck pain on left side (Acute) with shoulder, upper back pain.. torticollis, radiating into left hip/leg Pulmonary nodule 1 cm or greater in diameter (Chronic) Therapeutic opioid induced constipation (Acute) Sphincter of Oddi dysfunction (Chronic) Abnormal CT scan, kidney (Acute) Intrahepatic bile duct dilation (Acute) Common bile duct dilatation (Chronic) Has been dilated for quite some time, now more-so. Normal LFTs. Known gallstones. Iatrogenic hypocalcemia (Acute) Multiple endocrine neoplasia type I (Chronic) Depression (Chronic) Hypocalcemia (Chronic) Elevated parathyroid hormone (Acute) Family history of coronary arteriosclerosis (Chronic) Father of IA at 50, mother had IA at 42 Severe anxiety with panic (Chronic) Medical History Urinary tract infection CKD (chronic kidney disease) stage 2, GFR 60-89 ml/min GFR 64-65, with Hx FLORESITA and GFR < 45 Primary hyperparathyroidism Complex medical condition Serious electrolyte imbalances, with gynecomastia, possible MEN Dx, CKD and anemia with baseline anxiety and Hx PTSD. Hypocalcemia Anxiety Depression Hyperlipidemia Family history of multiple endocrine neoplasia, type 1 PTSD (post-traumatic stress disorder) Per pt. states no triggers at this time. Surgical History History of laparoscopic cholecystectomy (~11/2023) H/O parathyroidectomy Family History Mother Anxiety Asthma Depression Sister Anxiety Depression Father Cancer lung & stomach Depression Diabetes Hypertension MEN 1 (multiple endocrine neoplasia) Social History Smoking/Tobacco Use Status: Never Smoking risk assessment performed?: Yes Alcohol Intake: never Drug use: Current Sobriety Substance use type: former substance user, crack/cocaine, heroin and painkillers Details: stopped using substances for the passed 4 years Adopted: No Caregiver/Support person: No Foster care: No Household members: none Housing: apartment Number of Children: 0 Communication Needs: None Education Level: high school Do you need help understanding health information?: Never 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[employer] Pets and animals: Yes (Ally) Pets and animals: dog(s) Sexually active: No Do you think of yourself as: straight/heterosexual Current gender identity: male What is your relationship status?: How often do you talk on the phone with friends or family?: twice per week How often do you get together with friends or relatives?: never Do you belong to any clubs or organized social groups?: no Panel score (0-1 are the most socially isolated patients): 0 What type of physical activity do you participate in: walking Duration: 15-30 minutes/day Frequency: 5-6 times per week Maryam/Zoroastrianism: Jain Special maryam needs: No Seatbelt use: always Helmet use: Yes Helmet use: always Drive intox or ride w/intox electric train 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
== END 2024-05-15 07:39 | disposition home or self-care (01) ==
PROVIDERS: Emergency Provider Emergency Medicine; PCP Family Medicine
DX: J06.9 Acute upper respiratory infection, unspecified (principal); R05.1 Acute cough; M79.672 Pain in left foot; Z59.82 Transportation insecurity
CPT/HCPCS: 99283

== ENCOUNTER 2024-05-18 18:08 | Emergency (ER) | payer OTHER, SELFPAY ==
--- NOTE | 2024-05-18 18:00 | RT.EKG_ITS ---
APPROVED REPORT Exam: Resting ECG Reason for Exam: chest pain Patient Location: E HR:120 bpm ECG Measurements Heart Rate 120 AXIS ID 159 P 48 QRSd 97 QRS 58 QT 327 T 37 QTc 462 Conclusion Sinus tachycardia 120 normal sinus no change from prior
[2024-05-18 18:09] VITALS: BP 121/84; PULSE 123; RESP 20; TEMP 36.4; O2SAT 97
[2024-05-18 18:38] VITALS: PULSE 106; RESP 17; O2SAT 94
[2024-05-18 18:40] VITALS: PULSE 100; RESP 16; O2SAT 95
--- NOTE | 2024-05-18 18:49 | ED.GENADUL_ITS ---
Discharge Plan Disposition Patient Disposition: Home Condition: Stable Discharge Details Clinical Impression: Tingling Primary Care Provider: Brendon Vivar ED Provider: Antoinette Templeton Home Meds and New Rx's Prescriptions: Continued gabapentin 300 mg capsule 300 mg PO BID Qty: 180 3RF methadone 10 mg/5 mL solution 100 mg PO QAM omeprazole 40 mg capsule,delayed release(DR/EC) 40 mg PO DAILY Qty: 90 3RF simethicone 125 mg tablet,chewable 125 mg PO QID PRN (Reason: abdominal distention) Qty: 20 3RF fluoxetine 20 mg capsule 20 mg PO DAILY Qty: 60 0RF polyethylene glycol 3350 17 gram powder in packet 17 g PO DAILY Qty: 100 1RF cyclobenzaprine 10 mg tablet 10 mg PO TID PRN (Reason: muscle spasm) Qty: 30 3RF clonazepam 1 mg tablet 1 mg PO BID Qty: 44 0RF calcium carbonate [Tums] 200 mg calcium (500 mg) tablet,chewable 2,000 mg PO BID prochlorperazine maleate 5 mg tablet 5 mg PO TID PRN (Reason: acute nausea) Qty: 30 0RF calcitriol 0.5 mcg capsule 1 mcg PO TID magnesium gluconate 27 mg magnesium (500 mg) tablet 13.5 mg PO TID Qty: 60 3RF promethazine 6.25 mg/5 mL syrup 12.5 mg PO Q6H PRN (Reason: cough) Qty: 120 0RF Discharge Instructions Instructions: Paresthesia (DC) Additional Instructions: This time your calcium is 8.7 and magnesium is 1.8. These are on the lower end but are still within normal limits. Please discuss with your primary care doctor a may be more routine lab check as this will alleviate a lot of anxiety and ER visits in the future. EKG was within normal limits. I Follow up with primary care provider in 3-5 days. Return to ED sooner if any worsening or concerns. Referrals: Brendon Vivar DO [Primary Care Provider] - 5 days HPI General Mode of arrival: ambulatory . Date/Time Provider Initiated Documentation: 05/18/24 18:11 . Limitations to Documentation: no limitations . Information obtained by: patient, RN notes reviewed and old records reviewed . HPI Narrative: 28-year-old male who is well-known to the department presents to the ER with tingly fingers, KEYSHAWN buccal tingling and toe tingling for the last 4 days. He states this is similar to when his magnesium and calcium get low. He does have a past medical history of parathyroidectomy, anxiety, chronic kidney disease, depression PTSD. He also reports palpitations. Related Data Home Medications ?Medication ?Instructions ?Recorded ?Confirmed calcium carbonate (Tums) 2,000 mg PO BID 02/02/23 05/18/24 methadone 10 mg/5 mL oral solution 100 mg PO QAM 06/12/23 05/18/24 gabapentin 300 mg capsule 300 mg PO BID #180 caps 06/23/23 05/18/24 omeprazole 40 mg capsule,delayed 40 mg PO DAILY #90 caps 07/21/23 05/18/24 release prochlorperazine maleate 5 mg 5 mg PO TID PRN acute nausea #30 09/06/23 05/18/24 tablet tabs magnesium gluconate 27 mg 13.5 mg (1/2 x 27 mg magnesium 11/21/23 05/18/24 magnesium (500 mg) tablet (500 mg)) PO TID #60 tabs fluoxetine 20 mg capsule 20 mg PO DAILY #60 caps 03/12/24 05/18/24 simethicone 125 mg chewable tablet 125 mg PO QID PRN abdominal 03/12/24 05/18/24 distention #20 tabs cyclobenzaprine 10 mg tablet 10 mg PO TID PRN muscle spasm #30 04/09/24 05/18/24 tabs polyethylene glycol 3350 17 gram 17 g PO DAILY #100 ea 04/09/24 05/18/24 oral powder packet calcitriol 0.5 mcg capsule 1 mcg PO TID 04/17/24 05/18/24 clonazepam 1 mg tablet 1 mg PO BID #44 tabs 05/11/24 05/18/24 promethazine 6.25 mg/5 mL oral 12.5 mg (10 mL) PO Q6H PRN cough 05/15/24 05/18/24 syrup #120 mL Previous Rx's ?Medication ?Instructions ?Recorded gabapentin 300 mg capsule 300 mg PO BID #180 caps 06/23/23 omeprazole 40 mg capsule,delayed 40 mg PO DAILY #90 caps 07/21/23 release prochlorperazine maleate 5 mg 5 mg PO TID PRN acute nausea #30 09/06/23 tablet tabs magnesium gluconate 27 mg 13.5 mg (1/2 x 27 mg magnesium 11/21/23 magnesium (500 mg) tablet (500 mg)) PO TID #60 tabs fluoxetine 20 mg capsule 20 mg PO DAILY #60 caps 03/12/24 simethicone 125 mg chewable tablet 125 mg PO QID PRN abdominal 03/12/24 distention #20 tabs cyclobenzaprine 10 mg tablet 10 mg PO TID PRN muscle spasm #30 04/09/24 tabs polyethylene glycol 3350 17 gram 17 g PO DAILY #100 ea 04/09/24 oral powder packet clonazepam 1 mg tablet 1 mg PO BID #44 tabs 05/11/24 promethazine 6.25 mg/5 mL oral 12.5 mg (10 mL) PO Q6H PRN cough 05/15/24 syrup #120 mL Allergies Allergy/AdvReac Type Severity Reaction Status Date / Time codeine Allergy Intermediate pass out Verified 05/18/24 18:14 Penicillins Allergy Skin Rash Verified 05/18/24 18:14 amoxicillin AdvReac Intermediate Nausea Verified 05/18/24 18:14 dextromethorphan (From AdvReac Intermediate got Verified 05/18/24 18:14 NyQuil) really hot and sweaty doxylamine (From NyQuil) AdvReac Intermediate got Verified 05/18/24 18:14 really hot and sweaty pseudoephedrine (From NyQuil) AdvReac Intermediate got Verified 05/18/24 18:14 really hot and sweaty General Stated Complaint: Chest Pain ADRIANA: 3 Review of Systems All systems reviewed & are unremarkable except as noted in HPI and below Cardiovascular Cardiovascular: Reports rapid heart rate and Reports palpitations Musculoskeletal Musculoskeletal: Reports tingling Neurologic Neurologic: Reports as per HPI and Reports tingling Endocrine Endocrine: Reports palpitations Exam Const General: cooperative and well groomed Nutritional Appearance: obese Orientation: alert, awake and oriented x3 Resp Effort & Inspection: normal respiratory effort and able to speak in complete sentences Auscultation: clear to auscultation bilaterally Cardio Rate: regular rate Rhythm: regular rhythm Heart Sounds: S1 normal and S2 normal Course Vital Signs Vital signs: Vital Signs Temperature 36.4 C 05/18/24 18:09 Pulse 123 H 12/03/24 18:09 Respiratory Rate 20 05/18/24 18:09 Blood Pressure 121/84 05/18/24 18:09 Pulse Oximetry 97 05/18/24 18:09 Temperature 36.4 C 05/18/24 18:09 Pulse 123 H 05/18/24 18:09 Respiratory Rate 20 05/18/24 18:09 Respiratory Effort Normal 05/18/24 18:12 Blood Pressure 121/84 05/18/24 18:09 Blood Pressure Position Sitting 05/18/24 18:09 Pulse Oximetry 97 05/18/24 18:09 Oxygen Delivery Method Room Air 05/18/24 18:09 Oxygen Flow Rate 0 05/18/24 18:09 Medical Decision Making 28-year-old male who is well-known to the department presents to the ER with tingly fingers, KEYSHAWN buccal tingling and toe tingling for the last 4 days. He states this is similar to when his magnesium and calcium get low. He does have a past medical history of parathyroidectomy, anxiety, chronic kidney disease, depression PTSD. He also reports palpitations. BMP and magnesium ordered. EKG obtained by hospital staff pharmacist in triage which is at patient's baseline. Calcium magnesium within normal limits. Will discharge patient with follow-up with PCP. Lab Data Lab results reviewed: Yes I reviewed the patient's lab results. Labs: Laboratory Tests Range/Units 05/18/24 18:55 Sodium (136-145) mmol/L 145 Potassium (3.5-5.1) mmol/L 4.0 Chloride (98-107) mmol/L 105 Carbon Dioxide (21.0-32.0) mmol/L 33.6 H Anion Gap (3-11) mmol/L 6.4 BUN (7-18) mg/dL 13 Creatinine (0.70-1.30) mg/dL 1.6 H Est GFR (CKD-EPI 2020) (mL/min/1.73m2) 59.08 Glucose (74-106) mg/dL 103 Calcium (8.5-10.1) mg/dL 8.7 Magnesium (1.8-2.4) mg/dL 1.8 Quality:SDOH Health Related Social Needs: Health related social needs transportation insecurity( Z59.82) PFSH All Active Problems (Updated 05/18/24 @ 19:26 by Antoinette Templetno, DOCTOR OF NURSING PRACTICE) Tingling (Acute) URI (upper respiratory infection) (Acute) Cough (Acute) Acute pain of left foot (Acute) Chest pain (Acute) Right calf pain (Acute) Hypomagnesemia (Acute) Fatigue (Acute) Chest wall pain (Acute) Pharyngitis (Acute) IBS (irritable bowel syndrome) (Chronic) Pain of right calf (Acute) Obesity (Chronic) Migraine with aura (Acute) Insect bite of leg, right (Acute) Testicle lump (Acute) Hamstring tendinitis of left thigh (Acute) Pes anserine bursitis (Acute) Hypernatremia (Acute) Cervical radiculopathy (Acute) Left-sided Flower's palsy (Acute) Constipation (Acute) Grief reaction (Chronic) Opiate dependence, continuous (Acute) 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 Possible 2' Methadone, Clnzpm (?). Surg eval (+)/No further action. History of electrolyte imbalance (Acute) Neck pain on left side (Acute) with shoulder, upper back pain.. torticollis, radiating into left hip/leg Pulmonary nodule 1 cm or greater in diameter (Chronic) Therapeutic opioid induced constipation (Acute) Sphincter of Oddi dysfunction (Chronic) Abnormal CT scan, kidney (Acute) Intrahepatic bile duct dilation (Acute) Common bile duct dilatation (Chronic) Has been dilated for quite some time, now more-so. Normal LFTs. Known gallstones. Iatrogenic hypocalcemia (Acute) Multiple endocrine neoplasia type I (Chronic) Depression (Chronic) Hypocalcemia (Chronic) Elevated parathyroid hormone (Acute) Family history of coronary arteriosclerosis (Chronic) Father of HI at 50, mother had HI at 42 Severe anxiety with panic (Chronic) Medical History Urinary tract infection CKD (chronic kidney disease) stage 2, GFR 60-89 ml/min GFR 64-65, with Hx FLORESITA and GFR < 45 Primary hyperparathyroidism Complex medical condition Serious electrolyte imbalances, with gynecomastia, possible MEN Dx, CKD and anemia with baseline anxiety and Hx PTSD. Hypocalcemia Anxiety Depression Hyperlipidemia Family history of multiple endocrine neoplasia, type 1 PTSD (post-traumatic stress disorder) Per pt. states no triggers at this time. Surgical History History of laparoscopic cholecystectomy (~11/2023) H/O parathyroidectomy Family History Mother Anxiety Asthma Depression Sister Anxiety Depression Father Cancer lung & stomach Depression Diabetes Hypertension MEN 1 (multiple endocrine neoplasia) Social History Smoking/Tobacco Use Status: Never Smoking risk assessment performed?: Yes Alcohol Intake: never Drug use: Current Sobriety Substance use type: former substance user, crack/cocaine, heroin and painkillers Details: stopped using substances for the passed 4 years Adopted: No Caregiver/Support person: No Foster care: No Household members: none Housing: apartment Number of Children: 0 Communication Needs: None Education Level: high school Do you need help understanding health information?: Never 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 [employer] Pets and animals: Yes (Ally) Pets and animals: dog(s) Sexually active: No Do you think of yourself as: straight/heterosexual Current gender identity: male What is your relationship status?: How often do you talk on the phone with friends or family?: twice per week How often do you get together with friends or relatives?: never Do you belong to any clubs or organized social groups?: no Panel score (0-1 are the most socially isolated patients): 0 What type of physical activity do you participate in: walking Duration: 15-30 minutes/day Frequency: 5-6 times per week Maryam/Quaker: Nondenominational Special maryam needs: No Seatbelt use: always Helmet use: Yes Helmet use: always Drive intox or ride w/intox local flatbed 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
[2024-05-18 18:50] VITALS: PULSE 100; RESP 15; O2SAT 94
[2024-05-18 19:01] VITALS: RESP 16
[2024-05-18 19:19] LABS: Anion Gap 6.4 mmol/L (3-11); BUN 13 mg/dL (7-18); CO2 33.6 mmol/L (21.0-32.0); CREATININE 1.6 mg/dL (0.70-1.30); Calcium 8.7 mg/dL (8.5-10.1); Chloride 105 mmol/L (98-107); Estimated GFR 59.08 (mL/min/1.73m2); Glucose 103 mg/dL (74-106); Magnesium 1.8 mg/dL (1.8-2.4); Sodium 145 mmol/L (136-145)
== END 2024-05-18 19:27 | disposition home or self-care (01) ==
PROVIDERS: Emergency Provider Registered Nurse Emergency; PCP Family Medicine
DX: R20.2 Paresthesia of skin (principal); N18.9 Chronic kidney disease, unspecified; R00.2 Palpitations; F41.9 Anxiety disorder, unspecified; F32.A Depression, unspecified
CPT/HCPCS: 36415; 80048; 93005; 99284; 83735; 93010

== ENCOUNTER 2024-05-19 11:00 | Emergency (ER) | payer OTHER, SELFPAY ==
[2024-05-19 11:11] VITALS: BP 127/88; PULSE 121; RESP 15; TEMP 36.6; O2SAT 98
[2024-05-19 12:16] VITALS: BP 128/76; PULSE 96
--- NOTE | 2024-05-20 09:25 | W.ED.GENAD ---
Discharge Plan Disposition Patient Disposition: Home Condition: Stable Discharge Details Clinical Impression: Shoulder tendinitis Primary Care Provider: Brendon Vivar ED Provider: Luh Tsai Home Meds and New Rx's Prescriptions: Continued gabapentin 300 mg capsule 300 mg PO BID Qty: 180 3RF methadone 10 mg/5 mL solution 100 mg PO QAM omeprazole 40 mg capsule,delayed release(DR/EC) 40 mg PO DAILY Qty: 90 3RF simethicone 125 mg tablet,chewable 125 mg PO QID PRN (Reason: abdominal distention) Qty: 20 3RF fluoxetine 20 mg capsule 20 mg PO DAILY Qty: 60 0RF polyethylene glycol 3350 17 gram powder in packet 17 g PO DAILY Qty: 100 1RF cyclobenzaprine 10 mg tablet 10 mg PO TID PRN (Reason: muscle spasm) Qty: 30 3RF clonazepam 1 mg tablet 1 mg PO BID Qty: 44 0RF calcium carbonate [Tums] 200 mg calcium (500 mg) tablet,chewable 2,000 mg PO BID prochlorperazine maleate 5 mg tablet 5 mg PO TID PRN (Reason: acute nausea) Qty: 30 0RF calcitriol 0.5 mcg capsule 1 mcg PO TID magnesium gluconate 27 mg magnesium (500 mg) tablet 13.5 mg PO TID Qty: 60 3RF promethazine 6.25 mg/5 mL syrup 12.5 mg PO Q6H PRN (Reason: cough) Qty: 120 0RF Discharge Instructions Instructions: Calcific Tendinopathy of the Shoulder (DC) Additional Instructions: Apply [id number] Motrin or diclofenac gel to your left shoulder as prescribed Continue to range her shoulder so it does not become stiff, follow-up with orthopedics and physical therapy continue to range shoulder so it does not become stiff, limited repetitive motion and heavy lifting Stand Alone Forms: Physical Therapy Referral, Work Release Referrals: Dash Hernandez MD [ [facility] STAFF PHYSICIAN] - 1 week Discharge Data Discharge Date/Time-TO BE ENTERED AT DEPARTURE: 05/19/24 12:51 HPI General Date/Time Provider Initiated Documentation: 05/19/24 11:17. HPI Narrative: This 28-year-old male presents with left shoulder pain and report of discomfort and weakness with hand grasp. He states this worsened today while he was using a drill at work. Denies any additional specific trauma. He states has been bothering him for a while. He denies any chest pain or shortness of breath. Denies any dizziness or generalized weakness. Related Data Home Medications ?Medication ?Instructions ?Recorded ?Confirmed calcium carbonate (Tums) 2,000 mg PO BID 02/02/23 05/19/24 methadone 10 mg/5 mL oral solution 100 mg PO QAM 06/12/23 05/19/24 gabapentin 300 mg capsule 300 mg PO BID #180 caps 06/23/23 05/19/24 omeprazole 40 mg capsule,delayed 40 mg PO DAILY #90 caps 07/21/23 05/19/24 release prochlorperazine maleate 5 mg 5 mg PO TID PRN acute nausea #30 09/06/23 05/19/24 tablet tabs magnesium gluconate 27 mg 13.5 mg (1/2 x 27 mg magnesium 11/21/23 05/19/24 magnesium (500 mg) tablet (500 mg)) PO TID #60 tabs fluoxetine 20 mg capsule 20 mg PO DAILY #60 caps 03/12/24 05/19/24 simethicone 125 mg chewable tablet 125 mg PO QID PRN abdominal 03/12/24 05/19/24 distention #20 tabs cyclobenzaprine 10 mg tablet 10 mg PO TID PRN muscle spasm #30 04/09/24 05/19/24 tabs polyethylene glycol 3350 17 gram 17 g PO DAILY #100 ea 04/09/24 05/19/24 oral powder packet calcitriol 0.5 mcg capsule 1 mcg PO TID 04/17/24 05/19/24 clonazepam 1 mg tablet 1 mg PO BID #44 tabs 05/11/24 05/19/24 promethazine 6.25 mg/5 mL oral 12.5 mg (10 mL) PO Q6H PRN cough 05/15/24 05/19/24 syrup #120 mL Previous Rx's ?Medication ?Instructions ?Recorded gabapentin 300 mg capsule 300 mg PO BID #180 caps 06/23/23 omeprazole 40 mg capsule,delayed 40 mg PO DAILY #90 caps 07/21/23 release prochlorperazine maleate 5 mg 5 mg PO TID PRN acute nausea #30 09/06/23 tablet tabs magnesium gluconate 27 mg 13.5 mg (1/2 x 27 mg magnesium 11/21/23 magnesium (500 mg) tablet (500 mg)) PO TID #60 tabs fluoxetine 20 mg capsule 20 mg PO DAILY #60 caps 03/12/24 simethicone 125 mg chewable tablet 125 mg PO QID PRN abdominal 03/12/24 distention #20 tabs cyclobenzaprine 10 mg tablet 10 mg PO TID PRN muscle spasm #30 04/09/24 tabs polyethylene glycol 3350 17 gram 17 g PO DAILY #100 ea 04/09/24 oral powder packet clonazepam 1 mg tablet 1 mg PO BID #44 tabs 05/11/24 promethazine 6.25 mg/5 mL oral 12.5 mg (10 mL) PO Q6H PRN cough 05/15/24 syrup #120 mL Allergies Allergy/AdvReac Type Severity Reaction Status Date / Time codeine Allergy Intermediate pass out Verified 05/19/24 11:14 Penicillins Allergy Skin Rash Verified 05/19/24 11:14 amoxicillin AdvReac Intermediate Nausea Verified 05/19/24 11:14 dextromethorphan (From AdvReac Intermediate got Verified 05/19/24 11:14 NyQuil) really hot and sweaty doxylamine (From NyQuil) AdvReac Intermediate got Verified 05/19/24 11:14 really hot and sweaty pseudoephedrine (From NyQuil) AdvReac Intermediate got Verified 05/19/24 11:14 really hot and sweaty General Stated Complaint: Nk/Back Pain ADRIANA: 4 Exam Narrative Exam Narrative: 28-year-old male, alert and oriented, hand grasp diminished with discomfort, neurovascularly intact, tenderness with palpation over long head of bicep. No redness noted, no cervical spine tenderness appreciated, lungs clear to auscultation Course Vital Signs Vital signs: Vital Signs Temperature 36.6 C 05/19/24 11:11 Pulse 121 H 05/19/24 11:11 Respiratory Rate 15 05/19/24 11:11 Blood Pressure 127/88 05/19/24 11:11 Pulse Oximetry 98 05/19/24 11:11 Temperature 36.6 C 05/19/24 11:11 Pulse 96 H 05/19/24 12:16 Respiratory Rate 15 05/19/24 11:11 Respiratory Effort Normal 05/19/24 12:16 Respiratory Depth Normal 05/19/24 12:16 Blood Pressure 128/76 05/19/24 12:16 Blood Pressure Mean 93 05/19/24 12:16 Blood Pressure Position Sitting 05/19/24 11:11 Pulse Oximetry 98 05/19/24 11:11 Oxygen Delivery Method Room Air 05/19/24 11:11 Oxygen Flow Rate 0 05/19/24 11:11 Medical Decision Making 28-year-old male presenting in no acute distress, reviewed left shoulder x-ray from a month prior to arrival. Also reviewed patient's cervical spine MRI. There was no acute abnormality noted on cervical spine MRI. Patient likely has calcific tendinitis after reviewing his x-ray. He is placed in a sling and given work precautions. He is encouraged to range his shoulder to prevent frozen shoulder and given a referral to orthopedics and physical therapy. He is to follow-up with physical therapy first. Given low threshold to return should he have new or worsening complaints he will use Voltaren gel for discomfort. Quality:SDOH Health Related Social Needs: Health related social needs transportation insecurity(Z59.82) PFSH All Active Problems (Updated 05/19/24 @ 12:38 by ANDREW Arriaga) Shoulder tendinitis (Acute) Tingling (Acute) URI (upper respiratory infection) (Acute) Cough (Acute) Acute pain of left foot (Acute) Chest pain (Acute) Right calf pain (Acute) Hypomagnesemia (Acute) Fatigue (Acute) Chest wall pain (Acute) Pharyngitis (Acute) IBS (irritable bowel syndrome) (Chronic) Pain of right calf (Acute) Obesity (Chronic) Migraine with aura (Acute) Insect bite of leg, right (Acute) Testicle lump (Acute) Hamstring tendinitis of left thigh (Acute) Pes anserine bursitis (Acute) Hypernatremia (Acute) Cervical radiculopathy (Acute) Left-sided Flower's palsy (Acute) Constipation (Acute) Grief reaction (Chronic) Opiate dependence, continuous (Acute) 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 Possible 2' Methadone, Clnzpm (?). Surg eval (+)/No further action. History of electrolyte imbalance (Acute) Neck pain on left side (Acute) with shoulder, upper back pain.. torticollis, radiating into left hip/leg Pulmonary nodule 1 cm or greater in diameter (Chronic) Therapeutic opioid induced constipation (Acute) Sphincter of Oddi dysfunction (Chronic) Abnormal CT scan, kidney (Acute) Intrahepatic bile duct dilation (Acute) Common bile duct dilatation (Chronic) Has been dilated for quite some time, now more-so. Normal LFTs. Known gallstones. Iatrogenic hypocalcemia (Acute) Multiple endocrine neoplasia type I (Chronic) Depression (Chronic) Hypocalcemia (Chronic) Elevated parathyroid hormone (Acute) Family history of coronary arteriosclerosis (Chronic) Father of [place] at 50, mother had [place] at 42 Severe anxiety with panic (Chronic) Medical History Urinary tract infection CKD (chronic kidney disease) stage 2, GFR 60-89 ml/min GFR 64-65, with Hx FLORESITA and GFR < 45 Primary hyperparathyroidism Complex medical condition Serious electrolyte imbalances, with gynecomastia, possible MEN Dx, CKD and anemia with baseline anxiety and Hx PTSD. Hypocalcemia Anxiety Depression Hyperlipidemia Family history of multiple endocrine neoplasia, type 1 PTSD (post-traumatic stress disorder) Per pt. states no triggers at this time. Surgical History History of laparoscopic cholecystectomy (~11/2023) H/O parathyroidectomy Family History Mother Anxiety Asthma Depression Sister Anxiety Depression Father Cancer lung & stomach Depression Diabetes Hypertension MEN 1 (multiple endocrine neoplasia) Social History Smoking/Tobacco Use Status: Never Smoking risk assessment performed?: Yes Alcohol Intake: never Drug use: Current Sobriety Substance use type: former substance user, crack/cocaine, heroin and painkillers Details: stopped using substances for the passed 4 years Adopted: No Caregiver/Support person: No Foster care: No Household members: none Housing: apartment Number of Children: 0 Communication Needs: None Education Level: high school Do you need help understanding health information?: Never 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[employer] Pets and animals: Yes (Ally) Pets and animals: dog(s) Sexually active: No Do you think of yourself as: straight/heterosexual Current gender identity: male What is your relationship status?: How often do you talk on the phone with friends or family?: twice per week How often do you get together with friends or relatives?: never Do you belong to any clubs or organized social groups?: no Panel score (0-1 are the most socially isolated patients): 0 What type of physical activity do you participate in: walking Duration: 15-30 minutes/day Frequency: 5-6 times per week Maryam/Worship: Scientology Special maryam needs: No Seatbelt use: always Helmet use: Yes Helmet use: always Drive 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
== END 2024-05-19 12:51 | disposition home or self-care (01) ==
PROVIDERS: Emergency Provider Physician Assistant; PCP Family Medicine
DX: M75.92 Shoulder lesion, unspecified, left shoulder (principal); Z59.82 Transportation insecurity
CPT/HCPCS: 99281; 99283

== ENCOUNTER 2024-05-25 15:21 | Emergency (ER) | payer OTHER, SELFPAY ==
--- NOTE | 2024-05-25 15:15 | RT.EKG_ITS ---
APPROVED REPORT Exam: Resting ECG Reason for Exam: EKG Patient Location: E HR:101 bpm ECG Measurements Heart Rate 101 AXIS ND 177 P 41 QRSd 96 QRS 16 QT 363 T 35 QTc 470 Conclusion Sinus tachycardia...rate> 99 No complex sinus tachycardia rate of 101. Normal axis. Intervals within normal limits. No ST segme nt abnormalities. T wave flattening aVL V5 and V6. T wave flattening appears slightly more pronounc ed compared to prior dated earlier this month.
[2024-05-25 15:25] VITALS: BP 135/74; PULSE 107; RESP 15; TEMP 36.7; O2SAT 95
[2024-05-25 16:13] LABS: Anion Gap 7.9 mmol/L (3-11); BUN 16 mg/dL (7-18); CO2 30.1 mmol/L (21.0-32.0); CREATININE 1.5 mg/dL (0.70-1.30); Calcium 9.1 mg/dL (8.5-10.1); Chloride 104 mmol/L (98-107); Estimated GFR 63.83 (mL/min/1.73m2); Glucose 98 mg/dL (74-106); Magnesium 1.9 mg/dL (1.8-2.4); Potassium 3.7 mmol/L (3.5-5.1); Sodium 142 mmol/L (136-145)
[2024-05-25 16:22] LABS: Troponin I 4 ng/L (<or=76)
[2024-05-25 16:39] VITALS: BP 130/70; PULSE 80; RESP 20; TEMP 36.8; O2SAT 98
--- NOTE | 2024-05-25 16:58 | ED.GENADUL_ITS ---
Discharge Plan Disposition Patient Disposition: Home Condition: Stable Discharge Details Clinical Impression: Facial paresthesia, Chest pain Primary Care Provider: Brendon Vivar ED Provider: Luh Tsai Home Meds and New Rx's Prescriptions: Continued gabapentin 300 mg capsule 300 mg PO BID Qty: 180 3RF methadone 10 mg/5 mL solution 100 mg PO QAM omeprazole 40 mg capsule,delayed release(DR/EC) 40 mg PO DAILY Qty: 90 3RF simethicone 125 mg tablet,chewable 125 mg PO QID PRN (Reason: abdominal distention) Qty: 20 3RF fluoxetine 20 mg capsule 20 mg PO DAILY Qty: 60 0RF polyethylene glycol 3350 17 gram powder in packet 17 g PO DAILY Qty: 100 1RF cyclobenzaprine 10 mg tablet 10 mg PO TID PRN (Reason: muscle spasm) Qty: 30 3RF clonazepam 1 mg tablet 1 mg PO BID Qty: 44 0RF calcium carbonate [Tums] 200 mg calcium (500 mg) tablet,chewable 2,000 mg PO BID prochlorperazine maleate 5 mg tablet 5 mg PO TID PRN (Reason: acute nausea) Qty: 30 0RF calcitriol 0.5 mcg capsule 1 mcg PO TID magnesium gluconate 27 mg magnesium (500 mg) tablet 13.5 mg PO TID Qty: 60 3RF promethazine 6.25 mg/5 mL syrup 12.5 mg PO Q6H PRN (Reason: cough) Qty: 120 0RF Discharge Instructions Instructions: Chest Pain, Adult ED Additional Instructions: Your magnesium and calcium are reassuring calcium is 9.1 and magnesium is 1.9 Take your medications as prescribed and follow-up with your doctor for reassessment at your scheduled appointment Should you have new or worsening symptoms or persistent complaints, please return for reassessment Referrals: Brendon Vivar DO [Primary Care Provider] - 2 days Discharge Data Discharge Date/Time-TO BE ENTERED AT DEPARTURE: 05/25/24 17:09 HPI General Date/Time Provider Initiated Documentation: 05/25/24 15:33 . HPI Narrative: This 28-year-old male known to this facility presents with report of perioral tingling tingling to bilateral hands. He feels as though his calcium and magnesium are low. He also had some intermittent chest pain since yesterday. Denies any current pain. Denies any shortness of breath recent flights, surgeries, long drives. Taking all medications as prescribed. Denies any calf pain or swelling. Denies any exacerbating or alleviating factors. Related Data Home Medications ?Medication ?Instructions ?Recorded ?Confirmed calcium carbonate (Tums) 2,000 mg PO BID 02/02/23 05/25/24 methadone 10 mg/5 mL oral solution 100 mg PO QAM 06/12/23 05/25/24 gabapentin 300 mg capsule 300 mg PO BID #180 caps 06/23/23 05/25/24 omeprazole 40 mg capsule,delayed 40 mg PO DAILY #90 caps 07/21/23 05/25/24 release prochlorperazine maleate 5 mg 5 mg PO TID PRN acute nausea #30 09/06/23 05/25/24 tablet tabs magnesium gluconate 27 mg 13.5 mg (1/2 x 27 mg magnesium 11/21/23 05/25/24 magnesium (500 mg) tablet (500 mg)) PO TID #60 tabs fluoxetine 20 mg capsule 20 mg PO DAILY #60 caps 03/12/24 05/25/24 simethicone 125 mg chewable tablet 125 mg PO QID PRN abdominal 03/12/24 05/25/24 distention #20 tabs cyclobenzaprine 10 mg tablet 10 mg PO TID PRN muscle spasm #30 04/09/24 05/25/24 tabs polyethylene glycol 3350 17 gram 17 g PO DAILY #100 ea 04/09/24 05/25/24 oral powder packet calcitriol 0.5 mcg capsule 1 mcg PO TID 04/17/24 05/25/24 clonazepam 1 mg tablet 1 mg PO BID #44 tabs 05/11/24 05/25/24 promethazine 6.25 mg/5 mL oral 12.5 mg (10 mL) PO Q6H PRN cough 05/15/24 05/25/24 syrup #120 mL Previous Rx's ?Medication ?Instructions ?Recorded gabapentin 300 mg capsule 300 mg PO BID #180 caps 06/23/23 omeprazole 40 mg capsule,delayed 40 mg PO DAILY #90 caps 07/21/23 release prochlorperazine maleate 5 mg 5 mg PO TID PRN acute nausea #30 09/06/23 tablet tabs magnesium gluconate 27 mg 13.5 mg (1/2 x 27 mg magnesium 11/21/23 magnesium (500 mg) tablet (500 mg)) PO TID #60 tabs fluoxetine 20 mg capsule 20 mg PO DAILY #60 caps 03/12/24 simethicone 125 mg chewable tablet 125 mg PO QID PRN abdominal 03/12/24 distention #20 tabs cyclobenzaprine 10 mg tablet 10 mg PO TID PRN muscle spasm #30 04/09/24 tabs polyethylene glycol 3350 17 gram 17 g PO DAILY #100 ea 04/09/24 oral powder packet clonazepam 1 mg tablet 1 mg PO BID #44 tabs 05/11/24 promethazine 6.25 mg/5 mL oral 12.5 mg (10 mL) PO Q6H PRN cough 05/15/24 syrup #120 mL Allergies Allergy/AdvReac Type Severity Reaction Status Date / Time codeine Allergy Intermediate pass out Verified 05/25/24 15:28 Penicillins Allergy Skin Rash Verified 05/25/24 15:28 amoxicillin AdvReac Intermediate Nausea Verified 05/25/24 15:28 dextromethorphan (From AdvReac Intermediate got Verified 05/25/24 15:28 NyQuil) really hot and sweaty doxylamine (From NyQuil) AdvReac Intermediate got Verified 05/25/24 15:28 really hot and sweaty pseudoephedrine (From NyQuil) AdvReac Intermediate got Verified 05/25/24 15:28 really hot and sweaty General Stated Complaint: Chest Pain ADRIANA: 3 Exam Narrative Exam Narrative: Alert and oriented 28-year-old male presenting in no acute distress, pupils equal round reactive to light and accommodation, oropharynx patent, uvula midline, cardiac rate rhythm regular, no abdominal tenderness alert and oriented x 4, no peripheral edema, distal pulses intact Course Vital Signs Vital signs: Vital Signs Temperature 36.7 C 05/25/24 15:25 Pulse 107 H 05/25/24 15:25 Respiratory Rate 15 05/25/24 15:25 Blood Pressure 135/74 05/25/24 15:25 Pulse Oximetry 95 05/25/24 15:25 Temperature 36.8 C 05/25/24 16:39 Pulse 80 05/25/24 16:39 Respiratory Rate 20 05/25/24 16:39 Respiratory Effort Normal, Non-Labored 05/25/24 16:12 Blood Pressure 130/70 05/25/24 16:39 Blood Pressure Position Sitting 05/25/24 15:25 Pulse Oximetry 98 05/25/24 16:39 Oxygen Delivery Method Room Air 05/25/24 16:39 Oxygen Flow Rate 0 05/25/24 16:39 Pain Level 0 05/25/24 16:39 Lab/Test Results Lab/Test Results: Laboratory Tests Range/Units 05/25/24 15:55 Sodium (136-145) mmol/L 142 Potassium (3.5-5.1) mmol/L 3.7 Chloride (98-107) mmol/L 104 Carbon Dioxide (21.0-32.0) mmol/L 30.1 Anion Gap (3-11) mmol/L 7.9 BUN (7-18) mg/dL 16 Creatinine (0.70-1.30) mg/dL 1.5 H Est GFR (CKD-EPI 2020) (mL/min/1.73m2) 63.83 Glucose (74-106) mg/dL 98 Calcium (8.5-10.1) mg/dL 9.1 Magnesium (1.8-2.4) mg/dL 1.9 Troponin I (<or=76) ng/L 4 Medical Decision Making 28-year-old male presenting in no acute distress, EKG and diagnostic evaluation was ordered for additional evaluation. Calcium and magnesium appear to be within normal limits when compared to prior. EKG is nonischemic, please see attendings documentation. Patient has had numerous chest x-ray his lungs are c lear to auscultation cardiac rate rhythm regular I see no clear indication for imaging at this time, no hypoxia. Patient will follow-up with primary care physician. Return precautions reviewed and patient expressed understanding Quality:SDOH Health Related Social Needs: Health related social needs transportation insecurity( Z59.82) PFSH All Active Problems (Updated 05/26/24 @ 00:07 by HAMMAD WILEY) Chest pain (Acute) Facial paresthesia (Acute) Shoulder tendinitis (Acute) Tingling (Acute) URI (upper respiratory infection) (Acute) Cough (Acute) Acute pain of left foot (Acute) Chest pain (Acute) Right calf pain (Acute) Hypomagnesemia (Acute) Fatigue (Acute) IBS (irritable bowel syndrome) (Chronic) Pain of right calf (Acute) Obesity (Chronic) Migraine with aura (Acute) Insect bite of leg, right (Acute) Testicle lump (Acute) Hamstring tendinitis of left thigh (Acute) Pes anserine bursitis (Acute) Hypernatremia (Acute) Cervical radiculopathy (Acute) Left-sided Flower's palsy (Acute) Constipation (Acute) Grief reaction (Chronic) Opiate dependence, continuous (Acute) 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 Possible 2' Methadone, Clnzpm (?). Surg eval (+)/No further action. History of electrolyte imbalance (Acute) Neck pain on left side (Acute) with shoulder, upper back pain.. torticollis, radiating into left hip/leg Pulmonary nodule 1 cm or greater in diameter (Chronic) Therapeutic opioid induced constipation (Acute) Sphincter of Oddi dysfunction (Chronic) Abnormal CT scan, kidney (Acute) Intrahepatic bile duct dilation (Acute) Common bile duct dilatation (Chronic) Has been dilated for quite some time, now more-so. Normal LFTs. Known gallstones. Iatrogenic hypocalcemia (Acute) Multiple endocrine neoplasia type I (Chronic) Depression (Chronic) Hypocalcemia (Chronic) Elevated parathyroid hormone (Acute) Family history of coronary arteriosclerosis (Chronic) Father of [place] at 50, mother had [place] at 42 Severe anxiety with panic (Chronic) Medical History Urinary tract infection CKD (chronic kidney disease) stage 2, GFR 60-89 ml/min GFR 64-65, with Hx FLORESITA and GFR < 45 Primary hyperparathyroidism Complex medical condition Serious electrolyte imbalances, with gynecomastia, possible MEN Dx, CKD and anemia with baseline anxiety and Hx PTSD. Hypocalcemia Anxiety Depression Hyperlipidemia Family history of multiple endocrine neoplasia, type 1 PTSD (post-traumatic stress disorder) Per pt. states no triggers at this time. Surgical History History of laparoscopic cholecystectomy (~11/2023) H/O parathyroidectomy Family History Mother Anxiety Asthma Depression Sister Anxiety Depression Father Cancer lung & stomach Depression Diabetes Hypertension MEN 1 (multiple endocrine neoplasia) Social History Smoking/Tobacco Use Status: Never Smoking risk assessment performed?: Yes Alcohol Intake: never Drug use: Current Sobriety Substance use type: former substance user, crack/cocaine, heroin and painkillers Details: stopped using substances for the passed 4 years Adopted: No Caregiver/Support person: No Foster care: No Household members: none Housing: apartment Number of Children: 0 Communication Needs: None Education Level: high school Do you need help understanding health information?: Never 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[employer] Pets and animals: Yes (Ally) Pets and animals: dog(s) Sexually active: No Do you think of yourself as: straight/heterosexual Current gender identity: male What is your relationship status?: How often do you talk on the phone with friends or family?: twice per week How often do you get together with friends or relatives?: never Do you belong to any clubs or organized social groups?: no Panel score (0-1 are the most socially isolated patients): 0 What type of physical activity do you participate in: walking Duration: 15-30 minutes/day Frequency: 5-6 times per week Maryam/Samaritan: Scientologist Special maryam needs: No Seatbelt use: always Helmet use: Yes Helmet use: always Drive 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
[2024-05-25 17:08] VITALS: BP 138/70; PULSE 80; RESP 18; TEMP 36.8; O2SAT 98
== END 2024-05-25 17:09 | disposition home or self-care (01) ==
PROVIDERS: Emergency Provider Physician Assistant; PCP Family Medicine
DX: R07.9 Chest pain, unspecified (principal); R20.2 Paresthesia of skin; R00.0 Tachycardia, unspecified; E89.2 Postprocedural hypoparathyroidism; E78.5 Hyperlipidemia, unspecified
CPT/HCPCS: 36415; 80048; 93005; 99284; 83735; 84484; 93010

== ENCOUNTER 2024-06-01 19:01 | Emergency (ER) | payer OTHER, SELFPAY ==
[2024-06-01 19:02] VITALS: BP 121/86; PULSE 114; RESP 18; TEMP 35.9; O2SAT 96
[2024-06-01 19:24] LABS: Bilirubin Negative (Negative); Blood Negative (Negative); Clarity Clear (Clear); Glucose Negative (Negative); Ketones Negative (Negative); Leukocyte Esterase Negative (Negative); Nitrite Negative (Negative); Specific Gravity 1.015 (1.005-1.025); Urobilinogen 0.2 mg/dL (Up to 0.2); pH 6.5 (5-8)
--- NOTE | 2024-06-01 19:26 | ED.GENADUL_ITS ---
Discharge Plan Disposition Patient Disposition: Home Condition: Good Discharge Details Clinical Impression: Back pain Primary Care Provider: Brendon Vivar ED Provider: Saranya Estrada Home Meds and New Rx's Prescriptions: Continued clonazepam 1 mg tablet 1 mg PO BID Qty: 56 0RF cyclobenzaprine 10 mg tablet 10 mg PO TID PRN (Reason: muscle spasm) Qty: 30 3RF gabapentin 300 mg capsule 300 mg PO BID Qty: 180 3RF methadone 10 mg/5 mL solution 100 mg PO QAM omeprazole 40 mg capsule,delayed release(DR/EC) 40 mg PO DAILY Qty: 90 3RF simethicone 125 mg tablet,chewable 125 mg PO QID PRN (Reason: abdominal distention) Qty: 20 3RF polyethylene glycol 3350 17 gram powder in packet 17 g PO DAILY Qty: 100 1RF calcium carbonate [Tums] 200 mg calcium (500 mg) tablet,chewable 2,000 mg PO BID prochlorperazine maleate 5 mg tablet 5 mg PO TID PRN (Reason: acute nausea) Qty: 30 0RF calcitriol 0.5 mcg capsule 1 mcg PO TID magnesium gluconate 27 mg magnesium (500 mg) tablet 13.5 mg PO TID Qty: 60 3RF promethazine 6.25 mg/5 mL syrup 12.5 mg PO Q6H PRN (Reason: cough) Qty: 120 0RF Discharge Instructions Additional Instructions: Your workup today was reassuring. Your creatinine was a tiny bit elevated today from previous. Please stay well-hydrated, drinking plenty of fluids throughout the day, especially while you are working. I recommend the use muscle rub such as Aspercreme or Bengay, gentle massage, and ibuprofen as needed. You may also use lidocaine patches. Do not apply heat or ice on top of the lidocaine patches. I recommend that you discuss physical therapy with your primary care provider if this pain continues beyond the next week. Return to emergency care if develop new severe back pain, blood in your urine, numbness in your underwear area, leg weakness/numbness, or if you are very worried and need to be rechecked again immediately Referrals: Brendon Vivar DO [Primary Care Provider] - HPI General Date/Time Provider Initiated Documentation: 06/01/24 19:12 . HPI Narrative: Pedro Pablo is a 28year old male who presents to the emergency department today for evaluation of right mid back pain. He reports that pains started this morning when he woke up, is described as a burning/sharp sensation. Denies associated fever/chills, cough, congestion, nausea/vomiting, hematuria, dysuria, change in urine other than increased yellow urine, change in bowel or bladder function, saddle anesthesia, leg weakness/numbness, change in gait. 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 He admits that he has been sweating a lot at his job, so he is concerned that he may not be as well-hydrated as he should be. Past medical history is significant for anxiety, IBS, MEN type I. He does have a significant family history of kidney disease. Physical exam reassuring. Pedro Pablo is alert and oriented, no acute distress. Muscle spasm noted with palpation of right mid back. No overlying lesions/rashes/abrasions or ecchymosis. No CVA tenderness. Easy work of breathing, lung sounds clear bilaterally. Normal heart sounds. D/dx includes but is not limited to: Muscle spasm, nephrolithiasis, pyelonephritis. No red flags on history or physical exam concerning for cauda equina, spinal epidural abscess, or other serious etiology requiring emergent diagnostic imaging at this time. I independently interpreted the following tests: CBC and BMP reassuring, only mildly elevated creatinine today from baseline. History and presentation most consistent with muscle spasm due to a twisting motion while working. Recommend symptomatic management and follow-up with PCP if any concerns. Strongly recommend good RN reviewed discharge instructions with patient, including symptomatic management and red flags indicating need for return to emergency care Related Data Home Medications ?Medication ?Instructions ?Recorded ?Confirmed calcium carbonate (Tums) 2,000 mg PO BID 02/02/23 06/01/24 methadone 10 mg/5 mL oral solution 100 mg PO QAM 06/12/23 06/01/24 omeprazole 40 mg capsule,delayed 40 mg PO DAILY #90 caps 07/21/23 06/01/24 release prochlorperazine maleate 5 mg 5 mg PO TID PRN acute nausea #30 09/06/23 06/01/24 tablet tabs magnesium gluconate 27 mg 13.5 mg (06/17 x 27 mg magnesium 11/21/23 06/01/24 magnesium (500 mg) tablet (500 mg)) PO TID #60 tabs simethicone 125 mg chewable tablet 125 mg PO QID PRN abdominal 03/12/24 06/01/24 distention #20 tabs polyethylene glycol 3350 17 gram 17 g PO DAILY #100 ea 04/09/24 06/01/24 oral powder packet calcitriol 0.5 mcg capsule 1 mcg PO TID 04/17/24 06/01/24 promethazine 6.25 mg/5 mL oral 12.5 mg (10 mL) PO Q6H PRN cough 05/15/24 06/01/24 syrup #120 mL clonazepam 1 mg tablet 1 mg PO BID #56 tabs 06/01/24 06/01/24 cyclobenzaprine 10 mg tablet 10 mg PO TID PRN muscle spasm #30 06/01/24 06/01/24 tabs gabapentin 300 mg capsule 300 mg PO BID #180 caps 06/01/24 06/01/24 Previous Rx's ?Medication ?Instructions ?Recorded omeprazole 40 mg capsule,delayed 40 mg PO DAILY #90 caps 07/21/23 release prochlorperazine maleate 5 mg 5 mg PO TID PRN acute nausea #30 09/06/23 tablet tabs magnesium gluconate 27 mg 13.5 mg (1/2 x 27 mg magnesium 11/21/23 magnesium (500 mg) tablet (500 mg)) PO TID #60 tabs simethicone 125 mg chewable tablet 125 mg PO QID PRN abdominal 03/12/24 distention #20 tabs polyethylene glycol 3350 17 gram 17 g PO DAILY #100 ea 04/09/24 oral powder packet promethazine 6.25 mg/5 mL oral 12.5 mg (10 mL) PO Q6H PRN cough 05/15/24 syrup #120 mL clonazepam 1 mg tablet 1 mg PO BID #56 tabs 06/01/24 cyclobenzaprine 10 mg tablet 10 mg PO TID PRN muscle spasm #30 06/01/24 tabs gabapentin 300 mg capsule 300 mg PO BID #180 caps 06/01/24 Allergies Allergy/AdvReac Type Severity Reaction Status Date / Time codeine Allergy Intermediate pass out Verified 06/01/24 19:11 Penicillins Allergy Skin Rash Verified 06/01/24 19:11 amoxicillin AdvReac Intermediate Nausea Verified 06/01/24 19:11 dextromethorphan (From AdvReac Intermediate got Verified 06/01/24 19:11 NyQuil) really hot and sweaty doxylamine (From NyQuil) AdvReac Intermediate got Verified 06/01/24 19:11 really hot and sweaty pseudoephedrine (From NyQuil) AdvReac Intermediate got Verified 06/01/24 19:11 really hot and sweaty General Stated Complaint: Nk/Back Pain ADRIANA: 4 Review of Systems Narrative: see HPI Exam Const General: cooperative, healthy appearing, comfortable, no acute distress, well developed and well groomed Nutritional Appearance: overweight Orientation: alert and oriented x3 Resp Effort & Inspection: normal respiratory effort and able to speak in complete sentences Auscultation: clear to auscultation bilaterally Cardio Rate: regular rate Rhythm: regular rhythm General: No CVA tenderness Back/Spine/Pelvis Back: no CVA tenderness Thoracic/Lumbar Spine: thoracic and lumbar spine normal to inspection and paraspinal tenderness (R mid back spasm) Course Vital Signs Vital signs: Vital Signs Temperature 35.9 C L 06/01/24 19:02 Pulse 114 H 06/01/24 19:02 Respiratory Rate 18 06/01/24 19:02 Blood Pressure 121/86 06/01/24 19:02 Pulse Oximetry 96 06/01/24 19:02 Temperature 35.9 C L 06/01/24 19:02 Temperature Source Temporal Artery Scan 06/01/24 19:02 Pulse 114 H 06/01/24 19:02 Respiratory Rate 18 06/01/24 19:02 Blood Pressure 121/86 06/01/24 19:02 Blood Pressure Position Sitting 06/01/24 19:02 Pulse Oximetry 96 06/01/24 19:02 Oxygen Delivery Method Room Air 06/01/24 19:02 Oxygen Flow Rate 0 06/01/24 19:02 Pain Level 8 06/01/24 19:02 Lab/Test Results Lab/Test Results: Laboratory Tests Range/Units 06/01/24 19:05 Urine Color (Yellow) Yellow Urine Clarity (Clear) Clear Urine pH (5-8) 6.5 Ur Specific [place] (1.005-1.025) 1.015 Urine Protein (Neg-Trace) mg/dL Negative Urine Ketones (Negative) mg/dL Negative Urine Blood (Negative) Negative Urine Nitrite (Negative) Negative Urine Bilirubin (Negative) Negative Urine Urobilinogen (Up to 0.2) mg/dL 0.2 Ur Leukocyte Esterase (Negative) Negative Urine Glucose (Negative) mg/dL Negative Medical Decision Making Quality:SDOH Health Related Social Needs: Health related social needs transportation insecurity( Z59.82) PFSH All Active Problems (Updated 06/01/24 @ 19:54 by Saranya Avila) Back pain (Acute) Chest pain (Acute) Facial paresthesia (Acute) Shoulder tendinitis (Acute) Tingling (Acute) URI (upper respiratory infection) (Acute) Cough (Acute) Acute pain of left foot (Acute) Chest pain (Acute) Right calf pain (Acute) Hypomagnesemia (Acute) Fatigue (Acute) IBS (irritable bowel syndrome) (Chronic) Pain of right calf (Acute) Obesity (Chronic) Migraine with aura (Acute) Insect bite of leg, right (Acute) Testicle lump (Acute) Hamstring tendinitis of left thigh (Acute) Pes anserine bursitis (Acute) Hypernatremia (Acute) Cervical radiculopathy (Acute) Left-sided Flower's palsy (Acute) Constipation (Acute) Grief reaction (Chronic) Opiate dependence, continuous (Acute) 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 Possible 2' Methadone, Clnzpm (?). Surg eval (+)/No further action. History of electrolyte imbalance (Acute) Neck pain on left side (Acute) with shoulder, upper back pain.. torticollis, radiating into left hip/leg Pulmonary nodule 1 cm or greater in diameter (Chronic) Therapeutic opioid induced constipation (Acute) Sphincter of Oddi dysfunction (Chronic) Abnormal CT scan, kidney (Acute) Intrahepatic bile duct dilation (Acute) Common bile duct dilatation (Chronic) Has been dilated for quite some time, now more-so. Normal LFTs. Known gallstones. Iatrogenic hypocalcemia (Acute) Multiple endocrine neoplasia type I (Chronic) Depression (Chronic) Hypocalcemia (Chronic) Elevated parathyroid hormone (Acute) Family history of coronary arteriosclerosis (Chronic) Father of VA at 50, mother had VA at 42 Severe anxiety with panic (Chronic) Medical History Urinary tract infection CKD (chronic kidney disease) stage 2, GFR 60-89 ml/min GFR 64-65, with Hx FLORESITA and GFR < 45 Primary hyperparathyroidism Complex medical condition Serious electrolyte imbalances, with gynecomastia, possible MEN Dx, CKD and anemia with baseline anxiety and Hx PTSD. Hypocalcemia Anxiety Depression Hyperlipidemia Family history of multiple endocrine neoplasia, type 1 PTSD (post-traumatic stress disorder) Per pt. states no triggers at this time. Surgical History History of laparoscopic cholecystectomy (~11/2023) H/O parathyroidectomy Family History Mother Anxiety Asthma Depression Sister Anxiety Depression Father Cancer lung & stomach Depression Diabetes Hypertension MEN 1 (multiple endocrine neoplasia) Social History Smoking/Tobacco Use Status: Never Smoking risk assessment performed?: Yes Alcohol Intake: never Drug use: Current Sobriety Substance use type: former substance user, crack/cocaine, heroin and painkillers Details: stopped using substances for the passed 4 years Adopted: No Caregiver/Support person: No Foster care: No Household members: none Housing: apartment Number of Children: 0 Communication Needs: None Education Level: high school Do you need help understanding health information?: Never 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[employer] Pets and animals: Yes (Ally) Pets and animals: dog(s) Sexually active: No Do you think of yourself as: straight/heterosexual Current gender identity: male What is your relationship status?: How often do you talk on the phone with friends or family?: twice per week How often do you get together with friends or relatives?: never Do you belong to any clubs or organized social groups?: no Panel score (0-1 are the most socially isolated patients): 0 What type of physical activity do you participate in: walking Duration: 15-30 minutes/day Frequency: 5-6 times per week Maryam/Confucianism: Judaism Special maryam needs: No Seatbelt use: always Helmet use: Yes Helmet use: always 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
[2024-06-01] MEDS: Lidocaine 5% Patch 1 PATCH TP (19:51)
[2024-06-01] MEDS: Ibuprofen 600 MG TAB PO (19:52)
[2024-06-01 20:06] LABS: HCT 34.1 % (40.0-50.0); HGB 11.1 g/dL (13.5-17.5); MCH 27.7 pg (27.0-33.0); MCHC 32.6 % (32.0-36.0); MCV 85 fL (80-95); MPV 10.3 fL (8.0-11.0); Platelet Count 295 10^3/uL (130-400); RBC 4.01 10^6/uL (4.36-5.78); RDW 14.2 % (11.8-14.1); RDW-SD 43.8 fL; WBC 9.23 10^3/uL (4.4-10.8)
[2024-06-01 20:16] LABS: Anion Gap 9.8 mmol/L (3-11); BUN 11 mg/dL (7-18); CO2 30.2 mmol/L (21.0-32.0); CREATININE 1.7 mg/dL (0.70-1.30); Calcium 9.7 mg/dL (8.5-10.1); Chloride 101 mmol/L (98-107); Estimated GFR 54.93 (mL/min/1.73m2); Glucose 91 mg/dL (74-106); Sodium 141 mmol/L (136-145)
== END 2024-06-01 20:42 | disposition home or self-care (01) ==
PROVIDERS: Emergency Provider Nurse Practitioner Family; PCP Family Medicine
DX: M54.6 Pain in thoracic spine (principal); N18.2 Chronic kidney disease, stage 2 (mild); E78.5 Hyperlipidemia, unspecified; E89.2 Postprocedural hypoparathyroidism
CPT/HCPCS: 80048; 85027; 99283; 81003

== ENCOUNTER 2024-06-05 17:00 | Emergency (ER) | payer OTHER, SELFPAY ==
--- NOTE | 2024-06-05 17:00 | RT.EKG_ITS ---
APPROVED REPORT Exam: Resting ECG Reason for Exam: chest wall pain. Patient Location: E HR:101 bpm ECG Measurements Heart Rate 101 AXIS OH 163 P 52 QRSd 94 QRS 47 QT 349 T 27 QTc 454 Conclusion Sinus tachycardia...rate> 99
[2024-06-05 17:02] VITALS: BP 103/71; PULSE 110; RESP 20; TEMP 36.8; O2SAT 94
[2024-06-05 17:05] VITALS: BP 103/71; PULSE 110; RESP 20; TEMP 36.8; O2SAT 94
--- NOTE | 2024-06-05 17:15 | DI.RAD_ITS ---
Exam(s) XR CHEST 2V PA LATERAL EXAM: XR CHEST 2V PA LATERAL CLINICAL HISTORY: cough left sided chest pain TECHNIQUE: 2D digital imaging was performed of the chest. Two images were obtained. PA and lateral views were obtained. COMPARISON: CR,XR XR CHEST 2V PA LATERAL from 05/08/2024 FINDINGS: MEDIASTINUM: Normal. HEART: Normal. PULMONARY VASCULATURE: Normal. LUNGS: Clear. PLEURAL SPACE: No pleural effusion or pneumothorax. BONE:Within normal limits for the patient's age. OTHER FINDINGS:Normal. IMPRESSION: No acute pulmonary findings. DATA REPOSITORY: RADIATION DOSE DELIVERED:
--- NOTE | 2024-06-05 17:22 | ED.GENADUL_ITS ---
Discharge Plan Disposition Patient Disposition: Home Condition: Stable Discharge Details Clinical Impression: Cough Primary Care Provider: Brendon Vivar ED Provider: Ricardo Crabtree Home Meds and New Rx's Prescriptions: Continued clonazepam 1 mg tablet 1 mg PO BID Qty: 56 0RF cyclobenzaprine 10 mg tablet 10 mg PO TID PRN (Reason: muscle spasm) Qty: 30 3RF gabapentin 300 mg capsule 300 mg PO BID Qty: 180 3RF methadone 10 mg/5 mL solution 100 mg PO QAM omeprazole 40 mg capsule,delayed release(DR/EC) 40 mg PO DAILY Qty: 90 3RF simethicone 125 mg tablet,chewable 125 mg PO QID PRN (Reason: abdominal distention) Qty: 20 3RF polyethylene glycol 3350 17 gram powder in packet 17 g PO DAILY Qty: 100 1RF calcium carbonate [Tums] 200 mg calcium (500 mg) tablet,chewable 2,000 mg PO BID prochlorperazine maleate 5 mg tablet 5 mg PO TID PRN (Reason: acute nausea) Qty: 30 0RF calcitriol 0.5 mcg capsule 1 mcg PO TID magnesium gluconate 27 mg magnesium (500 mg) tablet 13.5 mg PO TID Qty: 60 3RF promethazine 6.25 mg/5 mL syrup 12.5 mg PO Q6H PRN (Reason: cough) Qty: 120 0RF Discharge Instructions Additional Instructions: Your x-ray did not show any concerning findings at this time If symptoms continue this week follow-up with your primary care provider If you feel more ill, have severe worsening pain or new symptoms such as high fevers return to the emergency department for reevaluation HPI General Mode of arrival: ambulatory . Date/Time Provider Initiated Documentation: 06/05/24 17:02 . Limitations to Documentation: no limitations . Information obtained by: patient . History of Present Illness 28 year old M presents to the emergency department with the chief complaint of cough, described as moderate, Quality is described as aching, and is localized to the chest. Patient reports no radiation. Patient started experiencing this hour(s) (10) and it has been constant. No relieving factors improve symptom(s), Other factors that worsen symptoms (coughing) . Patient notes no other symptoms.. Patient did receive the following treatments prior to arrival, none Related Data Home Medications ?Medication ?Instructions ?Recorded ?Confirmed calcium carbonate (Tums) 2,000 mg PO BID 02/02/23 06/05/24 methadone 10 mg/5 mL oral solution 100 mg PO QAM 06/12/23 06/05/24 omeprazole 40 mg capsule,delayed 40 mg PO DAILY #90 caps 07/21/23 06/05/24 release prochlorperazine maleate 5 mg 5 mg PO TID PRN acute nausea #30 09/06/23 06/05/24 tablet tabs magnesium gluconate 27 mg 13.5 mg (1/2 x 27 mg magnesium 11/21/23 06/05/24 magnesium (500 mg) tablet (500 mg)) PO TID #60 tabs simethicone 125 mg chewable tablet 125 mg PO QID PRN abdominal 03/12/24 06/05/24 distention #20 tabs polyethylene glycol 3350 17 gram 17 g PO DAILY #100 ea 04/09/24 06/05/24 oral powder packet calcitriol 0.5 mcg capsule 1 mcg PO TID 04/17/24 06/05/24 promethazine 6.25 mg/5 mL oral 12.5 mg (10 mL) PO Q6H PRN cough 05/15/24 06/05/24 syrup #120 mL clonazepam 1 mg tablet 1 mg PO BID #56 tabs 06/01/24 06/05/24 cyclobenzaprine 10 mg tablet 10 mg PO TID PRN muscle spasm #30 06/01/24 06/05/24 tabs gabapentin 300 mg capsule 300 mg PO BID #180 caps 06/01/24 06/05/24 Previous Rx's ?Medication ?Instructions ?Recorded omeprazole 40 mg capsule,delayed 40 mg PO DAILY #90 caps 07/21/23 release prochlorperazine maleate 5 mg 5 mg PO TID PRN acute nausea #30 09/06/23 tablet tabs magnesium gluconate 27 mg 13.5 mg (1/2 x 27 mg magnesium 11/21/23 magnesium (500 mg) tablet (500 mg)) PO TID #60 tabs simethicone 125 mg chewable tablet 125 mg PO QID PRN abdominal 03/12/24 distention #20 tabs polyethylene glycol 3350 17 gram 17 g PO DAILY #100 ea 04/09/24 oral powder packet promethazine 6.25 mg/5 mL oral 12.5 mg (10 mL) PO Q6H PRN cough 05/15/24 syrup #120 mL clonazepam 1 mg tablet 1 mg PO BID #56 tabs 06/01/24 cyclobenzaprine 10 mg tablet 10 mg PO TID PRN muscle spasm #30 06/01/24 tabs gabapentin 300 mg capsule 300 mg PO BID #180 caps 06/01/24 Allergies Allergy/AdvReac Type Severity Reaction Status Date / Time codeine Allergy Intermediate pass out Verified 06/05/24 17:06 Penicillins Allergy Skin Rash Verified 06/05/24 17:06 amoxicillin AdvReac Intermediate Nausea Verified 06/05/24 17:06 dextromethorphan (From AdvReac Intermediate got Verified 06/05/24 17:06 NyQuil) really hot and sweaty doxylamine (From NyQuil) AdvReac Intermediate got Verified 06/05/24 17:06 really hot and sweaty pseudoephedrine (From NyQuil) AdvReac Intermediate got Verified 06/05/24 17:06 really hot and sweaty General Stated Complaint: RespSymp ADRIANA: 3 Review of Systems All systems reviewed & are unremarkable except as noted in HPI and below Constitutional Constitutional: Denies chills, Denies fever(s) and Denies weakness Cardiovascular Cardiovascular: Reports chest pain Respiratory Respiratory: Reports cough Gastrointestinal Gastrointestinal: Denies abdominal pain, Denies nausea and Denies vomiting Integumentary/Breasts Skin/Breast: Denies rash Neurologic Neurologic: Denies weakness Exam Const General: no acute distress Orientation: alert [facility] Head: normal to inspection Ears: external ears normal General nose exam: external nose normal Mouth: moist mucous membranes Eyes General: appearance normal, both eyes and all related structures Neck Neck: normal visual inspection Resp Effort & Inspection: normal respiratory effort and able to speak in complete sentences Auscultation: clear to auscultation bilaterally Cardio Jugular venous pressure: no JVD Rate: regular rate Heart Sounds: no murmurs Skin General skin exam: no rashes or lesions noted Neuro General: patient alert and patient oriented x3 Extrem General: normal to inspection Psych Mental Status: mental status grossly normal Course Vital Signs Vital signs: Vital Signs Temperature 36.8 C 06/05/24 17:02 Pulse 110 H 06/05/24 17:02 Respiratory Rate 20 06/05/24 17:02 Blood Pressure 103/71 06/05/24 17:02 Pulse Oximetry 94 06/05/24 17:02 Temperature 36.8 C 06/05/24 17:05 Temperature Source Oral 06/05/24 17:05 Pulse 110 H 06/05/24 17:05 Respiratory Rate 20 06/05/24 17:05 Blood Pressure 103/71 06/05/24 17:05 Blood Pressure Position Supine 06/05/24 17:05 Pulse Oximetry 94 06/05/24 17:05 Pain Level 8 06/05/24 17:05 Medical Decision Making 28-year-old male with a history of multiple endocrine neoplasia, who comes in today with a cough starting this morning and runny nose. He says that when he coughs left side of his chest hurts. Denies any pain with exertion or diaphoresis or vomiting. He has no JVD, no leg swelling or calf tenderness. He is no visible palpable deformities of the chest, he localizes the pain to the left lateral chest over the 4th through 5th ribs in the mid axillary line. Clear lung sounds. I suspect URI versus pneumonia, will check a chest x-ray. His symptoms are not consistent with other entities such as ACS PE or dissection. Patient stable, x-ray negative, I suspect he has a viral URI and has chest wall pain. Stable for discharge and will follow-up with his PCP, return precautions given Differential Diagnosis Differential Diagnosis: Pneumonia, pleurisy ECG Data Attestation: I personally reviewed and interpreted this ECG (s) as follows: Prior ECG tracings: available for review Interpretation: sinus tachycardia rate of 101 pr 163 no stemi Quality:SDOH Health Related Social Needs: Health related social needs transportation insecurity( Z59.82) PFSH All Active Problems (Updated 06/05/24 @ 18:39 by Ricardo Crabtree MD) Cough (Acute) Back pain (Acute) Chest pain (Acute) Facial paresthesia (Acute) Shoulder tendinitis (Acute) Tingling (Acute) URI (upper respiratory infection) (Acute) Cough (Acute) Acute pain of left foot (Acute) Chest pain (Acute) Right calf pain (Acute) IBS (irritable bowel syndrome) (Chronic) Pain of right calf (Acute) Obesity (Chronic) Migraine with aura (Acute) Insect bite of leg, right (Acute) Testicle lump (Acute) Hamstring tendinitis of left thigh (Acute) Pes anserine bursitis (Acute) Hypernatremia (Acute) Cervical radiculopathy (Acute) Left-sided Flower's palsy (Acute) Constipation (Acute) Grief reaction (Chronic) Opiate dependence, continuous (Acute) 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 Possible 2' Methadone, Clnzpm (?). Surg eval (+)/No further action. History of electrolyte imbalance (Acute) Neck pain on left side (Acute) with shoulder, upper back pain.. torticollis, radiating into left hip/leg Pulmonary nodule 1 cm or greater in diameter (Chronic) Therapeutic opioid induced constipation (Acute) Sphincter of Oddi dysfunction (Chronic) Abnormal CT scan, kidney (Acute) Intrahepatic bile duct dilation (Acute) Common bile duct dilatation (Chronic) Has been dilated for quite some time, now more-so. Normal LFTs. Known gallstones. Iatrogenic hypocalcemia (Acute) Multiple endocrine neoplasia type I (Chronic) Depression (Chronic) Hypocalcemia (Chronic) Elevated parathyroid hormone (Acute) Family history of coronary arteriosclerosis (Chronic) Father of PA at 50, mother had PA at 42 Severe anxiety with panic (Chronic) Medical History Urinary tract infection CKD (chronic kidney disease) stage 2, GFR 60-89 ml/min GFR 64-65, with Hx FLORESITA and GFR < 45 Primary hyperparathyroidism Complex medical condition Serious electrolyte imbalances, with gynecomastia, possible MEN Dx, CKD and anemia with baseline anxiety and Hx PTSD. Hypocalcemia Anxiety Depression Hyperlipidemia Family history of multiple endocrine neoplasia, type 1 PTSD (post-traumatic stress disorder) Per pt. states no triggers at this time. Surgical History History of laparoscopic cholecystectomy (~11/2023) H/O parathyroidectomy Family History Mother Anxiety Asthma Depression Sister Anxiety Depression Father Cancer lung & stomach Depression Diabetes Hypertension MEN 1 (multiple endocrine neoplasia) Social History Smoking/Tobacco Use Status: Never Smoking risk assessment performed?: Yes Alcohol Intake: never Drug use: Current Sobriety Substance use type: former substance user, crack/cocaine, heroin and painkillers Details: stopped using substances for the passed 4 years Adopted: No Caregiver/Support person: No Foster care: No Household members: none Housing: apartment Number of Children: 0 Communication Needs: None Education Level: high school Do you need help understanding health information?: Never current occupation: [employer] Pets and animals: Yes (Ally) Pets and animals: dog(s) Sexually active: No Do you think of yourself as: straight/heterosexual Current gender identity: male What is your relationship status?: How often do you talk on the phone with friends or family?: twice per week How often do you get together with friends or relatives?: never Do you belong to any clubs or organized social groups?: no Panel score (0-1 are the most socially isolated patients): 0 What type of physical activity do you participate in: walking Duration: 15-30 minutes/day Frequency: 5-6 times per week Maryam/Caodaism: Hinduism Special maryam needs: No Seatbelt use: always Helmet use: Yes Helmet use: always Drive intox or ride w/intox transit mixer driver: No Do you feel safe at home: Yes Do you feel safe in your relationship?: Yes
--- NOTE | 2024-06-05 19:26 | DI.VRAD_ITS ---
PROCEDURE INFORMATION: Exam: XR Chest Exam date and time: 06/05/2024 5:38 PM Age: 28 years old Clinical indication: Cough and shortness of breath TECHNIQUE: Imaging protocol: Radiologic exam of the chest. Views: 2 views. COMPARISON: CR XR CHEST 2V PA LATERAL 05/08/2024 5:23 PM FINDINGS: Lungs: Unremarkable. No consolidation. Pleural spaces: Unremarkable. No pleural effusion. No pneumothorax. Heart/Mediastinum: Unremarkable. No cardiomegaly. Bones/joints: Unremarkable. IMPRESSION: No acute findings. Dictated and Authenticated by: Trang Baldwin MD. Ordering:SHEMAR Silva MD
[2024-06-05 19:33] VITALS: BP 144/95; PULSE 105; TEMP 36.8; O2SAT 96
[2024-06-05 19:37] VITALS: BP 144/95; PULSE 105; RESP 20; TEMP 36.8; O2SAT 96
== END 2024-06-05 19:38 | disposition home or self-care (01) ==
PROVIDERS: Emergency Provider Emergency Medicine; PCP Family Medicine
DX: M54.12 Radiculopathy, cervical region (principal); M79.602 Pain in left arm
CPT/HCPCS: 87426; 93005; 99284; 71046; 93010; 99283

== ENCOUNTER 2024-06-06 14:28 | Emergency (ER) | payer OTHER, SELFPAY ==
[2024-06-06 14:29] VITALS: BP 118/81; PULSE 92; RESP 20; TEMP 36.2; O2SAT 98
--- NOTE | 2024-06-06 14:40 | W.ED.GENAD ---
Discharge Plan Disposition Patient Disposition: Home Condition: Stable Discharge Details Clinical Impression: Cervical radiculopathy, Arm pain, left Primary Care Provider: Brendon Vivar ED Provider: Lester Bundy Home Meds and New Rx's Prescriptions: Continued clonazepam 1 mg tablet 1 mg PO BID Qty: 56 0RF cyclobenzaprine 10 mg tablet 10 mg PO TID PRN (Reason: muscle spasm) Qty: 30 3RF gabapentin 300 mg capsule 300 mg PO BID Qty: 180 3RF methadone 10 mg/5 mL solution 100 mg PO QAM omeprazole 40 mg capsule,delayed release(DR/EC) 40 mg PO DAILY Qty: 90 3RF simethicone 125 mg tablet,chewable 125 mg PO QID PRN (Reason: abdominal distention) Qty: 20 3RF polyethylene glycol 3350 17 gram powder in packet 17 g PO DAILY Qty: 100 1RF calcium carbonate [Tums] 200 mg calcium (500 mg) tablet,chewable 2,000 mg PO BID prochlorperazine maleate 5 mg tablet 5 mg PO TID PRN (Reason: acute nausea) Qty: 30 0RF calcitriol 0.5 mcg capsule 1 mcg PO TID magnesium gluconate 27 mg magnesium (500 mg) tablet 13.5 mg PO TID Qty: 60 3RF promethazine 6.25 mg/5 mL syrup 12.5 mg PO Q6H PRN (Reason: cough) Qty: 120 0RF Discharge Instructions Instructions: Radiculopathy (DC), Neck Pain ED Additional Instructions: Please take ibuprofen over the counter. Take 600mg by mouth every 6 hours as needed for pain. Please contact your primary care physician to arrange follow-up. Return to the ER immediately for any worsening or new concerning symptoms. Referrals: Brendon Vivar DO [Primary Care Provider] - [facility] General Mode of arrival: ambulatory. Date/Time Provider Initiated Documentation: 06/06/24 14:29. Limitations to Documentation: no limitations. Information obtained by: patient. HPI Narrative: 28-year-old male with history of multiple medical problems, frequent ED visits, here with chief complaint of left posterior neck pain and left upper arm pain. Patient notes has had intermittent pain in his neck radiating to his left upper arm for months. Last night he slept in his recliner with his neck flexed and chin touching his chest. Today has had exacerbation of neck pain. Pain is worse when he flexes his neck and tilted laterally to the left. No associated numbness or weakness. Pain does radiate to his left shoulder and upper arm. No associated rash or fever. Related Data Home Medications ?Medication ?Instructions ?Recorded ?Confirmed calcium carbonate (Tums) 2,000 mg PO BID 02/02/23 06/06/24 methadone 10 mg/5 mL oral solution 100 mg PO QAM 06/12/23 06/06/24 omeprazole 40 mg capsule,delayed 40 mg PO DAILY #90 caps 07/21/23 06/06/24 release prochlorperazine maleate 5 mg 5 mg PO TID PRN acute nausea #30 09/06/23 06/06/24 tablet tabs magnesium gluconate 27 mg 13.5 mg (1/2 x 27 mg magnesium 11/21/23 06/06/24 magnesium (500 mg) tablet (500 mg)) PO TID #60 tabs simethicone 125 mg chewable tablet 125 mg PO QID PRN abdominal 03/12/24 06/06/24 distention #20 tabs polyethylene glycol 3350 17 gram 17 g PO DAILY #100 ea 04/09/24 06/06/24 oral powder packet calcitriol 0.5 mcg capsule 1 mcg PO TID 04/17/24 06/06/24 promethazine 6.25 mg/5 mL oral 12.5 mg (10 mL) PO Q6H PRN cough 05/15/24 06/06/24 syrup #120 mL clonazepam 1 mg tablet 1 mg PO BID #56 tabs 06/01/24 06/06/24 cyclobenzaprine 10 mg tablet 10 mg PO TID PRN muscle spasm #30 06/01/24 06/06/24 tabs gabapentin 300 mg capsule 300 mg PO BID #180 caps 06/01/24 06/06/24 Previous Rx's ?Medication ?Instructions ?Recorded omeprazole 40 mg capsule,delayed 40 mg PO DAILY #90 caps 07/21/23 release prochlorperazine maleate 5 mg 5 mg PO TID PRN acute nausea #30 09/06/23 tablet tabs magnesium gluconate 27 mg 13.5 mg (1/2 x 27 mg magnesium 11/21/23 magnesium (500 mg) tablet (500 mg)) PO TID #60 tabs simethicone 125 mg chewable tablet 125 mg PO QID PRN abdominal 03/12/24 distention #20 tabs polyethylene glycol 3350 17 gram 17 g PO DAILY #100 ea 04/09/24 oral powder packet promethazine 6.25 mg/5 mL oral 12.5 mg (10 mL) PO Q6H PRN cough 05/15/24 syrup #120 mL clonazepam 1 mg tablet 1 mg PO BID #56 tabs 06/01/24 cyclobenzaprine 10 mg tablet 10 mg PO TID PRN muscle spasm #30 06/01/24 tabs gabapentin 300 mg capsule 300 mg PO BID #180 caps 06/01/24 Allergies Allergy/AdvReac Type Severity Reaction Status Date / Time codeine Allergy Intermediate pass out Verified 06/06/24 14:33 Penicillins Allergy Skin Rash Verified 06/06/24 14:33 amoxicillin AdvReac Intermediate Nausea Verified 06/06/24 14:33 dextromethorphan (From AdvReac Intermediate got Verified 06/06/24 14:33 NyQuil) really hot and sweaty doxylamine (From NyQuil) AdvReac Intermediate got Verified 06/06/24 14:33 really hot and sweaty pseudoephedrine (From NyQuil) AdvReac Intermediate got Verified 06/06/24 14:33 really hot and sweaty General Stated Complaint: Orthopedic ADRIANA: 3 Review of Systems Constitutional Constitutional: Denies fever(s) Musculoskeletal Musculoskeletal: Reports as per HPI Neurologic Neurologic: Reports as per HPI Exam Const General: cooperative and no acute distress HENME Mouth: moist mucous membranes Eyes Conjunctivae: normal conjunctivae Sclera: normal sclerae Neck Neck: trachea midline and supple Resp Auscultation: clear to auscultation bilaterally, no rales, no rhonchi and no wheezes Cardio Rate: regular rate and not tachycardic Rhythm: regular rhythm Back/Spine/Pelvis Cervical Spine: cervical muscular tenderness, pain with cervical ROM (pain with flexion and tilt to left) and No cervical spinal tenderness Thoracic/Lumbar Spine: No thoracic spinal tenderness Skin General skin exam: no rashes or lesions noted Neuro General: patient alert, patient awake and tone normal Other: distal LUE sensation and motor intact Extrem General: no edema Left upper extremity: no joint enlargement, shoulder/upper arm Details: tenderness and axillary nerve sensory function normal; no swelling, no ecchymosis, no deformity and no unsual warmth, elbow/forearm Details: normal to inspection and wrist Details: radial pulse present Details: 1+ Course Vital Signs Vital signs: Vital Signs Temperature 36.2 C L 06/06/24 14:29 Pulse 92 H 06/06/24 14:29 Respiratory Rate 20 06/06/24 14:29 Blood Pressure 118/81 06/06/24 14:29 Pulse Oximetry 98 06/06/24 14:29 Temperature 36.2 C L 06/06/24 14:29 Temperature Source Oral 06/06/24 14:29 Pulse 92 H 06/06/24 14:29 Respiratory Rate 20 06/06/24 14:29 Blood Pressure 118/81 06/06/24 14:29 Blood Pressure Position Sitting 06/06/24 14:29 Pulse Oximetry 98 06/06/24 14:29 Oxygen Delivery Method Room Air 06/06/24 14:29 Oxygen Flow Rate 0 06/06/24 14:29 Medical Decision Making 28-year-old male with multiple medical problems, frequent ED visits for varying complaints, here today with acute exacerbation of left neck pain radiating to his left upper arm after sleeping in a recliner last night with neck flexed. Patient is neurologically intact. He does have tenderness in his left cervical paraspinal region as well as left shoulder and upper arm. No cutaneous findings. No neurological deficits. Suspect cervical sprain and spasm versus disc herniation with radiculopathy. Patient has not yet taken NSAIDs. I will give ibuprofen 600 mg. Usual customary discharge instructions were reviewed with the patient including expected course and return to ED precautions. Quality:[facility] Health Related Social Needs: Health related social needs transportation insecurity(Z59.82) [facility] All Active Problems Arm pain, left (Acute) Cervical radiculopathy (Acute) Cough (Acute) Back pain (Acute) Chest pain (Acute) Facial paresthesia (Acute) Shoulder tendinitis (Acute) Tingling (Acute) URI (upper respiratory infection) (Acute) Cough (Acute) Acute pain of left foot (Acute) Chest pain (Acute) Right calf pain (Acute) IBS (irritable bowel syndrome) (Chronic) Pain of right calf (Acute) Obesity (Chronic) Migraine with aura (Acute) Insect bite of leg, right (Acute) Testicle lump (Acute) Hamstring tendinitis of left thigh (Acute) Pes anserine bursitis (Acute) Hypernatremia (Acute) Cervical radiculopathy (Acute) Left-sided Flower's palsy (Acute) Constipation (Acute) Grief reaction (Chronic) Opiate dependence, continuous (Acute) 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 Possible 2' Methadone, Clnzpm (?). Surg eval (+)/No further action. History of electrolyte imbalance (Acute) Neck pain on left side (Acute) with shoulder, upper back pain.. torticollis, radiating into left hip/leg Pulmonary nodule 1 cm or greater in diameter (Chronic) Therapeutic opioid induced constipation (Acute) Sphincter of Oddi dysfunction (Chronic) Abnormal CT scan, kidney (Acute) Intrahepatic bile duct dilation (Acute) Common bile duct dilatation (Chronic) Has been dilated for quite some time, now more-so. Normal LFTs. Known gallstones. Iatrogenic hypocalcemia (Acute) Multiple endocrine neoplasia type I (Chronic) Depression (Chronic) Hypocalcemia (Chronic) Elevated parathyroid hormone (Acute) Family history of coronary arteriosclerosis (Chronic) Father of [place] at 50, mother had [place] at 42 Severe anxiety with panic (Chronic) Medical History Urinary tract infection CKD (chronic kidney disease) stage 2, GFR 60-89 ml/min GFR 64-65, with Hx FLORESITA and GFR < 45 Primary hyperparathyroidism Complex medical condition Serious electrolyte imbalances, with gynecomastia, possible MEN Dx, CKD and anemia with baseline anxiety and Hx PTSD. Hypocalcemia Anxiety Depression Hyperlipidemia Family history of multiple endocrine neoplasia, type 1 PTSD (post-traumatic stress disorder) Per pt. states no triggers at this time. Surgical History History of laparoscopic cholecystectomy (~11/2023) H/O parathyroidectomy Family History Mother Anxiety Asthma Depression Sister Anxiety Depression Father Cancer lung & stomach Depression Diabetes Hypertension MEN 1 (multiple endocrine neoplasia) Social History Smoking/Tobacco Use Status: Never Smoking risk assessment performed?: Yes Alcohol Intake: never Drug use: Current Sobriety Substance use type: former substance user, crack/cocaine, heroin and painkillers Details: stopped using substances for the passed 4 years Adopted: No Caregiver/Support person: No Foster care: No Household members: none Housing: apartment Number of Children: 0 Communication Needs: None Education Level: high school Do you need help understanding health information?: Never 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[employer] Pets and animals: Yes (Ally) Pets and animals: dog(s) Sexually active: No Do you think of yourself as: straight/heterosexual Current gender identity: male What is your relationship status?: How often do you talk on the phone with friends or family?: twice per week How often do you get together with friends or relatives?: never Do you belong to any clubs or organized social groups?: no Panel score (0-1 are the most socially isolated patients): 0 What type of physical activity do you participate in: walking Duration: 15-30 minutes/day Frequency: 5-6 times per week Maryam/Holiness: [employer] Special maryam needs: No Seatbelt use: always Helmet use: Yes Helmet use: always Drive intox or ride w/intox rail car driver: No Do you feel safe at home: Yes Do you feel safe in your relationship?: Yes
[2024-06-06] MEDS: Ibuprofen 600 MG TAB PO (15:06)
== END 2024-06-06 15:08 | disposition home or self-care (01) ==
LOC: ER 15:19
PROVIDERS: Emergency Provider Student in an Organized Health Care Education/Training Program; PCP Family Medicine
DX: M54.12 Radiculopathy, cervical region (principal); M79.602 Pain in left arm; Z59.82 Transportation insecurity
CPT/HCPCS: 99283

== ENCOUNTER 2024-06-08 02:48 | Outpatient (CLI) | payer MEDICAID, SELFPAY ==
--- NOTE | 2024-06-08 06:45 | DI.US_ITS ---
Exam(s) US SCROTUM EXAM: US SCROTUM CLINICAL HISTORY: LT testicluar mass,n50.89. TECHNIQUE: Scrotal ultrasound performed using grayscale, color-flow and spectral Doppler analysis. COMPARISON: CT CT ABDOMEN PELVIS W from 05/03/2023 US US SCROTUM from 08/15/2023 FINDINGS: RIGHT TESTICLE: 3.2 x 1.5 x 2 point cm Echogenicity: Normal. Contour: Smooth. Mass: None seen. Microlithiasis: None. Hydrocele: None. Varicocele: None. Hernia: No peristalsing bowel loop identified. Epididymis: Normal. Scrotum: Normal. LEFT TESTICLE: 3.1 x 1.2 x 2.2 cm Echogenicity: Normal. Contour: Smooth. Mass: Circumscribed hypoechoic mass measuring 5 x 4 x 4 millimeters. Mildly increased vascularity pe er no associated calcifications. Microlithiasis: None. Hydrocele: None. Varicocele: None. Hernia: No peristalsing bowel loop identified. Epididymis: Normal. Scrotum: Normal. DOPPLER: Color: Symmetric and uniform, no hyperemia. Duplex: Bilateral testicular arterial waveforms visualized. IMPRESSION: Slight interval increase in size of previously noted solid, vascular left testicular lesion. Benign tumor or malignancy should be considered. Biopsy recommended. Unexpected findings DATA REPOSITORY:
== END 2024-06-08 03:08 ==
LOC: DI 02:48
PROVIDERS: PCP Family Medicine; Visit Provider Nurse Practitioner Gerontology
DX: N50.89 Other specified disorders of the male genital organs (principal)
CPT/HCPCS: 76870

== ENCOUNTER 2024-06-12 21:33 | Emergency (ER) | payer OTHER, MEDICAID, SELFPAY ==
[2024-06-12] VITALS (20 sets, daily range): BP systolic 115–177; BP diastolic 40–95; PULSE 86–116; RESP 18–20; TEMP 36.2; O2SAT 95–99
--- NOTE | 2024-06-12 21:30 | RT.EKG_ITS ---
APPROVED REPORT Exam: Resting ECG Reason for Exam: Electrolytes Patient Location: E HR:113 bpm ECG Measurements Heart Rate 113 AXIS MT 167 P 46 QRSd 98 QRS 49 QT 343 T 23 QTc 470 Conclusion Sinus tachycardia, rate 113 Borderline prolonged QTc at 470, minimally increased from priors No STEMI
--- NOTE | 2024-06-12 21:45 | DI.RAD_ITS ---
Exam(s) XR CHEST 2V PA LATERAL EXAM: XR CHEST 2V PA LATERAL CLINICAL HISTORY: Center of back pain, SOB TECHNIQUE: 2D digital imaging was performed. Two views. COMPARISON: CR,XR XR CHEST 2V PA LATERAL from 06/05/2024 FINDINGS: HEART: Normal size. Aorta: Not dilated. PULMONARY VASCULATURE: Normal. MEDIASTINUM: Unremarkable. LUNGS: Clear. PLEURAL SPACE: No pleural effusion or pneumothorax. BONE:Unremarkable for age. SOFT TISSUES: Unremarkable. IMPRESSION: No acute abnormality. DATA REPOSITORY: RADIATION DOSE DELIVERED:
--- NOTE | 2024-06-12 21:51 | ED.GENADUL_ITS ---
Discharge Plan Disposition Patient Disposition: Home Condition: Stable Discharge Details Clinical Impression: Acute hypokalemia, History of electrolyte imbalance, Multiple endocrine neoplasia type I Primary Care Provider: Brendon Vivar ED Provider: Tere Adams Home Meds and New Rx's Prescriptions: No Action clonazepam 1 mg tablet 1 mg PO BID Qty: 56 0RF cyclobenzaprine 10 mg tablet 10 mg PO TID PRN (Reason: muscle spasm) Qty: 30 3RF gabapentin 300 mg capsule 300 mg PO BID Qty: 180 3RF methadone 10 mg/5 mL solution 100 mg PO QAM omeprazole 40 mg capsule,delayed release(DR/EC) 40 mg PO DAILY Qty: 90 3RF simethicone 125 mg tablet,chewable 125 mg PO QID PRN (Reason: abdominal distention) Qty: 20 3RF polyethylene glycol 3350 17 gram powder in packet 17 g PO DAILY Qty: 100 1RF calcium carbonate [Tums] 200 mg calcium (500 mg) tablet,chewable 2,000 mg PO BID prochlorperazine maleate 5 mg tablet 5 mg PO TID PRN (Reason: acute nausea) Qty: 30 0RF calcitriol 0.5 mcg capsule 1 mcg PO TID magnesium gluconate 27 mg magnesium (500 mg) tablet 13.5 mg PO TID Qty: 60 3RF promethazine 6.25 mg/5 mL syrup 12.5 mg PO Q6H PRN (Reason: cough) Qty: 120 0RF Discharge Instructions Instructions: Hypokalemia Additional Instructions: You were seen in the emergency department today for evaluation of palpitations, high blood pressure, and swelling of your feet. In our department a full physical examination performed, had laboratory studies that showed that your potassium was low, though your calcium, magnesium, and the remainder of your laboratory studies were normal for you. You did have an x-ray of your chest given your shortness of breath and palpitations which had not been read at the time that you left the hospital. You did not have any sign of anything concerning and we will call you if there is anything significant on the x-ray. I provided you with a dose of potassium here in the emergency department and you should continue all of your home medications as prescribed. Your primary care provider can recheck your potassium to ensure that it has returned to normal. Thank you for allowing us to be part of your care. HPI General Mode of arrival: ambulatory . Date/Time Provider Initiated Documentation: 06/12/24 21:43 . Limitations to Documentation: no limitations . Information obtained by: patient and old records reviewed . HPI Narrative: HPI: This is a 28-year-old male patient with a past medical history significant for M EN type I, with associated frequent hypocalcemia and hypomagnesemia, history of IBS, who is presenting for evaluation of hypertension and palpitations. The patient reports that he has not felt like himself since Friday, is worried that his electrolytes are abnormal. States that he has noted pain in the center of his back, feels his heart racing and checked his blood pressure at home and noted it to be in the 160s to 180s systolic. He states that because of his low magnesium he actually increase his magnesium supplementation over the last week. Feels like he is experiencing swelling in his feet and his shoes and socks feel very tight. Denies chest pain. Has noted some fatigue and increased tiredness at work, occasional shortness of breath without associated cough, upper respiratory symptoms, or fever. States that he had his gallbladder removed 6 months ago and still has some abdominal discomfort after eating, nausea that he associates with still trying to figure out what his postcholecystectomy diet should be. Exam: Gen: Awake and alert, in no apparent distress HEENT: Non-icteric sclera Neck: Supple Lungs: No apparent respiratory distress, normal respiratory effort. Lung sounds clear and equal bilaterally without wheezes, rhonchi, rales CV: Appears well perfused, heart with tachycardic rate but regular rhythm, no murmurs auscultated Abdomen: Non-distended, soft, nontender to palpation MSK: Moves 4 extremities without apparent limitation in ROM Skin: Visualized skin without rashes, cyanosis. The patient has no significant peripheral edema no unilateral swelling of the lower extremities. Neuro: Normal Gait, no obvious focal deficits or facial asymmetry. Speaks in full, clear sentences. Psych: Appropriate for situation. MDM: This is a 28-year-old male patient presenting for evaluation of back pain, palpitations, and high blood pressure. Differential includes but is not limited to arrhythmia, considered ACS though the patient is young and without risk factors or chest pain. Considered metabolic derangement especially in setting of his history of DM1. Considered kidney injury, liver disease, fluid overload, as well as pulmonary abnormalities including pneumonia, URI, bronchitis. Will obtain EKG, chest x-ray, and laboratory studies to include CBC, CMP, magnesium, troponin, and BNP. ED Course: I reviewed the patient's laboratory studies, which show no leukocytosis, stable anemia and no thrombocytopenia. Chemistry panel is most notable for a hypokalemia to 3.3, which is new for this patient. He does have a baseline elevation in his bicarb and creatinine, stable magnesium at 1.7 and a stable calcium and 8.5. No evidence of significant liver dysfunction, and the troponin and BNP are low. I independently interpreted the patient's chest x-ray, which does not show any significant abnormalities such as pulmonary edema, pleural effusion, or lobar pneumonia. I did share these findings with the patient, and provided him with an oral dose of potassium. We discussed potassium rich foods, and he is desiring to discharge home and feels improved at this time. He has had resolution of his tachycardia and his EKG showed no evidence of interval abnormality or ectopy that requires emergency intervention. The patient's x-ray was pending formal radiology read at the time that he discharged, but at this time, the patient has had a full medical evaluation and is safe for discharge to home. They are hemodynamically stable, ambulatory, and tolerating PO. They are understanding of the follow-up plan and return precautions. They left our facility without incident. Tere Adams MD Related Data Home Medications ?Medication ?Instructions ?Recorded ?Confirmed calcium carbonate (Tums) 2,000 mg PO BID 02/02/23 06/12/24 methadone 10 mg/5 mL oral solution 100 mg PO QAM 06/12/23 06/12/24 omeprazole 40 mg capsule,delayed 40 mg PO DAILY #90 caps 07/21/23 06/12/24 release prochlorperazine maleate 5 mg 5 mg PO TID PRN acute nausea #30 09/06/23 06/12/24 tablet tabs magnesium gluconate 27 mg 13.5 mg (1/2 x 27 mg magnesium 11/21/23 06/12/24 magnesium (500 mg) tablet (500 mg)) PO TID #60 tabs simethicone 125 mg chewable tablet 125 mg PO QID PRN abdominal 03/12/24 06/12/24 distention #20 tabs polyethylene glycol 3350 17 gram 17 g PO DAILY #100 ea 04/09/24 06/12/24 oral powder packet calcitriol 0.5 mcg capsule 1 mcg PO TID 04/17/24 06/12/24 promethazine 6.25 mg/5 mL oral 12.5 mg (10 mL) PO Q6H PRN cough 05/15/24 06/12/24 syrup #120 mL clonazepam 1 mg tablet 1 mg PO BID #56 tabs 06/01/24 06/12/24 cyclobenzaprine 10 mg tablet 10 mg PO TID PRN muscle spasm #30 06/01/24 06/12/24 tabs gabapentin 300 mg capsule 300 mg PO BID #180 caps 06/01/24 06/12/24 Previous Rx's ?Medication ?Instructions ?Recorded omeprazole 40 mg capsule,delayed 40 mg PO DAILY #90 caps 07/21/23 release prochlorperazine maleate 5 mg 5 mg PO TID PRN acute nausea #30 09/06/23 tablet tabs magnesium gluconate 27 mg 13.5 mg (1/2 x 27 mg magnesium 11/21/23 magnesium (500 mg) tablet (500 mg)) PO TID #60 tabs simethicone 125 mg chewable tablet 125 mg PO QID PRN abdominal 03/12/24 distention #20 tabs polyethylene glycol 3350 17 gram 17 g PO DAILY #100 ea 04/09/24 oral powder packet promethazine 6.25 mg/5 mL oral 12.5 mg (10 mL) PO Q6H PRN cough 05/15/24 syrup #120 mL clonazepam 1 mg tablet 1 mg PO BID #56 tabs 06/01/24 cyclobenzaprine 10 mg tablet 10 mg PO TID PRN muscle spasm #30 06/01/24 tabs gabapentin 300 mg capsule 300 mg PO BID #180 caps 06/01/24 Allergies Allergy/AdvReac Type Severity Reaction Status Date / Time codeine Allergy Intermediate pass out Verified 06/07/24 13:35 Penicillins Allergy Skin Rash Verified 06/07/24 13:35 amoxicillin AdvReac Intermediate Nausea Verified 06/07/24 13:35 dextromethorphan (From AdvReac Intermediate got Verified 06/07/24 13:35 NyQuil) really hot and sweaty doxylamine (From NyQuil) AdvReac Intermediate got Verified 06/07/24 13:35 really hot and sweaty pseudoephedrine (From NyQuil) AdvReac Intermediate got Verified 06/07/24 13:35 really hot and sweaty General Stated Complaint: GenMedical ADRIANA: 3 Course Vital Signs Vital signs: Vital Signs Temperature 36.2 C L 06/12/24 21:36 Pulse 112 H 06/12/24 21:36 Respiratory Rate 20 06/12/24 21:36 Blood Pressure 177/95 H 06/12/24 21:36 Pulse Oximetry 98 06/12/24 21:36 Temperature 36.2 C L 06/12/24 21:39 Temperature Source Tympanic 06/12/24 21:39 Pulse 112 H 06/12/24 21:39 Respiratory Rate 20 06/12/24 21:39 Respiratory Effort Normal 06/12/24 21:39 Respiratory Depth Normal 06/12/24 21:39 Respiratory Pattern Normal 06/12/24 21:39 Blood Pressure 177/95 H 06/12/24 21:39 Blood Pressure Position Sitting 06/12/24 21:39 Pulse Oximetry 98 06/12/24 21:39 Oxygen Delivery Method Room Air 06/12/24 21:39 Oxygen Flow Rate 0 06/12/24 21:39 Medical Decision Making Quality:SDOH Health Related Social Needs: Health related social needs transportation insecurity( Z59.82) PFSH All Active Problems (Updated 06/12/24 @ 22:58 by Tere Adams MD) Acute hypokalemia (Acute) Arm pain, left (Acute) Cervical radiculopathy (Acute) Cough (Acute) Back pain (Acute) Chest pain (Acute) Facial paresthesia (Acute) Shoulder tendinitis (Acute) Tingling (Acute) URI (upper respiratory infection) (Acute) Cough (Acute) Acute pain of left foot (Acute) IBS (irritable bowel syndrome) (Chronic) Pain of right calf (Acute) Obesity (Chronic) Migraine with aura (Acute) Insect bite of leg, right (Acute) Testicle lump (Acute) Hamstring tendinitis of left thigh (Acute) Pes anserine bursitis (Acute) Hypernatremia (Acute) Cervical radiculopathy (Acute) Left-sided Flower's palsy (Acute) Constipation (Acute) Grief reaction (Chronic) Opiate dependence, continuous (Acute) 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 Possible 2' Methadone, Clnzpm (?). Surg eval (+)/No further action. History of electrolyte imbalance (Acute) Neck pain on left side (Acute) with shoulder, upper back pain.. torticollis, radiating into left hip/leg Pulmonary nodule 1 cm or greater in diameter (Chronic) Therapeutic opioid induced constipation (Acute) Sphincter of Oddi dysfunction (Chronic) Abnormal CT scan, kidney (Acute) Intrahepatic bile duct dilation (Acute) Common bile duct dilatation (Chronic) Has been dilated for quite some time, now more-so. Normal LFTs. Known gallstones. Iatrogenic hypocalcemia (Acute) Multiple endocrine neoplasia type I (Chronic) Depression (Chronic) Hypocalcemia (Chronic) Elevated parathyroid hormone (Acute) Family history of coronary arteriosclerosis (Chronic) Father of IA at 50, mother had IA at 42 Severe anxiety with panic (Chronic) Medical History Urinary tract infection CKD (chronic kidney disease) stage 2, GFR 60-89 ml/min GFR 64-65, with Hx FLORESITA and GFR < 45 Primary hyperparathyroidism Complex medical condition Serious electrolyte imbalances, with gynecomastia, possible MEN Dx, CKD and anemia with baseline anxiety and Hx PTSD. Hypocalcemia Anxiety Depression Hyperlipidemia Family history of multiple endocrine neoplasia, type 1 PTSD (post-traumatic stress disorder) Per pt. states no triggers at this time. Surgical History History of laparoscopic cholecystectomy (~11/2023) H/O parathyroidectomy Family History Mother Anxiety Asthma Depression Sister Anxiety Depression Father Cancer lung & stomach Depression Diabetes Hypertension MEN 1 (multiple endocrine neoplasia) Social History Smoking/Tobacco Use Status: Never Smoking risk assessment performed?: Yes Alcohol Intake: never Drug use: Current Sobriety Substance use type: former substance user, crack/cocaine, heroin and painkille rs Details: stopped using substances for the passed 4 years Adopted: No Caregiver/Support person: No Foster care: No Household members: none Housing: apartment Number of Children: 0 Communication Needs: None Education Level: high school Do you need help understanding health information?: Never current occupation: [employer] Pets and animals: Yes (Ally) Pets and animals: dog(s) Sexually active: No Do you think of yourself as: straight/heterosexual Current gender identity: male What is your relationship status?: How often do you talk on the phone with friends or family?: twice per week How often do you get together with friends or relatives?: never Do you belong to any clubs or organized social groups?: no Panel score (0-1 are the most socially isolated patients): 0 What type of physical activity do you participate in: walking Duration: 15-30 minutes/day Frequency: 5-6 times per week Maryam/[employer] Special maryam needs: No Seatbelt use: always Helmet use: Yes Helmet use: always Drive intox or ride w/intox bus driver/monitor: No Do you feel safe at home: Yes Do you feel safe in your relationship?: Yes
[2024-06-12 22:18] LABS: Abs Immature Grans 0.02 10^3/uL (0.0-0.06); Absolute Basophil Count 0.03 10^3/uL (0.0-0.2); Absolute Monocyte Count 0.93 10^3/uL (0.1-0.8); Absolute Neutrophil Count 3.91 10^3/uL (1.2-6.7); Basophils % 0.4 %; Eosinophils % 2.6 %; HCT 34.4 % (40.0-50.0); HGB 10.9 g/dL (13.5-17.5); Immature Grans % 0.3 %; Lymphocytes % 32.9 %; MCH 27.9 pg (27.0-33.0); MCHC 31.7 % (32.0-36.0); MCV 88 fL (80-95); Monocytes % 12.3 %; Neutrophils % 51.5 %; Platelet Count 350 10^3/uL (130-400); RBC 3.91 10^6/uL (4.36-5.78); RDW 14.6 % (11.8-14.1); RDW-SD 46.3 fL; WBC 7.59 10^3/uL (4.4-10.8)
[2024-06-12 22:42] LABS: ALT 26 U/L (16-63); AST 21 U/L (15-37); Albumin 3.1 g/dL (3.4-5.0); Alkaline Phosphatase 138 U/L (46-116); Anion Gap 4.8 mmol/L (3-11); BUN 18 mg/dL (7-18); Bilirubin, Total 0.21 mg/dL (0.2-1.0); CO2 33.2 mmol/L (21.0-32.0); CREATININE 1.7 mg/dL (0.70-1.30); Calcium 8.5 mg/dL (8.5-10.1); Chloride 104 mmol/L (98-107); Estimated GFR 54.93 (mL/min/1.73m2); Glucose 86 mg/dL (74-106); Magnesium 1.7 mg/dL (1.8-2.4); NT-proBNP 34 pg/mL (<300); Potassium 3.3 mmol/L (3.5-5.1); Sodium 142 mmol/L (136-145); Total Protein 7.6 g/dL (6.4-8.2)
[2024-06-12 22:44] LABS: Troponin I < 4 ng/L (<or=76)
[2024-06-12] MEDS: Potassium Chloride 20 MEQ TABCR 40 MEQ PO (22:55)
--- NOTE | 2024-06-12 23:53 | DI.VRAD_ITS ---
PROCEDURE INFORMATION: Exam: XR Chest Exam date and time: 06/12/2024 10:34 PM Age: 28 years old Clinical indication: Other: Center of back pain, SOB TECHNIQUE: Imaging protocol: Radiologic exam of the chest. Views: 2 views. COMPARISON: CR XR CHEST 2V PA LATERAL 06/05/2024 5:38 PM FINDINGS: Lungs: Unremarkable. No consolidation. Pleural spaces: Unremarkable. No pleural effusion. No pneumothorax. Heart/Mediastinum: Unremarkable. No cardiomegaly. Bones/joints: Unremarkable. IMPRESSION: No acute findings. Dictated and Authenticated by: Andrei Cantu MD. Ordering:NURIS Watt MD
== END 2024-06-12 23:04 | disposition home or self-care (01) ==
PROVIDERS: Emergency Provider Emergency Medicine; PCP Family Medicine
DX: E87.6 Hypokalemia (principal); I10 Essential (primary) hypertension; Z86.39 Personal history of other endocrine, nutritional and metabolic disease; E31.21 Multiple endocrine neoplasia [MEN] type I; R22.43 Localized swelling, mass and lump, lower limb, bilateral
CPT/HCPCS: 80053; 93005; 99284; 71046; 83735; 83880; 84484; 85025; 93010

== ENCOUNTER 2024-06-14 09:55 | Emergency (ER) | payer OTHER, SELFPAY ==
--- NOTE | 2024-06-14 10:00 | RT.EKG_ITS ---
APPROVED REPORT Exam: Resting ECG Reason for Exam: near syncop Patient Location: E HR:114 bpm ECG Measurements Heart Rate 114 AXIS MT 172 P 55 QRSd 94 QRS 37 QT 332 T 38 QTc 457 Conclusion Sinus tachycardia...rate> 99 I have reviewed and interpreted ECG and agree with software generated interpretation.
--- NOTE | 2024-06-14 10:05 | W.ED.GENAD ---
Discharge Plan Disposition Patient Disposition: Home Condition: Good Discharge Details Clinical Impression: Dehydration Primary Care Provider: Brendon Vivar ED Provider: Richy Eagle Home Meds and New Rx's Prescriptions: No Action clonazepam 1 mg tablet 1 mg PO BID Qty: 56 0RF cyclobenzaprine 10 mg tablet 10 mg PO TID PRN (Reason: muscle spasm) Qty: 30 3RF gabapentin 300 mg capsule 300 mg PO BID Qty: 180 3RF methadone 10 mg/5 mL solution 100 mg PO QAM omeprazole 40 mg capsule,delayed release(DR/EC) 40 mg PO DAILY Qty: 90 3RF simethicone 125 mg tablet,chewable 125 mg PO QID PRN (Reason: abdominal distention) Qty: 20 3RF polyethylene glycol 3350 17 gram powder in packet 17 g PO DAILY Qty: 100 1RF calcium carbonate [Tums] 200 mg calcium (500 mg) tablet,chewable 2,000 mg PO BID prochlorperazine maleate 5 mg tablet 5 mg PO TID PRN (Reason: acute nausea) Qty: 30 0RF calcitriol 0.5 mcg capsule 1 mcg PO TID magnesium gluconate 27 mg magnesium (500 mg) tablet 13.5 mg PO TID Qty: 60 3RF promethazine 6.25 mg/5 mL syrup 12.5 mg PO Q6H PRN (Reason: cough) Qty: 120 0RF Discharge Instructions Instructions: Dehydration, Adult ED Additional Instructions: At this time your workup has returned and is reassuring. Magnesium is slightly low, I would recommend transitioning to 2 g daily for the next 24 to 48 hours. Please drink 10 to 12 cups of water electrolyte solution per day while you are in the hot and sweaty environments. If you notice any worsening of your symptoms, or any new symptoms such as vomiting, diarrhea, fever, chills, shortness of breath, chest pain, numbness, weakness, or fainting , please return immediately to the emergency department for reevaluation. Please follow up with your primary care provider as soon as possible for reassessment and reevaluation. As always, it was a pleasure participating in your medical care today. Referrals: Brendon Vivar DO [Primary Care Provider] - Discharge Data Discharge Date/Time-TO BE ENTERED AT DEPARTURE: 06/14/24 12:40 HPI General Date/Time Provider Initiated Documentation: 06/14/24 10:03. HPI Narrative: This is a 28-year-old male with a past medical history significant for anxiety, depression, high cholesterol, men type I, multiple electrolyte abnormalities with [place] [facility] [place], GERD, cholecystectomy 12/07. Who presents today for near syncope. 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 He has found that over the last week while performing these activities he has been mildly short of breath and lightheaded. He gets hot and sweaty, and this seems to make his symptoms worse. He also admits to mild left arm and shoulder achiness. He states that today he got very hot and sweaty and felt quite lightheaded and felt like he was going to pass out but he did not syncopized. He states he drinks about 2 cups of water per day in total. He states he has been taking his other medications as prescribed. He denies any fever or chills. He denies any headache. He denies any pleuritic chest pain. He does have a history of a blood clot in his leg in the distant past, but is not on chronic anticoagulation. No other complaints at this time. No other modifying factors. Related Data Home Medications ?Medication ?Instructions ?Recorded ?Confirmed calcium carbonate (Tums) 2,000 mg PO BID 02/02/23 06/14/24 methadone 10 mg/5 mL oral solution 100 mg PO QAM 06/12/23 06/14/24 omeprazole 40 mg capsule,delayed 40 mg PO DAILY #90 caps 07/21/23 06/14/24 release prochlorperazine maleate 5 mg 5 mg PO TID PRN acute nausea #30 09/06/23 06/14/24 tablet tabs magnesium gluconate 27 mg 13.5 mg (1/2 x 27 mg magnesium 11/21/23 06/14/24 magnesium (500 mg) tablet (500 mg)) PO TID #60 tabs simethicone 125 mg chewable tablet 125 mg PO QID PRN abdominal 03/12/24 06/14/24 distention #20 tabs polyethylene glycol 3350 17 gram 17 g PO DAILY #100 ea 04/09/24 06/14/24 oral powder packet calcitriol 0.5 mcg capsule 1 mcg PO TID 04/17/24 06/14/24 promethazine 6.25 mg/5 mL oral 12.5 mg (10 mL) PO Q6H PRN cough 05/15/24 06/14/24 syrup #120 mL clonazepam 1 mg tablet 1 mg PO BID #56 tabs 06/01/24 06/14/24 cyclobenzaprine 10 mg tablet 10 mg PO TID PRN muscle spasm #30 06/01/24 06/14/24 tabs gabapentin 300 mg capsule 300 mg PO BID #180 caps 06/01/24 06/14/24 Previous Rx's ?Medication ?Instructions ?Recorded omeprazole 40 mg capsule,delayed 40 mg PO DAILY #90 caps 07/21/23 release prochlorperazine maleate 5 mg 5 mg PO TID PRN acute nausea #30 09/06/23 tablet tabs magnesium gluconate 27 mg 13.5 mg (1/2 x 27 mg magnesium 11/21/23 magnesium (500 mg) tablet (500 mg)) PO TID #60 tabs simethicone 125 mg chewable tablet 125 mg PO QID PRN abdominal 03/12/24 distention #20 tabs polyethylene glycol 3350 17 gram 17 g PO DAILY #100 ea 04/09/24 oral powder packet promethazine 6.25 mg/5 mL oral 12.5 mg (10 mL) PO Q6H PRN cough 05/15/24 syrup #120 mL clonazepam 1 mg tablet 1 mg PO BID #56 tabs 06/01/24 cyclobenzaprine 10 mg tablet 10 mg PO TID PRN muscle spasm #30 06/01/24 tabs gabapentin 300 mg capsule 300 mg PO BID #180 caps 06/01/24 Allergies Allergy/AdvReac Type Severity Reaction Status Date / Time codeine Allergy Intermediate pass out Verified 06/14/24 10:12 Penicillins Allergy Skin Rash Verified 06/14/24 10:12 amoxicillin AdvReac Intermediate Nausea Verified 06/14/24 10:12 dextromethorphan (From AdvReac Intermediate got Verified 06/14/24 10:12 NyQuil) really hot and sweaty doxylamine (From NyQuil) AdvReac Intermediate got Verified 06/14/24 10:12 really hot and sweaty pseudoephedrine (From NyQuil) AdvReac Intermediate got Verified 06/14/24 10:12 really hot and sweaty General ADRIANA: 3 Exam Narrative Exam Narrative: 1.Const: Well-nourished, Well-developed, appearing stated age 2.Eyes: PERRL, no conjunctival injection, and symmetrical lids. 3.ENT: Atraumatic external nose and ears. Dry MM. Neck: Symmetric, trachea midline, No thyromegaly. 4.CVS: +S1/S2, Peripheral pulses 2+ and equal in all extremities. Brisk capillary refill in all extremities. 5.RESP: Unlabored respiratory effort. Clear to auscultation bilaterally. No wheezes rales or rhonchi 6.GI: Soft, Nontender/Nondistended, No hepatosplenomegaly. No guarding or rebound. 7.MSK: Normocephalic/Atraumatic, Extremities w/o deformity or ttp No cyanosis or clubbing, Normal movement of all extremities. Left upper extremity demonstrates good range of motion with no focal tenderness. 8.Skin: Warm, Dry. No rashes or lesions. 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 Sensation grossly intact, no focal neurologic deficits. 10.Psych: (AAO) x3. Appropriate mood and affect Medical Decision Making This is a 28-year-old male with a past medical history significant for anxiety, depression, high cholesterol, men type I, multiple electrolyte abnormalities with [place] [facility] [place], GERD, cholecystectomy 12/07. Who presents today for near syncope. 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 He has found that over the last week while performing these activities he has been mildly short of breath and lightheaded. He gets hot and sweaty, and this seems to make his symptoms worse. He also admits to mild left arm and shoulder achiness. He states that today he got very hot and sweaty and felt quite lightheaded and felt like he was going to pass out but he did not syncopized. He states he drinks about 2 cups of water per day in total. He states he has been taking his other medications as prescribed. He denies any fever or chills. He denies any headache. He denies any pleuritic chest pain. He does have a history of a blood clot in his leg in the distant past, but is not on chronic anticoagulation. No other complaints at this time. No other modifying factors. Exam demonstrates well-appearing male, vital signs stable aside from mild tachycardia, mucous membranes notably dry. Left shoulder is unremarkable for any tenderness to suggest osseous abnormality. No history of trauma. Range of motion is excellent. Patient is tachycardic in the 120s and with his dry mucous membranes concern for dehydration, especially as the potential cause of his near syncope. Cardiac etiology on the differential but less likely. No family history of sudden cardiac . We will evaluate for his electrolyte status, rehydrate with a liter of fluid which I feel is indicated given his symptoms, will get an EKG, monitor closely and reassess. 2 PM On reassessment after liter fluid patient feels much better and feels well. Laboratory workup demonstrates stable blood work, stable renal function and electrolytes, D-dimer negative, no suggestion of PE based on clinical assessment and years algorithm. Magnesium minimally low at 1.7. Recommend bumping up from 1500 to 2 g daily for the next few days. Patient otherwise feels well. Thyroid function normal. Troponin normal. EKG stable. Recommend good hydration throughout the day at work, specially around 10 to 12 cups of electrolyte supportive solution. No evidence to suggest hokum, severe dysrhythmia, or other abnormality at this time. Patient will be discharged home. I have extensively reviewed the treatment plan and discharge instructions with the patient. I have addressed all patient concerns at this time. The patient was made aware of what symptoms to monitor for that would warrant a return to the emergency department. Discussed the plan with the patient, they demonstrate verbal understanding and agreement with our assessment and plan at this time. The documentation in this chart was dictated using [employer] dictation software. Please excuse any dictation errors. Quality:SDOH Health Related Social Needs: Health related social needs transportation insecurity(Z59.82) PFSH All Active Problems (Updated 06/14/24 @ 12:31 by Richy Eagle DO) Dehydration (Acute) Acute hypokalemia (Acute) Arm pain, left (Acute) Cervical radiculopathy (Acute) Cough (Acute) Back pain (Acute) Chest pain (Acute) Facial paresthesia (Acute) Shoulder tendinitis (Acute) Tingling (Acute) URI (upper respiratory infection) (Acute) Cough (Acute) Acute pain of left foot (Acute) IBS (irritable bowel syndrome) (Chronic) Pain of right calf (Acute) Obesity (Chronic) Migraine with aura (Acute) Insect bite of leg, right (Acute) Testicle lump (Acute) Hamstring tendinitis of left thigh (Acute) Pes anserine bursitis (Acute) Hypernatremia (Acute) Cervical radiculopathy (Acute) Left-sided Flower's palsy (Acute) Constipation (Acute) Grief reaction (Chronic) Opiate dependence, continuous (Acute) 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 Possible 2' Methadone, Clnzpm (?). Surg eval (+)/No further action. History of electrolyte imbalance (Acute) Neck pain on left side (Acute) with shoulder, upper back pain.. torticollis, radiating into left hip/leg Pulmonary nodule 1 cm or greater in diameter (Chronic) Therapeutic opioid induced constipation (Acute) Sphincter of Oddi dysfunction (Chronic) Abnormal CT scan, kidney (Acute) Intrahepatic bile duct dilation (Acute) Common bile duct dilatation (Chronic) Has been dilated for quite some time, now more-so. Normal LFTs. Known gallstones. Iatrogenic hypocalcemia (Acute) Multiple endocrine neoplasia type I (Chronic) Depression (Chronic) Hypocalcemia (Chronic) Elevated parathyroid hormone (Acute) Family history of coronary arteriosclerosis (Chronic) Father of MA at 50, mother had MA at 42 Severe anxiety with panic (Chronic) Medical History Urinary tract infection CKD (chronic kidney disease) stage 2, GFR 60-89 ml/min GFR 64-65, with Hx FLORESITA and GFR < 45 Primary hyperparathyroidism Complex medical condition Serious electrolyte imbalances, with gynecomastia, possible MEN Dx, CKD and anemia with baseline anxiety and Hx PTSD. Hypocalcemia Anxiety Depression Hyperlipidemia Family history of multiple endocrine neoplasia, type 1 PTSD (post-traumatic stress disorder) Per pt. states no triggers at this time. Surgical History History of laparoscopic cholecystectomy (~11/2023) H/O parathyroidectomy Family History Mother Anxiety Asthma Depression Sister Anxiety Depression Father Cancer lung & stomach Depression Diabetes Hypertension MEN 1 (multiple endocrine neoplasia) Social History Smoking/Tobacco Use Status: Never Smoking risk assessment performed?: Yes Alcohol Intake: current Alcohol Intake frequency: holidays/special occasions only Alcohol type: beer Drug use: Current Sobriety Substance use type: former substance user, crack/cocaine, heroin and painkillers Details: stopped using substances for the passed 4 years Adopted: No Caregiver/Support person: No Foster care: No Household members: none Housing: apartment Number of Children: 0 Communication Needs: None Education Level: high school Do you need help understanding health information?: Never 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 [employer] Pets and animals: Yes (Ally) Pets and animals: dog(s) Sexually active: No Do you think of yourself as: straight/heterosexual Current gender identity: male What is your relationship status?: How often do you talk on the phone with friends or family?: twice per week How often do you get together with friends or relatives?: never Do you belong to any clubs or organized social groups?: no Panel score (0-1 are the most socially isolated patients): 0 What type of physical activity do you participate in: walking Duration: 15-30 minutes/day Frequency: 5-6 times per week Maryam/Roman Catholic: Gnosticist Special maryam needs: No Seatbelt use: always Helmet use: Yes Helmet use: always 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 Do you feel safe at home: Yes Do you feel safe in your relationship?: Yes
[2024-06-14 10:10] VITALS: BP 120/81; PULSE 120; RESP 15; TEMP 37.1
[2024-06-14 10:53] LABS: Abs Immature Grans 0.02 10^3/uL (0.0-0.06); Absolute Basophil Count 0.04 10^3/uL (0.0-0.2); Absolute Eosinophil Count 0.11 10^3/uL (0.0-0.7); Absolute Lymphocyte Count 1.62 10^3/uL (1.2-3.4); Absolute Monocyte Count 0.65 10^3/uL (0.1-0.8); Absolute Neutrophil Count 5.69 10^3/uL (1.2-6.7); Basophils % 0.5 %; Eosinophils % 1.4 %; HCT 34.2 % (40.0-50.0); HGB 10.8 g/dL (13.5-17.5); Immature Grans % 0.2 %; Lymphocytes % 19.9 %; MCH 27.6 pg (27.0-33.0); MCHC 31.6 % (32.0-36.0); MCV 87 fL (80-95); Platelet Count 337 10^3/uL (130-400); RBC 3.92 10^6/uL (4.36-5.78); RDW 14.5 % (11.8-14.1); RDW-SD 45.8 fL; WBC 8.13 10^3/uL (4.4-10.8)
[2024-06-14] MEDS: Normal Saline 1,000 ML 1000 ML IV (11:16)
[2024-06-14 11:19] LABS: D-Dimer 296 ng/mlFEU (<500)
[2024-06-14 11:25] LABS: ALT 26 U/L (16-63); AST 23 U/L (15-37); Albumin 3.1 g/dL (3.4-5.0); Alkaline Phosphatase 148 U/L (46-116); Anion Gap 7.7 mmol/L (3-11); BUN 13 mg/dL (7-18); Bilirubin, Total 0.13 mg/dL (0.2-1.0); CO2 30.3 mmol/L (21.0-32.0); CREATININE 1.5 mg/dL (0.70-1.30); Calcium 9.2 mg/dL (8.5-10.1); Chloride 103 mmol/L (98-107); Estimated GFR 63.83 (mL/min/1.73m2); Glucose 94 mg/dL (74-106); Magnesium 1.7 mg/dL (1.8-2.4); NT-proBNP 14 pg/mL (<300); Potassium 3.9 mmol/L (3.5-5.1); Sodium 141 mmol/L (136-145); TSH (W/Ref FT4) 2.06 uIU/mL (0.36-3.74); Total Protein 7.8 g/dL (6.4-8.2)
[2024-06-14 11:26] LABS: Troponin I < 4 ng/L (<or=76)
[2024-06-14 12:38] VITALS: BP 124/78; PULSE 86; RESP 16; O2SAT 99
== END 2024-06-14 12:40 | disposition home or self-care (01) ==
PROVIDERS: Emergency Provider Student in an Organized Health Care Education/Training Program; PCP Family Medicine
DX: E86.0 Dehydration (principal); R55 Syncope and collapse; N18.2 Chronic kidney disease, stage 2 (mild); E78.5 Hyperlipidemia, unspecified; E89.2 Postprocedural hypoparathyroidism
CPT/HCPCS: 80053; 93005; 96360; 99284; 83735; 83880; 84443; 84484; 85025; 85379; 93010

== ENCOUNTER 2024-06-22 18:45 | Emergency (ER) | payer OTHER, SELFPAY ==
--- NOTE | 2024-06-22 18:45 | RT.EKG_ITS ---
APPROVED REPORT Exam: Resting ECG Reason for Exam: sharp pain when breathing Patient Location: E HR:102 bpm ECG Measurements Heart Rate 102 AXIS TX 183 P 52 QRSd 95 QRS 38 QT 360 T 37 QTc 469 Conclusion Sinus tachycardia...rate> [address] segment or T wave abnormalities to suggest occlusive ID
[2024-06-22 18:50] VITALS: BP 140/88; PULSE 104; RESP 20; O2SAT 99
--- NOTE | 2024-06-22 19:01 | ED.GENADUL_ITS ---
Discharge Plan Disposition Patient Disposition: Home Condition: Stable Discharge Details Clinical Impression: Exposure to marijuana smoke, Anxiety Primary Care Provider: Brendon Vivar ED Provider: Richy Oakes Home Meds and New Rx's Prescriptions: Continued clonazepam 1 mg tablet 1 mg PO BID Qty: 56 0RF cyclobenzaprine 10 mg tablet 10 mg PO TID PRN (Reason: muscle spasm) Qty: 30 3RF gabapentin 300 mg capsule 300 mg PO BID Qty: 180 3RF methadone 10 mg/5 mL solution 100 mg PO QAM omeprazole 40 mg capsule,delayed release(DR/EC) 40 mg PO DAILY Qty: 90 3RF simethicone 125 mg tablet,chewable 125 mg PO QID PRN (Reason: abdominal distention) Qty: 20 3RF polyethylene glycol 3350 17 gram powder in packet 17 g PO DAILY Qty: 100 1RF calcium carbonate [Tums] 200 mg calcium (500 mg) tablet,chewable 2,000 mg PO BID prochlorperazine maleate 5 mg tablet 5 mg PO TID PRN (Reason: acute nausea) Qty: 30 0RF calcitriol 0.5 mcg capsule 1 mcg PO TID magnesium gluconate 27 mg magnesium (500 mg) tablet 13.5 mg PO TID Qty: 60 3RF promethazine 6.25 mg/5 mL syrup 12.5 mg PO Q6H PRN (Reason: cough) Qty: 120 0RF Discharge Instructions Instructions: Anxiety, Adult ED Additional Instructions: You were seen in the emergency department for your anxiety over exposure to marijuana smoke, your resting comfortably here in the emergency department there is very low likelihood of any pathology resulting from this exposure. Please take it easy for the rest of the. Return for any severe increase in chest pain, or any other emergent concerns. Referrals: Brendon Vivar DO [Primary Care Provider] - Discharge Data Discharge Date/Time-TO BE ENTERED AT DEPARTURE: 06/22/24 20:01 HPI General Date/Time Provider Initiated Documentation: 06/22/24 18:57 . HPI Narrative: 28 year-old male presents to ED today by POV/ambulating with a chief complaint of possible anxiety attack, chest tightness after being exposed briefly to second-hand marijuana smoke with onset one hour prior to arrival. Quality described as mild chest tightness, no radiation to shortness of breath, cough, headache, inebriation. Severity is described as mild. Palliating factors include feels better resting in dark ED room relaxing. Provoking factors include nothing specific. Events leading up to the incident/Associated Symptoms: Patient states he has this reaction to all smoke-exposures. Patient not anticoagulated. Related Data Home Medications ?Medication ?Instructions ?Recorded ?Confirmed calcium carbonate (Tums) 2,000 mg PO BID 02/02/23 06/22/24 methadone 10 mg/5 mL oral solution 100 mg PO QAM 06/12/23 06/22/24 omeprazole 40 mg capsule,delayed 40 mg PO DAILY #90 caps 07/21/23 06/22/24 release prochlorperazine maleate 5 mg 5 mg PO TID PRN acute nausea #30 09/06/23 06/22/24 tablet tabs magnesium gluconate 27 mg 13.5 mg (1/2 x 27 mg magnesium 11/21/23 06/22/24 magnesium (500 mg) tablet (500 mg)) PO TID #60 tabs simethicone 125 mg chewable tablet 125 mg PO QID PRN abdominal 03/12/24 06/22/24 distention #20 tabs polyethylene glycol 3350 17 gram 17 g PO DAILY #100 ea 04/09/24 06/22/24 oral powder packet calcitriol 0.5 mcg capsule 1 mcg PO TID 04/17/24 06/22/24 promethazine 6.25 mg/5 mL oral 12.5 mg (10 mL) PO Q6H PRN cough 05/15/24 06/22/24 syrup #120 mL clonazepam 1 mg tablet 1 mg PO BID #56 tabs 06/01/24 06/22/24 cyclobenzaprine 10 mg tablet 10 mg PO TID PRN muscle spasm #30 06/01/24 06/22/24 tabs gabapentin 300 mg capsule 300 mg PO BID #180 caps 06/01/24 06/22/24 Previous Rx's ?Medication ?Instructions ?Recorded omeprazole 40 mg capsule,delayed 40 mg PO DAILY #90 caps 07/21/23 release prochlorperazine maleate 5 mg 5 mg PO TID PRN acute nausea #30 09/06/23 tablet tabs magnesium gluconate 27 mg 13.5 mg (1/2 x 27 mg magnesium 11/21/23 magnesium (500 mg) tablet (500 mg)) PO TID #60 tabs simethicone 125 mg chewable tablet 125 mg PO QID PRN abdominal 03/12/24 distention #20 tabs polyethylene glycol 3350 17 gram 17 g PO DAILY #100 ea 04/09/24 oral powder packet promethazine 6.25 mg/5 mL oral 12.5 mg (10 mL) PO Q6H PRN cough 05/15/24 syrup #120 mL clonazepam 1 mg tablet 1 mg PO BID #56 tabs 06/01/24 cyclobenzaprine 10 mg tablet 10 mg PO TID PRN muscle spasm #30 06/01/24 tabs gabapentin 300 mg capsule 300 mg PO BID #180 caps 06/01/24 Allergies Allergy/AdvReac Type Severity Reaction Status Date / Time codeine Allergy Intermediate pass out Verified 06/22/24 18:52 Penicillins Allergy Skin Rash Verified 06/22/24 18:52 amoxicillin AdvReac Intermediate Nausea Verified 06/22/24 18:52 dextromethorphan (From AdvReac Intermediate got Verified 06/22/24 18:52 NyQuil) really hot and sweaty doxylamine (From NyQuil) AdvReac Intermediate got Verified 06/22/24 18:52 really hot and sweaty pseudoephedrine (From NyQuil) AdvReac Intermediate got Verified 06/22/24 18:52 really hot and sweaty General Stated Complaint: SOB ADRIANA: 4 Review of Systems All systems reviewed & are unremarkable except as noted in HPI and below Exam Narrative Exam Narrative: GENERAL APPEARANCE: Well-nourished, non-toxic, awake and alert, atraumatic, no acute distress. SKIN: Warm, pink, dry, intact, without rashes/lesions/ulcerations. HEAD: Normocephalic, atraumatic, normal hair distribution for gender/age. EYES: Normal conjunctiva, no exudates on lids/lashes. ENT: Nares patent, no circumoral cyanosis, no facial swelling NECK: Supple, trachea midline, painless cervical ROM. LUNGS/CHEST: Lungs CTA bilaterally, non-labored respirations, normal A/P diameter, symmetrical expansion, no chest wall deformity HEART (CV/PV): Regular rate and rhythm without murmur, no peripheral edema, no JVD. ABDOMEN: Soft, non-distended, no guarding. MSK: Normal ROM, no swelling/deformity to bilateral UEs or LEs, moving all extremities without weakness, no cyanosis, spine midline without tenderness, normal curvature. NEURO: Mental Status AAOx4 - alert to person, place, time, events No facial droop, no forehead involvement. Motor: No focal weakness - strength 5/5 in bilateral UEs and LEs, proximal and distal, symmetric. Sensory: sensation intact to light touch globally. Gait normal: patient ambulated without ataxia into ED room. PSYCH: euthymic, cooperative, pleasant, appropriate speech Course Vital Signs Vital signs: Vital Signs Pulse 104 H 06/22/24 18:50 Respiratory Rate 20 06/22/24 18:50 Blood Pressure 140/88 06/22/24 18:50 Pulse Oximetry 99 06/22/24 18:50 Pulse 104 H 06/22/24 18:50 Respiratory Rate 20 06/22/24 18:50 Blood Pressure 140/88 06/22/24 18:50 Blood Pressure Position Sitting 06/22/24 18:50 Pulse Oximetry 99 06/22/24 18:50 Oxygen Delivery Method Room Air 06/22/24 18:50 Oxygen Flow Rate 0 06/22/24 18:50 Pain Level 3 06/22/24 18:50 Medical Decision Making This dictation utilizes [id number] dictation software and may contain unedited grammatical errors. 28 year-old male presents to ED today by POV/ambulating with a chief complaint of possible anxiety attack, chest tightness after being exposed briefly to second-hand marijuana smoke with onset one hour prior to arrival. Quality described as mild chest tightness, no radiation to shortness of breath, cough, headache, inebriation. Severity is described as mild. Palliating factors include feels better resting in dark ED room relaxing. Provoking factors include nothing specific. Events leading up to the incident/Associated Symptoms: Patient states he has this reaction to all smoke-exposures. Patients' medical history: Anxiety. Family and social history: denies drug use, denies tobacco use. Pertinent exam findings / vital signs include no respiratory distress, calmly resting. Differential / pathologies of concern include anxiety, second-hand smoke exposure, not significant pulmonary pathology. Diagnostic studies of: -none. Interventions of: -none. ED Course/Assessment/Plan: 28-year-old male presents with likely anxiety after being briefly exposed to secondhand marijuana smoke, he denies feeling inebriated on the substance, states that his had this reaction to secondhand smoke exposures many times, has mild chest tightness that is resolving on arrival. He states that he would not like workup as it is improving, I did reevaluate him after 10 or 15 minutes and he was comfortable with discharge home I stress strict return criteria for any worsening chest pain but advised he try to relax and that this was unlikely to cause any serious pathology. Findings not consistent with pulmonary pathology, URI symptoms, PE or other emergent pathology. Disposition of exposure to marijuana smoke, anxiety. Patient verbalized understanding of the plan and return to ED criteria and rosie quiñonez in shared decision making. Medical Records Medical records reviewed: Yes I reviewed the patient's medical records. Quality:SDOH Health Related Social Needs: Health related social needs problems with daily activi ties (Z73.9) [facility] All Active Problems (Updated 06/22/24 @ 19:46 by ANDREW Coleman) Anxiety (Chronic) Exposure to marijuana smoke (Acute) Dehydration (Acute) Acute hypokalemia (Acute) Arm pain, left (Acute) Cervical radiculopathy (Acute) Cough (Acute) Back pain (Acute) Chest pain (Acute) Facial paresthesia (Acute) IBS (irritable bowel syndrome) (Chronic) Pain of right calf (Acute) Obesity (Chronic) Migraine with aura (Acute) Insect bite of leg, right (Acute) Testicle lump (Acute) Hamstring tendinitis of left thigh (Acute) Pes anserine bursitis (Acute) Hypernatremia (Acute) Cervical radiculopathy (Acute) Left-sided Flower's palsy (Acute) Constipation (Acute) Grief reaction (Chronic) Opiate dependence, continuous (Acute) 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 Possible 2' Methadone, Clnzpm (?). Surg eval (+)/No further action. History of electrolyte imbalance (Acute) Neck pain on left side (Acute) with shoulder, upper back pain.. torticollis, radiating into left hip/leg Pulmonary nodule 1 cm or greater in diameter (Chronic) Therapeutic opioid induced constipation (Acute) Sphincter of Oddi dysfunction (Chronic) Abnormal CT scan, kidney (Acute) Intrahepatic bile duct dilation (Acute) Common bile duct dilatation (Chronic) Has been dilated for quite some time, now more-so. Normal LFTs. Known gallstones. Iatrogenic hypocalcemia (Acute) Multiple endocrine neoplasia type I (Chronic) Depression (Chronic) Hypocalcemia (Chronic) Elevated parathyroid hormone (Acute) Family history of coronary arteriosclerosis (Chronic) Father of LA at 50, mother had LA at 42 Severe anxiety with panic (Chronic) Medical History Urinary tract infection CKD (chronic kidney disease) stage 2, GFR 60-89 ml/min GFR 64-65, with Hx FLORESITA and GFR < 45 Primary hyperparathyroidism Complex medical condition Serious electrolyte imbalances, with gynecomastia, possible MEN Dx, CKD and anemia with baseline anxiety and Hx PTSD. Hypocalcemia Anxiety Depression Hyperlipidemia Family history of multiple endocrine neoplasia, type 1 PTSD (post-traumatic stress disorder) Per pt. states no triggers at this time. Surgical History History of laparoscopic cholecystectomy (~11/2023) H/O parathyroidectomy Family History Mother Anxiety Asthma Depression Sister Anxiety Depression Father Cancer lung & stomach Depression Diabetes Hypertension MEN 1 (multiple endocrine neoplasia) Social History Smoking/Tobacco Use Status: Never Smoking risk assessment performed?: Yes Alcohol Intake: current Alcohol Intake frequency: holidays/special occasions only Alcohol type: beer Drug use: Current Sobriety Substance use type: former substance user, crack/cocaine, heroin and painkillers Details: stopped using substances for the passed 4 years Adopted: No Caregiver/Support person: No Foster care: No Household members: none Housing: apartment Number of Children: 0 Communication Needs: None Education Level: high school Do you need help understanding health information?: Never current occupation: [employer] Pets and animals: Yes (Ally) Pets and animals: dog(s) Sexually active: No Do you think of yourself as: straight/heterosexual Current gender identity: male What is your relationship status?: How often do you talk on the phone with friends or family?: twice per week How often do you get together with friends or relatives?: never Do you belong to any clubs or organized social groups?: no Panel score (0-1 are the most socially isolated patients): 0 What type of physical activity do you participate in: walking Duration: 15-30 minutes/day Frequency: 5-6 times per week Maryam/Confucianist: Druze Special maryam needs: No Seatbelt use: always Helmet use: Yes Helmet use: always Drive intox or ride w/intox new car driver: No Do you feel safe at home: Yes Do you feel safe in your relationship?: Yes
[2024-06-22 19:03] VITALS: RESP 24
== END 2024-06-22 20:01 | disposition home or self-care (01) ==
PROVIDERS: Emergency Provider Physician Assistant; PCP Family Medicine
DX: T40.715A Adverse effect of cannabis, initial encounter (principal); R06.02 Shortness of breath; F41.9 Anxiety disorder, unspecified; N18.2 Chronic kidney disease, stage 2 (mild); E78.5 Hyperlipidemia, unspecified; Y92.89 Other specified places as the place of occurrence of the external cause
CPT/HCPCS: 93005; 99283; 93010

== ENCOUNTER 2024-06-24 18:55 | Emergency (ER) | payer OTHER, SELFPAY ==
[2024-06-24 19:00] VITALS: BP 121/76; PULSE 95; RESP 18; TEMP 37; O2SAT 98
--- NOTE | 2024-06-24 19:11 | ED.GENADUL_ITS ---
Discharge Plan Disposition Patient Disposition: Home Condition: Stable Discharge Details Clinical Impression: Right calf pain Primary Care Provider: Brendon Vivar ED Provider: Richy Oakes Home Meds and New Rx's Prescriptions: Continued clonazepam 1 mg tablet 1 mg PO BID Qty: 56 0RF cyclobenzaprine 10 mg tablet 10 mg PO TID PRN (Reason: muscle spasm) Qty: 30 3RF gabapentin 300 mg capsule 300 mg PO BID Qty: 180 3RF methadone 10 mg/5 mL solution 100 mg PO QAM omeprazole 40 mg capsule,delayed release(DR/EC) 40 mg PO DAILY Qty: 90 3RF simethicone 125 mg tablet,chewable 125 mg PO QID PRN (Reason: abdominal distention) Qty: 20 3RF polyethylene glycol 3350 17 gram powder in packet 17 g PO DAILY Qty: 100 1RF calcium carbonate [Tums] 200 mg calcium (500 mg) tablet,chewable 2,000 mg PO BID prochlorperazine maleate 5 mg tablet 5 mg PO TID PRN (Reason: acute nausea) Qty: 30 0RF calcitriol 0.5 mcg capsule 1 mcg PO TID magnesium gluconate 27 mg magnesium (500 mg) tablet 13.5 mg PO TID Qty: 60 3RF promethazine 6.25 mg/5 mL syrup 12.5 mg PO Q6H PRN (Reason: cough) Qty: 120 0RF Discharge Instructions Instructions: Leg Pain (ED) Additional Instructions: You were seen in the emergency department for your right calf pain, there is no evidence of blood clot on your exam, your legs are the same size and there is low likelihood of any current blood clot, you have had no sedentary periods, no recent surgery. Please try to wear compression stockings take Tylenol or Profen as needed, elevate your legs in the evening after you are done work. Please return for any emergent concern. Referrals: Brendon iVvar DO [Primary Care Provider] - Discharge Data Discharge Date/Time-TO BE ENTERED AT DEPARTURE: 06/24/24 19:34 HPI General Date/Time Provider Initiated Documentation: 06/24/24 19:04 . HPI Narrative: 28 year-old male presents to ED today by POV/ambulating with a chief complaint of R leg swelling, soreness with onset over the past couple days- endorses standing all day at work. Quality described as possible muscle soreness in calf, no radiation to skin changes, overt swelling, medial thigh pain. Severity is described as mild to moderate. Palliating factors include nothing specific attempted. Provoking factors include nothing specific. Events leading up to the incident/Associated Symptoms: Patient has history of DVT in past. Patient not anticoagulated. Related Data Home Medications ?Medication ?Instructions ?Recorded ?Confirmed calcium carbonate (Tums) 2,000 mg PO BID 02/02/23 06/24/24 methadone 10 mg/5 mL oral solution 100 mg PO QAM 06/12/23 06/24/24 omeprazole 40 mg capsule,delayed 40 mg PO DAILY #90 caps 07/21/23 06/24/24 release prochlorperazine maleate 5 mg 5 mg PO TID PRN acute nausea #30 09/06/23 06/24/24 tablet tabs magnesium gluconate 27 mg 13.5 mg (1/2 x 27 mg magnesium 11/21/23 06/24/24 magnesium (500 mg) tablet (500 mg)) PO TID #60 tabs simethicone 125 mg chewable tablet 125 mg PO QID PRN abdominal 03/12/24 06/24/24 distention #20 tabs polyethylene glycol 3350 17 gram 17 g PO DAILY #100 ea 04/09/24 06/24/24 oral powder packet calcitriol 0.5 mcg capsule 1 mcg PO TID 04/17/24 06/24/24 promethazine 6.25 mg/5 mL oral 12.5 mg (10 mL) PO Q6H PRN cough 05/15/24 06/24/24 syrup #120 mL clonazepam 1 mg tablet 1 mg PO BID #56 tabs 06/01/24 06/24/24 cyclobenzaprine 10 mg tablet 10 mg PO TID PRN muscle spasm #30 06/01/24 06/24/24 tabs gabapentin 300 mg capsule 300 mg PO BID #180 caps 06/01/24 06/24/24 Previous Rx's ?Medication ?Instructions ?Recorded omeprazole 40 mg capsule,delayed 40 mg PO DAILY #90 caps 07/21/23 release prochlorperazine maleate 5 mg 5 mg PO TID PRN acute nausea #30 09/06/23 tablet tabs magnesium gluconate 27 mg 13.5 mg (1/2 x 27 mg magnesium 11/21/23 magnesium (500 mg) tablet (500 mg)) PO TID #60 tabs simethicone 125 mg chewable tablet 125 mg PO QID PRN abdominal 03/12/24 distention #20 tabs polyethylene glycol 3350 17 gram 17 g PO DAILY #100 ea 04/09/24 oral powder packet promethazine 6.25 mg/5 mL oral 12.5 mg (10 mL) PO Q6H PRN cough 05/15/24 syrup #120 mL clonazepam 1 mg tablet 1 mg PO BID #56 tabs 06/01/24 cyclobenzaprine 10 mg tablet 10 mg PO TID PRN muscle spasm #30 06/01/24 tabs gabapentin 300 mg capsule 300 mg PO BID #180 caps 06/01/24 Allergies Allergy/AdvReac Type Severity Reaction Status Date / Time codeine Allergy Intermediate pass out Verified 06/24/24 19:02 Penicillins Allergy Skin Rash Verified 06/24/24 19:02 amoxicillin AdvReac Intermediate Nausea Verified 06/24/24 19:02 dextromethorphan (From AdvReac Intermediate got Verified 06/24/24 19:02 NyQuil) really hot and sweaty doxylamine (From NyQuil) AdvReac Intermediate got Verified 06/24/24 19:02 really hot and sweaty pseudoephedrine (From NyQuil) AdvReac Intermediate got Verified 06/24/24 19:02 really hot and sweaty General Stated Complaint: [facility]Medical ADRIANA: 4 Review of Systems All systems reviewed & are unremarkable except as noted in HPI and below Exam Narrative Exam Narrative: GENERAL APPEARANCE: Well-nourished, non-toxic, awake and alert, atraumatic, no acute distress. SKIN: Warm, pink, dry, intact, without rashes/lesions/ulcerations. HEAD: Normocephalic, atraumatic, normal hair distribution for gender/age. EYES: Normal conjunctiva, no exudates on lids/lashes. ENT: Nares patent, no circumoral cyanosis, no facial swelling NECK: Supple, trachea midline, painless cervical ROM. LUNGS/CHEST: Non-labored respirations, normal A/P diameter, symmetrical expansion, no chest wall deformity HEART (CV/PV): No peripheral edema, no JVD. ABDOMEN: Soft, non-distended, no guarding. MSK: Normal ROM, no swelling/deformity to bilateral UEs or LEs, moving all extremities without weakness, no cyanosis, spine midline without tenderness, normal curvature, no overt swelling to right lower extremity, Homans negative, no medial thigh tenderness NEURO: Mental Status AAOx4 - alert to person, place, time, events No facial droop, no forehead involvement. Motor: No focal weakness - strength 5/5 in bilateral UEs and LEs, proximal and distal, symmetric. Sensory: sensation intact to light touch globally. Gait normal: patient ambulated without ataxia into ED room. PSYCH: euthymic, cooperative, pleasant, appropriate speech Course Vital Signs Vital signs: Vital Signs Temperature 37.0 C 06/24/24 19:00 Pulse 95 H 06/24/24 19:00 Respiratory Rate 18 06/24/24 19:00 Blood Pressure 121/76 06/24/24 19:00 Pulse Oximetry 98 06/24/24 19:00 Temperature 37.0 C 06/24/24 19:00 Temperature Source Oral 06/24/24 19:00 Pulse 95 H 06/24/24 19:00 Respiratory Rate 18 06/24/24 19:00 Respiratory Effort Normal 06/24/24 19:09 Blood Pressure 121/76 06/24/24 19:00 Blood Pressure Position Sitting 06/24/24 19:00 Pulse Oximetry 98 06/24/24 19:00 Oxygen Delivery Method Room Air 06/24/24 19:00 Oxygen Flow Rate 0 06/24/24 19:00 Pain Level 4 06/24/24 19:00 Medical Decision Making This dictation utilizes [id number] dictation software and may contain unedited grammatical errors. 28 year-old male presents to ED today by POV/ambulating with a chief complaint of R leg swelling, soreness with onset over the past couple days- endorses standing all day at work. Quality described as possible muscle soreness in calf, no radiation to skin changes, overt swelling, medial thigh pain. Severity is described as mild to moderate. Palliating factors include nothing specific attempted. Provoking factors include nothing specific. Events leading up to the incident/Associated Symptoms: Patient has history of DVT in past. Patients' medical history: Complex. Family and social history: Noncontributory. Pertinent exam findings / vital signs include no overt swelling of right lower extremity, the left lower extremity is 1 cm larger in comparison, no skin changes, Homans negative, no medial thigh tenderness. Differential / pathologies of concern include muscle strain, anxiety. Diagnostic studies of: -none. Interventions of: -none. ED Course/Assessment/Plan: 28-year-old male well-known to the department presents with right leg soreness, states he has been on his feet all day at work. His exam is benign, he states his right leg is swollen but is smaller than his left leg, there is no skin changes and Homans negative, I suspect he has an element of muscle strain, patient was comfortable with this reassurance and will return for any skin changes or worsening despite treatment with OTC analgesics. Findings not consistent with DVT, skin changes, fracture or neurovascular compromise. Disposition of Right Calf Pain. Patient verbalized understanding of the plan and return to ED criteria and engaged in shared decision making. Medical Records Medical records reviewed: Yes I reviewed the patient's medical records. Quality:SDOH Health Related Social Needs: Health related social needs problems with daily activi ties (Z73.9) [facility] All Active Problems (Updated 06/25/24 @ 00:04 by HAMMAD WILEY) Right calf pain (Acute) Anxiety (Chronic) Exposure to marijuana smoke (Acute) Dehydration (Acute) Acute hypokalemia (Acute) Arm pain, left (Acute) Cervical radiculopathy (Acute) Cough (Acute) Back pain (Acute) IBS (irritable bowel syndrome) (Chronic) Pain of right calf (Acute) Obesity (Chronic) Migraine with aura (Acute) Insect bite of leg, right (Acute) Testicle lump (Acute) Hamstring tendinitis of left thigh (Acute) Pes anserine bursitis (Acute) Hypernatremia (Acute) Cervical radiculopathy (Acute) Left-sided Flower's palsy (Acute) Constipation (Acute) Grief reaction (Chronic) Opiate dependence, continuous (Acute) 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 Possible 2' Methadone, Clnzpm (?). Surg eval (+)/No further action. History of electrolyte imbalance (Acute) Neck pain on left side (Acute) with shoulder, upper back pain.. torticollis, radiating into left hip/leg Pulmonary nodule 1 cm or greater in diameter (Chronic) Therapeutic opioid induced constipation (Acute) Sphincter of Oddi dysfunction (Chronic) Abnormal CT scan, kidney (Acute) Intrahepatic bile duct dilation (Acute) Common bile duct dilatation (Chronic) Has been dilated for quite some time, now more-so. Normal LFTs. Known gallstones. Iatrogenic hypocalcemia (Acute) Multiple endocrine neoplasia type I (Chronic) Depression (Chronic) Hypocalcemia (Chronic) Elevated parathyroid hormone (Acute) Family history of coronary arteriosclerosis (Chronic) Father of MN at 50, mother had MN at 42 Severe anxiety with panic (Chronic) Medical History Urinary tract infection CKD (chronic kidney disease) stage 2, GFR 60-89 ml/min GFR 64-65, with Hx FLORESITA and GFR < 45 Primary hyperparathyroidism Complex medical condition Serious electrolyte imbalances, with gynecomastia, possible MEN Dx, CKD and anemia with baseline anxiety and Hx PTSD. Hypocalcemia Anxiety Depression Hyperlipidemia Family history of multiple endocrine neoplasia, type 1 PTSD (post-traumatic stress disorder) Per pt. states no triggers at this time. Surgical History History of laparoscopic cholecystectomy (~11/2023) H/O parathyroidectomy Family History Mother Anxiety Asthma Depression Sister Anxiety Depression Father Cancer lung & stomach Depression Diabetes Hypertension MEN 1 (multiple endocrine neoplasia) Social History Smoking/Tobacco Use Status: Never Smoking risk assessment performed?: Yes Alcohol Intake: current Alcohol Intake frequency: holidays/special occasions only Alcohol type: beer Drug use: Current Sobriety Substance use type: former substance user, crack/cocaine, heroin and painkillers Details: stopped using substances for the passed 4 years Adopted: No Caregiver/Support person: No Foster care: No Household members: none Housing: apartment Number of Children: 0 Communication Needs: None Education Level: high school Do you need help understanding health information?: Never current occupation: [employer] Pets and animals: Yes (Ally) Pets and animals: dog(s) Sexually active: No Do you think of yourself as: straight/heterosexual Current gender identity: male What is your relationship status?: How often do you talk on the phone with friends or family?: twice per week How often do you get together with friends or relatives?: never Do you belong to any clubs or organized social groups?: no Panel score (0-1 are the most socially isolated patients): 0 What type of physical activity do you participate in: walking Duration: 15-30 minutes/day Frequency: 5-6 times per week Maryam/Restorationism: Religious Special maryam needs: No Seatbelt use: always Helmet use: Yes Helmet use: always Drive intox or ride w/intox short haul driver: No Do you feel safe at home: Yes Do you feel safe in your relationship?: Yes
== END 2024-06-24 19:34 | disposition home or self-care (01) ==
PROVIDERS: Emergency Provider Physician Assistant; PCP Family Medicine
DX: M79.661 Pain in right lower leg (principal); R22.41 Localized swelling, mass and lump, right lower limb
CPT/HCPCS: 99281; 99282

== ENCOUNTER 2024-07-02 10:08 | Emergency (ER) | payer MEDICAID, SELFPAY ==
--- NOTE | 2024-07-02 10:00 | RT.EKG_ITS ---
APPROVED REPORT Exam: Resting ECG Reason for Exam: Tachycardia Patient Location: E HR:101 bpm ECG Measurements Heart Rate 101 AXIS DC 169 P 43 QRSd 97 QRS 19 QT 357 T 24 QTc 464 Conclusion Sinus tachycardia...rate> 99
[2024-07-02 10:19] VITALS: BP 128/76; PULSE 104; RESP 18; TEMP 36.7; O2SAT 95
--- NOTE | 2024-07-02 10:56 | ED.GENADUL_ITS ---
Discharge Plan Disposition Patient Disposition: Home Condition: Stable Discharge Details Clinical Impression: Patient request for diagnostic testing Primary Care Provider: Brendon Vivar ED Provider: Richy Oakes Home Meds and New Rx's Prescriptions: Continued cyclobenzaprine 10 mg tablet 10 mg PO TID PRN (Reason: muscle spasm) Qty: 30 3RF gabapentin 300 mg capsule 300 mg PO BID Qty: 180 3RF methadone 10 mg/5 mL solution 100 mg PO QAM omeprazole 40 mg capsule,delayed release(DR/EC) 40 mg PO DAILY Qty: 90 3RF simethicone 125 mg tablet,chewable 125 mg PO QID PRN (Reason: abdominal distention) Qty: 20 3RF polyethylene glycol 3350 17 gram powder in packet 17 g PO DAILY Qty: 100 1RF calcitriol 0.5 mcg capsule 1 mcg PO .COMPLEX Qty: 270 3RF Rx Instructions: 1 mcg orally t2 tabs qam and 1 tab QHS; clonazepam 1 mg tablet 1 mg PO BID Qty: 56 0RF calcium carbonate [Tums] 200 mg calcium (500 mg) tablet,chewable 2,000 mg PO BID prochlorperazine maleate 5 mg tablet 5 mg PO TID PRN (Reason: acute nausea) Qty: 30 0RF magnesium gluconate 27 mg magnesium (500 mg) tablet 13.5 mg PO TID Qty: 60 3RF promethazine 6.25 mg/5 mL syrup 12.5 mg PO Q6H PRN (Reason: cough) Qty: 120 0RF Discharge Instructions Instructions: Potassium Test Additional Instructions: You were seen in the emergency department for your request for your electrolyte levels to be checked, all your electrolytes are within normal limits, your kidney function is at its baseline, please continue your outpatient medications as desired and return for any emergent concerns. Referrals: Brendon Vivar DO [Primary Care Provider] - Discharge Data Discharge Date/Time-TO BE ENTERED AT DEPARTURE: 07/02/24 12:12 HPI General Date/Time Provider Initiated Documentation: 07/02/24 10:56 . HPI Narrative: 28 year-old male presents to ED today by POV/ambulating with a chief complaint of believes his potassium is low which has been an issue for him in the past, states that his fingers and face are tingling with onset over the past day or so. Quality described as just the tingling, denies any other complaints to provider and interview, no radiation to shortness of breath, fever, fatigue beyond baseline, severe abdominal pain, changes to bowel or urinary habits, chest pain. Severity is described as mild. Palliating factors include nothing attempted. Provoking factors include nothing specific, denies diarrhea or vomiting. Patient not anticoagulated. Related Data Home Medications ?Medication ?Instructions ?Recorded ?Confirmed calcium carbonate (Tums) 2,000 mg PO BID 02/02/23 07/02/24 methadone 10 mg/5 mL oral solution 100 mg PO QAM 06/12/23 07/02/24 omeprazole 40 mg capsule,delayed 40 mg PO DAILY #90 caps 07/21/23 07/02/24 release prochlorperazine maleate 5 mg 5 mg PO TID PRN acute nausea #30 09/06/23 07/02/24 tablet tabs magnesium gluconate 27 mg 13.5 mg (1/2 x 27 mg magnesium 11/21/23 07/02/24 magnesium (500 mg) tablet (500 mg)) PO TID #60 tabs simethicone 125 mg chewable tablet 125 mg PO QID PRN abdominal 03/12/24 07/02/24 distention #20 tabs polyethylene glycol 3350 17 gram 17 g PO DAILY #100 ea 04/09/24 06/30/24 oral powder packet promethazine 6.25 mg/5 mL oral 12.5 mg (10 mL) PO Q6H PRN cough 05/15/24 07/02/24 syrup #120 mL cyclobenzaprine 10 mg tablet 10 mg PO TID PRN muscle spasm #30 06/01/24 07/02/24 tabs gabapentin 300 mg capsule 300 mg PO BID #180 caps 06/01/24 07/02/24 calcitriol 0.5 mcg capsule 1 mcg (2 x 0.5 mcg) PO .COMPLEX 06/29/24 07/02/24 #270 caps clonazepam 1 mg tablet 1 mg PO BID #56 tabs 06/29/24 07/02/24 Previous Rx's ?Medication ?Instructions ?Recorded omeprazole 40 mg capsule,delayed 40 mg PO DAILY #90 caps 07/21/23 release prochlorperazine maleate 5 mg 5 mg PO TID PRN acute nausea #30 09/06/23 tablet tabs magnesium gluconate 27 mg 13.5 mg (1/2 x 27 mg magnesium 11/21/23 magnesium (500 mg) tablet (500 mg)) PO TID #60 tabs simethicone 125 mg chewable tablet 125 mg PO QID PRN abdominal 03/12/24 distention #20 tabs polyethylene glycol 3350 17 gram 17 g PO DAILY #100 ea 04/09/24 oral powder packet promethazine 6.25 mg/5 mL oral 12.5 mg (10 mL) PO Q6H PRN cough 05/15/24 syrup #120 mL cyclobenzaprine 10 mg tablet 10 mg PO TID PRN muscle spasm #30 06/01/24 tabs gabapentin 300 mg capsule 300 mg PO BID #180 caps 06/01/24 calcitriol 0.5 mcg capsule 1 mcg (2 x 0.5 mcg) PO .COMPLEX 06/29/24 #270 caps clonazepam 1 mg tablet 1 mg PO BID #56 tabs 06/29/24 Allergies Allergy/AdvReac Type Severity Reaction Status Date / Time codeine Allergy Intermediate pass out Verified 07/02/24 10:20 Penicillins Allergy Skin Rash Verified 07/02/24 10:20 marijuana (cannabis) AdvReac Severe Paranoia Verified 07/02/24 10:20 amoxicillin AdvReac Intermediate Nausea Verified 07/02/24 10:20 dextromethorphan (From AdvReac Intermediate got Verified 07/02/24 10:20 NyQuil) really hot and sweaty doxylamine (From NyQuil) AdvReac Intermediate got Verified 07/02/24 10:20 really hot and sweaty pseudoephedrine (From NyQuil) AdvReac Intermediate got Verified 07/02/24 10:20 really hot and sweaty General Stated Complaint: GenMedical ADRIANA: 3 Review of Systems All systems reviewed & are unremarkable except as noted in HPI and below Exam Narrative Exam Narrative: GENERAL APPEARANCE: Well-nourished, non-toxic, awake and alert, atraumatic, no acute distress. SKIN: Warm, pink, dry, intact, without rashes/lesions/ulcerations. HEAD: Normocephalic, atraumatic, normal hair distribution for gender/age. EYES: Normal conjunctiva, no exudates on lids/lashes. ENT: Nares patent, no circumoral cyanosis, no facial swelling NECK: Supple, trachea midline, painless cervical ROM. LUNGS/CHEST: Lungs CTA bilaterally, non-labored respirations, normal A/P diameter, symmetrical expansion, no chest wall deformity HEART (CV/PV): Regular rate and rhythm without murmur, no peripheral edema, no JVD. ABDOMEN: Soft, non-distended, no guarding. MSK: Normal ROM, no swelling/deformity to bilateral UEs or LEs, moving all extremities without weakness, no cyanosis, spine midline without tenderness, normal curvature. NEURO: Mental Status AAOx4 - alert to person, place, time, events No facial droop, no forehead involvement. Motor: No focal weakness - strength 5/5 in bilateral UEs and LEs, proximal and distal, symmetric. Sensory: sensation intact to light touch globally. Gait normal: patient ambulated without ataxia into ED room. PSYCH: euthymic, cooperative, pleasant, appropriate speech Course Vital Signs Vital signs: Vital Signs Temperature 36.7 C 07/02/24 10:19 Pulse 104 H 07/02/24 10:19 Respiratory Rate 18 07/02/24 10:19 Blood Pressure 128/76 07/02/24 10:19 Pulse Oximetry 95 07/02/24 10:19 Temperature 36.7 C 07/02/24 10:19 Temperature Source Oral 07/02/24 10:19 Pulse 104 H 07/02/24 10:19 Respiratory Rate 18 07/02/24 10:19 Blood Pressure 128/76 07/02/24 10:19 Blood Pressure Position Sitting 07/02/24 10:19 Pulse Oximetry 95 07/02/24 10:19 Oxygen Delivery Method Room Air 07/02/24 10:19 Oxygen Flow Rate 0 07/02/24 10:19 Pain Level 5 07/02/24 10:19 Medical Decision Making This dictation utilizes [id number] dictation software and may contain unedited grammatical errors. 28 year-old male presents to ED today by POV/ambulating with a chief complaint of believes his potassium is low which has been an issue for him in the past, states that his fingers and face are tingling with onset over the past day or so. Quality described as just the tingling, denies any other complaints to provider and interview, no radiation to shortness of breath, fever, fatigue beyond baseline, severe abdominal pain, changes to bowel or urinary habits, chest pain. Severity is described as mild. Palliating factors include nothing attempted. Provoking factors include nothing specific, denies diarrhea or vomiti ng. Patients' medical history: Complex, history of electrolyte abnormalities, thyroid issues. Family and social history: Noncontributory. Pertinent exam findings / vital signs include benign abdomen, benign cardiopulmonary exam, neuro intact, nontoxic vitals. Differential / pathologies of concern include electrolyte abnormality, request for diagnostic testing. Diagnostic studies of: -BMP, magnesium, no actionable abnormality. -EKG without clinical signs of hypokalemia without flattened T waves or U waves Interventions of: -None. ED Course/Assessment/Plan: 28-year-old male well-known to the department presents with tingling in his fingers and face similar to prior episodes of hypokalemia. Laboratory workup shows normal levels, patient was reassured by this and will return home, he may return for any emergent concerns Findings not consistent with hypokalemia, febrile illness, respiratory distress, chest pain. Disposition of patient request for diagnostic testing. Patient verbalized understanding of the plan and return to ED criteria and engaged in shared decision making. Medical Records Medical records reviewed: Yes I reviewed the patient's medical records. Lab Data Lab results reviewed: Yes I reviewed the patient's lab results. Labs: Laboratory Tests Range/Units 07/02/24 11:32 Sodium (136-145) mmol/L 142 Potassium (3.5-5.1) mmol/L 3.8 Chloride (98-107) mmol/L 103 Carbon Dioxide (21.0-32.0) mmol/L 35.1 H Anion Gap (3-11) mmol/L 3.9 BUN (7-18) mg/dL 25 H Creatinine (0.70-1.30) mg/dL 1.7 H Est GFR (CKD-EPI 2020) (mL/min/1.73m2) 54.93 Glucose (74-106) mg/dL 89 Calcium (8.5-10.1) mg/dL 9.5 Magnesium (1.8-2.4) mg/dL 2.0 Total Bilirubin (0.2-1.0) mg/dL 0.23 AST (15-37) U/L 67 H ALT (16-63) U/L 61 Alkaline Phosphatase (46-116) U/L 167 H Total Protein (6.4-8.2) g/dL 7.5 Albumin (3.4-5.0) g/dL 3.1 L Quality:SDOH Health Related Social Needs: Health related social needs problems with daily activi ties (Z73.9) PFSH All Active Problems (Updated 07/02/24 @ 12:00 by ANDREW Coleman) Patient request for diagnostic testing (Acute) Right calf pain (Acute) Anxiety (Chronic) Exposure to marijuana smoke (Acute) Dehydration (Acute) Acute hypokalemia (Acute) Arm pain, left (Acute) Cervical radiculopathy (Acute) Cough (Acute) IBS (irritable bowel syndrome) (Chronic) Pain of right calf (Acute) Obesity (Chronic) Migraine with aura (Acute) Insect bite of leg, right (Acute) Testicle lump (Acute) Hamstring tendinitis of left thigh (Acute) Pes anserine bursitis (Acute) Hypernatremia (Acute) Cervical radiculopathy (Acute) Left-sided Flower's palsy (Acute) Constipation (Acute) Grief reaction (Chronic) Opiate dependence, continuous (Acute) 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 Possible 2' Methadone, Clnzpm (?). Surg eval (+)/No further action. History of electrolyte imbalance (Acute) Neck pain on left side (Acute) with shoulder, upper back pain.. torticollis, radiating into left hip/leg Pulmonary nodule 1 cm or greater in diameter (Chronic) Therapeutic opioid induced constipation (Acute) Sphincter of Oddi dysfunction (Chronic) Abnormal CT scan, kidney (Acute) Intrahepatic bile duct dilation (Acute) Common bile duct dilatation (Chronic) Has been dilated for quite some time, now more-so. Normal LFTs. Known gallstones. Iatrogenic hypocalcemia (Acute) Multiple endocrine neoplasia type I (Chronic) Depression (Chronic) Hypocalcemia (Chronic) Elevated parathyroid hormone (Acute) Family history of coronary arteriosclerosis (Chronic) Father of CA at 50, mother had CA at 42 Severe anxiety with panic (Chronic) Medical History Urinary tract infection CKD (chronic kidney disease) stage 2, GFR 60-89 ml/min GFR 64-65, with Hx FLORESITA and GFR < 45 Primary hyperparathyroidism Complex medical condition Serious electrolyte imbalances, with gynecomastia, possible MEN Dx, CKD and anemia with baseline anxiety and Hx PTSD. Hypocalcemia Anxiety Depression Hyperlipidemia Family history of multiple endocrine neoplasia, type 1 PTSD (post-traumatic stress disorder) Per pt. states no triggers at this time. Surgical History History of laparoscopic cholecystectomy (~11/2023) H/O parathyroidectomy Family History Mother Anxiety Asthma Depression Sister Anxiety Depression Father Cancer lung & stomach Depression Diabetes Hypertension MEN 1 (multiple endocrine neoplasia) Social History Smoking/Tobacco Use Status: Never Smoking risk assessment performed?: Yes Alcohol Intake: current Alcohol Intake frequency: holidays/special occasions only Alcohol type: beer Drug use: Current Sobriety Substance use type: former substance user, crack/cocaine, heroin and painkillers Details: stopped using substances for the passed 4 years Adopted: No Caregiver/Support person: No Foster care: No Household members: none Housing: apartment Number of Children: 0 Communication Needs: None Education Level: high school Do you need help understanding health information?: Never current occupation: [employer] Pets and animals: Yes (Ally) Pets and animals: dog(s) Sexually active: No Do you think of yourself as: straight/heterosexual Current gender identity: male What is your relationship status?: How often do you talk on the phone with friends or family?: twice per week How often do you get together with friends or relatives?: never Do you belong to any clubs or organized social groups?: no Panel score (0-1 are the most socially isolated patients): 0 What type of physical activity do you participate in: walking Duration: 15-30 minutes/day Frequency: 5-6 times per week Maryam/Yarsanism: Confucianism Special maryam needs: No Seatbelt use: always Helmet use: Yes Helmet use: always Drive intox or ride w/intox car pick up driver: No Do you feel safe at home: Yes Do you feel safe in your relationship?: Yes
[2024-07-02 11:53] LABS: ALT 61 U/L (16-63); AST 67 U/L (15-37); Albumin 3.1 g/dL (3.4-5.0); Alkaline Phosphatase 167 U/L (46-116); Anion Gap 3.9 mmol/L (3-11); BUN 25 mg/dL (7-18); Bilirubin, Total 0.23 mg/dL (0.2-1.0); CO2 35.1 mmol/L (21.0-32.0); CREATININE 1.7 mg/dL (0.70-1.30); Calcium 9.5 mg/dL (8.5-10.1); Chloride 103 mmol/L (98-107); Estimated GFR 54.93 (mL/min/1.73m2); Glucose 89 mg/dL (74-106); Potassium 3.8 mmol/L (3.5-5.1); Sodium 142 mmol/L (136-145); Total Protein 7.5 g/dL (6.4-8.2)
== END 2024-07-02 12:12 | disposition home or self-care (01) ==
PROVIDERS: Emergency Provider Physician Assistant; PCP Family Medicine
DX: R00.2 Palpitations (principal)
CPT/HCPCS: 80053; 93005; 99284; 83735; 93010; 99283

== ENCOUNTER 2024-07-14 19:01 | Emergency (ER) | payer MEDICAID, SELFPAY ==
[2024-07-14 19:02] VITALS: BP 125/81; PULSE 94; RESP 20; TEMP 36.2; O2SAT 98
--- NOTE | 2024-07-14 20:07 | ED.GENADUL_ITS ---
Discharge Plan Disposition Patient Disposition: Home Condition: Stable Discharge Details Clinical Impression: Acute left lumbar radiculopathy Primary Care Provider: Brendon Vivar ED Provider: Luh Tsai Home Meds and New Rx's Prescriptions: New prednisone 20 mg tablet 40 mg PO ONCE Qty: 10 0RF Continued cyclobenzaprine 10 mg tablet 10 mg PO TID PRN (Reason: muscle spasm) Qty: 30 3RF gabapentin 300 mg capsule 300 mg PO BID Qty: 180 3RF methadone 10 mg/5 mL solution 100 mg PO QAM omeprazole 40 mg capsule,delayed release(DR/EC) 40 mg PO DAILY Qty: 90 3RF simethicone 125 mg tablet,chewable 125 mg PO QID PRN (Reason: abdominal distention) Qty: 20 3RF polyethylene glycol 3350 17 gram powder in packet 17 g PO DAILY Qty: 100 1RF calcitriol 0.5 mcg capsule 1 mcg PO .COMPLEX Qty: 270 3RF Rx Instructions: 1 mcg orally t2 tabs qam and 1 tab QHS; clonazepam 1 mg tablet 1 mg PO BID Qty: 56 0RF calcium carbonate [Tums] 200 mg calcium (500 mg) tablet,chewable 2,000 mg PO BID prochlorperazine maleate 5 mg tablet 5 mg PO TID PRN (Reason: acute nausea) Qty: 30 0RF magnesium gluconate 27 mg magnesium (500 mg) tablet 13.5 mg PO TID Qty: 60 3RF promethazine 6.25 mg/5 mL syrup 12.5 mg PO Q6H PRN (Reason: cough) Qty: 120 0RF No Action benzonatate 200 mg capsule 200 mg PO TID PRN Patient Comments: TAKE ONE CAPSULE BY MOUTH EVERY 8 HOURS NEEDED FOR COUGH Discharge Instructions Instructions: Radiculopathy (DC) Additional Instructions: take prednisone as prescribed take tylenol as needed for pain follow-up with pcp in 1-2 days return earlier with new or worsening complaints including changes in bowel bladder, or with any new or progressing symptoms Referrals: Brendon Vivar DO [Primary Care Provider] - Discharge Data Discharge Date/Time-TO BE ENTERED AT DEPARTURE: 07/14/24 20:33 HPI General Date/Time Provider Initiated Documentation: 07/14/24 19:37 . HPI Narrative: This 28-year-old male known to this facility presents with back pain radiating down left leg, 7 out of 10 pain. Denies known trauma. Denies any urinary symptoms. Denies any sensation changes to lower extremity. Denies changes in bowel or bladder. Denies fever or chills or recent illicit drug use. States the pain is exacerbated with sitting and being sedentary. Related Data Home Medications ?Medication ?Instructions ?Recorded ?Confirmed calcium carbonate (Tums) 2,000 mg PO BID 02/02/23 07/16/24 methadone 10 mg/5 mL oral solution 100 mg PO QAM 06/12/23 07/16/24 omeprazole 40 mg capsule,delayed 40 mg PO DAILY #90 caps 07/21/23 07/16/24 release prochlorperazine maleate 5 mg 5 mg PO TID PRN acute nausea #30 09/06/23 07/16/24 tablet tabs magnesium gluconate 27 mg 13.5 mg (1/2 x 27 mg magnesium 11/21/23 07/16/24 magnesium (500 mg) tablet (500 mg)) PO TID #60 tabs simethicone 125 mg chewable tablet 125 mg PO QID PRN abdominal 03/12/24 07/16/24 distention #20 tabs polyethylene glycol 3350 17 gram 17 g PO DAILY #100 ea 04/09/24 07/16/24 oral powder packet promethazine 6.25 mg/5 mL oral 12.5 mg (10 mL) PO Q6H PRN cough 05/15/24 07/16/24 syrup #120 mL cyclobenzaprine 10 mg tablet 10 mg PO TID PRN muscle spasm #30 06/01/24 07/16/24 tabs gabapentin 300 mg capsule 300 mg PO BID #180 caps 06/01/24 07/16/24 calcitriol 0.5 mcg capsule 1 mcg (2 x 0.5 mcg) PO .COMPLEX 06/29/24 07/16/24 #270 caps clonazepam 1 mg tablet 1 mg PO BID #56 tabs 06/29/24 07/16/24 prednisone 20 mg tablet 40 mg (2 x 20 mg) PO ONCE #10 tabs 07/14/24 07/16/24 benzonatate 200 mg capsule 200 mg PO TID PRN 07/16/24 07/16/24 Previous Rx's ?Medication ?Instructions ?Recorded omeprazole 40 mg capsule,delayed 40 mg PO DAILY #90 caps 07/21/23 release prochlorperazine maleate 5 mg 5 mg PO TID PRN acute nausea #30 09/06/23 tablet tabs magnesium gluconate 27 mg 13.5 mg (1/2 x 27 mg magnesium 11/21/23 magnesium (500 mg) tablet (500 mg)) PO TID #60 tabs simethicone 125 mg chewable tablet 125 mg PO QID PRN abdominal 03/12/24 distention #20 tabs polyethylene glycol 3350 17 gram 17 g PO DAILY #100 ea 04/09/24 oral powder packet promethazine 6.25 mg/5 mL oral 12.5 mg (10 mL) PO Q6H PRN cough 05/15/24 syrup #120 mL cyclobenzaprine 10 mg tablet 10 mg PO TID PRN muscle spasm #30 06/01/24 tabs gabapentin 300 mg capsule 300 mg PO BID #180 caps 06/01/24 calcitriol 0.5 mcg capsule 1 mcg (2 x 0.5 mcg) PO .COMPLEX 06/29/24 #270 caps clonazepam 1 mg tablet 1 mg PO BID #56 tabs 06/29/24 prednisone 20 mg tablet 40 mg (2 x 20 mg) PO ONCE #10 tabs 07/14/24 Allergies Allergy/AdvReac Type Severity Reaction Status Date / Time codeine Allergy Intermediate pass out Verified 07/14/24 19:05 Penicillins Allergy Skin Rash Verified 07/14/24 19:05 marijuana (cannabis) AdvReac Severe Paranoia Verified 07/14/24 19:05 amoxicillin AdvReac Intermediate Nausea Verified 07/14/24 19:05 dextromethorphan (From AdvReac Intermediate got Verified 07/14/24 19:05 NyQuil) really hot and sweaty doxylamine (From NyQuil) AdvReac Intermediate got Verified 07/14/24 19:05 really hot and sweaty pseudoephedrine (From NyQuil) AdvReac Intermediate got Verified 07/14/24 19:05 really hot and sweaty General Stated Complaint: Orthopedic ADRIANA: 4 Exam Narrative Exam Narrative: 28-year-old male alert, oriented, no acute distress, lumbar para spine tenderness, strength and sensation intact distally, DTRs intact bilateral lower extremities, negative Babinski, no abdominal tenderness, no CVA tenderness Course Vital Signs Vital signs: Vital Signs Temperature 36.2 C L 07/14/24 19:02 Pulse 94 H 07/14/24 19:02 Respiratory Rate 20 07/14/24 19:02 Blood Pressure 125/81 07/14/24 19:02 Pulse Oximetry 98 07/14/24 19:02 Temperature 36.2 C L 07/14/24 19:02 Temperature Source Temporal Artery Scan 07/14/24 19:02 Pulse 94 H 07/14/24 19:02 Respiratory Rate 20 07/14/24 19:02 Blood Pressure 125/81 07/14/24 19:02 Blood Pressure Position Sitting 07/14/24 19:02 Pulse Oximetry 98 07/14/24 19:02 Oxygen Delivery Method Room Air 07/14/24 19:02 Oxygen Flow Rate 0 07/14/24 19:02 Pain Level 7 07/14/24 19:02 Medical Decision Making 28-year-old male alert and oriented, no acute distress, with back pain for the past several weeks intermittently, gradually worsening. Patient states he has an element of constant pain but has been gradually becoming worse. States it is improved actually when he ambulates but when he is sedentary or seated for per iod of time the pain worsens. Denies changes in bowel or bladder. Patient's exam is relatively benign she continued to have symptoms he will need reassessment and possible imaging. I see no clear indication for cauda equina syndrome at time of my assessment. I have low suspicion clinically for discitis or osteomyelitis is patient has no recent illicit substance abuse and he has had this pain intermittently for a while. He is given the threshold to return should he have new or worsening complaints and given a steroid for the next couple days to decrease the inflammation. Return precautions reviewed patient expressed understanding Quality:SDOH Health Related Social Needs: Health related social needs problems with daily activi ties (Z73.9) [facility] All Active Problems (Updated 07/16/24 @ 12:54 by Saranya Avila) Left-sided chest pain (Acute) Acute left lumbar radiculopathy (Acute) Patient request for diagnostic testing (Acute) Right calf pain (Acute) Anxiety (Chronic) Exposure to marijuana smoke (Acute) IBS (irritable bowel syndrome) (Chronic) Pain of right calf (Acute) Obesity (Chronic) Migraine with aura (Acute) Insect bite of leg, right (Acute) Testicle lump (Acute) Hamstring tendinitis of left thigh (Acute) Pes anserine bursitis (Acute) Hypernatremia (Acute) Cervical radiculopathy (Acute) Left-sided Flower's palsy (Acute) Constipation (Acute) Grief reaction (Chronic) Opiate dependence, continuous (Acute) 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 Possible 2' Methadone, Clnzpm (?). Surg eval (+)/No further action. History of electrolyte imbalance (Acute) Neck pain on left side (Acute) with shoulder, upper back pain.. torticollis, radiating into left hip/leg Pulmonary nodule 1 cm or greater in diameter (Chronic) Therapeutic opioid induced constipation (Acute) Sphincter of Oddi dysfunction (Chronic) Abnormal CT scan, kidney (Acute) Intrahepatic bile duct dilation (Acute) Common bile duct dilatation (Chronic) Has been dilated for quite some time, now more-so. Normal LFTs. Known gallstones. Iatrogenic hypocalcemia (Acute) Multiple endocrine neoplasia type I (Chronic) Depression (Chronic) Hypocalcemia (Chronic) Elevated parathyroid hormone (Acute) Family history of coronary arteriosclerosis (Chronic) Father of MS at 50, mother had MS at 42 Severe anxiety with panic (Chronic) Medical History Urinary tract infection CKD (chronic kidney disease) stage 2, GFR 60-89 ml/min GFR 64-65, with Hx FLORESITA and GFR < 45 Primary hyperparathyroidism Complex medical condition Serious electrolyte imbalances, with gynecomastia, possible MEN Dx, CKD and anemia with baseline anxiety and Hx PTSD. Hypocalcemia Anxiety Depression Hyperlipidemia Family history of multiple endocrine neoplasia, type 1 PTSD (post-traumatic stress disorder) Per pt. states no triggers at this time. Surgical History History of laparoscopic cholecystectomy (~11/2023) H/O parathyroidectomy Family History Mother Anxiety Asthma Depression Sister Anxiety Depression Father Cancer lung & stomach Depression Diabetes Hypertension MEN 1 (multiple endocrine neoplasia) Social History Smoking/Tobacco Use Status: Never Smoking risk assessment performed?: Yes Alcohol Intake: current Alcohol Intake frequency: holidays/special occasions only Alcohol type: beer Drug use: Current Sobriety Substance use type: former substance user, crack/cocaine, heroin and painkillers Details: stopped using substances for the passed 4 years Adopted: No Caregiver/Support person: No Foster care: No Household members: none Housing: apartment Number of Children: 0 Communication Needs: None Education Level: high school Do you need help understanding health information?: Never current occupation: [employer] Pets and animals: Yes (Ally) Pets and animals: dog(s) Sexually active: No Do you think of yourself as: straight/heterosexual Current gender identity: male What is your relationship status?: How often do you talk on the phone with friends or family?: twice per week How often do you get together with friends or relatives?: never Do you belong to any clubs or organized social groups?: no Panel score (0-1 are the most socially isolated patients): 0 What type of physical activity do you participate in: walking Duration: 15-30 minutes/day Frequency: 5-6 times per week Maryam/Episcopalian: Anabaptist Special maryam needs: No Seatbelt use: always Helmet use: Yes Helmet use: always 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
[2024-07-14] MEDS: predniSONE 20 MG TAB 40 MG PO (20:35)
--- NOTE | 2024-07-15 13:16 | NUR.NOTE ---
Nursing Note: Received call from patient that there was no order for outpatient ultrasound that he was expecting. Discharge paperwork reviewed and no mention of ultrasound was in the discharge paperwork. Provider who saw patient will be here in a few hours and I will have the provider call him and clarify.
== END 2024-07-14 20:33 | disposition home or self-care (01) ==
PROVIDERS: Emergency Provider Physician Assistant; PCP Family Medicine
DX: M54.16 Radiculopathy, lumbar region (principal)
CPT/HCPCS: 99283; J7512

== ENCOUNTER 2024-07-16 10:22 | Emergency (ER) | payer OTHER, SELFPAY ==
[2024-07-16] VITALS (8 sets, daily range): BP systolic 120–149; BP diastolic 68–103; PULSE 70–91; RESP 16–18; TEMP 36.4; O2SAT 97–98
--- NOTE | 2024-07-16 10:15 | RT.EKG_ITS ---
APPROVED REPORT Exam: Resting ECG Reason for Exam: SOB/CP Patient Location: E HR:87 bpm ECG Measurements Heart Rate 87 AXIS DC 172 P 48 QRSd 96 QRS 35 QT 371 T 42 QTc 447 Conclusion Sinus rhythm 87 normal axis no stemi
--- NOTE | 2024-07-16 10:30 | DI.RAD_ITS ---
Exam(s) XR CHEST 2V PA LATERAL EXAM: XR CHEST 2V PA LATERAL CLINICAL HISTORY: cough wL l sided CP TECHNIQUE: 2D digital imaging was performed of the chest. Two images were obtained. PA and lateral views were obtained. COMPARISON: CR,XR XR CHEST 2V PA LATERAL from 06/12/2024 FINDINGS: There is poor inspiration. MEDIASTINUM: Normal. HEART: Normal. PULMONARY VASCULATURE: Normal. LUNGS: Clear. PLEURAL SPACE: No pleural effusion or pneumothorax. BONE:Within normal limits for the patient's age. OTHER FINDINGS:Normal. IMPRESSION: No acute pulmonary findings. DATA REPOSITORY: RADIATION DOSE DELIVERED:
--- NOTE | 2024-07-16 10:51 | ED.GENADUL_ITS ---
Discharge Plan Disposition Patient Disposition: Home Discharge Details Clinical Impression: Left-sided chest pain, Hypocalcemia Primary Care Provider: Brendon Vivar ED Provider: Saranya Estrada Home Meds and New Rx's Prescriptions: No Action cyclobenzaprine 10 mg tablet 10 mg PO TID PRN (Reason: muscle spasm) Qty: 30 3RF gabapentin 300 mg capsule 300 mg PO BID Qty: 180 3RF methadone 10 mg/5 mL solution 100 mg PO QAM omeprazole 40 mg capsule,delayed release(DR/EC) 40 mg PO DAILY Qty: 90 3RF simethicone 125 mg tablet,chewable 125 mg PO QID PRN (Reason: abdominal distention) Qty: 20 3RF polyethylene glycol 3350 17 gram powder in packet 17 g PO DAILY Qty: 100 1RF calcitriol 0.5 mcg capsule 1 mcg PO .COMPLEX Qty: 270 3RF Rx Instructions: 1 mcg orally t2 tabs qam and 1 tab QHS; clonazepam 1 mg tablet 1 mg PO BID Qty: 56 0RF calcium carbonate [Tums] 200 mg calcium (500 mg) tablet,chewable 2,000 mg PO BID prochlorperazine maleate 5 mg tablet 5 mg PO TID PRN (Reason: acute nausea) Qty: 30 0RF benzonatate 200 mg capsule 200 mg PO TID PRN Patient Comments: TAKE ONE CAPSULE BY MOUTH EVERY 8 HOURS NEEDED FOR COUGH magnesium gluconate 27 mg magnesium (500 mg) tablet 13.5 mg PO TID Qty: 60 3RF promethazine 6.25 mg/5 mL syrup 12.5 mg PO Q6H PRN (Reason: cough) Qty: 120 0RF prednisone 20 mg tablet 40 mg PO ONCE Qty: 10 0RF Discharge Instructions Additional Instructions: Please call [facility] internal medicine first thing Friday morning to schedule follow-up appointment. Your cardiac workup today was reassuring. There is no sign of pneumonia on chest x-ray. Your calcium and magnesium were both low today and they were replenished here in the emergency department. Continue take your medications as prescribed. You may use lidocaine patches for discomfort. Ibuprofen and Tylenol may also be a good idea. You may use heat or ice, but be sure not to put this on top of the lidocaine patches. Return to emergency care if you develop new chest pains, high fevers, difficulty breathing, episodes of dizziness/passing out, or if you are very worried and need to be rechecked again immediately Referrals: Brendon Vivar DO [Primary Care Provider] - Discharge Data Discharge Date/Time-TO BE ENTERED AT DEPARTURE: 07/16/24 13:19 HPI General Date/Time Provider Initiated Documentation: 07/16/24 10:24 . HPI Narrative: Pedro Pablo is a 28 year old male who presents to the emergency department today for evaluation of L sided chest/shoulder pain. He reports that he woke up with the pain to his upper chest/anterior shoulder 3 days ago, initially attributed it to muscle strain because it hurt when he pushed on it. He took some cyclobenzaprine without any relief of symptoms. Since onset it has spread to the top of the left side of his chest and up to the shoulder, described as a dull pain that is deep inside. Sometimes this causes shortness of breath when he lays flat. He has also had a mild cough productive of clear sputum. Denies associated fever/chills, headache, dizziness, congestion, sore throat, hemoptysis, nausea/vomiting, change in bowel or bladder function, calf redness/swelling/tenderness. No recent surgery/immobility, hormone use. He admits to a history of chest pain, but says this is usually related to anxiety, but this episode is not related to anxiety. He does have a significant history of blood clots, including PE and multiple DVTs. Past medical history is significant for MEN type I, hyperparathyroidism, depression, and anxiety. Physical exam reassuring. Pedro Pablo is alert and oriented, no acute distress. Easy work of breathing, lung sounds clear bilaterally. Normal heart sounds. No pain, crepitus, or obvious deformity with palpation of left chest wall. D/dx includes but is not limited to: Muscular chest wall pain, ACS, PE, pneumonia, pneumothorax, viral illness. Heart score 1, indicating low risk of Mace. I independently interpreted the following tests: EKG reassuring, normal sinus rhythm rate 87, no changes consistent with acute ischemia, normal intervals. Leukocytosis noted, white cell count 14.1. Patient has been taking prednisone recently, prescribed on 07/14/2024. Magnesium slightly low at 1.7. CMP notable for hypocalcemia, 8.3. Troponin less than 4. BNP unremarkable. D-dimer negative. Chest x-ray reassuring, no obvious infiltrates noted. This was confirmed by radiologist. While in the emergency department, Pedro Pablo received IV calcium gluconate and magnesium for replenishment. Overall cardiac and pulmonary workup reassuring. Possibly related to muscle discomfort, though other etiologies may be contributory. Recommend further workup with PCP if this persists. Reviewed discharge instructions with patient, including symptomatic management and red flags indicating need for return to emergency care Related Data Home Medications ?Medication ?Instructions ?Recorded ?Confirmed calcium carbonate (Tums) 2,000 mg PO BID 02/02/23 07/16/24 methadone 10 mg/5 mL oral solution 100 mg PO QAM 06/12/23 07/16/24 omeprazole 40 mg capsule,delayed 40 mg PO DAILY #90 caps 07/21/23 07/16/24 release prochlorperazine maleate 5 mg 5 mg PO TID PRN acute nausea #30 09/06/23 07/16/24 tablet tabs magnesium gluconate 27 mg 13.5 mg (1/2 x 27 mg magnesium 11/21/23 07/16/24 magnesium (500 mg) tablet (500 mg)) PO TID #60 tabs simethicone 125 mg chewable tablet 125 mg PO QID PRN abdominal 03/12/24 07/16/24 distention #20 tabs polyethylene glycol 3350 17 gram 17 g PO DAILY #100 ea 04/09/24 07/16/24 oral powder packet promethazine 6.25 mg/5 mL oral 12.5 mg (10 mL) PO Q6H PRN cough 05/15/24 07/16/24 syrup #120 mL cyclobenzaprine 10 mg tablet 10 mg PO TID PRN muscle spasm #30 06/01/24 07/16/24 tabs gabapentin 300 mg capsule 300 mg PO BID #180 caps 06/01/24 07/16/24 calcitriol 0.5 mcg capsule 1 mcg (2 x 0.5 mcg) PO .COMPLEX 06/29/24 07/16/24 #270 caps clonazepam 1 mg tablet 1 mg PO BID #56 tabs 06/29/24 07/16/24 prednisone 20 mg tablet 40 mg (2 x 20 mg) PO ONCE #10 tabs 07/14/24 07/16/24 benzonatate 200 mg capsule 200 mg PO TID PRN 07/16/24 07/16/24 Previous Rx's ?Medication ?Instructions ?Recorded omeprazole 40 mg capsule,delayed 40 mg PO DAILY #90 caps 07/21/23 release prochlorperazine maleate 5 mg 5 mg PO TID PRN acute nausea #30 09/06/23 tablet tabs magnesium gluconate 27 mg 13.5 mg (1/2 x 27 mg magnesium 11/21/23 magnesium (500 mg) tablet (500 mg)) PO TID #60 tabs simethicone 125 mg chewable tablet 125 mg PO QID PRN abdominal 03/12/24 distention #20 tabs polyethylene glycol 3350 17 gram 17 g PO DAILY #100 ea 04/09/24 oral powder packet promethazine 6.25 mg/5 mL oral 12.5 mg (10 mL) PO Q6H PRN cough 05/15/24 syrup #120 mL cyclobenzaprine 10 mg tablet 10 mg PO TID PRN muscle spasm #30 06/01/24 tabs gabapentin 300 mg capsule 300 mg PO BID #180 caps 06/01/24 calcitriol 0.5 mcg capsule 1 mcg (2 x 0.5 mcg) PO .COMPLEX 06/29/24 #270 caps clonazepam 1 mg tablet 1 mg PO BID #56 tabs 06/29/24 prednisone 20 mg tablet 40 mg (2 x 20 mg) PO ONCE #10 tabs 07/14/24 Allergies Allergy/AdvReac Type Severity Reaction Status Date / Time codeine Allergy Intermediate pass out Verified 07/14/24 19:05 Penicillins Allergy Skin Rash Verified 07/14/24 19:05 marijuana (cannabis) AdvReac Severe Paranoia Verified 07/14/24 19:05 amoxicillin AdvReac Intermediate Nausea Verified 07/14/24 19:05 dextromethorphan (From AdvReac Intermediate got Verified 07/14/24 19:05 NyQuil) really hot and sweaty doxylamine (From NyQuil) AdvReac Intermediate got Verified 07/14/24 19:05 really hot and sweaty pseudoephedrine (From NyQuil) AdvReac Intermediate got Verified 07/14/24 19:05 really hot and sweaty General Stated Complaint: SOB ADRIANA: 3 Review of Systems Narrative: see HPI Exam Const General: cooperative, healthy appearing, comfortable, no acute distress and well developed Nutritional Appearance: average body habitus Orientation: alert and oriented x3 Chest Chest: normal palpation of entire chest wall Resp Effort & Inspection: normal respiratory effort and able to speak in complete sentences Auscultation: clear to auscultation bilaterally Cardio Rate: regular rate Rhythm: regular rhythm Course Vital Signs Vital signs: Vital Signs Temperature 36.4 C 07/16/24 10:23 Pulse 91 H 07/16/24 10:23 Respiratory Rate 16 07/16/24 10:23 Blood Pressure 149/103 H 07/16/24 10:23 Pulse Oximetry 97 07/16/24 10:23 Temperature 36.4 C 07/16/24 10:39 Temperature Source Oral 07/16/24 10:39 Pulse 91 H 07/16/24 10:39 Respiratory Rate 16 07/16/24 10:39 Respiratory Effort Normal, Non-Labored 07/16/24 10:39 Respiratory Depth Normal 07/16/24 10:39 Respiratory Pattern Normal 07/16/24 10:39 Blood Pressure 149/103 H 07/16/24 10:39 Blood Pressure Position Sitting 07/16/24 10:39 Pulse Oximetry 97 07/16/24 10:39 Oxygen Delivery Method Room Air 07/16/24 10:39 Oxygen Flow Rate 0 07/16/24 10:39 Pain Level 5 07/16/24 10:39 Medical Decision Making Imaging Data Radiologic Study: Radiologist's impression: Exam(s) XR CHEST 2V PA LATERAL EXAM: XR CHEST 2V PA LATERAL CLINICAL HISTORY: cough wL l sided CP TECHNIQUE: 2D digital imaging was performed of the chest. Two images were obtained. PA and lateral views were obtained. COMPARISON: CR,XR XR CHEST 2V PA LATERAL from 06/12/2024 FINDINGS: There is poor inspiration. MEDIASTINUM: Normal. HEART: Normal. PULMONARY VASCULATURE: Normal. LUNGS: Clear. PLEURAL SPACE: No pleural effusion or pneumothorax. BONE:Within normal limits for the patient's age. OTHER FINDINGS:Normal. IMPRESSION: No acute pulmonary findings. Quality:SDOH Health Related Social Needs: Health related social needs problems with daily activi ties (Z73.9) PFSH All Active Problems (Updated 07/16/24 @ 12:54 by Saranya Avila) Left-sided chest pain (Acute) Acute left lumbar radiculopathy (Acute) Patient request for diagnostic testing (Acute) Right calf pain (Acute) Anxiety (Chronic) Exposure to marijuana smoke (Acute) IBS (irritable bowel syndrome) (Chronic) Pain of right calf (Acute) Obesity (Chronic) Migraine with aura (Acute) Insect bite of leg, right (Acute) Testicle lump (Acute) Hamstring tendinitis of left thigh (Acute) Pes anserine bursitis (Acute) Hypernatremia (Acute) Cervical radiculopathy (Acute) Left-sided Flower's palsy (Acute) Constipation (Acute) Grief reaction (Chronic) Opiate dependence, continuous (Acute) 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 Possible 2' Methadone, Clnzpm (?). Surg eval (+)/No further action. History of electrolyte imbalance (Acute) Neck pain on left side (Acute) with shoulder, upper back pain.. torticollis, radiating into left hip/leg Pulmonary nodule 1 cm or greater in diameter (Chronic) Therapeutic opioid induced constipation (Acute) Sphincter of Oddi dysfunction (Chronic) Abnormal CT scan, kidney (Acute) Intrahepatic bile duct dilation (Acute) Common bile duct dilatation (Chronic) Has been dilated for quite some time, now more-so. Normal LFTs. Known gallstones. Iatrogenic hypocalcemia (Acute) Multiple endocrine neoplasia type I (Chronic) Depression (Chronic) Hypocalcemia (Chronic) Elevated parathyroid hormone (Acute) Family history of coronary arteriosclerosis (Chronic) Father of WA at 50, mother had WA at 42 Severe anxiety with panic (Chronic) Medical History Urinary tract infection CKD (chronic kidney disease) stage 2, GFR 60-89 ml/min GFR 64-65, with Hx FLORESITA and GFR < 45 Primary hyperparathyroidism Complex medical condition Serious electrolyte imbalances, with gynecomastia, possible MEN Dx, CKD and anemia with baseline anxiety and Hx PTSD. Hypocalcemia Anxiety Depression Hyperlipidemia Family history of multiple endocrine neoplasia, type 1 PTSD (post-traumatic stress disorder) Per pt. states no triggers at this time. Surgical History History of laparoscopic cholecystectomy (~11/2023) H/O parathyroidectomy Family History Mother Anxiety Asthma Depression Sister Anxiety Depression Father Cancer lung & stomach Depression Diabetes Hypertension MEN 1 (multiple endocrine neoplasia) Social History Smoking/Tobacco Use Status: Never Smoking risk assessment performed?: Yes Alcohol Intake: current Alcohol Intake frequency: holidays/special occasions only Alcohol type: beer Drug use: Current Sobriety Substance use type: former substance user, crack/cocaine, heroin and painkillers Details: stopped using substances for the passed 4 years Adopted: No Caregiver/Support person: No Foster care: No Household members: none Housing: apartment Number of Children: 0 Communication Needs: None Education Level: high school Do you need help understanding health information?: Never current occupation: [employer] Pets and animals: Yes (Ally) Pets and animals: dog(s) Sexually active: No Do you think of yourself as: straight/heterosexual Current gender identity: male What is your relationship status?: How often do you talk on the phone with friends or family?: twice per week How often do you get together with friends or relatives?: never Do you belong to any clubs or organized social groups?: no Panel score (0-1 are the most socially isolated patients): 0 What type of physical activity do you participate in: walking Duration: 15-30 minutes/day Frequency: 5-6 times per week Maryam/Zoroastrianism: Roman Catholic Special maryam needs: No Seatbelt use: always Helmet use: Yes Helmet use: always 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
[2024-07-16 11:27] LABS: Abs Immature Grans 0.05 10^3/uL (0.0-0.06); Absolute Basophil Count 0.03 10^3/uL (0.0-0.2); Absolute Lymphocyte Count 2.74 10^3/uL (1.2-3.4); Absolute Neutrophil Count 9.86 10^3/uL (1.2-6.7); Basophils % 0.2 %; Eosinophils % 0.7 %; HCT 33.1 % (40.0-50.0); HGB 10.5 g/dL (13.5-17.5); Immature Grans % 0.4 %; Lymphocytes % 19.4 %; MCH 27.1 pg (27.0-33.0); MCHC 31.7 % (32.0-36.0); MCV 85 fL (80-95); MPV 9.7 fL (8.0-11.0); Monocytes % 9.4 %; Neutrophils % 69.9 %; Platelet Count 422 10^3/uL (130-400); RBC 3.88 10^6/uL (4.36-5.78); RDW 14.4 % (11.8-14.1); RDW-SD 44.7 fL
[2024-07-16 11:28] LABS: Absolute Monocyte Count 1.33 10^3/uL (0.1-0.8)
[2024-07-16] MEDS: Famotidine 20 MG TAB (11:47)
[2024-07-16 11:52] LABS: ALT 22 U/L (16-63); AST 25 U/L (15-37); Alkaline Phosphatase 150 U/L (46-116); Anion Gap 8.4 mmol/L (3-11); BUN 13 mg/dL (7-18); CO2 29.6 mmol/L (21.0-32.0); CREATININE 1.2 mg/dL (0.70-1.30); Calcium 8.3 mg/dL (8.5-10.1); Chloride 103 mmol/L (98-107); Estimated GFR 83.43 (mL/min/1.73m2); Glucose 90 mg/dL (74-106); Magnesium 1.7 mg/dL (1.8-2.4); NT-proBNP 51 pg/mL (<300); Potassium 3.9 mmol/L (3.5-5.1); Sodium 141 mmol/L (136-145); Total Protein 7.8 g/dL (6.4-8.2)
[2024-07-16 11:53] LABS: Bilirubin, Total < 0.10 mg/dL (0.2-1.0); Troponin I < 4 ng/L (<or=76)
[2024-07-16 12:01] LABS: D-Dimer 228 ng/mlFEU (<500)
[2024-07-16] MEDS: Magnesium Oxide 400 MG TAB PO (12:39)
[2024-07-16] MEDS: CALCIUM GLUCONATE in NaCl 1 GM/50 ML BAG IVPB (12:40)
[2024-07-16] MEDS: Ketorolac 15 MG/ML VIAL IVP (12:40)
[2024-07-16] MEDS: Lidocaine 5% Patch 1 PATCH TP (12:41)
== END 2024-07-16 13:19 | disposition home or self-care (01) ==
PROVIDERS: Emergency Provider Nurse Practitioner Family; PCP Family Medicine
DX: R07.9 Chest pain, unspecified (principal); E83.51 Hypocalcemia
CPT/HCPCS: 80053; 93005; 96365; 96375; 99284; 71046; 83735; 83880; 84484; 85025; 85379; 93010; J0613; J1885

== ENCOUNTER 2024-07-22 08:24 | Emergency (ER) | payer OTHER, SELFPAY ==
[2024-07-22 08:27] VITALS: BP 126/56; PULSE 115; RESP 17; TEMP 37.1; O2SAT 98
[2024-07-22 08:30] VITALS: BP 126/56; PULSE 115; RESP 17; TEMP 37.1; O2SAT 98
[2024-07-22 08:58] LABS: Abs Immature Grans 0.04 10^3/uL (0.0-0.06); Absolute Basophil Count 0.04 10^3/uL (0.0-0.2); Absolute Eosinophil Count 0.32 10^3/uL (0.0-0.7); Absolute Lymphocyte Count 2.38 10^3/uL (1.2-3.4); Absolute Monocyte Count 0.85 10^3/uL (0.1-0.8); Absolute Neutrophil Count 3.98 10^3/uL (1.2-6.7); Basophils % 0.5 %; Eosinophils % 4.2 %; HCT 31.4 % (40.0-50.0); HGB 9.8 g/dL (13.5-17.5); Immature Grans % 0.5 %; Lymphocytes % 31.3 %; MCH 26.9 pg (27.0-33.0); MCHC 31.2 % (32.0-36.0); MCV 86 fL (80-95); MPV 9.4 fL (8.0-11.0); Monocytes % 11.2 %; Neutrophils % 52.3 %; Platelet Count 336 10^3/uL (130-400); RBC 3.64 10^6/uL (4.36-5.78); RDW 14.4 % (11.8-14.1); RDW-SD 45.1 fL; WBC 7.61 10^3/uL (4.4-10.8)
[2024-07-22 09:01] LABS: Bilirubin Negative (Negative); Blood Negative (Negative); Clarity Sl Cloudy (Clear); Glucose Negative (Negative); Ketones Negative (Negative); Leukocyte Esterase Negative (Negative); Nitrite Negative (Negative); Specific Gravity 1.015 (1.005-1.025); Urobilinogen 0.2 mg/dL (Up to 0.2); pH 6.5 (5-8)
--- NOTE | 2024-07-22 09:15 | DI.RAD_ITS ---
Exam(s) XR ABDOMEN FLAT UPRIGHT EXAM: 2D digital imaging was performed. CLINICAL HISTORY: abd pain, constipation. COMPARISON: No exams were available for comparison TECHNIQUE: Supine and uprightSupine and Lateral views of the abdomen were performed. FINDINGS: BOWEL GAS PATTERN: Nondistended.No free air. There is a large quantity of fecal material noted throu ghout the colon consistent constipation CALCIFICATIONS: No visible urinary tract calcifications. OSSEOUS STRUCTURES: Normal for age. Visualized portions of chest: Unremarkable. Soft tissues: Surgical clips in right upper quadrant and pelvis. IMPRESSION: 1. Nonobstructive bowel gas pattern. 2. Large quantity of fecal material consistent with constipation. DATA REPOSITORY: RADIATION DOSE DELIVERED:
[2024-07-22 09:20] LABS: ALT 43 U/L (16-63); AST 25 U/L (15-37); Albumin 2.9 g/dL (3.4-5.0); Alkaline Phosphatase 141 U/L (46-116); Anion Gap 4.2 mmol/L (3-11); BUN 25 mg/dL (7-18); Bilirubin, Total 0.24 mg/dL (0.2-1.0); CO2 35.8 mmol/L (21.0-32.0); CREATININE 1.6 mg/dL (0.70-1.30); Calcium 10.2 mg/dL (8.5-10.1); Chloride 103 mmol/L (98-107); Estimated GFR 59.08 (mL/min/1.73m2); Glucose 99 mg/dL (74-106); Lipase 24 U/L (<78); Potassium 3.5 mmol/L (3.5-5.1); Sodium 143 mmol/L (136-145)
--- NOTE | 2024-07-22 10:26 | W.ED.GENAD ---
Discharge Plan Disposition Patient Disposition: Home Condition: Stable Discharge Details Clinical Impression: Constipation Primary Care Provider: Brendon Vivar ED Provider: Anna Ocampo Home Meds and New Rx's Prescriptions: Continued cyclobenzaprine 10 mg tablet 10 mg PO TID PRN (Reason: muscle spasm) Qty: 30 3RF gabapentin 300 mg capsule 300 mg PO BID Qty: 180 3RF methadone 10 mg/5 mL solution 100 mg PO QAM omeprazole 40 mg capsule,delayed release(DR/EC) 40 mg PO DAILY Qty: 90 3RF simethicone 125 mg tablet,chewable 125 mg PO QID PRN (Reason: abdominal distention) Qty: 20 3RF calcitriol 0.5 mcg capsule 1 mcg PO .COMPLEX Qty: 270 3RF Rx Instructions: 1 mcg orally t2 tabs qam and 1 tab QHS; clonazepam 1 mg tablet 1 mg PO BID Qty: 56 0RF calcium carbonate [Tums] 200 mg calcium (500 mg) tablet,chewable 2,000 mg PO BID prochlorperazine maleate 5 mg tablet 5 mg PO TID PRN (Reason: acute nausea) Qty: 30 0RF benzonatate 200 mg capsule 200 mg PO TID PRN Patient Comments: TAKE ONE CAPSULE BY MOUTH EVERY 8 HOURS NEEDED FOR COUGH magnesium gluconate 27 mg magnesium (500 mg) tablet 13.5 mg PO TID Qty: 60 3RF promethazine 6.25 mg/5 mL syrup 12.5 mg PO Q6H PRN (Reason: cough) Qty: 120 0RF prednisone 20 mg tablet 40 mg PO ONCE Qty: 10 0RF Changed polyethylene glycol 3350 17 gram powder in packet 17 g PO BID Qty: 100 1RF Discharge Instructions Instructions: Constipation in adults Additional Instructions: Drink at least 6 to 8 glasses of water or more daily to stay well-hydrated Increase MiraLAX to twice daily until your bowels are moving well Referrals: Brendon Vivar DO [Primary Care Provider] - HPI General Mode of arrival: ambulatory. Date/Time Provider Initiated Documentation: 07/22/24 08:35. Limitations to Documentation: no limitations. Information obtained by: patient. HPI Narrative: This is a 28-year-old male patient well-known to the emergency department for excessive use for multiple complaints. Presenting today for sudden onset of right-sided abdominal pain that came on after he stretched to get into his truck. He denies any fever or chills. No nausea or vomiting. No diarrhea. Reports he has been constipated with hard stool. He has been eating and drinking and voiding without difficulty. Denies any trauma. Denies any similar history no sick contacts with similar symptoms Related Data Home Medications ?Medication ?Instructions ?Recorded ?Confirmed calcium carbonate (Tums) 2,000 mg PO BID 02/02/23 07/22/24 methadone 10 mg/5 mL oral solution 100 mg PO QAM 06/12/23 07/22/24 omeprazole 40 mg capsule,delayed 40 mg PO DAILY #90 caps 07/21/23 07/22/24 release prochlorperazine maleate 5 mg 5 mg PO TID PRN acute nausea #30 09/06/23 07/22/24 tablet tabs magnesium gluconate 27 mg 13.5 mg (1/2 x 27 mg magnesium 11/21/23 07/22/24 magnesium (500 mg) tablet (500 mg)) PO TID #60 tabs simethicone 125 mg chewable tablet 125 mg PO QID PRN abdominal 03/12/24 07/22/24 distention #20 tabs promethazine 6.25 mg/5 mL oral 12.5 mg (10 mL) PO Q6H PRN cough 05/15/24 07/22/24 syrup #120 mL cyclobenzaprine 10 mg tablet 10 mg PO TID PRN muscle spasm #30 06/01/24 07/22/24 tabs gabapentin 300 mg capsule 300 mg PO BID #180 caps 06/01/24 07/22/24 calcitriol 0.5 mcg capsule 1 mcg (2 x 0.5 mcg) PO .COMPLEX 06/29/24 07/22/24 #270 caps clonazepam 1 mg tablet 1 mg PO BID #56 tabs 06/29/24 07/22/24 prednisone 20 mg tablet 40 mg (2 x 20 mg) PO ONCE #10 tabs 07/14/24 07/22/24 benzonatate 200 mg capsule 200 mg PO TID PRN 07/16/24 07/22/24 polyethylene glycol 3350 17 gram 17 g PO BID #100 ea 07/22/24 07/22/24 oral powder packet Previous Rx's ?Medication ?Instructions ?Recorded omeprazole 40 mg capsule,delayed 40 mg PO DAILY #90 caps 07/21/23 release prochlorperazine maleate 5 mg 5 mg PO TID PRN acute nausea #30 09/06/23 tablet tabs magnesium gluconate 27 mg 13.5 mg (1/2 x 27 mg magnesium 11/21/23 magnesium (500 mg) tablet (500 mg)) PO TID #60 tabs simethicone 125 mg chewable tablet 125 mg PO QID PRN abdominal 03/12/24 distention #20 tabs promethazine 6.25 mg/5 mL oral 12.5 mg (10 mL) PO Q6H PRN cough 05/15/24 syrup #120 mL cyclobenzaprine 10 mg tablet 10 mg PO TID PRN muscle spasm #30 06/01/24 tabs gabapentin 300 mg capsule 300 mg PO BID #180 caps 06/01/24 calcitriol 0.5 mcg capsule 1 mcg (2 x 0.5 mcg) PO .COMPLEX 06/29/24 #270 caps clonazepam 1 mg tablet 1 mg PO BID #56 tabs 06/29/24 prednisone 20 mg tablet 40 mg (2 x 20 mg) PO ONCE #10 tabs 07/14/24 polyethylene glycol 3350 17 gram 17 g PO BID #100 ea 07/22/24 oral powder packet Allergies Allergy/AdvReac Type Severity Reaction Status Date / Time codeine Allergy Intermediate pass out Verified 07/22/24 08:31 Penicillins Allergy Skin Rash Verified 07/22/24 08:31 marijuana (cannabis) AdvReac Severe Paranoia Verified 07/22/24 08:31 amoxicillin AdvReac Intermediate Nausea Verified 07/22/24 08:31 dextromethorphan (From AdvReac Intermediate got Verified 07/22/24 08:31 NyQuil) really hot and sweaty doxylamine (From NyQuil) AdvReac Intermediate got Verified 07/22/24 08:31 really hot and sweaty pseudoephedrine (From NyQuil) AdvReac Intermediate got Verified 07/22/24 08:31 really hot and sweaty General Stated Complaint: Abd Prob ADRIANA: 3 Review of Systems All systems reviewed & are unremarkable except as noted in HPI and below Exam Narrative Exam Narrative: Obese male chronically ill-appearing older than stated age in no acute distress head is atraumatic oral mucosas moist eyes nonicteric noninjected neck full range of motion respirations even and unlabored cardiovascular regular rate and rhythm abdomen is obese soft distended does report some tenderness on palpation there is no guarding no masses. Old surgical scars from laparoscopic cholecystectomy well-healed. Moves extremities without edema. Psychiatric blunted mood and affect Course Vital Signs Vital signs: Vital Signs Temperature 37.1 C 07/22/24 08:27 Pulse 115 H 07/22/24 08:27 Respiratory Rate 17 07/22/24 08:27 Blood Pressure 126/56 L 07/22/24 08:27 Pulse Oximetry 98 07/22/24 08:27 Temperature 37.1 C 07/22/24 08:30 Temperature Source Temporal Artery Scan 07/22/24 08:30 Pulse 115 H 07/22/24 08:30 Respiratory Rate 17 07/22/24 08:30 Blood Pressure 126/56 L 07/22/24 08:30 Blood Pressure Position Sitting 07/22/24 08:30 Pulse Oximetry 98 07/22/24 08:30 Oxygen Delivery Method Room Air 07/22/24 08:30 Oxygen Flow Rate 0 07/22/24 08:30 Pain Level 6 07/22/24 08:57 Lab/Test Results Lab/Test Results: Laboratory Tests Range/Units 07/22/24 07/22/24 08:49 08:52 WBC (4.4-10.8) 10^3/uL 7.61 RBC (4.36-5.78) 10^6/uL 3.64 L Hgb (13.5-17.5) g/dL 9.8 L Hct (40.0-50.0) % 31.4 L MCV (80-95) fL 86 MCH (27.0-33.0) pg 26.9 L MCHC (32.0-36.0) % 31.2 L RDW (11.8-14.1) % 14.4 H Plt Count (130-400) 10^3/uL 336 MPV (8.0-11.0) fL 9.4 Immature Gran % % 0.5 Neutrophils % % 52.3 Lymphocytes % % 31.3 Monocytes % % 11.2 Eosinophils % % 4.2 Basophils % % 0.5 Nucleated RBC % (0.0-0.3) % 0.0 Absolute Neutrophils (1.2-6.7) 10^3/uL 3.98 Absolute Lymphocytes (1.2-3.4) 10^3/uL 2.38 Absolute Monocytes (0.1-0.8) 10^3/uL 0.85 H Absolute Eosinophils (0.0-0.7) 10^3/uL 0.32 Absolute Basophils (0.0-0.2) 10^3/uL 0.04 Sodium (136-145) mmol/L 143 Potassium (3.5-5.1) mmol/L 3.5 Chloride (98-107) mmol/L 103 Carbon Dioxide (21.0-32.0) mmol/L 35.8 H Anion Gap (3-11) mmol/L 4.2 BUN (7-18) mg/dL 25 H Creatinine (0.70-1.30) mg/dL 1.6 H Est GFR (CKD-EPI 2020) (mL/min/1.73m2) 59.08 Glucose (74-106) mg/dL 99 Calcium (8.5-10.1) mg/dL 10.2 H Total Bilirubin (0.2-1.0) mg/dL 0.24 AST (15-37) U/L 25 ALT (16-63) U/L 43 Alkaline Phosphatase (46-116) U/L 141 H Total Protein (6.4-8.2) g/dL 7.0 Albumin (3.4-5.0) g/dL 2.9 L Lipase (<78) U/L 24 Urine Color (Yellow) Yellow Urine Clarity (Clear) Sl Cloudy Urine pH (5-8) 6.5 Ur Specific [place] (1.005-1.025) 1.015 Urine Protein (Neg-Trace) mg/dL Negative Urine Ketones (Negative) mg/dL Negative Urine Blood (Negative) Negative Urine Nitrite (Negative) Negative Urine Bilirubin (Negative) Negative Urine Urobilinogen (Up to 0.2) mg/dL 0.2 Ur Leukocyte Esterase (Negative) Negative Urine Glucose (Negative) mg/dL Negative Medical Decision Making Patient presents with symptoms of abdominal pain, hemodynamically stable taking p.o. reporting constipation. Will just check routine lab including CBC CMP and lipase symptoms are most consistent probably with his constipation. He has been passing flatus so doubt obstruction. Abdominal exam benign so doubt perforation. Labs unremarkable creatinine is 1.6 but he has had baseline in that range. He is tolerating p.o. Medical Records Medical records reviewed: Yes I reviewed the patient's medical records. Imaging Data Radiologic Study: Imaging: X-Ray My impression: Exam(s) XR ABDOMEN FLAT UPRIGHT EXAM: 2D digital imaging was performed. CLINICAL HISTORY: abd pain, constipation. COMPARISON: No exams were available for comparison TECHNIQUE: Supine and uprightSupine and Lateral views of the abdomen were performed. FINDINGS: BOWEL GAS PATTERN: Nondistended.No free air. There is a large quantity of fecal material noted throughout the colon consistent constipation CALCIFICATIONS: No visible urinary tract calcifications. OSSEOUS STRUCTURES: Normal for age. Visualized portions of chest: Unremarkable. Soft tissues: Surgical clips in right upper quadrant and pelvis. IMPRESSION: 1. Nonobstructive bowel gas pattern. 2. Large quantity of fecal material consistent with constipation. Lab Data Lab results reviewed: Yes I reviewed the patient's lab results. Lab results narrative: Laboratory Tests Range/Units 07/22/24 07/22/24 08:49 08:52 WBC (4.4-10.8) 10^3/uL 7.61 RBC (4.36-5.78) 10^6/uL 3.64 L Hgb (13.5-17.5) g/dL 9.8 L Hct (40.0-50.0) % 31.4 L MCV (80-95) fL 86 MCH (27.0-33.0) pg 26.9 L MCHC (32.0-36.0) % 31.2 L RDW (11.8-14.1) % 14.4 H Plt Count (130-400) 10^3/uL 336 MPV (8.0-11.0) fL 9.4 Immature Gran % % 0.5 Neutrophils % % 52.3 Lymphocytes % % 31.3 Monocytes % % 11.2 Eosinophils % % 4.2 Basophils % % 0.5 Nucleated RBC % (0.0-0.3) % 0.0 Absolute Neutrophils (1.2-6.7) 10^3/uL 3.98 Absolute Lymphocytes (1.2-3.4) 10^3/uL 2.38 Absolute Monocytes (0.1-0.8) 10^3/uL 0.85 H Absolute Eosinophils (0.0-0.7) 10^3/uL 0.32 Absolute Basophils (0.0-0.2) 10^3/uL 0.04 Sodium (136-145) mmol/L 143 Potassium (3.5-5.1) mmol/L 3.5 Chloride (98-107) mmol/L 103 Carbon Dioxide (21.0-32.0) mmol/L 35.8 H Anion Gap (3-11) mmol/L 4.2 BUN (7-18) mg/dL 25 H Creatinine (0.70-1.30) mg/dL 1.6 H Est GFR (CKD-EPI 2020) (mL/min/1.73m2) 59.08 Glucose (74-106) mg/dL 99 Calcium (8.5-10.1) mg/dL 10.2 H Total Bilirubin (0.2-1.0) mg/dL 0.24 AST (15-37) U/L 25 ALT (16-63) U/L 43 Alkaline Phosphatase (46-116) U/L 141 H Total Protein (6.4-8.2) g/dL 7.0 Albumin (3.4-5.0) g/dL 2.9 L Lipase (<78) U/L 24 Urine Color (Yellow) Yellow Urine Clarity (Clear) Sl Cloudy Urine pH (5-8) 6.5 Ur Specific [place] (1.005-1.025) 1.015 Urine Protein (Neg-Trace) mg/dL Negative Urine Ketones (Negative) mg/dL Negative Urine Blood (Negative) Negative Urine Nitrite (Negative) Negative Urine Bilirubin (Negative) Negative Urine Urobilinogen (Up to 0.2) mg/dL 0.2 Ur Leukocyte Esterase (Negative) Negative Urine Glucose (Negative) mg/dL Negative Quality:SDOH Health Related Social Needs: Health related social needs problems with daily activities (Z73.9) PFSH All Active Problems (Updated 07/22/24 @ 10:32 by Anna Ocampo NP) Constipation (Acute) Left-sided chest pain (Acute) Acute left lumbar radiculopathy (Acute) Patient request for diagnostic testing (Acute) Right calf pain (Acute) Anxiety (Chronic) Exposure to marijuana smoke (Acute) IBS (irritable bowel syndrome) (Chronic) Pain of right calf (Acute) Obesity (Chronic) Migraine with aura (Acute) Insect bite of leg, right (Acute) Testicle lump (Acute) Hamstring tendinitis of left thigh (Acute) Pes anserine bursitis (Acute) Hypernatremia (Acute) Cervical radiculopathy (Acute) Left-sided Lfower's palsy (Acute) Constipation (Acute) Grief reaction (Chronic) Opiate dependence, continuous (Acute) 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 Possible 2' Methadone, Clnzpm (?). Surg eval (+)/No further action. History of electrolyte imbalance (Acute) Neck pain on left side (Acute) with shoulder, upper back pain.. torticollis, radiating into left hip/leg Pulmonary nodule 1 cm or greater in diameter (Chronic) Therapeutic opioid induced constipation (Acute) Sphincter of Oddi dysfunction (Chronic) Abnormal CT scan, kidney (Acute) Intrahepatic bile duct dilation (Acute) Common bile duct dilatation (Chronic) Has been dilated for quite some time, now more-so. Normal LFTs. Known gallstones. Iatrogenic hypocalcemia (Acute) Multiple endocrine neoplasia type I (Chronic) Depression (Chronic) Hypocalcemia (Chronic) Elevated parathyroid hormone (Acute) Family history of coronary arteriosclerosis (Chronic) Father of [place] at 50, mother had [place] at 42 Severe anxiety with panic (Chronic) Medical History Urinary tract infection CKD (chronic kidney disease) stage 2, GFR 60-89 ml/min GFR 64-65, with Hx FLORESITA and GFR < 45 Primary hyperparathyroidism Complex medical condition Serious electrolyte imbalances, with gynecomastia, possible MEN Dx, CKD and anemia with baseline anxiety and Hx PTSD. Hypocalcemia Anxiety Depression Hyperlipidemia Family history of multiple endocrine neoplasia, type 1 PTSD (post-traumatic stress disorder) Per pt. states no triggers at this time. Surgical History History of laparoscopic cholecystectomy (~11/2023) H/O parathyroidectomy Family History Mother Anxiety Asthma Depression Sister Anxiety Depression Father Cancer lung & stomach Depression Diabetes Hypertension MEN 1 (multiple endocrine neoplasia) Social History Smoking/Tobacco Use Status: Never Smoking risk assessment performed?: Yes Alcohol Intake: current Alcohol Intake frequency: holidays/special occasions only Alcohol type: beer Drug use: Current Sobriety Substance use type: former substance user, crack/cocaine, heroin and painkillers Details: stopped using substances for the passed 4 years Adopted: No Caregiver/Support person: No Foster care: No Household members: none Housing: apartment Number of Children: 0 Communication Needs: None Education Level: high school Do you need help understanding health information?: Never current occupation: [employer] Pets and animals: Yes (Ally) Pets and animals: dog(s) Sexually active: No Do you think of yourself as: straight/heterosexual Current gender identity: male What is your relationship status?: How often do you talk on the phone with friends or family?: twice per week How often do you get together with friends or relatives?: never Do you belong to any clubs or organized social groups?: no Panel score (0-1 are the most socially isolated patients): 0 What type of physical activity do you participate in: walking Duration: 15-30 minutes/day Frequency: 5-6 times per week Maryam/Oriental Orthodox: Adventism Special maryam needs: No Seatbelt use: always Helmet use: Yes Helmet use: always Drive intox or ride w/intox 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
[2024-07-22 10:33] VITALS: BP 107/69; PULSE 75; RESP 14; O2SAT 98
== END 2024-07-22 11:03 | disposition home or self-care (01) ==
PROVIDERS: Emergency Provider Nurse Practitioner Acute Care; PCP Family Medicine
DX: K59.00 Constipation, unspecified (principal); R10.11 Right upper quadrant pain; N18.2 Chronic kidney disease, stage 2 (mild); E89.2 Postprocedural hypoparathyroidism
CPT/HCPCS: 36415; 80053; 83690; 99284; 74019; 81003; 85025; 99283

== ENCOUNTER 2024-07-29 10:32 | Emergency (ER) | payer OTHER, SELFPAY ==
[2024-07-29 10:37] VITALS: BP 150/104; PULSE 95; RESP 20; TEMP 36.6; O2SAT 94
--- NOTE | 2024-07-29 10:45 | DI.RAD_ITS ---
Exam(s) XR CHEST 2V PA LATERAL EXAM: XR CHEST 2V PA LATERAL CLINICAL HISTORY: Rhonchi R base. TECHNIQUE: 2D digital imaging was performed. COMPARISON: CR XR CHEST 2V PA LATERAL from 07/16/2024 FINDINGS: 2 views: Heart size is normal. The mediastinum is not widened. Lungs are clear. No infiltrates nor pleural effusions. IMPRESSION: No acute pulmonary findings. DATA REPOSITORY: RADIATION DOSE DELIVERED:
--- NOTE | 2024-07-29 10:51 | ED.GENADUL_ITS ---
Discharge Plan Disposition Patient Disposition: Home Condition: Stable Discharge Details Clinical Impression: Upper respiratory infection, Hypercalcemia Primary Care Provider: Brendon Vivar ED Provider: Richy Oakes Home Meds and New Rx's Prescriptions: Continued cyclobenzaprine 10 mg tablet 10 mg PO TID PRN (Reason: muscle spasm) Qty: 30 3RF gabapentin 300 mg capsule 300 mg PO BID Qty: 180 3RF clonazepam 1 mg tablet 1 mg PO BID Qty: 55 0RF Zepbound 2.5 mg/0.5 mL pen injector 2.5 mg subcut QWEEK Qty: 2 0RF Rx Instructions: for 4 weeks omeprazole 40 mg capsule,delayed release(DR/EC) 40 mg PO DAILY Qty: 90 3RF methadone 10 mg/5 mL solution 100 mg PO QAM simethicone 125 mg tablet,chewable 125 mg PO QID PRN (Reason: abdominal distention) Qty: 20 3RF calcitriol 0.5 mcg capsule 1 mcg PO .COMPLEX Qty: 270 3RF Rx Instructions: 1 mcg orally t2 tabs qam and 1 tab QHS; prochlorperazine maleate 5 mg tablet 5 mg PO TID PRN (Reason: acute nausea) Qty: 30 0RF benzonatate 200 mg capsule 200 mg PO TID PRN Patient Comments: TAKE ONE CAPSULE BY MOUTH EVERY 8 HOURS NEEDED FOR COUGH magnesium gluconate 27 mg magnesium (500 mg) tablet 13.5 mg PO TID Qty: 60 3RF promethazine 6.25 mg/5 mL syrup 12.5 mg PO Q6H PRN (Reason: cough) Qty: 120 0RF prednisone 20 mg tablet 40 mg PO ONCE Qty: 10 0RF polyethylene glycol 3350 17 gram powder in packet 17 g PO BID Qty: 100 1RF Held calcium carbonate [Tums] 200 mg calcium (500 mg) tablet,chewable 2,000 mg PO BID Hold Instructions: Resume on 08/02/24. Call PCP for re-check of calcium Friday- then consider resuming TUMS Discharge Instructions Instructions: Hypercalcemia (DC), Upper Respiratory Infection ED Additional Instructions: You were seen in the emergency department for your upper respiratory infection, you tested negative for COVID and the flu and RSV. Her chest x-ray is clear of any pneumonia. Your electrolytes are within normal limits save for some mild elevation of your calcium which is atypical for you, I suggest you take a couple to few days off of your Tums and have your calcium rechecked at outpatient visit, contact your provider that handles your parathyroid pathology for more specific instructions on when to resume Tums. Please return to the emergency department for any emergent concerns like profound shortness of breath, high fevers not responding to Tylenol and ibuprofen, not making any urine or other emergent concerns like chest pain. Stand Alone Forms: Work Release Referrals: Brendon Vivar DO [Primary Care Provider] - Discharge Data Discharge Date/Time-TO BE ENTERED AT DEPARTURE: 07/29/24 12:14 HPI General Date/Time Provider Initiated Documentation: 07/29/24 10:51 . HPI Narrative: 28 year-old male presents to ED today by POV/ambulating with a chief complaint of cough, vomiting x2 today, chills, body aches, feels that his electrolytes may be off with onset this morning. Quality described as generalized malaise, no radiation to respiratory distress, chest pain, abdominal pain, vomiting, diarrhea, shortness of breath. Severity is described as moderate. Palliating factors include ibuprofen this morning with some relief. Provoking factors include nothing specific. Patient not anticoagulated. Related Data Home Medications ?Medication ?Instructions ?Recorded ?Confirmed calcium carbonate (Tums) 2,000 mg PO BID 02/02/23 07/29/24 methadone 10 mg/5 mL oral solution 100 mg PO QAM 06/12/23 07/29/24 prochlorperazine maleate 5 mg 5 mg PO TID PRN acute nausea #30 09/06/23 07/29/24 tablet tabs magnesium gluconate 27 mg 13.5 mg (1/2 x 27 mg magnesium 11/21/23 07/29/24 magnesium (500 mg) tablet (500 mg)) PO TID #60 tabs simethicone 125 mg chewable tablet 125 mg PO QID PRN abdominal 03/12/24 07/29/24 distention #20 tabs promethazine 6.25 mg/5 mL oral 12.5 mg (10 mL) PO Q6H PRN cough 05/15/24 07/29/24 syrup #120 mL cyclobenzaprine 10 mg tablet 10 mg PO TID PRN muscle spasm #30 06/01/24 07/29/24 tabs gabapentin 300 mg capsule 300 mg PO BID #180 caps 06/01/24 07/29/24 calcitriol 0.5 mcg capsule 1 mcg (2 x 0.5 mcg) PO .COMPLEX 06/29/24 07/29/24 #270 caps prednisone 20 mg tablet 40 mg (2 x 20 mg) PO ONCE #10 tabs 07/14/24 07/29/24 benzonatate 200 mg capsule 200 mg PO TID PRN 07/16/24 07/29/24 polyethylene glycol 3350 17 gram 17 g PO BID #100 ea 07/22/24 07/29/24 oral powder packet clonazepam 1 mg tablet 1 mg PO BID #55 tabs 07/27/24 07/29/24 omeprazole 40 mg capsule,delayed 40 mg PO DAILY #90 caps 07/27/24 07/29/24 release tirzepatide (weight loss) 2.5 2.5 mg (0.5 mL) subcut QWEEK #2 mL 07/27/24 07/29/24 mg/0.5 mL subcutaneous pen injector (Zepbound) Previous Rx's ?Medication ?Instructions ?Recorded prochlorperazine maleate 5 mg 5 mg PO TID PRN acute nausea #30 09/06/23 tablet tabs magnesium gluconate 27 mg 13.5 mg (1/2 x 27 mg magnesium 11/21/23 magnesium (500 mg) tablet (500 mg)) PO TID #60 tabs simethicone 125 mg chewable tablet 125 mg PO QID PRN abdominal 03/12/24 distention #20 tabs promethazine 6.25 mg/5 mL oral 12.5 mg (10 mL) PO Q6H PRN cough 05/15/24 syrup #120 mL cyclobenzaprine 10 mg tablet 10 mg PO TID PRN muscle spasm #30 06/01/24 tabs gabapentin 300 mg capsule 300 mg PO BID #180 caps 06/01/24 calcitriol 0.5 mcg capsule 1 mcg (2 x 0.5 mcg) PO .COMPLEX 06/29/24 #270 caps prednisone 20 mg tablet 40 mg (2 x 20 mg) PO ONCE #10 tabs 07/14/24 polyethylene glycol 3350 17 gram 17 g PO BID #100 ea 07/22/24 oral powder packet clonazepam 1 mg tablet 1 mg PO BID #55 tabs 07/27/24 omeprazole 40 mg capsule,delayed 40 mg PO DAILY #90 caps 07/27/24 release tirzepatide (weight loss) 2.5 2.5 mg (0.5 mL) subcut QWEEK #2 mL 07/27/24 mg/0.5 mL subcutaneous pen injector (Zepbound) Allergies Allergy/AdvReac Type Severity Reaction Status Date / Time codeine Allergy Intermediate pass out Verified 07/29/24 10:41 Penicillins Allergy Skin Rash Verified 07/29/24 10:41 marijuana (cannabis) AdvReac Severe Paranoia Verified 07/29/24 10:41 amoxicillin AdvReac Intermediate Nausea Verified 07/29/24 10:41 dextromethorphan (From AdvReac Intermediate got Verified 07/29/24 10:41 NyQuil) really hot and sweaty doxylamine (From NyQuil) AdvReac Intermediate got Verified 07/29/24 10:41 really hot and sweaty pseudoephedrine (From NyQuil) AdvReac Intermediate got Verified 07/29/24 10:41 really hot and sweaty General Stated Complaint: Nausea/Vomit/Diar ADRIANA: 3 Review of Systems All systems reviewed & are unremarkable except as noted in HPI and below Exam Narrative Exam Narrative: GENERAL APPEARANCE: Well-nourished, non-toxic, awake and alert, atraumatic, no acute distress. SKIN: Warm, pink, dry, intact, without rashes/lesions/ulcerations. HEAD: Normocephalic, atraumatic, normal hair distribution for gender/age. EYES: Normal conjunctiva, no exudates on lids/lashes. ENT: Nares patent, no circumoral cyanosis, no facial swelling, benign posterior oropharynx NECK: Supple, trachea midline, painless cervical ROM. LUNGS/CHEST: Lungs CTA bilaterally, non-labored respirations, normal A/P diameter, symmetrical expansion, no chest wall deformity HEART (CV/PV): Regular rate and rhythm without murmur, no peripheral edema, no JVD. ABDOMEN: Soft, non-distended, no guarding. MSK: Normal ROM, no swelling/deformity to bilateral UEs or LEs, moving all extremities without weakness, no cyanosis, spine midline without tenderness, normal curvature. NEURO: Mental Status AAOx4 - alert to person, place, time, events No facial droop, no forehead involvement. Motor: No focal weakness - strength 5/5 in bilateral UEs and LEs, proximal and distal, symmetric. Sensory: sensation intact to light touch globally. Gait normal: patient ambulated without ataxia into ED room. PSYCH: euthymic, cooperative, pleasant, appropriate speech Course Vital Signs Vital signs: Vital Signs Temperature 36.6 C 07/29/24 10:37 Pulse 95 H 07/29/24 10:37 Respiratory Rate 20 07/29/24 10:37 Blood Pressure 150/104 H 07/29/24 10:37 Pulse Oximetry 94 07/29/24 10:37 Temperature 36.6 C 07/29/24 10:37 Temperature Source Oral 07/29/24 10:37 Pulse 95 H 07/29/24 10:37 Respiratory Rate 20 07/29/24 10:37 Blood Pressure 150/104 H 07/29/24 10:37 Blood Pressure Position Sitting 07/29/24 10:37 Pulse Oximetry 94 07/29/24 10:37 Oxygen Delivery Method Room Air 07/29/24 10:37 Oxygen Flow Rate 0 07/29/24 10:37 Pain Level 0 07/29/24 10:37 Medical Decision Making This dictation utilizes [id number] dictation software and may contain unedited grammatical errors. 28 year-old male presents to ED today by POV/ambulating with a chief complaint of cough, vomiting x2 today, chills, body aches, feels that his electrolytes may be off with onset this morning. Quality described as generalized malaise, no radiation to respiratory distress, chest pain, abdominal pain, vomiting, diarrhea, shortness of breath. Severity is described as moderate. Palliating factors include ibuprofen this morning with some relief. Provoking factors include nothing specific. Patients' medical history: CKD, primary hyperparathyroidism, electrolyte abnormalities, PTSD, sphincter of Oddi dysfunction. Family and social history: Noncontributory, denies sick contacts. Pertinent exam findings / vital signs include lungs CTA, no respiratory distress, benign posterior oropharynx, benign abdomen. Differential / pathologies of concern include electrolyte abnormality, upper respiratory infection, not respiratory distress, unlikely pneumonia. Diagnostic studies of: -CBC, CMP, magnesium, COVID/flu/RSV PCR, XR chest. -CBC shows no acute abnormality, chronic anemia -CMP shows baseline abnormalities of creatinine and BUN, calcium is elevated at 11.0 -Magnesium within normal limits -COVID/flu/RSV PCR negative -XR chest shows no pneumonia no other findings Interventions of: -Have the patient's stop his Tums calcium supplements for a few days and contact his primary care provider for calcium recheck in 48 to 72 hours. ED Course/Assessment/Plan: 28-year-old otherwise healthy male presents with upper respiratory infection symptoms since this morning, he denies any respiratory distress has no pneumonia on chest x-ray, has chronic calcium issues with his parathyroidism, his calcium is elevated likely taking too much of his supplements, had an hold Tums and resume with permission from PCP with recheck, strict return criteria for any emergent concerns, profound weakness, dizziness or syncope, intractable nausea or vomiting, respiratory distress. Findings not consistent with pneumonia, sepsis, toxic illness, hypoxic respiratory failure. Disposition of hypercalcemia, upper respiratory infection. Patient verbalized understanding of the plan and return to ED criteria and engaged in shared decision making. Medical Records Medical records reviewed: Yes I reviewed the patient's medical records. Imaging Data Radiologic Study: Attestation: I personally reviewed and interpreted this imaging study as follows: Imaging: X-Ray Radiologist's impression: EXAM: XR CHEST 2V PA LATERAL CLINICAL HISTORY: Rhonchi R base. TECHNIQUE: 2D digital imaging was performed. COMPARISON: CR XR CHEST 2V PA LATERAL from 07/16/2024 FINDINGS: 2 views: Heart size is normal. The mediastinum is not widened. Lungs are clear. No infiltrates nor pleural effusions. IMPRESSION: No acute pulmonary findings. Lab Data Lab results reviewed: Yes I reviewed the patient's lab results. Labs: Laboratory Tests Range/Units 07/29/24 07/29/24 10:36 11:11 WBC (4.4-10.8) 10^3/uL 8.92 RBC (4.36-5.78) 10^6/uL 3.76 L Hgb (13.5-17.5) g/dL 10.1 L Hct (40.0-50.0) % 31.8 L MCV (80-95) fL 85 MCH (27.0-33.0) pg 26.9 L MCHC (32.0-36.0) % 31.8 L RDW (11.8-14.1) % 14.9 H Plt Count (130-400) 10^3/uL 317 MPV (8.0-11.0) fL 9.9 Immature Gran % % 0.3 Neutrophils % % 68.3 Lymphocytes % % 21.4 Monocytes % % 7.5 Eosinophils % % 1.9 Basophils % % 0.6 Nucleated RBC % (0.0-0.3) % 0.0 Absolute Neutrophils (1.2-6.7) 10^3/uL 6.09 Absolute Lymphocytes (1.2-3.4) 10^3/uL 1.91 Absolute Monocytes (0.1-0.8) 10^3/uL 0.67 Absolute Eosinophils (0.0-0.7) 10^3/uL 0.17 Absolute Basophils (0.0-0.2) 10^3/uL 0.05 Sodium (136-145) mmol/L 141 Potassium (3.5-5.1) mmol/L 3.8 Chloride (98-107) mmol/L 103 Carbon Dioxide (21.0-32.0) mmol/L 35.2 H Anion Gap (3-11) mmol/L 2.8 L BUN (7-18) mg/dL 31 H Creatinine (0.70-1.30) mg/dL 1.9 H Est GFR (CKD-EPI 2020) (mL/min/1.73m2) 48.07 Glucose (74-106) mg/dL 102 Calcium (8.5-10.1) mg/dL 11.0 H Magnesium (1.8-2.4) mg/dL 2.0 COVID-19 Source Nasopharynx SARS-CoV-2 (PCR) (Negative) Negative Influenza Type A (PCR) (Negative) Negative Influenza Type B (PCR) (Negative) Negative RSV (PCR) (Negative) Negative Quality:SDOH Health Related Social Needs: Health related social needs problems with daily activi ties (Z73.9) PFSH All Active Problems (Updated 07/29/24 @ 11:55 by ANDREW Coleman) Hypercalcemia (Acute) Upper respiratory infection (Acute) Fatty liver (Acute) Constipation (Acute) Left-sided chest pain (Acute) Acute left lumbar radiculopathy (Acute) Patient request for diagnostic testing (Acute) IBS (irritable bowel syndrome) (Chronic) Pain of right calf (Acute) Obesity (Chronic) Migraine with aura (Acute) Insect bite of leg, right (Acute) Testicle lump (Acute) Hamstring tendinitis of left thigh (Acute) Pes anserine bursitis (Acute) Hypernatremia (Acute) Cervical radiculopathy (Acute) Left-sided Flower's palsy (Acute) Constipation (Acute) Grief reaction (Chronic) Opiate dependence, continuous (Acute) 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 Possible 2' Methadone, Clnzpm (?). Surg eval (+)/No further action. History of electrolyte imbalance (Acute) Neck pain on left side (Acute) with shoulder, upper back pain.. torticollis, radiating into left hip/leg Pulmonary nodule 1 cm or greater in diameter (Chronic) Therapeutic opioid induced constipation (Acute) Sphincter of Oddi dysfunction (Chronic) Abnormal CT scan, kidney (Acute) Intrahepatic bile duct dilation (Acute) Common bile duct dilatation (Chronic) Has been dilated for quite some time, now more-so. Normal LFTs. Known gallstones. Iatrogenic hypocalcemia (Acute) Multiple endocrine neoplasia type I (Chronic) Depression (Chronic) Hypocalcemia (Chronic) Elevated parathyroid hormone (Acute) Family history of coronary arteriosclerosis (Chronic) Father of IA at 50, mother had IA at 42 Severe anxiety with panic (Chronic) Medical History Urinary tract infection CKD (chronic kidney disease) stage 2, GFR 60-89 ml/min GFR 64-65, with Hx FLORESITA and GFR < 45 Primary hyperparathyroidism Complex medical condition Serious electrolyte imbalances, with gynecomastia, possible MEN Dx, CKD and anemia with baseline anxiety and Hx PTSD. Hypocalcemia Anxiety Depression Hyperlipidemia Family history of multiple endocrine neoplasia, type 1 PTSD (post-traumatic stress disorder) Per pt. states no triggers at this time. Surgical History History of laparoscopic cholecystectomy (~11/2023) H/O parathyroidectomy Family History Mother Anxiety Asthma Depression Sister Anxiety Depression Father Cancer lung & stomach Depression Diabetes Hypertension MEN 1 (multiple endocrine neoplasia) Social History Smoking/Tobacco Use Status: Never Smoking risk assessment performed?: Yes Alcohol Intake: current Alcohol Intake frequency: holidays/special occasions only Alcohol type: beer Drug use: Current Sobriety Substance use type: former substance user, crack/cocaine, heroin and painkillers Details: stopped using substances for the passed 4 years Adopted: No Caregiver/Support person: No Foster care: No Household members: none Housing: apartment Number of Children: 0 Communication Needs: None Education Level: high school Do you need help understanding health information?: Never current occupation: [employer] Pets and animals: Yes (Ally) Pets and animals: dog(s) Sexually active: No Do you think of yourself as: straight/heterosexual Current gender identity: male What is your relationship status?: How often do you talk on the phone with friends or family?: twice per week How often do you get together with friends or relatives?: never Do you belong to any clubs or organized social groups?: no Panel score (0-1 are the most socially isolated patients): 0 What type of physical activity do you participate in: walking Duration: 15-30 minutes/day Frequency: 5-6 times per week Maryam/Muslim: Uatsdin Special maryam needs: No Seatbelt use: always Helmet use: Yes Helmet use: always Drive intox or ride w/intox driver operator: No Do you feel safe at home: Yes Do you feel safe in your relationship?: Yes
[2024-07-29 11:16] VITALS: RESP 16
[2024-07-29 11:19] LABS: Abs Immature Grans 0.03 10^3/uL (0.0-0.06); Absolute Basophil Count 0.05 10^3/uL (0.0-0.2); Absolute Eosinophil Count 0.17 10^3/uL (0.0-0.7); Absolute Lymphocyte Count 1.91 10^3/uL (1.2-3.4); Absolute Monocyte Count 0.67 10^3/uL (0.1-0.8); Absolute Neutrophil Count 6.09 10^3/uL (1.2-6.7); Basophils % 0.6 %; Eosinophils % 1.9 %; HCT 31.8 % (40.0-50.0); HGB 10.1 g/dL (13.5-17.5); Immature Grans % 0.3 %; Lymphocytes % 21.4 %; MCH 26.9 pg (27.0-33.0); MCHC 31.8 % (32.0-36.0); MCV 85 fL (80-95); MPV 9.9 fL (8.0-11.0); Monocytes % 7.5 %; Neutrophils % 68.3 %; Platelet Count 317 10^3/uL (130-400); RBC 3.76 10^6/uL (4.36-5.78); RDW 14.9 % (11.8-14.1); RDW-SD 44.4 fL; WBC 8.92 10^3/uL (4.4-10.8)
[2024-07-29 11:33] LABS: Anion Gap 2.8 mmol/L (3-11); BUN 31 mg/dL (7-18); CO2 35.2 mmol/L (21.0-32.0); CREATININE 1.9 mg/dL (0.70-1.30); Chloride 103 mmol/L (98-107); Estimated GFR 48.07 (mL/min/1.73m2); Glucose 102 mg/dL (74-106); Potassium 3.8 mmol/L (3.5-5.1); Sodium 141 mmol/L (136-145)
[2024-07-29 11:35] LABS: COVID-19 PCR Negative (Negative); Influenza A PCR Negative (Negative); Influenza B PCR Negative (Negative); RSV PCR Negative (Negative)
[2024-07-29 11:43] LABS: Source Nasopharynx
[2024-07-29 12:11] VITALS: BP 143/84; PULSE 87; RESP 16; TEMP 37.1; O2SAT 98; O2SAT 99
== END 2024-07-29 12:14 | disposition home or self-care (01) ==
PROVIDERS: Emergency Provider Physician Assistant; PCP Family Medicine
DX: N18.2 Chronic kidney disease, stage 2 (mild); E78.5 Hyperlipidemia, unspecified; E89.2 Postprocedural hypoparathyroidism; J06.9 Acute upper respiratory infection, unspecified; E83.52 Hypercalcemia
CPT/HCPCS: 36415; 80048; 87637; 99284; 71046; 83735; 85025

== ENCOUNTER 2024-08-04 13:41 | Outpatient (CLI) | payer MEDICAID, SELFPAY ==
[2024-08-04 14:51] LABS: ALT 39 U/L (16-63); AST 29 U/L (15-37); Albumin 3.2 g/dL (3.4-5.0); Alkaline Phosphatase 138 U/L (46-116); Anion Gap 6.5 mmol/L (3-11); BUN 19 mg/dL (7-18); Bilirubin, Total 0.24 mg/dL (0.2-1.0); CO2 30.5 mmol/L (21.0-32.0); CREATININE 1.6 mg/dL (0.70-1.30); Calcium 8.4 mg/dL (8.5-10.1); Chloride 103 mmol/L (98-107); Estimated GFR 59.08 (mL/min/1.73m2); Glucose 112 mg/dL (74-106); Potassium 3.7 mmol/L (3.5-5.1); Sodium 140 mmol/L (136-145); Total Protein 7.5 g/dL (6.4-8.2)
[2024-08-05 19:08] LABS: Gastrin 66 pg/mL
== END 2024-08-04 13:42 | disposition home or self-care (01) ==
LOC: LBO 13:43
PROVIDERS: Surgery; PCP Family Medicine; Visit Provider Family Medicine
DX: E83.51 Hypocalcemia (principal); K29.70 Gastritis, unspecified, without bleeding
CPT/HCPCS: 36415; 80053; 82941

== ENCOUNTER 2024-08-05 16:07 | Emergency (ER) | payer MEDICAID, SELFPAY ==
[2024-08-05 16:11] VITALS: BP 122/81; PULSE 106; RESP 16; TEMP 37.1; O2SAT 96
--- NOTE | 2024-08-05 16:30 | DI.CT_ITS ---
Exam(s) CT ABDOMEN PELVIS WO/W EXAM: CT ABDOMEN PELVIS WO/W CLINICAL HISTORY: renal colic wo > CT w/ RUQ tender. TECHNIQUE: Imaging Protocol: Axial computed tomography images with coronal and sagittal reformatted images were created and reviewed CONTRAST MATERIAL: Intravenous: Omnipaque-350 100cc Oral: None COMPARISON: No exams were available for comparison FINDINGS: VISUALIZED LUNG BASES: No nodules nor pleural effusions evident. ABDOMEN: There is no ascites. LIVER: There are no focal hepatic lesions evident. GALLBLADDER/BILIARY: The gallbladder is again noted be surgically absent. CBD diameter is slightly p rominent for this age group, measuring approximately 9 mm. PANCREAS: No evidence of pancreatic mass nor dilatation of the pancreatic duct. SPLEEN: Spleen is not enlarged. No obvious intrasplenic lesions. Single small 2 mm calcified granul omas noted in the lateral aspect of the spleen. Splenic and portal veins are patent. ADRENALS: There are no significant adrenal masses. KIDNEYS:Right kidney unremarkable. There is a 1.8 x 1.8 cm hypodensity in the superior pole the righ t kidney again noted and another similar but smaller 1.3 x 1.3 cm cyst finding in the lateral cortex and another similar 1 cm finding in the inferior pole the left kidney, unchanged from previous. Thes e appear too dense to be simple cysts. May represent hemorrhagic cysts or abscesses but cannot exclu de neoplasm. There are no renal calculi nor hydronephrosis nor hydroureter. There are no radiopaque calculi in the nondistended urinary bladder. Bladder wall exhibits mild uniform thickening without intraluminal calculi nor lesions nor prostate enlargement.. ABDOMINAL AORTA: Abdominal aorta is not enlarged. LYMPH NODES:There is no retroperitoneal nor paraaortic adenopathy. ABDOMINAL WALL: There is a fat only containing right inguinal hernia. GI: There is no evidence of bowel obstruction, free air, nor abscess. PELVIS: GI: No evidence of appendicitis.Sigmoid is redundant. However, there is no evidence of sigmoid diver ticular disease.No colitis pattern LYMPH NODES: Again noted are multiple small sub cm lymph nodes in right side pelvic mesentery. REPRODUCTIVE: Prostate is not enlarged. Seminal vesicles unremarkable. URINARY BLADDER: Mild uniform thickening of the urinary bladder wall which may be upper normal and ap pears unchanged from previous. The pelvic ureters are not dilated. There are no calculi in the uret ers nor within the urinary bladder. OSSEOUS: No fractures and no significant osseous lesions. Sacroiliac joints appear unremarkable. No disc space narrowing. IMPRESSION: 1. Compared to prior CT scan of 04/07/2024 the gallbladder is again noted be surgically absent. CBD diameter is slightly prominent measuring 8-9 mm. There are no calculi seen in the CBD nor evidence o f obvious mass in this region. 2. There is a right inguinal hernia which contains fat but no bowel loops. Also no fluid within the hernia sac. 3. No evidence of urinary tract calculi nor hydronephrosis. 4. There are 3 hypodensities in the left kidney noted measuring up to 1.8 cm, all appearing too dense to be simple cysts and either represent hemorrhagic cysts or possible abscesses; less likely neoplas ms in this age group. Similar findings are not seen in the opposite-right kidney. 5. No evidence of acute appendicitis. However again noted are multiple minimally prominent lymph no fidelina in the right mesentery measuring less than 1 cm. These were also evident on the prior CT scan . Discussed by phone with ER provider 08/05/2024 at 6:25 p.m. RADIATION DOSE DELIVERED: 3,144.74mGy.cm Total DLP DATA REPOSITORY: All CT scans at this facility are submitted to the National Radiology Data Registry (NRDR) Dose Index Registry (DIR) with the [employer] (ACR). RADIATION OPTIMIZATION: All CT scans at this facility use at least one of these dose optimization te chniques: automated exposure control; mA and/or kV adjustment per patient size (includes targeted exa ms where dose is matched to clinical indication); or iterative reconstruction.
[2024-08-05 16:37] LABS: Bilirubin Negative (Negative); Blood Negative (Negative); Clarity Clear (Clear); Glucose Negative (Negative); Ketones Negative (Negative); Leukocyte Esterase Negative (Negative); Nitrite Negative (Negative); Urobilinogen 0.2 mg/dL (Up to 0.2)
--- NOTE | 2024-08-05 16:37 | W.ED.GENAD ---
Discharge Plan Disposition Patient Disposition: Home Condition: Stable Discharge Details Clinical Impression: Gastritis Primary Care Provider: Brendon Vivar ED Provider: Richy Oakes Home Meds and New Rx's Prescriptions: Continued cyclobenzaprine 10 mg tablet 10 mg PO TID PRN (Reason: muscle spasm) Qty: 30 3RF gabapentin 300 mg capsule 300 mg PO BID Qty: 180 3RF clonazepam 1 mg tablet 1 mg PO BID Qty: 55 0RF Zepbound 2.5 mg/0.5 mL pen injector 2.5 mg subcut QWEEK Qty: 2 0RF Rx Instructions: for 4 weeks omeprazole 40 mg capsule,delayed release(DR/EC) 40 mg PO DAILY Qty: 90 3RF methadone 10 mg/5 mL solution 100 mg PO QAM simethicone 125 mg tablet,chewable 125 mg PO QID PRN (Reason: abdominal distention) Qty: 20 3RF calcitriol 0.5 mcg capsule 1 mcg PO .COMPLEX Qty: 270 3RF Rx Instructions: 1 mcg orally t2 tabs qam and 1 tab QHS; calcium carbonate [Tums] 200 mg calcium (500 mg) tablet,chewable 2,000 mg PO BID prochlorperazine maleate 5 mg tablet 5 mg PO TID PRN (Reason: acute nausea) Qty: 30 0RF benzonatate 200 mg capsule 200 mg PO TID PRN Patient Comments: TAKE ONE CAPSULE BY MOUTH EVERY 8 HOURS NEEDED FOR COUGH magnesium gluconate 27 mg magnesium (500 mg) tablet 13.5 mg PO TID Qty: 60 3RF promethazine 6.25 mg/5 mL syrup 12.5 mg PO Q6H PRN (Reason: cough) Qty: 120 0RF prednisone 20 mg tablet 40 mg PO ONCE Qty: 10 0RF polyethylene glycol 3350 17 gram powder in packet 17 g PO BID Qty: 100 1RF Discharge Instructions Instructions: Gastritis ED Additional Instructions: You were seen in the emergency department for your right upper quadrant abdominal pain that came on about 30 minutes after eating, this is suspicious for gastritis, you are on omeprazole, continue taking this medication. The CT of your abdomen shows stable chronic findings, you may need a routine ultrasound of your kidneys due to possible left renal cysts, you had mildly low magnesium and mildly low potassium, please take [id number] supplements for this and follow-up with your primary care provider. There is no evidence of any surgical abdominal pathology on your CT scan and your labs show no evidence of severe infection, please stay well-hydrated and have good nutritional intake. Please return for any severe acute worsening of your abdominal pain especially with fever, please follow-up with Dr. Vivar for a referral for upper endoscopy for possible gastritis. Referrals: Brendon Vivar DO [Primary Care Provider] - HPI General Date/Time Provider Initiated Documentation: 08/05/24 16:16. HPI Narrative: 28 year-old male presents to ED today by POV/ambulating with a chief complaint of RUQ tenderness, worse 30 minutes after eating with onset today. Quality described as pain where his gall bladder used to be, no radiation to nausea/vomiting, recent diarrhea, black/bloody stools, chest pain, shortness of breath, cough, other abdominal pain. Severity is described as severe. Palliating factors include nothing specific attempted. Provoking factors include nothing specific. Events leading up to the incident/Associated Symptoms: Patient has complex abdominal history. Patient not anticoagulated. Related Data Home Medications ?Medication ?Instructions ?Recorded ?Confirmed calcium carbonate (Tums) 2,000 mg PO BID 02/02/23 08/05/24 methadone 10 mg/5 mL oral solution 100 mg PO QAM 06/12/23 08/05/24 prochlorperazine maleate 5 mg 5 mg PO TID PRN acute nausea #30 09/06/23 08/05/24 tablet tabs magnesium gluconate 27 mg 13.5 mg (1/2 x 27 mg magnesium 11/21/23 08/05/24 magnesium (500 mg) tablet (500 mg)) PO TID #60 tabs simethicone 125 mg chewable tablet 125 mg PO QID PRN abdominal 03/12/24 08/05/24 distention #20 tabs promethazine 6.25 mg/5 mL oral 12.5 mg (10 mL) PO Q6H PRN cough 05/15/24 08/05/24 syrup #120 mL cyclobenzaprine 10 mg tablet 10 mg PO TID PRN muscle spasm #30 06/01/24 08/05/24 tabs gabapentin 300 mg capsule 300 mg PO BID #180 caps 06/01/24 08/05/24 calcitriol 0.5 mcg capsule 1 mcg (2 x 0.5 mcg) PO .COMPLEX 06/29/24 08/05/24 #270 caps prednisone 20 mg tablet 40 mg (2 x 20 mg) PO ONCE #10 tabs 07/14/24 08/05/24 benzonatate 200 mg capsule 200 mg PO TID PRN 07/16/24 08/05/24 polyethylene glycol 3350 17 gram 17 g PO BID #100 ea 07/22/24 08/05/24 oral powder packet clonazepam 1 mg tablet 1 mg PO BID #55 tabs 07/27/24 08/05/24 omeprazole 40 mg capsule,delayed 40 mg PO DAILY #90 caps 07/27/24 08/05/24 release tirzepatide (weight loss) 2.5 2.5 mg (0.5 mL) subcut QWEEK #2 mL 07/27/24 08/05/24 mg/0.5 mL subcutaneous pen injector (Zepbound) Previous Rx's ?Medication ?Instructions ?Recorded prochlorperazine maleate 5 mg 5 mg PO TID PRN acute nausea #30 09/06/23 tablet tabs magnesium gluconate 27 mg 13.5 mg (1/2 x 27 mg magnesium 11/21/23 magnesium (500 mg) tablet (500 mg)) PO TID #60 tabs simethicone 125 mg chewable tablet 125 mg PO QID PRN abdominal 03/12/24 distention #20 tabs promethazine 6.25 mg/5 mL oral 12.5 mg (10 mL) PO Q6H PRN cough 05/15/24 syrup #120 mL cyclobenzaprine 10 mg tablet 10 mg PO TID PRN muscle spasm #30 06/01/24 tabs gabapentin 300 mg capsule 300 mg PO BID #180 caps 06/01/24 calcitriol 0.5 mcg capsule 1 mcg (2 x 0.5 mcg) PO .COMPLEX 06/29/24 #270 caps prednisone 20 mg tablet 40 mg (2 x 20 mg) PO ONCE #10 tabs 07/14/24 polyethylene glycol 3350 17 gram 17 g PO BID #100 ea 07/22/24 oral powder packet clonazepam 1 mg tablet 1 mg PO BID #55 tabs 07/27/24 omeprazole 40 mg capsule,delayed 40 mg PO DAILY #90 caps 07/27/24 release tirzepatide (weight loss) 2.5 2.5 mg (0.5 mL) subcut QWEEK #2 mL 07/27/24 mg/0.5 mL subcutaneous pen injector (Zepbound) Allergies Allergy/AdvReac Type Severity Reaction Status Date / Time codeine Allergy Intermediate pass out Verified 08/05/24 16:14 Penicillins Allergy Skin Rash Verified 08/05/24 16:14 marijuana (cannabis) AdvReac Severe Paranoia Verified 08/05/24 16:14 amoxicillin AdvReac Intermediate Nausea Verified 08/05/24 16:14 dextromethorphan (From AdvReac Intermediate got Verified 08/05/24 16:14 NyQuil) really hot and sweaty doxylamine (From NyQuil) AdvReac Intermediate got Verified 08/05/24 16:14 really hot and sweaty pseudoephedrine (From NyQuil) AdvReac Intermediate got Verified 08/05/24 16:14 really hot and sweaty General Stated Complaint: Abd Prob ADRIANA: 3 Review of Systems All systems reviewed & are unremarkable except as noted in HPI and below Exam Narrative Exam Narrative: GENERAL APPEARANCE: Well-nourished, non-toxic, awake and alert, atraumatic, no acute distress. SKIN: Warm, pink, dry, intact, without rashes/lesions/ulcerations. HEAD: Normocephalic, atraumatic, normal hair distribution for gender/age. EYES: Normal conjunctiva, no exudates on lids/lashes. ENT: Nares patent, no circumoral cyanosis, no facial swelling NECK: Supple, trachea midline, painless cervical ROM. LUNGS/CHEST: Lungs CTA bilaterally- no rhonchi/rales/whezes diffusely, non-labored respirations, normal A/P diameter, symmetrical expansion, no chest wall deformity HEART (CV/PV): Regular rate and rhythm without murmur, no peripheral edema, no JVD. ABDOMEN: Soft, non-distended, no guarding, right upper quadrant tenderness with questionable Cedillo sign, no CVA tenderness to percussion bilaterally, no Rovsing's MSK: Normal ROM, no swelling/deformity to bilateral UEs or LEs, moving all extremities without weakness, no cyanosis, spine midline without tenderness, normal curvature. NEURO: Mental Status AAOx4 - alert to person, place, time, events No facial droop, no forehead involvement. Motor: No focal weakness - strength 5/5 in bilateral UEs and LEs, proximal and distal, symmetric. Sensory: sensation intact to light touch globally. Gait normal: patient ambulated without ataxia into ED room. PSYCH: euthymic, cooperative, pleasant, appropriate speech Course Vital Signs Vital signs: Vital Signs Temperature 37.1 C 08/05/24 16:11 Pulse 106 H 08/05/24 16:11 Respiratory Rate 16 08/05/24 16:11 Blood Pressure 122/81 08/05/24 16:11 Pulse Oximetry 96 08/05/24 16:11 Temperature 37.1 C 08/05/24 16:11 Pulse 106 H 08/05/24 16:11 Respiratory Rate 16 08/05/24 16:11 Blood Pressure 122/81 08/05/24 16:11 Blood Pressure Position Sitting 08/05/24 16:11 Pulse Oximetry 96 08/05/24 16:11 Oxygen Delivery Method Room Air 08/05/24 16:11 Oxygen Flow Rate 0 08/05/24 16:11 Pain Level 5 08/05/24 16:11 Medical Decision Making This dictation utilizes [id number] dictation software and may contain unedited grammatical errors. 28 year-old male presents to ED today by POV/ambulating with a chief complaint of RUQ tenderness, worse 30 minutes after eating with onset today. Quality described as pain where his gall bladder used to be, no radiation to nausea/vomiting, recent diarrhea, black/bloody stools, chest pain, shortness of breath, cough, other abdominal pain. Severity is described as severe. Palliating factors include nothing specific attempted. Provoking factors include nothing specific. Events leading up to the incident/Associated Symptoms: Patient has complex abdominal history. Patients' medical history: Status post cholecystectomy, sphincter of Oddi dysfunction, primary hyperparathyroidism, chronic kidney disease, anxiety, healthcare anxiety, fatty liver, irritable bowel syndrome, denies kidney stone history. Family and social history: Noncontributory. Pertinent exam findings / vital signs include right upper quadrant tenderness with positive Cedillo sign, no CVA tenderness to percussion bilaterally, no Rovsing's, benign cardiopulmonary exam. Differential / pathologies of concern include sphincter of Oddi dysfunction, chronic abdominal pain, gastritis, SBO, renal colic. Diagnostic studies of: -CBC, CMP, lactate, magnesium, lipase, UA, CT abdomen/pelvis without and with contrast. -CBC shows no acute findings, chronic anemia -Lactate negative do not suspect sepsis -CMP shows mild hypokalemia 3.3, chronic elevated creatinine 1.6 which is his baseline -Magnesium mildly low 1.6 will replete IV -Lipase negative -UA benign -CT shows no right-sided abnormalities, he has a right inguinal hernia that is well away from his area of pain, there are 3 hypodensities in left kidney which I recommend he pursue outpatient ultrasound Interventions of: -Patient began receiving 2 g IV magnesium and p.o. 40 mill equivalent potassium stated he needed to leave due to emergency, he has access to many electrolyte supplements in the outpatient setting was discharged home, recommend he follow-up with a PCP referral to general surgery practice for upper endoscopy. ED Course/Assessment/Plan: 28-year-old male is well-known to the ED presents with right upper quadrant tenderness, he has no findings on CT without and with send his laboratory workup is quite benign save for some minor electrolyte abnormalities which he is perfectly capable of replating p.o. at home, he has close follow-up with his PCP, his pattern of onset of pain 30 minutes after eating is consistent with a likely gastritis, there is no emergent findings on CT to suggest admission, the patient stated he needed to leave for an emergency of a personal reason retirement through his electrolyte repletion which is reasonable I stressed that he seek PCP referral to general surgery for upper endoscopy. Findings not consistent with biliary abnormality, renal colic, SBO, acute emergent abdominal pathology, critical electrolyte abnormality. Disposition of gastritis. Patient verbalized understanding of the plan and return to ED criteria and engaged in shared decision making. Medical Records Medical records reviewed: Yes I reviewed the patient's medical records. Imaging Data Radiologic Study: Attestation: I personally reviewed and interpreted this imaging study as follows: Imaging: CT Scan Radiologist's impression: EXAM: CT ABDOMEN PELVIS WO/W CLINICAL HISTORY: renal colic wo > CT w/ RUQ tender. TECHNIQUE: Imaging Protocol: Axial computed tomography images with coronal and sagittal reformatted images were created and reviewed CONTRAST MATERIAL: Intravenous: Omnipaque-350 100cc Oral: None COMPARISON: No exams were available for comparison FINDINGS: VISUALIZED LUNG BASES: No nodules nor pleural effusions evident. ABDOMEN: There is no ascites. LIVER: There are no focal hepatic lesions evident. GALLBLADDER/BILIARY: The gallbladder is again noted be surgically absent. CBD diameter is slightly prominent for this age group, measuring approximately 9 mm. PANCREAS: No evidence of pancreatic mass nor dilatation of the pancreatic duct. SPLEEN: Spleen is not enlarged. No obvious intrasplenic lesions. Single small 2 mm calcified granulomas noted in the lateral aspect of the spleen. Splenic and portal veins are patent. ADRENALS: There are no significant adrenal masses. KIDNEYS:Right kidney unremarkable. There is a 1.8 x 1.8 cm hypodensity in the superior pole the right kidney again noted and another similar but smaller 1.3 x 1.3 cm cyst finding in the lateral cortex and another similar 1 cm finding in the inferior pole the left kidney, unchanged from previous. These appear too dense to be simple cysts. May represent hemorrhagic cysts or abscesses but cannot exclude neoplasm. There are no renal calculi nor hydronephrosis nor hydroureter. There are no radiopaque calculi in the nondistended urinary bladder. Bladder wall exhibits mild uniform thickening without intraluminal calculi nor lesions nor prostate enlargement.. ABDOMINAL AORTA: Abdominal aorta is not enlarged. LYMPH NODES:There is no retroperitoneal nor paraaortic adenopathy. ABDOMINAL WALL: There is a fat only containing right inguinal hernia. GI: There is no evidence of bowel obstruction, free air, nor abscess. PELVIS: GI: No evidence of appendicitis.Sigmoid is redundant. However, there is no evidence of sigmoid diverticular disease.No colitis pattern LYMPH NODES: Again noted are multiple small sub cm lymph nodes in right side pelvic mesentery. REPRODUCTIVE: Prostate is not enlarged. Seminal vesicles unremarkable. URINARY BLADDER: Mild uniform thickening of the urinary bladder wall which may be upper normal and appears unchanged from previous. The pelvic ureters are not dilated. There are no calculi in the ureters nor within the urinary bladder. OSSEOUS: No fractures and no significant osseous lesions. Sacroiliac joints appear unremarkable. No disc space narrowing. IMPRESSION: 1. Compared to prior CT scan of 04/07/2024 the gallbladder is again noted be surgically absent. CBD diameter is slightly prominent measuring 8-9 mm. There are no calculi seen in the CBD nor evidence of obvious mass in this region. 2. There is a right inguinal hernia which contains fat but no bowel loops. Also no fluid within the hernia sac. 3. No evidence of urinary tract calculi nor hydronephrosis. 4. There are 3 hypodensities in the left kidney noted measuring up to 1.8 cm, all appearing too dense to be simple cysts and either represent hemorrhagic cysts or possible abscesses; less likely neoplasms in this age group. Similar findings are not seen in the opposite-right kidney. 5. No evidence of acute appendicitis. However again noted are multiple minimally prominent lymph nodes in the right mesentery measuring less than 1 cm. These were also evident on the prior CT scan 04/07/2024. Lab Data Lab results reviewed: Yes I reviewed the patient's lab results. Labs: Laboratory Tests Range/Units 08/05/24 08/05/24 16:16 16:55 WBC (4.4-10.8) 10^3/uL 8.58 RBC (4.36-5.78) 10^6/uL 3.79 L Hgb (13.5-17.5) g/dL 10.2 L Hct (40.0-50.0) % 31.9 L MCV (80-95) fL 84 MCH (27.0-33.0) pg 26.9 L MCHC (32.0-36.0) % 32.0 RDW (11.8-14.1) % 15.3 H Plt Count (130-400) 10^3/uL 349 MPV (8.0-11.0) fL 9.8 Immature Gran % % 0.5 Neutrophils % % 63.6 Lymphocytes % % 25.1 Monocytes % % 8.5 Eosinophils % % 2.0 Basophils % % 0.3 Nucleated RBC % (0.0-0.3) % 0.0 Absolute Neutrophils (1.2-6.7) 10^3/uL 5.46 Absolute Lymphocytes (1.2-3.4) 10^3/uL 2.15 Absolute Monocytes (0.1-0.8) 10^3/uL 0.73 Absolute Eosinophils (0.0-0.7) 10^3/uL 0.17 Absolute Basophils (0.0-0.2) 10^3/uL 0.03 VBG Lactate (<or=2.0) mmol/L 1.0 Sodium (136-145) mmol/L 140 Potassium (3.5-5.1) mmol/L 3.3 L Chloride (98-107) mmol/L 104 Carbon Dioxide (21.0-32.0) mmol/L 32.4 H Anion Gap (3-11) mmol/L 3.6 BUN (7-18) mg/dL 12 Creatinine (0.70-1.30) mg/dL 1.6 H Est GFR (CKD-EPI 2020) (mL/min/1.73m2) 59.08 Glucose (74-106) mg/dL 83 Calcium (8.5-10.1) mg/dL 8.7 Magnesium (1.8-2.4) mg/dL 1.6 L Total Bilirubin (0.2-1.0) mg/dL 0.15 L AST (15-37) U/L 32 ALT (16-63) U/L 46 Alkaline Phosphatase (46-116) U/L 137 H Total Protein (6.4-8.2) g/dL 7.4 Albumin (3.4-5.0) g/dL 3.2 L Lipase (<78) U/L 23 Urine Color (Yellow) Yellow Urine Clarity (Clear) Clear Urine pH (5-8) 6.0 Ur Specific [place] (1.005-1.025) 1.010 Urine Protein (Neg-Trace) mg/dL Negative Urine Ketones (Negative) mg/dL Negative Urine Blood (Negative) Negative Urine Nitrite (Negative) Negative Urine Bilirubin (Negative) Negative Urine Urobilinogen (Up to 0.2) mg/dL 0.2 Ur Leukocyte Esterase (Negative) Negative Urine Glucose (Negative) mg/dL Negative Quality:SDOH Health Related Social Needs: Health related social needs problems with daily activities (Z73.9) PFSH All Active Problems (Updated 08/05/24 @ 18:50 by ANDREW Coleman) Gastritis (Acute) Hypercalcemia (Acute) Upper respiratory infection (Acute) Fatty liver (Acute) Constipation (Acute) Left-sided chest pain (Acute) Acute left lumbar radiculopathy (Acute) IBS (irritable bowel syndrome) (Chronic) Pain of right calf (Acute) Obesity (Chronic) Migraine with aura (Acute) Insect bite of leg, right (Acute) Testicle lump (Acute) Hamstring tendinitis of left thigh (Acute) Pes anserine bursitis (Acute) Hypernatremia (Acute) Cervical radiculopathy (Acute) Left-sided Flower's palsy (Acute) Constipation (Acute) Grief reaction (Chronic) Opiate dependence, continuous (Acute) 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 Possible 2' Methadone, Clnzpm (?). Surg eval (+)/No further action. History of electrolyte imbalance (Acute) Neck pain on left side (Acute) with shoulder, upper back pain.. torticollis, radiating into left hip/leg Pulmonary nodule 1 cm or greater in diameter (Chronic) Therapeutic opioid induced constipation (Acute) Sphincter of Oddi dysfunction (Chronic) Abnormal CT scan, kidney (Acute) Intrahepatic bile duct dilation (Acute) Common bile duct dilatation (Chronic) Has been dilated for quite some time, now more-so. Normal LFTs. Known gallstones. Iatrogenic hypocalcemia (Acute) Multiple endocrine neoplasia type I (Chronic) Depression (Chronic) Hypocalcemia (Chronic) Elevated parathyroid hormone (Acute) Family history of coronary arteriosclerosis (Chronic) Father of HI at 50, mother had HI at 42 Severe anxiety with panic (Chronic) Medical History Urinary tract infection CKD (chronic kidney disease) stage 2, GFR 60-89 ml/min GFR 64-65, with Hx FLORESITA and GFR < 45 Primary hyperparathyroidism Complex medical condition Serious electrolyte imbalances, with gynecomastia, possible MEN Dx, CKD and anemia with baseline anxiety and Hx PTSD. Hypocalcemia Anxiety Depression Hyperlipidemia Family history of multiple endocrine neoplasia, type 1 PTSD (post-traumatic stress disorder) Per pt. states no triggers at this time. Surgical History History of laparoscopic cholecystectomy (~11/2023) H/O parathyroidectomy Family History Mother Anxiety Asthma Depression Sister Anxiety Depression Father Cancer lung & stomach Depression Diabetes Hypertension MEN 1 (multiple endocrine neoplasia) Social History Smoking/Tobacco Use Status: Never Smoking risk assessment performed?: Yes Alcohol Intake: current Alcohol Intake frequency: holidays/special occasions only Alcohol type: beer Drug use: Current Sobriety Substance use type: former substance user, crack/cocaine, heroin and painkillers Details: stopped using substances for the passed 4 years Adopted: No Caregiver/Support person: No Foster care: No Household members: none Housing: apartment Number of Children: 0 Communication Needs: None Education Level: high school Do you need help understanding health information?: Never current occupation: [employer] Pets and animals: Yes (Ally) Pets and animals: dog(s) Sexually active: No Do you think of yourself as: straight/heterosexual Current gender identity: male What is your relationship status?: How often do you talk on the phone with friends or family?: twice per week How often do you get together with friends or relatives?: never Do you belong to any clubs or organized social groups?: no Panel score (0-1 are the most socially isolated patients): 0 What type of physical activity do you participate in: walking Duration: 15-30 minutes/day Frequency: 5-6 times per week Maryam/Oriental Orthodox: Religious Special maryam needs: No Seatbelt use: always Helmet use: Yes Helmet use: always Drive intox or ride w/intox hi lo driver: No Do you feel safe at home: Yes Do you feel safe in your relationship?: Yes
[2024-08-05 17:03] LABS: Abs Immature Grans 0.04 10^3/uL (0.0-0.06); Absolute Basophil Count 0.03 10^3/uL (0.0-0.2); Absolute Eosinophil Count 0.17 10^3/uL (0.0-0.7); Absolute Lymphocyte Count 2.15 10^3/uL (1.2-3.4); Absolute Monocyte Count 0.73 10^3/uL (0.1-0.8); Absolute Neutrophil Count 5.46 10^3/uL (1.2-6.7); Basophils % 0.3 %; HCT 31.9 % (40.0-50.0); HGB 10.2 g/dL (13.5-17.5); Immature Grans % 0.5 %; Lymphocytes % 25.1 %; MCH 26.9 pg (27.0-33.0); MCV 84 fL (80-95); MPV 9.8 fL (8.0-11.0); Monocytes % 8.5 %; Neutrophils % 63.6 %; Platelet Count 349 10^3/uL (130-400); RBC 3.79 10^6/uL (4.36-5.78); RDW 15.3 % (11.8-14.1); RDW-SD 45.6 fL; WBC 8.58 10^3/uL (4.4-10.8)
[2024-08-05] MEDS: Ketorolac 15 MG/ML VIAL IVP (17:07)
[2024-08-05] MEDS: ACETAMINOPHEN 1,000 MG/100 ML BAG 400 MG IVPB (17:07)
[2024-08-05 17:27] LABS: ALT 46 U/L (16-63); AST 32 U/L (15-37); Albumin 3.2 g/dL (3.4-5.0); Alkaline Phosphatase 137 U/L (46-116); Anion Gap 3.6 mmol/L (3-11); BUN 12 mg/dL (7-18); Bilirubin, Total 0.15 mg/dL (0.2-1.0); CO2 32.4 mmol/L (21.0-32.0); CREATININE 1.6 mg/dL (0.70-1.30); Calcium 8.7 mg/dL (8.5-10.1); Chloride 104 mmol/L (98-107); Estimated GFR 59.08 (mL/min/1.73m2); Glucose 83 mg/dL (74-106); Lipase 23 U/L (<78); Magnesium 1.6 mg/dL (1.8-2.4); Potassium 3.3 mmol/L (3.5-5.1); Sodium 140 mmol/L (136-145); Total Protein 7.4 g/dL (6.4-8.2)
[2024-08-05] MEDS: Normal Saline - Diluent 50 ML VIAL IJ (17:39)
[2024-08-05] MEDS: Omnipaque 350 MG/ML 500 ML BTL-Imaging package 100 ML IJ (17:40)
[2024-08-05] MEDS: MAGNESIUM SULFATE 2 GM/50 ML BAG IV_INF (18:08)
[2024-08-05] MEDS: Potassium Chloride 20 MEQ TABCR 40 MEQ PO (18:42)
[2024-08-05 18:55] VITALS: BP 122/81; PULSE 106; RESP 16; TEMP 37.1; O2SAT 96
== END 2024-08-05 18:55 | disposition home or self-care (01) ==
PROVIDERS: Emergency Provider Physician Assistant; PCP Family Medicine
DX: K29.70 Gastritis, unspecified, without bleeding (principal); N18.2 Chronic kidney disease, stage 2 (mild); E83.42 Hypomagnesemia; E87.6 Hypokalemia; E89.2 Postprocedural hypoparathyroidism; Z90.49 Acquired absence of other specified parts of digestive tract
CPT/HCPCS: 80053; 83690; 96365; 96367; 96375; 99285; 74178; 81003; 83605; 83735; 85025; J0131; J1885; J3475

== ENCOUNTER 2024-08-09 12:31 | Emergency (ER) | payer OTHER, SELFPAY | END 2024-08-09 12:48 | disposition left against medical advice (07) | LOC: ER 12:42 | PROVIDERS: PCP Family Medicine | DX: Z53.21 Procedure and treatment not carried out due to patient leaving prior to being seen by health care provider (principal) ==

== ENCOUNTER 2024-08-09 18:13 | Emergency (ER) | payer OTHER, SELFPAY ==
[2024-08-09 18:17] VITALS: BP 151/86; PULSE 105; RESP 16; TEMP 36.5; O2SAT 97
--- NOTE | 2024-08-09 19:11 | ED.GENADUL_ITS ---
Discharge Plan Disposition Patient Disposition: Home Condition: Stable Discharge Details Clinical Impression: Pain of left calf, History of deep vein thrombosis Primary Care Provider: Brendon Vivar ED Provider: Tere Adams Home Meds and New Rx's Prescriptions: No Action cyclobenzaprine 10 mg tablet 10 mg PO TID PRN (Reason: muscle spasm) Qty: 30 3RF gabapentin 300 mg capsule 300 mg PO BID Qty: 180 3RF clonazepam 1 mg tablet 1 mg PO BID Qty: 55 0RF Zepbound 2.5 mg/0.5 mL pen injector 2.5 mg subcut QWEEK Qty: 2 0RF Rx Instructions: for 4 weeks omeprazole 40 mg capsule,delayed release(DR/EC) 40 mg PO DAILY Qty: 90 3RF methadone 10 mg/5 mL solution 100 mg PO QAM simethicone 125 mg tablet,chewable 125 mg PO QID PRN (Reason: abdominal distention) Qty: 20 3RF calcitriol 0.5 mcg capsule 1 mcg PO .COMPLEX Qty: 270 3RF Rx Instructions: 1 mcg orally t2 tabs qam and 1 tab QHS; calcium carbonate [Tums] 200 mg calcium (500 mg) tablet,chewable 2,000 mg PO BID prochlorperazine maleate 5 mg tablet 5 mg PO TID PRN (Reason: acute nausea) Qty: 30 0RF benzonatate 200 mg capsule 200 mg PO TID PRN Patient Comments: TAKE ONE CAPSULE BY MOUTH EVERY 8 HOURS NEEDED FOR COUGH magnesium gluconate 27 mg magnesium (500 mg) tablet 13.5 mg PO TID Qty: 60 3RF promethazine 6.25 mg/5 mL syrup 12.5 mg PO Q6H PRN (Reason: cough) Qty: 120 0RF prednisone 20 mg tablet 40 mg PO ONCE Qty: 10 0RF polyethylene glycol 3350 17 gram powder in packet 17 g PO BID Qty: 100 1RF Discharge Instructions Instructions: How to Prevent Blood Clots Additional Instructions: You were seen in the emergency department today for evaluation of left calf pain. In our department you do full physical examination performed and you had an ultrasound performed of your left lower extremity that did not show any sign of blood clot in your thigh or behind your knee. We discussed laboratory studies and empiric anticoagulation and ultimately we have decided for you to pursue outpatient formal ultrasonography. Please reach out to your primary care provider to let them know that this study has been ordered so that they can follow-up on the results. Thank you for allowing us to be part of your care. HPI General Mode of arrival: ambulatory . Date/Time Provider Initiated Documentation: 08/09/24 18:40 . Limitations to Documentation: no limitations . Information obtained by: patient and old records reviewed . HPI Narrative: HPI: This is a 28-year-old male patient with a past medical history significant for MEN type I, anxiety, hyperlipidemia, and CKD who is presenting for evaluation of left leg pain. The patient reports that he has a history of DVTs in that leg, today developed a discomfort in the calf and thigh in the absence of trauma that feels similar to his prior episodes of DVT. He has not been on anticoagulation in over a year, states that he has not noted any swelling, redness or, or color changes, states that he does sleep with that leg propped up in a somewhat awkward angle, which she thinks could have contributed to the symptoms. He has no numbness or sensory changes, weakness, or other concerns regarding that leg, and this is an isolated complaint and the patient has no other concerns today. Exam: Gen: Awake and alert, in no apparent distress HEENT: Non-icteric sclera Neck: Supple Lungs: No apparent respiratory distress, normal respiratory effort. CV: Appears well perfused Abdomen: Non-distended MSK: Moves 4 extremities without apparent limitation in ROM. The patient has a calf circumference of 20 inches bilaterally without swelling, edema, or color change of the affected leg. He does not have significant calf tenderness with palpation, strong and symmetrical DP pulses. Skin: Visualized skin without rashes, cyanosis. Neuro: Normal Gait, no obvious focal deficits or facial asymmetry. Speaks in full, clear sentences. Psych: Appropriate for situation. MDM: This is a 28-year-old male patient presenting for evaluation of leg pain. Differential includes but is not limited to muscle strain, DVT, examination is not consistent with arterial occlusion, phlegmasia, cellulitis. He has no neurovascular abnormalities and is hemodynamically appropriate. ED Course: Ultrasound performed as noted below, which shows no DVT, all veins are compressible. I feel that the risk of DVT is quite low, given the lack of swelling and the reassuring bedside ultrasound. I will ensure that the patient has an outpatient order for formal ultrasound. I did have a shared decision- making conversation with the patient regarding D-dimer testing and empiric anticoagulation based on the results of that study, and at this time the patient is desiring of avoiding laboratory studies, and feels reassured with the ultrasound that was performed. I do feel that this is a reasonable approach, and at this time, the patient has had a full medical evaluation and is safe for discharge to home. They are hemodynamically stable, ambulatory, and tolerating PO. They are understanding of the follow-up plan and return precautions. They left our facility without incident. Tere Adams MD Related Data Home Medications ?Medication ?Instructions ?Recorded ?Confirmed calcium carbonate (Tums) 2,000 mg PO BID 02/02/23 08/09/24 methadone 10 mg/5 mL oral solution 100 mg PO QAM 06/12/23 08/09/24 prochlorperazine maleate 5 mg 5 mg PO TID PRN acute nausea #30 09/06/23 08/09/24 tablet tabs magnesium gluconate 27 mg 13.5 mg (1/2 x 27 mg magnesium 11/21/23 08/09/24 magnesium (500 mg) tablet (500 mg)) PO TID #60 tabs simethicone 125 mg chewable tablet 125 mg PO QID PRN abdominal 03/12/24 08/09/24 distention #20 tabs promethazine 6.25 mg/5 mL oral 12.5 mg (10 mL) PO Q6H PRN cough 05/15/24 08/09/24 syrup #120 mL cyclobenzaprine 10 mg tablet 10 mg PO TID PRN muscle spasm #30 06/01/24 08/09/24 tabs gabapentin 300 mg capsule 300 mg PO BID #180 caps 06/01/24 08/09/24 calcitriol 0.5 mcg capsule 1 mcg (2 x 0.5 mcg) PO .COMPLEX 06/29/24 08/09/24 #270 caps prednisone 20 mg tablet 40 mg (2 x 20 mg) PO ONCE #10 tabs 07/14/24 08/09/24 benzonatate 200 mg capsule 200 mg PO TID PRN 07/16/24 08/09/24 polyethylene glycol 3350 17 gram 17 g PO BID #100 ea 07/22/24 08/09/24 oral powder packet clonazepam 1 mg tablet 1 mg PO BID #55 tabs 07/27/24 08/09/24 omeprazole 40 mg capsule,delayed 40 mg PO DAILY #90 caps 07/27/24 08/09/24 release tirzepatide (weight loss) 2.5 2.5 mg (0.5 mL) subcut QWEEK #2 mL 07/27/24 08/09/24 mg/0.5 mL subcutaneous pen injector (Zepbound) Previous Rx's ?Medication ?Instructions ?Recorded prochlorperazine maleate 5 mg 5 mg PO TID PRN acute nausea #30 09/06/23 tablet tabs magnesium gluconate 27 mg 13.5 mg (1/2 x 27 mg magnesium 11/21/23 magnesium (500 mg) tablet (500 mg)) PO TID #60 tabs simethicone 125 mg chewable tablet 125 mg PO QID PRN abdominal 03/12/24 distention #20 tabs promethazine 6.25 mg/5 mL oral 12.5 mg (10 mL) PO Q6H PRN cough 05/15/24 syrup #120 mL cyclobenzaprine 10 mg tablet 10 mg PO TID PRN muscle spasm #30 06/01/24 tabs gabapentin 300 mg capsule 300 mg PO BID #180 caps 06/01/24 calcitriol 0.5 mcg capsule 1 mcg (2 x 0.5 mcg) PO .COMPLEX 06/29/24 #270 caps prednisone 20 mg tablet 40 mg (2 x 20 mg) PO ONCE #10 tabs 07/14/24 polyethylene glycol 3350 17 gram 17 g PO BID #100 ea 07/22/24 oral powder packet clonazepam 1 mg tablet 1 mg PO BID #55 tabs 07/27/24 omeprazole 40 mg capsule,delayed 40 mg PO DAILY #90 caps 07/27/24 release tirzepatide (weight loss) 2.5 2.5 mg (0.5 mL) subcut QWEEK #2 mL 07/27/24 mg/0.5 mL subcutaneous pen injector (Zepbound) Allergies Allergy/AdvReac Type Severity Reaction Status Date / Time codeine Allergy Intermediate pass out Verified 08/09/24 18:22 Penicillins Allergy Skin Rash Verified 08/09/24 18:22 marijuana (cannabis) AdvReac Severe Paranoia Verified 08/09/24 18:22 amoxicillin AdvReac Intermediate Nausea Verified 08/09/24 18:22 dextromethorphan (From AdvReac Intermediate got Verified 08/09/24 18:22 NyQuil) really hot and sweaty doxylamine (From NyQuil) AdvReac Intermediate got Verified 08/09/24 18:22 really hot and sweaty pseudoephedrine (From NyQuil) AdvReac Intermediate got Verified 08/09/24 18:22 really hot and sweaty General Stated Complaint: GenMedical ADRIANA: 4 Course Vital Signs Vital signs: Vital Signs Temperature 36.5 C 08/09/24 18:17 Pulse 105 H 08/09/24 18:17 Respiratory Rate 16 08/09/24 18:17 Blood Pressure 151/86 H 08/09/24 18:17 Pulse Oximetry 97 08/09/24 18:17 Temperature 36.5 C 08/09/24 18:17 Temperature Source Oral 08/09/24 18:17 Pulse 105 H 08/09/24 18:17 Respiratory Rate 16 08/09/24 18:17 Blood Pressure 151/86 H 08/09/24 18:17 Blood Pressure Position Sitting 08/09/24 18:17 Pulse Oximetry 97 08/09/24 18:17 Oxygen Delivery Method Room Air 08/09/24 18:17 Oxygen Flow Rate 0 08/09/24 18:17 Pain Level 4 08/09/24 18:17 Medical Decision Making Quality:SDOH Health Related Social Needs: Health related social needs problems with daily activi ties (Z73.9) PFSH All Active Problems (Updated 08/09/24 @ 19:14 by Tere Adams MD) History of deep vein thrombosis (Acute) Pain of left calf (Acute) Gastritis (Acute) Hypercalcemia (Acute) Upper respiratory infection (Acute) Fatty liver (Acute) Constipation (Acute) Left-sided chest pain (Acute) Acute left lumbar radiculopathy (Acute) IBS (irritable bowel syndrome) (Chronic) Pain of right calf (Acute) Obesity (Chronic) Migraine with aura (Acute) Insect bite of leg, right (Acute) Testicle lump (Acute) Hamstring tendinitis of left thigh (Acute) Pes anserine bursitis (Acute) Hypernatremia (Acute) Cervical radiculopathy (Acute) Left-sided Flower's palsy (Acute) Constipation (Acute) Grief reaction (Chronic) Opiate dependence, continuous (Acute) 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 Possible 2' Methadone, Clnzpm (?). Surg eval (+)/No further action. History of electrolyte imbalance (Acute) Neck pain on left side (Acute) with shoulder, upper back pain.. torticollis, radiating into left hip/leg Pulmonary nodule 1 cm or greater in diameter (Chronic) Therapeutic opioid induced constipation (Acute) Sphincter of Oddi dysfunction (Chronic) Abnormal CT scan, kidney (Acute) Intrahepatic bile duct dilation (Acute) Common bile duct dilatation (Chronic) Has been dilated for quite some time, now more-so. Normal LFTs. Known gallstones. Iatrogenic hypocalcemia (Acute) Multiple endocrine neoplasia type I (Chronic) Depression (Chronic) Hypocalcemia (Chronic) Elevated parathyroid hormone (Acute) Family history of coronary arteriosclerosis (Chronic) Father of CT at 50, mother had CT at 42 Severe anxiety with panic (Chronic) Medical History Urinary tract infection CKD (chronic kidney disease) stage 2, GFR 60-89 ml/min GFR 64-65, with Hx FLORESITA and GFR < 45 Primary hyperparathyroidism Complex medical condition Serious electrolyte imbalances, with gynecomastia, possible MEN Dx, CKD and anemia with baseline anxiety and Hx PTSD. Hypocalcemia Anxiety Depression Hyperlipidemia Family history of multiple endocrine neoplasia, type 1 PTSD (post-traumatic stress disorder) Per pt. states no triggers at this time. Surgical History History of laparoscopic cholecystectomy (~11/2023) H/O parathyroidectomy Family History Mother Anxiety Asthma Depression Sister Anxiety Depression Father Cancer lung & stomach Depression Diabetes Hypertension MEN 1 (multiple endocrine neoplasia) Social History Smoking/Tobacco Use Status: Never Smoking risk assessment performed?: Yes Alcohol Intake: current Alcohol Intake frequency: holidays/special occasions only Alcohol type: beer Drug use: Current Sobriety Substance use type: former substance user, crack/cocaine, heroin and painkillers Details: stopped using substances for the passed 4 years Adopted: No Caregiver/Support person: No Foster care: No Household members: none Housing: apartment Number of Children: 0 Communication Needs: None Education Level: high school Do you need help understanding health information?: Never current occupation: [employer] Pets and animals: Yes (Ally) Pets and animals: dog(s) Sexually active: No Do you think of yourself as: straight/heterosexual Current gender identity: male What is your relationship status?: How often do you talk on the phone with friends or family?: twice per week How often do you get together with friends or relatives?: never Do you belong to any clubs or organized social groups?: no Panel score (0-1 are the most socially isolated patients): 0 What type of physical activity do you participate in: walking Duration: 15-30 minutes/day Frequency: 5-6 times per week Maryam/Moravian: [employer] Special maryam needs: No Seatbelt use: always Helmet use: Yes Helmet use: always Drive intox or ride w/intox cpr ambulance driver: No Do you feel safe at home: Yes Do you feel safe in your relationship?: Yes POCUS Exam (ED) Limited Vascular Exam DATE OF EXAM: 08/09/24 TIME OF EXAM: 18:20 PROVIDER THAT PERFORMED THE STUDY: Tere Adams IS THIS A REPEAT EXAM DURING THIS ENCOUNTER: No Vascular Exam: Left lower extremity REASON FOR EXAM: Concern for DVT left lower extremity and Left calf pain VISUALIZED STRUCTURES: Left common femoral vein and Left popliteal vein PERTINENT FINDINGS/IMPRESSION: Compressible veins left leg and No apparent abnormalities Exam Complete
--- NOTE | 2024-08-10 08:12 | NUR.NOTE ---
Faxed to [facility] request for LLE US for left calf pain. To follow up with PCP, to be done next available. Nursing Note:
== END 2024-08-09 19:23 | disposition home or self-care (01) ==
PROVIDERS: Emergency Provider Emergency Medicine; PCP Family Medicine
DX: M79.662 Pain in left lower leg (principal); Z86.718 Personal history of other venous thrombosis and embolism; Z73.9 Problem related to life management difficulty, unspecified
CPT/HCPCS: 93971; 99284; 99283

== ENCOUNTER 2024-08-11 01:44 | Outpatient (CLI) | payer MEDICAID, SELFPAY ==
--- NOTE | 2024-08-11 | DI.US_ITS ---
Exam(s) US LOWER EXTREMITY VENOUS LT EXAM: US LOWER EXTREMITY VENOUS LT CLINICAL HISTORY: LT CALF PAIN, TECHNIQUE: Left lower extremity venous ultrasound performed using grayscale, color-flow, and spectra l Doppler analysis. COMPARISON: No exams were available for comparison FINDINGS: The left common femoral, femoral and popliteal veins demonstrate normal compressibility, augmentation , and color Doppler. The posterior tibial and peroneal veins are patent. The saphenofemoral junction is unremarkable. There is no evidence of a Almanza cyst. The soft tissues are unremarkable. The vein s in the region of interest in the posterior calf full were also shown to be patent and compressible. IMPRESSION: No evidence of a left lower extremity DVT. DATA REPOSITORY:
== END 2024-08-11 02:04 ==
LOC: DI 01:44
PROVIDERS: PCP Family Medicine; Visit Provider Emergency Medicine
DX: M79.662 Pain in left lower leg (principal)
CPT/HCPCS: 93971

== ENCOUNTER 2024-08-17 20:59 | Emergency (ER) | payer OTHER, SELFPAY ==
--- NOTE | 2024-08-17 21:00 | RT.EKG_ITS ---
APPROVED REPORT Exam: Resting ECG Reason for Exam: chest pain Patient Location: E HR:97 bpm ECG Measurements Heart Rate 97 AXIS SD 175 P 57 QRSd 98 QRS 84 QT 365 T 25 QTc 464 Conclusion Sinus rhythm...normal P axis, V-rate 60- 99
--- NOTE | 2024-08-17 21:03 | ED.GENADUL_ITS ---
Discharge Plan Discharge Details Chief Complaint: Chest Pain Primary Care Provider: Brendon Vivar ED Provider: Saranya Estrada Home Meds and New Rx's Prescriptions: No Action cyclobenzaprine 10 mg tablet 10 mg PO TID PRN (Reason: muscle spasm) Qty: 30 3RF gabapentin 300 mg capsule 300 mg PO BID Qty: 180 3RF clonazepam 1 mg tablet 1 mg PO BID Qty: 55 0RF Zepbound 2.5 mg/0.5 mL pen injector 2.5 mg subcut QWEEK Qty: 2 0RF Rx Instructions: for 4 weeks omeprazole 40 mg capsule,delayed release(DR/EC) 40 mg PO DAILY Qty: 90 3RF methadone 10 mg/5 mL solution 100 mg PO QAM simethicone 125 mg tablet,chewable 125 mg PO QID PRN (Reason: abdominal distention) Qty: 20 3RF calcitriol 0.5 mcg capsule 1 mcg PO .COMPLEX Qty: 270 3RF Rx Instructions: 1 mcg orally t2 tabs qam and 1 tab QHS; calcium carbonate [Tums] 200 mg calcium (500 mg) tablet,chewable 2,000 mg PO BID prochlorperazine maleate 5 mg tablet 5 mg PO TID PRN (Reason: acute nausea) Qty: 30 0RF benzonatate 200 mg capsule 200 mg PO TID PRN Patient Comments: TAKE ONE CAPSULE BY MOUTH EVERY 8 HOURS NEEDED FOR COUGH magnesium gluconate 27 mg magnesium (500 mg) tablet 13.5 mg PO TID Qty: 60 3RF promethazine 6.25 mg/5 mL syrup 12.5 mg PO Q6H PRN (Reason: cough) Qty: 120 0RF prednisone 20 mg tablet 40 mg PO ONCE Qty: 10 0RF polyethylene glycol 3350 17 gram powder in packet 17 g PO BID Qty: 100 1RF HPI General Date/Time Provider Initiated Documentation: 08/17/24 21:01 . HPI Narrative: Pedro Pablo is a 28year old male who presents to the emergency department today for evaluation of not feeling well. He is concerned his calcium and magnesium may be off. He has had some congestion, sore throat, cough with mucus production, body aches starting yesterday. He also has had tingling to his fingers and around his mouth, has not been feeling anxiety but does feel similar. He has had some episodes of sharp brief stabbing left-sided chest pain that comes and goes throughout the afternoon, says is similar to previous episodes of chest discomfort, thinks it may be related to muscle spasm. This is not accompanied by any other symptoms such as shortness of breath, nausea, diaphoresis; no aggravating or alleviating factors. past medical history is significant for DVT, MEN type I, anxiety, HLD, CKD. Physical exam reassuring. Pedro Pablo is alert and oriented, no acute distress. Easy work of breathing, lung sounds clear bilaterally. Normal heart sounds. No pain with palpation of chest wall. Moving all extremities equally D/dx includes but is not limited to: Viral illness, electrolyte imbalance, arrhythmia, anxiety, muscle spasm, symptomatic anemia. Low suspicion for ACS, heart score 1; troponin is not indicated based on [facility] ACS decision aid. I did offer opportunity check troponins with Pedro Pablo, however he declines, does not feel this is cardiac related. I independently interpreted the following tests: EKG reassuring, normal sinus rhythm rate 97, no changes consistent with acute ischemia, normal intervals. CBC reassuring, anemia unchanged from baseline. BMP reassuring, no change in baseline kidney function, calcium and magnesium within normal limits. COVID/flu negative. While in the emergency department, Pedro Pablo received bartolome remigio to sip on. History and presentation consistent with viral illness. Recommend good hydration and symptomatic management. Reviewed discharge instructions with patient, including symptomatic management and red flags indicating need for return to emergency care. He voices agreement with plan of care. Related Data Home Medications ?Medication ?Instructions ?Recorded ?Confirmed calcium carbonate (Tums) 2,000 mg PO BID 02/02/23 08/17/24 methadone 10 mg/5 mL oral solution 100 mg PO QAM 06/12/23 08/17/24 prochlorperazine maleate 5 mg 5 mg PO TID PRN acute nausea #30 09/06/23 08/17/24 tablet tabs magnesium gluconate 27 mg 13.5 mg (1/2 x 27 mg magnesium 11/21/23 08/17/24 magnesium (500 mg) tablet (500 mg)) PO TID #60 tabs simethicone 125 mg chewable tablet 125 mg PO QID PRN abdominal 03/12/24 08/17/24 distention #20 tabs promethazine 6.25 mg/5 mL oral 12.5 mg (10 mL) PO Q6H PRN cough 05/15/24 08/17/24 syrup #120 mL cyclobenzaprine 10 mg tablet 10 mg PO TID PRN muscle spasm #30 06/01/24 08/17/24 tabs gabapentin 300 mg capsule 300 mg PO BID #180 caps 06/01/24 08/17/24 calcitriol 0.5 mcg capsule 1 mcg (2 x 0.5 mcg) PO .COMPLEX 06/29/24 08/17/24 #270 caps prednisone 20 mg tablet 40 mg (2 x 20 mg) PO ONCE #10 tabs 07/14/24 08/17/24 benzonatate 200 mg capsule 200 mg PO TID PRN 07/16/24 08/17/24 polyethylene glycol 3350 17 gram 17 g PO BID #100 ea 07/22/24 08/17/24 oral powder packet clonazepam 1 mg tablet 1 mg PO BID #55 tabs 07/27/24 08/17/24 omeprazole 40 mg capsule,delayed 40 mg PO DAILY #90 caps 07/27/24 08/17/24 release tirzepatide (weight loss) 2.5 2.5 mg (0.5 mL) subcut QWEEK #2 mL 07/27/24 08/17/24 mg/0.5 mL subcutaneous pen injector (Zepbound) Previous Rx's ?Medication ?Instructions ?Recorded prochlorperazine maleate 5 mg 5 mg PO TID PRN acute nausea #30 09/06/23 tablet tabs magnesium gluconate 27 mg 13.5 mg (1/2 x 27 mg magnesium 11/21/23 magnesium (500 mg) tablet (500 mg)) PO TID #60 tabs simethicone 125 mg chewable tablet 125 mg PO QID PRN abdominal 03/12/24 distention #20 tabs promethazine 6.25 mg/5 mL oral 12.5 mg (10 mL) PO Q6H PRN cough 05/15/24 syrup #120 mL cyclobenzaprine 10 mg tablet 10 mg PO TID PRN muscle spasm #30 06/01/24 tabs gabapentin 300 mg capsule 300 mg PO BID #180 caps 06/01/24 calcitriol 0.5 mcg capsule 1 mcg (2 x 0.5 mcg) PO .COMPLEX 06/29/24 #270 caps prednisone 20 mg tablet 40 mg (2 x 20 mg) PO ONCE #10 tabs 07/14/24 polyethylene glycol 3350 17 gram 17 g PO BID #100 ea 07/22/24 oral powder packet clonazepam 1 mg tablet 1 mg PO BID #55 tabs 07/27/24 omeprazole 40 mg capsule,delayed 40 mg PO DAILY #90 caps 07/27/24 release tirzepatide (weight loss) 2.5 2.5 mg (0.5 mL) subcut QWEEK #2 mL 07/27/24 mg/0.5 mL subcutaneous pen injector (Zepbound) Allergies Allergy/AdvReac Type Severity Reaction Status Date / Time codeine Allergy Intermediate pass out Verified 08/17/24 21:08 Penicillins Allergy Skin Rash Verified 08/17/24 21:08 marijuana (cannabis) AdvReac Severe Paranoia Verified 08/17/24 21:08 amoxicillin AdvReac Intermediate Nausea Verified 08/17/24 21:08 dextromethorphan (From AdvReac Intermediate got Verified 08/17/24 21:08 NyQuil) really hot and sweaty doxylamine (From NyQuil) AdvReac Intermediate got Verified 08/17/24 21:08 really hot and sweaty pseudoephedrine (From NyQuil) AdvReac Intermediate got Verified 08/17/24 21:08 really hot and sweaty General ADRIANA: 4 Review of Systems Narrative: See HPI Exam Const General: cooperative, healthy appearing, comfortable, no acute distress and well developed Orientation: alert and oriented x3 Chest Chest: normal inspection of the chest and normal palpation of entire chest wall Resp Effort & Inspection: normal respiratory effort and able to speak in complete sentences Auscultation: clear to auscultation bilaterally Cardio Rate: regular rate Rhythm: regular rhythm Skin General skin exam: no rashes or lesions noted Medical Decision Making Quality:SDOH Health Related Social Needs: Health related social needs problems with daily activi ties (Z73.9) PFSH All Active Problems (Updated 08/16/24 @ 00:02 by HAMMAD WILEY) History of deep vein thrombosis (Acute) Pain of left calf (Acute) Gastritis (Acute) Hypercalcemia (Acute) Upper respiratory infection (Acute) Fatty liver (Acute) Constipation (Acute) IBS (irritable bowel syndrome) (Chronic) Pain of right calf (Acute) Obesity (Chronic) Migraine with aura (Acute) Insect bite of leg, right (Acute) Testicle lump (Acute) Hamstring tendinitis of left thigh (Acute) Pes anserine bursitis (Acute) Hypernatremia (Acute) Cervical radiculopathy (Acute) Left-sided Flower's palsy (Acute) Constipation (Acute) Grief reaction (Chronic) Opiate dependence, continuous (Acute) 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 Possible 2' Methadone, Clnzpm (?). Surg eval (+)/No further action. History of electrolyte imbalance (Acute) Neck pain on left side (Acute) with shoulder, upper back pain.. torticollis, radiating into left hip/leg Pulmonary nodule 1 cm or greater in diameter (Chronic) Therapeutic opioid induced constipation (Acute) Sphincter of Oddi dysfunction (Chronic) Abnormal CT scan, kidney (Acute) Intrahepatic bile duct dilation (Acute) Common bile duct dilatation (Chronic) Has been dilated for quite some time, now more-so. Normal LFTs. Known gallstones. Iatrogenic hypocalcemia (Acute) Multiple endocrine neoplasia type I (Chronic) Depression (Chronic) Hypocalcemia (Chronic) Elevated parathyroid hormone (Acute) Family history of coronary arteriosclerosis (Chronic) Father of MA at 50, mother had MA at 42 Severe anxiety with panic (Chronic) Medical History Urinary tract infection CKD (chronic kidney disease) stage 2, GFR 60-89 ml/min GFR 64-65, with Hx FLORESITA and GFR < 45 Primary hyperparathyroidism Complex medical condition Serious electrolyte imbalances, with gynecomastia, possible MEN Dx, CKD and anemia with baseline anxiety and Hx PTSD. Hypocalcemia Anxiety Depression Hyperlipidemia Family history of multiple endocrine neoplasia, type 1 PTSD (post-traumatic stress disorder) Per pt. states no triggers at this time. Surgical History History of laparoscopic cholecystectomy (~11/2023) H/O parathyroidectomy Family History Mother Anxiety Asthma Depression Sister Anxiety Depression Father Cancer lung & stomach Depression Diabetes Hypertension MEN 1 (multiple endocrine neoplasia) Social History Smoking/Tobacco Use Status: Never Smoking risk assessment performed?: Yes Alcohol Intake: current Alcohol Intake frequency: holidays/special occasions only Alcohol type: beer Drug use: Current Sobriety Substance use type: former substance user, crack/cocaine, heroin and painkillers Details: stopped using substances for the passed 4 years Adopted: No Caregiver/Support person: No Foster care: No Household members: none Housing: apartment Number of Children: 0 Communication Needs: None Education Level: high school Do you need help understanding health information?: Never current occupation: [employer] Pets and animals: Yes (Ally) Pets and animals: dog(s) Sexually active: No Do you think of yourself as: straight/heterosexual Current gender identity: male What is your relationship status?: How often do you talk on the phone with friends or family?: twice per week How often do you get together with friends or relatives?: never Do you belong to any clubs or organized social groups?: no Panel score (0-1 are the most socially isolated patients): 0 What type of physical activity do you participate in: walking Duration: 15-30 minutes/day Frequency: 5-6 times per week Maryam/Voodoo: Spiritism Special maryam needs: No Seatbelt use: always Helmet use: Yes Helmet use: always 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 Do you feel safe at home: Yes Do you feel safe in your relationship?: Yes
[2024-08-17 21:06] VITALS: BP 141/80; PULSE 99; RESP 20; O2SAT 95
[2024-08-17 21:18] VITALS: RESP 18
[2024-08-17 21:23] LABS: HCT 34.3 % (40.0-50.0); HGB 10.9 g/dL (13.5-17.5); MCHC 31.8 % (32.0-36.0); MCV 85 fL (80-95); Platelet Count 366 10^3/uL (130-400); RBC 4.03 10^6/uL (4.36-5.78); RDW 15.5 % (11.8-14.1); WBC 9.05 10^3/uL (4.4-10.8)
[2024-08-17 21:34] LABS: Anion Gap 6.9 mmol/L (3-11); BUN 20 mg/dL (7-18); CO2 33.1 mmol/L (21.0-32.0); CREATININE 1.8 mg/dL (0.70-1.30); Calcium 9.5 mg/dL (8.5-10.1); Chloride 102 mmol/L (98-107); Estimated GFR 51.29 (mL/min/1.73m2); Glucose 100 mg/dL (74-106); Magnesium 1.9 mg/dL (1.8-2.4); Potassium 3.6 mmol/L (3.5-5.1); Sodium 142 mmol/L (136-145)
== END 2024-08-17 22:24 | disposition home or self-care (01) ==
PROVIDERS: Emergency Provider Nurse Practitioner Family; PCP Family Medicine
DX: E89.2 Postprocedural hypoparathyroidism (principal); E78.5 Hyperlipidemia, unspecified; Z86.718 Personal history of other venous thrombosis and embolism; Z79.899 Other long term (current) drug therapy; R07.9 Chest pain, unspecified
CPT/HCPCS: 36415; 80048; 85027; 87426; 93005; 99285; 83735; 93010; 99284

== ENCOUNTER 2024-08-24 09:06 | Emergency (ER) | payer OTHER, SELFPAY ==
--- NOTE | 2024-08-24 09:00 | RT.EKG_ITS ---
APPROVED REPORT Exam: Resting ECG Reason for Exam: dizziness Patient Location: E HR:87 bpm ECG Measurements Heart Rate 87 AXIS VA 180 P 50 QRSd 99 QRS 26 QT 358 T 31 QTc 430 Conclusion Sinus rhythm...normal P axis, V-rate 60- 99 No STEMI
[2024-08-24 09:07] VITALS: BP 129/78; PULSE 96; RESP 18; TEMP 36.4; O2SAT 95
--- NOTE | 2024-08-24 09:21 | ED.GENADUL_ITS ---
Discharge Plan Disposition Patient Disposition: Home Discharge Details Clinical Impression: Dizziness, Microcytic anemia Primary Care Provider: Brendon Vivar ED Provider: Pedro Wolfe Home Meds and New Rx's Prescriptions: Continued cyclobenzaprine 10 mg tablet 10 mg PO TID PRN (Reason: muscle spasm) Qty: 30 3RF gabapentin 300 mg capsule 300 mg PO BID Qty: 180 3RF clonazepam 1 mg tablet 1 mg PO BID Qty: 55 0RF Zepbound 2.5 mg/0.5 mL pen injector 2.5 mg subcut QWEEK Qty: 2 0RF Rx Instructions: for 4 weeks omeprazole 40 mg capsule,delayed release(DR/EC) 40 mg PO DAILY Qty: 90 3RF methadone 10 mg/5 mL solution 100 mg PO QAM simethicone 125 mg tablet,chewable 125 mg PO QID PRN (Reason: abdominal distention) Qty: 20 3RF calcitriol 0.5 mcg capsule 1 mcg PO .COMPLEX Qty: 270 3RF Rx Instructions: 1 mcg orally t2 tabs qam and 1 tab QHS; calcium carbonate [Tums] 200 mg calcium (500 mg) tablet,chewable 2,000 mg PO BID prochlorperazine maleate 5 mg tablet 5 mg PO TID PRN (Reason: acute nausea) Qty: 30 0RF magnesium gluconate 27 mg magnesium (500 mg) tablet 13.5 mg PO TID Qty: 60 3RF promethazine 6.25 mg/5 mL syrup 12.5 mg PO Q6H PRN (Reason: cough) Qty: 120 0RF polyethylene glycol 3350 17 gram powder in packet 17 g PO BID Qty: 100 1RF prednisone 20 mg tablet 40 mg PO ONCE PRN Discharge Instructions Additional Instructions: You are seen in the emergency department for your dizziness. Your blood work shows that your kidneys are working well and you have no signs of any damage to your heart. Please follow-up with your primary care provider as you are red bl ood cell count is slightly low at 10.3 g/dL. Discharge Data Discharge Date/Time-TO BE ENTERED AT DEPARTURE: 08/24/24 10:17 HPI General Date/Time Provider Initiated Documentation: 08/24/24 09:09 . HPI Narrative: MDM This is an overall very well-appearing normothermic and not tachycardic 28-year-old male with transient now resolved dizziness concerning for multiple etiologies. ECG is nonischemic patient has no signs of any dysrhythmias but will obtain a troponin to assess for myocardial injury. No pain out of proportion to suggest necrotizing soft tissue infection. Patient is neurologically intact so my suspicion is low for CVA so I do not feel the patient would be a tPA candidate so I did not complete a CT scan of his head. No ear pain to suggest acute otitis media. No visual symptoms to suggest increased risk for acute closed angle glaucoma. He has had no recent chiropractic manipulation to suggest increased risk for cervical arterial dissection so I did not feel that the patient required a CT angiogram of his head. No history of tonic-clonic activity to suggest seizure so I did not feel that the patient required a EEG. No fevers to suggest meningitis I did not feel he required a lumbar puncture. No chest pain to suggest ACS. No tearing pain in chest to suggest pneumothorax. Patient has history of electrolyte abnormalities so we will obtain basic labs to assess for electrolyte abnormalities and reassess. 10 AM CBC with persistent normocytic anemia. No thrombocytopenia. No leukocytosis. Undetectable troponin. Normal reassuring magnesium. Calcium within normal limits. No FLORESITA. No acute electrolyte abnormalities. 12:12 PM Patient had a reassuring evaluation. He felt slightly improved in the emergency department. Advised him to follow-up with his PCP concerning his normocytic anemia. He denies any black or bloody stools. He is nonalcoholic to suggest upper GI bleed risk. We discussed that if he did develop black or bloody stools if he passed out or if he had any other concerns that he should return to the ED. He understood his return indications and was discharged with an empiric trial of expectant outpatient management. HPI This is a 28-year-old male with history of MEN 1 right emergency by via private vehicle in the setting of dizziness. Patient felt that the room was spinning and he was weak. He sat down and this improved. 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 He notes that he is no longer having symptoms. He feels that his electrolytes may be off. He has been nauseous. No vomiting. He denies headache and chest pain. He occasionally works around generator but has not done so today. Denies any falls. Denies any dysuria frequency abdominal pain nausea or vomiting. Denies routine tobacco, ethanol, and illicits. Exam General: Well-appearing in no acute distress speaking in complete sentences. Head: Normocephalic, atraumatic. Eye:[Pupils equal, round reactive to light.] Extraocular eye movements intact. No conjunctival injection. No scleral icterus. Ear, nose, mouth, throat: Grossly normal inspection. Normal voice, handling secretions normally. Neck: Trachea midline. Cardiovascular: Well-perfused distal extremities. Respiratory: Nonlabored respiration. Clear lungs bilaterally. Gastrointestinal: Nondistended abdomen. Soft nontender. Musculoskeletal: No edema. Moving all 4 extremities spontaneously. Skin: Normal for age and race, grossly normal temperature and turgor. No acute rash. Neurologic: Alert and appropriate, no apparent acute deficits. GCS 15. Cranial nerves II through XII intact grossly. 5 out of 5 bilateral upper and lower extremity strength. Psychiatric: Mood and manner are appropriate. Grooming and personal hygiene are appropriate. Related Data Home Medications ?Medication ?Instructions ?Recorded ?Confirmed calcium carbonate (Tums) 2,000 mg PO BID 02/02/23 08/24/24 methadone 10 mg/5 mL oral solution 100 mg PO QAM 06/12/23 08/24/24 prochlorperazine maleate 5 mg 5 mg PO TID PRN acute nausea #30 09/06/23 08/24/24 tablet tabs magnesium gluconate 27 mg 13.5 mg (1/2 x 27 mg magnesium 11/21/23 08/24/24 magnesium (500 mg) tablet (500 mg)) PO TID #60 tabs simethicone 125 mg chewable tablet 125 mg PO QID PRN abdominal 03/12/24 08/24/24 distention #20 tabs promethazine 6.25 mg/5 mL oral 12.5 mg (10 mL) PO Q6H PRN cough 05/15/24 08/24/24 syrup #120 mL cyclobenzaprine 10 mg tablet 10 mg PO TID PRN muscle spasm #30 06/01/24 08/24/24 tabs gabapentin 300 mg capsule 300 mg PO BID #180 caps 06/01/24 08/24/24 calcitriol 0.5 mcg capsule 1 mcg (2 x 0.5 mcg) PO .COMPLEX 06/29/24 08/24/24 #270 caps polyethylene glycol 3350 17 gram 17 g PO BID #100 ea 07/22/24 08/24/24 oral powder packet clonazepam 1 mg tablet 1 mg PO BID #55 tabs 07/27/24 08/24/24 omeprazole 40 mg capsule,delayed 40 mg PO DAILY #90 caps 07/27/24 08/24/24 release tirzepatide (weight loss) 2.5 2.5 mg (0.5 mL) subcut QWEEK #2 mL 07/27/24 08/24/24 mg/0.5 mL subcutaneous pen injector (Zepbound) prednisone 20 mg tablet 40 mg PO ONCE PRN 08/24/24 08/24/24 Previous Rx's ?Medication ?Instructions ?Recorded prochlorperazine maleate 5 mg 5 mg PO TID PRN acute nausea #30 09/06/23 tablet tabs magnesium gluconate 27 mg 13.5 mg (1/2 x 27 mg magnesium 11/21/23 magnesium (500 mg) tablet (500 mg)) PO TID #60 tabs simethicone 125 mg chewable tablet 125 mg PO QID PRN abdominal 03/12/24 distention #20 tabs promethazine 6.25 mg/5 mL oral 12.5 mg (10 mL) PO Q6H PRN cough 05/15/24 syrup #120 mL cyclobenzaprine 10 mg tablet 10 mg PO TID PRN muscle spasm #30 06/01/24 tabs gabapentin 300 mg capsule 300 mg PO BID #180 caps 06/01/24 calcitriol 0.5 mcg capsule 1 mcg (2 x 0.5 mcg) PO .COMPLEX 06/29/24 #270 caps polyethylene glycol 3350 17 gram 17 g PO BID #100 ea 07/22/24 oral powder packet clonazepam 1 mg tablet 1 mg PO BID #55 tabs 07/27/24 omeprazole 40 mg capsule,delayed 40 mg PO DAILY #90 caps 07/27/24 release tirzepatide (weight loss) 2.5 2.5 mg (0.5 mL) subcut QWEEK #2 mL 07/27/24 mg/0.5 mL subcutaneous pen injector (Zepbound) Allergies Allergy/AdvReac Type Severity Reaction Status Date / Time codeine Allergy Intermediate pass out Verified 08/24/24 09:12 Penicillins Allergy Skin Rash Verified 08/24/24 09:12 marijuana (cannabis) AdvReac Severe Paranoia Verified 08/24/24 09:12 amoxicillin AdvReac Intermediate Nausea Verified 08/24/24 09:12 dextromethorphan (From AdvReac Intermediate got Verified 08/24/24 09:12 NyQuil) really hot and sweaty doxylamine (From NyQuil) AdvReac Intermediate got Verified 08/24/24 09:12 really hot and sweaty pseudoephedrine (From NyQuil) AdvReac Intermediate got Verified 08/24/24 09:12 really hot and sweaty General Stated Complaint: Dizzy/Sync ADRIANA: 3 Course Vital Signs Vital signs: Vital Signs Pulse 96 H 08/24/24 09:07 Respiratory Rate 18 08/24/24 09:07 Blood Pressure 129/78 08/24/24 09:07 Pulse Oximetry 95 08/24/24 09:07 Pulse 96 H 08/24/24 09:07 Respiratory Rate 18 08/24/24 09:07 Blood Pressure 129/78 08/24/24 09:07 Blood Pressure Position Sitting 08/24/24 09:07 Pulse Oximetry 95 08/24/24 09:07 Oxygen Delivery Method Room Air 08/24/24 09:07 Oxygen Flow Rate 0 08/24/24 09:07 Pain Level 0 08/24/24 09:07 Medical Decision Making Quality:SDOH Health Related Social Needs: Health related social needs problems with daily activi ties (Z73.9) PFSH All Active Problems (Updated 08/24/24 @ 10:00 by Pedro Wolfe MD) Microcytic anemia (Acute) Dizziness (Acute) Viral illness (Acute) Chest pain (Acute) History of deep vein thrombosis (Acute) Pain of left calf (Acute) Gastritis (Acute) Hypercalcemia (Acute) Upper respiratory infection (Acute) Fatty liver (Acute) IBS (irritable bowel syndrome) (Chronic) Pain of right calf (Acute) Obesity (Chronic) Migraine with aura (Acute) Insect bite of leg, right (Acute) Testicle lump (Acute) Hamstring tendinitis of left thigh (Acute) Pes anserine bursitis (Acute) Hypernatremia (Acute) Cervical radiculopathy (Acute) Left-sided Flower's palsy (Acute) Constipation (Acute) Grief reaction (Chronic) Opiate dependence, continuous (Acute) 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 Possible 2' Methadone, Clnzpm (?). Surg eval (+)/No further action. History of electrolyte imbalance (Acute) Neck pain on left side (Acute) with shoulder, upper back pain.. torticollis, radiating into left hip/leg Pulmonary nodule 1 cm or greater in diameter (Chronic) Therapeutic opioid induced constipation (Acute) Sphincter of Oddi dysfunction (Chronic) Abnormal CT scan, kidney (Acute) Intrahepatic bile duct dilation (Acute) Common bile duct dilatation (Chronic) Has been dilated for quite some time, now more-so. Normal LFTs. Known gallstones. Iatrogenic hypocalcemia (Acute) Multiple endocrine neoplasia type I (Chronic) Depression (Chronic) Hypocalcemia (Chronic) Elevated parathyroid hormone (Acute) Family history of coronary arteriosclerosis (Chronic) Father of ME at 50, mother had ME at 42 Severe anxiety with panic (Chronic) Medical History Urinary tract infection CKD (chronic kidney disease) stage 2, GFR 60-89 ml/min GFR 64-65, with Hx FLORESITA and GFR < 45 Primary hyperparathyroidism Complex medical condition Serious electrolyte imbalances, with gynecomastia, possible MEN Dx, CKD and anemia with baseline anxiety and Hx PTSD. Hypocalcemia Anxiety Depression Hyperlipidemia Family history of multiple endocrine neoplasia, type 1 PTSD (post-traumatic stress disorder) Per pt. states no triggers at this time. Surgical History History of laparoscopic cholecystectomy (~11/2023) H/O parathyroidectomy Family History Mother Anxiety Asthma Depression Sister Anxiety Depression Father Cancer lung & stomach Depression Diabetes Hypertension MEN 1 (multiple endocrine neoplasia) Social History Smoking/Tobacco Use Status: Never Smoking risk assessment performed?: Yes Alcohol Intake: current Alcohol Intake frequency: holidays/special occasions only Alcohol type: beer Drug use: Current Sobriety Substance use type: former substance user, crack/cocaine, heroin and painkillers Details: stopped using substances for the passed 4 years Adopted: No Caregiver/Support person: No Foster care: No Household members: none Housing: apartment Number of Children: 0 Communication Needs: None Education Level: high school Do you need help understanding health information?: Never current occupation: [employer] Pets and animals: Yes (Ally) Pets and animals: dog(s) Sexually active: No Do you think of yourself as: straight/heterosexual Current gender identity: male What is your relationship status?: How often do you talk on the phone with friends or family?: twice per week How often do you get together with friends or relatives?: never Do you belong to any clubs or organized social groups?: no Panel score (0-1 are the most socially isolated patients): 0 What type of physical activity do you participate in: walking Duration: 15-30 minutes/day Frequency: 5-6 times per week Maryam[employer] Special maryam needs: No Seatbelt use: always Helmet use: Yes Helmet use: always Drive intox or ride w/intox flag car driver: No Do you feel safe at home: Yes Do you feel safe in your relationship?: Yes
[2024-08-24 09:34] VITALS: RESP 20
[2024-08-24 09:36] LABS: Abs Immature Grans 0.03 10^3/uL (0.0-0.06); Absolute Basophil Count 0.04 10^3/uL (0.0-0.2); Absolute Eosinophil Count 0.29 10^3/uL (0.0-0.7); Absolute Lymphocyte Count 2.03 10^3/uL (1.2-3.4); Absolute Monocyte Count 0.77 10^3/uL (0.1-0.8); Absolute Neutrophil Count 3.65 10^3/uL (1.2-6.7); Basophils % 0.6 %; Eosinophils % 4.3 %; HCT 32.4 % (40.0-50.0); HGB 10.3 g/dL (13.5-17.5); Immature Grans % 0.4 %; Lymphocytes % 29.8 %; MCH 26.8 pg (27.0-33.0); MCHC 31.8 % (32.0-36.0); MCV 84 fL (80-95); MPV 9.5 fL (8.0-11.0); Monocytes % 11.3 %; Neutrophils % 53.6 %; Platelet Count 336 10^3/uL (130-400); RBC 3.85 10^6/uL (4.36-5.78); RDW 15.2 % (11.8-14.1); RDW-SD 46.8 fL; WBC 6.81 10^3/uL (4.4-10.8)
[2024-08-24 09:54] LABS: Anion Gap 5.2 mmol/L (3-11); BUN 15 mg/dL (7-18); CO2 32.8 mmol/L (21.0-32.0); CREATININE 1.5 mg/dL (0.70-1.30); Calcium 8.9 mg/dL (8.5-10.1); Chloride 103 mmol/L (98-107); Estimated GFR 63.83 (mL/min/1.73m2); Glucose 101 mg/dL (74-106); Magnesium 1.8 mg/dL; Sodium 141 mmol/L (136-145); Troponin I < 4 ng/L (<or=76)
[2024-08-24 10:16] VITALS: BP 105/55; PULSE 89; RESP 18; O2SAT 97
== END 2024-08-24 10:17 | disposition home or self-care (01) ==
PROVIDERS: Emergency Provider Emergency Medicine; PCP Family Medicine
DX: R42 Dizziness and giddiness (principal); D50.9 Iron deficiency anemia, unspecified; N18.2 Chronic kidney disease, stage 2 (mild); E78.5 Hyperlipidemia, unspecified; E89.2 Postprocedural hypoparathyroidism; Z79.899 Other long term (current) drug therapy
CPT/HCPCS: 36415; 80048; 93005; 99283; 83735; 84484; 85025; 93010

== ENCOUNTER 2024-08-26 11:53 | Emergency (ER) | payer OTHER, SELFPAY ==
[2024-08-26 12:07] VITALS: BP 125/70; PULSE 106; RESP 15; TEMP 36.7; O2SAT 93
[2024-08-26 12:09] VITALS: BP 125/70; PULSE 106; RESP 15; TEMP 36.7; O2SAT 93
--- NOTE | 2024-08-26 12:15 | DI.RAD_ITS ---
Exam(s) XR CHEST 2V PA LATERAL EXAM: XR CHEST 2V PA LATERAL CLINICAL HISTORY: cough x 2 weeks TECHNIQUE: 2D digital imaging was performed of the chest. Two images were obtained. PA and lateral views were obtained. COMPARISON: CR XR CHEST 2V PA LATERAL from 07/29/2024 FINDINGS: MEDIASTINUM: Normal. HEART: Normal. PULMONARY VASCULATURE: Normal. LUNGS: Clear. PLEURAL SPACE: No pleural effusion or pneumothorax. BONE:Within normal limits for the patient's age. OTHER FINDINGS:Normal. IMPRESSION: No acute pulmonary findings. DATA REPOSITORY: RADIATION DOSE DELIVERED:
--- NOTE | 2024-08-26 12:15 | RT.EKG_ITS ---
APPROVED REPORT Exam: Resting ECG Reason for Exam: palpitations, dizziness, nausea Patient Location: E HR:89 bpm ECG Measurements Heart Rate 89 AXIS [place] 188 P 69 QRSd 93 QRS 71 QT 384 T 23 QTc 467 Conclusion Sinus rhythm, rate 89 No interval abnormalities No STEMI No significant changes from priors
--- NOTE | 2024-08-26 12:25 | ED.GENADUL_ITS ---
Discharge Plan Disposition Patient Disposition: Home Condition: Good Discharge Details Clinical Impression: Calf cramp, Palpitations Primary Care Provider: Brendon Vivar ED Provider: Saranya Estrada Home Meds and New Rx's Prescriptions: No Action cyclobenzaprine 10 mg tablet 10 mg PO TID PRN (Reason: muscle spasm) Qty: 30 3RF gabapentin 300 mg capsule 300 mg PO BID Qty: 180 3RF omeprazole 40 mg capsule,delayed release(DR/EC) 40 mg PO DAILY Qty: 90 3RF clonazepam 1 mg tablet 1 mg PO BID Qty: 55 1RF methadone 10 mg/5 mL solution 100 mg PO QAM simethicone 125 mg tablet,chewable 125 mg PO QID PRN (Reason: abdominal distention) Qty: 20 3RF calcitriol 0.5 mcg capsule 1 mcg PO .COMPLEX Qty: 270 3RF Rx Instructions: 1 mcg orally t2 tabs qam and 1 tab QHS; calcium carbonate [Tums] 200 mg calcium (500 mg) tablet,chewable 2,000 mg PO BID prochlorperazine maleate 5 mg tablet 5 mg PO TID PRN (Reason: acute nausea) Qty: 30 0RF magnesium gluconate 27 mg magnesium (500 mg) tablet 13.5 mg PO TID Qty: 60 3RF promethazine 6.25 mg/5 mL syrup 12.5 mg PO Q6H PRN (Reason: cough) Qty: 120 0RF polyethylene glycol 3350 17 gram powder in packet 17 g PO BID Qty: 100 1RF prednisone 20 mg tablet 40 mg PO ONCE PRN Discharge Instructions Additional Instructions: Please call your primary care provider first thing in the morning to schedule follow-up appointment. Your workup today was very reassuring. There is no sign of a pneumonia, blood clot, electrolyte imbalance, or other acute abnormality that is concerning. Continue taking your medications as prescribed. Return to emergency care if you develop new/concerning symptoms such as chest pain, episodes of passing out, calf redness/swelling/warmth, or if you are very worried and need to be rechecked again immediately Referrals: Brendon Vivar DO [Primary Care Provider] - HPI General Date/Time Provider Initiated Documentation: 08/26/24 12:12 . HPI Narrative: Pedro Pablo is a 28 year old male who presents to the emergency department today for evaluation of headache. He reports that this morning he woke up with a cramp in his left calf, after he got to work he pushed on it and all of a suddenly felt warm, short of breath, nauseated, palpitations, and severe headache rated 10/10. This lasted approximately 20 minutes, resolved with rest. Calf pain is now resolved. He reports that he currently has a mild headache rated 3/10. He has also had a cough that has been worsening over the last couple of weeks, is now productive of sputum. Denies fever/chills, vision changes, congestion, sore throat, chest pain, change in p.o. intake, change in bowel or bladder function, calf redness/swelling/tenderness/palpable masses. Past medical history is signi ficant for DVT, microcytic anemia, hypocalcemia,/hypomagnesemia, MEN 1, anxiety with panic disorders. Physical exam very reassuring. Pedro Pablo is alert and oriented, no acute distress. Cranial nerves II through XII intact as tested. PERRL, EOMs intact. Normal finger finger, finger-nose, heel zacarias, rapid alternating movements, Romberg, gait, heel toe walk. 5 out of 5 muscle strength upper and lower extremities. Normal heart sounds. Easy work of breathing, lung sounds clear bilaterally. Abdomen is soft, nondistended, nontender to palpation. D/dx includes but is not limited to: Headache, viral illness, pneumonia, electrolyte imbalance, anxiety, vasovagal near syncope. No red flags concerning for DVT in history or PE. I independently interpreted the following tests: CBC, CMP, magnesium all reassuring. EKG unremarkable, normal sinus rhythm with rate 89, no changes consistent with acute ischemia, normal intervals. Chest x-ray reassuring, no obvious infiltrates. This was confirmed by radiologist While in the emergency department, Pedro Pablo received Toradol for headache. He felt ready to leave, workup overall reassuring. Unclear etiology of symptoms today, possible vasovagal near syncope due to discomfort from muscle cramping. Reviewed discharge instructions with patient, including symptomatic management and red flags indicating need for return to emergency care Related Data Home Medications ?Medication ?Instructions ?Recorded ?Confirmed calcium carbonate (Tums) 2,000 mg PO BID 02/02/23 08/26/24 methadone 10 mg/5 mL oral solution 100 mg PO QAM 06/12/23 08/26/24 prochlorperazine maleate 5 mg 5 mg PO TID PRN acute nausea #30 09/06/23 08/26/24 tablet tabs magnesium gluconate 27 mg 13.5 mg (1/2 x 27 mg magnesium 11/21/23 08/26/24 magnesium (500 mg) tablet (500 mg)) PO TID #60 tabs simethicone 125 mg chewable tablet 125 mg PO QID PRN abdominal 03/12/24 08/26/24 distention #20 tabs promethazine 6.25 mg/5 mL oral 12.5 mg (10 mL) PO Q6H PRN cough 05/15/24 08/26/24 syrup #120 mL cyclobenzaprine 10 mg tablet 10 mg PO TID PRN muscle spasm #30 06/01/24 08/26/24 tabs gabapentin 300 mg capsule 300 mg PO BID #180 caps 06/01/24 08/26/24 calcitriol 0.5 mcg capsule 1 mcg (2 x 0.5 mcg) PO .COMPLEX 06/29/24 08/26/24 #270 caps polyethylene glycol 3350 17 gram 17 g PO BID #100 ea 07/22/24 08/26/24 oral powder packet omeprazole 40 mg capsule,delayed 40 mg PO DAILY #90 caps 07/27/24 08/26/24 release clonazepam 1 mg tablet 1 mg PO BID #55 tabs 08/24/24 08/26/24 prednisone 20 mg tablet 40 mg PO ONCE PRN 08/24/24 08/26/24 Previous Rx's ?Medication ?Instructions ?Recorded prochlorperazine maleate 5 mg 5 mg PO TID PRN acute nausea #30 09/06/23 tablet tabs magnesium gluconate 27 mg 13.5 mg (1/2 x 27 mg magnesium 11/21/23 magnesium (500 mg) tablet (500 mg)) PO TID #60 tabs simethicone 125 mg chewable tablet 125 mg PO QID PRN abdominal 03/12/24 distention #20 tabs promethazine 6.25 mg/5 mL oral 12.5 mg (10 mL) PO Q6H PRN cough 05/15/24 syrup #120 mL cyclobenzaprine 10 mg tablet 10 mg PO TID PRN muscle spasm #30 06/01/24 tabs gabapentin 300 mg capsule 300 mg PO BID #180 caps 06/01/24 calcitriol 0.5 mcg capsule 1 mcg (2 x 0.5 mcg) PO .COMPLEX 06/29/24 #270 caps polyethylene glycol 3350 17 gram 17 g PO BID #100 ea 07/22/24 oral powder packet omeprazole 40 mg capsule,delayed 40 mg PO DAILY #90 caps 07/27/24 release clonazepam 1 mg tablet 1 mg PO BID #55 tabs 08/24/24 Allergies Allergy/AdvReac Type Severity Reaction Status Date / Time codeine Allergy Intermediate pass out Verified 08/26/24 12:10 Penicillins Allergy Skin Rash Verified 08/26/24 12:10 marijuana (cannabis) AdvReac Severe Paranoia Verified 08/26/24 12:10 amoxicillin AdvReac Intermediate Nausea Verified 08/26/24 12:10 dextromethorphan (From AdvReac Intermediate got Verified 08/26/24 12:10 NyQuil) really hot and sweaty doxylamine (From NyQuil) AdvReac Intermediate got Verified 08/26/24 12:10 really hot and sweaty pseudoephedrine (From NyQuil) AdvReac Intermediate got Verified 08/26/24 12:10 really hot and sweaty General Stated Complaint: Headache ADRIANA: 4 Review of Systems Narrative: see HPI Exam Const General: cooperative, healthy appearing, comfortable, no acute distress and well developed Nutritional Appearance: average body habitus Orientation: alert and oriented x3 Neck Neck: normal visual inspection and full ROM Resp Effort & Inspection: normal respiratory effort and able to speak in complete sentences Auscultation: clear to auscultation bilaterally Cardio Rate: regular rate Rhythm: regular rhythm GI Inspection: normal to inspection and non-distended Palpation: soft, no guarding, not rigid and nontender Back/Spine/Pelvis Cervical Spine: normal cervical lordosis, cervical ROM normal, No cervical spinal tenderness and other (trapezius tenderness bilaterally) Skin General skin exam: no rashes or lesions noted Neuro General: patient alert, patient oriented x3, gait normal, tone normal, moves all extremities, no meningeal signs, no focal motor deficits and CN's II-XI intact bilaterally Cranial Nerves: CN's II-XI intact bilaterally, PERRL, EOM intact bilaterally, no nystagmus and facial strength normal Cognition: normal cognition Speech: speech normal Gait: normal gait Motor: muscle tone normal throughout and strength 5/5 throughout Sensory Exam: no sensory deficits noted Coordination: [id number] test normal, [id number] test normal, Romberg test normal, tandem gait normal, Does not sway with eyes open and rapid alternating movement UE normal Course Vital Signs Vital signs: Vital Signs Temperature 36.7 C 08/26/24 12:07 Pulse 106 H 08/26/24 12:07 Respiratory Rate 15 08/26/24 12:07 Blood Pressure 125/70 08/26/24 12:07 Pulse Oximetry 93 08/26/24 12:07 Temperature 36.7 C 08/26/24 12:09 Pulse 106 H 08/26/24 12:09 Respiratory Rate 15 08/26/24 12:09 Blood Pressure 125/70 08/26/24 12:09 Blood Pressure Position Sitting 08/26/24 12:09 Pulse Oximetry 93 08/26/24 12:09 Oxygen Delivery Method Room Air 08/26/24 12:09 Oxygen Flow Rate 0 08/26/24 12:09 Medical Decision Making Imaging Data Radiologic Study: Radiologist's impression: Exam(s) XR CHEST 2V PA LATERAL EXAM: XR CHEST 2V PA LATERAL CLINICAL HISTORY: cough x 2 weeks TECHNIQUE: 2D digital imaging was performed of the chest. Two images were obtained. PA and lateral views were obtained. COMPARISON: CR XR CHEST 2V PA LATERAL from 07/29/2024 FINDINGS: MEDIASTINUM: Normal. HEART: Normal. PULMONARY VASCULATURE: Normal. LUNGS: Clear. PLEURAL SPACE: No pleural effusion or pneumothorax. BONE:Within normal limits for the patient's age. OTHER FINDINGS:Normal. IMPRESSION: No acute pulmonary findings. Quality:SDOH Health Related Social Needs: Health related social needs problems with daily activi ties (Z73.9) [facility] All Active Problems (Updated 08/26/24 @ 13:44 by Saranya Avila) Palpitations (Acute) Calf cramp (Acute) Cubital tunnel syndrome (Acute) Carpal tunnel syndrome of right wrist (Acute) Microcytic anemia (Acute) Dizziness (Acute) Viral illness (Acute) Chest pain (Acute) History of deep vein thrombosis (Acute) Pain of left calf (Acute) Gastritis (Acute) Hypercalcemia (Acute) Upper respiratory infection (Acute) Fatty liver (Acute) IBS (irritable bowel syndrome) (Chronic) Pain of right calf (Acute) Obesity (Chronic) Migraine with aura (Acute) Insect bite of leg, right (Acute) Testicle lump (Acute) Hamstring tendinitis of left thigh (Acute) Pes anserine bursitis (Acute) Hypernatremia (Acute) Cervical radiculopathy (Acute) Left-sided Flower's palsy (Acute) Constipation (Acute) Grief reaction (Chronic) Opiate dependence, continuous (Acute) 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 Possible 2' Methadone, Clnzpm (?). Surg eval (+)/No further action. History of electrolyte imbalance (Acute) Neck pain on left side (Acute) with shoulder, upper back pain.. torticollis, radiating into left hip/leg Pulmonary nodule 1 cm or greater in diameter (Chronic) Therapeutic opioid induced constipation (Acute) Sphincter of Oddi dysfunction (Chronic) Abnormal CT scan, kidney (Acute) Intrahepatic bile duct dilation (Acute) Common bile duct dilatation (Chronic) Has been dilated for quite some time, now more-so. Normal LFTs. Known gallstones. Iatrogenic hypocalcemia (Acute) Multiple endocrine neoplasia type I (Chronic) Depression (Chronic) Hypocalcemia (Chronic) Elevated parathyroid hormone (Acute) Family history of coronary arteriosclerosis (Chronic) Father of ME at 50, mother had ME at 42 Severe anxiety with panic (Chronic) Medical History Urinary tract infection CKD (chronic kidney disease) stage 2, GFR 60-89 ml/min GFR 64-65, with Hx FLORESITA and GFR < 45 Primary hyperparathyroidism Complex medical condition Serious electrolyte imbalances, with gynecomastia, possible MEN Dx, CKD and anemia with baseline anxiety and Hx PTSD. Hypocalcemia Anxiety Depression Hyperlipidemia Family history of multiple endocrine neoplasia, type 1 PTSD (post-traumatic stress disorder) Per pt. states no triggers at this time. Surgical History History of laparoscopic cholecystectomy (~11/2023) H/O parathyroidectomy Family History Mother Anxiety Asthma Depression Sister Anxiety Depression Father Cancer lung & stomach Depression Diabetes Hypertension MEN 1 (multiple endocrine neoplasia) Social History Smoking/Tobacco Use Status: Never Smoking risk assessment performed?: Yes Alcohol Intake: current Alcohol Intake frequency: holidays/special occasions only Alcohol type: beer Drug use: Current Sobriety Substance use type: former substance user, crack/cocaine, heroin and painkillers Details: stopped using substances for the passed 4 years Adopted: No Caregiver/Support person: No Foster care: No Household members: none Housing: apartment Number of Children: 0 Communication Needs: None Education Level: high school Do you need help understanding health information?: Never current occupation: [employer] Pets and animals: Yes (Ally) Pets and animals: dog(s) Sexually active: No Do you think of yourself as: straight/heterosexual Current gender identity: male What is your relationship status?: How often do you talk on the phone with friends or family?: twice per week How often do you get together with friends or relatives?: never Do you belong to any clubs or organized social groups?: no Panel score (0-1 are the most socially isolated patients): 0 What type of physical activity do you participate in: walking Duration: 15-30 minutes/day Frequency: 5-6 times per week Maryam/Moravian: Yarsani Special maryam needs: No Seatbelt use: always Helmet use: Yes Helmet use: always 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
[2024-08-26 12:54] LABS: Abs Immature Grans 0.02 10^3/uL (0.0-0.06); Absolute Basophil Count 0.04 10^3/uL (0.0-0.2); Absolute Eosinophil Count 0.12 10^3/uL (0.0-0.7); Absolute Lymphocyte Count 1.46 10^3/uL (1.2-3.4); Absolute Monocyte Count 0.57 10^3/uL (0.1-0.8); Absolute Neutrophil Count 5.56 10^3/uL (1.2-6.7); Basophils % 0.5 %; Eosinophils % 1.5 %; HCT 31.7 % (40.0-50.0); HGB 10.2 g/dL (13.5-17.5); Immature Grans % 0.3 %; Lymphocytes % 18.8 %; MCH 26.8 pg (27.0-33.0); MCHC 32.2 % (32.0-36.0); MCV 83 fL (80-95); MPV 9.9 fL (8.0-11.0); Monocytes % 7.3 %; Neutrophils % 71.6 %; Platelet Count 357 10^3/uL (130-400); RDW 15.1 % (11.8-14.1); RDW-SD 45.5 fL; WBC 7.77 10^3/uL (4.4-10.8)
[2024-08-26 13:33] LABS: ALT 28 U/L (16-63); AST 26 U/L (15-37); Alkaline Phosphatase 144 U/L (46-116); BUN 18 mg/dL (7-18); Bilirubin, Total 0.1 mg/dL (0.2-1.0); CREATININE 1.5 mg/dL (0.70-1.30); Chloride 103 mmol/L (98-107); Estimated GFR 63.83 (mL/min/1.73m2); Glucose 103 mg/dL (74-106); Magnesium 1.9 mg/dL; Potassium 3.9 mmol/L (3.5-5.1); Sodium 141 mmol/L (136-145); Total Protein 7.4 g/dL (6.4-8.2)
[2024-08-26 13:49] VITALS: BP 126/69; PULSE 95; RESP 16; O2SAT 98
== END 2024-08-26 13:50 | disposition home or self-care (01) ==
LOC: ER 13:47
PROVIDERS: Emergency Provider Nurse Practitioner Family; PCP Family Medicine
DX: R25.2 Cramp and spasm (principal); R00.2 Palpitations; N18.2 Chronic kidney disease, stage 2 (mild); E78.5 Hyperlipidemia, unspecified; E89.2 Postprocedural hypoparathyroidism
CPT/HCPCS: 36415; 80053; 87426; 93005; 99284; 71046; 83735; 85025; 93010

== ENCOUNTER 2024-09-07 09:30 | Emergency (ER) | payer OTHER, SELFPAY ==
[2024-09-07] VITALS (17 sets, daily range): BP systolic 123–147; BP diastolic 53–78; PULSE 80–121; RESP 10–24; TEMP 37.2; O2SAT 90–97
--- NOTE | 2024-09-07 09:45 | RT.EKG_ITS ---
APPROVED REPORT Exam: Resting ECG Reason for Exam: Tachycardia, electrolyte abnormalities Patient Location: E HR:114 bpm ECG Measurements Heart Rate 114 AXIS ID 176 P 38 QRSd 92 QRS 49 QT 331 T 21 QTc 457 Conclusion Sinus tachycardia, rate 114 No interval abnormalities No ectopy No STEMI No significant changes from priors
--- NOTE | 2024-09-07 09:57 | ED.GENADUL_ITS ---
Discharge Plan Disposition Patient Disposition: Home Condition: Stable Discharge Details Clinical Impression: Palpitations, Severe anxiety with panic, Multiple endocrine neoplasia type I Primary Care Provider: Brendon Vivar ED Provider: Tere Adams Home Meds and New Rx's Prescriptions: No Action cyclobenzaprine 10 mg tablet 10 mg PO TID PRN (Reason: muscle spasm) Qty: 30 3RF gabapentin 300 mg capsule 300 mg PO BID Qty: 180 3RF omeprazole 40 mg capsule,delayed release(DR/EC) 40 mg PO DAILY Qty: 90 3RF clonazepam 1 mg tablet 1 mg PO BID Qty: 55 1RF methadone 10 mg/5 mL solution 100 mg PO QAM simethicone 125 mg tablet,chewable 125 mg PO QID PRN (Reason: abdominal distention) Qty: 20 3RF calcitriol 0.5 mcg capsule 1 mcg PO .COMPLEX Qty: 270 3RF Rx Instructions: 1 mcg orally t2 tabs qam and 1 tab QHS; calcium carbonate [Tums] 200 mg calcium (500 mg) tablet,chewable 2,000 mg PO BID prochlorperazine maleate 5 mg tablet 5 mg PO TID PRN (Reason: acute nausea) Qty: 30 0RF magnesium gluconate 27 mg magnesium (500 mg) tablet 13.5 mg PO TID Qty: 60 3RF promethazine 6.25 mg/5 mL syrup 12.5 mg PO Q6H PRN (Reason: cough) Qty: 120 0RF polyethylene glycol 3350 17 gram powder in packet 17 g PO BID Qty: 100 1RF prednisone 20 mg tablet 40 mg PO ONCE PRN Discharge Instructions Instructions: Anxiety, Adult ED Additional Instructions: You were seen in the emergency department today for evaluations of palpitations and tingling, and had laboratory studies today that were reassuring. Your electrolyte levels were as follows: Calcium 9.0, magnesium 1.7, potassium 3.6, and all of these are stable and not out of the range of normal and did not require repletion. You should continue to take all of your supplements as prescribed, and follow-up with any outpatient provider appointments. Additionally, we discussed the contribution of your anxiety to the symptoms and provided you with your normal morning dose of your anxiety medications. This was successful in reducing your heart rate and palpitation symptoms, and certainly can contribute to the event that you experienced this morning. I do recommend that you continue with all of your outpatient mental health supports. Thank you for allowing us to be part of your care. HPI General Mode of arrival: ambulatory . Date/Time Provider Initiated Documentation: 09/07/24 09:45 . Limitations to Documentation: no limitations . Information obtained by: patient and old records reviewed . HPI Narrative: HPI: This is a 28-year-old male patient with a past medical history most significant for MEN type I, complicated by frequent hypocalcemia and hypomagnes emia, history of panic disorder and anxiety, who is presenting for evaluation today with symptoms of palpitations and heart racing, anxiety, and a concern that his electrolytes were out of whack. The patient reports he was in his normal state of health last night, woke up this morning and felt like the world have descended on my shoulders. He states that he feels very anxious, feels his heart racing and is worried that the symptoms are due to his electrolytes. He states that he cannot think of any inciting stressors or other acute event that might have triggered his anxiety. He was able to take his morning methadone but has not taken any other morning medications, which include clonazepam which he takes twice a day. He states he has not had any recent changes in his medications, and has otherwise been feeling well. He is eating and drinking normally, not experiencing chest pain, and otherwise in his normal state of health. Exam: Gen: Awake and alert, in no apparent distress HEENT: Non-icteric sclera Neck: Supple Lungs: No apparent respiratory distress, normal respiratory effort. Lung sounds are clear and equal bilaterally without wheezing, rhonchi, rales CV: Appears well perfused, heart with tachycardic rate but regular rhythm, strong distal pulses Abdomen: Non-distended MSK: Moves 4 extremities without apparent limitation in ROM. No peripheral edema Skin: Visualized skin without rashes, cyanosis. Neuro: Normal Gait, no obvious focal deficits or facial asymmetry. Speaks in full, clear sentences. Psych: Appropriate for situation, endorses anxiety MDM: This is a 28-year-old male patient presenting for evaluation of palpitations and a sensation of anxiety and heart racing. Differential includes but is not limited to metabolic and electrolyte derangement especially given his history of same, also considered panic attack and anxiety disorder, patient with no chest pain and he is young without significant risk factors for ACS. He is tolerating oral intake and I have a lower concern for dehydration or kidney injury. No fever to suggest infectious abnormalities, no illicit substance use reported. Withdrawal syndromes were considered though it is only been a few hours since his clonazepam dose was due. We will obtain laboratory studies to include BMP and magnesium. Will obtain an EKG given his tachycardia and provide him with his morning dose of clonazepam for anxiety management. ED Course: EKG reviewed by myself, showing sinus tachycardia without ischemia or interval abnormality. No sign of arrhythmia or ectopy. I independently interpreted the laboratory studies, which show no evidence of electrolyte abnormality, kidney dysfunction. Compared to priors he has not had any significant changes. On reassessment the patient has had improvement in his anxiety symptoms, denies ongoing palpitations and his heart rate is improved to the 80s/90s. He has access to all medications in the outpatient environment that he needs, and feels well supported for management of his anxiety, which is likely a significant contributor to today's symptoms. At this time, the patient has had a full medical evaluation and is safe for discharge to home. They are hemodynamically stable, ambulatory, and tolerating PO. They are understanding of the follow-up plan and return precautions. They left our facility without incident. Tere Adams MD Related Data Home Medications ?Medication ?Instructions ?Recorded ?Confirmed calcium carbonate (Tums) 2,000 mg PO BID 02/02/23 09/07/24 methadone 10 mg/5 mL oral solution 100 mg PO QAM 06/12/23 09/07/24 prochlorperazine maleate 5 mg 5 mg PO TID PRN acute nausea #30 09/06/23 09/07/24 tablet tabs magnesium gluconate 27 mg 13.5 mg (1/2 x 27 mg magnesium 11/21/23 09/07/24 magnesium (500 mg) tablet (500 mg)) PO TID #60 tabs simethicone 125 mg chewable tablet 125 mg PO QID PRN abdominal 03/12/24 09/07/24 distention #20 tabs promethazine 6.25 mg/5 mL oral 12.5 mg (10 mL) PO Q6H PRN cough 05/15/24 09/07/24 syrup #120 mL cyclobenzaprine 10 mg tablet 10 mg PO TID PRN muscle spasm #30 06/01/24 09/07/24 tabs gabapentin 300 mg capsule 300 mg PO BID #180 caps 06/01/24 09/07/24 calcitriol 0.5 mcg capsule 1 mcg (2 x 0.5 mcg) PO .COMPLEX 06/29/24 09/07/24 #270 caps polyethylene glycol 3350 17 gram 17 g PO BID #100 ea 07/22/24 09/07/24 oral powder packet omeprazole 40 mg capsule,delayed 40 mg PO DAILY #90 caps 07/27/24 09/07/24 release clonazepam 1 mg tablet 1 mg PO BID #55 tabs 08/24/24 09/07/24 prednisone 20 mg tablet 40 mg PO ONCE PRN 08/24/24 09/07/24 Previous Rx's ?Medication ?Instructions ?Recorded prochlorperazine maleate 5 mg 5 mg PO TID PRN acute nausea #30 09/06/23 tablet tabs magnesium gluconate 27 mg 13.5 mg (1/2 x 27 mg magnesium 11/21/23 magnesium (500 mg) tablet (500 mg)) PO TID #60 tabs simethicone 125 mg chewable tablet 125 mg PO QID PRN abdominal 03/12/24 distention #20 tabs promethazine 6.25 mg/5 mL oral 12.5 mg (10 mL) PO Q6H PRN cough 05/15/24 syrup #120 mL cyclobenzaprine 10 mg tablet 10 mg PO TID PRN muscle spasm #30 06/01/24 tabs gabapentin 300 mg capsule 300 mg PO BID #180 caps 06/01/24 calcitriol 0.5 mcg capsule 1 mcg (2 x 0.5 mcg) PO .COMPLEX 06/29/24 #270 caps polyethylene glycol 3350 17 gram 17 g PO BID #100 ea 07/22/24 oral powder packet omeprazole 40 mg capsule,delayed 40 mg PO DAILY #90 caps 07/27/24 release clonazepam 1 mg tablet 1 mg PO BID #55 tabs 08/24/24 Allergies Allergy/AdvReac Type Severity Reaction Status Date / Time codeine Allergy Intermediate pass out Verified 09/07/24 09:39 Penicillins Allergy Skin Rash Verified 09/07/24 09:39 marijuana (cannabis) AdvReac Severe Paranoia Verified 09/07/24 09:39 amoxicillin AdvReac Intermediate Nausea Verified 09/07/24 09:39 dextromethorphan (From AdvReac Intermediate got Verified 09/07/24 09:39 NyQuil) really hot and sweaty doxylamine (From NyQuil) AdvReac Intermediate got Verified 09/07/24 09:39 really hot and sweaty pseudoephedrine (From NyQuil) AdvReac Intermediate got Verified 09/07/24 09:39 really hot and sweaty General Stated Complaint: [facility]Medical ADRIANA: 3 Course Vital Signs Vital signs: Vital Signs Temperature 37.2 C 09/07/24 09:34 Pulse 121 H 09/07/24 09:34 Blood Pressure 147/77 H 09/07/24 09:34 Pulse Oximetry 97 09/07/24 09:34 Temperature 37.2 C 09/07/24 09:38 Temperature Source Oral 09/07/24 09:38 Pulse 121 H 09/07/24 09:38 Blood Pressure 147/77 H 09/07/24 09:38 Blood Pressure Position Sitting 09/07/24 09:38 Pulse Oximetry 97 09/07/24 09:38 Oxygen Delivery Method Room Air 09/07/24 09:38 Oxygen Flow Rate 0 09/07/24 09:38 Pain Level 2 09/07/24 09:38 Medical Decision Making Quality:SDOH Health Related Social Needs: Health related social needs problems with daily activi ties (Z73.9) PFSH All Active Problems (Updated 09/07/24 @ 10:48 by Tere Adams MD) Palpitations (Acute) Calf cramp (Acute) Cubital tunnel syndrome (Acute) Carpal tunnel syndrome of right wrist (Acute) Microcytic anemia (Acute) Dizziness (Acute) Viral illness (Acute) Chest pain (Acute) History of deep vein thrombosis (Acute) Pain of left calf (Acute) Fatty liver (Acute) IBS (irritable bowel syndrome) (Chronic) Pain of right calf (Acute) Obesity (Chronic) Migraine with aura (Acute) Insect bite of leg, right (Acute) Testicle lump (Acute) Hamstring tendinitis of left thigh (Acute) Pes anserine bursitis (Acute) Hypernatremia (Acute) Cervical radiculopathy (Acute) Left-sided Flower's palsy (Acute) Constipation (Acute) Grief reaction (Chronic) Opiate dependence, continuous (Acute) 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 Possible 2' Methadone, Clnzpm (?). Surg eval (+)/No further action. History of electrolyte imbalance (Acute) Neck pain on left side (Acute) with shoulder, upper back pain.. torticollis, radiating into left hip/leg Pulmonary nodule 1 cm or greater in diameter (Chronic) Therapeutic opioid induced constipation (Acute) Sphincter of Oddi dysfunction (Chronic) Abnormal CT scan, kidney (Acute) Intrahepatic bile duct dilation (Acute) Common bile duct dilatation (Chronic) Has been dilated for quite some time, now more-so. Normal LFTs. Known gallstones. Iatrogenic hypocalcemia (Acute) Multiple endocrine neoplasia type I (Chronic) Depression (Chronic) Hypocalcemia (Chronic) Elevated parathyroid hormone (Acute) Family history of coronary arteriosclerosis (Chronic) Father of MS at 50, mother had MS at 42 Severe anxiety with panic (Chronic) Medical History Urinary tract infection CKD (chronic kidney disease) stage 2, GFR 60-89 ml/min GFR 64-65, with Hx FLORESITA and GFR < 45 Primary hyperparathyroidism Complex medical condition Serious electrolyte imbalances, with gynecomastia, possible MEN Dx, CKD and anemia with baseline anxiety and Hx PTSD. Hypocalcemia Anxiety Depression Hyperlipidemia Family history of multiple endocrine neoplasia, type 1 PTSD (post-traumatic stress disorder) Per pt. states no triggers at this time. Surgical History History of laparoscopic cholecystectomy (~11/2023) H/O parathyroidectomy Family History Mother Anxiety Asthma Depression Sister Anxiety Depression Father Cancer lung & stomach Depression Diabetes Hypertension MEN 1 (multiple endocrine neoplasia) Social History Smoking/Tobacco Use Status: Never Smoking risk assessment performed?: Yes Alcohol Intake: current Alcohol Intake frequency: holidays/special occasions only Alcohol type: beer Drug use: Current Sobriety Substance use type: former substance user, crack/cocaine, heroin and painkillers Details: stopped using substances for the passed 4 years Adopted: No Caregiver/Support person: No Foster care: No Household members: none Housing: apartment Number of Children: 0 Communication Needs: None Education Level: high school Do you need help understanding health information?: Never current occupation: [employer] Pets and animals: Yes (Ally) Pets and animals: dog(s) Sexually active: No Do you think of yourself as: straight/heterosexual Current gender identity: male What is your relationship status?: How often do you talk on the phone with friends or family?: twice per week How often do you get together with friends or relatives?: never Do you belong to any clubs or organized social groups?: no Panel score (0-1 are the most socially isolated patients): 0 What type of physical activity do you participate in: walking Duration: 15-30 minutes/day Frequency: 5-6 times per week Maryam/Anabaptist: Mormon Special maryam needs: No Seatbelt use: always Helmet use: Yes Helmet use: always Drive intox or ride w/int[employer] truck driver: No Do you feel safe at home: Yes Do you feel safe in your relationship?: Yes
[2024-09-07] MEDS: clonazePAM 1 MG TAB PO (10:03)
[2024-09-07] MEDS: Normal Saline Flush 10 ML SYR IVP (10:03)
[2024-09-07 10:28] LABS: Anion Gap 2.6 mmol/L (3-11); BUN 16 mg/dL (7-18); CO2 35.4 mmol/L (21.0-32.0); CREATININE 1.6 mg/dL (0.70-1.30); Chloride 103 mmol/L (98-107); Estimated GFR 59.08 (mL/min/1.73m2); Glucose 82 mg/dL (74-106); Magnesium 1.7 mg/dL; Potassium 3.6 mmol/L (3.5-5.1); Sodium 141 mmol/L (136-145)
== END 2024-09-07 11:13 | disposition home or self-care (01) ==
PROVIDERS: Emergency Provider Emergency Medicine; PCP Family Medicine
DX: R00.2 Palpitations (principal); F41.8 Other specified anxiety disorders; F43.0 Acute stress reaction; N18.2 Chronic kidney disease, stage 2 (mild); E78.5 Hyperlipidemia, unspecified; E89.2 Postprocedural hypoparathyroidism; E31.21 Multiple endocrine neoplasia [MEN] type I
CPT/HCPCS: 36415; 80048; 93005; 99284; 83735; 93010

== ENCOUNTER 2024-09-10 18:56 | Emergency (ER) | payer OTHER, SELFPAY ==
[2024-09-10 19:00] VITALS: BP 128/87; PULSE 109; RESP 18; TEMP 37.1; O2SAT 98
--- NOTE | 2024-09-10 19:27 | W.ED.GENAD ---
Discharge Plan Disposition Patient Disposition: Home Discharge Details Clinical Impression: Lower back pain Primary Care Provider: Brendon Vivar ED Provider: Saranya Estrada Home Meds and New Rx's Prescriptions: No Action cyclobenzaprine 10 mg tablet 10 mg PO TID PRN (Reason: muscle spasm) Qty: 30 3RF gabapentin 300 mg capsule 300 mg PO BID Qty: 180 3RF omeprazole 40 mg capsule,delayed release(DR/EC) 40 mg PO DAILY Qty: 90 3RF clonazepam 1 mg tablet 1 mg PO BID Qty: 55 1RF methadone 10 mg/5 mL solution 100 mg PO QAM simethicone 125 mg tablet,chewable 125 mg PO QID PRN (Reason: abdominal distention) Qty: 20 3RF calcitriol 0.5 mcg capsule 1 mcg PO .COMPLEX Qty: 270 3RF Rx Instructions: 1 mcg orally t2 tabs qam and 1 tab QHS; calcium carbonate [Tums] 200 mg calcium (500 mg) tablet,chewable 2,000 mg PO BID prochlorperazine maleate 5 mg tablet 5 mg PO TID PRN (Reason: acute nausea) Qty: 30 0RF magnesium gluconate 27 mg magnesium (500 mg) tablet 13.5 mg PO TID Qty: 60 3RF polyethylene glycol 3350 17 gram powder in packet 17 g PO BID Qty: 100 1RF Discharge Instructions Additional Instructions: Please call [facility] first thing Friday morning to schedule follow-up appointment. I recommend discussing with your PCP monitoring of your left kidney lesions that have been noticed on previous CT scans. You may continue to use Tylenol and lidocaine patches for discomfort. I recommending to do gentle stretching at home. Return to emergency care if you develop new fever/chills, nausea/vomiting, worsening abdominal/flank pain, blood in your urine/discomfort with urination/inability to urinate, or if you are very worried and need to be rechecked again immediately Referrals: Brendon Vivar DO [Primary Care Provider] - HPI General Date/Time Provider Initiated Documentation: 09/10/24 19:25. HPI Narrative: Pedro Pablo is a 28 year old male who presents to the emergency department today for evaluation of L flank pain. He reports that he for started noticing yesterday, has waxed and waned, but has been constantly present since onset; he only is not bothered by it when he is sleeping. Is described as a dull aching pain deep in the left lower side of his back. It is not reproducible with palpation; certain positions such as laying flat on his back continue do make it worse. He did notice his urine appeared yellow and cloudy here in the ED, no other urinary complaints. Denies fever/chills, nausea/vomiting, change in appetite, unusual weight loss, bloating, change in bowel or bladder function, testicular pain or swelling, penile discharge, weakness/numbness in legs, saddle anesthesia. He is not sexually active, denies h/o STI. Past medical history is significant for MEN type I, electrolyte imbalances, CKD stage II. He does have a history of kidney stones and pyelonephritis in the past. Surgical history significant for gallbladder removal. Physical exam reassuring. Pedro Pablo is alert and oriented, in no acute distress. Moist mucous membranes. Abdomen soft, nondistended, nontender to palpation. Normoactive bowel sounds. No CVA tenderness. No flank ecchymosis or rashes. Pain is not reproducible to L flank with palpation, however he does have some tenderness to L buttock with palpation. Painless ROM of legs; movement of legs does not exacerabate pain. D/dx includes but is not limited to: pyelonephritis, kidney stones, neoplasm, muscle strain. No red flags concerning for acute appendicitis or other acute intraabdominal infection at this time. I independently interpreted the following tests: CBC, CMP, lipase all reassuring. While in the emergency department, Pedro Pablo received tylenol for discomfort with good improvement of pain. Lidocaine patch given for L buttock pain. I did review previous CT images from 08/05/2024, per CT report patient has 3 hypodensity within the left kidney noted measuring up to 1.8 cm, these appear to be too dense to be simple cyst and either represent hemorrhagic cyst or possible abscess; neoplasm cannot be excluded. This is noted to be unchanged from previous. I did discuss these incidental findings with Pedro Pablo, he says that he has talked to his PCP about this. Recommend continued monitoring. Overall workup today reassuring. Likely muscular discomfort, Pedro Pablo reports that he recently got a new recliner that he has been sleeping in, wonders if this has been causing lower back discomfort. I did discuss with Pedro Pablo risks versus benefits of CT scan. As his labs are reassuring and pain has been greatly relieved with Tylenol, unlikely acute intra-abdominal process. I discussed with him the risks of radiation, he is comfortable with holding off on CT scan for now and monitoring symptoms at home; he plans on returning if any change. Reviewed discharge instructions with patient, including symptomatic management and red flags indicating need for return to emergency care Related Data Home Medications ?Medication ?Instructions ?Recorded ?Confirmed calcium carbonate (Tums) 2,000 mg PO BID 02/02/23 09/10/24 methadone 10 mg/5 mL oral solution 100 mg PO QAM 06/12/23 09/10/24 prochlorperazine maleate 5 mg 5 mg PO TID PRN acute nausea #30 09/06/23 09/10/24 tablet tabs magnesium gluconate 27 mg 13.5 mg (1/2 x 27 mg magnesium 11/21/23 09/10/24 magnesium (500 mg) tablet (500 mg)) PO TID #60 tabs simethicone 125 mg chewable tablet 125 mg PO QID PRN abdominal 03/12/24 09/10/24 distention #20 tabs cyclobenzaprine 10 mg tablet 10 mg PO TID PRN muscle spasm #30 06/01/24 09/10/24 tabs gabapentin 300 mg capsule 300 mg PO BID #180 caps 06/01/24 09/10/24 calcitriol 0.5 mcg capsule 1 mcg (2 x 0.5 mcg) PO .COMPLEX 06/29/24 09/10/24 #270 caps polyethylene glycol 3350 17 gram 17 g PO BID #100 ea 07/22/24 09/10/24 oral powder packet omeprazole 40 mg capsule,delayed 40 mg PO DAILY #90 caps 07/27/24 09/10/24 release clonazepam 1 mg tablet 1 mg PO BID #55 tabs 08/24/24 09/10/24 Previous Rx's ?Medication ?Instructions ?Recorded prochlorperazine maleate 5 mg 5 mg PO TID PRN acute nausea #30 09/06/23 tablet tabs magnesium gluconate 27 mg 13.5 mg (1/2 x 27 mg magnesium 11/21/23 magnesium (500 mg) tablet (500 mg)) PO TID #60 tabs simethicone 125 mg chewable tablet 125 mg PO QID PRN abdominal 03/12/24 distention #20 tabs cyclobenzaprine 10 mg tablet 10 mg PO TID PRN muscle spasm #30 06/01/24 tabs gabapentin 300 mg capsule 300 mg PO BID #180 caps 06/01/24 calcitriol 0.5 mcg capsule 1 mcg (2 x 0.5 mcg) PO .COMPLEX 06/29/24 #270 caps polyethylene glycol 3350 17 gram 17 g PO BID #100 ea 07/22/24 oral powder packet omeprazole 40 mg capsule,delayed 40 mg PO DAILY #90 caps 07/27/24 release clonazepam 1 mg tablet 1 mg PO BID #55 tabs 08/24/24 Allergies Allergy/AdvReac Type Severity Reaction Status Date / Time codeine Allergy Intermediate pass out Verified 09/10/24 19:02 Penicillins Allergy Skin Rash Verified 09/10/24 19:02 marijuana (cannabis) AdvReac Severe Paranoia Verified 09/10/24 19:02 amoxicillin AdvReac Intermediate Nausea Verified 09/10/24 19:02 dextromethorphan (From AdvReac Intermediate got Verified 09/10/24 19:02 NyQuil) really hot and sweaty doxylamine (From NyQuil) AdvReac Intermediate got Verified 09/10/24 19:02 really hot and sweaty pseudoephedrine (From NyQuil) AdvReac Intermediate got Verified 09/10/24 19:02 really hot and sweaty General Stated Complaint: Nk/Back Pain ADRIANA: 3 Review of Systems Narrative: see HPI Exam Const General: cooperative, healthy appearing, comfortable, no acute distress and well developed Orientation: alert and oriented x3 Resp Effort & Inspection: normal respiratory effort and able to speak in complete sentences GI Inspection: normal to inspection, no abdominal wall ecchymosis and non-distended Palpation: soft and nontender Auscultation: normal bowel sounds Back/Spine/Pelvis Back: no CVA tenderness Thoracic/Lumbar Spine: thoracic and lumbar spine normal to inspection Pelvis: buttock tenderness on the left Skin General skin exam: no rashes or lesions noted Trauma: no lacerations or abrasions Course Vital Signs Vital signs: Vital Signs Temperature 37.1 C 09/10/24 19:00 Pulse 109 H 09/10/24 19:00 Respiratory Rate 18 09/10/24 19:00 Blood Pressure 128/87 09/10/24 19:00 Pulse Oximetry 98 09/10/24 19:00 Temperature 37.1 C 09/10/24 19:00 Pulse 109 H 09/10/24 19:00 Respiratory Rate 18 09/10/24 19:00 Blood Pressure 128/87 09/10/24 19:00 Pulse Oximetry 98 09/10/24 19:00 Oxygen Delivery Method Room Air 09/10/24 19:00 Oxygen Flow Rate 0 09/10/24 19:00 Pain Level 9 09/10/24 19:00 Medical Decision Making Quality:SDOH Health Related Social Needs: Health related social needs problems with daily activities (Z73.9) PFSH All Active Problems (Updated 09/10/24 @ 20:30 by Saranya Avila) Lower back pain (Acute) Palpitations (Acute) Calf cramp (Acute) Cubital tunnel syndrome (Acute) Carpal tunnel syndrome of right wrist (Acute) Microcytic anemia (Acute) Dizziness (Acute) Viral illness (Acute) Chest pain (Acute) Fatty liver (Acute) IBS (irritable bowel syndrome) (Chronic) Pain of right calf (Acute) Obesity (Chronic) Migraine with aura (Acute) Insect bite of leg, right (Acute) Testicle lump (Acute) Hamstring tendinitis of left thigh (Acute) Pes anserine bursitis (Acute) Hypernatremia (Acute) Cervical radiculopathy (Acute) Left-sided Flower's palsy (Acute) Constipation (Acute) Grief reaction (Chronic) Opiate dependence, continuous (Acute) 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 Possible 2' Methadone, Clnzpm (?). Surg eval (+)/No further action. History of electrolyte imbalance (Acute) Neck pain on left side (Acute) with shoulder, upper back pain.. torticollis, radiating into left hip/leg Pulmonary nodule 1 cm or greater in diameter (Chronic) Therapeutic opioid induced constipation (Acute) Sphincter of Oddi dysfunction (Chronic) Abnormal CT scan, kidney (Acute) Intrahepatic bile duct dilation (Acute) Common bile duct dilatation (Chronic) Has been dilated for quite some time, now more-so. Normal LFTs. Known gallstones. Iatrogenic hypocalcemia (Acute) Multiple endocrine neoplasia type I (Chronic) Depression (Chronic) Hypocalcemia (Chronic) Elevated parathyroid hormone (Acute) Family history of coronary arteriosclerosis (Chronic) Father of TX at 50, mother had TX at 42 Severe anxiety with panic (Chronic) Medical History Urinary tract infection CKD (chronic kidney disease) stage 2, GFR 60-89 ml/min GFR 64-65, with Hx FLORESITA and GFR < 45 Primary hyperparathyroidism Complex medical condition Serious electrolyte imbalances, with gynecomastia, possible MEN Dx, CKD and anemia with baseline anxiety and Hx PTSD. Hypocalcemia Anxiety Depression Hyperlipidemia Family history of multiple endocrine neoplasia, type 1 PTSD (post-traumatic stress disorder) Per pt. states no triggers at this time. Surgical History History of laparoscopic cholecystectomy (~11/2023) H/O parathyroidectomy Family History Mother Anxiety Asthma Depression Sister Anxiety Depression Father Cancer lung & stomach Depression Diabetes Hypertension MEN 1 (multiple endocrine neoplasia) Social History Smoking/Tobacco Use Status: Never Smoking risk assessment performed?: Yes Alcohol Intake: current Alcohol Intake frequency: holidays/special occasions only Alcohol type: beer Drug use: Current Sobriety Substance use type: former substance user, crack/cocaine, heroin and painkillers Details: stopped using substances for the passed 4 years Adopted: No Caregiver/Support person: No Foster care: No Household members: none Housing: apartment Number of Children: 0 Communication Needs: None Education Level: high school Do you need help understanding health information?: Never current occupation: [employer] Pets and animals: Yes (Ally) Pets and animals: dog(s) Sexually active: No Do you think of yourself as: straight/heterosexual Current gender identity: male What is your relationship status?: How often do you talk on the phone with friends or family?: twice per week How often do you get together with friends or relatives?: never Do you belong to any clubs or organized social groups?: no Panel score (0-1 are the most socially isolated patients): 0 What type of physical activity do you participate in: walking Duration: 15-30 minutes/day Frequency: 5-6 times per week Mayram/Roman Catholic: Holiness Special maryam needs: No Seatbelt use: always Helmet use: Yes Helmet use: always Drive intox or ride w/intox special client bus driver: No Do you feel safe at home: Yes Do you feel safe in your relationship?: Yes
[2024-09-10] MEDS: Acetaminophen 500 MG TAB 1000 MG PO (19:39)
[2024-09-10 19:45] LABS: Abs Immature Grans 0.02 10^3/uL (0.0-0.06); Absolute Basophil Count 0.04 10^3/uL (0.0-0.2); Absolute Eosinophil Count 0.18 10^3/uL (0.0-0.7); Absolute Lymphocyte Count 1.78 10^3/uL (1.2-3.4); Absolute Monocyte Count 0.89 10^3/uL (0.1-0.8); Absolute Neutrophil Count 5.39 10^3/uL (1.2-6.7); Basophils % 0.5 %; Eosinophils % 2.2 %; HCT 34.7 % (40.0-50.0); HGB 10.8 g/dL (13.5-17.5); Immature Grans % 0.2 %; Lymphocytes % 21.4 %; MCH 25.8 pg (27.0-33.0); MCHC 31.1 % (32.0-36.0); MCV 83 fL (80-95); MPV 9.8 fL (8.0-11.0); Monocytes % 10.7 %; Platelet Count 370 10^3/uL (130-400); RBC 4.18 10^6/uL (4.36-5.78); RDW-SD 45.5 fL
[2024-09-10 19:48] VITALS: BP 128/87; PULSE 109; RESP 18; TEMP 37.1; O2SAT 98
[2024-09-10 19:49] LABS: Bilirubin Negative (Negative); Blood Negative (Negative); Clarity Clear (Clear); Glucose Negative (Negative); Ketones Negative (Negative); Leukocyte Esterase Trace (Negative); Nitrite Negative (Negative); Urobilinogen 0.2 mg/dL (Up to 0.2)
[2024-09-10 20:07] LABS: Bacteria Few HPF (Negative); C & S Indicated? No; Casts Negative LPF (Negative); Crystals Moderate Amorphous HPF (Negative); Epithelial Cells Few HPF (Negative); Mucus Negative (Negative); RBC Negative HPF (0-2)
[2024-09-10 20:10] LABS: ALT 38 U/L (16-63); AST 32 U/L (15-37); Albumin 3.1 g/dL (3.4-5.0); Alkaline Phosphatase 162 U/L (46-116); Anion Gap 5.2 mmol/L (3-11); BUN 18 mg/dL (7-18); Bilirubin, Total 0.3 mg/dL (0.2-1.0); CO2 33.8 mmol/L (21.0-32.0); CREATININE 1.6 mg/dL (0.70-1.30); Calcium 8.5 mg/dL (8.5-10.1); Chloride 102 mmol/L (98-107); Estimated GFR 59.08 (mL/min/1.73m2); Glucose 91 mg/dL (74-106); Lipase 26 U/L (<78); Sodium 141 mmol/L (136-145); Total Protein 7.7 g/dL (6.4-8.2)
[2024-09-10] MEDS: Lidocaine 5% Patch 1 PATCH TP (20:37)
== END 2024-09-10 20:40 | disposition home or self-care (01) ==
PROVIDERS: Emergency Provider Nurse Practitioner Family; PCP Family Medicine
DX: M54.50 Low back pain, unspecified (principal); N18.2 Chronic kidney disease, stage 2 (mild); E78.5 Hyperlipidemia, unspecified; E89.2 Postprocedural hypoparathyroidism; Z90.49 Acquired absence of other specified parts of digestive tract
CPT/HCPCS: 80053; 83690; 99283; 81003; 81015; 85025

== ENCOUNTER 2024-09-12 11:04 | Emergency (ER) | payer OTHER, SELFPAY ==
[2024-09-12 11:15] VITALS: BP 126/79; PULSE 111; RESP 20; TEMP 36.5; O2SAT 95
[2024-09-12 11:51] VITALS: RESP 14
[2024-09-12 11:52] VITALS: BP 126/79; PULSE 111; RESP 20; TEMP 36.5; O2SAT 95
--- NOTE | 2024-09-12 12:11 | W.ED.GENAD ---
Discharge Plan Disposition Patient Disposition: Home Condition: Stable Discharge Details Clinical Impression: Leg pain, right Primary Care Provider: Brendon Vivar ED Provider: Jeovany Elias Home Meds and New Rx's Prescriptions: No Action cyclobenzaprine 10 mg tablet 10 mg PO TID PRN (Reason: muscle spasm) Qty: 30 3RF gabapentin 300 mg capsule 300 mg PO BID Qty: 180 3RF omeprazole 40 mg capsule,delayed release(DR/EC) 40 mg PO DAILY Qty: 90 3RF clonazepam 1 mg tablet 1 mg PO BID Qty: 55 1RF methadone 10 mg/5 mL solution 100 mg PO QAM simethicone 125 mg tablet,chewable 125 mg PO QID PRN (Reason: abdominal distention) Qty: 20 3RF calcitriol 0.5 mcg capsule 1 mcg PO .COMPLEX Qty: 270 3RF Rx Instructions: 1 mcg orally t2 tabs qam and 1 tab QHS; calcium carbonate [Tums] 200 mg calcium (500 mg) tablet,chewable 2,000 mg PO BID prochlorperazine maleate 5 mg tablet 5 mg PO TID PRN (Reason: acute nausea) Qty: 30 0RF magnesium gluconate 27 mg magnesium (500 mg) tablet 13.5 mg PO TID Qty: 60 3RF polyethylene glycol 3350 17 gram powder in packet 17 g PO BID Qty: 100 1RF Discharge Instructions Instructions: Leg Pain (ED) Additional Instructions: Your leg does not show convincing evidence at this time of a large DVT, an outpatient ultrasound has been ordered, contact radiology tomorrow to schedule this. Discharge Orders Other Ambulatory Orders: US lower extremity venous RT (Routine) Timeframe: 10 Day Facility: [facility] - Location: DIAGNOSTIC IMAGING Ordered By: Jeovany Elias Discharge Data Discharge Date/Time-TO BE ENTERED AT DEPARTURE: 09/12/24 11:52 HPI General Date/Time Provider Initiated Documentation: 09/12/24 11:24. Limitations to Documentation: no limitations. Information obtained by: patient and old records reviewed. HPI Narrative: 28-year-old gentleman with multiple medical comorbidities including anxiety regarding his health conditions, MEN 1, presents for evaluation of right calf pain. He reports onset of symptoms on , 4 days ago, when he woke up. He states that that night he had slept in the recliner at that the end of the recliner was pressing into his calf and the rest of his foot was hanging off in the chair. He reports that his leg is swollen red and warm. He states that he feels a very painful bump there. He states that he has had 6 blood clots on that leg his last was in March, but he is not on anticoagulation. Related Data Home Medications ?Medication ?Instructions ?Recorded ?Confirmed calcium carbonate (Tums) 2,000 mg PO BID 02/02/23 09/12/24 methadone 10 mg/5 mL oral solution 100 mg PO QAM 06/12/23 09/12/24 prochlorperazine maleate 5 mg 5 mg PO TID PRN acute nausea #30 09/06/23 09/12/24 tablet tabs magnesium gluconate 27 mg 13.5 mg (1/2 x 27 mg magnesium 11/21/23 09/12/24 magnesium (500 mg) tablet (500 mg)) PO TID #60 tabs simethicone 125 mg chewable tablet 125 mg PO QID PRN abdominal 03/12/24 09/12/24 distention #20 tabs cyclobenzaprine 10 mg tablet 10 mg PO TID PRN muscle spasm #30 06/01/24 09/12/24 tabs gabapentin 300 mg capsule 300 mg PO BID #180 caps 06/01/24 09/12/24 calcitriol 0.5 mcg capsule 1 mcg (2 x 0.5 mcg) PO .COMPLEX 06/29/24 09/12/24 #270 caps polyethylene glycol 3350 17 gram 17 g PO BID #100 ea 07/22/24 09/12/24 oral powder packet omeprazole 40 mg capsule,delayed 40 mg PO DAILY #90 caps 07/27/24 09/12/24 release clonazepam 1 mg tablet 1 mg PO BID #55 tabs 08/24/24 09/12/24 Previous Rx's ?Medication ?Instructions ?Recorded prochlorperazine maleate 5 mg 5 mg PO TID PRN acute nausea #30 09/06/23 tablet tabs magnesium gluconate 27 mg 13.5 mg (1/2 x 27 mg magnesium 11/21/23 magnesium (500 mg) tablet (500 mg)) PO TID #60 tabs simethicone 125 mg chewable tablet 125 mg PO QID PRN abdominal 03/12/24 distention #20 tabs cyclobenzaprine 10 mg tablet 10 mg PO TID PRN muscle spasm #30 06/01/24 tabs gabapentin 300 mg capsule 300 mg PO BID #180 caps 06/01/24 calcitriol 0.5 mcg capsule 1 mcg (2 x 0.5 mcg) PO .COMPLEX 06/29/24 #270 caps polyethylene glycol 3350 17 gram 17 g PO BID #100 ea 07/22/24 oral powder packet omeprazole 40 mg capsule,delayed 40 mg PO DAILY #90 caps 07/27/24 release clonazepam 1 mg tablet 1 mg PO BID #55 tabs 08/24/24 Allergies Allergy/AdvReac Type Severity Reaction Status Date / Time codeine Allergy Intermediate pass out Verified 09/12/24 11:19 Penicillins Allergy Skin Rash Verified 09/12/24 11:19 marijuana (cannabis) AdvReac Severe Paranoia Verified 09/12/24 11:19 amoxicillin AdvReac Intermediate Nausea Verified 09/12/24 11:19 dextromethorphan (From AdvReac Intermediate got Verified 09/12/24 11:19 NyQuil) really hot and sweaty doxylamine (From NyQuil) AdvReac Intermediate got Verified 09/12/24 11:19 really hot and sweaty pseudoephedrine (From NyQuil) AdvReac Intermediate got Verified 09/12/24 11:19 really hot and sweaty General Stated Complaint: Vascular ADRIANA: 3 Exam Narrative Exam Narrative: Review of Systems: All systems reviewed & are unremarkable except as noted in HPI and below Well-developed, no acute distress NCAT Mild tachycardia, baseline Unlabored respiratory effort Bilateral lower extremities warm and well-perfused without swelling or asymmetry, bilateral 2+ DP pulse, there is no erythema or warmth of the right calf, patient does endorse tenderness with palpation Course Vital Signs Vital signs: Vital Signs Temperature 36.5 C 09/12/24 11:15 Pulse 111 H 09/12/24 11:15 Respiratory Rate 20 09/12/24 11:15 Blood Pressure 126/79 09/12/24 11:15 Pulse Oximetry 95 09/12/24 11:15 Temperature 36.5 C 09/12/24 11:52 Pulse 111 H 09/12/24 11:52 Respiratory Rate 20 09/12/24 11:52 Respiratory Effort Normal, Non-Labored 09/12/24 11:51 Respiratory Depth Normal 09/12/24 11:51 Respiratory Pattern Normal 09/12/24 11:51 Blood Pressure 126/79 09/12/24 11:52 Blood Pressure Position Sitting 09/12/24 11:15 Pulse Oximetry 95 09/12/24 11:52 Oxygen Delivery Method Room Air 09/12/24 11:15 Oxygen Flow Rate 0 09/12/24 11:15 Pain Level 0 09/12/24 11:52 Medical Decision Making Evaluation of right lower extremity pain. Patient is concerned about a possible blood clot in his leg as he states that he has had 6 blood clots before. I am not aware of any prior DVTs. I have reviewed his medical record And he has had multiple ultrasounds, but I have not found on that has been positive for DVT. Clinically the patient does not have any evidence of a DVT. Patient is aware that we do not have ultrasound capabilities on the weekend. I do not feel that anticoagulation is necessary at this time given his lack of clinical findings. However an outpatient ultrasound has been ordered patient will follow-up for this study. Quality:SDOH Health Related Social Needs: Health related social needs problems with daily activities (Z73.9) PFSH All Active Problems (Updated 09/12/24 @ 11:42 by Jeovany Elias MD) Leg pain, right (Acute) Lower back pain (Acute) Palpitations (Acute) Calf cramp (Acute) Cubital tunnel syndrome (Acute) Carpal tunnel syndrome of right wrist (Acute) Microcytic anemia (Acute) Dizziness (Acute) Viral illness (Acute) Chest pain (Acute) Fatty liver (Acute) IBS (irritable bowel syndrome) (Chronic) Pain of right calf (Acute) Obesity (Chronic) Migraine with aura (Acute) Insect bite of leg, right (Acute) Testicle lump (Acute) Hamstring tendinitis of left thigh (Acute) Pes anserine bursitis (Acute) Hypernatremia (Acute) Cervical radiculopathy (Acute) Left-sided Flower's palsy (Acute) Constipation (Acute) Grief reaction (Chronic) Opiate dependence, continuous (Acute) 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 Possible 2' Methadone, Clnzpm (?). Surg eval (+)/No further action. History of electrolyte imbalance (Acute) Neck pain on left side (Acute) with shoulder, upper back pain.. torticollis, radiating into left hip/leg Pulmonary nodule 1 cm or greater in diameter (Chronic) Therapeutic opioid induced constipation (Acute) Sphincter of Oddi dysfunction (Chronic) Abnormal CT scan, kidney (Acute) Intrahepatic bile duct dilation (Acute) Common bile duct dilatation (Chronic) Has been dilated for quite some time, now more-so. Normal LFTs. Known gallstones. Iatrogenic hypocalcemia (Acute) Multiple endocrine neoplasia type I (Chronic) Depression (Chronic) Hypocalcemia (Chronic) Elevated parathyroid hormone (Acute) Family history of coronary arteriosclerosis (Chronic) Father of VA at 50, mother had VA at 42 Severe anxiety with panic (Chronic) Medical History Urinary tract infection CKD (chronic kidney disease) stage 2, GFR 60-89 ml/min GFR 64-65, with Hx FLORESITA and GFR < 45 Primary hyperparathyroidism Complex medical condition Serious electrolyte imbalances, with gynecomastia, possible MEN Dx, CKD and anemia with baseline anxiety and Hx PTSD. Hypocalcemia Anxiety Depression Hyperlipidemia Family history of multiple endocrine neoplasia, type 1 PTSD (post-traumatic stress disorder) Per pt. states no triggers at this time. Surgical History History of laparoscopic cholecystectomy (~11/2023) H/O parathyroidectomy Family History Mother Anxiety Asthma Depression Sister Anxiety Depression Father Cancer lung & stomach Depression Diabetes Hypertension MEN 1 (multiple endocrine neoplasia) Social History Smoking/Tobacco Use Status: Never Smoking risk assessment performed?: Yes Alcohol Intake: current Alcohol Intake frequency: holidays/special occasions only Alcohol type: beer Drug use: Current Sobriety Substance use type: former substance user, crack/cocaine, heroin and painkillers Details: stopped using substances for the passed 4 years Adopted: No Caregiver/Support person: No Foster care: No Household members: none Housing: apartment Number of Children: 0 Communication Needs: None Education Level: high school Do you need help understanding health information?: Never current occupation: [employer] Pets and animals: Yes (Ally) Pets and animals: dog(s) Sexually active: No Do you think of yourself as: straight/heterosexual Current gender identity: male What is your relationship status?: How often do you talk on the phone with friends or family?: twice per week How often do you get together with friends or relatives?: never Do you belong to any clubs or organized social groups?: no Panel score (0-1 are the most socially isolated patients): 0 What type of physical activity do you participate in: walking Duration: 15-30 minutes/day Frequency: 5-6 times per week Maryam/Congregation: Church Special maryam needs: No Seatbelt use: always Helmet use: Yes Helmet use: always Drive intox or ride w/intox inventory associate and driver: No Do you feel safe at home: Yes Do you feel safe in your relationship?: Yes PAWSS Have you Been Recently Intoxicated or Drunk Within the Last 30 days?: No Have you Ever Experienced Previous Episodes of Alcohol Withdrawal?: No Have you ever Experienced Withdrawal Seizures?: No Have you ever Experienced Delirium Tremens(DT)s?: No Have you ever undergone Alcohol Rehabilitation Treatment (i.e, inpt ot outpatient treatment programs)?: No Have you ever Experienced Blackouts?: No Have you ever Combined Alcohol with other Downers within the last 90 days?: No Have you ever Combined Alcohol with any other Substance of Abuse during the last 90 days?: No Positive Blood Alcohol level on Presentation? [PCS.BAL]: No Evidence of Increased Autonomic Activity (i.e. HR>120, tremor, sweating, agitation, nausea)?: No Result: 0
--- NOTE | 2024-09-13 08:53 | NUR.NOTE ---
Accessed Pt chart to check if there was an Ultrasound ordered. There is a request for Pt to call and schedule. Information given to current provider to ask if they will write the order for DI.Nursing Note:
== END 2024-09-12 11:52 | disposition home or self-care (01) ==
PROVIDERS: Emergency Provider Emergency Medicine; PCP Family Medicine
DX: M79.661 Pain in right lower leg (principal); E89.2 Postprocedural hypoparathyroidism; N18.2 Chronic kidney disease, stage 2 (mild); Z90.49 Acquired absence of other specified parts of digestive tract
CPT/HCPCS: 99283

== ENCOUNTER 2024-09-27 17:43 | Emergency (ER) | payer OTHER, SELFPAY ==
[2024-09-27 17:47] VITALS: BP 129/83; PULSE 104; RESP 24; TEMP 36.6; O2SAT 95
--- NOTE | 2024-09-27 17:52 | W.ED.GENAD ---
Discharge Plan Disposition Patient Disposition: Home Condition: Stable Discharge Details Clinical Impression: Abdominal pain of unknown cause Primary Care Provider: Brendon Vivar ED Provider: Richy Oakes Home Meds and New Rx's Prescriptions: Continued cyclobenzaprine 10 mg tablet 10 mg PO TID PRN (Reason: muscle spasm) Qty: 30 3RF gabapentin 300 mg capsule 300 mg PO BID Qty: 180 3RF omeprazole 40 mg capsule,delayed release(DR/EC) 40 mg PO DAILY Qty: 90 3RF clonazepam 1 mg tablet 1 mg PO BID Qty: 55 1RF methadone 10 mg/5 mL solution 100 mg PO QAM simethicone 125 mg tablet,chewable 125 mg PO QID PRN (Reason: abdominal distention) Qty: 20 3RF calcitriol 0.5 mcg capsule 1 mcg PO .COMPLEX Qty: 270 3RF Rx Instructions: 1 mcg orally t2 tabs qam and 1 tab QHS; calcium carbonate [Tums] 200 mg calcium (500 mg) tablet,chewable 2,000 mg PO BID prochlorperazine maleate 5 mg tablet 5 mg PO TID PRN (Reason: acute nausea) Qty: 30 0RF magnesium gluconate 27 mg magnesium (500 mg) tablet 13.5 mg PO TID Qty: 60 3RF polyethylene glycol 3350 17 gram powder in packet 17 g PO BID Qty: 100 1RF Discharge Instructions Instructions: Abdominal Pain, Adult ED Additional Instructions: You were seen in the emergency department for your right lower quadrant abdominal pain, there is no evidence of appendicitis or infection or obstruction, you do have chronic constipation, there is a small calcification seen in your ascending colon around the cecum embedded in stool, this could be any number of things including some sort of chicken bone or bone artifact from food that you have eaten, a small foreign body versus some sort of stone produced by your body, I spoke with Dr. Pulido of surgery about it, they will be in contact with you, please take laxatives for a few days, return for any severe increase in pain with fever, whatever this small object is likely passed with your stool. Referrals: Brendon Vivar DO [Primary Care Provider] - Discharge Data Discharge Date/Time-TO BE ENTERED AT DEPARTURE: 09/27/24 20:58 HPI General Date/Time Provider Initiated Documentation: 09/27/24 17:52. HPI Narrative: 28 year-old male presents to ED today by POV/ambulating with a chief complaint of RLQ abdominal pain with onset this morning. Quality described as intermittent pain, doesn't hurt when still, worse with movement, no radiation to fever, vomiting, diarrhea, constipation, endorses nausea, denies shortness of breath or chest pain, denies URI symptoms. Severity is described as 3/10. Palliating factors include nothing specific attempted. Provoking factors include nothing specific. Events leading up to the incident/Associated Symptoms: Patient denies eating anything different than usual, had boneless chicken last night. Patient not anticoagulated. Related Data Home Medications ?Medication ?Instructions ?Recorded ?Confirmed calcium carbonate (Tums) 2,000 mg PO BID 02/02/23 10/02/24 methadone 10 mg/5 mL oral solution 100 mg PO QAM 06/12/23 10/02/24 prochlorperazine maleate 5 mg 5 mg PO TID PRN acute nausea #30 09/06/23 10/02/24 tablet tabs magnesium gluconate 27 mg 13.5 mg (1/2 x 27 mg magnesium 11/21/23 10/02/24 magnesium (500 mg) tablet (500 mg)) PO TID #60 tabs simethicone 125 mg chewable tablet 125 mg PO QID PRN abdominal 03/12/24 10/02/24 distention #20 tabs cyclobenzaprine 10 mg tablet 10 mg PO TID PRN muscle spasm #30 06/01/24 10/02/24 tabs gabapentin 300 mg capsule 300 mg PO BID #180 caps 06/01/24 10/02/24 calcitriol 0.5 mcg capsule 1 mcg (2 x 0.5 mcg) PO .COMPLEX 06/29/24 10/02/24 #270 caps polyethylene glycol 3350 17 gram 17 g PO BID #100 ea 07/22/24 10/02/24 oral powder packet omeprazole 40 mg capsule,delayed 40 mg PO DAILY #90 caps 07/27/24 10/02/24 release clonazepam 1 mg tablet 1 mg PO BID #55 tabs 08/24/24 10/02/24 Previous Rx's ?Medication ?Instructions ?Recorded prochlorperazine maleate 5 mg 5 mg PO TID PRN acute nausea #30 09/06/23 tablet tabs magnesium gluconate 27 mg 13.5 mg (1/2 x 27 mg magnesium 11/21/23 magnesium (500 mg) tablet (500 mg)) PO TID #60 tabs simethicone 125 mg chewable tablet 125 mg PO QID PRN abdominal 03/12/24 distention #20 tabs cyclobenzaprine 10 mg tablet 10 mg PO TID PRN muscle spasm #30 06/01/24 tabs gabapentin 300 mg capsule 300 mg PO BID #180 caps 06/01/24 calcitriol 0.5 mcg capsule 1 mcg (2 x 0.5 mcg) PO .COMPLEX 06/29/24 #270 caps polyethylene glycol 3350 17 gram 17 g PO BID #100 ea 07/22/24 oral powder packet omeprazole 40 mg capsule,delayed 40 mg PO DAILY #90 caps 07/27/24 release clonazepam 1 mg tablet 1 mg PO BID #55 tabs 08/24/24 Allergies Allergy/AdvReac Type Severity Reaction Status Date / Time codeine Allergy Intermediate pass out Verified 10/02/24 11:35 Penicillins Allergy Skin Rash Verified 10/02/24 11:35 marijuana (cannabis) AdvReac Severe Paranoia Verified 10/02/24 11:35 amoxicillin AdvReac Intermediate Nausea Verified 10/02/24 11:35 dextromethorphan (From AdvReac Intermediate got Verified 10/02/24 11:35 NyQuil) really hot and sweaty doxylamine (From NyQuil) AdvReac Intermediate got Verified 10/02/24 11:35 really hot and sweaty pseudoephedrine (From NyQuil) AdvReac Intermediate got Verified 10/02/24 11:35 really hot and sweaty General Stated Complaint: Abd Prob ADRIANA: 3 Review of Systems All systems reviewed & are unremarkable except as noted in HPI and below Exam Narrative Exam Narrative: GENERAL APPEARANCE: Well-nourished, non-toxic, awake and alert, atraumatic, no acute distress. SKIN: Warm, pink, dry, intact, without rashes/lesions/ulcerations. HEAD: Normocephalic, atraumatic, normal hair distribution for gender/age. EYES: Normal conjunctiva, no exudates on lids/lashes. ENT: Nares patent, no circumoral cyanosis, no facial swelling NECK: Supple, trachea midline, painless cervical ROM. LUNGS/CHEST: Lungs CTA bilaterally, non-labored respirations, normal A/P diameter, symmetrical expansion, no chest wall deformity HEART (CV/PV): Regular rate and rhythm without murmur, no peripheral edema, no JVD. ABDOMEN: Soft, non-distended, no guarding, RLQ tenderness at McBurney's point, no Rovsing's, negative Cedillo's, no CVA tenderness to percussion bilaterally. MSK: Normal ROM, no swelling/deformity to bilateral UEs or LEs, moving all extremities without weakness, no cyanosis, spine midline without tenderness, normal curvature. NEURO: Mental Status AAOx4 - alert to person, place, time, events No facial droop, no forehead involvement. Motor: No focal weakness - strength 5/5 in bilateral UEs and LEs, proximal and distal, symmetric. Sensory: sensation intact to light touch globally. Gait normal: patient ambulated without ataxia into ED room. PSYCH: euthymic, cooperative, pleasant, appropriate speech Course Vital Signs Vital signs: Vital Signs Temperature 36.6 C 09/27/24 17:47 Pulse 104 H 09/27/24 17:47 Respiratory Rate 24 09/27/24 17:47 Blood Pressure 129/83 09/27/24 17:47 Pulse Oximetry 95 09/27/24 17:47 Temperature 36.6 C 09/27/24 17:47 Pulse 104 H 09/27/24 17:47 Respiratory Rate 24 09/27/24 17:47 Blood Pressure 129/83 09/27/24 17:47 Blood Pressure Position Sitting 09/27/24 17:47 Pulse Oximetry 95 09/27/24 17:47 Oxygen Delivery Method Room Air 09/27/24 17:47 Oxygen Flow Rate 0 09/27/24 17:47 Medical Decision Making This dictation utilizes [id number] dictation software and may contain unedited grammatical errors. 28 year-old male presents to ED today by POV/ambulating with a chief complaint of RLQ abdominal pain with onset this morning. Quality described as intermittent pain, doesn't hurt when still, worse with movement, no radiation to fever, vomiting, diarrhea, constipation, endorses nausea, denies shortness of breath or chest pain, denies URI symptoms. Severity is described as 3/10. Palliating factors include nothing specific attempted. Provoking factors include nothing specific. Events leading up to the incident/Associated Symptoms: Patient denies eating anything different than usual, had boneless chicken last night. Patients' medical history: complex abdominal surgical history, s/p thad, sphincter of oddi dysfunction, state he still has his appendix. Family and social history: denies ETOH use, eats normal diet. Pertinent exam findings / vital signs include right lower quadrant tenderness at McBurney's point, no Rovsing's, no CVA tenderness to percussion bilaterally, stable vitals without fever, no respiratory distress. Differential / pathologies of concern include constipation, gastroenteritis, appendicitis, less likely SBO. Diagnostic studies of: - CBC, lactate, CMP, CRP, magnesium, lipase, UA, CT ABD/pelvis W contrast. - CBC shows no leukocytosis, shows a chronic stable anemia - Lactate negative - CMP shows no actionable abnormality - CRP mildly elevated at 1.04 - Lipase negative - UA completely benign - Magnesium within normal limits - CT shows no lymphadenopathy near to the appendix, does not well-visualized the appendix, there is a hyperdense material in the cecum of calcific density question of the bone fragment as well as some constipation seen, discussed with general surgery on-call Dr. Pulido Interventions of: - None patient refused Tylenol and Toradol and offered, discussed CT results with Dr. Pulido he will follow-up, it is unsure what this could be but does not seem emergent or causing any significant obstruction or other surgical pathology, could be a bone fragment from food or bezoar from Tums. ED Course/Assessment/Plan: 28-year-old male presents with right lower quadrant abdominal pain onset this morning, he has a complex surgical history in the abdomen and CT was performed showing a hyperdense calcific density near the cecum, he was reporting some tenderness at McBurney's point, unsure what this calcific density is if it is a piece of food or a bezoar from Tums versus dispelled appendicolith but there appears to be no obstructive or emergent pathology, no perforation. I counseled him on the constipation seen and recommend he try MiraLAX, general surgery practice will follow-up with further evaluation next week. Findings not consistent with appendicitis, SBO, perforated viscus, emergent surgical abdominal pathology. Disposition of abdominal pain of unknown cause. Patient verbalized understanding of the plan and return to ED criteria and engaged in shared decision making. Medical Records Medical records reviewed: Yes I reviewed the patient's medical records. Imaging Data Radiologic Study: Attestation: I personally reviewed and interpreted this imaging study as follows: Imaging: CT Scan Radiologist's impression: Exam: CT Abdomen And Pelvis With Contrast Exam date and time: 09/27/2024 7:12 PM Age: 28 years old Clinical indication: Abdominal pain; Localized; Right lower quadrant (rlq); Prior surgery; Surgery date: 6+ months; Surgery type: Cholecystectomy TECHNIQUE: Imaging protocol: Computed tomography of the abdomen and pelvis with contrast. Radiation optimization: All CT scans at this facility use at least one of these dose optimization techniques: automated exposure control; mA and/or kV adjustment per patient size (includes targeted exams where dose is matched to clinical indication); or iterative reconstruction. Contrast material: [id number]; Contrast volume: 100 ml; Contrast route: INTRAVENOUS (IV); COMPARISON: CT ABDOMEN PELVIS WO/W 08/05/2024 5:40 PM FINDINGS: Lungs: Visualized lung bases are clear. Liver: Mild fatty infiltration of the liver. No mass or ductal dilatation. Gallbladder and biliary ducts: Cholecystectomy. No biliary ductal dilatation. Pancreas: Normal. No mass or ductal dilation. Spleen: Normal. No splenomegaly. Adrenal glands: Normal. No mass. Kidneys and ureters: Bilateral renal cortical cysts. No calculus or obstruction. Stomach and bowel: Hyperdense material in the cecum. Moderate amount of retained fecal material throughout the colon. Appendix: The appendix is not identified with certainty in the right lower quadrant but there is no sign of localized inflammation. Intraperitoneal space: Unremarkable. No free air. No significant fluid collection. Vasculature: Unremarkable. No abdominal aortic aneurysm or significant atherosclerosis. Lymph nodes: Small mesenteric lymph nodes in the right lower quadrant all subcentimeter in size. Urinary bladder: No mass or wall thickening. Reproductive: Unremarkable as visualized. Bones/joints: Unremarkable. No acute fracture. No lytic lesion. Soft tissues: Unremarkable. IMPRESSION: Constipation. Appendix not identified but no sign of right lower quadrant inflammation. Hyperdense material in the cecum of calcific density. Question bone fragment. Dictated and Authenticated by: Mp Enamorado MD. Lab Data Lab results reviewed: Yes I reviewed the patient's lab results. Labs: Laboratory Tests Range/Units 09/27/24 18:27 WBC (4.4-10.8) 10^3/uL 6.91 RBC (4.36-5.78) 10^6/uL 4.20 L Hgb (13.5-17.5) g/dL 10.8 L Hct (40.0-50.0) % 35.2 L MCV (80-95) fL 84 MCH (27.0-33.0) pg 25.7 L MCHC (32.0-36.0) % 30.7 L RDW (11.8-14.1) % 15.5 H Plt Count (130-400) 10^3/uL 391 MPV (8.0-11.0) fL 9.5 Immature Gran % % 0.4 Neutrophils % % 58.7 Lymphocytes % % 27.9 Monocytes % % 9.7 Eosinophils % % 2.6 Basophils % % 0.7 Nucleated RBC % (0.0-0.3) % 0.0 Absolute Neutrophils (1.2-6.7) 10^3/uL 4.05 Absolute Lymphocytes (1.2-3.4) 10^3/uL 1.93 Absolute Monocytes (0.1-0.8) 10^3/uL 0.67 Absolute Eosinophils (0.0-0.7) 10^3/uL 0.18 Absolute Basophils (0.0-0.2) 10^3/uL 0.05 VBG Lactate (<or=2.0) mmol/L 2.0 Sodium (136-145) mmol/L 139 Potassium (3.5-5.1) mmol/L 3.8 Chloride (98-107) mmol/L 102 Carbon Dioxide (21.0-32.0) mmol/L 32.3 H Anion Gap (3-11) mmol/L 4.7 BUN (7-18) mg/dL 13 Creatinine (0.70-1.30) mg/dL 1.6 H Est GFR (CKD-EPI 2020) (mL/min/1.73m2) 59.08 Glucose (74-106) mg/dL 99 Calcium (8.5-10.1) mg/dL 9.3 Magnesium (1.8-2.4) mg/dL 1.9 Total Bilirubin (0.2-1.0) mg/dL 0.3 AST (15-37) U/L 44 H ALT (16-63) U/L 45 Alkaline Phosphatase (46-116) U/L 150 H C-Reactive Protein (<or=0.5) mg/dL 1.04 H Total Protein (6.4-8.2) g/dL 7.7 Albumin (3.4-5.0) g/dL 3.1 L Lipase (<78) U/L 27 Urine Color (Yellow) Yellow Urine Clarity (Clear) Clear Urine pH (5-8) 7.5 Ur Specific Lynn (1.005-1.025) 1.015 Urine Protein (Neg-Trace) mg/dL Negative Urine Ketones (Negative) mg/dL Negative Urine Blood (Negative) Negative Urine Nitrite (Negative) Negative Urine Bilirubin (Negative) Negative Urine Urobilinogen (Up to 0.2) mg/dL 0.2 Ur Leukocyte Esterase (Negative) Negative Urine Glucose (Negative) mg/dL Negative Quality:SDOH Health Related Social Needs: Health related social needs problems with daily activities (Z73.9) PFSH All Active Problems (Updated 10/02/24 @ 13:31 by Antoinette Templeton NP) Abdominal pain (Acute) Abdominal pain of unknown cause (Acute) Leg pain, right (Acute) Lower back pain (Acute) Cubital tunnel syndrome (Acute) Carpal tunnel syndrome of right wrist (Acute) Fatty liver (Acute) IBS (irritable bowel syndrome) (Chronic) Pain of right calf (Acute) Obesity (Chronic) Migraine with aura (Acute) Insect bite of leg, right (Acute) Testicle lump (Acute) Hamstring tendinitis of left thigh (Acute) Pes anserine bursitis (Acute) Hypernatremia (Acute) Cervical radiculopathy (Acute) Left-sided Flower's palsy (Acute) Constipation (Acute) Grief reaction (Chronic) Opiate dependence, continuous (Acute) 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 Possible 2' Methadone, Clnzpm (?). Surg eval (+)/No further action. History of electrolyte imbalance (Acute) Neck pain on left side (Acute) with shoulder, upper back pain.. torticollis, radiating into left hip/leg Pulmonary nodule 1 cm or greater in diameter (Chronic) Therapeutic opioid induced constipation (Acute) Sphincter of Oddi dysfunction (Chronic) Abnormal CT scan, kidney (Acute) Intrahepatic bile duct dilation (Acute) Common bile duct dilatation (Chronic) Has been dilated for quite some time, now more-so. Normal LFTs. Known gallstones. Iatrogenic hypocalcemia (Acute) Multiple endocrine neoplasia type I (Chronic) Depression (Chronic) Hypocalcemia (Chronic) Elevated parathyroid hormone (Acute) Family history of coronary arteriosclerosis (Chronic) Father of [place] at 50, mother had [place] at 42 Severe anxiety with panic (Chronic) Medical History Urinary tract infection CKD (chronic kidney disease) stage 2, GFR 60-89 ml/min GFR 64-65, with Hx FLORESITA and GFR < 45 Primary hyperparathyroidism Complex medical condition Serious electrolyte imbalances, with gynecomastia, possible MEN Dx, CKD and anemia with baseline anxiety and Hx PTSD. Hypocalcemia Anxiety Depression Hyperlipidemia Family history of multiple endocrine neoplasia, type 1 PTSD (post-traumatic stress disorder) Per pt. states no triggers at this time. Surgical History History of laparoscopic cholecystectomy (~11/2023) H/O parathyroidectomy Family History Mother Anxiety Asthma Depression Sister Anxiety Depression Father Cancer lung & stomach Depression Diabetes Hypertension MEN 1 (multiple endocrine neoplasia) Social History Smoking/Tobacco Use Status: Never Smoking risk assessment performed?: Yes Alcohol Intake: current Alcohol Intake frequency: holidays/special occasions only Alcohol type: beer Drug use: Current Sobriety Substance use type: former substance user, crack/cocaine, heroin and painkillers Details: stopped using substances for the passed 4 years Adopted: No Caregiver/Support person: No Foster care: No Household members: none Housing: apartment Number of Children: 0 Communication Needs: None Education Level: high school Do you need help understanding health information?: Never current occupation: [employer] Pets and animals: Yes (Ally) Pets and animals: dog(s) Sexually active: No Do you think of yourself as: straight/heterosexual Current gender identity: male What is your relationship status?: How often do you talk on the phone with friends or family?: twice per week How often do you get together with friends or relatives?: never Do you belong to any clubs or organized social groups?: no Panel score (0-1 are the most socially isolated patients): 0 What type of physical activity do you participate in: walking Duration: 15-30 minutes/day Frequency: 5-6 times per week Maryam/Oriental Orthodox: Alevism Special maryam needs: No Seatbelt use: always Helmet use: Yes Helmet use: always 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
[2024-09-27 18:41] LABS: Abs Immature Grans 0.03 10^3/uL (0.0-0.06); Absolute Basophil Count 0.05 10^3/uL (0.0-0.2); Absolute Eosinophil Count 0.18 10^3/uL (0.0-0.7); Absolute Lymphocyte Count 1.93 10^3/uL (1.2-3.4); Absolute Monocyte Count 0.67 10^3/uL (0.1-0.8); Absolute Neutrophil Count 4.05 10^3/uL (1.2-6.7); Basophils % 0.7 %; Eosinophils % 2.6 %; HCT 35.2 % (40.0-50.0); HGB 10.8 g/dL (13.5-17.5); Immature Grans % 0.4 %; Lymphocytes % 27.9 %; MCH 25.7 pg (27.0-33.0); MCHC 30.7 % (32.0-36.0); MCV 84 fL (80-95); MPV 9.5 fL (8.0-11.0); Monocytes % 9.7 %; Neutrophils % 58.7 %; Platelet Count 391 10^3/uL (130-400); RDW 15.5 % (11.8-14.1); RDW-SD 46.5 fL; WBC 6.91 10^3/uL (4.4-10.8)
[2024-09-27 18:51] LABS: Bilirubin Negative (Negative); Blood Negative (Negative); Clarity Clear (Clear); Glucose Negative (Negative); Ketones Negative (Negative); Leukocyte Esterase Negative (Negative); Nitrite Negative (Negative); Specific Gravity 1.015 (1.005-1.025); Urobilinogen 0.2 mg/dL (Up to 0.2); pH 7.5 (5-8)
[2024-09-27 18:57] LABS: ALT 45 U/L (16-63); AST 44 U/L (15-37); Albumin 3.1 g/dL (3.4-5.0); Alkaline Phosphatase 150 U/L (46-116); Anion Gap 4.7 mmol/L (3-11); BUN 13 mg/dL (7-18); Bilirubin, Total 0.3 mg/dL (0.2-1.0); C-Reactive Protein 1.04 mg/dL (<or=0.5); CO2 32.3 mmol/L (21.0-32.0); CREATININE 1.6 mg/dL (0.70-1.30); Calcium 9.3 mg/dL (8.5-10.1); Chloride 102 mmol/L (98-107); Estimated GFR 59.08 (mL/min/1.73m2); Glucose 99 mg/dL (74-106); Lipase 27 U/L (<78); Magnesium 1.9 mg/dL (1.8-2.4); Potassium 3.8 mmol/L (3.5-5.1); Sodium 139 mmol/L (136-145); Total Protein 7.7 g/dL (6.4-8.2)
[2024-09-27] MEDS: Omnipaque 350 MG/ML 100 ML BTL IJ (19:17)
[2024-09-27] MEDS: Normal Saline - Diluent 50 ML VIAL IJ (19:18)
--- NOTE | 2024-09-27 19:20 | DI.CT_ITS ---
Exam(s) CT ABDOMEN PELVIS W EXAM: CT ABDOMEN PELVIS W CLINICAL HISTORY: RLQ tenderness. TECHNIQUE: Imaging Protocol: Axial computed tomography images with coronal and sagittal reformatted images were created and reviewed CONTRAST MATERIAL: Intravenous: Omnipaque 350 Contrast volume:100 ml Oral: no COMPARISON: MR MR ABDOMEN WO from 09/10/[address] ABDOMEN PELVIS W from 10/15/[address] ABDOMEN PELVIS W from 04/07/[address] ABDOMEN PELVIS WO/W from 08/05/2024 FINDINGS: ABDOMEN and PELVIS: Lung Bases: No acute findings. Liver: Mild hepatic steatosis. No suspicious mass. Gallbladder and biliary tract: Cholecystectomy. No biliary dilation. Pancreas: Normal density. No abnormal calcifications or inflammatory process. No evidence of mass. Spleen: Normal. Kidneys: Normal size, contour and axis. No radiodense stones. No obstructive uropathy. . No suspic ious masses seen. Adrenal glands: No masses seen. Vasculature: Abdominal aorta non-dilated. Soft tissues: Unremarkable. Bladder: No gross wall thickening. No calculi.No focal mass. Bowel: Increased quantity of stool is noted throughout the colon. No obstruction. No bowel wall th ickening. Appendix is normal. High-density material noted in cecum could represent digested medicati on or other material. No inflammation at the cecum. Peritoneal cavity: No ascites. No focal collection. No mesenteric inflammatory response. No free air . Bones: Unremarkable for age. Reproductive organs: Unremarkable. Lymph nodes: No pathologically enlarged lymph nodes. IMPRESSION:: No acute abnormality in the abdomen or pelvis. Increased quantity of fecal material. RADIATION DOSE DELIVERED: 1,244mGy.cm Total DLP DATA REPOSITORY: All CT scans at this facility are submitted to the National Radiology Data Registry (NRDR) Dose Index Registry (DIR) with the [employer] (ACR). RADIATION OPTIMIZATION: All CT scans at this facility use at least one of these dose optimization te chniques: automated exposure control; mA and/or kV adjustment per patient size (includes targeted exa ms where dose is matched to clinical indication); or iterative reconstruction.
[2024-09-27 19:44] VITALS: BP 119/75; PULSE 76; RESP 16; TEMP 36.4; O2SAT 93
--- NOTE | 2024-09-27 20:20 | DI.VRAD_ITS ---
PROCEDURE INFORMATION: Exam: CT Abdomen And Pelvis With Contrast Exam date and time: 09/27/2024 7:12 PM Age: 28 years old Clinical indication: Abdominal pain; Localized; Right lower quadrant (rlq); Prior surgery; Surgery date: 6+ months; Surgery type: Cholecystectomy TECHNIQUE: Imaging protocol: Computed tomography of the abdomen and pelvis with contrast. Radiation optimization: All CT scans at this facility use at least one of these dose optimization techniques: automated exposure control; mA and/or kV adjustment per patient size (includes targeted exams where dose is matched to clinical indication); or iterative reconstruction. Contrast material: [id number]; Contrast volume: 100 ml; Contrast route: INTRAVENOUS (IV); COMPARISON: CT ABDOMEN PELVIS WO/W 08/05/2024 5:40 PM FINDINGS: Lungs: Visualized lung bases are clear. Liver: Mild fatty infiltration of the liver. No mass or ductal dilatation. Gallbladder and biliary ducts: Cholecystectomy. No biliary ductal dilatation. Pancreas: Normal. No mass or ductal dilation. Spleen: Normal. No splenomegaly. Adrenal glands: Normal. No mass. Kidneys and ureters: Bilateral renal cortical cysts. No calculus or obstruction. Stomach and bowel: Hyperdense material in the cecum. Moderate amount of retained fecal material throughout the colon. Appendix: The appendix is not identified with certainty in the right lower quadrant but there is no sign of localized inflammation. Intraperitoneal space: Unremarkable. No free air. No significant fluid collection. Vasculature: Unremarkable. No abdominal aortic aneurysm or significant atherosclerosis. Lymph nodes: Small mesenteric lymph nodes in the right lower quadrant all subcentimeter in size. Urinary bladder: No mass or wall thickening. Reproductive: Unremarkable as visualized. Bones/joints: Unremarkable. No acute fracture. No lytic lesion. Soft tissues: Unremarkable. IMPRESSION: Constipation. Appendix not identified but no sign of right lower quadrant inflammation. Hyperdense material in the cecum of calcific density. Question bone fragment. Dictated and Authenticated by: Mp Enamorado MD. Orderin Champ Lockhart MD
[2024-09-27 20:53] VITALS: BP 117/87; PULSE 88; RESP 14; TEMP 36.6; O2SAT 96
[2024-09-27 20:59] VITALS: BP 117/87; PULSE 88; RESP 14; O2SAT 96
== END 2024-09-27 20:58 | disposition home or self-care (01) ==
PROVIDERS: Emergency Provider Physician Assistant; PCP Family Medicine
DX: R10.32 Left lower quadrant pain (principal); N28.1 Cyst of kidney, acquired; E89.2 Postprocedural hypoparathyroidism; E78.5 Hyperlipidemia, unspecified; Z90.49 Acquired absence of other specified parts of digestive tract; N18.2 Chronic kidney disease, stage 2 (mild)
CPT/HCPCS: 80053; 83690; 99285; 74177; 81003; 83605; 83735; 85025; 86140; 99284; J3490

== ENCOUNTER 2024-09-29 11:44 | Emergency (ER) | payer OTHER, SELFPAY ==
--- NOTE | 2024-09-29 11:45 | RT.EKG_ITS ---
APPROVED REPORT Exam: Resting ECG Reason for Exam: chest pain Patient Location: E HR:103 bpm ECG Measurements Heart Rate 103 AXIS [place] 164 P 37 QRSd 93 QRS 53 QT 340 T 30 QTc 445 Conclusion Sinus tachycardia...rate> 99 Abnrm R prog, consider ASMI or lead placement...Q >30mS, diminished R, V1-V2
[2024-09-29 11:47] VITALS: BP 123/83; PULSE 107; RESP 18; TEMP 36.5; O2SAT 96
== END 2024-09-29 12:55 | disposition left against medical advice (07) ==
PROVIDERS: PCP Family Medicine
DX: Z53.21 Procedure and treatment not carried out due to patient leaving prior to being seen by health care provider (principal)
CPT/HCPCS: 93005; 93010

== ENCOUNTER 2024-10-02 11:30 | Emergency (ER) | payer OTHER, SELFPAY ==
[2024-10-02 11:32] VITALS: BP 128/87; PULSE 117; RESP 22; TEMP 36.6; O2SAT 98
[2024-10-02 11:35] VITALS: BP 128/87; PULSE 117; RESP 22; TEMP 36.6; O2SAT 98
--- NOTE | 2024-10-02 11:45 | RT.EKG_ITS ---
APPROVED REPORT Exam: Resting ECG Reason for Exam: electrolytes off Patient Location: E HR:98 bpm ECG Measurements Heart Rate 98 AXIS [place] 182 P 51 QRSd 98 QRS 39 QT 375 T 47 QTc 481 Conclusion Sinus 98 normal axis no stemi
[2024-10-02 12:05] LABS: Bilirubin Negative (Negative); Blood Negative (Negative); Clarity Clear (Clear); Glucose Negative (Negative); Ketones Negative (Negative); Leukocyte Esterase Negative (Negative); Nitrite Negative (Negative); Urobilinogen 0.2 mg/dL (Up to 0.2)
--- NOTE | 2024-10-02 12:08 | ED.GENADUL_ITS ---
Discharge Plan Disposition Patient Disposition: Home Condition: Stable Discharge Details Clinical Impression: Abdominal pain Primary Care Provider: Brendon Vivar ED Provider: Antoinette Templeton Home Meds and New Rx's Prescriptions: Continued cyclobenzaprine 10 mg tablet 10 mg PO TID PRN (Reason: muscle spasm) Qty: 30 3RF gabapentin 300 mg capsule 300 mg PO BID Qty: 180 3RF omeprazole 40 mg capsule,delayed release(DR/EC) 40 mg PO DAILY Qty: 90 3RF clonazepam 1 mg tablet 1 mg PO BID Qty: 55 1RF methadone 10 mg/5 mL solution 100 mg PO QAM simethicone 125 mg tablet,chewable 125 mg PO QID PRN (Reason: abdominal distention) Qty: 20 3RF calcitriol 0.5 mcg capsule 1 mcg PO .COMPLEX Qty: 270 3RF Rx Instructions: 1 mcg orally t2 tabs qam and 1 tab QHS; calcium carbonate [Tums] 200 mg calcium (500 mg) tablet,chewable 2,000 mg PO BID prochlorperazine maleate 5 mg tablet 5 mg PO TID PRN (Reason: acute nausea) Qty: 30 0RF magnesium gluconate 27 mg magnesium (500 mg) tablet 13.5 mg PO TID Qty: 60 3RF polyethylene glycol 3350 17 gram powder in packet 17 g PO BID Qty: 100 1RF Discharge Instructions Instructions: Abdominal Pain, Adult ED Additional Instructions: At this time no evidence of obstruction no evidence of appendicitis. You do have a couple of cysts noted on your kidneys that they are recommending further evaluation with ultrasound. Please discuss this with your primary care provider. Please take the nausea medication as directed up to 3 times daily as needed for nausea. Clear liquids for the next 2 to 3 days advance as tolerated. Follow up with primary care provider in 3-5 days. Return to ED sooner if any worsening or concerns. Referrals: Brendon Vivar DO [Primary Care Provider] - 3 days HPI General Mode of arrival: ambulatory . Date/Time Provider Initiated Documentation: 10/02/24 11:37 . Limitations to Documentation: no limitations . Information obtained by: patient, RN notes reviewed and old records reviewed . HPI Narrative: 28 year old male pressents to the ER with cc of Mid umbilical abd pain and RUQ abd pain. Seen here for same 5 days ago, had a workup including CT. Reports since then increased nausea, increased pain and diarrhea. Hx of CKD, parathyroidectomy, Anxiety, depression, Hyperlipidemia, hypocalcemia, PTSD, cholecystectomy. Related Data Home Medications ?Medication ?Instructions ?Recorded ?Confirmed calcium carbonate (Tums) 2,000 mg PO BID 02/02/23 10/02/24 methadone 10 mg/5 mL oral solution 100 mg PO QAM 06/12/23 10/02/24 prochlorperazine maleate 5 mg 5 mg PO TID PRN acute nausea #30 09/06/23 10/02/24 tablet tabs magnesium gluconate 27 mg 13.5 mg (1/2 x 27 mg magnesium 11/21/23 10/02/24 magnesium (500 mg) tablet (500 mg)) PO TID #60 tabs simethicone 125 mg chewable tablet 125 mg PO QID PRN abdominal 03/12/24 10/02/24 distention #20 tabs cyclobenzaprine 10 mg tablet 10 mg PO TID PRN muscle spasm #30 06/01/24 10/02/24 tabs gabapentin 300 mg capsule 300 mg PO BID #180 caps 06/01/24 10/02/24 calcitriol 0.5 mcg capsule 1 mcg (2 x 0.5 mcg) PO .COMPLEX 06/29/24 10/02/24 #270 caps polyethylene glycol 3350 17 gram 17 g PO BID #100 ea 07/22/24 10/02/24 oral powder packet omeprazole 40 mg capsule,delayed 40 mg PO DAILY #90 caps 07/27/24 10/02/24 release clonazepam 1 mg tablet 1 mg PO BID #55 tabs 08/24/24 10/02/24 Previous Rx's ?Medication ?Instructions ?Recorded prochlorperazine maleate 5 mg 5 mg PO TID PRN acute nausea #30 09/06/23 tablet tabs magnesium gluconate 27 mg 13.5 mg (1/2 x 27 mg magnesium 11/21/23 magnesium (500 mg) tablet (500 mg)) PO TID #60 tabs simethicone 125 mg chewable tablet 125 mg PO QID PRN abdominal 03/12/24 distention #20 tabs cyclobenzaprine 10 mg tablet 10 mg PO TID PRN muscle spasm #30 06/01/24 tabs gabapentin 300 mg capsule 300 mg PO BID #180 caps 06/01/24 calcitriol 0.5 mcg capsule 1 mcg (2 x 0.5 mcg) PO .COMPLEX 06/29/24 #270 caps polyethylene glycol 3350 17 gram 17 g PO BID #100 ea 07/22/24 oral powder packet omeprazole 40 mg capsule,delayed 40 mg PO DAILY #90 caps 07/27/24 release clonazepam 1 mg tablet 1 mg PO BID #55 tabs 08/24/24 Allergies Allergy/AdvReac Type Severity Reaction Status Date / Time codeine Allergy Intermediate pass out Verified 10/02/24 11:35 Penicillins Allergy Skin Rash Verified 10/02/24 11:35 marijuana (cannabis) AdvReac Severe Paranoia Verified 10/02/24 11:35 amoxicillin AdvReac Intermediate Nausea Verified 10/02/24 11:35 dextromethorphan (From AdvReac Intermediate got Verified 10/02/24 11:35 NyQuil) really hot and sweaty doxylamine (From NyQuil) AdvReac Intermediate got Verified 10/02/24 11:35 really hot and sweaty pseudoephedrine (From NyQuil) AdvReac Intermediate got Verified 10/02/24 11:35 really hot and sweaty General Stated Complaint: Abd Prob ADRIANA: 3 Review of Systems All systems reviewed & are unremarkable except as noted in HPI and below Exam Narrative Exam Narrative: Constitutional: Alert and oriented x3. Appears stated age. Obese body habitus. Head: Normocephalic, no trauma. Eyes: Pupils PERRL, Red reflex noted, EOM's intact. Eyelids symmetrical without lesions, discharge, or swelling. ENT: Bilateral TM's WNL, External ear normal to inspection, no mastoid TTP, swelling, or erythema, Nasal turbinates WNL, no nasal discharge. Normal dentition, Posterior pharynx WNL, no exudate. Chest: RRR, Normal S1, S2, distal pulses intact. Resp: Lungs clear to auscultation bilaterally, no wheezes, rales, or rhonchi. Abdomen: Soft, non-distended, Normoactive bowel sounds all 4 quads. Musculoskeletal: Normal gait, Moves all 4 extremities without difficulty. Skin: No suspicious rashes or lesions. Capillary refill less than 2 sec. Neurologic: Cranial nerves II-XII intact. Alert and oriented x 3. Motor: No deficits noted. Sensory: Intact bilaterally all 4 extremities. Hematologic/Lymphatic: No ecchymosis, no lymphadenopathy. Course Vital Signs Vital signs: Vital Signs Temperature 36.6 C 10/02/24 11:32 Pulse 117 H 10/02/24 11:32 Respiratory Rate 22 10/02/24 11:32 Blood Pressure 128/87 10/02/24 11:32 Pulse Oximetry 98 10/02/24 11:32 Temperature 36.6 C 10/02/24 11:35 Pulse 117 H 10/02/24 11:35 Respiratory Rate 22 10/02/24 11:35 Blood Pressure 128/87 10/02/24 11:35 Pulse Oximetry 98 10/02/24 11:35 Lab/Test Results Lab/Test Results: Laboratory Tests Range/Units 10/02/24 11:50 Urine Color (Yellow) Yellow Urine Clarity (Clear) Clear Urine pH (5-8) 7.0 Ur Specific [place] (1.005-1.025) 1.010 Urine Protein (Neg-Trace) mg/dL Negative Urine Ketones (Negative) mg/dL Negative Urine Blood (Negative) Negative Urine Nitrite (Negative) Negative Urine Bilirubin (Negative) Negative Urine Urobilinogen (Up to 0.2) mg/dL 0.2 Ur Leukocyte Esterase (Negative) Negative Urine Glucose (Negative) mg/dL Negative Medical Decision Making 28 year old male pressents to the ER with cc of Mid umbilical abd pain and RUQ abd pain. Seen here for same 5 days ago, had a workup including CT. Reports since then increased nausea, increased pain and diarrhea. Hx of CKD, parathyroidectomy, Anxiety, depression, Hyperlipidemia, hypocalcemia, PTSD, cholecystectomy. Workup ordered including CBC, CMP, UA, CT Labs are largely unchanged from [address] shows some small bilateral renal lesions, neoplasm is less likely, I do recommend sonographic correlation. There is some thickening of the rectosigmoid colon. No obstruction no evidence of appendicitis. Stool burden is decreased with comparison to the study from 5 days ago[address] Discussed discussed CT results and lab results with patient who verbalized understanding. Will give Zofran tablets to go. Discussed clear liquid diet for the next few days and advance with a bland diet as tolerated he verbalized understanding. He reports he feels much better after the Zofran administration. All his questions were answered to the best my ability. This text was generated using Nuance dictation system, please disregard any oddities of phrase or misspellings. Medical Records Medical records reviewed: Yes I reviewed the patient's medical records. Imaging Data Radiologic Study: Imaging: CT Scan Radiologist's impression: Appendix: No evidence of appendicitis. Intraperitoneal space: Unremarkable. No free air. No significant fluid collection. Vasculature: Unremarkable. No abdominal aortic aneurysm. Lymph nodes: Few mildly prominent retroperitoneal and mesenteric lymph nodes however, no adenopathy by CT size criteria. Urinary bladder: Unremarkable as visualized. Reproductive: Unremarkable as visualized. Bones/joints: Unremarkable. No acute fracture. Soft tissues: Unremarkable. IMPRESSION: 1. Indeterminate hypoattenuating small bilateral renal lesions, may represent proteinaceous cysts or cysts which are too small to characterize. Renal neoplasms are less likely. Advise sonographic correlation. 2. Slightly thick-walled rectosigmoid colon without abnormal distension, fecal impaction or pericolonic inflammation, may represent artifact related to underdistention. In the appropriate setting, consider mild mild proctocolitis. 3. Post cholecystectomy. The common bile duct is top-normal relative to age, similar to prior, likely within normal limits relative to cholecystectomy. Correlate with appropriate labs. If there is clinical reason to suspect biliary ductal pathology appears to be a cause of abdominal pain, consider ultrasound or MRCP 4. Stool burden is decreased compared with September 27, 2024 Thank you for allowing us to participate in the care of your patient. Dictated and Authenticated by: Trang Berger DO Lab Data Lab results reviewed: Yes I reviewed the patient's lab results. Labs: Laboratory Tests Range/Units 10/02/24 10/02/24 11:45 11:50 WBC (4.4-10.8) 10^3/uL 7.33 RBC (4.36-5.78) 10^6/uL 4.25 L Hgb (13.5-17.5) g/dL 11.2 L Hct (40.0-50.0) % 36.0 L MCV (80-95) fL 85 MCH (27.0-33.0) pg 26.4 L MCHC (32.0-36.0) % 31.1 L RDW (11.8-14.1) % 15.7 H Plt Count (130-400) 10^3/uL 385 MPV (8.0-11.0) fL 9.8 Immature Gran % % 0.4 Neutrophils % % 52.7 Lymphocytes % % 31.1 Monocytes % % 12.0 Eosinophils % % 3.3 Basophils % % 0.5 Nucleated RBC % (0.0-0.3) % 0.0 Absolute Neutrophils (1.2-6.7) 10^3/uL 3.86 Absolute Lymphocytes (1.2-3.4) 10^3/uL 2.28 Absolute Monocytes (0.1-0.8) 10^3/uL 0.88 H Absolute Eosinophils (0.0-0.7) 10^3/uL 0.24 Absolute Basophils (0.0-0.2) 10^3/uL 0.04 Sodium (136-145) mmol/L 141 Potassium (3.5-5.1) mmol/L 3.6 Chloride (98-107) mmol/L 102 Carbon Dioxide (21.0-32.0) mmol/L 33.8 H Anion Gap (3-11) mmol/L 5.2 BUN (7-18) mg/dL 11 Creatinine (0.70-1.30) mg/dL 1.6 H Est GFR (CKD-EPI 2020) (mL/min/1.73m2) 59.08 Glucose (74-106) mg/dL 87 Calcium (8.5-10.1) mg/dL 9.2 Magnesium (1.8-2.4) mg/dL 1.8 Total Bilirubin (0.2-1.0) mg/dL 0.1 L AST (15-37) U/L 31 ALT (16-63) U/L 46 Alkaline Phosphatase (46-116) U/L 174 H Total Protein (6.4-8.2) g/dL 8.0 Albumin (3.4-5.0) g/dL 3.2 L Urine Color (Yellow) Yellow Urine Clarity (Clear) Clear Urine pH (5-8) 7.0 Ur Specific [place] (1.005-1.025) 1.010 Urine Protein (Neg-Trace) mg/dL Negative Urine Ketones (Negative) mg/dL Negative Urine Blood (Negative) Negative Urine Nitrite (Negative) Negative Urine Bilirubin (Negative) Negative Urine Urobilinogen (Up to 0.2) mg/dL 0.2 Ur Leukocyte Esterase (Negative) Negative Urine Glucose (Negative) mg/dL Negative Quality:SDOH Health Related Social Needs: Health related social needs problems with daily activi ties (Z73.9) PFSH All Active Problems (Updated 10/02/24 @ 13:31 by Antoinette Templeton NP) Abdominal pain (Acute) Abdominal pain of unknown cause (Acute) Leg pain, right (Acute) Lower back pain (Acute) Cubital tunnel syndrome (Acute) Carpal tunnel syndrome of right wrist (Acute) Fatty liver (Acute) IBS (irritable bowel syndrome) (Chronic) Pain of right calf (Acute) Obesity (Chronic) Migraine with aura (Acute) Insect bite of leg, right (Acute) Testicle lump (Acute) Hamstring tendinitis of left thigh (Acute) Pes anserine bursitis (Acute) Hypernatremia (Acute) Cervical radiculopathy (Acute) Left-sided Flower's palsy (Acute) Constipation (Acute) Grief reaction (Chronic) Opiate dependence, continuous (Acute) 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 Possible 2' Methadone, Clnzpm (?). Surg eval (+)/No further action. History of electrolyte imbalance (Acute) Neck pain on left side (Acute) with shoulder, upper back pain.. torticollis, radiating into left hip/leg Pulmonary nodule 1 cm or greater in diameter (Chronic) Therapeutic opioid induced constipation (Acute) Sphincter of Oddi dysfunction (Chronic) Abnormal CT scan, kidney (Acute) Intrahepatic bile duct dilation (Acute) Common bile duct dilatation (Chronic) Has been dilated for quite some time, now more-so. Normal LFTs. Known gallstones. Iatrogenic hypocalcemia (Acute) Multiple endocrine neoplasia type I (Chronic) Depression (Chronic) Hypocalcemia (Chronic) Elevated parathyroid hormone (Acute) Family history of coronary arteriosclerosis (Chronic) Father of SD at 50, mother had SD at 42 Severe anxiety with panic (Chronic) Medical History Urinary tract infection CKD (chronic kidney disease) stage 2, GFR 60-89 ml/min GFR 64-65, with Hx FLORESITA and GFR < 45 Primary hyperparathyroidism Complex medical condition Serious electrolyte imbalances, with gynecomastia, possible MEN Dx, CKD and anemia with baseline anxiety and Hx PTSD. Hypocalcemia Anxiety Depression Hyperlipidemia Family history of multiple endocrine neoplasia, type 1 PTSD (post-traumatic stress disorder) Per pt. states no triggers at this time. Surgical History History of laparoscopic cholecystectomy (~11/2023) H/O parathyroidectomy Family History Mother Anxiety Asthma Depression Sister Anxiety Depression Father Cancer lung & stomach Depression Diabetes Hypertension MEN 1 (multiple endocrine neoplasia) Social History Smoking/Tobacco Use Status: Never Smoking risk assessment performed?: Yes Alcohol Intake: current Alcohol Intake frequency: holidays/special occasions only Alcohol type: beer Drug use: Current Sobriety Substance use type: former substance user, crack/cocaine, heroin and painkillers Details: stopped using substances for the passed 4 years Adopted: No Caregiver/Support person: No Foster care: No Household members: none Housing: apartment Number of Children: 0 Communication Needs: None Education Level: high school Do you need help understanding health information?: Never current occupation: [employer] Pets and animals: Yes (Ally) Pets and animals: dog(s) Sexually active: No Do you think of yourself as: straight/heterosexual Current gender identity: male What is your relationship status?: How often do you talk on the phone with friends or family?: twice per week How often do you get together with friends or relatives?: never Do you belong to any clubs or organized social groups?: no Panel score (0-1 are the most socially isolated patients): 0 What type of physical activity do you participate in: walking Duration: 15-30 minutes/day Frequency: 5-6 times per week Maryam/Worship: Sabianist Special maryam needs: No Seatbelt use: always Helmet use: Yes Helmet use: always Drive intox or ride w/intox food mobile driver: No Do you feel safe at home: Yes Do you feel safe in your relationship?: Yes
[2024-10-02] MEDS: Ondansetron 4 MG/2 ML VIAL IVP (12:17)
[2024-10-02 12:18] LABS: Abs Immature Grans 0.03 10^3/uL (0.0-0.06); Absolute Basophil Count 0.04 10^3/uL (0.0-0.2); Absolute Eosinophil Count 0.24 10^3/uL (0.0-0.7); Absolute Lymphocyte Count 2.28 10^3/uL (1.2-3.4); Absolute Monocyte Count 0.88 10^3/uL (0.1-0.8); Absolute Neutrophil Count 3.86 10^3/uL (1.2-6.7); Basophils % 0.5 %; Eosinophils % 3.3 %; HGB 11.2 g/dL (13.5-17.5); Immature Grans % 0.4 %; Lymphocytes % 31.1 %; MCH 26.4 pg (27.0-33.0); MCHC 31.1 % (32.0-36.0); MCV 85 fL (80-95); MPV 9.8 fL (8.0-11.0); Neutrophils % 52.7 %; Platelet Count 385 10^3/uL (130-400); RBC 4.25 10^6/uL (4.36-5.78); RDW 15.7 % (11.8-14.1); RDW-SD 47.5 fL; WBC 7.33 10^3/uL (4.4-10.8)
[2024-10-02 12:30] LABS: ALT 46 U/L (16-63); AST 31 U/L (15-37); Albumin 3.2 g/dL (3.4-5.0); Alkaline Phosphatase 174 U/L (46-116); Anion Gap 5.2 mmol/L (3-11); BUN 11 mg/dL (7-18); Bilirubin, Total 0.1 mg/dL (0.2-1.0); CO2 33.8 mmol/L (21.0-32.0); CREATININE 1.6 mg/dL (0.70-1.30); Calcium 9.2 mg/dL (8.5-10.1); Chloride 102 mmol/L (98-107); Estimated GFR 59.08 (mL/min/1.73m2); Glucose 87 mg/dL (74-106); Magnesium 1.8 mg/dL (1.8-2.4); Potassium 3.6 mmol/L (3.5-5.1); Sodium 141 mmol/L (136-145)
[2024-10-02] MEDS: Normal Saline - Diluent 50 ML VIAL IJ (12:49)
[2024-10-02] MEDS: Omnipaque 350 MG/ML 100 ML BTL IJ (12:50)
--- NOTE | 2024-10-02 12:51 | DI.CT_ITS ---
Exam(s) CT ABDOMEN PELVIS W EXAM: CT ABDOMEN PELVIS W CLINICAL HISTORY: Abdominal pain. TECHNIQUE: Imaging Protocol: Axial computed tomography images with coronal and sagittal reformatted images were created and reviewed CONTRAST MATERIAL: Intravenous: Omnipaque-350 100cc Oral: None COMPARISON: CT CT ABDOMEN PELVIS W from 09/27/2024 FINDINGS: VISUALIZED LUNG BASES: No nodules nor pleural effusions evident. ABDOMEN: There is no ascites. LIVER: Again noted is mild steatosis of the liver. There no discrete focal hepatic lesions. No dila kayleen intrahepatic ducts. GALLBLADDER/BILIARY: The gallbladder is again noted be surgically absent. CBD diameter is commensura te with post cholecystectomy status. PANCREAS: No evidence of pancreatic mass nor dilatation of the pancreatic duct. SPLEEN: Spleen is not enlarged. No obvious intrasplenic lesions. Splenic and portal veins are paten t. ADRENALS: There are no significant adrenal masses. KIDNEYS:There are hypodensities in both kidneys again noted, largest in the upper pole of the left ki dney and measuring 2.5 x 2.5 cm. These are denser than typical cysts and may represent proteinaceous cysts; renal malignancy is less likely. Recommend ultrasound. There are no calculi nor hydronephro sis. No hydroureter.. ABDOMINAL AORTA: Abdominal aorta is not enlarged. LYMPH NODES:There is no retroperitoneal nor paraaortic adenopathy. ABDOMINAL WALL: No evidence of significant anterior abdominal wall nor inguinal hernia. GI: There is no evidence of bowel obstruction, free air, nor abscess. No evidence of bowel obstruction. There is layering hyperdense material again noted in the floor of the cecum; some of this has passed into the ascending colon just above the ileocecal valve. PELVIS: GI: No evidence of appendicitis.The sigmoid is redundant, extending into the right upper quadrant of the abdomen. There is a moderate amount of fecal material in the sigmoid. The lower sigmoid and rec patricia wall appears uniformly thickened more so than 5 days ago. This may be related to element of proc titis/localize colitis or just the fact that the prominent fecal material which was evident at that t asia has passed. LYMPH NODES: There is no intrapelvic nor inguinal adenopathy. REPRODUCTIVE: Prostate size normal. Seminal vesicles unremarkable. URINARY BLADDER: No calculi nor obvious masses evident OSSEOUS: No fractures and no significant osseous lesions. Sacroiliac joints unremarkable. IMPRESSION: 1. Sigmoid is redundant and a lot of the fecal material which was present in the colon on the CT scan of 5 days ago has passed. On the present study the wall of the rectum appears circumferentially thi ckened which may represent an element of proctocolitis versus under distension. 2. Multiple radiopaque densities are again noted in the dependent aspect of the cecum. Some of moved slightly more distally into the ascending colon above the ileocecal valve region. There none in the small bowel. There is no bowel obstruction. 3. Indeterminate hypodense lesions in both kidneys measuring up to 2.5 cm exhibiting density units to o dense to be simple cysts. Suspect that these are proteinaceous cysts and recommend follow-up ultra sound of the kidneys. 4. Gallbladder is again noted be surgically absent. The biliary tree is not significantly dilated. No evidence of appendicitis nor diverticulitis. No bowel obstruction, free air, nor abscess. RADIATION DOSE DELIVERED: 1,058.25mGy.cm Total DLP DATA REPOSITORY: All CT scans at this facility are submitted to the National Radiology Data Registry (NRDR) Dose Index Registry (DIR) with the [employer] (ACR). RADIATION OPTIMIZATION: All CT scans at this facility use at least one of these dose optimization te chniques: automated exposure control; mA and/or kV adjustment per patient size (includes targeted exa ms where dose is matched to clinical indication); or iterative reconstruction.
--- NOTE | 2024-10-02 13:26 | DI.VRAD_ITS ---
PROCEDURE INFORMATION: Exam: CT Abdomen And Pelvis With Contrast Exam date and time: 10/02/2024 12:41 PM Age: 28 years old Clinical indication: Abdominal pain; Generalized TECHNIQUE: Imaging protocol: Computed tomography of the abdomen and pelvis with contrast. Radiation optimization: All CT scans at this facility use at least one of these dose optimization techniques: automated exposure control; mA and/or kV adjustment per patient size (includes targeted exams where dose is matched to clinical indication); or iterative reconstruction. Contrast material: OMNI 350; Contrast volume: 100 ml; Contrast route: INTRAVENOUS (IV); COMPARISON: CT ABDOMEN PELVIS W 09/27/2024 7:12 PM FINDINGS: Lungs: No concerning finding. Liver: Mild steatosis is likely. No mass or ductal dilatation. Gallbladder and biliary ducts: Post cholecystectomy. The common bile duct is top-normal relative to age, similar to prior, likely within normal limits relative to cholecystectomy. Pancreas: Normal. No ductal dilation. Spleen: The spleen is unremarkable. Adrenal glands: The adrenal glands are unremarkable. Kidneys and ureters: No hydronephrosis or nephrolithiasis. Two hypoattenuating left renal lesions of approximate 1 cm and 1.5 cm and a small hypoattenuating right renal lesion do not meet criteria for simple cyst. Stomach and bowel: No evidence of bowel obstruction. No pericolonic inflammatory stranding. No diverticulitis. Slightly thick-walled rectosigmoid colon without abnormal distension, fecal impaction or pericolonic inflammation. Moderate stool within the ascending colon; no evidence of abnormally large stool burden. Notably, stool burden is decreased compared with September 27, 2024 Appendix: No evidence of appendicitis. Intraperitoneal space: Unremarkable. No free air. No significant fluid collection. Vasculature: Unremarkable. No abdominal aortic aneurysm. Lymph nodes: Few mildly prominent retroperitoneal and mesenteric lymph nodes however, no adenopathy by CT size criteria. Urinary bladder: Unremarkable as visualized. Reproductive: Unremarkable as visualized. Bones/joints: Unremarkable. No acute fracture. Soft tissues: Unremarkable. IMPRESSION: 1. Indeterminate hypoattenuating small bilateral renal lesions, may represent proteinaceous cysts or cysts which are too small to characterize. Renal neoplasms are less likely. Advise sonographic correlation. 2. Slightly thick-walled rectosigmoid colon without abnormal distension, fecal impaction or pericolonic inflammation, may represent artifact related to underdistention. In the appropriate setting, consider mild mild proctocolitis. 3. Post cholecystectomy. The common bile duct is top-normal relative to age, similar to prior, likely within normal limits relative to cholecystectomy. Correlate with appropriate labs. If there is clinical reason to suspect biliary ductal pathology appears to be a cause of abdominal pain, consider ultrasound or MRCP 4. Stool burden is decreased compared with September 27, 2024 Dictated and Authenticated by: Trang Baldwin MD. Orderin Yokasta Curry MD
[2024-10-02 13:59] VITALS: BP 125/70; PULSE 85; RESP 16; O2SAT 99
[2024-10-02] MEDS: Ondansetron O.D.T. 4 MG TABEF, 3 TABS/BTL PO (14:01)
== END 2024-10-02 13:59 | disposition home or self-care (01) ==
PROVIDERS: Emergency Provider Registered Nurse Emergency; PCP Family Medicine
DX: R10.11 Right upper quadrant pain (principal); R11.0 Nausea
CPT/HCPCS: 36415; 80053; 93005; 96374; 99285; 74177; 81003; 83735; 85025; 93010; 99283; J2405; J3490

== ENCOUNTER 2024-10-15 23:31 | Emergency (ER) | payer OTHER, SELFPAY ==
--- NOTE | 2024-10-15 23:30 | RT.EKG_ITS ---
APPROVED REPORT Exam: Resting ECG Reason for Exam: chest pain Patient Location: E HR:87 bpm ECG Measurements Heart Rate 87 AXIS MT 176 P 46 QRSd 98 QRS 20 QT 372 T 39 QTc 448 Conclusion Sinus rhythm...normal P axis, V-rate 60- 99 Normal Electrocardiogram
[2024-10-15 23:34] VITALS: BP 145/91; PULSE 88; RESP 15; TEMP 37.1; O2SAT 98
--- NOTE | 2024-10-15 23:35 | ED.GENADUL_ITS ---
Discharge Plan Disposition Patient Disposition: Home Condition: Good Discharge Details Clinical Impression: Atypical chest pain, Dehydration, Hypercalcemia Primary Care Provider: Brendon Vivar ED Provider: Santiago Ibarra [place] Meds and New Rx's Prescriptions: Continued gabapentin 300 mg capsule 300 mg PO BID Qty: 180 3RF omeprazole 40 mg capsule,delayed release(DR/EC) 40 mg PO DAILY Qty: 90 3RF clonazepam 1 mg tablet 1 mg PO BID Qty: 55 1RF methadone 10 mg/5 mL solution 100 mg PO QAM calcitriol 0.5 mcg capsule 1 mcg PO .COMPLEX Qty: 270 3RF Rx Instructions: 1 mcg orally t2 tabs qam and 1 tab QHS; cyclobenzaprine 10 mg tablet 10 mg PO TID PRN (Reason: muscle spasm) Qty: 30 3RF calcium carbonate [Tums] 200 mg calcium (500 mg) tablet,chewable 2,000 mg PO BID prochlorperazine maleate 5 mg tablet 5 mg PO TID PRN (Reason: acute nausea) Qty: 30 0RF polyethylene glycol 3350 17 gram powder in packet 17 g PO BID PRN magnesium gluconate 27 mg magnesium (500 mg) tablet 13.5 mg PO TID Qty: 60 3RF Discharge Instructions Instructions: Dehydration, Adult ED Additional Instructions: You were seen for intermittent sharp chest pain with a normal EKG and chest x-ray. Your labs suggest some dehydration and elevated calcium for which you received a liter of saline. Continue to push fluids at home. Follow-up with primary care next week. Return to ED for any syncope, worsening or persistent chest pain, shortness of breath, persistent vomiting, other concerns. Referrals: Brendon Vivar DO [Primary Care Provider] - [facility] General Mode of arrival: ambulatory . Date/Time Provider Initiated Documentation: 10/15/24 23:35 . Limitations to Documentation: no limitations . Information obtained by: patient, RN notes reviewed and old records reviewed . HPI Narrative: Patient presents to ED with left-sided chest pain that began about an hour ago. It is intermittent lasting 10 to 15 seconds and sharp in nature. It is not repr oducible. He is not short of breath unless he is having the pain. He has no fever or cough. He has no abdominal complaints or vomiting. Pain is described as sharp and stabbing when it occurs. It does not radiate anywhere. His only cardiac risk factors are family history and obesity. He has no leg pain or leg swelling. He reports that sometimes when his electrolytes get messed up he will get palpitations or pain like this. Related Data Home Medications ?Medication ?Instructions ?Recorded ?Confirmed calcium carbonate (Tums) 2,000 mg PO BID 02/02/23 10/15/24 methadone 10 mg/5 mL oral solution 100 mg PO QAM 06/12/23 10/15/24 prochlorperazine maleate 5 mg 5 mg PO TID PRN acute nausea #30 09/06/23 10/15/24 tablet tabs magnesium gluconate 27 mg 13.5 mg (1/2 x 27 mg magnesium 11/21/23 10/15/24 magnesium (500 mg) tablet (500 mg)) PO TID #60 tabs gabapentin 300 mg capsule 300 mg PO BID #180 caps 06/01/24 10/15/24 calcitriol 0.5 mcg capsule 1 mcg (2 x 0.5 mcg) PO .COMPLEX 06/29/24 10/15/24 #270 caps omeprazole 40 mg capsule,delayed 40 mg PO DAILY #90 caps 07/27/24 10/15/24 release clonazepam 1 mg tablet 1 mg PO BID #55 tabs 08/24/24 10/15/24 cyclobenzaprine 10 mg tablet 10 mg PO TID PRN muscle spasm #30 10/11/24 10/15/24 tabs polyethylene glycol 3350 17 gram 17 g PO BID PRN 10/15/24 10/15/24 oral powder packet Previous Rx's ?Medication ?Instructions ?Recorded prochlorperazine maleate 5 mg 5 mg PO TID PRN acute nausea #30 09/06/23 tablet tabs magnesium gluconate 27 mg 13.5 mg (1/2 x 27 mg magnesium 11/21/23 magnesium (500 mg) tablet (500 mg)) PO TID #60 tabs gabapentin 300 mg capsule 300 mg PO BID #180 caps 06/01/24 calcitriol 0.5 mcg capsule 1 mcg (2 x 0.5 mcg) PO .COMPLEX 06/29/24 #270 caps omeprazole 40 mg capsule,delayed 40 mg PO DAILY #90 caps 07/27/24 release clonazepam 1 mg tablet 1 mg PO BID #55 tabs 08/24/24 cyclobenzaprine 10 mg tablet 10 mg PO TID PRN muscle spasm #30 10/11/24 tabs Allergies Allergy/AdvReac Type Severity Reaction Status Date / Time codeine Allergy Intermediate pass out Verified 10/15/24 23:42 Penicillins Allergy Skin Rash Verified 10/15/24 23:42 marijuana (cannabis) AdvReac Severe Paranoia Verified 10/15/24 23:42 amoxicillin AdvReac Intermediate Nausea Verified 10/15/24 23:42 dextromethorphan (From AdvReac Intermediate got Verified 10/15/24 23:42 NyQuil) really hot and sweaty doxylamine (From NyQuil) AdvReac Intermediate got Verified 10/15/24 23:42 really hot and sweaty pseudoephedrine (From NyQuil) AdvReac Intermediate got Verified 10/15/24 23:42 really hot and sweaty General ADRIANA: 3 Exam Narrative Exam Narrative: Const: Obese male in NAD. VS per triage. HEENT: NC/AT. Normal facial exam. Neck: Supple. Trachea midline. Lungs: Normal respiratory effort. Lungs are clear. Chest wall NT. Cor: RRR without murmur. Good radial pulses. GI: Soft/ND/NT. Neuro: A+O x 3. Normal speech, mentation, gait. Cranial nerves II - XII grossly intact. No gross motor or sensory deficit. Ext: No C/C/E. No calf tenderness. Medical Decision Making Patient presenting to the ED with complaint of left-sided chest pain that is short-lived and intermittent, somewhat pleuritic. Patient has many ED visits for various complaints, most recently abdominal pain in September. He does have problems with electrolyte disturbances due to his MEN. His EKG obtained at [facility] is normal per my read. His presentation is inconsistent with ACS and his HEAR score is 1. I do not feel this is cardiac and do not feel that troponins are necessary. Likewise, his Wells score for PE is low risk and he subsequently PERCs out. He does report that electrolyte imbalances will sometimes cause chest pain and arrhythmias so we will get a BMP and magnesium. Will also obtain chest x-ray though saturations are normal, lungs are clear and pain is not persistent but intermittent. Will treat with ketorolac. He did take acetaminophen 1 hour ago. Patient's laboratory studies with elevated calcium and kidney function with some contraction alkalosis suggesting need for fluids. Liter of saline given. Ketorolac has helped with his symptoms. Chest x-ray per my read unremarkable with no acute cardiopulmonary process. Discussed with patient. Will continue hydration at home once a liter of saline is in. Follow-up with primary care next week. Return precautions provided. Medical Records Medical records reviewed: Yes I reviewed the patient's medical records. Imaging Data Radiologic Study: Attestation: I personally reviewed and interpreted this imaging study as follows: Imaging: X-Ray My impression: see [facility] Lab Data Lab results reviewed: Yes I reviewed the patient's lab results. Lab results narrative: see [facility] ECG Data Attestation: I personally reviewed and interpreted this ECG (s) as follows: Prior ECG tracings: available for review Interpretation: Normal Quality:SDOH Health Related Social Needs: Health related social needs problems with daily activi ties (Z73.9) [facility] All Active Problems (Updated 10/16/24 @ 01:10 by Santiago Ibarra MD) Hypercalcemia (Acute) Dehydration (Acute) Atypical chest pain (Acute) Cubital tunnel syndrome (Acute) Carpal tunnel syndrome of right wrist (Acute) Fatty liver (Acute) IBS (irritable bowel syndrome) (Chronic) Obesity (Chronic) Migraine with aura (Acute) Testicle lump (Acute) Pes anserine bursitis (Acute) Cervical radiculopathy (Acute) Left-sided Flower's palsy (Acute) Constipation (Acute) Grief reaction (Chronic) Opiate dependence, continuous (Acute) 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 Possible 2' Methadone, Clnzpm (?). Surg eval (+)/No further action. History of electrolyte imbalance (Acute) Neck pain on left side (Acute) with shoulder, upper back pain.. torticollis, radiating into left hip/leg Pulmonary nodule 1 cm or greater in diameter (Chronic) Therapeutic opioid induced constipation (Acute) Sphincter of Oddi dysfunction (Chronic) Abnormal CT scan, kidney (Acute) Intrahepatic bile duct dilation (Acute) Common bile duct dilatation (Chronic) Has been dilated for quite some time, now more-so. Normal LFTs. Known gallstones. Iatrogenic hypocalcemia (Acute) Multiple endocrine neoplasia type I (Chronic) Depression (Chronic) Hypocalcemia (Chronic) Elevated parathyroid hormone (Acute) Family history of coronary arteriosclerosis (Chronic) Father of PR at 50, mother had PR at 42 Severe anxiety with panic (Chronic) Medical History CKD (chronic kidney disease) stage 2, GFR 60-89 ml/min GFR 64-65, with Hx FLORESITA and GFR < 45 Primary hyperparathyroidism Complex medical condition Serious electrolyte imbalances, with gynecomastia, possible MEN Dx, CKD and anemia with baseline anxiety and Hx PTSD. Hypocalcemia Anxiety Depression Hyperlipidemia Family history of multiple endocrine neoplasia, type 1 PTSD (post-traumatic stress disorder) Per pt. states no triggers at this time. Surgical History History of laparoscopic cholecystectomy (~11/2023) H/O parathyroidectomy Family History Mother Anxiety Asthma Depression Sister Anxiety Depression Father Cancer lung & stomach Depression Diabetes Hypertension MEN 1 (multiple endocrine neoplasia) Social History Smoking/Tobacco Use Status: Never Smoking risk assessment performed?: Yes Alcohol Intake: current Alcohol Intake frequency: holidays/special occasions only Alcohol type: beer Drug use: Current Sobriety Substance use type: former substance user, crack/cocaine, heroin and painkillers Details: stopped using substances for the past 4 years Adopted: No Caregiver/Support person: No Foster care: No Household members: none Housing: apartment Number of Children: 0 Communication Needs: None Education Level: high school Do you need help understanding health information?: Never current occupation: [employer] Pets and animals: Yes (Ally) Pets and animals: dog(s) Sexually active: No Do you think of yourself as: straight/heterosexual Current gender identity: male What is your relationship status?: How often do you talk on the phone with friends or family?: twice per week How often do you get together with friends or relatives?: never Do you belong to any clubs or organized social groups?: no Panel score (0-1 are the most socially isolated patients): 0 What type of physical activity do you participate in: walking Duration: 15-30 minutes/day Frequency: 5-6 times per week Maryam/Jewish: Sabianist Special maryam needs: No Seatbelt use: always Helmet use: Yes Helmet use: always Drive intox or ride w/intox xm1 tank driver: No Do you feel safe at home: Yes Do you feel safe in your relationship?: Yes
--- NOTE | 2024-10-16 | DI.RAD_ITS ---
Exam(s) XR CHEST 2V PA LATERAL EXAM: XR CHEST 2V PA LATERAL CLINICAL HISTORY: CP TECHNIQUE: 2D digital imaging was performed. Two views. COMPARISON: CR XR CHEST 2V PA LATERAL from 08/26/2024 FINDINGS: HEART: Normal size. Aorta: Not dilated. PULMONARY VASCULATURE: Normal. MEDIASTINUM: Unremarkable. LUNGS: Clear. PLEURAL SPACE: No pleural effusion or pneumothorax. BONE:Unremarkable for age. SOFT TISSUES: Unremarkable. IMPRESSION: No acute abnormality. DATA REPOSITORY: RADIATION DOSE DELIVERED:
[2024-10-16] MEDS: Ketorolac 15 MG/ML VIAL IVP (00:14)
[2024-10-16 00:30] LABS: Anion Gap 2.3 mmol/L (3-11); BUN 19 mg/dL (7-18); CO2 36.7 mmol/L (21.0-32.0); Chloride 100 mmol/L (98-107); Estimated GFR 44.92 (mL/min/1.73m2); Glucose 95 mg/dL (74-106); Potassium 3.9 mmol/L (3.5-5.1); Sodium 139 mmol/L (136-145)
[2024-10-16] MEDS: Normal Saline 1,000 ML 1000 ML IV (00:48)
--- NOTE | 2024-10-16 00:58 | DI.VRAD_ITS ---
PROCEDURE INFORMATION: Exam: XR Chest Exam date and time: 10/16/2024 12:22 AM Age: 29 years old Clinical indication: Chest pain TECHNIQUE: Imaging protocol: Radiologic exam of the chest. Views: 2 views. COMPARISON: CR XR CHEST 2V PA LATERAL 08/26/2024 12:45 PM FINDINGS: Lungs: No alveolar infiltrate. Pleural spaces: No pleural fluid collection. No pneumothorax. Heart/Mediastinum: Normal heart size. Bones/joints: Unremarkable for patient age. IMPRESSION: No active pulmonary disease. No acute change compared to 08/26/2024. Dictated and Authenticated by: Peirce Larose MD. Orderin Fred Henderson MD
[2024-10-16 02:00] VITALS: BP 105/53; PULSE 74; RESP 17; TEMP 36.8; O2SAT 97
== END 2024-10-16 02:03 | disposition home or self-care (01) ==
PROVIDERS: Emergency Provider Emergency Medicine; PCP Family Medicine
DX: R07.89 Other chest pain (principal); E89.2 Postprocedural hypoparathyroidism; N18.2 Chronic kidney disease, stage 2 (mild); E78.5 Hyperlipidemia, unspecified; E86.0 Dehydration; E83.52 Hypercalcemia
CPT/HCPCS: 36415; 80048; 93005; 96361; 96374; 99285; 71046; 83735; 93010; J1885

== ENCOUNTER 2024-10-16 21:39 | Emergency (ER) | payer OTHER, SELFPAY ==
[2024-10-16 21:41] VITALS: BP 131/95; PULSE 105; RESP 18; TEMP 36.8; O2SAT 96
--- NOTE | 2024-10-16 21:47 | W.ED.GENAD ---
Discharge Plan Disposition Patient Disposition: Home Condition: Stable Discharge Details Clinical Impression: Muscle spasm Primary Care Provider: Brendon Vivar ED Provider: Ricardo Crabtree Home Meds and New Rx's Prescriptions: New cyclobenzaprine 10 mg tablet 10 mg PO TID PRNQty: 20 0RF Continued gabapentin 300 mg capsule 300 mg PO BID Qty: 180 3RF omeprazole 40 mg capsule,delayed release(DR/EC) 40 mg PO DAILY Qty: 90 3RF clonazepam 1 mg tablet 1 mg PO BID Qty: 55 1RF methadone 10 mg/5 mL solution 100 mg PO QAM calcitriol 0.5 mcg capsule 1 mcg PO .COMPLEX Qty: 270 3RF Rx Instructions: 1 mcg orally t2 tabs qam and 1 tab QHS; cyclobenzaprine 10 mg tablet 10 mg PO TID PRN (Reason: muscle spasm) Qty: 30 3RF calcium carbonate [Tums] 200 mg calcium (500 mg) tablet,chewable 2,000 mg PO BID prochlorperazine maleate 5 mg tablet 5 mg PO TID PRN (Reason: acute nausea) Qty: 30 0RF polyethylene glycol 3350 17 gram powder in packet 17 g PO BID PRN magnesium gluconate 27 mg magnesium (500 mg) tablet 13.5 mg PO TID Qty: 60 3RF Discharge Instructions Additional Instructions: Follow-up with your primary care provider. Make sure you are drinking plenty of fluids to stay hydrated. HPI General Mode of arrival: ambulatory. Date/Time Provider Initiated Documentation: 10/16/24 21:39. Limitations to Documentation: no limitations. Information obtained by: patient. History of Present Illness 29 year old M presents to the emergency department with the chief complaint of left forearm pain, described as moderate, Quality is described as aching, and is localized to the lower extremity. Patient started experiencing this hour(s) (2) and it has been constant. No relieving factors improve symptom(s), No exacerbating factors reported . Patient notes no other symptoms.. Patient did receive the following treatments prior to arrival, none Related Data Home Medications ?Medication ?Instructions ?Recorded ?Confirmed calcium carbonate (Tums) 2,000 mg PO BID 02/02/23 10/16/24 methadone 10 mg/5 mL oral solution 100 mg PO QAM 06/12/23 10/16/24 prochlorperazine maleate 5 mg 5 mg PO TID PRN acute nausea #30 09/06/23 10/16/24 tablet tabs magnesium gluconate 27 mg 13.5 mg (1/2 x 27 mg magnesium 11/21/23 10/16/24 magnesium (500 mg) tablet (500 mg)) PO TID #60 tabs gabapentin 300 mg capsule 300 mg PO BID #180 caps 06/01/24 10/16/24 calcitriol 0.5 mcg capsule 1 mcg (2 x 0.5 mcg) PO .COMPLEX 06/29/24 10/16/24 #270 caps omeprazole 40 mg capsule,delayed 40 mg PO DAILY #90 caps 07/27/24 10/16/24 release clonazepam 1 mg tablet 1 mg PO BID #55 tabs 08/24/24 10/16/24 cyclobenzaprine 10 mg tablet 10 mg PO TID PRN muscle spasm #30 10/11/24 10/16/24 tabs polyethylene glycol 3350 17 gram 17 g PO BID PRN 10/15/24 10/16/24 oral powder packet cyclobenzaprine 10 mg tablet 10 mg PO TID PRN #20 tabs 10/16/24 Previous Rx's ?Medication ?Instructions ?Recorded prochlorperazine maleate 5 mg 5 mg PO TID PRN acute nausea #30 09/06/23 tablet tabs magnesium gluconate 27 mg 13.5 mg (1/2 x 27 mg magnesium 11/21/23 magnesium (500 mg) tablet (500 mg)) PO TID #60 tabs gabapentin 300 mg capsule 300 mg PO BID #180 caps 06/01/24 calcitriol 0.5 mcg capsule 1 mcg (2 x 0.5 mcg) PO .COMPLEX 06/29/24 #270 caps omeprazole 40 mg capsule,delayed 40 mg PO DAILY #90 caps 07/27/24 release clonazepam 1 mg tablet 1 mg PO BID #55 tabs 08/24/24 cyclobenzaprine 10 mg tablet 10 mg PO TID PRN muscle spasm #30 10/11/24 tabs cyclobenzaprine 10 mg tablet 10 mg PO TID PRN #20 tabs 10/16/24 Allergies Allergy/AdvReac Type Severity Reaction Status Date / Time codeine Allergy Intermediate pass out Verified 10/16/24 21:49 Penicillins Allergy Skin Rash Verified 10/16/24 21:49 marijuana (cannabis) AdvReac Severe Paranoia Verified 10/16/24 21:49 amoxicillin AdvReac Intermediate Nausea Verified 10/16/24 21:49 dextromethorphan (From AdvReac Intermediate got Verified 10/16/24 21:49 NyQuil) really hot and sweaty doxylamine (From NyQuil) AdvReac Intermediate got Verified 10/16/24 21:49 really hot and sweaty pseudoephedrine (From NyQuil) AdvReac Intermediate got Verified 10/16/24 21:49 really hot and sweaty General Stated Complaint: Orthopedic ADRIANA: 4 Review of Systems All systems reviewed & are unremarkable except as noted in HPI and below Constitutional Constitutional: Denies chills, Denies fever(s) and Denies weakness Cardiovascular Cardiovascular: Denies chest pain and Denies dyspnea Respiratory Respiratory: Denies cough and Denies dyspnea Gastrointestinal Gastrointestinal: Denies abdominal pain, Denies nausea and Denies vomiting Musculoskeletal Musculoskeletal: Denies joint swelling Neurologic Neurologic: Denies weakness Psychiatric Psychiatric: Denies depression Exam Const General: no acute distress Orientation: alert HENAK Head: normal to inspection Ears: external ears normal General nose exam: external nose normal Mouth: moist mucous membranes Eyes General: appearance normal, both eyes and all related structures Neck Neck: normal visual inspection Resp Effort & Inspection: normal respiratory effort and able to speak in complete sentences Cardio Rate: regular rate Skin General skin exam: no rashes or lesions noted Neuro General: patient alert and patient oriented x3 Extrem General: full ROM and capillary refill normal Psych Mental Status: mental status grossly normal Course Vital Signs Vital signs: Vital Signs Temperature 36.8 C 10/16/24 21:41 Pulse 105 H 10/16/24 21:41 Respiratory Rate 18 10/16/24 21:41 Blood Pressure 131/95 H 10/16/24 21:41 Pulse Oximetry 96 10/16/24 21:41 Temperature 36.8 C 10/16/24 21:41 Temperature Source Temporal Artery Scan 10/16/24 21:41 Pulse 105 H 10/16/24 21:41 Respiratory Rate 18 10/16/24 21:41 Blood Pressure 131/95 H 10/16/24 21:41 Blood Pressure Position Sitting 10/16/24 21:41 Pulse Oximetry 96 10/16/24 21:41 Oxygen Delivery Method Room Air 10/16/24 21:41 Oxygen Flow Rate 0 10/16/24 21:41 Pain Level 7 10/16/24 21:41 Medical Decision Making 29-year-old male with a history of multiple endocrine neoplasia comes in with left forearm pain. 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 He denies any falls or other injuries. He has no pain elsewhere. He has full range of motion of his joints in the left arm. He has intact pulses and cap refill. He has no visible palpable deformities of the arm though his anterior left forearm does feel like his muscles are spasming. No signs of infection on exam. I will treat his symptoms with Valium and reassess. Given he did not fall he has no bony tenderness I doubt fracture do not feel x-rays are indicated. And he has noticed skin discoloration and intact distal pulses so doubt entities such as arterial occlusion. Patient feels better and no longer has palpable muscle spasm. Will provide him with a muscle relaxer to take at home as needed, advised to follow-up with his PCP and return precautions given Differential Diagnosis Differential Diagnosis: Muscle spasm, strain, overuse Quality:SDOH Health Related Social Needs: Health related social needs problems with daily activities (Z73.9) [facility] All Active Problems (Updated 10/16/24 @ 21:50 by Ricardo Crabtree MD) Muscle spasm (Acute) Hypercalcemia (Acute) Dehydration (Acute) Atypical chest pain (Acute) Cubital tunnel syndrome (Acute) Carpal tunnel syndrome of right wrist (Acute) Fatty liver (Acute) IBS (irritable bowel syndrome) (Chronic) Obesity (Chronic) Migraine with aura (Acute) Testicle lump (Acute) Pes anserine bursitis (Acute) Cervical radiculopathy (Acute) Left-sided Flower's palsy (Acute) Constipation (Acute) Grief reaction (Chronic) Opiate dependence, continuous (Acute) 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 Possible 2' Methadone, Clnzpm (?). Surg eval (+)/No further action. History of electrolyte imbalance (Acute) Neck pain on left side (Acute) with shoulder, upper back pain.. torticollis, radiating into left hip/leg Pulmonary nodule 1 cm or greater in diameter (Chronic) Therapeutic opioid induced constipation (Acute) Sphincter of Oddi dysfunction (Chronic) Abnormal CT scan, kidney (Acute) Intrahepatic bile duct dilation (Acute) Common bile duct dilatation (Chronic) Has been dilated for quite some time, now more-so. Normal LFTs. Known gallstones. Iatrogenic hypocalcemia (Acute) Multiple endocrine neoplasia type I (Chronic) Depression (Chronic) Hypocalcemia (Chronic) Elevated parathyroid hormone (Acute) Family history of coronary arteriosclerosis (Chronic) Father of [place] at 50, mother had AK at 42 Severe anxiety with panic (Chronic) Medical History CKD (chronic kidney disease) stage 2, GFR 60-89 ml/min GFR 64-65, with Hx FLORESITA and GFR < 45 Primary hyperparathyroidism Complex medical condition Serious electrolyte imbalances, with gynecomastia, possible MEN Dx, CKD and anemia with baseline anxiety and Hx PTSD. Hypocalcemia Anxiety Depression Hyperlipidemia Family history of multiple endocrine neoplasia, type 1 PTSD (post-traumatic stress disorder) Per pt. states no triggers at this time. Surgical History History of laparoscopic cholecystectomy (~11/2023) H/O parathyroidectomy Family History Mother Anxiety Asthma Depression Sister Anxiety Depression Father Cancer lung & stomach Depression Diabetes Hypertension MEN 1 (multiple endocrine neoplasia) Social History Smoking/Tobacco Use Status: Never Smoking risk assessment performed?: Yes Alcohol Intake: current Alcohol Intake frequency: holidays/special occasions only Alcohol type: beer Drug use: Current Sobriety Substance use type: former substance user, crack/cocaine, heroin and painkillers Details: stopped using substances for the past 4 years Adopted: No Caregiver/Support person: No Foster care: No Household members: none Housing: apartment Number of Children: 0 Communication Needs: None Education Level: high school Do you need help understanding health information?: Never 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[employer] Pets and animals: Yes (Ally) Pets and animals: dog(s) Sexually active: No Do you think of yourself as: straight/heterosexual Current gender identity: male What is your relationship status?: How often do you talk on the phone with friends or family?: twice per week How often do you get together with friends or relatives?: never Do you belong to any clubs or organized social groups?: no Panel score (0-1 are the most socially isolated patients): 0 What type of physical activity do you participate in: walking Duration: 15-30 minutes/day Frequency: 5-6 times per week Maryam/Jew: Buddhism Special maryam needs: No Seatbelt use: always Helmet use: Yes Helmet use: always Drive intox or ride w/intox tank driver: No Do you feel safe at home: Yes Do you feel safe in your relationship?: Yes
[2024-10-16] MEDS: diazePAM 10 MG/2 ML SYR 5 MG IM (21:55)
[2024-10-16] MEDS: Cyclobenzaprine 10 MG TAB, 3 TABS/BTL PO (22:35)
[2024-10-16 22:36] VITALS: BP 150/72; PULSE 90; RESP 18; TEMP 36.8; O2SAT 99
== END 2024-10-16 22:38 | disposition home or self-care (01) ==
PROVIDERS: Emergency Provider Emergency Medicine; PCP Family Medicine
DX: M79.632 Pain in left forearm (principal); R00.0 Tachycardia, unspecified; M62.838 Other muscle spasm; E89.2 Postprocedural hypoparathyroidism; E78.5 Hyperlipidemia, unspecified; N18.2 Chronic kidney disease, stage 2 (mild)
CPT/HCPCS: 99283; J3360

== ENCOUNTER 2024-10-18 12:04 | Emergency (ER) | payer OTHER, SELFPAY ==
--- NOTE | 2024-10-18 12:00 | RT.EKG_ITS ---
APPROVED REPORT Exam: Resting ECG Reason for Exam: high calcium Patient Location: E HR:103 bpm ECG Measurements Heart Rate 103 AXIS OR 158 P 35 QRSd 94 QRS 31 QT 337 T 15 QTc 443 Conclusion Sinus tachycardia. 103 normal axis no stmei
[2024-10-18 12:09] VITALS: BP 130/90; PULSE 111; RESP 18; TEMP 36.6; O2SAT 94
[2024-10-18 12:43] LABS: Abs Immature Grans 0.04 10^3/uL (0.0-0.06); Absolute Basophil Count 0.03 10^3/uL (0.0-0.2); Absolute Eosinophil Count 0.18 10^3/uL (0.0-0.7); Absolute Lymphocyte Count 1.91 10^3/uL (1.2-3.4); Absolute Monocyte Count 0.75 10^3/uL (0.1-0.8); Absolute Neutrophil Count 5.29 10^3/uL (1.2-6.7); Basophils % 0.4 %; Eosinophils % 2.2 %; HCT 35.5 % (40.0-50.0); HGB 10.9 g/dL (13.5-17.5); Immature Grans % 0.5 %; Lymphocytes % 23.3 %; MCH 26.2 pg (27.0-33.0); MCHC 30.7 % (32.0-36.0); MCV 85 fL (80-95); MPV 9.6 fL (8.0-11.0); Monocytes % 9.1 %; Neutrophils % 64.5 %; Platelet Count 402 10^3/uL (130-400); RBC 4.16 10^6/uL (4.36-5.78); RDW 16.8 % (11.8-14.1)
[2024-10-18 13:02] LABS: ALT 64 U/L (16-63); AST 57 U/L (15-37); Albumin 3.2 g/dL (3.4-5.0); Alkaline Phosphatase 177 U/L (46-116); Anion Gap 5.8 mmol/L (3-11); BUN 20 mg/dL (7-18); Bilirubin, Total 0.3 mg/dL (0.2-1.0); CO2 32.2 mmol/L (21.0-32.0); CREATININE 1.9 mg/dL (0.70-1.30); Calcium 9.9 mg/dL (8.5-10.1); Chloride 101 mmol/L (98-107); Estimated GFR 47.77 (mL/min/1.73m2); Glucose 111 mg/dL (74-106); Potassium 3.8 mmol/L (3.5-5.1); Sodium 139 mmol/L (136-145); Total Protein 8.1 g/dL (6.4-8.2)
--- NOTE | 2024-10-18 13:09 | W.ED.GENAD ---
Discharge Plan Disposition Patient Disposition: Home Condition: Stable Discharge Details Clinical Impression: Facial flushing Primary Care Provider: Brendon Vivar ED Provider: Richy Oakes Home Meds and New Rx's Prescriptions: Continued gabapentin 300 mg capsule 300 mg PO BID Qty: 180 3RF omeprazole 40 mg capsule,delayed release(DR/EC) 40 mg PO DAILY Qty: 90 3RF methadone 10 mg/5 mL solution 100 mg PO QAM calcitriol 0.5 mcg capsule 1 mcg PO .COMPLEX Qty: 270 3RF Rx Instructions: 1 mcg orally t2 tabs qam and 1 tab QHS; cyclobenzaprine 10 mg tablet 10 mg PO TID PRN (Reason: muscle spasm) Qty: 30 3RF calcium carbonate [Tums] 200 mg calcium (500 mg) tablet,chewable 2,000 mg PO BID prochlorperazine maleate 5 mg tablet 5 mg PO TID PRN (Reason: acute nausea) Qty: 30 0RF polyethylene glycol 3350 17 gram powder in packet 17 g PO BID PRN magnesium gluconate 27 mg magnesium (500 mg) tablet 13.5 mg PO TID Qty: 60 3RF cyclobenzaprine 10 mg tablet 10 mg PO TID PRNQty: 20 0RF No Action clonazepam 1 mg tablet 1 mg PO BID Qty: 56 1RF lorazepam 1 mg tablet 1 mg PO DAILY PRN (Reason: anxiety) Qty: 10 0RF Rx Instructions: Use when considering ER visit Discharge Instructions Additional Instructions: You were seen in the emergency department for your request for laboratory testing of your electrolytes, calcium, potassium, and magnesium are all within normal limits, I am unsure what is causing the right side of your face to feel flushed but I do not feel it is an emergency. Please monitor your condition at home take an [id number] antihistamine if desired to see if that helps the facial flushing. Please return for any severe increase in pain or tingling or weakness or any other emergent concern. Referrals: Brendon Vivar DO [Primary Care Provider] - Discharge Data Discharge Date/Time-TO BE ENTERED AT DEPARTURE: 10/18/24 13:33 HPI General Date/Time Provider Initiated Documentation: 10/18/24 12:13. HPI Narrative: 29 year-old male presents to ED today by POV/ambulating with a chief complaint of feels as though his calcium is high with onset over the past day or two. Quality described as tingling, R sided facial flushing, muscle twitches, palpitations, no radiation to active spasm, nausea, vomiting, constipation/diarrhea, chest pain, respiratory distress, recent URI. Severity is described as severe. Palliating factors include nothing specific attempted. Provoking factors include nothing specific. Patient not anticoagulated. Related Data Home Medications ?Medication ?Instructions ?Recorded ?Confirmed calcium carbonate (Tums) 2,000 mg PO BID 02/02/23 10/19/24 methadone 10 mg/5 mL oral solution 100 mg PO QAM 06/12/23 10/19/24 prochlorperazine maleate 5 mg 5 mg PO TID PRN acute nausea #30 09/06/23 10/19/24 tablet tabs magnesium gluconate 27 mg 13.5 mg (1/2 x 27 mg magnesium 11/21/23 10/19/24 magnesium (500 mg) tablet (500 mg)) PO TID #60 tabs gabapentin 300 mg capsule 300 mg PO BID #180 caps 06/01/24 10/19/24 calcitriol 0.5 mcg capsule 1 mcg (2 x 0.5 mcg) PO .COMPLEX 06/29/24 10/19/24 #270 caps omeprazole 40 mg capsule,delayed 40 mg PO DAILY #90 caps 07/27/24 10/19/24 release cyclobenzaprine 10 mg tablet 10 mg PO TID PRN muscle spasm #30 10/11/24 10/19/24 tabs polyethylene glycol 3350 17 gram 17 g PO BID PRN 10/15/24 10/19/24 oral powder packet cyclobenzaprine 10 mg tablet 10 mg PO TID PRN #20 tabs 10/16/24 10/19/24 clonazepam 1 mg tablet 1 mg PO BID #56 tabs 10/19/24 10/19/24 lorazepam 1 mg tablet 1 mg PO DAILY PRN anxiety #10 tabs 10/19/24 10/19/24 Previous Rx's ?Medication ?Instructions ?Recorded prochlorperazine maleate 5 mg 5 mg PO TID PRN acute nausea #30 09/06/23 tablet tabs magnesium gluconate 27 mg 13.5 mg (1/2 x 27 mg magnesium 11/21/23 magnesium (500 mg) tablet (500 mg)) PO TID #60 tabs gabapentin 300 mg capsule 300 mg PO BID #180 caps 06/01/24 calcitriol 0.5 mcg capsule 1 mcg (2 x 0.5 mcg) PO .COMPLEX 06/29/24 #270 caps omeprazole 40 mg capsule,delayed 40 mg PO DAILY #90 caps 07/27/24 release cyclobenzaprine 10 mg tablet 10 mg PO TID PRN muscle spasm #30 10/11/24 tabs cyclobenzaprine 10 mg tablet 10 mg PO TID PRN #20 tabs 10/16/24 clonazepam 1 mg tablet 1 mg PO BID #56 tabs 10/19/24 lorazepam 1 mg tablet 1 mg PO DAILY PRN anxiety #10 tabs 10/19/24 Allergies Allergy/AdvReac Type Severity Reaction Status Date / Time codeine Allergy Intermediate pass out Verified 10/19/24 11:32 Penicillins Allergy Skin Rash Verified 10/19/24 11:32 marijuana (cannabis) AdvReac Severe Paranoia Verified 10/19/24 11:32 amoxicillin AdvReac Intermediate Nausea Verified 10/19/24 11:32 dextromethorphan (From AdvReac Intermediate got Verified 10/19/24 11:32 NyQuil) really hot and sweaty doxylamine (From NyQuil) AdvReac Intermediate got Verified 10/19/24 11:32 really hot and sweaty pseudoephedrine (From NyQuil) AdvReac Intermediate got Verified 10/19/24 11:32 really hot and sweaty General Stated Complaint: GenMedical ADRIANA: 3 Review of Systems All systems reviewed & are unremarkable except as noted in HPI and below Exam Narrative Exam Narrative: GENERAL APPEARANCE: Well-nourished, non-toxic, awake and alert, atraumatic, no acute distress. SKIN: Warm, pink, dry, intact, without rashes/lesions/ulcerations. HEAD: Normocephalic, atraumatic, normal hair distribution for gender/age. EYES: Normal conjunctiva, no exudates on lids/lashes. ENT: Nares patent, no circumoral cyanosis, no facial swelling NECK: Supple, trachea midline, painless cervical ROM. LUNGS/CHEST: Lungs CTA bilaterally, non-labored respirations, normal A/P diameter, symmetrical expansion, no chest wall deformity HEART (CV/PV): Regular rate and rhythm without murmur, no peripheral edema, no JVD. ABDOMEN: Soft, non-distended, no guarding. MSK: Normal ROM, no swelling/deformity to bilateral UEs or LEs, moving all extremities without weakness, no cyanosis, spine midline without tenderness, normal curvature. NEURO: Mental Status AAOx4 - alert to person, place, time, events No facial droop, no forehead involvement. Motor: No focal weakness - strength 5/5 in bilateral UEs and LEs, proximal and distal, symmetric. Sensory: sensation intact to light touch globally. Gait normal: patient ambulated without ataxia into ED room. PSYCH: euthymic, cooperative, pleasant, appropriate speech Course Vital Signs Vital signs: Vital Signs Temperature 36.6 C 10/18/24 12:09 Pulse 111 H 10/18/24 12:09 Respiratory Rate 18 10/18/24 12:09 Blood Pressure 130/90 10/18/24 12:09 Pulse Oximetry 94 10/18/24 12:09 Temperature 36.6 C 10/18/24 12:09 Temperature Source Oral 10/18/24 12:09 Pulse 111 H 10/18/24 12:09 Respiratory Rate 18 10/18/24 12:09 Blood Pressure 130/90 10/18/24 12:09 Blood Pressure Position Sitting 10/18/24 12:09 Pulse Oximetry 94 10/18/24 12:09 Oxygen Delivery Method Room Air 10/18/24 12:09 Oxygen Flow Rate 0 10/18/24 12:09 Lab/Test Results Lab/Test Results: Laboratory Tests Range/Units 10/18/24 12:37 WBC (4.4-10.8) 10^3/uL 8.20 RBC (4.36-5.78) 10^6/uL 4.16 L Hgb (13.5-17.5) g/dL 10.9 L Hct (40.0-50.0) % 35.5 L MCV (80-95) fL 85 MCH (27.0-33.0) pg 26.2 L MCHC (32.0-36.0) % 30.7 L RDW (11.8-14.1) % 16.8 H Plt Count (130-400) 10^3/uL 402 H MPV (8.0-11.0) fL 9.6 Immature Gran % % 0.5 Neutrophils % % 64.5 Lymphocytes % % 23.3 Monocytes % % 9.1 Eosinophils % % 2.2 Basophils % % 0.4 Nucleated RBC % (0.0-0.3) % 0.0 Absolute Neutrophils (1.2-6.7) 10^3/uL 5.29 Absolute Lymphocytes (1.2-3.4) 10^3/uL 1.91 Absolute Monocytes (0.1-0.8) 10^3/uL 0.75 Absolute Eosinophils (0.0-0.7) 10^3/uL 0.18 Absolute Basophils (0.0-0.2) 10^3/uL 0.03 Sodium (136-145) mmol/L 139 Potassium (3.5-5.1) mmol/L 3.8 Chloride (98-107) mmol/L 101 Carbon Dioxide (21.0-32.0) mmol/L 32.2 H Anion Gap (3-11) mmol/L 5.8 BUN (7-18) mg/dL 20 H Creatinine (0.70-1.30) mg/dL 1.9 H Est GFR (CKD-EPI 2020) (mL/min/1.73m2) 47.77 Glucose (74-106) mg/dL 111 H Calcium (8.5-10.1) mg/dL 9.9 Magnesium (1.8-2.4) mg/dL 2.0 Total Bilirubin (0.2-1.0) mg/dL 0.3 AST (15-37) U/L 57 H ALT (16-63) U/L 64 H Alkaline Phosphatase (46-116) U/L 177 H Total Protein (6.4-8.2) g/dL 8.1 Albumin (3.4-5.0) g/dL 3.2 L Medical Decision Making This dictation utilizes [id number] dictation software and may contain unedited grammatical errors. 29 year-old male presents to ED today by POV/ambulating with a chief complaint of feels as though his calcium is high with onset over the past day or two. Quality described as tingling, R sided facial flushing, muscle twitches, palpitations, no radiation to active spasm, nausea, vomiting, constipation/diarrhea, chest pain, respiratory distress, recent URI. Severity is described as severe. Palliating factors include nothing specific attempted. Provoking factors include nothing specific. Patients' medical history: CKD, primary hyperparathyroidism with parathyroidectomy, sphincter of Oddi dysfunction, anxiety. Family and social history: Noncontributory. Pertinent exam findings / vital signs include no observed facial flushing, neuro intact, benign abdomen, benign cardiopulmonary exam. Differential / pathologies of concern include anxiety, electrolyte derangement, allergic reaction. Diagnostic studies of: - CBC, CMP, magnesium. - No electrolyte abnormality observed, chronic anemia, chronic kidney disease at baseline Interventions of: - None. ED Course/Assessment/Plan: 29-year-old male well-known to the department presents with right-sided facial flushing, states this has happened before when his calcium is normal, he has no electrolyte derangement on laboratory studies, recommend a trial of zmop-zpr-kyfmsby allergy medication if this happens again but he was satisfied with reassuring lab values, he will try to hydrate better with a creatinine of 1.9. Strict strict return criteria for any emergent concern. Findings not consistent with electrolyte derangement, arrhythmia, ongoing allergic reaction. Disposition of Facial Flushing. Patient verbalized understanding of the plan and return to ED criteria and engaged in shared decision making. Medical Records Medical records reviewed: Yes I reviewed the patient's medical records. Lab Data Lab results reviewed: Yes I reviewed the patient's lab results. Labs: Laboratory Tests Range/Units 10/18/24 12:37 WBC (4.4-10.8) 10^3/uL 8.20 RBC (4.36-5.78) 10^6/uL 4.16 L Hgb (13.5-17.5) g/dL 10.9 L Hct (40.0-50.0) % 35.5 L MCV (80-95) fL 85 MCH (27.0-33.0) pg 26.2 L MCHC (32.0-36.0) % 30.7 L RDW (11.8-14.1) % 16.8 H Plt Count (130-400) 10^3/uL 402 H MPV (8.0-11.0) fL 9.6 Immature Gran % % 0.5 Neutrophils % % 64.5 Lymphocytes % % 23.3 Monocytes % % 9.1 Eosinophils % % 2.2 Basophils % % 0.4 Nucleated RBC % (0.0-0.3) % 0.0 Absolute Neutrophils (1.2-6.7) 10^3/uL 5.29 Absolute Lymphocytes (1.2-3.4) 10^3/uL 1.91 Absolute Monocytes (0.1-0.8) 10^3/uL 0.75 Absolute Eosinophils (0.0-0.7) 10^3/uL 0.18 Absolute Basophils (0.0-0.2) 10^3/uL 0.03 Sodium (136-145) mmol/L 139 Potassium (3.5-5.1) mmol/L 3.8 Chloride (98-107) mmol/L 101 Carbon Dioxide (21.0-32.0) mmol/L 32.2 H Anion Gap (3-11) mmol/L 5.8 BUN (7-18) mg/dL 20 H Creatinine (0.70-1.30) mg/dL 1.9 H Est GFR (CKD-EPI 2020) (mL/min/1.73m2) 47.77 Glucose (74-106) mg/dL 111 H Calcium (8.5-10.1) mg/dL 9.9 Magnesium (1.8-2.4) mg/dL 2.0 Total Bilirubin (0.2-1.0) mg/dL 0.3 AST (15-37) U/L 57 H ALT (16-63) U/L 64 H Alkaline Phosphatase (46-116) U/L 177 H Total Protein (6.4-8.2) g/dL 8.1 Albumin (3.4-5.0) g/dL 3.2 L Quality:SDOH Health Related Social Needs: Health related social needs problems with daily activities (Z73.9) PFSH All Active Problems (Updated 10/18/24 @ 13:18 by ANDREW Coleman) Facial flushing (Acute) Muscle spasm (Acute) Hypercalcemia (Acute) Dehydration (Acute) Atypical chest pain (Acute) Cubital tunnel syndrome (Acute) Carpal tunnel syndrome of right wrist (Acute) Fatty liver (Acute) IBS (irritable bowel syndrome) (Chronic) Obesity (Chronic) Migraine with aura (Acute) Testicle lump (Acute) Pes anserine bursitis (Acute) Cervical radiculopathy (Acute) Left-sided Flower's palsy (Acute) Constipation (Acute) Grief reaction (Chronic) Opiate dependence, continuous (Acute) 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 Possible 2' Methadone, Clnzpm (?). Surg eval (+)/No further action. History of electrolyte imbalance (Acute) Neck pain on left side (Acute) with shoulder, upper back pain.. torticollis, radiating into left hip/leg Pulmonary nodule 1 cm or greater in diameter (Chronic) Therapeutic opioid induced constipation (Acute) Sphincter of Oddi dysfunction (Chronic) Abnormal CT scan, kidney (Acute) Intrahepatic bile duct dilation (Acute) Common bile duct dilatation (Chronic) Has been dilated for quite some time, now more-so. Normal LFTs. Known gallstones. Iatrogenic hypocalcemia (Acute) Multiple endocrine neoplasia type I (Chronic) Depression (Chronic) Hypocalcemia (Chronic) Elevated parathyroid hormone (Acute) Family history of coronary arteriosclerosis (Chronic) Father of MA at 50, mother had MA at 42 Severe anxiety with panic (Chronic) Medical History CKD (chronic kidney disease) stage 2, GFR 60-89 ml/min GFR 64-65, with Hx FLORESITA and GFR < 45 Primary hyperparathyroidism Complex medical condition Serious electrolyte imbalances, with gynecomastia, possible MEN Dx, CKD and anemia with baseline anxiety and Hx PTSD. Hypocalcemia Anxiety Depression Hyperlipidemia Family history of multiple endocrine neoplasia, type 1 PTSD (post-traumatic stress disorder) Per pt. states no triggers at this time. Surgical History History of laparoscopic cholecystectomy (~11/2023) H/O parathyroidectomy Family History Mother Anxiety Asthma Depression Sister Anxiety Depression Father Cancer lung & stomach Depression Diabetes Hypertension MEN 1 (multiple endocrine neoplasia) Social History Smoking/Tobacco Use Status: Never Smoking risk assessment performed?: Yes Alcohol Intake: current Alcohol Intake frequency: holidays/special occasions only Alcohol type: beer Drug use: Current Sobriety Substance use type: former substance user, crack/cocaine, heroin and painkillers Details: stopped using substances for the past 4 years Adopted: No Caregiver/Support person: No Foster care: No Household members: none Housing: apartment Number of Children: 0 Communication Needs: None Education Level: high school Do you need help understanding health information?: Never current occupation: [employer] Pets and animals: Yes (Ally) Pets and animals: dog(s) Sexually active: No Do you think of yourself as: straight/heterosexual Current gender identity: male What is your relationship status?: How often do you talk on the phone with friends or family?: twice per week How often do you get together with friends or relatives?: never Do you belong to any clubs or organized social groups?: no Panel score (0-1 are the most socially isolated patients): 0 What type of physical activity do you participate in: walking Duration: 15-30 minutes/day Frequency: 5-6 times per week Maryam/Scientology: Scientologist Special maryam needs: No Seatbelt use: always Helmet use: Yes Helmet use: always Drive intox or ride w/intox horse and wagon driver: No Do you feel safe at home: Yes Do you feel safe in your relationship?: Yes
[2024-10-18 14:05] VITALS: BP 130/90; PULSE 111; RESP 18; TEMP 36.6; O2SAT 94
== END 2024-10-18 13:33 | disposition home or self-care (01) ==
PROVIDERS: Emergency Provider Physician Assistant; PCP Family Medicine
DX: R23.2 Flushing (principal); N18.2 Chronic kidney disease, stage 2 (mild); E78.5 Hyperlipidemia, unspecified; E89.2 Postprocedural hypoparathyroidism
CPT/HCPCS: 36415; 80053; 93005; 99284; 83735; 85025; 93010

== ENCOUNTER 2024-10-25 22:43 | Emergency (ER) | payer OTHER, SELFPAY ==
[2024-10-25 22:45] VITALS: BP 167/89; PULSE 117; RESP 18; TEMP 36.6; O2SAT 98
--- NOTE | 2024-10-25 22:47 | W.ED.GENAD ---
Discharge Plan Disposition Patient Disposition: Home Condition: Good Discharge Details Clinical Impression: Cervical radiculopathy Primary Care Provider: Brendon Vivar ED Provider: Santiago Ibarra Meds and New Rx's Prescriptions: Continued gabapentin 300 mg capsule 300 mg PO BID Qty: 180 3RF omeprazole 40 mg capsule,delayed release(DR/EC) 40 mg PO DAILY Qty: 90 3RF clonazepam 1 mg tablet 1 mg PO BID Qty: 56 1RF lorazepam 1 mg tablet 1 mg PO DAILY PRN (Reason: anxiety) Qty: 10 0RF Rx Instructions: Use when considering ER visit methadone 10 mg/5 mL solution 100 mg PO QAM calcitriol 0.5 mcg capsule 1 mcg PO .COMPLEX Qty: 270 3RF Rx Instructions: 1 mcg orally t2 tabs qam and 1 tab QHS; cyclobenzaprine 10 mg tablet 10 mg PO TID PRN (Reason: muscle spasm) Qty: 30 3RF calcium carbonate [Tums] 200 mg calcium (500 mg) tablet,chewable 2,000 mg PO BID prochlorperazine maleate 5 mg tablet 5 mg PO TID PRN (Reason: acute nausea) Qty: 30 0RF polyethylene glycol 3350 17 gram powder in packet 17 g PO BID PRN magnesium gluconate 27 mg magnesium (500 mg) tablet 13.5 mg PO TID Qty: 60 3RF cyclobenzaprine 10 mg tablet 10 mg PO TID PRNQty: 20 0RF Discharge Instructions Additional Instructions: You were seen for left-sided neck and shoulder pain with radiation down your arm similar to previous episodes. Likely related to some radiculopathy as well as muscle spasm. Your exam is reassuring. You were given a shot of ketorolac and had a lidocaine patch placed. Take one of the cyclobenzaprine's that you have from a previous visit here for spasm. You may continue use of ibuprofen and acetaminophen in an alternating fashion every 4 hours. Follow-up with your primary care this week. Return to ED for any neurologic change such as sensory deficit, weakness. Referrals: Brendon Vivar DO [Primary Care Provider] - [facility] General Mode of arrival: ambulatory. Date/Time Provider Initiated Documentation: 10/25/24 22:46. Limitations to Documentation: no limitations. Information obtained by: patient and RN notes reviewed. HPI Narrative: Patient presents to ED with complaint of left neck and shoulder pain with radiation down the back of his forearm to his fingers. Denies any numbness or weakness. Has had this before but not typically this persistent or as painful. Reports that he has had it since waking up this morning and turning his head toward the right while lowering his left arm. Denies any chest pain or shortness of breath. Has not taken anything at home for this. Related Data Home Medications ?Medication ?Instructions ?Recorded ?Confirmed calcium carbonate (Tums) 2,000 mg PO BID 02/02/23 10/25/24 methadone 10 mg/5 mL oral solution 100 mg PO QAM 06/12/23 10/25/24 prochlorperazine maleate 5 mg 5 mg PO TID PRN acute nausea #30 09/06/23 10/25/24 tablet tabs magnesium gluconate 27 mg 13.5 mg (1/2 x 27 mg magnesium 11/21/23 10/25/24 magnesium (500 mg) tablet (500 mg)) PO TID #60 tabs gabapentin 300 mg capsule 300 mg PO BID #180 caps 06/01/24 10/25/24 calcitriol 0.5 mcg capsule 1 mcg (2 x 0.5 mcg) PO .COMPLEX 06/29/24 10/25/24 #270 caps omeprazole 40 mg capsule,delayed 40 mg PO DAILY #90 caps 07/27/24 10/25/24 release cyclobenzaprine 10 mg tablet 10 mg PO TID PRN muscle spasm #30 10/11/24 10/25/24 tabs polyethylene glycol 3350 17 gram 17 g PO BID PRN 10/15/24 10/25/24 oral powder packet cyclobenzaprine 10 mg tablet 10 mg PO TID PRN #20 tabs 10/16/24 10/25/24 clonazepam 1 mg tablet 1 mg PO BID #56 tabs 10/19/24 10/25/24 lorazepam 1 mg tablet 1 mg PO DAILY PRN anxiety #10 tabs 10/19/24 10/25/24 Previous Rx's ?Medication ?Instructions ?Recorded prochlorperazine maleate 5 mg 5 mg PO TID PRN acute nausea #30 09/06/23 tablet tabs magnesium gluconate 27 mg 13.5 mg (1/2 x 27 mg magnesium 11/21/23 magnesium (500 mg) tablet (500 mg)) PO TID #60 tabs gabapentin 300 mg capsule 300 mg PO BID #180 caps 06/01/24 calcitriol 0.5 mcg capsule 1 mcg (2 x 0.5 mcg) PO .COMPLEX 06/29/24 #270 caps omeprazole 40 mg capsule,delayed 40 mg PO DAILY #90 caps 07/27/24 release cyclobenzaprine 10 mg tablet 10 mg PO TID PRN muscle spasm #30 10/11/24 tabs cyclobenzaprine 10 mg tablet 10 mg PO TID PRN #20 tabs 10/16/24 clonazepam 1 mg tablet 1 mg PO BID #56 tabs 10/19/24 lorazepam 1 mg tablet 1 mg PO DAILY PRN anxiety #10 tabs 10/19/24 Allergies Allergy/AdvReac Type Severity Reaction Status Date / Time codeine Allergy Intermediate pass out Verified 10/25/24 22:50 Penicillins Allergy Skin Rash Verified 10/25/24 22:50 marijuana (cannabis) AdvReac Severe Paranoia Verified 10/25/24 22:50 amoxicillin AdvReac Intermediate Nausea Verified 10/25/24 22:50 dextromethorphan (From AdvReac Intermediate got Verified 10/25/24 22:50 NyQuil) really hot and sweaty doxylamine (From NyQuil) AdvReac Intermediate got Verified 10/25/24 22:50 really hot and sweaty pseudoephedrine (From NyQuil) AdvReac Intermediate got Verified 10/25/24 22:50 really hot and sweaty General ADRIANA: 3 Exam Narrative Exam Narrative: Const: Obese male in NAD. VS per triage. HEENT: NC/AT. Normal facial exam. Neck: Supple. Trachea midline. Normal ROM. Lungs: Normal respiratory effort. Lungs are clear. Cor: RRR without murmur. Good radial pulses. Neuro: A+O x 3. Normal speech, mentation, gait. Cranial nerves II - XII grossly intact. No gross motor or sensory deficit. 5/5 strength in BUE all muscle groups. Ext: No C/C/E. Medical Decision Making Patient presenting to ED with left neck and shoulder pain with complaint of pain radiating down the back of his forearms to his hand. He has had this previously as documented in primary care notes. He reports that it is not usually this persistent or bothersome. He did not take anything at home for it. It has been present since about 530 this morning when he got up. It was provoked by turning his head to the right and lowering his left arm. His exam is reassuring. He has pulses distally. He is completely neurologically intact. Complains of pain with range of motion at the shoulder and neck but has normal range of motion. His lungs are clear and equal. Suspect cervical radiculopathy/trapezial spasm. Will place a lidocaine patch and give 15 mg IM ketorolac. Patient has cyclobenzaprine at home which he was prescribed last week for muscle spasm. He is encouraged to try this when he gets home. He may follow-up with his primary care this week. Return precautions provided. Medical Records Medical records reviewed: Yes I reviewed the patient's medical records. 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 Possible 2' Methadone, Clnzpm (?). Surg eval (+)/No further action. History of electrolyte imbalance (Acute) Neck pain on left side (Acute) with shoulder, upper back pain.. torticollis, radiating into left hip/leg Pulmonary nodule 1 cm or greater in diameter (Chronic) Therapeutic opioid induced constipation (Acute) Sphincter of Oddi dysfunction (Chronic) Abnormal CT scan, kidney (Acute) Intrahepatic bile duct dilation (Acute) Common bile duct dilatation (Chronic) Has been dilated for quite some time, now more-so. Normal LFTs. Known gallstones. Depression (Chronic) Elevated parathyroid hormone (Acute) Family history of coronary arteriosclerosis (Chronic) Father of [place] at 50, mother had [place] at 42 Severe anxiety with panic (Chronic) Medical History Multiple endocrine neoplasia type I CKD (chronic kidney disease) stage 2, GFR 60-89 ml/min GFR 64-65, with Hx FLORESITA and GFR < 45 Primary hyperparathyroidism Complex medical condition Serious electrolyte imbalances, with gynecomastia, possible MEN Dx, CKD and anemia with baseline anxiety and Hx PTSD. Hypocalcemia Anxiety Depression Hyperlipidemia Family history of multiple endocrine neoplasia, type 1 PTSD (post-traumatic stress disorder) Per pt. states no triggers at this time. Surgical History History of laparoscopic cholecystectomy (~11/2023) H/O parathyroidectomy Family History Mother Anxiety Asthma Depression Sister Anxiety Depression Father Cancer lung & stomach Depression Diabetes Hypertension MEN 1 (multiple endocrine neoplasia) Social History Smoking/Tobacco Use Status: Never Smoking risk assessment performed?: Yes Alcohol Intake: current Alcohol Intake frequency: holidays/special occasions only Alcohol type: beer Drug use: Current Sobriety Substance use type: former substance user, crack/cocaine, heroin and painkillers Details: stopped using substances for the past 4 years Adopted: No Caregiver/Support person: No Foster care: No Household members: none Housing: apartment Number of Children: 0 Communication Needs: None Education Level: high school Do you need help understanding health information?: Never 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[employer] Pets and animals: Yes (Ally) Pets and animals: dog(s) Sexually active: No Do you think of yourself as: straight/heterosexual Current gender identity: male What is your relationship status?: How often do you talk on the phone with friends or family?: twice per week How often do you get together with friends or relatives?: never Do you belong to any clubs or organized social groups?: no Panel score (0-1 are the most socially isolated patients): 0 What type of physical activity do you participate in: walking Duration: 15-30 minutes/day Frequency: 5-6 times per week Maryam/Hindu: L[employer] Special maryam needs: No Seatbelt use: always Helmet use: Yes Helmet use: always Drive intox or ride w/intox drive away driver: No Do you feel safe at home: Yes Do you feel safe in your relationship?: Yes
[2024-10-25] MEDS: Lidocaine 5% Patch 1 PATCH TP (23:10)
[2024-10-25] MEDS: Ketorolac 15 MG/ML VIAL IM (23:10)
== END 2024-10-25 23:16 | disposition home or self-care (01) ==
PROVIDERS: Emergency Provider Emergency Medicine; PCP Family Medicine
DX: M54.12 Radiculopathy, cervical region (principal)
CPT/HCPCS: 99283; 99284; 96372; J1885

== ENCOUNTER 2024-11-03 10:01 | Outpatient (CLI) | payer MEDICAID, SELFPAY ==
--- NOTE | 2024-11-03 13:41 | TELEFU_ITS ---
Date of service: 11/03/24 Time of Service: 12:30 Nutrition Note NOTE: Pedro Pablo referred for nutrition visit to support his goal with weight management. He reports being fit in the [employer]ines and got out in 2017 being in the best shape of his life and reports this was so until 2020 when his father and he reports spiralling for about 2 years with some depression and lack of motivation. He reports now he cannot run like he used to d/t enlarged lung condition, but probably averages at least 3 miles a day of walking with dog. He has tried using [employer] tracking j[employer]ie but found it a little tedious and hasn't experienced any sifgnificant changes. Pedro Pablo shares he had to get 3 our of 4 parathyroid glands removed - takes calcitriol and magnesium, tums for calcium. He shared he does shift his eating to late at night - might not eat much at all until evening 5/6pm and then will be up with continued eating until bed at 3/4am. I shared my thoughts about how I don't think this pattern is going to support his goals. There's a lot of literature that supports front-loading ca lories and emphasizing high protein intake to start the day early and then tapering off energy consumption into the early evening. Suggested he should consider a healthier pattern due to circadian rhythm component of energy balance. reviewed with him a resource for getting his menus planned ahead of time so he eats more proactively and less reactively - the most important behavior in healthy eating. Gave him a range of macros to plug in, including added sugar, fiber and saturated fats - the menus can be modified for increased difficulty chewing crunchy foods due to lack of dentition. he can work with the website to revise menus to this and many other factors such as food budget, types of food etc... Gave creative writing english professor my contact info to reach out should he desire follow up appts or have need for additional resources. Time Spent in Nutritional Counseling and Treatment: 25 min
== END 2024-11-03 10:02 | disposition home or self-care (01) ==
PROVIDERS: PCP Family Medicine; Visit Provider Dietitian, Registered
DX: E66.9 Obesity, unspecified (principal)
CPT/HCPCS: 123; 97802; 00123

== ENCOUNTER 2024-11-03 11:24 | Emergency (ER) | payer OTHER, SELFPAY ==
--- NOTE | 2024-11-03 11:30 | RT.EKG_ITS ---
APPROVED REPORT Exam: Resting ECG Reason for Exam: SOB, RT arm pain, hx of DVT Patient Location: E HR:110 bpm ECG Measurements Heart Rate 110 AXIS IN 170 P 42 QRSd 103 QRS 123 QT 349 T -17 QTc 473 Conclusion Sinus tachycardia...rate> 99 Inferior infarct, age indeterminate...Q>35mS, T neg, II III aVF Borderline ST elevation, lateral leads...ST >0.06mV, I aVL V5 V6
[2024-11-03 11:35] VITALS: BP 130/97; PULSE 102; RESP 20; TEMP 36.8; O2SAT 97
[2024-11-03 12:08] VITALS: BP 130/97; PULSE 102; RESP 20; TEMP 36.8; O2SAT 97
--- NOTE | 2024-11-03 15:41 | ED.GENADUL_ITS ---
Discharge Plan Disposition Patient Disposition: Left Without Being Seen Discharge Details Primary Care Provider: Brendon Vivar ED Provider: Luh Tsai HPI General Date/Time Provider Initiated Documentation: 11/03/24 12:27 . HPI Narrative: This patient was not completely evaluated by me as he needed to leave for doctor's appointment Related Data Home Medications ?Medication ?Instructions ?Recorded ?Confirmed calcium carbonate (Tums) 2,000 mg PO BID 02/02/23 11/03/24 methadone 10 mg/5 mL oral solution 100 mg PO QAM 06/12/23 11/03/24 prochlorperazine maleate 5 mg 5 mg PO TID PRN acute nausea #30 09/06/23 11/03/24 tablet tabs magnesium gluconate 27 mg 13.5 mg (1/2 x 27 mg magnesium 11/21/23 11/03/24 magnesium (500 mg) tablet (500 mg)) PO TID #60 tabs gabapentin 300 mg capsule 300 mg PO BID #180 caps 06/01/24 11/03/24 calcitriol 0.5 mcg capsule 1 mcg (2 x 0.5 mcg) PO .COMPLEX 06/29/24 11/03/24 #270 caps omeprazole 40 mg capsule,delayed 40 mg PO DAILY #90 caps 07/27/24 11/03/24 release cyclobenzaprine 10 mg tablet 10 mg PO TID PRN muscle spasm #30 10/11/24 11/03/24 tabs polyethylene glycol 3350 17 gram 17 g PO BID PRN 10/15/24 11/03/24 oral powder packet cyclobenzaprine 10 mg tablet 10 mg PO TID PRN #20 tabs 10/16/24 11/03/24 clonazepam 1 mg tablet 1 mg PO BID #56 tabs 10/19/24 11/03/24 lorazepam 1 mg tablet 1 mg PO DAILY PRN anxiety #10 tabs 10/19/24 11/03/24 Previous Rx's ?Medication ?Instructions ?Recorded prochlorperazine maleate 5 mg 5 mg PO TID PRN acute nausea #30 09/06/23 tablet tabs magnesium gluconate 27 mg 13.5 mg (1/2 x 27 mg magnesium 11/21/23 magnesium (500 mg) tablet (500 mg)) PO TID #60 tabs gabapentin 300 mg capsule 300 mg PO BID #180 caps 06/01/24 calcitriol 0.5 mcg capsule 1 mcg (2 x 0.5 mcg) PO .COMPLEX 06/29/24 #270 caps omeprazole 40 mg capsule,delayed 40 mg PO DAILY #90 caps 07/27/24 release cyclobenzaprine 10 mg tablet 10 mg PO TID PRN muscle spasm #30 10/11/24 tabs cyclobenzaprine 10 mg tablet 10 mg PO TID PRN #20 tabs 10/16/24 clonazepam 1 mg tablet 1 mg PO BID #56 tabs 10/19/24 lorazepam 1 mg tablet 1 mg PO DAILY PRN anxiety #10 tabs 10/19/24 Allergies Allergy/AdvReac Type Severity Reaction Status Date / Time codeine Allergy Intermediate pass out Verified 11/03/24 11:41 Penicillins Allergy Skin Rash Verified 11/03/24 11:41 marijuana (cannabis) AdvReac Severe Paranoia Verified 11/03/24 11:41 amoxicillin AdvReac Intermediate Nausea Verified 11/03/24 11:41 dextromethorphan (From AdvReac Intermediate got Verified 11/03/24 11:41 NyQuil) really hot and sweaty doxylamine (From NyQuil) AdvReac Intermediate got Verified 11/03/24 11:41 really hot and sweaty pseudoephedrine (From NyQuil) AdvReac Intermediate got Verified 11/03/24 11:41 really hot and sweaty General Stated Complaint: RespSymp ADRIANA: 3 Course Vital Signs Vital signs: Vital Signs Temperature 36.8 C 11/03/24 11:35 Pulse 102 H 11/03/24 11:35 Respiratory Rate 20 11/03/24 11:35 Blood Pressure 130/97 H 11/03/24 11:35 Pulse Oximetry 97 11/03/24 11:35 Temperature 36.8 C 11/03/24 12:08 Temperature Source Oral 11/03/24 12:08 Pulse 102 H 11/03/24 12:08 Respiratory Rate 20 11/03/24 12:08 Respiratory Effort Normal 11/03/24 12:20 Respiratory Depth Normal 11/03/24 12:20 Blood Pressure 130/97 H 11/03/24 12:08 Blood Pressure Position Sitting 11/03/24 12:08 Pulse Oximetry 97 11/03/24 12:08 Oxygen Delivery Method Room Air 11/03/24 12:08 Oxygen Flow Rate 0 11/03/24 12:08 Pain Level 4 11/03/24 12:08 Medical Decision Making Quality:SDOH Health Related Social Needs: Health related social needs problems with daily activi ties (Z73.9) PFSH All Active Problems (Updated 11/02/24 @ 00:03 by HAMMAD WILEY) Cubital tunnel syndrome (Acute) Carpal tunnel syndrome of right wrist (Acute) Fatty liver (Acute) IBS (irritable bowel syndrome) (Chronic) Obesity (Chronic) Migraine with aura (Acute) Testicle lump (Acute) Pes anserine bursitis (Acute) Cervical radiculopathy (Acute) Left-sided Flower's palsy (Acute) Opiate dependence, continuous (Acute) 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 Possible 2' Methadone, Clnzpm (?). Surg eval (+)/No further action. History of electrolyte imbalance (Acute) Neck pain on left side (Acute) with shoulder, upper back pain.. torticollis, radiating into left hip/leg Pulmonary nodule 1 cm or greater in diameter (Chronic) Therapeutic opioid induced constipation (Acute) Sphincter of Oddi dysfunction (Chronic) Abnormal CT scan, kidney (Acute) Intrahepatic bile duct dilation (Acute) Common bile duct dilatation (Chronic) Has been dilated for quite some time, now more-so. Normal LFTs. Known gallstones. Depression (Chronic) Elevated parathyroid hormone (Acute) Family history of coronary arteriosclerosis (Chronic) Father of [place] at 50, mother had [place] at 42 Severe anxiety with panic (Chronic) Medical History Multiple endocrine neoplasia type I CKD (chronic kidney disease) stage 2, GFR 60-89 ml/min GFR 64-65, with Hx FLORESITA and GFR < 45 Primary hyperparathyroidism Complex medical condition Serious electrolyte imbalances, with gynecomastia, possible MEN Dx, CKD and anemia with baseline anxiety and Hx PTSD. Hypocalcemia Anxiety Depression Hyperlipidemia Family history of multiple endocrine neoplasia, type 1 PTSD (post-traumatic stress disorder) Per pt. states no triggers at this time. Surgical History History of laparoscopic cholecystectomy (~11/2023) H/O parathyroidectomy Family History Mother Anxiety Asthma Depression Sister Anxiety Depression Father Cancer lung & stomach Depression Diabetes Hypertension MEN 1 (multiple endocrine neoplasia) Social History Smoking/Tobacco Use Status: Never Smoking risk assessment performed?: Yes Alcohol Intake: current Alcohol Intake frequency: holidays/special occasions only Alcohol type: beer Drug use: Current Sobriety Substance use type: former substance user, crack/cocaine, heroin and painkillers Details: stopped using substances for the past 4 years Adopted: No Caregiver/Support person: No Foster care: No Household members: none Housing: apartment Number of Children: 0 Communication Needs: None Education Level: high school Do you need help understanding health information?: Never 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 [employer] Pets and animals: Yes (Ally) Pets and animals: dog(s) Sexually active: No Do you think of yourself as: straight/heterosexual Current gender identity: male What is your relationship status?: How often do you talk on the phone with friends or family?: twice per week How often do you get together with friends or relatives?: never Do you belong to any clubs or organized social groups?: no Panel score (0-1 are the most socially isolated patients): 0 What type of physical activity do you participate in: walking Duration: 15-30 minutes/day Frequency: 5-6 times per week Maryam/Restoration: Catholic Special maryam needs: No Seatbelt use: always Helmet use: Yes Helmet use: always Drive intox or ride w/intox inventory associate and driver: No Do you feel safe at home: Yes Do you feel safe in your relationship?: Yes
== END 2024-11-03 14:36 | disposition left against medical advice (07) ==
PROVIDERS: Emergency Provider Physician Assistant; PCP Family Medicine
DX: Z53.21 Procedure and treatment not carried out due to patient leaving prior to being seen by health care provider (principal)
CPT/HCPCS: 93005; 93010

== ENCOUNTER 2024-11-04 18:01 | Emergency (ER) | payer OTHER, SELFPAY ==
[2024-11-04] VITALS (26 sets, daily range): BP systolic 117–145; BP diastolic 54–99; PULSE 96–122; RESP 11–40; TEMP 36.9; O2SAT 90–100
--- NOTE | 2024-11-04 18:00 | RT.EKG_ITS ---
APPROVED REPORT Exam: Resting ECG Reason for Exam: chest pain Patient Location: E HR:128 bpm ECG Measurements Heart Rate 128 AXIS AR 149 P 55 QRSd 97 QRS 90 QT 307 T 36 QTc 449 Conclusion Sinus tachycardia, rate 128 No interval abnormalities No STEMI No significant changes from priors
[2024-11-04] MEDS: Aspirin 81 MG CHEW 324 MG CH (18:52)
[2024-11-04 18:56] LABS: Abs Immature Grans 0.04 10^3/uL (0.0-0.06); Absolute Basophil Count 0.04 10^3/uL (0.0-0.2); Absolute Eosinophil Count 0.18 10^3/uL (0.0-0.7); Absolute Lymphocyte Count 2.19 10^3/uL (1.2-3.4); Absolute Monocyte Count 0.82 10^3/uL (0.1-0.8); Absolute Neutrophil Count 6.17 10^3/uL (1.2-6.7); Basophils % 0.4 %; Eosinophils % 1.9 %; HCT 35.5 % (40.0-50.0); HGB 11.2 g/dL (13.5-17.5); Immature Grans % 0.4 %; Lymphocytes % 23.2 %; MCH 26.8 pg (27.0-33.0); MCHC 31.5 % (32.0-36.0); MCV 85 fL (80-95); MPV 9.7 fL (8.0-11.0); Monocytes % 8.7 %; Neutrophils % 65.4 %; Platelet Count 401 10^3/uL (130-400); RBC 4.18 10^6/uL (4.36-5.78); RDW 17.3 % (11.8-14.1); RDW-SD 51.9 fL; WBC 9.44 10^3/uL (4.4-10.8)
[2024-11-04] MEDS: Normal Saline 500 ML IV (18:57)
[2024-11-04] MEDS: ACETAMINOPHEN 1,000 MG/100 ML BTL 400 MG IVPB (18:59)
--- NOTE | 2024-11-04 19:21 | W.ED.GENAD ---
Discharge Plan Disposition Patient Disposition: Home Condition: Stable Discharge Details Clinical Impression: Chest pain of uncertain etiology Primary Care Provider: Brendon Vivar ED Provider: Richy Oakes Home Meds and New Rx's Prescriptions: Continued gabapentin 300 mg capsule 300 mg PO BID Qty: 180 3RF omeprazole 40 mg capsule,delayed release(DR/EC) 40 mg PO DAILY Qty: 90 3RF clonazepam 1 mg tablet 1 mg PO BID Qty: 56 1RF lorazepam 1 mg tablet 1 mg PO DAILY PRN (Reason: anxiety) Qty: 10 0RF Rx Instructions: Use when considering ER visit methadone 10 mg/5 mL solution 100 mg PO QAM calcitriol 0.5 mcg capsule 1 mcg PO .COMPLEX Qty: 270 3RF Rx Instructions: 1 mcg orally t2 tabs qam and 1 tab QHS; cyclobenzaprine 10 mg tablet 10 mg PO TID PRN (Reason: muscle spasm) Qty: 30 3RF calcium carbonate [Tums] 200 mg calcium (500 mg) tablet,chewable 2,000 mg PO BID prochlorperazine maleate 5 mg tablet 5 mg PO TID PRN (Reason: acute nausea) Qty: 30 0RF polyethylene glycol 3350 17 gram powder in packet 17 g PO BID PRN magnesium gluconate 27 mg magnesium (500 mg) tablet 13.5 mg PO TID Qty: 60 3RF cyclobenzaprine 10 mg tablet 10 mg PO TID PRNQty: 20 0RF Discharge Instructions Instructions: Chest Pain, Adult ED Additional Instructions: You were seen in the emergency department for your chest pain on the left side, your cardiac workup is negative, we ruled out a blood clot in your lungs, there is no pneumonia or other abnormality on your chest x-ray, your labs are around their normal baseline, you do have potassium level of 3.5 with normal being 3.4, try to eat some extra potassium rich foods like bananas or leafy greens over the next few days, try to drink more water, your kidney function has been slightly worse than normal lately, the treatment for this is staying well-hydrated. He had some anxiety which can contribute to chest pain as well as musculoskeletal pain, try not apply heat pad to the area and relax, seek a cardiology visit through your outpatient provider, please return for any worsening chest pain especially with sweating, shortness of breath, feelings of fainting. Referrals: Brendon Vivar DO [Primary Care Provider] - Discharge Data Discharge Date/Time-TO BE ENTERED AT DEPARTURE: 11/04/24 21:37 HPI General Date/Time Provider Initiated Documentation: 11/04/24 18:36. HPI Narrative: 29 year-old male presents to ED today by POV/ambulating with a chief complaint of L rib pain, burning in his axillary chest, with some rhythmic pounding with onset over the past day. Quality described as severe short onset pain a few episodes since last night, no radiation to fever, shortness of breath, nausea/vomiting, flank pain, dizziness/syncope. Severity is described as severe and brief in nature. Palliating factors include nothing specific attempted. Provoking factors include nothing specific- was at rest when pain happened, watching TV. Patient not anticoagulated. Related Data Home Medications ?Medication ?Instructions ?Recorded ?Confirmed calcium carbonate (Tums) 2,000 mg PO BID 02/02/23 11/04/24 methadone 10 mg/5 mL oral solution 100 mg PO QAM 06/12/23 11/04/24 prochlorperazine maleate 5 mg 5 mg PO TID PRN acute nausea #30 09/06/23 11/04/24 tablet tabs magnesium gluconate 27 mg 13.5 mg (1/2 x 27 mg magnesium 11/21/23 11/04/24 magnesium (500 mg) tablet (500 mg)) PO TID #60 tabs gabapentin 300 mg capsule 300 mg PO BID #180 caps 06/01/24 11/04/24 calcitriol 0.5 mcg capsule 1 mcg (2 x 0.5 mcg) PO .COMPLEX 06/29/24 11/04/24 #270 caps omeprazole 40 mg capsule,delayed 40 mg PO DAILY #90 caps 07/27/24 11/04/24 release cyclobenzaprine 10 mg tablet 10 mg PO TID PRN muscle spasm #30 10/11/24 11/04/24 tabs polyethylene glycol 3350 17 gram 17 g PO BID PRN 10/15/24 11/04/24 oral powder packet cyclobenzaprine 10 mg tablet 10 mg PO TID PRN #20 tabs 10/16/24 11/04/24 clonazepam 1 mg tablet 1 mg PO BID #56 tabs 10/19/24 11/04/24 lorazepam 1 mg tablet 1 mg PO DAILY PRN anxiety #10 tabs 10/19/24 11/04/24 Previous Rx's ?Medication ?Instructions ?Recorded prochlorperazine maleate 5 mg 5 mg PO TID PRN acute nausea #30 09/06/23 tablet tabs magnesium gluconate 27 mg 13.5 mg (1/2 x 27 mg magnesium 11/21/23 magnesium (500 mg) tablet (500 mg)) PO TID #60 tabs gabapentin 300 mg capsule 300 mg PO BID #180 caps 06/01/24 calcitriol 0.5 mcg capsule 1 mcg (2 x 0.5 mcg) PO .COMPLEX 06/29/24 #270 caps omeprazole 40 mg capsule,delayed 40 mg PO DAILY #90 caps 07/27/24 release cyclobenzaprine 10 mg tablet 10 mg PO TID PRN muscle spasm #30 10/11/24 tabs cyclobenzaprine 10 mg tablet 10 mg PO TID PRN #20 tabs 10/16/24 clonazepam 1 mg tablet 1 mg PO BID #56 tabs 10/19/24 lorazepam 1 mg tablet 1 mg PO DAILY PRN anxiety #10 tabs 10/19/24 Allergies Allergy/AdvReac Type Severity Reaction Status Date / Time codeine Allergy Intermediate pass out Verified 11/04/24 18:03 Penicillins Allergy Skin Rash Verified 11/04/24 18:03 marijuana (cannabis) AdvReac Severe Paranoia Verified 11/04/24 18:03 amoxicillin AdvReac Intermediate Nausea Verified 11/04/24 18:03 dextromethorphan (From AdvReac Intermediate got Verified 11/04/24 18:03 NyQuil) really hot and sweaty doxylamine (From NyQuil) AdvReac Intermediate got Verified 11/04/24 18:03 really hot and sweaty pseudoephedrine (From NyQuil) AdvReac Intermediate got Verified 11/04/24 18:03 really hot and sweaty General Stated Complaint: Chest/Rib ADRIANA: 3 Review of Systems All systems reviewed & are unremarkable except as noted in HPI and below Exam Narrative Exam Narrative: GENERAL APPEARANCE: Well-nourished, non-toxic, awake and alert, atraumatic, no acute distress. SKIN: Warm, pink, dry, intact, without rashes/lesions/ulcerations. HEAD: Normocephalic, atraumatic, normal hair distribution for gender/age. EYES: Normal conjunctiva, no exudates on lids/lashes. ENT: Nares patent, no circumoral cyanosis, no facial swelling NECK: Supple, trachea midline, painless cervical ROM. LUNGS/CHEST: Lungs CTA bilaterally-no rhonchi/rales/wheezes, no focally diminished or absent lung sounds, non-labored respirations, normal A/P diameter, symmetrical expansion, no chest wall deformity, left lower rib tenderness, no crepitus HEART (CV/PV): Regular rate and rhythm without murmur, no peripheral edema, no JVD. ABDOMEN: Soft, non-distended, no guarding, no focal severe abdominal tenderness, no rebound tenderness, no Rovsing's, negative Cedillo's. MSK: Normal ROM, no swelling/deformity to bilateral UEs or LEs, moving all extremities without weakness, no cyanosis, spine midline without tenderness, normal curvature. NEURO: Mental Status AAOx4 - alert to person, place, time, events No facial droop, no forehead involvement. Motor: No focal weakness - strength 5/5 in bilateral UEs and LEs, proximal and distal, symmetric. Sensory: sensation intact to light touch globally. Gait normal: patient ambulated without ataxia into ED room. PSYCH: euthymic, cooperative, pleasant, appropriate speech Course Vital Signs Vital signs: Vital Signs Temperature 36.9 C 11/04/24 18:05 Pulse 122 H 11/04/24 18:05 Respiratory Rate 20 11/04/24 18:05 Blood Pressure 129/75 11/04/24 18:05 Pulse Oximetry 96 11/04/24 18:05 Temperature 36.9 C 11/04/24 18:05 Temperature Source Oral 11/04/24 18:05 Pulse 122 H 11/04/24 18:05 Respiratory Rate 20 11/04/24 18:05 Respiratory Effort Normal 11/04/24 18:14 Respiratory Depth Normal 11/04/24 18:14 Respiratory Pattern Normal 11/04/24 18:14 Blood Pressure 129/75 11/04/24 18:05 Blood Pressure Position Sitting 11/04/24 18:05 Pulse Oximetry 96 11/04/24 18:05 Oxygen Delivery Method Room Air 11/04/24 18:05 Oxygen Flow Rate 0 11/04/24 18:05 Pain Level 6 05/22/25 18:05 Lab/Test Results Lab/Test Results: Laboratory Tests Range/Units 11/04/24 18:50 WBC (4.4-10.8) 10^3/uL 9.44 RBC (4.36-5.78) 10^6/uL 4.18 L Hgb (13.5-17.5) g/dL 11.2 L Hct (40.0-50.0) % 35.5 L MCV (80-95) fL 85 MCH (27.0-33.0) pg 26.8 L MCHC (32.0-36.0) % 31.5 L RDW (11.8-14.1) % 17.3 H Plt Count (130-400) 10^3/uL 401 H MPV (8.0-11.0) fL 9.7 Immature Gran % % 0.4 Neutrophils % % 65.4 Lymphocytes % % 23.2 Monocytes % % 8.7 Eosinophils % % 1.9 Basophils % % 0.4 Nucleated RBC % (0.0-0.3) % 0.0 Absolute Neutrophils (1.2-6.7) 10^3/uL 6.17 Absolute Lymphocytes (1.2-3.4) 10^3/uL 2.19 Absolute Monocytes (0.1-0.8) 10^3/uL 0.82 H Absolute Eosinophils (0.0-0.7) 10^3/uL 0.18 Absolute Basophils (0.0-0.2) 10^3/uL 0.04 Medical Decision Making This dictation utilizes [id number] dictation software and may contain unedited grammatical errors. 29 year-old male presents to ED today by POV/ambulating with a chief complaint of L rib pain, burning in his axillary chest, with some rhythmic pounding with onset over the past day. Quality described as severe short onset pain a few episodes since last night, no radiation to fever, shortness of breath, nausea/vomiting, flank pain, dizziness/syncope. Severity is described as severe and brief in nature. Palliating factors include nothing specific attempted. Provoking factors include nothing specific- was at rest when pain happened, watching TV. Patients' medical history: Complex medical history of parathyroidism with parathyroidectomy, sphincter of Oddi dysfunction, CKD, hyperlipidemia, PTSD, anxiety. Family and social history: Noncontributory, denies illicit substance use or EtOH intake, eating normal diet. Pertinent exam findings / vital signs include left lower rib midclavicular to mid axillary mild tenderness without crepitus, benign cardiopulmonary exam, nonperitoneal abdomen with no focal severe tenderness, no CVA tenderness to percussion bilaterally, nontoxic vitals. Differential / pathologies of concern include ACS, PE, costochondritis, PNA, anxiety. Diagnostic studies of: - CBC, CMP, D-dimer, magnesium, serial troponins, BNP, lipase, TSH, XR chest, EKG. - CBC shows no leukocytosis, baseline anemia - D-dimer negative, Wells score low for PE - CMP shows mild worsening of the patient's CKD with creatinine of 2.2 and mild elevation of BUN likely mild dehydration, mildly low potassium stressed potassium high diet - Magnesium within normal limits - Serial troponins negative - Lipase negative - TSH within normal limits - BNP shows no acute elevation - X-ray chest shows no acute abnormality - EKG shows sinus tachycardia 128 bpm, P waves followed by narrow complex QRS with normal axis, good R wave progression, no ST depressions or reciprocal elevations, no heart block, normal intervals, heart rate improved to 98 on monitor at time of discharge- patient is often mildly tachycardic on arrival, possibly from ambulation Interventions of: -324 mg chewable aspirin, 1 g IV Tylenol, 500 mL IVF NS. ED Course/Assessment/Plan: 29-year-old male presents to the emergency department with brief sharp rhythmic chest pains and rib pain on the left side onset last night while watching TV and return today, cardiac workup negative, D-dimer negative do not suspect PE with a low Wells score, has no major electrolyte abnormalities beyond his chronic issues with electrolytes, stressed high potassium diet for the next few days for mild hypokalemia barely below normal at 3.4, serial troponins are negative indicating no ACS, BNP is negative no CHF, x-ray shows no acute abnormality, no pulmonary edema, no pneumothorax. I counseled on possible costochondritis and recommend he and ice to the area and regular doses of Tylenol, strict return criteria for failure to improve especially with any worsening especially with dizziness, shortness of breath or syncope or other emergent concerns. Findings not consistent with pneumonia, pneumothorax, ACS, PE, rib fracture, pneumonia. Disposition of Chest Pain of Uncertain Etiology. Patient verbalized understanding of the plan and return to ED criteria and engaged in shared decision making. Medical Records Medical records reviewed: Yes I reviewed the patient's medical records. Imaging Data Radiologic Study: Attestation: I personally reviewed and interpreted this imaging study as follows: Imaging: X-Ray Radiologist's impression: Exam: XR Chest Exam date and time: 11/04/2024 9:02 PM Age: 29 years old Clinical indication: Pain; Left-sided TECHNIQUE: Imaging protocol: Radiologic exam of the chest. Views: 2 views. COMPARISON: CR XR CHEST 2V PA LATERAL 10/16/2024 12:22 AM FINDINGS: Lungs: The lungs are clear. No consolidative radiopacities. Pleural spaces: No pleural effusion. No pneumothorax. Heart/Mediastinum: The heart is normal size. Bones/joints: Unremarkable. IMPRESSION: No acute cardiopulmonary findings. Dictated and Authenticated by: Seema Manrique MD. Lab Data Lab results reviewed: Yes I reviewed the patient's lab results. Labs: Laboratory Tests Range/Units 11/04/24 11/04/24 18:50 19:47 WBC (4.4-10.8) 10^3/uL 9.44 RBC (4.36-5.78) 10^6/uL 4.18 L Hgb (13.5-17.5) g/dL 11.2 L Hct (40.0-50.0) % 35.5 L MCV (80-95) fL 85 MCH (27.0-33.0) pg 26.8 L MCHC (32.0-36.0) % 31.5 L RDW (11.8-14.1) % 17.3 H Plt Count (130-400) 10^3/uL 401 H MPV (8.0-11.0) fL 9.7 Immature Gran % % 0.4 Neutrophils % % 65.4 Lymphocytes % % 23.2 Monocytes % % 8.7 Eosinophils % % 1.9 Basophils % % 0.4 Nucleated RBC % (0.0-0.3) % 0.0 Absolute Neutrophils (1.2-6.7) 10^3/uL 6.17 Absolute Lymphocytes (1.2-3.4) 10^3/uL 2.19 Absolute Monocytes (0.1-0.8) 10^3/uL 0.82 H Absolute Eosinophils (0.0-0.7) 10^3/uL 0.18 Absolute Basophils (0.0-0.2) 10^3/uL 0.04 D-Dimer (<500) ng/mlFEU 310 Sodium (136-145) mmol/L 139 Potassium (3.5-5.1) mmol/L 3.4 L Chloride (98-107) mmol/L 100 Carbon Dioxide (21.0-32.0) mmol/L 36.8 H Anion Gap (3-11) mmol/L 2.2 L BUN (7-18) mg/dL 20 H Creatinine (0.70-1.30) mg/dL 2.1 H Est GFR (CKD-EPI 2020) (mL/min/1.73m2) 42.36 Glucose (74-106) mg/dL 114 H Calcium (8.5-10.1) mg/dL 11.1 H Magnesium (1.8-2.4) mg/dL 1.9 Total Bilirubin (0.2-1.0) mg/dL 0.4 AST (15-37) U/L 30 ALT (16-63) U/L 47 Alkaline Phosphatase (46-116) U/L 178 H Troponin I (<or=76) ng/L 4 8 NT-Pro-B Natriuret Pep (<300) pg/mL 23 Total Protein (6.4-8.2) g/dL 8.4 H Albumin (3.4-5.0) g/dL 3.3 L Lipase (<78) U/L 24 TSH (0.36-3.74) uIU/mL 2.54 Quality:SDOH Health Related Social Needs: Health related social needs problems with daily activities (Z73.9) PFSH All Active Problems (Updated 11/04/24 @ 21:26 by ANDREW Coleman) Chest pain of uncertain etiology (Acute) Cubital tunnel syndrome (Acute) Carpal tunnel syndrome of right wrist (Acute) Fatty liver (Acute) IBS (irritable bowel syndrome) (Chronic) Obesity (Chronic) Migraine with aura (Acute) Testicle lump (Acute) Pes anserine bursitis (Acute) Cervical radiculopathy (Acute) Left-sided Flower's palsy (Acute) Opiate dependence, continuous (Acute) 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 Possible 2' Methadone, Clnzpm (?). Surg eval (+)/No further action. History of electrolyte imbalance (Acute) Neck pain on left side (Acute) with shoulder, upper back pain.. torticollis, radiating into left hip/leg Pulmonary nodule 1 cm or greater in diameter (Chronic) Therapeutic opioid induced constipation (Acute) Sphincter of Oddi dysfunction (Chronic) Abnormal CT scan, kidney (Acute) Intrahepatic bile duct dilation (Acute) Common bile duct dilatation (Chronic) Has been dilated for quite some time, now more-so. Normal LFTs. Known gallstones. Depression (Chronic) Elevated parathyroid hormone (Acute) Family history of coronary arteriosclerosis (Chronic) Father of [place] at 50, mother had [place] at 42 Severe anxiety with panic (Chronic) Medical History Multiple endocrine neoplasia type I CKD (chronic kidney disease) stage 2, GFR 60-89 ml/min GFR 64-65, with Hx FLORESITA and GFR < 45 Primary hyperparathyroidism Complex medical condition Serious electrolyte imbalances, with gynecomastia, possible MEN Dx, CKD and anemia with baseline anxiety and Hx PTSD. Hypocalcemia Anxiety Depression Hyperlipidemia Family history of multiple endocrine neoplasia, type 1 PTSD (post-traumatic stress disorder) Per pt. states no triggers at this time. Surgical History History of laparoscopic cholecystectomy (~11/2023) H/O parathyroidectomy Family History Mother Anxiety Asthma Depression Sister Anxiety Depression Father Cancer lung & stomach Depression Diabetes Hypertension MEN 1 (multiple endocrine neoplasia) Social History Smoking/Tobacco Use Status: Never Smoking risk assessment performed?: Yes Alcohol Intake: current Alcohol Intake frequency: holidays/special occasions only Alcohol type: beer Drug use: Current Sobriety Substance use type: former substance user, crack/cocaine, heroin and painkillers Details: stopped using substances for the past 4 years Adopted: No Caregiver/Support person: No Foster care: No Household members: none Housing: apartment Number of Children: 0 Communication Needs: None Education Level: high school Do you need help understanding health information?: Never current occupation: [employer] Pets and animals: Yes (Ally) Pets and animals: dog(s) Sexually active: No Do you think of yourself as: straight/heterosexual Current gender identity: male What is your relationship status?: How often do you talk on the phone with friends or family?: twice per week How often do you get together with friends or relatives?: never Do you belong to any clubs or organized social groups?: no Panel score (0-1 are the most socially isolated patients): 0 What type of physical activity do you participate in: walking Duration: 15-30 minutes/day Frequency: 5-6 times per week Maryam/Moravian: Gnosticism Special maryam needs: No Seatbelt use: always Helmet use: Yes Helmet use: always Drive intox or ride w/intox company driver: No Do you feel safe at home: Yes Do you feel safe in your relationship?: Yes
[2024-11-04 19:23] LABS: ALT 47 U/L (16-63); AST 30 U/L (15-37); Albumin 3.3 g/dL (3.4-5.0); Alkaline Phosphatase 178 U/L (46-116); Anion Gap 2.2 mmol/L (3-11); BUN 20 mg/dL (7-18); Bilirubin, Total 0.4 mg/dL (0.2-1.0); CO2 36.8 mmol/L (21.0-32.0); CREATININE 2.1 mg/dL (0.70-1.30); Calcium 11.1 mg/dL (8.5-10.1); Chloride 100 mmol/L (98-107); Estimated GFR 42.36 (mL/min/1.73m2); Glucose 114 mg/dL (74-106); Lipase 24 U/L (<78); Magnesium 1.9 mg/dL (1.8-2.4); NT-proBNP 23 pg/mL (<300); Potassium 3.4 mmol/L (3.5-5.1); Sodium 139 mmol/L (136-145); TSH (W/Ref FT4) 2.54 uIU/mL (0.36-3.74); Total Protein 8.4 g/dL (6.4-8.2); Troponin I 4 ng/L (<or=76)
[2024-11-04 19:25] LABS: D-Dimer 310 ng/mlFEU (<500)
[2024-11-04 20:12] LABS: Troponin I 8 ng/L (<or=76)
--- NOTE | 2024-11-04 20:30 | DI.RAD_ITS ---
Exam(s) XR CHEST 2V PA LATERAL EXAM: XR CHEST 2V PA LATERAL CLINICAL HISTORY: chest pain TECHNIQUE: 2D digital imaging was performed. Two views. COMPARISON: CR,XR XR CHEST 2V PA LATERAL from 10/16/2024 FINDINGS: HEART: Normal size. Aorta: Not dilated. PULMONARY VASCULATURE: Normal. MEDIASTINUM: Unremarkable. LUNGS: Clear. PLEURAL SPACE: No pleural effusion or pneumothorax. BONE:Unremarkable for age. SOFT TISSUES: Unremarkable. IMPRESSION: No acute abnormality. DATA REPOSITORY: RADIATION DOSE DELIVERED:
--- NOTE | 2024-11-04 21:24 | DI.VRAD_ITS ---
PROCEDURE INFORMATION: Exam: XR Chest Exam date and time: 11/04/2024 9:02 PM Age: 29 years old Clinical indication: Pain; Left-sided TECHNIQUE: Imaging protocol: Radiologic exam of the chest. Views: 2 views. COMPARISON: CR XR CHEST 2V PA LATERAL 10/16/2024 12:22 AM FINDINGS: Lungs: The lungs are clear. No consolidative radiopacities. Pleural spaces: No pleural effusion. No pneumothorax. Heart/Mediastinum: The heart is normal size. Bones/joints: Unremarkable. IMPRESSION: No acute cardiopulmonary findings. Dictated and Authenticated by: Seema Manrique MD. Orderin Champ Lockhart MD
== END 2024-11-04 21:37 | disposition home or self-care (01) ==
PROVIDERS: Emergency Provider Physician Assistant; PCP Family Medicine
DX: R07.89 Other chest pain (principal); R00.0 Tachycardia, unspecified; E78.5 Hyperlipidemia, unspecified; E89.2 Postprocedural hypoparathyroidism; N18.2 Chronic kidney disease, stage 2 (mild)
CPT/HCPCS: 36415; 80053; 83690; 93005; 96361; 96365; 99285; 71046; 83735; 83880; 84443; 84484; 85025; 85379; 93010; J0131

== ENCOUNTER 2024-11-18 13:52 | Emergency (ER) | payer OTHER, SELFPAY ==
[2024-11-18 13:55] VITALS: BP 118/82; PULSE 121; RESP 16; TEMP 36.4; O2SAT 98
--- NOTE | 2024-11-18 14:00 | W.ED.GENAD ---
Discharge Plan Disposition Patient Disposition: Home Discharge Details Clinical Impression: Inversion sprain of left ankle Primary Care Provider: Brendon Vivar ED Provider: Pedro Wolfe Home Meds and New Rx's Prescriptions: Continued gabapentin 300 mg capsule 300 mg PO BID Qty: 180 3RF omeprazole 40 mg capsule,delayed release(DR/EC) 40 mg PO DAILY Qty: 90 3RF lorazepam 1 mg tablet 1 mg PO DAILY PRN (Reason: anxiety) Qty: 10 0RF Rx Instructions: Use when considering ER visit clonazepam 1 mg tablet 1 mg PO BID Qty: 56 2RF cyclobenzaprine 10 mg tablet 10 mg PO TID PRN (Reason: muscle spasm) Qty: 30 3RF methadone 10 mg/5 mL solution 100 mg PO QAM calcitriol 0.5 mcg capsule 1 mcg PO .COMPLEX Qty: 270 3RF Rx Instructions: 1 mcg orally t2 tabs qam and 1 tab QHS; calcium carbonate [Tums] 200 mg calcium (500 mg) tablet,chewable 2,000 mg PO BID prochlorperazine maleate 5 mg tablet 5 mg PO TID PRN (Reason: acute nausea) Qty: 30 0RF polyethylene glycol 3350 17 gram powder in packet 17 g PO BID PRN magnesium gluconate 27 mg magnesium (500 mg) tablet 13.5 mg PO TID Qty: 60 3RF Discharge Instructions Instructions: Ankle Sprain ED Additional Instructions: You are seen in the emergency department for your left ankle pain. Your x-ray showed no sign of any fractures. As we discussed please rest and elevate your left lower extremity today. Please ice for 20 minutes on followed by 20 minutes off. Your pain should steadily get better over the next several days. If your pain worsens or if you cannot move your foot please return to the emergency department. You may bear weight as tolerated using these crutches. Please wear this ankle brace to prevent further injury. For your pain please take medications as follows: 1. Take acetaminophen (Tylenol), 1,000 mg (two 500 mg tabs) every 6 hours [2. Take ibuprofen (Advil), 400 mg every 6 hours.] HPI General Date/Time Provider Initiated Documentation: 11/18/24 14:00. HPI Narrative: MDM This is an overall very well-appearing normothermic but tachycardic 29-year-old male with left ankle swelling concerning for the possibility of fracture versus sprain for which patient will undergo x-rays. No pain out of proportion to suggest necrotizing soft tissue infection. No fevers nor erythema to suggest septic joint so no indication for arthrocentesis nor broad-spectrum antibiotics. No erythema to suggest cellulitis. No fluctuance to suggest abscess. No proximal tibial tenderness to suggest Maisonneuve injury. No pulse deficits to suggest aortic dissection nor ruptured AAA so no indication for CT angiogram with runoffs as I am not suspicious for critical limb ischemia. No midfoot instability to suggest Lisfranc injury. No lateral foot tenderness to suggest Fields fracture. No history of axial loading nor talar tenderness to suggest talar fracture. No calcaneal tenderness to suggest calcaneal fracture. I suspect the tingling in his toes is secondary to swelling causing transient neuropraxia. Patient is icing. Will treat with acetaminophen and ibuprofen. Patient has a long history of tachycardia across many ED visits. Tachycardia slightly more pronounced today which may be secondary to pain. 3 PM X-ray read as unremarkable. I advised patient that he should rest his left lower extremity and that he may be weightbearing as tolerated. He should ice for 20 minutes on 20 minutes off throughout the day today. He should return to the emergency department if he loses sensation in his foot or if his foot turns blue. Otherwise he should follow-up with his PCP as needed. He understood his return indications and was discharged with an empiric trial of expectant outpatient management. Of note patient's heart rate was persistently elevated at time of discharge. This is not inconsistent with prior ED visits and may have been exacerbated by pain. I considered sepsis however the patient lacks infectious symptoms and is normotensive and normothermic so I felt that the risks of broad-spectrum antibiotics and blood cultures outweigh the benefits. HPI This is a 29-year-old male with a history of elevated BMI arrived to the emergency department via private vehicle in the setting of left ankle pain. Patient reports that approximately 1-1/2 hours ago he inadvertently inverted his left ankle when missing a curb. He says that he remotely injured this ankle during childhood but has not had any surgeries. He is not anticoagulated. He did not strike his head when he tripped. He did not fall. He has been ambulatory since his injury. He has had some tingling in his toes. Exam General: Well-appearing in no acute distress speaking in complete sentences. Head: Normocephalic, atraumatic. Eye: Extraocular eye movements intact. No conjunctival injection. No scleral icterus. Ear, nose, mouth, throat: Grossly normal inspection. Normal voice, handling secretions normally. Neck: Trachea midline. Cardiovascular: Well-perfused distal extremities. Respiratory: Nonlabored respiration. Gastrointestinal: Nondistended abdomen. Musculoskeletal: Left ankle with no obvious deformities. Mild left-sided lateral malleoli are tenderness and swelling. No ecchymoses. No lacerations. Entire foot is nontender. Cap refill less than 2 seconds in the toes. Intact PT and DP pulses. No proximal tibial tenderness. Patient can dorsi and plantarflex left foot at 3 out of 5 strength limited secondarily by pain. Skin: Normal for age and race, grossly normal temperature and turgor. No acute rash. Neurologic: Alert and appropriate, no apparent acute deficits. GCS 15. Related Data Home Medications ?Medication ?Instructions ?Recorded ?Confirmed calcium carbonate (Tums) 2,000 mg PO BID 02/02/23 11/18/24 methadone 10 mg/5 mL oral solution 100 mg PO QAM 06/12/23 11/18/24 prochlorperazine maleate 5 mg 5 mg PO TID PRN acute nausea #30 09/06/23 11/18/24 tablet tabs magnesium gluconate 27 mg 13.5 mg (1/2 x 27 mg magnesium 11/21/23 11/18/24 magnesium (500 mg) tablet (500 mg)) PO TID #60 tabs gabapentin 300 mg capsule 300 mg PO BID #180 caps 06/01/24 11/18/24 calcitriol 0.5 mcg capsule 1 mcg (2 x 0.5 mcg) PO .COMPLEX 06/29/24 11/18/24 #270 caps omeprazole 40 mg capsule,delayed 40 mg PO DAILY #90 caps 07/27/24 11/18/24 release polyethylene glycol 3350 17 gram 17 g PO BID PRN 10/15/24 11/18/24 oral powder packet lorazepam 1 mg tablet 1 mg PO DAILY PRN anxiety #10 tabs 10/19/24 11/18/24 clonazepam 1 mg tablet 1 mg PO BID #56 tabs 11/16/24 11/18/24 cyclobenzaprine 10 mg tablet 10 mg PO TID PRN muscle spasm #30 11/16/24 11/18/24 tabs Previous Rx's ?Medication ?Instructions ?Recorded prochlorperazine maleate 5 mg 5 mg PO TID PRN acute nausea #30 09/06/23 tablet tabs magnesium gluconate 27 mg 13.5 mg (1/2 x 27 mg magnesium 11/21/23 magnesium (500 mg) tablet (500 mg)) PO TID #60 tabs gabapentin 300 mg capsule 300 mg PO BID #180 caps 06/01/24 calcitriol 0.5 mcg capsule 1 mcg (2 x 0.5 mcg) PO .COMPLEX 06/29/24 #270 caps omeprazole 40 mg capsule,delayed 40 mg PO DAILY #90 caps 07/27/24 release lorazepam 1 mg tablet 1 mg PO DAILY PRN anxiety #10 tabs 10/19/24 clonazepam 1 mg tablet 1 mg PO BID #56 tabs 11/16/24 cyclobenzaprine 10 mg tablet 10 mg PO TID PRN muscle spasm #30 11/16/24 tabs Allergies Allergy/AdvReac Type Severity Reaction Status Date / Time codeine Allergy Intermediate pass out Verified 11/18/24 13:54 Penicillins Allergy Skin Rash Verified 11/18/24 13:54 marijuana (cannabis) AdvReac Severe Paranoia Verified 11/18/24 13:54 amoxicillin AdvReac Intermediate Nausea Verified 11/18/24 13:54 dextromethorphan (From AdvReac Intermediate got Verified 11/18/24 13:54 NyQuil) really hot and sweaty doxylamine (From NyQuil) AdvReac Intermediate got Verified 11/18/24 13:54 really hot and sweaty pseudoephedrine (From NyQuil) AdvReac Intermediate got Verified 11/18/24 13:54 really hot and sweaty General Stated Complaint: Orthopedic ADRIANA: 4 Course Vital Signs Vital signs: Vital Signs Temperature 36.4 C 11/18/24 13:55 Pulse 121 H 11/18/24 13:55 Respiratory Rate 16 11/18/24 13:55 Blood Pressure 118/82 11/18/24 13:55 Pulse Oximetry 98 11/18/24 13:55 Temperature 36.4 C 11/18/24 13:55 Temperature Source Oral 11/18/24 13:55 Pulse 121 H 11/18/24 13:55 Respiratory Rate 16 11/18/24 13:55 Blood Pressure 118/82 11/18/24 13:55 Blood Pressure Position Sitting 11/18/24 13:55 Pulse Oximetry 98 11/18/24 13:55 Oxygen Delivery Method Room Air 11/18/24 13:55 Oxygen Flow Rate 0 11/18/24 13:55 Pain Level 8 11/18/24 13:55 Medical Decision Making Quality:SDOH Health Related Social Needs: Health related social needs problems with daily activities (Z73.9) PFSH All Active Problems (Updated 11/18/24 @ 14:19 by Pedro Wolfe MD) Inversion sprain of left ankle (Acute) Obstructive sleep apnea (Chronic) Metabolic dysfunction-associated fatty liver disease (MAFLD) (Acute) Chest pain of uncertain etiology (Acute) Cubital tunnel syndrome (Acute) Carpal tunnel syndrome of right wrist (Acute) Fatty liver (Acute) IBS (irritable bowel syndrome) (Chronic) Obesity (Chronic) Migraine with aura (Acute) Testicle lump (Acute) Pes anserine bursitis (Acute) Cervical radiculopathy (Acute) Left-sided Flower's palsy (Acute) Opiate dependence, continuous (Acute) 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 Possible 2' Methadone, Clnzpm (?). Surg eval (+)/No further action. History of electrolyte imbalance (Acute) Neck pain on left side (Acute) with shoulder, upper back pain.. torticollis, radiating into left hip/leg Pulmonary nodule 1 cm or greater in diameter (Chronic) Therapeutic opioid induced constipation (Acute) Sphincter of Oddi dysfunction (Chronic) Abnormal CT scan, kidney (Acute) Intrahepatic bile duct dilation (Acute) Common bile duct dilatation (Chronic) Has been dilated for quite some time, now more-so. Normal LFTs. Known gallstones. Depression (Chronic) Elevated parathyroid hormone (Acute) Family history of coronary arteriosclerosis (Chronic) Father of DE at 50, mother had DE at 42 Severe anxiety with panic (Chronic) Medical History Multiple endocrine neoplasia type I CKD (chronic kidney disease) stage 2, GFR 60-89 ml/min GFR 64-65, with Hx FLORESITA and GFR < 45 Primary hyperparathyroidism Complex medical condition Serious electrolyte imbalances, with gynecomastia, possible MEN Dx, CKD and anemia with baseline anxiety and Hx PTSD. Hypocalcemia Anxiety Depression Hyperlipidemia Family history of multiple endocrine neoplasia, type 1 PTSD (post-traumatic stress disorder) Per pt. states no triggers at this time. Surgical History History of laparoscopic cholecystectomy (~11/2023) H/O parathyroidectomy Family History Mother Anxiety Asthma Depression Sister Anxiety Depression Father Cancer lung & stomach Depression Diabetes Hypertension MEN 1 (multiple endocrine neoplasia) Social History Smoking/Tobacco Use Status: Never Smoking risk assessment performed?: Yes Alcohol Intake: current Alcohol Intake frequency: holidays/special occasions only Alcohol type: beer Drug use: Current Sobriety Substance use type: former substance user, crack/cocaine, heroin and painkillers Details: stopped using substances for the past 4 years Adopted: No Caregiver/Support person: No Foster care: No Household members: none Housing: apartment Number of Children: 0 Communication Needs: None Education Level: high school Do you need help understanding health information?: Never current occupation: [employer] Pets and animals: Yes (Ally) Pets and animals: dog(s) Sexually active: No Do you think of yourself as: straight/heterosexual Current gender identity: male What is your relationship status?: How often do you talk on the phone with friends or family?: twice per week How often do you get together with friends or relatives?: never Do you belong to any clubs or organized social groups?: no Panel score (0-1 are the most socially isolated patients): 0 What type of physical activity do you participate in: walking Duration: 15-30 minutes/day Frequency: 5-6 times per week Maryam/Christian: Yazidi Special maryam needs: No Seatbelt use: always Helmet use: Yes Helmet use: always 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
[2024-11-18] MEDS: Acetaminophen 500 MG TAB 1000 MG PO (14:16)
[2024-11-18] MEDS: Ibuprofen 600 MG TAB PO (14:16)
--- NOTE | 2024-11-18 14:37 | DI.RAD_ITS ---
Exam(s) XR ANKLE LT COMPLETE EXAM: XR ANKLE LT COMPLETE CLINICAL HISTORY: Tripped off a curb TECHNIQUE: 2D digital imaging was performed of the left ankle. Three images were obtained. AP, lat eral and oblique views were obtained. COMPARISON: No exams were available for comparison FINDINGS: BONES: No acute fracture is present. No bony destructive lesion is seen. JOINTS:The ankle mortise is normally aligned. SOFT TISSUE: There is soft tissue swelling around the ankle. IMPRESSION: No acute fracture or dislocation. DATA REPOSITORY: RADIATION DOSE DELIVERED:
[2024-11-18 14:54] VITALS: BP 128/77; PULSE 122; RESP 20; O2SAT 95
== END 2024-11-18 15:04 | disposition home or self-care (01) ==
LOC: ER 14:19
PROVIDERS: Emergency Provider Emergency Medicine; PCP Family Medicine
DX: S93.402A Sprain of unspecified ligament of left ankle, initial encounter (principal); N18.2 Chronic kidney disease, stage 2 (mild); E89.2 Postprocedural hypoparathyroidism; X50.1XXA Overexertion from prolonged static or awkward postures, initial encounter; Y93.01 Activity, walking, marching and hiking; Y92.480 Sidewalk as the place of occurrence of the external cause
CPT/HCPCS: 99283; 73610

== ENCOUNTER 2024-11-19 20:54 | Emergency (ER) | payer OTHER, SELFPAY ==
[2024-11-19] VITALS (10 sets, daily range): BP systolic 121–136; BP diastolic 61–84; PULSE 97–121; RESP 14–26; TEMP 37.3; O2SAT 90–98
--- NOTE | 2024-11-19 21:00 | RT.EKG_ITS ---
APPROVED REPORT Exam: Resting ECG Reason for Exam: SOB Patient Location: E HR:105 bpm ECG Measurements Heart Rate [address] 177 P 41 QRSd 95 QRS 19 QT 340 T 37 QTc 450 Conclusion Sinus tachycardia. 105 normal axis no stemi
--- NOTE | 2024-11-19 21:41 | DI.RAD_ITS ---
Exam(s) XR CHEST 2V PA LATERAL EXAM: XR CHEST 2V PA LATERAL CLINICAL HISTORY: sob TECHNIQUE: 2D digital imaging was performed of the chest. Two images were obtained. PA and lateral views were obtained. COMPARISON: CR,XR XR CHEST 2V PA LATERAL from 11/04/2024 FINDINGS: MEDIASTINUM: Normal. HEART: Normal. PULMONARY VASCULATURE: Normal. LUNGS: Clear. PLEURAL SPACE: No pleural effusion or pneumothorax. BONE:Within normal limits for the patient's age. OTHER FINDINGS:Normal. IMPRESSION: 1. No acute pulmonary findings. 2. The preliminary [facility] report was reviewed. DATA REPOSITORY: RADIATION DOSE DELIVERED:
--- NOTE | 2024-11-19 22:10 | W.ED.GENAD ---
Discharge Plan Disposition Patient Disposition: Home Condition: Stable Discharge Details Clinical Impression: SOB (shortness of breath), Anxiety about health Primary Care Provider: Brendon Vivar ED Provider: Jeovany Elias Home Meds and New Rx's Prescriptions: No Action gabapentin 300 mg capsule 300 mg PO BID Qty: 180 3RF omeprazole 40 mg capsule,delayed release(DR/EC) 40 mg PO DAILY Qty: 90 3RF lorazepam 1 mg tablet 1 mg PO DAILY PRN (Reason: anxiety) Qty: 10 0RF Rx Instructions: Use when considering ER visit clonazepam 1 mg tablet 1 mg PO BID Qty: 56 2RF cyclobenzaprine 10 mg tablet 10 mg PO TID PRN (Reason: muscle spasm) Qty: 30 3RF methadone 10 mg/5 mL solution 100 mg PO QAM calcitriol 0.5 mcg capsule 1 mcg PO .COMPLEX Qty: 270 3RF Rx Instructions: 1 mcg orally t2 tabs qam and 1 tab QHS; calcium carbonate [Tums] 200 mg calcium (500 mg) tablet,chewable 2,000 mg PO BID prochlorperazine maleate 5 mg tablet 5 mg PO TID PRN (Reason: acute nausea) Qty: 30 0RF polyethylene glycol 3350 17 gram powder in packet 17 g PO BID PRN magnesium gluconate 27 mg magnesium (500 mg) tablet 13.5 mg PO TID Qty: 60 3RF Discharge Instructions Additional Instructions: Your chest x-ray, including heart size and lungs look great Your EKG is unremarkable. Your oxygen level is normal and your examination of your lungs is normal. Low suspicion for any significant heart or lung problem causing your shortness of breath. I do recommend that you monitor your symptoms and follow-up closely with your primary care provider for ongoing evaluation. HPI General Date/Time Provider Initiated Documentation: 11/19/24 21:04. Limitations to Documentation: no limitations. Information obtained by: patient. HPI Narrative: 29-year-old gentleman with past medical history of NAFLD, presents for evaluation of shortness of breath. The patient reports that for several weeks he has been having shortness of breath, worse with exertion, worse with laying down. The patient denies much of a cough but also denies any fever or chills, nasal congestion or sore throat. He denies any new chest pains. Related Data Home Medications ?Medication ?Instructions ?Recorded ?Confirmed calcium carbonate (Tums) 2,000 mg PO BID 02/02/23 11/19/24 methadone 10 mg/5 mL oral solution 100 mg PO QAM 06/12/23 11/19/24 prochlorperazine maleate 5 mg 5 mg PO TID PRN acute nausea #30 09/06/23 11/19/24 tablet tabs magnesium gluconate 27 mg 13.5 mg (1/2 x 27 mg magnesium 11/21/23 11/19/24 magnesium (500 mg) tablet (500 mg)) PO TID #60 tabs gabapentin 300 mg capsule 300 mg PO BID #180 caps 06/01/24 11/19/24 calcitriol 0.5 mcg capsule 1 mcg (2 x 0.5 mcg) PO .COMPLEX 06/29/24 11/19/24 #270 caps omeprazole 40 mg capsule,delayed 40 mg PO DAILY #90 caps 07/27/24 11/19/24 release polyethylene glycol 3350 17 gram 17 g PO BID PRN 10/15/24 11/19/24 oral powder packet lorazepam 1 mg tablet 1 mg PO DAILY PRN anxiety #10 tabs 10/19/24 11/19/24 clonazepam 1 mg tablet 1 mg PO BID #56 tabs 11/16/24 11/19/24 cyclobenzaprine 10 mg tablet 10 mg PO TID PRN muscle spasm #30 11/16/24 11/19/24 tabs Previous Rx's ?Medication ?Instructions ?Recorded prochlorperazine maleate 5 mg 5 mg PO TID PRN acute nausea #30 09/06/23 tablet tabs magnesium gluconate 27 mg 13.5 mg (1/2 x 27 mg magnesium 11/21/23 magnesium (500 mg) tablet (500 mg)) PO TID #60 tabs gabapentin 300 mg capsule 300 mg PO BID #180 caps 06/01/24 calcitriol 0.5 mcg capsule 1 mcg (2 x 0.5 mcg) PO .COMPLEX 06/29/24 #270 caps omeprazole 40 mg capsule,delayed 40 mg PO DAILY #90 caps 07/27/24 release lorazepam 1 mg tablet 1 mg PO DAILY PRN anxiety #10 tabs 10/19/24 clonazepam 1 mg tablet 1 mg PO BID #56 tabs 11/16/24 cyclobenzaprine 10 mg tablet 10 mg PO TID PRN muscle spasm #30 11/16/24 tabs Allergies Allergy/AdvReac Type Severity Reaction Status Date / Time codeine Allergy Intermediate pass out Verified 11/19/24 21:03 Penicillins Allergy Skin Rash Verified 11/19/24 21:03 marijuana (cannabis) AdvReac Severe Paranoia Verified 11/19/24 21:03 amoxicillin AdvReac Intermediate Nausea Verified 11/19/24 21:03 dextromethorphan (From AdvReac Intermediate got Verified 11/19/24 21:03 NyQuil) really hot and sweaty doxylamine (From NyQuil) AdvReac Intermediate got Verified 11/19/24 21:03 really hot and sweaty pseudoephedrine (From NyQuil) AdvReac Intermediate got Verified 11/19/24 21:03 really hot and sweaty General Stated Complaint: SOB ADRIANA: 3 Exam Narrative Exam Narrative: Review of Systems: All systems reviewed & are unremarkable except as noted in HPI and below Obese, no acute distress NCAT PERRL, normal conjunctiva RRR no murmur Unlabored respiratory effort no hypoxia no tachypnea clear bilaterally Nondistended abdomen Course Vital Signs Vital signs: Vital Signs Temperature 37.3 C 11/19/24 20:57 Pulse 121 H 11/19/24 20:57 Respiratory Rate 22 11/19/24 20:57 Blood Pressure 136/84 11/19/24 20:57 Pulse Oximetry 95 11/19/24 20:57 Temperature 37.3 C 11/19/24 20:57 Temperature Source Temporal Artery Scan 11/19/24 20:57 Pulse 98 H 11/19/24 21:46 Pulse 97 H 11/19/24 21:46 Respiratory Rate 16 11/19/24 21:46 Respiratory Effort Short of Breath 11/19/24 21:11 Blood Pressure 121/61 11/19/24 21:46 Blood Pressure Mean 77 11/19/24 21:46 Blood Pressure Position Sitting 11/19/24 20:57 Pulse Oximetry 90 L 11/19/24 21:46 Oxygen Delivery Method Room Air 11/19/24 20:57 Oxygen Flow Rate 0 11/19/24 20:57 Pain Level 4 11/19/24 20:57 Medical Decision Making Emergent evaluation of shortness of breath. This is the patient's third medical visit this week. He has not brought up these complaints of shortness of breath at either prior visit despite it being a constant problem for him reportedly for several weeks. His EKG was obtained and reviewed sinus 105 normal axis no STEMI. The patient has chronic tachycardia but this is fairly well-controlled for him at this time. He does not have any symptoms consistent with infectious etiology. I have a low suspicion for a CHF or other acute pulmonary condition. A chest x-ray was obtained and independently interpreted: No focal consolidation, normal heart size, no pulmonary edema or pleural effusion at this time the patient was reassured. I recommend close follow-up with his PCP for ongoing health concerns. Return precautions advised. Quality:SDOH Health Related Social Needs: Health related social needs problems with daily activities (Z73.9) PFSH All Active Problems (Updated 11/19/24 @ 21:44 by Jeovany Elias MD) Anxiety about health (Acute) SOB (shortness of breath) (Acute) Inversion sprain of left ankle (Acute) Obstructive sleep apnea (Chronic) Metabolic dysfunction-associated fatty liver disease (MAFLD) (Acute) Chest pain of uncertain etiology (Acute) Cubital tunnel syndrome (Acute) Carpal tunnel syndrome of right wrist (Acute) Fatty liver (Acute) IBS (irritable bowel syndrome) (Chronic) Obesity (Chronic) Migraine with aura (Acute) Testicle lump (Acute) Pes anserine bursitis (Acute) Cervical radiculopathy (Acute) Left-sided Flower's palsy (Acute) Opiate dependence, continuous (Acute) 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 Possible 2' Methadone, Clnzpm (?). Surg eval (+)/No further action. History of electrolyte imbalance (Acute) Neck pain on left side (Acute) with shoulder, upper back pain.. torticollis, radiating into left hip/leg Pulmonary nodule 1 cm or greater in diameter (Chronic) Therapeutic opioid induced constipation (Acute) Sphincter of Oddi dysfunction (Chronic) Abnormal CT scan, kidney (Acute) Intrahepatic bile duct dilation (Acute) Common bile duct dilatation (Chronic) Has been dilated for quite some time, now more-so. Normal LFTs. Known gallstones. Depression (Chronic) Elevated parathyroid hormone (Acute) Family history of coronary arteriosclerosis (Chronic) Father of NE at 50, mother had NE at 42 Severe anxiety with panic (Chronic) Medical History Multiple endocrine neoplasia type I CKD (chronic kidney disease) stage 2, GFR 60-89 ml/min GFR 64-65, with Hx FLORESITA and GFR < 45 Primary hyperparathyroidism Complex medical condition Serious electrolyte imbalances, with gynecomastia, possible MEN Dx, CKD and anemia with baseline anxiety and Hx PTSD. Hypocalcemia Anxiety Depression Hyperlipidemia Family history of multiple endocrine neoplasia, type 1 PTSD (post-traumatic stress disorder) Per pt. states no triggers at this time. Surgical History History of laparoscopic cholecystectomy (~11/2023) H/O parathyroidectomy Family History Mother Anxiety Asthma Depression Sister Anxiety Depression Father Cancer lung & stomach Depression Diabetes Hypertension MEN 1 (multiple endocrine neoplasia) Social History Smoking/Tobacco Use Status: Never Smoking risk assessment performed?: Yes Alcohol Intake: current Alcohol Intake frequency: holidays/special occasions only Alcohol type: beer Drug use: Current Sobriety Substance use type: former substance user, crack/cocaine, heroin and painkillers Details: stopped using substances for the past 4 years Adopted: No Caregiver/Support person: No Foster care: No Household members: none Housing: apartment Number of Children: 0 Communication Needs: None Education Level: high school Do you need help understanding health information?: Never 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[employer] Pets and animals: Yes (Ally) Pets and animals: dog(s) Sexually active: No Do you think of yourself as: straight/heterosexual Current gender identity: male What is your relationship status?: How often do you talk on the phone with friends or family?: twice per week How often do you get together with friends or relatives?: never Do you belong to any clubs or organized social groups?: no Panel score (0-1 are the most socially isolated patients): 0 What type of physical activity do you participate in: walking Duration: 15-30 minutes/day Frequency: 5-6 times per week Maryam/Pentecostal: Confucianism Special maryam needs: No Seatbelt use: always Helmet use: Yes Helmet use: always 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
--- NOTE | 2024-11-19 22:34 | DI.VRAD_ITS ---
PROCEDURE INFORMATION: Exam: XR Chest Exam date and time: 11/19/2024 9:41 PM Age: 29 years old Clinical indication: Shortness of breath TECHNIQUE: Imaging protocol: Radiologic exam of the chest. Views: 2 views. COMPARISON: CR XR CHEST 2V PA LATERAL 11/04/2024 9:02 PM FINDINGS: Lungs: Unremarkable. No consolidation. Pleural spaces: Unremarkable. No pleural effusion. No pneumothorax. Heart/Mediastinum: Unremarkable. No cardiomegaly. Bones/joints: Unremarkable. IMPRESSION: No acute findings. Dictated and Authenticated by: Erick Mata MD. Orderin Jada Tapia MD
== END 2024-11-19 21:51 | disposition home or self-care (01) ==
PROVIDERS: Emergency Provider Emergency Medicine; PCP Family Medicine
DX: R05.9 Cough, unspecified (principal); R06.02 Shortness of breath; N18.30 Chronic kidney disease, stage 3 unspecified; E89.2 Postprocedural hypoparathyroidism; R00.0 Tachycardia, unspecified
CPT/HCPCS: 93005; 99284; 71046; 93010

== ENCOUNTER 2024-11-30 14:33 | Emergency (ER) | payer OTHER, SELFPAY ==
[2024-11-30 14:40] VITALS: BP 116/74; PULSE 103; RESP 16; TEMP 37.3; O2SAT 93
--- NOTE | 2024-11-30 14:45 | DI.MRI_ITS ---
Exam(s) MR BRAIN WO/W EXAM: MR BRAIN WO/W CLINICAL HISTORY: pituitary mass w/o, new L. peripheral vision loss. TECHNIQUE: Multiplanar multisequence MRI of the brain was performed. CONTRAST MATERIAL: IV Contrast: 20 ML of Dotarem contrast administered. COMPARISON: MR MR BRAIN PITUITARY WO/W from 12/09/2022 FINDINGS: VENTRICLES AND EXTRA AXIAL SPACES: Normal in size and morphology for the patient's age. HEMORRHAGE: None. CEREBRAL PARENCHYMA: No focus of restricted diffusion to suggest acute infarct. No space-occupying lesion identified. BRAINSTEM/CEREBELLUM: Normal. CALVARIUM: Normal. ENHANCEMENT: No suspicious enhancement identified. VISUALIZED PARANASAL SINUSES/MASTOIDS: Minimal mucosal thickening. Orbits: Unremarkable. Optic nerves and optic chiasm appear normal. The globes are intact. Extraocular muscles are symmetric. Pituitary: Not enlarged. No visible mass. Normal enhancement. Vasculature: Normal flow voids. IMPRESSION: Unremarkable MRI of the brain. No evidence of pituitary mass or enlargement. The orbits are unremarkable. DATA REPOSITORY:
--- NOTE | 2024-11-30 15:06 | W.ED.GENAD ---
Discharge Plan Disposition Patient Disposition: Home Condition: Stable Discharge Details Clinical Impression: Change in vision Primary Care Provider: Brendon Vivar ED Provider: Tere Adams Home Meds and New Rx's Prescriptions: No Action gabapentin 300 mg capsule 300 mg PO BID Qty: 180 3RF omeprazole 40 mg capsule,delayed release(DR/EC) 40 mg PO DAILY Qty: 90 3RF lorazepam 1 mg tablet 1 mg PO DAILY PRN (Reason: anxiety) Qty: 10 0RF Rx Instructions: Use when considering ER visit clonazepam 1 mg tablet 1 mg PO BID Qty: 56 2RF cyclobenzaprine 10 mg tablet 10 mg PO TID PRN (Reason: muscle spasm) Qty: 30 3RF methadone 10 mg/5 mL solution 100 mg PO QAM calcitriol 0.5 mcg capsule 1 mcg PO .COMPLEX Qty: 270 3RF Rx Instructions: 1 mcg orally t2 tabs qam and 1 tab QHS; calcium carbonate [Tums] 200 mg calcium (500 mg) tablet,chewable 2,000 mg PO BID prochlorperazine maleate 5 mg tablet 5 mg PO TID PRN (Reason: acute nausea) Qty: 30 0RF polyethylene glycol 3350 17 gram powder in packet 17 g PO BID PRN magnesium gluconate 27 mg magnesium (500 mg) tablet 13.5 mg PO TID Qty: 60 3RF doxycycline monohydrate 100 mg capsule 100 mg PO BID Patient Comments: TAKE ONE CAPSULE BY MOUTH TWICE A DAY FOR 10 DAYS Discharge Instructions Instructions: Eyestrain Additional Instructions: You were seen in the emergency department today for evaluation of changes in your vision. In our department he had a full physical examination performed, had reassuring laboratory studies, and an MRI that did not show any masses in your pituitary. We did not see any other abnormalities which might explain your symptoms, though certainly this could be due to eyestrain, migraine headache, or other conditions that you deal with. Please follow-up with your primary care provider in the next few days to discuss this visit and any symptoms that change, worsen, or persist. Thank you for allowing us to be part of your care. Discharge Data Discharge Date/Time-TO BE ENTERED AT DEPARTURE: 11/30/24 17:22 HPI General Mode of arrival: ambulatory. Date/Time Provider Initiated Documentation: 11/30/24 14:44. Limitations to Documentation: no limitations. Information obtained by: patient, RN/MD and old records reviewed. HPI Narrative: This is a 29-year-old male patient with a past medical history significant for multiple endocrine neoplasia, history of pituitary mass, migraine, presenting from primary care with left-sided peripheral vision deficits. The patient reports that over the weekend he started to notice a numb more strange sensation on the left side of his forehead and face, and noted that the left peripheral aspect of his vision is very blurry and he cannot make anything out on that side. He notices that this persists even when he covers his left eye. He currently is without significant headache symptoms, though he did take some ibuprofen last night for a mild headache. Otherwise notes no changes in his medical conditions, has been taking his medications as prescribed, denies other neurodeficits, weakness, numbness. Related Data Home Medications ?Medication ?Instructions ?Recorded ?Confirmed calcium carbonate (Tums) 2,000 mg PO BID 02/02/23 11/30/24 methadone 10 mg/5 mL oral solution 100 mg PO QAM 06/12/23 11/30/24 prochlorperazine maleate 5 mg 5 mg PO TID PRN acute nausea #30 09/06/23 11/30/24 tablet tabs magnesium gluconate 27 mg 13.5 mg (1/2 x 27 mg magnesium 11/21/23 11/30/24 magnesium (500 mg) tablet (500 mg)) PO TID #60 tabs gabapentin 300 mg capsule 300 mg PO BID #180 caps 06/01/24 11/30/24 calcitriol 0.5 mcg capsule 1 mcg (2 x 0.5 mcg) PO .COMPLEX 06/29/24 11/30/24 #270 caps omeprazole 40 mg capsule,delayed 40 mg PO DAILY #90 caps 07/27/24 11/30/24 release polyethylene glycol 3350 17 gram 17 g PO BID PRN 10/15/24 11/30/24 oral powder packet lorazepam 1 mg tablet 1 mg PO DAILY PRN anxiety #10 tabs 10/19/24 11/30/24 clonazepam 1 mg tablet 1 mg PO BID #56 tabs 11/16/24 11/30/24 cyclobenzaprine 10 mg tablet 10 mg PO TID PRN muscle spasm #30 11/16/24 11/30/24 tabs doxycycline monohydrate 100 mg 100 mg PO BID 11/30/24 11/30/24 capsule Previous Rx's ?Medication ?Instructions ?Recorded prochlorperazine maleate 5 mg 5 mg PO TID PRN acute nausea #30 09/06/23 tablet tabs magnesium gluconate 27 mg 13.5 mg (1/2 x 27 mg magnesium 11/21/23 magnesium (500 mg) tablet (500 mg)) PO TID #60 tabs gabapentin 300 mg capsule 300 mg PO BID #180 caps 06/01/24 calcitriol 0.5 mcg capsule 1 mcg (2 x 0.5 mcg) PO .COMPLEX 06/29/24 #270 caps omeprazole 40 mg capsule,delayed 40 mg PO DAILY #90 caps 07/27/24 release lorazepam 1 mg tablet 1 mg PO DAILY PRN anxiety #10 tabs 10/19/24 clonazepam 1 mg tablet 1 mg PO BID #56 tabs 11/16/24 cyclobenzaprine 10 mg tablet 10 mg PO TID PRN muscle spasm #30 11/16/24 tabs Allergies Allergy/AdvReac Type Severity Reaction Status Date / Time codeine Allergy Intermediate pass out Verified 11/30/24 14:44 Penicillins Allergy Skin Rash Verified 11/30/24 14:44 marijuana (cannabis) AdvReac Severe Paranoia Verified 11/30/24 14:44 amoxicillin AdvReac Intermediate Nausea Verified 11/30/24 14:44 dextromethorphan (From AdvReac Intermediate got Verified 11/30/24 14:44 NyQuil) really hot and sweaty doxylamine (From NyQuil) AdvReac Intermediate got Verified 11/30/24 14:44 really hot and sweaty pseudoephedrine (From NyQuil) AdvReac Intermediate got Verified 11/30/24 14:44 really hot and sweaty General Stated Complaint: EyeProblem ADRIANA: 3 Exam Narrative Exam Narrative: Gen: Awake and alert, in no apparent distress HEENT: Non-icteric sclera, PERRL, EOMs are full and without nystagmus. The patient has a left homonymous hemianopia Neck: Supple Lungs: No apparent respiratory distress, normal respiratory effort. CV: Appears well perfused, strong distal pulses Abdomen: Non-distended MSK: Moves 4 extremities without apparent limitation in ROM Skin: Visualized skin without rashes, cyanosis. Neuro: Normal Gait, cranial nerves II through XII intact and symmetrical bilaterally, 5 out of 5 strength x 4 extremities and no sensory deficits. Speaks in full, clear sentences. Psych: Appropriate for situation. Course Vital Signs Vital signs: Vital Signs Temperature 37.3 C 11/30/24 14:40 Pulse 103 H 11/30/24 14:40 Respiratory Rate 16 11/30/24 14:40 Blood Pressure 116/74 11/30/24 14:40 Pulse Oximetry 93 11/30/24 14:40 Temperature 37.3 C 11/30/24 14:40 Temperature Source Oral 11/30/24 14:40 Pulse 103 H 11/30/24 14:40 Respiratory Rate 16 11/30/24 14:40 Blood Pressure 116/74 11/30/24 14:40 Blood Pressure Position Sitting 11/30/24 14:40 Pulse Oximetry 93 11/30/24 14:40 Oxygen Delivery Method Room Air 11/30/24 14:40 Oxygen Flow Rate 0 11/30/24 14:40 Medical Decision Making This is a 29-year-old male patient presenting for evaluation of homonymous hemianopsia of the left visual field. Differential includes but is not limited to intracranial mass, specifically pituitary mass in this patient with history of same. Considered CVA, intracranial hemorrhage, atypical migraines/ocular migraine. Pattern less consistent with CRAO/CRVO, considered metabolic and electrolyte derangements. No trauma reported to suggest fracture or other injury. The patient's symptoms have been present for several days, and he is out of the window for activation as a stroke alert, tPA, or thrombectomy. We we will obtain an MRI with and without contrast to evaluate for abnormalities to explain the patient's symptoms, and obtain lab Pierce studies to include CBC, CMP, and magnesium. - I reviewed the patient's laboratory studies, which show no leukocytosis, anemia which has been present prior but is slightly worsened compared to levels obtained last month. No, cytopenia. Chemistry panel without significant electrolyte abnormalities, baseline kidney function for this patient and no evidence of significant liver pathology. The patient's MRI was performed, and reviewed by radiology, and they note no abnormalities to account for his symptoms. Specifically, he has no evidence of pituitary mass. On reassessment the patient reports that he is feeling slightly improved, and he speculates that he strained his eyes as he has been watching more TV than is typical for him. I did recommend that he follow-up with his outpatient providers, and return to care with any concerns. At this time, the patient has had a full medical evaluation and is safe for discharge to home. They are hemodynamically stable, ambulatory, and tolerating PO. They are understanding of the follow-up plan and return precautions. They left our facility without incident. Tere Adams MD Quality:SDOH Health Related Social Needs: Health related social needs daily activities PFSH All Active Problems (Updated 11/30/24 @ 17:12 by Tere Adams MD) Change in vision (Acute) Anxiety about health (Acute) SOB (shortness of breath) (Acute) Inversion sprain of left ankle (Acute) Obstructive sleep apnea (Chronic) Metabolic dysfunction-associated fatty liver disease (MAFLD) (Acute) Chest pain of uncertain etiology (Acute) Cubital tunnel syndrome (Acute) Carpal tunnel syndrome of right wrist (Acute) Fatty liver (Acute) IBS (irritable bowel syndrome) (Chronic) Obesity (Chronic) Migraine with aura (Acute) Testicle lump (Acute) Pes anserine bursitis (Acute) Cervical radiculopathy (Acute) Left-sided Flower's palsy (Acute) Opiate dependence, continuous (Acute) 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 Possible 2' Methadone, Clnzpm (?). Surg eval (+)/No further action. History of electrolyte imbalance (Acute) Neck pain on left side (Acute) with shoulder, upper back pain.. torticollis, radiating into left hip/leg Pulmonary nodule 1 cm or greater in diameter (Chronic) Therapeutic opioid induced constipation (Acute) Sphincter of Oddi dysfunction (Chronic) Abnormal CT scan, kidney (Acute) Intrahepatic bile duct dilation (Acute) Common bile duct dilatation (Chronic) Has been dilated for quite some time, now more-so. Normal LFTs. Known gallstones. Depression (Chronic) Elevated parathyroid hormone (Acute) Family history of coronary arteriosclerosis (Chronic) Father of AR at 50, mother had AR at 42 Severe anxiety with panic (Chronic) Medical History Multiple endocrine neoplasia type I CKD (chronic kidney disease) stage 2, GFR 60-89 ml/min GFR 64-65, with Hx FLORESITA and GFR < 45 Primary hyperparathyroidism Complex medical condition Serious electrolyte imbalances, with gynecomastia, possible MEN Dx, CKD and anemia with baseline anxiety and Hx PTSD. Hypocalcemia Anxiety Depression Hyperlipidemia Family history of multiple endocrine neoplasia, type 1 PTSD (post-traumatic stress disorder) Per pt. states no triggers at this time. Surgical History History of laparoscopic cholecystectomy (~11/2023) H/O parathyroidectomy Family History Mother Anxiety Asthma Depression Sister Anxiety Depression Father Cancer lung & stomach Depression Diabetes Hypertension MEN 1 (multiple endocrine neoplasia) Social History Smoking/Tobacco Use Status: Never Smoking risk assessment performed?: Yes Alcohol Intake: current Alcohol Intake frequency: holidays/special occasions only Alcohol type: beer Drug use: Current Sobriety Substance use type: former substance user, crack/cocaine, heroin and painkillers Details: stopped using substances for the past 4 years Adopted: No Caregiver/Support person: No Foster care: No Household members: none Housing: apartment Number of Children: 0 Communication Needs: None Education Level: high school Do you need help understanding health information?: Never current occupation: [employer] Pets and animals: Yes (Ally) Pets and animals: dog(s) Sexually active: No Do you think of yourself as: straight/heterosexual Current gender identity: male What is your relationship status?: How often do you talk on the phone with friends or family?: twice per week How often do you get together with friends or relatives?: never Do you belong to any clubs or organized social groups?: no Panel score (0-1 are the most socially isolated patients): 0 What type of physical activity do you participate in: walking Duration: 15-30 minutes/day Frequency: 5-6 times per week Maryam/Ep[employer]opalian: [employer] Special maryam needs: No Seatbelt use: always Helmet use: Yes Helmet use: always Drive intox or ride w/intox driver salesman: No Do you feel safe at home: Yes Do you feel safe in your relationship?: Yes
[2024-11-30 15:21] LABS: Abs Immature Grans 0.02 10^3/uL (0.0-0.06); Absolute Basophil Count 0.04 10^3/uL (0.0-0.2); Absolute Eosinophil Count 0.14 10^3/uL (0.0-0.7); Absolute Lymphocyte Count 1.64 10^3/uL (1.2-3.4); Absolute Monocyte Count 0.73 10^3/uL (0.1-0.8); Absolute Neutrophil Count 5.24 10^3/uL (1.2-6.7); Basophils % 0.5 %; Eosinophils % 1.8 %; HCT 31.8 % (40.0-50.0); Immature Grans % 0.3 %; MCH 26.7 pg (27.0-33.0); MCHC 31.4 % (32.0-36.0); MCV 85 fL (80-95); MPV 9.4 fL (8.0-11.0); Monocytes % 9.3 %; Neutrophils % 67.1 %; Platelet Count 364 10^3/uL (130-400); RBC 3.74 10^6/uL (4.36-5.78); RDW 17.2 % (11.8-14.1); RDW-SD 53.5 fL; WBC 7.81 10^3/uL (4.4-10.8)
[2024-11-30 15:44] LABS: ALT 46 U/L (16-63); AST 37 U/L (15-37); Albumin 3.1 g/dL (3.4-5.0); Alkaline Phosphatase 148 U/L (46-116); Anion Gap 7.1 mmol/L (3-11); BUN 20 mg/dL (7-18); Bilirubin, Total 0.2 mg/dL (0.2-1.0); CO2 32.9 mmol/L (21.0-32.0); CREATININE 1.8 mg/dL (0.70-1.30); Calcium 9.2 mg/dL (8.5-10.1); Chloride 101 mmol/L (98-107); Estimated GFR 50.97 (mL/min/1.73m2); Glucose 90 mg/dL (74-106); Potassium 3.8 mmol/L (3.5-5.1); Sodium 141 mmol/L (136-145); Total Protein 7.7 g/dL (6.4-8.2)
[2024-11-30] MEDS: Gadoterate meglumine 20 ML SYRINGE IVP (16:15)
[2024-11-30 17:19] VITALS: BP 116/64; PULSE 85; RESP 18; O2SAT 97
[2024-11-30 17:32] VITALS: BP 116/64; PULSE 85; RESP 18; TEMP 37.3; O2SAT 97
== END 2024-11-30 17:22 | disposition home or self-care (01) ==
PROVIDERS: Emergency Provider Emergency Medicine; PCP Family Medicine
DX: H53.452 Other localized visual field defect, left eye (principal); N18.2 Chronic kidney disease, stage 2 (mild); E78.5 Hyperlipidemia, unspecified; E89.2 Postprocedural hypoparathyroidism
CPT/HCPCS: 70553; 80053; 99284; 83735; 85025

== ENCOUNTER 2024-12-04 11:24 | Emergency (ER) | payer OTHER, SELFPAY ==
[2024-12-04 11:27] VITALS: BP 152/85; PULSE 122; RESP 18; TEMP 37; O2SAT 98
[2024-12-04] MEDS: Loratidine 10 MG TAB PO (11:42)
[2024-12-04] MEDS: diphenhydrAMINE 25 MG CAP PO (11:42)
[2024-12-04 12:18] VITALS: BP 125/72; PULSE 93; O2SAT 95
--- NOTE | 2024-12-04 12:44 | W.ED.GENAD ---
Discharge Plan Disposition Patient Disposition: Home Condition: Good Discharge Details Clinical Impression: Adverse reaction to food Primary Care Provider: Brendon Vivar ED Provider: Richy Eagle Home Meds and New Rx's Prescriptions: No Action gabapentin 300 mg capsule 300 mg PO BID Qty: 180 3RF omeprazole 40 mg capsule,delayed release(DR/EC) 40 mg PO DAILY Qty: 90 3RF lorazepam 1 mg tablet 1 mg PO DAILY PRN (Reason: anxiety) Qty: 10 0RF Rx Instructions: Use when considering ER visit clonazepam 1 mg tablet 1 mg PO BID Qty: 56 2RF cyclobenzaprine 10 mg tablet 10 mg PO TID PRN (Reason: muscle spasm) Qty: 30 3RF methadone 10 mg/5 mL solution 100 mg PO QAM calcitriol 0.5 mcg capsule 1 mcg PO .COMPLEX Qty: 270 3RF Rx Instructions: 1 mcg orally t2 tabs qam and 1 tab QHS; calcium carbonate [Tums] 200 mg calcium (500 mg) tablet,chewable 2,000 mg PO BID prochlorperazine maleate 5 mg tablet 5 mg PO TID PRN (Reason: acute nausea) Qty: 30 0RF polyethylene glycol 3350 17 gram powder in packet 17 g PO BID PRN magnesium gluconate 27 mg magnesium (500 mg) tablet 13.5 mg PO TID Qty: 60 3RF doxycycline monohydrate 100 mg capsule 100 mg PO BID Patient Comments: TAKE ONE CAPSULE BY MOUTH TWICE A DAY FOR 10 DAYS Discharge Instructions Instructions: Food allergy Additional Instructions: At this time there is thankfully no evidence to suggest severe allergic reaction to macadamia nut. This may just be a mild side effect. However out of an abundance of caution it would be tucker to avoid them in the future. Please take Benadryl 25 mg every 6 hours and loratadine 10 mg every 24 hours for the next 2 to 3 days as needed. If you notice any worsening of your symptoms, or any new symptoms such as vomiting, diarrhea, fever, chills, shortness of breath, chest pain, numbness, weakness, or fainting , please return immediately to the emergency department for reevaluation. Please follow up with your primary care provider as soon as possible for reassessment and reevaluation. As always, it was a pleasure participating in your medical care today. Referrals: Brendon Vivar DO [Primary Care Provider, Medicine] Discharge Data Discharge Date/Time-TO BE ENTERED AT DEPARTURE: 12/04/24 12:53 HPI General Date/Time Provider Initiated Documentation: 12/04/24 11:37. HPI Narrative: This is a 29-year-old male with a past medical history significant for anxiety, depression, high cholesterol, men type I, multiple electrolyte abnormalities with subsequent parathyroidectomy on 03/26/2022 at [facility], PTSD, GERD, cholecystectomy 12/07. Who presents today for evaluation of concern for allergic reaction. Patient states that his mother is allergic to pine nuts, and he had an energy bar about 45 minutes prior to arrival that had macadamia nuts in it. He has never had macadamia nuts before. Shortly after eating the power bar he began to feel slightly flushed, and tingly. He thought this was odd and came to the ER for further evaluation out of concern for potential allergic reaction. He admits to mild sensation of itchiness, but denies any nausea, vomiting, chest tightness, shortness of breath, or other complaints. Related Data Home Medications ?Medication ?Instructions ?Recorded ?Confirmed calcium carbonate (Tums) 2,000 mg PO BID 02/02/23 12/04/24 methadone 10 mg/5 mL oral solution 100 mg PO QAM 06/12/23 12/04/24 prochlorperazine maleate 5 mg 5 mg PO TID PRN acute nausea #30 09/06/23 12/04/24 tablet tabs magnesium gluconate 27 mg 13.5 mg (1/2 x 27 mg magnesium 11/21/23 12/04/24 magnesium (500 mg) tablet (500 mg)) PO TID #60 tabs gabapentin 300 mg capsule 300 mg PO BID #180 caps 06/01/24 12/04/24 calcitriol 0.5 mcg capsule 1 mcg (2 x 0.5 mcg) PO .COMPLEX 06/29/24 12/04/24 #270 caps omeprazole 40 mg capsule,delayed 40 mg PO DAILY #90 caps 07/27/24 12/04/24 release polyethylene glycol 3350 17 gram 17 g PO BID PRN 10/15/24 12/04/24 oral powder packet lorazepam 1 mg tablet 1 mg PO DAILY PRN anxiety #10 tabs 05/06/25 06/21/25 clonazepam 1 mg tablet 1 mg PO BID #56 tabs 11/16/24 12/04/24 cyclobenzaprine 10 mg tablet 10 mg PO TID PRN muscle spasm #30 11/16/24 12/04/24 tabs doxycycline monohydrate 100 mg 100 mg PO BID 11/30/24 12/04/24 capsule Previous Rx's ?Medication ?Instructions ?Recorded prochlorperazine maleate 5 mg 5 mg PO TID PRN acute nausea #30 09/06/23 tablet tabs magnesium gluconate 27 mg 13.5 mg (1/2 x 27 mg magnesium 11/21/23 magnesium (500 mg) tablet (500 mg)) PO TID #60 tabs gabapentin 300 mg capsule 300 mg PO BID #180 caps 06/01/24 calcitriol 0.5 mcg capsule 1 mcg (2 x 0.5 mcg) PO .COMPLEX 06/29/24 #270 caps omeprazole 40 mg capsule,delayed 40 mg PO DAILY #90 caps 07/27/24 release lorazepam 1 mg tablet 1 mg PO DAILY PRN anxiety #10 tabs 10/19/24 clonazepam 1 mg tablet 1 mg PO BID #56 tabs 11/16/24 cyclobenzaprine 10 mg tablet 10 mg PO TID PRN muscle spasm #30 11/16/24 tabs Allergies Allergy/AdvReac Type Severity Reaction Status Date / Time codeine Allergy Intermediate pass out Verified 12/04/24 11:27 Penicillins Allergy Skin Rash Verified 12/04/24 11:27 marijuana (cannabis) AdvReac Severe Paranoia Verified 12/04/24 11:27 amoxicillin AdvReac Intermediate Nausea Verified 12/04/24 11:27 dextromethorphan (From AdvReac Intermediate got Verified 12/04/24 11:27 NyQuil) really hot and sweaty doxylamine (From NyQuil) AdvReac Intermediate got Verified 12/04/24 11:27 really hot and sweaty pseudoephedrine (From NyQuil) AdvReac Intermediate got Verified 12/04/24 11:27 really hot and sweaty General Stated Complaint: Allergic ADRIANA: 3 Exam Narrative Exam Narrative: 1.Const: Well-nourished, Well-developed, appearing stated age 2.Eyes: PERRL, no conjunctival injection, and symmetrical lids. 3.ENT: Atraumatic external nose and ears. Moist MM. Neck: Symmetric, trachea midline, No thyromegaly. 4.CVS: +S1/S2, Peripheral pulses 2+ and equal in all extremities. Brisk capillary refill in all extremities. 5.RESP: Unlabored respiratory effort. Clear to auscultation bilaterally. No wheezes rales or rhonchi 6.GI: Soft, Nontender/Nondistended, No hepatosplenomegaly. No guarding or rebound. 7.MSK: Normocephalic/Atraumatic, Extremities w/o deformity or ttp No cyanosis or clubbing, Normal movement of all extremities 8.Skin: Warm, Dry. No rashes or lesions. 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 Sensation grossly intact, no focal neurologic deficits. 10.Psych: (AAO) x3. Appropriate mood and affect Course Vital Signs Vital signs: Vital Signs Temperature 37 C 12/04/24 11:27 Pulse 122 H 12/04/24 11:27 Respiratory Rate 18 12/04/24 11:27 Blood Pressure 152/85 H 12/04/24 11:27 Pulse Oximetry 98 12/04/24 11:27 Temperature 37 C 12/04/24 11:27 Temperature Source Tympanic 12/04/24 11:27 Pulse 93 H 12/04/24 12:18 Respiratory Rate 18 12/04/24 11:27 Blood Pressure 125/72 12/04/24 12:18 Blood Pressure Mean 89 12/04/24 12:18 Blood Pressure Position Sitting 12/04/24 11:27 Pulse Oximetry 95 12/04/24 12:18 Oxygen Delivery Method Room Air 12/04/24 12:18 Oxygen Flow Rate 0 12/04/24 12:18 Pain Level 0 12/04/24 11:27 Medical Decision Making This is a 29-year-old male with a past medical history significant for anxiety, depression, high cholesterol, men type I, multiple electrolyte abnormalities with subsequent parathyroidectomy on 03/26/2022 at [facility], PTSD, GERD, cholecystectomy 12/07. Who presents today for evaluation of concern for allergic reaction. Patient states that his mother is allergic to pine nuts, and he had an energy bar about 45 minutes prior to arrival that had macadamia nuts in it. He has never had macadamia nuts before. Shortly after eating the power bar he began to feel slightly flushed, and tingly. He thought this was odd and came to the ER for further evaluation out of concern for potential allergic reaction. He admits to mild sensation of itchiness, but denies any nausea, vomiting, chest tightness, shortness of breath, or other complaints. Exam demonstrates notably well-appearing male, no rash, stridor, wheeze, no evidence to suggest anaphylaxis whatsoever. Patient was tachycardic on arrival, however Pedro Pablo's baseline often leads to his arrival being tachycardic with self normalization shortly thereafter. We will give Benadryl and loratadine, monitor closely for change in symptoms, and reassess. No indication for epinephrine at this time. 1:15 PM On reassessment patient feels well, he states that all of his symptoms have completely subsided. Vital signs have normalized. Patient shows no evidence of allergic reaction or anaphylaxis whatsoever. Patient stable for discharge. Recommend avoidance of macadamia nuts out of an abundance of caution. Discussed red flags for which to return. I have extensively reviewed the treatment plan and discharge instructions with the patient. I have addressed all patient concerns at this time. The patient was made aware of what symptoms to monitor for that would warrant a return to the emergency department. Discussed the plan with the patient, they demonstrate verbal understanding and agreement with our assessment and plan at this time. The documentation in this chart was dictated using [employer] dictation software. Please excuse any dictation errors. Quality:SDOH Health Related Social Needs: Health related social needs daily activities PFSH All Active Problems (Updated 12/04/24 @ 12:48 by Richy Eagle DO) Adverse reaction to food (Acute) Change in vision (Acute) Anxiety about health (Acute) SOB (shortness of breath) (Acute) Inversion sprain of left ankle (Acute) Obstructive sleep apnea (Chronic) Metabolic dysfunction-associated fatty liver disease (MAFLD) (Acute) Chest pain of uncertain etiology (Acute) Cubital tunnel syndrome (Acute) Carpal tunnel syndrome of right wrist (Acute) Fatty liver (Acute) IBS (irritable bowel syndrome) (Chronic) Obesity (Chronic) Migraine with aura (Acute) Testicle lump (Acute) Pes anserine bursitis (Acute) Cervical radiculopathy (Acute) Left-sided Flower's palsy (Acute) Opiate dependence, continuous (Acute) 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 Possible 2' Methadone, Clnzpm (?). Surg eval (+)/No further action. History of electrolyte imbalance (Acute) Neck pain on left side (Acute) with shoulder, upper back pain.. torticollis, radiating into left hip/leg Pulmonary nodule 1 cm or greater in diameter (Chronic) Therapeutic opioid induced constipation (Acute) Sphincter of Oddi dysfunction (Chronic) Abnormal CT scan, kidney (Acute) Intrahepatic bile duct dilation (Acute) Common bile duct dilatation (Chronic) Has been dilated for quite some time, now more-so. Normal LFTs. Known gallstones. Depression (Chronic) Elevated parathyroid hormone (Acute) Family history of coronary arteriosclerosis (Chronic) Father of MA at 50, mother had MA at 42 Severe anxiety with panic (Chronic) Medical History Multiple endocrine neoplasia type I CKD (chronic kidney disease) stage 2, GFR 60-89 ml/min GFR 64-65, with Hx FLORESITA and GFR < 45 Primary hyperparathyroidism Complex medical condition Serious electrolyte imbalances, with gynecomastia, possible MEN Dx, CKD and anemia with baseline anxiety and Hx PTSD. Hypocalcemia Anxiety Depression Hyperlipidemia Family history of multiple endocrine neoplasia, type 1 PTSD (post-traumatic stress disorder) Per pt. states no triggers at this time. Surgical History History of laparoscopic cholecystectomy (~11/2023) H/O parathyroidectomy Family History Mother Anxiety Asthma Depression Sister Anxiety Depression Father Cancer lung & stomach Depression Diabetes Hypertension MEN 1 (multiple endocrine neoplasia) Social History Smoking/Tobacco Use Status: Never Smoking risk assessment performed?: Yes Alcohol Intake: current Alcohol Intake frequency: holidays/special occasions only Alcohol type: beer Drug use: Current Sobriety Substance use type: former substance user, crack/cocaine, heroin and painkillers Details: stopped using substances for the past 4 years Adopted: No Caregiver/Support person: No Foster care: No Household members: none Housing: apartment Number of Children: 0 Communication Needs: None Education Level: high school Do you need help understanding health information?: Never current occupation: [employer] Pets and animals: Yes (Ally) Pets and animals: dog(s) Sexually active: No Do you think of yourself as: straight/heterosexual Current gender identity: male What is your relationship status?: How often do you talk on the phone with friends or family?: twice per week How often do you get together with friends or relatives?: never Do you belong to any clubs or organized social groups?: no Panel score (0-1 are the most socially isolated patients): 0 What type of physical activity do you participate in: walking Duration: 15-30 minutes/day Frequency: 5-6 times per week Maryam/Zoroastrian: Mandaeism Special maryam needs: No Seatbelt use: always Helmet use: Yes Helmet use: always Drive intox or ride w/intox equipment driver: No Do you feel safe at home: Yes Do you feel safe in your relationship?: Yes
[2024-12-04 12:53] VITALS: BP 125/72; PULSE 93; RESP 17; O2SAT 95
== END 2024-12-04 12:53 | disposition home or self-care (01) ==
PROVIDERS: Emergency Provider Student in an Organized Health Care Education/Training Program; PCP Family Medicine
DX: R23.2 Flushing (principal); T78.1XXA Other adverse food reactions, not elsewhere classified, initial encounter
CPT/HCPCS: 99283; 99282

== ENCOUNTER 2024-12-08 20:07 | Emergency (ER) | payer OTHER, SELFPAY ==
[2024-12-08 20:15] VITALS: BP 136/80; PULSE 112; RESP 16; TEMP 36.8; O2SAT 95
[2024-12-08 21:08] VITALS: BP 136/80; PULSE 112; RESP 16; TEMP 36.8; O2SAT 95
--- NOTE | 2024-12-08 21:45 | ED.GENADUL_ITS ---
Discharge Plan Disposition Patient Disposition: Home Condition: Good Discharge Details Clinical Impression: Jaw pain Primary Care Provider: Brendon Vivar ED Provider: Saranya Estrada Home Meds and New Rx's Prescriptions: No Action gabapentin 300 mg capsule 300 mg PO BID Qty: 180 3RF omeprazole 40 mg capsule,delayed release(DR/EC) 40 mg PO DAILY Qty: 90 3RF lorazepam 1 mg tablet 1 mg PO DAILY PRN (Reason: anxiety) Qty: 10 0RF Rx Instructions: Use when considering ER visit clonazepam 1 mg tablet 1 mg PO BID Qty: 56 2RF cyclobenzaprine 10 mg tablet 10 mg PO TID PRN (Reason: muscle spasm) Qty: 30 3RF methadone 10 mg/5 mL solution 100 mg PO QAM calcitriol 0.5 mcg capsule 1 mcg PO .COMPLEX Qty: 270 3RF Rx Instructions: 1 mcg orally t2 tabs qam and 1 tab QHS; calcium carbonate [Tums] 200 mg calcium (500 mg) tablet,chewable 2,000 mg PO BID prochlorperazine maleate 5 mg tablet 5 mg PO TID PRN (Reason: acute nausea) Qty: 30 0RF polyethylene glycol 3350 17 gram powder in packet 17 g PO BID PRN magnesium gluconate 27 mg magnesium (500 mg) tablet 13.5 mg PO TID Qty: 60 3RF doxycycline monohydrate 100 mg capsule 100 mg PO BID Patient Comments: TAKE ONE CAPSULE BY MOUTH TWICE A DAY FOR 10 DAYS Discharge Instructions Instructions: Temporomandibular Joint (TMJ) Disorders (DC) Additional Instructions: Your workup today was reassuring. There were no concerning findings on physical exam or in history. Your jaw pain may be due to holding tension in the jaw. I recommend doing gentle massage, use of Tylenol, ice, and rest. Return to emergency care if you develop new severe jaw pain, difficulty opening your mouth or moving your neck, difficulty swallowing, fevers associated with jaw pain, or if you are very worried and need to be rechecked again immediately. Referrals: Brendon Vivar DO [Primary Care Provider, Medicine] HPI General Date/Time Provider Initiated Documentation: 12/08/24 20:30 . HPI Narrative: Pedro Pablo is a 29-year-old male who presents to the emergency department today for evaluation sudden onset left-sided jaw pain radiating to ear, shoulder blades, neck, and arm. Pain described as deep-seated, originating from jaw and extending into neck. It has since nearly fully resolved after use of Tylenol and ice. He does have some tenderness with palpation of the jaw. No fevers, chills, difficulty opening mouth, difficulty swallowing, chest pain, shortness of breath, nausea, vomiting, headaches, or vision problems. Normal bowel and bladder functions, normal gait. Does admit to significant stress prior to onset. Clicking sensation in jaw since losing teeth. Related Data Home Medications ?Medication ?Instructions ?Recorded ?Confirmed calcium carbonate (Tums) 2,000 mg PO BID 02/02/23 methadone 10 mg/5 mL oral solution 100 mg PO QAM 06/1212/08/24 prochlorperazine maleate 5 mg 5 mg PO TID PRN acute na usea #30 09/06/23 12/08/24 tablet tabs magnesium gluconate 27 mg 13.5 mg (1/2 x 27 mg magnesi um 11/21/23 12/08/24 magnesium (500 mg) tablet (500 mg)) PO TID #60 tabs gabapentin 300 mg capsule 300 mg PO BID #180 caps 05/1612/08/24 calcitriol 0.5 mcg capsule 1 mcg (2 x 0.5 mcg) PO .COM PLEX 06/29/24 12/08/24 #270 caps omeprazole 40 mg capsule,delayed 40 mg PO DAILY #90 ca ps 07/27/24 12/08/24 release polyethylene glycol 3350 17 gram 17 g PO BID PRN 10/1512/08/24 oral powder packet lorazepam 1 mg tablet 1 mg PO DAILY PRN anxiety #1 0 tabs 10/19/24 12/08/24 clonazepam 1 mg tablet 1 mg PO BID #56 tabs 2 5 12/08/24 cyclobenzaprine 10 mg tablet 10 mg PO TID PRN muscle s pasm #30 11/16/24 12/08/24 tabs doxycycline monohydrate 100 mg 100 mg PO BID 11/30/24 12/08/24 capsule Previous Rx's ?Medication ?Instructions ?Recorded prochlorperazine maleate 5 mg 5 mg PO TID PRN acute na usea #30 09/06/23 tablet tabs magnesium gluconate 27 mg 13.5 mg (1/2 x 27 mg magnesi um 11/21/23 magnesium (500 mg) tablet (500 mg)) PO TID #60 tabs gabapentin 300 mg capsule 300 mg PO BID #180 caps 05/16 01/06 calcitriol 0.5 mcg capsule 1 mcg (2 x 0.5 mcg) PO .[employer] PLEX 06/29/24 #270 caps omeprazole 40 mg capsule,delayed 40 mg PO DAILY #90 ca ps 07/27/24 release lorazepam 1 mg tablet 1 mg PO DAILY PRN anxiety #1 0 tabs 10/19/24 clonazepam 1 mg tablet 1 mg PO BID #56 tabs 5 cyclobenzaprine 10 mg tablet 10 mg PO TID PRN muscle s pasm #30 11/16/24 tabs Allergies Allergy/AdvReac Type Severity Reaction Status Date / Time codeine Allergy Intermediate pass out Verified 12/08/24 20:13 Penicillins Allergy Skin Rash Verified 12/08/24 20:13 marijuana (cannabis) AdvReac Severe Paranoia Verified 12/08/24 20:13 amoxicillin AdvReac Intermediate Nausea Verified 12/08/24 20:13 dextromethorphan (From AdvReac Intermediate got Verified 12/08/24 20:13 NyQuil) really hot and sweaty doxylamine (From NyQuil) AdvReac Intermediate got Verified 12/08/24 20:13 really hot and sweaty pseudoephedrine (From NyQuil) AdvReac Intermediate got Verified 12/08/24 20:13 really hot and sweaty General Stated Complaint: FacialProb ADRIANA: 4 Exam Narrative Exam Narrative: General Appearance: Normal. Patient is alert and oriented, no acute distress Vital signs: Within normal limits. HEENT: Eyes: PERRL, EOMI. Ears normal, TMs pearly sexton, translucent. Mild left side jaw tenderness at TMJ. No trismus. Normal oropharynx. Lymphatic: No cervical or submandibular lymphadenopathy. Back, Musculoskeletal: Mild tenderness to palpation of left trapezius. Normal strength and ROM in arms. Neurological: No numbness or weakness, normal gait. Skin: Warm and dry, no rash. Psychiatric: Normal. Course Vital Signs Vital signs: Vital Signs Temperature 36.8 C 12/08/24 20:15 Pulse 112 H 12/08/24 20:15 Respiratory Rate 16 12/08/24 20:15 Blood Pressure 136/80 12/08/24 20:15 Pulse Oximetry 95 12/08/24 20:15 Temperature 36.8 C 12/08/24 21:08 Temperature Source Temporal Artery Scan 12/08/24 21:08 Pulse 112 H 12/08/24 21:08 Respiratory Rate 16 12/08/24 21:08 Blood Pressure 136/80 12/08/24 21:08 Blood Pressure Position Sitting 12/08/24 21:08 Pulse Oximetry 95 12/08/24 21:08 Oxygen Delivery Method Room Air 12/08/24 21:08 Oxygen Flow Rate 0 12/08/24 21:08 Pain Level 7 12/08/24 21:08 Medical Decision Making Initial Assessment: Jaw pain with radiation to shoulder blades, neck, and arm. No dental issues or signs of serious condition. ED Course: - Physical examination of jaw, neck, and shoulders. - Checked lymph nodes, ears, and mouth. - No signs of infection or serious condition. - Ice application and Tylenol provided. - Recommended gentle jaw massage and relaxation techniques. Final Assessment: Likely TMJ disorder. Very reassuring history and physical exam, especially as symptoms have largely resolved with application of ice and Tylenol. No red flags concerning for cardiac or other serious etiology re quiring emergent labs or diagnostic imaging. Clinical Impression: - TMJ disorder Disposition: - Discharge home - Follow-Up: Advised to return if symptoms worsen, including swelling, increased pain, redness, or difficulty opening mouth. Patient Education: Continue ice application, Tylenol, gentle jaw massage, relax jaw, neck, and shoulders. Patient consented to the use of FATMATA Quality:SDOH Health Related Social Needs: Health related social needs daily activities PFSH All Active Problems (Updated 12/08/24 @ 21:45 by Saranya Avila) Jaw pain (Acute) Adverse reaction to food (Acute) Change in vision (Acute) Anxiety about health (Acute) SOB (shortness of breath) (Acute) Inversion sprain of left ankle (Acute) Obstructive sleep apnea (Chronic) Metabolic dysfunction-associated fatty liver disease (MAFLD) (Acute) Cubital tunnel syndrome (Acute) Carpal tunnel syndrome of right wrist (Acute) Fatty liver (Acute) IBS (irritable bowel syndrome) (Chronic) Obesity (Chronic) Migraine with aura (Acute) Testicle lump (Acute) Pes anserine bursitis (Acute) Cervical radiculopathy (Acute) Left-sided Flower's palsy (Acute) Opiate dependence, continuous (Acute) 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 Possible 2' Methadone, Clnzpm (?). Surg eval (+)/No further action. History of electrolyte imbalance (Acute) Neck pain on left side (Acute) with shoulder, upper back pain.. torticollis, radiating into left hip/leg Pulmonary nodule 1 cm or greater in diameter (Chronic) Therapeutic opioid induced constipation (Acute) Sphincter of Oddi dysfunction (Chronic) Abnormal CT scan, kidney (Acute) Intrahepatic bile duct dilation (Acute) Common bile duct dilatation (Chronic) Has been dilated for quite some time, now more-so. Normal LFTs. Known gallstones. Depression (Chronic) Elevated parathyroid hormone (Acute) Family history of coronary arteriosclerosis (Chronic) Father of [place] at 50, mother had [place] at 42 Severe anxiety with panic (Chronic) Medical History Multiple endocrine neoplasia type I CKD (chronic kidney disease) stage 2, GFR 60-89 ml/min GFR 64-65, with Hx FLORESITA and GFR < 45 Primary hyperparathyroidism Complex medical condition Serious electrolyte imbalances, with gynecomastia, possible MEN Dx, CKD and anemia with baseline anxiety and Hx PTSD. Hypocalcemia Anxiety Depression Hyperlipidemia Family history of multiple endocrine neoplasia, type 1 PTSD (post-traumatic stress disorder) Per pt. states no triggers at this time. Surgical History History of laparoscopic cholecystectomy (~11/2023) H/O parathyroidectomy Family History Mother Anxiety Asthma Depression Sister Anxiety Depression Father Cancer lung & stomach Depression Diabetes Hypertension MEN 1 (multiple endocrine neoplasia) Social History Smoking/Tobacco Use Status: Never Smoking risk assessment performed?: Yes Alcohol Intake: current Alcohol Intake frequency: holidays/special occasions only Alcohol type: beer Drug use: Current Sobriety Substance use type: former substance user, crack/cocaine, heroin and painkillers Details: stopped using substances for the past 4 years Adopted: No Caregiver/Support person: No Foster care: No Household members: none Housing: apartment Number of Children: 0 Communication Needs: None Education Level: high school Do you need help understanding health information?: Never 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[employer] Pets and animals: Yes (Ally) Pets and animals: dog(s) Sexually active: No Do you think of yourself as: straight/heterosexual Current gender identity: male What is your relationship status?: How often do you talk on the phone with friends or family?: twice per week How often do you get together with friends or relatives?: never Do you belong to any clubs or organized social groups?: no Panel score (0-1 are the most socially isolated patients): 0 What type of physical activity do you participate in: walking Duration: 15-30 minutes/day Frequency: 5-6 times per week Maryam/Orthodox: Islam Special maryam needs: No Seatbelt use: always Helmet use: Yes Helmet use: always Drive intox or ride w/intox 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
[2024-12-08 21:49] VITALS: BP 132/65; PULSE 98; RESP 18; O2SAT 98
== END 2024-12-08 21:47 | disposition home or self-care (01) ==
PROVIDERS: Emergency Provider Nurse Practitioner Family; PCP Family Medicine
DX: R68.84 Jaw pain (principal)
CPT/HCPCS: 99282; 99283

== ENCOUNTER 2024-12-11 20:06 | Emergency (ER) | payer OTHER, SELFPAY ==
[2024-12-11] VITALS (16 sets, daily range): BP systolic 126–148; BP diastolic 59–78; PULSE 86–105; RESP 12–21; TEMP 36.4; O2SAT 92–97
--- NOTE | 2024-12-11 20:11 | W.ED.GENAD ---
Discharge Plan Disposition Patient Disposition: Home Discharge Details Clinical Impression: Heart palpitations, Anxiety about health Primary Care Provider: Brendon Vivar ED Provider: Saranya Estrada Home Meds and New Rx's Prescriptions: No Action gabapentin 300 mg capsule 300 mg PO BID Qty: 180 3RF omeprazole 40 mg capsule,delayed release(DR/EC) 40 mg PO DAILY Qty: 90 3RF lorazepam 1 mg tablet 1 mg PO DAILY PRN (Reason: anxiety) Qty: 10 0RF Rx Instructions: Use when considering ER visit clonazepam 1 mg tablet 1 mg PO BID Qty: 56 2RF cyclobenzaprine 10 mg tablet 10 mg PO TID PRN (Reason: muscle spasm) Qty: 30 3RF methadone 10 mg/5 mL solution 100 mg PO QAM calcitriol 0.5 mcg capsule 1 mcg PO .COMPLEX Qty: 270 3RF Rx Instructions: 1 mcg orally t2 tabs qam and 1 tab QHS; calcium carbonate [Tums] 200 mg calcium (500 mg) tablet,chewable 2,000 mg PO BID prochlorperazine maleate 5 mg tablet 5 mg PO TID PRN (Reason: acute nausea) Qty: 30 0RF polyethylene glycol 3350 17 gram powder in packet 17 g PO BID PRN magnesium gluconate 27 mg magnesium (500 mg) tablet 13.5 mg PO TID Qty: 60 3RF doxycycline monohydrate 100 mg capsule 100 mg PO BID Patient Comments: TAKE ONE CAPSULE BY MOUTH TWICE A DAY FOR 10 DAYS Discharge Instructions Additional Instructions: I encourage you to call your primary care provider's office first thing Friday to schedule follow-up appointment. Your workup today was reassuring. All of your electrolytes were within normal limits. I encourage you to stay well-hydrated, drinking plenty of fluids throughout the day. Continue taking medications, including supplements as prescribed. Return to emergency care if you develop new chest pains, difficulty breathing, episodes of feeling like you are to pass out, new weakness in your arms or legs, or if you are very worried you need to be rechecked again immediately Referrals: Brendon Vivar DO [Primary Care Provider, Medicine] HPI General Date/Time Provider Initiated Documentation: 12/11/24 20:07. HPI Narrative: Pedro Pablo is a 29year old male who presents to the emergency department today for evaluation of concern of hypomagnesemia. He reports that he feels like he usually does when he has his magnesium low. Reports he woke up this morning feeling flushed with palpitations and tingly feeling all over. Says he has been taking his magnesium supplement as prescribed. Denies recent fevers of 100 degrees, congestion, sore throat, chest pain, change in p.o. intake, nausea/vomiting, abdominal pain, change in bowel or bladder function. He was recently treated for pneumonia, says he just finished his antibiotics and still has some coughing with lingering shortness of breath that he attributes to recovery from pneumonia, which he says has largely resolved. Past medical history is significant for DM type I, electrolyte imbalances, CKD stage II, kidney stones. Surgical history significant for gallbladder removal. Physical exam reassuring. Pedro Pablo is alert and oriented, no acute distress. Mild tachycardia noted consistent with baseline. Easy work of breathing, lung sounds clear bilaterally. Occasional dry cough. Normal heart sounds, regular rate and rhythm. Face slightly flushed, no obvious diaphoresis. D/dx includes but is not limited to: Electrolyte imbalance, dehydration, anxiety, thyroid dysfunction. No red flags concerning for ACS, heart score 1 indicating low risk of MACE; troponin is not indicated based on [facility] ACS high sensitivity troponin decision aid. As Pedro Pablo is feeling overall improved after treatment for pneumonia, no red flags in history or vital sign concerning for treatment resistant pneumonia. I independently interpreted the following tests : EKG shows sinus tachycardia rate 108, normal intervals, no changes consistent with acute ischemia. CBC and BMP reassuring, no change from baseline. Mag and TSH were unremarkable. While in the emergency department, Pedro Pablo received an ice pack for the back of his neck, reported he was feeling similarly better after doing this Workup today reassuring, likely palpitations related to anxiety. Reviewed discharge instructions with patient, including symptomatic management and red flags indicating need for return to emergency care Related Data Home Medications ?Medication ?Instructions ?Recorded ?Confirmed calcium carbonate (Tums) 2,000 mg PO BID 02/02/23 12/11/24 methadone 10 mg/5 mL oral solution 100 mg PO QAM 06/12/23 12/11/24 prochlorperazine maleate 5 mg 5 mg PO TID PRN acute nausea #30 09/06/23 12/11/24 tablet tabs magnesium gluconate 27 mg 13.5 mg (1/2 x 27 mg magnesium 11/21/23 12/11/24 magnesium (500 mg) tablet (500 mg)) PO TID #60 tabs gabapentin 300 mg capsule 300 mg PO BID #180 caps 06/01/24 12/11/24 calcitriol 0.5 mcg capsule 1 mcg (2 x 0.5 mcg) PO .COMPLEX 06/29/24 12/11/24 #270 caps omeprazole 40 mg capsule,delayed 40 mg PO DAILY #90 caps 07/27/24 12/11/24 release polyethylene glycol 3350 17 gram 17 g PO BID PRN 10/15/24 12/11/24 oral powder packet lorazepam 1 mg tablet 1 mg PO DAILY PRN anxiety #10 tabs 10/19/24 12/11/24 clonazepam 1 mg tablet 1 mg PO BID #56 tabs 11/16/24 12/11/24 cyclobenzaprine 10 mg tablet 10 mg PO TID PRN muscle spasm #30 11/16/24 12/11/24 tabs doxycycline monohydrate 100 mg 100 mg PO BID 11/30/24 12/11/24 capsule Previous Rx's ?Medication ?Instructions ?Recorded prochlorperazine maleate 5 mg 5 mg PO TID PRN acute nausea #30 09/06/23 tablet tabs magnesium gluconate 27 mg 13.5 mg (1/2 x 27 mg magnesium 11/21/23 magnesium (500 mg) tablet (500 mg)) PO TID #60 tabs gabapentin 300 mg capsule 300 mg PO BID #180 caps 06/01/24 calcitriol 0.5 mcg capsule 1 mcg (2 x 0.5 mcg) PO .COMPLEX 06/29/24 #270 caps omeprazole 40 mg capsule,delayed 40 mg PO DAILY #90 caps 07/27/24 release lorazepam 1 mg tablet 1 mg PO DAILY PRN anxiety #10 tabs 10/19/24 clonazepam 1 mg tablet 1 mg PO BID #56 tabs 11/16/24 cyclobenzaprine 10 mg tablet 10 mg PO TID PRN muscle spasm #30 11/16/24 tabs Allergies Allergy/AdvReac Type Severity Reaction Status Date / Time codeine Allergy Intermediate pass out Verified 12/11/24 20:10 Penicillins Allergy Skin Rash Verified 12/11/24 20:10 marijuana (cannabis) AdvReac Severe Paranoia Verified 12/11/24 20:10 amoxicillin AdvReac Intermediate Nausea Verified 12/11/24 20:10 dextromethorphan (From AdvReac Intermediate got Verified 12/11/24 20:10 NyQuil) really hot and sweaty doxylamine (From NyQuil) AdvReac Intermediate got Verified 12/11/24 20:10 really hot and sweaty pseudoephedrine (From NyQuil) AdvReac Intermediate got Verified 12/11/24 20:10 really hot and sweaty General ADRIANA: 4 Exam Const General: cooperative, healthy appearing, comfortable, no acute distress, well developed and well groomed Nutritional Appearance: overweight Resp Effort & Inspection: normal respiratory effort and able to speak in complete sentences Auscultation: clear to auscultation bilaterally Cardio Rate: regular rate Rhythm: regular rhythm Skin General skin exam: no rashes or lesions noted Neuro General: patient alert, patient oriented x3, gait normal, tone normal and moves all extremities Cognition: normal cognition Speech: speech normal Gait: normal gait Motor: muscle tone normal throughout Extrem General: normal to inspection Medical Decision Making Quality:SDOH Health Related Social Needs: Health related social needs daily activities PFSH All Active Problems (Updated 12/11/24 @ 22:16 by Saranya Avila) Heart palpitations (Acute) Jaw pain (Acute) Adverse reaction to food (Acute) Change in vision (Acute) Anxiety about health (Acute) SOB (shortness of breath) (Acute) Inversion sprain of left ankle (Acute) Obstructive sleep apnea (Chronic) Metabolic dysfunction-associated fatty liver disease (MAFLD) (Acute) Cubital tunnel syndrome (Acute) Carpal tunnel syndrome of right wrist (Acute) Fatty liver (Acute) IBS (irritable bowel syndrome) (Chronic) Obesity (Chronic) Migraine with aura (Acute) Testicle lump (Acute) Pes anserine bursitis (Acute) Cervical radiculopathy (Acute) Left-sided Flower's palsy (Acute) Opiate dependence, continuous (Acute) 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 Possible 2' Methadone, Clnzpm (?). Surg eval (+)/No further action. History of electrolyte imbalance (Acute) Neck pain on left side (Acute) with shoulder, upper back pain.. torticollis, radiating into left hip/leg Pulmonary nodule 1 cm or greater in diameter (Chronic) Therapeutic opioid induced constipation (Acute) Sphincter of Oddi dysfunction (Chronic) Abnormal CT scan, kidney (Acute) Intrahepatic bile duct dilation (Acute) Common bile duct dilatation (Chronic) Has been dilated for quite some time, now more-so. Normal LFTs. Known gallstones. Depression (Chronic) Elevated parathyroid hormone (Acute) Family history of coronary arteriosclerosis (Chronic) Father of [place] at 50, mother had [place] at 42 Severe anxiety with panic (Chronic) Medical History Multiple endocrine neoplasia type I CKD (chronic kidney disease) stage 2, GFR 60-89 ml/min GFR 64-65, with Hx FLORESITA and GFR < 45 Primary hyperparathyroidism Complex medical condition Serious electrolyte imbalances, with gynecomastia, possible MEN Dx, CKD and anemia with baseline anxiety and Hx PTSD. Hypocalcemia Anxiety Depression Hyperlipidemia Family history of multiple endocrine neoplasia, type 1 PTSD (post-traumatic stress disorder) Per pt. states no triggers at this time. Surgical History History of laparoscopic cholecystectomy (~11/2023) H/O parathyroidectomy Family History Mother Anxiety Asthma Depression Sister Anxiety Depression Father Cancer lung & stomach Depression Diabetes Hypertension MEN 1 (multiple endocrine neoplasia) Social History Smoking/Tobacco Use Status: Never Smoking risk assessment performed?: Yes Alcohol Intake: current Alcohol Intake frequency: holidays/special occasions only Alcohol type: beer Drug use: Current Sobriety Substance use type: former substance user, crack/cocaine, heroin and painkillers Details: stopped using substances for the past 4 years Adopted: No Caregiver/Support person: No Foster care: No Household members: none Housing: apartment Number of Children: 0 Communication Needs: None Education Level: high school Do you need help understanding health information?: Never 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 Pets and animals: Yes (Ally) Pets and animals: dog(s) Sexually active: No Do you think of yourself as: straight/heterosexual Current gender identity: male What is your relationship status?: How often do you talk on the phone with friends or family?: twice per week How often do you get together with friends or relatives?: never Do you belong to any clubs or organized social groups?: no Panel score (0-1 are the most socially isolated patients): 0 What type of physical activity do you participate in: walking Duration: 15-30 minutes/day Frequency: 5-6 times per week Maryam/Baptism: Bahai Special maryam needs: No Seatbelt use: always Helmet use: Yes Helmet use: always Drive intox or ride w/intox 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
--- NOTE | 2024-12-11 20:15 | RT.EKG_ITS ---
APPROVED REPORT Exam: Resting ECG Reason for Exam: paplitation Patient Location: E HR:108 bpm ECG Measurements Heart Rate 108 AXIS UT 172 P 25 QRSd 92 QRS 22 QT 345 T 14 QTc 463 Conclusion Sinus tachycardia at a rate of 108 with normal intervals without acute ischemic change
[2024-12-11 20:37] LABS: HGB 10.8 g/dL (13.5-17.5); MCH 26.2 pg (27.0-33.0); MCHC 30.9 % (32.0-36.0); MCV 85 fL (80-95); MPV 10.1 fL (8.0-11.0); Platelet Count 348 10^3/uL (130-400); RBC 4.13 10^6/uL (4.36-5.78); RDW 16.8 % (11.8-14.1); RDW-SD 52.2 fL; WBC 9.08 10^3/uL (4.4-10.8)
[2024-12-11 21:09] LABS: TSH (W/Ref FT4) 2.91 uIU/mL (0.36-3.74)
[2024-12-11 21:45] LABS: Magnesium 1.9 mg/dL (1.8-2.4)
[2024-12-11 21:55] LABS: Lab Add On Test DONE
[2024-12-11 22:17] LABS: Anion Gap 9.3 mmol/L (3-11); BUN 20 mg/dL (7-18); CO2 30.7 mmol/L (21.0-32.0); CREATININE 1.8 mg/dL (0.70-1.30); Calcium 9.3 mg/dL (8.5-10.1); Chloride 97 mmol/L (98-107); Estimated GFR 50.97 (mL/min/1.73m2); Glucose 107 mg/dL (74-106); Potassium 3.9 mmol/L (3.5-5.1); Sodium 137 mmol/L (136-145)
== END 2024-12-11 22:28 | disposition home or self-care (01) ==
PROVIDERS: Emergency Provider Nurse Practitioner Family; PCP Family Medicine
DX: R00.2 Palpitations (principal); R41.9 Unspecified symptoms and signs involving cognitive functions and awareness; E10.9 Type 1 diabetes mellitus without complications; N18.2 Chronic kidney disease, stage 2 (mild); E78.5 Hyperlipidemia, unspecified; E89.2 Postprocedural hypoparathyroidism
CPT/HCPCS: 80048; 85027; 93005; 99284; 83735; 84443; 93010; 99283

== ENCOUNTER 2024-12-20 05:44 | Emergency (ER) | payer OTHER, SELFPAY ==
--- NOTE | 2024-12-20 05:45 | DI.RAD_ITS ---
Exam(s) XR CHEST 2V PA LATERAL EXAM: XR CHEST 2V PA LATERAL CLINICAL HISTORY: cough. TECHNIQUE: 2D digital imaging was performed. COMPARISON: CR,XR XR CHEST 2V PA LATERAL from 11/19/2024 FINDINGS: 2 views: Heart size is normal. The mediastinum is not widened. Lungs are clear. No infiltrates nor pleural effusions. IMPRESSION: No acute pulmonary findings. DATA REPOSITORY: RADIATION DOSE DELIVERED:
[2024-12-20 05:46] VITALS: BP 142/97; PULSE 111; RESP 18; TEMP 37.6; O2SAT 95
[2024-12-20 05:51] VITALS: BP 142/97; PULSE 111; RESP 18; TEMP 37.6; O2SAT 95
--- NOTE | 2024-12-20 05:51 | ED.GENADUL_ITS ---
Discharge Plan Disposition Patient Disposition: Home Condition: Good Discharge Details Clinical Impression: Cough Primary Care Provider: Brendon Vivar ED Provider: Santiago Ibarra [place] Meds and New Rx's Prescriptions: Continued gabapentin 300 mg capsule 300 mg PO BID Qty: 180 3RF omeprazole 40 mg capsule,delayed release(DR/EC) 40 mg PO DAILY Qty: 90 3RF lorazepam 1 mg tablet 1 mg PO DAILY PRN (Reason: anxiety) Qty: 10 0RF Rx Instructions: Use when considering ER visit clonazepam 1 mg tablet 1 mg PO BID Qty: 56 2RF cyclobenzaprine 10 mg tablet 10 mg PO TID PRN (Reason: muscle spasm) Qty: 30 3RF methadone 10 mg/5 mL solution 100 mg PO QAM calcitriol 0.5 mcg capsule 1 mcg PO .COMPLEX Qty: 270 3RF Rx Instructions: 1 mcg orally t2 tabs qam and 1 tab QHS; calcium carbonate [Tums] 200 mg calcium (500 mg) tablet,chewable 2,000 mg PO BID prochlorperazine maleate 5 mg tablet 5 mg PO TID PRN (Reason: acute nausea) Qty: 30 0RF polyethylene glycol 3350 17 gram powder in packet 17 g PO BID PRN magnesium gluconate 27 mg magnesium (500 mg) tablet 13.5 mg PO TID Qty: 60 3RF Discharge Instructions Additional Instructions: You were seen for a cough in the setting of recent pneumonia. Your vital signs, exam, chest x-ray this morning are reassuring. Recommend trying cough medicine over the next couple of days and follow-up with primary care if not improving. Return to ED for any persistent chest pain or shortness of breath, neurologic change, other concerns. Referrals: Brendon Vivar DO [Primary Care Provider, Medicine] Discharge Data Discharge Date/Time-TO BE ENTERED AT DEPARTURE: 12/20/24 06:52 HPI General Mode of arrival: ambulatory . Date/Time Provider Initiated Documentation: 12/20/24 05:50 . Limitations to Documentation: no limitations . Information obtained by: patient and RN notes reviewed . HPI Narrative: Patient presents to ED with complaint of cough and congestion in his chest. Patient reports recently being diagnosed with pneumonia at [facility]. He has finished a course of doxycycline. Reports that he had been feeling better but developed a cough over the last 24 hours and feels rattling and congestion in his chest. Has a little bit of a left earache. Does not have any chest pain. Occasionally feels short of breath but nothing persistent. No abdominal complaints. Related Data Home Medications ?Medication ?Instructions ?Recorded ?Confirmed calcium carbonate (Tums) 2,000 mg PO BID 02/02/2301/07 methadone 10 mg/5 mL oral solution 100 mg PO QAM 06/1212/20/24 prochlorperazine maleate 5 mg 5 mg PO TID PRN acute na usea #30 09/06/23 12/20/24 tablet tabs magnesium gluconate 27 mg 13.5 mg (1/2 x 27 mg magnesi um 11/21/23 12/20/24 magnesium (500 mg) tablet (500 mg)) PO TID #60 tabs gabapentin 300 mg capsule 300 mg PO BID #180 caps 05/1612/20/24 calcitriol 0.5 mcg capsule 1 mcg (2 x 0.5 mcg) PO .Novacem PLEX 06/29/24 12/20/24 #270 caps omeprazole 40 mg capsule,delayed 40 mg PO DAILY #90 ca ps 07/27/24 12/20/24 release polyethylene glycol 3350 17 gram 17 g PO BID PRN 10/1512/20/24 oral powder packet lorazepam 1 mg tablet 1 mg PO DAILY PRN anxiety #1 0 tabs 10/19/24 12/20/24 clonazepam 1 mg tablet 1 mg PO BID #56 tabs 5 12/20/24 cyclobenzaprine 10 mg tablet 10 mg PO TID PRN muscle s pasm #30 11/16/24 12/20/24 tabs Previous Rx's ?Medication ?Instructions ?Recorded prochlorperazine maleate 5 mg 5 mg PO TID PRN acute na usea #30 09/06/23 tablet tabs magnesium gluconate 27 mg 13.5 mg (1/2 x 27 mg magnesi um 11/21/23 magnesium (500 mg) tablet (500 mg)) PO TID #60 tabs gabapentin 300 mg capsule 300 mg PO BID #180 caps 05/16 01/06 calcitriol 0.5 mcg capsule 1 mcg (2 x 0.5 mcg) PO .Novacem PLEX 06/29/24 #270 caps omeprazole 40 mg capsule,delayed 40 mg PO DAILY #90 ca ps 07/27/24 release lorazepam 1 mg tablet 1 mg PO DAILY PRN anxiety #1 0 tabs 10/19/24 clonazepam 1 mg tablet 1 mg PO BID #56 tabs 5 cyclobenzaprine 10 mg tablet 10 mg PO TID PRN muscle s pasm #30 11/16/24 tabs Allergies Allergy/AdvReac Type Severity Reaction Status Date / Time codeine Allergy Intermediate pass out Verified 12/20/24 05:50 Penicillins Allergy Skin Rash Verified 12/20/24 05:50 marijuana (cannabis) AdvReac Severe Paranoia Verified 12/20/24 05:50 amoxicillin AdvReac Intermediate Nausea Verified 12/20/24 05:50 dextromethorphan (From AdvReac Intermediate got Verified 12/20/24 05:50 NyQuil) really hot and sweaty doxylamine (From NyQuil) AdvReac Intermediate got Verified 12/20/24 05:50 really hot and sweaty pseudoephedrine (From NyQuil) AdvReac Intermediate got Verified 12/20/24 05:50 really hot and sweaty General Stated Complaint: RespSymp ADRIANA: 4 Exam Narrative Exam Narrative: Const: WDWN male in NAD. VS per triage. HEENT: NC/AT. Normal facial exam. Normal TM bilaterally. Normal oropharynx. Neck: Supple. Trachea midline. Lungs: Normal respiratory effort. Lungs are clear. Cor: RRR without murmur. Good radial pulses. Neuro: A+O x 3. Normal speech, mentation, gait. Cranial nerves II - XII grossly intact. No gross motor or sensory deficit. Course Vital Signs Vital signs: Vital Signs Temperature 99.6 F 12/20/24 05:46 Pulse 111 H 12/20/24 05:46 Respiratory Rate 18 12/20/24 05:46 Blood Pressure 142/97 H 12/20/24 05:46 Pulse Oximetry 95 12/20/24 05:46 Temperature 99.6 F 12/20/24 05:46 Temperature Source Tympanic 12/20/24 05:46 Pulse 111 H 12/20/24 05:46 Respiratory Rate 18 12/20/24 05:46 Blood Pressure 142/97 H 12/20/24 05:46 Blood Pressure Position Sitting 12/20/24 05:46 Pulse Oximetry 95 12/20/24 05:46 Oxygen Delivery Method Room Air 12/20/24 05:46 Oxygen Flow Rate 0 12/20/24 05:46 Pain Level 3 12/20/24 05:46 Medical Decision Making Patient presenting to ED complaint of cough and some increased chest congestion after recently finishing doxycycline for pneumonia diagnosed at [facility]. Patient looks well. Saturations are normal. Lungs are clear. Do not think he requires any type of laboratory studies today. Will get a repeat chest x-ray. Chest x-ray per my read with no acute cardiopulmonary process, specifically no pneumonia. Patient reassured. May take cough medicine as needed especially at night. Follow-up with primary care if not improving over the next week. Return precautions provided. Imaging Data Radiologic Study: Attestation: I personally reviewed and interpreted this imaging study as follows: Imaging: X-Ray My impression: Negative chest x-ray PFSH All Active Problems Cough (Acute) Heart palpitations (Acute) Jaw pain (Acute) Adverse reaction to food (Acute) Change in vision (Acute) Obstructive sleep apnea (Chronic) Metabolic dysfunction-associated fatty liver disease (MAFLD) (Acute) Fatty liver (Acute) IBS (irritable bowel syndrome) (Chronic) Obesity (Chronic) Migraine with aura (Acute) Testicle lump (Acute) Pes anserine bursitis (Acute) Left-sided Flower's palsy (Acute) Opiate dependence, continuous (Acute) 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 Possible 2' Methadone, Clnzpm (?). Surg eval (+)/No further action. History of electrolyte imbalance (Acute) Neck pain on left side (Acute) with shoulder, upper back pain.. torticollis, radiating into left hip/leg Pulmonary nodule 1 cm or greater in diameter (Chronic) Therapeutic opioid induced constipation (Acute) Sphincter of Oddi dysfunction (Chronic) Abnormal CT scan, kidney (Acute) Intrahepatic bile duct dilation (Acute) Common bile duct dilatation (Chronic) Has been dilated for quite some time, now more-so. Normal LFTs. Known gallstones. Depression (Chronic) Elevated parathyroid hormone (Acute) Family history of coronary arteriosclerosis (Chronic) Father of ND at 50, mother had ND at 42 Severe anxiety with panic (Chronic) Medical History Multiple endocrine neoplasia type I CKD (chronic kidney disease) stage 2, GFR 60-89 ml/min GFR 64-65, with Hx FLORESITA and GFR < 45 Primary hyperparathyroidism Complex medical condition Serious electrolyte imbalances, with gynecomastia, possible MEN Dx, CKD and anemia with baseline anxiety and Hx PTSD. Hypocalcemia Anxiety Depression Hyperlipidemia Family history of multiple endocrine neoplasia, type 1 PTSD (post-traumatic stress disorder) Per pt. states no triggers at this time. Surgical History History of laparoscopic cholecystectomy (~11/2023) H/O parathyroidectomy Family History Mother Anxiety Asthma Depression Sister Anxiety Depression Father Cancer lung & stomach Depression Diabetes Hypertension MEN 1 (multiple endocrine neoplasia) Social History Smoking/Tobacco Use Status: Never Smoking risk assessment performed?: Yes Alcohol Intake: current Alcohol Intake frequency: holidays/special occasions only Alcohol type: beer Drug use: Current Sobriety Substance use type: former substance user, crack/cocaine, heroin and painkillers Details: stopped using substances for the past 4 years Adopted: No Caregiver/Support person: No Foster care: No Household members: none Housing: apartment Number of Children: 0 Communication Needs: None Education Level: high school Do you need help understanding health information?: Never 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 [employer] Pets and animals: Yes (Ally) Pets and animals: dog(s) Sexually active: No Do you think of yourself as: straight/heterosexual Current gender identity: male What is your relationship status?: How often do you talk on the phone with friends or family?: twice per week How often do you get together with friends or relatives?: never Do you belong to any clubs or organized social groups?: no Panel score (0-1 are the most socially isolated patients): 0 What type of physical activity do you participate in: walking Duration: 15-30 minutes/day Frequency: 5-6 times per week Maryam/Denominational: Synagogue Special maryam needs: No Seatbelt use: always Helmet use: Yes Helmet use: always 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
--- NOTE | 2024-12-20 07:34 | DI.VRAD_ITS ---
PROCEDURE INFORMATION: Exam: XR Chest Exam date and time: 12/20/2024 6:16 AM Age: 29 years old Clinical indication: Cough TECHNIQUE: Imaging protocol: Radiologic exam of the chest. Views: 2 views. COMPARISON: CR XR CHEST 2V PA LATERAL 11/19/2024 9:41 PM FINDINGS: Lungs: Unremarkable. No consolidation. Pleural spaces: Unremarkable. No pleural effusion. No pneumothorax. Heart/Mediastinum: The cardiomediastinal silhouette is fairly stable in appearance. Bones/joints: Unremarkable. IMPRESSION: No evidence for acute pulmonary disease. Dictated and Authenticated by: Ricardo Herbert MD. Orderin Fred Henderson MD
== END 2024-12-20 06:52 | disposition home or self-care (01) ==
PROVIDERS: Emergency Provider Emergency Medicine; PCP Family Medicine
DX: R05.9 Cough, unspecified (principal); N18.2 Chronic kidney disease, stage 2 (mild); E78.5 Hyperlipidemia, unspecified; E89.2 Postprocedural hypoparathyroidism; Z82.49 Family history of ischemic heart disease and other diseases of the circulatory system
CPT/HCPCS: 99283; 71046

== ENCOUNTER 2024-12-22 10:12 | Emergency (ER) | payer OTHER, SELFPAY ==
[2024-12-22 10:24] VITALS: BP 134/98; PULSE 103; RESP 18; TEMP 36.8; O2SAT 94
--- NOTE | 2024-12-22 11:40 | ED.GENADUL_ITS ---
Discharge Plan Disposition Patient Disposition: Home Discharge Details Clinical Impression: Leg pain Primary Care Provider: Brendon Vivar ED Provider: Jeovany Elias Home Meds and New Rx's Prescriptions: No Action gabapentin 300 mg capsule 300 mg PO BID Qty: 180 3RF omeprazole 40 mg capsule,delayed release(DR/EC) 40 mg PO DAILY Qty: 90 3RF lorazepam 1 mg tablet 1 mg PO DAILY PRN (Reason: anxiety) Qty: 10 0RF Rx Instructions: Use when considering ER visit clonazepam 1 mg tablet 1 mg PO BID Qty: 56 2RF cyclobenzaprine 10 mg tablet 10 mg PO TID PRN (Reason: muscle spasm) Qty: 30 3RF methadone 10 mg/5 mL solution 100 mg PO QAM calcitriol 0.5 mcg capsule 1 mcg PO .COMPLEX Qty: 270 3RF Rx Instructions: 1 mcg orally t2 tabs qam and 1 tab QHS; calcium carbonate [Tums] 200 mg calcium (500 mg) tablet,chewable 2,000 mg PO BID prochlorperazine maleate 5 mg tablet 5 mg PO TID PRN (Reason: acute nausea) Qty: 30 0RF polyethylene glycol 3350 17 gram powder in packet 17 g PO BID PRN magnesium gluconate 27 mg magnesium (500 mg) tablet 13.5 mg PO TID Qty: 60 3RF Discharge Instructions Additional Instructions: you do not have any signs or symptoms of a blood clot today monitor symptoms and reach out to your PCP if they feel worse, an outpatient US can be ordered HPI General Date/Time Provider Initiated Documentation: 12/22/24 11:14 . Limitations to Documentation: no limitations . Information obtained by: patient and old records reviewed . HPI Narrative: 29-year-old gentleman with past medical history of anxiety presents for evaluation of right leg pain. Patient reports that he has been having cough for some time. He states that about 2 hours ago his right leg started hurting. He states that he measured his calf with a measuring tape and did not notice his change in size. He denies any trauma. He states that he is worried he has a blood clot. Related Data Home Medications ?Medication ?Instructions ?Recorded ?Confirmed calcium carbonate (Tums) 2,000 mg PO BID 02/02/2303/10 methadone 10 mg/5 mL oral solution 100 mg PO QAM 06/1212/22/24 prochlorperazine maleate 5 mg 5 mg PO TID PRN acute na usea #30 09/06/23 12/22/24 tablet tabs magnesium gluconate 27 mg 13.5 mg (1/2 x 27 mg magnesi 11/21/23 12/22/24 magnesium (500 mg) tablet (500 mg)) PO TID #60 tabs gabapentin 300 mg capsule 300 mg PO BID #180 caps 05/1612/22/24 calcitriol 0.5 mcg capsule 1 mcg (2 x 0.5 mcg) PO .COM PLEX 06/29/24 12/22/24 #270 caps omeprazole 40 mg capsule,delayed 40 mg PO DAILY #90 ca ps 07/27/24 12/22/24 release polyethylene glycol 3350 17 gram 17 g PO BID PRN 10/1512/22/24 oral powder packet lorazepam 1 mg tablet 1 mg PO DAILY PRN anxiety #1 0 tabs 10/19/24 12/22/24 clonazepam 1 mg tablet 1 mg PO BID #56 tabs 5 12/22/24 cyclobenzaprine 10 mg tablet 10 mg PO TID PRN muscle s pasm #30 11/16/24 12/22/24 tabs Previous Rx's ?Medication ?Instructions ?Recorded prochlorperazine maleate 5 mg 5 mg PO TID PRN acute na usea #30 09/06/23 tablet tabs magnesium gluconate 27 mg 13.5 mg (1/2 x 27 mg magnesi 11/21/23 magnesium (500 mg) tablet (500 mg)) PO TID #60 tabs gabapentin 300 mg capsule 300 mg PO BID #180 caps 05/16 01/06 calcitriol 0.5 mcg capsule 1 mcg (2 x 0.5 mcg) PO .ConfortVisuel PLEX 06/29/24 #270 caps omeprazole 40 mg capsule,delayed 40 mg PO DAILY #90 ca ps 07/27/24 release lorazepam 1 mg tablet 1 mg PO DAILY PRN anxiety #1 0 tabs 10/19/24 clonazepam 1 mg tablet 1 mg PO BID #56 tabs 5 cyclobenzaprine 10 mg tablet 10 mg PO TID PRN muscle s pasm #30 11/16/24 tabs Allergies Allergy/AdvReac Type Severity Reaction Status Date / Time codeine Allergy Intermediate pass out Verified 12/22/24 10:28 Penicillins Allergy Skin Rash Verified 12/22/24 10:28 marijuana (cannabis) AdvReac Severe Paranoia Verified 12/22/24 10:28 amoxicillin AdvReac Intermediate Nausea Verified 12/22/24 10:28 dextromethorphan (From AdvReac Intermediate got Verified 12/22/24 10:28 NyQuil) really hot and sweaty doxylamine (From NyQuil) AdvReac Intermediate got Verified 12/22/24 10:28 really hot and sweaty pseudoephedrine (From NyQuil) AdvReac Intermediate got Verified 12/22/24 10:28 really hot and sweaty General Stated Complaint: GenMedical ADRIANA: 3 Exam Narrative Exam Narrative: Review of Systems: All systems reviewed & are unremarkable except as noted in HPI and below Well-developed, no acute distress NCAT Mild tachycardia Unlabored respiratory effort, clear breath sounds Bilateral lower extremities without erythema, color change, swelling or significant tenderness Anxious Course Vital Signs Vital signs: Vital Signs Temperature 36.8 C 12/22/24 10:24 Pulse 103 H 12/22/24 10:24 Respiratory Rate 18 12/22/24 10:24 Blood Pressure 134/98 H 12/22/24 10:24 Pulse Oximetry 94 12/22/24 10:24 Temperature 36.8 C 12/22/24 10:24 Pulse 103 H 12/22/24 10:24 Respiratory Rate 18 12/22/24 10:24 Blood Pressure 134/98 H 12/22/24 10:24 Blood Pressure Position Supine 12/22/24 10:24 Pulse Oximetry 94 12/22/24 10:24 Oxygen Delivery Method Room Air 12/22/24 10:24 Oxygen Flow Rate 0 12/22/24 10:24 Pain Level 6 12/22/24 10:24 Medical Decision Making Emergent evaluation of right lower extremity pain. Patient has no signs of abnormality, swelling, significant tenderness. Examination at this time is not consistent with a DVT. The patient was advised that since his symptoms have only been ongoing for 2 hours it is unlikely that a DVT would show on ultrasound anyway. He is hemodynamically stable. I recommend that he monitor his symptoms, take Motrin and Tylenol as needed, contact his primary care provider and follow-up for an outpatient ultrasound if his symptoms persist Quality:SDOH Health Related Social Needs: Health related social needs daily activities PFSH All Active Problems (Updated 12/22/24 @ 11:16 by Jeovany Elias MD) Leg pain (Acute) Cough (Acute) Heart palpitations (Acute) Jaw pain (Acute) Adverse reaction to food (Acute) Change in vision (Acute) Obstructive sleep apnea (Chronic) Metabolic dysfunction-associated fatty liver disease (MAFLD) (Acute) Fatty liver (Acute) IBS (irritable bowel syndrome) (Chronic) Obesity (Chronic) Migraine with aura (Acute) Testicle lump (Acute) Pes anserine bursitis (Acute) Left-sided Flower's palsy (Acute) Opiate dependence, continuous (Acute) 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 Possible 2' Methadone, Clnzpm (?). Surg eval (+)/No further action. History of electrolyte imbalance (Acute) Neck pain on left side (Acute) with shoulder, upper back pain.. torticollis, radiating into left hip/leg Pulmonary nodule 1 cm or greater in diameter (Chronic) Therapeutic opioid induced constipation (Acute) Sphincter of Oddi dysfunction (Chronic) Abnormal CT scan, kidney (Acute) Intrahepatic bile duct dilation (Acute) Common bile duct dilatation (Chronic) Has been dilated for quite some time, now more-so. Normal LFTs. Known gallstones. Depression (Chronic) Elevated parathyroid hormone (Acute) Family history of coronary arteriosclerosis (Chronic) Father of MD at 50, mother had MD at 42 Severe anxiety with panic (Chronic) Medical History Multiple endocrine neoplasia type I CKD (chronic kidney disease) stage 2, GFR 60-89 ml/min GFR 64-65, with Hx FLORESITA and GFR < 45 Primary hyperparathyroidism Complex medical condition Serious electrolyte imbalances, with gynecomastia, possible MEN Dx, CKD and anemia with baseline anxiety and Hx PTSD. Hypocalcemia Anxiety Depression Hyperlipidemia Family history of multiple endocrine neoplasia, type 1 PTSD (post-traumatic stress disorder) Per pt. states no triggers at this time. Surgical History History of laparoscopic cholecystectomy (~11/2023) H/O parathyroidectomy Family History Mother Anxiety Asthma Depression Sister Anxiety Depression Father Cancer lung & stomach Depression Diabetes Hypertension MEN 1 (multiple endocrine neoplasia) Social History Smoking/Tobacco Use Status: Never Smoking risk assessment performed?: Yes Alcohol Intake: current Alcohol Intake frequency: holidays/special occasions only Alcohol type: beer Drug use: Current Sobriety Substance use type: former substance user, crack/cocaine, heroin and painkillers Details: stopped using substances for the past 4 years Adopted: No Caregiver/Support person: No Foster care: No Household members: none Housing: apartment Number of Children: 0 Communication Needs: None Education Level: high school Do you need help understanding health information?: Never 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 Pets and animals: Yes (Ally) Pets and animals: dog(s) Sexually active: No Do you think of yourself as: straight/heterosexual Current gender identity: male What is your relationship status?: How often do you talk on the phone with friends or family?: twice per week How often do you get together with friends or relatives?: never Do you belong to any clubs or organized social groups?: no Panel score (0-1 are the most socially isolated patients): 0 What type of physical activity do you participate in: walking Duration: 15-30 minutes/day Frequency: 5-6 times per week Maryam/Evangelical: Jewish Special maryam needs: No Seatbelt use: always Helmet use: Yes Helmet use: always 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
== END 2024-12-22 11:47 | disposition home or self-care (01) ==
PROVIDERS: Emergency Provider Emergency Medicine; PCP Family Medicine
DX: M79.661 Pain in right lower leg (principal); N18.2 Chronic kidney disease, stage 2 (mild); E78.5 Hyperlipidemia, unspecified; E89.2 Postprocedural hypoparathyroidism
CPT/HCPCS: 99283

== ENCOUNTER 2024-12-27 12:50 | Emergency (ER) | payer OTHER, SELFPAY ==
[2024-12-27 13:02] VITALS: BP 111/78; PULSE 103; RESP 20; TEMP 37.2; O2SAT 92
== END 2024-12-27 16:15 | disposition left against medical advice (07) ==
LOC: ER 13:46
PROVIDERS: PCP Family Medicine
DX: Z53.21 Procedure and treatment not carried out due to patient leaving prior to being seen by health care provider

== ENCOUNTER 2024-12-27 16:16 | Emergency (ER) | payer OTHER, SELFPAY ==
[2024-12-27] VITALS (11 sets, daily range): BP systolic 112–135; BP diastolic 68–98; PULSE 84–110; RESP 14–16; TEMP 37.2; O2SAT 90–97
--- NOTE | 2024-12-27 17:52 | W.ED.GENAD ---
Discharge Plan Disposition Patient Disposition: Home Condition: Stable Discharge Details Clinical Impression: Elevated blood uric acid level Primary Care Provider: Brendon Vivar ED Provider: Richy Oakes Home Meds and New Rx's Prescriptions: Continued gabapentin 300 mg capsule 300 mg PO BID Qty: 180 3RF omeprazole 40 mg capsule,delayed release(DR/EC) 40 mg PO DAILY Qty: 90 3RF lorazepam 1 mg tablet 1 mg PO DAILY PRN (Reason: anxiety) Qty: 10 0RF Rx Instructions: Use when considering ER visit clonazepam 1 mg tablet 1 mg PO BID Qty: 56 2RF cyclobenzaprine 10 mg tablet 10 mg PO TID PRN (Reason: muscle spasm) Qty: 30 3RF methadone 10 mg/5 mL solution 100 mg PO QAM calcitriol 0.5 mcg capsule 1 mcg PO .COMPLEX Qty: 270 3RF Rx Instructions: 1 mcg orally t2 tabs qam and 1 tab QHS; calcium carbonate [Tums] 200 mg calcium (500 mg) tablet,chewable 2,000 mg PO BID prochlorperazine maleate 5 mg tablet 5 mg PO TID PRN (Reason: acute nausea) Qty: 30 0RF polyethylene glycol 3350 17 gram powder in packet 17 g PO BID PRN magnesium gluconate 27 mg magnesium (500 mg) tablet 13.5 mg PO TID Qty: 60 3RF Discharge Instructions Instructions: Low Purine Diet Additional Instructions: You were seen in the emergency department for your possible gout, you have mildly elevated uric acid level, I think 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 Your tick panel is pending, your electrolytes are within normal limits. Please follow a low purine diet. We are going to treat this with [id number] Aleve or naproxen. For the first week minimum I want you to take 440 mg or 2 tablets twice per day, you can do this for 1 to 2 weeks, as your symptoms improve please reduce dose to 1 tab twice per day and take for a few days longer past symptom resolution. Please return for any emergent concerns. Referrals: Brendon Vivar DO [Primary Care Provider, Medicine] Discharge Data Discharge Date/Time-TO BE ENTERED AT DEPARTURE: 12/27/24 19:34 HPI General Date/Time Provider Initiated Documentation: 12/27/24 17:52. HPI Narrative: 29 year-old male presents to ED today by POV/ambulating with a chief complaint of muscle aches, feet, hands, wrists, ankles with onset yesterday- questioning if his electrolytes are off. Quality described as just generalized muscle aches and pain with movement, no radiation to redness/swelling, fever, lesions, numbness, chest pain, shortness of breath, abdominal pain, endorses mild nausea. Severity is described as mild to moderate. Palliating factors include nothing specific attempted. Provoking factors include nothing specific. Patient not anticoagulated. Related Data Home Medications ?Medication ?Instructions ?Recorded ?Confirmed calcium carbonate (Tums) 2,000 mg PO BID 02/02/23 12/27/24 methadone 10 mg/5 mL oral solution 100 mg PO QAM 06/12/23 12/27/24 prochlorperazine maleate 5 mg 5 mg PO TID PRN acute nausea #30 09/06/23 12/27/24 tablet tabs magnesium gluconate 27 mg 13.5 mg (1/2 x 27 mg magnesium 11/21/23 12/27/24 magnesium (500 mg) tablet (500 mg)) PO TID #60 tabs gabapentin 300 mg capsule 300 mg PO BID #180 caps 06/01/24 12/27/24 calcitriol 0.5 mcg capsule 1 mcg (2 x 0.5 mcg) PO .COMPLEX 06/29/24 12/27/24 #270 caps omeprazole 40 mg capsule,delayed 40 mg PO DAILY #90 caps 07/27/24 12/27/24 release polyethylene glycol 3350 17 gram 17 g PO BID PRN 10/15/24 12/27/24 oral powder packet lorazepam 1 mg tablet 1 mg PO DAILY PRN anxiety #10 tabs 10/19/24 12/27/24 clonazepam 1 mg tablet 1 mg PO BID #56 tabs 11/16/24 12/27/24 cyclobenzaprine 10 mg tablet 10 mg PO TID PRN muscle spasm #30 11/16/24 12/27/24 tabs Previous Rx's ?Medication ?Instructions ?Recorded prochlorperazine maleate 5 mg 5 mg PO TID PRN acute nausea #30 09/06/23 tablet tabs magnesium gluconate 27 mg 13.5 mg (1/2 x 27 mg magnesium 11/21/23 magnesium (500 mg) tablet (500 mg)) PO TID #60 tabs gabapentin 300 mg capsule 300 mg PO BID #180 caps 06/01/24 calcitriol 0.5 mcg capsule 1 mcg (2 x 0.5 mcg) PO .COMPLEX 06/29/24 #270 caps omeprazole 40 mg capsule,delayed 40 mg PO DAILY #90 caps 07/27/24 release lorazepam 1 mg tablet 1 mg PO DAILY PRN anxiety #10 tabs 10/19/24 clonazepam 1 mg tablet 1 mg PO BID #56 tabs 11/16/24 cyclobenzaprine 10 mg tablet 10 mg PO TID PRN muscle spasm #30 11/16/24 tabs Allergies Allergy/AdvReac Type Severity Reaction Status Date / Time codeine Allergy Intermediate pass out Verified 12/27/24 16:31 Penicillins Allergy Skin Rash Verified 12/27/24 16:31 marijuana (cannabis) AdvReac Severe Paranoia Verified 12/27/24 16:31 amoxicillin AdvReac Intermediate Nausea Verified 12/27/24 16:31 dextromethorphan (From AdvReac Intermediate got Verified 12/27/24 16:31 NyQuil) really hot and sweaty doxylamine (From NyQuil) AdvReac Intermediate got Verified 12/27/24 16:31 really hot and sweaty pseudoephedrine (From NyQuil) AdvReac Intermediate got Verified 12/27/24 16:31 really hot and sweaty General Stated Complaint: GenMedical ADRIANA: 3 Review of Systems All systems reviewed & are unremarkable except as noted in HPI and below Exam Narrative Exam Narrative: GENERAL APPEARANCE: Well-nourished, non-toxic, awake and alert, atraumatic, no acute distress. SKIN: Warm, pink, dry, intact, without rashes/lesions/ulcerations. HEAD: Normocephalic, atraumatic, normal hair distribution for gender/age. EYES: Normal conjunctiva, no exudates on lids/lashes. ENT: Nares patent, no circumoral cyanosis, no facial swelling NECK: Supple, trachea midline, painless cervical ROM. LUNGS/CHEST: Non-labored respirations, normal A/P diameter, symmetrical expansion, no chest wall deformity HEART (CV/PV): No peripheral edema, no JVD. ABDOMEN: Soft, non-distended, no guarding. MSK: Normal ROM, no swelling/deformity to bilateral UEs or LEs, moving all extremities without weakness, no cyanosis, spine midline without tenderness, normal curvature, no joint erythema or severe tenderness, no pain with passive ROM, no unilateral swelling NEURO: Mental Status AAOx4 - alert to person, place, time, events No facial droop, no forehead involvement. Motor: No focal weakness - strength 5/5 in bilateral UEs and LEs, proximal and distal, symmetric. Sensory: sensation intact to light touch globally. Gait normal: patient ambulated without ataxia into ED room. PSYCH: euthymic, cooperative, pleasant, appropriate speech Course Vital Signs Vital signs: Vital Signs Temperature 37.2 C 12/27/24 16:29 Pulse 110 H 12/27/24 16:29 Respiratory Rate 14 12/27/24 16:29 Blood Pressure 120/70 12/27/24 16:29 Pulse Oximetry 93 12/27/24 16:29 Temperature 37.2 C 12/27/24 16:29 Temperature Source Oral 12/27/24 16:29 Pulse 110 H 12/27/24 16:29 Respiratory Rate 14 12/27/24 16:29 Blood Pressure 120/70 12/27/24 16:29 Blood Pressure Position Sitting 12/27/24 16:29 Pulse Oximetry 93 12/27/24 16:29 Oxygen Delivery Method Room Air 12/27/24 16:29 Oxygen Flow Rate 0 12/27/24 16:29 Medical Decision Making This dictation utilizes [id number] dictation software and may contain unedited grammatical errors. 29 year-old male presents to ED today by POV/ambulating with a chief complaint of muscle aches, feet, hands, wrists, ankles with onset yesterday- questioning if his electrolytes are off. Quality described as just generalized muscle aches and pain with movement, no radiation to redness/swelling, fever, lesions, numbness, chest pain, shortness of breath, abdominal pain, endorses mild nausea. Severity is described as mild to moderate. Palliating factors include nothing specific attempted. Provoking factors include nothing specific. Patients' medical history: parathyroid disease- electrolyte abnormalities, CKD, sphincter of oddi dysfunction. Family and social history: Does eat deli meats and other purine rich foods each day, otherwise noncontributory. Pertinent exam findings / vital signs include no overt tenderness to muscles of legs of arms, no redness, no pain with passive ROM, no lymphadenitis, no lesions. Differential / pathologies of concern include electrolyte imbalance, muscle strains, gout, parathyroid disease, hyperammonemia, tick borne illness, rhabdomyolysis. Diagnostic studies of: -CBC, CMP, uric acid, phosphorus, magnesium, ammonia, creatine kinase, lipase, TSH, tick and Lyme panel. -all labs benign, stable chronic findings on CBC, save for elevated uric acid, consider gout Interventions of: -Empiric trial of relief with daily Aleve while awaiting PCP referral to rheum/ortho. 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 Findings not consistent with septic arthritis, trauma, electrolyte abnormality, rhabdomyolysis, kidney failure or liver failure. Disposition of Elevated Blood Uric Acid Level. Patient verbalized understanding of the plan and return to ED criteria and engaged in shared decision making. Medical Records Medical records reviewed: Yes I reviewed the patient's medical records. Lab Data Lab results reviewed: Yes I reviewed the patient's lab results. Labs: Laboratory Tests Range/Units 12/27/24 12/27/24 18:00 18:15 WBC (4.4-10.8) 10^3/uL 9.17 RBC (4.36-5.78) 10^6/uL 3.82 L Hgb (13.5-17.5) g/dL 10.1 L Hct (40.0-50.0) % 32.0 L MCV (80-95) fL 84 MCH (27.0-33.0) pg 26.4 L MCHC (32.0-36.0) % 31.6 L RDW (11.8-14.1) % 16.0 H Plt Count (130-400) 10^3/uL 390 MPV (8.0-11.0) fL 9.8 Immature Gran % % 0.4 Neutrophils % % 67.2 Lymphocytes % % 22.4 Monocytes % % 8.6 Eosinophils % % 1.2 Basophils % % 0.2 Nucleated RBC % (0.0-0.3) % 0.0 Absolute Neutrophils (1.2-6.7) 10^3/uL 6.16 Absolute Lymphocytes (1.2-3.4) 10^3/uL 2.05 Absolute Monocytes (0.1-0.8) 10^3/uL 0.79 Absolute Eosinophils (0.0-0.7) 10^3/uL 0.11 Absolute Basophils (0.0-0.2) 10^3/uL 0.02 Sodium (136-145) mmol/L 139 Potassium (3.5-5.1) mmol/L 4.2 Chloride (98-107) mmol/L 102 Carbon Dioxide (21.0-32.0) mmol/L 25.5 Anion Gap (3-11) mmol/L 11.5 H BUN (7-18) mg/dL 15 Creatinine (0.70-1.30) mg/dL 0.5 L Est GFR (CKD-EPI 2020) (mL/min/1.73m2) 139.85 Glucose (74-106) mg/dL 89 Uric Acid (3.5-7.2) mg/dL 8.8 H Calcium (8.5-10.1) mg/dL 9.2 Phosphorus (2.6-4.7) mg/dL 4.3 Magnesium (1.8-2.4) mg/dL 1.8 Total Bilirubin (0.2-1.0) mg/dL 0.6 AST (15-37) U/L 12 L ALT (16-63) U/L 28 Alkaline Phosphatase (46-116) U/L 82 Ammonia (11-32) umol/L 15 Creatine Kinase (39-308) U/L 123 Total Protein (6.4-8.2) g/dL 7.3 Albumin (3.4-5.0) g/dL 4.1 Lipase (<78) U/L 34 TSH (0.36-3.74) uIU/mL 1.00 Lyme Disease Antibody (Negative) Negative Quality:SDOH Health Related Social Needs: Health related social needs daily activities PFSH All Active Problems (Updated 12/27/24 @ 19:13 by ANDREW Coleman) Elevated blood uric acid level (Acute) Leg pain (Acute) Cough (Acute) Heart palpitations (Acute) Jaw pain (Acute) Adverse reaction to food (Acute) Change in vision (Acute) Obstructive sleep apnea (Chronic) Metabolic dysfunction-associated fatty liver disease (MAFLD) (Acute) Fatty liver (Acute) IBS (irritable bowel syndrome) (Chronic) Obesity (Chronic) Migraine with aura (Acute) Testicle lump (Acute) Pes anserine bursitis (Acute) Left-sided Flower's palsy (Acute) Opiate dependence, continuous (Acute) 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 Possible 2' Methadone, Clnzpm (?). Surg eval (+)/No further action. History of electrolyte imbalance (Acute) Neck pain on left side (Acute) with shoulder, upper back pain.. torticollis, radiating into left hip/leg Pulmonary nodule 1 cm or greater in diameter (Chronic) Therapeutic opioid induced constipation (Acute) Sphincter of Oddi dysfunction (Chronic) Abnormal CT scan, kidney (Acute) Intrahepatic bile duct dilation (Acute) Common bile duct dilatation (Chronic) Has been dilated for quite some time, now more-so. Normal LFTs. Known gallstones. Depression (Chronic) Elevated parathyroid hormone (Acute) Family history of coronary arteriosclerosis (Chronic) Father of SC at 50, mother had SC at 42 Severe anxiety with panic (Chronic) Medical History Multiple endocrine neoplasia type I CKD (chronic kidney disease) stage 2, GFR 60-89 ml/min GFR 64-65, with Hx FLORESITA and GFR < 45 Primary hyperparathyroidism Complex medical condition Serious electrolyte imbalances, with gynecomastia, possible MEN Dx, CKD and anemia with baseline anxiety and Hx PTSD. Hypocalcemia Anxiety Depression Hyperlipidemia Family history of multiple endocrine neoplasia, type 1 PTSD (post-traumatic stress disorder) Per pt. states no triggers at this time. Surgical History History of laparoscopic cholecystectomy (~11/2023) H/O parathyroidectomy Family History Mother Anxiety Asthma Depression Sister Anxiety Depression Father Cancer lung & stomach Depression Diabetes Hypertension MEN 1 (multiple endocrine neoplasia) Social History Smoking/Tobacco Use Status: Never Smoking risk assessment performed?: Yes Alcohol Intake: current Alcohol Intake frequency: holidays/special occasions only Alcohol type: beer Drug use: Current Sobriety Substance use type: former substance user, crack/cocaine, heroin and painkillers Details: stopped using substances for the past 4 years Adopted: No Caregiver/Support person: No Foster care: No Household members: none Housing: apartment Number of Children: 0 Communication Needs: None Education Level: high school Do you need help understanding health information?: Never 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 [employer] Pets and animals: Yes (Ally) Pets and animals: dog(s) Sexually active: No Do you think of yourself as: straight/heterosexual Current gender identity: male What is your relationship status?: How often do you talk on the phone with friends or family?: twice per week How often do you get together with friends or relatives?: never Do you belong to any clubs or organized social groups?: no Panel score (0-1 are the most socially isolated patients): 0 What type of physical activity do you participate in: walking Duration: 15-30 minutes/day Frequency: 5-6 times per week Maryam/Nondenominational: Spiritism Special maryam needs: No Seatbelt use: always Helmet use: Yes Helmet use: always Drive intox or ride w/intox drive away driver: No Do you feel safe at home: Yes Do you feel safe in your relationship?: Yes
[2024-12-27 18:13] LABS: Abs Immature Grans 0.04 10^3/uL (0.0-0.06); HCT 32.0 % (40.0-50.0); HGB 10.1 g/dL (13.5-17.5); Immature Grans % 0.4 %; MCH 26.4 pg (27.0-33.0); MCHC 31.6 % (32.0-36.0); MCV 84 fL (80-95); MPV 9.8 fL (8.0-11.0); Platelet Count 390 10^3/uL (130-400); RBC 3.82 10^6/uL (4.36-5.78); RDW 16.0 % (11.8-14.1); RDW-SD 48.5 fL; WBC 9.17 10^3/uL (4.4-10.8)
[2024-12-27 18:36] LABS: Creatine Kinase 123 U/L (39-308); TSH (W/Ref FT4) 1.00 uIU/mL (0.36-3.74); Uric Acid 8.8 mg/dL (3.5-7.2)
[2024-12-27 18:38] LABS: Ammonia 15 umol/L (11-32)
[2024-12-27 18:38] LABS: ALT 28 U/L (16-63); AST 12 U/L (15-37); Albumin 4.1 g/dL (3.4-5.0); Alkaline Phosphatase 82 U/L (46-116); Anion Gap 11.5 mmol/L (3-11); BUN 15 mg/dL (7-18); Bilirubin, Total 0.6 mg/dL (0.2-1.0); CO2 25.5 mmol/L (21.0-32.0); Calcium 9.2 mg/dL (8.5-10.1); Chloride 102 mmol/L (98-107); Estimated GFR 139.85 (mL/min/1.73m2); Glucose 89 mg/dL (74-106); Lipase 34 U/L (<78); Magnesium 1.8 mg/dL (1.8-2.4); Potassium 4.2 mmol/L (3.5-5.1); Sodium 139 mmol/L (136-145); Total Protein 7.3 g/dL (6.4-8.2)
[2024-12-29 10:43] LABS: Lyme Ab w Rflx to Lyme Confirm Negative (Negative)
[2024-12-31 15:26] LABS: B. miyamotoi PCR Negative (Negative); Babesia divergens/MO-1 Negative (Negative); Ehrlichia muris eauclairensis Negative (Negative)
== END 2024-12-27 19:34 | disposition home or self-care (01) ==
PROVIDERS: Emergency Provider Physician Assistant; PCP Family Medicine
DX: R25.2 Cramp and spasm (principal); E79.0 Hyperuricemia without signs of inflammatory arthritis and tophaceous disease
CPT/HCPCS: 99283 ×2; 80053; 82550; 83690; 87798; 82140; 83735; 84100; 84443; 84550; 85025; 86618

== ENCOUNTER 2025-01-01 20:59 | Emergency (ER) | payer MEDICAID, SELFPAY ==
[2025-01-01 21:02] VITALS: BP 151/72; PULSE 93; RESP 20; TEMP 37; O2SAT 98
--- NOTE | 2025-01-01 21:08 | W.ED.GENAD ---
Discharge Plan Disposition Patient Disposition: Home Condition: Stable Discharge Details Clinical Impression: Dysphagia Primary Care Provider: Brendon Vivar ED Provider: Richy Oakes Home Meds and New Rx's Prescriptions: Continued gabapentin 300 mg capsule 300 mg PO BID Qty: 180 3RF omeprazole 40 mg capsule,delayed release(DR/EC) 40 mg PO DAILY Qty: 90 3RF lorazepam 1 mg tablet 1 mg PO DAILY PRN (Reason: anxiety) Qty: 10 0RF Rx Instructions: Use when considering ER visit clonazepam 1 mg tablet 1 mg PO BID Qty: 56 2RF cyclobenzaprine 10 mg tablet 10 mg PO TID PRN (Reason: muscle spasm) Qty: 30 3RF methadone 10 mg/5 mL solution 100 mg PO QAM calcitriol 0.5 mcg capsule 1 mcg PO .COMPLEX Qty: 270 3RF Rx Instructions: 1 mcg orally t2 tabs qam and 1 tab QHS; calcium carbonate [Tums] 200 mg calcium (500 mg) tablet,chewable 2,000 mg PO BID prochlorperazine maleate 5 mg tablet 5 mg PO TID PRN (Reason: acute nausea) Qty: 30 0RF polyethylene glycol 3350 17 gram powder in packet 17 g PO BID PRN magnesium gluconate 27 mg magnesium (500 mg) tablet 13.5 mg PO TID Qty: 60 3RF Discharge Instructions Instructions: Dysphagia, Thickening Liquids for Dysphagia Diet Additional Instructions: You were seen in the emergency department for your foreign body sensation of esophagus, there is no associated abnormality seen onmy read of your CT of your neck and chest- you opted for discharge prior to radiologist review as you felt whatever FB you sensed had cleared completely and began feeling much improved, I am unsure what is causing your esophageal discomfort I am recommending following up outpatient with general surgery for an upper endoscopy, until then use thickened liquids and soft foods. Referrals: Brendon Vivar DO [Primary Care Provider, Medicine] Discharge Data Discharge Date/Time-TO BE ENTERED AT DEPARTURE: 01/01/25 23:24 HPI General Date/Time Provider Initiated Documentation: 01/01/25 21:07. HPI Narrative: 29 year-old male presents to ED today by POV/ambulating with a chief complaint of dysphagia, severe R sided hypopharyngeal pain with onset after taking his nighttime meds, feels like a pill is stuck in a crevice or pouch just above his R proximal collar bone. Quality described as burning sensation, very painful to swallow, no radiation to active vomiting or nausea, is able to swallow, denies chest pain, fever, has been drinking fluids after onset of symptoms. Severity is described as moderate to severe. Palliating factors include nothing specific. Provoking factors include any swallowing. Events leading up to the incident/Associated Symptoms: Patient was recently empirically diagnosed with elevated uric acid level and was recommended to follow-up with orthopedics and is on daily NSAIDs. Patient not anticoagulated. Related Data Home Medications ?Medication ?Instructions ?Recorded ?Confirmed calcium carbonate (Tums) 2,000 mg PO BID 02/02/23 01/01/25 methadone 10 mg/5 mL oral solution 100 mg PO QAM 06/12/23 01/01/25 prochlorperazine maleate 5 mg 5 mg PO TID PRN acute nausea #30 09/06/23 01/01/25 tablet tabs magnesium gluconate 27 mg 13.5 mg (1/2 x 27 mg magnesium 11/21/23 01/01/25 magnesium (500 mg) tablet (500 mg)) PO TID #60 tabs gabapentin 300 mg capsule 300 mg PO BID #180 caps 06/01/24 01/01/25 calcitriol 0.5 mcg capsule 1 mcg (2 x 0.5 mcg) PO .COMPLEX 06/29/24 01/01/25 #270 caps omeprazole 40 mg capsule,delayed 40 mg PO DAILY #90 caps 07/27/24 01/01/25 release polyethylene glycol 3350 17 gram 17 g PO BID PRN 10/15/24 01/01/25 oral powder packet lorazepam 1 mg tablet 1 mg PO DAILY PRN anxiety #10 tabs 10/19/24 01/01/25 clonazepam 1 mg tablet 1 mg PO BID #56 tabs 11/16/24 01/01/25 cyclobenzaprine 10 mg tablet 10 mg PO TID PRN muscle spasm #30 11/16/24 01/01/25 tabs Previous Rx's ?Medication ?Instructions ?Recorded prochlorperazine maleate 5 mg 5 mg PO TID PRN acute nausea #30 09/06/23 tablet tabs magnesium gluconate 27 mg 13.5 mg (1/2 x 27 mg magnesium 11/21/23 magnesium (500 mg) tablet (500 mg)) PO TID #60 tabs gabapentin 300 mg capsule 300 mg PO BID #180 caps 06/01/24 calcitriol 0.5 mcg capsule 1 mcg (2 x 0.5 mcg) PO .COMPLEX 06/29/24 #270 caps omeprazole 40 mg capsule,delayed 40 mg PO DAILY #90 caps 07/27/24 release lorazepam 1 mg tablet 1 mg PO DAILY PRN anxiety #10 tabs 10/19/24 clonazepam 1 mg tablet 1 mg PO BID #56 tabs 11/16/24 cyclobenzaprine 10 mg tablet 10 mg PO TID PRN muscle spasm #30 11/16/24 tabs Allergies Allergy/AdvReac Type Severity Reaction Status Date / Time codeine Allergy Intermediate pass out Verified 01/01/25 21:04 Penicillins Allergy Skin Rash Verified 01/01/25 21:04 marijuana (cannabis) AdvReac Severe Paranoia Verified 01/01/25 21:04 amoxicillin AdvReac Intermediate Nausea Verified 01/01/25 21:04 dextromethorphan (From AdvReac Intermediate got Verified 01/01/25 21:04 NyQuil) really hot and sweaty doxylamine (From NyQuil) AdvReac Intermediate got Verified 01/01/25 21:04 really hot and sweaty pseudoephedrine (From NyQuil) AdvReac Intermediate got Verified 01/01/25 21:04 really hot and sweaty General Stated Complaint: ThroatFB ADRIANA: 3 Review of Systems All systems reviewed & are unremarkable except as noted in HPI and below Exam Narrative Exam Narrative: GENERAL APPEARANCE: Well-nourished, non-toxic, awake and alert, atraumatic, mild acute distress. SKIN: Warm, pink, diaphoretic, intact, without rashes/lesions/ulcerations. HEAD: Normocephalic, atraumatic, normal hair distribution for gender/age. EYES: Normal conjunctiva, no exudates on lids/lashes. ENT: Nares patent, no circumoral cyanosis, no facial swelling, vocal change with mild hoarseness, managing secretions, no trismus NECK: Supple, trachea midline, painless cervical ROM, some subcutaneous crepitus palpated where he localizes pain in the R neck just above sterno-manubrial border LUNGS/CHEST: Non-labored respirations, normal A/P diameter, symmetrical expansion, no chest wall deformity HEART (CV/PV): No peripheral edema, no JVD. ABDOMEN: Soft, non-distended, no guarding. MSK: Normal ROM, no swelling/deformity to bilateral UEs or LEs, moving all extremities without weakness, no cyanosis, spine midline without tenderness, normal curvature. NEURO: Mental Status AAOx4 - alert to person, place, time, events No facial droop, no forehead involvement. Motor: No focal weakness - strength 5/5 in bilateral UEs and LEs, proximal and distal, symmetric. Sensory: sensation intact to light touch globally. Gait normal: patient ambulated without ataxia into ED room. PSYCH: euthymic, cooperative, pleasant, appropriate speech Course Vital Signs Vital signs: Vital Signs Temperature 37.0 C 01/01/25 21:02 Pulse 93 H 01/01/25 21:02 Respiratory Rate 20 01/01/25 21:02 Blood Pressure 151/72 H 01/01/25 21:02 Pulse Oximetry 98 01/01/25 21:02 Temperature 37.0 C 01/01/25 21:02 Temperature Source Oral 01/01/25 21:02 Pulse 93 H 01/01/25 21:02 Respiratory Rate 20 01/01/25 21:02 Respiratory Effort Normal 01/01/25 21:05 Blood Pressure 151/72 H 01/01/25 21:02 Blood Pressure Position Sitting 01/01/25 21:02 Pulse Oximetry 98 01/01/25 21:02 Oxygen Delivery Method Room Air 01/01/25 21:02 Oxygen Flow Rate 0 01/01/25 21:02 Pain Level 5 01/01/25 21:02 Medical Decision Making This dictation utilizes [id number] dictation software and may contain unedited grammatical errors. 29 year-old male presents to ED today by POV/ambulating with a chief complaint of dysphagia, severe R sided hypopharyngeal pain with onset after taking his nighttime meds, feels like a pill is stuck in a crevice or pouch just above his R proximal collar bone. Quality described as burning sensation, very painful to swallow, no radiation to active vomiting or nausea, is able to swallow, denies chest pain, fever, has been drinking fluids after onset of symptoms. Severity is described as moderate to severe. Palliating factors include nothing specific. Provoking factors include any swallowing. Events leading up to the incident/Associated Symptoms: Patient was recently empirically diagnosed with elevated uric acid level and was recommended to follow-up with orthopedics and is on daily NSAIDs. Patients' medical history: CKD, primary parathyroidism, electrolyte abnormalities, recent elevated uric acid level, fatty liver, IBS, sphincter of Oddi dysfunction, inflammatory arthritis, severe anxiety. Family and social history: Noncontributory, eating a normal diet-trying to cut back on purines. Pertinent exam findings / vital signs include some palpable crepitus at the area he localizes pain to just above the proximal clavicle with palpation during swallowing, otherwise benign cardiopulmonary status, nontoxic and afebrile, minor vocal change of hoarseness. Differential / pathologies of concern include pill esophagitis, foreign body, Zenker's diverticulum, severe gastritis. Diagnostic studies of: - CT neck and chest with contrast - pending results at time of sign-out Interventions of: - EZ gas granules / aluminum hydroxide / viscous lidocaine GI cocktail - 2240 prior to him receiving viscous lido and alu-hydrox he felt complete relief and whatever was stuck there appears to be cleared. Opts for discharge without CT results, will follow-up with PCP and Gen Surg for outpatient EGD if desired. ED Course/Assessment/Plan: 29-year-old male well-known to the emergency department presents with severe hypopharyngeal pain during swallowing, happened after he took his nighttime pills, I do question pill esophagitis versus possible esophageal abrasion or severe gastritis as he was recently diagnosed with elevated uric acid level I have him on daily Aleve, he has a history of complex GI issues I did feel some subcutaneous crepitus in the area a localized pain to just above the proximal right clavicle with swallowing, CT neck and chest with contrast but he is tolerating swallowing otherwise. CT is negative for any FB- he did state he was able to get up a small white pellett of food, possibly pill or other item like tonsillith, felt completely better and was amenable to discharge. Disposition of Dysphagia. Patient verbalized understanding of the plan and return to ED criteria and engaged in shared decision making. Medical Records Medical records reviewed: Yes I reviewed the patient's medical records. Imaging Data Radiologic Study: Attestation: I personally reviewed and interpreted this imaging study as follows: Imaging: CT Scan My impression: No visible abnormality by my read, no airway narrowing, no FB visualized. Radiologist's impression: Exam: CT Neck With Contrast Exam date and time: 01/01/2025 9:21 PM Age: 29 years old Clinical indication: Other: Esophageal fb sensation TECHNIQUE: Imaging protocol: Computed tomography of the neck with contrast. 3D rendering (Not supervised by radiologist): MIP and/or 3D reconstructed images were created by the technologist. Contrast material: 350; Contrast volume: 100 ml; Contrast route: INTRAVENOUS (IV); COMPARISON: CT CHEST PE CTA 02/17/2024 12:52 AM FINDINGS: Paranasal sinuses: There is mild mucoperiosteal thickening at the floor of the right maxillary sinus. Otherwise, the paranasal sinuses appear clear. Mastoid air cells: The mastoid air cells appear well-aerated. Auditory system: The middle ear cavities appear clear. Salivary glands: The submandibular salivary glands and parotid glands appear normal. Teeth: The patient is edentulous, markedly unusual in a 29-year-old patient. Pharynx: There is mild circumferential mucosal thickening in the oropharynx and hypopharynx. Although nonspecific, acute pharyngitis could produce this appearance. Direct inspection is recommended. Larynx: The structures of the larynx appear symmetric. The epiglottis appears normal. Thyroid: There are surgical clips adjacent to the thyroid gland suggesting prior thyroid surgery. Correlation with surgical history is recommended. The thyroid gland otherwise appears normal. Trachea: The trachea appears normal. Lungs: The lung apices appear clear. Esophagus: The cervical esophageal segment appears normal. No foreign body is seen. Lymph nodes: There are symmetrically distributed small cervical chain lymph nodes, nonspecific. Bones/joints: No acute cervical fracture or malalignment is demonstrated. Soft tissues: No retropharyngeal fluid collection is seen. Other findings: No gross cervical mass or fluid collection is seen. IMPRESSION: 1. No radiopaque foreign body demonstrated in the pharynx, cervical esophageal segment, or trachea. 2. Mild circumferential mucosal thickening in the oropharynx and hypopharynx. Although nonspecific, acute pharyngitis could produce this appearance. Direct inspection is recommended. PROCEDURE INFORMATION: Exam: CT Chest With Contrast; Diagnostic Exam date and time: 01/01/2025 9:21 PM Age: 29 years old Clinical indication: Other: Esophageal fb sensation TECHNIQUE: Imaging protocol: Diagnostic computed tomography of the chest with contrast. 3D rendering (Not supervised by radiologist): MIP and/or 3D reconstructed images were created by the technologist. Contrast material: 350; Contrast volume: 100 ml; Contrast route: INTRAVENOUS (IV); COMPARISON: CT CHEST PE CTA 02/17/2024 12:52 AM FINDINGS: Limitations: Extensive streak artifact, created at least in part by arm positioning. Lungs: No pulmonary consolidation. Pleural spaces: No pleural effusion or pneumothorax. Heart: Normal-sized heart. Esophagus: Normal-appearing thoracic esophagus. No radiopaque foreign body demonstrated. Lymph nodes: No pathologically enlarged mediastinal or hilar lymph nodes. Vasculature: No thoracic aortic aneurysm. Gallbladder and biliary ducts: Prior cholecystectomy. Bones/joints: Lower ribs partially excluded from view and incompletely evaluated. Otherwise, no acute fracture seen among the bones of the chest. Soft tissues: Moderate symmetric gynecomastia, nonspecific but commonly seen in the setting of chronic liver disease. IMPRESSION: 1. No active disease is seen in the chest. 2. No foreign body seen in the thoracic esophagus or tracheobronchial tree. Dictated and Authenticated by: Norbert Fields MD. Quality:SDOH Health Related Social Needs: Health related social needs daily activities PFSH All Active Problems (Updated 01/01/25 @ 21:58 by ANDREW Coleman) Dysphagia (Acute) Elevated blood uric acid level (Acute) Leg pain (Acute) Cough (Acute) Heart palpitations (Acute) Jaw pain (Acute) Adverse reaction to food (Acute) Obstructive sleep apnea (Chronic) Metabolic dysfunction-associated fatty liver disease (MAFLD) (Acute) Fatty liver (Acute) IBS (irritable bowel syndrome) (Chronic) Obesity (Chronic) Migraine with aura (Acute) Testicle lump (Acute) Pes anserine bursitis (Acute) Left-sided Flower's palsy (Acute) Opiate dependence, continuous (Acute) 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 Possible 2' Methadone, Clnzpm (?). Surg eval (+)/No further action. History of electrolyte imbalance (Acute) Neck pain on left side (Acute) with shoulder, upper back pain.. torticollis, radiating into left hip/leg Pulmonary nodule 1 cm or greater in diameter (Chronic) Therapeutic opioid induced constipation (Acute) Sphincter of Oddi dysfunction (Chronic) Abnormal CT scan, kidney (Acute) Intrahepatic bile duct dilation (Acute) Common bile duct dilatation (Chronic) Has been dilated for quite some time, now more-so. Normal LFTs. Known gallstones. Depression (Chronic) Elevated parathyroid hormone (Acute) Family history of coronary arteriosclerosis (Chronic) Father of CO at 50, mother had CO at 42 Severe anxiety with panic (Chronic) Medical History Multiple endocrine neoplasia type I CKD (chronic kidney disease) stage 2, GFR 60-89 ml/min GFR 64-65, with Hx FLORESITA and GFR < 45 Primary hyperparathyroidism Complex medical condition Serious electrolyte imbalances, with gynecomastia, possible MEN Dx, CKD and anemia with baseline anxiety and Hx PTSD. Hypocalcemia Anxiety Depression Hyperlipidemia Family history of multiple endocrine neoplasia, type 1 PTSD (post-traumatic stress disorder) Per pt. states no triggers at this time. Surgical History History of laparoscopic cholecystectomy (~11/2023) H/O parathyroidectomy Family History Mother Anxiety Asthma Depression Sister Anxiety Depression Father Cancer lung & stomach Depression Diabetes Hypertension MEN 1 (multiple endocrine neoplasia) Social History Smoking/Tobacco Use Status: Never Smoking risk assessment performed?: Yes Alcohol Intake: current Alcohol Intake frequency: holidays/special occasions only Alcohol type: beer Drug use: Current Sobriety Substance use type: former substance user, crack/cocaine, heroin and painkillers Details: stopped using substances for the past 4 years Adopted: No Caregiver/Support person: No Foster care: No Household members: none Housing: apartment Number of Children: 0 Communication Needs: None Education Level: high school Do you need help understanding health information?: Never current occupation: [employer] Pets and animals: Yes (Ally) Pets and animals: dog(s) Sexually active: No Do you think of yourself as: straight/heterosexual Current gender identity: male What is your relationship status?: How often do you talk on the phone with friends or family?: twice per week How often do you get together with friends or relatives?: never Do you belong to any clubs or organized social groups?: no Panel score (0-1 are the most socially isolated patients): 0 What type of physical activity do you participate in: walking Duration: 15-30 minutes/day Frequency: 5-6 times per week Maryam/Gnosticist: Holiness Special maryam needs: No Seatbelt use: always Helmet use: Yes Helmet use: always Drive intox or ride w/intox 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
--- NOTE | 2025-01-01 21:12 | DI.CT_ITS ---
Exam(s) CT NECK CHEST W EXAM: CT NECK CHEST W CLINICAL HISTORY: esophageal FB sensation TECHNIQUE: Imaging Protocol: Axial computed tomography images with coronal and sagittal reformatted images were created and reviewed. Computer aided detection (CAD) was utilized. CONTRAST MATERIAL: Intravenous: Omnipaque 350Contrast volume:100 mL. COMPARISON: CT CT CHEST PE CTA from 02/17/[address] ABDOMEN PELVIS W from 10/02/2024 FINDINGS: Tracheobronchial tree: Patent where visualized. No evidence of bronchiectasis. There is no foreign body seen in the airway. Pulmonary parenchyma: No consolidation or dominant measurable mass. No architectural distortion. Mediastinum and Jessika: No dominant adenopathy or fluid collection. The esophagus is unremarkable. No radiopaque foreign body seen in the esophagus. Thyroid gland: Unremarkable. Pleura: No effusion or pneumothorax. Heart: The heart is not dilated. No coronary artery calcifications are seen. No pericardial effusion. Aorta: Thoracic aorta non-dilated. There is a normal configuration of the thoracic aorta and the great vessels. Pulmonary arteries: Due to the timing of the bolus, the enhancement of the pulmonary arteries is inadequate for evaluation of pulmonary emboli. Upper abdomen: There does appear to be fatty infiltration of the liver. There is a stable cyst in the upper pole of the left kidney. No follow-up is recommended. Status post cholecystectomy. Lymph nodes: Within normal limits. Bones: Within normal limits for the patient's age. Soft tissues: Bilateral gynecomastia. Visualized intracranial structures: Within normal limits. Orbits and orbital soft tissues: Within normal limits. Visualized paranasal sinuses: There is a mucous retention cyst or polyp in the right maxillary sinus. The remaining visualized paranasal sinuses and mastoid air cells are clear. Pharynx: There is mild asymmetric enlargement of the left tonsillar region which may represent a tonsillitis. Please correlate clinically. No focal fluid collection is seen to suggest an abscess. Larynx: Within normal limits. Retropharyngeal space: Within normal limits. Parotids/submandibular: Within normal limits. Thyroid gland: Within normal limits. Lymphadenopathy: There are mildly prominent lymph nodes seen in the neck bilaterally which may be reactive. The largest lymph node measures 1.3 cm. Trachea: Within normal limits. No radiopaque foreign body is seen. Lung apices: Within normal limits. Bones: Within normal limits for the patient's age. Carotids/Jugular: Within normal limits. Soft tissues: Within normal limits. IMPRESSION: 1. No acute pulmonary process. 2. No foreign bodies are seen in the airway or esophagus. 3. Mild asymmetric enlargement of the left tonsillar region which may represent a tonsillitis. Please correlate clinically. No abscess is seen. 4. The preliminary [facility] report was reviewed. RADIATION DOSE DELIVERED: 993.85mGy.cm Total DLP DATA REPOSITORY: All CT scans at this facility are submitted to the National Radiology Data Registry (NRDR) Dose Index Registry (DIR) with the [employer] ([employer]). RADIATION OPTIMIZATION: All CT scans at this facility use at least one of these dose optimization techniques: automated exposure control; mA and/or kV adjustment per patient size (includes targeted exams where dose is matched to clinical indication); or iterative reconstruction.
[2025-01-01] MEDS: Normal Saline - Diluent 50 ML VIAL IJ (21:44)
[2025-01-01] MEDS: Omnipaque 350 MG/ML 100 ML BTL IJ (21:45)
[2025-01-01] MEDS: Simethicone/Sod Bicarb/Cit Ac, 4 gram PACKET 1 PACKET PO (21:53)
--- NOTE | 2025-01-01 23:06 | DI.VRAD_ITS ---
PROCEDURE INFORMATION: Exam: CT Neck With Contrast Exam date and time: 01/01/2025 9:21 PM Age: 29 years old Clinical indication: Other: Esophageal fb sensation TECHNIQUE: Imaging protocol: Computed tomography of the neck with contrast. 3D rendering (Not supervised by radiologist): MIP and/or 3D reconstructed images were created by the technologist. Contrast material: 350; Contrast volume: 100 ml; Contrast route: INTRAVENOUS (IV); COMPARISON: CT CHEST PE CTA 02/17/2024 12:52 AM FINDINGS: Paranasal sinuses: There is mild mucoperiosteal thickening at the floor of the right maxillary sinus. Otherwise, the paranasal sinuses appear clear. Mastoid air cells: The mastoid air cells appear well-aerated. Auditory system: The middle ear cavities appear clear. Salivary glands: The submandibular salivary glands and parotid glands appear normal. Teeth: The patient is edentulous, markedly unusual in a 29-year-old patient. Pharynx: There is mild circumferential mucosal thickening in the oropharynx and hypopharynx. Although nonspecific, acute pharyngitis could produce this appearance. Direct inspection is recommended. Larynx: The structures of the larynx appear symmetric. The epiglottis appears normal. Thyroid: There are surgical clips adjacent to the thyroid gland suggesting prior thyroid surgery. Correlation with surgical history is recommended. The thyroid gland otherwise appears normal. Trachea: The trachea appears normal. Lungs: The lung apices appear clear. Esophagus: The cervical esophageal segment appears normal. No foreign body is seen. Lymph nodes: There are symmetrically distributed small cervical chain lymph nodes, nonspecific. Bones/joints: No acute cervical fracture or malalignment is demonstrated. Soft tissues: No retropharyngeal fluid collection is seen. Other findings: No gross cervical mass or fluid collection is seen. IMPRESSION: 1. No radiopaque foreign body demonstrated in the pharynx, cervical esophageal segment, or trachea. 2. Mild circumferential mucosal thickening in the oropharynx and hypopharynx. Although nonspecific, acute pharyngitis could produce this appearance. Direct inspection is recommended. PROCEDURE INFORMATION: Exam: CT Chest With Contrast; Diagnostic Exam date and time: 01/01/2025 9:21 PM Age: 29 years old Clinical indication: Other: Esophageal fb sensation TECHNIQUE: Imaging protocol: Diagnostic computed tomography of the chest with contrast. 3D rendering (Not supervised by radiologist): MIP and/or 3D reconstructed images were created by the technologist. Contrast material: 350; Contrast volume: 100 ml; Contrast route: INTRAVENOUS (IV); COMPARISON: CT CHEST PE CTA 02/17/2024 12:52 AM FINDINGS: Limitations: Extensive streak artifact, created at least in part by arm positioning. Lungs: No pulmonary consolidation. Pleural spaces: No pleural effusion or pneumothorax. Heart: Normal-sized heart. Esophagus: Normal-appearing thoracic esophagus. No radiopaque foreign body demonstrated. Lymph nodes: No pathologically enlarged mediastinal or hilar lymph nodes. Vasculature: No thoracic aortic aneurysm. Gallbladder and biliary ducts: Prior cholecystectomy. Bones/joints: Lower ribs partially excluded from view and incompletely evaluated. Otherwise, no acute fracture seen among the bones of the chest. Soft tissues: Moderate symmetric gynecomastia, nonspecific but commonly seen in the setting of chronic liver disease. IMPRESSION: 1. No active disease is seen in the chest. 2. No foreign body seen in the thoracic esophagus or tracheobronchial tree. Dictated and Authenticated by: Norbert Fields MD. Orderin hCamp Lockhart MD
== END 2025-01-01 23:24 | disposition home or self-care (01) ==
PROVIDERS: Emergency Provider Physician Assistant; PCP Family Medicine
DX: R13.10 Dysphagia, unspecified (principal); R07.0 Pain in throat
CPT/HCPCS: 99283; 99285; 70491; 71260; J3490

== ENCOUNTER 2025-01-11 10:48 | Emergency (ER) | payer OTHER, SELFPAY ==
--- NOTE | 2025-01-11 10:45 | RT.EKG_ITS ---
APPROVED REPORT Exam: Resting ECG Reason for Exam: chest pain Patient Location: E HR:105 bpm ECG Measurements Heart Rate 105 AXIS OK 157 P 46 QRSd 96 QRS 23 QT 343 T 28 QTc 454 Conclusion Sinus tachycardia, rate 105, unchanged from priors No interval abnormalities No STEMI
[2025-01-11 10:56] VITALS: BP 142/81; PULSE 116; RESP 20; TEMP 37.4; O2SAT 94
--- NOTE | 2025-01-11 11:15 | W.ED.GENAD ---
Discharge Plan Disposition Patient Disposition: Home Condition: Stable Discharge Details Clinical Impression: Heart palpitations Primary Care Provider: Brendon Vivar ED Provider: Tere Adams Home Meds and New Rx's Prescriptions: No Action gabapentin 300 mg capsule 300 mg PO BID Qty: 180 3RF omeprazole 40 mg capsule,delayed release(DR/EC) 40 mg PO DAILY Qty: 90 3RF lorazepam 1 mg tablet 1 mg PO DAILY PRN (Reason: anxiety) Qty: 10 0RF Rx Instructions: Use when considering ER visit clonazepam 1 mg tablet 1 mg PO BID Qty: 56 2RF cyclobenzaprine 10 mg tablet 10 mg PO TID PRN (Reason: muscle spasm) Qty: 30 3RF methadone 10 mg/5 mL solution 100 mg PO QAM calcitriol 0.5 mcg capsule 1 mcg PO .COMPLEX Qty: 270 3RF Rx Instructions: 1 mcg orally t2 tabs qam and 1 tab QHS; calcium carbonate [Tums] 200 mg calcium (500 mg) tablet,chewable 2,000 mg PO BID prochlorperazine maleate 5 mg tablet 5 mg PO TID PRN (Reason: acute nausea) Qty: 30 0RF polyethylene glycol 3350 17 gram powder in packet 17 g PO BID PRN magnesium gluconate 27 mg magnesium (500 mg) tablet 13.5 mg PO TID Qty: 60 3RF Discharge Instructions Instructions: Palpitations ED Additional Instructions: You were seen in the emergency department today for evaluation of palpitations and extremity tingling. You had your electrolytes checked and they are within normal limits. It is safe for you to return to normal dosing of your supplements. Please maintain good hydration as it is possible that you will become slightly dehydrated. You had an EKG that was reassuring. Please follow-up with your primary care provider in the next few days to discuss this visit and any symptoms that change, worsen, or persist. Thank you for allowing us to be part of your care. Stand Alone Forms: Work Release Discharge Data Discharge Date/Time-TO BE ENTERED AT DEPARTURE: 01/11/25 12:50 HPI General Mode of arrival: ambulatory. Date/Time Provider Initiated Documentation: 01/11/25 11:05. Limitations to Documentation: no limitations. Information obtained by: patient and old records reviewed. HPI Narrative: This is a 29-year-old male patient with a history of MEN, with a known history of of hypocalcemia and hypomagnesemia, presenting for evaluation of electrolyte derangements. The patient reports that he was unable to fill his prescriptions for calcium and magnesium last week, went several days without this medication. He got his prescriptions on Friday and has been doubling up, but is experiencing symptoms of palpitations, hand tingling. He states that he feels this way often when his electrolytes are low. He has been able to tolerate oral intake, denies shortness of breath, and has otherwise been in his normal state of health. Related Data Home Medications ?Medication ?Instructions ?Recorded ?Confirmed calcium carbonate (Tums) 2,000 mg PO BID 02/02/23 01/11/25 methadone 10 mg/5 mL oral solution 100 mg PO QAM 06/12/23 01/11/25 prochlorperazine maleate 5 mg 5 mg PO TID PRN acute nausea #30 09/06/23 01/11/25 tablet tabs magnesium gluconate 27 mg 13.5 mg (1/2 x 27 mg magnesium 11/21/23 01/11/25 magnesium (500 mg) tablet (500 mg)) PO TID #60 tabs gabapentin 300 mg capsule 300 mg PO BID #180 caps 06/01/24 01/11/25 calcitriol 0.5 mcg capsule 1 mcg (2 x 0.5 mcg) PO .COMPLEX 06/29/24 01/11/25 #270 caps omeprazole 40 mg capsule,delayed 40 mg PO DAILY #90 caps 07/27/24 01/11/25 release polyethylene glycol 3350 17 gram 17 g PO BID PRN 10/15/24 01/11/25 oral powder packet lorazepam 1 mg tablet 1 mg PO DAILY PRN anxiety #10 tabs 10/19/24 01/11/25 clonazepam 1 mg tablet 1 mg PO BID #56 tabs 11/16/24 01/11/25 cyclobenzaprine 10 mg tablet 10 mg PO TID PRN muscle spasm #30 11/16/24 01/11/25 tabs Previous Rx's ?Medication ?Instructions ?Recorded prochlorperazine maleate 5 mg 5 mg PO TID PRN acute nausea #30 09/06/23 tablet tabs magnesium gluconate 27 mg 13.5 mg (1/2 x 27 mg magnesium 11/21/23 magnesium (500 mg) tablet (500 mg)) PO TID #60 tabs gabapentin 300 mg capsule 300 mg PO BID #180 caps 06/01/24 calcitriol 0.5 mcg capsule 1 mcg (2 x 0.5 mcg) PO .COMPLEX 06/29/24 #270 caps omeprazole 40 mg capsule,delayed 40 mg PO DAILY #90 caps 07/27/24 release lorazepam 1 mg tablet 1 mg PO DAILY PRN anxiety #10 tabs 10/19/24 clonazepam 1 mg tablet 1 mg PO BID #56 tabs 11/16/24 cyclobenzaprine 10 mg tablet 10 mg PO TID PRN muscle spasm #30 11/16/24 tabs Allergies Allergy/AdvReac Type Severity Reaction Status Date / Time codeine Allergy Intermediate pass out Verified 01/11/25 11:01 Penicillins Allergy Skin Rash Verified 01/11/25 11:01 marijuana (cannabis) AdvReac Severe Paranoia Verified 01/11/25 11:01 amoxicillin AdvReac Intermediate Nausea Verified 01/11/25 11:01 dextromethorphan (From AdvReac Intermediate got Verified 01/11/25 11:01 NyQuil) really hot and sweaty doxylamine (From NyQuil) AdvReac Intermediate got Verified 01/11/25 11:01 really hot and sweaty pseudoephedrine (From NyQuil) AdvReac Intermediate got Verified 01/11/25 11:01 really hot and sweaty General Stated Complaint: Palpitatns ADRIANA: 3 Exam Narrative Exam Narrative: Gen: Awake and alert, in no apparent distress HEENT: Non-icteric sclera Neck: Supple Lungs: No apparent respiratory distress, normal respiratory effort. Lung sounds clear and equal bilaterally CV: Appears well perfused, heart with regular rate and rhythm, strong distal pulses Abdomen: Non-distended MSK: Moves 4 extremities without apparent limitation in ROM. Trace bilateral peripheral edema, baseline per patient Skin: Visualized skin without rashes, cyanosis. Neuro: Normal Gait, no obvious focal deficits or facial asymmetry. Speaks in full, clear sentences. Psych: Appropriate for situation. Course Vital Signs Vital signs: Vital Signs Temperature 37.4 C 01/11/25 10:56 Pulse 116 H 01/11/25 10:56 Respiratory Rate 20 01/11/25 10:56 Blood Pressure 142/81 H 01/11/25 10:56 Pulse Oximetry 94 01/11/25 10:56 Temperature 37.4 C 01/11/25 10:56 Temperature Source Oral 01/11/25 10:56 Pulse 116 H 01/11/25 10:56 Respiratory Rate 20 01/11/25 10:56 Blood Pressure 142/81 H 01/11/25 10:56 Blood Pressure Position Sitting 01/11/25 10:56 Pulse Oximetry 94 01/11/25 10:56 Oxygen Delivery Method Room Air 01/11/25 10:56 Oxygen Flow Rate 0 01/11/25 10:56 Pain Level 4 01/11/25 10:56 Medical Decision Making This is a 29-year-old male patient presenting for evaluation for electrolyte check in the setting of missing medications. Differential includes but is not limited to metabolic derangements including hypomagnesemia, hypocalcemia, certainly consider dehydration, kidney injury. The patient is low cardiac risk and his symptoms are less concerning for ACS. Considered arrhythmia. The patient had a recent visit with a negative D-dimer, and I feel reassured against pulmonary embolism and other significant pulmonary abnormalities. We will obtain laboratory studies to include CBC, CMP, magnesium, and will provide the patient with oral fluids. I will obtain an EKG. -I reviewed the EKG, which shows a sinus tachycardia with a rate of 105, without significant interval abnormalities, ectopy, nor evidence of ischemia. No significant changes from priors. I independently interpreted the laboratory studies, which show no significant leukocytosis, stable anemia, and no thrombocytopenia. The chemistry panel is without evidence of electrolyte abnormality, new kidney dysfunction, or liver injury. I shared the findings with the patient, who feels reassured and states that he feels comfortable maintaining his hydration in the outpatient environment and continuing his home medications. I told him that given his normal laboratory states today he can return to his normal dosing and does not need to double up any longer. At this time, the patient has had a full medical evaluation and is safe for discharge to home. They are hemodynamically stable, ambulatory, and tolerating PO. They are understanding of the follow-up plan and return precautions. They left our facility without incident. Tere Adams MD Quality:SDOH Health Related Social Needs: Health related social needs daily activities PFSH All Active Problems (Updated 01/11/25 @ 12:49 by Tere Adams MD) Heart palpitations (Acute) Dysphagia (Acute) Elevated blood uric acid level (Acute) Leg pain (Acute) Cough (Acute) Obstructive sleep apnea (Chronic) Metabolic dysfunction-associated fatty liver disease (MAFLD) (Acute) Fatty liver (Acute) IBS (irritable bowel syndrome) (Chronic) Obesity (Chronic) Migraine with aura (Acute) Testicle lump (Acute) Pes anserine bursitis (Acute) Left-sided Flower's palsy (Acute) Opiate dependence, continuous (Acute) 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 Possible 2' Methadone, Clnzpm (?). Surg eval (+)/No further action. History of electrolyte imbalance (Acute) Neck pain on left side (Acute) with shoulder, upper back pain.. torticollis, radiating into left hip/leg Pulmonary nodule 1 cm or greater in diameter (Chronic) Therapeutic opioid induced constipation (Acute) Sphincter of Oddi dysfunction (Chronic) Abnormal CT scan, kidney (Acute) Intrahepatic bile duct dilation (Acute) Common bile duct dilatation (Chronic) Has been dilated for quite some time, now more-so. Normal LFTs. Known gallstones. Depression (Chronic) Elevated parathyroid hormone (Acute) Family history of coronary arteriosclerosis (Chronic) Father of AL at 50, mother had AL at 42 Severe anxiety with panic (Chronic) Medical History Multiple endocrine neoplasia type I CKD (chronic kidney disease) stage 2, GFR 60-89 ml/min GFR 64-65, with Hx FLORESITA and GFR < 45 Primary hyperparathyroidism Complex medical condition Serious electrolyte imbalances, with gynecomastia, possible MEN Dx, CKD and anemia with baseline anxiety and Hx PTSD. Hypocalcemia Anxiety Depression Hyperlipidemia Family history of multiple endocrine neoplasia, type 1 PTSD (post-traumatic stress disorder) Per pt. states no triggers at this time. Surgical History History of laparoscopic cholecystectomy (~11/2023) H/O parathyroidectomy Family History Mother Anxiety Asthma Depression Sister Anxiety Depression Father Cancer lung & stomach Depression Diabetes Hypertension MEN 1 (multiple endocrine neoplasia) Social History Smoking/Tobacco Use Status: Never Smoking risk assessment performed?: Yes Alcohol Intake: current Alcohol Intake frequency: holidays/special occasions only Alcohol type: beer Drug use: Current Sobriety Substance use type: former substance user, crack/cocaine, heroin and painkillers Details: stopped using substances for the past 4 years Adopted: No Caregiver/Support person: No Foster care: No Household members: none Housing: apartment Number of Children: 0 Communication Needs: None Education Level: high school Do you need help understanding health information?: Never current occupation: [employer] Pets and animals: Yes (Ally) Pets and animals: dog(s) Sexually active: No Do you think of yourself as: straight/heterosexual Current gender identity: male What is your relationship status?: How often do you talk on the phone with friends or family?: twice per week How often do you get together with friends or relatives?: never Do you belong to any clubs or organized social groups?: no Panel score (0-1 are the most socially isolated patients): 0 What type of physical activity do you participate in: walking Duration: 15-30 minutes/day Frequency: 5-6 times per week Maryam/Scientologist: Yazidi Special maryam needs: No Seatbelt use: always Helmet use: Yes Helmet use: always Drive intox or ride w/intox jinrikisha driver: No Do you feel safe at home: Yes Do you feel safe in your relationship?: Yes
[2025-01-11 11:41] VITALS: PULSE 89
[2025-01-11 11:50] VITALS: PULSE 100
[2025-01-11 12:01] VITALS: BP 153/88; PULSE 94; RESP 20; TEMP 36.6; O2SAT 98
[2025-01-11 12:07] LABS: Abs Immature Grans 0.02 10^3/uL (0.0-0.06); HCT 31.1 % (40.0-50.0); HGB 9.8 g/dL (13.5-17.5); Immature Grans % 0.2 %; MCH 26.6 pg (27.0-33.0); MCHC 31.5 % (32.0-36.0); MCV 85 fL (80-95); MPV 9.5 fL (8.0-11.0); Platelet Count 413 10^3/uL (130-400); RBC 3.68 10^6/uL (4.36-5.78); RDW 16.3 % (11.8-14.1); RDW-SD 50.4 fL; WBC 8.47 10^3/uL (4.4-10.8)
[2025-01-11 12:28] LABS: Magnesium 2.0 mg/dL (1.8-2.4)
[2025-01-11 12:34] LABS: ALT 52 U/L (16-63); AST 44 U/L (15-37); Albumin 3.1 g/dL (3.4-5.0); Alkaline Phosphatase 161 U/L (46-116); Anion Gap 6.5 mmol/L (3-11); BUN 10 mg/dL (7-18); Bilirubin, Total 0.3 mg/dL (0.2-1.0); CO2 30.5 mmol/L (21.0-32.0); Calcium 9.4 mg/dL (8.5-10.1); Chloride 100 mmol/L (98-107); Estimated GFR 63.44 (mL/min/1.73m2); Glucose 116 mg/dL (74-106); Potassium 3.8 mmol/L (3.5-5.1); Sodium 137 mmol/L (136-145); Total Protein 7.6 g/dL (6.4-8.2)
[2025-01-11 12:54] VITALS: BP 127/76; PULSE 87; RESP 20; TEMP 37; O2SAT 95
== END 2025-01-11 12:50 | disposition home or self-care (01) ==
PROVIDERS: Emergency Provider Emergency Medicine; PCP Family Medicine
DX: R00.2 Palpitations (principal); R07.9 Chest pain, unspecified
CPT/HCPCS: 99284; 99283; 80053; 93005; 83735; 85025; 93010

== ENCOUNTER 2025-01-12 19:19 | Emergency (ER) | payer OTHER, SELFPAY ==
[2025-01-12 19:34] VITALS: BP 122/87; PULSE 108; RESP 20; TEMP 37.7; O2SAT 94
[2025-01-12 19:36] VITALS: BP 122/87; PULSE 108; RESP 20; TEMP 37.7; O2SAT 94
--- NOTE | 2025-01-12 22:15 | W.ED.GENAD ---
Discharge Plan Disposition Patient Disposition: Home Condition: Stable Discharge Details Clinical Impression: Pharyngitis Primary Care Provider: Brendon Vivar ED Provider: Antoinette Templeton Home Meds and New Rx's Prescriptions: Continued gabapentin 300 mg capsule 300 mg PO BID Qty: 180 3RF omeprazole 40 mg capsule,delayed release(DR/EC) 40 mg PO DAILY Qty: 90 3RF lorazepam 1 mg tablet 1 mg PO DAILY PRN (Reason: anxiety) Qty: 10 0RF Rx Instructions: Use when considering ER visit clonazepam 1 mg tablet 1 mg PO BID Qty: 56 2RF cyclobenzaprine 10 mg tablet 10 mg PO TID PRN (Reason: muscle spasm) Qty: 30 3RF methadone 10 mg/5 mL solution 100 mg PO QAM calcitriol 0.5 mcg capsule 1 mcg PO .COMPLEX Qty: 270 3RF Rx Instructions: 1 mcg orally t2 tabs qam and 1 tab QHS; calcium carbonate [Tums] 200 mg calcium (500 mg) tablet,chewable 2,000 mg PO BID prochlorperazine maleate 5 mg tablet 5 mg PO TID PRN (Reason: acute nausea) Qty: 30 0RF polyethylene glycol 3350 17 gram powder in packet 17 g PO BID PRN magnesium gluconate 27 mg magnesium (500 mg) tablet 13.5 mg PO TID Qty: 60 3RF Discharge Instructions Instructions: Viral Pharyngitis, Sore Throat, Adult ED Additional Instructions: At this time the rapid strep swab is negative. We will send it for culture. Please gargle with warm salt water up to 3 times daily as needed. Please take Tylenol or Ibuprofen with food every 4-6 hours as needed for pain and swelling. You are given a long-acting steroid called dexamethasone orally today this should help with the inflammation of your throat. You may also take [id number] sore throat lozenges or spray. Follow up with primary care provider in 3-5 days. Return to ED sooner if any worsening or concerns. Referrals: Brendon Vivar DO [Primary Care Provider, Medicine] - 1 week Referral Note: ER follow-up, call for an appointment sore throat Discharge Data Discharge Date/Time-TO BE ENTERED AT DEPARTURE: 01/12/25 22:46 HPI General Mode of arrival: ambulatory. Date/Time Provider Initiated Documentation: 01/12/25 21:43. Limitations to Documentation: no limitations. Information obtained by: patient, RN notes reviewed and old records reviewed. HPI Narrative: 29-year-old male presents to the ER with a chief complaint of sore throat, throat irritation and URI type symptoms. Has not had any Tylenol ibuprofen prior to arrival. He has present with a low-grade temp. Was recently seen here and had lab work done which was within normal limits. Related Data Home Medications ?Medication ?Instructions ?Recorded ?Confirmed calcium carbonate (Tums) 2,000 mg PO BID 02/02/23 01/11/25 methadone 10 mg/5 mL oral solution 100 mg PO QAM 06/12/23 01/11/25 prochlorperazine maleate 5 mg 5 mg PO TID PRN acute nausea #30 09/06/23 01/11/25 tablet tabs magnesium gluconate 27 mg 13.5 mg (1/2 x 27 mg magnesium 11/21/23 01/11/25 magnesium (500 mg) tablet (500 mg)) PO TID #60 tabs gabapentin 300 mg capsule 300 mg PO BID #180 caps 06/01/24 01/11/25 calcitriol 0.5 mcg capsule 1 mcg (2 x 0.5 mcg) PO .COMPLEX 06/29/24 01/11/25 #270 caps omeprazole 40 mg capsule,delayed 40 mg PO DAILY #90 caps 07/27/24 01/11/25 release polyethylene glycol 3350 17 gram 17 g PO BID PRN 10/15/24 01/11/25 oral powder packet lorazepam 1 mg tablet 1 mg PO DAILY PRN anxiety #10 tabs 10/19/24 01/11/25 clonazepam 1 mg tablet 1 mg PO BID #56 tabs 11/16/24 01/11/25 cyclobenzaprine 10 mg tablet 10 mg PO TID PRN muscle spasm #30 11/16/24 01/11/25 tabs Previous Rx's ?Medication ?Instructions ?Recorded prochlorperazine maleate 5 mg 5 mg PO TID PRN acute nausea #30 09/06/23 tablet tabs magnesium gluconate 27 mg 13.5 mg (1/2 x 27 mg magnesium 11/21/23 magnesium (500 mg) tablet (500 mg)) PO TID #60 tabs gabapentin 300 mg capsule 300 mg PO BID #180 caps 06/01/24 calcitriol 0.5 mcg capsule 1 mcg (2 x 0.5 mcg) PO .COMPLEX 06/29/24 #270 caps omeprazole 40 mg capsule,delayed 40 mg PO DAILY #90 caps 07/27/24 release lorazepam 1 mg tablet 1 mg PO DAILY PRN anxiety #10 tabs 10/19/24 clonazepam 1 mg tablet 1 mg PO BID #56 tabs 11/16/24 cyclobenzaprine 10 mg tablet 10 mg PO TID PRN muscle spasm #30 11/16/24 tabs Allergies Allergy/AdvReac Type Severity Reaction Status Date / Time codeine Allergy Intermediate pass out Verified 01/11/25 11:01 Penicillins Allergy Skin Rash Verified 01/11/25 11:01 marijuana (cannabis) AdvReac Severe Paranoia Verified 01/11/25 11:01 amoxicillin AdvReac Intermediate Nausea Verified 01/11/25 11:01 dextromethorphan (From AdvReac Intermediate got Verified 01/11/25 11:01 NyQuil) really hot and sweaty doxylamine (From NyQuil) AdvReac Intermediate got Verified 01/11/25 11:01 really hot and sweaty pseudoephedrine (From NyQuil) AdvReac Intermediate got Verified 01/11/25 11:01 really hot and sweaty General Stated Complaint: Sorethroat ADRIANA: 5 Review of Systems All systems reviewed & are unremarkable except as noted in HPI and below ENT Ears, Nose, Mouth, and Throat: Reports as per HPI, Reports post nasal drip and Reports sore throat Cardiovascular Cardiovascular: Denies dyspnea Respiratory Respiratory: Denies change in phlegm color, Denies cough and Denies dyspnea Exam Narrative Exam Narrative: Constitutional: Alert and oriented x3. Appears stated age. Obese body habitus. Head: Normocephalic, no trauma. Eyes: Pupils PERRL, Red reflex noted, EOM's intact. Eyelids symmetrical without lesions, discharge, or swelling. ENT: Bilateral TM's WNL, External ear normal to inspection, no mastoid TTP, swelling, or erythema, Nasal turbinates WNL, no nasal discharge. Normal dentition, Posterior pharynx WNL, no exudate. Chest: RRR, Normal S1, S2, distal pulses intact. Resp: Lungs clear to auscultation bilaterally, no wheezes, rales, or rhonchi. Course Vital Signs Vital signs: Vital Signs Temperature 37.7 C H 01/12/25 19:34 Pulse 108 H 01/12/25 19:34 Respiratory Rate 20 01/12/25 19:34 Blood Pressure 122/87 01/12/25 19:34 Pulse Oximetry 94 01/12/25 19:34 Temperature 37.7 C H 01/12/25 19:36 Temperature Source Temporal Artery Scan 01/12/25 19:36 Pulse 108 H 01/12/25 19:36 Respiratory Rate 20 01/12/25 19:36 Blood Pressure 122/87 01/12/25 19:36 Blood Pressure Position Sitting 01/12/25 19:36 Pulse Oximetry 94 01/12/25 19:36 Oxygen Delivery Method Room Air 01/12/25 19:36 Oxygen Flow Rate 0 01/12/25 19:36 Pain Level 7 01/12/25 19:36 Lab/Test Results Lab/Test Results: 01/12/25 19:30 Pharynx Group A Streptococcus Culture - Pending POC Strep Test-DEBBY(Rapid) Start: 01/12/25 19:29 Freq: Status: Active Protocol: Document 01/12/25 19:38 HB (Rec: 01/12/25 19:38 [id number]) Strep test-DEBBY(Rapid)-POC POC-Strep test-DEBBY ( Negative Rapid) POC-Strep test-DEBBY (Rapid) Negative Medical Decision Making 29-year-old male presents to the ER with a chief complaint of sore throat, throat irritation and URI type symptoms. Has not had any Tylenol ibuprofen prior to arrival. He has present with a low-grade temp. Was recently seen here and had lab work done which was within normal limits. Will give a gram of Tylenol, 10 mg dexamethasone p.o. instructed on salt water gargles taking Tylenol or ibuprofen every 4-6 hours. I do suspect viral pharyngitis. Rapid strep was negative. Patient discharged in hemodynamically stable condition, no drooling noted, speaking in full sentences, no exudate noted on my exam lungs are clear to auscultation bilaterally. Denies any other associated symptoms or concerns. Patient was recently seen here in the emergency department yesterday for heart palpitations. He is well-known to the department. This text was generated using Nuance dictation system, please disregard any oddities of phrase or misspellings. Medical Records Medical records reviewed: Yes I reviewed the patient's medical records. Quality:SDOH Health Related Social Needs: Health related social needs daily activities PFSH All Active Problems (Updated 01/12/25 @ 22:29 by Antoinette Templeton NP) Pharyngitis (Acute) Heart palpitations (Acute) Dysphagia (Acute) Elevated blood uric acid level (Acute) Leg pain (Acute) Cough (Acute) Obstructive sleep apnea (Chronic) Metabolic dysfunction-associated fatty liver disease (MAFLD) (Acute) Fatty liver (Acute) IBS (irritable bowel syndrome) (Chronic) Obesity (Chronic) Migraine with aura (Acute) Testicle lump (Acute) Pes anserine bursitis (Acute) Left-sided Flower's palsy (Acute) Opiate dependence, continuous (Acute) 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 Possible 2' Methadone, Clnzpm (?). Surg eval (+)/No further action. History of electrolyte imbalance (Acute) Neck pain on left side (Acute) with shoulder, upper back pain.. torticollis, radiating into left hip/leg Pulmonary nodule 1 cm or greater in diameter (Chronic) Therapeutic opioid induced constipation (Acute) Sphincter of Oddi dysfunction (Chronic) Abnormal CT scan, kidney (Acute) Intrahepatic bile duct dilation (Acute) Common bile duct dilatation (Chronic) Has been dilated for quite some time, now more-so. Normal LFTs. Known gallstones. Depression (Chronic) Elevated parathyroid hormone (Acute) Family history of coronary arteriosclerosis (Chronic) Father of DE at 50, mother had DE at 42 Severe anxiety with panic (Chronic) Medical History Multiple endocrine neoplasia type I CKD (chronic kidney disease) stage 2, GFR 60-89 ml/min GFR 64-65, with Hx FLORESITA and GFR < 45 Primary hyperparathyroidism Complex medical condition Serious electrolyte imbalances, with gynecomastia, possible MEN Dx, CKD and anemia with baseline anxiety and Hx PTSD. Hypocalcemia Anxiety Depression Hyperlipidemia Family history of multiple endocrine neoplasia, type 1 PTSD (post-traumatic stress disorder) Per pt. states no triggers at this time. Surgical History History of laparoscopic cholecystectomy (~11/2023) H/O parathyroidectomy Family History Mother Anxiety Asthma Depression Sister Anxiety Depression Father Cancer lung & stomach Depression Diabetes Hypertension MEN 1 (multiple endocrine neoplasia) Social History Smoking/Tobacco Use Status: Never Smoking risk assessment performed?: Yes Alcohol Intake: current Alcohol Intake frequency: holidays/special occasions only Alcohol type: beer Drug use: Current Sobriety Substance use type: former substance user, crack/cocaine, heroin and painkillers Details: stopped using substances for the past 4 years Adopted: No Caregiver/Support person: No Foster care: No Household members: none Housing: apartment Number of Children: 0 Communication Needs: None Education Level: high school Do you need help understanding health information?: Never current occupation: [employer] Pets and animals: Yes (Ally) Pets and animals: dog(s) Sexually active: No Do you think of yourself as: straight/heterosexual Current gender identity: male What is your relationship status?: How often do you talk on the phone with friends or family?: twice per week How often do you get together with friends or relatives?: never Do you belong to any clubs or organized social groups?: no Panel score (0-1 are the most socially isolated patients): 0 What type of physical activity do you participate in: walking Duration: 15-30 minutes/day Frequency: 5-6 times per week Maryam/Sabianist: Adventism Special maryam needs: No Seatbelt use: always Helmet use: Yes Helmet use: always Drive intox or ride w/intox non emergency services ambulance driver: No Do you feel safe at home: Yes Do you feel safe in your relationship?: Yes
[2025-01-12] MEDS: Dexamethasone 10 MG/ML VIAL PO (22:45)
[2025-01-12] MEDS: Acetaminophen 500 MG TAB 1000 MG PO (22:45)
--- NOTE | 2025-01-15 13:02 | NUR.NOTE ---
Patient called for results of strep culture. Advised patient was negative for strep.
== END 2025-01-12 22:46 | disposition home or self-care (01) ==
PROVIDERS: Emergency Provider Registered Nurse Emergency; PCP Family Medicine
DX: J02.9 Acute pharyngitis, unspecified (principal)
CPT/HCPCS: 99283; 99282; 87880; 87081; J1100

== ENCOUNTER 2025-01-16 21:23 | Emergency (ER) | payer OTHER, SELFPAY ==
[2025-01-16 21:25] VITALS: BP 132/46; PULSE 87; RESP 18; TEMP 37.4; O2SAT 97
[2025-01-16 21:28] VITALS: BP 132/46; PULSE 87; RESP 18; TEMP 37.4; O2SAT 97
--- NOTE | 2025-01-16 21:30 | DI.RAD_ITS ---
Exam(s) XR CHEST 2V PA LATERAL EXAM: XR CHEST 2V PA LATERAL CLINICAL HISTORY: cough, shallow respirations TECHNIQUE: 2D digital imaging was performed of the chest. Two images were obtained. PA and lateral views were obtained. COMPARISON: CR,XR XR CHEST 2V PA LATERAL from 12/20/2024 FINDINGS: MEDIASTINUM: Normal. HEART: Normal. PULMONARY VASCULATURE: Normal. LUNGS: There is linear atelectasis in the right mid lung. No focal consolidating infiltrates are seen. PLEURAL SPACE: No pleural effusion or pneumothorax. BONE:Within normal limits for the patient's age. OTHER FINDINGS:Normal. IMPRESSION: 1. No acute pulmonary findings. 2. The preliminary [facility] report was reviewed. DATA REPOSITORY: RADIATION DOSE DELIVERED:
--- NOTE | 2025-01-16 21:45 | W.ED.GENAD ---
Discharge Plan Disposition Patient Disposition: Home Condition: Good Discharge Details Clinical Impression: Cough, Upper respiratory infection, viral Primary Care Provider: Brendon Vivar ED Provider: Saranya Estrada Home Meds and New Rx's Prescriptions: Continued gabapentin 300 mg capsule 300 mg PO BID Qty: 180 3RF omeprazole 40 mg capsule,delayed release(DR/EC) 40 mg PO DAILY Qty: 90 3RF lorazepam 1 mg tablet 1 mg PO DAILY PRN (Reason: anxiety) Qty: 10 0RF Rx Instructions: Use when considering ER visit clonazepam 1 mg tablet 1 mg PO BID Qty: 56 2RF cyclobenzaprine 10 mg tablet 10 mg PO TID PRN (Reason: muscle spasm) Qty: 30 3RF methadone 10 mg/5 mL solution 100 mg PO QAM calcitriol 0.5 mcg capsule 1 mcg PO .COMPLEX Qty: 270 3RF Rx Instructions: 1 mcg orally t2 tabs qam and 1 tab QHS; calcium carbonate [Tums] 200 mg calcium (500 mg) tablet,chewable 2,000 mg PO BID prochlorperazine maleate 5 mg tablet 5 mg PO TID PRN (Reason: acute nausea) Qty: 30 0RF polyethylene glycol 3350 17 gram powder in packet 17 g PO BID PRN magnesium gluconate 27 mg magnesium (500 mg) tablet 13.5 mg PO TID Qty: 60 3RF Discharge Instructions Additional Instructions: Please follow-up with your primary care provider if you are not feeling significantly better within the next couple of days. Your symptoms today are most consistent with a viral illness. Please stay well hydrated, drinking plenty of fluids throughout the day. You may use tylenol 650 mg every 8 hours as needed for fever /chills or body aches. Get plenty of rest. Practice good handwashing and wear a mask in public if you are coughing to avoid spreading illness to others. I encourage you to use the PEP device as taught to you by the nurse. I recommend you use this a couple of times a day to help keep your airways open. You may also use Tessalon Perles 3 times a day as needed for cough. Vicks vapor rub may also be helpful. A humidifier at bedside is recommended as well to help loosen mucus. Return to emergency care if you develop difficulty breathing, new chest pains, worsening of cough or fever after initial improvement, or if you are very worried and need to be rechecked again immediately. Referrals: Brendon Vivar DO [Primary Care Provider, Medicine] HPI General Date/Time Provider Initiated Documentation: 01/16/25 21:25. HPI Narrative: Pedro Pablo is a 29 year old male who presents to the ED for evaluation of concern for pneumonia. He reports he has had viral symptoms x 7 days, including sore throat (improving for the last few days), body aches, throat clearing/post nasal drip, shallow feeling breaths with discomfort with deep inspiration only. Denies recorded fevers, headaches, earaches, other chest pain, nausea/vomiting, abdominal pain, change in bowel or bladder function. He has been using humidifier, hot tea, and warm salt gargles for relief of sore throat. Also taking Tylenol. He does experience occasional lightheadedness that is attributed to decreased p.o. intake due to sore throat, says he has been trying to stay better hydrated today. PMH significant for MEN type I, electrolyte imbalances, CKD stage II, kidney stones. Surgical history significant for gallbladder removal. Related Data Home Medications ?Medication ?Instructions ?Recorded ?Confirmed calcium carbonate (Tums) 2,000 mg PO BID 02/02/23 01/11/25 methadone 10 mg/5 mL oral solution 100 mg PO QAM 06/12/23 01/11/25 prochlorperazine maleate 5 mg 5 mg PO TID PRN acute nausea #30 09/06/23 01/11/25 tablet tabs magnesium gluconate 27 mg 13.5 mg (1/2 x 27 mg magnesium 11/21/23 01/11/25 magnesium (500 mg) tablet (500 mg)) PO TID #60 tabs gabapentin 300 mg capsule 300 mg PO BID #180 caps 06/01/24 01/11/25 calcitriol 0.5 mcg capsule 1 mcg (2 x 0.5 mcg) PO .COMPLEX 06/29/24 01/11/25 #270 caps omeprazole 40 mg capsule,delayed 40 mg PO DAILY #90 caps 07/27/24 01/11/25 release polyethylene glycol 3350 17 gram 17 g PO BID PRN 10/15/24 01/11/25 oral powder packet lorazepam 1 mg tablet 1 mg PO DAILY PRN anxiety #10 tabs 10/19/24 01/11/25 clonazepam 1 mg tablet 1 mg PO BID #56 tabs 11/16/24 01/11/25 cyclobenzaprine 10 mg tablet 10 mg PO TID PRN muscle spasm #30 11/16/24 01/11/25 tabs Previous Rx's ?Medication ?Instructions ?Recorded prochlorperazine maleate 5 mg 5 mg PO TID PRN acute nausea #30 09/06/23 tablet tabs magnesium gluconate 27 mg 13.5 mg (1/2 x 27 mg magnesium 11/21/23 magnesium (500 mg) tablet (500 mg)) PO TID #60 tabs gabapentin 300 mg capsule 300 mg PO BID #180 caps 06/01/24 calcitriol 0.5 mcg capsule 1 mcg (2 x 0.5 mcg) PO .COMPLEX 06/29/24 #270 caps omeprazole 40 mg capsule,delayed 40 mg PO DAILY #90 caps 07/27/24 release lorazepam 1 mg tablet 1 mg PO DAILY PRN anxiety #10 tabs 10/19/24 clonazepam 1 mg tablet 1 mg PO BID #56 tabs 11/16/24 cyclobenzaprine 10 mg tablet 10 mg PO TID PRN muscle spasm #30 11/16/24 tabs Allergies Allergy/AdvReac Type Severity Reaction Status Date / Time codeine Allergy Intermediate pass out Verified 01/11/25 11:01 Penicillins Allergy Skin Rash Verified 01/11/25 11:01 marijuana (cannabis) AdvReac Severe Paranoia Verified 01/11/25 11:01 amoxicillin AdvReac Intermediate Nausea Verified 01/11/25 11:01 dextromethorphan (From AdvReac Intermediate got Verified 01/11/25 11:01 NyQuil) really hot and sweaty doxylamine (From NyQuil) AdvReac Intermediate got Verified 01/11/25 11:01 really hot and sweaty pseudoephedrine (From NyQuil) AdvReac Intermediate got Verified 01/11/25 11:01 really hot and sweaty General Stated Complaint: RespSymp ADRIANA: 4 Exam Narrative Exam Narrative: General Appearance: Normal. Vital signs: Within normal limits. HEENT: Hoarse voice, mucous membranes. Mild oropharyngeal erythema. Respiratory: Occasional cough. Easy work of breathing, lung sounds clear bilaterally. Cardiac: Regular rate and rhythm, normal heart sounds. Skin: Warm and dry, no rash. Psychiatric: Normal. Course Vital Signs Vital signs: Vital Signs Temperature 37.4 C 01/16/25 21: Pulse 87 01/16/25 21: Respiratory Rate 18 01/16/25 21:25 Blood Pressure 132/46 L 01/16/25 21:25 Pulse Oximetry 97 01/16/25 21:25 Temperature 37.4 C 01/16/25 21: Temperature Source Oral 01/16/25 21: Pulse 87 01/16/25 21: Respiratory Rate 18 01/16/25 21:28 Respiratory Effort Normal, Non-Labored 01/16/25 21: Respiratory Depth Normal 01/16/25 21: Blood Pressure 132/46 L 01/16/25 21: Blood Pressure Position Sitting 01/16/25 21: Pulse Oximetry 97 01/16/25 21: Oxygen Delivery Method Room Air 01/16/25 21: Oxygen Flow Rate 0 01/16/25 21: Pain Level 4 01/16/25 21:28 Medical Decision Making Initial Assessment: 29-year-old male with persistent cough, viral symptoms, and dyspnea for almost a week. Reports sore throat, fever, chills, body aches, and dizziness. Concerned about pneumonia. Differential Diagnosis includes but is not limited to pneumonia, viral illness, postnasal drip. History not concerning for ACS or cardiac etiology of symptoms at this time ED Course: - Ordered chest x-ray (negative) - Ordered COVID-19 and flu test (negative) I independently interpreted the following tests: COVID and flu negative. No obvious infiltrates noted on chest x-ray, this was confirmed by radiologist In the emergency department Pedro Pablo wiliam Flores, reports breathing feels much better since he is no longer struggling to not cough. Says he thinks he will be able to sleep well tonight. Overall workup today very reassuring. Cough most likely due to viral illness. Clinical Impression: - Cough - Viral symptoms Reviewed discharge instructions with patient, including use of VibraPEP, MAC management, Tessalon Perles (he has a prescription at home), flags indicate need for return to emergency care. Recommend follow-up with PCP if symptoms not significantly improved within 3 days. He voices agreement plan of care Patient consented to the use of FATMATA Imaging Data Radiologic Study: Radiologist's impression: PROCEDURE INFORMATION: Exam: XR Chest Exam date and time: 01/16/2025 9:54 PM Age: 29 years old Clinical indication: Other: SOB TECHNIQUE: Imaging protocol: Radiologic exam of the chest. Views: 2 views. COMPARISON: CT NECK CHEST W 01/01/2025 9:21 PM FINDINGS: Lungs: Unremarkable. No consolidation. Pleural spaces: Unremarkable. No pleural effusion. No pneumothorax. Heart/Mediastinum: Unremarkable. No cardiomegaly. Bones/joints: Unremarkable. IMPRESSION: No acute findings Quality:SDOH Health Related Social Needs: Health related social needs daily activities PFSH All Active Problems (Updated 01/16/25 @ 22:59 by Saranya Avila) Upper respiratory infection, viral (Acute) Cough (Acute) Pharyngitis (Acute) Heart palpitations (Acute) Dysphagia (Acute) Elevated blood uric acid level (Acute) Leg pain (Acute) Cough (Acute) Obstructive sleep apnea (Chronic) Metabolic dysfunction-associated fatty liver disease (MAFLD) (Acute) Fatty liver (Acute) IBS (irritable bowel syndrome) (Chronic) Obesity (Chronic) Migraine with aura (Acute) Testicle lump (Acute) Pes anserine bursitis (Acute) Left-sided Flower's palsy (Acute) Opiate dependence, continuous (Acute) 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 Possible 2' Methadone, Clnzpm (?). Surg eval (+)/No further action. History of electrolyte imbalance (Acute) Neck pain on left side (Acute) with shoulder, upper back pain.. torticollis, radiating into left hip/leg Pulmonary nodule 1 cm or greater in diameter (Chronic) Therapeutic opioid induced constipation (Acute) Sphincter of Oddi dysfunction (Chronic) Abnormal CT scan, kidney (Acute) Intrahepatic bile duct dilation (Acute) Common bile duct dilatation (Chronic) Has been dilated for quite some time, now more-so. Normal LFTs. Known gallstones. Depression (Chronic) Elevated parathyroid hormone (Acute) Family history of coronary arteriosclerosis (Chronic) Father of ME at 50, mother had ME at 42 Severe anxiety with panic (Chronic) Medical History Multiple endocrine neoplasia type I CKD (chronic kidney disease) stage 2, GFR 60-89 ml/min GFR 64-65, with Hx FLORESITA and GFR < 45 Primary hyperparathyroidism Complex medical condition Serious electrolyte imbalances, with gynecomastia, possible MEN Dx, CKD and anemia with baseline anxiety and Hx PTSD. Hypocalcemia Anxiety Depression Hyperlipidemia Family history of multiple endocrine neoplasia, type 1 PTSD (post-traumatic stress disorder) Per pt. states no triggers at this time. Surgical History History of laparoscopic cholecystectomy (~11/2023) H/O parathyroidectomy Family History Mother Anxiety Asthma Depression Sister Anxiety Depression Father Cancer lung & stomach Depression Diabetes Hypertension MEN 1 (multiple endocrine neoplasia) Social History Smoking/Tobacco Use Status: Never Smoking risk assessment performed?: Yes Alcohol Intake: current Alcohol Intake frequency: holidays/special occasions only Alcohol type: beer Drug use: Current Sobriety Substance use type: former substance user, crack/cocaine, heroin and painkillers Details: stopped using substances for the past 4 years Adopted: No Caregiver/Support person: No Foster care: No Household members: none Housing: apartment Number of Children: 0 Communication Needs: None Education Level: high school Do you need help understanding health information?: Never current occupation: [employer] Pets and animals: Yes (Ally) Pets and animals: dog(s) Sexually active: No Do you think of yourself as: straight/heterosexual Current gender identity: male What is your relationship status?: How often do you talk on the phone with friends or family?: twice per week How often do you get together with friends or relatives?: never Do you belong to any clubs or organized social groups?: no Panel score (0-1 are the most socially isolated patients): 0 What type of physical activity do you participate in: walking Duration: 15-30 minutes/day Frequency: 5-6 times per week Maryam/Orthodoxy: Evangelical Special maryam needs: No Seatbelt use: always Helmet use: Yes Helmet use: always Drive intox or ride w/intox otr driver: No Do you feel safe at home: Yes Do you feel safe in your relationship?: Yes
[2025-01-16] MEDS: Benzonatate 100 MG CAP PO (22:20)
--- NOTE | 2025-01-16 22:46 | DI.VRAD_ITS ---
PROCEDURE INFORMATION: Exam: XR Chest Exam date and time: 01/16/2025 9:54 PM Age: 29 years old Clinical indication: Other: SOB TECHNIQUE: Imaging protocol: Radiologic exam of the chest. Views: 2 views. COMPARISON: CT NECK CHEST W 01/01/2025 9:21 PM FINDINGS: Lungs: Unremarkable. No consolidation. Pleural spaces: Unremarkable. No pleural effusion. No pneumothorax. Heart/Mediastinum: Unremarkable. No cardiomegaly. Bones/joints: Unremarkable. IMPRESSION: No acute findings. Dictated and Authenticated by: Jammie Rodrigues MD. Orderin Jacquelyn Beaver MD
== END 2025-01-16 23:15 | disposition home or self-care (01) ==
PROVIDERS: Emergency Provider Nurse Practitioner Family; PCP Family Medicine
DX: J06.9 Acute upper respiratory infection, unspecified (principal); B97.89 Other viral agents as the cause of diseases classified elsewhere; N18.2 Chronic kidney disease, stage 2 (mild); E78.5 Hyperlipidemia, unspecified
CPT/HCPCS: 87426; 99284; 71046; 99283

== ENCOUNTER 2025-01-21 08:29 | Emergency (ER) | payer OTHER, SELFPAY ==
[2025-01-21] VITALS (37 sets, daily range): BP systolic 104–134; BP diastolic 51–84; PULSE 77–104; RESP 12–22; TEMP 36.8; O2SAT 92–99
--- NOTE | 2025-01-21 08:30 | RT.EKG_ITS ---
APPROVED REPORT Exam: Resting ECG Reason for Exam: chest pain Patient Location: E HR:105 bpm ECG Measurements Heart Rate 105 AXIS DC 174 P 42 QRSd 98 QRS 27 QT 368 T 39 QTc 487 Conclusion Sinus tachycardia...rate> 99 No Occlusion IA
--- NOTE | 2025-01-21 08:40 | W.ED.GENAD ---
Discharge Plan Disposition Patient Disposition: Home Condition: Stable Discharge Details Clinical Impression: Chest pain of uncertain etiology, Anemia Primary Care Provider: Brendon Vivar ED Provider: Richy Oakes Home Meds and New Rx's Prescriptions: Continued gabapentin 300 mg capsule 300 mg PO BID Qty: 180 3RF omeprazole 40 mg capsule,delayed release(DR/EC) 40 mg PO DAILY Qty: 90 3RF lorazepam 1 mg tablet 1 mg PO DAILY PRN (Reason: anxiety) Qty: 10 0RF Rx Instructions: Use when considering ER visit clonazepam 1 mg tablet 1 mg PO BID Qty: 56 2RF cyclobenzaprine 10 mg tablet 10 mg PO TID PRN (Reason: muscle spasm) Qty: 30 3RF methadone 10 mg/5 mL solution 100 mg PO QAM calcitriol 0.5 mcg capsule 1 mcg PO .COMPLEX Qty: 270 3RF Rx Instructions: 1 mcg orally t2 tabs qam and 1 tab QHS; calcium carbonate [Tums] 200 mg calcium (500 mg) tablet,chewable 2,000 mg PO BID prochlorperazine maleate 5 mg tablet 5 mg PO TID PRN (Reason: acute nausea) Qty: 30 0RF polyethylene glycol 3350 17 gram powder in packet 17 g PO BID PRN magnesium gluconate 27 mg magnesium (500 mg) tablet 13.5 mg PO TID Qty: 60 3RF Discharge Instructions Instructions: Anemia of inflammation (anemia of chronic disease), Chest Pain, Adult ED Additional Instructions: You were seen in the emergency department for your anemia, this may be due to your thyroid issues as well as possible elevation of liver enzymes which is mild at this time. We have sent out labs for hepatitis panel as well as a tick and Lyme panel. Your hemoglobin is around 9, this does not warrant transfusion, your electrolytes are normal. Your cardiac workup is negative and there is no evidence of blood clot in the lungs on the D-dimer test, your chest x-ray shows no acute abnormality. It is unclear what is causing your chest pain but you need to follow-up with your primary care provider for recheck of your anemia next week with possible referral to hematology, please call general surgery office follow-up with you desired to explore further EGD with your upper GI pain with them. Please return to the emergency department for any severe increase in chest pain, weakness, or any other emergent concerns. Referrals: Brendon Vivar DO [Primary Care Provider, Medicine] Discharge Data Discharge Date/Time-TO BE ENTERED AT DEPARTURE: 01/21/25 13:22 HPI General Date/Time Provider Initiated Documentation: 01/21/25 08:39. HPI Narrative: 29 year-old male presents to ED today by POV/ambulating with a chief complaint of chest pressure with onset around 0300 this morning, awoken from sleep. Quality described as different than past episodes of muscle pain, no radiation to sweating, shortness of breath, near syncope, fever, vomiting, cough- does endorse getting over a GI bug last week- and feels slightly dehydrated like his electrolytes are off. Severity is described as 6-7/10. Palliating factors include nothing specific. Provoking factors include nothing specific. Patient not anticoagulated. Related Data Home Medications ?Medication ?Instructions ?Recorded ?Confirmed calcium carbonate (Tums) 2,000 mg PO BID 02/02/23 01/24/25 methadone 10 mg/5 mL oral solution 100 mg PO QAM 06/12/23 01/24/25 prochlorperazine maleate 5 mg 5 mg PO TID PRN acute nausea #30 09/06/23 01/24/25 tablet tabs magnesium gluconate 27 mg 13.5 mg (1/2 x 27 mg magnesium 11/21/23 01/24/25 magnesium (500 mg) tablet (500 mg)) PO TID #60 tabs gabapentin 300 mg capsule 300 mg PO BID #180 caps 06/01/24 01/24/25 calcitriol 0.5 mcg capsule 1 mcg (2 x 0.5 mcg) PO .COMPLEX 06/29/24 01/24/25 #270 caps omeprazole 40 mg capsule,delayed 40 mg PO DAILY #90 caps 07/27/24 01/24/25 release polyethylene glycol 3350 17 gram 17 g PO BID PRN 10/15/24 01/24/25 oral powder packet lorazepam 1 mg tablet 1 mg PO DAILY PRN anxiety #10 tabs 10/19/24 01/24/25 clonazepam 1 mg tablet 1 mg PO BID #56 tabs 11/16/24 01/24/25 cyclobenzaprine 10 mg tablet 10 mg PO TID PRN muscle spasm #30 11/16/24 01/24/25 tabs Previous Rx's ?Medication ?Instructions ?Recorded prochlorperazine maleate 5 mg 5 mg PO TID PRN acute nausea #30 09/06/23 tablet tabs magnesium gluconate 27 mg 13.5 mg (1/2 x 27 mg magnesium 11/21/23 magnesium (500 mg) tablet (500 mg)) PO TID #60 tabs gabapentin 300 mg capsule 300 mg PO BID #180 caps 06/01/24 calcitriol 0.5 mcg capsule 1 mcg (2 x 0.5 mcg) PO .COMPLEX 06/29/24 #270 caps omeprazole 40 mg capsule,delayed 40 mg PO DAILY #90 caps 07/27/24 release lorazepam 1 mg tablet 1 mg PO DAILY PRN anxiety #10 tabs 10/19/24 clonazepam 1 mg tablet 1 mg PO BID #56 tabs 11/16/24 cyclobenzaprine 10 mg tablet 10 mg PO TID PRN muscle spasm #30 11/16/24 tabs Allergies Allergy/AdvReac Type Severity Reaction Status Date / Time codeine Allergy Intermediate pass out Verified 01/24/25 07:48 Penicillins Allergy Skin Rash Verified 01/24/25 07:48 marijuana (cannabis) AdvReac Severe Paranoia Verified 01/24/25 07:48 amoxicillin AdvReac Intermediate Nausea Verified 01/24/25 07:48 dextromethorphan (From AdvReac Intermediate got Verified 01/24/25 07:48 NyQuil) really hot and sweaty doxylamine (From NyQuil) AdvReac Intermediate got Verified 01/24/25 07:48 really hot and sweaty pseudoephedrine (From NyQuil) AdvReac Intermediate got Verified 01/24/25 07:48 really hot and sweaty General Stated Complaint: Chest Pain ADRIANA: 3 Review of Systems All systems reviewed & are unremarkable except as noted in HPI and below Exam Narrative Exam Narrative: GENERAL APPEARANCE: Well-nourished, non-toxic, awake and alert, atraumatic, no acute distress. SKIN: Warm, pink, dry, intact, without rashes/lesions/ulcerations. HEAD: Normocephalic, atraumatic, normal hair distribution for gender/age. EYES: Normal conjunctiva, no exudates on lids/lashes. ENT: Nares patent, no circumoral cyanosis, no facial swelling NECK: Supple, trachea midline, painless cervical ROM. LUNGS/CHEST: Lungs CTA bilaterally- no rhonci/rales/wheezes diffusely, non-labored respirations, normal A/P diameter, symmetrical expansion, no chest wall deformity HEART (CV/PV): Regular rate and rhythm without murmur, no peripheral edema, no JVD. ABDOMEN: Soft, non-distended, no guarding, no tenderness. MSK: Normal ROM, no swelling/deformity to bilateral UEs or LEs, moving all extremities without weakness, no cyanosis, spine midline without tenderness, normal curvature. NEURO: Mental Status AAOx4 - alert to person, place, time, events No facial droop, no forehead involvement. Motor: No focal weakness - strength 5/5 in bilateral UEs and LEs, proximal and distal, symmetric. Sensory: sensation intact to light touch globally. Gait normal: patient ambulated without ataxia into ED room. PSYCH: euthymic, cooperative, pleasant, appropriate speech Course Vital Signs Vital signs: Vital Signs Temperature 36.8 C 01/21/25 08:31 Pulse 104 H 01/21/25 08:31 Respiratory Rate 16 01/21/25 08:31 Blood Pressure 134/82 01/21/25 08:31 Pulse Oximetry 96 01/21/25 08:31 Temperature 36.8 C 01/21/25 08:31 Temperature Source Oral 01/21/25 08:31 Pulse 104 H 01/21/25 08:31 Respiratory Rate 16 01/21/25 08:31 Blood Pressure 134/82 01/21/25 08:31 Blood Pressure Position Sitting 01/21/25 08:31 Pulse Oximetry 96 01/21/25 08:31 Oxygen Delivery Method Room Air 01/21/25 08:31 Oxygen Flow Rate 0 01/21/25 08:31 Pain Level 5 01/21/25 08:31 Medical Decision Making This dictation utilizes [id number] dictation software and may contain unedited grammatical errors. 29 year-old male presents to ED today by POV/ambulating with a chief complaint of chest pressure with onset around 0300 this morning, awoken from sleep. Quality described as different than past episodes of muscle pain, no radiation to sweating, shortness of breath, near syncope, fever, vomiting, cough- does endorse getting over a GI bug last week- and feels slightly dehydrated like his electrolytes are off. Severity is described as 6-7/10. Palliating factors include nothing specific. Provoking factors include nothing specific. Patients' medical history: CKD, primary hyperparathyroidism, hyperlipidemia, history of chest pain and palpitations, opioid dependence. Family and social history: Noncontributory. Pertinent exam findings / vital signs include benign cardiopulmonary exam, benign abdomen, nontoxic stable vitals, afebrile, neuro intact. Differential / pathologies of concern include ACS, gastroenteritis, pleurisy, pneumonia, electrolyte abnormality, biliary colic, renal colic, colitis, costochondritis. Diagnostic studies of: - CBC, CMP, reticulocyte count, D-dimer, troponin, lipase, vitamin B12, TSH, iron and TIBC, magnesium, COVID/flu/RSV PCR, send out of tick and Lyme panel as well as hepatitis panel, EKG. - CBC shows no leukocytosis, does show anemia that is worse than his usual mild chronic anemia - Normal reticulocyte count - Low iron at 18, TIBC normal - Troponin negative reliable onset - Lipase negative - Vitamin B12 normal - TSH within normal limits - UA benign - Respiratory PCR swab negative - Magnesium within normal limits - CMP is unremarkable - D-dimer negative - X-ray chest shows no acute abnormality - EKG shows sinus tachycardia at 105 bpm with P waves followed by a narrow complex QRS with normal axis, good R wave progression, no ST changes of ischemia, normal intervals Interventions of: -1L IVF LR. ED Course/Assessment/Plan: Patient presents with L sided chest pain that awoke him from bed at 0300 today. No cardiac history, believes it to be his electrolytes. Trop's negative, D-dimer negative, CXR negative. Patient has anemia worse than usual- mild elev of LFTs- and recent resolved GI illness. Consider tick-borne illness vs hep A both of which sent-out. Vs viral syndrome and anemia of chronic nature with acute worsening. Do not suspect GI bleeding- stool occult card negative. Findings not consistent with ACS, PE, PNA, Bleeding, Sepsis, Liver Failure, FLORESITA, Severe Dehydration, Electrolyte Abnormality. Disposition of Anemia, Chest Pain of Uncertain Cause. Patient verbalized understanding of the plan and return to ED criteria and engaged in shared decision making. Medical Records Medical records reviewed: Yes I reviewed the patient's medical records. Imaging Data Radiologic Study: Attestation: I personally reviewed and interpreted this imaging study as follows: Imaging: X-Ray Radiologist's impression: EXAM: XR CHEST 2V PA LATERAL CLINICAL HISTORY: chest pain. TECHNIQUE: 2D digital imaging was performed. COMPARISON: CR,XR XR CHEST 2V PA LATERAL from 01/16/2025 FINDINGS: 2 views: Heart size is normal. The mediastinum is not widened. Lungs are clear. No infiltrates nor pleural effusions. IMPRESSION: No acute pulmonary findings. Lab Data Lab results reviewed: Yes I reviewed the patient's lab results. Labs: Laboratory Tests Range/Units 01/21/25 01/21/25 01/21/25 08:51 09:00 09:03 WBC (4.4-10.8) 10^3/uL 9.65 RBC (4.36-5.78) 10^6/uL 3.62 L Hgb (13.5-17.5) g/dL 9.5 L Hct (40.0-50.0) % 30.3 L MCV (80-95) fL 84 MCH (27.0-33.0) pg 26.2 L MCHC (32.0-36.0) % 31.4 L RDW (11.8-14.1) % 16.1 H Plt Count (130-400) 10^3/uL 407 H MPV (8.0-11.0) fL 9.6 Reticulocyte % (Auto) (0.5-2.4) % Immature Gran % % 0.7 Neutrophils % % 62.7 Lymphocytes % % 21.7 Monocytes % % 11.5 Eosinophils % % 3.0 Basophils % % 0.4 Nucleated RBC % (0.0-0.3) % 0.0 Absolute Neutrophils (1.2-6.7) 10^3/uL 6.05 Absolute Lymphocytes (1.2-3.4) 10^3/uL 2.09 Absolute Monocytes (0.1-0.8) 10^3/uL 1.11 H Absolute Eosinophils (0.0-0.7) 10^3/uL 0.29 Absolute Basophils (0.0-0.2) 10^3/uL 0.04 D-Dimer (<500) ng/mlFEU 364 Sodium (136-145) mmol/L 137 Potassium (3.5-5.1) mmol/L 3.7 Chloride (98-107) mmol/L 100 Carbon Dioxide (21.0-32.0) mmol/L 31.9 Anion Gap (3-11) mmol/L 5.1 BUN (7-18) mg/dL 15 Creatinine (0.70-1.30) mg/dL 1.5 H Est GFR (CKD-EPI 2020) (mL/min/1.73m2) 63.44 Glucose (74-106) mg/dL 104 Calcium (8.5-10.1) mg/dL 8.8 Magnesium (1.8-2.4) mg/dL 1.9 TIBC (250-450) ug/dL 333 Ferritin (26-388) ng/mL 18 L Total Bilirubin (0.2-1.0) mg/dL 0.3 AST (15-37) U/L 43 H ALT (16-63) U/L 103 H Alkaline Phosphatase (46-116) U/L 194 H Troponin I (<or=76) ng/L 6 Total Protein (6.4-8.2) g/dL 7.7 Albumin (3.4-5.0) g/dL 3.1 L Lipase (<78) U/L 31 Vitamin B12 (193-986) pg/mL 378 TSH (0.36-3.74) uIU/mL 1.86 Urine Color (Yellow) Yellow Urine Clarity (Clear) Clear Urine pH (5-8) 7.0 Ur Specific [place] (1.005-1.025) 1.010 Urine Protein (Neg-Trace) mg/dL Negative Urine Ketones (Negative) mg/dL Negative Urine Blood (Negative) Negative Urine Nitrite (Negative) Negative Urine Bilirubin (Negative) Negative Urine Urobilinogen (Up to 0.2) mg/dL 0.2 Ur Leukocyte Esterase (Negative) Negative Urine Glucose (Negative) mg/dL Negative COVID-19 Source Nasopharynx SARS-CoV-2 (PCR) (Negative) Negative Influenza Type A (PCR) (Negative) Negative Influenza Type B (PCR) (Negative) Negative RSV (PCR) (Negative) Negative Range/Units 01/21/25 11:47 WBC (4.4-10.8) 10^3/uL RBC (4.36-5.78) 10^6/uL Hgb (13.5-17.5) g/dL 8.9 L Hct (40.0-50.0) % 28.7 L MCV (80-95) fL MCH (27.0-33.0) pg MCHC (32.0-36.0) % RDW (11.8-14.1) % Plt Count (130-400) 10^3/uL MPV (8.0-11.0) fL Reticulocyte % (Auto) (0.5-2.4) % 1.8 Immature Gran % % Neutrophils % % Lymphocytes % % Monocytes % % Eosinophils % % Basophils % % Nucleated RBC % (0.0-0.3) % Absolute Neutrophils (1.2-6.7) 10^3/uL Absolute Lymphocytes (1.2-3.4) 10^3/uL Absolute Monocytes (0.1-0.8) 10^3/uL Absolute Eosinophils (0.0-0.7) 10^3/uL Absolute Basophils (0.0-0.2) 10^3/uL D-Dimer (<500) ng/mlFEU Sodium (136-145) mmol/L Potassium (3.5-5.1) mmol/L Chloride (98-107) mmol/L Carbon Dioxide (21.0-32.0) mmol/L Anion Gap (3-11) mmol/L BUN (7-18) mg/dL Creatinine (0.70-1.30) mg/dL Est GFR (CKD-EPI 2020) (mL/min/1.73m2) Glucose (74-106) mg/dL Calcium (8.5-10.1) mg/dL Magnesium (1.8-2.4) mg/dL TIBC (250-450) ug/dL Ferritin (26-388) ng/mL Total Bilirubin (0.2-1.0) mg/dL AST (15-37) U/L ALT (16-63) U/L Alkaline Phosphatase (46-116) U/L Troponin I (<or=76) ng/L Total Protein (6.4-8.2) g/dL Albumin (3.4-5.0) g/dL Lipase (<78) U/L Vitamin B12 (193-986) pg/mL TSH (0.36-3.74) uIU/mL Urine Color (Yellow) Urine Clarity (Clear) Urine pH (5-8) Ur Specific [place] (1.005-1.025) Urine Protein (Neg-Trace) mg/dL Urine Ketones (Negative) mg/dL Urine Blood (Negative) Urine Nitrite (Negative) Urine Bilirubin (Negative) Urine Urobilinogen (Up to 0.2) mg/dL Ur Leukocyte Esterase (Negative) Urine Glucose (Negative) mg/dL COVID-19 Source SARS-CoV-2 (PCR) (Negative) Influenza Type A (PCR) (Negative) Influenza Type B (PCR) (Negative) RSV (PCR) (Negative) Quality:SDOH Health Related Social Needs: Health related social needs daily activities PFSH All Active Problems (Updated 01/24/25 @ 09:58 by Tere Adams MD) Abdominal pain (Acute) Anemia (Chronic) Chest pain of uncertain etiology (Acute) Upper respiratory infection, viral (Acute) Cough (Acute) Pharyngitis (Acute) Heart palpitations (Acute) Dysphagia (Acute) Elevated blood uric acid level (Acute) Obstructive sleep apnea (Chronic) Metabolic dysfunction-associated fatty liver disease (MAFLD) (Acute) Fatty liver (Acute) IBS (irritable bowel syndrome) (Chronic) Obesity (Chronic) Migraine with aura (Acute) Testicle lump (Acute) Pes anserine bursitis (Acute) Left-sided Flower's palsy (Acute) Opiate dependence, continuous (Acute) 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 Possible 2' Methadone, Clnzpm (?). Surg eval (+)/No further action. History of electrolyte imbalance (Acute) Neck pain on left side (Acute) with shoulder, upper back pain.. torticollis, radiating into left hip/leg Pulmonary nodule 1 cm or greater in diameter (Chronic) Therapeutic opioid induced constipation (Acute) Sphincter of Oddi dysfunction (Chronic) Abnormal CT scan, kidney (Acute) Intrahepatic bile duct dilation (Acute) Common bile duct dilatation (Chronic) Has been dilated for quite some time, now more-so. Normal LFTs. Known gallstones. Depression (Chronic) Elevated parathyroid hormone (Acute) Family history of coronary arteriosclerosis (Chronic) Father of TX at 50, mother had TX at 42 Severe anxiety with panic (Chronic) Medical History Multiple endocrine neoplasia type I CKD (chronic kidney disease) stage 2, GFR 60-89 ml/min GFR 64-65, with Hx FLORESITA and GFR < 45 Primary hyperparathyroidism Complex medical condition Serious electrolyte imbalances, with gynecomastia, possible MEN Dx, CKD and anemia with baseline anxiety and Hx PTSD. Hypocalcemia Anxiety Depression Hyperlipidemia Family history of multiple endocrine neoplasia, type 1 PTSD (post-traumatic stress disorder) Per pt. states no triggers at this time. Surgical History History of laparoscopic cholecystectomy (~11/2023) H/O parathyroidectomy Family History Mother Anxiety Asthma Depression Sister Anxiety Depression Father Cancer lung & stomach Depression Diabetes Hypertension MEN 1 (multiple endocrine neoplasia) Social History Smoking/Tobacco Use Status: Never Smoking risk assessment performed?: Yes Alcohol Intake: never Drug use: Current Sobriety Substance use type: former substance user, crack/cocaine, heroin and painkillers Details: stopped using substances for the past 4 years Adopted: No Caregiver/Support person: No Foster care: No Household members: none Housing: apartment Number of Children: 0 Communication Needs: None Education Level: high school Do you need help understanding health information?: Never current occupation: [employer] Pets and animals: Yes (Ally) Pets and animals: dog(s) Sexually active: No Do you think of yourself as: straight/heterosexual Current gender identity: male What is your relationship status?: How often do you talk on the phone with friends or family?: twice per week How often do you get together with friends or relatives?: never Do you belong to any clubs or organized social groups?: no Panel score (0-1 are the most socially isolated patients): 0 What type of physical activity do you participate in: walking Duration: 15-30 minutes/day Frequency: 5-6 times per week Maryam/Latter Day: Muslim Special maryam needs: No Seatbelt use: always Helmet use: Yes Helmet use: always Drive intox or ride w/intox forklift driver: No Do you feel safe at home: Yes Do you feel safe in your relationship?: Yes
[2025-01-21 09:13] LABS: Abs Immature Grans 0.07 10^3/uL (0.0-0.06); HCT 30.3 % (40.0-50.0); HGB 9.5 g/dL (13.5-17.5); Immature Grans % 0.7 %; MCH 26.2 pg (27.0-33.0); MCHC 31.4 % (32.0-36.0); MCV 84 fL (80-95); MPV 9.6 fL (8.0-11.0); Platelet Count 407 10^3/uL (130-400); RBC 3.62 10^6/uL (4.36-5.78); RDW 16.1 % (11.8-14.1); RDW-SD 49.0 fL; WBC 9.65 10^3/uL (4.4-10.8)
[2025-01-21 09:32] LABS: Glucose Negative (Negative)
[2025-01-21 09:39] LABS: TSH (W/Ref FT4) 1.86 uIU/mL (0.36-3.74); Troponin I 6 ng/L (<or=76)
[2025-01-21 09:41] LABS: ALT 103 U/L (16-63); AST 43 U/L (15-37); Albumin 3.1 g/dL (3.4-5.0); Alkaline Phosphatase 194 U/L (46-116); Anion Gap 5.1 mmol/L (3-11); BUN 15 mg/dL (7-18); Bilirubin, Total 0.3 mg/dL (0.2-1.0); CO2 31.9 mmol/L (21.0-32.0); Calcium 8.8 mg/dL (8.5-10.1); Chloride 100 mmol/L (98-107); Estimated GFR 63.44 (mL/min/1.73m2); Glucose 104 mg/dL (74-106); Lipase 31 U/L (<78); Magnesium 1.9 mg/dL (1.8-2.4); Potassium 3.7 mmol/L (3.5-5.1); Sodium 137 mmol/L (136-145); Total Protein 7.7 g/dL (6.4-8.2)
[2025-01-21 09:42] LABS: D-Dimer 364 ng/mlFEU (<500)
[2025-01-21 09:53] LABS: COVID-19 PCR Negative (Negative); RSV PCR Negative (Negative)
--- NOTE | 2025-01-21 10:00 | DI.RAD_ITS ---
Exam(s) XR CHEST 2V PA LATERAL EXAM: XR CHEST 2V PA LATERAL CLINICAL HISTORY: chest pain. TECHNIQUE: 2D digital imaging was performed. COMPARISON: CR,XR XR CHEST 2V PA LATERAL from 01/16/2025 FINDINGS: 2 views: Heart size is normal. The mediastinum is not widened. Lungs are clear. No infiltrates nor pleural effusions. IMPRESSION: No acute pulmonary findings. DATA REPOSITORY: RADIATION DOSE DELIVERED:
[2025-01-21] MEDS: Lactated Ringers 1,000 ML 1000 ML IV (10:50)
[2025-01-21 11:54] LABS: HCT 28.7 % (40.0-50.0); HGB 8.9 g/dL (13.5-17.5)
[2025-01-21 13:00] LABS: Total Iron Binding Capacity 333 ug/dL (250-450)
[2025-01-21 13:29] LABS: Ferritin 18 ng/mL (26-388); Vitamin B12 378 pg/mL (193-986)
[2025-01-24 09:21] LABS: Lyme Ab w Rflx to Lyme Confirm Negative (Negative)
[2025-01-24 10:54] LABS: Hepatitis A Antibody IgM Negative (Negative); Hepatitis C Ab w Rflx HCV PCR Negative (Negative)
[2025-01-25 13:42] LABS: B. miyamotoi PCR Negative (Negative); Babesia divergens/MO-1 Negative (Negative); Ehrlichia muris eauclairensis Negative (Negative)
== END 2025-01-21 13:22 | disposition home or self-care (01) ==
PROVIDERS: Emergency Provider Physician Assistant; PCP Family Medicine
DX: R07.9 Chest pain, unspecified (principal); D64.9 Anemia, unspecified
CPT/HCPCS: 99285; 99284; 36415; 80053; 83690; 86704; 86709; 86803; 87340; 87637; 87798; 93005; 96360; 71046; 81003; 82607; 82728; 83550; 83735; 84443; 84484; 85014; 85018; 85025; 85045; 85379; 86618; 93010

== ENCOUNTER 2025-01-24 07:44 | Emergency (ER) | payer OTHER, SELFPAY ==
--- NOTE | 2025-01-24 07:45 | RT.EKG_ITS ---
APPROVED REPORT Exam: Resting ECG Reason for Exam: Dizziness Patient Location: E HR:85 bpm ECG Measurements Heart Rate 85 AXIS SC 180 P 28 QRSd 97 QRS 31 QT 366 T 21 QTc 436 Conclusion Sinus rhythm, rate 85 No interval abnormalities Q wave III, unchanged No STEMI No significant changes from priors
[2025-01-24 07:46] VITALS: BP 125/85; PULSE 92; RESP 18; TEMP 36.5; O2SAT 96
--- NOTE | 2025-01-24 08:00 | DI.CT_ITS ---
Exam(s) CT ABDOMEN PELVIS W EXAM: CT ABDOMEN PELVIS W CLINICAL HISTORY: epigastric abd pain, hx MEN1, eval pancreas. TECHNIQUE: Imaging Protocol: Axial computed tomography images with coronal and sagittal reformatted images were created and reviewed CONTRAST MATERIAL: Intravenous: Omnipaque 350 Contrast volume:100 ml Oral: no COMPARISON: CT CT ABDOMEN PELVIS W from 04/19/[address] ABDOMEN PELVIS W from 10/15/[address] ABDOMEN PELVIS WO/W from 08/05/[address] ABDOMEN PELVIS W from 10/02/2024 FINDINGS: ABDOMEN and PELVIS: Lung Bases: No acute findings. Liver: Normal enlarged. Fatty infiltration no suspicious mass. Gallbladder and biliary tract: Cholecystectomy.. No biliary dilation. Pancreas: Somewhat atrophic. No abnormal calcifications or inflammatory process. No evidence of mass. Spleen: Normal. Kidneys: Normal size, contour and axis. No radiodense stones. No obstructive uropathy. No stable appearance of renal hypodensities, not well characterized on the current exam, likely cysts. Adrenal glands: No masses seen. Vasculature: Abdominal aorta non-dilated. Soft tissues: Unremarkable. Bladder: No gross wall thickening. No calculi.No focal mass. Bowel: No obstruction. No bowel wall thickening. Appendix normal. Normal quantity of stool. Peritoneal cavity: No ascites. No focal collection. No mesenteric inflammatory response. No free air. Bones: Unremarkable for age. Reproductive organs: Unremarkable. Lymph nodes: No pathologically enlarged lymph nodes. IMPRESSION:: No acute abnormality in the abdomen or pelvis. The pancreas is somewhat atrophic. No evidence of mass. RADIATION DOSE DELIVERED: 1,855.32mGy.cm Total DLP DATA REPOSITORY: All CT scans at this facility are submitted to the National Radiology Data Registry (NRDR) Dose Index Registry (DIR) with the [employer] ([employer]). RADIATION OPTIMIZATION: All CT scans at this facility use at least one of these dose optimization techniques: automated exposure control; mA and/or kV adjustment per patient size (includes targeted exams where dose is matched to clinical indication); or iterative reconstruction.
--- NOTE | 2025-01-24 08:14 | W.ED.GENAD ---
Discharge Plan Disposition Patient Disposition: Home Condition: Stable Discharge Details Clinical Impression: Anemia, Abdominal pain Primary Care Provider: Brendon Vivar ED Provider: Tere Adams Home Meds and New Rx's Prescriptions: No Action gabapentin 300 mg capsule 300 mg PO BID Qty: 180 3RF omeprazole 40 mg capsule,delayed release(DR/EC) 40 mg PO DAILY Qty: 90 3RF lorazepam 1 mg tablet 1 mg PO DAILY PRN (Reason: anxiety) Qty: 10 0RF Rx Instructions: Use when considering ER visit clonazepam 1 mg tablet 1 mg PO BID Qty: 56 2RF cyclobenzaprine 10 mg tablet 10 mg PO TID PRN (Reason: muscle spasm) Qty: 30 3RF methadone 10 mg/5 mL solution 100 mg PO QAM calcitriol 0.5 mcg capsule 1 mcg PO .COMPLEX Qty: 270 3RF Rx Instructions: 1 mcg orally t2 tabs qam and 1 tab QHS; calcium carbonate [Tums] 200 mg calcium (500 mg) tablet,chewable 2,000 mg PO BID prochlorperazine maleate 5 mg tablet 5 mg PO TID PRN (Reason: acute nausea) Qty: 30 0RF polyethylene glycol 3350 17 gram powder in packet 17 g PO BID PRN magnesium gluconate 27 mg magnesium (500 mg) tablet 13.5 mg PO TID Qty: 60 3RF Discharge Instructions Instructions: Abdominal Pain, Adult ED Additional Instructions: You were seen in the emergency department today for evaluation of abdominal pain and dizziness. In our department a full physical examination performed, received fluids that helped with your dizziness, and had reassuring laboratory studies. Your hemoglobin is stable and your liver enzymes are improving. Your tickborne illness panel is still pending and your primary care doctor should follow-up on that study. Your CT of your abdomen and pelvis that did not show any changes to account for your symptoms, and specifically we did not know any evidence of mass on your pancreas. Please stay well-hydrated, and please follow-up with your primary care provider in the next few days to discuss this visit and any symptoms that change, worsen, or persist. Thank you for allowing us to be part of your care. Discharge Data Discharge Date/Time-TO BE ENTERED AT DEPARTURE: 01/24/25 10:08 HPI General Mode of arrival: ambulatory. Date/Time Provider Initiated Documentation: 01/24/25 07:55. Limitations to Documentation: no limitations. Information obtained by: patient. HPI Narrative: This is a 29-year-old male patient with history of MEN, IBS, fatty liver disease, who is presenting for evaluation of left upper quadrant and epigastric abdominal pain and dizziness. The patient reports that his dizziness started yesterday, he was recently seen in the hospital and noted to have a low hemoglobin, and was cautioned to return if he did develop dizziness. He reports he has not noted any external sources of blood loss such as hematuria, nor blood in his stool. The patient reports that his dizziness is fairly constant and does not seem to be associated with position changes. Is not vertiginous. The patient also reports several months of gradually worsening left upper quadrant and epigastric abdominal pain. He reports that he is specifically very concerned about tumors in his pancreas given his history of MEN, states that the pain is slightly worse after eating but does not seem to be worse with palpation. There is no associated nausea with vomiting, dysuria, diarrhea. Has been taking all of his medications at home as prescribed. Does not have difficulty maintaining his hydration. Has a history of of cholecystectomy. Related Data Home Medications ?Medication ?Instructions ?Recorded ?Confirmed calcium carbonate (Tums) 2,000 mg PO BID 02/02/23 01/24/25 methadone 10 mg/5 mL oral solution 100 mg PO QAM 06/12/23 01/24/25 prochlorperazine maleate 5 mg 5 mg PO TID PRN acute nausea #30 09/06/23 01/24/25 tablet tabs magnesium gluconate 27 mg 13.5 mg (1/2 x 27 mg magnesium 11/21/23 01/24/25 magnesium (500 mg) tablet (500 mg)) PO TID #60 tabs gabapentin 300 mg capsule 300 mg PO BID #180 caps 06/01/24 01/24/25 calcitriol 0.5 mcg capsule 1 mcg (2 x 0.5 mcg) PO .COMPLEX 06/29/24 01/24/25 #270 caps omeprazole 40 mg capsule,delayed 40 mg PO DAILY #90 caps 07/27/24 01/24/25 release polyethylene glycol 3350 17 gram 17 g PO BID PRN 10/15/24 01/24/25 oral powder packet lorazepam 1 mg tablet 1 mg PO DAILY PRN anxiety #10 tabs 10/19/24 01/24/25 clonazepam 1 mg tablet 1 mg PO BID #56 tabs 11/16/24 01/24/25 cyclobenzaprine 10 mg tablet 10 mg PO TID PRN muscle spasm #30 11/16/24 01/24/25 tabs Previous Rx's ?Medication ?Instructions ?Recorded prochlorperazine maleate 5 mg 5 mg PO TID PRN acute nausea #30 09/06/23 tablet tabs magnesium gluconate 27 mg 13.5 mg (1/2 x 27 mg magnesium 11/21/23 magnesium (500 mg) tablet (500 mg)) PO TID #60 tabs gabapentin 300 mg capsule 300 mg PO BID #180 caps 06/01/24 calcitriol 0.5 mcg capsule 1 mcg (2 x 0.5 mcg) PO .COMPLEX 06/29/24 #270 caps omeprazole 40 mg capsule,delayed 40 mg PO DAILY #90 caps 07/27/24 release lorazepam 1 mg tablet 1 mg PO DAILY PRN anxiety #10 tabs 10/19/24 clonazepam 1 mg tablet 1 mg PO BID #56 tabs 11/16/24 cyclobenzaprine 10 mg tablet 10 mg PO TID PRN muscle spasm #30 11/16/24 tabs Allergies Allergy/AdvReac Type Severity Reaction Status Date / Time codeine Allergy Intermediate pass out Verified 01/24/25 07:48 Penicillins Allergy Skin Rash Verified 01/24/25 07:48 marijuana (cannabis) AdvReac Severe Paranoia Verified 01/24/25 07:48 amoxicillin AdvReac Intermediate Nausea Verified 01/24/25 07:48 dextromethorphan (From AdvReac Intermediate got Verified 01/24/25 07:48 NyQuil) really hot and sweaty doxylamine (From NyQuil) AdvReac Intermediate got Verified 01/24/25 07:48 really hot and sweaty pseudoephedrine (From NyQuil) AdvReac Intermediate got Verified 01/24/25 07:48 really hot and sweaty General Stated Complaint: Dizzy/Sync ADRIANA: 3 Exam Narrative Exam Narrative: Gen: Awake and alert, in no apparent distress HEENT: Non-icteric sclera Neck: Supple Lungs: No apparent respiratory distress, normal respiratory effort. CV: Appears well perfused, heart with regular rate and rhythm, strong distal pulses Abdomen: Non-distended, soft, minimal tenderness to palpation over the left upper quadrant and epigastric region without rigidity, rebound, or guarding MSK: Moves 4 extremities without apparent limitation in ROM. No peripheral edema Skin: Visualized skin without rashes, cyanosis. Neuro: Normal Gait, no obvious focal deficits or facial asymmetry. Speaks in full, clear sentences. Psych: Appropriate for situation. Course Vital Signs Vital signs: Vital Signs Temperature 36.5 C 01/24/25 07:46 Pulse 92 H 01/24/25 07:46 Respiratory Rate 18 01/24/25 07:46 Blood Pressure 125/85 01/24/25 07:46 Pulse Oximetry 96 01/24/25 07:46 Temperature 36.5 C 01/24/25 07:46 Temperature Source Oral 01/24/25 07:46 Pulse 92 H 01/24/25 07:46 Respiratory Rate 18 01/24/25 07:46 Blood Pressure 125/85 01/24/25 07:46 Pulse Oximetry 96 01/24/25 07:46 Oxygen Delivery Method Room Air 01/24/25 07:46 Oxygen Flow Rate 0 01/24/25 07:46 Medical Decision Making This is a 29-year-old male patient presenting for evaluation of dizziness, as well as left upper quadrant abdominal pain. My differential includes, but is not limited to, gastritis/PUD, gastroenteritis, pancreatitis, pancreatic mass/malignancy, choledocholithiasis, hepatitis, appendicitis, diverticulitis, small bowel obstruction. Considered mesenteric ischemia, aortic pathology, though this is less concerning based on the patient's history and physical exam. No chest pain to suggest ACS. Considered arrhythmia, metabolic and electrolyte derangement, dehydration, anemia. I obtained and reviewed an EKG, which shows a sinus rhythm with a rate of 85, with no interval abnormalities, ectopy, or significant changes when compared to priors. Will obtain laboratory studies to include CBC, CMP, magnesium, troponin, and lipase. I will obtain a CT abdomen pelvis with contrast to better characterize any abnormalities which might be contributing to the patient's symptoms. Will provide him with a liter of IV fluids for rehydration. - I independently interpreted the laboratory studies, which show no significant leukocytosis or thrombocytopenia. The patient's hemoglobin is 9.2 today, slightly increased from his most recent, and certainly within the range of the patient's normal compared to priors. The chemistry panel is without evidence of electrolyte abnormality, significant kidney dysfunction, or liver injury. In fact, the patient's LFTs are downtrending compared to priors. Troponin was negative and the lipase is low. CT scan reviewed by myself, showing no pancreatic masses or other abnormalities to explain the patient's symptoms. I shared the findings with the patient who reports significant relief, states that he is worried that he was too dehydrated and states he feels slightly improved after fluids. At this time, the patient has had a full medical evaluation and is safe for discharge to home. They are hemodynamically stable, ambulatory, and tolerating PO. They are understanding of the follow-up plan and return precautions. They left our facility without incident. Tere Adams MD Quality:SDOH Health Related Social Needs: Health related social needs daily activities PFSH All Active Problems (Updated 01/24/25 @ 09:58 by Tere Adams MD) Abdominal pain (Acute) Anemia (Chronic) Chest pain of uncertain etiology (Acute) Upper respiratory infection, viral (Acute) Cough (Acute) Pharyngitis (Acute) Heart palpitations (Acute) Dysphagia (Acute) Elevated blood uric acid level (Acute) Obstructive sleep apnea (Chronic) Metabolic dysfunction-associated fatty liver disease (MAFLD) (Acute) Fatty liver (Acute) IBS (irritable bowel syndrome) (Chronic) Obesity (Chronic) Migraine with aura (Acute) Testicle lump (Acute) Pes anserine bursitis (Acute) Left-sided Flower's palsy (Acute) Opiate dependence, continuous (Acute) 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 Possible 2' Methadone, Clnzpm (?). Surg eval (+)/No further action. History of electrolyte imbalance (Acute) Neck pain on left side (Acute) with shoulder, upper back pain.. torticollis, radiating into left hip/leg Pulmonary nodule 1 cm or greater in diameter (Chronic) Therapeutic opioid induced constipation (Acute) Sphincter of Oddi dysfunction (Chronic) Abnormal CT scan, kidney (Acute) Intrahepatic bile duct dilation (Acute) Common bile duct dilatation (Chronic) Has been dilated for quite some time, now more-so. Normal LFTs. Known gallstones. Depression (Chronic) Elevated parathyroid hormone (Acute) Family history of coronary arteriosclerosis (Chronic) Father of [place] at 50, mother had [place] at 42 Severe anxiety with panic (Chronic) Medical History Multiple endocrine neoplasia type I CKD (chronic kidney disease) stage 2, GFR 60-89 ml/min GFR 64-65, with Hx FLORESITA and GFR < 45 Primary hyperparathyroidism Complex medical condition Serious electrolyte imbalances, with gynecomastia, possible MEN Dx, CKD and anemia with baseline anxiety and Hx PTSD. Hypocalcemia Anxiety Depression Hyperlipidemia Family history of multiple endocrine neoplasia, type 1 PTSD (post-traumatic stress disorder) Per pt. states no triggers at this time. Surgical History History of laparoscopic cholecystectomy (~11/2023) H/O parathyroidectomy Family History Mother Anxiety Asthma Depression Sister Anxiety Depression Father Cancer lung & stomach Depression Diabetes Hypertension MEN 1 (multiple endocrine neoplasia) Social History Smoking/Tobacco Use Status: Never Smoking risk assessment performed?: Yes Alcohol Intake: never Drug use: Current Sobriety Substance use type: former substance user, crack/cocaine, heroin and painkillers Details: stopped using substances for the past 4 years Adopted: No Caregiver/Support person: No Foster care: No Household members: none Housing: apartment Number of Children: 0 Communication Needs: None Education Level: high school Do you need help understanding health information?: Never current occupation: [employer] Pets and animals: Yes (Ally) Pets and animals: dog(s) Sexually active: No Do you think of yourself as: straight/heterosexual Current gender identity: male What is your relationship status?: How often do you talk on the phone with friends or family?: twice per week How often do you get together with friends or relatives?: never Do you belong to any clubs or organized social groups?: no Panel score (0-1 are the most socially isolated patients): 0 What type of physical activity do you participate in: walking Duration: 15-30 minutes/day Frequency: 5-6 times per week Maryam/Adventism: Congregational Special maryam needs: No Seatbelt use: always Helmet use: Yes Helmet use: always Drive intox or ride w/intox entry driver operator: No Do you feel safe at home: Yes Do you feel safe in your relationship?: Yes
[2025-01-24] MEDS: Lactated Ringers 1,000 ML 1000 ML IV (08:32)
[2025-01-24 08:41] LABS: Abs Immature Grans 0.05 10^3/uL (0.0-0.06); HCT 30.0 % (40.0-50.0); HGB 9.2 g/dL (13.5-17.5); Immature Grans % 0.6 %; MCH 26.0 pg (27.0-33.0); MCHC 30.7 % (32.0-36.0); MCV 85 fL (80-95); MPV 10.0 fL (8.0-11.0); Platelet Count 374 10^3/uL (130-400); RBC 3.54 10^6/uL (4.36-5.78); RDW 15.8 % (11.8-14.1); RDW-SD 47.8 fL; WBC 8.74 10^3/uL (4.4-10.8)
[2025-01-24 08:47] LABS: Lipase 28 U/L (<78)
[2025-01-24 08:56] LABS: ALT 67 U/L (16-63); AST 34 U/L (15-37); Albumin 2.8 g/dL (3.4-5.0); Alkaline Phosphatase 174 U/L (46-116); Anion Gap 4.0 mmol/L (3-11); BUN 11 mg/dL (7-18); Bilirubin, Total 0.2 mg/dL (0.2-1.0); CO2 35.0 mmol/L (21.0-32.0); Calcium 9.3 mg/dL (8.5-10.1); Chloride 102 mmol/L (98-107); Estimated GFR 68.91 (mL/min/1.73m2); Glucose 100 mg/dL (74-106); Magnesium 2.1 mg/dL (1.8-2.4); Potassium 3.9 mmol/L (3.5-5.1); Sodium 141 mmol/L (136-145); Total Protein 7.5 g/dL (6.4-8.2); Troponin I 4 ng/L (<or=76)
[2025-01-24] MEDS: Normal Saline - Diluent 50 ML VIAL IJ (09:08)
[2025-01-24] MEDS: Omnipaque 350 MG/ML 500 ML BTL-Imaging package 100 ML IJ (09:09)
[2025-01-24 09:29] VITALS: BP 102/51; PULSE 83; RESP 20; O2SAT 97
[2025-01-24 10:06] VITALS: RESP 18
== END 2025-01-24 10:08 | disposition home or self-care (01) ==
PROVIDERS: Emergency Provider Emergency Medicine; PCP Family Medicine
DX: R10.12 Left upper quadrant pain (principal); D64.9 Anemia, unspecified; R42 Dizziness and giddiness; R10.13 Epigastric pain
CPT/HCPCS: 36415; 80053; 83690; 93005; 96360; 99285; 74177; 83735; 84484; 85025; 93010; 99283

== ENCOUNTER 2025-01-30 08:32 | Emergency (ER) | payer MEDICAID, SELFPAY ==
[2025-01-30] VITALS (13 sets, daily range): BP systolic 112–120; BP diastolic 48–79; PULSE 78–96; RESP 13–23; TEMP 36.9; O2SAT 92–95
--- NOTE | 2025-01-30 08:30 | RT.EKG_ITS ---
APPROVED REPORT Exam: Resting ECG Reason for Exam: palpitations Patient Location: E HR:90 bpm ECG Measurements Heart Rate 90 AXIS LA 180 P 56 QRSd 96 QRS 37 QT 369 T 35 QTc 453 Conclusion Sinus rhythm...normal P axis, V-rate 60- 99 No STEMI
--- NOTE | 2025-01-30 08:49 | W.ED.GENAD ---
Discharge Plan Disposition Patient Disposition: Home Discharge Details Clinical Impression: Well adult health check, Anemia Primary Care Provider: Brendon Vivar ED Provider: Jamir Matson Home Meds and New Rx's Prescriptions: Continued gabapentin 300 mg capsule 300 mg PO BID Qty: 180 3RF omeprazole 40 mg capsule,delayed release(DR/EC) 40 mg PO DAILY Qty: 90 3RF lorazepam 1 mg tablet 1 mg PO DAILY PRN (Reason: anxiety) Qty: 10 0RF Rx Instructions: Use when considering ER visit clonazepam 1 mg tablet 1 mg PO BID Qty: 56 2RF cyclobenzaprine 10 mg tablet 10 mg PO TID PRN (Reason: muscle spasm) Qty: 30 3RF methadone 10 mg/5 mL solution 100 mg PO QAM calcitriol 0.5 mcg capsule 1 mcg PO .COMPLEX Qty: 270 3RF Rx Instructions: 1 mcg orally t2 tabs qam and 1 tab QHS; calcium carbonate [Tums] 200 mg calcium (500 mg) tablet,chewable 2,000 mg PO BID prochlorperazine maleate 5 mg tablet 5 mg PO TID PRN (Reason: acute nausea) Qty: 30 0RF polyethylene glycol 3350 17 gram powder in packet 17 g PO BID PRN magnesium gluconate 27 mg magnesium (500 mg) tablet 500 mg PO BID Rx Instructions: takes 500mg QAM and 1000mg QHS Discharge Instructions Instructions: Muscle Spasm ED Additional Instructions: Please follow-up with your primary care provider regarding your visit to the emergency department today. Be sure to discuss results of all test performed here today to include radiology, and laboratory testing as well as results for any pending cultures. Should your symptoms worsen, or if you develop new concerning symptoms, please return immediately emergency department for further evaluation. HPI General Date/Time Provider Initiated Documentation: 01/30/25 08:33. HPI Narrative: 29-year-old male with a past medical history to include anxiety, M EN 1, status post [place] thyroid resection, cholecystectomy, presents for evaluation of concern for abnormal electrolytes. Patient notes that previously he has had elevated as well as decreased levels of magnesium and calcium, which have variable presentations. He notes that today he woke up feeling thirsty, flushed, and short of breath which is consistent with how he is felt in the past when he has been having elevated magnesium levels. He also notes feeling like he is peeing more frequently and that although he is able to void nearly an entire bladder full, he is noting several minutes later that he has a small amount that he needs to again go to the bathroom to expel. He denies any associated fever, abdominal pain, nausea, vomiting, or any other new or concerning symptoms. Related Data Home Medications ?Medication ?Instructions ?Recorded ?Confirmed calcium carbonate (Tums) 2,000 mg PO BID 02/02/23 01/30/25 methadone 10 mg/5 mL oral solution 100 mg PO QAM 06/12/23 01/30/25 prochlorperazine maleate 5 mg 5 mg PO TID PRN acute nausea #30 09/06/23 01/30/25 tablet tabs gabapentin 300 mg capsule 300 mg PO BID #180 caps 06/01/24 01/30/25 calcitriol 0.5 mcg capsule 1 mcg (2 x 0.5 mcg) PO .COMPLEX 06/29/24 01/30/25 #270 caps omeprazole 40 mg capsule,delayed 40 mg PO DAILY #90 caps 07/27/24 01/30/25 release polyethylene glycol 3350 17 gram 17 g PO BID PRN 10/15/24 01/30/25 oral powder packet lorazepam 1 mg tablet 1 mg PO DAILY PRN anxiety #10 tabs 10/19/24 01/30/25 clonazepam 1 mg tablet 1 mg PO BID #56 tabs 11/16/24 01/30/25 cyclobenzaprine 10 mg tablet 10 mg PO TID PRN muscle spasm #30 11/16/24 01/30/25 tabs magnesium gluconate 27 mg 500 mg PO BID 01/30/25 01/30/25 magnesium (500 mg) tablet Previous Rx's ?Medication ?Instructions ?Recorded prochlorperazine maleate 5 mg 5 mg PO TID PRN acute nausea #30 09/06/23 tablet tabs gabapentin 300 mg capsule 300 mg PO BID #180 caps 06/01/24 calcitriol 0.5 mcg capsule 1 mcg (2 x 0.5 mcg) PO .COMPLEX 06/29/24 #270 caps omeprazole 40 mg capsule,delayed 40 mg PO DAILY #90 caps 07/27/24 release lorazepam 1 mg tablet 1 mg PO DAILY PRN anxiety #10 tabs 10/19/24 clonazepam 1 mg tablet 1 mg PO BID #56 tabs 11/16/24 cyclobenzaprine 10 mg tablet 10 mg PO TID PRN muscle spasm #30 11/16/24 tabs Allergies Allergy/AdvReac Type Severity Reaction Status Date / Time codeine Allergy Intermediate pass out Verified 01/30/25 08:36 Penicillins Allergy Skin Rash Verified 01/30/25 08:36 marijuana (cannabis) AdvReac Severe Paranoia Verified 01/30/25 08:36 amoxicillin AdvReac Intermediate Nausea Verified 01/30/25 08:36 dextromethorphan (From AdvReac Intermediate got Verified 01/30/25 08:36 NyQuil) really hot and sweaty doxylamine (From NyQuil) AdvReac Intermediate got Verified 01/30/25 08:36 really hot and sweaty pseudoephedrine (From NyQuil) AdvReac Intermediate got Verified 01/30/25 08:36 really hot and sweaty General Stated Complaint: GenMedical ADRIANA: 3 Review of Systems All systems reviewed & are unremarkable except as noted in HPI and below Exam Narrative Exam Narrative: Gen: A&O NAD HEENT: NCAT, EOMI, not icteric. External ears normal. No rhinorrhea. Moist mucous membranes. Neck: Supple, full range of motion, no observable masses, No meningeal sign. Lungs: No Respiratory distress. CV: RRR, no edema. Abdomen: Soft, nondistended, No rebound tenderness. MSK: No joint swelling, no redness. Skin: No rashes, petechiae, lesions. Normal color per patient. Neuro: Normal Gait, Grossly intact. Psych: Appropriate for situation. Course Reevaluation(s) Reevaluation: On reevaluation patient is resting comfortably, denies any acute complaints. Shared results with the patient who is agreeable to plan for discharge to follow-up primary care Time: 10:15 Vital Signs Vital signs: Vital Signs Temperature 36.9 C 01/30/25 08:34 Pulse 96 H 01/30/25 08:34 Respiratory Rate 16 01/30/25 08:34 Blood Pressure 120/78 01/30/25 08:34 Pulse Oximetry 94 01/30/25 08:34 Temperature 36.9 C 01/30/25 08:34 Temperature Source Oral 01/30/25 08:34 Pulse 96 H 01/30/25 08:34 Respiratory Rate 16 01/30/25 08:34 Blood Pressure 120/78 01/30/25 08:34 Pulse Oximetry 94 01/30/25 08:34 Oxygen Delivery Method Room Air 01/30/25 08:34 Oxygen Flow Rate 0 01/30/25 08:34 Pain Level 0 01/30/25 08:34 Lab/Test Results Lab/Test Results: Laboratory Tests Range/Units 01/30/25 01/30/25 08:50 09:12 WBC (4.4-10.8) 10^3/uL 7.42 RBC (4.36-5.78) 10^6/uL 3.59 L Hgb (13.5-17.5) g/dL 9.5 L Hct (40.0-50.0) % 30.7 L MCV (80-95) fL 86 MCH (27.0-33.0) pg 26.5 L MCHC (32.0-36.0) % 30.9 L RDW (11.8-14.1) % 15.6 H Plt Count (130-400) 10^3/uL 372 MPV (8.0-11.0) fL 10.0 Immature Gran % % 0.4 Neutrophils % % 65.2 Lymphocytes % % 23.5 Monocytes % % 7.8 Eosinophils % % 2.7 Basophils % % 0.4 Nucleated RBC % (0.0-0.3) % 0.0 Absolute Neutrophils (1.2-6.7) 10^3/uL 4.84 Absolute Lymphocytes (1.2-3.4) 10^3/uL 1.74 Absolute Monocytes (0.1-0.8) 10^3/uL 0.58 Absolute Eosinophils (0.0-0.7) 10^3/uL 0.20 Absolute Basophils (0.0-0.2) 10^3/uL 0.03 Sodium (136-145) mmol/L 141 Potassium (3.5-5.1) mmol/L 3.5 Chloride (98-107) mmol/L 101 Carbon Dioxide (21.0-32.0) mmol/L 32.4 H Anion Gap (3-11) mmol/L 7.6 BUN (7-18) mg/dL 10 Creatinine (0.70-1.30) mg/dL 1.6 H Est GFR (CKD-EPI 2020) (mL/min/1.73m2) 58.71 Glucose (74-106) mg/dL 110 H Calcium (8.5-10.1) mg/dL 9.4 Magnesium (1.8-2.4) mg/dL 1.9 Total Bilirubin (0.2-1.0) mg/dL 0.2 AST (15-37) U/L 27 ALT (16-63) U/L 44 Alkaline Phosphatase (46-116) U/L 172 H Total Protein (6.4-8.2) g/dL 7.8 Albumin (3.4-5.0) g/dL 2.9 L Urine Color (Yellow) Yellow Urine Clarity (Clear) Clear Urine pH (5-8) 7.0 Ur Specific [place] (1.005-1.025) 1.015 Urine Protein (Neg-Trace) mg/dL Negative Urine Ketones (Negative) mg/dL Negative Urine Blood (Negative) Negative Urine Nitrite (Negative) Negative Urine Bilirubin (Negative) Negative Urine Urobilinogen (Up to 0.2) mg/dL 0.2 Ur Leukocyte Esterase (Negative) Negative Urine Glucose (Negative) mg/dL Negative Medical Decision Making Patient presents as above. Vital signs of normal limits. EKG without evidence of acute ischemia, or suggestive of electrolyte abnormality. Chart review shows that this patient is very well-known to the emergency department, with multiple prior presentations for similar complaints. Suspect likely symptoms are most consistent with patient's chronic anxiety, however given his known history of prior electrolyte disturbances will obtain screening labs to include CBC, CMP, magnesium and continue patient on cardiac telemetry during his visit here. Suspect patient will be able to discharge back home to follow-up with his primary care provider however if significant abnormalities are found on blood work we will consider expansion of differential and potential admission. ECG Data Interpretation: Rhythm: NSR Rate: 90 bpm [place]: Normal axis Intervals: Normal intervals Other findings: No acute ST segment or T wave changes to suggest acute ischemia. Quality:SDOH Health Related Social Needs: Health related social needs daily activities PFSH All Active Problems (Updated 01/30/25 @ 10:17 by Jamir Matson MD) Well adult health check (Acute) Abdominal pain (Acute) Anemia (Chronic) Chest pain of uncertain etiology (Acute) Upper respiratory infection, viral (Acute) Cough (Acute) Pharyngitis (Acute) Heart palpitations (Acute) Dysphagia (Acute) Obstructive sleep apnea (Chronic) Metabolic dysfunction-associated fatty liver disease (MAFLD) (Acute) Fatty liver (Acute) IBS (irritable bowel syndrome) (Chronic) Obesity (Chronic) Migraine with aura (Acute) Testicle lump (Acute) Pes anserine bursitis (Acute) Left-sided Flower's palsy (Acute) Opiate dependence, continuous (Acute) 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 Possible 2' Methadone, Clnzpm (?). Surg eval (+)/No further action. History of electrolyte imbalance (Acute) Neck pain on left side (Acute) with shoulder, upper back pain.. torticollis, radiating into left hip/leg Pulmonary nodule 1 cm or greater in diameter (Chronic) Therapeutic opioid induced constipation (Acute) Sphincter of Oddi dysfunction (Chronic) Abnormal CT scan, kidney (Acute) Intrahepatic bile duct dilation (Acute) Common bile duct dilatation (Chronic) Has been dilated for quite some time, now more-so. Normal LFTs. Known gallstones. Depression (Chronic) Elevated parathyroid hormone (Acute) Family history of coronary arteriosclerosis (Chronic) Father of LA at 50, mother had LA at 42 Severe anxiety with panic (Chronic) Medical History Multiple endocrine neoplasia type I CKD (chronic kidney disease) stage 2, GFR 60-89 ml/min GFR 64-65, with Hx FLORESITA and GFR < 45 Primary hyperparathyroidism Complex medical condition Serious electrolyte imbalances, with gynecomastia, possible MEN Dx, CKD and anemia with baseline anxiety and Hx PTSD. Hypocalcemia Anxiety Depression Hyperlipidemia Family history of multiple endocrine neoplasia, type 1 PTSD (post-traumatic stress disorder) Per pt. states no triggers at this time. Surgical History History of laparoscopic cholecystectomy (~11/2023) H/O parathyroidectomy Family History Mother Anxiety Asthma Depression Sister Anxiety Depression Father Cancer lung & stomach Depression Diabetes Hypertension MEN 1 (multiple endocrine neoplasia) Social History Smoking/Tobacco Use Status: Never Smoking risk assessment performed?: Yes Alcohol Intake: never Drug use: Current Sobriety Substance use type: former substance user, crack/cocaine, heroin and painkillers Details: stopped using substances for the past 4 years Adopted: No Caregiver/Support person: No Foster care: No Household members: none Housing: apartment Number of Children: 0 Communication Needs: None Education Level: high school Do you need help understanding health information?: Never current occupation: [employer] Pets and animals: Yes (Ally) Pets and animals: dog(s) Sexually active: No Do you think of yourself as: straight/heterosexual Current gender identity: male What is your relationship status?: How often do you talk on the phone with friends or family?: twice per week How often do you get together with friends or relatives?: never Do you belong to any clubs or organized social groups?: no Panel score (0-1 are the most socially isolated patients): 0 What type of physical activity do you participate in: walking Duration: 15-30 minutes/day Frequency: 5-6 times per week Maryam/Yarsani: Zoroastrian Special maryam needs: No Seatbelt use: always Helmet use: Yes Helmet use: always 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
[2025-01-30 09:04] LABS: Abs Immature Grans 0.03 10^3/uL (0.0-0.06); HCT 30.7 % (40.0-50.0); HGB 9.5 g/dL (13.5-17.5); Immature Grans % 0.4 %; MCH 26.5 pg (27.0-33.0); MCHC 30.9 % (32.0-36.0); MCV 86 fL (80-95); MPV 10.0 fL (8.0-11.0); Platelet Count 372 10^3/uL (130-400); RBC 3.59 10^6/uL (4.36-5.78); RDW 15.6 % (11.8-14.1); RDW-SD 48.3 fL; WBC 7.42 10^3/uL (4.4-10.8)
[2025-01-30 09:18] LABS: Glucose Negative (Negative)
[2025-01-30 09:26] LABS: ALT 44 U/L (16-63); AST 27 U/L (15-37); Albumin 2.9 g/dL (3.4-5.0); Alkaline Phosphatase 172 U/L (46-116); Anion Gap 7.6 mmol/L (3-11); BUN 10 mg/dL (7-18); Bilirubin, Total 0.2 mg/dL (0.2-1.0); CO2 32.4 mmol/L (21.0-32.0); Calcium 9.4 mg/dL (8.5-10.1); Chloride 101 mmol/L (98-107); Estimated GFR 58.71 (mL/min/1.73m2); Glucose 110 mg/dL (74-106); Magnesium 1.9 mg/dL (1.8-2.4); Potassium 3.5 mmol/L (3.5-5.1); Sodium 141 mmol/L (136-145); Total Protein 7.8 g/dL (6.4-8.2)
== END 2025-01-30 10:47 | disposition home or self-care (01) ==
PROVIDERS: Emergency Provider General Practice; PCP Family Medicine
DX: D64.9 Anemia, unspecified (principal); R00.2 Palpitations; F41.9 Anxiety disorder, unspecified
CPT/HCPCS: 99284; 99283; 36415; 80053; 93005; 81003; 83735; 85025; 93010

== ENCOUNTER 2025-02-03 07:30 | Emergency (ER) | payer OTHER, SELFPAY ==
[2025-02-03] VITALS (20 sets, daily range): BP systolic 121–157; BP diastolic 56–84; PULSE 71–100; RESP 10–38; TEMP 36.7; O2SAT 90–99
--- NOTE | 2025-02-03 07:30 | RT.EKG_ITS ---
APPROVED REPORT Exam: Resting ECG Reason for Exam: chest pain Patient Location: E HR:103 bpm ECG Measurements Heart Rate 103 AXIS [place] 164 P 53 QRSd 99 QRS 68 QT 363 T 22 QTc 475 Conclusion Sinus tachycardia...rate> 99 No Occlusion RI
--- NOTE | 2025-02-03 08:30 | DI.RAD_ITS ---
Exam(s) XR CHEST 2V PA LATERAL EXAM: XR CHEST 2V PA LATERAL CLINICAL HISTORY: cough, productive. TECHNIQUE: 2D digital imaging was performed. COMPARISON: CR XR CHEST 2V PA LATERAL from 01/21/2025 FINDINGS: 2 views: Heart size is normal. The mediastinum is not widened. Lungs are clear. No infiltrates nor pleural effusions. IMPRESSION: No acute pulmonary findings. DATA REPOSITORY: RADIATION DOSE DELIVERED:
--- NOTE | 2025-02-03 09:02 | W.ED.GENAD ---
Discharge Plan Disposition Patient Disposition: Home Condition: Stable Discharge Details Clinical Impression: Bronchitis Primary Care Provider: Brendon Vivar ED Provider: Richy Oakes Home Meds and New Rx's Prescriptions: New doxycycline hyclate 100 mg capsule 100 mg PO BID 5 Days Qty: 10 0RF diclofenac sodium 1 % gel 2 g topical QID Qty: 50 0RF Rx Instructions: apply to single elbow, wrist or hand; for hand includes palm/fingers/back of hand Continued gabapentin 300 mg capsule 300 mg PO BID Qty: 180 3RF omeprazole 40 mg capsule,delayed release(DR/EC) 40 mg PO DAILY Qty: 90 3RF lorazepam 1 mg tablet 1 mg PO DAILY PRN (Reason: anxiety) Qty: 10 0RF Rx Instructions: Use when considering ER visit clonazepam 1 mg tablet 1 mg PO BID Qty: 56 2RF cyclobenzaprine 10 mg tablet 10 mg PO TID PRN (Reason: muscle spasm) Qty: 30 3RF methadone 10 mg/5 mL solution 100 mg PO QAM calcitriol 0.5 mcg capsule 1 mcg PO .COMPLEX Qty: 270 3RF Rx Instructions: 1 mcg orally t2 tabs qam and 1 tab QHS; calcium carbonate [Tums] 200 mg calcium (500 mg) tablet,chewable 2,000 mg PO BID prochlorperazine maleate 5 mg tablet 5 mg PO TID PRN (Reason: acute nausea) Qty: 30 0RF polyethylene glycol 3350 17 gram powder in packet 17 g PO BID PRN magnesium gluconate 27 mg magnesium (500 mg) tablet 500 mg PO BID Rx Instructions: takes 500mg QAM and 1000mg QHS Discharge Instructions Instructions: Diclofenac (Topical), Doxycycline, Bronchitis, Adult ED Additional Instructions: You were seen in the emergency department for your cough for the past 3 weeks, you state you are coughing up green sputum, it is reasonable to treat you for bacterial bronchitis with this onset. Have sent doxycycline to your pharmacy, for your right-sided musculoskeletal chest pain you can trial topical diclofenac which is also prescribed to you, take Tylenol and Motrin as needed, please return for any severe acute worsening of her chest pain especially with sweating, dizziness, shortness of breath, use your at home inhaler every 2-4 hours as needed for symptomatic shortness of breath, please return for any respiratory distress or other emergent concerns. Referrals: Brendon Vivar DO [Primary Care Provider, Medicine] Discharge Data Discharge Date/Time-TO BE ENTERED AT DEPARTURE: 02/03/25 09:24 HPI General Date/Time Provider Initiated Documentation: 02/03/25 08:23. HPI Narrative: 29 year-old male presents to ED today by POV/ambulating with a chief complaint of cough for 3 weeks, feels like he has strained his chest wall from coughing, producing yellow/green sputum, feels fatigued with some R shoulder pain as well with onset 3 weeks ago. Quality described as URI symptoms, cough, fatigue, generalized congestion, no radiation to chest pain with exertion, shortness of breath, diaphoresis, nausea/vomiting, dizziness, near syncope, tingling in hands/feet. Severity is described as mild. Palliating factors include nothing specific attempted. Provoking factors include nothing specific. Patient not anticoagulated. Related Data Home Medications ?Medication ?Instructions ?Recorded ?Confirmed calcium carbonate (Tums) 2,000 mg PO BID 02/02/23 02/03/25 methadone 10 mg/5 mL oral solution 100 mg PO QAM 06/12/23 02/03/25 prochlorperazine maleate 5 mg 5 mg PO TID PRN acute nausea #30 09/06/23 02/03/25 tablet tabs gabapentin 300 mg capsule 300 mg PO BID #180 caps 06/01/24 02/03/25 calcitriol 0.5 mcg capsule 1 mcg (2 x 0.5 mcg) PO .COMPLEX 06/29/24 02/03/25 #270 caps omeprazole 40 mg capsule,delayed 40 mg PO DAILY #90 caps 07/27/24 02/03/25 release polyethylene glycol 3350 17 gram 17 g PO BID PRN 10/15/24 02/03/25 oral powder packet lorazepam 1 mg tablet 1 mg PO DAILY PRN anxiety #10 tabs 10/19/24 02/03/25 clonazepam 1 mg tablet 1 mg PO BID #56 tabs 11/16/24 02/03/25 cyclobenzaprine 10 mg tablet 10 mg PO TID PRN muscle spasm #30 11/16/24 02/03/25 tabs magnesium gluconate 27 mg 500 mg PO BID 01/30/25 02/03/25 magnesium (500 mg) tablet diclofenac sodium 1 % topical gel 2 g topical QID #50 grams 02/03/25 doxycycline hyclate 100 mg capsule 100 mg PO BID 5 days #10 caps 02/03/25 Previous Rx's ?Medication ?Instructions ?Recorded prochlorperazine maleate 5 mg 5 mg PO TID PRN acute nausea #30 09/06/23 tablet tabs gabapentin 300 mg capsule 300 mg PO BID #180 caps 06/01/24 calcitriol 0.5 mcg capsule 1 mcg (2 x 0.5 mcg) PO .COMPLEX 06/29/24 #270 caps omeprazole 40 mg capsule,delayed 40 mg PO DAILY #90 caps 07/27/24 release lorazepam 1 mg tablet 1 mg PO DAILY PRN anxiety #10 tabs 10/19/24 clonazepam 1 mg tablet 1 mg PO BID #56 tabs 11/16/24 cyclobenzaprine 10 mg tablet 10 mg PO TID PRN muscle spasm #30 11/16/24 tabs diclofenac sodium 1 % topical gel 2 g topical QID #50 grams 02/03/25 doxycycline hyclate 100 mg capsule 100 mg PO BID 5 days #10 caps 02/03/25 Allergies Allergy/AdvReac Type Severity Reaction Status Date / Time codeine Allergy Intermediate pass out Verified 02/05/25 16:09 Penicillins Allergy Skin Rash Verified 02/05/25 16:09 marijuana (cannabis) AdvReac Severe Paranoia Verified 02/05/25 16:09 amoxicillin AdvReac Intermediate Nausea Verified 02/05/25 16:09 dextromethorphan (From AdvReac Intermediate got Verified 02/05/25 16:09 NyQuil) really hot and sweaty doxylamine (From NyQuil) AdvReac Intermediate got Verified 02/05/25 16:09 really hot and sweaty pseudoephedrine (From NyQuil) AdvReac Intermediate got Verified 02/05/25 16:09 really hot and sweaty General Stated Complaint: Chest Pain ADRIANA: 3 Review of Systems All systems reviewed & are unremarkable except as noted in HPI and below Exam Narrative Exam Narrative: GENERAL APPEARANCE: Well-nourished, non-toxic, awake and alert, atraumatic, no acute distress. SKIN: Warm, pink, dry, intact, without rashes/lesions/ulcerations. HEAD: Normocephalic, atraumatic, normal hair distribution for gender/age. EYES: Normal conjunctiva, no exudates on lids/lashes. ENT: Nares patent, no circumoral cyanosis, no facial swelling NECK: Supple, trachea midline, painless cervical ROM. LUNGS/CHEST: Lungs CTA bilaterally, non-labored respirations, normal A/P diameter, symmetrical expansion, no chest wall deformity HEART (CV/PV): Regular rate and rhythm without murmur, no peripheral edema, no JVD. ABDOMEN: Soft, non-distended, no guarding. MSK: Normal ROM, no swelling/deformity to bilateral UEs or LEs, moving all extremities without weakness, no cyanosis, spine midline without tenderness, normal curvature. NEURO: Mental Status AAOx4 - alert to person, place, time, events No facial droop, no forehead involvement. Motor: No focal weakness - strength 5/5 in bilateral UEs and LEs, proximal and distal, symmetric. Sensory: sensation intact to light touch globally. Gait normal: patient ambulated without ataxia into ED room. PSYCH: euthymic, cooperative, pleasant, appropriate speech Course Vital Signs Vital signs: Vital Signs Temperature 36.7 C 02/03/25 07:33 Pulse 85 02/03/25 07:33 Respiratory Rate 20 02/03/25 07:33 Blood Pressure 157/80 H 02/03/25 07:33 Pulse Oximetry 95 02/03/25 07:33 Temperature 36.7 C 02/03/25 07:33 Temperature Source Oral 02/03/25 07:33 Pulse 85 02/03/25 07:33 Respiratory Rate 16 02/03/25 07:42 Respiratory Effort Normal 02/03/25 07:42 Respiratory Depth Normal 02/03/25 07:42 Respiratory Pattern Normal 02/03/25 07:42 Blood Pressure 157/80 H 02/03/25 07:33 Pulse Oximetry 95 02/03/25 07:33 Medical Decision Making This dictation utilizes [id number] dictation software and may contain unedited grammatical errors. 29 year-old male presents to ED today by POV/ambulating with a chief complaint of cough for 3 weeks, feels like he has strained his chest wall from coughing, producing yellow/green sputum, feels fatigued with some R shoulder pain as well with onset 3 weeks ago. Quality described as URI symptoms, cough, fatigue, generalized congestion, no radiation to chest pain with exertion, shortness of breath, diaphoresis, nausea/vomiting, dizziness, near syncope, tingling in hands/feet. Severity is described as mild. Palliating factors include nothing specific attempted. Provoking factors include nothing specific. Patients' medical history: M EN type I, CKD, primary hyperparathyroidism, sphincter of Oddi dysfunction, hyperlipidemia, PTSD, anxiety. Family and social history: Denies tobacco use, eats normal diet. Pertinent exam findings / vital signs include lungs CTA, active cough and congestion, benign cardiac exam, benign abdomen, stable vitals. Differential / pathologies of concern include URI, pneumonia, bronchitis. Diagnostic studies of: - POC COVID/flu, chest x-ray, patient declined labs. - Chest x-ray shows no pneumonia - POC COVID flu negative Interventions of: -Rx for empiric bacterial bronchitis with 3 weeks of productive cough, Rx voltaren gel topical. ED Course/Assessment/Plan: 29-year-old male presents with 3 weeks of worsening productive cough and fatigue, feels this is all related to his coughing, he has some straining with cough, is right-sided chest pain is exacerbated by coughing, declines labs today, chest x-ray shows no pneumonia, with 3-week onset is reasonable to treat for empiric bronchitis, advised Voltaren to his right chest wall pain, patient will return for any failure to improve or any worsening chest pain especially shortness of breath, diaphoresis, dizziness, chest pain with exertion. Findings not consistent with ACS, hypoxic respiratory failure, COVID or flu. Disposition of Bronchitis. Patient verbalized understanding of the plan and return to ED criteria and engaged in shared decision making. Medical Records Medical records reviewed: Yes I reviewed the patient's medical records. Imaging Data Radiologic Study: Attestation: I personally reviewed and interpreted this imaging study as follows: Imaging: X-Ray Radiologist's impression: EXAM: XR CHEST 2V PA LATERAL CLINICAL HISTORY: cough, productive. TECHNIQUE: 2D digital imaging was performed. COMPARISON: CR XR CHEST 2V PA LATERAL from 01/21/2025 FINDINGS: 2 views: Heart size is normal. The mediastinum is not widened. Lungs are clear. No infiltrates nor pleural effusions. IMPRESSION: No acute pulmonary findings. Lab Data Lab results reviewed: Yes I reviewed the patient's lab results. Lab results narrative: POC Covid/Flu negative Quality:SDOH Health Related Social Needs: Health related social needs daily activities [facility] All Active Problems (Updated 02/05/25 @ 18:07 by Jamir Matson MD) Acute leg pain (Acute) Bronchitis (Acute) Well adult health check (Acute) Abdominal pain (Acute) Anemia (Chronic) Chest pain of uncertain etiology (Acute) Upper respiratory infection, viral (Acute) Cough (Acute) Pharyngitis (Acute) Heart palpitations (Acute) Obstructive sleep apnea (Chronic) Metabolic dysfunction-associated fatty liver disease (MAFLD) (Acute) Fatty liver (Acute) IBS (irritable bowel syndrome) (Chronic) Obesity (Chronic) Migraine with aura (Acute) Testicle lump (Acute) Pes anserine bursitis (Acute) Left-sided Flower's palsy (Acute) Opiate dependence, continuous (Acute) 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 Possible 2' Methadone, Clnzpm (?). Surg eval (+)/No further action. History of electrolyte imbalance (Acute) Neck pain on left side (Acute) with shoulder, upper back pain.. torticollis, radiating into left hip/leg Pulmonary nodule 1 cm or greater in diameter (Chronic) Therapeutic opioid induced constipation (Acute) Sphincter of Oddi dysfunction (Chronic) Abnormal CT scan, kidney (Acute) Intrahepatic bile duct dilation (Acute) Common bile duct dilatation (Chronic) Has been dilated for quite some time, now more-so. Normal LFTs. Known gallstones. Depression (Chronic) Elevated parathyroid hormone (Acute) Family history of coronary arteriosclerosis (Chronic) Father of [place] at 50, mother had [place] at 42 Severe anxiety with panic (Chronic) Medical History Multiple endocrine neoplasia type I CKD (chronic kidney disease) stage 2, GFR 60-89 ml/min GFR 64-65, with Hx FLORESITA and GFR < 45 Primary hyperparathyroidism Complex medical condition Serious electrolyte imbalances, with gynecomastia, possible MEN Dx, CKD and anemia with baseline anxiety and Hx PTSD. Hypocalcemia Anxiety Depression Hyperlipidemia Family history of multiple endocrine neoplasia, type 1 PTSD (post-traumatic stress disorder) Per pt. states no triggers at this time. Surgical History History of laparoscopic cholecystectomy (~11/2023) H/O parathyroidectomy Family History Mother Anxiety Asthma Depression Sister Anxiety Depression Father Cancer lung & stomach Depression Diabetes Hypertension MEN 1 (multiple endocrine neoplasia) Social History Smoking/Tobacco Use Status: Never Smoking risk assessment performed?: Yes Alcohol Intake: never Drug use: Current Sobriety Substance use type: former substance user, crack/cocaine, heroin and painkillers Details: stopped using substances for the past 4 years Adopted: No Caregiver/Support person: No Foster care: No Household members: none Housing: apartment Number of Children: 0 Communication Needs: None Education Level: high school Do you need help understanding health information?: Never current occupation: [employer] Pets and animals: Yes (Ally) Pets and animals: dog(s) Sexually active: No Do you think of yourself as: straight/heterosexual Current gender identity: male What is your relationship status?: How often do you talk on the phone with friends or family?: twice per week How often do you get together with friends or relatives?: never Do you belong to any clubs or organized social groups?: no Panel score (0-1 are the most socially isolated patients): 0 What type of physical activity do you participate in: walking Duration: 15-30 minutes/day Frequency: 5-6 times per week Maryam/Mandaeism: Roman Catholic Special maryam needs: No Seatbelt use: always Helmet use: Yes Helmet use: always Drive intox or ride w/intox 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
== END 2025-02-03 09:24 | disposition home or self-care (01) ==
PROVIDERS: Emergency Provider Physician Assistant; PCP Family Medicine
DX: J20.9 Acute bronchitis, unspecified (principal)
CPT/HCPCS: 99283 ×2; 87428; 93005; 71046; 93010

== ENCOUNTER 2025-02-05 15:55 | Emergency (ER) | payer OTHER, SELFPAY ==
--- NOTE | 2025-02-05 16:00 | RT.EKG_ITS ---
APPROVED REPORT Exam: Resting ECG Reason for Exam: dizziness Patient Location: E HR:111 bpm ECG Measurements Heart Rate 111 AXIS MT 168 P 48 QRSd 93 QRS 13 QT 342 T 15 QTc 465 Conclusion Sinus tachycardia...rate> 99 No STEMI
[2025-02-05 16:05] VITALS: BP 135/79; PULSE 117; RESP 20; TEMP 36.8; O2SAT 93
--- NOTE | 2025-02-05 16:12 | W.ED.GENAD ---
Discharge Plan Disposition Patient Disposition: Home Discharge Details Clinical Impression: Acute leg pain Primary Care Provider: Brendon Vivar ED Provider: Jamir Matson Home Meds and New Rx's Prescriptions: Continued gabapentin 300 mg capsule 300 mg PO BID Qty: 180 3RF omeprazole 40 mg capsule,delayed release(DR/EC) 40 mg PO DAILY Qty: 90 3RF lorazepam 1 mg tablet 1 mg PO DAILY PRN (Reason: anxiety) Qty: 10 0RF Rx Instructions: Use when considering ER visit clonazepam 1 mg tablet 1 mg PO BID Qty: 56 2RF cyclobenzaprine 10 mg tablet 10 mg PO TID PRN (Reason: muscle spasm) Qty: 30 3RF methadone 10 mg/5 mL solution 100 mg PO QAM calcitriol 0.5 mcg capsule 1 mcg PO .COMPLEX Qty: 270 3RF Rx Instructions: 1 mcg orally t2 tabs qam and 1 tab QHS; calcium carbonate [Tums] 200 mg calcium (500 mg) tablet,chewable 2,000 mg PO BID prochlorperazine maleate 5 mg tablet 5 mg PO TID PRN (Reason: acute nausea) Qty: 30 0RF polyethylene glycol 3350 17 gram powder in packet 17 g PO BID PRN magnesium gluconate 27 mg magnesium (500 mg) tablet 500 mg PO BID Rx Instructions: takes 500mg QAM and 1000mg QHS doxycycline hyclate 100 mg capsule 100 mg PO BID 5 Days Qty: 10 0RF diclofenac sodium 1 % gel 2 g topical QID Qty: 50 0RF Rx Instructions: apply to single elbow, wrist or hand; for hand includes palm/fingers/back of hand Discharge Instructions Instructions: Leg Pain (ED) Additional Instructions: Please follow-up with your primary care provider regarding your visit to the emergency department today. Be sure to discuss results of all test performed here today to include radiology, and laboratory testing as well as results for any pending cultures. Should your symptoms worsen, or if you develop new concerning symptoms, please return immediately emergency department for further evaluation. HPI General Date/Time Provider Initiated Documentation: 02/05/25 16:06. HPI Narrative: MDM/Narrative: 29-year-old male who is well-known to the emergency department presents for concern for left lower extremity DVT. Physical exam shows no significant abnormality, however patient is tachycardic, and reports a history of prior DVT. No ultrasound capabilities at this time, such we will obtain a D-dimer to further stratify the patient. Will also evaluate patient's electrolytes as he frequently has abnormalities with these chronically. Will attempt to determine if patient will require further evaluation such as CT PE, or potential transfer for rule out ultrasound if D-dimer is positive. D-dimer negative, electrolytes within normal limits, no other significant abnormalities. Will discharge patient to follow-up with primary care. Disposition: Home HPI: 29-year-old with a past med history of of prior DVT, presents for concern for left lower extremity DVT. He notes that [place] noted a small lump in his left lower extremity at the area of the upper lateral calf. Notes that it is slightly painful. Patient states that he began rubbing the area, and when he [place] around for several hours became lightheaded. Patient was evaluated by performing arts technicians who recommended he get checked out at the emergency department. He denies any current complaints. ROS: Negative besides as mentioned above Exam: Gen: A&O NAD HEENT: NCAT, EOMI, not icteric. External ears normal. No rhinorrhea. Moist mucous membranes. Neck: Supple, full range of motion, no observable masses, No meningeal sign. Lungs: No Respiratory distress. CV: RRR, no edema. Abdomen: Soft, nondistended, No rebound tenderness. MSK: No joint swelling, no redness. Skin: No rashes, petechiae, lesions. Normal color per patient. Neuro: Normal Gait, Grossly intact. Psych: Appropriate for situation. Rhythm: Sinus tachycardia Rate: 111 [place]: Normal axis Intervals: Normal intervals Other findings: No acute ST segment or T wave changes to suggest acute ischemia. Labs: Laboratory Tests Range/Units 02/05/25 02/05/25 17:10 17:20 WBC (4.4-10.8) 10^3/uL 8.05 RBC (4.36-5.78) 10^6/uL 3.74 L Hgb (13.5-17.5) g/dL 9.7 L Hct (40.0-50.0) % 31.1 L MCV (80-95) fL 83 MCH (27.0-33.0) pg 25.9 L MCHC (32.0-36.0) % 31.2 L RDW (11.8-14.1) % 15.8 H Plt Count (130-400) 10^3/uL 416 H MPV (8.0-11.0) fL 10.1 Immature Gran % % 0.2 Neutrophils % % 64.2 Lymphocytes % % 23.7 Monocytes % % 9.6 Eosinophils % % 1.9 Basophils % % 0.4 Nucleated RBC % (0.0-0.3) % 0.0 Absolute Neutrophils (1.2-6.7) 10^3/uL 5.17 Absolute Lymphocytes (1.2-3.4) 10^3/uL 1.91 Absolute Monocytes (0.1-0.8) 10^3/uL 0.77 Absolute Eosinophils (0.0-0.7) 10^3/uL 0.15 Absolute Basophils (0.0-0.2) 10^3/uL 0.03 D-Dimer (<500) ng/mlFEU 354 Sodium (136-145) mmol/L 138 Potassium (3.5-5.1) mmol/L 3.8 Chloride (98-107) mmol/L 101 Carbon Dioxide (21.0-32.0) mmol/L 32.3 H Anion Gap (3-11) mmol/L 4.7 BUN (7-18) mg/dL 15 Creatinine (0.70-1.30) mg/dL 2.0 H Est GFR (CKD-EPI 2020) (mL/min/1.73m2) 44.92 Glucose (74-106) mg/dL 94 Calcium (8.5-10.1) mg/dL 10.3 H Magnesium (1.8-2.4) mg/dL 2.1 Total Bilirubin (0.2-1.0) mg/dL 0.3 AST (15-37) U/L 40 H ALT (16-63) U/L 49 Alkaline Phosphatase (46-116) U/L 158 H Troponin I (<or=76) ng/L 4 Total Protein (6.4-8.2) g/dL 8.0 Albumin (3.4-5.0) g/dL 3.3 L 8 Related Data Home Medications ?Medication ?Instructions ?Recorded ?Confirmed calcium carbonate (Tums) 2,000 mg PO BID 02/02/23 02/03/25 methadone 10 mg/5 mL oral solution 100 mg PO QAM 06/12/23 02/03/25 prochlorperazine maleate 5 mg 5 mg PO TID PRN acute nausea #30 09/06/23 02/03/25 tablet tabs gabapentin 300 mg capsule 300 mg PO BID #180 caps 06/01/24 02/03/25 calcitriol 0.5 mcg capsule 1 mcg (2 x 0.5 mcg) PO .COMPLEX 06/29/24 02/03/25 #270 caps omeprazole 40 mg capsule,delayed 40 mg PO DAILY #90 caps 07/27/24 02/03/25 release polyethylene glycol 3350 17 gram 17 g PO BID PRN 10/15/24 02/03/25 oral powder packet lorazepam 1 mg tablet 1 mg PO DAILY PRN anxiety #10 tabs 10/19/24 02/03/25 clonazepam 1 mg tablet 1 mg PO BID #56 tabs 11/16/24 02/03/25 cyclobenzaprine 10 mg tablet 10 mg PO TID PRN muscle spasm #30 11/16/24 02/03/25 tabs magnesium gluconate 27 mg 500 mg PO BID 01/30/25 02/03/25 magnesium (500 mg) tablet diclofenac sodium 1 % topical gel 2 g topical QID #50 grams 02/03/25 doxycycline hyclate 100 mg capsule 100 mg PO BID 5 days #10 caps 02/03/25 Previous Rx's ?Medication ?Instructions ?Recorded prochlorperazine maleate 5 mg 5 mg PO TID PRN acute nausea #30 09/06/23 tablet tabs gabapentin 300 mg capsule 300 mg PO BID #180 caps 06/01/24 calcitriol 0.5 mcg capsule 1 mcg (2 x 0.5 mcg) PO .COMPLEX 06/29/24 #270 caps omeprazole 40 mg capsule,delayed 40 mg PO DAILY #90 caps 07/27/24 release lorazepam 1 mg tablet 1 mg PO DAILY PRN anxiety #10 tabs 10/19/24 clonazepam 1 mg tablet 1 mg PO BID #56 tabs 11/16/24 cyclobenzaprine 10 mg tablet 10 mg PO TID PRN muscle spasm #30 11/16/24 tabs diclofenac sodium 1 % topical gel 2 g topical QID #50 grams 02/03/25 doxycycline hyclate 100 mg capsule 100 mg PO BID 5 days #10 caps 02/03/25 Allergies Allergy/AdvReac Type Severity Reaction Status Date / Time codeine Allergy Intermediate pass out Verified 02/05/25 16:09 Penicillins Allergy Skin Rash Verified 02/05/25 16:09 marijuana (cannabis) AdvReac Severe Paranoia Verified 02/05/25 16:09 amoxicillin AdvReac Intermediate Nausea Verified 02/05/25 16:09 dextromethorphan (From AdvReac Intermediate got Verified 02/05/25 16:09 NyQuil) really hot and sweaty doxylamine (From NyQuil) AdvReac Intermediate got Verified 02/05/25 16:09 really hot and sweaty pseudoephedrine (From NyQuil) AdvReac Intermediate got Verified 02/05/25 16:09 really hot and sweaty General Stated Complaint: GenMedical ADRIANA: 3 Course Vital Signs Vital signs: Vital Signs Temperature 36.8 C 02/05/25 16:05 Pulse 117 H 02/05/25 16:05 Respiratory Rate 20 02/05/25 16:05 Blood Pressure 135/79 02/05/25 16:05 Pulse Oximetry 93 02/05/25 16:05 Temperature 36.8 C 02/05/25 16:05 Temperature Source Oral 02/05/25 16:05 Pulse 117 H 02/05/25 16:05 Respiratory Rate 20 02/05/25 16:05 Blood Pressure 135/79 02/05/25 16:05 Pulse Oximetry 93 02/05/25 16:05 Oxygen Delivery Method Room Air 02/05/25 16:05 Oxygen Flow Rate 0 02/05/25 16:05 Medical Decision Making Quality:SDOH Health Related Social Needs: Health related social needs daily activities PFSH All Active Problems (Updated 02/05/25 @ 18:07 by Jamir Matson MD) Acute leg pain (Acute) Bronchitis (Acute) Well adult health check (Acute) Abdominal pain (Acute) Anemia (Chronic) Chest pain of uncertain etiology (Acute) Upper respiratory infection, viral (Acute) Cough (Acute) Pharyngitis (Acute) Heart palpitations (Acute) Obstructive sleep apnea (Chronic) Metabolic dysfunction-associated fatty liver disease (MAFLD) (Acute) Fatty liver (Acute) IBS (irritable bowel syndrome) (Chronic) Obesity (Chronic) Migraine with aura (Acute) Testicle lump (Acute) Pes anserine bursitis (Acute) Left-sided Flower's palsy (Acute) Opiate dependence, continuous (Acute) 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 Possible 2' Methadone, Clnzpm (?). Surg eval (+)/No further action. History of electrolyte imbalance (Acute) Neck pain on left side (Acute) with shoulder, upper back pain.. torticollis, radiating into left hip/leg Pulmonary nodule 1 cm or greater in diameter (Chronic) Therapeutic opioid induced constipation (Acute) Sphincter of Oddi dysfunction (Chronic) Abnormal CT scan, kidney (Acute) Intrahepatic bile duct dilation (Acute) Common bile duct dilatation (Chronic) Has been dilated for quite some time, now more-so. Normal LFTs. Known gallstones. Depression (Chronic) Elevated parathyroid hormone (Acute) Family history of coronary arteriosclerosis (Chronic) Father of ND at 50, mother had ND at 42 Severe anxiety with panic (Chronic) Medical History Multiple endocrine neoplasia type I CKD (chronic kidney disease) stage 2, GFR 60-89 ml/min GFR 64-65, with Hx FLORESITA and GFR < 45 Primary hyperparathyroidism Complex medical condition Serious electrolyte imbalances, with gynecomastia, possible MEN Dx, CKD and anemia with baseline anxiety and Hx PTSD. Hypocalcemia Anxiety Depression Hyperlipidemia Family history of multiple endocrine neoplasia, type 1 PTSD (post-traumatic stress disorder) Per pt. states no triggers at this time. Surgical History History of laparoscopic cholecystectomy (~11/2023) H/O parathyroidectomy Family History Mother Anxiety Asthma Depression Sister Anxiety Depression Father Cancer lung & stomach Depression Diabetes Hypertension MEN 1 (multiple endocrine neoplasia) Social History Smoking/Tobacco Use Status: Never Smoking risk assessment performed?: Yes Alcohol Intake: never Drug use: Current Sobriety Substance use type: former substance user, crack/cocaine, heroin and painkillers Details: stopped using substances for the past 4 years Adopted: No Caregiver/Support person: No Foster care: No Household members: none Housing: apartment Number of Children: 0 Communication Needs: None Education Level: high school Do you need help understanding health information?: Never 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[employer] Pets and animals: Yes (Ally) Pets and animals: dog(s) Sexually active: No Do you think of yourself as: straight/heterosexual Current gender identity: male What is your relationship status?: How often do you talk on the phone with friends or family?: twice per week How often do you get together with friends or relatives?: never Do you belong to any clubs or organized social groups?: no Panel score (0-1 are the most socially isolated patients): 0 What type of physical activity do you participate in: walking Duration: 15-30 minutes/day Frequency: 5-6 times per week Maryam/Confucianism: Zoroastrianism Special maryam needs: No Seatbelt use: always Helmet use: Yes Helmet use: always Drive intox or ride w/intox livery car driver: No Do you feel safe at home: Yes Do you feel safe in your relationship?: Yes
[2025-02-05] MEDS: Normal Saline 1,000 ML 1000 ML IV (17:11)
[2025-02-05 17:23] LABS: Abs Immature Grans 0.02 10^3/uL (0.0-0.06); HCT 31.1 % (40.0-50.0); HGB 9.7 g/dL (13.5-17.5); Immature Grans % 0.2 %; MCH 25.9 pg (27.0-33.0); MCHC 31.2 % (32.0-36.0); MCV 83 fL (80-95); MPV 10.1 fL (8.0-11.0); Platelet Count 416 10^3/uL (130-400); RBC 3.74 10^6/uL (4.36-5.78); RDW 15.8 % (11.8-14.1); RDW-SD 47.4 fL; WBC 8.05 10^3/uL (4.4-10.8)
[2025-02-05 17:45] LABS: ALT 49 U/L (16-63); AST 40 U/L (15-37); Albumin 3.3 g/dL (3.4-5.0); Alkaline Phosphatase 158 U/L (46-116); Anion Gap 4.7 mmol/L (3-11); BUN 15 mg/dL (7-18); Bilirubin, Total 0.3 mg/dL (0.2-1.0); CO2 32.3 mmol/L (21.0-32.0); Calcium 10.3 mg/dL (8.5-10.1); Chloride 101 mmol/L (98-107); Estimated GFR 44.92 (mL/min/1.73m2); Glucose 94 mg/dL (74-106); Magnesium 2.1 mg/dL (1.8-2.4); Potassium 3.8 mmol/L (3.5-5.1); Sodium 138 mmol/L (136-145); Total Protein 8.0 g/dL (6.4-8.2); Troponin I 4 ng/L (<or=76)
[2025-02-05 17:57] LABS: D-Dimer 354 ng/mlFEU (<500)
[2025-02-05 18:23] VITALS: BP 137/75; PULSE 89; RESP 18; TEMP 37.1; O2SAT 98
== END 2025-02-05 18:23 | disposition home or self-care (01) ==
PROVIDERS: Emergency Provider General Practice; PCP Family Medicine
DX: M79.605 Pain in left leg (principal); Z86.718 Personal history of other venous thrombosis and embolism
CPT/HCPCS: 36415; 80053; 93005; 96360; 99284; 83735; 84484; 85025; 85379; 93010; 99283

== ENCOUNTER 2025-02-20 07:46 | Emergency (ER) | payer OTHER, SELFPAY ==
[2025-02-20 07:49] VITALS: BP 147/92; PULSE 112; RESP 16; TEMP 37.6; O2SAT 96
--- NOTE | 2025-02-20 07:58 | W.ED.GENAD ---
Discharge Plan Disposition Patient Disposition: Home Discharge Details Clinical Impression: Right elbow pain Primary Care Provider: Unknown,Unknown ED Provider: Pedro Wolfe Lyman Meds and New Rx's Prescriptions: Continued gabapentin 300 mg capsule 300 mg PO BID Qty: 180 3RF omeprazole 40 mg capsule,delayed release(DR/EC) 40 mg PO DAILY Qty: 90 3RF lorazepam 1 mg tablet 1 mg PO DAILY PRN (Reason: anxiety) Qty: 10 0RF Rx Instructions: Use when considering ER visit cyclobenzaprine 10 mg tablet 10 mg PO TID PRN (Reason: muscle spasm) Qty: 30 3RF methadone 10 mg/5 mL solution 100 mg PO QAM calcitriol 0.5 mcg capsule 1 mcg PO .COMPLEX Qty: 270 3RF Rx Instructions: 1 mcg orally t2 tabs qam and 1 tab QHS; clonazepam 1 mg tablet 1 mg PO BID Qty: 10 0RF calcium carbonate [Tums] 200 mg calcium (500 mg) tablet,chewable 2,000 mg PO BID prochlorperazine maleate 5 mg tablet 5 mg PO TID PRN (Reason: acute nausea) Qty: 30 0RF polyethylene glycol 3350 17 gram powder in packet 17 g PO BID PRN magnesium gluconate 27 mg magnesium (500 mg) tablet 500 mg PO BID Rx Instructions: takes 500mg QAM and 1000mg QHS diclofenac sodium 1 % gel 2 g topical QID Qty: 50 0RF Rx Instructions: apply to single elbow, wrist or hand; for hand includes palm/fingers/back of hand Discharge Instructions Additional Instructions: You were seen in the emergency department for your right elbow pain. You most likely have a strain. As we discussed, please ice your elbow for 20 minutes on 20 minutes off for the next day. As we also discussed if you cannot move your hand or if your hand turns blue please return to the emergency department. Otherwise please follow-up with your primary care provider as needed. For your pain please take medications as follows: 1. Take acetaminophen (Tylenol), 1,000 mg (two 500 mg tabs) every 6 hours [2. Take ibuprofen (Advil), 400 mg every 6 hours.] HPI General Date/Time Provider Initiated Documentation: 02/20/25 07:55. HPI Narrative: MDM This is an overall very well-appearing normothermic but tachycardic [id number] 29-year-old male with most likely right elbow strain for which he will receive conservative management with Lidoderm patch instructions for ice acetaminophen and ibuprofen and outpatient follow-up. No significant erythema to suggest cellulitis. No fluctuance to suggest abscess. No pain out of proportion to suggest necrotizing soft tissue infection. No recent PICC lines nor history of IV drug use so my suspicion is low for right upper extremity DVT so I did not feel patient required right upper extremity ultrasound. No lacerations to suggest benefit from primary closure. No recent IV contrast administration to suggest increased risk for extravasation injury. Patient did have tenderness over his right medial epicondyle but he did not have pain with forced flexion and pronation of his right forearm and wrist nor did he have any ulnar nerve neuropathy so my suspicion for medial epicondylitis was low. His right hand was warm and well-perfused so I was not concerned or critical limb ischemia so I do not feel that he requires CT angiogram of his chest. He has no history of thoracic rib to suggest thoracic outlet syndrome. Patient I discussed instructions to rest and ice. We discussed that he should return if he develops worsening pain any color changes in his hand or could not move his right hand. He understood his return indications and was discharged with an empiric trial of expectant outpatient management. Of note his heart rate was 112 on arrival. Patient has a history of routine emergency department visits and he is not infrequently tachycardic into the 1 teens. He was not having chest pain to suggest PE so I did not send a D-dimer. His repeat heart rate was 104 bpm at the time of discharge. HPI This is a male with a history of recent physical activity presenting with right elbow pain. The patient reports engaging in sheetrocking and sanding activities on 02/16/2025 and 02/17/2025, followed by additional sanding and painting with a roller on 02/18/2025. Upon waking up on 02/19/2025, he experienced significant pain extending from his elbow upwards. The pain is described as both bone-deep and muscular, with notable discomfort upon squeezing the muscle. He rested his arm on 02/19/2025 due to mild pain, but the pain intensified on 02/20/2025, accompanied by a perceived weakness in his hand compared to the previous day. He is uncertain if these symptoms are a result of repetitive strain. As a right-handed individual, he used his right hand for all the aforementioned activities. He does not recall any specific injury or trauma to the arm, such as hitting it against a ladder. He also reports no recent intravenous injections in that arm, except for one administered weeks ago. He is not an IV drug user. He has not experienced any fevers, chest pain, or breathing difficulties. He notes that the affected area feels warmer than the surrounding skin. He has not taken any [id number] pain relievers such as Tylenol or ibuprofen. Exam General: Well-appearing in no acute distress speaking in complete sentences. Head: Normocephalic, atraumatic. Eye: Extraocular eye movements intact. No conjunctival injection. No scleral icterus. Ear, nose, mouth, throat: Grossly normal inspection. Normal voice, handling secretions normally. Neck: Trachea midline. Cardiovascular: Well-perfused distal extremities. Respiratory: Nonlabored respiration. Gastrointestinal: Nondistended abdomen. Musculoskeletal: Right upper extremity with no signs of trauma. Right hand warm well-perfused 2+ right radial pulse. Sensation and motor function intact in the right hand across the radial, median, and ulnar nerve distributions. Patient has full range of motion right upper extremity from the hands proximally to the wrist forearm and elbow. He does have some mild tenderness on palpation to the right medial epicondyle. No fluctuance. No erythema. No significant warmth. No lacerations. He has no pain with forced flexion or pronation of his forearm or wrist. No ecchymosis. Skin: Normal for age and race, grossly normal temperature and turgor. No acute rash. Neurologic: Alert and appropriate, no apparent acute deficits. Psychiatric: Mood and manner are appropriate. Grooming and personal hygiene are appropriate. Related Data Home Medications ?Medication ?Instructions ?Recorded ?Confirmed calcium carbonate (Tums) 2,000 mg PO BID 02/02/23 02/20/25 methadone 10 mg/5 mL oral solution 100 mg PO QAM 06/12/23 02/20/25 prochlorperazine maleate 5 mg 5 mg PO TID PRN acute nausea #30 09/06/23 02/20/25 tablet tabs gabapentin 300 mg capsule 300 mg PO BID #180 caps 06/01/24 02/20/25 calcitriol 0.5 mcg capsule 1 mcg (2 x 0.5 mcg) PO .COMPLEX 06/29/24 02/20/25 #270 caps omeprazole 40 mg capsule,delayed 40 mg PO DAILY #90 caps 07/27/24 02/20/25 release polyethylene glycol 3350 17 gram 17 g PO BID PRN 10/15/24 02/20/25 oral powder packet lorazepam 1 mg tablet 1 mg PO DAILY PRN anxiety #10 tabs 10/19/24 02/20/25 cyclobenzaprine 10 mg tablet 10 mg PO TID PRN muscle spasm #30 11/16/24 02/20/25 tabs magnesium gluconate 27 mg 500 mg PO BID 01/30/25 02/20/25 magnesium (500 mg) tablet diclofenac sodium 1 % topical gel 2 g topical QID #50 grams 02/03/25 02/20/25 clonazepam 1 mg tablet 1 mg PO BID #10 tabs 02/08/25 02/20/25 Previous Rx's ?Medication ?Instructions ?Recorded prochlorperazine maleate 5 mg 5 mg PO TID PRN acute nausea #30 09/06/23 tablet tabs gabapentin 300 mg capsule 300 mg PO BID #180 caps 06/01/24 calcitriol 0.5 mcg capsule 1 mcg (2 x 0.5 mcg) PO .COMPLEX 06/29/24 #270 caps omeprazole 40 mg capsule,delayed 40 mg PO DAILY #90 caps 07/27/24 release lorazepam 1 mg tablet 1 mg PO DAILY PRN anxiety #10 tabs 10/19/24 cyclobenzaprine 10 mg tablet 10 mg PO TID PRN muscle spasm #30 11/16/24 tabs diclofenac sodium 1 % topical gel 2 g topical QID #50 grams 02/03/25 clonazepam 1 mg tablet 1 mg PO BID #10 tabs 02/08/25 Allergies Allergy/AdvReac Type Severity Reaction Status Date / Time codeine Allergy Intermediate pass out Verified 02/20/25 07:56 Penicillins Allergy Skin Rash Verified 02/20/25 07:56 marijuana (cannabis) AdvReac Severe Paranoia Verified 02/20/25 07:56 amoxicillin AdvReac Intermediate Nausea Verified 02/20/25 07:56 dextromethorphan (From AdvReac Intermediate got Verified 02/20/25 07:56 NyQuil) really hot and sweaty doxylamine (From NyQuil) AdvReac Intermediate got Verified 02/20/25 07:56 really hot and sweaty pseudoephedrine (From NyQuil) AdvReac Intermediate got Verified 02/20/25 07:56 really hot and sweaty General Stated Complaint: Orthopedic ADRIANA: 4 Course Vital Signs Vital signs: Vital Signs Temperature 37.6 C H 02/20/25 07:49 Pulse 112 H 02/20/25 07:49 Respiratory Rate 16 02/20/25 07:49 Blood Pressure 147/92 H 02/20/25 07:49 Pulse Oximetry 96 02/20/25 07:49 Temperature 37.6 C H 02/20/25 07:49 Temperature Source Tympanic 02/20/25 07:49 Pulse 112 H 02/20/25 07:49 Respiratory Rate 16 02/20/25 07:49 Blood Pressure 147/92 H 02/20/25 07:49 Pulse Oximetry 96 02/20/25 07:49 Medical Decision Making Quality:SDOH Health Related Social Needs: Health related social needs daily activities PFSH All Active Problems (Updated 02/20/25 @ 08:08 by Pedro Wolfe MD) Right elbow pain (Acute) Acute leg pain (Acute) Bronchitis (Acute) Well adult health check (Acute) Abdominal pain (Acute) Anemia (Chronic) Chest pain of uncertain etiology (Acute) Obstructive sleep apnea (Chronic) Metabolic dysfunction-associated fatty liver disease (MAFLD) (Acute) Fatty liver (Acute) IBS (irritable bowel syndrome) (Chronic) Obesity (Chronic) Migraine with aura (Acute) Testicle lump (Acute) Pes anserine bursitis (Acute) Left-sided Flower's palsy (Acute) Opiate dependence, continuous (Acute) 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 Possible 2' Methadone, Clnzpm (?). Surg eval (+)/No further action. History of electrolyte imbalance (Acute) Neck pain on left side (Acute) with shoulder, upper back pain.. torticollis, radiating into left hip/leg Pulmonary nodule 1 cm or greater in diameter (Chronic) Therapeutic opioid induced constipation (Acute) Sphincter of Oddi dysfunction (Chronic) Abnormal CT scan, kidney (Acute) Intrahepatic bile duct dilation (Acute) Common bile duct dilatation (Chronic) Has been dilated for quite some time, now more-so. Normal LFTs. Known gallstones. Depression (Chronic) Elevated parathyroid hormone (Acute) Family history of coronary arteriosclerosis (Chronic) Father of PA at 50, mother had PA at 42 Severe anxiety with panic (Chronic) Medical History Multiple endocrine neoplasia type I CKD (chronic kidney disease) stage 2, GFR 60-89 ml/min GFR 64-65, with Hx FLORESITA and GFR < 45 Primary hyperparathyroidism Complex medical condition Serious electrolyte imbalances, with gynecomastia, possible MEN Dx, CKD and anemia with baseline anxiety and Hx PTSD. Hypocalcemia Anxiety Depression Hyperlipidemia Family history of multiple endocrine neoplasia, type 1 PTSD (post-traumatic stress disorder) Per pt. states no triggers at this time. Surgical History History of laparoscopic cholecystectomy (~11/2023) H/O parathyroidectomy Family History Mother Anxiety Asthma Depression Sister Anxiety Depression Father Cancer lung & stomach Depression Diabetes Hypertension MEN 1 (multiple endocrine neoplasia) Social History Smoking/Tobacco Use Status: Never Smoking risk assessment performed?: Yes Alcohol Intake: never Drug use: Current Sobriety Substance use type: former substance user, crack/cocaine, heroin and painkillers Details: stopped using substances for the past 4 years Adopted: No Caregiver/Support person: No Foster care: No Household members: none Housing: apartment Number of Children: 0 Communication Needs: None Education Level: high school Do you need help understanding health information?: Never 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[employer] Pets and animals: Yes (Ally) Pets and animals: dog(s) Sexually active: No Do you think of yourself as: straight/heterosexual Current gender identity: male What is your relationship status?: How often do you talk on the phone with friends or family?: twice per week How often do you get together with friends or relatives?: never Do you belong to any clubs or organized social groups?: no Panel score (0-1 are the most socially isolated patients): 0 What type of physical activity do you participate in: walking Duration: 15-30 minutes/day Frequency: 5-6 times per week Maryam/Restorationism: Catholic Special maryam needs: No Seatbelt use: always Helmet use: Yes Helmet use: always Drive intox or ride w/intox driver medic: No Do you feel safe at home: Yes Do you feel safe in your relationship?: Yes
[2025-02-20 08:14] VITALS: PULSE 104
[2025-02-20] MEDS: Lidocaine 5% Patch 1 PATCH TP (08:17)
[2025-02-20] MEDS: Ibuprofen 600 MG TAB PO (08:18)
[2025-02-20] MEDS: Acetaminophen 500 MG TAB 1000 MG PO (08:18)
== END 2025-02-20 08:19 | disposition home or self-care (01) ==
PROVIDERS: Emergency Provider Emergency Medicine
DX: M25.521 Pain in right elbow (principal)
CPT/HCPCS: 99282 ×2

== ENCOUNTER 2025-02-21 11:34 | Emergency (ER) | payer OTHER, SELFPAY ==
[2025-02-21 11:38] VITALS: BP 120/83; PULSE 104; RESP 20; TEMP 36; O2SAT 92
[2025-02-21 11:40] VITALS: BP 120/83; PULSE 104; RESP 20; TEMP 36; O2SAT 92
--- NOTE | 2025-02-21 11:55 | ED.GENADUL_ITS ---
Discharge Plan Disposition Patient Disposition: Eloped Discharge Details Clinical Impression: Tenderness of neck Primary Care Provider: Unknown,Unknown ED Provider: Pedro Wolfe [place] Meds and New Rx's Prescriptions: No Action gabapentin 300 mg capsule 300 mg PO BID Qty: 180 3RF omeprazole 40 mg capsule,delayed release(DR/EC) 40 mg PO DAILY Qty: 90 3RF lorazepam 1 mg tablet 1 mg PO DAILY PRN (Reason: anxiety) Qty: 10 0RF Rx Instructions: Use when considering ER visit cyclobenzaprine 10 mg tablet 10 mg PO TID PRN (Reason: muscle spasm) Qty: 30 3RF methadone 10 mg/5 mL solution 100 mg PO QAM calcitriol 0.5 mcg capsule 1 mcg PO .COMPLEX Qty: 270 3RF Rx Instructions: 1 mcg orally t2 tabs qam and 1 tab QHS; clonazepam 1 mg tablet 1 mg PO BID Qty: 10 0RF calcium carbonate [Tums] 200 mg calcium (500 mg) tablet,chewable 2,000 mg PO BID prochlorperazine maleate 5 mg tablet 5 mg PO TID PRN (Reason: acute nausea) Qty: 30 0RF polyethylene glycol 3350 17 gram powder in packet 17 g PO BID PRN magnesium gluconate 27 mg magnesium (500 mg) tablet 500 mg PO BID Rx Instructions: takes 500mg QAM and 1000mg QHS diclofenac sodium 1 % gel 2 g topical QID Qty: 50 0RF Rx Instructions: apply to single elbow, wrist or hand; for hand includes palm/fingers/back of hand Discharge Data Discharge Date/Time-TO BE ENTERED AT DEPARTURE: 02/21/25 12:49 HPI General Date/Time Provider Initiated Documentation: 02/21/25 11:55 . HPI Narrative: MDM This is an overall quite well-appearing normothermic but mildly tachycardic 29-year-old male with history of parathyroidectomy due to primary hyperparathyroidism from MEN now with right sided neck tenderness pain and swallowing concerning for mass versus abscess for which patient will undergo CT scan with IV contrast. Patient has good range of motion of his neck so not suspicious for retropharyngeal abscess. His uvula is midline so my suspicion is low for peritonsillar abscess. Nontoxic so my suspicion is low for Lemierre's syndrome. No brawny edema submentally to suggest Nilesh's angina. Patient has not been vomiting to suggest increased risk for subdural empyema. No pain out of proportion to suggest necrotizing soft tissue infection. No recent chiropractic manipulation and no Shayy sign to suggest cervical arterial dissections I did not feel patient required an angiogram of his neck. He has no posterior oropharynx erythema nor lymphadenopathy to suggest strep pharyngitis I did not swab him for strep. No URI symptoms to suggest benefit from COVID swab. Will reassess and add on TSH. 4:15 PM Late charting due to patient care. Patient eloped from the emergency department. His IV was removed before he eloped. He reported that he would return. His CBC showed no leukocytosis but persistent normocytic anemia. He had no thrombocytopenia. He had CKD but no FLORESITA. Given that his GFR was greater than 30 he will benefit from a CT scan with IV contrast of his neck if he returns to the emergency department. He had mild hypercalcemia slightly more pronounced compared to prior from earlier this month. Patient elevated TSH but a normal free T4. His CT scan was not performed. HPI This is a patient with a history of thyroid cancer presenting with a lump in the throat. The patient has a history of thyroid cancer treated with a parathyroidectomy in 2020 at [place], leaving one parathyroid gland intact. Approximately two months ago, the patient noticed a lump in the throat, which initially did not cause significant pain. Recently, the lump has started to cause discomfort, particularly during swallowing, though not while eating. The pain radiates to the jaw when the lump is touched. The patient reports that the lump appears to be growing and is slightly noticeable from the outside when swallowing. The sensation is described as unusual and difficult to articulate. The patient has not yet consulted the primary care physician about this issue but has an appointment scheduled at the [facility] next . Today, the pain has worsened, radiating into the mouth and lower jawbone when pressure is applied to the lump. Over the past month, the patient has noticed a progressive change in the voice, becoming more raspy. The patient experiences occasional hot sweats at home without any apparent cause and has lost approximately 30 pounds unintentionally over the past month and a half. 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 PAST SURGICAL HISTORY: Parathyroidectomy in 2020 at [place]. Exam General: Well-appearing in no acute distress speaking in complete sentences. Head: Normocephalic, atraumatic. Eye: Extraocular eye movements intact. No conjunctival injection. No scleral icterus. Ear, nose, mouth, throat: Grossly normal inspection. Normal voice, handling secretions normally. Posterior oropharynx no significant erythema. Uvula midline. Neck: Trachea midline. On the right side of the patient's neck overlying his jugular there is an area of slight tenderness. No fluctuance. No erythema. Good range of motion in neck. Cardiovascular: Well-perfused distal extremities. Respiratory: Nonlabored respiration. Gastrointestinal: Nondistended abdomen. Musculoskeletal: No edema. Moving all 4 extremities spontaneously. Skin: Normal for age and race, grossly normal temperature and turgor. No acute rash. Neurologic: Alert and appropriate, no apparent acute deficits. Psychiatric: Mood and manner are appropriate. Grooming and personal hygiene are appropriate. Related Data Home Medications ?Medication ?Instructions ?Recorded ?Confirmed calcium carbonate (Tums) 2,000 mg PO BID 02/02/2302/07 methadone 10 mg/5 mL oral solution 100 mg PO QAM 06/1202/21/25 prochlorperazine maleate 5 mg 5 mg PO TID PRN acute na usea #30 09/06/23 02/21/25 tablet tabs gabapentin 300 mg capsule 300 mg PO BID #180 caps 05/1602/21/25 calcitriol 0.5 mcg capsule 1 mcg (2 x 0.5 mcg) PO .Shawarmanji PLEX 06/29/24 02/21/25 #270 caps omeprazole 40 mg capsule,delayed 40 mg PO DAILY #90 ca ps 07/27/24 02/21/25 release polyethylene glycol 3350 17 gram 17 g PO BID PRN 10/1502/21/25 oral powder packet lorazepam 1 mg tablet 1 mg PO DAILY PRN anxiety #1 0 tabs 10/19/24 02/21/25 cyclobenzaprine 10 mg tablet 10 mg PO TID PRN muscle s pasm #30 11/16/24 02/21/25 tabs magnesium gluconate 27 mg 500 mg PO BID 01/30/2502/21 magnesium (500 mg) tablet diclofenac sodium 1 % topical gel 2 g topical QID #50 grams 02/03/25 02/21/25 clonazepam 1 mg tablet 1 mg PO BID #10 tabs 5 02/21/25 Previous Rx's ?Medication ?Instructions ?Recorded prochlorperazine maleate 5 mg 5 mg PO TID PRN acute na usea #30 09/06/23 tablet tabs gabapentin 300 mg capsule 300 mg PO BID #180 caps 05/16 01/06 calcitriol 0.5 mcg capsule 1 mcg (2 x 0.5 mcg) PO .COM PLEX 06/29/24 #270 caps omeprazole 40 mg capsule,delayed 40 mg PO DAILY #90 ca ps 07/27/24 release lorazepam 1 mg tablet 1 mg PO DAILY PRN anxiety #1 0 tabs 10/19/24 cyclobenzaprine 10 mg tablet 10 mg PO TID PRN muscle s pasm #30 11/16/24 tabs diclofenac sodium 1 % topical gel 2 g topical QID #50 grams 02/03/25 clonazepam 1 mg tablet 1 mg PO BID #10 tabs 5 Allergies Allergy/AdvReac Type Severity Reaction Status Date / Time codeine Allergy Intermediate pass out Verified 02/21/25 12:26 Penicillins Allergy Skin Rash Verified 02/21/25 12:26 marijuana (cannabis) AdvReac Severe Paranoia Verified 02/21/25 12:26 amoxicillin AdvReac Intermediate Nausea Verified 02/21/25 12:26 dextromethorphan (From AdvReac Intermediate got Verified 02/21/25 12:26 NyQuil) really hot and sweaty doxylamine (From NyQuil) AdvReac Intermediate got Verified 02/21/25 12:26 really hot and sweaty pseudoephedrine (From NyQuil) AdvReac Intermediate got Verified 02/21/25 12:26 really hot and sweaty General Stated Complaint: Sorethroat ADRIANA: 3 Course Vital Signs Vital signs: Vital Signs Temperature 36 C L 02/21/25 11:38 Pulse 104 H 02/21/25 11:38 Respiratory Rate 20 02/21/25 11:38 Blood Pressure 120/83 02/21/25 11:38 Pulse Oximetry 92 02/21/25 11:38 Temperature 36 C L 02/21/25 11:40 Pulse 104 H 02/21/25 11:40 Respiratory Rate 20 02/21/25 11:40 Blood Pressure 120/83 02/21/25 11:40 Pulse Oximetry 92 02/21/25 11:40 Medical Decision Making Quality:SDOH Health Related Social Needs: Health related social needs daily activities PFSH All Active Problems (Updated 02/21/25 @ 16:21 by Pedro Wolfe MD) Tenderness of neck (Acute) Right elbow pain (Acute) Acute leg pain (Acute) Bronchitis (Acute) Well adult health check (Acute) Abdominal pain (Acute) Obstructive sleep apnea (Chronic) Metabolic dysfunction-associated fatty liver disease (MAFLD) (Acute) Fatty liver (Acute) IBS (irritable bowel syndrome) (Chronic) Obesity (Chronic) Migraine with aura (Acute) Testicle lump (Acute) Pes anserine bursitis (Acute) Left-sided Flower's palsy (Acute) Opiate dependence, continuous (Acute) 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 Possible 2' Methadone, Clnzpm (?). Surg eval (+)/No further action. History of electrolyte imbalance (Acute) Neck pain on left side (Acute) with shoulder, upper back pain.. torticollis, radiating into left hip/leg Pulmonary nodule 1 cm or greater in diameter (Chronic) Therapeutic opioid induced constipation (Acute) Sphincter of Oddi dysfunction (Chronic) Abnormal CT scan, kidney (Acute) Intrahepatic bile duct dilation (Acute) Common bile duct dilatation (Chronic) Has been dilated for quite some time, now more-so. Normal LFTs. Known gallstones. Depression (Chronic) Elevated parathyroid hormone (Acute) Family history of coronary arteriosclerosis (Chronic) Father of NM at 50, mother had NM at 42 Severe anxiety with panic (Chronic) Medical History Multiple endocrine neoplasia type I CKD (chronic kidney disease) stage 2, GFR 60-89 ml/min GFR 64-65, with Hx FLORESITA and GFR < 45 Primary hyperparathyroidism Complex medical condition Serious electrolyte imbalances, with gynecomastia, possible MEN Dx, CKD and anemia with baseline anxiety and Hx PTSD. Hypocalcemia Anxiety Depression Hyperlipidemia Family history of multiple endocrine neoplasia, type 1 PTSD (post-traumatic stress disorder) Per pt. states no triggers at this time. Surgical History History of laparoscopic cholecystectomy (~11/2023) H/O parathyroidectomy Family History Mother Anxiety Asthma Depression Sister Anxiety Depression Father Cancer lung & stomach Depression Diabetes Hypertension MEN 1 (multiple endocrine neoplasia) Social History Smoking/Tobacco Use Status: Never Smoking risk assessment performed?: Yes Alcohol Intake: never Drug use: Current Sobriety Substance use type: former substance user, crack/cocaine, heroin and painkillers Details: stopped using substances for the past 4 years Adopted: No Caregiver/Support person: No Foster care: No Household members: none Housing: apartment Number of Children: 0 Communication Needs: None Education Level: high school Do you need help understanding health information?: Never 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[employer] Pets and animals: Yes (Ally) Pets and animals: dog(s) Sexually active: No Do you think of yourself as: straight/heterosexual Current gender identity: male What is your relationship status?: How often do you talk on the phone with friends or family?: twice per week How often do you get together with friends or relatives?: never Do you belong to any clubs or organized social groups?: no Panel score (0-1 are the most socially isolated patients): 0 What type of physical activity do you participate in: walking Duration: 15-30 minutes/day Frequency: 5-6 times per week Maryam/Denominational: Denominational Special maryam needs: No Seatbelt use: always Helmet use: Yes Helmet use: always Drive intox or ride w/intox class c truck 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
[2025-02-21 12:35] LABS: Abs Immature Grans 0.03 10^3/uL (0.0-0.06); HCT 29.4 % (40.0-50.0); HGB 9.2 g/dL (13.5-17.5); Immature Grans % 0.4 %; MCH 26.4 pg (27.0-33.0); MCHC 31.3 % (32.0-36.0); MCV 84 fL (80-95); MPV 10.1 fL (8.0-11.0); Platelet Count 317 10^3/uL (130-400); RBC 3.49 10^6/uL (4.36-5.78); RDW 16.6 % (11.8-14.1); RDW-SD 50.4 fL; WBC 8.42 10^3/uL (4.4-10.8)
[2025-02-21 12:47] LABS: Anion Gap 3.3 mmol/L (3-11); BUN 16 mg/dL (7-18); CO2 33.7 mmol/L (21.0-32.0); Calcium 10.8 mg/dL (8.5-10.1); Chloride 100 mmol/L (98-107); Estimated GFR 40.06 (mL/min/1.73m2); Glucose 101 mg/dL (74-106); Potassium 3.5 mmol/L (3.5-5.1); Sodium 137 mmol/L (136-145)
[2025-02-21 13:02] LABS: TSH (W/Ref FT4) 3.82 uIU/mL (0.36-3.74)
== END 2025-02-21 12:49 | disposition left against medical advice (07) ==
LOC: ER 11:56
PROVIDERS: Emergency Provider Emergency Medicine
DX: I26.99 Other pulmonary embolism without acute cor pulmonale (principal); R91.8 Other nonspecific abnormal finding of lung field
CPT/HCPCS: 99283 ×2; 36415; 80048; 84439; 84443; 85025

== ENCOUNTER 2025-02-23 09:34 | Emergency (ER) | payer OTHER, SELFPAY ==
--- NOTE | 2025-02-23 09:45 | RT.EKG_ITS ---
APPROVED REPORT Exam: Resting ECG Reason for Exam: chest pain Patient Location: E HR:123 bpm ECG Measurements Heart Rate 123 AXIS MT 154 P 51 QRSd 95 QRS 66 QT 325 T 6 QTc 465 Conclusion Sinus tachycardia...rate> 99
[2025-02-23 09:49] VITALS: BP 135/80; PULSE 122; RESP 18; TEMP 37.6; O2SAT 94
--- NOTE | 2025-02-23 10:15 | DI.RAD_ITS ---
Exam(s) XR CHEST 2V PA LATERAL EXAM: XR CHEST 2V PA LATERAL CLINICAL HISTORY: left chest/flank pain TECHNIQUE: 2D digital imaging was performed. Two views. COMPARISON: CR XR CHEST 2V PA LATERAL from 02/03/2025 FINDINGS: HEART: Normal size. Aorta: Not dilated. PULMONARY VASCULATURE: Normal. MEDIASTINUM: Unremarkable. LUNGS: Suboptimally inflated but clear. PLEURAL SPACE: No pleural effusion or pneumothorax. BONE:Unremarkable for age. SOFT TISSUES: Unremarkable. IMPRESSION: No acute abnormality. DATA REPOSITORY: RADIATION DOSE DELIVERED:
[2025-02-23 10:40] LABS: Abs Immature Grans 0.03 10^3/uL (0.0-0.06); HCT 31.0 % (40.0-50.0); HGB 9.7 g/dL (13.5-17.5); Immature Grans % 0.3 %; MCH 26.9 pg (27.0-33.0); MCHC 31.3 % (32.0-36.0); MCV 86 fL (80-95); MPV 9.8 fL (8.0-11.0); Platelet Count 309 10^3/uL (130-400); RBC 3.60 10^6/uL (4.36-5.78); RDW 16.8 % (11.8-14.1); RDW-SD 51.8 fL; WBC 10.31 10^3/uL (4.4-10.8)
[2025-02-23 11:08] LABS: D-Dimer 1644 ng/mlFEU (<500)
[2025-02-23 11:21] LABS: ALT 46 U/L (16-63); AST 32 U/L (15-37); Albumin 3.0 g/dL (3.4-5.0); Alkaline Phosphatase 152 U/L (46-116); Anion Gap 3.8 mmol/L (3-11); BUN 17 mg/dL (7-18); Bilirubin, Total 0.4 mg/dL (0.2-1.0); CO2 35.2 mmol/L (21.0-32.0); Calcium 10.5 mg/dL (8.5-10.1); Chloride 101 mmol/L (98-107); Estimated GFR 40.06 (mL/min/1.73m2); Glucose 99 mg/dL (74-106); Magnesium 2.0 mg/dL (1.8-2.4); Potassium 3.4 mmol/L (3.5-5.1); Sodium 140 mmol/L (136-145); Total Protein 7.7 g/dL (6.4-8.2); Troponin I 4 ng/L (<or=76)
[2025-02-23] MEDS: Droperidol 5 MG/2 ML VIAL 2.5 MG IVP (11:21)
[2025-02-23] MEDS: Normal Saline 1,000 ML 1000 ML IV (11:22)
[2025-02-23] MEDS: Normal Saline - Diluent 50 ML VIAL IJ (13:20)
[2025-02-23] MEDS: Omnipaque 350 MG/ML 100 ML BTL IJ (13:21)
[2025-02-23] MEDS: Normal Saline Flush 10 ML SYR IVP (13:21)
--- NOTE | 2025-02-23 13:26 | DI.CT_ITS ---
Exam(s) CT CHEST PE CTA EXAM: CT CHEST PE CTA CLINICAL HISTORY: left chest flank pain elevated d-dimer. TECHNIQUE: Imaging Protocol: Axial CT angiography was performed with multi- slice acquisition and multi-planar reconstructions as well as axial, coronal and sagittal MIP reconstructions. Computer aided detection (CAD) was utilized. CONTRAST MATERIAL: Intravenous: Omnipaque 350 Contrast volume:100 ml COMPARISON: CT CT NECK CHEST W from 01/01/2025 CR XR CHEST 2V PA LATERAL from 02/23/2025 FINDINGS: Exam is limited by respiratory motion. The lungs are not well evaluated due to respiratory motion and dependent changes. The exam is also technically limited due to patient body habitus. Pulmonary Arteries: From multiple filling defects in the pulmonary arteries, in right upper, middle and lower lobe branches as well as left upper lower lobe branches. Mediastinum and Jessika: No dominant adenopathy or fluid collection. Pulmonary parenchyma: Not well evaluated due to motion and expiratory changes. No consolidation or dominant measurable mass. Pleura: Small left pleural effusion. No pneumothorax. Heart: The heart is not dilated. No coronary artery calcifications are seen. No findings to indicate right heart strain. Aorta: Thoracic aorta non-dilated. No dissection. Upper abdomen: No acute findings. Bones: Unremarkable for age. Tubes, Catheters, and Lines: None Soft tissues: Bilateral gynecomastia. IMPRESSION: Bilateral upper and lower lobe pulmonary emboli. Small left pleural effusion. RADIATION DOSE DELIVERED: 177.09mGy.cm Total DLP DATA REPOSITORY: All CT scans at this facility are submitted to the National Radiology Data Registry (NRDR) Dose Index Registry (DIR) with the [employer] ([employer]). RADIATION OPTIMIZATION: All CT scans at this facility use at least one of these dose optimization techniques: automated exposure control; mA and/or kV adjustment per patient size (includes targeted exams where dose is matched to clinical indication); or iterative reconstruction.
--- NOTE | 2025-02-23 14:10 | NUR.NOTE ---
Nursing Note: Received results of chest CT scan via phone from radiologist, Chest CT Scan shows bilateral PE's, patient's RN and ER MD made aware.
[2025-02-23] MEDS: Apixaban 5 MG TAB 10 MG PO (14:24)
[2025-02-23] MEDS: MORPHine 10 MG/ML VIAL IVP (14:45)
--- NOTE | 2025-02-24 12:46 | W.ED.GENAD ---
Discharge Plan Disposition Patient Disposition: Home Condition: Good Discharge Details Clinical Impression: Bilateral pulmonary embolism Primary Care Provider: Unknown,Unknown ED Provider: Jamir Matson Home Meds and New Rx's Prescriptions: New apixaban 5 mg tablet 10 mg PO BID 7 Days Qty: 28 0RF apixaban 5 mg tablet 5 mg PO BID Qty: 120 0RF oxycodone 10 mg tablet 10 mg PO Q6H PRNQty: 14 0RF No Action gabapentin 300 mg capsule 300 mg PO BID Qty: 180 3RF omeprazole 40 mg capsule,delayed release(DR/EC) 40 mg PO DAILY Qty: 90 3RF lorazepam 1 mg tablet 1 mg PO DAILY PRN (Reason: anxiety) Qty: 10 0RF Rx Instructions: Use when considering ER visit cyclobenzaprine 10 mg tablet 10 mg PO TID PRN (Reason: muscle spasm) Qty: 30 3RF methadone 10 mg/5 mL solution 100 mg PO QAM calcitriol 0.5 mcg capsule 1 mcg PO .COMPLEX Qty: 270 3RF Rx Instructions: 1 mcg orally t2 tabs qam and 1 tab QHS; clonazepam 1 mg tablet 1 mg PO BID Qty: 10 0RF calcium carbonate [Tums] 200 mg calcium (500 mg) tablet,chewable 2,000 mg PO BID prochlorperazine maleate 5 mg tablet 5 mg PO TID PRN (Reason: acute nausea) Qty: 30 0RF polyethylene glycol 3350 17 gram powder in packet 17 g PO BID PRN magnesium gluconate 27 mg magnesium (500 mg) tablet 500 mg PO BID Rx Instructions: takes 500mg QAM and 1000mg QHS diclofenac sodium 1 % gel 2 g topical QID Qty: 50 0RF Rx Instructions: apply to single elbow, wrist or hand; for hand includes palm/fingers/back of hand Discharge Instructions Instructions: Pulmonary Embolism (Blood Clot in the Lungs) (DC), Taking oral medicines for blood clots Additional Instructions: Please follow-up with your primary care provider regarding your visit to the emergency department today. Be sure to discuss results of all test performed here today to include radiology, and laboratory testing as well as results for any pending cultures. Should your symptoms worsen, or if you develop new concerning symptoms, please return immediately emergency department for further evaluation. Discharge Data Discharge Date/Time-TO BE ENTERED AT DEPARTURE: 02/23/25 14:45 HPI General Date/Time Provider Initiated Documentation: 02/23/25 09:56. HPI Narrative: MDM/Narrative: Initial Assessment: 29-year-old male with history of DVT, presenting with left flank pain, worse with inspiration, and tachycardia. Differential Diagnosis: - Pulmonary embolism: Highly concerning given history. Obtain D-dimer, CT chest. - Spinal pathology: Unlikely given exam and lack of trauma. - Pneumothorax: Considered. Obtain chest x-ray. - Pneumonia: Considered. Obtain chest x-ray. - ACS: Unlikely. Obtain troponin, EKG. ED Course: - Morphine IV administered, significant pain improvement. - Elevated D-dimer. - CT chest shows bilateral PEs without left heart strain. Clinical Impression: Bilateral pulmonary embolism Disposition: Discharge home. Return precautions for worsening symptoms, syncope, or new symptoms. Patient Education: Return to ED for worsening symptoms, syncope, or new symptoms. This document was created with assistance from [employer]. The patient consented to its use. HPI: The patient is a 29-year-old male with a history of deep vein thrombosis (DVT), presenting with acute left flank and back pain that awoke him at 0300 hours. The pain is exacerbated by deep inspiration. He denies experiencing pyrexia, cough, peripheral edema, or any other new symptoms. ROS: Negative besides as mentioned above Exam: Vital signs: Reviewed. General Appearance: Uncomfortable appearance. HEENT: NCAT, EOMI, not icteric. External ears normal. No rhinorrhea. Moist mucous membranes. Neck: Supple, full range of motion, no observable masses, No meningeal sign. Respiratory: No Respiratory distress. No tachypnea. Cardiovascular: Tachycardic heart rate, regular rhythm. Gastrointestinal: Soft, nondistended, No rebound tenderness. Back: Tenderness in left latissimus dorsi. No midline tenderness, step-offs, or contusion. Skin: Warm and dry, no rash. Neurological: Normal Gait, Grossly intact. Psychiatric: Appropriate for situation. Rhythm: Sinus tachycardia Rate: 123 [place]: Normal axis Intervals: Normal intervals Other findings: No acute ST segment or T wave changes to suggest acute ischemia. Labs: Laboratory Tests Range/Units 02/23/25 02/23/25 02/23/25 10:30 10:30 10:58 WBC (4.4-10.8) 10^3/uL 10.31 RBC (4.36-5.78) 10^6/uL 3.60 L Hgb (13.5-17.5) g/dL 9.7 L Hct (40.0-50.0) % 31.0 L MCV (80-95) fL 86 MCH (27.0-33.0) pg 26.9 L MCHC (32.0-36.0) % 31.3 L RDW (11.8-14.1) % 16.8 H Plt Count (130-400) 10^3/uL 309 MPV (8.0-11.0) fL 9.8 Immature Gran % % 0.3 Neutrophils % % 70.5 Lymphocytes % % 18.2 Monocytes % % 8.8 Eosinophils % % 1.9 Basophils % % 0.3 Nucleated RBC % (0.0-0.3) % 0.0 Absolute Neutrophils (1.2-6.7) 10^3/uL 7.26 H Absolute Lymphocytes (1.2-3.4) 10^3/uL 1.88 Absolute Monocytes (0.1-0.8) 10^3/uL 0.91 H Absolute Eosinophils (0.0-0.7) 10^3/uL 0.20 Absolute Basophils (0.0-0.2) 10^3/uL 0.03 D-Dimer (<500) ng/mlFEU 1644 H Sodium (136-145) mmol/L 140 Potassium (3.5-5.1) mmol/L 3.4 L Chloride (98-107) mmol/L 101 Carbon Dioxide (21.0-32.0) mmol/L 35.2 H Anion Gap (3-11) mmol/L 3.8 BUN (7-18) mg/dL 17 Creatinine (0.70-1.30) mg/dL 2.2 H Est GFR (CKD-EPI 2020) (mL/min/1.73m2) 40.06 Glucose (74-106) mg/dL 99 Calcium (8.5-10.1) mg/dL 10.5 H Magnesium (1.8-2.4) mg/dL 2.0 Total Bilirubin (0.2-1.0) mg/dL 0.4 AST (15-37) U/L 32 ALT (16-63) U/L 46 Alkaline Phosphatase (46-116) U/L 152 H Troponin I (<or=76) ng/L 4 Cancelled Cancelled Total Protein (6.4-8.2) g/dL 7.7 Albumin (3.4-5.0) g/dL 3.0 L Radiology: Exam(s) CT CHEST PE CTA EXAM: CT CHEST PE CTA CLINICAL HISTORY: left chest flank pain elevated d-dimer. TECHNIQUE: Imaging Protocol: Axial CT angiography was performed with multi-slice acquisition and multi-planar reconstructions as well as axial, coronal and sagittal MIP reconstructions. Computer aided detection (CAD) was utilized. CONTRAST MATERIAL: Intravenous: Omnipaque 350 Contrast volume:100 ml COMPARISON: CT CT NECK CHEST W from 01/01/2025 CR XR CHEST 2V PA LATERAL from 02/23/2025 FINDINGS: Exam is limited by respiratory motion. The lungs are not well evaluated due to respiratory motion and dependent changes. The exam is also technically limited due to patient body habitus. Pulmonary Arteries: From multiple filling defects in the pulmonary arteries, in right upper, middle and lower lobe branches as well as left upper lower lobe branches. Mediastinum and Jessika: No dominant adenopathy or fluid collection. Pulmonary parenchyma: Not well evaluated due to motion and expiratory changes. No consolidation or dominant measurable mass. Pleura: Small left pleural effusion. No pneumothorax. Heart: The heart is not dilated. No coronary artery calcifications are seen. No findings to indicate right heart strain. Aorta: Thoracic aorta non-dilated. No dissection. Upper abdomen: No acute findings. Bones: Unremarkable for age. Tubes, Catheters, and Lines: None Soft tissues: Bilateral gynecomastia. IMPRESSION: Bilateral upper and lower lobe pulmonary emboli. Small left pleural effusion. RADIATION DOSE DELIVERED: 177.09mGy.cm Total DLP DATA REPOSITORY: All CT scans at this facility are submitted to the National Radiology Data Registry (NRDR) Dose Index Registry (DIR) with the [employer] (A[employer]). RADIATION OPTIMIZATION: All CT scans at this facility use at least one of these dose optimization techniques: automated exposure control; mA and/or kV adjustment per patient size (includes targeted exams where dose is matched to clinical indication); or iterative reconstruction. Related Data Home Medications ?Medication ?Instructions ?Recorded ?Confirmed calcium carbonate (Tums) 2,000 mg PO BID 02/02/23 02/24/25 methadone 10 mg/5 mL oral solution 100 mg PO QAM 06/12/23 02/24/25 prochlorperazine maleate 5 mg 5 mg PO TID PRN acute nausea #30 09/06/23 02/24/25 tablet tabs gabapentin 300 mg capsule 300 mg PO BID #180 caps 06/01/24 02/24/25 calcitriol 0.5 mcg capsule 1 mcg (2 x 0.5 mcg) PO .COMPLEX 06/29/24 02/24/25 #270 caps omeprazole 40 mg capsule,delayed 40 mg PO DAILY #90 caps 07/27/24 02/24/25 release polyethylene glycol 3350 17 gram 17 g PO BID PRN 10/15/24 02/24/25 oral powder packet lorazepam 1 mg tablet 1 mg PO DAILY PRN anxiety #10 tabs 10/19/24 02/24/25 cyclobenzaprine 10 mg tablet 10 mg PO TID PRN muscle spasm #30 11/16/24 02/24/25 tabs magnesium gluconate 27 mg 500 mg PO BID 01/30/25 02/24/25 magnesium (500 mg) tablet diclofenac sodium 1 % topical gel 2 g topical QID #50 grams 02/03/25 02/24/25 clonazepam 1 mg tablet 1 mg PO BID #10 tabs 02/08/25 02/24/25 apixaban 5 mg tablet 5 mg PO BID #120 tabs 02/23/25 02/24/25 apixaban 5 mg tablet 10 mg (2 x 5 mg) PO BID 7 days #28 02/23/25 02/24/25 tabs oxycodone 10 mg tablet 10 mg PO Q6H PRN #14 tabs 02/23/25 02/24/25 Previous Rx's ?Medication ?Instructions ?Recorded prochlorperazine maleate 5 mg 5 mg PO TID PRN acute nausea #30 09/06/23 tablet tabs gabapentin 300 mg capsule 300 mg PO BID #180 caps 06/01/24 calcitriol 0.5 mcg capsule 1 mcg (2 x 0.5 mcg) PO .COMPLEX 06/29/24 #270 caps omeprazole 40 mg capsule,delayed 40 mg PO DAILY #90 caps 07/27/24 release lorazepam 1 mg tablet 1 mg PO DAILY PRN anxiety #10 tabs 10/19/24 cyclobenzaprine 10 mg tablet 10 mg PO TID PRN muscle spasm #30 11/16/24 tabs diclofenac sodium 1 % topical gel 2 g topical QID #50 grams 02/03/25 clonazepam 1 mg tablet 1 mg PO BID #10 tabs 02/08/25 apixaban 5 mg tablet 5 mg PO BID #120 tabs 02/23/25 apixaban 5 mg tablet 10 mg (2 x 5 mg) PO BID 7 days #28 02/23/25 tabs oxycodone 10 mg tablet 10 mg PO Q6H PRN #14 tabs 02/23/25 Allergies Allergy/AdvReac Type Severity Reaction Status Date / Time codeine Allergy Intermediate pass out Verified 02/24/25 06:45 Penicillins Allergy Skin Rash Verified 02/24/25 06:45 marijuana (cannabis) AdvReac Severe Paranoia Verified 02/24/25 06:45 amoxicillin AdvReac Intermediate Nausea Verified 02/24/25 06:45 dextromethorphan (From AdvReac Intermediate got Verified 02/24/25 06:45 NyQuil) really hot and sweaty doxylamine (From NyQuil) AdvReac Intermediate got Verified 02/24/25 06:45 really hot and sweaty pseudoephedrine (From NyQuil) AdvReac Intermediate got Verified 02/24/25 06:45 really hot and sweaty General Stated Complaint: Chest Pain ADRIANA: 3 Course Vital Signs Vital signs: Vital Signs Temperature 37.6 C H 02/23/25 09:49 Pulse 122 H 02/23/25 09:49 Respiratory Rate 18 02/23/25 09:49 Blood Pressure 135/80 02/23/25 09:49 Pulse Oximetry 94 02/23/25 09:49 Temperature 37.6 C H 02/23/25 09:49 Temperature Source Temporal Artery Scan 02/23/25 09:49 Pulse 122 H 02/23/25 09:49 Respiratory Rate 18 02/23/25 09:49 Respiratory Effort Normal 02/23/25 14:43 Respiratory Depth Normal 02/23/25 14:43 Respiratory Pattern Normal 02/23/25 14:43 Blood Pressure 135/80 02/23/25 09:49 Pulse Oximetry 94 02/23/25 09:49 Oxygen Delivery Method Room Air 02/23/25 09:49 Oxygen Flow Rate 0 02/23/25 09:49 Pain Level 7 02/23/25 09:49 Lab/Test Results Lab/Test Results: Laboratory Tests Range/Units 02/23/25 02/23/25 02/23/25 10:30 10:30 10:58 WBC (4.4-10.8) 10^3/uL 10.31 RBC (4.36-5.78) 10^6/uL 3.60 L Hgb (13.5-17.5) g/dL 9.7 L Hct (40.0-50.0) % 31.0 L MCV (80-95) fL 86 MCH (27.0-33.0) pg 26.9 L MCHC (32.0-36.0) % 31.3 L RDW (11.8-14.1) % 16.8 H Plt Count (130-400) 10^3/uL 309 MPV (8.0-11.0) fL 9.8 Immature Gran % % 0.3 Neutrophils % % 70.5 Lymphocytes % % 18.2 Monocytes % % 8.8 Eosinophils % % 1.9 Basophils % % 0.3 Nucleated RBC % (0.0-0.3) % 0.0 Absolute Neutrophils (1.2-6.7) 10^3/uL 7.26 H Absolute Lymphocytes (1.2-3.4) 10^3/uL 1.88 Absolute Monocytes (0.1-0.8) 10^3/uL 0.91 H Absolute Eosinophils (0.0-0.7) 10^3/uL 0.20 Absolute Basophils (0.0-0.2) 10^3/uL 0.03 D-Dimer (<500) ng/mlFEU 1644 H Sodium (136-145) mmol/L 140 Potassium (3.5-5.1) mmol/L 3.4 L Chloride (98-107) mmol/L 101 Carbon Dioxide (21.0-32.0) mmol/L 35.2 H Anion Gap (3-11) mmol/L 3.8 BUN (7-18) mg/dL 17 Creatinine (0.70-1.30) mg/dL 2.2 H Est GFR (CKD-EPI 2020) (mL/min/1.73m2) 40.06 Glucose (74-106) mg/dL 99 Calcium (8.5-10.1) mg/dL 10.5 H Magnesium (1.8-2.4) mg/dL 2.0 Total Bilirubin (0.2-1.0) mg/dL 0.4 AST (15-37) U/L 32 ALT (16-63) U/L 46 Alkaline Phosphatase (46-116) U/L 152 H Troponin I (<or=76) ng/L 4 Cancelled Cancelled Total Protein (6.4-8.2) g/dL 7.7 Albumin (3.4-5.0) g/dL 3.0 L Medical Decision Making Quality:SDOH Health Related Social Needs: Health related social needs daily activities PFSH All Active Problems (Updated 02/24/25 @ 10:31 by Tere Adams MD) Left pulmonary infiltrate on CXR (Acute) Bilateral pulmonary embolism (Acute) Tenderness of neck (Acute) Right elbow pain (Acute) Acute leg pain (Acute) Bronchitis (Acute) Well adult health check (Acute) Obstructive sleep apnea (Chronic) Metabolic dysfunction-associated fatty liver disease (MAFLD) (Acute) Fatty liver (Acute) IBS (irritable bowel syndrome) (Chronic) Obesity (Chronic) Migraine with aura (Acute) Testicle lump (Acute) Pes anserine bursitis (Acute) Left-sided Flower's palsy (Acute) Opiate dependence, continuous (Acute) 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 Possible 2' Methadone, Clnzpm (?). Surg eval (+)/No further action. History of electrolyte imbalance (Acute) Neck pain on left side (Acute) with shoulder, upper back pain.. torticollis, radiating into left hip/leg Pulmonary nodule 1 cm or greater in diameter (Chronic) Therapeutic opioid induced constipation (Acute) Sphincter of Oddi dysfunction (Chronic) Abnormal CT scan, kidney (Acute) Intrahepatic bile duct dilation (Acute) Common bile duct dilatation (Chronic) Has been dilated for quite some time, now more-so. Normal LFTs. Known gallstones. Depression (Chronic) Elevated parathyroid hormone (Acute) Family history of coronary arteriosclerosis (Chronic) Father of [place] at 50, mother had [place] at 42 Severe anxiety with panic (Chronic) Medical History Multiple endocrine neoplasia type I CKD (chronic kidney disease) stage 2, GFR 60-89 ml/min GFR 64-65, with Hx FLORESITA and GFR < 45 Primary hyperparathyroidism Complex medical condition Serious electrolyte imbalances, with gynecomastia, possible MEN Dx, CKD and anemia with baseline anxiety and Hx PTSD. Hypocalcemia Anxiety Depression Hyperlipidemia Family history of multiple endocrine neoplasia, type 1 PTSD (post-traumatic stress disorder) Per pt. states no triggers at this time. Surgical History History of laparoscopic cholecystectomy (~11/2023) H/O parathyroidectomy Family History Mother Anxiety Asthma Depression Sister Anxiety Depression Father Cancer lung & stomach Depression Diabetes Hypertension MEN 1 (multiple endocrine neoplasia) Social History Smoking/Tobacco Use Status: Never Smoking risk assessment performed?: Yes Alcohol Intake: never Drug use: Current Sobriety Substance use type: former substance user, crack/cocaine, heroin and painkillers Details: stopped using substances for the past 4 years Adopted: No Caregiver/Support person: No Foster care: No Household members: none Housing: apartment Number of Children: 0 Communication Needs: None Education Level: high school Do you need help understanding health information?: Never current occupation: [employer] Pets and animals: Yes (Ally) Pets and animals: dog(s) Sexually active: No Do you think of yourself as: straight/heterosexual Current gender identity: male What is your relationship status?: How often do you talk on the phone with friends or family?: twice per week How often do you get together with friends or relatives?: never Do you belong to any clubs or organized social groups?: no Panel score (0-1 are the most socially isolated patients): 0 What type of physical activity do you participate in: walking Duration: 15-30 minutes/day Frequency: 5-6 times per week Maryam/Orthodox: Religion Special maryam needs: No Seatbelt use: always Helmet use: Yes Helmet use: always Drive intox or ride w/intox [id number] tank driver: No Do you feel safe at home: Yes Do you feel safe in your relationship?: Yes
== END 2025-02-23 14:45 | disposition home or self-care (01) ==
PROVIDERS: Emergency Provider General Practice
DX: I26.99 Other pulmonary embolism without acute cor pulmonale (principal); R07.9 Chest pain, unspecified
CPT/HCPCS: 36415; 71275; 80053; 93005; 96361; 96374; 96375; 99285; 71046; 83735; 84484; 85025; 85379; 93010; 99284; J1790; J2270; J3490

== ENCOUNTER 2025-02-24 06:38 | Inpatient (IN) | payer OTHER, SELFPAY ==
[2025-02-24] VITALS (48 sets, daily range): BP systolic 107–149; BP diastolic 55–97; PULSE 90–125; RESP 12–31; TEMP 36.9–37.2; O2SAT 83–97
--- NOTE | 2025-02-24 06:45 | RT.EKG_ITS ---
APPROVED REPORT Exam: Resting ECG Reason for Exam: CP, known PE Patient Location: E HR:115 bpm ECG Measurements Heart Rate 115 AXIS VT 174 P 22 QRSd 97 QRS 21 QT 331 T 12 QTc 457 Conclusion Sinus tachycardia, rate 115 No interval abnormalities No STEMI Q wave lead III, most recent EKG (02/23/25) without Q wave though has been demonstrated on other recent EKGs (02/05/25)
--- NOTE | 2025-02-24 07:15 | DI.RAD_ITS ---
Exam(s) XR CHEST 2V PA LATERAL EXAM: XR CHEST 2V PA LATERAL CLINICAL HISTORY: Known PE, L CP. TECHNIQUE: 2D digital imaging was performed. COMPARISON: No exams were available for comparison FINDINGS: 2 views: Heart size is normal. The mediastinum is not widened. Right lung is clear. However, there is significant infiltrate in left lower lobe retrocardiac region. No obvious pleural effusions. IMPRESSION: Significant left lower lobe infiltrate. DATA REPOSITORY: RADIATION DOSE DELIVERED:
--- NOTE | 2025-02-24 07:19 | W.ED.GENAD ---
Discharge Plan Disposition Patient Disposition: Admit to [facility] Condition: Stable Discharge Details Clinical Impression: Bilateral pulmonary embolism, Left pulmonary infiltrate on CXR Primary Care Provider: Unknown,Unknown ED Provider: Tere Adams Home Meds and New Rx's Prescriptions: No Action gabapentin 300 mg capsule 300 mg PO BID Qty: 180 3RF omeprazole 40 mg capsule,delayed release(DR/EC) 40 mg PO DAILY Qty: 90 3RF lorazepam 1 mg tablet 1 mg PO DAILY PRN (Reason: anxiety) Qty: 10 0RF Rx Instructions: Use when considering ER visit cyclobenzaprine 10 mg tablet 10 mg PO TID PRN (Reason: muscle spasm) Qty: 30 3RF methadone 10 mg/5 mL solution 100 mg PO QAM calcitriol 0.5 mcg capsule 1 mcg PO .COMPLEX Qty: 270 3RF Rx Instructions: 1 mcg orally t2 tabs qam and 1 tab QHS; clonazepam 1 mg tablet 1 mg PO BID Qty: 10 0RF calcium carbonate [Tums] 200 mg calcium (500 mg) tablet,chewable 2,000 mg PO BID prochlorperazine maleate 5 mg tablet 5 mg PO TID PRN (Reason: acute nausea) Qty: 30 0RF polyethylene glycol 3350 17 gram powder in packet 17 g PO BID PRN magnesium gluconate 27 mg magnesium (500 mg) tablet 500 mg PO BID Rx Instructions: takes 500mg QAM and 1000mg QHS diclofenac sodium 1 % gel 2 g topical QID Qty: 50 0RF Rx Instructions: apply to single elbow, wrist or hand; for hand includes palm/fingers/back of hand apixaban 5 mg tablet 10 mg PO BID 7 Days Qty: 28 0RF apixaban 5 mg tablet 5 mg PO BID Qty: 120 0RF oxycodone 10 mg tablet 10 mg PO Q6H PRNQty: 14 0RF HPI General Mode of arrival: ambulatory. Date/Time Provider Initiated Documentation: 02/24/25 06:48. Limitations to Documentation: no limitations. Information obtained by: patient and old records reviewed. HPI Narrative: This is a 29-year-old male patient with a past medical history significant for MEN status post parathyroidectomy, and history of JOSE JUAN, IBS, and a recent diagnosis of bilateral pulmonary embolism yesterday, discharged on apixaban, last dose this morning, presenting for evaluation of ongoing/worsening left-sided chest and back/flank pain. The patient reports that he was still having pain when he went home, was given oxycodone and counseled on conservative management. He states that he took that medication last night, and woke up this morning and still feels pain in the area. It feels slightly worsened, is described as feeling similar to a muscle cramp or spasm. He states that he feels like he cannot take a deep breath and has since yesterday, has not had cough or sputum production. States that he has not noted any new leg swelling or tenderness, fever, chills. He feels like his mouth is very dry, but has been able to eat and drink. Of note, the patient was seen here few days ago for neck swelling, and eloped prior to CT. 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 The patient reports that he had an appointment with his PCP today, but did not feel that he could safely drive due to his chest pain and shortness of breath, prompting his presentation to our facility today. [facility] Related Data Home Medications ?Medication ?Instructions ?Recorded ?Confirmed calcium carbonate (Tums) 2,000 mg PO BID 02/02/23 02/24/25 methadone 10 mg/5 mL oral solution 100 mg PO QAM 06/12/23 02/24/25 prochlorperazine maleate 5 mg 5 mg PO TID PRN acute nausea #30 09/06/23 02/24/25 tablet tabs gabapentin 300 mg capsule 300 mg PO BID #180 caps 06/01/24 02/24/25 calcitriol 0.5 mcg capsule 1 mcg (2 x 0.5 mcg) PO .COMPLEX 06/29/24 02/24/25 #270 caps omeprazole 40 mg capsule,delayed 40 mg PO DAILY #90 caps 07/27/24 02/24/25 release polyethylene glycol 3350 17 gram 17 g PO BID PRN 10/15/24 02/24/25 oral powder packet lorazepam 1 mg tablet 1 mg PO DAILY PRN anxiety #10 tabs 10/19/24 02/24/25 cyclobenzaprine 10 mg tablet 10 mg PO TID PRN muscle spasm #30 11/16/24 02/24/25 tabs magnesium gluconate 27 mg 500 mg PO BID 01/30/25 02/24/25 magnesium (500 mg) tablet diclofenac sodium 1 % topical gel 2 g topical QID #50 grams 02/03/25 02/24/25 clonazepam 1 mg tablet 1 mg PO BID #10 tabs 02/08/25 02/24/25 apixaban 5 mg tablet 5 mg PO BID #120 tabs 02/23/25 02/24/25 apixaban 5 mg tablet 10 mg (2 x 5 mg) PO BID 7 days #28 02/23/25 02/24/25 tabs oxycodone 10 mg tablet 10 mg PO Q6H PRN #14 tabs 02/23/25 02/24/25 Previous Rx's ?Medication ?Instructions ?Recorded prochlorperazine maleate 5 mg 5 mg PO TID PRN acute nausea #30 09/06/23 tablet tabs gabapentin 300 mg capsule 300 mg PO BID #180 caps 06/01/24 calcitriol 0.5 mcg capsule 1 mcg (2 x 0.5 mcg) PO .COMPLEX 06/29/24 #270 caps omeprazole 40 mg capsule,delayed 40 mg PO DAILY #90 caps 07/27/24 release lorazepam 1 mg tablet 1 mg PO DAILY PRN anxiety #10 tabs 10/19/24 cyclobenzaprine 10 mg tablet 10 mg PO TID PRN muscle spasm #30 11/16/24 tabs diclofenac sodium 1 % topical gel 2 g topical QID #50 grams 02/03/25 clonazepam 1 mg tablet 1 mg PO BID #10 tabs 02/08/25 apixaban 5 mg tablet 5 mg PO BID #120 tabs 02/23/25 apixaban 5 mg tablet 10 mg (2 x 5 mg) PO BID 7 days #28 02/23/25 tabs oxycodone 10 mg tablet 10 mg PO Q6H PRN #14 tabs 02/23/25 Allergies Allergy/AdvReac Type Severity Reaction Status Date / Time codeine Allergy Intermediate pass out Verified 02/24/25 06:45 Penicillins Allergy Skin Rash Verified 02/24/25 06:45 marijuana (cannabis) AdvReac Severe Paranoia Verified 02/24/25 06:45 amoxicillin AdvReac Intermediate Nausea Verified 02/24/25 06:45 dextromethorphan (From AdvReac Intermediate got Verified 02/24/25 06:45 NyQuil) really hot and sweaty doxylamine (From NyQuil) AdvReac Intermediate got Verified 02/24/25 06:45 really hot and sweaty pseudoephedrine (From NyQuil) AdvReac Intermediate got Verified 02/24/25 06:45 really hot and sweaty General Stated Complaint: Chest Pain ADRIANA: 3 Exam Narrative Exam Narrative: Gen: Awake and alert, in no apparent distress HEENT: Non-icteric sclera Neck: Supple, full range of motion, no external skin changes Lungs: No apparent respiratory distress, mild tachypnea appreciated during speech but normal respiration at rest. Lung sounds clear and equal bilaterally CV: Appears well perfused, heart with tachycardic rate but regular rhythm, strong distal pulses. Chest wall tenderness along the posterior left axillary region with no overlying skin changes, crepitus Abdomen: Non-distended, soft MSK: Moves 4 extremities without apparent limitation in ROM. No unilateral calf swelling or tenderness, no peripheral edema Skin: Visualized skin without rashes, cyanosis. Neuro: Normal Gait, no obvious focal deficits or facial asymmetry. Speaks in full, clear sentences. Psych: Appropriate for situation. Course Vital Signs Vital signs: Vital Signs Temperature 37.2 C 02/24/25 06:43 Pulse 120 H 02/24/25 06:43 Respiratory Rate 20 02/24/25 06:43 Blood Pressure 140/90 02/24/25 06:43 Pulse Oximetry 96 02/24/25 06:43 Temperature 37.2 C 02/24/25 06:43 Temperature Source Tympanic 02/24/25 06:43 Pulse 120 H 02/24/25 06:43 Respiratory Rate 20 02/24/25 06:50 Respiratory Effort Normal 02/24/25 06:50 Respiratory Depth Normal 02/24/25 06:50 Respiratory Pattern Normal 02/24/25 06:50 Blood Pressure 140/90 02/24/25 06:43 Pulse Oximetry 96 02/24/25 06:43 Oxygen Delivery Method Room Air 02/24/25 06:43 Oxygen Flow Rate 0 02/24/25 06:43 Pain Level 8 02/24/25 06:50 Medical Decision Making This is a 29-year-old male patient presenting for evaluation of ongoing left-sided chest/back pain and shortness of breath in the setting of recently diagnosed bilateral pulmonary embolisms. My differential includes but is not limited to pleuritic pain due to pulmonary embolism, certainly considered pulmonary infarct, pneumonia due to hypoventilation. Considered extension of the PE, though the patient is reassuringly without new hypoxia or significant worsening of his baseline tachycardia, and the brief duration of apixaban dosing (patient has taken 3 doses) does not necessarily suggest treatment failure. I note no overlying skin changes to suggest zoster, no trauma to suggest musculoskeletal abnormalities such as rib fracture, though costochondritis and chest wall pain could certainly be considered. The patient is without significant risk factors for ACS, though this, pericarditis and myocarditis, right heart strain was suggested. Reassuringly, no evidence of right heart strain on yesterday's CT scan. No prior history of aortic pathology and no aortic pathology was visualized on the CT scan obtained yesterday. No abdominal symptoms to suggest gastritis, esophagitis, PUD, pericarditis. We obtained and I reviewed an EKG, which shows a sinus tachycardia with a rate of 115, no interval abnormalities, the patient does have a Q wave in lead III, which while not demonstrated on yesterday's EKG has been present on other recent EKGs, no STEMI. I had an extended discussion with the patient regarding pulmonary embolism symptoms and treatment, counseling him on early movement, adequate multimodal pain management, adherence to anticoagulation and outpatient follow-up. Today, given the ongoing/worsening pain, it is reasonable for us to move forward with an evaluation to include chest x-ray to examine for opacities that might be suggestive of infarct/hemorrhage or pneumonia, and laboratory studies to include CBC, CMP, magnesium, troponin, and BNP to evaluate for evidence of heart strain. I performed a bedside echo, which shows preserved ejection fraction and no evidence of right heart strain such as dilation or septal flattening. -I reviewed the patient's laboratory studies, which does show a slight leukocytosis to 12.4, stable anemia and no thrombocytopenia. Chemistry panel is without electrolyte derangement, the patient's kidney function is at his baseline with a creatinine of 2.1, no evidence of new liver dysfunction. Troponin is negative and without interval increase in 1 hour delta recheck to suggest active ischemia, BNP low, and my concern for severe right heart strain is quite low based on these labs and my echo. I reviewed the patient's chest x-ray, which does show a new left lobar opacity concerning for infarct versus infection. The patient is noted to have transient dips in his oxygen saturation, typically saturating at 95% on room air, will dip into the 80s, as low as 85 to 86%, and then improved spontaneously without the need for supplemental oxygen. I had a shared decision-making conversation with the patient, as I do feel that an observation admission may be warranted given the rapid development of what is likely a pulmonary infarct, and the potential for this to worsen and his hypoxia to require intervention. Given the potential for infection with the mild leukocytosis and new opacity I also provided the patient with his first dose of antibiosis for pneumonia, azithromycin given the patient's history of penicillin allergy. QTc 457 on EKG, not particularly prolonged despite his history of methadone use. I discussed the case with the hospitalist who recommended repeat CT to evaluate for progressive or obstructive large vessel clots that would warrant thrombectomy. This study was performed, the patient's clot burden has not decreased, and he has demonstration of a left lower lobe infiltrate with a small left pleural effusion, infarct versus infection or potentially both are the primary concern. The patient did develop an episode of persistent hypoxia to 84%, placed on 1 L/min of oxygen by nasal cannula. I discussed the case with the hospitalist on the patient and ultimately this patient will be admitted to the hospital for ongoing management of his hypoxia, likely left pulmonary infarct plus or minus infection, and bilateral pulmonary embolisms. The patient remained hemodynamically appropriate while under my care was transferred from this department without incident. Tere Adams MD Quality:SDOH Health Related Social Needs: Health related social needs daily activities PFSH All Active Problems (Updated 02/24/25 @ 10:31 by Tere Adams MD) Left pulmonary infiltrate on CXR (Acute) Bilateral pulmonary embolism (Acute) Tenderness of neck (Acute) Right elbow pain (Acute) Acute leg pain (Acute) Bronchitis (Acute) Well adult health check (Acute) Obstructive sleep apnea (Chronic) Metabolic dysfunction-associated fatty liver disease (MAFLD) (Acute) Fatty liver (Acute) IBS (irritable bowel syndrome) (Chronic) Obesity (Chronic) Migraine with aura (Acute) Testicle lump (Acute) Pes anserine bursitis (Acute) Left-sided Flower's palsy (Acute) Opiate dependence, continuous (Acute) 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 Possible 2' Methadone, Clnzpm (?). Surg eval (+)/No further action. History of electrolyte imbalance (Acute) Neck pain on left side (Acute) with shoulder, upper back pain.. torticollis, radiating into left hip/leg Pulmonary nodule 1 cm or greater in diameter (Chronic) Therapeutic opioid induced constipation (Acute) Sphincter of Oddi dysfunction (Chronic) Abnormal CT scan, kidney (Acute) Intrahepatic bile duct dilation (Acute) Common bile duct dilatation (Chronic) Has been dilated for quite some time, now more-so. Normal LFTs. Known gallstones. Depression (Chronic) Elevated parathyroid hormone (Acute) Family history of coronary arteriosclerosis (Chronic) Father of IN at 50, mother had IN at 42 Severe anxiety with panic (Chronic) Medical History Multiple endocrine neoplasia type I CKD (chronic kidney disease) stage 2, GFR 60-89 ml/min GFR 64-65, with Hx FLORESITA and GFR < 45 Primary hyperparathyroidism Complex medical condition Serious electrolyte imbalances, with gynecomastia, possible MEN Dx, CKD and anemia with baseline anxiety and Hx PTSD. Hypocalcemia Anxiety Depression Hyperlipidemia Family history of multiple endocrine neoplasia, type 1 PTSD (post-traumatic stress disorder) Per pt. states no triggers at this time. Surgical History History of laparoscopic cholecystectomy (~11/2023) H/O parathyroidectomy Family History Mother Anxiety Asthma Depression Sister Anxiety Depression Father Cancer lung & stomach Depression Diabetes Hypertension MEN 1 (multiple endocrine neoplasia) Social History Smoking/Tobacco Use Status: Never Smoking risk assessment performed?: Yes Alcohol Intake: never Drug use: Current Sobriety Substance use type: former substance user, crack/cocaine, heroin and painkillers Details: stopped using substances for the past 4 years Adopted: No Caregiver/Support person: No Foster care: No Household members: none Housing: apartment Number of Children: 0 Communication Needs: None Education Level: high school Do you need help understanding health information?: Never current occupation: [employer] Pets and animals: Yes (Ally) Pets and animals: dog(s) Sexually active: No Do you think of yourself as: straight/heterosexual Current gender identity: male What is your relationship status?: How often do you talk on the phone with friends or family?: twice per week How often do you get together with friends or relatives?: never Do you belong to any clubs or organized social groups?: no Panel score (0-1 are the most socially isolated patients): 0 What type of physical activity do you participate in: walking Duration: 15-30 minutes/day Frequency: 5-6 times per week Maryam/Caodaism: [employer]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 Special maryam needs: No Seatbelt use: always Helmet use: Yes Helmet use: always Drive intox or ride w/intox drivers' cash clerk: No Do you feel safe at home: Yes Do you feel safe in your relationship?: Yes POCUS Exam (ED) Limited Cardiac Exam DATE OF EXAM: 02/24/25 TIME OF EXAM: 08:16 PROVIDER THAT PERFORMED THE STUDY: Tere Adams REASON FOR EXAM: Right heart strain/PE VISUALIZED STRUCTURES: Four Chambers, LVOT, Aortic valve, Mitral valve and Interventricular septum VIEW OBTAINED: Apical 4-Chamber, Parasternal long-axis, Parasternal short-axis and Subxiphoid PERTINENT FINDINGS/IMPRESSION: No LV dysfunction, No pericardial effusion and No RV dysfunction (No dilation, no septal flattening/d-sign) Exam complete
[2025-02-24] MEDS: Acetaminophen 500 MG TAB 1000 MG PO (07:34)
[2025-02-24] MEDS: Ketorolac 15 MG/ML VIAL IVP (07:35)
[2025-02-24 07:44] LABS: Abs Immature Grans 0.05 10^3/uL (0.0-0.06); HCT 32.7 % (40.0-50.0); HGB 10.1 g/dL (13.5-17.5); Immature Grans % 0.4 %; MCH 26.2 pg (27.0-33.0); MCHC 30.9 % (32.0-36.0); MCV 85 fL (80-95); MPV 9.9 fL (8.0-11.0); Platelet Count 340 10^3/uL (130-400); RBC 3.85 10^6/uL (4.36-5.78); RDW 17.1 % (11.8-14.1); RDW-SD 51.7 fL; WBC 12.48 10^3/uL (4.4-10.8)
[2025-02-24 08:14] LABS: ALT 55 U/L (16-63); AST 44 U/L (15-37); Albumin 3.4 g/dL (3.4-5.0); Alkaline Phosphatase 184 U/L (46-116); Anion Gap 5.3 mmol/L (3-11); BUN 10 mg/dL (7-18); Bilirubin, Total 0.5 mg/dL (0.2-1.0); CO2 32.7 mmol/L (21.0-32.0); Calcium 10.8 mg/dL (8.5-10.1); Chloride 99 mmol/L (98-107); Estimated GFR 42.36 (mL/min/1.73m2); Glucose 128 mg/dL (74-106); Magnesium 1.9 mg/dL (1.8-2.4); NT-proBNP 55 pg/mL (<300); Potassium 3.7 mmol/L (3.5-5.1); Sodium 137 mmol/L (136-145); Total Protein 8.6 g/dL (6.4-8.2)
[2025-02-24 08:16] LABS: Troponin I < 4 ng/L (<or=76)
--- NOTE | 2025-02-24 08:31 | DI.VRAD_ITS ---
PROCEDURE INFORMATION: Exam: XR Chest Exam date and time: 02/24/2025 7:49 AM Age: 29 years old Clinical indication: Pain; Left-sided; Known pe, L cp TECHNIQUE: Imaging protocol: Radiologic exam of the chest. Views: 2 views. COMPARISON: CT CHEST PE CTA 02/23/2025 1:17 PM FINDINGS: Lungs: Bibasilar opacities, likely atelectasis. Pleural spaces: No large pleural effusion seen. Heart/Mediastinum: No cardiomegaly. Bones/joints: No acute abnormality. IMPRESSION: Bibasilar opacities, likely atelectasis. Pneumonia not excluded. Follow-up if clinically warranted. Dictated and Authenticated by: Susana Smith MD. Orderin [facility]. Sheldon Carranza MD
[2025-02-24 08:36] LABS: Troponin I 4 ng/L (<or=76)
[2025-02-24] MEDS: AZITHROMYCIN 500 MG in Normal Saline 250 ML 250 MG IVPB (08:38)
[2025-02-24] MEDS: Normal Saline - Diluent 50 ML VIAL IJ (09:31)
[2025-02-24] MEDS: Normal Saline Flush 10 ML SYR IVP ×2 (09:35→20:44)
[2025-02-24] MEDS: Omnipaque 350 MG/ML 500 ML BTL-Imaging package IJ (09:36)
--- NOTE | 2025-02-24 09:40 | DI.CT_ITS ---
Exam(s) CT CHEST PE CTA EXAM: CT CHEST PE CTA CLINICAL HISTORY: new L. lobar opacity, c/f infarct, known PEs. TECHNIQUE: Imaging Protocol: CT angiography of the chest was performed using pulmonary embolus protocol. Multi planar reconstructions were performed. CONTRAST MATERIAL: Intravenous: Omnipaque 350 Contrast volume: 100 cc COMPARISON: CT CT CHEST PE CTA from 02/23/2025 FINDINGS: CHEST: PULMONARY ARTERIES/LUNGS: There are again noted bilateral intra-arterial filling defects within pulmonary arteries of both lungs involving all lobes of the right lung starting in the distal right main pulmonary artery and there are also intraluminal thrombi in the left lung vessels, as described on yesterday's report. There is no improvement. Small left pleural effusions again noted. However, there is now confluent infiltrate in the posterior basal and lateral basal segments of the left lower lobe not present yesterday and possibly representing pulmonary infarct or infectious etiology. There is also less confluent but increasing infiltrate in the left lower lobe medial to the above finding in the posterior basal segment of the left lower lobe. The ground-glass infiltrates which were evident in the upper lobes on yesterday's study are not seen on today's study which is most probably related to the fact that today's inspiratory effort was better than yesterday's. There is some increasing ate lectasis in the right lower lobe. No right pleural effusion evident. Bilateral gynecomastia again noted. MEDIASTINUM: There is no hilar nor mediastinal adenopathy. CARDIAC: Heart size is upper normal. There is no pericardial effusion.Caliber of the thoracic aorta is within normal limits. There is no evidence of aortic dissection. Ventricular ratio is 1:1. There is no reflux of injected IV contrast into the intrahepatic IVC. PARTIALLY VISUALIZED UPPERMOST ABDOMEN: Gallbladder surgically absent. Hepatic steatosis. No ascites. No splenomegaly. Tiny granuloma noted in the lateral aspect of the spleen. No adrenal masses. No obvious pancreatic mass. OSSEOUS: No fractures. No significant osseous lesions.. IMPRESSION: 1. Extensive bilateral pulmonary emboli again noted. No improvement in clot load when compared to yesterday's CT scan. 2. Significant increase in pleural based infiltrate in the left lower lobe which may represent pulmonary infarct. Cannot exclude infectious etiology. Small left pleural effusion is again evident. Report called by myself to ER physician 02/24/2025 at 10:10 a.m. RADIATION DOSE DELIVERED: 355.49mGy.cm Total DLP DATA REPOSITORY: All CT scans at this facility are submitted to the National Radiology Data Registry (NRDR) Dose Index Registry (DIR) with the [employer] [place] [employer] ([employer]). RADIATION OPTIMIZATION: All CT scans at this facility use at least one of these dose optimization techniques: automated exposure control; mA and/or kV adjustment per patient size (includes targeted exams where dose is matched to clinical indication); or iterative reconstruction.
[2025-02-24 10:14] LABS: COVID-19 PCR Negative (Negative); RSV PCR Negative (Negative)
--- NOTE | 2025-02-24 10:53 | W.PM.HP.N ---
Date of service: 02/24/25 Time of Service: 10:00 Assessment and Plan Assessment and plan (1) Pulmonary embolism and infarction: Status: Acute Assessment and plan: Multifocal PE diagnosed by CTA on February 22, discharged on apixaban Unlikely apixaban failure CTA on return showing possible enlargement of infarct area Will put on heparin drip overnight Requested pulm consult History of Present Illness History of Present Illness Chief Complaint: left flank pain Narrative: Pedro Pablo Cortes is a 29 year old man presenting February 23 with left chest wall and flank pain worsening since his February 22 diagnosis of multifocal PE. He reports that he took his pills (apixaban) as directed. He has pain with deep inspiration. He denies abdominal pain, N/V/D. PFSH All Active Problems (Updated 02/24/25 @ 20:29 by Florentin Valentin MD) Pulmonary embolism and infarction (Acute) Left pulmonary infiltrate on CXR (Acute) Bilateral pulmonary embolism (Acute) Tenderness of neck (Acute) Right elbow pain (Acute) Acute leg pain (Acute) Bronchitis (Acute) Well adult health check (Acute) Obstructive sleep apnea (Chronic) Metabolic dysfunction-associated fatty liver disease (MAFLD) (Acute) Fatty liver (Acute) IBS (irritable bowel syndrome) (Chronic) Obesity (Chronic) Migraine with aura (Acute) Testicle lump (Acute) Pes anserine bursitis (Acute) Left-sided Flower's palsy (Acute) Opiate dependence, continuous (Acute) 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 Possible 2' Methadone, Clnzpm (?). Surg eval (+)/No further action. History of electrolyte imbalance (Acute) Neck pain on left side (Acute) with shoulder, upper back pain.. torticollis, radiating into left hip/leg Pulmonary nodule 1 cm or greater in diameter (Chronic) Therapeutic opioid induced constipation (Acute) Sphincter of Oddi dysfunction (Chronic) Abnormal CT scan, kidney (Acute) Intrahepatic bile duct dilation (Acute) Common bile duct dilatation (Chronic) Has been dilated for quite some time, now more-so. Normal LFTs. Known gallstones. Depression (Chronic) Elevated parathyroid hormone (Acute) Family history of coronary arteriosclerosis (Chronic) Father of [place] at 50, mother had [place] at 42 Severe anxiety with panic (Chronic) Medical History Multiple endocrine neoplasia type I CKD (chronic kidney disease) stage 2, GFR 60-89 ml/min GFR 64-65, with Hx FLORESITA and GFR < 45 Primary hyperparathyroidism Complex medical condition Serious electrolyte imbalances, with gynecomastia, possible MEN Dx, CKD and anemia with baseline anxiety and Hx PTSD. Hypocalcemia Anxiety Depression Hyperlipidemia Family history of multiple endocrine neoplasia, type 1 PTSD (post-traumatic stress disorder) Per pt. states no triggers at this time. Surgical History History of laparoscopic cholecystectomy (~11/2023) H/O parathyroidectomy Family History Mother Anxiety Asthma Depression Sister Anxiety Depression Father Cancer lung & stomach Depression Diabetes Hypertension MEN 1 (multiple endocrine neoplasia) Social History Smoking/Tobacco Use Status: Never Smoking risk assessment performed?: Yes Alcohol Intake: never Drug use: Current Sobriety Substance use type: former substance user, crack/cocaine, heroin and painkillers Details: stopped using substances for the past 4 years Adopted: No Caregiver/Support person: No Foster care: No Household members: none Housing: apartment Number of Children: 0 Communication Needs: None Education Level: high school Do you need help understanding health information?: Never current occupation: [employer] Pets and animals: Yes (Ally) Pets and animals: dog(s) Sexually active: No Do you think of yourself as: straight/heterosexual Current gender identity: male What is your relationship status?: How often do you talk on the phone with friends or family?: twice per week How often do you get together with friends or relatives?: never Do you belong to any clubs or organized social groups?: no Panel score (0-1 are the most socially isolated patients): 0 What type of physical activity do you participate in: walking Duration: 15-30 minutes/day Frequency: 5-6 times per week Maryam/Hinduism: Religious Special maryam needs: No Seatbelt use: always Helmet use: Yes Helmet use: always Drive intox or ride w/intox log driver: No Do you feel safe at home: Yes Do you feel safe in your relationship?: Yes Meds Allergies and Home Medications Allergies Allergy/AdvReac Type Severity Reaction Status Date / Time codeine Allergy Intermediate pass out Verified 02/24/25 06:45 Penicillins Allergy Skin Rash Verified 02/24/25 06:45 marijuana (cannabis) AdvReac Severe Paranoia Verified 02/24/25 06:45 amoxicillin AdvReac Intermediate Nausea Verified 02/24/25 06:45 dextromethorphan (From AdvReac Intermediate got Verified 02/24/25 06:45 NyQuil) really hot and sweaty doxylamine (From NyQuil) AdvReac Intermediate got Verified 02/24/25 06:45 really hot and sweaty pseudoephedrine (From NyQuil) AdvReac Intermediate got Verified 02/24/25 06:45 really hot and sweaty Home Medications ?Medication ?Instructions ?Recorded ?Confirmed ?Type calcium carbonate (Tums) 2,000 mg PO BID 02/02/23 02/24/25 History methadone 10 mg/5 mL oral solution 100 mg PO QAM 06/12/23 02/24/25 History prochlorperazine maleate 5 mg 5 mg PO TID PRN acute nausea #30 09/06/23 02/24/25 Rx tablet tabs gabapentin 300 mg capsule 300 mg PO BID #180 caps 06/01/24 02/24/25 Rx calcitriol 0.5 mcg capsule 1 mcg (2 x 0.5 mcg) PO .COMPLEX 06/29/24 02/24/25 Rx #270 caps omeprazole 40 mg capsule,delayed 40 mg PO DAILY #90 caps 07/27/24 02/24/25 Rx release polyethylene glycol 3350 17 gram 17 g PO BID PRN 10/15/24 02/24/25 History oral powder packet lorazepam 1 mg tablet 1 mg PO DAILY PRN anxiety #10 tabs 10/19/24 02/24/25 Rx cyclobenzaprine 10 mg tablet 10 mg PO TID PRN muscle spasm #30 11/16/24 02/24/25 Rx tabs magnesium gluconate 27 mg 500 mg PO BID 01/30/25 02/24/25 History magnesium (500 mg) tablet diclofenac sodium 1 % topical gel 2 g topical QID #50 grams 02/03/25 02/24/25 Rx clonazepam 1 mg tablet 1 mg PO BID #10 tabs 02/08/25 02/24/25 Rx apixaban 5 mg tablet 5 mg PO BID #120 tabs 02/23/25 02/24/25 Rx apixaban 5 mg tablet 10 mg (2 x 5 mg) PO BID 7 days #28 02/23/25 02/24/25 Rx tabs oxycodone 10 mg tablet 10 mg PO Q6H PRN #14 tabs 02/23/25 02/24/25 Rx Exam Narrative Exam Narrative: General: This is a pleasant man in no acute distress HEENT: Normocephalic, atraumatic CV: RRR Resp: CTAB Abd: soft, NTND MSK: voluntary motion x4 Neuro: awake, alert, no focal deficits Results Labs 02/24/25 07:27 02/24/25 07:27 Labs: Laboratory Results - last 24 hr 02/24/25 02/24/25 02/24/25 07:27 08:08 09:25 WBC 12.48 H RBC 3.85 L Hgb 10.1 L Hct 32.7 L MCV 85 MCH 26.2 L MCHC 30.9 L RDW 17.1 H Plt Count 340 MPV 9.9 Immature Gran % 0.4 Neutrophils % 79.4 Lymphocytes % 10.6 Monocytes % 8.4 Eosinophils % 1.0 Basophils % 0.2 Nucleated RBC % 0.0 Absolute Neutrophils 9.91 H Absolute Lymphocytes 1.32 Absolute Monocytes 1.05 H Absolute Eosinophils 0.12 Absolute Basophils 0.02 Sodium 137 Potassium 3.7 Chloride 99 Carbon Dioxide 32.7 H Anion Gap 5.3 BUN 10 Creatinine 2.1 H Est GFR (CKD-EPI 2020) 42.36 Glucose 128 H Calcium 10.8 H Magnesium 1.9 Total Bilirubin 0.5 AST 44 H ALT 55 Alkaline Phosphatase 184 H Troponin I < 4 4 NT-Pro-B Natriuret Pep 55 Total Protein 8.6 H Albumin 3.4 COVID-19 Source Nasopharynx SARS-CoV-2 (PCR) Negative Influenza Type A (PCR) Negative Influenza Type B (PCR) Negative RSV (PCR) Negative 02/24/25 10:17 WBC RBC Hgb Hct MCV MCH MCHC RDW Plt Count MPV Immature Gran % Neutrophils % Lymphocytes % Monocytes % Eosinophils % Basophils % Nucleated RBC % Absolute Neutrophils Absolute Lymphocytes Absolute Monocytes Absolute Eosinophils Absolute Basophils Sodium Potassium Chloride Carbon Dioxide Anion Gap BUN Creatinine Est GFR (CKD-EPI 2020) Glucose Calcium Magnesium Total Bilirubin AST ALT Alkaline Phosphatase Troponin I Cancelled NT-Pro-B Natriuret Pep Total Protein Albumin COVID-19 Source SARS-CoV-2 (PCR) Influenza Type A (PCR) Influenza Type B (PCR) RSV (PCR) Last Vital Signs Temp 37.2 C 02/24/25 06:43 Pulse 103 H 02/24/25 10:20 Resp 17 02/24/25 10:20 BP 117/64 02/24/25 10:16 Pulse Ox 97 02/24/25 10:20 Time Spent Time spent with Patient: 40-54 minutes Time was spent: preparing to see the patient(eg.review tests), obtaining and/or reviewing separately otained hiistory, ordering medications,tests, procedures, referring, communicating with other health animal caregiver, indepentently interpreting results, counseling the patient and care coordination
[2025-02-24] MEDS: Acetaminophen 325 MG TAB 650 MG PO ×2 (11:36→17:10)
[2025-02-24] MEDS: oxyCODONE 10 MG TAB PO (12:28)
--- NOTE | 2025-02-24 12:54 | W.PULMCON ---
General Date Of Service Date of service: 02/24/25 Time of Service: 12:30 Requesting physician: Florentin Valentin Reason for Consult: Pulmoinary embolism Recommendations: Assessment: 1. Pulmonary embolism - unprovoked, recurrent. Hemodynamically stable. No significant hypoxia 2. Left pleural effusion 3. Pulmonary infiltrate - left lower lobe. Suspect pulmonary infarction. Lower suspicion for acute pneumonia. Patchy ground glass opacities also noted. May be related to VTE or possible occupational exposures. Recommendations: - can continue apixaban for anticoagulation. Given recurrence, family history of VTE, and unprovoked nature, recommend indefinite anticoagulation at this time - my suspicion for acute pneumonia is rather low at this time, however, given leukocytosis, azithromycin is reasonable - pain control per primary team - the left pleural effusion is very small/trace so no need for thoracentesis at this time. Suspect this is related to pulmonary infarction from pulmonary emboli, and resulting pleural inflammation - will see in clinic for follow up and to complete a hypercoagulable workup Discussed with Dr. Valentin History of Present Illness Narrative: Patient is a 29 yo with a history of right leg DVT, morbid obesity, and CKD, who was admitted on 02/24 for left sided chest pain and bilateral pulmonary emboli. He was seen in the ED a day prior and diagnosed with acute, bilateral pulmonary emboli. Was discharged on eliquis. Came back to the ED due to worsening, sharp, pleuritic, left chest pain. Repeat CTa chest showed a left lower lobe infiltrate, trace left pleural effusion and bilateral pulmonary emboli. He has a history of a right leg DVT a few years prior. Reported that his grandmother also had a multiple clots. 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 His left sided chest pain has improved. Currently on 1 L O2 with SpO2 in the upper 90's. Denies any fevers. No cough or sputum production. No hemoptysis. Family history: grandmother - clots Smoking history: denied Exposure history: construction dusts, paint fumes ROS: 10 pt ROS negative except as in HPI PFSH All Active Problems (Updated 02/24/25 @ 10:31 by Tere Adams MD) Left pulmonary infiltrate on CXR (Acute) Bilateral pulmonary embolism (Acute) Tenderness of neck (Acute) Right elbow pain (Acute) Acute leg pain (Acute) Bronchitis (Acute) Well adult health check (Acute) Obstructive sleep apnea (Chronic) Metabolic dysfunction-associated fatty liver disease (MAFLD) (Acute) Fatty liver (Acute) IBS (irritable bowel syndrome) (Chronic) Obesity (Chronic) Migraine with aura (Acute) Testicle lump (Acute) Pes anserine bursitis (Acute) Left-sided Flower's palsy (Acute) Opiate dependence, continuous (Acute) 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 Possible 2' Methadone, Clnzpm (?). Surg eval (+)/No further action. History of electrolyte imbalance (Acute) Neck pain on left side (Acute) with shoulder, upper back pain.. torticollis, radiating into left hip/leg Pulmonary nodule 1 cm or greater in diameter (Chronic) Therapeutic opioid induced constipation (Acute) Sphincter of Oddi dysfunction (Chronic) Abnormal CT scan, kidney (Acute) Intrahepatic bile duct dilation (Acute) Common bile duct dilatation (Chronic) Has been dilated for quite some time, now more-so. Normal LFTs. Known gallstones. Depression (Chronic) Elevated parathyroid hormone (Acute) Family history of coronary arteriosclerosis (Chronic) Father of NH at 50, mother had NH at 42 Severe anxiety with panic (Chronic) Medical History Multiple endocrine neoplasia type I CKD (chronic kidney disease) stage 2, GFR 60-89 ml/min GFR 64-65, with Hx FLORESITA and GFR < 45 Primary hyperparathyroidism Complex medical condition Serious electrolyte imbalances, with gynecomastia, possible MEN Dx, CKD and anemia with baseline anxiety and Hx PTSD. Hypocalcemia Anxiety Depression Hyperlipidemia Family history of multiple endocrine neoplasia, type 1 PTSD (post-traumatic stress disorder) Per pt. states no triggers at this time. Surgical History History of laparoscopic cholecystectomy (~11/2023) H/O parathyroidectomy Family History Mother Anxiety Asthma Depression Sister Anxiety Depression Father Cancer lung & stomach Depression Diabetes Hypertension MEN 1 (multiple endocrine neoplasia) Social History Smoking/Tobacco Use Status: Never Smoking risk assessment performed?: Yes Alcohol Intake: never Drug use: Current Sobriety Substance use type: former substance user, crack/cocaine, heroin and painkillers Details: stopped using substances for the past 4 years Adopted: No Caregiver/Support person: No Foster care: No Household members: none Housing: apartment Number of Children: 0 Communication Needs: None Education Level: high school Do you need help understanding health information?: Never 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 [employer] Pets and animals: Yes (Ally) Pets and animals: dog(s) Sexually active: No Do you think of yourself as: straight/heterosexual Current gender identity: male What is your relationship status?: How often do you talk on the phone with friends or family?: twice per week How often do you get together with friends or relatives?: never Do you belong to any clubs or organized social groups?: no Panel score (0-1 are the most socially isolated patients): 0 What type of physical activity do you participate in: walking Duration: 15-30 minutes/day Frequency: 5-6 times per week Maryam/Jewish: Islam Special maryam needs: No Seatbelt use: always Helmet use: Yes Helmet use: always Drive intox or ride w/intox train driver: No Do you feel safe at home: Yes Do you feel safe in your relationship?: Yes Visit Medication and Allergies Active Medications Generic Name Dose Route Start Last Admin Trade Name Rich PRN Reason Stop Dose Admin Acetaminophen 650 mg 02/24/25 10:47 02/24/25 11:36 Acetaminophen 325 Mg Tab PO 650 mg Q4H PRN PRN Administration Cyclobenzaprine HCl 10 mg 02/24/25 11:23 Cyclobenzaprine 10 Mg Tab PO TID PRN PRN Muscle Spasm Gabapentin 300 mg 02/24/25 20:00 Gabapentin 300 Mg Cap PO BID [facility] Heparin Sodium/Sodium Chloride 25,000 unit in 250 mls @ 0 mls/hr 02/24/25 11:30 IVINF INFUSION LUIS ENRIQUE Protocol Per Protocol IV Miscellaneous Supplies 1 each 02/24/25 07:30 Iv Access-Emergency Dept IV DIRECTED [facility] Iohexol 500 ml 02/24/25 09:30 02/24/25 09:36 Omnipaque 350 Mg/Ml 500 Ml Btl-Imaging Package IJ 03/26/25 23:59 100 ml DIRECTED LUIS ENRIQUE Administration Methadone HCl 105 mg 02/25/25 08:30 Methadone Liquid 10 Mg/Ml PO QAM [facility] Omeprazole 40 mg 02/25/25 07:30 Omeprazole 20 Mg Capcr PO DAILY@0730 [facility] Oxycodone HCl 5 mg 02/24/25 12:22 Oxycodone 5 Mg Tab PO Q4H PRN PRN Polyethylene Glycol 17 gm 02/24/25 10:47 Polyethylene Glycol 3350 17 Gm Packet PO DAILY PRN PRN Constipation Polyethylene Glycol 17 gm 02/24/25 11:23 Polyethylene Glycol 3350 17 Gm Packet PO BID PRN PRN Sodium Chloride 0 ml 02/24/25 07:16 Normal Saline Flush 10 Ml Syr IVP PRN PRN Sodium Chloride 0 ml 02/24/25 08:30 02/24/25 09:35 Normal Saline Flush 10 Ml Syr IVP 10 ml BID LUIS ENRIQUE Administration Sodium Chloride 0 ml 02/24/25 07:16 Normal Saline 10 Ml Vial IJ DIRECTED PRN Sodium Chloride 0 ml 02/24/25 09:29 Normal Saline Flush 10 Ml Syr IVP PRN PRN Sodium Chloride 50 ml 02/24/25 09:30 02/24/25 09:31 Normal Saline - Diluent 50 Ml Vial IJ 50 ml DIRECTED LUIS ENRIQUE Administration Allergies codeine Allergy (Intermediate, Verified 02/24/25 06:45) pass out Penicillins Allergy (Verified 02/24/25 06:45) Skin Rash marijuana (cannabis) Adverse Reaction (Severe, Verified 02/24/25 06:45) Paranoia amoxicillin Adverse Reaction (Intermediate, Verified 02/24/25 06:45) Nausea dextromethorphan (From NyQuil) Adverse Reaction (Intermediate, Verified 02/24/25 06:45) got really hot and sweaty doxylamine (From NyQuil) Adverse Reaction (Intermediate, Verified 02/24/25 06:45) got really hot and sweaty pseudoephedrine (From NyQuil) Adverse Reaction (Intermediate, Verified 02/24/25 06:45) got really hot and sweaty Exam Narrative Exam Narrative: General: alert, no acute distress Head: normocephalic ENT: no stridor, trachea midline CV: normal rate, regular rhythm Respiratory: no wheezing, no crackles, no rhonchi, no prolonged expiration GI: abd soft, non-tender, non-distended Skin: no rashes Extremities: trace edema, no digital clubbing Psych: normal affect Results Last Vital Signs Temp 37.2 C 02/24/25 06:43 Pulse 90 02/24/25 11:30 Resp 17 02/24/25 11:30 BP 112/62 02/24/25 11:16 Pulse Ox 93 02/24/25 11:30 Labs 02/24/25 07:27 02/24/25 07:27 Labs: Laboratory Results - last 24 hr 02/24/25 02/24/25 02/24/25 07:27 08:08 09:25 WBC 12.48 H RBC 3.85 L Hgb 10.1 L Hct 32.7 L MCV 85 MCH 26.2 L MCHC 30.9 L RDW 17.1 H Plt Count 340 MPV 9.9 Immature Gran % 0.4 Neutrophils % 79.4 Lymphocytes % 10.6 Monocytes % 8.4 Eosinophils % 1.0 Basophils % 0.2 Nucleated RBC % 0.0 Absolute Neutrophils 9.91 H Absolute Lymphocytes 1.32 Absolute Monocytes 1.05 H Absolute Eosinophils 0.12 Absolute Basophils 0.02 Sodium 137 Potassium 3.7 Chloride 99 Carbon Dioxide 32.7 H Anion Gap 5.3 BUN 10 Creatinine 2.1 H Est GFR (CKD-EPI 2020) 42.36 Glucose 128 H Calcium 10.8 H Magnesium 1.9 Total Bilirubin 0.5 AST 44 H ALT 55 Alkaline Phosphatase 184 H Troponin I < 4 4 NT-Pro-B Natriuret Pep 55 Total Protein 8.6 H Albumin 3.4 COVID-19 Source Nasopharynx SARS-CoV-2 (PCR) Negative Influenza Type A (PCR) Negative Influenza Type B (PCR) Negative RSV (PCR) Negative 02/24/25 10:17 WBC RBC Hgb Hct MCV MCH MCHC RDW Plt Count MPV Immature Gran % Neutrophils % Lymphocytes % Monocytes % Eosinophils % Basophils % Nucleated RBC % Absolute Neutrophils Absolute Lymphocytes Absolute Monocytes Absolute Eosinophils Absolute Basophils Sodium Potassium Chloride Carbon Dioxide Anion Gap BUN Creatinine Est GFR (CKD-EPI 2020) Glucose Calcium Magnesium Total Bilirubin AST ALT Alkaline Phosphatase Troponin I Cancelled NT-Pro-B Natriuret Pep Total Protein Albumin COVID-19 Source SARS-CoV-2 (PCR) Influenza Type A (PCR) Influenza Type B (PCR) RSV (PCR) Imaging CT scan - chest: report reviewed and image reviewed
[2025-02-24 13:57] LABS: PTT Activated 29.2 sec (20.6-30.2)
[2025-02-24] MEDS: Heparin in 0.45% NaCl 25,000 UNIT/250 ML BAG 18 UNIT IVINF ×2 (13:57→23:06)
--- NOTE | 2025-02-24 14:40 | W.PC.ACHO ---
Registration Status: ADM IN Primary Language: Preferred Language: Macedonian ED Information & Data Chief Complaint Chest Pain 02/24/25 07:24 Triage Note PT states that every time he 02/24/25 06:43 breathes in he has pain on the left side of his chest. Medical / Surgical History (Updated 02/24/25 @ 10:31 by Tere Adams MD) Multiple endocrine neoplasia type I CKD (chronic kidney disease) stage 2, GFR 60-89 ml/min Primary hyperparathyroidism Complex medical condition Hypocalcemia Anxiety Depression Hyperlipidemia Family history of multiple endocrine neoplasia, type 1 PTSD (post-traumatic stress disorder) (Updated 11/26/23 @ 14:49 by Adrianna Lisa) History of laparoscopic cholecystectomy (~11/2023) H/O parathyroidectomy Most Recent Vital Signs Temperature 36.9 C 02/24/25 13:35 Temperature Source Temporal Artery Scan 02/24/25 13:35 Pulse 91 H 02/24/25 13:35 Pulse 90 02/24/25 11:30 Respiratory Rate 16 02/24/25 13:35 Respiratory Effort Normal 02/24/25 06:50 Respiratory Depth Normal 02/24/25 06:50 Respiratory Pattern Normal 02/24/25 06:50 Blood Pressure 134/78 02/24/25 13:35 Blood Pressure Mean 96 02/24/25 13:35 Pulse Oximetry 97 02/24/25 13:35 Oxygen Delivery Method Nasal Cannula 02/24/25 13:35 Oxygen Flow Rate 1 02/24/25 13:35 Pain Level 8 02/24/25 06:50 Allergies codeine Allergy (Intermediate, Verified 02/24/25 06:45) pass out Penicillins Allergy (Verified 02/24/25 06:45) Skin Rash marijuana (cannabis) Adverse Reaction (Severe, Verified 02/24/25 06:45) Paranoia After ingesting 2nd hand smoke from another person smoking, became paranoid and very anxious amoxicillin Adverse Reaction (Intermediate, Verified 02/24/25 06:45) Nausea dextromethorphan (From NyQuil) Adverse Reaction (Intermediate, Verified 02/24/25 06:45) got really hot and sweaty doxylamine (From NyQuil) Adverse Reaction (Intermediate, Verified 02/24/25 06:45) got really hot and sweaty pseudoephedrine (From NyQuil) Adverse Reaction (Intermediate, Verified 02/24/25 06:45) got really hot and sweaty Active Medications Generic Name Dose Route Start Last Admin Trade Name Rich PRN Reason Stop Dose Admin Acetaminophen 650 mg 02/24/25 10:47 02/24/25 11:36 Acetaminophen 325 Mg Tab PO 650 mg Q4H PRN PRN Administration Heparin Sodium/Sodium Chloride 25,000 unit in 250 mls @ 0 mls/hr 02/24/25 11:30 02/24/25 13:57 IVINF 1,800 mls/hr INFUSION LUIS ENRIQUE 1,800 mls/hr Protocol Administration Per Protocol Iohexol 500 ml 02/24/25 09:30 02/24/25 09:36 Omnipaque 350 Mg/Ml 500 Ml Btl-Imaging Package IJ 03/26/25 23:59 100 ml DIRECTED LUIS ENRIQUE Administration Sodium Chloride 0 ml 02/24/25 08:30 02/24/25 09:35 Normal Saline Flush 10 Ml Syr IVP 10 ml BID LUIS ENRIQUE Administration Sodium Chloride 50 ml 02/24/25 09:30 02/24/25 09:31 Normal Saline - Diluent 50 Ml Vial IJ 50 ml DIRECTED LUIS ENRIQUE Administration IV IV Catheter Type [Right Peripheral IV Forearm] IV Catheter Gauge [Right 18 Forearm] Diet Orders Category Date Time Status Regular/Normal [DIET] Nutrition 02/24/25 Lunch Active Diagnostics 02/24/25 02/24/25 02/24/25 Range/Units 20:00 13:21 10:17 WBC (4.4-10.8) 10^3/uL RBC (4.36-5.78) 10^6/uL Hgb (13.5-17.5) g/dL Hct (40.0-50.0) % MCV (80-95) fL MCH (27.0-33.0) pg MCHC (32.0-36.0) % RDW (11.8-14.1) % Plt Count (130-400) 10^3/uL MPV (8.0-11.0) fL Immature Gran % % Neutrophils % % Lymphocytes % % Monocytes % % Eosinophils % % Basophils % % Nucleated RBC % (0.0-0.3) % Absolute Neutrophils (1.2-6.7) 10^3/uL Absolute Lymphocytes (1.2-3.4) 10^3/uL Absolute Monocytes (0.1-0.8) 10^3/uL Absolute Eosinophils (0.0-0.7) 10^3/uL Absolute Basophils (0.0-0.2) 10^3/uL APTT Pending 29.2 (20.6-30.2) sec Sodium (136-145) mmol/L Potassium (3.5-5.1) mmol/L Chloride (98-107) mmol/L Carbon Dioxide (21.0-32.0) mmol/L Anion Gap (3-11) mmol/L BUN (7-18) mg/dL Creatinine (0.70-1.30) mg/dL Est GFR (CKD-EPI 2020) (mL/min/1.73m2) Glucose (74-106) mg/dL Calcium (8.5-10.1) mg/dL Magnesium (1.8-2.4) mg/dL Total Bilirubin (0.2-1.0) mg/dL AST (15-37) U/L ALT (16-63) U/L Alkaline Phosphatase (46-116) U/L Troponin I Cancelled (<or=76) ng/L NT-Pro-B Natriuret Pep (<300) pg/mL Total Protein (6.4-8.2) g/dL Albumin (3.4-5.0) g/dL COVID-19 Source SARS-CoV-2 (PCR) (Negative) Influenza Type A (PCR) (Negative) Influenza Type B (PCR) (Negative) RSV (PCR) (Negative) 02/24/25 02/24/25 02/24/25 Range/Units : 08:08 07:27 WBC 12.48 H (4.4-10.8) 10^3/uL RBC 3.85 L (4.36-5.78) 10^6/uL Hgb 10.1 L (13.5-17.5) g/dL Hct 32.7 L (40.0-50.0) % MCV 85 (80-95) fL MCH 26.2 L (27.0-33.0) pg MCHC 30.9 L (32.0-36.0) % RDW 17.1 H (11.8-14.1) % Plt Count 340 (130-400) 10^3/uL MPV 9.9 (8.0-11.0) fL Immature Gran % 0.4 % Neutrophils % 79.4 % Lymphocytes % 10.6 % Monocytes % 8.4 % Eosinophils % 1.0 % Basophils % 0.2 % Nucleated RBC % 0.0 (0.0-0.3) % Absolute Neutrophils 9.91 H (1.2-6.7) 10^3/uL Absolute Lymphocytes 1.32 (1.2-3.4) 10^3/uL Absolute Monocytes 1.05 H (0.1-0.8) 10^3/uL Absolute Eosinophils 0.12 (0.0-0.7) 10^3/uL Absolute Basophils 0.02 (0.0-0.2) 10^3/uL APTT (20.6-30.2) sec Sodium 137 (136-145) mmol/L Potassium 3.7 (3.5-5.1) mmol/L Chloride 99 (98-107) mmol/L Carbon Dioxide 32.7 H (21.0-32.0) mmol/L Anion Gap 5.3 (3-11) mmol/L BUN 10 (7-18) mg/dL Creatinine 2.1 H (0.70-1.30) mg/dL Est GFR (CKD-EPI 2020) 42.36 (mL/min/1.73m2) Glucose 128 H (74-106) mg/dL Calcium 10.8 H (8.5-10.1) mg/dL Magnesium 1.9 (1.8-2.4) mg/dL Total Bilirubin 0.5 (0.2-1.0) mg/dL AST 44 H (15-37) U/L ALT 55 (16-63) U/L Alkaline Phosphatase 184 H (46-116) U/L Troponin I 4 < 4 (<or=76) ng/L NT-Pro-B Natriuret Pep 55 (<300) pg/mL Total Protein 8.6 H (6.4-8.2) g/dL Albumin 3.4 (3.4-5.0) g/dL COVID-19 Source Nasopharynx SARS-CoV-2 (PCR) Negative (Negative) Influenza Type A (PCR) Negative (Negative) Influenza Type B (PCR) Negative (Negative) RSV (PCR) Negative (Negative) 02/24/25 13:21 Blood Culture - Pending Blood 02/24/25 13:21 Blood Culture - Pending Blood Intake and Output - 24 Hour Total 02/24/25 06:38 thru 02/24/25 09:38 Intake Total 260 Balance 260 Weight 136.078 kg Intake: IV 260 Falls Risk Assessment History of Falls No History 02/24/25 07:04 Contributing Factors No Factors 02/24/25 07:04 Ambulatory Aids Independent 02/24/25 07:04 Tubes/Lines W/no contributing factors 02/24/25 07:04 Gait Evaluation No gait disturbance 02/24/25 07:04 Cognition No cognitive impairment 02/24/25 07:04 Fall Total Score 10 02/24/25 07:04 Level of Risk Standard/Low Risk 02/24/25 07:04 v v v v v v v v v Sending and/or Receiving Nurses: Please use comment section below to note any information pertinent to the patient hand-off not included above. Information / Comments: aPTT drawn per Sydnee. Pt in 1L NC. Report received from: Sydnee RN @[id number]
[2025-02-24] MEDS: oxyCODONE 5 MG TAB PO (15:52)
[2025-02-24 20:28] LABS: PTT Activated 58.8 sec (20.6-30.2)
[2025-02-24] MEDS: Gabapentin 300 MG CAP PO (20:43)
[2025-02-25 02:05] VITALS: BP 142/94; PULSE 95; RESP 16; TEMP 36.8; O2SAT 98
[2025-02-25] MEDS: oxyCODONE 5 MG TAB PO (02:24)
[2025-02-25 02:35] LABS: PTT Activated 43.3 sec (20.6-30.2)
[2025-02-25 03:52] VITALS: BP 134/85; PULSE 105; RESP 18; TEMP 38.4; O2SAT 94
[2025-02-25] MEDS: Cyclobenzaprine 10 MG TAB PO (04:16)
[2025-02-25] MEDS: Acetaminophen 325 MG TAB 650 MG PO (04:16)
[2025-02-25 06:29] VITALS: TEMP 36.6
[2025-02-25 07:36] VITALS: BP 120/84; PULSE 105; RESP 17; TEMP 36.8; O2SAT 98
[2025-02-25] MEDS: Gabapentin 300 MG CAP PO (08:23)
[2025-02-25] MEDS: Methadone Liquid 10 MG/ML 105 MG PO (08:23)
[2025-02-25] MEDS: Omeprazole 20 MG CAPCR 40 MG PO (08:23)
[2025-02-25] MEDS: Normal Saline Flush 10 ML SYR IVP (08:24)
[2025-02-25 09:41] LABS: PTT Activated 55.3 sec (20.6-30.2)
--- NOTE | 2025-02-25 09:44 | PDOC.CMIN ---
Date of service: 02/25/25 Time of Service: 09:44 Care Management Initial Assmt Initial Assessment Reason for Hospitalization: bilateral pulmonary embolism Functional Status/Living Situation Patient Presentation: Pedro Pablo presented to the ED on February 23 with left chest wall and flank pain worsening since his ER visit on February 22 with diagnosis of multifocal PE. He reports that he took his pills (apixaban) as directed. He c/o pain with deep inspiration, and required O2 via facemask. He was found not only to still have the pulmonary embolisms, but an increased size of his left lower lobe infarct. He was admitted for IV Heparin therapy. Pedro Pablo was very pleasant with CM today. 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 Pedro Pablo had a PT consult, and was issued a cane, due to the pain in his back from the infarct. Pedro Pablo made great improvements over night, and was discharged home earlier this afternoon. 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) Instrumental Activities of Daily Living (ADLs): Independent Medications Medication Management: No Issues/Barriers identified Physical Functioning/Mobility Assistive Device: discharged home with a cane Advance Directives Advance Directives: Do you have an Advance Directive: N 12/03/12, 12:20 AD On File at [facility]: N 12/03/12, 12:20 Date Asked 02/24/25 Today, 10:20 AD Date Reviewed COLST On File at [facility] COLST Date Scanned Code Status Resuscitation Status Full Code Insurance Coverage/Financial Issues Insurance: [place] Care Team Visit Care Team Role Provider Type Unknown Unknown Primary Care Provider STAFF PHYSICIAN Tere Adams MD Emergency Provider [facility] STAFF PHYSICIAN Florentin Valentin MD Admit Provider [facility] STAFF PHYSICIAN Attending Provider Discharge Potential Discharge Needs: PCP F/U Appt (has PCP appointment on 03/09) Anticipated Barriers to Discharge: None Identified Patient/Family Education Needs: Review discharge instructions, discuss Ask Me Three Transportation: Private vehicle Plan: Pedro Pablo was discharged home this afternoon with no new services. He will f/u with his PCP at the [place] on 03/09, and continue per his plan of care. Pedro Pablo was discharged home on eliquis, which was covered in full by his [facility] insurance. He was driven home by his uncle. Social Determinants of Health Screening Social Determinants of health last assessed in clinic: 02/25/25 Will the Patient Participate in the Screening?: Yes Do you worry about having a steady place to live?: no Problems where you live: no known problems In the past 12 months, have you had to go without electric, gas, oil or water in your home?: no 1. Within the past 12 months, we worried whether our food would run out before we got money to buy more.: Don't know/refused 2. Within the past 12 months, the food we bought just didn't last and we didn't have money to get more.: Don't know/refused Has lack of transportation kept you from medical appointments or from doing things needed for daily living?: no Has anyone in your life made you feel unsafe or unsupported?: no How hard is it for you to pay for the very basics like food, housing, medical care, and heating? Would you say it is:: Not hard at all Do you want help finding or keeping work or a job?: I do not need or want help If for any reason you need help with day-to-day activities such as bathing, preparing meals, shopping, managing finances, etc., do you get the help you need?: I don?t need any help How often do you feel lonely or isolated from those around you?: Never Do you speak a language other than Amharic at home?: No Does the patient want assistance with any of the above?: No PFSH All Active Problems (Updated 02/24/25 @ 20:29 by Florentin Valentin MD) Pulmonary embolism and infarction (Acute) Left pulmonary infiltrate on CXR (Acute) Bilateral pulmonary embolism (Acute) Tenderness of neck (Acute) Right elbow pain (Acute) Acute leg pain (Acute) Bronchitis (Acute) Well adult health check (Acute) Obstructive sleep apnea (Chronic) Metabolic dysfunction-associated fatty liver disease (MAFLD) (Acute) Fatty liver (Acute) IBS (irritable bowel syndrome) (Chronic) Obesity (Chronic) Migraine with aura (Acute) Testicle lump (Acute) Pes anserine bursitis (Acute) Left-sided Flower's palsy (Acute) Opiate dependence, continuous (Acute) 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 Possible 2' Methadone, Clnzpm (?). Surg eval (+)/No further action. History of electrolyte imbalance (Acute) Neck pain on left side (Acute) with shoulder, upper back pain.. torticollis, radiating into left hip/leg Pulmonary nodule 1 cm or greater in diameter (Chronic) Therapeutic opioid induced constipation (Acute) Sphincter of Oddi dysfunction (Chronic) Abnormal CT scan, kidney (Acute) Intrahepatic bile duct dilation (Acute) Common bile duct dilatation (Chronic) Has been dilated for quite some time, now more-so. Normal LFTs. Known gallstones. Depression (Chronic) Elevated parathyroid hormone (Acute) Family history of coronary arteriosclerosis (Chronic) Father of CA at 50, mother had CA at 42 Severe anxiety with panic (Chronic) Medical History Multiple endocrine neoplasia type I CKD (chronic kidney disease) stage 2, GFR 60-89 ml/min GFR 64-65, with Hx FLORESITA and GFR < 45 Primary hyperparathyroidism Complex medical condition Serious electrolyte imbalances, with gynecomastia, possible MEN Dx, CKD and anemia with baseline anxiety and Hx PTSD. Hypocalcemia Anxiety Depression Hyperlipidemia Family history of multiple endocrine neoplasia, type 1 PTSD (post-traumatic stress disorder) Per pt. states no triggers at this time. Surgical History History of laparoscopic cholecystectomy (~11/2023) H/O parathyroidectomy Family History Mother Anxiety Asthma Depression Sister Anxiety Depression Father Cancer lung & stomach Depression Diabetes Hypertension MEN 1 (multiple endocrine neoplasia) Social History Smoking/Tobacco Use Status: Never Smoking risk assessment performed?: Yes Alcohol Intake: never Drug use: Current Sobriety Substance use type: former substance user, crack/cocaine, heroin and painkillers Details: stopped using substances for the past 4 years Adopted: No Caregiver/Support person: No Foster care: No Household members: none Housing: apartment Number of Children: 0 Communication Needs: None Education Level: high school Do you need help understanding health information?: Never 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 Pets and animals: Yes (Ally) Pets and animals: dog(s) Sexually active: No Do you think of yourself as: straight/heterosexual Current gender identity: male What is your relationship status?: How often do you talk on the phone with friends or family?: twice per week How often do you get together with friends or relatives?: never Do you belong to any clubs or organized social groups?: no Panel score (0-1 are the most socially isolated patients): 0 What type of physical activity do you participate in: walking Duration: 15-30 minutes/day Frequency: 5-6 times per week Maryam/Protestant: Hindu Special maryam needs: No Seatbelt use: always Helmet use: Yes Helmet use: always Drive intox or ride w/intox utility driver: No Do you feel safe at home: Yes Do you feel safe in your relationship?: Yes
[2025-02-25 11:23] VITALS: BP 138/82; PULSE 100; RESP 17; TEMP 36.4; O2SAT 97
--- NOTE | 2025-02-25 11:36 | PT.INIE ---
PT Notes Visit Reasons: Multifocal PE Inpatient Physical Therapy Evaluation Date: 02/25/25 Referring Doctor: Florentin Valentin PT Orders: PT CONSULT: Eval for AD, safety consult for d/c Precautions: n/a Patient Profile/Admitting Diagnosis: Multifocal PE PMHX: PTSD Social History/Home Situation: Pt lives with his uncle in a third floor apartment. He manages stairs everyday without issue. He was working at his garage the day before he came into the hospital. He has no functional limitations at baseline. He notes that he has noticed that he now is walking with a limp to offload his left side due to pain and requests a cane. Subjective: Pt states he is feeling better and hoping to go home today with a cane. Objective: General Observation: sitting up in a chair, well appearing, no acute distress Mental Status: A+Ox4 Pain: pain along left plank during walking and when performing a deep breath Vital Signs: spO2 97% on RA ROM: Full ROM throughout Strength: Right Upper Extremity: 5/5 grossly Left Upper Extremity: 5/5 grossly Right Lower Extremity: 5/5 grossly Left Lower Extremity: 5/5 grossly Bed Mobility/Transfers: sit to stand - independent stand to sit - independent Gait: ambulates 250 ft w/SPC and SBA - offloads left leg by leaning onto the right Balance: Static Sitting: good Dynamic Sitting: good Static Standing: good Dynamic Standing: good Special Tests: Mobility Limitations Standardized Measure [facility] AM-PAC 6 clicks Basic Mobility Inpatient Short Form: Raw Score: 24 CMS Score: 0% Informed Consent/Education: Patient instructed in purpose of PT consult and plan of care. Assessment: Pt is currently ambulating and functioning well. No longer requires any PT services. He did seem to do somewhat better ambulating with a SPC than without one as he does offload his LLE slightly due to pain when stepping on that side. He was provided with a SPC for home. He was able to perform stairs today without any issues. He can be d/c'd to home when medically cleared. Patient is assessed as a [x] Low 58872 complexity based on the following: History: Low Examination: Low Presentation: Low Decision Making: Low Goals: N/A Plan of Care/Treatment Plan: 1-2x/day, 7 days/week x 1 week. Plan of care has been reviewed with the DYE ROOM HELPER providing the service under Physical Therapy direction. Initiate Physical Therapy intervention for strengthening, bed mobility, transfers, gait, stairs, balance training, use of assistive device. DISCHARGE RECOMMENDATIONS: [x] Home with no services TREATMENT CODE/TIME: Segundo Lind ([id number]) x1 - 14 min
--- NOTE | 2025-02-25 13:07 | W.PM.DS.N ---
Date of service: 02/25/25 Time of Service: 13:00 DS: Diagnosis Discharge Diagnosis (1) Pulmonary embolism and infarction: Status: Acute Asessment and Plan: Multifocal PE diagnosed by CTA on February 22, discharged on apixaban Unlikely apixaban failure CTA on return showing possible enlargement of infarct area Heparin drip overnight Appreciate pulm consult Restarting apixaban Discussed return precautions Discharge Plan Disposition Patient Disposition: Home Condition: Improving Discharge Details Reason For Visit: Multifocal PE Admit Date/Time: 02/24/25 10:48 Admit Provider: Florentin Valentin Attending Provider: Florentin Valentin Primary Care Provider: Sanjana Pritchett [facility] Course Hospital Course: Pedro Pablo Cortes is a 29 year old man presenting February 23 with left chest wall and flank pain worsening since his February 22 diagnosis of multifocal PE. He reports that he took his pills (apixaban) as directed. He has pain with deep inspiration. He denies abdominal pain, N/V/D. He was admitted due to concern over increased size of left lower lobe infarction seen on CTA. He was evaluated by pulmonology and will have outpatient followup for hypercoagulation workup and oversight of anticoagulation. Home Meds and New Rx's Prescriptions: No Action gabapentin 300 mg capsule 300 mg PO BID Qty: 180 3RF omeprazole 40 mg capsule,delayed release(DR/EC) 40 mg PO DAILY Qty: 90 3RF lorazepam 1 mg tablet 1 mg PO DAILY PRN (Reason: anxiety) Qty: 10 0RF Rx Instructions: Use when considering ER visit cyclobenzaprine 10 mg tablet 10 mg PO TID PRN (Reason: muscle spasm) Qty: 30 3RF methadone 10 mg/5 mL solution 100 mg PO QAM calcitriol 0.5 mcg capsule 1 mcg PO .COMPLEX Qty: 270 3RF Rx Instructions: 1 mcg orally t2 tabs qam and 1 tab QHS; clonazepam 1 mg tablet 1 mg PO BID Qty: 10 0RF calcium carbonate [Tums] 200 mg calcium (500 mg) tablet,chewable 2,000 mg PO BID prochlorperazine maleate 5 mg tablet 5 mg PO TID PRN (Reason: acute nausea) Qty: 30 0RF polyethylene glycol 3350 17 gram powder in packet 17 g PO BID PRN magnesium gluconate 27 mg magnesium (500 mg) tablet 500 mg PO BID Rx Instructions: takes 500mg QAM and 1000mg QHS diclofenac sodium 1 % gel 2 g topical QID Qty: 50 0RF Rx Instructions: apply to single elbow, wrist or hand; for hand includes palm/fingers/back of hand Eliquis 5 mg tablet 5 mg PO BID Patient Comments: TAKE TWO TABLETS BY MOUTH TWICE A DAY FOR 7 DAYS oxycodone 10 mg tablet 10 mg PO Q6H PRNQty: 14 0RF Discharge Instructions Instructions: Taking oral medicines for blood clots Stand Alone Forms: Nursing Discharge Form Referrals: Manuel Vargas MD [ [facility] STAFF PHYSICIAN, Pulmonology] Referral Note: Office will call you for a follow-up appointment. Sanjana Pritchett [Primary Care Provider, Medicine] Referral Note: Please call your PCP office to set up a follow-up appointment. Activity:: Activity as Tolerated Equipment/Supplies:: No Equipment Needed Diet:: As Tolerated Discharge Orders Discharge Orders: Discharge Order (Routine); Ordered 02/25/25 Ordered By: Florentin Valentin Discharge Data Discharge Date/Time-TO BE ENTERED AT DEPARTURE: 02/25/25 14:01 DS: Summary Time Spent with Patient providing and/or coordinating discharge services: Less than 30 minutes Status at Discharge Functional status at discharge: independent ambulation Overall status at discharge: patient is back to baseline Mental Status: mental status grossly normal Speech and Movement: speech and movement normal Mood: congruent mood Affect: normal affect Quality:SDOH Health Related Social Needs: Health related social needs daily activities Exam Psych Mental Status: mental status grossly normal Speech and Movement: speech and movement normal Mood: congruent mood Affect: normal affect DS: Data Vitals/I&O Vitals and I&O: Vital Signs Temperature 36.4 C L 02/25/25 11:23 Temperature Source Temporal Artery Scan 02/25/25 11:23 Pulse 100 H 02/25/25 11:23 Pulse Rhythm Regular 02/24/25 16:13 Pulse 90 02/24/25 11:30 Respiratory Rate 17 02/25/25 11:23 Respiratory Effort Normal 02/24/25 16:13 Respiratory Depth Shallow 02/24/25 16:13 Respiratory Pattern Normal 02/24/25 16:13 Blood Pressure 138/82 02/25/25 11:23 Blood Pressure Mean 100 02/25/25 11:23 Pulse Oximetry 97 02/25/25 11:23 Oxygen Delivery Method Room Air 02/25/25 11:23 Oxygen Flow Rate 0 02/25/25 11:23 Pain Level 0 02/25/25 11:23 Intake & Output 02/24/25 02/25/25 02/25/25 23:59 11:59 23:59 Intake Total 329.4 / 589.4 208.925 / 208.925 Balance 329.4 / 589.4 208.925 / 208.925 Intake: IV 329.4 / 589.4 208.925 / 208.925 Other: Urine Color Yellow Yellow Urine Appearance Clear Clear Urine Odor Normal Normal Data Completed and Pending Labs on day of discharge: Labs from last 24 hours 02/25/25 02/25/25 02/24/25 09:09 02:05 20:05 APTT 55.3 H 43.3 H 58.8 H 02/24/25 13:21 APTT 29.2 02/24/25 13:21 Blood Blood Culture - Pending 02/24/25 13:21 Blood Blood Culture - Pending Preliminary micro results at discharge 02/24/25 13:21 Blood Blood Culture - Pending 02/24/25 13:21 Blood Blood Culture - Pending [facility] All Active Problems (Updated 03/03/25 @ 10:46 by Richy Eagle DO) Rash (Acute) Shortness of breath (Acute) Edema, peripheral (Acute) Anxiety (Chronic) Chest discomfort (Acute) Pulmonary embolism and infarction (Acute) Left pulmonary infiltrate on CXR (Acute) Bilateral pulmonary embolism (Acute) Tenderness of neck (Acute) Right elbow pain (Acute) Acute leg pain (Acute) Bronchitis (Acute) Well adult health check (Acute) Obstructive sleep apnea (Chronic) Metabolic dysfunction-associated fatty liver disease (MAFLD) (Acute) Fatty liver (Acute) IBS (irritable bowel syndrome) (Chronic) Obesity (Chronic) Migraine with aura (Acute) Testicle lump (Acute) Pes anserine bursitis (Acute) Left-sided Flower's palsy (Acute) Opiate dependence, continuous (Acute) 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 Possible 2' Methadone, Clnzpm (?). Surg eval (+)/No further action. History of electrolyte imbalance (Acute) Neck pain on left side (Acute) with shoulder, upper back pain.. torticollis, radiating into left hip/leg Pulmonary nodule 1 cm or greater in diameter (Chronic) Therapeutic opioid induced constipation (Acute) Sphincter of Oddi dysfunction (Chronic) Abnormal CT scan, kidney (Acute) Intrahepatic bile duct dilation (Acute) Common bile duct dilatation (Chronic) Has been dilated for quite some time, now more-so. Normal LFTs. Known gallstones. Depression (Chronic) Elevated parathyroid hormone (Acute) Family history of coronary arteriosclerosis (Chronic) Father of MN at 50, mother had MN at 42 Severe anxiety with panic (Chronic) Medical History Multiple endocrine neoplasia type I CKD (chronic kidney disease) stage 2, GFR 60-89 ml/min GFR 64-65, with Hx FLORESITA and GFR < 45 Primary hyperparathyroidism Complex medical condition Serious electrolyte imbalances, with gynecomastia, possible MEN Dx, CKD and anemia with baseline anxiety and Hx PTSD. Hypocalcemia Anxiety Depression Hyperlipidemia Family history of multiple endocrine neoplasia, type 1 PTSD (post-traumatic stress disorder) Per pt. states no triggers at this time. Surgical History History of laparoscopic cholecystectomy (~11/2023) H/O parathyroidectomy Family History Mother Anxiety Asthma Depression Sister Anxiety Depression Father Cancer lung & stomach Depression Diabetes Hypertension MEN 1 (multiple endocrine neoplasia) Social History Smoking/Tobacco Use Status: Never Smoking risk assessment performed?: Yes Alcohol Intake: never Drug use: Current Sobriety Substance use type: former substance user, crack/cocaine, heroin and painkillers Details: stopped using substances for the past 4 years Adopted: No Caregiver/Support person: No Foster care: No Household members: none Housing: apartment Number of Children: 0 Communication Needs: None Education Level: high school Do you need help understanding health information?: Never 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 Pets and animals: Yes (Ally) Pets and animals: dog(s) Sexually active: No Do you think of yourself as: straight/heterosexual Current gender identity: male What is your relationship status?: How often do you talk on the phone with friends or family?: twice per week How often do you get together with friends or relatives?: never Do you belong to any clubs or organized social groups?: no Panel score (0-1 are the most socially isolated patients): 0 What type of physical activity do you participate in: walking Duration: 15-30 minutes/day Frequency: 5-6 times per week Maryam/Christianity: Scientology Special maryam needs: No Seatbelt use: always Helmet use: Yes Helmet use: always Drive intox or ride w/intox route sales 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 Time Spent with Patient Time Spent with Patient: <45 minutes Time was spent: preparing to see the patient(eg.review tests), obtaining and/or reviewing separately otained hiistory, ordering medications,tests, procedures, referring, communicating with other health account executive healthcare, indepentently interpreting results, counseling the patient and care coordination
== END 2025-02-25 14:01 | disposition home or self-care (01) | DRG 176 ==
LOC: ER 13:14 → MS 13:32
PROVIDERS: Family Medicine; Admitting Provider Family Medicine; Emergency Provider Emergency Medicine; PCP Physician Assistant; Responsible Provider Family Medicine; Visit Provider Family Medicine
DX: I26.99 Other pulmonary embolism without acute cor pulmonale (principal); F11.20 Opioid dependence, uncomplicated; Z68.41 Body mass index [BMI] 40.0-44.9, adult; G47.33 Obstructive sleep apnea (adult) (pediatric); K75.81 Nonalcoholic steatohepatitis (NASH); K58.9 Irritable bowel syndrome, unspecified; E66.9 Obesity, unspecified; G51.0 Bell's palsy; G43.109 Migraine with aura, not intractable, without status migrainosus; F41.0 Panic disorder [episodic paroxysmal anxiety]; F32.A Depression, unspecified; Z82.49 Family history of ischemic heart disease and other diseases of the circulatory system; K80.20 Calculus of gallbladder without cholecystitis without obstruction; N18.2 Chronic kidney disease, stage 2 (mild); E21.0 Primary hyperparathyroidism; E78.5 Hyperlipidemia, unspecified; E31.21 Multiple endocrine neoplasia [MEN] type I; F43.10 Post-traumatic stress disorder, unspecified; D64.9 Anemia, unspecified; Z79.899 Other long term (current) drug therapy; Z79.01 Long term (current) use of anticoagulants
CPT/HCPCS: 00123; 36415; 71275; 80053; 87040; 87637; 93005; 93308; 96365; 96375; 97161; 99285; 71046; 83735; 83880; 84484; 85025; 85730; 93010; 99222; 99238; J0456; J1644; J1885

== ENCOUNTER 2025-02-26 10:03 | Emergency (ER) | payer OTHER, SELFPAY ==
--- NOTE | 2025-02-26 10:00 | RT.EKG_ITS ---
APPROVED REPORT Exam: Resting ECG Reason for Exam: chest pain Patient Location: E HR:106 bpm ECG Measurements Heart Rate 106 AXIS SC 180 P 50 QRSd 98 QRS 30 QT 365 T 38 QTc 484 Conclusion Sinus tachycardia...rate> 99
[2025-02-26 10:07] VITALS: BP 138/76; PULSE 114; RESP 20; O2SAT 97
--- NOTE | 2025-02-26 10:42 | W.ED.GENAD ---
Discharge Plan Disposition Patient Disposition: Home Condition: Stable Discharge Details Clinical Impression: Chest discomfort, Anxiety Primary Care Provider: Sanjana Pritchett ED Provider: Lester Bundy Home Meds and New Rx's Prescriptions: Continued gabapentin 300 mg capsule 300 mg PO BID Qty: 180 3RF omeprazole 40 mg capsule,delayed release(DR/EC) 40 mg PO DAILY Qty: 90 3RF lorazepam 1 mg tablet 1 mg PO DAILY PRN (Reason: anxiety) Qty: 10 0RF Rx Instructions: Use when considering ER visit cyclobenzaprine 10 mg tablet 10 mg PO TID PRN (Reason: muscle spasm) Qty: 30 3RF methadone 10 mg/5 mL solution 100 mg PO QAM calcitriol 0.5 mcg capsule 1 mcg PO .COMPLEX Qty: 270 3RF Rx Instructions: 1 mcg orally t2 tabs qam and 1 tab QHS; clonazepam 1 mg tablet 1 mg PO BID Qty: 10 0RF calcium carbonate [Tums] 200 mg calcium (500 mg) tablet,chewable 2,000 mg PO BID prochlorperazine maleate 5 mg tablet 5 mg PO TID PRN (Reason: acute nausea) Qty: 30 0RF polyethylene glycol 3350 17 gram powder in packet 17 g PO BID PRN magnesium gluconate 27 mg magnesium (500 mg) tablet 500 mg PO BID Rx Instructions: takes 500mg QAM and 1000mg QHS diclofenac sodium 1 % gel 2 g topical QID Qty: 50 0RF Rx Instructions: apply to single elbow, wrist or hand; for hand includes palm/fingers/back of hand oxycodone 10 mg tablet 10 mg PO Q6H PRNQty: 14 0RF Discontinued apixaban 5 mg tablet 5 mg PO BID Qty: 120 0RF No Action Eliquis 5 mg tablet 5 mg PO BID Patient Comments: TAKE TWO TABLETS BY MOUTH TWICE A DAY FOR 7 DAYS Discharge Instructions Instructions: Anxiety, Adult ED Additional Instructions: Please continue to take your apixaban as prescribed. Please follow-up with pulmonology next week. Please follow-up with your primary care physician. Return to the emergency department immediately for any worsening or new concerning symptoms. Referrals: Manuel Vargas MD [ [facility] STAFF PHYSICIAN, Pulmonology] Sanjana Pritchett [Primary Care Provider, Medicine] Discharge Data Discharge Date/Time-TO BE ENTERED AT DEPARTURE: 02/26/25 11:03 HPI General Mode of arrival: ambulatory. Date/Time Provider Initiated Documentation: 02/26/25 10:05. Limitations to Documentation: no limitations. Information obtained by: patient. HPI Narrative: HISTORY OF PRESENT ILLNESS 29-year-old male with multiple endocrine neoplasia type 1, CKD stage 2, hyperlipidemia, hypocalcemia, primary hyperparathyroidism, and anxiety presenting with left chest pain. Recently admitted for bilateral pulmonary emboli and small left pleural effusion with pleural-based infiltrate in the left lower lobe, suspected pulmonary infarct. Patient returns this morning reporting left-sided pain intermittent, expereinced upon waking this morning, exacerbated by movement, improved with rest. Patient attributing symptoms to anxiety. He is concerned about anxiety levels and feeling scared. Questions about activity vs. rest during the day. Sleeps in a recliner due to previous breathing issues. Patient is taking Eliquis twice daily. Took clonazepam for anxiety an hour before visit. Feeling better now. No chest pain currently. No SOB. Related Data Home Medications ?Medication ?Instructions ?Recorded ?Confirmed calcium carbonate (Tums) 2,000 mg PO BID 02/02/23 03/03/25 methadone 10 mg/5 mL oral solution 100 mg PO QAM 06/12/23 03/03/25 prochlorperazine maleate 5 mg 5 mg PO TID PRN acute nausea #30 09/06/23 03/03/25 tablet tabs gabapentin 300 mg capsule 300 mg PO BID #180 caps 06/01/24 03/03/25 calcitriol 0.5 mcg capsule 1 mcg (2 x 0.5 mcg) PO .COMPLEX 06/29/24 03/03/25 #270 caps omeprazole 40 mg capsule,delayed 40 mg PO DAILY #90 caps 07/27/24 03/03/25 release polyethylene glycol 3350 17 gram 17 g PO BID PRN 10/15/24 03/03/25 oral powder packet lorazepam 1 mg tablet 1 mg PO DAILY PRN anxiety #10 tabs 10/19/24 03/03/25 cyclobenzaprine 10 mg tablet 10 mg PO TID PRN muscle spasm #30 11/16/24 03/03/25 tabs magnesium gluconate 27 mg 500 mg PO BID 01/30/25 03/03/25 magnesium (500 mg) tablet diclofenac sodium 1 % topical gel 2 g topical QID #50 grams 02/03/25 03/03/25 clonazepam 1 mg tablet 1 mg PO BID #10 tabs 02/08/25 03/03/25 oxycodone 10 mg tablet 10 mg PO Q6H PRN #14 tabs 02/23/25 03/03/25 apixaban 5 mg tablet (Eliquis) 5 mg PO BID 03/03/25 03/03/25 Previous Rx's ?Medication ?Instructions ?Recorded prochlorperazine maleate 5 mg 5 mg PO TID PRN acute nausea #30 09/06/23 tablet tabs gabapentin 300 mg capsule 300 mg PO BID #180 caps 06/01/24 calcitriol 0.5 mcg capsule 1 mcg (2 x 0.5 mcg) PO .COMPLEX 06/29/24 #270 caps omeprazole 40 mg capsule,delayed 40 mg PO DAILY #90 caps 07/27/24 release lorazepam 1 mg tablet 1 mg PO DAILY PRN anxiety #10 tabs 10/19/24 cyclobenzaprine 10 mg tablet 10 mg PO TID PRN muscle spasm #30 11/16/24 tabs diclofenac sodium 1 % topical gel 2 g topical QID #50 grams 02/03/25 clonazepam 1 mg tablet 1 mg PO BID #10 tabs 02/08/25 oxycodone 10 mg tablet 10 mg PO Q6H PRN #14 tabs 02/23/25 Allergies Allergy/AdvReac Type Severity Reaction Status Date / Time codeine Allergy Intermediate pass out Verified 03/03/25 15:21 Penicillins Allergy Skin Rash Verified 03/03/25 15:21 marijuana (cannabis) AdvReac Severe Paranoia Verified 03/03/25 15:21 amoxicillin AdvReac Intermediate Nausea Verified 03/03/25 15:21 dextromethorphan (From AdvReac Intermediate got Verified 03/03/25 15:21 NyQuil) really hot and sweaty doxylamine (From NyQuil) AdvReac Intermediate got Verified 03/03/25 15:21 really hot and sweaty pseudoephedrine (From NyQuil) AdvReac Intermediate got Verified 03/03/25 15:21 really hot and sweaty General Stated Complaint: Chest/Rib ADRIANA: 2 Review of Systems All systems reviewed & are unremarkable except as noted in HPI and below Exam Const General: cooperative and no acute distress HENMT Head: normocephalic and atraumatic Mouth: moist mucous membranes Eyes Conjunctivae: normal conjunctivae Sclera: normal sclerae EOM: EOM intact bilaterally Neck Neck: trachea midline and supple Resp Auscultation: clear to auscultation bilaterally, no rales, no rhonchi and no wheezes Cardio Jugular venous pressure: no JVD Rate: regular rate and not tachycardic Rhythm: regular rhythm GI Palpation: soft, not firm, no guarding, no masses, not rigid and nontender Skin General skin exam: no rashes or lesions noted Neuro General: patient alert, patient awake, patient oriented x3 and tone normal Extrem General: no edema Psych Appearance: grossly normal Mental Status: mental status grossly normal Speech and Movement: speech and movement normal Course Vital Signs Vital signs: Vital Signs Pulse 114 H 02/26/25 10:07 Respiratory Rate 20 02/26/25 10:07 Blood Pressure 138/76 02/26/25 10:07 Pulse Oximetry 97 02/26/25 10:07 Pulse 114 H 02/26/25 10:07 Respiratory Rate 20 02/26/25 10:07 Respiratory Effort Non-Labored 02/26/25 10:21 Respiratory Depth Shallow 02/26/25 10:21 Respiratory Pattern Normal 02/26/25 10:21 Blood Pressure 138/76 02/26/25 10:07 Blood Pressure Position Supine 02/26/25 10:07 Pulse Oximetry 97 02/26/25 10:07 Oxygen Delivery Method Room Air 02/26/25 10:07 Oxygen Flow Rate 0 02/26/25 10:07 Pain Level 3 02/26/25 10:21 Medical Decision Making ASSESSMENT AND PLAN 29-year-old male with multiple endocrine neoplasia type I, CKD stage II, hyperlipidemia, hypocalcemia, primary hyperparathyroidism, anxiety, extensive bilateral pulmonary emboli, small left pleural effusion with pleural-based infiltrate, left lower lobe suspected pulmonary infarct, returns with left chest pain. Differential Diagnosis: - Pulmonary infarct: History of extensive bilateral pulmonary emboli, small left pleural effusion, pleural-based infiltrate, left lower lobe. Continue Eliquis, follow-up with pulmonology. - Anxiety: Baseline anxiety may exacerbate symptoms. Took clonazepam before visit. Continue managing anxiety, follow-up with pulmonology. ED Course: EKG: Sinus tachycardia, 106 bpm. Vitals: Normotensive, HR 114 bpm. Normal respiratory rate, pulse ox, and BP. Continue Eliquis twice daily. Engage in light activities without overexerting. Reassured about sleeping in a recliner. Clinical Impression: - Pulmonary infarct - Anxiety Disposition: Discharge: Home. Stable, outpatient follow-up. 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 Patient Education: Reassured about normal vitals, importance of continuing Eliquis, engaging in light activities, and sleeping in a recliner. This document was written with the assistance of FATMATA Espino. The patient consented to its use. Quality:SDOH Health Related Social Needs: Health related social needs daily activities PFSH All Active Problems (Updated 03/03/25 @ 16:16 by Richy Eagle DO) Left ankle sprain (Acute) Rash (Acute) Shortness of breath (Acute) Edema, peripheral (Acute) Anxiety (Chronic) Chest discomfort (Acute) Pulmonary embolism and infarction (Acute) Left pulmonary infiltrate on CXR (Acute) Bilateral pulmonary embolism (Acute) Tenderness of neck (Acute) Right elbow pain (Acute) Acute leg pain (Acute) Bronchitis (Acute) Well adult health check (Acute) Obstructive sleep apnea (Chronic) Metabolic dysfunction-associated fatty liver disease (MAFLD) (Acute) Fatty liver (Acute) IBS (irritable bowel syndrome) (Chronic) Obesity (Chronic) Migraine with aura (Acute) Testicle lump (Acute) Pes anserine bursitis (Acute) Left-sided Flower's palsy (Acute) Opiate dependence, continuous (Acute) 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 Possible 2' Methadone, Clnzpm (?). Surg eval (+)/No further action. History of electrolyte imbalance (Acute) Neck pain on left side (Acute) with shoulder, upper back pain.. torticollis, radiating into left hip/leg Pulmonary nodule 1 cm or greater in diameter (Chronic) Therapeutic opioid induced constipation (Acute) Sphincter of Oddi dysfunction (Chronic) Abnormal CT scan, kidney (Acute) Intrahepatic bile duct dilation (Acute) Common bile duct dilatation (Chronic) Has been dilated for quite some time, now more-so. Normal LFTs. Known gallstones. Depression (Chronic) Elevated parathyroid hormone (Acute) Family history of coronary arteriosclerosis (Chronic) Father of PR at 50, mother had PR at 42 Severe anxiety with panic (Chronic) Medical History Multiple endocrine neoplasia type I CKD (chronic kidney disease) stage 2, GFR 60-89 ml/min GFR 64-65, with Hx FLORESITA and GFR < 45 Primary hyperparathyroidism Complex medical condition Serious electrolyte imbalances, with gynecomastia, possible MEN Dx, CKD and anemia with baseline anxiety and Hx PTSD. Hypocalcemia Anxiety Depression Hyperlipidemia Family history of multiple endocrine neoplasia, type 1 PTSD (post-traumatic stress disorder) Per pt. states no triggers at this time. Surgical History History of laparoscopic cholecystectomy (~11/2023) H/O parathyroidectomy Family History Mother Anxiety Asthma Depression Sister Anxiety Depression Father Cancer lung & stomach Depression Diabetes Hypertension MEN 1 (multiple endocrine neoplasia) Social History Smoking/Tobacco Use Status: Never Smoking risk assessment performed?: Yes Alcohol Intake: never Drug use: Current Sobriety Substance use type: former substance user, crack/cocaine, heroin and painkillers Details: stopped using substances for the past 4 years Adopted: No Caregiver/Support person: No Foster care: No Household members: none Housing: apartment Number of Children: 0 Communication Needs: None Education Level: high school Do you need help understanding health information?: Never current occupation: [employer] Pets and animals: Yes (Ally) Pets and animals: dog(s) Sexually active: No Do you think of yourself as: straight/heterosexual Current gender identity: male What is your relationship status?: How often do you talk on the phone with friends or family?: twice per week How often do you get together with friends or relatives?: never Do you belong to any clubs or organized social groups?: no Panel score (0-1 are the most socially isolated patients): 0 What type of physical activity do you participate in: walking Duration: 15-30 minutes/day Frequency: 5-6 times per week Maryam/Jew: Taoist Special maryam needs: No Seatbelt use: always Helmet use: Yes Helmet use: always Drive intox or ride w/intox road driver: No Do you feel safe at home: Yes Do you feel safe in your relationship?: Yes
[2025-02-26 11:02] VITALS: BP 127/65; PULSE 95; RESP 20; O2SAT 97
== END 2025-02-26 11:03 | disposition home or self-care (01) ==
PROVIDERS: Emergency Provider Student in an Organized Health Care Education/Training Program; PCP Physician Assistant
DX: R07.89 Other chest pain (principal); F41.9 Anxiety disorder, unspecified; N18.2 Chronic kidney disease, stage 2 (mild); E78.5 Hyperlipidemia, unspecified; E31.21 Multiple endocrine neoplasia [MEN] type I; Z86.711 Personal history of pulmonary embolism; Z79.01 Long term (current) use of anticoagulants; Z82.49 Family history of ischemic heart disease and other diseases of the circulatory system
CPT/HCPCS: 93005; 99283; 93010

== ENCOUNTER 2025-02-27 11:37 | Emergency (ER) | payer OTHER, SELFPAY ==
[2025-02-27 11:46] VITALS: BP 119/80; PULSE 92; RESP 20; TEMP 36.7; O2SAT 97
[2025-02-27 11:52] VITALS: BP 119/80; PULSE 92; RESP 20; TEMP 36.7; O2SAT 97
--- NOTE | 2025-02-27 13:14 | W.ED.GENAD ---
Discharge Plan Disposition Patient Disposition: Home Condition: Stable Discharge Details Clinical Impression: Bilateral pulmonary embolism, Anxiety Primary Care Provider: Sanjana Pritchett ED Provider: Tere Adams Home Meds and New Rx's Prescriptions: No Action gabapentin 300 mg capsule 300 mg PO BID Qty: 180 3RF omeprazole 40 mg capsule,delayed release(DR/EC) 40 mg PO DAILY Qty: 90 3RF lorazepam 1 mg tablet 1 mg PO DAILY PRN (Reason: anxiety) Qty: 10 0RF Rx Instructions: Use when considering ER visit cyclobenzaprine 10 mg tablet 10 mg PO TID PRN (Reason: muscle spasm) Qty: 30 3RF methadone 10 mg/5 mL solution 100 mg PO QAM calcitriol 0.5 mcg capsule 1 mcg PO .COMPLEX Qty: 270 3RF Rx Instructions: 1 mcg orally t2 tabs qam and 1 tab QHS; clonazepam 1 mg tablet 1 mg PO BID Qty: 10 0RF calcium carbonate [Tums] 200 mg calcium (500 mg) tablet,chewable 2,000 mg PO BID prochlorperazine maleate 5 mg tablet 5 mg PO TID PRN (Reason: acute nausea) Qty: 30 0RF polyethylene glycol 3350 17 gram powder in packet 17 g PO BID PRN magnesium gluconate 27 mg magnesium (500 mg) tablet 500 mg PO BID Rx Instructions: takes 500mg QAM and 1000mg QHS diclofenac sodium 1 % gel 2 g topical QID Qty: 50 0RF Rx Instructions: apply to single elbow, wrist or hand; for hand includes palm/fingers/back of hand apixaban 5 mg tablet 10 mg PO BID 7 Days Qty: 28 0RF oxycodone 10 mg tablet 10 mg PO Q6H PRNQty: 14 0RF Discharge Instructions Instructions: Pulmonary Embolism (Blood Clot in the Lungs) (DC) Additional Instructions: You were seen in the emergency department today for reevaluation after your recent blood clot. In our department you had a full physical examination performed and had an ultrasound that showed that your heart is functioning in a reassuring way. It is safe for you to go home and continue all of your medications, please be sure that you do not miss any doses of your apixaban. You can continue to use your anxiety medications, and have follow-up visits with your providers coming up next week. Please follow-up with your primary care provider in the next few days to discuss this visit and any symptoms that change, worsen, or persist. Thank you for allowing us to be part of your care. HPI General Mode of arrival: ambulatory. Date/Time Provider Initiated Documentation: 02/27/25 11:59. Limitations to Documentation: no limitations. Information obtained by: patient and old records reviewed. HPI Narrative: This is a 29-year-old male patient with a history of MEN, JOSE JUAN, fatty liver disease, and a recent diagnosis of bilateral pulmonary embolism with left-sided pulmonary infarct, now on apixaban. He is presenting for evaluation after this event, stating that he is concerned about his heart. The patient states that he is having severe anxiety, has a history of medical anxiety and feels like this recent diagnosis has worsened it. He states that he has always been tachycardic, but noticed today that his heart rate was in the 80s to 90s and wanted to be sure that his heart had not become damaged. He states that he has been able to exert himself gently, going for walks, and has not noticed any desaturation on his home pulse ox. He does have to take frequent breaks breaks when he gets winded. He has not missed any doses of his apixaban. He reports that he took his clonazepam this morning. He states that since arriving at the hospital he does feel improved in terms of his anxiety. Related Data Home Medications ?Medication ?Instructions ?Recorded ?Confirmed calcium carbonate (Tums) 2,000 mg PO BID 02/02/23 02/27/25 methadone 10 mg/5 mL oral solution 100 mg PO QAM 06/12/23 02/27/25 prochlorperazine maleate 5 mg 5 mg PO TID PRN acute nausea #30 09/06/23 02/27/25 tablet tabs gabapentin 300 mg capsule 300 mg PO BID #180 caps 06/01/24 02/27/25 calcitriol 0.5 mcg capsule 1 mcg (2 x 0.5 mcg) PO .COMPLEX 06/29/24 02/27/25 #270 caps omeprazole 40 mg capsule,delayed 40 mg PO DAILY #90 caps 07/27/24 02/27/25 release polyethylene glycol 3350 17 gram 17 g PO BID PRN 10/15/24 02/27/25 oral powder packet lorazepam 1 mg tablet 1 mg PO DAILY PRN anxiety #10 tabs 10/19/24 02/27/25 cyclobenzaprine 10 mg tablet 10 mg PO TID PRN muscle spasm #30 11/16/24 02/27/25 tabs magnesium gluconate 27 mg 500 mg PO BID 01/30/25 02/27/25 magnesium (500 mg) tablet diclofenac sodium 1 % topical gel 2 g topical QID #50 grams 02/03/25 02/27/25 clonazepam 1 mg tablet 1 mg PO BID #10 tabs 02/08/25 02/27/25 apixaban 5 mg tablet 10 mg (2 x 5 mg) PO BID 7 days #28 02/23/25 02/27/25 tabs oxycodone 10 mg tablet 10 mg PO Q6H PRN #14 tabs 02/23/25 02/27/25 Previous Rx's ?Medication ?Instructions ?Recorded prochlorperazine maleate 5 mg 5 mg PO TID PRN acute nausea #30 09/06/23 tablet tabs gabapentin 300 mg capsule 300 mg PO BID #180 caps 06/01/24 calcitriol 0.5 mcg capsule 1 mcg (2 x 0.5 mcg) PO .COMPLEX 06/29/24 #270 caps omeprazole 40 mg capsule,delayed 40 mg PO DAILY #90 caps 07/27/24 release lorazepam 1 mg tablet 1 mg PO DAILY PRN anxiety #10 tabs 10/19/24 cyclobenzaprine 10 mg tablet 10 mg PO TID PRN muscle spasm #30 11/16/24 tabs diclofenac sodium 1 % topical gel 2 g topical QID #50 grams 02/03/25 clonazepam 1 mg tablet 1 mg PO BID #10 tabs 02/08/25 apixaban 5 mg tablet 10 mg (2 x 5 mg) PO BID 7 days #28 02/23/25 tabs oxycodone 10 mg tablet 10 mg PO Q6H PRN #14 tabs 02/23/25 Allergies Allergy/AdvReac Type Severity Reaction Status Date / Time codeine Allergy Intermediate pass out Verified 02/27/25 11:53 Penicillins Allergy Skin Rash Verified 02/27/25 11:53 marijuana (cannabis) AdvReac Severe Paranoia Verified 02/27/25 11:53 amoxicillin AdvReac Intermediate Nausea Verified 02/27/25 11:53 dextromethorphan (From AdvReac Intermediate got Verified 02/27/25 11:53 NyQuil) really hot and sweaty doxylamine (From NyQuil) AdvReac Intermediate got Verified 02/27/25 11:53 really hot and sweaty pseudoephedrine (From NyQuil) AdvReac Intermediate got Verified 02/27/25 11:53 really hot and sweaty General Stated Complaint: SOB ADRIANA: 3 Exam Narrative Exam Narrative: Gen: Awake and alert, in no apparent distress HEENT: Non-icteric sclera Neck: Supple Lungs: No apparent respiratory distress, normal respiratory effort. Lung sounds clear and equal bilaterally without wheezes, rhonchi, rales CV: Appears well perfused, heart with regular rate and rhythm, strong distal pulses Abdomen: Non-distended MSK: Moves 4 extremities without apparent limitation in ROM. No peripheral edema Skin: Visualized skin without rashes, cyanosis. Neuro: Normal Gait, no obvious focal deficits or facial asymmetry. Speaks in full, clear sentences. Psych: Appropriate for situation. Course Vital Signs Vital signs: Vital Signs Temperature 36.7 C 02/27/25 11:46 Pulse 92 H 02/27/25 11:46 Respiratory Rate 20 02/27/25 11:46 Blood Pressure 119/80 02/27/25 11:46 Pulse Oximetry 97 02/27/25 11:46 Temperature 36.7 C 02/27/25 11:52 Temperature Source Oral 02/27/25 11:52 Pulse 92 H 02/27/25 11:52 Respiratory Rate 20 02/27/25 11:52 Blood Pressure 119/80 02/27/25 11:52 Blood Pressure Position Sitting 02/27/25 11:46 Pulse Oximetry 97 02/27/25 11:52 Oxygen Delivery Method Room Air 02/27/25 11:52 Oxygen Flow Rate 0 02/27/25 11:46 Pain Level 0 02/27/25 11:52 Medical Decision Making This is a 29-year-old male patient presenting for evaluation of anxiety and change in heart rate from baseline in the setting of a recent diagnosis of bilateral pulmonary embolisms. Differential includes but is not limited to anxiety, certainly considered extension of the PE and infarction, though the patient has not missed any doses of his anticoagulant, and has quite reassuring vital signs. Considered that the effective treatment of the pulmonary embolisms may be the reason for his heart rate normalizing and that this could in fact be a reassuring sign. No chest pain at this time and the patient is without significant risk factors for ACS, pericarditis or myocarditis. No evidence of wheezing to suggest reactive airway disease exacerbation, no fever, cough or sputum production to suggest pneumonia or bronchitis. I had an extended shared decision-making conversation with the patient, and at this time his symptoms are at his baseline or even slightly improved, his vitals are quite reassuring, and I do not think that there is significant diagnostic benefit in repeating laboratory or imaging studies. I did perform a bedside ultrasound of the heart, and do not note any evidence of reduced ejection fraction, right heart strain or effusion. The patient reports that this was sufficient to reduce his anxiety, and he feels comfortable returning home, continuing to take his medications, and following up with his primary care provider and heat treat puller at his scheduled visits next week. At this time, the patient has had a full medical evaluation and is safe for discharge to home. They are hemodynamically stable, ambulatory, and tolerating PO. They are understanding of the follow-up plan and return precautions. They left our facility without incident. Tere Adams MD Quality:SDOH Health Related Social Needs: Health related social needs daily activities PFSH All Active Problems (Updated 02/27/25 @ 13:15 by Tere Adams MD) Anxiety (Chronic) Chest discomfort (Acute) Pulmonary embolism and infarction (Acute) Left pulmonary infiltrate on CXR (Acute) Bilateral pulmonary embolism (Acute) Tenderness of neck (Acute) Right elbow pain (Acute) Acute leg pain (Acute) Bronchitis (Acute) Well adult health check (Acute) Obstructive sleep apnea (Chronic) Metabolic dysfunction-associated fatty liver disease (MAFLD) (Acute) Fatty liver (Acute) IBS (irritable bowel syndrome) (Chronic) Obesity (Chronic) Migraine with aura (Acute) Testicle lump (Acute) Pes anserine bursitis (Acute) Left-sided Flower's palsy (Acute) Opiate dependence, continuous (Acute) 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 Possible 2' Methadone, Clnzpm (?). Surg eval (+)/No further action. History of electrolyte imbalance (Acute) Neck pain on left side (Acute) with shoulder, upper back pain.. torticollis, radiating into left hip/leg Pulmonary nodule 1 cm or greater in diameter (Chronic) Therapeutic opioid induced constipation (Acute) Sphincter of Oddi dysfunction (Chronic) Abnormal CT scan, kidney (Acute) Intrahepatic bile duct dilation (Acute) Common bile duct dilatation (Chronic) Has been dilated for quite some time, now more-so. Normal LFTs. Known gallstones. Depression (Chronic) Elevated parathyroid hormone (Acute) Family history of coronary arteriosclerosis (Chronic) Father of CA at 50, mother had CA at 42 Severe anxiety with panic (Chronic) Medical History Multiple endocrine neoplasia type I CKD (chronic kidney disease) stage 2, GFR 60-89 ml/min GFR 64-65, with Hx FLORESITA and GFR < 45 Primary hyperparathyroidism Complex medical condition Serious electrolyte imbalances, with gynecomastia, possible MEN Dx, CKD and anemia with baseline anxiety and Hx PTSD. Hypocalcemia Anxiety Depression Hyperlipidemia Family history of multiple endocrine neoplasia, type 1 PTSD (post-traumatic stress disorder) Per pt. states no triggers at this time. Surgical History History of laparoscopic cholecystectomy (~11/2023) H/O parathyroidectomy Family History Mother Anxiety Asthma Depression Sister Anxiety Depression Father Cancer lung & stomach Depression Diabetes Hypertension MEN 1 (multiple endocrine neoplasia) Social History Smoking/Tobacco Use Status: Never Smoking risk assessment performed?: Yes Alcohol Intake: never Drug use: Current Sobriety Substance use type: former substance user, crack/cocaine, heroin and painkillers Details: stopped using substances for the past 4 years Adopted: No Caregiver/Support person: No Foster care: No Household members: none Housing: apartment Number of Children: 0 Communication Needs: None Education Level: high school Do you need help understanding health information?: Never 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[employer] Pets and animals: Yes (Ally) Pets and animals: dog(s) Sexually active: No Do you think of yourself as: straight/heterosexual Current gender identity: male What is your relationship status?: How often do you talk on the phone with friends or family?: twice per week How often do you get together with friends or relatives?: never Do you belong to any clubs or organized social groups?: no Panel score (0-1 are the most socially isolated patients): 0 What type of physical activity do you participate in: walking Duration: 15-30 minutes/day Frequency: 5-6 times per week Maryam/[employer]ist: Catholic Special maryam needs: No Seatbelt use: always Helmet use: Yes Helmet use: always Drive intox or ride w/intox power truck 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
[2025-02-27 13:51] VITALS: RESP 16
== END 2025-02-27 13:51 | disposition home or self-care (01) ==
PROVIDERS: Emergency Provider Emergency Medicine; PCP Physician Assistant
DX: I26.99 Other pulmonary embolism without acute cor pulmonale (principal); F41.9 Anxiety disorder, unspecified
CPT/HCPCS: 99283; 99284; 93308

== ENCOUNTER 2025-02-28 07:40 | Emergency (ER) | payer OTHER, SELFPAY ==
[2025-02-28 07:50] VITALS: BP 123/79; PULSE 103; RESP 16; TEMP 37.3; O2SAT 97
--- NOTE | 2025-02-28 07:50 | W.ED.GENAD ---
Discharge Plan Disposition Patient Disposition: Home Condition: Good Discharge Details Clinical Impression: Edema, peripheral Primary Care Provider: Sanjana Pritchett ED Provider: Richy Eagle Home Meds and New Rx's Prescriptions: No Action gabapentin 300 mg capsule 300 mg PO BID Qty: 180 3RF omeprazole 40 mg capsule,delayed release(DR/EC) 40 mg PO DAILY Qty: 90 3RF lorazepam 1 mg tablet 1 mg PO DAILY PRN (Reason: anxiety) Qty: 10 0RF Rx Instructions: Use when considering ER visit cyclobenzaprine 10 mg tablet 10 mg PO TID PRN (Reason: muscle spasm) Qty: 30 3RF methadone 10 mg/5 mL solution 100 mg PO QAM calcitriol 0.5 mcg capsule 1 mcg PO .COMPLEX Qty: 270 3RF Rx Instructions: 1 mcg orally t2 tabs qam and 1 tab QHS; clonazepam 1 mg tablet 1 mg PO BID Qty: 10 0RF calcium carbonate [Tums] 200 mg calcium (500 mg) tablet,chewable 2,000 mg PO BID prochlorperazine maleate 5 mg tablet 5 mg PO TID PRN (Reason: acute nausea) Qty: 30 0RF polyethylene glycol 3350 17 gram powder in packet 17 g PO BID PRN magnesium gluconate 27 mg magnesium (500 mg) tablet 500 mg PO BID Rx Instructions: takes 500mg QAM and 1000mg QHS diclofenac sodium 1 % gel 2 g topical QID Qty: 50 0RF Rx Instructions: apply to single elbow, wrist or hand; for hand includes palm/fingers/back of hand apixaban 5 mg tablet 10 mg PO BID 7 Days Qty: 28 0RF oxycodone 10 mg tablet 10 mg PO Q6H PRNQty: 14 0RF Discharge Instructions Instructions: Swelling Additional Instructions: At this time your laboratory workup has returned very reassuring. No signs of blood clots or other significant abnormalities. No evidence of heart failure. Please avoid salty foods. Keep your legs elevated throughout the day. Wear the stockings to prevent any swelling in the lower extremities. If you notice any worsening of your symptoms, or any new symptoms such as vomiting, diarrhea, fever, chills, shortness of breath, chest pain, numbness, weakness, or fainting , please return immediately to the emergency department for reevaluation. Please follow up with your primary care provider as soon as possible for reassessment and reevaluation. As always, it was a pleasure participating in your medical care today. Referrals: Sanjana Pritchett [Primary Care Provider, Medicine] HPI General Date/Time Provider Initiated Documentation: 02/28/25 07:50. HPI Narrative: This is a 29-year-old male with a past medical history significant for anxiety, depression, high cholesterol, men type I, multiple electrolyte abnormalities with subsequent parathyroidectomy on 03/26/2022 at [facility] [place], PTSD, GERD, cholecystectomy 12/07, bilateral pulmonary embolisms with left-sided pulmonary infarct (diagnosed 02/2025) now on apixaban presents today for evaluation of swelling in his lower extremities. Patient has not yet had an ultrasound of his lower extremities. Patient states that for the last few hours he noticed when he woke up that his feet and legs were certainly more swollen than normal. He denies any calf pain or pain in his feet. He states they have not become swollen like this before. He has been taking his Eliquis as prescribed. He has not taken this morning's dose yet because he takes it at 8:30 in the morning and it is earlier than that. He denies any pleuritic chest pain or syncope. No new shortness of breath. No other complaints at this time. He denies any trauma to the lower extremities. Related Data Home Medications ?Medication ?Instructions ?Recorded ?Confirmed calcium carbonate (Tums) 2,000 mg PO BID 02/02/23 02/28/25 methadone 10 mg/5 mL oral solution 100 mg PO QAM 06/12/23 02/28/25 prochlorperazine maleate 5 mg 5 mg PO TID PRN acute nausea #30 09/06/23 02/28/25 tablet tabs gabapentin 300 mg capsule 300 mg PO BID #180 caps 06/01/24 02/28/25 calcitriol 0.5 mcg capsule 1 mcg (2 x 0.5 mcg) PO .COMPLEX 06/29/24 02/28/25 #270 caps omeprazole 40 mg capsule,delayed 40 mg PO DAILY #90 caps 07/27/24 02/28/25 release polyethylene glycol 3350 17 gram 17 g PO BID PRN 10/15/24 02/28/25 oral powder packet lorazepam 1 mg tablet 1 mg PO DAILY PRN anxiety #10 tabs 10/19/24 02/28/25 cyclobenzaprine 10 mg tablet 10 mg PO TID PRN muscle spasm #30 11/16/24 02/28/25 tabs magnesium gluconate 27 mg 500 mg PO BID 01/30/25 02/28/25 magnesium (500 mg) tablet diclofenac sodium 1 % topical gel 2 g topical QID #50 grams 02/03/25 02/28/25 clonazepam 1 mg tablet 1 mg PO BID #10 tabs 02/08/25 02/28/25 apixaban 5 mg tablet 10 mg (2 x 5 mg) PO BID 7 days #28 02/23/25 02/28/25 tabs oxycodone 10 mg tablet 10 mg PO Q6H PRN #14 tabs 02/23/25 02/28/25 Previous Rx's ?Medication ?Instructions ?Recorded prochlorperazine maleate 5 mg 5 mg PO TID PRN acute nausea #30 09/06/23 tablet tabs gabapentin 300 mg capsule 300 mg PO BID #180 caps 06/01/24 calcitriol 0.5 mcg capsule 1 mcg (2 x 0.5 mcg) PO .COMPLEX 06/29/24 #270 caps omeprazole 40 mg capsule,delayed 40 mg PO DAILY #90 caps 07/27/24 release lorazepam 1 mg tablet 1 mg PO DAILY PRN anxiety #10 tabs 10/19/24 cyclobenzaprine 10 mg tablet 10 mg PO TID PRN muscle spasm #30 11/16/24 tabs diclofenac sodium 1 % topical gel 2 g topical QID #50 grams 02/03/25 clonazepam 1 mg tablet 1 mg PO BID #10 tabs 02/08/25 apixaban 5 mg tablet 10 mg (2 x 5 mg) PO BID 7 days #28 02/23/25 tabs oxycodone 10 mg tablet 10 mg PO Q6H PRN #14 tabs 02/23/25 Allergies Allergy/AdvReac Type Severity Reaction Status Date / Time codeine Allergy Intermediate pass out Verified 02/28/25 07:55 Penicillins Allergy Skin Rash Verified 02/28/25 07:55 marijuana (cannabis) AdvReac Severe Paranoia Verified 02/28/25 07:55 amoxicillin AdvReac Intermediate Nausea Verified 02/28/25 07:55 dextromethorphan (From AdvReac Intermediate got Verified 02/28/25 07:55 NyQuil) really hot and sweaty doxylamine (From NyQuil) AdvReac Intermediate got Verified 02/28/25 07:55 really hot and sweaty pseudoephedrine (From NyQuil) AdvReac Intermediate got Verified 02/28/25 07:55 really hot and sweaty General ADRIANA: 3 Exam Narrative Exam Narrative: 1.Const: Well-nourished, Well-developed, appearing stated age 2.Eyes: PERRL, no conjunctival injection, and symmetrical lids. 3.ENT: Atraumatic external nose and ears. Moist MM. Neck: Symmetric, trachea midline, No thyromegaly. 4.CVS: +S1/S2, Peripheral pulses 2+ and equal in all extremities. Brisk capillary refill in all extremities. 5.RESP: Unlabored respiratory effort. Clear to auscultation bilaterally. No wheezes rales or rhonchi 6.GI: Soft, Nontender/Nondistended, No hepatosplenomegaly. No guarding or rebound. 7.MSK: Normocephalic/Atraumatic, Extremities w/o deformity or ttp No cyanosis or clubbing, Normal movement of all extremities. Patient does have mild pitting edema in the feet bilaterally, roughly +1. As well as +1 trace pitting edema in the shins bilaterally. No calf tenderness. No pallor or violaceous coloring. Dorsalis pedis and posterior tibial pulses +2 bilaterally. Sensation intact. 8.Skin: Warm, Dry. No rashes or lesions. 9.Neuro: filler shaker II-XII grossly intact. Sensation grossly intact, no focal neurologic deficits. 10.Psych: (AAO) x3. Appropriate mood and affect Medical Decision Making This is a 29-year-old male with a past medical history significant for anxiety, depression, high cholesterol, men type I, multiple electrolyte abnormalities with subsequent parathyroidectomy on 03/26/2022 at [facility] [place], PTSD, GERD, cholecystectomy 12/07, bilateral pulmonary embolisms with left-sided pulmonary infarct (diagnosed 02/2025) now on apixaban presents today for evaluation of swelling in his lower extremities. Patient has not yet had an ultrasound of his lower extremities. Patient states that for the last few hours he noticed when he woke up that his feet and legs were certainly more swollen than normal. He denies any calf pain or pain in his feet. He states they have not become swollen like this before. He has been taking his Eliquis as prescribed. He has not taken this morning's dose yet because he takes it at 8:30 in the morning and it is earlier than that. He denies any pleuritic chest pain or syncope. No new shortness of breath. No other complaints at this time. He denies any trauma to the lower extremities. Exam demonstrates trace pitting edema of the lower extremities bilaterally, no calf tenderness. Negative Homans' sign. Intact pulses and sensation. No color changes to suggest phlegmasia Cerulea Art's or phlegmasia cerulea alba. Concern for DVT, mild heart failure secondary to PE burden, general fluid overload secondary to salty diet versus mild CHF. Will evaluate for these etiologies monitor closely and reassess. 8:44 AM During the ultrasound, and there is no evidence of severe heart failure. Cardiac contractility appears intact, right ventricle does show mild dilatation, but there is still contractile effort. Pedro Pablo also notes during this time that he has been sleeping at night with him in a chair not reclined with his legs hanging down. This may certainly be a component as to the reason why he has been having the swelling. We have raised his feet now here in the ED and the swelling seems to be improving. Will still continue on a rule out process. 10:15 AM Laboratory workup is returned, no white count or bandemia, hemoglobin stable, renal function slightly improving compared to normal. proBNP normal suggesting no signs of heart strain. Troponin benign. No other abnormality. Ultrasound of the lower extremities bilaterally shows no evidence of DVT. Patient feels well. Patient remains on anticoagulant. I suspect the swelling is secondary to combination of his legs hanging down, potentially diet, and it is PE which does not show evidence to suggest heart strain. Will give stockings for home use, recommend dietary changes. Discussed red flags for which to return. I have extensively reviewed the treatment plan and discharge instructions with the patient. I have addressed all patient concerns at this time. The patient was made aware of what symptoms to monitor for that would warrant a return to the emergency department. Discussed the plan with the patient, they demonstrate verbal understanding and agreement with our assessment and plan at this time. The documentation in this chart was dictated using [employer] dictation software. Please excuse any dictation errors. FINDINGS: The right common femoral, femoral and popliteal veins demonstrate normal compressibility, augmentation, and color Doppler. The posterior tibial and peroneal veins are patent. The saphenofemoral junction is unremarkable. There is no evidence of a Almanza's cyst. The soft tissues are unremarkable. The left common femoral, femoral and popliteal veins demonstrate normal compressibility, augmentation, and color Doppler. The posterior tibial and peroneal veins are patent. The saphenofemoral junction is unremarkable. There is no evidence of a Almanza's cyst. The soft tissues are unremarkable. IMPRESSION: 1. No evidence of a right lower extremity DVT. 2. No evidence of a left lower extremity DVT. Quality:SDOH Health Related Social Needs: Health related social needs daily activities PFSH All Active Problems (Updated 02/28/25 @ 10:18 by Richy Eagle DO) Edema, peripheral (Acute) Anxiety (Chronic) Chest discomfort (Acute) Pulmonary embolism and infarction (Acute) Left pulmonary infiltrate on CXR (Acute) Bilateral pulmonary embolism (Acute) Tenderness of neck (Acute) Right elbow pain (Acute) Acute leg pain (Acute) Bronchitis (Acute) Well adult health check (Acute) Obstructive sleep apnea (Chronic) Metabolic dysfunction-associated fatty liver disease (MAFLD) (Acute) Fatty liver (Acute) IBS (irritable bowel syndrome) (Chronic) Obesity (Chronic) Migraine with aura (Acute) Testicle lump (Acute) Pes anserine bursitis (Acute) Left-sided Flower's palsy (Acute) Opiate dependence, continuous (Acute) 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 Possible 2' Methadone, Clnzpm (?). Surg eval (+)/No further action. History of electrolyte imbalance (Acute) Neck pain on left side (Acute) with shoulder, upper back pain.. torticollis, radiating into left hip/leg Pulmonary nodule 1 cm or greater in diameter (Chronic) Therapeutic opioid induced constipation (Acute) Sphincter of Oddi dysfunction (Chronic) Abnormal CT scan, kidney (Acute) Intrahepatic bile duct dilation (Acute) Common bile duct dilatation (Chronic) Has been dilated for quite some time, now more-so. Normal LFTs. Known gallstones. Depression (Chronic) Elevated parathyroid hormone (Acute) Family history of coronary arteriosclerosis (Chronic) Father of AK at 50, mother had AK at 42 Severe anxiety with panic (Chronic) Medical History Multiple endocrine neoplasia type I CKD (chronic kidney disease) stage 2, GFR 60-89 ml/min GFR 64-65, with Hx FLORESITA and GFR < 45 Primary hyperparathyroidism Complex medical condition Serious electrolyte imbalances, with gynecomastia, possible MEN Dx, CKD and anemia with baseline anxiety and Hx PTSD. Hypocalcemia Anxiety Depression Hyperlipidemia Family history of multiple endocrine neoplasia, type 1 PTSD (post-traumatic stress disorder) Per pt. states no triggers at this time. Surgical History History of laparoscopic cholecystectomy (~11/2023) H/O parathyroidectomy Family History Mother Anxiety Asthma Depression Sister Anxiety Depression Father Cancer lung & stomach Depression Diabetes Hypertension MEN 1 (multiple endocrine neoplasia) Social History Smoking/Tobacco Use Status: Never Smoking risk assessment performed?: Yes Alcohol Intake: never Drug use: Current Sobriety Substance use type: former substance user, crack/cocaine, heroin and painkillers Details: stopped using substances for the past 4 years Adopted: No Caregiver/Support person: No Foster care: No Household members: none Housing: apartment Number of Children: 0 Communication Needs: None Education Level: high school Do you need help understanding health information?: Never current occupation: [employer] Pets and animals: Yes (Ally) Pets and animals: dog(s) Sexually active: No Do you think of yourself as: straight/heterosexual Current gender identity: male What is your relationship status?: How often do you talk on the phone with friends or family?: twice per week How often do you get together with friends or relatives?: never Do you belong to any clubs or organized social groups?: no Panel score (0-1 are the most socially isolated patients): 0 What type of physical activity do you participate in: walking Duration: 15-30 minutes/day Frequency: 5-6 times per week Maryam/Rastafarian: Worship Special maryam needs: No Seatbelt use: always Helmet use: Yes Helmet use: always Drive intox or ride w/intox marine engine driver: No Do you feel safe at home: Yes Do you feel safe in your relationship?: Yes POCUS Exam (ED) Limited Cardiac Exam DATE OF EXAM: 02/28/25 TIME OF EXAM: 08:45 PROVIDER THAT PERFORMED THE STUDY: Richy Eagle IS THIS A REPEAT EXAM DURING THIS ENCOUNTER: no REASON FOR EXAM: Right heart strain/PE VISUALIZED STRUCTURES: Left atrium, Left ventricle, Right ventricle, Aortic valve, Mitral valve and Interventricular septum VIEW OBTAINED: Parasternal long-axis PERTINENT FINDINGS/IMPRESSION: RV dysfunction (Subtle right ventricular dysfunction, but certainly not severe. ) Exam complete
--- NOTE | 2025-02-28 08:15 | RT.EKG_ITS ---
APPROVED REPORT Exam: Resting ECG Reason for Exam: SOB Patient Location: E HR:106 bpm ECG Measurements Heart Rate 106 AXIS MN 176 P 33 QRSd 96 QRS 36 QT 357 T 15 QTc 474 Conclusion Sinus tachycardia...rate> 99 Physician: No STEMI
--- NOTE | 2025-02-28 08:19 | DI.US_ITS ---
Exam(s) US EXTREMITY VENOUS BI EXAM: US EXTREMITY VENOUS BI CLINICAL HISTORY: History of PE, eval for DVT. TECHNIQUE: Bilateral lower extremity venous ultrasound performed using grayscale, color-flow, and spectral Doppler analysis. COMPARISON: No exams were available for comparison FINDINGS: The right common femoral, femoral and popliteal veins demonstrate normal compressibility, augmentation, and color Doppler. The posterior tibial and peroneal veins are patent. The saphenofemoral junction is unremarkable. There is no evidence of a Almanza's cyst. The soft tissues are unremarkable. The left common femoral, femoral and popliteal veins demonstrate normal compressibility, augmentation, and color Doppler. The posterior tibial and peroneal veins are patent. The saphenofemoral junction is unremarkable. There is no evidence of a Almanza's cyst. The soft tissues are unremarkable. IMPRESSION: 1. No evidence of a right lower extremity DVT. 2. No evidence of a left lower extremity DVT. DATA REPOSITORY:
[2025-02-28 08:32] LABS: Abs Immature Grans 0.05 10^3/uL (0.0-0.06); HCT 31.3 % (40.0-50.0); HGB 9.7 g/dL (13.5-17.5); Immature Grans % 0.5 %; MCH 26.4 pg (27.0-33.0); MCHC 31.0 % (32.0-36.0); MCV 85 fL (80-95); MPV 10.0 fL (8.0-11.0); Platelet Count 413 10^3/uL (130-400); RBC 3.68 10^6/uL (4.36-5.78); RDW 17.2 % (11.8-14.1); RDW-SD 52.6 fL; WBC 9.28 10^3/uL (4.4-10.8)
[2025-02-28] MEDS: Apixaban 5 MG TAB 10 MG PO (08:35)
[2025-02-28 08:51] LABS: INR 1.1 (0.9-1.1); PTT Activated 28.8 sec (20.6-30.2); Prothrombin Time 10.8 sec (9.1-11.1)
[2025-02-28 09:03] LABS: ALT 38 U/L (16-63); AST 23 U/L (15-37); Albumin 3.2 g/dL (3.4-5.0); Alkaline Phosphatase 158 U/L (46-116); Anion Gap 9.3 mmol/L (3-11); BUN 14 mg/dL (7-18); Bilirubin, Total 0.3 mg/dL (0.2-1.0); CO2 30.7 mmol/L (21.0-32.0); Calcium 8.9 mg/dL (8.5-10.1); Chloride 98 mmol/L (98-107); Estimated GFR 54.59 (mL/min/1.73m2); Glucose 111 mg/dL (74-106); NT-proBNP 20 pg/mL (<300); Potassium 3.7 mmol/L (3.5-5.1); Sodium 138 mmol/L (136-145); Total Protein 8.7 g/dL (6.4-8.2); Troponin I < 4 ng/L (<or=76)
[2025-02-28 10:22] VITALS: RESP 18
[2025-02-28 10:25] LABS: Troponin I < 4 ng/L (<or=76)
[2025-02-28 11:20] VITALS: BP 124/74; PULSE 100; RESP 16; TEMP 37.4; O2SAT 96
--- NOTE | 2025-02-28 11:22 | NUR.NOTE ---
Nursing Note:this RN applied z ESTEBAN
--- NOTE | 2025-02-28 11:22 | NUR.NOTE ---
Nursing Note: this RN applied xxx-lg knee high TEDS per provider order. Educated pt on elevating legs while sleeping, how ot apply and when to take off TEDS
== END 2025-02-28 11:19 | disposition home or self-care (01) ==
PROVIDERS: Emergency Provider Student in an Organized Health Care Education/Training Program; PCP Physician Assistant
DX: R60.0 Localized edema (principal); Z79.01 Long term (current) use of anticoagulants; Z86.711 Personal history of pulmonary embolism
CPT/HCPCS: 99283; 99284; 36415; 80053; 93005; 93308; 83880; 84484; 85025; 85610; 85730; 93010; 93970

== ENCOUNTER 2025-03-01 20:42 | Emergency (ER) | payer OTHER, SELFPAY ==
--- NOTE | 2025-03-01 20:45 | RT.EKG_ITS ---
APPROVED REPORT Exam: Resting ECG Reason for Exam: SoB Patient Location: E HR:95 bpm ECG Measurements Heart Rate 95 AXIS NV 177 P 41 QRSd 99 QRS 43 QT 373 T 22 QTc 469 Conclusion Sinus rhythm, rate 95 No interval abnormalities No STEMI No significant changes from priors
[2025-03-01 20:46] VITALS: BP 139/94; PULSE 95; RESP 20; TEMP 36.8; O2SAT 96
--- NOTE | 2025-03-01 21:00 | DI.RAD_ITS ---
Exam(s) XR CHEST 2V PA LATERAL EXAM: XR CHEST 2V PA LATERAL CLINICAL HISTORY: Worsening SOB/cough. TECHNIQUE: 2D digital imaging was performed. COMPARISON: CR,XR XR CHEST 2V PA LATERAL from 02/24/2025 FINDINGS: 2 views: Heart size is normal. The mediastinum is not widened. Lungs are clear. No infiltrates nor pleural effusions. IMPRESSION: No acute pulmonary findings. DATA REPOSITORY: RADIATION DOSE DELIVERED:
[2025-03-01 21:31] VITALS: BP 139/94; PULSE 95; RESP 20; TEMP 36.8; O2SAT 96
[2025-03-01 21:41] LABS: Abs Immature Grans 0.03 10^3/uL (0.0-0.06); HCT 30.6 % (40.0-50.0); HGB 9.3 g/dL (13.5-17.5); Immature Grans % 0.3 %; MCH 25.8 pg (27.0-33.0); MCHC 30.4 % (32.0-36.0); MCV 85 fL (80-95); MPV 10.2 fL (8.0-11.0); Platelet Count 468 10^3/uL (130-400); RBC 3.60 10^6/uL (4.36-5.78); RDW 16.8 % (11.8-14.1); RDW-SD 52.6 fL; WBC 9.98 10^3/uL (4.4-10.8)
[2025-03-01 22:08] LABS: ALT 31 U/L (16-63); AST 25 U/L (15-37); Albumin 3.2 g/dL (3.4-5.0); Alkaline Phosphatase 165 U/L (46-116); Anion Gap 6.5 mmol/L (3-11); BUN 14 mg/dL (7-18); Bilirubin, Total 0.2 mg/dL (0.2-1.0); CO2 32.5 mmol/L (21.0-32.0); Calcium 9.3 mg/dL (8.5-10.1); Chloride 99 mmol/L (98-107); Estimated GFR 58.71 (mL/min/1.73m2); Glucose 97 mg/dL (74-106); Magnesium 1.9 mg/dL (1.8-2.4); Potassium 3.7 mmol/L (3.5-5.1); Sodium 138 mmol/L (136-145); Total Protein 8.5 g/dL (6.4-8.2)
[2025-03-01 22:09] LABS: Troponin I < 4 ng/L (<or=76)
[2025-03-01 22:30] LABS: NT-proBNP 44 pg/mL (<300)
--- NOTE | 2025-03-01 22:32 | W.ED.GENAD ---
Discharge Plan Disposition Patient Disposition: Home Condition: Stable Discharge Details Clinical Impression: Shortness of breath Primary Care Provider: Sanjana Pritchett ED Provider: Tere Adams Home Meds and New Rx's Prescriptions: No Action gabapentin 300 mg capsule 300 mg PO BID Qty: 180 3RF omeprazole 40 mg capsule,delayed release(DR/EC) 40 mg PO DAILY Qty: 90 3RF lorazepam 1 mg tablet 1 mg PO DAILY PRN (Reason: anxiety) Qty: 10 0RF Rx Instructions: Use when considering ER visit cyclobenzaprine 10 mg tablet 10 mg PO TID PRN (Reason: muscle spasm) Qty: 30 3RF methadone 10 mg/5 mL solution 100 mg PO QAM calcitriol 0.5 mcg capsule 1 mcg PO .COMPLEX Qty: 270 3RF Rx Instructions: 1 mcg orally t2 tabs qam and 1 tab QHS; clonazepam 1 mg tablet 1 mg PO BID Qty: 10 0RF calcium carbonate [Tums] 200 mg calcium (500 mg) tablet,chewable 2,000 mg PO BID prochlorperazine maleate 5 mg tablet 5 mg PO TID PRN (Reason: acute nausea) Qty: 30 0RF polyethylene glycol 3350 17 gram powder in packet 17 g PO BID PRN magnesium gluconate 27 mg magnesium (500 mg) tablet 500 mg PO BID Rx Instructions: takes 500mg QAM and 1000mg QHS diclofenac sodium 1 % gel 2 g topical QID Qty: 50 0RF Rx Instructions: apply to single elbow, wrist or hand; for hand includes palm/fingers/back of hand apixaban 5 mg tablet 10 mg PO BID 7 Days Qty: 28 0RF oxycodone 10 mg tablet 10 mg PO Q6H PRNQty: 14 0RF Discharge Instructions Instructions: Shortness of Breath, Adult ED Additional Instructions: You were seen in the emergency department today for evaluation of shortness of breath and transient decreases in your oxygen saturation. In our department had a full physical examination performed, had a reassuring chest x-ray and no sign of new or worsening pneumonia or pulmonary infarcts. Your labs were reassuring and we monitored your oxygen without concerning findings. At this time it is safe for you to go home and continue to take all of your medications as prescribed, though I do recommend that you follow-up with your primary care provider and your lieutenant/deputy to discuss this visit and any symptoms that change, worsen, persist. Thank you for allowing us to be part of your care. HPI General Mode of arrival: ambulatory. Date/Time Provider Initiated Documentation: 03/01/25 20:51. Limitations to Documentation: no limitations. Information obtained by: patient and old records reviewed. HPI Narrative: This is a 29-year-old male patient with a history of M EN, recently diagnosed bilateral pulmonary embolisms now on Eliquis, history of JOSE JUAN, anxiety, presenting for evaluation of shortness of breath. The patient reports that he laid down this afternoon and dozed off, and noticed that he seemed to desaturate during these events to the mid to high 80s. He reports that his oxygen saturations recovered, though he feels like it is easier to take a deep breath through his nose than it is through his mouth. His work of breathing seems to worsen when he lays down, he has been sleeping in a reclined/semiupright position. Denies missing doses of Eliquis, no chest pain, no fevers or chills. No new leg swelling. States that when he wakes up from sleep he seems to have to cough to catch his breath. Is not aware of any history of sleep apnea or obesity hypoventilation syndrome. Related Data Home Medications ?Medication ?Instructions ?Recorded ?Confirmed calcium carbonate (Tums) 2,000 mg PO BID 02/02/23 03/01/25 methadone 10 mg/5 mL oral solution 100 mg PO QAM 06/12/23 03/01/25 prochlorperazine maleate 5 mg 5 mg PO TID PRN acute nausea #30 09/06/23 03/01/25 tablet tabs gabapentin 300 mg capsule 300 mg PO BID #180 caps 06/01/24 03/01/25 calcitriol 0.5 mcg capsule 1 mcg (2 x 0.5 mcg) PO .COMPLEX 06/29/24 03/01/25 #270 caps omeprazole 40 mg capsule,delayed 40 mg PO DAILY #90 caps 07/27/24 03/01/25 release polyethylene glycol 3350 17 gram 17 g PO BID PRN 10/15/24 03/01/25 oral powder packet lorazepam 1 mg tablet 1 mg PO DAILY PRN anxiety #10 tabs 10/19/24 03/01/25 cyclobenzaprine 10 mg tablet 10 mg PO TID PRN muscle spasm #30 11/16/24 03/01/25 tabs magnesium gluconate 27 mg 500 mg PO BID 01/30/25 03/01/25 magnesium (500 mg) tablet diclofenac sodium 1 % topical gel 2 g topical QID #50 grams 02/03/25 03/01/25 clonazepam 1 mg tablet 1 mg PO BID #10 tabs 02/08/25 03/01/25 apixaban 5 mg tablet 10 mg (2 x 5 mg) PO BID 7 days #28 02/23/25 03/01/25 tabs oxycodone 10 mg tablet 10 mg PO Q6H PRN #14 tabs 02/23/25 03/01/25 Previous Rx's ?Medication ?Instructions ?Recorded prochlorperazine maleate 5 mg 5 mg PO TID PRN acute nausea #30 09/06/23 tablet tabs gabapentin 300 mg capsule 300 mg PO BID #180 caps 06/01/24 calcitriol 0.5 mcg capsule 1 mcg (2 x 0.5 mcg) PO .COMPLEX 06/29/24 #270 caps omeprazole 40 mg capsule,delayed 40 mg PO DAILY #90 caps 07/27/24 release lorazepam 1 mg tablet 1 mg PO DAILY PRN anxiety #10 tabs 10/19/24 cyclobenzaprine 10 mg tablet 10 mg PO TID PRN muscle spasm #30 11/16/24 tabs diclofenac sodium 1 % topical gel 2 g topical QID #50 grams 02/03/25 clonazepam 1 mg tablet 1 mg PO BID #10 tabs 02/08/25 apixaban 5 mg tablet 10 mg (2 x 5 mg) PO BID 7 days #28 02/23/25 tabs oxycodone 10 mg tablet 10 mg PO Q6H PRN #14 tabs 02/23/25 Allergies Allergy/AdvReac Type Severity Reaction Status Date / Time codeine Allergy Intermediate pass out Verified 02/28/25 07:55 Penicillins Allergy Skin Rash Verified 02/28/25 07:55 marijuana (cannabis) AdvReac Severe Paranoia Verified 02/28/25 07:55 amoxicillin AdvReac Intermediate Nausea Verified 02/28/25 07:55 dextromethorphan (From AdvReac Intermediate got Verified 02/28/25 07:55 NyQuil) really hot and sweaty doxylamine (From NyQuil) AdvReac Intermediate got Verified 02/28/25 07:55 really hot and sweaty pseudoephedrine (From NyQuil) AdvReac Intermediate got Verified 02/28/25 07:55 really hot and sweaty General Stated Complaint: SOB ADRIANA: 3 Exam Narrative Exam Narrative: Gen: Awake and alert, in no apparent distress HEENT: Non-icteric sclera Neck: Supple Lungs: No apparent respiratory distress, normal respiratory effort. Lung sounds clear and equal bilaterally CV: Appears well perfused, heart with regular rate and rhythm, strong distal pulses Abdomen: Non-distended MSK: Moves 4 extremities without apparent limitation in ROM. No peripheral edema Skin: Visualized skin without rashes, cyanosis. Neuro: Normal Gait, no obvious focal deficits or facial asymmetry. Speaks in full, clear sentences. Psych: Appropriate for situation. Course Vital Signs Vital signs: Vital Signs Temperature 36.8 C 03/01/25 20:46 Pulse 95 H 03/01/25 20:46 Respiratory Rate 20 03/01/25 20:46 Blood Pressure 139/94 H 03/01/25 20:46 Pulse Oximetry 96 03/01/25 20:46 Temperature 36.8 C 03/01/25 21:31 Pulse 95 H 03/01/25 21:31 Respiratory Rate 20 03/01/25 21:31 Respiratory Effort Short of Breath 03/01/25 21:31 Respiratory Depth Normal 03/01/25 21:31 Respiratory Pattern Normal 03/01/25 21:31 Blood Pressure 139/94 H 03/01/25 21:31 Blood Pressure Position Sitting 03/01/25 21:31 Pulse Oximetry 96 03/01/25 21:31 Oxygen Delivery Method Room Air 03/01/25 21:31 Oxygen Flow Rate 0 03/01/25 21:31 Pain Level 0 03/01/25 21:31 Lab/Test Results Lab/Test Results: Laboratory Tests Range/Units 03/01/25 21:18 WBC (4.4-10.8) 10^3/uL 9.98 RBC (4.36-5.78) 10^6/uL 3.60 L Hgb (13.5-17.5) g/dL 9.3 L Hct (40.0-50.0) % 30.6 L MCV (80-95) fL 85 MCH (27.0-33.0) pg 25.8 L MCHC (32.0-36.0) % 30.4 L RDW (11.8-14.1) % 16.8 H Plt Count (130-400) 10^3/uL 468 H MPV (8.0-11.0) fL 10.2 Immature Gran % % 0.3 Neutrophils % % 64.2 Lymphocytes % % 23.8 Monocytes % % 8.2 Eosinophils % % 3.0 Basophils % % 0.5 Nucleated RBC % (0.0-0.3) % 0.0 Absolute Neutrophils (1.2-6.7) 10^3/uL 6.40 Absolute Lymphocytes (1.2-3.4) 10^3/uL 2.38 Absolute Monocytes (0.1-0.8) 10^3/uL 0.82 H Absolute Eosinophils (0.0-0.7) 10^3/uL 0.30 Absolute Basophils (0.0-0.2) 10^3/uL 0.05 Sodium (136-145) mmol/L 138 Potassium (3.5-5.1) mmol/L 3.7 Chloride (98-107) mmol/L 99 Carbon Dioxide (21.0-32.0) mmol/L 32.5 H Anion Gap (3-11) mmol/L 6.5 BUN (7-18) mg/dL 14 Creatinine (0.70-1.30) mg/dL 1.6 H Est GFR (CKD-EPI 2020) (mL/min/1.73m2) 58.71 Glucose (74-106) mg/dL 97 Calcium (8.5-10.1) mg/dL 9.3 Magnesium (1.8-2.4) mg/dL 1.9 Total Bilirubin (0.2-1.0) mg/dL 0.2 AST (15-37) U/L 25 ALT (16-63) U/L 31 Alkaline Phosphatase (46-116) U/L 165 H Troponin I (<or=76) ng/L < 4 Total Protein (6.4-8.2) g/dL 8.5 H Albumin (3.4-5.0) g/dL 3.2 L Medical Decision Making This is a 29-year-old male patient presenting for evaluation of shortness of breath and transient hypoxia. Differential includes but is not limited to sequelae of his known pulmonary embolisms, certainly considered infectious pathologies including bronchitis and pneumonia, no chest pain to suggest ACS, consider pulmonary infarct, pulmonary edema and pleural effusion. Finally,'s considered sequelae of the patient's documented JOSE JUAN EKG obtained and shows a sinus rhythm without evidence of ischemia, interval abnormality, or ectopy.. I will obtain chest x-ray, and labs to include CBC, CMP, magnesium, troponin, and BNP. We will observe the patient on pulse oximetry. -I reviewed the patient's laboratory studies, which shows no leukocytosis, the patient has a stable/slightly worsened anemia compared to his baseline, no thrombocytopenia. Chemistry panel is without electrolyte derangement, kidney injury, or liver disease. Troponin is undetectable and BNP is very low. Chest x-ray reviewed and shows no abnormalities to account for the patient's symptoms, and in fact shows resolution of the left-sided opacities noted immediately after his pulmonary embolism diagnosis. The patient was observed on telemetry, and no sustained desaturation events were identified even when the patient was resting. I counseled the patient sleep study may be indicated and he should follow-up with his primary care provider for this discussion. He has a follow-up visit with the lieutenant/deputy for his pulmonary embolism coming up in 1 week. At this time, the patient has had a full medical evaluation and is safe for discharge to home. They are hemodynamically stable, ambulatory, and tolerating PO. They are understanding of the follow-up plan and return precautions. They left our facility without incident. Tere Adams MD Quality:SDOH Health Related Social Needs: Health related social needs daily activities PFSH All Active Problems (Updated 03/01/25 @ 23:30 by Tere Adams MD) Shortness of breath (Acute) Edema, peripheral (Acute) Anxiety (Chronic) Chest discomfort (Acute) Pulmonary embolism and infarction (Acute) Left pulmonary infiltrate on CXR (Acute) Bilateral pulmonary embolism (Acute) Tenderness of neck (Acute) Right elbow pain (Acute) Acute leg pain (Acute) Bronchitis (Acute) Well adult health check (Acute) Obstructive sleep apnea (Chronic) Metabolic dysfunction-associated fatty liver disease (MAFLD) (Acute) Fatty liver (Acute) IBS (irritable bowel syndrome) (Chronic) Obesity (Chronic) Migraine with aura (Acute) Testicle lump (Acute) Pes anserine bursitis (Acute) Left-sided Flower's palsy (Acute) Opiate dependence, continuous (Acute) 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 Possible 2' Methadone, Clnzpm (?). Surg eval (+)/No further action. History of electrolyte imbalance (Acute) Neck pain on left side (Acute) with shoulder, upper back pain.. torticollis, radiating into left hip/leg Pulmonary nodule 1 cm or greater in diameter (Chronic) Therapeutic opioid induced constipation (Acute) Sphincter of Oddi dysfunction (Chronic) Abnormal CT scan, kidney (Acute) Intrahepatic bile duct dilation (Acute) Common bile duct dilatation (Chronic) Has been dilated for quite some time, now more-so. Normal LFTs. Known gallstones. Depression (Chronic) Elevated parathyroid hormone (Acute) Family history of coronary arteriosclerosis (Chronic) Father of [place] at 50, mother had [place] at 42 Severe anxiety with panic (Chronic) Medical History Multiple endocrine neoplasia type I CKD (chronic kidney disease) stage 2, GFR 60-89 ml/min GFR 64-65, with Hx FLORESITA and GFR < 45 Primary hyperparathyroidism Complex medical condition Serious electrolyte imbalances, with gynecomastia, possible MEN Dx, CKD and anemia with baseline anxiety and Hx PTSD. Hypocalcemia Anxiety Depression Hyperlipidemia Family history of multiple endocrine neoplasia, type 1 PTSD (post-traumatic stress disorder) Per pt. states no triggers at this time. Surgical History History of laparoscopic cholecystectomy (~11/2023) H/O parathyroidectomy Family History Mother Anxiety Asthma Depression Sister Anxiety Depression Father Cancer lung & stomach Depression Diabetes Hypertension MEN 1 (multiple endocrine neoplasia) Social History Smoking/Tobacco Use Status: Never Smoking risk assessment performed?: Yes Alcohol Intake: never Drug use: Current Sobriety Substance use type: former substance user, crack/cocaine, heroin and painkillers Details: stopped using substances for the past 4 years Adopted: No Caregiver/Support person: No Foster care: No Household members: none Housing: apartment Number of Children: 0 Communication Needs: None Education Level: high school Do you need help understanding health information?: Never current occupation: [employer] Pets and animals: Yes (Ally) Pets and animals: dog(s) Sexually active: No Do you think of yourself as: straight/heterosexual Current gender identity: male What is your relationship status?: How often do you talk on the phone with friends or family?: twice per week How often do you get together with friends or relatives?: never Do you belong to any clubs or organized social groups?: no Panel score (0-1 are the most socially isolated patients): 0 What type of physical activity do you participate in: walking Duration: 15-30 minutes/day Frequency: 5-6 times per week Maryam/Latter Day: Zoroastrian Special maryam needs: No Seatbelt use: always Helmet use: Yes Helmet use: always Drive intox or ride w/intox service parts driver: No Do you feel safe at home: Yes Do you feel safe in your relationship?: Yes
[2025-03-01 23:07] LABS: Troponin I < 4 ng/L (<or=76)
--- NOTE | 2025-03-01 23:18 | DI.VRAD_ITS ---
PROCEDURE INFORMATION: Exam: XR Chest Exam date and time: 03/01/2025 9:36 PM Age: 29 years old Clinical indication: Cough and shortness of breath; Additional info: Worsening sob/cough TECHNIQUE: Imaging protocol: Radiologic exam of the chest. Views: 2 views. COMPARISON: CT CHEST PE CTA 02/24/2025 9:29 AM FINDINGS: Lungs: The lungs are clear. No consolidative radiopacities. Pleural spaces: No pleural effusion. No pneumothorax. Heart/Mediastinum: The heart is normal size. Bones/joints: Unremarkable. IMPRESSION: No acute cardiopulmonary findings. Dictated and Authenticated by: Seema Manrique MD. Orderin [facility]. Sheldon Carranza MD
[2025-03-01 23:39] VITALS: BP 111/61; PULSE 92; RESP 16; TEMP 36.7; O2SAT 95
== END 2025-03-01 23:45 | disposition home or self-care (01) ==
PROVIDERS: Emergency Provider Emergency Medicine; PCP Physician Assistant
DX: R06.02 Shortness of breath (principal); N18.2 Chronic kidney disease, stage 2 (mild); E89.2 Postprocedural hypoparathyroidism; Z86.711 Personal history of pulmonary embolism; Z79.01 Long term (current) use of anticoagulants
CPT/HCPCS: 36415; 80053; 93005; 99284; 71046; 83735; 83880; 84484; 85025; 93010

== ENCOUNTER 2025-03-03 10:18 | Emergency (ER) | payer OTHER, SELFPAY ==
[2025-03-03 10:20] VITALS: BP 113/77; PULSE 100; RESP 20; TEMP 36.8; O2SAT 95
--- NOTE | 2025-03-03 10:43 | W.ED.GENAD ---
Discharge Plan Disposition Patient Disposition: Home Condition: Good Discharge Details Clinical Impression: Rash Primary Care Provider: Sanjana Pritchett ED Provider: Richy Eagle Home Meds and New Rx's Prescriptions: No Action gabapentin 300 mg capsule 300 mg PO BID Qty: 180 3RF omeprazole 40 mg capsule,delayed release(DR/EC) 40 mg PO DAILY Qty: 90 3RF lorazepam 1 mg tablet 1 mg PO DAILY PRN (Reason: anxiety) Qty: 10 0RF Rx Instructions: Use when considering ER visit cyclobenzaprine 10 mg tablet 10 mg PO TID PRN (Reason: muscle spasm) Qty: 30 3RF methadone 10 mg/5 mL solution 100 mg PO QAM calcitriol 0.5 mcg capsule 1 mcg PO .COMPLEX Qty: 270 3RF Rx Instructions: 1 mcg orally t2 tabs qam and 1 tab QHS; clonazepam 1 mg tablet 1 mg PO BID Qty: 10 0RF calcium carbonate [Tums] 200 mg calcium (500 mg) tablet,chewable 2,000 mg PO BID prochlorperazine maleate 5 mg tablet 5 mg PO TID PRN (Reason: acute nausea) Qty: 30 0RF polyethylene glycol 3350 17 gram powder in packet 17 g PO BID PRN magnesium gluconate 27 mg magnesium (500 mg) tablet 500 mg PO BID Rx Instructions: takes 500mg QAM and 1000mg QHS diclofenac sodium 1 % gel 2 g topical QID Qty: 50 0RF Rx Instructions: apply to single elbow, wrist or hand; for hand includes palm/fingers/back of hand Eliquis 5 mg tablet 5 mg PO BID Patient Comments: TAKE TWO TABLETS BY MOUTH TWICE A DAY FOR 7 DAYS oxycodone 10 mg tablet 10 mg PO Q6H PRNQty: 14 0RF Discharge Instructions Instructions: Skin Rash ED Additional Instructions: At this stage your rash does not appear to reflect an allergic reaction from your blood thinner. It appears more consistent currently with a bite from an insect or potentially contact irritation from an exposure to an irritant. Please take 25 mg of Benadryl every 6 hours and 10 mg of loratadine every morning. Do this for the next 5 to 7 days or until your symptoms improve. You can also apply ukbh-miy-[id number] cortisone 10 ointment as needed to the itchy areas. As we discussed together, rashes can change and represent different etiologies as they advance. Please monitor your symptoms closely and if you notice a big change or increase in the rash please return immediately for reassessment. If you notice any worsening of your symptoms, or any new symptoms such as vomiting, diarrhea, fever, chills, shortness of breath, chest pain, numbness, weakness, or fainting , please return immediately to the emergency department for reevaluation. Please follow up with your primary care provider as soon as possible for reassessment and reevaluation. As always, it was a pleasure participating in your medical care today. Referrals: Sanjana Pritchett [Primary Care Provider, Medicine] HPI General Date/Time Provider Initiated Documentation: 03/03/25 10:32. HPI Narrative: This is a 29-year-old male with a past medical history significant for anxiety, depression, high cholesterol, men type I, multiple electrolyte abnormalities [place] [facility] [place], GERD, cholecystectomy 12/07, bilateral pulmonary embolisms with left-sided pulmonary infarct (diagnosed 02/2025) now on apixaban presents today for evaluation of rash. Patient has been wearing tags stockings since being diagnosed with the pulmonary embolism. He noticed 48 hours ago 3 little bite tavera on the right lower extremity just below the knee. They were itchy only if they were scratched. The next morning he woke up with 2 little tavera on the medial aspect of his leg just below the knee, and the redness for the anterior original ones became more pronounced. Symptoms persisted to today. Slightly itchy. No fever or chills. All lesions are just proximal to where his stockings and. He denies any change in medications. He denies recalling rubbing up against any leaves or plants. He does have a dog at home, that occasionally sleeps in his chair. He did get a used chair that he has been using for the last few weeks, and is uncertain if there were bedbugs or fleas on this. He has no other complaints at this time. No rash anywhere else. No other modifying factors. Related Data Home Medications ?Medication ?Instructions ?Recorded ?Confirmed calcium carbonate (Tums) 2,000 mg PO BID 02/02/23 03/03/25 methadone 10 mg/5 mL oral solution 100 mg PO QAM 06/12/23 03/03/25 prochlorperazine maleate 5 mg 5 mg PO TID PRN acute nausea #30 09/06/23 03/03/25 tablet tabs gabapentin 300 mg capsule 300 mg PO BID #180 caps 06/01/24 03/03/25 calcitriol 0.5 mcg capsule 1 mcg (2 x 0.5 mcg) PO .COMPLEX 06/29/24 03/03/25 #270 caps omeprazole 40 mg capsule,delayed 40 mg PO DAILY #90 caps 07/27/24 03/03/25 release polyethylene glycol 3350 17 gram 17 g PO BID PRN 10/15/24 03/03/25 oral powder packet lorazepam 1 mg tablet 1 mg PO DAILY PRN anxiety #10 tabs 10/19/24 03/03/25 cyclobenzaprine 10 mg tablet 10 mg PO TID PRN muscle spasm #30 11/16/24 03/03/25 tabs magnesium gluconate 27 mg 500 mg PO BID 01/30/25 03/03/25 magnesium (500 mg) tablet diclofenac sodium 1 % topical gel 2 g topical QID #50 grams 02/03/25 03/03/25 clonazepam 1 mg tablet 1 mg PO BID #10 tabs 02/08/25 03/03/25 oxycodone 10 mg tablet 10 mg PO Q6H PRN #14 tabs 02/23/25 03/03/25 apixaban 5 mg tablet (Eliquis) 5 mg PO BID 03/03/25 03/03/25 Previous Rx's ?Medication ?Instructions ?Recorded prochlorperazine maleate 5 mg 5 mg PO TID PRN acute nausea #30 09/06/23 tablet tabs gabapentin 300 mg capsule 300 mg PO BID #180 caps 06/01/24 calcitriol 0.5 mcg capsule 1 mcg (2 x 0.5 mcg) PO .COMPLEX 06/29/24 #270 caps omeprazole 40 mg capsule,delayed 40 mg PO DAILY #90 caps 07/27/24 release lorazepam 1 mg tablet 1 mg PO DAILY PRN anxiety #10 tabs 10/19/24 cyclobenzaprine 10 mg tablet 10 mg PO TID PRN muscle spasm #30 11/16/24 tabs diclofenac sodium 1 % topical gel 2 g topical QID #50 grams 02/03/25 clonazepam 1 mg tablet 1 mg PO BID #10 tabs 02/08/25 oxycodone 10 mg tablet 10 mg PO Q6H PRN #14 tabs 02/23/25 Allergies Allergy/AdvReac Type Severity Reaction Status Date / Time codeine Allergy Intermediate pass out Verified 03/03/25 10:23 Penicillins Allergy Skin Rash Verified 03/03/25 10:23 marijuana (cannabis) AdvReac Severe Paranoia Verified 03/03/25 10:23 amoxicillin AdvReac Intermediate Nausea Verified 03/03/25 10:23 dextromethorphan (From AdvReac Intermediate got Verified 03/03/25 10:23 NyQuil) really hot and sweaty doxylamine (From NyQuil) AdvReac Intermediate got Verified 03/03/25 10:23 really hot and sweaty pseudoephedrine (From NyQuil) AdvReac Intermediate got Verified 03/03/25 10:23 really hot and sweaty General Stated Complaint: RashLesion ADRIANA: 4 Exam Narrative Exam Narrative: 1.Const: Well-nourished, Well-developed, appearing stated age 2.Eyes: PERRL, no conjunctival injection, and symmetrical lids. 3.ENT: Atraumatic external nose and ears. Moist MM. Neck: Symmetric, trachea midline, No thyromegaly. 4.CVS: +S1/S2, Peripheral pulses 2+ and equal in all extremities. Brisk capillary refill in all extremities. 5.RESP: Unlabored respiratory effort. Clear to auscultation bilaterally. No wheezes rales or rhonchi 6.GI: Soft, Nontender/Nondistended, No hepatosplenomegaly. No guarding or rebound. 7.MSK: Normocephalic/Atraumatic, Extremities w/o deformity or ttp No cyanosis or clubbing, Normal movement of all extremities 8.Skin: Warm, Dry. On the patient's right lower extremity there are 2 locations of mild rash. Just below the knee on the anterior aspect there is a erythematous irregularly bordered well-demarcated blanchable hive like reaction, and on the medial/posterior aspect at the same level there are 2 circular but slightly irregularly bordered well-demarcated raised hive/bite like locations. Negative Nikolsky sign. No large vesicles or bulla. No palpable purpura. No oral lesions. No mucosal lesions. No evidence of severe cellulitis. No evidence of vaccine preventable rash. No other evidence of any other rash throughout the rest of the body. 9.Neuro: supervisor cereal II-XII grossly intact. Sensation grossly intact, no focal neurologic deficits. 10.Psych: (AAO) x3. Appropriate mood and affect Course Vital Signs Vital signs: Vital Signs Temperature 36.8 C 03/03/25 10:20 Pulse 100 H 03/03/25 10:20 Respiratory Rate 20 03/03/25 10:20 Blood Pressure 113/77 03/03/25 10:20 Pulse Oximetry 95 03/03/25 10:20 Temperature 36.8 C 03/03/25 10:20 Pulse 100 H 03/03/25 10:20 Respiratory Rate 20 03/03/25 10:20 Blood Pressure 113/77 03/03/25 10:20 Pulse Oximetry 95 03/03/25 10:20 Medical Decision Making This is a 29-year-old male with a past medical history significant for anxiety, depression, high cholesterol, men type I, multiple electrolyte abnormalities with [place] [facility] [place], GERD, cholecystectomy 12/07, bilateral pulmonary embolisms with left-sided pulmonary infarct (diagnosed 02/2025) now on apixaban presents today for evaluation of rash. Patient has been wearing tags stockings since being diagnosed with the pulmonary embolism. He noticed 48 hours ago 3 little bite tavera on the right lower extremity just below the knee. They were itchy only if they were scratched. The next morning he woke up with 2 little tavera on the medial aspect of his leg just below the knee, and the redness for the anterior original ones became more pronounced. Symptoms persisted to today. Slightly itchy. No fever or chills. All lesions are just proximal to where his stockings and. He denies any change in medications. He denies recalling rubbing up against any leaves or plants. He does have a dog at home, that occasionally sleeps in his chair. He did get a used chair that he has been using for the last few weeks, and is uncertain if there were bedbugs or fleas on this. He has no other complaints at this time. No rash anywhere else. No other modifying factors. On the patient's right lower extremity there are 2 locations of mild rash. Just below the knee on the anterior aspect there is a erythematous irregularly bordered well-demarcated blanchable hive like reaction, and on the medial/posterior aspect at the same level there are 2 circular but slightly irregularly bordered well-demarcated raised hive/bite like locations. Negative Nikolsky sign. No large vesicles or bulla. No palpable purpura. No oral lesions. No mucosal lesions. No evidence of severe cellulitis. No evidence of vaccine preventable rash. No other evidence of any other rash throughout the rest of the body. Symptoms appear consistent with mild hive-like reaction or contact dermatitis. Symptoms. Inconsistent with vasculitis, petechiae, or other rash that 1 might suspect to be secondary to anticoagulant use. No current clinical evidence of staph scalded skin syndrome, erythema multiforme, erythema migrans, toxic epidermal necrolysis, Obando-Calos syndrome, Kawasaki-like rash, meningococcemia, pemphigus vulgaris, or necrotizing fasciitis. Will recommend Benadryl, loratadine, and [id number]-[id number]-[id number] steroid ointment. Recommend close monitoring of the rash, and prompt return if symptoms worse. Recommend evaluating his chairs and beds for fleas ticks or bedbugs. Recommend using flea and tick medicine on his dog. Discussed red flags for which to return. I have extensively reviewed the treatment plan and discharge instructions with the patient. I have addressed all patient concerns at this time. The patient was made aware of what symptoms to monitor for that would warrant a return to the emergency department. Discussed the plan with the patient, they demonstrate verbal understanding and agreement with our assessment and plan at this time. The documentation in this chart was dictated using [employer] dictation software. Please excuse any dictation errors. Quality:SDOH Health Related Social Needs: Health related social needs daily activities PFSH All Active Problems (Updated 03/03/25 @ 10:46 by Richy Eagle DO) Rash (Acute) Shortness of breath (Acute) Edema, peripheral (Acute) Anxiety (Chronic) Chest discomfort (Acute) Pulmonary embolism and infarction (Acute) Left pulmonary infiltrate on CXR (Acute) Bilateral pulmonary embolism (Acute) Tenderness of neck (Acute) Right elbow pain (Acute) Acute leg pain (Acute) Bronchitis (Acute) Well adult health check (Acute) Obstructive sleep apnea (Chronic) Metabolic dysfunction-associated fatty liver disease (MAFLD) (Acute) Fatty liver (Acute) IBS (irritable bowel syndrome) (Chronic) Obesity (Chronic) Migraine with aura (Acute) Testicle lump (Acute) Pes anserine bursitis (Acute) Left-sided Flower's palsy (Acute) Opiate dependence, continuous (Acute) 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 Possible 2' Methadone, Clnzpm (?). Surg eval (+)/No further action. History of electrolyte imbalance (Acute) Neck pain on left side (Acute) with shoulder, upper back pain.. torticollis, radiating into left hip/leg Pulmonary nodule 1 cm or greater in diameter (Chronic) Therapeutic opioid induced constipation (Acute) Sphincter of Oddi dysfunction (Chronic) Abnormal CT scan, kidney (Acute) Intrahepatic bile duct dilation (Acute) Common bile duct dilatation (Chronic) Has been dilated for quite some time, now more-so. Normal LFTs. Known gallstones. Depression (Chronic) Elevated parathyroid hormone (Acute) Family history of coronary arteriosclerosis (Chronic) Father of KS at 50, mother had KS at 42 Severe anxiety with panic (Chronic) Medical History Multiple endocrine neoplasia type I CKD (chronic kidney disease) stage 2, GFR 60-89 ml/min GFR 64-65, with Hx FLORESITA and GFR < 45 Primary hyperparathyroidism Complex medical condition Serious electrolyte imbalances, with gynecomastia, possible MEN Dx, CKD and anemia with baseline anxiety and Hx PTSD. Hypocalcemia Anxiety Depression Hyperlipidemia Family history of multiple endocrine neoplasia, type 1 PTSD (post-traumatic stress disorder) Per pt. states no triggers at this time. Surgical History History of laparoscopic cholecystectomy (~11/2023) H/O parathyroidectomy Family History Mother Anxiety Asthma Depression Sister Anxiety Depression Father Cancer lung & stomach Depression Diabetes Hypertension MEN 1 (multiple endocrine neoplasia) Social History Smoking/Tobacco Use Status: Never Smoking risk assessment performed?: Yes Alcohol Intake: never Drug use: Current Sobriety Substance use type: former substance user, crack/cocaine, heroin and painkillers Details: stopped using substances for the past 4 years Adopted: No Caregiver/Support person: No Foster care: No Household members: none Housing: apartment Number of Children: 0 Communication Needs: None Education Level: high school Do you need help understanding health information?: Never current occupation: [employer] Pets and animals: Yes (Ally) Pets and animals: dog(s) Sexually active: No Do you think of yourself as: straight/heterosexual Current gender identity: male What is your relationship status?: How often do you talk on the phone with friends or family?: twice per week How often do you get together with friends or relatives?: never Do you belong to any clubs or organized social groups?: no Panel score (0-1 are the most socially isolated patients): 0 What type of physical activity do you participate in: walking Duration: 15-30 minutes/day Frequency: 5-6 times per week Maryam/Druze: Gnosticist Special maryam needs: No Seatbelt use: always Helmet use: Yes Helmet use: always Drive intox or ride w/intox 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
[2025-03-03] MEDS: Loratidine 10 MG TAB PO (10:50)
[2025-03-03] MEDS: diphenhydrAMINE 25 MG CAP PO (10:50)
== END 2025-03-03 10:56 | disposition home or self-care (01) ==
PROVIDERS: Emergency Provider Student in an Organized Health Care Education/Training Program; PCP Physician Assistant
DX: R21 Rash and other nonspecific skin eruption (principal)
CPT/HCPCS: 99283 ×2

== ENCOUNTER 2025-03-03 15:13 | Emergency (ER) | payer OTHER, SELFPAY ==
--- NOTE | 2025-03-03 15:15 | DI.RAD_ITS ---
Exam(s) XR ANKLE LT COMPLETE EXAM: XR ANKLE LT COMPLETE CLINICAL HISTORY: left lateral ankle pain. TECHNIQUE: 2D digital imaging was performed. COMPARISON: CR XR ANKLE LT COMPLETE from 11/18/2024 FINDINGS: 3 views There is soft tissue swelling on both sides the ankle but no evidence of fracture or widening of the ankle mortise. Talar dome appears unremarkable.h bone density normal. No degenerative changes. No evidence of osseous tarsal coalition. IMPRESSION: Soft tissue swelling but no acute ankle fractures evident. DATA REPOSITORY: RADIATION DOSE DELIVERED:
[2025-03-03 15:19] VITALS: BP 129/80; PULSE 98; RESP 20; TEMP 36.6; O2SAT 98
--- NOTE | 2025-03-03 15:48 | W.ED.GENAD ---
Discharge Plan Disposition Patient Disposition: Home Condition: Good Discharge Details Clinical Impression: Left ankle sprain Primary Care Provider: Sanjana Pritchett ED Provider: Richy Eagle Home Meds and New Rx's Prescriptions: No Action gabapentin 300 mg capsule 300 mg PO BID Qty: 180 3RF omeprazole 40 mg capsule,delayed release(DR/EC) 40 mg PO DAILY Qty: 90 3RF lorazepam 1 mg tablet 1 mg PO DAILY PRN (Reason: anxiety) Qty: 10 0RF Rx Instructions: Use when considering ER visit cyclobenzaprine 10 mg tablet 10 mg PO TID PRN (Reason: muscle spasm) Qty: 30 3RF methadone 10 mg/5 mL solution 100 mg PO QAM calcitriol 0.5 mcg capsule 1 mcg PO .COMPLEX Qty: 270 3RF Rx Instructions: 1 mcg orally t2 tabs qam and 1 tab QHS; clonazepam 1 mg tablet 1 mg PO BID Qty: 10 0RF calcium carbonate [Tums] 200 mg calcium (500 mg) tablet,chewable 2,000 mg PO BID prochlorperazine maleate 5 mg tablet 5 mg PO TID PRN (Reason: acute nausea) Qty: 30 0RF polyethylene glycol 3350 17 gram powder in packet 17 g PO BID PRN magnesium gluconate 27 mg magnesium (500 mg) tablet 500 mg PO BID Rx Instructions: takes 500mg QAM and 1000mg QHS diclofenac sodium 1 % gel 2 g topical QID Qty: 50 0RF Rx Instructions: apply to single elbow, wrist or hand; for hand includes palm/fingers/back of hand Eliquis 5 mg tablet 5 mg PO BID Patient Comments: TAKE TWO TABLETS BY MOUTH TWICE A DAY FOR 7 DAYS oxycodone 10 mg tablet 10 mg PO Q6H PRNQty: 14 0RF Discharge Instructions Instructions: Ankle Sprain ED Additional Instructions: At this time your x-ray shows no evidence of fracture. You have sprained your ankle. Please ice the ankle frequently. Take Tylenol as needed for pain. Use the walking boot for the next 1 week to help with support of your ankle. If you notice any worsening of your symptoms, or any new symptoms such as vomiting, diarrhea, fever, chills, shortness of breath, chest pain, numbness, weakness, or fainting , please return immediately to the emergency department for reevaluation. Please follow up with your primary care provider as soon as possible for reassessment and reevaluation. As always, it was a pleasure participating in your medical care today. Referrals: Sanjana Pritchett [Primary Care Provider, Medicine] HPI General Date/Time Provider Initiated Documentation: 03/03/25 15:28. HPI Narrative: This is a 29-year-old male with a past medical history significant for anxiety, depression, high cholesterol, men type I, multiple electrolyte abnormalities with subsequent [place]athyroidectomy on 03/26/2022 at [facility] [place], PTSD, GERD, cholecystectomy 12/07, bilateral pulmonary embolisms with left-sided pulmonary infarct (diagnosed 02/2025) now on apixaban presents today for evaluation of left ankle pain. Patient was here in the emergency department for rash, left and went home, and then while taking his trash out he fell on the last 3 steps of his staircase, rolled his right ankle and fell on the ground. He denies any significant trauma to the head or the rest of his body aside from mild soreness, but he does admit to notable pain and tenderness in his left ankle. He feels that he inverted his left ankle. [facility] for [facility] assessment. Patient admits to pain with weightbearing on the lateral aspect of his ankle as well as the posterior component. He denies any numbness or tingling. No loss of consciousness. No headache or neck pain. No other complaints at this time. Related Data Home Medications ?Medication ?Instructions ?Recorded ?Confirmed calcium carbonate (Tums) 2,000 mg PO BID 02/02/23 03/03/25 methadone 10 mg/5 mL oral solution 100 mg PO QAM 06/12/23 03/03/25 prochlorperazine maleate 5 mg 5 mg PO TID PRN acute nausea #30 09/06/23 03/03/25 tablet tabs gabapentin 300 mg capsule 300 mg PO BID #180 caps 06/01/24 03/03/25 calcitriol 0.5 mcg capsule 1 mcg (2 x 0.5 mcg) PO .COMPLEX 06/29/24 03/03/25 #270 caps omeprazole 40 mg capsule,delayed 40 mg PO DAILY #90 caps 07/27/24 03/03/25 release polyethylene glycol 3350 17 gram 17 g PO BID PRN 10/15/24 03/03/25 oral powder packet lorazepam 1 mg tablet 1 mg PO DAILY PRN anxiety #10 tabs 10/19/24 03/03/25 cyclobenzaprine 10 mg tablet 10 mg PO TID PRN muscle spasm #30 11/16/24 03/03/25 tabs magnesium gluconate 27 mg 500 mg PO BID 01/30/25 03/03/25 magnesium (500 mg) tablet diclofenac sodium 1 % topical gel 2 g topical QID #50 grams 02/03/25 03/03/25 clonazepam 1 mg tablet 1 mg PO BID #10 tabs 02/08/25 03/03/25 oxycodone 10 mg tablet 10 mg PO Q6H PRN #14 tabs 02/23/25 03/03/25 apixaban 5 mg tablet (Eliquis) 5 mg PO BID 03/03/25 03/03/25 Previous Rx's ?Medication ?Instructions ?Recorded prochlorperazine maleate 5 mg 5 mg PO TID PRN acute nausea #30 09/06/23 tablet tabs gabapentin 300 mg capsule 300 mg PO BID #180 caps 06/01/24 calcitriol 0.5 mcg capsule 1 mcg (2 x 0.5 mcg) PO .COMPLEX 06/29/24 #270 caps omeprazole 40 mg capsule,delayed 40 mg PO DAILY #90 caps 07/27/24 release lorazepam 1 mg tablet 1 mg PO DAILY PRN anxiety #10 tabs 10/19/24 cyclobenzaprine 10 mg tablet 10 mg PO TID PRN muscle spasm #30 11/16/24 tabs diclofenac sodium 1 % topical gel 2 g topical QID #50 grams 02/03/25 clonazepam 1 mg tablet 1 mg PO BID #10 tabs 02/08/25 oxycodone 10 mg tablet 10 mg PO Q6H PRN #14 tabs 02/23/25 Allergies Allergy/AdvReac Type Severity Reaction Status Date / Time codeine Allergy Intermediate pass out Verified 03/03/25 15:21 Penicillins Allergy Skin Rash Verified 03/03/25 15:21 marijuana (cannabis) AdvReac Severe Paranoia Verified 03/03/25 15:21 amoxicillin AdvReac Intermediate Nausea Verified 03/03/25 15:21 dextromethorphan (From AdvReac Intermediate got Verified 03/03/25 15:21 NyQuil) really hot and sweaty doxylamine (From NyQuil) AdvReac Intermediate got Verified 03/03/25 15:21 really hot and sweaty pseudoephedrine (From NyQuil) AdvReac Intermediate got Verified 03/03/25 15:21 really hot and sweaty General Stated Complaint: Orthopedic ADRIAAN: 3 Exam Narrative Exam Narrative: 1.Const: Well-nourished, Well-developed, appearing stated age 2.Eyes: PERRL, no conjunctival injection, and symmetrical lids. 3.ENT: Atraumatic external nose and ears. Moist MM. Neck: Symmetric, trachea midline, No thyromegaly. There is no evidence of raccoon eyes, anthony sign, CSF rhinorrhea, mastoid tenderness, cranial crepitus, hemotympanum, exophthalmos, or hyphema. Patient demonstrates intact dentition with no signs of tooth avulsion or fracture, no signs of jaw deformity, no evidence of a LeFort's fracture, with an intact palate, nose and orbital region. There is no evidence of a nasal septal hematoma. No proptosis. Jaw closes symmetrically. Airway is clear. 4.CVS: +S1/S2, Peripheral pulses 2+ and equal in all extremities. Brisk capillary refill in all extremities. 5.RESP: Unlabored respiratory effort. Clear to auscultation bilaterally. No wheezes rales or rhonchi 6.GI: Soft, Nontender/Nondistended, No hepatosplenomegaly. No guarding or rebound. 7.MSK: No significant trauma or tenderness over the chest abdomen pelvis or upper extremities. Patient's left ankle does demonstrate an abrasion mild swelling of the lateral malleolus of the ankle. Mild tenderness in that area as well. Negative Homans' sign. Normal flexion and extension of the ankle. Normal pulses and intact sensation. No midline tenderness to palpation over the CTLS spine. Normal ROM in flexion, extension, side bend, and rotation. Patient has +5 out of 5 strength in the lower extremities in dorsiflexion and plantarflexion, knee flexion and extension, hip flexion and extension. Normal strength for dorsiflexion and plantar flexion of the great toe bilaterally. There is +2 over 2 dorsalis pedis pulses bilaterally. There is normal sensation to the skin with light touch at the foot, knee, and hip. Normal saddle sensation. Good sensation over the deep sural nerve area bilaterally. +5 out of 5 strength in the medial, ulnar, radial nerve distribution bilaterally in the hands as well as intact light touch sensation to these dermatomes on the hands 8.Skin: Warm, Dry. No rashes or lesions. 9.Neuro: puncher and fastener II-XII grossly intact. Sensation grossly intact, no focal neurologic deficits. 10.Psych: (AAO) x3. Appropriate mood and affect Course Vital Signs Vital signs: Vital Signs Temperature 36.6 C 03/03/25 15:19 Pulse 98 H 03/03/25 15:19 Respiratory Rate 20 03/03/25 15:19 Blood Pressure 129/80 03/03/25 15:19 Pulse Oximetry 98 03/03/25 15:19 Temperature 36.6 C 03/03/25 15:19 Pulse 98 H 03/03/25 15:19 Respiratory Rate 20 03/03/25 15:19 Blood Pressure 129/80 03/03/25 15:19 Pulse Oximetry 98 03/03/25 15:19 Medical Decision Making This is a 29-year-old male with a past medical history significant for anxiety, depression, high cholesterol, men type I, multiple electrolyte abnormalities with subsequent parathyroidectomy on 03/26/2022 at [facility] [place], PTSD, GERD, cholecystectomy 12/07, bilateral pulmonary embolisms with left-sided pulmonary infarct (diagnosed 02/2025) now on apixaban presents today for evaluation of left ankle pain. Patient was here in the emergency department for rash, left and went home, and then while taking his trash out he fell on the last 3 steps of his staircase, rolled his right ankle and fell on the ground. He denies any significant trauma to the head or the rest of his body aside from mild soreness, but he does admit to notable pain and tenderness in his left ankle. He feels that he inverted his left ankle. [facility] for further assessment. Patient admits to pain with weightbearing on the lateral aspect of his ankle as well as the posterior component. He denies any numbness or tingling. No loss of consciousness. No headache or neck pain. No other complaints at this time. patient's left ankle does demonstrate an abrasion mild swelling of the lateral malleolus of the ankle. Mild tenderness in that area as well. Negative Homans' sign. Normal flexion and extension of the ankle. Normal pulses and intact sensation. Concern for fracture versus contusion. Will get x-ray, give Tylenol monitor closely and reassess. X-ray negative for acute process. Will recommend Voltaren gel and Tylenol. Ankle walking boot was given. I have extensively reviewed the treatment plan and discharge instructions with the patient. I have addressed all patient concerns at this time. The patient was made aware of what symptoms to monitor for that would warrant a return to the emergency department. Discussed the plan with the patient, they demonstrate verbal understanding and agreement with our assessment and plan at this time. The documentation in this chart was dictated using [employer] dictation software. Please excuse any dictation errors. FINDINGS: 3 views There is soft tissue swelling on both sides the ankle but no evidence of fracture or widening of the ankle mortise. Talar dome appears unremarkable.h bone density normal. No degenerative changes. No evidence of osseous tarsal coalition. IMPRESSION: Soft tissue swelling but no acute ankle fractures evident. Quality:SDOH Health Related Social Needs: Health related social needs daily activities PFSH All Active Problems (Updated 03/03/25 @ 16:16 by Richy Eagle DO) Left ankle sprain (Acute) Rash (Acute) Shortness of breath (Acute) Edema, peripheral (Acute) Anxiety (Chronic) Chest discomfort (Acute) Pulmonary embolism and infarction (Acute) Left pulmonary infiltrate on CXR (Acute) Bilateral pulmonary embolism (Acute) Tenderness of neck (Acute) Right elbow pain (Acute) Acute leg pain (Acute) Bronchitis (Acute) Well adult health check (Acute) Obstructive sleep apnea (Chronic) Metabolic dysfunction-associated fatty liver disease (MAFLD) (Acute) Fatty liver (Acute) IBS (irritable bowel syndrome) (Chronic) Obesity (Chronic) Migraine with aura (Acute) Testicle lump (Acute) Pes anserine bursitis (Acute) Left-sided Flower's palsy (Acute) Opiate dependence, continuous (Acute) 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 Possible 2' Methadone, Clnzpm (?). Surg eval (+)/No further action. History of electrolyte imbalance (Acute) Neck pain on left side (Acute) with shoulder, upper back pain.. torticollis, radiating into left hip/leg Pulmonary nodule 1 cm or greater in diameter (Chronic) Therapeutic opioid induced constipation (Acute) Sphincter of Oddi dysfunction (Chronic) Abnormal CT scan, kidney (Acute) Intrahepatic bile duct dilation (Acute) Common bile duct dilatation (Chronic) Has been dilated for quite some time, now more-so. Normal LFTs. Known gallstones. Depression (Chronic) Elevated parathyroid hormone (Acute) Family history of coronary arteriosclerosis (Chronic) Father of [place] at 50, mother had [place] at 42 Severe anxiety with panic (Chronic) Medical History Multiple endocrine neoplasia type I CKD (chronic kidney disease) stage 2, GFR 60-89 ml/min GFR 64-65, with Hx FLORESITA and GFR < 45 Primary hyperparathyroidism Complex medical condition Serious electrolyte imbalances, with gynecomastia, possible MEN Dx, CKD and anemia with baseline anxiety and Hx PTSD. Hypocalcemia Anxiety Depression Hyperlipidemia Family history of multiple endocrine neoplasia, type 1 PTSD (post-traumatic stress disorder) Per pt. states no triggers at this time. Surgical History History of laparoscopic cholecystectomy (~11/2023) H/O parathyroidectomy Family History Mother Anxiety Asthma Depression Sister Anxiety Depression Father Cancer lung & stomach Depression Diabetes Hypertension MEN 1 (multiple endocrine neoplasia) Social History Smoking/Tobacco Use Status: Never Smoking risk assessment performed?: Yes Alcohol Intake: never Drug use: Current Sobriety Substance use type: former substance user, crack/cocaine, heroin and painkillers Details: stopped using substances for the past 4 years Adopted: No Caregiver/Support person: No Foster care: No Household members: none Housing: apartment Number of Children: 0 Communication Needs: None Education Level: high school Do you need help understanding health information?: Never current occupation: [employer] Pets and animals: Yes (Ally) Pets and animals: dog(s) Sexually active: No Do you think of yourself as: straight/heterosexual Current gender identity: male What is your relationship status?: How often do you talk on the phone with friends or family?: twice per week How often do you get together with friends or relatives?: never Do you belong to any clubs or organized social groups?: no Panel score (0-1 are the most socially isolated patients): 0 What type of physical activity do you participate in: walking Duration: 15-30 minutes/day Frequency: 5-6 times per week Maryam/Yazdanism: Islam Special maryam needs: No Seatbelt use: always Helmet use: Yes Helmet use: always 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
[2025-03-03] MEDS: Acetaminophen 500 MG TAB 1000 MG PO (16:28)
== END 2025-03-03 16:44 | disposition home or self-care (01) ==
PROVIDERS: Emergency Provider Student in an Organized Health Care Education/Training Program; PCP Physician Assistant
DX: S93.402A Sprain of unspecified ligament of left ankle, initial encounter (principal); E89.2 Postprocedural hypoparathyroidism; E78.5 Hyperlipidemia, unspecified; N18.2 Chronic kidney disease, stage 2 (mild); Z86.711 Personal history of pulmonary embolism; Z79.01 Long term (current) use of anticoagulants; W10.8XXA Fall (on) (from) other stairs and steps, initial encounter; Y93.01 Activity, walking, marching and hiking; Y92.018 Other place in single-family (private) house as the place of occurrence of the external cause
CPT/HCPCS: 99283; 73610

== ENCOUNTER 2025-03-04 10:08 | Emergency (ER) | payer OTHER, SELFPAY ==
[2025-03-04] VITALS (15 sets, daily range): BP systolic 102–125; BP diastolic 57–72; PULSE 90–122; RESP 9–29; TEMP 36.7; O2SAT 92–98
--- NOTE | 2025-03-04 10:37 | W.ED.GENAD ---
Discharge Plan Disposition Patient Disposition: Home Condition: Stable Discharge Details Clinical Impression: Bloody sputum Primary Care Provider: Sanjana Pritchett ED Provider: Antoinette Templeton Home Meds and New Rx's Prescriptions: Continued gabapentin 300 mg capsule 300 mg PO BID Qty: 180 3RF omeprazole 40 mg capsule,delayed release(DR/EC) 40 mg PO DAILY Qty: 90 3RF lorazepam 1 mg tablet 1 mg PO DAILY PRN (Reason: anxiety) Qty: 10 0RF Rx Instructions: Use when considering ER visit cyclobenzaprine 10 mg tablet 10 mg PO TID PRN (Reason: muscle spasm) Qty: 30 3RF methadone 10 mg/5 mL solution 100 mg PO QAM calcitriol 0.5 mcg capsule 1 mcg PO .COMPLEX Qty: 270 3RF Rx Instructions: 1 mcg orally t2 tabs qam and 1 tab QHS; clonazepam 1 mg tablet 1 mg PO BID Qty: 10 0RF calcium carbonate [Tums] 200 mg calcium (500 mg) tablet,chewable 2,000 mg PO BID prochlorperazine maleate 5 mg tablet 5 mg PO TID PRN (Reason: acute nausea) Qty: 30 0RF polyethylene glycol 3350 17 gram powder in packet 17 g PO BID PRN magnesium gluconate 27 mg magnesium (500 mg) tablet 500 mg PO BID Rx Instructions: takes 500mg QAM and 1000mg QHS diclofenac sodium 1 % gel 2 g topical QID Qty: 50 0RF Rx Instructions: apply to single elbow, wrist or hand; for hand includes palm/fingers/back of hand Eliquis 5 mg tablet 5 mg PO BID Patient Comments: TAKE TWO TABLETS BY MOUTH TWICE A DAY FOR 7 DAYS oxycodone 10 mg tablet 10 mg PO Q6H PRNQty: 14 0RF Discharge Instructions Instructions: Coughing up blood, Cough, Adult ED Additional Instructions: At this time the CT does not show any worsening of the pulmonary embolism, no worsening abnormality. The lab work shows no evidence of significant or emergent bleeding. I do suspect that this could be from irritation in your throat which is causing the small vessels to bleed slightly since you are now on the blood thinner. However, please continue taking the Eliquis, follow-up with your primary care provider. You may use an Mylanta or similar [id number] for continued irritation. You may also gargle with warm salt water 3 times daily as needed. Please wear your walking boot as previously instructed. Follow up with primary care provider in 3-5 days. Referrals: Sanjana Pritchett [Primary Care Provider, Medicine] - 5 days Referral Note: ER follow up PE's, Bloody sputum, call for an appointment Clinical Impression: Bloody sputum HPI General Mode of arrival: ambulatory. Date/Time Provider Initiated Documentation: 03/04/25 10:21. Limitations to Documentation: no limitations. Information obtained by: patient, RN notes reviewed and old records reviewed. HPI Narrative: 29-year-old male presents to the ER with a chief complaint of hemoptysis which began this morning. He states that he was trying to clear his throat and coughed up blood-tinged phlegm. He reports that this is only been 1 occurrence. He was recently diagnosed with bilateral PEs and observed overnight approximately a week ago. He has been taking Eliquis he is down to 5 mg twice daily, he also reports that 24 hrs he fell down approximately 4 stairs twisting his left ankle. He also states he did tumble and fall to the ground, denies any chest pain palpitations he is reporting anxiety. He is reporting also mild shortness of breath. Does have a past medical history of multiple endocrine neoplasia type I, depression hyperlipidemia, PTSD, hypocalcemia, hyper para thyroiditis, chronic kidney disease parathyroidectomy and cholecystectomy. Patient has been seen here multiple times in the last week and is well-known to the department. He is alert and oriented x 4 pleasant and conversive. Related Data Home Medications ?Medication ?Instructions ?Recorded ?Confirmed calcium carbonate (Tums) 2,000 mg PO BID 02/02/23 03/04/25 methadone 10 mg/5 mL oral solution 100 mg PO QAM 06/12/23 03/04/25 prochlorperazine maleate 5 mg 5 mg PO TID PRN acute nausea #30 09/06/23 03/04/25 tablet tabs gabapentin 300 mg capsule 300 mg PO BID #180 caps 06/01/24 03/04/25 calcitriol 0.5 mcg capsule 1 mcg (2 x 0.5 mcg) PO .COMPLEX 06/29/24 03/04/25 #270 caps omeprazole 40 mg capsule,delayed 40 mg PO DAILY #90 caps 07/27/24 03/04/25 release polyethylene glycol 3350 17 gram 17 g PO BID PRN 10/15/24 03/04/25 oral powder packet lorazepam 1 mg tablet 1 mg PO DAILY PRN anxiety #10 tabs 10/19/24 03/04/25 cyclobenzaprine 10 mg tablet 10 mg PO TID PRN muscle spasm #30 11/16/24 03/04/25 tabs magnesium gluconate 27 mg 500 mg PO BID 01/30/25 03/04/25 magnesium (500 mg) tablet diclofenac sodium 1 % topical gel 2 g topical QID #50 grams 02/03/25 03/04/25 clonazepam 1 mg tablet 1 mg PO BID #10 tabs 02/08/25 03/04/25 oxycodone 10 mg tablet 10 mg PO Q6H PRN #14 tabs 02/23/25 03/04/25 apixaban 5 mg tablet (Eliquis) 5 mg PO BID 03/03/25 03/04/25 Previous Rx's ?Medication ?Instructions ?Recorded prochlorperazine maleate 5 mg 5 mg PO TID PRN acute nausea #30 09/06/23 tablet tabs gabapentin 300 mg capsule 300 mg PO BID #180 caps 06/01/24 calcitriol 0.5 mcg capsule 1 mcg (2 x 0.5 mcg) PO .COMPLEX 06/29/24 #270 caps omeprazole 40 mg capsule,delayed 40 mg PO DAILY #90 caps 07/27/24 release lorazepam 1 mg tablet 1 mg PO DAILY PRN anxiety #10 tabs 10/19/24 cyclobenzaprine 10 mg tablet 10 mg PO TID PRN muscle spasm #30 11/16/24 tabs diclofenac sodium 1 % topical gel 2 g topical QID #50 grams 02/03/25 clonazepam 1 mg tablet 1 mg PO BID #10 tabs 02/08/25 oxycodone 10 mg tablet 10 mg PO Q6H PRN #14 tabs 02/23/25 Allergies Allergy/AdvReac Type Severity Reaction Status Date / Time codeine Allergy Intermediate pass out Verified 03/04/25 10:14 Penicillins Allergy Skin Rash Verified 03/04/25 10:14 marijuana (cannabis) AdvReac Severe Paranoia Verified 03/04/25 10:14 amoxicillin AdvReac Intermediate Nausea Verified 03/04/25 10:14 dextromethorphan (From AdvReac Intermediate got Verified 03/04/25 10:14 NyQuil) really hot and sweaty doxylamine (From NyQuil) AdvReac Intermediate got Verified 03/04/25 10:14 really hot and sweaty pseudoephedrine (From NyQuil) AdvReac Intermediate got Verified 03/04/25 10:14 really hot and sweaty General Stated Complaint: GI Bleed ADRIANA: 3 Review of Systems All systems reviewed & are unremarkable except as noted in HPI and below Constitutional Constitutional: Denies snoring ENT Ears, Nose, Mouth, and Throat: Reports as per HPI, Denies bleeding gums, Denies dizziness, Reports dry mouth, Denies epistaxis, Denies mouth lesions and Reports other (Frequent clearing throat ) Cardiovascular Cardiovascular: Denies chest pain, Denies irregular heart rhythm, Reports palpitations (And is tachycardic with a rate of 122) and Reports dyspnea Respiratory Respiratory: Reports as per HPI, Denies chest congestion, Reports hemoptysis, Reports dyspnea, Denies snoring and Denies wheezing Gastrointestinal Gastrointestinal: Denies diarrhea, Denies nausea and Denies vomiting Neurologic Neurologic: Denies dizziness Endocrine Endocrine: Reports palpitations (And is tachycardic with a rate of 122) Allergic/Immunologic Allergic/Immunologic: Denies wheezing Exam Narrative Exam Narrative: Constitutional: Alert and oriented x3. Appears older than stated age. Obese body habitus. Head: Normocephalic, no trauma. Eyes: Pupils PERRL, Red reflex noted, EOM's intact. Eyelids symmetrical without lesions, discharge, or swelling. ENT: Bilateral TM's WNL, External ear normal to inspection, no mastoid TTP, swelling, or erythema, Nasal turbinates WNL, no nasal discharge. Posterior pharynx WNL, no exudate. Chest: Slightly tachycardic with a rate of 122, Normal S1, S2, distal pulses intact. Resp: Lungs clear to auscultation bilaterally, no wheezes, rales, or rhonchi. Abdomen: Soft, non-distended, Normoactive bowel sounds all 4 quads. Musculoskeletal: Normal gait, Moves all 4 extremities without difficulty. Patient is not wearing the walking boot to his left ankle, Skin: He does have what appear to be insect bites noted to his right lateral proximal calf and medial calf, no surrounding significant spread of erythema or induration, he reports that these are the same no worse they are pruritic, capillary refill less than 2 sec. Neurologic: Cranial nerves II-XII intact. Alert and oriented x 3. Motor: No deficits noted. Sensory: Intact bilaterally all 4 extremities. Hematologic/Lymphatic: No ecchymosis, no lymphadenopathy. Course Vital Signs Vital signs: Vital Signs Temperature 36.7 C 03/04/25 10:12 Pulse 122 H 03/04/25 10:12 Respiratory Rate 20 03/04/25 10:12 Blood Pressure 125/72 03/04/25 10:12 Pulse Oximetry 97 03/04/25 10:12 Temperature 36.7 C 03/04/25 10:12 Pulse 122 H 03/04/25 10:12 Respiratory Rate 20 03/04/25 10:12 Blood Pressure 125/72 03/04/25 10:12 Pulse Oximetry 97 03/04/25 10:12 Medical Decision Making 29-year-old male presents to the ER with a chief complaint of hemoptysis which began this morning. He states that he was trying to clear his throat and coughed up blood-tinged phlegm. He reports that this is only been 1 occurrence. He was recently diagnosed with bilateral PEs and observed overnight approximately a week ago. He has been taking Eliquis he is down to 5 mg twice daily, he also reports that 24 hrs he fell down approximately 4 stairs twisting his left ankle. He also states he did tumble and fall to the ground, denies any chest pain palpitations he is reporting anxiety. He is reporting also mild shortness of breath. Due to the recent diagnosis of PEs bilaterally, on Eliquis/apixaban and recent fall with no hemoptysis CT chest rule PE protocol imaging reordered to evaluate and make sure there is no increased PE burden or chest trauma along with CBC CMP PT PTT. Patient informed of plan of care and is in agreement with the plan and verbalized understanding. Labs are largely within normal limits, at patient's baseline hemoglobin 9.3 hematocrit 30, platelets 502 PT 10.8 INR 1.1, creatinine 1.6 GFR 58 sodium potassium within normal limits, alk phos is 152. CT exam shows decrease of the PE disease from previous exam no other abnormalities noted. Heart is noted to be at the upper limits of normal in size. Do suspect pharyngitis and anxiety. Patient is noted to be in the room frequently clearing his throat I did encourage him to stop doing this that this may irritate the back of his throat more because it to bleed slightly. He verbalized understanding. I did offer a GI cocktail which patient declined at this time. I did give him some p.o. fluid, some water which patient was tolerating well. Plan is to discharge patient home with close follow-up with PCP as previously discussed. Discussed at length patient discharge instructions, did discuss strict return instructions to return for any severe palpitations, chest pain severe coughing up blood, I did also instruct him to take [id number] Mylanta or liquid Carafate or similar. I do suspect that this is a posterior oropharynx irritation from his frequent throat clearing. He was observed clearing his throat multiple times in the department. He continues to be chest pain-free denies any abdominal pain. He has remained hemodynamically stable throughout the remainder of his stay. Heart rate has decreased to 93. I did encourage him to continue taking the Eliquis 5 mg twice daily as previously prescribed and close follow-up with his PCP he verbalized understanding. This text was generated using D[employer] In dictation system, please disregard any oddities of phrase or misspellings. Medical Records Medical records reviewed: Yes I reviewed the patient's medical records. Imaging Data Radiologic Study: Imaging: CT Scan Radiologist's impression: CR,XR XR CHEST 2V PA LATERAL from 03/01/2025 FINDINGS: Tracheobronchial tree: Patent where visualized. No bronchiectasis. Pulmonary parenchyma: There is poor inspiration there are faint ground-glass opacities throughout the lungs. No architectural distortion. Pulmonary Arteries: The pulmonary embolic load has decreased since the prior examination on 02/24/2025. There are however persistent filling defects seen in branches of the pulmonary arteries to the right upper lobe, left lower lobe and right lower lobe. Mediastinum and Jessika: No dominant adenopathy or fluid collection. The esophagus is unremarkable. Visualized thyroid gland: Unremarkable. Pleura: There is a persistent left small pleural effusion. No right pleural effusion. No pneumothorax is present. Heart: The heart is at the upper limits of normal in size. No coronary artery calcifications are seen. No pericardial effusion. The RV to LV ratio is 121. Aorta: Thoracic aorta non-dilated. No evidence of dissection. Upper abdomen: Status post cholecystectomy. Soft tissues: There is bilateral gynecomastia. Bones: Within normal limits for the patient's age.There are no displaced rib fractures. IMPRESSION: 1. The pulmonary embolic disease has decreased in extent compared to the prior examination from 02/24/2025. 2. Persistent small left pleural effusion. 3. Opacities in the lungs which likely are secondary to poor inspiration. There are no focal consolidating infiltrates present. Lab Data Lab results reviewed: Yes I reviewed the patient's lab results. Labs: Laboratory Tests Range/Units 03/04/25 11:07 WBC (4.4-10.8) 10^3/uL 8.32 RBC (4.36-5.78) 10^6/uL 3.56 L Hgb (13.5-17.5) g/dL 9.3 L Hct (40.0-50.0) % 30.0 L MCV (80-95) fL 84 MCH (27.0-33.0) pg 26.1 L MCHC (32.0-36.0) % 31.0 L RDW (11.8-14.1) % 16.7 H Plt Count (130-400) 10^3/uL 502 H MPV (8.0-11.0) fL 9.9 Immature Gran % % 0.5 Neutrophils % % 66.3 Lymphocytes % % 19.7 Monocytes % % 10.5 Eosinophils % % 2.6 Basophils % % 0.4 Nucleated RBC % (0.0-0.3) % 0.0 Absolute Neutrophils (1.2-6.7) 10^3/uL 5.52 Absolute Lymphocytes (1.2-3.4) 10^3/uL 1.64 Absolute Monocytes (0.1-0.8) 10^3/uL 0.87 H Absolute Eosinophils (0.0-0.7) 10^3/uL 0.22 Absolute Basophils (0.0-0.2) 10^3/uL 0.03 PT (9.1-11.1) sec 10.8 INR (0.9-1.1) 1.1 APTT (20.6-30.2) sec 29.3 Sodium (136-145) mmol/L 138 Potassium (3.5-5.1) mmol/L 3.9 Chloride (98-107) mmol/L 100 Carbon Dioxide (21.0-32.0) mmol/L 30.2 Anion Gap (3-11) mmol/L 7.8 BUN (7-18) mg/dL 15 Creatinine (0.70-1.30) mg/dL 1.6 H Est GFR (CKD-EPI 2020) (mL/min/1.73m2) 58.71 Glucose (74-106) mg/dL 113 H Calcium (8.5-10.1) mg/dL 8.8 Total Bilirubin (0.2-1.0) mg/dL 0.2 AST (15-37) U/L 18 ALT (16-63) U/L 25 Alkaline Phosphatase (46-116) U/L 152 H Total Protein (6.4-8.2) g/dL 8.3 H Albumin (3.4-5.0) g/dL 3.1 L Quality:SDOH Health Related Social Needs: Health related social needs daily activities PFSH All Active Problems (Updated 03/04/25 @ 12:51 by Antoinette Templeton NP) Bloody sputum (Acute) Left ankle sprain (Acute) Rash (Acute) Shortness of breath (Acute) Edema, peripheral (Acute) Anxiety (Chronic) Chest discomfort (Acute) Pulmonary embolism and infarction (Acute) Left pulmonary infiltrate on CXR (Acute) Bilateral pulmonary embolism (Acute) Tenderness of neck (Acute) Right elbow pain (Acute) Acute leg pain (Acute) Bronchitis (Acute) Well adult health check (Acute) Obstructive sleep apnea (Chronic) Metabolic dysfunction-associated fatty liver disease (MAFLD) (Acute) Fatty liver (Acute) IBS (irritable bowel syndrome) (Chronic) Obesity (Chronic) Migraine with aura (Acute) Testicle lump (Acute) Pes anserine bursitis (Acute) Left-sided Flower's palsy (Acute) Opiate dependence, continuous (Acute) 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 Possible 2' Methadone, Clnzpm (?). Surg eval (+)/No further action. History of electrolyte imbalance (Acute) Neck pain on left side (Acute) with shoulder, upper back pain.. torticollis, radiating into left hip/leg Pulmonary nodule 1 cm or greater in diameter (Chronic) Therapeutic opioid induced constipation (Acute) Sphincter of Oddi dysfunction (Chronic) Abnormal CT scan, kidney (Acute) Intrahepatic bile duct dilation (Acute) Common bile duct dilatation (Chronic) Has been dilated for quite some time, now more-so. Normal LFTs. Known gallstones. Depression (Chronic) Elevated parathyroid hormone (Acute) Family history of coronary arteriosclerosis (Chronic) Father of [place] at 50, mother had [place] at 42 Severe anxiety with panic (Chronic) Medical History Multiple endocrine neoplasia type I CKD (chronic kidney disease) stage 2, GFR 60-89 ml/min GFR 64-65, with Hx FLORESITA and GFR < 45 Primary hyperparathyroidism Complex medical condition Serious electrolyte imbalances, with gynecomastia, possible MEN Dx, CKD and anemia with baseline anxiety and Hx PTSD. Hypocalcemia Anxiety Depression Hyperlipidemia Family history of multiple endocrine neoplasia, type 1 PTSD (post-traumatic stress disorder) Per pt. states no triggers at this time. Surgical History History of laparoscopic cholecystectomy (~11/2023) H/O parathyroidectomy Family History Mother Anxiety Asthma Depression Sister Anxiety Depression Father Cancer lung & stomach Depression Diabetes Hypertension MEN 1 (multiple endocrine neoplasia) Social History Smoking/Tobacco Use Status: Never Smoking risk assessment performed?: Yes Alcohol Intake: never Drug use: Current Sobriety Substance use type: former substance user, crack/cocaine, heroin and painkillers Details: stopped using substances for the past 4 years Adopted: No Caregiver/Support person: No Foster care: No Household members: none Housing: apartment Number of Children: 0 Communication Needs: None Education Level: high school Do you need help understanding health information?: Never current occupation: [employer] Pets and animals: Yes (Ally) Pets and animals: dog(s) Sexually active: No Do you think of yourself as: straight/heterosexual Current gender identity: male What is your relationship status?: How often do you talk on the phone with friends or family?: twice per week How often do you get together with friends or relatives?: never Do you belong to any clubs or organized social groups?: no Panel score (0-1 are the most socially isolated patients): 0 What type of physical activity do you participate in: walking Duration: 15-30 minutes/day Frequency: 5-6 times per week Maryam/Islam: L[employer] Day Special maryam needs: No Seatbelt use: always Helmet use: Yes Helmet use: always Drive intox or ride w/intox corporate driver: No Do you feel safe at home: Yes Do you feel safe in your relationship?: Yes
[2025-03-04 11:20] LABS: Abs Immature Grans 0.04 10^3/uL (0.0-0.06); HCT 30.0 % (40.0-50.0); HGB 9.3 g/dL (13.5-17.5); Immature Grans % 0.5 %; MCH 26.1 pg (27.0-33.0); MCHC 31.0 % (32.0-36.0); MCV 84 fL (80-95); MPV 9.9 fL (8.0-11.0); Platelet Count 502 10^3/uL (130-400); RBC 3.56 10^6/uL (4.36-5.78); RDW 16.7 % (11.8-14.1); RDW-SD 51.9 fL; WBC 8.32 10^3/uL (4.4-10.8)
[2025-03-04 11:34] LABS: ALT 25 U/L (16-63); AST 18 U/L (15-37); Albumin 3.1 g/dL (3.4-5.0); Alkaline Phosphatase 152 U/L (46-116); Anion Gap 7.8 mmol/L (3-11); BUN 15 mg/dL (7-18); Bilirubin, Total 0.2 mg/dL (0.2-1.0); CO2 30.2 mmol/L (21.0-32.0); Calcium 8.8 mg/dL (8.5-10.1); Chloride 100 mmol/L (98-107); Estimated GFR 58.71 (mL/min/1.73m2); Glucose 113 mg/dL (74-106); INR 1.1 (0.9-1.1); PTT Activated 29.3 sec (20.6-30.2); Potassium 3.9 mmol/L (3.5-5.1); Prothrombin Time 10.8 sec (9.1-11.1); Sodium 138 mmol/L (136-145); Total Protein 8.3 g/dL (6.4-8.2)
[2025-03-04] MEDS: Normal Saline Flush 10 ML SYR IVP (12:01)
[2025-03-04] MEDS: Normal Saline - Diluent 50 ML VIAL IJ (12:01)
[2025-03-04] MEDS: Omnipaque 350 MG/ML 500 ML BTL-Imaging package IJ (12:02)
--- NOTE | 2025-03-04 12:07 | DI.CT_ITS ---
Exam(s) CT CHEST PE CTA EXAM: CT CHEST PE CTA CLINICAL HISTORY: hemoptosis, Fall four days ago, Hx Bilateral PE's. TECHNIQUE: Imaging Protocol: Axial CT angiography was performed with multi- slice acquisition and multi-planar and/or 3D reconstructions. Lung Computer Aided Detection (CAD) was utilized. CONTRAST MATERIAL: Intravenous: Omnipaque 350 contrast volume:100 mL COMPARISON: CT CT CHEST PE CTA from 02/24/2025 CR,XR XR CHEST 2V PA LATERAL from 03/01/2025 FINDINGS: Tracheobronchial tree: Patent where visualized. No bronchiectasis. Pulmonary parenchyma: There is poor inspiration there are faint ground-glass opacities throughout the lungs. No architectural distortion. Pulmonary Arteries: The pulmonary embolic load has decreased since the prior examination on 02/24/2025. There are however persistent filling defects seen in branches of the pulmonary arteries to the right upper lobe, left lower lobe and right lower lobe. Mediastinum and Jessika: No dominant adenopathy or fluid collection. The esophagus is unremarkable. Visualized thyroid gland: Unremarkable. Pleura: There is a persistent left small pleural effusion. No right pleural effusion. No pneumothorax is present. Heart: The heart is at the upper limits of normal in size. No coronary artery calcifications are seen. No pericardial effusion. The RV to LV ratio is 121. Aorta: Thoracic aorta non-dilated. No evidence of dissection. Upper abdomen: Status post cholecystectomy. Soft tissues: There is bilateral gynecomastia. Bones: Within normal limits for the patient's age.There are no displaced rib fractures. IMPRESSION: 1. The pulmonary embolic disease has decreased in extent compared to the prior examination from 02/24/2025. 2. Persistent small left pleural effusion. 3. Opacities in the lungs which likely are secondary to poor inspiration. There are no focal consolidating infiltrates present. RADIATION DOSE DELIVERED: 171mGy.cm Total DLP DATA REPOSITORY: All CT scans at this facility are submitted to the National Radiology Data Registry (NRDR) Dose Index Registry (DIR) with the [employer] (ACR). RADIATION OPTIMIZATION: All CT scans at this facility use at least one of these dose optimization techniques: automated exposure control; mA and/or kV adjustment per patient size (includes targeted exams where dose is matched to clinical indication); or iterative reconstruction.
== END 2025-03-04 13:27 | disposition home or self-care (01) ==
PROVIDERS: Emergency Provider Registered Nurse Emergency; PCP Physician Assistant
DX: R04.2 Hemoptysis (principal); I26.99 Other pulmonary embolism without acute cor pulmonale
CPT/HCPCS: 99283; 99285; 36415; 71275; 80053; 85025; 85610; 85730

== ENCOUNTER 2025-03-05 11:16 | Emergency (ER) | payer OTHER, SELFPAY ==
[2025-03-05 11:26] VITALS: BP 140/92; PULSE 93; RESP 16; TEMP 36.8; O2SAT 97
[2025-03-05] MEDS: MYLANTA 30 ML, LIDOCAINE 2% VISCOUS UD 15 ML PO (12:01)
--- NOTE | 2025-03-05 12:14 | W.ED.GENAD ---
Discharge Plan Disposition Patient Disposition: Home Condition: Stable Discharge Details Clinical Impression: Bloody sputum Primary Care Provider: Sanjana Pritchett ED Provider: Antoinette Templeton Home Meds and New Rx's Prescriptions: No Action gabapentin 300 mg capsule 300 mg PO BID Qty: 180 3RF omeprazole 40 mg capsule,delayed release(DR/EC) 40 mg PO DAILY Qty: 90 3RF lorazepam 1 mg tablet 1 mg PO DAILY PRN (Reason: anxiety) Qty: 10 0RF Rx Instructions: Use when considering ER visit cyclobenzaprine 10 mg tablet 10 mg PO TID PRN (Reason: muscle spasm) Qty: 30 3RF methadone 10 mg/5 mL solution 100 mg PO QAM calcitriol 0.5 mcg capsule 1 mcg PO .COMPLEX Qty: 270 3RF Rx Instructions: 1 mcg orally t2 tabs qam and 1 tab QHS; clonazepam 1 mg tablet 1 mg PO BID Qty: 10 0RF calcium carbonate [Tums] 200 mg calcium (500 mg) tablet,chewable 2,000 mg PO BID prochlorperazine maleate 5 mg tablet 5 mg PO TID PRN (Reason: acute nausea) Qty: 30 0RF polyethylene glycol 3350 17 gram powder in packet 17 g PO BID PRN magnesium gluconate 27 mg magnesium (500 mg) tablet 500 mg PO BID Rx Instructions: takes 500mg QAM and 1000mg QHS diclofenac sodium 1 % gel 2 g topical QID Qty: 50 0RF Rx Instructions: apply to single elbow, wrist or hand; for hand includes palm/fingers/back of hand Eliquis 5 mg tablet 5 mg PO BID Patient Comments: TAKE TWO TABLETS BY MOUTH TWICE A DAY FOR 7 DAYS oxycodone 10 mg tablet 10 mg PO Q6H PRNQty: 14 0RF Discharge Instructions Instructions: Coughing up blood Additional Instructions: Please keep your appointment at the [facility] on Friday as previously scheduled. You were given some medicine that will make your throat numb. This should wear off in the next 2 to 4 hours. Yesterday he had labs drawn and the repeat CT which was all within normal limits. Please call the radiology department on Friday morning to make an appointment to get a outpatient ultrasound of your right lower extremity. If you do have a blood clot in your leg it does not change the treatment as you are already on the treatment for blood clots. Follow up with primary care provider in 3-5 days. Return sooner if any worsening blood clots the size of quarters or larger, dizziness lightheadedness sweatiness pale blood in your stool. Referrals: Sanjana Pritchett [Primary Care Provider, Medicine] - 3 days Discharge Orders Other Ambulatory Orders: US lower extremity venous RT (Routine) Timeframe: 1 Week Facility: [facility] - Location: DIAGNOSTIC IMAGING Ordered By: Antoinette Templeton Discharge Data Discharge Date/Time-TO BE ENTERED AT DEPARTURE: 03/05/25 12:32 HPI General Mode of arrival: ambulatory. Date/Time Provider Initiated Documentation: 03/05/25 11:23. Limitations to Documentation: no limitations. Information obtained by: patient, RN notes reviewed and old records reviewed. HPI Narrative: 29-year-old male seen here approximately 9 times in February and was seen by myself yesterday for similar presents for the second time in 48 hours with a chief complaint of coughing up blood. He reports that he is only done at 1 time and is usually upon wakening. He is noted to be clearing his throat multiple times. He denies any chest pain palpitations shortness of breath however today he does also endorse some right groin pain. Was recently diagnosed with bilateral PEs and is on Eliquis 5 mg twice daily. Related Data Home Medications ?Medication ?Instructions ?Recorded ?Confirmed calcium carbonate (Tums) 2,000 mg PO BID 02/02/23 03/05/25 methadone 10 mg/5 mL oral solution 100 mg PO QAM 06/12/23 03/05/25 prochlorperazine maleate 5 mg 5 mg PO TID PRN acute nausea #30 09/06/23 03/05/25 tablet tabs gabapentin 300 mg capsule 300 mg PO BID #180 caps 06/01/24 03/05/25 calcitriol 0.5 mcg capsule 1 mcg (2 x 0.5 mcg) PO .COMPLEX 06/29/24 03/05/25 #270 caps omeprazole 40 mg capsule,delayed 40 mg PO DAILY #90 caps 07/27/24 03/05/25 release polyethylene glycol 3350 17 gram 17 g PO BID PRN 10/15/24 03/05/25 oral powder packet lorazepam 1 mg tablet 1 mg PO DAILY PRN anxiety #10 tabs 10/19/24 03/05/25 cyclobenzaprine 10 mg tablet 10 mg PO TID PRN muscle spasm #30 11/16/24 03/05/25 tabs magnesium gluconate 27 mg 500 mg PO BID 01/30/25 03/05/25 magnesium (500 mg) tablet diclofenac sodium 1 % topical gel 2 g topical QID #50 grams 02/03/25 03/05/25 clonazepam 1 mg tablet 1 mg PO BID #10 tabs 02/08/25 03/05/25 oxycodone 10 mg tablet 10 mg PO Q6H PRN #14 tabs 02/23/25 03/05/25 apixaban 5 mg tablet (Eliquis) 5 mg PO BID 03/03/25 03/05/25 Previous Rx's ?Medication ?Instructions ?Recorded prochlorperazine maleate 5 mg 5 mg PO TID PRN acute nausea #30 09/06/23 tablet tabs gabapentin 300 mg capsule 300 mg PO BID #180 caps 06/01/24 calcitriol 0.5 mcg capsule 1 mcg (2 x 0.5 mcg) PO .COMPLEX 06/29/24 #270 caps omeprazole 40 mg capsule,delayed 40 mg PO DAILY #90 caps 07/27/24 release lorazepam 1 mg tablet 1 mg PO DAILY PRN anxiety #10 tabs 10/19/24 cyclobenzaprine 10 mg tablet 10 mg PO TID PRN muscle spasm #30 11/16/24 tabs diclofenac sodium 1 % topical gel 2 g topical QID #50 grams 02/03/25 clonazepam 1 mg tablet 1 mg PO BID #10 tabs 02/08/25 oxycodone 10 mg tablet 10 mg PO Q6H PRN #14 tabs 02/23/25 Allergies Allergy/AdvReac Type Severity Reaction Status Date / Time codeine Allergy Intermediate pass out Verified 03/05/25 11:31 Penicillins Allergy Skin Rash Verified 03/05/25 11:31 marijuana (cannabis) AdvReac Severe Paranoia Verified 03/05/25 11:31 amoxicillin AdvReac Intermediate Nausea Verified 03/05/25 11:31 dextromethorphan (From AdvReac Intermediate got Verified 03/05/25 11:31 NyQuil) really hot and sweaty doxylamine (From NyQuil) AdvReac Intermediate got Verified 03/05/25 11:31 really hot and sweaty pseudoephedrine (From NyQuil) AdvReac Intermediate got Verified 03/05/25 11:31 really hot and sweaty General Stated Complaint: GenMedical ADRIANA: 3 Review of Systems All systems reviewed & are unremarkable except as noted in HPI and below Cardiovascular Cardiovascular: Denies chest pain Respiratory Respiratory: Reports hemoptysis Exam Const General: cooperative, no acute distress and anxious Nutritional Appearance: obese centrally obese Orientation: alert, awake and oriented x3 HENMT Head: normal to inspection General nose exam: external nose normal, nares normal, no nasal polyps, nasal mucous membranes and turbinates normal and no nasal discharge Mouth: oral mucosae normal, lip normal, tongue normal, oropharynx normal, moist mucous membranes, no audible dysphonia and no drooling Teeth and gingiva: other (Absent dentition) Throat: posterior oropharynx normal, tonsils normal and uvula midline Neck Neck: full ROM, no lymphadenopathy, trachea midline and supple Resp Effort & Inspection: normal respiratory effort, able to speak in complete sentences, no audible wheezes, no grunting, not labored, no nasal flaring, no pursed lip breathing, no respiratory distress, no stridor, not tachypneic, no tripod positioning, no use of accessory muscles and No prolonged expiratory phase Auscultation: clear to auscultation bilaterally Cardio Rate: regular rate Rhythm: regular rhythm Heart Sounds: S1 normal and S2 normal GI Palpation: soft and no guarding Course Vital Signs Vital signs: Vital Signs Temperature 36.8 C 03/05/25 11:26 Pulse 93 H 03/05/25 11:26 Respiratory Rate 16 03/05/25 11:26 Blood Pressure 140/92 H 03/05/25 11:26 Pulse Oximetry 97 03/05/25 11:26 Temperature 36.8 C 03/05/25 11:26 Temperature Source Oral 03/05/25 11:26 Pulse 93 H 03/05/25 11:26 Respiratory Rate 16 03/05/25 11:26 Blood Pressure 140/92 H 03/05/25 11:26 Blood Pressure Position Sitting 03/05/25 11:26 Pulse Oximetry 97 03/05/25 11:26 Oxygen Delivery Method Room Air 03/05/25 11:26 Oxygen Flow Rate 0 03/05/25 11:26 Pain Level 6 03/05/25 11:26 Medical Decision Making 29-year-old male seen here approximately 9 times in February and was seen by myself yesterday for similar presents for the second time in 48 hours with a chief complaint of coughing up blood. He reports that he is only done at 1 time and is usually upon wakening. He is noted to be clearing his throat multiple times. He denies any chest pain palpitations shortness of breath however today he does also endorse some right groin pain. Was recently diagnosed with bilateral PEs and is on Eliquis 5 mg twice daily. GI cocktail given, discussed home care, strict return instructions and reassurance. Patient reports that he is scared, re-encouraged patient at this time additional and repeat workup not deemed necessary. Discussed strict return instructions and home care. Patient verbalized understanding and reports that he is scared, encouraged patient that is reassuring that his heart rate is better, there is no copious amounts of bleeding he is still frequently clearing his throat. He was given a GI cocktail here in the department which seems to help his symptoms. He does have an upcoming appointment on Friday I did encourage him to keep that appointment or to return if any severe worsening. Return instructions discussed at length. This text was generated using [employer] dictation system, please disregard any oddities of phrase or misspellings. Medical Records Medical records reviewed: Yes I reviewed the patient's medical records. Lab Data Lab results reviewed: Yes I reviewed the patient's lab results. Quality:SDOH Health Related Social Needs: Health related social needs daily activities PFSH All Active Problems (Updated 03/05/25 @ 12:20 by Antoinette Templeton NP) Rt groin pain (Acute) Bloody sputum (Acute) Left ankle sprain (Acute) Rash (Acute) Shortness of breath (Acute) Edema, peripheral (Acute) Anxiety (Chronic) Chest discomfort (Acute) Pulmonary embolism and infarction (Acute) Left pulmonary infiltrate on CXR (Acute) Bilateral pulmonary embolism (Acute) Tenderness of neck (Acute) Right elbow pain (Acute) Acute leg pain (Acute) Bronchitis (Acute) Well adult health check (Acute) Obstructive sleep apnea (Chronic) Metabolic dysfunction-associated fatty liver disease (MAFLD) (Acute) Fatty liver (Acute) IBS (irritable bowel syndrome) (Chronic) Obesity (Chronic) Migraine with aura (Acute) Testicle lump (Acute) Pes anserine bursitis (Acute) Left-sided Flower's palsy (Acute) Opiate dependence, continuous (Acute) 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 Possible 2' Methadone, Clnzpm (?). Surg eval (+)/No further action. History of electrolyte imbalance (Acute) Neck pain on left side (Acute) with shoulder, upper back pain.. torticollis, radiating into left hip/leg Pulmonary nodule 1 cm or greater in diameter (Chronic) Therapeutic opioid induced constipation (Acute) Sphincter of Oddi dysfunction (Chronic) Abnormal CT scan, kidney (Acute) Intrahepatic bile duct dilation (Acute) Common bile duct dilatation (Chronic) Has been dilated for quite some time, now more-so. Normal LFTs. Known gallstones. Depression (Chronic) Elevated parathyroid hormone (Acute) Family history of coronary arteriosclerosis (Chronic) Father of CA at 50, mother had CA at 42 Severe anxiety with panic (Chronic) Medical History Multiple endocrine neoplasia type I CKD (chronic kidney disease) stage 2, GFR 60-89 ml/min GFR 64-65, with Hx FLORESITA and GFR < 45 Primary hyperparathyroidism Complex medical condition Serious electrolyte imbalances, with gynecomastia, possible MEN Dx, CKD and anemia with baseline anxiety and Hx PTSD. Hypocalcemia Anxiety Depression Hyperlipidemia Family history of multiple endocrine neoplasia, type 1 PTSD (post-traumatic stress disorder) Per pt. states no triggers at this time. Surgical History History of laparoscopic cholecystectomy (~11/2023) H/O parathyroidectomy Family History Mother Anxiety Asthma Depression Sister Anxiety Depression Father Cancer lung & stomach Depression Diabetes Hypertension MEN 1 (multiple endocrine neoplasia) Social History Smoking/Tobacco Use Status: Never Smoking risk assessment performed?: Yes Alcohol Intake: never Drug use: Current Sobriety Substance use type: former substance user, crack/cocaine, heroin and painkillers Details: stopped using substances for the past 4 years Adopted: No Caregiver/Support person: No Foster care: No Household members: none Housing: apartment Number of Children: 0 Communication Needs: None Education Level: high school Do you need help understanding health information?: Never current occupation: [employer] Pets and animals: Yes (Ally) Pets and animals: dog(s) Sexually active: No Do you think of yourself as: straight/heterosexual Current gender identity: male What is your relationship status?: How often do you talk on the phone with friends or family?: twice per week How often do you get together with friends or relatives?: never Do you belong to any clubs or organized social groups?: no Panel score (0-1 are the most socially isolated patients): 0 What type of physical activity do you participate in: walking Duration: 15-30 minutes/day Frequency: 5-6 times per week Maryam/Denominational: Yazidi Special maryam needs: No Seatbelt use: always Helmet use: Yes Helmet use: always Drive intox or ride w/intox 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
[2025-03-05 12:31] VITALS: BP 140/92; PULSE 93; RESP 16; TEMP 36.8; O2SAT 97
== END 2025-03-05 12:32 | disposition home or self-care (01) ==
PROVIDERS: Emergency Provider Registered Nurse Emergency; PCP Physician Assistant
DX: R04.2 Hemoptysis; N18.2 Chronic kidney disease, stage 2 (mild); E89.2 Postprocedural hypoparathyroidism; E78.5 Hyperlipidemia, unspecified; Z86.711 Personal history of pulmonary embolism; Z79.01 Long term (current) use of anticoagulants
CPT/HCPCS: 99283

== ENCOUNTER 2025-03-07 11:44 | Emergency (ER) | payer OTHER, SELFPAY ==
[2025-03-07 11:51] VITALS: BP 148/80; PULSE 106; RESP 14; TEMP 36.4; O2SAT 96
--- NOTE | 2025-03-07 12:00 | DI.RAD_ITS ---
Exam(s) XR CHEST 2V PA LATERAL EXAM: XR CHEST 2V PA LATERAL CLINICAL HISTORY: left sided chest pain TECHNIQUE: 2D digital imaging was performed. Two views. COMPARISON: CT CT CHEST PE CTA from 03/04/2025 FINDINGS: HEART: Normal size. Aorta: Not dilated. PULMONARY VASCULATURE: Normal. MEDIASTINUM: Unremarkable. LUNGS: Clear. PLEURAL SPACE: No pleural effusion or pneumothorax. BONE:Unremarkable for age. SOFT TISSUES: Unremarkable. IMPRESSION: No acute abnormality. DATA REPOSITORY: RADIATION DOSE DELIVERED:
--- NOTE | 2025-03-07 12:02 | W.ED.GENAD ---
Discharge Plan Disposition Patient Disposition: Home Condition: Stable Discharge Details Clinical Impression: Chest pain Primary Care Provider: Sanjana Pritchett ED Provider: Ricardo Crabtree Home Meds and New Rx's Prescriptions: Continued gabapentin 300 mg capsule 300 mg PO BID Qty: 180 3RF omeprazole 40 mg capsule,delayed release(DR/EC) 40 mg PO DAILY Qty: 90 3RF lorazepam 1 mg tablet 1 mg PO DAILY PRN (Reason: anxiety) Qty: 10 0RF Rx Instructions: Use when considering ER visit cyclobenzaprine 10 mg tablet 10 mg PO TID PRN (Reason: muscle spasm) Qty: 30 3RF methadone 10 mg/5 mL solution 100 mg PO QAM calcitriol 0.5 mcg capsule 1 mcg PO .COMPLEX Qty: 270 3RF Rx Instructions: 1 mcg orally t2 tabs qam and 1 tab QHS; clonazepam 1 mg tablet 1 mg PO BID Qty: 10 0RF calcium carbonate [Tums] 200 mg calcium (500 mg) tablet,chewable 2,000 mg PO BID prochlorperazine maleate 5 mg tablet 5 mg PO TID PRN (Reason: acute nausea) Qty: 30 0RF polyethylene glycol 3350 17 gram powder in packet 17 g PO BID PRN magnesium gluconate 27 mg magnesium (500 mg) tablet 500 mg PO BID Rx Instructions: takes 500mg QAM and 1000mg QHS diclofenac sodium 1 % gel 2 g topical QID Qty: 50 0RF Rx Instructions: apply to single elbow, wrist or hand; for hand includes palm/fingers/back of hand Eliquis 5 mg tablet 5 mg PO BID Patient Comments: TAKE TWO TABLETS BY MOUTH TWICE A DAY FOR 7 DAYS oxycodone 10 mg tablet 10 mg PO Q6H PRNQty: 14 0RF Discharge Instructions Additional Instructions: Your blood work and x-ray did not show any concerning findings. Follow-up with your primary care provider. If you feel significantly more ill or have new symptoms such as high fevers return to emergency department for reevaluation HPI General Mode of arrival: ambulatory. Date/Time Provider Initiated Documentation: 03/07/25 11:49. Limitations to Documentation: no limitations. Information obtained by: patient. History of Present Illness 29 year old M presents to the emergency department with the chief complaint of left sided chest pain, described as moderate, Quality is described as sharp, and is localized to the chest. Patient reports no radiation. Patient started experiencing this week(s) (1) and it has been constant. No relieving factors improve symptom(s), Other factors that worsen symptoms (deep breaths) . Patient notes no other symptoms.. Patient did receive the following treatments prior to arrival, none Related Data Home Medications ?Medication ?Instructions ?Recorded ?Confirmed calcium carbonate (Tums) 2,000 mg PO BID 02/02/23 03/07/25 methadone 10 mg/5 mL oral solution 100 mg PO QAM 06/12/23 03/07/25 prochlorperazine maleate 5 mg 5 mg PO TID PRN acute nausea #30 09/06/23 03/07/25 tablet tabs gabapentin 300 mg capsule 300 mg PO BID #180 caps 06/01/24 03/07/25 calcitriol 0.5 mcg capsule 1 mcg (2 x 0.5 mcg) PO .COMPLEX 06/29/24 03/07/25 #270 caps omeprazole 40 mg capsule,delayed 40 mg PO DAILY #90 caps 07/27/24 03/07/25 release polyethylene glycol 3350 17 gram 17 g PO BID PRN 10/15/24 03/07/25 oral powder packet lorazepam 1 mg tablet 1 mg PO DAILY PRN anxiety #10 tabs 10/19/24 03/07/25 cyclobenzaprine 10 mg tablet 10 mg PO TID PRN muscle spasm #30 11/16/24 03/07/25 tabs magnesium gluconate 27 mg 500 mg PO BID 01/30/25 03/07/25 magnesium (500 mg) tablet diclofenac sodium 1 % topical gel 2 g topical QID #50 grams 02/03/25 03/07/25 clonazepam 1 mg tablet 1 mg PO BID #10 tabs 02/08/25 03/07/25 oxycodone 10 mg tablet 10 mg PO Q6H PRN #14 tabs 02/23/25 03/07/25 apixaban 5 mg tablet (Eliquis) 5 mg PO BID 03/03/25 03/07/25 Previous Rx's ?Medication ?Instructions ?Recorded prochlorperazine maleate 5 mg 5 mg PO TID PRN acute nausea #30 09/06/23 tablet tabs gabapentin 300 mg capsule 300 mg PO BID #180 caps 06/01/24 calcitriol 0.5 mcg capsule 1 mcg (2 x 0.5 mcg) PO .COMPLEX 06/29/24 #270 caps omeprazole 40 mg capsule,delayed 40 mg PO DAILY #90 caps 07/27/24 release lorazepam 1 mg tablet 1 mg PO DAILY PRN anxiety #10 tabs 10/19/24 cyclobenzaprine 10 mg tablet 10 mg PO TID PRN muscle spasm #30 11/16/24 tabs diclofenac sodium 1 % topical gel 2 g topical QID #50 grams 02/03/25 clonazepam 1 mg tablet 1 mg PO BID #10 tabs 02/08/25 oxycodone 10 mg tablet 10 mg PO Q6H PRN #14 tabs 02/23/25 Allergies Allergy/AdvReac Type Severity Reaction Status Date / Time codeine Allergy Intermediate pass out Verified 03/07/25 12:10 Penicillins Allergy Skin Rash Verified 03/07/25 12:10 marijuana (cannabis) AdvReac Severe Paranoia Verified 03/07/25 12:10 amoxicillin AdvReac Intermediate Nausea Verified 03/07/25 12:10 dextromethorphan (From AdvReac Intermediate got Verified 03/07/25 12:10 NyQuil) really hot and sweaty doxylamine (From NyQuil) AdvReac Intermediate got Verified 03/07/25 12:10 really hot and sweaty pseudoephedrine (From NyQuil) AdvReac Intermediate got Verified 03/07/25 12:10 really hot and sweaty General Stated Complaint: GenMedical ADRIANA: 4 Review of Systems All systems reviewed & are unremarkable except as noted in HPI and below Constitutional Constitutional: Denies chills, Denies fever(s) and Denies weakness Cardiovascular Cardiovascular: Reports chest pain and Reports dyspnea Respiratory Respiratory: Denies cough and Reports dyspnea Gastrointestinal Gastrointestinal: Denies abdominal pain, Denies nausea and Denies vomiting Genitourinary Genitourinary: Denies dysuria Neurologic Neurologic: Denies weakness Exam Const General: no acute distress Orientation: alert [facility] Head: normal to inspection Ears: external ears normal General nose exam: external nose normal Mouth: moist mucous membranes Eyes General: appearance normal, both eyes and all related structures Neck Neck: normal visual inspection Resp Effort & Inspection: normal respiratory effort and able to speak in complete sentences Auscultation: clear to auscultation bilaterally Cardio Jugular venous pressure: no JVD Rate: regular rate GI Palpation: nontender Skin General skin exam: no rashes or lesions noted Neuro General: patient alert and patient oriented x3 Extrem General: normal to inspection Psych Mental Status: mental status grossly normal Course Vital Signs Vital signs: Vital Signs Temperature 36.4 C 03/07/25 11:51 Pulse 106 H 03/07/25 11:51 Respiratory Rate 14 03/07/25 11:51 Blood Pressure 148/80 H 03/07/25 11:51 Pulse Oximetry 96 03/07/25 11:51 Temperature 36.4 C 03/07/25 11:51 Temperature Source Oral 03/07/25 11:51 Pulse 106 H 03/07/25 11:51 Respiratory Rate 14 03/07/25 11:51 Blood Pressure 148/80 H 03/07/25 11:51 Blood Pressure Position Sitting 03/07/25 11:51 Pulse Oximetry 96 03/07/25 11:51 Oxygen Delivery Method Room Air 03/07/25 11:51 Oxygen Flow Rate 0 03/07/25 11:51 Medical Decision Making 29-year-old male who was recently diagnosed with left-sided pulmonary embolisms comes in with pain in the left chest when he takes a deep breath. Denies any fevers, chills, persistent cough. He is well-appearing speaking full sentences. He has no hypoxia. Heart rates less than 110. He has no JVD. He localizes the pain to the left anterior chest and left upper back without any visible or palpable deformities. Clear lung sounds, no JVD. I suspect his pain is from his known PEs, given his no hypoxia and he has stable vital signs I do not feel repeat CTA is indicated. He denies missing any of his anticoagulation doses. I will check a CBC CMP and troponin and also a chest x-ray and reassess. X-ray and labs show no significant changes from baseline. No acute findings on the x-ray. He is stable, still hypoxia or significant tachycardia. He will continue his anticoagulation and follow-up with his PCP, return precautions given Differential Diagnosis Differential Diagnosis: Pleurisy, PE Lab Data Lab results reviewed: Yes I reviewed the patient's lab results. ECG Data Attestation: I personally reviewed and interpreted this ECG (s) as follows: Prior ECG tracings: available for review Interpretation: sinus rhythm, rate of 90 no stemi Quality:SDOH Health Related Social Needs: Health related social needs daily activities PFSH All Active Problems (Updated 03/07/25 @ 13:44 by Ricardo Crabtree MD) Chest pain (Acute) Rt groin pain (Acute) Bloody sputum (Acute) Left ankle sprain (Acute) Rash (Acute) Shortness of breath (Acute) Edema, peripheral (Acute) Anxiety (Chronic) Chest discomfort (Acute) Pulmonary embolism and infarction (Acute) Left pulmonary infiltrate on CXR (Acute) Bilateral pulmonary embolism (Acute) Tenderness of neck (Acute) Right elbow pain (Acute) Acute leg pain (Acute) Bronchitis (Acute) Well adult health check (Acute) Obstructive sleep apnea (Chronic) Metabolic dysfunction-associated fatty liver disease (MAFLD) (Acute) Fatty liver (Acute) IBS (irritable bowel syndrome) (Chronic) Obesity (Chronic) Migraine with aura (Acute) Testicle lump (Acute) Pes anserine bursitis (Acute) Left-sided Flower's palsy (Acute) Opiate dependence, continuous (Acute) 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 Possible 2' Methadone, Clnzpm (?). Surg eval (+)/No further action. History of electrolyte imbalance (Acute) Neck pain on left side (Acute) with shoulder, upper back pain.. torticollis, radiating into left hip/leg Pulmonary nodule 1 cm or greater in diameter (Chronic) Therapeutic opioid induced constipation (Acute) Sphincter of Oddi dysfunction (Chronic) Abnormal CT scan, kidney (Acute) Intrahepatic bile duct dilation (Acute) Common bile duct dilatation (Chronic) Has been dilated for quite some time, now more-so. Normal LFTs. Known gallstones. Depression (Chronic) Elevated parathyroid hormone (Acute) Family history of coronary arteriosclerosis (Chronic) Father of [place] at 50, mother had [place] at 42 Severe anxiety with panic (Chronic) Medical History Multiple endocrine neoplasia type I CKD (chronic kidney disease) stage 2, GFR 60-89 ml/min GFR 64-65, with Hx FLORESITA and GFR < 45 Primary hyperparathyroidism Complex medical condition Serious electrolyte imbalances, with gynecomastia, possible MEN Dx, CKD and anemia with baseline anxiety and Hx PTSD. Hypocalcemia Anxiety Depression Hyperlipidemia Family history of multiple endocrine neoplasia, type 1 PTSD (post-traumatic stress disorder) Per pt. states no triggers at this time. Surgical History History of laparoscopic cholecystectomy (~11/2023) H/O parathyroidectomy Family History Mother Anxiety Asthma Depression Sister Anxiety Depression Father Cancer lung & stomach Depression Diabetes Hypertension MEN 1 (multiple endocrine neoplasia) Social History Smoking/Tobacco Use Status: Never Smoking risk assessment performed?: Yes Alcohol Intake: never Drug use: Current Sobriety Substance use type: former substance user, crack/cocaine, heroin and painkillers Details: stopped using substances for the past 4 years Adopted: No Caregiver/Support person: No Foster care: No Household members: none Housing: apartment Number of Children: 0 Communication Needs: None Education Level: high school Do you need help understanding health information?: Never 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 [employer] Pets and animals: Yes (Ally) Pets and animals: dog(s) Sexually active: No Do you think of yourself as: straight/heterosexual Current gender identity: male What is your relationship status?: How often do you talk on the phone with friends or family?: twice per week How often do you get together with friends or relatives?: never Do you belong to any clubs or organized social groups?: no Panel score (0-1 are the most socially isolated patients): 0 What type of physical activity do you participate in: walking Duration: 15-30 minutes/day Frequency: 5-6 times per week Maryam/Zoroastrian: Zoroastrian Special maryam needs: No Seatbelt use: always Helmet use: Yes Helmet use: always Drive intox or ride w/intox vacuum truck driver: No Do you feel safe at home: Yes Do you feel safe in your relationship?: Yes
[2025-03-07 12:12] VITALS: BP 148/80; PULSE 106; RESP 14; TEMP 36.4; O2SAT 96
--- NOTE | 2025-03-07 12:30 | RT.EKG_ITS ---
APPROVED REPORT Exam: Resting ECG Reason for Exam: chest pain Patient Location: E HR:90 bpm ECG Measurements Heart Rate 90 AXIS OK 171 P 33 QRSd 95 QRS 17 QT 370 T 42 QTc 453 Conclusion Sinus rhythm...normal P axis, V-rate 60- 99
[2025-03-07 12:55] VITALS: RESP 16
[2025-03-07 12:55] LABS: Troponin I < 4 ng/L (<or=76)
[2025-03-07 13:03] LABS: Abs Immature Grans 0.04 10^3/uL (0.0-0.06); HCT 32.7 % (40.0-50.0); HGB 10.0 g/dL (13.5-17.5); Immature Grans % 0.6 %; MCH 25.4 pg (27.0-33.0); MCHC 30.6 % (32.0-36.0); MCV 83 fL (80-95); MPV 10.0 fL (8.0-11.0); Platelet Count 522 10^3/uL (130-400); RBC 3.94 10^6/uL (4.36-5.78); RDW 16.3 % (11.8-14.1); RDW-SD 49.7 fL; WBC 7.10 10^3/uL (4.4-10.8)
[2025-03-07 13:05] LABS: ALT 30 U/L (16-63); AST 23 U/L (15-37); Albumin 3.5 g/dL (3.4-5.0); Alkaline Phosphatase 158 U/L (46-116); Anion Gap 8.0 mmol/L (3-11); BUN 11 mg/dL (7-18); Bilirubin, Total 0.2 mg/dL (0.2-1.0); CO2 30.0 mmol/L (21.0-32.0); Calcium 9.1 mg/dL (8.5-10.1); Chloride 99 mmol/L (98-107); Estimated GFR 63.44 (mL/min/1.73m2); Glucose 111 mg/dL (74-106); Magnesium 1.8 mg/dL (1.8-2.4); Potassium 4.0 mmol/L (3.5-5.1); Sodium 137 mmol/L (136-145); Total Protein 8.9 g/dL (6.4-8.2)
[2025-03-07 13:53] VITALS: BP 136/71; PULSE 99; RESP 12; O2SAT 98
== END 2025-03-07 13:54 | disposition home or self-care (01) ==
PROVIDERS: Emergency Provider Emergency Medicine; PCP Physician Assistant
DX: F41.9 Anxiety disorder, unspecified (principal); F41.0 Panic disorder [episodic paroxysmal anxiety]; E78.5 Hyperlipidemia, unspecified; N18.2 Chronic kidney disease, stage 2 (mild); E89.2 Postprocedural hypoparathyroidism; Z79.01 Long term (current) use of anticoagulants
CPT/HCPCS: 80053; 93005; 99284; 71046; 83735; 84484; 85025; 93010

== ENCOUNTER 2025-03-07 20:28 | Emergency (ER) | payer OTHER, SELFPAY ==
--- NOTE | 2025-03-07 20:30 | RT.EKG_ITS ---
APPROVED REPORT Exam: Resting ECG Reason for Exam: Chest Pain Patient Location: E HR:83 bpm ECG Measurements Heart Rate 83 AXIS WI 177 P 31 QRSd 98 QRS 16 QT 382 T 45 QTc 449 Conclusion Sinus rhythm, rate 83 No interval abnormalities No STEMI No significant changes from prior
[2025-03-07 20:31] VITALS: BP 138/90; PULSE 99; RESP 18; TEMP 36.6; O2SAT 98
[2025-03-07 21:46] VITALS: RESP 18
--- NOTE | 2025-03-07 22:57 | W.ED.GENAD ---
Discharge Plan Disposition Patient Disposition: Home Condition: Stable Discharge Details Clinical Impression: Arm pain, left Primary Care Provider: Sanjana Pritchett ED Provider: Luh Tsai Home Meds and New Rx's Prescriptions: Continued gabapentin 300 mg capsule 300 mg PO BID Qty: 180 3RF omeprazole 40 mg capsule,delayed release(DR/EC) 40 mg PO DAILY Qty: 90 3RF lorazepam 1 mg tablet 1 mg PO DAILY PRN (Reason: anxiety) Qty: 10 0RF Rx Instructions: Use when considering ER visit cyclobenzaprine 10 mg tablet 10 mg PO TID PRN (Reason: muscle spasm) Qty: 30 3RF methadone 10 mg/5 mL solution 100 mg PO QAM calcitriol 0.5 mcg capsule 1 mcg PO .COMPLEX Qty: 270 3RF Rx Instructions: 1 mcg orally t2 tabs qam and 1 tab QHS; clonazepam 1 mg tablet 1 mg PO BID Qty: 10 0RF calcium carbonate [Tums] 200 mg calcium (500 mg) tablet,chewable 2,000 mg PO BID prochlorperazine maleate 5 mg tablet 5 mg PO TID PRN (Reason: acute nausea) Qty: 30 0RF polyethylene glycol 3350 17 gram powder in packet 17 g PO BID PRN magnesium gluconate 27 mg magnesium (500 mg) tablet 500 mg PO BID Rx Instructions: takes 500mg QAM and 1000mg QHS diclofenac sodium 1 % gel 2 g topical QID Qty: 50 0RF Rx Instructions: apply to single elbow, wrist or hand; for hand includes palm/fingers/back of hand Eliquis 5 mg tablet 5 mg PO BID Patient Comments: TAKE TWO TABLETS BY MOUTH TWICE A DAY FOR 7 DAYS oxycodone 10 mg tablet 10 mg PO Q6H PRNQty: 14 0RF Discharge Instructions Additional Instructions: I have ordered an ultrasound of your left arm for tomorrow Please follow-up with your 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 appointment tomorrow Your EKG is reassuring Call first thing in the morning to schedule your ultrasound and return earlier should you have any worsening complaints Of note on your CAT scan from March 04, it looks like the blood clots in your lungs are improving with Eliquis Work on reestablishing with a counselor :) Referrals: Sanjana Pritchett [Primary Care Provider, Medicine] Discharge Orders Other Ambulatory Orders: US upper extremity venous LT (STAT) Timeframe: 20250317 Facility: [facility] - Location: DIAGNOSTIC IMAGING Ordered By: Luh Tsai HPI General Date/Time Provider Initiated Documentation: 03/07/25 20:35. HPI Narrative: This 29-year-old male with recent diagnosis of bilateral pulmonary emboli. He has been taking his Eliquis regularly. Patient denies any current chest pain or shortness of breath. He states he was evaluated this morning but became concerned regarding his left arm. He states it is a deep pain. He denies known exacerbating or alleviating factors or calf pain or swelling. Related Data Home Medications ?Medication ?Instructions ?Recorded ?Confirmed calcium carbonate (Tums) 2,000 mg PO BID 02/02/23 03/07/25 methadone 10 mg/5 mL oral solution 100 mg PO QAM 06/12/23 03/07/25 prochlorperazine maleate 5 mg 5 mg PO TID PRN acute nausea #30 09/06/23 03/07/25 tablet tabs gabapentin 300 mg capsule 300 mg PO BID #180 caps 06/01/24 03/07/25 calcitriol 0.5 mcg capsule 1 mcg (2 x 0.5 mcg) PO .COMPLEX 06/29/24 03/07/25 #270 caps omeprazole 40 mg capsule,delayed 40 mg PO DAILY #90 caps 07/27/24 03/07/25 release polyethylene glycol 3350 17 gram 17 g PO BID PRN 10/15/24 03/07/25 oral powder packet lorazepam 1 mg tablet 1 mg PO DAILY PRN anxiety #10 tabs 10/19/24 03/07/25 cyclobenzaprine 10 mg tablet 10 mg PO TID PRN muscle spasm #30 11/16/24 03/07/25 tabs magnesium gluconate 27 mg 500 mg PO BID 01/30/25 03/07/25 magnesium (500 mg) tablet diclofenac sodium 1 % topical gel 2 g topical QID #50 grams 02/03/25 03/07/25 clonazepam 1 mg tablet 1 mg PO BID #10 tabs 02/08/25 03/07/25 oxycodone 10 mg tablet 10 mg PO Q6H PRN #14 tabs 02/23/25 03/07/25 apixaban 5 mg tablet (Eliquis) 5 mg PO BID 03/03/25 03/07/25 Previous Rx's ?Medication ?Instructions ?Recorded prochlorperazine maleate 5 mg 5 mg PO TID PRN acute nausea #30 09/06/23 tablet tabs gabapentin 300 mg capsule 300 mg PO BID #180 caps 06/01/24 calcitriol 0.5 mcg capsule 1 mcg (2 x 0.5 mcg) PO .COMPLEX 06/29/24 #270 caps omeprazole 40 mg capsule,delayed 40 mg PO DAILY #90 caps 07/27/24 release lorazepam 1 mg tablet 1 mg PO DAILY PRN anxiety #10 tabs 10/19/24 cyclobenzaprine 10 mg tablet 10 mg PO TID PRN muscle spasm #30 11/16/24 tabs diclofenac sodium 1 % topical gel 2 g topical QID #50 grams 02/03/25 clonazepam 1 mg tablet 1 mg PO BID #10 tabs 02/08/25 oxycodone 10 mg tablet 10 mg PO Q6H PRN #14 tabs 02/23/25 Allergies Allergy/AdvReac Type Severity Reaction Status Date / Time codeine Allergy Intermediate pass out Verified 03/07/25 20:34 Penicillins Allergy Skin Rash Verified 03/07/25 20:34 marijuana (cannabis) AdvReac Severe Paranoia Verified 03/07/25 20:34 amoxicillin AdvReac Intermediate Nausea Verified 03/07/25 20:34 dextromethorphan (From AdvReac Intermediate got Verified 03/07/25 20:34 NyQuil) really hot and sweaty doxylamine (From NyQuil) AdvReac Intermediate got Verified 03/07/25 20:34 really hot and sweaty pseudoephedrine (From NyQuil) AdvReac Intermediate got Verified 03/07/25 20:34 really hot and sweaty General Stated Complaint: Chest Pain ADRIANA: 3 Exam Narrative Exam Narrative: Alert and oriented 29-year-old male presenting in no acute distress distal pulses intact bilateral upper extremities speaking in complete sentences lungs clear to auscultation cardiac rate rhythm regular no rashes or lesions Course Vital Signs Vital signs: Vital Signs Temperature 36.6 C 03/07/25 20:31 Pulse 99 H 03/07/25 20:31 Respiratory Rate 18 03/07/25 20:31 Blood Pressure 138/90 03/07/25 20:31 Pulse Oximetry 98 03/07/25 20:31 Temperature 36.6 C 03/07/25 20:31 Temperature Source Tympanic 03/07/25 20:31 Pulse 99 H 03/07/25 20:31 Respiratory Rate 18 03/07/25 21:46 Respiratory Effort Normal, Non-Labored 03/07/25 21:46 Respiratory Depth Normal 03/07/25 21:46 Respiratory Pattern Normal 03/07/25 21:46 Blood Pressure 138/90 03/07/25 20:31 Pulse Oximetry 98 03/07/25 20:31 Pain Level 0 03/07/25 21:46 Medical Decision Making Patient presenting with left upper extremity pain. Ultrasound was ordered of patient's left upper extremity for tomorrow although there are no overt findings consistent with a DVT on assessment patient is at risk given his recent diagnosis of PE. He is encouraged to call first thing in the morning for ultrasound and return earlier should he have new or worsening complaints. He is encouraged to continue on his Eliquis at this time. Quality:SDOH Health Related Social Needs: Health related social needs daily activities PFSH All Active Problems (Updated 03/07/25 @ 21:25 by ANDREW Arriaga) Arm pain, left (Acute) Chest pain (Acute) Rt groin pain (Acute) Bloody sputum (Acute) Left ankle sprain (Acute) Rash (Acute) Shortness of breath (Acute) Edema, peripheral (Acute) Anxiety (Chronic) Chest discomfort (Acute) Pulmonary embolism and infarction (Acute) Left pulmonary infiltrate on CXR (Acute) Bilateral pulmonary embolism (Acute) Tenderness of neck (Acute) Right elbow pain (Acute) Acute leg pain (Acute) Bronchitis (Acute) Well adult health check (Acute) Obstructive sleep apnea (Chronic) Metabolic dysfunction-associated fatty liver disease (MAFLD) (Acute) Fatty liver (Acute) IBS (irritable bowel syndrome) (Chronic) Obesity (Chronic) Migraine with aura (Acute) Testicle lump (Acute) Pes anserine bursitis (Acute) Left-sided Flower's palsy (Acute) Opiate dependence, continuous (Acute) 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 Possible 2' Methadone, Clnzpm (?). Surg eval (+)/No further action. History of electrolyte imbalance (Acute) Neck pain on left side (Acute) with shoulder, upper back pain.. torticollis, radiating into left hip/leg Pulmonary nodule 1 cm or greater in diameter (Chronic) Therapeutic opioid induced constipation (Acute) Sphincter of Oddi dysfunction (Chronic) Abnormal CT scan, kidney (Acute) Intrahepatic bile duct dilation (Acute) Common bile duct dilatation (Chronic) Has been dilated for quite some time, now more-so. Normal LFTs. Known gallstones. Depression (Chronic) Elevated parathyroid hormone (Acute) Family history of coronary arteriosclerosis (Chronic) Father of [place] at 50, mother had [place] at 42 Severe anxiety with panic (Chronic) Medical History Multiple endocrine neoplasia type I CKD (chronic kidney disease) stage 2, GFR 60-89 ml/min GFR 64-65, with Hx FLORESITA and GFR < 45 Primary hyperparathyroidism Complex medical condition Serious electrolyte imbalances, with gynecomastia, possible MEN Dx, CKD and anemia with baseline anxiety and Hx PTSD. Hypocalcemia Anxiety Depression Hyperlipidemia Family history of multiple endocrine neoplasia, type 1 PTSD (post-traumatic stress disorder) Per pt. states no triggers at this time. Surgical History History of laparoscopic cholecystectomy (~11/2023) H/O parathyroidectomy Family History Mother Anxiety Asthma Depression Sister Anxiety Depression Father Cancer lung & stomach Depression Diabetes Hypertension MEN 1 (multiple endocrine neoplasia) Social History Smoking/Tobacco Use Status: Never Smoking risk assessment performed?: Yes Alcohol Intake: never Drug use: Current Sobriety Substance use type: former substance user, crack/cocaine, heroin and painkillers Details: stopped using substances for the past 4 years Adopted: No Caregiver/Support person: No Foster care: No Household members: none Housing: apartment Number of Children: 0 Communication Needs: None Education Level: high school Do you need help understanding health information?: Never 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 Pets and animals: Yes (Ally) Pets and animals: dog(s) Sexually active: No Do you think of yourself as: straight/heterosexual Current gender identity: male What is your relationship status?: How often do you talk on the phone with friends or family?: twice per week How often do you get together with friends or relatives?: never Do you belong to any clubs or organized social groups?: no Panel score (0-1 are the most socially isolated patients): 0 What type of physical activity do you participate in: walking Duration: 15-30 minutes/day Frequency: 5-6 times per week Maryam/Caodaism: Religious Special maryam needs: No Seatbelt use: always Helmet use: Yes Helmet use: always Drive intox or ride w/intox non cdl driver: No Do you feel safe at home: Yes Do you feel safe in your relationship?: Yes
== END 2025-03-07 21:47 | disposition home or self-care (01) ==
PROVIDERS: Emergency Provider Physician Assistant; PCP Physician Assistant
DX: M79.602 Pain in left arm (principal); Z79.01 Long term (current) use of anticoagulants
CPT/HCPCS: 99283 ×2; 93005; 93010

== ENCOUNTER 2025-03-08 04:49 | Outpatient (CLI) | payer MEDICAID, SELFPAY ==
[2025-03-09 10:23] LABS: Protein C, Functional 127 % (71-199); Protein S, Functional >150 % (73-156)
[2025-03-11 09:50] LABS: Factor V Leiden(R506Q) Mut Negative (Negative)
== END 2025-03-08 04:50 ==
LOC: LBO 03-09 04:49
PROVIDERS: PCP Physician Assistant; Visit Provider Internal Medicine Pulmonary Disease
DX: I26.99 Other pulmonary embolism without acute cor pulmonale (principal)
CPT/HCPCS: 36415; 81240; 81241; 83090; 85306; 86147; 85303

== ENCOUNTER 2025-03-08 19:23 | Emergency (ER) | payer OTHER, SELFPAY ==
--- NOTE | 2025-03-08 19:15 | RT.EKG_ITS ---
APPROVED REPORT Exam: Resting ECG Reason for Exam: heart palpipations Patient Location: E HR:92 bpm ECG Measurements Heart Rate 92 AXIS OK 174 P 36 QRSd 96 QRS 11 QT 366 T 47 QTc 452 Conclusion Sinus rhythm, rate 92 No interval abnormalities No STEMI Q wave lead III, unchanged from priors
[2025-03-08 19:26] VITALS: BP 128/81; PULSE 90; RESP 18; TEMP 37; O2SAT 94
--- NOTE | 2025-03-08 20:31 | W.ED.GENAD ---
Discharge Plan Disposition Patient Disposition: Home Condition: Stable Discharge Details Clinical Impression: Severe anxiety with panic Primary Care Provider: Sanjana Pritchett ED Provider: Tere Adams Home Meds and New Rx's Prescriptions: No Action gabapentin 300 mg capsule 300 mg PO BID Qty: 180 3RF omeprazole 40 mg capsule,delayed release(DR/EC) 40 mg PO DAILY Qty: 90 3RF lorazepam 1 mg tablet 1 mg PO DAILY PRN (Reason: anxiety) Qty: 10 0RF Rx Instructions: Use when considering ER visit cyclobenzaprine 10 mg tablet 10 mg PO TID PRN (Reason: muscle spasm) Qty: 30 3RF Eliquis 5 mg tablet 5 mg PO BID Qty: 60 6RF methadone 10 mg/5 mL solution 100 mg PO QAM calcitriol 0.5 mcg capsule 1 mcg PO .COMPLEX Qty: 270 3RF Rx Instructions: 1 mcg orally t2 tabs qam and 1 tab QHS; clonazepam 1 mg tablet 1 mg PO BID Qty: 10 0RF calcium carbonate [Tums] 200 mg calcium (500 mg) tablet,chewable 2,000 mg PO BID prochlorperazine maleate 5 mg tablet 5 mg PO TID PRN (Reason: acute nausea) Qty: 30 0RF polyethylene glycol 3350 17 gram powder in packet 17 g PO BID PRN magnesium gluconate 27 mg magnesium (500 mg) tablet 500 mg PO BID Rx Instructions: takes 500mg QAM and 1000mg QHS diclofenac sodium 1 % gel 2 g topical QID Qty: 50 0RF Rx Instructions: apply to single elbow, wrist or hand; for hand includes palm/fingers/back of hand oxycodone 10 mg tablet 10 mg PO Q6H PRNQty: 14 0RF Discharge Instructions Instructions: Panic Disorder (DC) Additional Instructions: You were seen in the emergency department today for evaluation after an episode of anxiety like symptoms with heart racing, feeling out of your body, etc. In our department a full physical examination performed, had an EKG that did not show any signs of arrhythmia, damage to your heart or other abnormalities to explain your symptoms. You received Tylenol for your neck stiffness, and a short course of take-home Ativan which used to be a home med. You should take this as needed for anxiety and can take it as often as every 6 hours. You will need to follow-up with your primary care provider at your scheduled visit tomorrow to discuss a longer term prescription of this medication. Please follow-up with your primary care provider in the next few days to discuss this visit and any symptoms that change, worsen, or persist. Thank you for allowing us to be part of your care. HPI General Mode of arrival: ambulatory. Date/Time Provider Initiated Documentation: 03/08/25 19:41. Limitations to Documentation: no limitations. Information obtained by: patient and old records reviewed. HPI Narrative: This is a 29-year-old male patient with a past medical history significant for M EN, JOSE JUAN, bilateral pulmonary embolisms recently diagnosed, now on Eliquis, complicated by left sided pulmonary infarct which has since improved. He is presenting today for evaluation of significant anxiety and heart racing. The patient has struggled with quite a bit of medical anxiety since his recent diagnosis, as his father from pulmonary embolisms, and he himself has been concerned about the new symptoms he is experiencing. He has been seen at our facility numerous times, with reassuring laboratory studies, EKGs, and imaging of his chest. He states he has not missed any doses of his Eliquis, and has been taking his clonazepam. Tonight he was in his normal state of health, and actually states that he felt like he had a good day, with a visit to the cloth dyer. He states that he was lying down to go to sleep and had a sudden episode where he felt like his heart was racing. States that it felt like he was injected with adrenaline and that he felt sort of out of his body. He has not experienced anxiety that felt quite like this before, states that typically if he is going to have a panic attack like this when he has some sort of warning or trigger that causes it to happen. The patient reports that his symptoms have largely resolved at this time, he initially had a heart rate at home of 115 but he has watched it downtrend into the 80s and 90s. He has not had any chest pain, shortness of breath, or any other symptoms of concern. He does note some bilateral jaw pain, which he attributes to grinding of his teeth/tense jaw in the setting of his anxiety. States that he used to have a prescription for Ativan, which he could take in addition to his clonazepam for severe anxiety, but he is in the process of switching primary care doctors and has not gotten a new prescription recently. His visit with his new primary care doctor is scheduled for tomorrow. Related Data Home Medications ?Medication ?Instructions ?Recorded ?Confirmed calcium carbonate (Tums) 2,000 mg PO BID 02/02/23 03/08/25 methadone 10 mg/5 mL oral solution 100 mg PO QAM 06/12/23 03/08/25 prochlorperazine maleate 5 mg 5 mg PO TID PRN acute nausea #30 09/06/23 03/08/25 tablet tabs gabapentin 300 mg capsule 300 mg PO BID #180 caps 06/01/24 03/08/25 calcitriol 0.5 mcg capsule 1 mcg (2 x 0.5 mcg) PO .COMPLEX 06/29/24 03/08/25 #270 caps omeprazole 40 mg capsule,delayed 40 mg PO DAILY #90 caps 07/27/24 03/08/25 release polyethylene glycol 3350 17 gram 17 g PO BID PRN 10/15/24 03/08/25 oral powder packet lorazepam 1 mg tablet 1 mg PO DAILY PRN anxiety #10 tabs 10/19/24 03/08/25 cyclobenzaprine 10 mg tablet 10 mg PO TID PRN muscle spasm #30 11/16/24 03/08/25 tabs magnesium gluconate 27 mg 500 mg PO BID 01/30/25 03/08/25 magnesium (500 mg) tablet diclofenac sodium 1 % topical gel 2 g topical QID #50 grams 02/03/25 03/08/25 clonazepam 1 mg tablet 1 mg PO BID #10 tabs 02/08/25 03/08/25 oxycodone 10 mg tablet 10 mg PO Q6H PRN #14 tabs 02/23/25 03/08/25 apixaban 5 mg tablet (Eliquis) 5 mg PO BID #60 tabs 03/08/25 03/08/25 Previous Rx's ?Medication ?Instructions ?Recorded prochlorperazine maleate 5 mg 5 mg PO TID PRN acute nausea #30 09/06/23 tablet tabs gabapentin 300 mg capsule 300 mg PO BID #180 caps 06/01/24 calcitriol 0.5 mcg capsule 1 mcg (2 x 0.5 mcg) PO .COMPLEX 06/29/24 #270 caps omeprazole 40 mg capsule,delayed 40 mg PO DAILY #90 caps 07/27/24 release lorazepam 1 mg tablet 1 mg PO DAILY PRN anxiety #10 tabs 10/19/24 cyclobenzaprine 10 mg tablet 10 mg PO TID PRN muscle spasm #30 11/16/24 tabs diclofenac sodium 1 % topical gel 2 g topical QID #50 grams 02/03/25 clonazepam 1 mg tablet 1 mg PO BID #10 tabs 02/08/25 oxycodone 10 mg tablet 10 mg PO Q6H PRN #14 tabs 02/23/25 apixaban 5 mg tablet (Eliquis) 5 mg PO BID #60 tabs 03/08/25 Allergies Allergy/AdvReac Type Severity Reaction Status Date / Time codeine Allergy Intermediate pass out Verified 03/08/25 12:53 Penicillins Allergy Skin Rash Verified 03/08/25 12:53 marijuana (cannabis) AdvReac Severe Paranoia Verified 03/08/25 12:53 amoxicillin AdvReac Intermediate Nausea Verified 03/08/25 12:53 dextromethorphan (From AdvReac Intermediate got Verified 03/08/25 12:53 NyQuil) really hot and sweaty doxylamine (From NyQuil) AdvReac Intermediate got Verified 03/08/25 12:53 really hot and sweaty pseudoephedrine (From NyQuil) AdvReac Intermediate got Verified 03/08/25 12:53 really hot and sweaty General Stated Complaint: Palpitatns ADRIANA: 3 Exam Narrative Exam Narrative: Gen: Awake and alert, in no apparent distress HEENT: Non-icteric sclera Neck: Supple Lungs: No apparent respiratory distress, normal respiratory effort. Lung sounds clear and equal bilaterally without wheezes, rhonchi, rales CV: Appears well perfused, heart with regular rate and rhythm, strong distal pulses, no murmurs Abdomen: Non-distended MSK: Moves 4 extremities without apparent limitation in ROM Skin: Visualized skin without rashes, cyanosis. Neuro: Normal Gait, no obvious focal deficits or facial asymmetry. Speaks in full, clear sentences. Psych: Endorsing anxiety Course Vital Signs Vital signs: Vital Signs Temperature 37.0 C 03/08/25 19: Pulse 90 03/08/25 19:26 Respiratory Rate 18 03/08/25 19: Blood Pressure 128/81 03/08/25 19:26 Pulse Oximetry 94 03/08/25 19:26 Temperature 37.0 C 03/08/25 19:26 Temperature Source Oral 03/08/25 19:26 Pulse 90 03/08/25 19:26 Respiratory Rate 18 03/08/25 19:26 Blood Pressure 128/81 03/08/25 19:26 Pulse Oximetry 94 03/08/25 19:26 Oxygen Delivery Method Room Air 03/08/25 19:26 Oxygen Flow Rate 0 03/08/25 19:26 Medical Decision Making This is a 29-year-old male patient presenting for evaluation of anxiety/panic attack and heart racing. Primary anxiety response was my primary concern given the patient's history of same in his report of similar symptoms in the past during panic attacks. Certainly the patient has a robust medical history, and I did consider etiologies such as ACS, arrhythmia, sequelae of his pulmonary embolism. He has no wheezing to suggest reactive airway disease exacerbation, no evidence of fluid overload on physical examination or history of heart failure, and no fever, cough or sputum production to increase my concern for infectious pathologies such as viral URI, pneumonia, bronchitis. EKG obtained and reviewed by myself, showing a normal sinus rhythm without evidence of ischemia, interval abnormality, or ectopy. No changes when compared to priors. I did an extended conversation with the patient regarding his symptoms today. He had lab work performed as recently as yesterday, which was within normal limits for his baseline. He also had a chest x-ray yesterday that did not show any acute abnormalities. I do not feel that there is significant benefit to repeating the studies today given the resolution of his symptoms and the reassuring EKG. I did discuss with him management of panic disorder and anxiety, and I am reassured that he has a visit with his outpatient providers tomorrow. I provided him with a take-home bottle with 3 Ativan to use tonight and tomorrow as needed for severe panic or anxiety symptoms. I counseled the patient to discuss this medication and any changes to his home meds that need to be made with his provider tomorrow. At this time, the patient has had a full medical evaluation and is safe for discharge to home. They are hemodynamically stable, ambulatory, and tolerating PO. They are understanding of the follow-up plan and return precautions. They left our facility without incident. Tere Adams MD Quality:SDOH Health Related Social Needs: Health related social needs daily activities PFSH All Active Problems (Updated 03/08/25 @ 20:32 by Tere Adams MD) Pulmonary infiltrates (Acute) Snoring (Acute) Pleural effusion (Acute) Arm pain, left (Acute) Chest pain (Acute) Rt groin pain (Acute) Bloody sputum (Acute) Left ankle sprain (Acute) Rash (Acute) Shortness of breath (Acute) Edema, peripheral (Acute) Anxiety (Chronic) Chest discomfort (Acute) Pulmonary embolism and infarction (Acute) Left pulmonary infiltrate on CXR (Acute) Bilateral pulmonary embolism (Acute) Tenderness of neck (Acute) Right elbow pain (Acute) Acute leg pain (Acute) Bronchitis (Acute) Well adult health check (Acute) Obstructive sleep apnea (Chronic) Metabolic dysfunction-associated fatty liver disease (MAFLD) (Acute) Fatty liver (Acute) IBS (irritable bowel syndrome) (Chronic) Obesity (Chronic) Migraine with aura (Acute) Testicle lump (Acute) Pes anserine bursitis (Acute) Left-sided Flower's palsy (Acute) Opiate dependence, continuous (Acute) 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 Possible 2' Methadone, Clnzpm (?). Surg eval (+)/No further action. History of electrolyte imbalance (Acute) Neck pain on left side (Acute) with shoulder, upper back pain.. torticollis, radiating into left hip/leg Pulmonary nodule 1 cm or greater in diameter (Chronic) Therapeutic opioid induced constipation (Acute) Sphincter of Oddi dysfunction (Chronic) Abnormal CT scan, kidney (Acute) Intrahepatic bile duct dilation (Acute) Common bile duct dilatation (Chronic) Has been dilated for quite some time, now more-so. Normal LFTs. Known gallstones. Depression (Chronic) Elevated parathyroid hormone (Acute) Family history of coronary arteriosclerosis (Chronic) Father of KS at 50, mother had KS at 42 Severe anxiety with panic (Chronic) Medical History Multiple endocrine neoplasia type I CKD (chronic kidney disease) stage 2, GFR 60-89 ml/min GFR 64-65, with Hx FLORESITA and GFR < 45 Primary hyperparathyroidism Complex medical condition Serious electrolyte imbalances, with gynecomastia, possible MEN Dx, CKD and anemia with baseline anxiety and Hx PTSD. Hypocalcemia Anxiety Depression Hyperlipidemia Family history of multiple endocrine neoplasia, type 1 PTSD (post-traumatic stress disorder) Per pt. states no triggers at this time. Surgical History History of laparoscopic cholecystectomy (~11/2023) H/O parathyroidectomy Family History Mother Anxiety Asthma Depression Sister Anxiety Depression Father Cancer lung & stomach Depression Diabetes Hypertension MEN 1 (multiple endocrine neoplasia) Social History Smoking/Tobacco Use Status: Never Smoking risk assessment performed?: Yes Alcohol Intake: never Drug use: Current Sobriety Substance use type: former substance user, crack/cocaine, heroin and painkillers Details: stopped using substances for the past 4 years Adopted: No Caregiver/Support person: No Foster care: No Household members: none Housing: apartment Number of Children: 0 Communication Needs: None Education Level: high school Do you need help understanding health information?: Never current occupation: [employer] Pets and animals: Yes (Ally) Pets and animals: dog(s) Sexually active: No Do you think of yourself as: straight/heterosexual Current gender identity: male What is your relationship status?: How often do you talk on the phone with friends or family?: twice per week How often do you get together with friends or relatives?: never Do you belong to any clubs or organized social groups?: no Panel score (0-1 are the most socially isolated patients): 0 What type of physical activity do you participate in: walking Duration: 15-30 minutes/day Frequency: 5-6 times per week Maryam/Jain: Gnosticism Special maryam needs: No Seatbelt use: always Helmet use: Yes Helmet use: always Drive intox or ride w/intox otr company driver: No Do you feel safe at home: Yes Do you feel safe in your relationship?: Yes
[2025-03-08] MEDS: LORazepam 1 MG TAB 3 MG PO (20:38)
[2025-03-08] MEDS: Acetaminophen 500 MG TAB 1000 MG PO (20:38)
== END 2025-03-08 21:21 | disposition home or self-care (01) ==
PROVIDERS: Emergency Provider Emergency Medicine; PCP Physician Assistant
DX: F41.0 Panic disorder [episodic paroxysmal anxiety] (principal)
CPT/HCPCS: 99283 ×2; 93005; 93010

== ENCOUNTER 2025-03-10 11:04 | Emergency (ER) | payer OTHER, SELFPAY ==
--- NOTE | 2025-03-10 11:00 | RT.EKG_ITS ---
APPROVED REPORT Exam: Resting ECG Reason for Exam: Chest pain Patient Location: E HR:94 bpm ECG Measurements Heart Rate 94 AXIS CO 170 P 44 QRSd 96 QRS 11 QT 346 T 43 QTc 433 Conclusion Sinus rhythm...normal P axis, V-rate 60- 99 Physician: No STEMI
[2025-03-10 11:10] VITALS: BP 129/81; PULSE 106; RESP 20; TEMP 36.7; O2SAT 94
--- NOTE | 2025-03-10 11:44 | W.ED.GENAD ---
Discharge Plan Disposition Patient Disposition: Home Condition: Good Discharge Details Clinical Impression: Left-sided chest pain Primary Care Provider: Sanjana Pritchett ED Provider: Richy Eagle Home Meds and New Rx's Prescriptions: No Action gabapentin 300 mg capsule 300 mg PO BID Qty: 180 3RF omeprazole 40 mg capsule,delayed release(DR/EC) 40 mg PO DAILY Qty: 90 3RF lorazepam 1 mg tablet 1 mg PO DAILY PRN (Reason: anxiety) Qty: 10 0RF Rx Instructions: Use when considering ER visit cyclobenzaprine 10 mg tablet 10 mg PO TID PRN (Reason: muscle spasm) Qty: 30 3RF Eliquis 5 mg tablet 5 mg PO BID Qty: 60 6RF methadone 10 mg/5 mL solution 100 mg PO QAM calcitriol 0.5 mcg capsule 1 mcg PO .COMPLEX Qty: 270 3RF Rx Instructions: 1 mcg orally t2 tabs qam and 1 tab QHS; clonazepam 1 mg tablet 1 mg PO BID Qty: 10 0RF calcium carbonate [Tums] 200 mg calcium (500 mg) tablet,chewable 2,000 mg PO BID prochlorperazine maleate 5 mg tablet 5 mg PO TID PRN (Reason: acute nausea) Qty: 30 0RF polyethylene glycol 3350 17 gram powder in packet 17 g PO BID PRN magnesium gluconate 27 mg magnesium (500 mg) tablet 500 mg PO BID Rx Instructions: takes 500mg QAM and 1000mg QHS diclofenac sodium 1 % gel 2 g topical QID Qty: 50 0RF Rx Instructions: apply to single elbow, wrist or hand; for hand includes palm/fingers/back of hand oxycodone 10 mg tablet 10 mg PO Q6H PRNQty: 14 0RF Discharge Instructions Instructions: Chest pain Additional Instructions: At this time there is no evidence to suggest pneumonia or significant cardiac abnormality. Please continue to aggressively use your incentive spirometer. Monitor closely for worsening of your cough or fever. If you notice any worsening of your symptoms, or any new symptoms such as vomiting, diarrhea, fever, chills, shortness of breath, chest pain, numbness, weakness, or fainting , please return immediately to the emergency department for reevaluation. Please follow up with your primary care provider as soon as possible for reassessment and reevaluation. As always, it was a pleasure participating in your medical care today. Referrals: Sanjana Pritchett [Primary Care Provider, Medicine] Discharge Data Discharge Date/Time-TO BE ENTERED AT DEPARTURE: 03/10/25 11:51 HPI General Date/Time Provider Initiated Documentation: 03/10/25 11:22. HPI Narrative: This is a 29-year-old male with a past medical history significant for anxiety, depression, high cholesterol, men type I, multiple electrolyte abnormalities with subsequent parathyroidectomy on 03/26/2022 at [facility] [place], PTSD, GERD, cholecystectomy 12/07, bilateral pulmonary embolisms with left-sided pulmonary infarct (diagnosed 02/2025) now on apixaban presents today for mild chest discomfort on the left-hand side, and mild cough. Patient has had the cough since his PE and pulmonary infarct. No significant productivity or change otherwise. Chest discomfort is described as mild ache in the left chest, worse with breathing, somewhat unchanged from prior symptoms that began with his PE. No other complaints. No trauma otherwise. Related Data Home Medications ?Medication ?Instructions ?Recorded ?Confirmed calcium carbonate (Tums) 2,000 mg PO BID 02/02/23 03/10/25 methadone 10 mg/5 mL oral solution 100 mg PO QAM 06/12/23 03/10/25 prochlorperazine maleate 5 mg 5 mg PO TID PRN acute nausea #30 09/06/23 03/10/25 tablet tabs gabapentin 300 mg capsule 300 mg PO BID #180 caps 06/01/24 03/10/25 calcitriol 0.5 mcg capsule 1 mcg (2 x 0.5 mcg) PO .COMPLEX 06/29/24 03/10/25 #270 caps omeprazole 40 mg capsule,delayed 40 mg PO DAILY #90 caps 07/27/24 03/10/25 release polyethylene glycol 3350 17 gram 17 g PO BID PRN 10/15/24 03/10/25 oral powder packet lorazepam 1 mg tablet 1 mg PO DAILY PRN anxiety #10 tabs 10/19/24 03/10/25 cyclobenzaprine 10 mg tablet 10 mg PO TID PRN muscle spasm #30 11/16/24 03/10/25 tabs magnesium gluconate 27 mg 500 mg PO BID 01/30/25 03/10/25 magnesium (500 mg) tablet diclofenac sodium 1 % topical gel 2 g topical QID #50 grams 02/03/25 03/10/25 clonazepam 1 mg tablet 1 mg PO BID #10 tabs 02/08/25 03/10/25 oxycodone 10 mg tablet 10 mg PO Q6H PRN #14 tabs 02/23/25 03/10/25 apixaban 5 mg tablet (Eliquis) 5 mg PO BID #60 tabs 03/08/25 03/10/25 Previous Rx's ?Medication ?Instructions ?Recorded prochlorperazine maleate 5 mg 5 mg PO TID PRN acute nausea #30 09/06/23 tablet tabs gabapentin 300 mg capsule 300 mg PO BID #180 caps 06/01/24 calcitriol 0.5 mcg capsule 1 mcg (2 x 0.5 mcg) PO .COMPLEX 06/29/24 #270 caps omeprazole 40 mg capsule,delayed 40 mg PO DAILY #90 caps 07/27/24 release lorazepam 1 mg tablet 1 mg PO DAILY PRN anxiety #10 tabs 10/19/24 cyclobenzaprine 10 mg tablet 10 mg PO TID PRN muscle spasm #30 11/16/24 tabs diclofenac sodium 1 % topical gel 2 g topical QID #50 grams 02/03/25 clonazepam 1 mg tablet 1 mg PO BID #10 tabs 02/08/25 oxycodone 10 mg tablet 10 mg PO Q6H PRN #14 tabs 02/23/25 apixaban 5 mg tablet (Eliquis) 5 mg PO BID #60 tabs 03/08/25 Allergies Allergy/AdvReac Type Severity Reaction Status Date / Time codeine Allergy Intermediate pass out Verified 03/10/25 11:09 Penicillins Allergy Skin Rash Verified 03/10/25 11:09 marijuana (cannabis) AdvReac Severe Paranoia Verified 03/10/25 11:09 amoxicillin AdvReac Intermediate Nausea Verified 03/10/25 11:09 dextromethorphan (From AdvReac Intermediate got Verified 03/10/25 11:09 NyQuil) really hot and sweaty doxylamine (From NyQuil) AdvReac Intermediate got Verified 03/10/25 11:09 really hot and sweaty pseudoephedrine (From NyQuil) AdvReac Intermediate got Verified 03/10/25 11:09 really hot and sweaty General Stated Complaint: Chest Pain ADRIANA: 3 Exam Narrative Exam Narrative: 1.Const: Well-nourished, Well-developed, appearing stated age 2.Eyes: PERRL, no conjunctival injection, and symmetrical lids. 3.ENT: Atraumatic external nose and ears. Moist MM. Neck: Symmetric, trachea midline, No thyromegaly. 4.CVS: +S1/S2, Peripheral pulses 2+ and equal in all extremities. Brisk capillary refill in all extremities. 5.RESP: Unlabored respiratory effort. Clear to auscultation bilaterally. No wheezes rales or rhonchi 6.GI: Soft, Nontender/Nondistended, No hepatosplenomegaly. No guarding or rebound. 7.MSK: Normocephalic/Atraumatic, Extremities w/o deformity or ttp No cyanosis or clubbing, Normal movement of all extremities 8.Skin: Warm, Dry. No rashes or lesions. 9.Neuro: security director II-XII grossly intact. Sensation grossly intact, no focal neurologic deficits. 10.Psych: (AAO) x3. Appropriate mood and affect Course Vital Signs Vital signs: Vital Signs Temperature 36.7 C 03/10/25 11:10 Pulse 106 H 03/10/25 11:10 Respiratory Rate 20 03/10/25 11:10 Blood Pressure 129/81 03/10/25 11:10 Pulse Oximetry 94 03/10/25 11:10 Temperature 36.7 C 03/10/25 11:10 Temperature Source Oral 03/10/25 11:10 Pulse 106 H 03/10/25 11:10 Respiratory Rate 20 03/10/25 11:10 Respiratory Effort Short of Breath, Labored 03/10/25 11:33 Blood Pressure 129/81 03/10/25 11:10 Blood Pressure Position Sitting 03/10/25 11:10 Pulse Oximetry 94 03/10/25 11:10 Oxygen Delivery Method Room Air 03/10/25 11:10 Oxygen Flow Rate 0 03/10/25 11:10 Pain Level 4 03/10/25 11:10 Medical Decision Making This is a 29-year-old male with a past medical history significant for anxiety, depression, high cholesterol, men type I, multiple electrolyte abnormalities with subsequent parathyroidectomy on 03/26/2022 at [facility] [place], PTSD, GERD, cholecystectomy 12/07, bilateral pulmonary embolisms with left-sided pulmonary infarct (diagnosed 02/2025) now on apixaban presents today for mild chest discomfort on the left-hand side, and mild cough. Patient has had the cough since his PE and pulmonary infarct. No significant productivity or change otherwise. Chest discomfort is described as mild ache in the left chest, worse with breathing, somewhat unchanged from prior symptoms that began with his PE. No other complaints. No trauma otherwise. Patient's most recent CT scan was 6 days ago which showed improvement of his pulmonary embolic disease, persistent very small left pleural effusion, and questionable minimal opacities likely secondary to poor inspiration. Physical exam at this time demonstrates notably clear sounding lungs, no wheezes rales or rhonchi. No reproducible chest wall pain or tenderness. EKG shows no abnormality. Bedside ultrasound shows no signs of right heart strain, cardiac abnormality. Ultrasound of the patient's lungs demonstrate no evidence of large pleural effusion at this time, and no evidence of B-lines or significant consolidation. Symptoms at this time appear clinically inconsistent with pneumonia, heart strain or other abnormality. No signs of pneumothorax. Recommend continued use of his incentive spirometer multiple times throughout the day. Discussed signs and symptoms that would be indicative of pneumonia. No indication for repeat CT imaging at this time. Patient otherwise stable for discharge. Discussed red flags which to return. I have extensively reviewed the treatment plan and discharge instructions with the patient. I have addressed all patient concerns at this time. The patient was made aware of what symptoms to monitor for that would warrant a return to the emergency department. Discussed the plan with the patient, they demonstrate verbal understanding and agreement with our assessment and plan at this time. The documentation in this chart was dictated using [employer] dictation software. Please excuse any dictation errors. Quality:SDOH Health Related Social Needs: Health related social needs daily activities PFSH All Active Problems (Updated 03/10/25 @ 11:45 by Richy Eagle DO) Left-sided chest pain (Acute) Pulmonary infiltrates (Acute) Snoring (Acute) Pleural effusion (Acute) Arm pain, left (Acute) Chest pain (Acute) Rt groin pain (Acute) Bloody sputum (Acute) Left ankle sprain (Acute) Rash (Acute) Shortness of breath (Acute) Edema, peripheral (Acute) Anxiety (Chronic) Chest discomfort (Acute) Pulmonary embolism and infarction (Acute) Left pulmonary infiltrate on CXR (Acute) Bilateral pulmonary embolism (Acute) Tenderness of neck (Acute) Right elbow pain (Acute) Acute leg pain (Acute) Bronchitis (Acute) Well adult health check (Acute) Obstructive sleep apnea (Chronic) Metabolic dysfunction-associated fatty liver disease (MAFLD) (Acute) Fatty liver (Acute) IBS (irritable bowel syndrome) (Chronic) Obesity (Chronic) Migraine with aura (Acute) Testicle lump (Acute) Pes anserine bursitis (Acute) Left-sided Flower's palsy (Acute) Opiate dependence, continuous (Acute) 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 Possible 2' Methadone, Clnzpm (?). Surg eval (+)/No further action. History of electrolyte imbalance (Acute) Neck pain on left side (Acute) with shoulder, upper back pain.. torticollis, radiating into left hip/leg Pulmonary nodule 1 cm or greater in diameter (Chronic) Therapeutic opioid induced constipation (Acute) Sphincter of Oddi dysfunction (Chronic) Abnormal CT scan, kidney (Acute) Intrahepatic bile duct dilation (Acute) Common bile duct dilatation (Chronic) Has been dilated for quite some time, now more-so. Normal LFTs. Known gallstones. Depression (Chronic) Elevated parathyroid hormone (Acute) Family history of coronary arteriosclerosis (Chronic) Father of OR at 50, mother had OR at 42 Severe anxiety with panic (Chronic) Medical History Multiple endocrine neoplasia type I CKD (chronic kidney disease) stage 2, GFR 60-89 ml/min GFR 64-65, with Hx FLORESITA and GFR < 45 Primary hyperparathyroidism Complex medical condition Serious electrolyte imbalances, with gynecomastia, possible MEN Dx, CKD and anemia with baseline anxiety and Hx PTSD. Hypocalcemia Anxiety Depression Hyperlipidemia Family history of multiple endocrine neoplasia, type 1 PTSD (post-traumatic stress disorder) Per pt. states no triggers at this time. Surgical History History of laparoscopic cholecystectomy (~11/2023) H/O parathyroidectomy Family History Mother Anxiety Asthma Depression Sister Anxiety Depression Father Cancer lung & stomach Depression Diabetes Hypertension MEN 1 (multiple endocrine neoplasia) Social History Smoking/Tobacco Use Status: Never Smoking risk assessment performed?: Yes Alcohol Intake: never Drug use: Current Sobriety Substance use type: former substance user, crack/cocaine, heroin and painkillers Details: stopped using substances for the past 4 years Adopted: No Caregiver/Support person: No Foster care: No Household members: none Housing: apartment Number of Children: 0 Communication Needs: None Education Level: high school Do you need help understanding health information?: Never current occupation: [employer] Pets and animals: Yes (Ally) Pets and animals: dog(s) Sexually active: No Do you think of yourself as: straight/heterosexual Current gender identity: male What is your relationship status?: How often do you talk on the phone with friends or family?: twice per week How often do you get together with friends or relatives?: never Do you belong to any clubs or organized social groups?: no Panel score (0-1 are the most socially isolated patients): 0 What type of physical activity do you participate in: walking Duration: 15-30 minutes/day Frequency: 5-6 times per week Maryam/Voodoo: Anabaptist Special maryam needs: No Seatbelt use: always Helmet use: Yes Helmet use: always Drive intox or ride w/intox subway train driver: No Do you feel safe at home: Yes Do you feel safe in your relationship?: Yes POCUS Exam (ED) Limited Cardiac Exam DATE OF EXAM: 03/10/25 TIME OF EXAM: 13:29 PROVIDER THAT PERFORMED THE STUDY: Richy Eagle IS THIS A REPEAT EXAM DURING THIS ENCOUNTER: no REASON FOR EXAM: Chest pain VISUALIZED STRUCTURES: Left atrium, Left ventricle, Right ventricle, Aortic valve, Mitral valve and Interventricular septum VIEW OBTAINED: Parasternal long-axis PERTINENT FINDINGS/IMPRESSION: No apparent abnormalities Exam complete Limited Thoracic Lung Exam DATE OF EXAM: 03/10/25 TIME OF EXAM: 13:29 PROVIDER THAT PERFORMED THE STUDY: Richy Eagle REASON FOR EXAM: Other (Chest discomfort/cough) indication: Cough/chest pain VISUALIZED STRUCTURES: right posterior and left posterior PERTINENT FINDINGS/
[2025-03-10 11:45] VITALS: PULSE 92; O2SAT 98
== END 2025-03-10 11:51 | disposition home or self-care (01) ==
PROVIDERS: Emergency Provider Student in an Organized Health Care Education/Training Program; PCP Physician Assistant
DX: R07.9 Chest pain, unspecified (principal); F32.A Depression, unspecified; F41.9 Anxiety disorder, unspecified; I26.99 Other pulmonary embolism without acute cor pulmonale
CPT/HCPCS: 99285; 99283; 76604; 93005; 93308; 93010

== ENCOUNTER 2025-03-13 11:33 | Emergency (ER) | payer OTHER, SELFPAY ==
[2025-03-13] VITALS (14 sets, daily range): BP systolic 119–126; BP diastolic 71–82; PULSE 73–115; RESP 20; TEMP 36.8; O2SAT 92–95
--- NOTE | 2025-03-13 11:30 | RT.EKG_ITS ---
APPROVED REPORT Exam: Resting ECG Reason for Exam: CP, hemoptysis. Patient Location: E HR:93 bpm ECG Measurements Heart Rate [address] 173 P 37 QRSd 99 QRS 26 QT 365 T 25 QTc 455 Conclusion Sinus rhythm...normal P axis, V-rate 60- 99. No ACS. No STEMI.
--- NOTE | 2025-03-13 11:54 | W.ED.GENAD ---
Discharge Plan Disposition Patient Disposition: Home Discharge Details Clinical Impression: Abdominal pain Primary Care Provider: Sanjana Pritchett ED Provider: Richy Oro Home Meds and New Rx's Prescriptions: New ondansetron 4 mg tablet,disintegrating 4 mg PO Q6H PRNQty: 10 0RF No Action gabapentin 300 mg capsule 300 mg PO BID Qty: 180 3RF omeprazole 40 mg capsule,delayed release(DR/EC) 40 mg PO DAILY Qty: 90 3RF lorazepam 1 mg tablet 1 mg PO DAILY PRN (Reason: anxiety) Qty: 10 0RF Rx Instructions: Use when considering ER visit cyclobenzaprine 10 mg tablet 10 mg PO TID PRN (Reason: muscle spasm) Qty: 30 3RF Eliquis 5 mg tablet 5 mg PO BID Qty: 60 6RF methadone 10 mg/5 mL solution 100 mg PO QAM calcitriol 0.5 mcg capsule 1 mcg PO .COMPLEX Qty: 270 3RF Rx Instructions: 1 mcg orally t2 tabs qam and 1 tab QHS; clonazepam 1 mg tablet 1 mg PO BID Qty: 10 0RF calcium carbonate [Tums] 200 mg calcium (500 mg) tablet,chewable 2,000 mg PO BID prochlorperazine maleate 5 mg tablet 5 mg PO TID PRN (Reason: acute nausea) Qty: 30 0RF polyethylene glycol 3350 17 gram powder in packet 17 g PO BID PRN magnesium gluconate 27 mg magnesium (500 mg) tablet 500 mg PO BID Rx Instructions: takes 500mg QAM and 1000mg QHS diclofenac sodium 1 % gel 2 g topical QID Qty: 50 0RF Rx Instructions: apply to single elbow, wrist or hand; for hand includes palm/fingers/back of hand oxycodone 10 mg tablet 10 mg PO Q6H PRNQty: 14 0RF Discharge Instructions Instructions: Abdominal Pain, Adult ED Referrals: Sanjana Pritchett [Primary Care Provider, Medicine] - 1 week HPI General Date/Time Provider Initiated Documentation: 03/13/25 11:53. HPI Narrative: This is a 29-year-old male with a past medical history significant for anxiety, depression, high cholesterol, men type I, multiple electrolyte abnormalities with [place] [facility] [place], GERD, cholecystectomy 12/07, bilateral pulmonary embolisms with left-sided pulmonary infarct (diagnosed 02/2025) now on apixaban. Patient presents today with diffuse abdominal discomfort. He describes feeling full as if he is blocked up. He states that this has been going on for a couple of weeks since beginning apixaban. He is slightly nauseated but has not been vomiting. Stools are loose and yellowish. No bloody stools. No fevers. No cough. No shortness of breath. He has not had anything raw or undercooked. No untreated water. He has a family member who has what appears to be a viral URI. No recent injuries. No other complaints or concerns. Patient currently rates his discomfort as a 5 out of 10. Related Data Home Medications ?Medication ?Instructions ?Recorded ?Confirmed calcium carbonate (Tums) 2,000 mg PO BID 02/02/23 03/13/25 methadone 10 mg/5 mL oral solution 100 mg PO QAM 06/12/23 03/13/25 prochlorperazine maleate 5 mg 5 mg PO TID PRN acute nausea #30 09/06/23 03/13/25 tablet tabs gabapentin 300 mg capsule 300 mg PO BID #180 caps 06/01/24 03/13/25 calcitriol 0.5 mcg capsule 1 mcg (2 x 0.5 mcg) PO .COMPLEX 06/29/24 03/13/25 #270 caps omeprazole 40 mg capsule,delayed 40 mg PO DAILY #90 caps 07/27/24 03/13/25 release polyethylene glycol 3350 17 gram 17 g PO BID PRN 10/15/24 03/13/25 oral powder packet lorazepam 1 mg tablet 1 mg PO DAILY PRN anxiety #10 tabs 10/19/24 03/13/25 cyclobenzaprine 10 mg tablet 10 mg PO TID PRN muscle spasm #30 11/16/24 03/13/25 tabs magnesium gluconate 27 mg 500 mg PO BID 01/30/25 03/13/25 magnesium (500 mg) tablet diclofenac sodium 1 % topical gel 2 g topical QID #50 grams 02/03/25 03/13/25 clonazepam 1 mg tablet 1 mg PO BID #10 tabs 02/08/25 03/13/25 oxycodone 10 mg tablet 10 mg PO Q6H PRN #14 tabs 02/23/25 03/13/25 apixaban 5 mg tablet (Eliquis) 5 mg PO BID #60 tabs 03/08/25 03/13/25 ondansetron 4 mg disintegrating 4 mg PO Q6H PRN #10 tabs 03/13/25 tablet Previous Rx's ?Medication ?Instructions ?Recorded prochlorperazine maleate 5 mg 5 mg PO TID PRN acute nausea #30 09/06/23 tablet tabs gabapentin 300 mg capsule 300 mg PO BID #180 caps 06/01/24 calcitriol 0.5 mcg capsule 1 mcg (2 x 0.5 mcg) PO .COMPLEX 06/29/24 #270 caps omeprazole 40 mg capsule,delayed 40 mg PO DAILY #90 caps 07/27/24 release lorazepam 1 mg tablet 1 mg PO DAILY PRN anxiety #10 tabs 10/19/24 cyclobenzaprine 10 mg tablet 10 mg PO TID PRN muscle spasm #30 11/16/24 tabs diclofenac sodium 1 % topical gel 2 g topical QID #50 grams 02/03/25 clonazepam 1 mg tablet 1 mg PO BID #10 tabs 02/08/25 oxycodone 10 mg tablet 10 mg PO Q6H PRN #14 tabs 02/23/25 apixaban 5 mg tablet (Eliquis) 5 mg PO BID #60 tabs 03/08/25 ondansetron 4 mg disintegrating 4 mg PO Q6H PRN #10 tabs 03/13/25 tablet Allergies Allergy/AdvReac Type Severity Reaction Status Date / Time codeine Allergy Intermediate pass out Verified 03/10/25 11:09 Penicillins Allergy Skin Rash Verified 03/10/25 11:09 marijuana (cannabis) AdvReac Severe Paranoia Verified 03/10/25 11:09 amoxicillin AdvReac Intermediate Nausea Verified 03/10/25 11:09 dextromethorphan (From AdvReac Intermediate got Verified 03/10/25 11:09 NyQuil) really hot and sweaty doxylamine (From NyQuil) AdvReac Intermediate got Verified 03/10/25 11:09 really hot and sweaty pseudoephedrine (From NyQuil) AdvReac Intermediate got Verified 03/10/25 11:09 really hot and sweaty General Stated Complaint: Abd Prob ADRIANA: 3 Review of Systems All systems reviewed & are unremarkable except as noted in HPI and below Constitutional Constitutional: Reports system reviewed and no additional complaints, except as documented, Denies fever(s), Denies weakness and Denies weight loss Eyes Eyes: Denies blurry vision ENT Ears, Nose, Mouth, and Throat: Denies sore throat Cardiovascular Cardiovascular: Denies chest pain, Denies palpitations and Denies dyspnea Respiratory Respiratory: Denies cough, Denies dyspnea and Denies wheezing Gastrointestinal Gastrointestinal: Reports abdominal pain, Denies melena, Reports bloating, Denies hematochezia, Reports diarrhea, Reports nausea and Denies vomiting Genitourinary Genitourinary: Denies hematuria and Denies dysuria Musculoskeletal Musculoskeletal: Denies back pain, Denies arthralgias and Denies numbness Neurologic Neurologic: Denies numbness and Denies weakness Psychiatric Psychiatric: Denies suicidal ideation Endocrine Endocrine: Denies palpitations Allergic/Immunologic Allergic/Immunologic: Denies wheezing Exam Const General: no acute distress and well groomed HENMT Mouth: oral mucosae normal and moist mucous membranes Throat: posterior oropharynx normal Eyes Conjunctivae: conjunctivae normal Sclera: sclerae normal Neck Neck: full ROM and No JVD Resp Effort & Inspection: normal respiratory effort Auscultation: clear to auscultation bilaterally Cardio Rate: regular rate Rhythm: regular rhythm Heart Sounds: no murmurs GI Palpation: soft and nontender (No focal areas of tenderness including where the patient indicates pain) Skin General skin exam: no rashes or lesions noted Neuro General: patient alert and patient oriented x3 Extrem General: normal to inspection and full ROM Psych Appearance: grossly normal Mental Status: mental status grossly normal Speech and Movement: speech and movement normal Affect: normal affect Thought Process: normal Course Vital Signs Vital signs: Vital Signs Temperature 36.8 C 03/13/25 11:36 Pulse 102 H 03/13/25 11:36 Respiratory Rate 20 03/13/25 11:36 Blood Pressure 119/82 03/13/25 11:36 Pulse Oximetry 92 03/13/25 11:36 Temperature 36.8 C 03/13/25 11:41 Temperature Source Temporal Artery Scan 03/13/25 11:41 Pulse 102 H 03/13/25 11:41 Respiratory Rate 20 03/13/25 11:41 Blood Pressure 119/82 03/13/25 11:41 Blood Pressure Position Sitting 03/13/25 11:41 Pulse Oximetry 92 03/13/25 11:41 Oxygen Delivery Method Room Air 03/13/25 11:41 Oxygen Flow Rate 0 03/13/25 11:41 Pain Level 5 03/13/25 11:41 Medical Decision Making This is a 29-year-old male presenting to the emergency department with chief complaint of abdominal discomfort. The patient was seen and examined by me. Ultras were reviewed and nursing notes were reviewed. Patient is well-known to this emergency department and has numerous visits, most recent 3 days ago for left-sided chest pain. Examination at this time is reassuring. Notably at the visit 3 days ago there were not complaints of abdominal pain or feelings of blockage. Patient was provided Zofran for his nausea. Labs reviewed by me are reassuring. This is particularly reassuring in the setting of a recent visit with another negative evaluation. X-ray of the abdomen reviewed by me did not show any acute abnormalities. No signs of obstruction or free air. Patient reports improvement of his symptoms with the Zofran. He will be given a prescription for the same for home. He is to follow-up with his primary care this coming week. He can return for any problems or call if he has questions or concerns. Medical Records Medical records reviewed: Yes I reviewed the patient's medical records. Lab Data Lab results reviewed: Yes I reviewed the patient's lab results. Quality:SDOH Health Related Social Needs: Health related social needs daily activities PFSH All Active Problems (Updated 03/13/25 @ 13:16 by Richy Oro MD) Abdominal pain (Acute) Left-sided chest pain (Acute) Pulmonary infiltrates (Acute) Snoring (Acute) Pleural effusion (Acute) Arm pain, left (Acute) Chest pain (Acute) Rt groin pain (Acute) Bloody sputum (Acute) Left ankle sprain (Acute) Rash (Acute) Shortness of breath (Acute) Edema, peripheral (Acute) Anxiety (Chronic) Chest discomfort (Acute) Pulmonary embolism and infarction (Acute) Left pulmonary infiltrate on CXR (Acute) Bilateral pulmonary embolism (Acute) Tenderness of neck (Acute) Right elbow pain (Acute) Acute leg pain (Acute) Bronchitis (Acute) Well adult health check (Acute) Obstructive sleep apnea (Chronic) Metabolic dysfunction-associated fatty liver disease (MAFLD) (Acute) Fatty liver (Acute) IBS (irritable bowel syndrome) (Chronic) Obesity (Chronic) Migraine with aura (Acute) Testicle lump (Acute) Pes anserine bursitis (Acute) Left-sided Flower's palsy (Acute) Opiate dependence, continuous (Acute) 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 Possible 2' Methadone, Clnzpm (?). Surg eval (+)/No further action. History of electrolyte imbalance (Acute) Neck pain on left side (Acute) with shoulder, upper back pain.. torticollis, radiating into left hip/leg Pulmonary nodule 1 cm or greater in diameter (Chronic) Therapeutic opioid induced constipation (Acute) Sphincter of Oddi dysfunction (Chronic) Abnormal CT scan, kidney (Acute) Intrahepatic bile duct dilation (Acute) Common bile duct dilatation (Chronic) Has been dilated for quite some time, now more-so. Normal LFTs. Known gallstones. Depression (Chronic) Elevated parathyroid hormone (Acute) Family history of coronary arteriosclerosis (Chronic) Father of CO at 50, mother had CO at 42 Severe anxiety with panic (Chronic) Medical History Multiple endocrine neoplasia type I CKD (chronic kidney disease) stage 2, GFR 60-89 ml/min GFR 64-65, with Hx FLORESITA and GFR < 45 Primary hyperparathyroidism Complex medical condition Serious electrolyte imbalances, with gynecomastia, possible MEN Dx, CKD and anemia with baseline anxiety and Hx PTSD. Hypocalcemia Anxiety Depression Hyperlipidemia Family history of multiple endocrine neoplasia, type 1 PTSD (post-traumatic stress disorder) Per pt. states no triggers at this time. Surgical History History of laparoscopic cholecystectomy (~11/2023) H/O parathyroidectomy Family History Mother Anxiety Asthma Depression Sister Anxiety Depression Father Cancer lung & stomach Depression Diabetes Hypertension MEN 1 (multiple endocrine neoplasia) Social History Smoking/Tobacco Use Status: Never Smoking risk assessment performed?: Yes Alcohol Intake: never Drug use: Current Sobriety Substance use type: former substance user, crack/cocaine, heroin and painkillers Details: stopped using substances for the past 4 years Adopted: No Caregiver/Support person: No Foster care: No Household members: none Housing: apartment Number of Children: 0 Communication Needs: None Education Level: high school Do you need help understanding health information?: Never current occupation: [employer] Pets and animals: Yes (Ally) Pets and animals: dog(s) Sexually active: No Do you think of yourself as: straight/heterosexual Current gender identity: male What is your relationship status?: How often do you talk on the phone with friends or family?: twice per week How often do you get together with friends or relatives?: never Do you belong to any clubs or organized social groups?: no Panel score (0-1 are the most socially isolated patients): 0 What type of physical activity do you participate in: walking Duration: 15-30 minutes/day Frequency: 5-6 times per week Maryam/Rastafari: Congregation Special maryam needs: No Seatbelt use: always Helmet use: Yes Helmet use: always Drive intox or ride w/intox class b driver: No Do you feel safe at home: Yes Do you feel safe in your relationship?: Yes
--- NOTE | 2025-03-13 12:00 | DI.RAD_ITS ---
Exam(s) XR ABD FLAT UPRIGHT PA CHEST EXAM: 2D digital imaging was performed. CLINICAL HISTORY: ? SBO. COMPARISON: CR XR CHEST 2V PA LATERAL from 03/07/2025 TECHNIQUE: Supine and upright abdomen and PA chest views were performed. FINDINGS: BOWEL GAS PATTERN: There is air seen throughout small and large bowel without significant abnormal dilatation or air-fluid levels. No free air. CALCIFICATIONS: No gross evidence of radiopaque calcifications. OSSEOUS STRUCTURES: Normal for age. OTHER FINDINGS: Surgical clip in low pelvis. Right upper quadrant surgical clips consistent with cholecystectomy. No organomegaly. LUNGS Clear. No pleural abnormality seen. HEART: Normal. MEDIASTINUM: Normal. OTHER FINDINGS: None. IMPRESSION: 1. There is air throughout small and large bowel without specific features for obstruction. 2. No radiopaque calculi. 3. No free air. 4. No acute pulmonary process. The preliminary [facility] report was reviewed. DATA REPOSITORY: RADIATION DOSE DELIVERED:
[2025-03-13] MEDS: Ondansetron 4 MG/2 ML VIAL IVP (12:07)
[2025-03-13 12:16] LABS: HCT 30.3 % (40.0-50.0); HGB 9.4 g/dL (13.5-17.5); MCH 25.8 pg (27.0-33.0); MCHC 31.0 % (32.0-36.0); MCV 83 fL (80-95); MPV 10.1 fL (8.0-11.0); Platelet Count 420 10^3/uL (130-400); RBC 3.64 10^6/uL (4.36-5.78); RDW 16.2 % (11.8-14.1); RDW-SD 49.7 fL; WBC 7.30 10^3/uL (4.4-10.8)
[2025-03-13 12:52] LABS: ALT 33 U/L (16-63); AST 23 U/L (15-37); Albumin 3.4 g/dL (3.4-5.0); Alkaline Phosphatase 132 U/L (46-116); Anion Gap 7.9 mmol/L (3-11); BUN 16 mg/dL (7-18); Bilirubin, Total 0.2 mg/dL (0.2-1.0); CO2 32.1 mmol/L (21.0-32.0); Calcium 9.2 mg/dL (8.5-10.1); Chloride 101 mmol/L (98-107); Estimated GFR 63.44 (mL/min/1.73m2); Glucose 93 mg/dL (74-106); Lipase 26 U/L (<78); Potassium 3.7 mmol/L (3.5-5.1); Sodium 141 mmol/L (136-145); Total Protein 8.1 g/dL (6.4-8.2)
[2025-03-13 12:53] LABS: Troponin I < 4 ng/L (<or=76)
--- NOTE | 2025-03-13 13:36 | DI.[facility]_ITS ---
PROCEDURE INFORMATION: Exam: XR Complete Acute Abdomen Series Including Chest Exam date and time: 03/13/2025 12:14 PM Age: 29 years old Clinical indication: Other: SOB; Prior surgery; Surgery date: 6+ months; Surgery type: Cholecystectomy TECHNIQUE: Imaging protocol: Radiologic exam. Complete acute abdomen series, including 2 or more views of the abdomen and a single view chest. COMPARISON: CR XR CHEST 2V PA LATERAL 03/07/2025 12:35 PM FINDINGS: Lungs: Normal. No consolidation. Pleural spaces: Normal. No pleural effusions. No pneumothorax. Heart/Mediastinum: Normal. No cardiomegaly. Gastrointestinal tract: Air in the colon. Air in loops of small bowel without miguelina dilatation.. Intraperitoneal space: Normal. No free air. Organs: Surgical clips in the right upper quadrant consistent with prior cholecystectomy Bones/joints: Normal. No acute fracture. Soft tissues: Normal. IMPRESSION: Air in loops of small bowel without miguelina dilatation.. Dictated and Authenticated by: Mary Alcaraz MD. Orderin Preethi Lockhart MD
== END 2025-03-13 13:22 | disposition home or self-care (01) ==
PROVIDERS: Emergency Provider Emergency Medicine; PCP Physician Assistant
DX: R11.0 Nausea; R10.9 Unspecified abdominal pain
CPT/HCPCS: 99284 ×2; 96374; 36415; 80053; 83690; 85027; 93005; 74022; 83605; 84484; 93010; J2405

== ENCOUNTER 2025-03-14 08:08 | Emergency (ER) | payer OTHER, SELFPAY ==
--- NOTE | 2025-03-14 08:00 | RT.EKG_ITS ---
APPROVED REPORT Exam: Resting ECG Reason for Exam: Chest Pain Patient Location: E HR:106 bpm ECG Measurements Heart Rate 106 AXIS AL 169 P 46 QRSd 97 QRS 15 QT 342 T 56 QTc 454 Conclusion Sinus tachycardia...rate> 99 No Occlusion PR
[2025-03-14 08:14] VITALS: BP 134/72; PULSE 114; RESP 16; TEMP 36; O2SAT 94
--- NOTE | 2025-03-14 08:25 | W.ED.GENAD ---
Discharge Plan Disposition Patient Disposition: Home Discharge Details Clinical Impression: Chest pain, unspecified Primary Care Provider: Sanjana Pritchett ED Provider: Pedro Wolfe Kasbeer Meds and New Rx's Prescriptions: Continued gabapentin 300 mg capsule 300 mg PO BID Qty: 180 3RF omeprazole 40 mg capsule,delayed release(DR/EC) 40 mg PO DAILY Qty: 90 3RF lorazepam 1 mg tablet 1 mg PO DAILY PRN (Reason: anxiety) Qty: 10 0RF Rx Instructions: Use when considering ER visit cyclobenzaprine 10 mg tablet 10 mg PO TID PRN (Reason: muscle spasm) Qty: 30 3RF Eliquis 5 mg tablet 5 mg PO BID Qty: 60 6RF methadone 10 mg/5 mL solution 100 mg PO QAM calcitriol 0.5 mcg capsule 1 mcg PO .COMPLEX Qty: 270 3RF Rx Instructions: 1 mcg orally t2 tabs qam and 1 tab QHS; clonazepam 1 mg tablet 1 mg PO BID Qty: 10 0RF calcium carbonate [Tums] 200 mg calcium (500 mg) tablet,chewable 2,000 mg PO BID prochlorperazine maleate 5 mg tablet 5 mg PO TID PRN (Reason: acute nausea) Qty: 30 0RF polyethylene glycol 3350 17 gram powder in packet 17 g PO BID PRN magnesium gluconate 27 mg magnesium (500 mg) tablet 500 mg PO BID Rx Instructions: takes 500mg QAM and 1000mg QHS diclofenac sodium 1 % gel 2 g topical QID Qty: 50 0RF Rx Instructions: apply to single elbow, wrist or hand; for hand includes palm/fingers/back of hand ondansetron 4 mg tablet,disintegrating 4 mg PO Q6H PRNQty: 10 0RF oxycodone 10 mg tablet 10 mg PO Q6H PRNQty: 14 0RF Discharge Instructions Instructions: Chest Pain (DC) Additional Instructions: You are seen in the emergency department for your chest pain. Your blood work shows no sign of any damage to your heart. Your EKG is also reassuring against a heart attack. As we discussed if you develop worsening chest pain if you pass out or if you have any other concerns please return to the emergency department. Otherwise please follow-up with your primary care provider. Discharge Data Discharge Date/Time-TO BE ENTERED AT DEPARTURE: 03/14/25 11:51 HPI General Date/Time Provider Initiated Documentation: 03/14/25 08:25. HPI Narrative: MDM This is an overall well-appearing mildly tachycardic and afebrile 29-year-old male with history of PE and chest fullness for which patient undergo troponin testing in the setting of his ECG showing sinus tachycardia at a rate of 106. Normal axis. Intervals within normal limits. No ST segment abnormalities. No T wave inversions. I considered PE however the patient has been adherent with his apixaban and his mild tachycardia is similar to prior. He is not hypoxic. He is not complaining of pleuritic pain and he has had multiple CTs in the past month I do not feel he requires any additional CT scan at this point in time. He has no rash to chest to suggest zoster. No tearing quality to his pain to suggest aortic dissection. He is not a dialysis patient and he is not hypotensive so I am not concerned for tamponade. Has not been vomiting to suggest increased risk of esophageal rupture. No fevers nor cough to suggest pneumonia. Equal breath sounds and no trauma so my suspicion is low for pneumothorax. Given no recent PICC lines nor history of IV drug use my suspicion for left upper extremity DVT is low so I did not feel patient required a left upper extremity duplex study. X-ray obtained yesterday which I will repeat today. Will reassess following troponin. 10:45 AM Patient had 2 negative troponins in the ED. Base metabolic panel showing CKD no superimposed FLORESITA. No acute electrolyte abnormalities. CBC with no leukocytosis. Mild persistent normocytic anemia. Mild thrombocytosis. Chest x-ray with no acute cardiopulmonary process. Patient had minimal increased left perihilar markings which were mildly increased compared to prior. At the time of discharge patient had a normal heart rate. He had no hypoxia and was not complaining of cough so I was not suspicious for pneumonia. I considered whether or not patient could be withdrawing from his benzodiazepine as he has not taken this in 4 days. He is on 1 mg p.o. daily as needed. Given that he was not hypertensive nor markedly tachycardic I was not suspicious for benzodiazepine withdrawal. I met with the patient. We discussed that he should return if he develops shortness of breath or any syncope. He understood his return indications and was discharged with an empiric trial of protected outpatient management. HPI This is a patient with a history of blood clots presenting with chest pain. The patient sought medical attention last night due to persistent chest pain, which he describes as a sensation of fullness. The discomfort was severe enough to radiate into his arm, prompting his visit. He also reports a lump in his arm, scheduled for an ultrasound tomorrow to rule out a blood clot. He has been compliant with his blood thinner medication and has not experienced any vomiting. However, he does report feeling lightheaded after taking Eliquis. He has not had any large IVs in his arms or PICC lines, except for a significant one last night. He has no history of IV drug use. The patient is uncertain whether this discomfort is a symptom of his anxiety or a manifestation of his existing blood clots. He has been without his lorazepam since 03/10/2025, which [facility] The patient also reports abdominal pain, which has slightly subsided but remains present. Exam General: Well-appearing in no acute distress speaking in complete sentences. Head: Normocephalic, atraumatic. Eye: Extraocular eye movements intact. No conjunctival injection. No scleral icterus. Ear, nose, mouth, throat: Grossly normal inspection. Normal voice, handling secretions normally. Neck: Trachea midline. Cardiovascular: Well-perfused distal extremities. Rapid regular rate Respiratory: Nonlabored respiration. Clear lungs bilaterally. No wheezes. Gastrointestinal: Nondistended abdomen. Musculoskeletal: No edema. Moving all 4 extremities spontaneously. Left upper extremity with no palpable cords. Left hand warm well-perfused. Skin: Normal for age and race, grossly normal temperature and turgor. No acute rash. Neurologic: Alert and appropriate, no apparent acute deficits. Psychiatric: Mood and manner are appropriate. Grooming and personal hygiene are appropriate. Related Data Home Medications ?Medication ?Instructions ?Recorded ?Confirmed calcium carbonate (Tums) 2,000 mg PO BID 02/02/23 03/14/25 methadone 10 mg/5 mL oral solution 100 mg PO QAM 06/12/23 03/14/25 prochlorperazine maleate 5 mg 5 mg PO TID PRN acute nausea #30 09/06/23 03/14/25 tablet tabs gabapentin 300 mg capsule 300 mg PO BID #180 caps 06/01/24 03/14/25 calcitriol 0.5 mcg capsule 1 mcg (2 x 0.5 mcg) PO .COMPLEX 06/29/24 03/14/25 #270 caps omeprazole 40 mg capsule,delayed 40 mg PO DAILY #90 caps 07/27/24 03/14/25 release polyethylene glycol 3350 17 gram 17 g PO BID PRN 10/15/24 03/14/25 oral powder packet lorazepam 1 mg tablet 1 mg PO DAILY PRN anxiety #10 tabs 10/19/24 03/14/25 cyclobenzaprine 10 mg tablet 10 mg PO TID PRN muscle spasm #30 11/16/24 03/14/25 tabs magnesium gluconate 27 mg 500 mg PO BID 01/30/25 03/14/25 magnesium (500 mg) tablet diclofenac sodium 1 % topical gel 2 g topical QID #50 grams 02/03/25 03/14/25 clonazepam 1 mg tablet 1 mg PO BID #10 tabs 02/08/25 03/14/25 oxycodone 10 mg tablet 10 mg PO Q6H PRN #14 tabs 02/23/25 03/14/25 apixaban 5 mg tablet (Eliquis) 5 mg PO BID #60 tabs 03/08/25 03/14/25 ondansetron 4 mg disintegrating 4 mg PO Q6H PRN #10 tabs 03/13/25 03/14/25 tablet Previous Rx's ?Medication ?Instructions ?Recorded prochlorperazine maleate 5 mg 5 mg PO TID PRN acute nausea #30 09/06/23 tablet tabs gabapentin 300 mg capsule 300 mg PO BID #180 caps 06/01/24 calcitriol 0.5 mcg capsule 1 mcg (2 x 0.5 mcg) PO .COMPLEX 06/29/24 #270 caps omeprazole 40 mg capsule,delayed 40 mg PO DAILY #90 caps 07/27/24 release lorazepam 1 mg tablet 1 mg PO DAILY PRN anxiety #10 tabs 10/19/24 cyclobenzaprine 10 mg tablet 10 mg PO TID PRN muscle spasm #30 11/16/24 tabs diclofenac sodium 1 % topical gel 2 g topical QID #50 grams 02/03/25 clonazepam 1 mg tablet 1 mg PO BID #10 tabs 02/08/25 oxycodone 10 mg tablet 10 mg PO Q6H PRN #14 tabs 02/23/25 apixaban 5 mg tablet (Eliquis) 5 mg PO BID #60 tabs 03/08/25 ondansetron 4 mg disintegrating 4 mg PO Q6H PRN #10 tabs 03/13/25 tablet Allergies Allergy/AdvReac Type Severity Reaction Status Date / Time codeine Allergy Intermediate pass out Verified 03/14/25 08:18 Penicillins Allergy Skin Rash Verified 03/14/25 08:18 marijuana (cannabis) AdvReac Severe Paranoia Verified 03/14/25 08:18 amoxicillin AdvReac Intermediate Nausea Verified 03/14/25 08:18 dextromethorphan (From AdvReac Intermediate got Verified 03/14/25 08:18 NyQuil) really hot and sweaty doxylamine (From NyQuil) AdvReac Intermediate got Verified 03/14/25 08:18 really hot and sweaty pseudoephedrine (From NyQuil) AdvReac Intermediate got Verified 03/14/25 08:18 really hot and sweaty General Stated Complaint: Chest Pain ADRIANA: 3 Course Vital Signs Vital signs: Vital Signs Temperature 36.0 C L 03/14/25 08:14 Pulse 114 H 03/14/25 08:14 Respiratory Rate 16 03/14/25 08:14 Blood Pressure 134/72 03/14/25 08:14 Pulse Oximetry 94 03/14/25 08:14 Temperature 36.0 C L 03/14/25 08:14 Temperature Source Tympanic 03/14/25 08:14 Pulse 114 H 03/14/25 08:14 Respiratory Rate 16 03/14/25 08:14 Blood Pressure 134/72 03/14/25 08:14 Blood Pressure Position Sitting 03/14/25 08:14 Pulse Oximetry 94 03/14/25 08:14 Oxygen Delivery Method Room Air 03/14/25 08:14 Oxygen Flow Rate 0 03/14/25 08:14 Medical Decision Making Quality:SDOH Health Related Social Needs: Health related social needs daily activities PFSH All Active Problems (Updated 03/14/25 @ 10:50 by Pedro Wolfe MD) Chest pain, unspecified (Acute) Abdominal pain (Acute) Left-sided chest pain (Acute) Pulmonary infiltrates (Acute) Snoring (Acute) Pleural effusion (Acute) Arm pain, left (Acute) Chest pain (Acute) Rt groin pain (Acute) Bloody sputum (Acute) Left ankle sprain (Acute) Rash (Acute) Shortness of breath (Acute) Edema, peripheral (Acute) Anxiety (Chronic) Chest discomfort (Acute) Pulmonary embolism and infarction (Acute) Left pulmonary infiltrate on CXR (Acute) Bilateral pulmonary embolism (Acute) Tenderness of neck (Acute) Right elbow pain (Acute) Acute leg pain (Acute) Bronchitis (Acute) Well adult health check (Acute) Obstructive sleep apnea (Chronic) Metabolic dysfunction-associated fatty liver disease (MAFLD) (Acute) Fatty liver (Acute) IBS (irritable bowel syndrome) (Chronic) Obesity (Chronic) Migraine with aura (Acute) Testicle lump (Acute) Pes anserine bursitis (Acute) Left-sided Flower's palsy (Acute) Opiate dependence, continuous (Acute) 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 Possible 2' Methadone, Clnzpm (?). Surg eval (+)/No further action. History of electrolyte imbalance (Acute) Neck pain on left side (Acute) with shoulder, upper back pain.. torticollis, radiating into left hip/leg Pulmonary nodule 1 cm or greater in diameter (Chronic) Therapeutic opioid induced constipation (Acute) Sphincter of Oddi dysfunction (Chronic) Abnormal CT scan, kidney (Acute) Intrahepatic bile duct dilation (Acute) Common bile duct dilatation (Chronic) Has been dilated for quite some time, now more-so. Normal LFTs. Known gallstones. Depression (Chronic) Elevated parathyroid hormone (Acute) Family history of coronary arteriosclerosis (Chronic) Father of ME at 50, mother had ME at 42 Severe anxiety with panic (Chronic) Medical History Multiple endocrine neoplasia type I CKD (chronic kidney disease) stage 2, GFR 60-89 ml/min GFR 64-65, with Hx FLORESITA and GFR < 45 Primary hyperparathyroidism Complex medical condition Serious electrolyte imbalances, with gynecomastia, possible MEN Dx, CKD and anemia with baseline anxiety and Hx PTSD. Hypocalcemia Anxiety Depression Hyperlipidemia Family history of multiple endocrine neoplasia, type 1 PTSD (post-traumatic stress disorder) Per pt. states no triggers at this time. Surgical History History of laparoscopic cholecystectomy (~11/2023) H/O parathyroidectomy Family History Mother Anxiety Asthma Depression Sister Anxiety Depression Father Cancer lung & stomach Depression Diabetes Hypertension MEN 1 (multiple endocrine neoplasia) Social History Smoking/Tobacco Use Status: Never Smoking risk assessment performed?: Yes Alcohol Intake: never Drug use: Current Sobriety Substance use type: former substance user, crack/cocaine, heroin and painkillers Details: stopped using substances for the past 4 years Adopted: No Caregiver/Support person: No Foster care: No Household members: none Housing: apartment Number of Children: 0 Communication Needs: None Education Level: high school Do you need help understanding health information?: Never current occupation: [employer] Pets and animals: Yes (Ally) Pets and animals: dog(s) Sexually active: No Do you think of yourself as: straight/heterosexual Current gender identity: male What is your relationship status?: How often do you talk on the phone with friends or family?: twice per week How often do you get together with friends or relatives?: never Do you belong to any clubs or organized social groups?: no Panel score (0-1 are the most socially isolated patients): 0 What type of physical activity do you participate in: walking Duration: 15-30 minutes/day Frequency: 5-6 times per week Maryam/Hoahaoism: Restoration Special maryam needs: No Seatbelt use: always Helmet use: Yes Helmet use: always Drive intox or ride w/intox passenger coach driver: No Do you feel safe at home: Yes Do you feel safe in your relationship?: Yes
[2025-03-14 08:27] VITALS: BP 115/63; PULSE 109; RESP 16; TEMP 37.5
[2025-03-14 08:55] LABS: Abs Immature Grans 0.03 10^3/uL (0.0-0.06); HCT 30.8 % (40.0-50.0); HGB 9.4 g/dL (13.5-17.5); Immature Grans % 0.4 %; MCH 25.5 pg (27.0-33.0); MCHC 30.5 % (32.0-36.0); MCV 84 fL (80-95); MPV 10.0 fL (8.0-11.0); Platelet Count 411 10^3/uL (130-400); RBC 3.69 10^6/uL (4.36-5.78); RDW 16.4 % (11.8-14.1); RDW-SD 49.7 fL; WBC 6.99 10^3/uL (4.4-10.8)
--- NOTE | 2025-03-14 09:00 | DI.RAD_ITS ---
Exam(s) XR CHEST 2V PA LATERAL EXAM: XR CHEST 2V PA LATERAL CLINICAL HISTORY: Chest pain. TECHNIQUE: 2D digital imaging was performed. COMPARISON: CT CT CHEST PE CTA from 03/04/2025 CR XR CHEST 2V PA LATERAL from 03/07/2025 CR,XR XR ABD FLAT UPRIGHT PA CHEST from 03/13/2025 FINDINGS: 2 views: Heart size is normal. The mediastinum is not widened. Right lung is clear. There are mild increased left parahilar markings, possibly within normal limits. There are no pleural effusions. No fractures. No pneumothorax. IMPRESSION: Minimally increased left parahilar markings comp os within normal limits. There are no obvious pleural effusions. DATA REPOSITORY: RADIATION DOSE DELIVERED:
[2025-03-14 09:27] LABS: Anion Gap 6.6 mmol/L (3-11); BUN 11 mg/dL (7-18); CO2 31.4 mmol/L (21.0-32.0); Calcium 9.0 mg/dL (8.5-10.1); Chloride 101 mmol/L (98-107); Estimated GFR 54.59 (mL/min/1.73m2); Glucose 96 mg/dL (74-106); Potassium 4.0 mmol/L (3.5-5.1); Sodium 139 mmol/L (136-145)
[2025-03-14 09:28] LABS: Troponin I < 4 ng/L (<or=76)
[2025-03-14 10:34] LABS: Troponin I < 4 ng/L (<or=76)
[2025-03-14 11:36] VITALS: BP 118/65; PULSE 85; RESP 16; O2SAT 96
== END 2025-03-14 11:51 | disposition home or self-care (01) ==
PROVIDERS: Emergency Provider Emergency Medicine; PCP Physician Assistant
DX: R07.9 Chest pain, unspecified (principal); Z86.718 Personal history of other venous thrombosis and embolism
CPT/HCPCS: 99283; 99284; 36415; 80048; 93005; 71046; 84484; 85025; 93010

== ENCOUNTER 2025-03-15 14:11 | Emergency (ER) | payer OTHER, SELFPAY ==
[2025-03-15 14:13] VITALS: BP 132/86; PULSE 110; RESP 18; TEMP 37.7; O2SAT 98
--- NOTE | 2025-03-15 16:04 | W.ED.GENAD ---
Discharge Plan Disposition Patient Disposition: Home Condition: Good Discharge Details Clinical Impression: Abdominal pain Primary Care Provider: Sanjana Pritchett ED Provider: Santiago Ibarra [place] Meds and New Rx's Prescriptions: New famotidine 20 mg tablet 20 mg PO BID Qty: 30 0RF sucralfate 1 gram tablet 1 g PO QACHS Qty: 90 0RF Continued gabapentin 300 mg capsule 300 mg PO BID Qty: 180 3RF omeprazole 40 mg capsule,delayed release(DR/EC) 40 mg PO DAILY Qty: 90 3RF lorazepam 1 mg tablet 1 mg PO DAILY PRN (Reason: anxiety) Qty: 10 0RF Rx Instructions: Use when considering ER visit cyclobenzaprine 10 mg tablet 10 mg PO TID PRN (Reason: muscle spasm) Qty: 30 3RF Eliquis 5 mg tablet 5 mg PO BID Qty: 60 6RF methadone 10 mg/5 mL solution 100 mg PO QAM calcitriol 0.5 mcg capsule 1 mcg PO .COMPLEX Qty: 270 3RF Rx Instructions: 1 mcg orally t2 tabs qam and 1 tab QHS; clonazepam 1 mg tablet 1 mg PO BID Qty: 10 0RF calcium carbonate [Tums] 200 mg calcium (500 mg) tablet,chewable 2,000 mg PO BID prochlorperazine maleate 5 mg tablet 5 mg PO TID PRN (Reason: acute nausea) Qty: 30 0RF polyethylene glycol 3350 17 gram powder in packet 17 g PO BID PRN magnesium gluconate 27 mg magnesium (500 mg) tablet 500 mg PO BID Rx Instructions: takes 500mg QAM and 1000mg QHS diclofenac sodium 1 % gel 2 g topical QID Qty: 50 0RF Rx Instructions: apply to single elbow, wrist or hand; for hand includes palm/fingers/back of hand oxycodone 10 mg tablet 10 mg PO Q6H PRNQty: 14 0RF Changed ondansetron 4 mg tablet,disintegrating 4 mg PO Q8H PRNQty: 20 0RF Discharge Instructions Additional Instructions: You were seen for continued abdominal pain and vomiting after eating which has been present and worsening over a week. Previous abdominal x-ray and laboratory studies done over the weekend has been reassuring. Your abdominal exam today is also reassuring. We we will try adding famotidine and sucralfate to your regimen for acid reduction and control. You may also try taking the ondansetron 30 to 60 minutes prior to eating. I would recommend a bland diet for the time being. Please follow-up with primary care within the week. Return to ED for constant/worsening pain, persistent vomiting, vomiting of blood, fever, other concerns. Referrals: Sanjana Pritchett [Primary Care Provider, Medicine] Discharge Data Discharge Date/Time-TO BE ENTERED AT DEPARTURE: 03/15/25 16:35 HPI General Mode of arrival: ambulatory. Date/Time Provider Initiated Documentation: 03/15/25 15:39. Limitations to Documentation: no limitations. Information obtained by: patient, RN notes reviewed and old records reviewed. HPI Narrative: Patient returns to ED once again with epigastric abdominal pain. Now reports vomiting anytime he tries to eat. States that after he vomits pain resolves and he does fine. However, his developed pain and vomiting after breakfast and lunch today. Currently no pain. There is been no hematemesis. He was here 2 days ago for abdominal pain and 5 days ago as well as yesterday for chest pain. He has had no fever. He has no diarrhea. He is status postcholecystectomy in the past. Related Data Home Medications ?Medication ?Instructions ?Recorded ?Confirmed calcium carbonate (Tums) 2,000 mg PO BID 02/02/23 03/15/25 methadone 10 mg/5 mL oral solution 100 mg PO QAM 06/12/23 03/15/25 prochlorperazine maleate 5 mg 5 mg PO TID PRN acute nausea #30 09/06/23 03/15/25 tablet tabs gabapentin 300 mg capsule 300 mg PO BID #180 caps 06/01/24 03/15/25 calcitriol 0.5 mcg capsule 1 mcg (2 x 0.5 mcg) PO .COMPLEX 06/29/24 03/15/25 #270 caps omeprazole 40 mg capsule,delayed 40 mg PO DAILY #90 caps 07/27/24 03/15/25 release polyethylene glycol 3350 17 gram 17 g PO BID PRN 10/15/24 03/15/25 oral powder packet lorazepam 1 mg tablet 1 mg PO DAILY PRN anxiety #10 tabs 10/19/24 03/15/25 cyclobenzaprine 10 mg tablet 10 mg PO TID PRN muscle spasm #30 11/16/24 03/15/25 tabs magnesium gluconate 27 mg 500 mg PO BID 01/30/25 03/15/25 magnesium (500 mg) tablet diclofenac sodium 1 % topical gel 2 g topical QID #50 grams 02/03/25 03/15/25 clonazepam 1 mg tablet 1 mg PO BID #10 tabs 02/08/25 03/15/25 oxycodone 10 mg tablet 10 mg PO Q6H PRN #14 tabs 02/23/25 03/15/25 apixaban 5 mg tablet (Eliquis) 5 mg PO BID #60 tabs 03/08/25 03/15/25 famotidine 20 mg tablet 20 mg PO BID #30 tabs 03/15/25 ondansetron 4 mg disintegrating 4 mg PO Q8H PRN #20 tabs 03/15/25 tablet sucralfate 1 gram tablet 1 g PO QACHS #90 tabs 03/15/25 Previous Rx's ?Medication ?Instructions ?Recorded prochlorperazine maleate 5 mg 5 mg PO TID PRN acute nausea #30 09/06/23 tablet tabs gabapentin 300 mg capsule 300 mg PO BID #180 caps 06/01/24 calcitriol 0.5 mcg capsule 1 mcg (2 x 0.5 mcg) PO .COMPLEX 06/29/24 #270 caps omeprazole 40 mg capsule,delayed 40 mg PO DAILY #90 caps 07/27/24 release lorazepam 1 mg tablet 1 mg PO DAILY PRN anxiety #10 tabs 10/19/24 cyclobenzaprine 10 mg tablet 10 mg PO TID PRN muscle spasm #30 11/16/24 tabs diclofenac sodium 1 % topical gel 2 g topical QID #50 grams 02/03/25 clonazepam 1 mg tablet 1 mg PO BID #10 tabs 02/08/25 oxycodone 10 mg tablet 10 mg PO Q6H PRN #14 tabs 02/23/25 apixaban 5 mg tablet (Eliquis) 5 mg PO BID #60 tabs 03/08/25 famotidine 20 mg tablet 20 mg PO BID #30 tabs 03/15/25 ondansetron 4 mg disintegrating 4 mg PO Q8H PRN #20 tabs 03/15/25 tablet sucralfate 1 gram tablet 1 g PO QACHS #90 tabs 03/15/25 Allergies Allergy/AdvReac Type Severity Reaction Status Date / Time codeine Allergy Intermediate pass out Verified 03/15/25 14:17 Penicillins Allergy Skin Rash Verified 03/15/25 14:17 marijuana (cannabis) AdvReac Severe Paranoia Verified 03/15/25 14:17 amoxicillin AdvReac Intermediate Nausea Verified 03/15/25 14:17 dextromethorphan (From AdvReac Intermediate got Verified 03/15/25 14:17 NyQuil) really hot and sweaty doxylamine (From NyQuil) AdvReac Intermediate got Verified 03/15/25 14:17 really hot and sweaty pseudoephedrine (From NyQuil) AdvReac Intermediate got Verified 03/15/25 14:17 really hot and sweaty General Stated Complaint: Abd Prob ADRIANA: 3 Course Vital Signs Vital signs: Vital Signs Temperature 100 F H 03/15/25 14:13 Pulse 110 H 03/15/25 14:13 Respiratory Rate 18 03/15/25 14:13 Blood Pressure 132/86 03/15/25 14:13 Pulse Oximetry 98 03/15/25 14:13 Temperature 100 F H 03/15/25 14:13 Temperature Source Tympanic 03/15/25 14:13 Pulse 110 H 03/15/25 14:13 Respiratory Rate 18 03/15/25 14:13 Blood Pressure 132/86 03/15/25 14:13 Pulse Oximetry 98 03/15/25 14:13 Pain Level 8 03/15/25 14:13 Medical Decision Making Patient presenting with continued abdominal pain and now vomiting after eating. Currently no pain or nausea. His abdominal exam is completely benign. His CMP from 2 days ago was unremarkable. Yesterday was seen for chest pain with negative troponins. He is not having hematemesis. He is status post cholecystectomy. I do not at this time see any indication to repeat labs and given his nontender abdomen no indication for CT scan. He is already on omeprazole which he takes daily. Will add famotidine and sucralfate as this may potentially be related to ulcer. Prescription for ondansetron to take 30 to 60 minutes prior to a meal. Referred to primary care for follow-up. Return precautions provided. Lab Data Lab results reviewed: Yes I reviewed the patient's lab results. Lab results narrative: See MDM -previous labs reviewed no indication for labs today Quality:SDOH Health Related Social Needs: Health related social needs daily activities PFSH All Active Problems Chest pain, unspecified (Acute) Abdominal pain (Acute) Left-sided chest pain (Acute) Pulmonary infiltrates (Acute) Snoring (Acute) Pleural effusion (Acute) Arm pain, left (Acute) Chest pain (Acute) Rt groin pain (Acute) Bloody sputum (Acute) Left ankle sprain (Acute) Rash (Acute) Shortness of breath (Acute) Edema, peripheral (Acute) Anxiety (Chronic) Chest discomfort (Acute) Pulmonary embolism and infarction (Acute) Left pulmonary infiltrate on CXR (Acute) Bilateral pulmonary embolism (Acute) Tenderness of neck (Acute) Right elbow pain (Acute) Acute leg pain (Acute) Bronchitis (Acute) Well adult health check (Acute) Obstructive sleep apnea (Chronic) Metabolic dysfunction-associated fatty liver disease (MAFLD) (Acute) Fatty liver (Acute) IBS (irritable bowel syndrome) (Chronic) Obesity (Chronic) Migraine with aura (Acute) Testicle lump (Acute) Pes anserine bursitis (Acute) Left-sided Flower's palsy (Acute) Opiate dependence, continuous (Acute) 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 Possible 2' Methadone, Clnzpm (?). Surg eval (+)/No further action. History of electrolyte imbalance (Acute) Neck pain on left side (Acute) with shoulder, upper back pain.. torticollis, radiating into left hip/leg Pulmonary nodule 1 cm or greater in diameter (Chronic) Therapeutic opioid induced constipation (Acute) Sphincter of Oddi dysfunction (Chronic) Abnormal CT scan, kidney (Acute) Intrahepatic bile duct dilation (Acute) Common bile duct dilatation (Chronic) Has been dilated for quite some time, now more-so. Normal LFTs. Known gallstones. Depression (Chronic) Elevated parathyroid hormone (Acute) Family history of coronary arteriosclerosis (Chronic) Father of PR at 50, mother had PR at 42 Severe anxiety with panic (Chronic) Medical History Multiple endocrine neoplasia type I CKD (chronic kidney disease) stage 2, GFR 60-89 ml/min GFR 64-65, with Hx FLORESITA and GFR < 45 Primary hyperparathyroidism Complex medical condition Serious electrolyte imbalances, with gynecomastia, possible MEN Dx, CKD and anemia with baseline anxiety and Hx PTSD. Hypocalcemia Anxiety Depression Hyperlipidemia Family history of multiple endocrine neoplasia, type 1 PTSD (post-traumatic stress disorder) Per pt. states no triggers at this time. Surgical History History of laparoscopic cholecystectomy (~11/2023) H/O parathyroidectomy Family History Mother Anxiety Asthma Depression Sister Anxiety Depression Father Cancer lung & stomach Depression Diabetes Hypertension MEN 1 (multiple endocrine neoplasia) Social History Smoking/Tobacco Use Status: Never Smoking risk assessment performed?: Yes Alcohol Intake: never Drug use: Current Sobriety Substance use type: former substance user, crack/cocaine, heroin and painkillers Details: stopped using substances for the past 4 years Adopted: No Caregiver/Support person: No Foster care: No Household members: none Housing: apartment Number of Children: 0 Communication Needs: None Education Level: high school Do you need help understanding health information?: Never current occupation: [employer] Pets and animals: Yes (Ally) Pets and animals: dog(s) Sexually active: No Do you think of yourself as: straight/heterosexual Current gender identity: male What is your relationship status?: How often do you talk on the phone with friends or family?: twice per week How often do you get together with friends or relatives?: never Do you belong to any clubs or organized social groups?: no Panel score (0-1 are the most socially isolated patients): 0 What type of physical activity do you participate in: walking Duration: 15-30 minutes/day Frequency: 5-6 times per week Maryam/Restoration: Jewish Special maryam needs: No Seatbelt use: always Helmet use: Yes Helmet use: always Drive intox or ride w/intox corporate driver: No Do you feel safe at home: Yes Do you feel safe in your relationship?: Yes
--- NOTE | 2025-03-16 07:26 | NUR.NOTE ---
Per DI patient was a no show for US ordered on 03/07/2025 by Luh Tsai for the date of 03/15/2025. Nursing Note:
== END 2025-03-15 16:35 | disposition home or self-care (01) ==
PROVIDERS: Emergency Provider Emergency Medicine; PCP Physician Assistant
DX: R10.13 Epigastric pain (principal)
CPT/HCPCS: 99282; 99283

== ENCOUNTER 2025-03-16 07:57 | Emergency (ER) | payer OTHER, SELFPAY ==
[2025-03-16] VITALS (10 sets, daily range): BP systolic 119–159; BP diastolic 74–85; PULSE 76–119; RESP 16–18; TEMP 36.8–37.3; O2SAT 93–100
--- NOTE | 2025-03-16 08:15 | RT.EKG_ITS ---
APPROVED REPORT Exam: Resting ECG Reason for Exam: epigastric pain Patient Location: E HR:93 bpm ECG Measurements Heart Rate 93 AXIS PA 172 P 43 QRSd 96 QRS 26 QT 371 T 41 QTc 462 Conclusion Sinus rhythm...normal P axis, V-rate 60- 99 Physician: No STEMI
[2025-03-16 08:48] LABS: Abs Immature Grans 0.02 10^3/uL (0.0-0.06); HCT 30.9 % (40.0-50.0); HGB 9.5 g/dL (13.5-17.5); Immature Grans % 0.3 %; MCH 25.7 pg (27.0-33.0); MCHC 30.7 % (32.0-36.0); MCV 84 fL (80-95); MPV 9.9 fL (8.0-11.0); Platelet Count 367 10^3/uL (130-400); RBC 3.70 10^6/uL (4.36-5.78); RDW 16.3 % (11.8-14.1); RDW-SD 50.3 fL; WBC 7.28 10^3/uL (4.4-10.8)
[2025-03-16] MEDS: Normal Saline Flush 10 ML SYR IVP (09:09)
[2025-03-16] MEDS: Normal Saline - Diluent 50 ML VIAL IJ (09:09)
[2025-03-16] MEDS: Omnipaque 350 MG/ML 500 ML BTL-Imaging package IJ (09:09)
[2025-03-16 09:10] LABS: ALT 32 U/L (16-63); AST 24 U/L (15-37); Albumin 3.4 g/dL (3.4-5.0); Alkaline Phosphatase 139 U/L (46-116); Anion Gap 8.2 mmol/L (3-11); BUN 10 mg/dL (7-18); Bilirubin, Total 0.4 mg/dL (0.2-1.0); CO2 30.8 mmol/L (21.0-32.0); Calcium 8.8 mg/dL (8.5-10.1); Chloride 101 mmol/L (98-107); Estimated GFR 58.71 (mL/min/1.73m2); Glucose 96 mg/dL (74-106); Lipase 22 U/L (<78); Potassium 3.8 mmol/L (3.5-5.1); Sodium 140 mmol/L (136-145); Total Protein 8.2 g/dL (6.4-8.2)
[2025-03-16 09:11] LABS: Troponin I < 4 ng/L (<or=76)
--- NOTE | 2025-03-16 09:26 | DI.CT_ITS ---
Exam(s) CT ABDOMEN PELVIS W EXAM: CT ABDOMEN PELVIS W CLINICAL HISTORY: epigastric pain. TECHNIQUE: Imaging Protocol: Axial computed tomography images with coronal and sagittal reformatted images were created and reviewed CONTRAST MATERIAL: Intravenous: Omnipaque 350 Contrast volume:100 ml Oral: no COMPARISON: CT CT CHEST PE ABD PELVIS W from 07/04/[address] ABDOMEN PELVIS W from 04/19/[address] ABDOMEN PELVIS W from 09/27/[address] ABDOMEN PELVIS W from 01/24/2025 CR XR CHEST 2V PA LATERAL from 03/14/2025 FINDINGS: ABDOMEN and PELVIS: Lung Bases: No acute findings. Liver: Normal hepatic steatosis. No suspicious mass. Gallbladder and biliary tract: Status post cholecystectomy.. No biliary dilation. Pancreas: Moderately atrophic. Stable appearance from prior. Normal density. No abnormal calcifications or inflammatory process. No evidence of mass. Spleen: Normal. Kidneys: Normal size, contour and axis. No radiodense stones. No obstructive uropathy. Hypodense renal lesions are again noted which appear to be increasing in size over time. Adrenal glands: No masses seen. Vasculature: Abdominal aorta non-dilated. Soft tissues: Unremarkable. Bladder: Nearly empty. No gross wall thickening. No calculi.No focal mass. Bowel: No obstruction. No bowel wall thickening. Appendix normal. Peritoneal cavity: No ascites. No focal collection. No mesenteric inflammatory response. No free air. Bones: Unremarkable for age. Reproductive organs: Unremarkable. Lymph nodes: No pathologically enlarged lymph nodes. IMPRESSION:: No acute abnormality in the abdomen or pelvis. Low-density lesions are again noted in the kidneys which appear to have increased in size when compared with older examinations. An MRI could be considered for further evaluation. Enlarged liver with hepatic steatosis cholecystectomy. No biliary dilatation. The pancreas is again noted to be somewhat atrophic. There is no visible inflammatory change. Unexpected findings RADIATION DOSE DELIVERED: 1,757.44mGy.cm Total DLP DATA REPOSITORY: All CT scans at this facility are submitted to the National Radiology Data Registry (NRDR) Dose Index Registry (DIR) with the [employer] ([employer]). RADIATION OPTIMIZATION: All CT scans at this facility use at least one of these dose optimization techniques: automated exposure control; mA and/or kV adjustment per patient size (includes targeted exams where dose is matched to clinical indication); or iterative reconstruction.
[2025-03-16] MEDS: Prochlorperazine 10 MG/2 ML VIAL 5 MG IVP (09:43)
[2025-03-16] MEDS: Normal Saline 1,000 ML 1000 ML IV (09:44)
[2025-03-16 09:57] LABS: Troponin I < 4 ng/L (<or=76)
[2025-03-16] MEDS: Magnesium Citrate 300 ML BTL PO (10:45)
[2025-03-16 13:55] LABS: Folate 4.7 ng/mL (8.6-20.0)
--- NOTE | 2025-03-16 15:01 | W.ED.GENAD ---
Discharge Plan Disposition Patient Disposition: Home Condition: Stable Discharge Details Clinical Impression: Abdominal pain, epigastric Primary Care Provider: Sanjana Pritchett ED Provider: Luh Tsai Home Meds and New Rx's Prescriptions: New prochlorperazine maleate [Compazine] 10 mg tablet 10 mg PO Q6H PRNQty: 10 0RF Continued gabapentin 300 mg capsule 300 mg PO BID Qty: 180 3RF omeprazole 40 mg capsule,delayed release(DR/EC) 40 mg PO DAILY Qty: 90 3RF lorazepam 1 mg tablet 1 mg PO DAILY PRN (Reason: anxiety) Qty: 10 0RF Rx Instructions: Use when considering ER visit cyclobenzaprine 10 mg tablet 10 mg PO TID PRN (Reason: muscle spasm) Qty: 30 3RF Eliquis 5 mg tablet 5 mg PO BID Qty: 60 6RF methadone 10 mg/5 mL solution 100 mg PO QAM calcitriol 0.5 mcg capsule 1 mcg PO .COMPLEX Qty: 270 3RF Rx Instructions: 1 mcg orally t2 tabs qam and 1 tab QHS; clonazepam 1 mg tablet 1 mg PO BID Qty: 10 0RF calcium carbonate [Tums] 200 mg calcium (500 mg) tablet,chewable 2,000 mg PO BID prochlorperazine maleate 5 mg tablet 5 mg PO TID PRN (Reason: acute nausea) Qty: 30 0RF polyethylene glycol 3350 17 gram powder in packet 17 g PO BID PRN magnesium gluconate 27 mg magnesium (500 mg) tablet 500 mg PO BID Rx Instructions: takes 500mg QAM and 1000mg QHS diclofenac sodium 1 % gel 2 g topical QID Qty: 50 0RF Rx Instructions: apply to single elbow, wrist or hand; for hand includes palm/fingers/back of hand famotidine 20 mg tablet 20 mg PO BID Qty: 30 0RF sucralfate 1 gram tablet 1 g PO QACHS Qty: 90 0RF ondansetron 4 mg tablet,disintegrating 4 mg PO Q8H PRNQty: 20 0RF oxycodone 10 mg tablet 10 mg PO Q6H PRNQty: 14 0RF Discharge Instructions Instructions: Abdominal Pain, Adult ED Additional Instructions: Take the Pepcid twice daily Take your omeprazole daily Take the mag citrate as prescribed Take MiraLAX daily thereafter as needed for constipation Warm compresses to abdomen as needed You have some lesions on your kidneys which have been present on your CAT scans in the past that have grown slightly larger, you will need an MRI for further evaluation, please have your primary care doctor order an MRI of your abdomen and pelvis with contrast Try to stay away from spicy foods, fatty foods, citrus containing foods Referrals: Sanjana Pritchett [Primary Care Provider, Medicine] Discharge Data Discharge Date/Time-TO BE ENTERED AT DEPARTURE: 03/16/25 10:54 HPI General Date/Time Provider Initiated Documentation: 03/16/25 08:08. HPI Narrative: This 29-year-old male known to this facility presents with epigastric pain. He states that this started about 5 days ago. He read that Eliquis can cause gastritis but he states he thinks this pain is different. He has also had trouble having bowel movements he denies any blood in his stool last past week. He thinks he had a bowel movement 3 days ago. He has had some vomiting predominantly when eating with low-grade fevers at home per patient. He denies any blood in vomitus in the past several days. He states it does not affect his symptoms quite as much he describes the pain as sharp and radiating through to his back. He does not consume any alcohol. Related Data Home Medications ?Medication ?Instructions ?Recorded ?Confirmed calcium carbonate (Tums) 2,000 mg PO BID 02/02/23 03/16/25 methadone 10 mg/5 mL oral solution 100 mg PO QAM 06/12/23 03/16/25 prochlorperazine maleate 5 mg 5 mg PO TID PRN acute nausea #30 09/06/23 03/16/25 tablet tabs gabapentin 300 mg capsule 300 mg PO BID #180 caps 06/01/24 03/16/25 calcitriol 0.5 mcg capsule 1 mcg (2 x 0.5 mcg) PO .COMPLEX 06/29/24 03/16/25 #270 caps omeprazole 40 mg capsule,delayed 40 mg PO DAILY #90 caps 07/27/24 03/16/25 release polyethylene glycol 3350 17 gram 17 g PO BID PRN 10/15/24 03/16/25 oral powder packet lorazepam 1 mg tablet 1 mg PO DAILY PRN anxiety #10 tabs 10/19/24 03/16/25 cyclobenzaprine 10 mg tablet 10 mg PO TID PRN muscle spasm #30 11/16/24 03/16/25 tabs magnesium gluconate 27 mg 500 mg PO BID 01/30/25 03/16/25 magnesium (500 mg) tablet diclofenac sodium 1 % topical gel 2 g topical QID #50 grams 02/03/25 03/16/25 clonazepam 1 mg tablet 1 mg PO BID #10 tabs 02/08/25 03/16/25 oxycodone 10 mg tablet 10 mg PO Q6H PRN #14 tabs 02/23/25 03/16/25 apixaban 5 mg tablet (Eliquis) 5 mg PO BID #60 tabs 03/08/25 03/16/25 famotidine 20 mg tablet 20 mg PO BID #30 tabs 03/15/25 03/16/25 ondansetron 4 mg disintegrating 4 mg PO Q8H PRN #20 tabs 03/15/25 03/16/25 tablet sucralfate 1 gram tablet 1 g PO QACHS #90 tabs 03/15/25 03/16/25 prochlorperazine maleate 10 mg 10 mg PO Q6H PRN #10 tabs 03/16/25 tablet (Compazine) Previous Rx's ?Medication ?Instructions ?Recorded prochlorperazine maleate 5 mg 5 mg PO TID PRN acute nausea #30 09/06/23 tablet tabs gabapentin 300 mg capsule 300 mg PO BID #180 caps 06/01/24 calcitriol 0.5 mcg capsule 1 mcg (2 x 0.5 mcg) PO .COMPLEX 06/29/24 #270 caps omeprazole 40 mg capsule,delayed 40 mg PO DAILY #90 caps 07/27/24 release lorazepam 1 mg tablet 1 mg PO DAILY PRN anxiety #10 tabs 10/19/24 cyclobenzaprine 10 mg tablet 10 mg PO TID PRN muscle spasm #30 11/16/24 tabs diclofenac sodium 1 % topical gel 2 g topical QID #50 grams 02/03/25 clonazepam 1 mg tablet 1 mg PO BID #10 tabs 02/08/25 oxycodone 10 mg tablet 10 mg PO Q6H PRN #14 tabs 02/23/25 apixaban 5 mg tablet (Eliquis) 5 mg PO BID #60 tabs 03/08/25 famotidine 20 mg tablet 20 mg PO BID #30 tabs 03/15/25 ondansetron 4 mg disintegrating 4 mg PO Q8H PRN #20 tabs 03/15/25 tablet sucralfate 1 gram tablet 1 g PO QACHS #90 tabs 03/15/25 prochlorperazine maleate 10 mg 10 mg PO Q6H PRN #10 tabs 03/16/25 tablet (Compazine) Allergies Allergy/AdvReac Type Severity Reaction Status Date / Time codeine Allergy Intermediate pass out Verified 03/16/25 12:59 Penicillins Allergy Skin Rash Verified 03/16/25 12:59 marijuana (cannabis) AdvReac Severe Paranoia Verified 03/16/25 12:59 amoxicillin AdvReac Intermediate Nausea Verified 03/16/25 12:59 dextromethorphan (From AdvReac Intermediate got Verified 03/16/25 12:59 NyQuil) really hot and sweaty doxylamine (From NyQuil) AdvReac Intermediate got Verified 03/16/25 12:59 really hot and sweaty pseudoephedrine (From NyQuil) AdvReac Intermediate got Verified 03/16/25 12:59 really hot and sweaty General Stated Complaint: Abd Prob ADRIANA: 3 Exam Narrative Exam Narrative: Alert and oriented 29-year-old male with epigastric tenderness, no rebound or guarding. Lungs are auscultation cardiac rate rhythm regular distal pulses intact no rashes or lesions Course Vital Signs Vital signs: Vital Signs Temperature 37.3 C 03/16/25 08:00 Pulse 119 H 03/16/25 08:00 Respiratory Rate 18 03/16/25 08:00 Blood Pressure 159/85 H 03/16/25 08:00 Pulse Oximetry 96 03/16/25 08:00 Temperature 37.3 C 03/16/25 10:42 Pulse 76 03/16/25 10:42 Respiratory Rate 18 03/16/25 10:42 Blood Pressure 159/85 H 03/16/25 10:42 Blood Pressure Mean 85 03/16/25 10:41 Pulse Oximetry 96 03/16/25 10:42 Oxygen Delivery Method Room Air 03/16/25 10:42 Oxygen Flow Rate 0 03/16/25 10:42 Pain Level 7 03/16/25 10:42 Lab/Test Results Lab/Test Results: Laboratory Tests Range/Units 10/01/25 10/01/25 08:35 09:31 WBC (4.4-10.8) 10^3/uL 7.28 RBC (4.36-5.78) 10^6/uL 3.70 L Hgb (13.5-17.5) g/dL 9.5 L Hct (40.0-50.0) % 30.9 L MCV (80-95) fL 84 MCH (27.0-33.0) pg 25.7 L MCHC (32.0-36.0) % 30.7 L RDW (11.8-14.1) % 16.3 H Plt Count (130-400) 10^3/uL 367 MPV (8.0-11.0) fL 9.9 Immature Gran % % 0.3 Neutrophils % % 70.3 Lymphocytes % % 18.3 Monocytes % % 9.6 Eosinophils % % 1.2 Basophils % % 0.3 Nucleated RBC % (0.0-0.3) % 0.0 Absolute Neutrophils (1.2-6.7) 10^3/uL 5.12 Absolute Lymphocytes (1.2-3.4) 10^3/uL 1.33 Absolute Monocytes (0.1-0.8) 10^3/uL 0.70 Absolute Eosinophils (0.0-0.7) 10^3/uL 0.09 Absolute Basophils (0.0-0.2) 10^3/uL 0.02 Sodium (136-145) mmol/L 140 Potassium (3.5-5.1) mmol/L 3.8 Chloride (98-107) mmol/L 101 Carbon Dioxide (21.0-32.0) mmol/L 30.8 Anion Gap (3-11) mmol/L 8.2 BUN (7-18) mg/dL 10 Creatinine (0.70-1.30) mg/dL 1.6 H Est GFR (CKD-EPI 2020) (mL/min/1.73m2) 58.71 Glucose (74-106) mg/dL 96 Calcium (8.5-10.1) mg/dL 8.8 Total Bilirubin (0.2-1.0) mg/dL 0.4 AST (15-37) U/L 24 ALT (16-63) U/L 32 Alkaline Phosphatase (46-116) U/L 139 H Troponin I (<or=76) ng/L < 4 < 4 Total Protein (6.4-8.2) g/dL 8.2 Albumin (3.4-5.0) g/dL 3.4 Lipase (<78) U/L 22 Folate (8.6-20.0) ng/mL 4.7 L Medical Decision Making Results: EKG nonischemic hemoglobin and hematocrit stable for patient at 9.5 and 30.9 troponins negative, creatinine 1.6 baseline for patient, CT abdomen pelvis does not show acute pathology however the suspected cysts in bilateral kidneys have slightly increased in size, this was discussed with Dr. Ramos radiologist via phone Assessment and plan: Patient presenting with epigastric abdominal pain. He is made aware regarding CT findings with enlarging renal lesions and knows that he will need outpatient MRI he will talk to his provider [facility] [place] to order this. His labs are reassuringly normal for him. Patient is in no acute distress there is no obvious ischemia on troponin or EKG. Patient will be discharged home and encouraged to take his Pepcid and Prilosec. He will talk to his doctor about alternative options Eliquis if the symptoms continue. He will make sure to take his Eliquis with a small amount of food and avoid fatty foods, spicy foods. I will write for nausea medication which he may take at home as needed although he has not had any vomiting throughout this encounter. Return precautions discussed in detail patient expressed understanding. Quality:SDOH Health Related Social Needs: Health related social needs daily activities PFSH All Active Problems (Updated 03/16/25 @ 13:19 by Manuel Vargas MD) Hyperhomocysteinemia (Acute) Abdominal pain, epigastric (Acute) Chest pain, unspecified (Acute) Abdominal pain (Acute) Left-sided chest pain (Acute) Pulmonary infiltrates (Acute) Snoring (Acute) Pleural effusion (Acute) Arm pain, left (Acute) Chest pain (Acute) Rt groin pain (Acute) Bloody sputum (Acute) Left ankle sprain (Acute) Rash (Acute) Shortness of breath (Acute) Edema, peripheral (Acute) Anxiety (Chronic) Chest discomfort (Acute) Pulmonary embolism and infarction (Acute) Left pulmonary infiltrate on CXR (Acute) Bilateral pulmonary embolism (Acute) Tenderness of neck (Acute) Right elbow pain (Acute) Acute leg pain (Acute) Bronchitis (Acute) Well adult health check (Acute) Obstructive sleep apnea (Chronic) Metabolic dysfunction-associated fatty liver disease (MAFLD) (Acute) Fatty liver (Acute) IBS (irritable bowel syndrome) (Chronic) Obesity (Chronic) Migraine with aura (Acute) Testicle lump (Acute) Pes anserine bursitis (Acute) Left-sided Flower's palsy (Acute) Opiate dependence, continuous (Acute) 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 Possible 2' Methadone, Clnzpm (?). Surg eval (+)/No further action. History of electrolyte imbalance (Acute) Neck pain on left side (Acute) with shoulder, upper back pain.. torticollis, radiating into left hip/leg Pulmonary nodule 1 cm or greater in diameter (Chronic) Therapeutic opioid induced constipation (Acute) Sphincter of Oddi dysfunction (Chronic) Abnormal CT scan, kidney (Acute) Intrahepatic bile duct dilation (Acute) Common bile duct dilatation (Chronic) Has been dilated for quite some time, now more-so. Normal LFTs. Known gallstones. Depression (Chronic) Elevated parathyroid hormone (Acute) Family history of coronary arteriosclerosis (Chronic) Father of RI at 50, mother had RI at 42 Severe anxiety with panic (Chronic) Medical History Multiple endocrine neoplasia type I CKD (chronic kidney disease) stage 2, GFR 60-89 ml/min GFR 64-65, with Hx FLORESITA and GFR < 45 Primary hyperparathyroidism Complex medical condition Serious electrolyte imbalances, with gynecomastia, possible MEN Dx, CKD and anemia with baseline anxiety and Hx PTSD. Hypocalcemia Anxiety Depression Hyperlipidemia Family history of multiple endocrine neoplasia, type 1 PTSD (post-traumatic stress disorder) Per pt. states no triggers at this time. Surgical History History of laparoscopic cholecystectomy (~11/2023) H/O parathyroidectomy Family History Mother Anxiety Asthma Depression Sister Anxiety Depression Father Cancer lung & stomach Depression Diabetes Hypertension MEN 1 (multiple endocrine neoplasia) Social History Smoking/Tobacco Use Status: Never Smoking risk assessment performed?: Yes Alcohol Intake: never Drug use: Current Sobriety Substance use type: former substance user, crack/cocaine, heroin and painkillers Details: stopped using substances for the past 4 years Adopted: No Caregiver/Support person: No Foster care: No Household members: none Housing: apartment Number of Children: 0 Communication Needs: None Education Level: high school Do you need help understanding health information?: Never current occupation: [employer] Pets and animals: Yes (Ally) Pets and animals: dog(s) Sexually active: No Do you think of yourself as: straight/heterosexual Current gender identity: male What is your relationship status?: How often do you talk on the phone with friends or family?: twice per week How often do you get together with friends or relatives?: never Do you belong to any clubs or organized social groups?: no Panel score (0-1 are the most socially isolated patients): 0 What type of physical activity do you participate in: walking Duration: 15-30 minutes/day Frequency: 5-6 times per week Maryam/Worship: Tenriism Special maryam needs: No Seatbelt use: always Helmet use: Yes Helmet use: always Drive intox or ride w/intox telephone directory distributor driver: No Do you feel safe at home: Yes Do you feel safe in your relationship?: Yes
== END 2025-03-16 10:54 | disposition home or self-care (01) ==
PROVIDERS: Internal Medicine Pulmonary Disease; Emergency Provider Physician Assistant; PCP Physician Assistant
DX: E72.11 Homocystinuria (principal); R10.13 Epigastric pain
CPT/HCPCS: 99285; 99284; 96374; 80053; 83690; 93005; 96361; 74177; 82746; 84484; 85025; 93010; J0780

== ENCOUNTER 2025-03-21 07:46 | Emergency (ER) | payer OTHER, SELFPAY ==
[2025-03-21 07:51] VITALS: BP 133/69; PULSE 97; RESP 16; TEMP 36.3; O2SAT 99
--- NOTE | 2025-03-21 08:00 | DI.CT_ITS ---
Exam(s) CT HEAD WO EXAM: CT HEAD WO CLINICAL HISTORY: L. sided headache, hx pituitary mass, eliquis. TECHNIQUE: Imaging Protocol: Axial computed tomography images with coronal and sagittal reformatted images were created and reviewed COMPARISON: CT CT HEAD WO from 12/01/[address] HEAD WO from 02/09/2024 FINDINGS: Ventricles and Extra axial spaces: Normal in size and morphology for the patient's age. Hemorrhage: None. Cerebral parenchyma: There is a normal sexton-white matter differentiation. There is no evidence of an acute territorial infarct. Midline shift: None. Brainstem/Cerebellum: Normal. Calvarium: Normal. Visualized Paranasal sinuses/Mastoids: Clear. Soft Tissues: Unremarkable. Pituitary gland: Not enlarged. IMPRESSION: No acute intracranial process. RADIATION DOSE DELIVERED: 948.63mGy.cm Total DLP DATA REPOSITORY: All CT scans at this facility are submitted to the National Radiology Data Registry (NRDR) Dose Index Registry (DIR) with the [employer] (ACR). RADIATION OPTIMIZATION: All CT scans at this facility use at least one of these dose optimization techniques: automated exposure control; mA and/or kV adjustment per patient size (includes targeted exams where dose is matched to clinical indication); or iterative reconstruction.
--- NOTE | 2025-03-21 08:12 | W.ED.GENAD ---
Discharge Plan Disposition Patient Disposition: Home Condition: Stable Discharge Details Clinical Impression: Headache Primary Care Provider: Sanjana Pritchett ED Provider: Tere Adams Home Meds and New Rx's Prescriptions: No Action gabapentin 300 mg capsule 300 mg PO BID Qty: 180 3RF omeprazole 40 mg capsule,delayed release(DR/EC) 40 mg PO DAILY Qty: 90 3RF lorazepam 1 mg tablet 1 mg PO DAILY PRN (Reason: anxiety) Qty: 10 0RF Rx Instructions: Use when considering ER visit cyclobenzaprine 10 mg tablet 10 mg PO TID PRN (Reason: muscle spasm) Qty: 30 3RF Eliquis 5 mg tablet 5 mg PO BID Qty: 60 6RF methadone 10 mg/5 mL solution 100 mg PO QAM calcitriol 0.5 mcg capsule 1 mcg PO .COMPLEX Qty: 270 3RF Rx Instructions: 1 mcg orally t2 tabs qam and 1 tab QHS; clonazepam 1 mg tablet 1 mg PO BID Qty: 10 0RF folic acid 1 mg tablet 1 mg PO DAILY Qty: 30 6RF calcium carbonate [Tums] 200 mg calcium (500 mg) tablet,chewable 2,000 mg PO BID prochlorperazine maleate 5 mg tablet 5 mg PO TID PRN (Reason: acute nausea) Qty: 30 0RF polyethylene glycol 3350 17 gram powder in packet 17 g PO BID PRN magnesium gluconate 27 mg magnesium (500 mg) tablet 500 mg PO BID Rx Instructions: takes 500mg QAM and 1000mg QHS diclofenac sodium 1 % gel 2 g topical QID Qty: 50 0RF Rx Instructions: apply to single elbow, wrist or hand; for hand includes palm/fingers/back of hand famotidine 20 mg tablet 20 mg PO BID Qty: 30 0RF sucralfate 1 gram tablet 1 g PO QACHS Qty: 90 0RF ondansetron 4 mg tablet,disintegrating 4 mg PO Q8H PRNQty: 20 0RF prochlorperazine maleate [Compazine] 10 mg tablet 10 mg PO Q6H PRNQty: 10 0RF Discharge Instructions Instructions: Headache, Adult ED Additional Instructions: You were seen in the emergency department today for evaluation of a headache. In our department you do full physical examination performed and had a CT scan that did not show any sign of bleeding in your brain or changes in the area of your pituitary gland. You received medications to manage your headache to good effect. At home if your headache recurs, I recommend that you use Tylenol, 1000 mg every 6 hours as needed for pain. Please also increase your hydration as this can contribute to bad headaches. Please follow-up with your primary care provider in the next few days to discuss this visit and any symptoms that change, worsen, or persist. Thank you for allowing us to be part of your care. HPI General Mode of arrival: ambulatory. Date/Time Provider Initiated Documentation: 03/21/25 07:48. Limitations to Documentation: no limitations. Information obtained by: patient and old records reviewed. HPI Narrative: This is a 29-year-old male patient with a history of M&M pituitary masses, history of pulmonary embolism currently anticoagulated on Eliquis, presenting for evaluation of headache. The patient states that since Friday he has had a left-sided headache, with some eye pain and pressure. He reports some blurry vision out of his left eye intermittently, states that he has tried Tylenol at home without significant improvement. His headache worsened when he was using a hot tub, improves during sleep. Denies new numbness, weakness, or tingling in any aspect of his body. Has not sustained trauma or injury, denies fevers or chills. Related Data Home Medications ?Medication ?Instructions ?Recorded ?Confirmed calcium carbonate (Tums) 2,000 mg PO BID 02/02/23 03/21/25 methadone 10 mg/5 mL oral solution 100 mg PO QAM 06/12/23 03/21/25 prochlorperazine maleate 5 mg 5 mg PO TID PRN acute nausea #30 09/06/23 03/21/25 tablet tabs gabapentin 300 mg capsule 300 mg PO BID #180 caps 06/01/24 03/21/25 calcitriol 0.5 mcg capsule 1 mcg (2 x 0.5 mcg) PO .COMPLEX 06/29/24 03/21/25 #270 caps omeprazole 40 mg capsule,delayed 40 mg PO DAILY #90 caps 07/27/24 03/21/25 release polyethylene glycol 3350 17 gram 17 g PO BID PRN 10/15/24 03/21/25 oral powder packet lorazepam 1 mg tablet 1 mg PO DAILY PRN anxiety #10 tabs 10/19/24 03/21/25 cyclobenzaprine 10 mg tablet 10 mg PO TID PRN muscle spasm #30 11/16/24 03/21/25 tabs magnesium gluconate 27 mg 500 mg PO BID 01/30/25 03/21/25 magnesium (500 mg) tablet diclofenac sodium 1 % topical gel 2 g topical QID #50 grams 02/03/25 03/21/25 clonazepam 1 mg tablet 1 mg PO BID #10 tabs 02/08/25 03/21/25 apixaban 5 mg tablet (Eliquis) 5 mg PO BID #60 tabs 03/08/25 03/21/25 famotidine 20 mg tablet 20 mg PO BID #30 tabs 03/15/25 03/21/25 ondansetron 4 mg disintegrating 4 mg PO Q8H PRN #20 tabs 03/15/25 03/21/25 tablet sucralfate 1 gram tablet 1 g PO QACHS #90 tabs 03/15/25 03/21/25 prochlorperazine maleate 10 mg 10 mg PO Q6H PRN #10 tabs 03/16/25 03/21/25 tablet (Compazine) folic acid 1 mg tablet 1 mg PO DAILY #30 tabs 03/17/25 03/21/25 Previous Rx's ?Medication ?Instructions ?Recorded prochlorperazine maleate 5 mg 5 mg PO TID PRN acute nausea #30 09/06/23 tablet tabs gabapentin 300 mg capsule 300 mg PO BID #180 caps 06/01/24 calcitriol 0.5 mcg capsule 1 mcg (2 x 0.5 mcg) PO .COMPLEX 06/29/24 #270 caps omeprazole 40 mg capsule,delayed 40 mg PO DAILY #90 caps 07/27/24 release lorazepam 1 mg tablet 1 mg PO DAILY PRN anxiety #10 tabs 10/19/24 cyclobenzaprine 10 mg tablet 10 mg PO TID PRN muscle spasm #30 11/16/24 tabs diclofenac sodium 1 % topical gel 2 g topical QID #50 grams 02/03/25 clonazepam 1 mg tablet 1 mg PO BID #10 tabs 02/08/25 apixaban 5 mg tablet (Eliquis) 5 mg PO BID #60 tabs 03/08/25 famotidine 20 mg tablet 20 mg PO BID #30 tabs 03/15/25 ondansetron 4 mg disintegrating 4 mg PO Q8H PRN #20 tabs 03/15/25 tablet sucralfate 1 gram tablet 1 g PO QACHS #90 tabs 03/15/25 prochlorperazine maleate 10 mg 10 mg PO Q6H PRN #10 tabs 03/16/25 tablet (Compazine) folic acid 1 mg tablet 1 mg PO DAILY #30 tabs 03/17/25 Allergies Allergy/AdvReac Type Severity Reaction Status Date / Time Penicillins Allergy Skin Rash Verified 03/21/25 07:54 marijuana (cannabis) AdvReac Severe Paranoia Verified 03/21/25 07:54 amoxicillin AdvReac Intermediate Nausea Verified 03/21/25 07:54 codeine AdvReac Intermediate pass out Verified 03/21/25 08:11 dextromethorphan (From AdvReac Intermediate got Verified 03/21/25 07:54 NyQuil) really hot and sweaty doxylamine (From NyQuil) AdvReac Intermediate got Verified 03/21/25 07:54 really hot and sweaty pseudoephedrine (From NyQuil) AdvReac Intermediate got Verified 03/21/25 07:54 really hot and sweaty General Stated Complaint: Headache ADRIANA: 3 Exam Narrative Exam Narrative: Gen: awake and alert, in no apparent distress. Appears well nourished. HEENT: PERRL, EOMs full and without nystagmus. Conjunctiva noninjected, scalp atraumatic, external ears and nose normal, mucous membranes moist. Neck: Supple, full range of motion, no midline C-spine tenderness or step-offs Lungs: No increased work of breathing, lung sounds clear and equal bilaterally without wheezes, rhonchi, or rales. CV: Heart with regular rate and rhythm, no murmurs auscultated. Strong and symmetrical radial pulses. Abdomen: Soft, nondistended, non-tender to palpation. No rigidity, rebound tenderness, or guarding. MSK: No joint swelling, no redness. Full ROM without limitation, no external traumatic findings. Skin: No rashes or lesions to visualized skin. Normal color, warm, and dry. Neuro: Cranial nerves II-XII intact and symmetrical bilaterally. 5/5 strength in all muscle groups x4 extremities. No sensory deficits. Ambulates with steady gait. Psych: Appropriate for situation. Course Vital Signs Vital signs: Vital Signs Temperature 36.3 C L 03/21/25 07:51 Pulse 97 H 03/21/25 07:51 Respiratory Rate 16 03/21/25 07:51 Blood Pressure 133/69 03/21/25 07:51 Pulse Oximetry 99 03/21/25 07:51 Temperature 36.3 C L 03/21/25 07:51 Temperature Source Tympanic 03/21/25 07:51 Pulse 97 H 03/21/25 07:51 Respiratory Rate 16 03/21/25 07:51 Blood Pressure 133/69 03/21/25 07:51 Blood Pressure Position Sitting 03/21/25 07:51 Pulse Oximetry 99 03/21/25 07:51 Oxygen Delivery Method Room Air 03/21/25 07:51 Oxygen Flow Rate 0 03/21/25 07:51 Pain Level 5 03/21/25 07:51 Medical Decision Making This is a 29-year-old male patient presenting for evaluation of headache. Differential includes but is not limited to primary headache disorders including migraine, tension headache, cluster headache. Certainly considered intracranial hemorrhage given the patient's anticoagulated status, no thunderclap quality or neurodeficits to significantly increase my concern for SAH. The patient does not have any visual field cuts but pituitary mass and other intracranial masses were certainly on the differential. We will provide the patient with Tylenol, IV fluids, and Reglan (no Benadryl, patient reports an allergy), as primary management of his headache. Given his history we will obtain a CT scan of the brain without contrast to better evaluate for intracranial hemorrhage or mass effect. The patient had laboratory studies done on the first of this month (5 days ago) that were unchanged from his baseline, and at this time I do not see any significant benefit to repeating laboratory studies at this time. - CT scan reviewed by myself, as well as the radiology report. No evidence of intracranial hemorrhage, nor new mass or changes to the pituitary gland. On reevaluation the patient reports that his headache is resolved and he feels quite improved. I am most suspicious for a primary headache disorder such as migraine, tension, or cluster headaches. I counseled the patient on conservative headache management, and [facility]. At this time, the patient has had a full medical evaluation and is safe for discharge to home. They are hemodynamically stable, ambulatory, and tolerating PO. They are understanding of the follow-up plan and return precautions. They left our facility without incident. Tere Adams MD Quality:SDOH Health Related Social Needs: Health related social needs daily activities PFSH All Active Problems (Updated 03/21/25 @ 09:37 by Tere Adams MD) Headache (Acute) Hyperhomocysteinemia (Acute) Abdominal pain, epigastric (Acute) Chest pain, unspecified (Acute) Abdominal pain (Acute) Left-sided chest pain (Acute) Pulmonary infiltrates (Acute) Snoring (Acute) Pleural effusion (Acute) Arm pain, left (Acute) Chest pain (Acute) Rt groin pain (Acute) Bloody sputum (Acute) Left ankle sprain (Acute) Rash (Acute) Shortness of breath (Acute) Edema, peripheral (Acute) Anxiety (Chronic) Chest discomfort (Acute) Pulmonary embolism and infarction (Acute) Left pulmonary infiltrate on CXR (Acute) Bilateral pulmonary embolism (Acute) Tenderness of neck (Acute) Right elbow pain (Acute) Acute leg pain (Acute) Bronchitis (Acute) Well adult health check (Acute) Obstructive sleep apnea (Chronic) Metabolic dysfunction-associated fatty liver disease (MAFLD) (Acute) Fatty liver (Acute) IBS (irritable bowel syndrome) (Chronic) Obesity (Chronic) Migraine with aura (Acute) Testicle lump (Acute) Pes anserine bursitis (Acute) Left-sided Flower's palsy (Acute) Opiate dependence, continuous (Acute) 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 Possible 2' Methadone, Clnzpm (?). Surg eval (+)/No further action. History of electrolyte imbalance (Acute) Neck pain on left side (Acute) with shoulder, upper back pain.. torticollis, radiating into left hip/leg Pulmonary nodule 1 cm or greater in diameter (Chronic) Therapeutic opioid induced constipation (Acute) Sphincter of Oddi dysfunction (Chronic) Abnormal CT scan, kidney (Acute) Intrahepatic bile duct dilation (Acute) Common bile duct dilatation (Chronic) Has been dilated for quite some time, now more-so. Normal LFTs. Known gallstones. Depression (Chronic) Elevated parathyroid hormone (Acute) Family history of coronary arteriosclerosis (Chronic) Father of TX at 50, mother had TX at 42 Severe anxiety with panic (Chronic) Medical History Multiple endocrine neoplasia type I CKD (chronic kidney disease) stage 2, GFR 60-89 ml/min GFR 64-65, with Hx FLORESITA and GFR < 45 Primary hyperparathyroidism Complex medical condition Serious electrolyte imbalances, with gynecomastia, possible MEN Dx, CKD and anemia with baseline anxiety and Hx PTSD. Hypocalcemia Anxiety Depression Hyperlipidemia Family history of multiple endocrine neoplasia, type 1 PTSD (post-traumatic stress disorder) Per pt. states no triggers at this time. Surgical History History of laparoscopic cholecystectomy (~11/2023) H/O parathyroidectomy Family History Mother Anxiety Asthma Depression Sister Anxiety Depression Father Cancer lung & stomach Depression Diabetes Hypertension MEN 1 (multiple endocrine neoplasia) Social History Smoking/Tobacco Use Status: Never Smoking risk assessment performed?: Yes Alcohol Intake: never Drug use: Current Sobriety Substance use type: former substance user, crack/cocaine, heroin and painkillers Details: stopped using substances for the past 4 years Adopted: No Caregiver/Support person: No Foster care: No Household members: none Housing: apartment Number of Children: 0 Communication Needs: None Education Level: high school Do you need help understanding health information?: Never current occupation: [employer] Pets and animals: Yes (Ally) Pets and animals: dog(s) Sexually active: No Do you think of yourself as: straight/heterosexual Current gender identity: male What is your relationship status?: How often do you talk on the phone with friends or family?: twice per week How often do you get together with friends or relatives?: never Do you belong to any clubs or organized social groups?: no Panel score (0-1 are the most socially isolated patients): 0 What type of physical activity do you participate in: walking Duration: 15-30 minutes/day Frequency: 5-6 times per week Amryam/[employer] Special maryam needs: No Seatbelt use: always Helmet use: Yes Helmet use: always 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
[2025-03-21] MEDS: Lactated Ringers 1,000 ML 1000 ML IV (08:27)
[2025-03-21] MEDS: ACETAMINOPHEN 1,000 MG/100 ML BAG 400 MG IVPB (08:29)
[2025-03-21] MEDS: Metoclopramide 10 MG/2 ML VIAL IVP (08:29)
--- NOTE | 2025-03-21 09:09 | NUR.NOTE ---
Nursing Note: PT says he is actually feeling much better and is ready to be discharged
[2025-03-21] MEDS: Apixaban 5 MG TAB PO (09:15)
[2025-03-21 09:41] VITALS: BP 104/67; PULSE 82; TEMP 36.4; O2SAT 96
== END 2025-03-21 10:13 | disposition home or self-care (01) ==
PROVIDERS: Emergency Provider Emergency Medicine; PCP Physician Assistant
DX: R51.9 Headache, unspecified (principal); Z79.01 Long term (current) use of anticoagulants; Z86.018 Personal history of other benign neoplasm
CPT/HCPCS: 96361; 96374; 96375; 99284; 70450; J0131; J2765

== ENCOUNTER 2025-03-22 12:31 | Emergency (ER) | payer OTHER, SELFPAY ==
[2025-03-22] VITALS (21 sets, daily range): BP systolic 97–116; BP diastolic 49–78; PULSE 75–127; RESP 12–29; TEMP 36.3; O2SAT 94–100
--- NOTE | 2025-03-22 12:30 | RT.EKG_ITS ---
APPROVED REPORT Exam: Resting ECG Reason for Exam: elevated heart rate Patient Location: E HR:112 bpm ECG Measurements Heart Rate 112 AXIS [place] 178 P 45 QRSd 95 QRS 32 QT 341 T 25 QTc 466 Conclusion Sinus tachycardia, rate 112 No interval abnormalities No STEMI Compared to priors, rate is increased, but otherwsie no significant changes
--- NOTE | 2025-03-22 12:46 | W.ED.GENAD ---
Discharge Plan Disposition Patient Disposition: Home Condition: Good Discharge Details Clinical Impression: Heart palpitations Primary Care Provider: Sanjana Pritchett ED Provider: Steph Jones Home Meds and New Rx's Prescriptions: Continued gabapentin 300 mg capsule 300 mg PO BID Qty: 180 3RF omeprazole 40 mg capsule,delayed release(DR/EC) 40 mg PO DAILY Qty: 90 3RF lorazepam 1 mg tablet 1 mg PO DAILY PRN (Reason: anxiety) Qty: 10 0RF Rx Instructions: Use when considering ER visit cyclobenzaprine 10 mg tablet 10 mg PO TID PRN (Reason: muscle spasm) Qty: 30 3RF Eliquis 5 mg tablet 5 mg PO BID Qty: 60 6RF methadone 10 mg/5 mL solution 100 mg PO QAM calcitriol 0.5 mcg capsule 1 mcg PO .COMPLEX Qty: 270 3RF Rx Instructions: 1 mcg orally t2 tabs qam and 1 tab QHS; clonazepam 1 mg tablet 1 mg PO BID Qty: 10 0RF folic acid 1 mg tablet 1 mg PO DAILY Qty: 30 6RF calcium carbonate [Tums] 200 mg calcium (500 mg) tablet,chewable 2,000 mg PO BID prochlorperazine maleate 5 mg tablet 5 mg PO TID PRN (Reason: acute nausea) Qty: 30 0RF polyethylene glycol 3350 17 gram powder in packet 17 g PO BID PRN magnesium gluconate 27 mg magnesium (500 mg) tablet 500 mg PO BID Rx Instructions: takes 500mg QAM and 1000mg QHS diclofenac sodium 1 % gel 2 g topical QID Qty: 50 0RF Rx Instructions: apply to single elbow, wrist or hand; for hand includes palm/fingers/back of hand famotidine 20 mg tablet 20 mg PO BID Qty: 30 0RF sucralfate 1 gram tablet 1 g PO QACHS Qty: 90 0RF ondansetron 4 mg tablet,disintegrating 4 mg PO Q8H PRNQty: 20 0RF prochlorperazine maleate [Compazine] 10 mg tablet 10 mg PO Q6H PRNQty: 10 0RF Discharge Instructions Instructions: Palpitations ED Additional Instructions: As we discussed, your EKG, physical exam and labs are reassuring. You did not have any acute changes in any of these things. When you were experiencing palpitations, your heart rate was slightly elevated but this is likely associated with anxiety. I encourage that you continue with your anxiety care as this may help prevent future episodes. At your primary care appointment that is coming up, I encourage you to discuss your chronic anemia as well as your chronically elevated creatinine which is an indicator of kidney dysfunction. This did not change significantly today but should be something that you discuss with your provider. If you develop any chest pain shortness of breath or other new/worsening symptom please seek care urgently once again. Otherwise, please to try to reduce your anxiety is much as you can at home follow-up with your primary care. Referrals: Sanjana Pritchett [Primary Care Provider, Medicine] [facility] General Date/Time Provider Initiated Documentation: 03/22/25 12:33. Limitations to Documentation: no limitations. Information obtained by: patient, RN notes reviewed and old records reviewed. History of Present Illness 29 year old M presents to the emergency department with the chief complaint of palpitations, described as moderate and similar to prior episodes, Quality is described as other (no pain), and is localized to the chest. Patient started experiencing this minute(s) and it has been intermittent. No relieving factors improve symptom(s), Other factors that worsen symptoms (anxiety) . Patient notes no other symptoms.. Patient did receive the following treatments prior to arrival, none Related Data Home Medications ?Medication ?Instructions ?Recorded ?Confirmed calcium carbonate (Tums) 2,000 mg PO BID 02/02/23 03/22/25 methadone 10 mg/5 mL oral solution 100 mg PO QAM 06/12/23 03/22/25 prochlorperazine maleate 5 mg 5 mg PO TID PRN acute nausea #30 09/06/23 03/22/25 tablet tabs gabapentin 300 mg capsule 300 mg PO BID #180 caps 06/01/24 03/22/25 calcitriol 0.5 mcg capsule 1 mcg (2 x 0.5 mcg) PO .COMPLEX 06/29/24 03/22/25 #270 caps omeprazole 40 mg capsule,delayed 40 mg PO DAILY #90 caps 07/27/24 03/22/25 release polyethylene glycol 3350 17 gram 17 g PO BID PRN 10/15/24 03/22/25 oral powder packet lorazepam 1 mg tablet 1 mg PO DAILY PRN anxiety #10 tabs 10/19/24 03/22/25 cyclobenzaprine 10 mg tablet 10 mg PO TID PRN muscle spasm #30 11/16/24 03/22/25 tabs magnesium gluconate 27 mg 500 mg PO BID 01/30/25 03/22/25 magnesium (500 mg) tablet diclofenac sodium 1 % topical gel 2 g topical QID #50 grams 02/03/25 03/22/25 clonazepam 1 mg tablet 1 mg PO BID #10 tabs 02/08/25 03/22/25 apixaban 5 mg tablet (Eliquis) 5 mg PO BID #60 tabs 03/08/25 03/22/25 famotidine 20 mg tablet 20 mg PO BID #30 tabs 03/15/25 03/22/25 ondansetron 4 mg disintegrating 4 mg PO Q8H PRN #20 tabs 03/15/25 03/22/25 tablet sucralfate 1 gram tablet 1 g PO QACHS #90 tabs 03/15/25 03/22/25 prochlorperazine maleate 10 mg 10 mg PO Q6H PRN #10 tabs 03/16/25 03/22/25 tablet (Compazine) folic acid 1 mg tablet 1 mg PO DAILY #30 tabs 03/17/25 03/22/25 Previous Rx's ?Medication ?Instructions ?Recorded prochlorperazine maleate 5 mg 5 mg PO TID PRN acute nausea #30 09/06/23 tablet tabs gabapentin 300 mg capsule 300 mg PO BID #180 caps 06/01/24 calcitriol 0.5 mcg capsule 1 mcg (2 x 0.5 mcg) PO .COMPLEX 06/29/24 #270 caps omeprazole 40 mg capsule,delayed 40 mg PO DAILY #90 caps 07/27/24 release lorazepam 1 mg tablet 1 mg PO DAILY PRN anxiety #10 tabs 10/19/24 cyclobenzaprine 10 mg tablet 10 mg PO TID PRN muscle spasm #30 11/16/24 tabs diclofenac sodium 1 % topical gel 2 g topical QID #50 grams 02/03/25 clonazepam 1 mg tablet 1 mg PO BID #10 tabs 02/08/25 apixaban 5 mg tablet (Eliquis) 5 mg PO BID #60 tabs 03/08/25 famotidine 20 mg tablet 20 mg PO BID #30 tabs 03/15/25 ondansetron 4 mg disintegrating 4 mg PO Q8H PRN #20 tabs 03/15/25 tablet sucralfate 1 gram tablet 1 g PO QACHS #90 tabs 03/15/25 prochlorperazine maleate 10 mg 10 mg PO Q6H PRN #10 tabs 03/16/25 tablet (Compazine) folic acid 1 mg tablet 1 mg PO DAILY #30 tabs 03/17/25 Allergies Allergy/AdvReac Type Severity Reaction Status Date / Time Penicillins Allergy Skin Rash Verified 03/22/25 12:35 marijuana (cannabis) AdvReac Severe Paranoia Verified 03/22/25 12:35 amoxicillin AdvReac Intermediate Nausea Verified 03/22/25 12:35 codeine AdvReac Intermediate pass out Verified 03/22/25 12:35 dextromethorphan (From AdvReac Intermediate got Verified 03/22/25 12:35 NyQuil) really hot and sweaty doxylamine (From NyQuil) AdvReac Intermediate got Verified 03/22/25 12:35 really hot and sweaty pseudoephedrine (From NyQuil) AdvReac Intermediate got Verified 03/22/25 12:35 really hot and sweaty General Stated Complaint: Arrhythmia ADRIANA: 3 Review of Systems Constitutional Constitutional: Reports as per HPI, Denies chills, Denies fever(s) and Denies headache(s) ENT Ears, Nose, Mouth, and Throat: Denies dizziness and Denies headache(s) Cardiovascular Cardiovascular: Reports as per HPI, Denies dyspnea and Denies dyspnea on exertion Respiratory Respiratory: Reports as per HPI, Denies chest congestion, Denies cough, Denies pain on inspiration, Denies pain with cough, Denies dyspnea and Denies dyspnea on exertion Gastrointestinal Gastrointestinal: Denies diarrhea, Denies nausea and Denies vomiting Genitourinary Genitourinary: Denies system reviewed and no additional complaints, except as documented (denies change in urinary habits) Musculoskeletal Musculoskeletal: Reports as per HPI and Denies back pain Integumentary/Breasts Skin/Breast: Reports as per HPI and Denies rash Neurologic Neurologic: Reports as per HPI, Denies dizziness and Denies headache(s) Exam Const General: cooperative, healthy appearing, comfortable, no acute distress, well developed and anxious Nutritional Appearance: well nourished and overweight Orientation: alert, awake and oriented x3 Chest Chest: normal inspection of the chest, normal palpation of entire chest wall and no crepitus Resp Effort & Inspection: normal respiratory effort, able to speak in complete sentences and no respiratory distress Auscultation: clear to auscultation bilaterally, no rales, no rhonchi and no wheezes Cardio Rate: regular rate Rhythm: regular rhythm Heart Sounds: S1 normal and S2 normal Skin General skin exam: no rashes or lesions noted Trauma: no lacerations or abrasions Neuro General: patient alert, patient awake and patient oriented x3 Cognition: normal cognition Speech: speech normal Gait: normal gait Extrem General: normal to inspection, capillary refill normal, no pedal edema, no calf tenderness and normal gait Psych Appearance: grossly normal and well kempt Mental Status: mental status grossly normal Speech and Movement: speech and movement normal Mood: anxious mood Course Vital Signs Vital signs: Vital Signs Temperature 36.3 C L 03/22/25 12:32 Pulse 112 H 03/22/25 12:32 Respiratory Rate 20 03/22/25 12:32 Blood Pressure 115/78 03/22/25 12:32 Pulse Oximetry 95 03/22/25 12:32 Temperature 36.3 C L 03/22/25 12:32 Temperature Source Tympanic 03/22/25 12:32 Pulse 112 H 03/22/25 12:32 Respiratory Rate 20 03/22/25 12:32 Blood Pressure 115/78 03/22/25 12:32 Pulse Oximetry 95 03/22/25 12:32 Medical Decision Making Patient is a pleasant 29-year-old gentleman, well-known to myself and department, with past medical history significant for men type I, CKD, primary hyperparathyroidism, anxiety, depression, hyperlipidemia, PTSD, presenting with chief complaint of palpitations. He reports that he has had palpitations for a little while this afternoon. He states that he has had similar palpitations in the past. He denies any chest pain or shortness of breath. States palpitations came on after episode of being anxious about a change in his schedule today. He denies any recent change in his medications. Has not had any significant electrolyte derangements recently. On exam, patient appears nontoxic. Resting comfortably no acute distress. He has 2+ distal pulses. Patient slightly tachycardic at 112 but cardiac exam is otherwise within normal limits. He has sinus tach on his ECG. No murmurs rubs or gallops are appreciated. I discussed shortness palpitations at length with the patient. It sounds like this is likely anxiety provoked. I did discuss this at length with the patient and he believes that if he does not have further evaluation, he may be at risk for coming back again due to his anxiety continuing to be unresolved. Will obtain baseline blood work. With reassuring ECG, lack of chest pain and identifiable source of his symptoms, I have low suspicion for true ACS. Also considered electrolyte derangements, thyroid dysfunction. Labs reviewed and patient remains at his baseline. Patient is anemic as well with elevated creatinine both of which are at patient's baseline. He does have upcoming appoint with primary care and encouraged these chronic issues be addressed further at that time. I did encourage anxiety control and we did discuss some of these methods. Return precautions were discussed. All of his questions and concerns were addressed and he is in agreement this plan. Quality:SDOH Health Related Social Needs: Health related social needs daily activities PFSH All Active Problems (Updated 03/22/25 @ 14:40 by ANDREW Magaña) Heart palpitations (Acute) Headache (Acute) Hyperhomocysteinemia (Acute) Abdominal pain, epigastric (Acute) Chest pain, unspecified (Acute) Abdominal pain (Acute) Left-sided chest pain (Acute) Pulmonary infiltrates (Acute) Snoring (Acute) Pleural effusion (Acute) Arm pain, left (Acute) Chest pain (Acute) Rt groin pain (Acute) Bloody sputum (Acute) Left ankle sprain (Acute) Rash (Acute) Shortness of breath (Acute) Edema, peripheral (Acute) Anxiety (Chronic) Chest discomfort (Acute) Pulmonary embolism and infarction (Acute) Left pulmonary infiltrate on CXR (Acute) Bilateral pulmonary embolism (Acute) Tenderness of neck (Acute) Right elbow pain (Acute) Acute leg pain (Acute) Bronchitis (Acute) Well adult health check (Acute) Obstructive sleep apnea (Chronic) Metabolic dysfunction-associated fatty liver disease (MAFLD) (Acute) Fatty liver (Acute) IBS (irritable bowel syndrome) (Chronic) Obesity (Chronic) Migraine with aura (Acute) Testicle lump (Acute) Pes anserine bursitis (Acute) Left-sided Flower's palsy (Acute) Opiate dependence, continuous (Acute) 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 Possible 2' Methadone, Clnzpm (?). Surg eval (+)/No further action. History of electrolyte imbalance (Acute) Neck pain on left side (Acute) with shoulder, upper back pain.. torticollis, radiating into left hip/leg Pulmonary nodule 1 cm or greater in diameter (Chronic) Therapeutic opioid induced constipation (Acute) Sphincter of Oddi dysfunction (Chronic) Abnormal CT scan, kidney (Acute) Intrahepatic bile duct dilation (Acute) Common bile duct dilatation (Chronic) Has been dilated for quite some time, now more-so. Normal LFTs. Known gallstones. Depression (Chronic) Elevated parathyroid hormone (Acute) Family history of coronary arteriosclerosis (Chronic) Father of VT at 50, mother had VT at 42 Severe anxiety with panic (Chronic) Medical History Multiple endocrine neoplasia type I CKD (chronic kidney disease) stage 2, GFR 60-89 ml/min GFR 64-65, with Hx FLORESITA and GFR < 45 Primary hyperparathyroidism Complex medical condition Serious electrolyte imbalances, with gynecomastia, possible MEN Dx, CKD and anemia with baseline anxiety and Hx PTSD. Hypocalcemia Anxiety Depression Hyperlipidemia Family history of multiple endocrine neoplasia, type 1 PTSD (post-traumatic stress disorder) Per pt. states no triggers at this time. Surgical History History of laparoscopic cholecystectomy (~11/2023) H/O parathyroidectomy Family History Mother Anxiety Asthma Depression Sister Anxiety Depression Father Cancer lung & stomach Depression Diabetes Hypertension MEN 1 (multiple endocrine neoplasia) Social History Smoking/Tobacco Use Status: Never Smoking risk assessment performed?: Yes Alcohol Intake: never Drug use: Current Sobriety Substance use type: former substance user, crack/cocaine, heroin and painkillers Details: stopped using substances for the past 4 years Adopted: No Caregiver/Support person: No Foster care: No Household members: none Housing: apartment Number of Children: 0 Communication Needs: None Education Level: high school Do you need help understanding health information?: Never current occupation: [employer] Pets and animals: Yes (Ally) Pets and animals: dog(s) Sexually active: No Do you think of yourself as: straight/heterosexual Current gender identity: male What is your relationship status?: How often do you talk on the phone with friends or family?: twice per week How often do you get together with friends or relatives?: never Do you belong to any clubs or organized social groups?: no Panel score (0-1 are the most socially isolated patients): 0 What type of physical activity do you participate in: walking Duration: 15-30 minutes/day Frequency: 5-6 times per week Maryam/Pent[employer]al: [employer] Special maryam needs: No Seatbelt use: always Helmet use: Yes Helmet use: always Drive intox or ride w/intox 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
[2025-03-22] MEDS: Lactated Ringers 1,000 ML 1000 ML IV (13:00)
[2025-03-22 13:11] LABS: Abs Immature Grans 0.04 10^3/uL (0.0-0.06); HCT 29.0 % (40.0-50.0); HGB 8.9 g/dL (13.5-17.5); Immature Grans % 0.5 %; MCH 25.4 pg (27.0-33.0); MCHC 30.7 % (32.0-36.0); MCV 83 fL (80-95); MPV 9.8 fL (8.0-11.0); Platelet Count 304 10^3/uL (130-400); RBC 3.50 10^6/uL (4.36-5.78); RDW 16.4 % (11.8-14.1); RDW-SD 49.9 fL; WBC 8.04 10^3/uL (4.4-10.8)
[2025-03-22 13:31] LABS: Anisocytosis 2+; Hypochromasia 1+; Microcytosis 1+
[2025-03-22 13:46] LABS: ALT 40 U/L (16-63); AST 29 U/L (15-37); Albumin 3.3 g/dL (3.4-5.0); Alkaline Phosphatase 120 U/L (46-116); Anion Gap 8.5 mmol/L (3-11); BUN 17 mg/dL (7-18); Bilirubin, Total 0.2 mg/dL (0.2-1.0); CO2 31.5 mmol/L (21.0-32.0); Calcium 8.7 mg/dL (8.5-10.1); Chloride 100 mmol/L (98-107); Estimated GFR 58.71 (mL/min/1.73m2); Glucose 100 mg/dL (74-106); Magnesium 1.8 mg/dL (1.8-2.4); Potassium 3.6 mmol/L (3.5-5.1); Sodium 140 mmol/L (136-145); TSH (W/Ref FT4) 2.59 uIU/mL (0.36-3.74); Total Protein 7.6 g/dL (6.4-8.2)
[2025-03-22 13:56] LABS: Troponin I < 4 ng/L (<or=76)
[2025-03-22 15:15] LABS: Troponin I 4 ng/L (<or=76)
== END 2025-03-22 14:53 | disposition home or self-care (01) ==
PROVIDERS: Emergency Provider Physician Assistant; PCP Physician Assistant
DX: R00.2 Palpitations (principal); Z73.9 Problem related to life management difficulty, unspecified; F41.9 Anxiety disorder, unspecified
CPT/HCPCS: 36415; 80053; 93005; 96360; 99284; 83735; 84443; 84484; 85025; 93010; 99283

== ENCOUNTER 2025-03-24 12:06 | Emergency (ER) | payer OTHER, SELFPAY ==
[2025-03-24 12:07] VITALS: BP 131/82; PULSE 88; RESP 15; TEMP 37; O2SAT 97
[2025-03-24 12:26] LABS: Glucose Negative (Negative)
[2025-03-24 13:39] VITALS: BP 130/85; PULSE 75; RESP 18; TEMP 37; O2SAT 98
--- NOTE | 2025-03-24 14:07 | W.ED.GENAD ---
Discharge Plan Disposition Patient Disposition: Home Condition: Stable Discharge Details Clinical Impression: Back pain, Renal cyst Primary Care Provider: Sanjana Pritchett ED Provider: Tere Adams Home Meds and New Rx's Prescriptions: No Action gabapentin 300 mg capsule 300 mg PO BID Qty: 180 3RF omeprazole 40 mg capsule,delayed release(DR/EC) 40 mg PO DAILY Qty: 90 3RF lorazepam 1 mg tablet 1 mg PO DAILY PRN (Reason: anxiety) Qty: 10 0RF Rx Instructions: Use when considering ER visit cyclobenzaprine 10 mg tablet 10 mg PO TID PRN (Reason: muscle spasm) Qty: 30 3RF Eliquis 5 mg tablet 5 mg PO BID Qty: 60 6RF methadone 10 mg/5 mL solution 100 mg PO QAM calcitriol 0.5 mcg capsule 1 mcg PO .COMPLEX Qty: 270 3RF Rx Instructions: 1 mcg orally t2 tabs qam and 1 tab QHS; clonazepam 1 mg tablet 1 mg PO BID Qty: 10 0RF folic acid 1 mg tablet 1 mg PO DAILY Qty: 30 6RF calcium carbonate [Tums] 200 mg calcium (500 mg) tablet,chewable 2,000 mg PO BID prochlorperazine maleate 5 mg tablet 5 mg PO TID PRN (Reason: acute nausea) Qty: 30 0RF polyethylene glycol 3350 17 gram powder in packet 17 g PO BID PRN magnesium gluconate 27 mg magnesium (500 mg) tablet 500 mg PO BID Rx Instructions: takes 500mg QAM and 1000mg QHS diclofenac sodium 1 % gel 2 g topical QID Qty: 50 0RF Rx Instructions: apply to single elbow, wrist or hand; for hand includes palm/fingers/back of hand famotidine 20 mg tablet 20 mg PO BID Qty: 30 0RF sucralfate 1 gram tablet 1 g PO QACHS Qty: 90 0RF ondansetron 4 mg tablet,disintegrating 4 mg PO Q8H PRNQty: 20 0RF prochlorperazine maleate [Compazine] 10 mg tablet 10 mg PO Q6H PRNQty: 10 0RF Discharge Instructions Instructions: Upper Back Pain ED Additional Instructions: You were seen in the emergency department today for evaluation of mid back pain and frothy urine. In our department a full physical exam and you had a urinalysis that did not show any sign of protein in your urine or other abnormalities which would suggest worsening damage to your kidneys. You have an MRI scheduled to better evaluate the cysts that were found on your kidneys, and should keep this appointment. Your back pain could certainly be due to muscle strains, and you can use Tylenol and topical Lidoderm patches or gel safely with all of your home medications. You should also continue to take your prescribed cyclobenzaprine. Please follow-up with your primary care provider in the next few days to discuss this visit and any symptoms that change, worsen, or persist. Thank you for allowing us to be part of your care. HPI General Mode of arrival: ambulatory. Date/Time Provider Initiated Documentation: 03/24/25 12:15. Limitations to Documentation: no limitations. Information obtained by: patient and old records reviewed. HPI Narrative: This is a 29-year-old male patient with history of M EN, JOSE JUAN, pulmonary embolism on Eliquis, presenting for evaluation of back pain. He reports that for the last 2 days he has noted this back pain, it seems to be worse with twisting and movement, he has been treating it as a pulled muscle open to this point conservatively. He states that today he had a meeting with his pain medicine physician, and was walking around the hospital. He states that he mentioned that he has a history of elevated creatinines, which are slightly improving compared to his historical values. He also had an incidental note made of several renal cysts on one of his most recent CTs, for which he is scheduled to have an MRI for further characterization on the of this month given his history of M EN. He mentioned to the pain medicine physician that he has noted that his urine has been frothy recently, states that he has not noted any dysuria or hematuria. He presents today to ensure that he is not experiencing any renal dysfunction after considering all of the symptoms in context. The patient has otherwise been in his normal state of health, is taking all medications as prescribed, is not having fever, nausea or vomiting, and has not sustained injury or trauma. Related Data Home Medications ?Medication ?Instructions ?Recorded ?Confirmed calcium carbonate (Tums) 2,000 mg PO BID 02/02/23 03/24/25 methadone 10 mg/5 mL oral solution 100 mg PO QAM 06/12/23 03/24/25 prochlorperazine maleate 5 mg 5 mg PO TID PRN acute nausea #30 09/06/23 03/24/25 tablet tabs gabapentin 300 mg capsule 300 mg PO BID #180 caps 06/01/24 03/24/25 calcitriol 0.5 mcg capsule 1 mcg (2 x 0.5 mcg) PO .COMPLEX 06/29/24 03/24/25 #270 caps omeprazole 40 mg capsule,delayed 40 mg PO DAILY #90 caps 07/27/24 03/24/25 release polyethylene glycol 3350 17 gram 17 g PO BID PRN 10/15/24 03/24/25 oral powder packet lorazepam 1 mg tablet 1 mg PO DAILY PRN anxiety #10 tabs 10/19/24 03/24/25 cyclobenzaprine 10 mg tablet 10 mg PO TID PRN muscle spasm #30 11/16/24 03/24/25 tabs magnesium gluconate 27 mg 500 mg PO BID 01/30/25 03/24/25 magnesium (500 mg) tablet diclofenac sodium 1 % topical gel 2 g topical QID #50 grams 02/03/25 03/24/25 clonazepam 1 mg tablet 1 mg PO BID #10 tabs 02/08/25 03/24/25 apixaban 5 mg tablet (Eliquis) 5 mg PO BID #60 tabs 03/08/25 03/24/25 famotidine 20 mg tablet 20 mg PO BID #30 tabs 03/15/25 03/24/25 ondansetron 4 mg disintegrating 4 mg PO Q8H PRN #20 tabs 03/15/25 03/24/25 tablet sucralfate 1 gram tablet 1 g PO QACHS #90 tabs 03/15/25 03/24/25 prochlorperazine maleate 10 mg 10 mg PO Q6H PRN #10 tabs 03/16/25 03/24/25 tablet (Compazine) folic acid 1 mg tablet 1 mg PO DAILY #30 tabs 03/17/25 03/24/25 Previous Rx's ?Medication ?Instructions ?Recorded prochlorperazine maleate 5 mg 5 mg PO TID PRN acute nausea #30 09/06/23 tablet tabs gabapentin 300 mg capsule 300 mg PO BID #180 caps 06/01/24 calcitriol 0.5 mcg capsule 1 mcg (2 x 0.5 mcg) PO .COMPLEX 06/29/24 #270 caps omeprazole 40 mg capsule,delayed 40 mg PO DAILY #90 caps 07/27/24 release lorazepam 1 mg tablet 1 mg PO DAILY PRN anxiety #10 tabs 10/19/24 cyclobenzaprine 10 mg tablet 10 mg PO TID PRN muscle spasm #30 11/16/24 tabs diclofenac sodium 1 % topical gel 2 g topical QID #50 grams 02/03/25 clonazepam 1 mg tablet 1 mg PO BID #10 tabs 02/08/25 apixaban 5 mg tablet (Eliquis) 5 mg PO BID #60 tabs 03/08/25 famotidine 20 mg tablet 20 mg PO BID #30 tabs 03/15/25 ondansetron 4 mg disintegrating 4 mg PO Q8H PRN #20 tabs 03/15/25 tablet sucralfate 1 gram tablet 1 g PO QACHS #90 tabs 03/15/25 prochlorperazine maleate 10 mg 10 mg PO Q6H PRN #10 tabs 03/16/25 tablet (Compazine) folic acid 1 mg tablet 1 mg PO DAILY #30 tabs 03/17/25 Allergies Allergy/AdvReac Type Severity Reaction Status Date / Time Penicillins Allergy Skin Rash Verified 03/24/25 12:11 marijuana (cannabis) AdvReac Severe Paranoia Verified 03/24/25 12:11 amoxicillin AdvReac Intermediate Nausea Verified 03/24/25 12:11 codeine AdvReac Intermediate pass out Verified 03/24/25 12:11 dextromethorphan (From AdvReac Intermediate got Verified 03/24/25 12:11 NyQuil) really hot and sweaty doxylamine (From NyQuil) AdvReac Intermediate got Verified 03/24/25 12:11 really hot and sweaty pseudoephedrine (From NyQuil) AdvReac Intermediate got Verified 03/24/25 12:11 really hot and sweaty General Stated Complaint: Nk/Back Pain ADRIANA: 3 Exam Narrative Exam Narrative: Gen: Awake and alert, in no apparent distress HEENT: Non-icteric sclera Neck: Supple Lungs: No apparent respiratory distress, normal respiratory effort. CV: Appears well perfused, heart with regular rate and rhythm, strong distal pulses Abdomen: Non-distended MSK: Moves 4 extremities without apparent limitation in ROM. The patient has no midline T or L-spine tenderness nor step-offs. He has no overlying skin changes on the upper back, the discomfort in his back is not reproducible with palpation along the posterior costal margins, I palpate no muscular spasms. Skin: Visualized skin without rashes, cyanosis. Neuro: Normal Gait, no obvious focal deficits or facial asymmetry. Speaks in full, clear sentences. Psych: Appropriate for situation. Course Vital Signs Vital signs: Vital Signs Temperature 37.0 C 03/24/25 12:07 Pulse 88 03/24/25 12:07 Respiratory Rate 15 03/24/25 12:07 Blood Pressure 131/82 03/24/25 12:07 Pulse Oximetry 97 03/24/25 12:07 Temperature 37.0 C 03/24/25 13:39 Temperature Source Oral 03/24/25 13:39 Pulse 75 03/24/25 13:39 Respiratory Rate 18 03/24/25 13:39 Blood Pressure 130/85 03/24/25 13:39 Blood Pressure Position Sitting 03/24/25 13:39 Pulse Oximetry 98 03/24/25 13:39 Oxygen Delivery Method Room Air 03/24/25 13:39 Oxygen Flow Rate 0 03/24/25 12:07 Pain Level 4 03/24/25 13:39 Lab/Test Results Lab/Test Results: Laboratory Tests Range/Units 03/24/25 12:20 Urine Color (Yellow) Yellow Urine Clarity (Clear) Clear Urine pH (5-8) 7.0 Ur Specific [place] (1.005-1.025) 1.015 Urine Protein (Neg-Trace) mg/dL Negative Urine Ketones (Negative) mg/dL Negative Urine Blood (Negative) Negative Urine Nitrite (Negative) Negative Urine Bilirubin (Negative) Negative Urine Urobilinogen (Up to 0.2) mg/dL 0.2 Ur Leukocyte Esterase (Negative) Negative Urine Glucose (Negative) mg/dL Negative Medical Decision Making This is a 29-year-old male patient presenting for evaluation of frothy urine and back pain. Differential includes but is not limited to musculoskeletal etiologies including sprain/strain, no trauma to suggest fracture or dislocation, no muscular spasms palpable. I also considered renal dysfunction, including kidney stone, UTI, nephrotic/nephritic syndrome, FLORESITA. The patient has been maintaining hydration, does not have new hypoxia or tachycardia, and is taking his anticoagulants as prescribed, and a very low concern for intrapulmonary abnormalities such as pulmonary infarct, embolism, pneumonia, bronchitis, etc. We obtained a urinalysis which does not show any evidence of proteinuria or casts to suggest nephritic or nephrotic syndrome, is without infectious findings or hematuria. I shared this finding with the patient who reports that this was his primary concern. He had laboratory studies drawn 2 days ago that were within normal limits for him, and has excellent outpatient follow-up to continue to monitor this finding. I did spiritual counselor him that it is safe to add Tylenol and Lidoderm patches to his regimen, which he will trial over the next few days. At this time, the patient has had a full medical evaluation and is safe for discharge to home. They are hemodynamically stable, ambulatory, and tolerating PO. They are understanding of the follow-up plan and return precautions. They left our facility without incident. Tere Adams MD Quality:SDOH Health Related Social Needs: Health related social needs daily activities PFSH All Active Problems (Updated 03/24/25 @ 14:08 by Tere Adams MD) Renal cyst (Acute) Back pain (Acute) Heart palpitations (Acute) Headache (Acute) Hyperhomocysteinemia (Acute) Abdominal pain, epigastric (Acute) Chest pain, unspecified (Acute) Abdominal pain (Acute) Left-sided chest pain (Acute) Pulmonary infiltrates (Acute) Snoring (Acute) Pleural effusion (Acute) Arm pain, left (Acute) Chest pain (Acute) Rt groin pain (Acute) Bloody sputum (Acute) Left ankle sprain (Acute) Rash (Acute) Shortness of breath (Acute) Edema, peripheral (Acute) Anxiety (Chronic) Chest discomfort (Acute) Pulmonary embolism and infarction (Acute) Left pulmonary infiltrate on CXR (Acute) Bilateral pulmonary embolism (Acute) Tenderness of neck (Acute) Right elbow pain (Acute) Acute leg pain (Acute) Bronchitis (Acute) Well adult health check (Acute) Obstructive sleep apnea (Chronic) Metabolic dysfunction-associated fatty liver disease (MAFLD) (Acute) Fatty liver (Acute) IBS (irritable bowel syndrome) (Chronic) Obesity (Chronic) Migraine with aura (Acute) Testicle lump (Acute) Pes anserine bursitis (Acute) Left-sided Flower's palsy (Acute) Opiate dependence, continuous (Acute) 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 Possible 2' Methadone, Clnzpm (?). Surg eval (+)/No further action. History of electrolyte imbalance (Acute) Neck pain on left side (Acute) with shoulder, upper back pain.. torticollis, radiating into left hip/leg Pulmonary nodule 1 cm or greater in diameter (Chronic) Therapeutic opioid induced constipation (Acute) Sphincter of Oddi dysfunction (Chronic) Abnormal CT scan, kidney (Acute) Intrahepatic bile duct dilation (Acute) Common bile duct dilatation (Chronic) Has been dilated for quite some time, now more-so. Normal LFTs. Known gallstones. Depression (Chronic) Elevated parathyroid hormone (Acute) Family history of coronary arteriosclerosis (Chronic) Father of CA at 50, mother had CA at 42 Severe anxiety with panic (Chronic) Medical History Multiple endocrine neoplasia type I CKD (chronic kidney disease) stage 2, GFR 60-89 ml/min GFR 64-65, with Hx FLORESITA and GFR < 45 Primary hyperparathyroidism Complex medical condition Serious electrolyte imbalances, with gynecomastia, possible MEN Dx, CKD and anemia with baseline anxiety and Hx PTSD. Hypocalcemia Anxiety Depression Hyperlipidemia Family history of multiple endocrine neoplasia, type 1 PTSD (post-traumatic stress disorder) Per pt. states no triggers at this time. Surgical History History of laparoscopic cholecystectomy (~11/2023) H/O parathyroidectomy Family History Mother Anxiety Asthma Depression Sister Anxiety Depression Father Cancer lung & stomach Depression Diabetes Hypertension MEN 1 (multiple endocrine neoplasia) Social History Smoking/Tobacco Use Status: Never Smoking risk assessment performed?: Yes Alcohol Intake: never Drug use: Current Sobriety Substance use type: former substance user, crack/cocaine, heroin and painkillers Details: stopped using substances for the past 4 years Adopted: No Caregiver/Support person: No Foster care: No Household members: none Housing: apartment Number of Children: 0 Communication Needs: None Education Level: high school Do you need help understanding health information?: Never current occupation: [employer] Pets and animals: Yes (Ally) Pets and animals: dog(s) Sexually active: No Do you think of yourself as: straight/heterosexual Current gender identity: male What is your relationship status?: How often do you talk on the phone with friends or family?: twice per week How often do you get together with friends or relatives?: never Do you belong to any clubs or organized social groups?: no Panel score (0-1 are the most socially isolated patients): 0 What type of physical activity do you participate in: walking Duration: 15-30 minutes/day Frequency: 5-6 times per week Maryam/Yarsanism: Judaism Special maryam needs: No Seatbelt use: always Helmet use: Yes Helmet use: always Drive intox or ride w/intox dedicated regional driver: No Do you feel safe at home: Yes Do you feel safe in your relationship?: Yes
== END 2025-03-24 14:14 | disposition home or self-care (01) ==
PROVIDERS: Emergency Provider Emergency Medicine; PCP Physician Assistant
DX: M54.9 Dorsalgia, unspecified (principal); N28.1 Cyst of kidney, acquired; Z73.9 Problem related to life management difficulty, unspecified
CPT/HCPCS: 99283 ×2; 81003

== ENCOUNTER 2025-03-26 11:26 | Emergency (ER) | payer OTHER, SELFPAY ==
[2025-03-26] VITALS (21 sets, daily range): BP systolic 102–146; BP diastolic 57–87; PULSE 76–99; RESP 12–21; TEMP 37.2; O2SAT 91–96
--- NOTE | 2025-03-26 11:29 | W.ED.GENAD ---
Discharge Plan Disposition Patient Disposition: Home Discharge Details Clinical Impression: Coughing up blood, Normocytic anemia Primary Care Provider: Sanjana rPitchett ED Provider: Pedro Wolfe Home Meds and New Rx's Prescriptions: Continued gabapentin 300 mg capsule 300 mg PO BID Qty: 180 3RF omeprazole 40 mg capsule,delayed release(DR/EC) 40 mg PO DAILY Qty: 90 3RF lorazepam 1 mg tablet 1 mg PO DAILY PRN (Reason: anxiety) Qty: 10 0RF Rx Instructions: Use when considering ER visit cyclobenzaprine 10 mg tablet 10 mg PO TID PRN (Reason: muscle spasm) Qty: 30 3RF Eliquis 5 mg tablet 5 mg PO BID Qty: 60 6RF methadone 10 mg/5 mL solution 100 mg PO QAM calcitriol 0.5 mcg capsule 1 mcg PO .COMPLEX Qty: 270 3RF Rx Instructions: 1 mcg orally t2 tabs qam and 1 tab QHS; clonazepam 1 mg tablet 1 mg PO BID Qty: 10 0RF folic acid 1 mg tablet 1 mg PO DAILY Qty: 30 6RF calcium carbonate [Tums] 200 mg calcium (500 mg) tablet,chewable 2,000 mg PO BID prochlorperazine maleate 5 mg tablet 5 mg PO TID PRN (Reason: acute nausea) Qty: 30 0RF polyethylene glycol 3350 17 gram powder in packet 17 g PO BID PRN magnesium gluconate 27 mg magnesium (500 mg) tablet 500 mg PO BID Rx Instructions: takes 500mg QAM and 1000mg QHS diclofenac sodium 1 % gel 2 g topical QID Qty: 50 0RF Rx Instructions: apply to single elbow, wrist or hand; for hand includes palm/fingers/back of hand famotidine 20 mg tablet 20 mg PO BID Qty: 30 0RF sucralfate 1 gram tablet 1 g PO QACHS Qty: 90 0RF ondansetron 4 mg tablet,disintegrating 4 mg PO Q8H PRNQty: 20 0RF prochlorperazine maleate [Compazine] 10 mg tablet 10 mg PO Q6H PRNQty: 10 0RF Discharge Instructions Additional Instructions: You are seen in the emergency department after coughing up blood and feeling lightheaded. Your blood counts are similar to your prior blood counts from earlier this month. Your blood pressure is reassuring in the emergency department. If you are coughing of blood does not stop please return to the emergency department. Your blood work and your EKG showed no sign of a heart attack. Please follow-up with your primary care provider next week. Discharge Data Discharge Date/Time-TO BE ENTERED AT DEPARTURE: 03/26/25 13:59 HPI General Date/Time Provider Initiated Documentation: 03/26/25 11:28. HPI Narrative: MDM This is an overall quite well-appearing normothermic and not tachycardic 29-year-old male on apixaban with reported hypotension this morning and resolved chest pain for which patient undergo laboratory assessment in setting of his nonischemic ECG. ECG showing narrow complex sinus tachycardia rate of 104. Intervals within normal limits. Normal axis. No acute injury pattern. Appears similar to prior dated earlier this month. Given resolved chest pain and no tearing quality I am not concerned for aortic dissection. I considered breakthrough PE however the patient has only mild tachycardia no hypoxia and no hypotension. It does not sound as if he had large-volume hemoptysis however will observe in the emergency department to assess for any ongoing hemoptysis. Will obtain CBC to ensure he does not have any acute blood loss anemia. No trauma to chest and equal breath sounds so I am not suspicious for pneumothorax. No pain or proportion to suggest necrotizing soft tissue infection. Patient not been vomiting to suggest increased risk for esophageal rupture. His chest pain is nonpositional so not suspicious for pericarditis. He has visited the emergency department numerous times on prior occasions with similar complaints. Will use troponin to risk stratify and observe patient on telemetry to assess for any dysrhythmias. Also monitor for any ongoing hemoptysis. Initial blood pressure was quite reassuring in the ED. 12:20 PM CBC with persistent normocytic anemia slightly improved compared to prior. No leukocytosis. No thrombocytopenia. 1:20 PM Initial troponin 4. Basic metabolic panel showing CKD no superimposed FLORESITA. 1:52 PM Reassuring repeat troponin. No hemoptysis in the emergency department. We discussed return indications for syncope recurrent chest pain. Otherwise advised PCP follow-up in the next week. 3:40 PM I spoke with Pedro Pablo about his multiple ED visits in the past month. He noted that he had been feeling increasingly anxious. I asked if he had gotten into you with his primary care provider. He notes that he has upcoming mental health appointment with his PCP team next week. He understood his return indications and was discharged with an empiric trial of expectant outpatient management. He was not tachycardic nor hypotensive at the time of discharge. HEART SCORE Chest pain Diagnostic Protocol: [-History/Physical/Gestalt: Slightly Suspicious (0)] [-EKG: Normal and/or unchanged from prior EKG (0)] [-AGE: less than 45 (0)] [- RISK FACTORS: 1 - 2 risk factors (+1)] [-TROPONIN: <= normal limit (0)] - TOTAL SCORE: 1 - Risk Factors: DM, current or recent smoker, HTN, HLD, family hx of CAD, obesity - INTERPRETATION: With a total score of 3 or less, risk of major cardiac event within six weeks 1.7%, likely lower with two negative troponins. [I explained to the patient that the risk of subsequent major cardiac event within 1 month is not 0, however risk predicted to be less than 2%. Patient verbalized understanding, accepts this risk and shared and the decision for discharge with PCP follow-up for further evaluation and management. They understand to return to the ED immediately with any worsening symptoms, new symptoms or other concerns.] HPI This is a patient with a history of clots and a cyst on the kidneys presenting with low blood pressure. This morning, the patient experienced an unusual drop in blood pressure to 90s/60s, accompanied by lightheadedness and nausea. The patient's usual blood pressure is around 120/80. After resting for about 1.5 hours, the patient woke up feeling clammy. The patient has been experiencing lightheadedness for the past 3 days, with blood pressure consistently low at 105 to 110 over 60 to 70, which is not typical. The patient reports no instances of black or bloody stool and normal urination. The patient has not fainted but feels particularly lightheaded when standing or walking. The patient does not experience chest pain today, although some discomfort was felt upon waking up this morning. The patient has been under significant stress due to recent medical issues, including clots and a cyst on the kidneys. The patient is scheduled for an MRI on 04/07/2025. Exam General: Well-appearing in no acute distress speaking in complete sentences. Head: Normocephalic, atraumatic. Eye: Extraocular eye movements intact. No conjunctival injection. No scleral icterus. Ear, nose, mouth, throat: Grossly normal inspection. Normal voice, handling secretions normally. Neck: Trachea midline. Cardiovascular: Well-perfused distal extremities. Regular rate and rhythm Respiratory: Nonlabored respiration. Clear lungs bilaterally. Gastrointestinal: Nondistended abdomen. Musculoskeletal: No edema. Moving all 4 extremities spontaneously. Skin: Normal for age and race, grossly normal temperature and turgor. No acute rash. Neurologic: Alert and appropriate, no apparent acute deficits. Psychiatric: Mood and manner are appropriate. Grooming and personal hygiene are appropriate. Related Data Home Medications ?Medication ?Instructions ?Recorded ?Confirmed calcium carbonate (Tums) 2,000 mg PO BID 02/02/23 03/26/25 methadone 10 mg/5 mL oral solution 100 mg PO QAM 06/12/23 03/26/25 prochlorperazine maleate 5 mg 5 mg PO TID PRN acute nausea #30 09/06/23 03/26/25 tablet tabs gabapentin 300 mg capsule 300 mg PO BID #180 caps 06/01/24 03/26/25 calcitriol 0.5 mcg capsule 1 mcg (2 x 0.5 mcg) PO .COMPLEX 06/29/24 03/26/25 #270 caps omeprazole 40 mg capsule,delayed 40 mg PO DAILY #90 caps 07/27/24 03/26/25 release polyethylene glycol 3350 17 gram 17 g PO BID PRN 10/15/24 03/26/25 oral powder packet lorazepam 1 mg tablet 1 mg PO DAILY PRN anxiety #10 tabs 10/19/24 03/26/25 cyclobenzaprine 10 mg tablet 10 mg PO TID PRN muscle spasm #30 11/16/24 03/26/25 tabs magnesium gluconate 27 mg 500 mg PO BID 01/30/25 03/26/25 magnesium (500 mg) tablet diclofenac sodium 1 % topical gel 2 g topical QID #50 grams 02/03/25 03/26/25 clonazepam 1 mg tablet 1 mg PO BID #10 tabs 02/08/25 03/26/25 apixaban 5 mg tablet (Eliquis) 5 mg PO BID #60 tabs 03/08/25 03/26/25 famotidine 20 mg tablet 20 mg PO BID #30 tabs 03/15/25 03/26/25 ondansetron 4 mg disintegrating 4 mg PO Q8H PRN #20 tabs 03/15/25 03/26/25 tablet sucralfate 1 gram tablet 1 g PO QACHS #90 tabs 03/15/25 03/26/25 prochlorperazine maleate 10 mg 10 mg PO Q6H PRN #10 tabs 03/16/25 03/26/25 tablet (Compazine) folic acid 1 mg tablet 1 mg PO DAILY #30 tabs 03/17/25 03/26/25 Previous Rx's ?Medication ?Instructions ?Recorded prochlorperazine maleate 5 mg 5 mg PO TID PRN acute nausea #30 09/06/23 tablet tabs gabapentin 300 mg capsule 300 mg PO BID #180 caps 06/01/24 calcitriol 0.5 mcg capsule 1 mcg (2 x 0.5 mcg) PO .COMPLEX 06/29/24 #270 caps omeprazole 40 mg capsule,delayed 40 mg PO DAILY #90 caps 07/27/24 release lorazepam 1 mg tablet 1 mg PO DAILY PRN anxiety #10 tabs 10/19/24 cyclobenzaprine 10 mg tablet 10 mg PO TID PRN muscle spasm #30 11/16/24 tabs diclofenac sodium 1 % topical gel 2 g topical QID #50 grams 02/03/25 clonazepam 1 mg tablet 1 mg PO BID #10 tabs 02/08/25 apixaban 5 mg tablet (Eliquis) 5 mg PO BID #60 tabs 03/08/25 famotidine 20 mg tablet 20 mg PO BID #30 tabs 03/15/25 ondansetron 4 mg disintegrating 4 mg PO Q8H PRN #20 tabs 03/15/25 tablet sucralfate 1 gram tablet 1 g PO QACHS #90 tabs 03/15/25 prochlorperazine maleate 10 mg 10 mg PO Q6H PRN #10 tabs 03/16/25 tablet (Compazine) folic acid 1 mg tablet 1 mg PO DAILY #30 tabs 03/17/25 Allergies Allergy/AdvReac Type Severity Reaction Status Date / Time Penicillins Allergy Skin Rash Verified 03/26/25 11:34 marijuana (cannabis) AdvReac Severe Paranoia Verified 03/26/25 11:34 amoxicillin AdvReac Intermediate Nausea Verified 03/26/25 11:34 codeine AdvReac Intermediate pass out Verified 03/26/25 11:34 dextromethorphan (From AdvReac Intermediate got Verified 03/24/25 12:11 NyQuil) really hot and sweaty doxylamine (From NyQuil) AdvReac Intermediate got Verified 03/26/25 11:34 really hot and sweaty pseudoephedrine (From NyQuil) AdvReac Intermediate got Verified 03/26/25 11:34 really hot and sweaty General ADRIANA: 3 Medical Decision Making Quality:SDOH Health Related Social Needs: Health related social needs daily activities PFSH All Active Problems (Updated 03/26/25 @ 12:21 by Pedro Wolfe MD) Normocytic anemia (Acute) Coughing up blood (Acute) Renal cyst (Acute) Back pain (Acute) Heart palpitations (Acute) Headache (Acute) Hyperhomocysteinemia (Acute) Abdominal pain, epigastric (Acute) Chest pain, unspecified (Acute) Abdominal pain (Acute) Left-sided chest pain (Acute) Pulmonary infiltrates (Acute) Snoring (Acute) Pleural effusion (Acute) Arm pain, left (Acute) Chest pain (Acute) Rt groin pain (Acute) Bloody sputum (Acute) Left ankle sprain (Acute) Rash (Acute) Shortness of breath (Acute) Edema, peripheral (Acute) Anxiety (Chronic) Chest discomfort (Acute) Pulmonary embolism and infarction (Acute) Left pulmonary infiltrate on CXR (Acute) Bilateral pulmonary embolism (Acute) Tenderness of neck (Acute) Right elbow pain (Acute) Acute leg pain (Acute) Bronchitis (Acute) Well adult health check (Acute) Obstructive sleep apnea (Chronic) Metabolic dysfunction-associated fatty liver disease (MAFLD) (Acute) Fatty liver (Acute) IBS (irritable bowel syndrome) (Chronic) Obesity (Chronic) Migraine with aura (Acute) Testicle lump (Acute) Pes anserine bursitis (Acute) Left-sided Flower's palsy (Acute) Opiate dependence, continuous (Acute) 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 Possible 2' Methadone, Clnzpm (?). Surg eval (+)/No further action. History of electrolyte imbalance (Acute) Neck pain on left side (Acute) with shoulder, upper back pain.. torticollis, radiating into left hip/leg Pulmonary nodule 1 cm or greater in diameter (Chronic) Therapeutic opioid induced constipation (Acute) Sphincter of Oddi dysfunction (Chronic) Abnormal CT scan, kidney (Acute) Intrahepatic bile duct dilation (Acute) Common bile duct dilatation (Chronic) Has been dilated for quite some time, now more-so. Normal LFTs. Known gallstones. Depression (Chronic) Elevated parathyroid hormone (Acute) Family history of coronary arteriosclerosis (Chronic) Father of CA at 50, mother had CA at 42 Severe anxiety with panic (Chronic) Medical History Multiple endocrine neoplasia type I CKD (chronic kidney disease) stage 2, GFR 60-89 ml/min GFR 64-65, with Hx FLORESITA and GFR < 45 Primary hyperparathyroidism Complex medical condition Serious electrolyte imbalances, with gynecomastia, possible MEN Dx, CKD and anemia with baseline anxiety and Hx PTSD. Hypocalcemia Anxiety Depression Hyperlipidemia Family history of multiple endocrine neoplasia, type 1 PTSD (post-traumatic stress disorder) Per pt. states no triggers at this time. Surgical History History of laparoscopic cholecystectomy (~11/2023) H/O parathyroidectomy Family History Mother Anxiety Asthma Depression Sister Anxiety Depression Father Cancer lung & stomach Depression Diabetes Hypertension MEN 1 (multiple endocrine neoplasia) Social History Smoking/Tobacco Use Status: Never Smoking risk assessment performed?: Yes Alcohol Intake: never Drug use: Current Sobriety Substance use type: former substance user, crack/cocaine, heroin and painkillers Details: stopped using substances for the past 4 years Adopted: No Caregiver/Support person: No Foster care: No Household members: none Housing: apartment Number of Children: 0 Communication Needs: None Education Level: high school Do you need help understanding health information?: Never 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[employer] Pets and animals: Yes (Ally) Pets and animals: dog(s) Sexually active: No Do you think of yourself as: straight/heterosexual Current gender identity: male What is your relationship status?: How often do you talk on the phone with friends or family?: twice per week How often do you get together with friends or relatives?: never Do you belong to any clubs or organized social groups?: no Panel score (0-1 are the most socially isolated patients): 0 What type of physical activity do you participate in: walking Duration: 15-30 minutes/day Frequency: 5-6 times per week Maryam/[employer]ist: [employer] Special maryam needs: No Seatbelt use: always Helmet use: Yes Helmet use: always Drive intox or ride w/intox garbage collector driver: No Do you feel safe at home: Yes Do you feel safe in your relationship?: Yes
--- NOTE | 2025-03-26 11:30 | RT.EKG_ITS ---
APPROVED REPORT Exam: Resting ECG Reason for Exam: Weakness Patient Location: E HR:104 bpm ECG Measurements Heart Rate 104 AXIS ND 161 P 40 QRSd 94 QRS 3 QT 342 T 25 QTc 449 Conclusion Sinus tachycardia...rate> 99 No Occlusion [place]
[2025-03-26 12:12] LABS: Abs Immature Grans 0.02 10^3/uL (0.0-0.06); HCT 29.5 % (40.0-50.0); HGB 9.0 g/dL (13.5-17.5); Immature Grans % 0.3 %; MCH 24.9 pg (27.0-33.0); MCHC 30.5 % (32.0-36.0); MCV 82 fL (80-95); MPV 10.4 fL (8.0-11.0); Platelet Count 342 10^3/uL (130-400); RBC 3.61 10^6/uL (4.36-5.78); RDW 16.4 % (11.8-14.1); RDW-SD 48.9 fL; WBC 6.28 10^3/uL (4.4-10.8)
[2025-03-26 13:02] LABS: Anion Gap 6.5 mmol/L (3-11); BUN 15 mg/dL (7-18); CO2 32.5 mmol/L (21.0-32.0); Calcium 8.6 mg/dL (8.5-10.1); Chloride 101 mmol/L (98-107); Estimated GFR 68.91 (mL/min/1.73m2); Glucose 98 mg/dL (74-106); Potassium 3.9 mmol/L (3.5-5.1); Sodium 140 mmol/L (136-145); Troponin I 4 ng/L (<or=76)
[2025-03-26 13:44] LABS: Troponin I < 4 ng/L (<or=76)
== END 2025-03-26 13:59 | disposition home or self-care (01) ==
PROVIDERS: Emergency Provider Emergency Medicine; PCP Physician Assistant
DX: R04.2 Hemoptysis (principal); D64.9 Anemia, unspecified; Z73.9 Problem related to life management difficulty, unspecified; R42 Dizziness and giddiness
CPT/HCPCS: 99283; 99284; 36415; 80048; 93005; 99285; 84484; 85025; 93010

== ENCOUNTER 2025-03-27 06:40 | Emergency (ER) | payer OTHER, SELFPAY ==
[2025-03-27 06:44] VITALS: BP 141/51; PULSE 101; RESP 20; TEMP 36.5; O2SAT 97
[2025-03-27 06:47] VITALS: BP 141/51; PULSE 101; RESP 20; TEMP 36.5; O2SAT 97
--- NOTE | 2025-03-27 06:58 | W.ED.GENAD ---
Discharge Plan Disposition Patient Disposition: Home Discharge Details Clinical Impression: Abdominal pain Primary Care Provider: Sanjana Pritchett ED Provider: Pedro Wolfe [place] Meds and New Rx's Prescriptions: Continued gabapentin 300 mg capsule 300 mg PO BID Qty: 180 3RF omeprazole 40 mg capsule,delayed release(DR/EC) 40 mg PO DAILY Qty: 90 3RF lorazepam 1 mg tablet 1 mg PO DAILY PRN (Reason: anxiety) Qty: 10 0RF Rx Instructions: Use when considering ER visit cyclobenzaprine 10 mg tablet 10 mg PO TID PRN (Reason: muscle spasm) Qty: 30 3RF Eliquis 5 mg tablet 5 mg PO BID Qty: 60 6RF methadone 10 mg/5 mL solution 100 mg PO QAM calcitriol 0.5 mcg capsule 1 mcg PO .COMPLEX Qty: 270 3RF Rx Instructions: 1 mcg orally t2 tabs qam and 1 tab QHS; clonazepam 1 mg tablet 1 mg PO BID Qty: 10 0RF folic acid 1 mg tablet 1 mg PO DAILY Qty: 30 6RF calcium carbonate [Tums] 200 mg calcium (500 mg) tablet,chewable 2,000 mg PO BID prochlorperazine maleate 5 mg tablet 5 mg PO TID PRN (Reason: acute nausea) Qty: 30 0RF polyethylene glycol 3350 17 gram powder in packet 17 g PO BID PRN magnesium gluconate 27 mg magnesium (500 mg) tablet 500 mg PO BID Rx Instructions: takes 500mg QAM and 1000mg QHS diclofenac sodium 1 % gel 2 g topical QID Qty: 50 0RF Rx Instructions: apply to single elbow, wrist or hand; for hand includes palm/fingers/back of hand famotidine 20 mg tablet 20 mg PO BID Qty: 30 0RF sucralfate 1 gram tablet 1 g PO QACHS Qty: 90 0RF ondansetron 4 mg tablet,disintegrating 4 mg PO Q8H PRNQty: 20 0RF prochlorperazine maleate [Compazine] 10 mg tablet 10 mg PO Q6H PRNQty: 10 0RF Discharge Instructions Additional Instructions: You were seen in the emergency department for your abdominal pain. Your exam was quite reassuring. We decided not to obtain any blood work or CAT scan at this juncture. If your symptoms worsen if you cannot eat or drink or if you begin vomiting and it does not stop please return to the emergency department. Otherwise please follow-up with primary care provider next week. Discharge Data Discharge Date/Time-TO BE ENTERED AT DEPARTURE: 03/27/25 07:46 HPI General Date/Time Provider Initiated Documentation: 03/27/25 06:58. HPI Narrative: MDM This is a quite well-appearing mildly tachycardic but normothermic 29-year-old male with lower abdominal pain and quite reassuring exam for which patient will receive analgesia and observation in the emergency department. Patient has no right lower quadrant tenderness to suggest appendicitis. No left lower quadrant tenderness nor diarrhea to suggest diverticulitis. I considered small bowel obstruction as the patient has had a remote cholecystectomy. In the absence of any vomiting and generalized abdominal pain my suspicion for small bowel obstruction was low. Patient has no pain out of proportion to suggest necrotizing soft tissue infection. No rash to abdomen to suggest zoster. Given bilateral lower quadrant symptoms my suspicion for ureterallithiasis is low. Patient has no history of aneurysm to suggest increased risk for ruptured AAA. Furthermore he has no pulsatile masses and is not a tobacco user. No chest pain to suggest ACS so I did not feel patient required an ECG. No black nor bloody stools to suggest acute GI bleed. Given apixaban use will provide acetaminophen and Lidoderm patch for analgesia. Patient has not been vomiting so my suspicion for any acute electrolyte abnormalities is low so I do not feel patient requires assessment of his labs. Furthermore he has had labs less than 24 hours ago which were reassuring. I considered testicular torsion however in the absence of testicular pain felt that this was less likely. No dysuria nor frequency to suggest UTI. Patient I discussed at length risks and the benefits of obtaining a CT scan of his abdomen. Patient has had multiple abdominal CTs and chest CTs in the recent past. We discussed the risks of radiation and using shared decision making elected to defer cross-sectional imaging at this juncture. 9:43 AM Late charting due to patient care. Patient tolerated p.o. in the emergency department neither nausea nor vomiting. This did not increase his pain. We discussed return indications. Patient understood his return indications and was discharged with empiric trial of expectant outpatient management. HPI This is a 29-year-old male with a history of kidney stones presenting with abdominal pain. The patient began experiencing pain in the lower right side of his abdomen, near the belt line, around 6:00 PM on 03/26/2025. He describes the pain as intense, feeling like he had performed numerous crunches, despite not engaging in any strenuous activity. The onset of the pain was sudden, occurring when he leaned forward to get a drink. Initially, he thought it might be a muscle strain, but the pain intensified overnight, becoming two to three times worse by the morning of 03/27/2025. The pain radiates from the upper left side down to his belt line. He also experienced nausea due to the severity of the pain, which brought tears to his eyes. He has not vomited and reports no fever, although his temperature was nearly 100 degrees during triage yesterday. He reports no burning sensation during urination or testicular pain. 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 He experiences a slight burning sensation when urinating, but this is not new. A urine test conducted yesterday showed normal results. He reports no rashes. He is unsure if the pain is originating from his stomach or back. He has not taken his blood thinner today, which he usually takes at 7:00 AM. He took Tylenol PM last night, which helped him sleep. He has a history of kidney stones, which typically cause back pain, but this is the first time he has experienced front abdominal pain. He has undergone gallbladder surgery in the past. PAST SURGICAL HISTORY: Gallbladder surgery Exam General: Well-appearing in no acute distress speaking in complete sentences. Head: Normocephalic, atraumatic. Eye: Extraocular eye movements intact. No conjunctival injection. No scleral icterus. Ear, nose, mouth, throat: Grossly normal inspection. Normal voice, handling secretions normally. Neck: Trachea midline. Cardiovascular: Well-perfused distal extremities. Regular rate and rhythm. Respiratory: Nonlabored respiration. Clear lungs bilaterally. Gastrointestinal: Nondistended abdomen. Soft. Nontender. No rebound. No guarding. Musculoskeletal: No edema. Moving all 4 extremities spontaneously. Skin: Normal for age and race, grossly normal temperature and turgor. No acute rash. Neurologic: Alert and appropriate, no apparent acute deficits. Psychiatric: Mood and manner are appropriate. Grooming and personal hygiene are appropriate. Related Data Home Medications ?Medication ?Instructions ?Recorded ?Confirmed calcium carbonate (Tums) 2,000 mg PO BID 02/02/23 03/27/25 methadone 10 mg/5 mL oral solution 100 mg PO QAM 06/12/23 03/27/25 prochlorperazine maleate 5 mg 5 mg PO TID PRN acute nausea #30 09/06/23 03/27/25 tablet tabs gabapentin 300 mg capsule 300 mg PO BID #180 caps 06/01/24 03/27/25 calcitriol 0.5 mcg capsule 1 mcg (2 x 0.5 mcg) PO .COMPLEX 06/29/24 03/27/25 #270 caps omeprazole 40 mg capsule,delayed 40 mg PO DAILY #90 caps 07/27/24 03/27/25 release polyethylene glycol 3350 17 gram 17 g PO BID PRN 10/15/24 03/27/25 oral powder packet lorazepam 1 mg tablet 1 mg PO DAILY PRN anxiety #10 tabs 10/19/24 03/27/25 cyclobenzaprine 10 mg tablet 10 mg PO TID PRN muscle spasm #30 11/16/24 03/27/25 tabs magnesium gluconate 27 mg 500 mg PO BID 01/30/25 03/27/25 magnesium (500 mg) tablet diclofenac sodium 1 % topical gel 2 g topical QID #50 grams 02/03/25 03/27/25 clonazepam 1 mg tablet 1 mg PO BID #10 tabs 02/08/25 03/27/25 apixaban 5 mg tablet (Eliquis) 5 mg PO BID #60 tabs 03/08/25 03/27/25 famotidine 20 mg tablet 20 mg PO BID #30 tabs 03/15/25 03/27/25 ondansetron 4 mg disintegrating 4 mg PO Q8H PRN #20 tabs 03/15/25 03/27/25 tablet sucralfate 1 gram tablet 1 g PO QACHS #90 tabs 03/15/25 03/27/25 prochlorperazine maleate 10 mg 10 mg PO Q6H PRN #10 tabs 03/16/25 03/27/25 tablet (Compazine) folic acid 1 mg tablet 1 mg PO DAILY #30 tabs 03/17/25 03/27/25 Previous Rx's ?Medication ?Instructions ?Recorded prochlorperazine maleate 5 mg 5 mg PO TID PRN acute nausea #30 09/06/23 tablet tabs gabapentin 300 mg capsule 300 mg PO BID #180 caps 06/01/24 calcitriol 0.5 mcg capsule 1 mcg (2 x 0.5 mcg) PO .COMPLEX 06/29/24 #270 caps omeprazole 40 mg capsule,delayed 40 mg PO DAILY #90 caps 07/27/24 release lorazepam 1 mg tablet 1 mg PO DAILY PRN anxiety #10 tabs 10/19/24 cyclobenzaprine 10 mg tablet 10 mg PO TID PRN muscle spasm #30 11/16/24 tabs diclofenac sodium 1 % topical gel 2 g topical QID #50 grams 02/03/25 clonazepam 1 mg tablet 1 mg PO BID #10 tabs 02/08/25 apixaban 5 mg tablet (Eliquis) 5 mg PO BID #60 tabs 03/08/25 famotidine 20 mg tablet 20 mg PO BID #30 tabs 03/15/25 ondansetron 4 mg disintegrating 4 mg PO Q8H PRN #20 tabs 03/15/25 tablet sucralfate 1 gram tablet 1 g PO QACHS #90 tabs 03/15/25 prochlorperazine maleate 10 mg 10 mg PO Q6H PRN #10 tabs 03/16/25 tablet (Compazine) folic acid 1 mg tablet 1 mg PO DAILY #30 tabs 03/17/25 Allergies Allergy/AdvReac Type Severity Reaction Status Date / Time Penicillins Allergy Skin Rash Verified 03/27/25 06:46 marijuana (cannabis) AdvReac Severe Paranoia Verified 03/27/25 06:46 amoxicillin AdvReac Intermediate Nausea Verified 03/27/25 06:46 codeine AdvReac Intermediate pass out Verified 03/27/25 06:46 dextromethorphan (From AdvReac Intermediate got Verified 03/27/25 06:46 NyQuil) really hot and sweaty doxylamine (From NyQuil) AdvReac Intermediate got Verified 03/27/25 06:46 really hot and sweaty pseudoephedrine (From NyQuil) AdvReac Intermediate got Verified 03/27/25 06:46 really hot and sweaty General Stated Complaint: Abd Prob ADRIANA: 3 Course Vital Signs Vital signs: Vital Signs Temperature 36.5 C 03/27/25 06:44 Pulse 101 H 03/27/25 06:44 Respiratory Rate 20 03/27/25 06:44 Blood Pressure 141/51 H 03/27/25 06:44 Pulse Oximetry 97 03/27/25 06:44 Temperature 36.5 C 03/27/25 06:47 Pulse 101 H 03/27/25 06:47 Respiratory Rate 20 03/27/25 06:47 Blood Pressure 141/51 H 03/27/25 06:47 Pulse Oximetry 97 03/27/25 06:47 Medical Decision Making Quality:SDOH Health Related Social Needs: Health related social needs daily activities PFSH All Active Problems (Updated 03/27/25 @ 07:31 by Pedro Wolfe MD) Abdominal pain (Acute) Normocytic anemia (Acute) Coughing up blood (Acute) Renal cyst (Acute) Back pain (Acute) Heart palpitations (Acute) Headache (Acute) Hyperhomocysteinemia (Acute) Abdominal pain, epigastric (Acute) Chest pain, unspecified (Acute) Abdominal pain (Acute) Left-sided chest pain (Acute) Pulmonary infiltrates (Acute) Snoring (Acute) Pleural effusion (Acute) Arm pain, left (Acute) Chest pain (Acute) Rt groin pain (Acute) Bloody sputum (Acute) Left ankle sprain (Acute) Rash (Acute) Shortness of breath (Acute) Edema, peripheral (Acute) Anxiety (Chronic) Chest discomfort (Acute) Pulmonary embolism and infarction (Acute) Left pulmonary infiltrate on CXR (Acute) Bilateral pulmonary embolism (Acute) Tenderness of neck (Acute) Right elbow pain (Acute) Acute leg pain (Acute) Bronchitis (Acute) Well adult health check (Acute) Obstructive sleep apnea (Chronic) Metabolic dysfunction-associated fatty liver disease (MAFLD) (Acute) Fatty liver (Acute) IBS (irritable bowel syndrome) (Chronic) Obesity (Chronic) Migraine with aura (Acute) Testicle lump (Acute) Pes anserine bursitis (Acute) Left-sided Flower's palsy (Acute) Opiate dependence, continuous (Acute) 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 Possible 2' Methadone, Clnzpm (?). Surg eval (+)/No further action. History of electrolyte imbalance (Acute) Neck pain on left side (Acute) with shoulder, upper back pain.. torticollis, radiating into left hip/leg Pulmonary nodule 1 cm or greater in diameter (Chronic) Therapeutic opioid induced constipation (Acute) Sphincter of Oddi dysfunction (Chronic) Abnormal CT scan, kidney (Acute) Intrahepatic bile duct dilation (Acute) Common bile duct dilatation (Chronic) Has been dilated for quite some time, now more-so. Normal LFTs. Known gallstones. Depression (Chronic) Elevated parathyroid hormone (Acute) Family history of coronary arteriosclerosis (Chronic) Father of TX at 50, mother had TX at 42 Severe anxiety with panic (Chronic) Medical History Multiple endocrine neoplasia type I CKD (chronic kidney disease) stage 2, GFR 60-89 ml/min GFR 64-65, with Hx FLORESITA and GFR < 45 Primary hyperparathyroidism Complex medical condition Serious electrolyte imbalances, with gynecomastia, possible MEN Dx, CKD and anemia with baseline anxiety and Hx PTSD. Hypocalcemia Anxiety Depression Hyperlipidemia Family history of multiple endocrine neoplasia, type 1 PTSD (post-traumatic stress disorder) Per pt. states no triggers at this time. Surgical History History of laparoscopic cholecystectomy (~11/2023) H/O parathyroidectomy Family History Mother Anxiety Asthma Depression Sister Anxiety Depression Father Cancer lung & stomach Depression Diabetes Hypertension MEN 1 (multiple endocrine neoplasia) Social History Smoking/Tobacco Use Status: Never Smoking risk assessment performed?: Yes Alcohol Intake: never Drug use: Current Sobriety Substance use type: former substance user, crack/cocaine, heroin and painkillers Details: stopped using substances for the past 4 years Adopted: No Caregiver/Support person: No Foster care: No Household members: none Housing: apartment Number of Children: 0 Communication Needs: None Education Level: high school Do you need help understanding health information?: Never current occupation: [employer] Pets and animals: Yes (Ally) Pets and animals: dog(s) Sexually active: No Do you think of yourself as: straight/heterosexual Current gender identity: male What is your relationship status?: How often do you talk on the phone with friends or family?: twice per week How often do you get together with friends or relatives?: never Do you belong to any clubs or organized social groups?: no Panel score (0-1 are the most socially isolated patients): 0 What type of physical activity do you participate in: walking Duration: 15-30 minutes/day Frequency: 5-6 times per week Maryam/Christianity: L[employer] Day Special maryam needs: No Seatbelt use: always Helmet use: Yes Helmet use: always Drive 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
[2025-03-27 07:09] VITALS: PULSE 88; O2SAT 94
[2025-03-27 07:10] VITALS: PULSE 91; O2SAT 95
[2025-03-27 07:16] VITALS: BP 124/67; PULSE 89; O2SAT 94
[2025-03-27] MEDS: Acetaminophen 500 MG TAB 1000 MG PO (07:18)
[2025-03-27] MEDS: Apixaban 5 MG TAB PO (07:18)
[2025-03-27] MEDS: Lidocaine 5% Patch 2 PATCH TP (07:18)
[2025-03-27 07:44] VITALS: BP 109/47; PULSE 86; RESP 18; O2SAT 96
== END 2025-03-27 07:46 | disposition home or self-care (01) ==
PROVIDERS: Emergency Provider Emergency Medicine; PCP Physician Assistant
DX: R10.32 Left lower quadrant pain (principal)
CPT/HCPCS: 99283 ×2

== ENCOUNTER 2025-03-29 15:57 | Emergency (ER) | payer OTHER, SELFPAY ==
[2025-03-29 16:15] VITALS: BP 134/74; PULSE 98; RESP 18; TEMP 37.1; O2SAT 94
--- NOTE | 2025-03-29 16:15 | RT.EKG_ITS ---
APPROVED REPORT Exam: Resting ECG Reason for Exam: Chest Pain, Dizziness Patient Location: E HR:98 bpm ECG Measurements Heart Rate 98 AXIS IA 178 P 40 QRSd 93 QRS 9 QT 359 T 25 QTc 459 Conclusion Sinus rhythm...normal P axis, V-rate 60- [address] segment or T wave abnormalities to suggest occlusive MS
--- NOTE | 2025-03-29 16:50 | W.ED.GENAD ---
Discharge Plan Disposition Patient Disposition: Home Condition: Good Discharge Details Clinical Impression: Panic attack Primary Care Provider: Sanjana Pritchett ED Provider: Kimberli Martinez Home Meds and New Rx's Prescriptions: New lorazepam [Ativan] 1 mg tablet 1 mg PO DAILY PRNQty: 4 0RF Continued gabapentin 300 mg capsule 300 mg PO BID Qty: 180 3RF omeprazole 40 mg capsule,delayed release(DR/EC) 40 mg PO DAILY Qty: 90 3RF lorazepam 1 mg tablet 1 mg PO DAILY PRN (Reason: anxiety) Qty: 10 0RF Rx Instructions: Use when considering ER visit cyclobenzaprine 10 mg tablet 10 mg PO TID PRN (Reason: muscle spasm) Qty: 30 3RF Eliquis 5 mg tablet 5 mg PO BID Qty: 60 6RF methadone 10 mg/5 mL solution 100 mg PO QAM calcitriol 0.5 mcg capsule 1 mcg PO .COMPLEX Qty: 270 3RF Rx Instructions: 1 mcg orally t2 tabs qam and 1 tab QHS; clonazepam 1 mg tablet 1 mg PO BID Qty: 10 0RF folic acid 1 mg tablet 1 mg PO DAILY Qty: 30 6RF calcium carbonate [Tums] 200 mg calcium (500 mg) tablet,chewable 2,000 mg PO BID prochlorperazine maleate 5 mg tablet 5 mg PO TID PRN (Reason: acute nausea) Qty: 30 0RF polyethylene glycol 3350 17 gram powder in packet 17 g PO BID PRN magnesium gluconate 27 mg magnesium (500 mg) tablet 500 mg PO BID Rx Instructions: takes 500mg QAM and 1000mg QHS diclofenac sodium 1 % gel 2 g topical QID Qty: 50 0RF Rx Instructions: apply to single elbow, wrist or hand; for hand includes palm/fingers/back of hand famotidine 20 mg tablet 20 mg PO BID Qty: 30 0RF sucralfate 1 gram tablet 1 g PO QACHS Qty: 90 0RF ondansetron 4 mg tablet,disintegrating 4 mg PO Q8H PRNQty: 20 0RF prochlorperazine maleate [Compazine] 10 mg tablet 10 mg PO Q6H PRNQty: 10 0RF Discharge Instructions Instructions: Panic Attack ED Additional Instructions: Take all of your medications as prescribed. Call your primary care doctor in the morning to schedule an appointment for within the next 72 hours to follow up on your visit today. Return to the emergency department for new or worsening symptoms including chest pain, difficulty breathing, palpitations, or if you have any other concerns. HPI General Mode of arrival: ambulatory. Date/Time Provider Initiated Documentation: 03/29/25 16:43. Limitations to Documentation: no limitations. Information obtained by: patient and old records reviewed. HPI Narrative: 29yo M with hx MEN1, CKD, HTN, hyperparathyroidism, anxiety/panic/PTSD, recent PE on eliquis, presenting for panic attack. Reports that starting several hours ago he began to have a panic attack typical of his usual panic attacks; chest tightness, heart racing, feeling lightheaded. Aside from lasting longer than usual, otherwise typical of his usual panic attacks. Typically takes 1mg PO lorazapam once a day but switched to an mail-order pharmacy through the [place] and has not been able to get his meds for the past 2 weeks, initial delay and now reports he was told they are 'stuck in [place]' due to the government shutdown. A few days ago a close friend unexpectedly in an MVA and this has also been very stressful. He is otherwise in his usual state of health with no fevers, chills, rash, nausea, vomtiing, abdominal pain, shortness of breath, or other concerns. Related Data Home Medications ?Medication ?Instructions ?Recorded ?Confirmed calcium carbonate (Tums) 2,000 mg PO BID 02/02/23 03/29/25 methadone 10 mg/5 mL oral solution 100 mg PO QAM 06/12/23 03/29/25 prochlorperazine maleate 5 mg 5 mg PO TID PRN acute nausea #30 09/06/23 03/29/25 tablet tabs gabapentin 300 mg capsule 300 mg PO BID #180 caps 06/01/24 03/29/25 calcitriol 0.5 mcg capsule 1 mcg (2 x 0.5 mcg) PO .COMPLEX 06/29/24 03/29/25 #270 caps omeprazole 40 mg capsule,delayed 40 mg PO DAILY #90 caps 07/27/24 03/29/25 release polyethylene glycol 3350 17 gram 17 g PO BID PRN 10/15/24 03/29/25 oral powder packet lorazepam 1 mg tablet 1 mg PO DAILY PRN anxiety #10 tabs 10/19/24 03/29/25 cyclobenzaprine 10 mg tablet 10 mg PO TID PRN muscle spasm #30 11/16/24 03/29/25 tabs magnesium gluconate 27 mg 500 mg PO BID 01/30/25 03/29/25 magnesium (500 mg) tablet diclofenac sodium 1 % topical gel 2 g topical QID #50 grams 02/03/25 03/29/25 clonazepam 1 mg tablet 1 mg PO BID #10 tabs 02/08/25 03/29/25 apixaban 5 mg tablet (Eliquis) 5 mg PO BID #60 tabs 03/08/25 03/29/25 famotidine 20 mg tablet 20 mg PO BID #30 tabs 03/15/25 03/29/25 ondansetron 4 mg disintegrating 4 mg PO Q8H PRN #20 tabs 03/15/25 03/29/25 tablet sucralfate 1 gram tablet 1 g PO QACHS #90 tabs 03/15/25 03/29/25 prochlorperazine maleate 10 mg 10 mg PO Q6H PRN #10 tabs 03/16/25 03/29/25 tablet (Compazine) folic acid 1 mg tablet 1 mg PO DAILY #30 tabs 03/17/25 03/29/25 lorazepam 1 mg tablet (Ativan) 1 mg PO DAILY PRN #4 tabs 03/29/25 Previous Rx's ?Medication ?Instructions ?Recorded prochlorperazine maleate 5 mg 5 mg PO TID PRN acute nausea #30 09/06/23 tablet tabs gabapentin 300 mg capsule 300 mg PO BID #180 caps 06/01/24 calcitriol 0.5 mcg capsule 1 mcg (2 x 0.5 mcg) PO .COMPLEX 06/29/24 #270 caps omeprazole 40 mg capsule,delayed 40 mg PO DAILY #90 caps 07/27/24 release lorazepam 1 mg tablet 1 mg PO DAILY PRN anxiety #10 tabs 10/19/24 cyclobenzaprine 10 mg tablet 10 mg PO TID PRN muscle spasm #30 11/16/24 tabs diclofenac sodium 1 % topical gel 2 g topical QID #50 grams 02/03/25 clonazepam 1 mg tablet 1 mg PO BID #10 tabs 02/08/25 apixaban 5 mg tablet (Eliquis) 5 mg PO BID #60 tabs 03/08/25 famotidine 20 mg tablet 20 mg PO BID #30 tabs 03/15/25 ondansetron 4 mg disintegrating 4 mg PO Q8H PRN #20 tabs 03/15/25 tablet sucralfate 1 gram tablet 1 g PO QACHS #90 tabs 03/15/25 prochlorperazine maleate 10 mg 10 mg PO Q6H PRN #10 tabs 03/16/25 tablet (Compazine) folic acid 1 mg tablet 1 mg PO DAILY #30 tabs 03/17/25 lorazepam 1 mg tablet (Ativan) 1 mg PO DAILY PRN #4 tabs 03/29/25 Allergies Allergy/AdvReac Type Severity Reaction Status Date / Time Penicillins Allergy Skin Rash Verified 03/29/25 16:22 marijuana (cannabis) AdvReac Severe Paranoia Verified 03/29/25 16:22 amoxicillin AdvReac Intermediate Nausea Verified 03/29/25 16:22 codeine AdvReac Intermediate pass out Verified 03/29/25 16:22 dextromethorphan (From AdvReac Intermediate got Verified 03/29/25 16:22 NyQuil) really hot and sweaty doxylamine (From NyQuil) AdvReac Intermediate got Verified 03/29/25 16:22 really hot and sweaty pseudoephedrine (From NyQuil) AdvReac Intermediate got Verified 03/29/25 16:22 really hot and sweaty General Stated Complaint: Chest Pain ADRIANA: 3 Review of Systems Narrative: see HPI Exam Narrative Exam Narrative: General: Alert, well appearing, well nourished, in no acute distress. Head: Normocephalic, atraumatic Neck: Trachea midline, ?Neck supple. ENT: ?MMM.? Cardiac: ?RRR, no murmurs appreciated Resp: No respiratory distress. CTAB. Abd: ?Non-distended Extremities: ?No deformities.? No peripheral edema. Neurologic: GCS 15. ? Moves all extremities freely against gravity Course Vital Signs Vital signs: Vital Signs Temperature 37.1 C 03/29/25 16:15 Pulse 98 H 03/29/25 16:15 Respiratory Rate 18 03/29/25 16:15 Blood Pressure 134/74 03/29/25 16:15 Pulse Oximetry 94 03/29/25 16:15 Temperature 37.1 C 03/29/25 16:15 Temperature Source Tympanic 03/29/25 16:15 Pulse 98 H 03/29/25 16:15 Respiratory Rate 18 03/29/25 16:15 Blood Pressure 134/74 03/29/25 16:15 Pulse Oximetry 94 03/29/25 16:15 Oxygen Delivery Method Room Air 03/29/25 16:15 Oxygen Flow Rate 0 03/29/25 16:15 Medical Decision Making 29yo M with hx MEN1, CKD, HTN, hyperparathyroidism, anxiety/panic/PTSD, recent PE on eliquis, presenting for panic attack. Reports that starting several hours ago he began to have a panic attack typical of his usual panic attacks; sudden chest tightness, heart racing, feeling lightheaded. Aside from lasting longer than usual, otherwise typical of his usual panic attacks. Typically takes 1mg PO lorazapam once a day but switched to an mail-order pharmacy through the [place] and has not been able to get his meds for the past 2 weeks. Borderline tachycardiac on arrival to 98, vital signs otherwise reassuring. Well appearing on exam, no respiratory distress, no tachypnea or hypoxia. History is very strongly suggestive of panic attack; given patient's medical comorbidities will evaluate further with EKG and labs. He is compliant with eliquis and on an adequate dose, low suspicion for worsening PE, would not re-CT unless symptoms unresolved by treatment. -EKG SR, appropriate intervals, no ST segment or T wave abnormalities to suggest occlusive MT. -Labs reviewed as below, CBC with anemia Hg 9.3 (chronic/baseline on [facility] record review), CMP with Cr also at baseline and no actionable abnormalities, Mg normal, troponin normal (in the setting of >3 hours of symptoms and low risk heart score; would not further pursue ACS). On reassessment he reports feeling much better, symptoms have resolved. Repeat vital signs reassuring, normal HR. Will discharge with 1 one week of lorzapam to bridge until his mail order meds arrive. Discharged home; discharge instructions and return precautions were reviewed with patient who verbalized understanding. All questions were answered and he is in full agreement with the plan. Lab Data Lab results reviewed: Yes I reviewed the patient's lab results. Labs: Laboratory Tests Range/Units 10/14/25 17:10 WBC (4.4-10.8) 10^3/uL 8.31 RBC (4.36-5.78) 10^6/uL 3.69 L Hgb (13.5-17.5) g/dL 9.3 L Hct (40.0-50.0) % 30.2 L MCV (80-95) fL 82 MCH (27.0-33.0) pg 25.2 L MCHC (32.0-36.0) % 30.8 L RDW (11.8-14.1) % 16.3 H Plt Count (130-400) 10^3/uL 393 MPV (8.0-11.0) fL 9.9 Immature Gran % % 0.2 Neutrophils % % 65.9 Lymphocytes % % 23.8 Monocytes % % 7.7 Eosinophils % % 1.9 Basophils % % 0.5 Nucleated RBC % (0.0-0.3) % 0.0 Absolute Neutrophils (1.2-6.7) 10^3/uL 5.47 Absolute Lymphocytes (1.2-3.4) 10^3/uL 1.98 Absolute Monocytes (0.1-0.8) 10^3/uL 0.64 Absolute Eosinophils (0.0-0.7) 10^3/uL 0.16 Absolute Basophils (0.0-0.2) 10^3/uL 0.04 Sodium (136-145) mmol/L 140 Potassium (3.5-5.1) mmol/L 4.0 Chloride (98-107) mmol/L 99 Carbon Dioxide (21.0-32.0) mmol/L 32.7 H Anion Gap (3-11) mmol/L 8.3 BUN (7-18) mg/dL 10 Creatinine (0.70-1.30) mg/dL 1.6 H Est GFR (CKD-EPI 2020) (mL/min/1.73m2) 58.71 Glucose (74-106) mg/dL 87 Calcium (8.5-10.1) mg/dL 8.7 Magnesium (1.8-2.4) mg/dL 1.9 Total Bilirubin (0.2-1.0) mg/dL 0.2 AST (15-37) U/L 27 ALT (16-63) U/L 39 Alkaline Phosphatase (46-116) U/L 135 H Troponin I (<or=76) ng/L 6 Total Protein (6.4-8.2) g/dL 8.0 Albumin (3.4-5.0) g/dL 3.4 Quality:SDOH Health Related Social Needs: Health related social needs lonely/isolated Health related social needs details patient here frequently due to anxiety. PFSH All Active Problems (Updated 03/29/25 @ 18:42 by Kimberli Martinez MD) Panic attack (Acute) Abdominal pain (Acute) Normocytic anemia (Acute) Coughing up blood (Acute) Renal cyst (Acute) Back pain (Acute) Heart palpitations (Acute) Headache (Acute) Hyperhomocysteinemia (Acute) Abdominal pain, epigastric (Acute) Chest pain, unspecified (Acute) Abdominal pain (Acute) Left-sided chest pain (Acute) Pulmonary infiltrates (Acute) Snoring (Acute) Pleural effusion (Acute) Arm pain, left (Acute) Chest pain (Acute) Rt groin pain (Acute) Bloody sputum (Acute) Left ankle sprain (Acute) Rash (Acute) Shortness of breath (Acute) Edema, peripheral (Acute) Anxiety (Chronic) Chest discomfort (Acute) Pulmonary embolism and infarction (Acute) Left pulmonary infiltrate on CXR (Acute) Bilateral pulmonary embolism (Acute) Tenderness of neck (Acute) Right elbow pain (Acute) Acute leg pain (Acute) Bronchitis (Acute) Well adult health check (Acute) Obstructive sleep apnea (Chronic) Metabolic dysfunction-associated fatty liver disease (MAFLD) (Acute) Fatty liver (Acute) IBS (irritable bowel syndrome) (Chronic) Obesity (Chronic) Migraine with aura (Acute) Testicle lump (Acute) Pes anserine bursitis (Acute) Left-sided Flower's palsy (Acute) Opiate dependence, continuous (Acute) 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 Possible 2' Methadone, Clnzpm (?). Surg eval (+)/No further action. History of electrolyte imbalance (Acute) Neck pain on left side (Acute) with shoulder, upper back pain.. torticollis, radiating into left hip/leg Pulmonary nodule 1 cm or greater in diameter (Chronic) Therapeutic opioid induced constipation (Acute) Sphincter of Oddi dysfunction (Chronic) Abnormal CT scan, kidney (Acute) Intrahepatic bile duct dilation (Acute) Common bile duct dilatation (Chronic) Has been dilated for quite some time, now more-so. Normal LFTs. Known gallstones. Depression (Chronic) Elevated parathyroid hormone (Acute) Family history of coronary arteriosclerosis (Chronic) Father of MT at 50, mother had MT at 42 Severe anxiety with panic (Chronic) Medical History Multiple endocrine neoplasia type I CKD (chronic kidney disease) stage 2, GFR 60-89 ml/min GFR 64-65, with Hx FLORESITA and GFR < 45 Primary hyperparathyroidism Complex medical condition Serious electrolyte imbalances, with gynecomastia, possible MEN Dx, CKD and anemia with baseline anxiety and Hx PTSD. Hypocalcemia Anxiety Depression Hyperlipidemia Family history of multiple endocrine neoplasia, type 1 PTSD (post-traumatic stress disorder) Per pt. states no triggers at this time. Surgical History History of laparoscopic cholecystectomy (~11/2023) H/O parathyroidectomy Family History Mother Anxiety Asthma Depression Sister Anxiety Depression Father Cancer lung & stomach Depression Diabetes Hypertension MEN 1 (multiple endocrine neoplasia) Social History Smoking/Tobacco Use Status: Never Smoking risk assessment performed?: Yes Alcohol Intake: never Drug use: Current Sobriety Substance use type: former substance user, crack/cocaine, heroin and painkillers Details: stopped using substances for the past 4 years Adopted: No Caregiver/Support person: No Foster care: No Household members: none Housing: apartment Number of Children: 0 Communication Needs: None Education Level: high school Do you need help understanding health information?: Never current occupation: [employer] Pets and animals: Yes (Ally) Pets and animals: dog(s) Sexually active: No Do you think of yourself as: straight/heterosexual Current gender identity: male What is your relationship status?: How often do you talk on the phone with friends or family?: twice per week How often do you get together with friends or relatives?: never Do you belong to any clubs or organized social groups?: no Panel score (0-1 are the most socially isolated patients): 0 What type of physical activity do you participate in: walking Duration: 15-30 minutes/day Frequency: 5-6 times per week Maryam/Evangelical: Jewish Special maryam needs: No Seatbelt use: always Helmet use: Yes Helmet use: always Drive intox or ride w/intox driver helper: No Do you feel safe at home: Yes Do you feel safe in your relationship?: Yes
[2025-03-29] MEDS: LORazepam 1 MG TAB PO ×2 (17:06→19:09)
[2025-03-29 17:16] VITALS: RESP 16
[2025-03-29 17:19] LABS: Abs Immature Grans 0.02 10^3/uL (0.0-0.06); HCT 30.2 % (40.0-50.0); HGB 9.3 g/dL (13.5-17.5); Immature Grans % 0.2 %; MCH 25.2 pg (27.0-33.0); MCHC 30.8 % (32.0-36.0); MCV 82 fL (80-95); MPV 9.9 fL (8.0-11.0); Platelet Count 393 10^3/uL (130-400); RBC 3.69 10^6/uL (4.36-5.78); RDW 16.3 % (11.8-14.1); RDW-SD 49.2 fL; WBC 8.31 10^3/uL (4.4-10.8)
[2025-03-29 17:20] VITALS: RESP 16
[2025-03-29 17:37] LABS: ALT 39 U/L (16-63); AST 27 U/L (15-37); Albumin 3.4 g/dL (3.4-5.0); Alkaline Phosphatase 135 U/L (46-116); Anion Gap 8.3 mmol/L (3-11); BUN 10 mg/dL (7-18); Bilirubin, Total 0.2 mg/dL (0.2-1.0); CO2 32.7 mmol/L (21.0-32.0); Calcium 8.7 mg/dL (8.5-10.1); Chloride 99 mmol/L (98-107); Estimated GFR 58.71 (mL/min/1.73m2); Glucose 87 mg/dL (74-106); Magnesium 1.9 mg/dL (1.8-2.4); Potassium 4.0 mmol/L (3.5-5.1); Sodium 140 mmol/L (136-145); Total Protein 8.0 g/dL (6.4-8.2); Troponin I 6 ng/L (<or=76)
[2025-03-29 18:32] VITALS: BP 143/99; PULSE 89; O2SAT 99
[2025-03-29 19:10] VITALS: BP 143/99; PULSE 89; RESP 16; O2SAT 99
== END 2025-03-29 19:13 | disposition home or self-care (01) ==
PROVIDERS: Emergency Provider Student in an Organized Health Care Education/Training Program; PCP Physician Assistant
DX: F41.0 Panic disorder [episodic paroxysmal anxiety] (principal)
CPT/HCPCS: 99284 ×2; 36415; 80053; 93005; 83735; 84484; 85025; 93010

== ENCOUNTER 2025-03-30 00:58 | Outpatient (CLI) | payer MEDICAID, SELFPAY ==
--- NOTE | 2025-03-30 10:06 | TELEFU_ITS ---
Date of service: 03/30/25 Time of Service: 09:00 Nutrition Note NOTE: Pedro Pablo in for nutrition referral for hyperhomocysteinemia. Hx of obesity with BMI over 40. States he has a history of genetic disorder of parathyroid and takes calcium and magnesium supp at home along with folic acid for deficiency via lab result on 03/17/25. Reviewed CVD risk for high homocystein and would be good to take an approach of lowing weight and also ditching some animal protein sources as this is highest i n methionine and needs to limit his intake both to reduce methionine intake as well as to lower SFA intake and general pro-inflammatory effects of high animal protein diet. Low fiber intake assessed on many days and also suggested working with plant protein to help offset animal protein intake but also to help increase fiber. REviewed printout of methionine in food groups and again pointed to sig lower amounts in plant foods, especially whole f/v. We looked at how he can use AI for help in sample menu planning and suggested limiting methionine to about 15mg per kg or just trying to track his average intake now and then work at reducing as overall goal. Generally recommended under 1500mg methionine per day. I suggested he take vitamin D3 at ~2000IU per day, I also suggested taking a methylated form of folate as it is more usable and suggested he may look into testing for mutation of MTHFR gene (folic acid not converted well to methyl form wit this mutation). Pedro Pablo has my contact info and told to reach out with any need for follow, if he has quick questions. Time Spent in Nutritional Counseling and Treatment: 25 min
== END 2025-03-30 00:59 | disposition home or self-care (01) ==
LOC: DS 00:58
PROVIDERS: PCP Physician Assistant; Visit Provider Dietitian, Registered
DX: R79.83 Abnormal findings of blood amino-acid level (principal)
CPT/HCPCS: 00123; 97802

== ENCOUNTER 2025-04-03 13:20 | Emergency (ER) | payer OTHER, SELFPAY ==
[2025-04-03] VITALS (19 sets, daily range): BP systolic 113–127; BP diastolic 68–82; PULSE 75–122; RESP 20; TEMP 36.8; O2SAT 96
--- NOTE | 2025-04-03 13:15 | RT.EKG_ITS ---
APPROVED REPORT Exam: Resting ECG Reason for Exam: Left Sided Numbness Patient Location: E HR:127 bpm ECG Measurements Heart Rate 127 AXIS NC 142 P 35 QRSd 98 QRS 40 QT 322 T 17 QTc 469 Conclusion Sinus tachycardia, rate 127 No interval abnormalities No STEMI No significant changes from priors other than rate increase
--- NOTE | 2025-04-03 14:15 | W.ED.GENAD ---
Discharge Plan Disposition Patient Disposition: Home Condition: Stable Discharge Details Clinical Impression: Panic attack, Anxiety, Heart palpitations Primary Care Provider: Sanjana Pritchett ED Provider: Tere Adams Home Meds and New Rx's Prescriptions: Continued clonazepam 1 mg tablet 1 mg PO BID Qty: 10 0RF No Action gabapentin 300 mg capsule 300 mg PO BID Qty: 180 3RF omeprazole 40 mg capsule,delayed release(DR/EC) 40 mg PO DAILY Qty: 90 3RF lorazepam 1 mg tablet 1 mg PO DAILY PRN (Reason: anxiety) Qty: 10 0RF Rx Instructions: Use when considering ER visit cyclobenzaprine 10 mg tablet 10 mg PO TID PRN (Reason: muscle spasm) Qty: 30 3RF Eliquis 5 mg tablet 5 mg PO BID Qty: 60 6RF methadone 10 mg/5 mL solution 100 mg PO QAM calcitriol 0.5 mcg capsule 1 mcg PO .COMPLEX Qty: 270 3RF Rx Instructions: 1 mcg orally t2 tabs qam and 1 tab QHS; folic acid 1 mg tablet 1 mg PO DAILY Qty: 30 6RF calcium carbonate [Tums] 200 mg calcium (500 mg) tablet,chewable 2,000 mg PO BID prochlorperazine maleate 5 mg tablet 5 mg PO TID PRN (Reason: acute nausea) Qty: 30 0RF polyethylene glycol 3350 17 gram powder in packet 17 g PO BID PRN magnesium gluconate 27 mg magnesium (500 mg) tablet 500 mg PO BID Rx Instructions: takes 500mg QAM and 1000mg QHS diclofenac sodium 1 % gel 2 g topical QID Qty: 50 0RF Rx Instructions: apply to single elbow, wrist or hand; for hand includes palm/fingers/back of hand famotidine 20 mg tablet 20 mg PO BID Qty: 30 0RF sucralfate 1 gram tablet 1 g PO QACHS Qty: 90 0RF ondansetron 4 mg tablet,disintegrating 4 mg PO Q8H PRNQty: 20 0RF prochlorperazine maleate [Compazine] 10 mg tablet 10 mg PO Q6H PRNQty: 10 0RF lorazepam [Ativan] 1 mg tablet 1 mg PO DAILY PRNQty: 4 0RF Discharge Instructions Instructions: Panic Disorder (DC) Additional Instructions: You were seen in the emergency department today for symptoms of heart racing, numbness and tingling, and excessive anxiety and panic. In our department he had a full physical examination performed which was quite reassuring. Given the increase in your symptoms I feel that it would benefit you to meet with one of the social workers and discussed options for your mental health. You met with [facility] for resources and I recommend that you follow-up with any evaluations or recommendations made by that team. Additionally, I have provided you with a short refill of your medications given the difficulties in obtaining your prescriptions through your mail-order pharmacy. Please contact your provider tomorrow to discuss any additional refills. Please follow-up with your primary care provider in the next few days to discuss this visit and any symptoms that change, worsen, or persist. Thank you for allowing us to be part of your care. HPI General Mode of arrival: ambulatory. Date/Time Provider Initiated Documentation: 04/03/25 13:41. Limitations to Documentation: no limitations. Information obtained by: patient and old records reviewed. HPI Narrative: This is a 29-year-old male patient with a past medical history significant for M EN, pulmonary embolism on Eliquis, IBS, and a history of anxiety and PTSD, presenting for evaluation of worsening anxiety and panic attacks with body numbness. The patient reports that he has had a significant amount of increasing stress in his life. He had multiple medical diagnoses this year including his PE, which is caused great amount of medical anxiety. He had a friend who unexpectedly in a car crash approximately 1 week ago, and states that he has been having panic attacks with increasing frequency. He manages his symptoms at home with clonazepam, twice a day, and supplemental Ativan as needed for panic. He reports that he has been unable to get his medications due to the government shutdown, as he uses a mail service through the [place]. This has increases stress as he knows that he will have to go without some of his medications, such as his clonazepam, when he runs out. The patient reports that he began to feel symptoms of anxiety including heart racing, which is quite typical for him. He reports that he has had some intermittent weakness and numbness, that seems to be in his left-sided arm and leg, does sometimes move more to the right and waxes and wanes. He reports that he feels powerless. He denies recent head strike or trauma. He was recently seen at the eye doctors for left eye twitching, and was told that he needed glasses which was a new stressor as they were quite expensive. He states that his anxiety is worse on the weekends when he does not have so much to do to occupy his time. It seems to get worse when he focuses on the sound of his heartbeat, or when he starts to have abdominal distress. Right now the patient reports that he is still having some tingly sensations intermittently in his bilateral feet, still has some palpitations but they have improved somewhat. He reports that he is not experiencing any suicidal or homicidal ideation. He was recently prescribed propranolol for his anxiety, has not tried this medication yet. Related Data Home Medications ?Medication ?Instructions ?Recorded ?Confirmed calcium carbonate (Tums) 2,000 mg PO BID 02/02/23 04/03/25 methadone 10 mg/5 mL oral solution 100 mg PO QAM 06/12/23 04/03/25 prochlorperazine maleate 5 mg 5 mg PO TID PRN acute nausea #30 09/06/23 04/03/25 tablet tabs gabapentin 300 mg capsule 300 mg PO BID #180 caps 06/01/24 04/03/25 calcitriol 0.5 mcg capsule 1 mcg (2 x 0.5 mcg) PO .COMPLEX 06/29/24 04/03/25 #270 caps omeprazole 40 mg capsule,delayed 40 mg PO DAILY #90 caps 07/27/24 04/03/25 release polyethylene glycol 3350 17 gram 17 g PO BID PRN 10/15/24 04/03/25 oral powder packet lorazepam 1 mg tablet 1 mg PO DAILY PRN anxiety #10 tabs 10/19/24 04/03/25 cyclobenzaprine 10 mg tablet 10 mg PO TID PRN muscle spasm #30 11/16/24 04/03/25 tabs magnesium gluconate 27 mg 500 mg PO BID 01/30/25 04/03/25 magnesium (500 mg) tablet diclofenac sodium 1 % topical gel 2 g topical QID #50 grams 02/03/25 04/03/25 apixaban 5 mg tablet (Eliquis) 5 mg PO BID #60 tabs 03/08/25 04/03/25 famotidine 20 mg tablet 20 mg PO BID #30 tabs 03/15/25 04/03/25 ondansetron 4 mg disintegrating 4 mg PO Q8H PRN #20 tabs 03/15/25 04/03/25 tablet sucralfate 1 gram tablet 1 g PO QACHS #90 tabs 03/15/25 04/03/25 prochlorperazine maleate 10 mg 10 mg PO Q6H PRN #10 tabs 03/16/25 04/03/25 tablet (Compazine) folic acid 1 mg tablet 1 mg PO DAILY #30 tabs 03/17/25 04/03/25 lorazepam 1 mg tablet (Ativan) 1 mg PO DAILY PRN #4 tabs 03/29/25 04/03/25 clonazepam 1 mg tablet 1 mg PO BID #10 tabs 04/03/25 Previous Rx's ?Medication ?Instructions ?Recorded prochlorperazine maleate 5 mg 5 mg PO TID PRN acute nausea #30 09/06/23 tablet tabs gabapentin 300 mg capsule 300 mg PO BID #180 caps 06/01/24 calcitriol 0.5 mcg capsule 1 mcg (2 x 0.5 mcg) PO .COMPLEX 06/29/24 #270 caps omeprazole 40 mg capsule,delayed 40 mg PO DAILY #90 caps 07/27/24 release lorazepam 1 mg tablet 1 mg PO DAILY PRN anxiety #10 tabs 10/19/24 cyclobenzaprine 10 mg tablet 10 mg PO TID PRN muscle spasm #30 11/16/24 tabs diclofenac sodium 1 % topical gel 2 g topical QID #50 grams 02/03/25 apixaban 5 mg tablet (Eliquis) 5 mg PO BID #60 tabs 03/08/25 famotidine 20 mg tablet 20 mg PO BID #30 tabs 03/15/25 ondansetron 4 mg disintegrating 4 mg PO Q8H PRN #20 tabs 03/15/25 tablet sucralfate 1 gram tablet 1 g PO QACHS #90 tabs 03/15/25 prochlorperazine maleate 10 mg 10 mg PO Q6H PRN #10 tabs 03/16/25 tablet (Compazine) folic acid 1 mg tablet 1 mg PO DAILY #30 tabs 03/17/25 lorazepam 1 mg tablet (Ativan) 1 mg PO DAILY PRN #4 tabs 03/29/25 clonazepam 1 mg tablet 1 mg PO BID #10 tabs 04/03/25 Allergies Allergy/AdvReac Type Severity Reaction Status Date / Time Penicillins Allergy Skin Rash Verified 04/03/25 13:28 marijuana (cannabis) AdvReac Severe Paranoia Verified 04/03/25 13:28 amoxicillin AdvReac Intermediate Nausea Verified 04/03/25 13:28 codeine AdvReac Intermediate pass out Verified 04/03/25 13:28 dextromethorphan (From AdvReac Intermediate got Verified 04/03/25 13:28 NyQuil) really hot and sweaty doxylamine (From NyQuil) AdvReac Intermediate got Verified 04/03/25 13:28 really hot and sweaty pseudoephedrine (From NyQuil) AdvReac Intermediate got Verified 04/03/25 13:28 really hot and sweaty General Stated Complaint: Arrhythmia ADRIANA: 3 Exam Narrative Exam Narrative: Gen: awake and alert, in no apparent distress. Appears well nourished. HEENT: PERRL, EOMs full and without nystagmus. External ears and nose normal, mucous membranes moist. Neck: Supple, full range of motion, no observable masses Lungs: No increased work of breathing, lung sounds clear and equal bilaterally without wheezes, rhonchi, or rales. CV: Heart with regular rate and rhythm, no murmurs auscultated. Strong and symmetrical radial pulses. Abdomen: Soft, nondistended, non-tender to palpation. No rigidity, rebound tenderness, or guarding. MSK: No joint swelling, no redness. Full ROM without limitation, no external traumatic findings. Skin: No rashes or lesions to visualized skin. Normal color, warm, and dry. Neuro: Cranial nerves II-XII intact and symmetrical bilaterally. 5/5 strength in all muscle groups x4 extremities. No sensory deficits. No pronator drift, ambulates with steady gait. Psych: Appropriate for situation. Course Vital Signs Vital signs: Vital Signs Temperature 36.8 C 04/03/25 13:23 Pulse 122 H 04/03/25 13:23 Respiratory Rate 20 04/03/25 13:23 Blood Pressure 127/82 04/03/25 13:23 Pulse Oximetry 96 04/03/25 13:23 Temperature 36.8 C 04/03/25 13:23 Pulse 122 H 04/03/25 13:23 Respiratory Rate 20 04/03/25 13:23 Blood Pressure 127/82 04/03/25 13:23 Pulse Oximetry 96 04/03/25 13:23 Pain Level 5 04/03/25 13:23 Medical Decision Making This is a 29-year-old male patient presenting for evaluation of intermittent and diffuse numbness and tingling in the setting of panic attack and palpitations. My differential includes but is not limited to primary psychiatric disturbance including panic attack, anxiety, certainly considered medication withdrawal effect, though the patient has taken his clonazepam and Ativan today. He has not had any head trauma and does not have any focal neurodeficits at this time to suggest intracranial hemorrhage. My concern for CVA is quite low and this neuro intact patient for whom the tingling and weeks symptoms do not localize in a typical distribution of the brain. The patient had recent lab work performed, and has been taking all the supplements and maintaining his oral intake, and I have a low concern for dehydration, metabolic electrolyte derangement, kidney injury. No chest pain to suggest ACS, the patient was initially tachycardic, I obtained and reviewed an EKG which shows a sinus tachycardia with no evidence of ischemia, interval abnormality, or ectopy. It is unchanged when compared to priors. I had an extended conversation with this patient, and at this time I do not see an indication to move forward with advanced imaging of the brain nor repeat laboratory studies. However, the patient's increasing frequency and panic attacks are causing him a significant amount of stress, and I feel he would benefit from psychiatric discussion with our social work team. He is amenable to discussing possible resources, medication management, etc. [facility] was contacted to meet with this patient. -The patient was given a large number of resources by the social work team, and feels quite reassured and empowered. He does not meet criteria for inpatient level of care at this time. I did provide him with a short prescription of clonazepam to bridge him while awaiting a refill from his outpatient providers, as the risk of benzodiazepine withdrawal is quite significant in this patient who is taking them long-term. At this time, the patient has had a full medical evaluation and is safe for discharge to home. They are hemodynamically stable, ambulatory, and tolerating PO. They are understanding of the follow-up plan and return precautions. They left our facility without incident. Tere Adams MD Quality:SDOH Health Related Social Needs: Health related social needs lonely/isolated Health related social needs details patient here frequently due to anxiety. PFSH All Active Problems (Updated 04/03/25 @ 15:51 by Tere Adams MD) Panic attack (Acute) Abdominal pain (Acute) Normocytic anemia (Acute) Coughing up blood (Acute) Renal cyst (Acute) Back pain (Acute) Heart palpitations (Acute) Headache (Acute) Hyperhomocysteinemia (Acute) Abdominal pain, epigastric (Acute) Chest pain, unspecified (Acute) Abdominal pain (Acute) Left-sided chest pain (Acute) Pulmonary infiltrates (Acute) Snoring (Acute) Pleural effusion (Acute) Arm pain, left (Acute) Chest pain (Acute) Rt groin pain (Acute) Bloody sputum (Acute) Rash (Acute) Shortness of breath (Acute) Edema, peripheral (Acute) Anxiety (Chronic) Chest discomfort (Acute) Pulmonary embolism and infarction (Acute) Left pulmonary infiltrate on CXR (Acute) Bilateral pulmonary embolism (Acute) Tenderness of neck (Acute) Right elbow pain (Acute) Acute leg pain (Acute) Bronchitis (Acute) Well adult health check (Acute) Obstructive sleep apnea (Chronic) Metabolic dysfunction-associated fatty liver disease (MAFLD) (Acute) Fatty liver (Acute) IBS (irritable bowel syndrome) (Chronic) Obesity (Chronic) Migraine with aura (Acute) Testicle lump (Acute) Pes anserine bursitis (Acute) Left-sided Flower's palsy (Acute) Opiate dependence, continuous (Acute) 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 Possible 2' Methadone, Clnzpm (?). Surg eval (+)/No further action. History of electrolyte imbalance (Acute) Neck pain on left side (Acute) with shoulder, upper back pain.. torticollis, radiating into left hip/leg Pulmonary nodule 1 cm or greater in diameter (Chronic) Therapeutic opioid induced constipation (Acute) Sphincter of Oddi dysfunction (Chronic) Abnormal CT scan, kidney (Acute) Intrahepatic bile duct dilation (Acute) Common bile duct dilatation (Chronic) Has been dilated for quite some time, now more-so. Normal LFTs. Known gallstones. Depression (Chronic) Elevated parathyroid hormone (Acute) Family history of coronary arteriosclerosis (Chronic) Father of UT at 50, mother had UT at 42 Severe anxiety with panic (Chronic) Medical History Multiple endocrine neoplasia type I CKD (chronic kidney disease) stage 2, GFR 60-89 ml/min GFR 64-65, with Hx FLORESITA and GFR < 45 Primary hyperparathyroidism Complex medical condition Serious electrolyte imbalances, with gynecomastia, possible MEN Dx, CKD and anemia with baseline anxiety and Hx PTSD. Hypocalcemia Anxiety Depression Hyperlipidemia Family history of multiple endocrine neoplasia, type 1 PTSD (post-traumatic stress disorder) Per pt. states no triggers at this time. Surgical History History of laparoscopic cholecystectomy (~11/2023) H/O parathyroidectomy Family History Mother Anxiety Asthma Depression Sister Anxiety Depression Father Cancer lung & stomach Depression Diabetes Hypertension MEN 1 (multiple endocrine neoplasia) Social History Smoking/Tobacco Use Status: Never Smoking risk assessment performed?: Yes Alcohol Intake: never Drug use: Current Sobriety Substance use type: former substance user, crack/cocaine, heroin and painkillers Details: stopped using substances for the past 4 years Adopted: No Caregiver/Support person: No Foster care: No Household members: none Housing: apartment Number of Children: 0 Communication Needs: None Education Level: high school Do you need help understanding health information?: Never current occupation: [employer] Pets and animals: Yes (Ally) Pets and animals: dog(s) Sexually active: No Do you think of yourself as: straight/heterosexual Current gender identity: male What is your relationship status?: How often do you talk on the phone with friends or family?: twice per week How often do you get together with friends or relatives?: never Do you belong to any clubs or organized social groups?: no Panel score (0-1 are the most socially isolated patients): 0 What type of physical activity do you participate in: walking Duration: 15-30 minutes/day Frequency: 5-6 times per week Maryam/Latter-Day: Roman Catholic Special maryam needs: No Seatbelt use: always Helmet use: Yes Helmet use: always Drive intox or ride w/intox farm truck driver: No Do you feel safe at home: Yes Do you feel safe in your relationship?: Yes
--- NOTE | 2025-04-03 20:03 | PDOC.MHCN ---
Date of service: 04/03/25 Time of Service: 15:45 Suicide Severity Rate CSSRS Have you wished you were or wished you could go to sleep and not wake up?: Yes Have you actually had any thoughts of killing yourself?: No CSSRS2 Have you been thinking about how you might do this?: No Have you had these thoughts and had some intention of acting on them?: No Have you started to work out or worked out the details of how to kill yourself? Do you intend to carry out this plan?: No CSSRS3 Have you ever done anything, started to do anything or prepared to do anything to end your life?: Yes CSSRS4 Was this within the past three months?: No Screening Score Total Score: 4 Screening: Positive Mental Health Emergency Note Release [facility] release signed:: Yes Reason for Visit Anxiety, Depression, PTSD In the last 2 weeks has the pt presented for ES prior to today?: Yes, presented at [facility] ED Client Information Client is: New Well Housed: Yes Non Suicidal Self Injury Current: No History: No Safety Risk/Harm to Self or Others Current Ideation to Harm Self or Others: No Risk: Does risk to harm exist?: No Risk: N/A Duty to warn indicated: No Asssessment/Mental Status Appearance: Unremarkable Attitude: Cooperative and Friendly Behavior: Repetitive movements and Other Speech: Normal Affect: Cogruent with mood Mood: Depressed and Anxious Thought process: Circumstational Hallucinations: No evidence Delusions: No evidence Attention: Unremarkable Perception: Not impaired Orientation: Fully orientated Memory: Intact Insight: Excellent Judgement: Excellent Neurovegetative Symptoms Sleep: Decrease Appetitie: Decrease Interests: Decrease Energy: Decrease Libido: No change Additional Issues: Assaultive/Threatening Behavior: No Medical Concerns: Yes Client engaged in active self harm w/weapon: No Threatening to run away: No Child reported abuse/neglect: No Voluntarily presenting for services: Yes Domestic violence is a concern: No Extreme Psychosis or extreme behavior is present: No Resources Reosurces reviewed and given:: 988, Crisis Bed, Community therapist and [facility] Plan/Disposition Recommended Disposition: [facility] Services, Therapy and Med management. Plan: Discharge home, access community supports and continue to utilize skills. Will be referred to outpatient therapy, medication management, case management at [facility]. Person reported agreement to plan: Yes Reports/communication Outcome discussed with: ED/Personnel
== END 2025-04-03 17:54 | disposition home or self-care (01) ==
PROVIDERS: Emergency Provider Emergency Medicine; PCP Physician Assistant
DX: R00.2 Palpitations; Z79.01 Long term (current) use of anticoagulants; Z60.8 Other problems related to social environment; F41.0 Panic disorder [episodic paroxysmal anxiety]
CPT/HCPCS: 99284 ×2; 93005; 93010

== ENCOUNTER 2025-04-04 07:07 | Emergency (ER) | payer OTHER, SELFPAY ==
[2025-04-04] VITALS (29 sets, daily range): BP systolic 96–128; BP diastolic 51–80; PULSE 71–114; RESP 12–36; TEMP 36.8; O2SAT 85–98
--- NOTE | 2025-04-04 07:00 | DI.RAD_ITS ---
Exam(s) XR PORTABLE CHEST AP EXAM: XR PORTABLE CHEST AP CLINICAL HISTORY: chest pain TECHNIQUE: 2D digital imaging was performed of the chest. One image was obtained. An AP view was obtained. COMPARISON: CR,XR XR PORTABLE CHEST AP from 03/26/2023 CR,XR XR CHEST 2V PA LATERAL from 11/29/2023 CR XR CHEST 2V PA LATERAL from 02/03/2025 CR XR CHEST 2V PA LATERAL from 03/07/2025 FINDINGS: MEDIASTINUM: Normal. HEART: Normal. PULMONARY VASCULATURE: Normal. LUNGS: Clear. PLEURAL SPACE: No pleural effusion or pneumothorax. BONE:Within normal limits for the patient's age. OTHER FINDINGS:Normal. IMPRESSION: 1. No acute pulmonary findings. 2. The preliminary [facility] report was reviewed. DATA REPOSITORY: RADIATION DOSE DELIVERED:
--- NOTE | 2025-04-04 07:00 | RT.EKG_ITS ---
APPROVED REPORT Exam: Resting ECG Reason for Exam: chest pain Patient Location: E HR:98 bpm ECG Measurements Heart Rate 98 AXIS HI 166 P 99 QRSd 96 QRS 21 QT 365 T 45 QTc 467 Conclusion Sinus rhythm...normal P axis, V-rate 60- 99 No STEMI
--- NOTE | 2025-04-04 07:21 | W.ED.GENAD ---
Discharge Plan Disposition Patient Disposition: Home Discharge Details Clinical Impression: Atypical chest pain Primary Care Provider: Sanjana Pritchett ED Provider: Jamir Matson Home Meds and New Rx's Prescriptions: No Action gabapentin 300 mg capsule 300 mg PO BID Qty: 180 3RF omeprazole 40 mg capsule,delayed release(DR/EC) 40 mg PO DAILY Qty: 90 3RF lorazepam 1 mg tablet 1 mg PO DAILY PRN (Reason: anxiety) Qty: 10 0RF Rx Instructions: Use when considering ER visit cyclobenzaprine 10 mg tablet 10 mg PO TID PRN (Reason: muscle spasm) Qty: 30 3RF Eliquis 5 mg tablet 5 mg PO BID Qty: 60 6RF methadone 10 mg/5 mL solution 100 mg PO QAM calcitriol 0.5 mcg capsule 1 mcg PO .COMPLEX Qty: 270 3RF Rx Instructions: 1 mcg orally t2 tabs qam and 1 tab QHS; folic acid 1 mg tablet 1 mg PO DAILY Qty: 30 6RF calcium carbonate [Tums] 200 mg calcium (500 mg) tablet,chewable 2,000 mg PO BID prochlorperazine maleate 5 mg tablet 5 mg PO TID PRN (Reason: acute nausea) Qty: 30 0RF polyethylene glycol 3350 17 gram powder in packet 17 g PO BID PRN magnesium gluconate 27 mg magnesium (500 mg) tablet 500 mg PO BID Rx Instructions: takes 500mg QAM and 1000mg QHS diclofenac sodium 1 % gel 2 g topical QID Qty: 50 0RF Rx Instructions: apply to single elbow, wrist or hand; for hand includes palm/fingers/back of hand famotidine 20 mg tablet 20 mg PO BID Qty: 30 0RF sucralfate 1 gram tablet 1 g PO QACHS Qty: 90 0RF ondansetron 4 mg tablet,disintegrating 4 mg PO Q8H PRNQty: 20 0RF clonazepam 1 mg tablet 1 mg PO BID Qty: 10 0RF prochlorperazine maleate [Compazine] 10 mg tablet 10 mg PO Q6H PRNQty: 10 0RF lorazepam [Ativan] 1 mg tablet 1 mg PO DAILY PRNQty: 4 0RF Discharge Instructions Instructions: Chest Pain, Adult ED Additional Instructions: Please follow-up with your primary care provider regarding your visit to the emergency department today. Be sure to discuss results of all test performed here today to include radiology, and laboratory testing as well as results for any pending cultures. Should your symptoms worsen, or if you develop new concerning symptoms, please return immediately emergency department for further evaluation. HPI General Date/Time Provider Initiated Documentation: 04/04/25 07:08. HPI Narrative: MDM/Narrative: 29-year-old female with past med history of anxiety, panic disorder, PE currently on Eliquis, presents for evaluation of chest pain. Chest pain is atypical, EKG is nonischemic, troponins normal x 2. Low suspicion for ACS for this patient. Although initial pulse ox saturation was 90% on room air, while speaking with the patient pulse oximetry is reading 98% I am leave this may be more likely to reflect hypoventilation rather than any acute life-threatening pathology as patient's VBG also shows adequate oxygenation. Remainder of lab workup is negative including lactic acid, magnesium, CBC and CMP. Plan of care discussed with patient he was offered trigger point injections for his chronic left upper shoulder pain which I suspect is a driving factor in the patient's presentation today of chest pain however he declined as he has a severe fear of needles. He is agreeable to plan for discharge follow-up primary care. Clinical impression: Atypical chest pain Disposition: Home HPI: 29-year-old male with panic disorder, anxiety, PE currently on Eliquis, presents for evaluation of acute on chronic chest pain. Patient states that he has had intermittent chest pain for quite some time, yesterday after evaluation in the emergency department he states that his chronic chest tightness became more of a chest pain he denies any exacerbating or remitting factors. Also was concerned because his at home pulse ox monitor showed slightly decreased oxygen saturation and he was worried this is signs of worsening burden of his known PE prompting evaluation. Currently denies any chest pain, nausea, vomiting, diaphoresis, shortness of breath, dyspnea, leg swelling or any other new or concerning symptoms. Does note with certain movements the chest pain is worse particularly motions of the left shoulder. ROS: Negative besides as mentioned above Exam: Gen: A&O NAD HEENT: NCAT, EOMI, not icteric. External ears normal. No rhinorrhea. Moist mucous membranes. Neck: Supple, full range of motion, no observable masses, No meningeal sign. Lungs: No Respiratory distress. CV: RRR, no edema. Abdomen: Soft, nondistended, No rebound tenderness. MSK: No joint swelling, no redness. Tenderness to palpation of the middle and lower trapezius on the left side with some spasm. Skin: No rashes, petechiae, lesions. Normal color per patient. Neuro: Normal Gait, Grossly intact. Psych: Appropriate for situation. Rhythm: NSR Rate: 98 [place]: Normal axis Intervals: Normal intervals Other findings: No acute ST segment or T wave changes to suggest acute ischemia. Labs: Laboratory Tests Range/Units 04/04/25 04/04/25 07:25 08:20 WBC (4.4-10.8) 10^3/uL 6.42 RBC (4.36-5.78) 10^6/uL 3.71 L Hgb (13.5-17.5) g/dL 9.1 L Hct (40.0-50.0) % 30.0 L MCV (80-95) fL 81 MCH (27.0-33.0) pg 24.5 L MCHC (32.0-36.0) % 30.3 L RDW (11.8-14.1) % 16.6 H Plt Count (130-400) 10^3/uL 404 H MPV (8.0-11.0) fL 9.2 Immature Gran % % 0.5 Neutrophils % % 61.8 Lymphocytes % % 26.5 Monocytes % % 8.6 Eosinophils % % 2.0 Basophils % % 0.6 Nucleated RBC % (0.0-0.3) % 0.0 Absolute Neutrophils (1.2-6.7) 10^3/uL 3.97 Absolute Lymphocytes (1.2-3.4) 10^3/uL 1.70 Absolute Monocytes (0.1-0.8) 10^3/uL 0.55 Absolute Eosinophils (0.0-0.7) 10^3/uL 0.13 Absolute Basophils (0.0-0.2) 10^3/uL 0.04 VBG pH (7.31-7.41) 7.39 VBG pCO2 (41-51) mmHg 48 VBG pO2 mmHg 50 VBG HCO3 (23-28) mmol/L 29 H VBG Total CO2 (24-29) mmol/L 27 VBG O2 Saturation % 84 VBG Base Excess (-2-3) mmol/L 4 H VBG Lactate (<or=2.0) mmol/L 1.4 Sodium (136-145) mmol/L 138 Potassium (3.5-5.1) mmol/L 3.6 Chloride (98-107) mmol/L 99 Carbon Dioxide (21.0-32.0) mmol/L 29.8 Anion Gap (3-11) mmol/L 9.2 BUN (7-18) mg/dL 10 Creatinine (0.70-1.30) mg/dL 1.6 H Est GFR (CKD-EPI 2020) (mL/min/1.73m2) 58.71 Glucose (74-106) mg/dL 134 H Calcium (8.5-10.1) mg/dL 8.1 L Magnesium (1.8-2.4) mg/dL 1.8 Total Bilirubin (0.2-1.0) mg/dL 0.3 AST (15-37) U/L 27 ALT (16-63) U/L 36 Alkaline Phosphatase (46-116) U/L 126 H Troponin I (<or=76) ng/L < 4 < 4 Total Protein (6.4-8.2) g/dL 7.8 Albumin (3.4-5.0) g/dL 3.1 L Radiology: PROCEDURE INFORMATION: Exam: XR Chest Exam date and time: 04/04/2025 7:35 AM Age: 29 years old Clinical indication: Other: Unspecified; Chest pain, palpitations TECHNIQUE: Imaging protocol: Radiologic exam of the chest. Views: 1 view. COMPARISON: CR XR CHEST 2V PA LATERAL 03/14/2025 9:50 AM FINDINGS: Limitations: Low lung volumes. Portable technique. Lungs: Unremarkable. No consolidation. Pleural spaces: Unremarkable. No pleural effusion. No pneumothorax. Heart/Mediastinum: Unremarkable. No cardiomegaly. Bones/joints: Unremarkable. IMPRESSION: No evidence of active cardiopulmonary disease. Thank you for allowing us to participate in the care of your patient. Dictated and Authenticated by: Reta Singh MD 04/04/2025 8:20 AM Eastern Time ([place] & [place]) Related Data Home Medications ?Medication ?Instructions ?Recorded ?Confirmed calcium carbonate (Tums) 2,000 mg PO BID 02/02/23 04/04/25 methadone 10 mg/5 mL oral solution 100 mg PO QAM 06/12/23 04/04/25 prochlorperazine maleate 5 mg 5 mg PO TID PRN acute nausea #30 09/06/23 04/04/25 tablet tabs gabapentin 300 mg capsule 300 mg PO BID #180 caps 06/01/24 04/04/25 calcitriol 0.5 mcg capsule 1 mcg (2 x 0.5 mcg) PO .COMPLEX 06/29/24 04/04/25 #270 caps omeprazole 40 mg capsule,delayed 40 mg PO DAILY #90 caps 07/27/24 04/04/25 release polyethylene glycol 3350 17 gram 17 g PO BID PRN 10/15/24 04/04/25 oral powder packet lorazepam 1 mg tablet 1 mg PO DAILY PRN anxiety #10 tabs 10/19/24 04/04/25 cyclobenzaprine 10 mg tablet 10 mg PO TID PRN muscle spasm #30 11/16/24 04/04/25 tabs magnesium gluconate 27 mg 500 mg PO BID 01/30/25 04/04/25 magnesium (500 mg) tablet diclofenac sodium 1 % topical gel 2 g topical QID #50 grams 02/03/25 04/04/25 apixaban 5 mg tablet (Eliquis) 5 mg PO BID #60 tabs 03/08/25 04/04/25 famotidine 20 mg tablet 20 mg PO BID #30 tabs 03/15/25 04/04/25 ondansetron 4 mg disintegrating 4 mg PO Q8H PRN #20 tabs 03/15/25 04/04/25 tablet sucralfate 1 gram tablet 1 g PO QACHS #90 tabs 03/15/25 04/04/25 prochlorperazine maleate 10 mg 10 mg PO Q6H PRN #10 tabs 03/16/25 04/04/25 tablet (Compazine) folic acid 1 mg tablet 1 mg PO DAILY #30 tabs 03/17/25 04/04/25 lorazepam 1 mg tablet (Ativan) 1 mg PO DAILY PRN #4 tabs 03/29/25 04/04/25 clonazepam 1 mg tablet 1 mg PO BID #10 tabs 04/03/25 04/04/25 Previous Rx's ?Medication ?Instructions ?Recorded prochlorperazine maleate 5 mg 5 mg PO TID PRN acute nausea #30 09/06/23 tablet tabs gabapentin 300 mg capsule 300 mg PO BID #180 caps 06/01/24 calcitriol 0.5 mcg capsule 1 mcg (2 x 0.5 mcg) PO .COMPLEX 06/29/24 #270 caps omeprazole 40 mg capsule,delayed 40 mg PO DAILY #90 caps 07/27/24 release lorazepam 1 mg tablet 1 mg PO DAILY PRN anxiety #10 tabs 10/19/24 cyclobenzaprine 10 mg tablet 10 mg PO TID PRN muscle spasm #30 11/16/24 tabs diclofenac sodium 1 % topical gel 2 g topical QID #50 grams 02/03/25 apixaban 5 mg tablet (Eliquis) 5 mg PO BID #60 tabs 03/08/25 famotidine 20 mg tablet 20 mg PO BID #30 tabs 03/15/25 ondansetron 4 mg disintegrating 4 mg PO Q8H PRN #20 tabs 03/15/25 tablet sucralfate 1 gram tablet 1 g PO QACHS #90 tabs 03/15/25 prochlorperazine maleate 10 mg 10 mg PO Q6H PRN #10 tabs 03/16/25 tablet (Compazine) folic acid 1 mg tablet 1 mg PO DAILY #30 tabs 03/17/25 lorazepam 1 mg tablet (Ativan) 1 mg PO DAILY PRN #4 tabs 03/29/25 clonazepam 1 mg tablet 1 mg PO BID #10 tabs 04/03/25 Allergies Allergy/AdvReac Type Severity Reaction Status Date / Time Penicillins Allergy Skin Rash Verified 04/04/25 07:16 marijuana (cannabis) AdvReac Severe Paranoia Verified 04/04/25 07:16 amoxicillin AdvReac Intermediate Nausea Verified 04/04/25 07:16 codeine AdvReac Intermediate pass out Verified 04/04/25 07:16 dextromethorphan (From AdvReac Intermediate got Verified 04/04/25 07:16 NyQuil) really hot and sweaty doxylamine (From NyQuil) AdvReac Intermediate got Verified 04/04/25 07:16 really hot and sweaty pseudoephedrine (From NyQuil) AdvReac Intermediate got Verified 04/04/25 07:16 really hot and sweaty General Stated Complaint: Palpitatns ADRIANA: 3 Course Vital Signs Vital signs: Vital Signs Temperature 36.8 C 04/04/25 07:14 Pulse 100 H 04/04/25 07:14 Respiratory Rate 18 04/04/25 07:14 Blood Pressure 118/80 04/04/25 07:14 Pulse Oximetry 90 L 04/04/25 07:14 Temperature 36.8 C 04/04/25 07:14 Temperature Source Oral 04/04/25 07:14 Pulse 100 H 04/04/25 07:14 Respiratory Rate 18 04/04/25 07:14 Blood Pressure 118/80 04/04/25 07:14 Blood Pressure Position Sitting 04/04/25 07:14 Pulse Oximetry 90 L 04/04/25 07:14 Oxygen Delivery Method Room Air 04/04/25 07:14 Oxygen Flow Rate 0 04/04/25 07:14 Pain Level 4 04/04/25 07:14 Medical Decision Making Quality:SDOH Health Related Social Needs: Health related social needs lonely/isolated Health related social needs details patient here frequently due to anxiety. PFSH All Active Problems (Updated 04/04/25 @ 09:04 by Jamir Matson MD) Atypical chest pain (Acute) Panic attack (Acute) Abdominal pain (Acute) Normocytic anemia (Acute) Coughing up blood (Acute) Renal cyst (Acute) Back pain (Acute) Heart palpitations (Acute) Headache (Acute) Hyperhomocysteinemia (Acute) Abdominal pain, epigastric (Acute) Chest pain, unspecified (Acute) Abdominal pain (Acute) Left-sided chest pain (Acute) Pulmonary infiltrates (Acute) Snoring (Acute) Pleural effusion (Acute) Arm pain, left (Acute) Chest pain (Acute) Rt groin pain (Acute) Rash (Acute) Shortness of breath (Acute) Edema, peripheral (Acute) Anxiety (Chronic) Chest discomfort (Acute) Pulmonary embolism and infarction (Acute) Left pulmonary infiltrate on CXR (Acute) Bilateral pulmonary embolism (Acute) Tenderness of neck (Acute) Right elbow pain (Acute) Acute leg pain (Acute) Bronchitis (Acute) Well adult health check (Acute) Obstructive sleep apnea (Chronic) Metabolic dysfunction-associated fatty liver disease (MAFLD) (Acute) Fatty liver (Acute) IBS (irritable bowel syndrome) (Chronic) Obesity (Chronic) Migraine with aura (Acute) Testicle lump (Acute) Pes anserine bursitis (Acute) Left-sided Flower's palsy (Acute) Opiate dependence, continuous (Acute) 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 Possible 2' Methadone, Clnzpm (?). Surg eval (+)/No further action. History of electrolyte imbalance (Acute) Neck pain on left side (Acute) with shoulder, upper back pain.. torticollis, radiating into left hip/leg Pulmonary nodule 1 cm or greater in diameter (Chronic) Therapeutic opioid induced constipation (Acute) Sphincter of Oddi dysfunction (Chronic) Abnormal CT scan, kidney (Acute) Intrahepatic bile duct dilation (Acute) Common bile duct dilatation (Chronic) Has been dilated for quite some time, now more-so. Normal LFTs. Known gallstones. Depression (Chronic) Elevated parathyroid hormone (Acute) Family history of coronary arteriosclerosis (Chronic) Father of AR at 50, mother had AR at 42 Severe anxiety with panic (Chronic) Medical History Multiple endocrine neoplasia type I CKD (chronic kidney disease) stage 2, GFR 60-89 ml/min GFR 64-65, with Hx FLORESITA and GFR < 45 Primary hyperparathyroidism Complex medical condition Serious electrolyte imbalances, with gynecomastia, possible MEN Dx, CKD and anemia with baseline anxiety and Hx PTSD. Hypocalcemia Anxiety Depression Hyperlipidemia Family history of multiple endocrine neoplasia, type 1 PTSD (post-traumatic stress disorder) Per pt. states no triggers at this time. Surgical History History of laparoscopic cholecystectomy (~11/2023) H/O parathyroidectomy Family History Mother Anxiety Asthma Depression Sister Anxiety Depression Father Cancer lung & stomach Depression Diabetes Hypertension MEN 1 (multiple endocrine neoplasia) Social History Smoking/Tobacco Use Status: Never Smoking risk assessment performed?: Yes Alcohol Intake: never Drug use: Current Sobriety Substance use type: former substance user, crack/cocaine, heroin and painkillers Details: stopped using substances for the past 4 years Adopted: No Caregiver/Support person: No Foster care: No Household members: none Housing: apartment Number of Children: 0 Communication Needs: None Education Level: high school Do you need help understanding health information?: Never current occupation: [employer] Pets and animals: Yes (Ally) Pets and animals: dog(s) Sexually active: No Do you think of yourself as: straight/heterosexual Current gender identity: male What is your relationship status?: How often do you talk on the phone with friends or family?: twice per week How often do you get together with friends or relatives?: never Do you belong to any clubs or organized social groups?: no Panel score (0-1 are the most socially isolated patients): 0 What type of physical activity do you participate in: walking Duration: 15-30 minutes/day Frequency: 5-6 times per week Maryam/Episcopal: Mandaeism Special maryam needs: No Seatbelt use: always Helmet use: Yes Helmet use: always Drive intox or ride w/intox escort vehicle driver: No Do you feel safe at home: Yes Do you feel safe in your relationship?: Yes
[2025-04-04 07:29] LABS: BE (Venous) 4 mmol/L (-2-3); HCO3 (Venous) 29 mmol/L (23-28); O2 Sat (Venous) 84 %; TCO2 (Venous) 27 mmol/L (24-29); pCO2 (Venous) 48 mmHg (41-51); pO2 (Venous) 50 mmHg
[2025-04-04 07:30] LABS: Abs Immature Grans 0.03 10^3/uL (0.0-0.06); HCT 30.0 % (40.0-50.0); HGB 9.1 g/dL (13.5-17.5); Immature Grans % 0.5 %; MCH 24.5 pg (27.0-33.0); MCHC 30.3 % (32.0-36.0); MCV 81 fL (80-95); MPV 9.2 fL (8.0-11.0); Platelet Count 404 10^3/uL (130-400); RBC 3.71 10^6/uL (4.36-5.78); RDW 16.6 % (11.8-14.1); RDW-SD 48.8 fL; WBC 6.42 10^3/uL (4.4-10.8)
[2025-04-04 07:48] LABS: ALT 36 U/L (16-63); AST 27 U/L (15-37); Albumin 3.1 g/dL (3.4-5.0); Alkaline Phosphatase 126 U/L (46-116); Anion Gap 9.2 mmol/L (3-11); BUN 10 mg/dL (7-18); Bilirubin, Total 0.3 mg/dL (0.2-1.0); CO2 29.8 mmol/L (21.0-32.0); Calcium 8.1 mg/dL (8.5-10.1); Chloride 99 mmol/L (98-107); Estimated GFR 58.71 (mL/min/1.73m2); Glucose 134 mg/dL (74-106); Potassium 3.6 mmol/L (3.5-5.1); Sodium 138 mmol/L (136-145); Total Protein 7.8 g/dL (6.4-8.2)
[2025-04-04 07:54] LABS: Troponin I < 4 ng/L (<or=76)
[2025-04-04 08:00] LABS: Magnesium 1.8 mg/dL (1.8-2.4)
--- NOTE | 2025-04-04 08:21 | DI.[facility]_ITS ---
PROCEDURE INFORMATION: Exam: XR Chest Exam date and time: 04/04/2025 7:35 AM Age: 29 years old Clinical indication: Other: Unspecified; Chest pain, palpitations TECHNIQUE: Imaging protocol: Radiologic exam of the chest. Views: 1 view. COMPARISON: CR XR CHEST 2V PA LATERAL 03/14/2025 9:50 AM FINDINGS: Limitations: Low lung volumes. Portable technique. Lungs: Unremarkable. No consolidation. Pleural spaces: Unremarkable. No pleural effusion. No pneumothorax. Heart/Mediastinum: Unremarkable. No cardiomegaly. Bones/joints: Unremarkable. IMPRESSION: No evidence of active cardiopulmonary disease. Dictated and Authenticated by: Reta Singh MD. Orderin Dano Bowie MD
[2025-04-04 08:41] LABS: Troponin I < 4 ng/L (<or=76)
== END 2025-04-04 10:08 | disposition home or self-care (01) ==
PROVIDERS: Emergency Provider General Practice; PCP Physician Assistant
DX: R07.89 Other chest pain (principal); Z79.01 Long term (current) use of anticoagulants; Z60.8 Other problems related to social environment
CPT/HCPCS: 99283; 99284; 36415; 80053; 82805; 93005; 71045; 83605; 83735; 84484; 85025; 93010

== ENCOUNTER 2025-04-07 08:29 | Emergency (ER) | payer OTHER, SELFPAY ==
--- NOTE | 2025-04-07 08:30 | RT.EKG_ITS ---
APPROVED REPORT Exam: Resting ECG Reason for Exam: Heart Racing Patient Location: E HR:108 bpm ECG Measurements Heart Rate 108 AXIS NH 164 P 63 QRSd 97 QRS 77 QT 337 T -2 QTc 452 Conclusion Sinus tachycardia...rate> 99 No Occlusion SC
[2025-04-07 08:32] VITALS: BP 145/54; PULSE 107; RESP 18; TEMP 37.3; O2SAT 97
[2025-04-07] MEDS: hydrOXYzine HCL 25 MG TAB PO (09:10)
[2025-04-07 09:46] LABS: Anion Gap 7.5 mmol/L (3-11); BUN 12 mg/dL (7-18); CO2 31.5 mmol/L (21.0-32.0); Calcium 8.7 mg/dL (8.5-10.1); Chloride 101 mmol/L (98-107); Estimated GFR 75.32 (mL/min/1.73m2); Glucose 99 mg/dL (74-106); Magnesium 2.0 mg/dL (1.8-2.4); Potassium 4.0 mmol/L (3.5-5.1); Sodium 140 mmol/L (136-145); Troponin I < 4 ng/L (<or=76)
[2025-04-07 10:10] VITALS: BP 128/74; PULSE 81; RESP 15; O2SAT 96
--- NOTE | 2025-04-10 11:37 | W.ED.GENAD ---
Discharge Plan Disposition Patient Disposition: Home Condition: Stable Discharge Details Clinical Impression: Atypical chest pain Primary Care Provider: Sanjana Pritchett ED Provider: Luh Tsai Home Meds and New Rx's Prescriptions: Continued gabapentin 300 mg capsule 300 mg PO BID Qty: 180 3RF omeprazole 40 mg capsule,delayed release(DR/EC) 40 mg PO DAILY Qty: 90 3RF lorazepam 1 mg tablet 1 mg PO DAILY PRN (Reason: anxiety) Qty: 10 0RF Rx Instructions: Use when considering ER visit cyclobenzaprine 10 mg tablet 10 mg PO TID PRN (Reason: muscle spasm) Qty: 30 3RF Eliquis 5 mg tablet 5 mg PO BID Qty: 60 6RF methadone 10 mg/5 mL solution 100 mg PO QAM calcitriol 0.5 mcg capsule 1 mcg PO .COMPLEX Qty: 270 3RF Rx Instructions: 1 mcg orally t2 tabs qam and 1 tab QHS; folic acid 1 mg tablet 1 mg PO DAILY Qty: 30 6RF calcium carbonate [Tums] 200 mg calcium (500 mg) tablet,chewable 2,000 mg PO BID prochlorperazine maleate 5 mg tablet 5 mg PO TID PRN (Reason: acute nausea) Qty: 30 0RF polyethylene glycol 3350 17 gram powder in packet 17 g PO BID PRN magnesium gluconate 27 mg magnesium (500 mg) tablet 500 mg PO BID Rx Instructions: takes 500mg QAM and 1000mg QHS diclofenac sodium 1 % gel 2 g topical QID Qty: 50 0RF Rx Instructions: apply to single elbow, wrist or hand; for hand includes palm/fingers/back of hand famotidine 20 mg tablet 20 mg PO BID Qty: 30 0RF sucralfate 1 gram tablet 1 g PO QACHS Qty: 90 0RF ondansetron 4 mg tablet,disintegrating 4 mg PO Q8H PRNQty: 20 0RF clonazepam 1 mg tablet 1 mg PO BID Qty: 10 0RF prochlorperazine maleate [Compazine] 10 mg tablet 10 mg PO Q6H PRNQty: 10 0RF lorazepam [Ativan] 1 mg tablet 1 mg PO DAILY PRNQty: 4 0RF Discharge Instructions Instructions: Chest Pain, Adult ED Additional Instructions: Your labs look great today continue your prescribed medications follow-up with pcp as instructed recheck with pcp in 24-48 hours return earlier as needed for any concerning symptoms Referrals: Sanjana Pritchett [Primary Care Provider, Medicine] Discharge Data Discharge Date/Time-TO BE ENTERED AT DEPARTURE: 04/07/25 10:04 HPI General Date/Time Provider Initiated Documentation: 04/07/25 08:40. HPI Narrative: This 29-year-old male presents with chest pain that started just prior to arrival. He states he feels like his heart is racing. He has experienced similar symptoms to this in the past. He was walking slowly around the hospital for exercise when his symptoms started. He seems to get these episodes every several days per patient. He denies any new medications. He has been previously diagnosed with a PE for which she has been compliant with his anticoagulants. He denies any new calf swelling or tenderness hemoptysis blood in stool, or any additional complaints at this time. Related Data Home Medications ?Medication ?Instructions ?Recorded ?Confirmed calcium carbonate (Tums) 2,000 mg PO BID 02/02/23 04/10/25 methadone 10 mg/5 mL oral solution 100 mg PO QAM 06/12/23 04/10/25 prochlorperazine maleate 5 mg 5 mg PO TID PRN acute nausea #30 09/06/23 04/10/25 tablet tabs gabapentin 300 mg capsule 300 mg PO BID #180 caps 06/01/24 04/10/25 calcitriol 0.5 mcg capsule 1 mcg (2 x 0.5 mcg) PO .COMPLEX 06/29/24 04/10/25 #270 caps omeprazole 40 mg capsule,delayed 40 mg PO DAILY #90 caps 07/27/24 04/10/25 release polyethylene glycol 3350 17 gram 17 g PO BID PRN 10/15/24 04/10/25 oral powder packet lorazepam 1 mg tablet 1 mg PO DAILY PRN anxiety #10 tabs 10/19/24 04/10/25 cyclobenzaprine 10 mg tablet 10 mg PO TID PRN muscle spasm #30 11/16/24 04/10/25 tabs magnesium gluconate 27 mg 500 mg PO BID 01/30/25 04/10/25 magnesium (500 mg) tablet diclofenac sodium 1 % topical gel 2 g topical QID #50 grams 02/03/25 04/10/25 apixaban 5 mg tablet (Eliquis) 5 mg PO BID #60 tabs 03/08/25 04/10/25 famotidine 20 mg tablet 20 mg PO BID #30 tabs 03/15/25 04/10/25 ondansetron 4 mg disintegrating 4 mg PO Q8H PRN #20 tabs 03/15/25 04/10/25 tablet sucralfate 1 gram tablet 1 g PO QACHS #90 tabs 03/15/25 04/10/25 prochlorperazine maleate 10 mg 10 mg PO Q6H PRN #10 tabs 03/16/25 04/10/25 tablet (Compazine) folic acid 1 mg tablet 1 mg PO DAILY #30 tabs 03/17/25 04/10/25 lorazepam 1 mg tablet (Ativan) 1 mg PO DAILY PRN #4 tabs 03/29/25 04/10/25 clonazepam 1 mg tablet 1 mg PO BID #10 tabs 04/03/25 04/10/25 Previous Rx's ?Medication ?Instructions ?Recorded prochlorperazine maleate 5 mg 5 mg PO TID PRN acute nausea #30 09/06/23 tablet tabs gabapentin 300 mg capsule 300 mg PO BID #180 caps 06/01/24 calcitriol 0.5 mcg capsule 1 mcg (2 x 0.5 mcg) PO .COMPLEX 06/29/24 #270 caps omeprazole 40 mg capsule,delayed 40 mg PO DAILY #90 caps 07/27/24 release lorazepam 1 mg tablet 1 mg PO DAILY PRN anxiety #10 tabs 10/19/24 cyclobenzaprine 10 mg tablet 10 mg PO TID PRN muscle spasm #30 11/16/24 tabs diclofenac sodium 1 % topical gel 2 g topical QID #50 grams 02/03/25 apixaban 5 mg tablet (Eliquis) 5 mg PO BID #60 tabs 03/08/25 famotidine 20 mg tablet 20 mg PO BID #30 tabs 03/15/25 ondansetron 4 mg disintegrating 4 mg PO Q8H PRN #20 tabs 03/15/25 tablet sucralfate 1 gram tablet 1 g PO QACHS #90 tabs 03/15/25 prochlorperazine maleate 10 mg 10 mg PO Q6H PRN #10 tabs 03/16/25 tablet (Compazine) folic acid 1 mg tablet 1 mg PO DAILY #30 tabs 03/17/25 lorazepam 1 mg tablet (Ativan) 1 mg PO DAILY PRN #4 tabs 03/29/25 clonazepam 1 mg tablet 1 mg PO BID #10 tabs 04/03/25 Allergies Allergy/AdvReac Type Severity Reaction Status Date / Time Penicillins Allergy Skin Rash Verified 04/10/25 07:28 marijuana (cannabis) AdvReac Severe Paranoia Verified 04/10/25 07:28 amoxicillin AdvReac Intermediate Nausea Verified 04/10/25 07:28 codeine AdvReac Intermediate pass out Verified 04/10/25 07:28 dextromethorphan (From AdvReac Intermediate got Verified 04/10/25 07:28 NyQuil) really hot and sweaty doxylamine (From NyQuil) AdvReac Intermediate got Verified 04/10/25 07:28 really hot and sweaty pseudoephedrine (From NyQuil) AdvReac Intermediate got Verified 04/10/25 07:28 really hot and sweaty General Stated Complaint: Palpitatns ADRIANA: 3 Exam Narrative Exam Narrative: Alert and oriented 29-year-old gentleman in no acute distress no rashes or lesions no Swelling or tenderness cardiac rate rhythm regular no murmurs or rubs no abdominal tenderness no diaphoresis appreciated answering questions appropriately lungs clear to auscultation no pallor, appears anxious Course Vital Signs Vital signs: Vital Signs Temperature 37.3 C 04/07/25 08:32 Pulse 107 H 04/07/25 08:32 Respiratory Rate 18 04/07/25 08:32 Blood Pressure 145/54 H 04/07/25 08:32 Pulse Oximetry 97 04/07/25 08:32 Temperature 37.3 C 04/07/25 08:32 Temperature Source Oral 04/07/25 08:32 Pulse 81 04/07/25 10:10 Respiratory Rate 15 04/07/25 10:10 Blood Pressure 128/74 04/07/25 10:10 Blood Pressure Position Sitting 04/07/25 08:32 Pulse Oximetry 96 04/07/25 10:10 Oxygen Delivery Method Room Air 04/07/25 08:32 Oxygen Flow Rate 0 04/07/25 08:32 Pain Level 4 04/07/25 08:32 Comment Pain is sharp and shooting at times 04/07/25 08:32 Lab/Test Results Lab/Test Results: Laboratory Tests Range/Units 04/07/25 09:16 Sodium (136-145) mmol/L 140 Potassium (3.5-5.1) mmol/L 4.0 Chloride (98-107) mmol/L 101 Carbon Dioxide (21.0-32.0) mmol/L 31.5 Anion Gap (3-11) mmol/L 7.5 BUN (7-18) mg/dL 12 Creatinine (0.70-1.30) mg/dL 1.3 Est GFR (CKD-EPI 2020) (mL/min/1.73m2) 75.32 Glucose (74-106) mg/dL 99 Calcium (8.5-10.1) mg/dL 8.7 Magnesium (1.8-2.4) mg/dL 2.0 Troponin I (<or=76) ng/L < 4 Medical Decision Making Results: Troponin less than 4 no indication to repeat troponin at this time when compared to prior, and the remainder of labs are reassuring we did not check CBC as patient had a CBC performed several days prior to this visit without active bleeding Assessment and plan: Patient with recurrent chest pain with a nonischemic EKG, I reviewed his recent diagnostic workup and last CT scan from approximately 3 weeks ago. There is no evidence of acute abnormality at this time. Have a lower suspicion that this is cardiac in nature and I certainly seems like patient is stable from a pulmonary embolism standpoint. He did remain on telemetry throughout this visit and his blood pressure was 128/74 pulse of 81 respirations of 15 and temperature is afebrile with a oxygen of 97% very low suspicion for PE or cardiac etiology at time of my assessment. Encouraged to follow-up with his PCP [facility] and return earlier should he have new or worsening complaints Quality:SDOH Health Related Social Needs: Health related social needs lonely/isolated Health related social needs details patient here frequently due to anxiety. PFSH All Active Problems (Updated 04/10/25 @ 09:08 by Lester Bundy MD) Anemia (Chronic) Atypical chest pain (Acute) Atypical chest pain (Acute) Panic attack (Acute) Abdominal pain (Acute) Normocytic anemia (Acute) Coughing up blood (Acute) Renal cyst (Acute) Back pain (Acute) Heart palpitations (Acute) Headache (Acute) Hyperhomocysteinemia (Acute) Abdominal pain, epigastric (Acute) Chest pain, unspecified (Acute) Abdominal pain (Acute) Pulmonary infiltrates (Acute) Snoring (Acute) Pleural effusion (Acute) Rt groin pain (Acute) Rash (Acute) Shortness of breath (Acute) Edema, peripheral (Acute) Anxiety (Chronic) Chest discomfort (Acute) Pulmonary embolism and infarction (Acute) Left pulmonary infiltrate on CXR (Acute) Bilateral pulmonary embolism (Acute) Tenderness of neck (Acute) Right elbow pain (Acute) Acute leg pain (Acute) Bronchitis (Acute) Well adult health check (Acute) Obstructive sleep apnea (Chronic) Metabolic dysfunction-associated fatty liver disease (MAFLD) (Acute) Fatty liver (Acute) IBS (irritable bowel syndrome) (Chronic) Obesity (Chronic) Migraine with aura (Acute) Testicle lump (Acute) Pes anserine bursitis (Acute) Left-sided Flower's palsy (Acute) Opiate dependence, continuous (Acute) 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 Possible 2' Methadone, Clnzpm (?). Surg eval (+)/No further action. History of electrolyte imbalance (Acute) Neck pain on left side (Acute) with shoulder, upper back pain.. torticollis, radiating into left hip/leg Pulmonary nodule 1 cm or greater in diameter (Chronic) Therapeutic opioid induced constipation (Acute) Sphincter of Oddi dysfunction (Chronic) Abnormal CT scan, kidney (Acute) Intrahepatic bile duct dilation (Acute) Common bile duct dilatation (Chronic) Has been dilated for quite some time, now more-so. Normal LFTs. Known gallstones. Depression (Chronic) Elevated parathyroid hormone (Acute) Family history of coronary arteriosclerosis (Chronic) Father of [place] at 50, mother had [place] at 42 Severe anxiety with panic (Chronic) Medical History Multiple endocrine neoplasia type I CKD (chronic kidney disease) stage 2, GFR 60-89 ml/min GFR 64-65, with Hx FLORESITA and GFR < 45 Primary hyperparathyroidism Complex medical condition Serious electrolyte imbalances, with gynecomastia, possible MEN Dx, CKD and anemia with baseline anxiety and Hx PTSD. Hypocalcemia Anxiety Depression Hyperlipidemia Family history of multiple endocrine neoplasia, type 1 PTSD (post-traumatic stress disorder) Per pt. states no triggers at this time. Surgical History History of laparoscopic cholecystectomy (~11/2023) H/O parathyroidectomy Family History Mother Anxiety Asthma Depression Sister Anxiety Depression Father Cancer lung & stomach Depression Diabetes Hypertension MEN 1 (multiple endocrine neoplasia) Social History Smoking/Tobacco Use Status: Never Smoking risk assessment performed?: Yes Alcohol Intake: never Drug use: Current Sobriety Substance use type: former substance user, crack/cocaine, heroin and painkillers Details: stopped using substances for the past 4 years Adopted: No Caregiver/Support person: No Foster care: No Household members: none Housing: apartment Number of Children: 0 Communication Needs: None Education Level: high school Do you need help understanding health information?: Never current occupation: [employer] Pets and animals: Yes (Ally) Pets and animals: dog(s) Sexually active: No Do you think of yourself as: straight/heterosexual Current gender identity: male What is your relationship status?: How often do you talk on the phone with friends or family?: twice per week How often do you get together with friends or relatives?: never Do you belong to any clubs or organized social groups?: no Panel score (0-1 are the most socially isolated patients): 0 What type of physical activity do you participate in: walking Duration: 15-30 minutes/day Frequency: 5-6 times per week Maryam/Gnosticism: Mormonism Special maryam needs: No Seatbelt use: always Helmet use: Yes Helmet use: always Drive intox or ride w/intox pizza 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
== END 2025-04-07 10:04 | disposition home or self-care (01) ==
PROVIDERS: Emergency Provider Physician Assistant; PCP Physician Assistant
DX: I95.1 Orthostatic hypotension (principal); N18.2 Chronic kidney disease, stage 2 (mild); R00.0 Tachycardia, unspecified; E89.2 Postprocedural hypoparathyroidism; E78.5 Hyperlipidemia, unspecified; Z86.718 Personal history of other venous thrombosis and embolism; Z79.01 Long term (current) use of anticoagulants
CPT/HCPCS: 80048; 93005; 99283; 83735; 84484; 93010

== ENCOUNTER 2025-04-10 07:23 | Emergency (ER) | payer OTHER, SELFPAY ==
[2025-04-10] VITALS (9 sets, daily range): BP systolic 114–156; BP diastolic 59–91; PULSE 78–119; RESP 18; TEMP 37.1; O2SAT 91–97
--- NOTE | 2025-04-10 07:45 | DI.CT_ITS ---
Exam(s) CT ABDOMEN PELVIS W EXAM: CT ABDOMEN PELVIS W CLINICAL HISTORY: LLQ pain after coughing yesterday, ttp LLQ TECHNIQUE: Imaging Protocol: Axial computed tomography images with coronal and sagittal reformatted images were created and reviewed. CONTRAST MATERIAL: Intravenous: Omnipaque 350 Contrast volume:100 mL Oral: No COMPARISON: CT CT CHEST PE ABD PELVIS W from 08/11/[address] ABDOMEN PELVIS W from 11/06/[address] CHEST PE CTA from 11/29/[address] ABDOMEN PELVIS W from 09/27/[address] ABDOMEN PELVIS W from 10/02/[address] ABDOMEN PELVIS W from 01/24/[address] ABDOMEN PELVIS W from 03/16/2025 FINDINGS: ABDOMEN: Lung Bases: No acute abnormality. Liver: Normal density. There are no suspicious masses present. The liver is unchanged compared to prior examinations. Portal, Superior Mesenteric, and Splenic Veins: Unremarkable. Gallbladder and Biliary Tract: Status post cholecystectomy. The common duct is unchanged compared to the prior examination. Pancreas: Normal density, no abnormal calcifications or inflammatory process. Spleen: Normal. Adrenals: No masses seen. Kidneys: Normal size, contour and axis. No radiodense stones or obstructive uropathy. There is a single round well-circumscribed hypodensity in the midpole of the right kidney measuring 1.4 x 1.5 cm. This compares to 1.5 x 1.5 cm on the examination from 09/27/2024. The well-circumscribed hypodensity in the superior pole of the left kidney measures 2.1 x 2.4 cm on the current examination. This compares to 2.2 x 2.3 cm on the examination from 09/27/2024. The well-circumscribed hypodense lesion in the midpole of the left kidney measures 1.4 cm compared to 1.3 cm on the 09/27/2024 examination. The lesion in the inferior pole measures 1.4 cm compared to 1.4 cm on the 09/27/2024 examination. There are no new renal lesions. Abdominal Aorta: Abdominal portion non-dilated. Bowel: No obstruction or bowel wall thickening. Appendix is unremarkable. Peritoneal Cavity: No ascites, collection or mesenteric inflammatory response. No free air. Lymph Nodes: Within normal limits. Bones: Within normal limits for the patient's age. Soft Tissues: There is a small fat containing right inguinal hernia. PELVIS: Bladder: Symmetric distention, no gross wall thickening. Reproductive Organs: Unremarkable as visualized. Lymph Nodes: Within normal limits. Bones: Within normal limits for the patient's age. IMPRESSION: 1. No acute abdominal or pelvic process. 2. Stable renal lesions. Further characterization with MRI is recommended. 3. The preliminary [facility] report was reviewed. RADIATION DOSE DELIVERED: 1,770.67mGy.cm Total DLP DATA REPOSITORY: All CT scans at this facility are submitted to the National Radiology Data Registry (NRDR) Dose Index Registry (DIR) with the [employer] (ACR). RADIATION OPTIMIZATION: All CT scans at this facility use at least one of these dose optimization techniques: automated exposure control; mA and/or kV adjustment per patient size (includes targeted exams where dose is matched to clinical indication); or iterative reconstruction.
--- NOTE | 2025-04-10 08:04 | W.ED.GENAD ---
Discharge Plan Disposition Patient Disposition: Home Condition: Stable Discharge Details Clinical Impression: Abdominal pain, Anemia Primary Care Provider: Sanjana Pritchett ED Provider: Lester Bundy Home Meds and New Rx's Prescriptions: Continued gabapentin 300 mg capsule 300 mg PO BID Qty: 180 3RF omeprazole 40 mg capsule,delayed release(DR/EC) 40 mg PO DAILY Qty: 90 3RF lorazepam 1 mg tablet 1 mg PO DAILY PRN (Reason: anxiety) Qty: 10 0RF Rx Instructions: Use when considering ER visit cyclobenzaprine 10 mg tablet 10 mg PO TID PRN (Reason: muscle spasm) Qty: 30 3RF Eliquis 5 mg tablet 5 mg PO BID Qty: 60 6RF methadone 10 mg/5 mL solution 100 mg PO QAM calcitriol 0.5 mcg capsule 1 mcg PO .COMPLEX Qty: 270 3RF Rx Instructions: 1 mcg orally t2 tabs qam and 1 tab QHS; folic acid 1 mg tablet 1 mg PO DAILY Qty: 30 6RF calcium carbonate [Tums] 200 mg calcium (500 mg) tablet,chewable 2,000 mg PO BID prochlorperazine maleate 5 mg tablet 5 mg PO TID PRN (Reason: acute nausea) Qty: 30 0RF polyethylene glycol 3350 17 gram powder in packet 17 g PO BID PRN magnesium gluconate 27 mg magnesium (500 mg) tablet 500 mg PO BID Rx Instructions: takes 500mg QAM and 1000mg QHS diclofenac sodium 1 % gel 2 g topical QID Qty: 50 0RF Rx Instructions: apply to single elbow, wrist or hand; for hand includes palm/fingers/back of hand famotidine 20 mg tablet 20 mg PO BID Qty: 30 0RF sucralfate 1 gram tablet 1 g PO QACHS Qty: 90 0RF ondansetron 4 mg tablet,disintegrating 4 mg PO Q8H PRNQty: 20 0RF clonazepam 1 mg tablet 1 mg PO BID Qty: 10 0RF prochlorperazine maleate [Compazine] 10 mg tablet 10 mg PO Q6H PRNQty: 10 0RF lorazepam [Ativan] 1 mg tablet 1 mg PO DAILY PRNQty: 4 0RF No Action calcitriol 0.5 mcg capsule See Rx Instructions .ROUTE .COMPLEX Qty: 21 0RF Rx Instructions: take 2 capsules by mouth qAM and 1 tab qHS per day Discharge Instructions Instructions: Abdominal Pain, Adult ED Additional Instructions: Please follow-up with your primary care physician. Return to the emergency department immediately for any worsening or new concerning symptoms. Referrals: Sanjana Pritchett [Primary Care Provider, Medicine] Discharge Data Discharge Date/Time-TO BE ENTERED AT DEPARTURE: 04/10/25 09:11 HPI General Mode of arrival: ambulatory. Date/Time Provider Initiated Documentation: 04/10/25 07:23. Limitations to Documentation: no limitations. Information obtained by: patient. HPI Narrative: HISTORY OF PRESENT ILLNESS This is a 29-year-old male presenting with left lower quadrant pain after a strong cough yesterday morning. The patient reports that the pain began after he took a sip of a drink that went down the wrong tube, leading to a forceful cough. He describes the pain as feeling like a rip or tear in the left lower quadrant, which worsened overnight. The pain is localized to the left lower abdomen and is described as decently bad, rated as a 7 out of 10 on the pain scale. The pain is exacerbated by touching the area, performing a dragging motion, sitting up straight, coughing, or bending down. The patient also reports feeling a small bulge in the area when he coughs, which he describes as a weird tear. No testicular pain. The patient does not smoke cigarettes and reports no drug use. Related Data Home Medications Medication Instructions Recorded Confirmed calcium carbonate (Tums) 2,000 mg PO BID 02/02/23 04/14/25 methadone 10 mg/5 mL oral solution 100 mg PO QAM 06/12/23 04/14/25 prochlorperazine maleate 5 mg 5 mg PO TID PRN acute nausea #30 09/06/23 04/14/25 tablet tabs gabapentin 300 mg capsule 300 mg PO BID #180 caps 06/01/24 04/14/25 calcitriol 0.5 mcg capsule 1 mcg (2 x 0.5 mcg) PO .COMPLEX 06/29/24 04/14/25 #270 caps omeprazole 40 mg capsule,delayed 40 mg PO DAILY #90 caps 07/27/24 04/14/25 release polyethylene glycol 3350 17 gram 17 g PO BID PRN 10/15/24 04/14/25 oral powder packet lorazepam 1 mg tablet 1 mg PO DAILY PRN anxiety #10 tabs 10/19/24 04/14/25 cyclobenzaprine 10 mg tablet 10 mg PO TID PRN muscle spasm #30 11/16/24 04/14/25 tabs magnesium gluconate 27 mg 500 mg PO BID 01/30/25 04/14/25 magnesium (500 mg) tablet diclofenac sodium 1 % topical gel 2 g topical QID #50 grams 02/03/25 04/14/25 apixaban 5 mg tablet (Eliquis) 5 mg PO BID #60 tabs 03/08/25 04/14/25 famotidine 20 mg tablet 20 mg PO BID #30 tabs 03/15/25 04/14/25 ondansetron 4 mg disintegrating 4 mg PO Q8H PRN #20 tabs 03/15/25 04/14/25 tablet sucralfate 1 gram tablet 1 g PO QACHS #90 tabs 03/15/25 04/14/25 prochlorperazine maleate 10 mg 10 mg PO Q6H PRN #10 tabs 03/16/25 04/14/25 tablet (Compazine) folic acid 1 mg tablet 1 mg PO DAILY #30 tabs 03/17/25 04/14/25 lorazepam 1 mg tablet (Ativan) 1 mg PO DAILY PRN #4 tabs 03/29/25 04/14/25 clonazepam 1 mg tablet 1 mg PO BID #10 tabs 04/03/25 04/14/25 calcitriol 0.5 mcg capsule See Rx Instructions .Route 04/12/25 04/14/25 .COMPLEX #21 caps Previous Rx's Medication Instructions Recorded prochlorperazine maleate 5 mg 5 mg PO TID PRN acute nausea #30 09/06/23 tablet tabs gabapentin 300 mg capsule 300 mg PO BID #180 caps 06/01/24 calcitriol 0.5 mcg capsule 1 mcg (2 x 0.5 mcg) PO .COMPLEX 06/29/24 #270 caps omeprazole 40 mg capsule,delayed 40 mg PO DAILY #90 caps 07/27/24 release lorazepam 1 mg tablet 1 mg PO DAILY PRN anxiety #10 tabs 10/19/24 cyclobenzaprine 10 mg tablet 10 mg PO TID PRN muscle spasm #30 11/16/24 tabs diclofenac sodium 1 % topical gel 2 g topical QID #50 grams 02/03/25 apixaban 5 mg tablet (Eliquis) 5 mg PO BID #60 tabs 03/08/25 famotidine 20 mg tablet 20 mg PO BID #30 tabs 03/15/25 ondansetron 4 mg disintegrating 4 mg PO Q8H PRN #20 tabs 03/15/25 tablet sucralfate 1 gram tablet 1 g PO QACHS #90 tabs 03/15/25 prochlorperazine maleate 10 mg 10 mg PO Q6H PRN #10 tabs 03/16/25 tablet (Compazine) folic acid 1 mg tablet 1 mg PO DAILY #30 tabs 03/17/25 lorazepam 1 mg tablet (Ativan) 1 mg PO DAILY PRN #4 tabs 03/29/25 clonazepam 1 mg tablet 1 mg PO BID #10 tabs 04/03/25 calcitriol 0.5 mcg capsule See Rx Instructions .Route 04/12/25 .COMPLEX #21 caps Allergies Allergy/AdvReac Type Severity Reaction Status Date / Time Penicillins Allergy Skin Rash Verified 04/14/25 14:02 marijuana (cannabis) AdvReac Severe Paranoia Verified 04/14/25 14:02 amoxicillin AdvReac Intermediate Nausea Verified 04/14/25 14:02 codeine AdvReac Intermediate pass out Verified 04/14/25 14:02 dextromethorphan (From AdvReac Intermediate got Verified 04/14/25 14:02 NyQuil) really hot and sweaty doxylamine (From NyQuil) AdvReac Intermediate got Verified 04/14/25 14:02 really hot and sweaty pseudoephedrine (From NyQuil) AdvReac Intermediate got Verified 04/14/25 14:02 really hot and sweaty General Stated Complaint: Abd Prob ADRIANA: 3 Review of Systems Gastrointestinal Gastrointestinal: Reports as per HPI and Reports abdominal pain Exam Const General: cooperative and no acute distress HENMT Mouth: moist mucous membranes Eyes Conjunctivae: normal conjunctivae Sclera: normal sclerae EOM: EOM intact bilaterally Resp Auscultation: clear to auscultation bilaterally, no rales, no rhonchi and no wheezes Cardio Jugular venous pressure: no JVD Rate: regular rate and not tachycardic Rhythm: regular rhythm GI Palpation: soft, not firm, no guarding, no masses, not rigid and tender in the LLQ; with no rebound tenderness Skin General skin exam: no rashes or lesions noted Neuro General: patient alert, patient awake and tone normal Course Vital Signs Vital signs: Vital Signs Temperature 37.1 C 04/10/25 07:25 Pulse 119 H 04/10/25 07:25 Respiratory Rate 18 04/10/25 07:25 Blood Pressure 156/91 H 04/10/25 07:25 Pulse Oximetry 96 04/10/25 07:25 Temperature 37.1 C 04/10/25 07:29 Temperature Source Oral 04/10/25 07:29 Pulse 119 H 04/10/25 07:29 Respiratory Rate 18 04/10/25 07:29 Blood Pressure 156/91 H 04/10/25 07:29 Pulse Oximetry 96 04/10/25 07:29 Medical Decision Making ASSESSMENT AND PLAN Initial Assessment: 29-year-old male presenting with left lower quadrant pain after a strong cough, describing a sensation of tearing. Pain rated 7/10, worsened by movement and palpation. No testicular pain currently, though history of a cyst on the left testicle causing occasional pain. Differential Diagnosis: Hernia versus muscle strain ED Course: - Considered acute intra-abdominal surgical process including acute hernia. CT of the abdomen pelvis was interpreted by radiology:Kidneys: Normal size, contour and axis. No radiodense stones or obstructive uropathy. There is a single round well-circumscribed hypodensity in the midpole of the right kidney measuring 1.4 x 1.5 cm. This compares to 1.5 x 1.5 cm on the examination from 09/27/2024. The well-circumscribed hypodensity in the superior pole of the left kidney measures 2.1 x 2.4 cm on the current examination. This compares to 2.2 x 2.3 cm on the examination from 09/27/2024. The well-circumscribed hypodense lesion in the midpole of the left kidney measures 1.4 cm compared to 1.3 cm on the 09/27/2024 examination. The lesion in the inferior pole measures 1.4 cm compared to 1.4 cm on the 09/27/2024 examination. There are no new renal lesions. 1. No acute abdominal or pelvic process. 2. Stable renal lesions. Further characterization with MRI is recommended. 3. The preliminary [facility] report was reviewed. Results were discussed with the patient. He was advised to follow-up with PCP regarding further characterization with MRI is recommended. Suspect muscle strain. Usual and customary discharge instructions were reviewed. Clinical Impression: - Left lower quadrant pain - Abdominal muscle strain Disposition: - Follow-Up: Symptomatic treatment, rest, follow-up if symptoms persist. This document was written with the assistance of FATMATA Espino. The patient consented to its use. Lab Data Lab results reviewed: Yes I reviewed the patient's lab results. Labs: Laboratory Tests Range/Units 04/10/25 08:12 WBC (4.4-10.8) 10^3/uL 5.99 RBC (4.36-5.78) 10^6/uL 3.63 L Hgb (13.5-17.5) g/dL 8.9 L Hct (40.0-50.0) % 29.4 L MCV (80-95) fL 81 MCH (27.0-33.0) pg 24.5 L MCHC (32.0-36.0) % 30.3 L RDW (11.8-14.1) % 16.2 H Plt Count (130-400) 10^3/uL 365 MPV (8.0-11.0) fL 9.5 Immature Gran % % 0.3 Neutrophils % % 64.4 Lymphocytes % % 23.9 Monocytes % % 9.2 Eosinophils % % 1.7 Basophils % % 0.5 Nucleated RBC % (0.0-0.3) % 0.0 Absolute Neutrophils (1.2-6.7) 10^3/uL 3.86 Absolute Lymphocytes (1.2-3.4) 10^3/uL 1.43 Absolute Monocytes (0.1-0.8) 10^3/uL 0.55 Absolute Eosinophils (0.0-0.7) 10^3/uL 0.10 Absolute Basophils (0.0-0.2) 10^3/uL 0.03 Sodium (136-145) mmol/L 138 Potassium (3.5-5.1) mmol/L 3.9 Chloride (98-107) mmol/L 99 Carbon Dioxide (21.0-32.0) mmol/L 33.5 H Anion Gap (3-11) mmol/L 5.5 BUN (7-18) mg/dL 13 Creatinine (0.70-1.30) mg/dL 1.5 H Est GFR (CKD-EPI 2020) (mL/min/1.73m2) 63.44 Glucose (74-106) mg/dL 97 Calcium (8.5-10.1) mg/dL 8.5 Total Bilirubin (0.2-1.0) mg/dL 0.2 AST (15-37) U/L 25 ALT (16-63) U/L 34 Alkaline Phosphatase (46-116) U/L 136 H Total Protein (6.4-8.2) g/dL 7.6 Albumin (3.4-5.0) g/dL 3.1 L Lipase (<78) U/L 22 Quality:SDOH Health Related Social Needs: Health related social needs lonely/isolated Health related social needs details patient here frequently due to anxiety. PFSH All Active Problems (Updated 04/14/25 @ 00:04 by HAMMAD WILEY) Weakness (Acute) Encounter for medication refill (Acute) Orthostasis (Acute) Anemia (Chronic) Atypical chest pain (Acute) Atypical chest pain (Acute) Panic attack (Acute) Abdominal pain (Acute) Normocytic anemia (Acute) Coughing up blood (Acute) Renal cyst (Acute) Back pain (Acute) Heart palpitations (Acute) Headache (Acute) Hyperhomocysteinemia (Acute) Abdominal pain, epigastric (Acute) Pulmonary infiltrates (Acute) Snoring (Acute) Pleural effusion (Acute) Rt groin pain (Acute) Rash (Acute) Shortness of breath (Acute) Edema, peripheral (Acute) Anxiety (Chronic) Chest discomfort (Acute) Pulmonary embolism and infarction (Acute) Left pulmonary infiltrate on CXR (Acute) Bilateral pulmonary embolism (Acute) Tenderness of neck (Acute) Right elbow pain (Acute) Acute leg pain (Acute) Bronchitis (Acute) Well adult health check (Acute) Obstructive sleep apnea (Chronic) Metabolic dysfunction-associated fatty liver disease (MAFLD) (Acute) Fatty liver (Acute) IBS (irritable bowel syndrome) (Chronic) Obesity (Chronic) Migraine with aura (Acute) Testicle lump (Acute) Pes anserine bursitis (Acute) Left-sided Flower's palsy (Acute) Opiate dependence, continuous (Acute) 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 Possible 2' Methadone, Clnzpm (?). Surg eval (+)/No further action. History of electrolyte imbalance (Acute) Neck pain on left side (Acute) with shoulder, upper back pain.. torticollis, radiating into left hip/leg Pulmonary nodule 1 cm or greater in diameter (Chronic) Therapeutic opioid induced constipation (Acute) Sphincter of Oddi dysfunction (Chronic) Abnormal CT scan, kidney (Acute) Intrahepatic bile duct dilation (Acute) Common bile duct dilatation (Chronic) Has been dilated for quite some time, now more-so. Normal LFTs. Known gallstones. Depression (Chronic) Elevated parathyroid hormone (Acute) Family history of coronary arteriosclerosis (Chronic) Father of AL at 50, mother had AL at 42 Severe anxiety with panic (Chronic) Medical History Multiple endocrine neoplasia type I CKD (chronic kidney disease) stage 2, GFR 60-89 ml/min GFR 64-65, with Hx FLORESITA and GFR < 45 Primary hyperparathyroidism Complex medical condition Serious electrolyte imbalances, with gynecomastia, possible MEN Dx, CKD and anemia with baseline anxiety and Hx PTSD. Hypocalcemia Anxiety Depression Hyperlipidemia Family history of multiple endocrine neoplasia, type 1 PTSD (post-traumatic stress disorder) Per pt. states no triggers at this time. Surgical History History of laparoscopic cholecystectomy (~11/2023) H/O parathyroidectomy Family History Mother Anxiety Asthma Depression Sister Anxiety Depression Father Cancer lung & stomach Depression Diabetes Hypertension MEN 1 (multiple endocrine neoplasia) Social History Smoking/Tobacco Use Status: Never Smoking risk assessment performed?: Yes Alcohol Intake: never Drug use: Current Sobriety Substance use type: former substance user, crack/cocaine, heroin and painkillers Details: stopped using substances for the past 4 years Adopted: No Caregiver/Support person: No Foster care: No Household members: none Housing: apartment Number of Children: 0 Communication Needs: None Education Level: high school Do you need help understanding health information?: Never current occupation: [employer] Pets and animals: Yes (Ally) Pets and animals: dog(s) Sexually active: No Do you think of yourself as: straight/heterosexual Current gender identity: male What is your relationship status?: How often do you talk on the phone with friends or family?: twice per week How often do you get together with friends or relatives?: never Do you belong to any clubs or organized social groups?: no Panel score (0-1 are the most socially isolated patients): 0 What type of physical activity do you participate in: walking Duration: 15-30 minutes/day Frequency: 5-6 times per week Maryam/Baptism: Synagogue Special maryam needs: No Seatbelt use: always Helmet use: Yes Helmet use: always Drive intox or ride w/intox yard driver: No Do you feel safe at home: Yes Do you feel safe in your relationship?: Yes
[2025-04-10 08:21] LABS: Abs Immature Grans 0.02 10^3/uL (0.0-0.06); HCT 29.4 % (40.0-50.0); HGB 8.9 g/dL (13.5-17.5); Immature Grans % 0.3 %; MCH 24.5 pg (27.0-33.0); MCHC 30.3 % (32.0-36.0); MCV 81 fL (80-95); MPV 9.5 fL (8.0-11.0); Platelet Count 365 10^3/uL (130-400); RBC 3.63 10^6/uL (4.36-5.78); RDW 16.2 % (11.8-14.1); RDW-SD 48.3 fL; WBC 5.99 10^3/uL (4.4-10.8)
[2025-04-10] MEDS: Normal Saline - Diluent 50 ML VIAL IJ (08:27)
[2025-04-10] MEDS: Normal Saline Flush 10 ML SYR IVP (08:28)
[2025-04-10] MEDS: Omnipaque 350 MG/ML 100 ML BTL IJ (08:28)
[2025-04-10 08:37] LABS: ALT 34 U/L (16-63); AST 25 U/L (15-37); Albumin 3.1 g/dL (3.4-5.0); Alkaline Phosphatase 136 U/L (46-116); Anion Gap 5.5 mmol/L (3-11); BUN 13 mg/dL (7-18); Bilirubin, Total 0.2 mg/dL (0.2-1.0); CO2 33.5 mmol/L (21.0-32.0); Calcium 8.5 mg/dL (8.5-10.1); Chloride 99 mmol/L (98-107); Glucose 97 mg/dL (74-106); Lipase 22 U/L (<78); Potassium 3.9 mmol/L (3.5-5.1); Sodium 138 mmol/L (136-145); Total Protein 7.6 g/dL (6.4-8.2)
--- NOTE | 2025-04-10 08:51 | DI.[facility]_ITS ---
PROCEDURE INFORMATION: Exam: CT Abdomen And Pelvis With Contrast Exam date and time: 04/10/2025 8:20 AM Age: 29 years old Clinical indication: Other: Llq pain after coughing yesterday, ttp llq; Prior surgery; Surgery date: 6+ months; Surgery type: Cholysectomy TECHNIQUE: Imaging protocol: Computed tomography of the abdomen and pelvis with contrast. Contrast material: OMNIPAQUE 350; Contrast volume: 100 ml; Contrast route: INTRAVENOUS (IV); COMPARISON: CT ABDOMEN PELVIS W 03/16/2025 9:17 AM FINDINGS: Tubes, catheters and devices: Surgical clips in the pelvis Liver: Normal. No mass. Gallbladder and biliary ducts: Cholecystectomy Pancreas: Pancreatic atrophy Spleen: Normal. No splenomegaly. Adrenal glands: Normal. No mass. Kidneys and ureters: 2.4 cm mass medial left kidney. It was present on March 16.. Additional 15 mm low-attenuation mass in the posterior right kidney 37 Hounsfield units. It was present on the prior study as well . Stomach and bowel: Unremarkable. No obstruction. No mucosal thickening. Appendix: No evidence of appendicitis. Intraperitoneal space: Unremarkable. No free air. No significant fluid collection. Vasculature: Unremarkable. No abdominal aortic aneurysm. Lymph nodes: Unremarkable. No enlarged lymph nodes. Urinary bladder: Unremarkable as visualized. Reproductive: Unremarkable as visualized. Bones/joints: Unremarkable. No acute fracture. Soft tissues: Unremarkable. IMPRESSION: 2.4 cm mass medial left kidney. It was present on March 16.. Additional 15 mm low-attenuation mass in the posterior right kidney 37 Hounsfield units. It was present on the prior study as well . Recommend nonemergent evaluation of the mass with MR without and with contrast Dictated and Authenticated by: Mary Alcaraz MD. Orderin Niharika Batista MD
== END 2025-04-10 09:11 | disposition home or self-care (01) ==
PROVIDERS: Emergency Provider Student in an Organized Health Care Education/Training Program; PCP Physician Assistant
DX: R10.32 Left lower quadrant pain (principal); D64.9 Anemia, unspecified
CPT/HCPCS: 99283; 99285; 36415; 80053; 83690; 74177; 85025; J3490

== ENCOUNTER 2025-04-10 15:24 | Emergency (ER) | payer OTHER, SELFPAY ==
[2025-04-10] VITALS (23 sets, daily range): BP systolic 137; BP diastolic 56–77; PULSE 78–123; RESP 12–22; TEMP 36.8; O2SAT 93–98
--- NOTE | 2025-04-10 15:30 | RT.EKG_ITS ---
APPROVED REPORT Exam: Resting ECG Reason for Exam: chest pain Patient Location: E HR:113 bpm ECG Measurements Heart Rate 113 AXIS SC 161 P 44 QRSd 92 QRS 28 QT 342 T 30 QTc 469 Conclusion Sinus tachycardia, rate 113 No interval abnormalities No STEMI No significant changes from priors
--- NOTE | 2025-04-10 17:40 | W.ED.GENAD ---
Discharge Plan Disposition Patient Disposition: Home Condition: Stable Discharge Details Clinical Impression: Orthostasis Primary Care Provider: Sanjana Pritchett ED Provider: Tere Adams Home Meds and New Rx's Prescriptions: No Action gabapentin 300 mg capsule 300 mg PO BID Qty: 180 3RF omeprazole 40 mg capsule,delayed release(DR/EC) 40 mg PO DAILY Qty: 90 3RF lorazepam 1 mg tablet 1 mg PO DAILY PRN (Reason: anxiety) Qty: 10 0RF Rx Instructions: Use when considering ER visit cyclobenzaprine 10 mg tablet 10 mg PO TID PRN (Reason: muscle spasm) Qty: 30 3RF Eliquis 5 mg tablet 5 mg PO BID Qty: 60 6RF methadone 10 mg/5 mL solution 100 mg PO QAM calcitriol 0.5 mcg capsule 1 mcg PO .COMPLEX Qty: 270 3RF Rx Instructions: 1 mcg orally t2 tabs qam and 1 tab QHS; folic acid 1 mg tablet 1 mg PO DAILY Qty: 30 6RF calcium carbonate [Tums] 200 mg calcium (500 mg) tablet,chewable 2,000 mg PO BID prochlorperazine maleate 5 mg tablet 5 mg PO TID PRN (Reason: acute nausea) Qty: 30 0RF polyethylene glycol 3350 17 gram powder in packet 17 g PO BID PRN magnesium gluconate 27 mg magnesium (500 mg) tablet 500 mg PO BID Rx Instructions: takes 500mg QAM and 1000mg QHS diclofenac sodium 1 % gel 2 g topical QID Qty: 50 0RF Rx Instructions: apply to single elbow, wrist or hand; for hand includes palm/fingers/back of hand famotidine 20 mg tablet 20 mg PO BID Qty: 30 0RF sucralfate 1 gram tablet 1 g PO QACHS Qty: 90 0RF ondansetron 4 mg tablet,disintegrating 4 mg PO Q8H PRNQty: 20 0RF clonazepam 1 mg tablet 1 mg PO BID Qty: 10 0RF prochlorperazine maleate [Compazine] 10 mg tablet 10 mg PO Q6H PRNQty: 10 0RF lorazepam [Ativan] 1 mg tablet 1 mg PO DAILY PRNQty: 4 0RF Discharge Instructions Instructions: Orthostatic hypotension Additional Instructions: You were seen in the emergency department today for evaluation of dizziness, fast heart rate, and numbness and tingling of your hands. Your symptoms are most concerning for orthostasis, when the heart rate increases and blood pressure decreases which can be due to dehydration. I suspect this is due to GI losses, as you have had multiple bowel movements related to your polyethylene glycol. You received IV fluids, had reassuring laboratory studies and had an EKG that did not show any sign of damage to your heart. Your cardiac enzymes were also normal and your electrolytes are within typical limits. For the next few days I recommend that you decrease the polyethylene glycol, and increase your hydration with water and sports drinks. Please use caution and take transitions from sitting to standing very slow to allow your body to equilibrate, and avoid dizziness or fainting. Please follow-up with your primary care provider in the next few days to discuss this visit and any symptoms that change, worsen, or persist. Thank you for allowing us to be part of your care. HPI General Mode of arrival: ambulatory. Date/Time Provider Initiated Documentation: 04/10/25 16:04. Limitations to Documentation: no limitations. Information obtained by: patient, family and old records reviewed. HPI Narrative: This is a 29-year-old male patient with a past medical history significant for MEN, pulmonary embolism on Eliquis, IBS, JOSE JUAN, anemia, who is presenting for evaluation of dizziness, tachycardia, and changes in the color of his nailbeds. The patient reports that he has been experiencing multiple large liquid stools in the setting of using polyethylene glycol for chronic constipation management. He states that he has had upwards of 10 liquid stools today. He was seen this morning for abdominal discomfort and had a CT of his abdomen and pelvis without acute findings, and was discharged home. Shortly after that event he began to notice that the nails of his fingers were quite purple, had a heaviness in his chest and a strange sensation in the back of his hands. He reports that when he stood up he noted that his heart rate increased into the 120s, which caused him concern. He endorsed a heaviness in his chest during that time. States the max that his heart rate went was 150, this improves with sitting and resting position. He reports that he has been attempting to maintain his oral hydration but is concerned that he may be dehydrated due to the GI losses. He has not missed any doses of his Eliquis, no other changes to his health problems. Related Data Home Medications ?Medication ?Instructions ?Recorded ?Confirmed calcium carbonate (Tums) 2,000 mg PO BID 02/02/23 04/10/25 methadone 10 mg/5 mL oral solution 100 mg PO QAM 06/12/23 04/10/25 prochlorperazine maleate 5 mg 5 mg PO TID PRN acute nausea #30 09/06/23 04/10/25 tablet tabs gabapentin 300 mg capsule 300 mg PO BID #180 caps 06/01/24 04/10/25 calcitriol 0.5 mcg capsule 1 mcg (2 x 0.5 mcg) PO .COMPLEX 06/29/24 04/10/25 #270 caps omeprazole 40 mg capsule,delayed 40 mg PO DAILY #90 caps 07/27/24 04/10/25 release polyethylene glycol 3350 17 gram 17 g PO BID PRN 10/15/24 04/10/25 oral powder packet lorazepam 1 mg tablet 1 mg PO DAILY PRN anxiety #10 tabs 10/19/24 04/10/25 cyclobenzaprine 10 mg tablet 10 mg PO TID PRN muscle spasm #30 11/16/24 04/10/25 tabs magnesium gluconate 27 mg 500 mg PO BID 01/30/25 04/10/25 magnesium (500 mg) tablet diclofenac sodium 1 % topical gel 2 g topical QID #50 grams 02/03/25 04/10/25 apixaban 5 mg tablet (Eliquis) 5 mg PO BID #60 tabs 03/08/25 04/10/25 famotidine 20 mg tablet 20 mg PO BID #30 tabs 03/15/25 04/10/25 ondansetron 4 mg disintegrating 4 mg PO Q8H PRN #20 tabs 03/15/25 04/10/25 tablet sucralfate 1 gram tablet 1 g PO QACHS #90 tabs 03/15/25 04/10/25 prochlorperazine maleate 10 mg 10 mg PO Q6H PRN #10 tabs 03/16/25 04/10/25 tablet (Compazine) folic acid 1 mg tablet 1 mg PO DAILY #30 tabs 03/17/25 04/10/25 lorazepam 1 mg tablet (Ativan) 1 mg PO DAILY PRN #4 tabs 03/29/25 04/10/25 clonazepam 1 mg tablet 1 mg PO BID #10 tabs 04/03/25 04/10/25 Previous Rx's ?Medication ?Instructions ?Recorded prochlorperazine maleate 5 mg 5 mg PO TID PRN acute nausea #30 09/06/23 tablet tabs gabapentin 300 mg capsule 300 mg PO BID #180 caps 06/01/24 calcitriol 0.5 mcg capsule 1 mcg (2 x 0.5 mcg) PO .COMPLEX 06/29/24 #270 caps omeprazole 40 mg capsule,delayed 40 mg PO DAILY #90 caps 07/27/24 release lorazepam 1 mg tablet 1 mg PO DAILY PRN anxiety #10 tabs 10/19/24 cyclobenzaprine 10 mg tablet 10 mg PO TID PRN muscle spasm #30 11/16/24 tabs diclofenac sodium 1 % topical gel 2 g topical QID #50 grams 02/03/25 apixaban 5 mg tablet (Eliquis) 5 mg PO BID #60 tabs 03/08/25 famotidine 20 mg tablet 20 mg PO BID #30 tabs 03/15/25 ondansetron 4 mg disintegrating 4 mg PO Q8H PRN #20 tabs 03/15/25 tablet sucralfate 1 gram tablet 1 g PO QACHS #90 tabs 03/15/25 prochlorperazine maleate 10 mg 10 mg PO Q6H PRN #10 tabs 03/16/25 tablet (Compazine) folic acid 1 mg tablet 1 mg PO DAILY #30 tabs 03/17/25 lorazepam 1 mg tablet (Ativan) 1 mg PO DAILY PRN #4 tabs 03/29/25 clonazepam 1 mg tablet 1 mg PO BID #10 tabs 04/03/25 Allergies Allergy/AdvReac Type Severity Reaction Status Date / Time Penicillins Allergy Skin Rash Verified 04/10/25 15:39 marijuana (cannabis) AdvReac Severe Paranoia Verified 04/10/25 15:39 amoxicillin AdvReac Intermediate Nausea Verified 04/10/25 15:39 codeine AdvReac Intermediate pass out Verified 04/10/25 15:39 dextromethorphan (From AdvReac Intermediate got Verified 04/10/25 15:39 NyQuil) really hot and sweaty doxylamine (From NyQuil) AdvReac Intermediate got Verified 04/10/25 15:39 really hot and sweaty pseudoephedrine (From NyQuil) AdvReac Intermediate got Verified 04/10/25 15:39 really hot and sweaty General Stated Complaint: Chest Pain ADRIANA: 3 Exam Narrative Exam Narrative: Gen: Awake and alert, in no apparent distress HEENT: Non-icteric sclera Neck: Supple Lungs: No apparent respiratory distress, normal respiratory effort. Lung sounds clear and equal bilaterally CV: Appears well perfused, heart with regular rate and rhythm at this time, strong distal pulses, no murmurs auscultated Abdomen: Non-distended, soft MSK: Moves 4 extremities without apparent limitation in ROM, no peripheral edema Skin: Visualized skin without rashes, cyanosis. Neuro: Normal Gait, no obvious focal deficits or facial asymmetry. Speaks in full, clear sentences. Psych: Appropriate for situation. Course Vital Signs Vital signs: Vital Signs Temperature 36.8 C 04/10/25 15:35 Pulse 110 H 04/10/25 15:35 Respiratory Rate 18 04/10/25 15:35 Blood Pressure 137/77 04/10/25 15:35 Pulse Oximetry 93 04/10/25 15:35 Temperature 36.8 C 04/10/25 15:35 Temperature Source Oral 04/10/25 15:35 Pulse 110 H 04/10/25 15:35 Respiratory Rate 18 04/10/25 15:35 Blood Pressure 137/77 04/10/25 15:35 Blood Pressure Position Sitting 04/10/25 15:35 Pulse Oximetry 93 04/10/25 15:35 Oxygen Delivery Method Room Air 04/10/25 15:35 Oxygen Flow Rate 0 04/10/25 15:35 Pain Level 4 04/10/25 15:35 Medical Decision Making This is a 29-year-old male patient presenting for evaluation of fast heart rate, skin changes and numbness/tingling to his hands, and chest heaviness. I differential includes but is not limited to orthostasis, near syncope, certainly considered arrhythmia, ACS, metabolic electrolyte derangements, dehydration, kidney injury. The patient's symptoms are most concerning to me for orthostasis, likely due to GI losses in the setting of multiple liquid stools while taking polyethylene glycol. I obtained an EKG which shows a sinus tachycardia with no evidence of ischemia, interval abnormality, or ectopy. It is unchanged when compared to priors. The patient has not missed any doses of Eliquis to increase my concern for pulmonary embolism and I do not see an indication at this time to proceed with advanced imaging. We will however obtain labs to include CBC, CMP, magnesium, troponin, and provide the patient with a liter of IV fluids. - I reviewed the patient's laboratory studies, which show no leukocytosis, stable anemia and no thrombocytopenia. Of note, all 3 cell lines are slightly increased from where they were today, which may be agricultural sales representative of hemoconcentration. The chemistry panel shows no significant electrolyte derangements, evidence of new kidney dysfunction or liver injury. Troponin is undetectable. In the absence of active chest pain or ischemic changes I do not feel that this patient requires delta troponins at this time. The patient did have some improvement in his symptoms after IV fluids and his heart rate has improved significantly. He was counseled to increase his hydration at home with water and sports drinks, and use slow transitions when sitting to standing. He will hold on further doses of his polyethylene glycol and may need to titrate this medication to prevent excessive fluid losses through diarrhea. At this time, the patient has had a full medical evaluation and is safe for discharge to home. They are hemodynamically stable, ambulatory, and tolerating PO. They are understanding of the follow-up plan and return precautions. They left our facility without incident. Tere Adams MD Quality:SDOH Health Related Social Needs: Health related social needs lonely/isolated Health related social needs details patient here frequently due to anxiety. PFSH All Active Problems (Updated 04/10/25 @ 19:49 by Tere Adams MD) Orthostasis (Acute) Anemia (Chronic) Atypical chest pain (Acute) Atypical chest pain (Acute) Panic attack (Acute) Abdominal pain (Acute) Normocytic anemia (Acute) Coughing up blood (Acute) Renal cyst (Acute) Back pain (Acute) Heart palpitations (Acute) Headache (Acute) Hyperhomocysteinemia (Acute) Abdominal pain, epigastric (Acute) Chest pain, unspecified (Acute) Abdominal pain (Acute) Pulmonary infiltrates (Acute) Snoring (Acute) Pleural effusion (Acute) Rt groin pain (Acute) Rash (Acute) Shortness of breath (Acute) Edema, peripheral (Acute) Anxiety (Chronic) Chest discomfort (Acute) Pulmonary embolism and infarction (Acute) Left pulmonary infiltrate on CXR (Acute) Bilateral pulmonary embolism (Acute) Tenderness of neck (Acute) Right elbow pain (Acute) Acute leg pain (Acute) Bronchitis (Acute) Well adult health check (Acute) Obstructive sleep apnea (Chronic) Metabolic dysfunction-associated fatty liver disease (MAFLD) (Acute) Fatty liver (Acute) IBS (irritable bowel syndrome) (Chronic) Obesity (Chronic) Migraine with aura (Acute) Testicle lump (Acute) Pes anserine bursitis (Acute) Left-sided Flower's palsy (Acute) Opiate dependence, continuous (Acute) 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 Possible 2' Methadone, Clnzpm (?). Surg eval (+)/No further action. History of electrolyte imbalance (Acute) Neck pain on left side (Acute) with shoulder, upper back pain.. torticollis, radiating into left hip/leg Pulmonary nodule 1 cm or greater in diameter (Chronic) Therapeutic opioid induced constipation (Acute) Sphincter of Oddi dysfunction (Chronic) Abnormal CT scan, kidney (Acute) Intrahepatic bile duct dilation (Acute) Common bile duct dilatation (Chronic) Has been dilated for quite some time, now more-so. Normal LFTs. Known gallstones. Depression (Chronic) Elevated parathyroid hormone (Acute) Family history of coronary arteriosclerosis (Chronic) Father of NM at 50, mother had NM at 42 Severe anxiety with panic (Chronic) Medical History Multiple endocrine neoplasia type I CKD (chronic kidney disease) stage 2, GFR 60-89 ml/min GFR 64-65, with Hx FLORESITA and GFR < 45 Primary hyperparathyroidism Complex medical condition Serious electrolyte imbalances, with gynecomastia, possible MEN Dx, CKD and anemia with baseline anxiety and Hx PTSD. Hypocalcemia Anxiety Depression Hyperlipidemia Family history of multiple endocrine neoplasia, type 1 PTSD (post-traumatic stress disorder) Per pt. states no triggers at this time. Surgical History History of laparoscopic cholecystectomy (~11/2023) H/O parathyroidectomy Family History Mother Anxiety Asthma Depression Sister Anxiety Depression Father Cancer lung & stomach Depression Diabetes Hypertension MEN 1 (multiple endocrine neoplasia) Social History Smoking/Tobacco Use Status: Never Smoking risk assessment performed?: Yes Alcohol Intake: never Drug use: Current Sobriety Substance use type: former substance user, crack/cocaine, heroin and painkillers Details: stopped using substances for the past 4 years Adopted: No Caregiver/Support person: No Foster care: No Household members: none Housing: apartment Number of Children: 0 Communication Needs: None Education Level: high school Do you need help understanding health information?: Never current occupation: [employer] Pets and animals: Yes (Ally) Pets and animals: dog(s) Sexually active: No Do you think of yourself as: straight/heterosexual Current gender identity: male What is your relationship status?: How often do you talk on the phone with friends or family?: twice per week How often do you get together with friends or relatives?: never Do you belong to any clubs or organized social groups?: no Panel score (0-1 are the most socially isolated patients): 0 What type of physical activity do you participate in: walking Duration: 15-30 minutes/day Frequency: 5-6 times per week Maryam/Sikh: Scientology Special maryam needs: No Seatbelt use: always Helmet use: Yes Helmet use: always Drive intox or ride w/intox speedboat driver: No Do you feel safe at home: Yes Do you feel safe in your relationship?: Yes
[2025-04-10 17:46] LABS: Abs Immature Grans 0.03 10^3/uL (0.0-0.06); HCT 32.1 % (40.0-50.0); HGB 9.7 g/dL (13.5-17.5); Immature Grans % 0.3 %; MCH 24.4 pg (27.0-33.0); MCHC 30.2 % (32.0-36.0); MCV 81 fL (80-95); MPV 9.7 fL (8.0-11.0); Platelet Count 422 10^3/uL (130-400); RBC 3.98 10^6/uL (4.36-5.78); RDW 16.2 % (11.8-14.1); RDW-SD 47.9 fL; WBC 9.88 10^3/uL (4.4-10.8)
[2025-04-10 18:04] LABS: ALT 38 U/L (16-63); AST 24 U/L (15-37); Albumin 3.6 g/dL (3.4-5.0); Alkaline Phosphatase 145 U/L (46-116); Anion Gap 8.9 mmol/L (3-11); BUN 13 mg/dL (7-18); Bilirubin, Total 0.2 mg/dL (0.2-1.0); CO2 32.1 mmol/L (21.0-32.0); Calcium 8.6 mg/dL (8.5-10.1); Chloride 98 mmol/L (98-107); Estimated GFR 63.44 (mL/min/1.73m2); Glucose 116 mg/dL (74-106); Magnesium 1.9 mg/dL (1.8-2.4); Potassium 4.0 mmol/L (3.5-5.1); Sodium 139 mmol/L (136-145); Total Protein 8.7 g/dL (6.4-8.2)
[2025-04-10] MEDS: Lactated Ringers 1,000 ML 1000 ML IV (18:04)
[2025-04-10 18:06] LABS: Troponin I < 4 ng/L (<or=76)
--- NOTE | 2025-04-12 13:01 | NUR.NOTE ---
Nursing Note: received call from [facility] Emergency department that patient was in their ED and requesting a recent EKG. EKG faxed to [phone]
== END 2025-04-10 20:00 | disposition home or self-care (01) ==
PROVIDERS: Emergency Provider Emergency Medicine; PCP Physician Assistant
DX: I95.1 Orthostatic hypotension (principal); N18.2 Chronic kidney disease, stage 2 (mild); E78.5 Hyperlipidemia, unspecified; E89.2 Postprocedural hypoparathyroidism; Z86.718 Personal history of other venous thrombosis and embolism; Z79.01 Long term (current) use of anticoagulants
CPT/HCPCS: 80053; 93005; 99283; 83735; 84484; 85025; 93010

== ENCOUNTER 2025-04-12 08:15 | Emergency (ER) | payer MEDICAID, SELFPAY ==
[2025-04-12 08:18] VITALS: BP 147/77; PULSE 112; RESP 18; TEMP 37.3; O2SAT 97
--- NOTE | 2025-04-12 08:25 | W.ED.GENAD ---
Discharge Plan Disposition Patient Disposition: Home Condition: Stable Discharge Details Clinical Impression: Encounter for medication refill Primary Care Provider: Sanjana Pritchett ED Provider: Richy Oakes Home Meds and New Rx's Prescriptions: New calcitriol 0.5 mcg capsule See Rx Instructions .ROUTE .COMPLEX Qty: 21 0RF Rx Instructions: take 2 capsules by mouth qAM and 1 tab qHS per day Continued gabapentin 300 mg capsule 300 mg PO BID Qty: 180 3RF omeprazole 40 mg capsule,delayed release(DR/EC) 40 mg PO DAILY Qty: 90 3RF lorazepam 1 mg tablet 1 mg PO DAILY PRN (Reason: anxiety) Qty: 10 0RF Rx Instructions: Use when considering ER visit cyclobenzaprine 10 mg tablet 10 mg PO TID PRN (Reason: muscle spasm) Qty: 30 3RF Eliquis 5 mg tablet 5 mg PO BID Qty: 60 6RF methadone 10 mg/5 mL solution 100 mg PO QAM calcitriol 0.5 mcg capsule 1 mcg PO .COMPLEX Qty: 270 3RF Rx Instructions: 1 mcg orally t2 tabs qam and 1 tab QHS; folic acid 1 mg tablet 1 mg PO DAILY Qty: 30 6RF calcium carbonate [Tums] 200 mg calcium (500 mg) tablet,chewable 2,000 mg PO BID prochlorperazine maleate 5 mg tablet 5 mg PO TID PRN (Reason: acute nausea) Qty: 30 0RF polyethylene glycol 3350 17 gram powder in packet 17 g PO BID PRN magnesium gluconate 27 mg magnesium (500 mg) tablet 500 mg PO BID Rx Instructions: takes 500mg QAM and 1000mg QHS diclofenac sodium 1 % gel 2 g topical QID Qty: 50 0RF Rx Instructions: apply to single elbow, wrist or hand; for hand includes palm/fingers/back of hand famotidine 20 mg tablet 20 mg PO BID Qty: 30 0RF sucralfate 1 gram tablet 1 g PO QACHS Qty: 90 0RF ondansetron 4 mg tablet,disintegrating 4 mg PO Q8H PRNQty: 20 0RF clonazepam 1 mg tablet 1 mg PO BID Qty: 10 0RF prochlorperazine maleate [Compazine] 10 mg tablet 10 mg PO Q6H PRNQty: 10 0RF lorazepam [Ativan] 1 mg tablet 1 mg PO DAILY PRNQty: 4 0RF Discharge Instructions Instructions: Calcitriol (Systemic) Additional Instructions: You were seen in the emergency department for your need for medication refill of calcitriol, we have sent a weeks supply to [facility] in [place], please return for any emergent conditions. Referrals: Sanjana Pritchett [Primary Care Provider, Medicine] Discharge Data Discharge Date/Time-TO BE ENTERED AT DEPARTURE: 04/12/25 08:42 HPI General Date/Time Provider Initiated Documentation: 04/12/25 08:24. HPI Narrative: 29 year-old male presents to ED today by POV/ambulating with a chief complaint of request for medication refill- due to gov't shutdown [facility] or is in processing, of calcitriol, which he needs due to his parathyroidectomy. Quality described as no physical complaints- just worried about his calcium if he does not receive his regular meds, no radiation to chest pain, tremor, shortness of breath, abdominal pain, nausea/vomiting. Severity is described as 0/10. Palliating factors include nothing specific. Provoking factors include nothing specific. Patient is anticoagulated. Related Data Home Medications ?Medication ?Instructions ?Recorded ?Confirmed calcium carbonate (Tums) 2,000 mg PO BID 02/02/23 04/14/25 methadone 10 mg/5 mL oral solution 100 mg PO QAM 06/12/23 04/14/25 prochlorperazine maleate 5 mg 5 mg PO TID PRN acute nausea #30 09/06/23 04/14/25 tablet tabs gabapentin 300 mg capsule 300 mg PO BID #180 caps 06/01/24 04/14/25 calcitriol 0.5 mcg capsule 1 mcg (2 x 0.5 mcg) PO .COMPLEX 06/29/24 04/14/25 #270 caps omeprazole 40 mg capsule,delayed 40 mg PO DAILY #90 caps 07/27/24 04/14/25 release polyethylene glycol 3350 17 gram 17 g PO BID PRN 10/15/24 04/14/25 oral powder packet Held on 04/14/25. Instructions: Resume on 04/21/25. hold until diarrhea stops or you develop constipation lorazepam 1 mg tablet 1 mg PO DAILY PRN anxiety #10 tabs 10/19/24 04/14/25 cyclobenzaprine 10 mg tablet 10 mg PO TID PRN muscle spasm #30 11/16/24 04/14/25 tabs magnesium gluconate 27 mg 500 mg PO BID 01/30/25 04/14/25 magnesium (500 mg) tablet diclofenac sodium 1 % topical gel 2 g topical QID #50 grams 02/03/25 04/14/25 apixaban 5 mg tablet (Eliquis) 5 mg PO BID #60 tabs 03/08/25 04/14/25 famotidine 20 mg tablet 20 mg PO BID #30 tabs 03/15/25 04/14/25 ondansetron 4 mg disintegrating 4 mg PO Q8H PRN #20 tabs 03/15/25 04/14/25 tablet sucralfate 1 gram tablet 1 g PO QACHS #90 tabs 03/15/25 04/14/25 prochlorperazine maleate 10 mg 10 mg PO Q6H PRN #10 tabs 03/16/25 04/14/25 tablet (Compazine) folic acid 1 mg tablet 1 mg PO DAILY #30 tabs 03/17/25 04/14/25 lorazepam 1 mg tablet (Ativan) 1 mg PO DAILY PRN #4 tabs 03/29/25 04/14/25 clonazepam 1 mg tablet 1 mg PO BID #10 tabs 04/03/25 04/14/25 calcitriol 0.5 mcg capsule See Rx Instructions .Route 04/12/25 04/14/25 .COMPLEX #21 caps Previous Rx's ?Medication ?Instructions ?Recorded prochlorperazine maleate 5 mg 5 mg PO TID PRN acute nausea #30 09/06/23 tablet tabs gabapentin 300 mg capsule 300 mg PO BID #180 caps 06/01/24 calcitriol 0.5 mcg capsule 1 mcg (2 x 0.5 mcg) PO .COMPLEX 06/29/24 #270 caps omeprazole 40 mg capsule,delayed 40 mg PO DAILY #90 caps 07/27/24 release lorazepam 1 mg tablet 1 mg PO DAILY PRN anxiety #10 tabs 10/19/24 cyclobenzaprine 10 mg tablet 10 mg PO TID PRN muscle spasm #30 11/16/24 tabs diclofenac sodium 1 % topical gel 2 g topical QID #50 grams 02/03/25 apixaban 5 mg tablet (Eliquis) 5 mg PO BID #60 tabs 03/08/25 famotidine 20 mg tablet 20 mg PO BID #30 tabs 03/15/25 ondansetron 4 mg disintegrating 4 mg PO Q8H PRN #20 tabs 03/15/25 tablet sucralfate 1 gram tablet 1 g PO QACHS #90 tabs 03/15/25 prochlorperazine maleate 10 mg 10 mg PO Q6H PRN #10 tabs 03/16/25 tablet (Compazine) folic acid 1 mg tablet 1 mg PO DAILY #30 tabs 03/17/25 lorazepam 1 mg tablet (Ativan) 1 mg PO DAILY PRN #4 tabs 03/29/25 clonazepam 1 mg tablet 1 mg PO BID #10 tabs 04/03/25 calcitriol 0.5 mcg capsule See Rx Instructions .Route 04/12/25 .COMPLEX #21 caps Allergies Allergy/AdvReac Type Severity Reaction Status Date / Time Penicillins Allergy Skin Rash Verified 04/14/25 14:02 marijuana (cannabis) AdvReac Severe Paranoia Verified 04/14/25 14:02 amoxicillin AdvReac Intermediate Nausea Verified 04/14/25 14:02 codeine AdvReac Intermediate pass out Verified 04/14/25 14:02 dextromethorphan (From AdvReac Intermediate got Verified 04/14/25 14:02 NyQuil) really hot and sweaty doxylamine (From NyQuil) AdvReac Intermediate got Verified 04/14/25 14:02 really hot and sweaty pseudoephedrine (From NyQuil) AdvReac Intermediate got Verified 04/14/25 14:02 really hot and sweaty General Stated Complaint: RX Refill ADRIANA: 5 Review of Systems All systems reviewed & are unremarkable except as noted in HPI and below Exam Narrative Exam Narrative: GENERAL APPEARANCE: Well-nourished, non-toxic, awake and alert, atraumatic, no acute distress. SKIN: Warm, pink, dry, intact, without rashes/lesions/ulcerations. HEAD: Normocephalic, atraumatic, normal hair distribution for gender/age. EYES: Normal conjunctiva, no exudates on lids/lashes. ENT: Nares patent, no circumoral cyanosis, no facial swelling NECK: Supple, trachea midline, painless cervical ROM. LUNGS/CHEST: Non-labored respirations, normal A/P diameter, symmetrical expansion, no chest wall deformity HEART (CV/PV): No peripheral edema, no JVD. ABDOMEN: Soft, non-distended, no guarding. MSK: Normal ROM, no swelling/deformity to bilateral UEs or LEs, moving all extremities without weakness, no cyanosis, spine midline without tenderness, normal curvature. NEURO: Mental Status AAOx4 - alert to person, place, time, events No facial droop, no forehead involvement. Motor: No focal weakness - strength 5/5 in bilateral UEs and LEs, proximal and distal, symmetric. Sensory: sensation intact to light touch globally. Gait normal: patient ambulated without ataxia into ED room. PSYCH: euthymic, cooperative, pleasant, appropriate speech Course Vital Signs Vital signs: Vital Signs Temperature 37.3 C 04/12/25 08:18 Pulse 112 H 04/12/25 08:18 Respiratory Rate 18 04/12/25 08:18 Blood Pressure 147/77 H 04/12/25 08:18 Pulse Oximetry 97 04/12/25 08:18 Temperature 37.3 C 04/12/25 08:18 Temperature Source Tympanic 04/12/25 08:18 Pulse 112 H 04/12/25 08:18 Respiratory Rate 18 04/12/25 08:18 Blood Pressure 147/77 H 04/12/25 08:18 Blood Pressure Position Sitting 04/12/25 08:18 Pulse Oximetry 97 04/12/25 08:18 Oxygen Delivery Method Room Air 04/12/25 08:18 Oxygen Flow Rate 0 04/12/25 08:18 Pain Level 0 04/12/25 08:18 Medical Decision Making This dictation utilizes [id number] dictation software and may contain unedited grammatical errors. 29 year-old male presents to ED today by POV/ambulating with a chief complaint of request for medication refill- due to gov't shutdown he [facility]- [facility] it has been [facility] or is in processing, of calcitriol, which he needs due to his parathyroidectomy. Quality described as no physical complaints- just worried about his calcium if he does not receive his regular meds, no radiation to chest pain, tremor, shortness of breath, abdominal pain, nausea/vomiting. Severity is described as 0/10. Palliating factors include nothing specific. Provoking factors include nothing specific. Patients' medical history: PE, parathyroidectomy, CKD, hyperlipidemia, high health anxiety, sphincter of Oddi dysfunction, IBS. Family and social history: Noncontributory. Pertinent exam findings / vital signs include benign respiratory status, stable vitals she is normally tachycardic on many prior visits, neuro intact, afebrile. Differential / pathologies of concern include request for medication refill. Diagnostic studies of: - None. Interventions of: - Rx for his calcitriol- 7 day supply. ED Course/Assessment/Plan: 29-year-old male requests refill of calcitriol as he needs this medication due to parathyroidectomy, he has not received his medications due to a government shutdown and [facility], is happy to provide a 7-day course, he has no other physical complaints I stressed return criteria for any emergent concerns. Findings not consistent with physical complaint. Disposition of request for medication refill. Patient verbalized understanding of the plan and return to ED criteria and engaged in shared decision making. Medical Records Medical records reviewed: Yes I reviewed the patient's medical records. Quality:SDOH Health Related Social Needs: Health related social needs lonely/isolated Health related social needs details patient here frequently due to anxiety. PFSH All Active Problems (Updated 04/16/25 @ 00:01 by HAMMAD WILEY) Diarrhea (Acute) Weakness (Acute) Encounter for medication refill (Acute) Orthostasis (Acute) Anemia (Chronic) Atypical chest pain (Acute) Atypical chest pain (Acute) Panic attack (Acute) Abdominal pain (Acute) Normocytic anemia (Acute) Coughing up blood (Acute) Renal cyst (Acute) Back pain (Acute) Heart palpitations (Acute) Headache (Acute) Hyperhomocysteinemia (Acute) Pulmonary infiltrates (Acute) Snoring (Acute) Pleural effusion (Acute) Rt groin pain (Acute) Rash (Acute) Shortness of breath (Acute) Edema, peripheral (Acute) Anxiety (Chronic) Chest discomfort (Acute) Pulmonary embolism and infarction (Acute) Left pulmonary infiltrate on CXR (Acute) Bilateral pulmonary embolism (Acute) Tenderness of neck (Acute) Right elbow pain (Acute) Acute leg pain (Acute) Bronchitis (Acute) Well adult health check (Acute) Obstructive sleep apnea (Chronic) Metabolic dysfunction-associated fatty liver disease (MAFLD) (Acute) Fatty liver (Acute) IBS (irritable bowel syndrome) (Chronic) Obesity (Chronic) Migraine with aura (Acute) Testicle lump (Acute) Pes anserine bursitis (Acute) Left-sided Flower's palsy (Acute) Opiate dependence, continuous (Acute) 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 Possible 2' Methadone, Clnzpm (?). Surg eval (+)/No further action. History of electrolyte imbalance (Acute) Neck pain on left side (Acute) with shoulder, upper back pain.. torticollis, radiating into left hip/leg Pulmonary nodule 1 cm or greater in diameter (Chronic) Therapeutic opioid induced constipation (Acute) Sphincter of Oddi dysfunction (Chronic) Abnormal CT scan, kidney (Acute) Intrahepatic bile duct dilation (Acute) Common bile duct dilatation (Chronic) Has been dilated for quite some time, now more-so. Normal LFTs. Known gallstones. Depression (Chronic) Elevated parathyroid hormone (Acute) Family history of coronary arteriosclerosis (Chronic) Father of GA at 50, mother had GA at 42 Severe anxiety with panic (Chronic) Medical History Multiple endocrine neoplasia type I CKD (chronic kidney disease) stage 2, GFR 60-89 ml/min GFR 64-65, with Hx FLORESITA and GFR < 45 Primary hyperparathyroidism Complex medical condition Serious electrolyte imbalances, with gynecomastia, possible MEN Dx, CKD and anemia with baseline anxiety and Hx PTSD. Hypocalcemia Anxiety Depression Hyperlipidemia Family history of multiple endocrine neoplasia, type 1 PTSD (post-traumatic stress disorder) Per pt. states no triggers at this time. Surgical History History of laparoscopic cholecystectomy (~11/2023) H/O parathyroidectomy Family History Mother Anxiety Asthma Depression Sister Anxiety Depression Father Cancer lung & stomach Depression Diabetes Hypertension MEN 1 (multiple endocrine neoplasia) Social History Smoking/Tobacco Use Status: Never Smoking risk assessment performed?: Yes Alcohol Intake: never Drug use: Current Sobriety Substance use type: former substance user, crack/cocaine, heroin and painkillers Details: stopped using substances for the past 4 years Adopted: No Caregiver/Support person: No Foster care: No Household members: none Housing: apartment Number of Children: 0 Communication Needs: None Education Level: high school Do you need help understanding health information?: Never current occupation: [employer] Pets and animals: Yes (Ally) Pets and animals: dog(s) Sexually active: No Do you think of yourself as: straight/heterosexual Current gender identity: male What is your relationship status?: How often do you talk on the phone with friends or family?: twice per week How often do you get together with friends or relatives?: never Do you belong to any clubs or organized social groups?: no Panel score (0-1 are the most socially isolated patients): 0 What type of physical activity do you participate in: walking Duration: 15-30 minutes/day Frequency: 5-6 times per week Maryam/Jew: [employer] Special maryam needs: No Seatbelt use: always Helmet use: Yes Helmet use: always Drive intox or ride w/intox marine engine driver: No Do you feel safe at home: Yes Do you feel safe in your relationship?: Yes
[2025-04-12] MEDS: LORazepam 1 MG TAB 4 MG PO (08:40)
== END 2025-04-12 08:42 | disposition home or self-care (01) ==
PROVIDERS: Emergency Provider Physician Assistant; PCP Physician Assistant
DX: R19.7 Diarrhea, unspecified (principal); N18.2 Chronic kidney disease, stage 2 (mild); E78.5 Hyperlipidemia, unspecified; E89.2 Postprocedural hypoparathyroidism; Z86.718 Personal history of other venous thrombosis and embolism; Z79.01 Long term (current) use of anticoagulants
CPT/HCPCS: 99283

== ENCOUNTER 2025-04-13 07:44 | Emergency (ER) | payer OTHER, SELFPAY ==
[2025-04-13] VITALS (9 sets, daily range): BP systolic 124–132; BP diastolic 52–79; PULSE 64–113; RESP 18; TEMP 36.9; O2SAT 94–99
--- NOTE | 2025-04-13 07:56 | W.ED.GENAD ---
Discharge Plan Disposition Patient Disposition: Home Condition: Good Discharge Details Clinical Impression: Weakness Primary Care Provider: Sanjana Pritchett ED Provider: Steph Jones [place] Meds and New Rx's Prescriptions: Continued gabapentin 300 mg capsule 300 mg PO BID Qty: 180 3RF omeprazole 40 mg capsule,delayed release(DR/EC) 40 mg PO DAILY Qty: 90 3RF lorazepam 1 mg tablet 1 mg PO DAILY PRN (Reason: anxiety) Qty: 10 0RF Rx Instructions: Use when considering ER visit cyclobenzaprine 10 mg tablet 10 mg PO TID PRN (Reason: muscle spasm) Qty: 30 3RF Eliquis 5 mg tablet 5 mg PO BID Qty: 60 6RF methadone 10 mg/5 mL solution 100 mg PO QAM calcitriol 0.5 mcg capsule 1 mcg PO .COMPLEX Qty: 270 3RF Rx Instructions: 1 mcg orally t2 tabs qam and 1 tab QHS; folic acid 1 mg tablet 1 mg PO DAILY Qty: 30 6RF calcium carbonate [Tums] 200 mg calcium (500 mg) tablet,chewable 2,000 mg PO BID prochlorperazine maleate 5 mg tablet 5 mg PO TID PRN (Reason: acute nausea) Qty: 30 0RF polyethylene glycol 3350 17 gram powder in packet 17 g PO BID PRN magnesium gluconate 27 mg magnesium (500 mg) tablet 500 mg PO BID Rx Instructions: takes 500mg QAM and 1000mg QHS diclofenac sodium 1 % gel 2 g topical QID Qty: 50 0RF Rx Instructions: apply to single elbow, wrist or hand; for hand includes palm/fingers/back of hand famotidine 20 mg tablet 20 mg PO BID Qty: 30 0RF sucralfate 1 gram tablet 1 g PO QACHS Qty: 90 0RF ondansetron 4 mg tablet,disintegrating 4 mg PO Q8H PRNQty: 20 0RF clonazepam 1 mg tablet 1 mg PO BID Qty: 10 0RF calcitriol 0.5 mcg capsule See Rx Instructions .ROUTE .COMPLEX Qty: 21 0RF Rx Instructions: take 2 capsules by mouth qAM and 1 tab qHS per day prochlorperazine maleate [Compazine] 10 mg tablet 10 mg PO Q6H PRNQty: 10 0RF lorazepam [Ativan] 1 mg tablet 1 mg PO DAILY PRNQty: 4 0RF Discharge Instructions Instructions: Weakness ED Additional Instructions: As we discussed, your labs and imaging are very reassuring here today. No evidence to suggest stroke. Your electrolytes were all normal. Your kidney function is actually improved and your anemia has not changed. Please continue to monitor your symptoms and discuss further with your primary care at your upcoming appointment on Friday. Please keep this appointment to make sure that you are able to have close follow-up. If you develop any new or worsening symptoms please seek care urgently once again. Please try to continue being active but avoid activities that could increase your risk of fall while you are still feeling tired and weak. Referrals: Sanjana Pritchett [Primary Care Provider, Medicine] Discharge Data Discharge Date/Time-TO BE ENTERED AT DEPARTURE: 04/13/25 10:51 HPI General Date/Time Provider Initiated Documentation: 04/13/25 07:56. Limitations to Documentation: no limitations. Information obtained by: patient, RN notes reviewed and old records reviewed. History of Present Illness 29 year old M presents to the emergency department with the chief complaint of left sided weakness, described as moderate and similar to prior episodes, Quality is described as other (no pain with this, more of a weak feeling), and is localized to the face, left, upper extremity and lower extremity. Patient started experiencing this week(s) (1) and it has been constant (progressively getting worse). No relieving factors improve symptom(s), Movement worsens symptoms . Patient notes no other symptoms. and weakness; denies confusion, chest pain, cough, fever/chills, loss of appetite, nausea/vomiting, rash and shortness of breath. Patient did receive the following treatments prior to arrival, none Related Data Home Medications Medication Instructions Recorded Confirmed calcium carbonate (Tums) 2,000 mg PO BID 02/02/23 04/12/25 methadone 10 mg/5 mL oral solution 100 mg PO QAM 06/12/23 04/12/25 prochlorperazine maleate 5 mg 5 mg PO TID PRN acute nausea #30 09/06/23 04/12/25 tablet tabs gabapentin 300 mg capsule 300 mg PO BID #180 caps 06/01/24 04/12/25 calcitriol 0.5 mcg capsule 1 mcg (2 x 0.5 mcg) PO .COMPLEX 06/29/24 04/12/25 #270 caps omeprazole 40 mg capsule,delayed 40 mg PO DAILY #90 caps 07/27/24 04/12/25 release polyethylene glycol 3350 17 gram 17 g PO BID PRN 10/15/24 04/12/25 oral powder packet lorazepam 1 mg tablet 1 mg PO DAILY PRN anxiety #10 tabs 10/19/24 04/12/25 cyclobenzaprine 10 mg tablet 10 mg PO TID PRN muscle spasm #30 11/16/24 04/12/25 tabs magnesium gluconate 27 mg 500 mg PO BID 01/30/25 04/12/25 magnesium (500 mg) tablet diclofenac sodium 1 % topical gel 2 g topical QID #50 grams 02/03/25 04/12/25 apixaban 5 mg tablet (Eliquis) 5 mg PO BID #60 tabs 03/08/25 04/12/25 famotidine 20 mg tablet 20 mg PO BID #30 tabs 03/15/25 04/12/25 ondansetron 4 mg disintegrating 4 mg PO Q8H PRN #20 tabs 03/15/25 04/12/25 tablet sucralfate 1 gram tablet 1 g PO QACHS #90 tabs 03/15/25 04/12/25 prochlorperazine maleate 10 mg 10 mg PO Q6H PRN #10 tabs 03/16/25 04/12/25 tablet (Compazine) folic acid 1 mg tablet 1 mg PO DAILY #30 tabs 03/17/25 04/12/25 lorazepam 1 mg tablet (Ativan) 1 mg PO DAILY PRN #4 tabs 03/29/25 04/12/25 clonazepam 1 mg tablet 1 mg PO BID #10 tabs 04/03/25 04/12/25 calcitriol 0.5 mcg capsule See Rx Instructions .Route 04/12/25 .COMPLEX #21 caps Previous Rx's Medication Instructions Recorded prochlorperazine maleate 5 mg 5 mg PO TID PRN acute nausea #30 09/06/23 tablet tabs gabapentin 300 mg capsule 300 mg PO BID #180 caps 06/01/24 calcitriol 0.5 mcg capsule 1 mcg (2 x 0.5 mcg) PO .COMPLEX 06/29/24 #270 caps omeprazole 40 mg capsule,delayed 40 mg PO DAILY #90 caps 07/27/24 release lorazepam 1 mg tablet 1 mg PO DAILY PRN anxiety #10 tabs 10/19/24 cyclobenzaprine 10 mg tablet 10 mg PO TID PRN muscle spasm #30 11/16/24 tabs diclofenac sodium 1 % topical gel 2 g topical QID #50 grams 02/03/25 apixaban 5 mg tablet (Eliquis) 5 mg PO BID #60 tabs 03/08/25 famotidine 20 mg tablet 20 mg PO BID #30 tabs 03/15/25 ondansetron 4 mg disintegrating 4 mg PO Q8H PRN #20 tabs 03/15/25 tablet sucralfate 1 gram tablet 1 g PO QACHS #90 tabs 03/15/25 prochlorperazine maleate 10 mg 10 mg PO Q6H PRN #10 tabs 03/16/25 tablet (Compazine) folic acid 1 mg tablet 1 mg PO DAILY #30 tabs 03/17/25 lorazepam 1 mg tablet (Ativan) 1 mg PO DAILY PRN #4 tabs 03/29/25 clonazepam 1 mg tablet 1 mg PO BID #10 tabs 04/03/25 calcitriol 0.5 mcg capsule See Rx Instructions .Route 04/12/25 .COMPLEX #21 caps Allergies Allergy/AdvReac Type Severity Reaction Status Date / Time Penicillins Allergy Skin Rash Verified 04/12/25 08:21 marijuana (cannabis) AdvReac Severe Paranoia Verified 04/12/25 08:21 amoxicillin AdvReac Intermediate Nausea Verified 04/12/25 08:21 codeine AdvReac Intermediate pass out Verified 04/12/25 08:21 dextromethorphan (From AdvReac Intermediate got Verified 04/12/25 08:21 NyQuil) really hot and sweaty doxylamine (From NyQuil) AdvReac Intermediate got Verified 04/12/25 08:21 really hot and sweaty pseudoephedrine (From NyQuil) AdvReac Intermediate got Verified 04/12/25 08:21 really hot and sweaty General Stated Complaint: GenMedical ADRIANA: 3 Review of Systems Constitutional Constitutional: Reports as per HPI, Denies fever(s) and Denies frequent falls Eyes Eyes: Reports as per HPI, Reports blurry vision and Reports change in vision ENT Ears, Nose, Mouth, and Throat: Denies vertigo and Denies neck pain Cardiovascular Cardiovascular: Reports as per HPI, Denies chest pain, Denies lightheadedness, Denies radiating jaw, neck or arm pain and Denies dyspnea Respiratory Respiratory: Reports as per HPI, Denies chest congestion, Denies cough and Denies dyspnea Gastrointestinal Gastrointestinal: Reports as per HPI, Denies abdominal pain, Denies change in bowel habits, Denies nausea and Denies vomiting Genitourinary Genitourinary: Reports system reviewed and no additional complaints, except as documented (denies change in urinary habits) Musculoskeletal Musculoskeletal: Reports as per HPI, Denies back pain, Denies myalgias, Denies muscle cramps and Denies neck pain Integumentary/Breasts Skin/Breast: Reports as per HPI and Denies rash Neurologic Neurologic: Reports as per HPI, Denies abnormal movements, Denies abnormal speech, Denies behavioral changes, Denies confusion, Denies vertigo and Denies frequent falls Psychiatric Psychiatric: Denies behavioral changes and Denies confusion Exam Const General: cooperative, healthy appearing, comfortable, no acute distress, well developed, well groomed and anxious Nutritional Appearance: well nourished and obese Orientation: alert, awake and oriented x3 [facility] Head: normal to inspection, no palpable skull fracture, normocephalic and atraumatic Ears: hearing grossly normal bilaterally, external ears normal and TM's normal bilaterally General nose exam: external nose normal Mouth: oral mucosae normal and moist mucous membranes Throat: posterior oropharynx normal Eyes General: appearance normal, both eyes and all related structures Alignment and Position: alignment normal Periorbital: periorbital findings normal Eyelids: eyelids normal Sclera: sclerae normal Cornea: corneas normal Pupils: PERRL EOM: EOM intact bilaterally Resp Effort & Inspection: normal respiratory effort, able to speak in complete sentences and no respiratory distress Auscultation: clear to auscultation bilaterally, no rales, no rhonchi and no wheezes Cardio Rate: regular rate Rhythm: regular rhythm Heart Sounds: S1 normal and S2 normal Skin General skin exam: no rashes or lesions noted Neuro General: patient alert, patient awake and patient oriented x3 Cranial Nerves: CN's II-XI intact bilaterally Cognition: normal cognition Speech: speech normal Gait: normal gait Motor: no pronator drift, no movement abnormalities noted, no fasciculations and muscle tone abnormal (5/5 except for left hip flexion which is 4/5) Sensory Exam: no sensory deficits noted Coordination: [id number] test normal and [id number] test normal Extrem General: normal to inspection, capillary refill normal, no pedal edema and no calf tenderness Course Vital Signs Vital signs: Vital Signs Temperature 36.9 C 04/13/25 07:47 Pulse 113 H 04/13/25 07:47 Respiratory Rate 18 04/13/25 07:47 Blood Pressure 132/79 04/13/25 07:47 Pulse Oximetry 94 04/13/25 07:47 Temperature 36.9 C 04/13/25 07:52 Temperature Source Oral 04/13/25 07:52 Pulse 113 H 04/13/25 07:52 Respiratory Rate 18 04/13/25 07:52 Respiratory Effort Normal 04/13/25 07:52 Respiratory Depth Normal 04/13/25 07:52 Respiratory Pattern Normal 04/13/25 07:52 Blood Pressure 132/79 04/13/25 07:52 Blood Pressure Position Sitting 04/13/25 07:52 Pulse Oximetry 94 04/13/25 07:52 Oxygen Delivery Method Room Air 04/13/25 07:52 Oxygen Flow Rate 0 04/13/25 07:52 Pain Level 3 04/13/25 07:52 Medical Decision Making Patient is a pleasant 29-year-old gentleman, well-known to myself and department, past medical history significant for men syndrome, PE on Eliquis, IBS, JOSE JUAN, anemia, left-sided arm numbness, presented with chief complaint of left sided weakness that he reports has been present for about the past week and has been progressively worsening. He particularly notices in his left lower extremity, particularly with hip flexion as well as in the left eye which he feels is tired. He does report that he is sleeping well. He denies any chest pain or palpitations. He denies any recent illness. No cough, cold, fever/chills. He reports that he is been taking his Eliquis as prescribed has not had any missed doses. He reports that he had similar symptoms when he was here recently, seen by Dr. Guzman. However, he reports that at that time it was more of this general feeling of unwell. At that time, he was also having diarrhea which he states is improved. Patient has been seen by neurology historically for left sided hand sensory changes and no abnormalities noted in the EMG or in the brain or neck MRI.He denies any recent trauma. He is not reporting any headaches. States that he has had some blurred vision. Was attempted to be seen at the [place] emergency department yesterday reports after waiting for 3 hours he left and waited to come here today. On exam, patient appears nontoxic. Resting comfortably no acute distress. Slight tachycardia with heart rate of 113 but this essentially baseline for the patient. He has slight weakness with flexion of the left hip but otherwise neurologic exam is intact. He is reporting some blurred vision, will have nursing staff perform visual acuity. The visual field testing at bedside is intact. He has no issues with ambulation or with balance. Did ambulate around the department did not note any gait disturbances. Does appear to be lifting the left leg well without any foot drop or drag. Normal cardiac exam. Normal pulmonary exam. Symptoms certainly are concerning for potential CVA. However, as the symptoms been going on for over a week, he is out of the window for any type of thrombolytic. He has been anticoagulated since February and denies missing any doses. Less likely to be a ischemic stroke and with the slow progression of his symptoms, I feel that less likely to be an hemorrhagic stroke. Also considered metabolic issue. He did have his TSH checked within the last month so we will hold off on this, it was normal at that time. Will obtain baseline labs as well as CTA of head and neck. Labs reviewed, no significant change from his baseline. Patient continues his baseline anemia. ECG shows normal sinus rhythm. Wanted by radiologist who advised that a CTA head and neck are normal. I discussed these findings with the patient. As the symptoms have been present for the past week and he has no abnormalities on the CTA and very reassuring gait and ambulation, I do not see indication that this is more likely to be an acute stroke. I did encourage he follow-up closely with primary care. We did discuss trying to reduce his stress and anxiety and trying to use some of his coping strategies at home. He will call to schedule follow-up appointment with his PCP. Return precautions were discussed. All his questions and concerns were addressed and he is in agreement this plan. Dictation completed using GetNotes dictation software. Please excuse any errors or diamond driller helper anomalies that may remain. Quality:SDOH Health Related Social Needs: Health related social needs lonely/isolated Health related social needs details patient here frequently due to anxiety. PFSH All Active Problems (Updated 04/13/25 @ 10:39 by ANDREW Magaña) Weakness (Acute) Encounter for medication refill (Acute) Orthostasis (Acute) Anemia (Chronic) Atypical chest pain (Acute) Atypical chest pain (Acute) Panic attack (Acute) Abdominal pain (Acute) Normocytic anemia (Acute) Coughing up blood (Acute) Renal cyst (Acute) Back pain (Acute) Heart palpitations (Acute) Headache (Acute) Hyperhomocysteinemia (Acute) Abdominal pain, epigastric (Acute) Chest pain, unspecified (Acute) Pulmonary infiltrates (Acute) Snoring (Acute) Pleural effusion (Acute) Rt groin pain (Acute) Rash (Acute) Shortness of breath (Acute) Edema, peripheral (Acute) Anxiety (Chronic) Chest discomfort (Acute) Pulmonary embolism and infarction (Acute) Left pulmonary infiltrate on CXR (Acute) Bilateral pulmonary embolism (Acute) Tenderness of neck (Acute) Right elbow pain (Acute) Acute leg pain (Acute) Bronchitis (Acute) Well adult health check (Acute) Obstructive sleep apnea (Chronic) Metabolic dysfunction-associated fatty liver disease (MAFLD) (Acute) Fatty liver (Acute) IBS (irritable bowel syndrome) (Chronic) Obesity (Chronic) Migraine with aura (Acute) Testicle lump (Acute) Pes anserine bursitis (Acute) Left-sided Flower's palsy (Acute) Opiate dependence, continuous (Acute) 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 Possible 2' Methadone, Clnzpm (?). Surg eval (+)/No further action. History of electrolyte imbalance (Acute) Neck pain on left side (Acute) with shoulder, upper back pain.. torticollis, radiating into left hip/leg Pulmonary nodule 1 cm or greater in diameter (Chronic) Therapeutic opioid induced constipation (Acute) Sphincter of Oddi dysfunction (Chronic) Abnormal CT scan, kidney (Acute) Intrahepatic bile duct dilation (Acute) Common bile duct dilatation (Chronic) Has been dilated for quite some time, now more-so. Normal LFTs. Known gallstones. Depression (Chronic) Elevated parathyroid hormone (Acute) Family history of coronary arteriosclerosis (Chronic) Father of OR at 50, mother had OR at 42 Severe anxiety with panic (Chronic) Medical History Multiple endocrine neoplasia type I CKD (chronic kidney disease) stage 2, GFR 60-89 ml/min GFR 64-65, with Hx FLORESITA and GFR < 45 Primary hyperparathyroidism Complex medical condition Serious electrolyte imbalances, with gynecomastia, possible MEN Dx, CKD and anemia with baseline anxiety and Hx PTSD. Hypocalcemia Anxiety Depression Hyperlipidemia Family history of multiple endocrine neoplasia, type 1 PTSD (post-traumatic stress disorder) Per pt. states no triggers at this time. Surgical History History of laparoscopic cholecystectomy (~11/2023) H/O parathyroidectomy Family History Mother Anxiety Asthma Depression Sister Anxiety Depression Father Cancer lung & stomach Depression Diabetes Hypertension MEN 1 (multiple endocrine neoplasia) Social History Smoking/Tobacco Use Status: Never Smoking risk assessment performed?: Yes Alcohol Intake: never Drug use: Current Sobriety Substance use type: former substance user, crack/cocaine, heroin and painkillers Details: stopped using substances for the past 4 years Adopted: No Caregiver/Support person: No Foster care: No Household members: none Housing: apartment Number of Children: 0 Communication Needs: None Education Level: high school Do you need help understanding health information?: Never current occupation: [employer] Pets and animals: Yes (Ally) Pets and animals: dog(s) Sexually active: No Do you think of yourself as: straight/heterosexual Current gender identity: male What is your relationship status?: How often do you talk on the phone with friends or family?: twice per week How often do you get together with friends or relatives?: never Do you belong to any clubs or organized social groups?: no Panel score (0-1 are the most socially isolated patients): 0 What type of physical activity do you participate in: walking Duration: 15-30 minutes/day Frequency: 5-6 times per week Maryam/Christianity: Gnosticism Special maryam needs: No Seatbelt use: always Helmet use: Yes Helmet use: always Drive intox or ride w/intox pizza driver: No Do you feel safe at home: Yes Do you feel safe in your relationship?: Yes
--- NOTE | 2025-04-13 08:00 | RT.EKG_ITS ---
APPROVED REPORT Exam: Resting ECG Reason for Exam: weakness Patient Location: E HR:81 bpm ECG Measurements Heart Rate 81 AXIS DC 183 P 52 QRSd 99 QRS 87 QT 393 T 10 QTc 456 Conclusion Sinus rhythm...normal P axis, V-rate 60- [address] elevation, lateral leads...ST >0.06mV, I aVL V5 V6 No Occlusion IN
[2025-04-13 09:27] LABS: Abs Immature Grans 0.03 10^3/uL (0.0-0.06); HCT 30.7 % (40.0-50.0); HGB 9.1 g/dL (13.5-17.5); Immature Grans % 0.5 %; MCH 23.9 pg (27.0-33.0); MCHC 29.6 % (32.0-36.0); MCV 81 fL (80-95); MPV 10.0 fL (8.0-11.0); Platelet Count 350 10^3/uL (130-400); RBC 3.80 10^6/uL (4.36-5.78); RDW 16.4 % (11.8-14.1); RDW-SD 47.9 fL; WBC 6.36 10^3/uL (4.4-10.8)
[2025-04-13] MEDS: Normal Saline Flush 10 ML SYR IVP (09:40)
[2025-04-13] MEDS: Normal Saline - Diluent 50 ML VIAL IJ (09:40)
[2025-04-13] MEDS: Omnipaque 350 MG/ML 100 ML BTL IJ (09:40)
[2025-04-13 09:53] LABS: ALT 31 U/L (16-63); AST 19 U/L (15-37); Albumin 3.2 g/dL (3.4-5.0); Alkaline Phosphatase 138 U/L (46-116); Anion Gap 7.1 mmol/L (3-11); BUN 11 mg/dL (7-18); Bilirubin, Total 0.2 mg/dL (0.2-1.0); CO2 33.9 mmol/L (21.0-32.0); Calcium 8.9 mg/dL (8.5-10.1); Chloride 99 mmol/L (98-107); Glucose 100 mg/dL (74-106); Magnesium 1.9 mg/dL (1.8-2.4); Potassium 3.8 mmol/L (3.5-5.1); Sodium 140 mmol/L (136-145); Total Protein 7.8 g/dL (6.4-8.2)
[2025-04-13] MEDS: Lactated Ringers 1,000 ML 1000 ML IV (09:55)
--- NOTE | 2025-04-13 10:00 | DI.CT_ITS ---
Exam(s) CT BRAIN NECK CTA EXAM: CT BRAIN NECK CTA CLINICAL HISTORY: left sided weakness. TECHNIQUE: Imaging Protocol: Axial CT angiography was performed with multi- slice acquisition and multi-planar and/or 3D reconstructions. CONTRAST MATERIAL: Intravenous: Omnipaque 350 Contrast volume:70 mL COMPARISON: CT CT HEAD WO from 03/21/2025 FINDINGS: CTA Neck W: Aortic arch anatomy: The aortic arch anatomy is conventional and there is no significant stenosis at the origin of the great vessels off of the aortic arch. No intimal flap evident. Anterior circulation: Both common carotid arteries ascend with normal luminal diameters. At the level the carotid bulbs and proximal internal carotid arteries there is minimal plaque without hemodynamically significant stenosis evident. Posterior circulation: Both vertebral arteries originate in conventional fashion off of the subclavian arteries and there is no obvious stenosis at the origin of the vertebral arteries. Both vertebral arteries exhibit normal luminal diameters within the foramen transversarium. Both vertebral arteries contribute to the formation of the basilar artery at the skull base. CTA Brain W: Anterior circulation: Both internal carotid arteries are patent in the skull base-carotid canals as well as within the cavernous sinuses. The supraclinoid aspects of the ICAs are patent. Both A1 segments are patent as are the anterior cerebral arteries and there is no evidence of aneurysm at the level of the anterior communicating artery. Both middle cerebral arteries are patent with no evidence of significant stenosis nor intraluminal thrombus. There also no aneurysms of these vessels. Posterior circulation: The basilar artery ascends in the midline. Distally it gives off patent bilateral superior cerebellar arteries. Above this level the basilar artery terminates as patent bilateral posterior cerebral arteries. There is no evidence of aneurysm at the tip of the basilar artery nor elsewhere in the [id number]. CT BRAIN: There is no evidence of intracranial hemorrhage, mass effect, or shift of midline structures. There are no extra-axial fluid collections. Ventricles are not enlarged or shifted. There are no ring enhancing lesions in the brain and no abnormal meningeal enhancement. IMPRESSION: 1. Patent carotid arteries in the neck. No hemodynamically significant stenosis. 2. Patent vertebral arteries. Thickened stenosis nor dissection. 3. Patent intracranial arteries. 4. No acute intracranial findings. Report called by myself to ER provider 04/13/2025 at 10:30 a.m. RADIATION DOSE DELIVERED: 2,431.42mGy.cm Total DLP DATA REPOSITORY: All CT scans at this facility are submitted to the National Radiology Data Registry (NRDR) Dose Index Registry (DIR) with the [employer] (A[employer]). RADIATION OPTIMIZATION: All CT scans at this facility use at least one of these dose optimization techniques: automated exposure control; mA and/or kV adjustment per patient size (includes targeted exams where dose is matched to clinical indication); or iterative reconstruction.
== END 2025-04-13 10:51 | disposition home or self-care (01) ==
PROVIDERS: Emergency Provider Physician Assistant; PCP Physician Assistant
DX: R53.1 Weakness (principal)
CPT/HCPCS: 99283; 99285; 36415; 70496; 70498; 80053; 93005; 96360; 83735; 85025; 93010; J3490

== ENCOUNTER 2025-04-14 13:53 | Emergency (ER) | payer OTHER, SELFPAY ==
[2025-04-14 13:56] VITALS: BP 137/88; PULSE 111; RESP 20; TEMP 36.9; O2SAT 95
[2025-04-14 14:00] VITALS: BP 137/88; PULSE 111; RESP 20; TEMP 36.9; O2SAT 95
--- NOTE | 2025-04-14 14:21 | W.ED.GENAD ---
Discharge Plan Disposition Patient Disposition: Home Condition: Stable Discharge Details Clinical Impression: Diarrhea Primary Care Provider: Sanjana Pritchett ED Provider: Ricardo Crabtree Home Meds and New Rx's Prescriptions: Continued gabapentin 300 mg capsule 300 mg PO BID Qty: 180 3RF omeprazole 40 mg capsule,delayed release(DR/EC) 40 mg PO DAILY Qty: 90 3RF lorazepam 1 mg tablet 1 mg PO DAILY PRN (Reason: anxiety) Qty: 10 0RF Rx Instructions: Use when considering ER visit cyclobenzaprine 10 mg tablet 10 mg PO TID PRN (Reason: muscle spasm) Qty: 30 3RF Eliquis 5 mg tablet 5 mg PO BID Qty: 60 6RF methadone 10 mg/5 mL solution 100 mg PO QAM calcitriol 0.5 mcg capsule 1 mcg PO .COMPLEX Qty: 270 3RF Rx Instructions: 1 mcg orally t2 tabs qam and 1 tab QHS; folic acid 1 mg tablet 1 mg PO DAILY Qty: 30 6RF calcium carbonate [Tums] 200 mg calcium (500 mg) tablet,chewable 2,000 mg PO BID prochlorperazine maleate 5 mg tablet 5 mg PO TID PRN (Reason: acute nausea) Qty: 30 0RF magnesium gluconate 27 mg magnesium (500 mg) tablet 500 mg PO BID Rx Instructions: takes 500mg QAM and 1000mg QHS diclofenac sodium 1 % gel 2 g topical QID Qty: 50 0RF Rx Instructions: apply to single elbow, wrist or hand; for hand includes palm/fingers/back of hand famotidine 20 mg tablet 20 mg PO BID Qty: 30 0RF sucralfate 1 gram tablet 1 g PO QACHS Qty: 90 0RF ondansetron 4 mg tablet,disintegrating 4 mg PO Q8H PRNQty: 20 0RF clonazepam 1 mg tablet 1 mg PO BID Qty: 10 0RF calcitriol 0.5 mcg capsule See Rx Instructions .ROUTE .COMPLEX Qty: 21 0RF Rx Instructions: take 2 capsules by mouth qAM and 1 tab qHS per day prochlorperazine maleate [Compazine] 10 mg tablet 10 mg PO Q6H PRNQty: 10 0RF lorazepam [Ativan] 1 mg tablet 1 mg PO DAILY PRNQty: 4 0RF Held polyethylene glycol 3350 17 gram powder in packet 17 g PO BID PRN Hold Instructions: Resume on 04/21/25. hold until diarrhea stops or you develop constipation Discharge Instructions Additional Instructions: Your blood work did not show any emergent findings. Follow-up with your primary care provider especially if your symptoms are continuing to discuss with possible gastroenterology referral. Your C. difficile test was negative, the other stool test takes a few days to come back and if it is positive you will receive a phone call. Return to the emergency department if you feel more ill or have new symptoms such as high fevers or severe abdominal pain. HPI General Mode of arrival: ambulatory. Date/Time Provider Initiated Documentation: 04/14/25 14:11. Limitations to Documentation: no limitations. Information obtained by: patient. History of Present Illness 29 year old M presents to the emergency department with the chief complaint of diarrhea , described as moderate, Patient started experiencing this day(s) (5) and it has been constant. No relieving factors improve symptom(s), No exacerbating factors reported . Patient notes no other symptoms.. Patient did receive the following treatments prior to arrival, none Related Data Home Medications Medication Instructions Recorded Confirmed calcium carbonate (Tums) 2,000 mg PO BID 02/02/23 04/14/25 methadone 10 mg/5 mL oral solution 100 mg PO QAM 06/12/23 04/14/25 prochlorperazine maleate 5 mg 5 mg PO TID PRN acute nausea #30 09/06/23 04/14/25 tablet tabs gabapentin 300 mg capsule 300 mg PO BID #180 caps 06/01/24 04/14/25 calcitriol 0.5 mcg capsule 1 mcg (2 x 0.5 mcg) PO .COMPLEX 06/29/24 04/14/25 #270 caps omeprazole 40 mg capsule,delayed 40 mg PO DAILY #90 caps 07/27/24 04/14/25 release polyethylene glycol 3350 17 gram 17 g PO BID PRN 10/15/24 04/14/25 oral powder packet Held on 04/14/25. Instructions: Resume on 04/21/25. hold until diarrhea stops or you develop constipation lorazepam 1 mg tablet 1 mg PO DAILY PRN anxiety #10 tabs 10/19/24 04/14/25 cyclobenzaprine 10 mg tablet 10 mg PO TID PRN muscle spasm #30 11/16/24 04/14/25 tabs magnesium gluconate 27 mg 500 mg PO BID 01/30/25 04/14/25 magnesium (500 mg) tablet diclofenac sodium 1 % topical gel 2 g topical QID #50 grams 02/03/25 04/14/25 apixaban 5 mg tablet (Eliquis) 5 mg PO BID #60 tabs 03/08/25 04/14/25 famotidine 20 mg tablet 20 mg PO BID #30 tabs 03/15/25 04/14/25 ondansetron 4 mg disintegrating 4 mg PO Q8H PRN #20 tabs 03/15/25 04/14/25 tablet sucralfate 1 gram tablet 1 g PO QACHS #90 tabs 03/15/25 04/14/25 prochlorperazine maleate 10 mg 10 mg PO Q6H PRN #10 tabs 03/16/25 04/14/25 tablet (Compazine) folic acid 1 mg tablet 1 mg PO DAILY #30 tabs 03/17/25 04/14/25 lorazepam 1 mg tablet (Ativan) 1 mg PO DAILY PRN #4 tabs 03/29/25 04/14/25 clonazepam 1 mg tablet 1 mg PO BID #10 tabs 04/03/25 04/14/25 calcitriol 0.5 mcg capsule See Rx Instructions .Route 04/12/25 04/14/25 .COMPLEX #21 caps Previous Rx's Medication Instructions Recorded prochlorperazine maleate 5 mg 5 mg PO TID PRN acute nausea #30 09/06/23 tablet tabs gabapentin 300 mg capsule 300 mg PO BID #180 caps 06/01/24 calcitriol 0.5 mcg capsule 1 mcg (2 x 0.5 mcg) PO .COMPLEX 06/29/24 #270 caps omeprazole 40 mg capsule,delayed 40 mg PO DAILY #90 caps 07/27/24 release lorazepam 1 mg tablet 1 mg PO DAILY PRN anxiety #10 tabs 10/19/24 cyclobenzaprine 10 mg tablet 10 mg PO TID PRN muscle spasm #30 11/16/24 tabs diclofenac sodium 1 % topical gel 2 g topical QID #50 grams 02/03/25 apixaban 5 mg tablet (Eliquis) 5 mg PO BID #60 tabs 03/08/25 famotidine 20 mg tablet 20 mg PO BID #30 tabs 03/15/25 ondansetron 4 mg disintegrating 4 mg PO Q8H PRN #20 tabs 03/15/25 tablet sucralfate 1 gram tablet 1 g PO QACHS #90 tabs 03/15/25 prochlorperazine maleate 10 mg 10 mg PO Q6H PRN #10 tabs 03/16/25 tablet (Compazine) folic acid 1 mg tablet 1 mg PO DAILY #30 tabs 03/17/25 lorazepam 1 mg tablet (Ativan) 1 mg PO DAILY PRN #4 tabs 03/29/25 clonazepam 1 mg tablet 1 mg PO BID #10 tabs 04/03/25 calcitriol 0.5 mcg capsule See Rx Instructions .Route 04/12/25 .COMPLEX #21 caps Allergies Allergy/AdvReac Type Severity Reaction Status Date / Time Penicillins Allergy Skin Rash Verified 04/14/25 14:02 marijuana (cannabis) AdvReac Severe Paranoia Verified 04/14/25 14:02 amoxicillin AdvReac Intermediate Nausea Verified 04/14/25 14:02 codeine AdvReac Intermediate pass out Verified 04/14/25 14:02 dextromethorphan (From AdvReac Intermediate got Verified 04/14/25 14:02 NyQuil) really hot and sweaty doxylamine (From NyQuil) AdvReac Intermediate got Verified 04/14/25 14:02 really hot and sweaty pseudoephedrine (From NyQuil) AdvReac Intermediate got Verified 04/14/25 14:02 really hot and sweaty General Stated Complaint: Abd Prob ADRIANA: 3 Review of Systems All systems reviewed & are unremarkable except as noted in HPI and below Constitutional Constitutional: Denies chills and Denies fever(s) Cardiovascular Cardiovascular: Denies chest pain and Denies dyspnea Respiratory Respiratory: Denies cough and Denies dyspnea Gastrointestinal Gastrointestinal: Denies abdominal pain, Reports diarrhea, Denies nausea and Denies vomiting Exam Const General: no acute distress Orientation: alert [facility] Head: normal to inspection Ears: external ears normal General nose exam: external nose normal Mouth: moist mucous membranes Eyes General: appearance normal, both eyes and all related structures Neck Neck: normal visual inspection Resp Effort & Inspection: normal respiratory effort and able to speak in complete sentences Cardio Rate: regular rate GI Palpation: soft and nontender Skin General skin exam: no rashes or lesions noted Neuro General: patient alert and patient oriented x3 Extrem General: normal to inspection Psych Mental Status: mental status grossly normal Course Vital Signs Vital signs: Vital Signs Temperature 36.9 C 04/14/25 13:56 Pulse 111 H 04/14/25 13:56 Respiratory Rate 20 04/14/25 13:56 Blood Pressure 137/88 04/14/25 13:56 Pulse Oximetry 95 04/14/25 13:56 Temperature 36.9 C 04/14/25 14:00 Pulse 111 H 04/14/25 14:00 Respiratory Rate 20 04/14/25 14:00 Blood Pressure 137/88 04/14/25 14:00 Blood Pressure Position Sitting 04/14/25 14:00 Pulse Oximetry 95 04/14/25 14:00 Oxygen Delivery Method Room Air 04/14/25 14:00 Oxygen Flow Rate 0 04/14/25 14:00 Medical Decision Making 29-year-old male with a history of multiple endocrine neoplasia, PE on Eliquis, comes in with 4 to 5 days of watery diarrhea he states occurring every hour. Denies any recent travel or recent antibiotics. Denies any fevers, chills, vomiting, abdominal pain. Well-appearing speaking full sense. His abdomen is soft and nondistended. Given the amount of diarrhea he is having we will check a C. difficile and also a fecal bacterial pathogen test. Also check CBC CMP. this could be food sensitivity or irritable bowel syndrome as well. He has no abdominal pain and no tenderness on exam I do not feel imaging of his abdomen is indicated. Patient stable and labs show no emergent findings. C. difficile negative. Advised the fecal bacterial pathogen test takes a few days and he will be called if it is positive for anything. I advised to follow-up with his PCP if symptoms continue and return precautions given. Differential Diagnosis Differential Diagnosis: Inflammatory bowel, irritable bowel, infectious diarrhea Quality:SDOH Health Related Social Needs: Health related social needs lonely/isolated Health related social needs details patient here frequently due to anxiety. PFSH All Active Problems (Updated 04/14/25 @ 16:31 by Ricardo Crabtree MD) Diarrhea (Acute) Weakness (Acute) Encounter for medication refill (Acute) Orthostasis (Acute) Anemia (Chronic) Atypical chest pain (Acute) Atypical chest pain (Acute) Panic attack (Acute) Abdominal pain (Acute) Normocytic anemia (Acute) Coughing up blood (Acute) Renal cyst (Acute) Back pain (Acute) Heart palpitations (Acute) Headache (Acute) Hyperhomocysteinemia (Acute) Abdominal pain, epigastric (Acute) Pulmonary infiltrates (Acute) Snoring (Acute) Pleural effusion (Acute) Rt groin pain (Acute) Rash (Acute) Shortness of breath (Acute) Edema, peripheral (Acute) Anxiety (Chronic) Chest discomfort (Acute) Pulmonary embolism and infarction (Acute) Left pulmonary infiltrate on CXR (Acute) Bilateral pulmonary embolism (Acute) Tenderness of neck (Acute) Right elbow pain (Acute) Acute leg pain (Acute) Bronchitis (Acute) Well adult health check (Acute) Obstructive sleep apnea (Chronic) Metabolic dysfunction-associated fatty liver disease (MAFLD) (Acute) Fatty liver (Acute) IBS (irritable bowel syndrome) (Chronic) Obesity (Chronic) Migraine with aura (Acute) Testicle lump (Acute) Pes anserine bursitis (Acute) Left-sided Flower's palsy (Acute) Opiate dependence, continuous (Acute) 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 Possible 2' Methadone, Clnzpm (?). Surg eval (+)/No further action. History of electrolyte imbalance (Acute) Neck pain on left side (Acute) with shoulder, upper back pain.. torticollis, radiating into left hip/leg Pulmonary nodule 1 cm or greater in diameter (Chronic) Therapeutic opioid induced constipation (Acute) Sphincter of Oddi dysfunction (Chronic) Abnormal CT scan, kidney (Acute) Intrahepatic bile duct dilation (Acute) Common bile duct dilatation (Chronic) Has been dilated for quite some time, now more-so. Normal LFTs. Known gallstones. Depression (Chronic) Elevated parathyroid hormone (Acute) Family history of coronary arteriosclerosis (Chronic) Father of DE at 50, mother had DE at 42 Severe anxiety with panic (Chronic) Medical History Multiple endocrine neoplasia type I CKD (chronic kidney disease) stage 2, GFR 60-89 ml/min GFR 64-65, with Hx FLORESITA and GFR < 45 Primary hyperparathyroidism Complex medical condition Serious electrolyte imbalances, with gynecomastia, possible MEN Dx, CKD and anemia with baseline anxiety and Hx PTSD. Hypocalcemia Anxiety Depression Hyperlipidemia Family history of multiple endocrine neoplasia, type 1 PTSD (post-traumatic stress disorder) Per pt. states no triggers at this time. Surgical History History of laparoscopic cholecystectomy (~11/2023) H/O parathyroidectomy Family History Mother Anxiety Asthma Depression Sister Anxiety Depression Father Cancer lung & stomach Depression Diabetes Hypertension MEN 1 (multiple endocrine neoplasia) Social History Smoking/Tobacco Use Status: Never Smoking risk assessment performed?: Yes Alcohol Intake: never Drug use: Current Sobriety Substance use type: former substance user, crack/cocaine, heroin and painkillers Details: stopped using substances for the past 4 years Adopted: No Caregiver/Support person: No Foster care: No Household members: none Housing: apartment Number of Children: 0 Communication Needs: None Education Level: high school Do you need help understanding health information?: Never current occupation: [employer] Pets and animals: Yes (Ally) Pets and animals: dog(s) Sexually active: No Do you think of yourself as: straight/heterosexual Current gender identity: male What is your relationship status?: How often do you talk on the phone with friends or family?: twice per week How often do you get together with friends or relatives?: never Do you belong to any clubs or organized social groups?: no Panel score (0-1 are the most socially isolated patients): 0 What type of physical activity do you participate in: walking Duration: 15-30 minutes/day Frequency: 5-6 times per week Maryam/Holiness: [employer]an Special maryam needs: No Seatbelt use: always Helmet use: Yes Helmet use: always Drive intox or ride w/intox armored car driver: No Do you feel safe at home: Yes Do you feel safe in your relationship?: Yes
[2025-04-14 14:53] LABS: Abs Immature Grans 0.03 10^3/uL (0.0-0.06); HCT 30.4 % (40.0-50.0); HGB 9.1 g/dL (13.5-17.5); Immature Grans % 0.3 %; MCH 24.1 pg (27.0-33.0); MCHC 29.9 % (32.0-36.0); MCV 80 fL (80-95); MPV 10.2 fL (8.0-11.0); Platelet Count 406 10^3/uL (130-400); RBC 3.78 10^6/uL (4.36-5.78); RDW 16.4 % (11.8-14.1); RDW-SD 47.7 fL; WBC 8.76 10^3/uL (4.4-10.8)
[2025-04-14 15:10] LABS: ALT 35 U/L (16-63); AST 45 U/L (15-37); Albumin 3.3 g/dL (3.4-5.0); Alkaline Phosphatase 147 U/L (46-116); Anion Gap 5.4 mmol/L (3-11); BUN 7 mg/dL (7-18); Bilirubin, Total 0.2 mg/dL (0.2-1.0); CO2 33.6 mmol/L (21.0-32.0); Calcium 8.9 mg/dL (8.5-10.1); Chloride 99 mmol/L (98-107); Glucose 93 mg/dL (74-106); Magnesium 1.9 mg/dL (1.8-2.4); Potassium 4.5 mmol/L (3.5-5.1); Sodium 138 mmol/L (136-145); Total Protein 8.4 g/dL (6.4-8.2)
[2025-04-14 16:03] LABS: EPI 027-NAP1-B1 PRESUMPTIVE NEGATIVE
[2025-04-15 14:29] LABS: Campylobacter PCR Negative (Negative); Shiga Toxin PCR Negative (Negative); Shigella/Enteroinvasive Ecoli Negative (Negative)
== END 2025-04-14 16:40 | disposition home or self-care (01) ==
PROVIDERS: Emergency Provider Emergency Medicine; PCP Physician Assistant
DX: R19.7 Diarrhea, unspecified (principal); Z60.8 Other problems related to social environment
CPT/HCPCS: 99283 ×2; 36415; 80053; 87505; 83735; 85025

== ENCOUNTER 2025-04-21 06:52 | Emergency (ER) | payer OTHER, SELFPAY ==
[2025-04-21] VITALS (23 sets, daily range): BP systolic 113–139; BP diastolic 55–91; PULSE 81–102; RESP 13–25; TEMP 36.8; O2SAT 90–98
--- NOTE | 2025-04-21 07:00 | RT.EKG_ITS ---
APPROVED REPORT Exam: Resting ECG Reason for Exam: Chest Pain Patient Location: E HR:97 bpm ECG Measurements Heart Rate 97 AXIS TN 161 P 39 QRSd 100 QRS 15 QT 380 T 34 QTc 484 Conclusion Sinus rhythm...normal P axis, V-rate 60- 99 Physician: Unchanged, No STEMI
--- NOTE | 2025-04-21 07:15 | DI.CT_ITS ---
Exam(s) CT CHEST PE CTA EXAM: CT CHEST PE CTA CLINICAL HISTORY: chest pain, hx of PE, mildly hypoxic. TECHNIQUE: Imaging Protocol: Axial CT angiography was performed with multi- slice acquisition and multi-planar and/or 3D reconstructions. Lung Computer Aided Detection (CAD) was utilized. CONTRAST MATERIAL: Intravenous: Omnipaque 350 contrast volume:100 mL COMPARISON: CT CT CHEST PE CTA from 02/24/[address] CHEST PE CTA from 03/04/[address] ABDOMEN PELVIS W from 03/16/2025 FINDINGS: Tracheobronchial tree: Patent where visualized. No bronchiectasis. Pulmonary parenchyma: Significant improvement in the ground-glass opacities in the lungs. The predominantly in the dependent portion of the lower lobe and likely reflect atelectasis. There are no focal consolidating infiltrates seen. No architectural distortion. Pulmonary Arteries: There are no pulmonary emboli visualized. Mediastinum and Jessika: No dominant adenopathy or fluid collection. The esophagus is unremarkable. Visualized thyroid gland: Unremarkable. Pleura: No effusion or pneumothorax. Heart: The heart is not dilated. No coronary artery calcifications are seen. No pericardial effusion. The RV to LV ratio is less than 1. Aorta: Thoracic aorta non-dilated. No evidence of dissection. Upper abdomen: The round hypodensity in the superior pole of the left kidney is unchanged. Further evaluation with MRI is recommended. Status post cholecystectomy. Soft tissues: Bilateral gynecomastia. Bones: Within normal limits for the patient's age. IMPRESSION: 1. No evidence of pulmonary embolism, thoracic aortic dissection or aneurysm. 2. Significant improvement in the ground-glass opacities in the lungs. Atelectatic changes are seen in the lower lobes. 3. Stable left renal hypodensity. MRI is recommended for further characterization. RADIATION DOSE DELIVERED: 352.3mGy.cm Total DLP DATA REPOSITORY: All CT scans at this facility are submitted to the National Radiology Data Registry (NRDR) Dose Index Registry (DIR) with the [employer] (A[employer]). RADIATION OPTIMIZATION: All CT scans at this facility use at least one of these dose optimization techniques: automated exposure control; mA and/or kV adjustment per patient size (includes targeted exams where dose is matched to clinical indication); or iterative reconstruction.
--- NOTE | 2025-04-21 07:15 | DI.US_ITS ---
Exam(s) US LOWER EXTREMITY VENOUS LT EXAM: US LOWER EXTREMITY VENOUS LT CLINICAL HISTORY: hx of dvt, left calf pain, eval for DVT TECHNIQUE: Left lower extremity venous ultrasound performed using grayscale, color-flow, and spectral Doppler analysis. COMPARISON: US US LOWER EXTREMITY VENOUS LT from 08/11/2024 FINDINGS: The left common femoral, femoral and popliteal veins demonstrate normal compressibility, augmentation, and color Doppler. The posterior tibial and peroneal veins are patent. The saphenofemoral junction is unremarkable. There is no evidence of a Almanza cyst. The soft tissues are unremarkable. IMPRESSION: No evidence of a left lower extremity DVT. DATA REPOSITORY:
[2025-04-21] MEDS: Normal Saline 500 ML IV (08:19)
[2025-04-21 08:28] LABS: BE (Venous) 6 mmol/L (-2-3); HCO3 (Venous) 31 mmol/L (23-28); O2 Sat (Venous) 59 %; TCO2 (Venous) 29 mmol/L (24-29); pCO2 (Venous) 48 mmHg (41-51); pO2 (Venous) 32 mmHg
[2025-04-21 08:29] LABS: Abs Immature Grans 0.04 10^3/uL (0.0-0.06); HCT 31.0 % (40.0-50.0); HGB 9.4 g/dL (13.5-17.5); Immature Grans % 0.6 %; MCH 24.0 pg (27.0-33.0); MCHC 30.3 % (32.0-36.0); MCV 79 fL (80-95); MPV 9.9 fL (8.0-11.0); Platelet Count 402 10^3/uL (130-400); RBC 3.91 10^6/uL (4.36-5.78); RDW 17.1 % (11.8-14.1); RDW-SD 49.1 fL; WBC 6.99 10^3/uL (4.4-10.8)
[2025-04-21 08:46] LABS: INR 1.0 (0.9-1.1); PTT Activated 26.1 sec (20.6-30.2); Prothrombin Time 10.2 sec (9.1-11.1)
[2025-04-21 08:54] LABS: ALT 37 U/L (16-63); AST 29 U/L (15-37); Albumin 3.2 g/dL (3.4-5.0); Alkaline Phosphatase 138 U/L (46-116); Anion Gap 8.2 mmol/L (3-11); BUN 13 mg/dL (7-18); Bilirubin, Total 0.3 mg/dL (0.2-1.0); CO2 30.8 mmol/L (21.0-32.0); Calcium 8.6 mg/dL (8.5-10.1); Chloride 101 mmol/L (98-107); Glucose 97 mg/dL (74-106); Potassium 3.7 mmol/L (3.5-5.1); Sodium 140 mmol/L (136-145); Total Protein 8.0 g/dL (6.4-8.2)
[2025-04-21 08:57] LABS: Troponin I < 4 ng/L (<or=76)
[2025-04-21] MEDS: Omnipaque 350 MG/ML 100 ML BTL IJ (09:09)
[2025-04-21] MEDS: Normal Saline - Diluent 50 ML VIAL IJ (09:09)
[2025-04-21] MEDS: Normal Saline Flush 10 ML SYR IVP (09:09)
--- NOTE | 2025-04-21 09:19 | W.ED.GENAD ---
Discharge Plan Disposition Patient Disposition: Home Condition: Good Discharge Details Clinical Impression: Breath shortness Primary Care Provider: Sanjana Pritchett ED Provider: Richy Eagle Home Meds and New Rx's Prescriptions: No Action gabapentin 300 mg capsule 300 mg PO BID Qty: 180 3RF omeprazole 40 mg capsule,delayed release(DR/EC) 40 mg PO DAILY Qty: 90 3RF lorazepam 1 mg tablet 1 mg PO DAILY PRN (Reason: anxiety) Qty: 10 0RF Rx Instructions: Use when considering ER visit cyclobenzaprine 10 mg tablet 10 mg PO TID PRN (Reason: muscle spasm) Qty: 30 3RF Eliquis 5 mg tablet 5 mg PO BID Qty: 60 6RF methadone 10 mg/5 mL solution 100 mg PO QAM calcitriol 0.5 mcg capsule 1 mcg PO .COMPLEX Qty: 270 3RF Rx Instructions: 1 mcg orally t2 tabs qam and 1 tab QHS; folic acid 1 mg tablet 1 mg PO DAILY Qty: 30 6RF calcium carbonate [Tums] 200 mg calcium (500 mg) tablet,chewable 2,000 mg PO BID prochlorperazine maleate 5 mg tablet 5 mg PO TID PRN (Reason: acute nausea) Qty: 30 0RF polyethylene glycol 3350 17 gram powder in packet 17 g PO BID PRN magnesium gluconate 27 mg magnesium (500 mg) tablet 500 mg PO BID Rx Instructions: takes 500mg QAM and 1000mg QHS diclofenac sodium 1 % gel 2 g topical QID Qty: 50 0RF Rx Instructions: apply to single elbow, wrist or hand; for hand includes palm/fingers/back of hand famotidine 20 mg tablet 20 mg PO BID Qty: 30 0RF sucralfate 1 gram tablet 1 g PO QACHS Qty: 90 0RF ondansetron 4 mg tablet,disintegrating 4 mg PO Q8H PRNQty: 20 0RF clonazepam 1 mg tablet 1 mg PO BID Qty: 10 0RF calcitriol 0.5 mcg capsule See Rx Instructions .ROUTE .COMPLEX Qty: 21 0RF Rx Instructions: take 2 capsules by mouth qAM and 1 tab qHS per day prochlorperazine maleate [Compazine] 10 mg tablet 10 mg PO Q6H PRNQty: 10 0RF lorazepam [Ativan] 1 mg tablet 1 mg PO DAILY PRNQty: 4 0RF Discharge Instructions Instructions: Shortness of Breath, Adult ED Additional Instructions: At this time your CAT scan shows no evidence of blood clot PE or worsening pneumonia. Your ultrasound shows no signs of blood clot. Please avoid taking your methadone and your Klonopin at a similar time, spread these apart. If you notice any worsening of your symptoms, or any new symptoms such as vomiting, diarrhea, fever, chills, shortness of breath, chest pain, numbness, weakness, or fainting , please return immediately to the emergency department for reevaluation. Please follow up with your primary care provider as soon as possible for reassessment and reevaluation. As always, it was a pleasure participating in your medical care today. Stand Alone Forms: Portal Information Referrals: Sanjana Pritchett [Primary Care Provider, Medicine] [facility] General Date/Time Provider Initiated Documentation: 04/21/25 07:13. HPI Narrative: This is a 29-year-old male with a past medical history significant for anxiety, depression, high cholesterol, men type I, multiple electrolyte abnormalities with subsequent parathyroidectomy on 03/26/2022 at [facility] [place], PTSD, GERD, cholecystectomy 12/07, bilateral pulmonary embolisms with left-sided pulmonary infarct (diagnosed 02/2025) now on apixaban who presents today for evaluation of chest pain. Patient states that for the last 2 days he has had increased shortness of breath both with exertion and at rest. He states that he has checked his pulse oximeter from time to time at home and noticed that it gets down to the low 90s and sometimes 89. He states that he has also noted some mild left lower leg pain which has been uncomfortable as well. He states that it is in a location similar to where his previous DVT was. He denies any hemoptysis. He denies any pleuritic chest pain. He denies any fever or chills. No cough. No other complaints at this time. He has been taking his anticoagulant as prescribed. Related Data Home Medications Medication Instructions Recorded Confirmed calcium carbonate (Tums) 2,000 mg PO BID 02/02/23 04/21/25 methadone 10 mg/5 mL oral solution 100 mg PO QAM 06/12/23 04/21/25 prochlorperazine maleate 5 mg 5 mg PO TID PRN acute nausea #30 09/06/23 04/21/25 tablet tabs gabapentin 300 mg capsule 300 mg PO BID #180 caps 06/01/24 04/21/25 calcitriol 0.5 mcg capsule 1 mcg (2 x 0.5 mcg) PO .COMPLEX 06/29/24 04/21/25 #270 caps omeprazole 40 mg capsule,delayed 40 mg PO DAILY #90 caps 07/27/24 04/21/25 release polyethylene glycol 3350 17 gram 17 g PO BID PRN 10/15/24 04/21/25 oral powder packet lorazepam 1 mg tablet 1 mg PO DAILY PRN anxiety #10 tabs 10/19/24 04/21/25 cyclobenzaprine 10 mg tablet 10 mg PO TID PRN muscle spasm #30 11/16/24 04/21/25 tabs magnesium gluconate 27 mg 500 mg PO BID 01/30/25 04/21/25 magnesium (500 mg) tablet diclofenac sodium 1 % topical gel 2 g topical QID #50 grams 02/03/25 04/21/25 apixaban 5 mg tablet (Eliquis) 5 mg PO BID #60 tabs 03/08/25 04/21/25 famotidine 20 mg tablet 20 mg PO BID #30 tabs 03/15/25 04/21/25 ondansetron 4 mg disintegrating 4 mg PO Q8H PRN #20 tabs 03/15/25 04/21/25 tablet sucralfate 1 gram tablet 1 g PO QACHS #90 tabs 03/15/25 04/21/25 prochlorperazine maleate 10 mg 10 mg PO Q6H PRN #10 tabs 03/16/25 04/21/25 tablet (Compazine) folic acid 1 mg tablet 1 mg PO DAILY #30 tabs 03/17/25 04/21/25 lorazepam 1 mg tablet (Ativan) 1 mg PO DAILY PRN #4 tabs 03/29/25 04/21/25 clonazepam 1 mg tablet 1 mg PO BID #10 tabs 04/03/25 04/21/25 calcitriol 0.5 mcg capsule See Rx Instructions .Route 04/12/25 04/21/25 .COMPLEX #21 caps Previous Rx's Medication Instructions Recorded prochlorperazine maleate 5 mg 5 mg PO TID PRN acute nausea #30 09/06/23 tablet tabs gabapentin 300 mg capsule 300 mg PO BID #180 caps 06/01/24 calcitriol 0.5 mcg capsule 1 mcg (2 x 0.5 mcg) PO .COMPLEX 06/29/24 #270 caps omeprazole 40 mg capsule,delayed 40 mg PO DAILY #90 caps 07/27/24 release lorazepam 1 mg tablet 1 mg PO DAILY PRN anxiety #10 tabs 10/19/24 cyclobenzaprine 10 mg tablet 10 mg PO TID PRN muscle spasm #30 11/16/24 tabs diclofenac sodium 1 % topical gel 2 g topical QID #50 grams 02/03/25 apixaban 5 mg tablet (Eliquis) 5 mg PO BID #60 tabs 03/08/25 famotidine 20 mg tablet 20 mg PO BID #30 tabs 03/15/25 ondansetron 4 mg disintegrating 4 mg PO Q8H PRN #20 tabs 03/15/25 tablet sucralfate 1 gram tablet 1 g PO QACHS #90 tabs 03/15/25 prochlorperazine maleate 10 mg 10 mg PO Q6H PRN #10 tabs 03/16/25 tablet (Compazine) folic acid 1 mg tablet 1 mg PO DAILY #30 tabs 03/17/25 lorazepam 1 mg tablet (Ativan) 1 mg PO DAILY PRN #4 tabs 03/29/25 clonazepam 1 mg tablet 1 mg PO BID #10 tabs 04/03/25 calcitriol 0.5 mcg capsule See Rx Instructions .Route 04/12/25 .COMPLEX #21 caps Allergies Allergy/AdvReac Type Severity Reaction Status Date / Time Penicillins Allergy Skin Rash Verified 04/21/25 07:17 marijuana (cannabis) AdvReac Severe Paranoia Verified 04/21/25 07:17 amoxicillin AdvReac Intermediate Nausea Verified 04/21/25 07:17 codeine AdvReac Intermediate pass out Verified 04/21/25 07:17 dextromethorphan (From AdvReac Intermediate got Verified 04/21/25 07:17 NyQuil) really hot and sweaty doxylamine (From NyQuil) AdvReac Intermediate got Verified 04/21/25 07:17 really hot and sweaty pseudoephedrine (From NyQuil) AdvReac Intermediate got Verified 04/21/25 07:17 really hot and sweaty General Stated Complaint: Vascular ADRIANA: 2 Exam Narrative Exam Narrative: 1.Const: Well-nourished, Well-developed, appearing stated age 2.Eyes: PERRL, no conjunctival injection, and symmetrical lids. 3.ENT: Atraumatic external nose and ears. Moist MM. Neck: Symmetric, trachea midline, No thyromegaly. 4.CVS: +S1/S2, Peripheral pulses 2+ and equal in all extremities. Brisk capillary refill in all extremities. 5.RESP: Unlabored respiratory effort. Clear to auscultation bilaterally. No wheezes rales or rhonchi 6.GI: Soft, Nontender/Nondistended, No hepatosplenomegaly. No guarding or rebound. 7.MSK: Normocephalic/Atraumatic, Extremities w/o deformity or ttp No cyanosis or clubbing, Normal movement of all extremities. Calves are nontender on deep palpation, no pitting edema. Left calf is roughly 1 cm larger in circumference than the right. 8.Skin: Warm, Dry. No rashes or lesions. 9.Neuro: visualizer II-XII grossly intact. Sensation grossly intact, no focal neurologic deficits. 10.Psych: (AAO) x3. Appropriate mood and affect Course Vital Signs Vital signs: Vital Signs Temperature 36.8 C 04/21/25 06:54 Pulse 102 H 04/21/25 06:54 Respiratory Rate 19 04/21/25 06:54 Blood Pressure 127/55 L 04/21/25 06:54 Pulse Oximetry 96 04/21/25 06:54 Temperature 36.8 C 04/21/25 06:54 Temperature Source Oral 04/21/25 06:54 Pulse 102 H 04/21/25 06:54 Respiratory Rate 20 04/21/25 07:12 Respiratory Effort Normal 04/21/25 07:12 Respiratory Depth Normal 04/21/25 07:12 Respiratory Pattern Normal 04/21/25 07:12 Blood Pressure 127/55 L 04/21/25 06:54 Blood Pressure Position Sitting 04/21/25 06:54 Pulse Oximetry 96 04/21/25 06:54 Oxygen Delivery Method Room Air 04/21/25 06:54 Oxygen Flow Rate 0 04/21/25 06:54 Pain Level 4 04/21/25 07:12 Comment calf pain 04/21/25 06:54 Lab/Test Results Lab/Test Results: Laboratory Tests Range/Units 04/21/25 08:12 WBC (4.4-10.8) 10^3/uL 6.99 RBC (4.36-5.78) 10^6/uL 3.91 L Hgb (13.5-17.5) g/dL 9.4 L Hct (40.0-50.0) % 31.0 L MCV (80-95) fL 79 L MCH (27.0-33.0) pg 24.0 L MCHC (32.0-36.0) % 30.3 L RDW (11.8-14.1) % 17.1 H Plt Count (130-400) 10^3/uL 402 H MPV (8.0-11.0) fL 9.9 Immature Gran % % 0.6 Neutrophils % % 66.0 Lymphocytes % % 20.7 Monocytes % % 10.4 Eosinophils % % 1.7 Basophils % % 0.6 Nucleated RBC % (0.0-0.3) % 0.0 Absolute Neutrophils (1.2-6.7) 10^3/uL 4.61 Absolute Lymphocytes (1.2-3.4) 10^3/uL 1.45 Absolute Monocytes (0.1-0.8) 10^3/uL 0.73 Absolute Eosinophils (0.0-0.7) 10^3/uL 0.12 Absolute Basophils (0.0-0.2) 10^3/uL 0.04 PT (9.1-11.1) sec 10.2 INR (0.9-1.1) 1.0 APTT (20.6-30.2) sec 26.1 VBG pH (7.31-7.41) 7.41 VBG pCO2 (41-51) mmHg 48 VBG pO2 mmHg 32 VBG HCO3 (23-28) mmol/L 31 H VBG Total CO2 (24-29) mmol/L 29 VBG O2 Saturation % 59 VBG Base Excess (-2-3) mmol/L 6 H Sodium (136-145) mmol/L 140 Potassium (3.5-5.1) mmol/L 3.7 Chloride (98-107) mmol/L 101 Carbon Dioxide (21.0-32.0) mmol/L 30.8 Anion Gap (3-11) mmol/L 8.2 BUN (7-18) mg/dL 13 Creatinine (0.70-1.30) mg/dL 1.4 H Est GFR (CKD-EPI 2020) (mL/min/1.73m2) 68.91 Glucose (74-106) mg/dL 97 Calcium (8.5-10.1) mg/dL 8.6 Total Bilirubin (0.2-1.0) mg/dL 0.3 AST (15-37) U/L 29 ALT (16-63) U/L 37 Alkaline Phosphatase (46-116) U/L 138 H Troponin I (<or=76) ng/L < 4 NT-Pro-B Natriuret Pep (<300) pg/mL 19 Total Protein (6.4-8.2) g/dL 8.0 Albumin (3.4-5.0) g/dL 3.2 L Medical Decision Making This is a 29-year-old male with a past medical history significant for anxiety, depression, high cholesterol, men type I, multiple electrolyte abnormalities with subsequent parathyroidectomy on 03/26/2022 at [facility] [place], PTSD, GERD, cholecystectomy 12/07, bilateral pulmonary embolisms with left-sided pulmonary infarct (diagnosed 02/2025) now on apixaban who presents today for evaluation of chest pain. Patient states that for the last 2 days he has had increased shortness of breath both with exertion and at rest. He states that he has checked his pulse oximeter from time to time at home and noticed that it gets down to the low 90s and sometimes 89. He states that he has also noted some mild left lower leg pain which has been uncomfortable as well. He states that it is in a location similar to where his previous DVT was. He denies any hemoptysis. He denies any pleuritic chest pain. He denies any fever or chills. No cough. No other complaints at this time. He has been taking his anticoagulant as prescribed. Exam demonstrates a well-appearing male, slight calf enlargement on the left compared to the right but no significant tenderness. Pulses are symmetric. Lungs are clear. Vital signs stable. Differential is broad but includes worsening PE, DVT, pneumonia or less likely cardiac etiology. Will evaluate for these concerns, monitor closely and reassess. 10:21 AM Laboratory workup is returned stable and unremarkable, serial troponins, EKG, normal, proBNP is normal suggesting no signs of excessive right heart strain. CTA is negative for PE, ultrasound is negative for any evidence of DVT. Discussed the case with the patient, and he also states that he is taking his methadone and Klonopin at similar times, this is likely having a cumulative effect on the patient's respiratory status. Recommend that he split these up and not take them at a similar time to avoid this negative affect. Otherwise patient is hemodynamically stable with no hypoxemia. Patient stable for discharge. No evidence of significant life-threatening etiology at this time. Discussed red flags which to return. I have extensively reviewed the treatment plan and discharge instructions with the patient. I have addressed all patient concerns at this time. The patient was made aware of what symptoms to monitor for that would warrant a return to the emergency department. Discussed the plan with the patient, they demonstrate verbal understanding and agreement with our assessment and plan at this time. The documentation in this chart was dictated using PoachIt dictation software. Please excuse any dictation errors. FINDINGS: The left common femoral, femoral and popliteal veins demonstrate normal compressibility, augmentation, and color Doppler. The posterior tibial and peroneal veins are patent. The saphenofemoral junction is unremarkable. There is no evidence of a Almanza cyst. The soft tissues are unremarkable. IMPRESSION: No evidence of a left lower extremity DVT. FINDINGS: Tracheobronchial tree: Patent where visualized. No bronchiectasis. Pulmonary parenchyma: Significant improvement in the ground-glass opacities in the lungs. The predominantly in the dependent portion of the lower lobe and likely reflect atelectasis. There are no focal consolidating infiltrates seen. No architectural distortion. Pulmonary Arteries: There are no pulmonary emboli visualized. Mediastinum and Jessika: No dominant adenopathy or fluid collection. The esophagus is unremarkable. Visualized thyroid gland: Unremarkable. Pleura: No effusion or pneumothorax. Heart: The heart is not dilated. No coronary artery calcifications are seen. No pericardial effusion. The RV to LV ratio is less than 1. Aorta: Thoracic aorta non-dilated. No evidence of dissection. Upper abdomen: The round hypodensity in the superior pole of the left kidney is unchanged. Further evaluation with MRI is recommended. Status post cholecystectomy. Soft tissues: Bilateral gynecomastia. Bones: Within normal limits for the patient's age. IMPRESSION: 1. No evidence of pulmonary embolism, thoracic aortic dissection or aneurysm. 2. Significant improvement in the ground-glass opacities in the lungs. Atelectatic changes are seen in the lower lobes. 3. Stable left renal hypodensity. MRI is recommended for further characterization. Quality:SDOH Health Related Social Needs: Health related social needs lonely/isolated Health related social needs details patient here frequently due to anxiety. PFSH All Active Problems (Updated 04/21/25 @ 10:23 by Richy Eagle DO) Breath shortness (Acute) Diarrhea (Acute) Weakness (Acute) Encounter for medication refill (Acute) Orthostasis (Acute) Anemia (Chronic) Atypical chest pain (Acute) Atypical chest pain (Acute) Panic attack (Acute) Abdominal pain (Acute) Normocytic anemia (Acute) Coughing up blood (Acute) Renal cyst (Acute) Back pain (Acute) Heart palpitations (Acute) Hyperhomocysteinemia (Acute) Pulmonary infiltrates (Acute) Snoring (Acute) Pleural effusion (Acute) Rt groin pain (Acute) Rash (Acute) Shortness of breath (Acute) Edema, peripheral (Acute) Anxiety (Chronic) Chest discomfort (Acute) Pulmonary embolism and infarction (Acute) Left pulmonary infiltrate on CXR (Acute) Bilateral pulmonary embolism (Acute) Tenderness of neck (Acute) Right elbow pain (Acute) Acute leg pain (Acute) Bronchitis (Acute) Well adult health check (Acute) Obstructive sleep apnea (Chronic) Metabolic dysfunction-associated fatty liver disease (MAFLD) (Acute) Fatty liver (Acute) IBS (irritable bowel syndrome) (Chronic) Obesity (Chronic) Migraine with aura (Acute) Testicle lump (Acute) Pes anserine bursitis (Acute) Left-sided Flower's palsy (Acute) Opiate dependence, continuous (Acute) 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 Possible 2' Methadone, Clnzpm (?). Surg eval (+)/No further action. History of electrolyte imbalance (Acute) Neck pain on left side (Acute) with shoulder, upper back pain.. torticollis, radiating into left hip/leg Pulmonary nodule 1 cm or greater in diameter (Chronic) Therapeutic opioid induced constipation (Acute) Sphincter of Oddi dysfunction (Chronic) Abnormal CT scan, kidney (Acute) Intrahepatic bile duct dilation (Acute) Common bile duct dilatation (Chronic) Has been dilated for quite some time, now more-so. Normal LFTs. Known gallstones. Depression (Chronic) Elevated parathyroid hormone (Acute) Family history of coronary arteriosclerosis (Chronic) Father of MN at 50, mother had MN at 42 Severe anxiety with panic (Chronic) Medical History Multiple endocrine neoplasia type I CKD (chronic kidney disease) stage 2, GFR 60-89 ml/min GFR 64-65, with Hx FLORESITA and GFR < 45 Primary hyperparathyroidism Complex medical condition Serious electrolyte imbalances, with gynecomastia, possible MEN Dx, CKD and anemia with baseline anxiety and Hx PTSD. Hypocalcemia Anxiety Depression Hyperlipidemia Family history of multiple endocrine neoplasia, type 1 PTSD (post-traumatic stress disorder) Per pt. states no triggers at this time. Surgical History History of laparoscopic cholecystectomy (~11/2023) H/O parathyroidectomy Family History Mother Anxiety Asthma Depression Sister Anxiety Depression Father Cancer lung & stomach Depression Diabetes Hypertension MEN 1 (multiple endocrine neoplasia) Social History Smoking/Tobacco Use Status: Never Smoking risk assessment performed?: Yes Alcohol Intake: never Drug use: Current Sobriety Substance use type: former substance user, crack/cocaine, heroin and painkillers Details: stopped using substances for the past 4 years Adopted: No Caregiver/Support person: No Foster care: No Household members: none Housing: apartment Number of Children: 0 Communication Needs: None Education Level: high school Do you need help understanding health information?: Never current occupation: [employer] Pets and animals: Yes (Ally) Pets and animals: dog(s) Sexually active: No Do you think of yourself as: straight/heterosexual Current gender identity: male What is your relationship status?: How often do you talk on the phone with friends or family?: twice per week How often do you get together with friends or relatives?: never Do you belong to any clubs or organized social groups?: no Panel score (0-1 are the most socially isolated patients): 0 What type of physical activity do you participate in: walking Duration: 15-30 minutes/day Frequency: 5-6 times per week Maryam/Druze: Cheondoism Special maryam needs: No Seatbelt use: always Helmet use: Yes Helmet use: always Drive intox or ride w/intox catering truck driver: No Do you feel safe at home: Yes Do you feel safe in your relationship?: Yes
[2025-04-21 10:28] LABS: Troponin I < 4 ng/L (<or=76)
== END 2025-04-21 10:31 | disposition home or self-care (01) ==
PROVIDERS: Emergency Provider Student in an Organized Health Care Education/Training Program; PCP Physician Assistant
DX: R07.9 Chest pain, unspecified (principal); Z60.8 Other problems related to social environment; M79.605 Pain in left leg; R06.02 Shortness of breath; Z79.01 Long term (current) use of anticoagulants
CPT/HCPCS: 36415; 71275; 80053; 82805; 93005; 96360; 99285; 83880; 84484; 85025; 85610; 85730; 93010; 93971; 99284; J3490

== ENCOUNTER 2025-04-25 07:35 | Emergency (ER) | payer OTHER, SELFPAY ==
[2025-04-25 07:44] VITALS: BP 128/86; PULSE 110; RESP 20; TEMP 36.7; O2SAT 92
[2025-04-25 08:07] VITALS: RESP 14
--- NOTE | 2025-04-25 08:12 | W.ED.GENAD ---
Discharge Plan Disposition Patient Disposition: Home Condition: Stable Discharge Details Clinical Impression: Pain in right leg, Varicose vein of leg Primary Care Provider: Sanjana Pritchett ED Provider: Lester Bundy Home Meds and New Rx's Prescriptions: Continued gabapentin 300 mg capsule 300 mg PO BID Qty: 180 3RF omeprazole 40 mg capsule,delayed release(DR/EC) 40 mg PO DAILY Qty: 90 3RF lorazepam 1 mg tablet 1 mg PO DAILY PRN (Reason: anxiety) Qty: 10 0RF Rx Instructions: Use when considering ER visit cyclobenzaprine 10 mg tablet 10 mg PO TID PRN (Reason: muscle spasm) Qty: 30 3RF Eliquis 5 mg tablet 5 mg PO BID Qty: 60 6RF methadone 10 mg/5 mL solution 100 mg PO QAM calcitriol 0.5 mcg capsule 1 mcg PO .COMPLEX Qty: 270 3RF Rx Instructions: 1 mcg orally t2 tabs qam and 1 tab QHS; folic acid 1 mg tablet 1 mg PO DAILY Qty: 30 6RF calcium carbonate [Tums] 200 mg calcium (500 mg) tablet,chewable 2,000 mg PO BID prochlorperazine maleate 5 mg tablet 5 mg PO TID PRN (Reason: acute nausea) Qty: 30 0RF polyethylene glycol 3350 17 gram powder in packet 17 g PO BID PRN magnesium gluconate 27 mg magnesium (500 mg) tablet 500 mg PO BID Rx Instructions: takes 500mg QAM and 1000mg QHS diclofenac sodium 1 % gel 2 g topical QID Qty: 50 0RF Rx Instructions: apply to single elbow, wrist or hand; for hand includes palm/fingers/back of hand famotidine 20 mg tablet 20 mg PO BID Qty: 30 0RF sucralfate 1 gram tablet 1 g PO QACHS Qty: 90 0RF ondansetron 4 mg tablet,disintegrating 4 mg PO Q8H PRNQty: 20 0RF clonazepam 1 mg tablet 1 mg PO BID Qty: 10 0RF calcitriol 0.5 mcg capsule See Rx Instructions .ROUTE .COMPLEX Qty: 21 0RF Rx Instructions: take 2 capsules by mouth qAM and 1 tab qHS per day prochlorperazine maleate [Compazine] 10 mg tablet 10 mg PO Q6H PRNQty: 10 0RF lorazepam [Ativan] 1 mg tablet 1 mg PO DAILY PRNQty: 4 0RF Discharge Instructions Instructions: Varicose Veins (DC) Additional Instructions: Please apply warm compresses as discussed to veinous varicosity on your right thigh. Please follow-up with your primary care physician. Call today. Return to the emergency department immediately for any worsening or new concerning symptoms including increased pain, inflammation, swelling. Stand Alone Forms: Portal Information HPI General Mode of arrival: ambulatory. Date/Time Provider Initiated Documentation: 04/25/25 08:03. Limitations to Documentation: no limitations. Information obtained by: patient. HPI Narrative: HISTORY OF PRESENT ILLNESS 29-year-old male with multiple medical problems, history of anxiety, DVT, on Eliquis, presenting with leg pain. The patient reports that the pain began yesterday on the side of his thigh. Last night, he noticed a small purple spot on his veins, which is tender to touch. The pain extends from this spot up into his groin area. He has no associated swelling or inflammation. No numbness or tingling. Patient has no change in chronic intermittent shortness of breath or chest pain. The patient states he has been compliant with his Eliquis medication and has not missed any doses. The patient expresses concern about walking with his current condition. Patient notes that he has been walking a lot and feels pain could be related to muscle discomfort. On further questioning he has noticed the purple spot has been present for several weeks, but it only recently started causing discomfort. Related Data Home Medications Medication Instructions Recorded Confirmed calcium carbonate (Tums) 2,000 mg PO BID 02/02/23 04/25/25 methadone 10 mg/5 mL oral solution 100 mg PO QAM 06/12/23 04/25/25 prochlorperazine maleate 5 mg 5 mg PO TID PRN acute nausea #30 09/06/23 04/25/25 tablet tabs gabapentin 300 mg capsule 300 mg PO BID #180 caps 06/01/24 04/25/25 calcitriol 0.5 mcg capsule 1 mcg (2 x 0.5 mcg) PO .COMPLEX 06/29/24 04/25/25 #270 caps omeprazole 40 mg capsule,delayed 40 mg PO DAILY #90 caps 07/27/24 04/25/25 release polyethylene glycol 3350 17 gram 17 g PO BID PRN 10/15/24 04/25/25 oral powder packet lorazepam 1 mg tablet 1 mg PO DAILY PRN anxiety #10 tabs 10/19/24 04/25/25 cyclobenzaprine 10 mg tablet 10 mg PO TID PRN muscle spasm #30 11/16/24 04/25/25 tabs magnesium gluconate 27 mg 500 mg PO BID 01/30/25 04/25/25 magnesium (500 mg) tablet diclofenac sodium 1 % topical gel 2 g topical QID #50 grams 02/03/25 04/25/25 apixaban 5 mg tablet (Eliquis) 5 mg PO BID #60 tabs 03/08/25 04/25/25 famotidine 20 mg tablet 20 mg PO BID #30 tabs 03/15/25 04/25/25 ondansetron 4 mg disintegrating 4 mg PO Q8H PRN #20 tabs 03/15/25 04/25/25 tablet sucralfate 1 gram tablet 1 g PO QACHS #90 tabs 03/15/25 04/25/25 prochlorperazine maleate 10 mg 10 mg PO Q6H PRN #10 tabs 03/16/25 04/25/25 tablet (Compazine) folic acid 1 mg tablet 1 mg PO DAILY #30 tabs 03/17/25 04/25/25 lorazepam 1 mg tablet (Ativan) 1 mg PO DAILY PRN #4 tabs 03/29/25 04/25/25 clonazepam 1 mg tablet 1 mg PO BID #10 tabs 04/03/25 04/25/25 calcitriol 0.5 mcg capsule See Rx Instructions .Route 04/12/25 04/25/25 .COMPLEX #21 caps Previous Rx's Medication Instructions Recorded prochlorperazine maleate 5 mg 5 mg PO TID PRN acute nausea #30 09/06/23 tablet tabs gabapentin 300 mg capsule 300 mg PO BID #180 caps 06/01/24 calcitriol 0.5 mcg capsule 1 mcg (2 x 0.5 mcg) PO .COMPLEX 06/29/24 #270 caps omeprazole 40 mg capsule,delayed 40 mg PO DAILY #90 caps 07/27/24 release lorazepam 1 mg tablet 1 mg PO DAILY PRN anxiety #10 tabs 10/19/24 cyclobenzaprine 10 mg tablet 10 mg PO TID PRN muscle spasm #30 11/16/24 tabs diclofenac sodium 1 % topical gel 2 g topical QID #50 grams 02/03/25 apixaban 5 mg tablet (Eliquis) 5 mg PO BID #60 tabs 03/08/25 famotidine 20 mg tablet 20 mg PO BID #30 tabs 03/15/25 ondansetron 4 mg disintegrating 4 mg PO Q8H PRN #20 tabs 03/15/25 tablet sucralfate 1 gram tablet 1 g PO QACHS #90 tabs 03/15/25 prochlorperazine maleate 10 mg 10 mg PO Q6H PRN #10 tabs 03/16/25 tablet (Compazine) folic acid 1 mg tablet 1 mg PO DAILY #30 tabs 03/17/25 lorazepam 1 mg tablet (Ativan) 1 mg PO DAILY PRN #4 tabs 03/29/25 clonazepam 1 mg tablet 1 mg PO BID #10 tabs 04/03/25 calcitriol 0.5 mcg capsule See Rx Instructions .Route 04/12/25 .COMPLEX #21 caps Allergies Allergy/AdvReac Type Severity Reaction Status Date / Time Penicillins Allergy Skin Rash Verified 04/25/25 07:46 marijuana (cannabis) AdvReac Severe Paranoia Verified 04/25/25 07:46 amoxicillin AdvReac Intermediate Nausea Verified 04/25/25 07:46 codeine AdvReac Intermediate pass out Verified 04/25/25 07:46 dextromethorphan (From AdvReac Intermediate got Verified 04/25/25 07:46 NyQuil) really hot and sweaty doxylamine (From NyQuil) AdvReac Intermediate got Verified 04/25/25 07:46 really hot and sweaty pseudoephedrine (From NyQuil) AdvReac Intermediate got Verified 04/25/25 07:46 really hot and sweaty General Stated Complaint: Vascular ADRIANA: 3 Review of Systems All systems reviewed & are unremarkable except as noted in HPI and below Constitutional Constitutional: Denies fever(s) Cardiovascular Cardiovascular: Reports as per HPI Respiratory Respiratory: Reports as per HPI Exam Const General: cooperative and no acute distress HENMT Mouth: moist mucous membranes Eyes Conjunctivae: normal conjunctivae Sclera: normal sclerae Neck Neck: trachea midline and supple Resp Auscultation: clear to auscultation bilaterally, no rales, no rhonchi and no wheezes Cardio Rate: regular rate and not tachycardic Rhythm: regular rhythm Heart Sounds: no gallops, no murmurs and no rubs GI Palpation: soft, not firm, no guarding, no masses, not rigid and nontender Skin General skin exam: no rashes or lesions noted Neuro General: patient alert, patient awake and tone normal Extrem General: no edema Right lower extremity: hip/thigh Details: other (small quarter size venous varicosity ); no tenderness, no swelling, no ecchymosis, no crepitus and no unusual warmth and foot Details: no edema and vascular exam Details: dorsalis pedis pulse present (1+); no unusual warmth Left lower extremity: foot Details: vascular exam Details: dorsalis pedis pulse present (1+) Psych Appearance: grossly normal Mental Status: mental status grossly normal Course Vital Signs Vital signs: Vital Signs Temperature 36.7 C 04/25/25 07:44 Pulse 110 H 04/25/25 07:44 Respiratory Rate 20 04/25/25 07:44 Blood Pressure 128/86 04/25/25 07:44 Pulse Oximetry 92 04/25/25 07:44 Temperature 36.7 C 04/25/25 07:44 Temperature Source Oral 04/25/25 07:44 Pulse 110 H 04/25/25 07:44 Respiratory Rate 20 04/25/25 07:44 Blood Pressure 128/86 04/25/25 07:44 Blood Pressure Position Sitting 04/25/25 07:44 Pulse Oximetry 92 04/25/25 07:44 Oxygen Delivery Method Room Air 04/25/25 07:44 Oxygen Flow Rate 0 04/25/25 07:44 Pain Level 5 04/25/25 07:44 Medical Decision Making ASSESSMENT AND PLAN Initial Assessment: Pain in the right thigh and groin area with varicose vein right thigh, no swelling, compliant with Eliquis, strong pulses, stable vital signs. Differential Diagnosis: -Varicose vein - Superficial thrombophlebitis: Pain in thigh and groin, purple veins, no leg swelling. Warm compresses, gentle massage, continue Eliquis, follow-up with primary care physician ED Course: Final Assessment: Symptoms suggest varicose vein, question superficial thrombophlebitis. No signs of DVT. Patient compliant with Eliquis. Advised warm compresses, gentle massage, continue Eliquis, follow-up with primary care physician. Clinical Impression: - Superficial thrombophlebitis - Varicose vein Disposition: - Discharge: Discharged with outpatient follow-up. - Follow-Up: Follow up with primary care physician. Patient Education: Warm compresses, gentle massage, continue Eliquis, return to ER if symptoms worsen or if swelling, redness, or increased warmth develop. This document was written with the assistance of FATMATA Espino. The patient consented to its use. Quality:SDOH Health Related Social Needs: Health related social needs lonely/isolated Health related social needs details patient here frequently due to anxiety. PFSH All Active Problems Varicose vein of leg (Acute) Pain in right leg (Acute) Breath shortness (Acute) Diarrhea (Acute) Weakness (Acute) Encounter for medication refill (Acute) Orthostasis (Acute) Anemia (Chronic) Atypical chest pain (Acute) Atypical chest pain (Acute) Panic attack (Acute) Abdominal pain (Acute) Normocytic anemia (Acute) Coughing up blood (Acute) Hyperhomocysteinemia (Acute) Pulmonary infiltrates (Acute) Snoring (Acute) Pleural effusion (Acute) Rt groin pain (Acute) Rash (Acute) Shortness of breath (Acute) Edema, peripheral (Acute) Anxiety (Chronic) Chest discomfort (Acute) Pulmonary embolism and infarction (Acute) Left pulmonary infiltrate on CXR (Acute) Bilateral pulmonary embolism (Acute) Tenderness of neck (Acute) Right elbow pain (Acute) Acute leg pain (Acute) Bronchitis (Acute) Well adult health check (Acute) Obstructive sleep apnea (Chronic) Metabolic dysfunction-associated fatty liver disease (MAFLD) (Acute) Fatty liver (Acute) IBS (irritable bowel syndrome) (Chronic) Obesity (Chronic) Migraine with aura (Acute) Testicle lump (Acute) Pes anserine bursitis (Acute) Left-sided Floewr's palsy (Acute) Opiate dependence, continuous (Acute) 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 Possible 2' Methadone, Clnzpm (?). Surg eval (+)/No further action. History of electrolyte imbalance (Acute) Neck pain on left side (Acute) with shoulder, upper back pain.. torticollis, radiating into left hip/leg Pulmonary nodule 1 cm or greater in diameter (Chronic) Therapeutic opioid induced constipation (Acute) Sphincter of Oddi dysfunction (Chronic) Abnormal CT scan, kidney (Acute) Intrahepatic bile duct dilation (Acute) Common bile duct dilatation (Chronic) Has been dilated for quite some time, now more-so. Normal LFTs. Known gallstones. Depression (Chronic) Elevated parathyroid hormone (Acute) Family history of coronary arteriosclerosis (Chronic) Father of VT at 50, mother had VT at 42 Severe anxiety with panic (Chronic) Medical History Multiple endocrine neoplasia type I CKD (chronic kidney disease) stage 2, GFR 60-89 ml/min GFR 64-65, with Hx FLORESITA and GFR < 45 Primary hyperparathyroidism Complex medical condition Serious electrolyte imbalances, with gynecomastia, possible MEN Dx, CKD and anemia with baseline anxiety and Hx PTSD. Hypocalcemia Anxiety Depression Hyperlipidemia Family history of multiple endocrine neoplasia, type 1 PTSD (post-traumatic stress disorder) Per pt. states no triggers at this time. Surgical History History of laparoscopic cholecystectomy (~11/2023) H/O parathyroidectomy Family History Mother Anxiety Asthma Depression Sister Anxiety Depression Father Cancer lung & stomach Depression Diabetes Hypertension MEN 1 (multiple endocrine neoplasia) Social History Smoking/Tobacco Use Status: Never Smoking risk assessment performed?: Yes Alcohol Intake: never Drug use: Current Sobriety Substance use type: former substance user, crack/cocaine, heroin and painkillers Details: stopped using substances for the past 4 years Adopted: No Caregiver/Support person: No Foster care: No Household members: none Housing: apartment Number of Children: 0 Communication Needs: None Education Level: high school Do you need help understanding health information?: Never current occupation: [employer] Pets and animals: Yes (Ally) Pets and animals: dog(s) Sexually active: No Do you think of yourself as: straight/heterosexual Current gender identity: male What is your relationship status?: How often do you talk on the phone with friends or family?: twice per week How often do you get together with friends or relatives?: never Do you belong to any clubs or organized social groups?: no Panel score (0-1 are the most socially isolated patients): 0 What type of physical activity do you participate in: walking Duration: 15-30 minutes/day Frequency: 5-6 times per week Maryam/Zoroastrianism: Zoroastrian Special maryam needs: No Seatbelt use: always Helmet use: Yes Helmet use: always Drive intox or ride w/intox line haul driver: No Do you feel safe at home: Yes Do you feel safe in your relationship?: Yes
[2025-04-25 08:25] VITALS: PULSE 120; O2SAT 97
== END 2025-04-25 08:27 | disposition home or self-care (01) ==
PROVIDERS: Emergency Provider Student in an Organized Health Care Education/Training Program; PCP Physician Assistant
DX: M79.604 Pain in right leg (principal); I83.90 Asymptomatic varicose veins of unspecified lower extremity; Z79.01 Long term (current) use of anticoagulants; Z60.8 Other problems related to social environment
CPT/HCPCS: 99282; 99281

== ENCOUNTER → 2025-04-26 07:38 | Outpatient (CLI) | payer OTHER, SELFPAY ==
--- NOTE | 2025-04-26 | DI.MRI_ITS ---
Exam(s) MR ABDOMEN WO/W EXAM: MR ABDOMEN WO/W CLINICAL HISTORY: [id number], F/U CT BILATERAL RENAL DENSITIES TECHNIQUE: Multiplanar multisequence MRI was performed with both pre and post contrast infused sequences. Contrast injected sequences were performed following IV injection of 20 cc of Dotarem. COMPARISON: MR MR ABDOMEN WO from 09/10/[address] ABDOMEN PELVIS W from 04/10/[address] CHEST PE CTA from 04/21/2025 FINDINGS: VISUALIZED LUNG BASES: No pleural effusions evident. There is no ascites evident. LIVER: There no focal hepatic lesions. BILIARY: The gallbladder is surgically absent. There is some dilatation of the biliary tree both intra and extrahepatic. The common hepatic duct diameter is 9- 10 mm. The mid-lower CBD diameter is upper normal-6 mm. There is no obvious calculus nor mass in the lower CBD. PANCREAS: There is no evidence of pancreatic mass nor dilatation of the pancreatic duct.No peripancreatic fluid collections. SPLEEN: Spleen is not enlarged and there are no intrasplenic lesions.Splenic and portal veins are patent ADRENALS: There are no significant adrenal masses. KIDNEYS: There are benign cortical cysts noted in both kidneys. There is a single cortical cyst in the posterior aspect of the right kidney measuring 11 x 11 mm, not exhibiting internal enhancement. There are no solid lesions in the right kidney. No hydronephrosis. In the left kidney there are 4 small simple nonenhancing cortical cysts measuring up to 1 cm. The largest finding is in the superior pole of the left kidney and has the appearance of a nonenhancing mildly septated cyst without nodularity. Septal thickness is less than 2 mm. No mural calcification. This measures 2.5 by 2.5 by 2.0 cm. No solid lesion in the left kidney. No hydronephrosis. ABDOMINAL AORTA: Not enlarged and there is no significant para-aortic adenopathy. ANTERIOR ABDOMINAL WALL/GI: There is no evidence of significant anterior abdominal wall hernia in the field of view of this study.Is no evidence of obvious bowel obstruction. OSSEOUS: There are no lytic osseous lesions in the field of view of this study. IMPRESSION: 1. The gallbladder surgically absent. There is mild dilatation of the biliary tree without evidence of of an obstructing calculus or obvious mass in the lower CBD. Correlation with appropriate blood work recommended. 2. There are benign cortical cysts in both kidneys, more numerous on the left side. The largest is in the superior pole the left kidney and measures 25 x 25 x 20 mm and exhibiting 3 thin internal septations. This is a Bosniak II cyst. DATA REPOSITORY:
[2025-04-26] MEDS: Gadoterate meglumine 20 ML VIAL IVP (12:45)
== END ==
PROVIDERS: PCP Physician Assistant; Visit Provider Physician Assistant
DX: N28.1 Cyst of kidney, acquired (principal)
CPT/HCPCS: 74183

== ENCOUNTER 2025-04-28 08:45 | Emergency (ER) | payer OTHER, SELFPAY ==
[2025-04-28 08:49] VITALS: BP 125/83; PULSE 107; RESP 18; TEMP 36.6; O2SAT 97
[2025-04-28 08:51] VITALS: BP 125/83; PULSE 107; RESP 18; TEMP 36.6; O2SAT 97
--- NOTE | 2025-04-28 08:52 | W.ED.GENAD ---
Discharge Plan Disposition Patient Disposition: Home Condition: Stable Discharge Details Clinical Impression: Arm pain, right Primary Care Provider: Sanjana Pritchett ED Provider: Luh Tsai Home Meds and New Rx's Prescriptions: Continued gabapentin 300 mg capsule 300 mg PO BID Qty: 180 3RF omeprazole 40 mg capsule,delayed release(DR/EC) 40 mg PO DAILY Qty: 90 3RF lorazepam 1 mg tablet 1 mg PO DAILY PRN (Reason: anxiety) Qty: 10 0RF Rx Instructions: Use when considering ER visit cyclobenzaprine 10 mg tablet 10 mg PO TID PRN (Reason: muscle spasm) Qty: 30 3RF Eliquis 5 mg tablet 5 mg PO BID Qty: 60 6RF methadone 10 mg/5 mL solution 100 mg PO QAM calcitriol 0.5 mcg capsule 1 mcg PO .COMPLEX Qty: 270 3RF Rx Instructions: 1 mcg orally t2 tabs qam and 1 tab QHS; folic acid 1 mg tablet 1 mg PO DAILY Qty: 30 6RF calcium carbonate [Tums] 200 mg calcium (500 mg) tablet,chewable 2,000 mg PO BID prochlorperazine maleate 5 mg tablet 5 mg PO TID PRN (Reason: acute nausea) Qty: 30 0RF polyethylene glycol 3350 17 gram powder in packet 17 g PO BID PRN magnesium gluconate 27 mg magnesium (500 mg) tablet 500 mg PO BID Rx Instructions: takes 500mg QAM and 1000mg QHS diclofenac sodium 1 % gel 2 g topical QID Qty: 50 0RF Rx Instructions: apply to single elbow, wrist or hand; for hand includes palm/fingers/back of hand famotidine 20 mg tablet 20 mg PO BID Qty: 30 0RF sucralfate 1 gram tablet 1 g PO QACHS Qty: 90 0RF ondansetron 4 mg tablet,disintegrating 4 mg PO Q8H PRNQty: 20 0RF clonazepam 1 mg tablet 1 mg PO BID Qty: 10 0RF calcitriol 0.5 mcg capsule See Rx Instructions .ROUTE .COMPLEX Qty: 21 0RF Rx Instructions: take 2 capsules by mouth qAM and 1 tab qHS per day prochlorperazine maleate [Compazine] 10 mg tablet 10 mg PO Q6H PRNQty: 10 0RF lorazepam [Ativan] 1 mg tablet 1 mg PO DAILY PRNQty: 4 0RF Discharge Instructions Additional Instructions: Apply warm compresses to your right arm and you may apply some topical Voltaren or Motrin gel for discomfort There is no evidence of DVT on your extremity ultrasound today Please return should you have new or worsening complaint If your symptoms last longer than 7 days recommendation is that you have a repeat ultrasound Stand Alone Forms: Portal Information Referrals: Sanjana Pritchett [Primary Care Provider, Medicine] HPI General Date/Time Provider Initiated Documentation: 04/28/25 08:48. HPI Narrative: This 29-year-old male with past medical history of pulmonary embolism MEN1 status post parathyroidectomy atypical chest pain hypocalcemia presents with report of right upper extremity swelling and tenderness post IV placement 3 days prior to arrival with MRI. He states despite applying warm compresses his pain has persisted. He denies any new chest pain or shortness of breath or any additional complaints at this time. Related Data Home Medications Medication Instructions Recorded Confirmed calcium carbonate (Tums) 2,000 mg PO BID 02/02/23 04/28/25 methadone 10 mg/5 mL oral solution 100 mg PO QAM 06/12/23 04/28/25 prochlorperazine maleate 5 mg 5 mg PO TID PRN acute nausea #30 09/06/23 04/28/25 tablet tabs gabapentin 300 mg capsule 300 mg PO BID #180 caps 06/01/24 04/28/25 calcitriol 0.5 mcg capsule 1 mcg (2 x 0.5 mcg) PO .COMPLEX 06/29/24 04/28/25 #270 caps omeprazole 40 mg capsule,delayed 40 mg PO DAILY #90 caps 07/27/24 04/28/25 release polyethylene glycol 3350 17 gram 17 g PO BID PRN 10/15/24 04/28/25 oral powder packet lorazepam 1 mg tablet 1 mg PO DAILY PRN anxiety #10 tabs 10/19/24 04/28/25 cyclobenzaprine 10 mg tablet 10 mg PO TID PRN muscle spasm #30 11/16/24 04/28/25 tabs magnesium gluconate 27 mg 500 mg PO BID 01/30/25 04/28/25 magnesium (500 mg) tablet diclofenac sodium 1 % topical gel 2 g topical QID #50 grams 02/03/25 04/28/25 apixaban 5 mg tablet (Eliquis) 5 mg PO BID #60 tabs 03/08/25 04/28/25 famotidine 20 mg tablet 20 mg PO BID #30 tabs 03/15/25 04/28/25 ondansetron 4 mg disintegrating 4 mg PO Q8H PRN #20 tabs 03/15/25 04/28/25 tablet sucralfate 1 gram tablet 1 g PO QACHS #90 tabs 03/15/25 04/28/25 prochlorperazine maleate 10 mg 10 mg PO Q6H PRN #10 tabs 03/16/25 04/28/25 tablet (Compazine) folic acid 1 mg tablet 1 mg PO DAILY #30 tabs 03/17/25 04/28/25 lorazepam 1 mg tablet (Ativan) 1 mg PO DAILY PRN #4 tabs 03/29/25 04/28/25 clonazepam 1 mg tablet 1 mg PO BID #10 tabs 04/03/25 04/28/25 calcitriol 0.5 mcg capsule See Rx Instructions .Route 04/12/25 04/28/25 .COMPLEX #21 caps Previous Rx's Medication Instructions Recorded prochlorperazine maleate 5 mg 5 mg PO TID PRN acute nausea #30 09/06/23 tablet tabs gabapentin 300 mg capsule 300 mg PO BID #180 caps 06/01/24 calcitriol 0.5 mcg capsule 1 mcg (2 x 0.5 mcg) PO .COMPLEX 06/29/24 #270 caps omeprazole 40 mg capsule,delayed 40 mg PO DAILY #90 caps 07/27/24 release lorazepam 1 mg tablet 1 mg PO DAILY PRN anxiety #10 tabs 10/19/24 cyclobenzaprine 10 mg tablet 10 mg PO TID PRN muscle spasm #30 11/16/24 tabs diclofenac sodium 1 % topical gel 2 g topical QID #50 grams 02/03/25 apixaban 5 mg tablet (Eliquis) 5 mg PO BID #60 tabs 03/08/25 famotidine 20 mg tablet 20 mg PO BID #30 tabs 03/15/25 ondansetron 4 mg disintegrating 4 mg PO Q8H PRN #20 tabs 03/15/25 tablet sucralfate 1 gram tablet 1 g PO QACHS #90 tabs 03/15/25 prochlorperazine maleate 10 mg 10 mg PO Q6H PRN #10 tabs 03/16/25 tablet (Compazine) folic acid 1 mg tablet 1 mg PO DAILY #30 tabs 03/17/25 lorazepam 1 mg tablet (Ativan) 1 mg PO DAILY PRN #4 tabs 03/29/25 clonazepam 1 mg tablet 1 mg PO BID #10 tabs 04/03/25 calcitriol 0.5 mcg capsule See Rx Instructions .Route 04/12/25 .COMPLEX #21 caps Allergies Allergy/AdvReac Type Severity Reaction Status Date / Time Penicillins Allergy Skin Rash Verified 04/28/25 08:51 marijuana (cannabis) AdvReac Severe Paranoia Verified 04/28/25 08:51 amoxicillin AdvReac Intermediate Nausea Verified 04/28/25 08:51 codeine AdvReac Intermediate pass out Verified 04/28/25 08:51 dextromethorphan (From AdvReac Intermediate got Verified 04/28/25 08:51 NyQuil) really hot and sweaty doxylamine (From NyQuil) AdvReac Intermediate got Verified 04/28/25 08:51 really hot and sweaty pseudoephedrine (From NyQuil) AdvReac Intermediate got Verified 04/28/25 08:51 really hot and sweaty General Stated Complaint: GenMedical ADRIANA: 4 Exam Narrative Exam Narrative: Alert and oriented 29-year-old male in no acute distress, no palpable tendon no palpable swelling or mass appreciated, distal pulse intact, no overlying erythema or crepitus. No rashes or lesions noted no respiratory distress. Course Vital Signs Vital signs: Vital Signs Temperature 36.6 C 04/28/25 08:49 Pulse 107 H 04/28/25 08:49 Respiratory Rate 18 04/28/25 08:49 Blood Pressure 125/83 04/28/25 08:49 Pulse Oximetry 97 04/28/25 08:49 Temperature 36.6 C 04/28/25 08:51 Pulse 107 H 04/28/25 08:51 Respiratory Rate 18 04/28/25 08:51 Blood Pressure 125/83 04/28/25 08:51 Pulse Oximetry 97 04/28/25 08:51 Medical Decision Making Results: Right upper extremity DVT study radiology interpretation of my review does not show acute abnormality Assessment and plan: Patient presenting with right upper extremity pain post MRI contrast infusion several days ago. Patient's biggest concern is possible DVT. He is encouraged to apply Voltaren gel and take Tylenol as needed for pain and warm compresses. Ultrasound does not show evidence of acute DVT. Return precautions reviewed and patient expressed understanding Quality:SDOH Health Related Social Needs: Health related social needs lonely/isolated Health related social needs details patient here frequently due to anxiety. PFSH All Active Problems (Updated 04/28/25 @ 10:24 by ANDREW Arriaga) Arm pain, right (Acute) Varicose vein of leg (Acute) Pain in right leg (Acute) Breath shortness (Acute) Diarrhea (Acute) Weakness (Acute) Encounter for medication refill (Acute) Orthostasis (Acute) Anemia (Chronic) Atypical chest pain (Acute) Atypical chest pain (Acute) Panic attack (Acute) Hyperhomocysteinemia (Acute) Pulmonary infiltrates (Acute) Snoring (Acute) Pleural effusion (Acute) Rt groin pain (Acute) Rash (Acute) Shortness of breath (Acute) Edema, peripheral (Acute) Anxiety (Chronic) Chest discomfort (Acute) Pulmonary embolism and infarction (Acute) Left pulmonary infiltrate on CXR (Acute) Bilateral pulmonary embolism (Acute) Tenderness of neck (Acute) Right elbow pain (Acute) Acute leg pain (Acute) Bronchitis (Acute) Well adult health check (Acute) Obstructive sleep apnea (Chronic) Metabolic dysfunction-associated fatty liver disease (MAFLD) (Acute) Fatty liver (Acute) IBS (irritable bowel syndrome) (Chronic) Obesity (Chronic) Migraine with aura (Acute) Testicle lump (Acute) Pes anserine bursitis (Acute) Left-sided Flower's palsy (Acute) Opiate dependence, continuous (Acute) 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 Possible 2' Methadone, Clnzpm (?). Surg eval (+)/No further action. History of electrolyte imbalance (Acute) Neck pain on left side (Acute) with shoulder, upper back pain.. torticollis, radiating into left hip/leg Pulmonary nodule 1 cm or greater in diameter (Chronic) Therapeutic opioid induced constipation (Acute) Sphincter of Oddi dysfunction (Chronic) Abnormal CT scan, kidney (Acute) Intrahepatic bile duct dilation (Acute) Common bile duct dilatation (Chronic) Has been dilated for quite some time, now more-so. Normal LFTs. Known gallstones. 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 Hypocalcemia Anxiety Depression Hyperlipidemia Family history of multiple endocrine neoplasia, type 1 PTSD (post-traumatic stress disorder) Per pt. states no triggers at this time. Surgical History History of laparoscopic cholecystectomy (~11/2023) H/O parathyroidectomy Family History Mother Anxiety Asthma Depression Sister Anxiety Depression Father Cancer lung & stomach Depression Diabetes Hypertension MEN 1 (multiple endocrine neoplasia) Social History Smoking/Tobacco Use Status: Never Smoking risk assessment performed?: Yes Alcohol Intake: never Drug use: Current Sobriety Substance use type: former substance user, crack/cocaine, heroin and painkillers Details: stopped using substances for the past 4 years Adopted: No Caregiver/Support person: No Foster care: No Household members: none Housing: apartment Number of Children: 0 Communication Needs: None Education Level: high school Do you need help understanding health information?: Never current occupation: [employer] Pets and animals: Yes (Ally) Pets and animals: dog(s) Sexually active: No Do you think of yourself as: straight/heterosexual Current gender identity: male What is your relationship status?: How often do you talk on the phone with friends or family?: twice per week How often do you get together with friends or relatives?: never Do you belong to any clubs or organized social groups?: no Panel score (0-1 are the most socially isolated patients): 0 What type of physical activity do you participate in: walking Duration: 15-30 minutes/day Frequency: 5-6 times per week Maryam/Islam: L[employer] Day Special maryam needs: No Seatbelt use: always Helmet use: Yes Helmet use: always 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
--- NOTE | 2025-04-28 09:30 | DI.US_ITS ---
Exam(s) US UPPER EXTREMITY VENOUS RT EXAM: US UPPER EXTREMITY VENOUS RT CLINICAL HISTORY: pain and swelling upper arm, iv TECHNIQUE: GRAYSCALE, COLOR, DOPPLER IMAGING OF THE VENOUS SYSTEM OF THE UPPER EXTREMITY-BILATERAL COMPARISON: US US LOWER EXTREMITY VENOUS LT from 04/21/2025 FINDINGS: Basilic vein: Patent. Normal color-flow and normal compression and augmentation properties. Brachial vein(s):Patent. Normal color flow. Normal compression and augmentation properties. Cephalic vein:Patent. Normal color flow. Normal compression and augmentation properties. Axillary vein: Patent. Normal color flow. Normal compression and augmentation properties. Visualized subclavian vein: Patent. No obvious intraluminal thrombus. IMPRESSION: 1. No evidence of venous thrombosis in the right upper extremity. 2. DATA REPOSITORY:
[2025-04-28 10:49] VITALS: BP 112/66; PULSE 91; RESP 18; RESP 20; O2SAT 98
== END 2025-04-28 19:32 | disposition home or self-care (01) ==
PROVIDERS: Emergency Provider Physician Assistant; PCP Physician Assistant
DX: M79.601 Pain in right arm (principal)
CPT/HCPCS: 99283; 99284; 93971

== ENCOUNTER 2025-04-29 16:39 | Emergency (ER) | payer OTHER, SELFPAY ==
[2025-04-29] VITALS (14 sets, daily range): BP systolic 117–136; BP diastolic 61–72; PULSE 79–114; RESP 13–26; TEMP 36.8; O2SAT 93–99
--- NOTE | 2025-04-29 16:30 | RT.EKG_ITS ---
APPROVED REPORT Exam: Resting ECG Reason for Exam: Patient Location: E HR:103 bpm ECG Measurements Heart Rate 103 AXIS NC 164 P 40 QRSd 95 QRS 29 QT 358 T 37 QTc 468 Conclusion Sinus tachycardia...rate> 99 No STEMI
[2025-04-29] MEDS: Normal Saline 1,000 ML 1000 ML IV (17:26)
--- NOTE | 2025-04-29 17:45 | DI.RAD_ITS ---
Exam(s) XR CHEST 2V PA LATERAL EXAM: XR CHEST 2V PA LATERAL CLINICAL HISTORY: cough, fever TECHNIQUE: 2D digital imaging was performed. Two views. COMPARISON: CT CT CHEST PE CTA from 04/21/2025 FINDINGS: HEART: Normal size. Aorta: Not dilated. PULMONARY VASCULATURE: Normal. MEDIASTINUM: Unremarkable. LUNGS: Clear. PLEURAL SPACE: No pleural effusion or pneumothorax. BONE:Unremarkable for age. SOFT TISSUES: Unremarkable. IMPRESSION: No acute abnormality. DATA REPOSITORY: RADIATION DOSE DELIVERED:
[2025-04-29 17:50] LABS: Magnesium 1.7 mg/dL (1.6-2.6)
[2025-04-29 17:52] LABS: ALT 28 U/L (10-49); AST 31 U/L (<34); Albumin 4.0 g/dL (3.4-5.0); Alkaline Phosphatase 135 U/L (46-116); Anion Gap 8.2 mmol/L (3-11); BUN 11 mg/dL (9-23); Bilirubin, Total 0.20 mg/dL (0.2-1.2); CO2 30.8 mmol/L (20.0-31.0); Calcium 9.4 mg/dL (8.3-10.6); Chloride 103 mmol/L (98-107); Glucose 82 mg/dL (74-106); Potassium 3.4 mmol/L (3.5-5.1); Sodium 142 mmol/L (136-145); Total Protein 7.6 g/dL (5.7-8.2)
[2025-04-29 17:53] LABS: Troponin I < 3 ng/L (<54)
--- NOTE | 2025-04-29 18:06 | W.ED.GENAD ---
Discharge Plan Disposition Patient Disposition: Home Discharge Details Clinical Impression: Chest pain, History of fever Primary Care Provider: Sanjana Pritchett ED Provider: Jamir Matson Home Meds and New Rx's Prescriptions: No Action gabapentin 300 mg capsule 300 mg PO BID Qty: 180 3RF omeprazole 40 mg capsule,delayed release(DR/EC) 40 mg PO DAILY Qty: 90 3RF lorazepam 1 mg tablet 1 mg PO DAILY PRN (Reason: anxiety) Qty: 10 0RF Rx Instructions: Use when considering ER visit cyclobenzaprine 10 mg tablet 10 mg PO TID PRN (Reason: muscle spasm) Qty: 30 3RF Eliquis 5 mg tablet 5 mg PO BID Qty: 60 6RF methadone 10 mg/5 mL solution 100 mg PO QAM calcitriol 0.5 mcg capsule 1 mcg PO .COMPLEX Qty: 270 3RF Rx Instructions: 1 mcg orally t2 tabs qam and 1 tab QHS; folic acid 1 mg tablet 1 mg PO DAILY Qty: 30 6RF calcium carbonate [Tums] 200 mg calcium (500 mg) tablet,chewable 2,000 mg PO BID prochlorperazine maleate 5 mg tablet 5 mg PO TID PRN (Reason: acute nausea) Qty: 30 0RF polyethylene glycol 3350 17 gram powder in packet 17 g PO BID PRN magnesium gluconate 27 mg magnesium (500 mg) tablet 500 mg PO BID Rx Instructions: takes 500mg QAM and 1000mg QHS diclofenac sodium 1 % gel 2 g topical QID Qty: 50 0RF Rx Instructions: apply to single elbow, wrist or hand; for hand includes palm/fingers/back of hand famotidine 20 mg tablet 20 mg PO BID Qty: 30 0RF sucralfate 1 gram tablet 1 g PO QACHS Qty: 90 0RF ondansetron 4 mg tablet,disintegrating 4 mg PO Q8H PRNQty: 20 0RF clonazepam 1 mg tablet 1 mg PO BID Qty: 10 0RF calcitriol 0.5 mcg capsule See Rx Instructions .ROUTE .COMPLEX Qty: 21 0RF Rx Instructions: take 2 capsules by mouth qAM and 1 tab qHS per day prochlorperazine maleate [Compazine] 10 mg tablet 10 mg PO Q6H PRNQty: 10 0RF lorazepam [Ativan] 1 mg tablet 1 mg PO DAILY PRNQty: 4 0RF Discharge Instructions Instructions: Chest Pain (DC) Additional Instructions: Please follow-up with your primary care provider regarding your visit to the emergency department today. Be sure to discuss results of all test performed here today to include radiology, and laboratory testing as well as results for any pending cultures. Should your symptoms worsen, or if you develop new concerning symptoms, please return immediately emergency department for further evaluation. Stand Alone Forms: Portal Information Discharge Data Discharge Date/Time-TO BE ENTERED AT DEPARTURE: 04/29/25 19:20 HPI General Date/Time Provider Initiated Documentation: 04/29/25 16:45. HPI Narrative: MDM/Narrative: 29-year-old male history of PE on Eliquis, recurrent chest pain, presents for evaluation of chest pain for reported history of fever. Vital signs notable for mild hypertension, mild tachycardia. Given reported infectious symptoms will screen patient for pneumonia, COVID, flu, RSV, will obtain screening labs as well. Less suspicious of ACS however will obtain troponin and EKG to screen. ED course: EKG is nonischemic, troponin is negative, other than mild hypokalemia, labs are reassuring. Patient is feeling better, and is requesting discharge home. Patient stable for discharge at this time. Clinical impression: Chest pain History of fever Tachycardia Disposition: Home HPI: 29-year-old male past medical history of PE on Eliquis, presents for evaluation of chest pain, with associated fever reported to be 101 at home over the past several days. Denies any cough, vomiting, diarrhea, or any other concerning symptoms. ROS: Negative besides as mentioned above Exam: Gen: A&O NAD HEENT: NCAT, EOMI, not icteric. External ears normal. No rhinorrhea. Moist mucous membranes. Neck: Supple, full range of motion, no observable masses, No meningeal sign. Lungs: No Respiratory distress. CV: RRR, no edema. Abdomen: Soft, nondistended, No rebound tenderness. MSK: No joint swelling, no redness. Skin: No rashes, petechiae, lesions. Normal color per patient. Neuro: Normal Gait, Grossly intact. Psych: Appropriate for situation. Rhythm: Sinus tachycardia Rate: 103 [place]: Normal axis Intervals: Normal intervals Other findings: No acute ST segment or T wave changes to suggest acute ischemia. Labs: Laboratory Tests Range/Units 04/29/25 04/29/25 04/29/25 17:16 18:07 18:17 WBC (4.4-10.8) 10^3/uL 10.31 RBC (4.36-5.78) 10^6/uL 3.68 L Hgb (13.5-17.5) g/dL 8.8 L Hct (40.0-50.0) % 29.4 L MCV (80-95) fL 80 MCH (27.0-33.0) pg 23.9 L MCHC (32.0-36.0) % 29.9 L RDW (11.8-14.1) % 17.2 H Plt Count (130-400) 10^3/uL 393 MPV (8.0-11.0) fL 10.6 Immature Gran % % 0.2 Neutrophils % % 69.1 Lymphocytes % % 21.6 Monocytes % % 7.3 Eosinophils % % 1.4 Basophils % % 0.4 Nucleated RBC % (0.0-0.3) % 0.0 Absolute Neutrophils (1.2-6.7) 10^3/uL 7.13 H Absolute Lymphocytes (1.2-3.4) 10^3/uL 2.23 Absolute Monocytes (0.1-0.8) 10^3/uL 0.75 Absolute Eosinophils (0.0-0.7) 10^3/uL 0.14 Absolute Basophils (0.0-0.2) 10^3/uL 0.04 VBG Lactate (<or=2.0) mmol/L 1.5 Sodium (136-145) mmol/L 142 Potassium (3.5-5.1) mmol/L 3.4 L Chloride (98-107) mmol/L 103 Carbon Dioxide (20.0-31.0) mmol/L 30.8 Anion Gap (3-11) mmol/L 8.2 BUN (9-23) mg/dL 11 Creatinine (0.73-1.18) mg/dL 1.5 H Est GFR (CKD-EPI 2020) (mL/min/1.73m2) 55.67 Glucose (74-106) mg/dL 82 Calcium (8.3-10.6) mg/dL 9.4 Magnesium (1.6-2.6) mg/dL 1.7 Total Bilirubin (0.2-1.2) mg/dL 0.20 AST (<34) U/L 31 ALT (10-49) U/L 28 Alkaline Phosphatase (46-116) U/L 135 H Troponin I (<54) ng/L < 3 Total Protein (5.7-8.2) g/dL 7.6 Albumin (3.4-5.0) g/dL 4.0 Urine Color (Yellow) Yellow Urine Clarity (Clear) Clear Urine pH (5-8) 7.5 Ur Specific Walsh (1.005-1.025) 1.020 Urine Protein (Neg-Trace) mg/dL Negative Urine Ketones (Negative) mg/dL Negative Urine Blood (Negative) Negative Urine Nitrite (Negative) Negative Urine Bilirubin (Negative) Negative Urine Urobilinogen (Up to 0.2) mg/dL 0.2 Ur Leukocyte Esterase (Negative) Negative Urine Glucose (Negative) mg/dL Negative COVID-19 Source Nasopharynx SARS-CoV-2 (PCR) (Negative) Negative Influenza Type A (PCR) (Negative) Negative Influenza Type B (PCR) (Negative) Negative RSV (PCR) (Negative) Negative Range/Units 04/29/25 18:19 WBC (4.4-10.8) 10^3/uL RBC (4.36-5.78) 10^6/uL Hgb (13.5-17.5) g/dL Hct (40.0-50.0) % MCV (80-95) fL MCH (27.0-33.0) pg MCHC (32.0-36.0) % RDW (11.8-14.1) % Plt Count (130-400) 10^3/uL MPV (8.0-11.0) fL Immature Gran % % Neutrophils % % Lymphocytes % % Monocytes % % Eosinophils % % Basophils % % Nucleated RBC % (0.0-0.3) % Absolute Neutrophils (1.2-6.7) 10^3/uL Absolute Lymphocytes (1.2-3.4) 10^3/uL Absolute Monocytes (0.1-0.8) 10^3/uL Absolute Eosinophils (0.0-0.7) 10^3/uL Absolute Basophils (0.0-0.2) 10^3/uL VBG Lactate (<or=2.0) mmol/L Sodium (136-145) mmol/L Potassium (3.5-5.1) mmol/L Chloride (98-107) mmol/L Carbon Dioxide (20.0-31.0) mmol/L Anion Gap (3-11) mmol/L BUN (9-23) mg/dL Creatinine (0.73-1.18) mg/dL Est GFR (CKD-EPI 2020) (mL/min/1.73m2) Glucose (74-106) mg/dL Calcium (8.3-10.6) mg/dL Magnesium (1.6-2.6) mg/dL Total Bilirubin (0.2-1.2) mg/dL AST (<34) U/L ALT (10-49) U/L Alkaline Phosphatase (46-116) U/L Troponin I (<54) ng/L < 3 Total Protein (5.7-8.2) g/dL Albumin (3.4-5.0) g/dL Urine Color (Yellow) Urine Clarity (Clear) Urine pH (5-8) Ur Specific Walsh (1.005-1.025) Urine Protein (Neg-Trace) mg/dL Urine Ketones (Negative) mg/dL Urine Blood (Negative) Urine Nitrite (Negative) Urine Bilirubin (Negative) Urine Urobilinogen (Up to 0.2) mg/dL Ur Leukocyte Esterase (Negative) Urine Glucose (Negative) mg/dL COVID-19 Source SARS-CoV-2 (PCR) (Negative) Influenza Type A (PCR) (Negative) Influenza Type B (PCR) (Negative) RSV (PCR) (Negative) Radiology: Exam(s) XR CHEST 2V PA LATERAL EXAM: XR CHEST 2V PA LATERAL CLINICAL HISTORY: cough, fever TECHNIQUE: 2D digital imaging was performed. Two views. COMPARISON: CT CT CHEST PE CTA from 04/21/2025 FINDINGS: HEART: Normal size. Aorta: Not dilated. PULMONARY VASCULATURE: Normal. MEDIASTINUM: Unremarkable. LUNGS: Clear. PLEURAL SPACE: No pleural effusion or pneumothorax. BONE:Unremarkable for age. SOFT TISSUES: Unremarkable. IMPRESSION: No acute abnormality. DATA REPOSITORY: RADIATION DOSE DELIVERED: Related Data Home Medications Medication Instructions Recorded Confirmed calcium carbonate (Tums) 2,000 mg PO BID 02/02/23 04/29/25 methadone 10 mg/5 mL oral solution 100 mg PO QAM 06/12/23 04/29/25 prochlorperazine maleate 5 mg 5 mg PO TID PRN acute nausea #30 09/06/23 04/29/25 tablet tabs gabapentin 300 mg capsule 300 mg PO BID #180 caps 06/01/24 04/29/25 calcitriol 0.5 mcg capsule 1 mcg (2 x 0.5 mcg) PO .COMPLEX 06/29/24 04/29/25 #270 caps omeprazole 40 mg capsule,delayed 40 mg PO DAILY #90 caps 07/27/24 04/29/25 release polyethylene glycol 3350 17 gram 17 g PO BID PRN 10/15/24 04/29/25 oral powder packet lorazepam 1 mg tablet 1 mg PO DAILY PRN anxiety #10 tabs 10/19/24 04/29/25 cyclobenzaprine 10 mg tablet 10 mg PO TID PRN muscle spasm #30 11/16/24 04/29/25 tabs magnesium gluconate 27 mg 500 mg PO BID 01/30/25 04/29/25 magnesium (500 mg) tablet diclofenac sodium 1 % topical gel 2 g topical QID #50 grams 02/03/25 04/29/25 apixaban 5 mg tablet (Eliquis) 5 mg PO BID #60 tabs 03/08/25 04/29/25 famotidine 20 mg tablet 20 mg PO BID #30 tabs 03/15/25 04/29/25 ondansetron 4 mg disintegrating 4 mg PO Q8H PRN #20 tabs 03/15/25 04/29/25 tablet sucralfate 1 gram tablet 1 g PO QACHS #90 tabs 03/15/25 04/29/25 prochlorperazine maleate 10 mg 10 mg PO Q6H PRN #10 tabs 03/16/25 04/29/25 tablet (Compazine) folic acid 1 mg tablet 1 mg PO DAILY #30 tabs 03/17/25 04/29/25 lorazepam 1 mg tablet (Ativan) 1 mg PO DAILY PRN #4 tabs 03/29/25 04/29/25 clonazepam 1 mg tablet 1 mg PO BID #10 tabs 04/03/25 04/29/25 calcitriol 0.5 mcg capsule See Rx Instructions .Route 04/12/25 04/29/25 .COMPLEX #21 caps Previous Rx's Medication Instructions Recorded prochlorperazine maleate 5 mg 5 mg PO TID PRN acute nausea #30 09/06/23 tablet tabs gabapentin 300 mg capsule 300 mg PO BID #180 caps 06/01/24 calcitriol 0.5 mcg capsule 1 mcg (2 x 0.5 mcg) PO .COMPLEX 06/29/24 #270 caps omeprazole 40 mg capsule,delayed 40 mg PO DAILY #90 caps 07/27/24 release lorazepam 1 mg tablet 1 mg PO DAILY PRN anxiety #10 tabs 10/19/24 cyclobenzaprine 10 mg tablet 10 mg PO TID PRN muscle spasm #30 11/16/24 tabs diclofenac sodium 1 % topical gel 2 g topical QID #50 grams 02/03/25 apixaban 5 mg tablet (Eliquis) 5 mg PO BID #60 tabs 03/08/25 famotidine 20 mg tablet 20 mg PO BID #30 tabs 03/15/25 ondansetron 4 mg disintegrating 4 mg PO Q8H PRN #20 tabs 03/15/25 tablet sucralfate 1 gram tablet 1 g PO QACHS #90 tabs 03/15/25 prochlorperazine maleate 10 mg 10 mg PO Q6H PRN #10 tabs 03/16/25 tablet (Compazine) folic acid 1 mg tablet 1 mg PO DAILY #30 tabs 03/17/25 lorazepam 1 mg tablet (Ativan) 1 mg PO DAILY PRN #4 tabs 03/29/25 clonazepam 1 mg tablet 1 mg PO BID #10 tabs 04/03/25 calcitriol 0.5 mcg capsule See Rx Instructions .Route 04/12/25 .COMPLEX #21 caps Allergies Allergy/AdvReac Type Severity Reaction Status Date / Time Penicillins Allergy Skin Rash Verified 04/29/25 16:46 marijuana (cannabis) AdvReac Severe Paranoia Verified 04/29/25 16:46 amoxicillin AdvReac Intermediate Nausea Verified 04/29/25 16:46 codeine AdvReac Intermediate pass out Verified 04/29/25 16:46 dextromethorphan (From AdvReac Intermediate got Verified 04/29/25 16:46 NyQuil) really hot and sweaty doxylamine (From NyQuil) AdvReac Intermediate got Verified 04/29/25 16:46 really hot and sweaty pseudoephedrine (From NyQuil) AdvReac Intermediate got Verified 04/29/25 16:46 really hot and sweaty General Stated Complaint: Chest Pain ADRIANA: 3 Course Vital Signs Vital signs: Vital Signs Temperature 36.8 C 04/29/25 16:41 Pulse 107 H 04/29/25 16:41 Respiratory Rate 20 04/29/25 16:41 Blood Pressure 117/72 04/29/25 16:41 Pulse Oximetry 93 04/29/25 16:41 Temperature 36.8 C 04/29/25 16:41 Pulse 107 H 04/29/25 16:41 Respiratory Rate 20 04/29/25 16:41 Respiratory Effort Normal 04/29/25 17:31 Respiratory Depth Normal 04/29/25 17:31 Respiratory Pattern Normal 04/29/25 17:31 Blood Pressure 117/72 04/29/25 16:41 Blood Pressure Position Sitting 04/29/25 16:41 Pulse Oximetry 93 04/29/25 16:41 Oxygen Delivery Method Room Air 04/29/25 16:41 Oxygen Flow Rate 0 04/29/25 16:41 Lab/Test Results Lab/Test Results: Laboratory Tests Range/Units 04/29/25 17:16 VBG Lactate (<or=2.0) mmol/L 1.5 Sodium (136-145) mmol/L 142 Potassium (3.5-5.1) mmol/L 3.4 L Chloride (98-107) mmol/L 103 Carbon Dioxide (20.0-31.0) mmol/L 30.8 Anion Gap (3-11) mmol/L 8.2 BUN (9-23) mg/dL 11 Creatinine (0.73-1.18) mg/dL 1.5 H Est GFR (CKD-EPI 2020) (mL/min/1.73m2) 55.67 Glucose (74-106) mg/dL 82 Calcium (8.3-10.6) mg/dL 9.4 Magnesium (1.6-2.6) mg/dL 1.7 Total Bilirubin (0.2-1.2) mg/dL 0.20 AST (<34) U/L 31 ALT (10-49) U/L 28 Alkaline Phosphatase (46-116) U/L 135 H Troponin I (<54) ng/L < 3 Total Protein (5.7-8.2) g/dL 7.6 Albumin (3.4-5.0) g/dL 4.0 Medical Decision Making Quality:SDOH Health Related Social Needs: Health related social needs lonely/isolated Health related social needs details patient here frequently due to anxiety. PFSH All Active Problems (Updated 04/29/25 @ 19:14 by Jamir Matson MD) History of fever (Acute) Chest pain (Acute) Arm pain, right (Acute) Varicose vein of leg (Acute) Pain in right leg (Acute) Breath shortness (Acute) Diarrhea (Acute) Weakness (Acute) Encounter for medication refill (Acute) Orthostasis (Acute) Anemia (Chronic) Atypical chest pain (Acute) Atypical chest pain (Acute) Hyperhomocysteinemia (Acute) Pulmonary infiltrates (Acute) Snoring (Acute) Pleural effusion (Acute) Rt groin pain (Acute) Rash (Acute) Shortness of breath (Acute) Edema, peripheral (Acute) Anxiety (Chronic) Chest discomfort (Acute) Pulmonary embolism and infarction (Acute) Left pulmonary infiltrate on CXR (Acute) Bilateral pulmonary embolism (Acute) Tenderness of neck (Acute) Right elbow pain (Acute) Acute leg pain (Acute) Bronchitis (Acute) Well adult health check (Acute) Obstructive sleep apnea (Chronic) Metabolic dysfunction-associated fatty liver disease (MAFLD) (Acute) Fatty liver (Acute) IBS (irritable bowel syndrome) (Chronic) Obesity (Chronic) Migraine with aura (Acute) Testicle lump (Acute) Pes anserine bursitis (Acute) Left-sided Flower's palsy (Acute) Opiate dependence, continuous (Acute) 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 Possible 2' Methadone, Clnzpm (?). Surg eval (+)/No further action. History of electrolyte imbalance (Acute) Neck pain on left side (Acute) with shoulder, upper back pain.. torticollis, radiating into left hip/leg Pulmonary nodule 1 cm or greater in diameter (Chronic) Therapeutic opioid induced constipation (Acute) Sphincter of Oddi dysfunction (Chronic) Abnormal CT scan, kidney (Acute) Intrahepatic bile duct dilation (Acute) Common bile duct dilatation (Chronic) Has been dilated for quite some time, now more-so. Normal LFTs. Known gallstones. 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 Hypocalcemia Anxiety Depression Hyperlipidemia Family history of multiple endocrine neoplasia, type 1 PTSD (post-traumatic stress disorder) Per pt. states no triggers at this time. Surgical History History of laparoscopic cholecystectomy (~11/2023) H/O parathyroidectomy Family History Mother Anxiety Asthma Depression Sister Anxiety Depression Father Cancer lung & stomach Depression Diabetes Hypertension MEN 1 (multiple endocrine neoplasia) Social History Smoking/Tobacco Use Status: Never Smoking risk assessment performed?: Yes Alcohol Intake: never Drug use: Current Sobriety Substance use type: former substance user, crack/cocaine, heroin and painkillers Details: stopped using substances for the past 4 years Adopted: No Caregiver/Support person: No Foster care: No Household members: none Housing: apartment Number of Children: 0 Communication Needs: None Education Level: high school Do you need help understanding health information?: Never current occupation: [employer] Pets and animals: Yes (Ally) Pets and animals: dog(s) Sexually active: No Do you think of yourself as: straight/heterosexual Current gender identity: male What is your relationship status?: How often do you talk on the phone with friends or family?: twice per week How often do you get together with friends or relatives?: never Do you belong to any clubs or organized social groups?: no Panel score (0-1 are the most socially isolated patients): 0 What type of physical activity do you participate in: walking Duration: 15-30 minutes/day Frequency: 5-6 times per week Maryam/Samaritan: Religion Special maryam needs: No Seatbelt use: always Helmet use: Yes Helmet use: always Drive intox or ride w/intox catering truck driver: No Do you feel safe at home: Yes Do you feel safe in your relationship?: Yes
[2025-04-29] MEDS: Potassium Chloride 20 MEQ TABCR 40 MEQ PO (18:25)
[2025-04-29 18:47] LABS: Troponin I < 3 ng/L (<54)
[2025-04-29 18:58] LABS: Abs Immature Grans 0.02 10^3/uL (0.0-0.06); HCT 29.4 % (40.0-50.0); HGB 8.8 g/dL (13.5-17.5); Immature Grans % 0.2 %; MCH 23.9 pg (27.0-33.0); MCHC 29.9 % (32.0-36.0); MCV 80 fL (80-95); MPV 10.6 fL (8.0-11.0); Platelet Count 393 10^3/uL (130-400); RBC 3.68 10^6/uL (4.36-5.78); RDW 17.2 % (11.8-14.1); RDW-SD 49.5 fL; WBC 10.31 10^3/uL (4.4-10.8)
[2025-04-29 19:06] LABS: COVID-19 PCR Negative (Negative); RSV PCR Negative (Negative)
[2025-04-29 19:26] LABS: Glucose Negative (Negative)
== END 2025-04-29 19:20 | disposition home or self-care (01) ==
PROVIDERS: Emergency Provider General Practice; PCP Physician Assistant
DX: R07.9 Chest pain, unspecified (principal); R00.0 Tachycardia, unspecified; I10 Essential (primary) hypertension
CPT/HCPCS: 99284; 99285; 80053; 87637; 93005; 96360; 96361; 71046; 81003; 83605; 83735; 84484; 85025; 93010

== ENCOUNTER 2025-05-01 17:50 | Emergency (ER) | payer OTHER, SELFPAY ==
[2025-05-01] VITALS (10 sets, daily range): BP systolic 121–139; BP diastolic 63–80; PULSE 77–122; RESP 13–18; TEMP 36.6; O2SAT 92–99
--- NOTE | 2025-05-01 17:45 | RT.EKG_ITS ---
APPROVED REPORT Exam: Resting ECG Reason for Exam: Chest Pain/High Blood Pressure Patient Location: E HR:121 bpm ECG Measurements Heart Rate 121 AXIS AR 154 P 38 QRSd 93 QRS 1 QT 326 T 27 QTc 463 Conclusion Sinus tachycardia...rate> 99 No STEMI
--- NOTE | 2025-05-01 18:15 | DI.RAD_ITS ---
Exam(s) XR CHEST 2V PA LATERAL EXAM: XR CHEST 2V PA LATERAL CLINICAL HISTORY: Chest pain TECHNIQUE: 2D digital imaging was performed. Two views. COMPARISON: No exams were available for comparison FINDINGS: HEART: Normal size. Aorta: Not dilated. PULMONARY VASCULATURE: Normal. MEDIASTINUM: Unremarkable. LUNGS: Clear. PLEURAL SPACE: No pleural effusion or pneumothorax. BONE:Unremarkable for age. SOFT TISSUES: Unremarkable. IMPRESSION: No acute abnormality. The preliminary [facility] report was reviewed. DATA REPOSITORY: RADIATION DOSE DELIVERED:
--- NOTE | 2025-05-01 18:22 | W.ED.GENAD ---
Discharge Plan Disposition Patient Disposition: Home Discharge Details Clinical Impression: Chest pain Primary Care Provider: Sanjana Pritchett ED Provider: Richy Oro Home Meds and New Rx's Prescriptions: No Action gabapentin 300 mg capsule 300 mg PO BID Qty: 180 3RF omeprazole 40 mg capsule,delayed release(DR/EC) 40 mg PO DAILY Qty: 90 3RF lorazepam 1 mg tablet 1 mg PO DAILY PRN (Reason: anxiety) Qty: 10 0RF Rx Instructions: Use when considering ER visit cyclobenzaprine 10 mg tablet 10 mg PO TID PRN (Reason: muscle spasm) Qty: 30 3RF Eliquis 5 mg tablet 5 mg PO BID Qty: 60 6RF methadone 10 mg/5 mL solution 100 mg PO QAM calcitriol 0.5 mcg capsule 1 mcg PO .COMPLEX Qty: 270 3RF Rx Instructions: 1 mcg orally t2 tabs qam and 1 tab QHS; folic acid 1 mg tablet 1 mg PO DAILY Qty: 30 6RF calcium carbonate [Tums] 200 mg calcium (500 mg) tablet,chewable 2,000 mg PO BID polyethylene glycol 3350 17 gram powder in packet 17 g PO BID PRN magnesium gluconate 27 mg magnesium (500 mg) tablet 500 mg PO BID Rx Instructions: takes 500mg QAM and 1000mg QHS diclofenac sodium 1 % gel 2 g topical QID Qty: 50 0RF Rx Instructions: apply to single elbow, wrist or hand; for hand includes palm/fingers/back of hand famotidine 20 mg tablet 20 mg PO BID Qty: 30 0RF sucralfate 1 gram tablet 1 g PO QACHS Qty: 90 0RF ondansetron 4 mg tablet,disintegrating 4 mg PO Q8H PRNQty: 20 0RF clonazepam 1 mg tablet 1 mg PO BID Qty: 10 0RF calcitriol 0.5 mcg capsule See Rx Instructions .ROUTE .COMPLEX Qty: 21 0RF Rx Instructions: take 2 capsules by mouth qAM and 1 tab qHS per day prochlorperazine maleate [Compazine] 10 mg tablet 10 mg PO Q6H PRNQty: 10 0RF Discharge Instructions Instructions: Chest Pain, Adult ED Additional Instructions: Have your blood pressure rechecked by her primary care provider. Stand Alone Forms: Portal Information Referrals: Sanjana Pritchett [Primary Care Provider, Medicine] - 1 week HPI General Date/Time Provider Initiated Documentation: 05/01/25 18:14. HPI Narrative: This is a 29-year-old male presenting to the emergency department with a chief complaint of chest pain. Patient has a longstanding history of atypical chest pain complicated by pulmonary emboli, currently on Eliquis. Patient also has hyperhomocysteinemia, anxiety, IBS, opiate dependence, inflammatory arthritis, family history of coronary artery disease. Patient states that he was having some family conflict earlier today and developed some chest pain on the left side of his chest. He describes it as sharp then progressing to pressure. The pain was waxing and waning, improving with rest. He felt slightly short of breath. No diaphoresis. No nausea. He has not had any problems with any recent illnesses. No fevers or rash. No cough or congestion. No dysuria or hematuria. No diarrhea or constipation. No injuries. Related Data Home Medications Medication Instructions Recorded Confirmed calcium carbonate (Tums) 2,000 mg PO BID 02/02/23 05/01/25 methadone 10 mg/5 mL oral solution 100 mg PO QAM 06/12/23 05/01/25 gabapentin 300 mg capsule 300 mg PO BID #180 caps 06/01/24 05/01/25 calcitriol 0.5 mcg capsule 1 mcg (2 x 0.5 mcg) PO .COMPLEX 06/29/24 05/01/25 #270 caps omeprazole 40 mg capsule,delayed 40 mg PO DAILY #90 caps 07/27/24 05/01/25 release polyethylene glycol 3350 17 gram 17 g PO BID PRN 10/15/24 05/01/25 oral powder packet lorazepam 1 mg tablet 1 mg PO DAILY PRN anxiety #10 tabs 10/19/24 05/01/25 cyclobenzaprine 10 mg tablet 10 mg PO TID PRN muscle spasm #30 11/16/24 05/01/25 tabs magnesium gluconate 27 mg 500 mg PO BID 01/30/25 05/01/25 magnesium (500 mg) tablet diclofenac sodium 1 % topical gel 2 g topical QID #50 grams 02/03/25 05/01/25 apixaban 5 mg tablet (Eliquis) 5 mg PO BID #60 tabs 03/08/25 05/01/25 famotidine 20 mg tablet 20 mg PO BID #30 tabs 03/15/25 05/01/25 ondansetron 4 mg disintegrating 4 mg PO Q8H PRN #20 tabs 03/15/25 05/01/25 tablet sucralfate 1 gram tablet 1 g PO QACHS #90 tabs 03/15/25 05/01/25 prochlorperazine maleate 10 mg 10 mg PO Q6H PRN #10 tabs 03/16/25 05/01/25 tablet (Compazine) folic acid 1 mg tablet 1 mg PO DAILY #30 tabs 03/17/25 05/01/25 clonazepam 1 mg tablet 1 mg PO BID #10 tabs 04/03/25 05/01/25 calcitriol 0.5 mcg capsule See Rx Instructions .Route 04/12/25 05/01/25 .COMPLEX #21 caps Previous Rx's Medication Instructions Recorded gabapentin 300 mg capsule 300 mg PO BID #180 caps 06/01/24 calcitriol 0.5 mcg capsule 1 mcg (2 x 0.5 mcg) PO .COMPLEX 06/29/24 #270 caps omeprazole 40 mg capsule,delayed 40 mg PO DAILY #90 caps 07/27/24 release lorazepam 1 mg tablet 1 mg PO DAILY PRN anxiety #10 tabs 10/19/24 cyclobenzaprine 10 mg tablet 10 mg PO TID PRN muscle spasm #30 11/16/24 tabs diclofenac sodium 1 % topical gel 2 g topical QID #50 grams 02/03/25 apixaban 5 mg tablet (Eliquis) 5 mg PO BID #60 tabs 03/08/25 famotidine 20 mg tablet 20 mg PO BID #30 tabs 03/15/25 ondansetron 4 mg disintegrating 4 mg PO Q8H PRN #20 tabs 03/15/25 tablet sucralfate 1 gram tablet 1 g PO QACHS #90 tabs 03/15/25 prochlorperazine maleate 10 mg 10 mg PO Q6H PRN #10 tabs 03/16/25 tablet (Compazine) folic acid 1 mg tablet 1 mg PO DAILY #30 tabs 03/17/25 clonazepam 1 mg tablet 1 mg PO BID #10 tabs 04/03/25 calcitriol 0.5 mcg capsule See Rx Instructions .Route 04/12/25 .COMPLEX #21 caps Allergies Allergy/AdvReac Type Severity Reaction Status Date / Time Penicillins Allergy Skin Rash Verified 05/01/25 17:59 marijuana (cannabis) AdvReac Severe Paranoia Verified 05/01/25 17:59 amoxicillin AdvReac Intermediate Nausea Verified 05/01/25 17:59 codeine AdvReac Intermediate pass out Verified 05/01/25 17:59 dextromethorphan (From AdvReac Intermediate got Verified 05/01/25 17:59 NyQuil) really hot and sweaty doxylamine (From NyQuil) AdvReac Intermediate got Verified 05/01/25 17:59 really hot and sweaty pseudoephedrine (From NyQuil) AdvReac Intermediate got Verified 05/01/25 17:59 really hot and sweaty General Stated Complaint: Chest Pain ADRIANA: 3 Review of Systems All systems reviewed & are unremarkable except as noted in HPI and below Constitutional Constitutional: Reports system reviewed and no additional complaints, except as documented, Denies fever(s), Denies weakness and Denies weight loss Eyes Eyes: Denies blurry vision ENT Ears, Nose, Mouth, and Throat: Denies sore throat Cardiovascular Cardiovascular: Reports chest pain, Denies palpitations and Reports dyspnea Respiratory Respiratory: Denies cough, Reports dyspnea and Denies wheezing Gastrointestinal Gastrointestinal: Denies abdominal pain, Denies diarrhea, Denies nausea and Denies vomiting Genitourinary Genitourinary: Denies hematuria and Denies dysuria Musculoskeletal Musculoskeletal: Denies back pain, Denies arthralgias and Denies numbness Neurologic Neurologic: Denies numbness and Denies weakness Psychiatric Psychiatric: Denies suicidal ideation Endocrine Endocrine: Denies palpitations Allergic/Immunologic Allergic/Immunologic: Denies wheezing Exam Const General: no acute distress and well groomed [facility] Mouth: oral mucosae normal and moist mucous membranes Throat: posterior oropharynx normal Eyes Conjunctivae: conjunctivae normal Sclera: sclerae normal Neck Neck: full ROM and No JVD Resp Effort & Inspection: normal respiratory effort Auscultation: clear to auscultation bilaterally Cardio Rate: regular rate Rhythm: regular rhythm Heart Sounds: no murmurs GI Palpation: soft and nontender Skin General skin exam: no rashes or lesions noted Neuro General: patient alert and patient oriented x3 Extrem General: normal to inspection and full ROM Psych Appearance: grossly normal Mental Status: mental status grossly normal Speech and Movement: speech and movement normal Affect: normal affect Thought Process: normal Course Vital Signs Vital signs: Vital Signs Temperature 36.6 C 05/01/25 17:57 Pulse 122 H 05/01/25 17:57 Respiratory Rate 16 05/01/25 17:57 Blood Pressure 139/80 05/01/25 17:57 Pulse Oximetry 93 05/01/25 17:57 Temperature 36.6 C 05/01/25 17:57 Temperature Source Oral 05/01/25 17:57 Pulse 122 H 05/01/25 17:57 Respiratory Rate 16 05/01/25 18:04 Respiratory Effort Normal, Non-Labored 05/01/25 18:04 Respiratory Depth Normal 05/01/25 18:04 Respiratory Pattern Normal 05/01/25 18:04 Blood Pressure 139/80 05/01/25 17:57 Blood Pressure Position Sitting 05/01/25 17:57 Pulse Oximetry 93 05/01/25 17:57 Oxygen Delivery Method Room Air 05/01/25 17:57 Oxygen Flow Rate 0 05/01/25 17:57 Medical Decision Making This is a 29-year-old male well-known to this emergency department presenting with a chief complaint of chest pain. Patient was last seen here for similar 2 days ago. Old charts were reviewed and nursing notes were reviewed including a recent visit. Recent visit was negative for any findings. EKG reviewed by me shows sinus tachycardia at 121 bpm. VA interval is 154. QRS 93. QTc is 463. Patient was maintained on nurse monitoring with IV access. Labs reviewed by me are unremarkable, including troponin and D-dimer. Patient was reexamined and reinterviewed. He reports feeling much better. He will be discharged home with a plan to follow-up with his primary care. He was initially concerned about a high blood pressure at home although it has spontaneously improved here as has his initial tachycardia. I suspect that these abnormalities are secondary to the stress he recounted. He was advised to get his blood pressure rechecked by his primary care provider. Quality:SDOH Health Related Social Needs: Health related social needs lonely/isolated Health related social needs details patient here frequently due to anxiety. PFSH All Active Problems (Updated 05/01/25 @ 19:44 by Richy Oro MD) Chest pain (Acute) History of fever (Acute) Chest pain (Acute) Arm pain, right (Acute) Varicose vein of leg (Acute) Pain in right leg (Acute) Breath shortness (Acute) Diarrhea (Acute) Weakness (Acute) Encounter for medication refill (Acute) Orthostasis (Acute) Anemia (Chronic) Atypical chest pain (Acute) Atypical chest pain (Acute) Hyperhomocysteinemia (Acute) Pulmonary infiltrates (Acute) Snoring (Acute) Pleural effusion (Acute) Rt groin pain (Acute) Rash (Acute) Shortness of breath (Acute) Edema, peripheral (Acute) Anxiety (Chronic) Chest discomfort (Acute) Pulmonary embolism and infarction (Acute) Left pulmonary infiltrate on CXR (Acute) Bilateral pulmonary embolism (Acute) Tenderness of neck (Acute) Right elbow pain (Acute) Acute leg pain (Acute) Bronchitis (Acute) Well adult health check (Acute) Obstructive sleep apnea (Chronic) Metabolic dysfunction-associated fatty liver disease (MAFLD) (Acute) Fatty liver (Acute) IBS (irritable bowel syndrome) (Chronic) Obesity (Chronic) Migraine with aura (Acute) Testicle lump (Acute) Pes anserine bursitis (Acute) Left-sided Flower's palsy (Acute) Opiate dependence, continuous (Acute) 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 Possible 2' Methadone, Clnzpm (?). Surg eval (+)/No further action. History of electrolyte imbalance (Acute) Neck pain on left side (Acute) with shoulder, upper back pain.. torticollis, radiating into left hip/leg Pulmonary nodule 1 cm or greater in diameter (Chronic) Therapeutic opioid induced constipation (Acute) Sphincter of Oddi dysfunction (Chronic) Abnormal CT scan, kidney (Acute) Intrahepatic bile duct dilation (Acute) Common bile duct dilatation (Chronic) Has been dilated for quite some time, now more-so. Normal LFTs. Known gallstones. 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 Hypocalcemia Anxiety Depression Hyperlipidemia Family history of multiple endocrine neoplasia, type 1 PTSD (post-traumatic stress disorder) Per pt. states no triggers at this time. Surgical History History of laparoscopic cholecystectomy (~11/2023) H/O parathyroidectomy Family History Mother Anxiety Asthma Depression Sister Anxiety Depression Father Cancer lung & stomach Depression Diabetes Hypertension MEN 1 (multiple endocrine neoplasia) Social History Smoking/Tobacco Use Status: Never Smoking risk assessment performed?: Yes Alcohol Intake: never Drug use: Current Sobriety Substance use type: former substance user, crack/cocaine, heroin and painkillers Details: stopped using substances for the past 4 years Adopted: No Caregiver/Support person: No Foster care: No Household members: none Housing: apartment Number of Children: 0 Communication Needs: None Education Level: high school Do you need help understanding health information?: Never current occupation: [employer] Pets and animals: Yes (Ally) Pets and animals: dog(s) Sexually active: No Do you think of yourself as: straight/heterosexual Current gender identity: male What is your relationship status?: How often do you talk on the phone with friends or family?: twice per week How often do you get together with friends or relatives?: never Do you belong to any clubs or organized social groups?: no Panel score (0-1 are the most socially isolated patients): 0 What type of physical activity do you participate in: walking Duration: 15-30 minutes/day Frequency: 5-6 times per week Maryam/Yarsanism: Orthodox Special maryam needs: No Seatbelt use: always Helmet use: Yes Helmet use: always Drive intox or ride w/intox courtesy driver: No Do you feel safe at home: Yes Do you feel safe in your relationship?: Yes
[2025-05-01 18:28] LABS: Abs Immature Grans 0.02 10^3/uL (0.0-0.06); HCT 30.0 % (40.0-50.0); HGB 9.0 g/dL (13.5-17.5); Immature Grans % 0.2 %; MCH 23.7 pg (27.0-33.0); MCHC 30.0 % (32.0-36.0); MCV 79 fL (80-95); MPV 10.2 fL (8.0-11.0); Platelet Count 386 10^3/uL (130-400); RBC 3.79 10^6/uL (4.36-5.78); RDW 17.1 % (11.8-14.1); RDW-SD 48.8 fL; WBC 9.46 10^3/uL (4.4-10.8)
--- NOTE | 2025-05-01 18:41 | DI.VRAD_ITS ---
PROCEDURE INFORMATION: Exam: XR Chest Exam date and time: 05/01/2025 6:29 PM Age: 29 years old Clinical indication: Other: Unspecified; Chest pain TECHNIQUE: Imaging protocol: Radiologic exam of the chest. Views: 2 views. COMPARISON: CR XR CHEST 2V PA LATERAL 04/29/2025 5:42 PM FINDINGS: Lungs: Unremarkable. No consolidation. Pleural spaces: Unremarkable. No pleural effusion. No pneumothorax. Heart/Mediastinum: Unremarkable. No cardiomegaly. Bones/joints: Unremarkable. IMPRESSION: No evidence for acute abnormality in the chest. Dictated and Authenticated by: Ramona Moura MD. Orderin Preethi Lockhart MD
[2025-05-01 18:48] LABS: Anion Gap 6.6 mmol/L (3-11); BUN 8 mg/dL (9-23); CO2 32.4 mmol/L (20.0-31.0); Calcium 8.7 mg/dL (8.3-10.6); Chloride 101 mmol/L (98-107); Glucose 101 mg/dL (74-106); Potassium 3.5 mmol/L (3.5-5.1); Sodium 140 mmol/L (136-145)
[2025-05-01 18:49] LABS: Troponin I < 3 ng/L (<54)
[2025-05-01 18:58] LABS: D-Dimer 196 ng/mlFEU (<500)
[2025-05-01 19:43] LABS: Troponin I < 3 ng/L (<54)
== END 2025-05-01 19:50 | disposition home or self-care (01) ==
PROVIDERS: Emergency Provider Emergency Medicine; PCP Physician Assistant
DX: R07.9 Chest pain, unspecified (principal); Z60.8 Other problems related to social environment
CPT/HCPCS: 99283; 99284; 36415; 80048; 93005; 71046; 84484; 85025; 85379; 93010

== ENCOUNTER 2025-05-02 08:04 | Outpatient (CLI) | payer MEDICAID, SELFPAY ==
--- NOTE | 2025-05-04 10:53 | W.PFT ---
Date of service: 05/02/25 Time of Service: 08:10 Pulmonary Function Test Result Indications: Dyspnea Impression 1. Good patient effort was noted. ATS standards for reproducibility were met. 2. Normal spirometry. 3. Following the administration of a bronchodilator there was [] response 4. TLC was normal. No evidence of restrictive lung disease 5. DLCO was reduced at 69%, but corrected to 87% when adjusted for anemia, indicating normal alveolar gas exchange
== END 2025-05-02 08:05 | disposition home or self-care (01) ==
PROVIDERS: PCP Physician Assistant; Visit Provider Internal Medicine Pulmonary Disease
DX: R91.8 Other nonspecific abnormal finding of lung field (principal)
CPT/HCPCS: 94726; 94729; 94010

== ENCOUNTER 2025-05-04 06:56 | Emergency (ER) | payer OTHER, SELFPAY ==
[2025-05-04 07:01] VITALS: BP 136/78; PULSE 99; RESP 16; O2SAT 96
--- NOTE | 2025-05-04 07:15 | DI.US_ITS ---
Exam(s) US UPPER EXTREMITY VENOUS RT EXAM: US UPPER EXTREMITY VENOUS RT CLINICAL HISTORY: IV on friday, now anticubital pain, eval clot/absc TECHNIQUE: GRAYSCALE, COLOR, DOPPLER IMAGING OF THE VENOUS SYSTEM OF THE UPPER EXTREMITY-RIGHT COMPARISON: US US UPPER EXTREMITY VENOUS RT from 04/28/2025 FINDINGS: Basilic vein: Patent. Normal color-flow and normal compression and augmentation properties. Brachial vein(s):Patent. Normal color flow. Normal compression and augmentation properties. Cephalic vein:Patent. Normal color flow. Normal compression and augmentation properties. Axillary vein: Patent. Normal color flow. Normal compression and augmentation properties. Visualized subclavian vein: Patent. No obvious intraluminal thrombus. No abnormal focal fluid collection evident on the submitted images. IMPRESSION: 1. No evidence of venous thrombosis in the right upper extremity. 2. No evidence of discernible abscess. DATA REPOSITORY:
[2025-05-04] MEDS: Acetaminophen 500 MG TAB 1000 MG PO (07:49)
--- NOTE | 2025-05-04 07:50 | W.ED.GENAD ---
Discharge Plan Disposition Patient Disposition: Home Condition: Good Discharge Details Clinical Impression: Irritation of radial nerve Primary Care Provider: Sanjana Pritchett ED Provider: Richy Eagle Home Meds and New Rx's Prescriptions: No Action gabapentin 300 mg capsule 300 mg PO BID Qty: 180 3RF omeprazole 40 mg capsule,delayed release(DR/EC) 40 mg PO DAILY Qty: 90 3RF lorazepam 1 mg tablet 1 mg PO DAILY PRN (Reason: anxiety) Qty: 10 0RF Rx Instructions: Use when considering ER visit cyclobenzaprine 10 mg tablet 10 mg PO TID PRN (Reason: muscle spasm) Qty: 30 3RF Eliquis 5 mg tablet 5 mg PO BID Qty: 60 6RF methadone 10 mg/5 mL solution 100 mg PO QAM calcitriol 0.5 mcg capsule 1 mcg PO .COMPLEX Qty: 270 3RF Rx Instructions: 1 mcg orally t2 tabs qam and 1 tab QHS; folic acid 1 mg tablet 1 mg PO DAILY Qty: 30 6RF calcium carbonate [Tums] 200 mg calcium (500 mg) tablet,chewable 2,000 mg PO BID polyethylene glycol 3350 17 gram powder in packet 17 g PO BID PRN magnesium gluconate 27 mg magnesium (500 mg) tablet 500 mg PO BID Rx Instructions: takes 500mg QAM and 1000mg QHS diclofenac sodium 1 % gel 2 g topical QID Qty: 50 0RF Rx Instructions: apply to single elbow, wrist or hand; for hand includes palm/fingers/back of hand famotidine 20 mg tablet 20 mg PO BID Qty: 30 0RF sucralfate 1 gram tablet 1 g PO QACHS Qty: 90 0RF ondansetron 4 mg tablet,disintegrating 4 mg PO Q8H PRNQty: 20 0RF clonazepam 1 mg tablet 1 mg PO BID Qty: 10 0RF calcitriol 0.5 mcg capsule See Rx Instructions .ROUTE .COMPLEX Qty: 21 0RF Rx Instructions: take 2 capsules by mouth qAM and 1 tab qHS per day prochlorperazine maleate [Compazine] 10 mg tablet 10 mg PO Q6H PRNQty: 10 0RF Discharge Data Discharge Date/Time-TO BE ENTERED AT DEPARTURE: 05/04/25 10:36 HPI General Date/Time Provider Initiated Documentation: 05/04/25 07:13. HPI Narrative: 29 year with todayThitamy is a 29-year-old male with a past medical history significant for anxiety, depression, high cholesterol, men type I, multiple electrolyte abnormalities with subsequent parathyroidectomy on 03/26/2022 at [facility] [place], PTSD, GERD, cholecystectomy 12/07, bilateral pulmonary embolisms with left-sided pulmonary infarct (diagnosed 02/2025) now on apixaban who presents today for evaluation of right arm pain. Patient received an IV in the right arm 48 hours ago. Patient has had thousands of IVs, and denies any complications in the past but states that this time it was a very specific sudden electrical stabbing sensation that occurred while the IV was being placed. This only lasted for a short period of time, and then it went away on its own. There is no burning during infusion, or during other stages. Later that afternoon and evening the patient had mild pain and discomfort in the antecubital region on the right-hand side, and then this is continued over the next 48 hours. It worsens when he fully extends his arm/elbow. It is a shocking sensation and the stabbing sensation that goes down all the way of his lateral aspect of his forearm. He denies any other proximal pain. He denies any fever or chills. He has taken some Tylenol with minimal improvement. No other complaints at this time. No other modifying factors. Related Data Home Medications ?Medication ?Instructions ?Recorded ?Confirmed calcium carbonate (Tums) 2,000 mg PO BID 02/02/23 05/04/25 methadone 10 mg/5 mL oral solution 100 mg PO QAM 06/12/23 05/04/25 gabapentin 300 mg capsule 300 mg PO BID #180 caps 06/01/24 05/04/25 calcitriol 0.5 mcg capsule 1 mcg (2 x 0.5 mcg) PO .COMPLEX 06/29/24 05/04/25 #270 caps omeprazole 40 mg capsule,delayed 40 mg PO DAILY #90 caps 07/27/24 05/04/25 release polyethylene glycol 3350 17 gram 17 g PO BID PRN 10/15/24 05/04/25 oral powder packet lorazepam 1 mg tablet 1 mg PO DAILY PRN anxiety #10 tabs 10/19/24 05/04/25 cyclobenzaprine 10 mg tablet 10 mg PO TID PRN muscle spasm #30 11/16/24 05/04/25 tabs magnesium gluconate 27 mg 500 mg PO BID 01/30/25 05/04/25 magnesium (500 mg) tablet diclofenac sodium 1 % topical gel 2 g topical QID #50 grams 02/03/25 05/04/25 apixaban 5 mg tablet (Eliquis) 5 mg PO BID #60 tabs 03/08/25 05/04/25 famotidine 20 mg tablet 20 mg PO BID #30 tabs 03/15/25 05/04/25 ondansetron 4 mg disintegrating 4 mg PO Q8H PRN #20 tabs 03/15/25 05/04/25 tablet sucralfate 1 gram tablet 1 g PO QACHS #90 tabs 03/15/25 05/04/25 prochlorperazine maleate 10 mg 10 mg PO Q6H PRN #10 tabs 03/16/25 05/04/25 tablet (Compazine) folic acid 1 mg tablet 1 mg PO DAILY #30 tabs 03/17/25 05/04/25 clonazepam 1 mg tablet 1 mg PO BID #10 tabs 04/03/25 05/04/25 calcitriol 0.5 mcg capsule See Rx Instructions .Route 04/12/25 05/04/25 .COMPLEX #21 caps Previous Rx's ?Medication ?Instructions ?Recorded gabapentin 300 mg capsule 300 mg PO BID #180 caps 06/01/24 calcitriol 0.5 mcg capsule 1 mcg (2 x 0.5 mcg) PO .COMPLEX 06/29/24 #270 caps omeprazole 40 mg capsule,delayed 40 mg PO DAILY #90 caps 07/27/24 release lorazepam 1 mg tablet 1 mg PO DAILY PRN anxiety #10 tabs 10/19/24 cyclobenzaprine 10 mg tablet 10 mg PO TID PRN muscle spasm #30 11/16/24 tabs diclofenac sodium 1 % topical gel 2 g topical QID #50 grams 02/03/25 apixaban 5 mg tablet (Eliquis) 5 mg PO BID #60 tabs 03/08/25 famotidine 20 mg tablet 20 mg PO BID #30 tabs 03/15/25 ondansetron 4 mg disintegrating 4 mg PO Q8H PRN #20 tabs 03/15/25 tablet sucralfate 1 gram tablet 1 g PO QACHS #90 tabs 03/15/25 prochlorperazine maleate 10 mg 10 mg PO Q6H PRN #10 tabs 03/16/25 tablet (Compazine) folic acid 1 mg tablet 1 mg PO DAILY #30 tabs 03/17/25 clonazepam 1 mg tablet 1 mg PO BID #10 tabs 04/03/25 calcitriol 0.5 mcg capsule See Rx Instructions .Route 04/12/25 .COMPLEX #21 caps Allergies Allergy/AdvReac Type Severity Reaction Status Date / Time Penicillins Allergy Skin Rash Verified 05/04/25 07:03 marijuana (cannabis) AdvReac Severe Paranoia Verified 05/04/25 07:03 amoxicillin AdvReac Intermediate Nausea Verified 05/04/25 07:03 codeine AdvReac Intermediate pass out Verified 05/04/25 07:03 dextromethorphan (From AdvReac Intermediate got Verified 05/04/25 07:03 NyQuil) really hot and sweaty doxylamine (From NyQuil) AdvReac Intermediate got Verified 05/04/25 07:03 really hot and sweaty pseudoephedrine (From NyQuil) AdvReac Intermediate got Verified 05/04/25 07:03 really hot and sweaty General Stated Complaint: GenMedical ADRIANA: 4 Exam Narrative Exam Narrative: 1.Const: Well-nourished, Well-developed, appearing stated age 2.Eyes: PERRL, no conjunctival injection, and symmetrical lids. 3.ENT: Atraumatic external nose and ears. Moist MM. Neck: Symmetric, trachea midline, No thyromegaly. 4.CVS: +S1/S2, Peripheral pulses 2+ and equal in all extremities. Brisk capillary refill in all extremities. 5.RESP: Unlabored respiratory effort. Clear to auscultation bilaterally. No wheezes rales or rhonchi 6.GI: Soft, Nontender/Nondistended, No hepatosplenomegaly. No guarding or rebound. 7.MSK: Normocephalic/Atraumatic, Extremities w/o deformity or ttp No cyanosis or clubbing, Normal movement of all extremities. No erythema or warmth. No atypical swelling compared to the left. Mild pain with palpation of the antecubital region, but no localized redness. Mild pain with full extension, but still demonstrates good movement at the wrist and forearm and elbow. Pain is slightly more exacerbated with acvtive flexion of the hand at the wrist, but no other significant exacerbation to the other movements. 8.Skin: Warm, Dry. No rashes or lesions. 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 Sensation grossly intact, no focal neurologic deficits. 10.Psych: (AAO) x3. Appropriate mood and affect Course Vital Signs Vital signs: Vital Signs Pulse 99 H 05/04/25 07:01 Respiratory Rate 16 05/04/25 07:01 Blood Pressure 136/78 05/04/25 07:01 Pulse Oximetry 96 05/04/25 07:01 Pulse 99 H 05/04/25 07:01 Respiratory Rate 16 05/04/25 07:01 Blood Pressure 136/78 05/04/25 07:01 Pulse Oximetry 96 05/04/25 07:01 Oxygen Delivery Method Room Air 05/04/25 07:01 Oxygen Flow Rate 0 05/04/25 07:01 Pain Level 5 05/04/25 07:49 Medical Decision Making 29 year with todayThis is a 29-year-old male with a past medical history significant for anxiety, depression, high cholesterol, men type I, multiple electrolyte abnormalities with subsequent parathyroidectomy on 03/26/2022 at [facility] [place], PTSD, GERD, cholecystectomy 12/07, bilateral pulmonary embolisms with left-sided pulmonary infarct (diagnosed 02/2025) now on apixaban who presents today for evaluation of right arm pain. Patient received an IV in the right arm 48 hours ago. Patient has had thousands of IVs, and denies any complications in the past but states that this time it was a very specific sudden electrical stabbing sensation that occurred while the IV was being placed. This only lasted for a short period of time, and then it went away on its own. There is no burning during infusion, or during other stages. Later that afternoon and evening the patient had mild pain and discomfort in the antecubital region on the right-hand side, and then this is continued over the next 48 hours. It worsens when he fully extends his arm/elbow. It is a shocking sensation and the stabbing sensation that goes down all the way of his lateral aspect of his forearm. He denies any other proximal pain. He denies any fever or chills. He has taken some Tylenol with minimal improvement. No other complaints at this time. No other modifying factors. Normal movement of all extremities. No erythema or warmth. No atypical swelling compared to the left. Mild pain with palpation of the antecubital region, but no localized redness. Mild pain with full extension, but still demonstrates good movement at the wrist and forearm and elbow. Pain is slightly more exacerbated with acvtive flexion of the hand at the wrist, but no other significant exacerbation to the other movements. Differential is highest for mild nerve irritation secondary to IV placement, however differential also includes less likely abscess for hematoma or clot. Will recommend NSAID therapy with Voltaren gel since he is on the Eliquis, as well as Tylenol. Will recommend heating pad versus ice. Will get an ultrasound at this time for further assessment. 3 PM Ultrasound shows no evidence of DVT or abscess. Unfortunately the patient did have an appointment and had to leave prior to the results returning. I did contact the patient and left a message letting him know that the results were negative, and to continue with the plan of NSAID therapy heat and ice. FINDINGS: Basilic vein: Patent. Normal color-flow and normal compression and augmentation properties. Brachial vein(s):Patent. Normal color flow. Normal compression and augmentation properties. Cephalic vein:Patent. Normal color flow. Normal compression and augmentation properties. Axillary vein: Patent. Normal color flow. Normal compression and augmentation properties. Visualized subclavian vein: Patent. No obvious intraluminal thrombus. No abnormal focal fluid collection evident on the submitted images. IMPRESSION: 1. No evidence of venous thrombosis in the right upper extremity. 2. No evidence of discernible abscess. Quality:SDOH Health Related Social Needs: Health related social needs lonely/isolated Health related social needs details patient here frequently due to anxiety. PFSH All Active Problems (Updated 05/04/25 @ 17:06 by Richy Eagle DO) Irritation of radial nerve (Acute) Chest pain (Acute) History of fever (Acute) Chest pain (Acute) Arm pain, right (Acute) Varicose vein of leg (Acute) Pain in right leg (Acute) Breath shortness (Acute) Diarrhea (Acute) Weakness (Acute) Encounter for medication refill (Acute) Orthostasis (Acute) Anemia (Chronic) Atypical chest pain (Acute) Atypical chest pain (Acute) Hyperhomocysteinemia (Acute) Pulmonary infiltrates (Acute) Snoring (Acute) Pleural effusion (Acute) Rt groin pain (Acute) Rash (Acute) Shortness of breath (Acute) Edema, peripheral (Acute) Anxiety (Chronic) Chest discomfort (Acute) Pulmonary embolism and infarction (Acute) Left pulmonary infiltrate on CXR (Acute) Bilateral pulmonary embolism (Acute) Tenderness of neck (Acute) Right elbow pain (Acute) Acute leg pain (Acute) Bronchitis (Acute) Well adult health check (Acute) Obstructive sleep apnea (Chronic) Metabolic dysfunction-associated fatty liver disease (MAFLD) (Acute) Fatty liver (Acute) IBS (irritable bowel syndrome) (Chronic) Obesity (Chronic) Migraine with aura (Acute) Testicle lump (Acute) Pes anserine bursitis (Acute) Left-sided Flower's palsy (Acute) Opiate dependence, continuous (Acute) 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 Possible 2' Methadone, Clnzpm (?). Surg eval (+)/No further action. History of electrolyte imbalance (Acute) Neck pain on left side (Acute) with shoulder, upper back pain.. torticollis, radiating into left hip/leg Pulmonary nodule 1 cm or greater in diameter (Chronic) Therapeutic opioid induced constipation (Acute) Sphincter of Oddi dysfunction (Chronic) Abnormal CT scan, kidney (Acute) Intrahepatic bile duct dilation (Acute) Common bile duct dilatation (Chronic) Has been dilated for quite some time, now more-so. Normal LFTs. Known gallstones. 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 Hypocalcemia Anxiety Depression Hyperlipidemia Family history of multiple endocrine neoplasia, type 1 PTSD (post-traumatic stress disorder) Per pt. states no triggers at this time. Surgical History History of laparoscopic cholecystectomy (~11/2023) H/O parathyroidectomy Family History Mother Anxiety Asthma Depression Sister Anxiety Depression Father Cancer lung & stomach Depression Diabetes Hypertension MEN 1 (multiple endocrine neoplasia) Social History Smoking/Tobacco Use Status: Never Smoking risk assessment performed?: Yes Alcohol Intake: never Drug use: Current Sobriety Substance use type: former substance user, crack/cocaine, heroin and painkillers Details: stopped using substances for the past 4 years Adopted: No Caregiver/Support person: No Foster care: No Household members: none Housing: apartment Number of Children: 0 Communication Needs: None Education Level: high school Do you need help understanding health information?: Never 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 [employer] Pets and animals: Yes (Ally) Pets and animals: dog(s) Sexually active: No Do you think of yourself as: straight/heterosexual Current gender identity: male What is your relationship status?: How often do you talk on the phone with friends or family?: twice per week How often do you get together with friends or relatives?: never Do you belong to any clubs or organized social groups?: no Panel score (0-1 are the most socially isolated patients): 0 What type of physical activity do you participate in: walking Duration: 15-30 minutes/day Frequency: 5-6 times per week Maryam/Buddhist: Baptism Special maryam needs: No Seatbelt use: always Helmet use: Yes Helmet use: always Drive intox or ride w/intox haul driver: No Do you feel safe at home: Yes Do you feel safe in your relationship?: Yes
[2025-05-04 07:54] VITALS: BP 136/78; PULSE 99; RESP 16; O2SAT 96
[2025-05-04 07:55] VITALS: RESP 14
[2025-05-04 09:20] VITALS: BP 137/82; PULSE 98; RESP 15; O2SAT 16
== END 2025-05-04 10:36 | disposition home or self-care (01) ==
PROVIDERS: Emergency Provider Student in an Organized Health Care Education/Training Program; PCP Physician Assistant
DX: M79.601 Pain in right arm (principal); Z60.8 Other problems related to social environment; G56.32 Lesion of radial nerve, left upper limb
CPT/HCPCS: 99283; 99284; 93971

== ENCOUNTER 2025-05-05 08:26 | Emergency (ER) | payer OTHER, SELFPAY ==
--- NOTE | 2025-05-05 08:30 | RT.EKG_ITS ---
APPROVED REPORT Exam: Resting ECG Reason for Exam: dizzy Patient Location: E HR:93 bpm ECG Measurements Heart Rate 93 AXIS DC 171 P 54 QRSd 96 QRS 70 QT 366 T 17 QTc 456 Conclusion Sinus rhythm...normal P axis, V-rate 60- 99
[2025-05-05 08:33] VITALS: BP 143/83; PULSE 107; RESP 14; TEMP 36.6; O2SAT 95
[2025-05-05 09:14] LABS: Lab Add On Test DONE
[2025-05-05 09:26] LABS: Anion Gap 9.4 mmol/L (3-11); BUN 9 mg/dL (9-23); CO2 30.6 mmol/L (20.0-31.0); Calcium 10.0 mg/dL (8.3-10.6); Chloride 102 mmol/L (98-107); Glucose 124 mg/dL (74-106); Potassium 3.7 mmol/L (3.5-5.1); Sodium 142 mmol/L (136-145)
[2025-05-05 09:27] LABS: Magnesium 1.8 mg/dL (1.6-2.6)
[2025-05-05 14:52] VITALS: RESP 16
--- NOTE | 2025-05-05 15:22 | W.ED.GENAD ---
Discharge Plan Disposition Patient Disposition: Home Discharge Details Clinical Impression: Light-headed feeling Primary Care Provider: Sanjana Pritchett ED Provider: Luh Tsai Home Meds and New Rx's Prescriptions: Continued gabapentin 300 mg capsule 300 mg PO BID Qty: 180 3RF omeprazole 40 mg capsule,delayed release(DR/EC) 40 mg PO DAILY Qty: 90 3RF lorazepam 1 mg tablet 1 mg PO DAILY PRN (Reason: anxiety) Qty: 10 0RF Rx Instructions: Use when considering ER visit cyclobenzaprine 10 mg tablet 10 mg PO TID PRN (Reason: muscle spasm) Qty: 30 3RF Eliquis 5 mg tablet 5 mg PO BID Qty: 60 6RF methadone 10 mg/5 mL solution 100 mg PO QAM calcitriol 0.5 mcg capsule 1 mcg PO .COMPLEX Qty: 270 3RF Rx Instructions: 1 mcg orally t2 tabs qam and 1 tab QHS; folic acid 1 mg tablet 1 mg PO DAILY Qty: 30 6RF calcium carbonate [Tums] 200 mg calcium (500 mg) tablet,chewable 2,000 mg PO BID polyethylene glycol 3350 17 gram powder in packet 17 g PO BID PRN magnesium gluconate 27 mg magnesium (500 mg) tablet 500 mg PO BID Rx Instructions: takes 500mg QAM and 1000mg QHS diclofenac sodium 1 % gel 2 g topical QID Qty: 50 0RF Rx Instructions: apply to single elbow, wrist or hand; for hand includes palm/fingers/back of hand famotidine 20 mg tablet 20 mg PO BID Qty: 30 0RF sucralfate 1 gram tablet 1 g PO QACHS Qty: 90 0RF ondansetron 4 mg tablet,disintegrating 4 mg PO Q8H PRNQty: 20 0RF clonazepam 1 mg tablet 1 mg PO BID Qty: 10 0RF prochlorperazine maleate [Compazine] 10 mg tablet 10 mg PO Q6H PRNQty: 10 0RF Discharge Instructions Instructions: Dizziness, Adult ED Additional Instructions: it sounds like you may have taken 2 of your klonopin and are going to be more cautious in the future reviewed your electrolytes are quite reassuring please go home and rest should you develop worsening symptoms, please return for reassessment Stand Alone Forms: Portal Information Referrals: Sanjana Pritchett [Primary Care Provider, Medicine] HPI General Date/Time Provider Initiated Documentation: 05/05/25 08:28. HPI Narrative: This 29-year-old male known to our facility with history of MEN 2, PE, methadone dependence, s/p parathyroidectomy presents with report of blurry vision and lightheadedness that came on abruptly while he was walking. He denies any chest pain or shortness of breath. He has had similar symptoms in the past and is wondering if he accidentally took 2 of his 1 mg Klonopin prior to arrival. He states his folic acid is the same color capsule as the Klonopin and he took them approximately half hour prior to the onset of symptoms. The folic acid is not any medication to patient. He also had his methadone today. He denies any chest pain, shortness of breath, strength or sensation change or focal vision change. Denies any changes in speech Related Data Home Medications Medication Instructions Recorded Confirmed calcium carbonate (Tums) 2,000 mg PO BID 02/02/23 05/05/25 methadone 10 mg/5 mL oral solution 100 mg PO QAM 06/12/23 05/05/25 gabapentin 300 mg capsule 300 mg PO BID #180 caps 06/01/24 05/05/25 calcitriol 0.5 mcg capsule 1 mcg (2 x 0.5 mcg) PO .COMPLEX 06/29/24 05/05/25 #270 caps omeprazole 40 mg capsule,delayed 40 mg PO DAILY #90 caps 07/27/24 05/05/25 release polyethylene glycol 3350 17 gram 17 g PO BID PRN 10/15/24 05/05/25 oral powder packet lorazepam 1 mg tablet 1 mg PO DAILY PRN anxiety #10 tabs 10/19/24 05/05/25 cyclobenzaprine 10 mg tablet 10 mg PO TID PRN muscle spasm #30 11/16/24 05/05/25 tabs magnesium gluconate 27 mg 500 mg PO BID 01/30/25 05/05/25 magnesium (500 mg) tablet diclofenac sodium 1 % topical gel 2 g topical QID #50 grams 02/03/25 05/05/25 apixaban 5 mg tablet (Eliquis) 5 mg PO BID #60 tabs 03/08/25 05/05/25 famotidine 20 mg tablet 20 mg PO BID #30 tabs 03/15/25 05/05/25 ondansetron 4 mg disintegrating 4 mg PO Q8H PRN #20 tabs 03/15/25 05/05/25 tablet sucralfate 1 gram tablet 1 g PO QACHS #90 tabs 03/15/25 05/05/25 prochlorperazine maleate 10 mg 10 mg PO Q6H PRN #10 tabs 03/16/25 05/05/25 tablet (Compazine) folic acid 1 mg tablet 1 mg PO DAILY #30 tabs 03/17/25 05/05/25 clonazepam 1 mg tablet 1 mg PO BID #10 tabs 04/03/25 05/05/25 Previous Rx's Medication Instructions Recorded gabapentin 300 mg capsule 300 mg PO BID #180 caps 06/01/24 calcitriol 0.5 mcg capsule 1 mcg (2 x 0.5 mcg) PO .COMPLEX 06/29/24 #270 caps omeprazole 40 mg capsule,delayed 40 mg PO DAILY #90 caps 07/27/24 release lorazepam 1 mg tablet 1 mg PO DAILY PRN anxiety #10 tabs 10/19/24 cyclobenzaprine 10 mg tablet 10 mg PO TID PRN muscle spasm #30 11/16/24 tabs diclofenac sodium 1 % topical gel 2 g topical QID #50 grams 02/03/25 apixaban 5 mg tablet (Eliquis) 5 mg PO BID #60 tabs 03/08/25 famotidine 20 mg tablet 20 mg PO BID #30 tabs 03/15/25 ondansetron 4 mg disintegrating 4 mg PO Q8H PRN #20 tabs 03/15/25 tablet sucralfate 1 gram tablet 1 g PO QACHS #90 tabs 03/15/25 prochlorperazine maleate 10 mg 10 mg PO Q6H PRN #10 tabs 03/16/25 tablet (Compazine) folic acid 1 mg tablet 1 mg PO DAILY #30 tabs 03/17/25 clonazepam 1 mg tablet 1 mg PO BID #10 tabs 04/03/25 Allergies Allergy/AdvReac Type Severity Reaction Status Date / Time Penicillins Allergy Skin Rash Verified 05/05/25 08:38 marijuana (cannabis) AdvReac Severe Paranoia Verified 05/05/25 08:38 amoxicillin AdvReac Intermediate Nausea Verified 05/05/25 08:38 codeine AdvReac Intermediate pass out Verified 05/05/25 08:38 dextromethorphan (From AdvReac Intermediate got Verified 05/05/25 08:38 NyQuil) really hot and sweaty doxylamine (From NyQuil) AdvReac Intermediate got Verified 05/05/25 08:38 really hot and sweaty pseudoephedrine (From NyQuil) AdvReac Intermediate got Verified 05/05/25 08:38 really hot and sweaty General Stated Complaint: Dizzy/Sync ADRIANA: 3 Exam Narrative Exam Narrative: 29-year-old male alert and oriented, in no acute distress pupils equal round reactive to light and accommodation extraocular muscles intact visual beckett intact, ambulatory with steady gait negative [id number], negative heel zacarias, negative pronator drift, cardiac rate rhythm regular no respiratory distress answering questions appropriately Course Vital Signs Vital signs: Vital Signs Temperature 36.6 C 05/05/25 08:33 Pulse 107 H 05/05/25 08:33 Respiratory Rate 14 05/05/25 08:33 Blood Pressure 143/83 H 05/05/25 08:33 Pulse Oximetry 95 05/05/25 08:33 Temperature 36.6 C 05/05/25 08:33 Temperature Source Oral 05/05/25 08:33 Pulse 107 H 05/05/25 08:33 Respiratory Rate 16 05/05/25 14:52 Respiratory Effort Normal, Non-Labored 05/05/25 14:52 Respiratory Depth Normal 05/05/25 14:52 Respiratory Pattern Normal 05/05/25 14:52 Blood Pressure 143/83 H 05/05/25 08:33 Blood Pressure Position Sitting 05/05/25 08:33 Pulse Oximetry 95 05/05/25 08:33 Oxygen Delivery Method Room Air 05/05/25 08:33 Oxygen Flow Rate 0 05/05/25 08:33 Lab/Test Results Lab/Test Results: Laboratory Tests Range/Units 05/05/25 05/05/25 08:50 09:13 Sodium (136-145) mmol/L 142 Potassium (3.5-5.1) mmol/L 3.7 Chloride (98-107) mmol/L 102 Carbon Dioxide (20.0-31.0) mmol/L 30.6 Anion Gap (3-11) mmol/L 9.4 BUN (9-23) mg/dL 9 Creatinine (0.73-1.18) mg/dL 1.4 H Est GFR (CKD-EPI 2020) (mL/min/1.73m2) 57.94 Glucose (74-106) mg/dL 124 H Calcium (8.3-10.6) mg/dL 10.0 Magnesium (1.6-2.6) mg/dL 1.8 Add-On Test Request DONE Medical Decision Making Results: CMP magnesium and glucose including EKG all within normal limits Assessment and plan: Patient's vision is at his baseline, he is no longer feeling lightheaded, he does feel slightly tired. At this point I think patient stable for discharge home, his labs are reassuring and recent CTA of his head and neck approximately 2 weeks ago. I see no indication in fact I think there is more of a risk than benefit from doing any additional testing at this time. Orthostatics were negative on my assessment, close outpatient follow-up with PCP encouraged patient discussed improvement in symptoms and understanding for return precautions. Quality:SDOH Health Related Social Needs: Health related social needs lonely/isolated Health related social needs details patient here frequently due to anxiety. PFSH All Active Problems (Updated 05/05/25 @ 10:08 by ANDREW Arriaga) Light-headed feeling (Acute) Irritation of radial nerve (Acute) Chest pain (Acute) History of fever (Acute) Chest pain (Acute) Arm pain, right (Acute) Varicose vein of leg (Acute) Pain in right leg (Acute) Breath shortness (Acute) Diarrhea (Acute) Weakness (Acute) Encounter for medication refill (Acute) Orthostasis (Acute) Anemia (Chronic) Atypical chest pain (Acute) Hyperhomocysteinemia (Acute) Pulmonary infiltrates (Acute) Snoring (Acute) Pleural effusion (Acute) Rt groin pain (Acute) Rash (Acute) Shortness of breath (Acute) Edema, peripheral (Acute) Anxiety (Chronic) Chest discomfort (Acute) Pulmonary embolism and infarction (Acute) Left pulmonary infiltrate on CXR (Acute) Bilateral pulmonary embolism (Acute) Tenderness of neck (Acute) Right elbow pain (Acute) Acute leg pain (Acute) Bronchitis (Acute) Well adult health check (Acute) Obstructive sleep apnea (Chronic) Metabolic dysfunction-associated fatty liver disease (MAFLD) (Acute) Fatty liver (Acute) IBS (irritable bowel syndrome) (Chronic) Obesity (Chronic) Migraine with aura (Acute) Testicle lump (Acute) Pes anserine bursitis (Acute) Left-sided Flower's palsy (Acute) Opiate dependence, continuous (Acute) 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 Possible 2' Methadone, Clnzpm (?). Surg eval (+)/No further action. History of electrolyte imbalance (Acute) Neck pain on left side (Acute) with shoulder, upper back pain.. torticollis, radiating into left hip/leg Pulmonary nodule 1 cm or greater in diameter (Chronic) Therapeutic opioid induced constipation (Acute) Sphincter of Oddi dysfunction (Chronic) Abnormal CT scan, kidney (Acute) Intrahepatic bile duct dilation (Acute) Common bile duct dilatation (Chronic) Has been dilated for quite some time, now more-so. Normal LFTs. Known gallstones. 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 Hypocalcemia Anxiety Depression Hyperlipidemia Family history of multiple endocrine neoplasia, type 1 PTSD (post-traumatic stress disorder) Per pt. states no triggers at this time. Surgical History History of laparoscopic cholecystectomy (~11/2023) H/O parathyroidectomy Family History Mother Anxiety Asthma Depression Sister Anxiety Depression Father Cancer lung & stomach Depression Diabetes Hypertension MEN 1 (multiple endocrine neoplasia) Social History Smoking/Tobacco Use Status: Never Smoking risk assessment performed?: Yes Alcohol Intake: never Drug use: Current Sobriety Substance use type: former substance user, crack/cocaine, heroin and painkillers Details: stopped using substances for the past 4 years Adopted: No Caregiver/Support person: No Foster care: No Household members: none Housing: apartment Number of Children: 0 Communication Needs: None Education Level: high school Do you need help understanding health information?: Never current occupation: [employer] Pets and animals: Yes (Ally) Pets and animals: dog(s) Sexually active: No Do you think of yourself as: straight/heterosexual Current gender identity: male What is your relationship status?: How often do you talk on the phone with friends or family?: twice per week How often do you get together with friends or relatives?: never Do you belong to any clubs or organized social groups?: no Panel score (0-1 are the most socially isolated patients): 0 What type of physical activity do you participate in: walking Duration: 15-30 minutes/day Frequency: 5-6 times per week Mrayam/Evangelical: Jainism Special maryam needs: No Seatbelt use: always Helmet use: Yes Helmet use: always 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
== END 2025-05-05 10:49 | disposition home or self-care (01) ==
PROVIDERS: Emergency Provider Physician Assistant; PCP Physician Assistant
DX: R42 Dizziness and giddiness (principal); N18.2 Chronic kidney disease, stage 2 (mild); E89.2 Postprocedural hypoparathyroidism; F11.21 Opioid dependence, in remission; Z79.01 Long term (current) use of anticoagulants; Z79.899 Other long term (current) drug therapy
CPT/HCPCS: 36415; 80048; 82962; 93005; 99284; 83735; 93010

== ENCOUNTER 2025-05-11 21:54 | Emergency (ER) | payer OTHER, SELFPAY ==
[2025-05-11] VITALS (15 sets, daily range): BP systolic 111–124; BP diastolic 51–82; PULSE 75–101; RESP 13–23; O2SAT 92–99
--- NOTE | 2025-05-11 21:45 | RT.EKG_ITS ---
APPROVED REPORT Exam: Resting ECG Reason for Exam: chest pain Patient Location: E HR:94 bpm ECG Measurements Heart Rate 94 AXIS KS 185 P 27 QRSd 97 QRS 20 QT 375 T 40 QTc 469 Conclusion Sinus rhythm...normal P axis, V-rate 60- 99
--- NOTE | 2025-05-11 22:12 | W.ED.GENAD ---
Discharge Plan Disposition Patient Disposition: Home Condition: Stable Discharge Details Clinical Impression: Palpitations Primary Care Provider: Sanjana Pritchett ED Provider: Ricardo Crabtree Home Meds and New Rx's Prescriptions: Continued gabapentin 300 mg capsule 300 mg PO BID Qty: 180 3RF omeprazole 40 mg capsule,delayed release(DR/EC) 40 mg PO DAILY Qty: 90 3RF lorazepam 1 mg tablet 1 mg PO DAILY PRN (Reason: anxiety) Qty: 10 0RF Rx Instructions: Use when considering ER visit cyclobenzaprine 10 mg tablet 10 mg PO TID PRN (Reason: muscle spasm) Qty: 30 3RF Eliquis 5 mg tablet 5 mg PO BID Qty: 60 6RF methadone 10 mg/5 mL solution 100 mg PO QAM calcitriol 0.5 mcg capsule 1 mcg PO .COMPLEX Qty: 270 3RF Rx Instructions: 1 mcg orally t2 tabs qam and 1 tab QHS; folic acid 1 mg tablet 1 mg PO DAILY Qty: 30 6RF calcium carbonate [Tums] 200 mg calcium (500 mg) tablet,chewable 2,000 mg PO BID polyethylene glycol 3350 17 gram powder in packet 17 g PO BID PRN magnesium gluconate 27 mg magnesium (500 mg) tablet 500 mg PO BID Rx Instructions: takes 500mg QAM and 1000mg QHS diclofenac sodium 1 % gel 2 g topical QID Qty: 50 0RF Rx Instructions: apply to single elbow, wrist or hand; for hand includes palm/fingers/back of hand famotidine 20 mg tablet 20 mg PO BID Qty: 30 0RF sucralfate 1 gram tablet 1 g PO QACHS Qty: 90 0RF ondansetron 4 mg tablet,disintegrating 4 mg PO Q8H PRNQty: 20 0RF clonazepam 1 mg tablet 1 mg PO BID Qty: 10 0RF prochlorperazine maleate [Compazine] 10 mg tablet 10 mg PO Q6H PRNQty: 10 0RF Discharge Instructions Additional Instructions: Your lab work did not show any concerning findings from your baseline. Follow-up with your primary care provider if not improving within 1 to 2 weeks. If you feel significantly more ill or have severe worsening pain return to the emergency department for reevaluation. Stand Alone Forms: Portal Information HPI General Mode of arrival: ambulatory. Date/Time Provider Initiated Documentation: 05/11/25 21:58. Limitations to Documentation: no limitations. Information obtained by: patient. History of Present Illness 29 year old M presents to the emergency department with the chief complaint of palpitations, described as moderate, Patient started experiencing this day(s) (1) and it has been constant. No relieving factors improve symptom(s), No exacerbating factors reported . Patient notes no other symptoms.. Patient did receive the following treatments prior to arrival, none Related Data Home Medications ?Medication ?Instructions ?Recorded ?Confirmed calcium carbonate (Tums) 2,000 mg PO BID 02/02/23 05/11/25 methadone 10 mg/5 mL oral solution 100 mg PO QAM 06/12/23 05/11/25 gabapentin 300 mg capsule 300 mg PO BID #180 caps 06/01/24 05/11/25 calcitriol 0.5 mcg capsule 1 mcg (2 x 0.5 mcg) PO .COMPLEX 06/29/24 05/11/25 #270 caps omeprazole 40 mg capsule,delayed 40 mg PO DAILY #90 caps 07/27/24 05/11/25 release polyethylene glycol 3350 17 gram 17 g PO BID PRN 10/15/24 05/11/25 oral powder packet lorazepam 1 mg tablet 1 mg PO DAILY PRN anxiety #10 tabs 10/19/24 05/11/25 cyclobenzaprine 10 mg tablet 10 mg PO TID PRN muscle spasm #30 11/16/24 05/11/25 tabs magnesium gluconate 27 mg 500 mg PO BID 01/30/25 05/11/25 magnesium (500 mg) tablet diclofenac sodium 1 % topical gel 2 g topical QID #50 grams 02/03/25 05/11/25 apixaban 5 mg tablet (Eliquis) 5 mg PO BID #60 tabs 03/08/25 05/11/25 famotidine 20 mg tablet 20 mg PO BID #30 tabs 03/15/25 05/11/25 ondansetron 4 mg disintegrating 4 mg PO Q8H PRN #20 tabs 03/15/25 05/11/25 tablet sucralfate 1 gram tablet 1 g PO QACHS #90 tabs 03/15/25 05/11/25 prochlorperazine maleate 10 mg 10 mg PO Q6H PRN #10 tabs 03/16/25 05/11/25 tablet (Compazine) folic acid 1 mg tablet 1 mg PO DAILY #30 tabs 03/17/25 05/11/25 clonazepam 1 mg tablet 1 mg PO BID #10 tabs 04/03/25 05/11/25 Previous Rx's ?Medication ?Instructions ?Recorded gabapentin 300 mg capsule 300 mg PO BID #180 caps 06/01/24 calcitriol 0.5 mcg capsule 1 mcg (2 x 0.5 mcg) PO .COMPLEX 06/29/24 #270 caps omeprazole 40 mg capsule,delayed 40 mg PO DAILY #90 caps 07/27/24 release lorazepam 1 mg tablet 1 mg PO DAILY PRN anxiety #10 tabs 10/19/24 cyclobenzaprine 10 mg tablet 10 mg PO TID PRN muscle spasm #30 11/16/24 tabs diclofenac sodium 1 % topical gel 2 g topical QID #50 grams 02/03/25 apixaban 5 mg tablet (Eliquis) 5 mg PO BID #60 tabs 03/08/25 famotidine 20 mg tablet 20 mg PO BID #30 tabs 03/15/25 ondansetron 4 mg disintegrating 4 mg PO Q8H PRN #20 tabs 03/15/25 tablet sucralfate 1 gram tablet 1 g PO QACHS #90 tabs 03/15/25 prochlorperazine maleate 10 mg 10 mg PO Q6H PRN #10 tabs 03/16/25 tablet (Compazine) folic acid 1 mg tablet 1 mg PO DAILY #30 tabs 03/17/25 clonazepam 1 mg tablet 1 mg PO BID #10 tabs 04/03/25 Allergies Allergy/AdvReac Type Severity Reaction Status Date / Time Penicillins Allergy Skin Rash Verified 05/11/25 22:13 marijuana (cannabis) AdvReac Severe Paranoia Verified 05/11/25 22:13 amoxicillin AdvReac Intermediate Nausea Verified 05/11/25 22:13 codeine AdvReac Intermediate pass out Verified 05/11/25 22:13 dextromethorphan (From AdvReac Intermediate got Verified 05/11/25 22:13 NyQuil) really hot and sweaty doxylamine (From NyQuil) AdvReac Intermediate got Verified 05/11/25 22:13 really hot and sweaty pseudoephedrine (From NyQuil) AdvReac Intermediate got Verified 05/11/25 22:13 really hot and sweaty General ADRIANA: 3 Review of Systems All systems reviewed & are unremarkable except as noted in HPI and below Constitutional Constitutional: Denies chills, Denies fever(s) and Denies weakness Cardiovascular Cardiovascular: Reports chest pain, Denies dyspnea and Reports other (palpitations) Respiratory Respiratory: Denies cough and Denies dyspnea Gastrointestinal Gastrointestinal: Denies abdominal pain, Denies nausea and Denies vomiting Neurologic Neurologic: Denies weakness Psychiatric Psychiatric: Denies depression Exam Const General: no acute distress Orientation: alert HENMT Head: normal to inspection Ears: external ears normal General nose exam: external nose normal Mouth: moist mucous membranes Eyes General: appearance normal, both eyes and all related structures Neck Neck: normal visual inspection Resp Effort & Inspection: normal respiratory effort and able to speak in complete sentences Auscultation: clear to auscultation bilaterally Cardio Jugular venous pressure: no JVD Rate: regular rate Skin General skin exam: no rashes or lesions noted Neuro General: patient alert and patient oriented x3 Extrem General: normal to inspection Psych Mental Status: mental status grossly normal Medical Decision Making 29-year-old male with a history of multiple endocrine neoplasia, PE on Eliquis and states he has not missed any doses comes in with feeling palpitations throughout the day and currently concerned his electrolytes might be low. He says that he will intermittently have some anterior chest pain. This been going on all day, he is currently in sinus rhythm speaking clearly. He has clear lung sounds, no JVD, no leg swelling or calf tenderness. Given his history we will check a single troponin given his symptoms been going on all day. He has not missed any doses of Eliquis he is not hypoxic or tachycardic so I doubt PE. Has no tearing back pain to suggest dissection. Will also check a CBC and CMP and magnesium level and reassess. Patient's labs show no significant changes from baseline. He is stable and vital signs are stable. He will follow-up with his PCP and return precautions given. Differential Diagnosis Differential Diagnosis: Electrolyte abnormalities, anxiety Medical Records Medical records reviewed: Yes I reviewed the patient's medical records. Lab Data Lab results reviewed: Yes I reviewed the patient's lab results. ECG Data Attestation: I personally reviewed and interpreted this ECG (s) as follows: Prior ECG tracings: available for review Interpretation: Sinus rhythm, rate of 94, no STEMI Quality:SDOH Health Related Social Needs: Health related social needs lonely/isolated Health related social needs details patient here frequently due to anxiety. PFSH All Active Problems (Updated 05/11/25 @ 22:15 by Ricardo Crabtree MD) Palpitations (Acute) Light-headed feeling (Acute) Irritation of radial nerve (Acute) Chest pain (Acute) History of fever (Acute) Chest pain (Acute) Arm pain, right (Acute) Varicose vein of leg (Acute) Pain in right leg (Acute) Breath shortness (Acute) Diarrhea (Acute) Weakness (Acute) Encounter for medication refill (Acute) Hyperhomocysteinemia (Acute) Pulmonary infiltrates (Acute) Snoring (Acute) Pleural effusion (Acute) Rt groin pain (Acute) Rash (Acute) Shortness of breath (Acute) Edema, peripheral (Acute) Anxiety (Chronic) Chest discomfort (Acute) Pulmonary embolism and infarction (Acute) Left pulmonary infiltrate on CXR (Acute) Bilateral pulmonary embolism (Acute) Tenderness of neck (Acute) Right elbow pain (Acute) Acute leg pain (Acute) Bronchitis (Acute) Well adult health check (Acute) Obstructive sleep apnea (Chronic) Metabolic dysfunction-associated fatty liver disease (MAFLD) (Acute) Fatty liver (Acute) IBS (irritable bowel syndrome) (Chronic) Obesity (Chronic) Migraine with aura (Acute) Testicle lump (Acute) Pes anserine bursitis (Acute) Left-sided Flower's palsy (Acute) Opiate dependence, continuous (Acute) 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 Possible 2' Methadone, Clnzpm (?). Surg eval (+)/No further action. History of electrolyte imbalance (Acute) Neck pain on left side (Acute) with shoulder, upper back pain.. torticollis, radiating into left hip/leg Pulmonary nodule 1 cm or greater in diameter (Chronic) Therapeutic opioid induced constipation (Acute) Sphincter of Oddi dysfunction (Chronic) Abnormal CT scan, kidney (Acute) Intrahepatic bile duct dilation (Acute) Common bile duct dilatation (Chronic) Has been dilated for quite some time, now more-so. Normal LFTs. Known gallstones. 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 Hypocalcemia Anxiety Depression Hyperlipidemia Family history of multiple endocrine neoplasia, type 1 PTSD (post-traumatic stress disorder) Per pt. states no triggers at this time. Surgical History History of laparoscopic cholecystectomy (~11/2023) H/O parathyroidectomy Family History Mother Anxiety Asthma Depression Sister Anxiety Depression Father Cancer lung & stomach Depression Diabetes Hypertension MEN 1 (multiple endocrine neoplasia) Social History Smoking/Tobacco Use Status: Never Smoking risk assessment performed?: Yes Alcohol Intake: never Drug use: Current Sobriety Substance use type: former substance user, crack/cocaine, heroin and painkillers Details: stopped using substances for the past 4 years Adopted: No Caregiver/Support person: No Foster care: No Household members: none Housing: apartment Number of Children: 0 Communication Needs: None Education Level: high school Do you need help understanding health information?: Never current occupation: [employer] Pets and animals: Yes (Ally) Pets and animals: dog(s) Sexually active: No Do you think of yourself as: straight/heterosexual Current gender identity: male What is your relationship status?: How often do you talk on the phone with friends or family?: twice per week How often do you get together with friends or relatives?: never Do you belong to any clubs or organized social groups?: no Panel score (0-1 are the most socially isolated patients): 0 What type of physical activity do you participate in: walking Duration: 15-30 minutes/day Frequency: 5-6 times per week Maryam/Jehovah'S Witness: [employer] Special maryam needs: No Seatbelt use: always Helmet use: Yes Helmet use: always Drive intox or ride w/intox local driver: No Do you feel safe at home: Yes Do you feel safe in your relationship?: Yes
[2025-05-11 22:35] LABS: HCT 28.4 % (40.0-50.0); HGB 8.6 g/dL (13.5-17.5); MCH 23.8 pg (27.0-33.0); MCHC 30.3 % (32.0-36.0); MCV 79 fL (80-95); MPV 9.8 fL (8.0-11.0); Platelet Count 325 10^3/uL (130-400); RBC 3.62 10^6/uL (4.36-5.78); RDW 16.9 % (11.8-14.1); RDW-SD 48.5 fL; WBC 7.73 10^3/uL (4.4-10.8)
[2025-05-11 22:58] LABS: Magnesium 1.7 mg/dL (1.6-2.6)
[2025-05-11 22:59] LABS: ALT 33 U/L (10-49); AST 31 U/L (<34); Albumin 4.0 g/dL (3.2-5.0); Alkaline Phosphatase 129 U/L (46-116); Anion Gap 3.9 mmol/L (3-11); BUN 10 mg/dL (9-23); Bilirubin, Total 0.20 mg/dL (0.2-1.2); CO2 33.1 mmol/L (20.0-31.0); Calcium 8.8 mg/dL (8.3-10.6); Chloride 101 mmol/L (98-107); Glucose 108 mg/dL (74-106); Potassium 3.5 mmol/L (3.5-5.1); Sodium 138 mmol/L (136-145); Total Protein 7.3 g/dL (5.7-8.2)
[2025-05-11 23:06] LABS: Troponin I < 3 ng/L (<54)
[2025-05-11 23:11] LABS: COVID-19 PCR Negative (Negative); RSV PCR Negative (Negative)
== END 2025-05-11 23:19 | disposition home or self-care (01) ==
PROVIDERS: Emergency Provider Emergency Medicine; PCP Physician Assistant
DX: R00.2 Palpitations (principal); Z60.8 Other problems related to social environment
CPT/HCPCS: 36415; 80053; 85027; 87637; 93005; 99284; 83735; 84484; 93010; 99283

== ENCOUNTER 2025-05-16 06:41 | Emergency (ER) | payer OTHER, SELFPAY ==
--- NOTE | 2025-05-16 06:45 | RT.EKG_ITS ---
APPROVED REPORT Exam: Resting ECG Reason for Exam: cp Patient Location: E HR:105 bpm ECG Measurements Heart Rate 105 AXIS MO 164 P 40 QRSd 97 QRS 43 QT 351 T 25 QTc 464 Conclusion Sinus tachycardia...rate> 99 No Occlusion MO
[2025-05-16 06:50] VITALS: BP 127/61; PULSE 113; RESP 18; TEMP 38; O2SAT 97
--- NOTE | 2025-05-16 07:00 | DI.RAD_ITS ---
Exam(s) XR CHEST 2V PA LATERAL EXAM: XR CHEST 2V PA LATERAL CLINICAL HISTORY: Chest pain. TECHNIQUE: 2D digital imaging was performed. COMPARISON: Chest x-ray 05/01/2025 FINDINGS: 2 views: Heart size is normal. The mediastinum is not widened. Lungs are clear. No infiltrates nor pleural effusions. IMPRESSION: No acute pulmonary findings. DATA REPOSITORY: RADIATION DOSE DELIVERED:
--- NOTE | 2025-05-16 07:01 | W.ED.GENAD ---
Discharge Plan Disposition Patient Disposition: Home Discharge Details Clinical Impression: Chest pain, unspecified Primary Care Provider: Sanjana Pritchett ED Provider: Pedro Wolfe [facility]e Meds and New Rx's Prescriptions: Continued gabapentin 300 mg capsule 300 mg PO BID Qty: 180 3RF omeprazole 40 mg capsule,delayed release(DR/EC) 40 mg PO DAILY Qty: 90 3RF lorazepam 1 mg tablet 1 mg PO DAILY PRN (Reason: anxiety) Qty: 10 0RF Rx Instructions: Use when considering ER visit cyclobenzaprine 10 mg tablet 10 mg PO TID PRN (Reason: muscle spasm) Qty: 30 3RF Eliquis 5 mg tablet 5 mg PO BID Qty: 60 6RF methadone 10 mg/5 mL solution 100 mg PO QAM calcitriol 0.5 mcg capsule 1 mcg PO .COMPLEX Qty: 270 3RF Rx Instructions: 1 mcg orally t2 tabs qam and 1 tab QHS; folic acid 1 mg tablet 1 mg PO DAILY Qty: 30 6RF calcium carbonate [Tums] 200 mg calcium (500 mg) tablet,chewable 2,000 mg PO BID polyethylene glycol 3350 17 gram powder in packet 17 g PO BID PRN magnesium gluconate 27 mg magnesium (500 mg) tablet 500 mg PO BID Rx Instructions: takes 500mg QAM and 1000mg QHS diclofenac sodium 1 % gel 2 g topical QID Qty: 50 0RF Rx Instructions: apply to single elbow, wrist or hand; for hand includes palm/fingers/back of hand famotidine 20 mg tablet 20 mg PO BID Qty: 30 0RF sucralfate 1 gram tablet 1 g PO QACHS Qty: 90 0RF ondansetron 4 mg tablet,disintegrating 4 mg PO Q8H PRNQty: 20 0RF clonazepam 1 mg tablet 1 mg PO BID Qty: 10 0RF prochlorperazine maleate [Compazine] 10 mg tablet 10 mg PO Q6H PRNQty: 10 0RF Discharge Instructions Additional Instructions: You were seen in the emergency department for your chest pain. Your EKG showed no sign of heart attack. Your oxygen level is reassuring. You are found to have a fever. This is likely the result of a viral infection. You will receive a callback if your viral swab is positive. Otherwise please wear a mask and stay home. Please return to the emergency department if you cannot eat or drink for 12 nausea or vomiting does not stop or if you have any concerns. Stand Alone Forms: Portal Information HPI General Date/Time Provider Initiated Documentation: 05/16/25 07:01. HPI Narrative: MDM This is an overall very well-appearing febrile and initially tachycardic 29-year-old male with chest pain worse when taking a deep breath but adherent with apixaban therapy with reproducible symptoms not consistent with PE. Will order troponin to risk stratify for ACS. Patient has equal breath sounds and no significant cough making my suspicion for pneumonia low however will obtain chest x-ray. Patient has not been vomiting to suggest increased risk for esophageal rupture. Patient has no trauma to chest so my suspicion is lower for pneumothorax. No recent emesis to suggest esophageal rupture. Not hypotensive nor a dialysis patient making my suspicion lower for cardiac tamponade. No rash to chest to suggest zoster. Regarding the patient's fever I considered sepsis however patient is quite well-appearing and most likely has a viral source and I did not feel he required broad-spectrum antibiotics or assessment of lactate. He is soft nontender abdomen so doubt intra-abdominal infection. No nuchal rigidity to suggest meningitis. Patient has not been vomiting to suggest subdural empyema. Will obtain urinalysis to assess for UTI. 8 AM Reassuring urinalysis not consistent with UTI??nitrite negative, no leuk esterase and no hematuria. Persistent slightly improved microcytic anemia. No thrombocytopenia nor leukocytosis. Basic metabolic panel lacks FLORESITA but does show CKD. No anion gap. No acute electrolyte abnormalities. Negative and undetectable troponin. Based on duration of time since patient's symptoms began no indication for repeat troponin. Preliminary interpretation of patient's chest x-ray reveals no acute cardiopulmonary process. No infiltrates. Patient received acetaminophen and 500 cc of crystalloid in the ED. respiratory viral swab negative. Diagnostic interpretations performed by me: Per my independent interpretation chest x-ray shows: No acute cardiopulmonary process Per my independent interpretation EKG shows: Narrow complex sinus tachycardia rate of 105. Normal axis. Intervals within normal limits. No ST segment abnormalities. No T wave inversions. No acute injury pattern. Appears similar to prior dated earlier this fall. HPI This is a patient with a history of blood clots presenting with chest pain. The patient reports that the symptoms began on Friday when he developed a blood clot in his arm. He subsequently experienced pain in his right chest, which he initially thought might be due to a pulled muscle. He decided to wait and monitor the situation. This morning, he woke up with worsened pain, a sensation of heat, and shortness of breath. The pain is particularly pronounced upon palpation. He is concerned about the possibility of a recurrent clot in the same location. His current symptoms are similar to those he experienced during a previous pulmonary embolism, with pain upon inhalation. He has not been hospitalized recently and has avoided walking due to feeling unwell. He reports no missed doses of his anticoagulant medication and no episodes of vomiting. He mentions mild abdominal discomfort today, described as a sickly feeling rather than pain. He was able to eat breakfast without issue. He also reports no known illnesses within his household. Exam General: Well-appearing in no acute distress speaking in complete sentences. Head: Normocephalic, atraumatic. Eye: Extraocular eye movements intact. No conjunctival injection. No scleral icterus. Ear, nose, mouth, throat: Grossly normal inspection. Normal voice, handling secretions normally. Neck: Trachea midline. No nuchal rigidity. Cardiovascular: Well-perfused distal extremities. Regular rate and rhythm. Respiratory: Nonlabored respiration. Clear lungs bilaterally. Chest wall: Right sided upper chest wall tenderness with palpation. No rash to chest wall. Gastrointestinal: Nondistended abdomen. Soft. Nontender. Musculoskeletal: No edema. Moving all 4 extremities spontaneously. Skin: Normal for age and race, grossly normal temperature and turgor. No acute rash. Neurologic: Alert and appropriate, no apparent acute deficits. Psychiatric: Mood and manner are appropriate. Grooming and personal hygiene are appropriate. Related Data Home Medications ?Medication ?Instructions ?Recorded ?Confirmed calcium carbonate (Tums) 2,000 mg PO BID 02/02/23 05/16/25 methadone 10 mg/5 mL oral solution 100 mg PO QAM 06/12/23 05/16/25 gabapentin 300 mg capsule 300 mg PO BID #180 caps 06/01/24 05/16/25 calcitriol 0.5 mcg capsule 1 mcg (2 x 0.5 mcg) PO .COMPLEX 06/29/24 05/16/25 #270 caps omeprazole 40 mg capsule,delayed 40 mg PO DAILY #90 caps 07/27/24 05/16/25 release polyethylene glycol 3350 17 gram 17 g PO BID PRN 10/15/24 05/16/25 oral powder packet lorazepam 1 mg tablet 1 mg PO DAILY PRN anxiety #10 tabs 10/19/24 05/16/25 cyclobenzaprine 10 mg tablet 10 mg PO TID PRN muscle spasm #30 11/16/24 05/16/25 tabs magnesium gluconate 27 mg 500 mg PO BID 01/30/25 05/16/25 magnesium (500 mg) tablet diclofenac sodium 1 % topical gel 2 g topical QID #50 grams 02/03/25 05/16/25 apixaban 5 mg tablet (Eliquis) 5 mg PO BID #60 tabs 03/08/25 05/16/25 famotidine 20 mg tablet 20 mg PO BID #30 tabs 03/15/25 05/16/25 ondansetron 4 mg disintegrating 4 mg PO Q8H PRN #20 tabs 03/15/25 05/16/25 tablet sucralfate 1 gram tablet 1 g PO QACHS #90 tabs 03/15/25 05/16/25 prochlorperazine maleate 10 mg 10 mg PO Q6H PRN #10 tabs 03/16/25 05/16/25 tablet (Compazine) folic acid 1 mg tablet 1 mg PO DAILY #30 tabs 03/17/25 05/16/25 clonazepam 1 mg tablet 1 mg PO BID #10 tabs 04/03/25 05/16/25 Previous Rx's ?Medication ?Instructions ?Recorded gabapentin 300 mg capsule 300 mg PO BID #180 caps 06/01/24 calcitriol 0.5 mcg capsule 1 mcg (2 x 0.5 mcg) PO .COMPLEX 06/29/24 #270 caps omeprazole 40 mg capsule,delayed 40 mg PO DAILY #90 caps 07/27/24 release lorazepam 1 mg tablet 1 mg PO DAILY PRN anxiety #10 tabs 10/19/24 cyclobenzaprine 10 mg tablet 10 mg PO TID PRN muscle spasm #30 11/16/24 tabs diclofenac sodium 1 % topical gel 2 g topical QID #50 grams 02/03/25 apixaban 5 mg tablet (Eliquis) 5 mg PO BID #60 tabs 03/08/25 famotidine 20 mg tablet 20 mg PO BID #30 tabs 03/15/25 ondansetron 4 mg disintegrating 4 mg PO Q8H PRN #20 tabs 03/15/25 tablet sucralfate 1 gram tablet 1 g PO QACHS #90 tabs 03/15/25 prochlorperazine maleate 10 mg 10 mg PO Q6H PRN #10 tabs 03/16/25 tablet (Compazine) folic acid 1 mg tablet 1 mg PO DAILY #30 tabs 03/17/25 clonazepam 1 mg tablet 1 mg PO BID #10 tabs 04/03/25 Allergies Allergy/AdvReac Type Severity Reaction Status Date / Time Penicillins Allergy Skin Rash Verified 05/16/25 15:05 marijuana (cannabis) AdvReac Severe Paranoia Verified 05/16/25 15:05 amoxicillin AdvReac Intermediate Nausea Verified 05/16/25 15:05 codeine AdvReac Intermediate pass out Verified 05/16/25 15:05 dextromethorphan (From AdvReac Intermediate got Verified 05/16/25 15:05 NyQuil) really hot and sweaty doxylamine (From NyQuil) AdvReac Intermediate got Verified 05/16/25 15:05 really hot and sweaty pseudoephedrine (From NyQuil) AdvReac Intermediate got Verified 05/16/25 15:05 really hot and sweaty General ADRIANA: 3 Medical Decision Making Quality:SDOH Health Related Social Needs: Health related social needs lonely/isolated Health related social needs details patient here frequently due to anxiety. PFSH All Active Problems (Updated 05/16/25 @ 08:07 by Pedro Wolfe MD) Chest pain, unspecified (Acute) Palpitations (Acute) Light-headed feeling (Acute) Irritation of radial nerve (Acute) Chest pain (Acute) History of fever (Acute) Chest pain (Acute) Arm pain, right (Acute) Varicose vein of leg (Acute) Pain in right leg (Acute) Breath shortness (Acute) Hyperhomocysteinemia (Acute) Pulmonary infiltrates (Acute) Snoring (Acute) Pleural effusion (Acute) Rt groin pain (Acute) Rash (Acute) Shortness of breath (Acute) Edema, peripheral (Acute) Anxiety (Chronic) Chest discomfort (Acute) Pulmonary embolism and infarction (Acute) Left pulmonary infiltrate on CXR (Acute) Bilateral pulmonary embolism (Acute) Tenderness of neck (Acute) Right elbow pain (Acute) Acute leg pain (Acute) Bronchitis (Acute) Well adult health check (Acute) Obstructive sleep apnea (Chronic) Metabolic dysfunction-associated fatty liver disease (MAFLD) (Acute) Fatty liver (Acute) IBS (irritable bowel syndrome) (Chronic) Obesity (Chronic) Migraine with aura (Acute) Testicle lump (Acute) Pes anserine bursitis (Acute) Left-sided Flower's palsy (Acute) Opiate dependence, continuous (Acute) 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 Possible 2' Methadone, Clnzpm (?). Surg eval (+)/No further action. History of electrolyte imbalance (Acute) Neck pain on left side (Acute) with shoulder, upper back pain.. torticollis, radiating into left hip/leg Pulmonary nodule 1 cm or greater in diameter (Chronic) Therapeutic opioid induced constipation (Acute) Sphincter of Oddi dysfunction (Chronic) Abnormal CT scan, kidney (Acute) Intrahepatic bile duct dilation (Acute) Common bile duct dilatation (Chronic) Has been dilated for quite some time, now more-so. Normal LFTs. Known gallstones. 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 Hypocalcemia Anxiety Depression Hyperlipidemia Family history of multiple endocrine neoplasia, type 1 PTSD (post-traumatic stress disorder) Per pt. states no triggers at this time. Surgical History History of laparoscopic cholecystectomy (~11/2023) H/O parathyroidectomy Family History Mother Anxiety Asthma Depression Sister Anxiety Depression Father Cancer lung & stomach Depression Diabetes Hypertension MEN 1 (multiple endocrine neoplasia) Social History Smoking/Tobacco Use Status: Never Smoking risk assessment performed?: Yes Alcohol Intake: never Drug use: Current Sobriety Substance use type: former substance user, crack/cocaine, heroin and painkillers Details: stopped using substances for the past 4 years Adopted: No Caregiver/Support person: No Foster care: No Household members: none Housing: apartment Number of Children: 0 Communication Needs: None Education Level: high school Do you need help understanding health information?: Never current occupation: [employer] Pets and animals: Yes (Ally) Pets and animals: dog(s) Sexually active: No Do you think of yourself as: straight/heterosexual Current gender identity: male What is your relationship status?: How often do you talk on the phone with friends or family?: twice per week How often do you get together with friends or relatives?: never Do you belong to any clubs or organized social groups?: no Panel score (0-1 are the most socially isolated patients): 0 What type of physical activity do you participate in: walking Duration: 15-30 minutes/day Frequency: 5-6 times per week Maryam/Denominational: Mormon Special maryam needs: No Seatbelt use: always Helmet use: Yes Helmet use: always Drive intox or ride w/intox p d driver: No Do you feel safe at home: Yes Do you feel safe in your relationship?: Yes
[2025-05-16 07:22] VITALS: RESP 18
[2025-05-16 07:30] LABS: Abs Immature Grans 0.02 10^3/uL (0.0-0.06); HCT 30.3 % (40.0-50.0); HGB 9.2 g/dL (13.5-17.5); Immature Grans % 0.3 %; MCH 23.8 pg (27.0-33.0); MCHC 30.4 % (32.0-36.0); MCV 78 fL (80-95); MPV 10.3 fL (8.0-11.0); Platelet Count 349 10^3/uL (130-400); RBC 3.87 10^6/uL (4.36-5.78); RDW 16.9 % (11.8-14.1); RDW-SD 48.4 fL; WBC 6.28 10^3/uL (4.4-10.8)
[2025-05-16 07:33] VITALS: BP 120/63; PULSE 100; RESP 18; O2SAT 100
[2025-05-16 07:34] LABS: Glucose Negative (Negative)
[2025-05-16 07:44] LABS: Anion Gap 6.3 mmol/L (3-11); BUN 9 mg/dL (9-23); CO2 32.7 mmol/L (20.0-31.0); Calcium 8.9 mg/dL (8.3-10.6); Chloride 101 mmol/L (98-107); Glucose 94 mg/dL (74-106); Potassium 3.6 mmol/L (3.5-5.1); Sodium 140 mmol/L (136-145)
[2025-05-16 07:45] LABS: Troponin I < 3 ng/L (<54)
[2025-05-16] MEDS: Acetaminophen 500 MG TAB 1000 MG PO (07:50)
[2025-05-16] MEDS: Normal Saline 500 ML IV (07:50)
--- NOTE | 2025-05-16 08:00 | DI.[facility]AD_ITS ---
PROCEDURE INFORMATION: Exam: XR Chest Exam date and time: 05/16/2025 7:31 AM Age: 29 years old Clinical indication: Other: Unspecified; Chest pain TECHNIQUE: Imaging protocol: Radiologic exam of the chest. Views: 2 views. COMPARISON: CR XR CHEST 2V PA LATERAL 05/01/2025 6:29 PM FINDINGS: Limitations: Low lung volumes. Lungs: Unremarkable. No consolidation. Pleural spaces: Unremarkable. No pleural effusion. No pneumothorax. Heart/Mediastinum: Unremarkable. No cardiomegaly. Bones/joints: Unremarkable. IMPRESSION: No evidence of active cardiopulmonary disease. Dictated and Authenticated by: Reta Singh MD. Orderin Yaneth Vasquez MD
[2025-05-16 08:12] LABS: COVID-19 PCR Negative (Negative); RSV PCR Negative (Negative)
[2025-05-16 08:39] VITALS: BP 124/78; PULSE 85; RESP 18; TEMP 37.1; O2SAT 97
== END 2025-05-16 17:09 | disposition home or self-care (01) ==
PROVIDERS: Emergency Provider Emergency Medicine; PCP Physician Assistant
DX: R07.9 Chest pain, unspecified (principal)
CPT/HCPCS: 36415; 80048; 87637; 93005; 96360; 99285; 71046; 81003; 84484; 85025; 93010; 99284

== ENCOUNTER 2025-05-16 15:00 | Emergency (ER) | payer OTHER, SELFPAY ==
[2025-05-16 15:01] VITALS: BP 140/87; PULSE 105; RESP 18; TEMP 36.4; O2SAT 98
[2025-05-16 15:14] VITALS: RESP 20
--- NOTE | 2025-05-16 15:15 | DI.CT_ITS ---
Exam(s) CT CHEST PE CTA EXAM: CT CHEST PE CTA CLINICAL HISTORY: hx of PE, with pleuritic chest pain. TECHNIQUE: Imaging Protocol: Axial CT angiography was performed with multi- slice acquisition and multi-planar and/or 3D reconstructions. Lung Computer Aided Detection (CAD) was utilized. CONTRAST MATERIAL: Intravenous: Omnipaque 350 contrast volume:100 mL COMPARISON: CT CT CHEST PE CTA from 03/04/[address] CHEST PE CTA from 04/21/2025 CR,XR XR CHEST 2V PA LATERAL from 05/16/2025 FINDINGS: Tracheobronchial tree: Patent where visualized. No bronchiectasis. Pulmonary parenchyma: No consolidation or dominant measurable mass. No architectural distortion. Pulmonary Arteries: Peripheral pulmonary arteries are not ideally opacified. No pulmonary emboli are seen to the segmental level. Mediastinum and Jessika: No dominant adenopathy or fluid collection. The esophagus is unremarkable. Visualized thyroid gland: Unremarkable. Pleura: No effusion or pneumothorax. Heart: The heart is not dilated. No coronary artery calcifications are seen. No pericardial effusion. Aorta: Thoracic aorta non-dilated. No evidence of dissection. Upper abdomen: Unremarkable. Soft tissues: Bilateral gynecomastia. Bones: Within normal limits for the patient's age. IMPRESSION: 1. No evidence of pulmonary embolism, thoracic aortic dissection or aneurysm. 2. There is no acute pulmonary process. RADIATION DOSE DELIVERED: 249.53mGy.cm Total DLP DATA REPOSITORY: All CT scans at this facility are submitted to the National Radiology Data Registry (NRDR) Dose Index Registry (DIR) with the [employer] (A[employer]). RADIATION OPTIMIZATION: All CT scans at this facility use at least one of these dose optimization techniques: automated exposure control; mA and/or kV adjustment per patient size (includes targeted exams where dose is matched to clinical indication); or iterative reconstruction.
--- NOTE | 2025-05-16 15:15 | DI.US_ITS ---
Exam(s) US UPPER EXTREMITY VENOUS RT EXAM: US UPPER EXTREMITY VENOUS RT CLINICAL HISTORY: hx of DVT with RUE pain. TECHNIQUE: Ultrasound examination of the right upper extremity venous system(s) is performed using grayscale, color-flow, and spectral Doppler analysis. COMPARISON: No exams were available for comparison FINDINGS: Right Deep Veins:The visualized internal jugular and subclavian veins are patent. The axillary and brachial veins are patent and display normal color flow, augmentation and compressibility. Superficial Veins:The visualized cephalic, median cubital and basilic veins are patent and display normal color flow, augmentation and compressibility. Soft tissues: Unremarkable. IMPRESSION: No evidence of a right upper extremity deep venous thrombosis. DATA REPOSITORY:
[2025-05-16] MEDS: Normal Saline - Diluent 50 ML VIAL IJ (16:20)
[2025-05-16] MEDS: Normal Saline Flush 10 ML SYR IVP (16:20)
[2025-05-16] MEDS: Omnipaque 350 MG/ML 50 ML BTL IJ (16:20)
[2025-05-16] MEDS: Omnipaque 350 MG/ML 500 ML BTL-Imaging package IJ (16:21)
[2025-05-16 17:00] VITALS: BP 141/76; PULSE 100; RESP 20; O2SAT 96
--- NOTE | 2025-05-18 07:08 | W.ED.GENAD ---
Discharge Plan Disposition Patient Disposition: Home Discharge Details Clinical Impression: Chest pain Primary Care Provider: Sanjana Pritchett ED Provider: Jamir Matson Home Meds and New Rx's Prescriptions: No Action gabapentin 300 mg capsule 300 mg PO BID Qty: 180 3RF omeprazole 40 mg capsule,delayed release(DR/EC) 40 mg PO DAILY Qty: 90 3RF lorazepam 1 mg tablet 1 mg PO DAILY PRN (Reason: anxiety) Qty: 10 0RF Rx Instructions: Use when considering ER visit cyclobenzaprine 10 mg tablet 10 mg PO TID PRN (Reason: muscle spasm) Qty: 30 3RF Eliquis 5 mg tablet 5 mg PO BID Qty: 60 6RF methadone 10 mg/5 mL solution 100 mg PO QAM calcitriol 0.5 mcg capsule 1 mcg PO .COMPLEX Qty: 270 3RF Rx Instructions: 1 mcg orally t2 tabs qam and 1 tab QHS; folic acid 1 mg tablet 1 mg PO DAILY Qty: 30 6RF calcium carbonate [Tums] 200 mg calcium (500 mg) tablet,chewable 2,000 mg PO BID polyethylene glycol 3350 17 gram powder in packet 17 g PO BID PRN magnesium gluconate 27 mg magnesium (500 mg) tablet 500 mg PO BID Rx Instructions: takes 500mg QAM and 1000mg QHS diclofenac sodium 1 % gel 2 g topical QID Qty: 50 0RF Rx Instructions: apply to single elbow, wrist or hand; for hand includes palm/fingers/back of hand famotidine 20 mg tablet 20 mg PO BID Qty: 30 0RF sucralfate 1 gram tablet 1 g PO QACHS Qty: 90 0RF ondansetron 4 mg tablet,disintegrating 4 mg PO Q8H PRNQty: 20 0RF clonazepam 1 mg tablet 1 mg PO BID Qty: 10 0RF prochlorperazine maleate [Compazine] 10 mg tablet 10 mg PO Q6H PRNQty: 10 0RF Discharge Instructions Instructions: Chest Pain (DC) Additional Instructions: Please follow-up with your primary care provider regarding your visit to the emergency department today. Be sure to discuss results of all test performed here today to include radiology, and laboratory testing as well as results for any pending cultures. Should your symptoms worsen, or if you develop new concerning symptoms, please return immediately emergency department for further evaluation. Stand Alone Forms: Portal Information Discharge Data Discharge Date/Time-TO BE ENTERED AT DEPARTURE: 05/16/25 17:09 HPI General Date/Time Provider Initiated Documentation: 05/16/25 15:06. HPI Narrative: MDM/Narrative: Initial Assessment: 29-year-old male presents again for right upper extremity and chest pain. Differential Diagnosis: - Worsening PE: Persistent tachycardia, history of PE/DVT. Obtain CTA chest. - Recurrence of right upper extremity DVT: Worsening throbbing pain similar to past DVT, history of PE/DVT. Obtain ultrasound of right upper extremity. ED Course: CTA and ultrasound negative for acute thrombus will discharge follow-up primary care.. Clinical Impression: - Right upper extremity pain - Chest pain Disposition: Home HPI: The patient is a 29-year-old male with a medical history significant for deep vein thrombosis (DVT) and pulmonary embolism (PE), currently managed with Apixaban (Eliquis). He presented to the emergency department (ED) with complaints of right upper extremity pain, swelling, and pyrexia. Initial evaluation considered a viral syndrome following a negative troponin test. His vital signs showed improvement with the administration of acetaminophen (Tylenol). A ward maid expressed concern regarding a potential breakthrough thrombus and referred the patient back to the ED for further assessment of a possible right upper extremity DVT/PE. Post-discharge, the patient reported exacerbation of pain, describing it as throbbing and reminiscent of previous DVT/PE episodes, with radiation into the chest. He also experienced dyspnea and pleuritic pain. Prior to arrival, he ingested 1000 mg of acetaminophen. The patient denies any additional new symptoms. ROS: Negative besides as mentioned above Exam: Vital signs: Reviewed. General Appearance: Alert and oriented. No acute distress. HEENT: NCAT, EOMI, not icteric. External ears normal. No rhinorrhea. Moist mucous membranes. Neck: Supple, full range of motion, no observable masses, No meningeal sign. Respiratory: Clear breath sounds bilaterally. Cardiovascular: Radial pulses 2+ bilaterally. Gastrointestinal: Soft, nondistended, No rebound tenderness. Back: No midline tenderness to palpation or palpable step-offs of the C/T/L spine. Musculoskeletal: Mild tenderness to palpation of proximal right anterior upper extremity extending into right anterior chest wall. Skin: Warm and dry, no rash. Neurological: Normal Gait, Grossly intact. Psychiatric: Appropriate for situation. Radiology: Accession No. : [id number] Creator : DIANE MARTINEZ Dictator : DIANE MARTINEZ Onion Farmer : Recording Artist : DIANE MARTINEZ Approver2 : Report Date : 05/16/2025 16:38:58 Exam(s) CT CHEST PE CTA EXAM: CT CHEST PE CTA CLINICAL HISTORY: hx of PE, with pleuritic chest pain. TECHNIQUE: Imaging Protocol: Axial CT angiography was performed with multi-slice acquisition and multi-planar and/or 3D reconstructions. Lung Computer Aided Detection (CAD) was utilized. CONTRAST MATERIAL: Intravenous: Omnipaque 350 contrast volume:100 mL COMPARISON: CT CT CHEST PE CTA from 03/04/[address] CHEST PE CTA from 04/21/2025 CR,XR XR CHEST 2V PA LATERAL from 05/16/2025 FINDINGS: Tracheobronchial tree: Patent where visualized. No bronchiectasis. Pulmonary parenchyma: No consolidation or dominant measurable mass. No architectural distortion. Pulmonary Arteries: Peripheral pulmonary arteries are not ideally opacified. No pulmonary emboli are seen to the segmental level. Mediastinum and Jessika: No dominant adenopathy or fluid collection. The esophagus is unremarkable. Visualized thyroid gland: Unremarkable. Pleura: No effusion or pneumothorax. Heart: The heart is not dilated. No coronary artery calcifications are seen. No pericardial effusion. Aorta: Thoracic aorta non-dilated. No evidence of dissection. Upper abdomen: Unremarkable. Soft tissues: Bilateral gynecomastia. Bones: Within normal limits for the patient's age. IMPRESSION: 1. No evidence of pulmonary embolism, thoracic aortic dissection or aneurysm. 2. There is no acute pulmonary process. RADIATION DOSE DELIVERED: 249.53mGy.cm Total DLP DATA REPOSITORY: All CT scans at this facility are submitted to the National Radiology Data Registry (NRDR) Dose Index Registry (DIR) with the [employer] (ACR). RADIATION OPTIMIZATION: All CT scans at this facility use at least one of these dose optimization techniques: automated exposure control; mA and/or kV adjustment per patient size (includes targeted exams where dose is matched to clinical indication); or iterative reconstruction. Accession No. : [id number] Creator : DIANE MARTINEZ Dictator : DIANE MARTINEZ Onion Farmer : Recording Artist : DIANE MARTINEZ Approver2 : Report Date : 05/16/2025 16:16:09 Exam(s) US UPPER EXTREMITY VENOUS RT EXAM: US UPPER EXTREMITY VENOUS RT CLINICAL HISTORY: hx of DVT with RUE pain. TECHNIQUE: Ultrasound examination of the right upper extremity venous system(s) is performed using grayscale, color-flow, and spectral Doppler analysis. COMPARISON: No exams were available for comparison FINDINGS: Right Deep Veins:The visualized internal jugular and subclavian veins are patent. The axillary and brachial veins are patent and display normal color flow, augmentation and compressibility. Superficial Veins:The visualized cephalic, median cubital and basilic veins are patent and display normal color flow, augmentation and compressibility. Soft tissues: Unremarkable. IMPRESSION: No evidence of a right upper extremity deep venous thrombosis. DATA REPOSITORY: Related Data Home Medications ?Medication ?Instructions ?Recorded ?Confirmed calcium carbonate (Tums) 2,000 mg PO BID 02/02/23 05/16/25 methadone 10 mg/5 mL oral solution 100 mg PO QAM 06/12/23 05/16/25 gabapentin 300 mg capsule 300 mg PO BID #180 caps 06/01/24 05/16/25 calcitriol 0.5 mcg capsule 1 mcg (2 x 0.5 mcg) PO .COMPLEX 06/29/24 05/16/25 #270 caps omeprazole 40 mg capsule,delayed 40 mg PO DAILY #90 caps 07/27/24 05/16/25 release polyethylene glycol 3350 17 gram 17 g PO BID PRN 10/15/24 05/16/25 oral powder packet lorazepam 1 mg tablet 1 mg PO DAILY PRN anxiety #10 tabs 10/19/24 05/16/25 cyclobenzaprine 10 mg tablet 10 mg PO TID PRN muscle spasm #30 11/16/24 05/16/25 tabs magnesium gluconate 27 mg 500 mg PO BID 01/30/25 05/16/25 magnesium (500 mg) tablet diclofenac sodium 1 % topical gel 2 g topical QID #50 grams 02/03/25 05/16/25 apixaban 5 mg tablet (Eliquis) 5 mg PO BID #60 tabs 03/08/25 05/16/25 famotidine 20 mg tablet 20 mg PO BID #30 tabs 03/15/25 05/16/25 ondansetron 4 mg disintegrating 4 mg PO Q8H PRN #20 tabs 03/15/25 05/16/25 tablet sucralfate 1 gram tablet 1 g PO QACHS #90 tabs 03/15/25 05/16/25 prochlorperazine maleate 10 mg 10 mg PO Q6H PRN #10 tabs 03/16/25 05/16/25 tablet (Compazine) folic acid 1 mg tablet 1 mg PO DAILY #30 tabs 03/17/25 05/16/25 clonazepam 1 mg tablet 1 mg PO BID #10 tabs 04/03/25 05/16/25 Previous Rx's ?Medication ?Instructions ?Recorded gabapentin 300 mg capsule 300 mg PO BID #180 caps 06/01/24 calcitriol 0.5 mcg capsule 1 mcg (2 x 0.5 mcg) PO .COMPLEX 06/29/24 #270 caps omeprazole 40 mg capsule,delayed 40 mg PO DAILY #90 caps 07/27/24 release lorazepam 1 mg tablet 1 mg PO DAILY PRN anxiety #10 tabs 10/19/24 cyclobenzaprine 10 mg tablet 10 mg PO TID PRN muscle spasm #30 11/16/24 tabs diclofenac sodium 1 % topical gel 2 g topical QID #50 grams 02/03/25 apixaban 5 mg tablet (Eliquis) 5 mg PO BID #60 tabs 03/08/25 famotidine 20 mg tablet 20 mg PO BID #30 tabs 03/15/25 ondansetron 4 mg disintegrating 4 mg PO Q8H PRN #20 tabs 03/15/25 tablet sucralfate 1 gram tablet 1 g PO QACHS #90 tabs 03/15/25 prochlorperazine maleate 10 mg 10 mg PO Q6H PRN #10 tabs 03/16/25 tablet (Compazine) folic acid 1 mg tablet 1 mg PO DAILY #30 tabs 03/17/25 clonazepam 1 mg tablet 1 mg PO BID #10 tabs 04/03/25 Allergies Allergy/AdvReac Type Severity Reaction Status Date / Time Penicillins Allergy Skin Rash Verified 05/16/25 15:05 marijuana (cannabis) AdvReac Severe Paranoia Verified 05/16/25 15:05 amoxicillin AdvReac Intermediate Nausea Verified 05/16/25 15:05 codeine AdvReac Intermediate pass out Verified 05/16/25 15:05 dextromethorphan (From AdvReac Intermediate got Verified 05/16/25 15:05 NyQuil) really hot and sweaty doxylamine (From NyQuil) AdvReac Intermediate got Verified 05/16/25 15:05 really hot and sweaty pseudoephedrine (From NyQuil) AdvReac Intermediate got Verified 05/16/25 15:05 really hot and sweaty General Stated Complaint: Vascular ADRIANA: 3 Course Vital Signs Vital signs: Vital Signs Temperature 36.4 C 05/16/25 15:01 Pulse 105 H 05/16/25 15:01 Respiratory Rate 18 05/16/25 15:01 Blood Pressure 140/87 05/16/25 15:01 Pulse Oximetry 98 05/16/25 15:01 Temperature 36.4 C 05/16/25 15:01 Pulse 100 H 05/16/25 17:00 Respiratory Rate 20 05/16/25 17:00 Respiratory Effort Normal 05/16/25 15:14 Respiratory Depth Normal 05/16/25 15:14 Respiratory Pattern Normal 05/16/25 15:14 Blood Pressure 141/76 H 05/16/25 17:00 Blood Pressure Mean 97 05/16/25 17:00 Pulse Oximetry 96 05/16/25 17:00 Oxygen Delivery Method Room Air 05/16/25 17:00 Oxygen Flow Rate 0 05/16/25 17:00 Pain Level 4 05/16/25 17:04 Medical Decision Making Quality:SDOH Health Related Social Needs: Health related social needs lonely/isolated Health related social needs details patient here frequently due to anxiety. PFSH All Active Problems (Updated 05/16/25 @ 16:45 by Jamir Matson MD) Chest pain (Acute) Chest pain, unspecified (Acute) Palpitations (Acute) Light-headed feeling (Acute) Irritation of radial nerve (Acute) Chest pain (Acute) History of fever (Acute) Chest pain (Acute) Arm pain, right (Acute) Varicose vein of leg (Acute) Pain in right leg (Acute) Breath shortness (Acute) Hyperhomocysteinemia (Acute) Pulmonary infiltrates (Acute) Snoring (Acute) Pleural effusion (Acute) Rt groin pain (Acute) Rash (Acute) Shortness of breath (Acute) Edema, peripheral (Acute) Anxiety (Chronic) Chest discomfort (Acute) Pulmonary embolism and infarction (Acute) Left pulmonary infiltrate on CXR (Acute) Bilateral pulmonary embolism (Acute) Tenderness of neck (Acute) Right elbow pain (Acute) Acute leg pain (Acute) Bronchitis (Acute) Well adult health check (Acute) Obstructive sleep apnea (Chronic) Metabolic dysfunction-associated fatty liver disease (MAFLD) (Acute) Fatty liver (Acute) IBS (irritable bowel syndrome) (Chronic) Obesity (Chronic) Migraine with aura (Acute) Testicle lump (Acute) Pes anserine bursitis (Acute) Left-sided Flower's palsy (Acute) Opiate dependence, continuous (Acute) 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 Possible 2' Methadone, Clnzpm (?). Surg eval (+)/No further action. History of electrolyte imbalance (Acute) Neck pain on left side (Acute) with shoulder, upper back pain.. torticollis, radiating into left hip/leg Pulmonary nodule 1 cm or greater in diameter (Chronic) Therapeutic opioid induced constipation (Acute) Sphincter of Oddi dysfunction (Chronic) Abnormal CT scan, kidney (Acute) Intrahepatic bile duct dilation (Acute) Common bile duct dilatation (Chronic) Has been dilated for quite some time, now more-so. Normal LFTs. Known gallstones. 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 Hypocalcemia Anxiety Depression Hyperlipidemia Family history of multiple endocrine neoplasia, type 1 PTSD (post-traumatic stress disorder) Per pt. states no triggers at this time. Surgical History History of laparoscopic cholecystectomy (~11/2023) H/O parathyroidectomy Family History Mother Anxiety Asthma Depression Sister Anxiety Depression Father Cancer lung & stomach Depression Diabetes Hypertension MEN 1 (multiple endocrine neoplasia) Social History Smoking/Tobacco Use Status: Never Smoking risk assessment performed?: Yes Alcohol Intake: never Drug use: Current Sobriety Substance use type: former substance user, crack/cocaine, heroin and painkillers Details: stopped using substances for the past 4 years Adopted: No Caregiver/Support person: No Foster care: No Household members: none Housing: apartment Number of Children: 0 Communication Needs: None Education Level: high school Do you need help understanding health information?: Never current occupation: [employer] Pets and animals: Yes (Ally) Pets and animals: dog(s) Sexually active: No Do you think of yourself as: straight/heterosexual Current gender identity: male What is your relationship status?: How often do you talk on the phone with friends or family?: twice per week How often do you get together with friends or relatives?: never Do you belong to any clubs or organized social groups?: no Panel score (0-1 are the most socially isolated patients): 0 What type of physical activity do you participate in: walking Duration: 15-30 minutes/day Frequency: 5-6 times per week Maryam/Mosque: Restoration Special maryam needs: No Seatbelt use: always Helmet use: Yes Helmet use: always 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
== END 2025-05-16 17:09 | disposition home or self-care (01) ==
PROVIDERS: Emergency Provider General Practice; PCP Physician Assistant
DX: R07.9 Chest pain, unspecified (principal); R00.0 Tachycardia, unspecified; R06.02 Shortness of breath; N18.9 Chronic kidney disease, unspecified
CPT/HCPCS: 71275; 99285; 93971; Q9967

== ENCOUNTER 2025-05-18 05:53 | Emergency (ER) | payer OTHER, SELFPAY ==
[2025-05-18] VITALS (18 sets, daily range): BP systolic 108–148; BP diastolic 58–74; PULSE 84–122; RESP 12–26; TEMP 36.4; O2SAT 89–99
--- NOTE | 2025-05-18 05:45 | RT.EKG_ITS ---
APPROVED REPORT Exam: Resting ECG Reason for Exam: Chest Pain Patient Location: E HR:96 bpm ECG Measurements Heart Rate 96 AXIS CO 174 P 45 QRSd 96 QRS 23 QT 356 T 42 QTc 451 Conclusion Sinus rhythm...normal P axis, V-rate 60- 99 No STEMI
--- NOTE | 2025-05-18 06:15 | DI.CT_ITS ---
Exam(s) CT CHEST PE CTA EXAM: CT CHEST PE CTA CLINICAL HISTORY: left chest pain with hemoptysis. TECHNIQUE: Imaging Protocol: Axial CT angiography was performed with multi- slice acquisition and multi-planar and/or 3D reconstructions. Lung Computer Aided Detection (CAD) was utilized. CONTRAST MATERIAL: Intravenous: Omnipaque 350 contrast volume:88 mL COMPARISON: CT CT CHEST PE CTA from 03/04/[address] ABDOMEN PELVIS W from 04/10/[address] CHEST PE CTA from 04/21/2025 MR MR ABDOMEN WO/W from 04/26/2025 CR,XR XR CHEST 2V PA LATERAL from 05/16/[address] CHEST PE CTA from 05/16/2025 FINDINGS: Tracheobronchial tree: Patent where visualized. No bronchiectasis. Pulmonary parenchyma: No consolidation or dominant measurable mass. No architectural distortion. Pulmonary Arteries: No evidence of filling defect to suggest pulmonary emboli. Mediastinum and Jessika: No dominant adenopathy or fluid collection. The esophagus is unremarkable. Visualized thyroid gland: Unremarkable. Pleura: No effusion or pneumothorax. Heart: The heart is not dilated. No coronary artery calcifications are seen. No pericardial effusion. Aorta: Thoracic aorta non-dilated. No evidence of dissection. Upper abdomen: There is a stable hypodensity in the superior pole of the right kidney. This was shown to be a cyst on recent MRI examination. Status post cholecystectomy. Soft tissues: There is bilateral gynecomastia. Bones: Within normal limits for the patient's age. IMPRESSION: 1. No evidence of pulmonary embolism, thoracic aortic dissection or aneurysm. 2. There is no acute pulmonary process. 3. The preliminary [facility] report was reviewed. RADIATION DOSE DELIVERED: 356.52mGy.cm Total DLP DATA REPOSITORY: All CT scans at this facility are submitted to the National Radiology Data Registry (NRDR) Dose Index Registry (DIR) with the [employer] (ACR). RADIATION OPTIMIZATION: All CT scans at this facility use at least one of these dose optimization techniques: automated exposure control; mA and/or kV adjustment per patient size (includes targeted exams where dose is matched to clinical indication); or iterative reconstruction.
[2025-05-18 06:42] LABS: Abs Immature Grans 0.01 10^3/uL (0.0-0.06); HCT 29.4 % (40.0-50.0); HGB 8.9 g/dL (13.5-17.5); Immature Grans % 0.2 %; MCH 23.9 pg (27.0-33.0); MCHC 30.3 % (32.0-36.0); MCV 79 fL (80-95); MPV 10.6 fL (8.0-11.0); Platelet Count 348 10^3/uL (130-400); RBC 3.72 10^6/uL (4.36-5.78); RDW 17.3 % (11.8-14.1); RDW-SD 49.9 fL; WBC 5.78 10^3/uL (4.4-10.8)
[2025-05-18] MEDS: ACETAMINOPHEN 1,000 MG/100 ML BAG 400 MG IVPB (06:51)
[2025-05-18 06:59] LABS: INR 1.0 (0.9-1.1); PTT Activated 26.4 sec (20.6-30.2); Prothrombin Time 9.8 sec (9.1-11.1)
[2025-05-18 07:09] LABS: ALT 33 U/L (10-49); AST 27 U/L (<34); Albumin 4.0 g/dL (3.2-5.0); Alkaline Phosphatase 125 U/L (46-116); Anion Gap 8 mmol/L (3-11); BUN 11 mg/dL (9-23); Bilirubin, Total 0.20 mg/dL (0.2-1.2); CO2 32.8 mmol/L (20.0-31.0); Calcium 9.0 mg/dL (8.3-10.6); Chloride 99 mmol/L (98-107); Glucose 108 mg/dL (74-106); Potassium 3.6 mmol/L (3.5-5.1); Sodium 140 mmol/L (136-145); Total Protein 7.4 g/dL (5.7-8.2)
[2025-05-18 07:16] LABS: Troponin I < 3 ng/L (<54)
[2025-05-18] MEDS: Normal Saline - Diluent 50 ML VIAL IJ (07:26)
[2025-05-18] MEDS: Omnipaque 350 MG/ML 100 ML BTL IJ (07:26)
--- NOTE | 2025-05-18 07:29 | W.ED.GENAD ---
Discharge Plan Discharge Details Chief Complaint: Chest Pain Clinical Impression: Hemoptysis Primary Care Provider: Sanjana Pritchett ED Provider: Richy Eagle Home Meds and New Rx's Prescriptions: No Action gabapentin 300 mg capsule 300 mg PO BID Qty: 180 3RF omeprazole 40 mg capsule,delayed release(DR/EC) 40 mg PO DAILY Qty: 90 3RF lorazepam 1 mg tablet 1 mg PO DAILY PRN (Reason: anxiety) Qty: 10 0RF Rx Instructions: Use when considering ER visit cyclobenzaprine 10 mg tablet 10 mg PO TID PRN (Reason: muscle spasm) Qty: 30 3RF Eliquis 5 mg tablet 5 mg PO BID Qty: 60 6RF methadone 10 mg/5 mL solution 100 mg PO QAM calcitriol 0.5 mcg capsule 1 mcg PO .COMPLEX Qty: 270 3RF Rx Instructions: 1 mcg orally t2 tabs qam and 1 tab QHS; folic acid 1 mg tablet 1 mg PO DAILY Qty: 30 6RF calcium carbonate [Tums] 200 mg calcium (500 mg) tablet,chewable 2,000 mg PO BID polyethylene glycol 3350 17 gram powder in packet 17 g PO BID PRN magnesium gluconate 27 mg magnesium (500 mg) tablet 500 mg PO BID Rx Instructions: takes 500mg QAM and 1000mg QHS diclofenac sodium 1 % gel 2 g topical QID Qty: 50 0RF Rx Instructions: apply to single elbow, wrist or hand; for hand includes palm/fingers/back of hand famotidine 20 mg tablet 20 mg PO BID Qty: 30 0RF sucralfate 1 gram tablet 1 g PO QACHS Qty: 90 0RF ondansetron 4 mg tablet,disintegrating 4 mg PO Q8H PRNQty: 20 0RF clonazepam 1 mg tablet 1 mg PO BID Qty: 10 0RF prochlorperazine maleate [Compazine] 10 mg tablet 10 mg PO Q6H PRNQty: 10 0RF HPI General Date/Time Provider Initiated Documentation: 05/18/25 06:05. HPI Narrative: This is a 29-year-old male with a past medical history significant for anxiety, depression, high cholesterol, men type I, multiple electrolyte abnormalities with subsequent parathyroidectomy on 03/26/2022 at [facility] [place], PTSD, GERD, cholecystectomy 12/07, bilateral pulmonary embolisms with left-sided pulmonary infarct (diagnosed 02/2025) now on apixaban who presents today for hemoptysis. Patient states he has been taking all his medications as directed. He woke up tonight with left-sided chest pain, he then coughed and had a large bit of hemoptysis. He did not take a picture of it. He then had a few more coughs with some small blood tingeing after that. Because of this he came in for further assessment. He admits to a pleuritic component of pain. No change in his medications. No other complaints at this time. Related Data Home Medications ?Medication ?Instructions ?Recorded ?Confirmed calcium carbonate (Tums) 2,000 mg PO BID 02/02/23 05/16/25 methadone 10 mg/5 mL oral solution 100 mg PO QAM 06/12/23 05/16/25 gabapentin 300 mg capsule 300 mg PO BID #180 caps 06/01/24 05/16/25 calcitriol 0.5 mcg capsule 1 mcg (2 x 0.5 mcg) PO .COMPLEX 06/29/24 05/16/25 #270 caps omeprazole 40 mg capsule,delayed 40 mg PO DAILY #90 caps 07/27/24 05/16/25 release polyethylene glycol 3350 17 gram 17 g PO BID PRN 10/15/24 05/16/25 oral powder packet lorazepam 1 mg tablet 1 mg PO DAILY PRN anxiety #10 tabs 10/19/24 05/16/25 cyclobenzaprine 10 mg tablet 10 mg PO TID PRN muscle spasm #30 11/16/24 05/16/25 tabs magnesium gluconate 27 mg 500 mg PO BID 01/30/25 05/16/25 magnesium (500 mg) tablet diclofenac sodium 1 % topical gel 2 g topical QID #50 grams 02/03/25 05/16/25 apixaban 5 mg tablet (Eliquis) 5 mg PO BID #60 tabs 03/08/25 05/16/25 famotidine 20 mg tablet 20 mg PO BID #30 tabs 03/15/25 05/16/25 ondansetron 4 mg disintegrating 4 mg PO Q8H PRN #20 tabs 03/15/25 05/16/25 tablet sucralfate 1 gram tablet 1 g PO QACHS #90 tabs 03/15/25 05/16/25 prochlorperazine maleate 10 mg 10 mg PO Q6H PRN #10 tabs 03/16/25 05/16/25 tablet (Compazine) folic acid 1 mg tablet 1 mg PO DAILY #30 tabs 03/17/25 05/16/25 clonazepam 1 mg tablet 1 mg PO BID #10 tabs 04/03/25 05/16/25 Previous Rx's ?Medication ?Instructions ?Recorded gabapentin 300 mg capsule 300 mg PO BID #180 caps 06/01/24 calcitriol 0.5 mcg capsule 1 mcg (2 x 0.5 mcg) PO .COMPLEX 06/29/24 #270 caps omeprazole 40 mg capsule,delayed 40 mg PO DAILY #90 caps 07/27/24 release lorazepam 1 mg tablet 1 mg PO DAILY PRN anxiety #10 tabs 10/19/24 cyclobenzaprine 10 mg tablet 10 mg PO TID PRN muscle spasm #30 11/16/24 tabs diclofenac sodium 1 % topical gel 2 g topical QID #50 grams 02/03/25 apixaban 5 mg tablet (Eliquis) 5 mg PO BID #60 tabs 03/08/25 famotidine 20 mg tablet 20 mg PO BID #30 tabs 03/15/25 ondansetron 4 mg disintegrating 4 mg PO Q8H PRN #20 tabs 03/15/25 tablet sucralfate 1 gram tablet 1 g PO QACHS #90 tabs 03/15/25 prochlorperazine maleate 10 mg 10 mg PO Q6H PRN #10 tabs 03/16/25 tablet (Compazine) folic acid 1 mg tablet 1 mg PO DAILY #30 tabs 03/17/25 clonazepam 1 mg tablet 1 mg PO BID #10 tabs 04/03/25 Allergies Allergy/AdvReac Type Severity Reaction Status Date / Time Penicillins Allergy Skin Rash Verified 05/16/25 15:05 marijuana (cannabis) AdvReac Severe Paranoia Verified 05/16/25 15:05 amoxicillin AdvReac Intermediate Nausea Verified 05/16/25 15:05 codeine AdvReac Intermediate pass out Verified 05/16/25 15:05 dextromethorphan (From AdvReac Intermediate got Verified 05/16/25 15:05 NyQuil) really hot and sweaty doxylamine (From NyQuil) AdvReac Intermediate got Verified 05/16/25 15:05 really hot and sweaty pseudoephedrine (From NyQuil) AdvReac Intermediate got Verified 05/16/25 15:05 really hot and sweaty General Stated Complaint: Chest Pain ADRIANA: 3 Exam Narrative Exam Narrative: 1.Const: Well-nourished, Well-developed, appearing stated age 2.Eyes: PERRL, no conjunctival injection, and symmetrical lids. 3.ENT: Atraumatic external nose and ears. Moist MM. Neck: Symmetric, trachea midline, No thyromegaly. 4.CVS: +S1/S2, Peripheral pulses 2+ and equal in all extremities. Brisk capillary refill in all extremities. 5.RESP: Unlabored respiratory effort. Clear to auscultation bilaterally. No wheezes rales or rhonchi 6.GI: Soft, Nontender/Nondistended, No hepatosplenomegaly. No guarding or rebound. 7.MSK: Normocephalic/Atraumatic, Extremities w/o deformity or ttp No cyanosis or clubbing, Normal movement of all extremities 8.Skin: Warm, Dry. No rashes or lesions. 9.Neuro: sound printer II-XII grossly intact. Sensation grossly intact, no focal neurologic deficits. 10.Psych: (AAO) x3. Appropriate mood and affect Course Vital Signs Vital signs: Vital Signs Temperature 36.4 C L 05/18/25 05:58 Pulse 100 H 05/18/25 05:58 Respiratory Rate 20 05/18/25 05:58 Blood Pressure 146/58 H 05/18/25 05:58 Pulse Oximetry 94 05/18/25 05:58 Temperature 36.4 C L 05/18/25 05:58 Temperature Source Oral 05/18/25 05:58 Pulse 100 H 05/18/25 05:58 Respiratory Rate 18 05/18/25 07:05 Respiratory Effort Normal 05/18/25 07:05 Respiratory Depth Shallow 05/18/25 07:05 Respiratory Pattern Normal 05/18/25 07:05 Blood Pressure 146/58 H 05/18/25 05:58 Blood Pressure Position Sitting 05/18/25 05:58 Pulse Oximetry 94 05/18/25 05:58 Oxygen Delivery Method Room Air 05/18/25 05:58 Oxygen Flow Rate 0 05/18/25 05:58 Pain Level 5 05/18/25 07:05 Lab/Test Results Lab/Test Results: Laboratory Tests Range/Units 05/18/25 06:15 WBC (4.4-10.8) 10^3/uL 5.78 RBC (4.36-5.78) 10^6/uL 3.72 L Hgb (13.5-17.5) g/dL 8.9 L Hct (40.0-50.0) % 29.4 L MCV (80-95) fL 79 L MCH (27.0-33.0) pg 23.9 L MCHC (32.0-36.0) % 30.3 L RDW (11.8-14.1) % 17.3 H Plt Count (130-400) 10^3/uL 348 MPV (8.0-11.0) fL 10.6 Immature Gran % % 0.2 Neutrophils % % 60.9 Lymphocytes % % 22.5 Monocytes % % 11.9 Eosinophils % % 3.8 Basophils % % 0.7 Nucleated RBC % (0.0-0.3) % 0.0 Absolute Neutrophils (1.2-6.7) 10^3/uL 3.52 Absolute Lymphocytes (1.2-3.4) 10^3/uL 1.30 Absolute Monocytes (0.1-0.8) 10^3/uL 0.69 Absolute Eosinophils (0.0-0.7) 10^3/uL 0.22 Absolute Basophils (0.0-0.2) 10^3/uL 0.04 PT (9.1-11.1) sec 9.8 INR (0.9-1.1) 1.0 APTT (20.6-30.2) sec 26.4 Sodium (136-145) mmol/L 140 Potassium (3.5-5.1) mmol/L 3.6 Chloride (98-107) mmol/L 99 Carbon Dioxide (20.0-31.0) mmol/L 32.8 H Anion Gap (3-11) mmol/L 8 BUN (9-23) mg/dL 11 Creatinine (0.73-1.18) mg/dL 1.55 H Est GFR (CKD-EPI 2020) (mL/min/1.73m2) 52.35 Glucose (74-106) mg/dL 108 H Calcium (8.3-10.6) mg/dL 9.0 Total Bilirubin (0.2-1.2) mg/dL 0.20 AST (<34) U/L 27 ALT (10-49) U/L 33 Alkaline Phosphatase (46-116) U/L 125 H Troponin I (<54) ng/L < 3 Total Protein (5.7-8.2) g/dL 7.4 Albumin (3.2-5.0) g/dL 4.0 Medical Decision Making This is a 29-year-old male with a past medical history significant for anxiety, depression, high cholesterol, men type I, multiple electrolyte abnormalities with subsequent parathyroidectomy on 03/26/2022 at [facility] [place], PTSD, GERD, cholecystectomy 12/07, bilateral pulmonary embolisms with left-sided pulmonary infarct (diagnosed 02/2025) now on apixaban who presents today for hemoptysis. Patient states he has been taking all his medications as directed. He woke up tonight with left-sided chest pain, he then coughed and had a large bit of hemoptysis. He did not take a picture of it. He then had a few more coughs with some small blood tingeing after that. Because of this he came in for further assessment. He admits to a pleuritic component of pain. No change in his medications. No other complaints at this time. Exam demonstrates well-appearing male, clear lung sounds, slight tachycardia but otherwise stable vital signs. Differential includes pulmonary hemorrhage, less likely PE, bronchitis. Pneumonia. Will get imaging, rule out cardiac etiology, monitor closely and reassess. Patient will be signed out to my colleague for follow-up on labs and imaging. Quality:SDOH Health Related Social Needs: Health related social needs lonely/isolated Health related social needs details patient here frequently due to anxiety. PFSH All Active Problems (Updated 05/18/25 @ 07:31 by Richy Eagle DO) Hemoptysis (Acute) Chest pain (Acute) Chest pain, unspecified (Acute) Palpitations (Acute) Light-headed feeling (Acute) Irritation of radial nerve (Acute) Chest pain (Acute) History of fever (Acute) Chest pain (Acute) Arm pain, right (Acute) Varicose vein of leg (Acute) Pain in right leg (Acute) Breath shortness (Acute) Hyperhomocysteinemia (Acute) Pulmonary infiltrates (Acute) Snoring (Acute) Pleural effusion (Acute) Rt groin pain (Acute) Rash (Acute) Shortness of breath (Acute) Edema, peripheral (Acute) Anxiety (Chronic) Chest discomfort (Acute) Pulmonary embolism and infarction (Acute) Left pulmonary infiltrate on CXR (Acute) Bilateral pulmonary embolism (Acute) Tenderness of neck (Acute) Right elbow pain (Acute) Acute leg pain (Acute) Bronchitis (Acute) Well adult health check (Acute) Obstructive sleep apnea (Chronic) Metabolic dysfunction-associated fatty liver disease (MAFLD) (Acute) Fatty liver (Acute) IBS (irritable bowel syndrome) (Chronic) Obesity (Chronic) Migraine with aura (Acute) Testicle lump (Acute) Pes anserine bursitis (Acute) Left-sided Flower's palsy (Acute) Opiate dependence, continuous (Acute) 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 Possible 2' Methadone, Clnzpm (?). Surg eval (+)/No further action. History of electrolyte imbalance (Acute) Neck pain on left side (Acute) with shoulder, upper back pain.. torticollis, radiating into left hip/leg Pulmonary nodule 1 cm or greater in diameter (Chronic) Therapeutic opioid induced constipation (Acute) Sphincter of Oddi dysfunction (Chronic) Abnormal CT scan, kidney (Acute) Intrahepatic bile duct dilation (Acute) Common bile duct dilatation (Chronic) Has been dilated for quite some time, now more-so. Normal LFTs. Known gallstones. 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 Hypocalcemia Anxiety Depression Hyperlipidemia Family history of multiple endocrine neoplasia, type 1 PTSD (post-traumatic stress disorder) Per pt. states no triggers at this time. Surgical History History of laparoscopic cholecystectomy (~11/2023) H/O parathyroidectomy Family History Mother Anxiety Asthma Depression Sister Anxiety Depression Father Cancer lung & stomach Depression Diabetes Hypertension MEN 1 (multiple endocrine neoplasia) Social History Smoking/Tobacco Use Status: Never Smoking risk assessment performed?: Yes Alcohol Intake: never Drug use: Current Sobriety Substance use type: former substance user, crack/cocaine, heroin and painkillers Details: stopped using substances for the past 4 years Adopted: No Caregiver/Support person: No Foster care: No Household members: none Housing: apartment Number of Children: 0 Communication Needs: None Education Level: high school Do you need help understanding health information?: Never current occupation: [employer] Pets and animals: Yes (Ally) Pets and animals: dog(s) Sexually active: No Do you think of yourself as: straight/heterosexual Current gender identity: male What is your relationship status?: How often do you talk on the phone with friends or family?: twice per week How often do you get together with friends or relatives?: never Do you belong to any clubs or organized social groups?: no Panel score (0-1 are the most socially isolated patients): 0 What type of physical activity do you participate in: walking Duration: 15-30 minutes/day Frequency: 5-6 times per week Maryam/Pentecostalism: Rastafari Special maryam needs: No Seatbelt use: always Helmet use: Yes Helmet use: always Drive intox or ride w/intox shuttle truck driver: No Do you feel safe at home: Yes Do you feel safe in your relationship?: Yes
[2025-05-18] MEDS: Ondansetron 4 MG/2 ML VIAL IVP (08:28)
--- NOTE | 2025-05-18 08:31 | DI.VRAD_ITS ---
PROCEDURE INFORMATION: Exam: CTA Chest With Contrast Exam date and time: 05/18/2025 7:15 AM Age: 29 years old Clinical indication: Left-sided; Left chest pain with hemoptysis TECHNIQUE: Imaging protocol: Computed tomographic angiography of the chest with contrast. Exam focused on the arteries. 3D rendering (Not supervised by radiologist): MIP and/or 3D reconstructed images were created by the technologist. COMPARISON: 1. CT CHEST PE CTA 05/16/2025 4:[address] CHEST PE CTA 04/21/2025 8:57 AM FINDINGS: Pulmonary arteries: No filling defects in the central, lobar, or proximal segmental pulmonary arteries to suggest pulmonary emboli. Normal caliber main pulmonary artery. Aorta: Normal in caliber. Lungs: There are minimal dependent hypoventilatory changes bilaterally. The lungs are otherwise essentially clear, within the limits of mild respiratory motion artifact. There is no consolidation or mass. Pleural spaces: No pleural effusion or pneumothorax. Heart: Heart size is within normal limits. No coronary artery calcifications are seen. There are no findings to suggest right heart strain. There is no pericardial effusion. Lymph nodes: No pathologically enlarged mediastinal, hilar, or axillary lymph nodes. Bones/joints: No suspicious osseous lesions. Chronic ununited fracture of the left 1st rib. Soft tissues: Bilateral gynecomastia is again noted, not significantly changed. Other findings: 2.4 cm indeterminate soft tissue attenuation cortical lesion in the medial upper pole of the left kidney. This has already been characterized by MRI (04/26/2025, not available for direct comparison at the time of this study). IMPRESSION: No acute abnormality in the chest. No evidence of pulmonary emboli. Dictated and Authenticated by: Alesha Levine MD. Orderin Fco Lockhart MD
[2025-05-18 08:38] LABS: Troponin I < 3 ng/L (<54)
== END 2025-05-18 09:29 | disposition home or self-care (01) ==
PROVIDERS: Student in an Organized Health Care Education/Training Program; Emergency Provider General Practice; PCP Physician Assistant
DX: R00.2 Palpitations (principal); N18.2 Chronic kidney disease, stage 2 (mild); E78.5 Hyperlipidemia, unspecified; E89.2 Postprocedural hypoparathyroidism; Z79.01 Long term (current) use of anticoagulants; Z86.711 Personal history of pulmonary embolism
CPT/HCPCS: 71275; 80053; 93005; 96365; 96375; 99285; 84484; 85025; 85610; 85730; 93010; J0131; J2405; J3490

== ENCOUNTER 2025-05-21 07:47 | Emergency (ER) | payer OTHER, SELFPAY ==
--- NOTE | 2025-05-21 07:45 | DI.RAD_ITS ---
Exam(s) XR CHEST 2V PA LATERAL EXAM: XR CHEST 2V PA LATERAL CLINICAL HISTORY: fever, cough. TECHNIQUE: 2D digital imaging was performed. COMPARISON: CR,XR XR CHEST 2V PA LATERAL from 05/16/2025 FINDINGS: 2 views: Heart size is normal. The mediastinum is not widened. Lungs are clear. No infiltrates nor pleural effusions. IMPRESSION: No acute pulmonary findings. DATA REPOSITORY: RADIATION DOSE DELIVERED:
[2025-05-21 07:49] VITALS: BP 132/70; PULSE 125; RESP 20; TEMP 36.7; O2SAT 96
[2025-05-21 07:53] VITALS: BP 132/70; PULSE 125; RESP 20; TEMP 36.7; O2SAT 96
[2025-05-21] MEDS: Normal Saline 1,000 ML 1000 ML IV (08:13)
[2025-05-21] MEDS: ACETAMINOPHEN 1,000 MG/100 ML BAG 400 MG IVPB (08:14)
[2025-05-21 08:15] LABS: Abs Immature Grans 0.02 10^3/uL (0.0-0.06); HCT 31.1 % (40.0-50.0); HGB 9.7 g/dL (13.5-17.5); Immature Grans % 0.3 %; MCH 24.8 pg (27.0-33.0); MCHC 31.2 % (32.0-36.0); MCV 80 fL (80-95); MPV 10.3 fL (8.0-11.0); Platelet Count 365 10^3/uL (130-400); RBC 3.91 10^6/uL (4.36-5.78); RDW 17.0 % (11.8-14.1); RDW-SD 49.1 fL; WBC 6.64 10^3/uL (4.4-10.8)
[2025-05-21 08:34] LABS: Magnesium 1.6 mg/dL (1.6-2.6)
[2025-05-21 08:36] LABS: ALT 26 U/L (10-49); AST 24 U/L (<34); Albumin 4.1 g/dL (3.2-5.0); Alkaline Phosphatase 125 U/L (46-116); Anion Gap 7.3 mmol/L (3-11); BUN 14 mg/dL (9-23); Bilirubin, Total 0.20 mg/dL (0.2-1.2); CO2 32.7 mmol/L (20.0-31.0); Calcium 9.2 mg/dL (8.3-10.6); Chloride 100 mmol/L (98-107); Glucose 118 mg/dL (74-106); Potassium 3.8 mmol/L (3.5-5.1); Sodium 140 mmol/L (136-145); Total Protein 7.9 g/dL (5.7-8.2)
--- NOTE | 2025-05-21 08:37 | W.ED.GENAD ---
Discharge Plan Disposition Patient Disposition: Home Discharge Details Clinical Impression: Acute viral syndrome, Rhinorrhea, Cough Primary Care Provider: Sanjana Pritchett ED Provider: Jamir Matson Home Meds and New Rx's Prescriptions: No Action gabapentin 300 mg capsule 300 mg PO BID Qty: 180 3RF omeprazole 40 mg capsule,delayed release(DR/EC) 40 mg PO DAILY Qty: 90 3RF lorazepam 1 mg tablet 1 mg PO DAILY PRN (Reason: anxiety) Qty: 10 0RF Rx Instructions: Use when considering ER visit cyclobenzaprine 10 mg tablet 10 mg PO TID PRN (Reason: muscle spasm) Qty: 30 3RF Eliquis 5 mg tablet 5 mg PO BID Qty: 60 6RF methadone 10 mg/5 mL solution 100 mg PO QAM calcitriol 0.5 mcg capsule 1 mcg PO .COMPLEX Qty: 270 3RF Rx Instructions: 1 mcg orally t2 tabs qam and 1 tab QHS; folic acid 1 mg tablet 1 mg PO DAILY Qty: 30 6RF calcium carbonate [Tums] 200 mg calcium (500 mg) tablet,chewable 2,000 mg PO BID polyethylene glycol 3350 17 gram powder in packet 17 g PO BID PRN magnesium gluconate 27 mg magnesium (500 mg) tablet 500 mg PO BID Rx Instructions: takes 500mg QAM and 1000mg QHS diclofenac sodium 1 % gel 2 g topical QID Qty: 50 0RF Rx Instructions: apply to single elbow, wrist or hand; for hand includes palm/fingers/back of hand famotidine 20 mg tablet 20 mg PO BID Qty: 30 0RF sucralfate 1 gram tablet 1 g PO QACHS Qty: 90 0RF ondansetron 4 mg tablet,disintegrating 4 mg PO Q8H PRNQty: 20 0RF clonazepam 1 mg tablet 1 mg PO BID Qty: 10 0RF prochlorperazine maleate [Compazine] 10 mg tablet 10 mg PO Q6H PRNQty: 10 0RF Discharge Instructions Instructions: Cough, runny nose, and the common cold Additional Instructions: Please follow-up with your primary care provider regarding your visit to the emergency department today. Be sure to discuss results of all test performed here today to include radiology, and laboratory testing as well as results for any pending cultures. Should your symptoms worsen, or if you develop new concerning symptoms, please return immediately emergency department for further evaluation. Stand Alone Forms: Portal Information HPI General Date/Time Provider Initiated Documentation: 05/21/25 07:49. HPI Narrative: MDM/Narrative: 29-year-old male presents for fever x 4 days. Vital signs notable for tachycardia however patient is well-known to the emergency department and is typically tachycardic upon evaluation. Physical exam otherwise shows no increased work of breathing, and no adventitious lung sounds. I took care of the patient approximately 3 days ago for complaints of hemoptysis and right upper extremity pain at that time he had a negative CTA of the chest as well as ultrasound of the right upper extremity. I have extremely low suspicion for worsening clot burden on this anticoagulated patient with recent CTA imaging, despite his tachycardia. As previously stated this patient is very well-known to the emergency department and is noted to have elevated heart rate. I will not obtain a D-dimer or any advanced imaging of the chest at this time as his symptoms have not worsened since the last time I saw him to suggest a new blood clot. In terms of reported fever x 4 days, will obtain chest x-ray, COVID/flu/RSV, screening as well as basic blood work including CBC and CM, and a urinalysis. He endorses persistent rhinorrhea, making me believe that this is a viral process. ED course: Labs showed no leukocytosis no significant metabolic derangements. RSV/COVID/flu is negative. Chest x-ray shows no acute infiltrates. Patient will be stable for discharge to follow-up primary care. Disposition: Home HPI: 29-year-old male with past medical history including PE/DVT, persistent sinus tachycardia, who is very well-known to the emergency department, presents for evaluation of fever and cough productive of sputum. Patient states that he developed a fever 4 days ago and has been persistent daily and notes that is not responsive to Tylenol. Also notes rhinorrhea with associated cough productive of green sputum. He also states that his breathing seems worse, notes that he is typically able to walk at 3.5 mph on a treadmill at the gym, in the past with this has only been able to go up to 2.8 mph. He denies any other concerning symptoms such as vomiting, hemoptysis, diarrhea, headache, abdominal pain, back pain or any other new or concerning symptoms. ROS: Negative besides as mentioned above Exam: Gen: A&O NAD HEENT: NCAT, EOMI, not icteric. External ears normal. No rhinorrhea. Moist mucous membranes. Neck: Supple, full range of motion, no observable masses, No meningeal sign. Lungs: No Respiratory distress. No adventitious lung sounds bilaterally CV: Tachycardia, no edema. Abdomen: Soft, nondistended, No rebound tenderness. MSK: No joint swelling, no redness. Skin: No rashes, petechiae, lesions. Normal color per patient. Neuro: Normal Gait, Grossly intact. Psych: Appropriate for situation. Labs: Laboratory Tests Range/Units 05/21/25 05/21/25 05/21/25 08:04 08:05 08:53 WBC (4.4-10.8) 10^3/uL 6.64 RBC (4.36-5.78) 10^6/uL 3.91 L Hgb (13.5-17.5) g/dL 9.7 L Hct (40.0-50.0) % 31.1 L MCV (80-95) fL 80 MCH (27.0-33.0) pg 24.8 L MCHC (32.0-36.0) % 31.2 L RDW (11.8-14.1) % 17.0 H Plt Count (130-400) 10^3/uL 365 MPV (8.0-11.0) fL 10.3 Immature Gran % % 0.3 Neutrophils % % 53.4 Lymphocytes % % 33.1 Monocytes % % 9.5 Eosinophils % % 3.2 Basophils % % 0.5 Nucleated RBC % (0.0-0.3) % 0.0 Absolute Neutrophils (1.2-6.7) 10^3/uL 3.55 Absolute Lymphocytes (1.2-3.4) 10^3/uL 2.20 Absolute Monocytes (0.1-0.8) 10^3/uL 0.63 Absolute Eosinophils (0.0-0.7) 10^3/uL 0.21 Absolute Basophils (0.0-0.2) 10^3/uL 0.03 VBG Lactate (<or=2.0) mmol/L 1.7 Sodium (136-145) mmol/L 140 Potassium (3.5-5.1) mmol/L 3.8 Chloride (98-107) mmol/L 100 Carbon Dioxide (20.0-31.0) mmol/L 32.7 H Anion Gap (3-11) mmol/L 7.3 BUN (9-23) mg/dL 14 Creatinine (0.73-1.18) mg/dL 1.54 H Est GFR (CKD-EPI 2020) (mL/min/1.73m2) 52.74 Glucose (74-106) mg/dL 118 H Calcium (8.3-10.6) mg/dL 9.2 Magnesium (1.6-2.6) mg/dL 1.6 Total Bilirubin (0.2-1.2) mg/dL 0.20 AST (<34) U/L 24 ALT (10-49) U/L 26 Alkaline Phosphatase (46-116) U/L 125 H Total Protein (5.7-8.2) g/dL 7.9 Albumin (3.2-5.0) g/dL 4.1 Urine Color (Yellow) Yellow Urine Clarity (Clear) Sl Cloudy Urine pH (5-8) 7.0 Ur Specific [place] (1.005-1.025) 1.020 Urine Protein (Neg-Trace) mg/dL Negative Urine Ketones (Negative) mg/dL Negative Urine Blood (Negative) Negative Urine Nitrite (Negative) Negative Urine Bilirubin (Negative) Negative Urine Urobilinogen (Up to 0.2) mg/dL 0.2 Ur Leukocyte Esterase (Negative) Negative Urine Glucose (Negative) mg/dL Negative COVID-19 Source Nasopharynx SARS-CoV-2 (PCR) (Negative) Negative Influenza Type A (PCR) (Negative) Negative Influenza Type B (PCR) (Negative) Negative RSV (PCR) (Negative) Negative Radiology: PROCEDURE INFORMATION: Exam: XR Chest Exam date and time: 05/21/2025 8:18 AM Age: 29 years old Clinical indication: Fever TECHNIQUE: Imaging protocol: Radiologic exam of the chest. Views: 2 views. COMPARISON: CT CHEST PE CTA 05/18/2025 7:15 AM FINDINGS: Lungs: Unremarkable. No consolidation. Pleural spaces: Unremarkable. No pleural effusion. No pneumothorax. Heart/Mediastinum: Unremarkable. No cardiomegaly. Bones/joints: Unremarkable. IMPRESSION: No acute findings. Thank you for allowing us to participate in the care of your patient. Dictated and Authenticated by: Kameron Granger MD Related Data Home Medications ?Medication ?Instructions ?Recorded ?Confirmed calcium carbonate (Tums) 2,000 mg PO BID 02/02/23 05/21/25 methadone 10 mg/5 mL oral solution 100 mg PO QAM 06/12/23 05/21/25 gabapentin 300 mg capsule 300 mg PO BID #180 caps 06/01/24 05/21/25 calcitriol 0.5 mcg capsule 1 mcg (2 x 0.5 mcg) PO .COMPLEX 06/29/24 05/21/25 #270 caps omeprazole 40 mg capsule,delayed 40 mg PO DAILY #90 caps 07/27/24 05/21/25 release polyethylene glycol 3350 17 gram 17 g PO BID PRN 10/15/24 05/21/25 oral powder packet lorazepam 1 mg tablet 1 mg PO DAILY PRN anxiety #10 tabs 10/19/24 05/21/25 cyclobenzaprine 10 mg tablet 10 mg PO TID PRN muscle spasm #30 11/16/24 05/21/25 tabs magnesium gluconate 27 mg 500 mg PO BID 01/30/25 05/21/25 magnesium (500 mg) tablet diclofenac sodium 1 % topical gel 2 g topical QID #50 grams 02/03/25 05/21/25 apixaban 5 mg tablet (Eliquis) 5 mg PO BID #60 tabs 03/08/25 05/21/25 famotidine 20 mg tablet 20 mg PO BID #30 tabs 03/15/25 05/21/25 ondansetron 4 mg disintegrating 4 mg PO Q8H PRN #20 tabs 03/15/25 05/21/25 tablet sucralfate 1 gram tablet 1 g PO QACHS #90 tabs 03/15/25 05/21/25 prochlorperazine maleate 10 mg 10 mg PO Q6H PRN #10 tabs 03/16/25 05/21/25 tablet (Compazine) folic acid 1 mg tablet 1 mg PO DAILY #30 tabs 03/17/25 05/21/25 clonazepam 1 mg tablet 1 mg PO BID #10 tabs 04/03/25 05/21/25 Previous Rx's ?Medication ?Instructions ?Recorded gabapentin 300 mg capsule 300 mg PO BID #180 caps 06/01/24 calcitriol 0.5 mcg capsule 1 mcg (2 x 0.5 mcg) PO .COMPLEX 06/29/24 #270 caps omeprazole 40 mg capsule,delayed 40 mg PO DAILY #90 caps 07/27/24 release lorazepam 1 mg tablet 1 mg PO DAILY PRN anxiety #10 tabs 10/19/24 cyclobenzaprine 10 mg tablet 10 mg PO TID PRN muscle spasm #30 11/16/24 tabs diclofenac sodium 1 % topical gel 2 g topical QID #50 grams 02/03/25 apixaban 5 mg tablet (Eliquis) 5 mg PO BID #60 tabs 03/08/25 famotidine 20 mg tablet 20 mg PO BID #30 tabs 03/15/25 ondansetron 4 mg disintegrating 4 mg PO Q8H PRN #20 tabs 03/15/25 tablet sucralfate 1 gram tablet 1 g PO QACHS #90 tabs 03/15/25 prochlorperazine maleate 10 mg 10 mg PO Q6H PRN #10 tabs 03/16/25 tablet (Compazine) folic acid 1 mg tablet 1 mg PO DAILY #30 tabs 03/17/25 clonazepam 1 mg tablet 1 mg PO BID #10 tabs 04/03/25 Allergies Allergy/AdvReac Type Severity Reaction Status Date / Time Penicillins Allergy Skin Rash Verified 05/21/25 07:52 marijuana (cannabis) AdvReac Severe Paranoia Verified 05/21/25 07:52 amoxicillin AdvReac Intermediate Nausea Verified 05/21/25 07:52 codeine AdvReac Intermediate pass out Verified 05/21/25 07:52 dextromethorphan (From AdvReac Intermediate got Verified 05/21/25 07:52 NyQuil) really hot and sweaty doxylamine (From NyQuil) AdvReac Intermediate got Verified 05/21/25 07:52 really hot and sweaty pseudoephedrine (From NyQuil) AdvReac Intermediate got Verified 05/21/25 07:52 really hot and sweaty General Stated Complaint: GenMedical ADRIANA: 3 Course Vital Signs Vital signs: Vital Signs Temperature 36.7 C 05/21/25 07:49 Pulse 125 H 05/21/25 07:49 Respiratory Rate 20 05/21/25 07:49 Blood Pressure 132/70 05/21/25 07:49 Pulse Oximetry 96 05/21/25 07:49 Temperature 36.7 C 05/21/25 07:53 Temperature Source Oral 05/21/25 07:53 Pulse 125 H 05/21/25 07:53 Respiratory Rate 20 05/21/25 07:53 Blood Pressure 132/70 05/21/25 07:53 Pulse Oximetry 96 05/21/25 07:53 Lab/Test Results Lab/Test Results: Laboratory Tests Range/Units 05/21/25 08:04 WBC (4.4-10.8) 10^3/uL 6.64 RBC (4.36-5.78) 10^6/uL 3.91 L Hgb (13.5-17.5) g/dL 9.7 L Hct (40.0-50.0) % 31.1 L MCV (80-95) fL 80 MCH (27.0-33.0) pg 24.8 L MCHC (32.0-36.0) % 31.2 L RDW (11.8-14.1) % 17.0 H Plt Count (130-400) 10^3/uL 365 MPV (8.0-11.0) fL 10.3 Immature Gran % % 0.3 Neutrophils % % 53.4 Lymphocytes % % 33.1 Monocytes % % 9.5 Eosinophils % % 3.2 Basophils % % 0.5 Nucleated RBC % (0.0-0.3) % 0.0 Absolute Neutrophils (1.2-6.7) 10^3/uL 3.55 Absolute Lymphocytes (1.2-3.4) 10^3/uL 2.20 Absolute Monocytes (0.1-0.8) 10^3/uL 0.63 Absolute Eosinophils (0.0-0.7) 10^3/uL 0.21 Absolute Basophils (0.0-0.2) 10^3/uL 0.03 VBG Lactate (<or=2.0) mmol/L 1.7 Sodium (136-145) mmol/L 140 Potassium (3.5-5.1) mmol/L 3.8 Chloride (98-107) mmol/L 100 Carbon Dioxide (20.0-31.0) mmol/L 32.7 H Anion Gap (3-11) mmol/L 7.3 BUN (9-23) mg/dL 14 Creatinine (0.73-1.18) mg/dL 1.54 H Est GFR (CKD-EPI 2020) (mL/min/1.73m2) 52.74 Glucose (74-106) mg/dL 118 H Calcium (8.3-10.6) mg/dL 9.2 Magnesium (1.6-2.6) mg/dL 1.6 Total Bilirubin (0.2-1.2) mg/dL 0.20 AST (<34) U/L 24 ALT (10-49) U/L 26 Alkaline Phosphatase (46-116) U/L 125 H Total Protein (5.7-8.2) g/dL 7.9 Albumin (3.2-5.0) g/dL 4.1 Medical Decision Making Quality:SDOH Health Related Social Needs: Health related social needs lonely/isolated Health related social needs details patient here frequently due to anxiety. PFSH All Active Problems (Updated 05/21/25 @ 08:47 by Jamir Matson MD) Cough (Acute) Rhinorrhea (Acute) Acute viral syndrome (Acute) Hemoptysis (Acute) Chest pain (Acute) Chest pain, unspecified (Acute) Palpitations (Acute) Light-headed feeling (Acute) Irritation of radial nerve (Acute) Chest pain (Acute) History of fever (Acute) Chest pain (Acute) Arm pain, right (Acute) Varicose vein of leg (Acute) Pain in right leg (Acute) Breath shortness (Acute) Hyperhomocysteinemia (Acute) Pulmonary infiltrates (Acute) Snoring (Acute) Pleural effusion (Acute) Rt groin pain (Acute) Rash (Acute) Shortness of breath (Acute) Edema, peripheral (Acute) Anxiety (Chronic) Chest discomfort (Acute) Pulmonary embolism and infarction (Acute) Left pulmonary infiltrate on CXR (Acute) Bilateral pulmonary embolism (Acute) Tenderness of neck (Acute) Right elbow pain (Acute) Acute leg pain (Acute) Bronchitis (Acute) Well adult health check (Acute) Obstructive sleep apnea (Chronic) Metabolic dysfunction-associated fatty liver disease (MAFLD) (Acute) Fatty liver (Acute) IBS (irritable bowel syndrome) (Chronic) Obesity (Chronic) Migraine with aura (Acute) Testicle lump (Acute) Pes anserine bursitis (Acute) Left-sided Flower's palsy (Acute) Opiate dependence, continuous (Acute) 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 Possible 2' Methadone, Clnzpm (?). Surg eval (+)/No further action. History of electrolyte imbalance (Acute) Neck pain on left side (Acute) with shoulder, upper back pain.. torticollis, radiating into left hip/leg Pulmonary nodule 1 cm or greater in diameter (Chronic) Therapeutic opioid induced constipation (Acute) Sphincter of Oddi dysfunction (Chronic) Abnormal CT scan, kidney (Acute) Intrahepatic bile duct dilation (Acute) Common bile duct dilatation (Chronic) Has been dilated for quite some time, now more-so. Normal LFTs. Known gallstones. 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 Hypocalcemia Anxiety Depression Hyperlipidemia Family history of multiple endocrine neoplasia, type 1 PTSD (post-traumatic stress disorder) Per pt. states no triggers at this time. Surgical History History of laparoscopic cholecystectomy (~11/2023) H/O parathyroidectomy Family History Mother Anxiety Asthma Depression Sister Anxiety Depression Father Cancer lung & stomach Depression Diabetes Hypertension MEN 1 (multiple endocrine neoplasia) Social History Smoking/Tobacco Use Status: Never Smoking risk assessment performed?: Yes Alcohol Intake: never Drug use: Current Sobriety Substance use type: former substance user, crack/cocaine, heroin and painkillers Details: stopped using substances for the past 4 years Adopted: No Caregiver/Support person: No Foster care: No Household members: none Housing: apartment Number of Children: 0 Communication Needs: None Education Level: high school Do you need help understanding health information?: Never current occupation: [employer] Pets and animals: Yes (Ally) Pets and animals: dog(s) Sexually active: No Do you think of yourself as: straight/heterosexual Current gender identity: male What is your relationship status?: How often do you talk on the phone with friends or family?: twice per week How often do you get together with friends or relatives?: never Do you belong to any clubs or organized social groups?: no Panel score (0-1 are the most socially isolated patients): 0 What type of physical activity do you participate in: walking Duration: 15-30 minutes/day Frequency: 5-6 times per week Maryam/Caodaism: Sabianist Special maryam needs: No Seatbelt use: always Helmet use: Yes Helmet use: always Drive intox or ride w/intox city bus driver: No Do you feel safe at home: Yes Do you feel safe in your relationship?: Yes
--- NOTE | 2025-05-21 08:44 | DI.VRAD_ITS ---
PROCEDURE INFORMATION: Exam: XR Chest Exam date and time: 05/21/2025 8:18 AM Age: 29 years old Clinical indication: Fever TECHNIQUE: Imaging protocol: Radiologic exam of the chest. Views: 2 views. COMPARISON: CT CHEST PE CTA 05/18/2025 7:15 AM FINDINGS: Lungs: Unremarkable. No consolidation. Pleural spaces: Unremarkable. No pleural effusion. No pneumothorax. Heart/Mediastinum: Unremarkable. No cardiomegaly. Bones/joints: Unremarkable. IMPRESSION: No acute findings. Dictated and Authenticated by: Kameron Granger MD. Orderin Dano Bowie MD
[2025-05-21 08:59] LABS: COVID-19 PCR Negative (Negative); RSV PCR Negative (Negative)
[2025-05-21 09:03] VITALS: TEMP 37.1
[2025-05-21 09:34] LABS: Glucose Negative (Negative)
[2025-05-21 09:58] VITALS: BP 138/80; PULSE 86; RESP 18; TEMP 36.6; O2SAT 98
[2025-05-21 10:01] VITALS: RESP 20
== END 2025-05-21 09:51 | disposition home or self-care (01) ==
PROVIDERS: Emergency Provider General Practice; PCP Physician Assistant
DX: J34.89 Other specified disorders of nose and nasal sinuses; R05.9 Cough, unspecified; Z60.8 Other problems related to social environment; B34.9 Viral infection, unspecified
CPT/HCPCS: 36415; 80053; 87637; 96361; 96365; 99284; 71046; 81003; 83605; 83735; 85025; 99283; J0131

== ENCOUNTER 2025-05-23 07:33 | Emergency (ER) | payer OTHER, SELFPAY ==
[2025-05-23 07:38] VITALS: BP 132/96; PULSE 114; RESP 16; TEMP 36.9; O2SAT 96
--- NOTE | 2025-05-23 07:45 | DI.US_ITS ---
Exam(s) US UPPER EXTREMITY VENOUS RT EXAM: US UPPER EXTREMITY VENOUS RT CLINICAL HISTORY: Right arm pain. TECHNIQUE: Ultrasound examination of the right upper extremity venous system(s) is performed using grayscale, color-flow, and spectral Doppler analysis. COMPARISON: No exams were available for comparison FINDINGS: The right internal jugular, axillary, subclavian, cephalic, basilic, brachial, radial, and ulnar veins are patent without evidence of thrombosis. IMPRESSION: No DVT. DATA REPOSITORY:
--- NOTE | 2025-05-23 07:49 | W.ED.GENAD ---
Discharge Plan Disposition Patient Disposition: Home Discharge Details Clinical Impression: Pain in right arm, Tenderness of chest wall Primary Care Provider: Sanjana Pritchett ED Provider: Pedro Wolfe Home Meds and New Rx's Prescriptions: Continued gabapentin 300 mg capsule 300 mg PO BID Qty: 180 3RF omeprazole 40 mg capsule,delayed release(DR/EC) 40 mg PO DAILY Qty: 90 3RF lorazepam 1 mg tablet 1 mg PO DAILY PRN (Reason: anxiety) Qty: 10 0RF Rx Instructions: Use when considering ER visit cyclobenzaprine 10 mg tablet 10 mg PO TID PRN (Reason: muscle spasm) Qty: 30 3RF Eliquis 5 mg tablet 5 mg PO BID Qty: 60 6RF methadone 10 mg/5 mL solution 100 mg PO QAM calcitriol 0.5 mcg capsule 1 mcg PO .COMPLEX Qty: 270 3RF Rx Instructions: 1 mcg orally t2 tabs qam and 1 tab QHS; folic acid 1 mg tablet 1 mg PO DAILY Qty: 30 6RF calcium carbonate [Tums] 200 mg calcium (500 mg) tablet,chewable 2,000 mg PO BID polyethylene glycol 3350 17 gram powder in packet 17 g PO BID PRN magnesium gluconate 27 mg magnesium (500 mg) tablet 500 mg PO BID Rx Instructions: takes 500mg QAM and 1000mg QHS diclofenac sodium 1 % gel 2 g topical QID Qty: 50 0RF Rx Instructions: apply to single elbow, wrist or hand; for hand includes palm/fingers/back of hand famotidine 20 mg tablet 20 mg PO BID Qty: 30 0RF sucralfate 1 gram tablet 1 g PO QACHS Qty: 90 0RF ondansetron 4 mg tablet,disintegrating 4 mg PO Q8H PRNQty: 20 0RF clonazepam 1 mg tablet 1 mg PO BID Qty: 10 0RF prochlorperazine maleate [Compazine] 10 mg tablet 10 mg PO Q6H PRNQty: 10 0RF Discharge Instructions Additional Instructions: You are seen in the emergency department for your arm pain. Your ultrasound showed no sign of any blood clot. As we discussed if the area in your chest becomes more red swollen or tender please return to the emergency department. Otherwise please follow-up as needed with your primary care provider. Stand Alone Forms: Portal Information Discharge Data Discharge Date/Time-TO BE ENTERED AT DEPARTURE: 05/23/25 11:04 HPI General Date/Time Provider Initiated Documentation: 05/23/25 07:35. HPI Narrative: MDM This is an overall well-appearing tachycardic but normothermic normotensive 29-year-old male with multiple recent right upper 70 IVs and right upper extremity tenderness concerning for the possibility of upper extremity DVT for which patient will undergo formal radiology ultrasound. Patient also has area of erythema to right chest with mild associated tenderness. On bedside ultrasound there is no signs of any abscess so we will defer I&D. This area is not particularly warm and my suspicion is lower for cellulitis so we will observe off antibiotics. No vesicles to suggest zoster. No pain out of proportion to suggest necrotizing soft tissue infection. No bull's-eye rash to suggest Lyme disease will defer doxycycline. Area is not particularly pruritic until my suspicion is lower for contact dermatitis so we will defer steroids. Patient is not hypoxic nor complaining of chest pain so my suspicion is lower for breakthrough PE so I did not feel that patient required a repeat CT scan of the chest. Patient has had dry cough and likely has a viral URI. He has had multiple negative respiratory viral swabs in the past several days so we will defer repeat testing at this time. Will have patient apply ice to his chest for 20+20 minutes off. 4 PM Return to the patient care. Patient had no signs of DVT on upper extremity duplex study. We discussed that he should return if he developed any worsening pain. Tachycardia resolved in the ED. HPI This is a patient with a history of genetic clotting disorder presenting with right arm pain, chest pain, elevated blood pressure, and dry cough. The patient reports experiencing pain in the right arm for the past 4 days, which is accompanied by redness. Additionally, the patient describes a painful, red, and hot area on the chest. The patient is requesting an ultrasound of both areas to rule out clotting due to a history of clots in the lungs and right calf. The patient has been compliant with anticoagulant therapy. The patient is not experiencing any chest pain or trouble breathing. The patient also reports a temperature and tachycardia, which has been present for the past 4 days and is not related to anxiety. The patient's blood pressure has been elevated, averaging around 140/90, compared to usual readings of 119/70. The patient describes a sensation of heat in the face, head, and ears. The patient has a mild dry cough but does not produce any sputum. Exam General: Well-appearing in no acute distress speaking in complete sentences. Head: Normocephalic, atraumatic. Eye: Extraocular eye movements intact. No conjunctival injection. No scleral icterus. Ear, nose, mouth, throat: Grossly normal inspection. Normal voice, handling secretions normally. Neck: Trachea midline. Cardiovascular: Well-perfused distal extremities. Chest wall: On the right side of the patient's chest she has medial to his right breast there is a small well-circumscribed erythematous area that measures approximately 3 cm in diameter. No fluctuance. No vesicles. No significant warmth. Respiratory: Nonlabored respiration. Gastrointestinal: Nondistended abdomen. Musculoskeletal: Right upper extremity: Mildly tender at proximal medial aspect of right upper extremity just distal to the axilla. No fluctuance. No erythema. No palpable cords. Right hand warm well-perfused intact duplex right radial pulse. Full range of motion in the right upper extremity across shoulder, elbow, wrist. Patient can fully pronate and supinate. Skin: Normal for age and race, grossly normal temperature and turgor. No acute rash. Neurologic: Alert and appropriate, no apparent acute deficits. Psychiatric: Mood and manner are appropriate. Grooming and personal hygiene are appropriate. Related Data Home Medications ?Medication ?Instructions ?Recorded ?Confirmed calcium carbonate (Tums) 2,000 mg PO BID 02/02/23 05/23/25 methadone 10 mg/5 mL oral solution 100 mg PO QAM 06/12/23 05/23/25 gabapentin 300 mg capsule 300 mg PO BID #180 caps 06/01/24 05/23/25 calcitriol 0.5 mcg capsule 1 mcg (2 x 0.5 mcg) PO .COMPLEX 06/29/24 05/23/25 #270 caps omeprazole 40 mg capsule,delayed 40 mg PO DAILY #90 caps 07/27/24 05/23/25 release polyethylene glycol 3350 17 gram 17 g PO BID PRN 10/15/24 05/23/25 oral powder packet lorazepam 1 mg tablet 1 mg PO DAILY PRN anxiety #10 tabs 10/19/24 05/23/25 cyclobenzaprine 10 mg tablet 10 mg PO TID PRN muscle spasm #30 11/16/24 05/23/25 tabs magnesium gluconate 27 mg 500 mg PO BID 01/30/25 05/23/25 magnesium (500 mg) tablet diclofenac sodium 1 % topical gel 2 g topical QID #50 grams 02/03/25 05/23/25 apixaban 5 mg tablet (Eliquis) 5 mg PO BID #60 tabs 03/08/25 05/23/25 famotidine 20 mg tablet 20 mg PO BID #30 tabs 03/15/25 05/23/25 ondansetron 4 mg disintegrating 4 mg PO Q8H PRN #20 tabs 03/15/25 05/23/25 tablet sucralfate 1 gram tablet 1 g PO QACHS #90 tabs 03/15/25 05/23/25 prochlorperazine maleate 10 mg 10 mg PO Q6H PRN #10 tabs 03/16/25 05/23/25 tablet (Compazine) folic acid 1 mg tablet 1 mg PO DAILY #30 tabs 03/17/25 05/23/25 clonazepam 1 mg tablet 1 mg PO BID #10 tabs 04/03/25 05/23/25 Previous Rx's ?Medication ?Instructions ?Recorded gabapentin 300 mg capsule 300 mg PO BID #180 caps 06/01/24 calcitriol 0.5 mcg capsule 1 mcg (2 x 0.5 mcg) PO .COMPLEX 06/29/24 #270 caps omeprazole 40 mg capsule,delayed 40 mg PO DAILY #90 caps 07/27/24 release lorazepam 1 mg tablet 1 mg PO DAILY PRN anxiety #10 tabs 10/19/24 cyclobenzaprine 10 mg tablet 10 mg PO TID PRN muscle spasm #30 11/16/24 tabs diclofenac sodium 1 % topical gel 2 g topical QID #50 grams 02/03/25 apixaban 5 mg tablet (Eliquis) 5 mg PO BID #60 tabs 03/08/25 famotidine 20 mg tablet 20 mg PO BID #30 tabs 03/15/25 ondansetron 4 mg disintegrating 4 mg PO Q8H PRN #20 tabs 03/15/25 tablet sucralfate 1 gram tablet 1 g PO QACHS #90 tabs 03/15/25 prochlorperazine maleate 10 mg 10 mg PO Q6H PRN #10 tabs 03/16/25 tablet (Compazine) folic acid 1 mg tablet 1 mg PO DAILY #30 tabs 03/17/25 clonazepam 1 mg tablet 1 mg PO BID #10 tabs 04/03/25 Allergies Allergy/AdvReac Type Severity Reaction Status Date / Time Penicillins Allergy Skin Rash Verified 05/23/25 07:41 marijuana (cannabis) AdvReac Severe Paranoia Verified 05/23/25 07:41 amoxicillin AdvReac Intermediate Nausea Verified 05/23/25 07:41 codeine AdvReac Intermediate pass out Verified 05/23/25 07:41 dextromethorphan (From AdvReac Intermediate got Verified 05/23/25 07:41 NyQuil) really hot and sweaty doxylamine (From NyQuil) AdvReac Intermediate got Verified 05/23/25 07:41 really hot and sweaty pseudoephedrine (From NyQuil) AdvReac Intermediate got Verified 05/23/25 07:41 really hot and sweaty General Stated Complaint: [facility] ADRIANA: 3 Course Vital Signs Vital signs: Vital Signs Temperature 36.9 C 05/23/25 07:38 Pulse 114 H 05/23/25 07:38 Respiratory Rate 16 05/23/25 07:38 Blood Pressure 132/96 H 05/23/25 07:38 Pulse Oximetry 96 05/23/25 07:38 Temperature 36.9 C 05/23/25 07:38 Temperature Source Oral 05/23/25 07:38 Pulse 114 H 05/23/25 07:38 Respiratory Rate 16 05/23/25 07:38 Blood Pressure 132/96 H 05/23/25 07:38 Blood Pressure Position Sitting 05/23/25 07:38 Pulse Oximetry 96 05/23/25 07:38 Oxygen Delivery Method Room Air 05/23/25 07:38 Oxygen Flow Rate 0 05/23/25 07:38 Procedure Abscess Drainage Provider that performed the procedure: Pedro Wolfe Medical Decision Making Quality:SDOH Health Related Social Needs: Health related social needs lonely/isolated Health related social needs details patient here frequently due to anxiety. PFSH All Active Problems (Updated 05/23/25 @ 08:35 by Pedro Wolfe MD) Tenderness of chest wall (Acute) Pain in right arm (Acute) Cough (Acute) Rhinorrhea (Acute) Acute viral syndrome (Acute) Hemoptysis (Acute) Chest pain (Acute) Chest pain, unspecified (Acute) Palpitations (Acute) Light-headed feeling (Acute) Irritation of radial nerve (Acute) Chest pain (Acute) History of fever (Acute) Chest pain (Acute) Arm pain, right (Acute) Varicose vein of leg (Acute) Pain in right leg (Acute) Hyperhomocysteinemia (Acute) Pulmonary infiltrates (Acute) Snoring (Acute) Pleural effusion (Acute) Rt groin pain (Acute) Rash (Acute) Shortness of breath (Acute) Edema, peripheral (Acute) Anxiety (Chronic) Chest discomfort (Acute) Pulmonary embolism and infarction (Acute) Left pulmonary infiltrate on CXR (Acute) Bilateral pulmonary embolism (Acute) Tenderness of neck (Acute) Right elbow pain (Acute) Acute leg pain (Acute) Bronchitis (Acute) Well adult health check (Acute) Obstructive sleep apnea (Chronic) Metabolic dysfunction-associated fatty liver disease (MAFLD) (Acute) Fatty liver (Acute) IBS (irritable bowel syndrome) (Chronic) Obesity (Chronic) Migraine with aura (Acute) Testicle lump (Acute) Pes anserine bursitis (Acute) Left-sided Flower's palsy (Acute) Opiate dependence, continuous (Acute) 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 Possible 2' Methadone, Clnzpm (?). Surg eval (+)/No further action. History of electrolyte imbalance (Acute) Neck pain on left side (Acute) with shoulder, upper back pain.. torticollis, radiating into left hip/leg Pulmonary nodule 1 cm or greater in diameter (Chronic) Therapeutic opioid induced constipation (Acute) Sphincter of Oddi dysfunction (Chronic) Abnormal CT scan, kidney (Acute) Intrahepatic bile duct dilation (Acute) Common bile duct dilatation (Chronic) Has been dilated for quite some time, now more-so. Normal LFTs. Known gallstones. 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 Hypocalcemia Anxiety Depression Hyperlipidemia Family history of multiple endocrine neoplasia, type 1 PTSD (post-traumatic stress disorder) Per pt. states no triggers at this time. Surgical History History of laparoscopic cholecystectomy (~11/2023) H/O parathyroidectomy Family History Mother Anxiety Asthma Depression Sister Anxiety Depression Father Cancer lung & stomach Depression Diabetes Hypertension MEN 1 (multiple endocrine neoplasia) Social History Smoking/Tobacco Use Status: Never Smoking risk assessment performed?: Yes Alcohol Intake: never Drug use: Current Sobriety Substance use type: former substance user, crack/cocaine, heroin and painkillers Details: stopped using substances for the past 4 years Adopted: No Caregiver/Support person: No Foster care: No Household members: none Housing: apartment Number of Children: 0 Communication Needs: None Education Level: high school Do you need help understanding health information?: Never current occupation: [employer] Pets and animals: Yes (Ally) Pets and animals: dog(s) Sexually active: No Do you think of yourself as: straight/heterosexual Current gender identity: male What is your relationship status?: How often do you talk on the phone with friends or family?: twice per week How often do you get together with friends or relatives?: never Do you belong to any clubs or organized social groups?: no Panel score (0-1 are the most socially isolated patients): 0 What type of physical activity do you participate in: walking Duration: 15-30 minutes/day Frequency: 5-6 times per week Maryam/[employer]ist: Shinto Special maryam needs: No Seatbelt use: always Helmet use: Yes Helmet use: always Drive intox or ride w/intox flatbed driver: No Do you feel safe at home: Yes Do you feel safe in your relationship?: Yes POCUS Exam (ED) Limited Soft Tissue Exam DATE OF EXAM: 05/23/25 TIME OF EXAM: 08:32 PROVIDER THAT PERFORMED THE STUDY: Pedro Wolfe LOCATION OF EXAM: Chest wall/right side REASON FOR EXAM: Redness Exam Complete DIFFERENTIAL DIAGNOSES: No anechoic fluid collections. No significant cobblestoning.
[2025-05-23 08:15] VITALS: PULSE 100; O2SAT 95
[2025-05-23 09:22] VITALS: BP 119/75; PULSE 84; RESP 16; TEMP 36.7; O2SAT 96
[2025-05-23 10:58] VITALS: BP 130/80; PULSE 88; O2SAT 97
--- NOTE | 2025-05-24 08:36 | NUR.NOTE ---
Accessed Pt chart to print out the Provider's Note and most recent Chest CT to fax to [facility] Room as the Pt is presenting there.
== END 2025-05-23 11:04 | disposition home or self-care (01) ==
PROVIDERS: Emergency Provider Emergency Medicine; PCP Physician Assistant
DX: M79.601 Pain in right arm (principal); R07.89 Other chest pain; Z60.8 Other problems related to social environment
CPT/HCPCS: 99283; 99284; 76604; 93971

== ENCOUNTER 2025-05-24 21:55 | Emergency (ER) | payer OTHER, SELFPAY ==
[2025-05-24 21:57] VITALS: BP 136/92; PULSE 91; RESP 18; TEMP 37; O2SAT 98
--- NOTE | 2025-05-24 21:57 | W.ED.GENAD ---
Discharge Plan Disposition Patient Disposition: Home Condition: Good Discharge Details Clinical Impression: Wrist pain, left Primary Care Provider: Sanjana Pritchett ED Provider: Santiago Ibarra [place] Meds and New Rx's Prescriptions: Continued gabapentin 300 mg capsule 300 mg PO BID Qty: 180 3RF omeprazole 40 mg capsule,delayed release(DR/EC) 40 mg PO DAILY Qty: 90 3RF lorazepam 1 mg tablet 1 mg PO DAILY PRN (Reason: anxiety) Qty: 10 0RF Rx Instructions: Use when considering ER visit cyclobenzaprine 10 mg tablet 10 mg PO TID PRN (Reason: muscle spasm) Qty: 30 3RF Eliquis 5 mg tablet 5 mg PO BID Qty: 60 6RF methadone 10 mg/5 mL solution 100 mg PO QAM calcitriol 0.5 mcg capsule 1 mcg PO .COMPLEX Qty: 270 3RF Rx Instructions: 1 mcg orally t2 tabs qam and 1 tab QHS; folic acid 1 mg tablet 1 mg PO DAILY Qty: 30 6RF calcium carbonate [Tums] 200 mg calcium (500 mg) tablet,chewable 2,000 mg PO BID polyethylene glycol 3350 17 gram powder in packet 17 g PO BID PRN magnesium gluconate 27 mg magnesium (500 mg) tablet 500 mg PO BID Rx Instructions: takes 500mg QAM and 1000mg QHS diclofenac sodium 1 % gel 2 g topical QID Qty: 50 0RF Rx Instructions: apply to single elbow, wrist or hand; for hand includes palm/fingers/back of hand famotidine 20 mg tablet 20 mg PO BID Qty: 30 0RF sucralfate 1 gram tablet 1 g PO QACHS Qty: 90 0RF ondansetron 4 mg tablet,disintegrating 4 mg PO Q8H PRNQty: 20 0RF clonazepam 1 mg tablet 1 mg PO BID Qty: 10 0RF prochlorperazine maleate [Compazine] 10 mg tablet 10 mg PO Q6H PRNQty: 10 0RF Discharge Instructions Additional Instructions: You were seen in the ED for localized pain in your left wrist. Exam and vitals are reassuring. Would ice the area on/off and continue acetaminophen as needed. Follow up with PCP next week if not improving. Return to ED for increased pain with associated redness/warmth/fever; edema of the arm, other concerns. Stand Alone Forms: Portal Information HPI General Mode of arrival: ambulatory. Date/Time Provider Initiated Documentation: 05/24/25 21:57. Limitations to Documentation: no limitations. Information obtained by: patient and RN notes reviewed. HPI Narrative: Patient presents to ED with localized pain in the left wrist. Patient denies any known injury. He is on anticoagulation for DVT/PE. He noticed a small dark spot that is painful on his left wrist. No redness, warmth, bruising. No pain with ROM of thumb or wrist. Related Data Home Medications ?Medication ?Instructions ?Recorded ?Confirmed calcium carbonate (Tums) 2,000 mg PO BID 02/02/23 05/24/25 methadone 10 mg/5 mL oral solution 100 mg PO QAM 06/12/23 05/24/25 gabapentin 300 mg capsule 300 mg PO BID #180 caps 06/01/24 05/24/25 calcitriol 0.5 mcg capsule 1 mcg (2 x 0.5 mcg) PO .COMPLEX 06/29/24 05/24/25 #270 caps omeprazole 40 mg capsule,delayed 40 mg PO DAILY #90 caps 07/27/24 05/24/25 release polyethylene glycol 3350 17 gram 17 g PO BID PRN 10/15/24 05/24/25 oral powder packet lorazepam 1 mg tablet 1 mg PO DAILY PRN anxiety #10 tabs 10/19/24 05/24/25 cyclobenzaprine 10 mg tablet 10 mg PO TID PRN muscle spasm #30 11/16/24 05/24/25 tabs magnesium gluconate 27 mg 500 mg PO BID 01/30/25 05/24/25 magnesium (500 mg) tablet diclofenac sodium 1 % topical gel 2 g topical QID #50 grams 02/03/25 05/24/25 apixaban 5 mg tablet (Eliquis) 5 mg PO BID #60 tabs 03/08/25 05/24/25 famotidine 20 mg tablet 20 mg PO BID #30 tabs 03/15/25 05/24/25 ondansetron 4 mg disintegrating 4 mg PO Q8H PRN #20 tabs 03/15/25 05/24/25 tablet sucralfate 1 gram tablet 1 g PO QACHS #90 tabs 03/15/25 05/24/25 prochlorperazine maleate 10 mg 10 mg PO Q6H PRN #10 tabs 03/16/25 05/24/25 tablet (Compazine) folic acid 1 mg tablet 1 mg PO DAILY #30 tabs 03/17/25 05/24/25 clonazepam 1 mg tablet 1 mg PO BID #10 tabs 04/03/25 05/24/25 Previous Rx's ?Medication ?Instructions ?Recorded gabapentin 300 mg capsule 300 mg PO BID #180 caps 06/01/24 calcitriol 0.5 mcg capsule 1 mcg (2 x 0.5 mcg) PO .COMPLEX 06/29/24 #270 caps omeprazole 40 mg capsule,delayed 40 mg PO DAILY #90 caps 07/27/24 release lorazepam 1 mg tablet 1 mg PO DAILY PRN anxiety #10 tabs 10/19/24 cyclobenzaprine 10 mg tablet 10 mg PO TID PRN muscle spasm #30 11/16/24 tabs diclofenac sodium 1 % topical gel 2 g topical QID #50 grams 02/03/25 apixaban 5 mg tablet (Eliquis) 5 mg PO BID #60 tabs 03/08/25 famotidine 20 mg tablet 20 mg PO BID #30 tabs 03/15/25 ondansetron 4 mg disintegrating 4 mg PO Q8H PRN #20 tabs 03/15/25 tablet sucralfate 1 gram tablet 1 g PO QACHS #90 tabs 03/15/25 prochlorperazine maleate 10 mg 10 mg PO Q6H PRN #10 tabs 03/16/25 tablet (Compazine) folic acid 1 mg tablet 1 mg PO DAILY #30 tabs 03/17/25 clonazepam 1 mg tablet 1 mg PO BID #10 tabs 04/03/25 Allergies Allergy/AdvReac Type Severity Reaction Status Date / Time Penicillins Allergy Skin Rash Verified 05/24/25 22:05 marijuana (cannabis) AdvReac Severe Paranoia Verified 05/24/25 22:05 amoxicillin AdvReac Intermediate Nausea Verified 05/24/25 22:05 codeine AdvReac Intermediate pass out Verified 05/24/25 22:05 dextromethorphan (From AdvReac Intermediate got Verified 05/24/25 22:05 NyQuil) really hot and sweaty doxylamine (From NyQuil) AdvReac Intermediate got Verified 05/24/25 22:05 really hot and sweaty pseudoephedrine (From NyQuil) AdvReac Intermediate got Verified 05/24/25 22:05 really hot and sweaty General ADRIANA: 3 Exam Narrative Exam Narrative: Const: WDWN male in NAD. VS per triage. HEENT: NC/AT. Normal facial exam. Neck: Supple. Trachea midline. Lungs: Normal respiratory effort. Cor: RRR. Good radial pulses. Neuro: A+O x 3. Normal speech, mentation, gait. Cranial nerves II - XII grossly intact. No gross motor or sensory deficit. Ext: No C/C/E. Left volar wrist with pinpoint dark spot that is not swollen or red. It is superficial in nature. Reports tenderness but has normal ROM in wrist, thumb, hand. Radial pulse normal. Medical Decision Making Patient presenting with pain and dark spot involving the left volar wrist, radial side. Potentially a very small, superficial bruise. No signs of infection, significant bleeding and no concern for clot. Patient reassured. Discharged home with return precautions. Quality:SDOH Health Related Social Needs: Health related social needs lonely/isolated Health related social needs details patient here frequently due to anxiety. PFSH All Active Problems Wrist pain, left (Acute) Tenderness of chest wall (Acute) Pain in right arm (Acute) Cough (Acute) Rhinorrhea (Acute) Acute viral syndrome (Acute) Hemoptysis (Acute) Chest pain (Acute) Chest pain, unspecified (Acute) Palpitations (Acute) Light-headed feeling (Acute) Irritation of radial nerve (Acute) Chest pain (Acute) History of fever (Acute) Chest pain (Acute) Arm pain, right (Acute) Varicose vein of leg (Acute) Pain in right leg (Acute) Hyperhomocysteinemia (Acute) Pulmonary infiltrates (Acute) Snoring (Acute) Pleural effusion (Acute) Rt groin pain (Acute) Rash (Acute) Shortness of breath (Acute) Edema, peripheral (Acute) Anxiety (Chronic) Chest discomfort (Acute) Pulmonary embolism and infarction (Acute) Left pulmonary infiltrate on CXR (Acute) Bilateral pulmonary embolism (Acute) Tenderness of neck (Acute) Right elbow pain (Acute) Acute leg pain (Acute) Bronchitis (Acute) Well adult health check (Acute) Obstructive sleep apnea (Chronic) Metabolic dysfunction-associated fatty liver disease (MAFLD) (Acute) Fatty liver (Acute) IBS (irritable bowel syndrome) (Chronic) Obesity (Chronic) Migraine with aura (Acute) Testicle lump (Acute) Pes anserine bursitis (Acute) Left-sided Flower's palsy (Acute) Opiate dependence, continuous (Acute) 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 Possible 2' Methadone, Clnzpm (?). Surg eval (+)/No further action. History of electrolyte imbalance (Acute) Neck pain on left side (Acute) with shoulder, upper back pain.. torticollis, radiating into left hip/leg Pulmonary nodule 1 cm or greater in diameter (Chronic) Therapeutic opioid induced constipation (Acute) Sphincter of Oddi dysfunction (Chronic) Abnormal CT scan, kidney (Acute) Intrahepatic bile duct dilation (Acute) Common bile duct dilatation (Chronic) Has been dilated for quite some time, now more-so. Normal LFTs. Known gallstones. 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 Hypocalcemia Anxiety Depression Hyperlipidemia Family history of multiple endocrine neoplasia, type 1 PTSD (post-traumatic stress disorder) Per pt. states no triggers at this time. Surgical History History of laparoscopic cholecystectomy (~11/2023) H/O parathyroidectomy Family History Mother Anxiety Asthma Depression Sister Anxiety Depression Father Cancer lung & stomach Depression Diabetes Hypertension MEN 1 (multiple endocrine neoplasia) Social History Smoking/Tobacco Use Status: Never Smoking risk assessment performed?: Yes Alcohol Intake: never Drug use: Current Sobriety Substance use type: former substance user, crack/cocaine, heroin and painkillers Details: stopped using substances for the past 4 years Adopted: No Caregiver/Support person: No Foster care: No Household members: none Housing: apartment Number of Children: 0 Communication Needs: None Education Level: high school Do you need help understanding health information?: Never current occupation: [employer] Pets and animals: Yes (Ally) Pets and animals: dog(s) Sexually active: No Do you think of yourself as: straight/heterosexual Current gender identity: male What is your relationship status?: How often do you talk on the phone with friends or family?: twice per week How often do you get together with friends or relatives?: never Do you belong to any clubs or organized social groups?: no Panel score (0-1 are the most socially isolated patients): 0 What type of physical activity do you participate in: walking Duration: 15-30 minutes/day Frequency: 5-6 times per week Maryam/Gnosticist: Mu-Ism Special maryam needs: No Seatbelt use: always Helmet use: Yes Helmet use: always Drive intox or ride w/intox stock driver: No Do you feel safe at home: Yes Do you feel safe in your relationship?: Yes
== END 2025-05-24 22:23 | disposition home or self-care (01) ==
PROVIDERS: Emergency Provider Emergency Medicine; PCP Physician Assistant
DX: M25.532 Pain in left wrist (principal); Z60.8 Other problems related to social environment
CPT/HCPCS: 99282; 99281

== ENCOUNTER 2025-05-25 16:05 | Emergency (ER) | payer OTHER, SELFPAY ==
[2025-05-25] VITALS (10 sets, daily range): BP systolic 125–127; BP diastolic 74–83; PULSE 78–95; RESP 20; TEMP 36.8; O2SAT 96–100
--- NOTE | 2025-05-25 17:20 | W.ED.GENAD ---
Discharge Plan Disposition Patient Disposition: Home Condition: Stable Discharge Details Clinical Impression: Adverse effect of local antifungal, anti-infective and anti-inflammatory drugs, initial encounter Primary Care Provider: Sanjana Pritchett ED Provider: Antoinette Templeton Home Meds and New Rx's Prescriptions: New clindamycin HCl [Cleocin HCl] 300 mg capsule 300 mg PO BID 7 Days Qty: 14 0RF Rx Instructions: Take 1 capsule by mouth twice daily for the next 7 days No Action gabapentin 300 mg capsule 300 mg PO BID Qty: 180 3RF omeprazole 40 mg capsule,delayed release(DR/EC) 40 mg PO DAILY Qty: 90 3RF lorazepam 1 mg tablet 1 mg PO DAILY PRN (Reason: anxiety) Qty: 10 0RF Rx Instructions: Use when considering ER visit cyclobenzaprine 10 mg tablet 10 mg PO TID PRN (Reason: muscle spasm) Qty: 30 3RF Eliquis 5 mg tablet 5 mg PO BID Qty: 60 6RF methadone 10 mg/5 mL solution 100 mg PO QAM calcitriol 0.5 mcg capsule 1 mcg PO .COMPLEX Qty: 270 3RF Rx Instructions: 1 mcg orally t2 tabs qam and 1 tab QHS; folic acid 1 mg tablet 1 mg PO DAILY Qty: 30 6RF calcium carbonate [Tums] 200 mg calcium (500 mg) tablet,chewable 2,000 mg PO BID polyethylene glycol 3350 17 gram powder in packet 17 g PO BID PRN magnesium gluconate 27 mg magnesium (500 mg) tablet 500 mg PO BID Rx Instructions: takes 500mg QAM and 1000mg QHS diclofenac sodium 1 % gel 2 g topical QID Qty: 50 0RF Rx Instructions: apply to single elbow, wrist or hand; for hand includes palm/fingers/back of hand famotidine 20 mg tablet 20 mg PO BID Qty: 30 0RF sucralfate 1 gram tablet 1 g PO QACHS Qty: 90 0RF ondansetron 4 mg tablet,disintegrating 4 mg PO Q8H PRNQty: 20 0RF clonazepam 1 mg tablet 1 mg PO BID Qty: 10 0RF prochlorperazine maleate [Compazine] 10 mg tablet 10 mg PO Q6H PRNQty: 10 0RF Discharge Instructions Instructions: Adverse Drug Reactions, Adult ED Additional Instructions: This time it does appear that you may have had a adverse drug reaction to doxycycline. Please do not take this medication again. New prescription for clindamycin was sent to the pharmacy on file. You may want to wait 24 hours before beginning this. You were given a dose of prednisone and Pepcid which also is a histamine cathie. You may continue to take Pepcid once a day for the next few days. Follow up with primary care provider in 3-5 days. Return to ED sooner if any worsening or concerns. Stand Alone Forms: Portal Information Referrals: Sanjana Pritchett [Primary Care Provider, Medicine] - 3 days Referral Note: ER follow up call for an appointment Clinical Impression: Adverse effect of local antifungal, anti-infective and anti-inflammatory drugs, initial encounter HPI General Mode of arrival: ambulatory. Date/Time Provider Initiated Documentation: 05/25/25 16:11. Limitations to Documentation: no limitations. Information obtained by: patient, RN notes reviewed and old records reviewed. HPI Narrative: 29-year-old male presents to the ER for possible adverse reaction to the doxycycline which he took around 3 PM this afternoon. He was prescribed this for a possible cellulitis to his right anterior chest. He took 1 doxycycline and stated that he felt like his lips were swelling, his vision was blurry and he felt flushed and itchy to his chest. His symptoms are slowly subsiding. He has no wheezing noted on exam. He is in full sentences. He is ANO x 4. He does have significant past medical history of multiple endocrine neoplasia type I, parathyroidectomy, anxiety depression hyperlipidemia PTSD obesity and chronic kidney disease, he also was recently diagnosed with a PE and is taking apixaban. He states he did not take any Benadryl or anything at home since he is allergic to Benadryl. Related Data Home Medications ?Medication ?Instructions ?Recorded ?Confirmed calcium carbonate (Tums) 2,000 mg PO BID 02/02/23 05/25/25 methadone 10 mg/5 mL oral solution 100 mg PO QAM 06/12/23 05/25/25 gabapentin 300 mg capsule 300 mg PO BID #180 caps 06/01/24 05/25/25 calcitriol 0.5 mcg capsule 1 mcg (2 x 0.5 mcg) PO .COMPLEX 06/29/24 05/25/25 #270 caps omeprazole 40 mg capsule,delayed 40 mg PO DAILY #90 caps 07/27/24 05/25/25 release polyethylene glycol 3350 17 gram 17 g PO BID PRN 10/15/24 05/25/25 oral powder packet lorazepam 1 mg tablet 1 mg PO DAILY PRN anxiety #10 tabs 10/19/24 05/25/25 cyclobenzaprine 10 mg tablet 10 mg PO TID PRN muscle spasm #30 11/16/24 05/25/25 tabs magnesium gluconate 27 mg 500 mg PO BID 01/30/25 05/25/25 magnesium (500 mg) tablet diclofenac sodium 1 % topical gel 2 g topical QID #50 grams 02/03/25 05/25/25 apixaban 5 mg tablet (Eliquis) 5 mg PO BID #60 tabs 03/08/25 05/25/25 famotidine 20 mg tablet 20 mg PO BID #30 tabs 03/15/25 05/25/25 ondansetron 4 mg disintegrating 4 mg PO Q8H PRN #20 tabs 03/15/25 05/25/25 tablet sucralfate 1 gram tablet 1 g PO QACHS #90 tabs 03/15/25 05/25/25 prochlorperazine maleate 10 mg 10 mg PO Q6H PRN #10 tabs 03/16/25 05/25/25 tablet (Compazine) folic acid 1 mg tablet 1 mg PO DAILY #30 tabs 03/17/25 05/25/25 clonazepam 1 mg tablet 1 mg PO BID #10 tabs 04/03/25 05/25/25 clindamycin HCl 300 mg capsule 300 mg PO BID Cellulitis 7 days 05/25/25 (Cleocin HCl) #14 caps Previous Rx's ?Medication ?Instructions ?Recorded gabapentin 300 mg capsule 300 mg PO BID #180 caps 06/01/24 calcitriol 0.5 mcg capsule 1 mcg (2 x 0.5 mcg) PO .COMPLEX 06/29/24 #270 caps omeprazole 40 mg capsule,delayed 40 mg PO DAILY #90 caps 07/27/24 release lorazepam 1 mg tablet 1 mg PO DAILY PRN anxiety #10 tabs 10/19/24 cyclobenzaprine 10 mg tablet 10 mg PO TID PRN muscle spasm #30 11/16/24 tabs diclofenac sodium 1 % topical gel 2 g topical QID #50 grams 02/03/25 apixaban 5 mg tablet (Eliquis) 5 mg PO BID #60 tabs 03/08/25 famotidine 20 mg tablet 20 mg PO BID #30 tabs 03/15/25 ondansetron 4 mg disintegrating 4 mg PO Q8H PRN #20 tabs 03/15/25 tablet sucralfate 1 gram tablet 1 g PO QACHS #90 tabs 03/15/25 prochlorperazine maleate 10 mg 10 mg PO Q6H PRN #10 tabs 03/16/25 tablet (Compazine) folic acid 1 mg tablet 1 mg PO DAILY #30 tabs 03/17/25 clonazepam 1 mg tablet 1 mg PO BID #10 tabs 04/03/25 clindamycin HCl 300 mg capsule 300 mg PO BID Cellulitis 7 days 05/25/25 (Cleocin HCl) #14 caps Allergies Allergy/AdvReac Type Severity Reaction Status Date / Time Penicillins Allergy Skin Rash Verified 05/25/25 16:15 marijuana (cannabis) AdvReac Severe Paranoia Verified 05/25/25 16:15 amoxicillin AdvReac Intermediate Nausea Verified 05/25/25 16:15 codeine AdvReac Intermediate pass out Verified 05/25/25 16:15 dextromethorphan (From AdvReac Intermediate got Verified 05/25/25 16:15 NyQuil) really hot and sweaty doxylamine (From NyQuil) AdvReac Intermediate got Verified 05/25/25 16:15 really hot and sweaty pseudoephedrine (From NyQuil) AdvReac Intermediate got Verified 05/25/25 16:15 really hot and sweaty General Stated Complaint: Allergic ADRIANA: 3 Exam Narrative Exam Narrative: Constitutional: Alert and oriented x3. Appears stated age. Obese body habitus. Head: Normocephalic, no trauma. Eyes: Pupils PERRL, Red reflex noted, EOM's intact. Eyelids symmetrical without lesions, discharge, or swelling. ENT: Bilateral TM's WNL, External ear normal to inspection, no mastoid TTP, swelling, or erythema, Nasal turbinates WNL, no nasal discharge. Poor dentition, Posterior pharynx WNL, no exudate. Chest: RRR, Normal S1, S2, distal pulses intact. Resp: Lungs clear to auscultation bilaterally, no wheezes, rales, or rhonchi. Abdomen: Soft, non-distended, Normoactive bowel sounds all 4 quads. Musculoskeletal: Normal gait, Moves all 4 extremities without difficulty. Skin: No suspicious rashes or lesions. Capillary refill less than 2 sec. Neurologic: Cranial nerves II-XII intact. Alert and oriented x 3. Motor: No deficits noted. Sensory: Intact bilaterally all 4 extremities. Hematologic/Lymphatic: No ecchymosis, no lymphadenopathy. Course Vital Signs Vital signs: Vital Signs Temperature 36.8 C 05/25/25 16:12 Pulse 95 H 05/25/25 16:12 Respiratory Rate 20 05/25/25 16:12 Blood Pressure 127/83 05/25/25 16:12 Pulse Oximetry 96 05/25/25 16:12 Temperature 36.8 C 05/25/25 16:12 Pulse 95 H 05/25/25 16:12 Respiratory Rate 20 05/25/25 16:12 Blood Pressure 127/83 05/25/25 16:12 Blood Pressure Position Sitting 05/25/25 16:12 Pulse Oximetry 96 05/25/25 16:12 Oxygen Delivery Method Room Air 05/25/25 16:12 Oxygen Flow Rate 0 05/25/25 16:12 Medical Decision Making 29-year-old male presents to the ER for possible adverse reaction to the doxycycline which he took around 3 PM this afternoon. He was prescribed this for a possible cellulitis to his right anterior chest. He took 1 doxycycline and stated that he felt like his lips were swelling, his vision was blurry and he felt flushed and itchy to his chest. His symptoms are slowly subsiding. He has no wheezing noted on exam. He is in full sentences. He is ANO x 4. He does have significant past medical history of multiple endocrine neoplasia type I, parathyroidectomy, anxiety depression hyperlipidemia PTSD obesity and chronic kidney disease, he also was recently diagnosed with a PE and is taking apixaban. He states he did not take any Benadryl or anything at home since he is allergic to Benadryl. I did order 60 mg of prednisone p.o. and Pepcid. Will continue to observe. 175: Patient reevaluation he is resting comfortably in bed has no complaints, vital signs are within normal limits. Will consider changing antibiotic to clindamycin. Differential diagnosis includes anxiety attack. Patient discharged from department remains in hemodynamically stable condition. This text was generated using [employer] system, please disregard any oddities of phrase or misspellings. Medical Records Medical records reviewed: Yes I reviewed the patient's medical records. Quality:SDOH Health Related Social Needs: Health related social needs lonely/isolated Health related social needs details patient here frequently due to anxiety. PFSH All Active Problems (Updated 05/25/25 @ 18:00 by Antoinette Templeton NP) Adverse effect of local antifungal, anti-infective and anti-inflammatory drugs, initial encounter (Acute) Wrist pain, left (Acute) Tenderness of chest wall (Acute) Pain in right arm (Acute) Cough (Acute) Rhinorrhea (Acute) Acute viral syndrome (Acute) Hemoptysis (Acute) Chest pain (Acute) Chest pain, unspecified (Acute) Palpitations (Acute) Light-headed feeling (Acute) Irritation of radial nerve (Acute) Chest pain (Acute) History of fever (Acute) Chest pain (Acute) Arm pain, right (Acute) Varicose vein of leg (Acute) Pain in right leg (Acute) Hyperhomocysteinemia (Acute) Pulmonary infiltrates (Acute) Snoring (Acute) Pleural effusion (Acute) Rt groin pain (Acute) Rash (Acute) Shortness of breath (Acute) Edema, peripheral (Acute) Anxiety (Chronic) Chest discomfort (Acute) Pulmonary embolism and infarction (Acute) Left pulmonary infiltrate on CXR (Acute) Bilateral pulmonary embolism (Acute) Tenderness of neck (Acute) Right elbow pain (Acute) Acute leg pain (Acute) Bronchitis (Acute) Well adult health check (Acute) Obstructive sleep apnea (Chronic) Metabolic dysfunction-associated fatty liver disease (MAFLD) (Acute) Fatty liver (Acute) IBS (irritable bowel syndrome) (Chronic) Obesity (Chronic) Migraine with aura (Acute) Testicle lump (Acute) Pes anserine bursitis (Acute) Left-sided Flower's palsy (Acute) Opiate dependence, continuous (Acute) 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 Possible 2' Methadone, Clnzpm (?). Surg eval (+)/No further action. History of electrolyte imbalance (Acute) Neck pain on left side (Acute) with shoulder, upper back pain.. torticollis, radiating into left hip/leg Pulmonary nodule 1 cm or greater in diameter (Chronic) Therapeutic opioid induced constipation (Acute) Sphincter of Oddi dysfunction (Chronic) Abnormal CT scan, kidney (Acute) Intrahepatic bile duct dilation (Acute) Common bile duct dilatation (Chronic) Has been dilated for quite some time, now more-so. Normal LFTs. Known gallstones. 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 Hypocalcemia Anxiety Depression Hyperlipidemia Family history of multiple endocrine neoplasia, type 1 PTSD (post-traumatic stress disorder) Per pt. states no triggers at this time. Surgical History History of laparoscopic cholecystectomy (~11/2023) H/O parathyroidectomy Family History Mother Anxiety Asthma Depression Sister Anxiety Depression Father Cancer lung & stomach Depression Diabetes Hypertension MEN 1 (multiple endocrine neoplasia) Social History Smoking/Tobacco Use Status: Never Smoking risk assessment performed?: Yes Alcohol Intake: never Drug use: Current Sobriety Substance use type: former substance user, crack/cocaine, heroin and painkillers Details: stopped using substances for the past 4 years Adopted: No Caregiver/Support person: No Foster care: No Household members: none Housing: apartment Number of Children: 0 Communication Needs: None Education Level: high school Do you need help understanding health information?: Never current occupation: [employer] Pets and animals: Yes (Ally) Pets and animals: dog(s) Sexually active: No Do you think of yourself as: straight/heterosexual Current gender identity: male What is your relationship status?: How often do you talk on the phone with friends or family?: twice per week How often do you get together with friends or relatives?: never Do you belong to any clubs or organized social groups?: no Panel score (0-1 are the most socially isolated patients): 0 What type of physical activity do you participate in: walking Duration: 15-30 minutes/day Frequency: 5-6 times per week Maryam/Amish: [employer]ian Special maryam needs: No Seatbelt use: always Helmet use: Yes Helmet use: always Drive intox or ride w/intox driver sales: No Do you feel safe at home: Yes Do you feel safe in your relationship?: Yes
[2025-05-25] MEDS: predniSONE 20 MG TAB 60 MG PO (17:26)
[2025-05-25] MEDS: Famotidine 20 MG TAB 40 MG PO (17:26)
== END 2025-05-25 18:03 | disposition home or self-care (01) ==
PROVIDERS: Emergency Provider Registered Nurse Emergency; PCP Physician Assistant
DX: T49.0X5A Adverse effect of local antifungal, anti-infective and anti-inflammatory drugs, initial encounter (principal); R06.02 Shortness of breath
CPT/HCPCS: 99283 ×2; J7512

== ENCOUNTER 2025-05-26 09:28 | Emergency (ER) | payer OTHER, SELFPAY ==
[2025-05-26] VITALS (65 sets, daily range): BP systolic 110–133; BP diastolic 66–79; PULSE 75–116; RESP 10–24; TEMP 36.4; O2SAT 87–100
--- NOTE | 2025-05-26 09:30 | RT.EKG_ITS ---
APPROVED REPORT Exam: Resting ECG Reason for Exam: chest tightness Patient Location: E HR:101 bpm ECG Measurements Heart Rate 101 AXIS OR 187 P 47 QRSd 100 QRS 22 QT 362 T 30 QTc 469 Conclusion Sinus tachycardia, rate 101 No interval abnormalities No STEMI No significant changes from priors
--- NOTE | 2025-05-26 09:43 | W.ED.GENAD ---
Discharge Plan Disposition Patient Disposition: Home Condition: Stable Discharge Details Clinical Impression: Shortness of breath Primary Care Provider: Sanjana Pritchett ED Provider: Richy Oakes Home Meds and New Rx's Prescriptions: Continued gabapentin 300 mg capsule 300 mg PO BID Qty: 180 3RF omeprazole 40 mg capsule,delayed release(DR/EC) 40 mg PO DAILY Qty: 90 3RF lorazepam 1 mg tablet 1 mg PO DAILY PRN (Reason: anxiety) Qty: 10 0RF Rx Instructions: Use when considering ER visit cyclobenzaprine 10 mg tablet 10 mg PO TID PRN (Reason: muscle spasm) Qty: 30 3RF Eliquis 5 mg tablet 5 mg PO BID Qty: 60 6RF methadone 10 mg/5 mL solution 100 mg PO QAM calcitriol 0.5 mcg capsule 1 mcg PO .COMPLEX Qty: 270 3RF Rx Instructions: 1 mcg orally t2 tabs qam and 1 tab QHS; folic acid 1 mg tablet 1 mg PO DAILY Qty: 30 6RF calcium carbonate [Tums] 200 mg calcium (500 mg) tablet,chewable 2,000 mg PO BID polyethylene glycol 3350 17 gram powder in packet 17 g PO BID PRN magnesium gluconate 27 mg magnesium (500 mg) tablet 500 mg PO BID Rx Instructions: takes 500mg QAM and 1000mg QHS diclofenac sodium 1 % gel 2 g topical QID Qty: 50 0RF Rx Instructions: apply to single elbow, wrist or hand; for hand includes palm/fingers/back of hand famotidine 20 mg tablet 20 mg PO BID Qty: 30 0RF sucralfate 1 gram tablet 1 g PO QACHS Qty: 90 0RF ondansetron 4 mg tablet,disintegrating 4 mg PO Q8H PRNQty: 20 0RF clonazepam 1 mg tablet 1 mg PO BID Qty: 10 0RF clindamycin HCl [Cleocin HCl] 300 mg capsule 300 mg PO BID 7 Days Qty: 14 0RF Rx Instructions: Take 1 capsule by mouth twice daily for the next 7 days prochlorperazine maleate [Compazine] 10 mg tablet 10 mg PO Q6H PRNQty: 10 0RF Discharge Instructions Instructions: Shortness of Breath, Adult ED Additional Instructions: You were seen in the emergency department for your shortness of breath, you endorse upper respiratory infection last week this may be the source of your elevated white blood cells. The blood test testing for blood clot D-dimer is negative. Your troponin test is negative indicating no heart strain or damage to the myocytes of the heart, your EKG is also normal, your x-ray shows no acute abnormality, you may have irritation in your lung and inflammation next to the area of-year-old PE which you are currently on anticoagulation for, please speak to your primary care provider should you desire to have nebulizer treatments at home they will need to prescribe you the nebulizer machine. Otherwise please return for any emergent concerns. Stand Alone Forms: Portal Information Referrals: Sanjana Pritchett [Primary Care Provider, Medicine] Discharge Data Discharge Date/Time-TO BE ENTERED AT DEPARTURE: 05/26/25 13:01 HPI General Date/Time Provider Initiated Documentation: 05/26/25 09:42. HPI Narrative: 29 year-old male presents to ED today by POV/ambulating with a chief complaint of shortness of breath, states he was at the gym and his O2 was dropping to the 80s on treadmill- and endorses that he's been coughing, and having some chest tightness with onset for the past 3 days. Quality described as hurts similar to his recent PE which he is still on anticoagulation for feels like it is just superior to the area where he had his PE in the left axillary region, no radiation to fever, abdominal pain, nausea or vomiting, syncope, endorses some dizziness. Severity is described as moderate to severe. Palliating factors include nothing specific attempted. Provoking factors include seems to be worse with exercise. Patient not anticoagulated. Related Data Home Medications ?Medication ?Instructions ?Recorded ?Confirmed calcium carbonate (Tums) 2,000 mg PO BID 02/02/23 05/26/25 methadone 10 mg/5 mL oral solution 100 mg PO QAM 06/12/23 05/26/25 gabapentin 300 mg capsule 300 mg PO BID #180 caps 06/01/24 05/26/25 calcitriol 0.5 mcg capsule 1 mcg (2 x 0.5 mcg) PO .COMPLEX 06/29/24 05/26/25 #270 caps omeprazole 40 mg capsule,delayed 40 mg PO DAILY #90 caps 07/27/24 05/26/25 release polyethylene glycol 3350 17 gram 17 g PO BID PRN 10/15/24 05/26/25 oral powder packet lorazepam 1 mg tablet 1 mg PO DAILY PRN anxiety #10 tabs 10/19/24 05/26/25 cyclobenzaprine 10 mg tablet 10 mg PO TID PRN muscle spasm #30 11/16/24 05/26/25 tabs magnesium gluconate 27 mg 500 mg PO BID 01/30/25 05/26/25 magnesium (500 mg) tablet diclofenac sodium 1 % topical gel 2 g topical QID #50 grams 02/03/25 05/26/25 apixaban 5 mg tablet (Eliquis) 5 mg PO BID #60 tabs 03/08/25 05/26/25 famotidine 20 mg tablet 20 mg PO BID #30 tabs 03/15/25 05/26/25 ondansetron 4 mg disintegrating 4 mg PO Q8H PRN #20 tabs 03/15/25 05/26/25 tablet sucralfate 1 gram tablet 1 g PO QACHS #90 tabs 03/15/25 05/26/25 prochlorperazine maleate 10 mg 10 mg PO Q6H PRN #10 tabs 03/16/25 05/26/25 tablet (Compazine) folic acid 1 mg tablet 1 mg PO DAILY #30 tabs 03/17/25 05/26/25 clonazepam 1 mg tablet 1 mg PO BID #10 tabs 04/03/25 05/26/25 clindamycin HCl 300 mg capsule 300 mg PO BID Cellulitis 7 days 05/25/25 05/26/25 (Cleocin HCl) #14 caps Previous Rx's ?Medication ?Instructions ?Recorded gabapentin 300 mg capsule 300 mg PO BID #180 caps 06/01/24 calcitriol 0.5 mcg capsule 1 mcg (2 x 0.5 mcg) PO .COMPLEX 06/29/24 #270 caps omeprazole 40 mg capsule,delayed 40 mg PO DAILY #90 caps 07/27/24 release lorazepam 1 mg tablet 1 mg PO DAILY PRN anxiety #10 tabs 10/19/24 cyclobenzaprine 10 mg tablet 10 mg PO TID PRN muscle spasm #30 11/16/24 tabs diclofenac sodium 1 % topical gel 2 g topical QID #50 grams 02/03/25 apixaban 5 mg tablet (Eliquis) 5 mg PO BID #60 tabs 03/08/25 famotidine 20 mg tablet 20 mg PO BID #30 tabs 03/15/25 ondansetron 4 mg disintegrating 4 mg PO Q8H PRN #20 tabs 03/15/25 tablet sucralfate 1 gram tablet 1 g PO QACHS #90 tabs 03/15/25 prochlorperazine maleate 10 mg 10 mg PO Q6H PRN #10 tabs 03/16/25 tablet (Compazine) folic acid 1 mg tablet 1 mg PO DAILY #30 tabs 03/17/25 clonazepam 1 mg tablet 1 mg PO BID #10 tabs 04/03/25 clindamycin HCl 300 mg capsule 300 mg PO BID Cellulitis 7 days 05/25/25 (Cleocin HCl) #14 caps Allergies Allergy/AdvReac Type Severity Reaction Status Date / Time Penicillins Allergy Skin Rash Verified 05/26/25 09:42 marijuana (cannabis) AdvReac Severe Paranoia Verified 05/26/25 09:42 amoxicillin AdvReac Intermediate Nausea Verified 05/26/25 09:42 codeine AdvReac Intermediate pass out Verified 05/26/25 09:42 dextromethorphan (From AdvReac Intermediate got Verified 05/26/25 09:42 NyQuil) really hot and sweaty doxylamine (From NyQuil) AdvReac Intermediate got Verified 05/26/25 09:42 really hot and sweaty pseudoephedrine (From NyQuil) AdvReac Intermediate got Verified 05/26/25 09:42 really hot and sweaty General Stated Complaint: RespSymp ADRIANA: 3 Review of Systems All systems reviewed & are unremarkable except as noted in HPI and below Exam Narrative Exam Narrative: GENERAL APPEARANCE: Well-nourished, non-toxic, awake and alert, atraumatic, mild acute distress. SKIN: Warm, pale, dry, intact, without rashes/lesions/ulcerations. HEAD: Normocephalic, atraumatic, normal hair distribution for gender/age. EYES: Normal conjunctiva, no exudates on lids/lashes. ENT: Nares patent, no circumoral cyanosis, no facial swelling NECK: Supple, trachea midline, painless cervical ROM. LUNGS/CHEST: Lungs CTA bilaterally-no rhonchi/rales/wheeze diffusely, no focally diminished or absent lung sounds, non-labored respirations, normal A/P diameter, symmetrical expansion, no chest wall deformity, tenderness to left axillary lower ribs without crepitus HEART (CV/PV): Regular rate and rhythm without murmur, no peripheral edema, no JVD. ABDOMEN: Soft, non-distended, no guarding, no tenderness. MSK: Normal ROM, no swelling/deformity to bilateral UEs or LEs, moving all extremities without weakness, no cyanosis, spine midline without tenderness, normal curvature. NEURO: Mental Status AAOx4 - alert to person, place, time, events No facial droop, no forehead involvement. Motor: No focal weakness - strength 5/5 in bilateral UEs and LEs, proximal and distal, symmetric. Sensory: sensation intact to light touch globally. Gait normal: patient ambulated without ataxia into ED room. PSYCH: euthymic, cooperative, pleasant, appropriate speech Course Vital Signs Vital signs: Vital Signs Temperature 36.4 C L 05/26/25 09:33 Pulse 92 H 05/26/25 09:33 Respiratory Rate 20 05/26/25 09:33 Blood Pressure 132/79 05/26/25 09:33 Pulse Oximetry 100 05/26/25 09:33 Temperature 36.4 C L 05/26/25 09:39 Temperature Source Oral 05/26/25 09:39 Pulse 92 H 05/26/25 09:39 Respiratory Rate 20 05/26/25 09:39 Blood Pressure 132/79 05/26/25 09:39 Blood Pressure Position Sitting 05/26/25 09:39 Pulse Oximetry 100 05/26/25 09:39 Oxygen Delivery Method Room Air 05/26/25 09:39 Oxygen Flow Rate 0 05/26/25 09:39 Medical Decision Making This dictation utilizes [id number] dictation software and may contain unedited grammatical errors. 29 year-old male presents to ED today by POV/ambulating with a chief complaint of shortness of breath, states he was at the gym and his O2 was dropping to the 80s on treadmill- and endorses that he's been coughing, and having some chest tightness with onset for the past 3 days. Quality described as hurts similar to his recent PE which he is still on anticoagulation for feels like it is just superior to the area where he had his PE in the left axillary region, no radiation to fever, abdominal pain, nausea or vomiting, syncope, endorses some dizziness. Severity is described as moderate to severe. Palliating factors include nothing specific attempted. Provoking factors include seems to be worse with exercise. Patients' medical history: CKD, primary hyperparathyroidism, high health anxiety, sphincter of Oddi dysfunction, pulmonary embolism. Family and social history: Noncontributory. Pertinent exam findings / vital signs include BP tenderness in the left axillary region, lungs CTA diffusely, benign abdomen, 100% oxygen on arrival- dipping to low 90s. Differential / pathologies of concern include PE, pneumonia, spontaneous pneumothorax, ACS, anxiety, lower respiratory infection, respiratory failure. Diagnostic studies of: - CBC, CMP, troponin, D-dimer, respiratory PCR swab, EKG, x-ray chest and left ribs. - CBC shows a nonspecific mild leukocytosis of 11.5 with baseline chronic anemia, no left shift - D-dimer negative patient is already on treatment for his recent PE - CMP is unremarkable with baseline creatinine - Magnesium within normal limits - Troponin negative with reliable onset - Respiratory PCR swab negative - X-ray chest shows no findings in the ribs or chest - EKG shows sinus rhythm at 101 bpm which is the patient's baseline, P waves following narrow complex QRS with normal axis, no T wave abnormalities or ST elevations or reciprocal depressions Interventions of: -DuoNeb given, patient confirms symptomatic improvement. ED Course/Assessment/Plan: 29-year-old male well-known to the emergency department presents with shortness of breath in the setting of a recent PE states pain is pleuritic in nature with pain at deep inspiration just above where his PE is in the left axillary region, his workup is reassuring and there is no pneumonia seen on his chest x-ray, troponin is negative with reliable onset, patient improved with DuoNeb, I counseled him that this could be musculoskeletal in nature and that it was unlikely any life-threatening condition was occurring, strict return criteria for any emergent concerns. Findings not consistent with PE, ACS, spontaneous pneumothorax, pneumonia, hypoxic respiratory failure. Disposition of shortness of breath. Patient verbalized understanding of the plan and return to ED criteria and engaged in shared decision making. Medical Records Medical records reviewed: Yes I reviewed the patient's medical records. Imaging Data Radiologic Study: Attestation: I personally reviewed and interpreted this imaging study as follows: Imaging: X-Ray Radiologist's impression: XR RIBS LT W PA LAT CHEST CLINICAL HISTORY: L axillary rib pain. COMPARISON: CR,XR XR CHEST 2V PA LATERAL from 05/21/2025 TECHNIQUE:: PA and lateral views of the chest and 3 views of the left ribs were performed. FINDINGS: LUNGS:Clear. No pleural abnormality seen. HEART: Normal size. MEDIASTINUM: Normal. BONES: No displaced rib fracture is seen. No bony destructive lesion is seen. IMPRESSION: 1. Unremarkable radiographic appearance of the left ribs. 2. No acute pulmonary findings. Lab Data Lab results reviewed: Yes I reviewed the patient's lab results. Labs: Laboratory Tests Range/Units 05/26/25 05/26/25 10:14 10:18 WBC (4.4-10.8) 10^3/uL 11.59 H RBC (4.36-5.78) 10^6/uL 3.74 L Hgb (13.5-17.5) g/dL 8.9 L Hct (40.0-50.0) % 29.1 L MCV (80-95) fL 78 L MCH (27.0-33.0) pg 23.8 L MCHC (32.0-36.0) % 30.6 L RDW (11.8-14.1) % 16.8 H Plt Count (130-400) 10^3/uL 397 MPV (8.0-11.0) fL 10.5 Immature Gran % % 0.4 Neutrophils % % 79.2 Lymphocytes % % 12.9 Monocytes % % 7.2 Eosinophils % % 0.2 Basophils % % 0.1 Nucleated RBC % (0.0-0.3) % 0.0 Absolute Neutrophils (1.2-6.7) 10^3/uL 9.18 H Absolute Lymphocytes (1.2-3.4) 10^3/uL 1.50 Absolute Monocytes (0.1-0.8) 10^3/uL 0.83 H Absolute Eosinophils (0.0-0.7) 10^3/uL 0.02 Absolute Basophils (0.0-0.2) 10^3/uL 0.01 D-Dimer (<500) ng/mlFEU 175 Sodium (136-145) mmol/L 140 Potassium (3.5-5.1) mmol/L 3.8 Chloride (98-107) mmol/L 102 Carbon Dioxide (20.0-31.0) mmol/L 29.1 Anion Gap (3-11) mmol/L 8.9 BUN (9-23) mg/dL 12 Creatinine (0.73-1.18) mg/dL 1.32 H Est GFR (CKD-EPI 2020) (mL/min/1.73m2) 63.01 Glucose (74-106) mg/dL 105 Calcium (8.3-10.6) mg/dL 8.7 Magnesium (1.6-2.6) mg/dL 1.6 Total Bilirubin (0.2-1.2) mg/dL 0.2 AST (<34) U/L 25 ALT (10-49) U/L 28 Alkaline Phosphatase (46-116) U/L 110 Troponin I (<54) ng/L < 3 Total Protein (5.7-8.2) g/dL 7.5 Albumin (3.2-5.0) g/dL 4.0 COVID-19 Source Nasopharynx SARS-CoV-2 (PCR) (Negative) Negative Influenza Type A (PCR) (Negative) Negative Influenza Type B (PCR) (Negative) Negative RSV (PCR) (Negative) Negative Quality:SDOH Health Related Social Needs: Health related social needs lonely/isolated Health related social needs details patient here frequently due to anxiety. PFSH All Active Problems (Updated 05/26/25 @ 12:47 by ANDREW Coleman) Shortness of breath (Acute) Adverse effect of local antifungal, anti-infective and anti-inflammatory drugs, initial encounter (Acute) Wrist pain, left (Acute) Tenderness of chest wall (Acute) Pain in right arm (Acute) Cough (Acute) Rhinorrhea (Acute) Acute viral syndrome (Acute) Hemoptysis (Acute) Chest pain (Acute) Chest pain, unspecified (Acute) Palpitations (Acute) Light-headed feeling (Acute) Irritation of radial nerve (Acute) Chest pain (Acute) History of fever (Acute) Chest pain (Acute) Arm pain, right (Acute) Hyperhomocysteinemia (Acute) Pulmonary infiltrates (Acute) Snoring (Acute) Pleural effusion (Acute) Rt groin pain (Acute) Rash (Acute) Shortness of breath (Acute) Edema, peripheral (Acute) Anxiety (Chronic) Chest discomfort (Acute) Pulmonary embolism and infarction (Acute) Left pulmonary infiltrate on CXR (Acute) Bilateral pulmonary embolism (Acute) Tenderness of neck (Acute) Right elbow pain (Acute) Acute leg pain (Acute) Bronchitis (Acute) Well adult health check (Acute) Obstructive sleep apnea (Chronic) Metabolic dysfunction-associated fatty liver disease (MAFLD) (Acute) Fatty liver (Acute) IBS (irritable bowel syndrome) (Chronic) Obesity (Chronic) Migraine with aura (Acute) Testicle lump (Acute) Pes anserine bursitis (Acute) Left-sided Flower's palsy (Acute) Opiate dependence, continuous (Acute) 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 Possible 2' Methadone, Clnzpm (?). Surg eval (+)/No further action. History of electrolyte imbalance (Acute) Neck pain on left side (Acute) with shoulder, upper back pain.. torticollis, radiating into left hip/leg Pulmonary nodule 1 cm or greater in diameter (Chronic) Therapeutic opioid induced constipation (Acute) Sphincter of Oddi dysfunction (Chronic) Abnormal CT scan, kidney (Acute) Intrahepatic bile duct dilation (Acute) Common bile duct dilatation (Chronic) Has been dilated for quite some time, now more-so. Normal LFTs. Known gallstones. 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 Hypocalcemia Anxiety Depression Hyperlipidemia Family history of multiple endocrine neoplasia, type 1 PTSD (post-traumatic stress disorder) Per pt. states no triggers at this time. Surgical History History of laparoscopic cholecystectomy (~11/2023) H/O parathyroidectomy Family History Mother Anxiety Asthma Depression Sister Anxiety Depression Father Cancer lung & stomach Depression Diabetes Hypertension MEN 1 (multiple endocrine neoplasia) Social History Smoking/Tobacco Use Status: Never Smoking risk assessment performed?: Yes Alcohol Intake: never Drug use: Current Sobriety Substance use type: former substance user, crack/cocaine, heroin and painkillers Details: stopped using substances for the past 4 years Adopted: No Caregiver/Support person: No Foster care: No Household members: none Housing: apartment Number of Children: 0 Communication Needs: None Education Level: high school Do you need help understanding health information?: Never current occupation: [employer] Pets and animals: Yes (Ally) Pets and animals: dog(s) Sexually active: No Do you think of yourself as: straight/heterosexual Current gender identity: male What is your relationship status?: How often do you talk on the phone with friends or family?: twice per week How often do you get together with friends or relatives?: never Do you belong to any clubs or organized social groups?: no Panel score (0-1 are the most socially isolated patients): 0 What type of physical activity do you participate in: walking Duration: 15-30 minutes/day Frequency: 5-6 times per week Maryam/Worship: Tenriism Special maryam needs: No Seatbelt use: always Helmet use: Yes Helmet use: always Drive intox or ride w/intox home 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
[2025-05-26 10:23] LABS: Abs Immature Grans 0.05 10^3/uL (0.0-0.06); HCT 29.1 % (40.0-50.0); HGB 8.9 g/dL (13.5-17.5); Immature Grans % 0.4 %; MCH 23.8 pg (27.0-33.0); MCHC 30.6 % (32.0-36.0); MCV 78 fL (80-95); MPV 10.5 fL (8.0-11.0); Platelet Count 397 10^3/uL (130-400); RBC 3.74 10^6/uL (4.36-5.78); RDW 16.8 % (11.8-14.1); RDW-SD 47.6 fL; WBC 11.59 10^3/uL (4.4-10.8)
[2025-05-26] MEDS: Albuterol/Ipratropium 3 ML UPD VIAL UPD (10:25)
[2025-05-26 10:40] LABS: Magnesium 1.6 mg/dL (1.6-2.6)
[2025-05-26 10:41] LABS: ALT 28 U/L (10-49); AST 25 U/L (<34); Albumin 4.0 g/dL (3.2-5.0); Alkaline Phosphatase 110 U/L (46-116); Anion Gap 8.9 mmol/L (3-11); BUN 12 mg/dL (9-23); Bilirubin, Total 0.2 mg/dL (0.2-1.2); CO2 29.1 mmol/L (20.0-31.0); Calcium 8.7 mg/dL (8.3-10.6); Chloride 102 mmol/L (98-107); Glucose 105 mg/dL (74-106); Potassium 3.8 mmol/L (3.5-5.1); Sodium 140 mmol/L (136-145); Total Protein 7.5 g/dL (5.7-8.2)
[2025-05-26 10:52] LABS: Troponin I < 3 ng/L (<54)
[2025-05-26 10:58] LABS: D-Dimer 175 ng/mlFEU (<500)
[2025-05-26 11:06] LABS: COVID-19 PCR Negative (Negative); RSV PCR Negative (Negative)
--- NOTE | 2025-05-26 11:15 | DI.RAD_ITS ---
Exam(s) XR RIBS LT W PA LAT CHEST CLINICAL HISTORY: L axillary rib pain. COMPARISON: CR,XR XR CHEST 2V PA LATERAL from 05/21/2025 TECHNIQUE:: PA and lateral views of the chest and 3 views of the left ribs were performed. FINDINGS: LUNGS:Clear. No pleural abnormality seen. HEART: Normal size. MEDIASTINUM: Normal. BONES: No displaced rib fracture is seen. No bony destructive lesion is seen. IMPRESSION: 1. Unremarkable radiographic appearance of the left ribs. 2. No acute pulmonary findings.
== END 2025-05-26 13:01 | disposition home or self-care (01) ==
PROVIDERS: Emergency Provider Physician Assistant; PCP Physician Assistant
DX: R06.02 Shortness of breath (principal); Z60.8 Other problems related to social environment; R07.89 Other chest pain
CPT/HCPCS: 99283; 99284; 94640; 80053; 87637; 93005; 71046; 71100; 83735; 84484; 85025; 85379; 93010; J7620

== ENCOUNTER 2025-05-29 22:40 | Emergency (ER) | payer OTHER, SELFPAY ==
[2025-05-29 22:48] VITALS: BP 131/86; PULSE 110; RESP 16; TEMP 36.7; O2SAT 95
--- NOTE | 2025-05-29 23:00 | W.ED.GENAD ---
Discharge Plan Disposition Patient Disposition: Home Condition: Good Discharge Details Clinical Impression: Diarrhea Primary Care Provider: Sanjana Pritchett ED Provider: Santiago Ibarra Sikes Meds and New Rx's Prescriptions: Continued gabapentin 300 mg capsule 300 mg PO BID Qty: 180 3RF omeprazole 40 mg capsule,delayed release(DR/EC) 40 mg PO DAILY Qty: 90 3RF lorazepam 1 mg tablet 1 mg PO DAILY PRN (Reason: anxiety) Qty: 10 0RF Rx Instructions: Use when considering ER visit cyclobenzaprine 10 mg tablet 10 mg PO TID PRN (Reason: muscle spasm) Qty: 30 3RF Eliquis 5 mg tablet 5 mg PO BID Qty: 60 6RF methadone 10 mg/5 mL solution 100 mg PO QAM calcitriol 0.5 mcg capsule 1 mcg PO .COMPLEX Qty: 270 3RF Rx Instructions: 1 mcg orally t2 tabs qam and 1 tab QHS; folic acid 1 mg tablet 1 mg PO DAILY Qty: 30 6RF calcium carbonate [Tums] 200 mg calcium (500 mg) tablet,chewable 2,000 mg PO BID polyethylene glycol 3350 17 gram powder in packet 17 g PO BID PRN magnesium gluconate 27 mg magnesium (500 mg) tablet 500 mg PO BID Rx Instructions: takes 500mg QAM and 1000mg QHS diclofenac sodium 1 % gel 2 g topical QID Qty: 50 0RF Rx Instructions: apply to single elbow, wrist or hand; for hand includes palm/fingers/back of hand famotidine 20 mg tablet 20 mg PO BID Qty: 30 0RF sucralfate 1 gram tablet 1 g PO QACHS Qty: 90 0RF ondansetron 4 mg tablet,disintegrating 4 mg PO Q8H PRNQty: 20 0RF clonazepam 1 mg tablet 1 mg PO BID Qty: 10 0RF prochlorperazine maleate [Compazine] 10 mg tablet 10 mg PO Q6H PRNQty: 10 0RF Discontinued clindamycin HCl [Cleocin HCl] 300 mg capsule 300 mg PO BID 7 Days Qty: 14 0RF Rx Instructions: Take 1 capsule by mouth twice daily for the next 7 days Discharge Instructions Additional Instructions: You were seen in the ED for continued fever, weakness, malaise, diarrhea. Suspect the diarrhea and GI symptoms are related to the clindamycin and given no evidence of cellulitis or skin infection currently, would stop. Previous work ups have been reassuring the last two weeks. Urine is not infected. Please follow up with PCP for further evaluation. Return to ED for mental status changes/confusion, worsening abdominal pain, bloody diarrhea, persistent vomiting, other concerns. Stand Alone Forms: Portal Information HPI General Mode of arrival: ambulatory. Date/Time Provider Initiated Documentation: 05/29/25 22:49. Limitations to Documentation: no limitations. Information obtained by: patient and RN notes reviewed. HPI Narrative: Patient presents to ED with complaint of continue fever, weakness, malaise and no some GI symptoms and diarrhea. Patient has had a number of visits to ED for CP and SOB this month. Work up has been negative including Fluvid tests, CTA chest, CXR. He was put on doxycycline for question of a cellulitis to his chest. This was subsequently changed to clindamycin after a possible allergic type reaction to the doxycycline. Reports that he is still having fevers and was 101 tonight. Took acetaminophen prior to coming in. Now having some vague left upper quadrant abdominal pain and diarrhea. The continued fever is not what causes him the most at this point. Is not having any chest pain or shortness of breath currently. Related Data Home Medications ?Medication ?Instructions ?Recorded ?Confirmed calcium carbonate (Tums) 2,000 mg PO BID 02/02/23 05/29/25 methadone 10 mg/5 mL oral solution 100 mg PO QAM 06/12/23 05/29/25 gabapentin 300 mg capsule 300 mg PO BID #180 caps 06/01/24 05/29/25 calcitriol 0.5 mcg capsule 1 mcg (2 x 0.5 mcg) PO .COMPLEX 06/29/24 05/29/25 #270 caps omeprazole 40 mg capsule,delayed 40 mg PO DAILY #90 caps 07/27/24 05/29/25 release polyethylene glycol 3350 17 gram 17 g PO BID PRN 10/15/24 05/29/25 oral powder packet lorazepam 1 mg tablet 1 mg PO DAILY PRN anxiety #10 tabs 10/19/24 05/29/25 cyclobenzaprine 10 mg tablet 10 mg PO TID PRN muscle spasm #30 11/16/24 05/29/25 tabs magnesium gluconate 27 mg 500 mg PO BID 01/30/25 05/29/25 magnesium (500 mg) tablet diclofenac sodium 1 % topical gel 2 g topical QID #50 grams 02/03/25 05/29/25 apixaban 5 mg tablet (Eliquis) 5 mg PO BID #60 tabs 03/08/25 05/29/25 famotidine 20 mg tablet 20 mg PO BID #30 tabs 03/15/25 05/29/25 ondansetron 4 mg disintegrating 4 mg PO Q8H PRN #20 tabs 03/15/25 05/29/25 tablet sucralfate 1 gram tablet 1 g PO QACHS #90 tabs 03/15/25 05/29/25 prochlorperazine maleate 10 mg 10 mg PO Q6H PRN #10 tabs 03/16/25 05/29/25 tablet (Compazine) folic acid 1 mg tablet 1 mg PO DAILY #30 tabs 03/17/25 05/29/25 clonazepam 1 mg tablet 1 mg PO BID #10 tabs 04/03/25 05/29/25 Previous Rx's ?Medication ?Instructions ?Recorded gabapentin 300 mg capsule 300 mg PO BID #180 caps 06/01/24 calcitriol 0.5 mcg capsule 1 mcg (2 x 0.5 mcg) PO .COMPLEX 06/29/24 #270 caps omeprazole 40 mg capsule,delayed 40 mg PO DAILY #90 caps 07/27/24 release lorazepam 1 mg tablet 1 mg PO DAILY PRN anxiety #10 tabs 10/19/24 cyclobenzaprine 10 mg tablet 10 mg PO TID PRN muscle spasm #30 11/16/24 tabs diclofenac sodium 1 % topical gel 2 g topical QID #50 grams 02/03/25 apixaban 5 mg tablet (Eliquis) 5 mg PO BID #60 tabs 03/08/25 famotidine 20 mg tablet 20 mg PO BID #30 tabs 03/15/25 ondansetron 4 mg disintegrating 4 mg PO Q8H PRN #20 tabs 03/15/25 tablet sucralfate 1 gram tablet 1 g PO QACHS #90 tabs 03/15/25 prochlorperazine maleate 10 mg 10 mg PO Q6H PRN #10 tabs 03/16/25 tablet (Compazine) folic acid 1 mg tablet 1 mg PO DAILY #30 tabs 10/02/25 clonazepam 1 mg tablet 1 mg PO BID #10 tabs 04/03/25 Allergies Allergy/AdvReac Type Severity Reaction Status Date / Time doxycycline Allergy Severe Anaphylaxis Verified 05/29/25 22:52 Penicillins Allergy Skin Rash Verified 05/29/25 22:51 marijuana (cannabis) AdvReac Severe Paranoia Verified 05/29/25 22:51 amoxicillin AdvReac Intermediate Nausea Verified 05/29/25 22:51 codeine AdvReac Intermediate pass out Verified 05/29/25 22:51 dextromethorphan (From AdvReac Intermediate got Verified 05/29/25 22:51 NyQuil) really hot and sweaty doxylamine (From NyQuil) AdvReac Intermediate got Verified 05/29/25 22:51 really hot and sweaty pseudoephedrine (From NyQuil) AdvReac Intermediate got Verified 05/29/25 22:51 really hot and sweaty General Stated Complaint: Fever ADRIANA: 3 Exam Narrative Exam Narrative: Const: Obese male in NAD. VS per triage. HEENT: NC/AT. Normal facial exam. Neck: Supple. Trachea midline. Lungs: Normal respiratory effort. Lungs are clear. Cor: RRR without murmur. Good radial pulses. GI: Soft/ND/NT. Neuro: A+O x 3. Normal speech, mentation, gait. Cranial nerves II - XII grossly intact. No gross motor or sensory deficit. Skin: No cellulitis/rash present. Course Vital Signs Vital signs: Vital Signs Temperature 98.1 F 05/29/25 22:48 Pulse 110 H 05/29/25 22:48 Respiratory Rate 16 05/29/25 22:48 Blood Pressure 131/86 05/29/25 22:48 Pulse Oximetry 95 05/29/25 22:48 Temperature 98.1 F 05/29/25 22:48 Temperature Source Oral 05/29/25 22:48 Pulse 110 H 05/29/25 22:48 Respiratory Rate 16 05/29/25 22:48 Blood Pressure 131/86 05/29/25 22:48 Blood Pressure Position Sitting 05/29/25 22:48 Pulse Oximetry 95 05/29/25 22:48 Oxygen Delivery Method Room Air 05/29/25 22:48 Oxygen Flow Rate 0 05/29/25 22:48 Medical Decision Making Patient returns to ED for continued complaint of fever, malaise, weakness. He has no chest pain or respiratory complaints tonight. He does report abdominal pain and diarrhea. His abdominal exam is completely benign. He is on clindamycin for possible cellulitis to the chest wall but has no evidence of any type of skin structure infection currently. He had a POCUS here on the that revealed no abscess and documentation that there was no clear evidence of infection. Seems that urgent care started him on doxy which was changed to clinda by us the . I suspect this is what is causing the new GI symptoms. I do not feel that he has an acute abdomen and does not need imaging. He has had a CTA of chest and two CXR this month already. Labs were done on the and were unremarkable. I do not believe repeat labs will add anything given they have been unremarkable on numerous visits here this month. He is not febrile here though he states he took Tylenol before coming in. Will check a urine but he is not having urinary symptoms. U/A is negative. I have asked patient to stop the clindamycin as this is likely his source of the diarrhea. There does not appear to be a skin structure infection currently. Patient encouraged to follow up with PCP. Return precautions provided. Lab Data Lab results reviewed: Yes I reviewed the patient's lab results. Quality:SDOH Health Related Social Needs: Health related social needs lonely/isolated Health related social needs details patient here frequently due to anxiety. PFSH All Active Problems (Updated 05/30/25 @ 00:04 by HAMMAD WILEY) Diarrhea (Acute) Shortness of breath (Acute) Adverse effect of local antifungal, anti-infective and anti-inflammatory drugs, initial encounter (Acute) Wrist pain, left (Acute) Tenderness of chest wall (Acute) Pain in right arm (Acute) Cough (Acute) Rhinorrhea (Acute) Acute viral syndrome (Acute) Hemoptysis (Acute) Chest pain (Acute) Chest pain, unspecified (Acute) Palpitations (Acute) Light-headed feeling (Acute) Irritation of radial nerve (Acute) Chest pain (Acute) Hyperhomocysteinemia (Acute) Pulmonary infiltrates (Acute) Snoring (Acute) Pleural effusion (Acute) Rt groin pain (Acute) Rash (Acute) Shortness of breath (Acute) Edema, peripheral (Acute) Anxiety (Chronic) Chest discomfort (Acute) Pulmonary embolism and infarction (Acute) Left pulmonary infiltrate on CXR (Acute) Bilateral pulmonary embolism (Acute) Tenderness of neck (Acute) Right elbow pain (Acute) Acute leg pain (Acute) Bronchitis (Acute) Well adult health check (Acute) Obstructive sleep apnea (Chronic) Metabolic dysfunction-associated fatty liver disease (MAFLD) (Acute) Fatty liver (Acute) IBS (irritable bowel syndrome) (Chronic) Obesity (Chronic) Migraine with aura (Acute) Testicle lump (Acute) Pes anserine bursitis (Acute) Left-sided Flower's palsy (Acute) Opiate dependence, continuous (Acute) 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 Possible 2' Methadone, Clnzpm (?). Surg eval (+)/No further action. History of electrolyte imbalance (Acute) Neck pain on left side (Acute) with shoulder, upper back pain.. torticollis, radiating into left hip/leg Pulmonary nodule 1 cm or greater in diameter (Chronic) Therapeutic opioid induced constipation (Acute) Sphincter of Oddi dysfunction (Chronic) Abnormal CT scan, kidney (Acute) Intrahepatic bile duct dilation (Acute) Common bile duct dilatation (Chronic) Has been dilated for quite some time, now more-so. Normal LFTs. Known gallstones. 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 Hypocalcemia Anxiety Depression Hyperlipidemia Family history of multiple endocrine neoplasia, type 1 PTSD (post-traumatic stress disorder) Per pt. states no triggers at this time. Surgical History History of laparoscopic cholecystectomy (~11/2023) H/O parathyroidectomy Family History Mother Anxiety Asthma Depression Sister Anxiety Depression Father Cancer lung & stomach Depression Diabetes Hypertension MEN 1 (multiple endocrine neoplasia) Social History Smoking/Tobacco Use Status: Never Smoking risk assessment performed?: Yes Alcohol Intake: never Drug use: Current Sobriety Substance use type: former substance user, crack/cocaine, heroin and painkillers Details: stopped using substances for the past 4 years Adopted: No Caregiver/Support person: No Foster care: No Household members: none Housing: apartment Number of Children: 0 Communication Needs: None Education Level: high school Do you need help understanding health information?: Never current occupation: [employer] Pets and animals: Yes (Ally) Pets and animals: dog(s) Sexually active: No Do you think of yourself as: straight/heterosexual Current gender identity: male What is your relationship status?: How often do you talk on the phone with friends or family?: twice per week How often do you get together with friends or relatives?: never Do you belong to any clubs or organized social groups?: no Panel score (0-1 are the most socially isolated patients): 0 What type of physical activity do you participate in: walking Duration: 15-30 minutes/day Frequency: 5-6 times per week Maryam/Rastafari: Buddhism Special maryam needs: No Seatbelt use: always Helmet use: Yes Helmet use: always 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
[2025-05-29 23:26] LABS: Glucose Negative (Negative)
[2025-05-30] VITALS: BP 119/89; PULSE 90; RESP 19; TEMP 36.6; O2SAT 96
== END 2025-05-30 | disposition home or self-care (01) ==
PROVIDERS: Emergency Provider Emergency Medicine; PCP Physician Assistant
DX: R19.7 Diarrhea, unspecified (principal); R50.9 Fever, unspecified; R53.1 Weakness; R53.81 Other malaise
CPT/HCPCS: 99283; 99282; 81003

== ENCOUNTER 2025-05-31 07:58 | Emergency (ER) | payer OTHER, SELFPAY ==
--- NOTE | 2025-05-31 08:06 | W.ED.GENAD ---
Discharge Plan Disposition Patient Disposition: Home Discharge Details Clinical Impression: Globus sensation Primary Care Provider: Sanjana Pritchett ED Provider: Pedro Wolfe [place] Meds and New Rx's Prescriptions: Continued gabapentin 300 mg capsule 300 mg PO BID Qty: 180 3RF omeprazole 40 mg capsule,delayed release(DR/EC) 40 mg PO DAILY Qty: 90 3RF lorazepam 1 mg tablet 1 mg PO DAILY PRN (Reason: anxiety) Qty: 10 0RF Rx Instructions: Use when considering ER visit cyclobenzaprine 10 mg tablet 10 mg PO TID PRN (Reason: muscle spasm) Qty: 30 3RF Eliquis 5 mg tablet 5 mg PO BID Qty: 60 6RF methadone 10 mg/5 mL solution 100 mg PO QAM calcitriol 0.5 mcg capsule 1 mcg PO .COMPLEX Qty: 270 3RF Rx Instructions: 1 mcg orally t2 tabs qam and 1 tab QHS; folic acid 1 mg tablet 1 mg PO DAILY Qty: 30 6RF calcium carbonate [Tums] 200 mg calcium (500 mg) tablet,chewable 2,000 mg PO BID polyethylene glycol 3350 17 gram powder in packet 17 g PO BID PRN magnesium gluconate 27 mg magnesium (500 mg) tablet 500 mg PO BID Rx Instructions: takes 500mg QAM and 1000mg QHS diclofenac sodium 1 % gel 2 g topical QID Qty: 50 0RF Rx Instructions: apply to single elbow, wrist or hand; for hand includes palm/fingers/back of hand famotidine 20 mg tablet 20 mg PO BID Qty: 30 0RF sucralfate 1 gram tablet 1 g PO QACHS Qty: 90 0RF ondansetron 4 mg tablet,disintegrating 4 mg PO Q8H PRNQty: 20 0RF clonazepam 1 mg tablet 1 mg PO BID Qty: 10 0RF clindamycin HCl 300 mg capsule 300 mg PO BID Patient Comments: TAKE ONE CAPSULE BY MOUTH TWICE A DAY FOR 7 DAYS prochlorperazine maleate [Compazine] 10 mg tablet 10 mg PO Q6H PRNQty: 10 0RF Discharge Instructions Additional Instructions: You were seen in Emergency Department for your foreign body sensation. Please return to the emergency department if you develop vomiting that does not stop fevers or trouble breathing. Stand Alone Forms: Portal Information Discharge Data Discharge Date/Time-TO BE ENTERED AT DEPARTURE: 05/31/25 09:29 [facility] General Date/Time Provider Initiated Documentation: 05/31/25 08:06. HPI Narrative: MDM This is a quite well-appearing normothermic and initially tachycardic 29-year-old male with globus sensation following clindamycin capsule which he swallowed last night. He is handling his secretions and has subsequently tolerated p.o. and has resolved so not suspicious for esophageal impaction. He is nontoxic and not had any fever so my suspicion for pill esophagitis is low. He has no signs of oral candidiasis on exam. He has not been vomiting to suggest esophageal rupture. He does not have any chest pain to suggest ACS nor some burning discomfort. I treated him with Mylanta and viscous lidocaine. He felt improved. His heart rate nearly normalized. It is not atypical for him to have some mild tachycardia. Equal breath sounds and no trauma to chest without pneumothorax. No cough to suggest pneumonia. I considered PE however in the absence of chest pain and hypoxia I did not feel that the patient required CTA treatment. No dysuria or frequency to suggest UTI. Patient and I discussed that she should return to the emergency department if you cannot eat or drink. He understood his return indications and was discharged with an empiric trial of expectant outpatient management. HPI This is a patient with a history of hypertension presenting with heartburn and throat pain. The patient reports experiencing heartburn since last night, around 8:30 PM, after taking clindamycin. He describes a sensation of the capsule being stuck in his throat, causing irritation and swelling. Initially, the discomfort was mild but has since escalated to pain, particularly during burping, which he describes as a burning sensation similar to heartburn. He feels his throat is swollen and painful when swallowing. He has been drinking a lot of water in an attempt to alleviate the discomfort but has not found relief. He has not vomited. He tried eating a donut, which caused pain when swallowing, and eating chicken last night resulted in significant pain. He currently feels hot and reports a sensation of heat in his face. He has had high blood pressure, with a reading of 166/73 at home, which is significantly higher than his usual range of 110/70 to 115/70. Exam General: Well-appearing in no acute distress speaking in complete sentences. Head: Normocephalic, atraumatic. Eye: Extraocular eye movements intact. No conjunctival injection. No scleral icterus. Ear, nose, mouth, throat: Grossly normal inspection. Normal voice, handling secretions normally. No significant posterior oropharynx erythema. No signs of oral candidiasis. Neck: Trachea midline. Cardiovascular: Well-perfused distal extremities. Rapid regular rate Respiratory: Nonlabored respiration. Gastrointestinal: Nondistended abdomen. Soft. Nontender. Musculoskeletal: No edema. Moving all 4 extremities spontaneously. Skin: Normal for age and race, grossly normal temperature and turgor. No acute rash. Neurologic: Alert and appropriate, no apparent acute deficits. Psychiatric: Mood and manner are appropriate. Grooming and personal hygiene are appropriate. Related Data Home Medications ?Medication ?Instructions ?Recorded ?Confirmed calcium carbonate (Tums) 2,000 mg PO BID 02/02/23 05/31/25 methadone 10 mg/5 mL oral solution 100 mg PO QAM 06/12/23 05/31/25 gabapentin 300 mg capsule 300 mg PO BID #180 caps 06/01/24 05/31/25 calcitriol 0.5 mcg capsule 1 mcg (2 x 0.5 mcg) PO .COMPLEX 06/29/24 05/31/25 #270 caps omeprazole 40 mg capsule,delayed 40 mg PO DAILY #90 caps 07/27/24 05/31/25 release polyethylene glycol 3350 17 gram 17 g PO BID PRN 10/15/24 05/31/25 oral powder packet lorazepam 1 mg tablet 1 mg PO DAILY PRN anxiety #10 tabs 10/19/24 05/31/25 cyclobenzaprine 10 mg tablet 10 mg PO TID PRN muscle spasm #30 11/16/24 05/31/25 tabs magnesium gluconate 27 mg 500 mg PO BID 01/30/25 05/31/25 magnesium (500 mg) tablet diclofenac sodium 1 % topical gel 2 g topical QID #50 grams 02/03/25 05/31/25 apixaban 5 mg tablet (Eliquis) 5 mg PO BID #60 tabs 03/08/25 05/31/25 famotidine 20 mg tablet 20 mg PO BID #30 tabs 03/15/25 05/31/25 ondansetron 4 mg disintegrating 4 mg PO Q8H PRN #20 tabs 03/15/25 05/31/25 tablet sucralfate 1 gram tablet 1 g PO QACHS #90 tabs 03/15/25 05/31/25 prochlorperazine maleate 10 mg 10 mg PO Q6H PRN #10 tabs 03/16/25 05/31/25 tablet (Compazine) folic acid 1 mg tablet 1 mg PO DAILY #30 tabs 03/17/25 05/31/25 clonazepam 1 mg tablet 1 mg PO BID #10 tabs 04/03/25 05/31/25 clindamycin HCl 300 mg capsule 300 mg PO BID 05/31/25 05/31/25 Previous Rx's ?Medication ?Instructions ?Recorded gabapentin 300 mg capsule 300 mg PO BID #180 caps 06/01/24 calcitriol 0.5 mcg capsule 1 mcg (2 x 0.5 mcg) PO .COMPLEX 06/29/24 #270 caps omeprazole 40 mg capsule,delayed 40 mg PO DAILY #90 caps 07/27/24 release lorazepam 1 mg tablet 1 mg PO DAILY PRN anxiety #10 tabs 10/19/24 cyclobenzaprine 10 mg tablet 10 mg PO TID PRN muscle spasm #30 11/16/24 tabs diclofenac sodium 1 % topical gel 2 g topical QID #50 grams 02/03/25 apixaban 5 mg tablet (Eliquis) 5 mg PO BID #60 tabs 03/08/25 famotidine 20 mg tablet 20 mg PO BID #30 tabs 03/15/25 ondansetron 4 mg disintegrating 4 mg PO Q8H PRN #20 tabs 03/15/25 tablet sucralfate 1 gram tablet 1 g PO QACHS #90 tabs 03/15/25 prochlorperazine maleate 10 mg 10 mg PO Q6H PRN #10 tabs 03/16/25 tablet (Compazine) folic acid 1 mg tablet 1 mg PO DAILY #30 tabs 03/17/25 clonazepam 1 mg tablet 1 mg PO BID #10 tabs 04/03/25 Allergies Allergy/AdvReac Type Severity Reaction Status Date / Time doxycycline Allergy Severe Anaphylaxis Verified 05/31/25 10:39 Penicillins Allergy Skin Rash Verified 05/31/25 10:39 marijuana (cannabis) AdvReac Severe Paranoia Verified 05/31/25 10:39 amoxicillin AdvReac Intermediate Nausea Verified 05/31/25 10:39 codeine AdvReac Intermediate pass out Verified 05/31/25 10:39 dextromethorphan (From AdvReac Intermediate got Verified 05/31/25 10:39 NyQuil) really hot and sweaty doxylamine (From NyQuil) AdvReac Intermediate got Verified 05/31/25 10:39 really hot and sweaty pseudoephedrine (From NyQuil) AdvReac Intermediate got Verified 05/31/25 10:39 really hot and sweaty General ADRIANA: 3 Medical Decision Making Quality:SDOH Health Related Social Needs: Health related social needs lonely/isolated Health related social needs details patient here frequently due to anxiety. PFSH All Active Problems (Updated 05/31/25 @ 11:40 by Pedro Wolfe MD) Palpitations (Acute) Globus sensation (Acute) Diarrhea (Acute) Shortness of breath (Acute) Adverse effect of local antifungal, anti-infective and anti-inflammatory drugs, initial encounter (Acute) Wrist pain, left (Acute) Tenderness of chest wall (Acute) Pain in right arm (Acute) Cough (Acute) Rhinorrhea (Acute) Acute viral syndrome (Acute) Hemoptysis (Acute) Chest pain (Acute) Chest pain, unspecified (Acute) Palpitations (Acute) Light-headed feeling (Acute) Irritation of radial nerve (Acute) Chest pain (Acute) Hyperhomocysteinemia (Acute) Pulmonary infiltrates (Acute) Snoring (Acute) Pleural effusion (Acute) Rt groin pain (Acute) Rash (Acute) Shortness of breath (Acute) Edema, peripheral (Acute) Anxiety (Chronic) Chest discomfort (Acute) Pulmonary embolism and infarction (Acute) Left pulmonary infiltrate on CXR (Acute) Bilateral pulmonary embolism (Acute) Tenderness of neck (Acute) Right elbow pain (Acute) Acute leg pain (Acute) Bronchitis (Acute) Well adult health check (Acute) Obstructive sleep apnea (Chronic) Metabolic dysfunction-associated fatty liver disease (MAFLD) (Acute) Fatty liver (Acute) IBS (irritable bowel syndrome) (Chronic) Obesity (Chronic) Migraine with aura (Acute) Testicle lump (Acute) Pes anserine bursitis (Acute) Left-sided Flower's palsy (Acute) Opiate dependence, continuous (Acute) 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 Possible 2' Methadone, Clnzpm (?). Surg eval (+)/No further action. History of electrolyte imbalance (Acute) Neck pain on left side (Acute) with shoulder, upper back pain.. torticollis, radiating into left hip/leg Pulmonary nodule 1 cm or greater in diameter (Chronic) Therapeutic opioid induced constipation (Acute) Sphincter of Oddi dysfunction (Chronic) Abnormal CT scan, kidney (Acute) Intrahepatic bile duct dilation (Acute) Common bile duct dilatation (Chronic) Has been dilated for quite some time, now more-so. Normal LFTs. Known gallstones. 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 Hypocalcemia Anxiety Depression Hyperlipidemia Family history of multiple endocrine neoplasia, type 1 PTSD (post-traumatic stress disorder) Per pt. states no triggers at this time. Surgical History History of laparoscopic cholecystectomy (~11/2023) H/O parathyroidectomy Family History Mother Anxiety Asthma Depression Sister Anxiety Depression Father Cancer lung & stomach Depression Diabetes Hypertension MEN 1 (multiple endocrine neoplasia) Social History Smoking/Tobacco Use Status: Never Smoking risk assessment performed?: Yes Alcohol Intake: never Drug use: Current Sobriety Substance use type: former substance user, crack/cocaine, heroin and painkillers Details: stopped using substances for the past 4 years Adopted: No Caregiver/Support person: No Foster care: No Household members: none Housing: apartment Number of Children: 0 Communication Needs: None Education Level: high school Do you need help understanding health information?: Never 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[employer] Pets and animals: Yes (Ally) Pets and animals: dog(s) Sexually active: No Do you think of yourself as: straight/heterosexual Current gender identity: male What is your relationship status?: How often do you talk on the phone with friends or family?: twice per week How often do you get together with friends or relatives?: never Do you belong to any clubs or organized social groups?: no Panel score (0-1 are the most socially isolated patients): 0 What type of physical activity do you participate in: walking Duration: 15-30 minutes/day Frequency: 5-6 times per week Maryam/Mormon: Lutheran Special maryam needs: No Seatbelt use: always Helmet use: Yes Helmet use: always Drive intox or ride w/intox school bus driver/custodian: No Do you feel safe at home: Yes Do you feel safe in your relationship?: Yes
[2025-05-31 08:09] VITALS: BP 166/73; PULSE 124; RESP 14; TEMP 36.8; O2SAT 96
[2025-05-31] MEDS: MYLANTA 30 ML, LIDOCAINE 2% VISCOUS UD 15 ML PO (09:14)
[2025-05-31 09:19] VITALS: PULSE 102
== END 2025-05-31 09:29 | disposition home or self-care (01) ==
LOC: ER 10:22
PROVIDERS: Emergency Provider Emergency Medicine; PCP Physician Assistant
DX: R09.A2 Foreign body sensation, throat (principal)
CPT/HCPCS: 99283 ×2

== ENCOUNTER 2025-05-31 10:31 | Emergency (ER) | payer OTHER, SELFPAY ==
--- NOTE | 2025-05-31 10:15 | RT.EKG_ITS ---
APPROVED REPORT Exam: Resting ECG Reason for Exam: Papatations Patient Location: E HR:125 bpm ECG Measurements Heart Rate 125 AXIS [place] 154 P 46 QRSd 95 QRS 99 QT 320 T 4 QTc 462 Conclusion Sinus tachycardia...rate> 99 No Occlusion [place]
[2025-05-31 10:32] VITALS: BP 134/79; PULSE 130; RESP 22; TEMP 36.9; O2SAT 95
--- NOTE | 2025-05-31 10:43 | W.ED.GENAD ---
Discharge Plan Disposition Patient Disposition: Home Discharge Details Clinical Impression: Palpitations Primary Care Provider: Sanjana Pritchett ED Provider: Pedro Wolfe Loris Meds and New Rx's Prescriptions: Continued gabapentin 300 mg capsule 300 mg PO BID Qty: 180 3RF omeprazole 40 mg capsule,delayed release(DR/EC) 40 mg PO DAILY Qty: 90 3RF lorazepam 1 mg tablet 1 mg PO DAILY PRN (Reason: anxiety) Qty: 10 0RF Rx Instructions: Use when considering ER visit cyclobenzaprine 10 mg tablet 10 mg PO TID PRN (Reason: muscle spasm) Qty: 30 3RF Eliquis 5 mg tablet 5 mg PO BID Qty: 60 6RF methadone 10 mg/5 mL solution 100 mg PO QAM calcitriol 0.5 mcg capsule 1 mcg PO .COMPLEX Qty: 270 3RF Rx Instructions: 1 mcg orally t2 tabs qam and 1 tab QHS; folic acid 1 mg tablet 1 mg PO DAILY Qty: 30 6RF calcium carbonate [Tums] 200 mg calcium (500 mg) tablet,chewable 2,000 mg PO BID polyethylene glycol 3350 17 gram powder in packet 17 g PO BID PRN magnesium gluconate 27 mg magnesium (500 mg) tablet 500 mg PO BID Rx Instructions: takes 500mg QAM and 1000mg QHS diclofenac sodium 1 % gel 2 g topical QID Qty: 50 0RF Rx Instructions: apply to single elbow, wrist or hand; for hand includes palm/fingers/back of hand famotidine 20 mg tablet 20 mg PO BID Qty: 30 0RF sucralfate 1 gram tablet 1 g PO QACHS Qty: 90 0RF ondansetron 4 mg tablet,disintegrating 4 mg PO Q8H PRNQty: 20 0RF clonazepam 1 mg tablet 1 mg PO BID Qty: 10 0RF clindamycin HCl 300 mg capsule 300 mg PO BID Patient Comments: TAKE ONE CAPSULE BY MOUTH TWICE A DAY FOR 7 DAYS prochlorperazine maleate [Compazine] 10 mg tablet 10 mg PO Q6H PRNQty: 10 0RF Discharge Instructions Instructions: Palpitations Additional Instructions: You are seen in the emergency department for your palpitations. Your EKG shows that your heart is working well and has no signs of a heart attack. As we discussed if you develop any black or bloody stools begin feeling nauseous and do not stop vomiting or if you have any other concerns please return to the emergency department. Otherwise please follow-up with your primary care provider. Stand Alone Forms: Portal Information Discharge Data Discharge Date/Time-TO BE ENTERED AT DEPARTURE: 05/31/25 11:54 HPI General Date/Time Provider Initiated Documentation: 05/31/25 10:38. HPI Narrative: MDM This is a quite well-appearing normothermic and initially tachycardic 79-year-old male with recurrent palpitations now resolved. He was seen earlier today with concerns for something in his throat. He feels improved now. He transient left arm pain and this is resolved. He has no weakness to suggest CVA. Hand well up perfused so I am not suspicious for critical limb ischemia nor DVT. Patient was adherent with his anticoagulation. Patient's heart rate resolved in the ED. We discussed that the baby aspirin he received prehospital are relatively low risk for GI bleed despite his apixaban. I advised him that he should not consistently take ibuprofen nor aspirin which he understood. He is handling his secretions so not suspicious for esophageal impaction. In the absence of vomiting I do not feel he requires glucagon nor consideration of endoscopy. [Diagnostic interpretations performed by me: Per my independent interpretation EKG shows: Neuro pelvic sinus tachycardia rate of 125. Normal axis. Intervals within normal limits. No ST segment abnormalities. T wave version lead III. Compared to prior dated 4 days ago T wave inversion in lead III is more pronounced. No acute injury pattern. HPI This is a patient with a history of tachycardia presenting with symptoms of elevated heart rate and associated discomfort. The patient reports experiencing a significant health episode last year, during which his heart rate reached 173 beats per minute. This was accompanied by lightheadedness and dizziness. The fire department provided assistance and seated him due to his persistently high heart rate. He felt nauseous and had a sensation of impending vomiting. During a subsequent visit to the post office, he experienced audible heart palpitations, which caused gastrointestinal discomfort. Despite these symptoms, he declined ambulance transport, opting instead to rest and attempt to regain composure. Currently, he reports his heart rate is still slightly elevated and he feels numbness in his hands, a symptom he occasionally experiences during episodes of anxiety. He also mentions feeling lightheaded, to the point of near syncope. Exam General: Well-appearing in no acute distress speaking in complete sentences. Head: Normocephalic, atraumatic. Eye: Extraocular eye movements intact. No conjunctival injection. No scleral icterus. Ear, nose, mouth, throat: Grossly normal inspection. Normal voice, handling secretions normally. Neck: Trachea midline. Cardiovascular: Well-perfused distal extremities. Regular rate and rhythm. Respiratory: Nonlabored respiration. Clear lungs bilaterally. Gastrointestinal: Nondistended abdomen. Musculoskeletal: No edema. Moving all 4 extremities spontaneously. Bilateral hands Well-perfused. Skin: Normal for age and race, grossly normal temperature and turgor. No acute rash. Neurologic: Alert and appropriate, no apparent acute deficits. GCS 15. Psychiatric: Mood and manner are appropriate. Grooming and personal hygiene are appropriate. Related Data Home Medications ?Medication ?Instructions ?Recorded ?Confirmed calcium carbonate (Tums) 2,000 mg PO BID 02/02/23 05/31/25 methadone 10 mg/5 mL oral solution 100 mg PO QAM 06/12/23 05/31/25 gabapentin 300 mg capsule 300 mg PO BID #180 caps 06/01/24 05/31/25 calcitriol 0.5 mcg capsule 1 mcg (2 x 0.5 mcg) PO .COMPLEX 06/29/24 05/31/25 #270 caps omeprazole 40 mg capsule,delayed 40 mg PO DAILY #90 caps 07/27/24 05/31/25 release polyethylene glycol 3350 17 gram 17 g PO BID PRN 10/15/24 05/31/25 oral powder packet lorazepam 1 mg tablet 1 mg PO DAILY PRN anxiety #10 tabs 10/19/24 05/31/25 cyclobenzaprine 10 mg tablet 10 mg PO TID PRN muscle spasm #30 11/16/24 05/31/25 tabs magnesium gluconate 27 mg 500 mg PO BID 01/30/25 05/31/25 magnesium (500 mg) tablet diclofenac sodium 1 % topical gel 2 g topical QID #50 grams 02/03/25 05/31/25 apixaban 5 mg tablet (Eliquis) 5 mg PO BID #60 tabs 03/08/25 05/31/25 famotidine 20 mg tablet 20 mg PO BID #30 tabs 03/15/25 05/31/25 ondansetron 4 mg disintegrating 4 mg PO Q8H PRN #20 tabs 03/15/25 05/31/25 tablet sucralfate 1 gram tablet 1 g PO QACHS #90 tabs 03/15/25 05/31/25 prochlorperazine maleate 10 mg 10 mg PO Q6H PRN #10 tabs 03/16/25 05/31/25 tablet (Compazine) folic acid 1 mg tablet 1 mg PO DAILY #30 tabs 03/17/25 05/31/25 clonazepam 1 mg tablet 1 mg PO BID #10 tabs 04/03/25 05/31/25 clindamycin HCl 300 mg capsule 300 mg PO BID 05/31/25 05/31/25 Previous Rx's ?Medication ?Instructions ?Recorded gabapentin 300 mg capsule 300 mg PO BID #180 caps 06/01/24 calcitriol 0.5 mcg capsule 1 mcg (2 x 0.5 mcg) PO .COMPLEX 06/29/24 #270 caps omeprazole 40 mg capsule,delayed 40 mg PO DAILY #90 caps 07/27/24 release lorazepam 1 mg tablet 1 mg PO DAILY PRN anxiety #10 tabs 10/19/24 cyclobenzaprine 10 mg tablet 10 mg PO TID PRN muscle spasm #30 11/16/24 tabs diclofenac sodium 1 % topical gel 2 g topical QID #50 grams 02/03/25 apixaban 5 mg tablet (Eliquis) 5 mg PO BID #60 tabs 03/08/25 famotidine 20 mg tablet 20 mg PO BID #30 tabs 03/15/25 ondansetron 4 mg disintegrating 4 mg PO Q8H PRN #20 tabs 03/15/25 tablet sucralfate 1 gram tablet 1 g PO QACHS #90 tabs 03/15/25 prochlorperazine maleate 10 mg 10 mg PO Q6H PRN #10 tabs 03/16/25 tablet (Compazine) folic acid 1 mg tablet 1 mg PO DAILY #30 tabs 03/17/25 clonazepam 1 mg tablet 1 mg PO BID #10 tabs 04/03/25 Allergies Allergy/AdvReac Type Severity Reaction Status Date / Time doxycycline Allergy Severe Anaphylaxis Verified 05/31/25 10:39 Penicillins Allergy Skin Rash Verified 05/31/25 10:39 marijuana (cannabis) AdvReac Severe Paranoia Verified 05/31/25 10:39 amoxicillin AdvReac Intermediate Nausea Verified 05/31/25 10:39 codeine AdvReac Intermediate pass out Verified 05/31/25 10:39 dextromethorphan (From AdvReac Intermediate got Verified 05/31/25 10:39 NyQuil) really hot and sweaty doxylamine (From NyQuil) AdvReac Intermediate got Verified 05/31/25 10:39 really hot and sweaty pseudoephedrine (From NyQuil) AdvReac Intermediate got Verified 05/31/25 10:39 really hot and sweaty General Stated Complaint: Arrhythmia ADRIANA: 3 Course Vital Signs Vital signs: Vital Signs Temperature 36.9 C 05/31/25 10:32 Pulse 130 H 05/31/25 10:32 Respiratory Rate 22 05/31/25 10:32 Blood Pressure 134/79 05/31/25 10:32 Pulse Oximetry 95 05/31/25 10:32 Temperature 36.9 C 05/31/25 10:32 Pulse 130 H 05/31/25 10:32 Respiratory Rate 22 05/31/25 10:32 Blood Pressure 134/79 05/31/25 10:32 Pulse Oximetry 95 05/31/25 10:32 Medical Decision Making Quality:SDOH Health Related Social Needs: Health related social needs lonely/isolated Health related social needs details patient here frequently due to anxiety. PFSH All Active Problems (Updated 05/31/25 @ 11:40 by Pedro Wolfe MD) Palpitations (Acute) Globus sensation (Acute) Diarrhea (Acute) Shortness of breath (Acute) Adverse effect of local antifungal, anti-infective and anti-inflammatory drugs, initial encounter (Acute) Wrist pain, left (Acute) Tenderness of chest wall (Acute) Pain in right arm (Acute) Cough (Acute) Rhinorrhea (Acute) Acute viral syndrome (Acute) Hemoptysis (Acute) Chest pain (Acute) Chest pain, unspecified (Acute) Palpitations (Acute) Light-headed feeling (Acute) Irritation of radial nerve (Acute) Chest pain (Acute) Hyperhomocysteinemia (Acute) Pulmonary infiltrates (Acute) Snoring (Acute) Pleural effusion (Acute) Rt groin pain (Acute) Rash (Acute) Shortness of breath (Acute) Edema, peripheral (Acute) Anxiety (Chronic) Chest discomfort (Acute) Pulmonary embolism and infarction (Acute) Left pulmonary infiltrate on CXR (Acute) Bilateral pulmonary embolism (Acute) Tenderness of neck (Acute) Right elbow pain (Acute) Acute leg pain (Acute) Bronchitis (Acute) Well adult health check (Acute) Obstructive sleep apnea (Chronic) Metabolic dysfunction-associated fatty liver disease (MAFLD) (Acute) Fatty liver (Acute) IBS (irritable bowel syndrome) (Chronic) Obesity (Chronic) Migraine with aura (Acute) Testicle lump (Acute) Pes anserine bursitis (Acute) Left-sided Flower's palsy (Acute) Opiate dependence, continuous (Acute) 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 Possible 2' Methadone, Clnzpm (?). Surg eval (+)/No further action. History of electrolyte imbalance (Acute) Neck pain on left side (Acute) with shoulder, upper back pain.. torticollis, radiating into left hip/leg Pulmonary nodule 1 cm or greater in diameter (Chronic) Therapeutic opioid induced constipation (Acute) Sphincter of Oddi dysfunction (Chronic) Abnormal CT scan, kidney (Acute) Intrahepatic bile duct dilation (Acute) Common bile duct dilatation (Chronic) Has been dilated for quite some time, now more-so. Normal LFTs. Known gallstones. 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 Hypocalcemia Anxiety Depression Hyperlipidemia Family history of multiple endocrine neoplasia, type 1 PTSD (post-traumatic stress disorder) Per pt. states no triggers at this time. Surgical History History of laparoscopic cholecystectomy (~11/2023) H/O parathyroidectomy Family History Mother Anxiety Asthma Depression Sister Anxiety Depression Father Cancer lung & stomach Depression Diabetes Hypertension MEN 1 (multiple endocrine neoplasia) Social History Smoking/Tobacco Use Status: Never Smoking risk assessment performed?: Yes Alcohol Intake: never Drug use: Current Sobriety Substance use type: former substance user, crack/cocaine, heroin and painkillers Details: stopped using substances for the past 4 years Adopted: No Caregiver/Support person: No Foster care: No Household members: none Housing: apartment Number of Children: 0 Communication Needs: None Education Level: high school Do you need help understanding health information?: Never current occupation: [employer] Pets and animals: Yes (Ally) Pets and animals: dog(s) Sexually active: No Do you think of yourself as: straight/heterosexual Current gender identity: male What is your relationship status?: How often do you talk on the phone with friends or family?: twice per week How often do you get together with friends or relatives?: never Do you belong to any clubs or organized social groups?: no Panel score (0-1 are the most socially isolated patients): 0 What type of physical activity do you participate in: walking Duration: 15-30 minutes/day Frequency: 5-6 times per week Maryam/Gnosticist: Scientologist Special maryam needs: No Seatbelt use: always Helmet use: Yes Helmet use: always Drive intox or ride w/intox 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 Do you feel safe at home: Yes Do you feel safe in your relationship?: Yes
[2025-05-31 11:25] VITALS: PULSE 98
[2025-05-31] MEDS: Ondansetron O.D.T. 4 MG TABEF PO (11:28)
[2025-05-31 11:52] VITALS: BP 125/76; PULSE 94; RESP 20; TEMP 36.7; O2SAT 100
== END 2025-05-31 11:54 | disposition home or self-care (01) ==
PROVIDERS: Emergency Provider Emergency Medicine; PCP Physician Assistant
DX: R00.2 Palpitations (principal); N18.2 Chronic kidney disease, stage 2 (mild); E78.5 Hyperlipidemia, unspecified; Z79.01 Long term (current) use of anticoagulants
CPT/HCPCS: 93005; 99283; 93010

== ENCOUNTER 2025-06-03 07:01 | Emergency (ER) | payer OTHER, SELFPAY ==
[2025-06-03] VITALS (21 sets, daily range): BP systolic 114–139; BP diastolic 61–76; PULSE 71–97; RESP 8–30; TEMP 37.1; O2SAT 92–98
--- NOTE | 2025-06-03 07:00 | RT.EKG_ITS ---
APPROVED REPORT Exam: Resting ECG Reason for Exam: chets pain Patient Location: E HR:91 bpm ECG Measurements Heart Rate 91 AXIS MT 178 P 35 QRSd 96 QRS 27 QT 373 T 38 QTc 459 Conclusion Sinus rhythm...normal P axis, V-rate 60- 99
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
--- NOTE | 2025-06-03 08:00 | DI.RAD_ITS ---
Exam(s) XR RIBS LT W PA LAT CHEST EXAM: XR RIBS LT W PA LAT CHEST CLINICAL HISTORY: pain, fall TECHNIQUE: 2D digital imaging was performed. Six images are obtained. COMPARISON: CR XR CHEST 2V PA LATERAL from 04/25/2024 CR XR CHEST 2V PA LATERAL from 03/14/2025 CR XR RIBS LT W PA LAT CHEST from 05/26/2025 FINDINGS: MEDIASTINUM: Normal. HEART: Normal. PULMONARY VASCULATURE: Normal. LUNGS: Clear. PLEURAL SPACE: No pleural effusion or pneumothorax. BONE:Within normal limits for the patient's age. LEFT RIBS: There are no displaced left rib fractures identified. OTHER FINDINGS:Normal. IMPRESSION: 1. No acute pulmonary findings. 2. Unremarkable left ribs. DATA REPOSITORY: RADIATION DOSE DELIVERED:
[2025-06-03] MEDS: Apixaban 5 MG TAB PO (09:19)
[2025-06-03] MEDS: Lidocaine 5% Patch 1 PATCH TP (09:20)
== END 2025-06-03 14:00 | disposition home or self-care (01) ==
PROVIDERS: Emergency Provider Student in an Organized Health Care Education/Training Program; PCP Physician Assistant
DX: S29.8XXA Other specified injuries of thorax, initial encounter (principal); V58.4XXA Person boarding or alighting a pick-up truck or van injured in noncollision transport accident, initial encounter; R07.89 Other chest pain
CPT/HCPCS: 36415; 93005; 99284; 71046; 71100; 93010; 99283

== ENCOUNTER 2025-06-04 22:33 | Emergency (ER) | payer OTHER, SELFPAY ==
[2025-06-04] VITALS (14 sets, daily range): BP systolic 123–146; BP diastolic 71–97; PULSE 73–113; RESP 12–23; TEMP 37.5; O2SAT 92–99
--- NOTE | 2025-06-04 22:30 | RT.EKG_ITS ---
APPROVED REPORT Exam: Resting ECG Reason for Exam: Chest pain Patient Location: E HR:107 bpm ECG Measurements Heart Rate 107 AXIS PA 175 P 42 QRSd 97 QRS 36 QT 346 T 39 QTc 461 Conclusion Sinus tachycardia...rate> 99 Physician: No STEMI
[2025-06-04 23:06] LABS: Abs Immature Grans 0.04 10^3/uL (0.0-0.06); HCT 29.2 % (40.0-50.0); HGB 8.7 g/dL (13.5-17.5); Immature Grans % 0.5 %; MCH 23.3 pg (27.0-33.0); MCHC 29.8 % (32.0-36.0); MCV 78 fL (80-95); MPV 10.2 fL (8.0-11.0); Platelet Count 352 10^3/uL (130-400); RBC 3.74 10^6/uL (4.36-5.78); RDW 17.2 % (11.8-14.1); RDW-SD 48.5 fL; WBC 8.79 10^3/uL (4.4-10.8)
--- NOTE | 2025-06-04 23:09 | W.ED.GENAD ---
Discharge Plan Disposition Patient Disposition: Home Condition: Good Discharge Details Clinical Impression: Mild anemia, Dehydration Primary Care Provider: Sanjana Pritchett ED Provider: Richy Eagle Home Meds and New Rx's Prescriptions: No Action gabapentin 300 mg capsule 300 mg PO BID Qty: 180 3RF omeprazole 40 mg capsule,delayed release(DR/EC) 40 mg PO DAILY Qty: 90 3RF lorazepam 1 mg tablet 1 mg PO DAILY PRN (Reason: anxiety) Qty: 10 0RF Rx Instructions: Use when considering ER visit cyclobenzaprine 10 mg tablet 10 mg PO TID PRN (Reason: muscle spasm) Qty: 30 3RF Eliquis 5 mg tablet 5 mg PO BID Qty: 60 6RF methadone 10 mg/5 mL solution 100 mg PO QAM calcitriol 0.5 mcg capsule 1 mcg PO .COMPLEX Qty: 270 3RF Rx Instructions: 1 mcg orally t2 tabs qam and 1 tab QHS; folic acid 1 mg tablet 1 mg PO DAILY Qty: 30 6RF calcium carbonate [Tums] 200 mg calcium (500 mg) tablet,chewable 2,000 mg PO BID polyethylene glycol 3350 17 gram powder in packet 17 g PO BID PRN magnesium gluconate 27 mg magnesium (500 mg) tablet 500 mg PO BID Rx Instructions: takes 500mg QAM and 1000mg QHS diclofenac sodium 1 % gel 2 g topical QID Qty: 50 0RF Rx Instructions: apply to single elbow, wrist or hand; for hand includes palm/fingers/back of hand sucralfate 1 gram tablet 1 g PO QACHS Qty: 90 0RF ondansetron 4 mg tablet,disintegrating 4 mg PO Q8H PRNQty: 20 0RF clonazepam 1 mg tablet 1 mg PO BID Qty: 10 0RF prochlorperazine maleate [Compazine] 10 mg tablet 10 mg PO Q6H PRNQty: 10 0RF Discharge Instructions Instructions: Anemia caused by low iron Additional Instructions: At this time your workup is returned reassuring, you do have slightly low hemoglobin level which suggests mild anemia. Please be mindful of further blood draws. As this can worsen your anemia. It would be reasonable to take an iron supplement occasionally, or consume some red meats. If you notice any worsening of your symptoms, or any new symptoms such as vomiting, diarrhea, fever, chills, shortness of breath, chest pain, numbness, weakness, or fainting , please return immediately to the emergency department for reevaluation. Please follow up with your primary care provider as soon as possible for reassessment and reevaluation. As always, it was a pleasure participating in your medical care today. Stand Alone Forms: Portal Information Referrals: Sanjana Pritchett [Primary Care Provider, Medicine] [facility] General Date/Time Provider Initiated Documentation: 06/04/25 22:36. HPI Narrative: This is a 29-year-old male with a past medical history significant for anxiety, depression, high cholesterol, men type I, multiple electrolyte abnormalities with subsequent parathyroidectomy on 03/26/2022 at [facility] [place], PTSD, GERD, cholecystectomy 12/07, bilateral pulmonary embolisms with left-sided pulmonary infarct (diagnosed 02/2025) now on apixaban who presents today for evaluation of left-sided chest discomfort and fatigue. Patient was here yesterday, and had a left-sided chest x-ray which showed no acute abnormality. He admits to 3 days of mild left-sided chest achiness, no pleuritic chest pain. He also admits to fatigue today and is concerned that his magnesium may be low as they have recently decreased his daily magnesium. He denies any fever or chills. No hemoptysis no. No other complaints. He has been taking his medications as prescribed. Related Data Home Medications ?Medication ?Instructions ?Recorded ?Confirmed calcium carbonate (Tums) 2,000 mg PO BID 02/02/23 06/04/25 methadone 10 mg/5 mL oral solution 100 mg PO QAM 06/12/23 06/04/25 gabapentin 300 mg capsule 300 mg PO BID #180 caps 06/01/24 06/04/25 calcitriol 0.5 mcg capsule 1 mcg (2 x 0.5 mcg) PO .COMPLEX 06/29/24 06/04/25 #270 caps omeprazole 40 mg capsule,delayed 40 mg PO DAILY #90 caps 07/27/24 06/04/25 release polyethylene glycol 3350 17 gram 17 g PO BID PRN 10/15/24 06/04/25 oral powder packet lorazepam 1 mg tablet 1 mg PO DAILY PRN anxiety #10 tabs 10/19/24 06/04/25 cyclobenzaprine 10 mg tablet 10 mg PO TID PRN muscle spasm #30 11/16/24 06/04/25 tabs magnesium gluconate 27 mg 500 mg PO BID 01/30/25 06/04/25 magnesium (500 mg) tablet diclofenac sodium 1 % topical gel 2 g topical QID #50 grams 02/03/25 06/04/25 apixaban 5 mg tablet (Eliquis) 5 mg PO BID #60 tabs 03/08/25 06/04/25 ondansetron 4 mg disintegrating 4 mg PO Q8H PRN #20 tabs 03/15/25 06/04/25 tablet sucralfate 1 gram tablet 1 g PO QACHS #90 tabs 03/15/25 06/04/25 prochlorperazine maleate 10 mg 10 mg PO Q6H PRN #10 tabs 03/16/25 06/04/25 tablet (Compazine) folic acid 1 mg tablet 1 mg PO DAILY #30 tabs 03/17/25 06/04/25 clonazepam 1 mg tablet 1 mg PO BID #10 tabs 04/03/25 06/04/25 Previous Rx's ?Medication ?Instructions ?Recorded gabapentin 300 mg capsule 300 mg PO BID #180 caps 06/01/24 calcitriol 0.5 mcg capsule 1 mcg (2 x 0.5 mcg) PO .COMPLEX 06/29/24 #270 caps omeprazole 40 mg capsule,delayed 40 mg PO DAILY #90 caps 07/27/24 release lorazepam 1 mg tablet 1 mg PO DAILY PRN anxiety #10 tabs 10/19/24 cyclobenzaprine 10 mg tablet 10 mg PO TID PRN muscle spasm #30 11/16/24 tabs diclofenac sodium 1 % topical gel 2 g topical QID #50 grams 02/03/25 apixaban 5 mg tablet (Eliquis) 5 mg PO BID #60 tabs 03/08/25 ondansetron 4 mg disintegrating 4 mg PO Q8H PRN #20 tabs 03/15/25 tablet sucralfate 1 gram tablet 1 g PO QACHS #90 tabs 03/15/25 prochlorperazine maleate 10 mg 10 mg PO Q6H PRN #10 tabs 03/16/25 tablet (Compazine) folic acid 1 mg tablet 1 mg PO DAILY #30 tabs 03/17/25 clonazepam 1 mg tablet 1 mg PO BID #10 tabs 04/03/25 Allergies Allergy/AdvReac Type Severity Reaction Status Date / Time doxycycline Allergy Severe Anaphylaxis Verified 06/04/25 22:40 Penicillins Allergy Skin Rash Verified 06/04/25 22:40 marijuana (cannabis) AdvReac Severe Paranoia Verified 06/04/25 22:40 amoxicillin AdvReac Intermediate Nausea Verified 06/04/25 22:40 codeine AdvReac Intermediate pass out Verified 06/04/25 22:40 dextromethorphan (From AdvReac Intermediate got Verified 06/04/25 22:40 NyQuil) really hot and sweaty doxylamine (From NyQuil) AdvReac Intermediate got Verified 06/04/25 22:40 really hot and sweaty pseudoephedrine (From NyQuil) AdvReac Intermediate got Verified 06/04/25 22:40 really hot and sweaty General Stated Complaint: Chest Pain ADRIANA: 3 Exam Narrative Exam Narrative: 1.Const: Well-nourished, Well-developed, appearing stated age 2.Eyes: PERRL, no conjunctival injection, and symmetrical lids. 3.ENT: Atraumatic external nose and ears. Moist MM. Neck: Symmetric, trachea midline, No thyromegaly. 4.CVS: +S1/S2, Peripheral pulses 2+ and equal in all extremities. Brisk capillary refill in all extremities. 5.RESP: Unlabored respiratory effort. Clear to auscultation bilaterally. No wheezes rales or rhonchi 6.GI: Soft, Nontender/Nondistended, No hepatosplenomegaly. No guarding or rebound. 7.MSK: Normocephalic/Atraumatic, Extremities w/o deformity or ttp No cyanosis or clubbing, Normal movement of all extremities 8.Skin: Warm, Dry. No rashes or lesions. 9.Neuro: telecom specialist II-XII grossly intact. Sensation grossly intact, no focal neurologic deficits. 10.Psych: (AAO) x3. Appropriate mood and affect Course Vital Signs Vital signs: Vital Signs Temperature 37.5 C 06/04/25 22:37 Pulse 100 H 06/04/25 22:37 Respiratory Rate 18 06/04/25 22:37 Blood Pressure 123/71 06/04/25 22:37 Pulse Oximetry 99 06/04/25 22:37 Temperature 37.5 C 06/04/25 22:37 Temperature Source Temporal Artery Scan 06/04/25 22:37 Pulse 100 H 06/04/25 22:37 Respiratory Rate 18 06/04/25 22:44 Respiratory Effort Normal, Non-Labored 06/04/25 22:44 Respiratory Depth Normal 06/04/25 22:44 Respiratory Pattern Normal 06/04/25 22:44 Blood Pressure 123/71 06/04/25 22:37 Blood Pressure Position Supine 06/04/25 22:37 Pulse Oximetry 99 06/04/25 22:37 Oxygen Delivery Method Room Air 06/04/25 22:37 Oxygen Flow Rate 0 06/04/25 22:37 Pain Level 4 06/04/25 22:44 Lab/Test Results Lab/Test Results: Laboratory Tests Range/Units 06/04/25 22:43 WBC (4.4-10.8) 10^3/uL 8.79 RBC (4.36-5.78) 10^6/uL 3.74 L Hgb (13.5-17.5) g/dL 8.7 L Hct (40.0-50.0) % 29.2 L MCV (80-95) fL 78 L MCH (27.0-33.0) pg 23.3 L MCHC (32.0-36.0) % 29.8 L RDW (11.8-14.1) % 17.2 H Plt Count (130-400) 10^3/uL 352 MPV (8.0-11.0) fL 10.2 Immature Gran % % 0.5 Neutrophils % % 59.8 Lymphocytes % % 25.9 Monocytes % % 10.9 Eosinophils % % 2.6 Basophils % % 0.3 Nucleated RBC % (0.0-0.3) % 0.0 Absolute Neutrophils (1.2-6.7) 10^3/uL 5.25 Absolute Lymphocytes (1.2-3.4) 10^3/uL 2.28 Absolute Monocytes (0.1-0.8) 10^3/uL 0.96 H Absolute Eosinophils (0.0-0.7) 10^3/uL 0.23 Absolute Basophils (0.0-0.2) 10^3/uL 0.03 Medical Decision Making This is a 29-year-old male with a past medical history significant for anxiety, depression, high cholesterol, men type I, multiple electrolyte abnormalities with subsequent parathyroidectomy on 03/26/2022 at [facility] [place], PTSD, GERD, cholecystectomy 12/07, bilateral pulmonary embolisms with left-sided pulmonary infarct (diagnosed 02/2025) now on apixaban who presents today for evaluation of left-sided chest discomfort and fatigue. Patient was here yesterday, and had a left-sided chest x-ray which showed no acute abnormality. He admits to 3 days of mild left-sided chest achiness, no pleuritic chest pain. He also admits to fatigue today and is concerned that his magnesium may be low as they have recently decreased his daily magnesium. He denies any fever or chills. No hemoptysis no. No other complaints. He has been taking his medications as prescribed. Exam demonstrates well-appearing male, no chest wall tenderness, no abnormal lung sounds. X-ray was reviewed and showed no acute process per radiology. EKG was performed today, shows no STEMI or acute changes of significance. Will evaluate electrolyte status, will monitor closely and reassess. He has no hypoxemia to suggest worsening PE, he is on his apixaban as prescribed. No hypotension. No evidence to suggest pneumothorax or pneumonia. 11:34 PM Laboratory workup has returned, patient demonstrates slightly worsening anemia compared to baseline, down to 8.7. He denies any blood in his stool, and no new hemoptysis. I discussed with the patient that he has a blood draw every 24-48 hours with his frequent ED visits, and this certainly may be a component of his anemia. Recommended thoughtful use of the ED and blood draw moving forward. Electrolytes are normal, creatinine slightly bumped at 1.42, will continue to hydrate here. Patient otherwise feels well, vital signs stable. Troponin and proBNP are normal, no evidence of heart strain. Patient stable for discharge. Discussed red flags for which to return. I have extensively reviewed the treatment plan and discharge instructions with the patient. I have addressed all patient concerns at this time. The patient was made aware of what symptoms to monitor for that would warrant a return to the emergency department. Discussed the plan with the patient, they demonstrate verbal understanding and agreement with our assessment and plan at this time. The documentation in this chart was dictated using [employer] dictation software. Please excuse any dictation errors. Quality:SDOH Health Related Social Needs: Health related social needs lonely/isolated Health related social needs details patient here frequently due to anxiety. PFSH All Active Problems (Updated 06/04/25 @ 23:37 by Richy Eagle DO) Dehydration (Acute) Mild anemia (Acute) Contusion of rib on left side (Acute) Palpitations (Acute) Globus sensation (Acute) Diarrhea (Acute) Shortness of breath (Acute) Adverse effect of local antifungal, anti-infective and anti-inflammatory drugs, initial encounter (Acute) Wrist pain, left (Acute) Tenderness of chest wall (Acute) Pain in right arm (Acute) Cough (Acute) Rhinorrhea (Acute) Acute viral syndrome (Acute) Hemoptysis (Acute) Chest pain (Acute) Chest pain, unspecified (Acute) Palpitations (Acute) Light-headed feeling (Acute) Hyperhomocysteinemia (Acute) Pulmonary infiltrates (Acute) Snoring (Acute) Pleural effusion (Acute) Rt groin pain (Acute) Rash (Acute) Shortness of breath (Acute) Edema, peripheral (Acute) Anxiety (Chronic) Chest discomfort (Acute) Pulmonary embolism and infarction (Acute) Left pulmonary infiltrate on CXR (Acute) Bilateral pulmonary embolism (Acute) Tenderness of neck (Acute) Right elbow pain (Acute) Acute leg pain (Acute) Bronchitis (Acute) Well adult health check (Acute) Obstructive sleep apnea (Chronic) Metabolic dysfunction-associated fatty liver disease (MAFLD) (Acute) Fatty liver (Acute) IBS (irritable bowel syndrome) (Chronic) Obesity (Chronic) Migraine with aura (Acute) Testicle lump (Acute) Pes anserine bursitis (Acute) Left-sided Flower's palsy (Acute) Opiate dependence, continuous (Acute) 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 Possible 2' Methadone, Clnzpm (?). Surg eval (+)/No further action. History of electrolyte imbalance (Acute) Neck pain on left side (Acute) with shoulder, upper back pain.. torticollis, radiating into left hip/leg Pulmonary nodule 1 cm or greater in diameter (Chronic) Therapeutic opioid induced constipation (Acute) Sphincter of Oddi dysfunction (Chronic) Abnormal CT scan, kidney (Acute) Intrahepatic bile duct dilation (Acute) Common bile duct dilatation (Chronic) Has been dilated for quite some time, now more-so. Normal LFTs. Known gallstones. 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 Hypocalcemia Anxiety Depression Hyperlipidemia Family history of multiple endocrine neoplasia, type 1 PTSD (post-traumatic stress disorder) Per pt. states no triggers at this time. Surgical History History of laparoscopic cholecystectomy (~11/2023) H/O parathyroidectomy Family History Mother Anxiety Asthma Depression Sister Anxiety Depression Father Cancer lung & stomach Depression Diabetes Hypertension MEN 1 (multiple endocrine neoplasia) Social History Smoking/Tobacco Use Status: Never Smoking risk assessment performed?: Yes Alcohol Intake: never Drug use: Current Sobriety Substance use type: former substance user, crack/cocaine, heroin and painkillers Details: stopped using substances for the past 4 years Adopted: No Caregiver/Support person: No Foster care: No Household members: none Housing: apartment Number of Children: 0 Communication Needs: None Education Level: high school Do you need help understanding health information?: Never current occupation: [employer] Pets and animals: Yes (Ally) Pets and animals: dog(s) Sexually active: No Do you think of yourself as: straight/heterosexual Current gender identity: male What is your relationship status?: How often do you talk on the phone with friends or family?: twice per week How often do you get together with friends or relatives?: never Do you belong to any clubs or organized social groups?: no Panel score (0-1 are the most socially isolated patients): 0 What type of physical activity do you participate in: walking Duration: 15-30 minutes/day Frequency: 5-6 times per week Maryam/Mandaeism: Religion Special maryam needs: No Seatbelt use: always Helmet use: Yes Helmet use: always Drive intox or ride w/intox commercial collections driver: No Do you feel safe at home: Yes Do you feel safe in your relationship?: Yes
[2025-06-04] MEDS: Lactated Ringers 1,000 ML 1000 ML IV (23:10)
[2025-06-04 23:20] LABS: Magnesium 1.8 mg/dL (1.6-2.6)
[2025-06-04 23:22] LABS: ALT 20 U/L (10-49); AST 29 U/L (<34); Albumin 3.9 g/dL (3.2-5.0); Alkaline Phosphatase 112 U/L (46-116); Anion Gap 7.5 mmol/L (3-11); BUN 9 mg/dL (9-23); Bilirubin, Total 0.3 mg/dL (0.2-1.2); CO2 32.8 mmol/L (20.0-31.0); Calcium 9.2 mg/dL (8.3-10.6); Chloride 100 mmol/L (98-107); Glucose 94 mg/dL (74-106); Potassium 3.9 mmol/L (3.5-5.1); Sodium 140 mmol/L (136-145); Total Protein 7.2 g/dL (5.7-8.2)
[2025-06-04 23:24] LABS: Troponin I < 3 ng/L (<54)
[2025-06-05] VITALS (10 sets, daily range): BP systolic 94–121; BP diastolic 54–81; PULSE 69–92; RESP 13–20; O2SAT 92–95
== END 2025-06-05 00:45 | disposition home or self-care (01) ==
PROVIDERS: Emergency Provider Student in an Organized Health Care Education/Training Program; PCP Physician Assistant
DX: D64.9 Anemia, unspecified (principal); E86.0 Dehydration
CPT/HCPCS: 99283; 99284; 36415; 80053; 93005; 96360; 96361; 83735; 83880; 84484; 85025; 93010

== ENCOUNTER 2025-06-06 12:43 | Emergency (ER) | payer OTHER, SELFPAY ==
--- NOTE | 2025-06-06 12:45 | RT.EKG_ITS ---
APPROVED REPORT Exam: Resting ECG Reason for Exam: Tachy Patient Location: E HR:126 bpm ECG Measurements Heart Rate 126 AXIS LA 160 P 45 QRSd 93 QRS 44 QT 295 T 2 QTc 428 Conclusion Sinus tachycardia...rate> 99
[2025-06-06 12:49] VITALS: BP 123/65; PULSE 120; RESP 20; TEMP 36; O2SAT 96
[2025-06-06 13:05] VITALS: RESP 20
--- NOTE | 2025-06-06 14:24 | W.ED.GENAD ---
Discharge Plan Disposition Patient Disposition: Home Condition: Stable Discharge Details Clinical Impression: Anemia, Palpitations Primary Care Provider: Sanjana Pritchett ED Provider: Lester Bundy Home Meds and New Rx's Prescriptions: New ferrous sulfate [iron] 325 mg (65 mg iron) tablet 325 mg PO DAILY Qty: 30 0RF Continued gabapentin 300 mg capsule 300 mg PO BID Qty: 180 3RF omeprazole 40 mg capsule,delayed release(DR/EC) 40 mg PO DAILY Qty: 90 3RF lorazepam 1 mg tablet 1 mg PO DAILY PRN (Reason: anxiety) Qty: 10 0RF Rx Instructions: Use when considering ER visit cyclobenzaprine 10 mg tablet 10 mg PO TID PRN (Reason: muscle spasm) Qty: 30 3RF Eliquis 5 mg tablet 5 mg PO BID Qty: 60 6RF methadone 10 mg/5 mL solution 100 mg PO QAM calcitriol 0.5 mcg capsule 1 mcg PO .COMPLEX Qty: 270 3RF Rx Instructions: 1 mcg orally t2 tabs qam and 1 tab QHS; folic acid 1 mg tablet 1 mg PO DAILY Qty: 30 6RF calcium carbonate [Tums] 200 mg calcium (500 mg) tablet,chewable 2,000 mg PO BID polyethylene glycol 3350 17 gram powder in packet 17 g PO BID PRN magnesium gluconate 27 mg magnesium (500 mg) tablet 500 mg PO BID Rx Instructions: takes 500mg QAM and 1000mg QHS diclofenac sodium 1 % gel 2 g topical QID Qty: 50 0RF Rx Instructions: apply to single elbow, wrist or hand; for hand includes palm/fingers/back of hand sucralfate 1 gram tablet 1 g PO QACHS Qty: 90 0RF ondansetron 4 mg tablet,disintegrating 4 mg PO Q8H PRNQty: 20 0RF clonazepam 1 mg tablet 1 mg PO BID Qty: 10 0RF prochlorperazine maleate [Compazine] 10 mg tablet 10 mg PO Q6H PRNQty: 10 0RF Discharge Instructions Instructions: Anemia, Possibly From Low Iron, Adult ED, Palpitations ED Additional Instructions: Please follow-up with your primary care physician. Call today. Avoid strenuous activity until cleared by your doctor. Return to the emergency department immediately for any worsening or new concerning symptoms. Stand Alone Forms: Portal Information Referrals: Sanjana Pritchett [Primary Care Provider, Medicine] HPI General Mode of arrival: ambulatory. Date/Time Provider Initiated Documentation: 06/06/25 13:07. Limitations to Documentation: no limitations. Information obtained by: patient. HPI Narrative: HISTORY OF PRESENT ILLNESS 28-year-old male with multiple medical problems including history of anemia, PE, now anticoagulated on apixaban, presenting with palpitations. Patient was at the gym today, walked 2 miles and rowed for 10 minutes. Afterward he felt lightheaded, numbness in tongue and mouth, rapid heart rate. Patient notes that he continues to feel slightly off, dry mouth, mild dizziness. Patient denies bleeding. Patient denies chest pain. Related Data Home Medications ?Medication ?Instructions ?Recorded ?Confirmed calcium carbonate (Tums) 2,000 mg PO BID 02/02/23 06/06/25 methadone 10 mg/5 mL oral solution 100 mg PO QAM 06/12/23 06/06/25 gabapentin 300 mg capsule 300 mg PO BID #180 caps 06/01/24 06/06/25 calcitriol 0.5 mcg capsule 1 mcg (2 x 0.5 mcg) PO .COMPLEX 06/29/24 06/06/25 #270 caps omeprazole 40 mg capsule,delayed 40 mg PO DAILY #90 caps 07/27/24 06/06/25 release polyethylene glycol 3350 17 gram 17 g PO BID PRN 10/15/24 06/06/25 oral powder packet lorazepam 1 mg tablet 1 mg PO DAILY PRN anxiety #10 tabs 10/19/24 06/06/25 cyclobenzaprine 10 mg tablet 10 mg PO TID PRN muscle spasm #30 11/16/24 06/06/25 tabs magnesium gluconate 27 mg 500 mg PO BID 01/30/25 06/06/25 magnesium (500 mg) tablet diclofenac sodium 1 % topical gel 2 g topical QID #50 grams 02/03/25 06/06/25 apixaban 5 mg tablet (Eliquis) 5 mg PO BID #60 tabs 03/08/25 06/06/25 ondansetron 4 mg disintegrating 4 mg PO Q8H PRN #20 tabs 03/15/25 06/06/25 tablet sucralfate 1 gram tablet 1 g PO QACHS #90 tabs 03/15/25 06/06/25 prochlorperazine maleate 10 mg 10 mg PO Q6H PRN #10 tabs 03/16/25 06/06/25 tablet (Compazine) folic acid 1 mg tablet 1 mg PO DAILY #30 tabs 03/17/25 06/06/25 clonazepam 1 mg tablet 1 mg PO BID #10 tabs 04/03/25 06/06/25 ferrous sulfate 325 mg (65 mg 325 mg PO DAILY #30 tabs 06/06/25 iron) tablet (iron) Previous Rx's ?Medication ?Instructions ?Recorded gabapentin 300 mg capsule 300 mg PO BID #180 caps 06/01/24 calcitriol 0.5 mcg capsule 1 mcg (2 x 0.5 mcg) PO .COMPLEX 06/29/24 #270 caps omeprazole 40 mg capsule,delayed 40 mg PO DAILY #90 caps 07/27/24 release lorazepam 1 mg tablet 1 mg PO DAILY PRN anxiety #10 tabs 10/19/24 cyclobenzaprine 10 mg tablet 10 mg PO TID PRN muscle spasm #30 11/16/24 tabs diclofenac sodium 1 % topical gel 2 g topical QID #50 grams 02/03/25 apixaban 5 mg tablet (Eliquis) 5 mg PO BID #60 tabs 03/08/25 ondansetron 4 mg disintegrating 4 mg PO Q8H PRN #20 tabs 03/15/25 tablet sucralfate 1 gram tablet 1 g PO QACHS #90 tabs 03/15/25 prochlorperazine maleate 10 mg 10 mg PO Q6H PRN #10 tabs 03/16/25 tablet (Compazine) folic acid 1 mg tablet 1 mg PO DAILY #30 tabs 03/17/25 clonazepam 1 mg tablet 1 mg PO BID #10 tabs 04/03/25 ferrous sulfate 325 mg (65 mg 325 mg PO DAILY #30 tabs 06/06/25 iron) tablet (iron) Allergies Allergy/AdvReac Type Severity Reaction Status Date / Time doxycycline Allergy Severe Anaphylaxis Verified 06/06/25 15:28 Penicillins Allergy Skin Rash Verified 06/06/25 15:28 marijuana (cannabis) AdvReac Severe Paranoia Verified 06/06/25 15:28 amoxicillin AdvReac Intermediate Nausea Verified 06/06/25 15:28 codeine AdvReac Intermediate pass out Verified 12/22/25 15:28 dextromethorphan (From AdvReac Intermediate got Verified 06/06/25 15:28 NyQuil) really hot and sweaty doxylamine (From NyQuil) AdvReac Intermediate got Verified 06/06/25 15:28 really hot and sweaty pseudoephedrine (From NyQuil) AdvReac Intermediate got Verified 06/06/25 15:28 really hot and sweaty General Stated Complaint: Anxiety ADRIANA: 3 Review of Systems All systems reviewed & are unremarkable except as noted in HPI and below Constitutional Constitutional: Denies fever(s) Exam Const General: cooperative and no acute distress HENNJ Mouth: mucous membranes dry Eyes Conjunctivae: normal conjunctivae Sclera: normal sclerae Neck Neck: trachea midline and supple Resp Auscultation: clear to auscultation bilaterally, no rales, no rhonchi and no wheezes Cardio Rate: regular rate and tachycardic (104) Rhythm: regular rhythm Heart Sounds: no murmurs GI Palpation: soft, not firm, no guarding, no masses, not rigid and nontender Skin General skin exam: no rashes or lesions noted Neuro General: patient alert, patient awake, patient oriented x3 and tone normal Extrem General: no edema Course Vital Signs Vital signs: Vital Signs Temperature 36.0 C L 06/06/25 12:49 Pulse 120 H 06/06/25 12:49 Respiratory Rate 20 06/06/25 12:49 Blood Pressure 123/65 06/06/25 12:49 Pulse Oximetry 96 06/06/25 12:49 Temperature 36.0 C L 06/06/25 12:49 Temperature Source Tympanic 06/06/25 12:49 Pulse 120 H 06/06/25 12:49 Respiratory Rate 20 06/06/25 13:05 Respiratory Effort Normal 06/06/25 13:05 Respiratory Depth Normal 06/06/25 13:05 Respiratory Pattern Normal 06/06/25 13:05 Blood Pressure 123/65 06/06/25 12:49 Blood Pressure Position Sitting 06/06/25 12:49 Pulse Oximetry 96 06/06/25 12:49 Oxygen Delivery Method Room Air 06/06/25 12:49 Oxygen Flow Rate 0 06/06/25 12:49 Medical Decision Making ASSESSMENT AND PLAN 28-year-old male with lightheadedness, dry mouth, numbness in tongue after gym workout. Patient tachycardic on arrival. Normotensive. Saturating well in no respiratory distress. Differential Diagnosis: Anxiety, dehydration, overexertion. ED Course: Pulse 120s on arrival, dropped to 104, - EKG was reviewed and interpreted by me: Please see report sinus tachycardia 126 bpm, no significant changes from prior. - I reviewed past medical record, patient has had persistent anemia. Hemoglobin has been 8.4-9.7 over the past few months. - Will give p.o. fluid and plan to reassess. - Patient reassessed and feeling better after p.o. fluid. Discussed low hemoglobin the patient. I advised he make dietary modifications and take iron supplement. I also encouraged him to speak with his primary care physician about this. Usual and customary discharge instructions were reviewed. Follow-Up: Routine follow-up with PCP Patient Education: Hydration importance, moderation in physical activity. This document was written with the assistance of FATMATA Espino. The patient consented to its use. Quality:SDOH Health Related Social Needs: Health related social needs lonely/isolated Health related social needs details patient here frequently due to anxiety. PFSH All Active Problems (Updated 06/06/25 @ 15:16 by Lester Bundy MD) Palpitations (Acute) Anemia (Chronic) Dehydration (Acute) Mild anemia (Acute) Contusion of rib on left side (Acute) Palpitations (Acute) Globus sensation (Acute) Diarrhea (Acute) Shortness of breath (Acute) Adverse effect of local antifungal, anti-infective and anti-inflammatory drugs, initial encounter (Acute) Wrist pain, left (Acute) Tenderness of chest wall (Acute) Pain in right arm (Acute) Cough (Acute) Rhinorrhea (Acute) Acute viral syndrome (Acute) Hemoptysis (Acute) Chest pain (Acute) Chest pain, unspecified (Acute) Palpitations (Acute) Hyperhomocysteinemia (Acute) Pulmonary infiltrates (Acute) Snoring (Acute) Pleural effusion (Acute) Rt groin pain (Acute) Rash (Acute) Shortness of breath (Acute) Edema, peripheral (Acute) Anxiety (Chronic) Chest discomfort (Acute) Pulmonary embolism and infarction (Acute) Left pulmonary infiltrate on CXR (Acute) Bilateral pulmonary embolism (Acute) Tenderness of neck (Acute) Right elbow pain (Acute) Acute leg pain (Acute) Bronchitis (Acute) Well adult health check (Acute) Obstructive sleep apnea (Chronic) Metabolic dysfunction-associated fatty liver disease (MAFLD) (Acute) Fatty liver (Acute) IBS (irritable bowel syndrome) (Chronic) Obesity (Chronic) Migraine with aura (Acute) Testicle lump (Acute) Pes anserine bursitis (Acute) Left-sided Flower's palsy (Acute) Opiate dependence, continuous (Acute) 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 Possible 2' Methadone, Clnzpm (?). Surg eval (+)/No further action. History of electrolyte imbalance (Acute) Neck pain on left side (Acute) with shoulder, upper back pain.. torticollis, radiating into left hip/leg Pulmonary nodule 1 cm or greater in diameter (Chronic) Therapeutic opioid induced constipation (Acute) Sphincter of Oddi dysfunction (Chronic) Abnormal CT scan, kidney (Acute) Intrahepatic bile duct dilation (Acute) Common bile duct dilatation (Chronic) Has been dilated for quite some time, now more-so. Normal LFTs. Known gallstones. 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 Hypocalcemia Anxiety Depression Hyperlipidemia Family history of multiple endocrine neoplasia, type 1 PTSD (post-traumatic stress disorder) Per pt. states no triggers at this time. Surgical History History of laparoscopic cholecystectomy (~11/2023) H/O parathyroidectomy Family History Mother Anxiety Asthma Depression Sister Anxiety Depression Father Cancer lung & stomach Depression Diabetes Hypertension MEN 1 (multiple endocrine neoplasia) Social History Smoking/Tobacco Use Status: Never Smoking risk assessment performed?: Yes Alcohol Intake: never Drug use: Current Sobriety Substance use type: former substance user, crack/cocaine, heroin and painkillers Details: stopped using substances for the past 4 years Adopted: No Caregiver/Support person: No Foster care: No Household members: none Housing: apartment Number of Children: 0 Communication Needs: None Education Level: high school Do you need help understanding health information?: Never current occupation: [employer] Pets and animals: Yes (Ally) Pets and animals: dog(s) Sexually active: No Do you think of yourself as: straight/heterosexual Current gender identity: male What is your relationship status?: How often do you talk on the phone with friends or family?: twice per week How often do you get together with friends or relatives?: never Do you belong to any clubs or organized social groups?: no Panel score (0-1 are the most socially isolated patients): 0 What type of physical activity do you participate in: walking Duration: 15-30 minutes/day Frequency: 5-6 times per week Maryam/Confucianist: Restorationism Special maryam needs: No Seatbelt use: always Helmet use: Yes Helmet use: always Drive intox or ride w/intox vacuum truck driver: No Do you feel safe at home: Yes Do you feel safe in your relationship?: Yes
[2025-06-06 15:54] VITALS: RESP 20
== END 2025-06-06 15:54 | disposition home or self-care (01) ==
PROVIDERS: Emergency Provider Student in an Organized Health Care Education/Training Program; PCP Physician Assistant
DX: R00.2 Palpitations; D64.9 Anemia, unspecified; Z60.8 Other problems related to social environment
CPT/HCPCS: 93005; 99283; 93010

== ENCOUNTER 2025-06-07 19:57 | Emergency (ER) | payer OTHER, SELFPAY ==
[2025-06-07 19:59] VITALS: BP 134/82; PULSE 92; RESP 20; TEMP 36.8; O2SAT 94
[2025-06-07 20:01] VITALS: BP 134/82; PULSE 92; RESP 20; TEMP 36.8; O2SAT 94
--- NOTE | 2025-06-07 20:30 | DI.CT_ITS ---
Exam(s) CT ABDOMEN PELVIS W EXAM: CT ABDOMEN PELVIS W CLINICAL HISTORY: rlq pain and tenderness. TECHNIQUE: Imaging Protocol: Axial computed tomography images with coronal and sagittal reformatted images were created and reviewed CONTRAST MATERIAL: Intravenous: Omnipaque-350 100cc Oral: None COMPARISON: CT CT ABDOMEN PELVIS W from 04/10/2025 FINDINGS: VISUALIZED LUNG BASES: No nodules nor pleural effusions evident. ABDOMEN: There is no ascites. LIVER: There are no focal hepatic lesions evident. No dilated intrahepatic ducts. GALLBLADDER/BILIARY: Gallbladder is again noted be surgically absent. CBD is not dilated. PANCREAS: No evidence of pancreatic mass nor dilatation of the pancreatic duct. SPLEEN: Spleen is not enlarged. No obvious intrasplenic lesions. Splenic and portal veins are patent. ADRENALS: There are no significant adrenal masses. KIDNEYS:Previously described hypodensities in both kidneys are again noted, the largest being in the superior pole region of the left kidney and measuring 2 cm. Although the density measurements of these findings are higher than typical cysts. There is still possibly that these are cysts and follow-up ultrasound is recommended. There are no renal calculi. No hydronephrosis nor hydroureter.. ABDOMINAL AORTA: Abdominal aorta is not enlarged. LYMPH NODES:There is no retroperitoneal nor paraaortic adenopathy. ABDOMINAL WALL: No evidence of significant anterior abdominal wall hernia. However, there is a fat only containing right inguinal hernia. GI: There is no evidence of bowel obstruction, free air, nor abscess. PELVIS: GI: No evidence of appendicitis. Few minimally prominent lymph nodes are noted in the mesoappendix possibly indicating an element of mesenteric adenitis. The terminal ileum appears unremarkable. No evidence of sigmoid diverticulitis. LYMPH NODES: There is no intrapelvic nor inguinal adenopathy. REPRODUCTIVE: Prostate size normal. Seminal vesicles unremarkable. URINARY BLADDER: No calculi nor obvious masses evident OSSEOUS: No fractures and no significant osseous lesions. IMPRESSION: 1. No evidence of acute appendicitis. 2. There few slightly enlarged lymph nodes in the mesoappendix possibly indicating element of mesenteric adenitis. 3. Previously described lesions in both kidneys are again noted. Should be further studied with ultrasound exam of both kidneys to ensure that these are benign cysts given that there Hounsfield unit measurements are higher than typical cysts. 4. Fat only containing right inguinal hernia. No bowel obstruction. Preliminary [facility] report was reviewed RADIATION DOSE DELIVERED: 1,713.7mGy.cm Total DLP DATA REPOSITORY: All CT scans at this facility are submitted to the National Radiology Data Registry (NRDR) Dose Index Registry (DIR) with the [employer] ([employer]). RADIATION OPTIMIZATION: All CT scans at this facility use at least one of these dose optimization techniques: automated exposure control; mA and/or kV adjustment per patient size (includes targeted exams where dose is matched to clinical indication); or iterative reconstruction.
--- NOTE | 2025-06-07 20:41 | W.ED.GENAD ---
Discharge Plan Disposition Patient Disposition: Home Condition: Stable Discharge Details Clinical Impression: Abdominal pain, acute, right lower quadrant Primary Care Provider: Sanjana Pritchett ED Provider: Lester Bundy Home Meds and New Rx's Prescriptions: Continued gabapentin 300 mg capsule 300 mg PO BID Qty: 180 3RF omeprazole 40 mg capsule,delayed release(DR/EC) 40 mg PO DAILY Qty: 90 3RF lorazepam 1 mg tablet 1 mg PO DAILY PRN (Reason: anxiety) Qty: 10 0RF Rx Instructions: Use when considering ER visit cyclobenzaprine 10 mg tablet 10 mg PO TID PRN (Reason: muscle spasm) Qty: 30 3RF Eliquis 5 mg tablet 5 mg PO BID Qty: 60 6RF methadone 10 mg/5 mL solution 100 mg PO QAM calcitriol 0.5 mcg capsule 1 mcg PO .COMPLEX Qty: 270 3RF Rx Instructions: 1 mcg orally t2 tabs qam and 1 tab QHS; folic acid 1 mg tablet 1 mg PO DAILY Qty: 30 6RF calcium carbonate [Tums] 200 mg calcium (500 mg) tablet,chewable 2,000 mg PO BID polyethylene glycol 3350 17 gram powder in packet 17 g PO BID PRN magnesium gluconate 27 mg magnesium (500 mg) tablet 500 mg PO BID Rx Instructions: takes 500mg QAM and 1000mg QHS diclofenac sodium 1 % gel 2 g topical QID Qty: 50 0RF Rx Instructions: apply to single elbow, wrist or hand; for hand includes palm/fingers/back of hand sucralfate 1 gram tablet 1 g PO QACHS Qty: 90 0RF ondansetron 4 mg tablet,disintegrating 4 mg PO Q8H PRNQty: 20 0RF clonazepam 1 mg tablet 1 mg PO BID Qty: 10 0RF prochlorperazine maleate [Compazine] 10 mg tablet 10 mg PO Q6H PRNQty: 10 0RF ferrous sulfate [iron] 325 mg (65 mg iron) tablet 325 mg PO DAILY Qty: 30 0RF Discharge Instructions Instructions: Abdominal Pain, Adult ED Additional Instructions: Please follow-up with your primary care physician. Return to the emergency department immediately for any worsening or new concerning symptoms. Stand Alone Forms: Portal Information HPI General Mode of arrival: ambulatory. Date/Time Provider Initiated Documentation: 06/07/25 20:05. Limitations to Documentation: no limitations. Information obtained by: patient. HPI Narrative: HISTORY OF PRESENT ILLNESS 29-year-old male well-known to the emergency departmentpresents with severe lower abdominal pain, exacerbated by sitting up and alleviated by movement. Pain radiates towards the hip with a sensation of heat, possibly fever, and mild nausea. No urinary symptoms or testicular pain. Consumed food today. History of appendicitis, no appendectomy. Related Data Home Medications ?Medication ?Instructions ?Recorded ?Confirmed calcium carbonate (Tums) 2,000 mg PO BID 02/02/23 06/07/25 methadone 10 mg/5 mL oral solution 100 mg PO QAM 06/12/23 06/07/25 gabapentin 300 mg capsule 300 mg PO BID #180 caps 06/01/24 06/07/25 calcitriol 0.5 mcg capsule 1 mcg (2 x 0.5 mcg) PO .COMPLEX 06/29/24 06/07/25 #270 caps omeprazole 40 mg capsule,delayed 40 mg PO DAILY #90 caps 07/27/24 06/07/25 release polyethylene glycol 3350 17 gram 17 g PO BID PRN 10/15/24 06/07/25 oral powder packet lorazepam 1 mg tablet 1 mg PO DAILY PRN anxiety #10 tabs 10/19/24 06/07/25 cyclobenzaprine 10 mg tablet 10 mg PO TID PRN muscle spasm #30 11/16/24 06/07/25 tabs magnesium gluconate 27 mg 500 mg PO BID 01/30/25 06/07/25 magnesium (500 mg) tablet diclofenac sodium 1 % topical gel 2 g topical QID #50 grams 02/03/25 06/07/25 apixaban 5 mg tablet (Eliquis) 5 mg PO BID #60 tabs 03/08/25 06/07/25 ondansetron 4 mg disintegrating 4 mg PO Q8H PRN #20 tabs 03/15/25 06/07/25 tablet sucralfate 1 gram tablet 1 g PO QACHS #90 tabs 03/15/25 06/07/25 prochlorperazine maleate 10 mg 10 mg PO Q6H PRN #10 tabs 03/16/25 06/07/25 tablet (Compazine) folic acid 1 mg tablet 1 mg PO DAILY #30 tabs 10/02/25 12/23/25 clonazepam 1 mg tablet 1 mg PO BID #10 tabs 04/03/25 06/07/25 ferrous sulfate 325 mg (65 mg 325 mg PO DAILY #30 tabs 06/06/25 06/07/25 iron) tablet (iron) Previous Rx's ?Medication ?Instructions ?Recorded gabapentin 300 mg capsule 300 mg PO BID #180 caps 06/01/24 calcitriol 0.5 mcg capsule 1 mcg (2 x 0.5 mcg) PO .COMPLEX 06/29/24 #270 caps omeprazole 40 mg capsule,delayed 40 mg PO DAILY #90 caps 07/27/24 release lorazepam 1 mg tablet 1 mg PO DAILY PRN anxiety #10 tabs 10/19/24 cyclobenzaprine 10 mg tablet 10 mg PO TID PRN muscle spasm #30 11/16/24 tabs diclofenac sodium 1 % topical gel 2 g topical QID #50 grams 02/03/25 apixaban 5 mg tablet (Eliquis) 5 mg PO BID #60 tabs 03/08/25 ondansetron 4 mg disintegrating 4 mg PO Q8H PRN #20 tabs 03/15/25 tablet sucralfate 1 gram tablet 1 g PO QACHS #90 tabs 03/15/25 prochlorperazine maleate 10 mg 10 mg PO Q6H PRN #10 tabs 03/16/25 tablet (Compazine) folic acid 1 mg tablet 1 mg PO DAILY #30 tabs 03/17/25 clonazepam 1 mg tablet 1 mg PO BID #10 tabs 04/03/25 ferrous sulfate 325 mg (65 mg 325 mg PO DAILY #30 tabs 06/06/25 iron) tablet (iron) Allergies Allergy/AdvReac Type Severity Reaction Status Date / Time doxycycline Allergy Severe Anaphylaxis Verified 06/07/25 20:02 Penicillins Allergy Skin Rash Verified 06/07/25 20:02 marijuana (cannabis) AdvReac Severe Paranoia Verified 06/07/25 20:02 amoxicillin AdvReac Intermediate Nausea Verified 06/07/25 20:02 codeine AdvReac Intermediate pass out Verified 06/07/25 20:02 dextromethorphan (From AdvReac Intermediate got Verified 06/07/25 20:02 NyQuil) really hot and sweaty doxylamine (From NyQuil) AdvReac Intermediate got Verified 06/07/25 20:02 really hot and sweaty pseudoephedrine (From NyQuil) AdvReac Intermediate got Verified 06/07/25 20:02 really hot and sweaty General Stated Complaint: Abd Prob ADRIANA: 3 Review of Systems All systems reviewed & are unremarkable except as noted in HPI and below Gastrointestinal Gastrointestinal: Reports as per HPI Exam Const General: cooperative and no acute distress HENMT Mouth: moist mucous membranes Eyes Conjunctivae: normal conjunctivae Sclera: normal sclerae Neck Neck: trachea midline and supple Resp Auscultation: clear to auscultation bilaterally, no rales, no rhonchi and no wheezes Cardio Rate: regular rate and not tachycardic Rhythm: regular rhythm GI Palpation: soft, not firm, no guarding, no masses, not rigid and tender in the RLQ Skin General skin exam: no rashes or lesions noted Neuro General: patient alert, patient awake, patient oriented x3 and tone normal Course Vital Signs Vital signs: Vital Signs Temperature 36.8 C 06/07/25 19:59 Pulse 92 H 06/07/25 19:59 Respiratory Rate 20 06/07/25 19:59 Blood Pressure 134/82 06/07/25 19:59 Pulse Oximetry 94 06/07/25 19:59 Temperature 36.8 C 06/07/25 20:01 Pulse 92 H 06/07/25 20:01 Respiratory Rate 20 06/07/25 20:01 Blood Pressure 134/82 06/07/25 20:01 Blood Pressure Position Sitting 06/07/25 20:01 Pulse Oximetry 94 06/07/25 20:01 Oxygen Delivery Method Room Air 06/07/25 20:01 Oxygen Flow Rate 0 06/07/25 20:01 Medical Decision Making ASSESSMENT AND PLAN Initial Assessment: 29-year-old male presenting with right lower abdominal pain with nausea. Patient tender in the right lower quadrant. Hemodynamically stable. Differential Diagnosis: - Appendicitis: Classic presentation. Plan: IV therapy, blood work, CT scan. - Other causes of abdominal pain ED Course: Labs reviewed and nondiagnostic. CT of the abdomen pelvis was interpreted by radiology: No acute findings. All results discussed with patient plan for outpatient follow-up with PCP for reassessment. Usual and customary discharge instructions reviewed. Clinical Impression: Abdominal pain Follow-Up: PCP This document was written with the assistance of FATMATA Espino. The patient consented to its use. Lab Data Lab results reviewed: Yes I reviewed the patient's lab results. Labs: Laboratory Tests Range/Units 06/07/25 06/07/25 20:45 20:55 WBC (4.4-10.8) 10^3/uL 9.47 RBC (4.36-5.78) 10^6/uL 3.73 L Hgb (13.5-17.5) g/dL 8.6 L Hct (40.0-50.0) % 28.8 L MCV (80-95) fL 77 L MCH (27.0-33.0) pg 23.1 L MCHC (32.0-36.0) % 29.9 L RDW (11.8-14.1) % 17.2 H Plt Count (130-400) 10^3/uL 341 MPV (8.0-11.0) fL 10.1 Immature Gran % % 0.5 Neutrophils % % 65.0 Lymphocytes % % 23.9 Monocytes % % 8.7 Eosinophils % % 1.5 Basophils % % 0.4 Nucleated RBC % (0.0-0.3) % 0.0 Absolute Neutrophils (1.2-6.7) 10^3/uL 6.16 Absolute Lymphocytes (1.2-3.4) 10^3/uL 2.26 Absolute Monocytes (0.1-0.8) 10^3/uL 0.82 H Absolute Eosinophils (0.0-0.7) 10^3/uL 0.14 Absolute Basophils (0.0-0.2) 10^3/uL 0.04 Sodium (136-145) mmol/L 140 Potassium (3.5-5.1) mmol/L 3.9 Chloride (98-107) mmol/L 100 Carbon Dioxide (20.0-31.0) mmol/L 32.5 H Anion Gap (3-11) mmol/L 7.5 BUN (9-23) mg/dL 14 Creatinine (0.73-1.18) mg/dL 1.63 H Est GFR (CKD-EPI 2020) (mL/min/1.73m2) 49.38 Glucose (74-106) mg/dL 87 Calcium (8.3-10.6) mg/dL 9.4 Total Bilirubin (0.2-1.2) mg/dL 0.2 AST (<34) U/L 24 ALT (10-49) U/L 22 Alkaline Phosphatase (46-116) U/L 114 Total Protein (5.7-8.2) g/dL 7.6 Albumin (3.2-5.0) g/dL 4.1 Lipase (<53) U/L 22 Urine Color (Yellow) Yellow Urine Clarity (Clear) Clear Urine pH (5-8) 8.0 Ur Specific [place] (1.005-1.025) 1.015 Urine Protein (Neg-Trace) mg/dL Negative Urine Ketones (Negative) mg/dL Negative Urine Blood (Negative) Negative Urine Nitrite (Negative) Negative Urine Bilirubin (Negative) Negative Urine Urobilinogen (Up to 0.2) mg/dL 0.2 Ur Leukocyte Esterase (Negative) Negative Urine Glucose (Negative) mg/dL Negative Quality:SDOH Health Related Social Needs: Health related social needs lonely/isolated Health related social needs details patient here frequently due to anxiety. PFSH All Active Problems Abdominal pain, acute, right lower quadrant (Acute) Palpitations (Acute) Anemia (Chronic) Dehydration (Acute) Mild anemia (Acute) Contusion of rib on left side (Acute) Palpitations (Acute) Globus sensation (Acute) Diarrhea (Acute) Shortness of breath (Acute) Adverse effect of local antifungal, anti-infective and anti-inflammatory drugs, initial encounter (Acute) Wrist pain, left (Acute) Tenderness of chest wall (Acute) Pain in right arm (Acute) Cough (Acute) Rhinorrhea (Acute) Acute viral syndrome (Acute) Hemoptysis (Acute) Chest pain (Acute) Chest pain, unspecified (Acute) Palpitations (Acute) Hyperhomocysteinemia (Acute) Pulmonary infiltrates (Acute) Snoring (Acute) Pleural effusion (Acute) Rt groin pain (Acute) Rash (Acute) Shortness of breath (Acute) Edema, peripheral (Acute) Anxiety (Chronic) Chest discomfort (Acute) Pulmonary embolism and infarction (Acute) Left pulmonary infiltrate on CXR (Acute) Bilateral pulmonary embolism (Acute) Tenderness of neck (Acute) Right elbow pain (Acute) Acute leg pain (Acute) Bronchitis (Acute) Well adult health check (Acute) Obstructive sleep apnea (Chronic) Metabolic dysfunction-associated fatty liver disease (MAFLD) (Acute) Fatty liver (Acute) IBS (irritable bowel syndrome) (Chronic) Obesity (Chronic) Migraine with aura (Acute) Testicle lump (Acute) Pes anserine bursitis (Acute) Left-sided Flower's palsy (Acute) Opiate dependence, continuous (Acute) 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 Possible 2' Methadone, Clnzpm (?). Surg eval (+)/No further action. History of electrolyte imbalance (Acute) Neck pain on left side (Acute) with shoulder, upper back pain.. torticollis, radiating into left hip/leg Pulmonary nodule 1 cm or greater in diameter (Chronic) Therapeutic opioid induced constipation (Acute) Sphincter of Oddi dysfunction (Chronic) Abnormal CT scan, kidney (Acute) Intrahepatic bile duct dilation (Acute) Common bile duct dilatation (Chronic) Has been dilated for quite some time, now more-so. Normal LFTs. Known gallstones. 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 Hypocalcemia Anxiety Depression Hyperlipidemia Family history of multiple endocrine neoplasia, type 1 PTSD (post-traumatic stress disorder) Per pt. states no triggers at this time. Surgical History History of laparoscopic cholecystectomy (~11/2023) H/O parathyroidectomy Family History Mother Anxiety Asthma Depression Sister Anxiety Depression Father Cancer lung & stomach Depression Diabetes Hypertension MEN 1 (multiple endocrine neoplasia) Social History Smoking/Tobacco Use Status: Never Smoking risk assessment performed?: Yes Alcohol Intake: never Drug use: Current Sobriety Substance use type: former substance user, crack/cocaine, heroin and painkillers Details: stopped using substances for the past 4 years Adopted: No Caregiver/Support person: No Foster care: No Household members: none Housing: apartment Number of Children: 0 Communication Needs: None Education Level: high school Do you need help understanding health information?: Never current occupation: [employer] Pets and animals: Yes (Ally) Pets and animals: dog(s) Sexually active: No Do you think of yourself as: straight/heterosexual Current gender identity: male What is your relationship status?: How often do you talk on the phone with friends or family?: twice per week How often do you get together with friends or relatives?: never Do you belong to any clubs or organized social groups?: no Panel score (0-1 are the most socially isolated patients): 0 What type of physical activity do you participate in: walking Duration: 15-30 minutes/day Frequency: 5-6 times per week Maryam/Samaritan: Scientologist Special maryam needs: No Seatbelt use: always Helmet use: Yes Helmet use: always Drive intox or ride w/intox boat driver: No Do you feel safe at home: Yes Do you feel safe in your relationship?: Yes
[2025-06-07 21:14] LABS: Abs Immature Grans 0.05 10^3/uL (0.0-0.06); HCT 28.8 % (40.0-50.0); HGB 8.6 g/dL (13.5-17.5); Immature Grans % 0.5 %; MCH 23.1 pg (27.0-33.0); MCHC 29.9 % (32.0-36.0); MCV 77 fL (80-95); MPV 10.1 fL (8.0-11.0); Platelet Count 341 10^3/uL (130-400); RBC 3.73 10^6/uL (4.36-5.78); RDW 17.2 % (11.8-14.1); RDW-SD 48.3 fL; WBC 9.47 10^3/uL (4.4-10.8)
[2025-06-07] MEDS: Omnipaque 350 MG/ML 100 ML BTL IJ (21:14)
[2025-06-07] MEDS: Normal Saline Flush 10 ML SYR IVP (21:15)
[2025-06-07] MEDS: Normal Saline - Diluent 50 ML VIAL IJ (21:15)
[2025-06-07 21:18] LABS: Glucose Negative (Negative)
[2025-06-07 21:29] LABS: Lipase 22 U/L (<53)
[2025-06-07 21:32] LABS: ALT 22 U/L (10-49); AST 24 U/L (<34); Albumin 4.1 g/dL (3.2-5.0); Alkaline Phosphatase 114 U/L (46-116); Anion Gap 7.5 mmol/L (3-11); BUN 14 mg/dL (9-23); Bilirubin, Total 0.2 mg/dL (0.2-1.2); CO2 32.5 mmol/L (20.0-31.0); Calcium 9.4 mg/dL (8.3-10.6); Chloride 100 mmol/L (98-107); Glucose 87 mg/dL (74-106); Potassium 3.9 mmol/L (3.5-5.1); Sodium 140 mmol/L (136-145); Total Protein 7.6 g/dL (5.7-8.2)
--- NOTE | 2025-06-07 22:16 | DI.VRAD_ITS ---
PROCEDURE INFORMATION: Exam: CT Abdomen And Pelvis With Contrast Exam date and time: 06/07/2025 9:15 PM Age: 29 years old Clinical indication: Abdominal pain; Other: Rlq pain and tenderness TECHNIQUE: Imaging protocol: Computed tomography of the abdomen and pelvis with contrast. Contrast material: OMNI 350; Contrast volume: 100 ml; Contrast route: INTRAVENOUS (IV); COMPARISON: MR ABDOMEN WO/W 04/26/2025 12:40 PM FINDINGS: Liver: Normal. No mass. Gallbladder and biliary ducts: Gallbladder surgically absent. Pancreas: Normal. No ductal dilation. Spleen: Normal. No splenomegaly. Adrenal glands: Normal. No mass. Kidneys and ureters: Stable low-attenuation lesions or cysts both kidneys. No hydronephrosis. Stomach and bowel: Above average stool throughout the colon. No evidence of intestinal perforation or obstruction. Appendix: No evidence of appendicitis. Intraperitoneal space: Unremarkable. No free air. No significant fluid collection. Vasculature: Unremarkable. No abdominal aortic aneurysm. Lymph nodes: Unremarkable. No enlarged lymph nodes. Urinary bladder: Unremarkable as visualized. Reproductive: Unremarkable as visualized. Bones/joints: Unremarkable. No acute fracture. Soft tissues: Fat-containing right inguinal hernia without incarceration. IMPRESSION: No acute findings. Dictated and Authenticated by: Uday Wayne MD. Orderin Niharika Batista MD
[2025-06-07 22:56] VITALS: BP 122/78; PULSE 82; RESP 18; TEMP 36.6; O2SAT 95
== END 2025-06-07 22:58 | disposition home or self-care (01) ==
PROVIDERS: Emergency Provider Student in an Organized Health Care Education/Training Program; PCP Physician Assistant
DX: K40.90 Unilateral inguinal hernia, without obstruction or gangrene, not specified as recurrent (principal); R10.31 Right lower quadrant pain
CPT/HCPCS: 99284; 99285; 36415; 80053; 83690; 74177; 81003; 85025; J3490

== ENCOUNTER 2025-06-10 06:34 | Emergency (ER) | payer OTHER, SELFPAY | END 2025-06-10 19:12 | disposition left against medical advice (07) | PROVIDERS: PCP Physician Assistant | DX: Z53.21 Procedure and treatment not carried out due to patient leaving prior to being seen by health care provider (principal) ==

== ENCOUNTER 2025-06-10 16:57 | Emergency (ER) | payer OTHER, SELFPAY ==
[2025-06-10 17:02] VITALS: BP 125/78; PULSE 103; RESP 16; TEMP 36.9; O2SAT 95
--- NOTE | 2025-06-10 17:30 | DI.RAD_ITS ---
Exam(s) XR SHOULDER RT COMPLETE 2+V EXAM: XR SHOULDER RT COMPLETE 2+V CLINICAL HISTORY: poseterior shoulder pain. TECHNIQUE: 2D digital imaging was performed of the right shoulder. Four images were obtained. AP, Grashey, Y-view and axillary views were obtained. COMPARISON: CR,XR XR SHOULDER LT COMPLETE 2+V from 04/10/2024 FINDINGS: BONES: No acute fracture is present. No bony destructive lesion is seen. JOINTS: No dislocation present. SOFT TISSUE: Normal. IMPRESSION: There is no acute abnormality. DATA REPOSITORY: RADIATION DOSE DELIVERED:
--- NOTE | 2025-06-10 17:44 | W.ED.GENAD ---
Discharge Plan Disposition Patient Disposition: Home Condition: Stable Discharge Details Clinical Impression: Pain in right shoulder Primary Care Provider: Sanjana Pritchett ED Provider: Ricardo Crabtree Home Meds and New Rx's Prescriptions: New cyclobenzaprine 10 mg tablet 10 mg PO TID PRNQty: 20 0RF Continued gabapentin 300 mg capsule 300 mg PO BID Qty: 180 3RF omeprazole 40 mg capsule,delayed release(DR/EC) 40 mg PO DAILY Qty: 90 3RF lorazepam 1 mg tablet 1 mg PO DAILY PRN (Reason: anxiety) Qty: 10 0RF Rx Instructions: Use when considering ER visit cyclobenzaprine 10 mg tablet 10 mg PO TID PRN (Reason: muscle spasm) Qty: 30 3RF Eliquis 5 mg tablet 5 mg PO BID Qty: 60 6RF methadone 10 mg/5 mL solution 100 mg PO QAM calcitriol 0.5 mcg capsule 1 mcg PO .COMPLEX Qty: 270 3RF Rx Instructions: 1 mcg orally t2 tabs qam and 1 tab QHS; folic acid 1 mg tablet 1 mg PO DAILY Qty: 30 6RF calcium carbonate [Tums] 200 mg calcium (500 mg) tablet,chewable 2,000 mg PO BID polyethylene glycol 3350 17 gram powder in packet 17 g PO BID PRN magnesium gluconate 27 mg magnesium (500 mg) tablet 500 mg PO BID Rx Instructions: takes 500mg QAM and 1000mg QHS diclofenac sodium 1 % gel 2 g topical QID Qty: 50 0RF Rx Instructions: apply to single elbow, wrist or hand; for hand includes palm/fingers/back of hand sucralfate 1 gram tablet 1 g PO QACHS Qty: 90 0RF ondansetron 4 mg tablet,disintegrating 4 mg PO Q8H PRNQty: 20 0RF clonazepam 1 mg tablet 1 mg PO BID Qty: 10 0RF prochlorperazine maleate [Compazine] 10 mg tablet 10 mg PO Q6H PRNQty: 10 0RF ferrous sulfate [iron] 325 mg (65 mg iron) tablet 325 mg PO DAILY Qty: 30 0RF Discharge Instructions Additional Instructions: Your x-ray did not show any concerning findings at this time. You can continue to use heating pads as needed. You can also try topical diclofenac. Follow-up with your primary care provider if not improving within a week. If you feel more ill or new symptoms such as high fevers return to emergency department for reevaluation. Stand Alone Forms: Portal Information HPI General Mode of arrival: ambulatory. Date/Time Provider Initiated Documentation: 06/10/25 17:06. Limitations to Documentation: no limitations. Information obtained by: patient. History of Present Illness 29 year old M presents to the emergency department with the chief complaint of right shoulder pain, described as moderate, Quality is described as aching, and is localized to the right and upper extremity. Patient started experiencing this day(s) (1) and it has been constant. Rest improves symptom(s), Movement worsens symptoms . Patient notes no other symptoms.. Related Data Home Medications ?Medication ?Instructions ?Recorded ?Confirmed calcium carbonate (Tums) 2,000 mg PO BID 02/02/23 06/10/25 methadone 10 mg/5 mL oral solution 100 mg PO QAM 06/12/23 06/10/25 gabapentin 300 mg capsule 300 mg PO BID #180 caps 06/01/24 06/10/25 calcitriol 0.5 mcg capsule 1 mcg (2 x 0.5 mcg) PO .COMPLEX 06/29/24 06/10/25 #270 caps omeprazole 40 mg capsule,delayed 40 mg PO DAILY #90 caps 07/27/24 06/10/25 release polyethylene glycol 3350 17 gram 17 g PO BID PRN 10/15/24 06/10/25 oral powder packet lorazepam 1 mg tablet 1 mg PO DAILY PRN anxiety #10 tabs 10/19/24 06/10/25 cyclobenzaprine 10 mg tablet 10 mg PO TID PRN muscle spasm #30 11/16/24 06/10/25 tabs magnesium gluconate 27 mg 500 mg PO BID 01/30/25 06/10/25 magnesium (500 mg) tablet diclofenac sodium 1 % topical gel 2 g topical QID #50 grams 02/03/25 06/10/25 apixaban 5 mg tablet (Eliquis) 5 mg PO BID #60 tabs 03/08/25 06/10/25 ondansetron 4 mg disintegrating 4 mg PO Q8H PRN #20 tabs 03/15/25 06/10/25 tablet sucralfate 1 gram tablet 1 g PO QACHS #90 tabs 03/15/25 06/10/25 prochlorperazine maleate 10 mg 10 mg PO Q6H PRN #10 tabs 03/16/25 06/10/25 tablet (Compazine) folic acid 1 mg tablet 1 mg PO DAILY #30 tabs 03/17/25 06/10/25 clonazepam 1 mg tablet 1 mg PO BID #10 tabs 04/03/25 06/10/25 ferrous sulfate 325 mg (65 mg 325 mg PO DAILY #30 tabs 06/06/25 06/10/25 iron) tablet (iron) cyclobenzaprine 10 mg tablet 10 mg PO TID PRN #20 tabs 06/10/25 Previous Rx's ?Medication ?Instructions ?Recorded gabapentin 300 mg capsule 300 mg PO BID #180 caps 06/01/24 calcitriol 0.5 mcg capsule 1 mcg (2 x 0.5 mcg) PO .COMPLEX 06/29/24 #270 caps omeprazole 40 mg capsule,delayed 40 mg PO DAILY #90 caps 07/27/24 release lorazepam 1 mg tablet 1 mg PO DAILY PRN anxiety #10 tabs 10/19/24 cyclobenzaprine 10 mg tablet 10 mg PO TID PRN muscle spasm #30 11/16/24 tabs diclofenac sodium 1 % topical gel 2 g topical QID #50 grams 02/03/25 apixaban 5 mg tablet (Eliquis) 5 mg PO BID #60 tabs 03/08/25 ondansetron 4 mg disintegrating 4 mg PO Q8H PRN #20 tabs 03/15/25 tablet sucralfate 1 gram tablet 1 g PO QACHS #90 tabs 03/15/25 prochlorperazine maleate 10 mg 10 mg PO Q6H PRN #10 tabs 03/16/25 tablet (Compazine) folic acid 1 mg tablet 1 mg PO DAILY #30 tabs 03/17/25 clonazepam 1 mg tablet 1 mg PO BID #10 tabs 04/03/25 ferrous sulfate 325 mg (65 mg 325 mg PO DAILY #30 tabs 06/06/25 iron) tablet (iron) cyclobenzaprine 10 mg tablet 10 mg PO TID PRN #20 tabs 06/10/25 Allergies Allergy/AdvReac Type Severity Reaction Status Date / Time doxycycline Allergy Severe Anaphylaxis Verified 06/10/25 17:05 Penicillins Allergy Skin Rash Verified 06/10/25 17:05 marijuana (cannabis) AdvReac Severe Paranoia Verified 06/10/25 17:05 amoxicillin AdvReac Intermediate Nausea Verified 06/10/25 17:05 codeine AdvReac Intermediate pass out Verified 06/10/25 17:05 dextromethorphan (From AdvReac Intermediate got Verified 06/10/25 17:05 NyQuil) really hot and sweaty doxylamine (From NyQuil) AdvReac Intermediate got Verified 06/10/25 17:05 really hot and sweaty pseudoephedrine (From NyQuil) AdvReac Intermediate got Verified 06/10/25 17:05 really hot and sweaty General Stated Complaint: Orthopedic ADRIANA: 4 Review of Systems All systems reviewed & are unremarkable except as noted in HPI and below Constitutional Constitutional: Denies chills, Denies fever(s) and Denies weakness Cardiovascular Cardiovascular: Denies chest pain and Denies dyspnea Respiratory Respiratory: Denies cough and Denies dyspnea Gastrointestinal Gastrointestinal: Denies abdominal pain and Denies vomiting Musculoskeletal Musculoskeletal: Reports arthralgias Neurologic Neurologic: Denies weakness Exam Const General: no acute distress Orientation: alert [facility] Head: normal to inspection Ears: external ears normal General nose exam: external nose normal Mouth: moist mucous membranes Eyes General: appearance normal, both eyes and all related structures Neck Neck: normal visual inspection Resp Effort & Inspection: normal respiratory effort and able to speak in complete sentences Cardio Rate: regular rate Skin General skin exam: no rashes or lesions noted Neuro General: patient alert and patient oriented x3 Extrem General: normal to inspection, full ROM and capillary refill normal Psych Mental Status: mental status grossly normal Course Vital Signs Vital signs: Vital Signs Temperature 36.9 C 06/10/25 17:02 Pulse 103 H 06/10/25 17:02 Respiratory Rate 16 06/10/25 17:02 Blood Pressure 125/78 06/10/25 17:02 Pulse Oximetry 95 06/10/25 17:02 Temperature 36.9 C 06/10/25 17:02 Temperature Source Oral 06/10/25 17:02 Pulse 103 H 06/10/25 17:02 Respiratory Rate 16 06/10/25 17:02 Blood Pressure 125/78 06/10/25 17:02 Pulse Oximetry 95 06/10/25 17:02 Oxygen Delivery Method Room Air 06/10/25 17:02 Oxygen Flow Rate 0 06/10/25 17:02 Pain Level 5 06/10/25 17:21 Medical Decision Making 29-year-old male with a history of multiple endocrine neoplasia, prior pulmonary embolus on Eliquis and states he has not missed any doses comes in with right shoulder pain when he woke up this morning. He denies any known trauma, no falls. He denies any fevers or systemic symptoms. He says moving the arm makes the pain worse. He has no visible or palpable deformities of the shoulder. There is no warmth or erythema. There is no swelling of the arm and he has intact distal pulses that are 2+. He has tenderness in the posterior shoulder, suspect this could be bursitis or ligamentous versus tendon issue., will obtain x-rays and reassess. He is able to fully range the shoulder, has no findings on exam or history to suggest septic joint. X-ray negative, patient stable and states he feels better after Flexeril and heating pad. Suspect strain versus bursitis. He is stable for discharge and will follow-up with his PCP if symptoms continue, return precautions given. Differential Diagnosis Differential Diagnosis: bursitis, arthritis Medical Records Medical records reviewed: Yes I reviewed the patient's medical records. Quality:SDOH Health Related Social Needs: Health related social needs lonely/isolated Health related social needs details patient here frequently due to anxiety. PFSH All Active Problems (Updated 06/10/25 @ 18:38 by Ricardo Crabtree MD) Pain in right shoulder (Acute) Abdominal pain, acute, right lower quadrant (Acute) Palpitations (Acute) Anemia (Chronic) Dehydration (Acute) Mild anemia (Acute) Contusion of rib on left side (Acute) Palpitations (Acute) Globus sensation (Acute) Diarrhea (Acute) Shortness of breath (Acute) Adverse effect of local antifungal, anti-infective and anti-inflammatory drugs, initial encounter (Acute) Wrist pain, left (Acute) Tenderness of chest wall (Acute) Pain in right arm (Acute) Cough (Acute) Rhinorrhea (Acute) Acute viral syndrome (Acute) Hemoptysis (Acute) Chest pain (Acute) Chest pain, unspecified (Acute) Palpitations (Acute) Hyperhomocysteinemia (Acute) Pulmonary infiltrates (Acute) Snoring (Acute) Pleural effusion (Acute) Rt groin pain (Acute) Rash (Acute) Shortness of breath (Acute) Edema, peripheral (Acute) Anxiety (Chronic) Chest discomfort (Acute) Pulmonary embolism and infarction (Acute) Left pulmonary infiltrate on CXR (Acute) Bilateral pulmonary embolism (Acute) Tenderness of neck (Acute) Right elbow pain (Acute) Acute leg pain (Acute) Bronchitis (Acute) Well adult health check (Acute) Obstructive sleep apnea (Chronic) Metabolic dysfunction-associated fatty liver disease (MAFLD) (Acute) Fatty liver (Acute) IBS (irritable bowel syndrome) (Chronic) Obesity (Chronic) Migraine with aura (Acute) Testicle lump (Acute) Pes anserine bursitis (Acute) Left-sided Flower's palsy (Acute) Opiate dependence, continuous (Acute) 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 Possible 2' Methadone, Clnzpm (?). Surg eval (+)/No further action. History of electrolyte imbalance (Acute) Neck pain on left side (Acute) with shoulder, upper back pain.. torticollis, radiating into left hip/leg Pulmonary nodule 1 cm or greater in diameter (Chronic) Therapeutic opioid induced constipation (Acute) Sphincter of Oddi dysfunction (Chronic) Abnormal CT scan, kidney (Acute) Intrahepatic bile duct dilation (Acute) Common bile duct dilatation (Chronic) Has been dilated for quite some time, now more-so. Normal LFTs. Known gallstones. 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 Hypocalcemia Anxiety Depression Hyperlipidemia Family history of multiple endocrine neoplasia, type 1 PTSD (post-traumatic stress disorder) Per pt. states no triggers at this time. Surgical History History of laparoscopic cholecystectomy (~11/2023) H/O parathyroidectomy Family History Mother Anxiety Asthma Depression Sister Anxiety Depression Father Cancer lung & stomach Depression Diabetes Hypertension MEN 1 (multiple endocrine neoplasia) Social History Smoking/Tobacco Use Status: Never Smoking risk assessment performed?: Yes Alcohol Intake: never Drug use: Current Sobriety Substance use type: former substance user, crack/cocaine, heroin and painkillers Details: stopped using substances for the past 4 years Adopted: No Caregiver/Support person: No Foster care: No Household members: none Housing: apartment Number of Children: 0 Communication Needs: None Education Level: high school Do you need help understanding health information?: Never current occupation: [employer] Pets and animals: Yes (Ally) Pets and animals: dog(s) Sexually active: No Do you think of yourself as: straight/heterosexual Current gender identity: male What is your relationship status?: How often do you talk on the phone with friends or family?: twice per week How often do you get together with friends or relatives?: never Do you belong to any clubs or organized social groups?: no Panel score (0-1 are the most socially isolated patients): 0 What type of physical activity do you participate in: walking Duration: 15-30 minutes/day Frequency: 5-6 times per week Maryam/Protestant: Voodoo Special maryam needs: No Seatbelt use: always Helmet use: Yes Helmet use: always Drive intox or ride w/intox truck driver helper: No Do you feel safe at home: Yes Do you feel safe in your relationship?: Yes
[2025-06-10] MEDS: Cyclobenzaprine 10 MG TAB PO (17:47)
[2025-06-10] MEDS: Cyclobenzaprine 10 MG TAB, 3 TABS/BTL PO (19:03)
[2025-06-10 19:06] VITALS: BP 114/77; PULSE 100; RESP 18; TEMP 37; O2SAT 94
== END 2025-06-10 18:40 | disposition home or self-care (01) ==
PROVIDERS: Emergency Provider Emergency Medicine; PCP Physician Assistant
DX: M25.511 Pain in right shoulder (principal); Z60.8 Other problems related to social environment
CPT/HCPCS: 99283 ×2; 73030

== ENCOUNTER 2025-06-14 07:25 | Emergency (ER) | payer OTHER, SELFPAY ==
[2025-06-14] VITALS (16 sets, daily range): BP systolic 123–169; BP diastolic 70–76; PULSE 89–125; RESP 15–26; TEMP 37.2; O2SAT 89–96
--- NOTE | 2025-06-14 07:30 | RT.EKG_ITS ---
APPROVED REPORT Exam: Resting ECG Reason for Exam: Chest Pain Patient Location: E HR:119 bpm ECG Measurements Heart Rate 119 AXIS PA 170 P 46 QRSd 96 QRS 30 QT 311 T 35 QTc 436 Conclusion Sinus tachycardia...rate> 99
--- NOTE | 2025-06-14 07:43 | W.ED.GENAD ---
Discharge Plan Disposition Patient Disposition: Home Condition: Stable Discharge Details Clinical Impression: Chest pain Primary Care Provider: Sanjana Pritchett ED Provider: Ricardo Crabtree Home Meds and New Rx's Prescriptions: Continued gabapentin 300 mg capsule 300 mg PO BID Qty: 180 3RF omeprazole 40 mg capsule,delayed release(DR/EC) 40 mg PO DAILY Qty: 90 3RF lorazepam 1 mg tablet 1 mg PO DAILY PRN (Reason: anxiety) Qty: 10 0RF Rx Instructions: Use when considering ER visit cyclobenzaprine 10 mg tablet 10 mg PO TID PRN (Reason: muscle spasm) Qty: 30 3RF Eliquis 5 mg tablet 5 mg PO BID Qty: 60 6RF methadone 10 mg/5 mL solution 100 mg PO QAM calcitriol 0.5 mcg capsule 1 mcg PO .COMPLEX Qty: 270 3RF Rx Instructions: 1 mcg orally t2 tabs qam and 1 tab QHS; folic acid 1 mg tablet 1 mg PO DAILY Qty: 30 6RF calcium carbonate [Tums] 200 mg calcium (500 mg) tablet,chewable 2,000 mg PO BID polyethylene glycol 3350 17 gram powder in packet 17 g PO BID PRN magnesium gluconate 27 mg magnesium (500 mg) tablet 500 mg PO BID Rx Instructions: takes 500mg QAM and 1000mg QHS diclofenac sodium 1 % gel 2 g topical QID Qty: 50 0RF Rx Instructions: apply to single elbow, wrist or hand; for hand includes palm/fingers/back of hand sucralfate 1 gram tablet 1 g PO QACHS Qty: 90 0RF ondansetron 4 mg tablet,disintegrating 4 mg PO Q8H PRNQty: 20 0RF clonazepam 1 mg tablet 1 mg PO BID Qty: 10 0RF prochlorperazine maleate [Compazine] 10 mg tablet 10 mg PO Q6H PRNQty: 10 0RF ferrous sulfate [iron] 325 mg (65 mg iron) tablet 325 mg PO DAILY Qty: 30 0RF cyclobenzaprine 10 mg tablet 10 mg PO TID PRNQty: 20 0RF Discharge Instructions Additional Instructions: Your D-dimer was within normal range and your cardiac biomarkers were negative. Your calcium level was elevated. I would recommend trying to lower your dose of Tums to take from 4000 mg total daily to 3000 mg and have rechecked with your primary care provider in 1-2 weeks. If you feel more ill, have severe worsening pain or high fevers return to the emergency department for reevaluation. Stand Alone Forms: Portal Information HPI General Mode of arrival: ambulatory. Date/Time Provider Initiated Documentation: 06/14/25 07:26. Limitations to Documentation: no limitations. Information obtained by: patient. History of Present Illness 29 year old M presents to the emergency department with the chief complaint of chest pain, described as moderate, Quality is described as sharp, and is localized to the chest. Patient reports no radiation. Patient started experiencing this day(s) (1) and it has been constant. No relieving factors improve symptom(s), Other factors that worsen symptoms (deep breaths) . Patient notes denies diaphoresis and fever/chills. Patient did receive the following treatments prior to arrival, none Related Data Home Medications ?Medication ?Instructions ?Recorded ?Confirmed calcium carbonate (Tums) 2,000 mg PO BID 02/02/23 06/14/25 methadone 10 mg/5 mL oral solution 100 mg PO QAM 06/12/23 06/14/25 gabapentin 300 mg capsule 300 mg PO BID #180 caps 06/01/24 06/14/25 calcitriol 0.5 mcg capsule 1 mcg (2 x 0.5 mcg) PO .COMPLEX 06/29/24 06/14/25 #270 caps omeprazole 40 mg capsule,delayed 40 mg PO DAILY #90 caps 07/27/24 06/14/25 release polyethylene glycol 3350 17 gram 17 g PO BID PRN 10/15/24 06/14/25 oral powder packet lorazepam 1 mg tablet 1 mg PO DAILY PRN anxiety #10 tabs 10/19/24 06/14/25 cyclobenzaprine 10 mg tablet 10 mg PO TID PRN muscle spasm #30 11/16/24 06/14/25 tabs magnesium gluconate 27 mg 500 mg PO BID 01/30/25 06/14/25 magnesium (500 mg) tablet diclofenac sodium 1 % topical gel 2 g topical QID #50 grams 02/03/25 06/14/25 apixaban 5 mg tablet (Eliquis) 5 mg PO BID #60 tabs 03/08/25 06/14/25 ondansetron 4 mg disintegrating 4 mg PO Q8H PRN #20 tabs 03/15/25 06/14/25 tablet sucralfate 1 gram tablet 1 g PO QACHS #90 tabs 03/15/25 06/14/25 prochlorperazine maleate 10 mg 10 mg PO Q6H PRN #10 tabs 03/16/25 06/14/25 tablet (Compazine) folic acid 1 mg tablet 1 mg PO DAILY #30 tabs 03/17/25 06/14/25 clonazepam 1 mg tablet 1 mg PO BID #10 tabs 04/03/25 06/14/25 ferrous sulfate 325 mg (65 mg 325 mg PO DAILY #30 tabs 06/06/25 06/14/25 iron) tablet (iron) cyclobenzaprine 10 mg tablet 10 mg PO TID PRN #20 tabs 06/10/25 06/14/25 Previous Rx's ?Medication ?Instructions ?Recorded gabapentin 300 mg capsule 300 mg PO BID #180 caps 06/01/24 calcitriol 0.5 mcg capsule 1 mcg (2 x 0.5 mcg) PO .COMPLEX 06/29/24 #270 caps omeprazole 40 mg capsule,delayed 40 mg PO DAILY #90 caps 07/27/24 release lorazepam 1 mg tablet 1 mg PO DAILY PRN anxiety #10 tabs 10/19/24 cyclobenzaprine 10 mg tablet 10 mg PO TID PRN muscle spasm #30 11/16/24 tabs diclofenac sodium 1 % topical gel 2 g topical QID #50 grams 02/03/25 apixaban 5 mg tablet (Eliquis) 5 mg PO BID #60 tabs 03/08/25 ondansetron 4 mg disintegrating 4 mg PO Q8H PRN #20 tabs 03/15/25 tablet sucralfate 1 gram tablet 1 g PO QACHS #90 tabs 03/15/25 prochlorperazine maleate 10 mg 10 mg PO Q6H PRN #10 tabs 03/16/25 tablet (Compazine) folic acid 1 mg tablet 1 mg PO DAILY #30 tabs 03/17/25 clonazepam 1 mg tablet 1 mg PO BID #10 tabs 04/03/25 ferrous sulfate 325 mg (65 mg 325 mg PO DAILY #30 tabs 06/06/25 iron) tablet (iron) cyclobenzaprine 10 mg tablet 10 mg PO TID PRN #20 tabs 06/10/25 Allergies Allergy/AdvReac Type Severity Reaction Status Date / Time doxycycline Allergy Severe Anaphylaxis Verified 06/14/25 07:31 Penicillins Allergy Skin Rash Verified 06/14/25 07:31 marijuana (cannabis) AdvReac Severe Paranoia Verified 06/14/25 07:31 amoxicillin AdvReac Intermediate Nausea Verified 06/14/25 07:31 codeine AdvReac Intermediate pass out Verified 06/14/25 07:31 dextromethorphan (From AdvReac Intermediate got Verified 06/14/25 07:31 NyQuil) really hot and sweaty doxylamine (From NyQuil) AdvReac Intermediate got Verified 06/14/25 07:31 really hot and sweaty pseudoephedrine (From NyQuil) AdvReac Intermediate got Verified 06/14/25 07:31 really hot and sweaty General Stated Complaint: Chest Pain ADRIANA: 3 Review of Systems All systems reviewed & are unremarkable except as noted in HPI and below Constitutional Constitutional: Denies chills, Denies fever(s) and Denies weakness Cardiovascular Cardiovascular: Reports chest pain and Denies dyspnea Respiratory Respiratory: Reports cough and Denies dyspnea Gastrointestinal Gastrointestinal: Denies abdominal pain, Denies nausea and Denies vomiting Neurologic Neurologic: Denies weakness Exam Const General: no acute distress Orientation: alert HENNC Head: normal to inspection Ears: external ears normal General nose exam: external nose normal Mouth: moist mucous membranes Eyes General: appearance normal, both eyes and all related structures Neck Neck: normal visual inspection Resp Effort & Inspection: normal respiratory effort and able to speak in complete sentences Auscultation: clear to auscultation bilaterally Cardio Jugular venous pressure: no JVD Rate: tachycardic GI Palpation: soft Skin General skin exam: no rashes or lesions noted Neuro General: patient alert and patient oriented x3 Extrem General: normal to inspection Psych Mental Status: mental status grossly normal Course Vital Signs Vital signs: Vital Signs Temperature 37.2 C 06/14/25 07:27 Pulse 125 H 06/14/25 07:27 Respiratory Rate 15 06/14/25 07:27 Blood Pressure 169/70 H 06/14/25 07:27 Pulse Oximetry 95 06/14/25 07:27 Temperature 37.2 C 06/14/25 07:27 Temperature Source Tympanic 06/14/25 07:27 Pulse 125 H 06/14/25 07:27 Respiratory Rate 15 06/14/25 07:27 Blood Pressure 169/70 H 06/14/25 07:27 Blood Pressure Position Sitting 06/14/25 07:27 Pulse Oximetry 95 06/14/25 07:27 Oxygen Delivery Method Room Air 06/14/25 07:27 Oxygen Flow Rate 0 06/14/25 07:27 Pain Level 4 06/14/25 07:27 Medical Decision Making 29-year-old male with a history of multiple endocrine neoplasia, prior PE on Eliquis and states he has not missed any doses comes in with 1 day of right sided pleuritic chest pain. He says when he takes a deep breath he has a sharp pain in the right lateral chest. He denies any falls, no fevers. He has had a dry cough. No vomiting, no diaphoresis. He is tachycardic on arrival. He has clear lung sounds, no leg swelling or calf tenderness, no abdominal tenderness. No JVD. Given his history we will check CBC CMP and troponins to evaluate for possible ACS. Patient states he wants to try to avoid a CAT scan if possible as he has had numerous numbers in the past, his well score is moderate so we will obtain a D-dimer to screen for PE. He has no tearing back pain and has equal peripheral pulses so I doubt dissection. Patient's D-dimer less than 200, delta troponin negative. His calcium level is 11.9, his heart rate is responded well to fluids and is now 90. I suspect his elevated calcium level was due to the calcium supplements that he takes and also dehydration. He is stable and feels improved. Given reassuring workup I feel he stable for discharge, he is cristhian decrease his dose of his calcium he takes and will have a rechecked with his PCP, return precautions given. Differential Diagnosis Differential Diagnosis: pleurisy, acs, pe Medical Records Medical records reviewed: Yes I reviewed the patient's medical records. Lab Data Lab results reviewed: Yes I reviewed the patient's lab results. ECG Data Attestation: I personally reviewed and interpreted this ECG (s) as follows: Prior ECG tracings: available for review Interpretation: sinus tachycardia rate of 119 no stemi Quality:SDOH Health Related Social Needs: Health related social needs lonely/isolated Health related social needs details patient here frequently due to anxiety. PFSH All Active Problems (Updated 06/14/25 @ 09:18 by Ricardo Crabtree MD) Chest pain (Acute) Pain in right shoulder (Acute) Abdominal pain, acute, right lower quadrant (Acute) Palpitations (Acute) Anemia (Chronic) Dehydration (Acute) Mild anemia (Acute) Contusion of rib on left side (Acute) Palpitations (Acute) Globus sensation (Acute) Diarrhea (Acute) Shortness of breath (Acute) Adverse effect of local antifungal, anti-infective and anti-inflammatory drugs, initial encounter (Acute) Wrist pain, left (Acute) Tenderness of chest wall (Acute) Pain in right arm (Acute) Cough (Acute) Rhinorrhea (Acute) Acute viral syndrome (Acute) Hemoptysis (Acute) Chest pain (Acute) Chest pain, unspecified (Acute) Hyperhomocysteinemia (Acute) Pulmonary infiltrates (Acute) Snoring (Acute) Pleural effusion (Acute) Rt groin pain (Acute) Rash (Acute) Shortness of breath (Acute) Edema, peripheral (Acute) Anxiety (Chronic) Chest discomfort (Acute) Pulmonary embolism and infarction (Acute) Left pulmonary infiltrate on CXR (Acute) Bilateral pulmonary embolism (Acute) Tenderness of neck (Acute) Right elbow pain (Acute) Acute leg pain (Acute) Bronchitis (Acute) Well adult health check (Acute) Obstructive sleep apnea (Chronic) Metabolic dysfunction-associated fatty liver disease (MAFLD) (Acute) Fatty liver (Acute) IBS (irritable bowel syndrome) (Chronic) Obesity (Chronic) Migraine with aura (Acute) Testicle lump (Acute) Pes anserine bursitis (Acute) Left-sided Flower's palsy (Acute) Opiate dependence, continuous (Acute) 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 Possible 2' Methadone, Clnzpm (?). Surg eval (+)/No further action. History of electrolyte imbalance (Acute) Neck pain on left side (Acute) with shoulder, upper back pain.. torticollis, radiating into left hip/leg Pulmonary nodule 1 cm or greater in diameter (Chronic) Therapeutic opioid induced constipation (Acute) Sphincter of Oddi dysfunction (Chronic) Abnormal CT scan, kidney (Acute) Intrahepatic bile duct dilation (Acute) Common bile duct dilatation (Chronic) Has been dilated for quite some time, now more-so. Normal LFTs. Known gallstones. 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 Hypocalcemia Anxiety Depression Hyperlipidemia Family history of multiple endocrine neoplasia, type 1 PTSD (post-traumatic stress disorder) Per pt. states no triggers at this time. Surgical History History of laparoscopic cholecystectomy (~11/2023) H/O parathyroidectomy Family History Mother Anxiety Asthma Depression Sister Anxiety Depression Father Cancer lung & stomach Depression Diabetes Hypertension MEN 1 (multiple endocrine neoplasia) Social History Smoking/Tobacco Use Status: Never Smoking risk assessment performed?: Yes Alcohol Intake: never Drug use: Current Sobriety Substance use type: former substance user, crack/cocaine, heroin and painkillers Details: stopped using substances for the past 4 years Adopted: No Caregiver/Support person: No Foster care: No Household members: none Housing: apartment Number of Children: 0 Communication Needs: None Education Level: high school Do you need help understanding health information?: Never current occupation: [employer] Pets and animals: Yes (Ally) Pets and animals: dog(s) Sexually active: No Do you think of yourself as: straight/heterosexual Current gender identity: male What is your relationship status?: How often do you talk on the phone with friends or family?: twice per week How often do you get together with friends or relatives?: never Do you belong to any clubs or organized social groups?: no Panel score (0-1 are the most socially isolated patients): 0 What type of physical activity do you participate in: walking Duration: 15-30 minutes/day Frequency: 5-6 times per week Maryam/Catholic: Orthodox Special maryam needs: No Seatbelt use: always Helmet use: Yes Helmet use: always Drive intox or ride w/intox hire car driver: No Do you feel safe at home: Yes Do you feel safe in your relationship?: Yes
[2025-06-14 07:48] LABS: Abs Immature Grans 0.02 10^3/uL (0.0-0.06); HCT 30.7 % (40.0-50.0); HGB 9.2 g/dL (13.5-17.5); Immature Grans % 0.3 %; MCH 23.2 pg (27.0-33.0); MCHC 30.0 % (32.0-36.0); MCV 78 fL (80-95); MPV 10.4 fL (8.0-11.0); Platelet Count 393 10^3/uL (130-400); RBC 3.96 10^6/uL (4.36-5.78); RDW 17.2 % (11.8-14.1); RDW-SD 48.5 fL; WBC 7.89 10^3/uL (4.4-10.8)
[2025-06-14] MEDS: Normal Saline 1,000 ML 1000 ML IV (07:52)
[2025-06-14 08:16] LABS: ALT 20 U/L (10-49); AST 21 U/L (<34); Albumin 4.1 g/dL (3.2-5.0); Alkaline Phosphatase 130 U/L (46-116); Anion Gap 6.9 mmol/L (3-11); BUN 9 mg/dL (9-23); Bilirubin, Total 0.2 mg/dL (0.2-1.2); CO2 33.1 mmol/L (20.0-31.0); Calcium 11.9 mg/dL (8.3-10.6); Chloride 101 mmol/L (98-107); Glucose 121 mg/dL (74-106); Lipase 23 U/L (<53); Magnesium 1.9 mg/dL (1.6-2.6); Potassium 3.8 mmol/L (3.5-5.1); Sodium 141 mmol/L (136-145); Total Protein 7.8 g/dL (5.7-8.2); Troponin I < 3 ng/L (<54)
[2025-06-14 08:17] LABS: D-Dimer 157 ng/mlFEU (<500)
[2025-06-14 08:45] LABS: Glucose Negative (Negative)
[2025-06-14 08:52] LABS: C & S Indicated? No; RBC 0-2 HPF (0-2); WBC 0-2 HPF (0-5)
[2025-06-14 09:11] LABS: Troponin I < 3 ng/L (<54)
== END 2025-06-14 10:07 | disposition home or self-care (01) ==
PROVIDERS: Emergency Provider Emergency Medicine; PCP Physician Assistant
DX: R07.9 Chest pain, unspecified (principal); E83.52 Hypercalcemia
CPT/HCPCS: 99284 ×2; 36415; 80053; 83690; 93005; 96360; 81003; 81015; 83735; 84484; 85025; 85379; 93010